=== PATIENT | female | born 1955 | race Caucasian/White ===

== ENCOUNTER 2019-10-05 05:42 | Outpatient (RCR) | payer BC ==
[~2019-10-05] VITALS: Ht 160 cm; Wt 60.2 kg
[2019-10-05 09:23] VITALS: BP 120/71
[2019-10-05 09:48] LABS: BASOPHILS % (AUTO) 0 % (0-10); EOSINOPHILS % (AUTO) 0 % (0-10); HEMATOCRIT 40 % (35-52); HEMOGLOBIN 13.7 G/DL (11.5-16.0); LYMPHOCYTES # (AUTO) 1.1 X 10^3 (1.0-4.0); LYMPHOCYTES % (AUTO) 21 % (12-44); MEAN CORPUSCULAR HEMOGLOBIN 29 PG (25-34); MEAN CORPUSCULAR HGB CONC 34 G/DL (32-36); MEAN CORPUSCULAR VOLUME 85 FL (80-99); MEAN PLATELET VOLUME 8.8 FL (7.4-10.4); MONOCYTES # (AUTO) 0.2 X 10^3 (0.0-1.0); MONOCYTES % (AUTO) 4 % (0-12); NEUTROPHILS # (AUTO) 3.7 X 10^3 (1.8-7.8); NEUTROPHILS % (AUTO) 74 % (42-75); PLATELET COUNT 395 10^3/uL (130-400); RED CELL DISTRIBUTION WIDTH 13.4 % (10.0-14.5); WHITE BLOOD COUNT 5.1 10^3/uL (4.3-11.0)
[2019-10-05 10:02] LABS: BUN/CREATININE RATIO 13; CALCIUM 9.1 MG/DL (8.5-10.1); CARBON DIOXIDE 25 MMOL/L (21-32); CHLORIDE 99 MMOL/L (98-107); CREATININE SERUM 0.93 MG/DL (0.60-1.30); GFR ESTIMATED > 60; GLUCOSE 185 MG/DL (70-105); POTASSIUM 2.6 MMOL/L (3.6-5.0); SODIUM 136 MMOL/L (135-145)
[2019-10-05] MEDS ORDERED: DULO60CA6 PO (10:57)
[2019-10-05] MEDS ORDERED: TOPI100T11 PO (10:57)
[2019-10-05] MEDS ORDERED: HYDR25TA4 PO (10:57)
[2019-10-05] MEDS ORDERED: PARO40TA PO (10:57)
[2019-10-05] MEDS ORDERED: GABA-486 PO (10:57)
[2019-10-05] MEDS ORDERED: MONT10TA21 PO (10:57)
[2019-10-05] MEDS ORDERED: PENT100C3 PO ×2 (10:57)
[2019-10-05] MEDS ORDERED: TRAM50TA3 PO (10:57)
[2019-10-05] MEDS ORDERED: ALPR0.5T PO (10:57)
== END 2019-10-05 11:10 | disposition home or self-care (01) ==
LOC: PREOP 05:42
PROVIDERS: ATTEND Otolaryngology Otolaryngology/Facial Plastic Surgery
DX: Z01.812 Encounter for preprocedural laboratory examination (principal); J32.9 Chronic sinusitis, unspecified; J34.2 Deviated nasal septum; J34.3 Hypertrophy of nasal turbinates; T70.1XXA Sinus barotrauma, initial encounter; Z20.828 Contact with and (suspected) exposure to other viral communicable diseases
CPT/HCPCS: 80048; 85025; 87081; 93005; U0002; 36415; 87635

== ENCOUNTER 2019-10-08 06:48 | Day surgery (SDC) | payer BC ==
[~2019-10-08] VITALS: Ht 160 cm; Wt 60.2 kg
[2019-10-08] VITALS (10 sets, daily range): BP systolic 110–154; BP diastolic 60–95
[~2019-10-08 06:48] MED LIST: ALPR0.5T PO; DULO60CA6 PO; GABA-486 PO; HYDR25TA4 PO; MONT10TA21 PO; PARO40TA PO; PENT100C3 PO; TOPI100T11 PO; TRAM50TA3 PO
[2019-10-08] MEDS ORDERED: HYDROCORTISONE 100 MG/2 ML (Solu-CORTEF) VIAL IV ONE (07:30)
[2019-10-08] MEDS ORDERED: LEVOFLOXACIN 500 MG/100 ML IV 100 ML IV ONE (07:30)
[2019-10-08] MEDS: LACTATED RINGERS 1,000 ML IV PRN ×2 (07:41→09:09)
--- NOTE | 2019-10-08 07:54 | Progress Note-Pre Operative ---
Pre-Operative Progress Note H&P Reviewed The H&P was reviewed, patient examined and no changes noted. Date Seen by Provider: Oct 08, 2019 Time Seen by Provider: 07:45 Date H&P Reviewed: Oct 08, 2019 Time H&P Reviewed: 07:45 Pre-Operative Diagnosis: Bilat Chronic Sinusitis, Bilat HYper of INf Turbs, Dev Septum NAHUM HARVEY MD Oct 08, 2019 07:54
--- OUTSIDE RECORDS SUMMARY | 2019-10-08 08:01 | XMS REPORT ---
Author Author [facility] Medic al Staff, NIKI Martinez Organization [facility] Address [address] [place], [place] [id number] Phone [phone] Summary purpose TRANSITION OF CARE AUTO GENERATION Chief Complaint and Reason for Visit No authorized Reason for Visit (Admitting Diagnosis) is available for this visit . Problem list No authorized problems tracked for continuity of care are available for this vis it. Encounters No authorized problems tracked for encounter diagnoses are available for this vi sit. Medications No medications recorded for this patient visit Allergies, adverse reactions, alerts Allergen Category Ingredient Status Reaction Severity Onset No Known Drug Allergy No known drug allergies No known drug irma rgies Confirmed or Verified No known food allergies No known food allergies No known food al lergies Confirmed or Verified Immunizations No immunizations recorded for this patient visit Relevant diagnostic tests and/or laboratory data No authorized results are available for this patient visit History of procedures No procedures recorded for this patient visit. Functional status No functional or cognitive status observations are available for this visit. Vital signs No authorized vital signs are available for this visit. Social history No Social History or smoking status observations were recorded for this visit. ( Unknown if ever smoked.) Treatment Plan No treatment plan text is available for this visit. Hospital discharge instructions No discharge instruction text is available for this visit.
--- OUTSIDE RECORDS SUMMARY | 2019-10-08 08:01 | XMS REPORT ---
Author Author [facility] Medic al Staff, NIKI Martinez Organization [facility] Address [address] [place], [place] [id number] Phone [phone] Summary purpose TRANSITION OF CARE AUTO GENERATION [...] for this patient visit History of procedures Procedure Code Code Type Description Date Performed Performing Physician [id number] CPT-4 CT MAXILLOFACIAL W/O DYE 10-13-2015 Lyndsay HARVEY Functional status No functional or cognitive status [...]
--- OUTSIDE RECORDS SUMMARY | 2019-10-08 08:02 | XMS REPORT | Clinical Summary ---
Author Author Caitlin, Juliana Martinez Organization [facility] Address Unknown Phone Unavailable Allergies, Adverse Reactions, Alerts Allergy Name Reaction Description Start Date Severity Status Pr ovider No Known Allergies ALFREDO Yanez Conditions or Problems Problem Name Problem Code Onset Date Status Entry Date Provider Comment Standard Description Annotate BRONCHITIS 490 Inactive Hugo Restrepo MD Bronchitis, not specified as acute or chronic FH COLON CANCER V16.0 Active Carlton Hu MD Family history of malignant neoplasm of gastrointestinal tract FH DIABETES V18.0 Active Carlton Hu MD Family history of diabetes mellitus MAXILLARY SINUSITIS 473.0 Resolved Marcy De La Rosa MD PhD Chronic maxillary sinusitis SEASONAL ALLERGIC RHINITIS 477.9 Active 1 Carlton Hu MD Allergic rhinitis, cause unspecified BRONCHITIS, ACUTE WITH MILD BRONCHOSPASM 466.0 Resolv ed Marcy De La Rosa MD PhD Acute bronchitis DYSPNEA 786.05 Resolved Marcy De La Rosa MD PhD Shortness of breath FIBROMYALGIA 729.1 Active Carlton Hu MD Myalgia and myositis, unspecified DIVERTICULOSIS, COLON 562.10 Active Carlton loera MD Diverticulosis of colon (without mention of hemorrhage) HYPERLIPIDEMIA 272.4 Active Carlton Hu MD Other and unspecified hyperlipidemia HEALTH SCREENING V70.0 Resolved Marcy De La Rosa MD PhD Routine general medical examination at a health care facility MAMMOGRAM, ABNORMAL 793.80 Active Carlton linda MD Abnormal mammogram, unspecified CHEST WALL PAIN, ACUTE 786.52 Resolved Liv De La Rosa MD PhD Painful respiration PNEUMONIA 486 Resolved Marcy De La Rosa MD PhD Pneumonia, organism unspecified SINUSITIS 473.9 Resolved Marcy De La Rosa MD PhD Unspecified sinusitis (chronic) CONTACT DERMATITIS 692.9 Resolved Marcy Means PhD Contact dermatitis and other eczema, unspecified cause SINUSITIS, ACUTE 461.9 Resolved Hugo Restrepo MD Acute sinusitis, unspecified CALF PAIN, LEFT 729.5 Active Hugo Restrepo MD Pain in limb SINUSITIS 473.9 Active Carlton Hu MD Unspecified sinusitis (chronic) HEALTH SCREENING V70.0 Active Carlton Hu MD Routine general medical examination at a health care facility HEADACHE 784.0 Active Carlton Hu MD Headache DEPRESSION 311 Refinement Carlton Hu MD Depressive disorder, not elsewhere classified Major depressive disorder, single episode, moderate 311 20 13/04/19 Active Carlton Hu MD Depressive disorder, not els ewhere classified Menopause 627.2 Active Carlton Hu MD Symptomatic menopausal or female climacteric states Headache, chronic 784.0 Active Carlton uH MD Headache Dermatitis, atopic 691.8 Active Carlton beltrán MD Other atopic dermatitis and related conditions Headache 784.0 Active Carlton Hu MD Headache Preventive health care V70.0 Active Carlton bustamante MD Routine general medical examination at a health care facility HEALTH EXAMINATION OF DEFINED SUBPOPULATION V70.5 Act nael Monika [facility] examination of defined subpopulat ions Hip pain, left 719.45 Active Ridge Bess DO Pain in joint involving pelvic region and thigh Pelvic pain, acute 789.09 Resolved Hugo gilmore MD Abdominal pain, other specified site; multiple sites Sinusitis 473.9 Resolved Hugo Restrepo MD Unspecified sinusitis (chronic) Bronchitis-Acute 466.0 Resolved Hugo Restrepo MD Acute bronchitis URI - acute 465.9 Resolved Hugo Restrepo MD Acute upper respiratory infections of unspecified site Pharyngitis acute 462 Resolved Hugo Restrepo MD Acute pharyngitis Rhinitis, acute 460 Resolved Hugo Means Acute nasopharyngitis [common cold] Sinusitis 473.9 Resolved Hugo Restrepo MD Unspecified sinusitis (chronic) Bronchitis 490 Resolved Hugo Restrepo MD Bronchitis, not specified as acute or chronic Upper respiratory infection 465.9 Active Hugo Restrepo MD Acute upper respiratory infections of un specified site Pharyngitis 462 Active Hugo Restrepo MD Acute pharyngitis Onychomycosis 112.3 Active Carlton Hu MD Candidiasis of skin and nails Sinusitis - acute 461.9 Active Elise Garcia APRN Acute sinusitis, unspecified Angina pectoris 413.9 Active Carlton Means Other and unspecified angina pectoris URI 465.9 Inactive Ridge Bess DO Ac duane upper respiratory infections of unspecified site Body Mass Index 35.0-35.9 Adult Refinement 2017 Ridge Bess DO Body Mass Index 35.0-35.9, adult BMI 34-34.9 Refinement Cherelle Torres RN Body Mass Index 35.0-35.9, adult BMI 35-35.9 Active David Lopes APRN Body Mass Index 35.0-35.9, adult Upper respiratory infection, viral 465.9 Active 2 Perez Mora MD Acute upper respiratory infections of un specified site Obesity Class I (BMI 30-34.9) Refinement Jose Torres RN Obesity, unspecified Morbid obesity due to excess calories Refinemen t David Lopes APRN Obesity, unspecified Obesity Class II (BMI 35-39.9) Active Cartlon Hu MD Obesity, unspecified Hypertension, systolic 401.9 Active Carlton bustamante MD Unspecified essential hypertension BRONCHITIS ICD-490 Inactive Hugo Restrepo MD 201 04/09/17 MAXILLARY SINUSITIS ICD-473.0 Inactive Marcy De La Rosa MD PhD BRONCHITIS, ACUTE WITH MILD BRONCHOSPASM ICD-466.0 Inactive Marcy De La Rosa MD PhD DYSPNEA ICD-786.05 Inactive Marcy De La Rosa MD P HEALTH SCREENING ICD-V70.0 Inactive Marcy ya MD PhD CHEST WALL PAIN, ACUTE ICD-786.52 Inactive Liv De La Rosa MD PhD PNEUMONIA ICD-486 Inactive Marcy De La Rosa MD PhD 201 06/01/09 SINUSITIS ICD-473.9 Inactive Marcy De La Rosa MD Ph D CONTACT DERMATITIS ICD-692.9 Inactive Marcy crisostomo MD PhD SINUSITIS, ACUTE ICD-461.9 Inactive Hugo dominguez MD Pelvic pain, acute ICD-789.09 Inactive Hugo Restrepo MD Sinusitis ICD-473.9 Inactive Hugo Restrepo MD Bronchitis-Acute ICD-466.0 Inactive Hugo dominguez MD URI - acute ICD-465.9 Inactive Hugo Restrepo MD Pharyngitis acute ICD-462 Inactive Hugo gore MD Rhinitis, acute ICD-460 Inactive Hugo Ochoa MD Sinusitis ICD-473.9 Inactive Hugo Restrepo MD Bronchitis ICD-490 Inactive Hugo Restrepo MD 201 10/02/29 URI ICD-465.9 Inactive Ridge Bess DO Medication List Medication Instructions Start Date Stop Date Generic Name NDC Status Provider Patient Instruction CYMBALTA 30 MG ORAL CAPSULE DELAYED RELEASE PARTICLES 1 cap by mouth daily for depression DULOXETINE HCL 71810826062 No Longer Active Carlton Hu MD Active CYMBALTA 60 MG ORAL CAPSULE DELAYED RELEASE PARTICLES 1 cap by mouth daily for mood and pain DULOXETINE HCL 32269651827 Active Carlton Hu MD Active TUSSIONEX PENNKINETIC ER 10-8 MG/5ML ORAL SUSPENSION E XTENDED RELEASE 5ml po q12hr PRN Cough HYDROCOD POLST-CHLORPHEN POLST 87566550648 Active 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 MARKET GARDENER Active PREDNISONE 20 MG ORAL TABLET Take 2 tabs day 1 and 2 and 1 t ab days 3 and 4 PREDNISONE 88417282371 No Longer Active 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 MARKET GARDENER Active DOXYCYCLINE HYCLATE 100 MG ORAL CAPSULE 1 cap by mouth twice latasha ly DOXYCYCLINE HYCLATE 67782528058 No Longer Active David Lopes APRN Active TOPAMAX 100 MG ORAL TABLET Take 1 tablet po bid TOPIRAMATE 58049915595 No Longer Active 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 MARKET GARDENER Active TUSSIONEX PENNKINETIC ER 10-8 MG/5ML ORAL SUSPENSION E XTENDED RELEASE 5ml po q12hr PRN Cough HYDROCOD POLST-CHLORPHEN POLST 5 2658857528 No Longer Active 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 MARKET GARDENER Active AUGMENTIN 875-125 MG ORAL TABLET 1 po BID x 10 days 20 18/04/16 AMOXICILLIN-POT CLAVULANATE 26961458876 No Longer Active David Lopes MARKET GARDENER Active PREDNISONE 50 MG ORAL TABLET Take 50 mg dialy for 6 day s 7 PREDNISONE 43032699935 No Longer Active 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 RICEN Active TUSSIONEX PENNKINETIC ER 10-8 MG/5ML ORAL SUSPENSION E XTENDED RELEASE 5ml po q12hr PRN Cough HYDROCOD POLST-CHLORPHEN POLST 5 7497615964 No Longer Active Cherelle Torres RN Active PREDNISONE 20 MG ORAL TABLET two tabs by mouth today, then one tab by mouth days two and three and four PREDNISONE 50396230572 No Lo nger Active Cherelle Torres RN Active AZITHROMYCIN 250 MG ORAL TABLET 2 po qd x 1 day, then 1 po q d x 4 days AZITHROMYCIN 59737970231 No Longer Active Ridge Bses DO Active PREDNISONE 20 MG ORAL TABLET 2 po qd x 5 days P REDNISONE 06008982954 No Longer Active Perez Mora MD Active PROAIR HFA 108 (90 BASE) MCG/ACT INHALATION AEROSOL SO LUTION 2 puffs four times a day as needed ALBUTEROL SULFATE 14814635670 No Long er Active Becky AGUILARA Active ASPIRIN 81 MG ORAL TABLET 1 po qd ASPIRIN 30093986983 Active Carlton Hu MD Active PREDNISONE 20 MG ORAL TABLET 1 tab twice daily for 3 d ay, then one daily for three days PREDNISONE 31511967937 No Longer Active Carlton Hu MD Active AUGMENTIN 875-125 MG ORAL TABLET 1 po BID x 10 days 16/03/22 AMOXICILLIN-POT CLAVULANATE 76668593089 No Longer Active Elise Garcia APRN Active TERBINAFINE HCL 250 MG ORAL TABLET 1 qDay for nail fungus 7 TERBINAFINE HCL 72062282542 No Longer Active Carlton Hu MD A ctive AMOXICILLIN 500 MG ORAL CAPSULE 1 cap by mouth three times a day AMOXICILLIN 66047836478 No Longer Active Carlton Hu MD Active ELMIRON 100 MG ORAL CAPSULE 2 tablets in the am and 1 tablet at hs PENTOSAN POLYSULFATE SODIUM 65617432053 No Longer Active Robert Hu MD Active MUCINEX D 60-600 MG ORAL TABLET EXTENDED RELEASE 12 HOUR 1 t ab po q am PSEUDOEPHEDRINE-GUAIFENESIN 10143742212 No Longer Act nael Carlton Hu MD Active MUCINEX DM MAXIMUM STRENGTH 60-1200 MG ORAL TABLET EXT ENDED RELEASE 12 HOUR 1 tab po q am DEXTROMETHORPHAN-GUAIFENESIN 99106248284 No Longer Active Carlton Hu MD Active TUSSIONEX PENNKINETIC ER 10-8 MG/5ML ORAL SUSPENSION E XTENDED RELEASE 5ml po q12hr PRN Cough HYDROCOD POLST-CHLORPHEN POLST 5 0088658700 No Longer Active Carlton Hu MD Active POTASSIUM CHLORIDE ER 20 MEQ ORAL TABLET EXTENDED RELE ASE Take 1 by mouth 4 times daily for 7 days POTASSIUM CHLORIDE 23387685254 No Longer Active Carlton Hu MD Active ZITHROMAX 250 MG ORAL TABLET 2 po today, then 1 po q days 2-5 20 14/09/04 AZITHROMYCIN 09541223890 No Longer Active Elise Garcia APRN Active TUSSIONEX PENNKINETIC ER 10-8 MG/5ML ORAL SUSPENSION E XTENDED RELEASE 5 ml twice a day as needed for cough HYDROCOD POLST-CHLORPH EN POLST 49822122376 No Longer Active Elise Garcia APRN Active MONTELUKAST SODIUM 10 MG ORAL TABLET 1 po daily for Allergy MONTELUKAST SODIUM 01989956723 Active Carlton Hu MD Ac tive TUSSIONEX PENNKINETIC ER 10-8 MG/5ML ORAL SUSPENSION E XTENDED RELEASE 5ml po q12hr PRN Cough HYDROCOD POLST-CHLORPHEN POLST 5 0412663571 No Longer Active Hugo Restrepo MD Active GABAPENTIN 100 MG ORAL CAPSULE 1 po BID for fibromyalgia GABAPENTIN 76142810328 Active Carlton Hu MD Active LYRICA 100 MG ORAL CAPSULE Take 1 tab po BID for fibromyalgia 20 11/08/21 PREGABALIN 39601187737 No Longer Active Elise Garcia APRN A ctive PREDNISONE 20 MG ORAL TABLET 2 tabs daily for 3 days, 1 tab daily for 3 days, 1/2 tab daily for 2 days PREDNISONE 17959000530 No Longer Active Venullina Cesarl MARKET GARDENER Active TUSSIONEX PENNKINETIC ER 10-8 MG/5ML ORAL SUSPENSION E XTENDED RELEASE 5 mL PO q 12 hrs PRN cough HYDROCOD POLST-CHLORPHEN POLST 860366 65709 No Longer Active Jillina Frazell MARKET GARDENER Active FLUTICASONE PROPIONATE 50 MCG/ACT NASAL SUSPENSION 2 s prays each nostril daily until bottle is empty FLUTICASONE PROPIONATE 587925607 99 No Longer Active Jillina Frazell MARKET GARDENER Active ASMANEX 60 METERED DOSES 220 MCG/INH INHALATION AEROSO L POWDER BREATH ACTIVATED 1 puff bid with rinse after MOMETASONE FUROATE 2759782 4102 No Longer Active Jillina Frazell MARKET GARDENER Active ZITHROMAX Z-REYNA 250 MG ORAL TABLET 2 today, then 1 daily for 4 d ays AZITHROMYCIN 39851068844 No Longer Active Elise Garcia APRN Active TUSSIONEX PENNKINETIC ER 10-8 MG/5ML ORAL SUSPENSION E XTENDED RELEASE 5ml po q12hr PRN Cough HYDROCOD POLST-CHLORPHEN POLST 5 6229600816 No Longer Active Elise Garcia APRN Active PREDNISONE 20 MG ORAL TABLET 2 tabs daily for 3 days, 1 tab daily for 3 days, 1/2 tab daily for 2 days PREDNISONE 33082740725 No Longer Active Diya De Guzman APRN Active AMOXICILLIN 500 MG ORAL CAPSULE 2 po BID x 10 days 201 09/29/08 AMOXICILLIN 76018034746 No Longer Active Diya De Guzman APRN Act nael SINGULAIR 10 MG ORAL TABLET 1 po qday for allergies 20 14/01/12 MONTELUKAST SODIUM 11137047515 No Longer Active Carlton Hu MD Active LEVAQUIN 500 MG ORAL TABLET 1 tablet by mouth daily 20 13/09/24 LEVOFLOXACIN 93034126221 No Longer Active Carlton Hu MD Acti ve FLUTICASONE PROPIONATE 50 MCG/ACT NASAL SUSPENSION 2 s prays each nostril daily for 2 weeks, then 1 spray each nostril daily. FLUTICASONE PROPIONATE 79263630510 Active Carlton Hu MD Active ZITHROMAX 250 MG ORAL TABLET 2 po today, then 1 po q days 2-5 20 13/08/10 AZITHROMYCIN 89963156657 No Longer Active Elise Garcia APRN Active XANAX 0.5 MG ORAL TABLET one tablet by mouth daily prn anxiety 2015 ALPRAZOLAM 07772029175 Active ALFREDO Holly Active CEFDINIR 300 MG ORAL CAPSULE 1 po BID x 10 days CEFDINIR 76248749883 No Longer Active Carlton Hu MD Active ZOCOR 40 MG ORAL TABLET 1 tab by mouth daily SI MVASTATIN 43107580578 No Longer Active Carlton Hu MD Active CYCLOBENZAPRINE HCL 10 MG ORAL TABLET 1 tablet by mouth BID prn had pain CYCLOBENZAPRINE HCL 40496043730 No Longer Active Jayden Hu MD Active LEVOFLOXACIN 500 MG ORAL TABLET 1 tab PO daily x 10 days LEVOFLOXACIN 30301304544 No Longer Active Carlton Hu MD Acti ve PREDNISONE 20 MG ORAL TABLET 3 tab PO qd x 2d, 2 tab P O qd x 2d, 1 tab PO qd x 2d, 1/2 tab PO qd x 2d PREDNISONE 81720147053 No Lo nger Active Carlton Hu MD Active FLUTICASONE PROPIONATE 50 MCG/ACT NASAL SUSPENSION 1 t o 2 sprays each nostril daily FLUTICASONE PROPIONATE 13412261983 No Longer Ac tive Blaine HERNANDEZ Active CHERATUSSIN AC 100-10 MG/5ML ORAL SYRUP 1 tsp by mouth every 4 hours as needed for cough GUAIFENESIN-CODEINE 53474629896 No Longe r Active Blaine HERNANDEZ Active PROMETHAZINE-CODEINE 6.25-10 MG/5ML ORAL SYRUP 1 tsp b y mouth every 6 hours if needed for cough PROMETHAZINE-CODEINE 42071043832 No Longer Active Blaine HERNANDEZ Active CHERATUSSIN AC 100-10 MG/5ML ORAL SYRUP 1 tsp by mouth every 4 hours as needed for cough GUAIFENESIN-CODEINE 66677368496 No Longe r Active Blaine HERNANDEZ Active ZITHROMAX Z-REYNA 250 MG ORAL TABLET 2 today, then 1 daily for 4 d ays AZITHROMYCIN 89346318240 No Longer Active Columba Raida Act nael ZITHROMAX 250 MG ORAL TABLET 2 po today, then 1 po q days 2-5 20 14/03/21 AZITHROMYCIN 96744793689 No Longer Active Carlton Hu MD Active ZITHROMAX Z-REYNA 250 MG ORAL TABLET 2 today, then 1 daily for 4 d ays AZITHROMYCIN 90661056912 No Longer Active Columba Raida Act nael AUGMENTIN 875-125 MG ORAL TABLET 1 po BID x 10 days 13/01/20 AMOXICILLIN-POT CLAVULANATE 33440331931 No Longer Active Diya Daphnebrayan KHAN Active ZITHROMAX 250 MG ORAL TABLET 2 po today, then 1 po q days 2-5 20 12/08/14 AZITHROMYCIN 06208347795 No Longer Active Carlton Hu MD Active TRAMADOL HCL 50 MG ORAL TABLET 1 po tid with ES Tylenol TRAMADOL HCL 29705244753 Active ALFREDO Holly Active PREMARIN 0.625 MG ORAL TABLET TAKE 1 TAB BY MOUTH DAILY ESTROGENS CONJUGATED 36023246207 No Longer Active Ridge Bess DO A ctive CYMBALTA 30 MG ORAL CAPSULE DELAYED RELEASE PARTICLES 1 cap by mouth daily DULOXETINE HCL 53711748085 No Longer Active Ridge tam DO Active AMOXICILLIN 500 MG ORAL CAPSULE 1 tab by mouth 3 times daily x 10 days AMOXICILLIN 02083972374 No Longer Active Carlton bustamante MD Active AMOXICILLIN 500 MG ORAL CAPSULE 1 tab by mouth 3 times daily x 10 days AMOXICILLIN 02328382678 No Longer Active Carlton bustamante MD Active PROMETHAZINE-CODEINE 6.25-10 MG/5ML ORAL SYRUP 1 tsp b y mouth every 8 hours prn cough PROMETHAZINE-CODEINE 21817970545 No Longer Acti ve Carlton Hu MD Active MEDROL 4 MG ORAL TABLET THERAPY PACK 6 pills x 1 day, then 5 pills x 1 day then 4 pills x 1 day, then 3 pills x 1 day, then 2 pills x 1 day, then 1 pill x 1 day, then stop METHYLPREDNISOLONE 84475347937 No Long er Active Perez Mora MD Active AZITHROMYCIN 250 MG ORAL TABLET 2 po qd x 1 day, then 1 po q d x 4 days AZITHROMYCIN 46780114963 No Longer Active Perez Ambriz MD Active SYMBICORT 160-4.5 MCG/ACT INHALATION AEROSOL 2 puffs bid wit h rinse after BUDESONIDE-FORMOTEROL FUMARATE 09793355503 N o Longer Active Perez Mora MD Active LYRICA 75 MG ORAL CAPSULE TAKE 1 CAPSULE BY MOUTH TWICE DAILY PREGABALIN 88242584657 No Longer Active Carlton Hu MD Acti ve TOPAMAX 25 MG ORAL TABLET 1 qHS x 1 week, then 1 BID x 1 week, then 1 qAM and 2 qHS x 1 week, then 2 BID (migraine prevention) T OPIRAMATE 37812363818 No Longer Active Jerica FUENTES Active TOPAMAX 50 MG ORAL TABLET take 1 tab po BID for migraines. 07/02 TOPIRAMATE 36558443304 No Longer Active Jerica FUENTES Active TRIAMCINOLONE ACETONIDE 0.1 % EXTERNAL CREAM apply three roger es daily prn rash TRIAMCINOLONE ACETONIDE 25238180398 No Longer Active Carlton Hu MD Active PAXIL 40 MG ORAL TABLET take 1 tab po qday for depression 0 PAROXETINE HCL 72511807824 Active Carlton Hu MD Active CHERATUSSIN AC 100-10 MG/5ML ORAL SYRUP 5ml po q6hr PRN Cough 20 13/04/14 GUAIFENESIN-CODEINE 84252691069 No Longer Active Carlton Hu MD Active MEDROL 4 MG ORAL TABLET THERAPY PACK 6 tabs on day 1, 5 tabs on day 2, 4 tabs on day 3, 3 tabs on day 4, 2 tabs on day 5, 1 tab on day 6 2013 METHYLPREDNISOLONE 09532696310 No Longer Active Perez Mora MD Active AZITHROMYCIN 250 MG ORAL TABLET 2 po qd x 1 day, then 1 po q d x 4 days AZITHROMYCIN 33668633449 No Longer Active Perez Ambriz MD Active PROPRANOLOL HCL 60 MG ORAL TABLET 1 PO Q D PROPRANOLOL HCL 65747786206 No Longer Active Perez Mora MD Activ e CHERATUSSIN AC 100-10 MG/5ML ORAL SYRUP take one tsp po Q 6h ours prn cough GUAIFENESIN-CODEINE 05294537011 No Longer Active Zia Mora MD Active AUGMENTIN 875-125 MG ORAL TABLET 1 tab by mouth twice daily with food AMOXICILLIN-POT CLAVULANATE 06030875210 No Longer Act nael Mora MD Active CHERATUSSIN AC 100-10 MG/5ML ORAL SYRUP 1 tsp by mouth every 4 hours as needed for cough GUAIFENESIN-CODEINE 39100994322 No Longe r Active Hugo Restrepo MD Active ACETAMINOPHEN-CODEINE #3 300-30 MG ORAL TABLET 1 PO Q 4-6 HRS CA N PAIN ACETAMINOPHEN-CODEINE 12100002658 No Longer Active Hugo Restrepo MD Active LEVAQUIN 500 MG ORAL TABLET take one po QD LEVO FLOXACIN 50437778634 No Longer Active Griffin HERNANDEZ Active PREDNISONE 20 MG ORAL TABLET Take 3 tabs daily for 3 d ays, 2 tabs daily for 3 days, 1 tab daily for 3 days, 1/2 tab daily for 3 days 11/07 PREDNISONE 20340527256 No Longer Active Carlton Hu MD Acti ve AVELOX 400 MG ORAL TABLET 1 tab by mouth daily MOXIFLOXACIN HCL 88089706932 No Longer Active Carlton Hu MD Active CHERATUSSIN AC 100-10 MG/5ML ORAL SYRUP 1 tsp by mouth every 4 hours as needed for cough GUAIFENESIN-CODEINE 11930144124 No Longe r Active Hugo Restrepo MD Active AVELOX 400 MG ORAL TABLET 1 tab by mouth daily MOXIFLOXACIN HCL 91186731628 No Longer Active Marcy De La Rosa MD PhD Active TERBINAFINE HCL 250 MG ORAL TABLET 1 qDay T ERBINAFINE HCL 79801004697 No Longer Active Marcy De La Rosa MD PhD Active CHERATUSSIN AC 100-10 MG/5ML ORAL SYRUP 1 tsp by mouth every 4 hours as needed for cough GUAIFENESIN-CODEINE 63088647956 No Longe r Active Marcy De La Rosa MD PhD Active AVELOX 400 MG ORAL TABLET 1 tab by mouth daily MOXIFLOXACIN HCL 18373992992 No Longer Active Marcy De La Rosa MD PhD Active HYDROCODONE-ACETAMINOPHEN 5-325 MG ORAL TABLET 1 po q 6hr PRN co ugh HYDROCODONE-ACETAMINOPHEN 39130760855 No Longer Active Marcy De La Rosa MD PhD Active PREDNISONE 20 MG ORAL TABLET 2 tabs daily for 3 days, 1 tab daily for 3 days, 1/2 tab daily for 2 days PREDNISONE 37879267219 No Longer Active Carlton Hu MD Active CEFDINIR 300 MG ORAL CAPSULE by mouth twice a day 2011 CEFDINIR 95690249373 No Longer Active Carlton Hu MD Acti ve HYDROCHLOROTHIAZIDE 25 MG ORAL TABLET 1 TAB PO DAILY HYDROCHLOROTHIAZIDE 12179712025 Active Carlton Hu MD A ctive ACETAMINOPHEN-CODEINE #3 300-30 MG ORAL TABLET 1 tablet po q 4-6 hrs prn pain ACETAMINOPHEN-CODEINE 33579610051 No Longer Active Ridge Bess DO Active ZITHROMAX 250 MG ORAL TABLET 2 po today, then 1 po q days 2-5 20 03/07/07 AZITHROMYCIN 94155977128 No Longer Active Carlton Hu MD Active CHERATUSSIN AC 100-10 MG/5ML ORAL SYRUP take 1 tsp po q4-6 h ours prn cough GUAIFENESIN-CODEINE 36110387519 No Longer Active Jayden Hu MD Active ACETAMINOPHEN-CODEINE #3 300-30 MG ORAL TABLET 1 PO Q 4-6 HR PRN PAIN ACETAMINOPHEN-CODEINE 56582621587 No Longer Active Arnol Hu MD Active LORTAB 7.5-500 MG/15ML ORAL ELIXIR 7.5 ml po q 4 hour prn cough HYDROCODONE-ACETAMINOPHEN 34311234468 No Longer Active Carlton Hu MD Active PREDNISONE 20 MG ORAL TABLET 1 po bid 3 days, then 1 po q day 3 days PREDNISONE 70569318344 No Longer Active Carlton Hu MD Active CEFDINIR 300 MG ORAL CAPSULE by mouth twice a day 2011 CEFDINIR 85816065531 No Longer Active Carlton Hu MD Acti ve CEFDINIR 300 MG ORAL CAPSULE by mouth twice a day 2010 CEFDINIR 58742711603 No Longer Active Carlton Hu MD Acti ve CEFDINIR 300 MG ORAL CAPSULE by mouth twice a day 2010 CEFDINIR 49326019215 No Longer Active Carlton Hu MD Acti ve TESSALON PERLES 100 MG ORAL CAPSULE 1 tablet by mouth 3 times daily as needed for cough BENZONATATE 99807487056 No Longer Active Carlton Hu MD Active CEFDINIR 300 MG ORAL CAPSULE by mouth twice a day 2010 CEFDINIR 14128575735 No Longer Active Carlton Hu MD Acti ve ZITHROMAX Z-REYNA 250 MG ORAL TABLET 2 today, then 1 daily for 4 d ays AZITHROMYCIN 37994795641 No Longer Active Hugo Restrepo MD Active TESSALON PERLES 100 MG ORAL CAPSULE 1 tablet by mouth 3 times daily as needed for cough TESSALON PERLES 100 MG ORAL CAPSULE 17775 7 BENZONATATE Inactive PREDNISONE 20 MG ORAL TABLET 1 po bid 3 days, then 1 po q day 3 days PREDNISONE 20 MG ORAL TABLET 172117 PREDNISONE [place] ctive LORTAB 7.5-500 MG/15ML ORAL ELIXIR 7.5 ml po q 4 hour prn cough LORTAB 7.5-500 MG/15ML ORAL ELIXIR HYDROCODONE-A CETAMINOPHEN Inactive ACETAMINOPHEN-CODEINE #3 300-30 MG ORAL TABLET 1 PO Q 4-6 HR PRN PAIN ACETAMINOPHEN-CODEINE #3 300-30 MG ORAL TABLET ACETAMINOPHEN-CODEINE Inactive CHERATUSSIN AC 100-10 MG/5ML ORAL SYRUP take 1 tsp po q4-6 h ours prn cough CHERATUSSIN AC 100-10 MG/5ML ORAL SYRUP 540753 GUAIFENESIN-CODEINE Inactive ACETAMINOPHEN-CODEINE #3 300-30 MG ORAL TABLET 1 tablet po q 4-6 hrs prn pain ACETAMINOPHEN-CODEINE #3 300-30 MG ORAL TABLET ACETAMINOPHEN-CODEINE Inactive HYDROCODONE-ACETAMINOPHEN 5-325 MG ORAL TABLET 1 po q 6hr PRN co ugh HYDROCODONE-ACETAMINOPHEN 5-325 MG ORAL TABLET 943384 HYDROCODONE-ACETAMINOPHEN Inactive AVELOX 400 MG ORAL TABLET 1 tab by mouth daily AVELOX 400 MG ORAL TABLET 488379 MOXIFLOXACIN HCL Inactive CHERATUSSIN AC 100-10 MG/5ML ORAL SYRUP 1 tsp by mouth every 4 hours as needed for cough CHERATUSSIN AC 100-10 MG/5ML ORAL SYRUP 9 63691 GUAIFENESIN-CODEINE Inactive TERBINAFINE HCL 250 MG ORAL TABLET 1 qDay 07/08 TERBINAFINE HCL 250 MG ORAL TABLET 676899 TERBINAFINE HCL Inactive CHERATUSSIN AC 100-10 MG/5ML ORAL SYRUP 1 tsp by mouth every 4 hours as needed for cough CHERATUSSIN AC 100-10 MG/5ML ORAL SYRUP 9 19884 GUAIFENESIN-CODEINE Inactive ACETAMINOPHEN-CODEINE #3 300-30 MG ORAL TABLET 1 PO Q 4-6 HRS CA N PAIN ACETAMINOPHEN-CODEINE #3 300-30 MG ORAL TABLET ACETAMINOPHEN-CODEINE Inactive CHERATUSSIN AC 100-10 MG/5ML ORAL SYRUP 1 tsp by mouth every 4 hours as needed for cough CHERATUSSIN AC 100-10 MG/5ML ORAL SYRUP 9 04454 GUAIFENESIN-CODEINE Inactive AUGMENTIN 875-125 MG ORAL TABLET 1 tab by mouth twice daily with food AUGMENTIN 875-125 MG ORAL TABLET 248308 AMOXICIL MADELINE-POT CLAVULANATE Inactive CHERATUSSIN AC 100-10 MG/5ML ORAL SYRUP take one tsp po Q 6h ours prn cough CHERATUSSIN AC 100-10 MG/5ML ORAL SYRUP 293625 GUAIFENESIN-CODEINE Inactive PROPRANOLOL HCL 60 MG ORAL TABLET 1 PO Q D PROPRANOLOL HCL 60 MG ORAL TABLET 668083 PROPRANOLOL HCL Inactive TOPAMAX 50 MG ORAL TABLET take 1 tab po BID for migraines. 07/02 TOPAMAX 50 MG ORAL TABLET 227606 TOPIRAMATE Inacti ve TOPAMAX 25 MG ORAL TABLET 1 qHS x 1 week, then 1 BID x 1 week, then 1 qAM and 2 qHS x 1 week, then 2 BID (migraine prevention) TOPAMAX 25 MG ORAL TABLET 751480 TOPIRAMATE Inactive LYRICA 75 MG ORAL CAPSULE TAKE 1 CAPSULE BY MOUTH TWICE DAILY LYRICA 75 MG ORAL CAPSULE PREGABALIN Inactive SYMBICORT 160-4.5 MCG/ACT INHALATION AEROSOL 2 puffs bid wit h rinse after SYMBICORT 160-4.5 MCG/ACT INHALATION AEROSOL BUDESONIDE- FORMOTEROL FUMARATE Inactive PROMETHAZINE-CODEINE 6.25-10 MG/5ML ORAL SYRUP 1 tsp b y mouth every 8 hours prn cough PROMETHAZINE-CODEINE 6.25-10 MG/ 5ML ORAL SYRUP [id number] PROMETHAZINE-CODEINE Inactive CYMBALTA 30 MG ORAL CAPSULE DELAYED RELEASE PARTICLES 1 cap by mouth daily CYMBALTA 30 MG ORAL CAPSULE DELAYED RELE ASE PARTICLES 319294 DULOXETINE HCL Inactive PREMARIN 0.625 MG ORAL TABLET TAKE 1 TAB BY MOUTH DAILY PREMARIN 0.625 MG ORAL TABLET ESTROGENS CONJUGATED Inactive CHERATUSSIN AC 100-10 MG/5ML ORAL SYRUP 1 tsp by mouth every 4 hours as needed for cough CHERATUSSIN AC 100-10 MG/5ML ORAL SYRUP 9 85907 GUAIFENESIN-CODEINE Inactive PROMETHAZINE-CODEINE 6.25-10 MG/5ML ORAL SYRUP 1 tsp b y mouth every 6 hours if needed for cough PROMETHAZINE-CODEINE 6.25-10 MG/5ML ORAL SYRUP 264772 PROMETHAZINE-CODEINE Inactive CHERATUSSIN AC 100-10 MG/5ML ORAL SYRUP 1 tsp by mouth every 4 hours as needed for cough CHERATUSSIN AC 100-10 MG/5ML ORAL SYRUP 9 25255 GUAIFENESIN-CODEINE Inactive FLUTICASONE PROPIONATE 50 MCG/ACT NASAL SUSPENSION 1 t o 2 sprays each nostril daily FLUTICASONE PROPIONATE 50 MCG/AC T NASAL SUSPENSION [id number] FLUTICASONE PROPIONATE Inactive PREDNISONE 20 MG ORAL TABLET 3 tab PO qd x 2d, 2 tab P O qd x 2d, 1 tab PO qd x 2d, 1/2 tab PO qd x 2d PREDNISONE 20 MG ORAL TAB LET 783432 PREDNISONE Inactive LEVOFLOXACIN 500 MG ORAL TABLET 1 tab PO daily x 10 days LEVOFLOXACIN 500 MG ORAL TABLET 332527 LEVOFLOXACIN Inactive CYCLOBENZAPRINE HCL 10 MG ORAL TABLET 1 tablet by mouth BID prn had pain CYCLOBENZAPRINE HCL 10 MG ORAL TABLET 601443 CYCLOBENZAPRINE HCL Inactive ZOCOR 40 MG ORAL TABLET 1 tab by mouth daily 4 ZOCOR 40 MG ORAL TABLET 793925 SIMVASTATIN Inactive TUSSIONEX PENNKINETIC ER 10-8 MG/5ML ORAL SUSPENSION E XTENDED RELEASE 5ml po q12hr PRN Cough TUSSIONEX PENNKINETI C ER 10-8 MG/5ML ORAL SUSPENSION EXTENDED RELEASE HYDROCOD POLST-CHLORPHEN POLST I nactive ASMANEX 60 METERED DOSES 220 MCG/INH INHALATION AEROSO L POWDER BREATH ACTIVATED 1 puff bid with rinse after ASMANEX 60 M ETERED DOSES 220 MCG/INH INHALATION AEROSOL POWDER BREATH ACTIVATED MOMETASON E FUROATE Inactive FLUTICASONE PROPIONATE 50 MCG/ACT NASAL SUSPENSION 2 s prays each nostril daily until bottle is empty FLUTICASONE PROPIO EFE 50 MCG/ACT NASAL SUSPENSION [id number] FLUTICASONE PROPIONATE Inactive TUSSIONEX PENNKINETIC ER 10-8 MG/5ML ORAL SUSPENSION E XTENDED RELEASE 5 mL PO q 12 hrs PRN cough TUSSIONEX PENNKINETI C ER 10-8 MG/5ML ORAL SUSPENSION EXTENDED RELEASE HYDROCOD POLST-CHLORPHEN POLST I nactive LYRICA 100 MG ORAL CAPSULE Take 1 tab po BID for fibromyalgia 20 11/08/21 LYRICA 100 MG ORAL CAPSULE PREGABALIN Inact nael TUSSIONEX PENNKINETIC ER 10-8 MG/5ML ORAL SUSPENSION E XTENDED RELEASE 5ml po q12hr PRN Cough TUSSIONEX PENNKINETI C ER 10-8 MG/5ML ORAL SUSPENSION EXTENDED RELEASE HYDROCOD POLST-CHLORPHEN POLST I nactive TUSSIONEX PENNKINETIC ER 10-8 MG/5ML ORAL SUSPENSION E XTENDED RELEASE 5 ml twice a day as needed for cough TUSSIONEX LISA KINETIC ER 10-8 MG/5ML ORAL SUSPENSION EXTENDED RELEASE HYDROCOD POLST-CHLOR PHEN POLST Inactive POTASSIUM CHLORIDE ER 20 MEQ ORAL TABLET EXTENDED RELE ASE Take 1 by mouth 4 times daily for 7 days POTASSIUM CHLORID E ER 20 MEQ ORAL TABLET EXTENDED RELEASE POTASSIUM CHLORIDE Inactive TUSSIONEX PENNKINETIC ER 10-8 MG/5ML ORAL SUSPENSION E XTENDED RELEASE 5ml po q12hr PRN Cough TUSSIONEX PENNKINETI C ER 10-8 MG/5ML ORAL SUSPENSION EXTENDED RELEASE HYDROCOD POLST-CHLORPHEN POLST I nactive MUCINEX DM MAXIMUM STRENGTH 60-1200 MG ORAL TABLET EXT ENDED RELEASE 12 HOUR 1 tab po q am MUCINEX DM MAXIMUM S TRENGTH 60-1200 MG ORAL TABLET EXTENDED RELEASE 12 HOUR DEXTROMETHORPHAN-GUAIFENESIN Inactive MUCINEX D 60-600 MG ORAL TABLET EXTENDED RELEASE 12 HOUR 1 t ab po q am MUCINEX D 60-600 MG ORAL TABLET EXTENDED RELEASE 12 HOUR PSEUDOEPHEDRINE-GUAIFENESIN Inactive ELMIRON 100 MG ORAL CAPSULE 2 tablets in the am and 1 tablet at hs ELMIRON 100 MG ORAL CAPSULE PENTOSAN POLYSULFATE SODIUM Inactive PREDNISONE 20 MG ORAL TABLET 1 tab twice daily for 3 d ay, then one daily for three days PREDNISONE 20 MG ORAL TABLET 616578 PREDNIS ONE Inactive PROAIR HFA 108 (90 BASE) MCG/ACT INHALATION AEROSOL SO LUTION 2 puffs four times a day as needed PROAIR HFA 108 (90 B ASE) MCG/ACT INHALATION AEROSOL SOLUTION ALBUTEROL SULFATE Inactive PREDNISONE 20 MG ORAL TABLET two tabs by mouth today, then one tab by mouth days two and three and four PREDNISONE 20 MG ORAL TAB LET 892362 PREDNISONE Inactive TUSSIONEX PENNKINETIC ER 10-8 MG/5ML ORAL SUSPENSION E XTENDED RELEASE 5ml po q12hr PRN Cough TUSSIONEX PENNKINETI C ER 10-8 MG/5ML ORAL SUSPENSION EXTENDED RELEASE HYDROCOD POLST-CHLORPHEN POLST I nactive TUSSIONEX PENNKINETIC ER 10-8 MG/5ML ORAL SUSPENSION E XTENDED RELEASE 5ml po q12hr PRN Cough TUSSIONEX PENNKINETI C ER 10-8 MG/5ML ORAL SUSPENSION EXTENDED RELEASE HYDROCOD POLST-CHLORPHEN POLST I nactive TOPAMAX 100 MG ORAL TABLET Take 1 tablet po bid 04/20 TOPAMAX 100 MG ORAL TABLET 586817 TOPIRAMATE Inactive CYMBALTA 30 MG ORAL CAPSULE DELAYED RELEASE PARTICLES 1 cap by mouth daily for depression CYMBALTA 30 MG ORAL CAPSULE DELAYED RELEASE PARTICLES 624203 DULOXETINE HCL Inactive ZITHROMAX Z-REYNA 250 MG ORAL TABLET 2 today, then 1 daily for 4 d ays ZITHROMAX Z-REYNA 250 MG ORAL TABLET 359467 AZITHROMYCIN Inactive CEFDINIR 300 MG ORAL CAPSULE by mouth twice a day 2010 CEFDINIR 300 MG ORAL CAPSULE 20020704 CEFDINIR Inactive CEFDINIR 300 MG ORAL CAPSULE by mouth twice a day 2010 CEFDINIR 300 MG ORAL CAPSULE 402815 CEFDINIR Inactive CEFDINIR 300 MG ORAL CAPSULE by mouth twice a day 2010 CEFDINIR 300 MG ORAL CAPSULE 245019 CEFDINIR Inactive CEFDINIR 300 MG ORAL CAPSULE by mouth twice a day 2011 CEFDINIR 300 MG ORAL CAPSULE 005443 CEFDINIR Inactive ZITHROMAX 250 MG ORAL TABLET 2 po today, then 1 po q days 2-5 20 03/07/07 ZITHROMAX 250 MG ORAL TABLET 831952 AZITHROMYCIN [facility] CEFDINIR 300 MG ORAL CAPSULE by mouth twice a day 2011 CEFDINIR 300 MG ORAL CAPSULE 292550 CEFDINIR Inactive PREDNISONE 20 MG ORAL TABLET 2 tabs daily for 3 days, 1 tab daily for 3 days, 1/2 tab daily for 2 days PREDNISONE 20 MG ORAL T ABLET 280981 PREDNISONE Inactive AVELOX 400 MG ORAL TABLET 1 tab by mouth daily AVELOX 400 MG ORAL TABLET 080996 MOXIFLOXACIN HCL Inactive AVELOX 400 MG ORAL TABLET 1 tab by mouth daily AVELOX 400 MG ORAL TABLET 522495 MOXIFLOXACIN HCL Inactive PREDNISONE 20 MG ORAL TABLET Take 3 tabs daily for 3 d ays, 2 tabs daily for 3 days, 1 tab daily for 3 days, 1/2 tab daily for 3 days 11/07 PREDNISONE 20 MG ORAL TABLET 665567 PREDNISONE Inactive LEVAQUIN 500 MG ORAL TABLET take one po QD LEVAQUIN 500 MG ORAL TABLET 954893 LEVOFLOXACIN Inactive AZITHROMYCIN 250 MG ORAL TABLET 2 po qd x 1 day, then 1 po q d x 4 days AZITHROMYCIN 250 MG ORAL TABLET 618730 AZITHROMY GIOVANNI Inactive MEDROL 4 MG ORAL TABLET THERAPY PACK 6 tabs on day 1, 5 tabs on day 2, 4 tabs on day 3, 3 tabs on day 4, 2 tabs on day 5, 1 tab on day 6 2013 MEDROL 4 MG ORAL TABLET THERAPY PACK 079926 METHYLPREDNISOLONE [place] [facility] CHERATUSSIN AC 100-10 MG/5ML ORAL SYRUP 5ml po q6hr PRN Cough 20 13/04/14 CHERATUSSIN AC 100-10 MG/5ML ORAL SYRUP 138668 GUAIFENE SIN-CODEINE Inactive TRIAMCINOLONE ACETONIDE 0.1 % EXTERNAL CREAM apply three roger es daily prn rash TRIAMCINOLONE ACETONIDE 0.1 % EXTERNAL CREAM 101 4314 TRIAMCINOLONE ACETONIDE Inactive AZITHROMYCIN 250 MG ORAL TABLET 2 po qd x 1 day, then 1 po q d x 4 days AZITHROMYCIN 250 MG ORAL TABLET 237500 AZITHROMY GIOVANNI Inactive MEDROL 4 MG ORAL TABLET THERAPY PACK 6 pills x 1 day, then 5 pills x 1 day then 4 pills x 1 day, then 3 pills x 1 day, then 2 pills x 1 day, then 1 pill x 1 day, then stop MEDROL 4 MG ORAL TABLET THERAPY PACK 247235 METHYLPREDNISOLONE Inactive AMOXICILLIN 500 MG ORAL CAPSULE 1 tab by mouth 3 times daily x 10 days AMOXICILLIN 500 MG ORAL CAPSULE 844495 AMOXICILL IN Inactive AMOXICILLIN 500 MG ORAL CAPSULE 1 tab by mouth 3 times daily x 10 days AMOXICILLIN 500 MG ORAL CAPSULE 703133 AMOXICILL IN Inactive ZITHROMAX 250 MG ORAL TABLET 2 po today, then 1 po q days 2-5 20 12/08/14 ZITHROMAX 250 MG ORAL TABLET 552599 AZITHROMYCIN [facility] AUGMENTIN 875-125 MG ORAL TABLET 1 po BID x 10 days 20 13/01/20 AUGMENTIN 875-125 MG ORAL TABLET 488091 AMOXICILLIN-POT CLAVULANATE Inactive ZITHROMAX Z-REYNA 250 MG ORAL TABLET 2 today, then 1 daily for 4 d ays ZITHROMAX Z-REYNA 250 MG ORAL TABLET 652115 AZITHROMYCIN Inactive ZITHROMAX 250 MG ORAL TABLET 2 po today, then 1 po q days 2-5 20 14/03/21 ZITHROMAX 250 MG ORAL TABLET 534830 AZITHROMYCIN [place] [facility] ZITHROMAX Z-REYNA 250 MG ORAL TABLET 2 today, then 1 daily for 4 d ays ZITHROMAX Z-REYNA 250 MG ORAL TABLET 516667 AZITHROMYCIN Inactive CEFDINIR 300 MG ORAL CAPSULE 1 po BID x 10 days 06/21 CEFDINIR 300 MG ORAL CAPSULE 272462 CEFDINIR Inactive ZITHROMAX 250 MG ORAL TABLET 2 po today, then 1 po q days 2-5 20 13/08/10 ZITHROMAX 250 MG ORAL TABLET 106851 AZITHROMYCIN [facility] LEVAQUIN 500 MG ORAL TABLET 1 tablet by mouth daily 13/09/24 LEVAQUIN 500 MG ORAL TABLET 166871 LEVOFLOXACIN Inactive SINGULAIR 10 MG ORAL TABLET 1 po qday for allergies 20 14/01/12 SINGULAIR 10 MG ORAL TABLET 142150 MONTELUKAST SODIUM Inactive AMOXICILLIN 500 MG ORAL CAPSULE 2 po BID x 10 days 201 09/29/08 AMOXICILLIN 500 MG ORAL CAPSULE 200240 AMOXICILLIN Inactive PREDNISONE 20 MG ORAL TABLET 2 tabs daily for 3 days, 1 tab daily for 3 days, 1/2 tab daily for 2 days PREDNISONE 20 MG ORAL T ABLET 290579 PREDNISONE Inactive ZITHROMAX Z-REYNA 250 MG ORAL TABLET 2 today, then 1 daily for 4 d ays ZITHROMAX Z-REYNA 250 MG ORAL TABLET 461687 AZITHROMYCIN Inactive PREDNISONE 20 MG ORAL TABLET 2 tabs daily for 3 days, 1 tab daily for 3 days, 1/2 tab daily for 2 days PREDNISONE 20 MG ORAL T ABLET 815087 PREDNISONE Inactive ZITHROMAX 250 MG ORAL TABLET 2 po today, then 1 po q days 2-5 20 14/09/04 ZITHROMAX 250 MG ORAL TABLET 674129 AZITHROMYCIN [place] [facility] AMOXICILLIN 500 MG ORAL CAPSULE 1 cap by mouth three times a day AMOXICILLIN 500 MG ORAL CAPSULE 890370 AMOXICILLIN Inactive TERBINAFINE HCL 250 MG ORAL TABLET 1 qDay for nail fungus 7 TERBINAFINE HCL 250 MG ORAL TABLET 781034 TERBINAFINE HCL Inact nael AUGMENTIN 875-125 MG ORAL TABLET 1 po BID x 10 days 16/03/22 AUGMENTIN 875-125 MG ORAL TABLET 899528 AMOXICILLIN-POT CLAVULANATE Inactive PREDNISONE 20 MG ORAL TABLET 2 po qd x 5 days PREDNISONE 20 MG ORAL TABLET 240680 PREDNISONE Inactive AZITHROMYCIN 250 MG ORAL TABLET 2 po qd x 1 day, then 1 po q d x 4 days AZITHROMYCIN 250 MG ORAL TABLET 539726 AZITHROMY GIOVANNI Inactive PREDNISONE 50 MG ORAL TABLET Take 50 mg dialy for 6 day s 7 PREDNISONE 50 MG ORAL TABLET 138521 PREDNISONE Inactive AUGMENTIN 875-125 MG ORAL TABLET 1 po BID x 10 days 18/04/16 AUGMENTIN 875-125 MG ORAL TABLET 336901 AMOXICILLIN-POT CLAVULANATE Inactive DOXYCYCLINE HYCLATE 100 MG ORAL CAPSULE 1 cap by mouth twice latasha ly DOXYCYCLINE HYCLATE 100 MG ORAL CAPSULE 6924598 DOXYCYCL INE HYCLATE Inactive PREDNISONE 20 MG ORAL TABLET Take 2 tabs day 1 and 2 and 1 t ab days 3 and 4 PREDNISONE 20 MG ORAL TABLET 989838 PREDNISONE Inactive Vital Signs Date Name Value Unit Range Description blood pressure, diastolic, supine 71 mm[Hg] BP srinivasan blood pressure, systolic, supine E&M 107 mm[Hg] BP sys pulse rate E&M 104 /min Heart rate temperature E&M 97.2 [degF] Body temp erature weight E&M 140 [lb_av] Weight Measure d blood pressure, diastolic, repeated by physician 80 BP srinivasan blood pressure, diastolic 80 mm[Hg] BP srinivasan blood pressure, systolic, repeated by physician 120 BP sys blood pressure, systolic 120 mm[Hg] BP sys height E&M 53 [in_us] Bdy height pulse rate E&M 104 /min Heart rate temperature E&M 98.4 [degF] Body temp erature weight E&M 142 [lb_av] Weight Measure d blood pressure, diastolic, repeated by physician 78 BP srinivasan blood pressure, diastolic 78 mm[Hg] BP srinivasan blood pressure, systolic, repeated by physician 128 BP sys blood pressure, systolic 128 mm[Hg] BP sys height E&M 53 [in_us] Bdy height pulse rate E&M 113 /min Heart rate temperature E&M 98.0 [degF] Body temp erature weight E&M 139.31 [lb_av] Weight Measure d blood pressure, diastolic 76 mm[Hg] BP srinivasan blood pressure, systolic 109 mm[Hg] BP sys height E&M 53 [in_us] Bdy height pulse rate E&M 104 /min Heart rate temperature E&M 96.9 [degF] Body temp erature weight E&M 138 [lb_av] Weight Measure d blood pressure, diastolic 75 mm[Hg] BP srinivasan blood pressure, systolic 110 mm[Hg] BP sys height E&M 53 [in_us] Bdy height pulse rate E&M 98 /min Heart rate temperature E&M 97.7 [degF] Body temp erature weight E&M 140.50 [lb_av] Weight Measure d Diagnostic Results Date Name Value Unit Range Description Lab Report: Basic Metabolic Panel - Chem istry calcium, serum 9.4 mg/dL 8.5-10.1 urea nitrogen, blood 10 mg/dL 7-18 creatinine, serum 0.96 mg/dL 0.60-1.30 sodium, serum 139 mmol/L 075-706 7448/10/12 potassium, serum 3.8 mmol/L 3.5-5.2 chloride, serum 102 mmol/L 98-107 carbon dioxide, venous blood 29.4 mmol/L 21.0-32 .0 blood glucose 103 mg/dL 65-95 calcium, serum 8.8 mg/dL 8.5-10.1 urea nitrogen, blood 10 mg/dL 7-18 creatinine, serum 0.97 mg/dL 0.60-1.30 Estimated Glomerular Filtration Rate (calc) 62 (?) mL/min/1.73m2 = OR > 60 mL/min blood glucose 101 mg/dL 65-110 carbon dioxide, venous blood 30.3 mmol/L 21.0-32 .0 chloride, serum 100 mmol/L 98-107 potassium, serum 3.6 mmol/L 3.5-5.2 sodium, serum 139 mmol/L 136-145 Encounters Code Encounter Date Provider Facility CPT-60483 [id number] Vst-Est Level IV 08:41:[address] Carlton Hu MD [facility] CPT-91651 Level 3 Est. Patient 09:46:49 GRANT OFFICER David lion APRN [facility] CPT-23374 [id number] Vst-Est Level III 11:12:16 CDT Yanet Bess DO [facility] CPT-69404 Level 3 Est. Patient 11:34:49 GRANT OFFICER Perez Mora MD [facility] CPT-83319 Level 4 Est. Patient 09:51:32 GRANT OFFICER Carlton rich MD [facility] CPT-43762 Level 3 Est. Patient 10:26:00 GRANT OFFICER Elise Are ll [facility] CPT-55141 Level 3 Est. Patient 13:35:41 GRANT OFFICER Carlton rich MD [facility] CPT-71570 Level 3 Est. Patient 10:03:52 GRANT OFFICER Carlton rich MD [facility] CPT-48955 Level 3 Est. Patient 12:17:50 CDT Hugo Restrepo MD [facility] CPT-40139 Level 3 Est. Patient 13:42:38 CDT Elise Are ll [facility] CPT-77766 Level 3 Est. Patient 13:23:51 CDT Diya cobian [facility] CPT-13028 Level 3 Est. Patient 14:22:19 GRANT OFFICER Diya cobian [facility] CPT-60175 Level 3 Est. Patient 10:11:46 CDT Carlton rich MD [facility] CPT-20898 Level 3 Est. Patient 17:29:43 CDT Elise Are ll [facility] CPT-53369 Level 3 Est. Patient 11:58:06 CDT Elise Are [facility] CPT-69518 Level 4 Est. Patient 14:36:51 CDT Carlton rich MD [facility] CPT-98493 Level 3 Est. Patient 18:16:00 GRANT OFFICER Blaine HERNANDEZ [facility] CPT-57576 Level 3 Est. Patient 09:45:49 GRANT OFFICER Carlton rich MD [facility] CPT-41731 Level 3 Est. Patient 13:19:20 CDT Carlton rich MD [facility] CPT-69765 Level 3 Est. Patient 13:06:43 CDT Ridge tam DO [facility] CPT-66079 Level 3 Est. Patient 10:03:07 CDT Perez Mora MD [facility] CPT-25380 Level 3 Est. Patient 19:50:35 GRANT OFFICER Carlton rich MD [facility]-53393 Level 4 Est. Patient 18:05:01 GRANT OFFICER Carlton rich MD [facility]-52223 Level 3 Est. Patient 10:45:55 GRANT OFFICER Hugo Restrepo MD [facility]-85672 Level 3 Est. Patient 14:12:49 CDT Griffin HERNANDEZ [facility]-75098 Level 3 Est. Patient 17:37:24 CDT Carlton rich MD [facility]-10925 Level 3 Est. Patient 16:51:54 CDT Carlton rich MD [facility]-91548 Level 3 Est. Patient 12:18:11 CDT Hugo Restrepo MD [facility] CPT-45586 Level 3 Est. Patient 11:30:25 CDT Marcy crisostomo MD PhD [facility]-71949 Level 3 Est. Patient 12:00:47 GRANT OFFICER Carltno rich MD [facility]-95588 Level 3 Est. Patient 16:31:06 GRANT OFFICER Carlton rich MD [facility] CPT-43194 Level 3 Est. Patient 16:23:24 GRANT OFFICER Ridge tam DO [facility] CPT-61298 Level 3 Est. Patient 12:34:12 CDT Carlton rich MD [facility]-48116 Level 2 Est. Patient 15:43:33 CDT Robi armstrong MD [facility]-85199 Level 4 Est. Patient 14:04:44 CDT Carlton rich MD [facility] CPT-14918 Level 3 Est. Patient 05:47:59 CDT Ridge tam DO [facility] CPT-60619 Level 3 Est. Patient 13:12:53 GRANT OFFICER Carlton rich MD [facility] CPT-85547 Level 3 Est. Patient 14:26:53 CDT Hugo Restrepo MD [facility] Procedures Code Procedure Name Date Entry Date Standard Desc ription CPT-000 Give Appropriate Flu Vaccine 14:14:31 CDT 2 CPT-J1040 Depo Medrol 80 mg (Methyl Prednisolone A cetate) 10:42:44 CDT CPT-J1100 Decadron 8mg (Dexamethasone) 10:42:44 CDT 2 CPT-J0696 Rocephin 1gm Inj Solr 14:32:13 CDT CPT-J1020 Depo Medrol 60 mg (Methyl Prednisolone A cetate) 14:32:13 CDT CPT-J1100 Decadron 6mg (Dexamethasone) 14:32:13 CDT 2 CPT-99500 Hip bilat min 2V w AP pelvis 13:16:20 CDT 2 CPT-80829 Pelvis only 13:07:33 CDT CPT-05860 Spec Collection and Handling Fee 11:25:12 C DT CPT-32753 Fluzone Quadrivalent Intramuscular Suspe nsion 0.5 ML 14:31:55 CDT CPT-40276 Abx/Therapy Injection 13:28:47 GRANT OFFICER CPT-J2930 Solu Medrol 125 mg (Methyl Prednisolone Sodium Succinate) 12:00:47 GRANT OFFICER CPT-35273 Venipuncture Draw Fee 11:33:31 CDT CPT-10026 EKG Trac and Interp 11:21:09 CDT CPT-92408 Chest 2V Frontal and Lat 11:21:09 CDT 12/15 CPT-41562 Venipuncture Draw Fee 08:02:34 CDT CPT-43867 Chest 2V Frontal and Lat 05:47:59 CDT 06/05
--- OUTSIDE RECORDS SUMMARY | 2019-10-08 08:02 | XMS REPORT | Clinical Summary ---
Author Author Caitlin, Juliana Martinez Organization [facility] Address Unknown Phone Unavailable Allergies, Adverse Reactions, [...] climacteric states Headache, chronic 784.0 Active Carlton Hu MD Headache Dermatitis, atopic 691.8 Active Carlton [...] unspecified Obesity Class II (BMI 35-39.9) Active Carlton Hu MD Obesity, unspecified Hypertension, systolic 401.9 Active Carlton bustamante MD Unspecified essential hypertension BRONCHITIS ICD-490 Inactive Hugo Restrepo MD 201 04/09/17 MAXILLARY SINUSITIS ICD-473.0 Inactive Marcy De La Rosa MD PhD BRONCHITIS, ACUTE WITH MILD BRONCHOSPASM ICD-466.0 Inactive Marcy De La Rosa MD PhD DYSPNEA ICD-786.05 Inactive Marcy De La Rosa MD P hD HEALTH SCREENING ICD-V70.0 Inactive Marcy ya MD [...] by mouth daily for depression DULOXETINE HCL 91881894852 No Longer Active Carlton Hu MD Active CYMBALTA 60 MG ORAL CAPSULE DELAYED RELEASE PARTICLES 1 cap by mouth daily for mood and pain DULOXETINE HCL 70756659181 Active Carlton Hu MD Active TUSSIONEX PENNKINETIC ER 10-8 MG/5ML ORAL SUSPENSION E XTENDED RELEASE 5ml po q12hr PRN Cough HYDROCOD POLST-CHLORPHEN POLST 69928316179 Active 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 [employer] Active PREDNISONE 20 MG ORAL TABLET Take 2 tabs day 1 and 2 and 1 t ab days 3 and 4 PREDNISONE 58600297544 No Longer Active 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 [employer]ENT Active DOXYCYCLINE HYCLATE 100 MG ORAL CAPSULE 1 cap by mouth twice latasha ly DOXYCYCLINE HYCLATE 25963364694 No Longer Active David Lopes [employer] SAL[employer] AGENT Active TOPAMAX 100 MG ORAL TABLET Take 1 tablet po bid TOPIRAMATE 77813532445 No Longer Active 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 [employer] SAL[employer] AGENT Active TUSSIONEX PENNKINETIC ER 10-8 MG/5ML ORAL SUSPENSION E XTENDED RELEASE 5ml po q12hr PRN Cough HYDROCOD POLST-CHLORPHEN POLST 5 2618792787 No Longer Active 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 [employer]ENT Active AUGMENTIN 875-125 MG ORAL TABLET 1 po BID x 10 days 18/04/16 AMOXICILLIN-POT CLAVULANATE 91312356567 No Longer Active David Lopes [employer] SAL[employer] AGENT Active PREDNISONE 50 MG ORAL TABLET Take 50 mg dialy for 6 day s 7 PREDNISONE 19347734074 No Longer Active 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 [employer]ENT Active TUSSIONEX PENNKINETIC ER 10-8 MG/5ML ORAL SUSPENSION E XTENDED RELEASE 5ml po q12hr PRN Cough HYDROCOD POLST-CHLORPHEN POLST 5 1812198104 No Longer Active Cherelle Torres RN Active PREDNISONE 20 MG ORAL TABLET two tabs by mouth today, then one tab by mouth days two and three and four PREDNISONE 22712205893 No Lo nger Active Cherelle Torres RN Active AZITHROMYCIN 250 MG ORAL TABLET 2 po qd x 1 day, then 1 po q d x 4 days AZITHROMYCIN 08011975353 No Longer Active Ridge Bess DO Active PREDNISONE 20 MG ORAL TABLET 2 po qd x 5 days P REDNISONE 90058179132 No Longer Active Perez Mora MD Active PROAIR HFA 108 (90 BASE) MCG/ACT INHALATION AEROSOL SO LUTION 2 puffs four times a day as needed ALBUTEROL SULFATE 20266341568 No Long er Active Becky AGUILARA Active ASPIRIN 81 MG ORAL TABLET 1 po qd ASPIRIN 70497759248 Active Carlton Hu MD Active PREDNISONE 20 MG ORAL TABLET 1 tab twice daily for 3 d ay, then one daily for three days PREDNISONE 80435974241 No Longer Active Carlton Hu MD Active AUGMENTIN 875-125 MG ORAL TABLET 1 po BID x 10 days 16/03/22 AMOXICILLIN-POT CLAVULANATE 49539608605 No Longer Active Elise Garcia APRN Active TERBINAFINE HCL 250 MG ORAL TABLET 1 qDay for nail fungus 7 TERBINAFINE HCL 92505534200 No Longer Active Carlton Hu MD A ctive AMOXICILLIN 500 MG ORAL CAPSULE 1 cap by mouth three times a day AMOXICILLIN 90739925469 No Longer Active Carlton Hu MD Active ELMIRON 100 MG ORAL CAPSULE 2 tablets in the am and 1 tablet at hs PENTOSAN POLYSULFATE SODIUM 75171366543 No Longer Active Robert jade Hu MD Active MUCINEX D 60-600 MG ORAL TABLET EXTENDED RELEASE 12 HOUR 1 t ab po q am PSEUDOEPHEDRINE-GUAIFENESIN 55462812798 No Longer Act nael Carlton Hu MD Active MUCINEX DM MAXIMUM STRENGTH 60-1200 MG ORAL TABLET EXT ENDED RELEASE 12 HOUR 1 tab po q am DEXTROMETHORPHAN-GUAIFENESIN 97240999958 No Longer Active Carlton Hu MD Active TUSSIONEX PENNKINETIC ER 10-8 MG/5ML ORAL SUSPENSION E XTENDED RELEASE 5ml po q12hr PRN Cough HYDROCOD POLST-CHLORPHEN POLST 5 7212529352 No Longer Active Carlton Hu MD Active POTASSIUM CHLORIDE ER 20 MEQ ORAL TABLET EXTENDED RELE ASE Take 1 by mouth 4 times daily for 7 days POTASSIUM CHLORIDE 69738377661 No Longer Active Carlton Hu MD Active ZITHROMAX 250 MG ORAL TABLET 2 po today, then 1 po q days 2-5 20 14/09/04 AZITHROMYCIN 20990645488 No Longer Active Elise Garcia APRN Active TUSSIONEX PENNKINETIC ER 10-8 MG/5ML ORAL SUSPENSION E XTENDED RELEASE 5 ml twice a day as needed for cough HYDROCOD POLST-CHLORPH EN POLST 24407173277 No Longer Active Elise Garcia APRN Active MONTELUKAST SODIUM 10 MG ORAL TABLET 1 po daily for Allergy MONTELUKAST SODIUM 71086211564 Active Carlton Hu MD Ac tive TUSSIONEX PENNKINETIC ER 10-8 MG/5ML ORAL SUSPENSION E XTENDED RELEASE 5ml po q12hr PRN Cough HYDROCOD POLST-CHLORPHEN POLST 5 7332054246 No Longer Active Hugo Restrepo MD Active GABAPENTIN 100 MG ORAL CAPSULE 1 po BID for fibromyalgia GABAPENTIN 10916491943 Active Carlton Hu MD Active LYRICA 100 MG ORAL CAPSULE Take 1 tab po BID for fibromyalgia 20 11/08/21 PREGABALIN 87631263346 No Longer Active Elise Garcia APRN A ctive PREDNISONE 20 MG ORAL TABLET 2 tabs daily for 3 days, 1 tab daily for 3 days, 1/2 tab daily for 2 days PREDNISONE 87378019046 No Longer Active Astridina Cesarl [employer]ENT Active TUSSIONEX PENNKINETIC ER 10-8 MG/5ML ORAL SUSPENSION E XTENDED RELEASE 5 mL PO q 12 hrs PRN cough HYDROCOD POLST-CHLORPHEN POLST 994539 81004 No Longer Active Jillina Frazell [employer]ENT Active FLUTICASONE PROPIONATE 50 MCG/ACT NASAL SUSPENSION 2 s prays each nostril daily until bottle is empty FLUTICASONE PROPIONATE 782574295 99 No Longer Active Jillina Frazell [employer] SAL[employer]ENT Active ASMANEX 60 METERED DOSES 220 MCG/INH INHALATION AEROSO L POWDER BREATH ACTIVATED 1 puff bid with rinse after MOMETASONE FUROATE 4054587 4102 No Longer Active Jillina Frazell [employer]ENT Active ZITHROMAX Z-REYNA 250 MG ORAL TABLET 2 today, then 1 daily for 4 d ays AZITHROMYCIN 82274392448 No Longer Active Elise Garcia APRN Active TUSSIONEX PENNKINETIC ER 10-8 MG/5ML ORAL SUSPENSION E XTENDED RELEASE 5ml po q12hr PRN Cough HYDROCOD POLST-CHLORPHEN POLST 5 6783426782 No Longer Active Elise Garcia APRN Active PREDNISONE 20 MG ORAL TABLET 2 tabs daily for 3 days, 1 tab daily for 3 days, 1/2 tab daily for 2 days PREDNISONE 54694615010 No Longer Active Diya De Guzman APRN Active AMOXICILLIN 500 MG ORAL CAPSULE 2 po BID x 10 days 201 09/29/08 AMOXICILLIN 85696517053 No Longer Active Jiriley De Guzman APRN Act nael SINGULAIR 10 MG ORAL TABLET 1 po qday for allergies 20 14/01/12 MONTELUKAST SODIUM 33107739076 No Longer Active Carlton Hu MD Active LEVAQUIN 500 MG ORAL TABLET 1 tablet by mouth daily 20 13/09/24 LEVOFLOXACIN 47408870100 No Longer Active Carlton Hu MD Acti ve FLUTICASONE PROPIONATE 50 MCG/ACT NASAL SUSPENSION 2 s prays each nostril daily for 2 weeks, then 1 spray each nostril daily. FLUTICASONE PROPIONATE 50943063026 Active Carlton Hu MD Active ZITHROMAX 250 MG ORAL TABLET 2 po today, then 1 po q days 2-5 20 13/08/10 AZITHROMYCIN 15360096083 No Longer Active Elise Garcia APRN Active XANAX 0.5 MG ORAL TABLET one tablet by mouth daily prn anxiety 2015 ALPRAZOLAM 71370832435 Active ALFREDO Holly Active CEFDINIR 300 MG ORAL CAPSULE 1 po BID x 10 days CEFDINIR 90688956730 No Longer Active Carlton Hu MD Active ZOCOR 40 MG ORAL TABLET 1 tab by mouth daily SI MVASTATIN 39941663706 No Longer Active Carlton Hu MD Active CYCLOBENZAPRINE HCL 10 MG ORAL TABLET 1 tablet by mouth BID prn had pain CYCLOBENZAPRINE HCL 97266997287 No Longer Active Jayden Hu MD Active LEVOFLOXACIN 500 MG ORAL TABLET 1 tab PO daily x 10 days LEVOFLOXACIN 20556515535 No Longer Active Carlton Hu MD Acti ve PREDNISONE 20 MG ORAL TABLET 3 tab PO qd x 2d, 2 tab P O qd x 2d, 1 tab PO qd x 2d, 1/2 tab PO qd x 2d PREDNISONE 79460715663 No Lo nger Active Carlton Hu MD Active FLUTICASONE PROPIONATE 50 MCG/ACT NASAL SUSPENSION 1 t o 2 sprays each nostril daily FLUTICASONE PROPIONATE 32597389031 No Longer Ac tive Blaine HERNANDEZ Active CHERATUSSIN AC 100-10 MG/5ML ORAL SYRUP 1 tsp by mouth every 4 hours as needed for cough GUAIFENESIN-CODEINE 14771266045 No Longe r Active Blaine HERNANDEZ Active PROMETHAZINE-CODEINE 6.25-10 MG/5ML ORAL SYRUP 1 tsp b y mouth every 6 hours if needed for cough PROMETHAZINE-CODEINE 42943269860 No Longer Active Blaine HERNANDEZ Active CHERATUSSIN AC 100-10 MG/5ML ORAL SYRUP 1 tsp by mouth every 4 hours as needed for cough GUAIFENESIN-CODEINE 14044725520 No Longe r Active Blaine HERNANDEZ Active ZITHROMAX Z-REYNA 250 MG ORAL TABLET 2 today, then 1 daily for 4 d ays AZITHROMYCIN 92972364648 No Longer Active Columba Raida Act nael ZITHROMAX 250 MG ORAL TABLET 2 po today, then 1 po q days 2-5 20 14/03/21 AZITHROMYCIN 60205198302 No Longer Active Carlton Hu MD Active ZITHROMAX Z-REYNA 250 MG ORAL TABLET 2 today, then 1 daily for 4 d ays AZITHROMYCIN 60856792824 No Longer Active Columba Raida Act nael AUGMENTIN 875-125 MG ORAL TABLET 1 po BID x 10 days 13/01/20 AMOXICILLIN-POT CLAVULANATE 81817875149 No Longer Active Diya De Guzman APRN Active ZITHROMAX 250 MG ORAL TABLET 2 po today, then 1 po q days 2-5 12/08/14 AZITHROMYCIN 21781749660 No Longer Active Carlton Hu MD Active TRAMADOL HCL 50 MG ORAL TABLET 1 po tid with ES Tylenol TRAMADOL HCL 52761983372 Active ALFREDO Holly Active PREMARIN 0.625 MG ORAL TABLET TAKE 1 TAB BY MOUTH DAILY ESTROGENS CONJUGATED 34276493340 No Longer Active Ridge Bess DO A ctive CYMBALTA 30 MG ORAL CAPSULE DELAYED RELEASE PARTICLES 1 cap by mouth daily DULOXETINE HCL 01866473236 No Longer Active Ridge tam DO Active AMOXICILLIN 500 MG ORAL CAPSULE 1 tab by mouth 3 times daily x 10 days AMOXICILLIN 37518499325 No Longer Active Carlton bustamante MD Active AMOXICILLIN 500 MG ORAL CAPSULE 1 tab by mouth 3 times daily x 10 days AMOXICILLIN 59264455353 No Longer Active Carlton bustamante MD Active PROMETHAZINE-CODEINE 6.25-10 MG/5ML ORAL SYRUP 1 tsp b y mouth every 8 hours prn cough PROMETHAZINE-CODEINE 26004968545 No Longer Acti ve Carlton Hu MD Active MEDROL 4 MG ORAL TABLET THERAPY PACK 6 pills x 1 day, then 5 pills x 1 day then 4 pills x 1 day, then 3 pills x 1 day, then 2 pills x 1 day, then 1 pill x 1 day, then stop METHYLPREDNISOLONE 26400663467 No Long er Active Perez Mora MD Active AZITHROMYCIN 250 MG ORAL TABLET 2 po qd x 1 day, then 1 po q d x 4 days AZITHROMYCIN 64633229265 No Longer Active Perez Ambriz MD Active SYMBICORT 160-4.5 MCG/ACT INHALATION AEROSOL 2 puffs bid wit h rinse after BUDESONIDE-FORMOTEROL FUMARATE 28666301992 N o Longer Active Perez Mora MD Active LYRICA 75 MG ORAL CAPSULE TAKE 1 CAPSULE BY MOUTH TWICE DAILY PREGABALIN 76285229634 No Longer Active Carlton Hu MD Acti ve TOPAMAX 25 MG ORAL TABLET 1 qHS x 1 week, then 1 BID x 1 week, then 1 qAM and 2 qHS x 1 week, then 2 BID (migraine prevention) T OPIRAMATE 18025354892 No Longer Active Jerica FUENTES Active TOPAMAX 50 MG ORAL TABLET take 1 tab po BID for migraines. 07/02 TOPIRAMATE 53257610683 No Longer Active Jerica FUENTES Active TRIAMCINOLONE ACETONIDE 0.1 % EXTERNAL CREAM apply three roegr es daily prn rash TRIAMCINOLONE ACETONIDE 95550897259 No Longer Active Carlton Hu MD Active PAXIL 40 MG ORAL TABLET take 1 tab po qday for depression 0 PAROXETINE HCL 38695532967 Active Carlton Hu MD Active CHERATUSSIN AC 100-10 MG/5ML ORAL SYRUP 5ml po q6hr PRN Cough 20 13/04/14 GUAIFENESIN-CODEINE 87024967678 No Longer Active Carlton Hu MD Active MEDROL 4 MG ORAL TABLET THERAPY PACK 6 tabs on day 1, 5 tabs on day 2, 4 tabs on day 3, 3 tabs on day 4, 2 tabs on day 5, 1 tab on day 6 2013 METHYLPREDNISOLONE 92279372821 No Longer Active Perez Mora MD Active AZITHROMYCIN 250 MG ORAL TABLET 2 po qd x 1 day, then 1 po q d x 4 days AZITHROMYCIN 48654104813 No Longer Active Perez Ambriz MD Active PROPRANOLOL HCL 60 MG ORAL TABLET 1 PO Q D PROPRANOLOL HCL 58921634754 No Longer Active Perez Mora MD Activ e CHERATUSSIN AC 100-10 MG/5ML ORAL SYRUP take one tsp po Q 6h ours prn cough GUAIFENESIN-CODEINE 93204178503 No Longer Active Zia Mora MD Active AUGMENTIN 875-125 MG ORAL TABLET 1 tab by mouth twice daily with food AMOXICILLIN-POT CLAVULANATE 25257507942 No Longer Act nael Mora MD Active CHERATUSSIN AC 100-10 MG/5ML ORAL SYRUP 1 tsp by mouth every 4 hours as needed for cough GUAIFENESIN-CODEINE 04099784297 No Longe r Active Hugo Restrepo MD Active ACETAMINOPHEN-CODEINE #3 300-30 MG ORAL TABLET 1 PO Q 4-6 HRS IA N PAIN ACETAMINOPHEN-CODEINE 28530526280 No Longer Active Hugo Restrepo MD Active LEVAQUIN 500 MG ORAL TABLET take one po QD LEVO FLOXACIN 51972368134 No Longer Active Griffin HERNANDEZ Active PREDNISONE 20 MG ORAL TABLET Take 3 tabs daily for 3 d ays, 2 tabs daily for 3 days, 1 tab daily for 3 days, 1/2 tab daily for 3 days 11/07 PREDNISONE 25162320675 No Longer Active Carlton Hu MD Acti ve AVELOX 400 MG ORAL TABLET 1 tab by mouth daily MOXIFLOXACIN HCL 50104033518 No Longer Active Carlton Hu MD Active CHERATUSSIN AC 100-10 MG/5ML ORAL SYRUP 1 tsp by mouth every 4 hours as needed for cough GUAIFENESIN-CODEINE 23625925145 No Longe r Active Hugo Restrepo MD Active AVELOX 400 MG ORAL TABLET 1 tab by mouth daily MOXIFLOXACIN HCL 32083613215 No Longer Active Marcy De La Rosa MD PhD Active TERBINAFINE HCL 250 MG ORAL TABLET 1 qDay T ERBINAFINE HCL 96836136843 No Longer Active Marcy De La Rosa MD PhD Active CHERATUSSIN AC 100-10 MG/5ML ORAL SYRUP 1 tsp by mouth every 4 hours as needed for cough GUAIFENESIN-CODEINE 87160668030 No Longe r Active Marcy De La Rosa MD PhD Active AVELOX 400 MG ORAL TABLET 1 tab by mouth daily MOXIFLOXACIN HCL 52239892897 No Longer Active Marcy De La Rosa MD PhD Active HYDROCODONE-ACETAMINOPHEN 5-325 MG ORAL TABLET 1 po q 6hr PRN co ugh HYDROCODONE-ACETAMINOPHEN 14062633305 No Longer Active Marcy De La Rosa MD PhD Active PREDNISONE 20 MG ORAL TABLET 2 tabs daily for 3 days, 1 tab daily for 3 days, 1/2 tab daily for 2 days PREDNISONE 21104244612 No Longer Active Carlton Hu MD Active CEFDINIR 300 MG ORAL CAPSULE by mouth twice a day 2011 CEFDINIR 83651887596 No Longer Active Carlton Hu MD Acti ve HYDROCHLOROTHIAZIDE 25 MG ORAL TABLET 1 TAB PO DAILY HYDROCHLOROTHIAZIDE 61913909199 Active Carlton Hu MD A ctive ACETAMINOPHEN-CODEINE #3 300-30 MG ORAL TABLET 1 tablet po q 4-6 hrs prn pain ACETAMINOPHEN-CODEINE 49874195342 No Longer Active Ridge Bess DO Active ZITHROMAX 250 MG ORAL TABLET 2 po today, then 1 po q days 2-5 20 03/07/07 AZITHROMYCIN 83005170365 No Longer Active Carlton Hu MD Active CHERATUSSIN AC 100-10 MG/5ML ORAL SYRUP take 1 tsp po q4-6 h ours prn cough GUAIFENESIN-CODEINE 83026913077 No Longer Active Jayden Hu MD Active ACETAMINOPHEN-CODEINE #3 300-30 MG ORAL TABLET 1 PO Q 4-6 HR PRN PAIN ACETAMINOPHEN-CODEINE 07149626727 No Longer Active Arnol Hu MD Active LORTAB 7.5-500 MG/15ML ORAL ELIXIR 7.5 ml po q 4 hour prn cough HYDROCODONE-ACETAMINOPHEN 78064597891 No Longer Active Carlton Hu MD Active PREDNISONE 20 MG ORAL TABLET 1 po bid 3 days, then 1 po q day 3 days PREDNISONE 28813416737 No Longer Active Carlton Hu MD Active CEFDINIR 300 MG ORAL CAPSULE by mouth twice a day 2011 CEFDINIR 20710430179 No Longer Active Carlton Hu MD Acti ve CEFDINIR 300 MG ORAL CAPSULE by mouth twice a day 2010 CEFDINIR 21682200352 No Longer Active Carlton Hu MD Acti ve CEFDINIR 300 MG ORAL CAPSULE by mouth twice a day 2010 CEFDINIR 85403572631 No Longer Active Carlton Hu MD Acti ve TESSALON PERLES 100 MG ORAL CAPSULE 1 tablet by mouth 3 times daily as needed for cough BENZONATATE 81851950619 No Longer Active Carlton Hu MD Active CEFDINIR 300 MG ORAL CAPSULE by mouth twice a day 2010 CEFDINIR 88511353403 No Longer Active Carlton Hu MD Acti ve ZITHROMAX Z-REYNA 250 MG ORAL TABLET 2 today, then 1 daily for 4 d ays AZITHROMYCIN 24478318414 No Longer Active Hugo Restrepo MD Active TESSALON PERLES 100 MG ORAL CAPSULE 1 tablet by mouth 3 times daily as needed for cough TESSALON PERLES 100 MG ORAL CAPSULE 88407 7 BENZONATATE Inactive PREDNISONE 20 MG ORAL TABLET 1 po bid 3 days, then 1 po q day 3 days PREDNISONE 20 MG ORAL TABLET 040403 PREDNISONE Treichlers ctive LORTAB 7.5-500 MG/15ML ORAL ELIXIR 7.5 [...] cough CHERATUSSIN AC 100-10 MG/5ML ORAL SYRUP 662728 GUAIFENESIN-CODEINE Inactive ACETAMINOPHEN-CODEINE #3 300-30 MG ORAL TABLET 1 tablet po q 4-6 hrs prn pain ACETAMINOPHEN-CODEINE #3 300-30 MG ORAL TABLET ACETAMINOPHEN-CODEINE Inactive HYDROCODONE-ACETAMINOPHEN 5-325 MG ORAL TABLET 1 po q 6hr PRN co ugh HYDROCODONE-ACETAMINOPHEN 5-325 MG ORAL TABLET 308400 HYDROCODONE-ACETAMINOPHEN Inactive AVELOX 400 MG ORAL TABLET 1 tab by mouth daily AVELOX 400 MG ORAL TABLET 836750 MOXIFLOXACIN HCL Inactive CHERATUSSIN AC 100-10 MG/5ML ORAL SYRUP 1 tsp by mouth every 4 hours as needed for cough CHERATUSSIN AC 100-10 MG/5ML ORAL SYRUP 9 43131 GUAIFENESIN-CODEINE Inactive TERBINAFINE HCL 250 MG ORAL TABLET 1 qDay 07/08 TERBINAFINE HCL 250 MG ORAL TABLET 207409 TERBINAFINE HCL Inactive CHERATUSSIN AC 100-10 MG/5ML ORAL SYRUP 1 tsp by mouth every 4 hours as needed for cough CHERATUSSIN AC 100-10 MG/5ML ORAL SYRUP 9 75152 GUAIFENESIN-CODEINE Inactive ACETAMINOPHEN-CODEINE #3 300-30 MG ORAL TABLET 1 PO Q 4-6 HRS IA N PAIN ACETAMINOPHEN-CODEINE #3 300-30 MG ORAL TABLET ACETAMINOPHEN-CODEINE Inactive CHERATUSSIN AC 100-10 MG/5ML ORAL SYRUP 1 tsp by mouth every 4 hours as needed for cough CHERATUSSIN AC 100-10 MG/5ML ORAL SYRUP 9 01524 GUAIFENESIN-CODEINE Inactive AUGMENTIN 875-125 MG ORAL TABLET 1 tab by mouth twice daily with food AUGMENTIN 875-125 MG ORAL TABLET 240279 AMOXICIL MADELINE-POT CLAVULANATE Inactive CHERATUSSIN AC 100-10 MG/5ML ORAL SYRUP take one tsp po Q 6h ours prn cough CHERATUSSIN AC 100-10 MG/5ML ORAL SYRUP 789112 GUAIFENESIN-CODEINE Inactive PROPRANOLOL HCL 60 MG ORAL TABLET 1 PO Q D PROPRANOLOL HCL 60 MG ORAL TABLET 886500 PROPRANOLOL HCL Inactive TOPAMAX 50 MG ORAL TABLET take 1 tab po BID for migraines. 07/02 TOPAMAX 50 MG ORAL TABLET 246483 TOPIRAMATE Inacti ve TOPAMAX 25 MG ORAL TABLET 1 qHS x 1 week, then 1 BID x 1 week, then 1 qAM and 2 qHS x 1 week, then 2 BID (migraine prevention) TOPAMAX 25 MG ORAL TABLET 429664 TOPIRAMATE Inactive LYRICA 75 MG ORAL CAPSULE TAKE 1 CAPSULE BY MOUTH TWICE DAILY LYRICA 75 MG ORAL CAPSULE PREGABALIN Inactive SYMBICORT 160-4.5 MCG/ACT INHALATION AEROSOL 2 puffs bid wit h rinse after SYMBICORT 160-4.5 MCG/ACT INHALATION AEROSOL BUDESONIDE- FORMOTEROL FUMARATE Inactive PROMETHAZINE-CODEINE 6.25-10 MG/5ML ORAL SYRUP 1 tsp b y mouth every 8 hours prn cough PROMETHAZINE-CODEINE 6.25-10 MG/ 5ML ORAL SYRUP 954719 PROMETHAZINE-CODEINE Inactive CYMBALTA 30 MG ORAL CAPSULE DELAYED RELEASE PARTICLES 1 cap by mouth daily CYMBALTA 30 MG ORAL CAPSULE DELAYED RELE ASE PARTICLES 448884 DULOXETINE HCL Inactive PREMARIN 0.625 MG ORAL TABLET TAKE 1 TAB BY MOUTH DAILY PREMARIN 0.625 MG ORAL TABLET ESTROGENS CONJUGATED Inactive CHERATUSSIN AC 100-10 MG/5ML ORAL SYRUP 1 tsp by mouth every 4 hours as needed for cough CHERATUSSIN AC 100-10 MG/5ML ORAL SYRUP 9 44747 GUAIFENESIN-CODEINE Inactive PROMETHAZINE-CODEINE 6.25-10 MG/5ML ORAL SYRUP 1 tsp b y mouth every 6 hours if needed for cough PROMETHAZINE-CODEINE 6.25-10 MG/5ML ORAL SYRUP 511129 PROMETHAZINE-CODEINE Inactive CHERATUSSIN AC 100-10 MG/5ML ORAL SYRUP 1 tsp by mouth every 4 hours as needed for cough CHERATUSSIN AC 100-10 MG/5ML ORAL SYRUP 9 47443 GUAIFENESIN-CODEINE Inactive FLUTICASONE PROPIONATE 50 MCG/ACT NASAL SUSPENSION 1 t o 2 sprays each nostril daily FLUTICASONE PROPIONATE 50 MCG/AC T NASAL SUSPENSION 4691599 FLUTICASONE PROPIONATE Inactive PREDNISONE 20 MG ORAL TABLET 3 tab PO qd x 2d, 2 tab P O qd x 2d, 1 tab PO qd x 2d, 1/2 tab PO qd x 2d PREDNISONE 20 MG ORAL TAB LET 075263 PREDNISONE Inactive LEVOFLOXACIN 500 MG ORAL TABLET 1 tab PO daily x 10 days LEVOFLOXACIN 500 MG ORAL TABLET 328592 LEVOFLOXACIN Inactive CYCLOBENZAPRINE HCL 10 MG ORAL TABLET 1 tablet by mouth BID prn had pain CYCLOBENZAPRINE HCL 10 MG ORAL TABLET 883564 CYCLOBENZAPRINE HCL Inactive ZOCOR 40 MG ORAL TABLET 1 tab by mouth daily 4 ZOCOR 40 MG ORAL TABLET 829083 SIMVASTATIN Inactive TUSSIONEX PENNKINETIC ER 10-8 MG/5ML [...] FLUTICASONE PROPIO EFE 50 MCG/ACT NASAL SUSPENSION 1254776 FLUTICASONE PROPIONATE Inactive TUSSIONEX PENNKINETIC ER 10-8 [...] three days PREDNISONE 20 MG ORAL TABLET 678913 PREDNIS ONE Inactive PROAIR HFA 108 (90 BASE) MCG/ACT INHALATION AEROSOL SO LUTION 2 puffs four times a day as needed PROAIR HFA 108 (90 B ASE) MCG/ACT INHALATION AEROSOL SOLUTION ALBUTEROL SULFATE Inactive PREDNISONE 20 MG ORAL TABLET two tabs by mouth today, then one tab by mouth days two and three and four PREDNISONE 20 MG ORAL TAB LET 155371 PREDNISONE Inactive TUSSIONEX PENNKINETIC ER 10-8 MG/5ML [...] bid 04/20 TOPAMAX 100 MG ORAL TABLET 283762 TOPIRAMATE Inactive CYMBALTA 30 MG ORAL CAPSULE DELAYED RELEASE PARTICLES 1 cap by mouth daily for depression CYMBALTA 30 MG ORAL CAPSULE DELAYED RELEASE PARTICLES 464199 DULOXETINE HCL Inactive ZITHROMAX Z-REYNA 250 MG ORAL TABLET 2 today, then 1 daily for 4 d ays ZITHROMAX Z-REYNA 250 MG ORAL TABLET 521464 AZITHROMYCIN Inactive CEFDINIR 300 MG ORAL CAPSULE by mouth twice a day 2010 CEFDINIR 300 MG ORAL CAPSULE 532511 CEFDINIR Inactive CEFDINIR 300 MG ORAL CAPSULE by mouth twice a day 2010 CEFDINIR 300 MG ORAL CAPSULE 152392 CEFDINIR Inactive CEFDINIR 300 MG ORAL CAPSULE by mouth twice a day 2010 CEFDINIR 300 MG ORAL CAPSULE 131696 CEFDINIR Inactive CEFDINIR 300 MG ORAL CAPSULE by mouth twice a day 2011 CEFDINIR 300 MG ORAL CAPSULE 835406 CEFDINIR Inactive ZITHROMAX 250 MG ORAL TABLET 2 po today, then 1 po q days 2-5 20 03/07/07 ZITHROMAX 250 MG ORAL TABLET 479999 AZITHROMYCIN Greer ctive CEFDINIR 300 MG ORAL CAPSULE by mouth twice a day 2011 CEFDINIR 300 MG ORAL CAPSULE 050510 CEFDINIR Inactive PREDNISONE 20 MG ORAL TABLET 2 tabs daily for 3 days, 1 tab daily for 3 days, 1/2 tab daily for 2 days PREDNISONE 20 MG ORAL T ABLET 822376 PREDNISONE Inactive AVELOX 400 MG ORAL TABLET 1 tab by mouth daily AVELOX 400 MG ORAL TABLET 486061 MOXIFLOXACIN HCL Inactive AVELOX 400 MG ORAL TABLET 1 tab by mouth daily AVELOX 400 MG ORAL TABLET 604122 MOXIFLOXACIN HCL Inactive PREDNISONE 20 MG ORAL TABLET Take 3 tabs daily for 3 d ays, 2 tabs daily for 3 days, 1 tab daily for 3 days, 1/2 tab daily for 3 days 11/07 PREDNISONE 20 MG ORAL TABLET 586381 PREDNISONE Inactive LEVAQUIN 500 MG ORAL TABLET take one po QD LEVAQUIN 500 MG ORAL TABLET 860272 LEVOFLOXACIN Inactive AZITHROMYCIN 250 MG ORAL TABLET 2 po qd x 1 day, then 1 po q d x 4 days AZITHROMYCIN 250 MG ORAL TABLET 143220 AZITHROMY GIOVANNI Inactive MEDROL 4 MG ORAL TABLET THERAPY PACK 6 tabs on day 1, 5 tabs on day 2, 4 tabs on day 3, 3 tabs on day 4, 2 tabs on day 5, 1 tab on day 6 2013 MEDROL 4 MG ORAL TABLET THERAPY PACK 150947 METHYLPREDNISOLONE Treichlers ctive CHERATUSSIN AC 100-10 MG/5ML ORAL SYRUP 5ml po q6hr PRN Cough 20 13/04/14 CHERATUSSIN AC 100-10 MG/5ML ORAL SYRUP 124869 GUAIFENE SIN-CODEINE Inactive TRIAMCINOLONE ACETONIDE 0.1 % EXTERNAL CREAM apply three roger es daily prn rash TRIAMCINOLONE ACETONIDE 0.1 % EXTERNAL CREAM 101 4314 TRIAMCINOLONE ACETONIDE Inactive AZITHROMYCIN 250 MG ORAL TABLET 2 po qd x 1 day, then 1 po q d x 4 days AZITHROMYCIN 250 MG ORAL TABLET 403349 AZITHROMY GIOVANNI Inactive MEDROL 4 MG ORAL TABLET THERAPY PACK 6 pills x 1 day, then 5 pills x 1 day then 4 pills x 1 day, then 3 pills x 1 day, then 2 pills x 1 day, then 1 pill x 1 day, then stop MEDROL 4 MG ORAL TABLET THERAPY PACK 178319 METHYLPREDNISOLONE Inactive AMOXICILLIN 500 MG ORAL CAPSULE 1 tab by mouth 3 times daily x 10 days AMOXICILLIN 500 MG ORAL CAPSULE 935020 AMOXICILL IN Inactive AMOXICILLIN 500 MG ORAL CAPSULE 1 tab by mouth 3 times daily x 10 days AMOXICILLIN 500 MG ORAL CAPSULE [id number] AMOXICILL IN Inactive ZITHROMAX 250 MG ORAL TABLET 2 po today, then 1 po q days 2-5 20 12/08/14 ZITHROMAX 250 MG ORAL TABLET 281430 AZITHROMYCIN Greer ctive AUGMENTIN 875-125 MG ORAL TABLET 1 po BID x 10 days 20 13/01/20 AUGMENTIN 875-125 MG ORAL TABLET 295036 AMOXICILLIN-POT CLAVULANATE Inactive ZITHROMAX Z-REYNA 250 MG ORAL TABLET 2 today, then 1 daily for 4 d ays ZITHROMAX Z-REYNA 250 MG ORAL TABLET 142460 AZITHROMYCIN Inactive ZITHROMAX 250 MG ORAL TABLET 2 po today, then 1 po q days 2-5 20 14/03/21 ZITHROMAX 250 MG ORAL TABLET 222300 AZITHROMYCIN Treichlers ctive ZITHROMAX Z-REYNA 250 MG ORAL TABLET 2 today, then 1 daily for 4 d ays ZITHROMAX Z-REYNA 250 MG ORAL TABLET 029896 AZITHROMYCIN Inactive CEFDINIR 300 MG ORAL CAPSULE 1 po BID x 10 days 06/21 CEFDINIR 300 MG ORAL CAPSULE 574398 CEFDINIR Inactive ZITHROMAX 250 MG ORAL TABLET 2 po today, then 1 po q days 2-5 20 13/08/10 ZITHROMAX 250 MG ORAL TABLET 418913 AZITHROMYCIN Greer ctive LEVAQUIN 500 MG ORAL TABLET 1 tablet by mouth daily 13/09/24 LEVAQUIN 500 MG ORAL TABLET 959377 LEVOFLOXACIN Inactive SINGULAIR 10 MG ORAL TABLET 1 po qday for allergies 20 14/01/12 SINGULAIR 10 MG ORAL TABLET 20010504 MONTELUKAST SODIUM Inactive AMOXICILLIN 500 MG ORAL CAPSULE 2 po BID x 10 days 201 09/29/08 AMOXICILLIN 500 MG ORAL CAPSULE 303498 AMOXICILLIN Inactive PREDNISONE 20 MG ORAL TABLET 2 tabs daily for 3 days, 1 tab daily for 3 days, 1/2 tab daily for 2 days PREDNISONE 20 MG ORAL T ABLET 429821 PREDNISONE Inactive ZITHROMAX Z-REYNA 250 MG ORAL TABLET 2 today, then 1 daily for 4 d ays ZITHROMAX Z-REYNA 250 MG ORAL TABLET 356722 AZITHROMYCIN Inactive PREDNISONE 20 MG ORAL TABLET 2 tabs daily for 3 days, 1 tab daily for 3 days, 1/2 tab daily for 2 days PREDNISONE 20 MG ORAL T ABLET 209133 PREDNISONE Inactive ZITHROMAX 250 MG ORAL TABLET 2 po today, then 1 po q days 2-5 20 14/09/04 ZITHROMAX 250 MG ORAL TABLET 001604 AZITHROMYCIN Treichlers ctive AMOXICILLIN 500 MG ORAL CAPSULE 1 cap by mouth three times a day AMOXICILLIN 500 MG ORAL CAPSULE 184839 AMOXICILLIN Inactive TERBINAFINE HCL 250 MG ORAL TABLET 1 qDay for nail fungus 7 TERBINAFINE HCL 250 MG ORAL TABLET 053812 TERBINAFINE HCL Inact nael AUGMENTIN 875-125 MG ORAL TABLET 1 po BID x 10 days 16/03/22 AUGMENTIN 875-125 MG ORAL TABLET 048372 AMOXICILLIN-POT CLAVULANATE Inactive PREDNISONE 20 MG ORAL TABLET 2 po qd x 5 days PREDNISONE 20 MG ORAL TABLET 011880 PREDNISONE Inactive AZITHROMYCIN 250 MG ORAL TABLET 2 po qd x 1 day, then 1 po q d x 4 days AZITHROMYCIN 250 MG ORAL TABLET 549918 AZITHROMY GIOVANNI Inactive PREDNISONE 50 MG ORAL TABLET Take 50 mg dialy for 6 day s 7 PREDNISONE 50 MG ORAL TABLET 106828 PREDNISONE Inactive AUGMENTIN 875-125 MG ORAL TABLET 1 po BID x 10 days 18/04/16 AUGMENTIN 875-125 MG ORAL TABLET 903284 AMOXICILLIN-POT CLAVULANATE Inactive DOXYCYCLINE HYCLATE 100 MG ORAL CAPSULE 1 cap by mouth twice latasha ly DOXYCYCLINE HYCLATE 100 MG ORAL CAPSULE 3753480 DOXYCYCL INE HYCLATE Inactive PREDNISONE 20 MG ORAL TABLET Take 2 tabs day 1 and 2 and 1 t ab days 3 and 4 PREDNISONE 20 MG ORAL TABLET 027055 PREDNISONE Inactive Vital Signs Date Name Value [...] Report: Basic Metabolic Panel - Chem istry sodium, serum 139 mmol/L 204-927 2568/03/19 potassium, serum 3.6 mmol/L 3.5-5.2 chloride, serum 100 mmol/L 98-107 carbon dioxide, venous blood 30.3 mmol/L 21.0-32 .0 blood glucose 101 mg/dL 65-110 calcium, serum 9.4 mg/dL 8.5-10.1 urea nitrogen, blood 10 mg/dL 7-18 creatinine, serum 0.96 mg/dL 0.60-1.30 sodium, serum 139 mmol/L 787-255 5768/10/12 potassium, serum 3.8 mmol/L 3.5-5.2 chloride, serum 102 mmol/L 98-107 carbon dioxide, venous blood 29.4 mmol/L 21.0-32 .0 blood glucose 103 mg/dL 65-95 calcium, serum 8.8 mg/dL 8.5-10.1 urea nitrogen, blood 10 mg/dL 7-18 creatinine, serum 0.97 mg/dL 0.60-1.30 Estimated Glomerular Filtration Rate (calc) 62 (?) mL/min/1.73m2 = OR > 60 mL/min Encounters Code Encounter Date Provider Facility CPT-04845 [id number] Vst-Est Level IV 08:41:[address] Carlton Hu MD [facility] [place] CPT-77095 Level 3 Est. Patient 09:46:49 FIREFIGHTER TYPE ONE David lion APRN [facility] CPT-07556 [id number] Vst-Est Level III 11:12:16 CDT Yanet Bess DO [facility] CPT-56496 Level 3 Est. Patient 11:34:49 FIREFIGHTER TYPE ONE Perez Mora MD [facility] CPT-79814 Level 4 Est. Patient 09:51:32 FIREFIGHTER TYPE ONE Carlton rich MD [facility] CPT-52151 Level 3 Est. Patient 10:26:00 FIREFIGHTER TYPE ONE Elise Are ll [facility] CPT-66758 Level 3 Est. Patient 13:35:41 FIREFIGHTER TYPE ONE Carlton rich MD [facility] [place] CPT-27640 Level 3 Est. Patient 10:03:52 FIREFIGHTER TYPE ONE Carlton rich MD [facility] CPT-34631 Level 3 Est. Patient 12:17:50 CDT Hugo Restrepo MD [facility] CPT-71691 Level 3 Est. Patient 13:42:38 CDT Elise Are ll [facility] CPT-92550 Level 3 Est. Patient 13:23:51 CDT Diya cobian [facility] CPT-48059 Level 3 Est. Patient 14:22:19 FIREFIGHTER TYPE ONE Diya cobian [facility] CPT-56582 Level 3 Est. Patient 10:11:46 CDT Carlton rich MD [facility] CPT-63714 Level 3 Est. Patient 17:29:43 CDT Elise Are [facility] CPT-33019 Level 3 Est. Patient 11:58:06 CDT Elise Are [facility] CPT-89444 Level 4 Est. Patient 14:36:51 CDT Carlton rich MD [facility] CPT-65318 Level 3 Est. Patient 18:16:00 FIREFIGHTER TYPE ONE Blaine HERNANDEZ [facility] CPT-81419 Level 3 Est. Patient 09:45:49 FIREFIGHTER TYPE ONE Carlton rich MD [facility] CPT-54304 Level 3 Est. Patient 13:19:20 CDT Carlton rich MD [facility] CPT-18561 Level 3 Est. Patient 13:06:43 CDT Ridge tam DO [facility] CPT-22287 Level 3 Est. Patient 10:03:07 CDT Perez Mora MD [facility] CPT-93156 Level 3 Est. Patient 19:50:35 FIREFIGHTER TYPE ONE Carlton rich MD [facility]-23011 Level 4 Est. Patient 18:05:01 FIREFIGHTER TYPE ONE Carlton rich MD [facility]-63696 Level 3 Est. Patient 10:45:55 FIREFIGHTER TYPE ONE Hugo Restrepo MD [facility]-83485 Level 3 Est. Patient 14:12:49 CDT Griffin HERNANDEZ [facility]-40890 Level 3 Est. Patient 17:37:24 CDT Carlton rich MD [facility]-49137 Level 3 Est. Patient 16:51:54 CDT Carlton rich MD [facility]-52664 Level 3 Est. Patient 12:18:11 CDT Hugo Restrepo MD [facility] CPT-19809 Level 3 Est. Patient 11:30:25 CDT Marcy crisostomo MD PhD [facility]-95691 Level 3 Est. Patient 12:00:47 FIREFIGHTER TYPE ONE Carlton rich MD [facility]-41504 Level 3 Est. Patient 16:31:06 FIREFIGHTER TYPE ONE Carlton rich MD [facility] CPT-56587 Level 3 Est. Patient 16:23:24 FIREFIGHTER TYPE ONE Ridge atm DO [facility] CPT-18093 Level 3 Est. Patient 12:34:12 CDT Carlton rich MD [facility]-26732 Level 2 Est. Patient 15:43:33 CDT Robi armstrong MD [facility]-93514 Level 4 Est. Patient 14:04:44 CDT Carlton rich MD [facility] CPT-05616 Level 3 Est. Patient 05:47:59 CDT Ridge tam DO [facility] CPT-07081 Level 3 Est. Patient 13:12:53 FIREFIGHTER TYPE ONE Carlton rich MD [facility] CPT-47436 Level 3 Est. Patient 14:26:53 CDT Hugo Restrepo MD [facility] Procedures Code Procedure Name Date Entry Date Standard Desc ription CPT-000 Give Appropriate Flu Vaccine 14:14:31 CDT 2 CPT-J1040 Depo Medrol 80 mg (Methyl Prednisolone A cetate) 10:42:44 CDT CPT-J1100 Decadron 8mg (Dexamethasone) 10:42:44 CDT 2 CPT-J0696 Rocephin 1gm Inj Solr 14:32:13 CDT CPT-J1020 Depo Medrol 60 mg (Methyl Prednisolone A cetate) 14:32:13 CDT CPT-J1100 Decadron 6mg (Dexamethasone) 14:32:13 CDT 2 CPT-00152 Hip bilat min 2V w AP pelvis 13:16:20 CDT 2 CPT-42476 Pelvis only 13:07:33 CDT CPT-39446 Spec Collection and Handling Fee 11:25:12 C DT CPT-23257 Fluzone Quadrivalent Intramuscular Suspe nsion 0.5 ML 14:31:55 CDT CPT-44386 Abx/Therapy Injection 13:28:47 FIREFIGHTER TYPE ONE CPT-J2930 Solu Medrol 125 mg (Methyl Prednisolone Sodium Succinate) 12:00:47 FIREFIGHTER TYPE ONE CPT-80527 Venipuncture Draw Fee 11:33:31 CDT CPT-16968 EKG Trac and Interp 11:21:09 CDT CPT-84315 Chest 2V Frontal and Lat 11:21:09 CDT 12/15 CPT-10461 Venipuncture Draw Fee 08:02:34 CDT CPT-56623 Chest 2V Frontal and Lat 05:47:59 CDT 06/05
--- OUTSIDE RECORDS SUMMARY | 2019-10-08 08:03 | XMS REPORT | Clinical Summary ---
Author Author Caitlin, Juliana Martinez Organization [facility] Address Unknown Phone Unavailable Allergies, Adverse Reactions, Alerts Allergy Name Reaction Description Start Date Severity Status Pr ovider No Known Allergies Madhuri Menchaca RN Conditions or Problems Problem Name Problem Code [...] Active Carlton Hu MD Headache DEPRESSION 311 Active Carlton Hu MD Depressive disorder, not elsewhere classified Menopause 627.2 Active Carlton Hu MD [...] URI 465.9 Inactive Ridge Bess DO Ac [place] upper respiratory infections of unspecified site Body [...] unspecified Morbid obesity due to excess calories Active David Lopes APRN Obesity, unspecified BRONCHITIS ICD-490 Inactive Hugo Restrepo MD 201 [...] Generic Name NDC Status Provider Patient Instruction TUSSIONEX PENNKINETIC ER 10-8 MG/5ML ORAL SUSPENSION E XTENDED RELEASE 5ml po q12hr PRN Cough HYDROCOD POLST-CHLORPHEN POLST 69689641718 Active 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 MANUAL EQUIPMENT MECHANIC Active PREDNISONE 20 MG ORAL TABLET Take 2 tabs day 1 and 2 and 1 t ab days 3 and 4 PREDNISONE 07914220214 No Longer Active 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 MANUAL EQUIPMENT MECHANIC Active DOXYCYCLINE HYCLATE 100 MG ORAL CAPSULE 1 cap by mouth twice latasha ly DOXYCYCLINE HYCLATE 20149188031 No Longer Active 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 MANUAL EQUIPMENT MECHANIC Active TOPAMAX 100 MG ORAL TABLET Take 1 tablet po bid TOPIRAMATE 68900969484 No Longer Active 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 MANUAL EQUIPMENT MECHANIC Active TUSSIONEX PENNKINETIC ER 10-8 MG/5ML ORAL SUSPENSION E XTENDED RELEASE 5ml po q12hr PRN Cough HYDROCOD POLST-CHLORPHEN POLST 5 9010680278 No Longer Active 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 MANUAL EQUIPMENT MECHANIC Active AUGMENTIN 875-125 MG ORAL TABLET 1 po BID x 10 days 20 18/04/16 AMOXICILLIN-POT CLAVULANATE 59819632591 No Longer Active 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 MANUAL EQUIPMENT MECHANIC Active PREDNISONE 50 MG ORAL TABLET Take 50 mg dialy for 6 day s 7 PREDNISONE 37667396008 No Longer Active David Lopes APRN Active TUSSIONEX PENNKINETIC ER 10-8 MG/5ML ORAL SUSPENSION E XTENDED RELEASE 5ml po q12hr PRN Cough HYDROCOD POLST-CHLORPHEN POLST 5 8260557812 No Longer Active Cherelle Torres RN Active PREDNISONE 20 MG ORAL TABLET two tabs by mouth today, then one tab by mouth days two and three and four PREDNISONE 53203290855 No Lo nger Active Cherelle Torres RN Active AZITHROMYCIN 250 MG ORAL TABLET 2 po qd x 1 day, then 1 po q d x 4 days AZITHROMYCIN 30498620380 No Longer Active Ridge Bess DO Active PREDNISONE 20 MG ORAL TABLET 2 po qd x 5 days P REDNISONE 78591006311 No Longer Active Perez Mora MD Active PROAIR HFA 108 (90 BASE) MCG/ACT INHALATION AEROSOL SO LUTION 2 puffs four times a day as needed ALBUTEROL SULFATE 55255535197 No Long er Active Becky AGUILARA Active ASPIRIN 81 MG ORAL TABLET 1 po qd ASPIRIN 44705962902 Active Carlton Hu MD Active PREDNISONE 20 MG ORAL TABLET 1 tab twice daily for 3 d ay, then one daily for three days PREDNISONE 36793117620 No Longer Active Carlton Hu MD Active AUGMENTIN 875-125 MG ORAL TABLET 1 po BID x 10 days 20 16/03/22 AMOXICILLIN-POT CLAVULANATE 21327143845 No Longer Active Elise Garcia APRN Active TERBINAFINE HCL 250 MG ORAL TABLET 1 qDay for nail fungus 7 TERBINAFINE HCL 30655735866 No Longer Active Carlton Hu MD A ctive AMOXICILLIN 500 MG ORAL CAPSULE 1 cap by mouth three times a day AMOXICILLIN 97757994048 No Longer Active Carlton Hu MD Active ELMIRON 100 MG ORAL CAPSULE 2 tablets in the am and 1 tablet at hs PENTOSAN POLYSULFATE SODIUM 44659091187 No Longer Active Robert Hu MD Active MUCINEX D 60-600 MG ORAL TABLET EXTENDED RELEASE 12 HOUR 1 t ab po q am PSEUDOEPHEDRINE-GUAIFENESIN 74531109965 No Longer Act nael Carlton Hu MD Active MUCINEX DM MAXIMUM STRENGTH 60-1200 MG ORAL TABLET EXT ENDED RELEASE 12 HOUR 1 tab po q am DEXTROMETHORPHAN-GUAIFENESIN 96068579963 No Longer Active Carlton Hu MD Active TUSSIONEX PENNKINETIC ER 10-8 MG/5ML ORAL SUSPENSION E XTENDED RELEASE 5ml po q12hr PRN Cough HYDROCOD POLST-CHLORPHEN POLST 5 0957140074 No Longer Active Carlton Hu MD Active POTASSIUM CHLORIDE ER 20 MEQ ORAL TABLET EXTENDED RELE ASE Take 1 by mouth 4 times daily for 7 days POTASSIUM CHLORIDE 81432332392 No Longer Active Carlton Hu MD Active ZITHROMAX 250 MG ORAL TABLET 2 po today, then 1 po q days 2-5 14/09/04 AZITHROMYCIN 24903991154 No Longer Active Elise Garcia APRN Active TUSSIONEX PENNKINETIC ER 10-8 MG/5ML ORAL SUSPENSION E XTENDED RELEASE 5 ml twice a day as needed for cough HYDROCOD POLST-CHLORPH EN POLST 16639690984 No Longer Active Elise Garcia APRN Active MONTELUKAST SODIUM 10 MG ORAL TABLET 1 po daily for Allergy MONTELUKAST SODIUM 74180734887 Active ALFREDO Holly Act nael TUSSIONEX PENNKINETIC ER 10-8 MG/5ML ORAL SUSPENSION E XTENDED RELEASE 5ml po q12hr PRN Cough HYDROCOD POLST-CHLORPHEN POLST 5 3236438437 No Longer Active Hugo Restrepo MD Active GABAPENTIN 100 MG ORAL CAPSULE 1 po BID for fibromyalgia GABAPENTIN 08934952704 Active Carlton Hu MD Active LYRICA 100 MG ORAL CAPSULE Take 1 tab po BID for fibromyalgia 20 11/08/21 PREGABALIN 58482909166 No Longer Active Elise Garcia APRN A ctive PREDNISONE 20 MG ORAL TABLET 2 tabs daily for 3 days, 1 tab daily for 3 days, 1/2 tab daily for 2 days PREDNISONE 78625063744 No Longer Active Venullina Cesarl MANUAL EQUIPMENT MECHANIC Active TUSSIONEX PENNKINETIC ER 10-8 MG/5ML ORAL SUSPENSION E XTENDED RELEASE 5 mL PO q 12 hrs PRN cough HYDROCOD POLST-CHLORPHEN POLST 179462 54584 No Longer Active Jillina Frakerriel MANUAL EQUIPMENT MECHANIC Active FLUTICASONE PROPIONATE 50 MCG/ACT NASAL SUSPENSION 2 s prays each nostril daily until bottle is empty FLUTICASONE PROPIONATE 073101425 99 No Longer Active Jillina Frazell MANUAL EQUIPMENT MECHANIC Active ASMANEX 60 METERED DOSES 220 MCG/INH INHALATION AEROSO L POWDER BREATH ACTIVATED 1 puff bid with rinse after MOMETASONE FUROATE 7570822 4102 No Longer Active Jillina Cesarl MANUAL EQUIPMENT MECHANIC Active ZITHROMAX Z-REYNA 250 MG ORAL TABLET 2 today, then 1 daily for 4 d ays AZITHROMYCIN 32327393522 No Longer Active Elise Garcia MANUAL EQUIPMENT MECHANIC Active TUSSIONEX PENNKINETIC ER 10-8 MG/5ML ORAL SUSPENSION E XTENDED RELEASE 5ml po q12hr PRN Cough HYDROCOD POLST-CHLORPHEN POLST 5 2221377582 No Longer Active Elise Garcia APRN Active PREDNISONE 20 MG ORAL TABLET 2 tabs daily for 3 days, 1 tab daily for 3 days, 1/2 tab daily for 2 days PREDNISONE 24576325521 No Longer Active Jillina Cesarl MANUAL EQUIPMENT MECHANIC Active AMOXICILLIN 500 MG ORAL CAPSULE 2 po BID x 10 days 201 09/29/08 AMOXICILLIN 31579640172 No Longer Active Jillina Cesarl MANUAL EQUIPMENT MECHANIC Act nael SINGULAIR 10 MG ORAL TABLET 1 po qday for allergies 20 14/01/12 MONTELUKAST SODIUM 18450341177 No Longer Active Carlton Hu MD Active LEVAQUIN 500 MG ORAL TABLET 1 tablet by mouth daily 13/09/24 LEVOFLOXACIN 74605012885 No Longer Active Carlton Hu MD Acti ve FLUTICASONE PROPIONATE 50 MCG/ACT NASAL SUSPENSION 2 s prays each nostril daily for 2 weeks, then 1 spray each nostril daily. FLUTICASONE PROPIONATE 03031113539 Active ALFREDO Holly Active ZITHROMAX 250 MG ORAL TABLET 2 po today, then 1 po q days 2-5 20 13/08/10 AZITHROMYCIN 56933566970 No Longer Active Elise Garcia APRN Active XANAX 0.5 MG ORAL TABLET one tablet by mouth daily prn anxiety 2015 ALPRAZOLAM 16528893339 Active ALFREDO Holly Active CYMBALTA 30 MG ORAL CAPSULE DELAYED RELEASE PARTICLES 1 cap by mouth daily for depression DULOXETINE HCL 04702960006 Active ALFREDO Holly Active CEFDINIR 300 MG ORAL CAPSULE 1 po BID x 10 days CEFDINIR 85062897884 No Longer Active Carlton Hu MD Active ZOCOR 40 MG ORAL TABLET 1 tab by mouth daily SI MVASTATIN 89985521192 No Longer Active Carlton Hu MD Active CYCLOBENZAPRINE HCL 10 MG ORAL TABLET 1 tablet by mouth BID prn had pain CYCLOBENZAPRINE HCL 45101403392 No Longer Active Jayden Hu MD Active LEVOFLOXACIN 500 MG ORAL TABLET 1 tab PO daily x 10 days LEVOFLOXACIN 18659731913 No Longer Active Carlton Hu MD Acti ve PREDNISONE 20 MG ORAL TABLET 3 tab PO qd x 2d, 2 tab P O qd x 2d, 1 tab PO qd x 2d, 1/2 tab PO qd x 2d PREDNISONE 36473244756 No Lo nger Active Carlton Hu MD Active FLUTICASONE PROPIONATE 50 MCG/ACT NASAL SUSPENSION 1 t o 2 sprays each nostril daily FLUTICASONE PROPIONATE 05782128859 No Longer Ac tive Blaine HERNANDEZ Active CHERATUSSIN AC 100-10 MG/5ML ORAL SYRUP 1 tsp by mouth every 4 hours as needed for cough GUAIFENESIN-CODEINE 25812731174 No Longe r Active Blaine HERNANDEZ Active PROMETHAZINE-CODEINE 6.25-10 MG/5ML ORAL SYRUP 1 tsp b y mouth every 6 hours if needed for cough PROMETHAZINE-CODEINE 19293208840 No Longer Active Blaine HERNANDEZ Active CHERATUSSIN AC 100-10 MG/5ML ORAL SYRUP 1 tsp by mouth every 4 hours as needed for cough GUAIFENESIN-CODEINE 35420804811 No Longe r Active Blaine HERNANDEZ Active ZITHROMAX Z-REYNA 250 MG ORAL TABLET 2 today, then 1 daily for 4 d ays AZITHROMYCIN 77174060919 No Longer Active Columba Raida Act nael ZITHROMAX 250 MG ORAL TABLET 2 po today, then 1 po q days 2-5 20 14/03/21 AZITHROMYCIN 54890271124 No Longer Active Carlton Hu MD Active ZITHROMAX Z-REYNA 250 MG ORAL TABLET 2 today, then 1 daily for 4 d ays AZITHROMYCIN 58625567273 No Longer Active Columba Raida Act nael AUGMENTIN 875-125 MG ORAL TABLET 1 po BID x 10 days 13/01/20 AMOXICILLIN-POT CLAVULANATE 51771046710 No Longer Active Diya De Guzman APRN Active ZITHROMAX 250 MG ORAL TABLET 2 po today, then 1 po q days 2-5 20 12/08/14 AZITHROMYCIN 32686848992 No Longer Active Carlton Hu MD Active TRAMADOL HCL 50 MG ORAL TABLET 1 po tid with ES Tylenol TRAMADOL HCL 64631502605 Active ALFREDO Holly Active PREMARIN 0.625 MG ORAL TABLET TAKE 1 TAB BY MOUTH DAILY ESTROGENS CONJUGATED 32831266823 No Longer Active Ridge Bess DO A ctive CYMBALTA 30 MG ORAL CAPSULE DELAYED RELEASE PARTICLES 1 cap by mouth daily DULOXETINE HCL 49508563817 No Longer Active Ridge Ya ee DO Active AMOXICILLIN 500 MG ORAL CAPSULE 1 tab by mouth 3 times daily x 10 days AMOXICILLIN 22963055296 No Longer Active Carlton bustamante MD Active AMOXICILLIN 500 MG ORAL CAPSULE 1 tab by mouth 3 times daily x 10 days AMOXICILLIN 20633283301 No Longer Active Carlton bustamante MD Active PROMETHAZINE-CODEINE 6.25-10 MG/5ML ORAL SYRUP 1 tsp b y mouth every 8 hours prn cough PROMETHAZINE-CODEINE 79090782981 No Longer Acti ve Carlton Hu MD Active MEDROL 4 MG ORAL TABLET THERAPY PACK 6 pills x 1 day, then 5 pills x 1 day then 4 pills x 1 day, then 3 pills x 1 day, then 2 pills x 1 day, then 1 pill x 1 day, then stop METHYLPREDNISOLONE 16064397256 No Long er Active Perez Mora MD Active AZITHROMYCIN 250 MG ORAL TABLET 2 po qd x 1 day, then 1 po q d x 4 days AZITHROMYCIN 85983377044 No Longer Active Perez Ambriz MD Active SYMBICORT 160-4.5 MCG/ACT INHALATION AEROSOL 2 puffs bid wit h rinse after BUDESONIDE-FORMOTEROL FUMARATE 42439798126 N o Longer Active Perez Mora MD Active LYRICA 75 MG ORAL CAPSULE TAKE 1 CAPSULE BY MOUTH TWICE DAILY PREGABALIN 57546614570 No Longer Active Carlton Hu MD Acti ve TOPAMAX 25 MG ORAL TABLET 1 qHS x 1 week, then 1 BID x 1 week, then 1 qAM and 2 qHS x 1 week, then 2 BID (migraine prevention) T OPIRAMATE 24672414657 No Longer Active Jerica FUENTES Active TOPAMAX 50 MG ORAL TABLET take 1 tab po BID for migraines. 07/02 TOPIRAMATE 01741002611 No Longer Active Jerica FUENTES Active TRIAMCINOLONE ACETONIDE 0.1 % EXTERNAL CREAM apply three roger es daily prn rash TRIAMCINOLONE ACETONIDE 67835968759 No Longer Active Carlton Hu MD Active PAXIL 40 MG ORAL TABLET take 1 tab po qday for depression 0 PAROXETINE HCL 13588663641 Active ALFREDO Holly Active CHERATUSSIN AC 100-10 MG/5ML ORAL SYRUP 5ml po q6hr PRN Cough 20 13/04/14 GUAIFENESIN-CODEINE 45065596290 No Longer Active Carlton Hu MD Active MEDROL 4 MG ORAL TABLET THERAPY PACK 6 tabs on day 1, 5 tabs on day 2, 4 tabs on day 3, 3 tabs on day 4, 2 tabs on day 5, 1 tab on day 6 2013 METHYLPREDNISOLONE 73647498373 No Longer Active Perez Mora MD Active AZITHROMYCIN 250 MG ORAL TABLET 2 po qd x 1 day, then 1 po q d x 4 days AZITHROMYCIN 41154691177 No Longer Active Perez Ambriz MD Active PROPRANOLOL HCL 60 MG ORAL TABLET 1 PO Q D PROPRANOLOL HCL 27155203422 No Longer Active Perez Mora MD Activ e CHERATUSSIN AC 100-10 MG/5ML ORAL SYRUP take one tsp po Q 6h ours prn cough GUAIFENESIN-CODEINE 95577818873 No Longer Active Zia Mora MD Active AUGMENTIN 875-125 MG ORAL TABLET 1 tab by mouth twice daily with food AMOXICILLIN-POT CLAVULANATE 50189427636 No Longer Act nael Perez Mora MD Active CHERATUSSIN AC 100-10 MG/5ML ORAL SYRUP 1 tsp by mouth every 4 hours as needed for cough GUAIFENESIN-CODEINE 51875222632 No Longe r Active Hugo Restrepo MD Active ACETAMINOPHEN-CODEINE #3 300-30 MG ORAL TABLET 1 PO Q 4-6 HRS [place] ACETAMINOPHEN-CODEINE 61242803337 No Longer Active Hugo Restrepo MD Active LEVAQUIN 500 MG ORAL TABLET take one po QD LEVO FLOXACIN 07641535939 No Longer Active Griffin HERNANDEZ Active PREDNISONE 20 MG ORAL TABLET Take 3 tabs daily for 3 d ays, 2 tabs daily for 3 days, 1 tab daily for 3 days, 1/2 tab daily for 3 days 11/07 PREDNISONE 60213367153 No Longer Active Carlton Hu MD Acti ve AVELOX 400 MG ORAL TABLET 1 tab by mouth daily MOXIFLOXACIN HCL 66707756416 No Longer Active Carlton Hu MD Active CHERATUSSIN AC 100-10 MG/5ML ORAL SYRUP 1 tsp by mouth every 4 hours as needed for cough GUAIFENESIN-CODEINE 13241349303 No Longe r Active Hugo Restrepo MD Active AVELOX 400 MG ORAL TABLET 1 tab by mouth daily MOXIFLOXACIN HCL 71890139094 No Longer Active Marcy De La Rosa MD PhD Active TERBINAFINE HCL 250 MG ORAL TABLET 1 qDay T ERBINAFINE HCL 06271951045 No Longer Active Marcy De La Rosa MD PhD Active CHERATUSSIN AC 100-10 MG/5ML ORAL SYRUP 1 tsp by mouth every 4 hours as needed for cough GUAIFENESIN-CODEINE 85310824021 No Longe r Active Marcy De La Rosa MD PhD Active AVELOX 400 MG ORAL TABLET 1 tab by mouth daily MOXIFLOXACIN HCL 92000343012 No Longer Active Marcy De La Rosa MD PhD Active HYDROCODONE-ACETAMINOPHEN 5-325 MG ORAL TABLET 1 po q 6hr PRN co ugh HYDROCODONE-ACETAMINOPHEN 81814642143 No Longer Active Marcy De La Rosa MD PhD Active PREDNISONE 20 MG ORAL TABLET 2 tabs daily for 3 days, 1 tab daily for 3 days, 1/2 tab daily for 2 days PREDNISONE 01904930529 No Longer Active Carlton Hu MD Active CEFDINIR 300 MG ORAL CAPSULE by mouth twice a day 2011 CEFDINIR 82578513325 No Longer Active Carlton Hu MD Acti ve HYDROCHLOROTHIAZIDE 25 MG ORAL TABLET 1 TAB PO DAILY HYDROCHLOROTHIAZIDE 67284998328 Active ALFREDO Holly Ac tive ACETAMINOPHEN-CODEINE #3 300-30 MG ORAL TABLET 1 tablet po q 4-6 hrs prn pain ACETAMINOPHEN-CODEINE 34931003800 No Longer Active Ridge Bess DO Active ZITHROMAX 250 MG ORAL TABLET 2 po today, then 1 po q days 2-5 20 03/07/07 AZITHROMYCIN 34453841039 No Longer Active Carlton Hu MD Active CHERATUSSIN AC 100-10 MG/5ML ORAL SYRUP take 1 tsp po q4-6 h ours prn cough GUAIFENESIN-CODEINE 33316238060 No Longer Active Jayden Hu MD Active ACETAMINOPHEN-CODEINE #3 300-30 MG ORAL TABLET 1 PO Q 4-6 HR PRN PAIN ACETAMINOPHEN-CODEINE 74091929916 No Longer Active Da raimundo Hu MD Active LORTAB 7.5-500 MG/15ML ORAL ELIXIR 7.5 ml po q 4 hour prn cough HYDROCODONE-ACETAMINOPHEN 42984631252 No Longer Active Carlton Hu MD Active PREDNISONE 20 MG ORAL TABLET 1 po bid 3 days, then 1 po q day 3 days PREDNISONE 70256398463 No Longer Active Carlton Hu MD Active CEFDINIR 300 MG ORAL CAPSULE by mouth twice a day 2011 CEFDINIR 33326544213 No Longer Active Carlton Hu MD Acti ve CEFDINIR 300 MG ORAL CAPSULE by mouth twice a day 2010 CEFDINIR 98175847938 No Longer Active Carlton Hu MD Acti ve CEFDINIR 300 MG ORAL CAPSULE by mouth twice a day 2010 CEFDINIR 98607631541 No Longer Active Carlton Hu MD Acti ve TESSALON PERLES 100 MG ORAL CAPSULE 1 tablet by mouth 3 times daily as needed for cough BENZONATATE 39891723333 No Longer Active Carlton Hu MD Active CEFDINIR 300 MG ORAL CAPSULE by mouth twice a day 2010 CEFDINIR 66568199983 No Longer Active Carlton Hu MD Acti ve ZITHROMAX Z-REYNA 250 MG ORAL TABLET 2 today, then 1 daily for 4 d ays AZITHROMYCIN 11116018670 No Longer Active Hugo Restrepo MD Active TESSALON PERLES 100 MG ORAL CAPSULE 1 tablet by mouth 3 times daily as needed for cough TESSALON PERLES 100 MG ORAL CAPSULE 84125 7 BENZONATATE Inactive PREDNISONE 20 MG ORAL TABLET 1 po bid 3 days, then 1 po q day 3 days PREDNISONE 20 MG ORAL TABLET 623770 PREDNISONE [place] ctive LORTAB 7.5-500 MG/15ML ORAL ELIXIR 7.5 [...] cough CHERATUSSIN AC 100-10 MG/5ML ORAL SYRUP 930731 GUAIFENESIN-CODEINE Inactive ACETAMINOPHEN-CODEINE #3 300-30 MG ORAL TABLET 1 tablet po q 4-6 hrs prn pain ACETAMINOPHEN-CODEINE #3 300-30 MG ORAL TABLET ACETAMINOPHEN-CODEINE Inactive HYDROCODONE-ACETAMINOPHEN 5-325 MG ORAL TABLET 1 po q 6hr PRN co ugh HYDROCODONE-ACETAMINOPHEN 5-325 MG ORAL TABLET 373314 HYDROCODONE-ACETAMINOPHEN Inactive AVELOX 400 MG ORAL TABLET 1 tab by mouth daily AVELOX 400 MG ORAL TABLET 539310 MOXIFLOXACIN HCL Inactive CHERATUSSIN AC 100-10 MG/5ML ORAL SYRUP 1 tsp by mouth every 4 hours as needed for cough CHERATUSSIN AC 100-10 MG/5ML ORAL SYRUP 9 03102 GUAIFENESIN-CODEINE Inactive TERBINAFINE HCL 250 MG ORAL TABLET 1 qDay 07/08 TERBINAFINE HCL 250 MG ORAL TABLET 353856 TERBINAFINE HCL Inactive CHERATUSSIN AC 100-10 MG/5ML ORAL SYRUP 1 tsp by mouth every 4 hours as needed for cough CHERATUSSIN AC 100-10 MG/5ML ORAL SYRUP 9 53380 GUAIFENESIN-CODEINE Inactive ACETAMINOPHEN-CODEINE #3 300-30 MG ORAL TABLET 1 PO Q 4-6 HRS [place] N PAIN ACETAMINOPHEN-CODEINE #3 300-30 MG ORAL TABLET ACETAMINOPHEN-CODEINE Inactive CHERATUSSIN AC 100-10 MG/5ML ORAL SYRUP 1 tsp by mouth every 4 hours as needed for cough CHERATUSSIN AC 100-10 MG/5ML ORAL SYRUP 9 49717 GUAIFENESIN-CODEINE Inactive AUGMENTIN 875-125 MG ORAL TABLET 1 tab by mouth twice daily with food AUGMENTIN 875-125 MG ORAL TABLET 806473 AMOXICIL MADELINE-POT CLAVULANATE Inactive CHERATUSSIN AC 100-10 MG/5ML ORAL SYRUP take one tsp po Q 6h ours prn cough CHERATUSSIN AC 100-10 MG/5ML ORAL SYRUP 218396 GUAIFENESIN-CODEINE Inactive PROPRANOLOL HCL 60 MG ORAL TABLET 1 PO Q D PROPRANOLOL HCL 60 MG ORAL TABLET 803847 PROPRANOLOL HCL Inactive TOPAMAX 50 MG ORAL TABLET take 1 tab po BID for migraines. 07/02 TOPAMAX 50 MG ORAL TABLET 151417 TOPIRAMATE Inacti ve TOPAMAX 25 MG ORAL TABLET 1 qHS x 1 week, then 1 BID x 1 week, then 1 qAM and 2 qHS x 1 week, then 2 BID (migraine prevention) TOPAMAX 25 MG ORAL TABLET 018019 TOPIRAMATE Inactive LYRICA 75 MG ORAL CAPSULE TAKE 1 CAPSULE BY MOUTH TWICE DAILY LYRICA 75 MG ORAL CAPSULE PREGABALIN Inactive SYMBICORT 160-4.5 MCG/ACT INHALATION AEROSOL 2 puffs bid wit h rinse after SYMBICORT 160-4.5 MCG/ACT INHALATION AEROSOL BUDESONIDE- FORMOTEROL FUMARATE Inactive PROMETHAZINE-CODEINE 6.25-10 MG/5ML ORAL SYRUP 1 tsp b y mouth every 8 hours prn cough PROMETHAZINE-CODEINE 6.25-10 MG/ 5ML ORAL SYRUP 933078 PROMETHAZINE-CODEINE Inactive CYMBALTA 30 MG ORAL CAPSULE DELAYED RELEASE PARTICLES 1 cap by mouth daily CYMBALTA 30 MG ORAL CAPSULE DELAYED RELE ASE PARTICLES 369575 DULOXETINE HCL Inactive PREMARIN 0.625 MG ORAL TABLET TAKE 1 TAB BY MOUTH DAILY PREMARIN 0.625 MG ORAL TABLET ESTROGENS CONJUGATED Inactive CHERATUSSIN AC 100-10 MG/5ML ORAL SYRUP 1 tsp by mouth every 4 hours as needed for cough CHERATUSSIN AC 100-10 MG/5ML ORAL SYRUP 9 99324 GUAIFENESIN-CODEINE Inactive PROMETHAZINE-CODEINE 6.25-10 MG/5ML ORAL SYRUP 1 tsp b y mouth every 6 hours if needed for cough PROMETHAZINE-CODEINE 6.25-10 MG/5ML ORAL SYRUP 506819 PROMETHAZINE-CODEINE Inactive CHERATUSSIN AC 100-10 MG/5ML ORAL SYRUP 1 tsp by mouth every 4 hours as needed for cough CHERATUSSIN AC 100-10 MG/5ML ORAL SYRUP 9 79693 GUAIFENESIN-CODEINE Inactive FLUTICASONE PROPIONATE 50 MCG/ACT NASAL SUSPENSION 1 t o 2 sprays each nostril daily FLUTICASONE PROPIONATE 50 MCG/AC T NASAL SUSPENSION 4556986 FLUTICASONE PROPIONATE Inactive PREDNISONE 20 MG ORAL TABLET 3 tab PO qd x 2d, 2 tab P O qd x 2d, 1 tab PO qd x 2d, 1/2 tab PO qd x 2d PREDNISONE 20 MG ORAL TAB LET 486681 PREDNISONE Inactive LEVOFLOXACIN 500 MG ORAL TABLET 1 tab PO daily x 10 days LEVOFLOXACIN 500 MG ORAL TABLET 103682 LEVOFLOXACIN Inactive CYCLOBENZAPRINE HCL 10 MG ORAL TABLET 1 tablet by mouth BID prn had pain CYCLOBENZAPRINE HCL 10 MG ORAL TABLET 037185 CYCLOBENZAPRINE HCL Inactive ZOCOR 40 MG ORAL TABLET 1 tab by mouth daily 4 ZOCOR 40 MG ORAL TABLET 119920 SIMVASTATIN Inactive TUSSIONEX PENNKINETIC ER 10-8 MG/5ML [...] FLUTICASONE PROPIO EFE 50 MCG/ACT NASAL SUSPENSION 9092660 FLUTICASONE PROPIONATE Inactive TUSSIONEX PENNKINETIC ER 10-8 [...] three days PREDNISONE 20 MG ORAL TABLET 184608 PREDNIS ONE Inactive PROAIR HFA 108 (90 BASE) MCG/ACT INHALATION AEROSOL SO LUTION 2 puffs four times a day as needed PROAIR HFA 108 (90 B ASE) MCG/ACT INHALATION AEROSOL SOLUTION ALBUTEROL SULFATE Inactive PREDNISONE 20 MG ORAL TABLET two tabs by mouth today, then one tab by mouth days two and three and four PREDNISONE 20 MG ORAL TAB LET 451473 PREDNISONE Inactive TUSSIONEX PENNKINETIC ER 10-8 MG/5ML [...] bid 04/20 TOPAMAX 100 MG ORAL TABLET 338267 TOPIRAMATE Inactive ZITHROMAX Z-REYNA 250 MG ORAL TABLET 2 today, then 1 daily for 4 d ays ZITHROMAX Z-REYNA 250 MG ORAL TABLET 075533 AZITHROMYCIN Inactive CEFDINIR 300 MG ORAL CAPSULE [...] day 2011 CEFDINIR 300 MG ORAL CAPSULE 20020704 CEFDINIR Inactive ZITHROMAX 250 MG ORAL TABLET 2 po today, then 1 po q days 2-5 20 03/07/07 ZITHROMAX 250 MG ORAL TABLET 795374 AZITHROMYCIN [place] ctive CEFDINIR 300 MG ORAL CAPSULE by mouth twice a day 2011 CEFDINIR 300 MG ORAL CAPSULE 431682 CEFDINIR Inactive PREDNISONE 20 MG ORAL TABLET 2 tabs daily for 3 days, 1 tab daily for 3 days, 1/2 tab daily for 2 days PREDNISONE 20 MG ORAL T ABLET 270534 PREDNISONE Inactive AVELOX 400 MG ORAL TABLET 1 tab by mouth daily AVELOX 400 MG ORAL TABLET 524329 MOXIFLOXACIN HCL Inactive AVELOX 400 MG ORAL TABLET 1 tab by mouth daily AVELOX 400 MG ORAL TABLET 661774 MOXIFLOXACIN HCL Inactive PREDNISONE 20 MG ORAL TABLET Take 3 tabs daily for 3 d ays, 2 tabs daily for 3 days, 1 tab daily for 3 days, 1/2 tab daily for 3 days 11/07 PREDNISONE 20 MG ORAL TABLET 234675 PREDNISONE Inactive LEVAQUIN 500 MG ORAL TABLET take one po QD LEVAQUIN 500 MG ORAL TABLET 151833 LEVOFLOXACIN Inactive AZITHROMYCIN 250 MG ORAL TABLET 2 po qd x 1 day, then 1 po q d x 4 days AZITHROMYCIN 250 MG ORAL TABLET 106043 AZITHROMY GIOVANNI Inactive MEDROL 4 MG ORAL TABLET THERAPY PACK 6 tabs on day 1, 5 tabs on day 2, 4 tabs on day 3, 3 tabs on day 4, 2 tabs on day 5, 1 tab on day 6 2013 MEDROL 4 MG ORAL TABLET THERAPY PACK 884365 METHYLPREDNISOLONE [place] ctive CHERATUSSIN AC 100-10 MG/5ML ORAL SYRUP 5ml po q6hr PRN Cough 20 13/04/14 CHERATUSSIN AC 100-10 MG/5ML ORAL SYRUP 444173 GUAIFENE SIN-CODEINE Inactive TRIAMCINOLONE ACETONIDE 0.1 % EXTERNAL CREAM apply three roger es daily prn rash TRIAMCINOLONE ACETONIDE 0.1 % EXTERNAL CREAM 101 4314 TRIAMCINOLONE ACETONIDE Inactive AZITHROMYCIN 250 MG ORAL TABLET 2 po qd x 1 day, then 1 po q d x 4 days AZITHROMYCIN 250 MG ORAL TABLET 391998 AZITHROMY GIOVANNI Inactive MEDROL 4 MG ORAL TABLET THERAPY PACK 6 pills x 1 day, then 5 pills x 1 day then 4 pills x 1 day, then 3 pills x 1 day, then 2 pills x 1 day, then 1 pill x 1 day, then stop MEDROL 4 MG ORAL TABLET THERAPY PACK 624128 METHYLPREDNISOLONE Inactive AMOXICILLIN 500 MG ORAL CAPSULE 1 tab by mouth 3 times daily x 10 days AMOXICILLIN 500 MG ORAL CAPSULE 455373 AMOXICILL IN Inactive AMOXICILLIN 500 MG ORAL CAPSULE 1 tab by mouth 3 times daily x 10 days AMOXICILLIN 500 MG ORAL CAPSULE 538025 AMOXICILL IN Inactive ZITHROMAX 250 MG ORAL TABLET 2 po today, then 1 po q days 2-5 20 12/08/14 ZITHROMAX 250 MG ORAL TABLET 795323 AZITHROMYCIN [place] [facility] AUGMENTIN 875-125 MG ORAL TABLET 1 po BID x 10 days 20 13/01/20 AUGMENTIN 875-125 MG ORAL TABLET 308415 AMOXICILLIN-POT CLAVULANATE Inactive ZITHROMAX Z-REYNA 250 MG ORAL TABLET 2 today, then 1 daily for 4 d ays ZITHROMAX Z-REYNA 250 MG ORAL TABLET 462550 AZITHROMYCIN Inactive ZITHROMAX 250 MG ORAL TABLET 2 po today, then 1 po q days 2-5 20 14/03/21 ZITHROMAX 250 MG ORAL TABLET 793362 AZITHROMYCIN [place] ctive ZITHROMAX Z-REYNA 250 MG ORAL TABLET 2 today, then 1 daily for 4 d ays ZITHROMAX Z-REYNA 250 MG ORAL TABLET 865525 AZITHROMYCIN Inactive CEFDINIR 300 MG ORAL CAPSULE 1 po BID x 10 days 06/21 CEFDINIR 300 MG ORAL CAPSULE 515691 CEFDINIR Inactive ZITHROMAX 250 MG ORAL TABLET 2 po today, then 1 po q days 2-5 20 13/08/10 ZITHROMAX 250 MG ORAL TABLET 646979 AZITHROMYCIN [place] [facility] LEVAQUIN 500 MG ORAL TABLET 1 tablet by mouth daily 13/09/24 LEVAQUIN 500 MG ORAL TABLET 750789 LEVOFLOXACIN Inactive SINGULAIR 10 MG ORAL TABLET 1 po qday for allergies 20 14/01/12 SINGULAIR 10 MG ORAL TABLET 454993 MONTELUKAST SODIUM Inactive AMOXICILLIN 500 MG ORAL CAPSULE 2 po BID x 10 days 201 09/29/08 AMOXICILLIN 500 MG ORAL CAPSULE 633851 AMOXICILLIN Inactive PREDNISONE 20 MG ORAL TABLET 2 tabs daily for 3 days, 1 tab daily for 3 days, 1/2 tab daily for 2 days PREDNISONE 20 MG ORAL T ABLET 588657 PREDNISONE Inactive ZITHROMAX Z-REYNA 250 MG ORAL TABLET 2 today, then 1 daily for 4 d ays ZITHROMAX Z-REYNA 250 MG ORAL TABLET 153355 AZITHROMYCIN Inactive PREDNISONE 20 MG ORAL TABLET 2 tabs daily for 3 days, 1 tab daily for 3 days, 1/2 tab daily for 2 days PREDNISONE 20 MG ORAL T ABLET 786561 PREDNISONE Inactive ZITHROMAX 250 MG ORAL TABLET 2 po today, then 1 po q days 2-5 20 14/09/04 ZITHROMAX 250 MG ORAL TABLET 780981 AZITHROMYCIN [place] [facility] AMOXICILLIN 500 MG ORAL CAPSULE 1 cap by mouth three times a day AMOXICILLIN 500 MG ORAL CAPSULE 849028 AMOXICILLIN Inactive TERBINAFINE HCL 250 MG ORAL TABLET 1 qDay for nail fungus 7 TERBINAFINE HCL 250 MG ORAL TABLET 216657 TERBINAFINE HCL Inact nael AUGMENTIN 875-125 MG ORAL TABLET 1 po BID x 10 days 16/03/22 AUGMENTIN 875-125 MG ORAL TABLET 090329 AMOXICILLIN-POT CLAVULANATE Inactive PREDNISONE 20 MG ORAL TABLET 2 po qd x 5 days PREDNISONE 20 MG ORAL TABLET 016458 PREDNISONE Inactive AZITHROMYCIN 250 MG ORAL TABLET 2 po qd x 1 day, then 1 po q d x 4 days AZITHROMYCIN 250 MG ORAL TABLET 664114 AZITHROMY GIOVANNI Inactive PREDNISONE 50 MG ORAL TABLET Take 50 mg dialy for 6 day s 7 PREDNISONE 50 MG ORAL TABLET 170585 PREDNISONE Inactive AUGMENTIN 875-125 MG ORAL TABLET 1 po BID x 10 days 20 18/04/16 AUGMENTIN 875-125 MG ORAL TABLET 592449 AMOXICILLIN-POT CLAVULANATE Inactive DOXYCYCLINE HYCLATE 100 MG ORAL CAPSULE 1 cap by mouth twice latasha ly DOXYCYCLINE HYCLATE 100 MG ORAL CAPSULE 3510553 DOXYCYCL INE HYCLATE Inactive PREDNISONE 20 MG ORAL TABLET Take 2 tabs day 1 and 2 and 1 t ab days 3 and 4 PREDNISONE 20 MG ORAL TABLET 992083 PREDNISONE Inactive Vital Signs Date Name Value Unit Range Description blood pressure, diastolic, repeated by physician 80 [...] - Chem istry sodium, serum 139 mmol/L 582-744 0599/03/19 potassium, serum 3.6 mmol/L 3.5-5.2 chloride, serum 100 mmol/L 98-107 carbon dioxide, venous blood 30.3 mmol/L 21.0-32 .0 blood glucose 101 mg/dL 65-110 calcium, serum 9.4 mg/dL 8.5-10.1 urea nitrogen, blood 10 mg/dL 7-18 creatinine, serum 0.96 mg/dL 0.60-1.30 sodium, serum 139 mmol/L 106-431 3272/10/12 potassium, serum 3.8 mmol/L 3.5-5.2 chloride, serum 102 mmol/L 98-107 carbon dioxide, venous blood 29.4 mmol/L 21.0-32 .0 blood glucose 103 mg/dL 65-95 calcium, serum 8.8 mg/dL 8.5-10.1 urea nitrogen, blood 10 mg/dL 7-18 creatinine, serum 0.97 mg/dL 0.60-1.30 Estimated Glomerular Filtration Rate (calc) 62 (?) mL/min/1.73m2 = OR > 60 mL/min Encounters Code Encounter Date Provider Facility CPT-77520 Level 3 Est. Patient 09:46:49 SLOPE HOIST OPERATOR David Muñiz amisha [facility]-55322 [id number] Vst-Est Level III 11:12:16 CDT Yanet Bess DO [facility] CPT-81042 Level 3 Est. Patient 11:34:49 SLOPE HOIST OPERATOR Perez Mora MD [facility] CPT-44139 Level 4 Est. Patient 09:51:32 SLOPE HOIST OPERATOR Carlton rich MD [facility] CPT-31838 Level 3 Est. Patient 10:26:00 SLOPE HOIST OPERATOR [facility] CPT-59619 Level 3 Est. Patient 13:35:41 SLOPE HOIST OPERATOR Carlton rich MD [facility] CPT-70485 Level 3 Est. Patient 10:03:52 SLOPE HOIST OPERATOR Carlton rich MD [facility] CPT-65494 Level 3 Est. Patient 12:17:50 CDT Hugo Restrepo MD [facility] CPT-49061 Level 3 Est. Patient 13:42:38 CDT [facility] CPT-61648 Level 3 Est. Patient 13:23:51 CDT Diya cobian [facility] CPT-17378 Level 3 Est. Patient 14:22:19 SLOPE HOIST OPERATOR Diya cobian [facility] CPT-57921 Level 3 Est. Patient 10:11:46 CDT Carlton rich MD [facility] CPT-88591 Level 3 Est. Patient 17:29:43 CDT [facility] CPT-83005 Level 3 Est. Patient 11:58:06 CDT [facility] CPT-24602 Level 4 Est. Patient 14:36:51 CDT Carlton rich MD [facility]-33298 Level 3 Est. Patient 18:16:00 SLOPE HOIST OPERATOR Blaine Freeman [facility]-49375 Level 3 Est. Patient 09:45:49 SLOPE HOIST OPERATOR Carlton rich MD [facility]-07343 Level 3 Est. Patient 13:19:20 CDT Carlton rich MD [facility]-37563 Level 3 Est. Patient 13:06:43 CDT Ridge tam DO [facility]-21131 Level 3 Est. Patient 10:03:07 CDT Perez Mora MD [facility]-06228 Level 3 Est. Patient 19:50:35 SLOPE HOIST OPERATOR Carlton rich MD [facility]-43518 Level 4 Est. Patient 18:05:01 SLOPE HOIST OPERATOR Carlton rich MD [facility] CPT-89191 Level 3 Est. Patient 10:45:55 SLOPE HOIST OPERATOR Hugo Restrepo MD [facility]-32053 Level 3 Est. Patient 14:12:49 CDT Griffin lincoln [facility] [place]-07579 Level 3 Est. Patient 17:37:24 CDT Carlton rich MD [facility]-24689 Level 3 Est. Patient 16:51:54 CDT Carlton rich MD [facility]-41352 Level 3 Est. Patient 12:18:11 CDT Hugo Restrepo MD [facility]-54618 Level 3 Est. Patient 11:30:25 CDT Marcy crisostomo MD PhD [facility]-81381 Level 3 Est. Patient 12:00:47 SLOPE HOIST OPERATOR Carlton rich MD [facility] CPT-32708 Level 3 Est. Patient 16:31:06 SLOPE HOIST OPERATOR Carlton rich MD [facility] CPT-52999 Level 3 Est. Patient 16:23:24 SLOPE HOIST OPERATOR Ridge tam [facility] CPT-44187 Level 3 Est. Patient 12:34:12 CDT Carlton rich MD [facility] CPT-23026 Level 2 Est. Patient 15:43:33 CDT Robi armstrong MD [facility] CPT-56362 Level 4 Est. Patient 14:04:44 CDT Carlton rich MD [facility] CPT-14276 Level 3 Est. Patient 05:47:59 CDT Ridge tam [facility] CPT-69397 Level 3 Est. Patient 13:12:53 SLOPE HOIST OPERATOR Carlton rich MD [facility] CPT-47902 Level 3 Est. Patient 14:26:53 CDT Hugo Restrepo MD [facility] Procedures Code Procedure Name Date Entry Date Standard Desc ription CPT-000 Give Appropriate Flu Vaccine 14:14:31 CDT CPT-J1040 Depo Medrol 80 mg (Methyl Prednisolone A cetate) 10:42:44 CDT CPT-J1100 Decadron 8mg (Dexamethasone) 10:42:44 CDT 2 CPT-J0696 Rocephin 1gm Inj Solr 14:32:13 CDT CPT-J1020 Depo Medrol 60 mg (Methyl Prednisolone A cetate) 14:32:13 CDT CPT-J1100 Decadron 6mg (Dexamethasone) 14:32:13 CDT 2 CPT-52342 Hip bilat min 2V w AP pelvis 13:16:20 CDT 2 CPT-09875 Pelvis only 13:07:33 CDT CPT-66294 Spec Collection and Handling Fee 11:25:12 C DT CPT-45658 Fluzone Quadrivalent Intramuscular Suspe nsion 0.5 ML 14:31:55 CDT CPT-05539 Abx/Therapy Injection 13:28:47 SLOPE HOIST OPERATOR CPT-J2930 Solu Medrol 125 mg (Methyl Prednisolone Sodium Succinate) 12:00:47 SLOPE HOIST OPERATOR CPT-19726 Venipuncture Draw Fee 11:33:31 CDT CPT-58626 EKG Trac and Interp 11:21:09 CDT CPT-32743 Chest 2V Frontal and Lat 11:21:09 CDT 12/15 CPT-32321 Venipuncture Draw Fee 08:02:34 CDT CPT-66528 Chest 2V Frontal and Lat 05:47:59 CDT 06/05
--- OUTSIDE RECORDS SUMMARY | 2019-10-08 08:03 | XMS REPORT | Clinical Summary ---
Author Author Caitlin, Juliana Martinez Organization [facility] Address Unknown Phone Unavailable Allergies, Adverse Reactions, [...] URI 465.9 Inactive Ridge Bess DO Ac nulato upper respiratory infections of unspecified site Body [...] ICD-490 Inactive Hugo Restrepo MD 201 04/09/17 BRONCHITIS, ACUTE WITH MILD BRONCHOSPASM ICD-466.0 Inactive [...] DERMATITIS ICD-692.9 Inactive Marcy crisostomo MD PhD MAXILLARY SINUSITIS ICD-473.0 Inactive Marcy De La Rosa MD PhD SINUSITIS, ACUTE ICD-461.9 Inactive Hugo dominguez MD Bronchitis-Acute ICD-466.0 Inactive Hugo dominguez MD URI - acute ICD-465.9 Inactive Hugo Restrepo MD Sinusitis ICD-473.9 Inactive Hugo Restrepo MD Pelvic pain, acute ICD-789.09 Inactive Hugo Restrepo MD Sinusitis ICD-473.9 Inactive Hugo Restrepo MD Bronchitis ICD-490 Inactive Hugo Restrepo MD 201 10/02/29 URI ICD-465.9 Inactive Ridge Bess DO Pharyngitis acute ICD-462 Inactive Hugo gore MD Rhinitis, acute ICD-460 Inactive Hugo Ochoa MD Medication List Medication Instructions Start Date Stop Date Generic Name NDC Status Provider Patient Instruction TUSSIONEX PENNKINETIC ER 10-8 MG/5ML ORAL SUSPENSION E XTENDED RELEASE 5ml po q12hr PRN Cough HYDROCOD POLST-CHLORPHEN POLST 58870345997 Active 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 PIPE CAULKER Active PREDNISONE 20 MG ORAL TABLET Take 2 tabs day 1 and 2 and 1 t ab days 3 and 4 PREDNISONE 05568807463 No Longer Active 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 PIPE CAULKER Active DOXYCYCLINE HYCLATE 100 MG ORAL CAPSULE 1 cap by mouth twice latasha ly DOXYCYCLINE HYCLATE 80882270735 No Longer Active 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 PIPE CAULKER Active TOPAMAX 100 MG ORAL TABLET Take 1 tablet po bid TOPIRAMATE 25168384237 No Longer Active 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 PIPE CAULKER Active TUSSIONEX PENNKINETIC ER 10-8 MG/5ML ORAL SUSPENSION E XTENDED RELEASE 5ml po q12hr PRN Cough HYDROCOD POLST-CHLORPHEN POLST 5 7137909289 No Longer Active 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 PIPE CAULKER Active AUGMENTIN 875-125 MG ORAL TABLET 1 po BID x 10 days 20 18/04/16 AMOXICILLIN-POT CLAVULANATE 92115575241 No Longer Active 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 PIPE CAULKER Active PREDNISONE 50 MG ORAL TABLET Take 50 mg dialy for 6 day s 7 PREDNISONE 96659282561 No Longer Active David Lopes APRN Active TUSSIONEX PENNKINETIC ER 10-8 MG/5ML ORAL SUSPENSION E XTENDED RELEASE 5ml po q12hr PRN Cough HYDROCOD POLST-CHLORPHEN POLST 5 7178372711 No Longer Active Cherelle Torres RN Active PREDNISONE 20 MG ORAL TABLET two tabs by mouth today, then one tab by mouth days two and three and four PREDNISONE 18936858078 No Lo nger Active Cherelle Torres RN Active AZITHROMYCIN 250 MG ORAL TABLET 2 po qd x 1 day, then 1 po q d x 4 days AZITHROMYCIN 17632991799 No Longer Active Ridge Bess DO Active PREDNISONE 20 MG ORAL TABLET 2 po qd x 5 days P REDNISONE 46239460240 No Longer Active Perez Mora MD Active PROAIR HFA 108 (90 BASE) MCG/ACT INHALATION AEROSOL SO LUTION 2 puffs four times a day as needed ALBUTEROL SULFATE 88702677117 No Long er Active Becky AGUILARA Active ASPIRIN 81 MG ORAL TABLET 1 po qd ASPIRIN 90272160156 Active Carlton Hu MD Active PREDNISONE 20 MG ORAL TABLET 1 tab twice daily for 3 d ay, then one daily for three days PREDNISONE 53930918658 No Longer Active Carlton Hu MD Active AUGMENTIN 875-125 MG ORAL TABLET 1 po BID x 10 days 20 16/03/22 AMOXICILLIN-POT CLAVULANATE 07391180859 No Longer Active Elise Garcia APRN Active TERBINAFINE HCL 250 MG ORAL TABLET 1 qDay for nail fungus 7 TERBINAFINE HCL 25595288683 No Longer Active Carlton Hu MD A ctive AMOXICILLIN 500 MG ORAL CAPSULE 1 cap by mouth three times a day AMOXICILLIN 24736626624 No Longer Active Carlton Hu MD Active ELMIRON 100 MG ORAL CAPSULE 2 tablets in the am and 1 tablet at hs PENTOSAN POLYSULFATE SODIUM 06279032753 No Longer Active Robert Hu MD Active MUCINEX D 60-600 MG ORAL TABLET EXTENDED RELEASE 12 HOUR 1 t ab po q am PSEUDOEPHEDRINE-GUAIFENESIN 84894886506 No Longer Act nael Carlton Hu MD Active MUCINEX DM MAXIMUM STRENGTH 60-1200 MG ORAL TABLET EXT ENDED RELEASE 12 HOUR 1 tab po q am DEXTROMETHORPHAN-GUAIFENESIN 97073399984 No Longer Active Carlton Hu MD Active TUSSIONEX PENNKINETIC ER 10-8 MG/5ML ORAL SUSPENSION E XTENDED RELEASE 5ml po q12hr PRN Cough HYDROCOD POLST-CHLORPHEN POLST 5 4050209330 No Longer Active Carlton Hu MD Active POTASSIUM CHLORIDE ER 20 MEQ ORAL TABLET EXTENDED RELE ASE Take 1 by mouth 4 times daily for 7 days POTASSIUM CHLORIDE 44089366336 No Longer Active Carlton Hu MD Active ZITHROMAX 250 MG ORAL TABLET 2 po today, then 1 po q days 2-5 14/09/04 AZITHROMYCIN 37879248287 No Longer Active Elise Garcia APRN Active TUSSIONEX PENNKINETIC ER 10-8 MG/5ML ORAL SUSPENSION E XTENDED RELEASE 5 ml twice a day as needed for cough HYDROCOD POLST-CHLORPH EN POLST 07787296658 No Longer Active Elise Garcia APRN Active MONTELUKAST SODIUM 10 MG ORAL TABLET 1 po daily for Allergy MONTELUKAST SODIUM 65998215667 Active ALFREDO Holly Act nael TUSSIONEX PENNKINETIC ER 10-8 MG/5ML ORAL SUSPENSION E XTENDED RELEASE 5ml po q12hr PRN Cough HYDROCOD POLST-CHLORPHEN POLST 5 2712942294 No Longer Active Hugo Restrepo MD Active GABAPENTIN 100 MG ORAL CAPSULE 1 po BID for fibromyalgia GABAPENTIN 23327667789 Active Carlton Hu MD Active LYRICA 100 MG ORAL CAPSULE Take 1 tab po BID for fibromyalgia 20 11/08/21 PREGABALIN 27418903812 No Longer Active Elise Garcia APRN A ctive PREDNISONE 20 MG ORAL TABLET 2 tabs daily for 3 days, 1 tab daily for 3 days, 1/2 tab daily for 2 days PREDNISONE 51035598145 No Longer Active Venullina Cesarl PIPE CAULKER Active TUSSIONEX PENNKINETIC ER 10-8 MG/5ML ORAL SUSPENSION E XTENDED RELEASE 5 mL PO q 12 hrs PRN cough HYDROCOD POLST-CHLORPHEN POLST 588700 29664 No Longer Active Jillina Frakerriel PIPE CAULKER Active FLUTICASONE PROPIONATE 50 MCG/ACT NASAL SUSPENSION 2 s prays each nostril daily until bottle is empty FLUTICASONE PROPIONATE 027506795 99 No Longer Active Jillina Frazell PIPE CAULKER Active ASMANEX 60 METERED DOSES 220 MCG/INH INHALATION AEROSO L POWDER BREATH ACTIVATED 1 puff bid with rinse after MOMETASONE FUROATE 5133507 4102 No Longer Active Jillina Cesarl PIPE CAULKER Active ZITHROMAX Z-REYNA 250 MG ORAL TABLET 2 today, then 1 daily for 4 d ays AZITHROMYCIN 86053221191 No Longer Active Elise Garcia PIPE CAULKER Active TUSSIONEX PENNKINETIC ER 10-8 MG/5ML ORAL SUSPENSION E XTENDED RELEASE 5ml po q12hr PRN Cough HYDROCOD POLST-CHLORPHEN POLST 5 0043922007 No Longer Active Elise Garcia APRN Active PREDNISONE 20 MG ORAL TABLET 2 tabs daily for 3 days, 1 tab daily for 3 days, 1/2 tab daily for 2 days PREDNISONE 52411928451 No Longer Active Jillina Cesarl PIPE CAULKER Active AMOXICILLIN 500 MG ORAL CAPSULE 2 po BID x 10 days 201 09/29/08 AMOXICILLIN 88966489986 No Longer Active Jillina Cesarl PIPE CAULKER Act nael SINGULAIR 10 MG ORAL TABLET 1 po qday for allergies 20 14/01/12 MONTELUKAST SODIUM 35284379741 No Longer Active Carlton Hu MD Active LEVAQUIN 500 MG ORAL TABLET 1 tablet by mouth daily 13/09/24 LEVOFLOXACIN 92374592389 No Longer Active Carlton Hu MD Acti ve FLUTICASONE PROPIONATE 50 MCG/ACT NASAL SUSPENSION 2 s prays each nostril daily for 2 weeks, then 1 spray each nostril daily. FLUTICASONE PROPIONATE 29112672035 Active ALFREDO Holly Active ZITHROMAX 250 MG ORAL TABLET 2 po today, then 1 po q days 2-5 20 13/08/10 AZITHROMYCIN 19742329575 No Longer Active Elise Garcia APRN Active XANAX 0.5 MG ORAL TABLET one tablet by mouth daily prn anxiety 2015 ALPRAZOLAM 32605480113 Active ALFREDO Holly Active CYMBALTA 30 MG ORAL CAPSULE DELAYED RELEASE PARTICLES 1 cap by mouth daily for depression DULOXETINE HCL 02476718677 Active ALFREDO Holly Active CEFDINIR 300 MG ORAL CAPSULE 1 po BID x 10 days CEFDINIR 12221147096 No Longer Active Carlton Hu MD Active ZOCOR 40 MG ORAL TABLET 1 tab by mouth daily SI MVASTATIN 10311511079 No Longer Active Carlton Hu MD Active CYCLOBENZAPRINE HCL 10 MG ORAL TABLET 1 tablet by mouth BID prn had pain CYCLOBENZAPRINE HCL 11416018661 No Longer Active Jayden Hu MD Active LEVOFLOXACIN 500 MG ORAL TABLET 1 tab PO daily x 10 days LEVOFLOXACIN 82688160864 No Longer Active Carlton Hu MD Acti ve PREDNISONE 20 MG ORAL TABLET 3 tab PO qd x 2d, 2 tab P O qd x 2d, 1 tab PO qd x 2d, 1/2 tab PO qd x 2d PREDNISONE 02202869830 No Lo nger Active Carlton Hu MD Active FLUTICASONE PROPIONATE 50 MCG/ACT NASAL SUSPENSION 1 t o 2 sprays each nostril daily FLUTICASONE PROPIONATE 30247398563 No Longer Ac tive Blaine HERNANDEZ Active CHERATUSSIN AC 100-10 MG/5ML ORAL SYRUP 1 tsp by mouth every 4 hours as needed for cough GUAIFENESIN-CODEINE 66611539426 No Longe r Active Blaine HERNANDEZ Active PROMETHAZINE-CODEINE 6.25-10 MG/5ML ORAL SYRUP 1 tsp b y mouth every 6 hours if needed for cough PROMETHAZINE-CODEINE 24304556539 No Longer Active Blaine HERNANDEZ Active CHERATUSSIN AC 100-10 MG/5ML ORAL SYRUP 1 tsp by mouth every 4 hours as needed for cough GUAIFENESIN-CODEINE 48976695872 No Longe r Active Blaine HERNANDEZ Active ZITHROMAX Z-REYNA 250 MG ORAL TABLET 2 today, then 1 daily for 4 d ays AZITHROMYCIN 80928312061 No Longer Active Columba Raida Act nael ZITHROMAX 250 MG ORAL TABLET 2 po today, then 1 po q days 2-5 20 14/03/21 AZITHROMYCIN 89537446032 No Longer Active Carlton Hu MD Active ZITHROMAX Z-REYNA 250 MG ORAL TABLET 2 today, then 1 daily for 4 d ays AZITHROMYCIN 43567491875 No Longer Active Columba Raida Act nael AUGMENTIN 875-125 MG ORAL TABLET 1 po BID x 10 days 13/01/20 AMOXICILLIN-POT CLAVULANATE 19270632387 No Longer Active Diya De Guzman APRN Active ZITHROMAX 250 MG ORAL TABLET 2 po today, then 1 po q days 2-5 20 12/08/14 AZITHROMYCIN 76693289854 No Longer Active Carlton Hu MD Active TRAMADOL HCL 50 MG ORAL TABLET 1 po tid with ES Tylenol TRAMADOL HCL 30419393395 Active ALFREDO Holly Active PREMARIN 0.625 MG ORAL TABLET TAKE 1 TAB BY MOUTH DAILY ESTROGENS CONJUGATED 04533850693 No Longer Active Ridge Bess DO A ctive CYMBALTA 30 MG ORAL CAPSULE DELAYED RELEASE PARTICLES 1 cap by mouth daily DULOXETINE HCL 58758045373 No Longer Active Ridge Ya ee DO Active AMOXICILLIN 500 MG ORAL CAPSULE 1 tab by mouth 3 times daily x 10 days AMOXICILLIN 64320194249 No Longer Active Carlton bustamante MD Active AMOXICILLIN 500 MG ORAL CAPSULE 1 tab by mouth 3 times daily x 10 days AMOXICILLIN 37428099715 No Longer Active Carlton bustamante MD Active PROMETHAZINE-CODEINE 6.25-10 MG/5ML ORAL SYRUP 1 tsp b y mouth every 8 hours prn cough PROMETHAZINE-CODEINE 77761092834 No Longer Acti ve Carlton Hu MD Active MEDROL 4 MG ORAL TABLET THERAPY PACK 6 pills x 1 day, then 5 pills x 1 day then 4 pills x 1 day, then 3 pills x 1 day, then 2 pills x 1 day, then 1 pill x 1 day, then stop METHYLPREDNISOLONE 12461509526 No Long er Active Perez Mora MD Active AZITHROMYCIN 250 MG ORAL TABLET 2 po qd x 1 day, then 1 po q d x 4 days AZITHROMYCIN 77281234133 No Longer Active Perez Ambriz MD Active SYMBICORT 160-4.5 MCG/ACT INHALATION AEROSOL 2 puffs bid wit h rinse after BUDESONIDE-FORMOTEROL FUMARATE 31346130993 N o Longer Active Perez Mora MD Active LYRICA 75 MG ORAL CAPSULE TAKE 1 CAPSULE BY MOUTH TWICE DAILY PREGABALIN 28989483416 No Longer Active Carlton Hu MD Acti ve TOPAMAX 25 MG ORAL TABLET 1 qHS x 1 week, then 1 BID x 1 week, then 1 qAM and 2 qHS x 1 week, then 2 BID (migraine prevention) T OPIRAMATE 29076717127 No Longer Active Jerica FUENTES Active TOPAMAX 50 MG ORAL TABLET take 1 tab po BID for migraines. 07/02 TOPIRAMATE 12347817578 No Longer Active Jerica FUENTES Active TRIAMCINOLONE ACETONIDE 0.1 % EXTERNAL CREAM apply three roger es daily prn rash TRIAMCINOLONE ACETONIDE 14550102778 No Longer Active Carlton Hu MD Active PAXIL 40 MG ORAL TABLET take 1 tab po qday for depression 0 PAROXETINE HCL 35420860110 Active ALFREDO Holly Active CHERATUSSIN AC 100-10 MG/5ML ORAL SYRUP 5ml po q6hr PRN Cough 20 13/04/14 GUAIFENESIN-CODEINE 40974500132 No Longer Active Carlton Hu MD Active MEDROL 4 MG ORAL TABLET THERAPY PACK 6 tabs on day 1, 5 tabs on day 2, 4 tabs on day 3, 3 tabs on day 4, 2 tabs on day 5, 1 tab on day 6 2013 METHYLPREDNISOLONE 75690764671 No Longer Active Perez Mora MD Active AZITHROMYCIN 250 MG ORAL TABLET 2 po qd x 1 day, then 1 po q d x 4 days AZITHROMYCIN 70947187509 No Longer Active Perez Ambriz MD Active PROPRANOLOL HCL 60 MG ORAL TABLET 1 PO Q D PROPRANOLOL HCL 47369628659 No Longer Active Perez Mora MD Activ e CHERATUSSIN AC 100-10 MG/5ML ORAL SYRUP take one tsp po Q 6h ours prn cough GUAIFENESIN-CODEINE 51031675399 No Longer Active Zia Mora MD Active AUGMENTIN 875-125 MG ORAL TABLET 1 tab by mouth twice daily with food AMOXICILLIN-POT CLAVULANATE 71174621098 No Longer Act nael Perez Mora MD Active CHERATUSSIN AC 100-10 MG/5ML ORAL SYRUP 1 tsp by mouth every 4 hours as needed for cough GUAIFENESIN-CODEINE 02266254917 No Longe r Active Hugo Restrepo MD Active ACETAMINOPHEN-CODEINE #3 300-30 MG ORAL TABLET 1 PO Q 4-6 HRS OK N PAIN ACETAMINOPHEN-CODEINE 74685986467 No Longer Active Hugo Restrepo MD Active LEVAQUIN 500 MG ORAL TABLET take one po QD LEVO FLOXACIN 08327281256 No Longer Active Griffin HERNANDEZ Active PREDNISONE 20 MG ORAL TABLET Take 3 tabs daily for 3 d ays, 2 tabs daily for 3 days, 1 tab daily for 3 days, 1/2 tab daily for 3 days 11/07 PREDNISONE 42844373122 No Longer Active Carlton Hu MD Acti ve AVELOX 400 MG ORAL TABLET 1 tab by mouth daily MOXIFLOXACIN HCL 45510634419 No Longer Active Carlton Hu MD Active CHERATUSSIN AC 100-10 MG/5ML ORAL SYRUP 1 tsp by mouth every 4 hours as needed for cough GUAIFENESIN-CODEINE 35069979592 No Longe r Active Hugo Restrepo MD Active AVELOX 400 MG ORAL TABLET 1 tab by mouth daily MOXIFLOXACIN HCL 82827401790 No Longer Active Marcy De La Rosa MD PhD Active TERBINAFINE HCL 250 MG ORAL TABLET 1 qDay T ERBINAFINE HCL 41332645150 No Longer Active Marcy De La Rosa MD PhD Active CHERATUSSIN AC 100-10 MG/5ML ORAL SYRUP 1 tsp by mouth every 4 hours as needed for cough GUAIFENESIN-CODEINE 79674742220 No Longe r Active Marcy De La Rosa MD PhD Active AVELOX 400 MG ORAL TABLET 1 tab by mouth daily MOXIFLOXACIN HCL 28999274305 No Longer Active Marcy De La Rosa MD PhD Active HYDROCODONE-ACETAMINOPHEN 5-325 MG ORAL TABLET 1 po q 6hr PRN co ugh HYDROCODONE-ACETAMINOPHEN 97128338143 No Longer Active Marcy De La Rosa MD PhD Active PREDNISONE 20 MG ORAL TABLET 2 tabs daily for 3 days, 1 tab daily for 3 days, 1/2 tab daily for 2 days PREDNISONE 03635877771 No Longer Active Carlton Hu MD Active CEFDINIR 300 MG ORAL CAPSULE by mouth twice a day 2011 CEFDINIR 93694375383 No Longer Active Carlton Hu MD Acti ve HYDROCHLOROTHIAZIDE 25 MG ORAL TABLET 1 TAB PO DAILY HYDROCHLOROTHIAZIDE 20241734909 Active ALFREDO Holly Ac tive ACETAMINOPHEN-CODEINE #3 300-30 MG ORAL TABLET 1 tablet po q 4-6 hrs prn pain ACETAMINOPHEN-CODEINE 25716219031 No Longer Active Ridge Bess DO Active ZITHROMAX 250 MG ORAL TABLET 2 po today, then 1 po q days 2-5 20 03/07/07 AZITHROMYCIN 81809039530 No Longer Active Carlton Hu MD Active CHERATUSSIN AC 100-10 MG/5ML ORAL SYRUP take 1 tsp po q4-6 h ours prn cough GUAIFENESIN-CODEINE 47379743150 No Longer Active Jayden Hu MD Active ACETAMINOPHEN-CODEINE #3 300-30 MG ORAL TABLET 1 PO Q 4-6 HR PRN PAIN ACETAMINOPHEN-CODEINE 74165591181 No Longer Active Da raimundo Hu MD Active LORTAB 7.5-500 MG/15ML ORAL ELIXIR 7.5 ml po q 4 hour prn cough HYDROCODONE-ACETAMINOPHEN 86187270143 No Longer Active Carlton Hu MD Active PREDNISONE 20 MG ORAL TABLET 1 po bid 3 days, then 1 po q day 3 days PREDNISONE 44429194044 No Longer Active Carlton Hu MD Active CEFDINIR 300 MG ORAL CAPSULE by mouth twice a day 2011 CEFDINIR 38635496969 No Longer Active Carlton Hu MD Acti ve CEFDINIR 300 MG ORAL CAPSULE by mouth twice a day 2010 CEFDINIR 48694527814 No Longer Active Carlton Hu MD Acti ve CEFDINIR 300 MG ORAL CAPSULE by mouth twice a day 2010 CEFDINIR 01186381029 No Longer Active Carlton Hu MD Acti ve TESSALON PERLES 100 MG ORAL CAPSULE 1 tablet by mouth 3 times daily as needed for cough BENZONATATE 25182398070 No Longer Active Carlton Hu MD Active CEFDINIR 300 MG ORAL CAPSULE by mouth twice a day 2010 CEFDINIR 54390825225 No Longer Active Carlton Hu MD Acti ve ZITHROMAX Z-REYNA 250 MG ORAL TABLET 2 today, then 1 daily for 4 d ays AZITHROMYCIN 19524581382 No Longer Active Hugo Restrepo MD Active TESSALON PERLES 100 MG ORAL CAPSULE 1 tablet by mouth 3 times daily as needed for cough TESSALON PERLES 100 MG ORAL CAPSULE 53766 7 BENZONATATE Inactive PREDNISONE 20 MG ORAL TABLET 1 po bid 3 days, then 1 po q day 3 days PREDNISONE 20 MG ORAL TABLET 467050 PREDNISONE Dunn ctive LORTAB 7.5-500 MG/15ML ORAL ELIXIR 7.5 [...] cough CHERATUSSIN AC 100-10 MG/5ML ORAL SYRUP 481879 GUAIFENESIN-CODEINE Inactive ACETAMINOPHEN-CODEINE #3 300-30 MG ORAL TABLET 1 tablet po q 4-6 hrs prn pain ACETAMINOPHEN-CODEINE #3 300-30 MG ORAL TABLET ACETAMINOPHEN-CODEINE Inactive HYDROCODONE-ACETAMINOPHEN 5-325 MG ORAL TABLET 1 po q 6hr PRN co ugh HYDROCODONE-ACETAMINOPHEN 5-325 MG ORAL TABLET 301423 HYDROCODONE-ACETAMINOPHEN Inactive AVELOX 400 MG ORAL TABLET 1 tab by mouth daily AVELOX 400 MG ORAL TABLET 960596 MOXIFLOXACIN HCL Inactive CHERATUSSIN AC 100-10 MG/5ML ORAL SYRUP 1 tsp by mouth every 4 hours as needed for cough CHERATUSSIN AC 100-10 MG/5ML ORAL SYRUP 9 66157 GUAIFENESIN-CODEINE Inactive TERBINAFINE HCL 250 MG ORAL TABLET 1 qDay 07/08 TERBINAFINE HCL 250 MG ORAL TABLET 186882 TERBINAFINE HCL Inactive CHERATUSSIN AC 100-10 MG/5ML ORAL SYRUP 1 tsp by mouth every 4 hours as needed for cough CHERATUSSIN AC 100-10 MG/5ML ORAL SYRUP 9 05306 GUAIFENESIN-CODEINE Inactive ACETAMINOPHEN-CODEINE #3 300-30 MG ORAL TABLET 1 PO Q 4-6 HRS OK N PAIN ACETAMINOPHEN-CODEINE #3 300-30 MG ORAL TABLET ACETAMINOPHEN-CODEINE Inactive CHERATUSSIN AC 100-10 MG/5ML ORAL SYRUP 1 tsp by mouth every 4 hours as needed for cough CHERATUSSIN AC 100-10 MG/5ML ORAL SYRUP 9 69629 GUAIFENESIN-CODEINE Inactive AUGMENTIN 875-125 MG ORAL TABLET 1 tab by mouth twice daily with food AUGMENTIN 875-125 MG ORAL TABLET 879536 AMOXICIL MADELINE-POT CLAVULANATE Inactive CHERATUSSIN AC 100-10 MG/5ML ORAL SYRUP take one tsp po Q 6h ours prn cough CHERATUSSIN AC 100-10 MG/5ML ORAL SYRUP 779303 GUAIFENESIN-CODEINE Inactive PROPRANOLOL HCL 60 MG ORAL TABLET 1 PO Q D PROPRANOLOL HCL 60 MG ORAL TABLET 335772 PROPRANOLOL HCL Inactive TOPAMAX 50 MG ORAL TABLET take 1 tab po BID for migraines. 07/02 TOPAMAX 50 MG ORAL TABLET 750839 TOPIRAMATE Inacti ve TOPAMAX 25 MG ORAL TABLET 1 qHS x 1 week, then 1 BID x 1 week, then 1 qAM and 2 qHS x 1 week, then 2 BID (migraine prevention) TOPAMAX 25 MG ORAL TABLET 250606 TOPIRAMATE Inactive LYRICA 75 MG ORAL CAPSULE TAKE 1 CAPSULE BY MOUTH TWICE DAILY LYRICA 75 MG ORAL CAPSULE PREGABALIN Inactive SYMBICORT 160-4.5 MCG/ACT INHALATION AEROSOL 2 puffs bid wit h rinse after SYMBICORT 160-4.5 MCG/ACT INHALATION AEROSOL BUDESONIDE- FORMOTEROL FUMARATE Inactive PROMETHAZINE-CODEINE 6.25-10 MG/5ML ORAL SYRUP 1 tsp b y mouth every 8 hours prn cough PROMETHAZINE-CODEINE 6.25-10 MG/ 5ML ORAL SYRUP 883992 PROMETHAZINE-CODEINE Inactive CYMBALTA 30 MG ORAL CAPSULE DELAYED RELEASE PARTICLES 1 cap by mouth daily CYMBALTA 30 MG ORAL CAPSULE DELAYED RELE ASE PARTICLES 691676 DULOXETINE HCL Inactive PREMARIN 0.625 MG ORAL TABLET TAKE 1 TAB BY MOUTH DAILY PREMARIN 0.625 MG ORAL TABLET ESTROGENS CONJUGATED Inactive CHERATUSSIN AC 100-10 MG/5ML ORAL SYRUP 1 tsp by mouth every 4 hours as needed for cough CHERATUSSIN AC 100-10 MG/5ML ORAL SYRUP 9 22269 GUAIFENESIN-CODEINE Inactive PROMETHAZINE-CODEINE 6.25-10 MG/5ML ORAL SYRUP 1 tsp b y mouth every 6 hours if needed for cough PROMETHAZINE-CODEINE 6.25-10 MG/5ML ORAL SYRUP 921769 PROMETHAZINE-CODEINE Inactive CHERATUSSIN AC 100-10 MG/5ML ORAL SYRUP 1 tsp by mouth every 4 hours as needed for cough CHERATUSSIN AC 100-10 MG/5ML ORAL SYRUP 9 80550 GUAIFENESIN-CODEINE Inactive FLUTICASONE PROPIONATE 50 MCG/ACT NASAL SUSPENSION 1 t o 2 sprays each nostril daily FLUTICASONE PROPIONATE 50 MCG/AC T NASAL SUSPENSION 6253890 FLUTICASONE PROPIONATE Inactive PREDNISONE 20 MG ORAL TABLET 3 tab PO qd x 2d, 2 tab P O qd x 2d, 1 tab PO qd x 2d, 1/2 tab PO qd x 2d PREDNISONE 20 MG ORAL TAB LET 093191 PREDNISONE Inactive LEVOFLOXACIN 500 MG ORAL TABLET 1 tab PO daily x 10 days LEVOFLOXACIN 500 MG ORAL TABLET 123435 LEVOFLOXACIN Inactive CYCLOBENZAPRINE HCL 10 MG ORAL TABLET 1 tablet by mouth BID prn had pain CYCLOBENZAPRINE HCL 10 MG ORAL TABLET 910763 CYCLOBENZAPRINE HCL Inactive ZOCOR 40 MG ORAL TABLET 1 tab by mouth daily 4 ZOCOR 40 MG ORAL TABLET 825737 SIMVASTATIN Inactive TUSSIONEX PENNKINETIC ER 10-8 MG/5ML [...] FLUTICASONE PROPIO EFE 50 MCG/ACT NASAL SUSPENSION 2838007 FLUTICASONE PROPIONATE Inactive TUSSIONEX PENNKINETIC ER 10-8 [...] three days PREDNISONE 20 MG ORAL TABLET 302253 PREDNIS ONE Inactive PROAIR HFA 108 (90 BASE) MCG/ACT INHALATION AEROSOL SO LUTION 2 puffs four times a day as needed PROAIR HFA 108 (90 B ASE) MCG/ACT INHALATION AEROSOL SOLUTION ALBUTEROL SULFATE Inactive PREDNISONE 20 MG ORAL TABLET two tabs by mouth today, then one tab by mouth days two and three and four PREDNISONE 20 MG ORAL TAB LET 536673 PREDNISONE Inactive TUSSIONEX PENNKINETIC ER 10-8 MG/5ML [...] bid 04/20 TOPAMAX 100 MG ORAL TABLET 935794 TOPIRAMATE Inactive ZITHROMAX Z-REYNA 250 MG ORAL TABLET 2 today, then 1 daily for 4 d ays ZITHROMAX Z-REYNA 250 MG ORAL TABLET 250859 AZITHROMYCIN Inactive CEFDINIR 300 MG ORAL CAPSULE [...] 20 03/07/07 ZITHROMAX 250 MG ORAL TABLET 017405 AZITHROMYCIN Dunn ctive CEFDINIR 300 MG ORAL CAPSULE by mouth twice a day 2011 CEFDINIR 300 MG ORAL CAPSULE 117476 CEFDINIR Inactive PREDNISONE 20 MG ORAL TABLET 2 tabs daily for 3 days, 1 tab daily for 3 days, 1/2 tab daily for 2 days PREDNISONE 20 MG ORAL T ABLET 926417 PREDNISONE Inactive AVELOX 400 MG ORAL TABLET 1 tab by mouth daily AVELOX 400 MG ORAL TABLET 550974 MOXIFLOXACIN HCL Inactive AVELOX 400 MG ORAL TABLET 1 tab by mouth daily AVELOX 400 MG ORAL TABLET 864713 MOXIFLOXACIN HCL Inactive PREDNISONE 20 MG ORAL TABLET Take 3 tabs daily for 3 d ays, 2 tabs daily for 3 days, 1 tab daily for 3 days, 1/2 tab daily for 3 days 11/07 PREDNISONE 20 MG ORAL TABLET 017665 PREDNISONE Inactive LEVAQUIN 500 MG ORAL TABLET take one po QD LEVAQUIN 500 MG ORAL TABLET 685341 LEVOFLOXACIN Inactive AZITHROMYCIN 250 MG ORAL TABLET 2 po qd x 1 day, then 1 po q d x 4 days AZITHROMYCIN 250 MG ORAL TABLET 190879 AZITHROMY GIOVANNI Inactive MEDROL 4 MG ORAL TABLET THERAPY PACK 6 tabs on day 1, 5 tabs on day 2, 4 tabs on day 3, 3 tabs on day 4, 2 tabs on day 5, 1 tab on day 6 2013 MEDROL 4 MG ORAL TABLET THERAPY PACK 526848 METHYLPREDNISOLONE Greer ctive CHERATUSSIN AC 100-10 MG/5ML ORAL SYRUP 5ml po q6hr PRN Cough 20 13/04/14 CHERATUSSIN AC 100-10 MG/5ML ORAL SYRUP 679986 GUAIFENE SIN-CODEINE Inactive TRIAMCINOLONE ACETONIDE 0.1 % EXTERNAL CREAM apply three roger es daily prn rash TRIAMCINOLONE ACETONIDE 0.1 % EXTERNAL CREAM 101 4314 TRIAMCINOLONE ACETONIDE Inactive AZITHROMYCIN 250 MG ORAL TABLET 2 po qd x 1 day, then 1 po q d x 4 days AZITHROMYCIN 250 MG ORAL TABLET 508949 AZITHROMY GIOVANNI Inactive MEDROL 4 MG ORAL TABLET THERAPY PACK 6 pills x 1 day, then 5 pills x 1 day then 4 pills x 1 day, then 3 pills x 1 day, then 2 pills x 1 day, then 1 pill x 1 day, then stop MEDROL 4 MG ORAL TABLET THERAPY PACK [id number] METHYLPREDNISOLONE Inactive AMOXICILLIN 500 MG ORAL CAPSULE 1 tab by mouth 3 times daily x 10 days AMOXICILLIN 500 MG ORAL CAPSULE 383941 AMOXICILL IN Inactive AMOXICILLIN 500 MG ORAL CAPSULE 1 tab by mouth 3 times daily x 10 days AMOXICILLIN 500 MG ORAL CAPSULE 311801 AMOXICILL IN Inactive ZITHROMAX 250 MG ORAL TABLET 2 po today, then 1 po q days 2-5 20 12/08/14 ZITHROMAX 250 MG ORAL TABLET 568813 AZITHROMYCIN Greer ctive AUGMENTIN 875-125 MG ORAL TABLET 1 po BID x 10 days 20 13/01/20 AUGMENTIN 875-125 MG ORAL TABLET 251944 AMOXICILLIN-POT CLAVULANATE Inactive ZITHROMAX Z-REYNA 250 MG ORAL TABLET 2 today, then 1 daily for 4 d ays ZITHROMAX Z-REYNA 250 MG ORAL TABLET 266623 AZITHROMYCIN Inactive ZITHROMAX 250 MG ORAL TABLET 2 po today, then 1 po q days 2-5 20 14/03/21 ZITHROMAX 250 MG ORAL TABLET 026802 AZITHROMYCIN [place] ctive ZITHROMAX Z-REYNA 250 MG ORAL TABLET 2 today, then 1 daily for 4 d ays ZITHROMAX Z-REYNA 250 MG ORAL TABLET 275150 AZITHROMYCIN Inactive CEFDINIR 300 MG ORAL CAPSULE 1 po BID x 10 days 06/21 CEFDINIR 300 MG ORAL CAPSULE 856409 CEFDINIR Inactive ZITHROMAX 250 MG ORAL TABLET 2 po today, then 1 po q days 2-5 20 13/08/10 ZITHROMAX 250 MG ORAL TABLET 026305 AZITHROMYCIN Greer ctive LEVAQUIN 500 MG ORAL TABLET 1 tablet by mouth daily 13/09/24 LEVAQUIN 500 MG ORAL TABLET 147892 LEVOFLOXACIN Inactive SINGULAIR 10 MG ORAL TABLET 1 po qday for allergies 20 14/01/12 SINGULAIR 10 MG ORAL TABLET 934861 MONTELUKAST SODIUM Inactive AMOXICILLIN 500 MG ORAL CAPSULE 2 po BID x 10 days 201 09/29/08 AMOXICILLIN 500 MG ORAL CAPSULE 635767 AMOXICILLIN Inactive PREDNISONE 20 MG ORAL TABLET 2 tabs daily for 3 days, 1 tab daily for 3 days, 1/2 tab daily for 2 days PREDNISONE 20 MG ORAL T ABLET 617604 PREDNISONE Inactive ZITHROMAX Z-REYNA 250 MG ORAL TABLET 2 today, then 1 daily for 4 d ays ZITHROMAX Z-REYNA 250 MG ORAL TABLET 004370 AZITHROMYCIN Inactive PREDNISONE 20 MG ORAL TABLET 2 tabs daily for 3 days, 1 tab daily for 3 days, 1/2 tab daily for 2 days PREDNISONE 20 MG ORAL T ABLET 478972 PREDNISONE Inactive ZITHROMAX 250 MG ORAL TABLET 2 po today, then 1 po q days 2-5 20 14/09/04 ZITHROMAX 250 MG ORAL TABLET 226935 AZITHROMYCIN Dunn ctive AMOXICILLIN 500 MG ORAL CAPSULE 1 cap by mouth three times a day AMOXICILLIN 500 MG ORAL CAPSULE 562165 AMOXICILLIN Inactive TERBINAFINE HCL 250 MG ORAL TABLET 1 qDay for nail fungus 7 TERBINAFINE HCL 250 MG ORAL TABLET 838642 TERBINAFINE HCL Inact nael AUGMENTIN 875-125 MG ORAL TABLET 1 po BID x 10 days 16/03/22 AUGMENTIN 875-125 MG ORAL TABLET 649955 AMOXICILLIN-POT CLAVULANATE Inactive PREDNISONE 20 MG ORAL TABLET 2 po qd x 5 days PREDNISONE 20 MG ORAL TABLET 392230 PREDNISONE Inactive AZITHROMYCIN 250 MG ORAL TABLET 2 po qd x 1 day, then 1 po q d x 4 days AZITHROMYCIN 250 MG ORAL TABLET 215181 AZITHROMY GIOVANNI Inactive PREDNISONE 50 MG ORAL TABLET Take 50 mg dialy for 6 day s 7 PREDNISONE 50 MG ORAL TABLET 710571 PREDNISONE Inactive AUGMENTIN 875-125 MG ORAL TABLET 1 po BID x 10 days 20 18/04/16 AUGMENTIN 875-125 MG ORAL TABLET 523177 AMOXICILLIN-POT CLAVULANATE Inactive DOXYCYCLINE HYCLATE 100 MG ORAL CAPSULE 1 cap by mouth twice latasha ly DOXYCYCLINE HYCLATE 100 MG ORAL CAPSULE 3017020 DOXYCYCL INE HYCLATE Inactive PREDNISONE 20 MG ORAL TABLET Take 2 tabs day 1 and 2 and 1 t ab days 3 and 4 PREDNISONE 20 MG ORAL TABLET 459230 PREDNISONE Inactive Vital Signs Date Name Value [...] mg/dL 7-18 creatinine, serum 0.96 mg/dL 0.60-1.30 blood glucose 101 mg/dL 65-110 carbon dioxide, venous blood 30.3 mmol/L 21.0-32 .0 chloride, serum 100 mmol/L 98-107 potassium, serum 3.6 mmol/L 3.5-5.2 sodium, serum 139 mmol/L 439-244 5957/10/12 sodium, serum 139 mmol/L 975-924 6688/10/12 urea nitrogen, blood 10 mg/dL 7-18 creatinine, serum 0.97 mg/dL 0.60-1.30 Estimated Glomerular Filtration Rate (calc) 62 (?) mL/min/1.73m2 = OR > 60 mL/min potassium, serum 3.8 mmol/L 3.5-5.2 chloride, serum 102 mmol/L 98-107 carbon dioxide, venous blood 29.4 mmol/L 21.0-32 .0 blood glucose 103 mg/dL 65-95 calcium, serum 8.8 mg/dL 8.5-10.1 Encounters Code Encounter Date Provider Facility CPT-59785 Level 3 Est. Patient 09:46:49 [employer] David lion [facility]-43304 14390-Kne Vst-Est Level III 11:12:16 CDT Yanet Bess DO [facility] CPT-82072 Level 3 Est. Patient 11:34:49 [employer] Perez Mora MD [facility] CPT-36324 Level 4 Est. Patient 09:51:32 [employer] Carlton rich MD [facility]-79311 Level 3 Est. Patient 10:26:00 [employer] Elise Are [facility] CPT-25377 Level 3 Est. Patient 13:35:41 [employer] Carlton rich MD [facility]-39872 Level 3 Est. Patient 10:03:52 [employer] Carlton rich MD [facility] CPT-18768 Level 3 Est. Patient 12:17:50 CDT Hugo Restrepo MD [facility]-51175 Level 3 Est. Patient 13:42:38 CDT Elise Are [facility] CPT-00077 Level 3 Est. Patient 13:23:51 CDT Diya cobian [facility]-91248 Level 3 Est. Patient 14:22:19 [employer] Diya cobian [facility] CPT-33350 Level 3 Est. Patient 10:11:46 CDT Carlton rich MD [facility]-44755 Level 3 Est. Patient 17:29:43 CDT Elise Are [facility] CPT-70621 Level 3 Est. Patient 11:58:06 CDT Elise Are [facility] CPT-72379 Level 4 Est. Patient 14:36:51 CDT Carlton rich MD [facility]-18589 Level 3 Est. Patient 18:16:00 [employer] Blaine Freeman [facility]-20772 Level 3 Est. Patient 09:45:49 [employer] Carlton rich MD [facility]-06154 Level 3 Est. Patient 13:19:20 CDT Carlton rich MD [facility]-63188 Level 3 Est. Patient 13:06:43 CDT Ridge tam DO [facility]-76807 Level 3 Est. Patient 10:03:07 CDT Perez Mora MD [facility]-76038 Level 3 Est. Patient 19:50:35 [employer] Carlton rich MD [facility]-13474 Level 4 Est. Patient 18:05:01 [employer] Carlton rich MD [facility] CPT-89398 Level 3 Est. Patient 10:45:55 [employer] Hugo Restrepo MD [facility]-98488 Level 3 Est. Patient 14:12:49 CDT Griffin lincoln [facility] [place]-46186 Level 3 Est. Patient 17:37:24 CDT Carlton rich MD [facility]-01986 Level 3 Est. Patient 16:51:54 CDT Carlton rich MD [facility]-96346 Level 3 Est. Patient 12:18:11 CDT Hugo Restrepo MD [facility]-89127 Level 3 Est. Patient 11:30:25 CDT Marcy crisostomo MD PhD [facility]-68601 Level 3 Est. Patient 12:00:47 [employer] Carlton rich MD [facility] CPT-06058 Level 3 Est. Patient 16:31:06 [employer] Carlton rich MD [facility] CPT-03314 Level 3 Est. Patient 16:23:24 [employer]IST[employer] Ridge tam [facility] CPT-41019 Level 3 Est. Patient 12:34:12 CDT Carlton rich MD [facility] CPT-65446 Level 2 Est. Patient 15:43:33 CDT Robi armstrong MD [facility] CPT-93837 Level 4 Est. Patient 14:04:44 CDT Carlton rich MD [facility] CPT-40053 Level 3 Est. Patient 05:47:59 CDT Ridge tam [facility] CPT-37517 Level 3 Est. Patient 13:12:53 [employer] Carlton rich MD [facility] CPT-56065 Level 3 Est. Patient 14:26:53 CDT Hugo Restrepo MD [facility] Procedures Code Procedure Name Date Entry Date Standard Desc ription CPT-000 Give Appropriate Flu Vaccine 14:14:31 CDT CPT-J1040 Depo Medrol 80 mg (Methyl Prednisolone A cetate) 10:42:44 CDT CPT-J1100 Decadron 8mg (Dexamethasone) 10:42:44 CDT 2 CPT-J0696 Rocephin 1gm Inj Solr 14:32:13 CDT CPT-J1020 Depo Medrol 60 mg (Methyl Prednisolone A cetate) 14:32:13 CDT CPT-J1100 Decadron 6mg (Dexamethasone) 14:32:13 CDT 2 CPT-60341 Hip bilat min 2V w AP pelvis 13:16:20 CDT 2 CPT-76363 Pelvis only 13:07:33 CDT CPT-36434 Spec Collection and Handling Fee 11:25:12 C DT CPT-11726 Fluzone Quadrivalent Intramuscular Suspe nsion 0.5 ML 14:31:55 CDT CPT-09505 Abx/Therapy Injection 13:28:47 [employer] CPT-J2930 Solu Medrol 125 mg (Methyl Prednisolone Sodium Succinate) 12:00:47 [employer] CPT-11134 Venipuncture Draw Fee 11:33:31 CDT CPT-12747 EKG Trac and Interp 11:21:09 CDT CPT-56408 Chest 2V Frontal and Lat 11:21:09 CDT 12/15 CPT-03072 Venipuncture Draw Fee 08:02:34 CDT CPT-21694 Chest 2V Frontal and Lat 05:47:59 CDT 06/05
--- OUTSIDE RECORDS SUMMARY | 2019-10-08 08:04 | XMS REPORT | Clinical Summary ---
Author Author Caitlin, Juliana Martinez Organization [employer] [facility] Address Unknown Phone Unavailable Allergies, Adverse Reactions, Alerts Allergy Name Reaction Description Start Date Severity Status Pr ovider No Known Allergies Becky AGUILARA Conditions or Problems Problem Name Problem Code [...] OF DEFINED SUBPOPULATION V70.5 Act nael Monika Brayden Health examination of defined subpopulat ions Hip [...] Carlton Means Other and unspecified angina pectoris BRONCHITIS ICD-490 Inactive Hugo Restrepo MD 201 [...] ICD-490 Inactive Hugo Restrepo MD 201 10/02/29 Medication List Medication Instructions Start Date Stop Date Generic Name NDC Status Provider Patient Instruction PREDNISONE 20 MG ORAL TABLET 2 po qd x 5 days P REDNISONE [id number] No Longer Active Perez Mora MD Active PROAIR HFA 108 (90 BASE) MCG/ACT INHALATION AEROSOL SO LUTION 2 puffs four times a day as needed ALBUTEROL SULFATE 80161017060 No Long er Active Becky FUENTES Active ASPIRIN 81 MG ORAL TABLET 1 po qd ASPIRIN 61686393465 Active Carlton Hu MD Active PREDNISONE 20 MG ORAL TABLET 1 tab twice daily for 3 d ay, then one daily for three days PREDNISONE 38489624263 No Longer Active Carlton Hu MD Active AUGMENTIN 875-125 MG ORAL TABLET 1 po BID x 10 days 16/03/22 AMOXICILLIN-POT CLAVULANATE 85382673117 No Longer Active Elise Garcia APRN Active TERBINAFINE HCL 250 MG ORAL TABLET 1 qDay for nail fungus 7 TERBINAFINE HCL 14531683253 No Longer Active Carlton Hu MD A ctive TUSSIONEX PENNKINETIC ER 10-8 MG/5ML ORAL SUSPENSION E XTENDED RELEASE 5ml po q12hr PRN Cough HYDROCOD POLST-CHLORPHEN POLST 80868957662 Active Carlton Hu MD Active AMOXICILLIN 500 MG ORAL CAPSULE 1 cap by mouth three times a day AMOXICILLIN 01611152735 No Longer Active Carlton Hu MD Active ELMIRON 100 MG ORAL CAPSULE 2 tablets in the am and 1 tablet at hs PENTOSAN POLYSULFATE SODIUM 05760435573 No Longer Active Robert Hu MD Active MUCINEX D 60-600 MG ORAL TABLET EXTENDED RELEASE 12 HOUR 1 t ab po q am PSEUDOEPHEDRINE-GUAIFENESIN 97049934175 No Longer Act nael Carlton Hu MD Active MUCINEX DM MAXIMUM STRENGTH 60-1200 MG ORAL TABLET EXT ENDED RELEASE 12 HOUR 1 tab po q am DEXTROMETHORPHAN-GUAIFENESIN 12129620892 No Longer Active Carlton Hu MD Active TUSSIONEX PENNKINETIC ER 10-8 MG/5ML ORAL SUSPENSION E XTENDED RELEASE 5ml po q12hr PRN Cough HYDROCOD POLST-CHLORPHEN POLST 5 7970878462 No Longer Active Carlton Hu MD Active POTASSIUM CHLORIDE ER 20 MEQ ORAL TABLET EXTENDED RELE ASE Take 1 by mouth 4 times daily for 7 days POTASSIUM CHLORIDE 46777301597 No Longer Active Carlton Hu MD Active ZITHROMAX 250 MG ORAL TABLET 2 po today, then 1 po q days 2-5 20 14/09/04 AZITHROMYCIN 84309626953 No Longer Active Elise Garcia APRN Active TUSSIONEX PENNKINETIC ER 10-8 MG/5ML ORAL SUSPENSION E XTENDED RELEASE 5 ml twice a day as needed for cough HYDROCOD POLST-CHLORPH EN POLST 17873710310 No Longer Active Elise Garcia APRN Active MONTELUKAST SODIUM 10 MG ORAL TABLET 1 po daily for Allergy MONTELUKAST SODIUM 77844651978 Active Carlton Hu MD Ac tive TUSSIONEX PENNKINETIC ER 10-8 MG/5ML ORAL SUSPENSION E XTENDED RELEASE 5ml po q12hr PRN Cough HYDROCOD POLST-CHLORPHEN POLST 5 3095567212 No Longer Active Hugo Restrepo MD Active GABAPENTIN 100 MG ORAL CAPSULE 1 po BID for fibromyalgia GABAPENTIN 04912085275 Active Carltno Hu MD Active LYRICA 100 MG ORAL CAPSULE Take 1 tab po BID for fibromyalgia 20 11/08/21 PREGABALIN 08108916471 No Longer Active Elise Garcia APRN A ctive PREDNISONE 20 MG ORAL TABLET 2 tabs daily for 3 days, 1 tab daily for 3 days, 1/2 tab daily for 2 days PREDNISONE 15088425690 No Longer Active Diya De Guzman APRN Active TUSSIONEX PENNKINETIC ER 10-8 MG/5ML ORAL SUSPENSION E XTENDED RELEASE 5 mL PO q 12 hrs PRN cough HYDROCOD POLST-CHLORPHEN POLST 661599 13874 No Longer Active Jillina Gege RICEN Active FLUTICASONE PROPIONATE 50 MCG/ACT NASAL SUSPENSION 2 s prays each nostril daily until bottle is empty FLUTICASONE PROPIONATE 108792093 99 No Longer Active Diya De Guzman APRN Active ASMANEX 60 METERED DOSES 220 MCG/INH INHALATION AEROSO L POWDER BREATH ACTIVATED 1 puff bid with rinse after MOMETASONE FUROATE 1180685 4102 No Longer Active Diya De Guzman APRN Active ZITHROMAX Z-REYNA 250 MG ORAL TABLET 2 today, then 1 daily for 4 d ays AZITHROMYCIN 69560159354 No Longer Active Elise Garcia APRN Active TUSSIONEX PENNKINETIC ER 10-8 MG/5ML ORAL SUSPENSION E XTENDED RELEASE 5ml po q12hr PRN Cough HYDROCOD POLST-CHLORPHEN POLST 5 5039094576 No Longer Active Elise Garcia APRN Active PREDNISONE 20 MG ORAL TABLET 2 tabs daily for 3 days, 1 tab daily for 3 days, 1/2 tab daily for 2 days PREDNISONE 10192328483 No Longer Active Diya De Guzman APRN Active AMOXICILLIN 500 MG ORAL CAPSULE 2 po BID x 10 days 201 09/29/08 AMOXICILLIN 36432161642 No Longer Active Diya De Guzman APRN Act nael SINGULAIR 10 MG ORAL TABLET 1 po qday for allergies 20 14/01/12 MONTELUKAST SODIUM 94993187055 No Longer Active Carlton Hu MD Active LEVAQUIN 500 MG ORAL TABLET 1 tablet by mouth daily 20 13/09/24 LEVOFLOXACIN 88808710477 No Longer Active Carlton Hu MD Acti ve FLUTICASONE PROPIONATE 50 MCG/ACT NASAL SUSPENSION 2 s prays each nostril daily for 2 weeks, then 1 spray each nostril daily. FLUTICASONE PROPIONATE 06153237693 Active Elise Garcia APRN Active ZITHROMAX 250 MG ORAL TABLET 2 po today, then 1 po q days 2-5 20 13/08/10 AZITHROMYCIN 65004106991 No Longer Active Elise Garcia APRN Active XANAX 0.5 MG ORAL TABLET one tablet by mouth daily prn anxiety 2015 ALPRAZOLAM 66640235650 Active Carlton Hu MD Active CYMBALTA 30 MG ORAL CAPSULE DELAYED RELEASE PARTICLES 1 cap by mouth daily for depression DULOXETINE HCL 24448543715 Active Carlotn beltrán MD Active CEFDINIR 300 MG ORAL CAPSULE 1 po BID x 10 days CEFDINIR 80666391738 No Longer Active Carlton Hu MD Active ZOCOR 40 MG ORAL TABLET 1 tab by mouth daily SI MVASTATIN 37868349492 No Longer Active Carlton Hu MD Active CYCLOBENZAPRINE HCL 10 MG ORAL TABLET 1 tablet by mouth BID prn had pain CYCLOBENZAPRINE HCL 91287580687 No Longer Active Jayden Hu MD Active LEVOFLOXACIN 500 MG ORAL TABLET 1 tab PO daily x 10 days LEVOFLOXACIN 84485799077 No Longer Active Carlton Hu MD Acti ve PREDNISONE 20 MG ORAL TABLET 3 tab PO qd x 2d, 2 tab P O qd x 2d, 1 tab PO qd x 2d, 1/2 tab PO qd x 2d PREDNISONE 71436592930 No Lo nger Active Carlton Hu MD Active FLUTICASONE PROPIONATE 50 MCG/ACT NASAL SUSPENSION 1 t o 2 sprays each nostril daily FLUTICASONE PROPIONATE 04502550727 No Longer Ac tive Blaine HERNANDEZ Active CHERATUSSIN AC 100-10 MG/5ML ORAL SYRUP 1 tsp by mouth every 4 hours as needed for cough GUAIFENESIN-CODEINE 96532983306 No Longe r Active Blaine HERNANDEZ Active PROMETHAZINE-CODEINE 6.25-10 MG/5ML ORAL SYRUP 1 tsp b y mouth every 6 hours if needed for cough PROMETHAZINE-CODEINE 09930071144 No Longer Active Blaine HERNANDEZ Active CHERATUSSIN AC 100-10 MG/5ML ORAL SYRUP 1 tsp by mouth every 4 hours as needed for cough GUAIFENESIN-CODEINE 68133236978 No Longe r Active Blaine HERNANDEZ Active ZITHROMAX Z-REYNA 250 MG ORAL TABLET 2 today, then 1 daily for 4 d ays AZITHROMYCIN 55081090358 No Longer Active Columba Raida Act nael ZITHROMAX 250 MG ORAL TABLET 2 po today, then 1 po q days 2-5 20 14/03/21 AZITHROMYCIN 72667277758 No Longer Active Carlton Hu MD Active ZITHROMAX Z-REYNA 250 MG ORAL TABLET 2 today, then 1 daily for 4 d ays AZITHROMYCIN 76641911060 No Longer Active Columba Raida Act nael AUGMENTIN 875-125 MG ORAL TABLET 1 po BID x 10 days 13/01/20 AMOXICILLIN-POT CLAVULANATE 55234891237 No Longer Active Diya De Guzman APRN Active ZITHROMAX 250 MG ORAL TABLET 2 po today, then 1 po q days 2-5 20 12/08/14 AZITHROMYCIN 84819603124 No Longer Active Carlton Hu MD Active TRAMADOL HCL 50 MG ORAL TABLET 1 po tid with ES Tylenol TRAMADOL HCL 80135960374 Active Carlton Hu MD Active PREMARIN 0.625 MG ORAL TABLET TAKE 1 TAB BY MOUTH DAILY ESTROGENS CONJUGATED 89048722440 No Longer Active Ridge Bess DO A ctive CYMBALTA 30 MG ORAL CAPSULE DELAYED RELEASE PARTICLES 1 cap by mouth daily DULOXETINE HCL 59174008391 No Longer Active Ridge tam DO Active AMOXICILLIN 500 MG ORAL CAPSULE 1 tab by mouth 3 times daily x 10 days AMOXICILLIN 69014628098 No Longer Active Carlton bustamante MD Active AMOXICILLIN 500 MG ORAL CAPSULE 1 tab by mouth 3 times daily x 10 days AMOXICILLIN 62598945620 No Longer Active Carlton bustamante MD Active PROMETHAZINE-CODEINE 6.25-10 MG/5ML ORAL SYRUP 1 tsp b y mouth every 8 hours prn cough PROMETHAZINE-CODEINE 46792873676 No Longer Acti ve Carlton Hu MD Active MEDROL 4 MG ORAL TABLET THERAPY PACK 6 pills x 1 day, then 5 pills x 1 day then 4 pills x 1 day, then 3 pills x 1 day, then 2 pills x 1 day, then 1 pill x 1 day, then stop METHYLPREDNISOLONE 26384553038 No Long er Active Perez Mora MD Active AZITHROMYCIN 250 MG ORAL TABLET 2 po qd x 1 day, then 1 po q d x 4 days AZITHROMYCIN 94963058674 No Longer Active Perez Ambriz MD Active SYMBICORT 160-4.5 MCG/ACT INHALATION AEROSOL 2 puffs bid wit h rinse after BUDESONIDE-FORMOTEROL FUMARATE 72496973800 N o Longer Active Perez Mora MD Active LYRICA 75 MG ORAL CAPSULE TAKE 1 CAPSULE BY MOUTH TWICE DAILY PREGABALIN 39778928714 No Longer Active Carlton Hu MD Acti ve TOPAMAX 25 MG ORAL TABLET 1 qHS x 1 week, then 1 BID x 1 week, then 1 qAM and 2 qHS x 1 week, then 2 BID (migraine prevention) T OPIRAMATE 63414986698 No Longer Active Jerica FUENTES Active TOPAMAX 50 MG ORAL TABLET take 1 tab po BID for migraines. 07/02 TOPIRAMATE 89726575699 No Longer Active Jerica FUENTES Active TOPAMAX 100 MG ORAL TABLET Take 1 tablet po bid TO PIRAMATE 02938887361 Active Carlton Hu MD Active TRIAMCINOLONE ACETONIDE 0.1 % EXTERNAL CREAM apply three roger es daily prn rash TRIAMCINOLONE ACETONIDE 64847216645 No Longer Active Carlton Hu MD Active PAXIL 40 MG ORAL TABLET take 1 tab po qday for depression 0 PAROXETINE HCL 42939139009 Active Perez Mora MD Active CHERATUSSIN AC 100-10 MG/5ML ORAL SYRUP 5ml po q6hr PRN Cough 20 13/04/14 GUAIFENESIN-CODEINE 31560843280 No Longer Active Carlton Hu MD Active MEDROL 4 MG ORAL TABLET THERAPY PACK 6 tabs on day 1, 5 tabs on day 2, 4 tabs on day 3, 3 tabs on day 4, 2 tabs on day 5, 1 tab on day 6 2013 METHYLPREDNISOLONE 50073964025 No Longer Active Perez Mora MD Active AZITHROMYCIN 250 MG ORAL TABLET 2 po qd x 1 day, then 1 po q d x 4 days AZITHROMYCIN 74704541969 No Longer Active Perez Ambriz MD Active PROPRANOLOL HCL 60 MG ORAL TABLET 1 PO Q D PROPRANOLOL HCL 86855780501 No Longer Active Perez Mora MD Activ e CHERATUSSIN AC 100-10 MG/5ML ORAL SYRUP take one tsp po Q 6h ours prn cough GUAIFENESIN-CODEINE 87596460226 No Longer Active Zia Mora MD Active AUGMENTIN 875-125 MG ORAL TABLET 1 tab by mouth twice daily with food AMOXICILLIN-POT CLAVULANATE 16575674074 No Longer Act nael Perez Mora MD Active CHERATUSSIN AC 100-10 MG/5ML ORAL SYRUP 1 tsp by mouth every 4 hours as needed for cough GUAIFENESIN-CODEINE 66253494692 No Longe r Active Hugo Restrepo MD Active ACETAMINOPHEN-CODEINE #3 300-30 MG ORAL TABLET 1 PO Q 4-6 HRS UT N PAIN ACETAMINOPHEN-CODEINE 90615736224 No Longer Active Hugo Restrepo MD Active LEVAQUIN 500 MG ORAL TABLET take one po QD LEVO FLOXACIN 41744268109 No Longer Active Griffin HERNANDEZ Active PREDNISONE 20 MG ORAL TABLET Take 3 tabs daily for 3 d ays, 2 tabs daily for 3 days, 1 tab daily for 3 days, 1/2 tab daily for 3 days 11/07 PREDNISONE 09142559157 No Longer Active Carlton Hu MD Acti ve AVELOX 400 MG ORAL TABLET 1 tab by mouth daily MOXIFLOXACIN HCL 15273604971 No Longer Active Carlton Hu MD Active CHERATUSSIN AC 100-10 MG/5ML ORAL SYRUP 1 tsp by mouth every 4 hours as needed for cough GUAIFENESIN-CODEINE 37410683288 No Longe r Active Hugo Restrepo MD Active AVELOX 400 MG ORAL TABLET 1 tab by mouth daily MOXIFLOXACIN HCL 85871029837 No Longer Active Marcy De La Rosa MD PhD Active TERBINAFINE HCL 250 MG ORAL TABLET 1 qDay T ERBINAFINE HCL 08433957460 No Longer Active Marcy De La Rosa MD PhD Active CHERATUSSIN AC 100-10 MG/5ML ORAL SYRUP 1 tsp by mouth every 4 hours as needed for cough GUAIFENESIN-CODEINE 57592472344 No Longe r Active Marcy De La Rosa MD PhD Active AVELOX 400 MG ORAL TABLET 1 tab by mouth daily MOXIFLOXACIN HCL 27501441554 No Longer Active Marcy De La Rosa MD PhD Active HYDROCODONE-ACETAMINOPHEN 5-325 MG ORAL TABLET 1 po q 6hr PRN co ugh HYDROCODONE-ACETAMINOPHEN 55813656260 No Longer Active Marcy De La Rosa MD PhD Active PREDNISONE 20 MG ORAL TABLET 2 tabs daily for 3 days, 1 tab daily for 3 days, 1/2 tab daily for 2 days PREDNISONE 12834252042 No Longer Active Carlton Hu MD Active CEFDINIR 300 MG ORAL CAPSULE by mouth twice a day 2011 CEFDINIR 51770574687 No Longer Active Carlton Hu MD Acti ve HYDROCHLOROTHIAZIDE 25 MG ORAL TABLET 1 TAB PO DAILY HYDROCHLOROTHIAZIDE 96629286905 Active Carlton Hu MD A ctive ACETAMINOPHEN-CODEINE #3 300-30 MG ORAL TABLET 1 tablet po q 4-6 hrs prn pain ACETAMINOPHEN-CODEINE 80550394294 No Longer Active Ridge Bess DO Active ZITHROMAX 250 MG ORAL TABLET 2 po today, then 1 po q days 2-5 20 03/07/07 AZITHROMYCIN 01115636042 No Longer Active Carlton Hu MD Active CHERATUSSIN AC 100-10 MG/5ML ORAL SYRUP take 1 tsp po q4-6 h ours prn cough GUAIFENESIN-CODEINE 55547775603 No Longer Active Jayden Hu MD Active ACETAMINOPHEN-CODEINE #3 300-30 MG ORAL TABLET 1 PO Q 4-6 HR PRN PAIN ACETAMINOPHEN-CODEINE 67773894808 No Longer Active Arnol Hu MD Active LORTAB 7.5-500 MG/15ML ORAL ELIXIR 7.5 ml po q 4 hour prn cough HYDROCODONE-ACETAMINOPHEN 10607593113 No Longer Active Carlton Hu MD Active PREDNISONE 20 MG ORAL TABLET 1 po bid 3 days, then 1 po q day 3 days PREDNISONE 93289592405 No Longer Active Carlton Hu MD Active CEFDINIR 300 MG ORAL CAPSULE by mouth twice a day 2011 CEFDINIR 44658880555 No Longer Active Carlton Hu MD Acti ve CEFDINIR 300 MG ORAL CAPSULE by mouth twice a day 2010 CEFDINIR 87540376398 No Longer Active Carlton Hu MD Acti ve CEFDINIR 300 MG ORAL CAPSULE by mouth twice a day 2010 CEFDINIR 04037321755 No Longer Active Carlton Hu MD Acti ve TESSALON PERLES 100 MG ORAL CAPSULE 1 tablet by mouth 3 times daily as needed for cough BENZONATATE 42527550807 No Longer Active Carlton Hu MD Active CEFDINIR 300 MG ORAL CAPSULE by mouth twice a day 2010 CEFDINIR 77120324487 No Longer Active Carlton Hu MD Acti ve ZITHROMAX Z-REYNA 250 MG ORAL TABLET 2 today, then 1 daily for 4 d ays AZITHROMYCIN 25698742564 No Longer Active Hugo Restrepo MD Active TESSALON PERLES 100 MG ORAL CAPSULE 1 tablet by mouth 3 times daily as needed for cough TESSALON PERLES 100 MG ORAL CAPSULE 46027 7 BENZONATATE Inactive PREDNISONE 20 MG ORAL TABLET 1 po bid 3 days, then 1 po q day 3 days PREDNISONE 20 MG ORAL TABLET 027808 PREDNISONE [place] ctive LORTAB 7.5-500 MG/15ML ORAL ELIXIR 7.5 [...] cough CHERATUSSIN AC 100-10 MG/5ML ORAL SYRUP 298230 GUAIFENESIN-CODEINE Inactive ACETAMINOPHEN-CODEINE #3 300-30 MG ORAL TABLET 1 tablet po q 4-6 hrs prn pain ACETAMINOPHEN-CODEINE #3 300-30 MG ORAL TABLET ACETAMINOPHEN-CODEINE Inactive HYDROCODONE-ACETAMINOPHEN 5-325 MG ORAL TABLET 1 po q 6hr PRN co ugh HYDROCODONE-ACETAMINOPHEN 5-325 MG ORAL TABLET 848303 HYDROCODONE-ACETAMINOPHEN Inactive AVELOX 400 MG ORAL TABLET 1 tab by mouth daily AVELOX 400 MG ORAL TABLET 150077 MOXIFLOXACIN HCL Inactive CHERATUSSIN AC 100-10 MG/5ML ORAL SYRUP 1 tsp by mouth every 4 hours as needed for cough CHERATUSSIN AC 100-10 MG/5ML ORAL SYRUP 9 19480 GUAIFENESIN-CODEINE Inactive TERBINAFINE HCL 250 MG ORAL TABLET 1 qDay 07/08 TERBINAFINE HCL 250 MG ORAL TABLET 689769 TERBINAFINE HCL Inactive CHERATUSSIN AC 100-10 MG/5ML ORAL SYRUP 1 tsp by mouth every 4 hours as needed for cough CHERATUSSIN AC 100-10 MG/5ML ORAL SYRUP 9 90072 GUAIFENESIN-CODEINE Inactive ACETAMINOPHEN-CODEINE #3 300-30 MG ORAL TABLET 1 PO Q 4-6 HRS UT N PAIN ACETAMINOPHEN-CODEINE #3 300-30 MG ORAL TABLET ACETAMINOPHEN-CODEINE Inactive CHERATUSSIN AC 100-10 MG/5ML ORAL SYRUP 1 tsp by mouth every 4 hours as needed for cough CHERATUSSIN AC 100-10 MG/5ML ORAL SYRUP 9 18331 GUAIFENESIN-CODEINE Inactive AUGMENTIN 875-125 MG ORAL TABLET 1 tab by mouth twice daily with food AUGMENTIN 875-125 MG ORAL TABLET 834088 AMOXICIL MADELINE-POT CLAVULANATE Inactive CHERATUSSIN AC 100-10 MG/5ML ORAL SYRUP take one tsp po Q 6h ours prn cough CHERATUSSIN AC 100-10 MG/5ML ORAL SYRUP 964607 GUAIFENESIN-CODEINE Inactive PROPRANOLOL HCL 60 MG ORAL TABLET 1 PO Q D PROPRANOLOL HCL 60 MG ORAL TABLET 875710 PROPRANOLOL HCL Inactive TOPAMAX 50 MG ORAL TABLET take 1 tab po BID for migraines. 07/02 TOPAMAX 50 MG ORAL TABLET 599987 TOPIRAMATE Inacti ve TOPAMAX 25 MG ORAL TABLET 1 qHS x 1 week, then 1 BID x 1 week, then 1 qAM and 2 qHS x 1 week, then 2 BID (migraine prevention) TOPAMAX 25 MG ORAL TABLET 660693 TOPIRAMATE Inactive LYRICA 75 MG ORAL CAPSULE TAKE 1 CAPSULE BY MOUTH TWICE DAILY LYRICA 75 MG ORAL CAPSULE PREGABALIN Inactive SYMBICORT 160-4.5 MCG/ACT INHALATION AEROSOL 2 puffs bid wit h rinse after SYMBICORT 160-4.5 MCG/ACT INHALATION AEROSOL BUDESONIDE- FORMOTEROL FUMARATE Inactive PROMETHAZINE-CODEINE 6.25-10 MG/5ML ORAL SYRUP 1 tsp b y mouth every 8 hours prn cough PROMETHAZINE-CODEINE 6.25-10 MG/ 5ML ORAL SYRUP 847013 PROMETHAZINE-CODEINE Inactive CYMBALTA 30 MG ORAL CAPSULE DELAYED RELEASE PARTICLES 1 cap by mouth daily CYMBALTA 30 MG ORAL CAPSULE DELAYED RELE ASE PARTICLES 358078 DULOXETINE HCL Inactive PREMARIN 0.625 MG ORAL TABLET TAKE 1 TAB BY MOUTH DAILY PREMARIN 0.625 MG ORAL TABLET ESTROGENS CONJUGATED Inactive CHERATUSSIN AC 100-10 MG/5ML ORAL SYRUP 1 tsp by mouth every 4 hours as needed for cough CHERATUSSIN AC 100-10 MG/5ML ORAL SYRUP 9 53831 GUAIFENESIN-CODEINE Inactive PROMETHAZINE-CODEINE 6.25-10 MG/5ML ORAL SYRUP 1 tsp b y mouth every 6 hours if needed for cough PROMETHAZINE-CODEINE 6.25-10 MG/5ML ORAL SYRUP 701493 PROMETHAZINE-CODEINE Inactive CHERATUSSIN AC 100-10 MG/5ML ORAL SYRUP 1 tsp by mouth every 4 hours as needed for cough CHERATUSSIN AC 100-10 MG/5ML ORAL SYRUP 9 03920 GUAIFENESIN-CODEINE Inactive FLUTICASONE PROPIONATE 50 MCG/ACT NASAL SUSPENSION 1 t o 2 sprays each nostril daily FLUTICASONE PROPIONATE 50 MCG/AC T NASAL SUSPENSION 7806242 FLUTICASONE PROPIONATE Inactive PREDNISONE 20 MG ORAL TABLET 3 tab PO qd x 2d, 2 tab P O qd x 2d, 1 tab PO qd x 2d, 1/2 tab PO qd x 2d PREDNISONE 20 MG ORAL TAB LET 862482 PREDNISONE Inactive LEVOFLOXACIN 500 MG ORAL TABLET 1 tab PO daily x 10 days LEVOFLOXACIN 500 MG ORAL TABLET 075713 LEVOFLOXACIN Inactive CYCLOBENZAPRINE HCL 10 MG ORAL TABLET 1 tablet by mouth BID prn had pain CYCLOBENZAPRINE HCL 10 MG ORAL TABLET 886883 CYCLOBENZAPRINE HCL Inactive ZOCOR 40 MG ORAL TABLET 1 tab by mouth daily 4 ZOCOR 40 MG ORAL TABLET 436758 SIMVASTATIN Inactive TUSSIONEX PENNKINETIC ER 10-8 MG/5ML [...] FLUTICASONE PROPIO EFE 50 MCG/ACT NASAL SUSPENSION 9253711 FLUTICASONE PROPIONATE Inactive TUSSIONEX PENNKINETIC ER 10-8 [...] three days PREDNISONE 20 MG ORAL TABLET 408466 PREDNIS ONE Inactive PROAIR HFA 108 (90 BASE) MCG/ACT INHALATION AEROSOL SO LUTION 2 puffs four times a day as needed PROAIR HFA 108 (90 B ASE) MCG/ACT INHALATION AEROSOL SOLUTION ALBUTEROL SULFATE Inactive ZITHROMAX Z-REYNA 250 MG ORAL TABLET 2 today, then 1 daily for 4 d ays ZITHROMAX Z-REYNA 250 MG ORAL TABLET 070874 AZITHROMYCIN Inactive CEFDINIR 300 MG ORAL CAPSULE by mouth twice a day 2010 CEFDINIR 300 MG ORAL CAPSULE 905464 CEFDINIR Inactive CEFDINIR 300 MG ORAL CAPSULE [...] today, then 1 po q days 2-5 03/07/07 ZITHROMAX 250 MG ORAL TABLET 848681 AZITHROMYCIN [place] ctive CEFDINIR 300 MG ORAL CAPSULE by mouth twice a day 2011 CEFDINIR 300 MG ORAL CAPSULE 20020704 CEFDINIR Inactive PREDNISONE 20 MG ORAL TABLET 2 tabs daily for 3 days, 1 tab daily for 3 days, 1/2 tab daily for 2 days PREDNISONE 20 MG ORAL T ABLET 195967 PREDNISONE Inactive AVELOX 400 MG ORAL TABLET 1 tab by mouth daily AVELOX 400 MG ORAL TABLET 606037 MOXIFLOXACIN HCL Inactive AVELOX 400 MG ORAL TABLET 1 tab by mouth daily AVELOX 400 MG ORAL TABLET 340634 MOXIFLOXACIN HCL Inactive PREDNISONE 20 MG ORAL TABLET Take 3 tabs daily for 3 d ays, 2 tabs daily for 3 days, 1 tab daily for 3 days, 1/2 tab daily for 3 days 11/07 PREDNISONE 20 MG ORAL TABLET 020902 PREDNISONE Inactive LEVAQUIN 500 MG ORAL TABLET take one po QD LEVAQUIN 500 MG ORAL TABLET 674233 LEVOFLOXACIN Inactive AZITHROMYCIN 250 MG ORAL TABLET 2 po qd x 1 day, then 1 po q d x 4 days AZITHROMYCIN 250 MG ORAL TABLET 007350 AZITHROMY GIOVANNI Inactive MEDROL 4 MG ORAL TABLET THERAPY PACK 6 tabs on day 1, 5 tabs on day 2, 4 tabs on day 3, 3 tabs on day 4, 2 tabs on day 5, 1 tab on day 6 2013 MEDROL 4 MG ORAL TABLET THERAPY PACK 223463 METHYLPREDNISOLONE [place] ctive CHERATUSSIN AC 100-10 MG/5ML ORAL SYRUP 5ml po q6hr PRN Cough 20 13/04/14 CHERATUSSIN AC 100-10 MG/5ML ORAL SYRUP 059049 GUAIFENE SIN-CODEINE Inactive TRIAMCINOLONE ACETONIDE 0.1 % EXTERNAL CREAM apply three roger es daily prn rash TRIAMCINOLONE ACETONIDE 0.1 % EXTERNAL CREAM 101 4314 TRIAMCINOLONE ACETONIDE Inactive AZITHROMYCIN 250 MG ORAL TABLET 2 po qd x 1 day, then 1 po q d x 4 days AZITHROMYCIN 250 MG ORAL TABLET 727507 AZITHROMY GIOVANNI Inactive MEDROL 4 MG ORAL TABLET THERAPY PACK 6 pills x 1 day, then 5 pills x 1 day then 4 pills x 1 day, then 3 pills x 1 day, then 2 pills x 1 day, then 1 pill x 1 day, then stop MEDROL 4 MG ORAL TABLET THERAPY PACK 056000 METHYLPREDNISOLONE Inactive AMOXICILLIN 500 MG ORAL CAPSULE 1 tab by mouth 3 times daily x 10 days AMOXICILLIN 500 MG ORAL CAPSULE 999281 AMOXICILL IN Inactive AMOXICILLIN 500 MG ORAL CAPSULE 1 tab by mouth 3 times daily x 10 days AMOXICILLIN 500 MG ORAL CAPSULE 591871 AMOXICILL IN Inactive ZITHROMAX 250 MG ORAL TABLET 2 po today, then 1 po q days 2-5 20 12/08/14 ZITHROMAX 250 MG ORAL TABLET 427005 AZITHROMYCIN [place] ctive AUGMENTIN 875-125 MG ORAL TABLET 1 po BID x 10 days 20 13/01/20 AUGMENTIN 875-125 MG ORAL TABLET 799583 AMOXICILLIN-POT CLAVULANATE Inactive ZITHROMAX Z-REYNA 250 MG ORAL TABLET 2 today, then 1 daily for 4 d ays ZITHROMAX Z-REYNA 250 MG ORAL TABLET 556004 AZITHROMYCIN Inactive ZITHROMAX 250 MG ORAL TABLET 2 po today, then 1 po q days 2-5 20 14/03/21 ZITHROMAX 250 MG ORAL TABLET 035688 AZITHROMYCIN [place] ctive ZITHROMAX Z-REYNA 250 MG ORAL TABLET 2 today, then 1 daily for 4 d ays ZITHROMAX Z-REYNA 250 MG ORAL TABLET 317148 AZITHROMYCIN Inactive CEFDINIR 300 MG ORAL CAPSULE 1 po BID x 10 days 06/21 CEFDINIR 300 MG ORAL CAPSULE 20020704 CEFDINIR Inactive ZITHROMAX 250 MG ORAL TABLET 2 po today, then 1 po q days 2-5 20 13/08/10 ZITHROMAX 250 MG ORAL TABLET 043317 AZITHROMYCIN [place] ctive LEVAQUIN 500 MG ORAL TABLET 1 tablet by mouth daily 13/09/24 LEVAQUIN 500 MG ORAL TABLET 19971102 LEVOFLOXACIN Inactive SINGULAIR 10 MG ORAL TABLET 1 po qday for allergies 20 14/01/12 SINGULAIR 10 MG ORAL TABLET 20010504 MONTELUKAST SODIUM Inactive AMOXICILLIN 500 MG ORAL CAPSULE 2 po BID x 10 days 201 09/29/08 AMOXICILLIN 500 MG ORAL CAPSULE 288803 AMOXICILLIN Inactive PREDNISONE 20 MG ORAL TABLET 2 tabs daily for 3 days, 1 tab daily for 3 days, 1/2 tab daily for 2 days PREDNISONE 20 MG ORAL T ABLET 200945 PREDNISONE Inactive ZITHROMAX Z-REYNA 250 MG ORAL TABLET 2 today, then 1 daily for 4 d ays ZITHROMAX Z-REYNA 250 MG ORAL TABLET 230443 AZITHROMYCIN Inactive PREDNISONE 20 MG ORAL TABLET 2 tabs daily for 3 days, 1 tab daily for 3 days, 1/2 tab daily for 2 days PREDNISONE 20 MG ORAL T ABLET 095429 PREDNISONE Inactive ZITHROMAX 250 MG ORAL TABLET 2 po today, then 1 po q days 2-5 20 14/09/04 ZITHROMAX 250 MG ORAL TABLET 949583 AZITHROMYCIN Greer ctive AMOXICILLIN 500 MG ORAL CAPSULE 1 cap by mouth three times a day AMOXICILLIN 500 MG ORAL CAPSULE 641038 AMOXICILLIN Inactive TERBINAFINE HCL 250 MG ORAL TABLET 1 qDay for nail fungus 7 TERBINAFINE HCL 250 MG ORAL TABLET 388238 TERBINAFINE HCL Inact nael AUGMENTIN 875-125 MG ORAL TABLET 1 po BID x 10 days 16/03/22 AUGMENTIN 875-125 MG ORAL TABLET 768964 AMOXICILLIN-POT CLAVULANATE Inactive PREDNISONE 20 MG ORAL TABLET 2 po qd x 5 days PREDNISONE 20 MG ORAL TABLET 066083 PREDNISONE Inactive Vital Signs Date Name Value Unit Range Description blood pressure, diastolic 53 mm[Hg] BP srinivasan blood pressure, systolic 65 mm[Hg] BP sys height E&M 53 [in_us] Bdy height pulse rate E&M 86 /min Heart rate temperature E&M 98.6 [degF] Body temp erature weight E&M 139.5 [lb_av] Weight Measure d blood pressure, diastolic 73 mm[Hg] BP srinivasan blood pressure, systolic 125 mm[Hg] BP sys height E&M 53 [in_us] Bdy height pulse rate E&M 82 /min Heart rate temperature E&M 97.3 [degF] Body temp erature weight E&M 141 [lb_av] Weight Measure d blood pressure, diastolic 69 mm[Hg] BP srinivasan blood pressure, systolic 101 mm[Hg] BP sys height E&M 53 [in_us] Bdy height pulse rate E&M 120 /min Heart rate temperature E&M 98.3 [degF] Body temp erature weight E&M 138.50 [lb_av] Weight Measure d blood pressure, diastolic 64 mm[Hg] BP srinivasan blood pressure, systolic 102 mm[Hg] BP sys pulse rate E&M 95 /min Heart rate temperature E&M 97.5 [degF] Body temp erature weight E&M 137 [lb_av] Weight Measure d Diagnostic Results Date Name Value Unit Range Description Lab Report: Basic Metabolic Panel - Chem istry sodium, serum 142 mmol/L 240-099 4823/07/17 potassium, serum 4.2 mmol/L 3.5-5.2 chloride, serum 106 mmol/L 98-107 carbon dioxide, venous blood 29.9 mmol/L 21.0-32 .0 blood glucose 108 mg/dL 65-110 calcium, serum 9.1 mg/dL 8.5-10.1 urea nitrogen, blood 11 mg/dL 7-18 creatinine, serum 0.81 mg/dL 0.60-1.30 sodium, serum 139 mmol/L 800-424 6000/03/19 potassium, serum 3.6 mmol/L 3.5-5.2 chloride, serum 100 mmol/L 98-107 carbon dioxide, venous blood 30.3 mmol/L 21.0-32 .0 blood glucose 101 mg/dL 65-110 calcium, serum 9.4 mg/dL 8.5-10.1 urea nitrogen, blood 10 mg/dL 7-18 creatinine, serum 0.96 mg/dL 0.60-1.30 Encounters Code Encounter Date Provider Facility CPT-57708 Level 3 Est. Patient 11:34:49 MATERIAL INSPECTOR Perez Mora MD [facility] CPT-57496 Level 4 Est. Patient 09:51:32 MATERIAL INSPECTOR Carlton rich MD [facility] CPT-37548 Level 3 Est. Patient 10:26:00 MATERIAL INSPECTOR Elise stephenson APRN [facility] CPT-00099 Level 3 Est. Patient 13:35:41 MATERIAL INSPECTOR Carlton rich MD [facility] CPT-38070 Level 3 Est. Patient 10:03:52 MATERIAL INSPECTOR Carlton rich MD [facility] CPT-07430 Level 3 Est. Patient 12:17:50 CDT Hugo Restrepo MD [facility] CPT-25131 Level 3 Est. Patient 13:42:38 CDT Elise Are [facility] CPT-79691 Level 3 Est. Patient 13:23:51 CDT Diya cobian [facility] CPT-86958 Level 3 Est. Patient 14:22:19 MATERIAL INSPECTOR Diya Mariana cobian [facility] CPT-11764 Level 3 Est. Patient 10:11:46 CDT Carlton rich MD [facility] CPT-03299 Level 3 Est. Patient 17:29:43 CDT Elise Are [facility] CPT-96930 Level 3 Est. Patient 11:58:06 CDT Elise Are [facility] CPT-78230 Level 4 Est. Patient 14:36:51 CDT Carlton rich MD [facility] CPT-25242 Level 3 Est. Patient 18:16:00 MATERIAL INSPECTOR Baline HERNANDEZ [facility] CPT-80750 Level 3 Est. Patient 09:45:49 MATERIAL INSPECTOR Carlton rich MD [facility] CPT-94188 Level 3 Est. Patient 13:19:20 CDT Carlton rich MD [facility] CPT-48895 Level 3 Est. Patient 13:06:43 CDT Ridge tam DO [facility] CPT-79754 Level 3 Est. Patient 10:03:07 CDT Perez Mora MD [facility] CPT-30321 Level 3 Est. Patient 19:50:35 MATERIAL INSPECTOR Carlton rich MD [facility] CPT-69614 Level 4 Est. Patient 18:05:01 MATERIAL INSPECTOR Carlton rich MD [facility] CPT-37458 Level 3 Est. Patient 10:45:55 MATERIAL INSPECTOR Hugo Restrepo MD [facility]-84027 Level 3 Est. Patient 14:12:49 CDT Griffin HERNANDEZ [facility]-41802 Level 3 Est. Patient 17:37:24 CDT Carlton rich MD [facility]-07693 Level 3 Est. Patient 16:51:54 CDT Carlton rich MD [facility]-84289 Level 3 Est. Patient 12:18:11 CDT Hugo Restrepo MD [facility]-60991 Level 3 Est. Patient 11:30:25 CDT Marcy crisostomo MD PhD [facility]-43895 Level 3 Est. Patient 12:00:47 MATERIAL INSPECTOR Carlton rich MD [facility]-58577 Level 3 Est. Patient 16:31:06 MATERIAL INSPECTOR Carlton rich MD [facility] CPT-22359 Level 3 Est. Patient 16:23:24 MATERIAL INSPECTOR Ridge tam [facility]-45454 Level 3 Est. Patient 12:34:12 CDT Carlton rich MD [facility]-32554 Level 2 Est. Patient 15:43:33 CDT Robi armstrong MD [facility]-68501 Level 4 Est. Patient 14:04:44 CDT Carlton rich MD [facility]-06570 Level 3 Est. Patient 05:47:59 CDT Ridge tam [facility]-69282 Level 3 Est. Patient 13:12:53 MATERIAL INSPECTOR Carlton rich MD [facility]-77708 Level 3 Est. Patient 14:26:53 CDT Hugo Restrepo MD [facility] Procedures Code Procedure Name Date Entry Date Standard Desc ription CPT-000 Give Appropriate Flu Vaccine 14:14:31 CDT 2 CPT-J1040 Depo Medrol 80 mg (Methyl Prednisolone A cetate) 10:42:44 CDT CPT-J1100 Decadron 8mg (Dexamethasone) 10:42:44 CDT 2 CPT-J0696 Rocephin 1gm Inj Solr 14:32:13 CDT CPT-J1020 Depo Medrol 60 mg (Methyl Prednisolone A cetate) 14:32:13 CDT CPT-J1100 Decadron 6mg (Dexamethasone) 14:32:13 CDT 2 CPT-00615 Hip bilat min 2V w AP pelvis 13:16:20 CDT 2 CPT-97953 Pelvis only 13:07:33 CDT CPT-30814 Spec Collection and Handling Fee 11:25:12 C DT CPT-80630 Fluzone Quadrivalent Intramuscular Suspe nsion 0.5 ML 14:31:55 CDT CPT-23475 Abx/Therapy Injection 13:28:47 MATERIAL INSPECTOR CPT-J2930 Solu Medrol 125 mg (Methyl Prednisolone Sodium Succinate) 12:00:47 MATERIAL INSPECTOR CPT-04456 Venipuncture Draw Fee 11:33:31 CDT CPT-12880 EKG Trac and Interp 11:21:09 CDT CPT-28137 Chest 2V Frontal and Lat 11:21:09 CDT 12/15 CPT-60585 Venipuncture Draw Fee 08:02:34 CDT CPT-13400 Chest 2V Frontal and Lat 05:47:59 CDT 06/05
--- OUTSIDE RECORDS SUMMARY | 2019-10-08 08:04 | XMS REPORT | Clinical Summary ---
Author Author Caitlin, Juliana Martinez Organization [facility] Address Unknown Phone Unavailable Allergies, Adverse Reactions, [...] po qd x 5 days P REDNISONE [id number] No Longer Active Perez Mora MD Active PROAIR HFA 108 (90 BASE) MCG/ACT INHALATION AEROSOL SO LUTION 2 puffs four times a day as needed ALBUTEROL SULFATE 07542292319 No Long er Active Becky FUENTES Active ASPIRIN 81 MG ORAL TABLET 1 po qd ASPIRIN 37088012474 Active Carlton Hu MD Active PREDNISONE 20 MG ORAL TABLET 1 tab twice daily for 3 d ay, then one daily for three days PREDNISONE 00319269721 No Longer Active Carlton Hu MD Active AUGMENTIN 875-125 MG ORAL TABLET 1 po BID x 10 days 16/03/22 AMOXICILLIN-POT CLAVULANATE 22449551886 No Longer Active Elise Garcia APRN Active TERBINAFINE HCL 250 MG ORAL TABLET 1 qDay for nail fungus 7 TERBINAFINE HCL 74159196398 No Longer Active Carlton Hu MD A ctive TUSSIONEX PENNKINETIC ER 10-8 MG/5ML ORAL SUSPENSION E XTENDED RELEASE 5ml po q12hr PRN Cough HYDROCOD POLST-CHLORPHEN POLST 05209272695 Active Carlton Hu MD Active AMOXICILLIN 500 MG ORAL CAPSULE 1 cap by mouth three times a day AMOXICILLIN 77718268627 No Longer Active Carlton Hu MD Active ELMIRON 100 MG ORAL CAPSULE 2 tablets in the am and 1 tablet at hs PENTOSAN POLYSULFATE SODIUM 76964420426 No Longer Active Robert Hu MD Active MUCINEX D 60-600 MG ORAL TABLET EXTENDED RELEASE 12 HOUR 1 t ab po q am PSEUDOEPHEDRINE-GUAIFENESIN 71368351327 No Longer Act nael Carlton Hu MD Active MUCINEX DM MAXIMUM STRENGTH 60-1200 MG ORAL TABLET EXT ENDED RELEASE 12 HOUR 1 tab po q am DEXTROMETHORPHAN-GUAIFENESIN 72602067516 No Longer Active Carlton Hu MD Active TUSSIONEX PENNKINETIC ER 10-8 MG/5ML ORAL SUSPENSION E XTENDED RELEASE 5ml po q12hr PRN Cough HYDROCOD POLST-CHLORPHEN POLST 5 7121041594 No Longer Active Carlton Hu MD Active POTASSIUM CHLORIDE ER 20 MEQ ORAL TABLET EXTENDED RELE ASE Take 1 by mouth 4 times daily for 7 days POTASSIUM CHLORIDE 05470108338 No Longer Active Carlton Hu MD Active ZITHROMAX 250 MG ORAL TABLET 2 po today, then 1 po q days 2-5 20 14/09/04 AZITHROMYCIN 92106211717 No Longer Active Elise Garcia APRN Active TUSSIONEX PENNKINETIC ER 10-8 MG/5ML ORAL SUSPENSION E XTENDED RELEASE 5 ml twice a day as needed for cough HYDROCOD POLST-CHLORPH EN POLST 70430281757 No Longer Active Elise Garcia APRN Active MONTELUKAST SODIUM 10 MG ORAL TABLET 1 po daily for Allergy MONTELUKAST SODIUM 15981719524 Active Carlton Hu MD Ac tive TUSSIONEX PENNKINETIC ER 10-8 MG/5ML ORAL SUSPENSION E XTENDED RELEASE 5ml po q12hr PRN Cough HYDROCOD POLST-CHLORPHEN POLST 5 3961312635 No Longer Active Hugo Restrepo MD Active GABAPENTIN 100 MG ORAL CAPSULE 1 po BID for fibromyalgia GABAPENTIN 79279388228 Active Carlton Hu MD Active LYRICA 100 MG ORAL CAPSULE Take 1 tab po BID for fibromyalgia 20 11/08/21 PREGABALIN 85980475686 No Longer Active Elise Garcia APRN A ctive PREDNISONE 20 MG ORAL TABLET 2 tabs daily for 3 days, 1 tab daily for 3 days, 1/2 tab daily for 2 days PREDNISONE 68895038630 No Longer Active Diya De Guzman APRN Active TUSSIONEX PENNKINETIC ER 10-8 MG/5ML ORAL SUSPENSION E XTENDED RELEASE 5 mL PO q 12 hrs PRN cough HYDROCOD POLST-CHLORPHEN POLST 023334 20564 No Longer Active Jillina Gege RICEN Active FLUTICASONE PROPIONATE 50 MCG/ACT NASAL SUSPENSION 2 s prays each nostril daily until bottle is empty FLUTICASONE PROPIONATE 593675187 99 No Longer Active Diya De Guzman APRN Active ASMANEX 60 METERED DOSES 220 MCG/INH INHALATION AEROSO L POWDER BREATH ACTIVATED 1 puff bid with rinse after MOMETASONE FUROATE 2687629 4102 No Longer Active Diya De Guzman APRN Active ZITHROMAX Z-REYNA 250 MG ORAL TABLET 2 today, then 1 daily for 4 d ays AZITHROMYCIN 48470955911 No Longer Active Elise Garcia APRN Active TUSSIONEX PENNKINETIC ER 10-8 MG/5ML ORAL SUSPENSION E XTENDED RELEASE 5ml po q12hr PRN Cough HYDROCOD POLST-CHLORPHEN POLST 5 9492749474 No Longer Active Elise Garcia APRN Active PREDNISONE 20 MG ORAL TABLET 2 tabs daily for 3 days, 1 tab daily for 3 days, 1/2 tab daily for 2 days PREDNISONE 52754858855 No Longer Active Diya De Guzman APRN Active AMOXICILLIN 500 MG ORAL CAPSULE 2 po BID x 10 days 201 09/29/08 AMOXICILLIN 39961734568 No Longer Active Diya De Guzman APRN Act nael SINGULAIR 10 MG ORAL TABLET 1 po qday for allergies 20 14/01/12 MONTELUKAST SODIUM 53263199163 No Longer Active Carlton Hu MD Active LEVAQUIN 500 MG ORAL TABLET 1 tablet by mouth daily 20 13/09/24 LEVOFLOXACIN 60702537204 No Longer Active Carlton Hu MD Acti ve FLUTICASONE PROPIONATE 50 MCG/ACT NASAL SUSPENSION 2 s prays each nostril daily for 2 weeks, then 1 spray each nostril daily. FLUTICASONE PROPIONATE 64295507092 Active Elise Garcia APRN Active ZITHROMAX 250 MG ORAL TABLET 2 po today, then 1 po q days 2-5 20 13/08/10 AZITHROMYCIN 82482861947 No Longer Active Elise Garcia APRN Active XANAX 0.5 MG ORAL TABLET one tablet by mouth daily prn anxiety 2015 ALPRAZOLAM 66843198769 Active Carlton Hu MD Active CYMBALTA 30 MG ORAL CAPSULE DELAYED RELEASE PARTICLES 1 cap by mouth daily for depression DULOXETINE HCL 45615933349 Active Carlton beltrán MD Active CEFDINIR 300 MG ORAL CAPSULE 1 po BID x 10 days CEFDINIR 19709180171 No Longer Active Carlton Hu MD Active ZOCOR 40 MG ORAL TABLET 1 tab by mouth daily SI MVASTATIN 17382799084 No Longer Active Carlton Hu MD Active CYCLOBENZAPRINE HCL 10 MG ORAL TABLET 1 tablet by mouth BID prn had pain CYCLOBENZAPRINE HCL 76481858872 No Longer Active Jayden Hu MD Active LEVOFLOXACIN 500 MG ORAL TABLET 1 tab PO daily x 10 days LEVOFLOXACIN 65654312341 No Longer Active Carlton Hu MD Acti ve PREDNISONE 20 MG ORAL TABLET 3 tab PO qd x 2d, 2 tab P O qd x 2d, 1 tab PO qd x 2d, 1/2 tab PO qd x 2d PREDNISONE 38733803899 No Lo nger Active Carlton Hu MD Active FLUTICASONE PROPIONATE 50 MCG/ACT NASAL SUSPENSION 1 t o 2 sprays each nostril daily FLUTICASONE PROPIONATE 79567047213 No Longer Ac tive Blaine HERNANDEZ Active CHERATUSSIN AC 100-10 MG/5ML ORAL SYRUP 1 tsp by mouth every 4 hours as needed for cough GUAIFENESIN-CODEINE 28340540795 No Longe r Active Blaine HERNANDEZ Active PROMETHAZINE-CODEINE 6.25-10 MG/5ML ORAL SYRUP 1 tsp b y mouth every 6 hours if needed for cough PROMETHAZINE-CODEINE 72847574028 No Longer Active Blaine HERNANDEZ Active CHERATUSSIN AC 100-10 MG/5ML ORAL SYRUP 1 tsp by mouth every 4 hours as needed for cough GUAIFENESIN-CODEINE 60945133872 No Longe r Active Blaine HERNANDEZ Active ZITHROMAX Z-REYNA 250 MG ORAL TABLET 2 today, then 1 daily for 4 d ays AZITHROMYCIN 59608093625 No Longer Active Columba Raida Act nael ZITHROMAX 250 MG ORAL TABLET 2 po today, then 1 po q days 2-5 20 14/03/21 AZITHROMYCIN 26895678631 No Longer Active Carlton Hu MD Active ZITHROMAX Z-REYNA 250 MG ORAL TABLET 2 today, then 1 daily for 4 d ays AZITHROMYCIN 11731998042 No Longer Active Columba Raida Act nael AUGMENTIN 875-125 MG ORAL TABLET 1 po BID x 10 days 13/01/20 AMOXICILLIN-POT CLAVULANATE 94567507917 No Longer Active Diya De Guzman APRN Active ZITHROMAX 250 MG ORAL TABLET 2 po today, then 1 po q days 2-5 20 12/08/14 AZITHROMYCIN 42970240693 No Longer Active Carlton Hu MD Active TRAMADOL HCL 50 MG ORAL TABLET 1 po tid with ES Tylenol TRAMADOL HCL 29034800121 Active Carlton Hu MD Active PREMARIN 0.625 MG ORAL TABLET TAKE 1 TAB BY MOUTH DAILY ESTROGENS CONJUGATED 58390097745 No Longer Active Ridge Bess DO A ctive CYMBALTA 30 MG ORAL CAPSULE DELAYED RELEASE PARTICLES 1 cap by mouth daily DULOXETINE HCL 63400759834 No Longer Active Ridge tam DO Active AMOXICILLIN 500 MG ORAL CAPSULE 1 tab by mouth 3 times daily x 10 days AMOXICILLIN 19023103144 No Longer Active Carlton bustamante MD Active AMOXICILLIN 500 MG ORAL CAPSULE 1 tab by mouth 3 times daily x 10 days AMOXICILLIN 08960845576 No Longer Active Carlton bustamante MD Active PROMETHAZINE-CODEINE 6.25-10 MG/5ML ORAL SYRUP 1 tsp b y mouth every 8 hours prn cough PROMETHAZINE-CODEINE 09529006672 No Longer Acti ve Carlton Hu MD Active MEDROL 4 MG ORAL TABLET THERAPY PACK 6 pills x 1 day, then 5 pills x 1 day then 4 pills x 1 day, then 3 pills x 1 day, then 2 pills x 1 day, then 1 pill x 1 day, then stop METHYLPREDNISOLONE 81747907529 No Long er Active Perez Mora MD Active AZITHROMYCIN 250 MG ORAL TABLET 2 po qd x 1 day, then 1 po q d x 4 days AZITHROMYCIN 68592055917 No Longer Active Perez Ambriz MD Active SYMBICORT 160-4.5 MCG/ACT INHALATION AEROSOL 2 puffs bid wit h rinse after BUDESONIDE-FORMOTEROL FUMARATE 15481184263 N o Longer Active Perez Mora MD Active LYRICA 75 MG ORAL CAPSULE TAKE 1 CAPSULE BY MOUTH TWICE DAILY PREGABALIN 93159236705 No Longer Active Carlton Hu MD Acti ve TOPAMAX 25 MG ORAL TABLET 1 qHS x 1 week, then 1 BID x 1 week, then 1 qAM and 2 qHS x 1 week, then 2 BID (migraine prevention) T OPIRAMATE 39304784873 No Longer Active Jerica FUENTES Active TOPAMAX 50 MG ORAL TABLET take 1 tab po BID for migraines. 07/02 TOPIRAMATE 74972065684 No Longer Active Jerica FUENTES Active TOPAMAX 100 MG ORAL TABLET Take 1 tablet po bid TO PIRAMATE 90284116111 Active Carlton Hu MD Active TRIAMCINOLONE ACETONIDE 0.1 % EXTERNAL CREAM apply three roger es daily prn rash TRIAMCINOLONE ACETONIDE 71593435173 No Longer Active Carlton Hu MD Active PAXIL 40 MG ORAL TABLET take 1 tab po qday for depression 0 PAROXETINE HCL 72873368328 Active Perez Mora MD Active CHERATUSSIN AC 100-10 MG/5ML ORAL SYRUP 5ml po q6hr PRN Cough 20 13/04/14 GUAIFENESIN-CODEINE 01590623604 No Longer Active Carlton Hu MD Active MEDROL 4 MG ORAL TABLET THERAPY PACK 6 tabs on day 1, 5 tabs on day 2, 4 tabs on day 3, 3 tabs on day 4, 2 tabs on day 5, 1 tab on day 6 2013 METHYLPREDNISOLONE 93345630871 No Longer Active Perez Mora MD Active AZITHROMYCIN 250 MG ORAL TABLET 2 po qd x 1 day, then 1 po q d x 4 days AZITHROMYCIN 04098112461 No Longer Active Perez Ambriz MD Active PROPRANOLOL HCL 60 MG ORAL TABLET 1 PO Q D PROPRANOLOL HCL 46624820316 No Longer Active Perez Mora MD Activ e CHERATUSSIN AC 100-10 MG/5ML ORAL SYRUP take one tsp po Q 6h ours prn cough GUAIFENESIN-CODEINE 97105416477 No Longer Active Zia Mora MD Active AUGMENTIN 875-125 MG ORAL TABLET 1 tab by mouth twice daily with food AMOXICILLIN-POT CLAVULANATE 58050480895 No Longer Act nael Perez Mora MD Active CHERATUSSIN AC 100-10 MG/5ML ORAL SYRUP 1 tsp by mouth every 4 hours as needed for cough GUAIFENESIN-CODEINE 50577413825 No Longe r Active Hugo eRstrepo MD Active ACETAMINOPHEN-CODEINE #3 300-30 MG ORAL TABLET 1 PO Q 4-6 HRS FL N PAIN ACETAMINOPHEN-CODEINE 92794121115 No Longer Active Hugo Restrepo MD Active LEVAQUIN 500 MG ORAL TABLET take one po QD LEVO FLOXACIN 16479983925 No Longer Active Griffin HERNANDEZ Active PREDNISONE 20 MG ORAL TABLET Take 3 tabs daily for 3 d ays, 2 tabs daily for 3 days, 1 tab daily for 3 days, 1/2 tab daily for 3 days 11/07 PREDNISONE 34509307036 No Longer Active Carlton Hu MD Acti ve AVELOX 400 MG ORAL TABLET 1 tab by mouth daily MOXIFLOXACIN HCL 31577406984 No Longer Active Carlton Hu MD Active CHERATUSSIN AC 100-10 MG/5ML ORAL SYRUP 1 tsp by mouth every 4 hours as needed for cough GUAIFENESIN-CODEINE 46953334852 No Longe r Active Hugo Restrepo MD Active AVELOX 400 MG ORAL TABLET 1 tab by mouth daily MOXIFLOXACIN HCL 35048863511 No Longer Active Marcy De La Rosa MD PhD Active TERBINAFINE HCL 250 MG ORAL TABLET 1 qDay T ERBINAFINE HCL 02244925179 No Longer Active Marcy De La Rosa MD PhD Active CHERATUSSIN AC 100-10 MG/5ML ORAL SYRUP 1 tsp by mouth every 4 hours as needed for cough GUAIFENESIN-CODEINE 12189247225 No Longe r Active Marcy De La Rosa MD PhD Active AVELOX 400 MG ORAL TABLET 1 tab by mouth daily MOXIFLOXACIN HCL 39298616328 No Longer Active Marcy De La Rsoa MD PhD Active HYDROCODONE-ACETAMINOPHEN 5-325 MG ORAL TABLET 1 po q 6hr PRN co ugh HYDROCODONE-ACETAMINOPHEN 16975798884 No Longer Active Marcy De La Rosa MD PhD Active PREDNISONE 20 MG ORAL TABLET 2 tabs daily for 3 days, 1 tab daily for 3 days, 1/2 tab daily for 2 days PREDNISONE 95193292547 No Longer Active Carlton Hu MD Active CEFDINIR 300 MG ORAL CAPSULE by mouth twice a day 2011 CEFDINIR 11823918883 No Longer Active Carlton Hu MD Acti ve HYDROCHLOROTHIAZIDE 25 MG ORAL TABLET 1 TAB PO DAILY HYDROCHLOROTHIAZIDE 03272958295 Active Carlton Hu MD A ctive ACETAMINOPHEN-CODEINE #3 300-30 MG ORAL TABLET 1 tablet po q 4-6 hrs prn pain ACETAMINOPHEN-CODEINE 73714025103 No Longer Active Ridge Bess DO Active ZITHROMAX 250 MG ORAL TABLET 2 po today, then 1 po q days 2-5 20 03/07/07 AZITHROMYCIN 47619710467 No Longer Active Carlton Hu MD Active CHERATUSSIN AC 100-10 MG/5ML ORAL SYRUP take 1 tsp po q4-6 h ours prn cough GUAIFENESIN-CODEINE 89922714765 No Longer Active Jayden Hu MD Active ACETAMINOPHEN-CODEINE #3 300-30 MG ORAL TABLET 1 PO Q 4-6 HR PRN PAIN ACETAMINOPHEN-CODEINE 60905877062 No Longer Active Arnol Hu MD Active LORTAB 7.5-500 MG/15ML ORAL ELIXIR 7.5 ml po q 4 hour prn cough HYDROCODONE-ACETAMINOPHEN 63231876902 No Longer Active Carlton Hu MD Active PREDNISONE 20 MG ORAL TABLET 1 po bid 3 days, then 1 po q day 3 days PREDNISONE 16661755332 No Longer Active Carlton Hu MD Active CEFDINIR 300 MG ORAL CAPSULE by mouth twice a day 2011 CEFDINIR 25876155178 No Longer Active Carlton Hu MD Acti ve CEFDINIR 300 MG ORAL CAPSULE by mouth twice a day 2010 CEFDINIR 85071179509 No Longer Active Carlton Hu MD Acti ve CEFDINIR 300 MG ORAL CAPSULE by mouth twice a day 2010 CEFDINIR 55887318774 No Longer Active Carlton Hu MD Acti ve TESSALON PERLES 100 MG ORAL CAPSULE 1 tablet by mouth 3 times daily as needed for cough BENZONATATE 67342433769 No Longer Active Carlton Hu MD Active CEFDINIR 300 MG ORAL CAPSULE by mouth twice a day 2010 CEFDINIR 46906730187 No Longer Active Carlton Hu MD Acti ve ZITHROMAX Z-REYNA 250 MG ORAL TABLET 2 today, then 1 daily for 4 d ays AZITHROMYCIN 91302894541 No Longer Active Hugo Restrepo MD Active TESSALON PERLES 100 MG ORAL CAPSULE 1 tablet by mouth 3 times daily as needed for cough TESSALON PERLES 100 MG ORAL CAPSULE 20704 7 BENZONATATE Inactive PREDNISONE 20 MG ORAL TABLET 1 po bid 3 days, then 1 po q day 3 days PREDNISONE 20 MG ORAL TABLET 521445 PREDNISONE [place] ctive LORTAB 7.5-500 MG/15ML ORAL ELIXIR 7.5 [...] cough CHERATUSSIN AC 100-10 MG/5ML ORAL SYRUP 287866 GUAIFENESIN-CODEINE Inactive ACETAMINOPHEN-CODEINE #3 300-30 MG ORAL TABLET 1 tablet po q 4-6 hrs prn pain ACETAMINOPHEN-CODEINE #3 300-30 MG ORAL TABLET ACETAMINOPHEN-CODEINE Inactive HYDROCODONE-ACETAMINOPHEN 5-325 MG ORAL TABLET 1 po q 6hr PRN co ugh HYDROCODONE-ACETAMINOPHEN 5-325 MG ORAL TABLET 600077 HYDROCODONE-ACETAMINOPHEN Inactive AVELOX 400 MG ORAL TABLET 1 tab by mouth daily AVELOX 400 MG ORAL TABLET 758854 MOXIFLOXACIN HCL Inactive CHERATUSSIN AC 100-10 MG/5ML ORAL SYRUP 1 tsp by mouth every 4 hours as needed for cough CHERATUSSIN AC 100-10 MG/5ML ORAL SYRUP 9 09205 GUAIFENESIN-CODEINE Inactive TERBINAFINE HCL 250 MG ORAL TABLET 1 qDay 07/08 TERBINAFINE HCL 250 MG ORAL TABLET 909647 TERBINAFINE HCL Inactive CHERATUSSIN AC 100-10 MG/5ML ORAL SYRUP 1 tsp by mouth every 4 hours as needed for cough CHERATUSSIN AC 100-10 MG/5ML ORAL SYRUP 9 43972 GUAIFENESIN-CODEINE Inactive ACETAMINOPHEN-CODEINE #3 300-30 MG ORAL TABLET 1 PO Q 4-6 HRS FL N PAIN ACETAMINOPHEN-CODEINE #3 300-30 MG ORAL TABLET ACETAMINOPHEN-CODEINE Inactive CHERATUSSIN AC 100-10 MG/5ML ORAL SYRUP 1 tsp by mouth every 4 hours as needed for cough CHERATUSSIN AC 100-10 MG/5ML ORAL SYRUP 9 06611 GUAIFENESIN-CODEINE Inactive AUGMENTIN 875-125 MG ORAL TABLET 1 tab by mouth twice daily with food AUGMENTIN 875-125 MG ORAL TABLET 203247 AMOXICIL MADELINE-POT CLAVULANATE Inactive CHERATUSSIN AC 100-10 MG/5ML ORAL SYRUP take one tsp po Q 6h ours prn cough CHERATUSSIN AC 100-10 MG/5ML ORAL SYRUP 934768 GUAIFENESIN-CODEINE Inactive PROPRANOLOL HCL 60 MG ORAL TABLET 1 PO Q D PROPRANOLOL HCL 60 MG ORAL TABLET 002861 PROPRANOLOL HCL Inactive TOPAMAX 50 MG ORAL TABLET take 1 tab po BID for migraines. 07/02 TOPAMAX 50 MG ORAL TABLET 792438 TOPIRAMATE Inacti ve TOPAMAX 25 MG ORAL TABLET 1 qHS x 1 week, then 1 BID x 1 week, then 1 qAM and 2 qHS x 1 week, then 2 BID (migraine prevention) TOPAMAX 25 MG ORAL TABLET 611918 TOPIRAMATE Inactive LYRICA 75 MG ORAL CAPSULE TAKE 1 CAPSULE BY MOUTH TWICE DAILY LYRICA 75 MG ORAL CAPSULE PREGABALIN Inactive SYMBICORT 160-4.5 MCG/ACT INHALATION AEROSOL 2 puffs bid wit h rinse after SYMBICORT 160-4.5 MCG/ACT INHALATION AEROSOL BUDESONIDE- FORMOTEROL FUMARATE Inactive PROMETHAZINE-CODEINE 6.25-10 MG/5ML ORAL SYRUP 1 tsp b y mouth every 8 hours prn cough PROMETHAZINE-CODEINE 6.25-10 MG/ 5ML ORAL SYRUP 986924 PROMETHAZINE-CODEINE Inactive CYMBALTA 30 MG ORAL CAPSULE DELAYED RELEASE PARTICLES 1 cap by mouth daily CYMBALTA 30 MG ORAL CAPSULE DELAYED RELE ASE PARTICLES 748215 DULOXETINE HCL Inactive PREMARIN 0.625 MG ORAL TABLET TAKE 1 TAB BY MOUTH DAILY PREMARIN 0.625 MG ORAL TABLET ESTROGENS CONJUGATED Inactive CHERATUSSIN AC 100-10 MG/5ML ORAL SYRUP 1 tsp by mouth every 4 hours as needed for cough CHERATUSSIN AC 100-10 MG/5ML ORAL SYRUP 9 06382 GUAIFENESIN-CODEINE Inactive PROMETHAZINE-CODEINE 6.25-10 MG/5ML ORAL SYRUP 1 tsp b y mouth every 6 hours if needed for cough PROMETHAZINE-CODEINE 6.25-10 MG/5ML ORAL SYRUP 561646 PROMETHAZINE-CODEINE Inactive CHERATUSSIN AC 100-10 MG/5ML ORAL SYRUP 1 tsp by mouth every 4 hours as needed for cough CHERATUSSIN AC 100-10 MG/5ML ORAL SYRUP 9 63619 GUAIFENESIN-CODEINE Inactive FLUTICASONE PROPIONATE 50 MCG/ACT NASAL SUSPENSION 1 t o 2 sprays each nostril daily FLUTICASONE PROPIONATE 50 MCG/AC T NASAL SUSPENSION 8657851 FLUTICASONE PROPIONATE Inactive PREDNISONE 20 MG ORAL TABLET 3 tab PO qd x 2d, 2 tab P O qd x 2d, 1 tab PO qd x 2d, 1/2 tab PO qd x 2d PREDNISONE 20 MG ORAL TAB LET 308793 PREDNISONE Inactive LEVOFLOXACIN 500 MG ORAL TABLET 1 tab PO daily x 10 days LEVOFLOXACIN 500 MG ORAL TABLET 618767 LEVOFLOXACIN Inactive CYCLOBENZAPRINE HCL 10 MG ORAL TABLET 1 tablet by mouth BID prn had pain CYCLOBENZAPRINE HCL 10 MG ORAL TABLET 198162 CYCLOBENZAPRINE HCL Inactive ZOCOR 40 MG ORAL TABLET 1 tab by mouth daily 4 ZOCOR 40 MG ORAL TABLET 494165 SIMVASTATIN Inactive TUSSIONEX PENNKINETIC ER 10-8 MG/5ML [...] FLUTICASONE PROPIO EFE 50 MCG/ACT NASAL SUSPENSION 4453864 FLUTICASONE PROPIONATE Inactive TUSSIONEX PENNKINETIC ER 10-8 [...] three days PREDNISONE 20 MG ORAL TABLET 452203 PREDNIS ONE Inactive PROAIR HFA 108 (90 BASE) MCG/ACT INHALATION AEROSOL SO LUTION 2 puffs four times a day as needed PROAIR HFA 108 (90 B ASE) MCG/ACT INHALATION AEROSOL SOLUTION ALBUTEROL SULFATE Inactive ZITHROMAX Z-REYNA 250 MG ORAL TABLET 2 today, then 1 daily for 4 d ays ZITHROMAX Z-REYNA 250 MG ORAL TABLET 102020 AZITHROMYCIN Inactive CEFDINIR 300 MG ORAL CAPSULE by mouth twice a day 2010 CEFDINIR 300 MG ORAL CAPSULE 783988 CEFDINIR Inactive CEFDINIR 300 MG ORAL CAPSULE [...] 2-5 03/07/07 ZITHROMAX 250 MG ORAL TABLET 329655 AZITHROMYCIN [place] ctive CEFDINIR 300 MG ORAL CAPSULE by mouth twice a day 2011 CEFDINIR 300 MG ORAL CAPSULE 20020704 CEFDINIR Inactive PREDNISONE 20 MG ORAL TABLET 2 tabs daily for 3 days, 1 tab daily for 3 days, 1/2 tab daily for 2 days PREDNISONE 20 MG ORAL T ABLET 949998 PREDNISONE Inactive AVELOX 400 MG ORAL TABLET 1 tab by mouth daily AVELOX 400 MG ORAL TABLET 538301 MOXIFLOXACIN HCL Inactive AVELOX 400 MG ORAL TABLET 1 tab by mouth daily AVELOX 400 MG ORAL TABLET 616424 MOXIFLOXACIN HCL Inactive PREDNISONE 20 MG ORAL TABLET Take 3 tabs daily for 3 d ays, 2 tabs daily for 3 days, 1 tab daily for 3 days, 1/2 tab daily for 3 days 11/07 PREDNISONE 20 MG ORAL TABLET 625650 PREDNISONE Inactive LEVAQUIN 500 MG ORAL TABLET take one po QD LEVAQUIN 500 MG ORAL TABLET 677553 LEVOFLOXACIN Inactive AZITHROMYCIN 250 MG ORAL TABLET 2 po qd x 1 day, then 1 po q d x 4 days AZITHROMYCIN 250 MG ORAL TABLET 712763 AZITHROMY GIOVANNI Inactive MEDROL 4 MG ORAL TABLET THERAPY PACK 6 tabs on day 1, 5 tabs on day 2, 4 tabs on day 3, 3 tabs on day 4, 2 tabs on day 5, 1 tab on day 6 2013 MEDROL 4 MG ORAL TABLET THERAPY PACK 468902 METHYLPREDNISOLONE [place] ctive CHERATUSSIN AC 100-10 MG/5ML ORAL SYRUP 5ml po q6hr PRN Cough 20 13/04/14 CHERATUSSIN AC 100-10 MG/5ML ORAL SYRUP 288191 GUAIFENE SIN-CODEINE Inactive TRIAMCINOLONE ACETONIDE 0.1 % EXTERNAL CREAM apply three roger es daily prn rash TRIAMCINOLONE ACETONIDE 0.1 % EXTERNAL CREAM 101 4314 TRIAMCINOLONE ACETONIDE Inactive AZITHROMYCIN 250 MG ORAL TABLET 2 po qd x 1 day, then 1 po q d x 4 days AZITHROMYCIN 250 MG ORAL TABLET 870214 AZITHROMY GIOVANNI Inactive MEDROL 4 MG ORAL TABLET THERAPY PACK 6 pills x 1 day, then 5 pills x 1 day then 4 pills x 1 day, then 3 pills x 1 day, then 2 pills x 1 day, then 1 pill x 1 day, then stop MEDROL 4 MG ORAL TABLET THERAPY PACK 062143 METHYLPREDNISOLONE Inactive AMOXICILLIN 500 MG ORAL CAPSULE 1 tab by mouth 3 times daily x 10 days AMOXICILLIN 500 MG ORAL CAPSULE 336950 AMOXICILL IN Inactive AMOXICILLIN 500 MG ORAL CAPSULE 1 tab by mouth 3 times daily x 10 days AMOXICILLIN 500 MG ORAL CAPSULE 923606 AMOXICILL IN Inactive ZITHROMAX 250 MG ORAL TABLET 2 po today, then 1 po q days 2-5 20 12/08/14 ZITHROMAX 250 MG ORAL TABLET 735168 AZITHROMYCIN [place] ctive AUGMENTIN 875-125 MG ORAL TABLET 1 po BID x 10 days 20 13/01/20 AUGMENTIN 875-125 MG ORAL TABLET 050604 AMOXICILLIN-POT CLAVULANATE Inactive ZITHROMAX Z-REYNA 250 MG ORAL TABLET 2 today, then 1 daily for 4 d ays ZITHROMAX Z-REYNA 250 MG ORAL TABLET 288652 AZITHROMYCIN Inactive ZITHROMAX 250 MG ORAL TABLET 2 po today, then 1 po q days 2-5 20 14/03/21 ZITHROMAX 250 MG ORAL TABLET 468660 AZITHROMYCIN [place] ctive ZITHROMAX Z-REYNA 250 MG ORAL TABLET 2 today, then 1 daily for 4 d ays ZITHROMAX Z-REYNA 250 MG ORAL TABLET 802369 AZITHROMYCIN Inactive CEFDINIR 300 MG ORAL CAPSULE 1 po BID x 10 days 06/21 CEFDINIR 300 MG ORAL CAPSULE 20020704 CEFDINIR Inactive ZITHROMAX 250 MG ORAL TABLET 2 po today, then 1 po q days 2-5 20 13/08/10 ZITHROMAX 250 MG ORAL TABLET 532046 AZITHROMYCIN [place] ctive LEVAQUIN 500 MG ORAL TABLET 1 tablet by mouth daily 13/09/24 LEVAQUIN 500 MG ORAL TABLET 19971102 LEVOFLOXACIN Inactive SINGULAIR 10 MG ORAL TABLET 1 po qday for allergies 20 14/01/12 SINGULAIR 10 MG ORAL TABLET 20010504 MONTELUKAST SODIUM Inactive AMOXICILLIN 500 MG ORAL CAPSULE 2 po BID x 10 days 201 09/29/08 AMOXICILLIN 500 MG ORAL CAPSULE 759496 AMOXICILLIN Inactive PREDNISONE 20 MG ORAL TABLET 2 tabs daily for 3 days, 1 tab daily for 3 days, 1/2 tab daily for 2 days PREDNISONE 20 MG ORAL T ABLET 608559 PREDNISONE Inactive ZITHROMAX Z-REYNA 250 MG ORAL TABLET 2 today, then 1 daily for 4 d ays ZITHROMAX Z-REYNA 250 MG ORAL TABLET 493869 AZITHROMYCIN Inactive PREDNISONE 20 MG ORAL TABLET 2 tabs daily for 3 days, 1 tab daily for 3 days, 1/2 tab daily for 2 days PREDNISONE 20 MG ORAL T ABLET 243592 PREDNISONE Inactive ZITHROMAX 250 MG ORAL TABLET 2 po today, then 1 po q days 2-5 20 14/09/04 ZITHROMAX 250 MG ORAL TABLET 884566 AZITHROMYCIN Greer ctive AMOXICILLIN 500 MG ORAL CAPSULE 1 cap by mouth three times a day AMOXICILLIN 500 MG ORAL CAPSULE 832129 AMOXICILLIN Inactive TERBINAFINE HCL 250 MG ORAL TABLET 1 qDay for nail fungus 7 TERBINAFINE HCL 250 MG ORAL TABLET 620393 TERBINAFINE HCL Inact nael AUGMENTIN 875-125 MG ORAL TABLET 1 po BID x 10 days 16/03/22 AUGMENTIN 875-125 MG ORAL TABLET 457226 AMOXICILLIN-POT CLAVULANATE Inactive PREDNISONE 20 MG ORAL TABLET 2 po qd x 5 days PREDNISONE 20 MG ORAL TABLET 026518 PREDNISONE Inactive Vital Signs Date Name Value [...] - Chem istry sodium, serum 142 mmol/L 222-123 9757/07/17 potassium, serum 4.2 mmol/L 3.5-5.2 chloride, serum 106 mmol/L 98-107 carbon dioxide, venous blood 29.9 mmol/L 21.0-32 .0 blood glucose 108 mg/dL 65-110 calcium, serum 9.1 mg/dL 8.5-10.1 urea nitrogen, blood 11 mg/dL 7-18 creatinine, serum 0.81 mg/dL 0.60-1.30 sodium, serum 139 mmol/L 211-012 4470/03/19 potassium, serum 3.6 mmol/L 3.5-5.2 chloride, serum 100 mmol/L 98-107 carbon dioxide, venous blood 30.3 mmol/L 21.0-32 .0 blood glucose 101 mg/dL 65-110 calcium, serum 9.4 mg/dL 8.5-10.1 urea nitrogen, blood 10 mg/dL 7-18 creatinine, serum 0.96 mg/dL 0.60-1.30 Encounters Code Encounter Date Provider Facility CPT-13330 Level 3 Est. Patient 11:34:49 NURSING HOME ASSISTANT ADMINISTRATOR Perez Mora MD [facility] CPT-00418 Level 4 Est. Patient 09:51:32 NURSING HOME ASSISTANT ADMINISTRATOR Carlton rich MD [facility] CPT-85938 Level 3 Est. Patient 10:26:00 NURSING HOME ASSISTANT ADMINISTRATOR Elise stephenson APRN [facility] CPT-13422 Level 3 Est. Patient 13:35:41 NURSING HOME ASSISTANT ADMINISTRATOR Carlton rich MD [facility] CPT-50733 Level 3 Est. Patient 10:03:52 NURSING HOME ASSISTANT ADMINISTRATOR Carlton rich MD [facility] CPT-66890 Level 3 Est. Patient 12:17:50 CDT Hugo Restrepo MD [facility] CPT-85050 Level 3 Est. Patient 13:42:38 CDT Elise Are [facility] CPT-11280 Level 3 Est. Patient 13:23:51 CDT Diya cobian [facility] CPT-27495 Level 3 Est. Patient 14:22:19 NURSING HOME ASSISTANT ADMINISTRATOR Diya Mariana cobian [facility] CPT-23614 Level 3 Est. Patient 10:11:46 CDT Carlton rich MD [facility] CPT-21505 Level 3 Est. Patient 17:29:43 CDT Elise Are [facility] CPT-62706 Level 3 Est. Patient 11:58:06 CDT Elise Are [facility] CPT-15440 Level 4 Est. Patient 14:36:51 CDT Carlton rich MD [facility] CPT-54390 Level 3 Est. Patient 18:16:00 NURSING HOME ASSISTANT ADMINISTRATOR Blaine HERNANDEZ [facility] CPT-77174 Level 3 Est. Patient 09:45:49 NURSING HOME ASSISTANT ADMINISTRATOR Carlton rich MD [facility] CPT-64573 Level 3 Est. Patient 13:19:20 CDT Carlton rich MD [facility] CPT-96909 Level 3 Est. Patient 13:06:43 CDT Ridge tam DO [facility] CPT-80906 Level 3 Est. Patient 10:03:07 CDT Perez Mora MD [facility] CPT-03937 Level 3 Est. Patient 19:50:35 NURSING HOME ASSISTANT ADMINISTRATOR Carlton rich MD [facility] CPT-31225 Level 4 Est. Patient 18:05:01 NURSING HOME ASSISTANT ADMINISTRATOR Carlton rich MD [facility] CPT-86139 Level 3 Est. Patient 10:45:55 NURSING HOME ASSISTANT ADMINISTRATOR Hugo Restrepo MD [facility]-65711 Level 3 Est. Patient 14:12:[address] [facility]-97877 Level 3 Est. Patient 17:37:24 CDT Carlton rich MD [facility]-19196 Level 3 Est. Patient 16:51:54 CDT Carlton rich MD [facility]-97234 Level 3 Est. Patient 12:18:11 CDT Hugo Restrepo MD [facility]-08246 Level 3 Est. Patient 11:30:25 CDT Marcy crisostomo MD PhD [facility]-39883 Level 3 Est. Patient 12:00:47 NURSING HOME ASSISTANT ADMINISTRATOR Carlton rich MD [facility]-94306 Level 3 Est. Patient 16:31:06 NURSING HOME ASSISTANT ADMINISTRATOR Carlton rich MD [facility] CPT-61039 Level 3 Est. Patient 16:23:24 NURSING HOME ASSISTANT ADMINISTRATOR Ridge tam [facility]-60068 Level 3 Est. Patient 12:34:12 CDT Carlton rich MD [facility]-05400 Level 2 Est. Patient 15:43:33 CDT Robi armstrong MD [facility]-22809 Level 4 Est. Patient 14:04:44 CDT Carlton rich MD [facility]-63226 Level 3 Est. Patient 05:47:59 CDT Ridge tam [facility]-32850 Level 3 Est. Patient 13:12:53 NURSING HOME ASSISTANT ADMINISTRATOR Carlton rich MD [facility]-43736 Level 3 Est. Patient 14:26:53 CDT Hugo Restrepo MD [facility] Procedures Code Procedure Name Date Entry Date Standard Desc ription CPT-000 Give Appropriate Flu Vaccine 14:14:31 CDT 2 CPT-J1040 Depo Medrol 80 mg (Methyl Prednisolone A cetate) 10:42:44 CDT CPT-J1100 Decadron 8mg (Dexamethasone) 10:42:44 CDT 2 CPT-J0696 Rocephin 1gm Inj Solr 14:32:13 CDT CPT-J1020 Depo Medrol 60 mg (Methyl Prednisolone A cetate) 14:32:13 CDT CPT-J1100 Decadron 6mg (Dexamethasone) 14:32:13 CDT 2 CPT-64678 Hip bilat min 2V w AP pelvis 13:16:20 CDT 2 CPT-64594 Pelvis only 13:07:33 CDT CPT-84140 Spec Collection and Handling Fee 11:25:12 C DT CPT-80132 Fluzone Quadrivalent Intramuscular Suspe nsion 0.5 ML 14:31:55 CDT CPT-24987 Abx/Therapy Injection 13:28:47 NURSING HOME ASSISTANT ADMINISTRATOR CPT-J2930 Solu Medrol 125 mg (Methyl Prednisolone Sodium Succinate) 12:00:47 NURSING HOME ASSISTANT ADMINISTRATOR CPT-16940 Venipuncture Draw Fee 11:33:31 CDT CPT-89917 EKG Trac and Interp 11:21:09 CDT CPT-20430 Chest 2V Frontal and Lat 11:21:09 CDT 12/15 CPT-33695 Venipuncture Draw Fee 08:02:34 CDT CPT-74375 Chest 2V Frontal and Lat 05:47:59 CDT 06/05
--- OUTSIDE RECORDS SUMMARY | 2019-10-08 08:05 | XMS REPORT | Clinical Summary ---
Author Author Caitlin, Juliana Martinez Organization [facility] Address Unknown Phone Unavailable Allergies, Adverse [...] po qd x 5 days P REDNISONE [id number] No Longer Active Perez Mora MD Active PROAIR HFA 108 (90 BASE) MCG/ACT INHALATION AEROSOL SO LUTION 2 puffs four times a day as needed ALBUTEROL SULFATE 21844155694 No Long er Active Becky FUENTES Active ASPIRIN 81 MG ORAL TABLET 1 po qd ASPIRIN 99620795144 Active Carlton Hu MD Active PREDNISONE 20 MG ORAL TABLET 1 tab twice daily for 3 d ay, then one daily for three days PREDNISONE 26475221855 No Longer Active Carlton Hu MD Active AUGMENTIN 875-125 MG ORAL TABLET 1 po BID x 10 days 20 16/03/22 AMOXICILLIN-POT CLAVULANATE 44961713595 No Longer Active Elise Garcia APRN Active TERBINAFINE HCL 250 MG ORAL TABLET 1 qDay for nail fungus 7 TERBINAFINE HCL 57467370821 No Longer Active Carlton Hu MD A ctive TUSSIONEX PENNKINETIC ER 10-8 MG/5ML ORAL SUSPENSION E XTENDED RELEASE 5ml po q12hr PRN Cough HYDROCOD POLST-CHLORPHEN POLST 27758843901 Active Carlton Hu MD Active AMOXICILLIN 500 MG ORAL CAPSULE 1 cap by mouth three times a day AMOXICILLIN 77093431518 No Longer Active Carlton Hu MD Active ELMIRON 100 MG ORAL CAPSULE 2 tablets in the am and 1 tablet at hs PENTOSAN POLYSULFATE SODIUM 07345990006 No Longer Active Robert jade Hu MD Active MUCINEX D 60-600 MG ORAL TABLET EXTENDED RELEASE 12 HOUR 1 t ab po q am PSEUDOEPHEDRINE-GUAIFENESIN 61492802959 No Longer Act nael Carlton Hu MD Active MUCINEX DM MAXIMUM STRENGTH 60-1200 MG ORAL TABLET EXT ENDED RELEASE 12 HOUR 1 tab po q am DEXTROMETHORPHAN-GUAIFENESIN 20735733146 No Longer Active Carlton Hu MD Active TUSSIONEX PENNKINETIC ER 10-8 MG/5ML ORAL SUSPENSION E XTENDED RELEASE 5ml po q12hr PRN Cough HYDROCOD POLST-CHLORPHEN POLST 5 7989899757 No Longer Active Carlton Hu MD Active POTASSIUM CHLORIDE ER 20 MEQ ORAL TABLET EXTENDED RELE ASE Take 1 by mouth 4 times daily for 7 days POTASSIUM CHLORIDE 87155963463 No Longer Active Carlton Hu MD Active ZITHROMAX 250 MG ORAL TABLET 2 po today, then 1 po q days 2-5 20 14/09/04 AZITHROMYCIN 24843011210 No Longer Active Elise Garcia APRN Active TUSSIONEX PENNKINETIC ER 10-8 MG/5ML ORAL SUSPENSION E XTENDED RELEASE 5 ml twice a day as needed for cough HYDROCOD POLST-CHLORPH EN POLST 88672205136 No Longer Active Elise Garcia APRN Active MONTELUKAST SODIUM 10 MG ORAL TABLET 1 po daily for Allergy MONTELUKAST SODIUM 86319349042 Active Carlton Hu MD Ac tive TUSSIONEX PENNKINETIC ER 10-8 MG/5ML ORAL SUSPENSION E XTENDED RELEASE 5ml po q12hr PRN Cough HYDROCOD POLST-CHLORPHEN POLST 5 9775190317 No Longer Active Hugo Restrepo MD Active GABAPENTIN 100 MG ORAL CAPSULE 1 po BID for fibromyalgia GABAPENTIN 81368357576 Active Carlton Hu MD Active LYRICA 100 MG ORAL CAPSULE Take 1 tab po BID for fibromyalgia 20 11/08/21 PREGABALIN 25676243665 No Longer Active Elise Garcia APRN A ctive PREDNISONE 20 MG ORAL TABLET 2 tabs daily for 3 days, 1 tab daily for 3 days, 1/2 tab daily for 2 days PREDNISONE 68945509998 No Longer Active Diya De Guzman APRN Active TUSSIONEX PENNKINETIC ER 10-8 MG/5ML ORAL SUSPENSION E XTENDED RELEASE 5 mL PO q 12 hrs PRN cough HYDROCOD POLST-CHLORPHEN POLST 418716 50190 No Longer Active Jillina Gege KHAN Active FLUTICASONE PROPIONATE 50 MCG/ACT NASAL SUSPENSION 2 s prays each nostril daily until bottle is empty FLUTICASONE PROPIONATE 446118970 99 No Longer Active Diya De Guzman APRN Active ASMANEX 60 METERED DOSES 220 MCG/INH INHALATION AEROSO L POWDER BREATH ACTIVATED 1 puff bid with rinse after MOMETASONE FUROATE 2368334 4102 No Longer Active Diya De Guzman APRN Active ZITHROMAX Z-REYNA 250 MG ORAL TABLET 2 today, then 1 daily for 4 d ays AZITHROMYCIN 75340784160 No Longer Active Elise Garcia APRN Active TUSSIONEX PENNKINETIC ER 10-8 MG/5ML ORAL SUSPENSION E XTENDED RELEASE 5ml po q12hr PRN Cough HYDROCOD POLST-CHLORPHEN POLST 5 1470692089 No Longer Active Elise Garcia APRN Active PREDNISONE 20 MG ORAL TABLET 2 tabs daily for 3 days, 1 tab daily for 3 days, 1/2 tab daily for 2 days PREDNISONE 21325103042 No Longer Active Diya De Guzman APRN Active AMOXICILLIN 500 MG ORAL CAPSULE 2 po BID x 10 days 201 09/29/08 AMOXICILLIN 14034125779 No Longer Active Diya De Guzman APRN Act nael SINGULAIR 10 MG ORAL TABLET 1 po qday for allergies 20 14/01/12 MONTELUKAST SODIUM 57157065876 No Longer Active Carlton Hu MD Active LEVAQUIN 500 MG ORAL TABLET 1 tablet by mouth daily 20 13/09/24 LEVOFLOXACIN 97599287030 No Longer Active Carlton Hu MD Acti ve FLUTICASONE PROPIONATE 50 MCG/ACT NASAL SUSPENSION 2 s prays each nostril daily for 2 weeks, then 1 spray each nostril daily. FLUTICASONE PROPIONATE 32122959196 Active Elise Garcia APRN Active ZITHROMAX 250 MG ORAL TABLET 2 po today, then 1 po q days 2-5 20 13/08/10 AZITHROMYCIN 84794889827 No Longer Active Elise Garcia APRN Active XANAX 0.5 MG ORAL TABLET one tablet by mouth daily prn anxiety 2015 ALPRAZOLAM 82025951403 Active Carlton Hu MD Active CYMBALTA 30 MG ORAL CAPSULE DELAYED RELEASE PARTICLES 1 cap by mouth daily for depression DULOXETINE HCL 09074088814 Active Carlton beltrán MD Active CEFDINIR 300 MG ORAL CAPSULE 1 po BID x 10 days CEFDINIR 74593985030 No Longer Active Carlton Hu MD Active ZOCOR 40 MG ORAL TABLET 1 tab by mouth daily SI MVASTATIN 18645249444 No Longer Active Carlton Hu MD Active CYCLOBENZAPRINE HCL 10 MG ORAL TABLET 1 tablet by mouth BID prn had pain CYCLOBENZAPRINE HCL 98296807423 No Longer Active Jayden Hu MD Active LEVOFLOXACIN 500 MG ORAL TABLET 1 tab PO daily x 10 days LEVOFLOXACIN 79766735653 No Longer Active Carlton Hu MD Acti ve PREDNISONE 20 MG ORAL TABLET 3 tab PO qd x 2d, 2 tab P O qd x 2d, 1 tab PO qd x 2d, 1/2 tab PO qd x 2d PREDNISONE 39458662220 No Lo nger Active Carlton Hu MD Active FLUTICASONE PROPIONATE 50 MCG/ACT NASAL SUSPENSION 1 t o 2 sprays each nostril daily FLUTICASONE PROPIONATE 66768026923 No Longer Ac tive Blaine HERNANDEZ Active CHERATUSSIN AC 100-10 MG/5ML ORAL SYRUP 1 tsp by mouth every 4 hours as needed for cough GUAIFENESIN-CODEINE 58437372826 No Longe r Active Blaine HERNANDEZ Active PROMETHAZINE-CODEINE 6.25-10 MG/5ML ORAL SYRUP 1 tsp b y mouth every 6 hours if needed for cough PROMETHAZINE-CODEINE 31620637190 No Longer Active Blaine HERNANDEZ Active CHERATUSSIN AC 100-10 MG/5ML ORAL SYRUP 1 tsp by mouth every 4 hours as needed for cough GUAIFENESIN-CODEINE 59976345089 No Longe r Active Blaine HERNANDEZ Active ZITHROMAX Z-REYNA 250 MG ORAL TABLET 2 today, then 1 daily for 4 d ays AZITHROMYCIN 43312968321 No Longer Active Columba Raida Act nael ZITHROMAX 250 MG ORAL TABLET 2 po today, then 1 po q days 2-5 20 14/03/21 AZITHROMYCIN 45893785532 No Longer Active Carlton Hu MD Active ZITHROMAX Z-REYNA 250 MG ORAL TABLET 2 today, then 1 daily for 4 d ays AZITHROMYCIN 35682114414 No Longer Active Columba Raida Act nael AUGMENTIN 875-125 MG ORAL TABLET 1 po BID x 10 days 13/01/20 AMOXICILLIN-POT CLAVULANATE 91412938291 No Longer Active Diya De Guzman APRN Active ZITHROMAX 250 MG ORAL TABLET 2 po today, then 1 po q days 2-5 20 12/08/14 AZITHROMYCIN 04868089296 No Longer Active Carlton Hu MD Active TRAMADOL HCL 50 MG ORAL TABLET 1 po tid with ES Tylenol TRAMADOL HCL 28528785128 Active Carlton Hu MD Active PREMARIN 0.625 MG ORAL TABLET TAKE 1 TAB BY MOUTH DAILY ESTROGENS CONJUGATED 22656825615 No Longer Active Ridge Bess DO A ctive CYMBALTA 30 MG ORAL CAPSULE DELAYED RELEASE PARTICLES 1 cap by mouth daily DULOXETINE HCL 86359850000 No Longer Active Ridge tam DO Active AMOXICILLIN 500 MG ORAL CAPSULE 1 tab by mouth 3 times daily x 10 days AMOXICILLIN 28072898945 No Longer Active Carlton bustamante MD Active AMOXICILLIN 500 MG ORAL CAPSULE 1 tab by mouth 3 times daily x 10 days AMOXICILLIN 91927329808 No Longer Active Carlton bustamante MD Active PROMETHAZINE-CODEINE 6.25-10 MG/5ML ORAL SYRUP 1 tsp b y mouth every 8 hours prn cough PROMETHAZINE-CODEINE 69455712250 No Longer Acti ve Carlton Hu MD Active MEDROL 4 MG ORAL TABLET THERAPY PACK 6 pills x 1 day, then 5 pills x 1 day then 4 pills x 1 day, then 3 pills x 1 day, then 2 pills x 1 day, then 1 pill x 1 day, then stop METHYLPREDNISOLONE 92422278672 No Long er Active Perez Mora MD Active AZITHROMYCIN 250 MG ORAL TABLET 2 po qd x 1 day, then 1 po q d x 4 days AZITHROMYCIN 71057941493 No Longer Active Perez Ambriz MD Active SYMBICORT 160-4.5 MCG/ACT INHALATION AEROSOL 2 puffs bid wit h rinse after BUDESONIDE-FORMOTEROL FUMARATE 86278073349 N o Longer Active Perez Mora MD Active LYRICA 75 MG ORAL CAPSULE TAKE 1 CAPSULE BY MOUTH TWICE DAILY PREGABALIN 19695555296 No Longer Active Carlton Hu MD Acti ve TOPAMAX 25 MG ORAL TABLET 1 qHS x 1 week, then 1 BID x 1 week, then 1 qAM and 2 qHS x 1 week, then 2 BID (migraine prevention) T OPIRAMATE 04006223585 No Longer Active Jerica FUENTES Active TOPAMAX 50 MG ORAL TABLET take 1 tab po BID for migraines. 07/02 TOPIRAMATE 05209250810 No Longer Active Jerica FUENTES Active TOPAMAX 100 MG ORAL TABLET Take 1 tablet po bid TO PIRAMATE 56771969526 Active Carlton Hu MD Active TRIAMCINOLONE ACETONIDE 0.1 % EXTERNAL CREAM apply three roger es daily prn rash TRIAMCINOLONE ACETONIDE 55779121239 No Longer Active Carlton Hu MD Active PAXIL 40 MG ORAL TABLET take 1 tab po qday for depression 0 PAROXETINE HCL 82197444055 Active Perez Mora MD Active CHERATUSSIN AC 100-10 MG/5ML ORAL SYRUP 5ml po q6hr PRN Cough 20 13/04/14 GUAIFENESIN-CODEINE 51380450795 No Longer Active Carlton Hu MD Active MEDROL 4 MG ORAL TABLET THERAPY PACK 6 tabs on day 1, 5 tabs on day 2, 4 tabs on day 3, 3 tabs on day 4, 2 tabs on day 5, 1 tab on day 6 2013 METHYLPREDNISOLONE 14522875532 No Longer Active Perez Mora MD Active AZITHROMYCIN 250 MG ORAL TABLET 2 po qd x 1 day, then 1 po q d x 4 days AZITHROMYCIN 41248411955 No Longer Active Perez Ambriz MD Active PROPRANOLOL HCL 60 MG ORAL TABLET 1 PO Q D PROPRANOLOL HCL 02330050931 No Longer Active Perez Mora MD Activ e CHERATUSSIN AC 100-10 MG/5ML ORAL SYRUP take one tsp po Q 6h ours prn cough GUAIFENESIN-CODEINE 31876446209 No Longer Active Zia Mora MD Active AUGMENTIN 875-125 MG ORAL TABLET 1 tab by mouth twice daily with food AMOXICILLIN-POT CLAVULANATE 89054645840 No Longer Act nael Perez Mora MD Active CHERATUSSIN AC 100-10 MG/5ML ORAL SYRUP 1 tsp by mouth every 4 hours as needed for cough GUAIFENESIN-CODEINE 37621771905 No Longe r Active Hugo Restrepo MD Active ACETAMINOPHEN-CODEINE #3 300-30 MG ORAL TABLET 1 PO Q 4-6 HRS OR N PAIN ACETAMINOPHEN-CODEINE 45562158459 No Longer Active Hugo Restrepo MD Active LEVAQUIN 500 MG ORAL TABLET take one po QD LEVO FLOXACIN 91582069218 No Longer Active Griffin HERNANDEZ Active PREDNISONE 20 MG ORAL TABLET Take 3 tabs daily for 3 d ays, 2 tabs daily for 3 days, 1 tab daily for 3 days, 1/2 tab daily for 3 days 11/07 PREDNISONE 34613530791 No Longer Active Carlton Hu MD Acti ve AVELOX 400 MG ORAL TABLET 1 tab by mouth daily MOXIFLOXACIN HCL 85924807888 No Longer Active Carlton Hu MD Active CHERATUSSIN AC 100-10 MG/5ML ORAL SYRUP 1 tsp by mouth every 4 hours as needed for cough GUAIFENESIN-CODEINE 22630350590 No Longe r Active Hugo Restrepo MD Active AVELOX 400 MG ORAL TABLET 1 tab by mouth daily MOXIFLOXACIN HCL 91181224742 No Longer Active Marcy De La Rosa MD PhD Active TERBINAFINE HCL 250 MG ORAL TABLET 1 qDay T ERBINAFINE HCL 37897390877 No Longer Active Marcy De La Rosa MD PhD Active CHERATUSSIN AC 100-10 MG/5ML ORAL SYRUP 1 tsp by mouth every 4 hours as needed for cough GUAIFENESIN-CODEINE 11205719714 No Longe r Active Marcy De La Rosa MD PhD Active AVELOX 400 MG ORAL TABLET 1 tab by mouth daily MOXIFLOXACIN HCL 62690177725 No Longer Active Marcy De La Rosa MD PhD Active HYDROCODONE-ACETAMINOPHEN 5-325 MG ORAL TABLET 1 po q 6hr PRN co ugh HYDROCODONE-ACETAMINOPHEN 45174641821 No Longer Active Marcy De La Rosa MD PhD Active PREDNISONE 20 MG ORAL TABLET 2 tabs daily for 3 days, 1 tab daily for 3 days, 1/2 tab daily for 2 days PREDNISONE 41864047905 No Longer Active Carlton Hu MD Active CEFDINIR 300 MG ORAL CAPSULE by mouth twice a day 2011 CEFDINIR 32417609800 No Longer Active Carlton Hu MD Acti ve HYDROCHLOROTHIAZIDE 25 MG ORAL TABLET 1 TAB PO DAILY HYDROCHLOROTHIAZIDE 30414437741 Active Carlton Hu MD A ctive ACETAMINOPHEN-CODEINE #3 300-30 MG ORAL TABLET 1 tablet po q 4-6 hrs prn pain ACETAMINOPHEN-CODEINE 32537826563 No Longer Active Ridge Bess DO Active ZITHROMAX 250 MG ORAL TABLET 2 po today, then 1 po q days 2-5 20 03/07/07 AZITHROMYCIN 85297787873 No Longer Active Carlton Hu MD Active CHERATUSSIN AC 100-10 MG/5ML ORAL SYRUP take 1 tsp po q4-6 h ours prn cough GUAIFENESIN-CODEINE 07509620268 No Longer Active Jayden Hu MD Active ACETAMINOPHEN-CODEINE #3 300-30 MG ORAL TABLET 1 PO Q 4-6 HR PRN PAIN ACETAMINOPHEN-CODEINE 20724829746 No Longer Active Arnol Hu MD Active LORTAB 7.5-500 MG/15ML ORAL ELIXIR 7.5 ml po q 4 hour prn cough HYDROCODONE-ACETAMINOPHEN 73592941370 No Longer Active Carlton Hu MD Active PREDNISONE 20 MG ORAL TABLET 1 po bid 3 days, then 1 po q day 3 days PREDNISONE 98725645025 No Longer Active Carlton Hu MD Active CEFDINIR 300 MG ORAL CAPSULE by mouth twice a day 2011 CEFDINIR 47227461044 No Longer Active Carlton Hu MD Acti ve CEFDINIR 300 MG ORAL CAPSULE by mouth twice a day 2010 CEFDINIR 22127984435 No Longer Active Carlton Hu MD Acti ve CEFDINIR 300 MG ORAL CAPSULE by mouth twice a day 2010 CEFDINIR 11672254981 No Longer Active Carlton Hu MD Acti ve TESSALON PERLES 100 MG ORAL CAPSULE 1 tablet by mouth 3 times daily as needed for cough BENZONATATE 80560815566 No Longer Active Carlton Hu MD Active CEFDINIR 300 MG ORAL CAPSULE by mouth twice a day 2010 CEFDINIR 38177223881 No Longer Active Carlton Hu MD Acti ve ZITHROMAX Z-REYNA 250 MG ORAL TABLET 2 today, then 1 daily for 4 d ays AZITHROMYCIN 64125158084 No Longer Active Hugo Restrepo MD Active TESSALON PERLES 100 MG ORAL CAPSULE 1 tablet by mouth 3 times daily as needed for cough TESSALON PERLES 100 MG ORAL CAPSULE 16231 7 BENZONATATE Inactive PREDNISONE 20 MG ORAL TABLET 1 po bid 3 days, then 1 po q day 3 days PREDNISONE 20 MG ORAL TABLET 851874 PREDNISONE Greer ctive LORTAB 7.5-500 MG/15ML ORAL ELIXIR 7.5 [...] cough CHERATUSSIN AC 100-10 MG/5ML ORAL SYRUP 441496 GUAIFENESIN-CODEINE Inactive ACETAMINOPHEN-CODEINE #3 300-30 MG ORAL TABLET 1 tablet po q 4-6 hrs prn pain ACETAMINOPHEN-CODEINE #3 300-30 MG ORAL TABLET ACETAMINOPHEN-CODEINE Inactive HYDROCODONE-ACETAMINOPHEN 5-325 MG ORAL TABLET 1 po q 6hr PRN co ugh HYDROCODONE-ACETAMINOPHEN 5-325 MG ORAL TABLET 255172 HYDROCODONE-ACETAMINOPHEN Inactive AVELOX 400 MG ORAL TABLET 1 tab by mouth daily AVELOX 400 MG ORAL TABLET 945860 MOXIFLOXACIN HCL Inactive CHERATUSSIN AC 100-10 MG/5ML ORAL SYRUP 1 tsp by mouth every 4 hours as needed for cough CHERATUSSIN AC 100-10 MG/5ML ORAL SYRUP 9 67922 GUAIFENESIN-CODEINE Inactive TERBINAFINE HCL 250 MG ORAL TABLET 1 qDay 07/08 TERBINAFINE HCL 250 MG ORAL TABLET 340528 TERBINAFINE HCL Inactive CHERATUSSIN AC 100-10 MG/5ML ORAL SYRUP 1 tsp by mouth every 4 hours as needed for cough CHERATUSSIN AC 100-10 MG/5ML ORAL SYRUP 9 89619 GUAIFENESIN-CODEINE Inactive ACETAMINOPHEN-CODEINE #3 300-30 MG ORAL TABLET 1 PO Q 4-6 HRS OR N PAIN ACETAMINOPHEN-CODEINE #3 300-30 MG ORAL TABLET ACETAMINOPHEN-CODEINE Inactive CHERATUSSIN AC 100-10 MG/5ML ORAL SYRUP 1 tsp by mouth every 4 hours as needed for cough CHERATUSSIN AC 100-10 MG/5ML ORAL SYRUP 9 31597 GUAIFENESIN-CODEINE Inactive AUGMENTIN 875-125 MG ORAL TABLET 1 tab by mouth twice daily with food AUGMENTIN 875-125 MG ORAL TABLET 562960 AMOXICIL MADELINE-POT CLAVULANATE Inactive CHERATUSSIN AC 100-10 MG/5ML ORAL SYRUP take one tsp po Q 6h ours prn cough CHERATUSSIN AC 100-10 MG/5ML ORAL SYRUP 812127 GUAIFENESIN-CODEINE Inactive PROPRANOLOL HCL 60 MG ORAL TABLET 1 PO Q D PROPRANOLOL HCL 60 MG ORAL TABLET 432762 PROPRANOLOL HCL Inactive TOPAMAX 50 MG ORAL TABLET take 1 tab po BID for migraines. 07/02 TOPAMAX 50 MG ORAL TABLET 461766 TOPIRAMATE Inacti ve TOPAMAX 25 MG ORAL TABLET 1 qHS x 1 week, then 1 BID x 1 week, then 1 qAM and 2 qHS x 1 week, then 2 BID (migraine prevention) TOPAMAX 25 MG ORAL TABLET 509258 TOPIRAMATE Inactive LYRICA 75 MG ORAL CAPSULE TAKE 1 CAPSULE BY MOUTH TWICE DAILY LYRICA 75 MG ORAL CAPSULE PREGABALIN Inactive SYMBICORT 160-4.5 MCG/ACT INHALATION AEROSOL 2 puffs bid wit h rinse after SYMBICORT 160-4.5 MCG/ACT INHALATION AEROSOL BUDESONIDE- FORMOTEROL FUMARATE Inactive PROMETHAZINE-CODEINE 6.25-10 MG/5ML ORAL SYRUP 1 tsp b y mouth every 8 hours prn cough PROMETHAZINE-CODEINE 6.25-10 MG/ 5ML ORAL SYRUP 600212 PROMETHAZINE-CODEINE Inactive CYMBALTA 30 MG ORAL CAPSULE DELAYED RELEASE PARTICLES 1 cap by mouth daily CYMBALTA 30 MG ORAL CAPSULE DELAYED RELE ASE PARTICLES 563608 DULOXETINE HCL Inactive PREMARIN 0.625 MG ORAL TABLET TAKE 1 TAB BY MOUTH DAILY PREMARIN 0.625 MG ORAL TABLET ESTROGENS CONJUGATED Inactive CHERATUSSIN AC 100-10 MG/5ML ORAL SYRUP 1 tsp by mouth every 4 hours as needed for cough CHERATUSSIN AC 100-10 MG/5ML ORAL SYRUP 9 88645 GUAIFENESIN-CODEINE Inactive PROMETHAZINE-CODEINE 6.25-10 MG/5ML ORAL SYRUP 1 tsp b y mouth every 6 hours if needed for cough PROMETHAZINE-CODEINE 6.25-10 MG/5ML ORAL SYRUP 212206 PROMETHAZINE-CODEINE Inactive CHERATUSSIN AC 100-10 MG/5ML ORAL SYRUP 1 tsp by mouth every 4 hours as needed for cough CHERATUSSIN AC 100-10 MG/5ML ORAL SYRUP 9 14350 GUAIFENESIN-CODEINE Inactive FLUTICASONE PROPIONATE 50 MCG/ACT NASAL SUSPENSION 1 t o 2 sprays each nostril daily FLUTICASONE PROPIONATE 50 MCG/AC T NASAL SUSPENSION 4183947 FLUTICASONE PROPIONATE Inactive PREDNISONE 20 MG ORAL TABLET 3 tab PO qd x 2d, 2 tab P O qd x 2d, 1 tab PO qd x 2d, 1/2 tab PO qd x 2d PREDNISONE 20 MG ORAL TAB LET 959138 PREDNISONE Inactive LEVOFLOXACIN 500 MG ORAL TABLET 1 tab PO daily x 10 days LEVOFLOXACIN 500 MG ORAL TABLET 566900 LEVOFLOXACIN Inactive CYCLOBENZAPRINE HCL 10 MG ORAL TABLET 1 tablet by mouth BID prn had pain CYCLOBENZAPRINE HCL 10 MG ORAL TABLET 519164 CYCLOBENZAPRINE HCL Inactive ZOCOR 40 MG ORAL TABLET 1 tab by mouth daily 4 ZOCOR 40 MG ORAL TABLET 430006 SIMVASTATIN Inactive TUSSIONEX PENNKINETIC ER 10-8 MG/5ML [...] FLUTICASONE PROPIO EFE 50 MCG/ACT NASAL SUSPENSION 7063435 FLUTICASONE PROPIONATE Inactive TUSSIONEX PENNKINETIC ER 10-8 [...] three days PREDNISONE 20 MG ORAL TABLET 442997 PREDNIS ONE Inactive PROAIR HFA 108 (90 BASE) MCG/ACT INHALATION AEROSOL SO LUTION 2 puffs four times a day as needed PROAIR HFA 108 (90 B ASE) MCG/ACT INHALATION AEROSOL SOLUTION ALBUTEROL SULFATE Inactive ZITHROMAX Z-REYNA 250 MG ORAL TABLET 2 today, then 1 daily for 4 d ays ZITHROMAX Z-REYNA 250 MG ORAL TABLET 593691 AZITHROMYCIN Inactive CEFDINIR 300 MG ORAL CAPSULE by mouth twice a day 2010 CEFDINIR 300 MG ORAL CAPSULE 139408 CEFDINIR Inactive CEFDINIR 300 MG ORAL CAPSULE [...] 2-5 03/07/07 ZITHROMAX 250 MG ORAL TABLET 703566 AZITHROMYCIN Greer ctive CEFDINIR 300 MG ORAL CAPSULE by mouth twice a day 2011 CEFDINIR 300 MG ORAL CAPSULE 20020704 CEFDINIR Inactive PREDNISONE 20 MG ORAL TABLET 2 tabs daily for 3 days, 1 tab daily for 3 days, 1/2 tab daily for 2 days PREDNISONE 20 MG ORAL T ABLET 141356 PREDNISONE Inactive AVELOX 400 MG ORAL TABLET 1 tab by mouth daily AVELOX 400 MG ORAL TABLET 718661 MOXIFLOXACIN HCL Inactive AVELOX 400 MG ORAL TABLET 1 tab by mouth daily AVELOX 400 MG ORAL TABLET 662223 MOXIFLOXACIN HCL Inactive PREDNISONE 20 MG ORAL TABLET Take 3 tabs daily for 3 d ays, 2 tabs daily for 3 days, 1 tab daily for 3 days, 1/2 tab daily for 3 days 11/07 PREDNISONE 20 MG ORAL TABLET 775506 PREDNISONE Inactive LEVAQUIN 500 MG ORAL TABLET take one po QD LEVAQUIN 500 MG ORAL TABLET 062491 LEVOFLOXACIN Inactive AZITHROMYCIN 250 MG ORAL TABLET 2 po qd x 1 day, then 1 po q d x 4 days AZITHROMYCIN 250 MG ORAL TABLET 460347 AZITHROMY GIOVANNI Inactive MEDROL 4 MG ORAL TABLET THERAPY PACK 6 tabs on day 1, 5 tabs on day 2, 4 tabs on day 3, 3 tabs on day 4, 2 tabs on day 5, 1 tab on day 6 2013 MEDROL 4 MG ORAL TABLET THERAPY PACK 361238 METHYLPREDNISOLONE Streator ctive CHERATUSSIN AC 100-10 MG/5ML ORAL SYRUP 5ml po q6hr PRN Cough 20 13/04/14 CHERATUSSIN AC 100-10 MG/5ML ORAL SYRUP 571608 GUAIFENE SIN-CODEINE Inactive TRIAMCINOLONE ACETONIDE 0.1 % EXTERNAL CREAM apply three roger es daily prn rash TRIAMCINOLONE ACETONIDE 0.1 % EXTERNAL CREAM 101 4314 TRIAMCINOLONE ACETONIDE Inactive AZITHROMYCIN 250 MG ORAL TABLET 2 po qd x 1 day, then 1 po q d x 4 days AZITHROMYCIN 250 MG ORAL TABLET 566714 AZITHROMY GIOVANNI Inactive MEDROL 4 MG ORAL TABLET THERAPY PACK 6 pills x 1 day, then 5 pills x 1 day then 4 pills x 1 day, then 3 pills x 1 day, then 2 pills x 1 day, then 1 pill x 1 day, then stop MEDROL 4 MG ORAL TABLET THERAPY PACK 363351 METHYLPREDNISOLONE Inactive AMOXICILLIN 500 MG ORAL CAPSULE 1 tab by mouth 3 times daily x 10 days AMOXICILLIN 500 MG ORAL CAPSULE 599804 AMOXICILL IN Inactive AMOXICILLIN 500 MG ORAL CAPSULE 1 tab by mouth 3 times daily x 10 days AMOXICILLIN 500 MG ORAL CAPSULE 441621 AMOXICILL IN Inactive ZITHROMAX 250 MG ORAL TABLET 2 po today, then 1 po q days 2-5 20 12/08/14 ZITHROMAX 250 MG ORAL TABLET 168367 AZITHROMYCIN Greer ctive AUGMENTIN 875-125 MG ORAL TABLET 1 po BID x 10 days 20 13/01/20 AUGMENTIN 875-125 MG ORAL TABLET 007745 AMOXICILLIN-POT CLAVULANATE Inactive ZITHROMAX Z-REYNA 250 MG ORAL TABLET 2 today, then 1 daily for 4 d ays ZITHROMAX Z-REYNA 250 MG ORAL TABLET 855782 AZITHROMYCIN Inactive ZITHROMAX 250 MG ORAL TABLET 2 po today, then 1 po q days 2-5 20 14/03/21 ZITHROMAX 250 MG ORAL TABLET 443511 AZITHROMYCIN Streator ctive ZITHROMAX Z-REYNA 250 MG ORAL TABLET 2 today, then 1 daily for 4 d ays ZITHROMAX Z-REYNA 250 MG ORAL TABLET 747206 AZITHROMYCIN Inactive CEFDINIR 300 MG ORAL CAPSULE 1 po BID x 10 days 06/21 CEFDINIR 300 MG ORAL CAPSULE 20020704 CEFDINIR Inactive ZITHROMAX 250 MG ORAL TABLET 2 po today, then 1 po q days 2-5 20 13/08/10 ZITHROMAX 250 MG ORAL TABLET 256045 AZITHROMYCIN Streator ctive LEVAQUIN 500 MG ORAL TABLET 1 tablet by mouth daily 13/09/24 LEVAQUIN 500 MG ORAL TABLET 19971102 LEVOFLOXACIN Inactive SINGULAIR 10 MG ORAL TABLET 1 po qday for allergies 20 14/01/12 SINGULAIR 10 MG ORAL TABLET 20010504 MONTELUKAST SODIUM Inactive AMOXICILLIN 500 MG ORAL CAPSULE 2 po BID x 10 days 201 09/29/08 AMOXICILLIN 500 MG ORAL CAPSULE 797482 AMOXICILLIN Inactive PREDNISONE 20 MG ORAL TABLET 2 tabs daily for 3 days, 1 tab daily for 3 days, 1/2 tab daily for 2 days PREDNISONE 20 MG ORAL T ABLET 793983 PREDNISONE Inactive ZITHROMAX Z-REYNA 250 MG ORAL TABLET 2 today, then 1 daily for 4 d ays ZITHROMAX Z-REYNA 250 MG ORAL TABLET 934368 AZITHROMYCIN Inactive PREDNISONE 20 MG ORAL TABLET 2 tabs daily for 3 days, 1 tab daily for 3 days, 1/2 tab daily for 2 days PREDNISONE 20 MG ORAL T ABLET 786695 PREDNISONE Inactive ZITHROMAX 250 MG ORAL TABLET 2 po today, then 1 po q days 2-5 20 14/09/04 ZITHROMAX 250 MG ORAL TABLET 784250 AZITHROMYCIN Greer ctive AMOXICILLIN 500 MG ORAL CAPSULE 1 cap by mouth three times a day AMOXICILLIN 500 MG ORAL CAPSULE 184639 AMOXICILLIN Inactive TERBINAFINE HCL 250 MG ORAL TABLET 1 qDay for nail fungus 7 TERBINAFINE HCL 250 MG ORAL TABLET 441473 TERBINAFINE HCL Inact nael AUGMENTIN 875-125 MG ORAL TABLET 1 po BID x 10 days 16/03/22 AUGMENTIN 875-125 MG ORAL TABLET 068178 AMOXICILLIN-POT CLAVULANATE Inactive PREDNISONE 20 MG ORAL TABLET 2 po qd x 5 days PREDNISONE 20 MG ORAL TABLET 672253 PREDNISONE Inactive Vital Signs Date Name Value [...] - Chem istry sodium, serum 142 mmol/L 344-923 3552/07/17 potassium, serum 4.2 mmol/L 3.5-5.2 chloride, serum 106 mmol/L 98-107 carbon dioxide, venous blood 29.9 mmol/L 21.0-32 .0 blood glucose 108 mg/dL 65-110 calcium, serum 9.1 mg/dL 8.5-10.1 urea nitrogen, blood 11 mg/dL 7-18 creatinine, serum 0.81 mg/dL 0.60-1.30 sodium, serum 139 mmol/L 621-003 6668/03/19 potassium, serum 3.6 mmol/L 3.5-5.2 chloride, serum 100 mmol/L 98-107 carbon dioxide, venous blood 30.3 mmol/L 21.0-32 .0 blood glucose 101 mg/dL 65-110 calcium, serum 9.4 mg/dL 8.5-10.1 urea nitrogen, blood 10 mg/dL 7-18 creatinine, serum 0.96 mg/dL 0.60-1.30 Encounters Code Encounter Date Provider Facility CPT-78816 Level 3 Est. Patient 11:34:49 BUSINESS INFORMATION MANAGER Perez Mora MD [facility] CPT-41366 Level 4 Est. Patient 09:51:32 BUSINESS INFORMATION MANAGER Carlton rich MD [facility] CPT-68400 Level 3 Est. Patient 10:26:00 BUSINESS INFORMATION MANAGER Elise stephenson APRN [facility] CPT-64668 Level 3 Est. Patient 13:35:41 BUSINESS INFORMATION MANAGER Carlton rich MD [facility] CPT-20949 Level 3 Est. Patient 10:03:52 BUSINESS INFORMATION MANAGER Carlton rich MD [facility] CPT-22381 Level 3 Est. Patient 12:17:50 CDT Hugo Restrepo MD [facility] CPT-17102 Level 3 Est. Patient 13:42:38 CDT Elise Are [facility] CPT-13391 Level 3 Est. Patient 13:23:51 CDT Diya cobian [facility] CPT-77824 Level 3 Est. Patient 14:22:19 BUSINESS INFORMATION MANAGER Diya Mariana cobian [facility] CPT-14646 Level 3 Est. Patient 10:11:46 CDT Carlton rich MD [facility] CPT-14785 Level 3 Est. Patient 17:29:43 CDT Elise Are [facility] CPT-05870 Level 3 Est. Patient 11:58:06 CDT Elise Are [facility] CPT-17801 Level 4 Est. Patient 14:36:51 CDT Carlton rich MD [facility] CPT-73392 Level 3 Est. Patient 18:16:00 BUSINESS INFORMATION MANAGER Blaine HERNANDEZ [facility] CPT-82701 Level 3 Est. Patient 09:45:49 BUSINESS INFORMATION MANAGER Carlton rich MD [facility] CPT-76311 Level 3 Est. Patient 13:19:20 CDT Carlton rich MD [facility] CPT-39484 Level 3 Est. Patient 13:06:43 CDT Ridge tam DO [facility] CPT-89838 Level 3 Est. Patient 10:03:07 CDT Perez Mora MD [facility] CPT-95839 Level 3 Est. Patient 19:50:35 BUSINESS INFORMATION MANAGER Carlton rich MD [facility] CPT-06320 Level 4 Est. Patient 18:05:01 BUSINESS INFORMATION MANAGER Carlton rich MD [facility] CPT-98968 Level 3 Est. Patient 10:45:55 BUSINESS INFORMATION MANAGER Hugo Restrepo MD [facility]-86863 Level 3 Est. Patient 14:12:49 CDT Griffin HERNANDEZ [facility]-47932 Level 3 Est. Patient 17:37:24 CDT Carlton rich MD [facility]-17264 Level 3 Est. Patient 16:51:54 CDT Carlton rich MD [facility]-28823 Level 3 Est. Patient 12:18:11 CDT Hugo Restrepo MD [facility]-06586 Level 3 Est. Patient 11:30:25 CDT Marcy crisostomo MD PhD [facility]-09832 Level 3 Est. Patient 12:00:47 BUSINESS INFORMATION MANAGER Carlton rich MD [facility]-12964 Level 3 Est. Patient 16:31:06 BUSINESS INFORMATION MANAGER Carlton rich MD [facility] CPT-33493 Level 3 Est. Patient 16:23:24 BUSINESS INFORMATION MANAGER Ridge tam [facility] CPT-44501 Level 3 Est. Patient 12:34:12 CDT Carlton rich MD [facility]-45064 Level 2 Est. Patient 15:43:33 CDT Robi armstrong MD [facility]-39540 Level 4 Est. Patient 14:04:44 CDT Carlton rich MD [facility]-33655 Level 3 Est. Patient 05:47:59 CDT Ridge tam [facility] [place] [facility] [place]45 Level 3 Est. Patient 13:12:53 BUSINESS INFORMATION MANAGER Carlton rich MD [facility]-99592 Level 3 Est. Patient 14:26:53 CDT Hugo Restrepo MD [facility] Procedures Code Procedure Name Date Entry Date Standard Desc ription CPT-000 Give Appropriate Flu Vaccine 14:14:31 CDT 2 CPT-J1040 Depo Medrol 80 mg (Methyl Prednisolone A cetate) 10:42:44 CDT CPT-J1100 Decadron 8mg (Dexamethasone) 10:42:44 CDT 2 CPT-J0696 Rocephin 1gm Inj Solr 14:32:13 CDT CPT-J1020 Depo Medrol 60 mg (Methyl Prednisolone A cetate) 14:32:13 CDT CPT-J1100 Decadron 6mg (Dexamethasone) 14:32:13 CDT 2 CPT-82141 Hip bilat min 2V w AP pelvis 13:16:20 CDT 2 CPT-13954 Pelvis only 13:07:33 CDT CPT-53961 Spec Collection and Handling Fee 11:25:12 C DT CPT-85558 Fluzone Quadrivalent Intramuscular Suspe nsion 0.5 ML 14:31:55 CDT CPT-09035 Abx/Therapy Injection 13:28:47 BUSINESS INFORMATION MANAGER CPT-J2930 Solu Medrol 125 mg (Methyl Prednisolone Sodium Succinate) 12:00:47 BUSINESS INFORMATION MANAGER CPT-09178 Venipuncture Draw Fee 11:33:31 CDT CPT-59182 EKG Trac and Interp 11:21:09 CDT CPT-16783 Chest 2V Frontal and Lat 11:21:09 CDT 12/15 CPT-89567 Venipuncture Draw Fee 08:02:34 CDT CPT-43229 Chest 2V Frontal and Lat 05:47:59 CDT 06/05
--- OUTSIDE RECORDS SUMMARY | 2019-10-08 08:05 | XMS REPORT | Clinical Summary ---
Author Author Caitlin, Juliana Martinez Organization [facility] Address Unknown Phone Unavailable Allergies, Adverse Reactions, [...] po qd x 5 days P REDNISONE [id number] No Longer Active Perez Mora MD Active PROAIR HFA 108 (90 BASE) MCG/ACT INHALATION AEROSOL SO LUTION 2 puffs four times a day as needed ALBUTEROL SULFATE 53708857158 No Long er Active Becky FUENTES Active ASPIRIN 81 MG ORAL TABLET 1 po qd ASPIRIN 88202542547 Active Carlton Hu MD Active PREDNISONE 20 MG ORAL TABLET 1 tab twice daily for 3 d ay, then one daily for three days PREDNISONE 36347370622 No Longer Active Carlton Hu MD Active AUGMENTIN 875-125 MG ORAL TABLET 1 po BID x 10 days 16/03/22 AMOXICILLIN-POT CLAVULANATE 85996378108 No Longer Active Elise Garcia APRN Active TERBINAFINE HCL 250 MG ORAL TABLET 1 qDay for nail fungus 7 TERBINAFINE HCL 03091554247 No Longer Active Carlton Hu MD A ctive TUSSIONEX PENNKINETIC ER 10-8 MG/5ML ORAL SUSPENSION E XTENDED RELEASE 5ml po q12hr PRN Cough HYDROCOD POLST-CHLORPHEN POLST 76684646823 Active Carlton Hu MD Active AMOXICILLIN 500 MG ORAL CAPSULE 1 cap by mouth three times a day AMOXICILLIN 28479015946 No Longer Active Carlton Hu MD Active ELMIRON 100 MG ORAL CAPSULE 2 tablets in the am and 1 tablet at hs PENTOSAN POLYSULFATE SODIUM 06589437401 No Longer Active Robert Hu MD Active MUCINEX D 60-600 MG ORAL TABLET EXTENDED RELEASE 12 HOUR 1 t ab po q am PSEUDOEPHEDRINE-GUAIFENESIN 22321918677 No Longer Act nael Carlton Hu MD Active MUCINEX DM MAXIMUM STRENGTH 60-1200 MG ORAL TABLET EXT ENDED RELEASE 12 HOUR 1 tab po q am DEXTROMETHORPHAN-GUAIFENESIN 95661719764 No Longer Active Carlton Hu MD Active TUSSIONEX PENNKINETIC ER 10-8 MG/5ML ORAL SUSPENSION E XTENDED RELEASE 5ml po q12hr PRN Cough HYDROCOD POLST-CHLORPHEN POLST 5 1581302220 No Longer Active Carlton Hu MD Active POTASSIUM CHLORIDE ER 20 MEQ ORAL TABLET EXTENDED RELE ASE Take 1 by mouth 4 times daily for 7 days POTASSIUM CHLORIDE 12001312548 No Longer Active Carlton Hu MD Active ZITHROMAX 250 MG ORAL TABLET 2 po today, then 1 po q days 2-5 20 14/09/04 AZITHROMYCIN 21168670140 No Longer Active Elise Garcia APRN Active TUSSIONEX PENNKINETIC ER 10-8 MG/5ML ORAL SUSPENSION E XTENDED RELEASE 5 ml twice a day as needed for cough HYDROCOD POLST-CHLORPH EN POLST 22509304763 No Longer Active Elise Garcia APRN Active MONTELUKAST SODIUM 10 MG ORAL TABLET 1 po daily for Allergy MONTELUKAST SODIUM 64200794002 Active Carlton Hu MD Ac tive TUSSIONEX PENNKINETIC ER 10-8 MG/5ML ORAL SUSPENSION E XTENDED RELEASE 5ml po q12hr PRN Cough HYDROCOD POLST-CHLORPHEN POLST 5 5439820162 No Longer Active Hugo Restrepo MD Active GABAPENTIN 100 MG ORAL CAPSULE 1 po BID for fibromyalgia GABAPENTIN 54572594548 Active Carlton Hu MD Active LYRICA 100 MG ORAL CAPSULE Take 1 tab po BID for fibromyalgia 20 11/08/21 PREGABALIN 92598344247 No Longer Active Elise Garcia APRN A ctive PREDNISONE 20 MG ORAL TABLET 2 tabs daily for 3 days, 1 tab daily for 3 days, 1/2 tab daily for 2 days PREDNISONE 93520683402 No Longer Active Diay De Guzman APRN Active TUSSIONEX PENNKINETIC ER 10-8 MG/5ML ORAL SUSPENSION E XTENDED RELEASE 5 mL PO q 12 hrs PRN cough HYDROCOD POLST-CHLORPHEN POLST 110112 41121 No Longer Active Jillina Gege RICEN Active FLUTICASONE PROPIONATE 50 MCG/ACT NASAL SUSPENSION 2 s prays each nostril daily until bottle is empty FLUTICASONE PROPIONATE 425600960 99 No Longer Active Diya De Guzman APRN Active ASMANEX 60 METERED DOSES 220 MCG/INH INHALATION AEROSO L POWDER BREATH ACTIVATED 1 puff bid with rinse after MOMETASONE FUROATE 2761860 4102 No Longer Active Diya De Guzman APRN Active ZITHROMAX Z-REYNA 250 MG ORAL TABLET 2 today, then 1 daily for 4 d ays AZITHROMYCIN 85536014801 No Longer Active Elise Garcia APRN Active TUSSIONEX PENNKINETIC ER 10-8 MG/5ML ORAL SUSPENSION E XTENDED RELEASE 5ml po q12hr PRN Cough HYDROCOD POLST-CHLORPHEN POLST 5 0039321848 No Longer Active Elise Garcia APRN Active PREDNISONE 20 MG ORAL TABLET 2 tabs daily for 3 days, 1 tab daily for 3 days, 1/2 tab daily for 2 days PREDNISONE 26778571120 No Longer Active Diya De Guzman APRN Active AMOXICILLIN 500 MG ORAL CAPSULE 2 po BID x 10 days 201 09/29/08 AMOXICILLIN 01533947510 No Longer Active Diya De Guzman APRN Act nael SINGULAIR 10 MG ORAL TABLET 1 po qday for allergies 20 14/01/12 MONTELUKAST SODIUM 39242176479 No Longer Active Carlton Hu MD Active LEVAQUIN 500 MG ORAL TABLET 1 tablet by mouth daily 20 13/09/24 LEVOFLOXACIN 09219239580 No Longer Active Carlton Hu MD Acti ve FLUTICASONE PROPIONATE 50 MCG/ACT NASAL SUSPENSION 2 s prays each nostril daily for 2 weeks, then 1 spray each nostril daily. FLUTICASONE PROPIONATE 05199360445 Active Elise Garcia APRN Active ZITHROMAX 250 MG ORAL TABLET 2 po today, then 1 po q days 2-5 20 13/08/10 AZITHROMYCIN 92317782400 No Longer Active Elise Garcia APRN Active XANAX 0.5 MG ORAL TABLET one tablet by mouth daily prn anxiety 2015 ALPRAZOLAM 13610199150 Active Carlton Hu MD Active CYMBALTA 30 MG ORAL CAPSULE DELAYED RELEASE PARTICLES 1 cap by mouth daily for depression DULOXETINE HCL 78579130277 Active Carlton beltrán MD Active CEFDINIR 300 MG ORAL CAPSULE 1 po BID x 10 days CEFDINIR 67975933753 No Longer Active Carlton Hu MD Active ZOCOR 40 MG ORAL TABLET 1 tab by mouth daily SI MVASTATIN 09363281976 No Longer Active Carlton Hu MD Active CYCLOBENZAPRINE HCL 10 MG ORAL TABLET 1 tablet by mouth BID prn had pain CYCLOBENZAPRINE HCL 14750358465 No Longer Active Jayden Hu MD Active LEVOFLOXACIN 500 MG ORAL TABLET 1 tab PO daily x 10 days LEVOFLOXACIN 12815682609 No Longer Active Carlton Hu MD Acti ve PREDNISONE 20 MG ORAL TABLET 3 tab PO qd x 2d, 2 tab P O qd x 2d, 1 tab PO qd x 2d, 1/2 tab PO qd x 2d PREDNISONE 14709460025 No Lo nger Active Carlton Hu MD Active FLUTICASONE PROPIONATE 50 MCG/ACT NASAL SUSPENSION 1 t o 2 sprays each nostril daily FLUTICASONE PROPIONATE 08686369832 No Longer Ac tive Blaine HERNANDEZ Active CHERATUSSIN AC 100-10 MG/5ML ORAL SYRUP 1 tsp by mouth every 4 hours as needed for cough GUAIFENESIN-CODEINE 61040758531 No Longe r Active Blaine HERNANDEZ Active PROMETHAZINE-CODEINE 6.25-10 MG/5ML ORAL SYRUP 1 tsp b y mouth every 6 hours if needed for cough PROMETHAZINE-CODEINE 67952605896 No Longer Active Blaine HERNANDEZ Active CHERATUSSIN AC 100-10 MG/5ML ORAL SYRUP 1 tsp by mouth every 4 hours as needed for cough GUAIFENESIN-CODEINE 23389965092 No Longe r Active Blaine HERNANDEZ Active ZITHROMAX Z-REYNA 250 MG ORAL TABLET 2 today, then 1 daily for 4 d ays AZITHROMYCIN 58676776887 No Longer Active Columba Raida Act nael ZITHROMAX 250 MG ORAL TABLET 2 po today, then 1 po q days 2-5 20 14/03/21 AZITHROMYCIN 72075050794 No Longer Active Carlton Hu MD Active ZITHROMAX Z-REYNA 250 MG ORAL TABLET 2 today, then 1 daily for 4 d ays AZITHROMYCIN 54748864794 No Longer Active Columba Raida Act nael AUGMENTIN 875-125 MG ORAL TABLET 1 po BID x 10 days 13/01/20 AMOXICILLIN-POT CLAVULANATE 64645456548 No Longer Active Diya De Guzman APRN Active ZITHROMAX 250 MG ORAL TABLET 2 po today, then 1 po q days 2-5 20 12/08/14 AZITHROMYCIN 47753468600 No Longer Active Carlton Hu MD Active TRAMADOL HCL 50 MG ORAL TABLET 1 po tid with ES Tylenol TRAMADOL HCL 99212146970 Active Carlton Hu MD Active PREMARIN 0.625 MG ORAL TABLET TAKE 1 TAB BY MOUTH DAILY ESTROGENS CONJUGATED 48119363141 No Longer Active Ridge Bess DO A ctive CYMBALTA 30 MG ORAL CAPSULE DELAYED RELEASE PARTICLES 1 cap by mouth daily DULOXETINE HCL 78696738748 No Longer Active Ridge tam DO Active AMOXICILLIN 500 MG ORAL CAPSULE 1 tab by mouth 3 times daily x 10 days AMOXICILLIN 88049612144 No Longer Active Carlton bustamante MD Active AMOXICILLIN 500 MG ORAL CAPSULE 1 tab by mouth 3 times daily x 10 days AMOXICILLIN 97772479325 No Longer Active Carlton bustamante MD Active PROMETHAZINE-CODEINE 6.25-10 MG/5ML ORAL SYRUP 1 tsp b y mouth every 8 hours prn cough PROMETHAZINE-CODEINE 98489483522 No Longer Acti ve Carlton Hu MD Active MEDROL 4 MG ORAL TABLET THERAPY PACK 6 pills x 1 day, then 5 pills x 1 day then 4 pills x 1 day, then 3 pills x 1 day, then 2 pills x 1 day, then 1 pill x 1 day, then stop METHYLPREDNISOLONE 87051487177 No Long er Active Perez Mora MD Active AZITHROMYCIN 250 MG ORAL TABLET 2 po qd x 1 day, then 1 po q d x 4 days AZITHROMYCIN 55309476238 No Longer Active Perez Ambriz MD Active SYMBICORT 160-4.5 MCG/ACT INHALATION AEROSOL 2 puffs bid wit h rinse after BUDESONIDE-FORMOTEROL FUMARATE 53773208140 N o Longer Active Perez Mora MD Active LYRICA 75 MG ORAL CAPSULE TAKE 1 CAPSULE BY MOUTH TWICE DAILY PREGABALIN 92211951345 No Longer Active Carlton Hu MD Acti ve TOPAMAX 25 MG ORAL TABLET 1 qHS x 1 week, then 1 BID x 1 week, then 1 qAM and 2 qHS x 1 week, then 2 BID (migraine prevention) T OPIRAMATE 29447887017 No Longer Active Jerica FUENTES Active TOPAMAX 50 MG ORAL TABLET take 1 tab po BID for migraines. 07/02 TOPIRAMATE 81851451254 No Longer Active Jerica FUENTES Active TOPAMAX 100 MG ORAL TABLET Take 1 tablet po bid TO PIRAMATE 47524384597 Active Carlton Hu MD Active TRIAMCINOLONE ACETONIDE 0.1 % EXTERNAL CREAM apply three roger es daily prn rash TRIAMCINOLONE ACETONIDE 22119784716 No Longer Active Carlton Hu MD Active PAXIL 40 MG ORAL TABLET take 1 tab po qday for depression 0 PAROXETINE HCL 61072755148 Active Perez Mora MD Active CHERATUSSIN AC 100-10 MG/5ML ORAL SYRUP 5ml po q6hr PRN Cough 20 13/04/14 GUAIFENESIN-CODEINE 35437275952 No Longer Active Carlton Hu MD Active MEDROL 4 MG ORAL TABLET THERAPY PACK 6 tabs on day 1, 5 tabs on day 2, 4 tabs on day 3, 3 tabs on day 4, 2 tabs on day 5, 1 tab on day 6 2013 METHYLPREDNISOLONE 71877717348 No Longer Active Perez Mora MD Active AZITHROMYCIN 250 MG ORAL TABLET 2 po qd x 1 day, then 1 po q d x 4 days AZITHROMYCIN 04015748170 No Longer Active Perez Ambriz MD Active PROPRANOLOL HCL 60 MG ORAL TABLET 1 PO Q D PROPRANOLOL HCL 13797086167 No Longer Active Perez Mora MD Activ e CHERATUSSIN AC 100-10 MG/5ML ORAL SYRUP take one tsp po Q 6h ours prn cough GUAIFENESIN-CODEINE 64071617090 No Longer Active Zia Mora MD Active AUGMENTIN 875-125 MG ORAL TABLET 1 tab by mouth twice daily with food AMOXICILLIN-POT CLAVULANATE 25273831878 No Longer Act nael Perez Mora MD Active CHERATUSSIN AC 100-10 MG/5ML ORAL SYRUP 1 tsp by mouth every 4 hours as needed for cough GUAIFENESIN-CODEINE 23302788907 No Longe r Active Hugo Restrepo MD Active ACETAMINOPHEN-CODEINE #3 300-30 MG ORAL TABLET 1 PO Q 4-6 HRS IN N PAIN ACETAMINOPHEN-CODEINE 89151141680 No Longer Active Hugo Restrepo MD Active LEVAQUIN 500 MG ORAL TABLET take one po QD LEVO FLOXACIN 37976177832 No Longer Active Griffin HERNANDEZ Active PREDNISONE 20 MG ORAL TABLET Take 3 tabs daily for 3 d ays, 2 tabs daily for 3 days, 1 tab daily for 3 days, 1/2 tab daily for 3 days 11/07 PREDNISONE 84116653654 No Longer Active Carlton Hu MD Acti ve AVELOX 400 MG ORAL TABLET 1 tab by mouth daily MOXIFLOXACIN HCL 96231798487 No Longer Active Carlton Hu MD Active CHERATUSSIN AC 100-10 MG/5ML ORAL SYRUP 1 tsp by mouth every 4 hours as needed for cough GUAIFENESIN-CODEINE 72552936789 No Longe r Active Hugo Restrepo MD Active AVELOX 400 MG ORAL TABLET 1 tab by mouth daily MOXIFLOXACIN HCL 84587918924 No Longer Active Marcy De La Rosa MD PhD Active TERBINAFINE HCL 250 MG ORAL TABLET 1 qDay T ERBINAFINE HCL 36657288596 No Longer Active Marcy De La Rosa MD PhD Active CHERATUSSIN AC 100-10 MG/5ML ORAL SYRUP 1 tsp by mouth every 4 hours as needed for cough GUAIFENESIN-CODEINE 26631614800 No Longe r Active Marcy De La Rosa MD PhD Active AVELOX 400 MG ORAL TABLET 1 tab by mouth daily MOXIFLOXACIN HCL 46060107836 No Longer Active Marcy De aL Rosa MD PhD Active HYDROCODONE-ACETAMINOPHEN 5-325 MG ORAL TABLET 1 po q 6hr PRN co ugh HYDROCODONE-ACETAMINOPHEN 47013011155 No Longer Active Marcy De La Rosa MD PhD Active PREDNISONE 20 MG ORAL TABLET 2 tabs daily for 3 days, 1 tab daily for 3 days, 1/2 tab daily for 2 days PREDNISONE 88534689813 No Longer Active Carlton Hu MD Active CEFDINIR 300 MG ORAL CAPSULE by mouth twice a day 2011 CEFDINIR 01476987845 No Longer Active Carlton Hu MD Acti ve HYDROCHLOROTHIAZIDE 25 MG ORAL TABLET 1 TAB PO DAILY HYDROCHLOROTHIAZIDE 50065563629 Active Carlton Hu MD A ctive ACETAMINOPHEN-CODEINE #3 300-30 MG ORAL TABLET 1 tablet po q 4-6 hrs prn pain ACETAMINOPHEN-CODEINE 65560780700 No Longer Active Ridge Bess DO Active ZITHROMAX 250 MG ORAL TABLET 2 po today, then 1 po q days 2-5 20 03/07/07 AZITHROMYCIN 17619805822 No Longer Active Carlton Hu MD Active CHERATUSSIN AC 100-10 MG/5ML ORAL SYRUP take 1 tsp po q4-6 h ours prn cough GUAIFENESIN-CODEINE 65611410099 No Longer Active Jayden Hu MD Active ACETAMINOPHEN-CODEINE #3 300-30 MG ORAL TABLET 1 PO Q 4-6 HR PRN PAIN ACETAMINOPHEN-CODEINE 45493387471 No Longer Active Arnol Hu MD Active LORTAB 7.5-500 MG/15ML ORAL ELIXIR 7.5 ml po q 4 hour prn cough HYDROCODONE-ACETAMINOPHEN 72673504464 No Longer Active Carlton Hu MD Active PREDNISONE 20 MG ORAL TABLET 1 po bid 3 days, then 1 po q day 3 days PREDNISONE 45864787116 No Longer Active Carlton Hu MD Active CEFDINIR 300 MG ORAL CAPSULE by mouth twice a day 2011 CEFDINIR 08211795887 No Longer Active Carlton Hu MD Acti ve CEFDINIR 300 MG ORAL CAPSULE by mouth twice a day 2010 CEFDINIR 18763760407 No Longer Active Carlton Hu MD Acti ve CEFDINIR 300 MG ORAL CAPSULE by mouth twice a day 2010 CEFDINIR 46865564288 No Longer Active Carlton Hu MD Acti ve TESSALON PERLES 100 MG ORAL CAPSULE 1 tablet by mouth 3 times daily as needed for cough BENZONATATE 74440689251 No Longer Active Carlton Hu MD Active CEFDINIR 300 MG ORAL CAPSULE by mouth twice a day 2010 CEFDINIR 72443716430 No Longer Active Carlton Hu MD Acti ve ZITHROMAX Z-REYNA 250 MG ORAL TABLET 2 today, then 1 daily for 4 d ays AZITHROMYCIN 87631579305 No Longer Active Hugo Restrepo MD Active TESSALON PERLES 100 MG ORAL CAPSULE 1 tablet by mouth 3 times daily as needed for cough TESSALON PERLES 100 MG ORAL CAPSULE 82363 7 BENZONATATE Inactive PREDNISONE 20 MG ORAL TABLET 1 po bid 3 days, then 1 po q day 3 days PREDNISONE 20 MG ORAL TABLET 749878 PREDNISONE [place] ctive LORTAB 7.5-500 MG/15ML ORAL ELIXIR 7.5 [...] cough CHERATUSSIN AC 100-10 MG/5ML ORAL SYRUP 767062 GUAIFENESIN-CODEINE Inactive ACETAMINOPHEN-CODEINE #3 300-30 MG ORAL TABLET 1 tablet po q 4-6 hrs prn pain ACETAMINOPHEN-CODEINE #3 300-30 MG ORAL TABLET ACETAMINOPHEN-CODEINE Inactive HYDROCODONE-ACETAMINOPHEN 5-325 MG ORAL TABLET 1 po q 6hr PRN co ugh HYDROCODONE-ACETAMINOPHEN 5-325 MG ORAL TABLET 681607 HYDROCODONE-ACETAMINOPHEN Inactive AVELOX 400 MG ORAL TABLET 1 tab by mouth daily AVELOX 400 MG ORAL TABLET 542660 MOXIFLOXACIN HCL Inactive CHERATUSSIN AC 100-10 MG/5ML ORAL SYRUP 1 tsp by mouth every 4 hours as needed for cough CHERATUSSIN AC 100-10 MG/5ML ORAL SYRUP 9 23330 GUAIFENESIN-CODEINE Inactive TERBINAFINE HCL 250 MG ORAL TABLET 1 qDay 07/08 TERBINAFINE HCL 250 MG ORAL TABLET 186005 TERBINAFINE HCL Inactive CHERATUSSIN AC 100-10 MG/5ML ORAL SYRUP 1 tsp by mouth every 4 hours as needed for cough CHERATUSSIN AC 100-10 MG/5ML ORAL SYRUP 9 71988 GUAIFENESIN-CODEINE Inactive ACETAMINOPHEN-CODEINE #3 300-30 MG ORAL TABLET 1 PO Q 4-6 HRS IN N PAIN ACETAMINOPHEN-CODEINE #3 300-30 MG ORAL TABLET ACETAMINOPHEN-CODEINE Inactive CHERATUSSIN AC 100-10 MG/5ML ORAL SYRUP 1 tsp by mouth every 4 hours as needed for cough CHERATUSSIN AC 100-10 MG/5ML ORAL SYRUP 9 40871 GUAIFENESIN-CODEINE Inactive AUGMENTIN 875-125 MG ORAL TABLET 1 tab by mouth twice daily with food AUGMENTIN 875-125 MG ORAL TABLET 481107 AMOXICIL MADELINE-POT CLAVULANATE Inactive CHERATUSSIN AC 100-10 MG/5ML ORAL SYRUP take one tsp po Q 6h ours prn cough CHERATUSSIN AC 100-10 MG/5ML ORAL SYRUP 125984 GUAIFENESIN-CODEINE Inactive PROPRANOLOL HCL 60 MG ORAL TABLET 1 PO Q D PROPRANOLOL HCL 60 MG ORAL TABLET 740760 PROPRANOLOL HCL Inactive TOPAMAX 50 MG ORAL TABLET take 1 tab po BID for migraines. 07/02 TOPAMAX 50 MG ORAL TABLET 138758 TOPIRAMATE Inacti ve TOPAMAX 25 MG ORAL TABLET 1 qHS x 1 week, then 1 BID x 1 week, then 1 qAM and 2 qHS x 1 week, then 2 BID (migraine prevention) TOPAMAX 25 MG ORAL TABLET 930850 TOPIRAMATE Inactive LYRICA 75 MG ORAL CAPSULE TAKE 1 CAPSULE BY MOUTH TWICE DAILY LYRICA 75 MG ORAL CAPSULE PREGABALIN Inactive SYMBICORT 160-4.5 MCG/ACT INHALATION AEROSOL 2 puffs bid wit h rinse after SYMBICORT 160-4.5 MCG/ACT INHALATION AEROSOL BUDESONIDE- FORMOTEROL FUMARATE Inactive PROMETHAZINE-CODEINE 6.25-10 MG/5ML ORAL SYRUP 1 tsp b y mouth every 8 hours prn cough PROMETHAZINE-CODEINE 6.25-10 MG/ 5ML ORAL SYRUP 576314 PROMETHAZINE-CODEINE Inactive CYMBALTA 30 MG ORAL CAPSULE DELAYED RELEASE PARTICLES 1 cap by mouth daily CYMBALTA 30 MG ORAL CAPSULE DELAYED RELE ASE PARTICLES 463849 DULOXETINE HCL Inactive PREMARIN 0.625 MG ORAL TABLET TAKE 1 TAB BY MOUTH DAILY PREMARIN 0.625 MG ORAL TABLET ESTROGENS CONJUGATED Inactive CHERATUSSIN AC 100-10 MG/5ML ORAL SYRUP 1 tsp by mouth every 4 hours as needed for cough CHERATUSSIN AC 100-10 MG/5ML ORAL SYRUP 9 74589 GUAIFENESIN-CODEINE Inactive PROMETHAZINE-CODEINE 6.25-10 MG/5ML ORAL SYRUP 1 tsp b y mouth every 6 hours if needed for cough PROMETHAZINE-CODEINE 6.25-10 MG/5ML ORAL SYRUP 650981 PROMETHAZINE-CODEINE Inactive CHERATUSSIN AC 100-10 MG/5ML ORAL SYRUP 1 tsp by mouth every 4 hours as needed for cough CHERATUSSIN AC 100-10 MG/5ML ORAL SYRUP 9 11830 GUAIFENESIN-CODEINE Inactive FLUTICASONE PROPIONATE 50 MCG/ACT NASAL SUSPENSION 1 t o 2 sprays each nostril daily FLUTICASONE PROPIONATE 50 MCG/AC T NASAL SUSPENSION 1806101 FLUTICASONE PROPIONATE Inactive PREDNISONE 20 MG ORAL TABLET 3 tab PO qd x 2d, 2 tab P O qd x 2d, 1 tab PO qd x 2d, 1/2 tab PO qd x 2d PREDNISONE 20 MG ORAL TAB LET 684584 PREDNISONE Inactive LEVOFLOXACIN 500 MG ORAL TABLET 1 tab PO daily x 10 days LEVOFLOXACIN 500 MG ORAL TABLET 211445 LEVOFLOXACIN Inactive CYCLOBENZAPRINE HCL 10 MG ORAL TABLET 1 tablet by mouth BID prn had pain CYCLOBENZAPRINE HCL 10 MG ORAL TABLET 694624 CYCLOBENZAPRINE HCL Inactive ZOCOR 40 MG ORAL TABLET 1 tab by mouth daily 4 ZOCOR 40 MG ORAL TABLET 452237 SIMVASTATIN Inactive TUSSIONEX PENNKINETIC ER 10-8 MG/5ML [...] FLUTICASONE PROPIO EFE 50 MCG/ACT NASAL SUSPENSION 9027338 FLUTICASONE PROPIONATE Inactive TUSSIONEX PENNKINETIC ER 10-8 [...] three days PREDNISONE 20 MG ORAL TABLET 702869 PREDNIS ONE Inactive PROAIR HFA 108 (90 BASE) MCG/ACT INHALATION AEROSOL SO LUTION 2 puffs four times a day as needed PROAIR HFA 108 (90 B ASE) MCG/ACT INHALATION AEROSOL SOLUTION ALBUTEROL SULFATE Inactive ZITHROMAX Z-REYNA 250 MG ORAL TABLET 2 today, then 1 daily for 4 d ays ZITHROMAX Z-REYNA 250 MG ORAL TABLET 466968 AZITHROMYCIN Inactive CEFDINIR 300 MG ORAL CAPSULE by mouth twice a day 2010 CEFDINIR 300 MG ORAL CAPSULE 982256 CEFDINIR Inactive CEFDINIR 300 MG ORAL CAPSULE [...] 2-5 03/07/07 ZITHROMAX 250 MG ORAL TABLET 660584 AZITHROMYCIN [place] ctive CEFDINIR 300 MG ORAL CAPSULE by mouth twice a day 2011 CEFDINIR 300 MG ORAL CAPSULE 20020704 CEFDINIR Inactive PREDNISONE 20 MG ORAL TABLET 2 tabs daily for 3 days, 1 tab daily for 3 days, 1/2 tab daily for 2 days PREDNISONE 20 MG ORAL T ABLET 787665 PREDNISONE Inactive AVELOX 400 MG ORAL TABLET 1 tab by mouth daily AVELOX 400 MG ORAL TABLET 518752 MOXIFLOXACIN HCL Inactive AVELOX 400 MG ORAL TABLET 1 tab by mouth daily AVELOX 400 MG ORAL TABLET 283701 MOXIFLOXACIN HCL Inactive PREDNISONE 20 MG ORAL TABLET Take 3 tabs daily for 3 d ays, 2 tabs daily for 3 days, 1 tab daily for 3 days, 1/2 tab daily for 3 days 11/07 PREDNISONE 20 MG ORAL TABLET 012914 PREDNISONE Inactive LEVAQUIN 500 MG ORAL TABLET take one po QD LEVAQUIN 500 MG ORAL TABLET 848855 LEVOFLOXACIN Inactive AZITHROMYCIN 250 MG ORAL TABLET 2 po qd x 1 day, then 1 po q d x 4 days AZITHROMYCIN 250 MG ORAL TABLET 332842 AZITHROMY GIOVANNI Inactive MEDROL 4 MG ORAL TABLET THERAPY PACK 6 tabs on day 1, 5 tabs on day 2, 4 tabs on day 3, 3 tabs on day 4, 2 tabs on day 5, 1 tab on day 6 2013 MEDROL 4 MG ORAL TABLET THERAPY PACK 013952 METHYLPREDNISOLONE [place] ctive CHERATUSSIN AC 100-10 MG/5ML ORAL SYRUP 5ml po q6hr PRN Cough 20 13/04/14 CHERATUSSIN AC 100-10 MG/5ML ORAL SYRUP 793678 GUAIFENE SIN-CODEINE Inactive TRIAMCINOLONE ACETONIDE 0.1 % EXTERNAL CREAM apply three roger es daily prn rash TRIAMCINOLONE ACETONIDE 0.1 % EXTERNAL CREAM 101 4314 TRIAMCINOLONE ACETONIDE Inactive AZITHROMYCIN 250 MG ORAL TABLET 2 po qd x 1 day, then 1 po q d x 4 days AZITHROMYCIN 250 MG ORAL TABLET 637775 AZITHROMY GIOVANNI Inactive MEDROL 4 MG ORAL TABLET THERAPY PACK 6 pills x 1 day, then 5 pills x 1 day then 4 pills x 1 day, then 3 pills x 1 day, then 2 pills x 1 day, then 1 pill x 1 day, then stop MEDROL 4 MG ORAL TABLET THERAPY PACK 423075 METHYLPREDNISOLONE Inactive AMOXICILLIN 500 MG ORAL CAPSULE 1 tab by mouth 3 times daily x 10 days AMOXICILLIN 500 MG ORAL CAPSULE 074398 AMOXICILL IN Inactive AMOXICILLIN 500 MG ORAL CAPSULE 1 tab by mouth 3 times daily x 10 days AMOXICILLIN 500 MG ORAL CAPSULE 584007 AMOXICILL IN Inactive ZITHROMAX 250 MG ORAL TABLET 2 po today, then 1 po q days 2-5 20 12/08/14 ZITHROMAX 250 MG ORAL TABLET 783820 AZITHROMYCIN [place] ctive AUGMENTIN 875-125 MG ORAL TABLET 1 po BID x 10 days 20 13/01/20 AUGMENTIN 875-125 MG ORAL TABLET 447774 AMOXICILLIN-POT CLAVULANATE Inactive ZITHROMAX Z-REYNA 250 MG ORAL TABLET 2 today, then 1 daily for 4 d ays ZITHROMAX Z-RYENA 250 MG ORAL TABLET 854016 AZITHROMYCIN Inactive ZITHROMAX 250 MG ORAL TABLET 2 po today, then 1 po q days 2-5 20 14/03/21 ZITHROMAX 250 MG ORAL TABLET 642306 AZITHROMYCIN [place] ctive ZITHROMAX Z-REYNA 250 MG ORAL TABLET 2 today, then 1 daily for 4 d ays ZITHROMAX Z-REYNA 250 MG ORAL TABLET 306016 AZITHROMYCIN Inactive CEFDINIR 300 MG ORAL CAPSULE 1 po BID x 10 days 06/21 CEFDINIR 300 MG ORAL CAPSULE 20020704 CEFDINIR Inactive ZITHROMAX 250 MG ORAL TABLET 2 po today, then 1 po q days 2-5 20 13/08/10 ZITHROMAX 250 MG ORAL TABLET 057721 AZITHROMYCIN [place] ctive LEVAQUIN 500 MG ORAL TABLET 1 tablet by mouth daily 13/09/24 LEVAQUIN 500 MG ORAL TABLET 19971102 LEVOFLOXACIN Inactive SINGULAIR 10 MG ORAL TABLET 1 po qday for allergies 20 14/01/12 SINGULAIR 10 MG ORAL TABLET 20010504 MONTELUKAST SODIUM Inactive AMOXICILLIN 500 MG ORAL CAPSULE 2 po BID x 10 days 201 09/29/08 AMOXICILLIN 500 MG ORAL CAPSULE 115764 AMOXICILLIN Inactive PREDNISONE 20 MG ORAL TABLET 2 tabs daily for 3 days, 1 tab daily for 3 days, 1/2 tab daily for 2 days PREDNISONE 20 MG ORAL T ABLET 064967 PREDNISONE Inactive ZITHROMAX Z-REYNA 250 MG ORAL TABLET 2 today, then 1 daily for 4 d ays ZITHROMAX Z-REYNA 250 MG ORAL TABLET 194987 AZITHROMYCIN Inactive PREDNISONE 20 MG ORAL TABLET 2 tabs daily for 3 days, 1 tab daily for 3 days, 1/2 tab daily for 2 days PREDNISONE 20 MG ORAL T ABLET 065546 PREDNISONE Inactive ZITHROMAX 250 MG ORAL TABLET 2 po today, then 1 po q days 2-5 20 14/09/04 ZITHROMAX 250 MG ORAL TABLET 943656 AZITHROMYCIN Greer ctive AMOXICILLIN 500 MG ORAL CAPSULE 1 cap by mouth three times a day AMOXICILLIN 500 MG ORAL CAPSULE 489696 AMOXICILLIN Inactive TERBINAFINE HCL 250 MG ORAL TABLET 1 qDay for nail fungus 7 TERBINAFINE HCL 250 MG ORAL TABLET 916044 TERBINAFINE HCL Inact nael AUGMENTIN 875-125 MG ORAL TABLET 1 po BID x 10 days 16/03/22 AUGMENTIN 875-125 MG ORAL TABLET 085178 AMOXICILLIN-POT CLAVULANATE Inactive PREDNISONE 20 MG ORAL TABLET 2 po qd x 5 days PREDNISONE 20 MG ORAL TABLET 153274 PREDNISONE Inactive Vital Signs Date Name Value [...] - Chem istry sodium, serum 142 mmol/L 601-052 7817/07/17 potassium, serum 4.2 mmol/L 3.5-5.2 chloride, serum 106 mmol/L 98-107 carbon dioxide, venous blood 29.9 mmol/L 21.0-32 .0 blood glucose 108 mg/dL 65-110 calcium, serum 9.1 mg/dL 8.5-10.1 urea nitrogen, blood 11 mg/dL 7-18 creatinine, serum 0.81 mg/dL 0.60-1.30 sodium, serum 139 mmol/L 714-715 5318/03/19 potassium, serum 3.6 mmol/L 3.5-5.2 chloride, serum 100 mmol/L 98-107 carbon dioxide, venous blood 30.3 mmol/L 21.0-32 .0 blood glucose 101 mg/dL 65-110 calcium, serum 9.4 mg/dL 8.5-10.1 urea nitrogen, blood 10 mg/dL 7-18 creatinine, serum 0.96 mg/dL 0.60-1.30 Encounters Code Encounter Date Provider Facility CPT-91205 Level 3 Est. Patient 11:34:49 MAINFRAME SYSTEMS PROGRAMMER Perez Mora MD [facility] CPT-44581 Level 4 Est. Patient 09:51:32 MAINFRAME SYSTEMS PROGRAMMER Carlton rich MD [facility] CPT-62467 Level 3 Est. Patient 10:26:00 MAINFRAME SYSTEMS PROGRAMMER Elise stephenson APRN [facility] CPT-59552 Level 3 Est. Patient 13:35:41 MAINFRAME SYSTEMS PROGRAMMER Carlton rich MD [facility] CPT-12235 Level 3 Est. Patient 10:03:52 MAINFRAME SYSTEMS PROGRAMMER Carlton rich MD [facility] CPT-33422 Level 3 Est. Patient 12:17:50 CDT Hugo Restrepo MD [facility] CPT-24463 Level 3 Est. Patient 13:42:38 CDT Elise Are [facility] CPT-14644 Level 3 Est. Patient 13:23:51 CDT Diya cobian [facility] CPT-78489 Level 3 Est. Patient 14:22:19 MAINFRAME SYSTEMS PROGRAMMER Diya Mariana cobian [facility] CPT-41897 Level 3 Est. Patient 10:11:46 CDT Carlton rich MD [facility] CPT-19915 Level 3 Est. Patient 17:29:43 CDT Elise Are [facility] CPT-11574 Level 3 Est. Patient 11:58:06 CDT Elise Are [facility] CPT-87578 Level 4 Est. Patient 14:36:51 CDT Carlton rich MD [facility] CPT-50146 Level 3 Est. Patient 18:16:00 MAINFRAME SYSTEMS PROGRAMMER Blaine HERNANDEZ [facility] CPT-81466 Level 3 Est. Patient 09:45:49 MAINFRAME SYSTEMS PROGRAMMER Carlton rich MD [facility] CPT-41845 Level 3 Est. Patient 13:19:20 CDT Carlton rich MD [facility] CPT-95823 Level 3 Est. Patient 13:06:43 CDT Ridge tam DO [facility] CPT-14675 Level 3 Est. Patient 10:03:07 CDT Perez Mora MD [facility] CPT-10860 Level 3 Est. Patient 19:50:35 MAINFRAME SYSTEMS PROGRAMMER Carlton rich MD [facility] CPT-18017 Level 4 Est. Patient 18:05:01 MAINFRAME SYSTEMS PROGRAMMER Carlton rich MD [facility] CPT-49911 Level 3 Est. Patient 10:45:55 MAINFRAME SYSTEMS PROGRAMMER Hugo Restrepo MD [facility]-61901 Level 3 Est. Patient 14:12:49 CDT Griffin HERNANDEZ [facility]-45141 Level 3 Est. Patient 17:37:24 CDT Carlton rich MD [facility]-55138 Level 3 Est. Patient 16:51:54 CDT Carlton rich MD [facility]-89524 Level 3 Est. Patient 12:18:11 CDT Hugo Restrepo MD [facility]-84903 Level 3 Est. Patient 11:30:25 CDT Marcy crisostomo MD PhD [facility]-46303 Level 3 Est. Patient 12:00:47 MAINFRAME SYSTEMS PROGRAMMER Carlton rich MD [facility]-08787 Level 3 Est. Patient 16:31:06 MAINFRAME SYSTEMS PROGRAMMER Carlton rich MD [facility] CPT-26064 Level 3 Est. Patient 16:23:24 MAINFRAME SYSTEMS PROGRAMMER Ridge tam [facility]-41488 Level 3 Est. Patient 12:34:12 CDT Carlton rich MD [facility]-92559 Level 2 Est. Patient 15:43:33 CDT Robi armstrong MD [facility]-20061 Level 4 Est. Patient 14:04:44 CDT Carlton rich MD [facility]-02236 Level 3 Est. Patient 05:47:59 CDT Ridge tam [facility]-47469 Level 3 Est. Patient 13:12:53 MAINFRAME SYSTEMS PROGRAMMER Carlton rich MD [facility]-61553 Level 3 Est. Patient 14:26:53 CDT Hugo Restrepo MD [facility] Procedures Code Procedure Name Date Entry Date Standard Desc ription CPT-000 Give Appropriate Flu Vaccine 14:14:31 CDT 2 CPT-J1040 Depo Medrol 80 mg (Methyl Prednisolone A cetate) 10:42:44 CDT CPT-J1100 Decadron 8mg (Dexamethasone) 10:42:44 CDT 2 CPT-J0696 Rocephin 1gm Inj Solr 14:32:13 CDT CPT-J1020 Depo Medrol 60 mg (Methyl Prednisolone A cetate) 14:32:13 CDT CPT-J1100 Decadron 6mg (Dexamethasone) 14:32:13 CDT 2 CPT-96958 Hip bilat min 2V w AP pelvis 13:16:20 CDT 2 CPT-90867 Pelvis only 13:07:33 CDT CPT-88634 Spec Collection and Handling Fee 11:25:12 C DT CPT-82431 Fluzone Quadrivalent Intramuscular Suspe nsion 0.5 ML 14:31:55 CDT CPT-00959 Abx/Therapy Injection 13:28:47 MAINFRAME SYSTEMS PROGRAMMER CPT-J2930 Solu Medrol 125 mg (Methyl Prednisolone Sodium Succinate) 12:00:47 MAINFRAME SYSTEMS PROGRAMMER CPT-72746 Venipuncture Draw Fee 11:33:31 CDT CPT-40188 EKG Trac and Interp 11:21:09 CDT CPT-45547 Chest 2V Frontal and Lat 11:21:09 CDT 12/15 CPT-20094 Venipuncture Draw Fee 08:02:34 CDT CPT-41780 Chest 2V Frontal and Lat 05:47:59 CDT 06/05
[2019-10-08] MEDS ORDERED: BSS 15 ML ONE (08:06)
[2019-10-08] MEDS ORDERED: COCAINE HCL 4% 2 ML SYR ONE (08:06)
[2019-10-08] MEDS ORDERED: PHENYLEPHRINE 0.5% NASAL SPR (NEO-SYNEPHRINE) REG ONE (08:06)
[2019-10-08] MEDS ORDERED: MUPIROCIN 2% OINT 22 GM (BACTROBAN) TUBE ONE (08:06)
--- OUTSIDE RECORDS SUMMARY | 2019-10-08 08:06 | XMS REPORT | Clinical Summary ---
Author Author Caitlin, Juliana Martinez Organization [facility] Address Unknown Phone Unavailable Allergies, Adverse Reactions, Alerts Allergy Name Reaction Description Start Date Severity Status Pr ovider No Known Allergies Shyann Bueno MA Conditions or Problems Problem Name Problem Code [...] region and thigh Pelvic pain, acute 789.09 Active Ridge Bess DO Abdominal pain, other specified site; multiple sites Sinusitis 473.9 Active Diya 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 Unspecified sinusitis (chronic) Bronchitis-Acute 466.0 Active Carlton Hu MD Acute bronchitis URI - acute 465.9 Active Elise Whitmore [employer] REPAIRER Acute upper respiratory infections of unspecified site Pharyngitis acute 462 Active Elise Whitmore A PRN Acute pharyngitis Rhinitis, acute 460 Active Elise Whitmore APR N Acute nasopharyngitis [common cold] Sinusitis 473.9 Active Diya 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 Unspecified sinusitis (chronic) Bronchitis 490 Active 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 Bronchitis, not specified as acute or chronic BRONCHITIS ICD-490 Inactive Hugo Restrepo MD 201 [...] SINUSITIS, ACUTE ICD-461.9 Inactive Hugo dominguez MD Medication List Medication Instructions Start Date Stop Date Generic Name NDC Status Provider Patient Instruction PROAIR HFA 108 (90 BASE) MCG/ACT AERS 2 puffs four times a d ay as needed ALBUTEROL SULFATE [id number] Active Jillina Frakerriel APR N Active MUCINEX DM MAXIMUM STRENGTH 60-1200 MG [id number] 1 tab po q am 2016 DEXTROMETHORPHAN-GUAIFENESIN 65052171867 Active Jillina Frazell [employer]ER REPAIRER Active TUSSIONEX PENNKINETIC ER 10-8 MG/5ML LQCR 5ml po q12hr PRN Cough 20 14/06/21 HYDROCOD POLST-CHLORPHEN POLST 54577270516 Active Jillina Frakerriel [employer] REPAIRER Active PREDNISONE 20 MG TAB 2 tabs daily for 3 days, 1 t ab daily for 3 days, 1/2 tab daily for 2 days PREDNISONE 32212024915 Active Jillina Cesarl [employer]ER REPAIRER Active TUSSIONEX PENNKINETIC ER 10-8 MG/5ML ORAL LQCR 5 mL PO q 12 hrs PRN cough HYDROCOD POLST-CHLORPHEN POLST 84198987816 No Longer Active Jillina Frazell [employer]ER REPAIRER Active FLUTICASONE PROPIONATE 50 MCG/ACT SUSP 2 sprays each n ostril daily until bottle is empty FLUTICASONE PROPIONATE 24029742811 No Longer Ac tive Jillina Daphnezell [employer]ER REPAIRER Active ASMANEX 60 METERED DOSES 220 MCG/INH AEPB 1 puff bid with ri nse after MOMETASONE FUROATE 93465859158 No Longer Active Venullina Darlin meneses [employer]ER REPAIRER Active ZITHROMAX Z-REYNA 250 MG TABS 2 today, then 1 daily for 4 days 201 09/29/14 AZITHROMYCIN 53670412748 No Longer Active Elise Whitmore APRN Active TUSSIONEX PENNKINETIC ER 10-8 MG/5ML LQCR 5ml po q12hr PRN Cough HYDROCOD POLST-CHLORPHEN POLST 74941931593 No Longer Active Elise Whitmore APRN Active MUCINEX D 60-600 MG [id number] 1 tab po q am PSEUDOEPHEDRINE-GUAIFENESIN 56148049742 Active Jillina Frazell [employer]ER REPAIRER Active PREDNISONE 20 MG TAB 2 tabs daily for 3 days, 1 t ab daily for 3 days, 1/2 tab daily for 2 days PREDNISONE 03467957683 No Longer Active Jillina Frazell [employer]ER REPAIRER Active AMOXICILLIN 500 MG CAPS 2 po BID x 10 days AMOX ICILLIN 72256311048 No Longer Active Jillina Frazell [employer]ER REPAIRER Active SINGULAIR 10 MG TABS 1 po qday for allergies 2 MONTELUKAST SODIUM 93389626105 No Longer Active Carlton Hu MD Acti ve LEVAQUIN 500 MG TAB 1 tablet by mouth daily LEV OFLOXACIN 96480325327 No Longer Active Carlton Hu MD Active FLUTICASONE PROPIONATE 50 MCG/ACT SUSP 2 sprays each n ostril daily for 2 weeks, then 1 spray each nostril daily. FLUTICASONE PRO PIONATE 17393046049 Active Elise Whitmore APRN Active ZITHROMAX 250 MG TAB 2 po today, then 1 po q days 2-5 AZITHROMYCIN 79641734032 No Longer Active Elise Whitmore APRN Acti ve XANAX 0.5 MG TABS one tablet by mouth daily prn anxiety ALPRAZOLAM 51764113473 Active Elise Whitmore APRN Active CYMBALTA 30 MG CPEP 1 cap by mouth daily for depression DULOXETINE HCL 00670964111 Active Carlton Hu MD Active CEFDINIR 300 MG CAPS 1 po BID x 10 days CEFDINI R 43149310076 No Longer Active Carlton Hu MD Active ZOCOR 40 MG TAB 1 tab by mouth daily SIMVASTATI N 23432428250 No Longer Active Carlton Hu MD Active CYCLOBENZAPRINE HCL 10 MG TABS 1 tablet by mouth BID prn had cherlele n CYCLOBENZAPRINE HCL 08986861664 No Longer Active Carlton Hu MD Active LEVOFLOXACIN 500 MG ORAL TABS 1 tab PO daily x 10 days LEVOFLOXACIN 00200186047 No Longer Active Carlton Hu MD Acti ve PREDNISONE 20 MG ORAL TABS 3 tab PO qd x 2d, 2 tab PO qd x 2d, 1 tab PO qd x 2d, 1/2 tab PO qd x 2d PREDNISONE 41783090742 No Longer Active Carlton Hu MD Active FLUTICASONE PROPIONATE 50 MCG/ACT SUSP 1 to 2 sprays each no stril daily FLUTICASONE PROPIONATE 65755638899 No Longer Active T jaz HERNANDEZ Active CHERATUSSIN AC 100-10 MG/5ML SYRP 1 tsp by mouth every 4 hours as needed for cough GUAIFENESIN-CODEINE 71788597548 No Longer Activ e Blaine HERNANDEZ Active PROMETHAZINE-CODEINE 6.25-10 MG/5ML SYRP 1 tsp by mout h every 6 hours if needed for cough PROMETHAZINE-CODEINE 86555486058 No Long er Active Blaine HERNANDEZ Active CHERATUSSIN AC 100-10 MG/5ML SYRP 1 tsp by mouth every 4 hours as needed for cough GUAIFENESIN-CODEINE 53418875671 No Longer Activ e Blaine HERNANDEZ Active ZITHROMAX Z-REYNA 250 MG TABS 2 today, then 1 daily for 4 days 201 08/30/03 AZITHROMYCIN 87968846731 No Longer Active Columba Parrish Act nael ZITHROMAX 250 MG TAB 2 po today, then 1 po q days 2-5 AZITHROMYCIN 87604917331 No Longer Active Carlton Hu MD Acti ve ZITHROMAX Z-REYNA 250 MG TABS 2 today, then 1 daily for 4 days 201 08/07/20 AZITHROMYCIN 90595661770 No Longer Active Columba Parrish Act nael AUGMENTIN 875-125 MG TAB 1 po BID x 10 days AMOXICILLIN- POT CLAVULANATE 63346073610 No Longer Active Diya De Guzman APRN Active ZITHROMAX 250 MG TAB 2 po today, then 1 po q days 2-5 AZITHROMYCIN 06255108150 No Longer Active Carlton Hu MD Acti ve TRAMADOL HCL 50 MG TABS 1 po tid with ES Tylenol TRAMADOL HCL 17374506682 Active Carlton Hu MD Active PREMARIN 0.625 MG TABS TAKE 1 TAB BY MOUTH DAILY 07/25 ESTROGENS CONJUGATED 86601670593 No Longer Active Ridge Bess DO Active CYMBALTA 30 MG CPEP 1 cap by mouth daily DULOXE SNEHA HCL 86305797908 No Longer Active Ridge Bess DO Active AMOXICILLIN 500 MG CAP 1 tab by mouth 3 times daily x 10 days 20 14/04/28 AMOXICILLIN 67262660275 No Longer Active Carlton Hu MD Active AMOXICILLIN 500 MG CAP 1 tab by mouth 3 times daily x 10 days 20 13/03/08 AMOXICILLIN 88159313476 No Longer Active Carlton Hu MD Active PROMETHAZINE-CODEINE 6.25-10 MG/5ML SYRP 1 tsp by mouth ever y 8 hours prn cough PROMETHAZINE-CODEINE 61719231756 No Longer Active Robert Hu MD Active MEDROL (REYNA) 4 MG TABS 6 pills x 1 day, then 5 pill s x 1 day then 4 pills x 1 day, then 3 pills x 1 day, then 2 pills x 1 day, then 1 pill x 1 day, then stop METHYLPREDNISOLONE 83502802397 No Longer Active Parris Mora MD Active AZITHROMYCIN 250 MG TABS 2 po qd x 1 day, then 1 po qd x 4 days AZITHROMYCIN 97278734471 No Longer Active Perez Mora MD Active SYMBICORT 160-4.5 MCG/ACT AERO 2 puffs bid with rinse after 2011 BUDESONIDE-FORMOTEROL FUMARATE 08677005511 No Longer Active Perez Mora MD Active LYRICA 75 MG CAPS TAKE 1 CAPSULE BY MOUTH TWICE DAILY 2013 PREGABALIN 81290726729 No Longer Active Carlton Hu MD Active LYRICA 100 MG CAPS Take 1 tab po BID for fibromyalgia PREGABALIN 50391254302 Active Carlton Hu MD Active TOPAMAX 25 MG TABS 1 qHS x 1 week, then 1 BID x 1 week, then 1 qAM and 2 qHS x 1 week, then 2 BID (migraine prevention) TOPIRAMAT E 83704042987 No Longer Active Jerica FUENTES Active TOPAMAX 50 MG TABS take 1 tab po BID for migraines. 12/07/10 TOPIRAMATE 39961450722 No Longer Active Jerica AGUILARA Ac tive TOPAMAX 100 MG TABS Take 1 tablet po bid TOPIRAMATE 4999 5296444 Active Elise Whitmore APRN Active TRIAMCINOLONE ACETONIDE 0.1 % CREA apply three times daily prn r beatrice TRIAMCINOLONE ACETONIDE 30840688597 No Longer Active Carlton Hu MD Active PAXIL 40 MG TAB take 1 tab po qday for depression PAROXETINE HCL 29453425225 Active Elise Whitmore APRN Active CHERATUSSIN AC 100-10 MG/5ML SYRP 5ml po q6hr PRN Cough GUAIFENESIN-CODEINE 18576574136 No Longer Active Carlton Hu MD Active MEDROL (REYNA) 4 MG TABS 6 tabs on day 1, 5 tabs on d ay 2, 4 tabs on day 3, 3 tabs on day 4, 2 tabs on day 5, 1 tab on day 6 METHYLPREDNISOLONE 63044076949 No Longer Active Perez Mora MD Active AZITHROMYCIN 250 MG TABS 2 po qd x 1 day, then 1 po qd x 4 days AZITHROMYCIN 97132458310 No Longer Active Perez Mora MD Active PROPRANOLOL HCL 60 MG TABS 1 PO Q D PROPRANOL OL HCL 42915872316 No Longer Active Perez Mora MD Active CHERATUSSIN AC 100-10 MG/5ML SYRP take one tsp po Q 6hours prn c ough GUAIFENESIN-CODEINE 19021386952 No Longer Active Perez Measn Active AUGMENTIN 875-125 MG TAB 1 tab by mouth twice daily with food 20 12/03/31 AMOXICILLIN-POT CLAVULANATE 40048085047 No Longer Active Chanel Mora MD Active CHERATUSSIN AC 100-10 MG/5ML SYRP 1 tsp by mouth every 4 hours as needed for cough GUAIFENESIN-CODEINE 93273540079 No Longer Activ e Hugo Restrepo MD Active ACETAMINOPHEN-CODEINE #3 300-30 MG TABS 1 PO Q 4-6 HRS PRN PAIN ACETAMINOPHEN-CODEINE 59004043887 No Longer Active Hugo Restrepo MD Active LEVAQUIN 500 MG TABS take one po QD LEVOFLOXACI N 66357367323 No Longer Active Griffin HERNANDEZ Active PREDNISONE 20 MG TAB Take 3 tabs daily for 3 days , 2 tabs daily for 3 days, 1 tab daily for 3 days, 1/2 tab daily for 3 days P REDNISONE 58814978122 No Longer Active Carlton Hu MD Active AVELOX 400 MG TABS 1 tab by mouth daily MOXIFLO XACIN HCL 27603690807 No Longer Active Carlton Hu MD Active CHERATUSSIN AC 100-10 MG/5ML SYRP 1 tsp by mouth every 4 hours as needed for cough GUAIFENESIN-CODEINE 35221960338 No Longer Activ e Hugo Restrepo MD Active AVELOX 400 MG TABS 1 tab by mouth daily MOXIFLO XACIN HCL 40277479825 No Longer Active Marcy De La Rosa MD PhD Active TERBINAFINE HCL 250 MG TABS 1 qDay TERBINAF INE HCL 52662687532 No Longer Active Marcy De La Rosa MD PhD Active CHERATUSSIN AC 100-10 MG/5ML SYRP 1 tsp by mouth every 4 hours as needed for cough GUAIFENESIN-CODEINE 66228408531 No Longer Activ e Marcy De La Rosa MD PhD Active AVELOX 400 MG TABS 1 tab by mouth daily MOXIFLO XACIN HCL 32026052811 No Longer Active Marcy De La Rosa MD PhD Active HYDROCODONE-ACETAMINOPHEN 5-325 MG TABS 1 po q 6hr PRN cough 201 05/09/16 HYDROCODONE-ACETAMINOPHEN 65876897617 No Longer Active Marcy De La Rosa MD PhD Active PREDNISONE 20 MG TAB 2 tabs daily for 3 days, 1 t ab daily for 3 days, 1/2 tab daily for 2 days PREDNISONE 44633563028 No Longer Active Carlton Hu MD Active CEFDINIR 300 MG CAPS by mouth twice a day CEFDI ODILIA 71923166965 No Longer Active Carlton Hu MD Active HYDROCHLOROTHIAZIDE 25 MG TABS 1 TAB PO DAILY H YDROCHLOROTHIAZIDE 22553845111 Active Carlton Hu MD Active ACETAMINOPHEN-CODEINE #3 300-30 MG TABS 1 tablet po q 4-6hrs prn pain ACETAMINOPHEN-CODEINE 72980625102 No Longer Active Ridge Bess DO Active ZITHROMAX 250 MG TAB 2 po today, then 1 po q days 2-5 AZITHROMYCIN 86565321163 No Longer Active Carlton Hu MD Acti ve CHERATUSSIN AC 100-10 MG/5ML SYRP take 1 tsp po q4-6 hours prn c ough GUAIFENESIN-CODEINE 75105418300 No Longer Active Carlton Hu MD Active ACETAMINOPHEN-CODEINE #3 300-30 MG TABS 1 PO Q 4-6 HR PRN PAIN 2 ACETAMINOPHEN-CODEINE 10933820486 No Longer Active Carlton rich MD Active LORTAB 7.5-500 MG/15ML ELIX 7.5 ml po q 4 hour prn cough HYDROCODONE-ACETAMINOPHEN 72063704116 No Longer Active Carlton Hu MD Active PREDNISONE 20 MG TAB 1 po bid 3 days, then 1 po q day 3 days 201 05/03/07 PREDNISONE 62855003002 No Longer Active Carlton Hu MD Active ELMIRON 100 MG CAPS 2 tablets in the am and 1 tablet at hs PENTOSAN POLYSULFATE SODIUM 22763865606 Active Carlton Hu MD Ac tive CEFDINIR 300 MG CAPS by mouth twice a day CEFDI ODILIA 82459996445 No Longer Active Carlton Hu MD Active CEFDINIR 300 MG CAPS by mouth twice a day CEFDI ODILIA 92872699666 No Longer Active Carlton Hu MD Active CEFDINIR 300 MG CAPS by mouth twice a day CEFDI ODILIA 13298406375 No Longer Active Carlton Hu MD Active TESSALON PERLES 100 MG CAP 1 tablet by mouth 3 times daily a s needed for cough BENZONATATE 75100090910 No Longer Active Carlton bustamante MD Active CEFDINIR 300 MG CAPS by mouth twice a day CEFDI ODILIA 12780385646 No Longer Active Carlton Hu MD Active ZITHROMAX Z-REYNA 250 MG TABS 2 today, then 1 daily for 4 days 201 04/09/17 AZITHROMYCIN 72286041749 No Longer Active Hugo Restrepo MD Active TESSALON PERLES 100 MG CAP 1 tablet by mouth 3 times daily a s needed for cough TESSALON PERLES 100 MG CAP 507096 BENZONATATE I nactive PREDNISONE 20 MG TAB 1 po bid 3 days, then 1 po q day 3 days 201 05/03/07 PREDNISONE 20 MG TAB 049792 PREDNISONE Inactive LORTAB 7.5-500 MG/15ML ELIX 7.5 ml po q 4 hour prn cough LORTAB 7.5-500 MG/15ML ELIX HYDROCODONE-ACETAMINOPHEN Inacti ve ACETAMINOPHEN-CODEINE #3 300-30 MG TABS 1 PO Q 4-6 HR PRN PAIN 2 ACETAMINOPHEN-CODEINE #3 300-30 MG TABS 019540 ACETAMIN OPHEN-CODEINE Inactive CHERATUSSIN AC 100-10 MG/5ML SYRP take 1 tsp po q4-6 hours prn c ough CHERATUSSIN AC 100-10 MG/5ML SYRP 234448 GUAIFENESIN-CO DEINE Inactive ACETAMINOPHEN-CODEINE #3 300-30 MG TABS 1 tablet po q 4-6hrs prn pain ACETAMINOPHEN-CODEINE #3 300-30 MG TABS 985895 ACETAMIN OPHEN-CODEINE Inactive HYDROCODONE-ACETAMINOPHEN 5-325 MG TABS 1 po q 6hr PRN cough 201 05/09/16 HYDROCODONE-ACETAMINOPHEN 5-325 MG TABS 797925 HYDROCODONE-ACETAMINOPHEN Inactive AVELOX 400 MG TABS 1 tab by mouth daily A VELOX 400 MG TABS 456757 MOXIFLOXACIN HCL Inactive CHERATUSSIN AC 100-10 MG/5ML SYRP 1 tsp by mouth every 4 hours as needed for cough CHERATUSSIN AC 100-10 MG/5ML SYRP 397829 GUAIFENESIN-CODEINE Inactive TERBINAFINE HCL 250 MG TABS 1 qDay TERBINAFINE HCL 250 MG TABS 905287 TERBINAFINE HCL Inactive CHERATUSSIN AC 100-10 MG/5ML SYRP 1 tsp by mouth every 4 hours as needed for cough CHERATUSSIN AC 100-10 MG/5ML SYRP 717934 GUAIFENESIN-CODEINE Inactive ACETAMINOPHEN-CODEINE #3 300-30 MG TABS 1 PO Q 4-6 HRS PRN PAIN ACETAMINOPHEN-CODEINE #3 300-30 MG TABS 987637 ACETAMINOPHEN-CODEIN E Inactive CHERATUSSIN AC 100-10 MG/5ML SYRP 1 tsp by mouth every 4 hours as needed for cough CHERATUSSIN AC 100-10 MG/5ML SYRP 112728 GUAIFENESIN-CODEINE Inactive AUGMENTIN 875-125 MG TAB 1 tab by mouth twice daily with food 20 12/03/31 AUGMENTIN 875-125 MG TAB 455158 AMOXICILLIN-POT CLAVULA EFE Inactive CHERATUSSIN AC 100-10 MG/5ML SYRP take one tsp po Q 6hours prn c ough CHERATUSSIN AC 100-10 MG/5ML SYRP 067690 GUAIFENESIN-CO DEINE Inactive PROPRANOLOL HCL 60 MG TABS 1 PO Q D P ROPRANOLOL HCL 60 MG TABS 138687 PROPRANOLOL HCL Inactive TOPAMAX 50 MG TABS take 1 tab po BID for migraines. 12/07/10 TOPAMAX 50 MG TABS 666651 TOPIRAMATE Inactive TOPAMAX 25 MG TABS 1 qHS x 1 week, then 1 BID x 1 week, then 1 qAM and 2 qHS x 1 week, then 2 BID (migraine prevention) TOPAMAX 2 5 MG TABS 492526 TOPIRAMATE Inactive LYRICA 75 MG CAPS TAKE 1 CAPSULE BY MOUTH TWICE DAILY LYRICA 75 MG CAPS PREGABALIN Inactive SYMBICORT 160-4.5 MCG/ACT AERO 2 puffs bid with rinse after 2011 SYMBICORT 160-4.5 MCG/ACT AERO BUDESONIDE-FORMOT SÁNCHEZ FUMARATE Inactive PROMETHAZINE-CODEINE 6.25-10 MG/5ML SYRP 1 tsp by mouth ever y 8 hours prn cough PROMETHAZINE-CODEINE 6.25-10 MG/5ML SYRP 993931 PROMETHAZINE-CODEINE Inactive CYMBALTA 30 MG CPEP 1 cap by mouth daily CYMBALTA 30 MG CPEP 206826 DULOXETINE HCL Inactive PREMARIN 0.625 MG TABS TAKE 1 TAB BY MOUTH DAILY 07/25 PREMARIN 0.625 MG TABS ESTROGENS CONJUGATED Inactive CHERATUSSIN AC 100-10 MG/5ML SYRP 1 tsp by mouth every 4 hours as needed for cough CHERATUSSIN AC 100-10 MG/5ML SYRP 367921 GUAIFENESIN-CODEINE Inactive PROMETHAZINE-CODEINE 6.25-10 MG/5ML SYRP 1 tsp by mout h every 6 hours if needed for cough PROMETHAZINE-CODEINE 6.25-10 MG/5ML SYRP 296260 PROMETHAZINE-CODEINE Inactive CHERATUSSIN AC 100-10 MG/5ML SYRP 1 tsp by mouth every 4 hours as needed for cough CHERATUSSIN AC 100-10 MG/5ML SYRP 056188 GUAIFENESIN-CODEINE Inactive FLUTICASONE PROPIONATE 50 MCG/ACT SUSP 1 to 2 sprays each no stril daily FLUTICASONE PROPIONATE 50 MCG/ACT SUSP 3293258 FLUTICASONE PROPIONATE Inactive PREDNISONE 20 MG ORAL TABS 3 tab PO qd x 2d, 2 tab PO qd x 2d, 1 tab PO qd x 2d, 1/2 tab PO qd x 2d PREDNISONE 20 MG ORAL TABS 626965 PREDNISONE Inactive LEVOFLOXACIN 500 MG ORAL TABS 1 tab PO daily x 10 days LEVOFLOXACIN 500 MG ORAL TABS 369710 LEVOFLOXACIN Inactive CYCLOBENZAPRINE HCL 10 MG TABS 1 tablet by mouth BID prn had cherelle n CYCLOBENZAPRINE HCL 10 MG TABS 367567 CYCLOBENZAPRINE H CL Inactive ZOCOR 40 MG TAB 1 tab by mouth daily ZOCOR 40 M G TAB 196039 SIMVASTATIN Inactive TUSSIONEX PENNKINETIC ER 10-8 MG/5ML LQCR 5ml po q12hr PRN Cough TUSSIONEX PENNKINETIC ER 10-8 MG/5ML LQCR HYDROCOD POLST-CHLORPHEN POLST Inactive ASMANEX 60 METERED DOSES 220 MCG/INH AEPB 1 puff bid with ri nse after ASMANEX 60 METERED DOSES 220 MCG/INH AEPB MOMETASONE FUROATE Inactive FLUTICASONE PROPIONATE 50 MCG/ACT SUSP 2 sprays each n ostril daily until bottle is empty FLUTICASONE PROPIONATE 50 MCG/ACT SUSP 17 68525 FLUTICASONE PROPIONATE Inactive TUSSIONEX PENNKINETIC ER 10-8 MG/5ML ORAL LQCR 5 mL PO q 12 hrs PRN cough TUSSIONEX PENNKINETIC ER 10-8 MG/5ML ORAL LQCR HYDROCOD POLST-CHLORPHEN POLST Inactive ZITHROMAX Z-REYNA 250 MG TABS 2 today, then 1 daily for 4 days 201 04/09/17 ZITHROMAX Z-REYNA 250 MG TABS 0484113 AZITHROMYCIN Inac tive CEFDINIR 300 MG CAPS by mouth twice a day CEFDINIR 300 MG CAPS 20020704 CEFDINIR Inactive CEFDINIR 300 MG CAPS by mouth twice a day CEFDINIR 300 MG CAPS 20020704 CEFDINIR Inactive CEFDINIR 300 MG CAPS by mouth twice a day CEFDINIR 300 MG CAPS 20020704 CEFDINIR Inactive CEFDINIR 300 MG CAPS by mouth twice a day CEFDINIR 300 MG CAPS 20020704 CEFDINIR Inactive ZITHROMAX 250 MG TAB 2 po today, then 1 po q days 2-5 ZITHROMAX 250 MG TAB 6525199 AZITHROMYCIN Inactive CEFDINIR 300 MG CAPS by mouth twice a day CEFDINIR 300 MG CAPS 20020704 CEFDINIR Inactive PREDNISONE 20 MG TAB 2 tabs daily for 3 days, 1 t ab daily for 3 days, 1/2 tab daily for 2 days PREDNISONE 20 MG TAB 420285 PREDNISON E Inactive AVELOX 400 MG TABS 1 tab by mouth daily A VELOX 400 MG TABS 761171 MOXIFLOXACIN HCL Inactive AVELOX 400 MG TABS 1 tab by mouth daily A VELOX 400 MG TABS 969151 MOXIFLOXACIN HCL Inactive PREDNISONE 20 MG TAB Take 3 tabs daily for 3 days , 2 tabs daily for 3 days, 1 tab daily for 3 days, 1/2 tab daily for 3 days PREDNISONE 20 MG TAB 650823 PREDNISONE Inactive LEVAQUIN 500 MG TABS take one po QD LEVAQUIN 50 0 MG TABS 558542 LEVOFLOXACIN Inactive AZITHROMYCIN 250 MG TABS 2 po qd x 1 day, then 1 po qd x 4 days AZITHROMYCIN 250 MG TABS 7458117 AZITHROMYCIN Inactiv e MEDROL (REYNA) 4 MG TABS 6 tabs on day 1, 5 tabs on d ay 2, 4 tabs on day 3, 3 tabs on day 4, 2 tabs on day 5, 1 tab on day 6 MEDROL (REYNA) 4 MG TABS 517781 METHYLPREDNISOLONE Inactive CHERATUSSIN AC 100-10 MG/5ML SYRP 5ml po q6hr PRN Cough CHERATUSSIN AC 100-10 MG/5ML SYRP 803249 GUAIFENESIN-CODEINE Inacti ve TRIAMCINOLONE ACETONIDE 0.1 % CREA apply three times daily prn r beatrice TRIAMCINOLONE ACETONIDE 0.1 % CREA 1190314 TRIAMCINOLONE ACETONIDE Inactive AZITHROMYCIN 250 MG TABS 2 po qd x 1 day, then 1 po qd x 4 days AZITHROMYCIN 250 MG TABS 5491203 AZITHROMYCIN Inactiv e MEDROL (REYNA) 4 MG TABS 6 pills x 1 day, then 5 pill s x 1 day then 4 pills x 1 day, then 3 pills x 1 day, then 2 pills x 1 day, then 1 pill x 1 day, then stop MEDROL (REYNA) 4 MG TABS 008598 METHYLPREDNISOLONE Inactive AMOXICILLIN 500 MG CAP 1 tab by mouth 3 times daily x 10 days 20 13/03/08 AMOXICILLIN 500 MG CAP 173341 AMOXICILLIN Inactive AMOXICILLIN 500 MG CAP 1 tab by mouth 3 times daily x 10 days 20 14/04/28 AMOXICILLIN 500 MG CAP 108921 AMOXICILLIN Inactive ZITHROMAX 250 MG TAB 2 po today, then 1 po q days 2-5 ZITHROMAX 250 MG TAB 1962155 AZITHROMYCIN Inactive AUGMENTIN 875-125 MG TAB 1 po BID x 10 days AUGMENTIN 875- 125 MG TAB 717965 AMOXICILLIN-POT CLAVULANATE Inactive ZITHROMAX Z-REYNA 250 MG TABS 2 today, then 1 daily for 4 days 201 08/07/20 ZITHROMAX Z-REYNA 250 MG TABS 3710403 AZITHROMYCIN Inac tive ZITHROMAX 250 MG TAB 2 po today, then 1 po q days 2-5 ZITHROMAX 250 MG TAB 1607187 AZITHROMYCIN Inactive ZITHROMAX Z-REYNA 250 MG TABS 2 today, then 1 daily for 4 days 201 08/30/03 ZITHROMAX Z-REYNA 250 MG TABS 7858431 AZITHROMYCIN Inac tive CEFDINIR 300 MG CAPS 1 po BID x 10 days C EFDINIR 300 MG CAPS 173234 CEFDINIR Inactive ZITHROMAX 250 MG TAB 2 po today, then 1 po q days 2-5 ZITHROMAX 250 MG TAB 3843774 AZITHROMYCIN Inactive LEVAQUIN 500 MG TAB 1 tablet by mouth daily LEVAQUIN 500 MG TAB 621827 LEVOFLOXACIN Inactive SINGULAIR 10 MG TABS 1 po qday for allergies 2 SINGULAIR 10 MG TABS 087160 MONTELUKAST SODIUM Inactive AMOXICILLIN 500 MG CAPS 2 po BID x 10 days AMOXICILLIN 500 MG CAPS 632763 AMOXICILLIN Inactive PREDNISONE 20 MG TAB 2 tabs daily for 3 days, 1 t ab daily for 3 days, 1/2 tab daily for 2 days PREDNISONE 20 MG TAB 939950 PREDNISON E Inactive ZITHROMAX Z-REYNA 250 MG TABS 2 today, then 1 daily for 4 days 201 09/29/14 ZITHROMAX Z-REYNA 250 MG TABS 6811493 AZITHROMYCIN Inac tive Vital Signs Date Name Value Unit Range Description blood pressure, diastolic - 8462-4 77 mm[Hg] BP srinivasan blood pressure, systolic - 8480-6 124 mm[Hg] BP sys height E&M - 8302-2 53 [in_us] Bdy h eight pulse rate E&M - 8867-4 97 /min H eart rate temperature E&M 98.7 [degF] Body temp erature weight E&M - 3141-9 152.5 [lb_av] Weigh t Measured blood pressure, diastolic - 8462-4 78 mm[Hg] BP srinivasan blood pressure, systolic - 8480-6 116 mm[Hg] BP sys pulse rate E&M - 8867-4 108 /min H eart rate temperature E&M 98.1 [degF] Body temp erature weight E&M - 3141-9 150 [lb_av] Weigh t Measured blood pressure, diastolic - 8462-4 69 mm[Hg] BP srinivasan blood pressure, systolic - 8480-6 108 mm[Hg] BP sys pulse rate E&M - 8867-4 103 /min H eart rate temperature E&M 97.9 [degF] Body temp erature weight E&M - 3141-9 148 [lb_av] Weigh t Measured blood pressure, diastolic - 8462-4 67 mm[Hg] BP srinivasan blood pressure, systolic - 8480-6 100 mm[Hg] BP sys pulse rate E&M - 8867-4 87 /min H eart rate temperature E&M 98.1 [degF] Body temp erature weight E&M - 3141-9 139 [lb_av] Weigh t Measured blood pressure, diastolic - 8462-4 67 mm[Hg] BP srinivasan blood pressure, systolic - 8480-6 114 mm[Hg] BP sys pulse rate E&M - 8867-4 83 /min H eart rate temperature E&M 98.4 [degF] Body temp erature weight E&M - 3141-9 143 [lb_av] Weigh t Measured blood pressure, diastolic - 8462-4 73 mm[Hg] BP srinivasan blood pressure, systolic - 8480-6 113 mm[Hg] BP sys pulse rate E&M - 8867-4 90 /min H eart rate temperature E&M 98 [degF] Body temp erature weight E&M - 3141-9 141 [lb_av] Weigh t Measured Encounters Code Encounter Date Provider Facility CPT-56854 Level 3 Est. Patient 13:42:38 CDT [facility] CPT-85983 Level 3 Est. Patient 13:23:51 CDT Diya cobian [facility] CPT-65134 Level 3 Est. 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 Patient 10:11:46 CDT Carlton rich MD [facility] CPT-83951 Level 3 Est. Patient 17:29:43 CDT [facility] CPT-76339 Level 3 Est. Patient 11:58:06 CDT Elise Cesar chelly BILL [facility] CPT-08204 Level 4 Est. Patient 14:36:51 CDT Carlton rich MD [facility]-11468 Level 3 Est. Patient 18:16:00 WHEEL TUNER Blaine Freeman -[id number] Level 3 Est. Patient 09:45:49 WHEEL TUNER Carlton rich MD [facility]-90547 Level 3 Est. Patient 13:19:20 CDT Carlton rich MD [facility]-57492 Level 3 Est. Patient 13:06:43 CDT Ridge tam DO [facility] CPT-22364 Level 3 Est. Patient 10:03:07 CDT Perez Mora MD [facility]-43692 Level 3 Est. Patient 19:50:35 WHEEL TUNER Carlton rich MD [facility] CPT-94540 Level 4 Est. Patient 18:05:01 WHEEL TUNER Carlton rich MD [facility]-41671 Level 3 Est. Patient 10:45:55 WHEEL TUNER Hugo Restrepo MD [facility]-65132 Level 3 Est. Patient 14:12:49 CDT Griffin lincoln [facility]-02601 Level 3 Est. Patient 17:37:24 CDT Carlton rich MD [facility]-62755 Level 3 Est. Patient 16:51:54 CDT Carlton rich MD [facility]-22052 Level 3 Est. Patient 12:18:11 CDT Hugo Restrepo MD [facility]-16737 Level 3 Est. Patient 11:30:25 CDT Marcy crisostomo MD PhD [facility] CPT-57295 Level 3 Est. Patient 12:00:47 WHEEL TUNER Carlton rich MD [facility] CPT-92963 Level 3 Est. Patient 16:31:06 WHEEL TUNER Carlton rich MD [facility] CPT-47438 Level 3 Est. Patient 16:23:24 WHEEL TUNER [place] [facility] CPT-14096 Level 3 Est. Patient 12:34:12 CDT Carlton rich MD [facility] CPT-43061 Level 2 Est. Patient 15:43:33 CDT Robi armstrong MD [facility] CPT-82861 Level 4 Est. Patient 14:04:44 CDT Carlton rich MD [facility] CPT-36741 Level 3 Est. Patient 05:47:[address] [facility] CPT-51668 Level 3 Est. Patient 13:12:53 WHEEL TUNER Carlton rich MD [facility] CPT-75346 Level 3 Est. Patient 14:26:53 CDT Hugo Restrepo MD [facility] Procedures Code Procedure Name Date Entry Date Standard Desc ription CPT-J0696 Rocephin 1gm Inj Solr 14:32:13 CDT CPT-J1020 Depo Medrol 60 mg (Methyl Prednisolone A cetate) 14:32:13 CDT CPT-J1100 Decadron 6mg (Dexamethasone) 14:32:13 CDT 2 CPT-04725 Hip bilat min 2V w AP pelvis 13:16:20 CDT 2 CPT-97692 Pelvis only 13:07:33 CDT CPT-47774 Spec Collection and Handling Fee 11:25:12 C DT CPT-75717 Fluzone Quadrivalent Intramuscular Suspe nsion 0.5 ML 14:31:55 CDT CPT-18205 Abx/Therapy Injection 13:28:47 WHEEL TUNER CPT-J2930 Solu Medrol 125 mg (Methyl Prednisolone Sodium Succinate) 12:00:47 WHEEL TUNER CPT-40634 Venipuncture Draw Fee 11:33:31 CDT CPT-30528 EKG Trac and Interp 11:21:09 CDT CPT-85124 Chest 2V Frontal and Lat 11:21:09 CDT 12/15 CPT-78689 Venipuncture Draw Fee 08:02:34 CDT CPT-73160 Chest 2V Frontal and Lat 05:47:59 CDT 06/05
--- OUTSIDE RECORDS SUMMARY | 2019-10-08 08:06 | XMS REPORT | Clinical Summary ---
Author Author Caitlin, Juliana Martinez Organization [facility] Address Unknown Phone Unavailable Allergies, Adverse Reactions, Alerts Allergy Name Reaction Description Start Date Severity Status Pr ovider No Known Allergies Zo meeks Conditions or Problems Problem Name Problem Code [...] myositis, unspecified DIVERTICULOSIS, COLON 562.10 Active Carlton lorea MD Diverticulosis of colon (without mention of [...] Hu MD Candidiasis of skin and nails BRONCHITIS ICD-490 Inactive Hugo Restrepo MD 201 [...] Generic Name NDC Status Provider Patient Instruction TERBINAFINE HCL 250 MG ORAL TABLET 1 qDay for nail fungus 7 TERBINAFINE HCL 38670700615 No Longer Active Carlton Hu MD A ctive TUSSIONEX PENNKINETIC ER 10-8 MG/5ML ORAL SUSPENSION E XTENDED RELEASE 5ml po q12hr PRN Cough HYDROCOD POLST-CHLORPHEN POLST 62356121538 Active Carlton Hu MD Active PREDNISONE 20 MG ORAL TABLET 1 tab twice daily for 3 d ay, then one daily for three days PREDNISONE 47571684879 Active Carlton Hu MD Active AMOXICILLIN 500 MG ORAL CAPSULE 1 cap by mouth three times a day AMOXICILLIN 15402576630 No Longer Active Carlton Hu MD Active ELMIRON 100 MG ORAL CAPSULE 2 tablets in the am and 1 tablet at hs PENTOSAN POLYSULFATE SODIUM 57057474006 No Longer Active Robert jade Hu MD Active MUCINEX D 60-600 MG ORAL TABLET EXTENDED RELEASE 12 HOUR 1 t ab po q am PSEUDOEPHEDRINE-GUAIFENESIN 87809229695 No Longer Act nael Carlton Hu MD Active MUCINEX DM MAXIMUM STRENGTH 60-1200 MG ORAL TABLET EXT ENDED RELEASE 12 HOUR 1 tab po q am DEXTROMETHORPHAN-GUAIFENESIN 71630389960 No Longer Active Carlton Hu MD Active TUSSIONEX PENNKINETIC ER 10-8 MG/5ML ORAL SUSPENSION E XTENDED RELEASE 5ml po q12hr PRN Cough HYDROCOD POLST-CHLORPHEN POLST 5 1220207289 No Longer Active Carlton Hu MD Active POTASSIUM CHLORIDE ER 20 MEQ ORAL TABLET EXTENDED RELE ASE Take 1 by mouth 4 times daily for 7 days POTASSIUM CHLORIDE 78724233829 No Longer Active Carlton Hu MD Active ZITHROMAX 250 MG ORAL TABLET 2 po today, then 1 po q days 2-5 20 14/09/04 AZITHROMYCIN 24877809420 No Longer Active Elise Whitmore APRN Active TUSSIONEX PENNKINETIC ER 10-8 MG/5ML ORAL SUSPENSION E XTENDED RELEASE 5 ml twice a day as needed for cough HYDROCOD POLST-CHLORPH EN POLST 36495320945 No Longer Active Elise Whitmore APRN Active MONTELUKAST SODIUM 10 MG ORAL TABLET 1 po daily for Allergy MONTELUKAST SODIUM 67059486211 Active Carlton Hu MD Ac tive TUSSIONEX PENNKINETIC ER 10-8 MG/5ML ORAL SUSPENSION E XTENDED RELEASE 5ml po q12hr PRN Cough HYDROCOD POLST-CHLORPHEN POLST 5 1599751490 No Longer Active Hugo Restrepo MD Active GABAPENTIN 100 MG ORAL CAPSULE 1 po BID for fibromyalgia GABAPENTIN 93920045289 Active Elise Whitmore APRN Active LYRICA 100 MG ORAL CAPSULE Take 1 tab po BID for fibromyalgia 20 11/08/21 PREGABALIN 10828817958 No Longer Active Elise Whitmore APRN Active PROAIR HFA 108 (90 Base) MCG/ACT INHALATION AEROSOL SO LUTION 2 puffs four times a day as needed ALBUTEROL SULFATE 26425839487 Active Lyndsay Whitmore APRN Active PREDNISONE 20 MG ORAL TABLET 2 tabs daily for 3 days, 1 tab daily for 3 days, 1/2 tab daily for 2 days PREDNISONE 43798177275 No Longer Active Jillina Frazelbhakti KHAN Active TUSSIONEX PENNKINETIC ER 10-8 MG/5ML ORAL SUSPENSION E XTENDED RELEASE 5 mL PO q 12 hrs PRN cough HYDROCOD POLST-CHLORPHEN POLST 297346 97737 No Longer Active Jillina Frazell BILL Active FLUTICASONE PROPIONATE 50 MCG/ACT NASAL SUSPENSION 2 s prays each nostril daily until bottle is empty FLUTICASONE PROPIONATE 928821602 99 No Longer Active Jillina Frazell COOK PIE Active ASMANEX 60 METERED DOSES 220 MCG/INH INHALATION AEROSO L POWDER BREATH ACTIVATED 1 puff bid with rinse after MOMETASONE FUROATE 1909818 4102 No Longer Active Jillina Frazell COOK PIE Active ZITHROMAX Z-REYNA 250 MG ORAL TABLET 2 today, then 1 daily for 4 d ays AZITHROMYCIN 32618063074 No Longer Active Elise Whitmore APRN Active TUSSIONEX PENNKINETIC ER 10-8 MG/5ML ORAL SUSPENSION E XTENDED RELEASE 5ml po q12hr PRN Cough HYDROCOD POLST-CHLORPHEN POLST 5 3960348180 No Longer Active Elise Haim COOK PIE Active PREDNISONE 20 MG ORAL TABLET 2 tabs daily for 3 days, 1 tab daily for 3 days, 1/2 tab daily for 2 days PREDNISONE 77796079462 No Longer Active Diya De Guzman APRN Active AMOXICILLIN 500 MG ORAL CAPSULE 2 po BID x 10 days 201 09/29/08 AMOXICILLIN 13630521902 No Longer Active Diya De Guzman APRN Act nael SINGULAIR 10 MG ORAL TABLET 1 po qday for allergies 20 14/01/12 MONTELUKAST SODIUM 38998320606 No Longer Active Carlton Hu MD Active LEVAQUIN 500 MG ORAL TABLET 1 tablet by mouth daily 13/09/24 LEVOFLOXACIN 29012526231 No Longer Active Carlton Hu MD Acti ve FLUTICASONE PROPIONATE 50 MCG/ACT NASAL SUSPENSION 2 s prays each nostril daily for 2 weeks, then 1 spray each nostril daily. FLUTICASONE PROPIONATE 29087310256 Active Elise Whitmore APRN Active ZITHROMAX 250 MG ORAL TABLET 2 po today, then 1 po q days 2-5 20 13/08/10 AZITHROMYCIN 84164449294 No Longer Active Elise Whitmore APRN Active XANAX 0.5 MG ORAL TABLET one tablet by mouth daily prn anxiety 2015 ALPRAZOLAM 58460902397 Active Carlton Hu MD Active CYMBALTA 30 MG ORAL CAPSULE DELAYED RELEASE PARTICLES 1 cap by mouth daily for depression DULOXETINE HCL 30922287604 Active Carlton beltrán MD Active CEFDINIR 300 MG ORAL CAPSULE 1 po BID x 10 days CEFDINIR 63185519279 No Longer Active Carlton Hu MD Active ZOCOR 40 MG ORAL TABLET 1 tab by mouth daily SI MVASTATIN 95715743079 No Longer Active Carlton Hu MD Active CYCLOBENZAPRINE HCL 10 MG ORAL TABLET 1 tablet by mouth BID prn had pain CYCLOBENZAPRINE HCL 72584339598 No Longer Active Jayden Hu MD Active LEVOFLOXACIN 500 MG ORAL TABLET 1 tab PO daily x 10 days LEVOFLOXACIN 98832301165 No Longer Active Carlton Hu MD Acti ve PREDNISONE 20 MG ORAL TABLET 3 tab PO qd x 2d, 2 tab P O qd x 2d, 1 tab PO qd x 2d, 1/2 tab PO qd x 2d PREDNISONE 42894774026 No Lo nger Active Carlton Hu MD Active FLUTICASONE PROPIONATE 50 MCG/ACT NASAL SUSPENSION 1 t o 2 sprays each nostril daily FLUTICASONE PROPIONATE 89411194259 No Longer Ac tive Blaine HERNANDEZ Active CHERATUSSIN AC 100-10 MG/5ML ORAL SYRUP 1 tsp by mouth every 4 hours as needed for cough GUAIFENESIN-CODEINE 41542130580 No Longe r Active Blaine HERNANDEZ Active PROMETHAZINE-CODEINE 6.25-10 MG/5ML ORAL SYRUP 1 tsp b y mouth every 6 hours if needed for cough PROMETHAZINE-CODEINE 38635260585 No Longer Active Blaine HERNANDEZ Active CHERATUSSIN AC 100-10 MG/5ML ORAL SYRUP 1 tsp by mouth every 4 hours as needed for cough GUAIFENESIN-CODEINE 32471258798 No Longe r Active Blaine HERNANDEZ Active ZITHROMAX Z-REYNA 250 MG ORAL TABLET 2 today, then 1 daily for 4 d ays AZITHROMYCIN 86982132192 No Longer Active Columba Raida Act nael ZITHROMAX 250 MG ORAL TABLET 2 po today, then 1 po q days 2-5 20 14/03/21 AZITHROMYCIN 04826076086 No Longer Active Carlton Hu MD Active ZITHROMAX Z-REYNA 250 MG ORAL TABLET 2 today, then 1 daily for 4 d ays AZITHROMYCIN 36363230125 No Longer Active Columba Raida Act nael AUGMENTIN 875-125 MG ORAL TABLET 1 po BID x 10 days 20 13/01/20 AMOXICILLIN-POT CLAVULANATE 53521875872 No Longer Active Diya Daphnebrayan KHAN Active ZITHROMAX 250 MG ORAL TABLET 2 po today, then 1 po q days 2-5 20 12/08/14 AZITHROMYCIN 93167613437 No Longer Active Carlton Hu MD Active TRAMADOL HCL 50 MG ORAL TABLET 1 po tid with ES Tylenol TRAMADOL HCL 18175416118 Active Carlton Hu MD Active PREMARIN 0.625 MG ORAL TABLET TAKE 1 TAB BY MOUTH DAILY ESTROGENS CONJUGATED 49655101397 No Longer Active Ridge Bess DO A ctive CYMBALTA 30 MG ORAL CAPSULE DELAYED RELEASE PARTICLES 1 cap by mouth daily DULOXETINE HCL 54508750244 No Longer Active Ridge tam DO Active AMOXICILLIN 500 MG ORAL CAPSULE 1 tab by mouth 3 times daily x 10 days AMOXICILLIN 81330996460 No Longer Active Carlton bustamante MD Active AMOXICILLIN 500 MG ORAL CAPSULE 1 tab by mouth 3 times daily x 10 days AMOXICILLIN 20948401401 No Longer Active Carlton bustamante MD Active PROMETHAZINE-CODEINE 6.25-10 MG/5ML ORAL SYRUP 1 tsp b y mouth every 8 hours prn cough PROMETHAZINE-CODEINE 05737889665 No Longer Acti ve Carlton Hu MD Active MEDROL 4 MG ORAL TABLET THERAPY PACK 6 pills x 1 day, then 5 pills x 1 day then 4 pills x 1 day, then 3 pills x 1 day, then 2 pills x 1 day, then 1 pill x 1 day, then stop METHYLPREDNISOLONE 91327727998 No Long er Active Perez Mora MD Active AZITHROMYCIN 250 MG ORAL TABLET 2 po qd x 1 day, then 1 po q d x 4 days AZITHROMYCIN 75806013024 No Longer Active Perez Ambriz MD Active SYMBICORT 160-4.5 MCG/ACT INHALATION AEROSOL 2 puffs bid wit h rinse after BUDESONIDE-FORMOTEROL FUMARATE 65956115866 N o Longer Active Perez Mora MD Active LYRICA 75 MG ORAL CAPSULE TAKE 1 CAPSULE BY MOUTH TWICE DAILY PREGABALIN 96069111679 No Longer Active Carlton Hu MD Acti ve TOPAMAX 25 MG ORAL TABLET 1 qHS x 1 week, then 1 BID x 1 week, then 1 qAM and 2 qHS x 1 week, then 2 BID (migraine prevention) T OPIRAMATE 14206715014 No Longer Active Jerica FUENTES Active TOPAMAX 50 MG ORAL TABLET take 1 tab po BID for migraines. 07/02 TOPIRAMATE 24618208461 No Longer Active Jerica FUENTES Active TOPAMAX 100 MG ORAL TABLET Take 1 tablet po bid TO PIRAMATE 84436309637 Active Carlton Hu MD Active TRIAMCINOLONE ACETONIDE 0.1 % EXTERNAL CREAM apply three roger es daily prn rash TRIAMCINOLONE ACETONIDE 57267421207 No Longer Active Carlton Hu MD Active PAXIL 40 MG ORAL TABLET take 1 tab po qday for depression 0 PAROXETINE HCL 55813732194 Active Carlton Hu MD Active CHERATUSSIN AC 100-10 MG/5ML ORAL SYRUP 5ml po q6hr PRN Cough 20 13/04/14 GUAIFENESIN-CODEINE 83323672903 No Longer Active Carlton Hu MD Active MEDROL 4 MG ORAL TABLET THERAPY PACK 6 tabs on day 1, 5 tabs on day 2, 4 tabs on day 3, 3 tabs on day 4, 2 tabs on day 5, 1 tab on day 6 2013 METHYLPREDNISOLONE 71860827479 No Longer Active Perez Mora MD Active AZITHROMYCIN 250 MG ORAL TABLET 2 po qd x 1 day, then 1 po q d x 4 days AZITHROMYCIN 53515853033 No Longer Active Perez Ambriz MD Active PROPRANOLOL HCL 60 MG ORAL TABLET 1 PO Q D PROPRANOLOL HCL 36123036452 No Longer Active Perez Mora MD Activ e CHERATUSSIN AC 100-10 MG/5ML ORAL SYRUP take one tsp po Q 6h ours prn cough GUAIFENESIN-CODEINE 08209828963 No Longer Active Zia Mora MD Active AUGMENTIN 875-125 MG ORAL TABLET 1 tab by mouth twice daily with food AMOXICILLIN-POT CLAVULANATE 06931859426 No Longer Act nael Mora MD Active CHERATUSSIN AC 100-10 MG/5ML ORAL SYRUP 1 tsp by mouth every 4 hours as needed for cough GUAIFENESIN-CODEINE 09393028294 No Longe r Active Hugo Restrepo MD Active ACETAMINOPHEN-CODEINE #3 300-30 MG ORAL TABLET 1 PO Q 4-6 HRS [facility] N PAIN ACETAMINOPHEN-CODEINE 19926876319 No Longer Active Hugo Restrepo MD Active LEVAQUIN 500 MG ORAL TABLET take one po QD LEVO FLOXACIN 44193460997 No Longer Active Griffin HERNANDEZ Active PREDNISONE 20 MG ORAL TABLET Take 3 tabs daily for 3 d ays, 2 tabs daily for 3 days, 1 tab daily for 3 days, 1/2 tab daily for 3 days 11/07 PREDNISONE 18918265526 No Longer Active Carlton Hu MD Acti ve AVELOX 400 MG ORAL TABLET 1 tab by mouth daily MOXIFLOXACIN HCL 56551820207 No Longer Active Carlton Hu MD Active CHERATUSSIN AC 100-10 MG/5ML ORAL SYRUP 1 tsp by mouth every 4 hours as needed for cough GUAIFENESIN-CODEINE 02488177970 No Longe r Active Hugo Restrepo MD Active AVELOX 400 MG ORAL TABLET 1 tab by mouth daily MOXIFLOXACIN HCL 90592678328 No Longer Active Marcy De La Rosa MD PhD Active TERBINAFINE HCL 250 MG ORAL TABLET 1 qDay T ERBINAFINE HCL 30475392841 No Longer Active Marcy De La Rosa MD PhD Active CHERATUSSIN AC 100-10 MG/5ML ORAL SYRUP 1 tsp by mouth every 4 hours as needed for cough GUAIFENESIN-CODEINE 00086100067 No Longe r Active Marcy De La Rosa MD PhD Active AVELOX 400 MG ORAL TABLET 1 tab by mouth daily MOXIFLOXACIN HCL 62544349915 No Longer Active Marcy De La Rosa MD PhD Active HYDROCODONE-ACETAMINOPHEN 5-325 MG ORAL TABLET 1 po q 6hr PRN co ugh HYDROCODONE-ACETAMINOPHEN 74443014158 No Longer Active Marcy De La Rosa MD PhD Active PREDNISONE 20 MG ORAL TABLET 2 tabs daily for 3 days, 1 tab daily for 3 days, 1/2 tab daily for 2 days PREDNISONE 79737798823 No Longer Active Carlton Hu MD Active CEFDINIR 300 MG ORAL CAPSULE by mouth twice a day 2011 CEFDINIR 57669835774 No Longer Active Carlton Hu MD Acti ve HYDROCHLOROTHIAZIDE 25 MG ORAL TABLET 1 TAB PO DAILY HYDROCHLOROTHIAZIDE 35065517131 Active Carlton Hu MD A ctive ACETAMINOPHEN-CODEINE #3 300-30 MG ORAL TABLET 1 tablet po q 4-6 hrs prn pain ACETAMINOPHEN-CODEINE 53605306436 No Longer Active Ridge Bess DO Active ZITHROMAX 250 MG ORAL TABLET 2 po today, then 1 po q days 2-5 20 03/07/07 AZITHROMYCIN 29465396091 No Longer Active Carlton Hu MD Active CHERATUSSIN AC 100-10 MG/5ML ORAL SYRUP take 1 tsp po q4-6 h ours prn cough GUAIFENESIN-CODEINE 90385877487 No Longer Active Jayden Hu MD Active ACETAMINOPHEN-CODEINE #3 300-30 MG ORAL TABLET 1 PO Q 4-6 HR PRN PAIN ACETAMINOPHEN-CODEINE 42241914115 No Longer Active Arnol Hu MD Active LORTAB 7.5-500 MG/15ML ORAL ELIXIR 7.5 ml po q 4 hour prn cough HYDROCODONE-ACETAMINOPHEN 53225458988 No Longer Active Carlton Hu MD Active PREDNISONE 20 MG ORAL TABLET 1 po bid 3 days, then 1 po q day 3 days PREDNISONE 57461451319 No Longer Active Carlton Hu MD Active CEFDINIR 300 MG ORAL CAPSULE by mouth twice a day 2011 CEFDINIR 48603419468 No Longer Active Carlton Hu MD Acti ve CEFDINIR 300 MG ORAL CAPSULE by mouth twice a day 2010 CEFDINIR 13990219813 No Longer Active Carlton Hu MD Acti ve CEFDINIR 300 MG ORAL CAPSULE by mouth twice a day 2010 CEFDINIR 73788697303 No Longer Active Carlton Hu MD Acti ve TESSALON PERLES 100 MG ORAL CAPSULE 1 tablet by mouth 3 times daily as needed for cough BENZONATATE 39062449775 No Longer Active Carlton Hu MD Active CEFDINIR 300 MG ORAL CAPSULE by mouth twice a day 2010 CEFDINIR 62701944629 No Longer Active Carlton Hu MD Acti ve ZITHROMAX Z-REYNA 250 MG ORAL TABLET 2 today, then 1 daily for 4 d ays AZITHROMYCIN 82702433904 No Longer Active Hugo Restrepo MD Active TESSALON PERLES 100 MG ORAL CAPSULE 1 tablet by mouth 3 times daily as needed for cough TESSALON PERLES 100 MG ORAL CAPSULE 09683 7 BENZONATATE Inactive PREDNISONE 20 MG ORAL TABLET 1 po bid 3 days, then 1 po q day 3 days PREDNISONE 20 MG ORAL TABLET 772374 PREDNISONE [place] ctive LORTAB 7.5-500 MG/15ML ORAL ELIXIR 7.5 ml po q 4 hour prn cough LORTAB 7.5-500 MG/15ML ORAL ELIXIR 0191828 HYDROCODONE-A CETAMINOPHEN Inactive ACETAMINOPHEN-CODEINE #3 300-30 MG ORAL TABLET 1 PO Q 4-6 HR PRN PAIN ACETAMINOPHEN-CODEINE #3 300-30 MG ORAL TABLET ACETAMINOPHEN-CODEINE Inactive CHERATUSSIN AC 100-10 MG/5ML ORAL SYRUP take 1 tsp po q4-6 h ours prn cough CHERATUSSIN AC 100-10 MG/5ML ORAL SYRUP 440083 GUAIFENESIN-CODEINE Inactive ACETAMINOPHEN-CODEINE #3 300-30 MG ORAL TABLET 1 tablet po q 4-6 hrs prn pain ACETAMINOPHEN-CODEINE #3 300-30 MG ORAL TABLET ACETAMINOPHEN-CODEINE Inactive HYDROCODONE-ACETAMINOPHEN 5-325 MG ORAL TABLET 1 po q 6hr PRN co ugh HYDROCODONE-ACETAMINOPHEN 5-325 MG ORAL TABLET 373025 HYDROCODONE-ACETAMINOPHEN Inactive AVELOX 400 MG ORAL TABLET 1 tab by mouth daily AVELOX 400 MG ORAL TABLET 847406 MOXIFLOXACIN HCL Inactive CHERATUSSIN AC 100-10 MG/5ML ORAL SYRUP 1 tsp by mouth every 4 hours as needed for cough CHERATUSSIN AC 100-10 MG/5ML ORAL SYRUP 9 23513 GUAIFENESIN-CODEINE Inactive TERBINAFINE HCL 250 MG ORAL TABLET 1 qDay 07/08 TERBINAFINE HCL 250 MG ORAL TABLET 501126 TERBINAFINE HCL Inactive CHERATUSSIN AC 100-10 MG/5ML ORAL SYRUP 1 tsp by mouth every 4 hours as needed for cough CHERATUSSIN AC 100-10 MG/5ML ORAL SYRUP 9 86678 GUAIFENESIN-CODEINE Inactive ACETAMINOPHEN-CODEINE #3 300-30 MG ORAL TABLET 1 PO Q 4-6 HRS [facility] N PAIN ACETAMINOPHEN-CODEINE #3 300-30 MG ORAL TABLET ACETAMINOPHEN-CODEINE Inactive CHERATUSSIN AC 100-10 MG/5ML ORAL SYRUP 1 tsp by mouth every 4 hours as needed for cough CHERATUSSIN AC 100-10 MG/5ML ORAL SYRUP 9 81139 GUAIFENESIN-CODEINE Inactive AUGMENTIN 875-125 MG ORAL TABLET 1 tab by mouth twice daily with food AUGMENTIN 875-125 MG ORAL TABLET 511961 AMOXICIL MADELINE-POT CLAVULANATE Inactive CHERATUSSIN AC 100-10 MG/5ML ORAL SYRUP take one tsp po Q 6h ours prn cough CHERATUSSIN AC 100-10 MG/5ML ORAL SYRUP 707021 GUAIFENESIN-CODEINE Inactive PROPRANOLOL HCL 60 MG ORAL TABLET 1 PO Q D PROPRANOLOL HCL 60 MG ORAL TABLET 471127 PROPRANOLOL HCL Inactive TOPAMAX 50 MG ORAL TABLET take 1 tab po BID for migraines. 07/02 TOPAMAX 50 MG ORAL TABLET 849618 TOPIRAMATE Inacti ve TOPAMAX 25 MG ORAL TABLET 1 qHS x 1 week, then 1 BID x 1 week, then 1 qAM and 2 qHS x 1 week, then 2 BID (migraine prevention) TOPAMAX 25 MG ORAL TABLET 148901 TOPIRAMATE Inactive LYRICA 75 MG ORAL CAPSULE TAKE 1 CAPSULE BY MOUTH TWICE DAILY LYRICA 75 MG ORAL CAPSULE PREGABALIN Inactive SYMBICORT 160-4.5 MCG/ACT INHALATION AEROSOL 2 puffs bid wit h rinse after SYMBICORT 160-4.5 MCG/ACT INHALATION AEROSOL BUDESONIDE- FORMOTEROL FUMARATE Inactive PROMETHAZINE-CODEINE 6.25-10 MG/5ML ORAL SYRUP 1 tsp b y mouth every 8 hours prn cough PROMETHAZINE-CODEINE 6.25-10 MG/ 5ML ORAL SYRUP 152037 PROMETHAZINE-CODEINE Inactive CYMBALTA 30 MG ORAL CAPSULE DELAYED RELEASE PARTICLES 1 cap by mouth daily CYMBALTA 30 MG ORAL CAPSULE DELAYED RELE ASE PARTICLES 734796 DULOXETINE HCL Inactive PREMARIN 0.625 MG ORAL TABLET TAKE 1 TAB BY MOUTH DAILY PREMARIN 0.625 MG ORAL TABLET ESTROGENS CONJUGATED Inactive CHERATUSSIN AC 100-10 MG/5ML ORAL SYRUP 1 tsp by mouth every 4 hours as needed for cough CHERATUSSIN AC 100-10 MG/5ML ORAL SYRUP 9 81926 GUAIFENESIN-CODEINE Inactive PROMETHAZINE-CODEINE 6.25-10 MG/5ML ORAL SYRUP 1 tsp b y mouth every 6 hours if needed for cough PROMETHAZINE-CODEINE 6.25-10 MG/5ML ORAL SYRUP 320057 PROMETHAZINE-CODEINE Inactive CHERATUSSIN AC 100-10 MG/5ML ORAL SYRUP 1 tsp by mouth every 4 hours as needed for cough CHERATUSSIN AC 100-10 MG/5ML ORAL SYRUP 9 82016 GUAIFENESIN-CODEINE Inactive FLUTICASONE PROPIONATE 50 MCG/ACT NASAL SUSPENSION 1 t o 2 sprays each nostril daily FLUTICASONE PROPIONATE 50 MCG/AC T NASAL SUSPENSION 6119380 FLUTICASONE PROPIONATE Inactive PREDNISONE 20 MG ORAL TABLET 3 tab PO qd x 2d, 2 tab P O qd x 2d, 1 tab PO qd x 2d, 1/2 tab PO qd x 2d PREDNISONE 20 MG ORAL TAB LET 450108 PREDNISONE Inactive LEVOFLOXACIN 500 MG ORAL TABLET 1 tab PO daily x 10 days LEVOFLOXACIN 500 MG ORAL TABLET 126369 LEVOFLOXACIN Inactive CYCLOBENZAPRINE HCL 10 MG ORAL TABLET 1 tablet by mouth BID prn had pain CYCLOBENZAPRINE HCL 10 MG ORAL TABLET 529032 CYCLOBENZAPRINE HCL Inactive ZOCOR 40 MG ORAL TABLET 1 tab by mouth daily 4 ZOCOR 40 MG ORAL TABLET 506606 SIMVASTATIN Inactive TUSSIONEX PENNKINETIC ER 10-8 MG/5ML [...] FLUTICASONE PROPIO EFE 50 MCG/ACT NASAL SUSPENSION 6516495 FLUTICASONE PROPIONATE Inactive TUSSIONEX PENNKINETIC ER 10-8 MG/5ML ORAL SUSPENSION E XTENDED RELEASE 5 mL PO q 12 hrs PRN cough TUSSIONEX PENNKINETI C ER 10-8 MG/5ML ORAL SUSPENSION EXTENDED RELEASE HYDROCOD POLST-CHLORPHEN POLST I nactive LYRICA 100 MG ORAL CAPSULE Take 1 tab po BID for fibromyalgia 11/08/21 LYRICA 100 MG ORAL CAPSULE PREGABALIN [...] MG ORAL CAPSULE PENTOSAN POLYSULFATE SODIUM Inactive ZITHROMAX Z-REYNA 250 MG ORAL TABLET 2 today, then 1 daily for 4 d ays ZITHROMAX Z-REYNA 250 MG ORAL TABLET 866336 AZITHROMYCIN Inactive CEFDINIR 300 MG ORAL CAPSULE by mouth twice a day 2010 CEFDINIR 300 MG ORAL CAPSULE 735852 CEFDINIR Inactive CEFDINIR 300 MG ORAL CAPSULE by mouth twice a day 2010 CEFDINIR 300 MG ORAL CAPSULE 403948 CEFDINIR Inactive CEFDINIR 300 MG ORAL CAPSULE by mouth twice a day 2010 CEFDINIR 300 MG ORAL CAPSULE 400857 CEFDINIR Inactive CEFDINIR 300 MG ORAL CAPSULE by mouth twice a day 2011 CEFDINIR 300 MG ORAL CAPSULE 922876 CEFDINIR Inactive ZITHROMAX 250 MG ORAL TABLET 2 po today, then 1 po q days 2-5 20 03/07/07 ZITHROMAX 250 MG ORAL TABLET 975938 AZITHROMYCIN [place] ctive CEFDINIR 300 MG ORAL CAPSULE by mouth twice a day 2011 CEFDINIR 300 MG ORAL CAPSULE 857023 CEFDINIR Inactive PREDNISONE 20 MG ORAL TABLET 2 tabs daily for 3 days, 1 tab daily for 3 days, 1/2 tab daily for 2 days PREDNISONE 20 MG ORAL T ABLET 753617 PREDNISONE Inactive AVELOX 400 MG ORAL TABLET 1 tab by mouth daily AVELOX 400 MG ORAL TABLET 925429 MOXIFLOXACIN HCL Inactive AVELOX 400 MG ORAL TABLET 1 tab by mouth daily AVELOX 400 MG ORAL TABLET 830467 MOXIFLOXACIN HCL Inactive PREDNISONE 20 MG ORAL TABLET Take 3 tabs daily for 3 d ays, 2 tabs daily for 3 days, 1 tab daily for 3 days, 1/2 tab daily for 3 days 11/07 PREDNISONE 20 MG ORAL TABLET 715109 PREDNISONE Inactive LEVAQUIN 500 MG ORAL TABLET take one po QD LEVAQUIN 500 MG ORAL TABLET 828569 LEVOFLOXACIN Inactive AZITHROMYCIN 250 MG ORAL TABLET 2 po qd x 1 day, then 1 po q d x 4 days AZITHROMYCIN 250 MG ORAL TABLET 607734 AZITHROMY GIOVANNI Inactive MEDROL 4 MG ORAL TABLET THERAPY PACK 6 tabs on day 1, 5 tabs on day 2, 4 tabs on day 3, 3 tabs on day 4, 2 tabs on day 5, 1 tab on day 6 2013 MEDROL 4 MG ORAL TABLET THERAPY PACK 665767 METHYLPREDNISOLONE [place] ctive CHERATUSSIN AC 100-10 MG/5ML ORAL SYRUP 5ml po q6hr PRN Cough 20 13/04/14 CHERATUSSIN AC 100-10 MG/5ML ORAL SYRUP 981544 GUAIFENE SIN-CODEINE Inactive TRIAMCINOLONE ACETONIDE 0.1 % EXTERNAL CREAM apply three roger es daily prn rash TRIAMCINOLONE ACETONIDE 0.1 % EXTERNAL CREAM 101 4314 TRIAMCINOLONE ACETONIDE Inactive AZITHROMYCIN 250 MG ORAL TABLET 2 po qd x 1 day, then 1 po q d x 4 days AZITHROMYCIN 250 MG ORAL TABLET 663993 AZITHROMY GIOVANNI Inactive MEDROL 4 MG ORAL TABLET THERAPY PACK 6 pills x 1 day, then 5 pills x 1 day then 4 pills x 1 day, then 3 pills x 1 day, then 2 pills x 1 day, then 1 pill x 1 day, then stop MEDROL 4 MG ORAL TABLET THERAPY PACK 240849 METHYLPREDNISOLONE Inactive AMOXICILLIN 500 MG ORAL CAPSULE 1 tab by mouth 3 times daily x 10 days AMOXICILLIN 500 MG ORAL CAPSULE 690537 AMOXICILL IN Inactive AMOXICILLIN 500 MG ORAL CAPSULE 1 tab by mouth 3 times daily x 10 days AMOXICILLIN 500 MG ORAL CAPSULE 321176 AMOXICILL IN Inactive ZITHROMAX 250 MG ORAL TABLET 2 po today, then 1 po q days 2-5 20 12/08/14 ZITHROMAX 250 MG ORAL TABLET 576907 AZITHROMYCIN [place] ctive AUGMENTIN 875-125 MG ORAL TABLET 1 po BID x 10 days 20 13/01/20 AUGMENTIN 875-125 MG ORAL TABLET 946793 AMOXICILLIN-POT CLAVULANATE Inactive ZITHROMAX Z-REYNA 250 MG ORAL TABLET 2 today, then 1 daily for 4 d ays ZITHROMAX Z-REYNA 250 MG ORAL TABLET 622088 AZITHROMYCIN Inactive ZITHROMAX 250 MG ORAL TABLET 2 po today, then 1 po q days 2-5 20 14/03/21 ZITHROMAX 250 MG ORAL TABLET 280565 AZITHROMYCIN [place] ctive ZITHROMAX Z-REYNA 250 MG ORAL TABLET 2 today, then 1 daily for 4 d ays ZITHROMAX Z-REYNA 250 MG ORAL TABLET 531287 AZITHROMYCIN Inactive CEFDINIR 300 MG ORAL CAPSULE 1 po BID x 10 days 06/21 CEFDINIR 300 MG ORAL CAPSULE 503622 CEFDINIR Inactive ZITHROMAX 250 MG ORAL TABLET 2 po today, then 1 po q days 2-5 20 13/08/10 ZITHROMAX 250 MG ORAL TABLET 577358 AZITHROMYCIN [place] ctive LEVAQUIN 500 MG ORAL TABLET 1 tablet by mouth daily 13/09/24 LEVAQUIN 500 MG ORAL TABLET [id number] LEVOFLOXACIN Inactive SINGULAIR 10 MG ORAL TABLET 1 po qday for allergies 20 14/01/12 SINGULAIR 10 MG ORAL TABLET [id number] MONTELUKAST SODIUM Inactive AMOXICILLIN 500 MG ORAL CAPSULE 2 po BID x 10 days 201 09/29/08 AMOXICILLIN 500 MG ORAL CAPSULE 769602 AMOXICILLIN Inactive PREDNISONE 20 MG ORAL TABLET 2 tabs daily for 3 days, 1 tab daily for 3 days, 1/2 tab daily for 2 days PREDNISONE 20 MG ORAL T ABLET [id number] PREDNISONE Inactive ZITHROMAX Z-REYNA 250 MG ORAL TABLET 2 today, then 1 daily for 4 d ays ZITHROMAX Z-REYNA 250 MG ORAL TABLET [id number] AZITHROMYCIN Inactive PREDNISONE 20 MG ORAL TABLET 2 tabs daily for 3 days, 1 tab daily for 3 days, 1/2 tab daily for 2 days PREDNISONE 20 MG ORAL T ABLET [id number] PREDNISONE Inactive ZITHROMAX 250 MG ORAL TABLET 2 po today, then 1 po q days 2-5 14/09/04 ZITHROMAX 250 MG ORAL TABLET 202829 AZITHROMYCIN [place] [facility] AMOXICILLIN 500 MG ORAL CAPSULE 1 cap by mouth three times a day AMOXICILLIN 500 MG ORAL CAPSULE 287666 AMOXICILLIN Inactive TERBINAFINE HCL 250 MG ORAL TABLET 1 qDay for nail fungus 7 TERBINAFINE HCL 250 MG ORAL TABLET 603209 TERBINAFINE HCL Inact nael Vital Signs Date Name Value Unit Range Description blood pressure, diastolic 64 mm[Hg] BP srinivasan blood pressure, systolic 102 mm[Hg] BP sys pulse rate E&M 95 /min Heart rate temperature E&M 97.5 [degF] Body temp erature weight E&M 137 [lb_av] Weight Measure d blood pressure, diastolic 82 mm[Hg] BP srinivasan blood pressure, systolic 131 mm[Hg] BP sys height E&M 53 [in_us] Bdy height pulse rate E&M 106 /min Heart rate temperature E&M 98.7 [degF] Body temp erature weight E&M 140.5 [lb_av] Weight Measure d blood pressure, diastolic 81 mm[Hg] BP srinivasan blood pressure, systolic 109 mm[Hg] BP sys pulse rate E&M 116 /min Heart rate temperature E&M 97.6 [degF] Body temp erature weight E&M 143.5 [lb_av] Weight Measure d blood pressure, diastolic 77 mm[Hg] BP srinivasan blood pressure, systolic 124 mm[Hg] BP sys height E&M 53 [in_us] Bdy height pulse rate E&M 97 /min Heart rate temperature E&M 98.7 [degF] Body temp erature weight E&M 152.5 [lb_av] Weight Measure d blood pressure, diastolic 78 mm[Hg] BP srinivasan blood pressure, systolic 116 mm[Hg] BP sys pulse rate E&M 108 /min Heart rate temperature E&M 98.1 [degF] Body temp erature weight E&M 150 [lb_av] Weight Measure d blood pressure, diastolic 69 mm[Hg] BP srinivasan blood pressure, systolic 108 mm[Hg] BP sys pulse rate E&M 103 /min Heart rate temperature E&M 97.9 [degF] Body temp erature weight E&M 148 [lb_av] Weight Measure d Diagnostic Results Date Name Value Unit Range Description Lab Report: Basic Metabolic Panel - Chem istry calcium, serum 9.3 mg/dL 8.5-10.1 urea nitrogen, blood 12 mg/dL 7-18 creatinine, serum 1.00 mg/dL 0.60-1.30 sodium, serum 142 mmol/L 375-850 9315/07/17 potassium, serum 4.2 mmol/L 3.5-5.2 chloride, serum 106 mmol/L 98-107 carbon dioxide, venous blood 29.9 mmol/L 21.0-32 .0 blood glucose 108 mg/dL 65-110 calcium, serum 9.1 mg/dL 8.5-10.1 urea nitrogen, blood 11 mg/dL 7-18 creatinine, serum 0.81 mg/dL 0.60-1.30 blood glucose 107 mg/dL 65-110 carbon dioxide, venous blood 30.8 mmol/L 21.0-32 .0 chloride, serum 93 mmol/L 98-107 potassium, serum 2.7 mmol/L 3.5-5.2 sodium, serum 132 mmol/L 136-145 Lab Report: Rapid Strep - Lab Microbial identification kit, rapid strep method Negative Negative Encounters Code Encounter Date Provider Facility CPT-60924 Level 3 Est. 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 Patient 10:03:52 HOBBING MACHINE OPERATOR Carlton rich MD [facility] CPT-49622 Level 3 Est. Patient 12:17:50 CDT Hugo Restrepo MD [facility] CPT-53726 Level 3 Est. Patient 13:42:38 CDT Italo [facility] CPT-94798 Level 3 Est. Patient 13:23:51 CDT Diya [facility]-47177 Level 3 Est. Patient 14:22:19 HOBBING MACHINE OPERATOR Diya cobian [facility] CPT-73503 Level 3 Est. Patient 10:11:46 CDT Carlton rich MD [facility] CPT-59756 Level 3 Est. Patient 17:29:43 CDT Italo COOK PIE [facility] CPT-82853 Level 3 Est. Patient 11:58:06 CDT Italo [facility] CPT-49831 Level 4 Est. Patient 14:36:51 CDT Carlton rich MD [facility] CPT-59437 Level 3 Est. Patient 18:16:00 HOBBING MACHINE OPERATOR Blaine HERNANDEZ [facility] CPT-26831 Level 3 Est. Patient 09:45:49 HOBBING MACHINE OPERATOR Carlton rich MD [facility] CPT-26158 Level 3 Est. Patient 13:19:20 CDT Carlton rich MD [facility]-29263 Level 3 Est. Patient 13:06:43 CDT Ridge tam DO [facility] CPT-31605 Level 3 Est. Patient 10:03:07 CDT Perez Mora MD [facility] CPT-14053 Level 3 Est. Patient 19:50:35 HOBBING MACHINE OPERATOR Carlton rich MD [facility]-18463 Level 4 Est. Patient 18:05:01 HOBBING MACHINE OPERATOR Carlton rich MD [facility]-99917 Level 3 Est. Patient 10:45:55 HOBBING MACHINE OPERATOR Hugo Restrepo MD [facility]-02867 Level 3 Est. Patient 14:12:49 CDT Griffin HERNANDEZ [facility] CPT-20193 Level 3 Est. Patient 17:37:24 CDT Carlton rich MD [facility]-90368 Level 3 Est. Patient 16:51:54 CDT Carlton rich MD [facility] CPT-52595 Level 3 Est. Patient 12:18:11 CDT Hugo Restrepo MD [facility] CPT-76691 Level 3 Est. Patient 11:30:25 CDT Marcy crisostomo MD PhD [facility]-58774 Level 3 Est. Patient 12:00:47 HOBBING MACHINE OPERATOR Carlton rich MD [facility]-83201 Level 3 Est. Patient 16:31:06 HOBBING MACHINE OPERATOR Carlton rich MD [facility]-55087 Level 3 Est. Patient 16:23:24 HOBBING MACHINE OPERATOR Ridge tam [facility] CPT-02800 Level 3 Est. Patient 12:34:12 CDT Carlton rich MD [facility] CPT-29326 Level 2 Est. Patient 15:43:33 CDT Robi armstrong MD [facility] CPT-76230 Level 4 Est. Patient 14:04:44 CDT Carlton rich MD [facility] CPT-96248 Level 3 Est. Patient 05:47:[address] [facility] CPT-62498 Level 3 Est. Patient 13:12:53 HOBBING MACHINE OPERATOR Carlton rich MD [facility] CPT-90678 Level 3 Est. Patient 14:26:53 CDT Hugo Restrepo MD [facility] Procedures Code Procedure Name Date Entry Date Standard Desc ription CPT-J1040 Depo Medrol 80 mg (Methyl Prednisolone A cetate) 10:42:44 CDT CPT-J1100 Decadron 8mg (Dexamethasone) 10:42:44 CDT 2 CPT-J0696 Rocephin 1gm Inj Solr 14:32:13 CDT CPT-J1020 Depo Medrol 60 mg (Methyl Prednisolone A cetate) 14:32:13 CDT CPT-J1100 Decadron 6mg (Dexamethasone) 14:32:13 CDT 2 CPT-53732 Hip bilat min 2V w AP pelvis 13:16:20 CDT 2 CPT-45733 Pelvis only 13:07:33 CDT CPT-50330 Spec Collection and Handling Fee 11:25:12 C DT CPT-42502 Fluzone Quadrivalent Intramuscular Suspe nsion 0.5 ML 14:31:55 CDT CPT-27218 Abx/Therapy Injection 13:28:47 HOBBING MACHINE OPERATOR CPT-J2930 Solu Medrol 125 mg (Methyl Prednisolone Sodium Succinate) 12:00:47 HOBBING MACHINE OPERATOR CPT-92886 Venipuncture Draw Fee 11:33:31 CDT CPT-37264 EKG Trac and Interp 11:21:09 CDT CPT-37559 Chest 2V Frontal and Lat 11:21:09 CDT 12/15 CPT-56989 Venipuncture Draw Fee 08:02:34 CDT CPT-23097 Chest 2V Frontal and Lat 05:47:59 CDT 06/05
--- OUTSIDE RECORDS SUMMARY | 2019-10-08 08:06 | XMS REPORT | Clinical Summary ---
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 Unspecified sinusitis (chronic) Bronchitis-Acute 466.0 Active Carlton Hu MD Acute bronchitis URI - acute 465.9 Active Elise Whitmore SHELL SIEVE OPERATOR Acute upper respiratory infections of unspecified site Pharyngitis acute 462 Active Elise Whitmore A PRN Acute pharyngitis Rhinitis, acute 460 Active Elise Whitmore APR N Acute nasopharyngitis [common cold] Sinusitis 473.9 Active 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 Unspecified sinusitis (chronic) BRONCHITIS ICD-490 Inactive Hugo Restrepo MD 201 [...] Instructions Start Date Stop Date Generic Name ND Status Provider Patient Instruction ASMANEX 60 METERED DOSES 220 MCG/INH AEPB 1 puff bid with ri nse after MOMETASONE FUROATE 58533071458 Active Elise Whitmore APRN Active FLUTICASONE PROPIONATE 50 MCG/ACT SUSP 2 sprays each n ostril daily until bottle is empty FLUTICASONE PROPIONATE 74238291823 Active Lyndsay Whitmore APRN Active ZITHROMAX Z-REYNA 250 MG TABS 2 today, then 1 daily for 4 days 201 09/29/14 AZITHROMYCIN 07216798543 No Longer Active Elise Whitmore APRN Active TUSSIONEX PENNKINETIC ER 10-8 MG/5ML LQCR 5ml po q12hr PRN Cough HYDROCOD POLST-CHLORPHEN POLST 20326976209 No Longer Active Elise Whitmore APRN Active MUCINEX D 60-600 MG [id number] 1 tab po q am PSEUDOEPHEDRINE-GUAIFENESIN 01895231679 Active Jillina Frazell SHELL SIEVE 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 PREDNISONE 20 MG TAB 2 tabs daily for 3 days, 1 t ab daily for 3 days, 1/2 tab daily for 2 days PREDNISONE 25760046728 No Longer Active Jillina Frazell SHELL SIEVE 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 AMOXICILLIN 500 MG CAPS 2 po BID x 10 days AMOX ICILLIN 80567197367 No Longer Active Jillina Frazell SHELL SIEVE 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 SINGULAIR 10 MG TABS 1 po qday for allergies 2 MONTELUKAST SODIUM 48192525195 No Longer Active Carlton Hu MD Acti ve LEVAQUIN 500 MG TAB 1 tablet by mouth daily LEV OFLOXACIN 28905214012 No Longer Active Carlton Hu MD Active FLUTICASONE PROPIONATE 50 MCG/ACT SUSP 2 sprays each n ostril daily for 2 weeks, then 1 spray each nostril daily. FLUTICASONE PRO PIONATE 47891718040 Active Elise Whitmore APRN Active ZITHROMAX 250 MG TAB 2 po today, then 1 po q days 2-5 AZITHROMYCIN 83836535270 No Longer Active Elise Whitmore APRN Acti ve XANAX 0.5 MG TABS one tablet by mouth daily prn anxiety ALPRAZOLAM 89477369765 Active Elise Whitmore APRN Active CYMBALTA 30 MG CPEP 1 cap by mouth daily for depression DULOXETINE HCL 66269835740 Active Carlton Hu MD Active CEFDINIR 300 MG CAPS 1 po BID x 10 days CEFDINI R 09452560958 No Longer Active Carlton Hu MD Active ZOCOR 40 MG TAB 1 tab by mouth daily SIMVASTATI N 45984912141 No Longer Active Carlton Hu MD Active CYCLOBENZAPRINE HCL 10 MG TABS 1 tablet by mouth BID prn had cherelle n CYCLOBENZAPRINE HCL 14698333518 No Longer Active Carlton Hu MD Active LEVOFLOXACIN 500 MG ORAL TABS 1 tab PO daily x 10 days LEVOFLOXACIN 23995405270 No Longer Active Carlton Hu MD Acti ve PREDNISONE 20 MG ORAL TABS 3 tab PO qd x 2d, 2 tab PO qd x 2d, 1 tab PO qd x 2d, 1/2 tab PO qd x 2d PREDNISONE 60879192454 No Longer Active Carlton Hu MD Active TUSSIONEX PENNKINETIC ER 10-8 MG/5ML ORAL LQCR 5 mL PO q 12 hrs PRN cough HYDROCOD POLST-CHLORPHEN POLST 40525142740 Active Elise Whitmore APRN Active FLUTICASONE PROPIONATE 50 MCG/ACT SUSP 1 to 2 sprays each no stril daily FLUTICASONE PROPIONATE 31653592416 No Longer Active T homas W Cloven PA Active CHERATUSSIN AC 100-10 MG/5ML SYRP 1 tsp by mouth every 4 hours as needed for cough GUAIFENESIN-CODEINE 88567831915 No Longer Activ e Blaine HERNANDEZ Active PROMETHAZINE-CODEINE 6.25-10 MG/5ML SYRP 1 tsp by mout h every 6 hours if needed for cough PROMETHAZINE-CODEINE 04554684932 No Long er Active Blaine HERNANDEZ Active CHERATUSSIN AC 100-10 MG/5ML SYRP 1 tsp by mouth every 4 hours as needed for cough GUAIFENESIN-CODEINE 72419419905 No Longer Activ e Blaine HERNANDEZ Active ZITHROMAX Z-REYNA 250 MG TABS 2 today, then 1 daily for 4 days 201 08/30/03 AZITHROMYCIN 58578615039 No Longer Active Columba Raida Act nael ZITHROMAX 250 MG TAB 2 po today, then 1 po q days 2-5 AZITHROMYCIN 13630597268 No Longer Active Carlton Hu MD Acti ve ZITHROMAX Z-REYNA 250 MG TABS 2 today, then 1 daily for 4 days 201 08/07/20 AZITHROMYCIN 24133849166 No Longer Active Columba Raida Act nael AUGMENTIN 875-125 MG TAB 1 po BID x 10 days AMOXICILLIN- POT CLAVULANATE 19736478326 No Longer Active Diya De Guzman APRN Active ZITHROMAX 250 MG TAB 2 po today, then 1 po q days 2-5 AZITHROMYCIN 10905745639 No Longer Active Carlton Hu MD Acti ve TRAMADOL HCL 50 MG TABS 1 po tid with ES Tylenol TRAMADOL HCL 27226873976 Active Carlton Hu MD Active PREMARIN 0.625 MG TABS TAKE 1 TAB BY MOUTH DAILY 07/25 ESTROGENS CONJUGATED 47399403804 No Longer Active Ridge Bess DO Active CYMBALTA 30 MG CPEP 1 cap by mouth daily DULOXE SNEHA HCL 37181047371 No Longer Active Ridge Bess DO Active AMOXICILLIN 500 MG CAP 1 tab by mouth 3 times daily x 10 days 20 14/04/28 AMOXICILLIN 80488631277 No Longer Active Carlton Hu MD Active AMOXICILLIN 500 MG CAP 1 tab by mouth 3 times daily x 10 days 20 13/03/08 AMOXICILLIN 02365029027 No Longer Active Carlton Hu MD Active PROMETHAZINE-CODEINE 6.25-10 MG/5ML SYRP 1 tsp by mouth ever y 8 hours prn cough PROMETHAZINE-CODEINE 15202328357 No Longer Active Robert Hu MD Active MEDROL (REYNA) 4 MG TABS 6 pills x 1 day, then 5 pill s x 1 day then 4 pills x 1 day, then 3 pills x 1 day, then 2 pills x 1 day, then 1 pill x 1 day, then stop METHYLPREDNISOLONE 76498938678 No Longer Active Parris Mora MD Active AZITHROMYCIN 250 MG TABS 2 po qd x 1 day, then 1 po qd x 4 days AZITHROMYCIN 98645882021 No Longer Active Perez Mora MD Active SYMBICORT 160-4.5 MCG/ACT AERO 2 puffs bid with rinse after 2011 BUDESONIDE-FORMOTEROL FUMARATE 22678567087 No Longer Active Perez Mora MD Active LYRICA 75 MG CAPS TAKE 1 CAPSULE BY MOUTH TWICE DAILY 2013 PREGABALIN 57323929175 No Longer Active Carlton Hu MD Active LYRICA 100 MG CAPS Take 1 tab po BID for fibromyalgia PREGABALIN 16350438403 Active Carlton Hu MD Active TOPAMAX 25 MG TABS 1 qHS x 1 week, then 1 BID x 1 week, then 1 qAM and 2 qHS x 1 week, then 2 BID (migraine prevention) TOPIRAMAT E 88394877640 No Longer Active Jerica FUENTES Active TOPAMAX 50 MG TABS take 1 tab po BID for migraines. 12/07/10 TOPIRAMATE 90682313391 No Longer Active Jerica Osei RMA Ac tive TOPAMAX 100 MG TABS Take 1 tablet po bid TOPIRAMATE 4999 6876317 Active Elise Whitmore SHELL SIEVE 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 TRIAMCINOLONE ACETONIDE 0.1 % CREA apply three times daily prn r beatrice TRIAMCINOLONE ACETONIDE 15496052365 No Longer Active Carlton Hu MD Active PAXIL 40 MG TAB take 1 tab po qday for depression PAROXETINE HCL 65923805636 Active Elise Whitmore APRN Active CHERATUSSIN AC 100-10 MG/5ML SYRP 5ml po q6hr PRN Cough GUAIFENESIN-CODEINE 10923368858 No Longer Active Carlton Hu MD Active MEDROL (REYNA) 4 MG TABS 6 tabs on day 1, 5 tabs on d ay 2, 4 tabs on day 3, 3 tabs on day 4, 2 tabs on day 5, 1 tab on day 6 METHYLPREDNISOLONE 94179863484 No Longer Active Perez Mora MD Active AZITHROMYCIN 250 MG TABS 2 po qd x 1 day, then 1 po qd x 4 days AZITHROMYCIN 35956157477 No Longer Active Perez Mora MD Active PROPRANOLOL HCL 60 MG TABS 1 PO Q D PROPRANOL OL HCL 45401294106 No Longer Active Perez Mora MD Active CHERATUSSIN AC 100-10 MG/5ML SYRP take one tsp po Q 6hours prn c ough GUAIFENESIN-CODEINE 44717132081 No Longer Active Perez Means Active AUGMENTIN 875-125 MG TAB 1 tab by mouth twice daily with food 20 12/03/31 AMOXICILLIN-POT CLAVULANATE 92509810396 No Longer Active Chanel Mora MD Active CHERATUSSIN AC 100-10 MG/5ML SYRP 1 tsp by mouth every 4 hours as needed for cough GUAIFENESIN-CODEINE 89256992472 No Longer Activ e Hugo Restrepo MD Active ACETAMINOPHEN-CODEINE #3 300-30 MG TABS 1 PO Q 4-6 HRS PRN PAIN ACETAMINOPHEN-CODEINE 10578344771 No Longer Active Hugo Restrepo MD Active LEVAQUIN 500 MG TABS take one po QD LEVOFLOXACI N 70116910351 No Longer Active Griffin HERNANDEZ Active PREDNISONE 20 MG TAB Take 3 tabs daily for 3 days , 2 tabs daily for 3 days, 1 tab daily for 3 days, 1/2 tab daily for 3 days P REDNISONE 63731423583 No Longer Active Carlton Hu MD Active AVELOX 400 MG TABS 1 tab by mouth daily MOXIFLO XACIN HCL 05452673923 No Longer Active Carlton Hu MD Active CHERATUSSIN AC 100-10 MG/5ML SYRP 1 tsp by mouth every 4 hours as needed for cough GUAIFENESIN-CODEINE 51606730961 No Longer Activ e Hugo Restrepo MD Active AVELOX 400 MG TABS 1 tab by mouth daily MOXIFLO XACIN HCL 84840014441 No Longer Active Marcy De La Rosa MD PhD Active TERBINAFINE HCL 250 MG TABS 1 qDay TERBINAF INE HCL 94275858006 No Longer Active Marcy De La Rosa MD PhD Active CHERATUSSIN AC 100-10 MG/5ML SYRP 1 tsp by mouth every 4 hours as needed for cough GUAIFENESIN-CODEINE 51167922237 No Longer Activ e Marcy De La Rosa MD PhD Active AVELOX 400 MG TABS 1 tab by mouth daily MOXIFLO XACIN HCL 97083094674 No Longer Active Marcy De La Rosa MD PhD Active HYDROCODONE-ACETAMINOPHEN 5-325 MG TABS 1 po q 6hr PRN cough 201 05/09/16 HYDROCODONE-ACETAMINOPHEN 25292134453 No Longer Active Marcy De La Rosa MD PhD Active PREDNISONE 20 MG TAB 2 tabs daily for 3 days, 1 t ab daily for 3 days, 1/2 tab daily for 2 days PREDNISONE 71998127483 No Longer Active Carlton Hu MD Active CEFDINIR 300 MG CAPS by mouth twice a day CEFDI ODILIA 73734619723 No Longer Active Carlton Hu MD Active HYDROCHLOROTHIAZIDE 25 MG TABS 1 TAB PO DAILY H YDROCHLOROTHIAZIDE 34518752012 Active Carlton Hu MD Active ACETAMINOPHEN-CODEINE #3 300-30 MG TABS 1 tablet po q 4-6hrs prn pain ACETAMINOPHEN-CODEINE 65180307576 No Longer Active Ridge Bess DO Active ZITHROMAX 250 MG TAB 2 po today, then 1 po q days 2-5 AZITHROMYCIN 61300517042 No Longer Active Carlton Hu MD Acti ve CHERATUSSIN AC 100-10 MG/5ML SYRP take 1 tsp po q4-6 hours prn c ough GUAIFENESIN-CODEINE 50708530004 No Longer Active Carlton Hu MD Active ACETAMINOPHEN-CODEINE #3 300-30 MG TABS 1 PO Q 4-6 HR PRN PAIN 2 ACETAMINOPHEN-CODEINE 51909706144 No Longer Active Carlton rich MD Active LORTAB 7.5-500 MG/15ML ELIX 7.5 ml po q 4 hour prn cough HYDROCODONE-ACETAMINOPHEN 37484999266 No Longer Active Carlton Hu MD Active PREDNISONE 20 MG TAB 1 po bid 3 days, then 1 po q day 3 days 201 05/03/07 PREDNISONE 43711487208 No Longer Active Carlton Hu MD Active ELMIRON 100 MG CAPS 2 tablets in the am and 1 tablet at hs PENTOSAN POLYSULFATE SODIUM 54086973881 Active Carlton Hu MD Ac tive CEFDINIR 300 MG CAPS by mouth twice a day CEFDI ODILIA 52739976565 No Longer Active Carlton Hu MD Active CEFDINIR 300 MG CAPS by mouth twice a day CEFDI ODILIA 23891280859 No Longer Active Carlton Hu MD Active CEFDINIR 300 MG CAPS by mouth twice a day CEFDI ODILIA 85080940895 No Longer Active Carlton Hu MD Active TESSALON PERLES 100 MG CAP 1 tablet by mouth 3 times daily a s needed for cough BENZONATATE 09930486072 No Longer Active Carlton bustamante MD Active CEFDINIR 300 MG CAPS by mouth twice a day CEFDI ODILIA 72376024632 No Longer Active Carlton Hu MD Active ZITHROMAX Z-REYNA 250 MG TABS 2 today, then 1 daily for 4 days 201 04/09/17 AZITHROMYCIN 34656295162 No Longer Active Hugo Restrepo MD Active TESSALON PERLES 100 MG CAP 1 tablet by mouth 3 times daily a s needed for cough TESSALON PERLES 100 MG CAP 395895 BENZONATATE I nactive PREDNISONE 20 MG TAB 1 po bid 3 days, then 1 po q day 3 days 201 05/03/07 PREDNISONE 20 MG TAB 092008 PREDNISONE Inactive LORTAB 7.5-500 MG/15ML ELIX 7.5 ml po q 4 hour prn cough LORTAB 7.5-500 MG/15ML ELIX HYDROCODONE-ACETAMINOPHEN Inacti ve ACETAMINOPHEN-CODEINE #3 300-30 MG TABS 1 PO Q 4-6 HR PRN PAIN 2 ACETAMINOPHEN-CODEINE #3 300-30 MG TABS 357072 ACETAMIN OPHEN-CODEINE Inactive CHERATUSSIN AC 100-10 MG/5ML SYRP take 1 tsp po q4-6 hours prn c ough CHERATUSSIN AC 100-10 MG/5ML SYRP 855735 GUAIFENESIN-CO DEINE Inactive ACETAMINOPHEN-CODEINE #3 300-30 MG TABS 1 tablet po q 4-6hrs prn pain ACETAMINOPHEN-CODEINE #3 300-30 MG TABS 070503 ACETAMIN OPHEN-CODEINE Inactive HYDROCODONE-ACETAMINOPHEN 5-325 MG TABS 1 po q 6hr PRN cough 201 05/09/16 HYDROCODONE-ACETAMINOPHEN 5-325 MG TABS 785645 HYDROCODONE-ACETAMINOPHEN Inactive AVELOX 400 MG TABS 1 tab by mouth daily A VELOX 400 MG TABS 102794 MOXIFLOXACIN HCL Inactive CHERATUSSIN AC 100-10 MG/5ML SYRP 1 tsp by mouth every 4 hours as needed for cough CHERATUSSIN AC 100-10 MG/5ML SYRP 689679 GUAIFENESIN-CODEINE Inactive TERBINAFINE HCL 250 MG TABS 1 qDay TERBINAFINE HCL 250 MG TABS 985003 TERBINAFINE HCL Inactive CHERATUSSIN AC 100-10 MG/5ML SYRP 1 tsp by mouth every 4 hours as needed for cough CHERATUSSIN AC 100-10 MG/5ML SYRP 407828 GUAIFENESIN-CODEINE Inactive ACETAMINOPHEN-CODEINE #3 300-30 MG TABS 1 PO Q 4-6 HRS PRN PAIN ACETAMINOPHEN-CODEINE #3 300-30 MG TABS 907187 ACETAMINOPHEN-CODEIN E Inactive CHERATUSSIN AC 100-10 MG/5ML SYRP 1 tsp by mouth every 4 hours as needed for cough CHERATUSSIN AC 100-10 MG/5ML SYRP 422877 GUAIFENESIN-CODEINE Inactive AUGMENTIN 875-125 MG TAB 1 tab by mouth twice daily with food 20 12/03/31 AUGMENTIN 875-125 MG TAB 509175 AMOXICILLIN-POT CLAVULA EFE Inactive CHERATUSSIN AC 100-10 MG/5ML SYRP take one tsp po Q 6hours prn c ough CHERATUSSIN AC 100-10 MG/5ML SYRP 413443 GUAIFENESIN-CO DEINE Inactive PROPRANOLOL HCL 60 MG TABS 1 PO Q D P ROPRANOLOL HCL 60 MG TABS 354590 PROPRANOLOL HCL Inactive TOPAMAX 50 MG TABS take 1 tab po BID for migraines. 12/07/10 TOPAMAX 50 MG TABS 993686 TOPIRAMATE Inactive TOPAMAX 25 MG TABS 1 qHS x 1 week, then 1 BID x 1 week, then 1 qAM and 2 qHS x 1 week, then 2 BID (migraine prevention) TOPAMAX 2 5 MG TABS 766290 TOPIRAMATE Inactive LYRICA 75 MG CAPS TAKE 1 CAPSULE BY MOUTH TWICE DAILY LYRICA 75 MG CAPS PREGABALIN Inactive SYMBICORT 160-4.5 MCG/ACT AERO 2 puffs bid with rinse after 2011 SYMBICORT 160-4.5 MCG/ACT AERO BUDESONIDE-FORMOT SÁNCHEZ FUMARATE Inactive PROMETHAZINE-CODEINE 6.25-10 MG/5ML SYRP 1 tsp by mouth ever y 8 hours prn cough PROMETHAZINE-CODEINE 6.25-10 MG/5ML SYRP 531454 PROMETHAZINE-CODEINE Inactive CYMBALTA 30 MG CPEP 1 cap by mouth daily CYMBALTA 30 MG CPEP 725029 DULOXETINE HCL Inactive PREMARIN 0.625 MG TABS TAKE 1 TAB BY MOUTH DAILY 07/25 PREMARIN 0.625 MG TABS ESTROGENS CONJUGATED Inactive CHERATUSSIN AC 100-10 MG/5ML SYRP 1 tsp by mouth every 4 hours as needed for cough CHERATUSSIN AC 100-10 MG/5ML SYRP 238602 GUAIFENESIN-CODEINE Inactive PROMETHAZINE-CODEINE 6.25-10 MG/5ML SYRP 1 tsp by mout h every 6 hours if needed for cough PROMETHAZINE-CODEINE 6.25-10 MG/5ML SYRP 744926 PROMETHAZINE-CODEINE Inactive CHERATUSSIN AC 100-10 MG/5ML SYRP 1 tsp by mouth every 4 hours as needed for cough CHERATUSSIN AC 100-10 MG/5ML SYRP 070146 GUAIFENESIN-CODEINE Inactive FLUTICASONE PROPIONATE 50 MCG/ACT SUSP 1 to 2 sprays each no stril daily FLUTICASONE PROPIONATE 50 MCG/ACT SUSP 0842167 FLUTICASONE PROPIONATE Inactive PREDNISONE 20 MG ORAL TABS 3 tab PO qd x 2d, 2 tab PO qd x 2d, 1 tab PO qd x 2d, 1/2 tab PO qd x 2d PREDNISONE 20 MG ORAL TABS 523078 PREDNISONE Inactive LEVOFLOXACIN 500 MG ORAL TABS 1 tab PO daily x 10 days LEVOFLOXACIN 500 MG ORAL TABS 669269 LEVOFLOXACIN Inactive CYCLOBENZAPRINE HCL 10 MG TABS 1 tablet by mouth BID prn had cherelle n CYCLOBENZAPRINE HCL 10 MG TABS 903621 CYCLOBENZAPRINE H CL Inactive ZOCOR 40 MG TAB 1 tab by mouth daily ZOCOR 40 M G TAB 400878 SIMVASTATIN Inactive TUSSIONEX PENNKINETIC ER 10-8 MG/5ML LQCR 5ml po q12hr PRN Cough TUSSIONEX PENNKINETIC ER 10-8 MG/5ML LQCR HYDROCOD POLST-CHLORPHEN POLST Inactive ZITHROMAX Z-REYNA 250 MG TABS 2 today, then 1 daily for 4 days 201 04/09/17 ZITHROMAX Z-REYNA 250 MG TABS 9944867 AZITHROMYCIN Inac tive CEFDINIR 300 MG CAPS [...] q days 2-5 ZITHROMAX 250 MG TAB 2300745 AZITHROMYCIN Inactive CEFDINIR 300 MG CAPS by mouth twice a day CEFDINIR 300 MG CAPS 20020704 CEFDINIR Inactive PREDNISONE 20 MG TAB 2 tabs daily for 3 days, 1 t ab daily for 3 days, 1/2 tab daily for 2 days PREDNISONE 20 MG TAB 177630 PREDNISON E Inactive AVELOX 400 MG TABS 1 tab by mouth daily A VELOX 400 MG TABS 289593 MOXIFLOXACIN HCL Inactive AVELOX 400 MG TABS 1 tab by mouth daily A VELOX 400 MG TABS 446283 MOXIFLOXACIN HCL Inactive PREDNISONE 20 MG TAB Take 3 tabs daily for 3 days , 2 tabs daily for 3 days, 1 tab daily for 3 days, 1/2 tab daily for 3 days PREDNISONE 20 MG TAB 822569 PREDNISONE Inactive LEVAQUIN 500 MG TABS take one po QD LEVAQUIN 50 0 MG TABS 050180 LEVOFLOXACIN Inactive AZITHROMYCIN 250 MG TABS 2 po qd x 1 day, then 1 po qd x 4 days AZITHROMYCIN 250 MG TABS 6808167 AZITHROMYCIN Inactiv e MEDROL (REYNA) 4 MG TABS 6 tabs on day 1, 5 tabs on d ay 2, 4 tabs on day 3, 3 tabs on day 4, 2 tabs on day 5, 1 tab on day 6 MEDROL (REYNA) 4 MG TABS 414706 METHYLPREDNISOLONE Inactive CHERATUSSIN AC 100-10 MG/5ML SYRP 5ml po q6hr PRN Cough CHERATUSSIN AC 100-10 MG/5ML SYRP 136431 GUAIFENESIN-CODEINE Inacti ve TRIAMCINOLONE ACETONIDE 0.1 % CREA apply three times daily prn r beatrice TRIAMCINOLONE ACETONIDE 0.1 % [facility] 8488058 TRIAMCINOLONE ACETONIDE Inactive AZITHROMYCIN 250 MG TABS 2 po qd x 1 day, then 1 po qd x 4 days AZITHROMYCIN 250 MG TABS 3775233 AZITHROMYCIN Inactiv e MEDROL (REYNA) 4 MG TABS 6 pills x 1 day, then 5 pill s x 1 day then 4 pills x 1 day, then 3 pills x 1 day, then 2 pills x 1 day, then 1 pill x 1 day, then stop MEDROL (REYNA) 4 MG TABS 327746 METHYLPREDNISOLONE Inactive AMOXICILLIN 500 MG CAP 1 tab by mouth 3 times daily x 10 days 20 13/03/08 AMOXICILLIN 500 MG CAP 424471 AMOXICILLIN Inactive AMOXICILLIN 500 MG CAP 1 tab by mouth 3 times daily x 10 days 20 14/04/28 AMOXICILLIN 500 MG CAP 262082 AMOXICILLIN Inactive ZITHROMAX 250 MG TAB 2 po today, then 1 po q days 2-5 ZITHROMAX 250 MG TAB 1602122 AZITHROMYCIN Inactive AUGMENTIN 875-125 MG TAB 1 po BID x 10 days AUGMENTIN 875- 125 MG TAB 020221 AMOXICILLIN-POT CLAVULANATE Inactive ZITHROMAX Z-REYNA 250 MG TABS 2 today, then 1 daily for 4 days 201 08/07/20 ZITHROMAX Z-REYNA 250 MG TABS 1940145 AZITHROMYCIN Inac tive ZITHROMAX 250 MG TAB 2 po today, then 1 po q days 2-5 ZITHROMAX 250 MG TAB 2584681 AZITHROMYCIN Inactive ZITHROMAX Z-REYNA 250 MG TABS 2 today, then 1 daily for 4 days 201 08/30/03 ZITHROMAX Z-REYNA 250 MG TABS 8447871 AZITHROMYCIN Inac tive CEFDINIR 300 MG CAPS 1 po BID x 10 days C EFDINIR 300 MG CAPS 932634 CEFDINIR Inactive ZITHROMAX 250 MG TAB 2 po today, then 1 po q days 2-5 ZITHROMAX 250 MG TAB 1015883 AZITHROMYCIN Inactive LEVAQUIN 500 MG TAB 1 tablet by mouth daily LEVAQUIN 500 MG TAB 647481 LEVOFLOXACIN Inactive SINGULAIR 10 MG TABS 1 po qday for allergies 2 SINGULAIR 10 MG TABS 20010504 MONTELUKAST SODIUM Inactive AMOXICILLIN 500 MG CAPS 2 po BID x 10 days AMOXICILLIN 500 MG CAPS 231896 AMOXICILLIN Inactive PREDNISONE 20 MG TAB 2 tabs daily for 3 days, 1 t ab daily for 3 days, 1/2 tab daily for 2 days PREDNISONE 20 MG TAB 121204 PREDNISON E Inactive ZITHROMAX Z-REYNA 250 MG TABS 2 today, then 1 daily for 4 days 201 09/29/14 ZITHROMAX Z-REYNA 250 MG TABS 4129161 AZITHROMYCIN Inac tive Vital Signs Date Name Value Unit Range Description blood pressure, diastolic - 8462-4 69 mm[Hg] [...] Measured Encounters Code Encounter Date Provider Facility CPT-19161 Level 3 Est. Patient 14:22:19 SURGERY CENTER ADMINISTRATOR Diya cobian Formerly named [facility] CPT-73671 Level 3 Est. Patient 10:11:46 CDT Carlton rich MD [facility] CPT-88716 Level 3 Est. Patient 17:29:43 CDT Italo Formerly named [facility] CPT-72621 Level 3 Est. [facility] 11:58[facility]06 [facility] Level 4 Est. Patient 14:36:51 CDT Carlton rich MD [facility] CPT-71466 Level 3 Est. Patient 18:16:00 SURGERY CENTER ADMINISTRATOR Blaine HERNANDEZ [facility] CPT-59275 Level 3 Est. Patient 09:45:49 SURGERY CENTER ADMINISTRATOR Carlton rich MD [facility] CPT-11301 Level 3 Est. Patient 13:19:20 CDT Carlton rich MD [facility] CPT-47516 Level 3 Est. Patient 13:06:43 CDT Ridge tam DO [facility] CPT-01280 Level 3 Est. Patient 10:03:07 CDT Perez Mora MD [facility] CPT-92291 Level 3 Est. Patient 19:50:35 SURGERY CENTER ADMINISTRATOR Carlton rich MD [facility] CPT-78716 Level 4 Est. Patient 18:05:01 SURGERY CENTER ADMINISTRATOR Carlton rich MD [facility]-05579 Level 3 Est. Patient 10:45:55 SURGERY CENTER ADMINISTRATOR Hugo Restrepo MD [facility]-85182 Level 3 Est. Patient 14:12:49 CDT Griffin HERNANDEZ [facility]-31606 Level 3 Est. Patient 17:37:24 CDT Carlton rich MD [facility]-27751 Level 3 Est. Patient 16:51:54 CDT Carlton rich MD [facility]-01820 Level 3 Est. Patient 12:18:11 CDT Hugo Restrepo MD [facility]-21774 Level 3 Est. Patient 11:30:25 CDT Marcy crisostomo MD PhD [facility]-88097 Level 3 Est. Patient 12:00:47 SURGERY CENTER ADMINISTRATOR Carlton rich MD [facility]-48951 Level 3 Est. Patient 16:31:06 SURGERY CENTER ADMINISTRATOR Carlton rich MD [facility] CPT-80138 Level 3 Est. Patient 16:23:24 SURGERY CENTER ADMINISTRATOR Ridge tam DO [facility] CPT-92556 Level 3 Est. Patient 12:34:12 CDT Carlton rich MD [facility]-62817 Level 2 Est. Patient 15:43:33 CDT Robi armstrong MD [facility]-73640 Level 4 Est. Patient 14:04:44 CDT Carlton rich MD [facility]-53970 Level 3 Est. Patient 05:47:59 CDT Ridge tam DO [facility] CPT-21368 Level 3 Est. Patient 13:12:53 SURGERY CENTER ADMINISTRATOR Carlton rich MD [facility] CPT-01438 Level 3 Est. Patient 14:26:53 CDT Hugo Restrepo MD [facility] Procedures Code Procedure Name Date Entry Date Standard Desc ription CPT-J0696 Rocephin 1gm Inj Solr 14:32:13 CDT CPT-J1020 Depo Medrol 60 mg (Methyl Prednisolone A cetate) 14:32:13 CDT CPT-J1100 Decadron 6mg (Dexamethasone) 14:32:13 CDT 2 CPT-86487 Hip bilat min 2V w AP pelvis 13:16:20 CDT 2 CPT-40163 Pelvis only 13:07:33 CDT CPT-28157 Spec Collection and Handling Fee 11:25:12 C DT CPT-24016 Fluzone Quadrivalent Intramuscular Suspe nsion 0.5 ML 14:31:55 CDT CPT-74379 Abx/Therapy Injection 13:28:47 SURGERY CENTER ADMINISTRATOR CPT-J2930 Solu Medrol 125 mg (Methyl Prednisolone Sodium Succinate) 12:00:47 SURGERY CENTER ADMINISTRATOR CPT-07079 Venipuncture Draw Fee 11:33:31 CDT CPT-18852 EKG Trac and Interp 11:21:09 CDT CPT-82356 Chest 2V Frontal and Lat 11:21:09 CDT 12/15 CPT-67364 Venipuncture Draw Fee 08:02:34 CDT CPT-92471 Chest 2V Frontal and Lat 05:47:59 CDT 06/05
[2019-10-08] MEDS ORDERED: LIDOCAINE/EPI 1%-1:100,000 (XYLOCAINE) 20ML ONE (08:07)
--- OUTSIDE RECORDS SUMMARY | 2019-10-08 08:07 | XMS REPORT | Clinical Summary ---
Author Author Caitlin, Juliana Martinez Organization [facility] Address Unknown Phone Unavailable Allergies, Adverse Reactions, [...] sites Sinusitis 473.9 Active Diya De Guzman GEAR LAPPER Unspecified sinusitis (chronic) Bronchitis-Acute 466.0 Active Carlton Hu MD Acute bronchitis URI - acute 465.9 Active Elise Whitmore GEAR LAPPER Acute upper respiratory infections of unspecified site Pharyngitis acute 462 Active Elise Whitmore A PRN Acute pharyngitis Rhinitis, acute 460 Active Elise Whitmore APR N Acute nasopharyngitis [common cold] Sinusitis 473.9 Active Diya De Guzman GEAR LAPPER Unspecified sinusitis (chronic) BRONCHITIS ICD-490 Inactive Hugo [...] bid with ri nse after MOMETASONE FUROATE 52496913398 Active Elise Whitmore APRN Active FLUTICASONE PROPIONATE 50 MCG/ACT SUSP 2 sprays each n ostril daily until bottle is empty FLUTICASONE PROPIONATE 80463547908 Active Lyndsay Whitmore APRN Active ZITHROMAX Z-REYNA 250 MG TABS 2 today, then 1 daily for 4 days 201 09/29/14 AZITHROMYCIN 17027688160 No Longer Active Elise Whitmore APRN Active TUSSIONEX PENNKINETIC ER 10-8 MG/5ML LQCR 5ml po q12hr PRN Cough HYDROCOD POLST-CHLORPHEN POLST 17612260872 No Longer Active Elise Whitmore APRN Active MUCINEX D 60-600 MG [id number] 1 tab po q am PSEUDOEPHEDRINE-GUAIFENESIN 10864321281 Active Jillina Frazell GEAR LAPPER Active PREDNISONE 20 MG TAB 2 tabs daily for 3 days, 1 t ab daily for 3 days, 1/2 tab daily for 2 days PREDNISONE 77952597873 No Longer Active Jillina Frazell GEAR LAPPER Active AMOXICILLIN 500 MG CAPS 2 po BID x 10 days AMOX ICILLIN 17622473836 No Longer Active Jillina Frazell GEAR LAPPER Active SINGULAIR 10 MG TABS 1 po qday for allergies 2 MONTELUKAST SODIUM 15857979652 No Longer Active Carlton Hu MD Acti ve LEVAQUIN 500 MG TAB 1 tablet by mouth daily LEV OFLOXACIN 15143294046 No Longer Active Carlton Hu MD Active FLUTICASONE PROPIONATE 50 MCG/ACT SUSP 2 sprays each n ostril daily for 2 weeks, then 1 spray each nostril daily. FLUTICASONE PRO PIONATE 92941123086 Active Elise Whitmore APRN Active ZITHROMAX 250 MG TAB 2 po today, then 1 po q days 2-5 AZITHROMYCIN 06246768589 No Longer Active Elise Whitmore APRN Acti ve XANAX 0.5 MG TABS one tablet by mouth daily prn anxiety ALPRAZOLAM 51723600051 Active Elise Whitmore APRN Active CYMBALTA 30 MG CPEP 1 cap by mouth daily for depression DULOXETINE HCL 91400332585 Active Carlton Hu MD Active CEFDINIR 300 MG CAPS 1 po BID x 10 days CEFDINI R 31100658053 No Longer Active Carlton Hu MD Active ZOCOR 40 MG TAB 1 tab by mouth daily SIMVASTATI N 86387687524 No Longer Active Carlton Hu MD Active CYCLOBENZAPRINE HCL 10 MG TABS 1 tablet by mouth BID prn had cherelle n CYCLOBENZAPRINE HCL 39610223571 No Longer Active Carlton Hu MD Active LEVOFLOXACIN 500 MG ORAL TABS 1 tab PO daily x 10 days LEVOFLOXACIN 43438342894 No Longer Active Carlton Hu MD Acti ve PREDNISONE 20 MG ORAL TABS 3 tab PO qd x 2d, 2 tab PO qd x 2d, 1 tab PO qd x 2d, 1/2 tab PO qd x 2d PREDNISONE 29654007599 No Longer Active Carlton Hu MD Active TUSSIONEX PENNKINETIC ER 10-8 MG/5ML ORAL LQCR 5 mL PO q 12 hrs PRN cough HYDROCOD POLST-CHLORPHEN POLST 36484641715 Active Elise Whitmore APRN Active FLUTICASONE PROPIONATE 50 MCG/ACT SUSP 1 to 2 sprays each no stril daily FLUTICASONE PROPIONATE 75780152514 No Longer Active T homas W Cloven PA Active CHERATUSSIN AC 100-10 MG/5ML SYRP 1 tsp by mouth every 4 hours as needed for cough GUAIFENESIN-CODEINE 05725477085 No Longer Activ e Blaine HERNANDEZ Active PROMETHAZINE-CODEINE 6.25-10 MG/5ML SYRP 1 tsp by mout h every 6 hours if needed for cough PROMETHAZINE-CODEINE 06556639036 No Long er Active Blaine HERNANDEZ Active CHERATUSSIN AC 100-10 MG/5ML SYRP 1 tsp by mouth every 4 hours as needed for cough GUAIFENESIN-CODEINE 57919956506 No Longer Activ e Blaine HERNANDEZ Active ZITHROMAX Z-REYNA 250 MG TABS 2 today, then 1 daily for 4 days 201 08/30/03 AZITHROMYCIN 84065604648 No Longer Active Columba Raida Act nael ZITHROMAX 250 MG TAB 2 po today, then 1 po q days 2-5 AZITHROMYCIN 51782039839 No Longer Active Carlton Hu MD Acti ve ZITHROMAX Z-REYNA 250 MG TABS 2 today, then 1 daily for 4 days 201 08/07/20 AZITHROMYCIN 03730632475 No Longer Active Columba Raida Act nael AUGMENTIN 875-125 MG TAB 1 po BID x 10 days AMOXICILLIN- POT CLAVULANATE 74923914703 No Longer Active Diya De Guzman APRN Active ZITHROMAX 250 MG TAB 2 po today, then 1 po q days 2-5 AZITHROMYCIN 07416413869 No Longer Active Carlton Hu MD Acti ve TRAMADOL HCL 50 MG TABS 1 po tid with ES Tylenol TRAMADOL HCL 94053449226 Active Carlton Hu MD Active PREMARIN 0.625 MG TABS TAKE 1 TAB BY MOUTH DAILY 07/25 ESTROGENS CONJUGATED 47368383400 No Longer Active Ridge Bess DO Active CYMBALTA 30 MG CPEP 1 cap by mouth daily DULOXE SNEHA HCL 74038904255 No Longer Active Ridge Bess DO Active AMOXICILLIN 500 MG CAP 1 tab by mouth 3 times daily x 10 days 20 14/04/28 AMOXICILLIN 38846360048 No Longer Active Carlton Hu MD Active AMOXICILLIN 500 MG CAP 1 tab by mouth 3 times daily x 10 days 20 13/03/08 AMOXICILLIN 29331160082 No Longer Active Carlton Hu MD Active PROMETHAZINE-CODEINE 6.25-10 MG/5ML SYRP 1 tsp by mouth ever y 8 hours prn cough PROMETHAZINE-CODEINE 55203861317 No Longer Active Robert Hu MD Active MEDROL (REYNA) 4 MG TABS 6 pills x 1 day, then 5 pill s x 1 day then 4 pills x 1 day, then 3 pills x 1 day, then 2 pills x 1 day, then 1 pill x 1 day, then stop METHYLPREDNISOLONE 40792372511 No Longer Active Parris Mora MD Active AZITHROMYCIN 250 MG TABS 2 po qd x 1 day, then 1 po qd x 4 days AZITHROMYCIN 91195215675 No Longer Active Perez Mora MD Active SYMBICORT 160-4.5 MCG/ACT AERO 2 puffs bid with rinse after 2011 BUDESONIDE-FORMOTEROL FUMARATE 84231546761 No Longer Active Perez Mora MD Active LYRICA 75 MG CAPS TAKE 1 CAPSULE BY MOUTH TWICE DAILY 2013 PREGABALIN 18104619947 No Longer Active Carlton Hu MD Active LYRICA 100 MG CAPS Take 1 tab po BID for fibromyalgia PREGABALIN 94328112354 Active Carlton Hu MD Active TOPAMAX 25 MG TABS 1 qHS x 1 week, then 1 BID x 1 week, then 1 qAM and 2 qHS x 1 week, then 2 BID (migraine prevention) TOPIRAMAT E 18946309571 No Longer Active Jerica FUENTES Active TOPAMAX 50 MG TABS take 1 tab po BID for migraines. 12/07/10 TOPIRAMATE 17844611186 No Longer Active Jerica Osei RMA Ac tive TOPAMAX 100 MG TABS Take 1 tablet po bid TOPIRAMATE 4999 7482618 Active Elise Whitmore GEAR LAPPER Active TRIAMCINOLONE ACETONIDE 0.1 % CREA apply three times daily prn r beatrice TRIAMCINOLONE ACETONIDE 19521903636 No Longer Active Carlton Hu MD Active PAXIL 40 MG TAB take 1 tab po qday for depression PAROXETINE HCL 57012234589 Active Elise Whitmore APRN Active CHERATUSSIN AC 100-10 MG/5ML SYRP 5ml po q6hr PRN Cough GUAIFENESIN-CODEINE 19103012192 No Longer Active Carlton Hu MD Active MEDROL (REYNA) 4 MG TABS 6 tabs on day 1, 5 tabs on d ay 2, 4 tabs on day 3, 3 tabs on day 4, 2 tabs on day 5, 1 tab on day 6 METHYLPREDNISOLONE 56950975210 No Longer Active Perez Mora MD Active AZITHROMYCIN 250 MG TABS 2 po qd x 1 day, then 1 po qd x 4 days AZITHROMYCIN 03645155218 No Longer Active Perez Mora MD Active PROPRANOLOL HCL 60 MG TABS 1 PO Q D PROPRANOL OL HCL 13281445928 No Longer Active Perez Mora MD Active CHERATUSSIN AC 100-10 MG/5ML SYRP take one tsp po Q 6hours prn c ough GUAIFENESIN-CODEINE 40210234971 No Longer Active Perez Means Active AUGMENTIN 875-125 MG TAB 1 tab by mouth twice daily with food 20 12/03/31 AMOXICILLIN-POT CLAVULANATE 49004077811 No Longer Active Chanel Mora MD Active CHERATUSSIN AC 100-10 MG/5ML SYRP 1 tsp by mouth every 4 hours as needed for cough GUAIFENESIN-CODEINE 51029597801 No Longer Activ e Hugo Restrepo MD Active ACETAMINOPHEN-CODEINE #3 300-30 MG TABS 1 PO Q 4-6 HRS PRN PAIN ACETAMINOPHEN-CODEINE 79521549586 No Longer Active uHgo Restrepo MD Active LEVAQUIN 500 MG TABS take one po QD LEVOFLOXACI N 26292068244 No Longer Active Griffin HERNANDEZ Active PREDNISONE 20 MG TAB Take 3 tabs daily for 3 days , 2 tabs daily for 3 days, 1 tab daily for 3 days, 1/2 tab daily for 3 days P REDNISONE 19389842176 No Longer Active Carlton Hu MD Active AVELOX 400 MG TABS 1 tab by mouth daily MOXIFLO XACIN HCL 64352003700 No Longer Active Carlton Hu MD Active CHERATUSSIN AC 100-10 MG/5ML SYRP 1 tsp by mouth every 4 hours as needed for cough GUAIFENESIN-CODEINE 61193903914 No Longer Activ e Hugo Restrepo MD Active AVELOX 400 MG TABS 1 tab by mouth daily MOXIFLO XACIN HCL 76897815191 No Longer Active Marcy De La Rosa MD PhD Active TERBINAFINE HCL 250 MG TABS 1 qDay TERBINAF INE HCL 01111495429 No Longer Active Marcy De La Rosa MD PhD Active CHERATUSSIN AC 100-10 MG/5ML SYRP 1 tsp by mouth every 4 hours as needed for cough GUAIFENESIN-CODEINE 39901926013 No Longer Activ e Marcy De La Rosa MD PhD Active AVELOX 400 MG TABS 1 tab by mouth daily MOXIFLO XACIN HCL 38873372344 No Longer Active Marcy De La Rosa MD PhD Active HYDROCODONE-ACETAMINOPHEN 5-325 MG TABS 1 po q 6hr PRN cough 201 05/09/16 HYDROCODONE-ACETAMINOPHEN 29531252377 No Longer Active Marcy De La Rosa MD PhD Active PREDNISONE 20 MG TAB 2 tabs daily for 3 days, 1 t ab daily for 3 days, 1/2 tab daily for 2 days PREDNISONE 43081663621 No Longer Active Carlton Hu MD Active CEFDINIR 300 MG CAPS by mouth twice a day CEFDI ODILIA 61743857506 No Longer Active Carlton Hu MD Active HYDROCHLOROTHIAZIDE 25 MG TABS 1 TAB PO DAILY H YDROCHLOROTHIAZIDE 73873382362 Active Carlton Hu MD Active ACETAMINOPHEN-CODEINE #3 300-30 MG TABS 1 tablet po q 4-6hrs prn pain ACETAMINOPHEN-CODEINE 86959147530 No Longer Active Ridge Bess DO Active ZITHROMAX 250 MG TAB 2 po today, then 1 po q days 2-5 AZITHROMYCIN 19990794499 No Longer Active Carlton Hu MD Acti ve CHERATUSSIN AC 100-10 MG/5ML SYRP take 1 tsp po q4-6 hours prn c ough GUAIFENESIN-CODEINE 07853664793 No Longer Active Carlton Hu MD Active ACETAMINOPHEN-CODEINE #3 300-30 MG TABS 1 PO Q 4-6 HR PRN PAIN 2 ACETAMINOPHEN-CODEINE 43601941509 No Longer Active Carlton rich MD Active LORTAB 7.5-500 MG/15ML ELIX 7.5 ml po q 4 hour prn cough HYDROCODONE-ACETAMINOPHEN 89566418369 No Longer Active Carlton Hu MD Active PREDNISONE 20 MG TAB 1 po bid 3 days, then 1 po q day 3 days 201 05/03/07 PREDNISONE 79385784258 No Longer Active Carlton Hu MD Active ELMIRON 100 MG CAPS 2 tablets in the am and 1 tablet at hs PENTOSAN POLYSULFATE SODIUM 29168401877 Active Carlton Hu MD Ac tive CEFDINIR 300 MG CAPS by mouth twice a day CEFDI ODILIA 74375255505 No Longer Active Carlton Hu MD Active CEFDINIR 300 MG CAPS by mouth twice a day CEFDI ODILIA 46153101574 No Longer Active Carlton Hu MD Active CEFDINIR 300 MG CAPS by mouth twice a day CEFDI ODILIA 23670730211 No Longer Active Carlton Hu MD Active TESSALON PERLES 100 MG CAP 1 tablet by mouth 3 times daily a s needed for cough BENZONATATE 64834444037 No Longer Active Carlton bustamante MD Active CEFDINIR 300 MG CAPS by mouth twice a day CEFDI ODILIA 46621161591 No Longer Active Carlton Hu MD Active ZITHROMAX Z-REYNA 250 MG TABS 2 today, then 1 daily for 4 days 201 04/09/17 AZITHROMYCIN 72205854828 No Longer Active Hugo Restrepo MD Active TESSALON PERLES 100 MG CAP 1 tablet by mouth 3 times daily a s needed for cough TESSALON PERLES 100 MG CAP 493309 BENZONATATE I nactive PREDNISONE 20 MG TAB 1 po bid 3 days, then 1 po q day 3 days 201 05/03/07 PREDNISONE 20 MG TAB 585541 PREDNISONE Inactive LORTAB 7.5-500 MG/15ML ELIX 7.5 ml po q 4 hour prn cough LORTAB 7.5-500 MG/15ML ELIX HYDROCODONE-ACETAMINOPHEN Inacti ve ACETAMINOPHEN-CODEINE #3 300-30 MG TABS 1 PO Q 4-6 HR PRN PAIN 2 ACETAMINOPHEN-CODEINE #3 300-30 MG TABS 587039 ACETAMIN OPHEN-CODEINE Inactive CHERATUSSIN AC 100-10 MG/5ML SYRP take 1 tsp po q4-6 hours prn c ough CHERATUSSIN AC 100-10 MG/5ML SYRP 337581 GUAIFENESIN-CO DEINE Inactive ACETAMINOPHEN-CODEINE #3 300-30 MG TABS 1 tablet po q 4-6hrs prn pain ACETAMINOPHEN-CODEINE #3 300-30 MG TABS 507629 ACETAMIN OPHEN-CODEINE Inactive HYDROCODONE-ACETAMINOPHEN 5-325 MG TABS 1 po q 6hr PRN cough 201 05/09/16 HYDROCODONE-ACETAMINOPHEN 5-325 MG TABS 148882 HYDROCODONE-ACETAMINOPHEN Inactive AVELOX 400 MG TABS 1 tab by mouth daily A VELOX 400 MG TABS 130748 MOXIFLOXACIN HCL Inactive CHERATUSSIN AC 100-10 MG/5ML SYRP 1 tsp by mouth every 4 hours as needed for cough CHERATUSSIN AC 100-10 MG/5ML SYRP 194928 GUAIFENESIN-CODEINE Inactive TERBINAFINE HCL 250 MG TABS 1 qDay TERBINAFINE HCL 250 MG TABS 574233 TERBINAFINE HCL Inactive CHERATUSSIN AC 100-10 MG/5ML SYRP 1 tsp by mouth every 4 hours as needed for cough CHERATUSSIN AC 100-10 MG/5ML SYRP 728065 GUAIFENESIN-CODEINE Inactive ACETAMINOPHEN-CODEINE #3 300-30 MG TABS 1 PO Q 4-6 HRS PRN PAIN ACETAMINOPHEN-CODEINE #3 300-30 MG TABS 755174 ACETAMINOPHEN-CODEIN E Inactive CHERATUSSIN AC 100-10 MG/5ML SYRP 1 tsp by mouth every 4 hours as needed for cough CHERATUSSIN AC 100-10 MG/5ML SYRP 881213 GUAIFENESIN-CODEINE Inactive AUGMENTIN 875-125 MG TAB 1 tab by mouth twice daily with food 20 12/03/31 AUGMENTIN 875-125 MG TAB 647119 AMOXICILLIN-POT CLAVULA EFE Inactive CHERATUSSIN AC 100-10 MG/5ML SYRP take one tsp po Q 6hours prn c ough CHERATUSSIN AC 100-10 MG/5ML SYRP 823432 GUAIFENESIN-CO DEINE Inactive PROPRANOLOL HCL 60 MG TABS 1 PO Q D P ROPRANOLOL HCL 60 MG TABS 478266 PROPRANOLOL HCL Inactive TOPAMAX 50 MG TABS take 1 tab po BID for migraines. 12/07/10 TOPAMAX 50 MG TABS 771513 TOPIRAMATE Inactive TOPAMAX 25 MG TABS 1 qHS x 1 week, then 1 BID x 1 week, then 1 qAM and 2 qHS x 1 week, then 2 BID (migraine prevention) TOPAMAX 2 5 MG TABS 979818 TOPIRAMATE Inactive LYRICA 75 MG CAPS TAKE 1 CAPSULE BY MOUTH TWICE DAILY LYRICA 75 MG CAPS PREGABALIN Inactive SYMBICORT 160-4.5 MCG/ACT AERO 2 puffs bid with rinse after 2011 SYMBICORT 160-4.5 MCG/ACT AERO BUDESONIDE-FORMOT SÁNCHEZ FUMARATE Inactive PROMETHAZINE-CODEINE 6.25-10 MG/5ML SYRP 1 tsp by mouth ever y 8 hours prn cough PROMETHAZINE-CODEINE 6.25-10 MG/5ML SYRP 884086 PROMETHAZINE-CODEINE Inactive CYMBALTA 30 MG CPEP 1 cap by mouth daily CYMBALTA 30 MG CPEP 500562 DULOXETINE HCL Inactive PREMARIN 0.625 MG TABS TAKE 1 TAB BY MOUTH DAILY 07/25 PREMARIN 0.625 MG TABS ESTROGENS CONJUGATED Inactive CHERATUSSIN AC 100-10 MG/5ML SYRP 1 tsp by mouth every 4 hours as needed for cough CHERATUSSIN AC 100-10 MG/5ML SYRP 973625 GUAIFENESIN-CODEINE Inactive PROMETHAZINE-CODEINE 6.25-10 MG/5ML SYRP 1 tsp by mout h every 6 hours if needed for cough PROMETHAZINE-CODEINE 6.25-10 MG/5ML SYRP 550414 PROMETHAZINE-CODEINE Inactive CHERATUSSIN AC 100-10 MG/5ML SYRP 1 tsp by mouth every 4 hours as needed for cough CHERATUSSIN AC 100-10 MG/5ML SYRP 353131 GUAIFENESIN-CODEINE Inactive FLUTICASONE PROPIONATE 50 MCG/ACT SUSP 1 to 2 sprays each no stril daily FLUTICASONE PROPIONATE 50 MCG/ACT SUSP 1465214 FLUTICASONE PROPIONATE Inactive PREDNISONE 20 MG ORAL TABS 3 tab PO qd x 2d, 2 tab PO qd x 2d, 1 tab PO qd x 2d, 1/2 tab PO qd x 2d PREDNISONE 20 MG ORAL TABS 645619 PREDNISONE Inactive LEVOFLOXACIN 500 MG ORAL TABS 1 tab PO daily x 10 days LEVOFLOXACIN 500 MG ORAL TABS 120982 LEVOFLOXACIN Inactive CYCLOBENZAPRINE HCL 10 MG TABS 1 tablet by mouth BID prn had cherelle n CYCLOBENZAPRINE HCL 10 MG TABS 691300 CYCLOBENZAPRINE H CL Inactive ZOCOR 40 MG TAB 1 tab by mouth daily ZOCOR 40 M G TAB 753744 SIMVASTATIN Inactive TUSSIONEX PENNKINETIC ER 10-8 MG/5ML LQCR 5ml po q12hr PRN Cough TUSSIONEX PENNKINETIC ER 10-8 MG/5ML LQCR HYDROCOD POLST-CHLORPHEN POLST Inactive ZITHROMAX Z-REYNA 250 MG TABS 2 today, then 1 daily for 4 days 201 04/09/17 ZITHROMAX Z-REYNA 250 MG TABS 8735291 AZITHROMYCIN Inac tive CEFDINIR 300 MG CAPS [...] q days 2-5 ZITHROMAX 250 MG TAB 7909086 AZITHROMYCIN Inactive CEFDINIR 300 MG CAPS by mouth twice a day CEFDINIR 300 MG CAPS 20020704 CEFDINIR Inactive PREDNISONE 20 MG TAB 2 tabs daily for 3 days, 1 t ab daily for 3 days, 1/2 tab daily for 2 days PREDNISONE 20 MG TAB 441123 PREDNISON E Inactive AVELOX 400 MG TABS 1 tab by mouth daily A VELOX 400 MG TABS 824186 MOXIFLOXACIN HCL Inactive AVELOX 400 MG TABS 1 tab by mouth daily A VELOX 400 MG TABS 852024 MOXIFLOXACIN HCL Inactive PREDNISONE 20 MG TAB Take 3 tabs daily for 3 days , 2 tabs daily for 3 days, 1 tab daily for 3 days, 1/2 tab daily for 3 days PREDNISONE 20 MG TAB 142684 PREDNISONE Inactive LEVAQUIN 500 MG TABS take one po QD LEVAQUIN 50 0 MG TABS 628995 LEVOFLOXACIN Inactive AZITHROMYCIN 250 MG TABS 2 po qd x 1 day, then 1 po qd x 4 days AZITHROMYCIN 250 MG TABS 0383558 AZITHROMYCIN Inactiv e MEDROL (REYNA) 4 MG TABS 6 tabs on day 1, 5 tabs on d ay 2, 4 tabs on day 3, 3 tabs on day 4, 2 tabs on day 5, 1 tab on day 6 MEDROL (REYNA) 4 MG TABS 218104 METHYLPREDNISOLONE Inactive CHERATUSSIN AC 100-10 MG/5ML SYRP 5ml po q6hr PRN Cough CHERATUSSIN AC 100-10 MG/5ML SYRP 242420 GUAIFENESIN-CODEINE Inacti ve TRIAMCINOLONE ACETONIDE 0.1 % CREA apply three times daily prn r beatrice TRIAMCINOLONE ACETONIDE 0.1 % [facility] 3189419 TRIAMCINOLONE ACETONIDE Inactive AZITHROMYCIN 250 MG TABS 2 po qd x 1 day, then 1 po qd x 4 days AZITHROMYCIN 250 MG TABS 7789931 AZITHROMYCIN Inactiv e MEDROL (REYNA) 4 MG TABS 6 pills x 1 day, then 5 pill s x 1 day then 4 pills x 1 day, then 3 pills x 1 day, then 2 pills x 1 day, then 1 pill x 1 day, then stop MEDROL (REYNA) 4 MG TABS 062717 METHYLPREDNISOLONE Inactive AMOXICILLIN 500 MG CAP 1 tab by mouth 3 times daily x 10 days 20 13/03/08 AMOXICILLIN 500 MG CAP 843365 AMOXICILLIN Inactive AMOXICILLIN 500 MG CAP 1 tab by mouth 3 times daily x 10 days 20 14/04/28 AMOXICILLIN 500 MG CAP 061103 AMOXICILLIN Inactive ZITHROMAX 250 MG TAB 2 po today, then 1 po q days 2-5 ZITHROMAX 250 MG TAB 1569936 AZITHROMYCIN Inactive AUGMENTIN 875-125 MG TAB 1 po BID x 10 days AUGMENTIN 875- 125 MG TAB 951166 AMOXICILLIN-POT CLAVULANATE Inactive ZITHROMAX Z-REYNA 250 MG TABS 2 today, then 1 daily for 4 days 201 08/07/20 ZITHROMAX Z-REYNA 250 MG TABS 8087199 AZITHROMYCIN Inac tive ZITHROMAX 250 MG TAB 2 po today, then 1 po q days 2-5 ZITHROMAX 250 MG TAB 1028811 AZITHROMYCIN Inactive ZITHROMAX Z-REYNA 250 MG TABS 2 today, then 1 daily for 4 days 201 08/30/03 ZITHROMAX Z-REYNA 250 MG TABS 0178855 AZITHROMYCIN Inac tive CEFDINIR 300 MG CAPS 1 po BID x 10 days C EFDINIR 300 MG CAPS 684307 CEFDINIR Inactive ZITHROMAX 250 MG TAB 2 po today, then 1 po q days 2-5 ZITHROMAX 250 MG TAB 8291461 AZITHROMYCIN Inactive LEVAQUIN 500 MG TAB 1 tablet by mouth daily LEVAQUIN 500 MG TAB 493202 LEVOFLOXACIN Inactive SINGULAIR 10 MG TABS 1 po qday for allergies 2 SINGULAIR 10 MG TABS 20010504 MONTELUKAST SODIUM Inactive AMOXICILLIN 500 MG CAPS 2 po BID x 10 days AMOXICILLIN 500 MG CAPS 811868 AMOXICILLIN Inactive PREDNISONE 20 MG TAB 2 tabs daily for 3 days, 1 t ab daily for 3 days, 1/2 tab daily for 2 days PREDNISONE 20 MG TAB 636499 PREDNISON E Inactive ZITHROMAX Z-REYNA 250 MG TABS 2 today, then 1 daily for 4 days 201 09/29/14 ZITHROMAX Z-REYNA 250 MG TABS 3227120 AZITHROMYCIN Inac tive Vital Signs Date Name [...] - 3141-9 141 [lb_av] Weigh t Measured blood pressure, diastolic - 8462-4 76 mm[Hg] BP srinivasan blood pressure, systolic - 8480-6 119 mm[Hg] BP sys pulse rate E&M - 8867-4 92 /min H eart rate temperature E&M 98.6 [degF] Body temp erature weight E&M - 3141-9 138.5 [lb_av] Weigh t Measured Encounters Code Encounter Date Provider Facility CPT-02863 Level 3 Est. Patient 14:22:19 PRESIDENT [employer]OUND[employer] Diya cobian GEAR LAPPER [facility] CPT-50982 Level 3 Est. Patient 10:11:46 CDT Carlton rich MD [facility] CPT-85209 Level 3 Est. Patient 17:29:43 CDT Italo GEAR [employer]PER [facility] CPT-90322 Level 3 Est. Patient 11:58:06 CDT Italo GEAR LAPPER [facility] CPT-35667 Level 4 Est. Patient 14:36:51 CDT Carlton rich MD [facility] CPT-94886 Level 3 Est. Patient 18:16:00 PRESIDENT CEO [employer] FOUNDER Blaine HERNANDEZ [facility] CPT-75123 Level 3 Est. Patient 09:45:49 PRESIDENT CEO [employer] FOUNDER Carlton rich MD [facility] CPT-19278 Level 3 Est. Patient 13:19:20 CDT Carlton rich MD [facility] CPT-04690 Level 3 Est. Patient 13:06:43 CDT Ridge tam DO [facility] CPT-96086 Level 3 Est. Patient 10:03:07 CDT Perez Mora MD [facility] CPT-98147 Level 3 Est. Patient 19:50:35 PRESIDENT CEO [employer] Carlton rich MD [facility] CPT-92543 Level 4 Est. Patient 18:05:01 PRESIDENT CEO [employer] FOUNDER Carlton rich MD [facility]-22158 Level 3 Est. Patient 10:45:55 PRESIDENT CEO [employer] FOUNDER Hugo Restrepo MD [facility]-46030 Level 3 Est. Patient 14:12:49 CDT Griffin HERNANDEZ [facility] CPT-28913 Level 3 Est. Patient 17:37:24 CDT Carlton rich MD [facility] CPT-85967 Level 3 Est. Patient 16:51:54 CDT Carlton rich MD [facility] CPT-61006 Level 3 Est. Patient 12:18:11 CDT Hugo Restrepo MD [facility] CPT-40687 Level 3 Est. Patient 11:30:25 CDT Marcy crisostomo MD PhD [facility] CPT-95433 Level 3 Est. Patient 12:00:47 PRESIDENT CEO [employer]ER Carlton rich MD [facility]-97889 Level 3 Est. Patient 16:31:06 PRESIDENT CEO [employer]OUNDER Carlton rich MD [facility] CPT-35632 Level 3 Est. Patient 16:23:24 PRESIDENT CEO [employer] FOUNDER Ridge tam DO [facility]-16937 Level 3 Est. Patient 12:34:12 CDT Carlton rich MD [facility] CPT-73766 Level 2 Est. Patient 15:43:33 CDT Robi armstrong MD [facility] CPT-93026 Level 4 Est. Patient 14:04:44 CDT Carlton rich MD [facility] CPT-11783 Level 3 Est. Patient 05:47:59 CDT Ridge Jaun Celeste tam DO [facility] CPT-98955 Level 3 Est. Patient 13:12:53 PRESIDENT CEO [employer]ER Carlton rich MD [facility] CPT-92694 Level 3 Est. Patient 14:26:53 CDT Hugo Restrepo MD [facility] Procedures Code Procedure Name Date Entry Date Standard Desc ription CPT-J0696 Rocephin 1gm Inj Solr 14:32:13 CDT CPT-J1020 Depo Medrol 60 mg (Methyl Prednisolone A cetate) 14:32:13 CDT CPT-J1100 Decadron 6mg (Dexamethasone) 14:32:13 CDT 2 CPT-81378 Hip bilat min 2V w AP pelvis 13:16:20 CDT 2 CPT-15052 Pelvis only 13:07:33 CDT CPT-39837 Spec Collection and Handling Fee 11:25:12 C DT CPT-38857 Fluzone Quadrivalent Intramuscular Suspe nsion 0.5 ML 14:31:55 CDT CPT-78558 Abx/Therapy Injection 13:28:47 [employer]IDENT [employer] CPT-J2930 Solu Medrol 125 mg (Methyl Prednisolone Sodium Succinate) 12:00:47 [employer]IDENT [employer] CPT-08674 Venipuncture Draw Fee 11:33:31 CDT CPT-32895 EKG Trac and Interp 11:21:09 CDT CPT-48903 Chest 2V Frontal and Lat 11:21:09 CDT 12/15 CPT-08042 Venipuncture Draw Fee 08:02:34 CDT CPT-44640 Chest 2V Frontal and Lat 05:47:59 CDT 06/05
--- OUTSIDE RECORDS SUMMARY | 2019-10-08 08:07 | XMS REPORT | Clinical Summary ---
Author Author Caitlin, Juliana Martinez Organization [employer] [facility] Address Unknown Phone Unavailable Allergies, Adverse Reactions, [...] Provider Patient Instruction TERBINAFINE HCL 250 MG TABS 1 qDay for nail fungus 201 10/08/16 TERBINAFINE HCL 30377934290 Active Carlton Hu MD Activ e TUSSIONEX PENNKINETIC ER 10-8 MG/5ML LQCR 5ml po q12hr PRN Cough 20 14/02/07 HYDROCOD POLST-CHLORPHEN POLST 21242612657 Active Carlton Hu MD Active PREDNISONE 20 MG TAB 1 tab twice daily for 3 day, then one d aily for three days PREDNISONE 56065579780 Active Carlton Hu MD Active AMOXICILLIN 500 MG CAPS 1 cap by mouth three times a day AMOXICILLIN 55059567978 Active Carlton Hu MD Active ELMIRON 100 MG CAPS 2 tablets in the am and 1 tablet at hs 04/24 PENTOSAN POLYSULFATE SODIUM 95926498518 No Longer Active Carlton loera MD Active MUCINEX D 60-600 MG [id number] 1 tab po q am PSEUDOEPHEDRINE-GUAIFENESIN 53769266661 No Longer Active Carlton Hu MD Active MUCINEX DM MAXIMUM STRENGTH 60-1200 MG [id number] 1 tab po q am DEXTROMETHORPHAN-GUAIFENESIN 55198432452 No Longer Active Da raimundo Hu MD Active TUSSIONEX PENNKINETIC ER 10-8 MG/5ML LQCR 5ml po q12hr PRN Cough HYDROCOD POLST-CHLORPHEN POLST 70081363029 No Longer Active Carlton Hu MD Active POTASSIUM CHLORIDE ER 20 MEQ ORAL CR-TABS Take 1 by mo uth 4 times daily for 7 days POTASSIUM CHLORIDE 39695015824 No Longer Active Carlton Hu MD Active ZITHROMAX 250 MG TAB 2 po today, then 1 po q days 2-5 AZITHROMYCIN 07801224641 No Longer Active Elise Whitmore APRN Acti ve TUSSIONEX PENNKINETIC ER 10-8 MG/5ML LQCR 5 ml twice a day a s needed for cough HYDROCOD POLST-CHLORPHEN POLST 08472676230 N o Longer Active Elise Whitmore APRN Active MONTELUKAST SODIUM 10 MG ORAL TABS 1 po daily for Allergy 6 MONTELUKAST SODIUM 79978408057 Active Carlton Hu MD Ac tive TUSSIONEX PENNKINETIC ER 10-8 MG/5ML LQCR 5ml po q12hr PRN Cough HYDROCOD POLST-CHLORPHEN POLST 31857660322 No Longer Active Hugo Restrepo MD Active GABAPENTIN 100 MG CAPS 1 po BID for fibromyalgia GABAPENTIN 53144936364 Active Elise Whitmore APRN Active LYRICA 100 MG CAPS Take 1 tab po BID for fibromyalgia PREGABALIN 86474580775 No Longer Active Elise Whitmore APRN Acti ve PROAIR HFA 108 (90 BASE) MCG/ACT AERS 2 puffs four times a d ay as needed ALBUTEROL SULFATE 05176842088 Active Elise Whitmore APRN Active PREDNISONE 20 MG TAB 2 tabs daily for 3 days, 1 t ab daily for 3 days, 1/2 tab daily for 2 days PREDNISONE 92421246112 No Longer Active Jillina Frakerriel FLEET DIRECTOR Active TUSSIONEX PENNKINETIC ER 10-8 MG/5ML ORAL LQCR 5 mL PO q 12 hrs PRN cough HYDROCOD POLST-CHLORPHEN POLST 20402348503 No Longer Active Jillina Frakerriel FLEET DIRECTOR Active FLUTICASONE PROPIONATE 50 MCG/ACT SUSP 2 sprays each n ostril daily until bottle is empty FLUTICASONE PROPIONATE 85995356347 No Longer Ac tive Jillina Frazell FLEET DIRECTOR Active ASMANEX 60 METERED DOSES 220 MCG/INH AEPB 1 puff bid with ri nse after MOMETASONE FUROATE 25778330173 No Longer Active eVnullina Darlin meneses FLEET DIRECTOR Active ZITHROMAX Z-REYNA 250 MG TABS 2 today, then 1 daily for 4 days 201 09/29/14 AZITHROMYCIN 34644877527 No Longer Active Elise Whitmore APRN Active TUSSIONEX PENNKINETIC ER 10-8 MG/5ML LQCR 5ml po q12hr PRN Cough HYDROCOD POLST-CHLORPHEN POLST 68872818226 No Longer Active Elise Whitmore APRN Active PREDNISONE 20 MG TAB 2 tabs daily for 3 days, 1 t ab daily for 3 days, 1/2 tab daily for 2 days PREDNISONE 98814761954 No Longer Active Jillina Cesarl FLEET DIRECTOR Active AMOXICILLIN 500 MG CAPS 2 po BID x 10 days AMOX ICILLIN 70678188865 No Longer Active Jillina Frazell FLEET DIRECTOR Active SINGULAIR 10 MG TABS 1 po qday for allergies 2 MONTELUKAST SODIUM 06006874446 No Longer Active Carlton Hu MD Acti ve LEVAQUIN 500 MG TAB 1 tablet by mouth daily LEV OFLOXACIN 63970496634 No Longer Active Carlton Hu MD Active FLUTICASONE PROPIONATE 50 MCG/ACT SUSP 2 sprays each n ostril daily for 2 weeks, then 1 spray each nostril daily. FLUTICASONE PRO PIONATE 46029212095 Active Elise Whitmore APRN Active ZITHROMAX 250 MG TAB 2 po today, then 1 po q days 2-5 AZITHROMYCIN 35734805202 No Longer Active Elise Whitmore APRN Acti ve XANAX 0.5 MG TABS one tablet by mouth daily prn anxiety ALPRAZOLAM 15478447607 Active Carlton Hu MD Active CYMBALTA 30 MG CPEP 1 cap by mouth daily for depression DULOXETINE HCL 61660571452 Active Carlton Hu MD Active CEFDINIR 300 MG CAPS 1 po BID x 10 days CEFDINI R 79286671790 No Longer Active Carlton Hu MD Active ZOCOR 40 MG TAB 1 tab by mouth daily SIMVASTATI N 42964761721 No Longer Active Carlton Hu MD Active CYCLOBENZAPRINE HCL 10 MG TABS 1 tablet by mouth BID prn had cherelle n CYCLOBENZAPRINE HCL 33110021788 No Longer Active Carlton Hu MD Active LEVOFLOXACIN 500 MG ORAL TABS 1 tab PO daily x 10 days LEVOFLOXACIN 46513200421 No Longer Active Carlton Hu MD Acti ve PREDNISONE 20 MG ORAL TABS 3 tab PO qd x 2d, 2 tab PO qd x 2d, 1 tab PO qd x 2d, 1/2 tab PO qd x 2d PREDNISONE 45858369189 No Longer Active Carlton Hu MD Active FLUTICASONE PROPIONATE 50 MCG/ACT SUSP 1 to 2 sprays each no stril daily FLUTICASONE PROPIONATE 38062776589 No Longer Active T jaz HERNANDEZ Active CHERATUSSIN AC 100-10 MG/5ML SYRP 1 tsp by mouth every 4 hours as needed for cough GUAIFENESIN-CODEINE 54910941657 No Longer Activ e Blaine HERNANDEZ Active PROMETHAZINE-CODEINE 6.25-10 MG/5ML SYRP 1 tsp by mout h every 6 hours if needed for cough PROMETHAZINE-CODEINE 16096486298 No Long er Active Blaine HERNANDEZ Active CHERATUSSIN AC 100-10 MG/5ML SYRP 1 tsp by mouth every 4 hours as needed for cough GUAIFENESIN-CODEINE 05189860451 No Longer Activ e Blaine HERNANDEZ Active ZITHROMAX Z-REYNA 250 MG TABS 2 today, then 1 daily for 4 days 201 08/30/03 AZITHROMYCIN 24872405324 No Longer Active Columba Raida Act nael ZITHROMAX 250 MG TAB 2 po today, then 1 po q days 2-5 AZITHROMYCIN 01054359856 No Longer Active Carlton Hu MD Acti ve ZITHROMAX Z-REYNA 250 MG TABS 2 today, then 1 daily for 4 days 201 08/07/20 AZITHROMYCIN 08884236255 No Longer Active Columba Raida Act nael AUGMENTIN 875-125 MG TAB 1 po BID x 10 days AMOXICILLIN- POT CLAVULANATE 21417740557 No Longer Active Diya De Guzman APRN Active ZITHROMAX 250 MG TAB 2 po today, then 1 po q days 2-5 AZITHROMYCIN 18595996662 No Longer Active Carlton Hu MD Acti ve TRAMADOL HCL 50 MG TABS 1 po tid with ES Tylenol TRAMADOL HCL 41560082834 Active Carlton Hu MD Active PREMARIN 0.625 MG TABS TAKE 1 TAB BY MOUTH DAILY 07/25 ESTROGENS CONJUGATED 99016077198 No Longer Active Ridge Bess DO Active CYMBALTA 30 MG CPEP 1 cap by mouth daily DULOXE SNEHA HCL 08192567437 No Longer Active Ridge Bess DO Active AMOXICILLIN 500 MG CAP 1 tab by mouth 3 times daily x 10 days 20 14/04/28 AMOXICILLIN 35163082916 No Longer Active Carlton Hu MD Active AMOXICILLIN 500 MG CAP 1 tab by mouth 3 times daily x 10 days 20 13/03/08 AMOXICILLIN 49970457212 No Longer Active Carlton Hu MD Active PROMETHAZINE-CODEINE 6.25-10 MG/5ML SYRP 1 tsp by mouth ever y 8 hours prn cough PROMETHAZINE-CODEINE 34841892745 No Longer Active Robert Hu MD Active MEDROL (REYNA) 4 MG TABS 6 pills x 1 day, then 5 pill s x 1 day then 4 pills x 1 day, then 3 pills x 1 day, then 2 pills x 1 day, then 1 pill x 1 day, then stop METHYLPREDNISOLONE 27520600785 No Longer Active Parris Mora MD Active AZITHROMYCIN 250 MG TABS 2 po qd x 1 day, then 1 po qd x 4 days AZITHROMYCIN 88381344837 No Longer Active Perez Mora MD Active SYMBICORT 160-4.5 MCG/ACT AERO 2 puffs bid with rinse after 2011 BUDESONIDE-FORMOTEROL FUMARATE 84594684577 No Longer Active Perez Mora MD Active LYRICA 75 MG CAPS TAKE 1 CAPSULE BY MOUTH TWICE DAILY 2013 PREGABALIN 50610521767 No Longer Active Carlton Hu MD Active TOPAMAX 25 MG TABS 1 qHS x 1 week, then 1 BID x 1 week, then 1 qAM and 2 qHS x 1 week, then 2 BID (migraine prevention) TOPIRAMAT E 23621021893 No Longer Active Jerica Osei ALFREDO Active TOPAMAX 50 MG TABS take 1 tab po BID for migraines. 12/07/10 TOPIRAMATE 00121437142 No Longer Active Jerica Osei RMA Ac tive TOPAMAX 100 MG TABS Take 1 tablet po bid TOPIRAMATE 4999 3317113 Active Carlton Hu MD Active TRIAMCINOLONE ACETONIDE 0.1 % CREA apply three times daily prn r beatrice TRIAMCINOLONE ACETONIDE 12517547381 No Longer Active Carlton Hu MD Active PAXIL 40 MG TAB take 1 tab po qday for depression PAROXETINE HCL 78734516018 Active Carlton Hu MD Active CHERATUSSIN AC 100-10 MG/5ML SYRP 5ml po q6hr PRN Cough GUAIFENESIN-CODEINE 04880328333 No Longer Active Carlton Hu MD Active MEDROL (REYNA) 4 MG TABS 6 tabs on day 1, 5 tabs on d ay 2, 4 tabs on day 3, 3 tabs on day 4, 2 tabs on day 5, 1 tab on day 6 METHYLPREDNISOLONE 67482933228 No Longer Active Perez Mora MD Active AZITHROMYCIN 250 MG TABS 2 po qd x 1 day, then 1 po qd x 4 days AZITHROMYCIN 53411123842 No Longer Active Perez Mora MD Active PROPRANOLOL HCL 60 MG TABS 1 PO Q D PROPRANOL OL HCL 29268938352 No Longer Active Perez Mora MD Active CHERATUSSIN AC 100-10 MG/5ML SYRP take one tsp po Q 6hours prn c ough GUAIFENESIN-CODEINE 68636245842 No Longer Active Perez Means Active AUGMENTIN 875-125 MG TAB 1 tab by mouth twice daily with food 20 12/03/31 AMOXICILLIN-POT CLAVULANATE 47301734904 No Longer Active Chanel Mora MD Active CHERATUSSIN AC 100-10 MG/5ML SYRP 1 tsp by mouth every 4 hours as needed for cough GUAIFENESIN-CODEINE 98207900217 No Longer Activ e Hugo Restrepo MD Active ACETAMINOPHEN-CODEINE #3 300-30 MG TABS 1 PO Q 4-6 HRS PRN PAIN ACETAMINOPHEN-CODEINE 41863649808 No Longer Active Hugo Restrepo MD Active LEVAQUIN 500 MG TABS take one po QD LEVOFLOXACI N 67310668166 No Longer Active Griffin HERNANDEZ Active PREDNISONE 20 MG TAB Take 3 tabs daily for 3 days , 2 tabs daily for 3 days, 1 tab daily for 3 days, 1/2 tab daily for 3 days P REDNISONE 67248484737 No Longer Active Carlton Hu MD Active AVELOX 400 MG TABS 1 tab by mouth daily MOXIFLO XACIN HCL 45656083776 No Longer Active Carlton Hu MD Active CHERATUSSIN AC 100-10 MG/5ML SYRP 1 tsp by mouth every 4 hours as needed for cough GUAIFENESIN-CODEINE 03609808805 No Longer Activ e Hugo Restrepo MD Active AVELOX 400 MG TABS 1 tab by mouth daily MOXIFLO XACIN HCL 62579343489 No Longer Active Marcy De La Rosa MD PhD Active TERBINAFINE HCL 250 MG TABS 1 qDay TERBINAF INE HCL 65751656427 No Longer Active Marcy De La Rosa MD PhD Active CHERATUSSIN AC 100-10 MG/5ML SYRP 1 tsp by mouth every 4 hours as needed for cough GUAIFENESIN-CODEINE 28613364042 No Longer Activ e Marcy De La Rosa MD PhD Active AVELOX 400 MG TABS 1 tab by mouth daily MOXIFLO XACIN HCL 49858641839 No Longer Active Marcy De La Rosa MD PhD Active HYDROCODONE-ACETAMINOPHEN 5-325 MG TABS 1 po q 6hr PRN cough 201 05/09/16 HYDROCODONE-ACETAMINOPHEN 99941522488 No Longer Active Marcy De La Rosa MD PhD Active PREDNISONE 20 MG TAB 2 tabs daily for 3 days, 1 t ab daily for 3 days, 1/2 tab daily for 2 days PREDNISONE 88512213042 No Longer Active Carlton Hu MD Active CEFDINIR 300 MG CAPS by mouth twice a day CEFDI ODILIA 79438347943 No Longer Active Carlton Hu MD Active HYDROCHLOROTHIAZIDE 25 MG TABS 1 TAB PO DAILY H YDROCHLOROTHIAZIDE 06679757036 Active Carlton Hu MD Active ACETAMINOPHEN-CODEINE #3 300-30 MG TABS 1 tablet po q 4-6hrs prn pain ACETAMINOPHEN-CODEINE 68473815355 No Longer Active Ridge Bess DO Active ZITHROMAX 250 MG TAB 2 po today, then 1 po q days 2-5 AZITHROMYCIN 70473491764 No Longer Active Carlton Hu MD Acti ve CHERATUSSIN AC 100-10 MG/5ML SYRP take 1 tsp po q4-6 hours prn c ough GUAIFENESIN-CODEINE 63629839240 No Longer Active Carlton Hu MD Active ACETAMINOPHEN-CODEINE #3 300-30 MG TABS 1 PO Q 4-6 HR PRN PAIN 2 ACETAMINOPHEN-CODEINE 53513552699 No Longer Active Carlton rich MD Active LORTAB 7.5-500 MG/15ML ELIX 7.5 ml po q 4 hour prn cough HYDROCODONE-ACETAMINOPHEN 11113102344 No Longer Active Carlton Hu MD Active PREDNISONE 20 MG TAB 1 po bid 3 days, then 1 po q day 3 days 201 05/03/07 PREDNISONE 74852613728 No Longer Active Carlton Hu MD Active CEFDINIR 300 MG CAPS by mouth twice a day CEFDI ODILIA 57706179268 No Longer Active Carlton Hu MD Active CEFDINIR 300 MG CAPS by mouth twice a day CEFDI ODILIA 60961148563 No Longer Active Carlton Hu MD Active CEFDINIR 300 MG CAPS by mouth twice a day CEFDI ODILIA 32161860295 No Longer Active Carlton Hu MD Active TESSALON PERLES 100 MG CAP 1 tablet by mouth 3 times daily a s needed for cough BENZONATATE 85550425035 No Longer Active Carlton bustamante MD Active CEFDINIR 300 MG CAPS by mouth twice a day CEFDI ODILIA 18478815869 No Longer Active Carlton Hu MD Active ZITHROMAX Z-REYNA 250 MG TABS 2 today, then 1 daily for 4 days 201 04/09/17 AZITHROMYCIN 57955068445 No Longer Active Hugo Restrepo MD Active AMOXICILLIN 500 MG CAP 1 tab by mouth 3 times daily x 10 days 20 13/03/08 AMOXICILLIN 500 MG CAP 015461 AMOXICILLIN Inactive AMOXICILLIN 500 MG CAP 1 tab by mouth 3 times daily x 10 days 20 14/04/28 AMOXICILLIN 500 MG CAP 016175 AMOXICILLIN Inactive AMOXICILLIN 500 MG CAPS 2 po BID x 10 days AMOXICILLIN 500 MG CAPS 717660 AMOXICILLIN Inactive CHERATUSSIN AC 100-10 MG/5ML SYRP 5ml po q6hr PRN Cough CHERATUSSIN AC 100-10 MG/5ML SYRP 168354 GUAIFENESIN-CODEINE Inacti ve CHERATUSSIN AC 100-10 MG/5ML SYRP take 1 tsp po q4-6 hours prn c ough CHERATUSSIN AC 100-10 MG/5ML SYRP 862899 GUAIFENESIN-CO DEINE Inactive CHERATUSSIN AC 100-10 MG/5ML SYRP 1 tsp by mouth every 4 hours as needed for cough CHERATUSSIN AC 100-10 MG/5ML SYRP 240141 GUAIFENESIN-CODEINE Inactive CHERATUSSIN AC 100-10 MG/5ML SYRP 1 tsp by mouth every 4 hours as needed for cough CHERATUSSIN AC 100-10 MG/5ML SYRP 611587 GUAIFENESIN-CODEINE Inactive CHERATUSSIN AC 100-10 MG/5ML SYRP 1 tsp by mouth every 4 hours as needed for cough CHERATUSSIN AC 100-10 MG/5ML SYRP 239708 GUAIFENESIN-CODEINE Inactive CHERATUSSIN AC 100-10 MG/5ML SYRP take one tsp po Q 6hours prn c ough CHERATUSSIN AC 100-10 MG/5ML SYRP 537557 GUAIFENESIN-CO DEINE Inactive CHERATUSSIN AC 100-10 MG/5ML SYRP 1 tsp by mouth every 4 hours as needed for cough CHERATUSSIN AC 100-10 MG/5ML SYRP 904086 GUAIFENESIN-CODEINE Inactive CHERATUSSIN AC 100-10 MG/5ML SYRP 1 tsp by mouth every 4 hours as needed for cough CHERATUSSIN AC 100-10 MG/5ML SYRP 073732 GUAIFENESIN-CODEINE Inactive CYCLOBENZAPRINE HCL 10 MG TABS 1 tablet by mouth BID prn had cherelle n CYCLOBENZAPRINE HCL 10 MG TABS 995857 CYCLOBENZAPRINE H CL Inactive PREDNISONE 20 MG ORAL TABS 3 tab PO qd x 2d, 2 tab PO qd x 2d, 1 tab PO qd x 2d, 1/2 tab PO qd x 2d PREDNISONE 20 MG ORAL TABS 911642 PREDNISONE Inactive PREDNISONE 20 MG TAB 1 po bid 3 days, then 1 po q day 3 days 201 05/03/07 PREDNISONE 20 MG TAB 909503 PREDNISONE Inactive PREDNISONE 20 MG TAB Take 3 tabs daily for 3 days , 2 tabs daily for 3 days, 1 tab daily for 3 days, 1/2 tab daily for 3 days PREDNISONE 20 MG TAB 014600 PREDNISONE Inactive PREDNISONE 20 MG TAB 2 tabs daily for 3 days, 1 t ab daily for 3 days, 1/2 tab daily for 2 days PREDNISONE 20 MG TAB 770084 PREDNISON E Inactive PREDNISONE 20 MG TAB 2 tabs daily for 3 days, 1 t ab daily for 3 days, 1/2 tab daily for 2 days PREDNISONE 20 MG TAB 318143 PREDNISON E Inactive PREDNISONE 20 MG TAB 2 tabs daily for 3 days, 1 t ab daily for 3 days, 1/2 tab daily for 2 days PREDNISONE 20 MG TAB 045169 PREDNISON E Inactive PREMARIN 0.625 MG TABS TAKE 1 TAB BY MOUTH DAILY 07/25 PREMARIN 0.625 MG TABS ESTROGENS CONJUGATED Inactive PROMETHAZINE-CODEINE 6.25-10 MG/5ML SYRP 1 tsp by mouth ever y 8 hours prn cough PROMETHAZINE-CODEINE 6.25-10 MG/5ML SYRP 173751 PROMETHAZINE-CODEINE Inactive PROMETHAZINE-CODEINE 6.25-10 MG/5ML SYRP 1 tsp by mout h every 6 hours if needed for cough PROMETHAZINE-CODEINE 6.25-10 MG/5ML SYRP 704014 PROMETHAZINE-CODEINE Inactive PROPRANOLOL HCL 60 MG TABS 1 PO Q D P ROPRANOLOL HCL 60 MG TABS 150045 PROPRANOLOL HCL Inactive TRIAMCINOLONE ACETONIDE 0.1 % CREA apply three times daily prn r beatrice TRIAMCINOLONE ACETONIDE 0.1 % CREA 1840278 TRIAMCINOLONE ACETONIDE Inactive ZOCOR 40 MG TAB 1 tab by mouth daily ZOCOR 40 M G TAB 666903 SIMVASTATIN Inactive TESSALON PERLES 100 MG CAP 1 tablet by mouth 3 times daily a s needed for cough TESSALON PERLES 100 MG CAP 443968 BENZONATATE I nactive TERBINAFINE HCL 250 MG TABS 1 qDay TERBINAFINE HCL 250 MG TABS 835854 TERBINAFINE HCL Inactive ACETAMINOPHEN-CODEINE #3 300-30 MG TABS 1 tablet po q 4-6hrs prn pain ACETAMINOPHEN-CODEINE #3 300-30 MG TABS ACETAMIN OPHEN-CODEINE Inactive ACETAMINOPHEN-CODEINE #3 300-30 MG TABS 1 PO Q 4-6 HR PRN PAIN 2 ACETAMINOPHEN-CODEINE #3 300-30 MG TABS ACETAMIN OPHEN-CODEINE Inactive ACETAMINOPHEN-CODEINE #3 300-30 MG TABS 1 PO Q 4-6 HRS PRN PAIN ACETAMINOPHEN-CODEINE #3 300-30 MG TABS ACETAMINOPHEN-CODEIN E Inactive AUGMENTIN 875-125 MG TAB 1 tab by mouth twice daily with food 20 12/03/31 AUGMENTIN 875-125 MG TAB 906193 AMOXICILLIN-POT CLAVULA EFE Inactive AUGMENTIN 875-125 MG TAB 1 po BID x 10 days AUGMENTIN 875- 125 MG TAB 800718 AMOXICILLIN-POT CLAVULANATE Inactive ELMIRON 100 MG CAPS 2 tablets in the am and 1 tablet at hs 04/24 ELMIRON 100 MG CAPS PENTOSAN POLYSULFATE SODIUM Inactive LEVAQUIN 500 MG TABS take one po QD LEVAQUIN 50 0 MG TABS 19971102 LEVOFLOXACIN Inactive LEVAQUIN 500 MG TAB 1 tablet by mouth daily LEVAQUIN 500 MG TAB 19971102 LEVOFLOXACIN Inactive TOPAMAX 25 MG TABS 1 qHS x 1 week, then 1 BID x 1 week, then 1 qAM and 2 qHS x 1 week, then 2 BID (migraine prevention) TOPAMAX 2 5 MG TABS 19971105 TOPIRAMATE Inactive LEVOFLOXACIN 500 MG ORAL TABS 1 tab PO daily x 10 days LEVOFLOXACIN 500 MG ORAL TABS 824152 LEVOFLOXACIN Inactive ZITHROMAX 250 MG TAB 2 po today, then 1 po q days 2-5 ZITHROMAX 250 MG TAB 690310 AZITHROMYCIN Inactive ZITHROMAX 250 MG TAB 2 po today, then 1 po q days 2-5 ZITHROMAX 250 MG TAB 992725 AZITHROMYCIN Inactive ZITHROMAX 250 MG TAB 2 po today, then 1 po q days 2-5 ZITHROMAX 250 MG TAB 398149 AZITHROMYCIN Inactive ZITHROMAX 250 MG TAB 2 po today, then 1 po q days 2-5 ZITHROMAX 250 MG TAB 029913 AZITHROMYCIN Inactive ZITHROMAX 250 MG TAB 2 po today, then 1 po q days 2-5 ZITHROMAX 250 MG TAB 274217 AZITHROMYCIN Inactive AZITHROMYCIN 250 MG TABS 2 po qd x 1 day, then 1 po qd x 4 days AZITHROMYCIN 250 MG TABS 708821 AZITHROMYCIN Inactiv e AZITHROMYCIN 250 MG TABS 2 po qd x 1 day, then 1 po qd x 4 days AZITHROMYCIN 250 MG TABS 699626 AZITHROMYCIN Inactiv e CEFDINIR 300 MG CAPS by mouth twice [...] 20020704 CEFDINIR Inactive CEFDINIR 300 MG CAPS 1 po BID x 10 days C EFDINIR 300 MG CAPS 20020704 CEFDINIR Inactive SINGULAIR 10 MG TABS 1 po qday for allergies 2 SINGULAIR 10 MG TABS 20010504 MONTELUKAST SODIUM Inactive AVELOX 400 MG TABS 1 tab by mouth daily A VELOX 400 MG TABS 929353 MOXIFLOXACIN HCL Inactive AVELOX 400 MG TABS 1 tab by mouth daily A VELOX 400 MG TABS 024231 MOXIFLOXACIN HCL Inactive AVELOX 400 MG TABS 1 tab by mouth daily A VELOX 400 MG TABS 717760 MOXIFLOXACIN HCL Inactive ZITHROMAX Z-REYNA 250 MG TABS 2 today, then 1 daily for 4 days 201 08/30/03 ZITHROMAX Z-REYNA 250 MG TABS 422166 AZITHROMYCIN Inac tive ZITHROMAX Z-REYNA 250 MG TABS 2 today, then 1 daily for 4 days 201 08/07/20 ZITHROMAX Z-REYNA 250 MG TABS 500379 AZITHROMYCIN Inac tive ZITHROMAX Z-REYNA 250 MG TABS 2 today, then 1 daily for 4 days 201 04/09/17 ZITHROMAX Z-REYNA 250 MG TABS 714434 AZITHROMYCIN Inac tive ZITHROMAX Z-REYNA 250 MG TABS 2 today, then 1 daily for 4 days 201 09/29/14 ZITHROMAX Z-REYNA 250 MG TABS 650126 AZITHROMYCIN Inac tive HYDROCODONE-ACETAMINOPHEN 5-325 MG TABS 1 po q 6hr PRN cough 201 05/09/16 HYDROCODONE-ACETAMINOPHEN 5-325 MG TABS 823472 HYDROCODONE-ACETAMINOPHEN Inactive TOPAMAX 50 MG TABS take 1 tab po BID for migraines. 20 12/07/10 TOPAMAX 50 MG TABS 484008 TOPIRAMATE Inactive LORTAB 7.5-500 MG/15ML ELIX 7.5 ml po q 4 hour prn cough LORTAB 7.5-500 MG/15ML ELIX 7709626 HYDROCODONE-ACETAMINOPHEN Inacti ve CYMBALTA 30 MG CPEP 1 cap by mouth daily CYMBALTA 30 MG CPEP 108443 DULOXETINE HCL Inactive ASMANEX 60 METERED DOSES 220 MCG/INH AEPB 1 puff bid with ri nse after ASMANEX 60 METERED DOSES 220 MCG/INH AEPB MOMETASONE FUROATE Inactive LYRICA 75 MG CAPS TAKE 1 CAPSULE BY MOUTH TWICE DAILY LYRICA 75 MG CAPS PREGABALIN Inactive LYRICA 100 MG CAPS Take 1 tab po BID for fibromyalgia LYRICA 100 MG CAPS PREGABALIN Inactive MUCINEX D 60-600 MG [id number] 1 tab po q am MUCINEX D 60- 600 MG [id number] PSEUDOEPHEDRINE-GUAIFENESIN Inactive FLUTICASONE PROPIONATE 50 MCG/ACT SUSP 2 sprays each n ostril daily until bottle is empty FLUTICASONE PROPIONATE 50 MCG/ACT SUSP 17 52261 FLUTICASONE PROPIONATE Inactive FLUTICASONE PROPIONATE 50 MCG/ACT SUSP 1 to 2 sprays each no stril daily FLUTICASONE PROPIONATE 50 MCG/ACT SUSP 1984097 FLUTICASONE PROPIONATE Inactive SYMBICORT 160-4.5 MCG/ACT AERO 2 puffs bid with rinse after 2011 SYMBICORT 160-4.5 MCG/ACT AERO BUDESONIDE-FORMOT SÁNCHEZ FUMARATE Inactive MUCINEX DM MAXIMUM STRENGTH 60-1200 MG [id number] 1 tab po q am MUCINEX DM MAXIMUM STRENGTH 60-1200 MG [id number] DEXTROMETHORPHAN-GUAIFENESIN Inactive POTASSIUM CHLORIDE ER 20 MEQ ORAL CR-TABS Take 1 by mo uth 4 times daily for 7 days POTASSIUM CHLORIDE ER 20 MEQ ORAL CR-TABS POTASSIUM CHLORIDE Inactive MEDROL (REYNA) 4 MG TABS 6 pills x 1 day, then 5 pill s x 1 day then 4 pills x 1 day, then 3 pills x 1 day, then 2 pills x 1 day, then 1 pill x 1 day, then stop MEDROL (REYNA) 4 MG TABS 482546 METHYLPREDNISOLONE Inactive MEDROL (REYNA) 4 MG TABS 6 tabs on day 1, 5 tabs on d ay 2, 4 tabs on day 3, 3 tabs on day 4, 2 tabs on day 5, 1 tab on day 6 MEDROL (REYNA) 4 MG TABS 251560 METHYLPREDNISOLONE Inactive TUSSIONEX PENNKINETIC ER 10-8 MG/5ML LQCR 5ml po q12hr PRN Cough TUSSIONEX PENNKINETIC ER 10-8 MG/5ML LQCR HYDROCOD POLST-CHLORPHEN POLST Inactive TUSSIONEX PENNKINETIC ER 10-8 MG/5ML ORAL LQCR 5 mL PO q 12 hrs PRN cough TUSSIONEX PENNKINETIC ER 10-8 MG/5ML ORAL LQCR HYDROCOD POLST-CHLORPHEN POLST Inactive TUSSIONEX PENNKINETIC ER 10-8 MG/5ML LQCR 5ml po q12hr PRN Cough TUSSIONEX PENNKINETIC ER 10-8 MG/5ML LQCR HYDROCOD POLST-CHLORPHEN POLST Inactive TUSSIONEX PENNKINETIC ER 10-8 MG/5ML LQCR 5 ml twice a day a s needed for cough TUSSIONEX PENNKINETIC ER 10-8 MG/5ML LQCR HYDROCOD POLST-CHLORPHEN POLST Inactive TUSSIONEX PENNKINETIC ER 10-8 MG/5ML LQCR 5ml po q12hr PRN Cough TUSSIONEX PENNKINETIC ER 10-8 MG/5ML LQCR HYDROCOD POLST-CHLORPHEN POLST Inactive Vital Signs Date Name Value Unit [...] Metabolic Panel - Chem istry sodium, serum 132 mmol/L 706-626 5209/07/12 potassium, serum 2.7 mmol/L 3.5-5.2 chloride, serum 93 mmol/L 98-107 carbon dioxide, venous blood 30.8 mmol/L 21.0-32 .0 blood glucose 107 mg/dL 65-110 calcium, serum 9.3 mg/dL 8.5-10.1 urea nitrogen, blood 12 mg/dL 7-18 creatinine, serum 1.00 mg/dL 0.60-1.30 sodium, serum 142 mmol/L 401-017 2416/07/17 potassium, serum 4.2 mmol/L 3.5-5.2 chloride, serum 106 mmol/L 98-107 carbon dioxide, venous blood 29.9 mmol/L 21.0-32 .0 blood glucose 108 mg/dL 65-110 calcium, serum 9.1 mg/dL 8.5-10.1 urea nitrogen, blood 11 mg/dL 7-18 creatinine, serum 0.81 mg/dL 0.60-1.30 Lab Report: Rapid Strep - Lab Microbial identification kit, rapid strep method Negative Negative Encounters Code Encounter Date Provider Facility [id number] Level 3 Est. Patient 13:35:41 MANAGER [employer] Carlton rich MD [facility] CPT-27950 Level 3 Est. Patient 10:03:52 MANAGER [employer] Carlton rich MD [facility] CPT-96338 Level 3 Est. Patient 12:17:50 CDT Hugo Restrepo MD [facility] CPT-31769 Level 3 Est. Patient 13:42:38 CDT Italo KHAN [facility] CPT-84829 Level 3 Est. Patient 13:23:51 CDT [facility] CPT-06123 Level 3 Est. Patient 14:22:19 MANAGER [employer] Diya [facility] CPT-87760 Level 3 Est. Patient 10:11:46 CDT Carlton rich MD [facility] CPT-43907 Level 3 Est. Patient 17:29:43 CDT [facility] CPT-61742 Level 3 Est. Patient 11:58:06 CDT [facility] CPT-07435 Level 4 Est. Patient 14:36:51 CDT Carlton rich MD [facility] [facility]-34586 Level 3 Est. Patient 18:16:00 MANAGER FEDERAL Blaine Freeman [facility] CPT-77502 Level 3 Est. Patient 09:45:49 MANAGER FEDERAL Carlton rich MD [facility] CPT-07328 Level 3 Est. Patient 13:19:20 CDT Carlton rihc MD [facility] CPT-90425 Level 3 Est. Patient 13:06:43 CDT Ridge tam DO [facility] CPT-39544 Level 3 Est. Patient 10:03:07 CDT Perez Mora MD [facility] CPT-69537 Level 3 Est. Patient 19:50:35 MANAGER FEDERAL Carlton rich MD [facility] CPT-19196 Level 4 Est. Patient 18:05:01 MANAGER FEDERAL Carlton rich MD [facility]-86603 Level 3 Est. Patient 10:45:55 MANAGER FEDERAL Hugo Restrepo MD [facility] CPT-76272 Level 3 Est. Patient 14:12:49 CDT Griffin lincoln PA [facility] CPT-80908 Level 3 Est. Patient 17:37:24 CDT Carlton rich MD [facility] CPT-72971 Level 3 Est. Patient 16:51:54 CDT Carlton rich MD [facility] CPT-83374 Level 3 Est. Patient 12:18:11 CDT Hugo Restrepo MD [facility] CPT-31917 Level 3 Est. Patient 11:30:25 CDT Marcy crisostomo MD PhD [facility] CPT-92560 Level 3 Est. Patient 12:00:47 MANAGER FEDERAL Carlton rich MD [facility] CPT-95999 Level 3 Est. Patient 16:31:06 MANAGER FEDERAL Carlton rich MD [facility] CPT-23978 Level 3 Est. Patient 16:23:24 MANAGER FEDERAL Ridge tam [facility] CPT-31473 Level 3 Est. Patient 12:34:12 CDT Carlton rich MD [facility] CPT-56934 Level 2 Est. Patient 15:43:33 CDT Robi armstrong MD [facility] CPT-84244 Level 4 Est. Patient 14:04:44 CDT Carlton rich MD [facility] CPT-88847 Level 3 Est. Patient 05:47:59 CDT Ridge tam [facility] CPT-55042 Level 3 Est. Patient 13:12:53 MANAGER FEDERAL Carlton rich MD [facility] CPT-48500 Level 3 Est. Patient 14:26:53 CDT Hugo Restrepo MD [facility] Procedures Code Procedure Name Date Entry Date Standard Desc ription CPT-J1040 Depo Medrol 80 mg (Methyl Prednisolone A cetate) 10:42:44 CDT CPT-J1100 Decadron 8mg (Dexamethasone) 10:42:44 CDT 2 CPT-J0696 Rocephin 1gm Inj Solr 14:32:13 CDT CPT-J1020 Depo Medrol 60 mg (Methyl Prednisolone A cetate) 14:32:13 CDT CPT-J1100 Decadron 6mg (Dexamethasone) 14:32:13 CDT 2 CPT-78362 Hip bilat min 2V w AP pelvis 13:16:20 CDT 2 CPT-64420 Pelvis only 13:07:33 CDT CPT-19753 Spec Collection and Handling Fee 11:25:12 C DT CPT-95654 Fluzone Quadrivalent Intramuscular Suspe nsion 0.5 ML 14:31:55 CDT CPT-14983 Abx/Therapy Injection 13:28:47 MANAGER FEDERAL CPT-J2930 Solu Medrol 125 mg (Methyl Prednisolone Sodium Succinate) 12:00:47 MANAGER FEDERAL CPT-19860 Venipuncture Draw Fee 11:33:31 CDT CPT-75066 EKG Trac and Interp 11:21:09 CDT CPT-58512 Chest 2V Frontal and Lat 11:21:09 CDT 12/15 CPT-04472 Venipuncture Draw Fee 08:02:34 CDT CPT-27033 Chest 2V Frontal and Lat 05:47:59 CDT 06/05
--- OUTSIDE RECORDS SUMMARY | 2019-10-08 08:07 | XMS REPORT | Clinical Summary ---
Author Author Caitlin, Juliana Martinez Organization [employer] [facility] Address Unknown Phone Unavailable Allergies, Adverse Reactions, [...] Unspecified sinusitis (chronic) CONTACT DERMATITIS 692.9 Resolved Mracy Means PhD Contact dermatitis and other eczema, [...] sites Sinusitis 473.9 Active Diya De Guzman GENERAL ACTIVITIES THERAPIST Unspecified sinusitis (chronic) Bronchitis-Acute 466.0 Active Carlton Hu MD Acute bronchitis URI - acute 465.9 Active Elise Whitmore GENERAL ACTIVITIES THERAPIST Acute upper respiratory infections of unspecified site Pharyngitis acute 462 Active Elise Whitmore A PRN Acute pharyngitis Rhinitis, acute 460 Active Elise Whitmore APR N Acute nasopharyngitis [common cold] Sinusitis 473.9 Active Diya De Guzman GENERAL ACTIVITIES THERAPIST Unspecified sinusitis (chronic) Bronchitis 490 Active Diya De Guzman GENERAL ACTIVITIES THERAPIST Bronchitis, not specified as acute or chronic [...] Generic Name NDC Status Provider Patient Instruction GABAPENTIN 100 MG CAPS 1 po BID for fibromyalgia GABAPENTIN 72140328321 Active Elise Whitmore GENERAL ACTIVITIES THERAPIST Active LYRICA 100 MG CAPS Take 1 tab po BID for fibromyalgia PREGABALIN 91403382901 No Longer Active Elise Whitmore APRN Acti ve PROAIR HFA 108 (90 BASE) MCG/ACT AERS 2 puffs four times a d ay as needed ALBUTEROL SULFATE 18234793255 Active Jillina Gege APR N Active MUCINEX DM MAXIMUM STRENGTH 60-1200 MG [id number] 1 tab po q am 2016 DEXTROMETHORPHAN-GUAIFENESIN 89498514495 Active Jillina Frakerriel GENERAL ACTIVITIES THERAPIST Active TUSSIONEX PENNKINETIC ER 10-8 MG/5ML LQCR 5ml po q12hr PRN Cough 20 14/06/21 HYDROCOD POLST-CHLORPHEN POLST 99272970097 Active Carlton Hu MD Active PREDNISONE 20 MG TAB 2 tabs daily for 3 days, 1 t ab daily for 3 days, 1/2 tab daily for 2 days PREDNISONE 03769474840 No Longer Active Venullina Cesarl GENERAL ACTIVITIES THERAPIST Active TUSSIONEX PENNKINETIC ER 10-8 MG/5ML ORAL LQCR 5 mL PO q 12 hrs PRN cough HYDROCOD POLST-CHLORPHEN POLST 02673627339 No Longer Active Jillina Frazell GENERAL ACTIVITIES THERAPIST Active FLUTICASONE PROPIONATE 50 MCG/ACT SUSP 2 sprays each n ostril daily until bottle is empty FLUTICASONE PROPIONATE 73442079737 No Longer Ac tive Jillina Frazell GENERAL ACTIVITIES THERAPIST Active ASMANEX 60 METERED DOSES 220 MCG/INH AEPB 1 puff bid with ri nse after MOMETASONE FUROATE 98704514870 No Longer Active Jillina Darlin ell GENERAL ACTIVITIES THERAPIST Active ZITHROMAX Z-REYNA 250 MG TABS 2 today, then 1 daily for 4 days 201 09/29/14 AZITHROMYCIN 61536972656 No Longer Active Elise Whitmore APRN Active TUSSIONEX PENNKINETIC ER 10-8 MG/5ML LQCR 5ml po q12hr PRN Cough HYDROCOD POLST-CHLORPHEN POLST 59986195103 No Longer Active Elise Whitmore APRN Active MUCINEX D 60-600 MG [id number] 1 tab po q am PSEUDOEPHEDRINE-GUAIFENESIN 55765817130 Active Jillina Frazell GENERAL ACTIVITIES THERAPIST Active PREDNISONE 20 MG TAB 2 tabs daily for 3 days, 1 t ab daily for 3 days, 1/2 tab daily for 2 days PREDNISONE 08400310669 No Longer Active Jillina Frazell GENERAL ACTIVITIES THERAPIST Active AMOXICILLIN 500 MG CAPS 2 po BID x 10 days AMOX ICILLIN 07817732411 No Longer Active Jillina Frazell GENERAL ACTIVITIES THERAPIST Active SINGULAIR 10 MG TABS 1 po qday for allergies 2 MONTELUKAST SODIUM 95089596544 No Longer Active Carlton Hu MD Acti ve LEVAQUIN 500 MG TAB 1 tablet by mouth daily LEV OFLOXACIN 79539268890 No Longer Active Carlton Hu MD Active FLUTICASONE PROPIONATE 50 MCG/ACT SUSP 2 sprays each n ostril daily for 2 weeks, then 1 spray each nostril daily. FLUTICASONE PRO PIONATE 13749888505 Active Elise Whitmore APRN Active ZITHROMAX 250 MG TAB 2 po today, then 1 po q days 2-5 AZITHROMYCIN 09241416438 No Longer Active Elise Whitmore APRN Acti ve XANAX 0.5 MG TABS one tablet by mouth daily prn anxiety ALPRAZOLAM 33388034807 Active Elise Whitmore APRN Active CYMBALTA 30 MG CPEP 1 cap by mouth daily for depression DULOXETINE HCL 86572163771 Active Carlton Hu MD Active CEFDINIR 300 MG CAPS 1 po BID x 10 days CEFDINI R 20495901950 No Longer Active Carlton Hu MD Active ZOCOR 40 MG TAB 1 tab by mouth daily SIMVASTATI N 73060046729 No Longer Active Carlton Hu MD Active CYCLOBENZAPRINE HCL 10 MG TABS 1 tablet by mouth BID prn had cherelle n CYCLOBENZAPRINE HCL 79954280762 No Longer Active Carlton Hu MD Active LEVOFLOXACIN 500 MG ORAL TABS 1 tab PO daily x 10 days LEVOFLOXACIN 63128131900 No Longer Active Carlton Hu MD Acti ve PREDNISONE 20 MG ORAL TABS 3 tab PO qd x 2d, 2 tab PO qd x 2d, 1 tab PO qd x 2d, 1/2 tab PO qd x 2d PREDNISONE 95525453595 No Longer Active Carlton Hu MD Active FLUTICASONE PROPIONATE 50 MCG/ACT SUSP 1 to 2 sprays each no stril daily FLUTICASONE PROPIONATE 59513620988 No Longer Active T jaz HERNANDEZ Active CHERATUSSIN AC 100-10 MG/5ML SYRP 1 tsp by mouth every 4 hours as needed for cough GUAIFENESIN-CODEINE 11349294655 No Longer Activ e Blaine HERNANDEZ Active PROMETHAZINE-CODEINE 6.25-10 MG/5ML SYRP 1 tsp by mout h every 6 hours if needed for cough PROMETHAZINE-CODEINE 01229865392 No Long er Active Blaine HERNANDEZ Active CHERATUSSIN AC 100-10 MG/5ML SYRP 1 tsp by mouth every 4 hours as needed for cough GUAIFENESIN-CODEINE 84470006185 No Longer Activ e Blaine HERNANDEZ Active ZITHROMAX Z-REYNA 250 MG TABS 2 today, then 1 daily for 4 days 201 08/30/03 AZITHROMYCIN 26314863945 No Longer Active Columba Raida Act nael ZITHROMAX 250 MG TAB 2 po today, then 1 po q days 2-5 AZITHROMYCIN 69138752551 No Longer Active Carlton Hu MD Acti ve ZITHROMAX Z-REYNA 250 MG TABS 2 today, then 1 daily for 4 days 201 08/07/20 AZITHROMYCIN 35062838101 No Longer Active Columba Raida Act nael AUGMENTIN 875-125 MG TAB 1 po BID x 10 days AMOXICILLIN- POT CLAVULANATE 80018833550 No Longer Active Diya De Guzman APRN Active ZITHROMAX 250 MG TAB 2 po today, then 1 po q days 2-5 AZITHROMYCIN 62881890644 No Longer Active Carlton Hu MD Acti ve TRAMADOL HCL 50 MG TABS 1 po tid with ES Tylenol TRAMADOL HCL 78565297373 Active Carlton Hu MD Active PREMARIN 0.625 MG TABS TAKE 1 TAB BY MOUTH DAILY 07/25 ESTROGENS CONJUGATED 49424567473 No Longer Active Ridge Bess DO Active CYMBALTA 30 MG CPEP 1 cap by mouth daily DULOXE SNEHA HCL 53847228952 No Longer Active Ridge Bess DO Active AMOXICILLIN 500 MG CAP 1 tab by mouth 3 times daily x 10 days 20 14/04/28 AMOXICILLIN 10358945928 No Longer Active Carlton Hu MD Active AMOXICILLIN 500 MG CAP 1 tab by mouth 3 times daily x 10 days 20 13/03/08 AMOXICILLIN 46283657008 No Longer Active Carlton Hu MD Active PROMETHAZINE-CODEINE 6.25-10 MG/5ML SYRP 1 tsp by mouth ever y 8 hours prn cough PROMETHAZINE-CODEINE 07262639375 No Longer Active Robert Hu MD Active MEDROL (REYNA) 4 MG TABS 6 pills x 1 day, then 5 pill s x 1 day then 4 pills x 1 day, then 3 pills x 1 day, then 2 pills x 1 day, then 1 pill x 1 day, then stop METHYLPREDNISOLONE 16288167429 No Longer Active Parris Mora MD Active AZITHROMYCIN 250 MG TABS 2 po qd x 1 day, then 1 po qd x 4 days AZITHROMYCIN 11522304879 No Longer Active Perez Mora MD Active SYMBICORT 160-4.5 MCG/ACT AERO 2 puffs bid with rinse after 2011 BUDESONIDE-FORMOTEROL FUMARATE 90966221275 No Longer Active Perez Mora MD Active LYRICA 75 MG CAPS TAKE 1 CAPSULE BY MOUTH TWICE DAILY 2013 PREGABALIN 75168460424 No Longer Active Carlton Hu MD Active TOPAMAX 25 MG TABS 1 qHS x 1 week, then 1 BID x 1 week, then 1 qAM and 2 qHS x 1 week, then 2 BID (migraine prevention) TOPIRAMAT E 49310825847 No Longer Active Jerica FUENTES Active TOPAMAX 50 MG TABS take 1 tab po BID for migraines. 12/07/10 TOPIRAMATE 86630518291 No Longer Active Jerica AGUILARA Ac tive TOPAMAX 100 MG TABS Take 1 tablet po bid TOPIRAMATE 4999 0456312 Active Elise Whitmore APRN Active TRIAMCINOLONE ACETONIDE 0.1 % CREA apply three times daily prn r beatrice TRIAMCINOLONE ACETONIDE 63267101664 No Longer Active Carlton Hu MD Active PAXIL 40 MG TAB take 1 tab po qday for depression PAROXETINE HCL 15187131686 Active Elise Whitmore APRN Active CHERATUSSIN AC 100-10 MG/5ML SYRP 5ml po q6hr PRN Cough GUAIFENESIN-CODEINE 10889005065 No Longer Active Carlton Hu MD Active MEDROL (REYNA) 4 MG TABS 6 tabs on day 1, 5 tabs on d ay 2, 4 tabs on day 3, 3 tabs on day 4, 2 tabs on day 5, 1 tab on day 6 METHYLPREDNISOLONE 55183016345 No Longer Active Perez Mora MD Active AZITHROMYCIN 250 MG TABS 2 po qd x 1 day, then 1 po qd x 4 days AZITHROMYCIN 08193829936 No Longer Active Perez Mora MD Active PROPRANOLOL HCL 60 MG TABS 1 PO Q D PROPRANOL OL HCL 92825701484 No Longer Active Perez Mora MD Active CHERATUSSIN AC 100-10 MG/5ML SYRP take one tsp po Q 6hours prn c ough GUAIFENESIN-CODEINE 38931827277 No Longer Active Perez Means Active AUGMENTIN 875-125 MG TAB 1 tab by mouth twice daily with food 12/03/31 AMOXICILLIN-POT CLAVULANATE 98040155914 No Longer Active Chanel Mora MD Active CHERATUSSIN AC 100-10 MG/5ML SYRP 1 tsp by mouth every 4 hours as needed for cough GUAIFENESIN-CODEINE 34139680249 No Longer Activ e Hugo Restrepo MD Active ACETAMINOPHEN-CODEINE #3 300-30 MG TABS 1 PO Q 4-6 HRS PRN PAIN ACETAMINOPHEN-CODEINE 79771066560 No Longer Active Hugo Restrepo MD Active LEVAQUIN 500 MG TABS take one po QD LEVOFLOXACI N 42247765510 No Longer Active Griffin HERNANDEZ Active PREDNISONE 20 MG TAB Take 3 tabs daily for 3 days , 2 tabs daily for 3 days, 1 tab daily for 3 days, 1/2 tab daily for 3 days P REDNISONE 27400675764 No Longer Active Carlton Hu MD Active AVELOX 400 MG TABS 1 tab by mouth daily MOXIFLO XACIN HCL 33142665448 No Longer Active Carlton Hu MD Active CHERATUSSIN AC 100-10 MG/5ML SYRP 1 tsp by mouth every 4 hours as needed for cough GUAIFENESIN-CODEINE 85936038481 No Longer Activ e Hugo Restrepo MD Active AVELOX 400 MG TABS 1 tab by mouth daily MOXIFLO XACIN HCL 03045670140 No Longer Active Marcy De La Rosa MD PhD Active TERBINAFINE HCL 250 MG TABS 1 qDay TERBINAF INE HCL 57625163545 No Longer Active Marcy De La Rosa MD PhD Active CHERATUSSIN AC 100-10 MG/5ML SYRP 1 tsp by mouth every 4 hours as needed for cough GUAIFENESIN-CODEINE 65203335987 No Longer Activ e Marcy De La Rosa MD PhD Active AVELOX 400 MG TABS 1 tab by mouth daily MOXIFLO XACIN HCL 60482227361 No Longer Active Marcy De La Rosa MD PhD Active HYDROCODONE-ACETAMINOPHEN 5-325 MG TABS 1 po q 6hr PRN cough 201 05/09/16 HYDROCODONE-ACETAMINOPHEN 37076385425 No Longer Active Marcy De La Rosa MD PhD Active PREDNISONE 20 MG TAB 2 tabs daily for 3 days, 1 t ab daily for 3 days, 1/2 tab daily for 2 days PREDNISONE 32798711819 No Longer Active Carlton Hu MD Active CEFDINIR 300 MG CAPS by mouth twice a day CEFDI ODILIA 67374590245 No Longer Active Carlton Hu MD Active HYDROCHLOROTHIAZIDE 25 MG TABS 1 TAB PO DAILY H YDROCHLOROTHIAZIDE 99062082200 Active Carlton Hu MD Active ACETAMINOPHEN-CODEINE #3 300-30 MG TABS 1 tablet po q 4-6hrs prn pain ACETAMINOPHEN-CODEINE 53912271706 No Longer Active Ridge Bess DO Active ZITHROMAX 250 MG TAB 2 po today, then 1 po q days 2-5 AZITHROMYCIN 35401941180 No Longer Active Carlton Hu MD Acti ve CHERATUSSIN AC 100-10 MG/5ML SYRP take 1 tsp po q4-6 hours prn c ough GUAIFENESIN-CODEINE 66220577252 No Longer Active Carlton Hu MD Active ACETAMINOPHEN-CODEINE #3 300-30 MG TABS 1 PO Q 4-6 HR PRN PAIN 2 ACETAMINOPHEN-CODEINE 68148400914 No Longer Active Carlton rich MD Active LORTAB 7.5-500 MG/15ML ELIX 7.5 ml po q 4 hour prn cough HYDROCODONE-ACETAMINOPHEN 20380831278 No Longer Active Carlton Hu MD Active PREDNISONE 20 MG TAB 1 po bid 3 days, then 1 po q day 3 days 201 05/03/07 PREDNISONE 94111757888 No Longer Active Carlton Hu MD Active ELMIRON 100 MG CAPS 2 tablets in the am and 1 tablet at hs PENTOSAN POLYSULFATE SODIUM 87882713826 Active Carlton Hu MD Ac tive CEFDINIR 300 MG CAPS by mouth twice a day CEFDI ODILIA 74166750007 No Longer Active Carlton Hu MD Active CEFDINIR 300 MG CAPS by mouth twice a day CEFDI ODILIA 27966223932 No Longer Active Carlton Hu MD Active CEFDINIR 300 MG CAPS by mouth twice a day CEFDI ODILIA 42315704705 No Longer Active Carlton Hu MD Active TESSALON PERLES 100 MG CAP 1 tablet by mouth 3 times daily a s needed for cough BENZONATATE 77286979057 No Longer Active Carlton bustamante MD Active CEFDINIR 300 MG CAPS by mouth twice a day CEFDI ODILIA 65165373395 No Longer Active Carlton Hu MD Active ZITHROMAX Z-REYNA 250 MG TABS 2 today, then 1 daily for 4 days 201 04/09/17 AZITHROMYCIN 38028772723 No Longer Active Hugo Restrepo MD Active TESSALON PERLES 100 MG CAP 1 tablet by mouth 3 times daily a s needed for cough TESSALON PERLES 100 MG CAP 651072 BENZONATATE I nactive PREDNISONE 20 MG TAB 1 po bid 3 days, then 1 po q day 3 days 201 05/03/07 PREDNISONE 20 MG TAB 072488 PREDNISONE Inactive LORTAB 7.5-500 MG/15ML ELIX 7.5 ml po q 4 hour prn cough LORTAB 7.5-500 MG/15ML ELIX HYDROCODONE-ACETAMINOPHEN Inacti ve ACETAMINOPHEN-CODEINE #3 300-30 MG TABS 1 PO Q 4-6 HR PRN PAIN 2 ACETAMINOPHEN-CODEINE #3 300-30 MG TABS ACETAMIN OPHEN-CODEINE Inactive CHERATUSSIN AC 100-10 MG/5ML SYRP take 1 tsp po q4-6 hours prn c ough CHERATUSSIN AC 100-10 MG/5ML SYRP 275481 GUAIFENESIN-CO DEINE Inactive ACETAMINOPHEN-CODEINE #3 300-30 MG TABS 1 tablet po q 4-6hrs prn pain ACETAMINOPHEN-CODEINE #3 300-30 MG TABS ACETAMIN OPHEN-CODEINE Inactive HYDROCODONE-ACETAMINOPHEN 5-325 MG TABS 1 po q 6hr PRN cough 201 05/09/16 HYDROCODONE-ACETAMINOPHEN 5-325 MG TABS 754784 HYDROCODONE-ACETAMINOPHEN Inactive AVELOX 400 MG TABS 1 tab by mouth daily A VELOX 400 MG TABS 172002 MOXIFLOXACIN HCL Inactive CHERATUSSIN AC 100-10 MG/5ML SYRP 1 tsp by mouth every 4 hours as needed for cough CHERATUSSIN AC 100-10 MG/5ML SYRP 912084 GUAIFENESIN-CODEINE Inactive TERBINAFINE HCL 250 MG TABS 1 qDay TERBINAFINE HCL 250 MG TABS 695904 TERBINAFINE HCL Inactive CHERATUSSIN AC 100-10 MG/5ML SYRP 1 tsp by mouth every 4 hours as needed for cough CHERATUSSIN AC 100-10 MG/5ML SYRP 730090 GUAIFENESIN-CODEINE Inactive ACETAMINOPHEN-CODEINE #3 300-30 MG TABS 1 PO Q 4-6 HRS PRN PAIN ACETAMINOPHEN-CODEINE #3 300-30 MG TABS ACETAMINOPHEN-CODEIN E Inactive CHERATUSSIN AC 100-10 MG/5ML SYRP 1 tsp by mouth every 4 hours as needed for cough CHERATUSSIN AC 100-10 MG/5ML SYRP 017237 GUAIFENESIN-CODEINE Inactive AUGMENTIN 875-125 MG TAB 1 tab by mouth twice daily with food 20 12/03/31 AUGMENTIN 875-125 MG TAB 695547 AMOXICILLIN-POT CLAVULA EFE Inactive CHERATUSSIN AC 100-10 MG/5ML SYRP take one tsp po Q 6hours prn c ough CHERATUSSIN AC 100-10 MG/5ML SYRP 771320 GUAIFENESIN-CO DEINE Inactive PROPRANOLOL HCL 60 MG TABS 1 PO Q D P ROPRANOLOL HCL 60 MG TABS 579273 PROPRANOLOL HCL Inactive TOPAMAX 50 MG TABS take 1 tab po BID for migraines. 12/07/10 TOPAMAX 50 MG TABS 133248 TOPIRAMATE Inactive TOPAMAX 25 MG TABS 1 qHS x 1 week, then 1 BID x 1 week, then 1 qAM and 2 qHS x 1 week, then 2 BID (migraine prevention) TOPAMAX 2 5 MG TABS 462799 TOPIRAMATE Inactive LYRICA 75 MG CAPS TAKE 1 CAPSULE BY MOUTH TWICE DAILY LYRICA 75 MG CAPS PREGABALIN Inactive SYMBICORT 160-4.5 MCG/ACT AERO 2 puffs bid with rinse after 2011 SYMBICORT 160-4.5 MCG/ACT AERO BUDESONIDE-FORMOT SÁNCHEZ FUMARATE Inactive PROMETHAZINE-CODEINE 6.25-10 MG/5ML SYRP 1 tsp by mouth ever y 8 hours prn cough PROMETHAZINE-CODEINE 6.25-10 MG/5ML SYRP 772298 PROMETHAZINE-CODEINE Inactive CYMBALTA 30 MG CPEP 1 cap by mouth daily CYMBALTA 30 MG CPEP 995688 DULOXETINE HCL Inactive PREMARIN 0.625 MG TABS TAKE 1 TAB BY MOUTH DAILY 07/25 PREMARIN 0.625 MG TABS ESTROGENS CONJUGATED Inactive CHERATUSSIN AC 100-10 MG/5ML SYRP 1 tsp by mouth every 4 hours as needed for cough CHERATUSSIN AC 100-10 MG/5ML SYRP 274594 GUAIFENESIN-CODEINE Inactive PROMETHAZINE-CODEINE 6.25-10 MG/5ML SYRP 1 tsp by mout h every 6 hours if needed for cough PROMETHAZINE-CODEINE 6.25-10 MG/5ML SYRP 330799 PROMETHAZINE-CODEINE Inactive CHERATUSSIN AC 100-10 MG/5ML SYRP 1 tsp by mouth every 4 hours as needed for cough CHERATUSSIN AC 100-10 MG/5ML SYRP 605982 GUAIFENESIN-CODEINE Inactive FLUTICASONE PROPIONATE 50 MCG/ACT SUSP 1 to 2 sprays each no stril daily FLUTICASONE PROPIONATE 50 MCG/ACT SUSP 6805683 FLUTICASONE PROPIONATE Inactive PREDNISONE 20 MG ORAL TABS 3 tab PO qd x 2d, 2 tab PO qd x 2d, 1 tab PO qd x 2d, 1/2 tab PO qd x 2d PREDNISONE 20 MG ORAL TABS 232593 PREDNISONE Inactive LEVOFLOXACIN 500 MG ORAL TABS 1 tab PO daily x 10 days LEVOFLOXACIN 500 MG ORAL TABS 300262 LEVOFLOXACIN Inactive CYCLOBENZAPRINE HCL 10 MG TABS 1 tablet by mouth BID prn had cherelle n CYCLOBENZAPRINE HCL 10 MG TABS 010560 CYCLOBENZAPRINE H CL Inactive ZOCOR 40 MG TAB 1 tab by mouth daily ZOCOR 40 M G TAB 943516 SIMVASTATIN Inactive TUSSIONEX PENNKINETIC ER 10-8 MG/5ML [...] empty FLUTICASONE PROPIONATE 50 MCG/ACT SUSP 17 02144 FLUTICASONE PROPIONATE Inactive TUSSIONEX PENNKINETIC ER 10-8 MG/5ML ORAL LQCR 5 mL PO q 12 hrs PRN cough TUSSIONEX PENNKINETIC ER 10-8 MG/5ML ORAL LQCR HYDROCOD POLST-CHLORPHEN POLST Inactive LYRICA 100 MG CAPS Take 1 tab po BID for fibromyalgia LYRICA 100 MG CAPS PREGABALIN Inactive ZITHROMAX Z-REYNA 250 MG TABS 2 today, then 1 daily for 4 days 201 04/09/17 ZITHROMAX Z-REYNA 250 MG TABS 3174755 AZITHROMYCIN Inac tive CEFDINIR 300 MG CAPS [...] q days 2-5 ZITHROMAX 250 MG TAB 7890312 AZITHROMYCIN Inactive CEFDINIR 300 MG CAPS by mouth twice a day CEFDINIR 300 MG CAPS 414392 CEFDINIR Inactive PREDNISONE 20 MG TAB 2 tabs daily for 3 days, 1 t ab daily for 3 days, 1/2 tab daily for 2 days PREDNISONE 20 MG TAB 979673 PREDNISON E Inactive AVELOX 400 MG TABS 1 tab by mouth daily A VELOX 400 MG TABS 363875 MOXIFLOXACIN HCL Inactive AVELOX 400 MG TABS 1 tab by mouth daily A VELOX 400 MG TABS 932478 MOXIFLOXACIN HCL Inactive PREDNISONE 20 MG TAB Take 3 tabs daily for 3 days , 2 tabs daily for 3 days, 1 tab daily for 3 days, 1/2 tab daily for 3 days PREDNISONE 20 MG TAB 897502 PREDNISONE Inactive LEVAQUIN 500 MG TABS take one po QD LEVAQUIN 50 0 MG TABS 786136 LEVOFLOXACIN Inactive AZITHROMYCIN 250 MG TABS 2 po qd x 1 day, then 1 po qd x 4 days AZITHROMYCIN 250 MG TABS 6434517 AZITHROMYCIN Inactiv e MEDROL (REYNA) 4 MG TABS 6 tabs on day 1, 5 tabs on d ay 2, 4 tabs on day 3, 3 tabs on day 4, 2 tabs on day 5, 1 tab on day 6 MEDROL (REYNA) 4 MG TABS 291767 METHYLPREDNISOLONE Inactive CHERATUSSIN AC 100-10 MG/5ML SYRP 5ml po q6hr PRN Cough CHERATUSSIN AC 100-10 MG/5ML SYRP 741786 GUAIFENESIN-CODEINE Inacti ve TRIAMCINOLONE ACETONIDE 0.1 % CREA apply three times daily prn r beatrice TRIAMCINOLONE ACETONIDE 0.1 % CREA 4006326 TRIAMCINOLONE ACETONIDE Inactive AZITHROMYCIN 250 MG TABS 2 po qd x 1 day, then 1 po qd x 4 days AZITHROMYCIN 250 MG TABS 2872570 AZITHROMYCIN Inactiv e MEDROL (REYNA) 4 MG TABS 6 pills x 1 day, then 5 pill s x 1 day then 4 pills x 1 day, then 3 pills x 1 day, then 2 pills x 1 day, then 1 pill x 1 day, then stop MEDROL (REYNA) 4 MG TABS 450666 METHYLPREDNISOLONE Inactive AMOXICILLIN 500 MG CAP 1 tab by mouth 3 times daily x 10 days 20 13/03/08 AMOXICILLIN 500 MG CAP 688997 AMOXICILLIN Inactive AMOXICILLIN 500 MG CAP 1 tab by mouth 3 times daily x 10 days 20 14/04/28 AMOXICILLIN 500 MG CAP 217357 AMOXICILLIN Inactive ZITHROMAX 250 MG TAB 2 po today, then 1 po q days 2-5 ZITHROMAX 250 MG TAB 5948447 AZITHROMYCIN Inactive AUGMENTIN 875-125 MG TAB 1 po BID x 10 days AUGMENTIN 875- 125 MG TAB 241798 AMOXICILLIN-POT CLAVULANATE Inactive ZITHROMAX Z-REYNA 250 MG TABS 2 today, then 1 daily for 4 days 201 08/07/20 ZITHROMAX Z-REYNA 250 MG TABS 2049028 AZITHROMYCIN Inac tive ZITHROMAX 250 MG TAB 2 po today, then 1 po q days 2-5 ZITHROMAX 250 MG TAB 4492325 AZITHROMYCIN Inactive ZITHROMAX Z-REYNA 250 MG TABS 2 today, then 1 daily for 4 days 201 08/30/03 ZITHROMAX Z-REYNA 250 MG TABS 8779470 AZITHROMYCIN Inac tive CEFDINIR 300 MG CAPS 1 po BID x 10 days C EFDINIR 300 MG CAPS 435244 CEFDINIR Inactive ZITHROMAX 250 MG TAB 2 po today, then 1 po q days 2-5 ZITHROMAX 250 MG TAB 8726925 AZITHROMYCIN Inactive LEVAQUIN 500 MG TAB 1 tablet by mouth daily LEVAQUIN 500 MG TAB 821189 LEVOFLOXACIN Inactive SINGULAIR 10 MG TABS 1 po qday for allergies 2 SINGULAIR 10 MG TABS 20010504 MONTELUKAST SODIUM Inactive AMOXICILLIN 500 MG CAPS 2 po BID x 10 days AMOXICILLIN 500 MG CAPS 359344 AMOXICILLIN Inactive PREDNISONE 20 MG TAB 2 tabs daily for 3 days, 1 t ab daily for 3 days, 1/2 tab daily for 2 days PREDNISONE 20 MG TAB 790563 PREDNISON E Inactive ZITHROMAX Z-REYNA 250 MG TABS 2 today, then 1 daily for 4 days 201 09/29/14 ZITHROMAX Z-REYAN 250 MG TABS 4242747 AZITHROMYCIN Inac tive PREDNISONE 20 MG TAB 2 tabs daily for 3 days, 1 t ab daily for 3 days, 1/2 tab daily for 2 days PREDNISONE 20 MG TAB 377913 PREDNISON E Inactive Vital Signs Date Name Value Unit [...] - [id number] [lb_av] Weigh t Measured Encounters Code Encounter Date Provider Facility CPT-98624 Level 3 Est. Patient 13:42:38 CDT Italo [facility] [place] CPT-85808 Level 3 Est. Patient 13:23:51 CDT Diya cobian [facility] [place] CPT-48336 Level 3 Est. Patient 14:22:19 SERVICE ADVOCATE CONTACT Diya cobian [facility] [place] CPT-81556 Level 3 Est. Patient 10:11:46 CDT Carlton rich MD [facility] CPT-89385 Level 3 Est. Patient 17:29:43 CDT Italo [facility] CPT-56920 Level 3 Est. Patient 11:58:06 CDT Elise Cesar chelly BILL [facility] CPT-01380 Level 4 Est. Patient 14:36:51 CDT Carlton rich MD [facility]-53146 Level 3 Est. Patient 18:16:00 SERVICE ADVOCATE CONTACT Blaine Freeman [facility]-68403 Level 3 Est. Patient 09:45:49 SERVICE ADVOCATE CONTACT Carlton rich MD [facility]-76364 Level 3 Est. Patient 13:19:20 CDT Carlton rich MD [facility]-21078 Level 3 Est. Patient 13:06:43 CDT Ridge tam DO [facility] CPT-36602 Level 3 Est. Patient 10:03:07 CDT Perez Mora MD [facility]-31830 Level 3 Est. Patient 19:50:35 SERVICE ADVOCATE CONTACT Carlton rich MD [facility] CPT-37155 Level 4 Est. Patient 18:05:01 SERVICE ADVOCATE CONTACT Carlton rich MD [facility]-82681 Level 3 Est. Patient 10:45:55 SERVICE ADVOCATE CONTACT Hugo Restrepo MD [facility]-80865 Level 3 Est. Patient 14:12:49 CDT Griffin [facility]-44838 Level 3 Est. Patient 17:37:24 CDT Carlton rich MD [facility]-73426 Level 3 Est. Patient 16:51:54 CDT Carlton rich MD [facility]-80563 Level 3 Est. Patient 12:18:11 CDT Hugo Restrepo MD [facility]-02065 Level 3 Est. Patient 11:30:25 CDT Marcy crisostomo MD PhD [facility] CPT-93511 Level 3 Est. Patient 12:00:47 SERVICE ADVOCATE CONTACT Carlton rich MD [facility] CPT-04767 Level 3 Est. Patient 16:31:06 SERVICE ADVOCATE CONTACT Carlton rich MD [facility] CPT-71680 Level 3 Est. Patient 16:23:24 SERVICE ADVOCATE CONTACT Ridge tam [facility] CPT-48024 Level 3 Est. Patient 12:34:12 CDT Carlton rich MD [facility] CPT-66113 Level 2 Est. Patient 15:43:33 CDT Robi armstrong MD [facility] CPT-15326 Level 4 Est. Patient 14:04:44 CDT Carlton rich MD [facility] CPT-01431 Level 3 Est. Patient 05:47:59 CDT Ridge tam [facility] CPT-96015 Level 3 Est. Patient 13:12:53 SERVICE ADVOCATE CONTACT Carlton rich MD [facility] CPT-50785 Level 3 Est. Patient 14:26:53 CDT Hugo Restrepo MD [facility] Procedures Code Procedure Name Date Entry Date Standard Desc ription CPT-J0696 Rocephin 1gm Inj Solr 14:32:13 CDT CPT-J1020 Depo Medrol 60 mg (Methyl Prednisolone A cetate) 14:32:13 CDT CPT-J1100 Decadron 6mg (Dexamethasone) 14:32:13 CDT 2 CPT-22135 Hip bilat min 2V w AP pelvis 13:16:20 CDT 2 CPT-79953 Pelvis only 13:07:33 CDT CPT-49901 Spec Collection and Handling Fee 11:25:12 C DT CPT-37077 Fluzone Quadrivalent Intramuscular Suspe nsion 0.5 ML 14:31:55 CDT CPT-41882 Abx/Therapy Injection 13:28:47 SERVICE ADVOCATE CONTACT CPT-J2930 Solu Medrol 125 mg (Methyl Prednisolone Sodium Succinate) 12:00:47 SERVICE ADVOCATE CONTACT CPT-09352 Venipuncture Draw Fee 11:33:31 CDT CPT-33007 EKG Trac and Interp 11:21:09 CDT CPT-90991 Chest 2V Frontal and Lat 11:21:09 CDT 12/15 CPT-13563 Venipuncture Draw Fee 08:02:34 CDT CPT-65074 Chest 2V Frontal and Lat 05:47:59 CDT 06/05
[2019-10-08] MEDS ORDERED: MIDAZOLAM 2 MG/2 ML (VERSED) VIAL ONE (08:08)
[2019-10-08] MEDS ORDERED: fentaNYL INJECTION 100 MCG/2 ML AMP ONE (08:08)
--- OUTSIDE RECORDS SUMMARY | 2019-10-08 08:08 | XMS REPORT | Clinical Summary ---
Author Author Caitlin, Juliana Martinez Organization [employer] [facility] Address Unknown Phone Unavailable Allergies, Adverse Reactions, Alerts Allergy Name Reaction Description Start Date Severity Status Pr ovider No Known Allergies Cloumbabrady Kendallida Conditions or Problems Problem Name Problem Code [...] subpopulat ions Hip pain, left 719.45 Active Rideg Bess DO Pain in joint involving pelvic region and thigh Pelvic pain, acute 789.09 Active Ridge Bess DO Abdominal pain, other specified site; multiple sites Sinusitis 473.9 Active Diya De Guzman INTAKE MAN Unspecified sinusitis (chronic) Bronchitis-Acute 466.0 Active Carlton Hu MD Acute bronchitis URI - acute 465.9 Active Elise Whitmore INTAKE MAN Acute upper respiratory infections of unspecified site Pharyngitis acute 462 Active Elise Whitmore A PRN Acute pharyngitis Rhinitis, acute 460 Active Elise Whitmore APR N Acute nasopharyngitis [common cold] BRONCHITIS ICD-490 Inactive Hugo Restrepo MD 201 04/09/17 MAXILLARY SINUSITIS ICD-473.0 Inactive Marcy De La Rosa MD PhD BRONCHITIS, ACUTE WITH MILD BRONCHOSPASM ICD-466.0 Inactive Marcy De La Rosa MD PhD DYSPNEA ICD-786.05 Inactive Marcy De La Rosa MD P hD HEALTH SCREENING ICD-V70.0 Inactive Marcy ya MD PhD CHEST WALL PAIN, ACUTE ICD-786.52 Inactive Lvi De La Rosa MD PhD PNEUMONIA ICD-486 Inactive Marcy De La Rosa MD PhD 201 06/01/09 SINUSITIS ICD-473.9 Inactive Marcy De La Rosa MD Ph D CONTACT DERMATITIS ICD-692.9 Inactive Marcy crisostomo MD PhD SINUSITIS, ACUTE ICD-461.9 Inactive Hugo dominguez MD Medication List Medication Instructions Start Date Stop Date Generic Name NDC Status Provider Patient Instruction LEVAQUIN 500 MG TAB 1 tablet by mouth daily LEV OFLOXACIN 93285005047 No Longer Active Carlton Hu MD Active FLUTICASONE PROPIONATE 50 MCG/ACT SUSP 2 sprays each n ostril daily for 2 weeks, then 1 spray each nostril daily. FLUTICASONE PRO PIONATE 46290846005 Active Elise Whitmore APRN Active ZITHROMAX 250 MG TAB 2 po today, then 1 po q days 2-5 AZITHROMYCIN 99219238504 No Longer Active Elise Whitmore APRN Acti ve XANAX 0.5 MG TABS one tablet by mouth daily prn anxiety ALPRAZOLAM 54735890025 Active Carlton Hu MD Active CYMBALTA 30 MG CPEP 1 cap by mouth daily for depression DULOXETINE HCL 42514227475 Active Carlton Hu MD Active CEFDINIR 300 MG CAPS 1 po BID x 10 days CEFDINI R 58957237836 No Longer Active Carlton Hu MD Active ZOCOR 40 MG TAB 1 tab by mouth daily SIMVASTATI N 34972717678 No Longer Active Carlton Hu MD Active CYCLOBENZAPRINE HCL 10 MG TABS 1 tablet by mouth BID prn had cherelle n CYCLOBENZAPRINE HCL 39525527048 No Longer Active Carlton Hu MD Active LEVOFLOXACIN 500 MG ORAL TABS 1 tab PO daily x 10 days LEVOFLOXACIN 55063665492 No Longer Active Carlton Hu MD Acti ve PREDNISONE 20 MG ORAL TABS 3 tab PO qd x 2d, 2 tab PO qd x 2d, 1 tab PO qd x 2d, 1/2 tab PO qd x 2d PREDNISONE 89781622502 No Longer Active Carlton Hu MD Active TUSSIONEX PENNKINETIC ER 10-8 MG/5ML ORAL LQCR 5 mL PO q 12 hrs PRN cough HYDROCOD POLST-CHLORPHEN POLST 43241027668 Active Zo meeks Active FLUTICASONE PROPIONATE 50 MCG/ACT SUSP 1 to 2 sprays each no stril daily FLUTICASONE PROPIONATE 03310691315 No Longer Active T jaz HERNANDEZ Active CHERATUSSIN AC 100-10 MG/5ML SYRP 1 tsp by mouth every 4 hours as needed for cough GUAIFENESIN-CODEINE 25660118439 No Longer Activ e Blaine HERNANDEZ Active PROMETHAZINE-CODEINE 6.25-10 MG/5ML SYRP 1 tsp by mout h every 6 hours if needed for cough PROMETHAZINE-CODEINE 38492312012 No Long er Active Blaine HERNANDEZ Active CHERATUSSIN AC 100-10 MG/5ML SYRP 1 tsp by mouth every 4 hours as needed for cough GUAIFENESIN-CODEINE 69998579442 No Longer Activ e Blaine HERNANDEZ Active ZITHROMAX Z-REYNA 250 MG TABS 2 today, then 1 daily for 4 days 201 08/30/03 AZITHROMYCIN 30090441485 No Longer Active Columba Raida Act nael ZITHROMAX 250 MG TAB 2 po today, then 1 po q days 2-5 AZITHROMYCIN 84359759264 No Longer Active Carlton Hu MD Acti ve ZITHROMAX Z-REYNA 250 MG TABS 2 today, then 1 daily for 4 days 201 08/07/20 AZITHROMYCIN 98795319252 No Longer Active Columba Raida Act nael AUGMENTIN 875-125 MG TAB 1 po BID x 10 days AMOXICILLIN- POT CLAVULANATE 27209080017 No Longer Active Diya De Guzman APRN Active ZITHROMAX 250 MG TAB 2 po today, then 1 po q days 2-5 AZITHROMYCIN 46618102583 No Longer Active Carlton Hu MD Acti ve TRAMADOL HCL 50 MG TABS 1 po tid with ES Tylenol TRAMADOL HCL 95525144566 Active Carlton Hu MD Active PREMARIN 0.625 MG TABS TAKE 1 TAB BY MOUTH DAILY 07/25 ESTROGENS CONJUGATED 76338308541 No Longer Active Ridge Bess DO Active CYMBALTA 30 MG CPEP 1 cap by mouth daily DULOXE SNEHA HCL 46327580653 No Longer Active Ridge Bess DO Active AMOXICILLIN 500 MG CAP 1 tab by mouth 3 times daily x 10 days 20 14/04/28 AMOXICILLIN 72245955092 No Longer Active Carlton Hu MD Active AMOXICILLIN 500 MG CAP 1 tab by mouth 3 times daily x 10 days 20 13/03/08 AMOXICILLIN 01057207309 No Longer Active Carlton Hu MD Active PROMETHAZINE-CODEINE 6.25-10 MG/5ML SYRP 1 tsp by mouth ever y 8 hours prn cough PROMETHAZINE-CODEINE 00312543035 No Longer Active Robert Hu MD Active MEDROL (REYNA) 4 MG TABS 6 pills x 1 day, then 5 pill s x 1 day then 4 pills x 1 day, then 3 pills x 1 day, then 2 pills x 1 day, then 1 pill x 1 day, then stop METHYLPREDNISOLONE 26998658819 No Longer Active Parris Mora MD Active AZITHROMYCIN 250 MG TABS 2 po qd x 1 day, then 1 po qd x 4 days AZITHROMYCIN 43206034236 No Longer Active Perez Mora MD Active SYMBICORT 160-4.5 MCG/ACT AERO 2 puffs bid with rinse after 2011 BUDESONIDE-FORMOTEROL FUMARATE 12014438377 No Longer Active Perez Mora MD Active LYRICA 75 MG CAPS TAKE 1 CAPSULE BY MOUTH TWICE DAILY 2013 PREGABALIN 18257711533 No Longer Active Carlton Hu MD Active LYRICA 100 MG CAPS Take 1 tab po BID for fibromyalgia PREGABALIN 62353662846 Active Elise Whitmore APRN Active TOPAMAX 25 MG TABS 1 qHS x 1 week, then 1 BID x 1 week, then 1 qAM and 2 qHS x 1 week, then 2 BID (migraine prevention) TOPIRAMAT E 46059575327 No Longer Active Jerica Farnaz FUENTES Active TOPAMAX 50 MG TABS take 1 tab po BID for migraines. 12/07/10 TOPIRAMATE 71765031711 No Longer Active Jerica Manzoerica AGUILRAA Ac tive TOPAMAX 100 MG TABS Take 1 tablet po bid TOPIRAMATE 4999 6761467 Active Carlton Hu MD Active TRIAMCINOLONE ACETONIDE 0.1 % CREA apply three times daily prn r beatrice TRIAMCINOLONE ACETONIDE 42850291190 No Longer Active Carlton Hu MD Active PAXIL 40 MG TAB take 1 tab po qday for depression PAROXETINE HCL 59673063519 Active Elise Whitmore INTAKE MAN Active CHERATUSSIN AC 100-10 MG/5ML SYRP 5ml po q6hr PRN Cough GUAIFENESIN-CODEINE 24943843026 No Longer Active Carlton Hu MD Active MEDROL (REYNA) 4 MG TABS 6 tabs on day 1, 5 tabs on d ay 2, 4 tabs on day 3, 3 tabs on day 4, 2 tabs on day 5, 1 tab on day 6 METHYLPREDNISOLONE 60209938014 No Longer Active Perez Mora MD Active AZITHROMYCIN 250 MG TABS 2 po qd x 1 day, then 1 po qd x 4 days AZITHROMYCIN 02803620887 No Longer Active Perez Mora MD Active PROPRANOLOL HCL 60 MG TABS 1 PO Q D PROPRANOL OL HCL 09764678451 No Longer Active Perez Mora MD Active CHERATUSSIN AC 100-10 MG/5ML SYRP take one tsp po Q 6hours prn c ough GUAIFENESIN-CODEINE 28047558267 No Longer Active Perez Means Active AUGMENTIN 875-125 MG TAB 1 tab by mouth twice daily with food 20 12/03/31 AMOXICILLIN-POT CLAVULANATE 85338099192 No Longer Active Chanel Mora MD Active CHERATUSSIN AC 100-10 MG/5ML SYRP 1 tsp by mouth every 4 hours as needed for cough GUAIFENESIN-CODEINE 81467542892 No Longer Activ e Hugo Restrepo MD Active ACETAMINOPHEN-CODEINE #3 300-30 MG TABS 1 PO Q 4-6 HRS PRN PAIN ACETAMINOPHEN-CODEINE 78897984533 No Longer Active Hugo Restrepo MD Active LEVAQUIN 500 MG TABS take one po QD LEVOFLOXACI N 40828080598 No Longer Active Griffin HERNANDEZ Active PREDNISONE 20 MG TAB Take 3 tabs daily for 3 days , 2 tabs daily for 3 days, 1 tab daily for 3 days, 1/2 tab daily for 3 days P REDNISONE 64584635647 No Longer Active Carlton Hu MD Active AVELOX 400 MG TABS 1 tab by mouth daily MOXIFLO XACIN HCL 43611802333 No Longer Active Carlton Hu MD Active CHERATUSSIN AC 100-10 MG/5ML SYRP 1 tsp by mouth every 4 hours as needed for cough GUAIFENESIN-CODEINE 25011065623 No Longer Activ e Hugo Restrepo MD Active AVELOX 400 MG TABS 1 tab by mouth daily MOXIFLO XACIN HCL 67328990605 No Longer Active Marcy De La Rosa MD PhD Active TERBINAFINE HCL 250 MG TABS 1 qDay TERBINAF INE HCL 32575637203 No Longer Active Marcy De La Rosa MD PhD Active CHERATUSSIN AC 100-10 MG/5ML SYRP 1 tsp by mouth every 4 hours as needed for cough GUAIFENESIN-CODEINE 89709374864 No Longer Activ e Marcy De La Rosa MD PhD Active AVELOX 400 MG TABS 1 tab by mouth daily MOXIFLO XACIN HCL 11681005876 No Longer Active Marcy De La Rosa MD PhD Active HYDROCODONE-ACETAMINOPHEN 5-325 MG TABS 1 po q 6hr PRN cough 201 05/09/16 HYDROCODONE-ACETAMINOPHEN 69588196994 No Longer Active Marcy De La Rosa MD PhD Active PREDNISONE 20 MG TAB 2 tabs daily for 3 days, 1 t ab daily for 3 days, 1/2 tab daily for 2 days PREDNISONE 16369843722 No Longer Active Carlton Hu MD Active CEFDINIR 300 MG CAPS by mouth twice a day CEFDI ODILIA 09238245207 No Longer Active Carlton Hu MD Active HYDROCHLOROTHIAZIDE 25 MG TABS 1 TAB PO DAILY H YDROCHLOROTHIAZIDE 54786537440 Active Carlton Hu MD Active ACETAMINOPHEN-CODEINE #3 300-30 MG TABS 1 tablet po q 4-6hrs prn pain ACETAMINOPHEN-CODEINE 61739499894 No Longer Active Ridge Bess DO Active ZITHROMAX 250 MG TAB 2 po today, then 1 po q days 2-5 AZITHROMYCIN 14489814453 No Longer Active Carlton Hu MD Acti ve CHERATUSSIN AC 100-10 MG/5ML SYRP take 1 tsp po q4-6 hours prn c ough GUAIFENESIN-CODEINE 51091327490 No Longer Active Carlton Hu MD Active ACETAMINOPHEN-CODEINE #3 300-30 MG TABS 1 PO Q 4-6 HR PRN PAIN 2 ACETAMINOPHEN-CODEINE 98843184074 No Longer Active Carlton rich MD Active LORTAB 7.5-500 MG/15ML ELIX 7.5 ml po q 4 hour prn cough HYDROCODONE-ACETAMINOPHEN 29485820607 No Longer Active Carlton Hu MD Active PREDNISONE 20 MG TAB 1 po bid 3 days, then 1 po q day 3 days 201 05/03/07 PREDNISONE 89842403469 No Longer Active Carlton Hu MD Active ELMIRON 100 MG CAPS 2 tablets in the am and 1 tablet at hs PENTOSAN POLYSULFATE SODIUM 97281298804 Active Carlton Hu MD Ac tive CEFDINIR 300 MG CAPS by mouth twice a day CEFDI ODILIA 20796045524 No Longer Active Carlton Hu MD Active CEFDINIR 300 MG CAPS by mouth twice a day CEFDI ODILIA 87229819033 No Longer Active Carlton Hu MD Active CEFDINIR 300 MG CAPS by mouth twice a day CEFDI ODILIA 74805938006 No Longer Active Carlton Hu MD Active TESSALON PERLES 100 MG CAP 1 tablet by mouth 3 times daily a s needed for cough BENZONATATE 03503244669 No Longer Active Carlton bustamante MD Active CEFDINIR 300 MG CAPS by mouth twice a day CEFDI ODILIA 56797593286 No Longer Active Carlton Hu MD Active ZITHROMAX Z-REYNA 250 MG TABS 2 today, then 1 daily for 4 days 201 04/09/17 AZITHROMYCIN 61028856012 No Longer Active Hugo Restrepo MD Active TESSALON PERLES 100 MG CAP 1 tablet by mouth 3 times daily a s needed for cough TESSALON PERLES 100 MG CAP 508526 BENZONATATE I nactive PREDNISONE 20 MG TAB 1 po bid 3 days, then 1 po q day 3 days 201 05/03/07 PREDNISONE 20 MG TAB 813429 PREDNISONE Inactive LORTAB 7.5-500 MG/15ML ELIX 7.5 ml po q 4 hour prn cough LORTAB 7.5-500 MG/15ML ELIX HYDROCODONE-ACETAMINOPHEN Inacti ve ACETAMINOPHEN-CODEINE #3 300-30 MG TABS 1 PO Q 4-6 HR PRN PAIN 2 ACETAMINOPHEN-CODEINE #3 300-30 MG TABS 832897 ACETAMIN OPHEN-CODEINE Inactive CHERATUSSIN AC 100-10 MG/5ML SYRP take 1 tsp po q4-6 hours prn c ough CHERATUSSIN AC 100-10 MG/5ML SYRP 735655 GUAIFENESIN-CO DEINE Inactive ACETAMINOPHEN-CODEINE #3 300-30 MG TABS 1 tablet po q 4-6hrs prn pain ACETAMINOPHEN-CODEINE #3 300-30 MG TABS 147207 ACETAMIN OPHEN-CODEINE Inactive HYDROCODONE-ACETAMINOPHEN 5-325 MG TABS 1 po q 6hr PRN cough 201 05/09/16 HYDROCODONE-ACETAMINOPHEN 5-325 MG TABS 900669 HYDROCODONE-ACETAMINOPHEN Inactive AVELOX 400 MG TABS 1 tab by mouth daily A VELOX 400 MG TABS 694751 MOXIFLOXACIN HCL Inactive CHERATUSSIN AC 100-10 MG/5ML SYRP 1 tsp by mouth every 4 hours as needed for cough CHERATUSSIN AC 100-10 MG/5ML SYRP 254937 GUAIFENESIN-CODEINE Inactive TERBINAFINE HCL 250 MG TABS 1 qDay TERBINAFINE HCL 250 MG TABS 944044 TERBINAFINE HCL Inactive CHERATUSSIN AC 100-10 MG/5ML SYRP 1 tsp by mouth every 4 hours as needed for cough CHERATUSSIN AC 100-10 MG/5ML SYRP 697903 GUAIFENESIN-CODEINE Inactive ACETAMINOPHEN-CODEINE #3 300-30 MG TABS 1 PO Q 4-6 HRS PRN PAIN ACETAMINOPHEN-CODEINE #3 300-30 MG TABS 646941 ACETAMINOPHEN-CODEIN E Inactive CHERATUSSIN AC 100-10 MG/5ML SYRP 1 tsp by mouth every 4 hours as needed for cough CHERATUSSIN AC 100-10 MG/5ML SYRP 799475 GUAIFENESIN-CODEINE Inactive AUGMENTIN 875-125 MG TAB 1 tab by mouth twice daily with food 20 12/03/31 AUGMENTIN 875-125 MG TAB 887730 AMOXICILLIN-POT CLAVULA EFE Inactive CHERATUSSIN AC 100-10 MG/5ML SYRP take one tsp po Q 6hours prn c ough CHERATUSSIN AC 100-10 MG/5ML SYRP 103346 GUAIFENESIN-CO DEINE Inactive PROPRANOLOL HCL 60 MG TABS 1 PO Q D P ROPRANOLOL HCL 60 MG TABS 786939 PROPRANOLOL HCL Inactive TOPAMAX 50 MG TABS take 1 tab po BID for migraines. 12/07/10 TOPAMAX 50 MG TABS 248173 TOPIRAMATE Inactive TOPAMAX 25 MG TABS 1 qHS x 1 week, then 1 BID x 1 week, then 1 qAM and 2 qHS x 1 week, then 2 BID (migraine prevention) TOPAMAX 2 5 MG TABS 039872 TOPIRAMATE Inactive LYRICA 75 MG CAPS TAKE 1 CAPSULE BY MOUTH TWICE DAILY LYRICA 75 MG CAPS PREGABALIN Inactive SYMBICORT 160-4.5 MCG/ACT AERO 2 puffs bid with rinse after 2011 SYMBICORT 160-4.5 MCG/ACT AERO BUDESONIDE-FORMOT SÁNCHEZ FUMARATE Inactive PROMETHAZINE-CODEINE 6.25-10 MG/5ML SYRP 1 tsp by mouth ever y 8 hours prn cough PROMETHAZINE-CODEINE 6.25-10 MG/5ML SYRP 559791 PROMETHAZINE-CODEINE Inactive CYMBALTA 30 MG CPEP 1 cap by mouth daily CYMBALTA 30 MG CPEP 773168 DULOXETINE HCL Inactive PREMARIN 0.625 MG TABS TAKE 1 TAB BY MOUTH DAILY 07/25 PREMARIN 0.625 MG TABS ESTROGENS CONJUGATED Inactive CHERATUSSIN AC 100-10 MG/5ML SYRP 1 tsp by mouth every 4 hours as needed for cough CHERATUSSIN AC 100-10 MG/5ML SYRP 751248 GUAIFENESIN-CODEINE Inactive PROMETHAZINE-CODEINE 6.25-10 MG/5ML SYRP 1 tsp by mout h every 6 hours if needed for cough PROMETHAZINE-CODEINE 6.25-10 MG/5ML SYRP 207334 PROMETHAZINE-CODEINE Inactive CHERATUSSIN AC 100-10 MG/5ML SYRP 1 tsp by mouth every 4 hours as needed for cough CHERATUSSIN AC 100-10 MG/5ML SYRP 126865 GUAIFENESIN-CODEINE Inactive FLUTICASONE PROPIONATE 50 MCG/ACT SUSP 1 to 2 sprays each no stril daily FLUTICASONE PROPIONATE 50 MCG/ACT SUSP 829510 FLUTICASONE PROPIONATE Inactive PREDNISONE 20 MG ORAL TABS 3 tab PO qd x 2d, 2 tab PO qd x 2d, 1 tab PO qd x 2d, 1/2 tab PO qd x 2d PREDNISONE 20 MG ORAL TABS 133358 PREDNISONE Inactive LEVOFLOXACIN 500 MG ORAL TABS 1 tab PO daily x 10 days LEVOFLOXACIN 500 MG ORAL TABS 817523 LEVOFLOXACIN Inactive CYCLOBENZAPRINE HCL 10 MG TABS 1 tablet by mouth BID prn had cherelle n CYCLOBENZAPRINE HCL 10 MG TABS 264203 CYCLOBENZAPRINE H CL Inactive ZOCOR 40 MG TAB 1 tab by mouth daily ZOCOR 40 M G TAB 690289 SIMVASTATIN Inactive ZITHROMAX Z-REYNA 250 MG TABS 2 today, then 1 daily for 4 days 201 04/09/17 ZITHROMAX Z-REYNA 250 MG TABS 6355456 AZITHROMYCIN Inac tive CEFDINIR 300 MG CAPS [...] q days 2-5 ZITHROMAX 250 MG TAB 3408886 AZITHROMYCIN Inactive CEFDINIR 300 MG CAPS by mouth twice a day CEFDINIR 300 MG CAPS 20020704 CEFDINIR Inactive PREDNISONE 20 MG TAB 2 tabs daily for 3 days, 1 t ab daily for 3 days, 1/2 tab daily for 2 days PREDNISONE 20 MG TAB 292900 PREDNISON E Inactive AVELOX 400 MG TABS 1 tab by mouth daily A VELOX 400 MG TABS 078356 MOXIFLOXACIN HCL Inactive AVELOX 400 MG TABS 1 tab by mouth daily A VELOX 400 MG TABS 625370 MOXIFLOXACIN HCL Inactive PREDNISONE 20 MG TAB Take 3 tabs daily for 3 days , 2 tabs daily for 3 days, 1 tab daily for 3 days, 1/2 tab daily for 3 days PREDNISONE 20 MG TAB 812309 PREDNISONE Inactive LEVAQUIN 500 MG TABS take one po QD LEVAQUIN 50 0 MG TABS 258282 LEVOFLOXACIN Inactive AZITHROMYCIN 250 MG TABS 2 po qd x 1 day, then 1 po qd x 4 days AZITHROMYCIN 250 MG TABS 1897713 AZITHROMYCIN Inactiv e MEDROL (REYNA) 4 MG TABS 6 tabs on day 1, 5 tabs on d ay 2, 4 tabs on day 3, 3 tabs on day 4, 2 tabs on day 5, 1 tab on day 6 MEDROL (REYNA) 4 MG TABS 485038 METHYLPREDNISOLONE Inactive CHERATUSSIN AC 100-10 MG/5ML SYRP 5ml po q6hr PRN Cough CHERATUSSIN AC 100-10 MG/5ML SYRP 544069 GUAIFENESIN-CODEINE Inacti ve TRIAMCINOLONE ACETONIDE 0.1 % CREA apply three times daily prn r beatrice TRIAMCINOLONE ACETONIDE 0.1 % CREA 1741127 TRIAMCINOLONE ACETONIDE Inactive AZITHROMYCIN 250 MG TABS 2 po qd x 1 day, then 1 po qd x 4 days AZITHROMYCIN 250 MG TABS 7975606 AZITHROMYCIN Inactiv e MEDROL (REYNA) 4 MG TABS 6 pills x 1 day, then 5 pill s x 1 day then 4 pills x 1 day, then 3 pills x 1 day, then 2 pills x 1 day, then 1 pill x 1 day, then stop MEDROL (REYNA) 4 MG TABS 327800 METHYLPREDNISOLONE Inactive AMOXICILLIN 500 MG CAP 1 tab by mouth 3 times daily x 10 days 20 13/03/08 AMOXICILLIN 500 MG CAP 069018 AMOXICILLIN Inactive AMOXICILLIN 500 MG CAP 1 tab by mouth 3 times daily x 10 days 20 14/04/28 AMOXICILLIN 500 MG CAP 163567 AMOXICILLIN Inactive ZITHROMAX 250 MG TAB 2 po today, then 1 po q days 2-5 ZITHROMAX 250 MG TAB 8486857 AZITHROMYCIN Inactive AUGMENTIN 875-125 MG TAB 1 po BID x 10 days AUGMENTIN 875- 125 MG TAB 405781 AMOXICILLIN-POT CLAVULANATE Inactive ZITHROMAX Z-REYNA 250 MG TABS 2 today, then 1 daily for 4 days 201 08/07/20 ZITHROMAX Z-REYNA 250 MG TABS 5410416 AZITHROMYCIN Inac tive ZITHROMAX 250 MG TAB 2 po today, then 1 po q days 2-5 ZITHROMAX 250 MG TAB 2430690 AZITHROMYCIN Inactive ZITHROMAX Z-REYNA 250 MG TABS 2 today, then 1 daily for 4 days 201 08/30/03 ZITHROMAX Z-REYNA 250 MG TABS 2751880 AZITHROMYCIN Inac tive CEFDINIR 300 MG CAPS 1 po BID x 10 days C EFDINIR 300 MG CAPS 880881 CEFDINIR Inactive ZITHROMAX 250 MG TAB 2 po today, then 1 po q days 2-5 ZITHROMAX 250 MG TAB 5570351 AZITHROMYCIN Inactive LEVAQUIN 500 MG TAB 1 tablet by mouth daily LEVAQUIN 500 MG TAB 446448 LEVOFLOXACIN Inactive Vital Signs Date Name Value Unit Range Description blood pressure, diastolic - 8462-4 67 mm[Hg] [...] - 3141-9 138.5 [lb_av] Weigh t Measured blood pressure, diastolic - 8462-4 74 mm[Hg] BP srinivasan blood pressure, systolic - 8480-6 104 mm[Hg] BP sys pulse rate E&M - 8867-4 78 /min H eart rate temperature E&M 97.1 [degF] Body temp erature weight E&M - 3141-9 139.5 [lb_av] Weigh t Measured blood pressure, diastolic - 8462-4 71 mm[Hg] BP srinivasan blood pressure, systolic - 8480-6 108 mm[Hg] BP sys pulse rate E&M - 8867-4 88 /min H eart rate temperature E&M 96.6 [degF] Body temp erature weight E&M - 3141-9 139 [lb_av] Weigh t Measured blood pressure, diastolic - 8462-4 80 mm[Hg] BP srinivasan blood pressure, systolic - 8480-6 128 mm[Hg] BP sys pulse rate E&M - 8867-4 80 /min H eart rate temperature E&M 96.4 [degF] Body temp erature weight E&M - 3141-9 132 [lb_av] Weigh t Measured Encounters Code Encounter Date Provider Facility CPT-43608 Level 3 Est. Patient 10:11:46 CDT Carlton rich MD [facility] CPT-52154 Level 3 Est. Patient 17:29:43 CDT Italo KHAN [facility] CPT-74527 Level 3 Est. Patient 11:58:06 CDT Italo INTAKE MAN [facility] CPT-12205 Level 4 Est. Patient 14:36:51 CDT Carlton rich MD [facility] CPT-57106 Level 3 Est. Patient 18:16:00 WEB KNITTER Blaine W Cloven [facility] CPT-20459 Level 3 Est. Patient 09:45:49 WEB KNITTER Carlton rich MD [facility] CPT-42577 Level 3 Est. Patient 13:19:20 CDT Carlton rich MD [facility] CPT-79590 Level 3 Est. Patient 13:06:43 CDT Ridge tam DO [facility] CPT-78860 Level 3 Est. Patient 10:03:07 CDT Perez Mora MD [facility] CPT-63116 Level 3 Est. Patient 19:50:35 WEB KNITTER Carlton rich MD [facility]-84686 Level 4 Est. Patient 18:05:01 WEB KNITTER Carlton rich MD [facility] CPT-42756 Level 3 Est. Patient 10:45:55 WEB KNITTER Hugo Restrepo MD [facility] CPT-23473 Level 3 Est. Patient 14:12:49 CDT Griffin lincoln [facility] CPT-43042 Level 3 Est. Patient 17:37:24 CDT Carlton rich MD [facility] CPT-62362 Level 3 Est. Patient 16:51:54 CDT Carlton rich MD [facility] CPT-76405 Level 3 Est. Patient 12:18:11 CDT Hugo Restrepo MD [facility] CPT-83386 Level 3 Est. Patient 11:30:25 CDT Marcy crisostomo MD PhD [facility]-35678 Level 3 Est. Patient 12:00:47 WEB KNITTER Carlton rich MD [facility]-05234 Level 3 Est. Patient 16:31:06 WEB KNITTER Carlton rich MD [facility]-23679 Level 3 Est. Patient 16:23:24 WEB KNITTER Ridge tam [facility] CPT-49830 Level 3 Est. Patient 12:34:12 CDT Carlton rich MD [facility] CPT-29623 Level 2 Est. Patient 15:43:33 CDT Robi armstrong MD [facility] CPT-21766 Level 4 Est. Patient 14:04:44 CDT Carlton rich MD [facility] CPT-13896 Level 3 Est. Patient 05:47:59 CDT Ridge tam [facility] CPT-03268 Level 3 Est. Patient 13:12:53 WEB KNITTER Carlton rich MD [facility] CPT-91191 Level 3 Est. Patient 14:26:53 CDT Hugo Restrepo MD [facility] Procedures Code Procedure Name Date Entry Date Standard Desc ription CPT-J0696 Rocephin 1gm Inj Solr 14:32:13 CDT CPT-J1020 Depo Medrol 60 mg (Methyl Prednisolone A cetate) 14:32:13 CDT CPT-J1100 Decadron 6mg (Dexamethasone) 14:32:13 CDT 2 CPT-61793 Hip bilat min 2V w AP pelvis 13:16:20 CDT 2 CPT-12327 Pelvis only 13:07:33 CDT CPT-42371 Spec Collection and Handling Fee 11:25:12 C DT CPT-83531 Fluzone Quadrivalent Intramuscular Suspe nsion 0.5 ML 14:31:55 CDT CPT-49731 Abx/Therapy Injection 13:28:47 WEB KNITTER CPT-J2930 Solu Medrol 125 mg (Methyl Prednisolone Sodium Succinate) 12:00:47 WEB KNITTER CPT-77505 Venipuncture Draw Fee 11:33:31 CDT CPT-49307 EKG Trac and Interp 11:21:09 CDT CPT-53060 Chest 2V Frontal and Lat 11:21:09 CDT 12/15 CPT-98129 Venipuncture Draw Fee 08:02:34 CDT CPT-93658 Chest 2V Frontal and Lat 05:47:59 CDT 06/05
--- OUTSIDE RECORDS SUMMARY | 2019-10-08 08:08 | XMS REPORT | Clinical Summary ---
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 PRESS OPERATOR Unspecified sinusitis (chronic) Bronchitis-Acute 466.0 Active Carlton Hu MD Acute bronchitis URI - acute 465.9 Active Elise Whitmore ENVELOPE PRESS OPERATOR Acute upper respiratory infections of unspecified site Pharyngitis acute 462 Active Elise Whitmore A PRN Acute pharyngitis Rhinitis, acute 460 Active Elise Whitmore APR N Acute nasopharyngitis [common cold] Sinusitis 473.9 Active Diya De Guzman ENVELOPE PRESS OPERATOR Unspecified sinusitis (chronic) Bronchitis 490 Active Diay De Guzman ENVELOPE PRESS OPERATOR Bronchitis, not specified as acute or chronic [...] a d ay as needed ALBUTEROL SULFATE 44076145289 Active Jillina Frakerriel APR N Active MUCINEX DM MAXIMUM STRENGTH 60-1200 MG [id number] 1 tab po q am 2016 DEXTROMETHORPHAN-GUAIFENESIN 25742084088 Active Jillina Frazell ENVELOPE PRESS 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 TUSSIONEX PENNKINETIC ER 10-8 MG/5ML LQCR 5ml po q12hr PRN Cough 20 14/06/21 HYDROCOD POLST-CHLORPHEN POLST 77819132878 Active Jillina Frakerriel ENVELOPE PRESS 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 PREDNISONE 20 MG TAB 2 tabs daily for 3 days, 1 t ab daily for 3 days, 1/2 tab daily for 2 days PREDNISONE 15418479353 Active Jillina Cesarl ENVELOPE PRESS 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 TUSSIONEX PENNKINETIC ER 10-8 MG/5ML ORAL LQCR 5 mL PO q 12 hrs PRN cough HYDROCOD POLST-CHLORPHEN POLST 97771987139 No Longer Active Jillina Frazell ENVELOPE PRESS 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 FLUTICASONE PROPIONATE 50 MCG/ACT SUSP 2 sprays each n ostril daily until bottle is empty FLUTICASONE PROPIONATE 51445398669 No Longer Ac tive Jillina Daphnezell ENVELOPE PRESS 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 ASMANEX 60 METERED DOSES 220 MCG/INH AEPB 1 puff bid with ri nse after MOMETASONE FUROATE 89956513972 No Longer Active Venullina Darlin meneses ENVELOPE PRESS 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 ZITHROMAX Z-REYNA 250 MG TABS 2 today, then 1 daily for 4 days 201 09/29/14 AZITHROMYCIN 24499496113 No Longer Active Elise Whitmore APRN Active TUSSIONEX PENNKINETIC ER 10-8 MG/5ML LQCR 5ml po q12hr PRN Cough HYDROCOD POLST-CHLORPHEN POLST 66701413651 No Longer Active Elise Whitmore APRN Active MUCINEX D 60-600 MG [id number] 1 tab po q am PSEUDOEPHEDRINE-GUAIFENESIN 99922978519 Active Jillina Frazell ENVELOPE PRESS 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 PREDNISONE 20 MG TAB 2 tabs daily for 3 days, 1 t ab daily for 3 days, 1/2 tab daily for 2 days PREDNISONE 65101112757 No Longer Active Jillina Frazell ENVELOPE PRESS 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 AMOXICILLIN 500 MG CAPS 2 po BID x 10 days AMOX ICILLIN 50570951535 No Longer Active Jillina Frazell ENVELOPE PRESS 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 SINGULAIR 10 MG TABS 1 po qday for allergies 2 MONTELUKAST SODIUM 71409176164 No Longer Active Carlton Hu MD Acti ve LEVAQUIN 500 MG TAB 1 tablet by mouth daily LEV OFLOXACIN 45819670566 No Longer Active Carlton Hu MD Active FLUTICASONE PROPIONATE 50 MCG/ACT SUSP 2 sprays each n ostril daily for 2 weeks, then 1 spray each nostril daily. FLUTICASONE PRO PIONATE 64801900549 Active Elise Whitmore APRN Active ZITHROMAX 250 MG TAB 2 po today, then 1 po q days 2-5 AZITHROMYCIN 72344339961 No Longer Active Elise Whitmore APRN Acti ve XANAX 0.5 MG TABS one tablet by mouth daily prn anxiety ALPRAZOLAM 75199434181 Active Elise Whitmore APRN Active CYMBALTA 30 MG CPEP 1 cap by mouth daily for depression DULOXETINE HCL 70517168476 Active Carlton Hu MD Active CEFDINIR 300 MG CAPS 1 po BID x 10 days CEFDINI R 70674296067 No Longer Active Carlton Hu MD Active ZOCOR 40 MG TAB 1 tab by mouth daily SIMVASTATI N 13958871319 No Longer Active Carlton Hu MD Active CYCLOBENZAPRINE HCL 10 MG TABS 1 tablet by mouth BID prn had cherelle n CYCLOBENZAPRINE HCL 40325981431 No Longer Active Carlton Hu MD Active LEVOFLOXACIN 500 MG ORAL TABS 1 tab PO daily x 10 days LEVOFLOXACIN 73646566546 No Longer Active Carlton Hu MD Acti ve PREDNISONE 20 MG ORAL TABS 3 tab PO qd x 2d, 2 tab PO qd x 2d, 1 tab PO qd x 2d, 1/2 tab PO qd x 2d PREDNISONE 41147338324 No Longer Active Carlton Hu MD Active FLUTICASONE PROPIONATE 50 MCG/ACT SUSP 1 to 2 sprays each no stril daily FLUTICASONE PROPIONATE 50652503282 No Longer Active T jaz HERNANDEZ Active CHERATUSSIN AC 100-10 MG/5ML SYRP 1 tsp by mouth every 4 hours as needed for cough GUAIFENESIN-CODEINE 27461486547 No Longer Activ e Blaine HERNANDEZ Active PROMETHAZINE-CODEINE 6.25-10 MG/5ML SYRP 1 tsp by mout h every 6 hours if needed for cough PROMETHAZINE-CODEINE 19160359875 No Long er Active Blaine HERNANDEZ Active CHERATUSSIN AC 100-10 MG/5ML SYRP 1 tsp by mouth every 4 hours as needed for cough GUAIFENESIN-CODEINE 85763576693 No Longer Activ e Blaine HERNANDEZ Active ZITHROMAX Z-REYNA 250 MG TABS 2 today, then 1 daily for 4 days 201 08/30/03 AZITHROMYCIN 51642161318 No Longer Active Columba Parrish Act nael ZITHROMAX 250 MG TAB 2 po today, then 1 po q days 2-5 AZITHROMYCIN 02994619804 No Longer Active Carlton Hu MD Acti ve ZITHROMAX Z-REYNA 250 MG TABS 2 today, then 1 daily for 4 days 201 08/07/20 AZITHROMYCIN 89999080486 No Longer Active Columba Parrish Act nael AUGMENTIN 875-125 MG TAB 1 po BID x 10 days AMOXICILLIN- POT CLAVULANATE 01412531836 No Longer Active Diya De Guzman APRN Active ZITHROMAX 250 MG TAB 2 po today, then 1 po q days 2-5 AZITHROMYCIN 25685224839 No Longer Active Carlton Hu MD Acti ve TRAMADOL HCL 50 MG TABS 1 po tid with ES Tylenol TRAMADOL HCL 40279941435 Active Carlton Hu MD Active PREMARIN 0.625 MG TABS TAKE 1 TAB BY MOUTH DAILY 07/25 ESTROGENS CONJUGATED 38580581782 No Longer Active Ridge Bess DO Active CYMBALTA 30 MG CPEP 1 cap by mouth daily DULOXE SNEHA HCL 95313883281 No Longer Active Ridge Bess DO Active AMOXICILLIN 500 MG CAP 1 tab by mouth 3 times daily x 10 days 20 14/04/28 AMOXICILLIN 32295910682 No Longer Active Carlton Hu MD Active AMOXICILLIN 500 MG CAP 1 tab by mouth 3 times daily x 10 days 20 13/03/08 AMOXICILLIN 19564458609 No Longer Active Carlton Hu MD Active PROMETHAZINE-CODEINE 6.25-10 MG/5ML SYRP 1 tsp by mouth ever y 8 hours prn cough PROMETHAZINE-CODEINE 02428066059 No Longer Active Robert Hu MD Active MEDROL (REYNA) 4 MG TABS 6 pills x 1 day, then 5 pill s x 1 day then 4 pills x 1 day, then 3 pills x 1 day, then 2 pills x 1 day, then 1 pill x 1 day, then stop METHYLPREDNISOLONE 75345696180 No Longer Active Parris Mora MD Active AZITHROMYCIN 250 MG TABS 2 po qd x 1 day, then 1 po qd x 4 days AZITHROMYCIN 96264979623 No Longer Active Perez Mora MD Active SYMBICORT 160-4.5 MCG/ACT AERO 2 puffs bid with rinse after 2011 BUDESONIDE-FORMOTEROL FUMARATE 83323938399 No Longer Active Perez Mora MD Active LYRICA 75 MG CAPS TAKE 1 CAPSULE BY MOUTH TWICE DAILY 2013 PREGABALIN 72915538721 No Longer Active Carlton Hu MD Active LYRICA 100 MG CAPS Take 1 tab po BID for fibromyalgia PREGABALIN 00870638196 Active Carlton Hu MD Active TOPAMAX 25 MG TABS 1 qHS x 1 week, then 1 BID x 1 week, then 1 qAM and 2 qHS x 1 week, then 2 BID (migraine prevention) TOPIRAMAT E 84728757332 No Longer Active Jerica FUENTES Active TOPAMAX 50 MG TABS take 1 tab po BID for migraines. 12/07/10 TOPIRAMATE 73608734813 No Longer Active Jerica AGUILARA Ac tive TOPAMAX 100 MG TABS Take 1 tablet po bid TOPIRAMATE 4999 5384189 Active Elise Whitmore APRN Active TRIAMCINOLONE ACETONIDE 0.1 % CREA apply three times daily prn r beatrice TRIAMCINOLONE ACETONIDE 96994807359 No Longer Active Carlton Hu MD Active PAXIL 40 MG TAB take 1 tab po qday for depression PAROXETINE HCL 00478410753 Active Elise Whitmore APRN Active CHERATUSSIN AC 100-10 MG/5ML SYRP 5ml po q6hr PRN Cough GUAIFENESIN-CODEINE 80230841087 No Longer Active Carlton Hu MD Active MEDROL (REYNA) 4 MG TABS 6 tabs on day 1, 5 tabs on d ay 2, 4 tabs on day 3, 3 tabs on day 4, 2 tabs on day 5, 1 tab on day 6 METHYLPREDNISOLONE 57529653677 No Longer Active Perez Mora MD Active AZITHROMYCIN 250 MG TABS 2 po qd x 1 day, then 1 po qd x 4 days AZITHROMYCIN 41164422472 No Longer Active Perez Mora MD Active PROPRANOLOL HCL 60 MG TABS 1 PO Q D PROPRANOL OL HCL 15992218149 No Longer Active Perez Mora MD Active CHERATUSSIN AC 100-10 MG/5ML SYRP take one tsp po Q 6hours prn c ough GUAIFENESIN-CODEINE 61526759164 No Longer Active Perez Means Active AUGMENTIN 875-125 MG TAB 1 tab by mouth twice daily with food 20 12/03/31 AMOXICILLIN-POT CLAVULANATE 30047695160 No Longer Active Chanel Mora MD Active CHERATUSSIN AC 100-10 MG/5ML SYRP 1 tsp by mouth every 4 hours as needed for cough GUAIFENESIN-CODEINE 75227113578 No Longer Activ e Hugo Restrepo MD Active ACETAMINOPHEN-CODEINE #3 300-30 MG TABS 1 PO Q 4-6 HRS PRN PAIN ACETAMINOPHEN-CODEINE 65813743690 No Longer Active Hugo Restrepo MD Active LEVAQUIN 500 MG TABS take one po QD LEVOFLOXACI N 02050434285 No Longer Active Griffin HERNANDEZ Active PREDNISONE 20 MG TAB Take 3 tabs daily for 3 days , 2 tabs daily for 3 days, 1 tab daily for 3 days, 1/2 tab daily for 3 days P REDNISONE 95356647998 No Longer Active Carlton Hu MD Active AVELOX 400 MG TABS 1 tab by mouth daily MOXIFLO XACIN HCL 59848216205 No Longer Active Carlton Hu MD Active CHERATUSSIN AC 100-10 MG/5ML SYRP 1 tsp by mouth every 4 hours as needed for cough GUAIFENESIN-CODEINE 87738905362 No Longer Activ e Hugo Restrepo MD Active AVELOX 400 MG TABS 1 tab by mouth daily MOXIFLO XACIN HCL 97228408832 No Longer Active Marcy De La Rosa MD PhD Active TERBINAFINE HCL 250 MG TABS 1 qDay TERBINAF INE HCL 37960588368 No Longer Active Marcy De La Rosa MD PhD Active CHERATUSSIN AC 100-10 MG/5ML SYRP 1 tsp by mouth every 4 hours as needed for cough GUAIFENESIN-CODEINE 76240687789 No Longer Activ e Marcy De La Rosa MD PhD Active AVELOX 400 MG TABS 1 tab by mouth daily MOXIFLO XACIN HCL 28414811602 No Longer Active Marcy De La Rosa MD PhD Active HYDROCODONE-ACETAMINOPHEN 5-325 MG TABS 1 po q 6hr PRN cough 201 05/09/16 HYDROCODONE-ACETAMINOPHEN 99939411903 No Longer Active Marcy De La Rosa MD PhD Active PREDNISONE 20 MG TAB 2 tabs daily for 3 days, 1 t ab daily for 3 days, 1/2 tab daily for 2 days PREDNISONE 00338460714 No Longer Active Carlton Hu MD Active CEFDINIR 300 MG CAPS by mouth twice a day CEFDI ODILIA 55742223767 No Longer Active Carlton Hu MD Active HYDROCHLOROTHIAZIDE 25 MG TABS 1 TAB PO DAILY H YDROCHLOROTHIAZIDE 98506551178 Active Carlton Hu MD Active ACETAMINOPHEN-CODEINE #3 300-30 MG TABS 1 tablet po q 4-6hrs prn pain ACETAMINOPHEN-CODEINE 60156596602 No Longer Active Ridge Bess DO Active ZITHROMAX 250 MG TAB 2 po today, then 1 po q days 2-5 AZITHROMYCIN 01075416279 No Longer Active Carlton Hu MD Acti ve CHERATUSSIN AC 100-10 MG/5ML SYRP take 1 tsp po q4-6 hours prn c ough GUAIFENESIN-CODEINE 38918123825 No Longer Active Carlton Hu MD Active ACETAMINOPHEN-CODEINE #3 300-30 MG TABS 1 PO Q 4-6 HR PRN PAIN 2 ACETAMINOPHEN-CODEINE 25681634774 No Longer Active Carlton rich MD Active LORTAB 7.5-500 MG/15ML ELIX 7.5 ml po q 4 hour prn cough HYDROCODONE-ACETAMINOPHEN 21578135208 No Longer Active Carlton Hu MD Active PREDNISONE 20 MG TAB 1 po bid 3 days, then 1 po q day 3 days 201 05/03/07 PREDNISONE 87712887230 No Longer Active Carlton Hu MD Active ELMIRON 100 MG CAPS 2 tablets in the am and 1 tablet at hs PENTOSAN POLYSULFATE SODIUM 11353027962 Active Carlton Hu MD Ac tive CEFDINIR 300 MG CAPS by mouth twice a day CEFDI ODILIA 01175187284 No Longer Active Carlton Hu MD Active CEFDINIR 300 MG CAPS by mouth twice a day CEFDI ODILIA 50136915161 No Longer Active Carlton Hu MD Active CEFDINIR 300 MG CAPS by mouth twice a day CEFDI ODILIA 55684925676 No Longer Active Carlton Hu MD Active TESSALON PERLES 100 MG CAP 1 tablet by mouth 3 times daily a s needed for cough BENZONATATE 65495681147 No Longer Active Carlton bustamante MD Active CEFDINIR 300 MG CAPS by mouth twice a day CEFDI ODILIA 33421040980 No Longer Active Carlton Hu MD Active ZITHROMAX Z-REYNA 250 MG TABS 2 today, then 1 daily for 4 days 201 04/09/17 AZITHROMYCIN 30440472695 No Longer Active Hugo Restrepo MD Active TESSALON PERLES 100 MG CAP 1 tablet by mouth 3 times daily a s needed for cough TESSALON PERLES 100 MG CAP 056104 BENZONATATE I nactive PREDNISONE 20 MG TAB 1 po bid 3 days, then 1 po q day 3 days 201 05/03/07 PREDNISONE 20 MG TAB 112766 PREDNISONE Inactive LORTAB 7.5-500 MG/15ML ELIX 7.5 ml po q 4 hour prn cough LORTAB 7.5-500 MG/15ML ELIX HYDROCODONE-ACETAMINOPHEN Inacti ve ACETAMINOPHEN-CODEINE #3 300-30 MG TABS 1 PO Q 4-6 HR PRN PAIN 2 ACETAMINOPHEN-CODEINE #3 300-30 MG TABS 001217 ACETAMIN OPHEN-CODEINE Inactive CHERATUSSIN AC 100-10 MG/5ML SYRP take 1 tsp po q4-6 hours prn c ough CHERATUSSIN AC 100-10 MG/5ML SYRP 525241 GUAIFENESIN-CO DEINE Inactive ACETAMINOPHEN-CODEINE #3 300-30 MG TABS 1 tablet po q 4-6hrs prn pain ACETAMINOPHEN-CODEINE #3 300-30 MG TABS 926626 ACETAMIN OPHEN-CODEINE Inactive HYDROCODONE-ACETAMINOPHEN 5-325 MG TABS 1 po q 6hr PRN cough 201 05/09/16 HYDROCODONE-ACETAMINOPHEN 5-325 MG TABS 090877 HYDROCODONE-ACETAMINOPHEN Inactive AVELOX 400 MG TABS 1 tab by mouth daily A VELOX 400 MG TABS 423313 MOXIFLOXACIN HCL Inactive CHERATUSSIN AC 100-10 MG/5ML SYRP 1 tsp by mouth every 4 hours as needed for cough CHERATUSSIN AC 100-10 MG/5ML SYRP 563432 GUAIFENESIN-CODEINE Inactive TERBINAFINE HCL 250 MG TABS 1 qDay TERBINAFINE HCL 250 MG TABS 508373 TERBINAFINE HCL Inactive CHERATUSSIN AC 100-10 MG/5ML SYRP 1 tsp by mouth every 4 hours as needed for cough CHERATUSSIN AC 100-10 MG/5ML SYRP 679830 GUAIFENESIN-CODEINE Inactive ACETAMINOPHEN-CODEINE #3 300-30 MG TABS 1 PO Q 4-6 HRS PRN PAIN ACETAMINOPHEN-CODEINE #3 300-30 MG TABS 604444 ACETAMINOPHEN-CODEIN E Inactive CHERATUSSIN AC 100-10 MG/5ML SYRP 1 tsp by mouth every 4 hours as needed for cough CHERATUSSIN AC 100-10 MG/5ML SYRP 125603 GUAIFENESIN-CODEINE Inactive AUGMENTIN 875-125 MG TAB 1 tab by mouth twice daily with food 20 12/03/31 AUGMENTIN 875-125 MG TAB 953848 AMOXICILLIN-POT CLAVULA EFE Inactive CHERATUSSIN AC 100-10 MG/5ML SYRP take one tsp po Q 6hours prn c ough CHERATUSSIN AC 100-10 MG/5ML SYRP 793940 GUAIFENESIN-CO DEINE Inactive PROPRANOLOL HCL 60 MG TABS 1 PO Q D P ROPRANOLOL HCL 60 MG TABS 436846 PROPRANOLOL HCL Inactive TOPAMAX 50 MG TABS take 1 tab po BID for migraines. 12/07/10 TOPAMAX 50 MG TABS 028566 TOPIRAMATE Inactive TOPAMAX 25 MG TABS 1 qHS x 1 week, then 1 BID x 1 week, then 1 qAM and 2 qHS x 1 week, then 2 BID (migraine prevention) TOPAMAX 2 5 MG TABS 566424 TOPIRAMATE Inactive LYRICA 75 MG CAPS TAKE 1 CAPSULE BY MOUTH TWICE DAILY LYRICA 75 MG CAPS PREGABALIN Inactive SYMBICORT 160-4.5 MCG/ACT AERO 2 puffs bid with rinse after 2011 SYMBICORT 160-4.5 MCG/ACT AERO BUDESONIDE-FORMOT SÁNCHEZ FUMARATE Inactive PROMETHAZINE-CODEINE 6.25-10 MG/5ML SYRP 1 tsp by mouth ever y 8 hours prn cough PROMETHAZINE-CODEINE 6.25-10 MG/5ML SYRP 888741 PROMETHAZINE-CODEINE Inactive CYMBALTA 30 MG CPEP 1 cap by mouth daily CYMBALTA 30 MG CPEP 466753 DULOXETINE HCL Inactive PREMARIN 0.625 MG TABS TAKE 1 TAB BY MOUTH DAILY 07/25 PREMARIN 0.625 MG TABS ESTROGENS CONJUGATED Inactive CHERATUSSIN AC 100-10 MG/5ML SYRP 1 tsp by mouth every 4 hours as needed for cough CHERATUSSIN AC 100-10 MG/5ML SYRP 427407 GUAIFENESIN-CODEINE Inactive PROMETHAZINE-CODEINE 6.25-10 MG/5ML SYRP 1 tsp by mout h every 6 hours if needed for cough PROMETHAZINE-CODEINE 6.25-10 MG/5ML SYRP 170251 PROMETHAZINE-CODEINE Inactive CHERATUSSIN AC 100-10 MG/5ML SYRP 1 tsp by mouth every 4 hours as needed for cough CHERATUSSIN AC 100-10 MG/5ML SYRP 793656 GUAIFENESIN-CODEINE Inactive FLUTICASONE PROPIONATE 50 MCG/ACT SUSP 1 to 2 sprays each no stril daily FLUTICASONE PROPIONATE 50 MCG/ACT SUSP 9378287 FLUTICASONE PROPIONATE Inactive PREDNISONE 20 MG ORAL TABS 3 tab PO qd x 2d, 2 tab PO qd x 2d, 1 tab PO qd x 2d, 1/2 tab PO qd x 2d PREDNISONE 20 MG ORAL TABS 610226 PREDNISONE Inactive LEVOFLOXACIN 500 MG ORAL TABS 1 tab PO daily x 10 days LEVOFLOXACIN 500 MG ORAL TABS 443534 LEVOFLOXACIN Inactive CYCLOBENZAPRINE HCL 10 MG TABS 1 tablet by mouth BID prn had cherelle n CYCLOBENZAPRINE HCL 10 MG TABS 539145 CYCLOBENZAPRINE H CL Inactive ZOCOR 40 MG TAB 1 tab by mouth daily ZOCOR 40 M G TAB 048622 SIMVASTATIN Inactive TUSSIONEX PENNKINETIC ER 10-8 MG/5ML [...] empty FLUTICASONE PROPIONATE 50 MCG/ACT SUSP 17 20474 FLUTICASONE PROPIONATE Inactive TUSSIONEX PENNKINETIC ER 10-8 MG/5ML ORAL LQCR 5 mL PO q 12 hrs PRN cough TUSSIONEX PENNKINETIC ER 10-8 MG/5ML ORAL LQCR HYDROCOD POLST-CHLORPHEN POLST Inactive ZITHROMAX Z-REYNA 250 MG TABS 2 today, then 1 daily for 4 days 201 04/09/17 ZITHROMAX Z-REYNA 250 MG TABS 4078932 AZITHROMYCIN Inac tive CEFDINIR 300 MG CAPS [...] q days 2-5 ZITHROMAX 250 MG TAB 7738256 AZITHROMYCIN Inactive CEFDINIR 300 MG CAPS by mouth twice a day CEFDINIR 300 MG CAPS 20020704 CEFDINIR Inactive PREDNISONE 20 MG TAB 2 tabs daily for 3 days, 1 t ab daily for 3 days, 1/2 tab daily for 2 days PREDNISONE 20 MG TAB 266343 PREDNISON E Inactive AVELOX 400 MG TABS 1 tab by mouth daily A VELOX 400 MG TABS 652854 MOXIFLOXACIN HCL Inactive AVELOX 400 MG TABS 1 tab by mouth daily A VELOX 400 MG TABS 330558 MOXIFLOXACIN HCL Inactive PREDNISONE 20 MG TAB Take 3 tabs daily for 3 days , 2 tabs daily for 3 days, 1 tab daily for 3 days, 1/2 tab daily for 3 days PREDNISONE 20 MG TAB 518652 PREDNISONE Inactive LEVAQUIN 500 MG TABS take one po QD LEVAQUIN 50 0 MG TABS 840489 LEVOFLOXACIN Inactive AZITHROMYCIN 250 MG TABS 2 po qd x 1 day, then 1 po qd x 4 days AZITHROMYCIN 250 MG TABS 5498419 AZITHROMYCIN Inactiv e MEDROL (REYNA) 4 MG TABS 6 tabs on day 1, 5 tabs on d ay 2, 4 tabs on day 3, 3 tabs on day 4, 2 tabs on day 5, 1 tab on day 6 MEDROL (REYNA) 4 MG TABS 768326 METHYLPREDNISOLONE Inactive CHERATUSSIN AC 100-10 MG/5ML SYRP 5ml po q6hr PRN Cough CHERATUSSIN AC 100-10 MG/5ML SYRP 891032 GUAIFENESIN-CODEINE Inacti ve TRIAMCINOLONE ACETONIDE 0.1 % CREA apply three times daily prn r beatrice TRIAMCINOLONE ACETONIDE 0.1 % CREA 1980329 TRIAMCINOLONE ACETONIDE Inactive AZITHROMYCIN 250 MG TABS 2 po qd x 1 day, then 1 po qd x 4 days AZITHROMYCIN 250 MG TABS 5452222 AZITHROMYCIN Inactiv e MEDROL (REYNA) 4 MG TABS 6 pills x 1 day, then 5 pill s x 1 day then 4 pills x 1 day, then 3 pills x 1 day, then 2 pills x 1 day, then 1 pill x 1 day, then stop MEDROL (REYNA) 4 MG TABS 503059 METHYLPREDNISOLONE Inactive AMOXICILLIN 500 MG CAP 1 tab by mouth 3 times daily x 10 days 20 13/03/08 AMOXICILLIN 500 MG CAP 052872 AMOXICILLIN Inactive AMOXICILLIN 500 MG CAP 1 tab by mouth 3 times daily x 10 days 20 14/04/28 AMOXICILLIN 500 MG CAP 281853 AMOXICILLIN Inactive ZITHROMAX 250 MG TAB 2 po today, then 1 po q days 2-5 ZITHROMAX 250 MG TAB 8100700 AZITHROMYCIN Inactive AUGMENTIN 875-125 MG TAB 1 po BID x 10 days AUGMENTIN 875- 125 MG TAB 784668 AMOXICILLIN-POT CLAVULANATE Inactive ZITHROMAX Z-REYNA 250 MG TABS 2 today, then 1 daily for 4 days 201 08/07/20 ZITHROMAX Z-REYNA 250 MG TABS 0103568 AZITHROMYCIN Inac tive ZITHROMAX 250 MG TAB 2 po today, then 1 po q days 2-5 ZITHROMAX 250 MG TAB 6590836 AZITHROMYCIN Inactive ZITHROMAX Z-REYNA 250 MG TABS 2 today, then 1 daily for 4 days 201 08/30/03 ZITHROMAX Z-REYNA 250 MG TABS 9505059 AZITHROMYCIN Inac tive CEFDINIR 300 MG CAPS 1 po BID x 10 days C EFDINIR 300 MG CAPS 896146 CEFDINIR Inactive ZITHROMAX 250 MG TAB 2 po today, then 1 po q days 2-5 ZITHROMAX 250 MG TAB 9280314 AZITHROMYCIN Inactive LEVAQUIN 500 MG TAB 1 tablet by mouth daily LEVAQUIN 500 MG TAB 902316 LEVOFLOXACIN Inactive SINGULAIR 10 MG TABS 1 po qday for allergies 2 SINGULAIR 10 MG TABS 435342 MONTELUKAST SODIUM Inactive AMOXICILLIN 500 MG CAPS 2 po BID x 10 days AMOXICILLIN 500 MG CAPS 426299 AMOXICILLIN Inactive PREDNISONE 20 MG TAB 2 tabs daily for 3 days, 1 t ab daily for 3 days, 1/2 tab daily for 2 days PREDNISONE 20 MG TAB 575867 PREDNISON E Inactive ZITHROMAX Z-REYNA 250 MG TABS 2 today, then 1 daily for 4 days 201 09/29/14 ZITHROMAX Z-REYNA 250 MG TABS 5197674 AZITHROMYCIN Inac tive Vital Signs Date Name [...] Measured Encounters Code Encounter Date Provider Facility CPT-81294 Level 3 Est. Patient 13:42:38 CDT Italo [facility] CPT-53739 Level 3 Est. Patient 13:23:51 CDT Diya cobian [facility] CPT-03633 Level 3 Est. Patient 14:22:19 [employer]PERVIS[employer]LOOR [employer] Diya cobian [facility] CPT-65678 Level 3 Est. Patient 10:11:46 CDT Carlton rich MD [facility] CPT-59790 Level 3 Est. Patient 17:29:43 CDT Italo [facility] CPT-57365 Level 3 Est. Patient 11:58:06 CDT Elise Cesar chelly BILL [facility] CPT-87074 Level 4 Est. Patient 14:36:51 CDT Carlton rich MD [facility]-47846 Level 3 Est. 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 Patient 09:45:49 SUPERVISOR FLOOR [employer]SEMBLY Carlton rich MD [facility] [place][note 2]-56800 Level 3 Est. Patient 13:19:20 CDT Carlton rich MD [facility] [place][note 2]-45638 Level 3 Est. Patient 13:06:43 CDT Ridge tam DO [facility] CPT-93188 Level 3 Est. Patient 10:03:07 CDT Perez Mora MD [facility] [place][note 2]-06316 Level 3 Est. Patient 19:50:35 SUPERVISOR [employer]LOOR [employer]SEMBLY Carlton rich MD [facility] CPT-07668 Level 4 Est. Patient 18:05:01 SUPERVISOR FLOOR [employer]SEMBLY Carlton rich MD [facility] [place][note 2]-45600 Level 3 Est. Patient 10:45:55 SUPERVISOR FLOOR ASSEMBLY Hguo Restrepo MD [facility] [place][note 2]-95312 Level 3 Est. Patient 14:12:49 CDT Griffin lincoln [facility] [place]-69887 Level 3 Est. Patient 17:37:24 CDT Carlton rich MD [facility] [place][note 2]-77752 Level 3 Est. Patient 16:51:54 CDT Carlton rich MD [facility] [place][note 2]-19830 Level 3 Est. Patient 12:18:11 CDT Hugo Restrepo MD [facility] [place][note 2]-89678 Level 3 Est. Patient 11:30:25 CDT Marcy crisostomo MD PhD [facility] CPT-43306 Level 3 Est. 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 Patient 16:31:06 SUPERVISOR FLOOR [employer]SEMBLY Carlton rich MD [facility] CPT-42469 Level 3 Est. Patient 16:23:24 SUPERVISOR FLOOR ASSEMBLY Ridge tam [facility] CPT-40618 Level 3 Est. Patient 12:34:12 CDT Carlton rich MD [facility] CPT-13139 Level 2 Est. Patient 15:43:33 CDT Robi armstrong MD [facility] CPT-46023 Level 4 Est. Patient 14:04:44 CDT Carlton rich MD [facility] CPT-53302 Level 3 Est. Patient 05:47:59 CDT Ridge tam [facility] CPT-66785 Level 3 Est. Patient 13:12:53 SUPERVISOR [employer]LOOR [employer]SEMBLY Carlton rich MD [facility] CPT-07192 Level 3 Est. Patient 14:26:53 CDT Hugo Restrepo MD [facility] Procedures Code Procedure Name Date Entry Date Standard Desc ription CPT-J0696 Rocephin 1gm Inj Solr 14:32:13 CDT CPT-J1020 Depo Medrol 60 mg (Methyl Prednisolone A cetate) 14:32:13 CDT CPT-J1100 Decadron 6mg (Dexamethasone) 14:32:13 CDT 2 CPT-19580 Hip bilat min 2V w AP pelvis 13:16:20 CDT 2 CPT-83115 Pelvis only 13:07:33 CDT CPT-63793 Spec Collection and Handling Fee 11:25:12 C DT CPT-71084 Fluzone Quadrivalent Intramuscular Suspe nsion 0.5 ML 14:31:55 CDT CPT-34685 Abx/Therapy Injection 13:28:47 [employer] CPT-J2930 Solu Medrol 125 mg (Methyl Prednisolone Sodium Succinate) 12:00:47 [employer] CPT-71959 Venipuncture Draw Fee 11:33:31 CDT CPT-98466 EKG Trac and Interp 11:21:09 CDT CPT-43501 Chest 2V Frontal and Lat 11:21:09 CDT 12/15 CPT-94740 Venipuncture Draw Fee 08:02:34 CDT CPT-92460 Chest 2V Frontal and Lat 05:47:59 CDT 06/05
--- OUTSIDE RECORDS SUMMARY | 2019-10-08 08:09 | XMS REPORT | Clinical Summary ---
Author Author Caitlin, Juliana Martinez Organization [facility] Address Unknown Phone Unavailable Allergies, Adverse [...] health care facility MAMMOGRAM, ABNORMAL 793.80 Active Cartlon linda MD Abnormal mammogram, unspecified CHEST WALL [...] sites Sinusitis 473.9 Active Diya De Guzman APRN Unspecified sinusitis (chronic) Bronchitis-Acute 466.0 Active Carlton Hu MD Acute bronchitis BRONCHITIS ICD-490 Inactive Hugo Restrepo MD 201 [...] Generic Name NDC Status Provider Patient Instruction CHERATUSSIN AC 100-10 MG/5ML SYRP 1 tsp by mouth every 4 hours as needed for cough GUAIFENESIN-CODEINE 14429306980 Active Elise gilmore APRN Active ZITHROMAX 250 MG TAB 2 po today, then 1 po q days 2-5 AZITHROMYCIN 40950057765 No Longer Active Carlton Hu MD Acti ve ZITHROMAX Z-REYNA 250 MG TABS 2 today, then 1 daily for 4 days 201 08/07/20 AZITHROMYCIN 80434602094 No Longer Active Columba Raida Act nael FLUTICASONE PROPIONATE 50 MCG/ACT SUSP 1 to 2 sprays each no stril daily FLUTICASONE PROPIONATE 56194132873 Active Jillina Daphnezel l [employer] E[employer] HELPER Active PROMETHAZINE-CODEINE 6.25-10 MG/5ML SYRP 1 tsp by mout h every 6 hours if needed for cough PROMETHAZINE-CODEINE 90571101938 Active Robert Hu MD Active AUGMENTIN 875-125 MG TAB 1 po BID x 10 days AMOXICILLIN- POT CLAVULANATE 41273998778 No Longer Active Diya Guerrerol [employer]OM[employer] E[employer]OR HELPER Active ZITHROMAX 250 MG TAB 2 po today, then 1 po q days 2-5 AZITHROMYCIN 12704075542 No Longer Active Carlton Hu MD Acti ve TRAMADOL HCL 50 MG TABS 1 po tid with ES Tylenol TRAMADOL HCL 45673166062 Active Carlton Hu MD Active PREMARIN 0.625 MG TABS TAKE 1 TAB BY MOUTH DAILY 07/25 ESTROGENS CONJUGATED 56510775972 No Longer Active Ridge Bess DO Active CYMBALTA 30 MG CPEP 1 cap by mouth daily DULOXE SNEHA HCL 87402551627 No Longer Active Ridge Bess DO Active AMOXICILLIN 500 MG CAP 1 tab by mouth 3 times daily x 10 days 20 14/04/28 AMOXICILLIN 30053725625 No Longer Active Carlton Hu MD Active AMOXICILLIN 500 MG CAP 1 tab by mouth 3 times daily x 10 days 20 13/03/08 AMOXICILLIN 67809531849 No Longer Active Carlton Hu MD Active CHERATUSSIN AC 100-10 MG/5ML SYRP 1 tsp by mouth every 4 hours as needed for cough GUAIFENESIN-CODEINE 78900182072 Active Carlton banks MD Active CYCLOBENZAPRINE HCL 10 MG TABS 1 tablet by mouth BID prn had pain 2 CYCLOBENZAPRINE HCL 95459928638 Active Carlton Hu MD A ctive PROMETHAZINE-CODEINE 6.25-10 MG/5ML SYRP 1 tsp by mouth ever y 8 hours prn cough PROMETHAZINE-CODEINE 85918883883 No Longer Active Robert Hu MD Active MEDROL (REYNA) 4 MG TABS 6 pills x 1 day, then 5 pill s x 1 day then 4 pills x 1 day, then 3 pills x 1 day, then 2 pills x 1 day, then 1 pill x 1 day, then stop METHYLPREDNISOLONE 42018352809 No Longer Active Parris Mora MD Active AZITHROMYCIN 250 MG TABS 2 po qd x 1 day, then 1 po qd x 4 days AZITHROMYCIN 47571300715 No Longer Active Perez Mora MD Active SYMBICORT 160-4.5 MCG/ACT AERO 2 puffs bid with rinse after 2011 BUDESONIDE-FORMOTEROL FUMARATE 36734397877 No Longer Active Perez Mora MD Active LYRICA 75 MG CAPS TAKE 1 CAPSULE BY MOUTH TWICE DAILY 2013 PREGABALIN 77505983024 No Longer Active Carlton Hu MD Active LYRICA 100 MG CAPS Take 1 tab po BID for fibromyalgia PREGABALIN 58788489973 Active Carlton Hu MD Active TOPAMAX 25 MG TABS 1 qHS x 1 week, then 1 BID x 1 week, then 1 qAM and 2 qHS x 1 week, then 2 BID (migraine prevention) TOPIRAMAT E 48259351099 No Longer Active Jerica FUENTES Active TOPAMAX 50 MG TABS take 1 tab po BID for migraines. 12/07/10 TOPIRAMATE 12283417907 No Longer Active Jerica FUENTES Ac tive TOPAMAX 100 MG TABS Take 1 tablet po bid TOPIRAMATE 4999 7095666 Active Carlton Hu MD Active TRIAMCINOLONE ACETONIDE 0.1 % CREA apply three times daily prn r beatrice TRIAMCINOLONE ACETONIDE 72026515687 No Longer Active Carlton Hu MD Active PAXIL 40 MG TAB take 1 tab po qday for depression PAROXETINE HCL 54133184625 Active Elise Whitmore [employer] HELPER Active CHERATUSSIN AC 100-10 MG/5ML SYRP 5ml po q6hr PRN Cough GUAIFENESIN-CODEINE 29193825268 No Longer Active Carlton Hu MD Active MEDROL (REYNA) 4 MG TABS 6 tabs on day 1, 5 tabs on d ay 2, 4 tabs on day 3, 3 tabs on day 4, 2 tabs on day 5, 1 tab on day 6 METHYLPREDNISOLONE 51173285907 No Longer Active Perez Mora MD Active AZITHROMYCIN 250 MG TABS 2 po qd x 1 day, then 1 po qd x 4 days AZITHROMYCIN 24321165088 No Longer Active Perez Mora MD Active PROPRANOLOL HCL 60 MG TABS 1 PO Q D PROPRANOL OL HCL 06807148471 No Longer Active Perez Mora MD Active CHERATUSSIN AC 100-10 MG/5ML SYRP take one tsp po Q 6hours prn c ough GUAIFENESIN-CODEINE 20527495596 No Longer Active Perez Means Active AUGMENTIN 875-125 MG TAB 1 tab by mouth twice daily with food 12/03/31 AMOXICILLIN-POT CLAVULANATE 79197673361 No Longer Active Chanel Mora MD Active CHERATUSSIN AC 100-10 MG/5ML SYRP 1 tsp by mouth every 4 hours as needed for cough GUAIFENESIN-CODEINE 63276156453 No Longer Activ e Hugo Restrepo MD Active ACETAMINOPHEN-CODEINE #3 300-30 MG TABS 1 PO Q 4-6 HRS PRN PAIN ACETAMINOPHEN-CODEINE 09672205944 No Longer Active Hugo Restrepo MD Active LEVAQUIN 500 MG TABS take one po QD LEVOFLOXACI N 24815910856 No Longer Active Griffin HERNANDEZ Active PREDNISONE 20 MG TAB Take 3 tabs daily for 3 days , 2 tabs daily for 3 days, 1 tab daily for 3 days, 1/2 tab daily for 3 days P REDNISONE 10323783522 No Longer Active Carlton Hu MD Active AVELOX 400 MG TABS 1 tab by mouth daily MOXIFLO XACIN HCL 20805431764 No Longer Active Carlton Hu MD Active CHERATUSSIN AC 100-10 MG/5ML SYRP 1 tsp by mouth every 4 hours as needed for cough GUAIFENESIN-CODEINE 27553630171 No Longer Activ e Hugo Restrepo MD Active AVELOX 400 MG TABS 1 tab by mouth daily MOXIFLO XACIN HCL 19971746410 No Longer Active Marcy De La Rosa MD PhD Active TERBINAFINE HCL 250 MG TABS 1 qDay TERBINAF INE HCL 79749675488 No Longer Active Marcy De La Rosa MD PhD Active CHERATUSSIN AC 100-10 MG/5ML SYRP 1 tsp by mouth every 4 hours as needed for cough GUAIFENESIN-CODEINE 04250783334 No Longer Activ e Marcy De La Rosa MD PhD Active AVELOX 400 MG TABS 1 tab by mouth daily MOXIFLO XACIN HCL 15690305615 No Longer Active Marcy De La Rosa MD PhD Active HYDROCODONE-ACETAMINOPHEN 5-325 MG TABS 1 po q 6hr PRN cough 201 05/09/16 HYDROCODONE-ACETAMINOPHEN 60704714444 No Longer Active Marcy De La Rosa MD PhD Active PREDNISONE 20 MG TAB 2 tabs daily for 3 days, 1 t ab daily for 3 days, 1/2 tab daily for 2 days PREDNISONE 89132018704 No Longer Active Carlton Hu MD Active CEFDINIR 300 MG CAPS by mouth twice a day CEFDI ODILIA 49127381506 No Longer Active Carlton Hu MD Active ZOCOR 40 MG TAB 1 tab by mouth daily SIMVASTATIN 04478227897 Active Carlton Hu MD Active HYDROCHLOROTHIAZIDE 25 MG TABS 1 TAB PO DAILY H YDROCHLOROTHIAZIDE 50759560473 Active Carlton Hu MD Active ACETAMINOPHEN-CODEINE #3 300-30 MG TABS 1 tablet po q 4-6hrs prn pain ACETAMINOPHEN-CODEINE 47433279297 No Longer Active Ridge Bess DO Active ZITHROMAX 250 MG TAB 2 po today, then 1 po q days 2-5 AZITHROMYCIN 16763189966 No Longer Active Carlton Hu MD Acti ve CHERATUSSIN AC 100-10 MG/5ML SYRP take 1 tsp po q4-6 hours prn c ough GUAIFENESIN-CODEINE 88417169720 No Longer Active Carlton Hu MD Active ACETAMINOPHEN-CODEINE #3 300-30 MG TABS 1 PO Q 4-6 HR PRN PAIN 2 ACETAMINOPHEN-CODEINE 60238502806 No Longer Active Carlton rich MD Active LORTAB 7.5-500 MG/15ML ELIX 7.5 ml po q 4 hour prn cough HYDROCODONE-ACETAMINOPHEN 47036254079 No Longer Active Carlton Hu MD Active PREDNISONE 20 MG TAB 1 po bid 3 days, then 1 po q day 3 days 201 05/03/07 PREDNISONE 70362839455 No Longer Active Carlton Hu MD Active ELMIRON 100 MG CAPS 2 tablets in the am and 1 tablet at hs PENTOSAN POLYSULFATE SODIUM 71411790034 Active Gracie [place] Active CEFDINIR 300 MG CAPS by mouth twice a day CEFDI ODILIA 46081370602 No Longer Active Carlton Hu MD Active CEFDINIR 300 MG CAPS by mouth twice a day CEFDI ODILIA 04258048990 No Longer Active Carlton Hu MD Active CEFDINIR 300 MG CAPS by mouth twice a day CEFDI ODILIA 97118692134 No Longer Active Carlton Hu MD Active TESSALON PERLES 100 MG CAP 1 tablet by mouth 3 times daily a s needed for cough BENZONATATE 45981563582 No Longer Active Carlton bustamante MD Active CEFDINIR 300 MG CAPS by mouth twice a day CEFDI ODILIA 80463192704 No Longer Active Carlton Hu MD Active ZITHROMAX Z-REYNA 250 MG TABS 2 today, then 1 daily for 4 days 201 04/09/17 AZITHROMYCIN 28480880144 No Longer Active Hugo Restrepo MD Active TESSALON PERLES 100 MG CAP 1 tablet by mouth 3 times daily a s needed for cough TESSALON PERLES 100 MG CAP 271055 BENZONATATE I nactive PREDNISONE 20 MG TAB 1 po bid 3 days, then 1 po q day 3 days 201 05/03/07 PREDNISONE 20 MG TAB 253258 PREDNISONE Inactive LORTAB 7.5-500 MG/15ML ELIX 7.5 ml po q 4 hour prn cough LORTAB 7.5-500 MG/15ML ELIX HYDROCODONE-ACETAMINOPHEN Inacti ve ACETAMINOPHEN-CODEINE #3 300-30 MG TABS 1 PO Q 4-6 HR PRN PAIN 2 ACETAMINOPHEN-CODEINE #3 300-30 MG TABS 254786 ACETAMIN OPHEN-CODEINE Inactive CHERATUSSIN AC 100-10 MG/5ML SYRP take 1 tsp po q4-6 hours prn c ough CHERATUSSIN AC 100-10 MG/5ML SYRP 997806 GUAIFENESIN-CO DEINE Inactive ACETAMINOPHEN-CODEINE #3 300-30 MG TABS 1 tablet po q 4-6hrs prn pain ACETAMINOPHEN-CODEINE #3 300-30 MG TABS 541187 ACETAMIN OPHEN-CODEINE Inactive HYDROCODONE-ACETAMINOPHEN 5-325 MG TABS 1 po q 6hr PRN cough 201 05/09/16 HYDROCODONE-ACETAMINOPHEN 5-325 MG TABS 861561 HYDROCODONE-ACETAMINOPHEN Inactive AVELOX 400 MG TABS 1 tab by mouth daily A VELOX 400 MG TABS 795335 MOXIFLOXACIN HCL Inactive CHERATUSSIN AC 100-10 MG/5ML SYRP 1 tsp by mouth every 4 hours as needed for cough CHERATUSSIN AC 100-10 MG/5ML SYRP 747887 GUAIFENESIN-CODEINE Inactive TERBINAFINE HCL 250 MG TABS 1 qDay TERBINAFINE HCL 250 MG TABS 786116 TERBINAFINE HCL Inactive CHERATUSSIN AC 100-10 MG/5ML SYRP 1 tsp by mouth every 4 hours as needed for cough CHERATUSSIN AC 100-10 MG/5ML SYRP 063454 GUAIFENESIN-CODEINE Inactive ACETAMINOPHEN-CODEINE #3 300-30 MG TABS 1 PO Q 4-6 HRS PRN PAIN ACETAMINOPHEN-CODEINE #3 300-30 MG TABS 618976 ACETAMINOPHEN-CODEIN E Inactive CHERATUSSIN AC 100-10 MG/5ML SYRP 1 tsp by mouth every 4 hours as needed for cough CHERATUSSIN AC 100-10 MG/5ML SYRP 756133 GUAIFENESIN-CODEINE Inactive AUGMENTIN 875-125 MG TAB 1 tab by mouth twice daily with food 20 12/03/31 AUGMENTIN 875-125 MG TAB 140950 AMOXICILLIN-POT CLAVULA EFE Inactive CHERATUSSIN AC 100-10 MG/5ML SYRP take one tsp po Q 6hours prn c ough CHERATUSSIN AC 100-10 MG/5ML SYRP 169250 GUAIFENESIN-CO DEINE Inactive PROPRANOLOL HCL 60 MG TABS 1 PO Q D P ROPRANOLOL HCL 60 MG TABS 074212 PROPRANOLOL HCL Inactive TOPAMAX 50 MG TABS take 1 tab po BID for migraines. 12/07/10 TOPAMAX 50 MG TABS 622967 TOPIRAMATE Inactive TOPAMAX 25 MG TABS 1 qHS x 1 week, then 1 BID x 1 week, then 1 qAM and 2 qHS x 1 week, then 2 BID (migraine prevention) TOPAMAX 2 5 MG TABS 155608 TOPIRAMATE Inactive LYRICA 75 MG CAPS TAKE 1 CAPSULE BY MOUTH TWICE DAILY LYRICA 75 MG CAPS PREGABALIN Inactive SYMBICORT 160-4.5 MCG/ACT AERO 2 puffs bid with rinse after 2011 SYMBICORT 160-4.5 MCG/ACT AERO BUDESONIDE-FORMOT SÁNCHEZ FUMARATE Inactive PROMETHAZINE-CODEINE 6.25-10 MG/5ML SYRP 1 tsp by mouth ever y 8 hours prn cough PROMETHAZINE-CODEINE 6.25-10 MG/5ML SYRP 055304 PROMETHAZINE-CODEINE Inactive CYMBALTA 30 MG CPEP 1 cap by mouth daily CYMBALTA 30 MG CPEP 647438 DULOXETINE HCL Inactive PREMARIN 0.625 MG TABS TAKE 1 TAB BY MOUTH DAILY 07/25 PREMARIN 0.625 MG TABS ESTROGENS CONJUGATED Inactive ZITHROMAX Z-REYNA 250 MG TABS 2 today, then 1 daily for 4 days 201 04/09/17 ZITHROMAX Z-REYNA 250 MG TABS 7767860 AZITHROMYCIN Inac tive CEFDINIR 300 MG CAPS [...] q days 2-5 ZITHROMAX 250 MG TAB 9498716 AZITHROMYCIN Inactive CEFDINIR 300 MG CAPS by mouth twice a day CEFDINIR 300 MG CAPS 20020704 CEFDINIR Inactive PREDNISONE 20 MG TAB 2 tabs daily for 3 days, 1 t ab daily for 3 days, 1/2 tab daily for 2 days PREDNISONE 20 MG TAB 197203 PREDNISON E Inactive AVELOX 400 MG TABS 1 tab by mouth daily A VELOX 400 MG TABS 915600 MOXIFLOXACIN HCL Inactive AVELOX 400 MG TABS 1 tab by mouth daily A VELOX 400 MG TABS 686312 MOXIFLOXACIN HCL Inactive PREDNISONE 20 MG TAB Take 3 tabs daily for 3 days , 2 tabs daily for 3 days, 1 tab daily for 3 days, 1/2 tab daily for 3 days PREDNISONE 20 MG TAB 380468 PREDNISONE Inactive LEVAQUIN 500 MG TABS take one po QD LEVAQUIN 50 0 MG TABS 446007 LEVOFLOXACIN Inactive AZITHROMYCIN 250 MG TABS 2 po qd x 1 day, then 1 po qd x 4 days AZITHROMYCIN 250 MG TABS 5412324 AZITHROMYCIN Inactiv e MEDROL (REYNA) 4 MG TABS 6 tabs on day 1, 5 tabs on d ay 2, 4 tabs on day 3, 3 tabs on day 4, 2 tabs on day 5, 1 tab on day 6 MEDROL (REYNA) 4 MG TABS METHYLPREDNISOLONE Inactive CHERATUSSIN AC 100-10 MG/5ML SYRP 5ml po q6hr PRN Cough CHERATUSSIN AC 100-10 MG/5ML SYRP 935986 GUAIFENESIN-CODEINE Inacti ve TRIAMCINOLONE ACETONIDE 0.1 % CREA apply three times daily prn r beatrice TRIAMCINOLONE ACETONIDE 0.1 % CREA 2135103 TRIAMCINOLONE ACETONIDE Inactive AZITHROMYCIN 250 MG TABS 2 po qd x 1 day, then 1 po qd x 4 days AZITHROMYCIN 250 MG TABS 5671607 AZITHROMYCIN Inactiv e MEDROL (REYNA) 4 MG TABS 6 pills x 1 day, then 5 pill s x 1 day then 4 pills x 1 day, then 3 pills x 1 day, then 2 pills x 1 day, then 1 pill x 1 day, then stop MEDROL (REYNA) 4 MG TABS METHYLPREDNISOLONE Inactive AMOXICILLIN 500 MG CAP 1 tab by mouth 3 times daily x 10 days 20 13/03/08 AMOXICILLIN 500 MG CAP 957958 AMOXICILLIN Inactive AMOXICILLIN 500 MG CAP 1 tab by mouth 3 times daily x 10 days 20 14/04/28 AMOXICILLIN 500 MG CAP 261678 AMOXICILLIN Inactive ZITHROMAX 250 MG TAB 2 po today, then 1 po q days 2-5 ZITHROMAX 250 MG TAB 1661143 AZITHROMYCIN Inactive AUGMENTIN 875-125 MG TAB 1 po BID x 10 days AUGMENTIN 875- 125 MG TAB 795624 AMOXICILLIN-POT CLAVULANATE Inactive ZITHROMAX Z-REYNA 250 MG TABS 2 today, then 1 daily for 4 days 201 08/07/20 ZITHROMAX Z-RYENA 250 MG TABS 8470844 AZITHROMYCIN Inac tive ZITHROMAX 250 MG TAB 2 po today, then 1 po q days 2-5 ZITHROMAX 250 MG TAB 0819886 AZITHROMYCIN Inactive Vital Signs Date Name Value Unit Range Description blood pressure, diastolic - 8462-4 71 mm[Hg] [...] - 3141-9 132 [lb_av] Weigh t Measured blood pressure, diastolic - 8462-4 64 mm[Hg] BP srinivasan blood pressure, systolic - 8480-6 86 mm[Hg] BP sys pulse rate E&M - 8867-4 116 /min H eart rate weight E&M - 3141-9 127 [lb_av] Weigh t Measured blood pressure, diastolic - 8462-4 72 mm[Hg] BP srinivasan blood pressure, systolic - 8480-6 108 mm[Hg] BP sys pulse rate E&M - 8867-4 79 /min H eart rate temperature E&M 98.6 [degF] Body temp erature weight E&M - 3141-9 133.6 [lb_av] Weigh t Measured Encounters Code Encounter Date Provider Facility CPT-60114 Level 3 Est. Patient 09:45:49 LAMINATION OPERATOR Carlton rich MD [facility] CPT-00952 Level 3 Est. Patient 13:19:20 CDT Carlton rich MD [facility] CPT-46338 Level 3 Est. Patient 13:06:43 CDT Ridge tam DO [facility] CPT-46334 Level 3 Est. Patient 10:03:07 CDT Perez Mora MD [facility] CPT-11850 Level 3 Est. Patient 19:50:35 LAMINATION OPERATOR Carlton rich MD [facility] CPT-15133 Level 4 Est. Patient 18:05:01 LAMINATION OPERATOR Carlton rich MD [facility]-80477 Level 3 Est. Patient 10:45:55 LAMINATION OPERATOR Hugo Restrepo MD [facility] CPT-79223 Level 3 Est. Patient 14:12:49 CDT Griffin HERNANDEZ [facility]-41091 Level 3 Est. Patient 17:37:24 CDT Carlton rich MD [facility] CPT-34687 Level 3 Est. Patient 16:51:54 CDT Carlton rich MD [facility]-86434 Level 3 Est. Patient 12:18:11 CDT Hugo Restrepo MD [facility]-52506 Level 3 Est. Patient 11:30:25 CDT Marcy crisostomo MD PhD [facility]-85425 Level 3 Est. Patient 12:00:47 LAMINATION OPERATOR Carlton rich MD [facility]-23013 Level 3 Est. Patient 16:31:06 LAMINATION OPERATOR Carlton rich MD [facility] CPT-93444 Level 3 Est. Patient 16:23:24 LAMINATION OPERATOR Ridge tam DO [facility] CPT-17793 Level 3 Est. Patient 12:34:12 CDT Carlton rich MD [facility] CPT-51170 Level 2 Est. Patient 15:43:33 CDT Robi armstrong MD [facility]-66584 Level 4 Est. Patient 14:04:44 CDT Carlton rich MD [facility] CPT-30085 Level 3 Est. Patient 05:47:59 CDT Ridge tam [facility]-35181 Level 3 Est. Patient 13:12:53 LAMINATION OPERATOR Carlton rich MD [facility] CPT-84958 Level 3 Est. Patient 14:26:53 CDT Hugo Restrepo MD [facility] Procedures Code Procedure Name Date Entry Date Standard Desc ription CPT-10491 Hip bilat min 2V w AP pelvis 13:16:20 CDT 2 CPT-64844 Pelvis only 13:07:33 CDT CPT-69699 Spec Collection and Handling Fee 11:25:12 C DT CPT-68131 Fluzone Quadrivalent Intramuscular Suspe nsion 0.5 ML 14:31:55 CDT CPT-29682 Abx/Therapy Injection 13:28:47 LAMINATION OPERATOR CPT-J2930 Solu Medrol 125 mg (Methyl Prednisolone Sodium Succinate) 12:00:47 LAMINATION OPERATOR CPT-58983 Venipuncture Draw Fee 11:33:31 CDT CPT-16722 EKG Trac and Interp 11:21:09 CDT CPT-85317 Chest 2V Frontal and Lat 11:21:09 CDT 12/15 CPT-95253 Venipuncture Draw Fee 08:02:34 CDT CPT-72485 Chest 2V Frontal and Lat 05:47:59 CDT 06/05
--- OUTSIDE RECORDS SUMMARY | 2019-10-08 08:09 | XMS REPORT | Clinical Summary ---
Author Author Caitlin, Juliana Martinez Organization [facility] Address Unknown Phone Unavailable Allergies, [...] nails Sinusitis - acute 461.9 Active Elise SERRANO Acute sinusitis, unspecified BRONCHITIS ICD-490 Inactive Hugo Restrepo MD [...] Generic Name NDC Status Provider Patient Instruction AUGMENTIN 875-125 MG ORAL TABLET 1 po BID x 10 days 20 16/03/22 AMOXICILLIN-POT CLAVULANATE [id number] Active Elise Whitmore APRN Active TERBINAFINE HCL 250 MG ORAL TABLET 1 qDay for nail fungus 7 TERBINAFINE HCL 32823099272 No Longer Active Carlton Harkins ctive TUSSIONEX PENNKINETIC ER 10-8 MG/5ML ORAL SUSPENSION E XTENDED RELEASE 5ml po q12hr PRN Cough HYDROCOD POLST-CHLORPHEN POLST 35764016451 Active Carlton Hu MD Active PREDNISONE 20 MG ORAL TABLET 1 tab twice daily for 3 d ay, then one daily for three days PREDNISONE 88882834125 Active Carlton Hu MD Active AMOXICILLIN 500 MG ORAL CAPSULE 1 cap by mouth three times a day AMOXICILLIN 13825623282 No Longer Active Carlton Hu MD Active ELMIRON 100 MG ORAL CAPSULE 2 tablets in the am and 1 tablet at hs PENTOSAN POLYSULFATE SODIUM 06849588727 No Longer Active Robert Hu MD Active MUCINEX D 60-600 MG ORAL TABLET EXTENDED RELEASE 12 HOUR 1 t ab po q am PSEUDOEPHEDRINE-GUAIFENESIN 23757023510 No Longer Act nael Carlton Hu MD Active MUCINEX DM MAXIMUM STRENGTH 60-1200 MG ORAL TABLET EXT ENDED RELEASE 12 HOUR 1 tab po q am DEXTROMETHORPHAN-GUAIFENESIN 37921910051 No Longer Active Carlton Hu MD Active TUSSIONEX PENNKINETIC ER 10-8 MG/5ML ORAL SUSPENSION E XTENDED RELEASE 5ml po q12hr PRN Cough HYDROCOD POLST-CHLORPHEN POLST 5 6710504464 No Longer Active Carlton Hu MD Active POTASSIUM CHLORIDE ER 20 MEQ ORAL TABLET EXTENDED RELE ASE Take 1 by mouth 4 times daily for 7 days POTASSIUM CHLORIDE 17593681728 No Longer Active Carlton Hu MD Active ZITHROMAX 250 MG ORAL TABLET 2 po today, then 1 po q days 2-5 20 14/09/04 AZITHROMYCIN 61939368286 No Longer Active Elise Whitmore APRN Active TUSSIONEX PENNKINETIC ER 10-8 MG/5ML ORAL SUSPENSION E XTENDED RELEASE 5 ml twice a day as needed for cough HYDROCOD POLST-CHLORPH EN POLST 77227955953 No Longer Active Elise Whitmore APRN Active MONTELUKAST SODIUM 10 MG ORAL TABLET 1 po daily for Allergy MONTELUKAST SODIUM 29364229577 Active Carlton Hu MD Ac tive TUSSIONEX PENNKINETIC ER 10-8 MG/5ML ORAL SUSPENSION E XTENDED RELEASE 5ml po q12hr PRN Cough HYDROCOD POLST-CHLORPHEN POLST 5 7445729365 No Longer Active Hugo Restrepo MD Active GABAPENTIN 100 MG ORAL CAPSULE 1 po BID for fibromyalgia GABAPENTIN 33159169410 Active Carlton Hu MD Active LYRICA 100 MG ORAL CAPSULE Take 1 tab po BID for fibromyalgia 20 11/08/21 PREGABALIN 82986638403 No Longer Active Elise Whitmore APRN Active PROAIR HFA 108 (90 Base) MCG/ACT INHALATION AEROSOL SO LUTION 2 puffs four times a day as needed ALBUTEROL SULFATE 91481564599 Active Lyndsay Whitmore APRN Active PREDNISONE 20 MG ORAL TABLET 2 tabs daily for 3 days, 1 tab daily for 3 days, 1/2 tab daily for 2 days PREDNISONE 44410120465 No Longer Active Jillina Gege KHAN Active TUSSIONEX PENNKINETIC ER 10-8 MG/5ML ORAL SUSPENSION E XTENDED RELEASE 5 mL PO q 12 hrs PRN cough HYDROCOD POLST-CHLORPHEN POLST 240160 61275 No Longer Active Jillina Frazell COMPTROLLER Active FLUTICASONE PROPIONATE 50 MCG/ACT NASAL SUSPENSION 2 s prays each nostril daily until bottle is empty FLUTICASONE PROPIONATE 396543221 99 No Longer Active Jillina Frazell COMPTROLLER Active ASMANEX 60 METERED DOSES 220 MCG/INH INHALATION AEROSO L POWDER BREATH ACTIVATED 1 puff bid with rinse after MOMETASONE FUROATE 6090112 4102 No Longer Active Jillina Frazell COMPTROLLER Active ZITHROMAX Z-REYNA 250 MG ORAL TABLET 2 today, then 1 daily for 4 d ays AZITHROMYCIN 15304441004 No Longer Active Elise Whitmore APRN Active TUSSIONEX PENNKINETIC ER 10-8 MG/5ML ORAL SUSPENSION E XTENDED RELEASE 5ml po q12hr PRN Cough HYDROCOD POLST-CHLORPHEN POLST 5 8551589119 No Longer Active Elise Whitmore APRN Active PREDNISONE 20 MG ORAL TABLET 2 tabs daily for 3 days, 1 tab daily for 3 days, 1/2 tab daily for 2 days PREDNISONE 39342841870 No Longer Active Diya De Guzman APRN Active AMOXICILLIN 500 MG ORAL CAPSULE 2 po BID x 10 days 201 09/29/08 AMOXICILLIN 01688316703 No Longer Active Jillina Gege RICEN Act nael SINGULAIR 10 MG ORAL TABLET 1 po qday for allergies 20 14/01/12 MONTELUKAST SODIUM 45663572588 No Longer Active Carlton Hu MD Active LEVAQUIN 500 MG ORAL TABLET 1 tablet by mouth daily 20 13/09/24 LEVOFLOXACIN 25447129628 No Longer Active Carlton Hu MD Acti ve FLUTICASONE PROPIONATE 50 MCG/ACT NASAL SUSPENSION 2 s prays each nostril daily for 2 weeks, then 1 spray each nostril daily. FLUTICASONE PROPIONATE 42396200411 Active Elise Whitmore APRN Active ZITHROMAX 250 MG ORAL TABLET 2 po today, then 1 po q days 2-5 20 13/08/10 AZITHROMYCIN 34502873471 No Longer Active Elise Whitmore APRN Active XANAX 0.5 MG ORAL TABLET one tablet by mouth daily prn anxiety 2015 ALPRAZOLAM 63909100702 Active Carlton Hu MD Active CYMBALTA 30 MG ORAL CAPSULE DELAYED RELEASE PARTICLES 1 cap by mouth daily for depression DULOXETINE HCL 95814336533 Active Carlton beltrán MD Active CEFDINIR 300 MG ORAL CAPSULE 1 po BID x 10 days CEFDINIR 43857792582 No Longer Active Carlton Hu MD Active ZOCOR 40 MG ORAL TABLET 1 tab by mouth daily SI MVASTATIN 46612188197 No Longer Active Carlton Hu MD Active CYCLOBENZAPRINE HCL 10 MG ORAL TABLET 1 tablet by mouth BID prn had pain CYCLOBENZAPRINE HCL 41258132908 No Longer Active Jayden Hu MD Active LEVOFLOXACIN 500 MG ORAL TABLET 1 tab PO daily x 10 days LEVOFLOXACIN 18768724635 No Longer Active Carlton Hu MD Acti ve PREDNISONE 20 MG ORAL TABLET 3 tab PO qd x 2d, 2 tab P O qd x 2d, 1 tab PO qd x 2d, 1/2 tab PO qd x 2d PREDNISONE 18945342799 No Lo nger Active Carlton Hu MD Active FLUTICASONE PROPIONATE 50 MCG/ACT NASAL SUSPENSION 1 t o 2 sprays each nostril daily FLUTICASONE PROPIONATE 24398159237 No Longer Ac tive Blaine HERNANDEZ Active CHERATUSSIN AC 100-10 MG/5ML ORAL SYRUP 1 tsp by mouth every 4 hours as needed for cough GUAIFENESIN-CODEINE 00131663232 No Longe r Active Blaine HERNANDEZ Active PROMETHAZINE-CODEINE 6.25-10 MG/5ML ORAL SYRUP 1 tsp b y mouth every 6 hours if needed for cough PROMETHAZINE-CODEINE 13296908256 No Longer Active Blaine HERNANDEZ Active CHERATUSSIN AC 100-10 MG/5ML ORAL SYRUP 1 tsp by mouth every 4 hours as needed for cough GUAIFENESIN-CODEINE 39823609019 No Longe r Active Blaine HERNANDEZ Active ZITHROMAX Z-REYNA 250 MG ORAL TABLET 2 today, then 1 daily for 4 d ays AZITHROMYCIN 28666912021 No Longer Active Columba Parrish Act nael ZITHROMAX 250 MG ORAL TABLET 2 po today, then 1 po q days 2-5 20 14/03/21 AZITHROMYCIN 77434345741 No Longer Active Carlton Hu MD Active ZITHROMAX Z-REYNA 250 MG ORAL TABLET 2 today, then 1 daily for 4 d ays AZITHROMYCIN 59992389612 No Longer Active Columba Parrish Act nael AUGMENTIN 875-125 MG ORAL TABLET 1 po BID x 10 days 13/01/20 AMOXICILLIN-POT CLAVULANATE 06720354038 No Longer Active Venuriley Daphnebrayan RICEN Active ZITHROMAX 250 MG ORAL TABLET 2 po today, then 1 po q days 2-5 12/08/14 AZITHROMYCIN 79978683339 No Longer Active Carlton Hu MD Active TRAMADOL HCL 50 MG ORAL TABLET 1 po tid with ES Tylenol TRAMADOL HCL 53082618581 Active Carlton Hu MD Active PREMARIN 0.625 MG ORAL TABLET TAKE 1 TAB BY MOUTH DAILY ESTROGENS CONJUGATED 01514014392 No Longer Active Ridge Bess DO A ctive CYMBALTA 30 MG ORAL CAPSULE DELAYED RELEASE PARTICLES 1 cap by mouth daily DULOXETINE HCL 26447292486 No Longer Active Ridge tam DO Active AMOXICILLIN 500 MG ORAL CAPSULE 1 tab by mouth 3 times daily x 10 days AMOXICILLIN 59839022840 No Longer Active Carlton bustamante MD Active AMOXICILLIN 500 MG ORAL CAPSULE 1 tab by mouth 3 times daily x 10 days AMOXICILLIN 81031618239 No Longer Active Carlton bustamante MD Active PROMETHAZINE-CODEINE 6.25-10 MG/5ML ORAL SYRUP 1 tsp b y mouth every 8 hours prn cough PROMETHAZINE-CODEINE 54124461273 No Longer Acti ve Carlton Hu MD Active MEDROL 4 MG ORAL TABLET THERAPY PACK 6 pills x 1 day, then 5 pills x 1 day then 4 pills x 1 day, then 3 pills x 1 day, then 2 pills x 1 day, then 1 pill x 1 day, then stop METHYLPREDNISOLONE 53293549887 No Long er Active Perez Mora MD Active AZITHROMYCIN 250 MG ORAL TABLET 2 po qd x 1 day, then 1 po q d x 4 days AZITHROMYCIN 13012042159 No Longer Active Perez Ambriz MD Active SYMBICORT 160-4.5 MCG/ACT INHALATION AEROSOL 2 puffs bid wit h rinse after BUDESONIDE-FORMOTEROL FUMARATE 88113334201 N o Longer Active Perez Mora MD Active LYRICA 75 MG ORAL CAPSULE TAKE 1 CAPSULE BY MOUTH TWICE DAILY PREGABALIN 37350751331 No Longer Active Carlton Hu MD Acti ve TOPAMAX 25 MG ORAL TABLET 1 qHS x 1 week, then 1 BID x 1 week, then 1 qAM and 2 qHS x 1 week, then 2 BID (migraine prevention) T OPIRAMATE 17912009163 No Longer Active Jerica FUENTES Active TOPAMAX 50 MG ORAL TABLET take 1 tab po BID for migraines. 07/02 TOPIRAMATE 39926374653 No Longer Active Jerica FUENTES Active TOPAMAX 100 MG ORAL TABLET Take 1 tablet po bid TO PIRAMATE 44306096916 Active Carlton Hu MD Active TRIAMCINOLONE ACETONIDE 0.1 % EXTERNAL CREAM apply three roger es daily prn rash TRIAMCINOLONE ACETONIDE 97919406770 No Longer Active Carlton Hu MD Active PAXIL 40 MG ORAL TABLET take 1 tab po qday for depression 0 PAROXETINE HCL 31147959025 Active Carlton Hu MD Active CHERATUSSIN AC 100-10 MG/5ML ORAL SYRUP 5ml po q6hr PRN Cough 20 13/04/14 GUAIFENESIN-CODEINE 83230616580 No Longer Active Carlton Hu MD Active MEDROL 4 MG ORAL TABLET THERAPY PACK 6 tabs on day 1, 5 tabs on day 2, 4 tabs on day 3, 3 tabs on day 4, 2 tabs on day 5, 1 tab on day 6 2013 METHYLPREDNISOLONE 53507852724 No Longer Active Perez Mora MD Active AZITHROMYCIN 250 MG ORAL TABLET 2 po qd x 1 day, then 1 po q d x 4 days AZITHROMYCIN 52021411686 No Longer Active Perez Ambriz MD Active PROPRANOLOL HCL 60 MG ORAL TABLET 1 PO Q D PROPRANOLOL HCL 60922462325 No Longer Active Perez Mora MD Activ e CHERATUSSIN AC 100-10 MG/5ML ORAL SYRUP take one tsp po Q 6h ours prn cough GUAIFENESIN-CODEINE 78708930875 No Longer Active Zia Mora MD Active AUGMENTIN 875-125 MG ORAL TABLET 1 tab by mouth twice daily with food AMOXICILLIN-POT CLAVULANATE 97078850818 No Longer Act nael Perez Mora MD Active CHERATUSSIN AC 100-10 MG/5ML ORAL SYRUP 1 tsp by mouth every 4 hours as needed for cough GUAIFENESIN-CODEINE 92439965762 No Longe r Active Hugo Restrepo MD Active ACETAMINOPHEN-CODEINE #3 300-30 MG ORAL TABLET 1 PO Q 4-6 HRS FL N PAIN ACETAMINOPHEN-CODEINE 79831493713 No Longer Active Hugo Restrepo MD Active LEVAQUIN 500 MG ORAL TABLET take one po QD LEVO FLOXACIN 22048797368 No Longer Active Griffin HERNANDEZ Active PREDNISONE 20 MG ORAL TABLET Take 3 tabs daily for 3 d ays, 2 tabs daily for 3 days, 1 tab daily for 3 days, 1/2 tab daily for 3 days 11/07 PREDNISONE 76688871437 No Longer Active Carlton Hu MD Acti ve AVELOX 400 MG ORAL TABLET 1 tab by mouth daily MOXIFLOXACIN HCL 71035055590 No Longer Active Carlton Hu MD Active CHERATUSSIN AC 100-10 MG/5ML ORAL SYRUP 1 tsp by mouth every 4 hours as needed for cough GUAIFENESIN-CODEINE 58623283900 No Longe r Active Hugo Restrepo MD Active AVELOX 400 MG ORAL TABLET 1 tab by mouth daily MOXIFLOXACIN HCL 15706555683 No Longer Active Marcy De La Rosa MD PhD Active TERBINAFINE HCL 250 MG ORAL TABLET 1 qDay T ERBINAFINE HCL 50089827335 No Longer Active Marcy De La Rosa MD PhD Active CHERATUSSIN AC 100-10 MG/5ML ORAL SYRUP 1 tsp by mouth every 4 hours as needed for cough GUAIFENESIN-CODEINE 53747953891 No Longe r Active Marcy De La Rosa MD PhD Active AVELOX 400 MG ORAL TABLET 1 tab by mouth daily MOXIFLOXACIN HCL 78962116941 No Longer Active Marcy De La Rosa MD PhD Active HYDROCODONE-ACETAMINOPHEN 5-325 MG ORAL TABLET 1 po q 6hr PRN co ugh HYDROCODONE-ACETAMINOPHEN 27600711255 No Longer Active Marcy De La Rosa MD PhD Active PREDNISONE 20 MG ORAL TABLET 2 tabs daily for 3 days, 1 tab daily for 3 days, 1/2 tab daily for 2 days PREDNISONE 81601005383 No Longer Active Carlton Hu MD Active CEFDINIR 300 MG ORAL CAPSULE by mouth twice a day 2011 CEFDINIR 93384503225 No Longer Active Carlton Hu MD Acti ve HYDROCHLOROTHIAZIDE 25 MG ORAL TABLET 1 TAB PO DAILY HYDROCHLOROTHIAZIDE 37101919160 Active Carlton Hu MD A ctive ACETAMINOPHEN-CODEINE #3 300-30 MG ORAL TABLET 1 tablet po q 4-6 hrs prn pain ACETAMINOPHEN-CODEINE 51487947809 No Longer Active Ridge Bess DO Active ZITHROMAX 250 MG ORAL TABLET 2 po today, then 1 po q days 2-5 20 03/07/07 AZITHROMYCIN 96677434592 No Longer Active Carlton Hu MD Active CHERATUSSIN AC 100-10 MG/5ML ORAL SYRUP take 1 tsp po q4-6 h ours prn cough GUAIFENESIN-CODEINE 59609655370 No Longer Active Jayden Hu MD Active ACETAMINOPHEN-CODEINE #3 300-30 MG ORAL TABLET 1 PO Q 4-6 HR PRN PAIN ACETAMINOPHEN-CODEINE 51897328954 No Longer Active Arnol Hu MD Active LORTAB 7.5-500 MG/15ML ORAL ELIXIR 7.5 ml po q 4 hour prn cough HYDROCODONE-ACETAMINOPHEN 00878079919 No Longer Active Carlton Hu MD Active PREDNISONE 20 MG ORAL TABLET 1 po bid 3 days, then 1 po q day 3 days PREDNISONE 02760781680 No Longer Active Carlton Hu MD Active CEFDINIR 300 MG ORAL CAPSULE by mouth twice a day 2011 CEFDINIR 03441926329 No Longer Active Carlton Hu MD Acti ve CEFDINIR 300 MG ORAL CAPSULE by mouth twice a day 2010 CEFDINIR 24718130625 No Longer Active Carlton Hu MD Acti ve CEFDINIR 300 MG ORAL CAPSULE by mouth twice a day 2010 CEFDINIR 22139831784 No Longer Active Carlton Hu MD Acti ve TESSALON PERLES 100 MG ORAL CAPSULE 1 tablet by mouth 3 times daily as needed for cough BENZONATATE 97341100470 No Longer Active Carlton Hu MD Active CEFDINIR 300 MG ORAL CAPSULE by mouth twice a day 2010 CEFDINIR 56742768435 No Longer Active Carlton Hu MD Acti ve ZITHROMAX Z-REYNA 250 MG ORAL TABLET 2 today, then 1 daily for 4 d ays AZITHROMYCIN 99286242981 No Longer Active Hugo Restrepo MD Active TESSALON PERLES 100 MG ORAL CAPSULE 1 tablet by mouth 3 times daily as needed for cough TESSALON PERLES 100 MG ORAL CAPSULE 20285 7 BENZONATATE Inactive PREDNISONE 20 MG ORAL TABLET 1 po bid 3 days, then 1 po q day 3 days PREDNISONE 20 MG ORAL TABLET 459109 PREDNISONE Greer ctive LORTAB 7.5-500 MG/15ML ORAL [...] cough CHERATUSSIN AC 100-10 MG/5ML ORAL SYRUP 229533 GUAIFENESIN-CODEINE Inactive ACETAMINOPHEN-CODEINE #3 300-30 MG ORAL TABLET 1 tablet po q 4-6 hrs prn pain ACETAMINOPHEN-CODEINE #3 300-30 MG ORAL TABLET ACETAMINOPHEN-CODEINE Inactive HYDROCODONE-ACETAMINOPHEN 5-325 MG ORAL TABLET 1 po q 6hr PRN co ugh HYDROCODONE-ACETAMINOPHEN 5-325 MG ORAL TABLET 461612 HYDROCODONE-ACETAMINOPHEN Inactive AVELOX 400 MG ORAL TABLET 1 tab by mouth daily AVELOX 400 MG ORAL TABLET 974700 MOXIFLOXACIN HCL Inactive CHERATUSSIN AC 100-10 MG/5ML ORAL SYRUP 1 tsp by mouth every 4 hours as needed for cough CHERATUSSIN AC 100-10 MG/5ML ORAL SYRUP 9 78155 GUAIFENESIN-CODEINE Inactive TERBINAFINE HCL 250 MG ORAL TABLET 1 qDay 07/08 TERBINAFINE HCL 250 MG ORAL TABLET 820465 TERBINAFINE HCL Inactive CHERATUSSIN AC 100-10 MG/5ML ORAL SYRUP 1 tsp by mouth every 4 hours as needed for cough CHERATUSSIN AC 100-10 MG/5ML ORAL SYRUP 9 21892 GUAIFENESIN-CODEINE Inactive ACETAMINOPHEN-CODEINE #3 300-30 MG ORAL TABLET 1 PO Q 4-6 HRS FL N PAIN ACETAMINOPHEN-CODEINE #3 300-30 MG ORAL TABLET ACETAMINOPHEN-CODEINE Inactive CHERATUSSIN AC 100-10 MG/5ML ORAL SYRUP 1 tsp by mouth every 4 hours as needed for cough CHERATUSSIN AC 100-10 MG/5ML ORAL SYRUP 9 74709 GUAIFENESIN-CODEINE Inactive AUGMENTIN 875-125 MG ORAL TABLET 1 tab by mouth twice daily with food AUGMENTIN 875-125 MG ORAL TABLET 587424 AMOXICIL MADELINE-POT CLAVULANATE Inactive CHERATUSSIN AC 100-10 MG/5ML ORAL SYRUP take one tsp po Q 6h ours prn cough CHERATUSSIN AC 100-10 MG/5ML ORAL SYRUP 093851 GUAIFENESIN-CODEINE Inactive PROPRANOLOL HCL 60 MG ORAL TABLET 1 PO Q D PROPRANOLOL HCL 60 MG ORAL TABLET 039420 PROPRANOLOL HCL Inactive TOPAMAX 50 MG ORAL TABLET take 1 tab po BID for migraines. 07/02 TOPAMAX 50 MG ORAL TABLET 207920 TOPIRAMATE Inacti ve TOPAMAX 25 MG ORAL TABLET 1 qHS x 1 week, then 1 BID x 1 week, then 1 qAM and 2 qHS x 1 week, then 2 BID (migraine prevention) TOPAMAX 25 MG ORAL TABLET 956158 TOPIRAMATE Inactive LYRICA 75 MG ORAL CAPSULE TAKE 1 CAPSULE BY MOUTH TWICE DAILY LYRICA 75 MG ORAL CAPSULE PREGABALIN Inactive SYMBICORT 160-4.5 MCG/ACT INHALATION AEROSOL 2 puffs bid wit h rinse after SYMBICORT 160-4.5 MCG/ACT INHALATION AEROSOL BUDESONIDE- FORMOTEROL FUMARATE Inactive PROMETHAZINE-CODEINE 6.25-10 MG/5ML ORAL SYRUP 1 tsp b y mouth every 8 hours prn cough PROMETHAZINE-CODEINE 6.25-10 MG/ 5ML ORAL SYRUP 455019 PROMETHAZINE-CODEINE Inactive CYMBALTA 30 MG ORAL CAPSULE DELAYED RELEASE PARTICLES 1 cap by mouth daily CYMBALTA 30 MG ORAL CAPSULE DELAYED RELE ASE PARTICLES 821275 DULOXETINE HCL Inactive PREMARIN 0.625 MG ORAL TABLET TAKE 1 TAB BY MOUTH DAILY PREMARIN 0.625 MG ORAL TABLET ESTROGENS CONJUGATED Inactive CHERATUSSIN AC 100-10 MG/5ML ORAL SYRUP 1 tsp by mouth every 4 hours as needed for cough CHERATUSSIN AC 100-10 MG/5ML ORAL SYRUP 9 15934 GUAIFENESIN-CODEINE Inactive PROMETHAZINE-CODEINE 6.25-10 MG/5ML ORAL SYRUP 1 tsp b y mouth every 6 hours if needed for cough PROMETHAZINE-CODEINE 6.25-10 MG/5ML ORAL SYRUP 982224 PROMETHAZINE-CODEINE Inactive CHERATUSSIN AC 100-10 MG/5ML ORAL SYRUP 1 tsp by mouth every 4 hours as needed for cough CHERATUSSIN AC 100-10 MG/5ML ORAL SYRUP 9 27409 GUAIFENESIN-CODEINE Inactive FLUTICASONE PROPIONATE 50 MCG/ACT NASAL SUSPENSION 1 t o 2 sprays each nostril daily FLUTICASONE PROPIONATE 50 MCG/AC T NASAL SUSPENSION 1845226 FLUTICASONE PROPIONATE Inactive PREDNISONE 20 MG ORAL TABLET 3 tab PO qd x 2d, 2 tab P O qd x 2d, 1 tab PO qd x 2d, 1/2 tab PO qd x 2d PREDNISONE 20 MG ORAL TAB LET 622452 PREDNISONE Inactive LEVOFLOXACIN 500 MG ORAL TABLET 1 tab PO daily x 10 days LEVOFLOXACIN 500 MG ORAL TABLET 498005 LEVOFLOXACIN Inactive CYCLOBENZAPRINE HCL 10 MG ORAL TABLET 1 tablet by mouth BID prn had pain CYCLOBENZAPRINE HCL 10 MG ORAL TABLET 344065 CYCLOBENZAPRINE HCL Inactive ZOCOR 40 MG ORAL TABLET 1 tab by mouth daily 4 ZOCOR 40 MG ORAL TABLET 986539 SIMVASTATIN Inactive TUSSIONEX PENNKINETIC ER 10-8 MG/5ML [...] FLUTICASONE PROPIO EFE 50 MCG/ACT NASAL SUSPENSION 5919832 FLUTICASONE PROPIONATE Inactive TUSSIONEX PENNKINETIC ER 10-8 [...] RELEASE 5ml po q12hr PRN Cough TUSSIONEX MARGETI C ER 10-8 MG/5ML ORAL SUSPENSION EXTENDED [...] ays ZITHROMAX Z-REYNA 250 MG ORAL TABLET 355384 AZITHROMYCIN Inactive CEFDINIR 300 MG ORAL CAPSULE by mouth twice a day 2010 CEFDINIR 300 MG ORAL CAPSULE 087379 CEFDINIR Inactive CEFDINIR 300 MG ORAL CAPSULE by mouth twice a day 2010 CEFDINIR 300 MG ORAL CAPSULE 001131 CEFDINIR Inactive CEFDINIR 300 MG ORAL CAPSULE by mouth twice a day 2010 CEFDINIR 300 MG ORAL CAPSULE 329517 CEFDINIR Inactive CEFDINIR 300 MG ORAL CAPSULE by mouth twice a day 2011 CEFDINIR 300 MG ORAL CAPSULE 430459 CEFDINIR Inactive ZITHROMAX 250 MG ORAL TABLET 2 po today, then 1 po q days 2-5 20 03/07/07 ZITHROMAX 250 MG ORAL TABLET 912152 AZITHROMYCIN [place] ctive CEFDINIR 300 MG ORAL CAPSULE by mouth twice a day 2011 CEFDINIR 300 MG ORAL CAPSULE 001104 CEFDINIR Inactive PREDNISONE 20 MG ORAL TABLET 2 tabs daily for 3 days, 1 tab daily for 3 days, 1/2 tab daily for 2 days PREDNISONE 20 MG ORAL T ABLET 335191 PREDNISONE Inactive AVELOX 400 MG ORAL TABLET 1 tab by mouth daily AVELOX 400 MG ORAL TABLET 254990 MOXIFLOXACIN HCL Inactive AVELOX 400 MG ORAL TABLET 1 tab by mouth daily AVELOX 400 MG ORAL TABLET 272919 MOXIFLOXACIN HCL Inactive PREDNISONE 20 MG ORAL TABLET Take 3 tabs daily for 3 d ays, 2 tabs daily for 3 days, 1 tab daily for 3 days, 1/2 tab daily for 3 days 11/07 PREDNISONE 20 MG ORAL TABLET 289578 PREDNISONE Inactive LEVAQUIN 500 MG ORAL TABLET take one po QD LEVAQUIN 500 MG ORAL TABLET 399860 LEVOFLOXACIN Inactive AZITHROMYCIN 250 MG ORAL TABLET 2 po qd x 1 day, then 1 po q d x 4 days AZITHROMYCIN 250 MG ORAL TABLET 045353 AZITHROMY GIOVANNI Inactive MEDROL 4 MG ORAL TABLET THERAPY PACK 6 tabs on day 1, 5 tabs on day 2, 4 tabs on day 3, 3 tabs on day 4, 2 tabs on day 5, 1 tab on day 6 2013 MEDROL 4 MG ORAL TABLET THERAPY PACK 117451 METHYLPREDNISOLONE [place] ctive CHERATUSSIN AC 100-10 MG/5ML ORAL SYRUP 5ml po q6hr PRN Cough 20 13/04/14 CHERATUSSIN AC 100-10 MG/5ML ORAL SYRUP 938144 GUAIFENE SIN-CODEINE Inactive TRIAMCINOLONE ACETONIDE 0.1 % EXTERNAL CREAM apply three roger es daily prn rash TRIAMCINOLONE ACETONIDE 0.1 % EXTERNAL CREAM 101 4314 TRIAMCINOLONE ACETONIDE Inactive AZITHROMYCIN 250 MG ORAL TABLET 2 po qd x 1 day, then 1 po q d x 4 days AZITHROMYCIN 250 MG ORAL TABLET 831093 AZITHROMY GIOVANNI Inactive MEDROL 4 MG ORAL TABLET THERAPY PACK 6 pills x 1 day, then 5 pills x 1 day then 4 pills x 1 day, then 3 pills x 1 day, then 2 pills x 1 day, then 1 pill x 1 day, then stop MEDROL 4 MG ORAL TABLET THERAPY PACK 467411 METHYLPREDNISOLONE Inactive AMOXICILLIN 500 MG ORAL CAPSULE 1 tab by mouth 3 times daily x 10 days AMOXICILLIN 500 MG ORAL CAPSULE 737237 AMOXICILL IN Inactive AMOXICILLIN 500 MG ORAL CAPSULE 1 tab by mouth 3 times daily x 10 days AMOXICILLIN 500 MG ORAL CAPSULE 236991 AMOXICILL IN Inactive ZITHROMAX 250 MG ORAL TABLET 2 po today, then 1 po q days 2-5 20 12/08/14 ZITHROMAX 250 MG ORAL TABLET 892353 AZITHROMYCIN [place] ctive AUGMENTIN 875-125 MG ORAL TABLET 1 po BID x 10 days 20 13/01/20 AUGMENTIN 875-125 MG ORAL TABLET 033738 AMOXICILLIN-POT CLAVULANATE Inactive ZITHROMAX Z-REYNA 250 MG ORAL TABLET 2 today, then 1 daily for 4 d ays ZITHROMAX Z-REYNA 250 MG ORAL TABLET 375955 AZITHROMYCIN Inactive ZITHROMAX 250 MG ORAL TABLET 2 po today, then 1 po q days 2-5 20 14/03/21 ZITHROMAX 250 MG ORAL TABLET 034148 AZITHROMYCIN [place] ctive ZITHROMAX Z-REYNA 250 MG ORAL TABLET 2 today, then 1 daily for 4 d ays ZITHROMAX Z-REYNA 250 MG ORAL TABLET 904032 AZITHROMYCIN Inactive CEFDINIR 300 MG ORAL CAPSULE 1 po BID x 10 days 06/21 CEFDINIR 300 MG ORAL CAPSULE 20020704 CEFDINIR Inactive ZITHROMAX 250 MG ORAL TABLET 2 po today, then 1 po q days 2-5 20 13/08/10 ZITHROMAX 250 MG ORAL TABLET 240565 AZITHROMYCIN [place] ctive LEVAQUIN 500 MG ORAL TABLET 1 tablet by mouth daily 20 13/09/24 LEVAQUIN 500 MG ORAL TABLET 19971102 LEVOFLOXACIN Inactive SINGULAIR 10 MG ORAL TABLET 1 po qday for allergies 20 14/01/12 SINGULAIR 10 MG ORAL TABLET 20010504 MONTELUKAST SODIUM Inactive AMOXICILLIN 500 MG ORAL CAPSULE 2 po BID x 10 days 201 09/29/08 AMOXICILLIN 500 MG ORAL CAPSULE 441067 AMOXICILLIN Inactive PREDNISONE 20 MG ORAL TABLET 2 tabs daily for 3 days, 1 tab daily for 3 days, 1/2 tab daily for 2 days PREDNISONE 20 MG ORAL T ABLET 377987 PREDNISONE Inactive ZITHROMAX Z-REYNA 250 MG ORAL TABLET 2 today, then 1 daily for 4 d ays ZITHROMAX Z-REYNA 250 MG ORAL TABLET 553425 AZITHROMYCIN Inactive PREDNISONE 20 MG ORAL TABLET 2 tabs daily for 3 days, 1 tab daily for 3 days, 1/2 tab daily for 2 days PREDNISONE 20 MG ORAL T ABLET 179957 PREDNISONE Inactive ZITHROMAX 250 MG ORAL TABLET 2 po today, then 1 po q days 2-5 20 14/09/04 ZITHROMAX 250 MG ORAL TABLET 173969 AZITHROMYCIN Greer ctive AMOXICILLIN 500 MG ORAL CAPSULE 1 cap by mouth three times a day AMOXICILLIN 500 MG ORAL CAPSULE 675714 AMOXICILLIN Inactive TERBINAFINE HCL 250 MG ORAL TABLET 1 qDay for nail fungus 7 TERBINAFINE HCL 250 MG ORAL TABLET 551523 TERBINAFINE HCL Inact nael Vital Signs Date Name Value Unit Range Description blood pressure, diastolic 69 mm[Hg] BP srinivasan [...] - Chem istry sodium, serum 132 mmol/L 102-564 1325/07/12 potassium, serum 2.7 mmol/L 3.5-5.2 chloride, serum 93 mmol/L 98-107 carbon dioxide, venous blood 30.8 mmol/L 21.0-32 .0 blood glucose 107 mg/dL 65-110 calcium, serum 9.3 mg/dL 8.5-10.1 urea nitrogen, blood 12 mg/dL 7-18 creatinine, serum 1.00 mg/dL 0.60-1.30 sodium, serum 142 mmol/L 367-392 9616/07/17 potassium, serum 4.2 mmol/L 3.5-5.2 chloride, serum 106 mmol/L 98-107 carbon dioxide, venous blood 29.9 mmol/L 21.0-32 .0 blood glucose 108 mg/dL 65-110 calcium, serum 9.1 mg/dL 8.5-10.1 urea nitrogen, blood 11 mg/dL 7-18 creatinine, serum 0.81 mg/dL 0.60-1.30 Lab Report: Rapid Strep - Lab Microbial identification kit, rapid strep method Negative Negative Encounters Code Encounter Date Provider Facility CPT-53604 Level 3 Est. Patient 10:26:00 LEAD BI DEVELOPER Italo COMPTROLLER [facility] CPT-10087 Level 3 Est. Patient 13:35:41 LEAD BI DEVELOPER Carlton rich MD [facility] CPT-20383 Level 3 Est. Patient 10:03:52 LEAD BI DEVELOPER Carlton rich MD [facility] CPT-06560 Level 3 Est. Patient 12:17:50 CDT Hugo Restrepo MD [facility] CPT-06990 Level 3 Est. Patient 13:42:[address] [facility] CPT-30121 Level 3 Est. Patient 13:23:51 CDT Diya Mariana mango [facility] CPT-70829 Level 3 Est. Patient 14:22:19 LEAD BI DEVELOPER Diya Mariana cobian [facility] CPT-36241 Level 3 Est. Patient 10:11:46 CDT Carl[address] rich MD [facility] CPT-93942 Level 3 Est. Patient 17:29:43 CDT Elise Cesar spaulding [facility] CPT-01599 Level 3 Est. Patient 11:58:06 CDT Elise And chelly [facility] CPT-68284 Level 4 Est. Patient 14:36:51 CDT Carlton rich MD -[id number] Level 3 Est. Patient 18:16:00 LEAD BI DEVELOPER Blaine Freeman [facility] CPT-92083 Level 3 Est. Patient 09:45:49 LEAD BI DEVELOPER Carlton rich MD [facility] CPT-95810 Level 3 Est. Patient 13:19:20 CDT [address] rich MD [facility] CPT-84801 Level 3 Est. Patient 13:06:43 CDT Ridge tam DO [facility] CPT-63783 Level 3 Est. Patient 10:03:07 CDT Perez Mora MD [facility] CPT-25193 Level 3 Est. Patient 19:50:35 LEAD BI DEVELOPER Carlton rich MD [facility] CPT-20319 Level 4 Est. Patient 18:05:01 LEAD BI DEVELOPER Carlton rich MD [facility] CPT-20584 Level 3 Est. Patient 10:45:55 LEAD BI DEVELOPER Hugo Restrepo MD [facility] CPT-92834 Level 3 Est. Patient 14:12:49 CDT Griffin lincoln [facility] CPT-21320 Level 3 Est. Patient 17:37:24 CDT Carl[address] rich MD [facility] CPT-32106 Level 3 Est. Patient 16:51:54 CDT Carlton rich MD [facility] CPT-60259 Level 3 Est. Patient 12:18:11 CDT Hugo Restrepo MD [facility] CPT-49927 Level 3 Est. Patient 11:30:25 CDT Marcy crisostomo MD PhD [facility] CPT-78947 Level 3 Est. Patient 12:00:47 LEAD BI DEVELOPER Carlton rich MD [facility] CPT-03957 Level 3 Est. Patient 16:31:06 LEAD BI DEVELOPER Carlton rihc MD [facility] CPT-30400 Level 3 Est. Patient 16:23:24 LEAD BI DEVELOPER Ridge tam [facility] CPT-90139 Level 3 Est. Patient 12:34:12 CDT Carlton rich MD [facility] CPT-72304 Level 2 Est. Patient 15:43:33 CDT Robi armstrong MD [facility] CPT-73091 Level 4 Est. Patient 14:04:44 CDT Carl[address] rich MD [facility] CPT-21311 Level 3 Est. Patient 05:47:59 CDT Ridge tam [facility] CPT-61913 Level 3 Est. Patient 13:12:53 LEAD BI DEVELOPER Carlton rich MD [facility] CPT-85620 Level 3 Est. Patient 14:26:53 CDT Hugo Restrepo MD [facility] Procedures Code Procedure Name Date Entry Date Standard Desc ription CPT-J1040 Depo Medrol 80 mg (Methyl Prednisolone A cetate) 10:42:44 CDT CPT-J1100 Decadron 8mg (Dexamethasone) 10:42:44 CDT 2 CPT-J0696 Rocephin 1gm Inj Solr 14:32:13 CDT CPT-J1020 Depo Medrol 60 mg (Methyl Prednisolone A cetate) 14:32:13 CDT CPT-J1100 Decadron 6mg (Dexamethasone) 14:32:13 CDT 2 CPT-60011 Hip bilat min 2V w AP pelvis 13:16:20 CDT 2 CPT-47742 Pelvis only 13:07:33 CDT CPT-03802 Spec Collection and Handling Fee 11:25:12 C DT CPT-13822 Fluzone Quadrivalent Intramuscular Suspe nsion 0.5 ML 14:31:55 CDT CPT-20824 Abx/Therapy Injection 13:28:47 LEAD BI DEVELOPER CPT-J2930 Solu Medrol 125 mg (Methyl Prednisolone Sodium Succinate) 12:00:47 LEAD BI DEVELOPER CPT-93958 Venipuncture Draw Fee 11:33:31 CDT CPT-45671 EKG Trac and Interp 11:21:09 CDT CPT-57935 Chest 2V Frontal and Lat 11:21:09 CDT 12/15 CPT-61692 Venipuncture Draw Fee 08:02:34 CDT CPT-00964 Chest 2V Frontal and Lat 05:47:59 CDT 06/05
--- OUTSIDE RECORDS SUMMARY | 2019-10-08 08:09 | XMS REPORT | Clinical Summary ---
Author Author Caitlin, Juliana Martinez Organization [employer] [facility] Address Unknown Phone Unavailable Allergies, Adverse [...] MD Headache Dermatitis, atopic 691.8 Active Carlton bletrán MD Other atopic dermatitis and related conditions [...] 462 Active Hugo Restrepo MD Acute pharyngitis BRONCHITIS ICD-490 Inactive Hugo Restrepo MD 201 [...] Generic Name NDC Status Provider Patient Instruction POTASSIUM CHLORIDE ER 20 MEQ ORAL CR-TABS Take 1 by mo uth 4 times daily for 7 days POTASSIUM CHLORIDE 92463067439 Active Columba Raida Active TUSSIONEX PENNKINETIC ER 10-8 MG/5ML LQCR 5ml po q12hr PRN Cough 20 14/09/04 HYDROCOD POLST-CHLORPHEN POLST 59394415498 Active Elise Whitmore APRN Active ZITHROMAX 250 MG TAB 2 po today, then 1 po q days 2-5 AZITHROMYCIN 35962718725 No Longer Active Elise Whitmore APRN Acti ve TUSSIONEX PENNKINETIC ER 10-8 MG/5ML LQCR 5 ml twice a day a s needed for cough HYDROCOD POLST-CHLORPHEN POLST 21773840128 N o Longer Active Elise Whitmore APRN Active MONTELUKAST SODIUM 10 MG ORAL TABS 1 po daily for Allergy 6 MONTELUKAST SODIUM 08462192496 Active Carlton Hu MD Ac tive TUSSIONEX PENNKINETIC ER 10-8 MG/5ML LQCR 5ml po q12hr PRN Cough HYDROCOD POLST-CHLORPHEN POLST 34474191692 No Longer Active Hugo Restrepo MD Active GABAPENTIN 100 MG CAPS 1 po BID for fibromyalgia GABAPENTIN 09642117465 Active Elise Whitmore APRN Active LYRICA 100 MG CAPS Take 1 tab po BID for fibromyalgia PREGABALIN 94689962351 No Longer Active Elise Whitmore APRN Acti ve PROAIR HFA 108 (90 BASE) MCG/ACT AERS 2 puffs four times a d ay as needed ALBUTEROL SULFATE 94677394033 Active Elise Whitmore APRN Active MUCINEX DM MAXIMUM STRENGTH 60-1200 MG [id number] 1 tab po q am 2016 DEXTROMETHORPHAN-GUAIFENESIN 61741240266 Active Jillina Frazell AGRICULTURAL ENGINEER Active PREDNISONE 20 MG TAB 2 tabs daily for 3 days, 1 t ab daily for 3 days, 1/2 tab daily for 2 days PREDNISONE 56817306578 No Longer Active Jillina Frazell AGRICULTURAL ENGINEER Active TUSSIONEX PENNKINETIC ER 10-8 MG/5ML ORAL LQCR 5 mL PO q 12 hrs PRN cough HYDROCOD POLST-CHLORPHEN POLST 16368105580 No Longer Active Jillina Frazell AGRICULTURAL ENGINEER Active FLUTICASONE PROPIONATE 50 MCG/ACT SUSP 2 sprays each n ostril daily until bottle is empty FLUTICASONE PROPIONATE 31690478824 No Longer Ac tive Jillina Frazell AGRICULTURAL ENGINEER Active ASMANEX 60 METERED DOSES 220 MCG/INH AEPB 1 puff bid with ri nse after MOMETASONE FUROATE 91884925406 No Longer Active Diya meneses AGRICULTURAL ENGINEER Active ZITHROMAX Z-REYNA 250 MG TABS 2 today, then 1 daily for 4 days 201 09/29/14 AZITHROMYCIN 41519153432 No Longer Active Elise Whitmore AGRICULTURAL ENGINEER Active TUSSIONEX PENNKINETIC ER 10-8 MG/5ML LQCR 5ml po q12hr PRN Cough HYDROCOD POLST-CHLORPHEN POLST 27373435108 No Longer Active Elise Whitmore AGRICULTURAL ENGINEER Active MUCINEX D 60-600 MG [id number] 1 tab po q am PSEUDOEPHEDRINE-GUAIFENESIN 13246654994 Active Diya De Guzman AGRICULTURAL ENGINEER Active PREDNISONE 20 MG TAB 2 tabs daily for 3 days, 1 t ab daily for 3 days, 1/2 tab daily for 2 days PREDNISONE 69572669501 No Longer Active Diya De Guzman AGRICULTURAL ENGINEER Active AMOXICILLIN 500 MG CAPS 2 po BID x 10 days AMOX ICILLIN 00759055700 No Longer Active Diya De Guzman AGRICULTURAL ENGINEER Active SINGULAIR 10 MG TABS 1 po qday for allergies 2 MONTELUKAST SODIUM 72740932039 No Longer Active Carlton Hu MD Acti ve LEVAQUIN 500 MG TAB 1 tablet by mouth daily LEV OFLOXACIN 36558574915 No Longer Active Carlton Hu MD Active FLUTICASONE PROPIONATE 50 MCG/ACT SUSP 2 sprays each n ostril daily for 2 weeks, then 1 spray each nostril daily. FLUTICASONE PRO PIONATE 28262907195 Active Elise Whitmore APRN Active ZITHROMAX 250 MG TAB 2 po today, then 1 po q days 2-5 AZITHROMYCIN 82675036660 No Longer Active Elise Whitmore APRN Acti ve XANAX 0.5 MG TABS one tablet by mouth daily prn anxiety ALPRAZOLAM 53379920560 Active Elise Whitmore APRN Active CYMBALTA 30 MG CPEP 1 cap by mouth daily for depression DULOXETINE HCL 70682787961 Active Carlton Hu MD Active CEFDINIR 300 MG CAPS 1 po BID x 10 days CEFDINI R 18683986480 No Longer Active Carlton Hu MD Active ZOCOR 40 MG TAB 1 tab by mouth daily SIMVASTATI N 32130904032 No Longer Active Carlton Hu MD Active CYCLOBENZAPRINE HCL 10 MG TABS 1 tablet by mouth BID prn had cherelle n CYCLOBENZAPRINE HCL 44779799329 No Longer Active Carlton Hu MD Active LEVOFLOXACIN 500 MG ORAL TABS 1 tab PO daily x 10 days LEVOFLOXACIN 90612227140 No Longer Active Carlton Hu MD Acti ve PREDNISONE 20 MG ORAL TABS 3 tab PO qd x 2d, 2 tab PO qd x 2d, 1 tab PO qd x 2d, 1/2 tab PO qd x 2d PREDNISONE 42509428635 No Longer Active Carlton Hu MD Active FLUTICASONE PROPIONATE 50 MCG/ACT SUSP 1 to 2 sprays each no stril daily FLUTICASONE PROPIONATE 66491202949 No Longer Active T jaz HERNANDEZ Active CHERATUSSIN AC 100-10 MG/5ML SYRP 1 tsp by mouth every 4 hours as needed for cough GUAIFENESIN-CODEINE 96485475926 No Longer Activ e Blaine HERNANDEZ Active PROMETHAZINE-CODEINE 6.25-10 MG/5ML SYRP 1 tsp by mout h every 6 hours if needed for cough PROMETHAZINE-CODEINE 38838340139 No Long er Active Blaine HERNANDEZ Active CHERATUSSIN AC 100-10 MG/5ML SYRP 1 tsp by mouth every 4 hours as needed for cough GUAIFENESIN-CODEINE 35510612319 No Longer Activ e Blaine HERNANDEZ Active ZITHROMAX Z-REYNA 250 MG TABS 2 today, then 1 daily for 4 days 201 08/30/03 AZITHROMYCIN 62709626443 No Longer Active Columba Raida Act nael ZITHROMAX 250 MG TAB 2 po today, then 1 po q days 2-5 AZITHROMYCIN 68539952935 No Longer Active Carlton Hu MD Acti ve ZITHROMAX Z-REYNA 250 MG TABS 2 today, then 1 daily for 4 days 201 08/07/20 AZITHROMYCIN 35520920726 No Longer Active Columba Raida Act nael AUGMENTIN 875-125 MG TAB 1 po BID x 10 days AMOXICILLIN- POT CLAVULANATE 72379667671 No Longer Active Jillshakira Sernazell AGRICULTURAL ENGINEER Active ZITHROMAX 250 MG TAB 2 po today, then 1 po q days 2-5 AZITHROMYCIN 06181764237 No Longer Active Carlton Hu MD Acti ve TRAMADOL HCL 50 MG TABS 1 po tid with ES Tylenol TRAMADOL HCL 41484715817 Active Carlton Hu MD Active PREMARIN 0.625 MG TABS TAKE 1 TAB BY MOUTH DAILY 07/25 ESTROGENS CONJUGATED 47692107237 No Longer Active Ridge Bess DO Active CYMBALTA 30 MG CPEP 1 cap by mouth daily DULOXE SNEHA HCL 69093256819 No Longer Active Ridge Bess DO Active AMOXICILLIN 500 MG CAP 1 tab by mouth 3 times daily x 10 days 20 14/04/28 AMOXICILLIN 69913790998 No Longer Active Carlton Hu MD Active AMOXICILLIN 500 MG CAP 1 tab by mouth 3 times daily x 10 days 20 13/03/08 AMOXICILLIN 86499322412 No Longer Active Carlton Hu MD Active PROMETHAZINE-CODEINE 6.25-10 MG/5ML SYRP 1 tsp by mouth ever y 8 hours prn cough PROMETHAZINE-CODEINE 03719364143 No Longer Active Robert Hu MD Active MEDROL (REYNA) 4 MG TABS 6 pills x 1 day, then 5 pill s x 1 day then 4 pills x 1 day, then 3 pills x 1 day, then 2 pills x 1 day, then 1 pill x 1 day, then stop METHYLPREDNISOLONE 60205219157 No Longer Active Parris Mora MD Active AZITHROMYCIN 250 MG TABS 2 po qd x 1 day, then 1 po qd x 4 days AZITHROMYCIN 29238171571 No Longer Active Perez Mora MD Active SYMBICORT 160-4.5 MCG/ACT AERO 2 puffs bid with rinse after 2011 BUDESONIDE-FORMOTEROL FUMARATE 15490727556 No Longer Active Perez Mora MD Active LYRICA 75 MG CAPS TAKE 1 CAPSULE BY MOUTH TWICE DAILY 2013 PREGABALIN 83688096821 No Longer Active Carlton Hu MD Active TOPAMAX 25 MG TABS 1 qHS x 1 week, then 1 BID x 1 week, then 1 qAM and 2 qHS x 1 week, then 2 BID (migraine prevention) TOPIRAMAT E 36754834099 No Longer Active Jerica FUENTES Active TOPAMAX 50 MG TABS take 1 tab po BID for migraines. 12/07/10 TOPIRAMATE 68614597457 No Longer Active Jerica FUENTES Ac tive TOPAMAX 100 MG TABS Take 1 tablet po bid TOPIRAMATE 4999 9496129 Active Elise Whitmore AGRICULTURAL ENGINEER Active TRIAMCINOLONE ACETONIDE 0.1 % CREA apply three times daily prn r beatrice TRIAMCINOLONE ACETONIDE 48117868635 No Longer Active Carlton Hu MD Active PAXIL 40 MG TAB take 1 tab po qday for depression PAROXETINE HCL 65402851898 Active Carlton Hu MD Active CHERATUSSIN AC 100-10 MG/5ML SYRP 5ml po q6hr PRN Cough GUAIFENESIN-CODEINE 43432659449 No Longer Active Carlton Hu MD Active MEDROL (REYNA) 4 MG TABS 6 tabs on day 1, 5 tabs on d ay 2, 4 tabs on day 3, 3 tabs on day 4, 2 tabs on day 5, 1 tab on day 6 METHYLPREDNISOLONE 69968592428 No Longer Active Perez Mora MD Active AZITHROMYCIN 250 MG TABS 2 po qd x 1 day, then 1 po qd x 4 days AZITHROMYCIN 31252618111 No Longer Active Perez Mora MD Active PROPRANOLOL HCL 60 MG TABS 1 PO Q D PROPRANOL OL HCL 84866400229 No Longer Active Perez Mora MD Active CHERATUSSIN AC 100-10 MG/5ML SYRP take one tsp po Q 6hours prn c ough GUAIFENESIN-CODEINE 42807956535 No Longer Active Perez Means Active AUGMENTIN 875-125 MG TAB 1 tab by mouth twice daily with food 20 12/03/31 AMOXICILLIN-POT CLAVULANATE 46016028312 No Longer Active Chanel Mora MD Active CHERATUSSIN AC 100-10 MG/5ML SYRP 1 tsp by mouth every 4 hours as needed for cough GUAIFENESIN-CODEINE 96834457298 No Longer Activ e Hugo Restrepo MD Active ACETAMINOPHEN-CODEINE #3 300-30 MG TABS 1 PO Q 4-6 HRS PRN PAIN ACETAMINOPHEN-CODEINE 29639739415 No Longer Active Hugo Restrepo MD Active LEVAQUIN 500 MG TABS take one po QD LEVOFLOXACI N 76505136261 No Longer Active Griffin HERNANDEZ Active PREDNISONE 20 MG TAB Take 3 tabs daily for 3 days , 2 tabs daily for 3 days, 1 tab daily for 3 days, 1/2 tab daily for 3 days P REDNISONE 89469691629 No Longer Active Carlton Hu MD Active AVELOX 400 MG TABS 1 tab by mouth daily MOXIFLO XACIN HCL 36813307205 No Longer Active Carlton Hu MD Active CHERATUSSIN AC 100-10 MG/5ML SYRP 1 tsp by mouth every 4 hours as needed for cough GUAIFENESIN-CODEINE 99134591232 No Longer Activ e Hugo Restrepo MD Active AVELOX 400 MG TABS 1 tab by mouth daily MOXIFLO XACIN HCL 75806995465 No Longer Active Marcy De La Rosa MD PhD Active TERBINAFINE HCL 250 MG TABS 1 qDay TERBINAF INE HCL 19171333193 No Longer Active Marcy De La Rosa MD PhD Active CHERATUSSIN AC 100-10 MG/5ML SYRP 1 tsp by mouth every 4 hours as needed for cough GUAIFENESIN-CODEINE 97939332878 No Longer Activ e Marcy De La Rosa MD PhD Active AVELOX 400 MG TABS 1 tab by mouth daily MOXIFLO XACIN HCL 86217652850 No Longer Active Marcy De La Rosa MD PhD Active HYDROCODONE-ACETAMINOPHEN 5-325 MG TABS 1 po q 6hr PRN cough 201 05/09/16 HYDROCODONE-ACETAMINOPHEN 45826390635 No Longer Active Marcy De La Rosa MD PhD Active PREDNISONE 20 MG TAB 2 tabs daily for 3 days, 1 t ab daily for 3 days, 1/2 tab daily for 2 days PREDNISONE 09256051930 No Longer Active Carlton Hu MD Active CEFDINIR 300 MG CAPS by mouth twice a day CEFDI ODILIA 15891573565 No Longer Active Carlton Hu MD Active HYDROCHLOROTHIAZIDE 25 MG TABS 1 TAB PO DAILY H YDROCHLOROTHIAZIDE 35643015056 Active Carlton Hu MD Active ACETAMINOPHEN-CODEINE #3 300-30 MG TABS 1 tablet po q 4-6hrs prn pain ACETAMINOPHEN-CODEINE 41061299468 No Longer Active Ridge Bess DO Active ZITHROMAX 250 MG TAB 2 po today, then 1 po q days 2-5 AZITHROMYCIN 87801316398 No Longer Active Carlton Hu MD Acti ve CHERATUSSIN AC 100-10 MG/5ML SYRP take 1 tsp po q4-6 hours prn c ough GUAIFENESIN-CODEINE 61460778123 No Longer Active Carlton Hu MD Active ACETAMINOPHEN-CODEINE #3 300-30 MG TABS 1 PO Q 4-6 HR PRN PAIN 2 ACETAMINOPHEN-CODEINE 99899215402 No Longer Active Carlton rich MD Active LORTAB 7.5-500 MG/15ML ELIX 7.5 ml po q 4 hour prn cough HYDROCODONE-ACETAMINOPHEN 37396059846 No Longer Active Carlton Hu MD Active PREDNISONE 20 MG TAB 1 po bid 3 days, then 1 po q day 3 days 201 05/03/07 PREDNISONE 09299212607 No Longer Active Carlton Hu MD Active ELMIRON 100 MG CAPS 2 tablets in the am and 1 tablet at hs PENTOSAN POLYSULFATE SODIUM 47407230171 Active Carlton Hu MD Ac tive CEFDINIR 300 MG CAPS by mouth twice a day CEFDI ODILIA 13921107740 No Longer Active Carlton Hu MD Active CEFDINIR 300 MG CAPS by mouth twice a day CEFDI ODILIA 13145281648 No Longer Active Carlton Hu MD Active CEFDINIR 300 MG CAPS by mouth twice a day CEFDI ODILIA 62078007083 No Longer Active Carlton Hu MD Active TESSALON PERLES 100 MG CAP 1 tablet by mouth 3 times daily a s needed for cough BENZONATATE 65977779722 No Longer Active Carlton bustamante MD Active CEFDINIR 300 MG CAPS by mouth twice a day CEFDI ODILIA 46922913780 No Longer Active Carlton Hu MD Active ZITHROMAX Z-REYNA 250 MG TABS 2 today, then 1 daily for 4 days 201 04/09/17 AZITHROMYCIN 49079437661 No Longer Active Hugo Restrepo MD Active TESSALON PERLES 100 MG CAP 1 tablet by mouth 3 times daily a s needed for cough TESSALON PERLES 100 MG CAP 291766 BENZONATATE I nactive PREDNISONE 20 MG TAB 1 po bid 3 days, then 1 po q day 3 days 201 05/03/07 PREDNISONE 20 MG TAB 700008 PREDNISONE Inactive LORTAB 7.5-500 MG/15ML ELIX 7.5 ml po q 4 hour prn cough LORTAB 7.5-500 MG/15ML ELIX HYDROCODONE-ACETAMINOPHEN Inacti ve ACETAMINOPHEN-CODEINE #3 300-30 MG TABS 1 PO Q 4-6 HR PRN PAIN 2 ACETAMINOPHEN-CODEINE #3 300-30 MG TABS ACETAMIN OPHEN-CODEINE Inactive CHERATUSSIN AC 100-10 MG/5ML SYRP take 1 tsp po q4-6 hours prn c ough CHERATUSSIN AC 100-10 MG/5ML SYRP 813449 GUAIFENESIN-CO DEINE Inactive ACETAMINOPHEN-CODEINE #3 300-30 MG TABS 1 tablet po q 4-6hrs prn pain ACETAMINOPHEN-CODEINE #3 300-30 MG TABS ACETAMIN OPHEN-CODEINE Inactive HYDROCODONE-ACETAMINOPHEN 5-325 MG TABS 1 po q 6hr PRN cough 201 05/09/16 HYDROCODONE-ACETAMINOPHEN 5-325 MG TABS 291880 HYDROCODONE-ACETAMINOPHEN Inactive AVELOX 400 MG TABS 1 tab by mouth daily A VELOX 400 MG TABS 566251 MOXIFLOXACIN HCL Inactive CHERATUSSIN AC 100-10 MG/5ML SYRP 1 tsp by mouth every 4 hours as needed for cough CHERATUSSIN AC 100-10 MG/5ML SYRP 207338 GUAIFENESIN-CODEINE Inactive TERBINAFINE HCL 250 MG TABS 1 qDay TERBINAFINE HCL 250 MG TABS 579276 TERBINAFINE HCL Inactive CHERATUSSIN AC 100-10 MG/5ML SYRP 1 tsp by mouth every 4 hours as needed for cough CHERATUSSIN AC 100-10 MG/5ML SYRP 301711 GUAIFENESIN-CODEINE Inactive ACETAMINOPHEN-CODEINE #3 300-30 MG TABS 1 PO Q 4-6 HRS PRN PAIN ACETAMINOPHEN-CODEINE #3 300-30 MG TABS ACETAMINOPHEN-CODEIN E Inactive CHERATUSSIN AC 100-10 MG/5ML SYRP 1 tsp by mouth every 4 hours as needed for cough CHERATUSSIN AC 100-10 MG/5ML SYRP 075369 GUAIFENESIN-CODEINE Inactive AUGMENTIN 875-125 MG TAB 1 tab by mouth twice daily with food 20 12/03/31 AUGMENTIN 875-125 MG TAB 673982 AMOXICILLIN-POT CLAVULA EEF Inactive CHERATUSSIN AC 100-10 MG/5ML SYRP take one tsp po Q 6hours prn c ough CHERATUSSIN AC 100-10 MG/5ML SYRP 012845 GUAIFENESIN-CO DEINE Inactive PROPRANOLOL HCL 60 MG TABS 1 PO Q D P ROPRANOLOL HCL 60 MG TABS 297254 PROPRANOLOL HCL Inactive TOPAMAX 50 MG TABS take 1 tab po BID for migraines. 12/07/10 TOPAMAX 50 MG TABS 577663 TOPIRAMATE Inactive TOPAMAX 25 MG TABS 1 qHS x 1 week, then 1 BID x 1 week, then 1 qAM and 2 qHS x 1 week, then 2 BID (migraine prevention) TOPAMAX 2 5 MG TABS 724728 TOPIRAMATE Inactive LYRICA 75 MG CAPS TAKE 1 CAPSULE BY MOUTH TWICE DAILY LYRICA 75 MG CAPS PREGABALIN Inactive SYMBICORT 160-4.5 MCG/ACT AERO 2 puffs bid with rinse after 2011 SYMBICORT 160-4.5 MCG/ACT AERO BUDESONIDE-FORMOT SÁNCHEZ FUMARATE Inactive PROMETHAZINE-CODEINE 6.25-10 MG/5ML SYRP 1 tsp by mouth ever y 8 hours prn cough PROMETHAZINE-CODEINE 6.25-10 MG/5ML SYRP 217577 PROMETHAZINE-CODEINE Inactive CYMBALTA 30 MG CPEP 1 cap by mouth daily CYMBALTA 30 MG CPEP 621902 DULOXETINE HCL Inactive PREMARIN 0.625 MG TABS TAKE 1 TAB BY MOUTH DAILY 07/25 PREMARIN 0.625 MG TABS ESTROGENS CONJUGATED Inactive CHERATUSSIN AC 100-10 MG/5ML SYRP 1 tsp by mouth every 4 hours as needed for cough CHERATUSSIN AC 100-10 MG/5ML SYRP 338706 GUAIFENESIN-CODEINE Inactive PROMETHAZINE-CODEINE 6.25-10 MG/5ML SYRP 1 tsp by mout h every 6 hours if needed for cough PROMETHAZINE-CODEINE 6.25-10 MG/5ML SYRP 884443 PROMETHAZINE-CODEINE Inactive CHERATUSSIN AC 100-10 MG/5ML SYRP 1 tsp by mouth every 4 hours as needed for cough CHERATUSSIN AC 100-10 MG/5ML SYRP 290326 GUAIFENESIN-CODEINE Inactive FLUTICASONE PROPIONATE 50 MCG/ACT SUSP 1 to 2 sprays each no stril daily FLUTICASONE PROPIONATE 50 MCG/ACT SUSP 3465535 FLUTICASONE PROPIONATE Inactive PREDNISONE 20 MG ORAL TABS 3 tab PO qd x 2d, 2 tab PO qd x 2d, 1 tab PO qd x 2d, 1/2 tab PO qd x 2d PREDNISONE 20 MG ORAL TABS 928447 PREDNISONE Inactive LEVOFLOXACIN 500 MG ORAL TABS 1 tab PO daily x 10 days LEVOFLOXACIN 500 MG ORAL TABS 500134 LEVOFLOXACIN Inactive CYCLOBENZAPRINE HCL 10 MG TABS 1 tablet by mouth BID prn had cherelle n CYCLOBENZAPRINE HCL 10 MG TABS 030348 CYCLOBENZAPRINE H CL Inactive ZOCOR 40 MG TAB 1 tab by mouth daily ZOCOR 40 M G TAB 437931 SIMVASTATIN Inactive TUSSIONEX PENNKINETIC ER 10-8 MG/5ML [...] empty FLUTICASONE PROPIONATE 50 MCG/ACT SUSP 17 32775 FLUTICASONE PROPIONATE Inactive TUSSIONEX PENNKINETIC ER 10-8 MG/5ML ORAL LQCR 5 mL PO q 12 hrs PRN cough TUSSIONEX PENNKINETIC ER 10-8 MG/5ML ORAL LQCR HYDROCOD POLST-CHLORPHEN POLST Inactive LYRICA 100 MG CAPS Take 1 tab po BID for fibromyalgia LYRICA 100 MG CAPS PREGABALIN Inactive TUSSIONEX PENNKINETIC ER 10-8 MG/5ML LQCR [...] 201 04/09/17 ZITHROMAX Z-REYNA 250 MG TABS 8150494 AZITHROMYCIN Inac tive CEFDINIR 300 MG CAPS [...] q days 2-5 ZITHROMAX 250 MG TAB 9524180 AZITHROMYCIN Inactive CEFDINIR 300 MG CAPS by mouth twice a day CEFDINIR 300 MG CAPS 20020704 CEFDINIR Inactive PREDNISONE 20 MG TAB 2 tabs daily for 3 days, 1 t ab daily for 3 days, 1/2 tab daily for 2 days PREDNISONE 20 MG TAB 335086 PREDNISON E Inactive AVELOX 400 MG TABS 1 tab by mouth daily A VELOX 400 MG TABS 732633 MOXIFLOXACIN HCL Inactive AVELOX 400 MG TABS 1 tab by mouth daily A VELOX 400 MG TABS 536090 MOXIFLOXACIN HCL Inactive PREDNISONE 20 MG TAB Take 3 tabs daily for 3 days , 2 tabs daily for 3 days, 1 tab daily for 3 days, 1/2 tab daily for 3 days PREDNISONE 20 MG TAB 805147 PREDNISONE Inactive LEVAQUIN 500 MG TABS take one po QD LEVAQUIN 50 0 MG TABS 704124 LEVOFLOXACIN Inactive AZITHROMYCIN 250 MG TABS 2 po qd x 1 day, then 1 po qd x 4 days AZITHROMYCIN 250 MG TABS 0111264 AZITHROMYCIN Inactiv e MEDROL (REYNA) 4 MG TABS 6 tabs on day 1, 5 tabs on d ay 2, 4 tabs on day 3, 3 tabs on day 4, 2 tabs on day 5, 1 tab on day 6 MEDROL (REYNA) 4 MG TABS 728384 METHYLPREDNISOLONE Inactive CHERATUSSIN AC 100-10 MG/5ML SYRP 5ml po q6hr PRN Cough CHERATUSSIN AC 100-10 MG/5ML SYRP 250961 GUAIFENESIN-CODEINE Inacti ve TRIAMCINOLONE ACETONIDE 0.1 % CREA apply three times daily prn r beatrice TRIAMCINOLONE ACETONIDE 0.1 % CREA 3485703 TRIAMCINOLONE ACETONIDE Inactive AZITHROMYCIN 250 MG TABS 2 po qd x 1 day, then 1 po qd x 4 days AZITHROMYCIN 250 MG TABS 3785643 AZITHROMYCIN Inactiv e MEDROL (REYNA) 4 MG TABS 6 pills x 1 day, then 5 pill s x 1 day then 4 pills x 1 day, then 3 pills x 1 day, then 2 pills x 1 day, then 1 pill x 1 day, then stop MEDROL (REYNA) 4 MG TABS 497568 METHYLPREDNISOLONE Inactive AMOXICILLIN 500 MG CAP 1 tab by mouth 3 times daily x 10 days 20 13/03/08 AMOXICILLIN 500 MG CAP 035409 AMOXICILLIN Inactive AMOXICILLIN 500 MG CAP 1 tab by mouth 3 times daily x 10 days 20 14/04/28 AMOXICILLIN 500 MG CAP 335196 AMOXICILLIN Inactive ZITHROMAX 250 MG TAB 2 po today, then 1 po q days 2-5 ZITHROMAX 250 MG TAB 1366345 AZITHROMYCIN Inactive AUGMENTIN 875-125 MG TAB 1 po BID x 10 days AUGMENTIN 875- 125 MG TAB 417029 AMOXICILLIN-POT CLAVULANATE Inactive ZITHROMAX Z-REYNA 250 MG TABS 2 today, then 1 daily for 4 days 201 08/07/20 ZITHROMAX Z-REYNA 250 MG TABS 4510408 AZITHROMYCIN Inac tive ZITHROMAX 250 MG TAB 2 po today, then 1 po q days 2-5 ZITHROMAX 250 MG TAB 0634693 AZITHROMYCIN Inactive ZITHROMAX Z-REYNA 250 MG TABS 2 today, then 1 daily for 4 days 201 08/30/03 ZITHROMAX Z-REYNA 250 MG TABS 4021544 AZITHROMYCIN Inac tive CEFDINIR 300 MG CAPS 1 po BID x 10 days C EFDINIR 300 MG CAPS 20020704 CEFDINIR Inactive ZITHROMAX 250 MG TAB 2 po today, then 1 po q days 2-5 ZITHROMAX 250 MG TAB 8095656 AZITHROMYCIN Inactive LEVAQUIN 500 MG TAB 1 tablet by mouth daily LEVAQUIN 500 MG TAB 832205 LEVOFLOXACIN Inactive SINGULAIR 10 MG TABS 1 po qday for allergies 2 SINGULAIR 10 MG TABS 634128 MONTELUKAST SODIUM Inactive AMOXICILLIN 500 MG CAPS 2 po BID x 10 days AMOXICILLIN 500 MG CAPS 159809 AMOXICILLIN Inactive PREDNISONE 20 MG TAB 2 tabs daily for 3 days, 1 t ab daily for 3 days, 1/2 tab daily for 2 days PREDNISONE 20 MG TAB 576759 PREDNISON E Inactive ZITHROMAX Z-REYNA 250 MG TABS 2 today, then 1 daily for 4 days 201 09/29/14 ZITHROMAX Z-REYNA 250 MG TABS 6658606 AZITHROMYCIN Inac tive PREDNISONE 20 MG TAB 2 tabs daily for 3 days, 1 t ab daily for 3 days, 1/2 tab daily for 2 days PREDNISONE 20 MG TAB 265596 PREDNISON E Inactive ZITHROMAX 250 MG TAB 2 po today, then 1 po q days 2-5 ZITHROMAX 250 MG TAB 5576276 AZITHROMYCIN Inactive Vital Signs Date Name Value Unit Range Description blood pressure, diastolic 82 mm[Hg] BP srinivasan [...] - Chem istry sodium, serum 132 mmol/L 808-944 5112/07/12 potassium, serum 2.7 mmol/L 3.5-5.2 chloride, serum 93 mmol/L 98-107 carbon dioxide, venous blood 30.8 mmol/L 21.0-32 .0 blood glucose 107 mg/dL 65-110 calcium, serum 9.3 mg/dL 8.5-10.1 urea nitrogen, blood 12 mg/dL 7-18 creatinine, serum 1.00 mg/dL 0.60-1.30 sodium, serum 142 mmol/L 363-750 6839/07/17 potassium, serum 4.2 mmol/L 3.5-5.2 chloride, serum 106 mmol/L 98-107 carbon dioxide, venous blood 29.9 mmol/L 21.0-32 .0 blood glucose 108 mg/dL 65-110 calcium, serum 9.1 mg/dL 8.5-10.1 urea nitrogen, blood 11 mg/dL 7-18 creatinine, serum 0.81 mg/dL 0.60-1.30 Lab Report: Rapid Strep - Lab Microbial identification kit, rapid strep method Negative Negative Encounters Code Encounter Date Provider Facility CPT-06768 Level 3 Est. Patient 12:17:50 CDT Hugo Restrepo MD [facility] CPT-56104 Level 3 Est. Patient 13:42:38 CDT Italo [facility] CPT-63137 Level 3 Est. Patient 13:23:51 CDT Diya cobian [facility] CPT-02836 Level 3 Est. Patient 14:22:19 COMPUTER APPLICATIONS INSTRUCTOR Diya cobian [facility] CPT-69611 Level 3 Est. Patient 10:11:46 CDT Carlton rich MD [facility] CPT-50709 Level 3 Est. Patient 17:29:43 CDT Italo [facility] CPT-26722 Level 3 Est. Patient 11:58:06 CDT Italo [facility] CPT-67654 Level 4 Est. Patient 14:36:51 CDT Carlton rich MD [facility]-24753 Level 3 Est. Patient 18:16:00 COMPUTER APPLICATIONS INSTRUCTOR Blaine [facility]-40190 Level 3 Est. Patient 09:45:49 COMPUTER APPLICATIONS INSTRUCTOR Carlton rich MD [facility] named [facility]-83992 Level 3 Est. Patient 13:19:20 CDT Carlton rich MD [facility] named [facility]-25630 Level 3 Est. Patient 13:06:43 CDT Ridge tam DO [facility] named [facility]-75084 Level 3 Est. Patient 10:03:07 CDT Perez Mora MD Formerly named [facility]-37423 Level 3 Est. Patient 19:50:35 COMPUTER APPLICATIONS INSTRUCTOR Carlton rich MD Formerly named [facility]-36745 Level 4 Est. Patient 18:05:01 COMPUTER APPLICATIONS INSTRUCTOR Carlton rich MD Formerly named [facility]-25048 Level 3 Est. Patient 10:45:55 COMPUTER APPLICATIONS INSTRUCTOR Hugo Restrepo MD Formerly named [facility]-23383 Level 3 Est. Patient 14:12:49 CDT [facility]-30547 Level 3 Est. Patient 17:37:24 CDT Carlton rich MD Formerly named [facility]-88215 Level 3 Est. Patient 16:51:54 CDT Carlton rich MD Formerly named [facility]-60639 Level 3 Est. Patient 12:18:11 CDT Hugo Restrepo MD Formerly named [facility]-78531 Level 3 Est. Patient 11:30:25 CDT Marcy crisostomo MD, PhD Formerly named [facility]-86198 Level 3 Est. Patient 12:00:47 COMPUTER APPLICATIONS INSTRUCTOR Carlton rich MD [facility] CPT-84024 Level 3 Est. Patient 16:31:06 COMPUTER APPLICATIONS INSTRUCTOR Carlton rich MD [facility] CPT-77616 Level 3 Est. Patient 16:23:24 COMPUTER APPLICATIONS INSTRUCTOR Ridge tam [facility] CPT-48100 Level 3 Est. Patient 12:34:12 CDT Carlton rich MD [facility] CPT-31586 Level 2 Est. Patient 15:43:33 CDT Robi armstrong MD [facility] CPT-75351 Level 4 Est. Patient 14:04:44 CDT Carlton rich MD [facility] CPT-20787 Level 3 Est. Patient 05:47:59 CDT Ridge tam [facility] CPT-78569 Level 3 Est. Patient 13:12:53 COMPUTER APPLICATIONS INSTRUCTOR Carlton rich MD [facility] CPT-18502 Level 3 Est. Patient 14:26:53 CDT Hugo Restrepo MD [facility] Procedures Code Procedure Name Date Entry Date Standard Desc ription CPT-J1040 Depo Medrol 80 mg (Methyl Prednisolone A cetate) 10:42:44 CDT CPT-J1100 Decadron 8mg (Dexamethasone) 10:42:44 CDT 2 CPT-J0696 Rocephin 1gm Inj Solr 14:32:13 CDT CPT-J1020 Depo Medrol 60 mg (Methyl Prednisolone A cetate) 14:32:13 CDT CPT-J1100 Decadron 6mg (Dexamethasone) 14:32:13 CDT 2 CPT-52383 Hip bilat min 2V w AP pelvis 13:16:20 CDT 2 CPT-69043 Pelvis only 13:07:33 CDT CPT-66341 Spec Collection and Handling Fee 11:25:12 C DT CPT-43297 Fluzone Quadrivalent Intramuscular Suspe nsion 0.5 ML 14:31:55 CDT CPT-97526 Abx/Therapy Injection 13:28:47 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
--- OUTSIDE RECORDS SUMMARY | 2019-10-08 08:10 | XMS REPORT | Clinical Summary ---
Author Author Caitlin, Juliana Martinez Organization [facility] Address Unknown Phone Unavailable Allergies, [...] po qd x 5 days P REDNISONE [id number] No Longer Active Perez Mora MD Active PROAIR HFA 108 (90 BASE) MCG/ACT INHALATION AEROSOL SO LUTION 2 puffs four times a day as needed ALBUTEROL SULFATE 19537636215 No Long er Active Becky FUENTES Active ASPIRIN 81 MG ORAL TABLET 1 po qd ASPIRIN 70383493899 Active Carlton Hu MD Active PREDNISONE 20 MG ORAL TABLET 1 tab twice daily for 3 d ay, then one daily for three days PREDNISONE 60884763891 No Longer Active Carlton Hu MD Active AUGMENTIN 875-125 MG ORAL TABLET 1 po BID x 10 days 16/03/22 AMOXICILLIN-POT CLAVULANATE 78442007746 No Longer Active Elise Garcia APRN Active TERBINAFINE HCL 250 MG ORAL TABLET 1 qDay for nail fungus 7 TERBINAFINE HCL 57561462021 No Longer Active Carlton Hu MD A ctive TUSSIONEX PENNKINETIC ER 10-8 MG/5ML ORAL SUSPENSION E XTENDED RELEASE 5ml po q12hr PRN Cough HYDROCOD POLST-CHLORPHEN POLST 11494075084 Active Perez Mora MD Active AMOXICILLIN 500 MG ORAL CAPSULE 1 cap by mouth three times a day AMOXICILLIN 45618726129 No Longer Active Carlton Hu MD Active ELMIRON 100 MG ORAL CAPSULE 2 tablets in the am and 1 tablet at hs PENTOSAN POLYSULFATE SODIUM 53674058720 No Longer Active Robert Hu MD Active MUCINEX D 60-600 MG ORAL TABLET EXTENDED RELEASE 12 HOUR 1 t ab po q am PSEUDOEPHEDRINE-GUAIFENESIN 44801404998 No Longer Act nael Carlton Hu MD Active MUCINEX DM MAXIMUM STRENGTH 60-1200 MG ORAL TABLET EXT ENDED RELEASE 12 HOUR 1 tab po q am DEXTROMETHORPHAN-GUAIFENESIN 92851111054 No Longer Active Carlton Hu MD Active TUSSIONEX PENNKINETIC ER 10-8 MG/5ML ORAL SUSPENSION E XTENDED RELEASE 5ml po q12hr PRN Cough HYDROCOD POLST-CHLORPHEN POLST 5 7784199651 No Longer Active Carlton Hu MD Active POTASSIUM CHLORIDE ER 20 MEQ ORAL TABLET EXTENDED RELE ASE Take 1 by mouth 4 times daily for 7 days POTASSIUM CHLORIDE 78108647456 No Longer Active Carlton Hu MD Active ZITHROMAX 250 MG ORAL TABLET 2 po today, then 1 po q days 2-5 20 14/09/04 AZITHROMYCIN 01549778189 No Longer Active Elise Garcia APRN Active TUSSIONEX PENNKINETIC ER 10-8 MG/5ML ORAL SUSPENSION E XTENDED RELEASE 5 ml twice a day as needed for cough HYDROCOD POLST-CHLORPH EN POLST 25874716396 No Longer Active Elise Garcia APRN Active MONTELUKAST SODIUM 10 MG ORAL TABLET 1 po daily for Allergy MONTELUKAST SODIUM 14110999788 Active Carlton Hu MD Ac tive TUSSIONEX PENNKINETIC ER 10-8 MG/5ML ORAL SUSPENSION E XTENDED RELEASE 5ml po q12hr PRN Cough HYDROCOD POLST-CHLORPHEN POLST 5 3153117612 No Longer Active Hugo Restrepo MD Active GABAPENTIN 100 MG ORAL CAPSULE 1 po BID for fibromyalgia GABAPENTIN 27609575996 Active Carlton Hu MD Active LYRICA 100 MG ORAL CAPSULE Take 1 tab po BID for fibromyalgia 20 11/08/21 PREGABALIN 66045406814 No Longer Active Elise Garcia APRN A ctive PREDNISONE 20 MG ORAL TABLET 2 tabs daily for 3 days, 1 tab daily for 3 days, 1/2 tab daily for 2 days PREDNISONE 65274390065 No Longer Active Diya De Guzman APRN Active TUSSIONEX PENNKINETIC ER 10-8 MG/5ML ORAL SUSPENSION E XTENDED RELEASE 5 mL PO q 12 hrs PRN cough HYDROCOD POLST-CHLORPHEN POLST 318535 70157 No Longer Active Jillina Gege RICEN Active FLUTICASONE PROPIONATE 50 MCG/ACT NASAL SUSPENSION 2 s prays each nostril daily until bottle is empty FLUTICASONE PROPIONATE 456565886 99 No Longer Active Diya De Guzman APRN Active ASMANEX 60 METERED DOSES 220 MCG/INH INHALATION AEROSO L POWDER BREATH ACTIVATED 1 puff bid with rinse after MOMETASONE FUROATE 7560939 4102 No Longer Active Diya De Guzman SOIL ENGINEER Active ZITHROMAX Z-REYNA 250 MG ORAL TABLET 2 today, then 1 daily for 4 d ays AZITHROMYCIN 41559709931 No Longer Active Elise Garcia APRN Active TUSSIONEX PENNKINETIC ER 10-8 MG/5ML ORAL SUSPENSION E XTENDED RELEASE 5ml po q12hr PRN Cough HYDROCOD POLST-CHLORPHEN POLST 5 5327201641 No Longer Active Elise Garcia APRN Active PREDNISONE 20 MG ORAL TABLET 2 tabs daily for 3 days, 1 tab daily for 3 days, 1/2 tab daily for 2 days PREDNISONE 21375137223 No Longer Active Diya De Guzman APRN Active AMOXICILLIN 500 MG ORAL CAPSULE 2 po BID x 10 days 201 09/29/08 AMOXICILLIN 23942831503 No Longer Active Diya De Guzman APRN Act nael SINGULAIR 10 MG ORAL TABLET 1 po qday for allergies 20 14/01/12 MONTELUKAST SODIUM 46704801834 No Longer Active Carlton Hu MD Active LEVAQUIN 500 MG ORAL TABLET 1 tablet by mouth daily 20 13/09/24 LEVOFLOXACIN 06817292736 No Longer Active Carlton Hu MD Acti ve FLUTICASONE PROPIONATE 50 MCG/ACT NASAL SUSPENSION 2 s prays each nostril daily for 2 weeks, then 1 spray each nostril daily. FLUTICASONE PROPIONATE 59966022562 Active Elise Garcia APRN Active ZITHROMAX 250 MG ORAL TABLET 2 po today, then 1 po q days 2-5 20 13/08/10 AZITHROMYCIN 11963443879 No Longer Active Elise Garcia APRN Active XANAX 0.5 MG ORAL TABLET one tablet by mouth daily prn anxiety 2015 ALPRAZOLAM 04872720479 Active Carlton Hu MD Active CYMBALTA 30 MG ORAL CAPSULE DELAYED RELEASE PARTICLES 1 cap by mouth daily for depression DULOXETINE HCL 48722511733 Active Carlton beltrán MD Active CEFDINIR 300 MG ORAL CAPSULE 1 po BID x 10 days CEFDINIR 75128938495 No Longer Active Carlton Hu MD Active ZOCOR 40 MG ORAL TABLET 1 tab by mouth daily SI MVASTATIN 08833591253 No Longer Active Carlton Hu MD Active CYCLOBENZAPRINE HCL 10 MG ORAL TABLET 1 tablet by mouth BID prn had pain CYCLOBENZAPRINE HCL 35058328563 No Longer Active Jayden Hu MD Active LEVOFLOXACIN 500 MG ORAL TABLET 1 tab PO daily x 10 days LEVOFLOXACIN 35584789858 No Longer Active Carlton Hu MD Acti ve PREDNISONE 20 MG ORAL TABLET 3 tab PO qd x 2d, 2 tab P O qd x 2d, 1 tab PO qd x 2d, 1/2 tab PO qd x 2d PREDNISONE 15467758593 No Lo nger Active Carlton Hu MD Active FLUTICASONE PROPIONATE 50 MCG/ACT NASAL SUSPENSION 1 t o 2 sprays each nostril daily FLUTICASONE PROPIONATE 92242399420 No Longer Ac tive Blaine HERNANDEZ Active CHERATUSSIN AC 100-10 MG/5ML ORAL SYRUP 1 tsp by mouth every 4 hours as needed for cough GUAIFENESIN-CODEINE 13242523634 No Longe r Active Blaine HERNANDEZ Active PROMETHAZINE-CODEINE 6.25-10 MG/5ML ORAL SYRUP 1 tsp b y mouth every 6 hours if needed for cough PROMETHAZINE-CODEINE 46364378718 No Longer Active Blaine HERNANDEZ Active CHERATUSSIN AC 100-10 MG/5ML ORAL SYRUP 1 tsp by mouth every 4 hours as needed for cough GUAIFENESIN-CODEINE 57512104676 No Longe r Active Blaine HERNANDEZ Active ZITHROMAX Z-REYNA 250 MG ORAL TABLET 2 today, then 1 daily for 4 d ays AZITHROMYCIN 14522029452 No Longer Active Columba Raida Act nael ZITHROMAX 250 MG ORAL TABLET 2 po today, then 1 po q days 2-5 20 14/03/21 AZITHROMYCIN 07297542916 No Longer Active Carlton Hu MD Active ZITHROMAX Z-REYNA 250 MG ORAL TABLET 2 today, then 1 daily for 4 d ays AZITHROMYCIN 26345431507 No Longer Active Columba Raida Act nael AUGMENTIN 875-125 MG ORAL TABLET 1 po BID x 10 days 13/01/20 AMOXICILLIN-POT CLAVULANATE 09200951880 No Longer Active Diya De Guzman APRN Active ZITHROMAX 250 MG ORAL TABLET 2 po today, then 1 po q days 2-5 20 12/08/14 AZITHROMYCIN 21378908194 No Longer Active Carlton Hu MD Active TRAMADOL HCL 50 MG ORAL TABLET 1 po tid with ES Tylenol TRAMADOL HCL 66680624812 Active Carlton Hu MD Active PREMARIN 0.625 MG ORAL TABLET TAKE 1 TAB BY MOUTH DAILY ESTROGENS CONJUGATED 85433281889 No Longer Active Ridge Bess DO A ctive CYMBALTA 30 MG ORAL CAPSULE DELAYED RELEASE PARTICLES 1 cap by mouth daily DULOXETINE HCL 49631111816 No Longer Active Ridge tam DO Active AMOXICILLIN 500 MG ORAL CAPSULE 1 tab by mouth 3 times daily x 10 days AMOXICILLIN 78921033971 No Longer Active Carlton bustamante MD Active AMOXICILLIN 500 MG ORAL CAPSULE 1 tab by mouth 3 times daily x 10 days AMOXICILLIN 65930658904 No Longer Active Carlton bustamante MD Active PROMETHAZINE-CODEINE 6.25-10 MG/5ML ORAL SYRUP 1 tsp b y mouth every 8 hours prn cough PROMETHAZINE-CODEINE 15551356569 No Longer Acti ve Carlton Hu MD Active MEDROL 4 MG ORAL TABLET THERAPY PACK 6 pills x 1 day, then 5 pills x 1 day then 4 pills x 1 day, then 3 pills x 1 day, then 2 pills x 1 day, then 1 pill x 1 day, then stop METHYLPREDNISOLONE 10909619902 No Long er Active Perez Mora MD Active AZITHROMYCIN 250 MG ORAL TABLET 2 po qd x 1 day, then 1 po q d x 4 days AZITHROMYCIN 94968715603 No Longer Active Perez Ambriz MD Active SYMBICORT 160-4.5 MCG/ACT INHALATION AEROSOL 2 puffs bid wit h rinse after BUDESONIDE-FORMOTEROL FUMARATE 51162069546 N o Longer Active Perez Mora MD Active LYRICA 75 MG ORAL CAPSULE TAKE 1 CAPSULE BY MOUTH TWICE DAILY PREGABALIN 68028071687 No Longer Active Carlton Hu MD Acti ve TOPAMAX 25 MG ORAL TABLET 1 qHS x 1 week, then 1 BID x 1 week, then 1 qAM and 2 qHS x 1 week, then 2 BID (migraine prevention) T OPIRAMATE 63162029734 No Longer Active Jerica FUENTES Active TOPAMAX 50 MG ORAL TABLET take 1 tab po BID for migraines. 07/02 TOPIRAMATE 45343317168 No Longer Active Jerica FUENTES Active TOPAMAX 100 MG ORAL TABLET Take 1 tablet po bid TO PIRAMATE 52034111662 Active Carlton Hu MD Active TRIAMCINOLONE ACETONIDE 0.1 % EXTERNAL CREAM apply three roger es daily prn rash TRIAMCINOLONE ACETONIDE 68485338898 No Longer Active Carlton Hu MD Active PAXIL 40 MG ORAL TABLET take 1 tab po qday for depression 0 PAROXETINE HCL 48745510684 Active Carlton Hu MD Active CHERATUSSIN AC 100-10 MG/5ML ORAL SYRUP 5ml po q6hr PRN Cough 20 13/04/14 GUAIFENESIN-CODEINE 64544698490 No Longer Active Carlton Hu MD Active MEDROL 4 MG ORAL TABLET THERAPY PACK 6 tabs on day 1, 5 tabs on day 2, 4 tabs on day 3, 3 tabs on day 4, 2 tabs on day 5, 1 tab on day 6 2013 METHYLPREDNISOLONE 77287240880 No Longer Active Perez Mora MD Active AZITHROMYCIN 250 MG ORAL TABLET 2 po qd x 1 day, then 1 po q d x 4 days AZITHROMYCIN 34240253880 No Longer Active Perez Ambriz MD Active PROPRANOLOL HCL 60 MG ORAL TABLET 1 PO Q D PROPRANOLOL HCL 63961764162 No Longer Active Perez Mora MD Activ e CHERATUSSIN AC 100-10 MG/5ML ORAL SYRUP take one tsp po Q 6h ours prn cough GUAIFENESIN-CODEINE 48747028780 No Longer Active Zia Mora MD Active AUGMENTIN 875-125 MG ORAL TABLET 1 tab by mouth twice daily with food AMOXICILLIN-POT CLAVULANATE 17736390809 No Longer Act nael Perez Mora MD Active CHERATUSSIN AC 100-10 MG/5ML ORAL SYRUP 1 tsp by mouth every 4 hours as needed for cough GUAIFENESIN-CODEINE 52050733868 No Longe r Active Hugo Restrepo MD Active ACETAMINOPHEN-CODEINE #3 300-30 MG ORAL TABLET 1 PO Q 4-6 HRS NE N PAIN ACETAMINOPHEN-CODEINE 61895385849 No Longer Active Hugo Restrepo MD Active LEVAQUIN 500 MG ORAL TABLET take one po QD LEVO FLOXACIN 68046169998 No Longer Active Griffin HERNANDEZ Active PREDNISONE 20 MG ORAL TABLET Take 3 tabs daily for 3 d ays, 2 tabs daily for 3 days, 1 tab daily for 3 days, 1/2 tab daily for 3 days 11/07 PREDNISONE 61746591430 No Longer Active Carlton Hu MD Acti ve AVELOX 400 MG ORAL TABLET 1 tab by mouth daily MOXIFLOXACIN HCL 03756193311 No Longer Active Carlton Hu MD Active CHERATUSSIN AC 100-10 MG/5ML ORAL SYRUP 1 tsp by mouth every 4 hours as needed for cough GUAIFENESIN-CODEINE 80308500268 No Longe r Active Hugo Restrepo MD Active AVELOX 400 MG ORAL TABLET 1 tab by mouth daily MOXIFLOXACIN HCL 63587908496 No Longer Active Marcy De La Rosa MD PhD Active TERBINAFINE HCL 250 MG ORAL TABLET 1 qDay T ERBINAFINE HCL 86459227276 No Longer Active Marcy De La Rosa MD PhD Active CHERATUSSIN AC 100-10 MG/5ML ORAL SYRUP 1 tsp by mouth every 4 hours as needed for cough GUAIFENESIN-CODEINE 36157955800 No Longe r Active Marcy De La Rosa MD PhD Active AVELOX 400 MG ORAL TABLET 1 tab by mouth daily MOXIFLOXACIN HCL 20043587072 No Longer Active Marcy De La Rosa MD PhD Active HYDROCODONE-ACETAMINOPHEN 5-325 MG ORAL TABLET 1 po q 6hr PRN co ugh HYDROCODONE-ACETAMINOPHEN 30474291564 No Longer Active Marcy De La Rosa MD PhD Active PREDNISONE 20 MG ORAL TABLET 2 tabs daily for 3 days, 1 tab daily for 3 days, 1/2 tab daily for 2 days PREDNISONE 31705466005 No Longer Active Carlton Hu MD Active CEFDINIR 300 MG ORAL CAPSULE by mouth twice a day 2011 CEFDINIR 12771976587 No Longer Active Carlton Hu MD Acti ve HYDROCHLOROTHIAZIDE 25 MG ORAL TABLET 1 TAB PO DAILY HYDROCHLOROTHIAZIDE 46993077845 Active Carlton Hu MD A ctive ACETAMINOPHEN-CODEINE #3 300-30 MG ORAL TABLET 1 tablet po q 4-6 hrs prn pain ACETAMINOPHEN-CODEINE 54397325897 No Longer Active Ridge Bess DO Active ZITHROMAX 250 MG ORAL TABLET 2 po today, then 1 po q days 2-5 20 03/07/07 AZITHROMYCIN 44758061554 No Longer Active Carlton Hu MD Active CHERATUSSIN AC 100-10 MG/5ML ORAL SYRUP take 1 tsp po q4-6 h ours prn cough GUAIFENESIN-CODEINE 05126527702 No Longer Active Jayden Hu MD Active ACETAMINOPHEN-CODEINE #3 300-30 MG ORAL TABLET 1 PO Q 4-6 HR PRN PAIN ACETAMINOPHEN-CODEINE 16523578249 No Longer Active Arnol Hu MD Active LORTAB 7.5-500 MG/15ML ORAL ELIXIR 7.5 ml po q 4 hour prn cough HYDROCODONE-ACETAMINOPHEN 51548675980 No Longer Active Carlton Hu MD Active PREDNISONE 20 MG ORAL TABLET 1 po bid 3 days, then 1 po q day 3 days PREDNISONE 81446966939 No Longer Active Carlton Hu MD Active CEFDINIR 300 MG ORAL CAPSULE by mouth twice a day 2011 CEFDINIR 77857776425 No Longer Active Carlton Hu MD Acti ve CEFDINIR 300 MG ORAL CAPSULE by mouth twice a day 2010 CEFDINIR 27708080053 No Longer Active Carlton Hu MD Acti ve CEFDINIR 300 MG ORAL CAPSULE by mouth twice a day 2010 CEFDINIR 03977829644 No Longer Active Carlton Hu MD Acti ve TESSALON PERLES 100 MG ORAL CAPSULE 1 tablet by mouth 3 times daily as needed for cough BENZONATATE 90828285519 No Longer Active Carlton Hu MD Active CEFDINIR 300 MG ORAL CAPSULE by mouth twice a day 2010 CEFDINIR 51256750225 No Longer Active Carlton Hu MD Acti ve ZITHROMAX Z-REYNA 250 MG ORAL TABLET 2 today, then 1 daily for 4 d ays AZITHROMYCIN 74253106861 No Longer Active Hugo Restrepo MD Active TESSALON PERLES 100 MG ORAL CAPSULE 1 tablet by mouth 3 times daily as needed for cough TESSALON PERLES 100 MG ORAL CAPSULE 42228 7 BENZONATATE Inactive PREDNISONE 20 MG ORAL TABLET 1 po bid 3 days, then 1 po q day 3 days PREDNISONE 20 MG ORAL TABLET 271404 PREDNISONE Douglas ctive LORTAB 7.5-500 MG/15ML ORAL ELIXIR 7.5 [...] cough CHERATUSSIN AC 100-10 MG/5ML ORAL SYRUP 568453 GUAIFENESIN-CODEINE Inactive ACETAMINOPHEN-CODEINE #3 300-30 MG ORAL TABLET 1 tablet po q 4-6 hrs prn pain ACETAMINOPHEN-CODEINE #3 300-30 MG ORAL TABLET ACETAMINOPHEN-CODEINE Inactive HYDROCODONE-ACETAMINOPHEN 5-325 MG ORAL TABLET 1 po q 6hr PRN co ugh HYDROCODONE-ACETAMINOPHEN 5-325 MG ORAL TABLET 113883 HYDROCODONE-ACETAMINOPHEN Inactive AVELOX 400 MG ORAL TABLET 1 tab by mouth daily AVELOX 400 MG ORAL TABLET 720781 MOXIFLOXACIN HCL Inactive CHERATUSSIN AC 100-10 MG/5ML ORAL SYRUP 1 tsp by mouth every 4 hours as needed for cough CHERATUSSIN AC 100-10 MG/5ML ORAL SYRUP 9 54972 GUAIFENESIN-CODEINE Inactive TERBINAFINE HCL 250 MG ORAL TABLET 1 qDay 07/08 TERBINAFINE HCL 250 MG ORAL TABLET 312270 TERBINAFINE HCL Inactive CHERATUSSIN AC 100-10 MG/5ML ORAL SYRUP 1 tsp by mouth every 4 hours as needed for cough CHERATUSSIN AC 100-10 MG/5ML ORAL SYRUP 9 80292 GUAIFENESIN-CODEINE Inactive ACETAMINOPHEN-CODEINE #3 300-30 MG ORAL TABLET 1 PO Q 4-6 HRS NE N PAIN ACETAMINOPHEN-CODEINE #3 300-30 MG ORAL TABLET ACETAMINOPHEN-CODEINE Inactive CHERATUSSIN AC 100-10 MG/5ML ORAL SYRUP 1 tsp by mouth every 4 hours as needed for cough CHERATUSSIN AC 100-10 MG/5ML ORAL SYRUP 9 47651 GUAIFENESIN-CODEINE Inactive AUGMENTIN 875-125 MG ORAL TABLET 1 tab by mouth twice daily with food AUGMENTIN 875-125 MG ORAL TABLET 249391 AMOXICIL MADELINE-POT CLAVULANATE Inactive CHERATUSSIN AC 100-10 MG/5ML ORAL SYRUP take one tsp po Q 6h ours prn cough CHERATUSSIN AC 100-10 MG/5ML ORAL SYRUP 818632 GUAIFENESIN-CODEINE Inactive PROPRANOLOL HCL 60 MG ORAL TABLET 1 PO Q D PROPRANOLOL HCL 60 MG ORAL TABLET 734969 PROPRANOLOL HCL Inactive TOPAMAX 50 MG ORAL TABLET take 1 tab po BID for migraines. 07/02 TOPAMAX 50 MG ORAL TABLET 390255 TOPIRAMATE Inacti ve TOPAMAX 25 MG ORAL TABLET 1 qHS x 1 week, then 1 BID x 1 week, then 1 qAM and 2 qHS x 1 week, then 2 BID (migraine prevention) TOPAMAX 25 MG ORAL TABLET 930353 TOPIRAMATE Inactive LYRICA 75 MG ORAL CAPSULE TAKE 1 CAPSULE BY MOUTH TWICE DAILY LYRICA 75 MG ORAL CAPSULE PREGABALIN Inactive SYMBICORT 160-4.5 MCG/ACT INHALATION AEROSOL 2 puffs bid wit h rinse after SYMBICORT 160-4.5 MCG/ACT INHALATION AEROSOL BUDESONIDE- FORMOTEROL FUMARATE Inactive PROMETHAZINE-CODEINE 6.25-10 MG/5ML ORAL SYRUP 1 tsp b y mouth every 8 hours prn cough PROMETHAZINE-CODEINE 6.25-10 MG/ 5ML ORAL SYRUP 357185 PROMETHAZINE-CODEINE Inactive CYMBALTA 30 MG ORAL CAPSULE DELAYED RELEASE PARTICLES 1 cap by mouth daily CYMBALTA 30 MG ORAL CAPSULE DELAYED RELE ASE PARTICLES 253666 DULOXETINE HCL Inactive PREMARIN 0.625 MG ORAL TABLET TAKE 1 TAB BY MOUTH DAILY PREMARIN 0.625 MG ORAL TABLET ESTROGENS CONJUGATED Inactive CHERATUSSIN AC 100-10 MG/5ML ORAL SYRUP 1 tsp by mouth every 4 hours as needed for cough CHERATUSSIN AC 100-10 MG/5ML ORAL SYRUP 9 93013 GUAIFENESIN-CODEINE Inactive PROMETHAZINE-CODEINE 6.25-10 MG/5ML ORAL SYRUP 1 tsp b y mouth every 6 hours if needed for cough PROMETHAZINE-CODEINE 6.25-10 MG/5ML ORAL SYRUP 159787 PROMETHAZINE-CODEINE Inactive CHERATUSSIN AC 100-10 MG/5ML ORAL SYRUP 1 tsp by mouth every 4 hours as needed for cough CHERATUSSIN AC 100-10 MG/5ML ORAL SYRUP 9 74254 GUAIFENESIN-CODEINE Inactive FLUTICASONE PROPIONATE 50 MCG/ACT NASAL SUSPENSION 1 t o 2 sprays each nostril daily FLUTICASONE PROPIONATE 50 MCG/AC T NASAL SUSPENSION 4722572 FLUTICASONE PROPIONATE Inactive PREDNISONE 20 MG ORAL TABLET 3 tab PO qd x 2d, 2 tab P O qd x 2d, 1 tab PO qd x 2d, 1/2 tab PO qd x 2d PREDNISONE 20 MG ORAL TAB LET 986016 PREDNISONE Inactive LEVOFLOXACIN 500 MG ORAL TABLET 1 tab PO daily x 10 days LEVOFLOXACIN 500 MG ORAL TABLET 500046 LEVOFLOXACIN Inactive CYCLOBENZAPRINE HCL 10 MG ORAL TABLET 1 tablet by mouth BID prn had pain CYCLOBENZAPRINE HCL 10 MG ORAL TABLET 205283 CYCLOBENZAPRINE HCL Inactive ZOCOR 40 MG ORAL TABLET 1 tab by mouth daily 4 ZOCOR 40 MG ORAL TABLET 490713 SIMVASTATIN Inactive TUSSIONEX PENNKINETIC ER 10-8 MG/5ML [...] FLUTICASONE PROPIO EFE 50 MCG/ACT NASAL SUSPENSION 0384754 FLUTICASONE PROPIONATE Inactive TUSSIONEX PENNKINETIC ER 10-8 [...] three days PREDNISONE 20 MG ORAL TABLET 118883 PREDNIS ONE Inactive PROAIR HFA 108 (90 BASE) MCG/ACT INHALATION AEROSOL SO LUTION 2 puffs four times a day as needed PROAIR HFA 108 (90 B ASE) MCG/ACT INHALATION AEROSOL SOLUTION ALBUTEROL SULFATE Inactive ZITHROMAX Z-REYNA 250 MG ORAL TABLET 2 today, then 1 daily for 4 d ays ZITHROMAX Z-REYNA 250 MG ORAL TABLET 384937 AZITHROMYCIN Inactive CEFDINIR 300 MG ORAL CAPSULE by mouth twice a day 2010 CEFDINIR 300 MG ORAL CAPSULE 230188 CEFDINIR Inactive CEFDINIR 300 MG ORAL CAPSULE [...] 2-5 03/07/07 ZITHROMAX 250 MG ORAL TABLET 036630 AZITHROMYCIN Greer ctive CEFDINIR 300 MG ORAL CAPSULE by mouth twice a day 2011 CEFDINIR 300 MG ORAL CAPSULE 20020704 CEFDINIR Inactive PREDNISONE 20 MG ORAL TABLET 2 tabs daily for 3 days, 1 tab daily for 3 days, 1/2 tab daily for 2 days PREDNISONE 20 MG ORAL T ABLET 526253 PREDNISONE Inactive AVELOX 400 MG ORAL TABLET 1 tab by mouth daily AVELOX 400 MG ORAL TABLET 513481 MOXIFLOXACIN HCL Inactive AVELOX 400 MG ORAL TABLET 1 tab by mouth daily AVELOX 400 MG ORAL TABLET 427555 MOXIFLOXACIN HCL Inactive PREDNISONE 20 MG ORAL TABLET Take 3 tabs daily for 3 d ays, 2 tabs daily for 3 days, 1 tab daily for 3 days, 1/2 tab daily for 3 days 11/07 PREDNISONE 20 MG ORAL TABLET 789314 PREDNISONE Inactive LEVAQUIN 500 MG ORAL TABLET take one po QD LEVAQUIN 500 MG ORAL TABLET 326601 LEVOFLOXACIN Inactive AZITHROMYCIN 250 MG ORAL TABLET 2 po qd x 1 day, then 1 po q d x 4 days AZITHROMYCIN 250 MG ORAL TABLET 909874 AZITHROMY GIOVANNI Inactive MEDROL 4 MG ORAL TABLET THERAPY PACK 6 tabs on day 1, 5 tabs on day 2, 4 tabs on day 3, 3 tabs on day 4, 2 tabs on day 5, 1 tab on day 6 2013 MEDROL 4 MG ORAL TABLET THERAPY PACK 283588 METHYLPREDNISOLONE Greer ctive CHERATUSSIN AC 100-10 MG/5ML ORAL SYRUP 5ml po q6hr PRN Cough 20 13/04/14 CHERATUSSIN AC 100-10 MG/5ML ORAL SYRUP 379688 GUAIFENE SIN-CODEINE Inactive TRIAMCINOLONE ACETONIDE 0.1 % EXTERNAL CREAM apply three roger es daily prn rash TRIAMCINOLONE ACETONIDE 0.1 % EXTERNAL CREAM 101 4314 TRIAMCINOLONE ACETONIDE Inactive AZITHROMYCIN 250 MG ORAL TABLET 2 po qd x 1 day, then 1 po q d x 4 days AZITHROMYCIN 250 MG ORAL TABLET 231300 AZITHROMY GIOVANNI Inactive MEDROL 4 MG ORAL TABLET THERAPY PACK 6 pills x 1 day, then 5 pills x 1 day then 4 pills x 1 day, then 3 pills x 1 day, then 2 pills x 1 day, then 1 pill x 1 day, then stop MEDROL 4 MG ORAL TABLET THERAPY PACK 280392 METHYLPREDNISOLONE Inactive AMOXICILLIN 500 MG ORAL CAPSULE 1 tab by mouth 3 times daily x 10 days AMOXICILLIN 500 MG ORAL CAPSULE 454746 AMOXICILL IN Inactive AMOXICILLIN 500 MG ORAL CAPSULE 1 tab by mouth 3 times daily x 10 days AMOXICILLIN 500 MG ORAL CAPSULE 288077 AMOXICILL IN Inactive ZITHROMAX 250 MG ORAL TABLET 2 po today, then 1 po q days 2-5 20 12/08/14 ZITHROMAX 250 MG ORAL TABLET 061934 AZITHROMYCIN Douglas ctive AUGMENTIN 875-125 MG ORAL TABLET 1 po BID x 10 days 20 13/01/20 AUGMENTIN 875-125 MG ORAL TABLET 485233 AMOXICILLIN-POT CLAVULANATE Inactive ZITHROMAX Z-REYNA 250 MG ORAL TABLET 2 today, then 1 daily for 4 d ays ZITHROMAX Z-REYNA 250 MG ORAL TABLET 575597 AZITHROMYCIN Inactive ZITHROMAX 250 MG ORAL TABLET 2 po today, then 1 po q days 2-5 20 14/03/21 ZITHROMAX 250 MG ORAL TABLET 448513 AZITHROMYCIN Douglas ctive ZITHROMAX Z-REYNA 250 MG ORAL TABLET 2 today, then 1 daily for 4 d ays ZITHROMAX Z-REYNA 250 MG ORAL TABLET 649102 AZITHROMYCIN Inactive CEFDINIR 300 MG ORAL CAPSULE 1 po BID x 10 days 06/21 CEFDINIR 300 MG ORAL CAPSULE 20020704 CEFDINIR Inactive ZITHROMAX 250 MG ORAL TABLET 2 po today, then 1 po q days 2-5 20 13/08/10 ZITHROMAX 250 MG ORAL TABLET 015944 AZITHROMYCIN Greer ctive LEVAQUIN 500 MG ORAL TABLET 1 tablet by mouth daily 13/09/24 LEVAQUIN 500 MG ORAL TABLET 19971102 LEVOFLOXACIN Inactive SINGULAIR 10 MG ORAL TABLET 1 po qday for allergies 20 14/01/12 SINGULAIR 10 MG ORAL TABLET 20010504 MONTELUKAST SODIUM Inactive AMOXICILLIN 500 MG ORAL CAPSULE 2 po BID x 10 days 201 09/29/08 AMOXICILLIN 500 MG ORAL CAPSULE 306167 AMOXICILLIN Inactive PREDNISONE 20 MG ORAL TABLET 2 tabs daily for 3 days, 1 tab daily for 3 days, 1/2 tab daily for 2 days PREDNISONE 20 MG ORAL T ABLET 143807 PREDNISONE Inactive ZITHROMAX Z-REYNA 250 MG ORAL TABLET 2 today, then 1 daily for 4 d ays ZITHROMAX Z-REYNA 250 MG ORAL TABLET 261943 AZITHROMYCIN Inactive PREDNISONE 20 MG ORAL TABLET 2 tabs daily for 3 days, 1 tab daily for 3 days, 1/2 tab daily for 2 days PREDNISONE 20 MG ORAL T ABLET 672392 PREDNISONE Inactive ZITHROMAX 250 MG ORAL TABLET 2 po today, then 1 po q days 2-5 20 14/09/04 ZITHROMAX 250 MG ORAL TABLET 123341 AZITHROMYCIN Greer ctive AMOXICILLIN 500 MG ORAL CAPSULE 1 cap by mouth three times a day AMOXICILLIN 500 MG ORAL CAPSULE 748299 AMOXICILLIN Inactive TERBINAFINE HCL 250 MG ORAL TABLET 1 qDay for nail fungus 7 TERBINAFINE HCL 250 MG ORAL TABLET 078126 TERBINAFINE HCL Inact nael AUGMENTIN 875-125 MG ORAL TABLET 1 po BID x 10 days 16/03/22 AUGMENTIN 875-125 MG ORAL TABLET 662535 AMOXICILLIN-POT CLAVULANATE Inactive PREDNISONE 20 MG ORAL TABLET 2 po qd x 5 days PREDNISONE 20 MG ORAL TABLET 059224 PREDNISONE Inactive Vital Signs Date Name Value [...] weight E&M 143.5 [lb_av] Weight Measure d Diagnostic Results Date Name Value Unit Range Description Lab Report: Basic Metabolic Panel - Chem istry sodium, serum 132 mmol/L 760-481 9760/07/12 potassium, serum 2.7 mmol/L 3.5-5.2 chloride, serum 93 mmol/L 98-107 carbon dioxide, venous blood 30.8 mmol/L 21.0-32 .0 blood glucose 107 mg/dL 65-110 calcium, serum 9.3 mg/dL 8.5-10.1 urea nitrogen, blood 12 mg/dL 7-18 creatinine, serum 1.00 mg/dL 0.60-1.30 sodium, serum 142 mmol/L 429-089 5009/07/17 potassium, serum 4.2 mmol/L 3.5-5.2 chloride, serum 106 mmol/L 98-107 carbon dioxide, venous blood 29.9 mmol/L 21.0-32 .0 blood glucose 108 mg/dL 65-110 calcium, serum 9.1 mg/dL 8.5-10.1 urea nitrogen, blood 11 mg/dL 7-18 creatinine, serum 0.81 mg/dL 0.60-1.30 sodium, serum 139 mmol/L 137-726 1955 potassium, serum 3.6 mmol/L 3.5-5.2 chloride, serum 100 mmol/L 98-107 carbon dioxide, venous blood 30.3 mmol/L 21.0-32 .0 blood glucose 101 mg/dL 65-110 calcium, serum 9.4 mg/dL 8.5-10.1 urea nitrogen, blood 10 mg/dL 7- creatinine, serum 0.96 mg/dL 0.60-1.30 Lab Report: Rapid Strep - Lab Microbial identification kit, rapid strep method Negative Negative Encounters Code Encounter Date Provider Facility CPT-16030 Level 3 Est. Patient 11:34:49 [employer] Perez Mora MD [facility] CPT-79208 Level 4 Est. Patient 09:51:32 [employer] Carlton rich MD [facility] CPT-72520 Level 3 Est. Patient 10:26:00 [employer] Elise stephenson [facility] CPT-07571 Level 3 Est. Patient 13:35:41 [employer] Carlton rich MD [facility] CPT-15209 Level 3 Est. Patient 10:03:52 [employer] Carlton rich MD [facility] CPT-28285 Level 3 Est. Patient 12:17:50 CDT Hugo Restrepo MD [facility] CPT-64430 Level 3 Est. Patient 13:42:38 CDT Elise stephenson [facility] CPT-22946 Level 3 Est. Patient 13:23:51 CDT Diya cobian [facility]-08401 Level 3 Est. Patient 14:22:19 [employer] Diya cobian [facility] CPT-08589 Level 3 Est. Patient 10:11:46 CDT Carlton rich MD [facility] CPT-84265 Level 3 Est. Patient 17:29:43 CDT Elise Are ll SOIL ENGINEER [facility] CPT-24815 Level 3 Est. Patient 11:58:06 CDT Elise Are ll SO[employer] ENGINE[employer] [facility] CPT-93220 Level 4 Est. Patient 14:36:51 CDT Carlton rich MD [facility] CPT-45327 Level 3 Est. Patient 18:16:00 [employer] Blaine Freeman [facility] CPT-09873 Level 3 Est. Patient 09:45:49 [employer] Carlton rich MD [facility] CPT-80277 Level 3 Est. Patient 13:19:20 CDT Carlton rich MD [facility] CPT-42707 Level 3 Est. Patient 13:06:43 CDT Ridge tam DO [facility] CPT-38352 Level 3 Est. Patient 10:03:07 CDT Perez Mora MD [facility] CPT-85107 Level 3 Est. Patient 19:50:35 [employer] Carlton rich MD [facility] CPT-69806 Level 4 Est. Patient 18:05:01 [employer] Carlton rich MD [facility] CPT-18195 Level 3 Est. Patient 10:45:55 [employer] Hugo Restrepo MD [facility] CPT-58408 Level 3 Est. Patient 14:12:49 CDT Griffin lincoln [facility] CPT-76248 Level 3 Est. Patient 17:37:24 CDT Carlton rich MD [facility] CPT-68770 Level 3 Est. Patient 16:51:54 CDT Carlton rich MD [facility] CPT-80613 Level 3 Est. Patient 12:18:11 CDT Hugo Restrepo MD [facility] CPT-17664 Level 3 Est. Patient 11:30:25 CDT Marcy crisostomo MD PhD [facility] CPT-16775 Level 3 Est. Patient 12:00:47 [employer] Carlton rich MD [facility] CPT-18355 Level 3 Est. Patient 16:31:06 [employer] Carlton rich MD [facility] CPT-03419 Level 3 Est. Patient 16:23:24 [employer]UFA[employer]OLLER Ridge tam [facility] CPT-22326 Level 3 Est. Patient 12:34:12 CDT Carlton rich MD [facility] CPT-21799 Level 2 Est. Patient 15:43:33 CDT Robi armstrong MD [facility] CPT-03357 Level 4 Est. Patient 14:04:44 CDT Carlton rich MD [facility] CPT-95462 Level 3 Est. Patient 05:47:[address] [facility] CPT-74655 Level 3 Est. Patient 13:12:53 [employer] Carlton rich MD [facility] CPT-71236 Level 3 Est. Patient 14:26:53 CDT Hugo Restrepo MD [facility] Procedures Code Procedure Name Date Entry Date Standard Desc ription CPT-J1040 Depo Medrol 80 mg (Methyl Prednisolone A cetate) 10:42:44 CDT CPT-J1100 Decadron 8mg (Dexamethasone) 10:42:44 CDT 2 CPT-J0696 Rocephin 1gm Inj Solr 14:32:13 CDT CPT-J1020 Depo Medrol 60 mg (Methyl Prednisolone A cetate) 14:32:13 CDT CPT-J1100 Decadron 6mg (Dexamethasone) 14:32:13 CDT 2 CPT-56659 Hip bilat min 2V w AP pelvis 13:16:20 CDT 2 CPT-14887 Pelvis only 13:07:33 CDT CPT-14694 Spec Collection and Handling Fee 11:25:12 C DT CPT-69790 Fluzone Quadrivalent Intramuscular Suspe nsion 0.5 ML 14:31:55 CDT CPT-28863 Abx/Therapy Injection 13:28:47 [employer] CPT-J2930 Solu Medrol 125 mg (Methyl Prednisolone Sodium Succinate) 12:00:47 [employer] CPT-65162 Venipuncture Draw Fee 11:33:31 CDT CPT-14626 EKG Trac and Interp 11:21:09 CDT CPT-61509 Chest 2V Frontal and Lat 11:21:09 CDT 12/15 CPT-91129 Venipuncture Draw Fee 08:02:34 CDT CPT-95045 Chest 2V Frontal and Lat 05:47:59 CDT 06/05
--- OUTSIDE RECORDS SUMMARY | 2019-10-08 08:10 | XMS REPORT | Clinical Summary ---
Author Author Admin, Juliana Martinez Organization [facility] Address Unknown Phone Unavailable Allergies, Adverse Reactions, [...] mellitus MAXILLARY SINUSITIS 473.0 Resolved Marcy De L aRosa MD PhD Chronic maxillary sinusitis SEASONAL ALLERGIC [...] PhD Routine general medical examination at a [facility] MAMMOGRAM, ABNORMAL 793.80 Active Carlton [...] ions Hip pain, left 719.45 Active Ridge W Shahriar DO Pain in joint involving pelvic region and thigh Pelvic pain, acute 789.09 Active Ridge Bess DO Abdominal pain, other specified site; multiple sites Sinusitis 473.9 Active Diya De Guzman [employer]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 Unspecified sinusitis (chronic) Bronchitis-Acute 466.0 Active Carlton Hu MD Acute bronchitis URI - acute 465.9 Active Elise Whitmore [employer]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 Acute upper respiratory infections of unspecified site [...] Generic Name NDC Status Provider Patient Instruction ZITHROMAX 250 MG TAB 2 po today, then 1 po q days 2-5 AZITHROMYCIN 14386331492 No Longer Active Elise Whitmore APRN Acti ve XANAX 0.5 MG TABS one tablet by mouth daily prn anxiety ALPRAZOLAM 83595994608 Active Carlton Hu MD Active CYMBALTA 30 MG CPEP 1 cap by mouth daily for depression DULOXETINE HCL 13375008921 Active Carlton Hu MD Active CEFDINIR 300 MG CAPS 1 po BID x 10 days CEFDINI R 27318518090 No Longer Active Carlton Hu MD Active ZOCOR 40 MG TAB 1 tab by mouth daily SIMVASTATI N 73399562343 No Longer Active Carlton Hu MD Active CYCLOBENZAPRINE HCL 10 MG TABS 1 tablet by mouth BID prn had cherelle n CYCLOBENZAPRINE HCL 77859857529 No Longer Active Carlton Hu MD Active LEVOFLOXACIN 500 MG ORAL TABS 1 tab PO daily x 10 days LEVOFLOXACIN 99839388048 No Longer Active Carlton Hu MD Acti ve PREDNISONE 20 MG ORAL TABS 3 tab PO qd x 2d, 2 tab PO qd x 2d, 1 tab PO qd x 2d, 1/2 tab PO qd x 2d PREDNISONE 05873045790 No Longer Active Carlton Hu MD Active TUSSIONEX PENNKINETIC ER 10-8 MG/5ML ORAL LQCR 5 mL PO q 12 hrs PRN cough HYDROCOD POLST-CHLORPHEN POLST 32511587850 Active Elise Whitmore APRN Active FLUTICASONE PROPIONATE 50 MCG/ACT SUSP 1 to 2 sprays each no stril daily FLUTICASONE PROPIONATE 28609967026 No Longer Active T homas W Cloven PA Active CHERATUSSIN AC 100-10 MG/5ML SYRP 1 tsp by mouth every 4 hours as needed for cough GUAIFENESIN-CODEINE 74098398064 No Longer Activ e Blaine HERNANDEZ Active PROMETHAZINE-CODEINE 6.25-10 MG/5ML SYRP 1 tsp by mout h every 6 hours if needed for cough PROMETHAZINE-CODEINE 92694707117 No Long er Active Blaine HERNANDEZ Active CHERATUSSIN AC 100-10 MG/5ML SYRP 1 tsp by mouth every 4 hours as needed for cough GUAIFENESIN-CODEINE 57164620303 No Longer Activ e Blaine HERNANDEZ Active ZITHROMAX Z-REYNA 250 MG TABS 2 today, then 1 daily for 4 days 201 08/30/03 AZITHROMYCIN 12238096911 No Longer Active Columba Raida Act nael ZITHROMAX 250 MG TAB 2 po today, then 1 po q days 2-5 AZITHROMYCIN 00772531788 No Longer Active Carlton Hu MD Acti ve ZITHROMAX Z-REYNA 250 MG TABS 2 today, then 1 daily for 4 days 201 08/07/20 AZITHROMYCIN 05027954581 No Longer Active Columba Raida Act nael AUGMENTIN 875-125 MG TAB 1 po BID x 10 days AMOXICILLIN- POT CLAVULANATE 81545242282 No Longer Active Diya De Guzman APRN Active ZITHROMAX 250 MG TAB 2 po today, then 1 po q days 2-5 AZITHROMYCIN 73939861539 No Longer Active Carlton Hu MD Acti ve TRAMADOL HCL 50 MG TABS 1 po tid with ES Tylenol TRAMADOL HCL 58349791552 Active Carlton Hu MD Active PREMARIN 0.625 MG TABS TAKE 1 TAB BY MOUTH DAILY 07/25 ESTROGENS CONJUGATED 67916120697 No Longer Active Ridge Bess DO Active CYMBALTA 30 MG CPEP 1 cap by mouth daily DULOXE SNEHA HCL 69447761998 No Longer Active Ridge Bess DO Active AMOXICILLIN 500 MG CAP 1 tab by mouth 3 times daily x 10 days 20 14/04/28 AMOXICILLIN 85597993295 No Longer Active Carlton Hu MD Active AMOXICILLIN 500 MG CAP 1 tab by mouth 3 times daily x 10 days 20 13/03/08 AMOXICILLIN 91387541742 No Longer Active Carlton Hu MD Active PROMETHAZINE-CODEINE 6.25-10 MG/5ML SYRP 1 tsp by mouth ever y 8 hours prn cough PROMETHAZINE-CODEINE 35537026937 No Longer Active Robert Hu MD Active MEDROL (REYNA) 4 MG TABS 6 pills x 1 day, then 5 pill s x 1 day then 4 pills x 1 day, then 3 pills x 1 day, then 2 pills x 1 day, then 1 pill x 1 day, then stop METHYLPREDNISOLONE 55695871081 No Longer Active Parris Mora MD Active AZITHROMYCIN 250 MG TABS 2 po qd x 1 day, then 1 po qd x 4 days AZITHROMYCIN 33277895283 No Longer Active Perez Mora MD Active SYMBICORT 160-4.5 MCG/ACT AERO 2 puffs bid with rinse after 2011 BUDESONIDE-FORMOTEROL FUMARATE 93211990543 No Longer Active Perez Mora MD Active LYRICA 75 MG CAPS TAKE 1 CAPSULE BY MOUTH TWICE DAILY 2013 PREGABALIN 11864451474 No Longer Active Carlton Hu MD Active LYRICA 100 MG CAPS Take 1 tab po BID for fibromyalgia PREGABALIN 02156179525 Active Elise Whitmore APRN Active TOPAMAX 25 MG TABS 1 qHS x 1 week, then 1 BID x 1 week, then 1 qAM and 2 qHS x 1 week, then 2 BID (migraine prevention) TOPIRAMAT E 91166751450 No Longer Active Jerica FUENTES Active TOPAMAX 50 MG TABS take 1 tab po BID for migraines. 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 Active CHERATUSSIN AC 100-10 MG/5ML SYRP 5ml po q6hr PRN Cough GUAIFENESIN-CODEINE 24233199655 No Longer Active Carlton Hu MD Active MEDROL (REYNA) 4 MG TABS 6 tabs on day 1, 5 tabs on d ay 2, 4 tabs on day 3, 3 tabs on day 4, 2 tabs on day 5, 1 tab on day 6 METHYLPREDNISOLONE 13847648959 No Longer Active Perez Mora MD Active AZITHROMYCIN 250 MG TABS 2 po qd x 1 day, then 1 po qd x 4 days AZITHROMYCIN 07259172406 No Longer Active Perez Mora MD Active PROPRANOLOL HCL 60 MG TABS 1 PO Q D PROPRANOL OL HCL 76828477008 No Longer Active Perez Mora MD Active CHERATUSSIN AC 100-10 MG/5ML SYRP take one tsp po Q 6hours prn c ough GUAIFENESIN-CODEINE 88616242387 No Longer Active Perez Means Active AUGMENTIN 875-125 MG TAB 1 tab by mouth twice daily with food 20 12/03/31 AMOXICILLIN-POT CLAVULANATE 56829991760 No Longer Active Chanel Mora MD Active CHERATUSSIN AC 100-10 MG/5ML SYRP 1 tsp by mouth every 4 hours as needed for cough GUAIFENESIN-CODEINE 35431940882 No Longer Activ lidia Restrepo MD Active ACETAMINOPHEN-CODEINE #3 300-30 MG TABS 1 PO Q 4-6 HRS PRN PAIN ACETAMINOPHEN-CODEINE 11436469133 No Longer Active Hugo Restrepo MD Active LEVAQUIN 500 MG TABS take one po QD LEVOFLOXACI N 11185979100 No Longer Active Griffin HERNANDEZ Active PREDNISONE 20 MG TAB Take 3 tabs daily for 3 days , 2 tabs daily for 3 days, 1 tab daily for 3 days, 1/2 tab daily for 3 days P REDNISONE 35704352856 No Longer Active Carlton Hu MD Active AVELOX 400 MG TABS 1 tab by mouth daily MOXIFLO XACIN HCL 68562017530 No Longer Active Carlton Hu MD Active CHERATUSSIN AC 100-10 MG/5ML SYRP 1 tsp by mouth every 4 hours as needed for cough GUAIFENESIN-CODEINE 30234516081 No Longer Activ e Hugo Restrepo MD Active AVELOX 400 MG TABS 1 tab by mouth daily MOXIFLO XACIN HCL 20988918616 No Longer Active Marcy De La Rosa MD PhD Active TERBINAFINE HCL 250 MG TABS 1 qDay TERBINAF INE HCL 43519811655 No Longer Active Marcy De La Rosa MD PhD Active CHERATUSSIN AC 100-10 MG/5ML SYRP 1 tsp by mouth every 4 hours as needed for cough GUAIFENESIN-CODEINE 92973992545 No Longer Activ e Marcy De La Rosa MD PhD Active AVELOX 400 MG TABS 1 tab by mouth daily MOXIFLO XACIN HCL 34201131302 No Longer Active Marcy De La Rosa MD PhD Active HYDROCODONE-ACETAMINOPHEN 5-325 MG TABS 1 po q 6hr PRN cough 201 05/09/16 HYDROCODONE-ACETAMINOPHEN 66020216230 No Longer Active Marcy De La Rosa MD PhD Active PREDNISONE 20 MG TAB 2 tabs daily for 3 days, 1 t ab daily for 3 days, 1/2 tab daily for 2 days PREDNISONE 92016712660 No Longer Active Carlton Hu MD Active CEFDINIR 300 MG CAPS by mouth twice a day CEFDI ODILIA 94170169022 No Longer Active Carlton Hu MD Active HYDROCHLOROTHIAZIDE 25 MG TABS 1 TAB PO DAILY H YDROCHLOROTHIAZIDE 26283810800 Active Carlton Hu MD Active ACETAMINOPHEN-CODEINE #3 300-30 MG TABS 1 tablet po q 4-6hrs prn pain ACETAMINOPHEN-CODEINE 83839239278 No Longer Active Ridge Bess DO Active ZITHROMAX 250 MG TAB 2 po today, then 1 po q days 2-5 AZITHROMYCIN 26422640620 No Longer Active Carlton Hu MD Acti ve CHERATUSSIN AC 100-10 MG/5ML SYRP take 1 tsp po q4-6 hours prn c ough GUAIFENESIN-CODEINE 62498664578 No Longer Active Carlton Hu MD Active ACETAMINOPHEN-CODEINE #3 300-30 MG TABS 1 PO Q 4-6 HR PRN PAIN 2 ACETAMINOPHEN-CODEINE 23091711660 No Longer Active Carlton rich MD Active LORTAB 7.5-500 MG/15ML ELIX 7.5 ml po q 4 hour prn cough HYDROCODONE-ACETAMINOPHEN 23114889611 No Longer Active Carlton Hu MD Active PREDNISONE 20 MG TAB 1 po bid 3 days, then 1 po q day 3 days 201 05/03/07 PREDNISONE 63784828251 No Longer Active Carlton Hu MD Active ELMIRON 100 MG CAPS 2 tablets in the am and 1 tablet at hs PENTOSAN POLYSULFATE SODIUM 69042711307 Active Carlton Hu MD Ac tive CEFDINIR 300 MG CAPS by mouth twice a day CEFDI ODILIA 12681799499 No Longer Active Carlton Hu MD Active CEFDINIR 300 MG CAPS by mouth twice a day CEFDI ODILIA 16927828858 No Longer Active Carlton Hu MD Active CEFDINIR 300 MG CAPS by mouth twice a day CEFDI ODILIA 70478969567 No Longer Active Carlton Hu MD Active TESSALON PERLES 100 MG CAP 1 tablet by mouth 3 times daily a s needed for cough BENZONATATE 98927332192 No Longer Active Carlton bustamante MD Active CEFDINIR 300 MG CAPS by mouth twice a day CEFDI ODILIA 66009528212 No Longer Active Carlton Hu MD Active ZITHROMAX Z-REYNA 250 MG TABS 2 today, then 1 daily for 4 days 201 04/09/17 AZITHROMYCIN 78848218590 No Longer Active Hugo Restrepo MD Active TESSALON PERLES 100 MG CAP 1 tablet by mouth 3 times daily a s needed for cough TESSALON PERLES 100 MG CAP 623051 BENZONATATE I nactive PREDNISONE 20 MG TAB 1 po bid 3 days, then 1 po q day 3 days 201 05/03/07 PREDNISONE 20 MG TAB 113157 PREDNISONE Inactive LORTAB 7.5-500 MG/15ML ELIX 7.5 ml po q 4 hour prn cough LORTAB 7.5-500 MG/15ML ELIX HYDROCODONE-ACETAMINOPHEN Inacti ve ACETAMINOPHEN-CODEINE #3 300-30 MG TABS 1 PO Q 4-6 HR PRN PAIN 2 ACETAMINOPHEN-CODEINE #3 300-30 MG TABS 067747 ACETAMIN OPHEN-CODEINE Inactive CHERATUSSIN AC 100-10 MG/5ML SYRP take 1 tsp po q4-6 hours prn c ough CHERATUSSIN AC 100-10 MG/5ML SYRP 134455 GUAIFENESIN-CO DEINE Inactive ACETAMINOPHEN-CODEINE #3 300-30 MG TABS 1 tablet po q 4-6hrs prn pain ACETAMINOPHEN-CODEINE #3 300-30 MG TABS 162968 ACETAMIN OPHEN-CODEINE Inactive HYDROCODONE-ACETAMINOPHEN 5-325 MG TABS 1 po q 6hr PRN cough 201 05/09/16 HYDROCODONE-ACETAMINOPHEN 5-325 MG TABS 727643 HYDROCODONE-ACETAMINOPHEN Inactive AVELOX 400 MG TABS 1 tab by mouth daily A VELOX 400 MG TABS 931280 MOXIFLOXACIN HCL Inactive CHERATUSSIN AC 100-10 MG/5ML SYRP 1 tsp by mouth every 4 hours as needed for cough CHERATUSSIN AC 100-10 MG/5ML SYRP 467725 GUAIFENESIN-CODEINE Inactive TERBINAFINE HCL 250 MG TABS 1 qDay TERBINAFINE HCL 250 MG TABS 508590 TERBINAFINE HCL Inactive CHERATUSSIN AC 100-10 MG/5ML SYRP 1 tsp by mouth every 4 hours as needed for cough CHERATUSSIN AC 100-10 MG/5ML SYRP 436872 GUAIFENESIN-CODEINE Inactive ACETAMINOPHEN-CODEINE #3 300-30 MG TABS 1 PO Q 4-6 HRS PRN PAIN ACETAMINOPHEN-CODEINE #3 300-30 MG TABS 232710 ACETAMINOPHEN-CODEIN E Inactive CHERATUSSIN AC 100-10 MG/5ML SYRP 1 tsp by mouth every 4 hours as needed for cough CHERATUSSIN AC 100-10 MG/5ML SYRP 568561 GUAIFENESIN-CODEINE Inactive AUGMENTIN 875-125 MG TAB 1 tab by mouth twice daily with food 20 12/03/31 AUGMENTIN 875-125 MG TAB 920527 AMOXICILLIN-POT CLAVULA EFE Inactive CHERATUSSIN AC 100-10 MG/5ML SYRP take one tsp po Q 6hours prn c ough CHERATUSSIN AC 100-10 MG/5ML SYRP 090794 GUAIFENESIN-CO DEINE Inactive PROPRANOLOL HCL 60 MG TABS 1 PO Q D P ROPRANOLOL HCL 60 MG TABS 442694 PROPRANOLOL HCL Inactive TOPAMAX 50 MG TABS take 1 tab po BID for migraines. 12/07/10 TOPAMAX 50 MG TABS 943363 TOPIRAMATE Inactive TOPAMAX 25 MG TABS 1 qHS x 1 week, then 1 BID x 1 week, then 1 qAM and 2 qHS x 1 week, then 2 BID (migraine prevention) TOPAMAX 2 5 MG TABS 972103 TOPIRAMATE Inactive LYRICA 75 MG CAPS TAKE 1 CAPSULE BY MOUTH TWICE DAILY LYRICA 75 MG CAPS PREGABALIN Inactive SYMBICORT 160-4.5 MCG/ACT AERO 2 puffs bid with rinse after 2011 SYMBICORT 160-4.5 MCG/ACT AERO BUDESONIDE-FORMOT SÁNCHEZ FUMARATE Inactive PROMETHAZINE-CODEINE 6.25-10 MG/5ML SYRP 1 tsp by mouth ever y 8 hours prn cough PROMETHAZINE-CODEINE 6.25-10 MG/5ML SYRP 078549 PROMETHAZINE-CODEINE Inactive CYMBALTA 30 MG CPEP 1 cap by mouth daily CYMBALTA 30 MG CPEP 394387 DULOXETINE HCL Inactive PREMARIN 0.625 MG TABS TAKE 1 TAB BY MOUTH DAILY 07/25 PREMARIN 0.625 MG TABS ESTROGENS CONJUGATED Inactive CHERATUSSIN AC 100-10 MG/5ML SYRP 1 tsp by mouth every 4 hours as needed for cough CHERATUSSIN AC 100-10 MG/5ML SYRP 098395 GUAIFENESIN-CODEINE Inactive PROMETHAZINE-CODEINE 6.25-10 MG/5ML SYRP 1 tsp by mout h every 6 hours if needed for cough PROMETHAZINE-CODEINE 6.25-10 MG/5ML SYRP 892017 PROMETHAZINE-CODEINE Inactive CHERATUSSIN AC 100-10 MG/5ML SYRP 1 tsp by mouth every 4 hours as needed for cough CHERATUSSIN AC 100-10 MG/5ML SYRP 922967 GUAIFENESIN-CODEINE Inactive FLUTICASONE PROPIONATE 50 MCG/ACT SUSP 1 to 2 sprays each no stril daily FLUTICASONE PROPIONATE 50 MCG/ACT SUSP 076875 FLUTICASONE PROPIONATE Inactive PREDNISONE 20 MG ORAL TABS 3 tab PO qd x 2d, 2 tab PO qd x 2d, 1 tab PO qd x 2d, 1/2 tab PO qd x 2d PREDNISONE 20 MG ORAL TABS 913827 PREDNISONE Inactive LEVOFLOXACIN 500 MG ORAL TABS 1 tab PO daily x 10 days LEVOFLOXACIN 500 MG ORAL TABS 252526 LEVOFLOXACIN Inactive CYCLOBENZAPRINE HCL 10 MG TABS 1 tablet by mouth BID prn had cherelle n CYCLOBENZAPRINE HCL 10 MG TABS 733042 CYCLOBENZAPRINE H CL Inactive ZOCOR 40 MG TAB 1 tab by mouth daily ZOCOR 40 M G TAB 155004 SIMVASTATIN Inactive ZITHROMAX Z-REYNA 250 MG TABS 2 today, then 1 daily for 4 days 201 04/09/17 ZITHROMAX Z-REYNA 250 MG TABS 3650954 AZITHROMYCIN Inac tive CEFDINIR 300 MG CAPS [...] q days 2-5 ZITHROMAX 250 MG TAB 9413921 AZITHROMYCIN Inactive CEFDINIR 300 MG CAPS by mouth twice a day CEFDINIR 300 MG CAPS 437594 CEFDINIR Inactive PREDNISONE 20 MG TAB 2 tabs daily for 3 days, 1 t ab daily for 3 days, 1/2 tab daily for 2 days PREDNISONE 20 MG TAB 714006 PREDNISON E Inactive AVELOX 400 MG TABS 1 tab by mouth daily A VELOX 400 MG TABS 254859 MOXIFLOXACIN HCL Inactive AVELOX 400 MG TABS 1 tab by mouth daily A VELOX 400 MG TABS 398971 MOXIFLOXACIN HCL Inactive PREDNISONE 20 MG TAB Take 3 tabs daily for 3 days , 2 tabs daily for 3 days, 1 tab daily for 3 days, 1/2 tab daily for 3 days PREDNISONE 20 MG TAB 707963 PREDNISONE Inactive LEVAQUIN 500 MG TABS take one po QD LEVAQUIN 50 0 MG TABS 682311 LEVOFLOXACIN Inactive AZITHROMYCIN 250 MG TABS 2 po qd x 1 day, then 1 po qd x 4 days AZITHROMYCIN 250 MG TABS 7017305 AZITHROMYCIN Inactiv e MEDROL (REYNA) 4 MG TABS 6 tabs on day 1, 5 tabs on d ay 2, 4 tabs on day 3, 3 tabs on day 4, 2 tabs on day 5, 1 tab on day 6 MEDROL (REYNA) 4 MG TABS 901257 METHYLPREDNISOLONE Inactive CHERATUSSIN AC 100-10 MG/5ML SYRP 5ml po q6hr PRN Cough CHERATUSSIN AC 100-10 MG/5ML SYRP 763973 GUAIFENESIN-CODEINE Inacti ve TRIAMCINOLONE ACETONIDE 0.1 % CREA apply three times daily prn r beatrice TRIAMCINOLONE ACETONIDE 0.1 % CREA 3968501 TRIAMCINOLONE ACETONIDE Inactive AZITHROMYCIN 250 MG TABS 2 po qd x 1 day, then 1 po qd x 4 days AZITHROMYCIN 250 MG TABS 7524985 AZITHROMYCIN Inactiv e MEDROL (REYNA) 4 MG TABS 6 pills x 1 day, then 5 pill s x 1 day then 4 pills x 1 day, then 3 pills x 1 day, then 2 pills x 1 day, then 1 pill x 1 day, then stop MEDROL (REYNA) 4 MG TABS 917350 METHYLPREDNISOLONE Inactive AMOXICILLIN 500 MG CAP 1 tab by mouth 3 times daily x 10 days 20 13/03/08 AMOXICILLIN 500 MG CAP 233136 AMOXICILLIN Inactive AMOXICILLIN 500 MG CAP 1 tab by mouth 3 times daily x 10 days 20 14/04/28 AMOXICILLIN 500 MG CAP 971518 AMOXICILLIN Inactive ZITHROMAX 250 MG TAB 2 po today, then 1 po q days 2-5 ZITHROMAX 250 MG TAB 4739419 AZITHROMYCIN Inactive AUGMENTIN 875-125 MG TAB 1 po BID x 10 days AUGMENTIN 875- 125 MG TAB 832489 AMOXICILLIN-POT CLAVULANATE Inactive ZITHROMAX Z-REYNA 250 MG TABS 2 today, then 1 daily for 4 days 201 08/07/20 ZITHROMAX Z-REYNA 250 MG TABS 1710443 AZITHROMYCIN Inac tive ZITHROMAX 250 MG TAB 2 po today, then 1 po q days 2-5 ZITHROMAX 250 MG TAB 1300646 AZITHROMYCIN Inactive ZITHROMAX Z-REYNA 250 MG TABS 2 today, then 1 daily for 4 days 201 08/30/03 ZITHROMAX Z-REYNA 250 MG TABS 1782407 AZITHROMYCIN Inac tive CEFDINIR 300 MG CAPS 1 po BID x 10 days C EFDINIR 300 MG CAPS 154625 CEFDINIR Inactive ZITHROMAX 250 MG TAB 2 po today, then 1 po q days 2-5 ZITHROMAX 250 MG TAB 2859130 AZITHROMYCIN Inactive Vital Signs Date Name Value Unit Range Description blood pressure, diastolic - 8462-4 76 mm[Hg] [...] Measured Encounters Code Encounter Date Provider Facility CPT-07062 Level 3 Est. Patient 11:58:06 CDT Italo KHAN [facility] CPT-63881 Level 4 Est. Patient 14:36:51 CDT Carlton rich MD [facility] CPT-51398 Level 3 Est. Patient 18:16:00 INTERNAL CORROSION SPECIALIST Blaine HERNANDEZ [facility] CPT-71407 Level 3 Est. Patient 09:45:49 INTERNAL CORROSION SPECIALIST Carlton rich MD [facility] CPT-99576 Level 3 Est. Patient 13:19:20 CDT Carlton rich MD [facility]-03627 Level 3 Est. Patient 13:06:43 CDT Ridge tam DO [facility] CPT-59067 Level 3 Est. Patient 10:03:07 CDT Perez Mora MD [facility]-88037 Level 3 Est. Patient 19:50:35 INTERNAL CORROSION SPECIALIST Carlton rich MD [facility]-76125 Level 4 Est. Patient 18:05:01 INTERNAL CORROSION SPECIALIST Carlton rich MD [facility] CPT-25860 Level 3 Est. Patient 10:45:55 INTERNAL CORROSION SPECIALIST Hugo Restrepo MD [facility]-09727 Level 3 Est. Patient 14:12:49 CDT Griffin HERNANDEZ [facility] CPT-80906 Level 3 Est. Patient 17:37:24 CDT Carlton rich MD [facility]-79592 Level 3 Est. Patient 16:51:54 CDT Carlton rich MD [facility]-01273 Level 3 Est. Patient 12:18:11 CDT Hugo Restrepo MD [facility] CPT-94827 Level 3 Est. Patient 11:30:25 CDT Marcy crisostomo MD, PhD [facility]-70169 Level 3 Est. Patient 12:00:47 INTERNAL CORROSION SPECIALIST Carlton rich MD [facility]-73179 Level 3 Est. Patient 16:31:06 INTERNAL CORROSION SPECIALIST Carlton rich MD [facility]-93832 Level 3 Est. Patient 16:23:24 INTERNAL CORROSION SPECIALIST Ridge tam [facility] CPT-05862 Level 3 Est. Patient 12:34:12 CDT Carlton rich MD [facility] CPT-24398 Level 2 Est. Patient 15:43:33 CDT Robi armstrong MD [facility] CPT-93734 Level 4 Est. Patient 14:04:44 CDT Carlton rich MD [facility] CPT-65233 Level 3 Est. Patient 05:47:59 CDT Ridge tam [facility] CPT-24605 Level 3 Est. Patient 13:12:53 INTERNAL CORROSION SPECIALIST Carlton rich MD [facility] CPT-69356 Level 3 Est. Patient 14:26:53 CDT Hugo Restrepo MD [facility] Procedures Code Procedure Name Date Entry Date Standard Desc ription CPT-79021 Hip bilat min 2V w AP pelvis 13:16:20 CDT 2 CPT-43964 Pelvis only 13:07:33 CDT CPT-05342 Spec Collection and Handling Fee 11:25:12 C DT CPT-03443 Fluzone Quadrivalent Intramuscular Suspe nsion 0.5 ML 14:31:55 CDT CPT-35451 Abx/Therapy Injection 13:28:47 INTERNAL CORROSION SPECIALIST CPT-J2930 Solu Medrol 125 mg (Methyl Prednisolone Sodium Succinate) 12:00:47 INTERNAL CORROSION SPECIALIST CPT-22076 Venipuncture Draw Fee 11:33:31 CDT CPT-20979 EKG Trac and Interp 11:21:09 CDT CPT-88121 Chest 2V Frontal and Lat 11:21:09 CDT 12/15 CPT-85491 Venipuncture Draw Fee 08:02:34 CDT CPT-21363 Chest 2V Frontal and Lat 05:47:59 CDT 06/05
--- OUTSIDE RECORDS SUMMARY | 2019-10-08 08:11 | XMS REPORT | Clinical Summary ---
Author Author Caitlin, Juliana Martinez Organization [facility] Address Unknown Phone Unavailable Allergies, Adverse Reactions, Alerts Allergy Name Reaction Description Start Date Severity Status Pr ovider No Known Allergies Columbabrady Kendallida Conditions or Problems Problem Name Problem [...] a health care facility HEADACHE 784.0 Active aCrlton Hu MD Headache DEPRESSION 311 Active Carlton [...] sites Sinusitis 473.9 Active Diya De Guzman [employer] Unspecified sinusitis (chronic) Bronchitis-Acute 466.0 Active Carlton Hu MD Acute bronchitis URI - acute 465.9 Active Elise Whitmore [employer] Acute upper respiratory infections of unspecified site [...] Generic Name NDC Status Provider Patient Instruction SINGULAIR 10 MG TABS 1 po qday for allergies 2 MONTELUKAST SODIUM 82660164502 Active Carlton Hu MD Active LEVAQUIN 500 MG TAB 1 tablet by mouth daily LEV OFLOXACIN 81453934491 No Longer Active Carlton Hu MD Active FLUTICASONE PROPIONATE 50 MCG/ACT SUSP 2 sprays each n ostril daily for 2 weeks, then 1 spray each nostril daily. FLUTICASONE PRO PIONATE 09734888645 Active Elise Whitmore APRN Active ZITHROMAX 250 MG TAB 2 po today, then 1 po q days 2-5 AZITHROMYCIN 66815541192 No Longer Active Elise Whitmore APRN Acti ve XANAX 0.5 MG TABS one tablet by mouth daily prn anxiety ALPRAZOLAM 90160504611 Active Elise Whitmore APRN Active CYMBALTA 30 MG CPEP 1 cap by mouth daily for depression DULOXETINE HCL 99795918278 Active Carlton Hu MD Active CEFDINIR 300 MG CAPS 1 po BID x 10 days CEFDINI R 43031825941 No Longer Active Carlton Hu MD Active ZOCOR 40 MG TAB 1 tab by mouth daily SIMVASTATI N 83380233229 No Longer Active Carlton Hu MD Active CYCLOBENZAPRINE HCL 10 MG TABS 1 tablet by mouth BID prn had cherelle n CYCLOBENZAPRINE HCL 01407509897 No Longer Active Carlton Hu MD Active LEVOFLOXACIN 500 MG ORAL TABS 1 tab PO daily x 10 days LEVOFLOXACIN 34347385868 No Longer Active Carlton Hu MD Acti ve PREDNISONE 20 MG ORAL TABS 3 tab PO qd x 2d, 2 tab PO qd x 2d, 1 tab PO qd x 2d, 1/2 tab PO qd x 2d PREDNISONE 71536373989 No Longer Active Carlton Hu MD Active TUSSIONEX PENNKINETIC ER 10-8 MG/5ML ORAL LQCR 5 mL PO q 12 hrs PRN cough HYDROCOD POLST-CHLORPHEN POLST 70302983450 Active Carlton Hu MD Active FLUTICASONE PROPIONATE 50 MCG/ACT SUSP 1 to 2 sprays each no stril daily FLUTICASONE PROPIONATE 10666337725 No Longer Active T jaz HERNANDEZ Active CHERATUSSIN AC 100-10 MG/5ML SYRP 1 tsp by mouth every 4 hours as needed for cough GUAIFENESIN-CODEINE 51302354335 No Longer Activ e Blaine HERNANDEZ Active PROMETHAZINE-CODEINE 6.25-10 MG/5ML SYRP 1 tsp by mout h every 6 hours if needed for cough PROMETHAZINE-CODEINE 05895177771 No Long er Active Blaine HERNANDEZ Active CHERATUSSIN AC 100-10 MG/5ML SYRP 1 tsp by mouth every 4 hours as needed for cough GUAIFENESIN-CODEINE 65958952549 No Longer Activ e Blaine HERNANDEZ Active ZITHROMAX Z-REYNA 250 MG TABS 2 today, then 1 daily for 4 days 201 08/30/03 AZITHROMYCIN 97854612566 No Longer Active Columba Raida Act nael ZITHROMAX 250 MG TAB 2 po today, then 1 po q days 2-5 AZITHROMYCIN 15289118015 No Longer Active Carlton Hu MD Acti ve ZITHROMAX Z-REYNA 250 MG TABS 2 today, then 1 daily for 4 days 201 08/07/20 AZITHROMYCIN 31100846987 No Longer Active Columba Raida Act nael AUGMENTIN 875-125 MG TAB 1 po BID x 10 days AMOXICILLIN- POT CLAVULANATE 80026814157 No Longer Active Diya De Guzman [employer] Active ZITHROMAX 250 MG TAB 2 po today, then 1 po q days 2-5 AZITHROMYCIN 10071861495 No Longer Active Carlton hall TRAMADOL HCL 50 MG TABS 1 po tid with ES Tylenol TRAMADOL HCL 70086542900 Active Carlton Hu MD Active PREMARIN 0.625 MG TABS TAKE 1 TAB BY MOUTH DAILY 07/25 ESTROGENS CONJUGATED 66741527059 No Longer Active Ridge Bess DO Active CYMBALTA 30 MG CPEP 1 cap by mouth daily DULOXE SNEHA HCL 03292768048 No Longer Active Ridge Bess DO Active AMOXICILLIN 500 MG CAP 1 tab by mouth 3 times daily x 10 days 20 14/04/28 AMOXICILLIN 96447022387 No Longer Active Carlton Hu MD Active AMOXICILLIN 500 MG CAP 1 tab by mouth 3 times daily x 10 days 20 13/03/08 AMOXICILLIN 57371270352 No Longer Active Carlton Hu MD Active PROMETHAZINE-CODEINE 6.25-10 MG/5ML SYRP 1 tsp by mouth ever y 8 hours prn cough PROMETHAZINE-CODEINE 44275778447 No Longer Active Robert Hu MD Active MEDROL (REYNA) 4 MG TABS 6 pills x 1 day, then 5 pill s x 1 day then 4 pills x 1 day, then 3 pills x 1 day, then 2 pills x 1 day, then 1 pill x 1 day, then stop METHYLPREDNISOLONE 33265039536 No Longer Active Parris Mora MD Active AZITHROMYCIN 250 MG TABS 2 po qd x 1 day, then 1 po qd x 4 days AZITHROMYCIN 20110869433 No Longer Active Perez Mora MD Active SYMBICORT 160-4.5 MCG/ACT AERO 2 puffs bid with rinse after 2011 BUDESONIDE-FORMOTEROL FUMARATE 94416318054 No Longer Active Perez Mora MD Active LYRICA 75 MG CAPS TAKE 1 CAPSULE BY MOUTH TWICE DAILY 2013 PREGABALIN 54519180261 No Longer Active Carlton Hu MD Active LYRICA 100 MG CAPS Take 1 tab po BID for fibromyalgia PREGABALIN 84719432407 Active Carlton Hu MD Active TOPAMAX 25 MG TABS 1 qHS x 1 week, then 1 BID x 1 week, then 1 qAM and 2 qHS x 1 week, then 2 BID (migraine prevention) TOPIRAMAT E 45230162465 No Longer Active Jerica Osei RMA Active TOPAMAX 50 MG TABS take 1 tab po BID for migraines. 12/07/10 TOPIRAMATE 67809721751 No Longer Active Jerica Gomerissaer RMA Ac tive TOPAMAX 100 MG TABS Take 1 tablet po bid TOPIRAMATE 4999 0106697 Active Carlton Hu MD Active TRIAMCINOLONE ACETONIDE 0.1 % CREA apply three times daily prn r beatrice TRIAMCINOLONE ACETONIDE 10103281535 No Longer Active Carlton Hu MD Active PAXIL 40 MG TAB take 1 tab po qday for depression PAROXETINE HCL 20912004730 Active Elise Whitmore [employer] Active CHERATUSSIN AC 100-10 MG/5ML SYRP 5ml po q6hr PRN Cough GUAIFENESIN-CODEINE 65662913308 No Longer Active Carlton Hu MD Active MEDROL (REYNA) 4 MG TABS 6 tabs on day 1, 5 tabs on d ay 2, 4 tabs on day 3, 3 tabs on day 4, 2 tabs on day 5, 1 tab on day 6 METHYLPREDNISOLONE 87102001483 No Longer Active Perez Mora MD Active AZITHROMYCIN 250 MG TABS 2 po qd x 1 day, then 1 po qd x 4 days AZITHROMYCIN 54005794874 No Longer Active Perez Mora MD Active PROPRANOLOL HCL 60 MG TABS 1 PO Q D PROPRANOL OL HCL 49553059409 No Longer Active Perez Mora MD Active CHERATUSSIN AC 100-10 MG/5ML SYRP take one tsp po Q 6hours prn c ough GUAIFENESIN-CODEINE 26184548283 No Longer Active Perez Means Active AUGMENTIN 875-125 MG TAB 1 tab by mouth twice daily with food 20 12/03/31 AMOXICILLIN-POT CLAVULANATE 11664131086 No Longer Active Chanel Mora MD Active CHERATUSSIN AC 100-10 MG/5ML SYRP 1 tsp by mouth every 4 hours as needed for cough GUAIFENESIN-CODEINE 37525525896 No Longer Activ e Hugo Restrepo MD Active ACETAMINOPHEN-CODEINE #3 300-30 MG TABS 1 PO Q 4-6 HRS PRN PAIN ACETAMINOPHEN-CODEINE 58130049255 No Longer Active Hugo Restrepo MD Active LEVAQUIN 500 MG TABS take one po QD LEVOFLOXACI N 44397099261 No Longer Active Griffin HERNANDEZ Active PREDNISONE 20 MG TAB Take 3 tabs daily for 3 days , 2 tabs daily for 3 days, 1 tab daily for 3 days, 1/2 tab daily for 3 days P REDNISONE 28368639945 No Longer Active Carlton Hu MD Active AVELOX 400 MG TABS 1 tab by mouth daily MOXIFLO XACIN HCL 05368992456 No Longer Active Carlton Hu MD Active CHERATUSSIN AC 100-10 MG/5ML SYRP 1 tsp by mouth every 4 hours as needed for cough GUAIFENESIN-CODEINE 82000142429 No Longer Activ e Hugo Restrepo MD Active AVELOX 400 MG TABS 1 tab by mouth daily MOXIFLO XACIN HCL 54026865080 No Longer Active Marcy De La Rosa MD PhD Active TERBINAFINE HCL 250 MG TABS 1 qDay TERBINAF INE HCL 33387063080 No Longer Active Marcy De La Rosa MD PhD Active CHERATUSSIN AC 100-10 MG/5ML SYRP 1 tsp by mouth every 4 hours as needed for cough GUAIFENESIN-CODEINE 48538888459 No Longer Activ e Marcy De La Rosa MD PhD Active AVELOX 400 MG TABS 1 tab by mouth daily MOXIFLO XACIN HCL 92806247356 No Longer Active Marcy De La Rosa MD PhD Active HYDROCODONE-ACETAMINOPHEN 5-325 MG TABS 1 po q 6hr PRN cough 201 05/09/16 HYDROCODONE-ACETAMINOPHEN 28520740708 No Longer Active Marcy De La Rosa MD PhD Active PREDNISONE 20 MG TAB 2 tabs daily for 3 days, 1 t ab daily for 3 days, 1/2 tab daily for 2 days PREDNISONE 03692437063 No Longer Active Carlton Hu MD Active CEFDINIR 300 MG CAPS by mouth twice a day CEFDI ODILIA 62598572099 No Longer Active Carlton Hu MD Active HYDROCHLOROTHIAZIDE 25 MG TABS 1 TAB PO DAILY H YDROCHLOROTHIAZIDE 94855953100 Active Carlton Hu MD Active ACETAMINOPHEN-CODEINE #3 300-30 MG TABS 1 tablet po q 4-6hrs prn pain ACETAMINOPHEN-CODEINE 16570793670 No Longer Active Ridge Bess DO Active ZITHROMAX 250 MG TAB 2 po today, then 1 po q days 2-5 AZITHROMYCIN 95527725058 No Longer Active Carlton Hu MD Acti ve CHERATUSSIN AC 100-10 MG/5ML SYRP take 1 tsp po q4-6 hours prn c ough GUAIFENESIN-CODEINE 78410950665 No Longer Active Carlton Hu MD Active ACETAMINOPHEN-CODEINE #3 300-30 MG TABS 1 PO Q 4-6 HR PRN PAIN 2 ACETAMINOPHEN-CODEINE 46321595226 No Longer Active Carlton rich MD Active LORTAB 7.5-500 MG/15ML ELIX 7.5 ml po q 4 hour prn cough HYDROCODONE-ACETAMINOPHEN 86522688474 No Longer Active Carlton Hu MD Active PREDNISONE 20 MG TAB 1 po bid 3 days, then 1 po q day 3 days 201 05/03/07 PREDNISONE 66850204357 No Longer Active Carlton Hu MD Active ELMIRON 100 MG CAPS 2 tablets in the am and 1 tablet at hs PENTOSAN POLYSULFATE SODIUM 25152315130 Active Carlton Hu MD Ac tive CEFDINIR 300 MG CAPS by mouth twice a day CEFDI ODILIA 26232263513 No Longer Active Carlton Hu MD Active CEFDINIR 300 MG CAPS by mouth twice a day CEFDI ODILIA 36115769942 No Longer Active Carlton Hu MD Active CEFDINIR 300 MG CAPS by mouth twice a day CEFDI ODILIA 19094711946 No Longer Active Carlton Hu MD Active TESSALON PERLES 100 MG CAP 1 tablet by mouth 3 times daily a s needed for cough BENZONATATE 88715957735 No Longer Active Carlton bustamante MD Active CEFDINIR 300 MG CAPS by mouth twice a day CEFDI ODILIA 29458329616 No Longer Active Carlton Hu MD Active ZITHROMAX Z-REYNA 250 MG TABS 2 today, then 1 daily for 4 days 201 04/09/17 AZITHROMYCIN 77555161900 No Longer Active Hugo Restrepo MD Active TESSALON PERLES 100 MG CAP 1 tablet by mouth 3 times daily a s needed for cough TESSALON PERLES 100 MG CAP 944895 BENZONATATE I nactive PREDNISONE 20 MG TAB 1 po bid 3 days, then 1 po q day 3 days 201 05/03/07 PREDNISONE 20 MG TAB 618426 PREDNISONE Inactive LORTAB 7.5-500 MG/15ML ELIX 7.5 ml po q 4 hour prn cough LORTAB 7.5-500 MG/15ML ELIX HYDROCODONE-ACETAMINOPHEN Inacti ve ACETAMINOPHEN-CODEINE #3 300-30 MG TABS 1 PO Q 4-6 HR PRN PAIN 2 ACETAMINOPHEN-CODEINE #3 300-30 MG TABS 323313 ACETAMIN OPHEN-CODEINE Inactive CHERATUSSIN AC 100-10 MG/5ML SYRP take 1 tsp po q4-6 hours prn c ough CHERATUSSIN AC 100-10 MG/5ML SYRP 106027 GUAIFENESIN-CO DEINE Inactive ACETAMINOPHEN-CODEINE #3 300-30 MG TABS 1 tablet po q 4-6hrs prn pain ACETAMINOPHEN-CODEINE #3 300-30 MG TABS 133736 ACETAMIN OPHEN-CODEINE Inactive HYDROCODONE-ACETAMINOPHEN 5-325 MG TABS 1 po q 6hr PRN cough 201 05/09/16 HYDROCODONE-ACETAMINOPHEN 5-325 MG TABS 089723 HYDROCODONE-ACETAMINOPHEN Inactive AVELOX 400 MG TABS 1 tab by mouth daily A VELOX 400 MG TABS 151655 MOXIFLOXACIN HCL Inactive CHERATUSSIN AC 100-10 MG/5ML SYRP 1 tsp by mouth every 4 hours as needed for cough CHERATUSSIN AC 100-10 MG/5ML SYRP 319042 GUAIFENESIN-CODEINE Inactive TERBINAFINE HCL 250 MG TABS 1 qDay TERBINAFINE HCL 250 MG TABS 278546 TERBINAFINE HCL Inactive CHERATUSSIN AC 100-10 MG/5ML SYRP 1 tsp by mouth every 4 hours as needed for cough CHERATUSSIN AC 100-10 MG/5ML SYRP 150308 GUAIFENESIN-CODEINE Inactive ACETAMINOPHEN-CODEINE #3 300-30 MG TABS 1 PO Q 4-6 HRS PRN PAIN ACETAMINOPHEN-CODEINE #3 300-30 MG TABS 550495 ACETAMINOPHEN-CODEIN E Inactive CHERATUSSIN AC 100-10 MG/5ML SYRP 1 tsp by mouth every 4 hours as needed for cough CHERATUSSIN AC 100-10 MG/5ML SYRP 156465 GUAIFENESIN-CODEINE Inactive AUGMENTIN 875-125 MG TAB 1 tab by mouth twice daily with food 20 12/03/31 AUGMENTIN 875-125 MG TAB 522737 AMOXICILLIN-POT CLAVULA EFE Inactive CHERATUSSIN AC 100-10 MG/5ML SYRP take one tsp po Q 6hours prn c ough CHERATUSSIN AC 100-10 MG/5ML SYRP 875290 GUAIFENESIN-CO DEINE Inactive PROPRANOLOL HCL 60 MG TABS 1 PO Q D P ROPRANOLOL HCL 60 MG TABS 783116 PROPRANOLOL HCL Inactive TOPAMAX 50 MG TABS take 1 tab po BID for migraines. 12/07/10 TOPAMAX 50 MG TABS 970895 TOPIRAMATE Inactive TOPAMAX 25 MG TABS 1 qHS x 1 week, then 1 BID x 1 week, then 1 qAM and 2 qHS x 1 week, then 2 BID (migraine prevention) TOPAMAX 2 5 MG TABS 881415 TOPIRAMATE Inactive LYRICA 75 MG CAPS TAKE 1 CAPSULE BY MOUTH TWICE DAILY LYRICA 75 MG CAPS PREGABALIN Inactive SYMBICORT 160-4.5 MCG/ACT AERO 2 puffs bid with rinse after 2011 SYMBICORT 160-4.5 MCG/ACT AERO BUDESONIDE-FORMOT SÁNCHEZ FUMARATE Inactive PROMETHAZINE-CODEINE 6.25-10 MG/5ML SYRP 1 tsp by mouth ever y 8 hours prn cough PROMETHAZINE-CODEINE 6.25-10 MG/5ML SYRP 017495 PROMETHAZINE-CODEINE Inactive CYMBALTA 30 MG CPEP 1 cap by mouth daily CYMBALTA 30 MG CPEP 900623 DULOXETINE HCL Inactive PREMARIN 0.625 MG TABS TAKE 1 TAB BY MOUTH DAILY 07/25 PREMARIN 0.625 MG TABS ESTROGENS CONJUGATED Inactive CHERATUSSIN AC 100-10 MG/5ML SYRP 1 tsp by mouth every 4 hours as needed for cough CHERATUSSIN AC 100-10 MG/5ML SYRP 893248 GUAIFENESIN-CODEINE Inactive PROMETHAZINE-CODEINE 6.25-10 MG/5ML SYRP 1 tsp by mout h every 6 hours if needed for cough PROMETHAZINE-CODEINE 6.25-10 MG/5ML SYRP 145132 PROMETHAZINE-CODEINE Inactive CHERATUSSIN AC 100-10 MG/5ML SYRP 1 tsp by mouth every 4 hours as needed for cough CHERATUSSIN AC 100-10 MG/5ML SYRP 088037 GUAIFENESIN-CODEINE Inactive FLUTICASONE PROPIONATE 50 MCG/ACT SUSP 1 to 2 sprays each no stril daily FLUTICASONE PROPIONATE 50 MCG/ACT SUSP 8163196 FLUTICASONE PROPIONATE Inactive PREDNISONE 20 MG ORAL TABS 3 tab PO qd x 2d, 2 tab PO qd x 2d, 1 tab PO qd x 2d, 1/2 tab PO qd x 2d PREDNISONE 20 MG ORAL TABS 449961 PREDNISONE Inactive LEVOFLOXACIN 500 MG ORAL TABS 1 tab PO daily x 10 days LEVOFLOXACIN 500 MG ORAL TABS 083208 LEVOFLOXACIN Inactive CYCLOBENZAPRINE HCL 10 MG TABS 1 tablet by mouth BID prn had cherelle n CYCLOBENZAPRINE HCL 10 MG TABS 541623 CYCLOBENZAPRINE H CL Inactive ZOCOR 40 MG TAB 1 tab by mouth daily ZOCOR 40 M G TAB 274714 SIMVASTATIN Inactive ZITHROMAX Z-REYNA 250 MG TABS 2 today, then 1 daily for 4 days 201 04/09/17 ZITHROMAX Z-REYNA 250 MG TABS 2393421 AZITHROMYCIN Inac tive CEFDINIR 300 MG CAPS [...] q days 2-5 ZITHROMAX 250 MG TAB 8307702 AZITHROMYCIN Inactive CEFDINIR 300 MG CAPS by mouth twice a day CEFDINIR 300 MG CAPS 20020704 CEFDINIR Inactive PREDNISONE 20 MG TAB 2 tabs daily for 3 days, 1 t ab daily for 3 days, 1/2 tab daily for 2 days PREDNISONE 20 MG TAB 989617 PREDNISON E Inactive AVELOX 400 MG TABS 1 tab by mouth daily A VELOX 400 MG TABS 842173 MOXIFLOXACIN HCL Inactive AVELOX 400 MG TABS 1 tab by mouth daily A VELOX 400 MG TABS 475391 MOXIFLOXACIN HCL Inactive PREDNISONE 20 MG TAB Take 3 tabs daily for 3 days , 2 tabs daily for 3 days, 1 tab daily for 3 days, 1/2 tab daily for 3 days PREDNISONE 20 MG TAB 279169 PREDNISONE Inactive LEVAQUIN 500 MG TABS take one po QD LEVAQUIN 50 0 MG TABS 013656 LEVOFLOXACIN Inactive AZITHROMYCIN 250 MG TABS 2 po qd x 1 day, then 1 po qd x 4 days AZITHROMYCIN 250 MG TABS 6913383 AZITHROMYCIN Inactiv e MEDROL (REYNA) 4 MG TABS 6 tabs on day 1, 5 tabs on d ay 2, 4 tabs on day 3, 3 tabs on day 4, 2 tabs on day 5, 1 tab on day 6 MEDROL (REYNA) 4 MG TABS 445861 METHYLPREDNISOLONE Inactive CHERATUSSIN AC 100-10 MG/5ML SYRP 5ml po q6hr PRN Cough CHERATUSSIN AC 100-10 MG/5ML SYRP 074960 GUAIFENESIN-CODEINE Inacti ve TRIAMCINOLONE ACETONIDE 0.1 % CREA apply three times daily prn r beatrice TRIAMCINOLONE ACETONIDE 0.1 % CREA 7416195 TRIAMCINOLONE ACETONIDE Inactive AZITHROMYCIN 250 MG TABS 2 po qd x 1 day, then 1 po qd x 4 days AZITHROMYCIN 250 MG TABS 2941669 AZITHROMYCIN Inactiv e MEDROL (REYNA) 4 MG TABS 6 pills x 1 day, then 5 pill s x 1 day then 4 pills x 1 day, then 3 pills x 1 day, then 2 pills x 1 day, then 1 pill x 1 day, then stop MEDROL (REYNA) 4 MG TABS 805345 METHYLPREDNISOLONE Inactive AMOXICILLIN 500 MG CAP 1 tab by mouth 3 times daily x 10 days 20 13/03/08 AMOXICILLIN 500 MG CAP 346097 AMOXICILLIN Inactive AMOXICILLIN 500 MG CAP 1 tab by mouth 3 times daily x 10 days 20 14/04/28 AMOXICILLIN 500 MG CAP 256942 AMOXICILLIN Inactive ZITHROMAX 250 MG TAB 2 po today, then 1 po q days 2-5 ZITHROMAX 250 MG TAB 8008945 AZITHROMYCIN Inactive AUGMENTIN 875-125 MG TAB 1 po BID x 10 days AUGMENTIN 875- 125 MG TAB 451654 AMOXICILLIN-POT CLAVULANATE Inactive ZITHROMAX Z-REYNA 250 MG TABS 2 today, then 1 daily for 4 days 201 08/07/20 ZITHROMAX Z-REYNA 250 MG TABS 1598289 AZITHROMYCIN Inac tive ZITHROMAX 250 MG TAB 2 po today, then 1 po q days 2-5 ZITHROMAX 250 MG TAB 0666898 AZITHROMYCIN Inactive ZITHROMAX Z-REYNA 250 MG TABS 2 today, then 1 daily for 4 days 201 08/30/03 ZITHROMAX Z-REYNA 250 MG TABS 0110440 AZITHROMYCIN Inac tive CEFDINIR 300 MG CAPS 1 po BID x 10 days C EFDINIR 300 MG CAPS 093384 CEFDINIR Inactive ZITHROMAX 250 MG TAB 2 po today, then 1 po q days 2-5 ZITHROMAX 250 MG TAB 4351031 AZITHROMYCIN Inactive LEVAQUIN 500 MG TAB 1 tablet by mouth daily LEVAQUIN 500 MG TAB 994914 LEVOFLOXACIN Inactive Vital Signs Date Name Value [...] Measured Encounters Code Encounter Date Provider Facility CPT-67593 Level 3 Est. Patient 10:11:46 CDT Carlton rich MD [facility] CPT-05650 Level 3 Est. Patient 17:29:43 CDT Italo [facility] CPT-17583 Level 3 Est. Patient 11:58:06 CDT Italo [facility] CPT-91999 Level 4 Est. Patient 14:36:51 CDT Carlton rich MD [facility] CPT-75144 Level 3 Est. Patient 18:16:00 RN RECRUITMENT Blaine Freeman [facility] CPT-00096 Level 3 Est. Patient 09:45:49 RN RECRUITMENT Carlton rich MD [facility] CPT-42133 Level 3 Est. Patient 13:19:20 CDT Carlton rich MD [facility] CPT-36911 Level 3 Est. Patient 13:06:43 CDT Ridge tam DO [facility] CPT-31690 Level 3 Est. Patient 10:03:07 CDT Perez Mora MD [facility]-44691 Level 3 Est. Patient 19:50:35 RN RECRUITMENT Carlton rich MD [facility] CPT-17689 Level 4 Est. Patient 18:05:01 RN RECRUITMENT Carlton rich MD [facility] CPT-09830 Level 3 Est. Patient 10:45:55 RN RECRUITMENT Hugo Restrepo MD [facility]-23073 Level 3 Est. Patient 14:12:49 CDT Griffin lincoln [facility] CPT-59525 Level 3 Est. Patient 17:37:24 CDT Carlton irch MD [facility]-20149 Level 3 Est. Patient 16:51:54 CDT Carlton rich MD [facility]-21039 Level 3 Est. Patient 12:18:11 CDT Hugo Restrepo MD [facility]-04843 Level 3 Est. Patient 11:30:25 CDT Marcy crisostomo MD PhD [facility]-14660 Level 3 Est. Patient 12:00:47 RN RECRUITMENT Carlton rich MD [facility] CPT-26277 Level 3 Est. Patient 16:31:06 RN RECRUITMENT Carlton rich MD [facility] CPT-96608 Level 3 Est. Patient 16:23:24 RN RECRUITMENT Ridge tam [facility] CPT-49814 Level 3 Est. Patient 12:34:12 CDT Carlton rich MD [facility] CPT-07853 Level 2 Est. Patient 15:43:33 CDT Robi armstrong MD [facility] CPT-68743 Level 4 Est. Patient 14:04:44 CDT Carlton rich MD [facility] CPT-48804 Level 3 Est. Patient 05:47:59 CDT Ridge tam [facility] CPT-90338 Level 3 Est. Patient 13:12:53 RN RECRUITMENT Carlton rich MD [facility] CPT-54359 Level 3 Est. Patient 14:26:53 CDT Hugo Restrepo MD [facility] Procedures Code Procedure Name Date Entry Date Standard Desc ription CPT-J0696 Rocephin 1gm Inj Solr 14:32:13 CDT CPT-J1020 Depo Medrol 60 mg (Methyl Prednisolone A cetate) 14:32:13 CDT CPT-J1100 Decadron 6mg (Dexamethasone) 14:32:13 CDT 2 CPT-22575 Hip bilat min 2V w AP pelvis 13:16:20 CDT 2 CPT-95303 Pelvis only 13:07:33 CDT CPT-34764 Spec Collection and Handling Fee 11:25:12 C DT CPT-88283 Fluzone Quadrivalent Intramuscular Suspe nsion 0.5 ML 14:31:55 CDT CPT-19413 Abx/Therapy Injection 13:28:47 RN RECRUITMENT CPT-J2930 Solu Medrol 125 mg (Methyl Prednisolone Sodium Succinate) 12:00:47 RN RECRUITMENT CPT-32949 Venipuncture Draw Fee 11:33:31 CDT CPT-42079 EKG Trac and Interp 11:21:09 CDT CPT-78709 Chest 2V Frontal and Lat 11:21:09 CDT 12/15 CPT-88210 Venipuncture Draw Fee 08:02:34 CDT CPT-16005 Chest 2V Frontal and Lat 05:47:59 CDT 06/05
--- OUTSIDE RECORDS SUMMARY | 2019-10-08 08:11 | XMS REPORT | Clinical Summary ---
Author Author Caitlin, Juliana Martinez Organization [facility] Address Unknown Phone Unavailable Allergies, Adverse [...] po qd x 5 days P REDNISONE [id number] No Longer Active Perez Mora MD Active PROAIR HFA 108 (90 BASE) MCG/ACT INHALATION AEROSOL SO LUTION 2 puffs four times a day as needed ALBUTEROL SULFATE 87928864280 No Long er Active Becky FUENTES Active ASPIRIN 81 MG ORAL TABLET 1 po qd ASPIRIN 71760798397 Active Carlton Hu MD Active PREDNISONE 20 MG ORAL TABLET 1 tab twice daily for 3 d ay, then one daily for three days PREDNISONE 76020220551 No Longer Active Carlton Hu MD Active AUGMENTIN 875-125 MG ORAL TABLET 1 po BID x 10 days 20 16/03/22 AMOXICILLIN-POT CLAVULANATE 39420597623 No Longer Active Elise Garcia APRN Active TERBINAFINE HCL 250 MG ORAL TABLET 1 qDay for nail fungus 7 TERBINAFINE HCL 53416373125 No Longer Active Carlton Hu MD A ctive TUSSIONEX PENNKINETIC ER 10-8 MG/5ML ORAL SUSPENSION E XTENDED RELEASE 5ml po q12hr PRN Cough HYDROCOD POLST-CHLORPHEN POLST 76821074587 Active Perez Mora MD Active AMOXICILLIN 500 MG ORAL CAPSULE 1 cap by mouth three times a day AMOXICILLIN 85208288006 No Longer Active Carlton Hu MD Active ELMIRON 100 MG ORAL CAPSULE 2 tablets in the am and 1 tablet at hs PENTOSAN POLYSULFATE SODIUM 88220015424 No Longer Active Robert Hu MD Active MUCINEX D 60-600 MG ORAL TABLET EXTENDED RELEASE 12 HOUR 1 t ab po q am PSEUDOEPHEDRINE-GUAIFENESIN 68719255994 No Longer Act nael Carlton Hu MD Active MUCINEX DM MAXIMUM STRENGTH 60-1200 MG ORAL TABLET EXT ENDED RELEASE 12 HOUR 1 tab po q am DEXTROMETHORPHAN-GUAIFENESIN 87175234895 No Longer Active Carlton Hu MD Active TUSSIONEX PENNKINETIC ER 10-8 MG/5ML ORAL SUSPENSION E XTENDED RELEASE 5ml po q12hr PRN Cough HYDROCOD POLST-CHLORPHEN POLST 5 4087114570 No Longer Active Carlton Hu MD Active POTASSIUM CHLORIDE ER 20 MEQ ORAL TABLET EXTENDED RELE ASE Take 1 by mouth 4 times daily for 7 days POTASSIUM CHLORIDE 89903268476 No Longer Active Carlton Hu MD Active ZITHROMAX 250 MG ORAL TABLET 2 po today, then 1 po q days 2-5 20 14/09/04 AZITHROMYCIN 51215778042 No Longer Active Elise Garcia APRN Active TUSSIONEX PENNKINETIC ER 10-8 MG/5ML ORAL SUSPENSION E XTENDED RELEASE 5 ml twice a day as needed for cough HYDROCOD POLST-CHLORPH EN POLST 60345890759 No Longer Active Elise Garcia APRN Active MONTELUKAST SODIUM 10 MG ORAL TABLET 1 po daily for Allergy MONTELUKAST SODIUM 21637722523 Active Carlton Hu MD Ac tive TUSSIONEX PENNKINETIC ER 10-8 MG/5ML ORAL SUSPENSION E XTENDED RELEASE 5ml po q12hr PRN Cough HYDROCOD POLST-CHLORPHEN POLST 5 5661363448 No Longer Active Hugo Restrepo MD Active GABAPENTIN 100 MG ORAL CAPSULE 1 po BID for fibromyalgia GABAPENTIN 72077367858 Active Carlton Hu MD Active LYRICA 100 MG ORAL CAPSULE Take 1 tab po BID for fibromyalgia 20 11/08/21 PREGABALIN 80429821500 No Longer Active Elise Garcia APRN A ctive PREDNISONE 20 MG ORAL TABLET 2 tabs daily for 3 days, 1 tab daily for 3 days, 1/2 tab daily for 2 days PREDNISONE 43668985516 No Longer Active Diya De Guzman APRN Active TUSSIONEX PENNKINETIC ER 10-8 MG/5ML ORAL SUSPENSION E XTENDED RELEASE 5 mL PO q 12 hrs PRN cough HYDROCOD POLST-CHLORPHEN POLST 834502 82875 No Longer Active Jillina Gege RICEN Active FLUTICASONE PROPIONATE 50 MCG/ACT NASAL SUSPENSION 2 s prays each nostril daily until bottle is empty FLUTICASONE PROPIONATE 607820121 99 No Longer Active Diya De Guzman APRN Active ASMANEX 60 METERED DOSES 220 MCG/INH INHALATION AEROSO L POWDER BREATH ACTIVATED 1 puff bid with rinse after MOMETASONE FUROATE 7043239 4102 No Longer Active Diya De Guzman APRN Active ZITHROMAX Z-REYNA 250 MG ORAL TABLET 2 today, then 1 daily for 4 d ays AZITHROMYCIN 29474648171 No Longer Active Elise Garcia APRN Active TUSSIONEX PENNKINETIC ER 10-8 MG/5ML ORAL SUSPENSION E XTENDED RELEASE 5ml po q12hr PRN Cough HYDROCOD POLST-CHLORPHEN POLST 5 3906447162 No Longer Active Elise Garcia APRN Active PREDNISONE 20 MG ORAL TABLET 2 tabs daily for 3 days, 1 tab daily for 3 days, 1/2 tab daily for 2 days PREDNISONE 72752176864 No Longer Active Diya De Guzman APRN Active AMOXICILLIN 500 MG ORAL CAPSULE 2 po BID x 10 days 201 09/29/08 AMOXICILLIN 85507400674 No Longer Active Diya De Guzman APRN Act nael SINGULAIR 10 MG ORAL TABLET 1 po qday for allergies 20 14/01/12 MONTELUKAST SODIUM 41280018423 No Longer Active Carlton Hu MD Active LEVAQUIN 500 MG ORAL TABLET 1 tablet by mouth daily 20 13/09/24 LEVOFLOXACIN 80250215337 No Longer Active Carlton Hu MD Acti ve FLUTICASONE PROPIONATE 50 MCG/ACT NASAL SUSPENSION 2 s prays each nostril daily for 2 weeks, then 1 spray each nostril daily. FLUTICASONE PROPIONATE 66270211387 Active Elise Garcia APRN Active ZITHROMAX 250 MG ORAL TABLET 2 po today, then 1 po q days 2-5 20 13/08/10 AZITHROMYCIN 26206617585 No Longer Active Elise Garcia APRN Active XANAX 0.5 MG ORAL TABLET one tablet by mouth daily prn anxiety 2015 ALPRAZOLAM 43388598626 Active Carlton Hu MD Active CYMBALTA 30 MG ORAL CAPSULE DELAYED RELEASE PARTICLES 1 cap by mouth daily for depression DULOXETINE HCL 79348327263 Active Carlton beltrán MD Active CEFDINIR 300 MG ORAL CAPSULE 1 po BID x 10 days CEFDINIR 59670299853 No Longer Active Carlton Hu MD Active ZOCOR 40 MG ORAL TABLET 1 tab by mouth daily SI MVASTATIN 33528201571 No Longer Active Carlton Hu MD Active CYCLOBENZAPRINE HCL 10 MG ORAL TABLET 1 tablet by mouth BID prn had pain CYCLOBENZAPRINE HCL 02809728469 No Longer Active Jayden Hu MD Active LEVOFLOXACIN 500 MG ORAL TABLET 1 tab PO daily x 10 days LEVOFLOXACIN 94402274220 No Longer Active Carlton Hu MD Acti ve PREDNISONE 20 MG ORAL TABLET 3 tab PO qd x 2d, 2 tab P O qd x 2d, 1 tab PO qd x 2d, 1/2 tab PO qd x 2d PREDNISONE 23039749706 No Lo nger Active Carlton Hu MD Active FLUTICASONE PROPIONATE 50 MCG/ACT NASAL SUSPENSION 1 t o 2 sprays each nostril daily FLUTICASONE PROPIONATE 91083203745 No Longer Ac tive Blaine HERNANDEZ Active CHERATUSSIN AC 100-10 MG/5ML ORAL SYRUP 1 tsp by mouth every 4 hours as needed for cough GUAIFENESIN-CODEINE 87695283864 No Longe r Active Blaine HERNANDEZ Active PROMETHAZINE-CODEINE 6.25-10 MG/5ML ORAL SYRUP 1 tsp b y mouth every 6 hours if needed for cough PROMETHAZINE-CODEINE 80429926035 No Longer Active Blaine HERNANDEZ Active CHERATUSSIN AC 100-10 MG/5ML ORAL SYRUP 1 tsp by mouth every 4 hours as needed for cough GUAIFENESIN-CODEINE 44954817935 No Longe r Active Blaine HERNANDEZ Active ZITHROMAX Z-REYNA 250 MG ORAL TABLET 2 today, then 1 daily for 4 d ays AZITHROMYCIN 05487689567 No Longer Active Columba Raida Act nael ZITHROMAX 250 MG ORAL TABLET 2 po today, then 1 po q days 2-5 20 14/03/21 AZITHROMYCIN 75998715948 No Longer Active Carlton Hu MD Active ZITHROMAX Z-REYNA 250 MG ORAL TABLET 2 today, then 1 daily for 4 d ays AZITHROMYCIN 89239718277 No Longer Active Columba Raida Act nael AUGMENTIN 875-125 MG ORAL TABLET 1 po BID x 10 days 13/01/20 AMOXICILLIN-POT CLAVULANATE 75644926041 No Longer Active Diya De Guzman APRN Active ZITHROMAX 250 MG ORAL TABLET 2 po today, then 1 po q days 2-5 20 12/08/14 AZITHROMYCIN 75342115620 No Longer Active Carlton Hu MD Active TRAMADOL HCL 50 MG ORAL TABLET 1 po tid with ES Tylenol TRAMADOL HCL 51652946419 Active Carlton Hu MD Active PREMARIN 0.625 MG ORAL TABLET TAKE 1 TAB BY MOUTH DAILY ESTROGENS CONJUGATED 12262292216 No Longer Active Ridge Bess DO A ctive CYMBALTA 30 MG ORAL CAPSULE DELAYED RELEASE PARTICLES 1 cap by mouth daily DULOXETINE HCL 54863767548 No Longer Active Ridge tam DO Active AMOXICILLIN 500 MG ORAL CAPSULE 1 tab by mouth 3 times daily x 10 days AMOXICILLIN 81595270135 No Longer Active Carlton bustamante MD Active AMOXICILLIN 500 MG ORAL CAPSULE 1 tab by mouth 3 times daily x 10 days AMOXICILLIN 73595112958 No Longer Active Carlton bustamante MD Active PROMETHAZINE-CODEINE 6.25-10 MG/5ML ORAL SYRUP 1 tsp b y mouth every 8 hours prn cough PROMETHAZINE-CODEINE 65074362019 No Longer Acti ve Carlton Hu MD Active MEDROL 4 MG ORAL TABLET THERAPY PACK 6 pills x 1 day, then 5 pills x 1 day then 4 pills x 1 day, then 3 pills x 1 day, then 2 pills x 1 day, then 1 pill x 1 day, then stop METHYLPREDNISOLONE 43795174049 No Long er Active Perez Mora MD Active AZITHROMYCIN 250 MG ORAL TABLET 2 po qd x 1 day, then 1 po q d x 4 days AZITHROMYCIN 31975577663 No Longer Active Perez Ambriz MD Active SYMBICORT 160-4.5 MCG/ACT INHALATION AEROSOL 2 puffs bid wit h rinse after BUDESONIDE-FORMOTEROL FUMARATE 93394682637 N o Longer Active Perez Mora MD Active LYRICA 75 MG ORAL CAPSULE TAKE 1 CAPSULE BY MOUTH TWICE DAILY PREGABALIN 47990601877 No Longer Active Carlton Hu MD Acti ve TOPAMAX 25 MG ORAL TABLET 1 qHS x 1 week, then 1 BID x 1 week, then 1 qAM and 2 qHS x 1 week, then 2 BID (migraine prevention) T OPIRAMATE 08315173712 No Longer Active Jerica FUENTES Active TOPAMAX 50 MG ORAL TABLET take 1 tab po BID for migraines. 07/02 TOPIRAMATE 79372607516 No Longer Active Jerica FUENTES Active TOPAMAX 100 MG ORAL TABLET Take 1 tablet po bid TO PIRAMATE 56550408915 Active Carlton Hu MD Active TRIAMCINOLONE ACETONIDE 0.1 % EXTERNAL CREAM apply three roger es daily prn rash TRIAMCINOLONE ACETONIDE 27518657679 No Longer Active Carlton Hu MD Active PAXIL 40 MG ORAL TABLET take 1 tab po qday for depression 0 PAROXETINE HCL 21448549751 Active Carlton Hu MD Active CHERATUSSIN AC 100-10 MG/5ML ORAL SYRUP 5ml po q6hr PRN Cough 20 13/04/14 GUAIFENESIN-CODEINE 36431269054 No Longer Active Carlton Hu MD Active MEDROL 4 MG ORAL TABLET THERAPY PACK 6 tabs on day 1, 5 tabs on day 2, 4 tabs on day 3, 3 tabs on day 4, 2 tabs on day 5, 1 tab on day 6 2013 METHYLPREDNISOLONE 79295501825 No Longer Active Perez Mora MD Active AZITHROMYCIN 250 MG ORAL TABLET 2 po qd x 1 day, then 1 po q d x 4 days AZITHROMYCIN 52843569442 No Longer Active Perez Ambriz MD Active PROPRANOLOL HCL 60 MG ORAL TABLET 1 PO Q D PROPRANOLOL HCL 04431117636 No Longer Active Perez Mora MD Activ e CHERATUSSIN AC 100-10 MG/5ML ORAL SYRUP take one tsp po Q 6h ours prn cough GUAIFENESIN-CODEINE 12325582803 No Longer Active Zia Mora MD Active AUGMENTIN 875-125 MG ORAL TABLET 1 tab by mouth twice daily with food AMOXICILLIN-POT CLAVULANATE 43627196117 No Longer Act nael Perez Mora MD Active CHERATUSSIN AC 100-10 MG/5ML ORAL SYRUP 1 tsp by mouth every 4 hours as needed for cough GUAIFENESIN-CODEINE 21395276741 No Longe r Active Hugo Restrepo MD Active ACETAMINOPHEN-CODEINE #3 300-30 MG ORAL TABLET 1 PO Q 4-6 HRS [place] N PAIN ACETAMINOPHEN-CODEINE 47493967421 No Longer Active Hugo Restrepo MD Active LEVAQUIN 500 MG ORAL TABLET take one po QD LEVO FLOXACIN 40967456862 No Longer Active Griffin HERNANDEZ Active PREDNISONE 20 MG ORAL TABLET Take 3 tabs daily for 3 d ays, 2 tabs daily for 3 days, 1 tab daily for 3 days, 1/2 tab daily for 3 days 11/07 PREDNISONE 01941416194 No Longer Active Carlton Hu MD Acti ve AVELOX 400 MG ORAL TABLET 1 tab by mouth daily MOXIFLOXACIN HCL 36602191769 No Longer Active Carlton Hu MD Active CHERATUSSIN AC 100-10 MG/5ML ORAL SYRUP 1 tsp by mouth every 4 hours as needed for cough GUAIFENESIN-CODEINE 18681269256 No Longe r Active Hugo Restrepo MD Active AVELOX 400 MG ORAL TABLET 1 tab by mouth daily MOXIFLOXACIN HCL 12876213308 No Longer Active Marcy De La Rosa MD PhD Active TERBINAFINE HCL 250 MG ORAL TABLET 1 qDay T ERBINAFINE HCL 43779026050 No Longer Active Marcy De La Rosa MD PhD Active CHERATUSSIN AC 100-10 MG/5ML ORAL SYRUP 1 tsp by mouth every 4 hours as needed for cough GUAIFENESIN-CODEINE 33880275143 No Longe r Active Marcy De La Rosa MD PhD Active AVELOX 400 MG ORAL TABLET 1 tab by mouth daily MOXIFLOXACIN HCL 27976909124 No Longer Active Marcy De La Rosa MD PhD Active HYDROCODONE-ACETAMINOPHEN 5-325 MG ORAL TABLET 1 po q 6hr PRN co ugh HYDROCODONE-ACETAMINOPHEN 15611928120 No Longer Active Marcy De La Rosa MD PhD Active PREDNISONE 20 MG ORAL TABLET 2 tabs daily for 3 days, 1 tab daily for 3 days, 1/2 tab daily for 2 days PREDNISONE 49479043123 No Longer Active Carlton Hu MD Active CEFDINIR 300 MG ORAL CAPSULE by mouth twice a day 2011 CEFDINIR 99511514705 No Longer Active Carlton Hu MD Acti ve HYDROCHLOROTHIAZIDE 25 MG ORAL TABLET 1 TAB PO DAILY HYDROCHLOROTHIAZIDE 44208200222 Active Carlton Hu MD A ctive ACETAMINOPHEN-CODEINE #3 300-30 MG ORAL TABLET 1 tablet po q 4-6 hrs prn pain ACETAMINOPHEN-CODEINE 50085422655 No Longer Active Ridge Bess DO Active ZITHROMAX 250 MG ORAL TABLET 2 po today, then 1 po q days 2-5 20 03/07/07 AZITHROMYCIN 44676713432 No Longer Active Carlton Hu MD Active CHERATUSSIN AC 100-10 MG/5ML ORAL SYRUP take 1 tsp po q4-6 h ours prn cough GUAIFENESIN-CODEINE 78515604013 No Longer Active Jayden Hu MD Active ACETAMINOPHEN-CODEINE #3 300-30 MG ORAL TABLET 1 PO Q 4-6 HR PRN PAIN ACETAMINOPHEN-CODEINE 02642742370 No Longer Active Arnol Hu MD Active LORTAB 7.5-500 MG/15ML ORAL ELIXIR 7.5 ml po q 4 hour prn cough HYDROCODONE-ACETAMINOPHEN 94258520553 No Longer Active Carlton Hu MD Active PREDNISONE 20 MG ORAL TABLET 1 po bid 3 days, then 1 po q day 3 days PREDNISONE 63241210531 No Longer Active Carlton Hu MD Active CEFDINIR 300 MG ORAL CAPSULE by mouth twice a day 2011 CEFDINIR 23268486941 No Longer Active Carlton Hu MD Acti ve CEFDINIR 300 MG ORAL CAPSULE by mouth twice a day 2010 CEFDINIR 85041588175 No Longer Active Carlton Hu MD Acti ve CEFDINIR 300 MG ORAL CAPSULE by mouth twice a day 2010 CEFDINIR 09511440191 No Longer Active Carlton Hu MD Acti ve TESSALON PERLES 100 MG ORAL CAPSULE 1 tablet by mouth 3 times daily as needed for cough BENZONATATE 04465213893 No Longer Active Carlton Hu MD Active CEFDINIR 300 MG ORAL CAPSULE by mouth twice a day 2010 CEFDINIR 45571820813 No Longer Active Carlton Hu MD Acti ve ZITHROMAX Z-REYNA 250 MG ORAL TABLET 2 today, then 1 daily for 4 d ays AZITHROMYCIN 67830588081 No Longer Active Hugo Restrepo MD Active TESSALON PERLES 100 MG ORAL CAPSULE 1 tablet by mouth 3 times daily as needed for cough TESSALON PERLES 100 MG ORAL CAPSULE 02576 7 BENZONATATE Inactive PREDNISONE 20 MG ORAL TABLET 1 po bid 3 days, then 1 po q day 3 days PREDNISONE 20 MG ORAL TABLET 374767 PREDNISONE Greer ctive LORTAB 7.5-500 MG/15ML ORAL [...] cough CHERATUSSIN AC 100-10 MG/5ML ORAL SYRUP 858289 GUAIFENESIN-CODEINE Inactive ACETAMINOPHEN-CODEINE #3 300-30 MG ORAL TABLET 1 tablet po q 4-6 hrs prn pain ACETAMINOPHEN-CODEINE #3 300-30 MG ORAL TABLET ACETAMINOPHEN-CODEINE Inactive HYDROCODONE-ACETAMINOPHEN 5-325 MG ORAL TABLET 1 po q 6hr PRN co ugh HYDROCODONE-ACETAMINOPHEN 5-325 MG ORAL TABLET 063505 HYDROCODONE-ACETAMINOPHEN Inactive AVELOX 400 MG ORAL TABLET 1 tab by mouth daily AVELOX 400 MG ORAL TABLET 207248 MOXIFLOXACIN HCL Inactive CHERATUSSIN AC 100-10 MG/5ML ORAL SYRUP 1 tsp by mouth every 4 hours as needed for cough CHERATUSSIN AC 100-10 MG/5ML ORAL SYRUP 9 51269 GUAIFENESIN-CODEINE Inactive TERBINAFINE HCL 250 MG ORAL TABLET 1 qDay 07/08 TERBINAFINE HCL 250 MG ORAL TABLET 586154 TERBINAFINE HCL Inactive CHERATUSSIN AC 100-10 MG/5ML ORAL SYRUP 1 tsp by mouth every 4 hours as needed for cough CHERATUSSIN AC 100-10 MG/5ML ORAL SYRUP 9 28371 GUAIFENESIN-CODEINE Inactive ACETAMINOPHEN-CODEINE #3 300-30 MG ORAL TABLET 1 PO Q 4-6 HRS [place] N PAIN ACETAMINOPHEN-CODEINE #3 300-30 MG ORAL TABLET ACETAMINOPHEN-CODEINE Inactive CHERATUSSIN AC 100-10 MG/5ML ORAL SYRUP 1 tsp by mouth every 4 hours as needed for cough CHERATUSSIN AC 100-10 MG/5ML ORAL SYRUP 9 71879 GUAIFENESIN-CODEINE Inactive AUGMENTIN 875-125 MG ORAL TABLET 1 tab by mouth twice daily with food AUGMENTIN 875-125 MG ORAL TABLET 444828 AMOXICIL MADELINE-POT CLAVULANATE Inactive CHERATUSSIN AC 100-10 MG/5ML ORAL SYRUP take one tsp po Q 6h ours prn cough CHERATUSSIN AC 100-10 MG/5ML ORAL SYRUP 325057 GUAIFENESIN-CODEINE Inactive PROPRANOLOL HCL 60 MG ORAL TABLET 1 PO Q D PROPRANOLOL HCL 60 MG ORAL TABLET 005894 PROPRANOLOL HCL Inactive TOPAMAX 50 MG ORAL TABLET take 1 tab po BID for migraines. 07/02 TOPAMAX 50 MG ORAL TABLET 728610 TOPIRAMATE Inacti ve TOPAMAX 25 MG ORAL TABLET 1 qHS x 1 week, then 1 BID x 1 week, then 1 qAM and 2 qHS x 1 week, then 2 BID (migraine prevention) TOPAMAX 25 MG ORAL TABLET 058199 TOPIRAMATE Inactive LYRICA 75 MG ORAL CAPSULE TAKE 1 CAPSULE BY MOUTH TWICE DAILY LYRICA 75 MG ORAL CAPSULE PREGABALIN Inactive SYMBICORT 160-4.5 MCG/ACT INHALATION AEROSOL 2 puffs bid wit h rinse after SYMBICORT 160-4.5 MCG/ACT INHALATION AEROSOL BUDESONIDE- FORMOTEROL FUMARATE Inactive PROMETHAZINE-CODEINE 6.25-10 MG/5ML ORAL SYRUP 1 tsp b y mouth every 8 hours prn cough PROMETHAZINE-CODEINE 6.25-10 MG/ 5ML ORAL SYRUP 979614 PROMETHAZINE-CODEINE Inactive CYMBALTA 30 MG ORAL CAPSULE DELAYED RELEASE PARTICLES 1 cap by mouth daily CYMBALTA 30 MG ORAL CAPSULE DELAYED RELE ASE PARTICLES 111745 DULOXETINE HCL Inactive PREMARIN 0.625 MG ORAL TABLET TAKE 1 TAB BY MOUTH DAILY PREMARIN 0.625 MG ORAL TABLET ESTROGENS CONJUGATED Inactive CHERATUSSIN AC 100-10 MG/5ML ORAL SYRUP 1 tsp by mouth every 4 hours as needed for cough CHERATUSSIN AC 100-10 MG/5ML ORAL SYRUP 9 91865 GUAIFENESIN-CODEINE Inactive PROMETHAZINE-CODEINE 6.25-10 MG/5ML ORAL SYRUP 1 tsp b y mouth every 6 hours if needed for cough PROMETHAZINE-CODEINE 6.25-10 MG/5ML ORAL SYRUP 224249 PROMETHAZINE-CODEINE Inactive CHERATUSSIN AC 100-10 MG/5ML ORAL SYRUP 1 tsp by mouth every 4 hours as needed for cough CHERATUSSIN AC 100-10 MG/5ML ORAL SYRUP 9 77303 GUAIFENESIN-CODEINE Inactive FLUTICASONE PROPIONATE 50 MCG/ACT NASAL SUSPENSION 1 t o 2 sprays each nostril daily FLUTICASONE PROPIONATE 50 MCG/AC T NASAL SUSPENSION 7887820 FLUTICASONE PROPIONATE Inactive PREDNISONE 20 MG ORAL TABLET 3 tab PO qd x 2d, 2 tab P O qd x 2d, 1 tab PO qd x 2d, 1/2 tab PO qd x 2d PREDNISONE 20 MG ORAL TAB LET 606699 PREDNISONE Inactive LEVOFLOXACIN 500 MG ORAL TABLET 1 tab PO daily x 10 days LEVOFLOXACIN 500 MG ORAL TABLET 189532 LEVOFLOXACIN Inactive CYCLOBENZAPRINE HCL 10 MG ORAL TABLET 1 tablet by mouth BID prn had pain CYCLOBENZAPRINE HCL 10 MG ORAL TABLET 470492 CYCLOBENZAPRINE HCL Inactive ZOCOR 40 MG ORAL TABLET 1 tab by mouth daily 4 ZOCOR 40 MG ORAL TABLET 480423 SIMVASTATIN Inactive TUSSIONEX PENNKINETIC ER 10-8 MG/5ML [...] FLUTICASONE PROPIO EFE 50 MCG/ACT NASAL SUSPENSION 8811116 FLUTICASONE PROPIONATE Inactive TUSSIONEX PENNKINETIC ER 10-8 [...] three days PREDNISONE 20 MG ORAL TABLET 254904 PREDNIS ONE Inactive PROAIR HFA 108 (90 BASE) MCG/ACT INHALATION AEROSOL SO LUTION 2 puffs four times a day as needed PROAIR HFA 108 (90 B ASE) MCG/ACT INHALATION AEROSOL SOLUTION ALBUTEROL SULFATE Inactive ZITHROMAX Z-REYNA 250 MG ORAL TABLET 2 today, then 1 daily for 4 d ays ZITHROMAX Z-REYNA 250 MG ORAL TABLET 115486 AZITHROMYCIN Inactive CEFDINIR 300 MG ORAL CAPSULE by mouth twice a day 2010 CEFDINIR 300 MG ORAL CAPSULE 658874 CEFDINIR Inactive CEFDINIR 300 MG ORAL CAPSULE [...] 2-5 03/07/07 ZITHROMAX 250 MG ORAL TABLET 396401 AZITHROMYCIN [place] ctive CEFDINIR 300 MG ORAL CAPSULE by mouth twice a day 2011 CEFDINIR 300 MG ORAL CAPSULE 20020704 CEFDINIR Inactive PREDNISONE 20 MG ORAL TABLET 2 tabs daily for 3 days, 1 tab daily for 3 days, 1/2 tab daily for 2 days PREDNISONE 20 MG ORAL T ABLET 597093 PREDNISONE Inactive AVELOX 400 MG ORAL TABLET 1 tab by mouth daily AVELOX 400 MG ORAL TABLET 803275 MOXIFLOXACIN HCL Inactive AVELOX 400 MG ORAL TABLET 1 tab by mouth daily AVELOX 400 MG ORAL TABLET 586610 MOXIFLOXACIN HCL Inactive PREDNISONE 20 MG ORAL TABLET Take 3 tabs daily for 3 d ays, 2 tabs daily for 3 days, 1 tab daily for 3 days, 1/2 tab daily for 3 days 11/07 PREDNISONE 20 MG ORAL TABLET 287931 PREDNISONE Inactive LEVAQUIN 500 MG ORAL TABLET take one po QD LEVAQUIN 500 MG ORAL TABLET 321415 LEVOFLOXACIN Inactive AZITHROMYCIN 250 MG ORAL TABLET 2 po qd x 1 day, then 1 po q d x 4 days AZITHROMYCIN 250 MG ORAL TABLET 623516 AZITHROMY GIOVANNI Inactive MEDROL 4 MG ORAL TABLET THERAPY PACK 6 tabs on day 1, 5 tabs on day 2, 4 tabs on day 3, 3 tabs on day 4, 2 tabs on day 5, 1 tab on day 6 2013 MEDROL 4 MG ORAL TABLET THERAPY PACK 265717 METHYLPREDNISOLONE [place] ctive CHERATUSSIN AC 100-10 MG/5ML ORAL SYRUP 5ml po q6hr PRN Cough 20 13/04/14 CHERATUSSIN AC 100-10 MG/5ML ORAL SYRUP 119122 GUAIFENE SIN-CODEINE Inactive TRIAMCINOLONE ACETONIDE 0.1 % EXTERNAL CREAM apply three roger es daily prn rash TRIAMCINOLONE ACETONIDE 0.1 % EXTERNAL CREAM 101 4314 TRIAMCINOLONE ACETONIDE Inactive AZITHROMYCIN 250 MG ORAL TABLET 2 po qd x 1 day, then 1 po q d x 4 days AZITHROMYCIN 250 MG ORAL TABLET 446174 AZITHROMY GIOVANNI Inactive MEDROL 4 MG ORAL TABLET THERAPY PACK 6 pills x 1 day, then 5 pills x 1 day then 4 pills x 1 day, then 3 pills x 1 day, then 2 pills x 1 day, then 1 pill x 1 day, then stop MEDROL 4 MG ORAL TABLET THERAPY PACK 028655 METHYLPREDNISOLONE Inactive AMOXICILLIN 500 MG ORAL CAPSULE 1 tab by mouth 3 times daily x 10 days AMOXICILLIN 500 MG ORAL CAPSULE 745320 AMOXICILL IN Inactive AMOXICILLIN 500 MG ORAL CAPSULE 1 tab by mouth 3 times daily x 10 days AMOXICILLIN 500 MG ORAL CAPSULE 441001 AMOXICILL IN Inactive ZITHROMAX 250 MG ORAL TABLET 2 po today, then 1 po q days 2-5 20 12/08/14 ZITHROMAX 250 MG ORAL TABLET 654789 AZITHROMYCIN [place] ctive AUGMENTIN 875-125 MG ORAL TABLET 1 po BID x 10 days 20 13/01/20 AUGMENTIN 875-125 MG ORAL TABLET 042139 AMOXICILLIN-POT CLAVULANATE Inactive ZITHROMAX Z-REYNA 250 MG ORAL TABLET 2 today, then 1 daily for 4 d ays ZITHROMAX Z-REYNA 250 MG ORAL TABLET 962099 AZITHROMYCIN Inactive ZITHROMAX 250 MG ORAL TABLET 2 po today, then 1 po q days 2-5 20 14/03/21 ZITHROMAX 250 MG ORAL TABLET 596654 AZITHROMYCIN [place] ctive ZITHROMAX Z-REYNA 250 MG ORAL TABLET 2 today, then 1 daily for 4 d ays ZITHROMAX Z-REYNA 250 MG ORAL TABLET 276303 AZITHROMYCIN Inactive CEFDINIR 300 MG ORAL CAPSULE 1 po BID x 10 days 06/21 CEFDINIR 300 MG ORAL CAPSULE 20020704 CEFDINIR Inactive ZITHROMAX 250 MG ORAL TABLET 2 po today, then 1 po q days 2-5 20 13/08/10 ZITHROMAX 250 MG ORAL TABLET 549033 AZITHROMYCIN [place] ctive LEVAQUIN 500 MG ORAL TABLET 1 tablet by mouth daily 13/09/24 LEVAQUIN 500 MG ORAL TABLET 19971102 LEVOFLOXACIN Inactive SINGULAIR 10 MG ORAL TABLET 1 po qday for allergies 20 14/01/12 SINGULAIR 10 MG ORAL TABLET 20010504 MONTELUKAST SODIUM Inactive AMOXICILLIN 500 MG ORAL CAPSULE 2 po BID x 10 days 201 09/29/08 AMOXICILLIN 500 MG ORAL CAPSULE 410746 AMOXICILLIN Inactive PREDNISONE 20 MG ORAL TABLET 2 tabs daily for 3 days, 1 tab daily for 3 days, 1/2 tab daily for 2 days PREDNISONE 20 MG ORAL T ABLET 244428 PREDNISONE Inactive ZITHROMAX Z-REYNA 250 MG ORAL TABLET 2 today, then 1 daily for 4 d ays ZITHROMAX Z-REYNA 250 MG ORAL TABLET 791112 AZITHROMYCIN Inactive PREDNISONE 20 MG ORAL TABLET 2 tabs daily for 3 days, 1 tab daily for 3 days, 1/2 tab daily for 2 days PREDNISONE 20 MG ORAL T ABLET 175666 PREDNISONE Inactive ZITHROMAX 250 MG ORAL TABLET 2 po today, then 1 po q days 2-5 20 14/09/04 ZITHROMAX 250 MG ORAL TABLET 063988 AZITHROMYCIN Greer ctive AMOXICILLIN 500 MG ORAL CAPSULE 1 cap by mouth three times a day AMOXICILLIN 500 MG ORAL CAPSULE 757027 AMOXICILLIN Inactive TERBINAFINE HCL 250 MG ORAL TABLET 1 qDay for nail fungus 7 TERBINAFINE HCL 250 MG ORAL TABLET 867798 TERBINAFINE HCL Inact nael AUGMENTIN 875-125 MG ORAL TABLET 1 po BID x 10 days 16/03/22 AUGMENTIN 875-125 MG ORAL TABLET 183589 AMOXICILLIN-POT CLAVULANATE Inactive PREDNISONE 20 MG ORAL TABLET 2 po qd x 5 days PREDNISONE 20 MG ORAL TABLET 698889 PREDNISONE Inactive Vital Signs Date Name Value [...] - Chem istry sodium, serum 132 mmol/L 159-183 0253/07/12 potassium, serum 2.7 mmol/L 3.5-5.2 chloride, serum 93 mmol/L 98-107 carbon dioxide, venous blood 30.8 mmol/L 21.0-32 .0 blood glucose 107 mg/dL 65-110 calcium, serum 9.3 mg/dL 8.5-10.1 urea nitrogen, blood 12 mg/dL 7-18 creatinine, serum 1.00 mg/dL 0.60-1.30 sodium, serum 142 mmol/L 134-942 2338/07/17 potassium, serum 4.2 mmol/L 3.5-5.2 chloride, serum 106 mmol/L 98-107 carbon dioxide, venous blood 29.9 mmol/L 21.0-32 .0 blood glucose 108 mg/dL 65-110 calcium, serum 9.1 mg/dL 8.5-10.1 urea nitrogen, blood 11 mg/dL 7-18 creatinine, serum 0.81 mg/dL 0.60-1.30 sodium, serum 139 mmol/L 698-627 3239/03/19 potassium, serum 3.6 mmol/L 3.5-5.2 chloride, serum 100 mmol/L 98-107 carbon dioxide, venous blood 30.3 mmol/L 21.0-32 .0 blood glucose 101 mg/dL 65-110 calcium, serum 9.4 mg/dL 8.5-10.1 urea nitrogen, blood 10 mg/dL 7- creatinine, serum 0.96 mg/dL 0.60-1.30 Lab Report: Rapid Strep - Lab Microbial identification kit, rapid strep method Negative Negative Encounters Code Encounter Date Provider Facility CPT-93769 Level 3 Est. Patient 11:34:49 TRANSFER DRIVER Perez Mora MD [facility] CPT-33883 Level 4 Est. Patient 09:51:32 TRANSFER DRIVER Carlton rich MD [facility] CPT-00022 Level 3 Est. Patient 10:26:00 TRANSFER DRIVER Elise stephenson [facility] CPT-71807 Level 3 Est. Patient 13:35:41 TRANSFER DRIVER Carlton rich MD [facility] CPT-57795 Level 3 Est. Patient 10:03:52 TRANSFER DRIVER Carlton rich MD [facility] CPT-62927 Level 3 Est. Patient 12:17:50 CDT Hugo Restrepo MD [facility] CPT-98865 Level 3 Est. Patient 13:42:38 CDT Elise stephenson [facility] CPT-42140 Level 3 Est. Patient 13:23:51 CDT Diya cobian [facility]-92429 Level 3 Est. Patient 14:22:19 TRANSFER DRIVER Diya cobian [facility] CPT-37092 Level 3 Est. Patient 10:11:46 CDT Carlton rich MD [facility] CPT-33415 Level 3 Est. Patient 17:29:43 CDT Elise Are ll [employer] [facility] CPT-33304 Level 3 Est. Patient 11:58:06 CDT Elise Are ll [employer] [facility] CPT-29524 Level 4 Est. Patient 14:36:51 CDT Carlton rich MD [facility] CPT-65200 Level 3 Est. Patient 18:16:00 TRANSFER DRIVER Blaine Freeman [facility] CPT-73966 Level 3 Est. Patient 09:45:49 TRANSFER DRIVER Carlton rich MD [facility] CPT-66037 Level 3 Est. Patient 13:19:20 CDT Carlton rich MD [facility] CPT-16701 Level 3 Est. Patient 13:06:43 CDT Ridge tam DO [facility] CPT-88188 Level 3 Est. Patient 10:03:07 CDT Perez Mora MD [facility] CPT-86341 Level 3 Est. Patient 19:50:35 TRANSFER DRIVER Carlton rich MD [facility] CPT-65629 Level 4 Est. Patient 18:05:01 TRANSFER DRIVER Carlton rich MD [facility] CPT-14835 Level 3 Est. Patient 10:45:55 TRANSFER DRIVER Hugo Restrepo MD [facility] CPT-43940 Level 3 Est. Patient 14:12:49 CDT Griffin lincoln [facility] CPT-36449 Level 3 Est. Patient 17:37:24 CDT Carlton rich MD [facility] CPT-96510 Level 3 Est. Patient 16:51:54 CDT Carlton rich MD [facility] CPT-75367 Level 3 Est. Patient 12:18:11 CDT Hugo Restrepo MD [facility] CPT-62225 Level 3 Est. Patient 11:30:25 CDT Marcy crisostomo MD PhD [facility] CPT-97149 Level 3 Est. Patient 12:00:47 TRANSFER DRIVER Carlton rich MD [facility] CPT-38461 Level 3 Est. Patient 16:31:06 TRANSFER DRIVER Carlton rich MD [facility] CPT-81465 Level 3 Est. Patient 16:23:24 TRANSFER DRIVER Ridge tam [facility] CPT-98141 Level 3 Est. Patient 12:34:12 CDT Carlton rich MD [facility] CPT-87434 Level 2 Est. Patient 15:43:33 CDT Robi armstrong MD [facility] CPT-32871 Level 4 Est. Patient 14:04:44 CDT Carlton rich MD [facility] CPT-23643 Level 3 Est. Patient 05:47:59 CDT Ridge tam [facility] CPT-99477 Level 3 Est. Patient 13:12:53 TRANSFER DRIVER Carlton rich MD [facility] CPT-81305 Level 3 Est. Patient 14:26:53 CDT Hugo Restrepo MD [facility] Procedures Code Procedure Name Date Entry Date Standard Desc ription CPT-J1040 Depo Medrol 80 mg (Methyl Prednisolone A cetate) 10:42:44 CDT CPT-J1100 Decadron 8mg (Dexamethasone) 10:42:44 CDT 2 CPT-J0696 Rocephin 1gm Inj Solr 14:32:13 CDT CPT-J1020 Depo Medrol 60 mg (Methyl Prednisolone A cetate) 14:32:13 CDT CPT-J1100 Decadron 6mg (Dexamethasone) 14:32:13 CDT 2 CPT-24310 Hip bilat min 2V w AP pelvis 13:16:20 CDT 2 CPT-76966 Pelvis only 13:07:33 CDT CPT-57504 Spec Collection and Handling Fee 11:25:12 C DT CPT-41854 Fluzone Quadrivalent Intramuscular Suspe nsion 0.5 ML 14:31:55 CDT CPT-73608 Abx/Therapy Injection 13:28:47 TRANSFER DRIVER CPT-J2930 Solu Medrol 125 mg (Methyl Prednisolone Sodium Succinate) 12:00:47 TRANSFER DRIVER CPT-12898 Venipuncture Draw Fee 11:33:31 CDT CPT-39955 EKG Trac and Interp 11:21:09 CDT CPT-45080 Chest 2V Frontal and Lat 11:21:09 CDT 12/15 CPT-66400 Venipuncture Draw Fee 08:02:34 CDT CPT-19071 Chest 2V Frontal and Lat 05:47:59 CDT 06/05
--- OUTSIDE RECORDS SUMMARY | 2019-10-08 08:11 | XMS REPORT | Clinical Summary ---
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 Unspecified sinusitis (chronic) Bronchitis-Acute 466.0 Active Carlton Hu MD Acute bronchitis URI - acute 465.9 Active Elise Whitmore COAL PULVERIZING OPERATOR Acute upper respiratory infections of unspecified site Pharyngitis acute 462 Active Elise Whitmore A PRN Acute pharyngitis Rhinitis, acute 460 Active Elise Whitmore APR N Acute nasopharyngitis [common cold] Sinusitis 473.9 Active 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 De Guzman 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 PULVERIZING OPERATOR Unspecified sinusitis (chronic) Bronchitis 490 Active Diya De Guzman COAL PULVERIZING OPERATOR Bronchitis, not specified as acute or [...] a d ay as needed ALBUTEROL SULFATE 04879434020 Active Jillina Frakerriel APR N Active MUCINEX DM MAXIMUM STRENGTH 60-1200 MG [id number] 1 tab po q am 2016 DEXTROMETHORPHAN-GUAIFENESIN 79010532957 Active Jillina Frazell COAL PULVERIZING 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 TUSSIONEX PENNKINETIC ER 10-8 MG/5ML LQCR 5ml po q12hr PRN Cough 20 14/06/21 HYDROCOD POLST-CHLORPHEN POLST 24389573022 Active Jillina Frazell COAL PULVERIZING 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 PREDNISONE 20 MG TAB 2 tabs daily for 3 days, 1 t ab daily for 3 days, 1/2 tab daily for 2 days PREDNISONE 32983526783 Active Jillina Cesarl COAL PULVERIZING 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 TUSSIONEX PENNKINETIC ER 10-8 MG/5ML ORAL LQCR 5 mL PO q 12 hrs PRN cough HYDROCOD POLST-CHLORPHEN POLST 10801274786 No Longer Active Jillina Frazell COAL PULVERIZING 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 FLUTICASONE PROPIONATE 50 MCG/ACT SUSP 2 sprays each n ostril daily until bottle is empty FLUTICASONE PROPIONATE 26129255448 No Longer Ac tive Jillina Frazell COAL PULVERIZING 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 ASMANEX 60 METERED DOSES 220 MCG/INH AEPB 1 puff bid with ri nse after MOMETASONE FUROATE 82227127948 No Longer Active Venullina Darlin ell COAL PULVERIZING 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 ZITHROMAX Z-REYNA 250 MG TABS 2 today, then 1 daily for 4 days 201 09/29/14 AZITHROMYCIN 90673201246 No Longer Active Elise Whitmore APRN Active TUSSIONEX PENNKINETIC ER 10-8 MG/5ML LQCR 5ml po q12hr PRN Cough HYDROCOD POLST-CHLORPHEN POLST 00360080434 No Longer Active Elise Whitmore APRN Active MUCINEX D 60-600 MG [id number] 1 tab po q am PSEUDOEPHEDRINE-GUAIFENESIN 08763820942 Active Jillina Frazell COAL PULVERIZING 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 PREDNISONE 20 MG TAB 2 tabs daily for 3 days, 1 t ab daily for 3 days, 1/2 tab daily for 2 days PREDNISONE 01043961361 No Longer Active Jillina Frazell COAL PULVERIZING 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 AMOXICILLIN 500 MG CAPS 2 po BID x 10 days AMOX ICILLIN 32866427668 No Longer Active Jillina Frazell COAL PULVERIZING 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 SINGULAIR 10 MG TABS 1 po qday for allergies 2 MONTELUKAST SODIUM 58282654077 No Longer Active Carlton Hu MD Acti ve LEVAQUIN 500 MG TAB 1 tablet by mouth daily LEV OFLOXACIN 83794368873 No Longer Active Carlton Hu MD Active FLUTICASONE PROPIONATE 50 MCG/ACT SUSP 2 sprays each n ostril daily for 2 weeks, then 1 spray each nostril daily. FLUTICASONE PRO PIONATE 81680708012 Active Elise Whitmore APRN Active ZITHROMAX 250 MG TAB 2 po today, then 1 po q days 2-5 AZITHROMYCIN 14438230385 No Longer Active Elise Whitmore APRN Acti ve XANAX 0.5 MG TABS one tablet by mouth daily prn anxiety ALPRAZOLAM 25304470173 Active Elise Whitmore APRN Active CYMBALTA 30 MG CPEP 1 cap by mouth daily for depression DULOXETINE HCL 01929755877 Active Carlton Hu MD Active CEFDINIR 300 MG CAPS 1 po BID x 10 days CEFDINI R 72426849383 No Longer Active Carlton Hu MD Active ZOCOR 40 MG TAB 1 tab by mouth daily SIMVASTATI N 70382859384 No Longer Active Carlton Hu MD Active CYCLOBENZAPRINE HCL 10 MG TABS 1 tablet by mouth BID prn had cherelle n CYCLOBENZAPRINE HCL 84150189105 No Longer Active Carlton Hu MD Active LEVOFLOXACIN 500 MG ORAL TABS 1 tab PO daily x 10 days LEVOFLOXACIN 46110678765 No Longer Active Carlton Hu MD Acti ve PREDNISONE 20 MG ORAL TABS 3 tab PO qd x 2d, 2 tab PO qd x 2d, 1 tab PO qd x 2d, 1/2 tab PO qd x 2d PREDNISONE 63705407826 No Longer Active Carlton Hu MD Active FLUTICASONE PROPIONATE 50 MCG/ACT SUSP 1 to 2 sprays each no stril daily FLUTICASONE PROPIONATE 53489026994 No Longer Active T jaz HERNANDEZ Active CHERATUSSIN AC 100-10 MG/5ML SYRP 1 tsp by mouth every 4 hours as needed for cough GUAIFENESIN-CODEINE 81177603418 No Longer Activ e Blaine HERNANDEZ Active PROMETHAZINE-CODEINE 6.25-10 MG/5ML SYRP 1 tsp by mout h every 6 hours if needed for cough PROMETHAZINE-CODEINE 59438288581 No Long er Active Blaine HERNANDEZ Active CHERATUSSIN AC 100-10 MG/5ML SYRP 1 tsp by mouth every 4 hours as needed for cough GUAIFENESIN-CODEINE 85968970218 No Longer Activ e Blaine HERNANDEZ Active ZITHROMAX Z-REYNA 250 MG TABS 2 today, then 1 daily for 4 days 201 08/30/03 AZITHROMYCIN 26517471372 No Longer Active Columbabrady Parrish Act nael ZITHROMAX 250 MG TAB 2 po today, then 1 po q days 2-5 AZITHROMYCIN 39408471398 No Longer Active Carlton Hu MD Acti ve ZITHROMAX Z-REYNA 250 MG TABS 2 today, then 1 daily for 4 days 201 08/07/20 AZITHROMYCIN 91347539954 No Longer Active Columba Parrish Act nael AUGMENTIN 875-125 MG TAB 1 po BID x 10 days AMOXICILLIN- POT CLAVULANATE 40267824349 No Longer Active Diya De Guzman APRN Active ZITHROMAX 250 MG TAB 2 po today, then 1 po q days 2-5 AZITHROMYCIN 52739228042 No Longer Active Carlton Hu MD Acti ve TRAMADOL HCL 50 MG TABS 1 po tid with ES Tylenol TRAMADOL HCL 02722697330 Active Carlton Hu MD Active PREMARIN 0.625 MG TABS TAKE 1 TAB BY MOUTH DAILY 07/25 ESTROGENS CONJUGATED 57510215674 No Longer Active Ridge Bess DO Active CYMBALTA 30 MG CPEP 1 cap by mouth daily DULOXE SNEHA HCL 55605730510 No Longer Active Ridge Bess DO Active AMOXICILLIN 500 MG CAP 1 tab by mouth 3 times daily x 10 days 20 14/04/28 AMOXICILLIN 59352372547 No Longer Active Carlton Hu MD Active AMOXICILLIN 500 MG CAP 1 tab by mouth 3 times daily x 10 days 20 13/03/08 AMOXICILLIN 20362553439 No Longer Active Carlton Hu MD Active PROMETHAZINE-CODEINE 6.25-10 MG/5ML SYRP 1 tsp by mouth ever y 8 hours prn cough PROMETHAZINE-CODEINE 69206400093 No Longer Active Robert Hu MD Active MEDROL (REYNA) 4 MG TABS 6 pills x 1 day, then 5 pill s x 1 day then 4 pills x 1 day, then 3 pills x 1 day, then 2 pills x 1 day, then 1 pill x 1 day, then stop METHYLPREDNISOLONE 01564176789 No Longer Active Parris Mora MD Active AZITHROMYCIN 250 MG TABS 2 po qd x 1 day, then 1 po qd x 4 days AZITHROMYCIN 02221403374 No Longer Active Perez Mora MD Active SYMBICORT 160-4.5 MCG/ACT AERO 2 puffs bid with rinse after 2011 BUDESONIDE-FORMOTEROL FUMARATE 85887303449 No Longer Active Perez Mora MD Active LYRICA 75 MG CAPS TAKE 1 CAPSULE BY MOUTH TWICE DAILY 2013 PREGABALIN 70804927558 No Longer Active Carlton Hu MD Active LYRICA 100 MG CAPS Take 1 tab po BID for fibromyalgia PREGABALIN 53545368378 Active Carlton Hu MD Active TOPAMAX 25 MG TABS 1 qHS x 1 week, then 1 BID x 1 week, then 1 qAM and 2 qHS x 1 week, then 2 BID (migraine prevention) TOPIRAMAT E 53556799798 No Longer Active Jerica FUENTES Active TOPAMAX 50 MG TABS take 1 tab po BID for migraines. 12/07/10 TOPIRAMATE 46636041892 No Longer Active Jerica FUENTES Ac tive TOPAMAX 100 MG TABS Take 1 tablet po bid TOPIRAMATE 4999 8059769 Active Elise Whitmore APRN Active TRIAMCINOLONE ACETONIDE 0.1 % CREA apply three times daily prn r beatrice TRIAMCINOLONE ACETONIDE 48673843425 No Longer Active Carlton Hu MD Active PAXIL 40 MG TAB take 1 tab po qday for depression PAROXETINE HCL 72811817552 Active Elise Whitmore APRN Active CHERATUSSIN AC 100-10 MG/5ML SYRP 5ml po q6hr PRN Cough GUAIFENESIN-CODEINE 00085803653 No Longer Active Carlton Hu MD Active MEDROL (REYNA) 4 MG TABS 6 tabs on day 1, 5 tabs on d ay 2, 4 tabs on day 3, 3 tabs on day 4, 2 tabs on day 5, 1 tab on day 6 METHYLPREDNISOLONE 73502503028 No Longer Active Perez Mora MD Active AZITHROMYCIN 250 MG TABS 2 po qd x 1 day, then 1 po qd x 4 days AZITHROMYCIN 79335617292 No Longer Active Perez Mora MD Active PROPRANOLOL HCL 60 MG TABS 1 PO Q D PROPRANOL OL HCL 31276137814 No Longer Active Perez Mora MD Active CHERATUSSIN AC 100-10 MG/5ML SYRP take one tsp po Q 6hours prn c ough GUAIFENESIN-CODEINE 85858451117 No Longer Active Perez Means Active AUGMENTIN 875-125 MG TAB 1 tab by mouth twice daily with food 20 12/03/31 AMOXICILLIN-POT CLAVULANATE 39085805961 No Longer Active Chanel Moar MD Active CHERATUSSIN AC 100-10 MG/5ML SYRP 1 tsp by mouth every 4 hours as needed for cough GUAIFENESIN-CODEINE 33118520568 No Longer Activ e Hugo Resrtepo MD Active ACETAMINOPHEN-CODEINE #3 300-30 MG TABS 1 PO Q 4-6 HRS PRN PAIN ACETAMINOPHEN-CODEINE 25425390749 No Longer Active Hugo Restrepo MD Active LEVAQUIN 500 MG TABS take one po QD LEVOFLOXACI N 73902340556 No Longer Active Griffin HERNANDEZ Active PREDNISONE 20 MG TAB Take 3 tabs daily for 3 days , 2 tabs daily for 3 days, 1 tab daily for 3 days, 1/2 tab daily for 3 days P REDNISONE 32631420268 No Longer Active Carlton Hu MD Active AVELOX 400 MG TABS 1 tab by mouth daily MOXIFLO XACIN HCL 43814186376 No Longer Active Carlton Hu MD Active CHERATUSSIN AC 100-10 MG/5ML SYRP 1 tsp by mouth every 4 hours as needed for cough GUAIFENESIN-CODEINE 70672593228 No Longer Activ e Hugo Restrepo MD Active AVELOX 400 MG TABS 1 tab by mouth daily MOXIFLO XACIN HCL 54204340515 No Longer Active Marcy De La Rosa MD PhD Active TERBINAFINE HCL 250 MG TABS 1 qDay TERBINAF INE HCL 53304967873 No Longer Active Marcy De La Rosa MD PhD Active CHERATUSSIN AC 100-10 MG/5ML SYRP 1 tsp by mouth every 4 hours as needed for cough GUAIFENESIN-CODEINE 34921441021 No Longer Activ e Marcy De La Rosa MD PhD Active AVELOX 400 MG TABS 1 tab by mouth daily MOXIFLO XACIN HCL 69754838795 No Longer Active Marcy De La Rosa MD PhD Active HYDROCODONE-ACETAMINOPHEN 5-325 MG TABS 1 po q 6hr PRN cough 201 05/09/16 HYDROCODONE-ACETAMINOPHEN 41765470468 No Longer Active Marcy De La Rosa MD PhD Active PREDNISONE 20 MG TAB 2 tabs daily for 3 days, 1 t ab daily for 3 days, 1/2 tab daily for 2 days PREDNISONE 27805105383 No Longer Active Carlton Hu MD Active CEFDINIR 300 MG CAPS by mouth twice a day CEFDI ODILIA 84954393372 No Longer Active Carlton Hu MD Active HYDROCHLOROTHIAZIDE 25 MG TABS 1 TAB PO DAILY H YDROCHLOROTHIAZIDE 97448712079 Active Carlton Hu MD Active ACETAMINOPHEN-CODEINE #3 300-30 MG TABS 1 tablet po q 4-6hrs prn pain ACETAMINOPHEN-CODEINE 66653385865 No Longer Active Ridge Bess DO Active ZITHROMAX 250 MG TAB 2 po today, then 1 po q days 2-5 AZITHROMYCIN 94042766326 No Longer Active Carlton Hu MD Acti ve CHERATUSSIN AC 100-10 MG/5ML SYRP take 1 tsp po q4-6 hours prn c ough GUAIFENESIN-CODEINE 38532346428 No Longer Active Carlton Hu MD Active ACETAMINOPHEN-CODEINE #3 300-30 MG TABS 1 PO Q 4-6 HR PRN PAIN 2 ACETAMINOPHEN-CODEINE 48371797575 No Longer Active Carlton rich MD Active LORTAB 7.5-500 MG/15ML ELIX 7.5 ml po q 4 hour prn cough HYDROCODONE-ACETAMINOPHEN 27082468973 No Longer Active Carlton Hu MD Active PREDNISONE 20 MG TAB 1 po bid 3 days, then 1 po q day 3 days 201 05/03/07 PREDNISONE 44914178484 No Longer Active Carlton Hu MD Active ELMIRON 100 MG CAPS 2 tablets in the am and 1 tablet at hs PENTOSAN POLYSULFATE SODIUM 66459770395 Active Carlton Hu MD Ac tive CEFDINIR 300 MG CAPS by mouth twice a day CEFDI ODILIA 96803677401 No Longer Active Carlton Hu MD Active CEFDINIR 300 MG CAPS by mouth twice a day CEFDI ODILIA 64926197389 No Longer Active Carlton Hu MD Active CEFDINIR 300 MG CAPS by mouth twice a day CEFDI ODILIA 73777231523 No Longer Active Carlton Hu MD Active TESSALON PERLES 100 MG CAP 1 tablet by mouth 3 times daily a s needed for cough BENZONATATE 62419364983 No Longer Active Carlton bustamante MD Active CEFDINIR 300 MG CAPS by mouth twice a day CEFDI ODILIA 20356628491 No Longer Active Carlton Hu MD Active ZITHROMAX Z-REYNA 250 MG TABS 2 today, then 1 daily for 4 days 201 04/09/17 AZITHROMYCIN 55382855568 No Longer Active Hugo Restrepo MD Active TESSALON PERLES 100 MG CAP 1 tablet by mouth 3 times daily a s needed for cough TESSALON PERLES 100 MG CAP 633462 BENZONATATE I nactive PREDNISONE 20 MG TAB 1 po bid 3 days, then 1 po q day 3 days 201 05/03/07 PREDNISONE 20 MG TAB 030249 PREDNISONE Inactive LORTAB 7.5-500 MG/15ML ELIX 7.5 ml po q 4 hour prn cough LORTAB 7.5-500 MG/15ML ELIX HYDROCODONE-ACETAMINOPHEN Inacti ve ACETAMINOPHEN-CODEINE #3 300-30 MG TABS 1 PO Q 4-6 HR PRN PAIN 2 ACETAMINOPHEN-CODEINE #3 300-30 MG TABS 725049 ACETAMIN OPHEN-CODEINE Inactive CHERATUSSIN AC 100-10 MG/5ML SYRP take 1 tsp po q4-6 hours prn c ough CHERATUSSIN AC 100-10 MG/5ML SYRP 941287 GUAIFENESIN-CO DEINE Inactive ACETAMINOPHEN-CODEINE #3 300-30 MG TABS 1 tablet po q 4-6hrs prn pain ACETAMINOPHEN-CODEINE #3 300-30 MG TABS 510425 ACETAMIN OPHEN-CODEINE Inactive HYDROCODONE-ACETAMINOPHEN 5-325 MG TABS 1 po q 6hr PRN cough 201 05/09/16 HYDROCODONE-ACETAMINOPHEN 5-325 MG TABS 558681 HYDROCODONE-ACETAMINOPHEN Inactive AVELOX 400 MG TABS 1 tab by mouth daily A VELOX 400 MG TABS 247364 MOXIFLOXACIN HCL Inactive CHERATUSSIN AC 100-10 MG/5ML SYRP 1 tsp by mouth every 4 hours as needed for cough CHERATUSSIN AC 100-10 MG/5ML SYRP 029503 GUAIFENESIN-CODEINE Inactive TERBINAFINE HCL 250 MG TABS 1 qDay TERBINAFINE HCL 250 MG TABS 239061 TERBINAFINE HCL Inactive CHERATUSSIN AC 100-10 MG/5ML SYRP 1 tsp by mouth every 4 hours as needed for cough CHERATUSSIN AC 100-10 MG/5ML SYRP 837925 GUAIFENESIN-CODEINE Inactive ACETAMINOPHEN-CODEINE #3 300-30 MG TABS 1 PO Q 4-6 HRS PRN PAIN ACETAMINOPHEN-CODEINE #3 300-30 MG TABS 498492 ACETAMINOPHEN-CODEIN E Inactive CHERATUSSIN AC 100-10 MG/5ML SYRP 1 tsp by mouth every 4 hours as needed for cough CHERATUSSIN AC 100-10 MG/5ML SYRP 440469 GUAIFENESIN-CODEINE Inactive AUGMENTIN 875-125 MG TAB 1 tab by mouth twice daily with food 20 12/03/31 AUGMENTIN 875-125 MG TAB 151900 AMOXICILLIN-POT CLAVULA EFE Inactive CHERATUSSIN AC 100-10 MG/5ML SYRP take one tsp po Q 6hours prn c ough CHERATUSSIN AC 100-10 MG/5ML SYRP 455065 GUAIFENESIN-CO DEINE Inactive PROPRANOLOL HCL 60 MG TABS 1 PO Q D P ROPRANOLOL HCL 60 MG TABS 981080 PROPRANOLOL HCL Inactive TOPAMAX 50 MG TABS take 1 tab po BID for migraines. 12/07/10 TOPAMAX 50 MG TABS 835317 TOPIRAMATE Inactive TOPAMAX 25 MG TABS 1 qHS x 1 week, then 1 BID x 1 week, then 1 qAM and 2 qHS x 1 week, then 2 BID (migraine prevention) TOPAMAX 2 5 MG TABS 039897 TOPIRAMATE Inactive LYRICA 75 MG CAPS TAKE 1 CAPSULE BY MOUTH TWICE DAILY LYRICA 75 MG CAPS PREGABALIN Inactive SYMBICORT 160-4.5 MCG/ACT AERO 2 puffs bid with rinse after 2011 SYMBICORT 160-4.5 MCG/ACT AERO BUDESONIDE-FORMOT SÁNCHEZ FUMARATE Inactive PROMETHAZINE-CODEINE 6.25-10 MG/5ML SYRP 1 tsp by mouth ever y 8 hours prn cough PROMETHAZINE-CODEINE 6.25-10 MG/5ML SYRP 481767 PROMETHAZINE-CODEINE Inactive CYMBALTA 30 MG CPEP 1 cap by mouth daily CYMBALTA 30 MG CPEP 642461 DULOXETINE HCL Inactive PREMARIN 0.625 MG TABS TAKE 1 TAB BY MOUTH DAILY 07/25 PREMARIN 0.625 MG TABS ESTROGENS CONJUGATED Inactive CHERATUSSIN AC 100-10 MG/5ML SYRP 1 tsp by mouth every 4 hours as needed for cough CHERATUSSIN AC 100-10 MG/5ML SYRP 123097 GUAIFENESIN-CODEINE Inactive PROMETHAZINE-CODEINE 6.25-10 MG/5ML SYRP 1 tsp by mout h every 6 hours if needed for cough PROMETHAZINE-CODEINE 6.25-10 MG/5ML SYRP 350708 PROMETHAZINE-CODEINE Inactive CHERATUSSIN AC 100-10 MG/5ML SYRP 1 tsp by mouth every 4 hours as needed for cough CHERATUSSIN AC 100-10 MG/5ML SYRP 880124 GUAIFENESIN-CODEINE Inactive FLUTICASONE PROPIONATE 50 MCG/ACT SUSP 1 to 2 sprays each no stril daily FLUTICASONE PROPIONATE 50 MCG/ACT SUSP 8475137 FLUTICASONE PROPIONATE Inactive PREDNISONE 20 MG ORAL TABS 3 tab PO qd x 2d, 2 tab PO qd x 2d, 1 tab PO qd x 2d, 1/2 tab PO qd x 2d PREDNISONE 20 MG ORAL TABS 943488 PREDNISONE Inactive LEVOFLOXACIN 500 MG ORAL TABS 1 tab PO daily x 10 days LEVOFLOXACIN 500 MG ORAL TABS 032591 LEVOFLOXACIN Inactive CYCLOBENZAPRINE HCL 10 MG TABS 1 tablet by mouth BID prn had cherelle n CYCLOBENZAPRINE HCL 10 MG TABS 523911 CYCLOBENZAPRINE H CL Inactive ZOCOR 40 MG TAB 1 tab by mouth daily ZOCOR 40 M G TAB 731699 SIMVASTATIN Inactive TUSSIONEX PENNKINETIC ER 10-8 MG/5ML [...] empty FLUTICASONE PROPIONATE 50 MCG/ACT SUSP 17 85994 FLUTICASONE PROPIONATE Inactive TUSSIONEX PENNKINETIC ER 10-8 MG/5ML ORAL LQCR 5 mL PO q 12 hrs PRN cough TUSSIONEX PENNKINETIC ER 10-8 MG/5ML ORAL LQCR HYDROCOD POLST-CHLORPHEN POLST Inactive ZITHROMAX Z-REYNA 250 MG TABS 2 today, then 1 daily for 4 days 201 04/09/17 ZITHROMAX Z-REYNA 250 MG TABS 2719465 AZITHROMYCIN Inac tive CEFDINIR 300 MG CAPS [...] q days 2-5 ZITHROMAX 250 MG TAB 5624738 AZITHROMYCIN Inactive CEFDINIR 300 MG CAPS by mouth twice a day CEFDINIR 300 MG CAPS 20020704 CEFDINIR Inactive PREDNISONE 20 MG TAB 2 tabs daily for 3 days, 1 t ab daily for 3 days, 1/2 tab daily for 2 days PREDNISONE 20 MG TAB 243586 PREDNISON E Inactive AVELOX 400 MG TABS 1 tab by mouth daily A VELOX 400 MG TABS 135864 MOXIFLOXACIN HCL Inactive AVELOX 400 MG TABS 1 tab by mouth daily A VELOX 400 MG TABS 688223 MOXIFLOXACIN HCL Inactive PREDNISONE 20 MG TAB Take 3 tabs daily for 3 days , 2 tabs daily for 3 days, 1 tab daily for 3 days, 1/2 tab daily for 3 days PREDNISONE 20 MG TAB 396088 PREDNISONE Inactive LEVAQUIN 500 MG TABS take one po QD LEVAQUIN 50 0 MG TABS 033325 LEVOFLOXACIN Inactive AZITHROMYCIN 250 MG TABS 2 po qd x 1 day, then 1 po qd x 4 days AZITHROMYCIN 250 MG TABS 4266594 AZITHROMYCIN Inactiv e MEDROL (REYNA) 4 MG TABS 6 tabs on day 1, 5 tabs on d ay 2, 4 tabs on day 3, 3 tabs on day 4, 2 tabs on day 5, 1 tab on day 6 MEDROL (REYNA) 4 MG TABS 563075 METHYLPREDNISOLONE Inactive CHERATUSSIN AC 100-10 MG/5ML SYRP 5ml po q6hr PRN Cough CHERATUSSIN AC 100-10 MG/5ML SYRP 825918 GUAIFENESIN-CODEINE Inacti ve TRIAMCINOLONE ACETONIDE 0.1 % CREA apply three times daily prn r beatrice TRIAMCINOLONE ACETONIDE 0.1 % CREA 9543863 TRIAMCINOLONE ACETONIDE Inactive AZITHROMYCIN 250 MG TABS 2 po qd x 1 day, then 1 po qd x 4 days AZITHROMYCIN 250 MG TABS 1974941 AZITHROMYCIN Inactiv e MEDROL (REYNA) 4 MG TABS 6 pills x 1 day, then 5 pill s x 1 day then 4 pills x 1 day, then 3 pills x 1 day, then 2 pills x 1 day, then 1 pill x 1 day, then stop MEDROL (REYNA) 4 MG TABS 698291 METHYLPREDNISOLONE Inactive AMOXICILLIN 500 MG CAP 1 tab by mouth 3 times daily x 10 days 20 13/03/08 AMOXICILLIN 500 MG CAP 565226 AMOXICILLIN Inactive AMOXICILLIN 500 MG CAP 1 tab by mouth 3 times daily x 10 days 20 14/04/28 AMOXICILLIN 500 MG CAP 976707 AMOXICILLIN Inactive ZITHROMAX 250 MG TAB 2 po today, then 1 po q days 2-5 ZITHROMAX 250 MG TAB 1182871 AZITHROMYCIN Inactive AUGMENTIN 875-125 MG TAB 1 po BID x 10 days AUGMENTIN 875- 125 MG TAB 883929 AMOXICILLIN-POT CLAVULANATE Inactive ZITHROMAX Z-REYNA 250 MG TABS 2 today, then 1 daily for 4 days 201 08/07/20 ZITHROMAX Z-REYNA 250 MG TABS 0946499 AZITHROMYCIN Inac tive ZITHROMAX 250 MG TAB 2 po today, then 1 po q days 2-5 ZITHROMAX 250 MG TAB 6187949 AZITHROMYCIN Inactive ZITHROMAX Z-REYNA 250 MG TABS 2 today, then 1 daily for 4 days 201 08/30/03 ZITHROMAX Z-REYNA 250 MG TABS 4843287 AZITHROMYCIN Inac tive CEFDINIR 300 MG CAPS 1 po BID x 10 days C EFDINIR 300 MG CAPS 538090 CEFDINIR Inactive ZITHROMAX 250 MG TAB 2 po today, then 1 po q days 2-5 ZITHROMAX 250 MG TAB 4943062 AZITHROMYCIN Inactive LEVAQUIN 500 MG TAB 1 tablet by mouth daily LEVAQUIN 500 MG TAB 635020 LEVOFLOXACIN Inactive SINGULAIR 10 MG TABS 1 po qday for allergies 2 SINGULAIR 10 MG TABS 20010504 MONTELUKAST SODIUM Inactive AMOXICILLIN 500 MG CAPS 2 po BID x 10 days AMOXICILLIN 500 MG CAPS 774603 AMOXICILLIN Inactive PREDNISONE 20 MG TAB 2 tabs daily for 3 days, 1 t ab daily for 3 days, 1/2 tab daily for 2 days PREDNISONE 20 MG TAB 020702 PREDNISON E Inactive ZITHROMAX Z-REYNA 250 MG TABS 2 today, then 1 daily for 4 days 201 09/29/14 ZITHROMAX Z-REYNA 250 MG TABS 6871667 AZITHROMYCIN Inac tive Vital Signs Date Name [...] Measured Encounters Code Encounter Date Provider Facility CPT-38694 Level 3 Est. Patient 13:42:38 CDT [facility] CPT-77251 Level 3 Est. Patient 13:23:51 CDT [facility] CPT-91102 Level 3 Est. Patient 14:22:19 ELECTRIFICATION ADVISER [facility] CPT-55450 Level 3 Est. Patient 10:11:46 CDT Carlton rich MD [facility] CPT-94489 Level 3 Est. Patient 17:29:43 CDT [facility] CPT-65600 Level 3 Est. Patient 11:58:06 CDT Elise Cesar chelly BILL [facility]-49889 Level 4 Est. Patient 14:36:51 CDT Carlton rich MD [facility]-30329 Level 3 Est. Patient 18:16:00 ELECTRIFICATION ADVISER Blaine Freeman [facility]-10961 Level 3 Est. Patient 09:45:49 ELECTRIFICATION ADVISER Carlton rich MD [facility]-71337 Level 3 Est. Patient 13:19:20 CDT Carlton rich MD [facility]-49230 Level 3 Est. Patient 13:06:43 CDT Ridge tam DO [facility] CPT-01272 Level 3 Est. Patient 10:03:07 CDT Perez Mora MD [facility]-21497 Level 3 Est. Patient 19:50:35 ELECTRIFICATION ADVISER Carlton rich MD [facility]-58789 Level 4 Est. Patient 18:05:01 ELECTRIFICATION ADVISER Carlton rich MD [facility]-78618 Level 3 Est. Patient 10:45:55 ELECTRIFICATION ADVISER Hugo Restrepo MD [facility]-71586 Level 3 Est. Patient 14:12:49 CDT Griffin lincoln [facility]-88676 Level 3 Est. Patient 17:37:24 CDT Carlton rich MD [facility]-74973 Level 3 Est. Patient 16:51:54 CDT Carlton rich MD [facility]-01990 Level 3 Est. Patient 12:18:11 CDT Hugo Restrepo MD [facility]-55394 Level 3 Est. Patient 11:30:25 CDT Marcy crisostomo MD PhD [facility] CPT-80906 Level 3 Est. Patient 12:00:47 ELECTRIFICATION ADVISER Carlton rich MD [facility] CPT-46973 Level 3 Est. Patient 16:31:06 ELECTRIFICATION ADVISER Carlton rich MD [facility] CPT-11946 Level 3 Est. Patient 16:23:24 ELECTRIFICATION ADVISER Ridge tam [facility] CPT-04635 Level 3 Est. Patient 12:34:12 CDT Carlton rich MD [facility] CPT-09812 Level 2 Est. Patient 15:43:33 CDT Robi armstrong MD [facility] CPT-32447 Level 4 Est. Patient 14:04:44 CDT Carlton rich MD [facility] CPT-56796 Level 3 Est. Patient 05:47:59 CDT Ridge tam [facility] CPT-78627 Level 3 Est. Patient 13:12:53 ELECTRIFICATION ADVISER Carlton rich MD [facility] CPT-62558 Level 3 Est. Patient 14:26:53 CDT Hugo Restrepo MD [facility] Procedures Code Procedure Name Date Entry Date Standard Desc ription CPT-J0696 Rocephin 1gm Inj Solr 14:32:13 CDT CPT-J1020 Depo Medrol 60 mg (Methyl Prednisolone A cetate) 14:32:13 CDT CPT-J1100 Decadron 6mg (Dexamethasone) 14:32:13 CDT 2 CPT-94848 Hip bilat min 2V w AP pelvis 13:16:20 CDT 2 CPT-15756 Pelvis only 13:07:33 CDT CPT-81371 Spec Collection and Handling Fee 11:25:12 C DT CPT-28553 Fluzone Quadrivalent Intramuscular Suspe nsion 0.5 ML 14:31:55 CDT CPT-50040 Abx/Therapy Injection 13:28:47 ELECTRIFICATION ADVISER CPT-J2930 Solu Medrol 125 mg (Methyl Prednisolone Sodium Succinate) 12:00:47 ELECTRIFICATION ADVISER CPT-46226 Venipuncture Draw Fee 11:33:31 CDT CPT-02592 EKG Trac and Interp 11:21:09 CDT CPT-28105 Chest 2V Frontal and Lat 11:21:09 CDT 12/15 CPT-66882 Venipuncture Draw Fee 08:02:34 CDT CPT-59792 Chest 2V Frontal and Lat 05:47:59 CDT 06/05
--- OUTSIDE RECORDS SUMMARY | 2019-10-08 08:12 | XMS REPORT | Clinical Summary ---
Author Author Caitlin, Juliana Martinez Organization [facility] Address Unknown Phone Unavailable Allergies, Adverse Reactions, Alerts Allergy Name Reaction Description Start Date Severity Status Pr ovider No Known Allergies Adelaida Amanda LPN Conditions or Problems Problem Name Problem Code [...] Generic Name NDC Status Provider Patient Instruction MONTELUKAST SODIUM 10 MG ORAL TABS 1 po daily for Allergy 6 MONTELUKAST SODIUM [id number] Active ALFREDO Holly Act nael TUSSIONEX PENNKINETIC ER 10-8 MG/5ML LQCR 5 ml twice a day a s needed for cough HYDROCOD POLST-CHLORPHEN POLST 18265007629 Active Hugo Restrepo MD Active TUSSIONEX PENNKINETIC ER 10-8 MG/5ML LQCR 5ml po q12hr PRN Cough HYDROCOD POLST-CHLORPHEN POLST 47688390778 No Longer Active Huog Restrepo MD Active GABAPENTIN 100 MG CAPS 1 po BID for fibromyalgia GABAPENTIN 68087213742 Active Elise Whitmore APRN Active LYRICA 100 MG CAPS Take 1 tab po BID for fibromyalgia PREGABALIN 36684552726 No Longer Active Elise Whitmore APRN Acti ve PROAIR HFA 108 (90 BASE) MCG/ACT AERS 2 puffs four times a d ay as needed ALBUTEROL SULFATE 41482806416 Active Diya De Guzman APR N Active MUCINEX DM MAXIMUM STRENGTH 60-1200 MG [id number] 1 tab po q am 2016 DEXTROMETHORPHAN-GUAIFENESIN 09651008218 Active Diya De Guzman CONTAINER PACKER 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 PREDNISONE 20 MG TAB 2 tabs daily for 3 days, 1 t ab daily for 3 days, 1/2 tab daily for 2 days PREDNISONE 63893719678 No Longer Active Diya De Guzman CONTAINER PACKER 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 TUSSIONEX PENNKINETIC ER 10-8 MG/5ML ORAL LQCR 5 mL PO q 12 hrs PRN cough HYDROCOD POLST-CHLORPHEN POLST 40918738686 No Longer Active Diya Guerrerol CONTAINER PACKER 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 FLUTICASONE PROPIONATE 50 MCG/ACT SUSP 2 sprays each n ostril daily until bottle is empty FLUTICASONE PROPIONATE 40875667585 No Longer Ac tive Venullshakira Guerrerol CONTAINER PACKER 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 ASMANEX 60 METERED DOSES 220 MCG/INH AEPB 1 puff bid with ri nse after MOMETASONE FUROATE 58515775337 No Longer Active Diya meneses CONTAINER PACKER 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 ZITHROMAX Z-REYNA 250 MG TABS 2 today, then 1 daily for 4 days 201 09/29/14 AZITHROMYCIN 44462279155 No Longer Active Elise Whitmore APRN Active TUSSIONEX PENNKINETIC ER 10-8 MG/5ML LQCR 5ml po q12hr PRN Cough HYDROCOD POLST-CHLORPHEN POLST 28005938014 No Longer Active Elise Whitmore APRN Active MUCINEX D 60-600 MG [id number] 1 tab po q am PSEUDOEPHEDRINE-GUAIFENESIN 21543154680 Active Jillina Frazell CONTAINER PACKER 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 PREDNISONE 20 MG TAB 2 tabs daily for 3 days, 1 t ab daily for 3 days, 1/2 tab daily for 2 days PREDNISONE 34816856721 No Longer Active Jillina Frazell CONTAINER PACKER 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 AMOXICILLIN 500 MG CAPS 2 po BID x 10 days AMOX ICILLIN 79674196006 No Longer Active Jillina Frazell CONTAINER PACKER 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 SINGULAIR 10 MG TABS 1 po qday for allergies 2 MONTELUKAST SODIUM 80294031796 No Longer Active Carlton Hu MD Acti ve LEVAQUIN 500 MG TAB 1 tablet by mouth daily LEV OFLOXACIN 75138748435 No Longer Active Carlton Hu MD Active FLUTICASONE PROPIONATE 50 MCG/ACT SUSP 2 sprays each n ostril daily for 2 weeks, then 1 spray each nostril daily. FLUTICASONE PRO PIONATE 95754193117 Active Elise Whitmore APRN Active ZITHROMAX 250 MG TAB 2 po today, then 1 po q days 2-5 AZITHROMYCIN 56502384429 No Longer Active Elise Whitmore APRN Acti ve XANAX 0.5 MG TABS one tablet by mouth daily prn anxiety ALPRAZOLAM 61382566857 Active Elise Whitmore APRN Active CYMBALTA 30 MG CPEP 1 cap by mouth daily for depression DULOXETINE HCL 76848319822 Active Carlton Hu MD Active CEFDINIR 300 MG CAPS 1 po BID x 10 days CEFDINI R 23406689185 No Longer Active Carlton Hu MD Active ZOCOR 40 MG TAB 1 tab by mouth daily SIMVASTATI N 36665412462 No Longer Active Carlton Hu MD Active CYCLOBENZAPRINE HCL 10 MG TABS 1 tablet by mouth BID prn had cherelle n CYCLOBENZAPRINE HCL 50710592315 No Longer Active Carlton Hu MD Active LEVOFLOXACIN 500 MG ORAL TABS 1 tab PO daily x 10 days LEVOFLOXACIN 73076316224 No Longer Active Carlton Hu MD Acti ve PREDNISONE 20 MG ORAL TABS 3 tab PO qd x 2d, 2 tab PO qd x 2d, 1 tab PO qd x 2d, 1/2 tab PO qd x 2d PREDNISONE 60081538311 No Longer Active Carlton Hu MD Active FLUTICASONE PROPIONATE 50 MCG/ACT SUSP 1 to 2 sprays each no stril daily FLUTICASONE PROPIONATE 24298470591 No Longer Active T jaz HERNANDEZ Active CHERATUSSIN AC 100-10 MG/5ML SYRP 1 tsp by mouth every 4 hours as needed for cough GUAIFENESIN-CODEINE 05068534462 No Longer Activ e Blaine HERNANDEZ Active PROMETHAZINE-CODEINE 6.25-10 MG/5ML SYRP 1 tsp by mout h every 6 hours if needed for cough PROMETHAZINE-CODEINE 45433547867 No Long er Active Blaine HERNANDEZ Active CHERATUSSIN AC 100-10 MG/5ML SYRP 1 tsp by mouth every 4 hours as needed for cough GUAIFENESIN-CODEINE 21386382754 No Longer Activ e Blaine HERNANDEZ Active ZITHROMAX Z-REYNA 250 MG TABS 2 today, then 1 daily for 4 days 201 08/30/03 AZITHROMYCIN 24889046564 No Longer Active Columba Raida Act nael ZITHROMAX 250 MG TAB 2 po today, then 1 po q days 2-5 AZITHROMYCIN 59835427092 No Longer Active Carlton Hu MD Acti ve ZITHROMAX Z-REYNA 250 MG TABS 2 today, then 1 daily for 4 days 201 08/07/20 AZITHROMYCIN 63943669259 No Longer Active Columba Raida Act nael AUGMENTIN 875-125 MG TAB 1 po BID x 10 days AMOXICILLIN- POT CLAVULANATE 57068372559 No Longer Active Diya Sernabrayan RICEN Active ZITHROMAX 250 MG TAB 2 po today, then 1 po q days 2-5 AZITHROMYCIN 79047384121 No Longer Active Carlton Hu MD Acti ve TRAMADOL HCL 50 MG TABS 1 po tid with ES Tylenol TRAMADOL HCL 30424982237 Active Carlton Hu MD Active PREMARIN 0.625 MG TABS TAKE 1 TAB BY MOUTH DAILY 07/25 ESTROGENS CONJUGATED 72465000228 No Longer Active Ridge Bess DO Active CYMBALTA 30 MG CPEP 1 cap by mouth daily DULOXE SNEHA HCL 64457815112 No Longer Active Ridge Bess DO Active AMOXICILLIN 500 MG CAP 1 tab by mouth 3 times daily x 10 days 20 14/04/28 AMOXICILLIN 53834151585 No Longer Active Carlton Hu MD Active AMOXICILLIN 500 MG CAP 1 tab by mouth 3 times daily x 10 days 20 13/03/08 AMOXICILLIN 65308820150 No Longer Active Carlton Hu MD Active PROMETHAZINE-CODEINE 6.25-10 MG/5ML SYRP 1 tsp by mouth ever y 8 hours prn cough PROMETHAZINE-CODEINE 57822495309 No Longer Active Robert Hu MD Active MEDROL (REYNA) 4 MG TABS 6 pills x 1 day, then 5 pill s x 1 day then 4 pills x 1 day, then 3 pills x 1 day, then 2 pills x 1 day, then 1 pill x 1 day, then stop METHYLPREDNISOLONE 24067160784 No Longer Active Parris Mora MD Active AZITHROMYCIN 250 MG TABS 2 po qd x 1 day, then 1 po qd x 4 days AZITHROMYCIN 16119851683 No Longer Active Perez Mora MD Active SYMBICORT 160-4.5 MCG/ACT AERO 2 puffs bid with rinse after 2011 BUDESONIDE-FORMOTEROL FUMARATE 31473675776 No Longer Active Perez Mora MD Active LYRICA 75 MG CAPS TAKE 1 CAPSULE BY MOUTH TWICE DAILY 2013 PREGABALIN 74010428837 No Longer Active Carlton Hu MD Active TOPAMAX 25 MG TABS 1 qHS x 1 week, then 1 BID x 1 week, then 1 qAM and 2 qHS x 1 week, then 2 BID (migraine prevention) TOPIRAMAT E 11297133143 No Longer Active Jerica AGUILARA Active TOPAMAX 50 MG TABS take 1 tab po BID for migraines. 12/07/10 TOPIRAMATE 59822056580 No Longer Active Jerica Osei RMA Ac tive TOPAMAX 100 MG TABS Take 1 tablet po bid TOPIRAMATE 4999 3759399 Active Elise Whitmore APRN Active TRIAMCINOLONE ACETONIDE 0.1 % CREA apply three times daily prn r beatrice TRIAMCINOLONE ACETONIDE 99368766639 No Longer Active Carlton Hu MD Active PAXIL 40 MG TAB take 1 tab po qday for depression PAROXETINE HCL 76306914691 Active Elise Whitmore APRN Active CHERATUSSIN AC 100-10 MG/5ML SYRP 5ml po q6hr PRN Cough GUAIFENESIN-CODEINE 02611901896 No Longer Active Carlton Hu MD Active MEDROL (REYNA) 4 MG TABS 6 tabs on day 1, 5 tabs on d ay 2, 4 tabs on day 3, 3 tabs on day 4, 2 tabs on day 5, 1 tab on day 6 METHYLPREDNISOLONE 61872406540 No Longer Active Perez Mora MD Active AZITHROMYCIN 250 MG TABS 2 po qd x 1 day, then 1 po qd x 4 days AZITHROMYCIN 50768836665 No Longer Active Perez Mora MD Active PROPRANOLOL HCL 60 MG TABS 1 PO Q D PROPRANOL OL HCL 12801675489 No Longer Active Perez Mora MD Active CHERATUSSIN AC 100-10 MG/5ML SYRP take one tsp po Q 6hours prn c ough GUAIFENESIN-CODEINE 91619018656 No Longer Active Perez Means Active AUGMENTIN 875-125 MG TAB 1 tab by mouth twice daily with food 20 12/03/31 AMOXICILLIN-POT CLAVULANATE 73625387193 No Longer Active Chanel Mora MD Active CHERATUSSIN AC 100-10 MG/5ML SYRP 1 tsp by mouth every 4 hours as needed for cough GUAIFENESIN-CODEINE 54169197949 No Longer Activ e Hugo Restrepo MD Active ACETAMINOPHEN-CODEINE #3 300-30 MG TABS 1 PO Q 4-6 HRS PRN PAIN ACETAMINOPHEN-CODEINE 37775090785 No Longer Active Hugo Restrepo MD Active LEVAQUIN 500 MG TABS take one po QD LEVOFLOXACI N 84369056727 No Longer Active Griffin HERNANDEZ Active PREDNISONE 20 MG TAB Take 3 tabs daily for 3 days , 2 tabs daily for 3 days, 1 tab daily for 3 days, 1/2 tab daily for 3 days P REDNISONE 50268452681 No Longer Active Carlton Hu MD Active AVELOX 400 MG TABS 1 tab by mouth daily MOXIFLO XACIN HCL 61657847505 No Longer Active Carlton Hu MD Active CHERATUSSIN AC 100-10 MG/5ML SYRP 1 tsp by mouth every 4 hours as needed for cough GUAIFENESIN-CODEINE 89616359964 No Longer Activ e Hugo Restrepo MD Active AVELOX 400 MG TABS 1 tab by mouth daily MOXIFLO XACIN HCL 06513603529 No Longer Active Marcy De La Rosa MD PhD Active TERBINAFINE HCL 250 MG TABS 1 qDay TERBINAF INE HCL 42690700638 No Longer Active Marcy De La Rosa MD PhD Active CHERATUSSIN AC 100-10 MG/5ML SYRP 1 tsp by mouth every 4 hours as needed for cough GUAIFENESIN-CODEINE 98008087341 No Longer Activ e Marcy De La Rosa MD PhD Active AVELOX 400 MG TABS 1 tab by mouth daily MOXIFLO XACIN HCL 73585279807 No Longer Active Marcy De La Rosa MD PhD Active HYDROCODONE-ACETAMINOPHEN 5-325 MG TABS 1 po q 6hr PRN cough 201 05/09/16 HYDROCODONE-ACETAMINOPHEN 08435952139 No Longer Active Marcy De La Rosa MD PhD Active PREDNISONE 20 MG TAB 2 tabs daily for 3 days, 1 t ab daily for 3 days, 1/2 tab daily for 2 days PREDNISONE 90127222104 No Longer Active Carlton Hu MD Active CEFDINIR 300 MG CAPS by mouth twice a day CEFDI ODILIA 02679347134 No Longer Active Carlton Hu MD Active HYDROCHLOROTHIAZIDE 25 MG TABS 1 TAB PO DAILY H YDROCHLOROTHIAZIDE 23432704724 Active Carlton Hu MD Active ACETAMINOPHEN-CODEINE #3 300-30 MG TABS 1 tablet po q 4-6hrs prn pain ACETAMINOPHEN-CODEINE 62794279423 No Longer Active Ridge Bess DO Active ZITHROMAX 250 MG TAB 2 po today, then 1 po q days 2-5 AZITHROMYCIN 47907411944 No Longer Active Carlton Hu MD Acti ve CHERATUSSIN AC 100-10 MG/5ML SYRP take 1 tsp po q4-6 hours prn c ough GUAIFENESIN-CODEINE 35634339396 No Longer Active Carlton Hu MD Active ACETAMINOPHEN-CODEINE #3 300-30 MG TABS 1 PO Q 4-6 HR PRN PAIN 2 ACETAMINOPHEN-CODEINE 59535820822 No Longer Active Carlton rich MD Active LORTAB 7.5-500 MG/15ML ELIX 7.5 ml po q 4 hour prn cough HYDROCODONE-ACETAMINOPHEN 88714480514 No Longer Active Carlton Hu MD Active PREDNISONE 20 MG TAB 1 po bid 3 days, then 1 po q day 3 days 201 05/03/07 PREDNISONE 06000564461 No Longer Active Carlton Hu MD Active ELMIRON 100 MG CAPS 2 tablets in the am and 1 tablet at hs PENTOSAN POLYSULFATE SODIUM 13567680190 Active Carlton Hu MD Ac tive CEFDINIR 300 MG CAPS by mouth twice a day CEFDI ODILIA 91549333739 No Longer Active Carlton Hu MD Active CEFDINIR 300 MG CAPS by mouth twice a day CEFDI ODILIA 06202763915 No Longer Active Carlton Hu MD Active CEFDINIR 300 MG CAPS by mouth twice a day CEFDI ODILIA 99891609784 No Longer Active Carlton Hu MD Active TESSALON PERLES 100 MG CAP 1 tablet by mouth 3 times daily a s needed for cough BENZONATATE 47553982830 No Longer Active Carlton bustamante MD Active CEFDINIR 300 MG CAPS by mouth twice a day CEFDI ODILIA 68912674752 No Longer Active Carlton Hu MD Active ZITHROMAX Z-REYNA 250 MG TABS 2 today, then 1 daily for 4 days 201 04/09/17 AZITHROMYCIN 30636050257 No Longer Active Hugo Restrepo MD Active AMOXICILLIN 500 MG CAP 1 tab by mouth 3 times daily x 10 days 20 13/03/08 AMOXICILLIN 500 MG CAP 518348 AMOXICILLIN Inactive AMOXICILLIN 500 MG CAP 1 tab by mouth 3 times daily x 10 days 20 14/04/28 AMOXICILLIN 500 MG CAP 548269 AMOXICILLIN Inactive AMOXICILLIN 500 MG CAPS 2 po BID x 10 days AMOXICILLIN 500 MG CAPS 209033 AMOXICILLIN Inactive CHERATUSSIN AC 100-10 MG/5ML SYRP 5ml po q6hr PRN Cough CHERATUSSIN AC 100-10 MG/5ML SYRP 749235 GUAIFENESIN-CODEINE Inacti ve CHERATUSSIN AC 100-10 MG/5ML SYRP take 1 tsp po q4-6 hours prn c ough CHERATUSSIN AC 100-10 MG/5ML SYRP 216202 GUAIFENESIN-CO DEINE Inactive CHERATUSSIN AC 100-10 MG/5ML SYRP 1 tsp by mouth every 4 hours as needed for cough CHERATUSSIN AC 100-10 MG/5ML SYRP 045140 GUAIFENESIN-CODEINE Inactive CHERATUSSIN AC 100-10 MG/5ML SYRP 1 tsp by mouth every 4 hours as needed for cough CHERATUSSIN AC 100-10 MG/5ML SYRP 767750 GUAIFENESIN-CODEINE Inactive CHERATUSSIN AC 100-10 MG/5ML SYRP 1 tsp by mouth every 4 hours as needed for cough CHERATUSSIN AC 100-10 MG/5ML SYRP 509870 GUAIFENESIN-CODEINE Inactive CHERATUSSIN AC 100-10 MG/5ML SYRP take one tsp po Q 6hours prn c ough CHERATUSSIN AC 100-10 MG/5ML SYRP 584036 GUAIFENESIN-CO DEINE Inactive CHERATUSSIN AC 100-10 MG/5ML SYRP 1 tsp by mouth every 4 hours as needed for cough CHERATUSSIN AC 100-10 MG/5ML SYRP 202576 GUAIFENESIN-CODEINE Inactive CHERATUSSIN AC 100-10 MG/5ML SYRP 1 tsp by mouth every 4 hours as needed for cough CHERATUSSIN AC 100-10 MG/5ML SYRP 184104 GUAIFENESIN-CODEINE Inactive CYCLOBENZAPRINE HCL 10 MG TABS 1 tablet by mouth BID prn had cherelle n CYCLOBENZAPRINE HCL 10 MG TABS 830176 CYCLOBENZAPRINE H CL Inactive PREDNISONE 20 MG ORAL TABS 3 tab PO qd x 2d, 2 tab PO qd x 2d, 1 tab PO qd x 2d, 1/2 tab PO qd x 2d PREDNISONE 20 MG ORAL TABS 977352 PREDNISONE Inactive PREDNISONE 20 MG TAB 1 po bid 3 days, then 1 po q day 3 days 201 05/03/07 PREDNISONE 20 MG TAB 853363 PREDNISONE Inactive PREDNISONE 20 MG TAB Take 3 tabs daily for 3 days , 2 tabs daily for 3 days, 1 tab daily for 3 days, 1/2 tab daily for 3 days PREDNISONE 20 MG TAB 696737 PREDNISONE Inactive PREDNISONE 20 MG TAB 2 tabs daily for 3 days, 1 t ab daily for 3 days, 1/2 tab daily for 2 days PREDNISONE 20 MG TAB 851493 PREDNISON E Inactive PREDNISONE 20 MG TAB 2 tabs daily for 3 days, 1 t ab daily for 3 days, 1/2 tab daily for 2 days PREDNISONE 20 MG TAB 926182 PREDNISON E Inactive PREDNISONE 20 MG TAB 2 tabs daily for 3 days, 1 t ab daily for 3 days, 1/2 tab daily for 2 days PREDNISONE 20 MG TAB 588697 PREDNISON E Inactive PREMARIN 0.625 MG TABS TAKE 1 TAB BY MOUTH DAILY 07/25 PREMARIN 0.625 MG TABS ESTROGENS CONJUGATED Inactive PROMETHAZINE-CODEINE 6.25-10 MG/5ML SYRP 1 tsp by mouth ever y 8 hours prn cough PROMETHAZINE-CODEINE 6.25-10 MG/5ML SYRP 225015 PROMETHAZINE-CODEINE Inactive PROMETHAZINE-CODEINE 6.25-10 MG/5ML SYRP 1 tsp by mout h every 6 hours if needed for cough PROMETHAZINE-CODEINE 6.25-10 MG/5ML SYRP 568177 PROMETHAZINE-CODEINE Inactive PROPRANOLOL HCL 60 MG TABS 1 PO Q D P ROPRANOLOL HCL 60 MG TABS 541597 PROPRANOLOL HCL Inactive TRIAMCINOLONE ACETONIDE 0.1 % CREA apply three times daily prn r beatrice TRIAMCINOLONE ACETONIDE 0.1 % CREA 2453402 TRIAMCINOLONE ACETONIDE Inactive ZOCOR 40 MG TAB 1 tab by mouth daily ZOCOR 40 M G TAB 066706 SIMVASTATIN Inactive TESSALON PERLES 100 MG CAP 1 tablet by mouth 3 times daily a s needed for cough TESSALON PERLES 100 MG CAP 786413 BENZONATATE I nactive TERBINAFINE HCL 250 MG TABS 1 qDay TERBINAFINE HCL 250 MG TABS 313879 TERBINAFINE HCL Inactive ACETAMINOPHEN-CODEINE #3 300-30 MG [...] food 20 12/03/31 AUGMENTIN 875-125 MG TAB 432481 AMOXICILLIN-POT CLAVULA EFE Inactive AUGMENTIN 875-125 MG TAB 1 po BID x 10 days AUGMENTIN 875- 125 MG TAB 861860 AMOXICILLIN-POT CLAVULANATE Inactive LEVAQUIN 500 MG TAB 1 tablet by mouth daily LEVAQUIN 500 MG TAB 181445 LEVOFLOXACIN Inactive LEVAQUIN 500 MG TABS take one po QD LEVAQUIN 50 0 MG TABS 650012 LEVOFLOXACIN Inactive TOPAMAX 25 MG TABS 1 qHS x 1 week, then 1 BID x 1 week, then 1 qAM and 2 qHS x 1 week, then 2 BID (migraine prevention) TOPAMAX 2 5 MG TABS 19971105 TOPIRAMATE Inactive LEVOFLOXACIN 500 MG ORAL TABS 1 tab PO daily x 10 days LEVOFLOXACIN 500 MG ORAL TABS 19971102 LEVOFLOXACIN Inactive ZITHROMAX 250 MG TAB 2 po today, then 1 po q days 2-5 ZITHROMAX 250 MG TAB 0046216 AZITHROMYCIN Inactive ZITHROMAX 250 MG TAB 2 po today, then 1 po q days 2-5 ZITHROMAX 250 MG TAB 0609236 AZITHROMYCIN Inactive ZITHROMAX 250 MG TAB 2 po today, then 1 po q days 2-5 ZITHROMAX 250 MG TAB 0053740 AZITHROMYCIN Inactive ZITHROMAX 250 MG TAB 2 po today, then 1 po q days 2-5 ZITHROMAX 250 MG TAB 1030893 AZITHROMYCIN Inactive AZITHROMYCIN 250 MG TABS 2 po qd x 1 day, then 1 po qd x 4 days AZITHROMYCIN 250 MG TABS 2018238 AZITHROMYCIN Inactiv e AZITHROMYCIN 250 MG TABS 2 po qd x 1 day, then 1 po qd x 4 days AZITHROMYCIN 250 MG TABS 0631595 AZITHROMYCIN Inactiv e CEFDINIR 300 MG CAPS [...] mouth daily A VELOX 400 MG TABS 079290 MOXIFLOXACIN HCL Inactive AVELOX 400 MG TABS 1 tab by mouth daily A VELOX 400 MG TABS 738895 MOXIFLOXACIN HCL Inactive AVELOX 400 MG TABS 1 tab by mouth daily A VELOX 400 MG TABS 107611 MOXIFLOXACIN HCL Inactive ZITHROMAX Z-REYNA 250 MG TABS 2 today, then 1 daily for 4 days 201 09/29/14 ZITHROMAX Z-REYNA 250 MG TABS 2721140 AZITHROMYCIN Inac tive ZITHROMAX Z-REYNA 250 MG TABS 2 today, then 1 daily for 4 days 201 04/09/17 ZITHROMAX Z-REYNA 250 MG TABS 5525108 AZITHROMYCIN Inac tive ZITHROMAX Z-REYNA 250 MG TABS 2 today, then 1 daily for 4 days 201 08/30/03 ZITHROMAX Z-REYNA 250 MG TABS 1273606 AZITHROMYCIN Inac tive ZITHROMAX Z-REYNA 250 MG TABS 2 today, then 1 daily for 4 days 201 08/07/20 ZITHROMAX Z-REYNA 250 MG TABS 3991998 AZITHROMYCIN Inac tive HYDROCODONE-ACETAMINOPHEN 5-325 MG TABS 1 po q 6hr PRN cough 201 05/09/16 HYDROCODONE-ACETAMINOPHEN 5-325 MG TABS 866384 HYDROCODONE-ACETAMINOPHEN Inactive TOPAMAX 50 MG TABS take 1 tab po BID for migraines. 20 12/07/10 TOPAMAX 50 MG TABS 684592 TOPIRAMATE Inactive LORTAB 7.5-500 MG/15ML ELIX 7.5 ml po q 4 hour prn cough LORTAB 7.5-500 MG/15ML ELIX HYDROCODONE-ACETAMINOPHEN Inacti ve CYMBALTA 30 MG CPEP 1 cap by mouth daily CYMBALTA 30 MG CPEP 395941 DULOXETINE HCL Inactive ASMANEX 60 METERED DOSES 220 MCG/INH AEPB 1 puff bid with ri nse after ASMANEX 60 METERED DOSES 220 MCG/INH AEPB MOMETASONE FUROATE Inactive LYRICA 75 MG CAPS TAKE 1 CAPSULE BY MOUTH TWICE DAILY LYRICA 75 MG CAPS PREGABALIN Inactive LYRICA 100 MG CAPS Take 1 tab po BID for fibromyalgia LYRICA 100 MG CAPS PREGABALIN Inactive FLUTICASONE PROPIONATE 50 MCG/ACT SUSP 2 sprays each n ostril daily until bottle is empty FLUTICASONE PROPIONATE 50 MCG/ACT SUSP 17 05750 FLUTICASONE PROPIONATE Inactive FLUTICASONE PROPIONATE 50 MCG/ACT SUSP 1 to 2 sprays each no stril daily FLUTICASONE PROPIONATE 50 MCG/ACT SUSP 6278091 FLUTICASONE PROPIONATE Inactive SYMBICORT 160-4.5 MCG/ACT AERO 2 puffs bid with rinse after 2011 SYMBICORT 160-4.5 MCG/ACT AERO BUDESONIDE-FORMOT SÁNCHEZ FUMARATE Inactive MEDROL (REYNA) 4 MG TABS 6 pills x 1 day, then 5 pill s x 1 day then 4 pills x 1 day, then 3 pills x 1 day, then 2 pills x 1 day, then 1 pill x 1 day, then stop MEDROL (REYNA) 4 MG TABS 039515 METHYLPREDNISOLONE Inactive MEDROL (REYNA) 4 MG TABS 6 tabs on day 1, 5 tabs on d ay 2, 4 tabs on day 3, 3 tabs on day 4, 2 tabs on day 5, 1 tab on day 6 MEDROL (REYNA) 4 MG TABS 070936 METHYLPREDNISOLONE Inactive TUSSIONEX PENNKINETIC ER 10-8 MG/5ML ORAL [...] Range Description blood pressure, diastolic - 8462-4 81 mm[Hg] BP srinivasan blood pressure, systolic - 8480-6 109 mm[Hg] BP sys pulse rate E&M - 8867-4 116 /min H eart rate temperature E&M 97.6 [degF] Body temp erature weight E&M - 3141-9 143.5 [lb_av] Weigh t Measured blood pressure, diastolic - 8462-4 77 mm[Hg] [...] - 3141-9 139 [lb_av] Weigh t Measured Diagnostic Results Date Name Value Unit Range Description Lab Report: Rapid Strep - Lab Microbial identification kit, rapid strep method Negative Negative Encounters Code Encounter Date Provider Facility CPT-92909 Level 3 Est. Patient 12:17:50 CDT Hugo Restrepo MD [facility] CPT-45424 Level 3 Est. Patient 13:42:38 CDT Italo [facility] CPT-73231 Level 3 Est. Patient 13:23:51 CDT Diya cobian [facility] CPT-10268 Level 3 Est. Patient 14:22:19 WOODWORKING MACHINE OFFBEARER Diya cobian [facility] CPT-11431 Level 3 Est. Patient 10:11:46 CDT Carlton rich MD [facility] CPT-38746 Level 3 Est. Patient 17:29:43 CDT Italo [facility] CPT-54522 Level 3 Est. Patient 11:58:06 CDT Italo RICEN [facility] CPT-94527 Level 4 Est. Patient 14:36:51 CDT Carlton rich MD -[id number] Level 3 Est. Patient 18:16:00 WOODWORKING MACHINE OFFBEARER Blaine Freeman [facility] CPT-56354 Level 3 Est. Patient 09:45:49 WOODWORKING MACHINE OFFBEARER Carlton rich MD [facility]-43795 Level 3 Est. Patient 13:19:20 CDT Carlton rich MD [facility]-51480 Level 3 Est. Patient 13:06:43 CDT Ridge tam DO [facility] CPT-15801 Level 3 Est. Patient 10:03:07 CDT Perez Mora MD [facility] CPT-70682 Level 3 Est. Patient 19:50:35 WOODWORKING MACHINE OFFBEARER Carlton rich MD [facility] CPT-68517 Level 4 Est. Patient 18:05:01 WOODWORKING MACHINE OFFBEARER Carlton rich MD [facility] CPT-60467 Level 3 Est. Patient 10:45:55 WOODWORKING MACHINE OFFBEARER Hugo Restrepo MD [facility] CPT-76881 Level 3 Est. Patient 14:12:49 CDT Griffin lincoln [facility]-47007 Level 3 Est. Patient 17:37:24 CDT Carlton rich MD [facility]-56458 Level 3 Est. Patient 16:51:54 CDT Carlton rich MD [facility]-25573 Level 3 Est. Patient 12:18:11 CDT Hugo Restrepo MD [facility]-22307 Level 3 Est. Patient 11:30:25 CDT Marcy crisostomo MD PhD [facility] CPT-16999 Level 3 Est. Patient 12:00:47 WOODWORKING MACHINE OFFBEARER Carlton rich MD [facility] CPT-01387 Level 3 Est. Patient 16:31:06 WOODWORKING MACHINE OFFBEARER Carlton rich MD [facility] CPT-72001 Level 3 Est. Patient 16:23:24 WOODWORKING MACHINE OFFBEARER Ridge tam [facility] CPT-17750 Level 3 Est. Patient 12:34:12 CDT Carlton rich MD [facility] CPT-16180 Level 2 Est. Patient 15:43:33 CDT Robi armstrong MD [facility] CPT-53008 Level 4 Est. Patient 14:04:44 CDT Carlton rich MD [facility] CPT-74977 Level 3 Est. Patient 05:47:59 CDT Ridge tam [facility] CPT-23380 Level 3 Est. Patient 13:12:53 WOODWORKING MACHINE OFFBEARER Carlton rich MD [facility] CPT-49324 Level 3 Est. Patient 14:26:53 CDT Hugo Restrepo MD [facility] Procedures Code Procedure Name Date Entry Date Standard Desc ription CPT-J0696 Rocephin 1gm Inj Solr 14:32:13 CDT CPT-J1020 Depo Medrol 60 mg (Methyl Prednisolone A cetate) 14:32:13 CDT CPT-J1100 Decadron 6mg (Dexamethasone) 14:32:13 CDT 2 CPT-89213 Hip bilat min 2V w AP pelvis 13:16:20 CDT 2 CPT-62545 Pelvis only 13:07:33 CDT CPT-08996 Spec Collection and Handling Fee 11:25:12 C DT CPT-77235 Fluzone Quadrivalent Intramuscular Suspe nsion 0.5 ML 14:31:55 CDT CPT-16156 Abx/Therapy Injection 13:28:47 [employer] CPT-J2930 Solu Medrol 125 mg (Methyl Prednisolone Sodium Succinate) 12:00:47 [employer] CPT-82992 Venipuncture Draw Fee 11:33:31 CDT CPT-20510 EKG Trac and Interp 11:21:09 CDT CPT-91956 Chest 2V Frontal and Lat 11:21:09 CDT 12/15 CPT-03229 Venipuncture Draw Fee 08:02:34 CDT CPT-03780 Chest 2V Frontal and Lat 05:47:59 CDT 06/05
--- OUTSIDE RECORDS SUMMARY | 2019-10-08 08:12 | XMS REPORT | Clinical Summary ---
Author Author Caitlin, Juliana Martinez Organization [facility] Address Unknown Phone Unavailable Allergies, Adverse Reactions, Alerts Allergy Name Reaction Description Start Date Severity Status Pr ovider No Known Allergies [facility] Conditions or Problems Problem Name Problem Code [...] MILD BRONCHOSPASM 466.0 Resolv ed Marcy De aL Rosa MD PhD Acute bronchitis DYSPNEA 786.05 [...] 4 hours as needed for cough GUAIFENESIN-CODEINE 36033979042 Active Elise gilmore APRN Active ZITHROMAX 250 MG TAB 2 po today, then 1 po q days 2-5 AZITHROMYCIN 40389491900 No Longer Active Carlton Hu MD Acti ve ZITHROMAX Z-REYNA 250 MG TABS 2 today, then 1 daily for 4 days 201 08/07/20 AZITHROMYCIN 20588314836 No Longer Active Columba Raida Act nael FLUTICASONE PROPIONATE 50 MCG/ACT SUSP 1 to 2 sprays each no stril daily FLUTICASONE PROPIONATE 74909850715 Active Jillina Frazel l AUDIT SENIOR ASSOCIATE Active PROMETHAZINE-CODEINE 6.25-10 MG/5ML SYRP 1 tsp by mout h every 6 hours if needed for cough PROMETHAZINE-CODEINE 37300035633 Active Robert Hu MD Active AUGMENTIN 875-125 MG TAB 1 po BID x 10 days AMOXICILLIN- POT CLAVULANATE 04766846039 No Longer Active Diya Guerrerol AUDIT SENIOR ASSOCIATE Active ZITHROMAX 250 MG TAB 2 po today, then 1 po q days 2-5 AZITHROMYCIN 38076988028 No Longer Active Carlton Hu MD Acti ve TRAMADOL HCL 50 MG TABS 1 po tid with ES Tylenol TRAMADOL HCL 83357599056 Active Carlton Hu MD Active PREMARIN 0.625 MG TABS TAKE 1 TAB BY MOUTH DAILY 07/25 ESTROGENS CONJUGATED 27466102188 No Longer Active Ridge Bess DO Active CYMBALTA 30 MG CPEP 1 cap by mouth daily DULOXE SNEHA HCL 99075053688 No Longer Active Ridge Bess DO Active AMOXICILLIN 500 MG CAP 1 tab by mouth 3 times daily x 10 days 20 14/04/28 AMOXICILLIN 00479619229 No Longer Active Carlton Hu MD Active AMOXICILLIN 500 MG CAP 1 tab by mouth 3 times daily x 10 days 20 13/03/08 AMOXICILLIN 13060913405 No Longer Active Carlton Hu MD Active CHERATUSSIN AC 100-10 MG/5ML SYRP 1 tsp by mouth every 4 hours as needed for cough GUAIFENESIN-CODEINE 24008092377 Active Carlton banks MD Active CYCLOBENZAPRINE HCL 10 MG TABS 1 tablet by mouth BID prn had pain 2 CYCLOBENZAPRINE HCL 55474398971 Active Carlton Hu MD A ctive PROMETHAZINE-CODEINE 6.25-10 MG/5ML SYRP 1 tsp by mouth ever y 8 hours prn cough PROMETHAZINE-CODEINE 78822458742 No Longer Active Robert Hu MD Active MEDROL (REYNA) 4 MG TABS 6 pills x 1 day, then 5 pill s x 1 day then 4 pills x 1 day, then 3 pills x 1 day, then 2 pills x 1 day, then 1 pill x 1 day, then stop METHYLPREDNISOLONE 68324908696 No Longer Active Parris Mora MD Active AZITHROMYCIN 250 MG TABS 2 po qd x 1 day, then 1 po qd x 4 days AZITHROMYCIN 81016524137 No Longer Active Perze Mora MD Active SYMBICORT 160-4.5 MCG/ACT AERO 2 puffs bid with rinse after 2011 BUDESONIDE-FORMOTEROL FUMARATE 70141735139 No Longer Active Perez Mora MD Active LYRICA 75 MG CAPS TAKE 1 CAPSULE BY MOUTH TWICE DAILY 2013 PREGABALIN 36306153545 No Longer Active Carlton Hu MD Active LYRICA 100 MG CAPS Take 1 tab po BID for fibromyalgia PREGABALIN 26226949513 Active Carlton Hu MD Active TOPAMAX 25 MG TABS 1 qHS x 1 week, then 1 BID x 1 week, then 1 qAM and 2 qHS x 1 week, then 2 BID (migraine prevention) TOPIRAMAT E 31147819990 No Longer Active Jerica FUENTES Active TOPAMAX 50 MG TABS take 1 tab po BID for migraines. 12/07/10 TOPIRAMATE 75837843568 No Longer Active Jerica FUENTES Ac tive TOPAMAX 100 MG TABS Take 1 tablet po bid TOPIRAMATE 4999 9815470 Active Carlton Hu MD Active TRIAMCINOLONE ACETONIDE 0.1 % CREA apply three times daily prn r beatrice TRIAMCINOLONE ACETONIDE 62110445454 No Longer Active Carlton Hu MD Active PAXIL 40 MG TAB take 1 tab po qday for depression PAROXETINE HCL 60006669202 Active Elise Whitmore AUDIT SENIOR ASSOCIATE Active CHERATUSSIN AC 100-10 MG/5ML SYRP 5ml po q6hr PRN Cough GUAIFENESIN-CODEINE 66348043696 No Longer Active Carlton Hu MD Active MEDROL (REYNA) 4 MG TABS 6 tabs on day 1, 5 tabs on d ay 2, 4 tabs on day 3, 3 tabs on day 4, 2 tabs on day 5, 1 tab on day 6 METHYLPREDNISOLONE 56813687231 No Longer Active Perez Mora MD Active AZITHROMYCIN 250 MG TABS 2 po qd x 1 day, then 1 po qd x 4 days AZITHROMYCIN 47855761762 No Longer Active Perez Mora MD Active PROPRANOLOL HCL 60 MG TABS 1 PO Q D PROPRANOL OL HCL 10739649957 No Longer Active Perez Mora MD Active CHERATUSSIN AC 100-10 MG/5ML SYRP take one tsp po Q 6hours prn c ough GUAIFENESIN-CODEINE 56157733382 No Longer Active Perez Means Active AUGMENTIN 875-125 MG TAB 1 tab by mouth twice daily with food 12/03/31 AMOXICILLIN-POT CLAVULANATE 34996112908 No Longer Active Chanel Mora MD Active CHERATUSSIN AC 100-10 MG/5ML SYRP 1 tsp by mouth every 4 hours as needed for cough GUAIFENESIN-CODEINE 16945768188 No Longer Activ e Hugo Restrepo MD Active ACETAMINOPHEN-CODEINE #3 300-30 MG TABS 1 PO Q 4-6 HRS PRN PAIN ACETAMINOPHEN-CODEINE 07112355549 No Longer Active Hugo Restrepo MD Active LEVAQUIN 500 MG TABS take one po QD LEVOFLOXACI N 60363361499 No Longer Active Griffin HERNANDEZ Active PREDNISONE 20 MG TAB Take 3 tabs daily for 3 days , 2 tabs daily for 3 days, 1 tab daily for 3 days, 1/2 tab daily for 3 days P REDNISONE 93758767191 No Longer Active Carlton Hu MD Active AVELOX 400 MG TABS 1 tab by mouth daily MOXIFLO XACIN HCL 33499959226 No Longer Active Carlton Hu MD Active CHERATUSSIN AC 100-10 MG/5ML SYRP 1 tsp by mouth every 4 hours as needed for cough GUAIFENESIN-CODEINE 08178649684 No Longer Activ e Hugo Restrepo MD Active AVELOX 400 MG TABS 1 tab by mouth daily MOXIFLO XACIN HCL 97682952603 No Longer Active Marcy De La Rosa MD PhD Active TERBINAFINE HCL 250 MG TABS 1 qDay TERBINAF INE HCL 46204075009 No Longer Active Marcy De La Rosa MD PhD Active CHERATUSSIN AC 100-10 MG/5ML SYRP 1 tsp by mouth every 4 hours as needed for cough GUAIFENESIN-CODEINE 07787714336 No Longer Activ e Marcy De La Rosa MD PhD Active AVELOX 400 MG TABS 1 tab by mouth daily MOXIFLO XACIN HCL 90433533101 No Longer Active Marcy De La Rosa MD PhD Active HYDROCODONE-ACETAMINOPHEN 5-325 MG TABS 1 po q 6hr PRN cough 201 05/09/16 HYDROCODONE-ACETAMINOPHEN 22838201723 No Longer Active Marcy De La Rosa MD PhD Active PREDNISONE 20 MG TAB 2 tabs daily for 3 days, 1 t ab daily for 3 days, 1/2 tab daily for 2 days PREDNISONE 19609630567 No Longer Active Carlton Hu MD Active CEFDINIR 300 MG CAPS by mouth twice a day CEFDI ODILIA 07331082421 No Longer Active Carlton Hu MD Active ZOCOR 40 MG TAB 1 tab by mouth daily SIMVASTATIN 60992385670 Active Carlton Hu MD Active HYDROCHLOROTHIAZIDE 25 MG TABS 1 TAB PO DAILY H YDROCHLOROTHIAZIDE 20526179127 Active Carlton Hu MD Active ACETAMINOPHEN-CODEINE #3 300-30 MG TABS 1 tablet po q 4-6hrs prn pain ACETAMINOPHEN-CODEINE 12255124141 No Longer Active Ridge Bess DO Active ZITHROMAX 250 MG TAB 2 po today, then 1 po q days 2-5 AZITHROMYCIN 11766616655 No Longer Active Carlton Hu MD Acti ve CHERATUSSIN AC 100-10 MG/5ML SYRP take 1 tsp po q4-6 hours prn c ough GUAIFENESIN-CODEINE 39251869942 No Longer Active Carlton Hu MD Active ACETAMINOPHEN-CODEINE #3 300-30 MG TABS 1 PO Q 4-6 HR PRN PAIN 2 ACETAMINOPHEN-CODEINE 17446336239 No Longer Active Carlton rich MD Active LORTAB 7.5-500 MG/15ML ELIX 7.5 ml po q 4 hour prn cough HYDROCODONE-ACETAMINOPHEN 80443612778 No Longer Active Carlton Hu MD Active PREDNISONE 20 MG TAB 1 po bid 3 days, then 1 po q day 3 days 201 05/03/07 PREDNISONE 10441061851 No Longer Active Carlton Hu MD Active ELMIRON 100 MG CAPS 2 tablets in the am and 1 tablet at hs PENTOSAN POLYSULFATE SODIUM 66098913132 Active Gracie [place] Active CEFDINIR 300 MG CAPS by mouth twice a day CEFDI ODILIA 70704217667 No Longer Active Carlton Hu MD Active CEFDINIR 300 MG CAPS by mouth twice a day CEFDI ODILIA 92892605428 No Longer Active Carlton Hu MD Active CEFDINIR 300 MG CAPS by mouth twice a day CEFDI ODILIA 25464461083 No Longer Active Carlton Hu MD Active TESSALON PERLES 100 MG CAP 1 tablet by mouth 3 times daily a s needed for cough BENZONATATE 85807208604 No Longer Active Carlton bustamante MD Active CEFDINIR 300 MG CAPS by mouth twice a day CEFDI ODILIA 96107225761 No Longer Active Carlton Hu MD Active ZITHROMAX Z-REYNA 250 MG TABS 2 today, then 1 daily for 4 days 201 04/09/17 AZITHROMYCIN 41458049223 No Longer Active Hugo Restrepo MD Active TESSALON PERLES 100 MG CAP 1 tablet by mouth 3 times daily a s needed for cough TESSALON PERLES 100 MG CAP 798169 BENZONATATE I nactive PREDNISONE 20 MG TAB 1 po bid 3 days, then 1 po q day 3 days 201 05/03/07 PREDNISONE 20 MG TAB 519387 PREDNISONE Inactive LORTAB 7.5-500 MG/15ML ELIX 7.5 ml po q 4 hour prn cough LORTAB 7.5-500 MG/15ML ELIX HYDROCODONE-ACETAMINOPHEN Inacti ve ACETAMINOPHEN-CODEINE #3 300-30 MG TABS 1 PO Q 4-6 HR PRN PAIN 2 ACETAMINOPHEN-CODEINE #3 300-30 MG TABS 732220 ACETAMIN OPHEN-CODEINE Inactive CHERATUSSIN AC 100-10 MG/5ML SYRP take 1 tsp po q4-6 hours prn c ough CHERATUSSIN AC 100-10 MG/5ML SYRP 066994 GUAIFENESIN-CO DEINE Inactive ACETAMINOPHEN-CODEINE #3 300-30 MG TABS 1 tablet po q 4-6hrs prn pain ACETAMINOPHEN-CODEINE #3 300-30 MG TABS 131504 ACETAMIN OPHEN-CODEINE Inactive HYDROCODONE-ACETAMINOPHEN 5-325 MG TABS 1 po q 6hr PRN cough 201 05/09/16 HYDROCODONE-ACETAMINOPHEN 5-325 MG TABS 374327 HYDROCODONE-ACETAMINOPHEN Inactive AVELOX 400 MG TABS 1 tab by mouth daily A VELOX 400 MG TABS 523180 MOXIFLOXACIN HCL Inactive CHERATUSSIN AC 100-10 MG/5ML SYRP 1 tsp by mouth every 4 hours as needed for cough CHERATUSSIN AC 100-10 MG/5ML SYRP 493408 GUAIFENESIN-CODEINE Inactive TERBINAFINE HCL 250 MG TABS 1 qDay TERBINAFINE HCL 250 MG TABS 693853 TERBINAFINE HCL Inactive CHERATUSSIN AC 100-10 MG/5ML SYRP 1 tsp by mouth every 4 hours as needed for cough CHERATUSSIN AC 100-10 MG/5ML SYRP 371871 GUAIFENESIN-CODEINE Inactive ACETAMINOPHEN-CODEINE #3 300-30 MG TABS 1 PO Q 4-6 HRS PRN PAIN ACETAMINOPHEN-CODEINE #3 300-30 MG TABS 501441 ACETAMINOPHEN-CODEIN E Inactive CHERATUSSIN AC 100-10 MG/5ML SYRP 1 tsp by mouth every 4 hours as needed for cough CHERATUSSIN AC 100-10 MG/5ML SYRP 020267 GUAIFENESIN-CODEINE Inactive AUGMENTIN 875-125 MG TAB 1 tab by mouth twice daily with food 20 12/03/31 AUGMENTIN 875-125 MG TAB 988747 AMOXICILLIN-POT CLAVULA EFE Inactive CHERATUSSIN AC 100-10 MG/5ML SYRP take one tsp po Q 6hours prn c ough CHERATUSSIN AC 100-10 MG/5ML SYRP 726794 GUAIFENESIN-CO DEINE Inactive PROPRANOLOL HCL 60 MG TABS 1 PO Q D P ROPRANOLOL HCL 60 MG TABS 570556 PROPRANOLOL HCL Inactive TOPAMAX 50 MG TABS take 1 tab po BID for migraines. 12/07/10 TOPAMAX 50 MG TABS 541926 TOPIRAMATE Inactive TOPAMAX 25 MG TABS 1 qHS x 1 week, then 1 BID x 1 week, then 1 qAM and 2 qHS x 1 week, then 2 BID (migraine prevention) TOPAMAX 2 5 MG TABS 374441 TOPIRAMATE Inactive LYRICA 75 MG CAPS TAKE 1 CAPSULE BY MOUTH TWICE DAILY LYRICA 75 MG CAPS PREGABALIN Inactive SYMBICORT 160-4.5 MCG/ACT AERO 2 puffs bid with rinse after 2011 SYMBICORT 160-4.5 MCG/ACT AERO BUDESONIDE-FORMOT SÁNCHEZ FUMARATE Inactive PROMETHAZINE-CODEINE 6.25-10 MG/5ML SYRP 1 tsp by mouth ever y 8 hours prn cough PROMETHAZINE-CODEINE 6.25-10 MG/5ML SYRP 163181 PROMETHAZINE-CODEINE Inactive CYMBALTA 30 MG CPEP 1 cap by mouth daily CYMBALTA 30 MG CPEP 288427 DULOXETINE HCL Inactive PREMARIN 0.625 MG TABS TAKE 1 TAB BY MOUTH DAILY 07/25 PREMARIN 0.625 MG TABS ESTROGENS CONJUGATED Inactive ZITHROMAX Z-REYNA 250 MG TABS 2 today, then 1 daily for 4 days 201 04/09/17 ZITHROMAX Z-REYNA 250 MG TABS 5669018 AZITHROMYCIN Inac tive CEFDINIR 300 MG CAPS [...] q days 2-5 ZITHROMAX 250 MG TAB 2412263 AZITHROMYCIN Inactive CEFDINIR 300 MG CAPS by mouth twice a day CEFDINIR 300 MG CAPS 20020704 CEFDINIR Inactive PREDNISONE 20 MG TAB 2 tabs daily for 3 days, 1 t ab daily for 3 days, 1/2 tab daily for 2 days PREDNISONE 20 MG TAB 906478 PREDNISON E Inactive AVELOX 400 MG TABS 1 tab by mouth daily A VELOX 400 MG TABS 477739 MOXIFLOXACIN HCL Inactive AVELOX 400 MG TABS 1 tab by mouth daily A VELOX 400 MG TABS 008175 MOXIFLOXACIN HCL Inactive PREDNISONE 20 MG TAB Take 3 tabs daily for 3 days , 2 tabs daily for 3 days, 1 tab daily for 3 days, 1/2 tab daily for 3 days PREDNISONE 20 MG TAB 823685 PREDNISONE Inactive LEVAQUIN 500 MG TABS take one po QD LEVAQUIN 50 0 MG TABS 650691 LEVOFLOXACIN Inactive AZITHROMYCIN 250 MG TABS 2 po qd x 1 day, then 1 po qd x 4 days AZITHROMYCIN 250 MG TABS 7689242 AZITHROMYCIN Inactiv e MEDROL (REYNA) 4 MG TABS 6 tabs on day 1, 5 tabs on d ay 2, 4 tabs on day 3, 3 tabs on day 4, 2 tabs on day 5, 1 tab on day 6 MEDROL (REYNA) 4 MG TABS METHYLPREDNISOLONE Inactive CHERATUSSIN AC 100-10 MG/5ML SYRP 5ml po q6hr PRN Cough CHERATUSSIN AC 100-10 MG/5ML SYRP 122937 GUAIFENESIN-CODEINE Inacti ve TRIAMCINOLONE ACETONIDE 0.1 % CREA apply three times daily prn r beatrice TRIAMCINOLONE ACETONIDE 0.1 % CREA 4178655 TRIAMCINOLONE ACETONIDE Inactive AZITHROMYCIN 250 MG TABS 2 po qd x 1 day, then 1 po qd x 4 days AZITHROMYCIN 250 MG TABS 7563804 AZITHROMYCIN Inactiv e MEDROL (REYNA) 4 MG [...] days 20 13/03/08 AMOXICILLIN 500 MG CAP 844053 AMOXICILLIN Inactive AMOXICILLIN 500 MG CAP 1 tab by mouth 3 times daily x 10 days 20 14/04/28 AMOXICILLIN 500 MG CAP 518126 AMOXICILLIN Inactive ZITHROMAX 250 MG TAB 2 po today, then 1 po q days 2-5 ZITHROMAX 250 MG TAB 5666153 AZITHROMYCIN Inactive AUGMENTIN 875-125 MG TAB 1 po BID x 10 days AUGMENTIN 875- 125 MG TAB 565532 AMOXICILLIN-POT CLAVULANATE Inactive ZITHROMAX Z-REYNA 250 MG TABS 2 today, then 1 daily for 4 days 201 08/07/20 ZITHROMAX Z-REYNA 250 MG TABS 9860022 AZITHROMYCIN Inac tive ZITHROMAX 250 MG TAB 2 po today, then 1 po q days 2-5 ZITHROMAX 250 MG TAB 8132422 AZITHROMYCIN Inactive Vital Signs Date Name Value Unit Range Description blood pressure, diastolic - 8462-4 80 mm[Hg] [...] Measured Encounters Code Encounter Date Provider Facility CPT-97022 Level 3 Est. Patient 09:45:49 DIRECTOR OF HOME CARE HOSPICE Carlton rich MD [facility] CPT-08557 Level 3 Est. Patient 13:19:20 CDT Carlton rich MD [facility] CPT-76662 Level 3 Est. Patient 13:06:43 CDT Ridge tam DO [facility] CPT-52415 Level 3 Est. Patient 10:03:07 CDT Perez Mora MD [facility] CPT-15770 Level 3 Est. Patient 19:50:35 DIRECT[facility] OF HOME CARE HOSPICE Carlton rich MD [facility] CPT-79819 Level 4 Est. Patient 18:05:01 DIRECTOR OF HOME CARE HOSPICE Carlton rich MD [facility] CPT-87190 Level 3 Est. Patient 10:45:55 DIRECTOR OF HOME CARE HOSPICE Hugo Restrepo MD [facility] CPT-92916 Level 3 Est. Patient 14:12:49 CDT Griffin HERNANDEZ [facility] CPT-04848 Level 3 Est. Patient 17:37:24 CDT Carlton rich MD [facility] CPT-02779 Level 3 Est. Patient 16:51:54 CDT Carlton rich MD [facility] CPT-28477 Level 3 Est. Patient 12:18:11 CDT Hugo Restrepo MD [facility] CPT-94526 Level 3 Est. Patient 11:30:25 CDT Marcy crisostomo MD PhD [facility] CPT-08786 Level 3 Est. Patient 12:00:47 DIRECT[facility] CARE HOSPICE Carlton rich MD [facility] CPT-64912 Level 3 Est. Patient 16:31:06 DIRECTOR OF HOME CARE HOSPICE Carlton rich MD [facility] CPT-09979 Level 3 Est. Patient 16:23:24 DIRECTOR OF HOME CARE HOSPICE Ridge tam DO [facility] CPT-26774 Level 3 Est. Patient 12:34:12 CDT Carlton rich MD [facility] CPT-13077 Level 2 Est. Patient 15:43:33 CDT Robi armstrong MD [facility] CPT-92175 Level 4 Est. Patient 14:04:44 CDT Carlton rich MD [facility] CPT-96789 Level 3 Est. Patient 05:47:59 CDT Ridge tam [facility] CPT-95975 Level 3 Est. Patient 13:12:53 DIRECTOR OF HOME CARE HOSPICE Carlton rich MD [facility] CPT-71259 Level 3 Est. Patient 14:26:53 CDT Hugo Restrepo MD [facility] Procedures Code Procedure Name Date Entry Date Standard Desc ription CPT-76387 Hip bilat min 2V w AP pelvis 13:16:20 CDT 2 CPT-92590 Pelvis only 13:07:33 CDT CPT-38752 Spec Collection and Handling Fee 11:25:12 C DT CPT-94740 Fluzone Quadrivalent Intramuscular Suspe nsion 0.5 ML 14:31:55 CDT CPT-77612 Abx/Therapy Injection 13:28:47 [facility]ARE [facility]PICE CPT-J2930 Solu Medrol 125 mg (Methyl Prednisolone Sodium Succinate) 12:00:47 [facility] HOME [facility]ARE [facility]OSPICE CPT-53218 Venipuncture Draw Fee 11:33:31 CDT CPT-78296 EKG Trac and Interp 11:21:09 CDT CPT-72306 Chest 2V Frontal and Lat 11:21:09 CDT 12/15 CPT-07111 Venipuncture Draw Fee 08:02:34 CDT CPT-89259 Chest 2V Frontal and Lat 05:47:59 CDT 06/05
--- OUTSIDE RECORDS SUMMARY | 2019-10-08 08:12 | XMS REPORT | Clinical Summary ---
Author Author Ciatlin, Juliana Martinez Organization [employer] 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 Inactive Marcy De La [...] ICD-490 Inactive Hugo Restrepo MD 201 10/02/29 BRONCHITIS ICD-490 Inactive Hugo Restrepo MD 201 04/09/17 Medication List Medication Instructions Start Date Stop Date Generic Name NDC Status Provider Patient Instruction TUSSIONEX PENNKINETIC ER 10-8 MG/5ML LQCR 5 ml twice a day a s needed for cough HYDROCOD POLST-CHLORPHEN POLST 54929594254 Active Hugo Restrepo MD Active TUSSIONEX PENNKINETIC ER 10-8 MG/5ML LQCR 5ml po q12hr PRN Cough HYDROCOD POLST-CHLORPHEN POLST 65485243657 No Longer Active Hugo Restrepo MD Active GABAPENTIN 100 MG CAPS 1 po BID for fibromyalgia GABAPENTIN 63231657297 Active Elise Whitmore APRN Active LYRICA 100 MG CAPS Take 1 tab po BID for fibromyalgia PREGABALIN 22408720776 No Longer Active Elise Whitmore APRN Acti ve PROAIR HFA 108 (90 BASE) MCG/ACT AERS 2 puffs four times a d ay as needed ALBUTEROL SULFATE 96304719078 Active Diya De Guzman APR N Active MUCINEX DM MAXIMUM STRENGTH 60-1200 MG [id number] 1 tab po q am 2016 DEXTROMETHORPHAN-GUAIFENESIN 98997276820 Active Diya De Guzman RECORDING ENGINEER Active PREDNISONE 20 MG TAB 2 tabs daily for 3 days, 1 t ab daily for 3 days, 1/2 tab daily for 2 days PREDNISONE 62033529156 No Longer Active Diya De Guzman RECORDING ENGINEER Active TUSSIONEX PENNKINETIC ER 10-8 MG/5ML ORAL LQCR 5 mL PO q 12 hrs PRN cough HYDROCOD POLST-CHLORPHEN POLST 41137175778 No Longer Active Diya De Guzman RECORDING ENGINEER Active FLUTICASONE PROPIONATE 50 MCG/ACT SUSP 2 sprays each n ostril daily until bottle is empty FLUTICASONE PROPIONATE 97970177735 No Longer Ac tive Diya De Guzman APRN Active ASMANEX 60 METERED DOSES 220 MCG/INH AEPB 1 puff bid with ri nse after MOMETASONE FUROATE 14412128505 No Longer Active Diya meneses RECORDING ENGINEER Active ZITHROMAX Z-REYNA 250 MG TABS 2 today, then 1 daily for 4 days 201 09/29/14 AZITHROMYCIN 14493002402 No Longer Active Elise Whitmore APRN Active TUSSIONEX PENNKINETIC ER 10-8 MG/5ML LQCR 5ml po q12hr PRN Cough HYDROCOD POLST-CHLORPHEN POLST 57669585442 No Longer Active Elise Whitmore APRN Active MUCINEX D 60-600 MG [id number] 1 tab po q am PSEUDOEPHEDRINE-GUAIFENESIN 78123875955 Active Diya De Guzman RECORDING ENGINEER Active PREDNISONE 20 MG TAB 2 tabs daily for 3 days, 1 t ab daily for 3 days, 1/2 tab daily for 2 days PREDNISONE 17728745505 No Longer Active Jiriley De Guzman APRN Active AMOXICILLIN 500 MG CAPS 2 po BID x 10 days AMOX ICILLIN 65213231380 No Longer Active Jillina Frazell RECORDING ENGINEER Active SINGULAIR 10 MG TABS 1 po qday for allergies 2 MONTELUKAST SODIUM 33975932419 No Longer Active Carlton Hu MD Acti ve LEVAQUIN 500 MG TAB 1 tablet by mouth daily LEV OFLOXACIN 75382949359 No Longer Active Carlton Hu MD Active FLUTICASONE PROPIONATE 50 MCG/ACT SUSP 2 sprays each n ostril daily for 2 weeks, then 1 spray each nostril daily. FLUTICASONE PRO PIONATE 91329081546 Active Elise Whitmore APRN Active ZITHROMAX 250 MG TAB 2 po today, then 1 po q days 2-5 AZITHROMYCIN 57253260450 No Longer Active Elise Whitmore APRN Acti ve XANAX 0.5 MG TABS one tablet by mouth daily prn anxiety ALPRAZOLAM 68693943620 Active Elise Whitmore APRN Active CYMBALTA 30 MG CPEP 1 cap by mouth daily for depression DULOXETINE HCL 36069102307 Active Carlton Hu MD Active CEFDINIR 300 MG CAPS 1 po BID x 10 days CEFDINI R 05569733288 No Longer Active Carlton Hu MD Active ZOCOR 40 MG TAB 1 tab by mouth daily SIMVASTATI N 50410521098 No Longer Active Carlton Hu MD Active CYCLOBENZAPRINE HCL 10 MG TABS 1 tablet by mouth BID prn had cherelle n CYCLOBENZAPRINE HCL 86520325266 No Longer Active Carlton Hu MD Active LEVOFLOXACIN 500 MG ORAL TABS 1 tab PO daily x 10 days LEVOFLOXACIN 36100115737 No Longer Active Carlton Hu MD Acti ve PREDNISONE 20 MG ORAL TABS 3 tab PO qd x 2d, 2 tab PO qd x 2d, 1 tab PO qd x 2d, 1/2 tab PO qd x 2d PREDNISONE 30571598735 No Longer Active Carlton Hu MD Active FLUTICASONE PROPIONATE 50 MCG/ACT SUSP 1 to 2 sprays each no stril daily FLUTICASONE PROPIONATE 68994185883 No Longer Active T jaz HERNANDEZ Active CHERATUSSIN AC 100-10 MG/5ML SYRP 1 tsp by mouth every 4 hours as needed for cough GUAIFENESIN-CODEINE 33050484568 No Longer Activ e Blaine HERNANDEZ Active PROMETHAZINE-CODEINE 6.25-10 MG/5ML SYRP 1 tsp by mout h every 6 hours if needed for cough PROMETHAZINE-CODEINE 35871058138 No Long er Active Blaine HERNANDEZ Active CHERATUSSIN AC 100-10 MG/5ML SYRP 1 tsp by mouth every 4 hours as needed for cough GUAIFENESIN-CODEINE 71457506067 No Longer Activ e Blaine HERNANDEZ Active ZITHROMAX Z-REYNA 250 MG TABS 2 today, then 1 daily for 4 days 201 08/30/03 AZITHROMYCIN 13595927499 No Longer Active Columba Raida Act nael ZITHROMAX 250 MG TAB 2 po today, then 1 po q days 2-5 AZITHROMYCIN 35279642285 No Longer Active Carlton Hu MD Acti ve ZITHROMAX Z-REYNA 250 MG TABS 2 today, then 1 daily for 4 days 201 08/07/20 AZITHROMYCIN 30933896848 No Longer Active Columba Raida Act nael AUGMENTIN 875-125 MG TAB 1 po BID x 10 days AMOXICILLIN- POT CLAVULANATE 32362939779 No Longer Active Diya De Guzman APRN Active ZITHROMAX 250 MG TAB 2 po today, then 1 po q days 2-5 AZITHROMYCIN 82928442783 No Longer Active Carlton hall TRAMADOL HCL 50 MG TABS 1 po tid with ES Tylenol TRAMADOL HCL 87367359767 Active Carlton Hu MD Active PREMARIN 0.625 MG TABS TAKE 1 TAB BY MOUTH DAILY 07/25 ESTROGENS CONJUGATED 94772752794 No Longer Active Ridge Bess DO Active CYMBALTA 30 MG CPEP 1 cap by mouth daily DULOXE SNEHA HCL 37804548569 No Longer Active Ridge Bess DO Active AMOXICILLIN 500 MG CAP 1 tab by mouth 3 times daily x 10 days 20 14/04/28 AMOXICILLIN 14762553413 No Longer Active Carlton Hu MD Active AMOXICILLIN 500 MG CAP 1 tab by mouth 3 times daily x 10 days 20 13/03/08 AMOXICILLIN 32352656277 No Longer Active Carlton Hu MD Active PROMETHAZINE-CODEINE 6.25-10 MG/5ML SYRP 1 tsp by mouth ever y 8 hours prn cough PROMETHAZINE-CODEINE 62473102368 No Longer Active Robert Hu MD Active MEDROL (REYNA) 4 MG TABS 6 pills x 1 day, then 5 pill s x 1 day then 4 pills x 1 day, then 3 pills x 1 day, then 2 pills x 1 day, then 1 pill x 1 day, then stop METHYLPREDNISOLONE 94550512125 No Longer Active Parris Mora MD Active AZITHROMYCIN 250 MG TABS 2 po qd x 1 day, then 1 po qd x 4 days AZITHROMYCIN 05142384230 No Longer Active Perez Mora MD Active SYMBICORT 160-4.5 MCG/ACT AERO 2 puffs bid with rinse after 2011 BUDESONIDE-FORMOTEROL FUMARATE 08240969752 No Longer Active Perez Mora MD Active LYRICA 75 MG CAPS TAKE 1 CAPSULE BY MOUTH TWICE DAILY 2013 PREGABALIN 33278043571 No Longer Active Carlton Hu MD Active TOPAMAX 25 MG TABS 1 qHS x 1 week, then 1 BID x 1 week, then 1 qAM and 2 qHS x 1 week, then 2 BID (migraine prevention) TOPIRAMAT E 75855856326 No Longer Active Jerica FUENTES Active TOPAMAX 50 MG TABS take 1 tab po BID for migraines. 12/07/10 TOPIRAMATE 99488597589 No Longer Active Jerica Osei RMA Ac tive TOPAMAX 100 MG TABS Take 1 tablet po bid TOPIRAMATE 4999 8419507 Active Elise Whitmore APRN Active TRIAMCINOLONE ACETONIDE 0.1 % CREA apply three times daily prn r beatrice TRIAMCINOLONE ACETONIDE 08114520468 No Longer Active Carlton Hu MD Active PAXIL 40 MG TAB take 1 tab po qday for depression PAROXETINE HCL 98240629769 Active Elise Whitmore APRN Active CHERATUSSIN AC 100-10 MG/5ML SYRP 5ml po q6hr PRN Cough GUAIFENESIN-CODEINE 71323009650 No Longer Active Carlton Hu MD Active MEDROL (REYNA) 4 MG TABS 6 tabs on day 1, 5 tabs on d ay 2, 4 tabs on day 3, 3 tabs on day 4, 2 tabs on day 5, 1 tab on day 6 METHYLPREDNISOLONE 97891920034 No Longer Active Perez Mora MD Active AZITHROMYCIN 250 MG TABS 2 po qd x 1 day, then 1 po qd x 4 days AZITHROMYCIN 28353335608 No Longer Active Perez Mora MD Active PROPRANOLOL HCL 60 MG TABS 1 PO Q D PROPRANOL OL HCL 11183461211 No Longer Active Perez Mora MD Active CHERATUSSIN AC 100-10 MG/5ML SYRP take one tsp po Q 6hours prn c ough GUAIFENESIN-CODEINE 26703512438 No Longer Active Perez Means Active AUGMENTIN 875-125 MG TAB 1 tab by mouth twice daily with food 20 12/03/31 AMOXICILLIN-POT CLAVULANATE 90456195668 No Longer Active Chanle Mora MD Active CHERATUSSIN AC 100-10 MG/5ML SYRP 1 tsp by mouth every 4 hours as needed for cough GUAIFENESIN-CODEINE 54929026902 No Longer Activ e Hugo Restrepo MD Active ACETAMINOPHEN-CODEINE #3 300-30 MG TABS 1 PO Q 4-6 HRS PRN PAIN ACETAMINOPHEN-CODEINE 92757966575 No Longer Active Hugo Restrepo MD Active LEVAQUIN 500 MG TABS take one po QD LEVOFLOXACI N 26400835470 No Longer Active Griffin HERNANDEZ Active PREDNISONE 20 MG TAB Take 3 tabs daily for 3 days , 2 tabs daily for 3 days, 1 tab daily for 3 days, 1/2 tab daily for 3 days P REDNISONE 97223574526 No Longer Active Carlton Hu MD Active AVELOX 400 MG TABS 1 tab by mouth daily MOXIFLO XACIN HCL 73616234362 No Longer Active Carlton Hu MD Active CHERATUSSIN AC 100-10 MG/5ML SYRP 1 tsp by mouth every 4 hours as needed for cough GUAIFENESIN-CODEINE 25044907995 No Longer Activ e Hugo Restrepo MD Active AVELOX 400 MG TABS 1 tab by mouth daily MOXIFLO XACIN HCL 49285776843 No Longer Active Marcy De La Rosa MD PhD Active TERBINAFINE HCL 250 MG TABS 1 qDay TERBINAF INE HCL 57007771841 No Longer Active Marcy De La Rosa MD PhD Active CHERATUSSIN AC 100-10 MG/5ML SYRP 1 tsp by mouth every 4 hours as needed for cough GUAIFENESIN-CODEINE 78351433446 No Longer Activ e Marcy De La Rosa MD PhD Active AVELOX 400 MG TABS 1 tab by mouth daily MOXIFLO XACIN HCL 48671334196 No Longer Active Marcy De La Rosa MD PhD Active HYDROCODONE-ACETAMINOPHEN 5-325 MG TABS 1 po q 6hr PRN cough 201 05/09/16 HYDROCODONE-ACETAMINOPHEN 31516851330 No Longer Active Marcy De La Rosa MD PhD Active PREDNISONE 20 MG TAB 2 tabs daily for 3 days, 1 t ab daily for 3 days, 1/2 tab daily for 2 days PREDNISONE 37854209188 No Longer Active Carlton Hu MD Active CEFDINIR 300 MG CAPS by mouth twice a day CEFDI ODILIA 70299114181 No Longer Active Carlton Hu MD Active HYDROCHLOROTHIAZIDE 25 MG TABS 1 TAB PO DAILY H YDROCHLOROTHIAZIDE 09620127917 Active Carlton Hu MD Active ACETAMINOPHEN-CODEINE #3 300-30 MG TABS 1 tablet po q 4-6hrs prn pain ACETAMINOPHEN-CODEINE 46257269623 No Longer Active Ridge Bess DO Active ZITHROMAX 250 MG TAB 2 po today, then 1 po q days 2-5 AZITHROMYCIN 45294941781 No Longer Active Carlton Hu MD Acti ve CHERATUSSIN AC 100-10 MG/5ML SYRP take 1 tsp po q4-6 hours prn c ough GUAIFENESIN-CODEINE 67098229436 No Longer Active Carlton Hu MD Active ACETAMINOPHEN-CODEINE #3 300-30 MG TABS 1 PO Q 4-6 HR PRN PAIN 2 ACETAMINOPHEN-CODEINE 18499241320 No Longer Active Carlton rich MD Active LORTAB 7.5-500 MG/15ML ELIX 7.5 ml po q 4 hour prn cough HYDROCODONE-ACETAMINOPHEN 22726565968 No Longer Active Carlton Hu MD Active PREDNISONE 20 MG TAB 1 po bid 3 days, then 1 po q day 3 days 201 05/03/07 PREDNISONE 90775956845 No Longer Active Carlton Hu MD Active ELMIRON 100 MG CAPS 2 tablets in the am and 1 tablet at hs PENTOSAN POLYSULFATE SODIUM 80212974897 Active Carlton Hu MD Ac tive CEFDINIR 300 MG CAPS by mouth twice a day CEFDI ODILIA 41757815953 No Longer Active Carlton Hu MD Active CEFDINIR 300 MG CAPS by mouth twice a day CEFDI ODILIA 80455935132 No Longer Active Carlton Hu MD Active CEFDINIR 300 MG CAPS by mouth twice a day CEFDI ODILIA 82113640098 No Longer Active Carlton Hu MD Active TESSALON PERLES 100 MG CAP 1 tablet by mouth 3 times daily a s needed for cough BENZONATATE 97235999007 No Longer Active Carlton bustamante MD Active CEFDINIR 300 MG CAPS by mouth twice a day CEFDI ODILIA 37347701497 No Longer Active Carlton Hu MD Active ZITHROMAX Z-REYNA 250 MG TABS 2 today, then 1 daily for 4 days 201 04/09/17 AZITHROMYCIN 65439152015 No Longer Active Hugo Restrepo MD Active TESSALON PERLES 100 MG CAP 1 tablet by mouth 3 times daily a s needed for cough TESSALON PERLES 100 MG CAP 801034 BENZONATATE I nactive PREDNISONE 20 MG TAB 1 po bid 3 days, then 1 po q day 3 days 201 05/03/07 PREDNISONE 20 MG TAB 519939 PREDNISONE Inactive LORTAB 7.5-500 MG/15ML ELIX 7.5 ml po q 4 hour prn cough LORTAB 7.5-500 MG/15ML ELIX HYDROCODONE-ACETAMINOPHEN Inacti ve ACETAMINOPHEN-CODEINE #3 300-30 MG TABS 1 PO Q 4-6 HR PRN PAIN 2 ACETAMINOPHEN-CODEINE #3 300-30 MG TABS ACETAMIN OPHEN-CODEINE Inactive CHERATUSSIN AC 100-10 MG/5ML SYRP take 1 tsp po q4-6 hours prn c ough CHERATUSSIN AC 100-10 MG/5ML SYRP 153882 GUAIFENESIN-CO DEINE Inactive ACETAMINOPHEN-CODEINE #3 300-30 MG TABS 1 tablet po q 4-6hrs prn pain ACETAMINOPHEN-CODEINE #3 300-30 MG TABS ACETAMIN OPHEN-CODEINE Inactive HYDROCODONE-ACETAMINOPHEN 5-325 MG TABS 1 po q 6hr PRN cough 201 05/09/16 HYDROCODONE-ACETAMINOPHEN 5-325 MG TABS 750657 HYDROCODONE-ACETAMINOPHEN Inactive AVELOX 400 MG TABS 1 tab by mouth daily A VELOX 400 MG TABS 257783 MOXIFLOXACIN HCL Inactive CHERATUSSIN AC 100-10 MG/5ML SYRP 1 tsp by mouth every 4 hours as needed for cough CHERATUSSIN AC 100-10 MG/5ML SYRP 874128 GUAIFENESIN-CODEINE Inactive TERBINAFINE HCL 250 MG TABS 1 qDay TERBINAFINE HCL 250 MG TABS 776343 TERBINAFINE HCL Inactive CHERATUSSIN AC 100-10 MG/5ML SYRP 1 tsp by mouth every 4 hours as needed for cough CHERATUSSIN AC 100-10 MG/5ML SYRP 169075 GUAIFENESIN-CODEINE Inactive ACETAMINOPHEN-CODEINE #3 300-30 MG TABS 1 PO Q 4-6 HRS PRN PAIN ACETAMINOPHEN-CODEINE #3 300-30 MG TABS ACETAMINOPHEN-CODEIN E Inactive CHERATUSSIN AC 100-10 MG/5ML SYRP 1 tsp by mouth every 4 hours as needed for cough CHERATUSSIN AC 100-10 MG/5ML SYRP 055157 GUAIFENESIN-CODEINE Inactive AUGMENTIN 875-125 MG TAB 1 tab by mouth twice daily with food 20 12/03/31 AUGMENTIN 875-125 MG TAB 969864 AMOXICILLIN-POT CLAVULA EFE Inactive CHERATUSSIN AC 100-10 MG/5ML SYRP take one tsp po Q 6hours prn c ough CHERATUSSIN AC 100-10 MG/5ML SYRP 259750 GUAIFENESIN-CO DEINE Inactive PROPRANOLOL HCL 60 MG TABS 1 PO Q D P ROPRANOLOL HCL 60 MG TABS 875730 PROPRANOLOL HCL Inactive TOPAMAX 50 MG TABS take 1 tab po BID for migraines. 12/07/10 TOPAMAX 50 MG TABS 876546 TOPIRAMATE Inactive TOPAMAX 25 MG TABS 1 qHS x 1 week, then 1 BID x 1 week, then 1 qAM and 2 qHS x 1 week, then 2 BID (migraine prevention) TOPAMAX 2 5 MG TABS 165297 TOPIRAMATE Inactive LYRICA 75 MG CAPS TAKE 1 CAPSULE BY MOUTH TWICE DAILY LYRICA 75 MG CAPS PREGABALIN Inactive SYMBICORT 160-4.5 MCG/ACT AERO 2 puffs bid with rinse after 2011 SYMBICORT 160-4.5 MCG/ACT AERO BUDESONIDE-FORMOT SÁNCHEZ FUMARATE Inactive PROMETHAZINE-CODEINE 6.25-10 MG/5ML SYRP 1 tsp by mouth ever y 8 hours prn cough PROMETHAZINE-CODEINE 6.25-10 MG/5ML SYRP 585585 PROMETHAZINE-CODEINE Inactive CYMBALTA 30 MG CPEP 1 cap by mouth daily CYMBALTA 30 MG CPEP 208153 DULOXETINE HCL Inactive PREMARIN 0.625 MG TABS TAKE 1 TAB BY MOUTH DAILY 07/25 PREMARIN 0.625 MG TABS ESTROGENS CONJUGATED Inactive CHERATUSSIN AC 100-10 MG/5ML SYRP 1 tsp by mouth every 4 hours as needed for cough CHERATUSSIN AC 100-10 MG/5ML SYRP 042391 GUAIFENESIN-CODEINE Inactive PROMETHAZINE-CODEINE 6.25-10 MG/5ML SYRP 1 tsp by mout h every 6 hours if needed for cough PROMETHAZINE-CODEINE 6.25-10 MG/5ML SYRP 802348 PROMETHAZINE-CODEINE Inactive CHERATUSSIN AC 100-10 MG/5ML SYRP 1 tsp by mouth every 4 hours as needed for cough CHERATUSSIN AC 100-10 MG/5ML SYRP 890168 GUAIFENESIN-CODEINE Inactive FLUTICASONE PROPIONATE 50 MCG/ACT SUSP 1 to 2 sprays each no stril daily FLUTICASONE PROPIONATE 50 MCG/ACT SUSP 8994277 FLUTICASONE PROPIONATE Inactive PREDNISONE 20 MG ORAL TABS 3 tab PO qd x 2d, 2 tab PO qd x 2d, 1 tab PO qd x 2d, 1/2 tab PO qd x 2d PREDNISONE 20 MG ORAL TABS 345277 PREDNISONE Inactive LEVOFLOXACIN 500 MG ORAL TABS 1 tab PO daily x 10 days LEVOFLOXACIN 500 MG ORAL TABS 856497 LEVOFLOXACIN Inactive CYCLOBENZAPRINE HCL 10 MG TABS 1 tablet by mouth BID prn had cherelle n CYCLOBENZAPRINE HCL 10 MG TABS 519226 CYCLOBENZAPRINE H CL Inactive ZOCOR 40 MG TAB 1 tab by mouth daily ZOCOR 40 M G TAB 271063 SIMVASTATIN Inactive TUSSIONEX PENNKINETIC ER 10-8 MG/5ML [...] empty FLUTICASONE PROPIONATE 50 MCG/ACT SUSP 17 34880 FLUTICASONE PROPIONATE Inactive TUSSIONEX PENNKINETIC ER 10-8 [...] 201 04/09/17 ZITHROMAX Z-REYNA 250 MG TABS 4095996 AZITHROMYCIN Inac tive CEFDINIR 300 MG CAPS [...] q days 2-5 ZITHROMAX 250 MG TAB 9837960 AZITHROMYCIN Inactive CEFDINIR 300 MG CAPS by mouth twice a day CEFDINIR 300 MG CAPS 20020704 CEFDINIR Inactive PREDNISONE 20 MG TAB 2 tabs daily for 3 days, 1 t ab daily for 3 days, 1/2 tab daily for 2 days PREDNISONE 20 MG TAB 924786 PREDNISON E Inactive AVELOX 400 MG TABS 1 tab by mouth daily A VELOX 400 MG TABS 930880 MOXIFLOXACIN HCL Inactive AVELOX 400 MG TABS 1 tab by mouth daily A VELOX 400 MG TABS 919655 MOXIFLOXACIN HCL Inactive PREDNISONE 20 MG TAB Take 3 tabs daily for 3 days , 2 tabs daily for 3 days, 1 tab daily for 3 days, 1/2 tab daily for 3 days PREDNISONE 20 MG TAB 037382 PREDNISONE Inactive LEVAQUIN 500 MG TABS take one po QD LEVAQUIN 50 0 MG TABS 987912 LEVOFLOXACIN Inactive AZITHROMYCIN 250 MG TABS 2 po qd x 1 day, then 1 po qd x 4 days AZITHROMYCIN 250 MG TABS 7174565 AZITHROMYCIN Inactiv e MEDROL (REYNA) 4 MG TABS 6 tabs on day 1, 5 tabs on d ay 2, 4 tabs on day 3, 3 tabs on day 4, 2 tabs on day 5, 1 tab on day 6 MEDROL (REYNA) 4 MG TABS 068537 METHYLPREDNISOLONE Inactive CHERATUSSIN AC 100-10 MG/5ML SYRP 5ml po q6hr PRN Cough CHERATUSSIN AC 100-10 MG/5ML SYRP 050278 GUAIFENESIN-CODEINE Inacti ve TRIAMCINOLONE ACETONIDE 0.1 % CREA apply three times daily prn r beatrice TRIAMCINOLONE ACETONIDE 0.1 % CREA 9487587 TRIAMCINOLONE ACETONIDE Inactive AZITHROMYCIN 250 MG TABS 2 po qd x 1 day, then 1 po qd x 4 days AZITHROMYCIN 250 MG TABS 5369897 AZITHROMYCIN Inactiv e MEDROL (REYNA) 4 MG TABS 6 pills x 1 day, then 5 pill s x 1 day then 4 pills x 1 day, then 3 pills x 1 day, then 2 pills x 1 day, then 1 pill x 1 day, then stop MEDROL (REYNA) 4 MG TABS 844468 METHYLPREDNISOLONE Inactive AMOXICILLIN 500 MG CAP 1 tab by mouth 3 times daily x 10 days 20 13/03/08 AMOXICILLIN 500 MG CAP 774195 AMOXICILLIN Inactive AMOXICILLIN 500 MG CAP 1 tab by mouth 3 times daily x 10 days 20 14/04/28 AMOXICILLIN 500 MG CAP 250508 AMOXICILLIN Inactive ZITHROMAX 250 MG TAB 2 po today, then 1 po q days 2-5 ZITHROMAX 250 MG TAB 5785333 AZITHROMYCIN Inactive AUGMENTIN 875-125 MG TAB 1 po BID x 10 days AUGMENTIN 875- 125 MG TAB 435211 AMOXICILLIN-POT CLAVULANATE Inactive ZITHROMAX Z-REYNA 250 MG TABS 2 today, then 1 daily for 4 days 201 08/07/20 ZITHROMAX Z-REYNA 250 MG TABS 5893303 AZITHROMYCIN Inac tive ZITHROMAX 250 MG TAB 2 po today, then 1 po q days 2-5 ZITHROMAX 250 MG TAB 7770554 AZITHROMYCIN Inactive ZITHROMAX Z-REYNA 250 MG TABS 2 today, then 1 daily for 4 days 201 08/30/03 ZITHROMAX Z-REYNA 250 MG TABS 0606751 AZITHROMYCIN Inac tive CEFDINIR 300 MG CAPS 1 po BID x 10 days C EFDINIR 300 MG CAPS 878329 CEFDINIR Inactive ZITHROMAX 250 MG TAB 2 po today, then 1 po q days 2-5 ZITHROMAX 250 MG TAB 3352675 AZITHROMYCIN Inactive LEVAQUIN 500 MG TAB 1 tablet by mouth daily LEVAQUIN 500 MG TAB 360418 LEVOFLOXACIN Inactive SINGULAIR 10 MG TABS 1 po qday for allergies 2 SINGULAIR 10 MG TABS 20010504 MONTELUKAST SODIUM Inactive AMOXICILLIN 500 MG CAPS 2 po BID x 10 days AMOXICILLIN 500 MG CAPS 766565 AMOXICILLIN Inactive PREDNISONE 20 MG TAB 2 tabs daily for 3 days, 1 t ab daily for 3 days, 1/2 tab daily for 2 days PREDNISONE 20 MG TAB 267698 PREDNISON E Inactive ZITHROMAX Z-REYNA 250 MG TABS 2 today, then 1 daily for 4 days 201 09/29/14 ZITHROMAX Z-REYNA 250 MG TABS 8464666 AZITHROMYCIN Inac tive PREDNISONE 20 MG TAB 2 tabs daily for 3 days, 1 t ab daily for 3 days, 1/2 tab daily for 2 days PREDNISONE 20 MG TAB 963551 PREDNISON E Inactive Vital Signs Date Name [...] - [id number] [lb_av] Weigh t Measured Encounters Code Encounter Date Provider Facility CPT-04263 Level 3 Est. Patient 12:17:50 CDT Hugo Restrepo MD [facility] CPT-28573 Level 3 Est. Patient 13:42:38 [facility] Level 3 Est. Patient 13:23:51 CDT Diya cobian [facility] CPT-99074 Level 3 Est. Patient 14:22:19 DOCTOR OF AUDIOLOGY Diya cobian [facility] CPT-39423 Level 3 Est. Patient 10:11:46 CDT Carlton rich MD [facility] CPT-62184 Level 3 Est. Patient 17:29:43 CDT Italo [facility] CPT-42880 Level 3 Est. Patient 11:58:06 CDT Italo [facility] CPT-28087 Level 4 Est. Patient 14:36:51 CDT Carlton rich MD [facility] CPT-39650 Level 3 Est. Patient 18:16:00 DOCTOR OF AUDIOLOGY Blaine Freeman [facility] CPT-87879 Level 3 Est. Patient 09:45:49 DOCTOR OF AUDIOLOGY Carlton rich MD [facility]-81287 Level 3 Est. Patient 13:19:20 CDT Carlton rich MD [facility]-12768 Level 3 Est. Patient 13:06:43 CDT Ridge tam DO [facility] CPT-25054 Level 3 Est. Patient 10:03:07 CDT Perez Mora MD [facility]-89934 Level 3 Est. Patient 19:50:35 DOCTOR OF AUDIOLOGY Carlton rich MD [facility] CPT-96987 Level 4 Est. Patient 18:05:01 DOCTOR OF AUDIOLOGY Carlton rich MD [facility] CPT-41759 Level 3 Est. Patient 10:45:55 DOCTOR OF AUDIOLOGY Hugo Restrepo MD [facility] CPT-30786 Level 3 Est. Patient 14:12:49 CDT Griffin lincoln [facility]-57642 Level 3 Est. Patient 17:37:24 CDT Carlton rich MD [facility]-73485 Level 3 Est. Patient 16:51:54 CDT Carlton rich MD [facility]-72833 Level 3 Est. Patient 12:18:11 CDT Hugo Restrepo MD [facility]-22874 Level 3 Est. Patient 11:30:25 CDT Marcy crisostomo MD PhD [facility]-79362 Level 3 Est. Patient 12:00:47 DOCTOR OF AUDIOLOGY Carlton rich MD [facility]-78574 Level 3 Est. Patient 16:31:06 DOCTOR OF AUDIOLOGY Carlton rich MD [facility] CPT-82880 Level 3 Est. Patient 16:23:24 DOCTOR OF AUDIOLOGY Ridge [facility] CPT-43681 Level 3 Est. Patient 12:34:12 CDT Carlton rich MD [facility] CPT-09627 Level 2 Est. Patient 15:43:33 CDT Robi armstrong MD [facility] CPT-97267 Level 4 Est. Patient 14:04:44 CDT Carlton rich MD [facility] CPT-49194 Level 3 Est. Patient 05:47:59 CDT Ridge [facility] CPT-17026 Level 3 Est. Patient 13:12:53 DOCTOR OF AUDIOLOGY Carlton rich MD [facility] CPT-92043 Level 3 Est. Patient 14:26:53 CDT Hugo Restrepo MD [facility] Procedures Code Procedure Name Date Entry Date Standard Desc ription CPT-J0696 Rocephin 1gm Inj Solr 14:32:13 CDT CPT-J1020 Depo Medrol 60 mg (Methyl Prednisolone A cetate) 14:32:13 CDT CPT-J1100 Decadron 6mg (Dexamethasone) 14:32:13 CDT 2 CPT-35914 Hip bilat min 2V w AP pelvis 13:16:20 CDT 2 CPT-70078 Pelvis only 13:07:33 CDT CPT-52798 Spec Collection and Handling Fee 11:25:12 C DT CPT-64446 Fluzone Quadrivalent Intramuscular Suspe nsion 0.5 ML 14:31:55 CDT CPT-96861 Abx/Therapy Injection 13:28:47 [employer] CPT-J2930 Solu Medrol 125 mg (Methyl Prednisolone Sodium Succinate) 12:00:47 [employer] CPT-13439 Venipuncture Draw Fee 11:33:31 CDT CPT-57883 EKG Trac and Interp 11:21:09 CDT CPT-84870 Chest 2V Frontal and Lat 11:21:09 CDT 12/15 CPT-53142 Venipuncture Draw Fee 08:02:34 CDT CPT-44527 Chest 2V Frontal and Lat 05:47:59 CDT 06/05
--- OUTSIDE RECORDS SUMMARY | 2019-10-08 08:13 | XMS REPORT | Clinical Summary ---
Author Author Caitlin, Juliana Martinez Organization [employer] [facility] Address Unknown Phone Unavailable [...] po daily for Allergy 6 MONTELUKAST SODIUM [id number] Active ALFREDO Holly Act nael TUSSIONEX PENNKINETIC ER 10-8 MG/5ML LQCR 5 ml twice a day a s needed for cough HYDROCOD POLST-CHLORPHEN POLST 48835922027 Active Hugo Restrepo MD Active TUSSIONEX PENNKINETIC ER 10-8 MG/5ML LQCR 5ml po q12hr PRN Cough HYDROCOD POLST-CHLORPHEN POLST 14833958164 No Longer Active Hugo Restrepo MD Active GABAPENTIN 100 MG CAPS 1 po BID for fibromyalgia GABAPENTIN 08773335719 Active Elise Whitmore APRN Active LYRICA 100 MG CAPS Take 1 tab po BID for fibromyalgia PREGABALIN 51290717751 No Longer Active Elise Whitmore APRN Acti ve PROAIR HFA 108 (90 BASE) MCG/ACT AERS 2 puffs four times a d ay as needed ALBUTEROL SULFATE 45556069152 Active Diya De Guzman APR N Active MUCINEX DM MAXIMUM STRENGTH 60-1200 MG [id number] 1 tab po q am 2016 DEXTROMETHORPHAN-GUAIFENESIN 45615082465 Active Diya De Guzman SPRINK[employer]TER APPRENTICE Active PREDNISONE 20 MG TAB 2 tabs daily for 3 days, 1 t ab daily for 3 days, 1/2 tab daily for 2 days PREDNISONE 60850441054 No Longer Active Diya De Guzman SPRINKL[employer]TER APPRENTICE Active TUSSIONEX PENNKINETIC ER 10-8 MG/5ML ORAL LQCR 5 mL PO q 12 hrs PRN cough HYDROCOD POLST-CHLORPHEN POLST 00204674166 No Longer Active Diya Guerrerol [employer]INKL[employer] APPRENTICE Active FLUTICASONE PROPIONATE 50 MCG/ACT SUSP 2 sprays each n ostril daily until bottle is empty FLUTICASONE PROPIONATE 38487214576 No Longer Ac tive Diya Guerrerol [employer]INKL[employer] APPRENTICE Active ASMANEX 60 METERED DOSES 220 MCG/INH AEPB 1 puff bid with ri nse after MOMETASONE FUROATE 43047648549 No Longer Active Diya Saeed ell [employer]INK[employer] APPRENTICE Active ZITHROMAX Z-REYNA 250 MG TABS 2 today, then 1 daily for 4 days 201 09/29/14 AZITHROMYCIN 53258336274 No Longer Active Elise Whitmore APRN Active TUSSIONEX PENNKINETIC ER 10-8 MG/5ML LQCR 5ml po q12hr PRN Cough HYDROCOD POLST-CHLORPHEN POLST 59792171970 No Longer Active Elise Whitmore APRN Active MUCINEX D 60-600 MG [id number] 1 tab po q am PSEUDOEPHEDRINE-GUAIFENESIN 14361820285 Active Jillina Frazell [employer]INKL[employer]TER APPRENTICE Active PREDNISONE 20 MG TAB 2 tabs daily for 3 days, 1 t ab daily for 3 days, 1/2 tab daily for 2 days PREDNISONE 27008045823 No Longer Active Jillina Frazell SPRINKLER [employer]TER APPRENTICE Active AMOXICILLIN 500 MG CAPS 2 po BID x 10 days AMOX ICILLIN 96300996735 No Longer Active Jillina Frazell SPRINKLER [employer]TER APPRENTICE Active SINGULAIR 10 MG TABS 1 po qday for allergies 2 MONTELUKAST SODIUM 31795482994 No Longer Active Carlton Hu MD Acti ve LEVAQUIN 500 MG TAB 1 tablet by mouth daily LEV OFLOXACIN 57621247289 No Longer Active Carlton Hu MD Active FLUTICASONE PROPIONATE 50 MCG/ACT SUSP 2 sprays each n ostril daily for 2 weeks, then 1 spray each nostril daily. FLUTICASONE PRO PIONATE 63074855089 Active Elise Whitmore APRN Active ZITHROMAX 250 MG TAB 2 po today, then 1 po q days 2-5 AZITHROMYCIN 65748157817 No Longer Active Elise Whitmore APRN Acti ve XANAX 0.5 MG TABS one tablet by mouth daily prn anxiety ALPRAZOLAM 57389970715 Active Elise Whitmore APRN Active CYMBALTA 30 MG CPEP 1 cap by mouth daily for depression DULOXETINE HCL 25823790380 Active Carlton Hu MD Active CEFDINIR 300 MG CAPS 1 po BID x 10 days CEFDINI R 23669463327 No Longer Active Carlton Hu MD Active ZOCOR 40 MG TAB 1 tab by mouth daily SIMVASTATI N 76725979581 No Longer Active Carlton Hu MD Active CYCLOBENZAPRINE HCL 10 MG TABS 1 tablet by mouth BID prn had cherelle n CYCLOBENZAPRINE HCL 52249671606 No Longer Active Carlton Hu MD Active LEVOFLOXACIN 500 MG ORAL TABS 1 tab PO daily x 10 days LEVOFLOXACIN 62397519310 No Longer Active Carlton Hu MD Acti ve PREDNISONE 20 MG ORAL TABS 3 tab PO qd x 2d, 2 tab PO qd x 2d, 1 tab PO qd x 2d, 1/2 tab PO qd x 2d PREDNISONE 85017489190 No Longer Active Carlton Hu MD Active FLUTICASONE PROPIONATE 50 MCG/ACT SUSP 1 to 2 sprays each no stril daily FLUTICASONE PROPIONATE 57285453520 No Longer Active T jaz HERNANDEZ Active CHERATUSSIN AC 100-10 MG/5ML SYRP 1 tsp by mouth every 4 hours as needed for cough GUAIFENESIN-CODEINE 30902191274 No Longer Activ e Blaine HERNANDEZ Active PROMETHAZINE-CODEINE 6.25-10 MG/5ML SYRP 1 tsp by mout h every 6 hours if needed for cough PROMETHAZINE-CODEINE 65163707172 No Long er Active Blaine HERNANDEZ Active CHERATUSSIN AC 100-10 MG/5ML SYRP 1 tsp by mouth every 4 hours as needed for cough GUAIFENESIN-CODEINE 91505450887 No Longer Activ e Blaine HERNANDEZ Active ZITHROMAX Z-REYNA 250 MG TABS 2 today, then 1 daily for 4 days 201 08/30/03 AZITHROMYCIN 62209400178 No Longer Active Columba Raida Act nael ZITHROMAX 250 MG TAB 2 po today, then 1 po q days 2-5 AZITHROMYCIN 89563730603 No Longer Active Carlton Hu MD Acti ve ZITHROMAX Z-REYNA 250 MG TABS 2 today, then 1 daily for 4 days 201 08/07/20 AZITHROMYCIN 37692298498 No Longer Active Columba Raida Act nael AUGMENTIN 875-125 MG TAB 1 po BID x 10 days AMOXICILLIN- POT CLAVULANATE 87891407727 No Longer Active Diya Sernabrayan RICEN Active ZITHROMAX 250 MG TAB 2 po today, then 1 po q days 2-5 AZITHROMYCIN 02071670467 No Longer Active Carlton Hu MD Acti ve TRAMADOL HCL 50 MG TABS 1 po tid with ES Tylenol TRAMADOL HCL 16674382343 Active Carlton Hu MD Active PREMARIN 0.625 MG TABS TAKE 1 TAB BY MOUTH DAILY 07/25 ESTROGENS CONJUGATED 79820791144 No Longer Active Ridge Bess DO Active CYMBALTA 30 MG CPEP 1 cap by mouth daily DULOXE SNEHA HCL 78212557859 No Longer Active Ridge Bess DO Active AMOXICILLIN 500 MG CAP 1 tab by mouth 3 times daily x 10 days 20 14/04/28 AMOXICILLIN 25719719444 No Longer Active Carlton Hu MD Active AMOXICILLIN 500 MG CAP 1 tab by mouth 3 times daily x 10 days 20 13/03/08 AMOXICILLIN 43331646610 No Longer Active Carlton Hu MD Active PROMETHAZINE-CODEINE 6.25-10 MG/5ML SYRP 1 tsp by mouth ever y 8 hours prn cough PROMETHAZINE-CODEINE 96199462241 No Longer Active Robert Hu MD Active MEDROL (REYNA) 4 MG TABS 6 pills x 1 day, then 5 pill s x 1 day then 4 pills x 1 day, then 3 pills x 1 day, then 2 pills x 1 day, then 1 pill x 1 day, then stop METHYLPREDNISOLONE 24947132005 No Longer Active Parris Mora MD Active AZITHROMYCIN 250 MG TABS 2 po qd x 1 day, then 1 po qd x 4 days AZITHROMYCIN 61872470504 No Longer Active Perez Mora MD Active SYMBICORT 160-4.5 MCG/ACT AERO 2 puffs bid with rinse after 2011 BUDESONIDE-FORMOTEROL FUMARATE 28096586470 No Longer Active Perez Mora MD Active LYRICA 75 MG CAPS TAKE 1 CAPSULE BY MOUTH TWICE DAILY 2013 PREGABALIN 83133864102 No Longer Active Carlton Hu MD Active TOPAMAX 25 MG TABS 1 qHS x 1 week, then 1 BID x 1 week, then 1 qAM and 2 qHS x 1 week, then 2 BID (migraine prevention) TOPIRAMAT E 62612898407 No Longer Active Jerica FUENTES Active TOPAMAX 50 MG TABS take 1 tab po BID for migraines. 12/07/10 TOPIRAMATE 57876453708 No Longer Active Jerica Osei RMA Ac tive TOPAMAX 100 MG TABS Take 1 tablet po bid TOPIRAMATE 4999 6532226 Active Elise Whitmore APRN Active TRIAMCINOLONE ACETONIDE 0.1 % CREA apply three times daily prn r beatrice TRIAMCINOLONE ACETONIDE 38308850561 No Longer Active Carlton Hu MD Active PAXIL 40 MG TAB take 1 tab po qday for depression PAROXETINE HCL 31373981990 Active Elise Whitmore APRN Active CHERATUSSIN AC 100-10 MG/5ML SYRP 5ml po q6hr PRN Cough GUAIFENESIN-CODEINE 99218722516 No Longer Active Carlton Hu MD Active MEDROL (REYNA) 4 MG TABS 6 tabs on day 1, 5 tabs on d ay 2, 4 tabs on day 3, 3 tabs on day 4, 2 tabs on day 5, 1 tab on day 6 METHYLPREDNISOLONE 25372937533 No Longer Active Perez Mora MD Active AZITHROMYCIN 250 MG TABS 2 po qd x 1 day, then 1 po qd x 4 days AZITHROMYCIN 78128159711 No Longer Active Perez Mora MD Active PROPRANOLOL HCL 60 MG TABS 1 PO Q D PROPRANOL OL HCL 78643247693 No Longer Active Perez Mora MD Active CHERATUSSIN AC 100-10 MG/5ML SYRP take one tsp po Q 6hours prn c ough GUAIFENESIN-CODEINE 84558906019 No Longer Active Perez Means Active AUGMENTIN 875-125 MG TAB 1 tab by mouth twice daily with food 20 12/03/31 AMOXICILLIN-POT CLAVULANATE 94152031527 No Longer Active Chanel Mora MD Active CHERATUSSIN AC 100-10 MG/5ML SYRP 1 tsp by mouth every 4 hours as needed for cough GUAIFENESIN-CODEINE 61486531833 No Longer Activ e Hugo Restrepo MD Active ACETAMINOPHEN-CODEINE #3 300-30 MG TABS 1 PO Q 4-6 HRS PRN PAIN ACETAMINOPHEN-CODEINE 30018615557 No Longer Active Hugo Restrepo MD Active LEVAQUIN 500 MG TABS take one po QD LEVOFLOXACI N 56050142550 No Longer Active Griffin HERNANDEZ Active PREDNISONE 20 MG TAB Take 3 tabs daily for 3 days , 2 tabs daily for 3 days, 1 tab daily for 3 days, 1/2 tab daily for 3 days P REDNISONE 13633469325 No Longer Active Carlton Hu MD Active AVELOX 400 MG TABS 1 tab by mouth daily MOXIFLO XACIN HCL 79425661516 No Longer Active Carlton Hu MD Active CHERATUSSIN AC 100-10 MG/5ML SYRP 1 tsp by mouth every 4 hours as needed for cough GUAIFENESIN-CODEINE 56950648582 No Longer Activ e Hugo Restrepo MD Active AVELOX 400 MG TABS 1 tab by mouth daily MOXIFLO XACIN HCL 87376950605 No Longer Active Marcy De La Rosa MD PhD Active TERBINAFINE HCL 250 MG TABS 1 qDay TERBINAF INE HCL 17193369993 No Longer Active Marcy De La Rosa MD PhD Active CHERATUSSIN AC 100-10 MG/5ML SYRP 1 tsp by mouth every 4 hours as needed for cough GUAIFENESIN-CODEINE 75216306966 No Longer Activ e Marcy De La Rosa MD PhD Active AVELOX 400 MG TABS 1 tab by mouth daily MOXIFLO XACIN HCL 97874800363 No Longer Active Marcy De La Rosa MD PhD Active HYDROCODONE-ACETAMINOPHEN 5-325 MG TABS 1 po q 6hr PRN cough 201 05/09/16 HYDROCODONE-ACETAMINOPHEN 58038615655 No Longer Active Marcy De La Rosa MD PhD Active PREDNISONE 20 MG TAB 2 tabs daily for 3 days, 1 t ab daily for 3 days, 1/2 tab daily for 2 days PREDNISONE 84589011607 No Longer Active Carlton Hu MD Active CEFDINIR 300 MG CAPS by mouth twice a day CEFDI ODILIA 93047309830 No Longer Active Carlton Hu MD Active HYDROCHLOROTHIAZIDE 25 MG TABS 1 TAB PO DAILY H YDROCHLOROTHIAZIDE 76628234029 Active Carlton Hu MD Active ACETAMINOPHEN-CODEINE #3 300-30 MG TABS 1 tablet po q 4-6hrs prn pain ACETAMINOPHEN-CODEINE 23082783703 No Longer Active Ridge Bess DO Active ZITHROMAX 250 MG TAB 2 po today, then 1 po q days 2-5 AZITHROMYCIN 21662716518 No Longer Active Carlton Hu MD Acti ve CHERATUSSIN AC 100-10 MG/5ML SYRP take 1 tsp po q4-6 hours prn c ough GUAIFENESIN-CODEINE 34177032866 No Longer Active Carlton Hu MD Active ACETAMINOPHEN-CODEINE #3 300-30 MG TABS 1 PO Q 4-6 HR PRN PAIN 2 ACETAMINOPHEN-CODEINE 23800484129 No Longer Active Cralton rich MD Active LORTAB 7.5-500 MG/15ML ELIX 7.5 ml po q 4 hour prn cough HYDROCODONE-ACETAMINOPHEN 25227443461 No Longer Active Carlton Hu MD Active PREDNISONE 20 MG TAB 1 po bid 3 days, then 1 po q day 3 days 201 05/03/07 PREDNISONE 61362407533 No Longer Active Carlton Hu MD Active ELMIRON 100 MG CAPS 2 tablets in the am and 1 tablet at hs PENTOSAN POLYSULFATE SODIUM 71785579683 Active Carlton Hu MD Ac tive CEFDINIR 300 MG CAPS by mouth twice a day CEFDI ODILIA 51141605193 No Longer Active Carlton Hu MD Active CEFDINIR 300 MG CAPS by mouth twice a day CEFDI ODILIA 11977174279 No Longer Active Carlton Hu MD Active CEFDINIR 300 MG CAPS by mouth twice a day CEFDI ODILIA 21621774630 No Longer Active Carlton Hu MD Active TESSALON PERLES 100 MG CAP 1 tablet by mouth 3 times daily a s needed for cough BENZONATATE 97640177357 No Longer Active Carlton bustamante MD Active CEFDINIR 300 MG CAPS by mouth twice a day CEFDI ODILIA 00353529633 No Longer Active Carlton Hu MD Active ZITHROMAX Z-REYNA 250 MG TABS 2 today, then 1 daily for 4 days 201 04/09/17 AZITHROMYCIN 63643254386 No Longer Active Hugo Restrepo MD Active TESSALON PERLES 100 MG CAP 1 tablet by mouth 3 times daily a s needed for cough TESSALON PERLES 100 MG CAP 593720 BENZONATATE I nactive PREDNISONE 20 MG TAB 1 po bid 3 days, then 1 po q day 3 days 201 05/03/07 PREDNISONE 20 MG TAB 033489 PREDNISONE Inactive LORTAB 7.5-500 MG/15ML ELIX 7.5 ml po q 4 hour prn cough LORTAB 7.5-500 MG/15ML ELIX HYDROCODONE-ACETAMINOPHEN Inacti ve ACETAMINOPHEN-CODEINE #3 300-30 MG TABS 1 PO Q 4-6 HR PRN PAIN 2 ACETAMINOPHEN-CODEINE #3 300-30 MG TABS ACETAMIN OPHEN-CODEINE Inactive CHERATUSSIN AC 100-10 MG/5ML SYRP take 1 tsp po q4-6 hours prn c ough CHERATUSSIN AC 100-10 MG/5ML SYRP 625566 GUAIFENESIN-CO DEINE Inactive ACETAMINOPHEN-CODEINE #3 300-30 MG TABS 1 tablet po q 4-6hrs prn pain ACETAMINOPHEN-CODEINE #3 300-30 MG TABS ACETAMIN OPHEN-CODEINE Inactive HYDROCODONE-ACETAMINOPHEN 5-325 MG TABS 1 po q 6hr PRN cough 201 05/09/16 HYDROCODONE-ACETAMINOPHEN 5-325 MG TABS 428785 HYDROCODONE-ACETAMINOPHEN Inactive AVELOX 400 MG TABS 1 tab by mouth daily A VELOX 400 MG TABS 317166 MOXIFLOXACIN HCL Inactive CHERATUSSIN AC 100-10 MG/5ML SYRP 1 tsp by mouth every 4 hours as needed for cough CHERATUSSIN AC 100-10 MG/5ML SYRP 842698 GUAIFENESIN-CODEINE Inactive TERBINAFINE HCL 250 MG TABS 1 qDay TERBINAFINE HCL 250 MG TABS 833700 TERBINAFINE HCL Inactive CHERATUSSIN AC 100-10 MG/5ML SYRP 1 tsp by mouth every 4 hours as needed for cough CHERATUSSIN AC 100-10 MG/5ML SYRP 511141 GUAIFENESIN-CODEINE Inactive ACETAMINOPHEN-CODEINE #3 300-30 MG TABS 1 PO Q 4-6 HRS PRN PAIN ACETAMINOPHEN-CODEINE #3 300-30 MG TABS ACETAMINOPHEN-CODEIN E Inactive CHERATUSSIN AC 100-10 MG/5ML SYRP 1 tsp by mouth every 4 hours as needed for cough CHERATUSSIN AC 100-10 MG/5ML SYRP 788236 GUAIFENESIN-CODEINE Inactive AUGMENTIN 875-125 MG TAB 1 tab by mouth twice daily with food 20 12/03/31 AUGMENTIN 875-125 MG TAB 216498 AMOXICILLIN-POT CLAVULA EFE Inactive CHERATUSSIN AC 100-10 MG/5ML SYRP take one tsp po Q 6hours prn c ough CHERATUSSIN AC 100-10 MG/5ML SYRP 081458 GUAIFENESIN-CO DEINE Inactive PROPRANOLOL HCL 60 MG TABS 1 PO Q D P ROPRANOLOL HCL 60 MG TABS 919112 PROPRANOLOL HCL Inactive TOPAMAX 50 MG TABS take 1 tab po BID for migraines. 12/07/10 TOPAMAX 50 MG TABS 695462 TOPIRAMATE Inactive TOPAMAX 25 MG TABS 1 qHS x 1 week, then 1 BID x 1 week, then 1 qAM and 2 qHS x 1 week, then 2 BID (migraine prevention) TOPAMAX 2 5 MG TABS 119776 TOPIRAMATE Inactive LYRICA 75 MG CAPS TAKE 1 CAPSULE BY MOUTH TWICE DAILY LYRICA 75 MG CAPS PREGABALIN Inactive SYMBICORT 160-4.5 MCG/ACT AERO 2 puffs bid with rinse after 2011 SYMBICORT 160-4.5 MCG/ACT AERO BUDESONIDE-FORMOT SÁNCHEZ FUMARATE Inactive PROMETHAZINE-CODEINE 6.25-10 MG/5ML SYRP 1 tsp by mouth ever y 8 hours prn cough PROMETHAZINE-CODEINE 6.25-10 MG/5ML SYRP 877511 PROMETHAZINE-CODEINE Inactive CYMBALTA 30 MG CPEP 1 cap by mouth daily CYMBALTA 30 MG CPEP 287519 DULOXETINE HCL Inactive PREMARIN 0.625 MG TABS TAKE 1 TAB BY MOUTH DAILY 07/25 PREMARIN 0.625 MG TABS ESTROGENS CONJUGATED Inactive CHERATUSSIN AC 100-10 MG/5ML SYRP 1 tsp by mouth every 4 hours as needed for cough CHERATUSSIN AC 100-10 MG/5ML SYRP 738246 GUAIFENESIN-CODEINE Inactive PROMETHAZINE-CODEINE 6.25-10 MG/5ML SYRP 1 tsp by mout h every 6 hours if needed for cough PROMETHAZINE-CODEINE 6.25-10 MG/5ML SYRP 070273 PROMETHAZINE-CODEINE Inactive CHERATUSSIN AC 100-10 MG/5ML SYRP 1 tsp by mouth every 4 hours as needed for cough CHERATUSSIN AC 100-10 MG/5ML SYRP 845894 GUAIFENESIN-CODEINE Inactive FLUTICASONE PROPIONATE 50 MCG/ACT SUSP 1 to 2 sprays each no stril daily FLUTICASONE PROPIONATE 50 MCG/ACT SUSP 8832394 FLUTICASONE PROPIONATE Inactive PREDNISONE 20 MG ORAL TABS 3 tab PO qd x 2d, 2 tab PO qd x 2d, 1 tab PO qd x 2d, 1/2 tab PO qd x 2d PREDNISONE 20 MG ORAL TABS 926811 PREDNISONE Inactive LEVOFLOXACIN 500 MG ORAL TABS 1 tab PO daily x 10 days LEVOFLOXACIN 500 MG ORAL TABS 386460 LEVOFLOXACIN Inactive CYCLOBENZAPRINE HCL 10 MG TABS 1 tablet by mouth BID prn had cherelle n CYCLOBENZAPRINE HCL 10 MG TABS 619212 CYCLOBENZAPRINE H CL Inactive ZOCOR 40 MG TAB 1 tab by mouth daily ZOCOR 40 M G TAB 294361 SIMVASTATIN Inactive TUSSIONEX PENNKINETIC ER 10-8 MG/5ML [...] empty FLUTICASONE PROPIONATE 50 MCG/ACT SUSP 17 08448 FLUTICASONE PROPIONATE Inactive TUSSIONEX PENNKINETIC ER 10-8 [...] 201 04/09/17 ZITHROMAX Z-REYNA 250 MG TABS 7453158 AZITHROMYCIN Inac tive CEFDINIR 300 MG CAPS by mouth twice a day CEFDINIR 300 MG CAPS 20020704 CEFDINIR Inactive CEFDINIR 300 MG CAPS by mouth twice a day CEFDINIR 300 MG CAPS 20020704 CEFDINIR Inactive CEFDINIR 300 MG CAPS by mouth twice a day CEFDINIR 300 MG CAPS 635173 CEFDINIR Inactive CEFDINIR 300 MG CAPS by mouth twice a day CEFDINIR 300 MG CAPS 20020704 CEFDINIR Inactive ZITHROMAX 250 MG TAB 2 po today, then 1 po q days 2-5 ZITHROMAX 250 MG TAB 0010582 AZITHROMYCIN Inactive CEFDINIR 300 MG CAPS by mouth twice a day CEFDINIR 300 MG CAPS 523670 CEFDINIR Inactive PREDNISONE 20 MG TAB 2 tabs daily for 3 days, 1 t ab daily for 3 days, 1/2 tab daily for 2 days PREDNISONE 20 MG TAB 173756 PREDNISON E Inactive AVELOX 400 MG TABS 1 tab by mouth daily A VELOX 400 MG TABS 324523 MOXIFLOXACIN HCL Inactive AVELOX 400 MG TABS 1 tab by mouth daily A VELOX 400 MG TABS 295502 MOXIFLOXACIN HCL Inactive PREDNISONE 20 MG TAB Take 3 tabs daily for 3 days , 2 tabs daily for 3 days, 1 tab daily for 3 days, 1/2 tab daily for 3 days PREDNISONE 20 MG TAB 184593 PREDNISONE Inactive LEVAQUIN 500 MG TABS take one po QD LEVAQUIN 50 0 MG TABS 278189 LEVOFLOXACIN Inactive AZITHROMYCIN 250 MG TABS 2 po qd x 1 day, then 1 po qd x 4 days AZITHROMYCIN 250 MG TABS 0830175 AZITHROMYCIN Inactiv e MEDROL (REYNA) 4 MG TABS 6 tabs on day 1, 5 tabs on d ay 2, 4 tabs on day 3, 3 tabs on day 4, 2 tabs on day 5, 1 tab on day 6 MEDROL (REYNA) 4 MG TABS 071551 METHYLPREDNISOLONE Inactive CHERATUSSIN AC 100-10 MG/5ML SYRP 5ml po q6hr PRN Cough CHERATUSSIN AC 100-10 MG/5ML SYRP 396833 GUAIFENESIN-CODEINE Inacti ve TRIAMCINOLONE ACETONIDE 0.1 % CREA apply three times daily prn r beatrice TRIAMCINOLONE ACETONIDE 0.1 % CREA 7959967 TRIAMCINOLONE ACETONIDE Inactive AZITHROMYCIN 250 MG TABS 2 po qd x 1 day, then 1 po qd x 4 days AZITHROMYCIN 250 MG TABS 5686249 AZITHROMYCIN Inactiv e MEDROL (REYNA) 4 MG TABS 6 pills x 1 day, then 5 pill s x 1 day then 4 pills x 1 day, then 3 pills x 1 day, then 2 pills x 1 day, then 1 pill x 1 day, then stop MEDROL (REYNA) 4 MG TABS 961805 METHYLPREDNISOLONE Inactive AMOXICILLIN 500 MG CAP 1 tab by mouth 3 times daily x 10 days 20 13/03/08 AMOXICILLIN 500 MG CAP 823224 AMOXICILLIN Inactive AMOXICILLIN 500 MG CAP 1 tab by mouth 3 times daily x 10 days 20 14/04/28 AMOXICILLIN 500 MG CAP 380188 AMOXICILLIN Inactive ZITHROMAX 250 MG TAB 2 po today, then 1 po q days 2-5 ZITHROMAX 250 MG TAB 2660050 AZITHROMYCIN Inactive AUGMENTIN 875-125 MG TAB 1 po BID x 10 days AUGMENTIN 875- 125 MG TAB 723967 AMOXICILLIN-POT CLAVULANATE Inactive ZITHROMAX Z-REYNA 250 MG TABS 2 today, then 1 daily for 4 days 201 08/07/20 ZITHROMAX Z-REYNA 250 MG TABS 8209705 AZITHROMYCIN Inac tive ZITHROMAX 250 MG TAB 2 po today, then 1 po q days 2-5 ZITHROMAX 250 MG TAB 4447428 AZITHROMYCIN Inactive ZITHROMAX Z-REYNA 250 MG TABS 2 today, then 1 daily for 4 days 201 08/30/03 ZITHROMAX Z-REYNA 250 MG TABS 8959666 AZITHROMYCIN Inac tive CEFDINIR 300 MG CAPS 1 po BID x 10 days C EFDINIR 300 MG CAPS 541382 CEFDINIR Inactive ZITHROMAX 250 MG TAB 2 po today, then 1 po q days 2-5 ZITHROMAX 250 MG TAB 6701932 AZITHROMYCIN Inactive LEVAQUIN 500 MG TAB 1 tablet by mouth daily LEVAQUIN 500 MG TAB 365609 LEVOFLOXACIN Inactive SINGULAIR 10 MG TABS 1 po qday for allergies 2 SINGULAIR 10 MG TABS 20010504 MONTELUKAST SODIUM Inactive AMOXICILLIN 500 MG CAPS 2 po BID x 10 days AMOXICILLIN 500 MG CAPS 797189 AMOXICILLIN Inactive PREDNISONE 20 MG TAB 2 tabs daily for 3 days, 1 t ab daily for 3 days, 1/2 tab daily for 2 days PREDNISONE 20 MG TAB 419265 PREDNISON E Inactive ZITHROMAX Z-REYNA 250 MG TABS 2 today, then 1 daily for 4 days 201 09/29/14 ZITHROMAX Z-REYNA 250 MG TABS 9746259 AZITHROMYCIN Inac tive PREDNISONE 20 MG TAB 2 tabs daily for 3 days, 1 t ab daily for 3 days, 1/2 tab daily for 2 days PREDNISONE 20 MG TAB 059734 PREDNISON E Inactive Vital Signs Date Name [...] Negative Encounters Code Encounter Date Provider Facility CPT-74127 Level 3 Est. Patient 12:17:50 CDT Hugo Restrepo MD [facility] CPT-62695 Level 3 Est. Patient 13:42:38 CDT Italo [facility] CPT-80115 Level 3 Est. Patient 13:23:51 CDT Diya cobian [facility] CPT-17766 Level 3 Est. Patient 14:22:19 RN HEMATOLOGY Diya cobian [facility] CPT-82178 Level 3 Est. Patient 10:11:46 CDT Carlton rich MD [facility] CPT-33708 Level 3 Est. Patient 17:29:43 CDT Italo [facility]-96503 Level 3 Est. Patient 11:58:06 CDT Italo [facility] CPT-11487 Level 4 Est. Patient 14:36:51 CDT Carlton rich MD [facility]-38730 Level 3 Est. Patient 18:16:00 RN HEMATOLOGY Blaine Freeman [facility] CPT-19770 Level 3 Est. Patient 09:45:49 RN HEMATOLOGY Carlton rich MD [facility]-34687 Level 3 Est. Patient 13:19:20 CDT Carlton rich MD [facility]-40997 Level 3 Est. Patient 13:06:43 CDT Ridge tam DO [facility] CPT-75783 Level 3 Est. Patient 10:03:07 CDT Perez Mora MD [facility]-53381 Level 3 Est. Patient 19:50:35 RN HEMATOLOGY Carlton rich MD [facility] CPT-76021 Level 4 Est. Patient 18:05:01 RN HEMATOLOGY Carlton rich MD [facility] CPT-79843 Level 3 Est. Patient 10:45:55 RN HEMATOLOGY Hugo Restrepo MD [facility] CPT-95063 Level 3 Est. Patient 14:12:49 CDT Griffin lincoln [facility]-39224 Level 3 Est. Patient 17:37:24 CDT Carlton rich MD [facility]-64120 Level 3 Est. Patient 16:51:54 CDT Carlton rich MD [facility]-68705 Level 3 Est. Patient 12:18:11 CDT Hugo Restrepo MD [facility]-13935 Level 3 Est. Patient 11:30:25 CDT Marcy crisostomo MD PhD [facility] CPT-02263 Level 3 Est. Patient 12:00:47 RN HEMATOLOGY Carlton rich MD [facility] CPT-51066 Level 3 Est. Patient 16:31:06 RN HEMATOLOGY Carlton rich MD [facility] CPT-48599 Level 3 Est. Patient 16:23:24 RN HEMATOLOGY Ridge tam [facility] CPT-85078 Level 3 Est. Patient 12:34:12 CDT Carlton rich MD [facility] CPT-59500 Level 2 Est. Patient 15:43:33 CDT Robi armstrong MD [facility] CPT-54692 Level 4 Est. Patient 14:04:44 CDT Carlton rich MD [facility] CPT-75337 Level 3 Est. Patient 05:47:59 CDT Ridge tam [facility] CPT-63772 Level 3 Est. Patient 13:12:53 RN HEMATOLOGY Carlton rich MD [facility] CPT-90037 Level 3 Est. Patient 14:26:53 CDT Hugo Restrepo MD [facility] Procedures Code Procedure Name Date Entry Date Standard Desc ription CPT-J0696 Rocephin 1gm Inj Solr 14:32:13 CDT CPT-J1020 Depo Medrol 60 mg (Methyl Prednisolone A cetate) 14:32:13 CDT CPT-J1100 Decadron 6mg (Dexamethasone) 14:32:13 CDT 2 CPT-00089 Hip bilat min 2V w AP pelvis 13:16:20 CDT 2 CPT-07922 Pelvis only 13:07:33 CDT CPT-49064 Spec Collection and Handling Fee 11:25:12 C DT CPT-59987 Fluzone Quadrivalent Intramuscular Suspe nsion 0.5 ML 14:31:55 CDT CPT-08920 Abx/Therapy Injection 13:28:47 RN HEMATOLOGY CPT-J2930 Solu Medrol 125 mg (Methyl Prednisolone Sodium Succinate) 12:00:47 RN HEMATOLOGY CPT-55832 Venipuncture Draw Fee 11:33:31 CDT CPT-61508 EKG Trac and Interp 11:21:09 CDT CPT-77812 Chest 2V Frontal and Lat 11:21:09 CDT 12/15 CPT-32771 Venipuncture Draw Fee 08:02:34 CDT CPT-43305 Chest 2V Frontal and Lat 05:47:59 CDT 06/05
--- OUTSIDE RECORDS SUMMARY | 2019-10-08 08:13 | XMS REPORT | Clinical Summary ---
Author Author Caitlin, Juliana Martinez Organization [facility] [facility] Address Unknown Phone Unavailable Allergies, Adverse [...] unspecified CHEST WALL PAIN, ACUTE 786.52 Resolved iLv De La Rosa MD PhD Painful respiration [...] Hugo Restrepo MD Bronchitis ICD-490 Inactive Hugo Retsrepo MD 201 10/02/29 Medication List Medication Instructions Start Date Stop Date Generic Name NDC Status Provider Patient Instruction MONTELUKAST SODIUM 10 MG ORAL TABS 1 po daily for Allergy 6 MONTELUKAST SODIUM [id number] Active ALFREDO Holly Act nael TUSSIONEX PENNKINETIC ER 10-8 MG/5ML LQCR 5 ml twice a day a s needed for cough HYDROCOD POLST-CHLORPHEN POLST 91276275108 Active Hugo Restrepo MD Active TUSSIONEX PENNKINETIC ER 10-8 MG/5ML LQCR 5ml po q12hr PRN Cough HYDROCOD POLST-CHLORPHEN POLST 83778714327 No Longer Active Hugo Restrepo MD Active GABAPENTIN 100 MG CAPS 1 po BID for fibromyalgia GABAPENTIN 81895718380 Active Elise Whitmore APRN Active LYRICA 100 MG CAPS Take 1 tab po BID for fibromyalgia PREGABALIN 00762297753 No Longer Active Elise Whitmore APRN Acti ve PROAIR HFA 108 (90 BASE) MCG/ACT AERS 2 puffs four times a d ay as needed ALBUTEROL SULFATE 11254230343 Active Diya De Guzman APR N Active MUCINEX DM MAXIMUM STRENGTH 60-1200 MG [id number] 1 tab po q am 2016 DEXTROMETHORPHAN-GUAIFENESIN 89933003512 Active Diya De Guzman GEAR REPAIRER Active PREDNISONE 20 MG TAB 2 tabs daily for 3 days, 1 t ab daily for 3 days, 1/2 tab daily for 2 days PREDNISONE 42587317101 No Longer Active Diya De Guzman GEAR REPAIRER Active TUSSIONEX PENNKINETIC ER 10-8 MG/5ML ORAL LQCR 5 mL PO q 12 hrs PRN cough HYDROCOD POLST-CHLORPHEN POLST 70407777381 No Longer Active Diya Guerrerol GEAR REPAIRER Active FLUTICASONE PROPIONATE 50 MCG/ACT SUSP 2 sprays each n ostril daily until bottle is empty FLUTICASONE PROPIONATE 02931407557 No Longer Ac tive Venullshakira Guerrerol GEAR REPAIRER Active ASMANEX 60 METERED DOSES 220 MCG/INH AEPB 1 puff bid with ri nse after MOMETASONE FUROATE 69720397808 No Longer Active Diya meneses GEAR REPAIRER Active ZITHROMAX Z-REYNA 250 MG TABS 2 today, then 1 daily for 4 days 201 09/29/14 AZITHROMYCIN 74362578998 No Longer Active Elise Whitmore APRN Active TUSSIONEX PENNKINETIC ER 10-8 MG/5ML LQCR 5ml po q12hr PRN Cough HYDROCOD POLST-CHLORPHEN POLST 86745269672 No Longer Active Elise Whitmore APRN Active MUCINEX D 60-600 MG [id number] 1 tab po q am PSEUDOEPHEDRINE-GUAIFENESIN 96777102497 Active Jillina Frazell GEAR REPAIRER Active PREDNISONE 20 MG TAB 2 tabs daily for 3 days, 1 t ab daily for 3 days, 1/2 tab daily for 2 days PREDNISONE 76259975085 No Longer Active Jillina Frazell GEAR REPAIRER Active AMOXICILLIN 500 MG CAPS 2 po BID x 10 days AMOX ICILLIN 87310237649 No Longer Active Jillina Frazell GEAR REPAIRER Active SINGULAIR 10 MG TABS 1 po qday for allergies 2 MONTELUKAST SODIUM 73675458417 No Longer Active Carlton Hu MD Acti ve LEVAQUIN 500 MG TAB 1 tablet by mouth daily LEV OFLOXACIN 48933514008 No Longer Active Carlton Hu MD Active FLUTICASONE PROPIONATE 50 MCG/ACT SUSP 2 sprays each n ostril daily for 2 weeks, then 1 spray each nostril daily. FLUTICASONE PRO PIONATE 40982288397 Active Elise Whitmore APRN Active ZITHROMAX 250 MG TAB 2 po today, then 1 po q days 2-5 AZITHROMYCIN 95343658719 No Longer Active Elise Whitmore APRN Acti ve XANAX 0.5 MG TABS one tablet by mouth daily prn anxiety ALPRAZOLAM 07506311966 Active Elise Whitmore APRN Active CYMBALTA 30 MG CPEP 1 cap by mouth daily for depression DULOXETINE HCL 67135944046 Active Carlton Hu MD Active CEFDINIR 300 MG CAPS 1 po BID x 10 days CEFDINI R 37103373643 No Longer Active Carlton Hu MD Active ZOCOR 40 MG TAB 1 tab by mouth daily SIMVASTATI N 26342526786 No Longer Active Carlton Hu MD Active CYCLOBENZAPRINE HCL 10 MG TABS 1 tablet by mouth BID prn had cherelle n CYCLOBENZAPRINE HCL 40495865773 No Longer Active Carlton Hu MD Active LEVOFLOXACIN 500 MG ORAL TABS 1 tab PO daily x 10 days LEVOFLOXACIN 92532915482 No Longer Active Carlton Hu MD Acti ve PREDNISONE 20 MG ORAL TABS 3 tab PO qd x 2d, 2 tab PO qd x 2d, 1 tab PO qd x 2d, 1/2 tab PO qd x 2d PREDNISONE 53473232502 No Longer Active Carlton Hu MD Active FLUTICASONE PROPIONATE 50 MCG/ACT SUSP 1 to 2 sprays each no stril daily FLUTICASONE PROPIONATE 12541933585 No Longer Active T jaz HERNANDEZ Active CHERATUSSIN AC 100-10 MG/5ML SYRP 1 tsp by mouth every 4 hours as needed for cough GUAIFENESIN-CODEINE 12528742182 No Longer Activ e Blaine HERNANDEZ Active PROMETHAZINE-CODEINE 6.25-10 MG/5ML SYRP 1 tsp by mout h every 6 hours if needed for cough PROMETHAZINE-CODEINE 36314289321 No Long er Active Blaine HERNANDEZ Active CHERATUSSIN AC 100-10 MG/5ML SYRP 1 tsp by mouth every 4 hours as needed for cough GUAIFENESIN-CODEINE 74144183973 No Longer Activ e Blaine HERNANDEZ Active ZITHROMAX Z-REYNA 250 MG TABS 2 today, then 1 daily for 4 days 201 08/30/03 AZITHROMYCIN 40060611018 No Longer Active Columba Raida Act nael ZITHROMAX 250 MG TAB 2 po today, then 1 po q days 2-5 AZITHROMYCIN 35942979522 No Longer Active Carlton Hu MD Acti ve ZITHROMAX Z-REYNA 250 MG TABS 2 today, then 1 daily for 4 days 201 08/07/20 AZITHROMYCIN 38067896267 No Longer Active Columba Raida Act nael AUGMENTIN 875-125 MG TAB 1 po BID x 10 days AMOXICILLIN- POT CLAVULANATE 02579167262 No Longer Active Diya Sernabrayan RICEN Active ZITHROMAX 250 MG TAB 2 po today, then 1 po q days 2-5 AZITHROMYCIN 55661225603 No Longer Active Carlton Hu MD Acti ve TRAMADOL HCL 50 MG TABS 1 po tid with ES Tylenol TRAMADOL HCL 55822197735 Active Carlton Hu MD Active PREMARIN 0.625 MG TABS TAKE 1 TAB BY MOUTH DAILY 07/25 ESTROGENS CONJUGATED 71960830697 No Longer Active Ridge Bess DO Active CYMBALTA 30 MG CPEP 1 cap by mouth daily DULOXE SNEHA HCL 38563138396 No Longer Active Ridge Bess DO Active AMOXICILLIN 500 MG CAP 1 tab by mouth 3 times daily x 10 days 20 14/04/28 AMOXICILLIN 12623642507 No Longer Active Carlton Hu MD Active AMOXICILLIN 500 MG CAP 1 tab by mouth 3 times daily x 10 days 20 13/03/08 AMOXICILLIN 32691772844 No Longer Active Carlton Hu MD Active PROMETHAZINE-CODEINE 6.25-10 MG/5ML SYRP 1 tsp by mouth ever y 8 hours prn cough PROMETHAZINE-CODEINE 55276305381 No Longer Active Robert Hu MD Active MEDROL (REYNA) 4 MG TABS 6 pills x 1 day, then 5 pill s x 1 day then 4 pills x 1 day, then 3 pills x 1 day, then 2 pills x 1 day, then 1 pill x 1 day, then stop METHYLPREDNISOLONE 76573071804 No Longer Active Parris Mora MD Active AZITHROMYCIN 250 MG TABS 2 po qd x 1 day, then 1 po qd x 4 days AZITHROMYCIN 10385230525 No Longer Active Perez Mora MD Active SYMBICORT 160-4.5 MCG/ACT AERO 2 puffs bid with rinse after 2011 BUDESONIDE-FORMOTEROL FUMARATE 21175141696 No Longer Active Perez Mora MD Active LYRICA 75 MG CAPS TAKE 1 CAPSULE BY MOUTH TWICE DAILY 2013 PREGABALIN 02404556796 No Longer Active Carlton Hu MD Active TOPAMAX 25 MG TABS 1 qHS x 1 week, then 1 BID x 1 week, then 1 qAM and 2 qHS x 1 week, then 2 BID (migraine prevention) TOPIRAMAT E 62031803112 No Longer Active Jerica AGUILARA Active TOPAMAX 50 MG TABS take 1 tab po BID for migraines. 12/07/10 TOPIRAMATE 14857584460 No Longer Active Jerica Osei RMA Ac tive TOPAMAX 100 MG TABS Take 1 tablet po bid TOPIRAMATE 4999 0280300 Active Elise Whitmore APRN Active TRIAMCINOLONE ACETONIDE 0.1 % CREA apply three times daily prn r beatrice TRIAMCINOLONE ACETONIDE 29895951431 No Longer Active Carlton Hu MD Active PAXIL 40 MG TAB take 1 tab po qday for depression PAROXETINE HCL 51979613641 Active Elise Whitmore APRN Active CHERATUSSIN AC 100-10 MG/5ML SYRP 5ml po q6hr PRN Cough GUAIFENESIN-CODEINE 50940050361 No Longer Active Carlton Hu MD Active MEDROL (REYNA) 4 MG TABS 6 tabs on day 1, 5 tabs on d ay 2, 4 tabs on day 3, 3 tabs on day 4, 2 tabs on day 5, 1 tab on day 6 METHYLPREDNISOLONE 53403172390 No Longer Active Perez Mora MD Active AZITHROMYCIN 250 MG TABS 2 po qd x 1 day, then 1 po qd x 4 days AZITHROMYCIN 40554898769 No Longer Active Perez Mora MD Active PROPRANOLOL HCL 60 MG TABS 1 PO Q D PROPRANOL OL HCL 13686374498 No Longer Active Perez Mora MD Active CHERATUSSIN AC 100-10 MG/5ML SYRP take one tsp po Q 6hours prn c ough GUAIFENESIN-CODEINE 04004165639 No Longer Active Perez Means Active AUGMENTIN 875-125 MG TAB 1 tab by mouth twice daily with food 20 12/03/31 AMOXICILLIN-POT CLAVULANATE 37388124794 No Longer Active Chanel Mora MD Active CHERATUSSIN AC 100-10 MG/5ML SYRP 1 tsp by mouth every 4 hours as needed for cough GUAIFENESIN-CODEINE 38658493784 No Longer Activ e Hugo Restrepo MD Active ACETAMINOPHEN-CODEINE #3 300-30 MG TABS 1 PO Q 4-6 HRS PRN PAIN ACETAMINOPHEN-CODEINE 89476541717 No Longer Active Hugo Restrepo MD Active LEVAQUIN 500 MG TABS take one po QD LEVOFLOXACI N 53274509122 No Longer Active Griffin HERNANDEZ Active PREDNISONE 20 MG TAB Take 3 tabs daily for 3 days , 2 tabs daily for 3 days, 1 tab daily for 3 days, 1/2 tab daily for 3 days P REDNISONE 21944453240 No Longer Active Carlton Hu MD Active AVELOX 400 MG TABS 1 tab by mouth daily MOXIFLO XACIN HCL 42205891126 No Longer Active Carlton Hu MD Active CHERATUSSIN AC 100-10 MG/5ML SYRP 1 tsp by mouth every 4 hours as needed for cough GUAIFENESIN-CODEINE 38454715952 No Longer Activ e Hugo Restrepo MD Active AVELOX 400 MG TABS 1 tab by mouth daily MOXIFLO XACIN HCL 21810777998 No Longer Active Marcy De La Rosa MD PhD Active TERBINAFINE HCL 250 MG TABS 1 qDay TERBINAF INE HCL 33686486301 No Longer Active Marcy De La Rosa MD PhD Active CHERATUSSIN AC 100-10 MG/5ML SYRP 1 tsp by mouth every 4 hours as needed for cough GUAIFENESIN-CODEINE 52054893666 No Longer Activ e Marcy De La Rosa MD PhD Active AVELOX 400 MG TABS 1 tab by mouth daily MOXIFLO XACIN HCL 50563739705 No Longer Active Marcy De La Rosa MD PhD Active HYDROCODONE-ACETAMINOPHEN 5-325 MG TABS 1 po q 6hr PRN cough 201 05/09/16 HYDROCODONE-ACETAMINOPHEN 02615489422 No Longer Active Marcy De La Rosa MD PhD Active PREDNISONE 20 MG TAB 2 tabs daily for 3 days, 1 t ab daily for 3 days, 1/2 tab daily for 2 days PREDNISONE 44338596793 No Longer Active Carlton Hu MD Active CEFDINIR 300 MG CAPS by mouth twice a day CEFDI ODILIA 75544427146 No Longer Active Carlton Hu MD Active HYDROCHLOROTHIAZIDE 25 MG TABS 1 TAB PO DAILY H YDROCHLOROTHIAZIDE 65584268484 Active Carlton Hu MD Active ACETAMINOPHEN-CODEINE #3 300-30 MG TABS 1 tablet po q 4-6hrs prn pain ACETAMINOPHEN-CODEINE 67962738881 No Longer Active Ridge Bess DO Active ZITHROMAX 250 MG TAB 2 po today, then 1 po q days 2-5 AZITHROMYCIN 52015002374 No Longer Active Carlton Hu MD Acti ve CHERATUSSIN AC 100-10 MG/5ML SYRP take 1 tsp po q4-6 hours prn c ough GUAIFENESIN-CODEINE 66937958407 No Longer Active Carlton Hu MD Active ACETAMINOPHEN-CODEINE #3 300-30 MG TABS 1 PO Q 4-6 HR PRN PAIN 2 ACETAMINOPHEN-CODEINE 86545922062 No Longer Active Carlton rich MD Active LORTAB 7.5-500 MG/15ML ELIX 7.5 ml po q 4 hour prn cough HYDROCODONE-ACETAMINOPHEN 84142498448 No Longer Active Carlton Hu MD Active PREDNISONE 20 MG TAB 1 po bid 3 days, then 1 po q day 3 days 201 05/03/07 PREDNISONE 88719165360 No Longer Active Carlton Hu MD Active ELMIRON 100 MG CAPS 2 tablets in the am and 1 tablet at hs PENTOSAN POLYSULFATE SODIUM 03386743083 Active Carlton Hu MD Ac tive CEFDINIR 300 MG CAPS by mouth twice a day CEFDI ODILIA 00045993869 No Longer Active Carlton Hu MD Active CEFDINIR 300 MG CAPS by mouth twice a day CEFDI ODILIA 02649288215 No Longer Active Carlton Hu MD Active CEFDINIR 300 MG CAPS by mouth twice a day CEFDI ODILIA 92432550617 No Longer Active Carlton Hu MD Active TESSALON PERLES 100 MG CAP 1 tablet by mouth 3 times daily a s needed for cough BENZONATATE 64249997542 No Longer Active Carlton bustamante MD Active CEFDINIR 300 MG CAPS by mouth twice a day CEFDI ODILIA 02932998013 No Longer Active Carlton Hu MD Active ZITHROMAX Z-REYNA 250 MG TABS 2 today, then 1 daily for 4 days 201 04/09/17 AZITHROMYCIN 66783155200 No Longer Active Hugo Restrepo MD Active AMOXICILLIN 500 MG CAP 1 tab by mouth 3 times daily x 10 days 20 13/03/08 AMOXICILLIN 500 MG CAP 579790 AMOXICILLIN Inactive AMOXICILLIN 500 MG CAP 1 tab by mouth 3 times daily x 10 days 20 14/04/28 AMOXICILLIN 500 MG CAP 704765 AMOXICILLIN Inactive AMOXICILLIN 500 MG CAPS 2 po BID x 10 days AMOXICILLIN 500 MG CAPS 607470 AMOXICILLIN Inactive CHERATUSSIN AC 100-10 MG/5ML SYRP 5ml po q6hr PRN Cough CHERATUSSIN AC 100-10 MG/5ML SYRP 709633 GUAIFENESIN-CODEINE Inacti ve CHERATUSSIN AC 100-10 MG/5ML SYRP take 1 tsp po q4-6 hours prn c ough CHERATUSSIN AC 100-10 MG/5ML SYRP 722648 GUAIFENESIN-CO DEINE Inactive CHERATUSSIN AC 100-10 MG/5ML SYRP 1 tsp by mouth every 4 hours as needed for cough CHERATUSSIN AC 100-10 MG/5ML SYRP 429552 GUAIFENESIN-CODEINE Inactive CHERATUSSIN AC 100-10 MG/5ML SYRP 1 tsp by mouth every 4 hours as needed for cough CHERATUSSIN AC 100-10 MG/5ML SYRP 530690 GUAIFENESIN-CODEINE Inactive CHERATUSSIN AC 100-10 MG/5ML SYRP 1 tsp by mouth every 4 hours as needed for cough CHERATUSSIN AC 100-10 MG/5ML SYRP 025422 GUAIFENESIN-CODEINE Inactive CHERATUSSIN AC 100-10 MG/5ML SYRP take one tsp po Q 6hours prn c ough CHERATUSSIN AC 100-10 MG/5ML SYRP 128852 GUAIFENESIN-CO DEINE Inactive CHERATUSSIN AC 100-10 MG/5ML SYRP 1 tsp by mouth every 4 hours as needed for cough CHERATUSSIN AC 100-10 MG/5ML SYRP 368737 GUAIFENESIN-CODEINE Inactive CHERATUSSIN AC 100-10 MG/5ML SYRP 1 tsp by mouth every 4 hours as needed for cough CHERATUSSIN AC 100-10 MG/5ML SYRP 105131 GUAIFENESIN-CODEINE Inactive CYCLOBENZAPRINE HCL 10 MG TABS 1 tablet by mouth BID prn had cherelle n CYCLOBENZAPRINE HCL 10 MG TABS 354408 CYCLOBENZAPRINE H CL Inactive PREDNISONE 20 MG ORAL TABS 3 tab PO qd x 2d, 2 tab PO qd x 2d, 1 tab PO qd x 2d, 1/2 tab PO qd x 2d PREDNISONE 20 MG ORAL TABS 558164 PREDNISONE Inactive PREDNISONE 20 MG TAB 1 po bid 3 days, then 1 po q day 3 days 201 05/03/07 PREDNISONE 20 MG TAB 958026 PREDNISONE Inactive PREDNISONE 20 MG TAB Take 3 tabs daily for 3 days , 2 tabs daily for 3 days, 1 tab daily for 3 days, 1/2 tab daily for 3 days PREDNISONE 20 MG TAB 144581 PREDNISONE Inactive PREDNISONE 20 MG TAB 2 tabs daily for 3 days, 1 t ab daily for 3 days, 1/2 tab daily for 2 days PREDNISONE 20 MG TAB 013486 PREDNISON E Inactive PREDNISONE 20 MG TAB 2 tabs daily for 3 days, 1 t ab daily for 3 days, 1/2 tab daily for 2 days PREDNISONE 20 MG TAB 762533 PREDNISON E Inactive PREDNISONE 20 MG TAB 2 tabs daily for 3 days, 1 t ab daily for 3 days, 1/2 tab daily for 2 days PREDNISONE 20 MG TAB 984650 PREDNISON E Inactive PREMARIN 0.625 MG TABS TAKE 1 TAB BY MOUTH DAILY 07/25 PREMARIN 0.625 MG TABS ESTROGENS CONJUGATED Inactive PROMETHAZINE-CODEINE 6.25-10 MG/5ML SYRP 1 tsp by mouth ever y 8 hours prn cough PROMETHAZINE-CODEINE 6.25-10 MG/5ML SYRP 698834 PROMETHAZINE-CODEINE Inactive PROMETHAZINE-CODEINE 6.25-10 MG/5ML SYRP 1 tsp by mout h every 6 hours if needed for cough PROMETHAZINE-CODEINE 6.25-10 MG/5ML SYRP 375220 PROMETHAZINE-CODEINE Inactive PROPRANOLOL HCL 60 MG TABS 1 PO Q D P ROPRANOLOL HCL 60 MG TABS 809230 PROPRANOLOL HCL Inactive TRIAMCINOLONE ACETONIDE 0.1 % CREA apply three times daily prn r beatrice TRIAMCINOLONE ACETONIDE 0.1 % CREA 5830225 TRIAMCINOLONE ACETONIDE Inactive ZOCOR 40 MG TAB 1 tab by mouth daily ZOCOR 40 M G TAB 459311 SIMVASTATIN Inactive TESSALON PERLES 100 MG CAP 1 tablet by mouth 3 times daily a s needed for cough TESSALON PERLES 100 MG CAP 229103 BENZONATATE I nactive TERBINAFINE HCL 250 MG TABS 1 qDay TERBINAFINE HCL 250 MG TABS 611772 TERBINAFINE HCL Inactive ACETAMINOPHEN-CODEINE #3 300-30 MG [...] food 20 12/03/31 AUGMENTIN 875-125 MG TAB 062805 AMOXICILLIN-POT CLAVULA EFE Inactive AUGMENTIN 875-125 MG TAB 1 po BID x 10 days AUGMENTIN 875- 125 MG TAB 644361 AMOXICILLIN-POT CLAVULANATE Inactive LEVAQUIN 500 MG TAB 1 tablet by mouth daily LEVAQUIN 500 MG TAB 382598 LEVOFLOXACIN Inactive LEVAQUIN 500 MG TABS take one po QD LEVAQUIN 50 0 MG TABS 917338 LEVOFLOXACIN Inactive TOPAMAX 25 MG TABS 1 [...] q days 2-5 ZITHROMAX 250 MG TAB 7549351 AZITHROMYCIN Inactive ZITHROMAX 250 MG TAB 2 po today, then 1 po q days 2-5 ZITHROMAX 250 MG TAB 0111139 AZITHROMYCIN Inactive ZITHROMAX 250 MG TAB 2 po today, then 1 po q days 2-5 ZITHROMAX 250 MG TAB 9351340 AZITHROMYCIN Inactive ZITHROMAX 250 MG TAB 2 po today, then 1 po q days 2-5 ZITHROMAX 250 MG TAB 0629390 AZITHROMYCIN Inactive AZITHROMYCIN 250 MG TABS 2 po qd x 1 day, then 1 po qd x 4 days AZITHROMYCIN 250 MG TABS 7294868 AZITHROMYCIN Inactiv e AZITHROMYCIN 250 MG TABS 2 po qd x 1 day, then 1 po qd x 4 days AZITHROMYCIN 250 MG TABS 1871456 AZITHROMYCIN Inactiv e CEFDINIR 300 MG CAPS [...] mouth daily A VELOX 400 MG TABS 427220 MOXIFLOXACIN HCL Inactive AVELOX 400 MG TABS 1 tab by mouth daily A VELOX 400 MG TABS 433509 MOXIFLOXACIN HCL Inactive AVELOX 400 MG TABS 1 tab by mouth daily A VELOX 400 MG TABS 909287 MOXIFLOXACIN HCL Inactive ZITHROMAX Z-REYNA 250 MG TABS 2 today, then 1 daily for 4 days 201 09/29/14 ZITHROMAX Z-REYNA 250 MG TABS 8128570 AZITHROMYCIN Inac tive ZITHROMAX Z-REYNA 250 MG TABS 2 today, then 1 daily for 4 days 201 04/09/17 ZITHROMAX Z-REYNA 250 MG TABS 7198538 AZITHROMYCIN Inac tive ZITHROMAX Z-REYNA 250 MG TABS 2 today, then 1 daily for 4 days 201 08/30/03 ZITHROMAX Z-REYNA 250 MG TABS 5472753 AZITHROMYCIN Inac tive ZITHROMAX Z-REYNA 250 MG TABS 2 today, then 1 daily for 4 days 201 08/07/20 ZITHROMAX Z-REYNA 250 MG TABS 3062411 AZITHROMYCIN Inac tive HYDROCODONE-ACETAMINOPHEN 5-325 MG TABS 1 po q 6hr PRN cough 201 05/09/16 HYDROCODONE-ACETAMINOPHEN 5-325 MG TABS 466218 HYDROCODONE-ACETAMINOPHEN Inactive TOPAMAX 50 MG TABS take 1 tab po BID for migraines. 20 12/07/10 TOPAMAX 50 MG TABS 399580 TOPIRAMATE Inactive LORTAB 7.5-500 MG/15ML ELIX 7.5 ml po q 4 hour prn cough LORTAB 7.5-500 MG/15ML ELIX HYDROCODONE-ACETAMINOPHEN Inacti ve CYMBALTA 30 MG CPEP 1 cap by mouth daily CYMBALTA 30 MG CPEP 630221 DULOXETINE HCL Inactive ASMANEX 60 METERED DOSES [...] empty FLUTICASONE PROPIONATE 50 MCG/ACT SUSP 17 20036 FLUTICASONE PROPIONATE Inactive FLUTICASONE PROPIONATE 50 MCG/ACT SUSP 1 to 2 sprays each no stril daily FLUTICASONE PROPIONATE 50 MCG/ACT SUSP 1952764 FLUTICASONE PROPIONATE Inactive SYMBICORT 160-4.5 MCG/ACT AERO [...] then stop MEDROL (REYNA) 4 MG TABS 287087 METHYLPREDNISOLONE Inactive MEDROL (REYNA) 4 MG TABS 6 tabs on day 1, 5 tabs on d ay 2, 4 tabs on day 3, 3 tabs on day 4, 2 tabs on day 5, 1 tab on day 6 MEDROL (REYNA) 4 MG TABS 181862 METHYLPREDNISOLONE Inactive TUSSIONEX PENNKINETIC ER 10-8 MG/5ML [...] Negative Encounters Code Encounter Date Provider Facility CPT-03458 Level 3 Est. Patient 12:17:50 CDT Hugo Restrepo MD [facility] CPT-03694 Level 3 Est. Patient 13:42:38 CDT Italo [facility] CPT-84321 Level 3 Est. Patient 13:23:51 CDT Diya cobian [facility] CPT-04757 Level 3 Est. Patient 14:22:19 DIRECTOR TRANSPORTATION Diya cobian [facility] CPT-06193 Level 3 Est. Patient 10:11:46 CDT Carlton rich MD [facility] CPT-52415 Level 3 Est. Patient 17:29:43 CDT Italo [facility] CPT-56002 Level 3 Est. Patient 11:58:06 CDT Italo RICEN [facility] CPT-92795 Level 4 Est. Patient 14:36:51 CDT Carlton rich MD [facility]-01145 Level 3 Est. Patient 18:16:00 DIRECTOR TRANSPORTATION Blaine Freeman [facility] CPT-57492 Level 3 Est. Patient 09:45:49 DIRECTOR TRANSPORTATION Carlton rich MD [facility]-30493 Level 3 Est. Patient 13:19:20 CDT Carlton rich MD [facility]-76805 Level 3 Est. Patient 13:06:43 CDT Ridge tam DO [facility] CPT-15307 Level 3 Est. Patient 10:03:07 CDT Perez Mora MD [facility] CPT-18412 Level 3 Est. Patient 19:50:35 DIRECTOR TRANSPORTATION Carlton rich MD [facility] CPT-83640 Level 4 Est. Patient 18:05:01 DIRECTOR TRANSPORTATION Carlton rich MD [facility] CPT-69522 Level 3 Est. Patient 10:45:55 DIRECTOR TRANSPORTATION Hugo Restrepo MD [facility] CPT-56481 Level 3 Est. Patient 14:12:49 CDT Griffin lincoln [facility]-53823 Level 3 Est. Patient 17:37:24 CDT Carlton rich MD [facility]-53392 Level 3 Est. Patient 16:51:54 CDT Carlton rich MD [facility]-60253 Level 3 Est. Patient 12:18:11 CDT Hugo Restrepo MD [facility]-87711 Level 3 Est. Patient 11:30:25 CDT Marcy crisostomo MD PhD [facility] CPT-55362 Level 3 Est. Patient 12:00:47 DIRECTOR TRANSPORTATION Carlton rich MD [facility] CPT-95776 Level 3 Est. Patient 16:31:06 DIRECTOR TRANSPORTATION Carlton rich MD [facility] CPT-54825 Level 3 Est. Patient 16:23:24 DIRECTOR TRANSPORTATION Ridge tam [facility] CPT-08490 Level 3 Est. Patient 12:34:12 CDT Carlton rich MD [facility] CPT-65046 Level 2 Est. Patient 15:43:33 CDT Robi armstrong MD [facility] CPT-60436 Level 4 Est. Patient 14:04:44 CDT Carlton rich MD [facility] CPT-81901 Level 3 Est. Patient 05:47:59 CDT Ridge tam [facility] CPT-31956 Level 3 Est. Patient 13:12:53 DIRECTOR TRANSPORTATION Carlton rich MD [facility] CPT-02175 Level 3 Est. Patient 14:26:53 CDT Hugo Restrepo MD [facility] Procedures Code Procedure Name Date Entry Date Standard Desc ription CPT-J0696 Rocephin 1gm Inj Solr 14:32:13 CDT CPT-J1020 Depo Medrol 60 mg (Methyl Prednisolone A cetate) 14:32:13 CDT CPT-J1100 Decadron 6mg (Dexamethasone) 14:32:13 CDT 2 CPT-81849 Hip bilat min 2V w AP pelvis 13:16:20 CDT 2 CPT-28285 Pelvis only 13:07:33 CDT CPT-16158 Spec Collection and Handling Fee 11:25:12 C DT CPT-20532 Fluzone Quadrivalent Intramuscular Suspe nsion 0.5 ML 14:31:55 CDT CPT-75336 Abx/Therapy Injection 13:28:47 DIRECTOR TRANSPORTATION CPT-J2930 Solu Medrol 125 mg (Methyl Prednisolone Sodium Succinate) 12:00:47 DIRECTOR TRANSPORTATION CPT-82975 Venipuncture Draw Fee 11:33:31 CDT CPT-73651 EKG Trac and Interp 11:21:09 CDT CPT-62208 Chest 2V Frontal and Lat 11:21:09 CDT 12/15 CPT-44586 Venipuncture Draw Fee 08:02:34 CDT CPT-43718 Chest 2V Frontal and Lat 05:47:59 CDT 06/05
--- OUTSIDE RECORDS SUMMARY | 2019-10-08 08:14 | XMS REPORT | Clinical Summary ---
Author Author Caitlin, Juliana Martinez Organization [facility] Address Unknown Phone Unavailable Allergies, Adverse [...] Instruction TUSSIONEX PENNKINETIC ER 10-8 MG/5ML LQCR 5ml po q12hr PRN Cough 20 14/09/04 HYDROCOD POLST-CHLORPHEN POLST 36202590268 Active Elise Whitmore APRN Active ZITHROMAX 250 MG TAB 2 po today, then 1 po q days 2-5 AZITHROMYCIN 25388354157 No Longer Active Elise Whitmore APRN Acti ve TUSSIONEX PENNKINETIC ER 10-8 MG/5ML LQCR 5 ml twice a day a s needed for cough HYDROCOD POLST-CHLORPHEN POLST 64279798332 N o Longer Active Elise Whitmore APRN Active MONTELUKAST SODIUM 10 MG ORAL TABS 1 po daily for Allergy 6 MONTELUKAST SODIUM 11256750799 Active ALFREDO Holly Act nael TUSSIONEX PENNKINETIC ER 10-8 MG/5ML LQCR 5ml po q12hr PRN Cough HYDROCOD POLST-CHLORPHEN POLST 17084615765 No Longer Active Hugo Restrepo MD Active GABAPENTIN 100 MG CAPS 1 po BID for fibromyalgia GABAPENTIN 19994620067 Active Elise Whitmore APRN Active LYRICA 100 MG CAPS Take 1 tab po BID for fibromyalgia PREGABALIN 51679969812 No Longer Active Elise Whitmore APRN Acti ve PROAIR HFA 108 (90 BASE) MCG/ACT AERS 2 puffs four times a d ay as needed ALBUTEROL SULFATE 52130555123 Active Elise Whitmore APRN Active MUCINEX DM MAXIMUM STRENGTH 60-1200 MG [id number] 1 tab po q am 2016 DEXTROMETHORPHAN-GUAIFENESIN 39788406241 Active Jillina Cesral [employer] MACHINE 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 PREDNISONE 20 MG TAB 2 tabs daily for 3 days, 1 t ab daily for 3 days, 1/2 tab daily for 2 days PREDNISONE 32426476277 No Longer Active Jillina Cesarl [employer]KING MACHINE 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 TUSSIONEX PENNKINETIC ER 10-8 MG/5ML ORAL LQCR 5 mL PO q 12 hrs PRN cough HYDROCOD POLST-CHLORPHEN POLST 52389823392 No Longer Active Jillina Frazell [employer] MACHINE 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 FLUTICASONE PROPIONATE 50 MCG/ACT SUSP 2 sprays each n ostril daily until bottle is empty FLUTICASONE PROPIONATE 14634519074 No Longer Ac tive Jillina Frazell [employer]KING MACHINE 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 ASMANEX 60 METERED DOSES 220 MCG/INH AEPB 1 puff bid with ri nse after MOMETASONE FUROATE 84882545540 No Longer Active Venullina Darlin ell [employer]KING MACHINE 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 ZITHROMAX Z-REYNA 250 MG TABS 2 today, then 1 daily for 4 days 201 09/29/14 AZITHROMYCIN 72380548438 No Longer Active Elise Whitmore APRN Active TUSSIONEX PENNKINETIC ER 10-8 MG/5ML LQCR 5ml po q12hr PRN Cough HYDROCOD POLST-CHLORPHEN POLST 71092373773 No Longer Active Elise Whitmore [employer]KING MACHINE 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 MUCINEX D 60-600 MG [id number] 1 tab po q am PSEUDOEPHEDRINE-GUAIFENESIN 72091593266 Active Jillina Frazell [employer] MACHINE 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 PREDNISONE 20 MG TAB 2 tabs daily for 3 days, 1 t ab daily for 3 days, 1/2 tab daily for 2 days PREDNISONE 13230110053 No Longer Active Jillina Frazell [employer]KING MACHINE 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 AMOXICILLIN 500 MG CAPS 2 po BID x 10 days AMOX ICILLIN 84940822383 No Longer Active Jillina Frazell [employer]KING MACHINE 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 SINGULAIR 10 MG TABS 1 po qday for allergies 2 MONTELUKAST SODIUM 32958069528 No Longer Active Carlton Hu MD Acti ve LEVAQUIN 500 MG TAB 1 tablet by mouth daily LEV OFLOXACIN 35913598941 No Longer Active Carlton Hu MD Active FLUTICASONE PROPIONATE 50 MCG/ACT SUSP 2 sprays each n ostril daily for 2 weeks, then 1 spray each nostril daily. FLUTICASONE PRO PIONATE 57160751007 Active Elise Whitmore APRN Active ZITHROMAX 250 MG TAB 2 po today, then 1 po q days 2-5 AZITHROMYCIN 65641647987 No Longer Active Elise Whitmore APRN Acti ve XANAX 0.5 MG TABS one tablet by mouth daily prn anxiety ALPRAZOLAM 13669380445 Active Elise Whitmore APRN Active CYMBALTA 30 MG CPEP 1 cap by mouth daily for depression DULOXETINE HCL 19815905649 Active Carlton Hu MD Active CEFDINIR 300 MG CAPS 1 po BID x 10 days CEFDINI R 87627125363 No Longer Active Carlton Hu MD Active ZOCOR 40 MG TAB 1 tab by mouth daily SIMVASTATI N 68629200658 No Longer Active Carlton Hu MD Active CYCLOBENZAPRINE HCL 10 MG TABS 1 tablet by mouth BID prn had cherelle n CYCLOBENZAPRINE HCL 18764668963 No Longer Active Carlton Hu MD Active LEVOFLOXACIN 500 MG ORAL TABS 1 tab PO daily x 10 days LEVOFLOXACIN 23908258204 No Longer Active Carlton Hu MD Acti ve PREDNISONE 20 MG ORAL TABS 3 tab PO qd x 2d, 2 tab PO qd x 2d, 1 tab PO qd x 2d, 1/2 tab PO qd x 2d PREDNISONE 91136474687 No Longer Active Carlton Hu MD Active FLUTICASONE PROPIONATE 50 MCG/ACT SUSP 1 to 2 sprays each no stril daily FLUTICASONE PROPIONATE 90001601750 No Longer Active T jaz HERNANDEZ Active CHERATUSSIN AC 100-10 MG/5ML SYRP 1 tsp by mouth every 4 hours as needed for cough GUAIFENESIN-CODEINE 80503083070 No Longer Activ e Blaine HERNANDEZ Active PROMETHAZINE-CODEINE 6.25-10 MG/5ML SYRP 1 tsp by mout h every 6 hours if needed for cough PROMETHAZINE-CODEINE 72913934284 No Long er Active Blaine HERNANDEZ Active CHERATUSSIN AC 100-10 MG/5ML SYRP 1 tsp by mouth every 4 hours as needed for cough GUAIFENESIN-CODEINE 98799857963 No Longer Activ e Blaine HERNANDEZ Active ZITHROMAX Z-REYNA 250 MG TABS 2 today, then 1 daily for 4 days 201 08/30/03 AZITHROMYCIN 47122293860 No Longer Active Columba Raida Act nael ZITHROMAX 250 MG TAB 2 po today, then 1 po q days 2-5 AZITHROMYCIN 11217551955 No Longer Active Carlton Hu MD Acti ve ZITHROMAX Z-REYNA 250 MG TABS 2 today, then 1 daily for 4 days 201 08/07/20 AZITHROMYCIN 09861764311 No Longer Active Columba Raida Act nael AUGMENTIN 875-125 MG TAB 1 po BID x 10 days AMOXICILLIN- POT CLAVULANATE 77749745265 No Longer Active Jillina Gege RICEN Active ZITHROMAX 250 MG TAB 2 po today, then 1 po q days 2-5 AZITHROMYCIN 26170544844 No Longer Active Carlton Hu MD Acti ve TRAMADOL HCL 50 MG TABS 1 po tid with ES Tylenol TRAMADOL HCL 93879409670 Active Carlton Hu MD Active PREMARIN 0.625 MG TABS TAKE 1 TAB BY MOUTH DAILY 07/25 ESTROGENS CONJUGATED 65517140071 No Longer Active Ridge Bess DO Active CYMBALTA 30 MG CPEP 1 cap by mouth daily DULOXE SNEHA HCL 14784915052 No Longer Active Ridge Bess DO Active AMOXICILLIN 500 MG CAP 1 tab by mouth 3 times daily x 10 days 20 14/04/28 AMOXICILLIN 79610932256 No Longer Active Carlton Hu MD Active AMOXICILLIN 500 MG CAP 1 tab by mouth 3 times daily x 10 days 20 13/03/08 AMOXICILLIN 18519249775 No Longer Active Carlton Hu MD Active PROMETHAZINE-CODEINE 6.25-10 MG/5ML SYRP 1 tsp by mouth ever y 8 hours prn cough PROMETHAZINE-CODEINE 06550343261 No Longer Active Robert Hu MD Active MEDROL (REYNA) 4 MG TABS 6 pills x 1 day, then 5 pill s x 1 day then 4 pills x 1 day, then 3 pills x 1 day, then 2 pills x 1 day, then 1 pill x 1 day, then stop METHYLPREDNISOLONE 56663097640 No Longer Active Parris Mora MD Active AZITHROMYCIN 250 MG TABS 2 po qd x 1 day, then 1 po qd x 4 days AZITHROMYCIN 87973820696 No Longer Active Perez Mora MD Active SYMBICORT 160-4.5 MCG/ACT AERO 2 puffs bid with rinse after 2011 BUDESONIDE-FORMOTEROL FUMARATE 71596484064 No Longer Active Perez Mora MD Active LYRICA 75 MG CAPS TAKE 1 CAPSULE BY MOUTH TWICE DAILY 2013 PREGABALIN 18905532315 No Longer Active Carlton Hu MD Active TOPAMAX 25 MG TABS 1 qHS x 1 week, then 1 BID x 1 week, then 1 qAM and 2 qHS x 1 week, then 2 BID (migraine prevention) TOPIRAMAT E 97565617709 No Longer Active Jerica FUENTES Active TOPAMAX 50 MG TABS take 1 tab po BID for migraines. 12/07/10 TOPIRAMATE 98420914125 No Longer Active Jerica FUENTES Ac tive TOPAMAX 100 MG TABS Take 1 tablet po bid TOPIRAMATE 4999 3575553 Active Elise Whitmore APRN Active TRIAMCINOLONE ACETONIDE 0.1 % CREA apply three times daily prn r beatrice TRIAMCINOLONE ACETONIDE 34241092523 No Longer Active Carlton Hu MD Active PAXIL 40 MG TAB take 1 tab po qday for depression PAROXETINE HCL 76200261782 Active Elise Whitmore APRN Active CHERATUSSIN AC 100-10 MG/5ML SYRP 5ml po q6hr PRN Cough GUAIFENESIN-CODEINE 54693653342 No Longer Active Carlton Hu MD Active MEDROL (REYNA) 4 MG TABS 6 tabs on day 1, 5 tabs on d ay 2, 4 tabs on day 3, 3 tabs on day 4, 2 tabs on day 5, 1 tab on day 6 METHYLPREDNISOLONE 69692285658 No Longer Active Perez Mora MD Active AZITHROMYCIN 250 MG TABS 2 po qd x 1 day, then 1 po qd x 4 days AZITHROMYCIN 51181051047 No Longer Active Perez Mora MD Active PROPRANOLOL HCL 60 MG TABS 1 PO Q D PROPRANOL OL HCL 57659664427 No Longer Active Perez Mora MD Active CHERATUSSIN AC 100-10 MG/5ML SYRP take one tsp po Q 6hours prn c ough GUAIFENESIN-CODEINE 60951452352 No Longer Active Perez Means Active AUGMENTIN 875-125 MG TAB 1 tab by mouth twice daily with food 12/03/31 AMOXICILLIN-POT CLAVULANATE 57828061210 No Longer Active Chanel Mora MD Active CHERATUSSIN AC 100-10 MG/5ML SYRP 1 tsp by mouth every 4 hours as needed for cough GUAIFENESIN-CODEINE 53033180714 No Longer Activ e Hugo Restrepo MD Active ACETAMINOPHEN-CODEINE #3 300-30 MG TABS 1 PO Q 4-6 HRS PRN PAIN ACETAMINOPHEN-CODEINE 73318804118 No Longer Active Hugo Restrepo MD Active LEVAQUIN 500 MG TABS take one po QD LEVOFLOXACI N 50646641768 No Longer Active Griffin HERNANDEZ Active PREDNISONE 20 MG TAB Take 3 tabs daily for 3 days , 2 tabs daily for 3 days, 1 tab daily for 3 days, 1/2 tab daily for 3 days P REDNISONE 46027574345 No Longer Active Carlton Hu MD Active AVELOX 400 MG TABS 1 tab by mouth daily MOXIFLO XACIN HCL 97797346919 No Longer Active Carlton Hu MD Active CHERATUSSIN AC 100-10 MG/5ML SYRP 1 tsp by mouth every 4 hours as needed for cough GUAIFENESIN-CODEINE 67120366661 No Longer Activ e Hugo Restrepo MD Active AVELOX 400 MG TABS 1 tab by mouth daily MOXIFLO XACIN HCL 62795981912 No Longer Active Marcy De La Rosa MD PhD Active TERBINAFINE HCL 250 MG TABS 1 qDay TERBINAF INE HCL 32559222911 No Longer Active Marcy De La Rosa MD PhD Active CHERATUSSIN AC 100-10 MG/5ML SYRP 1 tsp by mouth every 4 hours as needed for cough GUAIFENESIN-CODEINE 15097153149 No Longer Activ e Marcy De La Rosa MD PhD Active AVELOX 400 MG TABS 1 tab by mouth daily MOXIFLO XACIN HCL 75269201194 No Longer Active Marcy De La Rosa MD PhD Active HYDROCODONE-ACETAMINOPHEN 5-325 MG TABS 1 po q 6hr PRN cough 201 05/09/16 HYDROCODONE-ACETAMINOPHEN 94189414822 No Longer Active Marcy De La Rosa MD PhD Active PREDNISONE 20 MG TAB 2 tabs daily for 3 days, 1 t ab daily for 3 days, 1/2 tab daily for 2 days PREDNISONE 07011968342 No Longer Active Carlton Hu MD Active CEFDINIR 300 MG CAPS by mouth twice a day CEFDI ODILIA 89404775260 No Longer Active Carlton Hu MD Active HYDROCHLOROTHIAZIDE 25 MG TABS 1 TAB PO DAILY H YDROCHLOROTHIAZIDE 19313144633 Active Carlton Hu MD Active ACETAMINOPHEN-CODEINE #3 300-30 MG TABS 1 tablet po q 4-6hrs prn pain ACETAMINOPHEN-CODEINE 60576131962 No Longer Active Ridge Bess DO Active ZITHROMAX 250 MG TAB 2 po today, then 1 po q days 2-5 AZITHROMYCIN 92982177942 No Longer Active Carlton Hu MD Acti ve CHERATUSSIN AC 100-10 MG/5ML SYRP take 1 tsp po q4-6 hours prn c ough GUAIFENESIN-CODEINE 56535832191 No Longer Active Carlton Hu MD Active ACETAMINOPHEN-CODEINE #3 300-30 MG TABS 1 PO Q 4-6 HR PRN PAIN 2 ACETAMINOPHEN-CODEINE 91048226565 No Longer Active Carlton rich MD Active LORTAB 7.5-500 MG/15ML ELIX 7.5 ml po q 4 hour prn cough HYDROCODONE-ACETAMINOPHEN 49018982175 No Longer Active Carlton Hu MD Active PREDNISONE 20 MG TAB 1 po bid 3 days, then 1 po q day 3 days 201 05/03/07 PREDNISONE 77144122103 No Longer Active Carlton Hu MD Active ELMIRON 100 MG CAPS 2 tablets in the am and 1 tablet at hs PENTOSAN POLYSULFATE SODIUM 17905535486 Active Carlton Hu MD Ac tive CEFDINIR 300 MG CAPS by mouth twice a day CEFDI ODILIA 04318646807 No Longer Active Carlton Hu MD Active CEFDINIR 300 MG CAPS by mouth twice a day CEFDI ODILIA 67172212095 No Longer Active Carlton Hu MD Active CEFDINIR 300 MG CAPS by mouth twice a day CEFDI ODILIA 28859971991 No Longer Active Carlton Hu MD Active TESSALON PERLES 100 MG CAP 1 tablet by mouth 3 times daily a s needed for cough BENZONATATE 49828047199 No Longer Active Carlton bustamante MD Active CEFDINIR 300 MG CAPS by mouth twice a day CEFDI ODILIA 35958718254 No Longer Active Carlton Hu MD Active ZITHROMAX Z-REYNA 250 MG TABS 2 today, then 1 daily for 4 days 201 04/09/17 AZITHROMYCIN 81120594728 No Longer Active Hugo Restrepo MD Active TESSALON PERLES 100 MG CAP 1 tablet by mouth 3 times daily a s needed for cough TESSALON PERLES 100 MG CAP 388940 BENZONATATE I nactive PREDNISONE 20 MG TAB 1 po bid 3 days, then 1 po q day 3 days 201 05/03/07 PREDNISONE 20 MG TAB 595114 PREDNISONE Inactive LORTAB 7.5-500 MG/15ML ELIX 7.5 ml po q 4 hour prn cough LORTAB 7.5-500 MG/15ML ELIX HYDROCODONE-ACETAMINOPHEN Inacti ve ACETAMINOPHEN-CODEINE #3 300-30 MG TABS 1 PO Q 4-6 HR PRN PAIN 2 ACETAMINOPHEN-CODEINE #3 300-30 MG TABS ACETAMIN OPHEN-CODEINE Inactive CHERATUSSIN AC 100-10 MG/5ML SYRP take 1 tsp po q4-6 hours prn c ough CHERATUSSIN AC 100-10 MG/5ML SYRP 401394 GUAIFENESIN-CO DEINE Inactive ACETAMINOPHEN-CODEINE #3 300-30 MG TABS 1 tablet po q 4-6hrs prn pain ACETAMINOPHEN-CODEINE #3 300-30 MG TABS ACETAMIN OPHEN-CODEINE Inactive HYDROCODONE-ACETAMINOPHEN 5-325 MG TABS 1 po q 6hr PRN cough 201 05/09/16 HYDROCODONE-ACETAMINOPHEN 5-325 MG TABS 827804 HYDROCODONE-ACETAMINOPHEN Inactive AVELOX 400 MG TABS 1 tab by mouth daily A VELOX 400 MG TABS 856188 MOXIFLOXACIN HCL Inactive CHERATUSSIN AC 100-10 MG/5ML SYRP 1 tsp by mouth every 4 hours as needed for cough CHERATUSSIN AC 100-10 MG/5ML SYRP 553169 GUAIFENESIN-CODEINE Inactive TERBINAFINE HCL 250 MG TABS 1 qDay TERBINAFINE HCL 250 MG TABS 082915 TERBINAFINE HCL Inactive CHERATUSSIN AC 100-10 MG/5ML SYRP 1 tsp by mouth every 4 hours as needed for cough CHERATUSSIN AC 100-10 MG/5ML SYRP 732810 GUAIFENESIN-CODEINE Inactive ACETAMINOPHEN-CODEINE #3 300-30 MG TABS 1 PO Q 4-6 HRS PRN PAIN ACETAMINOPHEN-CODEINE #3 300-30 MG TABS ACETAMINOPHEN-CODEIN E Inactive CHERATUSSIN AC 100-10 MG/5ML SYRP 1 tsp by mouth every 4 hours as needed for cough CHERATUSSIN AC 100-10 MG/5ML SYRP 426877 GUAIFENESIN-CODEINE Inactive AUGMENTIN 875-125 MG TAB 1 tab by mouth twice daily with food 20 12/03/31 AUGMENTIN 875-125 MG TAB 272515 AMOXICILLIN-POT CLAVULA EFE Inactive CHERATUSSIN AC 100-10 MG/5ML SYRP take one tsp po Q 6hours prn c ough CHERATUSSIN AC 100-10 MG/5ML SYRP 965638 GUAIFENESIN-CO DEINE Inactive PROPRANOLOL HCL 60 MG TABS 1 PO Q D P ROPRANOLOL HCL 60 MG TABS 017351 PROPRANOLOL HCL Inactive TOPAMAX 50 MG TABS take 1 tab po BID for migraines. 12/07/10 TOPAMAX 50 MG TABS 485530 TOPIRAMATE Inactive TOPAMAX 25 MG TABS 1 qHS x 1 week, then 1 BID x 1 week, then 1 qAM and 2 qHS x 1 week, then 2 BID (migraine prevention) TOPAMAX 2 5 MG TABS 601225 TOPIRAMATE Inactive LYRICA 75 MG CAPS TAKE 1 CAPSULE BY MOUTH TWICE DAILY LYRICA 75 MG CAPS PREGABALIN Inactive SYMBICORT 160-4.5 MCG/ACT AERO 2 puffs bid with rinse after 2011 SYMBICORT 160-4.5 MCG/ACT AERO BUDESONIDE-FORMOT SÁNCHEZ FUMARATE Inactive PROMETHAZINE-CODEINE 6.25-10 MG/5ML SYRP 1 tsp by mouth ever y 8 hours prn cough PROMETHAZINE-CODEINE 6.25-10 MG/5ML SYRP 293117 PROMETHAZINE-CODEINE Inactive CYMBALTA 30 MG CPEP 1 cap by mouth daily CYMBALTA 30 MG CPEP 629509 DULOXETINE HCL Inactive PREMARIN 0.625 MG TABS TAKE 1 TAB BY MOUTH DAILY 07/25 PREMARIN 0.625 MG TABS ESTROGENS CONJUGATED Inactive CHERATUSSIN AC 100-10 MG/5ML SYRP 1 tsp by mouth every 4 hours as needed for cough CHERATUSSIN AC 100-10 MG/5ML SYRP 564427 GUAIFENESIN-CODEINE Inactive PROMETHAZINE-CODEINE 6.25-10 MG/5ML SYRP 1 tsp by mout h every 6 hours if needed for cough PROMETHAZINE-CODEINE 6.25-10 MG/5ML SYRP 993215 PROMETHAZINE-CODEINE Inactive CHERATUSSIN AC 100-10 MG/5ML SYRP 1 tsp by mouth every 4 hours as needed for cough CHERATUSSIN AC 100-10 MG/5ML SYRP 163899 GUAIFENESIN-CODEINE Inactive FLUTICASONE PROPIONATE 50 MCG/ACT SUSP 1 to 2 sprays each no stril daily FLUTICASONE PROPIONATE 50 MCG/ACT SUSP 9152616 FLUTICASONE PROPIONATE Inactive PREDNISONE 20 MG ORAL TABS 3 tab PO qd x 2d, 2 tab PO qd x 2d, 1 tab PO qd x 2d, 1/2 tab PO qd x 2d PREDNISONE 20 MG ORAL TABS 154172 PREDNISONE Inactive LEVOFLOXACIN 500 MG ORAL TABS 1 tab PO daily x 10 days LEVOFLOXACIN 500 MG ORAL TABS 349660 LEVOFLOXACIN Inactive CYCLOBENZAPRINE HCL 10 MG TABS 1 tablet by mouth BID prn had cherelle n CYCLOBENZAPRINE HCL 10 MG TABS 080573 CYCLOBENZAPRINE H CL Inactive ZOCOR 40 MG TAB 1 tab by mouth daily ZOCOR 40 M G TAB 594313 SIMVASTATIN Inactive TUSSIONEX PENNKINETIC ER 10-8 MG/5ML [...] empty FLUTICASONE PROPIONATE 50 MCG/ACT SUSP 17 29145 FLUTICASONE PROPIONATE Inactive TUSSIONEX PENNKINETIC ER 10-8 [...] 201 04/09/17 ZITHROMAX Z-REYNA 250 MG TABS 8764196 AZITHROMYCIN Inac tive CEFDINIR 300 MG CAPS [...] q days 2-5 ZITHROMAX 250 MG TAB 6276596 AZITHROMYCIN Inactive CEFDINIR 300 MG CAPS by mouth twice a day CEFDINIR 300 MG CAPS 20020704 CEFDINIR Inactive PREDNISONE 20 MG TAB 2 tabs daily for 3 days, 1 t ab daily for 3 days, 1/2 tab daily for 2 days PREDNISONE 20 MG TAB 504162 PREDNISON E Inactive AVELOX 400 MG TABS 1 tab by mouth daily A VELOX 400 MG TABS 024625 MOXIFLOXACIN HCL Inactive AVELOX 400 MG TABS 1 tab by mouth daily A VELOX 400 MG TABS 435181 MOXIFLOXACIN HCL Inactive PREDNISONE 20 MG TAB Take 3 tabs daily for 3 days , 2 tabs daily for 3 days, 1 tab daily for 3 days, 1/2 tab daily for 3 days PREDNISONE 20 MG TAB 349845 PREDNISONE Inactive LEVAQUIN 500 MG TABS take one po QD LEVAQUIN 50 0 MG TABS 098685 LEVOFLOXACIN Inactive AZITHROMYCIN 250 MG TABS 2 po qd x 1 day, then 1 po qd x 4 days AZITHROMYCIN 250 MG TABS 0753403 AZITHROMYCIN Inactiv e MEDROL (REYNA) 4 MG TABS 6 tabs on day 1, 5 tabs on d ay 2, 4 tabs on day 3, 3 tabs on day 4, 2 tabs on day 5, 1 tab on day 6 MEDROL (REYNA) 4 MG TABS 516604 METHYLPREDNISOLONE Inactive CHERATUSSIN AC 100-10 MG/5ML SYRP 5ml po q6hr PRN Cough CHERATUSSIN AC 100-10 MG/5ML SYRP 862085 GUAIFENESIN-CODEINE Inacti ve TRIAMCINOLONE ACETONIDE 0.1 % CREA apply three times daily prn r beatrice TRIAMCINOLONE ACETONIDE 0.1 % CREA 5422103 TRIAMCINOLONE ACETONIDE Inactive AZITHROMYCIN 250 MG TABS 2 po qd x 1 day, then 1 po qd x 4 days AZITHROMYCIN 250 MG TABS 8934246 AZITHROMYCIN Inactiv e MEDROL (REYNA) 4 MG TABS 6 pills x 1 day, then 5 pill s x 1 day then 4 pills x 1 day, then 3 pills x 1 day, then 2 pills x 1 day, then 1 pill x 1 day, then stop MEDROL (REYAN) 4 MG TABS 486187 METHYLPREDNISOLONE Inactive AMOXICILLIN 500 MG CAP 1 tab by mouth 3 times daily x 10 days 20 13/03/08 AMOXICILLIN 500 MG CAP 046985 AMOXICILLIN Inactive AMOXICILLIN 500 MG CAP 1 tab by mouth 3 times daily x 10 days 20 14/04/28 AMOXICILLIN 500 MG CAP 715561 AMOXICILLIN Inactive ZITHROMAX 250 MG TAB 2 po today, then 1 po q days 2-5 ZITHROMAX 250 MG TAB 4151815 AZITHROMYCIN Inactive AUGMENTIN 875-125 MG TAB 1 po BID x 10 days AUGMENTIN 875- 125 MG TAB 352131 AMOXICILLIN-POT CLAVULANATE Inactive ZITHROMAX Z-REYNA 250 MG TABS 2 today, then 1 daily for 4 days 201 08/07/20 ZITHROMAX Z-REYNA 250 MG TABS 3667911 AZITHROMYCIN Inac tive ZITHROMAX 250 MG TAB 2 po today, then 1 po q days 2-5 ZITHROMAX 250 MG TAB 1442042 AZITHROMYCIN Inactive ZITHROMAX Z-REYNA 250 MG TABS 2 today, then 1 daily for 4 days 201 08/30/03 ZITHROMAX Z-REYNA 250 MG TABS 2801395 AZITHROMYCIN Inac tive CEFDINIR 300 MG CAPS 1 po BID x 10 days C EFDINIR 300 MG CAPS 20020704 CEFDINIR Inactive ZITHROMAX 250 MG TAB 2 po today, then 1 po q days 2-5 ZITHROMAX 250 MG TAB 4652544 AZITHROMYCIN Inactive LEVAQUIN 500 MG TAB 1 tablet by mouth daily LEVAQUIN 500 MG TAB 924906 LEVOFLOXACIN Inactive SINGULAIR 10 MG TABS 1 po qday for allergies 2 SINGULAIR 10 MG TABS 20010504 MONTELUKAST SODIUM Inactive AMOXICILLIN 500 MG CAPS 2 po BID x 10 days AMOXICILLIN 500 MG CAPS 022954 AMOXICILLIN Inactive PREDNISONE 20 MG TAB 2 tabs daily for 3 days, 1 t ab daily for 3 days, 1/2 tab daily for 2 days PREDNISONE 20 MG TAB 666184 PREDNISON E Inactive ZITHROMAX Z-REYNA 250 MG TABS 2 today, then 1 daily for 4 days 201 09/29/14 ZITHROMAX Z-REYNA 250 MG TABS 5538370 AZITHROMYCIN Inac tive PREDNISONE 20 MG TAB 2 tabs daily for 3 days, 1 t ab daily for 3 days, 1/2 tab daily for 2 days PREDNISONE 20 MG TAB 216096 PREDNISON E Inactive ZITHROMAX 250 MG TAB 2 po today, then 1 po q days 2-5 ZITHROMAX 250 MG TAB 8183629 AZITHROMYCIN Inactive Vital Signs Date Name Value Unit Range Description blood pressure, diastolic - 8462-4 82 mm[Hg] BP srinivasan blood pressure, systolic - 8480-6 131 mm[Hg] BP sys height E&M - 8302-2 53 [in_us] Bdy h eight pulse rate E&M - 8867-4 106 /min H eart rate temperature E&M 98.7 [degF] Body temp erature weight E&M - 3141-9 140.5 [lb_av] Weigh t Measured blood pressure, diastolic - 8462-4 81 mm[Hg] [...] - 3141-9 148 [lb_av] Weigh t Measured Diagnostic Results Date Name Value Unit Range Description Lab Report: Rapid Strep - Lab Microbial identification kit, rapid strep method Negative Negative Encounters Code Encounter Date Provider Facility CPT-69143 Level 3 Est. Patient 12:17:50 CDT Hugo Restrepo MD [facility]-05508 Level 3 Est. Patient 13:42:38 CDT [facility] CPT-06182 Level 3 Est. Patient 13:23:51 CDT Diya cobian [facility]-75260 Level 3 Est. Patient 14:22:19 [facility] Diya cobian [facility]-82163 Level 3 Est. Patient 10:11:46 CDT Carlton rich MD [facility]-63040 Level 3 Est. Patient 17:29:43 CDT [facility] CPT-87926 Level 3 Est. Patient 11:58:06 CDT [facility] CPT-35627 Level 4 Est. Patient 14:36:51 CDT Carlton rich MD [facility]-84553 Level 3 Est. Patient 18:16:00 [facility] Blaine HERNANDEZ [facility]-03715 Level 3 Est. Patient 09:45:49 [facility] Carlton rich MD [facility] CPT-68543 Level 3 Est. Patient 13:19:20 CDT Carlton rich MD [facility] CPT-89793 Level 3 Est. Patient 13:06:43 CDT Ridge tam DO [facility] CPT-18325 Level 3 Est. Patient 10:03:07 CDT Perez Mora MD [facility] CPT-15030 Level 3 Est. Patient 19:50:35 [facility] Carlton rich MD [facility]-29342 Level 4 Est. Patient 18:05:01 [facility] Carlton rich MD [facility]-43332 Level 3 Est. Patient 10:45:55 [facility] Hugo Restrepo MD [facility]-38189 Level 3 Est. Patient 14:12:49 CDT Griffin HERNANDEZ [facility]-53927 Level 3 Est. Patient 17:37:24 CDT Carlton rich MD [facility]-63669 Level 3 Est. Patient 16:51:54 CDT Calrton rich MD [facility]-93585 Level 3 Est. Patient 12:18:11 CDT Hugo Restrepo MD [facility]-78367 Level 3 Est. Patient 11:30:25 CDT Marcy crisostomo MD PhD [facility]-57979 Level 3 Est. Patient 12:00:47 [facility] Carlton rich MD [facility]-15098 Level 3 Est. Patient 16:31:06 [facility] Carlton rich MD [facility]-06405 Level 3 Est. Patient 16:23:24 [facility] Ridge tam DO [facility]-04167 Level 3 Est. Patient 12:34:12 CDT Carlton rich MD [facility]-12983 Level 2 Est. Patient 15:43:33 CDT Robi armstrong MD [facility]-37335 Level 4 Est. Patient 14:04:44 CDT Carlton rich MD [facility]-24540 Level 3 Est. Patient 05:47:59 CDT Ridge tam DO [facility] CPT-20485 Level 3 Est. Patient 13:12:53 [facility] Carlton rich MD [facility] CPT-38784 Level 3 Est. Patient 14:26:53 CDT Hugo [...] CPT-J1100 Decadron 6mg (Dexamethasone) 14:32:13 CDT 2 CPT-43334 Hip bilat min 2V w AP pelvis 13:16:20 CDT 2 CPT-66605 Pelvis only 13:07:33 CDT CPT-39202 Spec Collection and Handling Fee 11:25:12 C DT CPT-24336 Fluzone Quadrivalent Intramuscular Suspe nsion 0.5 ML 14:31:55 CDT CPT-46292 Abx/Therapy Injection 13:28:47 [facility] CPT-J2930 Solu Medrol 125 mg (Methyl Prednisolone Sodium Succinate) 12:00:47 [facility] CPT-39473 Venipuncture Draw Fee 11:33:31 CDT CPT-74862 EKG Trac and Interp 11:21:09 CDT CPT-14755 Chest 2V Frontal and Lat 11:21:09 CDT 12/15 CPT-43737 Venipuncture Draw Fee 08:02:34 CDT CPT-29503 Chest 2V Frontal and Lat 05:47:59 CDT 06/05
--- OUTSIDE RECORDS SUMMARY | 2019-10-08 08:14 | XMS REPORT | Clinical Summary ---
Author Author Caitlin, Juliana Martinez Organization [facility] Address Unknown Phone Unavailable Allergies, Adverse [...] sites Sinusitis 473.9 Active Diya De Guzman WOODYARD OPERATOR Unspecified sinusitis (chronic) Bronchitis-Acute 466.0 Active Carlton Hu MD Acute bronchitis URI - acute 465.9 Active Elise Whitmore WOODYARD OPERATOR Acute upper respiratory infections of unspecified site Pharyngitis acute 462 Active Elise Whitmore A PRN Acute pharyngitis Rhinitis, acute 460 Active Elise Whitmore APR N Acute nasopharyngitis [common cold] Sinusitis 473.9 Active Diya De Guzman WOODYARD OPERATOR Unspecified sinusitis (chronic) BRONCHITIS ICD-490 Inactive Hugo Restrepo MD 201 04/09/17 MAXILLARY SINUSITIS ICD-473.0 Inactive Marcy De La Rosa MD PhD BRONCHITIS, ACUTE WITH MILD BRONCHOSPASM ICD-466.0 Inactive Marcy De La Rosa MD PhD DYSPNEA ICD-786.05 Inactive Maryc De La Rosa MD [facility] [...] Generic Name NDC Status Provider Patient Instruction ASMANEX 60 METERED DOSES 220 MCG/INH AEPB 1 puff bid with ri nse after MOMETASONE FUROATE [id number] Active Elise Whitmore APRN Active FLUTICASONE PROPIONATE 50 MCG/ACT SUSP 2 sprays each n ostril daily until bottle is empty FLUTICASONE PROPIONATE 51388313091 Active Lyndsay Whitmore APRN Active ZITHROMAX Z-REYNA 250 MG TABS 2 today, then 1 daily for 4 days 201 09/29/14 AZITHROMYCIN 63818542720 No Longer Active Elise Whitmore APRN Active TUSSIONEX PENNKINETIC ER 10-8 MG/5ML LQCR 5ml po q12hr PRN Cough HYDROCOD POLST-CHLORPHEN POLST 50945383822 No Longer Active Elise Whitmore APRN Active MUCINEX D 60-600 MG [id number] 1 tab po q am PSEUDOEPHEDRINE-GUAIFENESIN 21037735739 Active Jillina Frazell WOODYARD 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 PREDNISONE 20 MG TAB 2 tabs daily for 3 days, 1 t ab daily for 3 days, 1/2 tab daily for 2 days PREDNISONE 40255084255 No Longer Active Jillina Frazell WOODYARD 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 AMOXICILLIN 500 MG CAPS 2 po BID x 10 days AMOX ICILLIN 27507032410 No Longer Active Jillina Frazell WOODYARD 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 SINGULAIR 10 MG TABS 1 po qday for allergies 2 MONTELUKAST SODIUM 16812779228 No Longer Active Carlton Hu MD Acti ve LEVAQUIN 500 MG TAB 1 tablet by mouth daily LEV OFLOXACIN 66177556323 No Longer Active Carlton Hu MD Active FLUTICASONE PROPIONATE 50 MCG/ACT SUSP 2 sprays each n ostril daily for 2 weeks, then 1 spray each nostril daily. FLUTICASONE PRO PIONATE 60274666283 Active Elise Whitmore APRN Active ZITHROMAX 250 MG TAB 2 po today, then 1 po q days 2-5 AZITHROMYCIN 76379141909 No Longer Active Elise Whitmore APRN Acti ve XANAX 0.5 MG TABS one tablet by mouth daily prn anxiety ALPRAZOLAM 79309168106 Active Elise Whitmore APRN Active CYMBALTA 30 MG CPEP 1 cap by mouth daily for depression DULOXETINE HCL 50488135969 Active Carlton Hu MD Active CEFDINIR 300 MG CAPS 1 po BID x 10 days CEFDINI R 09951571776 No Longer Active Carlton Hu MD Active ZOCOR 40 MG TAB 1 tab by mouth daily SIMVASTATI N 94965251203 No Longer Active Carlton Hu MD Active CYCLOBENZAPRINE HCL 10 MG TABS 1 tablet by mouth BID prn had cherelle n CYCLOBENZAPRINE HCL 36827200826 No Longer Active Carlton Hu MD Active LEVOFLOXACIN 500 MG ORAL TABS 1 tab PO daily x 10 days LEVOFLOXACIN 79593233444 No Longer Active Carlton Hu MD Acti ve PREDNISONE 20 MG ORAL TABS 3 tab PO qd x 2d, 2 tab PO qd x 2d, 1 tab PO qd x 2d, 1/2 tab PO qd x 2d PREDNISONE 76107824972 No Longer Active Carlton Hu MD Active TUSSIONEX PENNKINETIC ER 10-8 MG/5ML ORAL LQCR 5 mL PO q 12 hrs PRN cough HYDROCOD POLST-CHLORPHEN POLST 91779633619 Active Elise Whitmore APRN Active FLUTICASONE PROPIONATE 50 MCG/ACT SUSP 1 to 2 sprays each no stril daily FLUTICASONE PROPIONATE 67190270163 No Longer Active T homas W Cloven PA Active CHERATUSSIN AC 100-10 MG/5ML SYRP 1 tsp by mouth every 4 hours as needed for cough GUAIFENESIN-CODEINE 41100730092 No Longer Activ e Blaine HERNANDEZ Active PROMETHAZINE-CODEINE 6.25-10 MG/5ML SYRP 1 tsp by mout h every 6 hours if needed for cough PROMETHAZINE-CODEINE 94794832414 No Long er Active Blaine HERNANDEZ Active CHERATUSSIN AC 100-10 MG/5ML SYRP 1 tsp by mouth every 4 hours as needed for cough GUAIFENESIN-CODEINE 88370986042 No Longer Activ e Blaine HERNANDEZ Active ZITHROMAX Z-REYNA 250 MG TABS 2 today, then 1 daily for 4 days 201 08/30/03 AZITHROMYCIN 06477813004 No Longer Active Columba Raida Act nael ZITHROMAX 250 MG TAB 2 po today, then 1 po q days 2-5 AZITHROMYCIN 62930671826 No Longer Active Carlton Hu MD Acti ve ZITHROMAX Z-REYNA 250 MG TABS 2 today, then 1 daily for 4 days 201 08/07/20 AZITHROMYCIN 57194573625 No Longer Active Columba Raida Act nael AUGMENTIN 875-125 MG TAB 1 po BID x 10 days AMOXICILLIN- POT CLAVULANATE 73981507704 No Longer Active Diya De Guzman APRN Active ZITHROMAX 250 MG TAB 2 po today, then 1 po q days 2-5 AZITHROMYCIN 05306255837 No Longer Active Carlton Hu MD Acti ve TRAMADOL HCL 50 MG TABS 1 po tid with ES Tylenol TRAMADOL HCL 42581169657 Active Carlton Hu MD Active PREMARIN 0.625 MG TABS TAKE 1 TAB BY MOUTH DAILY 07/25 ESTROGENS CONJUGATED 36314085136 No Longer Active Ridge Bess DO Active CYMBALTA 30 MG CPEP 1 cap by mouth daily DULOXE SNEHA HCL 82616176804 No Longer Active Ridge Bess DO Active AMOXICILLIN 500 MG CAP 1 tab by mouth 3 times daily x 10 days 20 14/04/28 AMOXICILLIN 24822325162 No Longer Active Carlton Hu MD Active AMOXICILLIN 500 MG CAP 1 tab by mouth 3 times daily x 10 days 20 13/03/08 AMOXICILLIN 65882521043 No Longer Active Carlton Hu MD Active PROMETHAZINE-CODEINE 6.25-10 MG/5ML SYRP 1 tsp by mouth ever y 8 hours prn cough PROMETHAZINE-CODEINE 71249549748 No Longer Active Robert Hu MD Active MEDROL (REYNA) 4 MG TABS 6 pills x 1 day, then 5 pill s x 1 day then 4 pills x 1 day, then 3 pills x 1 day, then 2 pills x 1 day, then 1 pill x 1 day, then stop METHYLPREDNISOLONE 97218529706 No Longer Active Parris Mora MD Active AZITHROMYCIN 250 MG TABS 2 po qd x 1 day, then 1 po qd x 4 days AZITHROMYCIN 35050173066 No Longer Active Perez Mora MD Active SYMBICORT 160-4.5 MCG/ACT AERO 2 puffs bid with rinse after 2011 BUDESONIDE-FORMOTEROL FUMARATE 16987243707 No Longer Active Perez Mora MD Active LYRICA 75 MG CAPS TAKE 1 CAPSULE BY MOUTH TWICE DAILY 2013 PREGABALIN 79518559789 No Longer Active Carlton Hu MD Active LYRICA 100 MG CAPS Take 1 tab po BID for fibromyalgia PREGABALIN 59211565752 Active Carlton Hu MD Active TOPAMAX 25 MG TABS 1 qHS x 1 week, then 1 BID x 1 week, then 1 qAM and 2 qHS x 1 week, then 2 BID (migraine prevention) TOPIRAMAT E 99600901217 No Longer Active Jerica FUENTES Active TOPAMAX 50 MG TABS take 1 tab po BID for migraines. 12/07/10 TOPIRAMATE 75024316664 No Longer Active Jerica Osei RMA Ac tive TOPAMAX 100 MG TABS Take 1 tablet po bid TOPIRAMATE 4999 3117839 Active Elise Whitmore WOODYARD 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 TRIAMCINOLONE ACETONIDE 0.1 % CREA apply three times daily prn r beatrice TRIAMCINOLONE ACETONIDE 19596574020 No Longer Active Carlton Hu MD Active PAXIL 40 MG TAB take 1 tab po qday for depression PAROXETINE HCL 16796475967 Active Elise Whitmore APRN Active CHERATUSSIN AC 100-10 MG/5ML SYRP 5ml po q6hr PRN Cough GUAIFENESIN-CODEINE 55730192535 No Longer Active Carlton Hu MD Active MEDROL (REYNA) 4 MG TABS 6 tabs on day 1, 5 tabs on d ay 2, 4 tabs on day 3, 3 tabs on day 4, 2 tabs on day 5, 1 tab on day 6 METHYLPREDNISOLONE 63637188730 No Longer Active Perez Mora MD Active AZITHROMYCIN 250 MG TABS 2 po qd x 1 day, then 1 po qd x 4 days AZITHROMYCIN 16906380668 No Longer Active Perez Mora MD Active PROPRANOLOL HCL 60 MG TABS 1 PO Q D PROPRANOL OL HCL 24856422912 No Longer Active Perez Mora MD Active CHERATUSSIN AC 100-10 MG/5ML SYRP take one tsp po Q 6hours prn c ough GUAIFENESIN-CODEINE 09070593639 No Longer Active Perez Means Active AUGMENTIN 875-125 MG TAB 1 tab by mouth twice daily with food 20 12/03/31 AMOXICILLIN-POT CLAVULANATE 47714011414 No Longer Active Chanel Mora MD Active CHERATUSSIN AC 100-10 MG/5ML SYRP 1 tsp by mouth every 4 hours as needed for cough GUAIFENESIN-CODEINE 04892740483 No Longer Activ e Hugo Restrepo MD Active ACETAMINOPHEN-CODEINE #3 300-30 MG TABS 1 PO Q 4-6 HRS PRN PAIN ACETAMINOPHEN-CODEINE 51844376918 No Longer Active Hugo Restrepo MD Active LEVAQUIN 500 MG TABS take one po QD LEVOFLOXACI N 26470352740 No Longer Active Griffin HERNANDEZ Active PREDNISONE 20 MG TAB Take 3 tabs daily for 3 days , 2 tabs daily for 3 days, 1 tab daily for 3 days, 1/2 tab daily for 3 days P REDNISONE 04220648690 No Longer Active Carlton Hu MD Active AVELOX 400 MG TABS 1 tab by mouth daily MOXIFLO XACIN HCL 66228123860 No Longer Active Carlton Hu MD Active CHERATUSSIN AC 100-10 MG/5ML SYRP 1 tsp by mouth every 4 hours as needed for cough GUAIFENESIN-CODEINE 29202552915 No Longer Activ e Hugo Restrepo MD Active AVELOX 400 MG TABS 1 tab by mouth daily MOXIFLO XACIN HCL 53979063766 No Longer Active Marcy De La Rosa MD PhD Active TERBINAFINE HCL 250 MG TABS 1 qDay TERBINAF INE HCL 97019248619 No Longer Active Marcy De La Rosa MD PhD Active CHERATUSSIN AC 100-10 MG/5ML SYRP 1 tsp by mouth every 4 hours as needed for cough GUAIFENESIN-CODEINE 20498410273 No Longer Activ e Marcy De La Rosa MD PhD Active AVELOX 400 MG TABS 1 tab by mouth daily MOXIFLO XACIN HCL 51823986854 No Longer Active Marcy De La Rosa MD PhD Active HYDROCODONE-ACETAMINOPHEN 5-325 MG TABS 1 po q 6hr PRN cough 201 05/09/16 HYDROCODONE-ACETAMINOPHEN 34830210614 No Longer Active Marcy De La Rosa MD PhD Active PREDNISONE 20 MG TAB 2 tabs daily for 3 days, 1 t ab daily for 3 days, 1/2 tab daily for 2 days PREDNISONE 74271638149 No Longer Active Carlton Hu MD Active CEFDINIR 300 MG CAPS by mouth twice a day CEFDI ODILIA 45457393519 No Longer Active Carlton Hu MD Active HYDROCHLOROTHIAZIDE 25 MG TABS 1 TAB PO DAILY H YDROCHLOROTHIAZIDE 32188214376 Active Carlton Hu MD Active ACETAMINOPHEN-CODEINE #3 300-30 MG TABS 1 tablet po q 4-6hrs prn pain ACETAMINOPHEN-CODEINE 75235681561 No Longer Active Ridge Bess DO Active ZITHROMAX 250 MG TAB 2 po today, then 1 po q days 2-5 AZITHROMYCIN 18406731457 No Longer Active Carlton Hu MD Acti ve CHERATUSSIN AC 100-10 MG/5ML SYRP take 1 tsp po q4-6 hours prn c ough GUAIFENESIN-CODEINE 41949653308 No Longer Active Carlton Hu MD Active ACETAMINOPHEN-CODEINE #3 300-30 MG TABS 1 PO Q 4-6 HR PRN PAIN 2 ACETAMINOPHEN-CODEINE 15486940840 No Longer Active Carlton rich MD Active LORTAB 7.5-500 MG/15ML ELIX 7.5 ml po q 4 hour prn cough HYDROCODONE-ACETAMINOPHEN 63683065715 No Longer Active Carlton Hu MD Active PREDNISONE 20 MG TAB 1 po bid 3 days, then 1 po q day 3 days 201 05/03/07 PREDNISONE 30177664339 No Longer Active Carlton Hu MD Active ELMIRON 100 MG CAPS 2 tablets in the am and 1 tablet at hs PENTOSAN POLYSULFATE SODIUM 47008764127 Active Carlton Hu MD Ac tive CEFDINIR 300 MG CAPS by mouth twice a day CEFDI ODILIA 08029317318 No Longer Active Carlton Hu MD Active CEFDINIR 300 MG CAPS by mouth twice a day CEFDI ODILIA 66849877488 No Longer Active Carlton Hu MD Active CEFDINIR 300 MG CAPS by mouth twice a day CEFDI ODILIA 66249056567 No Longer Active Carlton Hu MD Active TESSALON PERLES 100 MG CAP 1 tablet by mouth 3 times daily a s needed for cough BENZONATATE 90901857399 No Longer Active Carlton bustamante MD Active CEFDINIR 300 MG CAPS by mouth twice a day CEFDI ODILIA 04481958008 No Longer Active Carlton Hu MD Active ZITHROMAX Z-REYNA 250 MG TABS 2 today, then 1 daily for 4 days 201 04/09/17 AZITHROMYCIN 26730654537 No Longer Active Hugo Restrepo MD Active TESSALON PERLES 100 MG CAP 1 tablet by mouth 3 times daily a s needed for cough TESSALON PERLES 100 MG CAP 048314 BENZONATATE I nactive PREDNISONE 20 MG TAB 1 po bid 3 days, then 1 po q day 3 days 201 05/03/07 PREDNISONE 20 MG TAB 621731 PREDNISONE Inactive LORTAB 7.5-500 MG/15ML ELIX 7.5 ml po q 4 hour prn cough LORTAB 7.5-500 MG/15ML ELIX HYDROCODONE-ACETAMINOPHEN Inacti ve ACETAMINOPHEN-CODEINE #3 300-30 MG TABS 1 PO Q 4-6 HR PRN PAIN 2 ACETAMINOPHEN-CODEINE #3 300-30 MG TABS 208930 ACETAMIN OPHEN-CODEINE Inactive CHERATUSSIN AC 100-10 MG/5ML SYRP take 1 tsp po q4-6 hours prn c ough CHERATUSSIN AC 100-10 MG/5ML SYRP 969154 GUAIFENESIN-CO DEINE Inactive ACETAMINOPHEN-CODEINE #3 300-30 MG TABS 1 tablet po q 4-6hrs prn pain ACETAMINOPHEN-CODEINE #3 300-30 MG TABS 053197 ACETAMIN OPHEN-CODEINE Inactive HYDROCODONE-ACETAMINOPHEN 5-325 MG TABS 1 po q 6hr PRN cough 201 05/09/16 HYDROCODONE-ACETAMINOPHEN 5-325 MG TABS 826781 HYDROCODONE-ACETAMINOPHEN Inactive AVELOX 400 MG TABS 1 tab by mouth daily A VELOX 400 MG TABS 635893 MOXIFLOXACIN HCL Inactive CHERATUSSIN AC 100-10 MG/5ML SYRP 1 tsp by mouth every 4 hours as needed for cough CHERATUSSIN AC 100-10 MG/5ML SYRP 713697 GUAIFENESIN-CODEINE Inactive TERBINAFINE HCL 250 MG TABS 1 qDay TERBINAFINE HCL 250 MG TABS 715127 TERBINAFINE HCL Inactive CHERATUSSIN AC 100-10 MG/5ML SYRP 1 tsp by mouth every 4 hours as needed for cough CHERATUSSIN AC 100-10 MG/5ML SYRP 834523 GUAIFENESIN-CODEINE Inactive ACETAMINOPHEN-CODEINE #3 300-30 MG TABS 1 PO Q 4-6 HRS PRN PAIN ACETAMINOPHEN-CODEINE #3 300-30 MG TABS 568925 ACETAMINOPHEN-CODEIN E Inactive CHERATUSSIN AC 100-10 MG/5ML SYRP 1 tsp by mouth every 4 hours as needed for cough CHERATUSSIN AC 100-10 MG/5ML SYRP 353755 GUAIFENESIN-CODEINE Inactive AUGMENTIN 875-125 MG TAB 1 tab by mouth twice daily with food 20 12/03/31 AUGMENTIN 875-125 MG TAB 690803 AMOXICILLIN-POT CLAVULA EFE Inactive CHERATUSSIN AC 100-10 MG/5ML SYRP take one tsp po Q 6hours prn c ough CHERATUSSIN AC 100-10 MG/5ML SYRP 846533 GUAIFENESIN-CO DEINE Inactive PROPRANOLOL HCL 60 MG TABS 1 PO Q D P ROPRANOLOL HCL 60 MG TABS 547032 PROPRANOLOL HCL Inactive TOPAMAX 50 MG TABS take 1 tab po BID for migraines. 12/07/10 TOPAMAX 50 MG TABS 312698 TOPIRAMATE Inactive TOPAMAX 25 MG TABS 1 qHS x 1 week, then 1 BID x 1 week, then 1 qAM and 2 qHS x 1 week, then 2 BID (migraine prevention) TOPAMAX 2 5 MG TABS 090394 TOPIRAMATE Inactive LYRICA 75 MG CAPS TAKE 1 CAPSULE BY MOUTH TWICE DAILY LYRICA 75 MG CAPS PREGABALIN Inactive SYMBICORT 160-4.5 MCG/ACT AERO 2 puffs bid with rinse after 2011 SYMBICORT 160-4.5 MCG/ACT AERO BUDESONIDE-FORMOT SÁNCHEZ FUMARATE Inactive PROMETHAZINE-CODEINE 6.25-10 MG/5ML SYRP 1 tsp by mouth ever y 8 hours prn cough PROMETHAZINE-CODEINE 6.25-10 MG/5ML SYRP 037282 PROMETHAZINE-CODEINE Inactive CYMBALTA 30 MG CPEP 1 cap by mouth daily CYMBALTA 30 MG CPEP 285410 DULOXETINE HCL Inactive PREMARIN 0.625 MG TABS TAKE 1 TAB BY MOUTH DAILY 07/25 PREMARIN 0.625 MG TABS ESTROGENS CONJUGATED Inactive CHERATUSSIN AC 100-10 MG/5ML SYRP 1 tsp by mouth every 4 hours as needed for cough CHERATUSSIN AC 100-10 MG/5ML SYRP 108006 GUAIFENESIN-CODEINE Inactive PROMETHAZINE-CODEINE 6.25-10 MG/5ML SYRP 1 tsp by mout h every 6 hours if needed for cough PROMETHAZINE-CODEINE 6.25-10 MG/5ML SYRP 653793 PROMETHAZINE-CODEINE Inactive CHERATUSSIN AC 100-10 MG/5ML SYRP 1 tsp by mouth every 4 hours as needed for cough CHERATUSSIN AC 100-10 MG/5ML SYRP 466364 GUAIFENESIN-CODEINE Inactive FLUTICASONE PROPIONATE 50 MCG/ACT SUSP 1 to 2 sprays each no stril daily FLUTICASONE PROPIONATE 50 MCG/ACT SUSP 1608261 FLUTICASONE PROPIONATE Inactive PREDNISONE 20 MG ORAL TABS 3 tab PO qd x 2d, 2 tab PO qd x 2d, 1 tab PO qd x 2d, 1/2 tab PO qd x 2d PREDNISONE 20 MG ORAL TABS 461920 PREDNISONE Inactive LEVOFLOXACIN 500 MG ORAL TABS 1 tab PO daily x 10 days LEVOFLOXACIN 500 MG ORAL TABS 911373 LEVOFLOXACIN Inactive CYCLOBENZAPRINE HCL 10 MG TABS 1 tablet by mouth BID prn had cherelle n CYCLOBENZAPRINE HCL 10 MG TABS 673283 CYCLOBENZAPRINE H CL Inactive ZOCOR 40 MG TAB 1 tab by mouth daily ZOCOR 40 M G TAB 647891 SIMVASTATIN Inactive TUSSIONEX PENNKINETIC ER 10-8 MG/5ML LQCR 5ml po q12hr PRN Cough TUSSIONEX PENNKINETIC ER 10-8 MG/5ML LQCR HYDROCOD POLST-CHLORPHEN POLST Inactive ZITHROMAX Z-REYNA 250 MG TABS 2 today, then 1 daily for 4 days 201 04/09/17 ZITHROMAX Z-REYNA 250 MG TABS 1318931 AZITHROMYCIN Inac tive CEFDINIR 300 MG CAPS [...] q days 2-5 ZITHROMAX 250 MG TAB 1670632 AZITHROMYCIN Inactive CEFDINIR 300 MG CAPS by mouth twice a day CEFDINIR 300 MG CAPS 20020704 CEFDINIR Inactive PREDNISONE 20 MG TAB 2 tabs daily for 3 days, 1 t ab daily for 3 days, 1/2 tab daily for 2 days PREDNISONE 20 MG TAB 175549 PREDNISON E Inactive AVELOX 400 MG TABS 1 tab by mouth daily A VELOX 400 MG TABS 364281 MOXIFLOXACIN HCL Inactive AVELOX 400 MG TABS 1 tab by mouth daily A VELOX 400 MG TABS 112184 MOXIFLOXACIN HCL Inactive PREDNISONE 20 MG TAB Take 3 tabs daily for 3 days , 2 tabs daily for 3 days, 1 tab daily for 3 days, 1/2 tab daily for 3 days PREDNISONE 20 MG TAB 954964 PREDNISONE Inactive LEVAQUIN 500 MG TABS take one po QD LEVAQUIN 50 0 MG TABS 159268 LEVOFLOXACIN Inactive AZITHROMYCIN 250 MG TABS 2 po qd x 1 day, then 1 po qd x 4 days AZITHROMYCIN 250 MG TABS 5052846 AZITHROMYCIN Inactiv e MEDROL (REYNA) 4 MG TABS 6 tabs on day 1, 5 tabs on d ay 2, 4 tabs on day 3, 3 tabs on day 4, 2 tabs on day 5, 1 tab on day 6 MEDROL (REYNA) 4 MG TABS 402183 METHYLPREDNISOLONE Inactive CHERATUSSIN AC 100-10 MG/5ML SYRP 5ml po q6hr PRN Cough CHERATUSSIN AC 100-10 MG/5ML SYRP 648210 GUAIFENESIN-CODEINE Inacti ve TRIAMCINOLONE ACETONIDE 0.1 % CREA apply three times daily prn r beatrice TRIAMCINOLONE ACETONIDE 0.1 % [facility] 0785007 TRIAMCINOLONE ACETONIDE Inactive AZITHROMYCIN 250 MG TABS 2 po qd x 1 day, then 1 po qd x 4 days AZITHROMYCIN 250 MG TABS 2296010 AZITHROMYCIN Inactiv e MEDROL (REYNA) 4 MG TABS 6 pills x 1 day, then 5 pill s x 1 day then 4 pills x 1 day, then 3 pills x 1 day, then 2 pills x 1 day, then 1 pill x 1 day, then stop MEDROL (REYNA) 4 MG TABS 436031 METHYLPREDNISOLONE Inactive AMOXICILLIN 500 MG CAP 1 tab by mouth 3 times daily x 10 days 20 13/03/08 AMOXICILLIN 500 MG CAP 849997 AMOXICILLIN Inactive AMOXICILLIN 500 MG CAP 1 tab by mouth 3 times daily x 10 days 20 14/04/28 AMOXICILLIN 500 MG CAP 008330 AMOXICILLIN Inactive ZITHROMAX 250 MG TAB 2 po today, then 1 po q days 2-5 ZITHROMAX 250 MG TAB 4031526 AZITHROMYCIN Inactive AUGMENTIN 875-125 MG TAB 1 po BID x 10 days AUGMENTIN 875- 125 MG TAB 366946 AMOXICILLIN-POT CLAVULANATE Inactive ZITHROMAX Z-REYNA 250 MG TABS 2 today, then 1 daily for 4 days 201 08/07/20 ZITHROMAX Z-REYNA 250 MG TABS 6722300 AZITHROMYCIN Inac tive ZITHROMAX 250 MG TAB 2 po today, then 1 po q days 2-5 ZITHROMAX 250 MG TAB 2911812 AZITHROMYCIN Inactive ZITHROMAX Z-REYNA 250 MG TABS 2 today, then 1 daily for 4 days 201 08/30/03 ZITHROMAX Z-REYNA 250 MG TABS 4856813 AZITHROMYCIN Inac tive CEFDINIR 300 MG CAPS 1 po BID x 10 days C EFDINIR 300 MG CAPS 566772 CEFDINIR Inactive ZITHROMAX 250 MG TAB 2 po today, then 1 po q days 2-5 ZITHROMAX 250 MG TAB 8749093 AZITHROMYCIN Inactive LEVAQUIN 500 MG TAB 1 tablet by mouth daily LEVAQUIN 500 MG TAB 562660 LEVOFLOXACIN Inactive SINGULAIR 10 MG TABS 1 po qday for allergies 2 SINGULAIR 10 MG TABS 20010504 MONTELUKAST SODIUM Inactive AMOXICILLIN 500 MG CAPS 2 po BID x 10 days AMOXICILLIN 500 MG CAPS 898931 AMOXICILLIN Inactive PREDNISONE 20 MG TAB 2 tabs daily for 3 days, 1 t ab daily for 3 days, 1/2 tab daily for 2 days PREDNISONE 20 MG TAB 427452 PREDNISON E Inactive ZITHROMAX Z-REYNA 250 MG TABS 2 today, then 1 daily for 4 days 201 09/29/14 ZITHROMAX Z-REYNA 250 MG TABS 4346888 AZITHROMYCIN Inac tive Vital Signs Date Name [...] Measured Encounters Code Encounter Date Provider Facility CPT-77050 Level 3 Est. Patient 14:22:19 LOCOMOTIVE MECHANIC Diya cobian [facility] CPT-39655 Level 3 Est. Patient 10:11:46 CDT Carlton rich MD [facility] CPT-86571 Level 3 Est. Patient 17:29:43 CDT Italo WOODYARD OPERATOR [facility] CPT-60473 Level 3 Est. Patient 11:58:06 CDT Italo WOODYARD OPERATOR [facility] CPT-40781 Level 4 Est. Patient 14:36:51 CDT Carlton rich MD [facility] CPT-98315 Level 3 Est. Patient 18:16:00 LOCOMOTIVE MECHANIC Blaine HERNANDEZ [facility] CPT-44022 Level 3 Est. Patient 09:45:49 LOCOMOTIVE MECHANIC [facility] Level 3 Est. Patient 13:19:20 CDT Carlton rich MD [facility]-[id number] Level 3 Est. Patient 13:06:43 CDT Ridge tam DO [facility] CPT-69737 Level 3 Est. Patient 10:03:07 CDT Perez Mora MD [facility] CPT-50030 Level 3 Est. Patient 19:50:35 LOCOMOTIVE MECHANIC Carlton rich MD [facility] CPT-69213 Level 4 Est. Patient 18:05:01 LOCOMOTIVE MECHANIC Carlton rich MD [facility]-[id number] Level 3 Est. Patient 10:45:55 LOCOMOTIVE MECHANIC Hugo Restrepo MD [facility]-[id number] Level 3 Est. Patient 14:12:49 CDT Griffin HERNANDEZ [facility] CPT-51523 Level 3 Est. Patient 17:37:24 CDT Carlton rich MD [facility]-[id number] Level 3 Est. Patient 16:51:54 CDT Carlton rich MD [facility]-[id number] Level 3 Est. Patient 12:18:11 CDT Hugo Restrepo MD [facility] CPT-75107 Level 3 Est. Patient 11:30:25 CDT Marcy crisostomo MD PhD [facility] CPT-11339 Level 3 Est. Patient 12:00:47 LOCOMOTIVE MECHANIC Carlton rich MD [facility]-[id number] Level 3 Est. Patient 16:31:06 LOCOMOTIVE MECHANIC Carlton rich MD [facility]-[id number] Level 3 Est. Patient 16:23:24 LOCOMOTIVE MECHANIC Ridge tam DO [facility]-[id number] Level 3 Est. Patient 12:34:12 CDT Carlton irch MD [facility] CPT-62868 Level 2 Est. Patient 15:43:33 CDT Robi armstrong MD [facility] CPT-92698 Level 4 Est. Patient 14:04:44 CDT Carlton rich MD [facility] CPT-81272 Level 3 Est. Patient 05:47:59 CDT Ridge Jaun Celeste tam DO [facility] CPT-00643 Level 3 Est. Patient 13:12:53 LOCOMOTIVE MECHANIC Carlton rich MD [facility] CPT-81321 Level 3 Est. Patient 14:26:53 CDT Hugo Restrepo MD [facility] Procedures Code Procedure Name Date Entry Date Standard Desc ription CPT-J0696 Rocephin 1gm Inj Solr 14:32:13 CDT CPT-J1020 Depo Medrol 60 mg (Methyl Prednisolone A cetate) 14:32:13 CDT CPT-J1100 Decadron 6mg (Dexamethasone) 14:32:13 CDT 2 CPT-16910 Hip bilat min 2V w AP pelvis 13:16:20 CDT 2 CPT-62591 Pelvis only 13:07:33 CDT CPT-08897 Spec Collection and Handling Fee 11:25:12 C DT CPT-42046 Fluzone Quadrivalent Intramuscular Suspe nsion 0.5 ML 14:31:55 CDT CPT-77939 Abx/Therapy Injection 13:28:47 LOCOMOTIVE MECHANIC CPT-J2930 Solu Medrol 125 mg (Methyl Prednisolone Sodium Succinate) 12:00:47 LOCOMOTIVE MECHANIC CPT-39454 Venipuncture Draw Fee 11:33:31 CDT CPT-03829 EKG Trac and Interp 11:21:09 CDT CPT-33447 Chest 2V Frontal and Lat 11:21:09 CDT 12/15 CPT-04754 Venipuncture Draw Fee 08:02:34 CDT CPT-45988 Chest 2V Frontal and Lat 05:47:59 CDT 06/05
--- OUTSIDE RECORDS SUMMARY | 2019-10-08 08:14 | XMS REPORT | Clinical Summary ---
Author Author Caitlin, Juliana Martinez Organization [facility] Address Unknown Phone Unavailable Allergies, Adverse [...] Hugo Restrepo MD Bronchitis ICD-490 Inactive Hugo Resrtepo MD 201 10/02/29 Medication List Medication Instructions Start Date Stop Date Generic Name NDC Status Provider Patient Instruction TERBINAFINE HCL 250 MG ORAL TABLET 1 qDay for nail fungus 7 TERBINAFINE HCL [id number] No Longer Active Carlton Hu MD A ctive TUSSIONEX PENNKINETIC ER 10-8 MG/5ML ORAL SUSPENSION E XTENDED RELEASE 5ml po q12hr PRN Cough HYDROCOD POLST-CHLORPHEN POLST 07887414877 Active Carlton Hu MD Active PREDNISONE 20 MG ORAL TABLET 1 tab twice daily for 3 d ay, then one daily for three days PREDNISONE 54845902946 Active Carlton Hu MD Active AMOXICILLIN 500 MG ORAL CAPSULE 1 cap by mouth three times a day AMOXICILLIN 26531686127 No Longer Active Carlton Hu MD Active ELMIRON 100 MG ORAL CAPSULE 2 tablets in the am and 1 tablet at hs PENTOSAN POLYSULFATE SODIUM 22904481523 No Longer Active Robert jade Hu MD Active MUCINEX D 60-600 MG ORAL TABLET EXTENDED RELEASE 12 HOUR 1 t ab po q am PSEUDOEPHEDRINE-GUAIFENESIN 01324897616 No Longer Act nael Carlton Hu MD Active MUCINEX DM MAXIMUM STRENGTH 60-1200 MG ORAL TABLET EXT ENDED RELEASE 12 HOUR 1 tab po q am DEXTROMETHORPHAN-GUAIFENESIN 11080569026 No Longer Active Carlton Hu MD Active TUSSIONEX PENNKINETIC ER 10-8 MG/5ML ORAL SUSPENSION E XTENDED RELEASE 5ml po q12hr PRN Cough HYDROCOD POLST-CHLORPHEN POLST 5 1756152516 No Longer Active Carlton Hu MD Active POTASSIUM CHLORIDE ER 20 MEQ ORAL TABLET EXTENDED RELE ASE Take 1 by mouth 4 times daily for 7 days POTASSIUM CHLORIDE 78040444111 No Longer Active Carlton Hu MD Active ZITHROMAX 250 MG ORAL TABLET 2 po today, then 1 po q days 2-5 20 14/09/04 AZITHROMYCIN 74645180762 No Longer Active Elise Whitmore APRN Active TUSSIONEX PENNKINETIC ER 10-8 MG/5ML ORAL SUSPENSION E XTENDED RELEASE 5 ml twice a day as needed for cough HYDROCOD POLST-CHLORPH EN POLST 93780675705 No Longer Active Elise Whitmore APRN Active MONTELUKAST SODIUM 10 MG ORAL TABLET 1 po daily for Allergy MONTELUKAST SODIUM 00430686859 Active Carlton Hu MD Ac tive TUSSIONEX PENNKINETIC ER 10-8 MG/5ML ORAL SUSPENSION E XTENDED RELEASE 5ml po q12hr PRN Cough HYDROCOD POLST-CHLORPHEN POLST 5 7597488780 No Longer Active Hugo Restrepo MD Active GABAPENTIN 100 MG ORAL CAPSULE 1 po BID for fibromyalgia GABAPENTIN 87059086738 Active Carlton Hu MD Active LYRICA 100 MG ORAL CAPSULE Take 1 tab po BID for fibromyalgia 20 11/08/21 PREGABALIN 81306845822 No Longer Active Elise Whitmore APRN Active PROAIR HFA 108 (90 Base) MCG/ACT INHALATION AEROSOL SO LUTION 2 puffs four times a day as needed ALBUTEROL SULFATE 30909458073 Active Lyndsay Whitmore APRN Active PREDNISONE 20 MG ORAL TABLET 2 tabs daily for 3 days, 1 tab daily for 3 days, 1/2 tab daily for 2 days PREDNISONE 08329720051 No Longer Active Jillina Frazelbhakti KHAN Active TUSSIONEX PENNKINETIC ER 10-8 MG/5ML ORAL SUSPENSION E XTENDED RELEASE 5 mL PO q 12 hrs PRN cough HYDROCOD POLST-CHLORPHEN POLST 755497 41902 No Longer Active Jillina Frazell BILL Active FLUTICASONE PROPIONATE 50 MCG/ACT NASAL SUSPENSION 2 s prays each nostril daily until bottle is empty FLUTICASONE PROPIONATE 218193322 99 No Longer Active Jillina Frazell RETAIL [employer]PARTMENT RESET Active ASMANEX 60 METERED DOSES 220 MCG/INH INHALATION AEROSO L POWDER BREATH ACTIVATED 1 puff bid with rinse after MOMETASONE FUROATE 3713982 4102 No Longer Active Jillina Frazell RETAIL DEPARTMENT RESET Active ZITHROMAX Z-REYNA 250 MG ORAL TABLET 2 today, then 1 daily for 4 d ays AZITHROMYCIN 47830804853 No Longer Active Elise Whitmore APRN Active TUSSIONEX PENNKINETIC ER 10-8 MG/5ML ORAL SUSPENSION E XTENDED RELEASE 5ml po q12hr PRN Cough HYDROCOD POLST-CHLORPHEN POLST 5 1176623114 No Longer Active Elise Whitmore APRN Active PREDNISONE 20 MG ORAL TABLET 2 tabs daily for 3 days, 1 tab daily for 3 days, 1/2 tab daily for 2 days PREDNISONE 67858852018 No Longer Active Diya De Guzman APRN Active AMOXICILLIN 500 MG ORAL CAPSULE 2 po BID x 10 days 201 09/29/08 AMOXICILLIN 60032677175 No Longer Active Jillina Frazell RET[employer]PART[employer] RESET Act nael SINGULAIR 10 MG ORAL TABLET 1 po qday for allergies 20 14/01/12 MONTELUKAST SODIUM 87641648634 No Longer Active Carlton Hu MD Active LEVAQUIN 500 MG ORAL TABLET 1 tablet by mouth daily 13/09/24 LEVOFLOXACIN 11549982948 No Longer Active Carlton Hu MD Acti ve FLUTICASONE PROPIONATE 50 MCG/ACT NASAL SUSPENSION 2 s prays each nostril daily for 2 weeks, then 1 spray each nostril daily. FLUTICASONE PROPIONATE 06449029751 Active Elise Whitmore APRN Active ZITHROMAX 250 MG ORAL TABLET 2 po today, then 1 po q days 2-5 20 13/08/10 AZITHROMYCIN 05366565119 No Longer Active Elise Whitmore APRN Active XANAX 0.5 MG ORAL TABLET one tablet by mouth daily prn anxiety 2015 ALPRAZOLAM 40728827893 Active Carlton Hu MD Active CYMBALTA 30 MG ORAL CAPSULE DELAYED RELEASE PARTICLES 1 cap by mouth daily for depression DULOXETINE HCL 43038481722 Active Carlton beltrán MD Active CEFDINIR 300 MG ORAL CAPSULE 1 po BID x 10 days CEFDINIR 10178436693 No Longer Active Carlton Hu MD Active ZOCOR 40 MG ORAL TABLET 1 tab by mouth daily SI MVASTATIN 55981294303 No Longer Active Carlton Hu MD Active CYCLOBENZAPRINE HCL 10 MG ORAL TABLET 1 tablet by mouth BID prn had pain CYCLOBENZAPRINE HCL 04425408909 No Longer Active Jayden Hu MD Active LEVOFLOXACIN 500 MG ORAL TABLET 1 tab PO daily x 10 days LEVOFLOXACIN 06176982995 No Longer Active Carlton Hu MD Acti ve PREDNISONE 20 MG ORAL TABLET 3 tab PO qd x 2d, 2 tab P O qd x 2d, 1 tab PO qd x 2d, 1/2 tab PO qd x 2d PREDNISONE 56908162622 No Lo nger Active Carlton Hu MD Active FLUTICASONE PROPIONATE 50 MCG/ACT NASAL SUSPENSION 1 t o 2 sprays each nostril daily FLUTICASONE PROPIONATE 40495708816 No Longer Ac tive Blaine HERNANDEZ Active CHERATUSSIN AC 100-10 MG/5ML ORAL SYRUP 1 tsp by mouth every 4 hours as needed for cough GUAIFENESIN-CODEINE 10075523893 No Longe r Active Blaine HERNANDEZ Active PROMETHAZINE-CODEINE 6.25-10 MG/5ML ORAL SYRUP 1 tsp b y mouth every 6 hours if needed for cough PROMETHAZINE-CODEINE 09894694141 No Longer Active Blaine HERNANDEZ Active CHERATUSSIN AC 100-10 MG/5ML ORAL SYRUP 1 tsp by mouth every 4 hours as needed for cough GUAIFENESIN-CODEINE 81414752039 No Longe r Active Blaine HERNANDEZ Active ZITHROMAX Z-REYNA 250 MG ORAL TABLET 2 today, then 1 daily for 4 d ays AZITHROMYCIN 02229988738 No Longer Active Columba Raida Act nael ZITHROMAX 250 MG ORAL TABLET 2 po today, then 1 po q days 2-5 20 14/03/21 AZITHROMYCIN 81681499349 No Longer Active Carlton Hu MD Active ZITHROMAX Z-REYNA 250 MG ORAL TABLET 2 today, then 1 daily for 4 d ays AZITHROMYCIN 34066840732 No Longer Active Columba Raida Act nael AUGMENTIN 875-125 MG ORAL TABLET 1 po BID x 10 days 20 13/01/20 AMOXICILLIN-POT CLAVULANATE 04970742494 No Longer Active Astridgreer Daphnebrayan KHAN Active ZITHROMAX 250 MG ORAL TABLET 2 po today, then 1 po q days 2-5 12/08/14 AZITHROMYCIN 78213552254 No Longer Active Carlton Hu MD Active TRAMADOL HCL 50 MG ORAL TABLET 1 po tid with ES Tylenol TRAMADOL HCL 83452279948 Active Carlton Hu MD Active PREMARIN 0.625 MG ORAL TABLET TAKE 1 TAB BY MOUTH DAILY ESTROGENS CONJUGATED 63874064074 No Longer Active Ridge Bess DO A ctive CYMBALTA 30 MG ORAL CAPSULE DELAYED RELEASE PARTICLES 1 cap by mouth daily DULOXETINE HCL 22561608668 No Longer Active Ridge tam DO Active AMOXICILLIN 500 MG ORAL CAPSULE 1 tab by mouth 3 times daily x 10 days AMOXICILLIN 86852072436 No Longer Active Carlton bustamante MD Active AMOXICILLIN 500 MG ORAL CAPSULE 1 tab by mouth 3 times daily x 10 days AMOXICILLIN 94583394057 No Longer Active Carlton bustamante MD Active PROMETHAZINE-CODEINE 6.25-10 MG/5ML ORAL SYRUP 1 tsp b y mouth every 8 hours prn cough PROMETHAZINE-CODEINE 34019376415 No Longer Acti ve Carlton Hu MD Active MEDROL 4 MG ORAL TABLET THERAPY PACK 6 pills x 1 day, then 5 pills x 1 day then 4 pills x 1 day, then 3 pills x 1 day, then 2 pills x 1 day, then 1 pill x 1 day, then stop METHYLPREDNISOLONE 27112279162 No Long er Active Perez Mora MD Active AZITHROMYCIN 250 MG ORAL TABLET 2 po qd x 1 day, then 1 po q d x 4 days AZITHROMYCIN 49226081391 No Longer Active Perez Ambriz MD Active SYMBICORT 160-4.5 MCG/ACT INHALATION AEROSOL 2 puffs bid wit h rinse after BUDESONIDE-FORMOTEROL FUMARATE 79895277249 N o Longer Active Perez Mora MD Active LYRICA 75 MG ORAL CAPSULE TAKE 1 CAPSULE BY MOUTH TWICE DAILY PREGABALIN 24375769401 No Longer Active Carlton Hu MD Acti ve TOPAMAX 25 MG ORAL TABLET 1 qHS x 1 week, then 1 BID x 1 week, then 1 qAM and 2 qHS x 1 week, then 2 BID (migraine prevention) T OPIRAMATE 67939522064 No Longer Active Jerica FUENTES Active TOPAMAX 50 MG ORAL TABLET take 1 tab po BID for migraines. 07/02 TOPIRAMATE 36145280023 No Longer Active Jerica FUENTES Active TOPAMAX 100 MG ORAL TABLET Take 1 tablet po bid TO PIRAMATE 20076774654 Active Carlton Hu MD Active TRIAMCINOLONE ACETONIDE 0.1 % EXTERNAL CREAM apply three roger es daily prn rash TRIAMCINOLONE ACETONIDE 72039816397 No Longer Active Carlton Hu MD Active PAXIL 40 MG ORAL TABLET take 1 tab po qday for depression 0 PAROXETINE HCL 53795849474 Active Carlton Hu MD Active CHERATUSSIN AC 100-10 MG/5ML ORAL SYRUP 5ml po q6hr PRN Cough 20 13/04/14 GUAIFENESIN-CODEINE 44013363318 No Longer Active Carlton Hu MD Active MEDROL 4 MG ORAL TABLET THERAPY PACK 6 tabs on day 1, 5 tabs on day 2, 4 tabs on day 3, 3 tabs on day 4, 2 tabs on day 5, 1 tab on day 6 2013 METHYLPREDNISOLONE 21264106944 No Longer Active Perez Mora MD Active AZITHROMYCIN 250 MG ORAL TABLET 2 po qd x 1 day, then 1 po q d x 4 days AZITHROMYCIN 59606999673 No Longer Active Perez Ambriz MD Active PROPRANOLOL HCL 60 MG ORAL TABLET 1 PO Q D PROPRANOLOL HCL 94753667984 No Longer Active Perez Mora MD Activ e CHERATUSSIN AC 100-10 MG/5ML ORAL SYRUP take one tsp po Q 6h ours prn cough GUAIFENESIN-CODEINE 42764415258 No Longer Active Zia Mora MD Active AUGMENTIN 875-125 MG ORAL TABLET 1 tab by mouth twice daily with food AMOXICILLIN-POT CLAVULANATE 91720958107 No Longer Act nael Mora MD Active CHERATUSSIN AC 100-10 MG/5ML ORAL SYRUP 1 tsp by mouth every 4 hours as needed for cough GUAIFENESIN-CODEINE 95502260260 No Longe r Active Hugo Restrepo MD Active ACETAMINOPHEN-CODEINE #3 300-30 MG ORAL TABLET 1 PO Q 4-6 HRS IA N PAIN ACETAMINOPHEN-CODEINE 64575202752 No Longer Active Hugo Restrepo MD Active LEVAQUIN 500 MG ORAL TABLET take one po QD LEVO FLOXACIN 76267995356 No Longer Active Griffin HERNANDEZ Active PREDNISONE 20 MG ORAL TABLET Take 3 tabs daily for 3 d ays, 2 tabs daily for 3 days, 1 tab daily for 3 days, 1/2 tab daily for 3 days 11/07 PREDNISONE 95834439955 No Longer Active Carlton Hu MD Acti ve AVELOX 400 MG ORAL TABLET 1 tab by mouth daily MOXIFLOXACIN HCL 93435694499 No Longer Active Carlton Hu MD Active CHERATUSSIN AC 100-10 MG/5ML ORAL SYRUP 1 tsp by mouth every 4 hours as needed for cough GUAIFENESIN-CODEINE 39841157922 No Longe r Active Hugo Restrepo MD Active AVELOX 400 MG ORAL TABLET 1 tab by mouth daily MOXIFLOXACIN HCL 04802834196 No Longer Active Marcy De La Rosa MD PhD Active TERBINAFINE HCL 250 MG ORAL TABLET 1 qDay T ERBINAFINE HCL 65575950792 No Longer Active Marcy De La Rosa MD PhD Active CHERATUSSIN AC 100-10 MG/5ML ORAL SYRUP 1 tsp by mouth every 4 hours as needed for cough GUAIFENESIN-CODEINE 22339383596 No Longe r Active Marcy De La Rosa MD PhD Active AVELOX 400 MG ORAL TABLET 1 tab by mouth daily MOXIFLOXACIN HCL 93702119729 No Longer Active Marcy De La Rosa MD PhD Active HYDROCODONE-ACETAMINOPHEN 5-325 MG ORAL TABLET 1 po q 6hr PRN co ugh HYDROCODONE-ACETAMINOPHEN 36493706086 No Longer Active Marcy De La Rosa MD PhD Active PREDNISONE 20 MG ORAL TABLET 2 tabs daily for 3 days, 1 tab daily for 3 days, 1/2 tab daily for 2 days PREDNISONE 20208912569 No Longer Active Carlton Hu MD Active CEFDINIR 300 MG ORAL CAPSULE by mouth twice a day 2011 CEFDINIR 39382124202 No Longer Active Carlton Hu MD Acti ve HYDROCHLOROTHIAZIDE 25 MG ORAL TABLET 1 TAB PO DAILY HYDROCHLOROTHIAZIDE 89704856250 Active Carlton Hu MD A ctive ACETAMINOPHEN-CODEINE #3 300-30 MG ORAL TABLET 1 tablet po q 4-6 hrs prn pain ACETAMINOPHEN-CODEINE 77857547373 No Longer Active Ridge Bess DO Active ZITHROMAX 250 MG ORAL TABLET 2 po today, then 1 po q days 2-5 20 03/07/07 AZITHROMYCIN 45630367661 No Longer Active Carlton Hu MD Active CHERATUSSIN AC 100-10 MG/5ML ORAL SYRUP take 1 tsp po q4-6 h ours prn cough GUAIFENESIN-CODEINE 01059673216 No Longer Active Jayden Hu MD Active ACETAMINOPHEN-CODEINE #3 300-30 MG ORAL TABLET 1 PO Q 4-6 HR PRN PAIN ACETAMINOPHEN-CODEINE 36836974683 No Longer Active Arnol Hu MD Active LORTAB 7.5-500 MG/15ML ORAL ELIXIR 7.5 ml po q 4 hour prn cough HYDROCODONE-ACETAMINOPHEN 22264589433 No Longer Active Carlton Hu MD Active PREDNISONE 20 MG ORAL TABLET 1 po bid 3 days, then 1 po q day 3 days PREDNISONE 49052287002 No Longer Active Carlton Hu MD Active CEFDINIR 300 MG ORAL CAPSULE by mouth twice a day 2011 CEFDINIR 51557854974 No Longer Active Carlton Hu MD Acti ve CEFDINIR 300 MG ORAL CAPSULE by mouth twice a day 2010 CEFDINIR 98089593061 No Longer Active Carlton Hu MD Acti ve CEFDINIR 300 MG ORAL CAPSULE by mouth twice a day 2010 CEFDINIR 37119114941 No Longer Active Carlton Hu MD Acti ve TESSALON PERLES 100 MG ORAL CAPSULE 1 tablet by mouth 3 times daily as needed for cough BENZONATATE 79885498923 No Longer Active Carlton Hu MD Active CEFDINIR 300 MG ORAL CAPSULE by mouth twice a day 2010 CEFDINIR 79714569246 No Longer Active Carlton Hu MD Acti ve ZITHROMAX Z-REYNA 250 MG ORAL TABLET 2 today, then 1 daily for 4 d ays AZITHROMYCIN 02607434803 No Longer Active Hugo Restrepo MD Active TESSALON PERLES 100 MG ORAL CAPSULE 1 tablet by mouth 3 times daily as needed for cough TESSALON PERLES 100 MG ORAL CAPSULE 80140 7 BENZONATATE Inactive PREDNISONE 20 MG ORAL TABLET 1 po bid 3 days, then 1 po q day 3 days PREDNISONE 20 MG ORAL TABLET 346244 PREDNISONE [place] ctive LORTAB 7.5-500 MG/15ML ORAL ELIXIR 7.5 ml po q 4 hour prn cough LORTAB 7.5-500 MG/15ML ORAL ELIXIR 6610428 HYDROCODONE-A CETAMINOPHEN Inactive ACETAMINOPHEN-CODEINE #3 300-30 MG ORAL TABLET 1 PO Q 4-6 HR PRN PAIN ACETAMINOPHEN-CODEINE #3 300-30 MG ORAL TABLET ACETAMINOPHEN-CODEINE Inactive CHERATUSSIN AC 100-10 MG/5ML ORAL SYRUP take 1 tsp po q4-6 h ours prn cough CHERATUSSIN AC 100-10 MG/5ML ORAL SYRUP 461160 GUAIFENESIN-CODEINE Inactive ACETAMINOPHEN-CODEINE #3 300-30 MG ORAL TABLET 1 tablet po q 4-6 hrs prn pain ACETAMINOPHEN-CODEINE #3 300-30 MG ORAL TABLET ACETAMINOPHEN-CODEINE Inactive HYDROCODONE-ACETAMINOPHEN 5-325 MG ORAL TABLET 1 po q 6hr PRN co ugh HYDROCODONE-ACETAMINOPHEN 5-325 MG ORAL TABLET 334106 HYDROCODONE-ACETAMINOPHEN Inactive AVELOX 400 MG ORAL TABLET 1 tab by mouth daily AVELOX 400 MG ORAL TABLET 461619 MOXIFLOXACIN HCL Inactive CHERATUSSIN AC 100-10 MG/5ML ORAL SYRUP 1 tsp by mouth every 4 hours as needed for cough CHERATUSSIN AC 100-10 MG/5ML ORAL SYRUP 9 05152 GUAIFENESIN-CODEINE Inactive TERBINAFINE HCL 250 MG ORAL TABLET 1 qDay 07/08 TERBINAFINE HCL 250 MG ORAL TABLET 584866 TERBINAFINE HCL Inactive CHERATUSSIN AC 100-10 MG/5ML ORAL SYRUP 1 tsp by mouth every 4 hours as needed for cough CHERATUSSIN AC 100-10 MG/5ML ORAL SYRUP 9 47648 GUAIFENESIN-CODEINE Inactive ACETAMINOPHEN-CODEINE #3 300-30 MG ORAL TABLET 1 PO Q 4-6 HRS IA N PAIN ACETAMINOPHEN-CODEINE #3 300-30 MG ORAL TABLET ACETAMINOPHEN-CODEINE Inactive CHERATUSSIN AC 100-10 MG/5ML ORAL SYRUP 1 tsp by mouth every 4 hours as needed for cough CHERATUSSIN AC 100-10 MG/5ML ORAL SYRUP 9 12116 GUAIFENESIN-CODEINE Inactive AUGMENTIN 875-125 MG ORAL TABLET 1 tab by mouth twice daily with food AUGMENTIN 875-125 MG ORAL TABLET 802033 AMOXICIL MADELINE-POT CLAVULANATE Inactive CHERATUSSIN AC 100-10 MG/5ML ORAL SYRUP take one tsp po Q 6h ours prn cough CHERATUSSIN AC 100-10 MG/5ML ORAL SYRUP 013569 GUAIFENESIN-CODEINE Inactive PROPRANOLOL HCL 60 MG ORAL TABLET 1 PO Q D PROPRANOLOL HCL 60 MG ORAL TABLET 559551 PROPRANOLOL HCL Inactive TOPAMAX 50 MG ORAL TABLET take 1 tab po BID for migraines. 07/02 TOPAMAX 50 MG ORAL TABLET 636469 TOPIRAMATE Inacti ve TOPAMAX 25 MG ORAL TABLET 1 qHS x 1 week, then 1 BID x 1 week, then 1 qAM and 2 qHS x 1 week, then 2 BID (migraine prevention) TOPAMAX 25 MG ORAL TABLET 074041 TOPIRAMATE Inactive LYRICA 75 MG ORAL CAPSULE TAKE 1 CAPSULE BY MOUTH TWICE DAILY LYRICA 75 MG ORAL CAPSULE PREGABALIN Inactive SYMBICORT 160-4.5 MCG/ACT INHALATION AEROSOL 2 puffs bid wit h rinse after SYMBICORT 160-4.5 MCG/ACT INHALATION AEROSOL BUDESONIDE- FORMOTEROL FUMARATE Inactive PROMETHAZINE-CODEINE 6.25-10 MG/5ML ORAL SYRUP 1 tsp b y mouth every 8 hours prn cough PROMETHAZINE-CODEINE 6.25-10 MG/ 5ML ORAL SYRUP 668160 PROMETHAZINE-CODEINE Inactive CYMBALTA 30 MG ORAL CAPSULE DELAYED RELEASE PARTICLES 1 cap by mouth daily CYMBALTA 30 MG ORAL CAPSULE DELAYED RELE ASE PARTICLES 839393 DULOXETINE HCL Inactive PREMARIN 0.625 MG ORAL TABLET TAKE 1 TAB BY MOUTH DAILY PREMARIN 0.625 MG ORAL TABLET ESTROGENS CONJUGATED Inactive CHERATUSSIN AC 100-10 MG/5ML ORAL SYRUP 1 tsp by mouth every 4 hours as needed for cough CHERATUSSIN AC 100-10 MG/5ML ORAL SYRUP 9 83927 GUAIFENESIN-CODEINE Inactive PROMETHAZINE-CODEINE 6.25-10 MG/5ML ORAL SYRUP 1 tsp b y mouth every 6 hours if needed for cough PROMETHAZINE-CODEINE 6.25-10 MG/5ML ORAL SYRUP 358002 PROMETHAZINE-CODEINE Inactive CHERATUSSIN AC 100-10 MG/5ML ORAL SYRUP 1 tsp by mouth every 4 hours as needed for cough CHERATUSSIN AC 100-10 MG/5ML ORAL SYRUP 9 53721 GUAIFENESIN-CODEINE Inactive FLUTICASONE PROPIONATE 50 MCG/ACT NASAL SUSPENSION 1 t o 2 sprays each nostril daily FLUTICASONE PROPIONATE 50 MCG/AC T NASAL SUSPENSION 8445676 FLUTICASONE PROPIONATE Inactive PREDNISONE 20 MG ORAL TABLET 3 tab PO qd x 2d, 2 tab P O qd x 2d, 1 tab PO qd x 2d, 1/2 tab PO qd x 2d PREDNISONE 20 MG ORAL TAB LET 539786 PREDNISONE Inactive LEVOFLOXACIN 500 MG ORAL TABLET 1 tab PO daily x 10 days LEVOFLOXACIN 500 MG ORAL TABLET 822904 LEVOFLOXACIN Inactive CYCLOBENZAPRINE HCL 10 MG ORAL TABLET 1 tablet by mouth BID prn had pain CYCLOBENZAPRINE HCL 10 MG ORAL TABLET 178701 CYCLOBENZAPRINE HCL Inactive ZOCOR 40 MG ORAL TABLET 1 tab by mouth daily 4 ZOCOR 40 MG ORAL TABLET 088492 SIMVASTATIN Inactive TUSSIONEX PENNKINETIC ER 10-8 MG/5ML [...] FLUTICASONE PROPIO EFE 50 MCG/ACT NASAL SUSPENSION 7767631 FLUTICASONE PROPIONATE Inactive TUSSIONEX PENNKINETIC ER 10-8 [...] ays ZITHROMAX Z-REYNA 250 MG ORAL TABLET 548596 AZITHROMYCIN Inactive CEFDINIR 300 MG ORAL CAPSULE by mouth twice a day 2010 CEFDINIR 300 MG ORAL CAPSULE 144649 CEFDINIR Inactive CEFDINIR 300 MG ORAL CAPSULE by mouth twice a day 2010 CEFDINIR 300 MG ORAL CAPSULE 544938 CEFDINIR Inactive CEFDINIR 300 MG ORAL CAPSULE by mouth twice a day 2010 CEFDINIR 300 MG ORAL CAPSULE 105155 CEFDINIR Inactive CEFDINIR 300 MG ORAL CAPSULE by mouth twice a day 2011 CEFDINIR 300 MG ORAL CAPSULE 105006 CEFDINIR Inactive ZITHROMAX 250 MG ORAL TABLET 2 po today, then 1 po q days 2-5 20 03/07/07 ZITHROMAX 250 MG ORAL TABLET 678797 AZITHROMYCIN [place] ctive CEFDINIR 300 MG ORAL CAPSULE by mouth twice a day 2011 CEFDINIR 300 MG ORAL CAPSULE 838368 CEFDINIR Inactive PREDNISONE 20 MG ORAL TABLET 2 tabs daily for 3 days, 1 tab daily for 3 days, 1/2 tab daily for 2 days PREDNISONE 20 MG ORAL T ABLET 610949 PREDNISONE Inactive AVELOX 400 MG ORAL TABLET 1 tab by mouth daily AVELOX 400 MG ORAL TABLET 029851 MOXIFLOXACIN HCL Inactive AVELOX 400 MG ORAL TABLET 1 tab by mouth daily AVELOX 400 MG ORAL TABLET 602548 MOXIFLOXACIN HCL Inactive PREDNISONE 20 MG ORAL TABLET Take 3 tabs daily for 3 d ays, 2 tabs daily for 3 days, 1 tab daily for 3 days, 1/2 tab daily for 3 days 11/07 PREDNISONE 20 MG ORAL TABLET 943451 PREDNISONE Inactive LEVAQUIN 500 MG ORAL TABLET take one po QD LEVAQUIN 500 MG ORAL TABLET 549092 LEVOFLOXACIN Inactive AZITHROMYCIN 250 MG ORAL TABLET 2 po qd x 1 day, then 1 po q d x 4 days AZITHROMYCIN 250 MG ORAL TABLET 793156 AZITHROMY GIOVANNI Inactive MEDROL 4 MG ORAL TABLET THERAPY PACK 6 tabs on day 1, 5 tabs on day 2, 4 tabs on day 3, 3 tabs on day 4, 2 tabs on day 5, 1 tab on day 6 2013 MEDROL 4 MG ORAL TABLET THERAPY PACK 044159 METHYLPREDNISOLONE [place] ctive CHERATUSSIN AC 100-10 MG/5ML ORAL SYRUP 5ml po q6hr PRN Cough 20 13/04/14 CHERATUSSIN AC 100-10 MG/5ML ORAL SYRUP 138125 GUAIFENE SIN-CODEINE Inactive TRIAMCINOLONE ACETONIDE 0.1 % EXTERNAL CREAM apply three roger es daily prn rash TRIAMCINOLONE ACETONIDE 0.1 % EXTERNAL CREAM 101 4314 TRIAMCINOLONE ACETONIDE Inactive AZITHROMYCIN 250 MG ORAL TABLET 2 po qd x 1 day, then 1 po q d x 4 days AZITHROMYCIN 250 MG ORAL TABLET 694145 AZITHROMY GIOVANNI Inactive MEDROL 4 MG ORAL TABLET THERAPY PACK 6 pills x 1 day, then 5 pills x 1 day then 4 pills x 1 day, then 3 pills x 1 day, then 2 pills x 1 day, then 1 pill x 1 day, then stop MEDROL 4 MG ORAL TABLET THERAPY PACK 239645 METHYLPREDNISOLONE Inactive AMOXICILLIN 500 MG ORAL CAPSULE 1 tab by mouth 3 times daily x 10 days AMOXICILLIN 500 MG ORAL CAPSULE 800742 AMOXICILL IN Inactive AMOXICILLIN 500 MG ORAL CAPSULE 1 tab by mouth 3 times daily x 10 days AMOXICILLIN 500 MG ORAL CAPSULE 686126 AMOXICILL IN Inactive ZITHROMAX 250 MG ORAL TABLET 2 po today, then 1 po q days 2-5 20 12/08/14 ZITHROMAX 250 MG ORAL TABLET 766992 AZITHROMYCIN [place] ctive AUGMENTIN 875-125 MG ORAL TABLET 1 po BID x 10 days 20 13/01/20 AUGMENTIN 875-125 MG ORAL TABLET 920069 AMOXICILLIN-POT CLAVULANATE Inactive ZITHROMAX Z-REYNA 250 MG ORAL TABLET 2 today, then 1 daily for 4 d ays ZITHROMAX Z-REYNA 250 MG ORAL TABLET 786853 AZITHROMYCIN Inactive ZITHROMAX 250 MG ORAL TABLET 2 po today, then 1 po q days 2-5 20 14/03/21 ZITHROMAX 250 MG ORAL TABLET 177392 AZITHROMYCIN [place] ctive ZITHROMAX Z-REYNA 250 MG ORAL TABLET 2 today, then 1 daily for 4 d ays ZITHROMAX Z-REYNA 250 MG ORAL TABLET 139097 AZITHROMYCIN Inactive CEFDINIR 300 MG ORAL CAPSULE 1 po BID x 10 days 06/21 CEFDINIR 300 MG ORAL CAPSULE 555212 CEFDINIR Inactive ZITHROMAX 250 MG ORAL TABLET 2 po today, then 1 po q days 2-5 20 13/08/10 ZITHROMAX 250 MG ORAL TABLET 355272 AZITHROMYCIN [place] ctive LEVAQUIN 500 MG ORAL TABLET 1 tablet by mouth daily 13/09/24 LEVAQUIN 500 MG ORAL TABLET 19971102 LEVOFLOXACIN Inactive SINGULAIR 10 MG ORAL TABLET 1 po qday for allergies 20 14/01/12 SINGULAIR 10 MG ORAL TABLET 20010504 MONTELUKAST SODIUM Inactive AMOXICILLIN 500 MG ORAL CAPSULE 2 po BID x 10 days 201 09/29/08 AMOXICILLIN 500 MG ORAL CAPSULE 447417 AMOXICILLIN Inactive PREDNISONE 20 MG ORAL TABLET 2 tabs daily for 3 days, 1 tab daily for 3 days, 1/2 tab daily for 2 days PREDNISONE 20 MG ORAL T ABLET 168495 PREDNISONE Inactive ZITHROMAX Z-REYNA 250 MG ORAL TABLET 2 today, then 1 daily for 4 d ays ZITHROMAX Z-REYNA 250 MG ORAL TABLET 986538 AZITHROMYCIN Inactive PREDNISONE 20 MG ORAL TABLET 2 tabs daily for 3 days, 1 tab daily for 3 days, 1/2 tab daily for 2 days PREDNISONE 20 MG ORAL T ABLET 289213 PREDNISONE Inactive ZITHROMAX 250 MG ORAL TABLET 2 po today, then 1 po q days 2-5 14/09/04 ZITHROMAX 250 MG ORAL TABLET 526225 AZITHROMYCIN [place] ctive AMOXICILLIN 500 MG ORAL CAPSULE 1 cap by mouth three times a day AMOXICILLIN 500 MG ORAL CAPSULE 415224 AMOXICILLIN Inactive TERBINAFINE HCL 250 MG ORAL TABLET 1 qDay for nail fungus 7 TERBINAFINE HCL 250 MG ORAL TABLET 126766 TERBINAFINE HCL Inact nael Vital Signs Date [...] - Chem istry sodium, serum 132 mmol/L 504-219 3693/07/12 potassium, serum 2.7 mmol/L 3.5-5.2 chloride, serum 93 mmol/L 98-107 carbon dioxide, venous blood 30.8 mmol/L 21.0-32 .0 blood glucose 107 mg/dL 65-110 calcium, serum 9.3 mg/dL 8.5-10.1 urea nitrogen, blood 12 mg/dL 7-18 creatinine, serum 1.00 mg/dL 0.60-1.30 sodium, serum 142 mmol/L [phone]/07/17 potassium, serum 4.2 mmol/L 3.5-5.2 chloride, serum 106 mmol/L 98-107 carbon dioxide, venous blood 29.9 mmol/L 21.0-32 .0 blood glucose 108 mg/dL 65-110 calcium, serum 9.1 mg/dL 8.5-10.1 urea nitrogen, blood 11 mg/dL 7-18 creatinine, serum 0.81 mg/dL 0.60-1.30 Lab Report: Rapid Strep - Lab Microbial identification kit, rapid strep method Negative Negative Encounters Code Encounter Date Provider Facility CPT-07070 Level 3 Est. Patient 13:35:41 SALES PRODUCT MANAGER Carlton rich MD [facility] CPT-78105 Level 3 Est. Patient 10:03:52 SALES PRODUCT MANAGER Carlton rich MD [facility] CPT-08151 Level 3 Est. Patient 12:17:50 CDT Hugo Restrepo MD [facility] CPT-59856 Level 3 Est. Patient 13:42:38 CDT Italo [facility] CPT-77304 Level 3 Est. Patient 13:23:51 CDT Diya cobian [facility] CPT-22201 Level 3 Est. Patient 14:22:19 SALES PRODUCT MANAGER Diya cobian [facility] CPT-32056 Level 3 Est. Patient 10:11:46 CDT Carlton rich MD [facility] CPT-90659 Level 3 Est. Patient 17:29:43 CDT Italo RETAIL DEPARTMENT RESET [facility] CPT-12209 Level 3 Est. Patient 11:58:06 CDT Italo [facility] CPT-31570 Level 4 Est. Patient 14:36:51 CDT Carlton rich MD [facility] CPT-05493 Level 3 Est. Patient 18:16:00 SALES PRODUCT MANAGER Blaine W Cloven [facility] CPT-58982 Level 3 Est. Patient 09:45:49 SALES PRODUCT MANAGER Carlton rich MD [facility] CPT-84744 Level 3 Est. Patient 13:19:20 CDT Carlton rich MD [facility]-40198 Level 3 Est. Patient 13:06:43 CDT Ridge tam DO [facility] CPT-79100 Level 3 Est. Patient 10:03:07 CDT Perez Mora MD [facility] CPT-45161 Level 3 Est. Patient 19:50:35 SALES PRODUCT MANAGER Carlton rich MD [facility]-48040 Level 4 Est. Patient 18:05:01 SALES PRODUCT MANAGER Carlton rich MD [facility]-42272 Level 3 Est. Patient 10:45:55 SALES PRODUCT MANAGER Hugo Restrepo MD [facility] CPT-38249 Level 3 Est. Patient 14:12:49 CDT Griffin lincoln [facility] CPT-15315 Level 3 Est. Patient 17:37:24 CDT Carlton rich MD [facility]-67788 Level 3 Est. Patient 16:51:54 CDT Carlton rich MD [facility] CPT-04276 Level 3 Est. Patient 12:18:11 CDT Hugo Restrepo MD [facility] CPT-72056 Level 3 Est. Patient 11:30:25 CDT Marcy crisostomo MD PhD [facility]-49910 Level 3 Est. Patient 12:00:47 SALES PRODUCT MANAGER Carlton rich MD [facility]-96372 Level 3 Est. Patient 16:31:06 SALES PRODUCT MANAGER Carlton rich MD [facility]-08412 Level 3 Est. Patient 16:23:24 SALES PRODUCT MANAGER Ridge tam [facility] CPT-54349 Level 3 Est. Patient 12:34:12 CDT Carlton rich MD [facility] CPT-94361 Level 2 Est. Patient 15:43:33 CDT Robi armstrong MD [facility] CPT-84967 Level 4 Est. Patient 14:04:44 CDT Carlton rich MD [facility] CPT-27443 Level 3 Est. Patient 05:47:59 CDT Ridge tam [facility] CPT-30526 Level 3 Est. Patient 13:12:53 SALES PRODUCT MANAGER Carlton rich MD [facility] CPT-21611 Level 3 Est. Patient 14:26:53 CDT Hugo Restrepo MD [facility] Procedures Code Procedure Name Date Entry Date Standard Desc ription CPT-J1040 Depo Medrol 80 mg (Methyl Prednisolone A cetate) 10:42:44 CDT CPT-J1100 Decadron 8mg (Dexamethasone) 10:42:44 CDT 2 CPT-J0696 Rocephin 1gm Inj Solr 14:32:13 CDT CPT-J1020 Depo Medrol 60 mg (Methyl Prednisolone A cetate) 14:32:13 CDT CPT-J1100 Decadron 6mg (Dexamethasone) 14:32:13 CDT 2 CPT-01161 Hip bilat min 2V w AP pelvis 13:16:20 CDT 2 CPT-24360 Pelvis only 13:07:33 CDT CPT-39919 Spec Collection and Handling Fee 11:25:12 C DT CPT-50839 Fluzone Quadrivalent Intramuscular Suspe nsion 0.5 ML 14:31:55 CDT CPT-50959 Abx/Therapy Injection 13:28:47 SALES PRODUCT MANAGER CPT-J2930 Solu Medrol 125 mg (Methyl Prednisolone Sodium Succinate) 12:00:47 SALES PRODUCT MANAGER CPT-96451 Venipuncture Draw Fee 11:33:31 CDT CPT-89531 EKG Trac and Interp 11:21:09 CDT CPT-09369 Chest 2V Frontal and Lat 11:21:09 CDT 12/15 CPT-27126 Venipuncture Draw Fee 08:02:34 CDT CPT-59670 Chest 2V Frontal and Lat 05:47:59 CDT 06/05
--- OUTSIDE RECORDS SUMMARY | 2019-10-08 08:15 | XMS REPORT | Clinical Summary ---
Author Author Caitlin, Juliana Martinez Organization [employer] [facility] Address Unknown Phone Unavailable Allergies, Adverse [...] bronchitis URI - acute 465.9 Resolved Hugo Resrtepo MD Acute upper respiratory infections of unspecified [...] - acute ICD-465.9 Inactive Hugo Restrepo MD Rhinitis, acute ICD-460 Inactive Hugo Ochoa MD Sinusitis ICD-473.9 Inactive Hugo Restrepo MD Bronchitis ICD-490 Inactive Hugo Restrepo MD 201 10/02/29 Pharyngitis acute ICD-462 Inactive Hugo gore MD Medication List Medication Instructions Start Date Stop Date Generic Name NDC Status Provider Patient Instruction PREDNISONE 20 MG ORAL TABLET 2 po qd x 5 days P REDNISONE [id number] No Longer Active Perez Mora MD Active PROAIR HFA 108 (90 BASE) MCG/ACT INHALATION AEROSOL SO LUTION 2 puffs four times a day as needed ALBUTEROL SULFATE 58439975789 No Long er Active Becky FUENTES Active ASPIRIN 81 MG ORAL TABLET 1 po qd ASPIRIN 57005471909 Active Carlton Hu MD Active PREDNISONE 20 MG ORAL TABLET 1 tab twice daily for 3 d ay, then one daily for three days PREDNISONE 75896728370 No Longer Active Carlton Hu MD Active AUGMENTIN 875-125 MG ORAL TABLET 1 po BID x 10 days 16/03/22 AMOXICILLIN-POT CLAVULANATE 38419582836 No Longer Active Elise Garcia APRN Active TERBINAFINE HCL 250 MG ORAL TABLET 1 qDay for nail fungus 7 TERBINAFINE HCL 93531706665 No Longer Active Carlton Hu MD A ctive TUSSIONEX PENNKINETIC ER 10-8 MG/5ML ORAL SUSPENSION E XTENDED RELEASE 5ml po q12hr PRN Cough HYDROCOD POLST-CHLORPHEN POLST 25941941309 Active Perez Mora MD Active AMOXICILLIN 500 MG ORAL CAPSULE 1 cap by mouth three times a day AMOXICILLIN 92261109939 No Longer Active Carlton Hu MD Active ELMIRON 100 MG ORAL CAPSULE 2 tablets in the am and 1 tablet at hs PENTOSAN POLYSULFATE SODIUM 02453287482 No Longer Active Robert Hu MD Active MUCINEX D 60-600 MG ORAL TABLET EXTENDED RELEASE 12 HOUR 1 t ab po q am PSEUDOEPHEDRINE-GUAIFENESIN 43818298471 No Longer Act nael Carlton Hu MD Active MUCINEX DM MAXIMUM STRENGTH 60-1200 MG ORAL TABLET EXT ENDED RELEASE 12 HOUR 1 tab po q am DEXTROMETHORPHAN-GUAIFENESIN 28560405570 No Longer Active Carlton Hu MD Active TUSSIONEX PENNKINETIC ER 10-8 MG/5ML ORAL SUSPENSION E XTENDED RELEASE 5ml po q12hr PRN Cough HYDROCOD POLST-CHLORPHEN POLST 5 6788718478 No Longer Active Carlton Hu MD Active POTASSIUM CHLORIDE ER 20 MEQ ORAL TABLET EXTENDED RELE ASE Take 1 by mouth 4 times daily for 7 days POTASSIUM CHLORIDE 51680301761 No Longer Active Carlton Hu MD Active ZITHROMAX 250 MG ORAL TABLET 2 po today, then 1 po q days 2-5 20 14/09/04 AZITHROMYCIN 75058918872 No Longer Active Elise Garcia APRN Active TUSSIONEX PENNKINETIC ER 10-8 MG/5ML ORAL SUSPENSION E XTENDED RELEASE 5 ml twice a day as needed for cough HYDROCOD POLST-CHLORPH EN POLST 78372091767 No Longer Active Elise Garcia APRN Active MONTELUKAST SODIUM 10 MG ORAL TABLET 1 po daily for Allergy MONTELUKAST SODIUM 25304851788 Active Carlton Hu MD Ac tive TUSSIONEX PENNKINETIC ER 10-8 MG/5ML ORAL SUSPENSION E XTENDED RELEASE 5ml po q12hr PRN Cough HYDROCOD POLST-CHLORPHEN POLST 5 9599127388 No Longer Active Hugo Restrepo MD Active GABAPENTIN 100 MG ORAL CAPSULE 1 po BID for fibromyalgia GABAPENTIN 59421302546 Active Carlton Hu MD Active LYRICA 100 MG ORAL CAPSULE Take 1 tab po BID for fibromyalgia 20 11/08/21 PREGABALIN 81287139478 No Longer Active Elise Garcia APRN A ctive PREDNISONE 20 MG ORAL TABLET 2 tabs daily for 3 days, 1 tab daily for 3 days, 1/2 tab daily for 2 days PREDNISONE 69812590019 No Longer Active Diya De Guzman APRN Active TUSSIONEX PENNKINETIC ER 10-8 MG/5ML ORAL SUSPENSION E XTENDED RELEASE 5 mL PO q 12 hrs PRN cough HYDROCOD POLST-CHLORPHEN POLST 599600 50315 No Longer Active Jillina Gege RICEN Active FLUTICASONE PROPIONATE 50 MCG/ACT NASAL SUSPENSION 2 s prays each nostril daily until bottle is empty FLUTICASONE PROPIONATE 011152026 99 No Longer Active Diya De Guzman APRN Active ASMANEX 60 METERED DOSES 220 MCG/INH INHALATION AEROSO L POWDER BREATH ACTIVATED 1 puff bid with rinse after MOMETASONE FUROATE 7910592 4102 No Longer Active Diya De Guzman SPRAGGER Active ZITHROMAX Z-REYNA 250 MG ORAL TABLET 2 today, then 1 daily for 4 d ays AZITHROMYCIN 34152451318 No Longer Active Elise Garcia APRN Active TUSSIONEX PENNKINETIC ER 10-8 MG/5ML ORAL SUSPENSION E XTENDED RELEASE 5ml po q12hr PRN Cough HYDROCOD POLST-CHLORPHEN POLST 5 1842670194 No Longer Active Elise Garcia APRN Active PREDNISONE 20 MG ORAL TABLET 2 tabs daily for 3 days, 1 tab daily for 3 days, 1/2 tab daily for 2 days PREDNISONE 20477940990 No Longer Active Diya De Guzman APRN Active AMOXICILLIN 500 MG ORAL CAPSULE 2 po BID x 10 days 201 09/29/08 AMOXICILLIN 08348683596 No Longer Active Diya De Guzman APRN Act nael SINGULAIR 10 MG ORAL TABLET 1 po qday for allergies 20 14/01/12 MONTELUKAST SODIUM 91954207961 No Longer Active Carlton Hu MD Active LEVAQUIN 500 MG ORAL TABLET 1 tablet by mouth daily 20 13/09/24 LEVOFLOXACIN 01382529926 No Longer Active Carlton Hu MD Acti ve FLUTICASONE PROPIONATE 50 MCG/ACT NASAL SUSPENSION 2 s prays each nostril daily for 2 weeks, then 1 spray each nostril daily. FLUTICASONE PROPIONATE 78364917260 Active Elise Garcia APRN Active ZITHROMAX 250 MG ORAL TABLET 2 po today, then 1 po q days 2-5 20 13/08/10 AZITHROMYCIN 41977158902 No Longer Active Elise Garcia APRN Active XANAX 0.5 MG ORAL TABLET one tablet by mouth daily prn anxiety 2015 ALPRAZOLAM 51630741682 Active Carlton Hu MD Active CYMBALTA 30 MG ORAL CAPSULE DELAYED RELEASE PARTICLES 1 cap by mouth daily for depression DULOXETINE HCL 90661786563 Active Carlton beltrán MD Active CEFDINIR 300 MG ORAL CAPSULE 1 po BID x 10 days CEFDINIR 50888877117 No Longer Active Carlton Hu MD Active ZOCOR 40 MG ORAL TABLET 1 tab by mouth daily SI MVASTATIN 14128441218 No Longer Active Carlton Hu MD Active CYCLOBENZAPRINE HCL 10 MG ORAL TABLET 1 tablet by mouth BID prn had pain CYCLOBENZAPRINE HCL 89924392058 No Longer Active Jayden Hu MD Active LEVOFLOXACIN 500 MG ORAL TABLET 1 tab PO daily x 10 days LEVOFLOXACIN 65605136750 No Longer Active Carlton Hu MD Acti ve PREDNISONE 20 MG ORAL TABLET 3 tab PO qd x 2d, 2 tab P O qd x 2d, 1 tab PO qd x 2d, 1/2 tab PO qd x 2d PREDNISONE 46106529760 No Lo nger Active aCrlton Hu MD Active FLUTICASONE PROPIONATE 50 MCG/ACT NASAL SUSPENSION 1 t o 2 sprays each nostril daily FLUTICASONE PROPIONATE 43001891081 No Longer Ac tive Blaine HERNANDEZ Active CHERATUSSIN AC 100-10 MG/5ML ORAL SYRUP 1 tsp by mouth every 4 hours as needed for cough GUAIFENESIN-CODEINE 12652456111 No Longe r Active Blaine HERNANDEZ Active PROMETHAZINE-CODEINE 6.25-10 MG/5ML ORAL SYRUP 1 tsp b y mouth every 6 hours if needed for cough PROMETHAZINE-CODEINE 52859884154 No Longer Active Blaine HERNANDEZ Active CHERATUSSIN AC 100-10 MG/5ML ORAL SYRUP 1 tsp by mouth every 4 hours as needed for cough GUAIFENESIN-CODEINE 23162673055 No Longe r Active Blaine HERNANDEZ Active ZITHROMAX Z-REYNA 250 MG ORAL TABLET 2 today, then 1 daily for 4 d ays AZITHROMYCIN 99691282565 No Longer Active Columba Raida Act nael ZITHROMAX 250 MG ORAL TABLET 2 po today, then 1 po q days 2-5 20 14/03/21 AZITHROMYCIN 20347580365 No Longer Active Carlton Hu MD Active ZITHROMAX Z-REYNA 250 MG ORAL TABLET 2 today, then 1 daily for 4 d ays AZITHROMYCIN 00861039754 No Longer Active Columba Raida Act nael AUGMENTIN 875-125 MG ORAL TABLET 1 po BID x 10 days 13/01/20 AMOXICILLIN-POT CLAVULANATE 32341556734 No Longer Active Diya De Guzman APRN Active ZITHROMAX 250 MG ORAL TABLET 2 po today, then 1 po q days 2-5 20 12/08/14 AZITHROMYCIN 83876717578 No Longer Active Carlton Hu MD Active TRAMADOL HCL 50 MG ORAL TABLET 1 po tid with ES Tylenol TRAMADOL HCL 82214682868 Active Carlton Hu MD Active PREMARIN 0.625 MG ORAL TABLET TAKE 1 TAB BY MOUTH DAILY ESTROGENS CONJUGATED 72620708138 No Longer Active Ridge Bess DO A ctive CYMBALTA 30 MG ORAL CAPSULE DELAYED RELEASE PARTICLES 1 cap by mouth daily DULOXETINE HCL 35715427966 No Longer Active Ridge tam DO Active AMOXICILLIN 500 MG ORAL CAPSULE 1 tab by mouth 3 times daily x 10 days AMOXICILLIN 95923865823 No Longer Active Carlton bustamante MD Active AMOXICILLIN 500 MG ORAL CAPSULE 1 tab by mouth 3 times daily x 10 days AMOXICILLIN 97545851174 No Longer Active Carlton bustamante MD Active PROMETHAZINE-CODEINE 6.25-10 MG/5ML ORAL SYRUP 1 tsp b y mouth every 8 hours prn cough PROMETHAZINE-CODEINE 66389241121 No Longer Acti ve Carlton Hu MD Active MEDROL 4 MG ORAL TABLET THERAPY PACK 6 pills x 1 day, then 5 pills x 1 day then 4 pills x 1 day, then 3 pills x 1 day, then 2 pills x 1 day, then 1 pill x 1 day, then stop METHYLPREDNISOLONE 29685698633 No Long er Active Perez Mora MD Active AZITHROMYCIN 250 MG ORAL TABLET 2 po qd x 1 day, then 1 po q d x 4 days AZITHROMYCIN 62388741747 No Longer Active Perez Ambriz MD Active SYMBICORT 160-4.5 MCG/ACT INHALATION AEROSOL 2 puffs bid wit h rinse after BUDESONIDE-FORMOTEROL FUMARATE 05822926810 N o Longer Active Perez Mora MD Active LYRICA 75 MG ORAL CAPSULE TAKE 1 CAPSULE BY MOUTH TWICE DAILY PREGABALIN 65282183362 No Longer Active Carlton Hu MD Acti ve TOPAMAX 25 MG ORAL TABLET 1 qHS x 1 week, then 1 BID x 1 week, then 1 qAM and 2 qHS x 1 week, then 2 BID (migraine prevention) T OPIRAMATE 60439270734 No Longer Active Jerica FUENTES Active TOPAMAX 50 MG ORAL TABLET take 1 tab po BID for migraines. 07/02 TOPIRAMATE 93683374938 No Longer Active Jerica FUENTES Active TOPAMAX 100 MG ORAL TABLET Take 1 tablet po bid TO PIRAMATE 20649033543 Active Carlton Hu MD Active TRIAMCINOLONE ACETONIDE 0.1 % EXTERNAL CREAM apply three roger es daily prn rash TRIAMCINOLONE ACETONIDE 15482705766 No Longer Active Carlton Hu MD Active PAXIL 40 MG ORAL TABLET take 1 tab po qday for depression 0 PAROXETINE HCL 97290659862 Active Carlton Hu MD Active CHERATUSSIN AC 100-10 MG/5ML ORAL SYRUP 5ml po q6hr PRN Cough 20 13/04/14 GUAIFENESIN-CODEINE 06670242055 No Longer Active Carlton Hu MD Active MEDROL 4 MG ORAL TABLET THERAPY PACK 6 tabs on day 1, 5 tabs on day 2, 4 tabs on day 3, 3 tabs on day 4, 2 tabs on day 5, 1 tab on day 6 2013 METHYLPREDNISOLONE 58728404998 No Longer Active Perez Mora MD Active AZITHROMYCIN 250 MG ORAL TABLET 2 po qd x 1 day, then 1 po q d x 4 days AZITHROMYCIN 30455707265 No Longer Active Perez Ambriz MD Active PROPRANOLOL HCL 60 MG ORAL TABLET 1 PO Q D PROPRANOLOL HCL 04168502614 No Longer Active Perez Mora MD Activ e CHERATUSSIN AC 100-10 MG/5ML ORAL SYRUP take one tsp po Q 6h ours prn cough GUAIFENESIN-CODEINE 30553564947 No Longer Active Zia Mora MD Active AUGMENTIN 875-125 MG ORAL TABLET 1 tab by mouth twice daily with food AMOXICILLIN-POT CLAVULANATE 59242006491 No Longer Act nael Perez Mora MD Active CHERATUSSIN AC 100-10 MG/5ML ORAL SYRUP 1 tsp by mouth every 4 hours as needed for cough GUAIFENESIN-CODEINE 95976094166 No Longe r Active Hugo Restrepo MD Active ACETAMINOPHEN-CODEINE #3 300-30 MG ORAL TABLET 1 PO Q 4-6 HRS [facility] N PAIN ACETAMINOPHEN-CODEINE 21983635199 No Longer Active Hugo Restrepo MD Active LEVAQUIN 500 MG ORAL TABLET take one po QD LEVO FLOXACIN 76200927697 No Longer Active Griffin HERNANDEZ Active PREDNISONE 20 MG ORAL TABLET Take 3 tabs daily for 3 d ays, 2 tabs daily for 3 days, 1 tab daily for 3 days, 1/2 tab daily for 3 days 11/07 PREDNISONE 22237275131 No Longer Active Carlton Hu MD Acti ve AVELOX 400 MG ORAL TABLET 1 tab by mouth daily MOXIFLOXACIN HCL 28171350619 No Longer Active Carlton Hu MD Active CHERATUSSIN AC 100-10 MG/5ML ORAL SYRUP 1 tsp by mouth every 4 hours as needed for cough GUAIFENESIN-CODEINE 50995542801 No Longe r Active Hugo Restrepo MD Active AVELOX 400 MG ORAL TABLET 1 tab by mouth daily MOXIFLOXACIN HCL 25742842986 No Longer Active Marcy De La Rosa MD PhD Active TERBINAFINE HCL 250 MG ORAL TABLET 1 qDay T ERBINAFINE HCL 34443880534 No Longer Active Marcy De La Rosa MD PhD Active CHERATUSSIN AC 100-10 MG/5ML ORAL SYRUP 1 tsp by mouth every 4 hours as needed for cough GUAIFENESIN-CODEINE 32647667260 No Longe r Active Marcy De La Rosa MD PhD Active AVELOX 400 MG ORAL TABLET 1 tab by mouth daily MOXIFLOXACIN HCL 38389875288 No Longer Active Marcy De La Rosa MD PhD Active HYDROCODONE-ACETAMINOPHEN 5-325 MG ORAL TABLET 1 po q 6hr PRN co ugh HYDROCODONE-ACETAMINOPHEN 20491210732 No Longer Active Marcy De La Rosa MD PhD Active PREDNISONE 20 MG ORAL TABLET 2 tabs daily for 3 days, 1 tab daily for 3 days, 1/2 tab daily for 2 days PREDNISONE 59765255932 No Longer Active Carlton Hu MD Active CEFDINIR 300 MG ORAL CAPSULE by mouth twice a day 2011 CEFDINIR 31577303725 No Longer Active Carlton Hu MD Acti ve HYDROCHLOROTHIAZIDE 25 MG ORAL TABLET 1 TAB PO DAILY HYDROCHLOROTHIAZIDE 50787019041 Active Carlton Hu MD A ctive ACETAMINOPHEN-CODEINE #3 300-30 MG ORAL TABLET 1 tablet po q 4-6 hrs prn pain ACETAMINOPHEN-CODEINE 85605115681 No Longer Active Ridge Bess DO Active ZITHROMAX 250 MG ORAL TABLET 2 po today, then 1 po q days 2-5 20 03/07/07 AZITHROMYCIN 89166230437 No Longer Active Carlton Hu MD Active CHERATUSSIN AC 100-10 MG/5ML ORAL SYRUP take 1 tsp po q4-6 h ours prn cough GUAIFENESIN-CODEINE 85283606701 No Longer Active Jayden Hu MD Active ACETAMINOPHEN-CODEINE #3 300-30 MG ORAL TABLET 1 PO Q 4-6 HR PRN PAIN ACETAMINOPHEN-CODEINE 45369315252 No Longer Active Arnol Hu MD Active LORTAB 7.5-500 MG/15ML ORAL ELIXIR 7.5 ml po q 4 hour prn cough HYDROCODONE-ACETAMINOPHEN 16981598569 No Longer Active Carlton Hu MD Active PREDNISONE 20 MG ORAL TABLET 1 po bid 3 days, then 1 po q day 3 days PREDNISONE 20543701044 No Longer Active Carlton Hu MD Active CEFDINIR 300 MG ORAL CAPSULE by mouth twice a day 2011 CEFDINIR 38185518771 No Longer Active Carlton Hu MD Acti ve CEFDINIR 300 MG ORAL CAPSULE by mouth twice a day 2010 CEFDINIR 14363205729 No Longer Active Carlton Hu MD Acti ve CEFDINIR 300 MG ORAL CAPSULE by mouth twice a day 2010 CEFDINIR 56715362964 No Longer Active Carlton Hu MD Acti ve TESSALON PERLES 100 MG ORAL CAPSULE 1 tablet by mouth 3 times daily as needed for cough BENZONATATE 91150795627 No Longer Active Carlton Hu MD Active CEFDINIR 300 MG ORAL CAPSULE by mouth twice a day 2010 CEFDINIR 99300469065 No Longer Active Carlton Hu MD Acti ve ZITHROMAX Z-REYNA 250 MG ORAL TABLET 2 today, then 1 daily for 4 d ays AZITHROMYCIN 77952516545 No Longer Active Hugo Restrepo MD Active TESSALON PERLES 100 MG ORAL CAPSULE 1 tablet by mouth 3 times daily as needed for cough TESSALON PERLES 100 MG ORAL CAPSULE 92878 7 BENZONATATE Inactive PREDNISONE 20 MG ORAL TABLET 1 po bid 3 days, then 1 po q day 3 days PREDNISONE 20 MG ORAL TABLET 253261 PREDNISONE Anthony ctive LORTAB 7.5-500 MG/15ML ORAL ELIXIR 7.5 [...] cough CHERATUSSIN AC 100-10 MG/5ML ORAL SYRUP 107036 GUAIFENESIN-CODEINE Inactive ACETAMINOPHEN-CODEINE #3 300-30 MG ORAL TABLET 1 tablet po q 4-6 hrs prn pain ACETAMINOPHEN-CODEINE #3 300-30 MG ORAL TABLET ACETAMINOPHEN-CODEINE Inactive HYDROCODONE-ACETAMINOPHEN 5-325 MG ORAL TABLET 1 po q 6hr PRN co ugh HYDROCODONE-ACETAMINOPHEN 5-325 MG ORAL TABLET 404881 HYDROCODONE-ACETAMINOPHEN Inactive AVELOX 400 MG ORAL TABLET 1 tab by mouth daily AVELOX 400 MG ORAL TABLET 137919 MOXIFLOXACIN HCL Inactive CHERATUSSIN AC 100-10 MG/5ML ORAL SYRUP 1 tsp by mouth every 4 hours as needed for cough CHERATUSSIN AC 100-10 MG/5ML ORAL SYRUP 9 68994 GUAIFENESIN-CODEINE Inactive TERBINAFINE HCL 250 MG ORAL TABLET 1 qDay 07/08 TERBINAFINE HCL 250 MG ORAL TABLET 828588 TERBINAFINE HCL Inactive CHERATUSSIN AC 100-10 MG/5ML ORAL SYRUP 1 tsp by mouth every 4 hours as needed for cough CHERATUSSIN AC 100-10 MG/5ML ORAL SYRUP 9 54800 GUAIFENESIN-CODEINE Inactive ACETAMINOPHEN-CODEINE #3 300-30 MG ORAL TABLET 1 PO Q 4-6 HRS [facility] N PAIN ACETAMINOPHEN-CODEINE #3 300-30 MG ORAL TABLET ACETAMINOPHEN-CODEINE Inactive CHERATUSSIN AC 100-10 MG/5ML ORAL SYRUP 1 tsp by mouth every 4 hours as needed for cough CHERATUSSIN AC 100-10 MG/5ML ORAL SYRUP 9 91159 GUAIFENESIN-CODEINE Inactive AUGMENTIN 875-125 MG ORAL TABLET 1 tab by mouth twice daily with food AUGMENTIN 875-125 MG ORAL TABLET 215957 AMOXICIL MADELINE-POT CLAVULANATE Inactive CHERATUSSIN AC 100-10 MG/5ML ORAL SYRUP take one tsp po Q 6h ours prn cough CHERATUSSIN AC 100-10 MG/5ML ORAL SYRUP 444845 GUAIFENESIN-CODEINE Inactive PROPRANOLOL HCL 60 MG ORAL TABLET 1 PO Q D PROPRANOLOL HCL 60 MG ORAL TABLET 291859 PROPRANOLOL HCL Inactive TOPAMAX 50 MG ORAL TABLET take 1 tab po BID for migraines. 07/02 TOPAMAX 50 MG ORAL TABLET 768921 TOPIRAMATE Inacti ve TOPAMAX 25 MG ORAL TABLET 1 qHS x 1 week, then 1 BID x 1 week, then 1 qAM and 2 qHS x 1 week, then 2 BID (migraine prevention) TOPAMAX 25 MG ORAL TABLET 605437 TOPIRAMATE Inactive LYRICA 75 MG ORAL CAPSULE TAKE 1 CAPSULE BY MOUTH TWICE DAILY LYRICA 75 MG ORAL CAPSULE PREGABALIN Inactive SYMBICORT 160-4.5 MCG/ACT INHALATION AEROSOL 2 puffs bid wit h rinse after SYMBICORT 160-4.5 MCG/ACT INHALATION AEROSOL BUDESONIDE- FORMOTEROL FUMARATE Inactive PROMETHAZINE-CODEINE 6.25-10 MG/5ML ORAL SYRUP 1 tsp b y mouth every 8 hours prn cough PROMETHAZINE-CODEINE 6.25-10 MG/ 5ML ORAL SYRUP 833699 PROMETHAZINE-CODEINE Inactive CYMBALTA 30 MG ORAL CAPSULE DELAYED RELEASE PARTICLES 1 cap by mouth daily CYMBALTA 30 MG ORAL CAPSULE DELAYED RELE ASE PARTICLES 012560 DULOXETINE HCL Inactive PREMARIN 0.625 MG ORAL TABLET TAKE 1 TAB BY MOUTH DAILY PREMARIN 0.625 MG ORAL TABLET ESTROGENS CONJUGATED Inactive CHERATUSSIN AC 100-10 MG/5ML ORAL SYRUP 1 tsp by mouth every 4 hours as needed for cough CHERATUSSIN AC 100-10 MG/5ML ORAL SYRUP 9 84852 GUAIFENESIN-CODEINE Inactive PROMETHAZINE-CODEINE 6.25-10 MG/5ML ORAL SYRUP 1 tsp b y mouth every 6 hours if needed for cough PROMETHAZINE-CODEINE 6.25-10 MG/5ML ORAL SYRUP 908552 PROMETHAZINE-CODEINE Inactive CHERATUSSIN AC 100-10 MG/5ML ORAL SYRUP 1 tsp by mouth every 4 hours as needed for cough CHERATUSSIN AC 100-10 MG/5ML ORAL SYRUP 9 48972 GUAIFENESIN-CODEINE Inactive FLUTICASONE PROPIONATE 50 MCG/ACT NASAL SUSPENSION 1 t o 2 sprays each nostril daily FLUTICASONE PROPIONATE 50 MCG/AC T NASAL SUSPENSION 3406225 FLUTICASONE PROPIONATE Inactive PREDNISONE 20 MG ORAL TABLET 3 tab PO qd x 2d, 2 tab P O qd x 2d, 1 tab PO qd x 2d, 1/2 tab PO qd x 2d PREDNISONE 20 MG ORAL TAB LET 788976 PREDNISONE Inactive LEVOFLOXACIN 500 MG ORAL TABLET 1 tab PO daily x 10 days LEVOFLOXACIN 500 MG ORAL TABLET 814131 LEVOFLOXACIN Inactive CYCLOBENZAPRINE HCL 10 MG ORAL TABLET 1 tablet by mouth BID prn had pain CYCLOBENZAPRINE HCL 10 MG ORAL TABLET 054458 CYCLOBENZAPRINE HCL Inactive ZOCOR 40 MG ORAL TABLET 1 tab by mouth daily 4 ZOCOR 40 MG ORAL TABLET 822124 SIMVASTATIN Inactive TUSSIONEX PENNKINETIC ER 10-8 MG/5ML [...] FLUTICASONE PROPIO EFE 50 MCG/ACT NASAL SUSPENSION 3122379 FLUTICASONE PROPIONATE Inactive TUSSIONEX PENNKINETIC ER 10-8 [...] a day as needed for cough TUSSIONEX ILSA KINETIC ER 10-8 MG/5ML ORAL SUSPENSION EXTENDED [...] three days PREDNISONE 20 MG ORAL TABLET 024931 PREDNIS ONE Inactive PROAIR HFA 108 (90 BASE) MCG/ACT INHALATION AEROSOL SO LUTION 2 puffs four times a day as needed PROAIR HFA 108 (90 B ASE) MCG/ACT INHALATION AEROSOL SOLUTION ALBUTEROL SULFATE Inactive ZITHROMAX Z-REYNA 250 MG ORAL TABLET 2 today, then 1 daily for 4 d ays ZITHROMAX Z-REYNA 250 MG ORAL TABLET 001984 AZITHROMYCIN Inactive CEFDINIR 300 MG ORAL CAPSULE by mouth twice a day 2010 CEFDINIR 300 MG ORAL CAPSULE 154860 CEFDINIR Inactive CEFDINIR 300 MG ORAL CAPSULE [...] 2-5 03/07/07 ZITHROMAX 250 MG ORAL TABLET 544249 AZITHROMYCIN Greer ctive CEFDINIR 300 MG ORAL CAPSULE by mouth twice a day 2011 CEFDINIR 300 MG ORAL CAPSULE 20020704 CEFDINIR Inactive PREDNISONE 20 MG ORAL TABLET 2 tabs daily for 3 days, 1 tab daily for 3 days, 1/2 tab daily for 2 days PREDNISONE 20 MG ORAL T ABLET 725802 PREDNISONE Inactive AVELOX 400 MG ORAL TABLET 1 tab by mouth daily AVELOX 400 MG ORAL TABLET 977831 MOXIFLOXACIN HCL Inactive AVELOX 400 MG ORAL TABLET 1 tab by mouth daily AVELOX 400 MG ORAL TABLET 953782 MOXIFLOXACIN HCL Inactive PREDNISONE 20 MG ORAL TABLET Take 3 tabs daily for 3 d ays, 2 tabs daily for 3 days, 1 tab daily for 3 days, 1/2 tab daily for 3 days 11/07 PREDNISONE 20 MG ORAL TABLET 511572 PREDNISONE Inactive LEVAQUIN 500 MG ORAL TABLET take one po QD LEVAQUIN 500 MG ORAL TABLET 372833 LEVOFLOXACIN Inactive AZITHROMYCIN 250 MG ORAL TABLET 2 po qd x 1 day, then 1 po q d x 4 days AZITHROMYCIN 250 MG ORAL TABLET 611492 AZITHROMY GIOVANNI Inactive MEDROL 4 MG ORAL TABLET THERAPY PACK 6 tabs on day 1, 5 tabs on day 2, 4 tabs on day 3, 3 tabs on day 4, 2 tabs on day 5, 1 tab on day 6 2013 MEDROL 4 MG ORAL TABLET THERAPY PACK 305228 METHYLPREDNISOLONE Greer ctive CHERATUSSIN AC 100-10 MG/5ML ORAL SYRUP 5ml po q6hr PRN Cough 20 13/04/14 CHERATUSSIN AC 100-10 MG/5ML ORAL SYRUP 310449 GUAIFENE SIN-CODEINE Inactive TRIAMCINOLONE ACETONIDE 0.1 % EXTERNAL CREAM apply three roger es daily prn rash TRIAMCINOLONE ACETONIDE 0.1 % EXTERNAL CREAM 101 4314 TRIAMCINOLONE ACETONIDE Inactive AZITHROMYCIN 250 MG ORAL TABLET 2 po qd x 1 day, then 1 po q d x 4 days AZITHROMYCIN 250 MG ORAL TABLET 678836 AZITHROMY GIOVANNI Inactive MEDROL 4 MG ORAL TABLET THERAPY PACK 6 pills x 1 day, then 5 pills x 1 day then 4 pills x 1 day, then 3 pills x 1 day, then 2 pills x 1 day, then 1 pill x 1 day, then stop MEDROL 4 MG ORAL TABLET THERAPY PACK 161915 METHYLPREDNISOLONE Inactive AMOXICILLIN 500 MG ORAL CAPSULE 1 tab by mouth 3 times daily x 10 days AMOXICILLIN 500 MG ORAL CAPSULE 626746 AMOXICILL IN Inactive AMOXICILLIN 500 MG ORAL CAPSULE 1 tab by mouth 3 times daily x 10 days AMOXICILLIN 500 MG ORAL CAPSULE 457740 AMOXICILL IN Inactive ZITHROMAX 250 MG ORAL TABLET 2 po today, then 1 po q days 2-5 20 12/08/14 ZITHROMAX 250 MG ORAL TABLET 998850 AZITHROMYCIN Anthony ctive AUGMENTIN 875-125 MG ORAL TABLET 1 po BID x 10 days 20 13/01/20 AUGMENTIN 875-125 MG ORAL TABLET 201222 AMOXICILLIN-POT CLAVULANATE Inactive ZITHROMAX Z-REYNA 250 MG ORAL TABLET 2 today, then 1 daily for 4 d ays ZITHROMAX Z-REYNA 250 MG ORAL TABLET 688590 AZITHROMYCIN Inactive ZITHROMAX 250 MG ORAL TABLET 2 po today, then 1 po q days 2-5 20 14/03/21 ZITHROMAX 250 MG ORAL TABLET 715697 AZITHROMYCIN Anthony ctive ZITHROMAX Z-REYNA 250 MG ORAL TABLET 2 today, then 1 daily for 4 d ays ZITHROMAX Z-REYNA 250 MG ORAL TABLET 531172 AZITHROMYCIN Inactive CEFDINIR 300 MG ORAL CAPSULE 1 po BID x 10 days 06/21 CEFDINIR 300 MG ORAL CAPSULE 20020704 CEFDINIR Inactive ZITHROMAX 250 MG ORAL TABLET 2 po today, then 1 po q days 2-5 20 13/08/10 ZITHROMAX 250 MG ORAL TABLET 551483 AZITHROMYCIN Greer ctive LEVAQUIN 500 MG ORAL TABLET 1 tablet by mouth daily 13/09/24 LEVAQUIN 500 MG ORAL TABLET 19971102 LEVOFLOXACIN Inactive SINGULAIR 10 MG ORAL TABLET 1 po qday for allergies 20 14/01/12 SINGULAIR 10 MG ORAL TABLET 20010504 MONTELUKAST SODIUM Inactive AMOXICILLIN 500 MG ORAL CAPSULE 2 po BID x 10 days 201 09/29/08 AMOXICILLIN 500 MG ORAL CAPSULE 650335 AMOXICILLIN Inactive PREDNISONE 20 MG ORAL TABLET 2 tabs daily for 3 days, 1 tab daily for 3 days, 1/2 tab daily for 2 days PREDNISONE 20 MG ORAL T ABLET 291986 PREDNISONE Inactive ZITHROMAX Z-REYNA 250 MG ORAL TABLET 2 today, then 1 daily for 4 d ays ZITHROMAX Z-REYNA 250 MG ORAL TABLET 498534 AZITHROMYCIN Inactive PREDNISONE 20 MG ORAL TABLET 2 tabs daily for 3 days, 1 tab daily for 3 days, 1/2 tab daily for 2 days PREDNISONE 20 MG ORAL T ABLET 464089 PREDNISONE Inactive ZITHROMAX 250 MG ORAL TABLET 2 po today, then 1 po q days 2-5 20 14/09/04 ZITHROMAX 250 MG ORAL TABLET 317970 AZITHROMYCIN Greer ctive AMOXICILLIN 500 MG ORAL CAPSULE 1 cap by mouth three times a day AMOXICILLIN 500 MG ORAL CAPSULE 754878 AMOXICILLIN Inactive TERBINAFINE HCL 250 MG ORAL TABLET 1 qDay for nail fungus 7 TERBINAFINE HCL 250 MG ORAL TABLET 705948 TERBINAFINE HCL Inact nael AUGMENTIN 875-125 MG ORAL TABLET 1 po BID x 10 days 16/03/22 AUGMENTIN 875-125 MG ORAL TABLET 197017 AMOXICILLIN-POT CLAVULANATE Inactive PREDNISONE 20 MG ORAL TABLET 2 po qd x 5 days PREDNISONE 20 MG ORAL TABLET 119383 PREDNISONE Inactive Vital Signs Date Name Value [...] - Chem istry sodium, serum 132 mmol/L 703-160 6844/07/12 potassium, serum 2.7 mmol/L 3.5-5.2 chloride, serum 93 mmol/L 98-107 carbon dioxide, venous blood 30.8 mmol/L 21.0-32 .0 blood glucose 107 mg/dL 65-110 calcium, serum 9.3 mg/dL 8.5-10.1 urea nitrogen, blood 12 mg/dL 7-18 creatinine, serum 1.00 mg/dL 0.60-1.30 sodium, serum 142 mmol/L [phone]/07/17 potassium, serum 4.2 mmol/L 3.5-5.2 chloride, serum 106 mmol/L 98-107 carbon dioxide, venous blood 29.9 mmol/L 21.0-32 .0 blood glucose 108 mg/dL 65-110 calcium, serum 9.1 mg/dL 8.5-10.1 urea nitrogen, blood 11 mg/dL 7-18 creatinine, serum 0.81 mg/dL 0.60-1.30 sodium, serum 139 mmol/L [phone]/03/19 potassium, serum 3.6 mmol/L 3.5-5.2 chloride, serum 100 mmol/L 98-107 carbon dioxide, venous blood 30.3 mmol/L 21.0-32 .0 blood glucose 101 mg/dL 65-110 calcium, serum 9.4 mg/dL 8.5-10.1 urea nitrogen, blood 10 mg/dL 7- creatinine, serum 0.96 mg/dL 0.60-1.30 Lab Report: Rapid Strep - Lab Microbial identification kit, rapid strep method Negative Negative Encounters Code Encounter Date Provider Facility CPT-75621 Level 3 Est. Patient 11:34:49 TOOTH GRINDER Perez Mora MD [facility] CPT-96291 Level 4 Est. Patient 09:51:32 TOOTH GRINDER Carlton rich MD [facility] CPT-96294 Level 3 Est. Patient 10:26:00 TOOTH GRINDER Elise stephenson [facility] CPT-30065 Level 3 Est. Patient 13:35:41 TOOTH GRINDER Carlton rich MD [facility] CPT-47715 Level 3 Est. Patient 10:03:52 TOOTH GRINDER Carlton rich MD [facility] CPT-18483 Level 3 Est. Patient 12:17:50 CDT Hugo Restrepo MD [facility] CPT-02601 Level 3 Est. Patient 13:42:38 CDT Elise stephenson [facility] CPT-75132 Level 3 Est. Patient 13:23:51 CDT Diya cobian [facility]-09368 Level 3 Est. Patient 14:22:19 TOOTH GRINDER Diya cobian [facility] CPT-50651 Level 3 Est. Patient 10:11:46 CDT Carlton rich MD [facility] CPT-33735 Level 3 Est. Patient 17:29:43 CDT Elise Are ll SPRAGGER [facility] CPT-56325 Level 3 Est. Patient 11:58:06 CDT Elise Are ll SPRAGGER [facility] CPT-43856 Level 4 Est. Patient 14:36:51 CDT Carlton rich MD [facility] CPT-96063 Level 3 Est. Patient 18:16:00 TOOTH GRINDER Blaine Freeman [facility] CPT-38245 Level 3 Est. Patient 09:45:49 TOOTH GRINDER Carlton rich MD [facility] CPT-42774 Level 3 Est. Patient 13:19:20 CDT Carlton rich MD [facility] CPT-54165 Level 3 Est. Patient 13:06:43 CDT Ridge tam DO [facility] CPT-74047 Level 3 Est. Patient 10:03:07 CDT Perez Mora MD [facility] CPT-94938 Level 3 Est. Patient 19:50:35 TOOTH GRINDER Carlton rich MD [facility] CPT-52428 Level 4 Est. Patient 18:05:01 TOOTH GRINDER Carlton rcih MD [facility] CPT-46639 Level 3 Est. Patient 10:45:55 TOOTH GRINDER Hugo Restrepo MD [facility] CPT-46024 Level 3 Est. Patient 14:12:49 CDT Griffin lincoln [facility] CPT-37623 Level 3 Est. Patient 17:37:24 CDT Carlton rich MD [facility] CPT-21036 Level 3 Est. Patient 16:51:54 CDT Carlton rich MD [facility] CPT-33070 Level 3 Est. Patient 12:18:11 CDT Hugo Restrepo MD [facility] CPT-62771 Level 3 Est. Patient 11:30:25 CDT Marcy crisostomo MD PhD [facility] CPT-73595 Level 3 Est. Patient 12:00:47 TOOTH GRINDER Carlton rich MD [facility] CPT-79367 Level 3 Est. Patient 16:31:06 TOOTH GRINDER Carlton rich MD [facility] CPT-01724 Level 3 Est. Patient 16:23:24 TOOTH GRINDER Ridge tam [facility] CPT-81836 Level 3 Est. Patient 12:34:12 CDT Carlton rich MD [facility] CPT-73387 Level 2 Est. Patient 15:43:33 CDT Robi armstrong MD [facility] CPT-02381 Level 4 Est. Patient 14:04:44 CDT Carlton rich MD [facility] CPT-67207 Level 3 Est. Patient 05:47:59 CDT Ridge tam [facility] CPT-10483 Level 3 Est. Patient 13:12:53 TOOTH GRINDER Carlton rich MD [facility] CPT-14242 Level 3 Est. Patient 14:26:53 CDT Hugo Restrepo MD [facility] Procedures Code Procedure Name Date Entry Date Standard Desc ription CPT-J1040 Depo Medrol 80 mg (Methyl Prednisolone A cetate) 10:42:44 CDT CPT-J1100 Decadron 8mg (Dexamethasone) 10:42:44 CDT 2 CPT-J0696 Rocephin 1gm Inj Solr 14:32:13 CDT CPT-J1020 Depo Medrol 60 mg (Methyl Prednisolone A cetate) 14:32:13 CDT CPT-J1100 Decadron 6mg (Dexamethasone) 14:32:13 CDT 2 CPT-11417 Hip bilat min 2V w AP pelvis 13:16:20 CDT 2 CPT-85710 Pelvis only 13:07:33 CDT CPT-48834 Spec Collection and Handling Fee 11:25:12 C DT CPT-22482 Fluzone Quadrivalent Intramuscular Suspe nsion 0.5 ML 14:31:55 CDT CPT-43634 Abx/Therapy Injection 13:28:47 TOOTH GRINDER CPT-J2930 Solu Medrol 125 mg (Methyl Prednisolone Sodium Succinate) 12:00:47 TOOTH GRINDER CPT-19027 Venipuncture Draw Fee 11:33:31 CDT CPT-79177 EKG Trac and Interp 11:21:09 CDT CPT-61112 Chest 2V Frontal and Lat 11:21:09 CDT 12/15 CPT-32963 Venipuncture Draw Fee 08:02:34 CDT CPT-38706 Chest 2V Frontal and Lat 05:47:59 CDT 06/05
--- OUTSIDE RECORDS SUMMARY | 2019-10-08 08:15 | XMS REPORT | Clinical Summary ---
Author Author Caitlin, Juliana Martinez Organization [facility] Address Unknown Phone Unavailable Allergies, Adverse [...] dermatitis and related conditions Headache 784.0 Active Cartlon u[facility] MD Headache Preventive health care V70.0 Active [...] qDay for nail fungus 7 TERBINAFINE HCL 54906724967 No Longer Active Carlton Hu MD A ctive TUSSIONEX PENNKINETIC ER 10-8 MG/5ML ORAL SUSPENSION E XTENDED RELEASE 5ml po q12hr PRN Cough HYDROCOD POLST-CHLORPHEN POLST 50153087068 Active Carlton Hu MD Active PREDNISONE 20 MG ORAL TABLET 1 tab twice daily for 3 d ay, then one daily for three days PREDNISONE 67347704678 Active Carlton Hu MD Active AMOXICILLIN 500 MG ORAL CAPSULE 1 cap by mouth three times a day AMOXICILLIN 39374087393 No Longer Active Carlton Hu MD Active ELMIRON 100 MG ORAL CAPSULE 2 tablets in the am and 1 tablet at hs PENTOSAN POLYSULFATE SODIUM 75609617497 No Longer Active Robert jade Hu MD Active MUCINEX D 60-600 MG ORAL TABLET EXTENDED RELEASE 12 HOUR 1 t ab po q am PSEUDOEPHEDRINE-GUAIFENESIN 15806425938 No Longer Act nael Carlton Hu MD Active MUCINEX DM MAXIMUM STRENGTH 60-1200 MG ORAL TABLET EXT ENDED RELEASE 12 HOUR 1 tab po q am DEXTROMETHORPHAN-GUAIFENESIN 59511898433 No Longer Active Carlton Hu MD Active TUSSIONEX PENNKINETIC ER 10-8 MG/5ML ORAL SUSPENSION E XTENDED RELEASE 5ml po q12hr PRN Cough HYDROCOD POLST-CHLORPHEN POLST 5 9588709647 No Longer Active Carlton Hu MD Active POTASSIUM CHLORIDE ER 20 MEQ ORAL TABLET EXTENDED RELE ASE Take 1 by mouth 4 times daily for 7 days POTASSIUM CHLORIDE 64722924352 No Longer Active Carlton Hu MD Active ZITHROMAX 250 MG ORAL TABLET 2 po today, then 1 po q days 2-5 20 14/09/04 AZITHROMYCIN 48024454800 No Longer Active Elise Whitmore APRN Active TUSSIONEX PENNKINETIC ER 10-8 MG/5ML ORAL SUSPENSION E XTENDED RELEASE 5 ml twice a day as needed for cough HYDROCOD POLST-CHLORPH EN POLST 69620115310 No Longer Active Elise Whitmore APRN Active MONTELUKAST SODIUM 10 MG ORAL TABLET 1 po daily for Allergy MONTELUKAST SODIUM 25779691345 Active Carlton Hu MD Ac tive TUSSIONEX PENNKINETIC ER 10-8 MG/5ML ORAL SUSPENSION E XTENDED RELEASE 5ml po q12hr PRN Cough HYDROCOD POLST-CHLORPHEN POLST 5 5978069333 No Longer Active Hugo Restrepo MD Active GABAPENTIN 100 MG ORAL CAPSULE 1 po BID for fibromyalgia GABAPENTIN 96450221789 Active Elise Whitmore APRN Active LYRICA 100 MG ORAL CAPSULE Take 1 tab po BID for fibromyalgia 20 11/08/21 PREGABALIN 81427131264 No Longer Active Elise Whitmore APRN Active PROAIR HFA 108 (90 Base) MCG/ACT INHALATION AEROSOL SO LUTION 2 puffs four times a day as needed ALBUTEROL SULFATE 61349271705 Active Lyndsay Whitmore APRN Active PREDNISONE 20 MG ORAL TABLET 2 tabs daily for 3 days, 1 tab daily for 3 days, 1/2 tab daily for 2 days PREDNISONE 74064716381 No Longer Active Jillina Frazelbhakti KAHN Active TUSSIONEX PENNKINETIC ER 10-8 MG/5ML ORAL SUSPENSION E XTENDED RELEASE 5 mL PO q 12 hrs PRN cough HYDROCOD POLST-CHLORPHEN POLST 993430 65205 No Longer Active Jillina Frazell BILL Active FLUTICASONE PROPIONATE 50 MCG/ACT NASAL SUSPENSION 2 s prays each nostril daily until bottle is empty FLUTICASONE PROPIONATE 107491804 99 No Longer Active Jillina Frazell [employer]IVITIES CONCIERGE Active ASMANEX 60 METERED DOSES 220 MCG/INH INHALATION AEROSO L POWDER BREATH ACTIVATED 1 puff bid with rinse after MOMETASONE FUROATE 4579728 4102 No Longer Active Jillina Frazell [employer]IVIT[employer] Active ZITHROMAX Z-REYNA 250 MG ORAL TABLET 2 today, then 1 daily for 4 d ays AZITHROMYCIN 18483349099 No Longer Active Elise Whitmore APRN Active TUSSIONEX PENNKINETIC ER 10-8 MG/5ML ORAL SUSPENSION E XTENDED RELEASE 5ml po q12hr PRN Cough HYDROCOD POLST-CHLORPHEN POLST 5 3513675382 No Longer Active Elise Haim [employer]IVITIES [employer]CIERGE Active PREDNISONE 20 MG ORAL TABLET 2 tabs daily for 3 days, 1 tab daily for 3 days, 1/2 tab daily for 2 days PREDNISONE 23955077813 No Longer Active Diya De Guzman APRN Active AMOXICILLIN 500 MG ORAL CAPSULE 2 po BID x 10 days 201 09/29/08 AMOXICILLIN 52988396635 No Longer Active Diya De Guzman APRN Act nael SINGULAIR 10 MG ORAL TABLET 1 po qday for allergies 20 14/01/12 MONTELUKAST SODIUM 79858568265 No Longer Active Carlton Hu MD Active LEVAQUIN 500 MG ORAL TABLET 1 tablet by mouth daily 13/09/24 LEVOFLOXACIN 32622362559 No Longer Active Carlton Hu MD Acti ve FLUTICASONE PROPIONATE 50 MCG/ACT NASAL SUSPENSION 2 s prays each nostril daily for 2 weeks, then 1 spray each nostril daily. FLUTICASONE PROPIONATE 82258957276 Active Elise Whitmore APRN Active ZITHROMAX 250 MG ORAL TABLET 2 po today, then 1 po q days 2-5 20 13/08/10 AZITHROMYCIN 08178769946 No Longer Active Elise Whitmore APRN Active XANAX 0.5 MG ORAL TABLET one tablet by mouth daily prn anxiety 2015 ALPRAZOLAM 67934229206 Active Carlton Hu MD Active CYMBALTA 30 MG ORAL CAPSULE DELAYED RELEASE PARTICLES 1 cap by mouth daily for depression DULOXETINE HCL 63174591093 Active Carlton beltrán MD Active CEFDINIR 300 MG ORAL CAPSULE 1 po BID x 10 days CEFDINIR 58453166937 No Longer Active Carlton Hu MD Active ZOCOR 40 MG ORAL TABLET 1 tab by mouth daily SI MVASTATIN 77623567193 No Longer Active Carlton Hu MD Active CYCLOBENZAPRINE HCL 10 MG ORAL TABLET 1 tablet by mouth BID prn had pain CYCLOBENZAPRINE HCL 21605371846 No Longer Active Jayden Hu MD Active LEVOFLOXACIN 500 MG ORAL TABLET 1 tab PO daily x 10 days LEVOFLOXACIN 00343768756 No Longer Active Carlton Hu MD Acti ve PREDNISONE 20 MG ORAL TABLET 3 tab PO qd x 2d, 2 tab P O qd x 2d, 1 tab PO qd x 2d, 1/2 tab PO qd x 2d PREDNISONE 18075148594 No Lo nger Active Carlton Hu MD Active FLUTICASONE PROPIONATE 50 MCG/ACT NASAL SUSPENSION 1 t o 2 sprays each nostril daily FLUTICASONE PROPIONATE 64647035331 No Longer Ac tive Blaine HERNANDEZ Active CHERATUSSIN AC 100-10 MG/5ML ORAL SYRUP 1 tsp by mouth every 4 hours as needed for cough GUAIFENESIN-CODEINE 91946869462 No Longe r Active Blaine HERNANDEZ Active PROMETHAZINE-CODEINE 6.25-10 MG/5ML ORAL SYRUP 1 tsp b y mouth every 6 hours if needed for cough PROMETHAZINE-CODEINE 40809479501 No Longer Active Blaine HERNANDEZ Active CHERATUSSIN AC 100-10 MG/5ML ORAL SYRUP 1 tsp by mouth every 4 hours as needed for cough GUAIFENESIN-CODEINE 75935573364 No Longe r Active Blaine HERNANDEZ Active ZITHROMAX Z-REYNA 250 MG ORAL TABLET 2 today, then 1 daily for 4 d ays AZITHROMYCIN 15267213200 No Longer Active Columba Raida Act nael ZITHROMAX 250 MG ORAL TABLET 2 po today, then 1 po q days 2-5 20 14/03/21 AZITHROMYCIN 47498015137 No Longer Active Carlton Hu MD Active ZITHROMAX Z-REYNA 250 MG ORAL TABLET 2 today, then 1 daily for 4 d ays AZITHROMYCIN 99486870967 No Longer Active Columba Raida Act nael AUGMENTIN 875-125 MG ORAL TABLET 1 po BID x 10 days 20 13/01/20 AMOXICILLIN-POT CLAVULANATE 88779770103 No Longer Active Diya Daphnebrayan KHAN Active ZITHROMAX 250 MG ORAL TABLET 2 po today, then 1 po q days 2-5 20 12/08/14 AZITHROMYCIN 24824151630 No Longer Active Carlton Hu MD Active TRAMADOL HCL 50 MG ORAL TABLET 1 po tid with ES Tylenol TRAMADOL HCL 36570468249 Active Carlton Hu MD Active PREMARIN 0.625 MG ORAL TABLET TAKE 1 TAB BY MOUTH DAILY ESTROGENS CONJUGATED 40951637624 No Longer Active Ridge Bess DO A ctive CYMBALTA 30 MG ORAL CAPSULE DELAYED RELEASE PARTICLES 1 cap by mouth daily DULOXETINE HCL 84227001434 No Longer Active Ridge tam DO Active AMOXICILLIN 500 MG ORAL CAPSULE 1 tab by mouth 3 times daily x 10 days AMOXICILLIN 40795963965 No Longer Active Carlton bustamante MD Active AMOXICILLIN 500 MG ORAL CAPSULE 1 tab by mouth 3 times daily x 10 days AMOXICILLIN 48990896652 No Longer Active Carlton bustamante MD Active PROMETHAZINE-CODEINE 6.25-10 MG/5ML ORAL SYRUP 1 tsp b y mouth every 8 hours prn cough PROMETHAZINE-CODEINE 65195914351 No Longer Acti ve Carlton Hu MD Active MEDROL 4 MG ORAL TABLET THERAPY PACK 6 pills x 1 day, then 5 pills x 1 day then 4 pills x 1 day, then 3 pills x 1 day, then 2 pills x 1 day, then 1 pill x 1 day, then stop METHYLPREDNISOLONE 01283446796 No Long er Active Perez Mora MD Active AZITHROMYCIN 250 MG ORAL TABLET 2 po qd x 1 day, then 1 po q d x 4 days AZITHROMYCIN 08569888469 No Longer Active Perez Ambriz MD Active SYMBICORT 160-4.5 MCG/ACT INHALATION AEROSOL 2 puffs bid wit h rinse after BUDESONIDE-FORMOTEROL FUMARATE 07097491330 N o Longer Active Perez Mora MD Active LYRICA 75 MG ORAL CAPSULE TAKE 1 CAPSULE BY MOUTH TWICE DAILY PREGABALIN 08391361392 No Longer Active Carlton Hu MD Acti ve TOPAMAX 25 MG ORAL TABLET 1 qHS x 1 week, then 1 BID x 1 week, then 1 qAM and 2 qHS x 1 week, then 2 BID (migraine prevention) T OPIRAMATE 75601416330 No Longer Active Jerica FUENTES Active TOPAMAX 50 MG ORAL TABLET take 1 tab po BID for migraines. 07/02 TOPIRAMATE 18277392149 No Longer Active Jerica FUENTES Active TOPAMAX 100 MG ORAL TABLET Take 1 tablet po bid TO PIRAMATE 32770149301 Active Carlton Hu MD Active TRIAMCINOLONE ACETONIDE 0.1 % EXTERNAL CREAM apply three roger es daily prn rash TRIAMCINOLONE ACETONIDE 19697478829 No Longer Active Carlton Hu MD Active PAXIL 40 MG ORAL TABLET take 1 tab po qday for depression 0 PAROXETINE HCL 65870671144 Active aCrlton Hu MD Active CHERATUSSIN AC 100-10 MG/5ML ORAL SYRUP 5ml po q6hr PRN Cough 20 13/04/14 GUAIFENESIN-CODEINE 54721314913 No Longer Active Carlton Hu MD Active MEDROL 4 MG ORAL TABLET THERAPY PACK 6 tabs on day 1, 5 tabs on day 2, 4 tabs on day 3, 3 tabs on day 4, 2 tabs on day 5, 1 tab on day 6 2013 METHYLPREDNISOLONE 70589631428 No Longer Active Perez Mora MD Active AZITHROMYCIN 250 MG ORAL TABLET 2 po qd x 1 day, then 1 po q d x 4 days AZITHROMYCIN 19034643822 No Longer Active Perez Ambriz MD Active PROPRANOLOL HCL 60 MG ORAL TABLET 1 PO Q D PROPRANOLOL HCL 20943056793 No Longer Active Perez Mora MD Activ e CHERATUSSIN AC 100-10 MG/5ML ORAL SYRUP take one tsp po Q 6h ours prn cough GUAIFENESIN-CODEINE 23094195524 No Longer Active Zia Mora MD Active AUGMENTIN 875-125 MG ORAL TABLET 1 tab by mouth twice daily with food AMOXICILLIN-POT CLAVULANATE 79163901540 No Longer Act nael Mora MD Active CHERATUSSIN AC 100-10 MG/5ML ORAL SYRUP 1 tsp by mouth every 4 hours as needed for cough GUAIFENESIN-CODEINE 25945279864 No Longe r Active Hugo Restrepo MD Active ACETAMINOPHEN-CODEINE #3 300-30 MG ORAL TABLET 1 PO Q 4-[address] PAIN ACETAMINOPHEN-CODEINE 65381641756 No Longer Active Hugo Restrepo MD Active LEVAQUIN 500 MG ORAL TABLET take one po QD LEVO FLOXACIN 32617483950 No Longer Active Griffin HERNANDEZ Active PREDNISONE 20 MG ORAL TABLET Take 3 tabs daily for 3 d ays, 2 tabs daily for 3 days, 1 tab daily for 3 days, 1/2 tab daily for 3 days 11/07 PREDNISONE 22743935935 No Longer Active Carlton Hu MD Acti ve AVELOX 400 MG ORAL TABLET 1 tab by mouth daily MOXIFLOXACIN HCL 39220004084 No Longer Active Carlton Hu MD Active CHERATUSSIN AC 100-10 MG/5ML ORAL SYRUP 1 tsp by mouth every 4 hours as needed for cough GUAIFENESIN-CODEINE 09958127431 No Longe r Active Hugo Restrepo MD Active AVELOX 400 MG ORAL TABLET 1 tab by mouth daily MOXIFLOXACIN HCL 93220173635 No Longer Active Marcy De La Rosa MD PhD Active TERBINAFINE HCL 250 MG ORAL TABLET 1 qDay T ERBINAFINE HCL 68208995636 No Longer Active Marcy De La Rosa MD PhD Active CHERATUSSIN AC 100-10 MG/5ML ORAL SYRUP 1 tsp by mouth every 4 hours as needed for cough GUAIFENESIN-CODEINE 56276253830 No Longe r Active Marcy De La Rosa MD PhD Active AVELOX 400 MG ORAL TABLET 1 tab by mouth daily MOXIFLOXACIN HCL 71496240520 No Longer Active Marcy De La Rosa MD PhD Active HYDROCODONE-ACETAMINOPHEN 5-325 MG ORAL TABLET 1 po q 6hr PRN co ugh HYDROCODONE-ACETAMINOPHEN 90039523026 No Longer Active Marcy De La Rosa MD PhD Active PREDNISONE 20 MG ORAL TABLET 2 tabs daily for 3 days, 1 tab daily for 3 days, 1/2 tab daily for 2 days PREDNISONE 28395423926 No Longer Active Carlton Hu MD Active CEFDINIR 300 MG ORAL CAPSULE by mouth twice a day 2011 CEFDINIR 84338159554 No Longer Active Carlton Hu MD Acti ve HYDROCHLOROTHIAZIDE 25 MG ORAL TABLET 1 TAB PO DAILY HYDROCHLOROTHIAZIDE 71483083399 Active Carlton Hu MD A ctive ACETAMINOPHEN-CODEINE #3 300-30 MG ORAL TABLET 1 tablet po q 4-6 hrs prn pain ACETAMINOPHEN-CODEINE 45159946603 No Longer Active Ridge Bess DO Active ZITHROMAX 250 MG ORAL TABLET 2 po today, then 1 po q days 2-5 20 03/07/07 AZITHROMYCIN 08997319100 No Longer Active Carlton Hu MD Active CHERATUSSIN AC 100-10 MG/5ML ORAL SYRUP take 1 tsp po q4-6 h ours prn cough GUAIFENESIN-CODEINE 53142754968 No Longer Active Jayden Hu MD Active ACETAMINOPHEN-CODEINE #3 300-30 MG ORAL TABLET 1 PO Q 4-6 HR PRN PAIN ACETAMINOPHEN-CODEINE 05062701508 No Longer Active Arnol Hu MD Active LORTAB 7.5-500 MG/15ML ORAL ELIXIR 7.5 ml po q 4 hour prn cough HYDROCODONE-ACETAMINOPHEN 42073743913 No Longer Active Carlton Hu MD Active PREDNISONE 20 MG ORAL TABLET 1 po bid 3 days, then 1 po q day 3 days PREDNISONE 05556407787 No Longer Active Carlton Hu MD Active CEFDINIR 300 MG ORAL CAPSULE by mouth twice a day 2011 CEFDINIR 15997619710 No Longer Active Carlton Hu MD Acti ve CEFDINIR 300 MG ORAL CAPSULE by mouth twice a day 2010 CEFDINIR 00428885186 No Longer Active Carlton Hu MD Acti ve CEFDINIR 300 MG ORAL CAPSULE by mouth twice a day 2010 CEFDINIR 93268886999 No Longer Active Carlton Hu MD Acti ve TESSALON PERLES 100 MG ORAL CAPSULE 1 tablet by mouth 3 times daily as needed for cough BENZONATATE 59987146159 No Longer Active Carlton Hu MD Active CEFDINIR 300 MG ORAL CAPSULE by mouth twice a day 2010 CEFDINIR 69053044937 No Longer Active Carlton Hu MD Acti ve ZITHROMAX Z-REYNA 250 MG ORAL TABLET 2 today, then 1 daily for 4 d ays AZITHROMYCIN 44381113152 No Longer Active Hugo Restrepo MD Active TESSALON PERLES 100 MG ORAL CAPSULE 1 tablet by mouth 3 times daily as needed for cough TESSALON PERLES 100 MG ORAL CAPSULE 44630 7 BENZONATATE Inactive PREDNISONE 20 MG ORAL TABLET 1 po bid 3 days, then 1 po q day 3 days PREDNISONE 20 MG ORAL TABLET 710810 PREDNISONE [place] ctive LORTAB 7.5-500 MG/15ML ORAL ELIXIR 7.5 ml po q 4 hour prn cough LORTAB 7.5-500 MG/15ML ORAL ELIXIR 8471698 HYDROCODONE-A CETAMINOPHEN Inactive ACETAMINOPHEN-CODEINE #3 300-30 MG ORAL TABLET 1 PO Q 4-6 HR PRN PAIN ACETAMINOPHEN-CODEINE #3 300-30 MG ORAL TABLET ACETAMINOPHEN-CODEINE Inactive CHERATUSSIN AC 100-10 MG/5ML ORAL SYRUP take 1 tsp po q4-6 h ours prn cough CHERATUSSIN AC 100-10 MG/5ML ORAL SYRUP 539529 GUAIFENESIN-CODEINE Inactive ACETAMINOPHEN-CODEINE #3 300-30 MG ORAL TABLET 1 tablet po q 4-6 hrs prn pain ACETAMINOPHEN-CODEINE #3 300-30 MG ORAL TABLET ACETAMINOPHEN-CODEINE Inactive HYDROCODONE-ACETAMINOPHEN 5-325 MG ORAL TABLET 1 po q 6hr PRN co ugh HYDROCODONE-ACETAMINOPHEN 5-325 MG ORAL TABLET 986856 HYDROCODONE-ACETAMINOPHEN Inactive AVELOX 400 MG ORAL TABLET 1 tab by mouth daily AVELOX 400 MG ORAL TABLET 036205 MOXIFLOXACIN HCL Inactive CHERATUSSIN AC 100-10 MG/5ML ORAL SYRUP 1 tsp by mouth every 4 hours as needed for cough CHERATUSSIN AC 100-10 MG/5ML ORAL SYRUP 9 56072 GUAIFENESIN-CODEINE Inactive TERBINAFINE HCL 250 MG ORAL TABLET 1 qDay 07/08 TERBINAFINE HCL 250 MG ORAL TABLET 479719 TERBINAFINE HCL Inactive CHERATUSSIN AC 100-10 MG/5ML ORAL SYRUP 1 tsp by mouth every 4 hours as needed for cough CHERATUSSIN AC 100-10 MG/5ML ORAL SYRUP 9 10500 GUAIFENESIN-CODEINE Inactive ACETAMINOPHEN-CODEINE #3 300-30 MG ORAL TABLET 1 PO Q 4-[address] N PAIN ACETAMINOPHEN-CODEINE #3 300-30 MG ORAL TABLET ACETAMINOPHEN-CODEINE Inactive CHERATUSSIN AC 100-10 MG/5ML ORAL SYRUP 1 tsp by mouth every 4 hours as needed for cough CHERATUSSIN AC 100-10 MG/5ML ORAL SYRUP 9 04821 GUAIFENESIN-CODEINE Inactive AUGMENTIN 875-125 MG ORAL TABLET 1 tab by mouth twice daily with food AUGMENTIN 875-125 MG ORAL TABLET 666662 AMOXICIL MADELINE-POT CLAVULANATE Inactive CHERATUSSIN AC 100-10 MG/5ML ORAL SYRUP take one tsp po Q 6h ours prn cough CHERATUSSIN AC 100-10 MG/5ML ORAL SYRUP 889147 GUAIFENESIN-CODEINE Inactive PROPRANOLOL HCL 60 MG ORAL TABLET 1 PO Q D PROPRANOLOL HCL 60 MG ORAL TABLET 268583 PROPRANOLOL HCL Inactive TOPAMAX 50 MG ORAL TABLET take 1 tab po BID for migraines. 07/02 TOPAMAX 50 MG ORAL TABLET 551562 TOPIRAMATE Inacti ve TOPAMAX 25 MG ORAL TABLET 1 qHS x 1 week, then 1 BID x 1 week, then 1 qAM and 2 qHS x 1 week, then 2 BID (migraine prevention) TOPAMAX 25 MG ORAL TABLET 928376 TOPIRAMATE Inactive LYRICA 75 MG ORAL CAPSULE TAKE 1 CAPSULE BY MOUTH TWICE DAILY LYRICA 75 MG ORAL CAPSULE PREGABALIN Inactive SYMBICORT 160-4.5 MCG/ACT INHALATION AEROSOL 2 puffs bid wit h rinse after SYMBICORT 160-4.5 MCG/ACT INHALATION AEROSOL BUDESONIDE- FORMOTEROL FUMARATE Inactive PROMETHAZINE-CODEINE 6.25-10 MG/5ML ORAL SYRUP 1 tsp b y mouth every 8 hours prn cough PROMETHAZINE-CODEINE 6.25-10 MG/ 5ML ORAL SYRUP 688369 PROMETHAZINE-CODEINE Inactive CYMBALTA 30 MG ORAL CAPSULE DELAYED RELEASE PARTICLES 1 cap by mouth daily CYMBALTA 30 MG ORAL CAPSULE DELAYED RELE ASE PARTICLES 601866 DULOXETINE HCL Inactive PREMARIN 0.625 MG ORAL TABLET TAKE 1 TAB BY MOUTH DAILY PREMARIN 0.625 MG ORAL TABLET ESTROGENS CONJUGATED Inactive CHERATUSSIN AC 100-10 MG/5ML ORAL SYRUP 1 tsp by mouth every 4 hours as needed for cough CHERATUSSIN AC 100-10 MG/5ML ORAL SYRUP 9 33647 GUAIFENESIN-CODEINE Inactive PROMETHAZINE-CODEINE 6.25-10 MG/5ML ORAL SYRUP 1 tsp b y mouth every 6 hours if needed for cough PROMETHAZINE-CODEINE 6.25-10 MG/5ML ORAL SYRUP 345691 PROMETHAZINE-CODEINE Inactive CHERATUSSIN AC 100-10 MG/5ML ORAL SYRUP 1 tsp by mouth every 4 hours as needed for cough CHERATUSSIN AC 100-10 MG/5ML ORAL SYRUP 9 41420 GUAIFENESIN-CODEINE Inactive FLUTICASONE PROPIONATE 50 MCG/ACT NASAL SUSPENSION 1 t o 2 sprays each nostril daily FLUTICASONE PROPIONATE 50 MCG/AC T NASAL SUSPENSION 9404948 FLUTICASONE PROPIONATE Inactive PREDNISONE 20 MG ORAL TABLET 3 tab PO qd x 2d, 2 tab P O qd x 2d, 1 tab PO qd x 2d, 1/2 tab PO qd x 2d PREDNISONE 20 MG ORAL TAB LET 092752 PREDNISONE Inactive LEVOFLOXACIN 500 MG ORAL TABLET 1 tab PO daily x 10 days LEVOFLOXACIN 500 MG ORAL TABLET 665110 LEVOFLOXACIN Inactive CYCLOBENZAPRINE HCL 10 MG ORAL TABLET 1 tablet by mouth BID prn had pain CYCLOBENZAPRINE HCL 10 MG ORAL TABLET 854757 CYCLOBENZAPRINE HCL Inactive ZOCOR 40 MG ORAL TABLET 1 tab by mouth daily 4 ZOCOR 40 MG ORAL TABLET 388198 SIMVASTATIN Inactive TUSSIONEX PENNKINETIC ER 10-8 MG/5ML [...] FLUTICASONE PROPIO EFE 50 MCG/ACT NASAL SUSPENSION 8363760 FLUTICASONE PROPIONATE Inactive TUSSIONEX PENNKINETIC ER 10-8 [...] ays ZITHROMAX Z-REYNA 250 MG ORAL TABLET 926725 AZITHROMYCIN Inactive CEFDINIR 300 MG ORAL CAPSULE by mouth twice a day 2010 CEFDINIR 300 MG ORAL CAPSULE 253855 CEFDINIR Inactive CEFDINIR 300 MG ORAL CAPSULE by mouth twice a day 2010 CEFDINIR 300 MG ORAL CAPSULE 449343 CEFDINIR Inactive CEFDINIR 300 MG ORAL CAPSULE by mouth twice a day 2010 CEFDINIR 300 MG ORAL CAPSULE 591232 CEFDINIR Inactive CEFDINIR 300 MG ORAL CAPSULE by mouth twice a day 2011 CEFDINIR 300 MG ORAL CAPSULE 707827 CEFDINIR Inactive ZITHROMAX 250 MG ORAL TABLET 2 po today, then 1 po q days 2-5 20 03/07/07 ZITHROMAX 250 MG ORAL TABLET 702961 AZITHROMYCIN [place] ctive CEFDINIR 300 MG ORAL CAPSULE by mouth twice a day 2011 CEFDINIR 300 MG ORAL CAPSULE 994551 CEFDINIR Inactive PREDNISONE 20 MG ORAL TABLET 2 tabs daily for 3 days, 1 tab daily for 3 days, 1/2 tab daily for 2 days PREDNISONE 20 MG ORAL T ABLET 742674 PREDNISONE Inactive AVELOX 400 MG ORAL TABLET 1 tab by mouth daily AVELOX 400 MG ORAL TABLET 036853 MOXIFLOXACIN HCL Inactive AVELOX 400 MG ORAL TABLET 1 tab by mouth daily AVELOX 400 MG ORAL TABLET 876554 MOXIFLOXACIN HCL Inactive PREDNISONE 20 MG ORAL TABLET Take 3 tabs daily for 3 d ays, 2 tabs daily for 3 days, 1 tab daily for 3 days, 1/2 tab daily for 3 days 11/07 PREDNISONE 20 MG ORAL TABLET 174920 PREDNISONE Inactive LEVAQUIN 500 MG ORAL TABLET take one po QD LEVAQUIN 500 MG ORAL TABLET 426888 LEVOFLOXACIN Inactive AZITHROMYCIN 250 MG ORAL TABLET 2 po qd x 1 day, then 1 po q d x 4 days AZITHROMYCIN 250 MG ORAL TABLET 436695 AZITHROMY GIOVANNI Inactive MEDROL 4 MG ORAL TABLET THERAPY PACK 6 tabs on day 1, 5 tabs on day 2, 4 tabs on day 3, 3 tabs on day 4, 2 tabs on day 5, 1 tab on day 6 2013 MEDROL 4 MG ORAL TABLET THERAPY PACK 112115 METHYLPREDNISOLONE [place] ctive CHERATUSSIN AC 100-10 MG/5ML ORAL SYRUP 5ml po q6hr PRN Cough 20 13/04/14 CHERATUSSIN AC 100-10 MG/5ML ORAL SYRUP 991055 GUAIFENE SIN-CODEINE Inactive TRIAMCINOLONE ACETONIDE 0.1 % EXTERNAL CREAM apply three roger es daily prn rash TRIAMCINOLONE ACETONIDE 0.1 % EXTERNAL CREAM 101 4314 TRIAMCINOLONE ACETONIDE Inactive AZITHROMYCIN 250 MG ORAL TABLET 2 po qd x 1 day, then 1 po q d x 4 days AZITHROMYCIN 250 MG ORAL TABLET 543770 AZITHROMY GIOVANNI Inactive MEDROL 4 MG ORAL TABLET THERAPY PACK 6 pills x 1 day, then 5 pills x 1 day then 4 pills x 1 day, then 3 pills x 1 day, then 2 pills x 1 day, then 1 pill x 1 day, then stop MEDROL 4 MG ORAL TABLET THERAPY PACK 267777 METHYLPREDNISOLONE Inactive AMOXICILLIN 500 MG ORAL CAPSULE 1 tab by mouth 3 times daily x 10 days AMOXICILLIN 500 MG ORAL CAPSULE 244905 AMOXICILL IN Inactive AMOXICILLIN 500 MG ORAL CAPSULE 1 tab by mouth 3 times daily x 10 days AMOXICILLIN 500 MG ORAL CAPSULE 806130 AMOXICILL IN Inactive ZITHROMAX 250 MG ORAL TABLET 2 po today, then 1 po q days 2-5 20 12/08/14 ZITHROMAX 250 MG ORAL TABLET 406079 AZITHROMYCIN [place] ctive AUGMENTIN 875-125 MG ORAL TABLET 1 po BID x 10 days 20 13/01/20 AUGMENTIN 875-125 MG ORAL TABLET 003109 AMOXICILLIN-POT CLAVULANATE Inactive ZITHROMAX Z-REYNA 250 MG ORAL TABLET 2 today, then 1 daily for 4 d ays ZITHROMAX Z-REYNA 250 MG ORAL TABLET 514954 AZITHROMYCIN Inactive ZITHROMAX 250 MG ORAL TABLET 2 po today, then 1 po q days 2-5 20 14/03/21 ZITHROMAX 250 MG ORAL TABLET 553415 AZITHROMYCIN [place] ctive ZITHROMAX Z-REYNA 250 MG ORAL TABLET 2 today, then 1 daily for 4 d ays ZITHROMAX Z-REYNA 250 MG ORAL TABLET 607977 AZITHROMYCIN Inactive CEFDINIR 300 MG ORAL CAPSULE 1 po BID x 10 days 06/21 CEFDINIR 300 MG ORAL CAPSULE 140894 CEFDINIR Inactive ZITHROMAX 250 MG ORAL TABLET 2 po today, then 1 po q days 2-5 20 13/08/10 ZITHROMAX 250 MG ORAL TABLET 385841 AZITHROMYCIN [place] ctive LEVAQUIN 500 MG ORAL TABLET 1 tablet by mouth daily 13/09/24 LEVAQUIN 500 MG ORAL TABLET 19971102 LEVOFLOXACIN Inactive SINGULAIR 10 MG ORAL TABLET 1 po qday for allergies 20 14/01/12 SINGULAIR 10 MG ORAL TABLET 20010504 MONTELUKAST SODIUM Inactive AMOXICILLIN 500 MG ORAL CAPSULE 2 po BID x 10 days 201 09/29/08 AMOXICILLIN 500 MG ORAL CAPSULE 865541 AMOXICILLIN Inactive PREDNISONE 20 MG ORAL TABLET 2 tabs daily for 3 days, 1 tab daily for 3 days, 1/2 tab daily for 2 days PREDNISONE 20 MG ORAL T ABLET 989727 PREDNISONE Inactive ZITHROMAX Z-REYNA 250 MG ORAL TABLET 2 today, then 1 daily for 4 d ays ZITHROMAX Z-REYNA 250 MG ORAL TABLET 691998 AZITHROMYCIN Inactive PREDNISONE 20 MG ORAL TABLET 2 tabs daily for 3 days, 1 tab daily for 3 days, 1/2 tab daily for 2 days PREDNISONE 20 MG ORAL T ABLET 991638 PREDNISONE Inactive ZITHROMAX 250 MG ORAL TABLET 2 po today, then 1 po q days 2-5 14/09/04 ZITHROMAX 250 MG ORAL TABLET 622681 AZITHROMYCIN [place] [facility] AMOXICILLIN 500 MG ORAL CAPSULE 1 cap by mouth three times a day AMOXICILLIN 500 MG ORAL CAPSULE 117647 AMOXICILLIN Inactive TERBINAFINE HCL 250 MG ORAL TABLET 1 qDay for nail fungus 7 TERBINAFINE HCL 250 MG ORAL TABLET 200266 TERBINAFINE HCL Inact nael Vital Signs Date [...] - Chem istry sodium, serum 132 mmol/L [phone]/07/12 potassium, serum 2.7 mmol/L 3.5-5.2 chloride, serum 93 mmol/L 98-107 carbon dioxide, venous blood 30.8 mmol/L 21.0-32 .0 blood glucose 107 mg/dL 65-110 calcium, serum 9.3 mg/dL 8.5-10.1 urea nitrogen, blood 12 mg/dL 7-18 creatinine, serum 1.00 mg/dL 0.60-1.30 sodium, serum 142 mmol/L 208-302 1171/07/17 potassium, serum 4.2 mmol/L 3.5-5.2 chloride, serum 106 mmol/L 98-107 carbon dioxide, venous blood 29.9 mmol/L 21.0-32 .0 blood glucose 108 mg/dL 65-110 calcium, serum 9.1 mg/dL 8.5-10.1 urea nitrogen, blood 11 mg/dL 7-18 creatinine, serum 0.81 mg/dL 0.60-1.30 Lab Report: Rapid Strep - Lab Microbial identification kit, rapid strep method Negative Negative Encounters Code Encounter Date Provider Facility CPT-04646 Level 3 Est. Patient 13:35:41 [employer]ANG[employer] SPECIALIST Carlton rich MD [facility] CPT-34070 Level 3 Est. Patient 10:03:52 [employer] ARRANGEMENT SPECIALIST Carlton rich MD [facility] CPT-79109 Level 3 Est. Patient 12:17:50 CDT Hugo Restrepo MD [facility] CPT-54695 Level 3 Est. Patient 13:42:38 CDT Italo [facility] CPT-93419 Level 3 Est. Patient 13:23:51 CDT Diya cobian [facility] CPT-20033 Level 3 Est. Patient 14:22:19 [employer] ARRANGEMENT SPECIALIST Diya cobian [facility] CPT-78867 Level 3 Est. Patient 10:11:46 CDT Carlton rich MD [facility] CPT-37279 Level 3 Est. Patient 17:29:43 CDT Italo [employer] [facility] CPT-36477 Level 3 Est. Patient 11:58:06 CDT Italo [facility] CPT-72885 Level 4 Est. Patient 14:36:51 CDT Carlton rich MD [facility] CPT-95909 Level 3 Est. Patient 18:16:00 [employer] ARRANGEMENT SPECIALIST Blaine HERNANDEZ [facility] CPT-96108 Level 3 Est. Patient 09:45:49 FUNERAL PRE ARRANGEMENT SPECIALIST Carlton rich MD [facility] CPT-13424 Level 3 Est. Patient 13:19:20 CDT Carlton rich MD [facility]-31965 Level 3 Est. Patient 13:06:43 CDT Ridge tam DO [facility] CPT-15929 Level 3 Est. Patient 10:03:07 CDT Perez Mora MD [facility] CPT-43112 Level 3 Est. Patient 19:50:35 [employer] ARRANGEMENT SPECIALIST Carlton rich MD [facility]-91725 Level 4 Est. Patient 18:05:01 [employer] ARRANGEMENT SPECIALIST Carlton rich MD [facility]-80629 Level 3 Est. Patient 10:45:55 [employer]ER[employer] ARRANGEMENT SPECIALIST Hugo Restrepo MD [facility]-29220 Level 3 Est. Patient 14:12:49 CDT Griffin HERNANDEZ [facility] CPT-58437 Level 3 Est. Patient 17:37:24 CDT Carlton rich MD [facility]-08404 Level 3 Est. Patient 16:51:54 CDT Carlton rich MD [facility] CPT-12116 Level 3 Est. Patient 12:18:11 CDT Hugo Restrepo MD [facility] CPT-72484 Level 3 Est. Patient 11:30:25 CDT Marcy crisostomo MD PhD [facility]-12965 Level 3 Est. Patient 12:00:47 [employer] ARRANGEMENT SPECIALIST Carlton rich MD [facility]-82348 Level 3 Est. Patient 16:31:06 [employer] ARRANGEMENT SPECIALIST Carlton rich MD [facility]-14373 Level 3 Est. Patient 16:23:24 FUNERAL [employer] ARRANGEMENT SPECIALIST Ridge tam [facility] CPT-22916 Level 3 Est. Patient 12:34:12 CDT Carlton rich MD [facility] CPT-34834 Level 2 Est. Patient 15:43:33 CDT Robi armstrong MD [facility] CPT-90178 Level 4 Est. Patient 14:04:44 CDT Carlton rich MD [facility] CPT-03147 Level 3 Est. Patient 05:47:59 CDT Ridge tam [facility] CPT-13389 Level 3 Est. Patient 13:12:53 [employer] ARRANGEMENT SPECIALIST Carlton rich MD [facility] CPT-05775 Level 3 Est. Patient 14:26:53 CDT Hugo Restrepo MD [facility] Procedures Code Procedure Name Date Entry Date Standard Desc ription CPT-J1040 Depo Medrol 80 mg (Methyl Prednisolone A cetate) 10:42:44 CDT CPT-J1100 Decadron 8mg (Dexamethasone) 10:42:44 CDT 2 CPT-J0696 Rocephin 1gm Inj Solr 14:32:13 CDT CPT-J1020 Depo Medrol 60 mg (Methyl Prednisolone A cetate) 14:32:13 CDT CPT-J1100 Decadron 6mg (Dexamethasone) 14:32:13 CDT 2 CPT-40184 Hip bilat min 2V w AP pelvis 13:16:20 CDT 2 CPT-11735 Pelvis only 13:07:33 CDT CPT-30998 Spec Collection and Handling Fee 11:25:12 C DT CPT-69861 Fluzone Quadrivalent Intramuscular Suspe nsion 0.5 ML 14:31:55 CDT CPT-35445 Abx/Therapy Injection 13:28:47 [employer] ARRANGEMENT SPECIALIST CPT-J2930 Solu Medrol 125 mg (Methyl Prednisolone Sodium Succinate) 12:00:47 [employer] ARRANGEMENT SPECIALIST CPT-08484 Venipuncture Draw Fee 11:33:31 CDT CPT-97075 EKG Trac and Interp 11:21:09 CDT CPT-15821 Chest 2V Frontal and Lat 11:21:09 CDT 12/15 CPT-29456 Venipuncture Draw Fee 08:02:34 CDT CPT-18820 Chest 2V Frontal and Lat 05:47:59 CDT 06/05
--- OUTSIDE RECORDS SUMMARY | 2019-10-08 08:16 | XMS REPORT | Clinical Summary ---
Author Author Caitlin, Juliana Martinez Organization [facility] Address Unknown Phone Unavailable Allergies, Adverse [...] for nail fungus 201 10/08/16 TERBINAFINE HCL 87461073914 Active Carlton Hu MD Activ e TUSSIONEX PENNKINETIC ER 10-8 MG/5ML LQCR 5ml po q12hr PRN Cough 20 14/02/07 HYDROCOD POLST-CHLORPHEN POLST 93382431006 Active Carlton Hu MD Active PREDNISONE 20 MG TAB 1 tab twice daily for 3 day, then one d aily for three days PREDNISONE 15379053098 Active Carlton Hu MD Active AMOXICILLIN 500 MG CAPS 1 cap by mouth three times a day AMOXICILLIN 67116943309 Active Carlton Hu MD Active ELMIRON 100 MG CAPS 2 tablets in the am and 1 tablet at hs 04/24 PENTOSAN POLYSULFATE SODIUM 50950591039 No Longer Active Carlton loera MD Active MUCINEX D 60-600 MG [id number] 1 tab po q am PSEUDOEPHEDRINE-GUAIFENESIN 77691370855 No Longer Active Carlton Hu MD Active MUCINEX DM MAXIMUM STRENGTH 60-1200 MG [id number] 1 tab po q am DEXTROMETHORPHAN-GUAIFENESIN 30479795659 No Longer Active Da raimundo Hu MD Active TUSSIONEX PENNKINETIC ER 10-8 MG/5ML LQCR 5ml po q12hr PRN Cough HYDROCOD POLST-CHLORPHEN POLST 22204814289 No Longer Active Carlton Hu MD Active POTASSIUM CHLORIDE ER 20 MEQ ORAL CR-TABS Take 1 by mo uth 4 times daily for 7 days POTASSIUM CHLORIDE 57123511162 No Longer Active Carlton Hu MD Active ZITHROMAX 250 MG TAB 2 po today, then 1 po q days 2-5 AZITHROMYCIN 83136210838 No Longer Active Elise Whitmore APRN Acti ve TUSSIONEX PENNKINETIC ER 10-8 MG/5ML LQCR 5 ml twice a day a s needed for cough HYDROCOD POLST-CHLORPHEN POLST 18285715864 N o Longer Active Elise Whitmore APRN Active MONTELUKAST SODIUM 10 MG ORAL TABS 1 po daily for Allergy 6 MONTELUKAST SODIUM 30669968874 Active Carlton Hu MD Ac tive TUSSIONEX PENNKINETIC ER 10-8 MG/5ML LQCR 5ml po q12hr PRN Cough HYDROCOD POLST-CHLORPHEN POLST 48374140843 No Longer Active Hugo Restrepo MD Active GABAPENTIN 100 MG CAPS 1 po BID for fibromyalgia GABAPENTIN 64004513821 Active Elise Whitmore APRN Active LYRICA 100 MG CAPS Take 1 tab po BID for fibromyalgia PREGABALIN 00600287212 No Longer Active Elise Whitmore APRN Acti ve PROAIR HFA 108 (90 BASE) MCG/ACT AERS 2 puffs four times a d ay as needed ALBUTEROL SULFATE 66292865566 Active Elise Whitmore APRN Active PREDNISONE 20 MG TAB 2 tabs daily for 3 days, 1 t ab daily for 3 days, 1/2 tab daily for 2 days PREDNISONE 05530295671 No Longer Active Jillina Frakerriel RECYCLING MANAGER Active TUSSIONEX PENNKINETIC ER 10-8 MG/5ML ORAL LQCR 5 mL PO q 12 hrs PRN cough HYDROCOD POLST-CHLORPHEN POLST 66585913668 No Longer Active Jillina Frazell RECYCLING MANAGER Active FLUTICASONE PROPIONATE 50 MCG/ACT SUSP 2 sprays each n ostril daily until bottle is empty FLUTICASONE PROPIONATE 06501138711 No Longer Ac tive Jillina Frazell RECYCLING MANAGER Active ASMANEX 60 METERED DOSES 220 MCG/INH AEPB 1 puff bid with ri nse after MOMETASONE FUROATE 21732850488 No Longer Active Venullina Darlin meneses RECYCLING MANAGER Active ZITHROMAX Z-REYNA 250 MG TABS 2 today, then 1 daily for 4 days 201 09/29/14 AZITHROMYCIN 77909351952 No Longer Active Elise Whitmore APRN Active TUSSIONEX PENNKINETIC ER 10-8 MG/5ML LQCR 5ml po q12hr PRN Cough HYDROCOD POLST-CHLORPHEN POLST 97675234502 No Longer Active Elise Whitmore APRN Active PREDNISONE 20 MG TAB 2 tabs daily for 3 days, 1 t ab daily for 3 days, 1/2 tab daily for 2 days PREDNISONE 64094390761 No Longer Active Jiseemaina Cesarl RECYCLING MANAGER Active AMOXICILLIN 500 MG CAPS 2 po BID x 10 days AMOX ICILLIN 94195144284 No Longer Active Jillina Frazell RECYCLING MANAGER Active SINGULAIR 10 MG TABS 1 po qday for allergies 2 MONTELUKAST SODIUM 13611955650 No Longer Active Carlton Hu MD Acti ve LEVAQUIN 500 MG TAB 1 tablet by mouth daily LEV OFLOXACIN 55271806829 No Longer Active Carlton Hu MD Active FLUTICASONE PROPIONATE 50 MCG/ACT SUSP 2 sprays each n ostril daily for 2 weeks, then 1 spray each nostril daily. FLUTICASONE PRO PIONATE 08640050240 Active Elise Whitmore APRN Active ZITHROMAX 250 MG TAB 2 po today, then 1 po q days 2-5 AZITHROMYCIN 97136069785 No Longer Active Elise Whitmore APRN Acti ve XANAX 0.5 MG TABS one tablet by mouth daily prn anxiety ALPRAZOLAM 58756520277 Active Carlton Hu MD Active CYMBALTA 30 MG CPEP 1 cap by mouth daily for depression DULOXETINE HCL 79762309771 Active Carlton Hu MD Active CEFDINIR 300 MG CAPS 1 po BID x 10 days CEFDINI R 49659551015 No Longer Active Carlton Hu MD Active ZOCOR 40 MG TAB 1 tab by mouth daily SIMVASTATI N 46417393174 No Longer Active Carlton Hu MD Active CYCLOBENZAPRINE HCL 10 MG TABS 1 tablet by mouth BID prn had cherelle n CYCLOBENZAPRINE HCL 10572266369 No Longer Active Carlton Hu MD Active LEVOFLOXACIN 500 MG ORAL TABS 1 tab PO daily x 10 days LEVOFLOXACIN 24335570313 No Longer Active Carlton Hu MD Acti ve PREDNISONE 20 MG ORAL TABS 3 tab PO qd x 2d, 2 tab PO qd x 2d, 1 tab PO qd x 2d, 1/2 tab PO qd x 2d PREDNISONE 81747581505 No Longer Active Carlton Hu MD Active FLUTICASONE PROPIONATE 50 MCG/ACT SUSP 1 to 2 sprays each no stril daily FLUTICASONE PROPIONATE 44560286336 No Longer Active T jaz HERNANDEZ Active CHERATUSSIN AC 100-10 MG/5ML SYRP 1 tsp by mouth every 4 hours as needed for cough GUAIFENESIN-CODEINE 13995523432 No Longer Activ e Blaine HERNANDEZ Active PROMETHAZINE-CODEINE 6.25-10 MG/5ML SYRP 1 tsp by mout h every 6 hours if needed for cough PROMETHAZINE-CODEINE 16217832609 No Long er Active Blaine HERNANDEZ Active CHERATUSSIN AC 100-10 MG/5ML SYRP 1 tsp by mouth every 4 hours as needed for cough GUAIFENESIN-CODEINE 34436776189 No Longer Activ e Blaine HERNANDEZ Active ZITHROMAX Z-REYNA 250 MG TABS 2 today, then 1 daily for 4 days 201 08/30/03 AZITHROMYCIN 41028161161 No Longer Active Columba Raida Act nael ZITHROMAX 250 MG TAB 2 po today, then 1 po q days 2-5 AZITHROMYCIN 56420755195 No Longer Active Carlton Hu MD Acti ve ZITHROMAX Z-REYNA 250 MG TABS 2 today, then 1 daily for 4 days 201 08/07/20 AZITHROMYCIN 84801576497 No Longer Active Columba Raida Act nael AUGMENTIN 875-125 MG TAB 1 po BID x 10 days AMOXICILLIN- POT CLAVULANATE 35275109683 No Longer Active Diya De Guzman APRN Active ZITHROMAX 250 MG TAB 2 po today, then 1 po q days 2-5 AZITHROMYCIN 69641180742 No Longer Active Carlton Hu MD [facility] hall TRAMADOL HCL 50 MG TABS 1 po tid with ES Tylenol TRAMADOL HCL 34315324481 Active Carlton Hu MD Active PREMARIN 0.625 MG TABS TAKE 1 TAB BY MOUTH DAILY 07/25 ESTROGENS CONJUGATED 45852106814 No Longer Active Ridge Bess DO Active CYMBALTA 30 MG CPEP 1 cap by mouth daily DULOXE SNEHA HCL 13017828257 No Longer Active Ridge Bess DO Active AMOXICILLIN 500 MG CAP 1 tab by mouth 3 times daily x 10 days 20 14/04/28 AMOXICILLIN 93113125173 No Longer Active Carlton Hu MD Active AMOXICILLIN 500 MG CAP 1 tab by mouth 3 times daily x 10 days 20 13/03/08 AMOXICILLIN 63998826646 No Longer Active Carlton Hu MD Active PROMETHAZINE-CODEINE 6.25-10 MG/5ML SYRP 1 tsp by mouth ever y 8 hours prn cough PROMETHAZINE-CODEINE 28899329884 No Longer Active Robert Hu MD Active MEDROL (REYNA) 4 MG TABS 6 pills x 1 day, then 5 pill s x 1 day then 4 pills x 1 day, then 3 pills x 1 day, then 2 pills x 1 day, then 1 pill x 1 day, then stop METHYLPREDNISOLONE 95606849654 No Longer Active Parris Mora MD Active AZITHROMYCIN 250 MG TABS 2 po qd x 1 day, then 1 po qd x 4 days AZITHROMYCIN 03990715527 No Longer Active Perez Mora MD Active SYMBICORT 160-4.5 MCG/ACT AERO 2 puffs bid with rinse after 2011 BUDESONIDE-FORMOTEROL FUMARATE 04395745295 No Longer Active Perez Mora MD Active LYRICA 75 MG CAPS TAKE 1 CAPSULE BY MOUTH TWICE DAILY 2013 PREGABALIN 00880630738 No Longer Active Carlton Hu MD Active TOPAMAX 25 MG TABS 1 qHS x 1 week, then 1 BID x 1 week, then 1 qAM and 2 qHS x 1 week, then 2 BID (migraine prevention) TOPIRAMAT E 24183332529 No Longer Active Jerica Osei JEFFA Active TOPAMAX 50 MG TABS take 1 tab po BID for migraines. 12/07/10 TOPIRAMATE 31665754030 No Longer Active Jerica Osei RMA Ac tive TOPAMAX 100 MG TABS Take 1 tablet po bid TOPIRAMATE 4999 2493120 Active Carlton Hu MD Active TRIAMCINOLONE ACETONIDE 0.1 % CREA apply three times daily prn r beatrice TRIAMCINOLONE ACETONIDE 53481141860 No Longer Active Carlton Hu MD Active PAXIL 40 MG TAB take 1 tab po qday for depression PAROXETINE HCL 17241402900 Active Carlton Hu MD Active CHERATUSSIN AC 100-10 MG/5ML SYRP 5ml po q6hr PRN Cough GUAIFENESIN-CODEINE 28354459034 No Longer Active Carlton Hu MD Active MEDROL (REYNA) 4 MG TABS 6 tabs on day 1, 5 tabs on d ay 2, 4 tabs on day 3, 3 tabs on day 4, 2 tabs on day 5, 1 tab on day 6 METHYLPREDNISOLONE 41853981588 No Longer Active Perez Mora MD Active AZITHROMYCIN 250 MG TABS 2 po qd x 1 day, then 1 po qd x 4 days AZITHROMYCIN 03564595146 No Longer Active Perez Mora MD Active PROPRANOLOL HCL 60 MG TABS 1 PO Q D PROPRANOL OL HCL 47535489180 No Longer Active Perez Mora MD Active CHERATUSSIN AC 100-10 MG/5ML SYRP take one tsp po Q 6hours prn c ough GUAIFENESIN-CODEINE 58482190026 No Longer Active Perez Means Active AUGMENTIN 875-125 MG TAB 1 tab by mouth twice daily with food 20 12/03/31 AMOXICILLIN-POT CLAVULANATE 02716482560 No Longer Active Chanel Mora MD Active CHERATUSSIN AC 100-10 MG/5ML SYRP 1 tsp by mouth every 4 hours as needed for cough GUAIFENESIN-CODEINE 29963576120 No Longer Activ e Hugo Restrepo MD Active ACETAMINOPHEN-CODEINE #3 300-30 MG TABS 1 PO Q 4-6 HRS PRN PAIN ACETAMINOPHEN-CODEINE 71300644130 No Longer Active Hugo Restrepo MD Active LEVAQUIN 500 MG TABS take one po QD LEVOFLOXACI N 74546396262 No Longer Active Griffin HERNANDEZ Active PREDNISONE 20 MG TAB Take 3 tabs daily for 3 days , 2 tabs daily for 3 days, 1 tab daily for 3 days, 1/2 tab daily for 3 days P REDNISONE 82884536385 No Longer Active Carlton Hu MD Active AVELOX 400 MG TABS 1 tab by mouth daily MOXIFLO XACIN HCL 70685559216 No Longer Active Carlton Hu MD Active CHERATUSSIN AC 100-10 MG/5ML SYRP 1 tsp by mouth every 4 hours as needed for cough GUAIFENESIN-CODEINE 72124981743 No Longer Activ e Hugo Restrepo MD Active AVELOX 400 MG TABS 1 tab by mouth daily MOXIFLO XACIN HCL 19670061847 No Longer Active Marcy De La Rosa MD PhD Active TERBINAFINE HCL 250 MG TABS 1 qDay TERBINAF INE HCL 63079914975 No Longer Active Marcy De La Rosa MD PhD Active CHERATUSSIN AC 100-10 MG/5ML SYRP 1 tsp by mouth every 4 hours as needed for cough GUAIFENESIN-CODEINE 29888279965 No Longer Activ e Marcy De La Rosa MD PhD Active AVELOX 400 MG TABS 1 tab by mouth daily MOXIFLO XACIN HCL 40212106016 No Longer Active Marcy De La Rosa MD PhD Active HYDROCODONE-ACETAMINOPHEN 5-325 MG TABS 1 po q 6hr PRN cough 201 05/09/16 HYDROCODONE-ACETAMINOPHEN 09452555398 No Longer Active Marcy De La Rosa MD PhD Active PREDNISONE 20 MG TAB 2 tabs daily for 3 days, 1 t ab daily for 3 days, 1/2 tab daily for 2 days PREDNISONE 71718944881 No Longer Active Carlton Hu MD Active CEFDINIR 300 MG CAPS by mouth twice a day CEFDI ODILIA 42297448140 No Longer Active Carlton Hu MD Active HYDROCHLOROTHIAZIDE 25 MG TABS 1 TAB PO DAILY H YDROCHLOROTHIAZIDE 22561773871 Active Carlton Hu MD Active ACETAMINOPHEN-CODEINE #3 300-30 MG TABS 1 tablet po q 4-6hrs prn pain ACETAMINOPHEN-CODEINE 56325714739 No Longer Active Ridge Bess DO Active ZITHROMAX 250 MG TAB 2 po today, then 1 po q days 2-5 AZITHROMYCIN 52077675266 No Longer Active Carlton Hu MD Acti ve CHERATUSSIN AC 100-10 MG/5ML SYRP take 1 tsp po q4-6 hours prn c ough GUAIFENESIN-CODEINE 73202871728 No Longer Active Carlton Hu MD Active ACETAMINOPHEN-CODEINE #3 300-30 MG TABS 1 PO Q 4-6 HR PRN PAIN 2 ACETAMINOPHEN-CODEINE 04845567536 No Longer Active Carlton rich MD Active LORTAB 7.5-500 MG/15ML ELIX 7.5 ml po q 4 hour prn cough HYDROCODONE-ACETAMINOPHEN 58849445461 No Longer Active Carlton Hu MD Active PREDNISONE 20 MG TAB 1 po bid 3 days, then 1 po q day 3 days 201 05/03/07 PREDNISONE 59276229323 No Longer Active Carlton Hu MD Active CEFDINIR 300 MG CAPS by mouth twice a day CEFDI ODILIA 71731106403 No Longer Active Carlton Hu MD Active CEFDINIR 300 MG CAPS by mouth twice a day CEFDI ODILIA 70289703425 No Longer Active Carlton Hu MD Active CEFDINIR 300 MG CAPS by mouth twice a day CEFDI ODILIA 47410333749 No Longer Active Carlton Hu MD Active TESSALON PERLES 100 MG CAP 1 tablet by mouth 3 times daily a s needed for cough BENZONATATE 23012626421 No Longer Active Carlton bustamante MD Active CEFDINIR 300 MG CAPS by mouth twice a day CEFDI ODILIA 92593420535 No Longer Active Carlton Hu MD Active ZITHROMAX Z-REYNA 250 MG TABS 2 today, then 1 daily for 4 days 201 04/09/17 AZITHROMYCIN 67324763202 No Longer Active Hugo Restrepo MD Active AMOXICILLIN 500 MG CAP 1 tab by mouth 3 times daily x 10 days 20 13/03/08 AMOXICILLIN 500 MG CAP 372060 AMOXICILLIN Inactive AMOXICILLIN 500 MG CAP 1 tab by mouth 3 times daily x 10 days 20 14/04/28 AMOXICILLIN 500 MG CAP 735204 AMOXICILLIN Inactive AMOXICILLIN 500 MG CAPS 2 po BID x 10 days AMOXICILLIN 500 MG CAPS 527103 AMOXICILLIN Inactive CHERATUSSIN AC 100-10 MG/5ML SYRP 5ml po q6hr PRN Cough CHERATUSSIN AC 100-10 MG/5ML SYRP 834624 GUAIFENESIN-CODEINE Inacti ve CHERATUSSIN AC 100-10 MG/5ML SYRP take 1 tsp po q4-6 hours prn c ough CHERATUSSIN AC 100-10 MG/5ML SYRP 841115 GUAIFENESIN-CO DEINE Inactive CHERATUSSIN AC 100-10 MG/5ML SYRP 1 tsp by mouth every 4 hours as needed for cough CHERATUSSIN AC 100-10 MG/5ML SYRP 649873 GUAIFENESIN-CODEINE Inactive CHERATUSSIN AC 100-10 MG/5ML SYRP 1 tsp by mouth every 4 hours as needed for cough CHERATUSSIN AC 100-10 MG/5ML SYRP 551353 GUAIFENESIN-CODEINE Inactive CHERATUSSIN AC 100-10 MG/5ML SYRP 1 tsp by mouth every 4 hours as needed for cough CHERATUSSIN AC 100-10 MG/5ML SYRP 168709 GUAIFENESIN-CODEINE Inactive CHERATUSSIN AC 100-10 MG/5ML SYRP take one tsp po Q 6hours prn c ough CHERATUSSIN AC 100-10 MG/5ML SYRP 741518 GUAIFENESIN-CO DEINE Inactive CHERATUSSIN AC 100-10 MG/5ML SYRP 1 tsp by mouth every 4 hours as needed for cough CHERATUSSIN AC 100-10 MG/5ML SYRP 381453 GUAIFENESIN-CODEINE Inactive CHERATUSSIN AC 100-10 MG/5ML SYRP 1 tsp by mouth every 4 hours as needed for cough CHERATUSSIN AC 100-10 MG/5ML SYRP 752232 GUAIFENESIN-CODEINE Inactive CYCLOBENZAPRINE HCL 10 MG TABS 1 tablet by mouth BID prn had cherelle n CYCLOBENZAPRINE HCL 10 MG TABS 969901 CYCLOBENZAPRINE H CL Inactive PREDNISONE 20 MG ORAL TABS 3 tab PO qd x 2d, 2 tab PO qd x 2d, 1 tab PO qd x 2d, 1/2 tab PO qd x 2d PREDNISONE 20 MG ORAL TABS 804242 PREDNISONE Inactive PREDNISONE 20 MG TAB 1 po bid 3 days, then 1 po q day 3 days 201 05/03/07 PREDNISONE 20 MG TAB 225968 PREDNISONE Inactive PREDNISONE 20 MG TAB Take 3 tabs daily for 3 days , 2 tabs daily for 3 days, 1 tab daily for 3 days, 1/2 tab daily for 3 days PREDNISONE 20 MG TAB 026388 PREDNISONE Inactive PREDNISONE 20 MG TAB 2 tabs daily for 3 days, 1 t ab daily for 3 days, 1/2 tab daily for 2 days PREDNISONE 20 MG TAB 302365 PREDNISON E Inactive PREDNISONE 20 MG TAB 2 tabs daily for 3 days, 1 t ab daily for 3 days, 1/2 tab daily for 2 days PREDNISONE 20 MG TAB 999970 PREDNISON E Inactive PREDNISONE 20 MG TAB 2 tabs daily for 3 days, 1 t ab daily for 3 days, 1/2 tab daily for 2 days PREDNISONE 20 MG TAB 357670 PREDNISON E Inactive PREMARIN 0.625 MG TABS TAKE 1 TAB BY MOUTH DAILY 07/25 PREMARIN 0.625 MG TABS ESTROGENS CONJUGATED Inactive PROMETHAZINE-CODEINE 6.25-10 MG/5ML SYRP 1 tsp by mouth ever y 8 hours prn cough PROMETHAZINE-CODEINE 6.25-10 MG/5ML SYRP 130891 PROMETHAZINE-CODEINE Inactive PROMETHAZINE-CODEINE 6.25-10 MG/5ML SYRP 1 tsp by mout h every 6 hours if needed for cough PROMETHAZINE-CODEINE 6.25-10 MG/5ML SYRP 726523 PROMETHAZINE-CODEINE Inactive PROPRANOLOL HCL 60 MG TABS 1 PO Q D P ROPRANOLOL HCL 60 MG TABS 183439 PROPRANOLOL HCL Inactive TRIAMCINOLONE ACETONIDE 0.1 % CREA apply three times daily prn r beatrice TRIAMCINOLONE ACETONIDE 0.1 % CREA 5438957 TRIAMCINOLONE ACETONIDE Inactive ZOCOR 40 MG TAB 1 tab by mouth daily ZOCOR 40 M G TAB 712699 SIMVASTATIN Inactive TESSALON PERLES 100 MG CAP 1 tablet by mouth 3 times daily a s needed for cough TESSALON PERLES 100 MG CAP 832529 BENZONATATE I nactive TERBINAFINE HCL 250 MG TABS 1 qDay TERBINAFINE HCL 250 MG TABS 184730 TERBINAFINE HCL Inactive ACETAMINOPHEN-CODEINE #3 300-30 MG [...] food 20 12/03/31 AUGMENTIN 875-125 MG TAB 702832 AMOXICILLIN-POT CLAVULA EFE Inactive AUGMENTIN 875-125 MG TAB 1 po BID x 10 days AUGMENTIN 875- 125 MG TAB 909145 AMOXICILLIN-POT CLAVULANATE Inactive ELMIRON 100 MG CAPS [...] 10 days LEVOFLOXACIN 500 MG ORAL TABS 299638 LEVOFLOXACIN Inactive ZITHROMAX 250 MG TAB 2 po today, then 1 po q days 2-5 ZITHROMAX 250 MG TAB 210358 AZITHROMYCIN Inactive ZITHROMAX 250 MG TAB 2 po today, then 1 po q days 2-5 ZITHROMAX 250 MG TAB 922510 AZITHROMYCIN Inactive ZITHROMAX 250 MG TAB 2 po today, then 1 po q days 2-5 ZITHROMAX 250 MG TAB 729459 AZITHROMYCIN Inactive ZITHROMAX 250 MG TAB 2 po today, then 1 po q days 2-5 ZITHROMAX 250 MG TAB 303148 AZITHROMYCIN Inactive ZITHROMAX 250 MG TAB 2 po today, then 1 po q days 2-5 ZITHROMAX 250 MG TAB 647444 AZITHROMYCIN Inactive AZITHROMYCIN 250 MG TABS 2 po qd x 1 day, then 1 po qd x 4 days AZITHROMYCIN 250 MG TABS 156891 AZITHROMYCIN Inactiv e AZITHROMYCIN 250 MG TABS 2 po qd x 1 day, then 1 po qd x 4 days AZITHROMYCIN 250 MG TABS 866105 AZITHROMYCIN Inactiv e CEFDINIR 300 MG CAPS [...] mouth daily A VELOX 400 MG TABS 096083 MOXIFLOXACIN HCL Inactive AVELOX 400 MG TABS 1 tab by mouth daily A VELOX 400 MG TABS 003270 MOXIFLOXACIN HCL Inactive AVELOX 400 MG TABS 1 tab by mouth daily A VELOX 400 MG TABS 891667 MOXIFLOXACIN HCL Inactive ZITHROMAX Z-REYNA 250 MG TABS 2 today, then 1 daily for 4 days 201 08/30/03 ZITHROMAX Z-REYNA 250 MG TABS 837275 AZITHROMYCIN Inac tive ZITHROMAX Z-REYNA 250 MG TABS 2 today, then 1 daily for 4 days 201 08/07/20 ZITHROMAX Z-REYNA 250 MG TABS 474556 AZITHROMYCIN Inac tive ZITHROMAX Z-REYNA 250 MG TABS 2 today, then 1 daily for 4 days 201 04/09/17 ZITHROMAX Z-REYNA 250 MG TABS 546658 AZITHROMYCIN Inac tive ZITHROMAX Z-REYNA 250 MG TABS 2 today, then 1 daily for 4 days 201 09/29/14 ZITHROMAX Z-REYNA 250 MG TABS 958851 AZITHROMYCIN Inac tive HYDROCODONE-ACETAMINOPHEN 5-325 MG TABS 1 po q 6hr PRN cough 201 05/09/16 HYDROCODONE-ACETAMINOPHEN 5-325 MG TABS 992699 HYDROCODONE-ACETAMINOPHEN Inactive TOPAMAX 50 MG TABS take 1 tab po BID for migraines. 20 12/07/10 TOPAMAX 50 MG TABS 333379 TOPIRAMATE Inactive LORTAB 7.5-500 MG/15ML ELIX 7.5 ml po q 4 hour prn cough LORTAB 7.5-500 MG/15ML ELIX 2228990 HYDROCODONE-ACETAMINOPHEN Inacti ve CYMBALTA 30 MG CPEP 1 cap by mouth daily CYMBALTA 30 MG CPEP 438047 DULOXETINE HCL Inactive ASMANEX 60 METERED DOSES [...] CAPS PREGABALIN Inactive MUCINEX D 60-600 MG [id number] 1 tab po q am MUCINEX D 60- 600 MG [id number] PSEUDOEPHEDRINE-GUAIFENESIN Inactive FLUTICASONE PROPIONATE 50 MCG/ACT SUSP 2 sprays each n ostril daily until bottle is empty FLUTICASONE PROPIONATE 50 MCG/ACT SUSP 17 86622 FLUTICASONE PROPIONATE Inactive FLUTICASONE PROPIONATE 50 MCG/ACT SUSP 1 to 2 sprays each no stril daily FLUTICASONE PROPIONATE 50 MCG/ACT SUSP 2480937 FLUTICASONE PROPIONATE Inactive SYMBICORT 160-4.5 MCG/ACT AERO 2 puffs bid with rinse after 2011 SYMBICORT 160-4.5 MCG/ACT AERO BUDESONIDE-FORMOT SÁNCHEZ FUMARATE Inactive MUCINEX DM MAXIMUM STRENGTH 60-1200 MG [id number] 1 tab po q am MUCINEX DM MAXIMUM STRENGTH 60-1200 MG [id number] DEXTROMETHORPHAN-GUAIFENESIN Inactive POTASSIUM CHLORIDE ER 20 MEQ [...] then stop MEDROL (REYNA) 4 MG TABS 160745 METHYLPREDNISOLONE Inactive MEDROL (REYNA) 4 MG TABS 6 tabs on day 1, 5 tabs on d ay 2, 4 tabs on day 3, 3 tabs on day 4, 2 tabs on day 5, 1 tab on day 6 MEDROL (REYNA) 4 MG TABS 552461 METHYLPREDNISOLONE Inactive TUSSIONEX PENNKINETIC ER 10-8 MG/5ML [...] - Chem istry sodium, serum 132 mmol/L 564-234 5920/07/12 potassium, serum 2.7 mmol/L 3.5-5.2 chloride, serum 93 mmol/L 98-107 carbon dioxide, venous blood 30.8 mmol/L 21.0-32 .0 blood glucose 107 mg/dL 65-110 calcium, serum 9.3 mg/dL 8.5-10.1 urea nitrogen, blood 12 mg/dL 7-18 creatinine, serum 1.00 mg/dL 0.60-1.30 sodium, serum 142 mmol/L 755-843 6064/07/17 potassium, serum 4.2 mmol/L 3.5-5.2 chloride, serum 106 mmol/L 98-107 carbon dioxide, venous blood 29.9 mmol/L 21.0-32 .0 blood glucose 108 mg/dL 65-110 calcium, serum 9.1 mg/dL 8.5-10.1 urea nitrogen, blood 11 mg/dL 7-18 creatinine, serum 0.81 mg/dL 0.60-1.30 Lab Report: Rapid Strep - Lab Microbial identification kit, rapid strep method Negative Negative Encounters Code Encounter Date Provider Facility CPT-08610 Level 3 Est. Patient 13:35:41 SERVICE WRITER ADVISOR Carlton rich MD [facility] CPT-86362 Level 3 Est. Patient 10:03:52 SERVICE WRITER ADVISOR Carlton rich MD [facility] CPT-46504 Level 3 Est. Patient 12:17:50 CDT Hugo Restrepo MD [facility] CPT-03003 Level 3 Est. Patient 13:42:38 CDT Italo KHAN [facility] CPT-73878 Level 3 Est. Patient 13:23:51 CDT Diya Mariana cobian [facility] CPT-08000 Level 3 Est. Patient 14:22:19 SERVICE WRITER ADVISOR Diya Mariana cobian [facility] CPT-83579 Level 3 Est. Patient 10:11:46 CDT Carlton rich MD [facility] CPT-15997 Level 3 Est. Patient 17:29:43 CDT Elise Cesar vyason [facility] CPT-84015 Level 3 Est. Patient 11:58:06 CDT Elise And erson [facility] CPT-79798 Level 4 Est. Patient 14:36:51 CDT Carlton rich MD [facility] [place]-[id number] Level 3 Est. Patient 18:16:00 SERVICE WRITER ADVISOR Blaine Freeman [facility] CPT-27567 Level 3 Est. Patient 09:45:49 SERVICE WRITER ADVISOR Carlton rich MD [facility] CPT-83926 Level 3 Est. Patient 13:19:20 CDT Carlton rich MD [facility] CPT-44294 Level 3 Est. Patient 13:06:43 CDT Ridge tam DO [facility] CPT-84987 Level 3 Est. Patient 10:03:07 CDT Perez Mora MD [facility] CPT-32227 Level 3 Est. Patient 19:50:35 SERVICE WRITER ADVISOR Carlton rich MD [facility] CPT-20539 Level 4 Est. Patient 18:05:01 SERVICE WRITER ADVISOR Carlton rich MD [facility]-41766 Level 3 Est. Patient 10:45:55 SERVICE WRITER ADVISOR Hugo Restrepo MD [facility] CPT-39110 Level 3 Est. Patient 14:12:49 CDT Griffin lincoln [facility] CPT-45650 Level 3 Est. Patient 17:37:24 CDT Carlton rich MD [facility] CPT-65756 Level 3 Est. Patient 16:51:54 CDT Carlton rich MD [facility] CPT-39169 Level 3 Est. Patient 12:18:11 CDT Hugo Restrepo MD [facility] CPT-25015 Level 3 Est. Patient 11:30:25 CDT Marcy crisostomo MD PhD [facility] CPT-06347 Level 3 Est. Patient 12:00:47 SERVICE WRITER ADVISOR Carlton rich MD [facility] CPT-21095 Level 3 Est. Patient 16:31:06 SERVICE WRITER ADVISOR Carlton rich MD [facility] CPT-13879 Level 3 Est. Patient 16:23:24 SERVICE WRITER ADVISOR Ridge tam [facility] CPT-45364 Level 3 Est. Patient 12:34:12 CDT Carlton rich MD [facility] CPT-13971 Level 2 Est. Patient 15:43:33 CDT Robi armstrong MD [facility] CPT-99911 Level 4 Est. Patient 14:04:44 CDT Carlton rich MD [facility] CPT-19245 Level 3 Est. Patient 05:47:59 CDT [place] tam [facility] CPT-07542 Level 3 Est. 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 Patient 14:26:53 CDT Hugo [...] CPT-J1100 Decadron 6mg (Dexamethasone) 14:32:13 CDT 2 CPT-11755 Hip bilat min 2V w AP pelvis 13:16:20 CDT 2 CPT-64822 Pelvis only 13:07:33 CDT CPT-67009 Spec Collection and Handling Fee 11:25:12 C DT CPT-18187 Fluzone Quadrivalent Intramuscular Suspe nsion 0.5 ML 14:31:55 CDT CPT-51147 Abx/Therapy Injection 13:28:47 SERVICE WRITER ADVISOR CPT-J2930 Solu Medrol 125 mg (Methyl Prednisolone Sodium Succinate) 12:00:47 SERVICE WRITER ADVISOR CPT-37272 Venipuncture Draw Fee 11:33:31 CDT CPT-16760 EKG Trac and Interp 11:21:09 CDT CPT-61433 Chest 2V Frontal and Lat 11:21:09 CDT 12/15 CPT-29534 Venipuncture Draw Fee 08:02:34 CDT CPT-52348 Chest 2V Frontal and Lat 05:47:59 CDT 06/05
--- OUTSIDE RECORDS SUMMARY | 2019-10-08 08:16 | XMS REPORT | Clinical Summary ---
Author Author Caitlin, Juliana Martinez Organization [facility] Address Unknown Phone Unavailable Allergies, Adverse [...] subpopulat ions Hip pain, left [address] Bess DO Pain in joint involving pelvic [...] PRN Cough 20 14/09/04 HYDROCOD POLST-CHLORPHEN POLST 36698452361 Active Elise Whitmore APRN Active ZITHROMAX 250 MG TAB 2 po today, then 1 po q days 2-5 AZITHROMYCIN 45924481406 No Longer Active Elise Whitmore APRN Acti ve TUSSIONEX PENNKINETIC ER 10-8 MG/5ML LQCR 5 ml twice a day a s needed for cough HYDROCOD POLST-CHLORPHEN POLST 97641006952 N o Longer Active Elise Whitmore APRN Active MONTELUKAST SODIUM 10 MG ORAL TABS 1 po daily for Allergy 6 MONTELUKAST SODIUM 52795202699 Active ALFREDO Holly Act nael TUSSIONEX PENNKINETIC ER 10-8 MG/5ML LQCR 5ml po q12hr PRN Cough HYDROCOD POLST-CHLORPHEN POLST 16479876341 No Longer Active Hugo Restrepo MD Active GABAPENTIN 100 MG CAPS 1 po BID for fibromyalgia GABAPENTIN 90372522366 Active Elise Whitmore APRN Active LYRICA 100 MG CAPS Take 1 tab po BID for fibromyalgia PREGABALIN 11158344263 No Longer Active Elise Whitmore APRN Acti ve PROAIR HFA 108 (90 BASE) MCG/ACT AERS 2 puffs four times a d ay as needed ALBUTEROL SULFATE 65163061401 Active Elise Whitmore APRN Active MUCINEX DM MAXIMUM STRENGTH 60-1200 MG [id number] 1 tab po q am 2016 DEXTROMETHORPHAN-GUAIFENESIN 67926819979 Active Jillina Frakerriel MACHINIST APPRENTICE Active PREDNISONE 20 MG TAB 2 tabs daily for 3 days, 1 t ab daily for 3 days, 1/2 tab daily for 2 days PREDNISONE 91016389795 No Longer Active Jillina Frakerriel MACHINIST APPRENTICE Active TUSSIONEX PENNKINETIC ER 10-8 MG/5ML ORAL LQCR 5 mL PO q 12 hrs PRN cough HYDROCOD POLST-CHLORPHEN POLST 20241699261 No Longer Active Jillina Frazell MACHINIST APPRENTICE Active FLUTICASONE PROPIONATE 50 MCG/ACT SUSP 2 sprays each n ostril daily until bottle is empty FLUTICASONE PROPIONATE 57668140027 No Longer Ac tive Jillina Frazell MACHINIST APPRENTICE Active ASMANEX 60 METERED DOSES 220 MCG/INH AEPB 1 puff bid with ri nse after MOMETASONE FUROATE 30013472854 No Longer Active Jillina Darlin ell MACHINIST APPRENTICE Active ZITHROMAX Z-REYNA 250 MG TABS 2 today, then 1 daily for 4 days 201 7/02/15 AZITHROMYCIN 85009246712 No Longer Active Elise Whitmore APRN Active TUSSIONEX PENNKINETIC ER 10-8 MG/5ML LQCR 5ml po q12hr PRN Cough HYDROCOD POLST-CHLORPHEN POLST 07577891711 No Longer Active Elise Whitmore APRN Active MUCINEX D 60-600 MG [id number] 1 tab po q am PSEUDOEPHEDRINE-GUAIFENESIN 34280558353 Active Jillina Frazell MACHINIST APPRENTICE Active PREDNISONE 20 MG TAB 2 tabs daily for 3 days, 1 t ab daily for 3 days, 1/2 tab daily for 2 days PREDNISONE 36773299765 No Longer Active Jillina Frazell MACHINIST APPRENTICE Active AMOXICILLIN 500 MG CAPS 2 po BID x 10 days AMOX ICILLIN 52430812352 No Longer Active Jillina Frazell MACHINIST APPRENTICE Active SINGULAIR 10 MG TABS 1 po qday for allergies 2 MONTELUKAST SODIUM 39315726890 No Longer Active Carlton Hu MD Acti ve LEVAQUIN 500 MG TAB 1 tablet by mouth daily LEV OFLOXACIN 33797519164 No Longer Active Carlton Hu MD Active FLUTICASONE PROPIONATE 50 MCG/ACT SUSP 2 sprays each n ostril daily for 2 weeks, then 1 spray each nostril daily. FLUTICASONE PRO PIONATE 44777791274 Active Elise Whitmore APRN Active ZITHROMAX 250 MG TAB 2 po today, then 1 po q days 2-5 AZITHROMYCIN 15450062434 No Longer Active Elise Whitmore APRN Acti ve XANAX 0.5 MG TABS one tablet by mouth daily prn anxiety ALPRAZOLAM 77142572992 Active Elise Whitmore APRN Active CYMBALTA 30 MG CPEP 1 cap by mouth daily for depression DULOXETINE HCL 02004898188 Active Carlton Hu MD Active CEFDINIR 300 MG CAPS 1 po BID x 10 days CEFDINI R 12443160580 No Longer Active Carlton Hu MD Active ZOCOR 40 MG TAB 1 tab by mouth daily SIMVASTATI N 96609112842 No Longer Active Carlton Hu MD Active CYCLOBENZAPRINE HCL 10 MG TABS 1 tablet by mouth BID prn had cherelle n CYCLOBENZAPRINE HCL 18406504628 No Longer Active Carlton Hu MD Active LEVOFLOXACIN 500 MG ORAL TABS 1 tab PO daily x 10 days LEVOFLOXACIN 30648334171 No Longer Active Carlotn Hu MD Acti ve PREDNISONE 20 MG ORAL TABS 3 tab PO qd x 2d, 2 tab PO qd x 2d, 1 tab PO qd x 2d, 1/2 tab PO qd x 2d PREDNISONE 03978010522 No Longer Active Carlton Hu MD Active FLUTICASONE PROPIONATE 50 MCG/ACT SUSP 1 to 2 sprays each no stril daily FLUTICASONE PROPIONATE 48344038125 No Longer Active T jaz HERNANDEZ Active CHERATUSSIN AC 100-10 MG/5ML SYRP 1 tsp by mouth every 4 hours as needed for cough GUAIFENESIN-CODEINE 11710873906 No Longer Activ e Blaine HERNANDEZ Active PROMETHAZINE-CODEINE 6.25-10 MG/5ML SYRP 1 tsp by mout h every 6 hours if needed for cough PROMETHAZINE-CODEINE 19323024458 No Long er Active Blaine HERNANDEZ Active CHERATUSSIN AC 100-10 MG/5ML SYRP 1 tsp by mouth every 4 hours as needed for cough GUAIFENESIN-CODEINE 60568286970 No Longer Activ e Blaine HERNANDEZ Active ZITHROMAX Z-REYNA 250 MG TABS 2 today, then 1 daily for 4 days 201 08/30/03 AZITHROMYCIN 07714786074 No Longer Active Columba Raida Act nael ZITHROMAX 250 MG TAB 2 po today, then 1 po q days 2-5 AZITHROMYCIN 84015947534 No Longer Active Carlton Hu MD Acti ve ZITHROMAX Z-REYNA 250 MG TABS 2 today, then 1 daily for 4 days 201 08/07/20 AZITHROMYCIN 41585466388 No Longer Active Columba Raida Act nael AUGMENTIN 875-125 MG TAB 1 po BID x 10 days AMOXICILLIN- POT CLAVULANATE 34550784650 No Longer Active Jillina Frazell MACHINIST APPRENTICE Active ZITHROMAX 250 MG TAB 2 po today, then 1 po q days 2-5 AZITHROMYCIN 43529131338 No Longer Active Carlton Hu MD Acti ve TRAMADOL HCL 50 MG TABS 1 po tid with ES Tylenol TRAMADOL HCL 68500562142 Active Carlton Hu MD Active PREMARIN 0.625 MG TABS TAKE 1 TAB BY MOUTH DAILY 07/25 ESTROGENS CONJUGATED 29026956724 No Longer Active Ridge Bess DO Active CYMBALTA 30 MG CPEP 1 cap by mouth daily DULOXE SNEHA HCL 32341827273 No Longer Active Ridge Bess DO Active AMOXICILLIN 500 MG CAP 1 tab by mouth 3 times daily x 10 days 20 14/04/28 AMOXICILLIN 94975234149 No Longer Active Carlton Hu MD Active AMOXICILLIN 500 MG CAP 1 tab by mouth 3 times daily x 10 days 20 13/03/08 AMOXICILLIN 68994398074 No Longer Active Carlton Hu MD Active PROMETHAZINE-CODEINE 6.25-10 MG/5ML SYRP 1 tsp by mouth ever y 8 hours prn cough PROMETHAZINE-CODEINE 01290245904 No Longer Active Robert Hu MD Active MEDROL (REYNA) 4 MG TABS 6 pills x 1 day, then 5 pill s x 1 day then 4 pills x 1 day, then 3 pills x 1 day, then 2 pills x 1 day, then 1 pill x 1 day, then stop METHYLPREDNISOLONE 02719586122 No Longer Active Parris Mora MD Active AZITHROMYCIN 250 MG TABS 2 po qd x 1 day, then 1 po qd x 4 days AZITHROMYCIN 12380833508 No Longer Active Perez Mora MD Active SYMBICORT 160-4.5 MCG/ACT AERO 2 puffs bid with rinse after 2011 BUDESONIDE-FORMOTEROL FUMARATE 54146753946 No Longer Active Perez Mora MD Active LYRICA 75 MG CAPS TAKE 1 CAPSULE BY MOUTH TWICE DAILY 2013 PREGABALIN 05709182074 No Longer Active Carlton Hu MD Active TOPAMAX 25 MG TABS 1 qHS x 1 week, then 1 BID x 1 week, then 1 qAM and 2 qHS x 1 week, then 2 BID (migraine prevention) TOPIRAMAT E 42915683954 No Longer Active Jerica FUENTES Active TOPAMAX 50 MG TABS take 1 tab po BID for migraines. 12/07/10 TOPIRAMATE 41371632423 No Longer Active Jerica FUENTES Ac tive TOPAMAX 100 MG TABS Take 1 tablet po bid TOPIRAMATE 4999 7849219 Active Elise Whitmore APRN Active TRIAMCINOLONE ACETONIDE 0.1 % CREA apply three times daily prn r beatrice TRIAMCINOLONE ACETONIDE 16744947363 No Longer Active Carlton Hu MD Active PAXIL 40 MG TAB take 1 tab po qday for depression PAROXETINE HCL 78898963378 Active Elise Whitmore APRN Active CHERATUSSIN AC 100-10 MG/5ML SYRP 5ml po q6hr PRN Cough GUAIFENESIN-CODEINE 27483555085 No Longer Active Carlton Hu MD Active MEDROL (REYNA) 4 MG TABS 6 tabs on day 1, 5 tabs on d ay 2, 4 tabs on day 3, 3 tabs on day 4, 2 tabs on day 5, 1 tab on day 6 METHYLPREDNISOLONE 11769303986 No Longer Active Perez Mora MD Active AZITHROMYCIN 250 MG TABS 2 po qd x 1 day, then 1 po qd x 4 days AZITHROMYCIN 05788730552 No Longer Active Perez Mora MD Active PROPRANOLOL HCL 60 MG TABS 1 PO Q D PROPRANOL OL HCL 77288777494 No Longer Active Perez Mora MD Active CHERATUSSIN AC 100-10 MG/5ML SYRP take one tsp po Q 6hours prn c ough GUAIFENESIN-CODEINE 27372317617 No Longer Active Perez Means Active AUGMENTIN 875-125 MG TAB 1 tab by mouth twice daily with food 12/03/31 AMOXICILLIN-POT CLAVULANATE 91427635904 No Longer Active Chanel Mora MD Active CHERATUSSIN AC 100-10 MG/5ML SYRP 1 tsp by mouth every 4 hours as needed for cough GUAIFENESIN-CODEINE 21715470956 No Longer Activ e Hugo Restrepo MD Active ACETAMINOPHEN-CODEINE #3 300-30 MG TABS 1 PO Q 4-6 HRS PRN PAIN ACETAMINOPHEN-CODEINE 09459399335 No Longer Active Hugo Restrepo MD Active LEVAQUIN 500 MG TABS take one po QD LEVOFLOXACI N 53749274666 No Longer Active Griffin HERNANDEZ Active PREDNISONE 20 MG TAB Take 3 tabs daily for 3 days , 2 tabs daily for 3 days, 1 tab daily for 3 days, 1/2 tab daily for 3 days P REDNISONE 65063849356 No Longer Active Carlton Hu MD Active AVELOX 400 MG TABS 1 tab by mouth daily MOXIFLO XACIN HCL 34405978094 No Longer Active Carlton Hu MD Active CHERATUSSIN AC 100-10 MG/5ML SYRP 1 tsp by mouth every 4 hours as needed for cough GUAIFENESIN-CODEINE 46953539559 No Longer Activ e Hugo Restrepo MD Active AVELOX 400 MG TABS 1 tab by mouth daily MOXIFLO XACIN HCL 48115640954 No Longer Active Marcy De La Rosa MD PhD Active TERBINAFINE HCL 250 MG TABS 1 qDay TERBINAF INE HCL 15714077428 No Longer Active Marcy De La Rosa MD PhD Active CHERATUSSIN AC 100-10 MG/5ML SYRP 1 tsp by mouth every 4 hours as needed for cough GUAIFENESIN-CODEINE 06580941767 No Longer Activ e Marcy De La Rosa MD PhD Active AVELOX 400 MG TABS 1 tab by mouth daily MOXIFLO XACIN HCL 24744683697 No Longer Active Marcy De La Rosa MD PhD Active HYDROCODONE-ACETAMINOPHEN 5-325 MG TABS 1 po q 6hr PRN cough 201 05/09/16 HYDROCODONE-ACETAMINOPHEN 91116154916 No Longer Active Marcy De La Rosa MD PhD Active PREDNISONE 20 MG TAB 2 tabs daily for 3 days, 1 t ab daily for 3 days, 1/2 tab daily for 2 days PREDNISONE 80408171967 No Longer Active Carlton Hu MD Active CEFDINIR 300 MG CAPS by mouth twice a day CEFDI ODILIA 50573434748 No Longer Active Carlton Hu MD Active HYDROCHLOROTHIAZIDE 25 MG TABS 1 TAB PO DAILY H YDROCHLOROTHIAZIDE 29875953791 Active Carlton Hu MD Active ACETAMINOPHEN-CODEINE #3 300-30 MG TABS 1 tablet po q 4-6hrs prn pain ACETAMINOPHEN-CODEINE 25225942067 No Longer Active Ridge Bess DO Active ZITHROMAX 250 MG TAB 2 po today, then 1 po q days 2-5 AZITHROMYCIN 34118808720 No Longer Active Cralton Hu MD Acti ve CHERATUSSIN AC 100-10 MG/5ML SYRP take 1 tsp po q4-6 hours prn c ough GUAIFENESIN-CODEINE 70848215161 No Longer Active Carlton Hu MD Active ACETAMINOPHEN-CODEINE #3 300-30 MG TABS 1 PO Q 4-6 HR PRN PAIN 2 ACETAMINOPHEN-CODEINE 25333319616 No Longer Active Carlton rich MD Active LORTAB 7.5-500 MG/15ML ELIX 7.5 ml po q 4 hour prn cough HYDROCODONE-ACETAMINOPHEN 38216946181 No Longer Active Carlton Hu MD Active PREDNISONE 20 MG TAB 1 po bid 3 days, then 1 po q day 3 days 201 05/03/07 PREDNISONE 55979294079 No Longer Active Carlton Hu MD Active ELMIRON 100 MG CAPS 2 tablets in the am and 1 tablet at hs PENTOSAN POLYSULFATE SODIUM 56089301503 Active Carlton Hu MD Ac tive CEFDINIR 300 MG CAPS by mouth twice a day CEFDI ODILIA 03305508803 No Longer Active Carlton Hu MD Active CEFDINIR 300 MG CAPS by mouth twice a day CEFDI ODILIA 87978342495 No Longer Active Carlton Hu MD Active CEFDINIR 300 MG CAPS by mouth twice a day CEFDI ODILIA 48752666219 No Longer Active Carlton Hu MD Active TESSALON PERLES 100 MG CAP 1 tablet by mouth 3 times daily a s needed for cough BENZONATATE 48994397130 No Longer Active Carlton bustamante MD Active CEFDINIR 300 MG CAPS by mouth twice a day CEFDI ODILIA 07596351974 No Longer Active Carlton Hu MD Active ZITHROMAX Z-REYNA 250 MG TABS 2 today, then 1 daily for 4 days 201 04/09/17 AZITHROMYCIN 21409602365 No Longer Active Hugo Restrepo MD Active TESSALON PERLES 100 MG CAP 1 tablet by mouth 3 times daily a s needed for cough TESSALON PERLES 100 MG CAP 562520 BENZONATATE I nactive PREDNISONE 20 MG TAB 1 po bid 3 days, then 1 po q day 3 days 201 05/03/07 PREDNISONE 20 MG TAB 907737 PREDNISONE Inactive LORTAB 7.5-500 MG/15ML ELIX 7.5 ml po q 4 hour prn cough LORTAB 7.5-500 MG/15ML ELIX HYDROCODONE-ACETAMINOPHEN Inacti ve ACETAMINOPHEN-CODEINE #3 300-30 MG TABS 1 PO Q 4-6 HR PRN PAIN 2 ACETAMINOPHEN-CODEINE #3 300-30 MG TABS ACETAMIN OPHEN-CODEINE Inactive CHERATUSSIN AC 100-10 MG/5ML SYRP take 1 tsp po q4-6 hours prn c ough CHERATUSSIN AC 100-10 MG/5ML SYRP 449345 GUAIFENESIN-CO DEINE Inactive ACETAMINOPHEN-CODEINE #3 300-30 MG TABS 1 tablet po q 4-6hrs prn pain ACETAMINOPHEN-CODEINE #3 300-30 MG TABS ACETAMIN OPHEN-CODEINE Inactive HYDROCODONE-ACETAMINOPHEN 5-325 MG TABS 1 po q 6hr PRN cough 201 05/09/16 HYDROCODONE-ACETAMINOPHEN 5-325 MG TABS 942142 HYDROCODONE-ACETAMINOPHEN Inactive AVELOX 400 MG TABS 1 tab by mouth daily A VELOX 400 MG TABS 021034 MOXIFLOXACIN HCL Inactive CHERATUSSIN AC 100-10 MG/5ML SYRP 1 tsp by mouth every 4 hours as needed for cough CHERATUSSIN AC 100-10 MG/5ML SYRP 829411 GUAIFENESIN-CODEINE Inactive TERBINAFINE HCL 250 MG TABS 1 qDay TERBINAFINE HCL 250 MG TABS 758238 TERBINAFINE HCL Inactive CHERATUSSIN AC 100-10 MG/5ML SYRP 1 tsp by mouth every 4 hours as needed for cough CHERATUSSIN AC 100-10 MG/5ML SYRP 653443 GUAIFENESIN-CODEINE Inactive ACETAMINOPHEN-CODEINE #3 300-30 MG TABS 1 PO Q 4-6 HRS PRN PAIN ACETAMINOPHEN-CODEINE #3 300-30 MG TABS ACETAMINOPHEN-CODEIN E Inactive CHERATUSSIN AC 100-10 MG/5ML SYRP 1 tsp by mouth every 4 hours as needed for cough CHERATUSSIN AC 100-10 MG/5ML SYRP 614555 GUAIFENESIN-CODEINE Inactive AUGMENTIN 875-125 MG TAB 1 tab by mouth twice daily with food 20 12/03/31 AUGMENTIN 875-125 MG TAB 113762 AMOXICILLIN-POT CLAVULA EFE Inactive CHERATUSSIN AC 100-10 MG/5ML SYRP take one tsp po Q 6hours prn c ough CHERATUSSIN AC 100-10 MG/5ML SYRP 334517 GUAIFENESIN-CO DEINE Inactive PROPRANOLOL HCL 60 MG TABS 1 PO Q D P ROPRANOLOL HCL 60 MG TABS 086141 PROPRANOLOL HCL Inactive TOPAMAX 50 MG TABS take 1 tab po BID for migraines. 12/07/10 TOPAMAX 50 MG TABS 812035 TOPIRAMATE Inactive TOPAMAX 25 MG TABS 1 qHS x 1 week, then 1 BID x 1 week, then 1 qAM and 2 qHS x 1 week, then 2 BID (migraine prevention) TOPAMAX 2 5 MG TABS 116768 TOPIRAMATE Inactive LYRICA 75 MG CAPS TAKE 1 CAPSULE BY MOUTH TWICE DAILY LYRICA 75 MG CAPS PREGABALIN Inactive SYMBICORT 160-4.5 MCG/ACT AERO 2 puffs bid with rinse after 2011 SYMBICORT 160-4.5 MCG/ACT AERO BUDESONIDE-FORMOT SÁNCHEZ FUMARATE Inactive PROMETHAZINE-CODEINE 6.25-10 MG/5ML SYRP 1 tsp by mouth ever y 8 hours prn cough PROMETHAZINE-CODEINE 6.25-10 MG/5ML SYRP 680720 PROMETHAZINE-CODEINE Inactive CYMBALTA 30 MG CPEP 1 cap by mouth daily CYMBALTA 30 MG CPEP 222632 DULOXETINE HCL Inactive PREMARIN 0.625 MG TABS TAKE 1 TAB BY MOUTH DAILY 07/25 PREMARIN 0.625 MG TABS ESTROGENS CONJUGATED Inactive CHERATUSSIN AC 100-10 MG/5ML SYRP 1 tsp by mouth every 4 hours as needed for cough CHERATUSSIN AC 100-10 MG/5ML SYRP 956341 GUAIFENESIN-CODEINE Inactive PROMETHAZINE-CODEINE 6.25-10 MG/5ML SYRP 1 tsp by mout h every 6 hours if needed for cough PROMETHAZINE-CODEINE 6.25-10 MG/5ML SYRP 110253 PROMETHAZINE-CODEINE Inactive CHERATUSSIN AC 100-10 MG/5ML SYRP 1 tsp by mouth every 4 hours as needed for cough CHERATUSSIN AC 100-10 MG/5ML SYRP 729626 GUAIFENESIN-CODEINE Inactive FLUTICASONE PROPIONATE 50 MCG/ACT SUSP 1 to 2 sprays each no stril daily FLUTICASONE PROPIONATE 50 MCG/ACT SUSP 3061881 FLUTICASONE PROPIONATE Inactive PREDNISONE 20 MG ORAL TABS 3 tab PO qd x 2d, 2 tab PO qd x 2d, 1 tab PO qd x 2d, 1/2 tab PO qd x 2d PREDNISONE 20 MG ORAL TABS 165643 PREDNISONE Inactive LEVOFLOXACIN 500 MG ORAL TABS 1 tab PO daily x 10 days LEVOFLOXACIN 500 MG ORAL TABS 491481 LEVOFLOXACIN Inactive CYCLOBENZAPRINE HCL 10 MG TABS 1 tablet by mouth BID prn had cherelle n CYCLOBENZAPRINE HCL 10 MG TABS 131560 CYCLOBENZAPRINE H CL Inactive ZOCOR 40 MG TAB 1 tab by mouth daily ZOCOR 40 M G TAB 447931 SIMVASTATIN Inactive TUSSIONEX PENNKINETIC ER 10-8 MG/5ML [...] empty FLUTICASONE PROPIONATE 50 MCG/ACT SUSP 17 41269 FLUTICASONE PROPIONATE Inactive TUSSIONEX PENNKINETIC ER 10-8 [...] 201 04/09/17 ZITHROMAX Z-REYNA 250 MG TABS 3476712 AZITHROMYCIN Inac tive CEFDINIR 300 MG CAPS [...] q days 2-5 ZITHROMAX 250 MG TAB 6595044 AZITHROMYCIN Inactive CEFDINIR 300 MG CAPS by mouth twice a day CEFDINIR 300 MG CAPS 20020704 CEFDINIR Inactive PREDNISONE 20 MG TAB 2 tabs daily for 3 days, 1 t ab daily for 3 days, 1/2 tab daily for 2 days PREDNISONE 20 MG TAB 973112 PREDNISON E Inactive AVELOX 400 MG TABS 1 tab by mouth daily A VELOX 400 MG TABS 804826 MOXIFLOXACIN HCL Inactive AVELOX 400 MG TABS 1 tab by mouth daily A VELOX 400 MG TABS 055305 MOXIFLOXACIN HCL Inactive PREDNISONE 20 MG TAB Take 3 tabs daily for 3 days , 2 tabs daily for 3 days, 1 tab daily for 3 days, 1/2 tab daily for 3 days PREDNISONE 20 MG TAB 054903 PREDNISONE Inactive LEVAQUIN 500 MG TABS take one po QD LEVAQUIN 50 0 MG TABS 344952 LEVOFLOXACIN Inactive AZITHROMYCIN 250 MG TABS 2 po qd x 1 day, then 1 po qd x 4 days AZITHROMYCIN 250 MG TABS 1034508 AZITHROMYCIN Inactiv e MEDROL (REYNA) 4 MG TABS 6 tabs on day 1, 5 tabs on d ay 2, 4 tabs on day 3, 3 tabs on day 4, 2 tabs on day 5, 1 tab on day 6 MEDROL (REYNA) 4 MG TABS 242372 METHYLPREDNISOLONE Inactive CHERATUSSIN AC 100-10 MG/5ML SYRP 5ml po q6hr PRN Cough CHERATUSSIN AC 100-10 MG/5ML SYRP 356314 GUAIFENESIN-CODEINE Inacti ve TRIAMCINOLONE ACETONIDE 0.1 % CREA apply three times daily prn r beatrice TRIAMCINOLONE ACETONIDE 0.1 % CREA 6655611 TRIAMCINOLONE ACETONIDE Inactive AZITHROMYCIN 250 MG TABS 2 po qd x 1 day, then 1 po qd x 4 days AZITHROMYCIN 250 MG TABS 9320154 AZITHROMYCIN Inactiv e MEDROL (REYNA) 4 MG TABS 6 pills x 1 day, then 5 pill s x 1 day then 4 pills x 1 day, then 3 pills x 1 day, then 2 pills x 1 day, then 1 pill x 1 day, then stop MEDROL (REYNA) 4 MG TABS 725499 METHYLPREDNISOLONE Inactive AMOXICILLIN 500 MG CAP 1 tab by mouth 3 times daily x 10 days 20 13/03/08 AMOXICILLIN 500 MG CAP 462527 AMOXICILLIN Inactive AMOXICILLIN 500 MG CAP 1 tab by mouth 3 times daily x 10 days 20 14/04/28 AMOXICILLIN 500 MG CAP 715754 AMOXICILLIN Inactive ZITHROMAX 250 MG TAB 2 po today, then 1 po q days 2-5 ZITHROMAX 250 MG TAB 6227108 AZITHROMYCIN Inactive AUGMENTIN 875-125 MG TAB 1 po BID x 10 days AUGMENTIN 875- 125 MG TAB 246137 AMOXICILLIN-POT CLAVULANATE Inactive ZITHROMAX Z-REYNA 250 MG TABS 2 today, then 1 daily for 4 days 201 08/07/20 ZITHROMAX Z-REYNA 250 MG TABS 4274120 AZITHROMYCIN Inac tive ZITHROMAX 250 MG TAB 2 po today, then 1 po q days 2-5 ZITHROMAX 250 MG TAB 9930490 AZITHROMYCIN Inactive ZITHROMAX Z-REYNA 250 MG TABS 2 today, then 1 daily for 4 days 201 08/30/03 ZITHROMAX Z-REYNA 250 MG TABS 5760154 AZITHROMYCIN Inac tive CEFDINIR 300 MG CAPS 1 po BID x 10 days C EFDINIR 300 MG CAPS 20020704 CEFDINIR Inactive ZITHROMAX 250 MG TAB 2 po today, then 1 po q days 2-5 ZITHROMAX 250 MG TAB 8571190 AZITHROMYCIN Inactive LEVAQUIN 500 MG TAB 1 tablet by mouth daily LEVAQUIN 500 MG TAB 810815 LEVOFLOXACIN Inactive SINGULAIR 10 MG TABS 1 po qday for allergies 2 SINGULAIR 10 MG TABS 20010504 MONTELUKAST SODIUM Inactive AMOXICILLIN 500 MG CAPS 2 po BID x 10 days AMOXICILLIN 500 MG CAPS 470814 AMOXICILLIN Inactive PREDNISONE 20 MG TAB 2 tabs daily for 3 days, 1 t ab daily for 3 days, 1/2 tab daily for 2 days PREDNISONE 20 MG TAB 666900 PREDNISON E Inactive ZITHROMAX Z-REYNA 250 MG TABS 2 today, then 1 daily for 4 days 201 09/29/14 ZITHROMAX Z-REYNA 250 MG TABS 8358297 AZITHROMYCIN Inac tive PREDNISONE 20 MG TAB 2 tabs daily for 3 days, 1 t ab daily for 3 days, 1/2 tab daily for 2 days PREDNISONE 20 MG TAB 497257 PREDNISON E Inactive ZITHROMAX 250 MG TAB 2 po today, then 1 po q days 2-5 ZITHROMAX 250 MG TAB 5019354 AZITHROMYCIN Inactive Vital Signs Date Name Value [...] Negative Encounters Code Encounter Date Provider Facility CPT-13388 Level 3 Est. Patient 12:17:50 CDT Hugo Restrepo MD [facility] CPT-76964 Level 3 Est. Patient 13:42:38 CDT Italo [facility] CPT-60751 Level 3 Est. Patient 13:23:51 CDT Diya cobian [facility]-62243 Level 3 Est. Patient 14:22:19 FUND DEVELOPMENT MANAGER Diya holtgideon [facility] CPT-18062 Level 3 Est. Patient 10:11:46 CDT Carlton rich MD [facility]-04412 Level 3 Est. Patient 17:29:43 CDT Elise Cesar spaulding [facility] CPT-96518 Level 3 Est. Patient 11:58:06 CDT Elise Guerrero asaelgiselle [facility] CPT-29222 Level 4 Est. Patient 14:36:51 CDT Carlton rich MD [facility]-96648 Level 3 Est. Patient 18:16:00 FUND DEVELOPMENT MANAGER Blaine Freeman [facility] CPT-65751 Level 3 Est. Patient 09:45:49 FUND DEVELOPMENT MANAGER Carlton rich MD [facility]-49784 Level 3 Est. Patient 13:19:20 CDT Carlton rich MD [facility] CPT-45761 Level 3 Est. Patient 13:06:43 CDT Rdige atm DO [facility] CPT-40717 Level 3 Est. Patient 10:03:07 CDT Perez Mora MD [facility] CPT-85869 Level 3 Est. Patient 19:50:35 FUND DEVELOPMENT MANAGER Carlton rich MD [facility] CPT-99291 Level 4 Est. Patient 18:05:01 FUND DEVELOPMENT MANAGER Carlton rich MD [facility]-81060 Level 3 Est. Patient 10:45:55 FUND DEVELOPMENT MANAGER Hugo Restrepo MD [facility]-15186 Level 3 Est. Patient 14:12:49 CDT Griffin lincoln [facility] CPT-16460 Level 3 Est. Patient 17:37:24 CDT Carlton rich MD [facility] CPT-75633 Level 3 Est. Patient 16:51:54 CDT Carlton rich MD [facility]-70616 Level 3 Est. Patient 12:18:11 CDT Hugo Restrepo MD [facility]-72357 Level 3 Est. Patient 11:30:25 CDT Marcy crisostomo MD PhD [facility]-71888 Level 3 Est. Patient 12:00:47 FUND DEVELOPMENT MANAGER Carlton rich MD [facility]-00599 Level 3 Est. Patient 16:31:06 FUND DEVELOPMENT MANAGER Carlton rich MD [facility]-84167 Level 3 Est. Patient 16:23:24 FUND DEVELOPMENT MANAGER Ridge tam [facility] CPT-16479 Level 3 Est. Patient 12:34:12 CDT Carlton rich MD [facility] CPT-63729 Level 2 Est. Patient 15:43:33 CDT Robi armstrong MD [facility]-26783 Level 4 Est. Patient 14:04:44 CDT Carlton rich MD [facility]-82279 Level 3 Est. Patient 05:47:[address] [facility] CPT-76746 Level 3 Est. Patient 13:12:53 FUND DEVELOPMENT MANAGER Carlton rich MD [facility]-18535 Level 3 Est. Patient 14:26:53 CDT Hugo Restrepo MD [facility] Procedures Code Procedure Name Date Entry Date Standard Desc ription CPT-J1040 Depo Medrol 80 mg (Methyl Prednisolone A cetate) 10:42:44 CDT CPT-J1100 Decadron 8mg (Dexamethasone) 10:42:44 CDT 2 CPT-J0696 Rocephin 1gm Inj Solr 14:32:13 CDT CPT-J1020 Depo Medrol 60 mg (Methyl Prednisolone A cetate) 14:32:13 CDT CPT-J1100 Decadron 6mg (Dexamethasone) 14:32:13 CDT 2 CPT-66211 Hip bilat min 2V w AP pelvis 13:16:20 CDT 2 CPT-73861 Pelvis only 13:07:33 CDT CPT-82722 Spec Collection and Handling Fee 11:25:12 C DT CPT-53437 Fluzone Quadrivalent Intramuscular Suspe nsion 0.5 ML 14:31:55 CDT CPT-15552 Abx/Therapy Injection 13:28:47 FUND 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
--- OUTSIDE RECORDS SUMMARY | 2019-10-08 08:17 | XMS REPORT | Clinical Summary ---
Author Author Caitlin, Juliana Martinez Organization [facility] Address Unknown Phone Unavailable Allergies, [...] sites Sinusitis 473.9 Active Diya De Guzman CONTINUOUS DRYOUT OPERATOR Unspecified sinusitis (chronic) Bronchitis-Acute 466.0 Active Carlton Hu MD Acute bronchitis URI - acute 465.9 Active Elise Whitmore CONTINUOUS DRYOUT OPERATOR Acute upper respiratory infections of unspecified site Pharyngitis acute 462 Active Elise Whitmore A PRN Acute pharyngitis Rhinitis, acute 460 Active Elise Whitmore APR N Acute nasopharyngitis [common cold] Sinusitis 473.9 Active Diya De Guzman CONTINUOUS DRYOUT OPERATOR Unspecified sinusitis (chronic) Bronchitis 490 Active Diya De Guzman CONTINUOUS DRYOUT OPERATOR Bronchitis, not specified as acute or [...] a d ay as needed ALBUTEROL SULFATE 63928705183 Active Jillina Frakerriel APR N Active MUCINEX DM MAXIMUM STRENGTH 60-1200 MG [id number] 1 tab po q am 2016 DEXTROMETHORPHAN-GUAIFENESIN 20102285280 Active Jillina Frazell CONTINUOUS DRYOUT 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 TUSSIONEX PENNKINETIC ER 10-8 MG/5ML LQCR 5ml po q12hr PRN Cough 20 14/06/21 HYDROCOD POLST-CHLORPHEN POLST 83289828862 Active Jillina Frazell CONTINUOUS DRYOUT 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 PREDNISONE 20 MG TAB 2 tabs daily for 3 days, 1 t ab daily for 3 days, 1/2 tab daily for 2 days PREDNISONE 43288624383 Active Jillina Cesarl CONTINUOUS DRYOUT 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 TUSSIONEX PENNKINETIC ER 10-8 MG/5ML ORAL LQCR 5 mL PO q 12 hrs PRN cough HYDROCOD POLST-CHLORPHEN POLST 25048775703 No Longer Active Jillina Frazell CONTINUOUS DRYOUT 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 FLUTICASONE PROPIONATE 50 MCG/ACT SUSP 2 sprays each n ostril daily until bottle is empty FLUTICASONE PROPIONATE 01911662347 No Longer Ac tive Jillina Frazell CONTINUOUS DRYOUT 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 ASMANEX 60 METERED DOSES 220 MCG/INH AEPB 1 puff bid with ri nse after MOMETASONE FUROATE 90589528584 No Longer Active Venullina Darlin ell CONTINUOUS DRYOUT 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 ZITHROMAX Z-REYNA 250 MG TABS 2 today, then 1 daily for 4 days 201 09/29/14 AZITHROMYCIN 62990886739 No Longer Active Elise Whitmore APRN Active TUSSIONEX PENNKINETIC ER 10-8 MG/5ML LQCR 5ml po q12hr PRN Cough HYDROCOD POLST-CHLORPHEN POLST 29031903339 No Longer Active Elise Whitmore APRN Active MUCINEX D 60-600 MG [id number] 1 tab po q am PSEUDOEPHEDRINE-GUAIFENESIN 41577103950 Active Jillina Frazell CONTINUOUS DRYOUT 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 PREDNISONE 20 MG TAB 2 tabs daily for 3 days, 1 t ab daily for 3 days, 1/2 tab daily for 2 days PREDNISONE 55820199484 No Longer Active Jillina Frazell CONTINUOUS DRYOUT 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 AMOXICILLIN 500 MG CAPS 2 po BID x 10 days AMOX ICILLIN 55589621234 No Longer Active Jillina Frazell CONTINUOUS DRYOUT 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 SINGULAIR 10 MG TABS 1 po qday for allergies 2 MONTELUKAST SODIUM 54650906381 No Longer Active Carlton Hu MD Acti ve LEVAQUIN 500 MG TAB 1 tablet by mouth daily LEV OFLOXACIN 01233486097 No Longer Active Carlton Hu MD Active FLUTICASONE PROPIONATE 50 MCG/ACT SUSP 2 sprays each n ostril daily for 2 weeks, then 1 spray each nostril daily. FLUTICASONE PRO PIONATE 63267309355 Active Elise Whitmore APRN Active ZITHROMAX 250 MG TAB 2 po today, then 1 po q days 2-5 AZITHROMYCIN 50651478347 No Longer Active Elise Whitmore APRN Acti ve XANAX 0.5 MG TABS one tablet by mouth daily prn anxiety ALPRAZOLAM 57189132494 Active Elise Whitmore APRN Active CYMBALTA 30 MG CPEP 1 cap by mouth daily for depression DULOXETINE HCL 69653617886 Active Carlton Hu MD Active CEFDINIR 300 MG CAPS 1 po BID x 10 days CEFDINI R 90577643819 No Longer Active Carlton Hu MD Active ZOCOR 40 MG TAB 1 tab by mouth daily SIMVASTATI N 03961719472 No Longer Active Carlton Hu MD Active CYCLOBENZAPRINE HCL 10 MG TABS 1 tablet by mouth BID prn had cherelle n CYCLOBENZAPRINE HCL 25849422641 No Longer Active Carlton Hu MD Active LEVOFLOXACIN 500 MG ORAL TABS 1 tab PO daily x 10 days LEVOFLOXACIN 83727353209 No Longer Active Carlton Hu MD Acti ve PREDNISONE 20 MG ORAL TABS 3 tab PO qd x 2d, 2 tab PO qd x 2d, 1 tab PO qd x 2d, 1/2 tab PO qd x 2d PREDNISONE 51736289370 No Longer Active Carlton Hu MD Active FLUTICASONE PROPIONATE 50 MCG/ACT SUSP 1 to 2 sprays each no stril daily FLUTICASONE PROPIONATE 66934082142 No Longer Active T jaz HERNANDEZ Active CHERATUSSIN AC 100-10 MG/5ML SYRP 1 tsp by mouth every 4 hours as needed for cough GUAIFENESIN-CODEINE 89035560637 No Longer Activ e Blaine HERNANDEZ Active PROMETHAZINE-CODEINE 6.25-10 MG/5ML SYRP 1 tsp by mout h every 6 hours if needed for cough PROMETHAZINE-CODEINE 26683276427 No Long er Active Blaine HERNANDEZ Active CHERATUSSIN AC 100-10 MG/5ML SYRP 1 tsp by mouth every 4 hours as needed for cough GUAIFENESIN-CODEINE 90846916375 No Longer Activ e Blaine HERNANDEZ Active ZITHROMAX Z-REYNA 250 MG TABS 2 today, then 1 daily for 4 days 201 08/30/03 AZITHROMYCIN 01921375844 No Longer Active Columbabrady Parrish Act nael ZITHROMAX 250 MG TAB 2 po today, then 1 po q days 2-5 AZITHROMYCIN 69790174939 No Longer Active Carlton Hu MD Acti ve ZITHROMAX Z-REYNA 250 MG TABS 2 today, then 1 daily for 4 days 201 08/07/20 AZITHROMYCIN 09124438507 No Longer Active Columba Parrish Act nael AUGMENTIN 875-125 MG TAB 1 po BID x 10 days AMOXICILLIN- POT CLAVULANATE 48922001420 No Longer Active Diya De Guzman APRN Active ZITHROMAX 250 MG TAB 2 po today, then 1 po q days 2-5 AZITHROMYCIN 24825840833 No Longer Active Carlton Hu MD Acti ve TRAMADOL HCL 50 MG TABS 1 po tid with ES Tylenol TRAMADOL HCL 87270263618 Active Carlton Hu MD Active PREMARIN 0.625 MG TABS TAKE 1 TAB BY MOUTH DAILY 07/25 ESTROGENS CONJUGATED 48527916628 No Longer Active Ridge Bess DO Active CYMBALTA 30 MG CPEP 1 cap by mouth daily DULOXE SNEHA HCL 87422229979 No Longer Active Ridge Bess DO Active AMOXICILLIN 500 MG CAP 1 tab by mouth 3 times daily x 10 days 20 14/04/28 AMOXICILLIN 10570241811 No Longer Active Carlton Hu MD Active AMOXICILLIN 500 MG CAP 1 tab by mouth 3 times daily x 10 days 20 13/03/08 AMOXICILLIN 06539869069 No Longer Active Carlton Hu MD Active PROMETHAZINE-CODEINE 6.25-10 MG/5ML SYRP 1 tsp by mouth ever y 8 hours prn cough PROMETHAZINE-CODEINE 27110252927 No Longer Active Robert Hu MD Active MEDROL (REYNA) 4 MG TABS 6 pills x 1 day, then 5 pill s x 1 day then 4 pills x 1 day, then 3 pills x 1 day, then 2 pills x 1 day, then 1 pill x 1 day, then stop METHYLPREDNISOLONE 46769924476 No Longer Active Parris Mora MD Active AZITHROMYCIN 250 MG TABS 2 po qd x 1 day, then 1 po qd x 4 days AZITHROMYCIN 19090891145 No Longer Active Perez Mora MD Active SYMBICORT 160-4.5 MCG/ACT AERO 2 puffs bid with rinse after 2011 BUDESONIDE-FORMOTEROL FUMARATE 03974873828 No Longer Active Perez Mora MD Active LYRICA 75 MG CAPS TAKE 1 CAPSULE BY MOUTH TWICE DAILY 2013 PREGABALIN 72666533089 No Longer Active Carlton Hu MD Active LYRICA 100 MG CAPS Take 1 tab po BID for fibromyalgia PREGABALIN 46554273473 Active Carlton Hu MD Active TOPAMAX 25 MG TABS 1 qHS x 1 week, then 1 BID x 1 week, then 1 qAM and 2 qHS x 1 week, then 2 BID (migraine prevention) TOPIRAMAT E 37403838163 No Longer Active Jerica FUENTES Active TOPAMAX 50 MG TABS take 1 tab po BID for migraines. 12/07/10 TOPIRAMATE 59837704049 No Longer Active Jerica FUENTES Ac tive TOPAMAX 100 MG TABS Take 1 tablet po bid TOPIRAMATE 4999 8643990 Active Elise Whitmore APRN Active TRIAMCINOLONE ACETONIDE 0.1 % CREA apply three times daily prn r beatrice TRIAMCINOLONE ACETONIDE 82537780483 No Longer Active Carlton Hu MD Active PAXIL 40 MG TAB take 1 tab po qday for depression PAROXETINE HCL 88604860718 Active Elise Whitmore APRN Active CHERATUSSIN AC 100-10 MG/5ML SYRP 5ml po q6hr PRN Cough GUAIFENESIN-CODEINE 88710435323 No Longer Active Carlton Hu MD Active MEDROL (REYNA) 4 MG TABS 6 tabs on day 1, 5 tabs on d ay 2, 4 tabs on day 3, 3 tabs on day 4, 2 tabs on day 5, 1 tab on day 6 METHYLPREDNISOLONE 13229478853 No Longer Active Perez Mora MD Active AZITHROMYCIN 250 MG TABS 2 po qd x 1 day, then 1 po qd x 4 days AZITHROMYCIN 22252408660 No Longer Active Perez Mora MD Active PROPRANOLOL HCL 60 MG TABS 1 PO Q D PROPRANOL OL HCL 62955873179 No Longer Active Perez Mora MD Active CHERATUSSIN AC 100-10 MG/5ML SYRP take one tsp po Q 6hours prn c ough GUAIFENESIN-CODEINE 84235630899 No Longer Active Perez Means Active AUGMENTIN 875-125 MG TAB 1 tab by mouth twice daily with food 20 12/03/31 AMOXICILLIN-POT CLAVULANATE 03830939438 No Longer Active Chanel Mora MD Active CHERATUSSIN AC 100-10 MG/5ML SYRP 1 tsp by mouth every 4 hours as needed for cough GUAIFENESIN-CODEINE 88700512537 No Longer Activ e Hugo Restrepo MD Active ACETAMINOPHEN-CODEINE #3 300-30 MG TABS 1 PO Q 4-6 HRS PRN PAIN ACETAMINOPHEN-CODEINE 41655554756 No Longer Active Hugo Restrepo MD Active LEVAQUIN 500 MG TABS take one po QD LEVOFLOXACI N 26511314386 No Longer Active Griffin HERNANDEZ Active PREDNISONE 20 MG TAB Take 3 tabs daily for 3 days , 2 tabs daily for 3 days, 1 tab daily for 3 days, 1/2 tab daily for 3 days P REDNISONE 91369068100 No Longer Active Carlton Hu MD Active AVELOX 400 MG TABS 1 tab by mouth daily MOXIFLO XACIN HCL 49334047280 No Longer Active Carlton Hu MD Active CHERATUSSIN AC 100-10 MG/5ML SYRP 1 tsp by mouth every 4 hours as needed for cough GUAIFENESIN-CODEINE 70415185428 No Longer Activ e Hugo Restrepo MD Active AVELOX 400 MG TABS 1 tab by mouth daily MOXIFLO XACIN HCL 45883620153 No Longer Active Marcy De La Rosa MD PhD Active TERBINAFINE HCL 250 MG TABS 1 qDay TERBINAF INE HCL 70557282952 No Longer Active Marcy De La Rosa MD PhD Active CHERATUSSIN AC 100-10 MG/5ML SYRP 1 tsp by mouth every 4 hours as needed for cough GUAIFENESIN-CODEINE 98642415378 No Longer Activ e Marcy De La Rosa MD PhD Active AVELOX 400 MG TABS 1 tab by mouth daily MOXIFLO XACIN HCL 01005806663 No Longer Active Marcy De La Rosa MD PhD Active HYDROCODONE-ACETAMINOPHEN 5-325 MG TABS 1 po q 6hr PRN cough 201 05/09/16 HYDROCODONE-ACETAMINOPHEN 45918414103 No Longer Active Marcy De La Rosa MD PhD Active PREDNISONE 20 MG TAB 2 tabs daily for 3 days, 1 t ab daily for 3 days, 1/2 tab daily for 2 days PREDNISONE 57675889389 No Longer Active Carlton Hu MD Active CEFDINIR 300 MG CAPS by mouth twice a day CEFDI ODILIA 62183715989 No Longer Active Carlton Hu MD Active HYDROCHLOROTHIAZIDE 25 MG TABS 1 TAB PO DAILY H YDROCHLOROTHIAZIDE 21076761041 Active Carlton Hu MD Active ACETAMINOPHEN-CODEINE #3 300-30 MG TABS 1 tablet po q 4-6hrs prn pain ACETAMINOPHEN-CODEINE 67979972550 No Longer Active Ridge Bess DO Active ZITHROMAX 250 MG TAB 2 po today, then 1 po q days 2-5 AZITHROMYCIN 06445439630 No Longer Active Carlton Hu MD Acti ve CHERATUSSIN AC 100-10 MG/5ML SYRP take 1 tsp po q4-6 hours prn c ough GUAIFENESIN-CODEINE 02585358620 No Longer Active Carlton Hu MD Active ACETAMINOPHEN-CODEINE #3 300-30 MG TABS 1 PO Q 4-6 HR PRN PAIN 2 ACETAMINOPHEN-CODEINE 41657399671 No Longer Active Carlton rich MD Active LORTAB 7.5-500 MG/15ML ELIX 7.5 ml po q 4 hour prn cough HYDROCODONE-ACETAMINOPHEN 20905055472 No Longer Active Carlton Hu MD Active PREDNISONE 20 MG TAB 1 po bid 3 days, then 1 po q day 3 days 201 05/03/07 PREDNISONE 68875851166 No Longer Active Carlton Hu MD Active ELMIRON 100 MG CAPS 2 tablets in the am and 1 tablet at hs PENTOSAN POLYSULFATE SODIUM 83034998517 Active Carlton Hu MD Ac tive CEFDINIR 300 MG CAPS by mouth twice a day CEFDI ODILIA 98516353426 No Longer Active Carlton Hu MD Active CEFDINIR 300 MG CAPS by mouth twice a day CEFDI ODILIA 55962760909 No Longer Active Carlton Hu MD Active CEFDINIR 300 MG CAPS by mouth twice a day CEFDI ODILIA 06423804743 No Longer Active Carlton Hu MD Active TESSALON PERLES 100 MG CAP 1 tablet by mouth 3 times daily a s needed for cough BENZONATATE 11595436858 No Longer Active Carlton bustamante MD Active CEFDINIR 300 MG CAPS by mouth twice a day CEFDI ODILIA 46521870509 No Longer Active Carlton Hu MD Active ZITHROMAX Z-REYNA 250 MG TABS 2 today, then 1 daily for 4 days 201 04/09/17 AZITHROMYCIN 41914252667 No Longer Active Hugo Restrepo MD Active TESSALON PERLES 100 MG CAP 1 tablet by mouth 3 times daily a s needed for cough TESSALON PERLES 100 MG CAP 917115 BENZONATATE I nactive PREDNISONE 20 MG TAB 1 po bid 3 days, then 1 po q day 3 days 201 05/03/07 PREDNISONE 20 MG TAB 063891 PREDNISONE Inactive LORTAB 7.5-500 MG/15ML ELIX 7.5 ml po q 4 hour prn cough LORTAB 7.5-500 MG/15ML ELIX HYDROCODONE-ACETAMINOPHEN Inacti ve ACETAMINOPHEN-CODEINE #3 300-30 MG TABS 1 PO Q 4-6 HR PRN PAIN 2 ACETAMINOPHEN-CODEINE #3 300-30 MG TABS 999130 ACETAMIN OPHEN-CODEINE Inactive CHERATUSSIN AC 100-10 MG/5ML SYRP take 1 tsp po q4-6 hours prn c ough CHERATUSSIN AC 100-10 MG/5ML SYRP 171327 GUAIFENESIN-CO DEINE Inactive ACETAMINOPHEN-CODEINE #3 300-30 MG TABS 1 tablet po q 4-6hrs prn pain ACETAMINOPHEN-CODEINE #3 300-30 MG TABS 303321 ACETAMIN OPHEN-CODEINE Inactive HYDROCODONE-ACETAMINOPHEN 5-325 MG TABS 1 po q 6hr PRN cough 201 05/09/16 HYDROCODONE-ACETAMINOPHEN 5-325 MG TABS 082275 HYDROCODONE-ACETAMINOPHEN Inactive AVELOX 400 MG TABS 1 tab by mouth daily A VELOX 400 MG TABS 521364 MOXIFLOXACIN HCL Inactive CHERATUSSIN AC 100-10 MG/5ML SYRP 1 tsp by mouth every 4 hours as needed for cough CHERATUSSIN AC 100-10 MG/5ML SYRP 115482 GUAIFENESIN-CODEINE Inactive TERBINAFINE HCL 250 MG TABS 1 qDay TERBINAFINE HCL 250 MG TABS 095349 TERBINAFINE HCL Inactive CHERATUSSIN AC 100-10 MG/5ML SYRP 1 tsp by mouth every 4 hours as needed for cough CHERATUSSIN AC 100-10 MG/5ML SYRP 820641 GUAIFENESIN-CODEINE Inactive ACETAMINOPHEN-CODEINE #3 300-30 MG TABS 1 PO Q 4-6 HRS PRN PAIN ACETAMINOPHEN-CODEINE #3 300-30 MG TABS 622142 ACETAMINOPHEN-CODEIN E Inactive CHERATUSSIN AC 100-10 MG/5ML SYRP 1 tsp by mouth every 4 hours as needed for cough CHERATUSSIN AC 100-10 MG/5ML SYRP 233417 GUAIFENESIN-CODEINE Inactive AUGMENTIN 875-125 MG TAB 1 tab by mouth twice daily with food 20 12/03/31 AUGMENTIN 875-125 MG TAB 738219 AMOXICILLIN-POT CLAVULA EFE Inactive CHERATUSSIN AC 100-10 MG/5ML SYRP take one tsp po Q 6hours prn c ough CHERATUSSIN AC 100-10 MG/5ML SYRP 434778 GUAIFENESIN-CO DEINE Inactive PROPRANOLOL HCL 60 MG TABS 1 PO Q D P ROPRANOLOL HCL 60 MG TABS 214528 PROPRANOLOL HCL Inactive TOPAMAX 50 MG TABS take 1 tab po BID for migraines. 12/07/10 TOPAMAX 50 MG TABS 244807 TOPIRAMATE Inactive TOPAMAX 25 MG TABS 1 qHS x 1 week, then 1 BID x 1 week, then 1 qAM and 2 qHS x 1 week, then 2 BID (migraine prevention) TOPAMAX 2 5 MG TABS 389581 TOPIRAMATE Inactive LYRICA 75 MG CAPS TAKE 1 CAPSULE BY MOUTH TWICE DAILY LYRICA 75 MG CAPS PREGABALIN Inactive SYMBICORT 160-4.5 MCG/ACT AERO 2 puffs bid with rinse after 2011 SYMBICORT 160-4.5 MCG/ACT AERO BUDESONIDE-FORMOT SÁNCHEZ FUMARATE Inactive PROMETHAZINE-CODEINE 6.25-10 MG/5ML SYRP 1 tsp by mouth ever y 8 hours prn cough PROMETHAZINE-CODEINE 6.25-10 MG/5ML SYRP 139207 PROMETHAZINE-CODEINE Inactive CYMBALTA 30 MG CPEP 1 cap by mouth daily CYMBALTA 30 MG CPEP 958255 DULOXETINE HCL Inactive PREMARIN 0.625 MG TABS TAKE 1 TAB BY MOUTH DAILY 07/25 PREMARIN 0.625 MG TABS ESTROGENS CONJUGATED Inactive CHERATUSSIN AC 100-10 MG/5ML SYRP 1 tsp by mouth every 4 hours as needed for cough CHERATUSSIN AC 100-10 MG/5ML SYRP 685907 GUAIFENESIN-CODEINE Inactive PROMETHAZINE-CODEINE 6.25-10 MG/5ML SYRP 1 tsp by mout h every 6 hours if needed for cough PROMETHAZINE-CODEINE 6.25-10 MG/5ML SYRP 338365 PROMETHAZINE-CODEINE Inactive CHERATUSSIN AC 100-10 MG/5ML SYRP 1 tsp by mouth every 4 hours as needed for cough CHERATUSSIN AC 100-10 MG/5ML SYRP 903865 GUAIFENESIN-CODEINE Inactive FLUTICASONE PROPIONATE 50 MCG/ACT SUSP 1 to 2 sprays each no stril daily FLUTICASONE PROPIONATE 50 MCG/ACT SUSP 1286381 FLUTICASONE PROPIONATE Inactive PREDNISONE 20 MG ORAL TABS 3 tab PO qd x 2d, 2 tab PO qd x 2d, 1 tab PO qd x 2d, 1/2 tab PO qd x 2d PREDNISONE 20 MG ORAL TABS 246192 PREDNISONE Inactive LEVOFLOXACIN 500 MG ORAL TABS 1 tab PO daily x 10 days LEVOFLOXACIN 500 MG ORAL TABS 024874 LEVOFLOXACIN Inactive CYCLOBENZAPRINE HCL 10 MG TABS 1 tablet by mouth BID prn had cherelle n CYCLOBENZAPRINE HCL 10 MG TABS 371408 CYCLOBENZAPRINE H CL Inactive ZOCOR 40 MG TAB 1 tab by mouth daily ZOCOR 40 M G TAB 882549 SIMVASTATIN Inactive TUSSIONEX PENNKINETIC ER 10-8 MG/5ML [...] empty FLUTICASONE PROPIONATE 50 MCG/ACT SUSP 17 18593 FLUTICASONE PROPIONATE Inactive TUSSIONEX PENNKINETIC ER 10-8 MG/5ML ORAL LQCR 5 mL PO q 12 hrs PRN cough TUSSIONEX PENNKINETIC ER 10-8 MG/5ML ORAL LQCR HYDROCOD POLST-CHLORPHEN POLST Inactive ZITHROMAX Z-REYNA 250 MG TABS 2 today, then 1 daily for 4 days 201 04/09/17 ZITHROMAX Z-REYNA 250 MG TABS 0069236 AZITHROMYCIN Inac tive CEFDINIR 300 MG CAPS [...] q days 2-5 ZITHROMAX 250 MG TAB 5442297 AZITHROMYCIN Inactive CEFDINIR 300 MG CAPS by mouth twice a day CEFDINIR 300 MG CAPS 20020704 CEFDINIR Inactive PREDNISONE 20 MG TAB 2 tabs daily for 3 days, 1 t ab daily for 3 days, 1/2 tab daily for 2 days PREDNISONE 20 MG TAB 579741 PREDNISON E Inactive AVELOX 400 MG TABS 1 tab by mouth daily A VELOX 400 MG TABS 285420 MOXIFLOXACIN HCL Inactive AVELOX 400 MG TABS 1 tab by mouth daily A VELOX 400 MG TABS 037770 MOXIFLOXACIN HCL Inactive PREDNISONE 20 MG TAB Take 3 tabs daily for 3 days , 2 tabs daily for 3 days, 1 tab daily for 3 days, 1/2 tab daily for 3 days PREDNISONE 20 MG TAB 178166 PREDNISONE Inactive LEVAQUIN 500 MG TABS take one po QD LEVAQUIN 50 0 MG TABS 717044 LEVOFLOXACIN Inactive AZITHROMYCIN 250 MG TABS 2 po qd x 1 day, then 1 po qd x 4 days AZITHROMYCIN 250 MG TABS 5626974 AZITHROMYCIN Inactiv e MEDROL (REYNA) 4 MG TABS 6 tabs on day 1, 5 tabs on d ay 2, 4 tabs on day 3, 3 tabs on day 4, 2 tabs on day 5, 1 tab on day 6 MEDROL (REYNA) 4 MG TABS 698449 METHYLPREDNISOLONE Inactive CHERATUSSIN AC 100-10 MG/5ML SYRP 5ml po q6hr PRN Cough CHERATUSSIN AC 100-10 MG/5ML SYRP 745926 GUAIFENESIN-CODEINE Inacti ve TRIAMCINOLONE ACETONIDE 0.1 % CREA apply three times daily prn r beatrice TRIAMCINOLONE ACETONIDE 0.1 % CREA 1824721 TRIAMCINOLONE ACETONIDE Inactive AZITHROMYCIN 250 MG TABS 2 po qd x 1 day, then 1 po qd x 4 days AZITHROMYCIN 250 MG TABS 5039145 AZITHROMYCIN Inactiv e MEDROL (REYNA) 4 MG TABS 6 pills x 1 day, then 5 pill s x 1 day then 4 pills x 1 day, then 3 pills x 1 day, then 2 pills x 1 day, then 1 pill x 1 day, then stop MEDROL (REYNA) 4 MG TABS 802465 METHYLPREDNISOLONE Inactive AMOXICILLIN 500 MG CAP 1 tab by mouth 3 times daily x 10 days 20 13/03/08 AMOXICILLIN 500 MG CAP 518622 AMOXICILLIN Inactive AMOXICILLIN 500 MG CAP 1 tab by mouth 3 times daily x 10 days 20 14/04/28 AMOXICILLIN 500 MG CAP 929105 AMOXICILLIN Inactive ZITHROMAX 250 MG TAB 2 po today, then 1 po q days 2-5 ZITHROMAX 250 MG TAB 8316582 AZITHROMYCIN Inactive AUGMENTIN 875-125 MG TAB 1 po BID x 10 days AUGMENTIN 875- 125 MG TAB 779066 AMOXICILLIN-POT CLAVULANATE Inactive ZITHROMAX Z-REYNA 250 MG TABS 2 today, then 1 daily for 4 days 201 08/07/20 ZITHROMAX Z-REYNA 250 MG TABS 9606224 AZITHROMYCIN Inac tive ZITHROMAX 250 MG TAB 2 po today, then 1 po q days 2-5 ZITHROMAX 250 MG TAB 1125841 AZITHROMYCIN Inactive ZITHROMAX Z-REYNA 250 MG TABS 2 today, then 1 daily for 4 days 201 08/30/03 ZITHROMAX Z-REYNA 250 MG TABS 4871192 AZITHROMYCIN Inac tive CEFDINIR 300 MG CAPS 1 po BID x 10 days C EFDINIR 300 MG CAPS 303827 CEFDINIR Inactive ZITHROMAX 250 MG TAB 2 po today, then 1 po q days 2-5 ZITHROMAX 250 MG TAB 6017291 AZITHROMYCIN Inactive LEVAQUIN 500 MG TAB 1 tablet by mouth daily LEVAQUIN 500 MG TAB 675591 LEVOFLOXACIN Inactive SINGULAIR 10 MG TABS 1 po qday for allergies 2 SINGULAIR 10 MG TABS 20010504 MONTELUKAST SODIUM Inactive AMOXICILLIN 500 MG CAPS 2 po BID x 10 days AMOXICILLIN 500 MG CAPS 763183 AMOXICILLIN Inactive PREDNISONE 20 MG TAB 2 tabs daily for 3 days, 1 t ab daily for 3 days, 1/2 tab daily for 2 days PREDNISONE 20 MG TAB 545420 PREDNISON E Inactive ZITHROMAX Z-REYNA 250 MG TABS 2 today, then 1 daily for 4 days 201 09/29/14 ZITHROMAX Z-REYNA 250 MG TABS 1165887 AZITHROMYCIN Inac tive Vital Signs Date Name [...] Measured Encounters Code Encounter Date Provider Facility CPT-94683 Level 3 Est. Patient 13:42:38 CDT Italo [facility] CPT-16325 Level 3 Est. Patient 13:23:51 CDT Diya cobian [facility] CPT-56302 Level 3 Est. Patient 14:22:19 EMISSIONS TESTING AND REPAIR TECHNICIAN Diya cobian [facility] CPT-11310 Level 3 Est. Patient 10:11:46 CDT Carlton rich MD [facility] CPT-62939 Level 3 Est. Patient 17:29:43 CDT Italo [facility] CPT-50093 Level 3 Est. Patient 11:58:06 CDT Elise Cesar chelly BILL [facility]-48011 Level 4 Est. Patient 14:36:51 CDT Carlton rich MD [facility]-87646 Level 3 Est. Patient 18:16:00 EMISSIONS TESTING AND REPAIR TECHNICIAN Blaine [facility]-83066 Level 3 Est. Patient 09:45:49 EMISSIONS TESTING AND REPAIR TECHNICIAN Carlton rich MD [facility]-83872 Level 3 Est. Patient 13:19:20 CDT Carlton rich MD [facility]-27198 Level 3 Est. Patient 13:06:43 CDT Ridge tam DO [facility] CPT-19699 Level 3 Est. Patient 10:03:07 CDT Perez Mora MD [facility]-67977 Level 3 Est. Patient 19:50:35 EMISSIONS TESTING AND REPAIR TECHNICIAN Carlton rich MD [facility]-03431 Level 4 Est. Patient 18:05:01 EMISSIONS TESTING AND REPAIR TECHNICIAN Carlton rich MD [facility]-27518 Level 3 Est. Patient 10:45:55 EMISSIONS TESTING AND REPAIR TECHNICIAN Hugo Restrepo MD [facility]-27177 Level 3 Est. Patient 14:12:49 CDT Griffin lincoln [facility]-53638 Level 3 Est. Patient 17:37:24 CDT Carlton rich MD [facility]-90483 Level 3 Est. Patient 16:51:54 CDT Carlton rich MD [facility]-77380 Level 3 Est. Patient 12:18:11 CDT Hugo Restrepo MD [facility]-38828 Level 3 Est. Patient 11:30:25 CDT Marcy crisostomo MD PhD [facility] CPT-00366 Level 3 Est. Patient 12:00:47 EMISSIONS TESTING AND REPAIR TECHNICIAN Carlton rich MD [facility] CPT-90947 Level 3 Est. Patient 16:31:06 EMISSIONS TESTING AND REPAIR TECHNICIAN Carlton rich MD [facility] CPT-14300 Level 3 Est. Patient 16:23:24 EMISSIONS TESTING AND REPAIR TECHNICIAN Ridge tam [facility] CPT-34490 Level 3 Est. Patient 12:34:12 CDT Carlton rich MD [facility] CPT-41385 Level 2 Est. Patient 15:43:33 CDT Robi armstrong MD [facility] CPT-38745 Level 4 Est. Patient 14:04:44 CDT Carlton rich MD [facility] CPT-50968 Level 3 Est. Patient 05:47:59 CDT Ridge tam [facility] CPT-14820 Level 3 Est. Patient 13:12:53 EMISSIONS TESTING AND REPAIR TECHNICIAN Carlton rich MD [facility] CPT-81594 Level 3 Est. Patient 14:26:53 CDT Hugo Restrepo MD [facility] Procedures Code Procedure Name Date Entry Date Standard Desc ription CPT-J0696 Rocephin 1gm Inj Solr 14:32:13 CDT CPT-J1020 Depo Medrol 60 mg (Methyl Prednisolone A cetate) 14:32:13 CDT CPT-J1100 Decadron 6mg (Dexamethasone) 14:32:13 CDT 2 CPT-84698 Hip bilat min 2V w AP pelvis 13:16:20 CDT 2 CPT-27034 Pelvis only 13:07:33 CDT CPT-62726 Spec Collection and Handling Fee 11:25:12 C DT CPT-66554 Fluzone Quadrivalent Intramuscular Suspe nsion 0.5 ML 14:31:55 CDT CPT-90436 Abx/Therapy Injection 13:28:47 EMISSIONS TESTING AND REPAIR TECHNICIAN CPT-J2930 Solu Medrol 125 mg (Methyl Prednisolone Sodium Succinate) 12:00:47 EMISSIONS TESTING AND REPAIR TECHNICIAN CPT-48832 Venipuncture Draw Fee 11:33:31 CDT CPT-99828 EKG Trac and Interp 11:21:09 CDT CPT-91286 Chest 2V Frontal and Lat 11:21:09 CDT 12/15 CPT-82672 Venipuncture Draw Fee 08:02:34 CDT CPT-92025 Chest 2V Frontal and Lat 05:47:59 CDT 06/05
--- OUTSIDE RECORDS SUMMARY | 2019-10-08 08:17 | XMS REPORT | Clinical Summary ---
Author Author Caitlin, Juliana Martinez Organization [facility] Address Unknown Phone Unavailable Allergies, Adverse Reactions, Alerts Allergy Name Reaction Description Start Date Severity Status Pr ovider No Known Allergies Mercy Santos LPN Conditions or Problems Problem Name Problem [...] sites Sinusitis 473.9 Active Diya De Guzman ONLINE PUBLISHER Unspecified sinusitis (chronic) Bronchitis-Acute 466.0 Active Carlton Hu MD Acute bronchitis URI - acute 465.9 Active Elise Whitmore ONLINE PUBLISHER Acute upper respiratory infections of unspecified site [...] 1 tablet by mouth daily LEV OFLOXACIN 54563334887 No Longer Active Carlton Hu MD Active FLUTICASONE PROPIONATE 50 MCG/ACT SUSP 2 sprays each n ostril daily for 2 weeks, then 1 spray each nostril daily. FLUTICASONE PRO PIONATE 74877615174 Active Elise Whitmore APRN Active ZITHROMAX 250 MG TAB 2 po today, then 1 po q days 2-5 AZITHROMYCIN 25101674655 No Longer Active Elise Whitmore APRN Acti ve XANAX 0.5 MG TABS one tablet by mouth daily prn anxiety ALPRAZOLAM 76193843154 Active Carlton Hu MD Active CYMBALTA 30 MG CPEP 1 cap by mouth daily for depression DULOXETINE HCL 92176149282 Active Carlton Hu MD Active CEFDINIR 300 MG CAPS 1 po BID x 10 days CEFDINI R 15945031002 No Longer Active Carlton Hu MD Active ZOCOR 40 MG TAB 1 tab by mouth daily SIMVASTATI N 37587249660 No Longer Active Carlton Hu MD Active CYCLOBENZAPRINE HCL 10 MG TABS 1 tablet by mouth BID prn had cherelle n CYCLOBENZAPRINE HCL 49545703346 No Longer Active Carlton uH MD Active LEVOFLOXACIN 500 MG ORAL TABS 1 tab PO daily x 10 days LEVOFLOXACIN 30646408908 No Longer Active Carlton Hu MD Acti ve PREDNISONE 20 MG ORAL TABS 3 tab PO qd x 2d, 2 tab PO qd x 2d, 1 tab PO qd x 2d, 1/2 tab PO qd x 2d PREDNISONE 07592070994 No Longer Active Carlton Hu MD Active TUSSIONEX PENNKINETIC ER 10-8 MG/5ML ORAL LQCR 5 mL PO q 12 hrs PRN cough HYDROCOD POLST-CHLORPHEN POLST 38000969888 Active Zo meeks Active FLUTICASONE PROPIONATE 50 MCG/ACT SUSP 1 to 2 sprays each no stril daily FLUTICASONE PROPIONATE 99169084371 No Longer Active T jaz HENRANDEZ Active CHERATUSSIN AC 100-10 MG/5ML SYRP 1 tsp by mouth every 4 hours as needed for cough GUAIFENESIN-CODEINE 98154287794 No Longer Activ e Blaine HERNANDEZ Active PROMETHAZINE-CODEINE 6.25-10 MG/5ML SYRP 1 tsp by mout h every 6 hours if needed for cough PROMETHAZINE-CODEINE 33493445960 No Long er Active Blaine HERNANDEZ Active CHERATUSSIN AC 100-10 MG/5ML SYRP 1 tsp by mouth every 4 hours as needed for cough GUAIFENESIN-CODEINE 67584022159 No Longer Activ e Blaine HERNANDEZ Active ZITHROMAX Z-REYNA 250 MG TABS 2 today, then 1 daily for 4 days 201 08/30/03 AZITHROMYCIN 61646190147 No Longer Active Columba Raida Act nael ZITHROMAX 250 MG TAB 2 po today, then 1 po q days 2-5 AZITHROMYCIN 99210878523 No Longer Active Carlton Hu MD Acti ve ZITHROMAX Z-REYNA 250 MG TABS 2 today, then 1 daily for 4 days 201 08/07/20 AZITHROMYCIN 61111388013 No Longer Active Columba Raida Act nael AUGMENTIN 875-125 MG TAB 1 po BID x 10 days AMOXICILLIN- POT CLAVULANATE 60177097688 No Longer Active Diya De Guzman APRN Active ZITHROMAX 250 MG TAB 2 po today, then 1 po q days 2-5 AZITHROMYCIN 41422629899 No Longer Active Carlton Hu MD Acti ve TRAMADOL HCL 50 MG TABS 1 po tid with ES Tylenol TRAMADOL HCL 09434858710 Active Carlton Hu MD Active PREMARIN 0.625 MG TABS TAKE 1 TAB BY MOUTH DAILY 07/25 ESTROGENS CONJUGATED 53188397489 No Longer Active Ridge Bess DO Active CYMBALTA 30 MG CPEP 1 cap by mouth daily DULOXE SNEHA HCL 07612049297 No Longer Active Ridge Bess DO Active AMOXICILLIN 500 MG CAP 1 tab by mouth 3 times daily x 10 days 20 14/04/28 AMOXICILLIN 35793800769 No Longer Active Carlton Hu MD Active AMOXICILLIN 500 MG CAP 1 tab by mouth 3 times daily x 10 days 20 13/03/08 AMOXICILLIN 38204556673 No Longer Active Carlton Hu MD Active PROMETHAZINE-CODEINE 6.25-10 MG/5ML SYRP 1 tsp by mouth ever y 8 hours prn cough PROMETHAZINE-CODEINE 21281421323 No Longer Active Robert Hu MD Active MEDROL (REYNA) 4 MG TABS 6 pills x 1 day, then 5 pill s x 1 day then 4 pills x 1 day, then 3 pills x 1 day, then 2 pills x 1 day, then 1 pill x 1 day, then stop METHYLPREDNISOLONE 47536193820 No Longer Active Parris Mora MD Active AZITHROMYCIN 250 MG TABS 2 po qd x 1 day, then 1 po qd x 4 days AZITHROMYCIN 66168960089 No Longer Active Perez Mora MD Active SYMBICORT 160-4.5 MCG/ACT AERO 2 puffs bid with rinse after 2011 BUDESONIDE-FORMOTEROL FUMARATE 51359138495 No Longer Active Perez Mora MD Active LYRICA 75 MG CAPS TAKE 1 CAPSULE BY MOUTH TWICE DAILY 2013 PREGABALIN 48943483459 No Longer Active Carlton Hu MD Active LYRICA 100 MG CAPS Take 1 tab po BID for fibromyalgia PREGABALIN 45010635922 Active Elise Whitmore APRN Active TOPAMAX 25 MG TABS 1 qHS x 1 week, then 1 BID x 1 week, then 1 qAM and 2 qHS x 1 week, then 2 BID (migraine prevention) TOPIRAMAT E 27744466321 No Longer Active Jericacatrachita FUENTES Active TOPAMAX 50 MG TABS take 1 tab po BID for migraines. 12/07/10 TOPIRAMATE 47540933942 No Longer Active Jerica FUENTES Ac tive TOPAMAX 100 MG TABS Take 1 tablet po bid TOPIRAMATE 4999 0357540 Active Carlton Hu MD Active TRIAMCINOLONE ACETONIDE 0.1 % CREA apply three times daily prn r beatrice TRIAMCINOLONE ACETONIDE 67825822724 No Longer Active Carlton Hu MD Active PAXIL 40 MG TAB take 1 tab po qday for depression PAROXETINE HCL 64475678956 Active Elise Whitmore ONLINE PUBLISHER Active CHERATUSSIN AC 100-10 MG/5ML SYRP 5ml po q6hr PRN Cough GUAIFENESIN-CODEINE 11026078939 No Longer Active Carlton Hu MD Active MEDROL (REYNA) 4 MG TABS 6 tabs on day 1, 5 tabs on d ay 2, 4 tabs on day 3, 3 tabs on day 4, 2 tabs on day 5, 1 tab on day 6 METHYLPREDNISOLONE 72361581695 No Longer Active Perez Mora MD Active AZITHROMYCIN 250 MG TABS 2 po qd x 1 day, then 1 po qd x 4 days AZITHROMYCIN 31566676596 No Longer Active Perez Mora MD Active PROPRANOLOL HCL 60 MG TABS 1 PO Q D PROPRANOL OL HCL 54369862745 No Longer Active Perez Mora MD Active CHERATUSSIN AC 100-10 MG/5ML SYRP take one tsp po Q 6hours prn c ough GUAIFENESIN-CODEINE 63812216256 No Longer Active Perez Means Active AUGMENTIN 875-125 MG TAB 1 tab by mouth twice daily with food 20 12/03/31 AMOXICILLIN-POT CLAVULANATE 60861272069 No Longer Active Chanel Mora MD Active CHERATUSSIN AC 100-10 MG/5ML SYRP 1 tsp by mouth every 4 hours as needed for cough GUAIFENESIN-CODEINE 02889225742 No Longer Activ e Hugo Restrepo MD Active ACETAMINOPHEN-CODEINE #3 300-30 MG TABS 1 PO Q 4-6 HRS PRN PAIN ACETAMINOPHEN-CODEINE 17415220507 No Longer Active Hugo Restrepo MD Active LEVAQUIN 500 MG TABS take one po QD LEVOFLOXACI N 27845434987 No Longer Active Griffin HERNANDEZ Active PREDNISONE 20 MG TAB Take 3 tabs daily for 3 days , 2 tabs daily for 3 days, 1 tab daily for 3 days, 1/2 tab daily for 3 days P REDNISONE 05876195061 No Longer Active Carlton Hu MD Active AVELOX 400 MG TABS 1 tab by mouth daily MOXIFLO XACIN HCL 26537345184 No Longer Active Carlton Hu MD Active CHERATUSSIN AC 100-10 MG/5ML SYRP 1 tsp by mouth every 4 hours as needed for cough GUAIFENESIN-CODEINE 94033813057 No Longer Activ e Hugo Restrepo MD Active AVELOX 400 MG TABS 1 tab by mouth daily MOXIFLO XACIN HCL 54290825492 No Longer Active Marcy De La Rosa MD PhD Active TERBINAFINE HCL 250 MG TABS 1 qDay TERBINAF INE HCL 61726324209 No Longer Active Marcy De La Rosa MD PhD Active CHERATUSSIN AC 100-10 MG/5ML SYRP 1 tsp by mouth every 4 hours as needed for cough GUAIFENESIN-CODEINE 71852628236 No Longer Activ e Marcy De La Rosa MD PhD Active AVELOX 400 MG TABS 1 tab by mouth daily MOXIFLO XACIN HCL 08456192011 No Longer Active Marcy De La Rosa MD PhD Active HYDROCODONE-ACETAMINOPHEN 5-325 MG TABS 1 po q 6hr PRN cough 201 05/09/16 HYDROCODONE-ACETAMINOPHEN 65009310924 No Longer Active Marcy De La Rosa MD PhD Active PREDNISONE 20 MG TAB 2 tabs daily for 3 days, 1 t ab daily for 3 days, 1/2 tab daily for 2 days PREDNISONE 76613061908 No Longer Active Carlton Hu MD Active CEFDINIR 300 MG CAPS by mouth twice a day CEFDI ODILIA 61964599793 No Longer Active Carlton Hu MD Active HYDROCHLOROTHIAZIDE 25 MG TABS 1 TAB PO DAILY H YDROCHLOROTHIAZIDE 40943955279 Active Carlton Hu MD Active ACETAMINOPHEN-CODEINE #3 300-30 MG TABS 1 tablet po q 4-6hrs prn pain ACETAMINOPHEN-CODEINE 93140330921 No Longer Active Ridge Bess DO Active ZITHROMAX 250 MG TAB 2 po today, then 1 po q days 2-5 AZITHROMYCIN 84177996251 No Longer Active Carlton Hu MD Acti ve CHERATUSSIN AC 100-10 MG/5ML SYRP take 1 tsp po q4-6 hours prn c ough GUAIFENESIN-CODEINE 74349836244 No Longer Active Carlton Hu MD Active ACETAMINOPHEN-CODEINE #3 300-30 MG TABS 1 PO Q 4-6 HR PRN PAIN 2 ACETAMINOPHEN-CODEINE 24388769776 No Longer Active Carlton rich MD Active LORTAB 7.5-500 MG/15ML ELIX 7.5 ml po q 4 hour prn cough HYDROCODONE-ACETAMINOPHEN 83127979827 No Longer Active Carlton Hu MD Active PREDNISONE 20 MG TAB 1 po bid 3 days, then 1 po q day 3 days 201 05/03/07 PREDNISONE 03356819369 No Longer Active Carlton Hu MD Active ELMIRON 100 MG CAPS 2 tablets in the am and 1 tablet at hs PENTOSAN POLYSULFATE SODIUM 83968514682 Active Carlton Hu MD Ac tive CEFDINIR 300 MG CAPS by mouth twice a day CEFDI ODILIA 38937550733 No Longer Active Carlton Hu MD Active CEFDINIR 300 MG CAPS by mouth twice a day CEFDI ODILIA 97208708690 No Longer Active Carlton Hu MD Active CEFDINIR 300 MG CAPS by mouth twice a day CEFDI ODILIA 82964276538 No Longer Active Carlton Hu MD Active TESSALON PERLES 100 MG CAP 1 tablet by mouth 3 times daily a s needed for cough BENZONATATE 37733646234 No Longer Active Carlton bustamante MD Active CEFDINIR 300 MG CAPS by mouth twice a day CEFDI ODILIA 28155127506 No Longer Active Carlton Hu MD Active ZITHROMAX Z-REYNA 250 MG TABS 2 today, then 1 daily for 4 days 201 04/09/17 AZITHROMYCIN 70352825021 No Longer Active Hugo Restrepo MD Active TESSALON PERLES 100 MG CAP 1 tablet by mouth 3 times daily a s needed for cough TESSALON PERLES 100 MG CAP 964026 BENZONATATE I nactive PREDNISONE 20 MG TAB 1 po bid 3 days, then 1 po q day 3 days 201 05/03/07 PREDNISONE 20 MG TAB 269482 PREDNISONE Inactive LORTAB 7.5-500 MG/15ML ELIX 7.5 ml po q 4 hour prn cough LORTAB 7.5-500 MG/15ML ELIX HYDROCODONE-ACETAMINOPHEN Inacti ve ACETAMINOPHEN-CODEINE #3 300-30 MG TABS 1 PO Q 4-6 HR PRN PAIN 2 ACETAMINOPHEN-CODEINE #3 300-30 MG TABS 194168 ACETAMIN OPHEN-CODEINE Inactive CHERATUSSIN AC 100-10 MG/5ML SYRP take 1 tsp po q4-6 hours prn c ough CHERATUSSIN AC 100-10 MG/5ML SYRP 400357 GUAIFENESIN-CO DEINE Inactive ACETAMINOPHEN-CODEINE #3 300-30 MG TABS 1 tablet po q 4-6hrs prn pain ACETAMINOPHEN-CODEINE #3 300-30 MG TABS 753240 ACETAMIN OPHEN-CODEINE Inactive HYDROCODONE-ACETAMINOPHEN 5-325 MG TABS 1 po q 6hr PRN cough 201 05/09/16 HYDROCODONE-ACETAMINOPHEN 5-325 MG TABS 485309 HYDROCODONE-ACETAMINOPHEN Inactive AVELOX 400 MG TABS 1 tab by mouth daily A VELOX 400 MG TABS 587542 MOXIFLOXACIN HCL Inactive CHERATUSSIN AC 100-10 MG/5ML SYRP 1 tsp by mouth every 4 hours as needed for cough CHERATUSSIN AC 100-10 MG/5ML SYRP 837596 GUAIFENESIN-CODEINE Inactive TERBINAFINE HCL 250 MG TABS 1 qDay TERBINAFINE HCL 250 MG TABS 229182 TERBINAFINE HCL Inactive CHERATUSSIN AC 100-10 MG/5ML SYRP 1 tsp by mouth every 4 hours as needed for cough CHERATUSSIN AC 100-10 MG/5ML SYRP 364670 GUAIFENESIN-CODEINE Inactive ACETAMINOPHEN-CODEINE #3 300-30 MG TABS 1 PO Q 4-6 HRS PRN PAIN ACETAMINOPHEN-CODEINE #3 300-30 MG TABS 401406 ACETAMINOPHEN-CODEIN E Inactive CHERATUSSIN AC 100-10 MG/5ML SYRP 1 tsp by mouth every 4 hours as needed for cough CHERATUSSIN AC 100-10 MG/5ML SYRP 169631 GUAIFENESIN-CODEINE Inactive AUGMENTIN 875-125 MG TAB 1 tab by mouth twice daily with food 20 12/03/31 AUGMENTIN 875-125 MG TAB 492076 AMOXICILLIN-POT CLAVULA EFE Inactive CHERATUSSIN AC 100-10 MG/5ML SYRP take one tsp po Q 6hours prn c ough CHERATUSSIN AC 100-10 MG/5ML SYRP 870637 GUAIFENESIN-CO DEINE Inactive PROPRANOLOL HCL 60 MG TABS 1 PO Q D P ROPRANOLOL HCL 60 MG TABS 262129 PROPRANOLOL HCL Inactive TOPAMAX 50 MG TABS take 1 tab po BID for migraines. 12/07/10 TOPAMAX 50 MG TABS 821428 TOPIRAMATE Inactive TOPAMAX 25 MG TABS 1 qHS x 1 week, then 1 BID x 1 week, then 1 qAM and 2 qHS x 1 week, then 2 BID (migraine prevention) TOPAMAX 2 5 MG TABS 661258 TOPIRAMATE Inactive LYRICA 75 MG CAPS TAKE 1 CAPSULE BY MOUTH TWICE DAILY LYRICA 75 MG CAPS PREGABALIN Inactive SYMBICORT 160-4.5 MCG/ACT AERO 2 puffs bid with rinse after 2011 SYMBICORT 160-4.5 MCG/ACT AERO BUDESONIDE-FORMOT SÁNCHEZ FUMARATE Inactive PROMETHAZINE-CODEINE 6.25-10 MG/5ML SYRP 1 tsp by mouth ever y 8 hours prn cough PROMETHAZINE-CODEINE 6.25-10 MG/5ML SYRP 488830 PROMETHAZINE-CODEINE Inactive CYMBALTA 30 MG CPEP 1 cap by mouth daily CYMBALTA 30 MG CPEP 682598 DULOXETINE HCL Inactive PREMARIN 0.625 MG TABS TAKE 1 TAB BY MOUTH DAILY 07/25 PREMARIN 0.625 MG TABS ESTROGENS CONJUGATED Inactive CHERATUSSIN AC 100-10 MG/5ML SYRP 1 tsp by mouth every 4 hours as needed for cough CHERATUSSIN AC 100-10 MG/5ML SYRP 110047 GUAIFENESIN-CODEINE Inactive PROMETHAZINE-CODEINE 6.25-10 MG/5ML SYRP 1 tsp by mout h every 6 hours if needed for cough PROMETHAZINE-CODEINE 6.25-10 MG/5ML SYRP 906777 PROMETHAZINE-CODEINE Inactive CHERATUSSIN AC 100-10 MG/5ML SYRP 1 tsp by mouth every 4 hours as needed for cough CHERATUSSIN AC 100-10 MG/5ML SYRP 876685 GUAIFENESIN-CODEINE Inactive FLUTICASONE PROPIONATE 50 MCG/ACT SUSP 1 to 2 sprays each no stril daily FLUTICASONE PROPIONATE 50 MCG/ACT SUSP 203273 FLUTICASONE PROPIONATE Inactive PREDNISONE 20 MG ORAL TABS 3 tab PO qd x 2d, 2 tab PO qd x 2d, 1 tab PO qd x 2d, 1/2 tab PO qd x 2d PREDNISONE 20 MG ORAL TABS 478094 PREDNISONE Inactive LEVOFLOXACIN 500 MG ORAL TABS 1 tab PO daily x 10 days LEVOFLOXACIN 500 MG ORAL TABS 810416 LEVOFLOXACIN Inactive CYCLOBENZAPRINE HCL 10 MG TABS 1 tablet by mouth BID prn had cherelle n CYCLOBENZAPRINE HCL 10 MG TABS 149544 CYCLOBENZAPRINE H CL Inactive ZOCOR 40 MG TAB 1 tab by mouth daily ZOCOR 40 M G TAB 410689 SIMVASTATIN Inactive ZITHROMAX Z-REYNA 250 MG TABS 2 today, then 1 daily for 4 days 201 04/09/17 ZITHROMAX Z-REYNA 250 MG TABS 0026233 AZITHROMYCIN Inac tive CEFDINIR 300 MG CAPS [...] q days 2-5 ZITHROMAX 250 MG TAB 4416440 AZITHROMYCIN Inactive CEFDINIR 300 MG CAPS by mouth twice a day CEFDINIR 300 MG CAPS 20020704 CEFDINIR Inactive PREDNISONE 20 MG TAB 2 tabs daily for 3 days, 1 t ab daily for 3 days, 1/2 tab daily for 2 days PREDNISONE 20 MG TAB 471044 PREDNISON E Inactive AVELOX 400 MG TABS 1 tab by mouth daily A VELOX 400 MG TABS 582275 MOXIFLOXACIN HCL Inactive AVELOX 400 MG TABS 1 tab by mouth daily A VELOX 400 MG TABS 505950 MOXIFLOXACIN HCL Inactive PREDNISONE 20 MG TAB Take 3 tabs daily for 3 days , 2 tabs daily for 3 days, 1 tab daily for 3 days, 1/2 tab daily for 3 days PREDNISONE 20 MG TAB 159510 PREDNISONE Inactive LEVAQUIN 500 MG TABS take one po QD LEVAQUIN 50 0 MG TABS 559203 LEVOFLOXACIN Inactive AZITHROMYCIN 250 MG TABS 2 po qd x 1 day, then 1 po qd x 4 days AZITHROMYCIN 250 MG TABS 7152254 AZITHROMYCIN Inactiv e MEDROL (REYNA) 4 MG TABS 6 tabs on day 1, 5 tabs on d ay 2, 4 tabs on day 3, 3 tabs on day 4, 2 tabs on day 5, 1 tab on day 6 MEDROL (REYNA) 4 MG TABS 890668 METHYLPREDNISOLONE Inactive CHERATUSSIN AC 100-10 MG/5ML SYRP 5ml po q6hr PRN Cough CHERATUSSIN AC 100-10 MG/5ML SYRP 251600 GUAIFENESIN-CODEINE Inacti ve TRIAMCINOLONE ACETONIDE 0.1 % CREA apply three times daily prn r beatrice TRIAMCINOLONE ACETONIDE 0.1 % CREA 5720002 TRIAMCINOLONE ACETONIDE Inactive AZITHROMYCIN 250 MG TABS 2 po qd x 1 day, then 1 po qd x 4 days AZITHROMYCIN 250 MG TABS 6944906 AZITHROMYCIN Inactiv e MEDROL (REYNA) 4 MG TABS 6 pills x 1 day, then 5 pill s x 1 day then 4 pills x 1 day, then 3 pills x 1 day, then 2 pills x 1 day, then 1 pill x 1 day, then stop MEDROL (REYNA) 4 MG TABS 599762 METHYLPREDNISOLONE Inactive AMOXICILLIN 500 MG CAP 1 tab by mouth 3 times daily x 10 days 20 13/03/08 AMOXICILLIN 500 MG CAP 042342 AMOXICILLIN Inactive AMOXICILLIN 500 MG CAP 1 tab by mouth 3 times daily x 10 days 20 14/04/28 AMOXICILLIN 500 MG CAP 921906 AMOXICILLIN Inactive ZITHROMAX 250 MG TAB 2 po today, then 1 po q days 2-5 ZITHROMAX 250 MG TAB 9888788 AZITHROMYCIN Inactive AUGMENTIN 875-125 MG TAB 1 po BID x 10 days AUGMENTIN 875- 125 MG TAB 163095 AMOXICILLIN-POT CLAVULANATE Inactive ZITHROMAX Z-REYNA 250 MG TABS 2 today, then 1 daily for 4 days 201 08/07/20 ZITHROMAX Z-REYNA 250 MG TABS 9182343 AZITHROMYCIN Inac tive ZITHROMAX 250 MG TAB 2 po today, then 1 po q days 2-5 ZITHROMAX 250 MG TAB 8073448 AZITHROMYCIN Inactive ZITHROMAX Z-REYNA 250 MG TABS 2 today, then 1 daily for 4 days 201 08/30/03 ZITHROMAX Z-REYNA 250 MG TABS 5915465 AZITHROMYCIN Inac tive CEFDINIR 300 MG CAPS 1 po BID x 10 days C EFDINIR 300 MG CAPS 976692 CEFDINIR Inactive ZITHROMAX 250 MG TAB 2 po today, then 1 po q days 2-5 ZITHROMAX 250 MG TAB 7401816 AZITHROMYCIN Inactive LEVAQUIN 500 MG TAB 1 tablet by mouth daily LEVAQUIN 500 MG TAB 164194 LEVOFLOXACIN Inactive Vital Signs Date Name Value [...] Measured Encounters Code Encounter Date Provider Facility CPT-01103 Level 3 Est. Patient 10:11:46 CDT Carlton rich MD [facility] CPT-00639 Level 3 Est. Patient 17:29:43 CDT EliseJavier [facility] CPT-77844 Level 3 Est. Patient 11:58:06 CDT Italo [facility] CPT-67110 Level 4 Est. Patient 14:36:51 CDT Carlton rich MD [facility] CPT-69382 Level 3 Est. Patient 18:16:00 ANCHOR OPERATOR Blaine HERNANDEZ [facility] CPT-70994 Level 3 Est. Patient 09:45:49 ANCHOR OPERATOR Carlton rich MD [facility] CPT-38952 Level 3 Est. Patient 13:19:20 CDT Carlton rich MD [facility] CPT-28231 Level 3 Est. Patient 13:06:43 CDT Ridge tam DO [facility]-02722 Level 3 Est. Patient 10:03:07 CDT Perez Mora MD [facility]-28729 Level 3 Est. Patient 19:50:35 ANCHOR OPERATOR Carlton rich MD [facility]-85911 Level 4 Est. Patient 18:05:01 ANCHOR OPERATOR Carlton rich MD [facility]-60406 Level 3 Est. Patient 10:45:55 ANCHOR OPERATOR Hugo Restrepo MD [facility]-86466 Level 3 Est. Patient 14:12:49 CDT Griffin HERNANDEZ [facility]-53145 Level 3 Est. Patient 17:37:24 CDT Carlton rich MD [facility]-59699 Level 3 Est. Patient 16:51:54 CDT Carlton rich MD [facility]-58568 Level 3 Est. Patient 12:18:11 CDT Hugo Restrepo MD [facility]-95594 Level 3 Est. Patient 11:30:25 CDT Marcy crisostomo MD PhD [facility]-93651 Level 3 Est. Patient 12:00:47 ANCHOR OPERATOR Carlton rich MD [facility]-22732 Level 3 Est. Patient 16:31:06 ANCHOR OPERATOR Carlton rich MD [facility] CPT-66016 Level 3 Est. Patient 16:23:24 ANCHOR OPERATOR Ridge tam DO [facility]-83625 Level 3 Est. Patient 12:34:12 CDT Carlton rich MD [facility]-37732 Level 2 Est. Patient 15:43:33 CDT Robi armstrong MD [facility]-50711 Level 4 Est. Patient 14:04:44 CDT Carlton rich MD [facility] CPT-15146 Level 3 Est. Patient 05:47:59 CDT Ridge Jaun Celeste anel DO [facility] CPT-10234 Level 3 Est. Patient 13:12:53 ANCHOR OPERATOR Carlton rich MD [facility] CPT-93437 Level 3 Est. Patient 14:26:53 CDT Hugo Restrepo MD [facility] Procedures Code Procedure Name Date Entry Date Standard Desc ription CPT-J0696 Rocephin 1gm Inj Solr 14:32:13 CDT CPT-J1020 Depo Medrol 60 mg (Methyl Prednisolone A cetate) 14:32:13 CDT CPT-J1100 Decadron 6mg (Dexamethasone) 14:32:13 CDT 2 CPT-03227 Hip bilat min 2V w AP pelvis 13:16:20 CDT 2 CPT-88981 Pelvis only 13:07:33 CDT CPT-35378 Spec Collection and Handling Fee 11:25:12 C DT CPT-88198 Fluzone Quadrivalent Intramuscular Suspe nsion 0.5 ML 14:31:55 CDT CPT-61822 Abx/Therapy Injection 13:28:47 ANCHOR OPERATOR CPT-J2930 Solu Medrol 125 mg (Methyl Prednisolone Sodium Succinate) 12:00:47 ANCHOR OPERATOR CPT-55103 Venipuncture Draw Fee 11:33:31 CDT CPT-60681 EKG Trac and Interp 11:21:09 CDT CPT-18831 Chest 2V Frontal and Lat 11:21:09 CDT 12/15 CPT-12885 Venipuncture Draw Fee 08:02:34 CDT CPT-68381 Chest 2V Frontal and Lat 05:47:59 CDT 06/05
--- OUTSIDE RECORDS SUMMARY | 2019-10-08 08:17 | XMS REPORT | Clinical Summary ---
Author Author Caitlin, Juliana Martinez Organization [facility] Address Unknown Phone Unavailable Allergies, [...] sinusitis, unspecified CALF PAIN, LEFT 729.5 Active Huog Restrepo MD Pain in limb SINUSITIS 473.9 [...] La Rosa MD PhD PNEUMONIA ICD-486 Inactive Mracy De La Rosa MD PhD 201 06/01/09 [...] po qd x 5 days P REDNISONE 30809217791 No Longer Active Perez Mora MD Active PROAIR HFA 108 (90 BASE) MCG/ACT INHALATION AEROSOL SO LUTION 2 puffs four times a day as needed ALBUTEROL SULFATE 08348595752 No Long er Active Becky FUENTES Active ASPIRIN 81 MG ORAL TABLET 1 po qd ASPIRIN 67843397719 Active Carlton Hu MD Active PREDNISONE 20 MG ORAL TABLET 1 tab twice daily for 3 d ay, then one daily for three days PREDNISONE 61696887841 No Longer Active Carlton Hu MD Active AUGMENTIN 875-125 MG ORAL TABLET 1 po BID x 10 days 20 16/03/22 AMOXICILLIN-POT CLAVULANATE 97168792146 No Longer Active Elise Garcia APRN Active TERBINAFINE HCL 250 MG ORAL TABLET 1 qDay for nail fungus 7 TERBINAFINE HCL 61534708728 No Longer Active Carlton Hu MD A ctive TUSSIONEX PENNKINETIC ER 10-8 MG/5ML ORAL SUSPENSION E XTENDED RELEASE 5ml po q12hr PRN Cough HYDROCOD POLST-CHLORPHEN POLST 41384403709 Active Carlton Hu MD Active AMOXICILLIN 500 MG ORAL CAPSULE 1 cap by mouth three times a day AMOXICILLIN 29765388630 No Longer Active Carlton Hu MD Active ELMIRON 100 MG ORAL CAPSULE 2 tablets in the am and 1 tablet at hs PENTOSAN POLYSULFATE SODIUM 77549471898 No Longer Active Robert jade Hu MD Active MUCINEX D 60-600 MG ORAL TABLET EXTENDED RELEASE 12 HOUR 1 t ab po q am PSEUDOEPHEDRINE-GUAIFENESIN 30925678799 No Longer Act nael Carlton Hu MD Active MUCINEX DM MAXIMUM STRENGTH 60-1200 MG ORAL TABLET EXT ENDED RELEASE 12 HOUR 1 tab po q am DEXTROMETHORPHAN-GUAIFENESIN 52987636879 No Longer Active Carlton Hu MD Active TUSSIONEX PENNKINETIC ER 10-8 MG/5ML ORAL SUSPENSION E XTENDED RELEASE 5ml po q12hr PRN Cough HYDROCOD POLST-CHLORPHEN POLST 5 4077103450 No Longer Active Carlton Hu MD Active POTASSIUM CHLORIDE ER 20 MEQ ORAL TABLET EXTENDED RELE ASE Take 1 by mouth 4 times daily for 7 days POTASSIUM CHLORIDE 89258538481 No Longer Active Carlton Hu MD Active ZITHROMAX 250 MG ORAL TABLET 2 po today, then 1 po q days 2-5 20 14/09/04 AZITHROMYCIN 08353407009 No Longer Active Elise Garcia APRN Active TUSSIONEX PENNKINETIC ER 10-8 MG/5ML ORAL SUSPENSION E XTENDED RELEASE 5 ml twice a day as needed for cough HYDROCOD POLST-CHLORPH EN POLST 87964680649 No Longer Active Elise Garcia APRN Active MONTELUKAST SODIUM 10 MG ORAL TABLET 1 po daily for Allergy MONTELUKAST SODIUM 26107741629 Active Carlton Hu MD Ac tive TUSSIONEX PENNKINETIC ER 10-8 MG/5ML ORAL SUSPENSION E XTENDED RELEASE 5ml po q12hr PRN Cough HYDROCOD POLST-CHLORPHEN POLST 5 7397150703 No Longer Active Hugo Restrepo MD Active GABAPENTIN 100 MG ORAL CAPSULE 1 po BID for fibromyalgia GABAPENTIN 98531538895 Active Carlton Hu MD Active LYRICA 100 MG ORAL CAPSULE Take 1 tab po BID for fibromyalgia 20 11/08/21 PREGABALIN 56157568622 No Longer Active Elise Garcia APRN A ctive PREDNISONE 20 MG ORAL TABLET 2 tabs daily for 3 days, 1 tab daily for 3 days, 1/2 tab daily for 2 days PREDNISONE 15803871858 No Longer Active Diya De Guzman APRN Active TUSSIONEX PENNKINETIC ER 10-8 MG/5ML ORAL SUSPENSION E XTENDED RELEASE 5 mL PO q 12 hrs PRN cough HYDROCOD POLST-CHLORPHEN POLST 275535 05455 No Longer Active Jillina Gege KHAN Active FLUTICASONE PROPIONATE 50 MCG/ACT NASAL SUSPENSION 2 s prays each nostril daily until bottle is empty FLUTICASONE PROPIONATE 201628623 99 No Longer Active Diya De Guzman APRN Active ASMANEX 60 METERED DOSES 220 MCG/INH INHALATION AEROSO L POWDER BREATH ACTIVATED 1 puff bid with rinse after MOMETASONE FUROATE 3834197 4102 No Longer Active Diya De Guzman APRN Active ZITHROMAX Z-REYNA 250 MG ORAL TABLET 2 today, then 1 daily for 4 d ays AZITHROMYCIN 15497037333 No Longer Active Elise Garcia APRN Active TUSSIONEX PENNKINETIC ER 10-8 MG/5ML ORAL SUSPENSION E XTENDED RELEASE 5ml po q12hr PRN Cough HYDROCOD POLST-CHLORPHEN POLST 5 4312497375 No Longer Active Elise Garcia APRN Active PREDNISONE 20 MG ORAL TABLET 2 tabs daily for 3 days, 1 tab daily for 3 days, 1/2 tab daily for 2 days PREDNISONE 21648071371 No Longer Active Diya De Guzman APRN Active AMOXICILLIN 500 MG ORAL CAPSULE 2 po BID x 10 days 201 09/29/08 AMOXICILLIN 70633421432 No Longer Active Diya De Guzman APRN Act nael SINGULAIR 10 MG ORAL TABLET 1 po qday for allergies 20 14/01/12 MONTELUKAST SODIUM 86146469527 No Longer Active Carlton Hu MD Active LEVAQUIN 500 MG ORAL TABLET 1 tablet by mouth daily 20 13/09/24 LEVOFLOXACIN 14160950019 No Longer Active Carlton Hu MD Acti ve FLUTICASONE PROPIONATE 50 MCG/ACT NASAL SUSPENSION 2 s prays each nostril daily for 2 weeks, then 1 spray each nostril daily. FLUTICASONE PROPIONATE 01651182879 Active Elise Garcia APRN Active ZITHROMAX 250 MG ORAL TABLET 2 po today, then 1 po q days 2-5 20 13/08/10 AZITHROMYCIN 91307699649 No Longer Active Elise Garcia APRN Active XANAX 0.5 MG ORAL TABLET one tablet by mouth daily prn anxiety 2015 ALPRAZOLAM 32857029591 Active Carlton Hu MD Active CYMBALTA 30 MG ORAL CAPSULE DELAYED RELEASE PARTICLES 1 cap by mouth daily for depression DULOXETINE HCL 49914940060 Active Carlton beltrán MD Active CEFDINIR 300 MG ORAL CAPSULE 1 po BID x 10 days CEFDINIR 19617087512 No Longer Active Carlton Hu MD Active ZOCOR 40 MG ORAL TABLET 1 tab by mouth daily SI MVASTATIN 34483556537 No Longer Active Carlton Hu MD Active CYCLOBENZAPRINE HCL 10 MG ORAL TABLET 1 tablet by mouth BID prn had pain CYCLOBENZAPRINE HCL 37329456407 No Longer Active Jayden Hu MD Active LEVOFLOXACIN 500 MG ORAL TABLET 1 tab PO daily x 10 days LEVOFLOXACIN 44358113729 No Longer Active Carlton Hu MD Acti ve PREDNISONE 20 MG ORAL TABLET 3 tab PO qd x 2d, 2 tab P O qd x 2d, 1 tab PO qd x 2d, 1/2 tab PO qd x 2d PREDNISONE 09618320326 No Lo nger Active Carlton Hu MD Active FLUTICASONE PROPIONATE 50 MCG/ACT NASAL SUSPENSION 1 t o 2 sprays each nostril daily FLUTICASONE PROPIONATE 41041637520 No Longer Ac tive Blaine HERNANDEZ Active CHERATUSSIN AC 100-10 MG/5ML ORAL SYRUP 1 tsp by mouth every 4 hours as needed for cough GUAIFENESIN-CODEINE 24957140763 No Longe r Active Blaine HERNANDEZ Active PROMETHAZINE-CODEINE 6.25-10 MG/5ML ORAL SYRUP 1 tsp b y mouth every 6 hours if needed for cough PROMETHAZINE-CODEINE 39225790084 No Longer Active Blaine HERNANDEZ Active CHERATUSSIN AC 100-10 MG/5ML ORAL SYRUP 1 tsp by mouth every 4 hours as needed for cough GUAIFENESIN-CODEINE 47619718321 No Longe r Active Blaine HERNANDEZ Active ZITHROMAX Z-REYNA 250 MG ORAL TABLET 2 today, then 1 daily for 4 d ays AZITHROMYCIN 82631511178 No Longer Active Columba Raida Act nael ZITHROMAX 250 MG ORAL TABLET 2 po today, then 1 po q days 2-5 20 14/03/21 AZITHROMYCIN 58155436473 No Longer Active Carlton Hu MD Active ZITHROMAX Z-REYNA 250 MG ORAL TABLET 2 today, then 1 daily for 4 d ays AZITHROMYCIN 82457131509 No Longer Active Columba Raida Act nael AUGMENTIN 875-125 MG ORAL TABLET 1 po BID x 10 days 13/01/20 AMOXICILLIN-POT CLAVULANATE 33854932649 No Longer Active Diya De Guzman APRN Active ZITHROMAX 250 MG ORAL TABLET 2 po today, then 1 po q days 2-5 20 12/08/14 AZITHROMYCIN 60621779840 No Longer Active Carlton Hu MD Active TRAMADOL HCL 50 MG ORAL TABLET 1 po tid with ES Tylenol TRAMADOL HCL 77521975459 Active Carlton Hu MD Active PREMARIN 0.625 MG ORAL TABLET TAKE 1 TAB BY MOUTH DAILY ESTROGENS CONJUGATED 56842464570 No Longer Active Ridge Bess DO A ctive CYMBALTA 30 MG ORAL CAPSULE DELAYED RELEASE PARTICLES 1 cap by mouth daily DULOXETINE HCL 20236052405 No Longer Active Ridge tam DO Active AMOXICILLIN 500 MG ORAL CAPSULE 1 tab by mouth 3 times daily x 10 days AMOXICILLIN 98505865743 No Longer Active Carlton bustamante MD Active AMOXICILLIN 500 MG ORAL CAPSULE 1 tab by mouth 3 times daily x 10 days AMOXICILLIN 25385619688 No Longer Active Carlton bustamante MD Active PROMETHAZINE-CODEINE 6.25-10 MG/5ML ORAL SYRUP 1 tsp b y mouth every 8 hours prn cough PROMETHAZINE-CODEINE 49094404516 No Longer Acti ve Carlton Hu MD Active MEDROL 4 MG ORAL TABLET THERAPY PACK 6 pills x 1 day, then 5 pills x 1 day then 4 pills x 1 day, then 3 pills x 1 day, then 2 pills x 1 day, then 1 pill x 1 day, then stop METHYLPREDNISOLONE 44806018116 No Long er Active Perez Mora MD Active AZITHROMYCIN 250 MG ORAL TABLET 2 po qd x 1 day, then 1 po q d x 4 days AZITHROMYCIN 84463299670 No Longer Active Perez Ambriz MD Active SYMBICORT 160-4.5 MCG/ACT INHALATION AEROSOL 2 puffs bid wit h rinse after BUDESONIDE-FORMOTEROL FUMARATE 90296509182 N o Longer Active Perez Mora MD Active LYRICA 75 MG ORAL CAPSULE TAKE 1 CAPSULE BY MOUTH TWICE DAILY PREGABALIN 16785053250 No Longer Active Carlton Hu MD Acti ve TOPAMAX 25 MG ORAL TABLET 1 qHS x 1 week, then 1 BID x 1 week, then 1 qAM and 2 qHS x 1 week, then 2 BID (migraine prevention) T OPIRAMATE 54779875128 No Longer Active Jerica FUENTES Active TOPAMAX 50 MG ORAL TABLET take 1 tab po BID for migraines. 07/02 TOPIRAMATE 05817797003 No Longer Active Jerica FUENTES Active TOPAMAX 100 MG ORAL TABLET Take 1 tablet po bid TO PIRAMATE 97401139376 Active Carlton Hu MD Active TRIAMCINOLONE ACETONIDE 0.1 % EXTERNAL CREAM apply three roger es daily prn rash TRIAMCINOLONE ACETONIDE 16340411729 No Longer Active Carlton Hu MD Active PAXIL 40 MG ORAL TABLET take 1 tab po qday for depression 0 PAROXETINE HCL 03507613120 Active Perez Mora MD Active CHERATUSSIN AC 100-10 MG/5ML ORAL SYRUP 5ml po q6hr PRN Cough 20 13/04/14 GUAIFENESIN-CODEINE 59761807907 No Longer Active Carlton Hu MD Active MEDROL 4 MG ORAL TABLET THERAPY PACK 6 tabs on day 1, 5 tabs on day 2, 4 tabs on day 3, 3 tabs on day 4, 2 tabs on day 5, 1 tab on day 6 2013 METHYLPREDNISOLONE 92752574221 No Longer Active Perez Mora MD Active AZITHROMYCIN 250 MG ORAL TABLET 2 po qd x 1 day, then 1 po q d x 4 days AZITHROMYCIN 19162452283 No Longer Active Perez Ambriz MD Active PROPRANOLOL HCL 60 MG ORAL TABLET 1 PO Q D PROPRANOLOL HCL 42543620541 No Longer Active Perez Mora MD Activ e CHERATUSSIN AC 100-10 MG/5ML ORAL SYRUP take one tsp po Q 6h ours prn cough GUAIFENESIN-CODEINE 67747273998 No Longer Active Zia Mora MD Active AUGMENTIN 875-125 MG ORAL TABLET 1 tab by mouth twice daily with food AMOXICILLIN-POT CLAVULANATE 11055322164 No Longer Act nael Perez Mora MD Active CHERATUSSIN AC 100-10 MG/5ML ORAL SYRUP 1 tsp by mouth every 4 hours as needed for cough GUAIFENESIN-CODEINE 90802127123 No Longe r Active Hugo Restrepo MD Active ACETAMINOPHEN-CODEINE #3 300-30 MG ORAL TABLET 1 PO Q 4-6 HRS MT N PAIN ACETAMINOPHEN-CODEINE 46740697781 No Longer Active Hugo Restrepo MD Active LEVAQUIN 500 MG ORAL TABLET take one po QD LEVO FLOXACIN 83794683250 No Longer Active Griffin HERNANDEZ Active PREDNISONE 20 MG ORAL TABLET Take 3 tabs daily for 3 d ays, 2 tabs daily for 3 days, 1 tab daily for 3 days, 1/2 tab daily for 3 days 11/07 PREDNISONE 23079626436 No Longer Active Carlton Hu MD Acti ve AVELOX 400 MG ORAL TABLET 1 tab by mouth daily MOXIFLOXACIN HCL 87478140418 No Longer Active Carlton Hu MD Active CHERATUSSIN AC 100-10 MG/5ML ORAL SYRUP 1 tsp by mouth every 4 hours as needed for cough GUAIFENESIN-CODEINE 04850928534 No Longe r Active Hugo Restrepo MD Active AVELOX 400 MG ORAL TABLET 1 tab by mouth daily MOXIFLOXACIN HCL 36152909192 No Longer Active Marcy De La Rosa MD PhD Active TERBINAFINE HCL 250 MG ORAL TABLET 1 qDay T ERBINAFINE HCL 27331679517 No Longer Active Marcy De La Rosa MD PhD Active CHERATUSSIN AC 100-10 MG/5ML ORAL SYRUP 1 tsp by mouth every 4 hours as needed for cough GUAIFENESIN-CODEINE 56026702922 No Longe r Active Marcy De La Rosa MD PhD Active AVELOX 400 MG ORAL TABLET 1 tab by mouth daily MOXIFLOXACIN HCL 51894925955 No Longer Active Marcy De La Rosa MD PhD Active HYDROCODONE-ACETAMINOPHEN 5-325 MG ORAL TABLET 1 po q 6hr PRN co ugh HYDROCODONE-ACETAMINOPHEN 32147232475 No Longer Active Marcy De La Rosa MD PhD Active PREDNISONE 20 MG ORAL TABLET 2 tabs daily for 3 days, 1 tab daily for 3 days, 1/2 tab daily for 2 days PREDNISONE 27152320593 No Longer Active Carlton Hu MD Active CEFDINIR 300 MG ORAL CAPSULE by mouth twice a day 2011 CEFDINIR 93688285555 No Longer Active Carlton Hu MD Acti ve HYDROCHLOROTHIAZIDE 25 MG ORAL TABLET 1 TAB PO DAILY HYDROCHLOROTHIAZIDE 86597984145 Active Carlton Hu MD A ctive ACETAMINOPHEN-CODEINE #3 300-30 MG ORAL TABLET 1 tablet po q 4-6 hrs prn pain ACETAMINOPHEN-CODEINE 30515872380 No Longer Active Ridge Bess DO Active ZITHROMAX 250 MG ORAL TABLET 2 po today, then 1 po q days 2-5 20 03/07/07 AZITHROMYCIN 73112077928 No Longer Active Carlton Hu MD Active CHERATUSSIN AC 100-10 MG/5ML ORAL SYRUP take 1 tsp po q4-6 h ours prn cough GUAIFENESIN-CODEINE 22866004994 No Longer Active Jayden Hu MD Active ACETAMINOPHEN-CODEINE #3 300-30 MG ORAL TABLET 1 PO Q 4-6 HR PRN PAIN ACETAMINOPHEN-CODEINE 65082851961 No Longer Active Arnol Hu MD Active LORTAB 7.5-500 MG/15ML ORAL ELIXIR 7.5 ml po q 4 hour prn cough HYDROCODONE-ACETAMINOPHEN 08834020884 No Longer Active Carlton Hu MD Active PREDNISONE 20 MG ORAL TABLET 1 po bid 3 days, then 1 po q day 3 days PREDNISONE 62134798726 No Longer Active Carlton Hu MD Active CEFDINIR 300 MG ORAL CAPSULE by mouth twice a day 2011 CEFDINIR 99170952833 No Longer Active Carlton Hu MD Acti ve CEFDINIR 300 MG ORAL CAPSULE by mouth twice a day 2010 CEFDINIR 19761946065 No Longer Active Carlton Hu MD Acti ve CEFDINIR 300 MG ORAL CAPSULE by mouth twice a day 2010 CEFDINIR 94357333910 No Longer Active Carlton Hu MD Acti ve TESSALON PERLES 100 MG ORAL CAPSULE 1 tablet by mouth 3 times daily as needed for cough BENZONATATE 91748429228 No Longer Active Carlton Hu MD Active CEFDINIR 300 MG ORAL CAPSULE by mouth twice a day 2010 CEFDINIR 72097077352 No Longer Active Carlton Hu MD Acti ve ZITHROMAX Z-REYNA 250 MG ORAL TABLET 2 today, then 1 daily for 4 d ays AZITHROMYCIN 54433709234 No Longer Active Hugo Restrepo MD Active TESSALON PERLES 100 MG ORAL CAPSULE 1 tablet by mouth 3 times daily as needed for cough TESSALON PERLES 100 MG ORAL CAPSULE 29848 7 BENZONATATE Inactive PREDNISONE 20 MG ORAL TABLET 1 po bid 3 days, then 1 po q day 3 days PREDNISONE 20 MG ORAL TABLET 515789 PREDNISONE Sinclair ctive LORTAB 7.5-500 MG/15ML ORAL ELIXIR 7.5 [...] cough CHERATUSSIN AC 100-10 MG/5ML ORAL SYRUP 651034 GUAIFENESIN-CODEINE Inactive ACETAMINOPHEN-CODEINE #3 300-30 MG ORAL TABLET 1 tablet po q 4-6 hrs prn pain ACETAMINOPHEN-CODEINE #3 300-30 MG ORAL TABLET ACETAMINOPHEN-CODEINE Inactive HYDROCODONE-ACETAMINOPHEN 5-325 MG ORAL TABLET 1 po q 6hr PRN co ugh HYDROCODONE-ACETAMINOPHEN 5-325 MG ORAL TABLET 963239 HYDROCODONE-ACETAMINOPHEN Inactive AVELOX 400 MG ORAL TABLET 1 tab by mouth daily AVELOX 400 MG ORAL TABLET 739524 MOXIFLOXACIN HCL Inactive CHERATUSSIN AC 100-10 MG/5ML ORAL SYRUP 1 tsp by mouth every 4 hours as needed for cough CHERATUSSIN AC 100-10 MG/5ML ORAL SYRUP 9 57259 GUAIFENESIN-CODEINE Inactive TERBINAFINE HCL 250 MG ORAL TABLET 1 qDay 07/08 TERBINAFINE HCL 250 MG ORAL TABLET 244031 TERBINAFINE HCL Inactive CHERATUSSIN AC 100-10 MG/5ML ORAL SYRUP 1 tsp by mouth every 4 hours as needed for cough CHERATUSSIN AC 100-10 MG/5ML ORAL SYRUP 9 44484 GUAIFENESIN-CODEINE Inactive ACETAMINOPHEN-CODEINE #3 300-30 MG ORAL TABLET 1 PO Q 4-6 HRS MT N PAIN ACETAMINOPHEN-CODEINE #3 300-30 MG ORAL TABLET ACETAMINOPHEN-CODEINE Inactive CHERATUSSIN AC 100-10 MG/5ML ORAL SYRUP 1 tsp by mouth every 4 hours as needed for cough CHERATUSSIN AC 100-10 MG/5ML ORAL SYRUP 9 77586 GUAIFENESIN-CODEINE Inactive AUGMENTIN 875-125 MG ORAL TABLET 1 tab by mouth twice daily with food AUGMENTIN 875-125 MG ORAL TABLET 700181 AMOXICIL MADELINE-POT CLAVULANATE Inactive CHERATUSSIN AC 100-10 MG/5ML ORAL SYRUP take one tsp po Q 6h ours prn cough CHERATUSSIN AC 100-10 MG/5ML ORAL SYRUP 405083 GUAIFENESIN-CODEINE Inactive PROPRANOLOL HCL 60 MG ORAL TABLET 1 PO Q D PROPRANOLOL HCL 60 MG ORAL TABLET 542011 PROPRANOLOL HCL Inactive TOPAMAX 50 MG ORAL TABLET take 1 tab po BID for migraines. 07/02 TOPAMAX 50 MG ORAL TABLET 906725 TOPIRAMATE Inacti ve TOPAMAX 25 MG ORAL TABLET 1 qHS x 1 week, then 1 BID x 1 week, then 1 qAM and 2 qHS x 1 week, then 2 BID (migraine prevention) TOPAMAX 25 MG ORAL TABLET 825568 TOPIRAMATE Inactive LYRICA 75 MG ORAL CAPSULE TAKE 1 CAPSULE BY MOUTH TWICE DAILY LYRICA 75 MG ORAL CAPSULE PREGABALIN Inactive SYMBICORT 160-4.5 MCG/ACT INHALATION AEROSOL 2 puffs bid wit h rinse after SYMBICORT 160-4.5 MCG/ACT INHALATION AEROSOL BUDESONIDE- FORMOTEROL FUMARATE Inactive PROMETHAZINE-CODEINE 6.25-10 MG/5ML ORAL SYRUP 1 tsp b y mouth every 8 hours prn cough PROMETHAZINE-CODEINE 6.25-10 MG/ 5ML ORAL SYRUP 207103 PROMETHAZINE-CODEINE Inactive CYMBALTA 30 MG ORAL CAPSULE DELAYED RELEASE PARTICLES 1 cap by mouth daily CYMBALTA 30 MG ORAL CAPSULE DELAYED RELE ASE PARTICLES 821116 DULOXETINE HCL Inactive PREMARIN 0.625 MG ORAL TABLET TAKE 1 TAB BY MOUTH DAILY PREMARIN 0.625 MG ORAL TABLET ESTROGENS CONJUGATED Inactive CHERATUSSIN AC 100-10 MG/5ML ORAL SYRUP 1 tsp by mouth every 4 hours as needed for cough CHERATUSSIN AC 100-10 MG/5ML ORAL SYRUP 9 10883 GUAIFENESIN-CODEINE Inactive PROMETHAZINE-CODEINE 6.25-10 MG/5ML ORAL SYRUP 1 tsp b y mouth every 6 hours if needed for cough PROMETHAZINE-CODEINE 6.25-10 MG/5ML ORAL SYRUP 851431 PROMETHAZINE-CODEINE Inactive CHERATUSSIN AC 100-10 MG/5ML ORAL SYRUP 1 tsp by mouth every 4 hours as needed for cough CHERATUSSIN AC 100-10 MG/5ML ORAL SYRUP 9 99054 GUAIFENESIN-CODEINE Inactive FLUTICASONE PROPIONATE 50 MCG/ACT NASAL SUSPENSION 1 t o 2 sprays each nostril daily FLUTICASONE PROPIONATE 50 MCG/AC T NASAL SUSPENSION 9766599 FLUTICASONE PROPIONATE Inactive PREDNISONE 20 MG ORAL TABLET 3 tab PO qd x 2d, 2 tab P O qd x 2d, 1 tab PO qd x 2d, 1/2 tab PO qd x 2d PREDNISONE 20 MG ORAL TAB LET 105140 PREDNISONE Inactive LEVOFLOXACIN 500 MG ORAL TABLET 1 tab PO daily x 10 days LEVOFLOXACIN 500 MG ORAL TABLET 720933 LEVOFLOXACIN Inactive CYCLOBENZAPRINE HCL 10 MG ORAL TABLET 1 tablet by mouth BID prn had pain CYCLOBENZAPRINE HCL 10 MG ORAL TABLET 527717 CYCLOBENZAPRINE HCL Inactive ZOCOR 40 MG ORAL TABLET 1 tab by mouth daily 4 ZOCOR 40 MG ORAL TABLET 828080 SIMVASTATIN Inactive TUSSIONEX PENNKINETIC ER 10-8 MG/5ML [...] FLUTICASONE PROPIO EFE 50 MCG/ACT NASAL SUSPENSION 3319126 FLUTICASONE PROPIONATE Inactive TUSSIONEX PENNKINETIC ER 10-8 [...] three days PREDNISONE 20 MG ORAL TABLET 918834 PREDNIS ONE Inactive PROAIR HFA 108 (90 BASE) MCG/ACT INHALATION AEROSOL SO LUTION 2 puffs four times a day as needed PROAIR HFA 108 (90 B ASE) MCG/ACT INHALATION AEROSOL SOLUTION ALBUTEROL SULFATE Inactive ZITHROMAX Z-REYNA 250 MG ORAL TABLET 2 today, then 1 daily for 4 d ays ZITHROMAX Z-REYNA 250 MG ORAL TABLET 875153 AZITHROMYCIN Inactive CEFDINIR 300 MG ORAL CAPSULE by mouth twice a day 2010 CEFDINIR 300 MG ORAL CAPSULE 692624 CEFDINIR Inactive CEFDINIR 300 MG ORAL CAPSULE [...] 2-5 03/07/07 ZITHROMAX 250 MG ORAL TABLET 735355 AZITHROMYCIN Greer ctive CEFDINIR 300 MG ORAL CAPSULE by mouth twice a day 2011 CEFDINIR 300 MG ORAL CAPSULE 20020704 CEFDINIR Inactive PREDNISONE 20 MG ORAL TABLET 2 tabs daily for 3 days, 1 tab daily for 3 days, 1/2 tab daily for 2 days PREDNISONE 20 MG ORAL T ABLET 738474 PREDNISONE Inactive AVELOX 400 MG ORAL TABLET 1 tab by mouth daily AVELOX 400 MG ORAL TABLET 563833 MOXIFLOXACIN HCL Inactive AVELOX 400 MG ORAL TABLET 1 tab by mouth daily AVELOX 400 MG ORAL TABLET 016030 MOXIFLOXACIN HCL Inactive PREDNISONE 20 MG ORAL TABLET Take 3 tabs daily for 3 d ays, 2 tabs daily for 3 days, 1 tab daily for 3 days, 1/2 tab daily for 3 days 11/07 PREDNISONE 20 MG ORAL TABLET 606882 PREDNISONE Inactive LEVAQUIN 500 MG ORAL TABLET take one po QD LEVAQUIN 500 MG ORAL TABLET 445139 LEVOFLOXACIN Inactive AZITHROMYCIN 250 MG ORAL TABLET 2 po qd x 1 day, then 1 po q d x 4 days AZITHROMYCIN 250 MG ORAL TABLET 967653 AZITHROMY GIOVANNI Inactive MEDROL 4 MG ORAL TABLET THERAPY PACK 6 tabs on day 1, 5 tabs on day 2, 4 tabs on day 3, 3 tabs on day 4, 2 tabs on day 5, 1 tab on day 6 2013 MEDROL 4 MG ORAL TABLET THERAPY PACK 774250 METHYLPREDNISOLONE Greer ctive CHERATUSSIN AC 100-10 MG/5ML ORAL SYRUP 5ml po q6hr PRN Cough 20 13/04/14 CHERATUSSIN AC 100-10 MG/5ML ORAL SYRUP 649171 GUAIFENE SIN-CODEINE Inactive TRIAMCINOLONE ACETONIDE 0.1 % EXTERNAL CREAM apply three roger es daily prn rash TRIAMCINOLONE ACETONIDE 0.1 % EXTERNAL CREAM 101 4314 TRIAMCINOLONE ACETONIDE Inactive AZITHROMYCIN 250 MG ORAL TABLET 2 po qd x 1 day, then 1 po q d x 4 days AZITHROMYCIN 250 MG ORAL TABLET 826147 AZITHROMY GIOVANNI Inactive MEDROL 4 MG ORAL TABLET THERAPY PACK 6 pills x 1 day, then 5 pills x 1 day then 4 pills x 1 day, then 3 pills x 1 day, then 2 pills x 1 day, then 1 pill x 1 day, then stop MEDROL 4 MG ORAL TABLET THERAPY PACK 938453 METHYLPREDNISOLONE Inactive AMOXICILLIN 500 MG ORAL CAPSULE 1 tab by mouth 3 times daily x 10 days AMOXICILLIN 500 MG ORAL CAPSULE 211904 AMOXICILL IN Inactive AMOXICILLIN 500 MG ORAL CAPSULE 1 tab by mouth 3 times daily x 10 days AMOXICILLIN 500 MG ORAL CAPSULE 501248 AMOXICILL IN Inactive ZITHROMAX 250 MG ORAL TABLET 2 po today, then 1 po q days 2-5 20 12/08/14 ZITHROMAX 250 MG ORAL TABLET 596971 AZITHROMYCIN Sinclair ctive AUGMENTIN 875-125 MG ORAL TABLET 1 po BID x 10 days 20 13/01/20 AUGMENTIN 875-125 MG ORAL TABLET 010592 AMOXICILLIN-POT CLAVULANATE Inactive ZITHROMAX Z-REYNA 250 MG ORAL TABLET 2 today, then 1 daily for 4 d ays ZITHROMAX Z-REYNA 250 MG ORAL TABLET 001621 AZITHROMYCIN Inactive ZITHROMAX 250 MG ORAL TABLET 2 po today, then 1 po q days 2-5 20 14/03/21 ZITHROMAX 250 MG ORAL TABLET 507200 AZITHROMYCIN Sinclair ctive ZITHROMAX Z-REYNA 250 MG ORAL TABLET 2 today, then 1 daily for 4 d ays ZITHROMAX Z-REYNA 250 MG ORAL TABLET 700954 AZITHROMYCIN Inactive CEFDINIR 300 MG ORAL CAPSULE 1 po BID x 10 days 06/21 CEFDINIR 300 MG ORAL CAPSULE 20020704 CEFDINIR Inactive ZITHROMAX 250 MG ORAL TABLET 2 po today, then 1 po q days 2-5 20 13/08/10 ZITHROMAX 250 MG ORAL TABLET 167236 AZITHROMYCIN Greer ctive LEVAQUIN 500 MG ORAL TABLET 1 tablet by mouth daily 13/09/24 LEVAQUIN 500 MG ORAL TABLET 19971102 LEVOFLOXACIN Inactive SINGULAIR 10 MG ORAL TABLET 1 po qday for allergies 20 14/01/12 SINGULAIR 10 MG ORAL TABLET 20010504 MONTELUKAST SODIUM Inactive AMOXICILLIN 500 MG ORAL CAPSULE 2 po BID x 10 days 201 09/29/08 AMOXICILLIN 500 MG ORAL CAPSULE 316776 AMOXICILLIN Inactive PREDNISONE 20 MG ORAL TABLET 2 tabs daily for 3 days, 1 tab daily for 3 days, 1/2 tab daily for 2 days PREDNISONE 20 MG ORAL T ABLET 654346 PREDNISONE Inactive ZITHROMAX Z-REYNA 250 MG ORAL TABLET 2 today, then 1 daily for 4 d ays ZITHROMAX Z-REYNA 250 MG ORAL TABLET 053013 AZITHROMYCIN Inactive PREDNISONE 20 MG ORAL TABLET 2 tabs daily for 3 days, 1 tab daily for 3 days, 1/2 tab daily for 2 days PREDNISONE 20 MG ORAL T ABLET 658264 PREDNISONE Inactive ZITHROMAX 250 MG ORAL TABLET 2 po today, then 1 po q days 2-5 20 14/09/04 ZITHROMAX 250 MG ORAL TABLET 406813 AZITHROMYCIN Greer ctive AMOXICILLIN 500 MG ORAL CAPSULE 1 cap by mouth three times a day AMOXICILLIN 500 MG ORAL CAPSULE 011112 AMOXICILLIN Inactive TERBINAFINE HCL 250 MG ORAL TABLET 1 qDay for nail fungus 7 TERBINAFINE HCL 250 MG ORAL TABLET 666079 TERBINAFINE HCL Inact nael AUGMENTIN 875-125 MG ORAL TABLET 1 po BID x 10 days 16/03/22 AUGMENTIN 875-125 MG ORAL TABLET 371204 AMOXICILLIN-POT CLAVULANATE Inactive PREDNISONE 20 MG ORAL TABLET 2 po qd x 5 days PREDNISONE 20 MG ORAL TABLET 674147 PREDNISONE Inactive Vital Signs Date Name Value [...] - Chem istry sodium, serum 132 mmol/L 258-057 5629/07/12 potassium, serum 2.7 mmol/L 3.5-5.2 chloride, serum 93 mmol/L 98-107 carbon dioxide, venous blood 30.8 mmol/L 21.0-32 .0 blood glucose 107 mg/dL 65-110 calcium, serum 9.3 mg/dL 8.5-10.1 urea nitrogen, blood 12 mg/dL 7-18 creatinine, serum 1.00 mg/dL 0.60-1.30 sodium, serum 142 mmol/L 942-844 4981/07/17 potassium, serum 4.2 mmol/L 3.5-5.2 chloride, serum 106 mmol/L 98-107 carbon dioxide, venous blood 29.9 mmol/L 21.0-32 .0 blood glucose 108 mg/dL 65-110 calcium, serum 9.1 mg/dL 8.5-10.1 urea nitrogen, blood 11 mg/dL 7-18 creatinine, serum 0.81 mg/dL 0.60-1.30 sodium, serum 139 mmol/L 224-145 6486/03/19 potassium, serum 3.6 mmol/L 3.5-5.2 chloride, serum 100 mmol/L 98-107 carbon dioxide, venous blood 30.3 mmol/L 21.0-32 .0 blood glucose 101 mg/dL 65-110 calcium, serum 9.4 mg/dL 8.5-10.1 urea nitrogen, blood 10 mg/dL 7-18 creatinine, serum 0.96 mg/dL 0.60-1.30 Encounters Code Encounter Date Provider Facility CPT-98432 Level 3 Est. Patient 11:34:49 STEAM TABLE ASSOCIATE Perez Mora MD [facility] CPT-48125 Level 4 Est. Patient 09:51:32 STEAM TABLE ASSOCIATE Carlton rich MD [facility] CPT-23315 Level 3 Est. Patient 10:26:00 STEAM TABLE ASSOCIATE Elise Are ll [facility] CPT-43155 Level 3 Est. Patient 13:35:41 STEAM TABLE ASSOCIATE Carlton rich MD [facility] CPT-46539 Level 3 Est. Patient 10:03:52 STEAM TABLE ASSOCIATE Carlton rich MD [facility] CPT-50326 Level 3 Est. Patient 12:17:50 CDT Hugo Restrepo MD [facility]-94435 Level 3 Est. Patient 13:42:38 CDT Elise Are [facility] CPT-77963 Level 3 Est. Patient 13:23:51 CDT Diya cobian [facility] CPT-88147 Level 3 Est. Patient 14:22:19 STEAM TABLE ASSOCIATE Diya cobian [facility] CPT-53511 Level 3 Est. Patient 10:11:46 CDT Carlton rich MD [facility] CPT-95352 Level 3 Est. Patient 17:29:43 CDT Elise Are [facility] CPT-58466 Level 3 Est. Patient 11:58:06 CDT Elise Are [facility] CPT-61528 Level 4 Est. Patient 14:36:51 CDT Carlton rich MD [facility] CPT-14174 Level 3 Est. Patient 18:16:00 STEAM TABLE ASSOCIATE Blaine HERNANDEZ [facility] CPT-74124 Level 3 Est. Patient 09:45:49 STEAM TABLE ASSOCIATE Carlton rich MD [facility] CPT-70297 Level 3 Est. Patient 13:19:20 CDT Carlton rich MD [facility] CPT-71479 Level 3 Est. Patient 13:06:43 CDT Ridge tam DO [facility] CPT-20484 Level 3 Est. Patient 10:03:07 CDT Perez Mora MD [facility]-91482 Level 3 Est. Patient 19:50:35 STEAM TABLE ASSOCIATE Carlton rich MD [facility]-39668 Level 4 Est. Patient 18:05:01 STEAM TABLE ASSOCIATE Carlton rich MD [facility]-68136 Level 3 Est. Patient 10:45:55 STEAM TABLE ASSOCIATE Hugo Restrepo MD [facility]-12214 Level 3 Est. Patient 14:12:49 CDT Griffin HERNANDEZ [facility]-89706 Level 3 Est. Patient 17:37:24 CDT Carlton rich MD [facility]-73885 Level 3 Est. Patient 16:51:54 CDT Carlton rich MD [facility]-27688 Level 3 Est. Patient 12:18:11 CDT Hugo Restrepo MD [facility]-07828 Level 3 Est. Patient 11:30:25 CDT Marcy crisostomo MD PhD [facility]-15592 Level 3 Est. Patient 12:00:47 STEAM TABLE ASSOCIATE Carlton rich MD [facility]-57055 Level 3 Est. Patient 16:31:06 STEAM TABLE ASSOCIATE Carlton rich MD [facility]-32778 Level 3 Est. Patient 16:23:24 STEAM TABLE ASSOCIATE Ridge tam [facility]-29820 Level 3 Est. Patient 12:34:12 CDT Carlton rich MD [facility]-02471 Level 2 Est. Patient 15:43:33 CDT Rboi armstrong MD [facility] CPT-85089 Level 4 Est. Patient 14:04:44 CDT Carlton rich MD [facility] CPT-90654 Level 3 Est. Patient 05:47:59 CDT Ridge Jaun Celeste tam DO [facility] CPT-54549 Level 3 Est. Patient 13:12:53 STEAM TABLE ASSOCIATE Carlton rich MD [facility] CPT-70221 Level 3 Est. Patient 14:26:53 CDT Hugo Restrepo MD [facility] Procedures Code Procedure Name Date Entry Date Standard Desc ription CPT-000 Give Appropriate Flu Vaccine 14:14:31 CDT 2 CPT-J1040 Depo Medrol 80 mg (Methyl Prednisolone A cetate) 10:42:44 CDT CPT-J1100 Decadron 8mg (Dexamethasone) 10:42:44 CDT 2 CPT-J0696 Rocephin 1gm Inj Solr 14:32:13 CDT CPT-J1020 Depo Medrol 60 mg (Methyl Prednisolone A cetate) 14:32:13 CDT CPT-J1100 Decadron 6mg (Dexamethasone) 14:32:13 CDT 2 CPT-64862 Hip bilat min 2V w AP pelvis 13:16:20 CDT 2 CPT-74061 Pelvis only 13:07:33 CDT CPT-42511 Spec Collection and Handling Fee 11:25:12 C DT CPT-61966 Fluzone Quadrivalent Intramuscular Suspe nsion 0.5 ML 14:31:55 CDT CPT-38895 Abx/Therapy Injection 13:28:47 STEAM TABLE ASSOCIATE CPT-J2930 Solu Medrol 125 mg (Methyl Prednisolone Sodium Succinate) 12:00:47 STEAM TABLE ASSOCIATE CPT-90728 Venipuncture Draw Fee 11:33:31 CDT CPT-78504 EKG Trac and Interp 11:21:09 CDT CPT-90504 Chest 2V Frontal and Lat 11:21:09 CDT 12/15 CPT-69629 Venipuncture Draw Fee 08:02:34 CDT CPT-17155 Chest 2V Frontal and Lat 05:47:59 CDT 06/05
--- OUTSIDE RECORDS SUMMARY | 2019-10-08 08:18 | XMS REPORT | Clinical Summary ---
Author Author Caitlin, Juliana [facility] Address Unknown Phone Unavailable Allergies, [...] then 1 po q days 2-5 AZITHROMYCIN [id number] Active Elise Whitmore APRN Active XANAX 0.5 MG TABS one tablet by mouth daily prn anxiety ALPRAZOLAM 23283375461 Active Carlton Hu MD Active CYMBALTA 30 MG CPEP 1 cap by mouth daily for depression DULOXETINE HCL 27567136263 Active Carlton Hu MD Active CEFDINIR 300 MG CAPS 1 po BID x 10 days CEFDINI R 68190303460 No Longer Active Carlton Hu MD Active ZOCOR 40 MG TAB 1 tab by mouth daily SIMVASTATI N 11641620064 No Longer Active Carlton Hu MD Active CYCLOBENZAPRINE HCL 10 MG TABS 1 tablet by mouth BID prn had cherelle n CYCLOBENZAPRINE HCL 12216120858 No Longer Active Carlton Hu MD Active LEVOFLOXACIN 500 MG ORAL TABS 1 tab PO daily x 10 days LEVOFLOXACIN 73987478719 No Longer Active Carlton Hu MD Acti ve PREDNISONE 20 MG ORAL TABS 3 tab PO qd x 2d, 2 tab PO qd x 2d, 1 tab PO qd x 2d, 1/2 tab PO qd x 2d PREDNISONE 39208618741 No Longer Active Carlton Hu MD Active TUSSIONEX PENNKINETIC ER 10-8 MG/5ML ORAL LQCR 5 mL PO q 12 hrs PRN cough HYDROCOD POLST-CHLORPHEN POLST 41451600712 Active Elise Whitmore SHOE POLISHER Active FLUTICASONE PROPIONATE 50 MCG/ACT SUSP 1 to 2 sprays each no stril daily FLUTICASONE PROPIONATE 20746116218 No Longer Active T jaz HERANNDEZ Active CHERATUSSIN AC 100-10 MG/5ML SYRP 1 tsp by mouth every 4 hours as needed for cough GUAIFENESIN-CODEINE 14974391271 No Longer Activ e Blaine HERNANDEZ Active PROMETHAZINE-CODEINE 6.25-10 MG/5ML SYRP 1 tsp by mout h every 6 hours if needed for cough PROMETHAZINE-CODEINE 99430557396 No Long er Active Blaine HERNANDEZ Active CHERATUSSIN AC 100-10 MG/5ML SYRP 1 tsp by mouth every 4 hours as needed for cough GUAIFENESIN-CODEINE 15382851528 No Longer Activ Jorge Luis HERNANDEZ Active ZITHROMAX Z-REYNA 250 MG TABS 2 today, then 1 daily for 4 days 201 08/30/03 AZITHROMYCIN 32860043117 No Longer Active Columba Raida Act nael ZITHROMAX 250 MG TAB 2 po today, then 1 po q days 2-5 AZITHROMYCIN 12583725134 No Longer Active Carlton Hu MD Acti ve ZITHROMAX Z-REYNA 250 MG TABS 2 today, then 1 daily for 4 days 201 08/07/20 AZITHROMYCIN 43809149951 No Longer Active Columba Raida Act nael AUGMENTIN 875-125 MG TAB 1 po BID x 10 days AMOXICILLIN- POT CLAVULANATE 52207966133 No Longer Active Diya De Guzman APRN Active ZITHROMAX 250 MG TAB 2 po today, then 1 po q days 2-5 AZITHROMYCIN 19183976366 No Longer Active Carlton Hu MD Acti ve TRAMADOL HCL 50 MG TABS 1 po tid with ES Tylenol TRAMADOL HCL 16586928446 Active Carlton Hu MD Active PREMARIN 0.625 MG TABS TAKE 1 TAB BY MOUTH DAILY 07/25 ESTROGENS CONJUGATED 88803291773 No Longer Active Ridge Bess DO Active CYMBALTA 30 MG CPEP 1 cap by mouth daily DULOXE SNEHA HCL 29488460067 No Longer Active Ridge Bess DO Active AMOXICILLIN 500 MG CAP 1 tab by mouth 3 times daily x 10 days 20 14/04/28 AMOXICILLIN 38389468441 No Longer Active Carlton Hu MD Active AMOXICILLIN 500 MG CAP 1 tab by mouth 3 times daily x 10 days 20 13/03/08 AMOXICILLIN 28321879226 No Longer Active Carlton Hu MD Active PROMETHAZINE-CODEINE 6.25-10 MG/5ML SYRP 1 tsp by mouth ever y 8 hours prn cough PROMETHAZINE-CODEINE 12625906279 No Longer Active Robert Hu MD Active MEDROL (REYNA) 4 MG TABS 6 pills x 1 day, then 5 pill s x 1 day then 4 pills x 1 day, then 3 pills x 1 day, then 2 pills x 1 day, then 1 pill x 1 day, then stop METHYLPREDNISOLONE 38647732747 No Longer Active Parris Mora MD Active AZITHROMYCIN 250 MG TABS 2 po qd x 1 day, then 1 po qd x 4 days AZITHROMYCIN 35455264419 No Longer Active Perez Mora MD Active SYMBICORT 160-4.5 MCG/ACT AERO 2 puffs bid with rinse after 2011 BUDESONIDE-FORMOTEROL FUMARATE 89588476228 No Longer Active Perez Mora MD Active LYRICA 75 MG CAPS TAKE 1 CAPSULE BY MOUTH TWICE DAILY 2013 PREGABALIN 47516288560 No Longer Active Carlton Hu MD Active LYRICA 100 MG CAPS Take 1 tab po BID for fibromyalgia PREGABALIN 30887238344 Active Elise Whitmore SHOE POLISHER Active TOPAMAX 25 MG TABS 1 qHS x 1 week, then 1 BID x 1 week, then 1 qAM and 2 qHS x 1 week, then 2 BID (migraine prevention) TOPIRAMAT E 08630338672 No Longer Active Jerica FUENTES Active TOPAMAX 50 MG TABS take 1 tab po BID for migraines. 12/07/10 TOPIRAMATE 66550671189 No Longer Active Jericacatrachita AGUILARA Ac tive TOPAMAX 100 MG TABS Take 1 tablet po bid TOPIRAMATE 4999 3789324 Active Carlton Hu MD Active TRIAMCINOLONE ACETONIDE 0.1 % CREA apply three times daily prn r beatrice TRIAMCINOLONE ACETONIDE 68615361786 No Longer Active Carlton Hu MD Active PAXIL 40 MG TAB take 1 tab po qday for depression PAROXETINE HCL 59406522779 Active Elise Whitmore APRN Active CHERATUSSIN AC 100-10 MG/5ML SYRP 5ml po q6hr PRN Cough GUAIFENESIN-CODEINE 97996738400 No Longer Active Carlton Hu MD Active MEDROL (REYNA) 4 MG TABS 6 tabs on day 1, 5 tabs on d ay 2, 4 tabs on day 3, 3 tabs on day 4, 2 tabs on day 5, 1 tab on day 6 METHYLPREDNISOLONE 18328440271 No Longer Active Perez Mora MD Active AZITHROMYCIN 250 MG TABS 2 po qd x 1 day, then 1 po qd x 4 days AZITHROMYCIN 18731411292 No Longer Active Perez Mora MD Active PROPRANOLOL HCL 60 MG TABS 1 PO Q D PROPRANOL OL HCL 37769425256 No Longer Active Perez Mora MD Active CHERATUSSIN AC 100-10 MG/5ML SYRP take one tsp po Q 6hours prn c ough GUAIFENESIN-CODEINE 94049218348 No Longer Active Perez Means Active AUGMENTIN 875-125 MG TAB 1 tab by mouth twice daily with food 20 12/03/31 AMOXICILLIN-POT CLAVULANATE 59518056997 No Longer Active Chanel Mora MD Active CHERATUSSIN AC 100-10 MG/5ML SYRP 1 tsp by mouth every 4 hours as needed for cough GUAIFENESIN-CODEINE 67149818731 No Longer Activ e Hugo Restrepo MD Active ACETAMINOPHEN-CODEINE #3 300-30 MG TABS 1 PO Q 4-6 HRS PRN PAIN ACETAMINOPHEN-CODEINE 97234119694 No Longer Active Hugo Restrepo MD Active LEVAQUIN 500 MG TABS take one po QD LEVOFLOXACI N 15970650315 No Longer Active Griffin HERNANDEZ Active PREDNISONE 20 MG TAB Take 3 tabs daily for 3 days , 2 tabs daily for 3 days, 1 tab daily for 3 days, 1/2 tab daily for 3 days P REDNISONE 61657754296 No Longer Active Carlton Hu MD Active AVELOX 400 MG TABS 1 tab by mouth daily MOXIFLO XACIN HCL 88402113630 No Longer Active Carlton Hu MD Active CHERATUSSIN AC 100-10 MG/5ML SYRP 1 tsp by mouth every 4 hours as needed for cough GUAIFENESIN-CODEINE 41027346949 No Longer Activ e Hugo Restrepo MD Active AVELOX 400 MG TABS 1 tab by mouth daily MOXIFLO XACIN HCL 57572350537 No Longer Active Marcy De La Rosa MD PhD Active TERBINAFINE HCL 250 MG TABS 1 qDay TERBINAF INE HCL 87588691640 No Longer Active Marcy De La Rosa MD PhD Active CHERATUSSIN AC 100-10 MG/5ML SYRP 1 tsp by mouth every 4 hours as needed for cough GUAIFENESIN-CODEINE 50776740281 No Longer Activ e Marcy De La Rosa MD PhD Active AVELOX 400 MG TABS 1 tab by mouth daily MOXIFLO XACIN HCL 96942928093 No Longer Active Marcy De La Rosa MD PhD Active HYDROCODONE-ACETAMINOPHEN 5-325 MG TABS 1 po q 6hr PRN cough 201 05/09/16 HYDROCODONE-ACETAMINOPHEN 80575099509 No Longer Active Marcy De La Rosa MD PhD Active PREDNISONE 20 MG TAB 2 tabs daily for 3 days, 1 t ab daily for 3 days, 1/2 tab daily for 2 days PREDNISONE 86337638106 No Longer Active Carlton Hu MD Active CEFDINIR 300 MG CAPS by mouth twice a day CEFDI ODILIA 26118246573 No Longer Active Carlton Hu MD Active HYDROCHLOROTHIAZIDE 25 MG TABS 1 TAB PO DAILY H YDROCHLOROTHIAZIDE 25760782625 Active Carlton Hu MD Active ACETAMINOPHEN-CODEINE #3 300-30 MG TABS 1 tablet po q 4-6hrs prn pain ACETAMINOPHEN-CODEINE 60081512512 No Longer Active Ridge Bess DO Active ZITHROMAX 250 MG TAB 2 po today, then 1 po q days 2-5 AZITHROMYCIN 73502885571 No Longer Active Carlton Hu MD Acti ve CHERATUSSIN AC 100-10 MG/5ML SYRP take 1 tsp po q4-6 hours prn c ough GUAIFENESIN-CODEINE 06730729020 No Longer Active Carlton Hu MD Active ACETAMINOPHEN-CODEINE #3 300-30 MG TABS 1 PO Q 4-6 HR PRN PAIN 2 ACETAMINOPHEN-CODEINE 97196564536 No Longer Active Carlton rich MD Active LORTAB 7.5-500 MG/15ML ELIX 7.5 ml po q 4 hour prn cough HYDROCODONE-ACETAMINOPHEN 24200553698 No Longer Active Carlton Hu MD Active PREDNISONE 20 MG TAB 1 po bid 3 days, then 1 po q day 3 days 201 05/03/07 PREDNISONE 49921660221 No Longer Active Carlton Hu MD Active ELMIRON 100 MG CAPS 2 tablets in the am and 1 tablet at hs PENTOSAN POLYSULFATE SODIUM 44053111439 Active Carlton Hu MD Ac tive CEFDINIR 300 MG CAPS by mouth twice a day CEFDI ODILIA 80632527636 No Longer Active Carlton Hu MD Active CEFDINIR 300 MG CAPS by mouth twice a day CEFDI ODILIA 27826905802 No Longer Active Carlton Hu MD Active CEFDINIR 300 MG CAPS by mouth twice a day CEFDI ODILIA 32936081420 No Longer Active Carlton Hu MD Active TESSALON PERLES 100 MG CAP 1 tablet by mouth 3 times daily a s needed for cough BENZONATATE 83848443311 No Longer Active Carlton bustamante MD Active CEFDINIR 300 MG CAPS by mouth twice a day CEFDI ODILIA 30120344968 No Longer Active Carlton Hu MD Active ZITHROMAX Z-REYNA 250 MG TABS 2 today, then 1 daily for 4 days 201 04/09/17 AZITHROMYCIN 80762496900 No Longer Active Hugo Restrepo MD Active TESSALON PERLES 100 MG CAP 1 tablet by mouth 3 times daily a s needed for cough TESSALON PERLES 100 MG CAP 598571 BENZONATATE I nactive PREDNISONE 20 MG TAB 1 po bid 3 days, then 1 po q day 3 days 201 05/03/07 PREDNISONE 20 MG TAB 695070 PREDNISONE Inactive LORTAB 7.5-500 MG/15ML ELIX 7.5 ml po q 4 hour prn cough LORTAB 7.5-500 MG/15ML ELIX HYDROCODONE-ACETAMINOPHEN Inacti ve ACETAMINOPHEN-CODEINE #3 300-30 MG TABS 1 PO Q 4-6 HR PRN PAIN 2 ACETAMINOPHEN-CODEINE #3 300-30 MG TABS 463877 ACETAMIN OPHEN-CODEINE Inactive CHERATUSSIN AC 100-10 MG/5ML SYRP take 1 tsp po q4-6 hours prn c ough CHERATUSSIN AC 100-10 MG/5ML SYRP 569515 GUAIFENESIN-CO DEINE Inactive ACETAMINOPHEN-CODEINE #3 300-30 MG TABS 1 tablet po q 4-6hrs prn pain ACETAMINOPHEN-CODEINE #3 300-30 MG TABS 600721 ACETAMIN OPHEN-CODEINE Inactive HYDROCODONE-ACETAMINOPHEN 5-325 MG TABS 1 po q 6hr PRN cough 201 05/09/16 HYDROCODONE-ACETAMINOPHEN 5-325 MG TABS 464040 HYDROCODONE-ACETAMINOPHEN Inactive AVELOX 400 MG TABS 1 tab by mouth daily A VELOX 400 MG TABS 922395 MOXIFLOXACIN HCL Inactive CHERATUSSIN AC 100-10 MG/5ML SYRP 1 tsp by mouth every 4 hours as needed for cough CHERATUSSIN AC 100-10 MG/5ML SYRP 343604 GUAIFENESIN-CODEINE Inactive TERBINAFINE HCL 250 MG TABS 1 qDay TERBINAFINE HCL 250 MG TABS 990741 TERBINAFINE HCL Inactive CHERATUSSIN AC 100-10 MG/5ML SYRP 1 tsp by mouth every 4 hours as needed for cough CHERATUSSIN AC 100-10 MG/5ML SYRP 643771 GUAIFENESIN-CODEINE Inactive ACETAMINOPHEN-CODEINE #3 300-30 MG TABS 1 PO Q 4-6 HRS PRN PAIN ACETAMINOPHEN-CODEINE #3 300-30 MG TABS 146699 ACETAMINOPHEN-CODEIN E Inactive CHERATUSSIN AC 100-10 MG/5ML SYRP 1 tsp by mouth every 4 hours as needed for cough CHERATUSSIN AC 100-10 MG/5ML SYRP 311641 GUAIFENESIN-CODEINE Inactive AUGMENTIN 875-125 MG TAB 1 tab by mouth twice daily with food 20 12/03/31 AUGMENTIN 875-125 MG TAB 463639 AMOXICILLIN-POT CLAVULA EFE Inactive CHERATUSSIN AC 100-10 MG/5ML SYRP take one tsp po Q 6hours prn c ough CHERATUSSIN AC 100-10 MG/5ML SYRP 219292 GUAIFENESIN-CO DEINE Inactive PROPRANOLOL HCL 60 MG TABS 1 PO Q D P ROPRANOLOL HCL 60 MG TABS 715322 PROPRANOLOL HCL Inactive TOPAMAX 50 MG TABS take 1 tab po BID for migraines. 20 12/07/10 TOPAMAX 50 MG TABS 290867 TOPIRAMATE Inactive TOPAMAX 25 MG TABS 1 qHS x 1 week, then 1 BID x 1 week, then 1 qAM and 2 qHS x 1 week, then 2 BID (migraine prevention) TOPAMAX 2 5 MG TABS 971715 TOPIRAMATE Inactive LYRICA 75 MG CAPS TAKE 1 CAPSULE BY MOUTH TWICE DAILY LYRICA 75 MG CAPS PREGABALIN Inactive SYMBICORT 160-4.5 MCG/ACT AERO 2 puffs bid with rinse after 2011 SYMBICORT 160-4.5 MCG/ACT AERO BUDESONIDE-FORMOT SÁNCHEZ FUMARATE Inactive PROMETHAZINE-CODEINE 6.25-10 MG/5ML SYRP 1 tsp by mouth ever y 8 hours prn cough PROMETHAZINE-CODEINE 6.25-10 MG/5ML SYRP 688352 PROMETHAZINE-CODEINE Inactive CYMBALTA 30 MG CPEP 1 cap by mouth daily CYMBALTA 30 MG CPEP 486254 DULOXETINE HCL Inactive PREMARIN 0.625 MG TABS TAKE 1 TAB BY MOUTH DAILY 07/25 PREMARIN 0.625 MG TABS ESTROGENS CONJUGATED Inactive CHERATUSSIN AC 100-10 MG/5ML SYRP 1 tsp by mouth every 4 hours as needed for cough CHERATUSSIN AC 100-10 MG/5ML SYRP 105671 GUAIFENESIN-CODEINE Inactive PROMETHAZINE-CODEINE 6.25-10 MG/5ML SYRP 1 tsp by mout h every 6 hours if needed for cough PROMETHAZINE-CODEINE 6.25-10 MG/5ML SYRP 558784 PROMETHAZINE-CODEINE Inactive CHERATUSSIN AC 100-10 MG/5ML SYRP 1 tsp by mouth every 4 hours as needed for cough CHERATUSSIN AC 100-10 MG/5ML SYRP 724928 GUAIFENESIN-CODEINE Inactive FLUTICASONE PROPIONATE 50 MCG/ACT SUSP 1 to 2 sprays each no stril daily FLUTICASONE PROPIONATE 50 MCG/ACT SUSP 089820 FLUTICASONE PROPIONATE Inactive PREDNISONE 20 MG ORAL TABS 3 tab PO qd x 2d, 2 tab PO qd x 2d, 1 tab PO qd x 2d, 1/2 tab PO qd x 2d PREDNISONE 20 MG ORAL TABS 692358 PREDNISONE Inactive LEVOFLOXACIN 500 MG ORAL TABS 1 tab PO daily x 10 days LEVOFLOXACIN 500 MG ORAL TABS 993839 LEVOFLOXACIN Inactive CYCLOBENZAPRINE HCL 10 MG TABS 1 tablet by mouth BID prn had cherelle n CYCLOBENZAPRINE HCL 10 MG TABS 926699 CYCLOBENZAPRINE H CL Inactive ZOCOR 40 MG TAB 1 tab by mouth daily ZOCOR 40 M G TAB 983891 SIMVASTATIN Inactive ZITHROMAX Z-REYNA 250 MG TABS 2 today, then 1 daily for 4 days 201 04/09/17 ZITHROMAX Z-REYNA 250 MG TABS 2640777 AZITHROMYCIN Inac tive CEFDINIR 300 MG CAPS by mouth twice a day CEFDINIR 300 MG CAPS 20020704 CEFDINIR Inactive CEFDINIR 300 MG CAPS by mouth twice a day CEFDINIR 300 MG CAPS 189486 CEFDINIR Inactive CEFDINIR 300 MG CAPS by mouth twice a day CEFDINIR 300 MG CAPS 20020704 CEFDINIR Inactive CEFDINIR 300 MG CAPS by mouth twice a day CEFDINIR 300 MG CAPS 20020704 CEFDINIR Inactive ZITHROMAX 250 MG TAB 2 po today, then 1 po q days 2-5 ZITHROMAX 250 MG TAB 8368006 AZITHROMYCIN Inactive CEFDINIR 300 MG CAPS by mouth twice a day CEFDINIR 300 MG CAPS 20020704 CEFDINIR Inactive PREDNISONE 20 MG TAB 2 tabs daily for 3 days, 1 t ab daily for 3 days, 1/2 tab daily for 2 days PREDNISONE 20 MG TAB 395862 PREDNISON E Inactive AVELOX 400 MG TABS 1 tab by mouth daily A VELOX 400 MG TABS 680064 MOXIFLOXACIN HCL Inactive AVELOX 400 MG TABS 1 tab by mouth daily A VELOX 400 MG TABS 714716 MOXIFLOXACIN HCL Inactive PREDNISONE 20 MG TAB Take 3 tabs daily for 3 days , 2 tabs daily for 3 days, 1 tab daily for 3 days, 1/2 tab daily for 3 days PREDNISONE 20 MG TAB 758641 PREDNISONE Inactive LEVAQUIN 500 MG TABS take one po QD LEVAQUIN 50 0 MG TABS 535949 LEVOFLOXACIN Inactive AZITHROMYCIN 250 MG TABS 2 po qd x 1 day, then 1 po qd x 4 days AZITHROMYCIN 250 MG TABS 6858893 AZITHROMYCIN Inactiv e MEDROL (REYNA) 4 MG TABS 6 tabs on day 1, 5 tabs on d ay 2, 4 tabs on day 3, 3 tabs on day 4, 2 tabs on day 5, 1 tab on day 6 MEDROL (REYNA) 4 MG TABS 451211 METHYLPREDNISOLONE Inactive CHERATUSSIN AC 100-10 MG/5ML SYRP 5ml po q6hr PRN Cough CHERATUSSIN AC 100-10 MG/5ML SYRP 055374 GUAIFENESIN-CODEINE Inacti ve TRIAMCINOLONE ACETONIDE 0.1 % CREA apply three times daily prn r beatrice TRIAMCINOLONE ACETONIDE 0.1 % CREA 6609370 TRIAMCINOLONE ACETONIDE Inactive AZITHROMYCIN 250 MG TABS 2 po qd x 1 day, then 1 po qd x 4 days AZITHROMYCIN 250 MG TABS 7302898 AZITHROMYCIN Inactiv e MEDROL (REYNA) 4 MG TABS 6 pills x 1 day, then 5 pill s x 1 day then 4 pills x 1 day, then 3 pills x 1 day, then 2 pills x 1 day, then 1 pill x 1 day, then stop MEDROL (REYNA) 4 MG TABS 389134 METHYLPREDNISOLONE Inactive AMOXICILLIN 500 MG CAP 1 tab by mouth 3 times daily x 10 days 20 13/03/08 AMOXICILLIN 500 MG CAP 898238 AMOXICILLIN Inactive AMOXICILLIN 500 MG CAP 1 tab by mouth 3 times daily x 10 days 20 14/04/28 AMOXICILLIN 500 MG CAP 599210 AMOXICILLIN Inactive ZITHROMAX 250 MG TAB 2 po today, then 1 po q days 2-5 ZITHROMAX 250 MG TAB 9369302 AZITHROMYCIN Inactive AUGMENTIN 875-125 MG TAB 1 po BID x 10 days AUGMENTIN 875- 125 MG TAB 139326 AMOXICILLIN-POT CLAVULANATE Inactive ZITHROMAX Z-REYNA 250 MG TABS 2 today, then 1 daily for 4 days 201 08/07/20 ZITHROMAX Z-REYNA 250 MG TABS 1138695 AZITHROMYCIN Inac tive ZITHROMAX 250 MG TAB 2 po today, then 1 po q days 2-5 ZITHROMAX 250 MG TAB 9360995 AZITHROMYCIN Inactive ZITHROMAX Z-REYNA 250 MG TABS 2 today, then 1 daily for 4 days 201 08/30/03 ZITHROMAX Z-REYNA 250 MG TABS 3422385 AZITHROMYCIN Inac tive CEFDINIR 300 MG CAPS 1 po BID x 10 days C EFDINIR 300 MG CAPS 240875 CEFDINIR Inactive Vital Signs Date Name Value Unit [...] - [id number] [lb_av] Weigh t Measured Encounters Code Encounter Date Provider Facility CPT-43016 Level 4 Est. Patient 14:36:51 CDT Carlton rich MD [facility] CPT-14566 Level 3 Est. Patient 18:16:00 TOWEL FOLDER Blaine HERNANDEZ [facility] CPT-96477 Level 3 Est. Patient 09:45:49 TOWEL FOLDER [facility] CPT-36094 Level 3 Est. Patient 13:19:20 CDT Carlton rich MD [facility] CPT-10650 Level 3 Est. Patient 13:06:43 CDT Ridge tam DO [facility] CPT-92609 Level 3 Est. Patient 10:03:07 CDT Perez Mora MD [facility]-97657 Level 3 Est. Patient 19:50:35 TOWEL FOLDER Carlton rich MD [facility] CPT-59722 Level 4 Est. Patient 18:05:01 TOWEL FOLDER Carlton rich MD [facility]-84808 Level 3 Est. Patient 10:45:55 TOWEL FOLDER Hugo Restrepo MD [facility]-73217 Level 3 Est. Patient 14:12:49 CDT Griffin HERNANDEZ [facility]-93309 Level 3 Est. Patient 17:37:24 CDT Carlton rich MD [facility]-93721 Level 3 Est. Patient 16:51:54 CDT Carlton rich MD [facility]-59859 Level 3 Est. Patient 12:18:11 CDT Hugo Restrepo MD [facility]-13628 Level 3 Est. Patient 11:30:25 CDT Marcy crisostomo MD, PhD [facility]-14007 Level 3 Est. Patient 12:00:47 TOWEL FOLDER Carlton rich MD [facility]-65648 Level 3 Est. Patient 16:31:06 TOWEL FOLDER Carlton rich MD [facility]-82898 Level 3 Est. Patient 16:23:24 TOWEL FOLDER Ridge tam [facility] CPT-88732 Level 3 Est. Patient 12:34:12 CDT Carlton rich MD [facility]-38502 Level 2 Est. Patient 15:43:33 CDT Robi armstrong MD [facility] CPT-45682 Level 4 Est. Patient 14:04:44 CDT Carlton rich MD [facility] CPT-53170 Level 3 Est. Patient 05:47:59 CDT Ridge Jaun tam DO [facility] CPT-35875 Level 3 Est. Patient 13:12:53 TOWEL FOLDER Carlton rich MD [facility] CPT-32903 Level 3 Est. Patient 14:26:53 CDT Hugo Restrepo MD [facility] Procedures Code Procedure Name Date Entry Date Standard Desc ription CPT-29916 Hip bilat min 2V w AP pelvis 13:16:20 CDT 2 CPT-65645 Pelvis only 13:07:33 CDT CPT-65854 Spec Collection and Handling Fee 11:25:12 C DT CPT-56239 Fluzone Quadrivalent Intramuscular Suspe nsion 0.5 ML 14:31:55 CDT CPT-81800 Abx/Therapy Injection 13:28:47 TOWEL FOLDER CPT-J2930 Solu Medrol 125 mg (Methyl Prednisolone Sodium Succinate) 12:00:47 TOWEL FOLDER CPT-79933 Venipuncture Draw Fee 11:33:31 CDT CPT-31414 EKG Trac and Interp 11:21:09 CDT CPT-47388 Chest 2V Frontal and Lat 11:21:09 CDT 12/15 CPT-99187 Venipuncture Draw Fee 08:02:34 CDT CPT-55020 Chest 2V Frontal and Lat 05:47:59 CDT 06/05
--- OUTSIDE RECORDS SUMMARY | 2019-10-08 08:18 | XMS REPORT | Clinical Summary ---
Author Author Caitlin, Juliana Martinez Organization [facility] Address Unknown Phone Unavailable Allergies, Adverse Reactions, Alerts Allergy Name Reaction Description Start Date Severity Status Pr ovider No Known Allergies Columba Raida Conditions or Problems Problem Name Problem Code [...] Abdominal pain, other specified site; multiple sites BRONCHITIS ICD-490 Inactive Hugo Restrepo MD 201 [...] then 1 po q days 2-5 AZITHROMYCIN 85703830808 No Longer Active Carlton Hu MD Acti ve TRAMADOL HCL 50 MG TABS 1 po tid with ES Tylenol TRAMADOL HCL 43497646974 Active Carlton Hu MD Active PREMARIN 0.625 MG TABS TAKE 1 TAB BY MOUTH DAILY 07/25 ESTROGENS CONJUGATED 57012752050 No Longer Active Ridge Bess DO Active CYMBALTA 30 MG CPEP 1 cap by mouth daily DULOXE SNEHA HCL 29303832109 No Longer Active Ridge Bess DO Active AMOXICILLIN 500 MG CAP 1 tab by mouth 3 times daily x 10 days 20 14/04/28 AMOXICILLIN 06816483219 No Longer Active Carlton Hu MD Active AMOXICILLIN 500 MG CAP 1 tab by mouth 3 times daily x 10 days 20 13/03/08 AMOXICILLIN 40203526558 No Longer Active Carlton Hu MD Active CHERATUSSIN AC 100-10 MG/5ML SYRP 1 tsp by mouth every 4 hours as needed for cough GUAIFENESIN-CODEINE 12279996979 Active Carlton banks MD Active CYCLOBENZAPRINE HCL 10 MG TABS 1 tablet by mouth BID prn had pain 2 CYCLOBENZAPRINE HCL 14604025504 Active Carlton Hu MD A ctive PROMETHAZINE-CODEINE 6.25-10 MG/5ML SYRP 1 tsp by mouth ever y 8 hours prn cough PROMETHAZINE-CODEINE 68944407401 No Longer Active Robert jade Hu MD Active MEDROL (REYNA) 4 MG TABS 6 pills x 1 day, then 5 pill s x 1 day then 4 pills x 1 day, then 3 pills x 1 day, then 2 pills x 1 day, then 1 pill x 1 day, then stop METHYLPREDNISOLONE 49414106614 No Longer Active Parris Mora MD Active AZITHROMYCIN 250 MG TABS 2 po qd x 1 day, then 1 po qd x 4 days AZITHROMYCIN 95019316046 No Longer Active Perez Mora MD Active SYMBICORT 160-4.5 MCG/ACT AERO 2 puffs bid with rinse after 2011 BUDESONIDE-FORMOTEROL FUMARATE 03597515185 No Longer Active Perez Mora MD Active LYRICA 75 MG CAPS TAKE 1 CAPSULE BY MOUTH TWICE DAILY 2013 PREGABALIN 75112988929 No Longer Active Carlton Hu MD Active LYRICA 100 MG CAPS Take 1 tab po BID for fibromyalgia PREGABALIN 99336509333 Active Kavya Arambula MA Active TOPAMAX 25 MG TABS 1 qHS x 1 week, then 1 BID x 1 week, then 1 qAM and 2 qHS x 1 week, then 2 BID (migraine prevention) TOPIRAMAT E 37739409482 No Longer Active Jericacatrachita FUENTES Active TOPAMAX 50 MG TABS take 1 tab po BID for migraines. 12/07/10 TOPIRAMATE 33961221161 No Longer Active Jerica Osei RMA Ac tive TOPAMAX 100 MG TABS Take 1 tablet po bid TOPIRAMATE 4999 9229940 Active Carlton Hu MD Active TRIAMCINOLONE ACETONIDE 0.1 % CREA apply three times daily prn r beatrice TRIAMCINOLONE ACETONIDE 47142393198 No Longer Active Carlton Hu MD Active PAXIL 40 MG TAB take 1 tab po qday for depression PAROXETINE HCL 46678723865 Active Carlton Hu MD Active CHERATUSSIN AC 100-10 MG/5ML SYRP 5ml po q6hr PRN Cough GUAIFENESIN-CODEINE 89711497801 No Longer Active Carlton Hu MD Active MEDROL (REYNA) 4 MG TABS 6 tabs on day 1, 5 tabs on d ay 2, 4 tabs on day 3, 3 tabs on day 4, 2 tabs on day 5, 1 tab on day 6 METHYLPREDNISOLONE 64092244888 No Longer Active Perez Mora MD Active AZITHROMYCIN 250 MG TABS 2 po qd x 1 day, then 1 po qd x 4 days AZITHROMYCIN 48621901473 No Longer Active Perez Mora MD Active PROPRANOLOL HCL 60 MG TABS 1 PO Q D PROPRANOL OL HCL 95681297231 No Longer Active Perez Mora MD Active CHERATUSSIN AC 100-10 MG/5ML SYRP take one tsp po Q 6hours prn c ough GUAIFENESIN-CODEINE 63122893301 No Longer Active Perez Means Active AUGMENTIN 875-125 MG TAB 1 tab by mouth twice daily with food 20 12/03/31 AMOXICILLIN-POT CLAVULANATE 56779122204 No Longer Active Chanel Mora MD Active CHERATUSSIN AC 100-10 MG/5ML SYRP 1 tsp by mouth every 4 hours as needed for cough GUAIFENESIN-CODEINE 54272592550 No Longer Activ e Hugo Restrepo MD Active ACETAMINOPHEN-CODEINE #3 300-30 MG TABS 1 PO Q 4-6 HRS PRN PAIN ACETAMINOPHEN-CODEINE 56420679618 No Longer Active Hugo Restrepo MD Active LEVAQUIN 500 MG TABS take one po QD LEVOFLOXACI N 92058052537 No Longer Active Griffin HERNANDEZ Active PREDNISONE 20 MG TAB Take 3 tabs daily for 3 days , 2 tabs daily for 3 days, 1 tab daily for 3 days, 1/2 tab daily for 3 days P REDNISONE 33053850053 No Longer Active Carlton Hu MD Active AVELOX 400 MG TABS 1 tab by mouth daily MOXIFLO XACIN HCL 80322149188 No Longer Active Carlton Hu MD Active CHERATUSSIN AC 100-10 MG/5ML SYRP 1 tsp by mouth every 4 hours as needed for cough GUAIFENESIN-CODEINE 89327041614 No Longer Activ e Hugo Restrepo MD Active AVELOX 400 MG TABS 1 tab by mouth daily MOXIFLO XACIN HCL 31869116884 No Longer Active Marcy De La Rosa MD PhD Active TERBINAFINE HCL 250 MG TABS 1 qDay TERBINAF INE HCL 04391220277 No Longer Active Marcy De La Rosa MD PhD Active CHERATUSSIN AC 100-10 MG/5ML SYRP 1 tsp by mouth every 4 hours as needed for cough GUAIFENESIN-CODEINE 14004145805 No Longer Activ e Marcy De La Rosa MD PhD Active AVELOX 400 MG TABS 1 tab by mouth daily MOXIFLO XACIN HCL 39755834593 No Longer Active Marcy De La Rosa MD PhD Active HYDROCODONE-ACETAMINOPHEN 5-325 MG TABS 1 po q 6hr PRN cough 201 05/09/16 HYDROCODONE-ACETAMINOPHEN 73204129900 No Longer Active Marcy De La Rosa MD PhD Active PREDNISONE 20 MG TAB 2 tabs daily for 3 days, 1 t ab daily for 3 days, 1/2 tab daily for 2 days PREDNISONE 48369646670 No Longer Active Carlton Hu MD Active CEFDINIR 300 MG CAPS by mouth twice a day CEFDI ODILIA 60188208574 No Longer Active Carlton Hu MD Active ZOCOR 40 MG TAB 1 tab by mouth daily SIMVASTATIN 65827564307 Active Carlton Hu MD Active HYDROCHLOROTHIAZIDE 25 MG TABS 1 TAB PO DAILY H YDROCHLOROTHIAZIDE 97532936981 Active Carlton Hu MD Active ACETAMINOPHEN-CODEINE #3 300-30 MG TABS 1 tablet po q 4-6hrs prn pain ACETAMINOPHEN-CODEINE 35362522622 No Longer Active Ridge Bess DO Active ZITHROMAX 250 MG TAB 2 po today, then 1 po q days 2-5 AZITHROMYCIN 22937350114 No Longer Active Carlton Hu MD Acti ve CHERATUSSIN AC 100-10 MG/5ML SYRP take 1 tsp po q4-6 hours prn c ough GUAIFENESIN-CODEINE 61360578895 No Longer Active Carlton Hu MD Active ACETAMINOPHEN-CODEINE #3 300-30 MG TABS 1 PO Q 4-6 HR PRN PAIN 2 ACETAMINOPHEN-CODEINE 65357700399 No Longer Active Carlton rich MD Active LORTAB 7.5-500 MG/15ML ELIX 7.5 ml po q 4 hour prn cough HYDROCODONE-ACETAMINOPHEN 31792092967 No Longer Active Carlton Hu MD Active PREDNISONE 20 MG TAB 1 po bid 3 days, then 1 po q day 3 days 201 05/03/07 PREDNISONE 17151514874 No Longer Active Carlton Hu MD Active ELMIRON 100 MG CAPS 2 tablets in the am and 1 tablet at hs PENTOSAN POLYSULFATE SODIUM 59512600266 Active Graciemaximiliano Hernandezr Active CEFDINIR 300 MG CAPS by mouth twice a day CEFDI ODILIA 88773206521 No Longer Active Carlton Hu MD Active CEFDINIR 300 MG CAPS by mouth twice a day CEFDI ODILIA 41321661199 No Longer Active Carlton Hu MD Active CEFDINIR 300 MG CAPS by mouth twice a day CEFDI ODILIA 11416285555 No Longer Active Carlton Hu MD Active TESSALON PERLES 100 MG CAP 1 tablet by mouth 3 times daily a s needed for cough BENZONATATE 89847187176 No Longer Active Carlton bustamante MD Active CEFDINIR 300 MG CAPS by mouth twice a day CEFDI ODILIA 74566370914 No Longer Active Carlton Hu MD Active ZITHROMAX Z-REYNA 250 MG TABS 2 today, then 1 daily for 4 days 201 04/09/17 AZITHROMYCIN 15952219464 No Longer Active Hugo Restrepo MD Active TESSALON PERLES 100 MG CAP 1 tablet by mouth 3 times daily a s needed for cough TESSALON PERLES 100 MG CAP 044539 BENZONATATE I nactive PREDNISONE 20 MG TAB 1 po bid 3 days, then 1 po q day 3 days 201 05/03/07 PREDNISONE 20 MG TAB 518677 PREDNISONE Inactive LORTAB 7.5-500 MG/15ML ELIX 7.5 ml po q 4 hour prn cough LORTAB 7.5-500 MG/15ML ELIX HYDROCODONE-ACETAMINOPHEN Inacti ve ACETAMINOPHEN-CODEINE #3 300-30 MG TABS 1 PO Q 4-6 HR PRN PAIN 2 ACETAMINOPHEN-CODEINE #3 300-30 MG TABS 256525 ACETAMIN OPHEN-CODEINE Inactive CHERATUSSIN AC 100-10 MG/5ML SYRP take 1 tsp po q4-6 hours prn c ough CHERATUSSIN AC 100-10 MG/5ML SYRP 350061 GUAIFENESIN-CO DEINE Inactive ACETAMINOPHEN-CODEINE #3 300-30 MG TABS 1 tablet po q 4-6hrs prn pain ACETAMINOPHEN-CODEINE #3 300-30 MG TABS 762041 ACETAMIN OPHEN-CODEINE Inactive HYDROCODONE-ACETAMINOPHEN 5-325 MG TABS 1 po q 6hr PRN cough 201 05/09/16 HYDROCODONE-ACETAMINOPHEN 5-325 MG TABS 392671 HYDROCODONE-ACETAMINOPHEN Inactive AVELOX 400 MG TABS 1 tab by mouth daily A VELOX 400 MG TABS 766164 MOXIFLOXACIN HCL Inactive CHERATUSSIN AC 100-10 MG/5ML SYRP 1 tsp by mouth every 4 hours as needed for cough CHERATUSSIN AC 100-10 MG/5ML SYRP 213711 GUAIFENESIN-CODEINE Inactive TERBINAFINE HCL 250 MG TABS 1 qDay TERBINAFINE HCL 250 MG TABS 058695 TERBINAFINE HCL Inactive CHERATUSSIN AC 100-10 MG/5ML SYRP 1 tsp by mouth every 4 hours as needed for cough CHERATUSSIN AC 100-10 MG/5ML SYRP 669600 GUAIFENESIN-CODEINE Inactive ACETAMINOPHEN-CODEINE #3 300-30 MG TABS 1 PO Q 4-6 HRS PRN PAIN ACETAMINOPHEN-CODEINE #3 300-30 MG TABS 391959 ACETAMINOPHEN-CODEIN E Inactive CHERATUSSIN AC 100-10 MG/5ML SYRP 1 tsp by mouth every 4 hours as needed for cough CHERATUSSIN AC 100-10 MG/5ML SYRP 366740 GUAIFENESIN-CODEINE Inactive AUGMENTIN 875-125 MG TAB 1 tab by mouth twice daily with food 20 12/03/31 AUGMENTIN 875-125 MG TAB 660379 AMOXICILLIN-POT CLAVULA EFE Inactive CHERATUSSIN AC 100-10 MG/5ML SYRP take one tsp po Q 6hours prn c ough CHERATUSSIN AC 100-10 MG/5ML SYRP 773313 GUAIFENESIN-CO DEINE Inactive PROPRANOLOL HCL 60 MG TABS 1 PO Q D P ROPRANOLOL HCL 60 MG TABS 185360 PROPRANOLOL HCL Inactive TOPAMAX 50 MG TABS take 1 tab po BID for migraines. 12/07/10 TOPAMAX 50 MG TABS 913283 TOPIRAMATE Inactive TOPAMAX 25 MG TABS 1 qHS x 1 week, then 1 BID x 1 week, then 1 qAM and 2 qHS x 1 week, then 2 BID (migraine prevention) TOPAMAX 2 5 MG TABS 195047 TOPIRAMATE Inactive LYRICA 75 MG CAPS TAKE 1 CAPSULE BY MOUTH TWICE DAILY LYRICA 75 MG CAPS PREGABALIN Inactive SYMBICORT 160-4.5 MCG/ACT AERO 2 puffs bid with rinse after 2011 SYMBICORT 160-4.5 MCG/ACT AERO BUDESONIDE-FORMOT SÁNCHEZ FUMARATE Inactive PROMETHAZINE-CODEINE 6.25-10 MG/5ML SYRP 1 tsp by mouth ever y 8 hours prn cough PROMETHAZINE-CODEINE 6.25-10 MG/5ML SYRP 481344 PROMETHAZINE-CODEINE Inactive CYMBALTA 30 MG CPEP 1 cap by mouth daily CYMBALTA 30 MG CPEP 441252 DULOXETINE HCL Inactive PREMARIN 0.625 MG TABS TAKE 1 TAB BY MOUTH DAILY 07/25 PREMARIN 0.625 MG TABS ESTROGENS CONJUGATED Inactive ZITHROMAX Z-REYNA 250 MG TABS 2 today, then 1 daily for 4 days 201 04/09/17 ZITHROMAX Z-REYNA 250 MG TABS 8504449 AZITHROMYCIN Inac tive CEFDINIR 300 MG CAPS [...] q days 2-5 ZITHROMAX 250 MG TAB 1621566 AZITHROMYCIN Inactive CEFDINIR 300 MG CAPS by mouth twice a day CEFDINIR 300 MG CAPS 20020704 CEFDINIR Inactive PREDNISONE 20 MG TAB 2 tabs daily for 3 days, 1 t ab daily for 3 days, 1/2 tab daily for 2 days PREDNISONE 20 MG TAB 584590 PREDNISON E Inactive AVELOX 400 MG TABS 1 tab by mouth daily A VELOX 400 MG TABS 551121 MOXIFLOXACIN HCL Inactive AVELOX 400 MG TABS 1 tab by mouth daily A VELOX 400 MG TABS 472290 MOXIFLOXACIN HCL Inactive PREDNISONE 20 MG TAB Take 3 tabs daily for 3 days , 2 tabs daily for 3 days, 1 tab daily for 3 days, 1/2 tab daily for 3 days PREDNISONE 20 MG TAB 991752 PREDNISONE Inactive LEVAQUIN 500 MG TABS take one po QD LEVAQUIN 50 0 MG TABS 972333 LEVOFLOXACIN Inactive AZITHROMYCIN 250 MG TABS 2 po qd x 1 day, then 1 po qd x 4 days AZITHROMYCIN 250 MG TABS 9751446 AZITHROMYCIN Inactiv e MEDROL (REYNA) 4 MG TABS 6 tabs on day 1, 5 tabs on d ay 2, 4 tabs on day 3, 3 tabs on day 4, 2 tabs on day 5, 1 tab on day 6 MEDROL (REYNA) 4 MG TABS METHYLPREDNISOLONE Inactive CHERATUSSIN AC 100-10 MG/5ML SYRP 5ml po q6hr PRN Cough CHERATUSSIN AC 100-10 MG/5ML SYRP 782034 GUAIFENESIN-CODEINE Inacti ve TRIAMCINOLONE ACETONIDE 0.1 % CREA apply three times daily prn r beatrice TRIAMCINOLONE ACETONIDE 0.1 % CREA 3403223 TRIAMCINOLONE ACETONIDE Inactive AZITHROMYCIN 250 MG TABS 2 po qd x 1 day, then 1 po qd x 4 days AZITHROMYCIN 250 MG TABS 3723891 AZITHROMYCIN Inactiv e MEDROL (REYNA) 4 MG [...] days 20 13/03/08 AMOXICILLIN 500 MG CAP 082064 AMOXICILLIN Inactive AMOXICILLIN 500 MG CAP 1 tab by mouth 3 times daily x 10 days 20 14/04/28 AMOXICILLIN 500 MG CAP 076217 AMOXICILLIN Inactive ZITHROMAX 250 MG TAB 2 po today, then 1 po q days 2-5 ZITHROMAX 250 MG TAB 8277435 AZITHROMYCIN Inactive Vital Signs Date Name Value Unit Range Description blood pressure, diastolic - 8462-4 64 mm[Hg] [...] - 3141-9 133.6 [lb_av] Weigh t Measured blood pressure, diastolic - 8462-4 78 mm[Hg] BP srinivasan blood pressure, systolic - 8480-6 113 mm[Hg] BP sys pulse rate E&M - 8867-4 78 /min H eart rate temperature E&M 97.9 [degF] Body temp erature weight E&M - 3141-9 128 [lb_av] Weigh t Measured blood pressure, diastolic - 8462-4 80 mm[Hg] BP srinivasan blood pressure, systolic - 8480-6 121 mm[Hg] BP sys pulse rate E&M - 8867-4 87 /min H eart rate temperature E&M 97.1 [degF] Body temp erature weight E&M - 3141-9 128.44 [lb_av] Weigh t Measured Diagnostic Results Date Name Value Unit Range Description Lab Report: Erythrocyte Sed Rate, CBC - Hematology mean corpuscular hemoglobin, RBC 30.6 pg 27. 0-31.2 mean corpuscular hemoglobin concentration, RBC 34.1 G/DL % 31.8-35.4 red blood cell distribution width 12.8 % 11 .6-14.8 platelet count 371 10^3/MM^3 10*3/mm3 244-064 0910/10/23 mean corpuscular volume, RBC 90 fL 80-97 hematocrit, blood 43.9 % 36.0-46.0 hemoglobin, blood 15.0 g/dL 12.0-16.0 erythrocyte (RBC) count 4.89 10^6/MM^3 10*6/mm3 4.04-5.4 8 leukocyte count, blood 4.1 10^3/MM^3 10*3/mm3 4.6-10.2 Encounters Code Encounter Date Provider Facility CPT-13904 Level 3 Est. Patient 13:19:20 CDT Carlotn rich MD [facility] CPT-96433 Level 3 Est. Patient 13:06:43 CDT Ridge tam DO [facility] CPT-22237 Level 3 Est. Patient 10:03:07 CDT Perez Mora MD Formerly named [facility]-11534 Level 3 Est. Patient 19:50:35 PRODUCT BUILDER Carlton rich MD [facility] CPT-49258 Level 4 Est. Patient 18:05:01 PRODUCT BUILDER Carlton rich MD [facility] CPT-50384 Level 3 Est. Patient 10:45:55 PRODUCT BUILDER Hugo Restrepo MD Formerly named [facility]-53493 Level 3 Est. Patient 14:12:49 CDT Griffin HERNANDEZ [facility] CPT-35450 Level 3 Est. Patient 17:37:24 CDT Carlton rich MD Former[facility] named [facility]-49107 Level 3 Est. Patient 16:51:54 CDT Carlton rich MD [facility] CPT-19591 Level 3 Est. Patient 12:18:11 CDT Hugo Restrepo MD Formerly named [facility]-59289 Level 3 Est. Patient 11:30:25 CDT Marcy crisostomo MD PhD Formerly named [facility]-07352 Level 3 Est. Patient 12:00:47 PRODUCT BUILDER Carlton rich MD [facility] CPT-33384 Level 3 Est. Patient 16:31:06 PRODUCT BUILDER Carlton rich MD [facility] CPT-63418 Level 3 Est. Patient 16:23:24 PRODUCT BUILDER Ridge tam [facility] CPT-25275 Level 3 Est. Patient 12:34:12 CDT Carlton rich MD [facility] CPT-31347 Level 2 Est. Patient 15:43:33 CDT Robi armstrong MD [facility] CPT-70459 Level 4 Est. Patient 14:04:44 CDT Carlton rich MD [facility] CPT-50180 Level 3 Est. Patient 05:47:59 CDT Ridge tam [facility] CPT-90221 Level 3 Est. Patient 13:12:53 PRODUCT BUILDER Carlton rich MD [facility] CPT-41639 Level 3 Est. Patient 14:26:53 CDT Hugo Restrepo MD [facility] Procedures Code Procedure Name Date Entry Date Standard Desc ription CPT-32476 Hip bilat min 2V w AP pelvis 13:16:20 CDT 2 CPT-32968 Pelvis only 13:07:33 CDT CPT-43108 Spec Collection and Handling Fee 11:25:12 C DT CPT-34938 Fluzone Quadrivalent Intramuscular Suspe nsion 0.5 ML 14:31:55 CDT CPT-94157 Abx/Therapy Injection 13:28:47 PRODUCT BUILDER CPT-J2930 Solu Medrol 125 mg (Methyl Prednisolone Sodium Succinate) 12:00:47 PRODUCT BUILDER CPT-80383 Venipuncture Draw Fee 11:33:31 CDT CPT-63772 EKG Trac and Interp 11:21:09 CDT CPT-38202 Chest 2V Frontal and Lat 11:21:09 CDT 12/15 CPT-68994 Venipuncture Draw Fee 08:02:34 CDT CPT-10352 Chest 2V Frontal and Lat 05:47:59 CDT 06/05
--- OUTSIDE RECORDS SUMMARY | 2019-10-08 08:18 | XMS REPORT | Clinical Summary ---
Author Author Caitlin, Juliana Martinez Organization [facility] Address Unknown Phone Unavailable Allergies, Adverse Reactions, [...] gastrointestinal tract FH DIABETES V18.0 Active Carlton uH MD Family history of diabetes mellitus MAXILLARY [...] subpopulat ions Hip pain, left 719.45 Active iRdge Bess DO Pain in joint involving pelvic [...] MD Acute pharyngitis Rhinitis, acute 460 Resolved uHgo Measn Acute nasopharyngitis [common cold] Sinusitis 473.9 Resolved [...] PRN Cough 20 14/09/04 HYDROCOD POLST-CHLORPHEN POLST 79526373319 Active Elise Whitmore APRN Active ZITHROMAX 250 MG TAB 2 po today, then 1 po q days 2-5 AZITHROMYCIN 80315531899 No Longer Active Elise Whitmore APRN Acti ve TUSSIONEX PENNKINETIC ER 10-8 MG/5ML LQCR 5 ml twice a day a s needed for cough HYDROCOD POLST-CHLORPHEN POLST 31976681480 N o Longer Active Elise Whitmore APRN Active MONTELUKAST SODIUM 10 MG ORAL TABS 1 po daily for Allergy 6 MONTELUKAST SODIUM 36917145028 Active ALFREDO Holly Act nael TUSSIONEX PENNKINETIC ER 10-8 MG/5ML LQCR 5ml po q12hr PRN Cough HYDROCOD POLST-CHLORPHEN POLST 68822599877 No Longer Active Hugo Restrepo MD Active GABAPENTIN 100 MG CAPS 1 po BID for fibromyalgia GABAPENTIN 38081788883 Active Elise Whitmore APRN Active LYRICA 100 MG CAPS Take 1 tab po BID for fibromyalgia PREGABALIN 03151101709 No Longer Active Elise Whitmore APRN Acti ve PROAIR HFA 108 (90 BASE) MCG/ACT AERS 2 puffs four times a d ay as needed ALBUTEROL SULFATE 48289384167 Active Elise Whitmore APRN Active MUCINEX DM MAXIMUM STRENGTH 60-1200 MG [id number] 1 tab po q am 2016 DEXTROMETHORPHAN-GUAIFENESIN 80329425985 Active Jillina Cesarl OFFICE COPY SELECTOR Active PREDNISONE 20 MG TAB 2 tabs daily for 3 days, 1 t ab daily for 3 days, 1/2 tab daily for 2 days PREDNISONE 69455376172 No Longer Active Jillina Frakerriel OFFICE COPY SELECTOR Active TUSSIONEX PENNKINETIC ER 10-8 MG/5ML ORAL LQCR 5 mL PO q 12 hrs PRN cough HYDROCOD POLST-CHLORPHEN POLST 28058448565 No Longer Active Jillina Frazell OFFICE COPY SELECTOR Active FLUTICASONE PROPIONATE 50 MCG/ACT SUSP 2 sprays each n ostril daily until bottle is empty FLUTICASONE PROPIONATE 49853419391 No Longer Ac tive Jillina Frazell OFFICE COPY SELECTOR Active ASMANEX 60 METERED DOSES 220 MCG/INH AEPB 1 puff bid with ri nse after MOMETASONE FUROATE 72779215343 No Longer Active Jillina Darlin ell OFFICE COPY SELECTOR Active ZITHROMAX Z-REYNA 250 MG TABS 2 today, then 1 daily for 4 days 201 09/29/14 AZITHROMYCIN 86290420549 No Longer Active Elise Whitmore APRN Active TUSSIONEX PENNKINETIC ER 10-8 MG/5ML LQCR 5ml po q12hr PRN Cough HYDROCOD POLST-CHLORPHEN POLST 73590422727 No Longer Active Elise Whitmore OFFICE COPY SELECTOR Active MUCINEX D 60-600 MG [id number] 1 tab po q am PSEUDOEPHEDRINE-GUAIFENESIN 91516027141 Active Jillina Frazell OFFICE COPY SELECTOR Active PREDNISONE 20 MG TAB 2 tabs daily for 3 days, 1 t ab daily for 3 days, 1/2 tab daily for 2 days PREDNISONE 36844030432 No Longer Active Jillina Frazell OFFICE COPY SELECTOR Active AMOXICILLIN 500 MG CAPS 2 po BID x 10 days AMOX ICILLIN 00445881429 No Longer Active Jillina Frazell OFFICE COPY SELECTOR Active SINGULAIR 10 MG TABS 1 po qday for allergies 2 MONTELUKAST SODIUM 94171059560 No Longer Active Carlton Hu MD Acti ve LEVAQUIN 500 MG TAB 1 tablet by mouth daily LEV OFLOXACIN 69243188389 No Longer Active Carlton Hu MD Active FLUTICASONE PROPIONATE 50 MCG/ACT SUSP 2 sprays each n ostril daily for 2 weeks, then 1 spray each nostril daily. FLUTICASONE PRO PIONATE 60042833359 Active Elise Whitmore APRN Active ZITHROMAX 250 MG TAB 2 po today, then 1 po q days 2-5 AZITHROMYCIN 97420278024 No Longer Active Elise Whitmore APRN Acti ve XANAX 0.5 MG TABS one tablet by mouth daily prn anxiety ALPRAZOLAM 96779393904 Active Elise Whitmore APRN Active CYMBALTA 30 MG CPEP 1 cap by mouth daily for depression DULOXETINE HCL 44959793781 Active Carlton Hu MD Active CEFDINIR 300 MG CAPS 1 po BID x 10 days CEFDINI R 85595223722 No Longer Active Carlton Hu MD Active ZOCOR 40 MG TAB 1 tab by mouth daily SIMVASTATI N 95884304727 No Longer Active Carlton Hu MD Active CYCLOBENZAPRINE HCL 10 MG TABS 1 tablet by mouth BID prn had cherelle n CYCLOBENZAPRINE HCL 24255502021 No Longer Active Carlton Hu MD Active LEVOFLOXACIN 500 MG ORAL TABS 1 tab PO daily x 10 days LEVOFLOXACIN 16052032186 No Longer Active Carlton Hu MD Acti ve PREDNISONE 20 MG ORAL TABS 3 tab PO qd x 2d, 2 tab PO qd x 2d, 1 tab PO qd x 2d, 1/2 tab PO qd x 2d PREDNISONE 86112662013 No Longer Active Carlton Hu MD Active FLUTICASONE PROPIONATE 50 MCG/ACT SUSP 1 to 2 sprays each no stril daily FLUTICASONE PROPIONATE 69551541397 No Longer Active T jaz HERNANDEZ Active CHERATUSSIN AC 100-10 MG/5ML SYRP 1 tsp by mouth every 4 hours as needed for cough GUAIFENESIN-CODEINE 81332230886 No Longer Activ e Blaine HERNANDEZ Active PROMETHAZINE-CODEINE 6.25-10 MG/5ML SYRP 1 tsp by mout h every 6 hours if needed for cough PROMETHAZINE-CODEINE 27052896410 No Long er Active Blaine HERNANDEZ Active CHERATUSSIN AC 100-10 MG/5ML SYRP 1 tsp by mouth every 4 hours as needed for cough GUAIFENESIN-CODEINE 57271376914 No Longer Activ e Blaine HERNANDEZ Active ZITHROMAX Z-REYNA 250 MG TABS 2 today, then 1 daily for 4 days 201 08/30/03 AZITHROMYCIN 05539785397 No Longer Active Columba Raida Act nael ZITHROMAX 250 MG TAB 2 po today, then 1 po q days 2-5 AZITHROMYCIN 77131722980 No Longer Active Carlton Hu MD Acti ve ZITHROMAX Z-REYNA 250 MG TABS 2 today, then 1 daily for 4 days 201 08/07/20 AZITHROMYCIN 61901444100 No Longer Active Columba Raida Act nael AUGMENTIN 875-125 MG TAB 1 po BID x 10 days AMOXICILLIN- POT CLAVULANATE 80043053439 No Longer Active Jillina Frazell OFFICE COPY SELECTOR Active ZITHROMAX 250 MG TAB 2 po today, then 1 po q days 2-5 AZITHROMYCIN 57893033643 No Longer Active Carlton Hu MD Acti ve TRAMADOL HCL 50 MG TABS 1 po tid with ES Tylenol TRAMADOL HCL 84194271378 Active Carlton Hu MD Active PREMARIN 0.625 MG TABS TAKE 1 TAB BY MOUTH DAILY 07/25 ESTROGENS CONJUGATED 71990949311 No Longer Active Ridge Bess DO Active CYMBALTA 30 MG CPEP 1 cap by mouth daily DULOXE SNEHA HCL 85410392372 No Longer Active Ridge Bess DO Active AMOXICILLIN 500 MG CAP 1 tab by mouth 3 times daily x 10 days 20 14/04/28 AMOXICILLIN 48407629230 No Longer Active Carlton Hu MD Active AMOXICILLIN 500 MG CAP 1 tab by mouth 3 times daily x 10 days 20 13/03/08 AMOXICILLIN 65205207456 No Longer Active Carlton Hu MD Active PROMETHAZINE-CODEINE 6.25-10 MG/5ML SYRP 1 tsp by mouth ever y 8 hours prn cough PROMETHAZINE-CODEINE 50665832652 No Longer Active Robert Hu MD Active MEDROL (REYNA) 4 MG TABS 6 pills x 1 day, then 5 pill s x 1 day then 4 pills x 1 day, then 3 pills x 1 day, then 2 pills x 1 day, then 1 pill x 1 day, then stop METHYLPREDNISOLONE 59011623763 No Longer Active Parris Mora MD Active AZITHROMYCIN 250 MG TABS 2 po qd x 1 day, then 1 po qd x 4 days AZITHROMYCIN 25860793991 No Longer Active Perez Mora MD Active SYMBICORT 160-4.5 MCG/ACT AERO 2 puffs bid with rinse after 2011 BUDESONIDE-FORMOTEROL FUMARATE 68393712963 No Longer Active Perez Mora MD Active LYRICA 75 MG CAPS TAKE 1 CAPSULE BY MOUTH TWICE DAILY 2013 PREGABALIN 35872732570 No Longer Active Carlton Hu MD Active TOPAMAX 25 MG TABS 1 qHS x 1 week, then 1 BID x 1 week, then 1 qAM and 2 qHS x 1 week, then 2 BID (migraine prevention) TOPIRAMAT E 51920375351 No Longer Active Jerica FUENTES Active TOPAMAX 50 MG TABS take 1 tab po BID for migraines. 12/07/10 TOPIRAMATE 06852522786 No Longer Active Jerica FUENTES Ac tive TOPAMAX 100 MG TABS Take 1 tablet po bid TOPIRAMATE 4999 0237369 Active Elise Whitmore APRN Active TRIAMCINOLONE ACETONIDE 0.1 % CREA apply three times daily prn r beatrice TRIAMCINOLONE ACETONIDE 77715166605 No Longer Active Carlton Hu MD Active PAXIL 40 MG TAB take 1 tab po qday for depression PAROXETINE HCL 82521645610 Active Elise Whitmore APRN Active CHERATUSSIN AC 100-10 MG/5ML SYRP 5ml po q6hr PRN Cough GUAIFENESIN-CODEINE 98117318407 No Longer Active Carlton Hu MD Active MEDROL (REYNA) 4 MG TABS 6 tabs on day 1, 5 tabs on d ay 2, 4 tabs on day 3, 3 tabs on day 4, 2 tabs on day 5, 1 tab on day 6 METHYLPREDNISOLONE 01877466523 No Longer Active Perez Mora MD Active AZITHROMYCIN 250 MG TABS 2 po qd x 1 day, then 1 po qd x 4 days AZITHROMYCIN 73117152193 No Longer Active Perez Mora MD Active PROPRANOLOL HCL 60 MG TABS 1 PO Q D PROPRANOL OL HCL 82785025538 No Longer Active Perez Mora MD Active CHERATUSSIN AC 100-10 MG/5ML SYRP take one tsp po Q 6hours prn c ough GUAIFENESIN-CODEINE 44078368284 No Longer Active Perez Means Active AUGMENTIN 875-125 MG TAB 1 tab by mouth twice daily with food 12/03/31 AMOXICILLIN-POT CLAVULANATE 91792721335 No Longer Active Chanel Mora MD Active CHERATUSSIN AC 100-10 MG/5ML SYRP 1 tsp by mouth every 4 hours as needed for cough GUAIFENESIN-CODEINE 34743074308 No Longer Activ e Hugo Restrepo MD Active ACETAMINOPHEN-CODEINE #3 300-30 MG TABS 1 PO Q 4-6 HRS PRN PAIN ACETAMINOPHEN-CODEINE 55819275877 No Longer Active Hugo Restrepo MD Active LEVAQUIN 500 MG TABS take one po QD LEVOFLOXACI N 33186391168 No Longer Active Griffin HERNANDEZ Active PREDNISONE 20 MG TAB Take 3 tabs daily for 3 days , 2 tabs daily for 3 days, 1 tab daily for 3 days, 1/2 tab daily for 3 days P REDNISONE 85337638565 No Longer Active Carlton Hu MD Active AVELOX 400 MG TABS 1 tab by mouth daily MOXIFLO XACIN HCL 37733831463 No Longer Active Carlton Hu MD Active CHERATUSSIN AC 100-10 MG/5ML SYRP 1 tsp by mouth every 4 hours as needed for cough GUAIFENESIN-CODEINE 39026070332 No Longer Activ e Hugo Restrepo MD Active AVELOX 400 MG TABS 1 tab by mouth daily MOXIFLO XACIN HCL 93690716720 No Longer Active Marcy De La Rosa MD PhD Active TERBINAFINE HCL 250 MG TABS 1 qDay TERBINAF INE HCL 47779671429 No Longer Active Marcy De La Rosa MD PhD Active CHERATUSSIN AC 100-10 MG/5ML SYRP 1 tsp by mouth every 4 hours as needed for cough GUAIFENESIN-CODEINE 72620056673 No Longer Activ e Marcy De La Rosa MD PhD Active AVELOX 400 MG TABS 1 tab by mouth daily MOXIFLO XACIN HCL 33472552066 No Longer Active Marcy De La Rosa MD PhD Active HYDROCODONE-ACETAMINOPHEN 5-325 MG TABS 1 po q 6hr PRN cough 201 05/09/16 HYDROCODONE-ACETAMINOPHEN 07166234923 No Longer Active Marcy De La Rosa MD PhD Active PREDNISONE 20 MG TAB 2 tabs daily for 3 days, 1 t ab daily for 3 days, 1/2 tab daily for 2 days PREDNISONE 25983451937 No Longer Active Carlton Hu MD Active CEFDINIR 300 MG CAPS by mouth twice a day CEFDI ODILIA 08656197668 No Longer Active Carlton Hu MD Active HYDROCHLOROTHIAZIDE 25 MG TABS 1 TAB PO DAILY H YDROCHLOROTHIAZIDE 99338121192 Active Carlton Hu MD Active ACETAMINOPHEN-CODEINE #3 300-30 MG TABS 1 tablet po q 4-6hrs prn pain ACETAMINOPHEN-CODEINE 18420097312 No Longer Active Ridge Bess DO Active ZITHROMAX 250 MG TAB 2 po today, then 1 po q days 2-5 AZITHROMYCIN 06272989422 No Longer Active Carlton Hu MD Acti ve CHERATUSSIN AC 100-10 MG/5ML SYRP take 1 tsp po q4-6 hours prn c ough GUAIFENESIN-CODEINE 47933300334 No Longer Active Carlton Hu MD Active ACETAMINOPHEN-CODEINE #3 300-30 MG TABS 1 PO Q 4-6 HR PRN PAIN 2 ACETAMINOPHEN-CODEINE 98710978209 No Longer Active Carlton rich MD Active LORTAB 7.5-500 MG/15ML ELIX 7.5 ml po q 4 hour prn cough HYDROCODONE-ACETAMINOPHEN 83211708008 No Longer Active Carlton Hu MD Active PREDNISONE 20 MG TAB 1 po bid 3 days, then 1 po q day 3 days 201 05/03/07 PREDNISONE 47900000403 No Longer Active Carlton Hu MD Active ELMIRON 100 MG CAPS 2 tablets in the am and 1 tablet at hs PENTOSAN POLYSULFATE SODIUM 08653305411 Active Carlton Hu MD Ac tive CEFDINIR 300 MG CAPS by mouth twice a day CEFDI ODILIA 04556152235 No Longer Active Carlton Hu MD Active CEFDINIR 300 MG CAPS by mouth twice a day CEFDI ODILIA 10640594658 No Longer Active Carlton Hu MD Active CEFDINIR 300 MG CAPS by mouth twice a day CEFDI ODILIA 50641802691 No Longer Active Carlton Hu MD Active TESSALON PERLES 100 MG CAP 1 tablet by mouth 3 times daily a s needed for cough BENZONATATE 59812959179 No Longer Active Carlton bustamante MD Active CEFDINIR 300 MG CAPS by mouth twice a day CEFDI ODILIA 35973200894 No Longer Active Carlton Hu MD Active ZITHROMAX Z-REYNA 250 MG TABS 2 today, then 1 daily for 4 days 201 04/09/17 AZITHROMYCIN 57328507119 No Longer Active Hugo Restrepo MD Active TESSALON PERLES 100 MG CAP 1 tablet by mouth 3 times daily a s needed for cough TESSALON PERLES 100 MG CAP 433106 BENZONATATE I nactive PREDNISONE 20 MG TAB 1 po bid 3 days, then 1 po q day 3 days 201 05/03/07 PREDNISONE 20 MG TAB 331152 PREDNISONE Inactive LORTAB 7.5-500 MG/15ML ELIX 7.5 ml po q 4 hour prn cough LORTAB 7.5-500 MG/15ML ELIX HYDROCODONE-ACETAMINOPHEN Inacti ve ACETAMINOPHEN-CODEINE #3 300-30 MG TABS 1 PO Q 4-6 HR PRN PAIN 2 ACETAMINOPHEN-CODEINE #3 300-30 MG TABS ACETAMIN OPHEN-CODEINE Inactive CHERATUSSIN AC 100-10 MG/5ML SYRP take 1 tsp po q4-6 hours prn c ough CHERATUSSIN AC 100-10 MG/5ML SYRP 833373 GUAIFENESIN-CO DEINE Inactive ACETAMINOPHEN-CODEINE #3 300-30 MG TABS 1 tablet po q 4-6hrs prn pain ACETAMINOPHEN-CODEINE #3 300-30 MG TABS ACETAMIN OPHEN-CODEINE Inactive HYDROCODONE-ACETAMINOPHEN 5-325 MG TABS 1 po q 6hr PRN cough 201 05/09/16 HYDROCODONE-ACETAMINOPHEN 5-325 MG TABS 088494 HYDROCODONE-ACETAMINOPHEN Inactive AVELOX 400 MG TABS 1 tab by mouth daily A VELOX 400 MG TABS 924309 MOXIFLOXACIN HCL Inactive CHERATUSSIN AC 100-10 MG/5ML SYRP 1 tsp by mouth every 4 hours as needed for cough CHERATUSSIN AC 100-10 MG/5ML SYRP 597609 GUAIFENESIN-CODEINE Inactive TERBINAFINE HCL 250 MG TABS 1 qDay TERBINAFINE HCL 250 MG TABS 012794 TERBINAFINE HCL Inactive CHERATUSSIN AC 100-10 MG/5ML SYRP 1 tsp by mouth every 4 hours as needed for cough CHERATUSSIN AC 100-10 MG/5ML SYRP 001780 GUAIFENESIN-CODEINE Inactive ACETAMINOPHEN-CODEINE #3 300-30 MG TABS 1 PO Q 4-6 HRS PRN PAIN ACETAMINOPHEN-CODEINE #3 300-30 MG TABS ACETAMINOPHEN-CODEIN E Inactive CHERATUSSIN AC 100-10 MG/5ML SYRP 1 tsp by mouth every 4 hours as needed for cough CHERATUSSIN AC 100-10 MG/5ML SYRP 951219 GUAIFENESIN-CODEINE Inactive AUGMENTIN 875-125 MG TAB 1 tab by mouth twice daily with food 20 12/03/31 AUGMENTIN 875-125 MG TAB 719927 AMOXICILLIN-POT CLAVULA EFE Inactive CHERATUSSIN AC 100-10 MG/5ML SYRP take one tsp po Q 6hours prn c ough CHERATUSSIN AC 100-10 MG/5ML SYRP 187166 GUAIFENESIN-CO DEINE Inactive PROPRANOLOL HCL 60 MG TABS 1 PO Q D P ROPRANOLOL HCL 60 MG TABS 364647 PROPRANOLOL HCL Inactive TOPAMAX 50 MG TABS take 1 tab po BID for migraines. 12/07/10 TOPAMAX 50 MG TABS 688179 TOPIRAMATE Inactive TOPAMAX 25 MG TABS 1 qHS x 1 week, then 1 BID x 1 week, then 1 qAM and 2 qHS x 1 week, then 2 BID (migraine prevention) TOPAMAX 2 5 MG TABS 102523 TOPIRAMATE Inactive LYRICA 75 MG CAPS TAKE 1 CAPSULE BY MOUTH TWICE DAILY LYRICA 75 MG CAPS PREGABALIN Inactive SYMBICORT 160-4.5 MCG/ACT AERO 2 puffs bid with rinse after 2011 SYMBICORT 160-4.5 MCG/ACT AERO BUDESONIDE-FORMOT SÁNCHEZ FUMARATE Inactive PROMETHAZINE-CODEINE 6.25-10 MG/5ML SYRP 1 tsp by mouth ever y 8 hours prn cough PROMETHAZINE-CODEINE 6.25-10 MG/5ML SYRP 040270 PROMETHAZINE-CODEINE Inactive CYMBALTA 30 MG CPEP 1 cap by mouth daily CYMBALTA 30 MG CPEP 689095 DULOXETINE HCL Inactive PREMARIN 0.625 MG TABS TAKE 1 TAB BY MOUTH DAILY 07/25 PREMARIN 0.625 MG TABS ESTROGENS CONJUGATED Inactive CHERATUSSIN AC 100-10 MG/5ML SYRP 1 tsp by mouth every 4 hours as needed for cough CHERATUSSIN AC 100-10 MG/5ML SYRP 949668 GUAIFENESIN-CODEINE Inactive PROMETHAZINE-CODEINE 6.25-10 MG/5ML SYRP 1 tsp by mout h every 6 hours if needed for cough PROMETHAZINE-CODEINE 6.25-10 MG/5ML SYRP 986468 PROMETHAZINE-CODEINE Inactive CHERATUSSIN AC 100-10 MG/5ML SYRP 1 tsp by mouth every 4 hours as needed for cough CHERATUSSIN AC 100-10 MG/5ML SYRP 938676 GUAIFENESIN-CODEINE Inactive FLUTICASONE PROPIONATE 50 MCG/ACT SUSP 1 to 2 sprays each no stril daily FLUTICASONE PROPIONATE 50 MCG/ACT SUSP 5838051 FLUTICASONE PROPIONATE Inactive PREDNISONE 20 MG ORAL TABS 3 tab PO qd x 2d, 2 tab PO qd x 2d, 1 tab PO qd x 2d, 1/2 tab PO qd x 2d PREDNISONE 20 MG ORAL TABS 583245 PREDNISONE Inactive LEVOFLOXACIN 500 MG ORAL TABS 1 tab PO daily x 10 days LEVOFLOXACIN 500 MG ORAL TABS 753038 LEVOFLOXACIN Inactive CYCLOBENZAPRINE HCL 10 MG TABS 1 tablet by mouth BID prn had cherelle n CYCLOBENZAPRINE HCL 10 MG TABS 700987 CYCLOBENZAPRINE H CL Inactive ZOCOR 40 MG TAB 1 tab by mouth daily ZOCOR 40 M G TAB 041549 SIMVASTATIN Inactive TUSSIONEX PENNKINETIC ER 10-8 MG/5ML [...] empty FLUTICASONE PROPIONATE 50 MCG/ACT SUSP 17 53885 FLUTICASONE PROPIONATE Inactive TUSSIONEX PENNKINETIC ER 10-8 [...] 201 04/09/17 ZITHROMAX Z-REYNA 250 MG TABS 2501115 AZITHROMYCIN Inac tive CEFDINIR 300 MG CAPS [...] q days 2-5 ZITHROMAX 250 MG TAB 9589748 AZITHROMYCIN Inactive CEFDINIR 300 MG CAPS by mouth twice a day CEFDINIR 300 MG CAPS 20020704 CEFDINIR Inactive PREDNISONE 20 MG TAB 2 tabs daily for 3 days, 1 t ab daily for 3 days, 1/2 tab daily for 2 days PREDNISONE 20 MG TAB 731536 PREDNISON E Inactive AVELOX 400 MG TABS 1 tab by mouth daily A VELOX 400 MG TABS 941729 MOXIFLOXACIN HCL Inactive AVELOX 400 MG TABS 1 tab by mouth daily A VELOX 400 MG TABS 973443 MOXIFLOXACIN HCL Inactive PREDNISONE 20 MG TAB Take 3 tabs daily for 3 days , 2 tabs daily for 3 days, 1 tab daily for 3 days, 1/2 tab daily for 3 days PREDNISONE 20 MG TAB 969795 PREDNISONE Inactive LEVAQUIN 500 MG TABS take one po QD LEVAQUIN 50 0 MG TABS 471633 LEVOFLOXACIN Inactive AZITHROMYCIN 250 MG TABS 2 po qd x 1 day, then 1 po qd x 4 days AZITHROMYCIN 250 MG TABS 2035937 AZITHROMYCIN Inactiv e MEDROL (REYNA) 4 MG TABS 6 tabs on day 1, 5 tabs on d ay 2, 4 tabs on day 3, 3 tabs on day 4, 2 tabs on day 5, 1 tab on day 6 MEDROL (REYNA) 4 MG TABS 886621 METHYLPREDNISOLONE Inactive CHERATUSSIN AC 100-10 MG/5ML SYRP 5ml po q6hr PRN Cough CHERATUSSIN AC 100-10 MG/5ML SYRP 743742 GUAIFENESIN-CODEINE Inacti ve TRIAMCINOLONE ACETONIDE 0.1 % CREA apply three times daily prn r beatrice TRIAMCINOLONE ACETONIDE 0.1 % CREA 4819756 TRIAMCINOLONE ACETONIDE Inactive AZITHROMYCIN 250 MG TABS 2 po qd x 1 day, then 1 po qd x 4 days AZITHROMYCIN 250 MG TABS 9899020 AZITHROMYCIN Inactiv e MEDROL (REYNA) 4 MG TABS 6 pills x 1 day, then 5 pill s x 1 day then 4 pills x 1 day, then 3 pills x 1 day, then 2 pills x 1 day, then 1 pill x 1 day, then stop MEDROL (REYNA) 4 MG TABS 035294 METHYLPREDNISOLONE Inactive AMOXICILLIN 500 MG CAP 1 tab by mouth 3 times daily x 10 days 20 13/03/08 AMOXICILLIN 500 MG CAP 172492 AMOXICILLIN Inactive AMOXICILLIN 500 MG CAP 1 tab by mouth 3 times daily x 10 days 20 14/04/28 AMOXICILLIN 500 MG CAP 194948 AMOXICILLIN Inactive ZITHROMAX 250 MG TAB 2 po today, then 1 po q days 2-5 ZITHROMAX 250 MG TAB 4293486 AZITHROMYCIN Inactive AUGMENTIN 875-125 MG TAB 1 po BID x 10 days AUGMENTIN 875- 125 MG TAB 794533 AMOXICILLIN-POT CLAVULANATE Inactive ZITHROMAX Z-REYNA 250 MG TABS 2 today, then 1 daily for 4 days 201 08/07/20 ZITHROMAX Z-REYNA 250 MG TABS 8598046 AZITHROMYCIN Inac tive ZITHROMAX 250 MG TAB 2 po today, then 1 po q days 2-5 ZITHROMAX 250 MG TAB 2451942 AZITHROMYCIN Inactive ZITHROMAX Z-REYNA 250 MG TABS 2 today, then 1 daily for 4 days 201 08/30/03 ZITHROMAX Z-REYNA 250 MG TABS 3295452 AZITHROMYCIN Inac tive CEFDINIR 300 MG CAPS 1 po BID x 10 days C EFDINIR 300 MG CAPS 20020704 CEFDINIR Inactive ZITHROMAX 250 MG TAB 2 po today, then 1 po q days 2-5 ZITHROMAX 250 MG TAB 2692833 AZITHROMYCIN Inactive LEVAQUIN 500 MG TAB 1 tablet by mouth daily LEVAQUIN 500 MG TAB 041498 LEVOFLOXACIN Inactive SINGULAIR 10 MG TABS 1 po qday for allergies 2 SINGULAIR 10 MG TABS 20010504 MONTELUKAST SODIUM Inactive AMOXICILLIN 500 MG CAPS 2 po BID x 10 days AMOXICILLIN 500 MG CAPS 683704 AMOXICILLIN Inactive PREDNISONE 20 MG TAB 2 tabs daily for 3 days, 1 t ab daily for 3 days, 1/2 tab daily for 2 days PREDNISONE 20 MG TAB 089812 PREDNISON E Inactive ZITHROMAX Z-REYNA 250 MG TABS 2 today, then 1 daily for 4 days 201 09/29/14 ZITHROMAX Z-REYNA 250 MG TABS 9792586 AZITHROMYCIN Inac tive PREDNISONE 20 MG TAB 2 tabs daily for 3 days, 1 t ab daily for 3 days, 1/2 tab daily for 2 days PREDNISONE 20 MG TAB 351332 PREDNISON E Inactive ZITHROMAX 250 MG TAB 2 po today, then 1 po q days 2-5 ZITHROMAX 250 MG TAB 8317115 AZITHROMYCIN Inactive Vital Signs Date Name Value [...] Negative Encounters Code Encounter Date Provider Facility CPT-82158 Level 3 Est. Patient 12:17:50 CDT Hugo Restrepo MD [facility] CPT-36710 Level 3 Est. Patient 13:42:38 CDT Italo [facility] CPT-44670 Level 3 Est. Patient 13:23:51 CDT Diya cobian Formerly named [facility]-47118 Level 3 Est. 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 Patient 10:11:46 CDT Carlton rich MD [facility]-87159 Level 3 Est. Patient 17:29:43 CDT Elise And chelly [facility] CPT-53646 Level 3 Est. Patient 11:58:06 CDT Elise Guerrero asaelgiselle [facility] CPT-71100 Level 4 Est. Patient 14:36:51 CDT Carlton rich MD [facility]-04454 Level 3 Est. 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 Patient 09:45:49 MANAGER FAST FOOD Carlton rich MD [facility] CPT-43325 Level 3 Est. Patient 13:19:20 CDT Carlton rich MD [facility] CPT-45814 Level 3 Est. Patient 13:06:43 CDT Ridge tam DO [facility] CPT-72959 Level 3 Est. Patient 10:03:07 CDT Perez Mora MD [facility] CPT-23311 Level 3 Est. Patient 19:50:35 MANAGER FAST FOOD Carlton rich MD [facility] CPT-12781 Level 4 Est. Patient 18:05:01 MANAGER FAST FOOD Carlton rich MD [facility] CPT-42342 Level 3 Est. Patient 10:45:55 MANAGER FAST FOOD Hugo Restrepo MD [facility] [place]-85189 Level 3 Est. Patient 14:12:49 CDT Griffin lincoln [facility] CPT-26381 Level 3 Est. Patient 17:37:24 CDT Carlton rich MD [facility] CPT-33041 Level 3 Est. Patient 16:51:54 CDT Carlton rich MD [facility] [place]-33359 Level 3 Est. Patient 12:18:11 CDT Hugo Restrepo MD [facility] [place]-51969 Level 3 Est. Patient 11:30:25 CDT Marcy crisostomo MD PhD [facility] CPT-04813 Level 3 Est. Patient 12:00:47 MANAGER FAST FOOD Carlton rich MD [facility] [place]-52029 Level 3 Est. Patient 16:31:06 MANAGER FAST FOOD Carlton rich MD [facility] [place]-31443 Level 3 Est. Patient 16:23:24 MANAGER FAST FOOD Ridge tam [facility] CPT-91082 Level 3 Est. Patient 12:34:12 CDT Carlton rich MD [facility] CPT-12306 Level 2 Est. Patient 15:43:33 CDT Robi armstrong MD [facility] CPT-98624 Level 4 Est. Patient 14:04:44 CDT Carlton rich MD [facility] [place]-07385 Level 3 Est. Patient 05:47:59 CDT Ridge tam [facility] CPT-92712 Level 3 Est. Patient 13:12:53 MANAGER FAST FOOD Carlton rich MD [facility] [place]-45928 Level 3 Est. Patient 14:26:53 CDT Hugo Restrepo MD [facility] Procedures Code Procedure Name Date Entry Date Standard Desc ription CPT-J1040 Depo Medrol 80 mg (Methyl Prednisolone A cetate) 10:42:44 CDT CPT-J1100 Decadron 8mg (Dexamethasone) 10:42:44 CDT 2 CPT-J0696 Rocephin 1gm Inj Solr 14:32:13 CDT CPT-J1020 Depo Medrol 60 mg (Methyl Prednisolone A cetate) 14:32:13 CDT CPT-J1100 Decadron 6mg (Dexamethasone) 14:32:13 CDT 2 CPT-19963 Hip bilat min 2V w AP pelvis 13:16:20 CDT 2 CPT-75920 Pelvis only 13:07:33 CDT CPT-71571 Spec Collection and Handling Fee 11:25:12 C DT CPT-71959 Fluzone Quadrivalent Intramuscular Suspe nsion 0.5 ML 14:31:55 CDT CPT-33320 Abx/Therapy Injection 13:28:47 MANAGER FAST FOOD CPT-J2930 Solu Medrol 125 mg (Methyl Prednisolone Sodium Succinate) 12:00:47 MANAGER FAST FOOD CPT-[id number] Venipuncture Draw Fee 11:33:31 CDT CPT-71442 EKG Trac and Interp 11:21:09 CDT CPT-36071 Chest 2V Frontal and Lat 11:21:09 CDT 12/15 CPT-41686 Venipuncture Draw Fee 08:02:34 CDT CPT-10562 Chest 2V Frontal and Lat 05:47:59 CDT 06/05
--- OUTSIDE RECORDS SUMMARY | 2019-10-08 08:19 | XMS REPORT | Clinical Summary ---
Author Author Caitlin, Juliana Maritnez Organization [facility] Address Unknown Phone Unavailable Allergies, Adverse [...] (without mention of hemorrhage) HYPERLIPIDEMIA 272.4 Active Carltno Hu MD Other and unspecified hyperlipidemia HEALTH [...] times daily for 7 days POTASSIUM CHLORIDE 13144402057 Active Columba Raida Active TUSSIONEX PENNKINETIC ER 10-8 MG/5ML LQCR 5ml po q12hr PRN Cough 20 14/09/04 HYDROCOD POLST-CHLORPHEN POLST 89878111470 Active Elise Whitmore APRN Active ZITHROMAX 250 MG TAB 2 po today, then 1 po q days 2-5 AZITHROMYCIN 40770161539 No Longer Active Elise Whitmore APRN Acti ve TUSSIONEX PENNKINETIC ER 10-8 MG/5ML LQCR 5 ml twice a day a s needed for cough HYDROCOD POLST-CHLORPHEN POLST 46702682575 N o Longer Active Elise Whitmore APRN Active MONTELUKAST SODIUM 10 MG ORAL TABS 1 po daily for Allergy 6 MONTELUKAST SODIUM 67724379415 Active Maria Luisa Sanabria, RMA Act nael TUSSIONEX PENNKINETIC ER 10-8 MG/5ML LQCR 5ml po q12hr PRN Cough HYDROCOD POLST-CHLORPHEN POLST 18217225030 No Longer Active Hugo Restrepo MD Active GABAPENTIN 100 MG CAPS 1 po BID for fibromyalgia GABAPENTIN 30311194832 Active Elise Whitmore APRN Active LYRICA 100 MG CAPS Take 1 tab po BID for fibromyalgia PREGABALIN 00318166418 No Longer Active Elise Whitmore APRN Acti ve PROAIR HFA 108 (90 BASE) MCG/ACT AERS 2 puffs four times a d ay as needed ALBUTEROL SULFATE 98917659192 Active Elise Whitmore APRN Active MUCINEX DM MAXIMUM STRENGTH 60-1200 MG [id number] 1 tab po q am 2016 DEXTROMETHORPHAN-GUAIFENESIN 15168353225 Active Jillina Frabrayan RICEN Active PREDNISONE 20 MG TAB 2 tabs daily for 3 days, 1 t ab daily for 3 days, 1/2 tab daily for 2 days PREDNISONE 37080425384 No Longer Active Jillina Frakerriel ADMISSIONS COUNSELOR Active TUSSIONEX PENNKINETIC ER 10-8 MG/5ML ORAL LQCR 5 mL PO q 12 hrs PRN cough HYDROCOD POLST-CHLORPHEN POLST 42506882002 No Longer Active Jillina Frazell ADMISSIONS COUNSELOR Active FLUTICASONE PROPIONATE 50 MCG/ACT SUSP 2 sprays each n ostril daily until bottle is empty FLUTICASONE PROPIONATE 24246373694 No Longer Ac tive Jillina Frazell ADMISSIONS COUNSELOR Active ASMANEX 60 METERED DOSES 220 MCG/INH AEPB 1 puff bid with ri nse after MOMETASONE FUROATE 01967480458 No Longer Active Diya meneses ADMISSIONS COUNSELOR Active ZITHROMAX Z-REYNA 250 MG TABS 2 today, then 1 daily for 4 days 201 09/29/14 AZITHROMYCIN 62154541739 No Longer Active Elise Whitmore ADMISSIONS COUNSELOR Active TUSSIONEX PENNKINETIC ER 10-8 MG/5ML LQCR 5ml po q12hr PRN Cough HYDROCOD POLST-CHLORPHEN POLST 14127005546 No Longer Active Elise Whitmore ADMISSIONS COUNSELOR Active MUCINEX D 60-600 MG [id number] 1 tab po q am PSEUDOEPHEDRINE-GUAIFENESIN 72598389300 Active Diya De Guzman ADMISSIONS COUNSELOR Active PREDNISONE 20 MG TAB 2 tabs daily for 3 days, 1 t ab daily for 3 days, 1/2 tab daily for 2 days PREDNISONE 32418922656 No Longer Active Diya De Guzman ADMISSIONS COUNSELOR Active AMOXICILLIN 500 MG CAPS 2 po BID x 10 days AMOX ICILLIN 62704538423 No Longer Active Diya De Guzman ADMISSIONS COUNSELOR Active SINGULAIR 10 MG TABS 1 po qday for allergies 2 MONTELUKAST SODIUM 49860592906 No Longer Active Carlton Hu MD Acti ve LEVAQUIN 500 MG TAB 1 tablet by mouth daily LEV OFLOXACIN 52466988199 No Longer Active Carlton Hu MD Active FLUTICASONE PROPIONATE 50 MCG/ACT SUSP 2 sprays each n ostril daily for 2 weeks, then 1 spray each nostril daily. FLUTICASONE PRO PIONATE 59416191038 Active Elise Whitmore APRN Active ZITHROMAX 250 MG TAB 2 po today, then 1 po q days 2-5 AZITHROMYCIN 30699366589 No Longer Active Elise Whitmore APRN Acti ve XANAX 0.5 MG TABS one tablet by mouth daily prn anxiety ALPRAZOLAM 26984938871 Active Elise Whitmore APRN Active CYMBALTA 30 MG CPEP 1 cap by mouth daily for depression DULOXETINE HCL 07306913962 Active Carlton Hu MD Active CEFDINIR 300 MG CAPS 1 po BID x 10 days CEFDINI R 25338603759 No Longer Active Carlton Hu MD Active ZOCOR 40 MG TAB 1 tab by mouth daily SIMVASTATI N 94520028310 No Longer Active Carlton Hu MD Active CYCLOBENZAPRINE HCL 10 MG TABS 1 tablet by mouth BID prn had cherelle n CYCLOBENZAPRINE HCL 07545712446 No Longer Active Carlton Hu MD Active LEVOFLOXACIN 500 MG ORAL TABS 1 tab PO daily x 10 days LEVOFLOXACIN 83041628364 No Longer Active Carlton Hu MD Acti ve PREDNISONE 20 MG ORAL TABS 3 tab PO qd x 2d, 2 tab PO qd x 2d, 1 tab PO qd x 2d, 1/2 tab PO qd x 2d PREDNISONE 85012870128 No Longer Active Carlton Hu MD Active FLUTICASONE PROPIONATE 50 MCG/ACT SUSP 1 to 2 sprays each no stril daily FLUTICASONE PROPIONATE 58409934828 No Longer Active T jaz HERNANDEZ Active CHERATUSSIN AC 100-10 MG/5ML SYRP 1 tsp by mouth every 4 hours as needed for cough GUAIFENESIN-CODEINE 96425303918 No Longer Activ e Blaine HERNANDEZ Active PROMETHAZINE-CODEINE 6.25-10 MG/5ML SYRP 1 tsp by mout h every 6 hours if needed for cough PROMETHAZINE-CODEINE 54664885870 No Long er Active Blaine HERNANDEZ Active CHERATUSSIN AC 100-10 MG/5ML SYRP 1 tsp by mouth every 4 hours as needed for cough GUAIFENESIN-CODEINE 18031367396 No Longer Activ Jorge Luis HERNANDEZ Active ZITHROMAX Z-REYNA 250 MG TABS 2 today, then 1 daily for 4 days 201 08/30/03 AZITHROMYCIN 74413556940 No Longer Active Columba Raida Act nael ZITHROMAX 250 MG TAB 2 po today, then 1 po q days 2-5 AZITHROMYCIN 30578129093 No Longer Active Carlton Hu MD Acti ve ZITHROMAX Z-REYNA 250 MG TABS 2 today, then 1 daily for 4 days 201 08/07/20 AZITHROMYCIN 06704006143 No Longer Active Columba Raida Act nael AUGMENTIN 875-125 MG TAB 1 po BID x 10 days AMOXICILLIN- POT CLAVULANATE 90782669897 No Longer Active Diya De Guzman APRN Active ZITHROMAX 250 MG TAB 2 po today, then 1 po q days 2-5 AZITHROMYCIN 89226705707 No Longer Active Carlton Hu MD Acti ve TRAMADOL HCL 50 MG TABS 1 po tid with ES Tylenol TRAMADOL HCL 05992408313 Active Carlton Hu MD Active PREMARIN 0.625 MG TABS TAKE 1 TAB BY MOUTH DAILY 07/25 ESTROGENS CONJUGATED 93198126363 No Longer Active Ridge Bess DO Active CYMBALTA 30 MG CPEP 1 cap by mouth daily DULOXE SNEHA HCL 55027678849 No Longer Active Ridge Bess DO Active AMOXICILLIN 500 MG CAP 1 tab by mouth 3 times daily x 10 days 20 14/04/28 AMOXICILLIN 52650820529 No Longer Active Carlton Hu MD Active AMOXICILLIN 500 MG CAP 1 tab by mouth 3 times daily x 10 days 20 13/03/08 AMOXICILLIN 64579552900 No Longer Active Carlton Hu MD Active PROMETHAZINE-CODEINE 6.25-10 MG/5ML SYRP 1 tsp by mouth ever y 8 hours prn cough PROMETHAZINE-CODEINE 00540040248 No Longer Active Robert Hu MD Active MEDROL (REYNA) 4 MG TABS 6 pills x 1 day, then 5 pill s x 1 day then 4 pills x 1 day, then 3 pills x 1 day, then 2 pills x 1 day, then 1 pill x 1 day, then stop METHYLPREDNISOLONE 07608802921 No Longer Active Parris Mora MD Active AZITHROMYCIN 250 MG TABS 2 po qd x 1 day, then 1 po qd x 4 days AZITHROMYCIN 36819311054 No Longer Active Perez Mora MD Active SYMBICORT 160-4.5 MCG/ACT AERO 2 puffs bid with rinse after 2011 BUDESONIDE-FORMOTEROL FUMARATE 33590925242 No Longer Active Perez Mora MD Active LYRICA 75 MG CAPS TAKE 1 CAPSULE BY MOUTH TWICE DAILY 2013 PREGABALIN 46391198518 No Longer Active Carlton Hu MD Active TOPAMAX 25 MG TABS 1 qHS x 1 week, then 1 BID x 1 week, then 1 qAM and 2 qHS x 1 week, then 2 BID (migraine prevention) TOPIRAMAT E 66142948949 No Longer Active Jerica FUENTES Active TOPAMAX 50 MG TABS take 1 tab po BID for migraines. 12/07/10 TOPIRAMATE 77840915520 No Longer Active Jerica FUENTES Ac tive TOPAMAX 100 MG TABS Take 1 tablet po bid TOPIRAMATE 4999 0818987 Active Elise Whitmore APRN Active TRIAMCINOLONE ACETONIDE 0.1 % CREA apply three times daily prn r beatrice TRIAMCINOLONE ACETONIDE 06869490570 No Longer Active Carlton Hu MD Active PAXIL 40 MG TAB take 1 tab po qday for depression PAROXETINE HCL 63616848025 Active Elise Whitmore APRN Active CHERATUSSIN AC 100-10 MG/5ML SYRP 5ml po q6hr PRN Cough GUAIFENESIN-CODEINE 30512263875 No Longer Active Carlton Hu MD Active MEDROL (REYNA) 4 MG TABS 6 tabs on day 1, 5 tabs on d ay 2, 4 tabs on day 3, 3 tabs on day 4, 2 tabs on day 5, 1 tab on day 6 METHYLPREDNISOLONE 44512262768 No Longer Active Perez Mora MD Active AZITHROMYCIN 250 MG TABS 2 po qd x 1 day, then 1 po qd x 4 days AZITHROMYCIN 26690767168 No Longer Active Perez Mora MD Active PROPRANOLOL HCL 60 MG TABS 1 PO Q D PROPRANOL OL HCL 07084084803 No Longer Active Perez Mora MD Active CHERATUSSIN AC 100-10 MG/5ML SYRP take one tsp po Q 6hours prn c ough GUAIFENESIN-CODEINE 45672632710 No Longer Active Perez Means Active AUGMENTIN 875-125 MG TAB 1 tab by mouth twice daily with food 20 12/03/31 AMOXICILLIN-POT CLAVULANATE 92838429423 No Longer Active Chanel Mora MD Active CHERATUSSIN AC 100-10 MG/5ML SYRP 1 tsp by mouth every 4 hours as needed for cough GUAIFENESIN-CODEINE 04498623036 No Longer Activ e Hugo Restrepo MD Active ACETAMINOPHEN-CODEINE #3 300-30 MG TABS 1 PO Q 4-6 HRS PRN PAIN ACETAMINOPHEN-CODEINE 35357337924 No Longer Active Hugo Restrepo MD Active LEVAQUIN 500 MG TABS take one po QD LEVOFLOXACI N 77005883347 No Longer Active Griffin HERNANDEZ Active PREDNISONE 20 MG TAB Take 3 tabs daily for 3 days , 2 tabs daily for 3 days, 1 tab daily for 3 days, 1/2 tab daily for 3 days P REDNISONE 98048681286 No Longer Active Carlton Hu MD Active AVELOX 400 MG TABS 1 tab by mouth daily MOXIFLO XACIN HCL 84624075855 No Longer Active Carlton Hu MD Active CHERATUSSIN AC 100-10 MG/5ML SYRP 1 tsp by mouth every 4 hours as needed for cough GUAIFENESIN-CODEINE 42755012537 No Longer Activ e Hugo Restrepo MD Active AVELOX 400 MG TABS 1 tab by mouth daily MOXIFLO XACIN HCL 64377469590 No Longer Active Marcy De La Rosa MD PhD Active TERBINAFINE HCL 250 MG TABS 1 qDay TERBINAF INE HCL 67667630839 No Longer Active Marcy De La Rosa MD PhD Active CHERATUSSIN AC 100-10 MG/5ML SYRP 1 tsp by mouth every 4 hours as needed for cough GUAIFENESIN-CODEINE 20571813422 No Longer Activ e Marcy De La Rosa MD PhD Active AVELOX 400 MG TABS 1 tab by mouth daily MOXIFLO XACIN HCL 18447511813 No Longer Active Marcy De La Rosa MD PhD Active HYDROCODONE-ACETAMINOPHEN 5-325 MG TABS 1 po q 6hr PRN cough 201 05/09/16 HYDROCODONE-ACETAMINOPHEN 93120987832 No Longer Active Marcy De La Rosa MD PhD Active PREDNISONE 20 MG TAB 2 tabs daily for 3 days, 1 t ab daily for 3 days, 1/2 tab daily for 2 days PREDNISONE 91619233789 No Longer Active Carlton Hu MD Active CEFDINIR 300 MG CAPS by mouth twice a day CEFDI ODILIA 78205655255 No Longer Active Carlton Hu MD Active HYDROCHLOROTHIAZIDE 25 MG TABS 1 TAB PO DAILY H YDROCHLOROTHIAZIDE 19667046424 Active Carlton Hu MD Active ACETAMINOPHEN-CODEINE #3 300-30 MG TABS 1 tablet po q 4-6hrs prn pain ACETAMINOPHEN-CODEINE 00834893001 No Longer Active Ridge Bess DO Active ZITHROMAX 250 MG TAB 2 po today, then 1 po q days 2-5 AZITHROMYCIN 90232382388 No Longer Active Carlton Hu MD Acti ve CHERATUSSIN AC 100-10 MG/5ML SYRP take 1 tsp po q4-6 hours prn c ough GUAIFENESIN-CODEINE 22231221920 No Longer Active Carlton Hu MD Active ACETAMINOPHEN-CODEINE #3 300-30 MG TABS 1 PO Q 4-6 HR PRN PAIN 2 ACETAMINOPHEN-CODEINE 78486142046 No Longer Active Carlton rich MD Active LORTAB 7.5-500 MG/15ML ELIX 7.5 ml po q 4 hour prn cough HYDROCODONE-ACETAMINOPHEN 64771988980 No Longer Active Carlton Hu MD Active PREDNISONE 20 MG TAB 1 po bid 3 days, then 1 po q day 3 days 201 05/03/07 PREDNISONE 18164914645 No Longer Active Carlton Hu MD Active ELMIRON 100 MG CAPS 2 tablets in the am and 1 tablet at hs PENTOSAN POLYSULFATE SODIUM 52328069146 Active Carlton Hu MD Ac tive CEFDINIR 300 MG CAPS by mouth twice a day CEFDI ODILIA 57232104523 No Longer Active Carlton Hu MD Active CEFDINIR 300 MG CAPS by mouth twice a day CEFDI ODILIA 18263893373 No Longer Active Carlton Hu MD Active CEFDINIR 300 MG CAPS by mouth twice a day CEFDI ODILIA 07859718935 No Longer Active Carlton Hu MD Active TESSALON PERLES 100 MG CAP 1 tablet by mouth 3 times daily a s needed for cough BENZONATATE 18179934529 No Longer Active Carlton bustamante MD Active CEFDINIR 300 MG CAPS by mouth twice a day CEFDI ODILIA 95321984500 No Longer Active Carlton Hu MD Active ZITHROMAX Z-REYNA 250 MG TABS 2 today, then 1 daily for 4 days 201 04/09/17 AZITHROMYCIN 74374344798 No Longer Active Hugo Restrepo MD Active TESSALON PERLES 100 MG CAP 1 tablet by mouth 3 times daily a s needed for cough TESSALON PERLES 100 MG CAP 301395 BENZONATATE I nactive PREDNISONE 20 MG TAB 1 po bid 3 days, then 1 po q day 3 days 201 05/03/07 PREDNISONE 20 MG TAB 656592 PREDNISONE Inactive LORTAB 7.5-500 MG/15ML ELIX 7.5 ml po q 4 hour prn cough LORTAB 7.5-500 MG/15ML ELIX HYDROCODONE-ACETAMINOPHEN Inacti ve ACETAMINOPHEN-CODEINE #3 300-30 MG TABS 1 PO Q 4-6 HR PRN PAIN 2 ACETAMINOPHEN-CODEINE #3 300-30 MG TABS ACETAMIN OPHEN-CODEINE Inactive CHERATUSSIN AC 100-10 MG/5ML SYRP take 1 tsp po q4-6 hours prn c ough CHERATUSSIN AC 100-10 MG/5ML SYRP 911414 GUAIFENESIN-CO DEINE Inactive ACETAMINOPHEN-CODEINE #3 300-30 MG TABS 1 tablet po q 4-6hrs prn pain ACETAMINOPHEN-CODEINE #3 300-30 MG TABS ACETAMIN OPHEN-CODEINE Inactive HYDROCODONE-ACETAMINOPHEN 5-325 MG TABS 1 po q 6hr PRN cough 201 05/09/16 HYDROCODONE-ACETAMINOPHEN 5-325 MG TABS 758192 HYDROCODONE-ACETAMINOPHEN Inactive AVELOX 400 MG TABS 1 tab by mouth daily A VELOX 400 MG TABS 500729 MOXIFLOXACIN HCL Inactive CHERATUSSIN AC 100-10 MG/5ML SYRP 1 tsp by mouth every 4 hours as needed for cough CHERATUSSIN AC 100-10 MG/5ML SYRP 408532 GUAIFENESIN-CODEINE Inactive TERBINAFINE HCL 250 MG TABS 1 qDay TERBINAFINE HCL 250 MG TABS 518978 TERBINAFINE HCL Inactive CHERATUSSIN AC 100-10 MG/5ML SYRP 1 tsp by mouth every 4 hours as needed for cough CHERATUSSIN AC 100-10 MG/5ML SYRP 322237 GUAIFENESIN-CODEINE Inactive ACETAMINOPHEN-CODEINE #3 300-30 MG TABS 1 PO Q 4-6 HRS PRN PAIN ACETAMINOPHEN-CODEINE #3 300-30 MG TABS ACETAMINOPHEN-CODEIN E Inactive CHERATUSSIN AC 100-10 MG/5ML SYRP 1 tsp by mouth every 4 hours as needed for cough CHERATUSSIN AC 100-10 MG/5ML SYRP 533899 GUAIFENESIN-CODEINE Inactive AUGMENTIN 875-125 MG TAB 1 tab by mouth twice daily with food 20 12/03/31 AUGMENTIN 875-125 MG TAB 648077 AMOXICILLIN-POT CLAVULA EFE Inactive CHERATUSSIN AC 100-10 MG/5ML SYRP take one tsp po Q 6hours prn c ough CHERATUSSIN AC 100-10 MG/5ML SYRP 367716 GUAIFENESIN-CO DEINE Inactive PROPRANOLOL HCL 60 MG TABS 1 PO Q D P ROPRANOLOL HCL 60 MG TABS 681911 PROPRANOLOL HCL Inactive TOPAMAX 50 MG TABS take 1 tab po BID for migraines. 12/07/10 TOPAMAX 50 MG TABS 804440 TOPIRAMATE Inactive TOPAMAX 25 MG TABS 1 qHS x 1 week, then 1 BID x 1 week, then 1 qAM and 2 qHS x 1 week, then 2 BID (migraine prevention) TOPAMAX 2 5 MG TABS 678205 TOPIRAMATE Inactive LYRICA 75 MG CAPS TAKE 1 CAPSULE BY MOUTH TWICE DAILY LYRICA 75 MG CAPS PREGABALIN Inactive SYMBICORT 160-4.5 MCG/ACT AERO 2 puffs bid with rinse after 2011 SYMBICORT 160-4.5 MCG/ACT AERO BUDESONIDE-FORMOT SÁNCHEZ FUMARATE Inactive PROMETHAZINE-CODEINE 6.25-10 MG/5ML SYRP 1 tsp by mouth ever y 8 hours prn cough PROMETHAZINE-CODEINE 6.25-10 MG/5ML SYRP 659430 PROMETHAZINE-CODEINE Inactive CYMBALTA 30 MG CPEP 1 cap by mouth daily CYMBALTA 30 MG CPEP 956008 DULOXETINE HCL Inactive PREMARIN 0.625 MG TABS TAKE 1 TAB BY MOUTH DAILY 07/25 PREMARIN 0.625 MG TABS ESTROGENS CONJUGATED Inactive CHERATUSSIN AC 100-10 MG/5ML SYRP 1 tsp by mouth every 4 hours as needed for cough CHERATUSSIN AC 100-10 MG/5ML SYRP 708458 GUAIFENESIN-CODEINE Inactive PROMETHAZINE-CODEINE 6.25-10 MG/5ML SYRP 1 tsp by mout h every 6 hours if needed for cough PROMETHAZINE-CODEINE 6.25-10 MG/5ML SYRP 177287 PROMETHAZINE-CODEINE Inactive CHERATUSSIN AC 100-10 MG/5ML SYRP 1 tsp by mouth every 4 hours as needed for cough CHERATUSSIN AC 100-10 MG/5ML SYRP 718847 GUAIFENESIN-CODEINE Inactive FLUTICASONE PROPIONATE 50 MCG/ACT SUSP 1 to 2 sprays each no stril daily FLUTICASONE PROPIONATE 50 MCG/ACT SUSP 3499291 FLUTICASONE PROPIONATE Inactive PREDNISONE 20 MG ORAL TABS 3 tab PO qd x 2d, 2 tab PO qd x 2d, 1 tab PO qd x 2d, 1/2 tab PO qd x 2d PREDNISONE 20 MG ORAL TABS 637930 PREDNISONE Inactive LEVOFLOXACIN 500 MG ORAL TABS 1 tab PO daily x 10 days LEVOFLOXACIN 500 MG ORAL TABS 998890 LEVOFLOXACIN Inactive CYCLOBENZAPRINE HCL 10 MG TABS 1 tablet by mouth BID prn had cherelle n CYCLOBENZAPRINE HCL 10 MG TABS 437575 CYCLOBENZAPRINE H CL Inactive ZOCOR 40 MG TAB 1 tab by mouth daily ZOCOR 40 M G TAB 065666 SIMVASTATIN Inactive TUSSIONEX PENNKINETIC ER 10-8 MG/5ML [...] empty FLUTICASONE PROPIONATE 50 MCG/ACT SUSP 17 64733 FLUTICASONE PROPIONATE Inactive TUSSIONEX PENNKINETIC ER 10-8 [...] 201 04/09/17 ZITHROMAX Z-REYNA 250 MG TABS 6036136 AZITHROMYCIN Inac tive CEFDINIR 300 MG CAPS [...] q days 2-5 ZITHROMAX 250 MG TAB 9014031 AZITHROMYCIN Inactive CEFDINIR 300 MG CAPS by mouth twice a day CEFDINIR 300 MG CAPS 20020704 CEFDINIR Inactive PREDNISONE 20 MG TAB 2 tabs daily for 3 days, 1 t ab daily for 3 days, 1/2 tab daily for 2 days PREDNISONE 20 MG TAB 383360 PREDNISON E Inactive AVELOX 400 MG TABS 1 tab by mouth daily A VELOX 400 MG TABS 245596 MOXIFLOXACIN HCL Inactive AVELOX 400 MG TABS 1 tab by mouth daily A VELOX 400 MG TABS 151353 MOXIFLOXACIN HCL Inactive PREDNISONE 20 MG TAB Take 3 tabs daily for 3 days , 2 tabs daily for 3 days, 1 tab daily for 3 days, 1/2 tab daily for 3 days PREDNISONE 20 MG TAB 209029 PREDNISONE Inactive LEVAQUIN 500 MG TABS take one po QD LEVAQUIN 50 0 MG TABS 753818 LEVOFLOXACIN Inactive AZITHROMYCIN 250 MG TABS 2 po qd x 1 day, then 1 po qd x 4 days AZITHROMYCIN 250 MG TABS 9440109 AZITHROMYCIN Inactiv e MEDROL (REYNA) 4 MG TABS 6 tabs on day 1, 5 tabs on d ay 2, 4 tabs on day 3, 3 tabs on day 4, 2 tabs on day 5, 1 tab on day 6 MEDROL (REYNA) 4 MG TABS 353381 METHYLPREDNISOLONE Inactive CHERATUSSIN AC 100-10 MG/5ML SYRP 5ml po q6hr PRN Cough CHERATUSSIN AC 100-10 MG/5ML SYRP 970118 GUAIFENESIN-CODEINE Inacti ve TRIAMCINOLONE ACETONIDE 0.1 % CREA apply three times daily prn r beatrice TRIAMCINOLONE ACETONIDE 0.1 % CREA 0447369 TRIAMCINOLONE ACETONIDE Inactive AZITHROMYCIN 250 MG TABS 2 po qd x 1 day, then 1 po qd x 4 days AZITHROMYCIN 250 MG TABS 2517771 AZITHROMYCIN Inactiv e MEDROL (REYNA) 4 MG TABS 6 pills x 1 day, then 5 pill s x 1 day then 4 pills x 1 day, then 3 pills x 1 day, then 2 pills x 1 day, then 1 pill x 1 day, then stop MEDROL (REYNA) 4 MG TABS 082436 METHYLPREDNISOLONE Inactive AMOXICILLIN 500 MG CAP 1 tab by mouth 3 times daily x 10 days 20 13/03/08 AMOXICILLIN 500 MG CAP 617697 AMOXICILLIN Inactive AMOXICILLIN 500 MG CAP 1 tab by mouth 3 times daily x 10 days 20 14/04/28 AMOXICILLIN 500 MG CAP 842987 AMOXICILLIN Inactive ZITHROMAX 250 MG TAB 2 po today, then 1 po q days 2-5 ZITHROMAX 250 MG TAB 1045201 AZITHROMYCIN Inactive AUGMENTIN 875-125 MG TAB 1 po BID x 10 days AUGMENTIN 875- 125 MG TAB 794111 AMOXICILLIN-POT CLAVULANATE Inactive ZITHROMAX Z-REYNA 250 MG TABS 2 today, then 1 daily for 4 days 201 08/07/20 ZITHROMAX Z-REYAN 250 MG TABS 2053990 AZITHROMYCIN Inac tive ZITHROMAX 250 MG TAB 2 po today, then 1 po q days 2-5 ZITHROMAX 250 MG TAB 9337522 AZITHROMYCIN Inactive ZITHROMAX Z-REYNA 250 MG TABS 2 today, then 1 daily for 4 days 201 08/30/03 ZITHROMAX Z-REYNA 250 MG TABS 2427481 AZITHROMYCIN Inac tive CEFDINIR 300 MG CAPS 1 po BID x 10 days C EFDINIR 300 MG CAPS 20020704 CEFDINIR Inactive ZITHROMAX 250 MG TAB 2 po today, then 1 po q days 2-5 ZITHROMAX 250 MG TAB 2980551 AZITHROMYCIN Inactive LEVAQUIN 500 MG TAB 1 tablet by mouth daily LEVAQUIN 500 MG TAB 783176 LEVOFLOXACIN Inactive SINGULAIR 10 MG TABS 1 po qday for allergies 2 SINGULAIR 10 MG TABS 906358 MONTELUKAST SODIUM Inactive AMOXICILLIN 500 MG CAPS 2 po BID x 10 days AMOXICILLIN 500 MG CAPS 379710 AMOXICILLIN Inactive PREDNISONE 20 MG TAB 2 tabs daily for 3 days, 1 t ab daily for 3 days, 1/2 tab daily for 2 days PREDNISONE 20 MG TAB 237150 PREDNISON E Inactive ZITHROMAX Z-REYNA 250 MG TABS 2 today, then 1 daily for 4 days 201 09/29/14 ZITHROMAX Z-REYNA 250 MG TABS 2541177 AZITHROMYCIN Inac tive PREDNISONE 20 MG TAB 2 tabs daily for 3 days, 1 t ab daily for 3 days, 1/2 tab daily for 2 days PREDNISONE 20 MG TAB 121635 PREDNISON E Inactive ZITHROMAX 250 MG TAB 2 po today, then 1 po q days 2-5 ZITHROMAX 250 MG TAB 5566495 AZITHROMYCIN Inactive Vital Signs Date Name Value [...] - Chem istry sodium, serum 132 mmol/L 148-790 7983/07/12 potassium, serum 2.7 mmol/L 3.5-5.2 chloride, serum 93 mmol/L 98-107 carbon dioxide, venous blood 30.8 mmol/L 21.0-32 .0 blood glucose 107 mg/dL 65-110 calcium, serum 9.3 mg/dL 8.5-10.1 urea nitrogen, blood 12 mg/dL 7-18 creatinine, serum 1.00 mg/dL 0.60-1.30 Lab Report: Rapid Strep - Lab Microbial identification kit, rapid strep method Negative Negative Encounters Code Encounter Date Provider Facility CPT-35626 Level 3 Est. Patient 12:17:50 CDT Hugo Restrepo MD [facility] CPT-04460 Level 3 Est. Patient 13:42:38 CDT Elise Guerrero [facility] CPT-62457 Level 3 Est. Patient 13:23:51 CDT Diya cobian [facility] CPT-05565 Level 3 Est. Patient 14:22:19 PAPER ROLLER Diya cobian [facility] CPT-58200 Level 3 Est. Patient 10:11:46 CDT Carlton rich MD [facility] CPT-71694 Level 3 Est. Patient 17:29:43 CDT Italo [facility] CPT-69403 Level 3 Est. Patient 11:58:06 CDT Italo [facility] CPT-14720 Level 4 Est. Patient 14:36:51 CDT Carlton rich MD [facility]-11036 Level 3 Est. Patient 18:16:00 PAPER ROLLER Blaine Freeman [facility] CPT-29423 Level 3 Est. Patient 09:45:49 PAPER ROLLER Carlton rich MD [facility]-41376 Level 3 Est. Patient 13:19:20 CDT Carlton rich MD [facility]-04902 Level 3 Est. Patient 13:06:43 CDT Ridge tam DO [facility] CPT-08692 Level 3 Est. Patient 10:03:07 CDT Perez Mora MD [facility]-26607 Level 3 Est. Patient 19:50:35 PAPER ROLLER Carlton rich MD [facility]-16315 Level 4 Est. Patient 18:05:01 PAPER ROLLER Carlton rich MD [facility] CPT-98910 Level 3 Est. Patient 10:45:55 PAPER ROLLER Hugo Restrepo MD [facility] CPT-93298 Level 3 Est. Patient 14:12:49 CDT Griffin lincoln [facility] CPT-52702 Level 3 Est. Patient 17:37:24 CDT Carlton rich MD [facility] CPT-73789 Level 3 Est. Patient 16:51:54 CDT Carlton rich MD [facility] CPT-23740 Level 3 Est. Patient 12:18:11 CDT Hugo Restrepo MD [facility]-04634 Level 3 Est. Patient 11:30:25 CDT Marcy crisostomo MD PhD [facility]-43583 Level 3 Est. Patient 12:00:47 PAPER ROLLER Carlton rich MD [facility]-39558 Level 3 Est. Patient 16:31:06 PAPER ROLLER Carlton rich MD [facility] CPT-13863 Level 3 Est. Patient 16:23:24 PAPER ROLLER Ridge tam [facility] CPT-10329 Level 3 Est. Patient 12:34:12 CDT Carlton rich MD [facility] CPT-50386 Level 2 Est. Patient 15:43:33 CDT Robi armstrong MD [facility] CPT-39282 Level 4 Est. Patient 14:04:44 CDT Carlton rich MD [facility] CPT-60891 Level 3 Est. Patient 05:47:59 CDT Ridge tam [facility] CPT-05351 Level 3 Est. Patient 13:12:53 PAPER ROLLER Carlton rich MD [facility] CPT-48503 Level 3 Est. Patient 14:26:53 CDT Hugo Restrepo MD [facility] Procedures Code Procedure Name Date Entry Date Standard Desc ription CPT-J1040 Depo Medrol 80 mg (Methyl Prednisolone A cetate) 10:42:44 CDT CPT-J1100 Decadron 8mg (Dexamethasone) 10:42:44 CDT 2 CPT-J0696 Rocephin 1gm Inj Solr 14:32:13 CDT CPT-J1020 Depo Medrol 60 mg (Methyl Prednisolone A cetate) 14:32:13 CDT CPT-J1100 Decadron 6mg (Dexamethasone) 14:32:13 CDT 2 CPT-76552 Hip bilat min 2V w AP pelvis 13:16:20 CDT 2 CPT-78061 Pelvis only 13:07:33 CDT CPT-14950 Spec Collection and Handling Fee 11:25:12 C DT CPT-10500 Fluzone Quadrivalent Intramuscular Suspe nsion 0.5 ML 14:31:55 CDT CPT-87196 Abx/Therapy Injection 13:28:47 PAPER ROLLER CPT-J2930 Solu Medrol 125 mg (Methyl Prednisolone Sodium Succinate) 12:00:47 PAPER ROLLER CPT-81781 Venipuncture Draw Fee 11:33:31 CDT CPT-16691 EKG Trac and Interp 11:21:09 CDT CPT-14687 Chest 2V Frontal and Lat 11:21:09 CDT 12/15 CPT-37977 Venipuncture Draw Fee 08:02:34 CDT CPT-44229 Chest 2V Frontal and Lat 05:47:59 CDT 06/05
--- OUTSIDE RECORDS SUMMARY | 2019-10-08 08:19 | XMS REPORT | Clinical Summary ---
Author Author Caitlin, Juliana Martinez Organization [facility] Address Unknown Phone Unavailable Allergies, Adverse Reactions, Alerts Allergy Name Reaction Description Start Date Severity Status Pr ovider No Known Allergies Ilya Vaughan MA Conditions or Problems Problem Name Problem [...] Unspecified sinusitis (chronic) HEALTH SCREENING V70.0 Active Calrton Hu MD Routine general medical examination at [...] Generic Name ND Status Provider Patient Instruction TRAMADOL HCL 50 MG TABS 1 po tid with ES Tylenol TRAMADOL HCL 14706605243 Active Ridge Bess DO Active PREMARIN 0.625 MG TABS TAKE 1 TAB BY MOUTH DAILY 07/25 ESTROGENS CONJUGATED 98846198441 No Longer Active Ridge Bess DO Active CYMBALTA 30 MG CPEP 1 cap by mouth daily DULOXE SNEHA HCL 12362076656 No Longer Active Ridge Bess DO Active AMOXICILLIN 500 MG CAP 1 tab by mouth 3 times daily x 10 days 20 14/04/28 AMOXICILLIN 59908921603 No Longer Active Carlton Hu MD Active AMOXICILLIN 500 MG CAP 1 tab by mouth 3 times daily x 10 days 20 13/03/08 AMOXICILLIN 07277918491 No Longer Active Carlton Hu MD Active CHERATUSSIN AC 100-10 MG/5ML SYRP 1 tsp by mouth every 4 hours as needed for cough GUAIFENESIN-CODEINE 93147283968 Active Carlton banks MD Active CYCLOBENZAPRINE HCL 10 MG TABS 1 tablet by mouth BID prn had pain 2 CYCLOBENZAPRINE HCL 95333053627 Active Carlton Hu MD A ctive PROMETHAZINE-CODEINE 6.25-10 MG/5ML SYRP 1 tsp by mouth ever y 8 hours prn cough PROMETHAZINE-CODEINE 31211747729 No Longer Active Robert jade Hu MD Active MEDROL (REYNA) 4 MG TABS 6 pills x 1 day, then 5 pill s x 1 day then 4 pills x 1 day, then 3 pills x 1 day, then 2 pills x 1 day, then 1 pill x 1 day, then stop METHYLPREDNISOLONE 95942962637 No Longer Active Parris Mora MD Active AZITHROMYCIN 250 MG TABS 2 po qd x 1 day, then 1 po qd x 4 days AZITHROMYCIN 15538193599 No Longer Active Perez Mora MD Active SYMBICORT 160-4.5 MCG/ACT AERO 2 puffs bid with rinse after 2011 BUDESONIDE-FORMOTEROL FUMARATE 08679092700 No Longer Active Perez Mora MD Active LYRICA 75 MG CAPS TAKE 1 CAPSULE BY MOUTH TWICE DAILY 2013 PREGABALIN 52915136883 No Longer Active Carlton Hu MD Active LYRICA 100 MG CAPS Take 1 tab po BID for fibromyalgia PREGABALIN 85042084609 Active Carlton Hu MD Active TOPAMAX 25 MG TABS 1 qHS x 1 week, then 1 BID x 1 week, then 1 qAM and 2 qHS x 1 week, then 2 BID (migraine prevention) TOPIRAMAT E 50372566243 No Longer Active Jerica FUENTES Active TOPAMAX 50 MG TABS take 1 tab po BID for migraines. 12/07/10 TOPIRAMATE 80904189264 No Longer Active Jerica AGUILARA Ac tive TOPAMAX 100 MG TABS Take 1 tablet po bid TOPIRAMATE 4999 5290564 Active Carlton Hu MD Active TRIAMCINOLONE ACETONIDE 0.1 % CREA apply three times daily prn r beatrice TRIAMCINOLONE ACETONIDE 00627486954 No Longer Active Carlton Hu MD Active PAXIL 40 MG TAB take 1 tab po qday for depression PAROXETINE HCL 40261796142 Active Carlton Hu MD Active CHERATUSSIN AC 100-10 MG/5ML SYRP 5ml po q6hr PRN Cough GUAIFENESIN-CODEINE 29270741835 No Longer Active Carlton uH MD Active MEDROL (REYNA) 4 MG TABS 6 tabs on day 1, 5 tabs on d ay 2, 4 tabs on day 3, 3 tabs on day 4, 2 tabs on day 5, 1 tab on day 6 METHYLPREDNISOLONE 93589578346 No Longer Active Perez Mora MD Active AZITHROMYCIN 250 MG TABS 2 po qd x 1 day, then 1 po qd x 4 days AZITHROMYCIN 10916419687 No Longer Active Perez Mora MD Active PROPRANOLOL HCL 60 MG TABS 1 PO Q D PROPRANOL OL HCL 66761490768 No Longer Active Perez Mora MD Active CHERATUSSIN AC 100-10 MG/5ML SYRP take one tsp po Q 6hours prn c ough GUAIFENESIN-CODEINE 78461492531 No Longer Active Perez Means Active AUGMENTIN 875-125 MG TAB 1 tab by mouth twice daily with food 20 12/03/31 AMOXICILLIN-POT CLAVULANATE 10184926545 No Longer Active Chanel Mora MD Active CHERATUSSIN AC 100-10 MG/5ML SYRP 1 tsp by mouth every 4 hours as needed for cough GUAIFENESIN-CODEINE 79312500377 No Longer Activ e Hugo Restrepo MD Active ACETAMINOPHEN-CODEINE #3 300-30 MG TABS 1 PO Q 4-6 HRS PRN PAIN ACETAMINOPHEN-CODEINE 01479496932 No Longer Active Hugo Restrepo MD Active LEVAQUIN 500 MG TABS take one po QD LEVOFLOXACI N 44422291544 No Longer Active Griffin HERNANDEZ Active PREDNISONE 20 MG TAB Take 3 tabs daily for 3 days , 2 tabs daily for 3 days, 1 tab daily for 3 days, 1/2 tab daily for 3 days P REDNISONE 84886740441 No Longer Active Carlton Hu MD Active AVELOX 400 MG TABS 1 tab by mouth daily MOXIFLO XACIN HCL 96745375865 No Longer Active Carlton Hu MD Active CHERATUSSIN AC 100-10 MG/5ML SYRP 1 tsp by mouth every 4 hours as needed for cough GUAIFENESIN-CODEINE 81858329213 No Longer Activ e Hugo Restrepo MD Active AVELOX 400 MG TABS 1 tab by mouth daily MOXIFLO XACIN HCL 58259946374 No Longer Active Marcy De La Rosa MD PhD Active TERBINAFINE HCL 250 MG TABS 1 qDay TERBINAF INE HCL 56838970019 No Longer Active Marcy De La Rosa MD PhD Active CHERATUSSIN AC 100-10 MG/5ML SYRP 1 tsp by mouth every 4 hours as needed for cough GUAIFENESIN-CODEINE 26465773430 No Longer Activ e Marcy De La Rosa MD PhD Active AVELOX 400 MG TABS 1 tab by mouth daily MOXIFLO XACIN HCL 06609361345 No Longer Active Marcy De La Rosa MD PhD Active HYDROCODONE-ACETAMINOPHEN 5-325 MG TABS 1 po q 6hr PRN cough 201 05/09/16 HYDROCODONE-ACETAMINOPHEN 63449697613 No Longer Active Marcy De La Rosa MD PhD Active PREDNISONE 20 MG TAB 2 tabs daily for 3 days, 1 t ab daily for 3 days, 1/2 tab daily for 2 days PREDNISONE 74161954937 No Longer Active Carlton Hu MD Active CEFDINIR 300 MG CAPS by mouth twice a day CEFDI ODILIA 92821923968 No Longer Active Carlton Hu MD Active ZOCOR 40 MG TAB 1 tab by mouth daily SIMVASTATIN 90061175049 Active Carlton Hu MD Active HYDROCHLOROTHIAZIDE 25 MG TABS 1 TAB PO DAILY H YDROCHLOROTHIAZIDE 42130235741 Active Carlton Hu MD Active ACETAMINOPHEN-CODEINE #3 300-30 MG TABS 1 tablet po q 4-6hrs prn pain ACETAMINOPHEN-CODEINE 41407045759 No Longer Active Ridge Bess DO Active ZITHROMAX 250 MG TAB 2 po today, then 1 po q days 2-5 AZITHROMYCIN 83461957751 No Longer Active Carlton Hu MD Acti ve CHERATUSSIN AC 100-10 MG/5ML SYRP take 1 tsp po q4-6 hours prn c ough GUAIFENESIN-CODEINE 92784238393 No Longer Active Carlton Hu MD Active ACETAMINOPHEN-CODEINE #3 300-30 MG TABS 1 PO Q 4-6 HR PRN PAIN 2 ACETAMINOPHEN-CODEINE 01598386277 No Longer Active Carlton rich MD Active LORTAB 7.5-500 MG/15ML ELIX 7.5 ml po q 4 hour prn cough HYDROCODONE-ACETAMINOPHEN 49197087993 No Longer Active Carlton Hu MD Active PREDNISONE 20 MG TAB 1 po bid 3 days, then 1 po q day 3 days 201 05/03/07 PREDNISONE 82449827725 No Longer Active Carlton Hu MD Active ELMIRON 100 MG CAPS 2 tablets in the am and 1 tablet at hs PENTOSAN POLYSULFATE SODIUM 18667145879 Active Gracie Moreno Active CEFDINIR 300 MG CAPS by mouth twice a day CEFDI ODILIA 65903324329 No Longer Active Carlton Hu MD Active CEFDINIR 300 MG CAPS by mouth twice a day CEFDI ODILIA 80176060953 No Longer Active Carlton Hu MD Active CEFDINIR 300 MG CAPS by mouth twice a day CEFDI ODILIA 25708523278 No Longer Active Carlton Hu MD Active TESSALON PERLES 100 MG CAP 1 tablet by mouth 3 times daily a s needed for cough BENZONATATE 10748091359 No Longer Active Carlton bustamante MD Active CEFDINIR 300 MG CAPS by mouth twice a day CEFDI ODILIA 49790178519 No Longer Active Carlton Hu MD Active ZITHROMAX Z-REYNA 250 MG TABS 2 today, then 1 daily for 4 days 201 04/09/17 AZITHROMYCIN 69719513796 No Longer Active Hugo Restrepo MD Active TESSALON PERLES 100 MG CAP 1 tablet by mouth 3 times daily a s needed for cough TESSALON PERLES 100 MG CAP 243229 BENZONATATE I nactive PREDNISONE 20 MG TAB 1 po bid 3 days, then 1 po q day 3 days 201 05/03/07 PREDNISONE 20 MG TAB 480058 PREDNISONE Inactive LORTAB 7.5-500 MG/15ML ELIX 7.5 ml po q 4 hour prn cough LORTAB 7.5-500 MG/15ML ELIX HYDROCODONE-ACETAMINOPHEN Inacti ve ACETAMINOPHEN-CODEINE #3 300-30 MG TABS 1 PO Q 4-6 HR PRN PAIN 2 ACETAMINOPHEN-CODEINE #3 300-30 MG TABS 380362 ACETAMIN OPHEN-CODEINE Inactive CHERATUSSIN AC 100-10 MG/5ML SYRP take 1 tsp po q4-6 hours prn c ough CHERATUSSIN AC 100-10 MG/5ML SYRP 233619 GUAIFENESIN-CO DEINE Inactive ACETAMINOPHEN-CODEINE #3 300-30 MG TABS 1 tablet po q 4-6hrs prn pain ACETAMINOPHEN-CODEINE #3 300-30 MG TABS 359589 ACETAMIN OPHEN-CODEINE Inactive HYDROCODONE-ACETAMINOPHEN 5-325 MG TABS 1 po q 6hr PRN cough 201 05/09/16 HYDROCODONE-ACETAMINOPHEN 5-325 MG TABS 914581 HYDROCODONE-ACETAMINOPHEN Inactive AVELOX 400 MG TABS 1 tab by mouth daily A VELOX 400 MG TABS 157234 MOXIFLOXACIN HCL Inactive CHERATUSSIN AC 100-10 MG/5ML SYRP 1 tsp by mouth every 4 hours as needed for cough CHERATUSSIN AC 100-10 MG/5ML SYRP 132852 GUAIFENESIN-CODEINE Inactive TERBINAFINE HCL 250 MG TABS 1 qDay TERBINAFINE HCL 250 MG TABS 994140 TERBINAFINE HCL Inactive CHERATUSSIN AC 100-10 MG/5ML SYRP 1 tsp by mouth every 4 hours as needed for cough CHERATUSSIN AC 100-10 MG/5ML SYRP 857954 GUAIFENESIN-CODEINE Inactive ACETAMINOPHEN-CODEINE #3 300-30 MG TABS 1 PO Q 4-6 HRS PRN PAIN ACETAMINOPHEN-CODEINE #3 300-30 MG TABS 656470 ACETAMINOPHEN-CODEIN E Inactive CHERATUSSIN AC 100-10 MG/5ML SYRP 1 tsp by mouth every 4 hours as needed for cough CHERATUSSIN AC 100-10 MG/5ML SYRP 537355 GUAIFENESIN-CODEINE Inactive AUGMENTIN 875-125 MG TAB 1 tab by mouth twice daily with food 20 12/03/31 AUGMENTIN 875-125 MG TAB 853280 AMOXICILLIN-POT CLAVULA EFE Inactive CHERATUSSIN AC 100-10 MG/5ML SYRP take one tsp po Q 6hours prn c ough CHERATUSSIN AC 100-10 MG/5ML SYRP 467421 GUAIFENESIN-CO DEINE Inactive PROPRANOLOL HCL 60 MG TABS 1 PO Q D P ROPRANOLOL HCL 60 MG TABS 208253 PROPRANOLOL HCL Inactive TOPAMAX 50 MG TABS take 1 tab po BID for migraines. 12/07/10 TOPAMAX 50 MG TABS 235369 TOPIRAMATE Inactive TOPAMAX 25 MG TABS 1 qHS x 1 week, then 1 BID x 1 week, then 1 qAM and 2 qHS x 1 week, then 2 BID (migraine prevention) TOPAMAX 2 5 MG TABS 895071 TOPIRAMATE Inactive LYRICA 75 MG CAPS TAKE 1 CAPSULE BY MOUTH TWICE DAILY LYRICA 75 MG CAPS PREGABALIN Inactive SYMBICORT 160-4.5 MCG/ACT AERO 2 puffs bid with rinse after 2011 SYMBICORT 160-4.5 MCG/ACT AERO BUDESONIDE-FORMOT SÁNCHEZ FUMARATE Inactive PROMETHAZINE-CODEINE 6.25-10 MG/5ML SYRP 1 tsp by mouth ever y 8 hours prn cough PROMETHAZINE-CODEINE 6.25-10 MG/5ML SYRP 620296 PROMETHAZINE-CODEINE Inactive CYMBALTA 30 MG CPEP 1 cap by mouth daily CYMBALTA 30 MG CPEP 074887 DULOXETINE HCL Inactive PREMARIN 0.625 MG TABS TAKE 1 TAB BY MOUTH DAILY 07/25 PREMARIN 0.625 MG TABS ESTROGENS CONJUGATED Inactive ZITHROMAX Z-REYNA 250 MG TABS 2 today, then 1 daily for 4 days 201 04/09/17 ZITHROMAX Z-REYNA 250 MG TABS 7519802 AZITHROMYCIN Inac tive CEFDINIR 300 MG CAPS [...] q days 2-5 ZITHROMAX 250 MG TAB 8355498 AZITHROMYCIN Inactive CEFDINIR 300 MG CAPS by mouth twice a day CEFDINIR 300 MG CAPS 20020704 CEFDINIR Inactive PREDNISONE 20 MG TAB 2 tabs daily for 3 days, 1 t ab daily for 3 days, 1/2 tab daily for 2 days PREDNISONE 20 MG TAB 748334 PREDNISON E Inactive AVELOX 400 MG TABS 1 tab by mouth daily A VELOX 400 MG TABS 644567 MOXIFLOXACIN HCL Inactive AVELOX 400 MG TABS 1 tab by mouth daily A VELOX 400 MG TABS 493505 MOXIFLOXACIN HCL Inactive PREDNISONE 20 MG TAB Take 3 tabs daily for 3 days , 2 tabs daily for 3 days, 1 tab daily for 3 days, 1/2 tab daily for 3 days PREDNISONE 20 MG TAB 555549 PREDNISONE Inactive LEVAQUIN 500 MG TABS take one po QD LEVAQUIN 50 0 MG TABS 648505 LEVOFLOXACIN Inactive AZITHROMYCIN 250 MG TABS 2 po qd x 1 day, then 1 po qd x 4 days AZITHROMYCIN 250 MG TABS 6072045 AZITHROMYCIN Inactiv e MEDROL (REYNA) 4 MG TABS 6 tabs on day 1, 5 tabs on d ay 2, 4 tabs on day 3, 3 tabs on day 4, 2 tabs on day 5, 1 tab on day 6 MEDROL (REYNA) 4 MG TABS METHYLPREDNISOLONE Inactive CHERATUSSIN AC 100-10 MG/5ML SYRP 5ml po q6hr PRN Cough CHERATUSSIN AC 100-10 MG/5ML SYRP 024876 GUAIFENESIN-CODEINE Inacti ve TRIAMCINOLONE ACETONIDE 0.1 % CREA apply three times daily prn r beatrice TRIAMCINOLONE ACETONIDE 0.1 % CREA 7269884 TRIAMCINOLONE ACETONIDE Inactive AZITHROMYCIN 250 MG TABS 2 po qd x 1 day, then 1 po qd x 4 days AZITHROMYCIN 250 MG TABS 3571832 AZITHROMYCIN Inactiv e MEDROL (REYNA) 4 MG [...] days 20 13/03/08 AMOXICILLIN 500 MG CAP 033251 AMOXICILLIN Inactive AMOXICILLIN 500 MG CAP 1 tab by mouth 3 times daily x 10 days 20 14/04/28 AMOXICILLIN 500 MG CAP 587852 AMOXICILLIN Inactive Vital Signs Date Name Value Unit Range Description blood pressure, diastolic - 8462-4 72 mm[Hg] [...] Report: Erythrocyte Sed Rate, CBC - Hematology leukocyte count, blood 4.1 10^3/MM^3 10*3/mm3 4.6-10.2 erythrocyte (RBC) count 4.89 10^6/MM^3 10*6/mm3 4.04-5.4 8 hemoglobin, blood 15.0 g/dL 12.0-16.0 hematocrit, blood 43.9 % 36.0-46.0 mean corpuscular volume, RBC 90 fL 80-97 mean corpuscular hemoglobin, RBC 30.6 pg 27. 0-31.2 mean corpuscular hemoglobin concentration, RBC 34.1 G/DL % 31.8-35.4 red blood cell distribution width 12.8 % 11 .6-14.8 platelet count 371 10^3/MM^3 10*3/mm3 142-424 Encounters Code Encounter Date Provider Facility CPT-96361 Level 3 Est. Patient 13:06:43 CDT Ridge tam DO [facility] CPT-03773 Level 3 Est. Patient 10:03:07 CDT Perez Mora MD [facility] CPT-44671 Level 3 Est. Patient 19:50:35 [employer] Carlton rich MD [facility]-92303 Level 4 Est. Patient 18:05:01 [employer]URN[employer]URE [employer]SEM[employer] SUPERVISOR Carlton rich MD [facility]-93362 Level 3 Est. Patient 10:45:55 [employer] Hugo Restrepo MD [facility]-52291 Level 3 Est. Patient 14:12:49 CDT Griffin HERNANDEZ [facility]-19963 Level 3 Est. Patient 17:37:24 CDT Carlton rich MD [facility]-09813 Level 3 Est. Patient 16:51:54 CDT Carlton rich MD [facility]-86804 Level 3 Est. Patient 12:18:11 CDT Hugo Restrepo MD [facility]-10102 Level 3 Est. Patient 11:30:25 CDT Marcy crisostomo MD PhD [facility]-05137 Level 3 Est. Patient 12:00:47 [employer] SUPERVISOR Carlton rich MD [facility]-78953 Level 3 Est. Patient 16:31:06 [employer]URN[employer]BL[employer] SUPERVISOR Carlton rich MD [facility]-43404 Level 3 Est. Patient 16:23:24 [employer] SUPERVISOR Ridge tam DO [facility]-71082 Level 3 Est. Patient 12:34:12 CDT Carlton rich MD [facility] CPT-80470 Level 2 Est. Patient 15:43:33 CDT Robi armstrong MD [facility]-18532 Level 4 Est. Patient 14:04:44 CDT Carlton rich MD [facility]-27657 Level 3 Est. Patient 05:47:59 CDT Ridge tam [facility]-15007 Level 3 Est. Patient 13:12:53 [employer] SUPERVISOR Carlton rich MD [facility] CPT-15276 Level 3 Est. Patient 14:26:53 CDT Hugo Restrepo MD [facility] Procedures Code Procedure Name Date Entry Date Standard Desc ription CPT-03952 Hip bilat min 2V w AP pelvis 13:16:20 CDT 2 CPT-14369 Pelvis only 13:07:33 CDT CPT-50131 Spec Collection and Handling Fee 11:25:12 C DT CPT-21641 Fluzone Quadrivalent Intramuscular Suspe nsion 0.5 ML 14:31:55 CDT CPT-98551 Abx/Therapy Injection 13:28:47 [employer] CPT-J2930 Solu Medrol 125 mg (Methyl Prednisolone Sodium Succinate) 12:00:47 [employer] CPT-72774 Venipuncture Draw Fee 11:33:31 CDT CPT-96850 EKG Trac and Interp 11:21:09 CDT CPT-96476 Chest 2V Frontal and Lat 11:21:09 CDT 12/15 CPT-51296 Venipuncture Draw Fee 08:02:34 CDT CPT-11127 Chest 2V Frontal and Lat 05:47:59 CDT 06/05
--- OUTSIDE RECORDS SUMMARY | 2019-10-08 08:20 | XMS REPORT | Clinical Summary ---
Author Author Caitlin, Juliana Martinez Organization [employer] [facility] Address Unknown Phone Unavailable [...] Headache Preventive health care V70.0 Active Carlton bustamatne MD Routine general medical examination at a [...] po qd x 5 days P REDNISONE [id number] No Longer Active Perez Mora MD Active PROAIR HFA 108 (90 BASE) MCG/ACT INHALATION AEROSOL SO LUTION 2 puffs four times a day as needed ALBUTEROL SULFATE 75850123021 No Long er Active Becky FUENTES Active ASPIRIN 81 MG ORAL TABLET 1 po qd ASPIRIN 68917247767 Active Carlton Hu MD Active PREDNISONE 20 MG ORAL TABLET 1 tab twice daily for 3 d ay, then one daily for three days PREDNISONE 37637199111 No Longer Active Carlton Hu MD Active AUGMENTIN 875-125 MG ORAL TABLET 1 po BID x 10 days 20 16/03/22 AMOXICILLIN-POT CLAVULANATE 60141972589 No Longer Active Elise Garcia APRN Active TERBINAFINE HCL 250 MG ORAL TABLET 1 qDay for nail fungus 7 TERBINAFINE HCL 35101734026 No Longer Active Carlton Hu MD A ctive TUSSIONEX PENNKINETIC ER 10-8 MG/5ML ORAL SUSPENSION E XTENDED RELEASE 5ml po q12hr PRN Cough HYDROCOD POLST-CHLORPHEN POLST 31803025283 Active Perez Mora MD Active AMOXICILLIN 500 MG ORAL CAPSULE 1 cap by mouth three times a day AMOXICILLIN 58747464237 No Longer Active Carlton Hu MD Active ELMIRON 100 MG ORAL CAPSULE 2 tablets in the am and 1 tablet at hs PENTOSAN POLYSULFATE SODIUM 05502371712 No Longer Active Robert Hu MD Active MUCINEX D 60-600 MG ORAL TABLET EXTENDED RELEASE 12 HOUR 1 t ab po q am PSEUDOEPHEDRINE-GUAIFENESIN 13648422498 No Longer Act nael Carlton Hu MD Active MUCINEX DM MAXIMUM STRENGTH 60-1200 MG ORAL TABLET EXT ENDED RELEASE 12 HOUR 1 tab po q am DEXTROMETHORPHAN-GUAIFENESIN 07459371614 No Longer Active Carlton Hu MD Active TUSSIONEX PENNKINETIC ER 10-8 MG/5ML ORAL SUSPENSION E XTENDED RELEASE 5ml po q12hr PRN Cough HYDROCOD POLST-CHLORPHEN POLST 5 7599906442 No Longer Active Carlton Hu MD Active POTASSIUM CHLORIDE ER 20 MEQ ORAL TABLET EXTENDED RELE ASE Take 1 by mouth 4 times daily for 7 days POTASSIUM CHLORIDE 04184142742 No Longer Active Carlton Hu MD Active ZITHROMAX 250 MG ORAL TABLET 2 po today, then 1 po q days 2-5 20 14/09/04 AZITHROMYCIN 70350059434 No Longer Active Elise Garcia APRN Active TUSSIONEX PENNKINETIC ER 10-8 MG/5ML ORAL SUSPENSION E XTENDED RELEASE 5 ml twice a day as needed for cough HYDROCOD POLST-CHLORPH EN POLST 06260198441 No Longer Active Elise Garcia APRN Active MONTELUKAST SODIUM 10 MG ORAL TABLET 1 po daily for Allergy MONTELUKAST SODIUM 71220846521 Active Carlton Hu MD Ac tive TUSSIONEX PENNKINETIC ER 10-8 MG/5ML ORAL SUSPENSION E XTENDED RELEASE 5ml po q12hr PRN Cough HYDROCOD POLST-CHLORPHEN POLST 5 7243881717 No Longer Active Hugo Restrepo MD Active GABAPENTIN 100 MG ORAL CAPSULE 1 po BID for fibromyalgia GABAPENTIN 13427757445 Active Carlton Hu MD Active LYRICA 100 MG ORAL CAPSULE Take 1 tab po BID for fibromyalgia 20 11/08/21 PREGABALIN 34118361072 No Longer Active Elise Garcia APRN A ctive PREDNISONE 20 MG ORAL TABLET 2 tabs daily for 3 days, 1 tab daily for 3 days, 1/2 tab daily for 2 days PREDNISONE 93289880597 No Longer Active Diya De Guzman APRN Active TUSSIONEX PENNKINETIC ER 10-8 MG/5ML ORAL SUSPENSION E XTENDED RELEASE 5 mL PO q 12 hrs PRN cough HYDROCOD POLST-CHLORPHEN POLST 122802 87566 No Longer Active Jillina Gege RICEN Active FLUTICASONE PROPIONATE 50 MCG/ACT NASAL SUSPENSION 2 s prays each nostril daily until bottle is empty FLUTICASONE PROPIONATE 031523762 99 No Longer Active Diya De Guzman APRN Active ASMANEX 60 METERED DOSES 220 MCG/INH INHALATION AEROSO L POWDER BREATH ACTIVATED 1 puff bid with rinse after MOMETASONE FUROATE 7335185 4102 No Longer Active Diya De Guzman APRN Active ZITHROMAX Z-REYNA 250 MG ORAL TABLET 2 today, then 1 daily for 4 d ays AZITHROMYCIN 02659570670 No Longer Active Elise Garcia APRN Active TUSSIONEX PENNKINETIC ER 10-8 MG/5ML ORAL SUSPENSION E XTENDED RELEASE 5ml po q12hr PRN Cough HYDROCOD POLST-CHLORPHEN POLST 5 7625787160 No Longer Active Elise Garcia APRN Active PREDNISONE 20 MG ORAL TABLET 2 tabs daily for 3 days, 1 tab daily for 3 days, 1/2 tab daily for 2 days PREDNISONE 58800979872 No Longer Active Diya De Guzman APRN Active AMOXICILLIN 500 MG ORAL CAPSULE 2 po BID x 10 days 201 09/29/08 AMOXICILLIN 49714089298 No Longer Active Diya De Guzman APRN Act nael SINGULAIR 10 MG ORAL TABLET 1 po qday for allergies 20 14/01/12 MONTELUKAST SODIUM 29387899939 No Longer Active Carlton Hu MD Active LEVAQUIN 500 MG ORAL TABLET 1 tablet by mouth daily 20 13/09/24 LEVOFLOXACIN 50709840338 No Longer Active Carlton Hu MD Acti ve FLUTICASONE PROPIONATE 50 MCG/ACT NASAL SUSPENSION 2 s prays each nostril daily for 2 weeks, then 1 spray each nostril daily. FLUTICASONE PROPIONATE 06819509839 Active Elise Garcia APRN Active ZITHROMAX 250 MG ORAL TABLET 2 po today, then 1 po q days 2-5 20 13/08/10 AZITHROMYCIN 78889717169 No Longer Active Elise Garcia APRN Active XANAX 0.5 MG ORAL TABLET one tablet by mouth daily prn anxiety 2015 ALPRAZOLAM 99814570451 Active Carlton uH MD Active CYMBALTA 30 MG ORAL CAPSULE DELAYED RELEASE PARTICLES 1 cap by mouth daily for depression DULOXETINE HCL 76177920057 Active Carlton beltrán MD Active CEFDINIR 300 MG ORAL CAPSULE 1 po BID x 10 days CEFDINIR 94398225951 No Longer Active Carlton Hu MD Active ZOCOR 40 MG ORAL TABLET 1 tab by mouth daily SI MVASTATIN 42244524795 No Longer Active Carlton Hu MD Active CYCLOBENZAPRINE HCL 10 MG ORAL TABLET 1 tablet by mouth BID prn had pain CYCLOBENZAPRINE HCL 51470508169 No Longer Active Jayden Hu MD Active LEVOFLOXACIN 500 MG ORAL TABLET 1 tab PO daily x 10 days LEVOFLOXACIN 61776537958 No Longer Active Carlton Hu MD Acti ve PREDNISONE 20 MG ORAL TABLET 3 tab PO qd x 2d, 2 tab P O qd x 2d, 1 tab PO qd x 2d, 1/2 tab PO qd x 2d PREDNISONE 36742442079 No Lo nger Active Carlton Hu MD Active FLUTICASONE PROPIONATE 50 MCG/ACT NASAL SUSPENSION 1 t o 2 sprays each nostril daily FLUTICASONE PROPIONATE 82522424046 No Longer Ac tive Blaine HERNANDEZ Active CHERATUSSIN AC 100-10 MG/5ML ORAL SYRUP 1 tsp by mouth every 4 hours as needed for cough GUAIFENESIN-CODEINE 51615010644 No Longe r Active Blaine HERNANDEZ Active PROMETHAZINE-CODEINE 6.25-10 MG/5ML ORAL SYRUP 1 tsp b y mouth every 6 hours if needed for cough PROMETHAZINE-CODEINE 38595712295 No Longer Active Blaine HERNANDEZ Active CHERATUSSIN AC 100-10 MG/5ML ORAL SYRUP 1 tsp by mouth every 4 hours as needed for cough GUAIFENESIN-CODEINE 48637387308 No Longe r Active Blaine HERNANDEZ Active ZITHROMAX Z-REYNA 250 MG ORAL TABLET 2 today, then 1 daily for 4 d ays AZITHROMYCIN 52154582950 No Longer Active Columba Raida Act nael ZITHROMAX 250 MG ORAL TABLET 2 po today, then 1 po q days 2-5 20 14/03/21 AZITHROMYCIN 91982082768 No Longer Active Carlton Hu MD Active ZITHROMAX Z-REYNA 250 MG ORAL TABLET 2 today, then 1 daily for 4 d ays AZITHROMYCIN 89917392157 No Longer Active Columba Raida Act nael AUGMENTIN 875-125 MG ORAL TABLET 1 po BID x 10 days 13/01/20 AMOXICILLIN-POT CLAVULANATE 58895891987 No Longer Active Diya De Guzman APRN Active ZITHROMAX 250 MG ORAL TABLET 2 po today, then 1 po q days 2-5 20 12/08/14 AZITHROMYCIN 74966063006 No Longer Active Carlton Hu MD Active TRAMADOL HCL 50 MG ORAL TABLET 1 po tid with ES Tylenol TRAMADOL HCL 15661318299 Active Carlton Hu MD Active PREMARIN 0.625 MG ORAL TABLET TAKE 1 TAB BY MOUTH DAILY ESTROGENS CONJUGATED 88532883602 No Longer Active Ridge Bess DO A ctive CYMBALTA 30 MG ORAL CAPSULE DELAYED RELEASE PARTICLES 1 cap by mouth daily DULOXETINE HCL 03171690934 No Longer Active Ridge tam DO Active AMOXICILLIN 500 MG ORAL CAPSULE 1 tab by mouth 3 times daily x 10 days AMOXICILLIN 60798607161 No Longer Active Carlton bustamante MD Active AMOXICILLIN 500 MG ORAL CAPSULE 1 tab by mouth 3 times daily x 10 days AMOXICILLIN 76209538390 No Longer Active Carlton bustamante MD Active PROMETHAZINE-CODEINE 6.25-10 MG/5ML ORAL SYRUP 1 tsp b y mouth every 8 hours prn cough PROMETHAZINE-CODEINE 89867364660 No Longer Acti ve Carlton Hu MD Active MEDROL 4 MG ORAL TABLET THERAPY PACK 6 pills x 1 day, then 5 pills x 1 day then 4 pills x 1 day, then 3 pills x 1 day, then 2 pills x 1 day, then 1 pill x 1 day, then stop METHYLPREDNISOLONE 05739171448 No Long er Active Perez Mora MD Active AZITHROMYCIN 250 MG ORAL TABLET 2 po qd x 1 day, then 1 po q d x 4 days AZITHROMYCIN 65261541106 No Longer Active Perez Ambriz MD Active SYMBICORT 160-4.5 MCG/ACT INHALATION AEROSOL 2 puffs bid wit h rinse after BUDESONIDE-FORMOTEROL FUMARATE 88673030249 N o Longer Active Perez Mora MD Active LYRICA 75 MG ORAL CAPSULE TAKE 1 CAPSULE BY MOUTH TWICE DAILY PREGABALIN 43525675085 No Longer Active Carlton Hu MD Acti ve TOPAMAX 25 MG ORAL TABLET 1 qHS x 1 week, then 1 BID x 1 week, then 1 qAM and 2 qHS x 1 week, then 2 BID (migraine prevention) T OPIRAMATE 29906703824 No Longer Active Jerica FUENTES Active TOPAMAX 50 MG ORAL TABLET take 1 tab po BID for migraines. 07/02 TOPIRAMATE 22993190149 No Longer Active Jerica FUENTES Active TOPAMAX 100 MG ORAL TABLET Take 1 tablet po bid TO PIRAMATE 48588173924 Active Carlton Hu MD Active TRIAMCINOLONE ACETONIDE 0.1 % EXTERNAL CREAM apply three roger es daily prn rash TRIAMCINOLONE ACETONIDE 23699001060 No Longer Active Carlton Hu MD Active PAXIL 40 MG ORAL TABLET take 1 tab po qday for depression 0 PAROXETINE HCL 57470184988 Active Carlton Hu MD Active CHERATUSSIN AC 100-10 MG/5ML ORAL SYRUP 5ml po q6hr PRN Cough 20 13/04/14 GUAIFENESIN-CODEINE 90737669861 No Longer Active Carlton Hu MD Active MEDROL 4 MG ORAL TABLET THERAPY PACK 6 tabs on day 1, 5 tabs on day 2, 4 tabs on day 3, 3 tabs on day 4, 2 tabs on day 5, 1 tab on day 6 2013 METHYLPREDNISOLONE 73464969816 No Longer Active Perez Mora MD Active AZITHROMYCIN 250 MG ORAL TABLET 2 po qd x 1 day, then 1 po q d x 4 days AZITHROMYCIN 31041025770 No Longer Active Perez Ambriz MD Active PROPRANOLOL HCL 60 MG ORAL TABLET 1 PO Q D PROPRANOLOL HCL 31486578954 No Longer Active Perez Mora MD Activ e CHERATUSSIN AC 100-10 MG/5ML ORAL SYRUP take one tsp po Q 6h ours prn cough GUAIFENESIN-CODEINE 19792659647 No Longer Active Zia Mora MD Active AUGMENTIN 875-125 MG ORAL TABLET 1 tab by mouth twice daily with food AMOXICILLIN-POT CLAVULANATE 16668526446 No Longer Act nael Perez Mora MD Active CHERATUSSIN AC 100-10 MG/5ML ORAL SYRUP 1 tsp by mouth every 4 hours as needed for cough GUAIFENESIN-CODEINE 45881363182 No Longe r Active Hugo Restrepo MD Active ACETAMINOPHEN-CODEINE #3 300-30 MG ORAL TABLET 1 PO Q 4-6 HRS AL N PAIN ACETAMINOPHEN-CODEINE 37827012596 No Longer Active Hugo Restrepo MD Active LEVAQUIN 500 MG ORAL TABLET take one po QD LEVO FLOXACIN 22922033781 No Longer Active Griffin HERNANDEZ Active PREDNISONE 20 MG ORAL TABLET Take 3 tabs daily for 3 d ays, 2 tabs daily for 3 days, 1 tab daily for 3 days, 1/2 tab daily for 3 days 11/07 PREDNISONE 91426664932 No Longer Active Carlton Hu MD Acti ve AVELOX 400 MG ORAL TABLET 1 tab by mouth daily MOXIFLOXACIN HCL 19705104605 No Longer Active Carlton Hu MD Active CHERATUSSIN AC 100-10 MG/5ML ORAL SYRUP 1 tsp by mouth every 4 hours as needed for cough GUAIFENESIN-CODEINE 22461426073 No Longe r Active Hugo Restrepo MD Active AVELOX 400 MG ORAL TABLET 1 tab by mouth daily MOXIFLOXACIN HCL 11776246088 No Longer Active Marcy De La Rosa MD PhD Active TERBINAFINE HCL 250 MG ORAL TABLET 1 qDay T ERBINAFINE HCL 18993264062 No Longer Active Marcy De La Rosa MD PhD Active CHERATUSSIN AC 100-10 MG/5ML ORAL SYRUP 1 tsp by mouth every 4 hours as needed for cough GUAIFENESIN-CODEINE 27370685029 No Longe r Active Marcy De La Rosa MD PhD Active AVELOX 400 MG ORAL TABLET 1 tab by mouth daily MOXIFLOXACIN HCL 65128171910 No Longer Active Marcy De La Rosa MD PhD Active HYDROCODONE-ACETAMINOPHEN 5-325 MG ORAL TABLET 1 po q 6hr PRN co ugh HYDROCODONE-ACETAMINOPHEN 32382950293 No Longer Active Marcy De La Rosa MD PhD Active PREDNISONE 20 MG ORAL TABLET 2 tabs daily for 3 days, 1 tab daily for 3 days, 1/2 tab daily for 2 days PREDNISONE 37773689355 No Longer Active Carlton Hu MD Active CEFDINIR 300 MG ORAL CAPSULE by mouth twice a day 2011 CEFDINIR 00781206649 No Longer Active Carlton Hu MD Acti ve HYDROCHLOROTHIAZIDE 25 MG ORAL TABLET 1 TAB PO DAILY HYDROCHLOROTHIAZIDE 63475209892 Active ALFREDO Holly Ac tive ACETAMINOPHEN-CODEINE #3 300-30 MG ORAL TABLET 1 tablet po q 4-6 hrs prn pain ACETAMINOPHEN-CODEINE 17829249907 No Longer Active Ridge Bess DO Active ZITHROMAX 250 MG ORAL TABLET 2 po today, then 1 po q days 2-5 20 03/07/07 AZITHROMYCIN 91680037394 No Longer Active Carlton Hu MD Active CHERATUSSIN AC 100-10 MG/5ML ORAL SYRUP take 1 tsp po q4-6 h ours prn cough GUAIFENESIN-CODEINE 15923450663 No Longer Active Jayden Hu MD Active ACETAMINOPHEN-CODEINE #3 300-30 MG ORAL TABLET 1 PO Q 4-6 HR PRN PAIN ACETAMINOPHEN-CODEINE 67565637740 No Longer Active Arnol Hu MD Active LORTAB 7.5-500 MG/15ML ORAL ELIXIR 7.5 ml po q 4 hour prn cough HYDROCODONE-ACETAMINOPHEN 77998013966 No Longer Active Carlton Hu MD Active PREDNISONE 20 MG ORAL TABLET 1 po bid 3 days, then 1 po q day 3 days PREDNISONE 41577343600 No Longer Active Carlton Hu MD Active CEFDINIR 300 MG ORAL CAPSULE by mouth twice a day 2011 CEFDINIR 83814504244 No Longer Active Carlton Hu MD Acti ve CEFDINIR 300 MG ORAL CAPSULE by mouth twice a day 2010 CEFDINIR 44753082732 No Longer Active Carlton Hu MD Acti ve CEFDINIR 300 MG ORAL CAPSULE by mouth twice a day 2010 CEFDINIR 25617508464 No Longer Active Carlton Hu MD Acti ve TESSALON PERLES 100 MG ORAL CAPSULE 1 tablet by mouth 3 times daily as needed for cough BENZONATATE 86595053105 No Longer Active Carlton Hu MD Active CEFDINIR 300 MG ORAL CAPSULE by mouth twice a day 2010 CEFDINIR 80409665246 No Longer Active Carlton Hu MD Acti ve ZITHROMAX Z-REYNA 250 MG ORAL TABLET 2 today, then 1 daily for 4 d ays AZITHROMYCIN 15218393116 No Longer Active Hugo Restrepo MD Active TESSALON PERLES 100 MG ORAL CAPSULE 1 tablet by mouth 3 times daily as needed for cough TESSALON PERLES 100 MG ORAL CAPSULE 80952 7 BENZONATATE Inactive PREDNISONE 20 MG ORAL TABLET 1 po bid 3 days, then 1 po q day 3 days PREDNISONE 20 MG ORAL TABLET 370028 PREDNISONE Greer ctive LORTAB 7.5-500 MG/15ML ORAL [...] cough CHERATUSSIN AC 100-10 MG/5ML ORAL SYRUP 010274 GUAIFENESIN-CODEINE Inactive ACETAMINOPHEN-CODEINE #3 300-30 MG ORAL TABLET 1 tablet po q 4-6 hrs prn pain ACETAMINOPHEN-CODEINE #3 300-30 MG ORAL TABLET ACETAMINOPHEN-CODEINE Inactive HYDROCODONE-ACETAMINOPHEN 5-325 MG ORAL TABLET 1 po q 6hr PRN co ugh HYDROCODONE-ACETAMINOPHEN 5-325 MG ORAL TABLET 569919 HYDROCODONE-ACETAMINOPHEN Inactive AVELOX 400 MG ORAL TABLET 1 tab by mouth daily AVELOX 400 MG ORAL TABLET 732568 MOXIFLOXACIN HCL Inactive CHERATUSSIN AC 100-10 MG/5ML ORAL SYRUP 1 tsp by mouth every 4 hours as needed for cough CHERATUSSIN AC 100-10 MG/5ML ORAL SYRUP 9 30347 GUAIFENESIN-CODEINE Inactive TERBINAFINE HCL 250 MG ORAL TABLET 1 qDay 07/08 TERBINAFINE HCL 250 MG ORAL TABLET 199998 TERBINAFINE HCL Inactive CHERATUSSIN AC 100-10 MG/5ML ORAL SYRUP 1 tsp by mouth every 4 hours as needed for cough CHERATUSSIN AC 100-10 MG/5ML ORAL SYRUP 9 20371 GUAIFENESIN-CODEINE Inactive ACETAMINOPHEN-CODEINE #3 300-30 MG ORAL TABLET 1 PO Q 4-6 HRS AL N PAIN ACETAMINOPHEN-CODEINE #3 300-30 MG ORAL TABLET ACETAMINOPHEN-CODEINE Inactive CHERATUSSIN AC 100-10 MG/5ML ORAL SYRUP 1 tsp by mouth every 4 hours as needed for cough CHERATUSSIN AC 100-10 MG/5ML ORAL SYRUP 9 12214 GUAIFENESIN-CODEINE Inactive AUGMENTIN 875-125 MG ORAL TABLET 1 tab by mouth twice daily with food AUGMENTIN 875-125 MG ORAL TABLET 136312 AMOXICIL MADELINE-POT CLAVULANATE Inactive CHERATUSSIN AC 100-10 MG/5ML ORAL SYRUP take one tsp po Q 6h ours prn cough CHERATUSSIN AC 100-10 MG/5ML ORAL SYRUP 923432 GUAIFENESIN-CODEINE Inactive PROPRANOLOL HCL 60 MG ORAL TABLET 1 PO Q D PROPRANOLOL HCL 60 MG ORAL TABLET 899686 PROPRANOLOL HCL Inactive TOPAMAX 50 MG ORAL TABLET take 1 tab po BID for migraines. 07/02 TOPAMAX 50 MG ORAL TABLET 072973 TOPIRAMATE Inacti ve TOPAMAX 25 MG ORAL TABLET 1 qHS x 1 week, then 1 BID x 1 week, then 1 qAM and 2 qHS x 1 week, then 2 BID (migraine prevention) TOPAMAX 25 MG ORAL TABLET 322507 TOPIRAMATE Inactive LYRICA 75 MG ORAL CAPSULE TAKE 1 CAPSULE BY MOUTH TWICE DAILY LYRICA 75 MG ORAL CAPSULE PREGABALIN Inactive SYMBICORT 160-4.5 MCG/ACT INHALATION AEROSOL 2 puffs bid wit h rinse after SYMBICORT 160-4.5 MCG/ACT INHALATION AEROSOL BUDESONIDE- FORMOTEROL FUMARATE Inactive PROMETHAZINE-CODEINE 6.25-10 MG/5ML ORAL SYRUP 1 tsp b y mouth every 8 hours prn cough PROMETHAZINE-CODEINE 6.25-10 MG/ 5ML ORAL SYRUP 305693 PROMETHAZINE-CODEINE Inactive CYMBALTA 30 MG ORAL CAPSULE DELAYED RELEASE PARTICLES 1 cap by mouth daily CYMBALTA 30 MG ORAL CAPSULE DELAYED RELE ASE PARTICLES 935585 DULOXETINE HCL Inactive PREMARIN 0.625 MG ORAL TABLET TAKE 1 TAB BY MOUTH DAILY PREMARIN 0.625 MG ORAL TABLET ESTROGENS CONJUGATED Inactive CHERATUSSIN AC 100-10 MG/5ML ORAL SYRUP 1 tsp by mouth every 4 hours as needed for cough CHERATUSSIN AC 100-10 MG/5ML ORAL SYRUP 9 19376 GUAIFENESIN-CODEINE Inactive PROMETHAZINE-CODEINE 6.25-10 MG/5ML ORAL SYRUP 1 tsp b y mouth every 6 hours if needed for cough PROMETHAZINE-CODEINE 6.25-10 MG/5ML ORAL SYRUP 872549 PROMETHAZINE-CODEINE Inactive CHERATUSSIN AC 100-10 MG/5ML ORAL SYRUP 1 tsp by mouth every 4 hours as needed for cough CHERATUSSIN AC 100-10 MG/5ML ORAL SYRUP 9 21525 GUAIFENESIN-CODEINE Inactive FLUTICASONE PROPIONATE 50 MCG/ACT NASAL SUSPENSION 1 t o 2 sprays each nostril daily FLUTICASONE PROPIONATE 50 MCG/AC T NASAL SUSPENSION 5210315 FLUTICASONE PROPIONATE Inactive PREDNISONE 20 MG ORAL TABLET 3 tab PO qd x 2d, 2 tab P O qd x 2d, 1 tab PO qd x 2d, 1/2 tab PO qd x 2d PREDNISONE 20 MG ORAL TAB LET 513890 PREDNISONE Inactive LEVOFLOXACIN 500 MG ORAL TABLET 1 tab PO daily x 10 days LEVOFLOXACIN 500 MG ORAL TABLET 301661 LEVOFLOXACIN Inactive CYCLOBENZAPRINE HCL 10 MG ORAL TABLET 1 tablet by mouth BID prn had pain CYCLOBENZAPRINE HCL 10 MG ORAL TABLET 557189 CYCLOBENZAPRINE HCL Inactive ZOCOR 40 MG ORAL TABLET 1 tab by mouth daily 4 ZOCOR 40 MG ORAL TABLET 751131 SIMVASTATIN Inactive TUSSIONEX PENNKINETIC ER 10-8 MG/5ML [...] FLUTICASONE PROPIO EFE 50 MCG/ACT NASAL SUSPENSION 2075005 FLUTICASONE PROPIONATE Inactive TUSSIONEX PENNKINETIC ER 10-8 [...] three days PREDNISONE 20 MG ORAL TABLET 908359 PREDNIS ONE Inactive PROAIR HFA 108 (90 BASE) MCG/ACT INHALATION AEROSOL SO LUTION 2 puffs four times a day as needed PROAIR HFA 108 (90 B ASE) MCG/ACT INHALATION AEROSOL SOLUTION ALBUTEROL SULFATE Inactive ZITHROMAX Z-REYNA 250 MG ORAL TABLET 2 today, then 1 daily for 4 d ays ZITHROMAX Z-REYNA 250 MG ORAL TABLET 024074 AZITHROMYCIN Inactive CEFDINIR 300 MG ORAL CAPSULE by mouth twice a day 2010 CEFDINIR 300 MG ORAL CAPSULE 886911 CEFDINIR Inactive CEFDINIR 300 MG ORAL CAPSULE [...] 2-5 03/07/07 ZITHROMAX 250 MG ORAL TABLET 220686 AZITHROMYCIN Greer ctive CEFDINIR 300 MG ORAL CAPSULE by mouth twice a day 2011 CEFDINIR 300 MG ORAL CAPSULE 20020704 CEFDINIR Inactive PREDNISONE 20 MG ORAL TABLET 2 tabs daily for 3 days, 1 tab daily for 3 days, 1/2 tab daily for 2 days PREDNISONE 20 MG ORAL T ABLET 259347 PREDNISONE Inactive AVELOX 400 MG ORAL TABLET 1 tab by mouth daily AVELOX 400 MG ORAL TABLET 090696 MOXIFLOXACIN HCL Inactive AVELOX 400 MG ORAL TABLET 1 tab by mouth daily AVELOX 400 MG ORAL TABLET 184585 MOXIFLOXACIN HCL Inactive PREDNISONE 20 MG ORAL TABLET Take 3 tabs daily for 3 d ays, 2 tabs daily for 3 days, 1 tab daily for 3 days, 1/2 tab daily for 3 days 11/07 PREDNISONE 20 MG ORAL TABLET 548066 PREDNISONE Inactive LEVAQUIN 500 MG ORAL TABLET take one po QD LEVAQUIN 500 MG ORAL TABLET 753411 LEVOFLOXACIN Inactive AZITHROMYCIN 250 MG ORAL TABLET 2 po qd x 1 day, then 1 po q d x 4 days AZITHROMYCIN 250 MG ORAL TABLET 418649 AZITHROMY GIOVANNI Inactive MEDROL 4 MG ORAL TABLET THERAPY PACK 6 tabs on day 1, 5 tabs on day 2, 4 tabs on day 3, 3 tabs on day 4, 2 tabs on day 5, 1 tab on day 6 2013 MEDROL 4 MG ORAL TABLET THERAPY PACK 109179 METHYLPREDNISOLONE Greer ctive CHERATUSSIN AC 100-10 MG/5ML ORAL SYRUP 5ml po q6hr PRN Cough 20 13/04/14 CHERATUSSIN AC 100-10 MG/5ML ORAL SYRUP 087449 GUAIFENE SIN-CODEINE Inactive TRIAMCINOLONE ACETONIDE 0.1 % EXTERNAL CREAM apply three roger es daily prn rash TRIAMCINOLONE ACETONIDE 0.1 % EXTERNAL CREAM 101 4314 TRIAMCINOLONE ACETONIDE Inactive AZITHROMYCIN 250 MG ORAL TABLET 2 po qd x 1 day, then 1 po q d x 4 days AZITHROMYCIN 250 MG ORAL TABLET 216519 AZITHROMY GIOVANNI Inactive MEDROL 4 MG ORAL TABLET THERAPY PACK 6 pills x 1 day, then 5 pills x 1 day then 4 pills x 1 day, then 3 pills x 1 day, then 2 pills x 1 day, then 1 pill x 1 day, then stop MEDROL 4 MG ORAL TABLET THERAPY PACK 669638 METHYLPREDNISOLONE Inactive AMOXICILLIN 500 MG ORAL CAPSULE 1 tab by mouth 3 times daily x 10 days AMOXICILLIN 500 MG ORAL CAPSULE 575140 AMOXICILL IN Inactive AMOXICILLIN 500 MG ORAL CAPSULE 1 tab by mouth 3 times daily x 10 days AMOXICILLIN 500 MG ORAL CAPSULE 468044 AMOXICILL IN Inactive ZITHROMAX 250 MG ORAL TABLET 2 po today, then 1 po q days 2-5 20 12/08/14 ZITHROMAX 250 MG ORAL TABLET 792142 AZITHROMYCIN Greer ctive AUGMENTIN 875-125 MG ORAL TABLET 1 po BID x 10 days 20 13/01/20 AUGMENTIN 875-125 MG ORAL TABLET 929095 AMOXICILLIN-POT CLAVULANATE Inactive ZITHROMAX Z-REYNA 250 MG ORAL TABLET 2 today, then 1 daily for 4 d ays ZITHROMAX Z-REYNA 250 MG ORAL TABLET 275042 AZITHROMYCIN Inactive ZITHROMAX 250 MG ORAL TABLET 2 po today, then 1 po q days 2-5 20 14/03/21 ZITHROMAX 250 MG ORAL TABLET 513823 AZITHROMYCIN Teague ctive ZITHROMAX Z-REYNA 250 MG ORAL TABLET 2 today, then 1 daily for 4 d ays ZITHROMAX Z-REYNA 250 MG ORAL TABLET 903734 AZITHROMYCIN Inactive CEFDINIR 300 MG ORAL CAPSULE 1 po BID x 10 days 06/21 CEFDINIR 300 MG ORAL CAPSULE 20020704 CEFDINIR Inactive ZITHROMAX 250 MG ORAL TABLET 2 po today, then 1 po q days 2-5 20 13/08/10 ZITHROMAX 250 MG ORAL TABLET 780783 AZITHROMYCIN Teague ctive LEVAQUIN 500 MG ORAL TABLET 1 tablet by mouth daily 13/09/24 LEVAQUIN 500 MG ORAL TABLET 19971102 LEVOFLOXACIN Inactive SINGULAIR 10 MG ORAL TABLET 1 po qday for allergies 20 14/01/12 SINGULAIR 10 MG ORAL TABLET 20010504 MONTELUKAST SODIUM Inactive AMOXICILLIN 500 MG ORAL CAPSULE 2 po BID x 10 days 201 09/29/08 AMOXICILLIN 500 MG ORAL CAPSULE 105242 AMOXICILLIN Inactive PREDNISONE 20 MG ORAL TABLET 2 tabs daily for 3 days, 1 tab daily for 3 days, 1/2 tab daily for 2 days PREDNISONE 20 MG ORAL T ABLET 071612 PREDNISONE Inactive ZITHROMAX Z-REYNA 250 MG ORAL TABLET 2 today, then 1 daily for 4 d ays ZITHROMAX Z-REYNA 250 MG ORAL TABLET 188130 AZITHROMYCIN Inactive PREDNISONE 20 MG ORAL TABLET 2 tabs daily for 3 days, 1 tab daily for 3 days, 1/2 tab daily for 2 days PREDNISONE 20 MG ORAL T ABLET 889395 PREDNISONE Inactive ZITHROMAX 250 MG ORAL TABLET 2 po today, then 1 po q days 2-5 20 14/09/04 ZITHROMAX 250 MG ORAL TABLET 120394 AZITHROMYCIN Greer ctive AMOXICILLIN 500 MG ORAL CAPSULE 1 cap by mouth three times a day AMOXICILLIN 500 MG ORAL CAPSULE 917544 AMOXICILLIN Inactive TERBINAFINE HCL 250 MG ORAL TABLET 1 qDay for nail fungus 7 TERBINAFINE HCL 250 MG ORAL TABLET 556128 TERBINAFINE HCL Inact nael AUGMENTIN 875-125 MG ORAL TABLET 1 po BID x 10 days 16/03/22 AUGMENTIN 875-125 MG ORAL TABLET 948774 AMOXICILLIN-POT CLAVULANATE Inactive PREDNISONE 20 MG ORAL TABLET 2 po qd x 5 days PREDNISONE 20 MG ORAL TABLET 298070 PREDNISONE Inactive Vital Signs Date Name Value [...] weight E&M 152.5 [lb_av] Weight Measure d Diagnostic Results Date Name Value Unit Range Description Lab Report: Basic Metabolic Panel - Chem istry sodium, serum 132 mmol/L 745-170 3482/07/12 potassium, serum 2.7 mmol/L 3.5-5.2 chloride, serum 93 mmol/L 98-107 carbon dioxide, venous blood 30.8 mmol/L 21.0-32 .0 blood glucose 107 mg/dL 65-110 calcium, serum 9.3 mg/dL 8.5-10.1 urea nitrogen, blood 12 mg/dL 7-18 creatinine, serum 1.00 mg/dL 0.60-1.30 sodium, serum 142 mmol/L 842-673 7773/07/17 potassium, serum 4.2 mmol/L 3.5-5.2 chloride, serum 106 mmol/L 98-107 carbon dioxide, venous blood 29.9 mmol/L 21.0-32 .0 blood glucose 108 mg/dL 65-110 calcium, serum 9.1 mg/dL 8.5-10.1 urea nitrogen, blood 11 mg/dL 7-18 creatinine, serum 0.81 mg/dL 0.60-1.30 Lab Report: Rapid Strep - Lab Microbial identification kit, rapid strep method Negative Negative Encounters Code Encounter Date Provider Facility CPT-72317 Level 3 Est. Patient 11:34:49 SHIFT SUPERVISOR RN Perez Mora MD [facility] CPT-01126 Level 4 Est. Patient 09:51:32 SHIFT SUPERVISOR RN Carlton rich MD [facility] CPT-77405 Level 3 Est. Patient 10:26:00 SHIFT SUPERVISOR RN Elise stephenson [facility]-63261 Level 3 Est. Patient 13:35:41 SHIFT SUPERVISOR RN Carlton rich MD [facility] CPT-73242 Level 3 Est. Patient 10:03:52 SHIFT SUPERVISOR RN Carlton rich MD [facility] CPT-78743 Level 3 Est. Patient 12:17:50 CDT Hugo Restrepo MD [facility] CPT-19173 Level 3 Est. Patient 13:42:38 CDT Elise stephenson [facility] CPT-60047 Level 3 Est. Patient 13:23:51 CDT Diya cobian [facility] CPT-54021 Level 3 Est. Patient 14:22:19 SHIFT SUPERVISOR RN Diya cobian [facility]-20831 Level 3 Est. Patient 10:11:46 CDT Carlton rich MD [facility] CPT-70175 Level 3 Est. Patient 17:29:43 CDT Elise Are ll CIRCUIT BOARD REPAIR TECHNICIAN [facility] CPT-92469 Level 3 Est. Patient 11:58:06 CDT Elise Are ll [facility] CPT-13435 Level 4 Est. Patient 14:36:51 CDT Carlton rich MD [facility] CPT-20565 Level 3 Est. Patient 18:16:00 SHIFT SUPERVISOR RN Blaine Freeman [facility] CPT-11539 Level 3 Est. Patient 09:45:49 SHIFT SUPERVISOR RN Carlton rich MD [facility] CPT-62711 Level 3 Est. Patient 13:19:20 CDT Carlton rich MD [facility] CPT-21941 Level 3 Est. Patient 13:06:43 CDT Ridge tam DO [facility] CPT-60621 Level 3 Est. Patient 10:03:07 CDT Perez Mora MD [facility] CPT-29600 Level 3 Est. Patient 19:50:35 SHIFT SUPERVISOR RN Carlton rich MD [facility] CPT-17988 Level 4 Est. Patient 18:05:01 SHIFT SUPERVISOR RN Carlton rich MD [facility] CPT-95822 Level 3 Est. Patient 10:45:55 SHIFT SUPERVISOR RN Hugo Restrepo MD [facility] CPT-11839 Level 3 Est. Patient 14:12:49 CDT Griffin lincoln [facility] CPT-37740 Level 3 Est. Patient 17:37:24 CDT Carlton rich MD [facility] CPT-62833 Level 3 Est. Patient 16:51:54 CDT Carlton rich MD [facility] CPT-67602 Level 3 Est. Patient 12:18:11 CDT Hugo Restrepo MD [facility] CPT-53259 Level 3 Est. Patient 11:30:25 CDT Marcy crisostomo MD PhD [facility] CPT-91265 Level 3 Est. Patient 12:00:47 SHIFT SUPERVISOR RN Carlton rich MD [facility] CPT-74880 Level 3 Est. Patient 16:31:06 SHIFT SUPERVISOR RN Carlton rich MD [facility] CPT-23567 Level 3 Est. Patient 16:23:24 SHIFT SUPERVISOR RN Ridge tam [facility] CPT-23703 Level 3 Est. Patient 12:34:12 CDT Carlton rich MD [facility] CPT-77692 Level 2 Est. Patient 15:43:33 CDT Robi armstrong MD [facility] CPT-87484 Level 4 Est. Patient 14:04:44 CDT Carlton rich MD [facility] CPT-14087 Level 3 Est. Patient 05:47:59 CDT Ridge tam [facility] CPT-62689 Level 3 Est. Patient 13:12:53 SHIFT SUPERVISOR RN Carlton rich MD [facility] CPT-81140 Level 3 Est. Patient 14:26:53 CDT Hugo Restrepo MD [facility] Procedures Code Procedure Name Date Entry Date Standard Desc ription CPT-J1040 Depo Medrol 80 mg (Methyl Prednisolone A cetate) 10:42:44 CDT CPT-J1100 Decadron 8mg (Dexamethasone) 10:42:44 CDT 2 CPT-J0696 Rocephin 1gm Inj Solr 14:32:13 CDT CPT-J1020 Depo Medrol 60 mg (Methyl Prednisolone A cetate) 14:32:13 CDT CPT-J1100 Decadron 6mg (Dexamethasone) 14:32:13 CDT 2 CPT-56224 Hip bilat min 2V w AP pelvis 13:16:20 CDT 2 CPT-39615 Pelvis only 13:07:33 CDT CPT-19025 Spec Collection and Handling Fee 11:25:12 C DT CPT-79405 Fluzone Quadrivalent Intramuscular Suspe nsion 0.5 ML 14:31:55 CDT CPT-08803 Abx/Therapy Injection 13:28:47 SHIFT SUPERVISOR RN CPT-J2930 Solu Medrol 125 mg (Methyl Prednisolone Sodium Succinate) 12:00:47 SHIFT SUPERVISOR RN CPT-80727 Venipuncture Draw Fee 11:33:31 CDT CPT-33217 EKG Trac and Interp 11:21:09 CDT CPT-87127 Chest 2V Frontal and Lat 11:21:09 CDT 12/15 CPT-62288 Venipuncture Draw Fee 08:02:34 CDT CPT-12470 Chest 2V Frontal and Lat 05:47:59 CDT 06/05
--- OUTSIDE RECORDS SUMMARY | 2019-10-08 08:20 | XMS REPORT | Clinical Summary ---
Author Author Caitlin, Juliana Martinez Organization [facility] Address Unknown Phone Unavailable [...] times daily for 7 days POTASSIUM CHLORIDE [id number] Active Columba Raida Active TUSSIONEX PENNKINETIC ER 10-8 MG/5ML LQCR 5ml po q12hr PRN Cough 20 14/09/04 HYDROCOD POLST-CHLORPHEN POLST 35714455753 Active Elise Whitmore APRN Active ZITHROMAX 250 MG TAB 2 po today, then 1 po q days 2-5 AZITHROMYCIN 24660600652 No Longer Active Elise Whitmore APRN Acti ve TUSSIONEX PENNKINETIC ER 10-8 MG/5ML LQCR 5 ml twice a day a s needed for cough HYDROCOD POLST-CHLORPHEN POLST 09140604139 N o Longer Active Elise Whitmore APRN Active MONTELUKAST SODIUM 10 MG ORAL TABS 1 po daily for Allergy 6 MONTELUKAST SODIUM 84109980772 Active Carlton Hu MD Ac tive TUSSIONEX PENNKINETIC ER 10-8 MG/5ML LQCR 5ml po q12hr PRN Cough HYDROCOD POLST-CHLORPHEN POLST 88016692136 No Longer Active Hugo Restrepo MD Active GABAPENTIN 100 MG CAPS 1 po BID for fibromyalgia GABAPENTIN 83687438720 Active Elise Whitmore APRN Active LYRICA 100 MG CAPS Take 1 tab po BID for fibromyalgia PREGABALIN 40734136567 No Longer Active Elise Whitmore APRN Acti ve PROAIR HFA 108 (90 BASE) MCG/ACT AERS 2 puffs four times a d ay as needed ALBUTEROL SULFATE 08343505284 Active Elise Whitmore APRN Active MUCINEX DM MAXIMUM STRENGTH 60-1200 MG [id number] 1 tab po q am 2016 DEXTROMETHORPHAN-GUAIFENESIN 68387358733 Active Jillina Frazell SALES REPRESENTATIVE ADVERTISING Active PREDNISONE 20 MG TAB 2 tabs daily for 3 days, 1 t ab daily for 3 days, 1/2 tab daily for 2 days PREDNISONE 24200795881 No Longer Active Jillina Frazell SALES REPRESENTATIVE ADVERTISING Active TUSSIONEX PENNKINETIC ER 10-8 MG/5ML ORAL LQCR 5 mL PO q 12 hrs PRN cough HYDROCOD POLST-CHLORPHEN POLST 67600365447 No Longer Active Jillina Frazell SALES REPRESENTATIVE ADVERTISING Active FLUTICASONE PROPIONATE 50 MCG/ACT SUSP 2 sprays each n ostril daily until bottle is empty FLUTICASONE PROPIONATE 52914279616 No Longer Ac tive Jillina Frazell SALES REPRESENTATIVE ADVERTISING Active ASMANEX 60 METERED DOSES 220 MCG/INH AEPB 1 puff bid with ri nse after MOMETASONE FUROATE 42306795989 No Longer Active Diya meneses SALES REPRESENTATIVE ADVERTISING Active ZITHROMAX Z-REYNA 250 MG TABS 2 today, then 1 daily for 4 days 201 09/29/14 AZITHROMYCIN 94680925164 No Longer Active Elise Whitmore SALES REPRESENTATIVE ADVERTISING Active TUSSIONEX PENNKINETIC ER 10-8 MG/5ML LQCR 5ml po q12hr PRN Cough HYDROCOD POLST-CHLORPHEN POLST 36695535419 No Longer Active Elise Whitmore SALES REPRESENTATIVE ADVERTISING Active MUCINEX D 60-600 MG [id number] 1 tab po q am PSEUDOEPHEDRINE-GUAIFENESIN 30623801206 Active Diya De Guzman SALES REPRESENTATIVE ADVERTISING Active PREDNISONE 20 MG TAB 2 tabs daily for 3 days, 1 t ab daily for 3 days, 1/2 tab daily for 2 days PREDNISONE 64345311979 No Longer Active Diya De Guzman SALES REPRESENTATIVE ADVERTISING Active AMOXICILLIN 500 MG CAPS 2 po BID x 10 days AMOX ICILLIN 38356567436 No Longer Active Diya De Guzman SALES REPRESENTATIVE ADVERTISING Active SINGULAIR 10 MG TABS 1 po qday for allergies 2 MONTELUKAST SODIUM 55043123396 No Longer Active Carlton Hu MD Acti ve LEVAQUIN 500 MG TAB 1 tablet by mouth daily LEV OFLOXACIN 01168801160 No Longer Active Carlton Hu MD Active FLUTICASONE PROPIONATE 50 MCG/ACT SUSP 2 sprays each n ostril daily for 2 weeks, then 1 spray each nostril daily. FLUTICASONE PRO PIONATE 65981048644 Active Elise Whitmore APRN Active ZITHROMAX 250 MG TAB 2 po today, then 1 po q days 2-5 AZITHROMYCIN 64662391732 No Longer Active Elise Whitmore APRN Acti ve XANAX 0.5 MG TABS one tablet by mouth daily prn anxiety ALPRAZOLAM 56992600401 Active Carlton Hu MD Active CYMBALTA 30 MG CPEP 1 cap by mouth daily for depression DULOXETINE HCL 39656728309 Active Carlton Hu MD Active CEFDINIR 300 MG CAPS 1 po BID x 10 days CEFDINI R 27186355856 No Longer Active Carlton Hu MD Active ZOCOR 40 MG TAB 1 tab by mouth daily SIMVASTATI N 88098229863 No Longer Active Carlton Hu MD Active CYCLOBENZAPRINE HCL 10 MG TABS 1 tablet by mouth BID prn had cherelle n CYCLOBENZAPRINE HCL 62099849617 No Longer Active Carlton Hu MD Active LEVOFLOXACIN 500 MG ORAL TABS 1 tab PO daily x 10 days LEVOFLOXACIN 13016026545 No Longer Active Carlton Hu MD Acti ve PREDNISONE 20 MG ORAL TABS 3 tab PO qd x 2d, 2 tab PO qd x 2d, 1 tab PO qd x 2d, 1/2 tab PO qd x 2d PREDNISONE 32423189471 No Longer Active Carlton Hu MD Active FLUTICASONE PROPIONATE 50 MCG/ACT SUSP 1 to 2 sprays each no stril daily FLUTICASONE PROPIONATE 40534978797 No Longer Active T jaz HERNANDEZ Active CHERATUSSIN AC 100-10 MG/5ML SYRP 1 tsp by mouth every 4 hours as needed for cough GUAIFENESIN-CODEINE 47598355537 No Longer Activ e Blaine HERNANDEZ Active PROMETHAZINE-CODEINE 6.25-10 MG/5ML SYRP 1 tsp by mout h every 6 hours if needed for cough PROMETHAZINE-CODEINE 81881315923 No Long er Active Blaine HERNANDEZ Active CHERATUSSIN AC 100-10 MG/5ML SYRP 1 tsp by mouth every 4 hours as needed for cough GUAIFENESIN-CODEINE 08099964373 No Longer Activ Jorge Luis HERNANDEZ Active ZITHROMAX Z-REYNA 250 MG TABS 2 today, then 1 daily for 4 days 201 08/30/03 AZITHROMYCIN 40491787084 No Longer Active Columba Raida Act nael ZITHROMAX 250 MG TAB 2 po today, then 1 po q days 2-5 AZITHROMYCIN 22758174420 No Longer Active Carlton Hu MD Acti ve ZITHROMAX Z-REYNA 250 MG TABS 2 today, then 1 daily for 4 days 201 08/07/20 AZITHROMYCIN 67125389470 No Longer Active Columba Raida Act nael AUGMENTIN 875-125 MG TAB 1 po BID x 10 days AMOXICILLIN- POT CLAVULANATE 79597782424 No Longer Active Jillshakira Guerrerol SALES REPRESENTATIVE ADVERTISING Active ZITHROMAX 250 MG TAB 2 po today, then 1 po q days 2-5 AZITHROMYCIN 38722358480 No Longer Active Carlton Hu MD Acti ve TRAMADOL HCL 50 MG TABS 1 po tid with ES Tylenol TRAMADOL HCL 73919026663 Active Carlton Hu MD Active PREMARIN 0.625 MG TABS TAKE 1 TAB BY MOUTH DAILY 07/25 ESTROGENS CONJUGATED 57445335514 No Longer Active Ridge Bess DO Active CYMBALTA 30 MG CPEP 1 cap by mouth daily DULOXE SNEHA HCL 58602617433 No Longer Active Ridge Bess DO Active AMOXICILLIN 500 MG CAP 1 tab by mouth 3 times daily x 10 days 20 14/04/28 AMOXICILLIN 61303553271 No Longer Active Carlton Hu MD Active AMOXICILLIN 500 MG CAP 1 tab by mouth 3 times daily x 10 days 20 13/03/08 AMOXICILLIN 00847782674 No Longer Active Carlton Hu MD Active PROMETHAZINE-CODEINE 6.25-10 MG/5ML SYRP 1 tsp by mouth ever y 8 hours prn cough PROMETHAZINE-CODEINE 43818465042 No Longer Active Robert Hu MD Active MEDROL (REYNA) 4 MG TABS 6 pills x 1 day, then 5 pill s x 1 day then 4 pills x 1 day, then 3 pills x 1 day, then 2 pills x 1 day, then 1 pill x 1 day, then stop METHYLPREDNISOLONE 63064119963 No Longer Active Parris Mora MD Active AZITHROMYCIN 250 MG TABS 2 po qd x 1 day, then 1 po qd x 4 days AZITHROMYCIN 45867592729 No Longer Active Perez Mora MD Active SYMBICORT 160-4.5 MCG/ACT AERO 2 puffs bid with rinse after 2011 BUDESONIDE-FORMOTEROL FUMARATE 48191108666 No Longer Active Perez Mora MD Active LYRICA 75 MG CAPS TAKE 1 CAPSULE BY MOUTH TWICE DAILY 2013 PREGABALIN 49232850654 No Longer Active Carlton Hu MD Active TOPAMAX 25 MG TABS 1 qHS x 1 week, then 1 BID x 1 week, then 1 qAM and 2 qHS x 1 week, then 2 BID (migraine prevention) TOPIRAMAT E 35330141488 No Longer Active Jerica FUENTES Active TOPAMAX 50 MG TABS take 1 tab po BID for migraines. 12/07/10 TOPIRAMATE 99628789247 No Longer Active Jerica FUENTES Ac tive TOPAMAX 100 MG TABS Take 1 tablet po bid TOPIRAMATE 4999 3678008 Active Carlton Hu MD Active TRIAMCINOLONE ACETONIDE 0.1 % CREA apply three times daily prn r beatrice TRIAMCINOLONE ACETONIDE 16516425701 No Longer Active Carlton Hu MD Active PAXIL 40 MG TAB take 1 tab po qday for depression PAROXETINE HCL 51965396837 Active Carlton Hu MD Active CHERATUSSIN AC 100-10 MG/5ML SYRP 5ml po q6hr PRN Cough GUAIFENESIN-CODEINE 69528373325 No Longer Active Carlton Hu MD Active MEDROL (REYNA) 4 MG TABS 6 tabs on day 1, 5 tabs on d ay 2, 4 tabs on day 3, 3 tabs on day 4, 2 tabs on day 5, 1 tab on day 6 METHYLPREDNISOLONE 44261660045 No Longer Active Perez Mora MD Active AZITHROMYCIN 250 MG TABS 2 po qd x 1 day, then 1 po qd x 4 days AZITHROMYCIN 39598652474 No Longer Active Perez Mora MD Active PROPRANOLOL HCL 60 MG TABS 1 PO Q D PROPRANOL OL HCL 21755287917 No Longer Active Perez Mora MD Active CHERATUSSIN AC 100-10 MG/5ML SYRP take one tsp po Q 6hours prn c ough GUAIFENESIN-CODEINE 46729472709 No Longer Active Perez Means Active AUGMENTIN 875-125 MG TAB 1 tab by mouth twice daily with food 20 12/03/31 AMOXICILLIN-POT CLAVULANATE 90386150574 No Longer Active Chanel Mora MD Active CHERATUSSIN AC 100-10 MG/5ML SYRP 1 tsp by mouth every 4 hours as needed for cough GUAIFENESIN-CODEINE 28282958706 No Longer Activ e Hugo Restrepo MD Active ACETAMINOPHEN-CODEINE #3 300-30 MG TABS 1 PO Q 4-6 HRS PRN PAIN ACETAMINOPHEN-CODEINE 21004326449 No Longer Active Hugo Restrepo MD Active LEVAQUIN 500 MG TABS take one po QD LEVOFLOXACI N 39542249893 No Longer Active Griffin HERNANDEZ Active PREDNISONE 20 MG TAB Take 3 tabs daily for 3 days , 2 tabs daily for 3 days, 1 tab daily for 3 days, 1/2 tab daily for 3 days P REDNISONE 13063174789 No Longer Active Carlton Hu MD Active AVELOX 400 MG TABS 1 tab by mouth daily MOXIFLO XACIN HCL 18694210547 No Longer Active Carlton Hu MD Active CHERATUSSIN AC 100-10 MG/5ML SYRP 1 tsp by mouth every 4 hours as needed for cough GUAIFENESIN-CODEINE 68763377026 No Longer Activ e Hugo Restrepo MD Active AVELOX 400 MG TABS 1 tab by mouth daily MOXIFLO XACIN HCL 44088428313 No Longer Active Marcy De La Rosa MD PhD Active TERBINAFINE HCL 250 MG TABS 1 qDay TERBINAF INE HCL 79205316114 No Longer Active Marcy De La Rosa MD PhD Active CHERATUSSIN AC 100-10 MG/5ML SYRP 1 tsp by mouth every 4 hours as needed for cough GUAIFENESIN-CODEINE 21910831186 No Longer Activ e Marcy De La Rosa MD PhD Active AVELOX 400 MG TABS 1 tab by mouth daily MOXIFLO XACIN HCL 34902456683 No Longer Active Marcy De La Rosa MD PhD Active HYDROCODONE-ACETAMINOPHEN 5-325 MG TABS 1 po q 6hr PRN cough 201 05/09/16 HYDROCODONE-ACETAMINOPHEN 08873789786 No Longer Active Marcy De La Rosa MD PhD Active PREDNISONE 20 MG TAB 2 tabs daily for 3 days, 1 t ab daily for 3 days, 1/2 tab daily for 2 days PREDNISONE 20299541089 No Longer Active Carlton Hu MD Active CEFDINIR 300 MG CAPS by mouth twice a day CEFDI ODILIA 38749934138 No Longer Active Carlton Hu MD Active HYDROCHLOROTHIAZIDE 25 MG TABS 1 TAB PO DAILY H YDROCHLOROTHIAZIDE 32926780017 Active Carlton Hu MD Active ACETAMINOPHEN-CODEINE #3 300-30 MG TABS 1 tablet po q 4-6hrs prn pain ACETAMINOPHEN-CODEINE 21089073469 No Longer Active Ridge W Shahriar DO Active ZITHROMAX 250 MG TAB 2 po today, then 1 po q days 2-5 AZITHROMYCIN 37683277548 No Longer Active Carlton Hu MD Acti ve CHERATUSSIN AC 100-10 MG/5ML SYRP take 1 tsp po q4-6 hours prn c ough GUAIFENESIN-CODEINE 26445192290 No Longer Active Carlton Hu MD Active ACETAMINOPHEN-CODEINE #3 300-30 MG TABS 1 PO Q 4-6 HR PRN PAIN 2 ACETAMINOPHEN-CODEINE 42983577780 No Longer Active Carlton rich MD Active LORTAB 7.5-500 MG/15ML ELIX 7.5 ml po q 4 hour prn cough HYDROCODONE-ACETAMINOPHEN 43107243574 No Longer Active Carlton Hu MD Active PREDNISONE 20 MG TAB 1 po bid 3 days, then 1 po q day 3 days 201 05/03/07 PREDNISONE 59658790049 No Longer Active Carlton Hu MD Active ELMIRON 100 MG CAPS 2 tablets in the am and 1 tablet at hs PENTOSAN POLYSULFATE SODIUM 63173542922 Active Carlton Hu MD Ac tive CEFDINIR 300 MG CAPS by mouth twice a day CEFDI ODILIA 20198887939 No Longer Active Carlton Hu MD Active CEFDINIR 300 MG CAPS by mouth twice a day CEFDI ODILIA 72000057846 No Longer Active Carlton Hu MD Active CEFDINIR 300 MG CAPS by mouth twice a day CEFDI ODILIA 94873411441 No Longer Active Carlton Hu MD Active TESSALON PERLES 100 MG CAP 1 tablet by mouth 3 times daily a s needed for cough BENZONATATE 60693774915 No Longer Active Carlton bustamante MD Active CEFDINIR 300 MG CAPS by mouth twice a day CEFDI ODILIA 84808826339 No Longer Active Carlton Hu MD Active ZITHROMAX Z-REYNA 250 MG TABS 2 today, then 1 daily for 4 days 201 04/09/17 AZITHROMYCIN 98326516409 No Longer Active Hugo Restrepo MD Active TESSALON PERLES 100 MG CAP 1 tablet by mouth 3 times daily a s needed for cough TESSALON PERLES 100 MG CAP 109094 BENZONATATE I nactive PREDNISONE 20 MG TAB 1 po bid 3 days, then 1 po q day 3 days 201 05/03/07 PREDNISONE 20 MG TAB 068445 PREDNISONE Inactive LORTAB 7.5-500 MG/15ML ELIX 7.5 ml po q 4 hour prn cough LORTAB 7.5-500 MG/15ML ELIX 5292446 HYDROCODONE-ACETAMINOPHEN Inacti ve ACETAMINOPHEN-CODEINE #3 300-30 MG TABS 1 PO Q 4-6 HR PRN PAIN 2 ACETAMINOPHEN-CODEINE #3 300-30 MG TABS ACETAMIN OPHEN-CODEINE Inactive CHERATUSSIN AC 100-10 MG/5ML SYRP take 1 tsp po q4-6 hours prn c ough CHERATUSSIN AC 100-10 MG/5ML SYRP 781181 GUAIFENESIN-CO DEINE Inactive ACETAMINOPHEN-CODEINE #3 300-30 MG TABS 1 tablet po q 4-6hrs prn pain ACETAMINOPHEN-CODEINE #3 300-30 MG TABS ACETAMIN OPHEN-CODEINE Inactive HYDROCODONE-ACETAMINOPHEN 5-325 MG TABS 1 po q 6hr PRN cough 201 05/09/16 HYDROCODONE-ACETAMINOPHEN 5-325 MG TABS 696524 HYDROCODONE-ACETAMINOPHEN Inactive AVELOX 400 MG TABS 1 tab by mouth daily A VELOX 400 MG TABS 450839 MOXIFLOXACIN HCL Inactive CHERATUSSIN AC 100-10 MG/5ML SYRP 1 tsp by mouth every 4 hours as needed for cough CHERATUSSIN AC 100-10 MG/5ML SYRP 832180 GUAIFENESIN-CODEINE Inactive TERBINAFINE HCL 250 MG TABS 1 qDay TERBINAFINE HCL 250 MG TABS 465186 TERBINAFINE HCL Inactive CHERATUSSIN AC 100-10 MG/5ML SYRP 1 tsp by mouth every 4 hours as needed for cough CHERATUSSIN AC 100-10 MG/5ML SYRP 692953 GUAIFENESIN-CODEINE Inactive ACETAMINOPHEN-CODEINE #3 300-30 MG TABS 1 PO Q 4-6 HRS PRN PAIN ACETAMINOPHEN-CODEINE #3 300-30 MG TABS ACETAMINOPHEN-CODEIN E Inactive CHERATUSSIN AC 100-10 MG/5ML SYRP 1 tsp by mouth every 4 hours as needed for cough CHERATUSSIN AC 100-10 MG/5ML SYRP 786703 GUAIFENESIN-CODEINE Inactive AUGMENTIN 875-125 MG TAB 1 tab by mouth twice daily with food 20 12/03/31 AUGMENTIN 875-125 MG TAB 189269 AMOXICILLIN-POT CLAVULA EFE Inactive CHERATUSSIN AC 100-10 MG/5ML SYRP take one tsp po Q 6hours prn c ough CHERATUSSIN AC 100-10 MG/5ML SYRP 677350 GUAIFENESIN-CO DEINE Inactive PROPRANOLOL HCL 60 MG TABS 1 PO Q D P ROPRANOLOL HCL 60 MG TABS 205021 PROPRANOLOL HCL Inactive TOPAMAX 50 MG TABS take 1 tab po BID for migraines. 12/07/10 TOPAMAX 50 MG TABS 440094 TOPIRAMATE Inactive TOPAMAX 25 MG TABS 1 qHS x 1 week, then 1 BID x 1 week, then 1 qAM and 2 qHS x 1 week, then 2 BID (migraine prevention) TOPAMAX 2 5 MG TABS 943389 TOPIRAMATE Inactive LYRICA 75 MG CAPS TAKE 1 CAPSULE BY MOUTH TWICE DAILY LYRICA 75 MG CAPS PREGABALIN Inactive SYMBICORT 160-4.5 MCG/ACT AERO 2 puffs bid with rinse after 2011 SYMBICORT 160-4.5 MCG/ACT AERO BUDESONIDE-FORMOT SÁNCHEZ FUMARATE Inactive PROMETHAZINE-CODEINE 6.25-10 MG/5ML SYRP 1 tsp by mouth ever y 8 hours prn cough PROMETHAZINE-CODEINE 6.25-10 MG/5ML SYRP 289851 PROMETHAZINE-CODEINE Inactive CYMBALTA 30 MG CPEP 1 cap by mouth daily CYMBALTA 30 MG CPEP 018529 DULOXETINE HCL Inactive PREMARIN 0.625 MG TABS TAKE 1 TAB BY MOUTH DAILY 07/25 PREMARIN 0.625 MG TABS ESTROGENS CONJUGATED Inactive CHERATUSSIN AC 100-10 MG/5ML SYRP 1 tsp by mouth every 4 hours as needed for cough CHERATUSSIN AC 100-10 MG/5ML SYRP 730038 GUAIFENESIN-CODEINE Inactive PROMETHAZINE-CODEINE 6.25-10 MG/5ML SYRP 1 tsp by mout h every 6 hours if needed for cough PROMETHAZINE-CODEINE 6.25-10 MG/5ML SYRP 629254 PROMETHAZINE-CODEINE Inactive CHERATUSSIN AC 100-10 MG/5ML SYRP 1 tsp by mouth every 4 hours as needed for cough CHERATUSSIN AC 100-10 MG/5ML SYRP 143984 GUAIFENESIN-CODEINE Inactive FLUTICASONE PROPIONATE 50 MCG/ACT SUSP 1 to 2 sprays each no stril daily FLUTICASONE PROPIONATE 50 MCG/ACT SUSP 7998803 FLUTICASONE PROPIONATE Inactive PREDNISONE 20 MG ORAL TABS 3 tab PO qd x 2d, 2 tab PO qd x 2d, 1 tab PO qd x 2d, 1/2 tab PO qd x 2d PREDNISONE 20 MG ORAL TABS 781137 PREDNISONE Inactive LEVOFLOXACIN 500 MG ORAL TABS 1 tab PO daily x 10 days LEVOFLOXACIN 500 MG ORAL TABS 853563 LEVOFLOXACIN Inactive CYCLOBENZAPRINE HCL 10 MG TABS 1 tablet by mouth BID prn had cherelle n CYCLOBENZAPRINE HCL 10 MG TABS 102563 CYCLOBENZAPRINE H CL Inactive ZOCOR 40 MG TAB 1 tab by mouth daily ZOCOR 40 M G TAB 693451 SIMVASTATIN Inactive TUSSIONEX PENNKINETIC ER 10-8 MG/5ML [...] empty FLUTICASONE PROPIONATE 50 MCG/ACT SUSP 17 62525 FLUTICASONE PROPIONATE Inactive TUSSIONEX PENNKINETIC ER 10-8 [...] 201 04/09/17 ZITHROMAX Z-REYNA 250 MG TABS 362970 AZITHROMYCIN Inac tive CEFDINIR 300 MG CAPS [...] q days 2-5 ZITHROMAX 250 MG TAB 388373 AZITHROMYCIN Inactive CEFDINIR 300 MG CAPS by mouth twice a day CEFDINIR 300 MG CAPS 20020704 CEFDINIR Inactive PREDNISONE 20 MG TAB 2 tabs daily for 3 days, 1 t ab daily for 3 days, 1/2 tab daily for 2 days PREDNISONE 20 MG TAB 418793 PREDNISON E Inactive AVELOX 400 MG TABS 1 tab by mouth daily A VELOX 400 MG TABS 057987 MOXIFLOXACIN HCL Inactive AVELOX 400 MG TABS 1 tab by mouth daily A VELOX 400 MG TABS 897791 MOXIFLOXACIN HCL Inactive PREDNISONE 20 MG TAB Take 3 tabs daily for 3 days , 2 tabs daily for 3 days, 1 tab daily for 3 days, 1/2 tab daily for 3 days PREDNISONE 20 MG TAB 756180 PREDNISONE Inactive LEVAQUIN 500 MG TABS take one po QD LEVAQUIN 50 0 MG TABS 855948 LEVOFLOXACIN Inactive AZITHROMYCIN 250 MG TABS 2 po qd x 1 day, then 1 po qd x 4 days AZITHROMYCIN 250 MG TABS 874587 AZITHROMYCIN Inactiv e MEDROL (REYNA) 4 MG TABS 6 tabs on day 1, 5 tabs on d ay 2, 4 tabs on day 3, 3 tabs on day 4, 2 tabs on day 5, 1 tab on day 6 MEDROL (REYNA) 4 MG TABS 483841 METHYLPREDNISOLONE Inactive CHERATUSSIN AC 100-10 MG/5ML SYRP 5ml po q6hr PRN Cough CHERATUSSIN AC 100-10 MG/5ML SYRP 523359 GUAIFENESIN-CODEINE Inacti ve TRIAMCINOLONE ACETONIDE 0.1 % CREA apply three times daily prn r beatrice TRIAMCINOLONE ACETONIDE 0.1 % CREA 0592568 TRIAMCINOLONE ACETONIDE Inactive AZITHROMYCIN 250 MG TABS 2 po qd x 1 day, then 1 po qd x 4 days AZITHROMYCIN 250 MG TABS 087879 AZITHROMYCIN Inactiv e MEDROL (REYNA) 4 MG TABS 6 pills x 1 day, then 5 pill s x 1 day then 4 pills x 1 day, then 3 pills x 1 day, then 2 pills x 1 day, then 1 pill x 1 day, then stop MEDROL (REYNA) 4 MG TABS 357687 METHYLPREDNISOLONE Inactive AMOXICILLIN 500 MG CAP 1 tab by mouth 3 times daily x 10 days 20 13/03/08 AMOXICILLIN 500 MG CAP 615963 AMOXICILLIN Inactive AMOXICILLIN 500 MG CAP 1 tab by mouth 3 times daily x 10 days 20 14/04/28 AMOXICILLIN 500 MG CAP 567546 AMOXICILLIN Inactive ZITHROMAX 250 MG TAB 2 po today, then 1 po q days 2-5 ZITHROMAX 250 MG TAB 788114 AZITHROMYCIN Inactive AUGMENTIN 875-125 MG TAB 1 po BID x 10 days AUGMENTIN 875- 125 MG TAB 383994 AMOXICILLIN-POT CLAVULANATE Inactive ZITHROMAX Z-REYNA 250 MG TABS 2 today, then 1 daily for 4 days 201 08/07/20 ZITHROMAX Z-REYNA 250 MG TABS 781555 AZITHROMYCIN Inac tive ZITHROMAX 250 MG TAB 2 po today, then 1 po q days 2-5 ZITHROMAX 250 MG TAB 981607 AZITHROMYCIN Inactive ZITHROMAX Z-REYNA 250 MG TABS 2 today, then 1 daily for 4 days 201 08/30/03 ZITHROMAX Z-REYNA 250 MG TABS 880450 AZITHROMYCIN Inac tive CEFDINIR 300 MG CAPS 1 po BID x 10 days C EFDINIR 300 MG CAPS 558495 CEFDINIR Inactive ZITHROMAX 250 MG TAB 2 po today, then 1 po q days 2-5 ZITHROMAX 250 MG TAB 538494 AZITHROMYCIN Inactive LEVAQUIN 500 MG TAB 1 tablet by mouth daily LEVAQUIN 500 MG TAB 049901 LEVOFLOXACIN Inactive SINGULAIR 10 MG TABS 1 po qday for allergies 2 SINGULAIR 10 MG TABS 20010504 MONTELUKAST SODIUM Inactive AMOXICILLIN 500 MG CAPS 2 po BID x 10 days AMOXICILLIN 500 MG CAPS 808953 AMOXICILLIN Inactive PREDNISONE 20 MG TAB 2 tabs daily for 3 days, 1 t ab daily for 3 days, 1/2 tab daily for 2 days PREDNISONE 20 MG TAB 894013 PREDNISON E Inactive ZITHROMAX Z-REYNA 250 MG TABS 2 today, then 1 daily for 4 days 201 09/29/14 ZITHROMAX Z-RENYA 250 MG TABS 389453 AZITHROMYCIN Inac tive PREDNISONE 20 MG TAB 2 tabs daily for 3 days, 1 t ab daily for 3 days, 1/2 tab daily for 2 days PREDNISONE 20 MG TAB 253273 PREDNISON E Inactive ZITHROMAX 250 MG TAB 2 po today, then 1 po q days 2-5 ZITHROMAX 250 MG TAB 216819 AZITHROMYCIN Inactive Vital Signs Date Name Value [...] - Chem istry sodium, serum 132 mmol/L 654-003 0565/07/12 potassium, serum 2.7 mmol/L 3.5-5.2 chloride, serum 93 mmol/L 98-107 carbon dioxide, venous blood 30.8 mmol/L 21.0-32 .0 blood glucose 107 mg/dL 65-110 calcium, serum 9.3 mg/dL 8.5-10.1 urea nitrogen, blood 12 mg/dL 7-18 creatinine, serum 1.00 mg/dL 0.60-1.30 sodium, serum 142 mmol/L 762-883 7767/07/17 potassium, serum 4.2 mmol/L 3.5-5.2 chloride, serum 106 mmol/L 98-107 carbon dioxide, venous blood 29.9 mmol/L 21.0-32 .0 blood glucose 108 mg/dL 65-110 calcium, serum 9.1 mg/dL 8.5-10.1 urea nitrogen, blood 11 mg/dL 7-18 creatinine, serum 0.81 mg/dL 0.60-1.30 Lab Report: Rapid Strep - Lab Microbial identification kit, rapid strep method Negative Negative Encounters Code Encounter Date Provider Facility CPT-63871 Level 3 Est. Patient 12:17:50 CDT Hugo Restrepo MD [facility] CPT-21727 Level 3 Est. Patient 13:42:38 CDT Italo [facility] CPT-29909 Level 3 Est. Patient 13:23:51 CDT Diya cobian [facility] CPT-79686 Level 3 Est. Patient 14:22:19 [employer] AND FIRE DISPATCHER Diya cobian [facility] CPT-02146 Level 3 Est. Patient 10:11:46 CDT Carlton rich MD [facility] CPT-42433 Level 3 Est. Patient 17:29:43 CDT Italo [facility] CPT-07309 Level 3 Est. Patient 11:58:06 CDT Italo [facility] CPT-53826 Level 4 Est. Patient 14:36:51 CDT Carlton rich MD [facility] CPT-18534 Level 3 Est. Patient 18:16:00 [employer] AND FIRE DISPATCHER Blaine Freeman [facility] CPT-94505 Level 3 Est. 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 CPT-33957 Level 3 Est. Patient 13:19:20 CDT Carlton rich MD [facility] CPT-21188 Level 3 Est. Patient 13:06:43 CDT Ridge tam DO [facility] CPT-51494 Level 3 Est. Patient 10:03:07 CDT Perez Mora MD [facility]-18812 Level 3 Est. Patient 19:50:35 [employer] AND FIRE DISPATCHER Carlton rich MD [facility] CPT-69544 Level 4 Est. Patient 18:05:01 [employer]ICE AND FIRE DISPATCHER Carlton rich MD [facility] CPT-08233 Level 3 Est. Patient 10:45:55 [employer] AND FIRE DISPATCHER Hugo Restrepo MD [facility]-99266 Level 3 Est. Patient 14:12:49 CDT Griffin lincoln [facility]-56514 Level 3 Est. Patient 17:37:24 CDT Carlton rich MD [facility]-51050 Level 3 Est. Patient 16:51:54 CDT Carlton rich MD [facility]-25510 Level 3 Est. Patient 12:18:11 CDT Hugo Restrepo MD [facility]-15598 Level 3 Est. Patient 11:30:25 CDT Marcy crisostomo MD PhD [facility]-50436 Level 3 Est. Patient 12:00:47 [employer]RE [employer]PATCH[employer] Carlton rich MD [facility] CPT-09997 Level 3 Est. 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 CPT-81662 Level 3 Est. Patient 16:23:24 [employer] AND FIRE DISPATCHER [facility] CPT-78758 Level 3 Est. Patient 12:34:12 CDT Carlton rich MD [facility] CPT-31211 Level 2 Est. Patient 15:43:33 CDT Robi armstrong MD [facility] CPT-19033 Level 4 Est. Patient 14:04:44 CDT Carlton rich MD [facility] CPT-94831 Level 3 Est. Patient 05:47:59 CDT [facility] CPT-54077 Level 3 Est. Patient 13:12:53 [employer] AND [employer]RE DISPATCH[employer] Carlton rich MD [facility] CPT-37875 Level 3 Est. Patient 14:26:53 CDT Hugo Restrepo MD [facility] Procedures Code Procedure Name Date Entry Date Standard Desc ription CPT-J1040 Depo Medrol 80 mg (Methyl Prednisolone A cetate) 10:42:44 CDT CPT-J1100 Decadron 8mg (Dexamethasone) 10:42:44 CDT 2 CPT-J0696 Rocephin 1gm Inj Solr 14:32:13 CDT CPT-J1020 Depo Medrol 60 mg (Methyl Prednisolone A cetate) 14:32:13 CDT CPT-J1100 Decadron 6mg (Dexamethasone) 14:32:13 CDT 2 CPT-93097 Hip bilat min 2V w AP pelvis 13:16:20 CDT 2 CPT-80228 Pelvis only 13:07:33 CDT CPT-90488 Spec Collection and Handling Fee 11:25:12 C DT CPT-00593 Fluzone Quadrivalent Intramuscular Suspe nsion 0.5 ML 14:31:55 CDT CPT-89690 Abx/Therapy Injection 13:28:47 [employer]ICE AND FIRE DISPATCHER CPT-J2930 Solu Medrol 125 mg (Methyl Prednisolone Sodium Succinate) 12:00:47 [employer] AND [employer] 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
--- OUTSIDE RECORDS SUMMARY | 2019-10-08 08:20 | XMS REPORT | Clinical Summary ---
Author Author Caitlin, Juliana Martinez Organization [facility] Address Unknown Phone Unavailable Allergies, Adverse Reactions, Alerts Allergy Name Reaction Description Start Date Severity Status Pr ovider No Known Allergies [facility] Conditions or Problems Problem Name Problem Code [...] Instruction TUSSIONEX PENNKINETIC ER 10-8 MG/5ML ORAL LQCR 5 mL PO q 12 hrs PRN cough HYDROCOD POLST-CHLORPHEN POLST 31709836005 Active Blaine HERNANDEZ Active PREDNISONE 20 MG ORAL TABS 3 tab PO qd x 2d, 2 tab PO qd x 2d, 1 tab PO qd x 2d, 1/2 tab PO qd x 2d PREDNISONE 93641840562 Active Khanh HERNANDEZ Active LEVOFLOXACIN 500 MG ORAL TABS 1 tab PO daily x 10 days LEVOFLOXACIN 41468605354 Active Blaine HERNANDEZ Active FLUTICASONE PROPIONATE 50 MCG/ACT SUSP 1 to 2 sprays each no stril daily FLUTICASONE PROPIONATE 56266417264 No Longer Active T jaz HERNANDEZ Active CHERATUSSIN AC 100-10 MG/5ML SYRP 1 tsp by mouth every 4 hours as needed for cough GUAIFENESIN-CODEINE 96892476765 No Longer Activ e Blaine HERNANDEZ Active PROMETHAZINE-CODEINE 6.25-10 MG/5ML SYRP 1 tsp by mout h every 6 hours if needed for cough PROMETHAZINE-CODEINE 04877183481 No Long er Active Blaine HERNANDEZ Active CHERATUSSIN AC 100-10 MG/5ML SYRP 1 tsp by mouth every 4 hours as needed for cough GUAIFENESIN-CODEINE 46601664376 No Longer Activ e Blaine HERNANDEZ Active ZITHROMAX Z-REYNA 250 MG TABS 2 today, then 1 daily for 4 days 201 08/30/03 AZITHROMYCIN 70927039923 No Longer Active Columba Raida Act nael ZITHROMAX 250 MG TAB 2 po today, then 1 po q days 2-5 AZITHROMYCIN 97954614218 No Longer Active Carlton Hu MD Acti ve ZITHROMAX Z-REYNA 250 MG TABS 2 today, then 1 daily for 4 days 201 08/07/20 AZITHROMYCIN 32148782534 No Longer Active Columba Raida Act nael AUGMENTIN 875-125 MG TAB 1 po BID x 10 days AMOXICILLIN- POT CLAVULANATE 12311347070 No Longer Active Diya De Guzman APRN Active ZITHROMAX 250 MG TAB 2 po today, then 1 po q days 2-5 AZITHROMYCIN 30925495135 No Longer Active Carlton Hu MD Acti ve TRAMADOL HCL 50 MG TABS 1 po tid with ES Tylenol TRAMADOL HCL 52082379701 Active Carlton Hu MD Active PREMARIN 0.625 MG TABS TAKE 1 TAB BY MOUTH DAILY 07/25 ESTROGENS CONJUGATED 58454471256 No Longer Active Ridge Bess DO Active CYMBALTA 30 MG CPEP 1 cap by mouth daily DULOXE SNEHA HCL 70811673039 No Longer Active Ridge Bess DO Active AMOXICILLIN 500 MG CAP 1 tab by mouth 3 times daily x 10 days 20 14/04/28 AMOXICILLIN 43902959968 No Longer Active Carlton Hu MD Active AMOXICILLIN 500 MG CAP 1 tab by mouth 3 times daily x 10 days 20 13/03/08 AMOXICILLIN 04133237768 No Longer Active Carlton Hu MD Active CYCLOBENZAPRINE HCL 10 MG TABS 1 tablet by mouth BID prn had pain 2 CYCLOBENZAPRINE HCL 61567554922 Active Carlton Hu MD A ctive PROMETHAZINE-CODEINE 6.25-10 MG/5ML SYRP 1 tsp by mouth ever y 8 hours prn cough PROMETHAZINE-CODEINE 46004110505 No Longer Active Robert Hu MD Active MEDROL (REYNA) 4 MG TABS 6 pills x 1 day, then 5 pill s x 1 day then 4 pills x 1 day, then 3 pills x 1 day, then 2 pills x 1 day, then 1 pill x 1 day, then stop METHYLPREDNISOLONE 61899417596 No Longer Active Parris Mora MD Active AZITHROMYCIN 250 MG TABS 2 po qd x 1 day, then 1 po qd x 4 days AZITHROMYCIN 21885361966 No Longer Active Perez Mora MD Active SYMBICORT 160-4.5 MCG/ACT AERO 2 puffs bid with rinse after 2011 BUDESONIDE-FORMOTEROL FUMARATE 90229393049 No Longer Active Perez Mora MD Active LYRICA 75 MG CAPS TAKE 1 CAPSULE BY MOUTH TWICE DAILY 2013 PREGABALIN 45523410254 No Longer Active Carlton Hu MD Active LYRICA 100 MG CAPS Take 1 tab po BID for fibromyalgia PREGABALIN 17014593468 Active Carlton Hu MD Active TOPAMAX 25 MG TABS 1 qHS x 1 week, then 1 BID x 1 week, then 1 qAM and 2 qHS x 1 week, then 2 BID (migraine prevention) TOPIRAMAT E 43452991438 No Longer Active Jerica Farnaz RMA Active TOPAMAX 50 MG TABS take 1 tab po BID for migraines. 12/07/10 TOPIRAMATE 01069281124 No Longer Active Jerica AGUILARA Ac tive TOPAMAX 100 MG TABS Take 1 tablet po bid TOPIRAMATE 4999 5591685 Active Carlton Hu MD Active TRIAMCINOLONE ACETONIDE 0.1 % CREA apply three times daily prn r beatrice TRIAMCINOLONE ACETONIDE 46653388461 No Longer Active Carlton Hu MD Active PAXIL 40 MG TAB take 1 tab po qday for depression PAROXETINE HCL 03532310959 Active Elise Whitmore [employer] ENGINE OPTIMIZER Active CHERATUSSIN AC 100-10 MG/5ML SYRP 5ml po q6hr PRN Cough GUAIFENESIN-CODEINE 08389128657 No Longer Active Carlton Hu MD Active MEDROL (REYNA) 4 MG TABS 6 tabs on day 1, 5 tabs on d ay 2, 4 tabs on day 3, 3 tabs on day 4, 2 tabs on day 5, 1 tab on day 6 METHYLPREDNISOLONE 84532197282 No Longer Active Perez Mora MD Active AZITHROMYCIN 250 MG TABS 2 po qd x 1 day, then 1 po qd x 4 days AZITHROMYCIN 35194765026 No Longer Active Perez Mora MD Active PROPRANOLOL HCL 60 MG TABS 1 PO Q D PROPRANOL OL HCL 83960755844 No Longer Active Perez Mora MD Active CHERATUSSIN AC 100-10 MG/5ML SYRP take one tsp po Q 6hours prn c ough GUAIFENESIN-CODEINE 19248123317 No Longer Active Perez Means Active AUGMENTIN 875-125 MG TAB 1 tab by mouth twice daily with food 20 12/03/31 AMOXICILLIN-POT CLAVULANATE 84347768505 No Longer Active Chanel Mora MD Active CHERATUSSIN AC 100-10 MG/5ML SYRP 1 tsp by mouth every 4 hours as needed for cough GUAIFENESIN-CODEINE 35604012927 No Longer Activ e Hugo Restrepo MD Active ACETAMINOPHEN-CODEINE #3 300-30 MG TABS 1 PO Q 4-6 HRS PRN PAIN ACETAMINOPHEN-CODEINE 74779145885 No Longer Active Hugo Restrepo MD Active LEVAQUIN 500 MG TABS take one po QD LEVOFLOXACI N 85484573836 No Longer Active Griffin HERNANDEZ Active PREDNISONE 20 MG TAB Take 3 tabs daily for 3 days , 2 tabs daily for 3 days, 1 tab daily for 3 days, 1/2 tab daily for 3 days P REDNISONE 30467550974 No Longer Active Carlton Hu MD Active AVELOX 400 MG TABS 1 tab by mouth daily MOXIFLO XACIN HCL 04745160605 No Longer Active Carlton Hu MD Active CHERATUSSIN AC 100-10 MG/5ML SYRP 1 tsp by mouth every 4 hours as needed for cough GUAIFENESIN-CODEINE 60683237003 No Longer Activ e Hugo Restrepo MD Active AVELOX 400 MG TABS 1 tab by mouth daily MOXIFLO XACIN HCL 56422540069 No Longer Active Marcy De La Rosa MD PhD Active TERBINAFINE HCL 250 MG TABS 1 qDay TERBINAF INE HCL 65946395992 No Longer Active Marcy De La Rosa MD PhD Active CHERATUSSIN AC 100-10 MG/5ML SYRP 1 tsp by mouth every 4 hours as needed for cough GUAIFENESIN-CODEINE 79598820319 No Longer Activ e Marcy De La Rosa MD PhD Active AVELOX 400 MG TABS 1 tab by mouth daily MOXIFLO XACIN HCL 69544801914 No Longer Active Marcy De La Rosa MD PhD Active HYDROCODONE-ACETAMINOPHEN 5-325 MG TABS 1 po q 6hr PRN cough 201 05/09/16 HYDROCODONE-ACETAMINOPHEN 11923276159 No Longer Active Marcy De La Rosa MD PhD Active PREDNISONE 20 MG TAB 2 tabs daily for 3 days, 1 t ab daily for 3 days, 1/2 tab daily for 2 days PREDNISONE 94809212255 No Longer Active Carlton Hu MD Active CEFDINIR 300 MG CAPS by mouth twice a day CEFDI ODILIA 37691949271 No Longer Active Carlton Hu MD Active ZOCOR 40 MG TAB 1 tab by mouth daily SIMVASTATIN 18488624810 Active Carlton Hu MD Active HYDROCHLOROTHIAZIDE 25 MG TABS 1 TAB PO DAILY H YDROCHLOROTHIAZIDE 85123275007 Active Carlton Hu MD Active ACETAMINOPHEN-CODEINE #3 300-30 MG TABS 1 tablet po q 4-6hrs prn pain ACETAMINOPHEN-CODEINE 26728479520 No Longer Active Ridge Bess DO Active ZITHROMAX 250 MG TAB 2 po today, then 1 po q days 2-5 AZITHROMYCIN 62740991807 No Longer Active Carlton Hu MD Acti ve CHERATUSSIN AC 100-10 MG/5ML SYRP take 1 tsp po q4-6 hours prn c ough GUAIFENESIN-CODEINE 78574515336 No Longer Active Carlton Hu MD Active ACETAMINOPHEN-CODEINE #3 300-30 MG TABS 1 PO Q 4-6 HR PRN PAIN 2 ACETAMINOPHEN-CODEINE 37118828561 No Longer Active Carlton rich MD Active LORTAB 7.5-500 MG/15ML ELIX 7.5 ml po q 4 hour prn cough HYDROCODONE-ACETAMINOPHEN 82731611498 No Longer Active Carlton Hu MD Active PREDNISONE 20 MG TAB 1 po bid 3 days, then 1 po q day 3 days 201 05/03/07 PREDNISONE 34191958963 No Longer Active Carlton Hu MD Active ELMIRON 100 MG CAPS 2 tablets in the am and 1 tablet at hs PENTOSAN POLYSULFATE SODIUM 80798143184 Active Gracie Ossineke Active CEFDINIR 300 MG CAPS by mouth twice a day CEFDI ODILIA 77691149496 No Longer Active Carlton Hu MD Active CEFDINIR 300 MG CAPS by mouth twice a day CEFDI ODILIA 25297317233 No Longer Active Carlton Hu MD Active CEFDINIR 300 MG CAPS by mouth twice a day CEFDI ODILIA 23764756786 No Longer Active Carlton Hu MD Active TESSALON PERLES 100 MG CAP 1 tablet by mouth 3 times daily a s needed for cough BENZONATATE 25417336524 No Longer Active Carlton bustamante MD Active CEFDINIR 300 MG CAPS by mouth twice a day CEFDI ODILIA 70994133657 No Longer Active Carlton Hu MD Active ZITHROMAX Z-REYNA 250 MG TABS 2 today, then 1 daily for 4 days 201 04/09/17 AZITHROMYCIN 78363548082 No Longer Active Hugo Restrepo MD Active TESSALON PERLES 100 MG CAP 1 tablet by mouth 3 times daily a s needed for cough TESSALON PERLES 100 MG CAP 663250 BENZONATATE I nactive PREDNISONE 20 MG TAB 1 po bid 3 days, then 1 po q day 3 days 201 05/03/07 PREDNISONE 20 MG TAB 476157 PREDNISONE Inactive LORTAB 7.5-500 MG/15ML ELIX 7.5 ml po q 4 hour prn cough LORTAB 7.5-500 MG/15ML ELIX HYDROCODONE-ACETAMINOPHEN Inacti ve ACETAMINOPHEN-CODEINE #3 300-30 MG TABS 1 PO Q 4-6 HR PRN PAIN 2 ACETAMINOPHEN-CODEINE #3 300-30 MG TABS 830154 ACETAMIN OPHEN-CODEINE Inactive CHERATUSSIN AC 100-10 MG/5ML SYRP take 1 tsp po q4-6 hours prn c ough CHERATUSSIN AC 100-10 MG/5ML SYRP 722397 GUAIFENESIN-CO DEINE Inactive ACETAMINOPHEN-CODEINE #3 300-30 MG TABS 1 tablet po q 4-6hrs prn pain ACETAMINOPHEN-CODEINE #3 300-30 MG TABS 244241 ACETAMIN OPHEN-CODEINE Inactive HYDROCODONE-ACETAMINOPHEN 5-325 MG TABS 1 po q 6hr PRN cough 201 05/09/16 HYDROCODONE-ACETAMINOPHEN 5-325 MG TABS 468073 HYDROCODONE-ACETAMINOPHEN Inactive AVELOX 400 MG TABS 1 tab by mouth daily A VELOX 400 MG TABS 973873 MOXIFLOXACIN HCL Inactive CHERATUSSIN AC 100-10 MG/5ML SYRP 1 tsp by mouth every 4 hours as needed for cough CHERATUSSIN AC 100-10 MG/5ML SYRP 213446 GUAIFENESIN-CODEINE Inactive TERBINAFINE HCL 250 MG TABS 1 qDay TERBINAFINE HCL 250 MG TABS 028281 TERBINAFINE HCL Inactive CHERATUSSIN AC 100-10 MG/5ML SYRP 1 tsp by mouth every 4 hours as needed for cough CHERATUSSIN AC 100-10 MG/5ML SYRP 382366 GUAIFENESIN-CODEINE Inactive ACETAMINOPHEN-CODEINE #3 300-30 MG TABS 1 PO Q 4-6 HRS PRN PAIN ACETAMINOPHEN-CODEINE #3 300-30 MG TABS 110130 ACETAMINOPHEN-CODEIN E Inactive CHERATUSSIN AC 100-10 MG/5ML SYRP 1 tsp by mouth every 4 hours as needed for cough CHERATUSSIN AC 100-10 MG/5ML SYRP 660899 GUAIFENESIN-CODEINE Inactive AUGMENTIN 875-125 MG TAB 1 tab by mouth twice daily with food 20 12/03/31 AUGMENTIN 875-125 MG TAB 471078 AMOXICILLIN-POT CLAVULA EFE Inactive CHERATUSSIN AC 100-10 MG/5ML SYRP take one tsp po Q 6hours prn c ough CHERATUSSIN AC 100-10 MG/5ML SYRP 920832 GUAIFENESIN-CO DEINE Inactive PROPRANOLOL HCL 60 MG TABS 1 PO Q D P ROPRANOLOL HCL 60 MG TABS 084245 PROPRANOLOL HCL Inactive TOPAMAX 50 MG TABS take 1 tab po BID for migraines. 12/07/10 TOPAMAX 50 MG TABS 737731 TOPIRAMATE Inactive TOPAMAX 25 MG TABS 1 qHS x 1 week, then 1 BID x 1 week, then 1 qAM and 2 qHS x 1 week, then 2 BID (migraine prevention) TOPAMAX 2 5 MG TABS 522040 TOPIRAMATE Inactive LYRICA 75 MG CAPS TAKE 1 CAPSULE BY MOUTH TWICE DAILY LYRICA 75 MG CAPS PREGABALIN Inactive SYMBICORT 160-4.5 MCG/ACT AERO 2 puffs bid with rinse after 2011 SYMBICORT 160-4.5 MCG/ACT AERO BUDESONIDE-FORMOT SÁNCHEZ FUMARATE Inactive PROMETHAZINE-CODEINE 6.25-10 MG/5ML SYRP 1 tsp by mouth ever y 8 hours prn cough PROMETHAZINE-CODEINE 6.25-10 MG/5ML SYRP 182165 PROMETHAZINE-CODEINE Inactive CYMBALTA 30 MG CPEP 1 cap by mouth daily CYMBALTA 30 MG CPEP 519659 DULOXETINE HCL Inactive PREMARIN 0.625 MG TABS TAKE 1 TAB BY MOUTH DAILY 07/25 PREMARIN 0.625 MG TABS ESTROGENS CONJUGATED Inactive CHERATUSSIN AC 100-10 MG/5ML SYRP 1 tsp by mouth every 4 hours as needed for cough CHERATUSSIN AC 100-10 MG/5ML SYRP 837899 GUAIFENESIN-CODEINE Inactive PROMETHAZINE-CODEINE 6.25-10 MG/5ML SYRP 1 tsp by mout h every 6 hours if needed for cough PROMETHAZINE-CODEINE 6.25-10 MG/5ML SYRP 088024 PROMETHAZINE-CODEINE Inactive CHERATUSSIN AC 100-10 MG/5ML SYRP 1 tsp by mouth every 4 hours as needed for cough CHERATUSSIN AC 100-10 MG/5ML SYRP 422357 GUAIFENESIN-CODEINE Inactive FLUTICASONE PROPIONATE 50 MCG/ACT SUSP 1 to 2 sprays each no stril daily FLUTICASONE PROPIONATE 50 MCG/ACT SUSP 465858 FLUTICASONE PROPIONATE Inactive ZITHROMAX Z-REYNA 250 MG TABS 2 today, then 1 daily for 4 days 201 04/09/17 ZITHROMAX Z-REYNA 250 MG TABS 0377415 AZITHROMYCIN Inac tive CEFDINIR 300 MG CAPS [...] q days 2-5 ZITHROMAX 250 MG TAB 8497151 AZITHROMYCIN Inactive CEFDINIR 300 MG CAPS by mouth twice a day CEFDINIR 300 MG CAPS 973232 CEFDINIR Inactive PREDNISONE 20 MG TAB 2 tabs daily for 3 days, 1 t ab daily for 3 days, 1/2 tab daily for 2 days PREDNISONE 20 MG TAB 048640 PREDNISON E Inactive AVELOX 400 MG TABS 1 tab by mouth daily A VELOX 400 MG TABS 203260 MOXIFLOXACIN HCL Inactive AVELOX 400 MG TABS 1 tab by mouth daily A VELOX 400 MG TABS 631206 MOXIFLOXACIN HCL Inactive PREDNISONE 20 MG TAB Take 3 tabs daily for 3 days , 2 tabs daily for 3 days, 1 tab daily for 3 days, 1/2 tab daily for 3 days PREDNISONE 20 MG TAB 659505 PREDNISONE Inactive LEVAQUIN 500 MG TABS take one po QD LEVAQUIN 50 0 MG TABS 824595 LEVOFLOXACIN Inactive AZITHROMYCIN 250 MG TABS 2 po qd x 1 day, then 1 po qd x 4 days AZITHROMYCIN 250 MG TABS 1203298 AZITHROMYCIN Inactiv e MEDROL (REYNA) 4 MG TABS 6 tabs on day 1, 5 tabs on d ay 2, 4 tabs on day 3, 3 tabs on day 4, 2 tabs on day 5, 1 tab on day 6 MEDROL (REYNA) 4 MG TABS METHYLPREDNISOLONE Inactive CHERATUSSIN AC 100-10 MG/5ML SYRP 5ml po q6hr PRN Cough CHERATUSSIN AC 100-10 MG/5ML SYRP 574979 GUAIFENESIN-CODEINE Inacti ve TRIAMCINOLONE ACETONIDE 0.1 % CREA apply three times daily prn r beatrice TRIAMCINOLONE ACETONIDE 0.1 % CREA 7722087 TRIAMCINOLONE ACETONIDE Inactive AZITHROMYCIN 250 MG TABS 2 po qd x 1 day, then 1 po qd x 4 days AZITHROMYCIN 250 MG TABS 0597134 AZITHROMYCIN Inactiv e MEDROL (REYNA) 4 MG [...] days 20 13/03/08 AMOXICILLIN 500 MG CAP 497051 AMOXICILLIN Inactive AMOXICILLIN 500 MG CAP 1 tab by mouth 3 times daily x 10 days 20 14/04/28 AMOXICILLIN 500 MG CAP 615105 AMOXICILLIN Inactive ZITHROMAX 250 MG TAB 2 po today, then 1 po q days 2-5 ZITHROMAX 250 MG TAB 4804440 AZITHROMYCIN Inactive AUGMENTIN 875-125 MG TAB 1 po BID x 10 days AUGMENTIN 875- 125 MG TAB 476636 AMOXICILLIN-POT CLAVULANATE Inactive ZITHROMAX Z-REYNA 250 MG TABS 2 today, then 1 daily for 4 days 201 08/07/20 ZITHROMAX Z-REYNA 250 MG TABS 2725062 AZITHROMYCIN Inac tive ZITHROMAX 250 MG TAB 2 po today, then 1 po q days 2-5 ZITHROMAX 250 MG TAB 2736492 AZITHROMYCIN Inactive ZITHROMAX Z-REYNA 250 MG TABS 2 today, then 1 daily for 4 days 201 08/30/03 ZITHROMAX Z-REYNA 250 MG TABS 2561076 AZITHROMYCIN Inac tive Vital Signs Date Name Value Unit Range Description blood pressure, diastolic - 8462-4 74 mm[Hg] [...] Measured Encounters Code Encounter Date Provider Facility CPT-12130 Level 3 Est. Patient 18:16:00 [employer] VEH[employer] SUPERVISOR Blaine HERNANDEZ [facility] CPT-25793 Level 3 Est. Patient 09:45:49 [employer]SEMBL[employer] SUPERVISOR Carlton rich MD [facility] CPT-27060 Level 3 Est. Patient 13:19:20 CDT Carlton rich MD [facility] CPT-79821 Level 3 Est. Patient 13:06:43 CDT Ridge tam DO [facility] CPT-81949 Level 3 Est. Patient 10:03:07 CDT Perez Mora MD [facility] [place]-[facility]851 Level 3 Est. Patient 19:50:35 [employer]SEMBLY SUPERVISOR Carlton rich MD [facility] CPT-61316 Level 4 Est. 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 Patient 10:45:55 MOT[employer] VEHICLE ASSEMBLY SUPERVISOR Hugo Restrepo MD [facility] CPT-20621 Level 3 Est. Patient 14:12:49 CDT Griffin HERNANDEZ [facility] CPT-41732 Level 3 Est. Patient 17:37:24 CDT Carlton rich MD [facility] CPT-37250 Level 3 Est. Patient 16:51:54 CDT Carlton rich MD [facility] CPT-56098 Level 3 Est. Patient 12:18:11 CDT Hugo Restrepo MD [facility] CPT-75310 Level 3 Est. Patient 11:30:25 CDT Marcy crisostomo MD PhD [facility] CPT-32593 Level 3 Est. Patient 12:00:47 MOT[employer]SEMBLY SUPERVISOR Carlton rich MD [facility] CPT-78449 Level 3 Est. Patient 16:31:06 MOT[employer] VEH[employer]LE ASSEMBLY SUPERVISOR Carlton rich MD [facility] CPT-45656 Level 3 Est. 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 Patient 12:34:12 CDT Carlton rich MD [facility] CPT-63417 Level 2 Est. Patient 15:43:33 CDT Robi armstrong MD [facility] CPT-45722 Level 4 Est. Patient 14:04:44 CDT Carlton rich MD [facility] CPT-73066 Level 3 Est. Patient 05:47:59 CDT Ridge tam DO [facility] CPT-82236 Level 3 Est. Patient 13:12:53 MOT[employer]SEMBL[employer] SUPERVISOR Carlton rich MD [facility] CPT-93287 Level 3 Est. Patient 14:26:53 CDT Hugo Restrepo MD [facility] Procedures Code Procedure Name Date Entry Date Standard Desc ription CPT-39559 Hip bilat min 2V w AP pelvis 13:16:20 CDT 2 CPT-49709 Pelvis only 13:07:33 CDT CPT-60205 Spec Collection and Handling Fee 11:25:12 C DT CPT-69306 Fluzone Quadrivalent Intramuscular Suspe nsion 0.5 ML 14:31:55 CDT CPT-42713 Abx/Therapy Injection 13:28:47 [employer] SUPERVISOR CPT-J2930 Solu Medrol 125 mg (Methyl Prednisolone Sodium Succinate) 12:00:47 [employer] VEH[employer]SEMBLY SUPERVISOR CPT-88396 Venipuncture Draw Fee 11:33:31 CDT CPT-61871 EKG Trac and Interp 11:21:09 CDT CPT-92168 Chest 2V Frontal and Lat 11:21:09 CDT 12/15 CPT-75113 Venipuncture Draw Fee 08:02:34 CDT CPT-90683 Chest 2V Frontal and Lat 05:47:59 CDT 06/05
--- OUTSIDE RECORDS SUMMARY | 2019-10-08 08:21 | XMS REPORT | Clinical Summary ---
Author Author Caitlin, Juliana Martinez Organization [facility] Address Unknown Phone Unavailable Allergies, Adverse Reactions, [...] 461.9 Active Elise SERRANO Acute sinusitis, unspecified Angina pectoris 413.9 Active [...] Generic Name ND Status Provider Patient Instruction ASPIRIN 81 MG ORAL TABLET 1 po qd ASPIRIN [id number] Active Carlton Hu MD Active PREDNISONE 20 MG ORAL TABLET 1 tab twice daily for 3 d ay, then one daily for three days PREDNISONE 77066824417 No Longer Active Carlton Hu MD Active AUGMENTIN 875-125 MG ORAL TABLET 1 po BID x 10 days 20 16/03/22 AMOXICILLIN-POT CLAVULANATE 49019271839 No Longer Active Elise Whitmore APRN Active TERBINAFINE HCL 250 MG ORAL TABLET 1 qDay for nail fungus 7 TERBINAFINE HCL 75430274731 No Longer Active Carlton Hu MD A ctive TUSSIONEX PENNKINETIC ER 10-8 MG/5ML ORAL SUSPENSION E XTENDED RELEASE 5ml po q12hr PRN Cough HYDROCOD POLST-CHLORPHEN POLST 48461904900 Active Carlton Hu MD Active AMOXICILLIN 500 MG ORAL CAPSULE 1 cap by mouth three times a day AMOXICILLIN 48291033496 No Longer Active Carlton Hu MD Active ELMIRON 100 MG ORAL CAPSULE 2 tablets in the am and 1 tablet at hs PENTOSAN POLYSULFATE SODIUM 25686856203 No Longer Active Robert Hu MD Active MUCINEX D 60-600 MG ORAL TABLET EXTENDED RELEASE 12 HOUR 1 t ab po q am PSEUDOEPHEDRINE-GUAIFENESIN 06934228559 No Longer Act nael Carlton Hu MD Active MUCINEX DM MAXIMUM STRENGTH 60-1200 MG ORAL TABLET EXT ENDED RELEASE 12 HOUR 1 tab po q am DEXTROMETHORPHAN-GUAIFENESIN 89580209839 No Longer Active Carlton Hu MD Active TUSSIONEX PENNKINETIC ER 10-8 MG/5ML ORAL SUSPENSION E XTENDED RELEASE 5ml po q12hr PRN Cough HYDROCOD POLST-CHLORPHEN POLST 5 2132173918 No Longer Active Carlton Hu MD Active POTASSIUM CHLORIDE ER 20 MEQ ORAL TABLET EXTENDED RELE ASE Take 1 by mouth 4 times daily for 7 days POTASSIUM CHLORIDE 60066651507 No Longer Active Carlton Hu MD Active ZITHROMAX 250 MG ORAL TABLET 2 po today, then 1 po q days 2-5 20 14/09/04 AZITHROMYCIN 67377555059 No Longer Active Elise Whitmore APRN Active TUSSIONEX PENNKINETIC ER 10-8 MG/5ML ORAL SUSPENSION E XTENDED RELEASE 5 ml twice a day as needed for cough HYDROCOD POLST-CHLORPH EN POLST 81507962202 No Longer Active Elise Whitmore APRN Active MONTELUKAST SODIUM 10 MG ORAL TABLET 1 po daily for Allergy MONTELUKAST SODIUM 32083448243 Active Carlton Hu MD Ac tive TUSSIONEX PENNKINETIC ER 10-8 MG/5ML ORAL SUSPENSION E XTENDED RELEASE 5ml po q12hr PRN Cough HYDROCOD POLST-CHLORPHEN POLST 5 1602553343 No Longer Active Hugo Restrepo MD Active GABAPENTIN 100 MG ORAL CAPSULE 1 po BID for fibromyalgia GABAPENTIN 66129738857 Active Carlton Hu MD Active LYRICA 100 MG ORAL CAPSULE Take 1 tab po BID for fibromyalgia 20 11/08/21 PREGABALIN 83957581222 No Longer Active Elise Whitmore APRN Active PROAIR HFA 108 (90 Base) MCG/ACT INHALATION AEROSOL SO LUTION 2 puffs four times a day as needed ALBUTEROL SULFATE 65214102802 Active Lyndsay Whitmore APRN Active PREDNISONE 20 MG ORAL TABLET 2 tabs daily for 3 days, 1 tab daily for 3 days, 1/2 tab daily for 2 days PREDNISONE 03309293542 No Longer Active Jillina Ggee KHAN Active TUSSIONEX PENNKINETIC ER 10-8 MG/5ML ORAL SUSPENSION E XTENDED RELEASE 5 mL PO q 12 hrs PRN cough HYDROCOD POLST-CHLORPHEN POLST 653341 88292 No Longer Active Jillina Frazell UPHOLSTERY TECH Active FLUTICASONE PROPIONATE 50 MCG/ACT NASAL SUSPENSION 2 s prays each nostril daily until bottle is empty FLUTICASONE PROPIONATE 442058960 99 No Longer Active Jillina Frazell UPHOLSTERY TECH Active ASMANEX 60 METERED DOSES 220 MCG/INH INHALATION AEROSO L POWDER BREATH ACTIVATED 1 puff bid with rinse after MOMETASONE FUROATE 9851175 4102 No Longer Active Astridina Gege UPHOLSTERY TECH Active ZITHROMAX Z-REYNA 250 MG ORAL TABLET 2 today, then 1 daily for 4 d ays AZITHROMYCIN 85097030244 No Longer Active Elise Whitmore APRN Active TUSSIONEX PENNKINETIC ER 10-8 MG/5ML ORAL SUSPENSION E XTENDED RELEASE 5ml po q12hr PRN Cough HYDROCOD POLST-CHLORPHEN POLST 5 6436836379 No Longer Active Elise Whitmore APRN Active PREDNISONE 20 MG ORAL TABLET 2 tabs daily for 3 days, 1 tab daily for 3 days, 1/2 tab daily for 2 days PREDNISONE 12327160467 No Longer Active Diya Guerrerol UPHOLSTERY TECH Active AMOXICILLIN 500 MG ORAL CAPSULE 2 po BID x 10 days 201 09/29/08 AMOXICILLIN 91319605006 No Longer Active Diya De Guzman APRN Act nael SINGULAIR 10 MG ORAL TABLET 1 po qday for allergies 20 14/01/12 MONTELUKAST SODIUM 13711417462 No Longer Active Carlton Hu MD Active LEVAQUIN 500 MG ORAL TABLET 1 tablet by mouth daily 20 13/09/24 LEVOFLOXACIN 10608683221 No Longer Active Carlton Hu MD Acti ve FLUTICASONE PROPIONATE 50 MCG/ACT NASAL SUSPENSION 2 s prays each nostril daily for 2 weeks, then 1 spray each nostril daily. FLUTICASONE PROPIONATE 31837801340 Active Elise Whitmore APRN Active ZITHROMAX 250 MG ORAL TABLET 2 po today, then 1 po q days 2-5 20 13/08/10 AZITHROMYCIN 06148253844 No Longer Active Elise Whitmore APRN Active XANAX 0.5 MG ORAL TABLET one tablet by mouth daily prn anxiety 2015 ALPRAZOLAM 97329925170 Active Carlton Hu MD Active CYMBALTA 30 MG ORAL CAPSULE DELAYED RELEASE PARTICLES 1 cap by mouth daily for depression DULOXETINE HCL 08931762780 Active Carlton beltrán MD Active CEFDINIR 300 MG ORAL CAPSULE 1 po BID x 10 days CEFDINIR 89125354298 No Longer Active Carlton Hu MD Active ZOCOR 40 MG ORAL TABLET 1 tab by mouth daily SI MVASTATIN 43935986982 No Longer Active Carlton Hu MD Active CYCLOBENZAPRINE HCL 10 MG ORAL TABLET 1 tablet by mouth BID prn had pain CYCLOBENZAPRINE HCL 68343175411 No Longer Active Jayden Hu MD Active LEVOFLOXACIN 500 MG ORAL TABLET 1 tab PO daily x 10 days LEVOFLOXACIN 38249474624 No Longer Active Carlton Hu MD Acti ve PREDNISONE 20 MG ORAL TABLET 3 tab PO qd x 2d, 2 tab P O qd x 2d, 1 tab PO qd x 2d, 1/2 tab PO qd x 2d PREDNISONE 71763247391 No Lo nger Active Carlton Hu MD Active FLUTICASONE PROPIONATE 50 MCG/ACT NASAL SUSPENSION 1 t o 2 sprays each nostril daily FLUTICASONE PROPIONATE 52266865191 No Longer Ac tive Blaine HERNANDEZ Active CHERATUSSIN AC 100-10 MG/5ML ORAL SYRUP 1 tsp by mouth every 4 hours as needed for cough GUAIFENESIN-CODEINE 33436560316 No Longe r Active Blaine HERNANDEZ Active PROMETHAZINE-CODEINE 6.25-10 MG/5ML ORAL SYRUP 1 tsp b y mouth every 6 hours if needed for cough PROMETHAZINE-CODEINE 22040250416 No Longer Active Blaine HERNANDEZ Active CHERATUSSIN AC 100-10 MG/5ML ORAL SYRUP 1 tsp by mouth every 4 hours as needed for cough GUAIFENESIN-CODEINE 40147172123 No Longe r Active Blaine HERNANDEZ Active ZITHROMAX Z-REYNA 250 MG ORAL TABLET 2 today, then 1 daily for 4 d ays AZITHROMYCIN 43677696119 No Longer Active Columba Raida Act nael ZITHROMAX 250 MG ORAL TABLET 2 po today, then 1 po q days 2-5 20 14/03/21 AZITHROMYCIN 48611050876 No Longer Active Carlton Hu MD Active ZITHROMAX Z-REYNA 250 MG ORAL TABLET 2 today, then 1 daily for 4 d ays AZITHROMYCIN 17839309455 No Longer Active Columba Raida Act nael AUGMENTIN 875-125 MG ORAL TABLET 1 po BID x 10 days 13/01/20 AMOXICILLIN-POT CLAVULANATE 14016122070 No Longer Active Diya De Guzman APRN Active ZITHROMAX 250 MG ORAL TABLET 2 po today, then 1 po q days 2-5 20 12/08/14 AZITHROMYCIN 85667147824 No Longer Active Carlton Hu MD Active TRAMADOL HCL 50 MG ORAL TABLET 1 po tid with ES Tylenol TRAMADOL HCL 19897570792 Active Carlton Hu MD Active PREMARIN 0.625 MG ORAL TABLET TAKE 1 TAB BY MOUTH DAILY ESTROGENS CONJUGATED 43621288443 No Longer Active Ridge Bess DO A ctive CYMBALTA 30 MG ORAL CAPSULE DELAYED RELEASE PARTICLES 1 cap by mouth daily DULOXETINE HCL 87242621861 No Longer Active Ridge tam DO Active AMOXICILLIN 500 MG ORAL CAPSULE 1 tab by mouth 3 times daily x 10 days AMOXICILLIN 56475457918 No Longer Active Carlton bustamante MD Active AMOXICILLIN 500 MG ORAL CAPSULE 1 tab by mouth 3 times daily x 10 days AMOXICILLIN 84079358281 No Longer Active Carlton bustamante MD Active PROMETHAZINE-CODEINE 6.25-10 MG/5ML ORAL SYRUP 1 tsp b y mouth every 8 hours prn cough PROMETHAZINE-CODEINE 41147573233 No Longer Acti ve Carlton Hu MD Active MEDROL 4 MG ORAL TABLET THERAPY PACK 6 pills x 1 day, then 5 pills x 1 day then 4 pills x 1 day, then 3 pills x 1 day, then 2 pills x 1 day, then 1 pill x 1 day, then stop METHYLPREDNISOLONE 60991955340 No Long er Active Perez Mora MD Active AZITHROMYCIN 250 MG ORAL TABLET 2 po qd x 1 day, then 1 po q d x 4 days AZITHROMYCIN 14563430874 No Longer Active Perez Ambriz MD Active SYMBICORT 160-4.5 MCG/ACT INHALATION AEROSOL 2 puffs bid wit h rinse after BUDESONIDE-FORMOTEROL FUMARATE 45209381527 N o Longer Active Perez Mora MD Active LYRICA 75 MG ORAL CAPSULE TAKE 1 CAPSULE BY MOUTH TWICE DAILY PREGABALIN 36672499441 No Longer Active Carlton Hu MD Acti ve TOPAMAX 25 MG ORAL TABLET 1 qHS x 1 week, then 1 BID x 1 week, then 1 qAM and 2 qHS x 1 week, then 2 BID (migraine prevention) T OPIRAMATE 19962644469 No Longer Active Jerica FUENTES Active TOPAMAX 50 MG ORAL TABLET take 1 tab po BID for migraines. 07/02 TOPIRAMATE 49820273292 No Longer Active Jericacatrachita FUENTES Active TOPAMAX 100 MG ORAL TABLET Take 1 tablet po bid TO PIRAMATE 94264617743 Active Carlton Hu MD Active TRIAMCINOLONE ACETONIDE 0.1 % EXTERNAL CREAM apply three roger es daily prn rash TRIAMCINOLONE ACETONIDE 71216567040 No Longer Active Carlton Hu MD Active PAXIL 40 MG ORAL TABLET take 1 tab po qday for depression 0 PAROXETINE HCL 28643214694 Active Carlton Hu MD Active CHERATUSSIN AC 100-10 MG/5ML ORAL SYRUP 5ml po q6hr PRN Cough 20 13/04/14 GUAIFENESIN-CODEINE 63416632877 No Longer Active Carlton Hu MD Active MEDROL 4 MG ORAL TABLET THERAPY PACK 6 tabs on day 1, 5 tabs on day 2, 4 tabs on day 3, 3 tabs on day 4, 2 tabs on day 5, 1 tab on day 6 2013 METHYLPREDNISOLONE 49161261608 No Longer Active Perez Mora MD Active AZITHROMYCIN 250 MG ORAL TABLET 2 po qd x 1 day, then 1 po q d x 4 days AZITHROMYCIN 81895793766 No Longer Active Perez Ambriz MD Active PROPRANOLOL HCL 60 MG ORAL TABLET 1 PO Q D PROPRANOLOL HCL 60803654833 No Longer Active Perez Mora MD Activ e CHERATUSSIN AC 100-10 MG/5ML ORAL SYRUP take one tsp po Q 6h ours prn cough GUAIFENESIN-CODEINE 70609312749 No Longer Active Zia Mora MD Active AUGMENTIN 875-125 MG ORAL TABLET 1 tab by mouth twice daily with food AMOXICILLIN-POT CLAVULANATE 83866639741 No Longer Act nael Perez Mora MD Active CHERATUSSIN AC 100-10 MG/5ML ORAL SYRUP 1 tsp by mouth every 4 hours as needed for cough GUAIFENESIN-CODEINE 41686978720 No Longe r Active Hugo Restrepo MD Active ACETAMINOPHEN-CODEINE #3 300-30 MG ORAL TABLET 1 PO Q 4-6 HRS PA N PAIN ACETAMINOPHEN-CODEINE 41404179214 No Longer Active Hugo Restrepo MD Active LEVAQUIN 500 MG ORAL TABLET take one po QD LEVO FLOXACIN 31394903662 No Longer Active Griffin HERNANDEZ Active PREDNISONE 20 MG ORAL TABLET Take 3 tabs daily for 3 d ays, 2 tabs daily for 3 days, 1 tab daily for 3 days, 1/2 tab daily for 3 days 11/07 PREDNISONE 09471786868 No Longer Active Carlton Hu MD Acti ve AVELOX 400 MG ORAL TABLET 1 tab by mouth daily MOXIFLOXACIN HCL 23793868675 No Longer Active Carlton Hu MD Active CHERATUSSIN AC 100-10 MG/5ML ORAL SYRUP 1 tsp by mouth every 4 hours as needed for cough GUAIFENESIN-CODEINE 21700460893 No Longe r Active Hugo Restrepo MD Active AVELOX 400 MG ORAL TABLET 1 tab by mouth daily MOXIFLOXACIN HCL 44471254314 No Longer Active Marcy De La Rosa MD PhD Active TERBINAFINE HCL 250 MG ORAL TABLET 1 qDay T ERBINAFINE HCL 36376167890 No Longer Active Marcy De La Rosa MD PhD Active CHERATUSSIN AC 100-10 MG/5ML ORAL SYRUP 1 tsp by mouth every 4 hours as needed for cough GUAIFENESIN-CODEINE 47277702623 No Longe r Active Marcy De La Rosa MD PhD Active AVELOX 400 MG ORAL TABLET 1 tab by mouth daily MOXIFLOXACIN HCL 42118794213 No Longer Active Marcy De La Rosa MD PhD Active HYDROCODONE-ACETAMINOPHEN 5-325 MG ORAL TABLET 1 po q 6hr PRN co ugh HYDROCODONE-ACETAMINOPHEN 92236984057 No Longer Active Marcy De La Rosa MD PhD Active PREDNISONE 20 MG ORAL TABLET 2 tabs daily for 3 days, 1 tab daily for 3 days, 1/2 tab daily for 2 days PREDNISONE 11968489275 No Longer Active Carlton Hu MD Active CEFDINIR 300 MG ORAL CAPSULE by mouth twice a day 2011 CEFDINIR 36716190403 No Longer Active Carlton Hu MD Acti ve HYDROCHLOROTHIAZIDE 25 MG ORAL TABLET 1 TAB PO DAILY HYDROCHLOROTHIAZIDE 76794672707 Active Carlton Hu MD A ctive ACETAMINOPHEN-CODEINE #3 300-30 MG ORAL TABLET 1 tablet po q 4-6 hrs prn pain ACETAMINOPHEN-CODEINE 99374785608 No Longer Active Ridge Bess DO Active ZITHROMAX 250 MG ORAL TABLET 2 po today, then 1 po q days 2-5 20 03/07/07 AZITHROMYCIN 80889238317 No Longer Active Carlton Hu MD Active CHERATUSSIN AC 100-10 MG/5ML ORAL SYRUP take 1 tsp po q4-6 h ours prn cough GUAIFENESIN-CODEINE 55808659312 No Longer Active Jayden Hu MD Active ACETAMINOPHEN-CODEINE #3 300-30 MG ORAL TABLET 1 PO Q 4-6 HR PRN PAIN ACETAMINOPHEN-CODEINE 93718279825 No Longer Active Da raimundo Hu MD Active LORTAB 7.5-500 MG/15ML ORAL ELIXIR 7.5 ml po q 4 hour prn cough HYDROCODONE-ACETAMINOPHEN 86541319992 No Longer Active Carlton Hu MD Active PREDNISONE 20 MG ORAL TABLET 1 po bid 3 days, then 1 po q day 3 days PREDNISONE 22660454732 No Longer Active Carlton Hu MD Active CEFDINIR 300 MG ORAL CAPSULE by mouth twice a day 2011 CEFDINIR 35123022715 No Longer Active Carlton Hu MD Acti ve CEFDINIR 300 MG ORAL CAPSULE by mouth twice a day 2010 CEFDINIR 53316764092 No Longer Active Carlton Hu MD Acti ve CEFDINIR 300 MG ORAL CAPSULE by mouth twice a day 2010 CEFDINIR 76711729407 No Longer Active Carlton Hu MD Acti ve TESSALON PERLES 100 MG ORAL CAPSULE 1 tablet by mouth 3 times daily as needed for cough BENZONATATE 90637007918 No Longer Active Carlton Hu MD Active CEFDINIR 300 MG ORAL CAPSULE by mouth twice a day 2010 CEFDINIR 82058685155 No Longer Active Carlton Hu MD Acti ve ZITHROMAX Z-REYNA 250 MG ORAL TABLET 2 today, then 1 daily for 4 d ays AZITHROMYCIN 53154444936 No Longer Active Hugo Restrepo MD Active TESSALON PERLES 100 MG ORAL CAPSULE 1 tablet by mouth 3 times daily as needed for cough TESSALON PERLES 100 MG ORAL CAPSULE 17437 7 BENZONATATE Inactive PREDNISONE 20 MG ORAL TABLET 1 po bid 3 days, then 1 po q day 3 days PREDNISONE 20 MG ORAL TABLET 716700 PREDNISONE Greer ctive LORTAB 7.5-500 MG/15ML ORAL [...] cough CHERATUSSIN AC 100-10 MG/5ML ORAL SYRUP 590472 GUAIFENESIN-CODEINE Inactive ACETAMINOPHEN-CODEINE #3 300-30 MG ORAL TABLET 1 tablet po q 4-6 hrs prn pain ACETAMINOPHEN-CODEINE #3 300-30 MG ORAL TABLET ACETAMINOPHEN-CODEINE Inactive HYDROCODONE-ACETAMINOPHEN 5-325 MG ORAL TABLET 1 po q 6hr PRN co ugh HYDROCODONE-ACETAMINOPHEN 5-325 MG ORAL TABLET 243898 HYDROCODONE-ACETAMINOPHEN Inactive AVELOX 400 MG ORAL TABLET 1 tab by mouth daily AVELOX 400 MG ORAL TABLET 798747 MOXIFLOXACIN HCL Inactive CHERATUSSIN AC 100-10 MG/5ML ORAL SYRUP 1 tsp by mouth every 4 hours as needed for cough CHERATUSSIN AC 100-10 MG/5ML ORAL SYRUP 9 37331 GUAIFENESIN-CODEINE Inactive TERBINAFINE HCL 250 MG ORAL TABLET 1 qDay 07/08 TERBINAFINE HCL 250 MG ORAL TABLET 880145 TERBINAFINE HCL Inactive CHERATUSSIN AC 100-10 MG/5ML ORAL SYRUP 1 tsp by mouth every 4 hours as needed for cough CHERATUSSIN AC 100-10 MG/5ML ORAL SYRUP 9 10621 GUAIFENESIN-CODEINE Inactive ACETAMINOPHEN-CODEINE #3 300-30 MG ORAL TABLET 1 PO Q 4-6 HRS PA N PAIN ACETAMINOPHEN-CODEINE #3 300-30 MG ORAL TABLET ACETAMINOPHEN-CODEINE Inactive CHERATUSSIN AC 100-10 MG/5ML ORAL SYRUP 1 tsp by mouth every 4 hours as needed for cough CHERATUSSIN AC 100-10 MG/5ML ORAL SYRUP 9 32655 GUAIFENESIN-CODEINE Inactive AUGMENTIN 875-125 MG ORAL TABLET 1 tab by mouth twice daily with food AUGMENTIN 875-125 MG ORAL TABLET 686494 AMOXICIL MADELINE-POT CLAVULANATE Inactive CHERATUSSIN AC 100-10 MG/5ML ORAL SYRUP take one tsp po Q 6h ours prn cough CHERATUSSIN AC 100-10 MG/5ML ORAL SYRUP 323962 GUAIFENESIN-CODEINE Inactive PROPRANOLOL HCL 60 MG ORAL TABLET 1 PO Q D PROPRANOLOL HCL 60 MG ORAL TABLET 530220 PROPRANOLOL HCL Inactive TOPAMAX 50 MG ORAL TABLET take 1 tab po BID for migraines. 07/02 TOPAMAX 50 MG ORAL TABLET 253701 TOPIRAMATE Inacti ve TOPAMAX 25 MG ORAL TABLET 1 qHS x 1 week, then 1 BID x 1 week, then 1 qAM and 2 qHS x 1 week, then 2 BID (migraine prevention) TOPAMAX 25 MG ORAL TABLET 391062 TOPIRAMATE Inactive LYRICA 75 MG ORAL CAPSULE TAKE 1 CAPSULE BY MOUTH TWICE DAILY LYRICA 75 MG ORAL CAPSULE PREGABALIN Inactive SYMBICORT 160-4.5 MCG/ACT INHALATION AEROSOL 2 puffs bid wit h rinse after SYMBICORT 160-4.5 MCG/ACT INHALATION AEROSOL BUDESONIDE- FORMOTEROL FUMARATE Inactive PROMETHAZINE-CODEINE 6.25-10 MG/5ML ORAL SYRUP 1 tsp b y mouth every 8 hours prn cough PROMETHAZINE-CODEINE 6.25-10 MG/ 5ML ORAL SYRUP 946783 PROMETHAZINE-CODEINE Inactive CYMBALTA 30 MG ORAL CAPSULE DELAYED RELEASE PARTICLES 1 cap by mouth daily CYMBALTA 30 MG ORAL CAPSULE DELAYED RELE ASE PARTICLES 630957 DULOXETINE HCL Inactive PREMARIN 0.625 MG ORAL TABLET TAKE 1 TAB BY MOUTH DAILY PREMARIN 0.625 MG ORAL TABLET ESTROGENS CONJUGATED Inactive CHERATUSSIN AC 100-10 MG/5ML ORAL SYRUP 1 tsp by mouth every 4 hours as needed for cough CHERATUSSIN AC 100-10 MG/5ML ORAL SYRUP 9 35172 GUAIFENESIN-CODEINE Inactive PROMETHAZINE-CODEINE 6.25-10 MG/5ML ORAL SYRUP 1 tsp b y mouth every 6 hours if needed for cough PROMETHAZINE-CODEINE 6.25-10 MG/5ML ORAL SYRUP 220128 PROMETHAZINE-CODEINE Inactive CHERATUSSIN AC 100-10 MG/5ML ORAL SYRUP 1 tsp by mouth every 4 hours as needed for cough CHERATUSSIN AC 100-10 MG/5ML ORAL SYRUP 9 05009 GUAIFENESIN-CODEINE Inactive FLUTICASONE PROPIONATE 50 MCG/ACT NASAL SUSPENSION 1 t o 2 sprays each nostril daily FLUTICASONE PROPIONATE 50 MCG/AC T NASAL SUSPENSION 8677446 FLUTICASONE PROPIONATE Inactive PREDNISONE 20 MG ORAL TABLET 3 tab PO qd x 2d, 2 tab P O qd x 2d, 1 tab PO qd x 2d, 1/2 tab PO qd x 2d PREDNISONE 20 MG ORAL TAB LET 009080 PREDNISONE Inactive LEVOFLOXACIN 500 MG ORAL TABLET 1 tab PO daily x 10 days LEVOFLOXACIN 500 MG ORAL TABLET 494170 LEVOFLOXACIN Inactive CYCLOBENZAPRINE HCL 10 MG ORAL TABLET 1 tablet by mouth BID prn had pain CYCLOBENZAPRINE HCL 10 MG ORAL TABLET 684507 CYCLOBENZAPRINE HCL Inactive ZOCOR 40 MG ORAL TABLET 1 tab by mouth daily 4 ZOCOR 40 MG ORAL TABLET 781101 SIMVASTATIN Inactive TUSSIONEX PENNKINETIC ER 10-8 MG/5ML [...] FLUTICASONE PROPIO EFE 50 MCG/ACT NASAL SUSPENSION 1499615 FLUTICASONE PROPIONATE Inactive TUSSIONEX PENNKINETIC ER 10-8 [...] three days PREDNISONE 20 MG ORAL TABLET 375757 PREDNIS ONE Inactive ZITHROMAX Z-REYNA 250 MG ORAL TABLET 2 today, then 1 daily for 4 d ays ZITHROMAX Z-REYNA 250 MG ORAL TABLET 587015 AZITHROMYCIN Inactive CEFDINIR 300 MG ORAL CAPSULE [...] 20 03/07/07 ZITHROMAX 250 MG ORAL TABLET 342358 AZITHROMYCIN Greer ctive CEFDINIR 300 MG ORAL CAPSULE by mouth twice a day 2011 CEFDINIR 300 MG ORAL CAPSULE 662226 CEFDINIR Inactive PREDNISONE 20 MG ORAL TABLET 2 tabs daily for 3 days, 1 tab daily for 3 days, 1/2 tab daily for 2 days PREDNISONE 20 MG ORAL T ABLET 066301 PREDNISONE Inactive AVELOX 400 MG ORAL TABLET 1 tab by mouth daily AVELOX 400 MG ORAL TABLET 312847 MOXIFLOXACIN HCL Inactive AVELOX 400 MG ORAL TABLET 1 tab by mouth daily AVELOX 400 MG ORAL TABLET 166396 MOXIFLOXACIN HCL Inactive PREDNISONE 20 MG ORAL TABLET Take 3 tabs daily for 3 d ays, 2 tabs daily for 3 days, 1 tab daily for 3 days, 1/2 tab daily for 3 days 11/07 PREDNISONE 20 MG ORAL TABLET 166887 PREDNISONE Inactive LEVAQUIN 500 MG ORAL TABLET take one po QD LEVAQUIN 500 MG ORAL TABLET 382796 LEVOFLOXACIN Inactive AZITHROMYCIN 250 MG ORAL TABLET 2 po qd x 1 day, then 1 po q d x 4 days AZITHROMYCIN 250 MG ORAL TABLET 532173 AZITHROMY GIOVANNI Inactive MEDROL 4 MG ORAL TABLET THERAPY PACK 6 tabs on day 1, 5 tabs on day 2, 4 tabs on day 3, 3 tabs on day 4, 2 tabs on day 5, 1 tab on day 6 2013 MEDROL 4 MG ORAL TABLET THERAPY PACK 037291 METHYLPREDNISOLONE Greer ctive CHERATUSSIN AC 100-10 MG/5ML ORAL SYRUP 5ml po q6hr PRN Cough 20 13/04/14 CHERATUSSIN AC 100-10 MG/5ML ORAL SYRUP 627208 GUAIFENE SIN-CODEINE Inactive TRIAMCINOLONE ACETONIDE 0.1 % EXTERNAL CREAM apply three roger es daily prn rash TRIAMCINOLONE ACETONIDE 0.1 % EXTERNAL CREAM 101 4314 TRIAMCINOLONE ACETONIDE Inactive AZITHROMYCIN 250 MG ORAL TABLET 2 po qd x 1 day, then 1 po q d x 4 days AZITHROMYCIN 250 MG ORAL TABLET 065974 AZITHROMY GIOVANNI Inactive MEDROL 4 MG ORAL TABLET THERAPY PACK 6 pills x 1 day, then 5 pills x 1 day then 4 pills x 1 day, then 3 pills x 1 day, then 2 pills x 1 day, then 1 pill x 1 day, then stop MEDROL 4 MG ORAL TABLET THERAPY PACK 149232 METHYLPREDNISOLONE Inactive AMOXICILLIN 500 MG ORAL CAPSULE 1 tab by mouth 3 times daily x 10 days AMOXICILLIN 500 MG ORAL CAPSULE 556814 AMOXICILL IN Inactive AMOXICILLIN 500 MG ORAL CAPSULE 1 tab by mouth 3 times daily x 10 days AMOXICILLIN 500 MG ORAL CAPSULE 910742 AMOXICILL IN Inactive ZITHROMAX 250 MG ORAL TABLET 2 po today, then 1 po q days 2-5 20 12/08/14 ZITHROMAX 250 MG ORAL TABLET 665073 AZITHROMYCIN Greer ctive AUGMENTIN 875-125 MG ORAL TABLET 1 po BID x 10 days 20 13/01/20 AUGMENTIN 875-125 MG ORAL TABLET 167142 AMOXICILLIN-POT CLAVULANATE Inactive ZITHROMAX Z-REYNA 250 MG ORAL TABLET 2 today, then 1 daily for 4 d ays ZITHROMAX Z-REYNA 250 MG ORAL TABLET 655791 AZITHROMYCIN Inactive ZITHROMAX 250 MG ORAL TABLET 2 po today, then 1 po q days 2-5 20 14/03/21 ZITHROMAX 250 MG ORAL TABLET 793745 AZITHROMYCIN [place] ctive ZITHROMAX Z-REYNA 250 MG ORAL TABLET 2 today, then 1 daily for 4 d ays ZITHROMAX Z-REYNA 250 MG ORAL TABLET 020226 AZITHROMYCIN Inactive CEFDINIR 300 MG ORAL CAPSULE 1 po BID x 10 days 06/21 CEFDINIR 300 MG ORAL CAPSULE 717324 CEFDINIR Inactive ZITHROMAX 250 MG ORAL TABLET 2 po today, then 1 po q days 2-5 20 13/08/10 ZITHROMAX 250 MG ORAL TABLET 141823 AZITHROMYCIN [place] ctive LEVAQUIN 500 MG ORAL TABLET 1 tablet by mouth daily 13/09/24 LEVAQUIN 500 MG ORAL TABLET 116265 LEVOFLOXACIN Inactive SINGULAIR 10 MG ORAL TABLET 1 po qday for allergies 20 14/01/12 SINGULAIR 10 MG ORAL TABLET 371941 MONTELUKAST SODIUM Inactive AMOXICILLIN 500 MG ORAL CAPSULE 2 po BID x 10 days 201 09/29/08 AMOXICILLIN 500 MG ORAL CAPSULE 873808 AMOXICILLIN Inactive PREDNISONE 20 MG ORAL TABLET 2 tabs daily for 3 days, 1 tab daily for 3 days, 1/2 tab daily for 2 days PREDNISONE 20 MG ORAL T ABLET 390850 PREDNISONE Inactive ZITHROMAX Z-REYNA 250 MG ORAL TABLET 2 today, then 1 daily for 4 d ays ZITHROMAX Z-REYNA 250 MG ORAL TABLET 648914 AZITHROMYCIN Inactive PREDNISONE 20 MG ORAL TABLET 2 tabs daily for 3 days, 1 tab daily for 3 days, 1/2 tab daily for 2 days PREDNISONE 20 MG ORAL T ABLET 190952 PREDNISONE Inactive ZITHROMAX 250 MG ORAL TABLET 2 po today, then 1 po q days 2-5 20 14/09/04 ZITHROMAX 250 MG ORAL TABLET 966394 AZITHROMYCIN [place] ctive AMOXICILLIN 500 MG ORAL CAPSULE 1 cap by mouth three times a day AMOXICILLIN 500 MG ORAL CAPSULE 354835 AMOXICILLIN Inactive TERBINAFINE HCL 250 MG ORAL TABLET 1 qDay for nail fungus 7 TERBINAFINE HCL 250 MG ORAL TABLET 520267 TERBINAFINE HCL Inact nael AUGMENTIN 875-125 MG ORAL TABLET 1 po BID x 10 days 16/03/22 AUGMENTIN 875-125 MG ORAL TABLET 656453 AMOXICILLIN-POT CLAVULANATE Inactive Vital Signs Date Name Value Unit Range Description blood pressure, diastolic 73 mm[Hg] BP srinivasan [...] - Chem istry sodium, serum 132 mmol/L 829-871 8739/07/12 potassium, serum 2.7 mmol/L 3.5-5.2 chloride, serum 93 mmol/L 98-107 carbon dioxide, venous blood 30.8 mmol/L 21.0-32 .0 blood glucose 107 mg/dL 65-110 calcium, serum 9.3 mg/dL 8.5-10.1 urea nitrogen, blood 12 mg/dL 7-18 creatinine, serum 1.00 mg/dL 0.60-1.30 sodium, serum 142 mmol/L 765-512 3113/07/17 potassium, serum 4.2 mmol/L 3.5-5.2 chloride, serum 106 mmol/L 98-107 carbon dioxide, venous blood 29.9 mmol/L 21.0-32 .0 blood glucose 108 mg/dL 65-110 calcium, serum 9.1 mg/dL 8.5-10.1 urea nitrogen, blood 11 mg/dL 7-18 creatinine, serum 0.81 mg/dL 0.60-1.30 Lab Report: Rapid Strep - Lab Microbial identification kit, rapid strep method Negative Negative Encounters Code Encounter Date Provider Facility [id number] Level 4 Est. 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 [facility]-13423 Level 3 Est. Patient 10:26:00 PRINCIPAL SOFTWARE ARCHITECT Italo [facility] [place]-32142 Level 3 Est. Patient 13:35:41 PRINCIPAL SOFTWARE ARCHITECT Carlton rich MD [facility]-55772 Level 3 Est. Patient 10:03:52 PRINCIPAL SOFTWARE ARCHITECT Carlton rich MD [facility]-81705 Level 3 Est. Patient 12:17:50 CDT Hugo Restrepo MD [facility]-95071 Level 3 Est. Patient 13:42:[address] [facility] [place]-40260 Level 3 Est. Patient 13:23:51 CDT Diya cobian [facility] [place]-41765 Level 3 Est. Patient 14:22:19 PRINCIPAL SOFTWARE ARCHITECT Diya cobian [facility] [place]-26012 Level 3 Est. Patient 10:11:46 CDT Carlton rich MD [facility]-23500 Level 3 Est. Patient 17:29:[address] [facility] [place]-46015 Level 3 Est. Patient 11:58:[address] [facility] [place]-68302 Level 4 Est. Patient 14:36:51 CDT Carlton rich MD [facility]-82359 Level 3 Est. Patient 18:16:00 PRINCIPAL SOFTWARE ARCHITECT Blaine Freeman [facility] [[email or web address] CPT-15855 Level 3 Est. Patient 09:45:49 PRINCIPAL SOFTWARE ARCHITECT Carlton rich MD [facility] CPT-53029 Level 3 Est. Patient 13:19:20 CDT Carlton rich MD [facility] CPT-81163 Level 3 Est. Patient 13:06:43 CDT Ridge tam DO [facility] CPT-81044 Level 3 Est. Patient 10:03:07 CDT Perez Mora MD [facility] CPT-72539 Level 3 Est. Patient 19:50:35 PRINCIPAL SOFTWARE ARCHITECT Carlton rich MD [facility]-96853 Level 4 Est. Patient 18:05:01 PRINCIPAL SOFTWARE ARCHITECT Carlton rich MD [facility] CPT-68979 Level 3 Est. Patient 10:45:55 PRINCIPAL SOFTWARE ARCHITECT Hugo Restrepo MD [facility] CPT-48142 Level 3 Est. Patient 14:12:49 CDT Griffin lincoln [facility] CPT-82683 Level 3 Est. Patient 17:37:24 CDT Carlton rich MD [facility] CPT-79130 Level 3 Est. Patient 16:51:54 CDT Carlton rich MD [facility] CPT-50562 Level 3 Est. Patient 12:18:11 CDT Hugo Restrepo MD [facility] CPT-77197 Level 3 Est. Patient 11:30:25 CDT Marcy crisostomo MD PhD [facility]-56616 Level 3 Est. Patient 12:00:47 PRINCIPAL SOFTWARE ARCHITECT Carlton rich MD [facility] CPT-71505 Level 3 Est. Patient 16:31:06 PRINCIPAL SOFTWARE ARCHITECT Carlton rich MD [facility] CPT-54968 Level 3 Est. Patient 16:23:24 PRINCIPAL SOFTWARE ARCHITECT Ridge tam [facility] CPT-08714 Level 3 Est. Patient 12:34:12 CDT Carlton rich MD [facility] CPT-47430 Level 2 Est. Patient 15:43:33 CDT Robi armstrong MD [facility] CPT-39427 Level 4 Est. Patient 14:04:44 CDT Carlton rich MD [facility] CPT-57626 Level 3 Est. Patient 05:47:59 CDT Ridge tam [facility] CPT-47039 Level 3 Est. Patient 13:12:53 PRINCIPAL SOFTWARE ARCHITECT Carlton rich MD [facility] CPT-22613 Level 3 Est. Patient 14:26:53 CDT Hugo Restrepo MD [facility] Procedures Code Procedure Name Date Entry Date Standard Desc ription CPT-J1040 Depo Medrol 80 mg (Methyl Prednisolone A cetate) 10:42:44 CDT CPT-J1100 Decadron 8mg (Dexamethasone) 10:42:44 CDT 2 CPT-J0696 Rocephin 1gm Inj Solr 14:32:13 CDT CPT-J1020 Depo Medrol 60 mg (Methyl Prednisolone A cetate) 14:32:13 CDT CPT-J1100 Decadron 6mg (Dexamethasone) 14:32:13 CDT 2 CPT-84906 Hip bilat min 2V w AP pelvis 13:16:20 CDT 2 CPT-10755 Pelvis only 13:07:33 CDT CPT-27465 Spec Collection and Handling Fee 11:25:12 C DT CPT-26736 Fluzone Quadrivalent Intramuscular Suspe nsion 0.5 ML 14:31:55 CDT CPT-04077 Abx/Therapy Injection 13:28:47 PRINCIPAL SOFTWARE ARCHITECT CPT-J2930 Solu Medrol 125 mg (Methyl Prednisolone Sodium Succinate) 12:00:47 PRINCIPAL SOFTWARE ARCHITECT CPT-02689 Venipuncture Draw Fee 11:33:31 CDT CPT-81540 EKG Trac and Interp 11:21:09 CDT CPT-25218 Chest 2V Frontal and Lat 11:21:09 CDT 12/15 CPT-18567 Venipuncture Draw Fee 08:02:34 CDT CPT-10627 Chest 2V Frontal and Lat 05:47:59 CDT 06/05
--- OUTSIDE RECORDS SUMMARY | 2019-10-08 08:21 | XMS REPORT | Clinical Summary ---
Author Author Caitlin, Juliana Martinez Organization [employer] [facility] Address Unknown Phone Unavailable Allergies, Adverse [...] sites Sinusitis 473.9 Active Diya De Guzman [employer] SALESPERSON Unspecified sinusitis (chronic) Bronchitis-Acute 466.0 Active Carlton Hu MD Acute bronchitis URI - acute 465.9 Active Elise Whitmore [employer] SALESPERSON Acute upper respiratory infections of unspecified site Pharyngitis acute 462 Active Elise Whitmore A PRN Acute pharyngitis Rhinitis, acute 460 Active Elise Whitmore APR N Acute nasopharyngitis [common cold] Sinusitis 473.9 Active Diya De Guzman [employer] SALESPERSON Unspecified sinusitis (chronic) Bronchitis 490 Active Diya De Guzman [employer] SALESPERSON Bronchitis, not specified as acute or chronic MAXILLARY SINUSITIS ICD-473.0 Inactive Marcy De La Rosa MD PhD BRONCHITIS, ACUTE WITH MILD BRONCHOSPASM ICD-466.0 Inactive Marcy De La Rosa MD PhD DYSPNEA ICD-786.05 Inactive Marcy De La Rosa MD P hD HEALTH SCREENING ICD-V70.0 Inactive Marcy ya MD PhD CHEST WALL PAIN, ACUTE ICD-786.52 Inactive Liv De La Roas MD PhD PNEUMONIA ICD-486 Inactive Marcy De La Rosa MD PhD 201 06/01/09 SINUSITIS ICD-473.9 Inactive Marcy De La Rosa MD Ph D CONTACT DERMATITIS ICD-692.9 Inactive Marcy crisostomo MD PhD SINUSITIS, ACUTE ICD-461.9 Inactive Hugo dominguez MD BRONCHITIS ICD-490 Inactive Hugo Restrepo MD 201 04/09/17 Medication List Medication Instructions Start Date Stop Date Generic Name NDC Status Provider Patient Instruction GABAPENTIN 100 MG CAPS 1 po BID for fibromyalgia GABAPENTIN [id number] Active Elise Whitmore [employer] SALESPERSON Active LYRICA 100 MG CAPS Take 1 tab po BID for fibromyalgia PREGABALIN 45468284981 No Longer Active Elise Whitmore [employer] SALESPERSON Acti ve PROAIR HFA 108 (90 BASE) MCG/ACT AERS 2 puffs four times a d ay as needed ALBUTEROL SULFATE 63837727926 Active Jillina Gege APR N Active MUCINEX DM MAXIMUM STRENGTH 60-1200 MG [id number] 1 tab po q am 2016 DEXTROMETHORPHAN-GUAIFENESIN 40944831431 Active Venullina Frakerriel [employer] SALESPERSON Active TUSSIONEX PENNKINETIC ER 10-8 MG/5ML LQCR 5ml po q12hr PRN Cough 20 14/06/21 HYDROCOD POLST-CHLORPHEN POLST 91033790571 Active Carlton Hu MD Active PREDNISONE 20 MG TAB 2 tabs daily for 3 days, 1 t ab daily for 3 days, 1/2 tab daily for 2 days PREDNISONE 84754868286 No Longer Active Jillina Cesarl [employer] SALESPERSON Active TUSSIONEX PENNKINETIC ER 10-8 MG/5ML ORAL LQCR 5 mL PO q 12 hrs PRN cough HYDROCOD POLST-CHLORPHEN POLST 15823468088 No Longer Active Jillina Frazell [employer] SALESPERSON Active FLUTICASONE PROPIONATE 50 MCG/ACT SUSP 2 sprays each n ostril daily until bottle is empty FLUTICASONE PROPIONATE 54388853867 No Longer Ac tive Jillina Frazell [employer] SALESPERSON Active ASMANEX 60 METERED DOSES 220 MCG/INH AEPB 1 puff bid with ri nse after MOMETASONE FUROATE 10744266978 No Longer Active Venullina Darlin meneses [employer] SALESPERSON Active ZITHROMAX Z-REYNA 250 MG TABS 2 today, then 1 daily for 4 days 201 09/29/14 AZITHROMYCIN 52175424040 No Longer Active Elisedeirdre Whitmore APRN Active TUSSIONEX PENNKINETIC ER 10-8 MG/5ML LQCR 5ml po q12hr PRN Cough HYDROCOD POLST-CHLORPHEN POLST 07220613664 No Longer Active Elisedeirdre Whitmore APRN Active MUCINEX D 60-600 MG [id number] 1 tab po q am PSEUDOEPHEDRINE-GUAIFENESIN 41279188123 Active Jillina Frazell [employer] SALESPERSON Active PREDNISONE 20 MG TAB 2 tabs daily for 3 days, 1 t ab daily for 3 days, 1/2 tab daily for 2 days PREDNISONE 88513601326 No Longer Active Jillina Frazell [employer] SALESPERSON Active AMOXICILLIN 500 MG CAPS 2 po BID x 10 days AMOX ICILLIN 69879643607 No Longer Active Jillina Frazell [employer] SALESPERSON Active SINGULAIR 10 MG TABS 1 po qday for allergies 2 MONTELUKAST SODIUM 06528868628 No Longer Active Carlton Hu MD Acti ve LEVAQUIN 500 MG TAB 1 tablet by mouth daily LEV OFLOXACIN 33694292535 No Longer Active Carlton Hu MD Active FLUTICASONE PROPIONATE 50 MCG/ACT SUSP 2 sprays each n ostril daily for 2 weeks, then 1 spray each nostril daily. FLUTICASONE PRO PIONATE 16698550587 Active Elise Whitmore APRN Active ZITHROMAX 250 MG TAB 2 po today, then 1 po q days 2-5 AZITHROMYCIN 19338501593 No Longer Active Elise Whitmore APRN Acti ve XANAX 0.5 MG TABS one tablet by mouth daily prn anxiety ALPRAZOLAM 46735193833 Active Elise Whitmore APRN Active CYMBALTA 30 MG CPEP 1 cap by mouth daily for depression DULOXETINE HCL 73954902658 Active Carlton Hu MD Active CEFDINIR 300 MG CAPS 1 po BID x 10 days CEFDINI R 60884058332 No Longer Active Carlton Hu MD Active ZOCOR 40 MG TAB 1 tab by mouth daily SIMVASTATI N 38354452956 No Longer Active Carlton Hu MD Active CYCLOBENZAPRINE HCL 10 MG TABS 1 tablet by mouth BID prn had cherelle n CYCLOBENZAPRINE HCL 52636153196 No Longer Active Carlton Hu MD Active LEVOFLOXACIN 500 MG ORAL TABS 1 tab PO daily x 10 days LEVOFLOXACIN 65206212888 No Longer Active Carlton Hu MD Acti ve PREDNISONE 20 MG ORAL TABS 3 tab PO qd x 2d, 2 tab PO qd x 2d, 1 tab PO qd x 2d, 1/2 tab PO qd x 2d PREDNISONE 97117689667 No Longer Active Carlton Hu MD Active FLUTICASONE PROPIONATE 50 MCG/ACT SUSP 1 to 2 sprays each no stril daily FLUTICASONE PROPIONATE 67496395038 No Longer Active T jaz HERNANDEZ Active CHERATUSSIN AC 100-10 MG/5ML SYRP 1 tsp by mouth every 4 hours as needed for cough GUAIFENESIN-CODEINE 42808798883 No Longer Activ e Blaine HERNANDEZ Active PROMETHAZINE-CODEINE 6.25-10 MG/5ML SYRP 1 tsp by mout h every 6 hours if needed for cough PROMETHAZINE-CODEINE 67402433786 No Long er Active Blaine HERNANDEZ Active CHERATUSSIN AC 100-10 MG/5ML SYRP 1 tsp by mouth every 4 hours as needed for cough GUAIFENESIN-CODEINE 38443073962 No Longer Activ e Blaine HERNANDEZ Active ZITHROMAX Z-REYNA 250 MG TABS 2 today, then 1 daily for 4 days 201 08/30/03 AZITHROMYCIN 09432402261 No Longer Active Columba Raida Act nael ZITHROMAX 250 MG TAB 2 po today, then 1 po q days 2-5 AZITHROMYCIN 75978376782 No Longer Active Carlton Hu MD Acti ve ZITHROMAX Z-REYNA 250 MG TABS 2 today, then 1 daily for 4 days 201 08/07/20 AZITHROMYCIN 55469818115 No Longer Active Columba Raida Act nael AUGMENTIN 875-125 MG TAB 1 po BID x 10 days AMOXICILLIN- POT CLAVULANATE 77472592835 No Longer Active Diya De Guzman APRN Active ZITHROMAX 250 MG TAB 2 po today, then 1 po q days 2-5 AZITHROMYCIN 58643224405 No Longer Active Carlton Hu MD Acti ve TRAMADOL HCL 50 MG TABS 1 po tid with ES Tylenol TRAMADOL HCL 41069539449 Active Carlton Hu MD Active PREMARIN 0.625 MG TABS TAKE 1 TAB BY MOUTH DAILY 07/25 ESTROGENS CONJUGATED 49934277890 No Longer Active Ridge Bess DO Active CYMBALTA 30 MG CPEP 1 cap by mouth daily DULOXE SNEHA HCL 78835063427 No Longer Active Ridge Bess DO Active AMOXICILLIN 500 MG CAP 1 tab by mouth 3 times daily x 10 days 20 14/04/28 AMOXICILLIN 99118904785 No Longer Active Carlton Hu MD Active AMOXICILLIN 500 MG CAP 1 tab by mouth 3 times daily x 10 days 20 13/03/08 AMOXICILLIN 15388414418 No Longer Active Carlton Hu MD Active PROMETHAZINE-CODEINE 6.25-10 MG/5ML SYRP 1 tsp by mouth ever y 8 hours prn cough PROMETHAZINE-CODEINE 29660429728 No Longer Active Robert Hu MD Active MEDROL (REYNA) 4 MG TABS 6 pills x 1 day, then 5 pill s x 1 day then 4 pills x 1 day, then 3 pills x 1 day, then 2 pills x 1 day, then 1 pill x 1 day, then stop METHYLPREDNISOLONE 56790838328 No Longer Active Parris Mora MD Active AZITHROMYCIN 250 MG TABS 2 po qd x 1 day, then 1 po qd x 4 days AZITHROMYCIN 94318539678 No Longer Active Perez Mora MD Active SYMBICORT 160-4.5 MCG/ACT AERO 2 puffs bid with rinse after 2011 BUDESONIDE-FORMOTEROL FUMARATE 10967633680 No Longer Active Perez Mora MD Active LYRICA 75 MG CAPS TAKE 1 CAPSULE BY MOUTH TWICE DAILY 2013 PREGABALIN 86817756309 No Longer Active Carlton Hu MD Active TOPAMAX 25 MG TABS 1 qHS x 1 week, then 1 BID x 1 week, then 1 qAM and 2 qHS x 1 week, then 2 BID (migraine prevention) TOPIRAMAT E 65569952941 No Longer Active Jerica FUENTES Active TOPAMAX 50 MG TABS take 1 tab po BID for migraines. 12/07/10 TOPIRAMATE 69712816502 No Longer Active Jerica AGUILARA Ac tive TOPAMAX 100 MG TABS Take 1 tablet po bid TOPIRAMATE 4999 1462557 Active Elise Whitmore APRN Active TRIAMCINOLONE ACETONIDE 0.1 % CREA apply three times daily prn r beatrice TRIAMCINOLONE ACETONIDE 36745426314 No Longer Active Carlton Hu MD Active PAXIL 40 MG TAB take 1 tab po qday for depression PAROXETINE HCL 85880962374 Active Elise Whitmore APRN Active CHERATUSSIN AC 100-10 MG/5ML SYRP 5ml po q6hr PRN Cough GUAIFENESIN-CODEINE 95618186384 No Longer Active Carlton Hu MD Active MEDROL (REYNA) 4 MG TABS 6 tabs on day 1, 5 tabs on d ay 2, 4 tabs on day 3, 3 tabs on day 4, 2 tabs on day 5, 1 tab on day 6 METHYLPREDNISOLONE 24118384929 No Longer Active Perez Mora MD Active AZITHROMYCIN 250 MG TABS 2 po qd x 1 day, then 1 po qd x 4 days AZITHROMYCIN 46028845413 No Longer Active Perez Mora MD Active PROPRANOLOL HCL 60 MG TABS 1 PO Q D PROPRANOL OL HCL 06991156784 No Longer Active Perez Mora MD Active CHERATUSSIN AC 100-10 MG/5ML SYRP take one tsp po Q 6hours prn c ough GUAIFENESIN-CODEINE 96212296737 No Longer Active Perez Means Active AUGMENTIN 875-125 MG TAB 1 tab by mouth twice daily with food 20 12/03/31 AMOXICILLIN-POT CLAVULANATE 97118492264 No Longer Active Chanel Mora MD Active CHERATUSSIN AC 100-10 MG/5ML SYRP 1 tsp by mouth every 4 hours as needed for cough GUAIFENESIN-CODEINE 76261040137 No Longer Activ e Hugo Restrepo MD Active ACETAMINOPHEN-CODEINE #3 300-30 MG TABS 1 PO Q 4-6 HRS PRN PAIN ACETAMINOPHEN-CODEINE 71327828265 No Longer Active Hugo Restrepo MD Active LEVAQUIN 500 MG TABS take one po QD LEVOFLOXACI N 11092476383 No Longer Active Griffin HERNANDEZ Active PREDNISONE 20 MG TAB Take 3 tabs daily for 3 days , 2 tabs daily for 3 days, 1 tab daily for 3 days, 1/2 tab daily for 3 days P REDNISONE 76313170354 No Longer Active Carlton Hu MD Active AVELOX 400 MG TABS 1 tab by mouth daily MOXIFLO XACIN HCL 50145834792 No Longer Active Carlton Hu MD Active CHERATUSSIN AC 100-10 MG/5ML SYRP 1 tsp by mouth every 4 hours as needed for cough GUAIFENESIN-CODEINE 49029014026 No Longer Activ e Hugo Restrepo MD Active AVELOX 400 MG TABS 1 tab by mouth daily MOXIFLO XACIN HCL 10951491671 No Longer Active Marcy De La Rsoa MD PhD Active TERBINAFINE HCL 250 MG TABS 1 qDay TERBINAF INE HCL 03081082728 No Longer Active Marcy De La Rosa MD PhD Active CHERATUSSIN AC 100-10 MG/5ML SYRP 1 tsp by mouth every 4 hours as needed for cough GUAIFENESIN-CODEINE 68527814100 No Longer Activ e Marcy De La Rosa MD PhD Active AVELOX 400 MG TABS 1 tab by mouth daily MOXIFLO XACIN HCL 64346729595 No Longer Active Marcy De La Rosa MD PhD Active HYDROCODONE-ACETAMINOPHEN 5-325 MG TABS 1 po q 6hr PRN cough 201 05/09/16 HYDROCODONE-ACETAMINOPHEN 90651960559 No Longer Active Marcy De La Rosa MD PhD Active PREDNISONE 20 MG TAB 2 tabs daily for 3 days, 1 t ab daily for 3 days, 1/2 tab daily for 2 days PREDNISONE 83062528610 No Longer Active Carlton Hu MD Active CEFDINIR 300 MG CAPS by mouth twice a day CEFDI ODILIA 86996738127 No Longer Active Carlton Hu MD Active HYDROCHLOROTHIAZIDE 25 MG TABS 1 TAB PO DAILY H YDROCHLOROTHIAZIDE 11253285322 Active Carlton Hu MD Active ACETAMINOPHEN-CODEINE #3 300-30 MG TABS 1 tablet po q 4-6hrs prn pain ACETAMINOPHEN-CODEINE 41801036040 No Longer Active Ridge Bess DO Active ZITHROMAX 250 MG TAB 2 po today, then 1 po q days 2-5 AZITHROMYCIN 38546560768 No Longer Active Carlton Hu MD Acti ve CHERATUSSIN AC 100-10 MG/5ML SYRP take 1 tsp po q4-6 hours prn c ough GUAIFENESIN-CODEINE 51845864124 No Longer Active Carlton Hu MD Active ACETAMINOPHEN-CODEINE #3 300-30 MG TABS 1 PO Q 4-6 HR PRN PAIN 2 ACETAMINOPHEN-CODEINE 45284721043 No Longer Active Carlton rich MD Active LORTAB 7.5-500 MG/15ML ELIX 7.5 ml po q 4 hour prn cough HYDROCODONE-ACETAMINOPHEN 59810953168 No Longer Active Carlton Hu MD Active PREDNISONE 20 MG TAB 1 po bid 3 days, then 1 po q day 3 days 201 05/03/07 PREDNISONE 35597416068 No Longer Active Carlton Hu MD Active ELMIRON 100 MG CAPS 2 tablets in the am and 1 tablet at hs PENTOSAN POLYSULFATE SODIUM 60267912061 Active Carlton Hu MD Ac tive CEFDINIR 300 MG CAPS by mouth twice a day CEFDI ODILIA 96771995486 No Longer Active Carlton Hu MD Active CEFDINIR 300 MG CAPS by mouth twice a day CEFDI ODILIA 01180065524 No Longer Active Carlton Hu MD Active CEFDINIR 300 MG CAPS by mouth twice a day CEFDI ODILIA 92215288534 No Longer Active Carlton Hu MD Active TESSALON PERLES 100 MG CAP 1 tablet by mouth 3 times daily a s needed for cough BENZONATATE 92968525977 No Longer Active Carlton bustamante MD Active CEFDINIR 300 MG CAPS by mouth twice a day CEFDI ODILIA 87225992372 No Longer Active Carlton Hu MD Active ZITHROMAX Z-REYNA 250 MG TABS 2 today, then 1 daily for 4 days 201 04/09/17 AZITHROMYCIN 85354521616 No Longer Active Hugo Restrepo MD Active TESSALON PERLES 100 MG CAP 1 tablet by mouth 3 times daily a s needed for cough TESSALON PERLES 100 MG CAP 730728 BENZONATATE I nactive PREDNISONE 20 MG TAB 1 po bid 3 days, then 1 po q day 3 days 201 05/03/07 PREDNISONE 20 MG TAB 914007 PREDNISONE Inactive LORTAB 7.5-500 MG/15ML ELIX 7.5 ml po q 4 hour prn cough LORTAB 7.5-500 MG/15ML ELIX HYDROCODONE-ACETAMINOPHEN Inacti ve ACETAMINOPHEN-CODEINE #3 300-30 MG TABS 1 PO Q 4-6 HR PRN PAIN 2 ACETAMINOPHEN-CODEINE #3 300-30 MG TABS ACETAMIN OPHEN-CODEINE Inactive CHERATUSSIN AC 100-10 MG/5ML SYRP take 1 tsp po q4-6 hours prn c ough CHERATUSSIN AC 100-10 MG/5ML SYRP 537992 GUAIFENESIN-CO DEINE Inactive ACETAMINOPHEN-CODEINE #3 300-30 MG TABS 1 tablet po q 4-6hrs prn pain ACETAMINOPHEN-CODEINE #3 300-30 MG TABS ACETAMIN OPHEN-CODEINE Inactive HYDROCODONE-ACETAMINOPHEN 5-325 MG TABS 1 po q 6hr PRN cough 201 05/09/16 HYDROCODONE-ACETAMINOPHEN 5-325 MG TABS 731512 HYDROCODONE-ACETAMINOPHEN Inactive AVELOX 400 MG TABS 1 tab by mouth daily A VELOX 400 MG TABS 899869 MOXIFLOXACIN HCL Inactive CHERATUSSIN AC 100-10 MG/5ML SYRP 1 tsp by mouth every 4 hours as needed for cough CHERATUSSIN AC 100-10 MG/5ML SYRP 963845 GUAIFENESIN-CODEINE Inactive TERBINAFINE HCL 250 MG TABS 1 qDay TERBINAFINE HCL 250 MG TABS 716369 TERBINAFINE HCL Inactive CHERATUSSIN AC 100-10 MG/5ML SYRP 1 tsp by mouth every 4 hours as needed for cough CHERATUSSIN AC 100-10 MG/5ML SYRP 987190 GUAIFENESIN-CODEINE Inactive ACETAMINOPHEN-CODEINE #3 300-30 MG TABS 1 PO Q 4-6 HRS PRN PAIN ACETAMINOPHEN-CODEINE #3 300-30 MG TABS ACETAMINOPHEN-CODEIN E Inactive CHERATUSSIN AC 100-10 MG/5ML SYRP 1 tsp by mouth every 4 hours as needed for cough CHERATUSSIN AC 100-10 MG/5ML SYRP 184440 GUAIFENESIN-CODEINE Inactive AUGMENTIN 875-125 MG TAB 1 tab by mouth twice daily with food 20 12/03/31 AUGMENTIN 875-125 MG TAB 690141 AMOXICILLIN-POT CLAVULA EFE Inactive CHERATUSSIN AC 100-10 MG/5ML SYRP take one tsp po Q 6hours prn c ough CHERATUSSIN AC 100-10 MG/5ML SYRP 714422 GUAIFENESIN-CO DEINE Inactive PROPRANOLOL HCL 60 MG TABS 1 PO Q D P ROPRANOLOL HCL 60 MG TABS 255296 PROPRANOLOL HCL Inactive TOPAMAX 50 MG TABS take 1 tab po BID for migraines. 12/07/10 TOPAMAX 50 MG TABS 766551 TOPIRAMATE Inactive TOPAMAX 25 MG TABS 1 qHS x 1 week, then 1 BID x 1 week, then 1 qAM and 2 qHS x 1 week, then 2 BID (migraine prevention) TOPAMAX 2 5 MG TABS 209900 TOPIRAMATE Inactive LYRICA 75 MG CAPS TAKE 1 CAPSULE BY MOUTH TWICE DAILY LYRICA 75 MG CAPS PREGABALIN Inactive SYMBICORT 160-4.5 MCG/ACT AERO 2 puffs bid with rinse after 2011 SYMBICORT 160-4.5 MCG/ACT AERO BUDESONIDE-FORMOT SÁNCHEZ FUMARATE Inactive PROMETHAZINE-CODEINE 6.25-10 MG/5ML SYRP 1 tsp by mouth ever y 8 hours prn cough PROMETHAZINE-CODEINE 6.25-10 MG/5ML SYRP 440595 PROMETHAZINE-CODEINE Inactive CYMBALTA 30 MG CPEP 1 cap by mouth daily CYMBALTA 30 MG CPEP 010620 DULOXETINE HCL Inactive PREMARIN 0.625 MG TABS TAKE 1 TAB BY MOUTH DAILY 07/25 PREMARIN 0.625 MG TABS ESTROGENS CONJUGATED Inactive CHERATUSSIN AC 100-10 MG/5ML SYRP 1 tsp by mouth every 4 hours as needed for cough CHERATUSSIN AC 100-10 MG/5ML SYRP 993238 GUAIFENESIN-CODEINE Inactive PROMETHAZINE-CODEINE 6.25-10 MG/5ML SYRP 1 tsp by mout h every 6 hours if needed for cough PROMETHAZINE-CODEINE 6.25-10 MG/5ML SYRP 779448 PROMETHAZINE-CODEINE Inactive CHERATUSSIN AC 100-10 MG/5ML SYRP 1 tsp by mouth every 4 hours as needed for cough CHERATUSSIN AC 100-10 MG/5ML SYRP 049283 GUAIFENESIN-CODEINE Inactive FLUTICASONE PROPIONATE 50 MCG/ACT SUSP 1 to 2 sprays each no stril daily FLUTICASONE PROPIONATE 50 MCG/ACT SUSP 0284895 FLUTICASONE PROPIONATE Inactive PREDNISONE 20 MG ORAL TABS 3 tab PO qd x 2d, 2 tab PO qd x 2d, 1 tab PO qd x 2d, 1/2 tab PO qd x 2d PREDNISONE 20 MG ORAL TABS 057492 PREDNISONE Inactive LEVOFLOXACIN 500 MG ORAL TABS 1 tab PO daily x 10 days LEVOFLOXACIN 500 MG ORAL TABS 017061 LEVOFLOXACIN Inactive CYCLOBENZAPRINE HCL 10 MG TABS 1 tablet by mouth BID prn had cherelle n CYCLOBENZAPRINE HCL 10 MG TABS 902730 CYCLOBENZAPRINE H CL Inactive ZOCOR 40 MG TAB 1 tab by mouth daily ZOCOR 40 M G TAB 512378 SIMVASTATIN Inactive TUSSIONEX PENNKINETIC ER 10-8 MG/5ML [...] empty FLUTICASONE PROPIONATE 50 MCG/ACT SUSP 17 78017 FLUTICASONE PROPIONATE Inactive TUSSIONEX PENNKINETIC ER 10-8 [...] 201 04/09/17 ZITHROMAX Z-REYNA 250 MG TABS 7698533 AZITHROMYCIN Inac tive CEFDINIR 300 MG CAPS [...] q days 2-5 ZITHROMAX 250 MG TAB 2604591 AZITHROMYCIN Inactive CEFDINIR 300 MG CAPS by mouth twice a day CEFDINIR 300 MG CAPS 844771 CEFDINIR Inactive PREDNISONE 20 MG TAB 2 tabs daily for 3 days, 1 t ab daily for 3 days, 1/2 tab daily for 2 days PREDNISONE 20 MG TAB 104012 PREDNISON E Inactive AVELOX 400 MG TABS 1 tab by mouth daily A VELOX 400 MG TABS 201097 MOXIFLOXACIN HCL Inactive AVELOX 400 MG TABS 1 tab by mouth daily A VELOX 400 MG TABS 648535 MOXIFLOXACIN HCL Inactive PREDNISONE 20 MG TAB Take 3 tabs daily for 3 days , 2 tabs daily for 3 days, 1 tab daily for 3 days, 1/2 tab daily for 3 days PREDNISONE 20 MG TAB 817976 PREDNISONE Inactive LEVAQUIN 500 MG TABS take one po QD LEVAQUIN 50 0 MG TABS 987197 LEVOFLOXACIN Inactive AZITHROMYCIN 250 MG TABS 2 po qd x 1 day, then 1 po qd x 4 days AZITHROMYCIN 250 MG TABS 0472210 AZITHROMYCIN Inactiv e MEDROL (REYNA) 4 MG TABS 6 tabs on day 1, 5 tabs on d ay 2, 4 tabs on day 3, 3 tabs on day 4, 2 tabs on day 5, 1 tab on day 6 MEDROL (REYNA) 4 MG TABS 272420 METHYLPREDNISOLONE Inactive CHERATUSSIN AC 100-10 MG/5ML SYRP 5ml po q6hr PRN Cough CHERATUSSIN AC 100-10 MG/5ML SYRP 676596 GUAIFENESIN-CODEINE Inacti ve TRIAMCINOLONE ACETONIDE 0.1 % CREA apply three times daily prn r beatrice TRIAMCINOLONE ACETONIDE 0.1 % CREA 6103886 TRIAMCINOLONE ACETONIDE Inactive AZITHROMYCIN 250 MG TABS 2 po qd x 1 day, then 1 po qd x 4 days AZITHROMYCIN 250 MG TABS 4242237 AZITHROMYCIN Inactiv e MEDROL (REYNA) 4 MG TABS 6 pills x 1 day, then 5 pill s x 1 day then 4 pills x 1 day, then 3 pills x 1 day, then 2 pills x 1 day, then 1 pill x 1 day, then stop MEDROL (REYNA) 4 MG TABS 488783 METHYLPREDNISOLONE Inactive AMOXICILLIN 500 MG CAP 1 tab by mouth 3 times daily x 10 days 20 13/03/08 AMOXICILLIN 500 MG CAP 649038 AMOXICILLIN Inactive AMOXICILLIN 500 MG CAP 1 tab by mouth 3 times daily x 10 days 20 14/04/28 AMOXICILLIN 500 MG CAP 459599 AMOXICILLIN Inactive ZITHROMAX 250 MG TAB 2 po today, then 1 po q days 2-5 ZITHROMAX 250 MG TAB 3154605 AZITHROMYCIN Inactive AUGMENTIN 875-125 MG TAB 1 po BID x 10 days AUGMENTIN 875- 125 MG TAB 926653 AMOXICILLIN-POT CLAVULANATE Inactive ZITHROMAX Z-REYNA 250 MG TABS 2 today, then 1 daily for 4 days 201 08/07/20 ZITHROMAX Z-REYNA 250 MG TABS 4705680 AZITHROMYCIN Inac tive ZITHROMAX 250 MG TAB 2 po today, then 1 po q days 2-5 ZITHROMAX 250 MG TAB 7152145 AZITHROMYCIN Inactive ZITHROMAX Z-REYNA 250 MG TABS 2 today, then 1 daily for 4 days 201 08/30/03 ZITHROMAX Z-REYNA 250 MG TABS 4602270 AZITHROMYCIN Inac tive CEFDINIR 300 MG CAPS 1 po BID x 10 days C EFDINIR 300 MG CAPS 121970 CEFDINIR Inactive ZITHROMAX 250 MG TAB 2 po today, then 1 po q days 2-5 ZITHROMAX 250 MG TAB 7135545 AZITHROMYCIN Inactive LEVAQUIN 500 MG TAB 1 tablet by mouth daily LEVAQUIN 500 MG TAB 716225 LEVOFLOXACIN Inactive SINGULAIR 10 MG TABS 1 po qday for allergies 2 SINGULAIR 10 MG TABS 20010504 MONTELUKAST SODIUM Inactive AMOXICILLIN 500 MG CAPS 2 po BID x 10 days AMOXICILLIN 500 MG CAPS 441997 AMOXICILLIN Inactive PREDNISONE 20 MG TAB 2 tabs daily for 3 days, 1 t ab daily for 3 days, 1/2 tab daily for 2 days PREDNISONE 20 MG TAB 697880 PREDNISON E Inactive ZITHROMAX Z-REYNA 250 MG TABS 2 today, then 1 daily for 4 days 201 09/29/14 ZITHROMAX Z-REYNA 250 MG TABS 7962699 AZITHROMYCIN Inac tive PREDNISONE 20 MG TAB 2 tabs daily for 3 days, 1 t ab daily for 3 days, 1/2 tab daily for 2 days PREDNISONE 20 MG TAB 718308 PREDNISON E Inactive Vital Signs Date Name [...] Measured Encounters Code Encounter Date Provider Facility CPT-77182 Level 3 Est. Patient 13:42:38 CDT Elise And chelly [facility] CPT-37885 Level 3 Est. Patient 13:23:51 CDT Diya cobian [facility] CPT-75440 Level 3 Est. Patient 14:22:19 SOCIAL WELFARE ADMINISTRATOR Diya cobian [facility] CPT-00543 Level 3 Est. Patient 10:11:46 CDT Carlton rich MD [facility] CPT-29576 Level 3 Est. Patient 17:29:43 CDT Italo [facility] CPT-53941 Level 3 Est. Patient 11:58:06 CDT Elise And [facility] CPT-62987 Level 4 Est. Patient 14:36:51 CDT Carlton rich MD [facility] CPT-61298 Level 3 Est. Patient 18:16:00 SOCIAL WELFARE ADMINISTRATOR Blaine HERNANDEZ [facility] CPT-84926 Level 3 Est. Patient 09:45:49 SOCIAL WELFARE ADMINISTRATOR Carlton rich MD [facility] CPT-91321 Level 3 Est. Patient 13:19:20 CDT Carlton rich MD [facility] [place]005 Level 3 Est. Patient 13:06:43 CDT Ridge tam DO [facility] CPT-45057 Level 3 Est. Patient 10:03:07 CDT Perez Mora MD [facility] [place]-37466 Level 3 Est. Patient 19:50:35 SOCIAL WELFARE ADMINISTRATOR Carlton rich MD [facility] [place]-13016 Level 4 Est. Patient 18:05:01 SOCIAL WELFARE ADMINISTRATOR Carlton rich MD [facility] [place]-75500 Level 3 Est. Patient 10:45:55 SOCIAL WELFARE ADMINISTRATOR Hugo Restrepo MD [facility] [place]-62334 Level 3 Est. Patient 14:12:49 CDT Griffin HERNANDEZ [facility] CPT-41277 Level 3 Est. Patient 17:37:24 CDT Carlton rich MD [facility] [place]-02215 Level 3 Est. Patient 16:51:54 CDT Carlton rich MD [facility] [place]-11176 Level 3 Est. Patient 12:18:11 CDT Hugo Restrepo MD [facility] [place]-22943 Level 3 Est. Patient 11:30:25 CDT Marcy crisostomo MD PhD [facility] [place]-81094 Level 3 Est. Patient 12:00:47 SOCIAL WELFARE ADMINISTRATOR Carlton rich MD [facility] [place]-26136 Level 3 Est. Patient 16:31:06 SOCIAL WELFARE ADMINISTRATOR Carlton rich MD [facility] [place]-[id number] Level 3 Est. Patient 16:23:24 SOCIAL WELFARE ADMINISTRATOR [facility] CPT-[id number] Level 3 Est. Patient 12:34:12 CDT Carlton rich MD [facility] CPT-49207 Level 2 Est. Patient 15:43:33 CDT Robi armstrong MD [facility] CPT-02862 Level 4 Est. Patient 14:04:44 CDT Carlton rich MD [facility] CPT-42055 Level 3 Est. Patient 05:47:59 CDT Ridge tam [facility] CPT-63846 Level 3 Est. Patient 13:12:53 SOCIAL WELFARE ADMINISTRATOR Carlton rich MD [facility] CPT-89565 Level 3 Est. Patient 14:26:53 CDT Hugo Restrepo MD [facility] Procedures Code Procedure Name Date Entry Date Standard Desc ription CPT-J0696 Rocephin 1gm Inj Solr 14:32:13 CDT CPT-J1020 Depo Medrol 60 mg (Methyl Prednisolone A cetate) 14:32:13 CDT CPT-J1100 Decadron 6mg (Dexamethasone) 14:32:13 CDT 2 CPT-05373 Hip bilat min 2V w AP pelvis 13:16:20 CDT 2 CPT-69365 Pelvis only 13:07:33 CDT CPT-86259 Spec Collection and Handling Fee 11:25:12 C DT CPT-01352 Fluzone Quadrivalent Intramuscular Suspe nsion 0.5 ML 14:31:55 CDT CPT-75147 Abx/Therapy Injection 13:28:47 SOCIAL WELFARE ADMINISTRATOR CPT-J2930 Solu Medrol 125 mg (Methyl Prednisolone Sodium Succinate) 12:00:47 SOCIAL WELFARE ADMINISTRATOR CPT-93820 Venipuncture Draw Fee 11:33:31 CDT CPT-93468 EKG Trac and Interp 11:21:09 CDT CPT-36741 Chest 2V Frontal and Lat 11:21:09 CDT 12/15 CPT-30043 Venipuncture Draw Fee 08:02:34 CDT CPT-69024 Chest 2V Frontal and Lat 05:47:59 CDT 06/05
--- OUTSIDE RECORDS SUMMARY | 2019-10-08 08:21 | XMS REPORT | Clinical Summary ---
Author Author Caitlin, Juliana Martinez Organization [facility] Address Unknown Phone Unavailable Allergies, [...] po tid with ES Tylenol TRAMADOL HCL [id number] Active Ridge Bess DO Active PREMARIN 0.625 MG TABS TAKE 1 TAB BY MOUTH DAILY 07/25 ESTROGENS CONJUGATED [id number] No Longer Active Ridge Bess DO Active CYMBALTA 30 MG CPEP 1 cap by mouth daily DULOXE SNEHA HCL 69148173441 No Longer Active Ridge Bess DO Active AMOXICILLIN 500 MG CAP 1 tab by mouth 3 times daily x 10 days 20 14/04/28 AMOXICILLIN 42211642590 No Longer Active Carlton Hu MD Active AMOXICILLIN 500 MG CAP 1 tab by mouth 3 times daily x 10 days 20 13/03/08 AMOXICILLIN 94192115061 No Longer Active Carlton Hu MD Active CHERATUSSIN AC 100-10 MG/5ML SYRP 1 tsp by mouth every 4 hours as needed for cough GUAIFENESIN-CODEINE 26006314058 Active Carlton banks MD Active CYCLOBENZAPRINE HCL 10 MG TABS 1 tablet by mouth BID prn had pain 2 CYCLOBENZAPRINE HCL 80043283985 Active Carlton Hu MD A ctive PROMETHAZINE-CODEINE 6.25-10 MG/5ML SYRP 1 tsp by mouth ever y 8 hours prn cough PROMETHAZINE-CODEINE 04905099654 No Longer Active Robert jade Hu MD Active MEDROL (REYNA) 4 MG TABS 6 pills x 1 day, then 5 pill s x 1 day then 4 pills x 1 day, then 3 pills x 1 day, then 2 pills x 1 day, then 1 pill x 1 day, then stop METHYLPREDNISOLONE 25220253468 No Longer Active Parris Mora MD Active AZITHROMYCIN 250 MG TABS 2 po qd x 1 day, then 1 po qd x 4 days AZITHROMYCIN 28004068663 No Longer Active Perez Mora MD Active SYMBICORT 160-4.5 MCG/ACT AERO 2 puffs bid with rinse after 2011 BUDESONIDE-FORMOTEROL FUMARATE 48621434178 No Longer Active Perez Mora MD Active LYRICA 75 MG CAPS TAKE 1 CAPSULE BY MOUTH TWICE DAILY 2013 PREGABALIN 01775404695 No Longer Active Carlton Hu MD Active LYRICA 100 MG CAPS Take 1 tab po BID for fibromyalgia PREGABALIN 23771037737 Active Carlton Hu MD Active TOPAMAX 25 MG TABS 1 qHS x 1 week, then 1 BID x 1 week, then 1 qAM and 2 qHS x 1 week, then 2 BID (migraine prevention) TOPIRAMAT E 86292980360 No Longer Active Jerica FUENTES Active TOPAMAX 50 MG TABS take 1 tab po BID for migraines. 12/07/10 TOPIRAMATE 31299506430 No Longer Active Jerica AGUILARA Ac tive TOPAMAX 100 MG TABS Take 1 tablet po bid TOPIRAMATE 4999 4686146 Active Carlton uH MD Active TRIAMCINOLONE ACETONIDE 0.1 % CREA apply three times daily prn r beatrice TRIAMCINOLONE ACETONIDE 32446431427 No Longer Active Carlton Hu MD Active PAXIL 40 MG TAB take 1 tab po qday for depression PAROXETINE HCL 47383818045 Active Carlton Hu MD Active CHERATUSSIN AC 100-10 MG/5ML SYRP 5ml po q6hr PRN Cough GUAIFENESIN-CODEINE 43075183923 No Longer Active Carlton Hu MD Active MEDROL (REYNA) 4 MG TABS 6 tabs on day 1, 5 tabs on d ay 2, 4 tabs on day 3, 3 tabs on day 4, 2 tabs on day 5, 1 tab on day 6 METHYLPREDNISOLONE 45132792874 No Longer Active Perez Mora MD Active AZITHROMYCIN 250 MG TABS 2 po qd x 1 day, then 1 po qd x 4 days AZITHROMYCIN 40876418023 No Longer Active Perez Mora MD Active PROPRANOLOL HCL 60 MG TABS 1 PO Q D PROPRANOL OL HCL 72844991825 No Longer Active Perez Mora MD Active CHERATUSSIN AC 100-10 MG/5ML SYRP take one tsp po Q 6hours prn c ough GUAIFENESIN-CODEINE 90491628205 No Longer Active Perez Means Active AUGMENTIN 875-125 MG TAB 1 tab by mouth twice daily with food 20 12/03/31 AMOXICILLIN-POT CLAVULANATE 04937159183 No Longer Active Chanel Mora MD Active CHERATUSSIN AC 100-10 MG/5ML SYRP 1 tsp by mouth every 4 hours as needed for cough GUAIFENESIN-CODEINE 41414804616 No Longer Activ e Hugo Restrepo MD Active ACETAMINOPHEN-CODEINE #3 300-30 MG TABS 1 PO Q 4-6 HRS PRN PAIN ACETAMINOPHEN-CODEINE 33014462106 No Longer Active Hugo Restrepo MD Active LEVAQUIN 500 MG TABS take one po QD LEVOFLOXACI N 87470338434 No Longer Active Griffin HERNANDEZ Active PREDNISONE 20 MG TAB Take 3 tabs daily for 3 days , 2 tabs daily for 3 days, 1 tab daily for 3 days, 1/2 tab daily for 3 days P REDNISONE 40552451198 No Longer Active Carlton Hu MD Active AVELOX 400 MG TABS 1 tab by mouth daily MOXIFLO XACIN HCL 64457864045 No Longer Active Carlton Hu MD Active CHERATUSSIN AC 100-10 MG/5ML SYRP 1 tsp by mouth every 4 hours as needed for cough GUAIFENESIN-CODEINE 89766077977 No Longer Activ e Hugo Restrepo MD Active AVELOX 400 MG TABS 1 tab by mouth daily MOXIFLO XACIN HCL 12466547411 No Longer Active Marcy De La Rosa MD PhD Active TERBINAFINE HCL 250 MG TABS 1 qDay TERBINAF INE HCL 98558276925 No Longer Active Marcy De La Rosa MD PhD Active CHERATUSSIN AC 100-10 MG/5ML SYRP 1 tsp by mouth every 4 hours as needed for cough GUAIFENESIN-CODEINE 83860486379 No Longer Activ e Marcy De La Rosa MD PhD Active AVELOX 400 MG TABS 1 tab by mouth daily MOXIFLO XACIN HCL 99540046249 No Longer Active Marcy De La Rosa MD PhD Active HYDROCODONE-ACETAMINOPHEN 5-325 MG TABS 1 po q 6hr PRN cough 201 05/09/16 HYDROCODONE-ACETAMINOPHEN 98162419470 No Longer Active Marcy De La Rosa MD PhD Active PREDNISONE 20 MG TAB 2 tabs daily for 3 days, 1 t ab daily for 3 days, 1/2 tab daily for 2 days PREDNISONE 37646547527 No Longer Active Carlton Hu MD Active CEFDINIR 300 MG CAPS by mouth twice a day CEFDI ODILIA 49841932337 No Longer Active Carlton Hu MD Active ZOCOR 40 MG TAB 1 tab by mouth daily SIMVASTATIN 48287968120 Active Carlton Hu MD Active HYDROCHLOROTHIAZIDE 25 MG TABS 1 TAB PO DAILY H YDROCHLOROTHIAZIDE 04913384196 Active Carlton Hu MD Active ACETAMINOPHEN-CODEINE #3 300-30 MG TABS 1 tablet po q 4-6hrs prn pain ACETAMINOPHEN-CODEINE 00771192016 No Longer Active Ridge Bess DO Active ZITHROMAX 250 MG TAB 2 po today, then 1 po q days 2-5 AZITHROMYCIN 27332892356 No Longer Active Carlton Hu MD Acti ve CHERATUSSIN AC 100-10 MG/5ML SYRP take 1 tsp po q4-6 hours prn c ough GUAIFENESIN-CODEINE 28538252777 No Longer Active Carlton Hu MD Active ACETAMINOPHEN-CODEINE #3 300-30 MG TABS 1 PO Q 4-6 HR PRN PAIN 2 ACETAMINOPHEN-CODEINE 37231170925 No Longer Active Carlton rich MD Active LORTAB 7.5-500 MG/15ML ELIX 7.5 ml po q 4 hour prn cough HYDROCODONE-ACETAMINOPHEN 39975295384 No Longer Active Carlton Hu MD Active PREDNISONE 20 MG TAB 1 po bid 3 days, then 1 po q day 3 days 201 05/03/07 PREDNISONE 15280893169 No Longer Active Carlton Hu MD Active ELMIRON 100 MG CAPS 2 tablets in the am and 1 tablet at hs PENTOSAN POLYSULFATE SODIUM 88987874343 Active Gracie Moreno Active CEFDINIR 300 MG CAPS by mouth twice a day CEFDI ODILIA 25648305437 No Longer Active Carlton Hu MD Active CEFDINIR 300 MG CAPS by mouth twice a day CEFDI ODILIA 28051837325 No Longer Active Carlton Hu MD Active CEFDINIR 300 MG CAPS by mouth twice a day CEFDI ODILIA 45949277550 No Longer Active Carlton Hu MD Active TESSALON PERLES 100 MG CAP 1 tablet by mouth 3 times daily a s needed for cough BENZONATATE 52368643277 No Longer Active Carlton bustamante MD Active CEFDINIR 300 MG CAPS by mouth twice a day CEFDI ODILIA 73228436384 No Longer Active Carlton Hu MD Active ZITHROMAX Z-REYNA 250 MG TABS 2 today, then 1 daily for 4 days 201 04/09/17 AZITHROMYCIN 76706954454 No Longer Active Hugo Restrepo MD Active TESSALON PERLES 100 MG CAP 1 tablet by mouth 3 times daily a s needed for cough TESSALON PERLES 100 MG CAP 530004 BENZONATATE I nactive PREDNISONE 20 MG TAB 1 po bid 3 days, then 1 po q day 3 days 201 05/03/07 PREDNISONE 20 MG TAB 743468 PREDNISONE Inactive LORTAB 7.5-500 MG/15ML ELIX 7.5 ml po q 4 hour prn cough LORTAB 7.5-500 MG/15ML ELIX HYDROCODONE-ACETAMINOPHEN Inacti ve ACETAMINOPHEN-CODEINE #3 300-30 MG TABS 1 PO Q 4-6 HR PRN PAIN 2 ACETAMINOPHEN-CODEINE #3 300-30 MG TABS 266625 ACETAMIN OPHEN-CODEINE Inactive CHERATUSSIN AC 100-10 MG/5ML SYRP take 1 tsp po q4-6 hours prn c ough CHERATUSSIN AC 100-10 MG/5ML SYRP 850455 GUAIFENESIN-CO DEINE Inactive ACETAMINOPHEN-CODEINE #3 300-30 MG TABS 1 tablet po q 4-6hrs prn pain ACETAMINOPHEN-CODEINE #3 300-30 MG TABS 801431 ACETAMIN OPHEN-CODEINE Inactive HYDROCODONE-ACETAMINOPHEN 5-325 MG TABS 1 po q 6hr PRN cough 201 05/09/16 HYDROCODONE-ACETAMINOPHEN 5-325 MG TABS 447967 HYDROCODONE-ACETAMINOPHEN Inactive AVELOX 400 MG TABS 1 tab by mouth daily A VELOX 400 MG TABS 929197 MOXIFLOXACIN HCL Inactive CHERATUSSIN AC 100-10 MG/5ML SYRP 1 tsp by mouth every 4 hours as needed for cough CHERATUSSIN AC 100-10 MG/5ML SYRP 276506 GUAIFENESIN-CODEINE Inactive TERBINAFINE HCL 250 MG TABS 1 qDay TERBINAFINE HCL 250 MG TABS 967529 TERBINAFINE HCL Inactive CHERATUSSIN AC 100-10 MG/5ML SYRP 1 tsp by mouth every 4 hours as needed for cough CHERATUSSIN AC 100-10 MG/5ML SYRP 985403 GUAIFENESIN-CODEINE Inactive ACETAMINOPHEN-CODEINE #3 300-30 MG TABS 1 PO Q 4-6 HRS PRN PAIN ACETAMINOPHEN-CODEINE #3 300-30 MG TABS 640830 ACETAMINOPHEN-CODEIN E Inactive CHERATUSSIN AC 100-10 MG/5ML SYRP 1 tsp by mouth every 4 hours as needed for cough CHERATUSSIN AC 100-10 MG/5ML SYRP 708580 GUAIFENESIN-CODEINE Inactive AUGMENTIN 875-125 MG TAB 1 tab by mouth twice daily with food 20 12/03/31 AUGMENTIN 875-125 MG TAB 884171 AMOXICILLIN-POT CLAVULA EFE Inactive CHERATUSSIN AC 100-10 MG/5ML SYRP take one tsp po Q 6hours prn c ough CHERATUSSIN AC 100-10 MG/5ML SYRP 072262 GUAIFENESIN-CO DEINE Inactive PROPRANOLOL HCL 60 MG TABS 1 PO Q D P ROPRANOLOL HCL 60 MG TABS 441614 PROPRANOLOL HCL Inactive TOPAMAX 50 MG TABS take 1 tab po BID for migraines. 12/07/10 TOPAMAX 50 MG TABS 450365 TOPIRAMATE Inactive TOPAMAX 25 MG TABS 1 qHS x 1 week, then 1 BID x 1 week, then 1 qAM and 2 qHS x 1 week, then 2 BID (migraine prevention) TOPAMAX 2 5 MG TABS 639349 TOPIRAMATE Inactive LYRICA 75 MG CAPS TAKE 1 CAPSULE BY MOUTH TWICE DAILY LYRICA 75 MG CAPS PREGABALIN Inactive SYMBICORT 160-4.5 MCG/ACT AERO 2 puffs bid with rinse after 2011 SYMBICORT 160-4.5 MCG/ACT AERO BUDESONIDE-FORMOT SÁNCHEZ FUMARATE Inactive PROMETHAZINE-CODEINE 6.25-10 MG/5ML SYRP 1 tsp by mouth ever y 8 hours prn cough PROMETHAZINE-CODEINE 6.25-10 MG/5ML SYRP 139616 PROMETHAZINE-CODEINE Inactive CYMBALTA 30 MG CPEP 1 cap by mouth daily CYMBALTA 30 MG CPEP 052406 DULOXETINE HCL Inactive PREMARIN 0.625 MG TABS TAKE 1 TAB BY MOUTH DAILY 07/25 PREMARIN 0.625 MG TABS ESTROGENS CONJUGATED Inactive ZITHROMAX Z-REYNA 250 MG TABS 2 today, then 1 daily for 4 days 201 04/09/17 ZITHROMAX Z-REYNA 250 MG TABS 3418710 AZITHROMYCIN Inac tive CEFDINIR 300 MG CAPS [...] q days 2-5 ZITHROMAX 250 MG TAB 9761312 AZITHROMYCIN Inactive CEFDINIR 300 MG CAPS by mouth twice a day CEFDINIR 300 MG CAPS 20020704 CEFDINIR Inactive PREDNISONE 20 MG TAB 2 tabs daily for 3 days, 1 t ab daily for 3 days, 1/2 tab daily for 2 days PREDNISONE 20 MG TAB 190851 PREDNISON E Inactive AVELOX 400 MG TABS 1 tab by mouth daily A VELOX 400 MG TABS 530656 MOXIFLOXACIN HCL Inactive AVELOX 400 MG TABS 1 tab by mouth daily A VELOX 400 MG TABS 267220 MOXIFLOXACIN HCL Inactive PREDNISONE 20 MG TAB Take 3 tabs daily for 3 days , 2 tabs daily for 3 days, 1 tab daily for 3 days, 1/2 tab daily for 3 days PREDNISONE 20 MG TAB 197729 PREDNISONE Inactive LEVAQUIN 500 MG TABS take one po QD LEVAQUIN 50 0 MG TABS 300562 LEVOFLOXACIN Inactive AZITHROMYCIN 250 MG TABS 2 po qd x 1 day, then 1 po qd x 4 days AZITHROMYCIN 250 MG TABS 4761856 AZITHROMYCIN Inactiv e MEDROL (REYNA) 4 MG TABS 6 tabs on day 1, 5 tabs on d ay 2, 4 tabs on day 3, 3 tabs on day 4, 2 tabs on day 5, 1 tab on day 6 MEDROL (REYNA) 4 MG TABS METHYLPREDNISOLONE Inactive CHERATUSSIN AC 100-10 MG/5ML SYRP 5ml po q6hr PRN Cough CHERATUSSIN AC 100-10 MG/5ML SYRP 178115 GUAIFENESIN-CODEINE Inacti ve TRIAMCINOLONE ACETONIDE 0.1 % CREA apply three times daily prn r beatrice TRIAMCINOLONE ACETONIDE 0.1 % CREA 0764498 TRIAMCINOLONE ACETONIDE Inactive AZITHROMYCIN 250 MG TABS 2 po qd x 1 day, then 1 po qd x 4 days AZITHROMYCIN 250 MG TABS 3766512 AZITHROMYCIN Inactiv e MEDROL (REYNA) 4 MG [...] days 20 13/03/08 AMOXICILLIN 500 MG CAP 298887 AMOXICILLIN Inactive AMOXICILLIN 500 MG CAP 1 tab by mouth 3 times daily x 10 days 20 14/04/28 AMOXICILLIN 500 MG CAP 831997 AMOXICILLIN Inactive Vital Signs Date Name Value [...] [phone] Encounters Code Encounter Date Provider Facility CPT-83438 Level 3 Est. Patient 13:06:43 CDT Ridge tam DO [facility] CPT-06574 Level 3 Est. Patient 10:03:07 CDT Perez Mora MD [facility] CPT-10102 Level 3 Est. Patient 19:50:35 BATH MIXER Carlton rich MD [facility] [place]-04551 Level 4 Est. Patient 18:05:01 BATH MIXER Carlton rich MD [facility] [place]-71945 Level 3 Est. Patient 10:45:55 BATH MIXER Hugo Restrepo MD [facility] [place]-80421 Level 3 Est. Patient 14:12:49 CDT Griffin HERNANDEZ [facility] [place]-16738 Level 3 Est. Patient 17:37:24 CDT Carlton rich MD [facility] [place]-92618 Level 3 Est. Patient 16:51:54 CDT Carlton rich MD [facility] [place]-68025 Level 3 Est. Patient 12:18:11 CDT Hugo Restrepo MD [facility] [place]-09823 Level 3 Est. Patient 11:30:25 CDT Marcy crisostomo MD PhD [facility] [place]-26939 Level 3 Est. Patient 12:00:47 BATH MIXER Carlton rich MD [facility] [place]-09055 Level 3 Est. Patient 16:31:06 BATH MIXER Carlton rich MD [facility] [place]-34779 Level 3 Est. Patient 16:23:24 BATH MIXER Ridge tam DO [facility] [place]-74427 Level 3 Est. Patient 12:34:12 CDT Carlton rich MD [facility] CPT-25680 Level 2 Est. Patient 15:43:33 CDT Robi armstrong MD [facility]-68156 Level 4 Est. Patient 14:04:44 CDT Carlton rich MD [facility] [place]-53622 Level 3 Est. Patient 05:47:59 CDT Ridge tam [facility]-[address]144 Level 3 Est. Patient 13:12:53 BATH MIXER Carlton rich MD [facility] CPT-49883 Level 3 Est. Patient 14:26:53 CDT Hugo Restrepo MD [facility] Procedures Code Procedure Name Date Entry Date Standard Desc ription CPT-51727 Hip bilat min 2V w AP pelvis 13:16:20 CDT 2 CPT-72871 Pelvis only 13:07:33 CDT CPT-79365 Spec Collection and Handling Fee 11:25:12 C DT CPT-49172 Fluzone Quadrivalent Intramuscular Suspe nsion 0.5 ML 14:31:55 CDT CPT-84843 Abx/Therapy Injection 13:28:47 BATH MIXER CPT-J2930 Solu Medrol 125 mg (Methyl Prednisolone Sodium Succinate) 12:00:47 BATH MIXER CPT-57947 Venipuncture Draw Fee 11:33:31 CDT CPT-99114 EKG Trac and Interp 11:21:09 CDT CPT-83877 Chest 2V Frontal and Lat 11:21:09 CDT 12/15 CPT-47842 Venipuncture Draw Fee 08:02:34 CDT CPT-70303 Chest 2V Frontal and Lat 05:47:59 CDT 06/05
--- OUTSIDE RECORDS SUMMARY | 2019-10-08 08:22 | XMS REPORT | Clinical Summary ---
Author Author Caitlin, Juliana Martinez Organization [facility] Address Unknown Phone Unavailable [...] Inactive Hugo Restrepo MD Bronchitis ICD-490 Inactive uHgo Restrepo MD 201 10/02/29 Medication List Medication Instructions Start Date Stop Date Generic Name NDC Status Provider Patient Instruction TUSSIONEX PENNKINETIC ER 10-8 MG/5ML LQCR 5ml po q12hr PRN Cough 20 14/09/04 HYDROCOD POLST-CHLORPHEN POLST 25469197703 Active Elise Whitmore APRN Active ZITHROMAX 250 MG TAB 2 po today, then 1 po q days 2-5 AZITHROMYCIN 11928822271 No Longer Active Elise Whitmore APRN Acti ve TUSSIONEX PENNKINETIC ER 10-8 MG/5ML LQCR 5 ml twice a day a s needed for cough HYDROCOD POLST-CHLORPHEN POLST 98856638529 N o Longer Active Elise Whitmore APRN Active MONTELUKAST SODIUM 10 MG ORAL TABS 1 po daily for Allergy 6 MONTELUKAST SODIUM 78487071874 Active ALFREDO Holly Act nael TUSSIONEX PENNKINETIC ER 10-8 MG/5ML LQCR 5ml po q12hr PRN Cough HYDROCOD POLST-CHLORPHEN POLST 20077726992 No Longer Active Hugo Restrepo MD Active GABAPENTIN 100 MG CAPS 1 po BID for fibromyalgia GABAPENTIN 81062384570 Active Elise Whitmore APRN Active LYRICA 100 MG CAPS Take 1 tab po BID for fibromyalgia PREGABALIN 53003326274 No Longer Active Elise Whitmore APRN Acti ve PROAIR HFA 108 (90 BASE) MCG/ACT AERS 2 puffs four times a d ay as needed ALBUTEROL SULFATE 81057561640 Active Elise Whitmore APRN Active MUCINEX DM MAXIMUM STRENGTH 60-1200 MG [id number] 1 tab po q am 2016 DEXTROMETHORPHAN-GUAIFENESIN 06876132179 Active Jillina Cesarl [employer] ENRICHMENT DIRECTOR Active PREDNISONE 20 MG TAB 2 tabs daily for 3 days, 1 t ab daily for 3 days, 1/2 tab daily for 2 days PREDNISONE 72122802453 No Longer Active Jillina Frakerriel LIFE ENRICHMENT DIRECTOR Active TUSSIONEX PENNKINETIC ER 10-8 MG/5ML ORAL LQCR 5 mL PO q 12 hrs PRN cough HYDROCOD POLST-CHLORPHEN POLST 18665183926 No Longer Active Jillina Frazell LIFE ENRICHMENT DIRECTOR Active FLUTICASONE PROPIONATE 50 MCG/ACT SUSP 2 sprays each n ostril daily until bottle is empty FLUTICASONE PROPIONATE 70881863414 No Longer Ac tive Jillina Frazell LIFE ENRICHMENT DIRECTOR Active ASMANEX 60 METERED DOSES 220 MCG/INH AEPB 1 puff bid with ri nse after MOMETASONE FUROATE 36460239068 No Longer Active Jillina Darlin ell LIFE ENRICHMENT DIRECTOR Active ZITHROMAX Z-REYNA 250 MG TABS 2 today, then 1 daily for 4 days 201 09/29/14 AZITHROMYCIN 97691446140 No Longer Active Elise Whitmore APRN Active TUSSIONEX PENNKINETIC ER 10-8 MG/5ML LQCR 5ml po q12hr PRN Cough HYDROCOD POLST-CHLORPHEN POLST 45501585717 No Longer Active Elise Whitmore LIFE ENRICHMENT DIRECTOR Active MUCINEX D 60-600 MG [id number] 1 tab po q am PSEUDOEPHEDRINE-GUAIFENESIN 92140516730 Active Jillina Frazell LIFE ENRICHMENT DIRECTOR Active PREDNISONE 20 MG TAB 2 tabs daily for 3 days, 1 t ab daily for 3 days, 1/2 tab daily for 2 days PREDNISONE 77593419114 No Longer Active Jillina Frazell LIFE ENRICHMENT DIRECTOR Active AMOXICILLIN 500 MG CAPS 2 po BID x 10 days AMOX ICILLIN 59471603492 No Longer Active Jillina Frazell LIFE ENRICHMENT DIRECTOR Active SINGULAIR 10 MG TABS 1 po qday for allergies 2 MONTELUKAST SODIUM 10638621496 No Longer Active Carlton Hu MD Acti ve LEVAQUIN 500 MG TAB 1 tablet by mouth daily LEV OFLOXACIN 39716452086 No Longer Active Carlton Hu MD Active FLUTICASONE PROPIONATE 50 MCG/ACT SUSP 2 sprays each n ostril daily for 2 weeks, then 1 spray each nostril daily. FLUTICASONE PRO PIONATE 09018965237 Active Elise Whitmore APRN Active ZITHROMAX 250 MG TAB 2 po today, then 1 po q days 2-5 AZITHROMYCIN 24035575432 No Longer Active Elise Whitmore APRN Acti ve XANAX 0.5 MG TABS one tablet by mouth daily prn anxiety ALPRAZOLAM 69678817752 Active Elise Whitmore APRN Active CYMBALTA 30 MG CPEP 1 cap by mouth daily for depression DULOXETINE HCL 80842167089 Active Carlton Hu MD Active CEFDINIR 300 MG CAPS 1 po BID x 10 days CEFDINI R 90249163692 No Longer Active Carlton Hu MD Active ZOCOR 40 MG TAB 1 tab by mouth daily SIMVASTATI N 16107153338 No Longer Active Carlton Hu MD Active CYCLOBENZAPRINE HCL 10 MG TABS 1 tablet by mouth BID prn had cherelle n CYCLOBENZAPRINE HCL 90774596210 No Longer Active Carlton Hu MD Active LEVOFLOXACIN 500 MG ORAL TABS 1 tab PO daily x 10 days LEVOFLOXACIN 15959471799 No Longer Active Carlton Hu MD Acti ve PREDNISONE 20 MG ORAL TABS 3 tab PO qd x 2d, 2 tab PO qd x 2d, 1 tab PO qd x 2d, 1/2 tab PO qd x 2d PREDNISONE 05888427414 No Longer Active Carlton Hu MD Active FLUTICASONE PROPIONATE 50 MCG/ACT SUSP 1 to 2 sprays each no stril daily FLUTICASONE PROPIONATE 44005703023 No Longer Active T jaz HERNANDEZ Active CHERATUSSIN AC 100-10 MG/5ML SYRP 1 tsp by mouth every 4 hours as needed for cough GUAIFENESIN-CODEINE 44433396162 No Longer Activ e Blaine HERNANDEZ Active PROMETHAZINE-CODEINE 6.25-10 MG/5ML SYRP 1 tsp by mout h every 6 hours if needed for cough PROMETHAZINE-CODEINE 90490522400 No Long er Active Blaine HERNANDEZ Active CHERATUSSIN AC 100-10 MG/5ML SYRP 1 tsp by mouth every 4 hours as needed for cough GUAIFENESIN-CODEINE 68060176660 No Longer Activ e Blaine HERNANDEZ Active ZITHROMAX Z-REYNA 250 MG TABS 2 today, then 1 daily for 4 days 201 08/30/03 AZITHROMYCIN 06475551669 No Longer Active Columba Raida Act nael ZITHROMAX 250 MG TAB 2 po today, then 1 po q days 2-5 AZITHROMYCIN 82502283874 No Longer Active Carlton Hu MD Acti ve ZITHROMAX Z-REYNA 250 MG TABS 2 today, then 1 daily for 4 days 201 08/07/20 AZITHROMYCIN 24207975828 No Longer Active Columba Raida Act nael AUGMENTIN 875-125 MG TAB 1 po BID x 10 days AMOXICILLIN- POT CLAVULANATE 35257895531 No Longer Active Jillina Frazell LIFE ENRICHMENT DIRECTOR Active ZITHROMAX 250 MG TAB 2 po today, then 1 po q days 2-5 AZITHROMYCIN 73340255176 No Longer Active Carlton Hu MD Acti ve TRAMADOL HCL 50 MG TABS 1 po tid with ES Tylenol TRAMADOL HCL 34072489502 Active Carlton Hu MD Active PREMARIN 0.625 MG TABS TAKE 1 TAB BY MOUTH DAILY 07/25 ESTROGENS CONJUGATED 58164444190 No Longer Active Ridge Bess DO Active CYMBALTA 30 MG CPEP 1 cap by mouth daily DULOXE SNEHA HCL 29120018131 No Longer Active Ridge Bess DO Active AMOXICILLIN 500 MG CAP 1 tab by mouth 3 times daily x 10 days 20 14/04/28 AMOXICILLIN 73544337535 No Longer Active Carlton Hu MD Active AMOXICILLIN 500 MG CAP 1 tab by mouth 3 times daily x 10 days 20 13/03/08 AMOXICILLIN 40966753880 No Longer Active Carlton Hu MD Active PROMETHAZINE-CODEINE 6.25-10 MG/5ML SYRP 1 tsp by mouth ever y 8 hours prn cough PROMETHAZINE-CODEINE 37968490174 No Longer Active Robert Hu MD Active MEDROL (REYNA) 4 MG TABS 6 pills x 1 day, then 5 pill s x 1 day then 4 pills x 1 day, then 3 pills x 1 day, then 2 pills x 1 day, then 1 pill x 1 day, then stop METHYLPREDNISOLONE 27913161146 No Longer Active Parris Mora MD Active AZITHROMYCIN 250 MG TABS 2 po qd x 1 day, then 1 po qd x 4 days AZITHROMYCIN 57990450449 No Longer Active Perez Mora MD Active SYMBICORT 160-4.5 MCG/ACT AERO 2 puffs bid with rinse after 2011 BUDESONIDE-FORMOTEROL FUMARATE 87644468213 No Longer Active Perez Mora MD Active LYRICA 75 MG CAPS TAKE 1 CAPSULE BY MOUTH TWICE DAILY 2013 PREGABALIN 44535736577 No Longer Active Carlton Hu MD Active TOPAMAX 25 MG TABS 1 qHS x 1 week, then 1 BID x 1 week, then 1 qAM and 2 qHS x 1 week, then 2 BID (migraine prevention) TOPIRAMAT E 06922938136 No Longer Active Jerica FUENTES Active TOPAMAX 50 MG TABS take 1 tab po BID for migraines. 12/07/10 TOPIRAMATE 55574070433 No Longer Active Jerica FUENTES Ac tive TOPAMAX 100 MG TABS Take 1 tablet po bid TOPIRAMATE 4999 7435647 Active Elise Whitmore APRN Active TRIAMCINOLONE ACETONIDE 0.1 % CREA apply three times daily prn r beatrice TRIAMCINOLONE ACETONIDE 10926410573 No Longer Active Carlton Hu MD Active PAXIL 40 MG TAB take 1 tab po qday for depression PAROXETINE HCL 18366514371 Active Elise Whitmore APRN Active CHERATUSSIN AC 100-10 MG/5ML SYRP 5ml po q6hr PRN Cough GUAIFENESIN-CODEINE 19445086861 No Longer Active Carlton Hu MD Active MEDROL (REYNA) 4 MG TABS 6 tabs on day 1, 5 tabs on d ay 2, 4 tabs on day 3, 3 tabs on day 4, 2 tabs on day 5, 1 tab on day 6 METHYLPREDNISOLONE 26797383206 No Longer Active Perez Mora MD Active AZITHROMYCIN 250 MG TABS 2 po qd x 1 day, then 1 po qd x 4 days AZITHROMYCIN 72378900306 No Longer Active Perez Mora MD Active PROPRANOLOL HCL 60 MG TABS 1 PO Q D PROPRANOL OL HCL 38097385109 No Longer Active Perez Mora MD Active CHERATUSSIN AC 100-10 MG/5ML SYRP take one tsp po Q 6hours prn c ough GUAIFENESIN-CODEINE 66590038363 No Longer Active Perez Means Active AUGMENTIN 875-125 MG TAB 1 tab by mouth twice daily with food 12/03/31 AMOXICILLIN-POT CLAVULANATE 03629826541 No Longer Active Chanel Mora MD Active CHERATUSSIN AC 100-10 MG/5ML SYRP 1 tsp by mouth every 4 hours as needed for cough GUAIFENESIN-CODEINE 07365207119 No Longer Activ e Hugo Restrepo MD Active ACETAMINOPHEN-CODEINE #3 300-30 MG TABS 1 PO Q 4-6 HRS PRN PAIN ACETAMINOPHEN-CODEINE 29655485336 No Longer Active Hugo Restrepo MD Active LEVAQUIN 500 MG TABS take one po QD LEVOFLOXACI N 11203932485 No Longer Active Griffin HERNANDEZ Active PREDNISONE 20 MG TAB Take 3 tabs daily for 3 days , 2 tabs daily for 3 days, 1 tab daily for 3 days, 1/2 tab daily for 3 days P REDNISONE 63598568865 No Longer Active Carlton Hu MD Active AVELOX 400 MG TABS 1 tab by mouth daily MOXIFLO XACIN HCL 41503495470 No Longer Active Carlton Hu MD Active CHERATUSSIN AC 100-10 MG/5ML SYRP 1 tsp by mouth every 4 hours as needed for cough GUAIFENESIN-CODEINE 31977288549 No Longer Activ e Hugo Restrepo MD Active AVELOX 400 MG TABS 1 tab by mouth daily MOXIFLO XACIN HCL 05897783605 No Longer Active Marcy De La Rosa MD PhD Active TERBINAFINE HCL 250 MG TABS 1 qDay TERBINAF INE HCL 44304151727 No Longer Active Marcy De La Rosa MD PhD Active CHERATUSSIN AC 100-10 MG/5ML SYRP 1 tsp by mouth every 4 hours as needed for cough GUAIFENESIN-CODEINE 16109027148 No Longer Activ e Marcy De La Rosa MD PhD Active AVELOX 400 MG TABS 1 tab by mouth daily MOXIFLO XACIN HCL 67402812243 No Longer Active Marcy De La Rosa MD PhD Active HYDROCODONE-ACETAMINOPHEN 5-325 MG TABS 1 po q 6hr PRN cough 201 05/09/16 HYDROCODONE-ACETAMINOPHEN 08734789047 No Longer Active Marcy De La Rosa MD PhD Active PREDNISONE 20 MG TAB 2 tabs daily for 3 days, 1 t ab daily for 3 days, 1/2 tab daily for 2 days PREDNISONE 06019865036 No Longer Active Carlton Hu MD Active CEFDINIR 300 MG CAPS by mouth twice a day CEFDI ODILIA 31980622901 No Longer Active Carlton Hu MD Active HYDROCHLOROTHIAZIDE 25 MG TABS 1 TAB PO DAILY H YDROCHLOROTHIAZIDE 17688504177 Active Carlton Hu MD Active ACETAMINOPHEN-CODEINE #3 300-30 MG TABS 1 tablet po q 4-6hrs prn pain ACETAMINOPHEN-CODEINE 55617789050 No Longer Active Ridge Bess DO Active ZITHROMAX 250 MG TAB 2 po today, then 1 po q days 2-5 AZITHROMYCIN 77542965873 No Longer Active Carlton Hu MD Acti ve CHERATUSSIN AC 100-10 MG/5ML SYRP take 1 tsp po q4-6 hours prn c ough GUAIFENESIN-CODEINE 47439915726 No Longer Active Carlton Hu MD Active ACETAMINOPHEN-CODEINE #3 300-30 MG TABS 1 PO Q 4-6 HR PRN PAIN 2 ACETAMINOPHEN-CODEINE 61112148507 No Longer Active Carlton rich MD Active LORTAB 7.5-500 MG/15ML ELIX 7.5 ml po q 4 hour prn cough HYDROCODONE-ACETAMINOPHEN 40187787186 No Longer Active Carlton Hu MD Active PREDNISONE 20 MG TAB 1 po bid 3 days, then 1 po q day 3 days 201 05/03/07 PREDNISONE 94288051483 No Longer Active Carlton Hu MD Active ELMIRON 100 MG CAPS 2 tablets in the am and 1 tablet at hs PENTOSAN POLYSULFATE SODIUM 71953355779 Active Carlton Hu MD Ac tive CEFDINIR 300 MG CAPS by mouth twice a day CEFDI ODILIA 23053567699 No Longer Active Carlton Hu MD Active CEFDINIR 300 MG CAPS by mouth twice a day CEFDI ODILIA 67722772035 No Longer Active Carlton Hu MD Active CEFDINIR 300 MG CAPS by mouth twice a day CEFDI ODILIA 16532154352 No Longer Active Carlton Hu MD Active TESSALON PERLES 100 MG CAP 1 tablet by mouth 3 times daily a s needed for cough BENZONATATE 88019387648 No Longer Active Carlton bustamante MD Active CEFDINIR 300 MG CAPS by mouth twice a day CEFDI ODILIA 30368808317 No Longer Active Carlton Hu MD Active ZITHROMAX Z-REYNA 250 MG TABS 2 today, then 1 daily for 4 days 201 04/09/17 AZITHROMYCIN 54483527401 No Longer Active Hugo Retsrepo MD Active TESSALON PERLES 100 MG CAP 1 tablet by mouth 3 times daily a s needed for cough TESSALON PERLES 100 MG CAP 025294 BENZONATATE I nactive PREDNISONE 20 MG TAB 1 po bid 3 days, then 1 po q day 3 days 201 05/03/07 PREDNISONE 20 MG TAB 436746 PREDNISONE Inactive LORTAB 7.5-500 MG/15ML ELIX 7.5 ml po q 4 hour prn cough LORTAB 7.5-500 MG/15ML ELIX HYDROCODONE-ACETAMINOPHEN Inacti ve ACETAMINOPHEN-CODEINE #3 300-30 MG TABS 1 PO Q 4-6 HR PRN PAIN 2 ACETAMINOPHEN-CODEINE #3 300-30 MG TABS ACETAMIN OPHEN-CODEINE Inactive CHERATUSSIN AC 100-10 MG/5ML SYRP take 1 tsp po q4-6 hours prn c ough CHERATUSSIN AC 100-10 MG/5ML SYRP 726726 GUAIFENESIN-CO DEINE Inactive ACETAMINOPHEN-CODEINE #3 300-30 MG TABS 1 tablet po q 4-6hrs prn pain ACETAMINOPHEN-CODEINE #3 300-30 MG TABS ACETAMIN OPHEN-CODEINE Inactive HYDROCODONE-ACETAMINOPHEN 5-325 MG TABS 1 po q 6hr PRN cough 201 05/09/16 HYDROCODONE-ACETAMINOPHEN 5-325 MG TABS 778924 HYDROCODONE-ACETAMINOPHEN Inactive AVELOX 400 MG TABS 1 tab by mouth daily A VELOX 400 MG TABS 644988 MOXIFLOXACIN HCL Inactive CHERATUSSIN AC 100-10 MG/5ML SYRP 1 tsp by mouth every 4 hours as needed for cough CHERATUSSIN AC 100-10 MG/5ML SYRP 000110 GUAIFENESIN-CODEINE Inactive TERBINAFINE HCL 250 MG TABS 1 qDay TERBINAFINE HCL 250 MG TABS 946234 TERBINAFINE HCL Inactive CHERATUSSIN AC 100-10 MG/5ML SYRP 1 tsp by mouth every 4 hours as needed for cough CHERATUSSIN AC 100-10 MG/5ML SYRP 713455 GUAIFENESIN-CODEINE Inactive ACETAMINOPHEN-CODEINE #3 300-30 MG TABS 1 PO Q 4-6 HRS PRN PAIN ACETAMINOPHEN-CODEINE #3 300-30 MG TABS ACETAMINOPHEN-CODEIN E Inactive CHERATUSSIN AC 100-10 MG/5ML SYRP 1 tsp by mouth every 4 hours as needed for cough CHERATUSSIN AC 100-10 MG/5ML SYRP 004253 GUAIFENESIN-CODEINE Inactive AUGMENTIN 875-125 MG TAB 1 tab by mouth twice daily with food 20 12/03/31 AUGMENTIN 875-125 MG TAB 002685 AMOXICILLIN-POT CLAVULA EFE Inactive CHERATUSSIN AC 100-10 MG/5ML SYRP take one tsp po Q 6hours prn c ough CHERATUSSIN AC 100-10 MG/5ML SYRP 325071 GUAIFENESIN-CO DEINE Inactive PROPRANOLOL HCL 60 MG TABS 1 PO Q D P ROPRANOLOL HCL 60 MG TABS 004328 PROPRANOLOL HCL Inactive TOPAMAX 50 MG TABS take 1 tab po BID for migraines. 12/07/10 TOPAMAX 50 MG TABS 745683 TOPIRAMATE Inactive TOPAMAX 25 MG TABS 1 qHS x 1 week, then 1 BID x 1 week, then 1 qAM and 2 qHS x 1 week, then 2 BID (migraine prevention) TOPAMAX 2 5 MG TABS 624653 TOPIRAMATE Inactive LYRICA 75 MG CAPS TAKE 1 CAPSULE BY MOUTH TWICE DAILY LYRICA 75 MG CAPS PREGABALIN Inactive SYMBICORT 160-4.5 MCG/ACT AERO 2 puffs bid with rinse after 2011 SYMBICORT 160-4.5 MCG/ACT AERO BUDESONIDE-FORMOT SÁNCHEZ FUMARATE Inactive PROMETHAZINE-CODEINE 6.25-10 MG/5ML SYRP 1 tsp by mouth ever y 8 hours prn cough PROMETHAZINE-CODEINE 6.25-10 MG/5ML SYRP 018266 PROMETHAZINE-CODEINE Inactive CYMBALTA 30 MG CPEP 1 cap by mouth daily CYMBALTA 30 MG CPEP 409336 DULOXETINE HCL Inactive PREMARIN 0.625 MG TABS TAKE 1 TAB BY MOUTH DAILY 07/25 PREMARIN 0.625 MG TABS ESTROGENS CONJUGATED Inactive CHERATUSSIN AC 100-10 MG/5ML SYRP 1 tsp by mouth every 4 hours as needed for cough CHERATUSSIN AC 100-10 MG/5ML SYRP 825511 GUAIFENESIN-CODEINE Inactive PROMETHAZINE-CODEINE 6.25-10 MG/5ML SYRP 1 tsp by mout h every 6 hours if needed for cough PROMETHAZINE-CODEINE 6.25-10 MG/5ML SYRP 388992 PROMETHAZINE-CODEINE Inactive CHERATUSSIN AC 100-10 MG/5ML SYRP 1 tsp by mouth every 4 hours as needed for cough CHERATUSSIN AC 100-10 MG/5ML SYRP 413377 GUAIFENESIN-CODEINE Inactive FLUTICASONE PROPIONATE 50 MCG/ACT SUSP 1 to 2 sprays each no stril daily FLUTICASONE PROPIONATE 50 MCG/ACT SUSP 7857902 FLUTICASONE PROPIONATE Inactive PREDNISONE 20 MG ORAL TABS 3 tab PO qd x 2d, 2 tab PO qd x 2d, 1 tab PO qd x 2d, 1/2 tab PO qd x 2d PREDNISONE 20 MG ORAL TABS 749829 PREDNISONE Inactive LEVOFLOXACIN 500 MG ORAL TABS 1 tab PO daily x 10 days LEVOFLOXACIN 500 MG ORAL TABS 741424 LEVOFLOXACIN Inactive CYCLOBENZAPRINE HCL 10 MG TABS 1 tablet by mouth BID prn had cherelle n CYCLOBENZAPRINE HCL 10 MG TABS 772529 CYCLOBENZAPRINE H CL Inactive ZOCOR 40 MG TAB 1 tab by mouth daily ZOCOR 40 M G TAB 888674 SIMVASTATIN Inactive TUSSIONEX PENNKINETIC ER 10-8 MG/5ML [...] empty FLUTICASONE PROPIONATE 50 MCG/ACT SUSP 17 90127 FLUTICASONE PROPIONATE Inactive TUSSIONEX PENNKINETIC ER 10-8 [...] 201 04/09/17 ZITHROMAX Z-REYNA 250 MG TABS 3732205 AZITHROMYCIN Inac tive CEFDINIR 300 MG CAPS [...] q days 2-5 ZITHROMAX 250 MG TAB 9202322 AZITHROMYCIN Inactive CEFDINIR 300 MG CAPS by mouth twice a day CEFDINIR 300 MG CAPS 20020704 CEFDINIR Inactive PREDNISONE 20 MG TAB 2 tabs daily for 3 days, 1 t ab daily for 3 days, 1/2 tab daily for 2 days PREDNISONE 20 MG TAB 791143 PREDNISON E Inactive AVELOX 400 MG TABS 1 tab by mouth daily A VELOX 400 MG TABS 539859 MOXIFLOXACIN HCL Inactive AVELOX 400 MG TABS 1 tab by mouth daily A VELOX 400 MG TABS 188249 MOXIFLOXACIN HCL Inactive PREDNISONE 20 MG TAB Take 3 tabs daily for 3 days , 2 tabs daily for 3 days, 1 tab daily for 3 days, 1/2 tab daily for 3 days PREDNISONE 20 MG TAB 851124 PREDNISONE Inactive LEVAQUIN 500 MG TABS take one po QD LEVAQUIN 50 0 MG TABS 660662 LEVOFLOXACIN Inactive AZITHROMYCIN 250 MG TABS 2 po qd x 1 day, then 1 po qd x 4 days AZITHROMYCIN 250 MG TABS 2994590 AZITHROMYCIN Inactiv e MEDROL (REYNA) 4 MG TABS 6 tabs on day 1, 5 tabs on d ay 2, 4 tabs on day 3, 3 tabs on day 4, 2 tabs on day 5, 1 tab on day 6 MEDROL (REYNA) 4 MG TABS 913063 METHYLPREDNISOLONE Inactive CHERATUSSIN AC 100-10 MG/5ML SYRP 5ml po q6hr PRN Cough CHERATUSSIN AC 100-10 MG/5ML SYRP 728550 GUAIFENESIN-CODEINE Inacti ve TRIAMCINOLONE ACETONIDE 0.1 % CREA apply three times daily prn r beatrice TRIAMCINOLONE ACETONIDE 0.1 % CREA 2323409 TRIAMCINOLONE ACETONIDE Inactive AZITHROMYCIN 250 MG TABS 2 po qd x 1 day, then 1 po qd x 4 days AZITHROMYCIN 250 MG TABS 9541736 AZITHROMYCIN Inactiv e MEDROL (REYNA) 4 MG TABS 6 pills x 1 day, then 5 pill s x 1 day then 4 pills x 1 day, then 3 pills x 1 day, then 2 pills x 1 day, then 1 pill x 1 day, then stop MEDROL (REYNA) 4 MG TABS 809212 METHYLPREDNISOLONE Inactive AMOXICILLIN 500 MG CAP 1 tab by mouth 3 times daily x 10 days 20 13/03/08 AMOXICILLIN 500 MG CAP 559389 AMOXICILLIN Inactive AMOXICILLIN 500 MG CAP 1 tab by mouth 3 times daily x 10 days 20 14/04/28 AMOXICILLIN 500 MG CAP 697828 AMOXICILLIN Inactive ZITHROMAX 250 MG TAB 2 po today, then 1 po q days 2-5 ZITHROMAX 250 MG TAB 1752397 AZITHROMYCIN Inactive AUGMENTIN 875-125 MG TAB 1 po BID x 10 days AUGMENTIN 875- 125 MG TAB 306117 AMOXICILLIN-POT CLAVULANATE Inactive ZITHROMAX Z-REYNA 250 MG TABS 2 today, then 1 daily for 4 days 201 08/07/20 ZITHROMAX Z-REYNA 250 MG TABS 5374330 AZITHROMYCIN Inac tive ZITHROMAX 250 MG TAB 2 po today, then 1 po q days 2-5 ZITHROMAX 250 MG TAB 9389866 AZITHROMYCIN Inactive ZITHROMAX Z-REYNA 250 MG TABS 2 today, then 1 daily for 4 days 201 08/30/03 ZITHROMAX Z-REYNA 250 MG TABS 5539848 AZITHROMYCIN Inac tive CEFDINIR 300 MG CAPS 1 po BID x 10 days C EFDINIR 300 MG CAPS 20020704 CEFDINIR Inactive ZITHROMAX 250 MG TAB 2 po today, then 1 po q days 2-5 ZITHROMAX 250 MG TAB 4734040 AZITHROMYCIN Inactive LEVAQUIN 500 MG TAB 1 tablet by mouth daily LEVAQUIN 500 MG TAB 084673 LEVOFLOXACIN Inactive SINGULAIR 10 MG TABS 1 po qday for allergies 2 SINGULAIR 10 MG TABS 20010504 MONTELUKAST SODIUM Inactive AMOXICILLIN 500 MG CAPS 2 po BID x 10 days AMOXICILLIN 500 MG CAPS 364583 AMOXICILLIN Inactive PREDNISONE 20 MG TAB 2 tabs daily for 3 days, 1 t ab daily for 3 days, 1/2 tab daily for 2 days PREDNISONE 20 MG TAB 849347 PREDNISON E Inactive ZITHROMAX Z-REYNA 250 MG TABS 2 today, then 1 daily for 4 days 201 09/29/14 ZITHROMAX Z-REYNA 250 MG TABS 7410915 AZITHROMYCIN Inac tive PREDNISONE 20 MG TAB 2 tabs daily for 3 days, 1 t ab daily for 3 days, 1/2 tab daily for 2 days PREDNISONE 20 MG TAB 543262 PREDNISON E Inactive ZITHROMAX 250 MG TAB 2 po today, then 1 po q days 2-5 ZITHROMAX 250 MG TAB 0587190 AZITHROMYCIN Inactive Vital Signs Date Name Value [...] Negative Encounters Code Encounter Date Provider Facility CPT-36082 Level 3 Est. Patient 12:17:50 CDT Hugo Restrepo MD [facility] CPT-09018 Level 3 Est. Patient 13:42:38 CDT Italo [facility] [place] CPT-99673 Level 3 Est. Patient 13:23:51 CDT Diya cobian [facility] [place] CPT-73493 Level 3 Est. Patient 14:22:19 GLOBAL PRESIDENT Diya cobian [facility] [place] CPT-56555 Level 3 Est. Patient 10:11:46 CDT Carlton rich MD [facility] CPT-77887 Level 3 Est. Patient 17:29:43 CDT Italo [facility] [place] CPT-62760 Level 3 Est. [facility] Est[facility] Patient 14:36:51 CDT Carlton rich MD [facility] [place]-95893 Level 3 Est. Patient 18:16:00 GLOBAL PRESIDENT Blaine HERNANDEZ [facility] CPT-84551 Level 3 Est. Patient 09:45:49 GLOBAL PRESIDENT Carlton rich MD [facility] CPT-05963 Level 3 Est. Patient 13:19:20 CDT Carlton rich MD [facility] CPT-05058 Level 3 Est. Patient 13:06:43 CDT Ridge tam DO [facility] CPT-45710 Level 3 Est. Patient 10:03:07 CDT Perez Mora MD [facility] CPT-31627 Level 3 Est. Patient 19:50:35 GLOBAL PRESIDENT Carlton rich MD [facility]-02014 Level 4 Est. Patient 18:05:01 GLOBAL PRESIDENT Carlton rich MD [facility]-84597 Level 3 Est. Patient 10:45:55 GLOBAL PRESIDENT Hugo Restrepo MD [facility]-81018 Level 3 Est. Patient 14:12:49 CDT Griffin HERNANDEZ [facility]-60280 Level 3 Est. Patient 17:37:24 CDT Carlton rich MD [facility]-89737 Level 3 Est. Patient 16:51:54 CDT Carlton rich MD [facility]-72678 Level 3 Est. Patient 12:18:11 CDT Hugo Restrepo MD [facility]-03794 Level 3 Est. Patient 11:30:25 CDT Marcy crisostomo MD PhD [facility]-52659 Level 3 Est. Patient 12:00:47 GLOBAL PRESIDENT Carlton rich MD [facility]-10573 Level 3 Est. Patient 16:31:06 GLOBAL PRESIDENT Carlton rich MD [facility]-15214 Level 3 Est. Patient 16:23:24 GLOBAL PRESIDENT Ridge tam DO [facility]-91941 Level 3 Est. Patient 12:34:12 CDT Carlton rich MD [facility]-31537 Level 2 Est. Patient 15:43:33 CDT Robi armstrong MD [facility]-72364 Level 4 Est. Patient 14:04:44 CDT Carlton rich MD [facility]-38971 Level 3 Est. Patient 05:47:59 CDT Ridge W L ee DO [facility] CPT-61284 Level 3 Est. Patient 13:12:53 GLOBAL PRESIDENT Carlton rich MD [facility] CPT-35761 Level 3 Est. Patient 14:26:53 CDT Hugo Restrepo MD [facility] Procedures Code Procedure Name Date Entry Date Standard Desc ription CPT-J1040 Depo Medrol 80 mg (Methyl Prednisolone A cetate) 10:42:44 CDT CPT-J1100 Decadron 8mg (Dexamethasone) 10:42:44 CDT 2 CPT-J0696 Rocephin 1gm Inj Solr 14:32:13 CDT CPT-J1020 Depo Medrol 60 mg (Methyl Prednisolone A cetate) 14:32:13 CDT CPT-J1100 Decadron 6mg (Dexamethasone) 14:32:13 CDT 2 CPT-68843 Hip bilat min 2V w AP pelvis 13:16:20 CDT 2 CPT-05894 Pelvis only 13:07:33 CDT CPT-38980 Spec Collection and Handling Fee 11:25:12 C DT CPT-02115 Fluzone Quadrivalent Intramuscular Suspe nsion 0.5 ML 14:31:55 CDT CPT-69584 Abx/Therapy Injection 13:28:47 GLOBAL PRESIDENT CPT-J2930 Solu Medrol 125 mg (Methyl Prednisolone Sodium Succinate) 12:00:47 GLOBAL PRESIDENT CPT-06879 Venipuncture Draw Fee 11:33:31 CDT CPT-77923 EKG Trac and Interp 11:21:09 CDT CPT-50129 Chest 2V Frontal and Lat 11:21:09 CDT 12/15 CPT-05468 Venipuncture Draw Fee 08:02:34 CDT CPT-32124 Chest 2V Frontal and Lat 05:47:59 CDT 06/05
--- OUTSIDE RECORDS SUMMARY | 2019-10-08 08:22 | XMS REPORT | Clinical Summary ---
Author Author Caitlin, Juliana Martinez Organization [email or web address] [facility] Address Unknown Phone Unavailable Allergies, [...] po qd x 5 days P REDNISONE [id number] No Longer Active Perez Mora MD Active PROAIR HFA 108 (90 BASE) MCG/ACT INHALATION AEROSOL SO LUTION 2 puffs four times a day as needed ALBUTEROL SULFATE 56990468773 No Long er Active Becky FUENTES Active ASPIRIN 81 MG ORAL TABLET 1 po qd ASPIRIN 27899405017 Active Carlton Hu MD Active PREDNISONE 20 MG ORAL TABLET 1 tab twice daily for 3 d ay, then one daily for three days PREDNISONE 31564027511 No Longer Active Carlton Hu MD Active AUGMENTIN 875-125 MG ORAL TABLET 1 po BID x 10 days 16/03/22 AMOXICILLIN-POT CLAVULANATE 25200180949 No Longer Active Elise Garcia APRN Active TERBINAFINE HCL 250 MG ORAL TABLET 1 qDay for nail fungus 7 TERBINAFINE HCL 98792675082 No Longer Active Carlton Hu MD A ctive TUSSIONEX PENNKINETIC ER 10-8 MG/5ML ORAL SUSPENSION E XTENDED RELEASE 5ml po q12hr PRN Cough HYDROCOD POLST-CHLORPHEN POLST 67402793376 Active Carlton Hu MD Active AMOXICILLIN 500 MG ORAL CAPSULE 1 cap by mouth three times a day AMOXICILLIN 11174134056 No Longer Active Carlton Hu MD Active ELMIRON 100 MG ORAL CAPSULE 2 tablets in the am and 1 tablet at hs PENTOSAN POLYSULFATE SODIUM 06601681976 No Longer Active Robert Hu MD Active MUCINEX D 60-600 MG ORAL TABLET EXTENDED RELEASE 12 HOUR 1 t ab po q am PSEUDOEPHEDRINE-GUAIFENESIN 93299666217 No Longer Act nael Carlton Hu MD Active MUCINEX DM MAXIMUM STRENGTH 60-1200 MG ORAL TABLET EXT ENDED RELEASE 12 HOUR 1 tab po q am DEXTROMETHORPHAN-GUAIFENESIN 08947591154 No Longer Active Carlton Hu MD Active TUSSIONEX PENNKINETIC ER 10-8 MG/5ML ORAL SUSPENSION E XTENDED RELEASE 5ml po q12hr PRN Cough HYDROCOD POLST-CHLORPHEN POLST 5 8476103596 No Longer Active Carlton Hu MD Active POTASSIUM CHLORIDE ER 20 MEQ ORAL TABLET EXTENDED RELE ASE Take 1 by mouth 4 times daily for 7 days POTASSIUM CHLORIDE 66487309471 No Longer Active Carlton Hu MD Active ZITHROMAX 250 MG ORAL TABLET 2 po today, then 1 po q days 2-5 20 14/09/04 AZITHROMYCIN 99286548970 No Longer Active Elise Garcia APRN Active TUSSIONEX PENNKINETIC ER 10-8 MG/5ML ORAL SUSPENSION E XTENDED RELEASE 5 ml twice a day as needed for cough HYDROCOD POLST-CHLORPH EN POLST 46852170103 No Longer Active Elise Garcia APRN Active MONTELUKAST SODIUM 10 MG ORAL TABLET 1 po daily for Allergy MONTELUKAST SODIUM 20413612441 Active Carlton Hu MD Ac tive TUSSIONEX PENNKINETIC ER 10-8 MG/5ML ORAL SUSPENSION E XTENDED RELEASE 5ml po q12hr PRN Cough HYDROCOD POLST-CHLORPHEN POLST 5 8912296988 No Longer Active Hugo Restrepo MD Active GABAPENTIN 100 MG ORAL CAPSULE 1 po BID for fibromyalgia GABAPENTIN 11922004828 Active Carlton Hu MD Active LYRICA 100 MG ORAL CAPSULE Take 1 tab po BID for fibromyalgia 20 11/08/21 PREGABALIN 69210356984 No Longer Active Elise Garcia APRN A ctive PREDNISONE 20 MG ORAL TABLET 2 tabs daily for 3 days, 1 tab daily for 3 days, 1/2 tab daily for 2 days PREDNISONE 20090215990 No Longer Active Diya De Guzman APRN Active TUSSIONEX PENNKINETIC ER 10-8 MG/5ML ORAL SUSPENSION E XTENDED RELEASE 5 mL PO q 12 hrs PRN cough HYDROCOD POLST-CHLORPHEN POLST 070875 85470 No Longer Active Jillina Gege RICEN Active FLUTICASONE PROPIONATE 50 MCG/ACT NASAL SUSPENSION 2 s prays each nostril daily until bottle is empty FLUTICASONE PROPIONATE 867473414 99 No Longer Active Diya De Guzman APRN Active ASMANEX 60 METERED DOSES 220 MCG/INH INHALATION AEROSO L POWDER BREATH ACTIVATED 1 puff bid with rinse after MOMETASONE FUROATE 4472302 4102 No Longer Active Diya De Guzman APRN Active ZITHROMAX Z-REYNA 250 MG ORAL TABLET 2 today, then 1 daily for 4 d ays AZITHROMYCIN 70163810589 No Longer Active Elise Garcia APRN Active TUSSIONEX PENNKINETIC ER 10-8 MG/5ML ORAL SUSPENSION E XTENDED RELEASE 5ml po q12hr PRN Cough HYDROCOD POLST-CHLORPHEN POLST 5 5119348503 No Longer Active Elise Garcia APRN Active PREDNISONE 20 MG ORAL TABLET 2 tabs daily for 3 days, 1 tab daily for 3 days, 1/2 tab daily for 2 days PREDNISONE 07917028131 No Longer Active Diya De Guzman APRN Active AMOXICILLIN 500 MG ORAL CAPSULE 2 po BID x 10 days 201 09/29/08 AMOXICILLIN 85375507134 No Longer Active Diya De Guzman APRN Act nael SINGULAIR 10 MG ORAL TABLET 1 po qday for allergies 20 14/01/12 MONTELUKAST SODIUM 80286703294 No Longer Active Carlton Hu MD Active LEVAQUIN 500 MG ORAL TABLET 1 tablet by mouth daily 20 13/09/24 LEVOFLOXACIN 88419262212 No Longer Active Carlton Hu MD Acti ve FLUTICASONE PROPIONATE 50 MCG/ACT NASAL SUSPENSION 2 s prays each nostril daily for 2 weeks, then 1 spray each nostril daily. FLUTICASONE PROPIONATE 26554152557 Active Elise Garcia APRN Active ZITHROMAX 250 MG ORAL TABLET 2 po today, then 1 po q days 2-5 20 13/08/10 AZITHROMYCIN 71708399030 No Longer Active Elise Garcia APRN Active XANAX 0.5 MG ORAL TABLET one tablet by mouth daily prn anxiety 2015 ALPRAZOLAM 07282796551 Active Carlton Hu MD Active CYMBALTA 30 MG ORAL CAPSULE DELAYED RELEASE PARTICLES 1 cap by mouth daily for depression DULOXETINE HCL 97226213623 Active Carlton beltrán MD Active CEFDINIR 300 MG ORAL CAPSULE 1 po BID x 10 days CEFDINIR 40786310936 No Longer Active Carlton Hu MD Active ZOCOR 40 MG ORAL TABLET 1 tab by mouth daily SI MVASTATIN 36219414320 No Longer Active Carlton Hu MD Active CYCLOBENZAPRINE HCL 10 MG ORAL TABLET 1 tablet by mouth BID prn had pain CYCLOBENZAPRINE HCL 41417551258 No Longer Active Jayden Hu MD Active LEVOFLOXACIN 500 MG ORAL TABLET 1 tab PO daily x 10 days LEVOFLOXACIN 18792652457 No Longer Active Carlton Hu MD Acti ve PREDNISONE 20 MG ORAL TABLET 3 tab PO qd x 2d, 2 tab P O qd x 2d, 1 tab PO qd x 2d, 1/2 tab PO qd x 2d PREDNISONE 01579024832 No Lo nger Active Carlton Hu MD Active FLUTICASONE PROPIONATE 50 MCG/ACT NASAL SUSPENSION 1 t o 2 sprays each nostril daily FLUTICASONE PROPIONATE 89029226097 No Longer Ac tive Blaine HERNANDEZ Active CHERATUSSIN AC 100-10 MG/5ML ORAL SYRUP 1 tsp by mouth every 4 hours as needed for cough GUAIFENESIN-CODEINE 50333865133 No Longe r Active Blaine HERNANDEZ Active PROMETHAZINE-CODEINE 6.25-10 MG/5ML ORAL SYRUP 1 tsp b y mouth every 6 hours if needed for cough PROMETHAZINE-CODEINE 83467696600 No Longer Active Blaine HERNANDEZ Active CHERATUSSIN AC 100-10 MG/5ML ORAL SYRUP 1 tsp by mouth every 4 hours as needed for cough GUAIFENESIN-CODEINE 26519157036 No Longe r Active Blaine HERNANDEZ Active ZITHROMAX Z-REYNA 250 MG ORAL TABLET 2 today, then 1 daily for 4 d ays AZITHROMYCIN 16079902957 No Longer Active Columba Raida Act nael ZITHROMAX 250 MG ORAL TABLET 2 po today, then 1 po q days 2-5 20 14/03/21 AZITHROMYCIN 26640129668 No Longer Active Carlton Hu MD Active ZITHROMAX Z-REYNA 250 MG ORAL TABLET 2 today, then 1 daily for 4 d ays AZITHROMYCIN 28741314576 No Longer Active Columba Raida Act nael AUGMENTIN 875-125 MG ORAL TABLET 1 po BID x 10 days 13/01/20 AMOXICILLIN-POT CLAVULANATE 52177355322 No Longer Active Diya De Guzman APRN Active ZITHROMAX 250 MG ORAL TABLET 2 po today, then 1 po q days 2-5 20 12/08/14 AZITHROMYCIN 40064391484 No Longer Active Carlton Hu MD Active TRAMADOL HCL 50 MG ORAL TABLET 1 po tid with ES Tylenol TRAMADOL HCL 74518364341 Active Carlton Hu MD Active PREMARIN 0.625 MG ORAL TABLET TAKE 1 TAB BY MOUTH DAILY ESTROGENS CONJUGATED 12036511760 No Longer Active Ridge Bess DO A ctive CYMBALTA 30 MG ORAL CAPSULE DELAYED RELEASE PARTICLES 1 cap by mouth daily DULOXETINE HCL 72466261779 No Longer Active Ridge tam DO Active AMOXICILLIN 500 MG ORAL CAPSULE 1 tab by mouth 3 times daily x 10 days AMOXICILLIN 39979808253 No Longer Active Carlton bustamante MD Active AMOXICILLIN 500 MG ORAL CAPSULE 1 tab by mouth 3 times daily x 10 days AMOXICILLIN 90172799075 No Longer Active Carlton bustamante MD Active PROMETHAZINE-CODEINE 6.25-10 MG/5ML ORAL SYRUP 1 tsp b y mouth every 8 hours prn cough PROMETHAZINE-CODEINE 43750055131 No Longer Acti ve Carlton Hu MD Active MEDROL 4 MG ORAL TABLET THERAPY PACK 6 pills x 1 day, then 5 pills x 1 day then 4 pills x 1 day, then 3 pills x 1 day, then 2 pills x 1 day, then 1 pill x 1 day, then stop METHYLPREDNISOLONE 56122027318 No Long er Active Perez Mora MD Active AZITHROMYCIN 250 MG ORAL TABLET 2 po qd x 1 day, then 1 po q d x 4 days AZITHROMYCIN 93729110697 No Longer Active Perez Ambriz MD Active SYMBICORT 160-4.5 MCG/ACT INHALATION AEROSOL 2 puffs bid wit h rinse after BUDESONIDE-FORMOTEROL FUMARATE 54605031816 N o Longer Active Perez Mora MD Active LYRICA 75 MG ORAL CAPSULE TAKE 1 CAPSULE BY MOUTH TWICE DAILY PREGABALIN 40836741267 No Longer Active Carlton Hu MD Acti ve TOPAMAX 25 MG ORAL TABLET 1 qHS x 1 week, then 1 BID x 1 week, then 1 qAM and 2 qHS x 1 week, then 2 BID (migraine prevention) T OPIRAMATE 95659564316 No Longer Active Jerica FUENTES Active TOPAMAX 50 MG ORAL TABLET take 1 tab po BID for migraines. 07/02 TOPIRAMATE 30395782249 No Longer Active Jerica FUENTES Active TOPAMAX 100 MG ORAL TABLET Take 1 tablet po bid TO PIRAMATE 43320158963 Active Carlton Hu MD Active TRIAMCINOLONE ACETONIDE 0.1 % EXTERNAL CREAM apply three roger es daily prn rash TRIAMCINOLONE ACETONIDE 16874255377 No Longer Active Carlton Hu MD Active PAXIL 40 MG ORAL TABLET take 1 tab po qday for depression 0 PAROXETINE HCL 86329097293 Active Carlton Hu MD Active CHERATUSSIN AC 100-10 MG/5ML ORAL SYRUP 5ml po q6hr PRN Cough 20 13/04/14 GUAIFENESIN-CODEINE 80275378685 No Longer Active Carlton Hu MD Active MEDROL 4 MG ORAL TABLET THERAPY PACK 6 tabs on day 1, 5 tabs on day 2, 4 tabs on day 3, 3 tabs on day 4, 2 tabs on day 5, 1 tab on day 6 2013 METHYLPREDNISOLONE 12383093166 No Longer Active Perez Mora MD Active AZITHROMYCIN 250 MG ORAL TABLET 2 po qd x 1 day, then 1 po q d x 4 days AZITHROMYCIN 78453165502 No Longer Active Perez Ambriz MD Active PROPRANOLOL HCL 60 MG ORAL TABLET 1 PO Q D PROPRANOLOL HCL 68946652300 No Longer Active Perez Mora MD Activ e CHERATUSSIN AC 100-10 MG/5ML ORAL SYRUP take one tsp po Q 6h ours prn cough GUAIFENESIN-CODEINE 06110139235 No Longer Active Zia Mora MD Active AUGMENTIN 875-125 MG ORAL TABLET 1 tab by mouth twice daily with food AMOXICILLIN-POT CLAVULANATE 85510801638 No Longer Act nael Perez Mora MD Active CHERATUSSIN AC 100-10 MG/5ML ORAL SYRUP 1 tsp by mouth every 4 hours as needed for cough GUAIFENESIN-CODEINE 39152843214 No Longe r Active Hugo Restrepo MD Active ACETAMINOPHEN-CODEINE #3 300-30 MG ORAL TABLET 1 PO Q 4-[address] PAIN ACETAMINOPHEN-CODEINE 87888457717 No Longer Active Hugo Restrepo MD Active LEVAQUIN 500 MG ORAL TABLET take one po QD LEVO FLOXACIN 95228240719 No Longer Active Griffin HERNANDEZ Active PREDNISONE 20 MG ORAL TABLET Take 3 tabs daily for 3 d ays, 2 tabs daily for 3 days, 1 tab daily for 3 days, 1/2 tab daily for 3 days 11/07 PREDNISONE 57097531319 No Longer Active Carlton Hu MD Acti ve AVELOX 400 MG ORAL TABLET 1 tab by mouth daily MOXIFLOXACIN HCL 81325757292 No Longer Active Carlton Hu MD Active CHERATUSSIN AC 100-10 MG/5ML ORAL SYRUP 1 tsp by mouth every 4 hours as needed for cough GUAIFENESIN-CODEINE 16953844721 No Longe r Active Hugo Restrepo MD Active AVELOX 400 MG ORAL TABLET 1 tab by mouth daily MOXIFLOXACIN HCL 10657218059 No Longer Active Marcy De La Rosa MD PhD Active TERBINAFINE HCL 250 MG ORAL TABLET 1 qDay T ERBINAFINE HCL 35146504860 No Longer Active Marcy De La Rosa MD PhD Active CHERATUSSIN AC 100-10 MG/5ML ORAL SYRUP 1 tsp by mouth every 4 hours as needed for cough GUAIFENESIN-CODEINE 50179657193 No Longe r Active Marcy De La Rosa MD PhD Active AVELOX 400 MG ORAL TABLET 1 tab by mouth daily MOXIFLOXACIN HCL 39551058106 No Longer Active Marcy De La Rosa MD PhD Active HYDROCODONE-ACETAMINOPHEN 5-325 MG ORAL TABLET 1 po q 6hr PRN co ugh HYDROCODONE-ACETAMINOPHEN 30697776815 No Longer Active Marcy De La Rosa MD PhD Active PREDNISONE 20 MG ORAL TABLET 2 tabs daily for 3 days, 1 tab daily for 3 days, 1/2 tab daily for 2 days PREDNISONE 07023214144 No Longer Active Carlton Hu MD Active CEFDINIR 300 MG ORAL CAPSULE by mouth twice a day 2011 CEFDINIR 15980423562 No Longer Active Carlton Hu MD Acti ve HYDROCHLOROTHIAZIDE 25 MG ORAL TABLET 1 TAB PO DAILY HYDROCHLOROTHIAZIDE 35324268043 Active Carlton Hu MD A ctive ACETAMINOPHEN-CODEINE #3 300-30 MG ORAL TABLET 1 tablet po q 4-6 hrs prn pain ACETAMINOPHEN-CODEINE 93021450225 No Longer Active Ridge Bess DO Active ZITHROMAX 250 MG ORAL TABLET 2 po today, then 1 po q days 2-5 20 03/07/07 AZITHROMYCIN 11457284615 No Longer Active Carlton Hu MD Active CHERATUSSIN AC 100-10 MG/5ML ORAL SYRUP take 1 tsp po q4-6 h ours prn cough GUAIFENESIN-CODEINE 12753937034 No Longer Active Jayden Hu MD Active ACETAMINOPHEN-CODEINE #3 300-30 MG ORAL TABLET 1 PO Q 4-6 HR PRN PAIN ACETAMINOPHEN-CODEINE 08947616556 No Longer Active Arnol Hu MD Active LORTAB 7.5-500 MG/15ML ORAL ELIXIR 7.5 ml po q 4 hour prn cough HYDROCODONE-ACETAMINOPHEN 41990808113 No Longer Active Carlton Hu MD Active PREDNISONE 20 MG ORAL TABLET 1 po bid 3 days, then 1 po q day 3 days PREDNISONE 66465147391 No Longer Active Carlton Hu MD Active CEFDINIR 300 MG ORAL CAPSULE by mouth twice a day 2011 CEFDINIR 99139798319 No Longer Active Carlton Hu MD Acti ve CEFDINIR 300 MG ORAL CAPSULE by mouth twice a day 2010 CEFDINIR 28734792629 No Longer Active Carlton Hu MD Acti ve CEFDINIR 300 MG ORAL CAPSULE by mouth twice a day 2010 CEFDINIR 81253862824 No Longer Active Carlton Hu MD Acti ve TESSALON PERLES 100 MG ORAL CAPSULE 1 tablet by mouth 3 times daily as needed for cough BENZONATATE 41451590154 No Longer Active Carlton Hu MD Active CEFDINIR 300 MG ORAL CAPSULE by mouth twice a day 2010 CEFDINIR 49666999841 No Longer Active Carlton Hu MD Acti ve ZITHROMAX Z-REYNA 250 MG ORAL TABLET 2 today, then 1 daily for 4 d ays AZITHROMYCIN 37955260726 No Longer Active Hugo Restrepo MD Active TESSALON PERLES 100 MG ORAL CAPSULE 1 tablet by mouth 3 times daily as needed for cough TESSALON PERLES 100 MG ORAL CAPSULE 39019 7 BENZONATATE Inactive PREDNISONE 20 MG ORAL TABLET 1 po bid 3 days, then 1 po q day 3 days PREDNISONE 20 MG ORAL TABLET 040181 PREDNISONE Greer ctive LORTAB 7.5-500 MG/15ML ORAL [...] cough CHERATUSSIN AC 100-10 MG/5ML ORAL SYRUP 382967 GUAIFENESIN-CODEINE Inactive ACETAMINOPHEN-CODEINE #3 300-30 MG ORAL TABLET 1 tablet po q 4-6 hrs prn pain ACETAMINOPHEN-CODEINE #3 300-30 MG ORAL TABLET ACETAMINOPHEN-CODEINE Inactive HYDROCODONE-ACETAMINOPHEN 5-325 MG ORAL TABLET 1 po q 6hr PRN co ugh HYDROCODONE-ACETAMINOPHEN 5-325 MG ORAL TABLET 079830 HYDROCODONE-ACETAMINOPHEN Inactive AVELOX 400 MG ORAL TABLET 1 tab by mouth daily AVELOX 400 MG ORAL TABLET 855529 MOXIFLOXACIN HCL Inactive CHERATUSSIN AC 100-10 MG/5ML ORAL SYRUP 1 tsp by mouth every 4 hours as needed for cough CHERATUSSIN AC 100-10 MG/5ML ORAL SYRUP 9 17779 GUAIFENESIN-CODEINE Inactive TERBINAFINE HCL 250 MG ORAL TABLET 1 qDay 07/08 TERBINAFINE HCL 250 MG ORAL TABLET 656519 TERBINAFINE HCL Inactive CHERATUSSIN AC 100-10 MG/5ML ORAL SYRUP 1 tsp by mouth every 4 hours as needed for cough CHERATUSSIN AC 100-10 MG/5ML ORAL SYRUP 9 38254 GUAIFENESIN-CODEINE Inactive ACETAMINOPHEN-CODEINE #3 300-30 MG ORAL TABLET 1 PO Q 4-[address] N PAIN ACETAMINOPHEN-CODEINE #3 300-30 MG ORAL TABLET ACETAMINOPHEN-CODEINE Inactive CHERATUSSIN AC 100-10 MG/5ML ORAL SYRUP 1 tsp by mouth every 4 hours as needed for cough CHERATUSSIN AC 100-10 MG/5ML ORAL SYRUP 9 91053 GUAIFENESIN-CODEINE Inactive AUGMENTIN 875-125 MG ORAL TABLET 1 tab by mouth twice daily with food AUGMENTIN 875-125 MG ORAL TABLET 169376 AMOXICIL MADELINE-POT CLAVULANATE Inactive CHERATUSSIN AC 100-10 MG/5ML ORAL SYRUP take one tsp po Q 6h ours prn cough CHERATUSSIN AC 100-10 MG/5ML ORAL SYRUP 429172 GUAIFENESIN-CODEINE Inactive PROPRANOLOL HCL 60 MG ORAL TABLET 1 PO Q D PROPRANOLOL HCL 60 MG ORAL TABLET 537858 PROPRANOLOL HCL Inactive TOPAMAX 50 MG ORAL TABLET take 1 tab po BID for migraines. 07/02 TOPAMAX 50 MG ORAL TABLET 690415 TOPIRAMATE Inacti ve TOPAMAX 25 MG ORAL TABLET 1 qHS x 1 week, then 1 BID x 1 week, then 1 qAM and 2 qHS x 1 week, then 2 BID (migraine prevention) TOPAMAX 25 MG ORAL TABLET 810604 TOPIRAMATE Inactive LYRICA 75 MG ORAL CAPSULE TAKE 1 CAPSULE BY MOUTH TWICE DAILY LYRICA 75 MG ORAL CAPSULE PREGABALIN Inactive SYMBICORT 160-4.5 MCG/ACT INHALATION AEROSOL 2 puffs bid wit h rinse after SYMBICORT 160-4.5 MCG/ACT INHALATION AEROSOL BUDESONIDE- FORMOTEROL FUMARATE Inactive PROMETHAZINE-CODEINE 6.25-10 MG/5ML ORAL SYRUP 1 tsp b y mouth every 8 hours prn cough PROMETHAZINE-CODEINE 6.25-10 MG/ 5ML ORAL SYRUP 130799 PROMETHAZINE-CODEINE Inactive CYMBALTA 30 MG ORAL CAPSULE DELAYED RELEASE PARTICLES 1 cap by mouth daily CYMBALTA 30 MG ORAL CAPSULE DELAYED RELE ASE PARTICLES 203130 DULOXETINE HCL Inactive PREMARIN 0.625 MG ORAL TABLET TAKE 1 TAB BY MOUTH DAILY PREMARIN 0.625 MG ORAL TABLET ESTROGENS CONJUGATED Inactive CHERATUSSIN AC 100-10 MG/5ML ORAL SYRUP 1 tsp by mouth every 4 hours as needed for cough CHERATUSSIN AC 100-10 MG/5ML ORAL SYRUP 9 95122 GUAIFENESIN-CODEINE Inactive PROMETHAZINE-CODEINE 6.25-10 MG/5ML ORAL SYRUP 1 tsp b y mouth every 6 hours if needed for cough PROMETHAZINE-CODEINE 6.25-10 MG/5ML ORAL SYRUP 873210 PROMETHAZINE-CODEINE Inactive CHERATUSSIN AC 100-10 MG/5ML ORAL SYRUP 1 tsp by mouth every 4 hours as needed for cough CHERATUSSIN AC 100-10 MG/5ML ORAL SYRUP 9 60436 GUAIFENESIN-CODEINE Inactive FLUTICASONE PROPIONATE 50 MCG/ACT NASAL SUSPENSION 1 t o 2 sprays each nostril daily FLUTICASONE PROPIONATE 50 MCG/AC T NASAL SUSPENSION 5585200 FLUTICASONE PROPIONATE Inactive PREDNISONE 20 MG ORAL TABLET 3 tab PO qd x 2d, 2 tab P O qd x 2d, 1 tab PO qd x 2d, 1/2 tab PO qd x 2d PREDNISONE 20 MG ORAL TAB LET 628827 PREDNISONE Inactive LEVOFLOXACIN 500 MG ORAL TABLET 1 tab PO daily x 10 days LEVOFLOXACIN 500 MG ORAL TABLET 464323 LEVOFLOXACIN Inactive CYCLOBENZAPRINE HCL 10 MG ORAL TABLET 1 tablet by mouth BID prn had pain CYCLOBENZAPRINE HCL 10 MG ORAL TABLET 582043 CYCLOBENZAPRINE HCL Inactive ZOCOR 40 MG ORAL TABLET 1 tab by mouth daily 4 ZOCOR 40 MG ORAL TABLET 775690 SIMVASTATIN Inactive TUSSIONEX PENNKINETIC ER 10-8 MG/5ML [...] FLUTICASONE PROPIO EFE 50 MCG/ACT NASAL SUSPENSION 5749339 FLUTICASONE PROPIONATE Inactive TUSSIONEX PENNKINETIC ER 10-8 [...] three days PREDNISONE 20 MG ORAL TABLET 241122 PREDNIS ONE Inactive PROAIR HFA 108 (90 BASE) MCG/ACT INHALATION AEROSOL SO LUTION 2 puffs four times a day as needed PROAIR HFA 108 (90 B ASE) MCG/ACT INHALATION AEROSOL SOLUTION ALBUTEROL SULFATE Inactive ZITHROMAX Z-REYNA 250 MG ORAL TABLET 2 today, then 1 daily for 4 d ays ZITHROMAX Z-REYNA 250 MG ORAL TABLET 800458 AZITHROMYCIN Inactive CEFDINIR 300 MG ORAL CAPSULE by mouth twice a day 2010 CEFDINIR 300 MG ORAL CAPSULE 829195 CEFDINIR Inactive CEFDINIR 300 MG ORAL CAPSULE [...] 2-5 03/07/07 ZITHROMAX 250 MG ORAL TABLET 930180 AZITHROMYCIN [place] ctive CEFDINIR 300 MG ORAL CAPSULE by mouth twice a day 2011 CEFDINIR 300 MG ORAL CAPSULE 20020704 CEFDINIR Inactive PREDNISONE 20 MG ORAL TABLET 2 tabs daily for 3 days, 1 tab daily for 3 days, 1/2 tab daily for 2 days PREDNISONE 20 MG ORAL T ABLET 842713 PREDNISONE Inactive AVELOX 400 MG ORAL TABLET 1 tab by mouth daily AVELOX 400 MG ORAL TABLET 721385 MOXIFLOXACIN HCL Inactive AVELOX 400 MG ORAL TABLET 1 tab by mouth daily AVELOX 400 MG ORAL TABLET 859704 MOXIFLOXACIN HCL Inactive PREDNISONE 20 MG ORAL TABLET Take 3 tabs daily for 3 d ays, 2 tabs daily for 3 days, 1 tab daily for 3 days, 1/2 tab daily for 3 days 11/07 PREDNISONE 20 MG ORAL TABLET 096965 PREDNISONE Inactive LEVAQUIN 500 MG ORAL TABLET take one po QD LEVAQUIN 500 MG ORAL TABLET 140824 LEVOFLOXACIN Inactive AZITHROMYCIN 250 MG ORAL TABLET 2 po qd x 1 day, then 1 po q d x 4 days AZITHROMYCIN 250 MG ORAL TABLET 466821 AZITHROMY GIOVANNI Inactive MEDROL 4 MG ORAL TABLET THERAPY PACK 6 tabs on day 1, 5 tabs on day 2, 4 tabs on day 3, 3 tabs on day 4, 2 tabs on day 5, 1 tab on day 6 2013 MEDROL 4 MG ORAL TABLET THERAPY PACK 503424 METHYLPREDNISOLONE Greer ctive CHERATUSSIN AC 100-10 MG/5ML ORAL SYRUP 5ml po q6hr PRN Cough 20 13/04/14 CHERATUSSIN AC 100-10 MG/5ML ORAL SYRUP 153690 GUAIFENE SIN-CODEINE Inactive TRIAMCINOLONE ACETONIDE 0.1 % EXTERNAL CREAM apply three roger es daily prn rash TRIAMCINOLONE ACETONIDE 0.1 % EXTERNAL CREAM 101 4314 TRIAMCINOLONE ACETONIDE Inactive AZITHROMYCIN 250 MG ORAL TABLET 2 po qd x 1 day, then 1 po q d x 4 days AZITHROMYCIN 250 MG ORAL TABLET 709846 AZITHROMY GIOVANNI Inactive MEDROL 4 MG ORAL TABLET THERAPY PACK 6 pills x 1 day, then 5 pills x 1 day then 4 pills x 1 day, then 3 pills x 1 day, then 2 pills x 1 day, then 1 pill x 1 day, then stop MEDROL 4 MG ORAL TABLET THERAPY PACK 583717 METHYLPREDNISOLONE Inactive AMOXICILLIN 500 MG ORAL CAPSULE 1 tab by mouth 3 times daily x 10 days AMOXICILLIN 500 MG ORAL CAPSULE 564254 AMOXICILL IN Inactive AMOXICILLIN 500 MG ORAL CAPSULE 1 tab by mouth 3 times daily x 10 days AMOXICILLIN 500 MG ORAL CAPSULE 052408 AMOXICILL IN Inactive ZITHROMAX 250 MG ORAL TABLET 2 po today, then 1 po q days 2-5 20 12/08/14 ZITHROMAX 250 MG ORAL TABLET 835315 AZITHROMYCIN Greer ctive AUGMENTIN 875-125 MG ORAL TABLET 1 po BID x 10 days 20 13/01/20 AUGMENTIN 875-125 MG ORAL TABLET 230848 AMOXICILLIN-POT CLAVULANATE Inactive ZITHROMAX Z-REYNA 250 MG ORAL TABLET 2 today, then 1 daily for 4 d ays ZITHROMAX Z-REYNA 250 MG ORAL TABLET 883562 AZITHROMYCIN Inactive ZITHROMAX 250 MG ORAL TABLET 2 po today, then 1 po q days 2-5 20 14/03/21 ZITHROMAX 250 MG ORAL TABLET 899597 AZITHROMYCIN Greer ctive ZITHROMAX Z-REYNA 250 MG ORAL TABLET 2 today, then 1 daily for 4 d ays ZITHROMAX Z-REYNA 250 MG ORAL TABLET 440255 AZITHROMYCIN Inactive CEFDINIR 300 MG ORAL CAPSULE 1 po BID x 10 days 06/21 CEFDINIR 300 MG ORAL CAPSULE 20020704 CEFDINIR Inactive ZITHROMAX 250 MG ORAL TABLET 2 po today, then 1 po q days 2-5 20 13/08/10 ZITHROMAX 250 MG ORAL TABLET 443862 AZITHROMYCIN Greer ctive LEVAQUIN 500 MG ORAL TABLET 1 tablet by mouth daily 13/09/24 LEVAQUIN 500 MG ORAL TABLET 19971102 LEVOFLOXACIN Inactive SINGULAIR 10 MG ORAL TABLET 1 po qday for allergies 20 14/01/12 SINGULAIR 10 MG ORAL TABLET 20010504 MONTELUKAST SODIUM Inactive AMOXICILLIN 500 MG ORAL CAPSULE 2 po BID x 10 days 201 09/29/08 AMOXICILLIN 500 MG ORAL CAPSULE 788834 AMOXICILLIN Inactive PREDNISONE 20 MG ORAL TABLET 2 tabs daily for 3 days, 1 tab daily for 3 days, 1/2 tab daily for 2 days PREDNISONE 20 MG ORAL T ABLET 181589 PREDNISONE Inactive ZITHROMAX Z-REYNA 250 MG ORAL TABLET 2 today, then 1 daily for 4 d ays ZITHROMAX Z-REYNA 250 MG ORAL TABLET 566128 AZITHROMYCIN Inactive PREDNISONE 20 MG ORAL TABLET 2 tabs daily for 3 days, 1 tab daily for 3 days, 1/2 tab daily for 2 days PREDNISONE 20 MG ORAL T ABLET 971120 PREDNISONE Inactive ZITHROMAX 250 MG ORAL TABLET 2 po today, then 1 po q days 2-5 20 14/09/04 ZITHROMAX 250 MG ORAL TABLET 332424 AZITHROMYCIN Greer ctive AMOXICILLIN 500 MG ORAL CAPSULE 1 cap by mouth three times a day AMOXICILLIN 500 MG ORAL CAPSULE 266849 AMOXICILLIN Inactive TERBINAFINE HCL 250 MG ORAL TABLET 1 qDay for nail fungus 7 TERBINAFINE HCL 250 MG ORAL TABLET 798809 TERBINAFINE HCL Inact nael AUGMENTIN 875-125 MG ORAL TABLET 1 po BID x 10 days 16/03/22 AUGMENTIN 875-125 MG ORAL TABLET 143773 AMOXICILLIN-POT CLAVULANATE Inactive PREDNISONE 20 MG ORAL TABLET 2 po qd x 5 days PREDNISONE 20 MG ORAL TABLET 512275 PREDNISONE Inactive Vital Signs Date Name Value [...] 1.00 mg/dL 0.60-1.30 sodium, serum 142 mmol/L 497-622 5920/07/17 potassium, serum 4.2 mmol/L 3.5-5.2 chloride, serum 106 mmol/L 98-107 carbon dioxide, venous blood 29.9 mmol/L 21.0-32 .0 blood glucose 108 mg/dL 65-110 calcium, serum 9.1 mg/dL 8.5-10.1 urea nitrogen, blood 11 mg/dL 7-18 creatinine, serum 0.81 mg/dL 0.60-1.30 sodium, serum 139 mmol/L 865-264 6046/03/19 potassium, serum 3.6 mmol/L 3.5-5.2 chloride, serum 100 mmol/L 98-107 carbon dioxide, venous blood 30.3 mmol/L 21.0-32 .0 blood glucose 101 mg/dL 65-110 calcium, serum 9.4 mg/dL 8.5-10.1 urea nitrogen, blood 10 mg/dL 7-18 creatinine, serum 0.96 mg/dL 0.60-1.30 blood glucose 107 mg/dL 65-110 carbon dioxide, venous blood 30.8 mmol/L 21.0-32 .0 chloride, serum 93 mmol/L 98-107 potassium, serum 2.7 mmol/L 3.5-5.2 sodium, serum 132 mmol/L 136-145 Encounters Code Encounter Date Provider Facility [id number] Level 3 Est. Patient 11:34:49 MANAGER SPA Perez Mora MD [facility] CPT-76597 Level 4 Est. Patient 09:51:32 MANAGER SPA Carlton rich MD [facility] CPT-95222 Level 3 Est. Patient 10:26:00 MANAGER SPA Elise Are ll [facility] CPT-47774 Level 3 Est. Patient 13:35:41 MANAGER SPA Carlton rich MD [facility] CPT-34898 Level 3 Est. Patient 10:03:52 MANAGER SPA Carlton rich MD [facility] CPT-04994 Level 3 Est. Patient 12:17:50 CDT Hugo Restrepo MD -[id number] Level 3 Est. Patient 13:42:38 CDT Elise Are [facility] CPT-55206 Level 3 Est. Patient 13:23:51 CDT Diya cobian [facility] CPT-25344 Level 3 Est. Patient 14:22:19 MANAGER SPA Diya cobian [facility] CPT-17193 Level 3 Est. Patient 10:11:46 CDT Carlton rich MD [facility] CPT-11439 Level 3 Est. Patient 17:29:43 CDT Elise Are [facility] CPT-32960 Level 3 Est. Patient 11:58:06 CDT Elise Are [facility] CPT-20803 Level 4 Est. Patient 14:36:51 CDT Carlton rich MD [facility] CPT-43323 Level 3 Est. Patient 18:16:00 MANAGER SPA Blaine HERNANDEZ [facility] CPT-29582 Level 3 Est. Patient 09:45:49 MANAGER SPA Carlton rich MD [facility] CPT-55338 Level 3 Est. Patient 13:19:20 CDT Carlton rich MD [facility] CPT-69065 Level 3 Est. Patient 13:06:43 CDT Ridge tam DO [facility] CPT-17016 Level 3 Est. Patient 10:03:07 CDT Perez Mora MD [facility]-45832 Level 3 Est. Patient 19:50:35 MANAGER SPA Carlton rich MD [facility]-12869 Level 4 Est. Patient 18:05:01 MANAGER SPA Carlton rich MD [facility]-95941 Level 3 Est. Patient 10:45:55 MANAGER SPA Hugo Restrepo MD [facility]-75599 Level 3 Est. Patient 14:12:49 CDT Griffin HERNANDEZ [facility]-88345 Level 3 Est. Patient 17:37:24 CDT Carlton rich MD [facility]-77632 Level 3 Est. Patient 16:51:54 CDT Carlton rich MD [facility]-50936 Level 3 Est. Patient 12:18:11 CDT Hugo Restrepo MD [facility]-77834 Level 3 Est. Patient 11:30:25 CDT Marcy crisostomo MD PhD [facility]-34658 Level 3 Est. Patient 12:00:47 MANAGER SPA Carlton rich MD [facility]-26289 Level 3 Est. Patient 16:31:06 MANAGER SPA Carlton rich MD [facility]-58513 Level 3 Est. Patient 16:23:24 MANAGER SPA Ridge tam DO [facility] CPT-12444 Level 3 Est. Patient 12:34:12 CDT Carlton rich MD [facility]-26678 Level 2 Est. Patient 15:43:33 CDT Robi armstrong MD [facility] CPT-06595 Level 4 Est. Patient 14:04:44 CDT Carlton rich MD [facility] CPT-53948 Level 3 Est. Patient 05:47:59 CDT Ridge Jaun Celeste tam DO [facility] CPT-69456 Level 3 Est. Patient 13:12:53 MANAGER SPA Carlton rich MD [facility] CPT-86108 Level 3 Est. Patient 14:26:53 CDT Hugo [...] CPT-J1100 Decadron 6mg (Dexamethasone) 14:32:13 CDT 2 CPT-91310 Hip bilat min 2V w AP pelvis 13:16:20 CDT 2 CPT-21450 Pelvis only 13:07:33 CDT CPT-24181 Spec Collection and Handling Fee 11:25:12 C DT CPT-52365 Fluzone Quadrivalent Intramuscular Suspe nsion 0.5 ML 14:31:55 CDT CPT-66212 Abx/Therapy Injection 13:28:47 MANAGER SPA CPT-J2930 Solu Medrol 125 mg (Methyl Prednisolone Sodium Succinate) 12:00:47 MANAGER SPA CPT-99427 Venipuncture Draw Fee 11:33:31 CDT CPT-18037 EKG Trac and Interp 11:21:09 CDT CPT-79977 Chest 2V Frontal and Lat 11:21:09 CDT 12/15 CPT-09513 Venipuncture Draw Fee 08:02:34 CDT CPT-06175 Chest 2V Frontal and Lat 05:47:59 CDT 06/05
--- OUTSIDE RECORDS SUMMARY | 2019-10-08 08:23 | XMS REPORT | Clinical Summary ---
Author Author Caitlin, Julinaa Martinez Organization [facility] Address Unknown Phone Unavailable Allergies, Adverse Reactions, Alerts Allergy Name Reaction Description Start Date Severity Status Pr ovider No Known Allergies Mercy Santos LPN Conditions or Problems Problem Name Problem Code Onset Date Status Entry Date Provider Comment Standard Description Annotate BRONCHITIS 490 Inactive Hguo Restrepo MD Bronchitis, not specified as acute [...] sites Sinusitis 473.9 Active Diya De Guzman [employer] Unspecified sinusitis (chronic) Bronchitis-Acute 466.0 Active Carlton Hu MD Acute bronchitis URI - acute 465.9 Active Elise Whitmore [employer]UCER Acute upper respiratory infections of unspecified site [...] 1 tablet by mouth daily LEV OFLOXACIN [id number] No Longer Active Carlton Hu MD Active FLUTICASONE PROPIONATE 50 MCG/ACT SUSP 2 sprays each n ostril daily for 2 weeks, then 1 spray each nostril daily. FLUTICASONE PRO PIONATE 41962561847 Active Elise Whitmore APRN Active ZITHROMAX 250 MG TAB 2 po today, then 1 po q days 2-5 AZITHROMYCIN 29949187541 No Longer Active Elise Whitmore APRN Acti ve XANAX 0.5 MG TABS one tablet by mouth daily prn anxiety ALPRAZOLAM 68051422258 Active Carlton Hu MD Active CYMBALTA 30 MG CPEP 1 cap by mouth daily for depression DULOXETINE HCL 74125033566 Active Carlton Hu MD Active CEFDINIR 300 MG CAPS 1 po BID x 10 days CEFDINI R 84473757274 No Longer Active Carlton Hu MD Active ZOCOR 40 MG TAB 1 tab by mouth daily SIMVASTATI N 07504268976 No Longer Active Carlton Hu MD Active CYCLOBENZAPRINE HCL 10 MG TABS 1 tablet by mouth BID prn had cherelle n CYCLOBENZAPRINE HCL 20708690358 No Longer Active Carlton Hu MD Active LEVOFLOXACIN 500 MG ORAL TABS 1 tab PO daily x 10 days LEVOFLOXACIN 26367340656 No Longer Active Carlton Hu MD Acti ve PREDNISONE 20 MG ORAL TABS 3 tab PO qd x 2d, 2 tab PO qd x 2d, 1 tab PO qd x 2d, 1/2 tab PO qd x 2d PREDNISONE 48270844880 No Longer Active Carlton Hu MD Active TUSSIONEX PENNKINETIC ER 10-8 MG/5ML ORAL LQCR 5 mL PO q 12 hrs PRN cough HYDROCOD POLST-CHLORPHEN POLST 41547025263 Active Zo meeks Active FLUTICASONE PROPIONATE 50 MCG/ACT SUSP 1 to 2 sprays each no stril daily FLUTICASONE PROPIONATE 28227117734 No Longer Active T jaz HERNANDEZ Active CHERATUSSIN AC 100-10 MG/5ML SYRP 1 tsp by mouth every 4 hours as needed for cough GUAIFENESIN-CODEINE 72220113554 No Longer Activ e Blaine HERNANDEZ Active PROMETHAZINE-CODEINE 6.25-10 MG/5ML SYRP 1 tsp by mout h every 6 hours if needed for cough PROMETHAZINE-CODEINE 40874710787 No Long er Active Blaine HERNANDEZ Active CHERATUSSIN AC 100-10 MG/5ML SYRP 1 tsp by mouth every 4 hours as needed for cough GUAIFENESIN-CODEINE 97287677956 No Longer Activ e Blaine HERNANDEZ Active ZITHROMAX Z-REYNA 250 MG TABS 2 today, then 1 daily for 4 days 201 08/30/03 AZITHROMYCIN 26935807928 No Longer Active Columba Raida Act nael ZITHROMAX 250 MG TAB 2 po today, then 1 po q days 2-5 AZITHROMYCIN 03104741846 No Longer Active Carlton Hu MD Acti ve ZITHROMAX Z-REYNA 250 MG TABS 2 today, then 1 daily for 4 days 201 08/07/20 AZITHROMYCIN 39331750171 No Longer Active Columba Raida Act nael AUGMENTIN 875-125 MG TAB 1 po BID x 10 days AMOXICILLIN- POT CLAVULANATE 72563588674 No Longer Active Diya De Guzman APRN Active ZITHROMAX 250 MG TAB 2 po today, then 1 po q days 2-5 AZITHROMYCIN 50349817714 No Longer Active Carlton Hu MD Acti ve TRAMADOL HCL 50 MG TABS 1 po tid with ES Tylenol TRAMADOL HCL 65704994006 Active Carlton Hu MD Active PREMARIN 0.625 MG TABS TAKE 1 TAB BY MOUTH DAILY 07/25 ESTROGENS CONJUGATED 11214242107 No Longer Active Ridge Bess DO Active CYMBALTA 30 MG CPEP 1 cap by mouth daily DULOXE SNEHA HCL 69365792380 No Longer Active Ridge Bess DO Active AMOXICILLIN 500 MG CAP 1 tab by mouth 3 times daily x 10 days 20 14/04/28 AMOXICILLIN 97612924829 No Longer Active Carlton Hu MD Active AMOXICILLIN 500 MG CAP 1 tab by mouth 3 times daily x 10 days 20 13/03/08 AMOXICILLIN 11706270658 No Longer Active Carlton Hu MD Active PROMETHAZINE-CODEINE 6.25-10 MG/5ML SYRP 1 tsp by mouth ever y 8 hours prn cough PROMETHAZINE-CODEINE 89115393976 No Longer Active Robert Hu MD Active MEDROL (REYNA) 4 MG TABS 6 pills x 1 day, then 5 pill s x 1 day then 4 pills x 1 day, then 3 pills x 1 day, then 2 pills x 1 day, then 1 pill x 1 day, then stop METHYLPREDNISOLONE 35910490836 No Longer Active Parris Mora MD Active AZITHROMYCIN 250 MG TABS 2 po qd x 1 day, then 1 po qd x 4 days AZITHROMYCIN 57895935207 No Longer Active Perez Mora MD Active SYMBICORT 160-4.5 MCG/ACT AERO 2 puffs bid with rinse after 2011 BUDESONIDE-FORMOTEROL FUMARATE 63455313275 No Longer Active Perez Mora MD Active LYRICA 75 MG CAPS TAKE 1 CAPSULE BY MOUTH TWICE DAILY 2013 PREGABALIN 28268636726 No Longer Active Carlton Hu MD Active LYRICA 100 MG CAPS Take 1 tab po BID for fibromyalgia PREGABALIN 02442810508 Active Elise Whitmore APRN Active TOPAMAX 25 MG TABS 1 qHS x 1 week, then 1 BID x 1 week, then 1 qAM and 2 qHS x 1 week, then 2 BID (migraine prevention) TOPIRAMAT E 03819470918 No Longer Active Jerica Farnaz FUENTES Active TOPAMAX 50 MG TABS take 1 tab po BID for migraines. 12/07/10 TOPIRAMATE 96125826582 No Longer Active Jerica Jonesema AGUILARA Ac tive TOPAMAX 100 MG TABS Take 1 tablet po bid TOPIRAMATE 4999 3831341 Active Carlton Hu MD Active TRIAMCINOLONE ACETONIDE 0.1 % CREA apply three times daily prn r beatrice TRIAMCINOLONE ACETONIDE 62630630779 No Longer Active Carlton Hu MD Active PAXIL 40 MG TAB take 1 tab po qday for depression PAROXETINE HCL 42465312568 Active Elise Whitmore [employer]ER Active CHERATUSSIN AC 100-10 MG/5ML SYRP 5ml po q6hr PRN Cough GUAIFENESIN-CODEINE 21680437358 No Longer Active Carlton Hu MD Active MEDROL (REYNA) 4 MG TABS 6 tabs on day 1, 5 tabs on d ay 2, 4 tabs on day 3, 3 tabs on day 4, 2 tabs on day 5, 1 tab on day 6 METHYLPREDNISOLONE 44947481413 No Longer Active Perez Mora MD Active AZITHROMYCIN 250 MG TABS 2 po qd x 1 day, then 1 po qd x 4 days AZITHROMYCIN 33921248312 No Longer Active Perez Mora MD Active PROPRANOLOL HCL 60 MG TABS 1 PO Q D PROPRANOL OL HCL 68126583302 No Longer Active Perez Mora MD Active CHERATUSSIN AC 100-10 MG/5ML SYRP take one tsp po Q 6hours prn c ough GUAIFENESIN-CODEINE 09835501613 No Longer Active Perez Means Active AUGMENTIN 875-125 MG TAB 1 tab by mouth twice daily with food 20 12/03/31 AMOXICILLIN-POT CLAVULANATE 10895681350 No Longer Active Chanel Mora MD Active CHERATUSSIN AC 100-10 MG/5ML SYRP 1 tsp by mouth every 4 hours as needed for cough GUAIFENESIN-CODEINE 13727661780 No Longer Activ e Hugo Restrepo MD Active ACETAMINOPHEN-CODEINE #3 300-30 MG TABS 1 PO Q 4-6 HRS PRN PAIN ACETAMINOPHEN-CODEINE 69872440868 No Longer Active Hugo Restrepo MD Active LEVAQUIN 500 MG TABS take one po QD LEVOFLOXACI N 46873540059 No Longer Active Griffin HERNANDEZ Active PREDNISONE 20 MG TAB Take 3 tabs daily for 3 days , 2 tabs daily for 3 days, 1 tab daily for 3 days, 1/2 tab daily for 3 days P REDNISONE 76211127582 No Longer Active Carlton Hu MD Active AVELOX 400 MG TABS 1 tab by mouth daily MOXIFLO XACIN HCL 12854137291 No Longer Active Carlton Hu MD Active CHERATUSSIN AC 100-10 MG/5ML SYRP 1 tsp by mouth every 4 hours as needed for cough GUAIFENESIN-CODEINE 95040474997 No Longer Activ e Hugo Restrepo MD Active AVELOX 400 MG TABS 1 tab by mouth daily MOXIFLO XACIN HCL 19083715166 No Longer Active Marcy De La Rosa MD PhD Active TERBINAFINE HCL 250 MG TABS 1 qDay TERBINAF INE HCL 51328521905 No Longer Active Marcy De La Rosa MD PhD Active CHERATUSSIN AC 100-10 MG/5ML SYRP 1 tsp by mouth every 4 hours as needed for cough GUAIFENESIN-CODEINE 00094300135 No Longer Activ e Marcy De La Rosa MD PhD Active AVELOX 400 MG TABS 1 tab by mouth daily MOXIFLO XACIN HCL 84432725599 No Longer Active Marcy De La Rosa MD PhD Active HYDROCODONE-ACETAMINOPHEN 5-325 MG TABS 1 po q 6hr PRN cough 201 05/09/16 HYDROCODONE-ACETAMINOPHEN 93679009553 No Longer Active Marcy De La Rosa MD PhD Active PREDNISONE 20 MG TAB 2 tabs daily for 3 days, 1 t ab daily for 3 days, 1/2 tab daily for 2 days PREDNISONE 47051831215 No Longer Active Carlton Hu MD Active CEFDINIR 300 MG CAPS by mouth twice a day CEFDI ODILIA 19686600999 No Longer Active Carlton Hu MD Active HYDROCHLOROTHIAZIDE 25 MG TABS 1 TAB PO DAILY H YDROCHLOROTHIAZIDE 96771165283 Active Carlton Hu MD Active ACETAMINOPHEN-CODEINE #3 300-30 MG TABS 1 tablet po q 4-6hrs prn pain ACETAMINOPHEN-CODEINE 99422842607 No Longer Active Ridge Bess DO Active ZITHROMAX 250 MG TAB 2 po today, then 1 po q days 2-5 AZITHROMYCIN 04904029309 No Longer Active Carlton Hu MD Acti ve CHERATUSSIN AC 100-10 MG/5ML SYRP take 1 tsp po q4-6 hours prn c ough GUAIFENESIN-CODEINE 40417382715 No Longer Active Carlton Hu MD Active ACETAMINOPHEN-CODEINE #3 300-30 MG TABS 1 PO Q 4-6 HR PRN PAIN 2 ACETAMINOPHEN-CODEINE 46560760379 No Longer Active Carlton rich MD Active LORTAB 7.5-500 MG/15ML ELIX 7.5 ml po q 4 hour prn cough HYDROCODONE-ACETAMINOPHEN 29420485671 No Longer Active Carlton Hu MD Active PREDNISONE 20 MG TAB 1 po bid 3 days, then 1 po q day 3 days 201 05/03/07 PREDNISONE 44633455130 No Longer Active Carlton Hu MD Active ELMIRON 100 MG CAPS 2 tablets in the am and 1 tablet at hs PENTOSAN POLYSULFATE SODIUM 83644536775 Active Carlton Hu MD Ac tive CEFDINIR 300 MG CAPS by mouth twice a day CEFDI ODILIA 28146592530 No Longer Active Carlton Hu MD Active CEFDINIR 300 MG CAPS by mouth twice a day CEFDI ODILIA 12669585603 No Longer Active Carlton Hu MD Active CEFDINIR 300 MG CAPS by mouth twice a day CEFDI ODILIA 65939498465 No Longer Active Carlton Hu MD Active TESSALON PERLES 100 MG CAP 1 tablet by mouth 3 times daily a s needed for cough BENZONATATE 09704209162 No Longer Active Carlton bustamante MD Active CEFDINIR 300 MG CAPS by mouth twice a day CEFDI ODILIA 46289072539 No Longer Active Carlton Hu MD Active ZITHROMAX Z-REYNA 250 MG TABS 2 today, then 1 daily for 4 days 201 04/09/17 AZITHROMYCIN 31173115123 No Longer Active Hugo Restrepo MD Active TESSALON PERLES 100 MG CAP 1 tablet by mouth 3 times daily a s needed for cough TESSALON PERLES 100 MG CAP 122206 BENZONATATE I nactive PREDNISONE 20 MG TAB 1 po bid 3 days, then 1 po q day 3 days 201 05/03/07 PREDNISONE 20 MG TAB 164364 PREDNISONE Inactive LORTAB 7.5-500 MG/15ML ELIX 7.5 ml po q 4 hour prn cough LORTAB 7.5-500 MG/15ML ELIX HYDROCODONE-ACETAMINOPHEN Inacti ve ACETAMINOPHEN-CODEINE #3 300-30 MG TABS 1 PO Q 4-6 HR PRN PAIN 2 ACETAMINOPHEN-CODEINE #3 300-30 MG TABS 691829 ACETAMIN OPHEN-CODEINE Inactive CHERATUSSIN AC 100-10 MG/5ML SYRP take 1 tsp po q4-6 hours prn c ough CHERATUSSIN AC 100-10 MG/5ML SYRP 872028 GUAIFENESIN-CO DEINE Inactive ACETAMINOPHEN-CODEINE #3 300-30 MG TABS 1 tablet po q 4-6hrs prn pain ACETAMINOPHEN-CODEINE #3 300-30 MG TABS 946021 ACETAMIN OPHEN-CODEINE Inactive HYDROCODONE-ACETAMINOPHEN 5-325 MG TABS 1 po q 6hr PRN cough 201 05/09/16 HYDROCODONE-ACETAMINOPHEN 5-325 MG TABS 285443 HYDROCODONE-ACETAMINOPHEN Inactive AVELOX 400 MG TABS 1 tab by mouth daily A VELOX 400 MG TABS 567327 MOXIFLOXACIN HCL Inactive CHERATUSSIN AC 100-10 MG/5ML SYRP 1 tsp by mouth every 4 hours as needed for cough CHERATUSSIN AC 100-10 MG/5ML SYRP 706332 GUAIFENESIN-CODEINE Inactive TERBINAFINE HCL 250 MG TABS 1 qDay TERBINAFINE HCL 250 MG TABS 591924 TERBINAFINE HCL Inactive CHERATUSSIN AC 100-10 MG/5ML SYRP 1 tsp by mouth every 4 hours as needed for cough CHERATUSSIN AC 100-10 MG/5ML SYRP 200715 GUAIFENESIN-CODEINE Inactive ACETAMINOPHEN-CODEINE #3 300-30 MG TABS 1 PO Q 4-6 HRS PRN PAIN ACETAMINOPHEN-CODEINE #3 300-30 MG TABS 556753 ACETAMINOPHEN-CODEIN E Inactive CHERATUSSIN AC 100-10 MG/5ML SYRP 1 tsp by mouth every 4 hours as needed for cough CHERATUSSIN AC 100-10 MG/5ML SYRP 637818 GUAIFENESIN-CODEINE Inactive AUGMENTIN 875-125 MG TAB 1 tab by mouth twice daily with food 20 12/03/31 AUGMENTIN 875-125 MG TAB 313507 AMOXICILLIN-POT CLAVULA EFE Inactive CHERATUSSIN AC 100-10 MG/5ML SYRP take one tsp po Q 6hours prn c ough CHERATUSSIN AC 100-10 MG/5ML SYRP 047332 GUAIFENESIN-CO DEINE Inactive PROPRANOLOL HCL 60 MG TABS 1 PO Q D P ROPRANOLOL HCL 60 MG TABS 407966 PROPRANOLOL HCL Inactive TOPAMAX 50 MG TABS take 1 tab po BID for migraines. 12/07/10 TOPAMAX 50 MG TABS 535301 TOPIRAMATE Inactive TOPAMAX 25 MG TABS 1 qHS x 1 week, then 1 BID x 1 week, then 1 qAM and 2 qHS x 1 week, then 2 BID (migraine prevention) TOPAMAX 2 5 MG TABS 220971 TOPIRAMATE Inactive LYRICA 75 MG CAPS TAKE 1 CAPSULE BY MOUTH TWICE DAILY LYRICA 75 MG CAPS PREGABALIN Inactive SYMBICORT 160-4.5 MCG/ACT AERO 2 puffs bid with rinse after 2011 SYMBICORT 160-4.5 MCG/ACT AERO BUDESONIDE-FORMOT SÁNCHEZ FUMARATE Inactive PROMETHAZINE-CODEINE 6.25-10 MG/5ML SYRP 1 tsp by mouth ever y 8 hours prn cough PROMETHAZINE-CODEINE 6.25-10 MG/5ML SYRP 325244 PROMETHAZINE-CODEINE Inactive CYMBALTA 30 MG CPEP 1 cap by mouth daily CYMBALTA 30 MG CPEP 063942 DULOXETINE HCL Inactive PREMARIN 0.625 MG TABS TAKE 1 TAB BY MOUTH DAILY 07/25 PREMARIN 0.625 MG TABS ESTROGENS CONJUGATED Inactive CHERATUSSIN AC 100-10 MG/5ML SYRP 1 tsp by mouth every 4 hours as needed for cough CHERATUSSIN AC 100-10 MG/5ML SYRP 094527 GUAIFENESIN-CODEINE Inactive PROMETHAZINE-CODEINE 6.25-10 MG/5ML SYRP 1 tsp by mout h every 6 hours if needed for cough PROMETHAZINE-CODEINE 6.25-10 MG/5ML SYRP 069910 PROMETHAZINE-CODEINE Inactive CHERATUSSIN AC 100-10 MG/5ML SYRP 1 tsp by mouth every 4 hours as needed for cough CHERATUSSIN AC 100-10 MG/5ML SYRP 023779 GUAIFENESIN-CODEINE Inactive FLUTICASONE PROPIONATE 50 MCG/ACT SUSP 1 to 2 sprays each no stril daily FLUTICASONE PROPIONATE 50 MCG/ACT SUSP 715539 FLUTICASONE PROPIONATE Inactive PREDNISONE 20 MG ORAL TABS 3 tab PO qd x 2d, 2 tab PO qd x 2d, 1 tab PO qd x 2d, 1/2 tab PO qd x 2d PREDNISONE 20 MG ORAL TABS 633250 PREDNISONE Inactive LEVOFLOXACIN 500 MG ORAL TABS 1 tab PO daily x 10 days LEVOFLOXACIN 500 MG ORAL TABS 728675 LEVOFLOXACIN Inactive CYCLOBENZAPRINE HCL 10 MG TABS 1 tablet by mouth BID prn had cherelle n CYCLOBENZAPRINE HCL 10 MG TABS 674415 CYCLOBENZAPRINE H CL Inactive ZOCOR 40 MG TAB 1 tab by mouth daily ZOCOR 40 M G TAB 113843 SIMVASTATIN Inactive ZITHROMAX Z-REYNA 250 MG TABS 2 today, then 1 daily for 4 days 201 04/09/17 ZITHROMAX Z-REYNA 250 MG TABS 6483814 AZITHROMYCIN Inac tive CEFDINIR 300 MG CAPS [...] q days 2-5 ZITHROMAX 250 MG TAB 0901133 AZITHROMYCIN Inactive CEFDINIR 300 MG CAPS by mouth twice a day CEFDINIR 300 MG CAPS 20020704 CEFDINIR Inactive PREDNISONE 20 MG TAB 2 tabs daily for 3 days, 1 t ab daily for 3 days, 1/2 tab daily for 2 days PREDNISONE 20 MG TAB 484658 PREDNISON E Inactive AVELOX 400 MG TABS 1 tab by mouth daily A VELOX 400 MG TABS 108471 MOXIFLOXACIN HCL Inactive AVELOX 400 MG TABS 1 tab by mouth daily A VELOX 400 MG TABS 055614 MOXIFLOXACIN HCL Inactive PREDNISONE 20 MG TAB Take 3 tabs daily for 3 days , 2 tabs daily for 3 days, 1 tab daily for 3 days, 1/2 tab daily for 3 days PREDNISONE 20 MG TAB 995794 PREDNISONE Inactive LEVAQUIN 500 MG TABS take one po QD LEVAQUIN 50 0 MG TABS 640382 LEVOFLOXACIN Inactive AZITHROMYCIN 250 MG TABS 2 po qd x 1 day, then 1 po qd x 4 days AZITHROMYCIN 250 MG TABS 1773520 AZITHROMYCIN Inactiv e MEDROL (REYNA) 4 MG TABS 6 tabs on day 1, 5 tabs on d ay 2, 4 tabs on day 3, 3 tabs on day 4, 2 tabs on day 5, 1 tab on day 6 MEDROL (REYNA) 4 MG TABS 298221 METHYLPREDNISOLONE Inactive CHERATUSSIN AC 100-10 MG/5ML SYRP 5ml po q6hr PRN Cough CHERATUSSIN AC 100-10 MG/5ML SYRP 574863 GUAIFENESIN-CODEINE Inacti ve TRIAMCINOLONE ACETONIDE 0.1 % CREA apply three times daily prn r beatrice TRIAMCINOLONE ACETONIDE 0.1 % CREA 5528418 TRIAMCINOLONE ACETONIDE Inactive AZITHROMYCIN 250 MG TABS 2 po qd x 1 day, then 1 po qd x 4 days AZITHROMYCIN 250 MG TABS 1733600 AZITHROMYCIN Inactiv e MEDROL (REYNA) 4 MG TABS 6 pills x 1 day, then 5 pill s x 1 day then 4 pills x 1 day, then 3 pills x 1 day, then 2 pills x 1 day, then 1 pill x 1 day, then stop MEDROL (REYNA) 4 MG TABS 337583 METHYLPREDNISOLONE Inactive AMOXICILLIN 500 MG CAP 1 tab by mouth 3 times daily x 10 days 20 13/03/08 AMOXICILLIN 500 MG CAP 169758 AMOXICILLIN Inactive AMOXICILLIN 500 MG CAP 1 tab by mouth 3 times daily x 10 days 20 14/04/28 AMOXICILLIN 500 MG CAP 187312 AMOXICILLIN Inactive ZITHROMAX 250 MG TAB 2 po today, then 1 po q days 2-5 ZITHROMAX 250 MG TAB 0133485 AZITHROMYCIN Inactive AUGMENTIN 875-125 MG TAB 1 po BID x 10 days AUGMENTIN 875- 125 MG TAB 696440 AMOXICILLIN-POT CLAVULANATE Inactive ZITHROMAX Z-REYNA 250 MG TABS 2 today, then 1 daily for 4 days 201 08/07/20 ZITHROMAX Z-REYNA 250 MG TABS 9682569 AZITHROMYCIN Inac tive ZITHROMAX 250 MG TAB 2 po today, then 1 po q days 2-5 ZITHROMAX 250 MG TAB 5734465 AZITHROMYCIN Inactive ZITHROMAX Z-REYNA 250 MG TABS 2 today, then 1 daily for 4 days 201 08/30/03 ZITHROMAX Z-REYNA 250 MG TABS 7356374 AZITHROMYCIN Inac tive CEFDINIR 300 MG CAPS 1 po BID x 10 days C EFDINIR 300 MG CAPS 515771 CEFDINIR Inactive ZITHROMAX 250 MG TAB 2 po today, then 1 po q days 2-5 ZITHROMAX 250 MG TAB 1678429 AZITHROMYCIN Inactive LEVAQUIN 500 MG TAB 1 tablet by mouth daily LEVAQUIN 500 MG TAB 640991 LEVOFLOXACIN Inactive Vital Signs Date Name Value [...] Measured Encounters Code Encounter Date Provider Facility CPT-02135 Level 3 Est. Patient 10:11:46 CDT Carlton rich MD [facility] CPT-81151 Level 3 Est. Patient 17:29:43 CDT EliseJavier [employer] [facility] CPT-67625 Level 3 Est. Patient 11:58:06 CDT Italo [facility] CPT-03014 Level 4 Est. Patient 14:36:51 CDT Carlton rich MD [facility] CPT-68134 Level 3 Est. Patient 18:16:00 MEDICAL DIRECTOR OF HOSPICE Blaine HERNANDEZ [facility] CPT-95624 Level 3 Est. Patient 09:45:49 MEDICAL DIRECTOR OF HOSPICE Carlton rich MD [facility] CPT-93276 Level 3 Est. Patient 13:19:20 CDT Carlton rich MD [facility] CPT-96295 Level 3 Est. Patient 13:06:43 CDT Ridge tam DO [facility]-63469 Level 3 Est. Patient 10:03:07 CDT Perez Mora MD [facility]-64956 Level 3 Est. Patient 19:50:35 MEDICAL DIRECTOR OF HOSPICE Carlton rich MD [facility]-22731 Level 4 Est. Patient 18:05:01 MEDICAL DIRECTOR OF HOSPICE Carlton rich MD [facility]-69566 Level 3 Est. Patient 10:45:55 MEDICAL DIRECTOR OF HOSPICE Hugo Restrepo MD [facility]-28986 Level 3 Est. Patient 14:12:49 CDT Griffin HERNANDEZ [facility]-47438 Level 3 Est. Patient 17:37:24 CDT Carlton rich MD [facility]-72721 Level 3 Est. Patient 16:51:54 CDT Carlton rich MD [facility]-77118 Level 3 Est. Patient 12:18:11 CDT Hugo Restrepo MD [facility]-10901 Level 3 Est. Patient 11:30:25 CDT Marcy crisostomo MD PhD [facility]-08346 Level 3 Est. Patient 12:00:47 MEDICAL DIRECTOR OF HOSPICE Carlton rich MD [facility]-76735 Level 3 Est. Patient 16:31:06 MEDICAL DIRECTOR OF HOSPICE Carlton rich MD [facility] CPT-11149 Level 3 Est. Patient 16:23:24 MEDICAL DIRECTOR OF HOSPICE Ridge tam DO [facility]-93953 Level 3 Est. Patient 12:34:12 CDT Carlton rich MD [facility]-60904 Level 2 Est. Patient 15:43:33 CDT Robi armstrong MD [facility]-15709 Level 4 Est. Patient 14:04:44 CDT Carlton rich MD [facility] CPT-07158 Level 3 Est. Patient 05:47:59 CDT Ridge Jaun Celeste anel DO [facility] CPT-99677 Level 3 Est. Patient 13:12:53 MEDICAL DIRECTOR OF HOSPICE Carlton rich MD [facility] CPT-08468 Level 3 Est. 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
--- OUTSIDE RECORDS SUMMARY | 2019-10-08 08:23 | XMS REPORT | Clinical Summary ---
Author Author Caitlin, Juliana Martinez Organization [facility] Address Unknown Phone Unavailable Allergies, Adverse [...] mention of hemorrhage) HYPERLIPIDEMIA 272.4 Active Carlton uH MD Other and unspecified hyperlipidemia HEALTH SCREENING [...] po qd x 5 days P REDNISONE [id number] No Longer Active Perez Mora MD Active PROAIR HFA 108 (90 BASE) MCG/ACT INHALATION AEROSOL SO LUTION 2 puffs four times a day as needed ALBUTEROL SULFATE 31721872812 No Long er Active Becky FUENTES Active ASPIRIN 81 MG ORAL TABLET 1 po qd ASPIRIN 11039519994 Active Carlton Hu MD Active PREDNISONE 20 MG ORAL TABLET 1 tab twice daily for 3 d ay, then one daily for three days PREDNISONE 41929786372 No Longer Active Carlton Hu MD Active AUGMENTIN 875-125 MG ORAL TABLET 1 po BID x 10 days 20 16/03/22 AMOXICILLIN-POT CLAVULANATE 78625299411 No Longer Active Elise Garcia APRN Active TERBINAFINE HCL 250 MG ORAL TABLET 1 qDay for nail fungus 7 TERBINAFINE HCL 86737938926 No Longer Active Carlton Hu MD A ctive TUSSIONEX PENNKINETIC ER 10-8 MG/5ML ORAL SUSPENSION E XTENDED RELEASE 5ml po q12hr PRN Cough HYDROCOD POLST-CHLORPHEN POLST 49642507370 Active Perez Mora MD Active AMOXICILLIN 500 MG ORAL CAPSULE 1 cap by mouth three times a day AMOXICILLIN 88480262294 No Longer Active Carlton Hu MD Active ELMIRON 100 MG ORAL CAPSULE 2 tablets in the am and 1 tablet at hs PENTOSAN POLYSULFATE SODIUM 17351335668 No Longer Active Robert Hu MD Active MUCINEX D 60-600 MG ORAL TABLET EXTENDED RELEASE 12 HOUR 1 t ab po q am PSEUDOEPHEDRINE-GUAIFENESIN 11039458749 No Longer Act nael Carlton uH MD Active MUCINEX DM MAXIMUM STRENGTH 60-1200 MG ORAL TABLET EXT ENDED RELEASE 12 HOUR 1 tab po q am DEXTROMETHORPHAN-GUAIFENESIN 19227098223 No Longer Active Carlton Hu MD Active TUSSIONEX PENNKINETIC ER 10-8 MG/5ML ORAL SUSPENSION E XTENDED RELEASE 5ml po q12hr PRN Cough HYDROCOD POLST-CHLORPHEN POLST 5 6048190136 No Longer Active Carlton Hu MD Active POTASSIUM CHLORIDE ER 20 MEQ ORAL TABLET EXTENDED RELE ASE Take 1 by mouth 4 times daily for 7 days POTASSIUM CHLORIDE 29123942665 No Longer Active Carlton Hu MD Active ZITHROMAX 250 MG ORAL TABLET 2 po today, then 1 po q days 2-5 20 14/09/04 AZITHROMYCIN 89048860397 No Longer Active Elise Garcia APRN Active TUSSIONEX PENNKINETIC ER 10-8 MG/5ML ORAL SUSPENSION E XTENDED RELEASE 5 ml twice a day as needed for cough HYDROCOD POLST-CHLORPH EN POLST 16499457737 No Longer Active Elise Garcia APRN Active MONTELUKAST SODIUM 10 MG ORAL TABLET 1 po daily for Allergy MONTELUKAST SODIUM 75108841287 Active Carlton Hu MD Ac tive TUSSIONEX PENNKINETIC ER 10-8 MG/5ML ORAL SUSPENSION E XTENDED RELEASE 5ml po q12hr PRN Cough HYDROCOD POLST-CHLORPHEN POLST 5 3759111677 No Longer Active Hugo Restrepo MD Active GABAPENTIN 100 MG ORAL CAPSULE 1 po BID for fibromyalgia GABAPENTIN 31178867454 Active Carlton Hu MD Active LYRICA 100 MG ORAL CAPSULE Take 1 tab po BID for fibromyalgia 20 11/08/21 PREGABALIN 57231143184 No Longer Active Elise Garcia APRN A ctive PREDNISONE 20 MG ORAL TABLET 2 tabs daily for 3 days, 1 tab daily for 3 days, 1/2 tab daily for 2 days PREDNISONE 07534255862 No Longer Active Diya De Guzman APRN Active TUSSIONEX PENNKINETIC ER 10-8 MG/5ML ORAL SUSPENSION E XTENDED RELEASE 5 mL PO q 12 hrs PRN cough HYDROCOD POLST-CHLORPHEN POLST 785694 54088 No Longer Active Jillina Gege RICEN Active FLUTICASONE PROPIONATE 50 MCG/ACT NASAL SUSPENSION 2 s prays each nostril daily until bottle is empty FLUTICASONE PROPIONATE 867593404 99 No Longer Active Diya De Guzman APRN Active ASMANEX 60 METERED DOSES 220 MCG/INH INHALATION AEROSO L POWDER BREATH ACTIVATED 1 puff bid with rinse after MOMETASONE FUROATE 5145740 4102 No Longer Active Diya De Guzman APRN Active ZITHROMAX Z-REYNA 250 MG ORAL TABLET 2 today, then 1 daily for 4 d ays AZITHROMYCIN 19819873749 No Longer Active Elise Garcia APRN Active TUSSIONEX PENNKINETIC ER 10-8 MG/5ML ORAL SUSPENSION E XTENDED RELEASE 5ml po q12hr PRN Cough HYDROCOD POLST-CHLORPHEN POLST 5 3865600263 No Longer Active Elise Garcia APRN Active PREDNISONE 20 MG ORAL TABLET 2 tabs daily for 3 days, 1 tab daily for 3 days, 1/2 tab daily for 2 days PREDNISONE 15530536291 No Longer Active Diya De Guzman APRN Active AMOXICILLIN 500 MG ORAL CAPSULE 2 po BID x 10 days 201 09/29/08 AMOXICILLIN 28916993981 No Longer Active Diya De Guzman APRN Act nael SINGULAIR 10 MG ORAL TABLET 1 po qday for allergies 20 14/01/12 MONTELUKAST SODIUM 24702672048 No Longer Active Carlton Hu MD Active LEVAQUIN 500 MG ORAL TABLET 1 tablet by mouth daily 20 13/09/24 LEVOFLOXACIN 60155217581 No Longer Active Carlton Hu MD Acti ve FLUTICASONE PROPIONATE 50 MCG/ACT NASAL SUSPENSION 2 s prays each nostril daily for 2 weeks, then 1 spray each nostril daily. FLUTICASONE PROPIONATE 54872602150 Active Elise Garcia APRN Active ZITHROMAX 250 MG ORAL TABLET 2 po today, then 1 po q days 2-5 20 13/08/10 AZITHROMYCIN 86375991934 No Longer Active Elise Garcia APRN Active XANAX 0.5 MG ORAL TABLET one tablet by mouth daily prn anxiety 2015 ALPRAZOLAM 18335378683 Active Carlton uH MD Active CYMBALTA 30 MG ORAL CAPSULE DELAYED RELEASE PARTICLES 1 cap by mouth daily for depression DULOXETINE HCL 53602552729 Active Carlton beltrán MD Active CEFDINIR 300 MG ORAL CAPSULE 1 po BID x 10 days CEFDINIR 45579860052 No Longer Active Carlton Hu MD Active ZOCOR 40 MG ORAL TABLET 1 tab by mouth daily SI MVASTATIN 53801673662 No Longer Active Carlton Hu MD Active CYCLOBENZAPRINE HCL 10 MG ORAL TABLET 1 tablet by mouth BID prn had pain CYCLOBENZAPRINE HCL 77007262297 No Longer Active Jayden Hu MD Active LEVOFLOXACIN 500 MG ORAL TABLET 1 tab PO daily x 10 days LEVOFLOXACIN 12925996138 No Longer Active Carlton Hu MD Acti ve PREDNISONE 20 MG ORAL TABLET 3 tab PO qd x 2d, 2 tab P O qd x 2d, 1 tab PO qd x 2d, 1/2 tab PO qd x 2d PREDNISONE 17593183852 No Lo nger Active Carlton Hu MD Active FLUTICASONE PROPIONATE 50 MCG/ACT NASAL SUSPENSION 1 t o 2 sprays each nostril daily FLUTICASONE PROPIONATE 79688701690 No Longer Ac tive Blaine HERNANDEZ Active CHERATUSSIN AC 100-10 MG/5ML ORAL SYRUP 1 tsp by mouth every 4 hours as needed for cough GUAIFENESIN-CODEINE 16811379601 No Longe r Active Blaine HERNANDEZ Active PROMETHAZINE-CODEINE 6.25-10 MG/5ML ORAL SYRUP 1 tsp b y mouth every 6 hours if needed for cough PROMETHAZINE-CODEINE 21678355496 No Longer Active Blaine HERNANDEZ Active CHERATUSSIN AC 100-10 MG/5ML ORAL SYRUP 1 tsp by mouth every 4 hours as needed for cough GUAIFENESIN-CODEINE 14054626695 No Longe r Active Blaine HERNANDEZ Active ZITHROMAX Z-REYNA 250 MG ORAL TABLET 2 today, then 1 daily for 4 d ays AZITHROMYCIN 02894464487 No Longer Active Columba Raida Act nael ZITHROMAX 250 MG ORAL TABLET 2 po today, then 1 po q days 2-5 20 14/03/21 AZITHROMYCIN 90781291942 No Longer Active Carlton Hu MD Active ZITHROMAX Z-REYNA 250 MG ORAL TABLET 2 today, then 1 daily for 4 d ays AZITHROMYCIN 94282407377 No Longer Active Columba Raida Act nael AUGMENTIN 875-125 MG ORAL TABLET 1 po BID x 10 days 13/01/20 AMOXICILLIN-POT CLAVULANATE 46226140613 No Longer Active Diya De Guzman APRN Active ZITHROMAX 250 MG ORAL TABLET 2 po today, then 1 po q days 2-5 20 12/08/14 AZITHROMYCIN 14818253382 No Longer Active Carlton Hu MD Active TRAMADOL HCL 50 MG ORAL TABLET 1 po tid with ES Tylenol TRAMADOL HCL 22729177176 Active Carlton Hu MD Active PREMARIN 0.625 MG ORAL TABLET TAKE 1 TAB BY MOUTH DAILY ESTROGENS CONJUGATED 09836353196 No Longer Active Ridge Bess DO A ctive CYMBALTA 30 MG ORAL CAPSULE DELAYED RELEASE PARTICLES 1 cap by mouth daily DULOXETINE HCL 29972563344 No Longer Active Ridge tam DO Active AMOXICILLIN 500 MG ORAL CAPSULE 1 tab by mouth 3 times daily x 10 days AMOXICILLIN 47545503760 No Longer Active Carlton bustamante MD Active AMOXICILLIN 500 MG ORAL CAPSULE 1 tab by mouth 3 times daily x 10 days AMOXICILLIN 00522990060 No Longer Active Carlton bustamante MD Active PROMETHAZINE-CODEINE 6.25-10 MG/5ML ORAL SYRUP 1 tsp b y mouth every 8 hours prn cough PROMETHAZINE-CODEINE 77328243920 No Longer Acti ve Carlton Hu MD Active MEDROL 4 MG ORAL TABLET THERAPY PACK 6 pills x 1 day, then 5 pills x 1 day then 4 pills x 1 day, then 3 pills x 1 day, then 2 pills x 1 day, then 1 pill x 1 day, then stop METHYLPREDNISOLONE 05984975243 No Long er Active Perez Mora MD Active AZITHROMYCIN 250 MG ORAL TABLET 2 po qd x 1 day, then 1 po q d x 4 days AZITHROMYCIN 67109653516 No Longer Active Perez Ambriz MD Active SYMBICORT 160-4.5 MCG/ACT INHALATION AEROSOL 2 puffs bid wit h rinse after BUDESONIDE-FORMOTEROL FUMARATE 15721048640 N o Longer Active Perez Mora MD Active LYRICA 75 MG ORAL CAPSULE TAKE 1 CAPSULE BY MOUTH TWICE DAILY PREGABALIN 19963292840 No Longer Active Carlton Hu MD Acti ve TOPAMAX 25 MG ORAL TABLET 1 qHS x 1 week, then 1 BID x 1 week, then 1 qAM and 2 qHS x 1 week, then 2 BID (migraine prevention) T OPIRAMATE 76520290029 No Longer Active Jerica FUENTES Active TOPAMAX 50 MG ORAL TABLET take 1 tab po BID for migraines. 07/02 TOPIRAMATE 41097086220 No Longer Active Jerica FUENTES Active TOPAMAX 100 MG ORAL TABLET Take 1 tablet po bid TO PIRAMATE 44830105907 Active Carlton Hu MD Active TRIAMCINOLONE ACETONIDE 0.1 % EXTERNAL CREAM apply three roger es daily prn rash TRIAMCINOLONE ACETONIDE 42542519713 No Longer Active Carlton Hu MD Active PAXIL 40 MG ORAL TABLET take 1 tab po qday for depression 0 PAROXETINE HCL 43419046794 Active Carlton Hu MD Active CHERATUSSIN AC 100-10 MG/5ML ORAL SYRUP 5ml po q6hr PRN Cough 20 13/04/14 GUAIFENESIN-CODEINE 73419647428 No Longer Active Carlton Hu MD Active MEDROL 4 MG ORAL TABLET THERAPY PACK 6 tabs on day 1, 5 tabs on day 2, 4 tabs on day 3, 3 tabs on day 4, 2 tabs on day 5, 1 tab on day 6 2013 METHYLPREDNISOLONE 45895893350 No Longer Active Perez Mora MD Active AZITHROMYCIN 250 MG ORAL TABLET 2 po qd x 1 day, then 1 po q d x 4 days AZITHROMYCIN 87859293833 No Longer Active Perez Ambriz MD Active PROPRANOLOL HCL 60 MG ORAL TABLET 1 PO Q D PROPRANOLOL HCL 96989995522 No Longer Active Perez Mora MD Activ e CHERATUSSIN AC 100-10 MG/5ML ORAL SYRUP take one tsp po Q 6h ours prn cough GUAIFENESIN-CODEINE 77005792337 No Longer Active Zia oMra MD Active AUGMENTIN 875-125 MG ORAL TABLET 1 tab by mouth twice daily with food AMOXICILLIN-POT CLAVULANATE 01155307304 No Longer Act nael Perez Mora MD Active CHERATUSSIN AC 100-10 MG/5ML ORAL SYRUP 1 tsp by mouth every 4 hours as needed for cough GUAIFENESIN-CODEINE 29200435808 No Longe r Active Hugo Restrepo MD Active ACETAMINOPHEN-CODEINE #3 300-30 MG ORAL TABLET 1 PO Q 4-6 HRS TX N PAIN ACETAMINOPHEN-CODEINE 36851558447 No Longer Active Hugo Restrepo MD Active LEVAQUIN 500 MG ORAL TABLET take one po QD LEVO FLOXACIN 16840948197 No Longer Active Griffin HERNANDEZ Active PREDNISONE 20 MG ORAL TABLET Take 3 tabs daily for 3 d ays, 2 tabs daily for 3 days, 1 tab daily for 3 days, 1/2 tab daily for 3 days 11/07 PREDNISONE 99012166419 No Longer Active Carlton Hu MD Acti ve AVELOX 400 MG ORAL TABLET 1 tab by mouth daily MOXIFLOXACIN HCL 68477041925 No Longer Active Carlton uH MD Active CHERATUSSIN AC 100-10 MG/5ML ORAL SYRUP 1 tsp by mouth every 4 hours as needed for cough GUAIFENESIN-CODEINE 97765031818 No Longe r Active Hugo Restrepo MD Active AVELOX 400 MG ORAL TABLET 1 tab by mouth daily MOXIFLOXACIN HCL 89143988890 No Longer Active Marcy De La Rosa MD PhD Active TERBINAFINE HCL 250 MG ORAL TABLET 1 qDay T ERBINAFINE HCL 58109230855 No Longer Active Marcy De La Rosa MD PhD Active CHERATUSSIN AC 100-10 MG/5ML ORAL SYRUP 1 tsp by mouth every 4 hours as needed for cough GUAIFENESIN-CODEINE 32285323876 No Longe r Active Marcy De La Rosa MD PhD Active AVELOX 400 MG ORAL TABLET 1 tab by mouth daily MOXIFLOXACIN HCL 75444709228 No Longer Active Marcy De La Rosa MD PhD Active HYDROCODONE-ACETAMINOPHEN 5-325 MG ORAL TABLET 1 po q 6hr PRN co ugh HYDROCODONE-ACETAMINOPHEN 96162482242 No Longer Active Marcy De La Rosa MD PhD Active PREDNISONE 20 MG ORAL TABLET 2 tabs daily for 3 days, 1 tab daily for 3 days, 1/2 tab daily for 2 days PREDNISONE 30896627879 No Longer Active Carlton Hu MD Active CEFDINIR 300 MG ORAL CAPSULE by mouth twice a day 2011 CEFDINIR 26504577699 No Longer Active Carlton Hu MD Acti ve HYDROCHLOROTHIAZIDE 25 MG ORAL TABLET 1 TAB PO DAILY HYDROCHLOROTHIAZIDE 84583275119 Active ALFREDO Holly Ac tive ACETAMINOPHEN-CODEINE #3 300-30 MG ORAL TABLET 1 tablet po q 4-6 hrs prn pain ACETAMINOPHEN-CODEINE 96579419753 No Longer Active Ridge Bess DO Active ZITHROMAX 250 MG ORAL TABLET 2 po today, then 1 po q days 2-5 20 03/07/07 AZITHROMYCIN 43070732269 No Longer Active Carlton Hu MD Active CHERATUSSIN AC 100-10 MG/5ML ORAL SYRUP take 1 tsp po q4-6 h ours prn cough GUAIFENESIN-CODEINE 71663949805 No Longer Active Jayden Hu MD Active ACETAMINOPHEN-CODEINE #3 300-30 MG ORAL TABLET 1 PO Q 4-6 HR PRN PAIN ACETAMINOPHEN-CODEINE 68849773591 No Longer Active Arnol Hu MD Active LORTAB 7.5-500 MG/15ML ORAL ELIXIR 7.5 ml po q 4 hour prn cough HYDROCODONE-ACETAMINOPHEN 55545572579 No Longer Active Carlton Hu MD Active PREDNISONE 20 MG ORAL TABLET 1 po bid 3 days, then 1 po q day 3 days PREDNISONE 57632130201 No Longer Active Carlton Hu MD Active CEFDINIR 300 MG ORAL CAPSULE by mouth twice a day 2011 CEFDINIR 30876756126 No Longer Active Carlton Hu MD Acti ve CEFDINIR 300 MG ORAL CAPSULE by mouth twice a day 2010 CEFDINIR 22468313870 No Longer Active Carlton Hu MD Acti ve CEFDINIR 300 MG ORAL CAPSULE by mouth twice a day 2010 CEFDINIR 58589467024 No Longer Active Carlton Hu MD Acti ve TESSALON PERLES 100 MG ORAL CAPSULE 1 tablet by mouth 3 times daily as needed for cough BENZONATATE 72392438849 No Longer Active Carlton Hu MD Active CEFDINIR 300 MG ORAL CAPSULE by mouth twice a day 2010 CEFDINIR 65926944536 No Longer Active Carlton Hu MD Acti ve ZITHROMAX Z-REYNA 250 MG ORAL TABLET 2 today, then 1 daily for 4 d ays AZITHROMYCIN 58497979908 No Longer Active Hugo Restrepo MD Active TESSALON PERLES 100 MG ORAL CAPSULE 1 tablet by mouth 3 times daily as needed for cough TESSALON PERLES 100 MG ORAL CAPSULE 79099 7 BENZONATATE Inactive PREDNISONE 20 MG ORAL TABLET 1 po bid 3 days, then 1 po q day 3 days PREDNISONE 20 MG ORAL TABLET 704056 PREDNISONE Greer ctive LORTAB 7.5-500 MG/15ML ORAL [...] cough CHERATUSSIN AC 100-10 MG/5ML ORAL SYRUP 149116 GUAIFENESIN-CODEINE Inactive ACETAMINOPHEN-CODEINE #3 300-30 MG ORAL TABLET 1 tablet po q 4-6 hrs prn pain ACETAMINOPHEN-CODEINE #3 300-30 MG ORAL TABLET ACETAMINOPHEN-CODEINE Inactive HYDROCODONE-ACETAMINOPHEN 5-325 MG ORAL TABLET 1 po q 6hr PRN co ugh HYDROCODONE-ACETAMINOPHEN 5-325 MG ORAL TABLET 123225 HYDROCODONE-ACETAMINOPHEN Inactive AVELOX 400 MG ORAL TABLET 1 tab by mouth daily AVELOX 400 MG ORAL TABLET 223621 MOXIFLOXACIN HCL Inactive CHERATUSSIN AC 100-10 MG/5ML ORAL SYRUP 1 tsp by mouth every 4 hours as needed for cough CHERATUSSIN AC 100-10 MG/5ML ORAL SYRUP 9 88436 GUAIFENESIN-CODEINE Inactive TERBINAFINE HCL 250 MG ORAL TABLET 1 qDay 07/08 TERBINAFINE HCL 250 MG ORAL TABLET 427583 TERBINAFINE HCL Inactive CHERATUSSIN AC 100-10 MG/5ML ORAL SYRUP 1 tsp by mouth every 4 hours as needed for cough CHERATUSSIN AC 100-10 MG/5ML ORAL SYRUP 9 10892 GUAIFENESIN-CODEINE Inactive ACETAMINOPHEN-CODEINE #3 300-30 MG ORAL TABLET 1 PO Q 4-6 HRS TX N PAIN ACETAMINOPHEN-CODEINE #3 300-30 MG ORAL TABLET ACETAMINOPHEN-CODEINE Inactive CHERATUSSIN AC 100-10 MG/5ML ORAL SYRUP 1 tsp by mouth every 4 hours as needed for cough CHERATUSSIN AC 100-10 MG/5ML ORAL SYRUP 9 95495 GUAIFENESIN-CODEINE Inactive AUGMENTIN 875-125 MG ORAL TABLET 1 tab by mouth twice daily with food AUGMENTIN 875-125 MG ORAL TABLET 279233 AMOXICIL MADELINE-POT CLAVULANATE Inactive CHERATUSSIN AC 100-10 MG/5ML ORAL SYRUP take one tsp po Q 6h ours prn cough CHERATUSSIN AC 100-10 MG/5ML ORAL SYRUP 509665 GUAIFENESIN-CODEINE Inactive PROPRANOLOL HCL 60 MG ORAL TABLET 1 PO Q D PROPRANOLOL HCL 60 MG ORAL TABLET 308650 PROPRANOLOL HCL Inactive TOPAMAX 50 MG ORAL TABLET take 1 tab po BID for migraines. 07/02 TOPAMAX 50 MG ORAL TABLET 476250 TOPIRAMATE Inacti ve TOPAMAX 25 MG ORAL TABLET 1 qHS x 1 week, then 1 BID x 1 week, then 1 qAM and 2 qHS x 1 week, then 2 BID (migraine prevention) TOPAMAX 25 MG ORAL TABLET 300466 TOPIRAMATE Inactive LYRICA 75 MG ORAL CAPSULE TAKE 1 CAPSULE BY MOUTH TWICE DAILY LYRICA 75 MG ORAL CAPSULE PREGABALIN Inactive SYMBICORT 160-4.5 MCG/ACT INHALATION AEROSOL 2 puffs bid wit h rinse after SYMBICORT 160-4.5 MCG/ACT INHALATION AEROSOL BUDESONIDE- FORMOTEROL FUMARATE Inactive PROMETHAZINE-CODEINE 6.25-10 MG/5ML ORAL SYRUP 1 tsp b y mouth every 8 hours prn cough PROMETHAZINE-CODEINE 6.25-10 MG/ 5ML ORAL SYRUP 989356 PROMETHAZINE-CODEINE Inactive CYMBALTA 30 MG ORAL CAPSULE DELAYED RELEASE PARTICLES 1 cap by mouth daily CYMBALTA 30 MG ORAL CAPSULE DELAYED RELE ASE PARTICLES 446698 DULOXETINE HCL Inactive PREMARIN 0.625 MG ORAL TABLET TAKE 1 TAB BY MOUTH DAILY PREMARIN 0.625 MG ORAL TABLET ESTROGENS CONJUGATED Inactive CHERATUSSIN AC 100-10 MG/5ML ORAL SYRUP 1 tsp by mouth every 4 hours as needed for cough CHERATUSSIN AC 100-10 MG/5ML ORAL SYRUP 9 04424 GUAIFENESIN-CODEINE Inactive PROMETHAZINE-CODEINE 6.25-10 MG/5ML ORAL SYRUP 1 tsp b y mouth every 6 hours if needed for cough PROMETHAZINE-CODEINE 6.25-10 MG/5ML ORAL SYRUP 492366 PROMETHAZINE-CODEINE Inactive CHERATUSSIN AC 100-10 MG/5ML ORAL SYRUP 1 tsp by mouth every 4 hours as needed for cough CHERATUSSIN AC 100-10 MG/5ML ORAL SYRUP 9 19893 GUAIFENESIN-CODEINE Inactive FLUTICASONE PROPIONATE 50 MCG/ACT NASAL SUSPENSION 1 t o 2 sprays each nostril daily FLUTICASONE PROPIONATE 50 MCG/AC T NASAL SUSPENSION 4517706 FLUTICASONE PROPIONATE Inactive PREDNISONE 20 MG ORAL TABLET 3 tab PO qd x 2d, 2 tab P O qd x 2d, 1 tab PO qd x 2d, 1/2 tab PO qd x 2d PREDNISONE 20 MG ORAL TAB LET 468867 PREDNISONE Inactive LEVOFLOXACIN 500 MG ORAL TABLET 1 tab PO daily x 10 days LEVOFLOXACIN 500 MG ORAL TABLET 907853 LEVOFLOXACIN Inactive CYCLOBENZAPRINE HCL 10 MG ORAL TABLET 1 tablet by mouth BID prn had pain CYCLOBENZAPRINE HCL 10 MG ORAL TABLET 468949 CYCLOBENZAPRINE HCL Inactive ZOCOR 40 MG ORAL TABLET 1 tab by mouth daily 4 ZOCOR 40 MG ORAL TABLET 023203 SIMVASTATIN Inactive TUSSIONEX PENNKINETIC ER 10-8 MG/5ML [...] FLUTICASONE PROPIO EFE 50 MCG/ACT NASAL SUSPENSION 0322620 FLUTICASONE PROPIONATE Inactive TUSSIONEX PENNKINETIC ER 10-8 [...] three days PREDNISONE 20 MG ORAL TABLET 446625 PREDNIS ONE Inactive PROAIR HFA 108 (90 BASE) MCG/ACT INHALATION AEROSOL SO LUTION 2 puffs four times a day as needed PROAIR HFA 108 (90 B ASE) MCG/ACT INHALATION AEROSOL SOLUTION ALBUTEROL SULFATE Inactive ZITHROMAX Z-REYNA 250 MG ORAL TABLET 2 today, then 1 daily for 4 d ays ZITHROMAX Z-REYNA 250 MG ORAL TABLET 384869 AZITHROMYCIN Inactive CEFDINIR 300 MG ORAL CAPSULE by mouth twice a day 2010 CEFDINIR 300 MG ORAL CAPSULE 981713 CEFDINIR Inactive CEFDINIR 300 MG ORAL CAPSULE [...] 2-5 03/07/07 ZITHROMAX 250 MG ORAL TABLET 803712 AZITHROMYCIN Greer ctive CEFDINIR 300 MG ORAL CAPSULE by mouth twice a day 2011 CEFDINIR 300 MG ORAL CAPSULE 20020704 CEFDINIR Inactive PREDNISONE 20 MG ORAL TABLET 2 tabs daily for 3 days, 1 tab daily for 3 days, 1/2 tab daily for 2 days PREDNISONE 20 MG ORAL T ABLET 166467 PREDNISONE Inactive AVELOX 400 MG ORAL TABLET 1 tab by mouth daily AVELOX 400 MG ORAL TABLET 124323 MOXIFLOXACIN HCL Inactive AVELOX 400 MG ORAL TABLET 1 tab by mouth daily AVELOX 400 MG ORAL TABLET 425501 MOXIFLOXACIN HCL Inactive PREDNISONE 20 MG ORAL TABLET Take 3 tabs daily for 3 d ays, 2 tabs daily for 3 days, 1 tab daily for 3 days, 1/2 tab daily for 3 days 11/07 PREDNISONE 20 MG ORAL TABLET 520278 PREDNISONE Inactive LEVAQUIN 500 MG ORAL TABLET take one po QD LEVAQUIN 500 MG ORAL TABLET 290426 LEVOFLOXACIN Inactive AZITHROMYCIN 250 MG ORAL TABLET 2 po qd x 1 day, then 1 po q d x 4 days AZITHROMYCIN 250 MG ORAL TABLET 596020 AZITHROMY GIOVANNI Inactive MEDROL 4 MG ORAL TABLET THERAPY PACK 6 tabs on day 1, 5 tabs on day 2, 4 tabs on day 3, 3 tabs on day 4, 2 tabs on day 5, 1 tab on day 6 2013 MEDROL 4 MG ORAL TABLET THERAPY PACK 385716 METHYLPREDNISOLONE Greer ctive CHERATUSSIN AC 100-10 MG/5ML ORAL SYRUP 5ml po q6hr PRN Cough 20 13/04/14 CHERATUSSIN AC 100-10 MG/5ML ORAL SYRUP 176328 GUAIFENE SIN-CODEINE Inactive TRIAMCINOLONE ACETONIDE 0.1 % EXTERNAL CREAM apply three roger es daily prn rash TRIAMCINOLONE ACETONIDE 0.1 % EXTERNAL CREAM 101 4314 TRIAMCINOLONE ACETONIDE Inactive AZITHROMYCIN 250 MG ORAL TABLET 2 po qd x 1 day, then 1 po q d x 4 days AZITHROMYCIN 250 MG ORAL TABLET 817590 AZITHROMY GIOVANNI Inactive MEDROL 4 MG ORAL TABLET THERAPY PACK 6 pills x 1 day, then 5 pills x 1 day then 4 pills x 1 day, then 3 pills x 1 day, then 2 pills x 1 day, then 1 pill x 1 day, then stop MEDROL 4 MG ORAL TABLET THERAPY PACK 454179 METHYLPREDNISOLONE Inactive AMOXICILLIN 500 MG ORAL CAPSULE 1 tab by mouth 3 times daily x 10 days AMOXICILLIN 500 MG ORAL CAPSULE 153610 AMOXICILL IN Inactive AMOXICILLIN 500 MG ORAL CAPSULE 1 tab by mouth 3 times daily x 10 days AMOXICILLIN 500 MG ORAL CAPSULE 397801 AMOXICILL IN Inactive ZITHROMAX 250 MG ORAL TABLET 2 po today, then 1 po q days 2-5 20 12/08/14 ZITHROMAX 250 MG ORAL TABLET 701842 AZITHROMYCIN Greer ctive AUGMENTIN 875-125 MG ORAL TABLET 1 po BID x 10 days 20 13/01/20 AUGMENTIN 875-125 MG ORAL TABLET 278234 AMOXICILLIN-POT CLAVULANATE Inactive ZITHROMAX Z-REYNA 250 MG ORAL TABLET 2 today, then 1 daily for 4 d ays ZITHROMAX Z-REYNA 250 MG ORAL TABLET 226913 AZITHROMYCIN Inactive ZITHROMAX 250 MG ORAL TABLET 2 po today, then 1 po q days 2-5 20 14/03/21 ZITHROMAX 250 MG ORAL TABLET 715171 AZITHROMYCIN [place] ctive ZITHROMAX Z-REYNA 250 MG ORAL TABLET 2 today, then 1 daily for 4 d ays ZITHROMAX Z-REYNA 250 MG ORAL TABLET 787944 AZITHROMYCIN Inactive CEFDINIR 300 MG ORAL CAPSULE 1 po BID x 10 days 06/21 CEFDINIR 300 MG ORAL CAPSULE 20020704 CEFDINIR Inactive ZITHROMAX 250 MG ORAL TABLET 2 po today, then 1 po q days 2-5 20 13/08/10 ZITHROMAX 250 MG ORAL TABLET 322350 AZITHROMYCIN [place] ctive LEVAQUIN 500 MG ORAL TABLET 1 tablet by mouth daily 13/09/24 LEVAQUIN 500 MG ORAL TABLET 19971102 LEVOFLOXACIN Inactive SINGULAIR 10 MG ORAL TABLET 1 po qday for allergies 20 14/01/12 SINGULAIR 10 MG ORAL TABLET 20010504 MONTELUKAST SODIUM Inactive AMOXICILLIN 500 MG ORAL CAPSULE 2 po BID x 10 days 201 09/29/08 AMOXICILLIN 500 MG ORAL CAPSULE 680967 AMOXICILLIN Inactive PREDNISONE 20 MG ORAL TABLET 2 tabs daily for 3 days, 1 tab daily for 3 days, 1/2 tab daily for 2 days PREDNISONE 20 MG ORAL T ABLET 600186 PREDNISONE Inactive ZITHROMAX Z-REYNA 250 MG ORAL TABLET 2 today, then 1 daily for 4 d ays ZITHROMAX Z-REYNA 250 MG ORAL TABLET 719882 AZITHROMYCIN Inactive PREDNISONE 20 MG ORAL TABLET 2 tabs daily for 3 days, 1 tab daily for 3 days, 1/2 tab daily for 2 days PREDNISONE 20 MG ORAL T ABLET 573154 PREDNISONE Inactive ZITHROMAX 250 MG ORAL TABLET 2 po today, then 1 po q days 2-5 20 14/09/04 ZITHROMAX 250 MG ORAL TABLET 439709 AZITHROMYCIN Greer ctive AMOXICILLIN 500 MG ORAL CAPSULE 1 cap by mouth three times a day AMOXICILLIN 500 MG ORAL CAPSULE 636956 AMOXICILLIN Inactive TERBINAFINE HCL 250 MG ORAL TABLET 1 qDay for nail fungus 7 TERBINAFINE HCL 250 MG ORAL TABLET 482923 TERBINAFINE HCL Inact nael AUGMENTIN 875-125 MG ORAL TABLET 1 po BID x 10 days 16/03/22 AUGMENTIN 875-125 MG ORAL TABLET 913317 AMOXICILLIN-POT CLAVULANATE Inactive PREDNISONE 20 MG ORAL TABLET 2 po qd x 5 days PREDNISONE 20 MG ORAL TABLET 738618 PREDNISONE Inactive Vital Signs Date Name Value [...] - Chem istry sodium, serum 132 mmol/L 186-146 7907/07/12 potassium, serum 2.7 mmol/L 3.5-5.2 chloride, serum 93 mmol/L 98-107 carbon dioxide, venous blood 30.8 mmol/L 21.0-32 .0 blood glucose 107 mg/dL 65-110 calcium, serum 9.3 mg/dL 8.5-10.1 urea nitrogen, blood 12 mg/dL 7-18 creatinine, serum 1.00 mg/dL 0.60-1.30 sodium, serum 142 mmol/L 924-507 5145/07/17 potassium, serum 4.2 mmol/L 3.5-5.2 chloride, serum 106 mmol/L 98-107 carbon dioxide, venous blood 29.9 mmol/L 21.0-32 .0 blood glucose 108 mg/dL 65-110 calcium, serum 9.1 mg/dL 8.5-10.1 urea nitrogen, blood 11 mg/dL 7-18 creatinine, serum 0.81 mg/dL 0.60-1.30 Lab Report: Rapid Strep - Lab Microbial identification kit, rapid strep method Negative Negative Encounters Code Encounter Date Provider Facility CPT-98275 Level 3 Est. Patient 11:34:49 BENCH MOLDER Perez Mora MD [facility] CPT-80427 Level 4 Est. Patient 09:51:32 BENCH MOLDER Carlton rich MD [facility] CPT-92326 Level 3 Est. Patient 10:26:00 BENCH MOLDER Elise stephenson [facility]-33123 Level 3 Est. Patient 13:35:41 BENCH MOLDER Carlton rich MD [facility] CPT-11069 Level 3 Est. Patient 10:03:52 BENCH MOLDER Carlton rich MD [facility] CPT-80423 Level 3 Est. Patient 12:17:50 CDT Hugo Restrepo MD [facility] CPT-23701 Level 3 Est. Patient 13:42:38 CDT Elise stephenson [facility] CPT-75741 Level 3 Est. Patient 13:23:51 CDT Diya cobian [facility] CPT-20269 Level 3 Est. Patient 14:22:19 BENCH MOLDER Diya cobian [facility]-40057 Level 3 Est. Patient 10:11:46 CDT Carlton rich MD [facility] CPT-49911 Level 3 Est. Patient 17:29:43 CDT Elise Are ll [employer] [facility] CPT-10860 Level 3 Est. Patient 11:58:06 CDT Elise Are ll [facility] CPT-00840 Level 4 Est. Patient 14:36:51 CDT Carlton rich MD [facility] CPT-23045 Level 3 Est. Patient 18:16:00 BENCH MOLDER Blaine Freeman [facility] CPT-99607 Level 3 Est. Patient 09:45:49 BENCH MOLDER Carlton rich MD [facility] CPT-59433 Level 3 Est. Patient 13:19:20 CDT Carlton rich MD [facility] CPT-73624 Level 3 Est. Patient 13:06:43 CDT Ridge tam DO [facility] CPT-27552 Level 3 Est. Patient 10:03:07 CDT Perez Mora MD [facility] CPT-56029 Level 3 Est. Patient 19:50:35 BENCH MOLDER Carlton rich MD [facility] CPT-36484 Level 4 Est. Patient 18:05:01 BENCH MOLDER Carlton rich MD [facility] CPT-72124 Level 3 Est. Patient 10:45:55 BENCH MOLDER Hugo Restrepo MD [facility] CPT-36869 Level 3 Est. Patient 14:12:49 CDT Griffin lincoln [facility] CPT-61285 Level 3 Est. Patient 17:37:24 CDT Carlton rich MD [facility] CPT-67934 Level 3 Est. Patient 16:51:54 CDT Carlton rich MD [facility] CPT-18185 Level 3 Est. Patient 12:18:11 CDT Hugo Restrepo MD [facility] CPT-73791 Level 3 Est. Patient 11:30:25 CDT Marcy crisostomo MD PhD [facility] CPT-41525 Level 3 Est. Patient 12:00:47 BENCH MOLDER Carlton rich MD [facility] CPT-99229 Level 3 Est. Patient 16:31:06 BENCH MOLDER Carlton rich MD [facility] CPT-78131 Level 3 Est. Patient 16:23:24 BENCH MOLDER Ridge tam [facility] CPT-28460 Level 3 Est. Patient 12:34:12 CDT Carlton rich MD [facility] CPT-21589 Level 2 Est. Patient 15:43:33 CDT Robi armstrong MD [facility] CPT-50622 Level 4 Est. Patient 14:04:44 CDT Carlton rich MD [facility] CPT-91268 Level 3 Est. Patient 05:47:59 CDT Ridge tam [facility] CPT-89581 Level 3 Est. Patient 13:12:53 BENCH MOLDER Carlton rich MD [facility] CPT-96324 Level 3 Est. Patient 14:26:53 CDT Hugo Restrepo MD [facility] Procedures Code Procedure Name Date Entry Date Standard Desc ription CPT-J1040 Depo Medrol 80 mg (Methyl Prednisolone A cetate) 10:42:44 CDT CPT-J1100 Decadron 8mg (Dexamethasone) 10:42:44 CDT 2 CPT-J0696 Rocephin 1gm Inj Solr 14:32:13 CDT CPT-J1020 Depo Medrol 60 mg (Methyl Prednisolone A cetate) 14:32:13 CDT CPT-J1100 Decadron 6mg (Dexamethasone) 14:32:13 CDT 2 CPT-89836 Hip bilat min 2V w AP pelvis 13:16:20 CDT 2 CPT-42284 Pelvis only 13:07:33 CDT CPT-79117 Spec Collection and Handling Fee 11:25:12 C DT CPT-18874 Fluzone Quadrivalent Intramuscular Suspe nsion 0.5 ML 14:31:55 CDT CPT-19090 Abx/Therapy Injection 13:28:47 BENCH MOLDER CPT-J2930 Solu Medrol 125 mg (Methyl Prednisolone Sodium Succinate) 12:00:47 BENCH MOLDER CPT-76321 Venipuncture Draw Fee 11:33:31 CDT CPT-34375 EKG Trac and Interp 11:21:09 CDT CPT-56636 Chest 2V Frontal and Lat 11:21:09 CDT 12/15 CPT-88238 Venipuncture Draw Fee 08:02:34 CDT CPT-74157 Chest 2V Frontal and Lat 05:47:59 CDT 06/05
--- OUTSIDE RECORDS SUMMARY | 2019-10-08 08:23 | XMS REPORT | Clinical Summary ---
Author Author Caitlin, Juliana Martinez Organization [facility] Address Unknown Phone Unavailable Allergies, Adverse [...] po qd x 5 days P REDNISONE [id number] No Longer Active Perez Mora MD Active PROAIR HFA 108 (90 BASE) MCG/ACT INHALATION AEROSOL SO LUTION 2 puffs four times a day as needed ALBUTEROL SULFATE 04874820051 No Long er Active Becky FUENTES Active ASPIRIN 81 MG ORAL TABLET 1 po qd ASPIRIN 19621286684 Active Carlton Hu MD Active PREDNISONE 20 MG ORAL TABLET 1 tab twice daily for 3 d ay, then one daily for three days PREDNISONE 95946844377 No Longer Active Carlton Hu MD Active AUGMENTIN 875-125 MG ORAL TABLET 1 po BID x 10 days 16/03/22 AMOXICILLIN-POT CLAVULANATE 90666808495 No Longer Active Elise Garcia APRN Active TERBINAFINE HCL 250 MG ORAL TABLET 1 qDay for nail fungus 7 TERBINAFINE HCL 96494099639 No Longer Active Carlton Hu MD A ctive TUSSIONEX PENNKINETIC ER 10-8 MG/5ML ORAL SUSPENSION E XTENDED RELEASE 5ml po q12hr PRN Cough HYDROCOD POLST-CHLORPHEN POLST 56977820427 Active Perez Mora MD Active AMOXICILLIN 500 MG ORAL CAPSULE 1 cap by mouth three times a day AMOXICILLIN 03793970740 No Longer Active Carlton Hu MD Active ELMIRON 100 MG ORAL CAPSULE 2 tablets in the am and 1 tablet at hs PENTOSAN POLYSULFATE SODIUM 54294153497 No Longer Active Robert Hu MD Active MUCINEX D 60-600 MG ORAL TABLET EXTENDED RELEASE 12 HOUR 1 t ab po q am PSEUDOEPHEDRINE-GUAIFENESIN 29109267324 No Longer Act nael Carlton Hu MD Active MUCINEX DM MAXIMUM STRENGTH 60-1200 MG ORAL TABLET EXT ENDED RELEASE 12 HOUR 1 tab po q am DEXTROMETHORPHAN-GUAIFENESIN 33870585413 No Longer Active Carlton Hu MD Active TUSSIONEX PENNKINETIC ER 10-8 MG/5ML ORAL SUSPENSION E XTENDED RELEASE 5ml po q12hr PRN Cough HYDROCOD POLST-CHLORPHEN POLST 5 0206252615 No Longer Active Carlton Hu MD Active POTASSIUM CHLORIDE ER 20 MEQ ORAL TABLET EXTENDED RELE ASE Take 1 by mouth 4 times daily for 7 days POTASSIUM CHLORIDE 95385612234 No Longer Active Carlton Hu MD Active ZITHROMAX 250 MG ORAL TABLET 2 po today, then 1 po q days 2-5 20 14/09/04 AZITHROMYCIN 73056238526 No Longer Active Elise Garcia APRN Active TUSSIONEX PENNKINETIC ER 10-8 MG/5ML ORAL SUSPENSION E XTENDED RELEASE 5 ml twice a day as needed for cough HYDROCOD POLST-CHLORPH EN POLST 91227609869 No Longer Active Elise Garcia APRN Active MONTELUKAST SODIUM 10 MG ORAL TABLET 1 po daily for Allergy MONTELUKAST SODIUM 85050965968 Active Carlton Hu MD Ac tive TUSSIONEX PENNKINETIC ER 10-8 MG/5ML ORAL SUSPENSION E XTENDED RELEASE 5ml po q12hr PRN Cough HYDROCOD POLST-CHLORPHEN POLST 5 5623246748 No Longer Active Hugo Restrepo MD Active GABAPENTIN 100 MG ORAL CAPSULE 1 po BID for fibromyalgia GABAPENTIN 56825073104 Active Carlton Hu MD Active LYRICA 100 MG ORAL CAPSULE Take 1 tab po BID for fibromyalgia 20 11/08/21 PREGABALIN 67593652582 No Longer Active Elise Garcia APRN A ctive PREDNISONE 20 MG ORAL TABLET 2 tabs daily for 3 days, 1 tab daily for 3 days, 1/2 tab daily for 2 days PREDNISONE 84684641137 No Longer Active Diya De Guzman APRN Active TUSSIONEX PENNKINETIC ER 10-8 MG/5ML ORAL SUSPENSION E XTENDED RELEASE 5 mL PO q 12 hrs PRN cough HYDROCOD POLST-CHLORPHEN POLST 841786 96032 No Longer Active Jillina Gege RICEN Active FLUTICASONE PROPIONATE 50 MCG/ACT NASAL SUSPENSION 2 s prays each nostril daily until bottle is empty FLUTICASONE PROPIONATE 682754716 99 No Longer Active Diya De Guzman APRN Active ASMANEX 60 METERED DOSES 220 MCG/INH INHALATION AEROSO L POWDER BREATH ACTIVATED 1 puff bid with rinse after MOMETASONE FUROATE 7769516 4102 No Longer Active Diya De Guzmna [employer] Active ZITHROMAX Z-REYNA 250 MG ORAL TABLET 2 today, then 1 daily for 4 d ays AZITHROMYCIN 67113650275 No Longer Active Elise Garcia APRN Active TUSSIONEX PENNKINETIC ER 10-8 MG/5ML ORAL SUSPENSION E XTENDED RELEASE 5ml po q12hr PRN Cough HYDROCOD POLST-CHLORPHEN POLST 5 6105644695 No Longer Active Elise Garcia APRN Active PREDNISONE 20 MG ORAL TABLET 2 tabs daily for 3 days, 1 tab daily for 3 days, 1/2 tab daily for 2 days PREDNISONE 01481575963 No Longer Active Diya De Guzman APRN Active AMOXICILLIN 500 MG ORAL CAPSULE 2 po BID x 10 days 201 09/29/08 AMOXICILLIN 62769313367 No Longer Active Diya De Guzman APRN Act nael SINGULAIR 10 MG ORAL TABLET 1 po qday for allergies 20 14/01/12 MONTELUKAST SODIUM 65399054808 No Longer Active Carlton Hu MD Active LEVAQUIN 500 MG ORAL TABLET 1 tablet by mouth daily 20 13/09/24 LEVOFLOXACIN 11501408599 No Longer Active Carlton Hu MD Acti ve FLUTICASONE PROPIONATE 50 MCG/ACT NASAL SUSPENSION 2 s prays each nostril daily for 2 weeks, then 1 spray each nostril daily. FLUTICASONE PROPIONATE 35707109693 Active Elise Garcia APRN Active ZITHROMAX 250 MG ORAL TABLET 2 po today, then 1 po q days 2-5 20 13/08/10 AZITHROMYCIN 22603359674 No Longer Active Elise Garcia APRN Active XANAX 0.5 MG ORAL TABLET one tablet by mouth daily prn anxiety 2015 ALPRAZOLAM 77850467271 Active Carlton Hu MD Active CYMBALTA 30 MG ORAL CAPSULE DELAYED RELEASE PARTICLES 1 cap by mouth daily for depression DULOXETINE HCL 75693534909 Active Carlton beltrán MD Active CEFDINIR 300 MG ORAL CAPSULE 1 po BID x 10 days CEFDINIR 03848381154 No Longer Active Carlton Hu MD Active ZOCOR 40 MG ORAL TABLET 1 tab by mouth daily SI MVASTATIN 26992090963 No Longer Active Carlton Hu MD Active CYCLOBENZAPRINE HCL 10 MG ORAL TABLET 1 tablet by mouth BID prn had pain CYCLOBENZAPRINE HCL 29909771278 No Longer Active Jayden Hu MD Active LEVOFLOXACIN 500 MG ORAL TABLET 1 tab PO daily x 10 days LEVOFLOXACIN 54810217576 No Longer Active Carlton Hu MD Acti ve PREDNISONE 20 MG ORAL TABLET 3 tab PO qd x 2d, 2 tab P O qd x 2d, 1 tab PO qd x 2d, 1/2 tab PO qd x 2d PREDNISONE 82197206534 No Lo nger Active Carlton Hu MD Active FLUTICASONE PROPIONATE 50 MCG/ACT NASAL SUSPENSION 1 t o 2 sprays each nostril daily FLUTICASONE PROPIONATE 28394338018 No Longer Ac tive Blaine HERNANDEZ Active CHERATUSSIN AC 100-10 MG/5ML ORAL SYRUP 1 tsp by mouth every 4 hours as needed for cough GUAIFENESIN-CODEINE 60896417268 No Longe r Active Blaine HERNANDEZ Active PROMETHAZINE-CODEINE 6.25-10 MG/5ML ORAL SYRUP 1 tsp b y mouth every 6 hours if needed for cough PROMETHAZINE-CODEINE 46483675943 No Longer Active Blaine HERNANDEZ Active CHERATUSSIN AC 100-10 MG/5ML ORAL SYRUP 1 tsp by mouth every 4 hours as needed for cough GUAIFENESIN-CODEINE 11024637633 No Longe r Active Blaine HERNANDEZ Active ZITHROMAX Z-REYNA 250 MG ORAL TABLET 2 today, then 1 daily for 4 d ays AZITHROMYCIN 73087238961 No Longer Active Columba Raida Act nael ZITHROMAX 250 MG ORAL TABLET 2 po today, then 1 po q days 2-5 20 14/03/21 AZITHROMYCIN 82316966914 No Longer Active Carlton Hu MD Active ZITHROMAX Z-REYNA 250 MG ORAL TABLET 2 today, then 1 daily for 4 d ays AZITHROMYCIN 07158845120 No Longer Active Columba Raida Act nael AUGMENTIN 875-125 MG ORAL TABLET 1 po BID x 10 days 13/01/20 AMOXICILLIN-POT CLAVULANATE 46433074375 No Longer Active Diya De Guzman APRN Active ZITHROMAX 250 MG ORAL TABLET 2 po today, then 1 po q days 2-5 20 12/08/14 AZITHROMYCIN 33620327470 No Longer Active Carlton Hu MD Active TRAMADOL HCL 50 MG ORAL TABLET 1 po tid with ES Tylenol TRAMADOL HCL 76863708223 Active Carlton Hu MD Active PREMARIN 0.625 MG ORAL TABLET TAKE 1 TAB BY MOUTH DAILY ESTROGENS CONJUGATED 15216186105 No Longer Active Ridge Bess DO A ctive CYMBALTA 30 MG ORAL CAPSULE DELAYED RELEASE PARTICLES 1 cap by mouth daily DULOXETINE HCL 42141301590 No Longer Active Ridge tam DO Active AMOXICILLIN 500 MG ORAL CAPSULE 1 tab by mouth 3 times daily x 10 days AMOXICILLIN 05954025001 No Longer Active Carlton bustamante MD Active AMOXICILLIN 500 MG ORAL CAPSULE 1 tab by mouth 3 times daily x 10 days AMOXICILLIN 76119723425 No Longer Active Carlton bustamante MD Active PROMETHAZINE-CODEINE 6.25-10 MG/5ML ORAL SYRUP 1 tsp b y mouth every 8 hours prn cough PROMETHAZINE-CODEINE 94548550203 No Longer Acti ve Carlton Hu MD Active MEDROL 4 MG ORAL TABLET THERAPY PACK 6 pills x 1 day, then 5 pills x 1 day then 4 pills x 1 day, then 3 pills x 1 day, then 2 pills x 1 day, then 1 pill x 1 day, then stop METHYLPREDNISOLONE 82867123430 No Long er Active Perez Mora MD Active AZITHROMYCIN 250 MG ORAL TABLET 2 po qd x 1 day, then 1 po q d x 4 days AZITHROMYCIN 14909400950 No Longer Active Perez Ambriz MD Active SYMBICORT 160-4.5 MCG/ACT INHALATION AEROSOL 2 puffs bid wit h rinse after BUDESONIDE-FORMOTEROL FUMARATE 92659720876 N o Longer Active Perez Mora MD Active LYRICA 75 MG ORAL CAPSULE TAKE 1 CAPSULE BY MOUTH TWICE DAILY PREGABALIN 21036794385 No Longer Active Carlton Hu MD Acti ve TOPAMAX 25 MG ORAL TABLET 1 qHS x 1 week, then 1 BID x 1 week, then 1 qAM and 2 qHS x 1 week, then 2 BID (migraine prevention) T OPIRAMATE 44500060930 No Longer Active Jerica FUENTES Active TOPAMAX 50 MG ORAL TABLET take 1 tab po BID for migraines. 07/02 TOPIRAMATE 14412209010 No Longer Active Jerica FUENTES Active TOPAMAX 100 MG ORAL TABLET Take 1 tablet po bid TO PIRAMATE 86269444844 Active Carlton Hu MD Active TRIAMCINOLONE ACETONIDE 0.1 % EXTERNAL CREAM apply three roger es daily prn rash TRIAMCINOLONE ACETONIDE 12830731375 No Longer Active Carlton Hu MD Active PAXIL 40 MG ORAL TABLET take 1 tab po qday for depression 0 PAROXETINE HCL 17557570023 Active Carlton Hu MD Active CHERATUSSIN AC 100-10 MG/5ML ORAL SYRUP 5ml po q6hr PRN Cough 20 13/04/14 GUAIFENESIN-CODEINE 13166354233 No Longer Active Carlton Hu MD Active MEDROL 4 MG ORAL TABLET THERAPY PACK 6 tabs on day 1, 5 tabs on day 2, 4 tabs on day 3, 3 tabs on day 4, 2 tabs on day 5, 1 tab on day 6 2013 METHYLPREDNISOLONE 33595771922 No Longer Active Perez Mora MD Active AZITHROMYCIN 250 MG ORAL TABLET 2 po qd x 1 day, then 1 po q d x 4 days AZITHROMYCIN 58435554985 No Longer Active Perez Ambriz MD Active PROPRANOLOL HCL 60 MG ORAL TABLET 1 PO Q D PROPRANOLOL HCL 86320663099 No Longer Active Perez Mora MD Activ e CHERATUSSIN AC 100-10 MG/5ML ORAL SYRUP take one tsp po Q 6h ours prn cough GUAIFENESIN-CODEINE 10004841691 No Longer Active Zia Mora MD Active AUGMENTIN 875-125 MG ORAL TABLET 1 tab by mouth twice daily with food AMOXICILLIN-POT CLAVULANATE 04641891189 No Longer Act nael Perez Mora MD Active CHERATUSSIN AC 100-10 MG/5ML ORAL SYRUP 1 tsp by mouth every 4 hours as needed for cough GUAIFENESIN-CODEINE 33864630687 No Longe r Active Hugo Restrepo MD Active ACETAMINOPHEN-CODEINE #3 300-30 MG ORAL TABLET 1 PO Q 4-6 HRS MA N PAIN ACETAMINOPHEN-CODEINE 71216191563 No Longer Active Hugo Restrepo MD Active LEVAQUIN 500 MG ORAL TABLET take one po QD LEVO FLOXACIN 36815704202 No Longer Active Griffin HERNANDEZ Active PREDNISONE 20 MG ORAL TABLET Take 3 tabs daily for 3 d ays, 2 tabs daily for 3 days, 1 tab daily for 3 days, 1/2 tab daily for 3 days 11/07 PREDNISONE 23629260512 No Longer Active Carlton Hu MD Acti ve AVELOX 400 MG ORAL TABLET 1 tab by mouth daily MOXIFLOXACIN HCL 09573799070 No Longer Active Carlton Hu MD Active CHERATUSSIN AC 100-10 MG/5ML ORAL SYRUP 1 tsp by mouth every 4 hours as needed for cough GUAIFENESIN-CODEINE 92935582698 No Longe r Active Hugo Restrepo MD Active AVELOX 400 MG ORAL TABLET 1 tab by mouth daily MOXIFLOXACIN HCL 09881972389 No Longer Active Marcy De La Rosa MD PhD Active TERBINAFINE HCL 250 MG ORAL TABLET 1 qDay T ERBINAFINE HCL 32239216496 No Longer Active Marcy De La Rosa MD PhD Active CHERATUSSIN AC 100-10 MG/5ML ORAL SYRUP 1 tsp by mouth every 4 hours as needed for cough GUAIFENESIN-CODEINE 08450990958 No Longe r Active Marcy De La Rosa MD PhD Active AVELOX 400 MG ORAL TABLET 1 tab by mouth daily MOXIFLOXACIN HCL 69881351148 No Longer Active Marcy De La Rosa MD PhD Active HYDROCODONE-ACETAMINOPHEN 5-325 MG ORAL TABLET 1 po q 6hr PRN co ugh HYDROCODONE-ACETAMINOPHEN 87697717129 No Longer Active Marcy De La Rosa MD PhD Active PREDNISONE 20 MG ORAL TABLET 2 tabs daily for 3 days, 1 tab daily for 3 days, 1/2 tab daily for 2 days PREDNISONE 63508572131 No Longer Active Carlton Hu MD Active CEFDINIR 300 MG ORAL CAPSULE by mouth twice a day 2011 CEFDINIR 05450588043 No Longer Active Carlton Hu MD Acti ve HYDROCHLOROTHIAZIDE 25 MG ORAL TABLET 1 TAB PO DAILY HYDROCHLOROTHIAZIDE 89553727815 Active Carlton Hu MD A ctive ACETAMINOPHEN-CODEINE #3 300-30 MG ORAL TABLET 1 tablet po q 4-6 hrs prn pain ACETAMINOPHEN-CODEINE 17866452632 No Longer Active Ridge Bess DO Active ZITHROMAX 250 MG ORAL TABLET 2 po today, then 1 po q days 2-5 20 03/07/07 AZITHROMYCIN 67045460900 No Longer Active Carlton Hu MD Active CHERATUSSIN AC 100-10 MG/5ML ORAL SYRUP take 1 tsp po q4-6 h ours prn cough GUAIFENESIN-CODEINE 49386207975 No Longer Active Jayden Hu MD Active ACETAMINOPHEN-CODEINE #3 300-30 MG ORAL TABLET 1 PO Q 4-6 HR PRN PAIN ACETAMINOPHEN-CODEINE 60971443674 No Longer Active Arnol Hu MD Active LORTAB 7.5-500 MG/15ML ORAL ELIXIR 7.5 ml po q 4 hour prn cough HYDROCODONE-ACETAMINOPHEN 97744636002 No Longer Active Carlton Hu MD Active PREDNISONE 20 MG ORAL TABLET 1 po bid 3 days, then 1 po q day 3 days PREDNISONE 79722076885 No Longer Active Carlton Hu MD Active CEFDINIR 300 MG ORAL CAPSULE by mouth twice a day 2011 CEFDINIR 33166433152 No Longer Active Carlton Hu MD Acti ve CEFDINIR 300 MG ORAL CAPSULE by mouth twice a day 2010 CEFDINIR 05539243907 No Longer Active Carlton Hu MD Acti ve CEFDINIR 300 MG ORAL CAPSULE by mouth twice a day 2010 CEFDINIR 56240591759 No Longer Active Carlton Hu MD Acti ve TESSALON PERLES 100 MG ORAL CAPSULE 1 tablet by mouth 3 times daily as needed for cough BENZONATATE 20396595716 No Longer Active Carlton Hu MD Active CEFDINIR 300 MG ORAL CAPSULE by mouth twice a day 2010 CEFDINIR 80980526624 No Longer Active Carlton Hu MD Acti ve ZITHROMAX Z-REYNA 250 MG ORAL TABLET 2 today, then 1 daily for 4 d ays AZITHROMYCIN 94405497842 No Longer Active Hugo Restrepo MD Active TESSALON PERLES 100 MG ORAL CAPSULE 1 tablet by mouth 3 times daily as needed for cough TESSALON PERLES 100 MG ORAL CAPSULE 16431 7 BENZONATATE Inactive PREDNISONE 20 MG ORAL TABLET 1 po bid 3 days, then 1 po q day 3 days PREDNISONE 20 MG ORAL TABLET 661509 PREDNISONE [place] ctive LORTAB 7.5-500 MG/15ML ORAL ELIXIR 7.5 [...] cough CHERATUSSIN AC 100-10 MG/5ML ORAL SYRUP 795794 GUAIFENESIN-CODEINE Inactive ACETAMINOPHEN-CODEINE #3 300-30 MG ORAL TABLET 1 tablet po q 4-6 hrs prn pain ACETAMINOPHEN-CODEINE #3 300-30 MG ORAL TABLET ACETAMINOPHEN-CODEINE Inactive HYDROCODONE-ACETAMINOPHEN 5-325 MG ORAL TABLET 1 po q 6hr PRN co ugh HYDROCODONE-ACETAMINOPHEN 5-325 MG ORAL TABLET 050600 HYDROCODONE-ACETAMINOPHEN Inactive AVELOX 400 MG ORAL TABLET 1 tab by mouth daily AVELOX 400 MG ORAL TABLET 374091 MOXIFLOXACIN HCL Inactive CHERATUSSIN AC 100-10 MG/5ML ORAL SYRUP 1 tsp by mouth every 4 hours as needed for cough CHERATUSSIN AC 100-10 MG/5ML ORAL SYRUP 9 19059 GUAIFENESIN-CODEINE Inactive TERBINAFINE HCL 250 MG ORAL TABLET 1 qDay 07/08 TERBINAFINE HCL 250 MG ORAL TABLET 552259 TERBINAFINE HCL Inactive CHERATUSSIN AC 100-10 MG/5ML ORAL SYRUP 1 tsp by mouth every 4 hours as needed for cough CHERATUSSIN AC 100-10 MG/5ML ORAL SYRUP 9 95978 GUAIFENESIN-CODEINE Inactive ACETAMINOPHEN-CODEINE #3 300-30 MG ORAL TABLET 1 PO Q 4-6 HRS MA N PAIN ACETAMINOPHEN-CODEINE #3 300-30 MG ORAL TABLET ACETAMINOPHEN-CODEINE Inactive CHERATUSSIN AC 100-10 MG/5ML ORAL SYRUP 1 tsp by mouth every 4 hours as needed for cough CHERATUSSIN AC 100-10 MG/5ML ORAL SYRUP 9 02717 GUAIFENESIN-CODEINE Inactive AUGMENTIN 875-125 MG ORAL TABLET 1 tab by mouth twice daily with food AUGMENTIN 875-125 MG ORAL TABLET 472208 AMOXICIL MADELINE-POT CLAVULANATE Inactive CHERATUSSIN AC 100-10 MG/5ML ORAL SYRUP take one tsp po Q 6h ours prn cough CHERATUSSIN AC 100-10 MG/5ML ORAL SYRUP 725364 GUAIFENESIN-CODEINE Inactive PROPRANOLOL HCL 60 MG ORAL TABLET 1 PO Q D PROPRANOLOL HCL 60 MG ORAL TABLET 071985 PROPRANOLOL HCL Inactive TOPAMAX 50 MG ORAL TABLET take 1 tab po BID for migraines. 07/02 TOPAMAX 50 MG ORAL TABLET 756280 TOPIRAMATE Inacti ve TOPAMAX 25 MG ORAL TABLET 1 qHS x 1 week, then 1 BID x 1 week, then 1 qAM and 2 qHS x 1 week, then 2 BID (migraine prevention) TOPAMAX 25 MG ORAL TABLET 253103 TOPIRAMATE Inactive LYRICA 75 MG ORAL CAPSULE TAKE 1 CAPSULE BY MOUTH TWICE DAILY LYRICA 75 MG ORAL CAPSULE PREGABALIN Inactive SYMBICORT 160-4.5 MCG/ACT INHALATION AEROSOL 2 puffs bid wit h rinse after SYMBICORT 160-4.5 MCG/ACT INHALATION AEROSOL BUDESONIDE- FORMOTEROL FUMARATE Inactive PROMETHAZINE-CODEINE 6.25-10 MG/5ML ORAL SYRUP 1 tsp b y mouth every 8 hours prn cough PROMETHAZINE-CODEINE 6.25-10 MG/ 5ML ORAL SYRUP 256381 PROMETHAZINE-CODEINE Inactive CYMBALTA 30 MG ORAL CAPSULE DELAYED RELEASE PARTICLES 1 cap by mouth daily CYMBALTA 30 MG ORAL CAPSULE DELAYED RELE ASE PARTICLES 517406 DULOXETINE HCL Inactive PREMARIN 0.625 MG ORAL TABLET TAKE 1 TAB BY MOUTH DAILY PREMARIN 0.625 MG ORAL TABLET ESTROGENS CONJUGATED Inactive CHERATUSSIN AC 100-10 MG/5ML ORAL SYRUP 1 tsp by mouth every 4 hours as needed for cough CHERATUSSIN AC 100-10 MG/5ML ORAL SYRUP 9 68062 GUAIFENESIN-CODEINE Inactive PROMETHAZINE-CODEINE 6.25-10 MG/5ML ORAL SYRUP 1 tsp b y mouth every 6 hours if needed for cough PROMETHAZINE-CODEINE 6.25-10 MG/5ML ORAL SYRUP 029822 PROMETHAZINE-CODEINE Inactive CHERATUSSIN AC 100-10 MG/5ML ORAL SYRUP 1 tsp by mouth every 4 hours as needed for cough CHERATUSSIN AC 100-10 MG/5ML ORAL SYRUP 9 28518 GUAIFENESIN-CODEINE Inactive FLUTICASONE PROPIONATE 50 MCG/ACT NASAL SUSPENSION 1 t o 2 sprays each nostril daily FLUTICASONE PROPIONATE 50 MCG/AC T NASAL SUSPENSION 5559884 FLUTICASONE PROPIONATE Inactive PREDNISONE 20 MG ORAL TABLET 3 tab PO qd x 2d, 2 tab P O qd x 2d, 1 tab PO qd x 2d, 1/2 tab PO qd x 2d PREDNISONE 20 MG ORAL TAB LET 771420 PREDNISONE Inactive LEVOFLOXACIN 500 MG ORAL TABLET 1 tab PO daily x 10 days LEVOFLOXACIN 500 MG ORAL TABLET 443952 LEVOFLOXACIN Inactive CYCLOBENZAPRINE HCL 10 MG ORAL TABLET 1 tablet by mouth BID prn had pain CYCLOBENZAPRINE HCL 10 MG ORAL TABLET 701574 CYCLOBENZAPRINE HCL Inactive ZOCOR 40 MG ORAL TABLET 1 tab by mouth daily 4 ZOCOR 40 MG ORAL TABLET 835617 SIMVASTATIN Inactive TUSSIONEX PENNKINETIC ER 10-8 MG/5ML [...] FLUTICASONE PROPIO EFE 50 MCG/ACT NASAL SUSPENSION 2212313 FLUTICASONE PROPIONATE Inactive TUSSIONEX PENNKINETIC ER 10-8 [...] three days PREDNISONE 20 MG ORAL TABLET 761478 PREDNIS ONE Inactive PROAIR HFA 108 (90 BASE) MCG/ACT INHALATION AEROSOL SO LUTION 2 puffs four times a day as needed PROAIR HFA 108 (90 B ASE) MCG/ACT INHALATION AEROSOL SOLUTION ALBUTEROL SULFATE Inactive ZITHROMAX Z-REYNA 250 MG ORAL TABLET 2 today, then 1 daily for 4 d ays ZITHROMAX Z-REYNA 250 MG ORAL TABLET 975878 AZITHROMYCIN Inactive CEFDINIR 300 MG ORAL CAPSULE by mouth twice a day 2010 CEFDINIR 300 MG ORAL CAPSULE 756480 CEFDINIR Inactive CEFDINIR 300 MG ORAL CAPSULE [...] 2-5 03/07/07 ZITHROMAX 250 MG ORAL TABLET 012926 AZITHROMYCIN [place] ctive CEFDINIR 300 MG ORAL CAPSULE by mouth twice a day 2011 CEFDINIR 300 MG ORAL CAPSULE 20020704 CEFDINIR Inactive PREDNISONE 20 MG ORAL TABLET 2 tabs daily for 3 days, 1 tab daily for 3 days, 1/2 tab daily for 2 days PREDNISONE 20 MG ORAL T ABLET 988795 PREDNISONE Inactive AVELOX 400 MG ORAL TABLET 1 tab by mouth daily AVELOX 400 MG ORAL TABLET 103865 MOXIFLOXACIN HCL Inactive AVELOX 400 MG ORAL TABLET 1 tab by mouth daily AVELOX 400 MG ORAL TABLET 545445 MOXIFLOXACIN HCL Inactive PREDNISONE 20 MG ORAL TABLET Take 3 tabs daily for 3 d ays, 2 tabs daily for 3 days, 1 tab daily for 3 days, 1/2 tab daily for 3 days 11/07 PREDNISONE 20 MG ORAL TABLET 194757 PREDNISONE Inactive LEVAQUIN 500 MG ORAL TABLET take one po QD LEVAQUIN 500 MG ORAL TABLET 402224 LEVOFLOXACIN Inactive AZITHROMYCIN 250 MG ORAL TABLET 2 po qd x 1 day, then 1 po q d x 4 days AZITHROMYCIN 250 MG ORAL TABLET 709937 AZITHROMY GIOVANNI Inactive MEDROL 4 MG ORAL TABLET THERAPY PACK 6 tabs on day 1, 5 tabs on day 2, 4 tabs on day 3, 3 tabs on day 4, 2 tabs on day 5, 1 tab on day 6 2013 MEDROL 4 MG ORAL TABLET THERAPY PACK 358212 METHYLPREDNISOLONE [place] ctive CHERATUSSIN AC 100-10 MG/5ML ORAL SYRUP 5ml po q6hr PRN Cough 20 13/04/14 CHERATUSSIN AC 100-10 MG/5ML ORAL SYRUP 005895 GUAIFENE SIN-CODEINE Inactive TRIAMCINOLONE ACETONIDE 0.1 % EXTERNAL CREAM apply three roger es daily prn rash TRIAMCINOLONE ACETONIDE 0.1 % EXTERNAL CREAM 101 4314 TRIAMCINOLONE ACETONIDE Inactive AZITHROMYCIN 250 MG ORAL TABLET 2 po qd x 1 day, then 1 po q d x 4 days AZITHROMYCIN 250 MG ORAL TABLET 019894 AZITHROMY GIOVANNI Inactive MEDROL 4 MG ORAL TABLET THERAPY PACK 6 pills x 1 day, then 5 pills x 1 day then 4 pills x 1 day, then 3 pills x 1 day, then 2 pills x 1 day, then 1 pill x 1 day, then stop MEDROL 4 MG ORAL TABLET THERAPY PACK 337241 METHYLPREDNISOLONE Inactive AMOXICILLIN 500 MG ORAL CAPSULE 1 tab by mouth 3 times daily x 10 days AMOXICILLIN 500 MG ORAL CAPSULE 381692 AMOXICILL IN Inactive AMOXICILLIN 500 MG ORAL CAPSULE 1 tab by mouth 3 times daily x 10 days AMOXICILLIN 500 MG ORAL CAPSULE 698545 AMOXICILL IN Inactive ZITHROMAX 250 MG ORAL TABLET 2 po today, then 1 po q days 2-5 20 12/08/14 ZITHROMAX 250 MG ORAL TABLET 974470 AZITHROMYCIN [place] ctive AUGMENTIN 875-125 MG ORAL TABLET 1 po BID x 10 days 20 13/01/20 AUGMENTIN 875-125 MG ORAL TABLET 179006 AMOXICILLIN-POT CLAVULANATE Inactive ZITHROMAX Z-REYNA 250 MG ORAL TABLET 2 today, then 1 daily for 4 d ays ZITHROMAX Z-REYNA 250 MG ORAL TABLET 499243 AZITHROMYCIN Inactive ZITHROMAX 250 MG ORAL TABLET 2 po today, then 1 po q days 2-5 20 14/03/21 ZITHROMAX 250 MG ORAL TABLET 088740 AZITHROMYCIN [place] ctive ZITHROMAX Z-REYNA 250 MG ORAL TABLET 2 today, then 1 daily for 4 d ays ZITHROMAX Z-REYNA 250 MG ORAL TABLET 345939 AZITHROMYCIN Inactive CEFDINIR 300 MG ORAL CAPSULE 1 po BID x 10 days 06/21 CEFDINIR 300 MG ORAL CAPSULE 20020704 CEFDINIR Inactive ZITHROMAX 250 MG ORAL TABLET 2 po today, then 1 po q days 2-5 20 13/08/10 ZITHROMAX 250 MG ORAL TABLET 152866 AZITHROMYCIN [place] ctive LEVAQUIN 500 MG ORAL TABLET 1 tablet by mouth daily 13/09/24 LEVAQUIN 500 MG ORAL TABLET 19971102 LEVOFLOXACIN Inactive SINGULAIR 10 MG ORAL TABLET 1 po qday for allergies 20 14/01/12 SINGULAIR 10 MG ORAL TABLET 20010504 MONTELUKAST SODIUM Inactive AMOXICILLIN 500 MG ORAL CAPSULE 2 po BID x 10 days 201 09/29/08 AMOXICILLIN 500 MG ORAL CAPSULE 257936 AMOXICILLIN Inactive PREDNISONE 20 MG ORAL TABLET 2 tabs daily for 3 days, 1 tab daily for 3 days, 1/2 tab daily for 2 days PREDNISONE 20 MG ORAL T ABLET 866312 PREDNISONE Inactive ZITHROMAX Z-REYNA 250 MG ORAL TABLET 2 today, then 1 daily for 4 d ays ZITHROMAX Z-REYNA 250 MG ORAL TABLET 251887 AZITHROMYCIN Inactive PREDNISONE 20 MG ORAL TABLET 2 tabs daily for 3 days, 1 tab daily for 3 days, 1/2 tab daily for 2 days PREDNISONE 20 MG ORAL T ABLET 580649 PREDNISONE Inactive ZITHROMAX 250 MG ORAL TABLET 2 po today, then 1 po q days 2-5 20 14/09/04 ZITHROMAX 250 MG ORAL TABLET 910169 AZITHROMYCIN Greer ctive AMOXICILLIN 500 MG ORAL CAPSULE 1 cap by mouth three times a day AMOXICILLIN 500 MG ORAL CAPSULE 082745 AMOXICILLIN Inactive TERBINAFINE HCL 250 MG ORAL TABLET 1 qDay for nail fungus 7 TERBINAFINE HCL 250 MG ORAL TABLET 571634 TERBINAFINE HCL Inact nael AUGMENTIN 875-125 MG ORAL TABLET 1 po BID x 10 days 16/03/22 AUGMENTIN 875-125 MG ORAL TABLET 119853 AMOXICILLIN-POT CLAVULANATE Inactive PREDNISONE 20 MG ORAL TABLET 2 po qd x 5 days PREDNISONE 20 MG ORAL TABLET 237036 PREDNISONE Inactive Vital Signs Date Name Value [...] - Chem istry sodium, serum 132 mmol/L 833-153 1705/07/12 potassium, serum 2.7 mmol/L 3.5-5.2 chloride, serum 93 mmol/L 98-107 carbon dioxide, venous blood 30.8 mmol/L 21.0-32 .0 blood glucose 107 mg/dL 65-110 calcium, serum 9.3 mg/dL 8.5-10.1 urea nitrogen, blood 12 mg/dL 7-18 creatinine, serum 1.00 mg/dL 0.60-1.30 sodium, serum 142 mmol/L 749-932 4338/07/17 potassium, serum 4.2 mmol/L 3.5-5.2 chloride, serum 106 mmol/L 98-107 carbon dioxide, venous blood 29.9 mmol/L 21.0-32 .0 blood glucose 108 mg/dL 65-110 calcium, serum 9.1 mg/dL 8.5-10.1 urea nitrogen, blood 11 mg/dL 7-18 creatinine, serum 0.81 mg/dL 0.60-1.30 sodium, serum 139 mmol/L 621-946 1637/03/19 potassium, serum 3.6 mmol/L 3.5-5.2 chloride, serum 100 mmol/L 98-107 carbon dioxide, venous blood 30.3 mmol/L 21.0-32 .0 blood glucose 101 mg/dL 65-110 calcium, serum 9.4 mg/dL 8.5-10.1 urea nitrogen, blood 10 mg/dL 7-18 creatinine, serum 0.96 mg/dL 0.60-1.30 Lab Report: Rapid Strep - Lab Microbial identification kit, rapid strep method Negative Negative Encounters Code Encounter Date Provider Facility CPT-08999 Level 3 Est. Patient 11:34:49 MEAT SUPERVISOR Perez Mora MD [facility] CPT-42878 Level 4 Est. Patient 09:51:32 MEAT SUPERVISOR Carlton rich MD [facility] CPT-10086 Level 3 Est. Patient 10:26:00 MEAT SUPERVISOR Elise stephenson APRN [facility] CPT-47258 Level 3 Est. Patient 13:35:41 MEAT SUPERVISOR Carlton rich MD [facility] CPT-82508 Level 3 Est. Patient 10:03:52 MEAT SUPERVISOR Carlton rich MD [facility] CPT-94203 Level 3 Est. Patient 12:17:50 CDT Hugo Restrepo MD [facility] CPT-77788 Level 3 Est. Patient 13:42:38 CDT Elise Are ll [facility] CPT-26436 Level 3 Est. Patient 13:23:51 CDT Diya cobian [facility] CPT-19080 Level 3 Est. Patient 14:22:19 MEAT SUPERVISOR Diya cobian [facility] CPT-96931 Level 3 Est. Patient 10:11:46 CDT Carlton rich MD [facility] CPT-76606 Level 3 Est. Patient 17:29:43 CDT Elise Are [facility] CPT-44015 Level 3 Est. Patient 11:58:06 CDT Elise Are [facility] CPT-29488 Level 4 Est. Patient 14:36:51 CDT Carlton rich MD [facility] CPT-00630 Level 3 Est. Patient 18:16:00 MEAT SUPERVISOR Blaine HERNANDEZ [facility] CPT-38649 Level 3 Est. Patient 09:45:49 MEAT SUPERVISOR Carlton rich MD [facility] CPT-01901 Level 3 Est. Patient 13:19:20 CDT Carlton rich MD [facility] CPT-44183 Level 3 Est. Patient 13:06:43 CDT Ridge tam DO [facility] CPT-50739 Level 3 Est. Patient 10:03:07 CDT Perez Mora MD [facility] CPT-12651 Level 3 Est. Patient 19:50:35 MEAT SUPERVISOR Carlton rich MD [facility] CPT-94237 Level 4 Est. Patient 18:05:01 MEAT SUPERVISOR Carlton rich MD [facility] CPT-86080 Level 3 Est. Patient 10:45:55 MEAT SUPERVISOR Hugo Restrepo MD [facility] CPT-00694 Level 3 Est. Patient 14:12:49 CDT Griffin HERNANDEZ [facility] CPT-68962 Level 3 Est. Patient 17:37:24 CDT Carlton rich MD [facility] CPT-29833 Level 3 Est. Patient 16:51:54 CDT Carlton rich MD [facility] CPT-51882 Level 3 Est. Patient 12:18:11 CDT Hugo Restrepo MD [facility] CPT-70625 Level 3 Est. Patient 11:30:25 CDT Marcy crisostomo MD PhD [facility] CPT-16802 Level 3 Est. Patient 12:00:47 MEAT SUPERVISOR Carlton rich MD [facility] CPT-37929 Level 3 Est. Patient 16:31:06 MEAT SUPERVISOR Carlton rich MD [facility] CPT-99326 Level 3 Est. Patient 16:23:24 MEAT SUPERVISOR Ridge tam DO [facility] CPT-67983 Level 3 Est. Patient 12:34:12 CDT Carlton rich MD [facility] CPT-79396 Level 2 Est. Patient 15:43:33 CDT Robi armstrong MD [facility] CPT-06155 Level 4 Est. Patient 14:04:44 CDT Carlton rich MD [facility] CPT-63011 Level 3 Est. Patient 05:47:59 CDT Ridge tam [facility] CPT-90146 Level 3 Est. Patient 13:12:53 MEAT SUPERVISOR Carlton rich MD [facility] CPT-07140 Level 3 Est. Patient 14:26:53 CDT Hugo Restrepo MD [facility] Procedures Code Procedure Name Date Entry Date Standard Desc ription CPT-J1040 Depo Medrol 80 mg (Methyl Prednisolone A cetate) 10:42:44 CDT CPT-J1100 Decadron 8mg (Dexamethasone) 10:42:44 CDT 2 CPT-J0696 Rocephin 1gm Inj Solr 14:32:13 CDT CPT-J1020 Depo Medrol 60 mg (Methyl Prednisolone A cetate) 14:32:13 CDT CPT-J1100 Decadron 6mg (Dexamethasone) 14:32:13 CDT 2 CPT-28582 Hip bilat min 2V w AP pelvis 13:16:20 CDT 2 CPT-93598 Pelvis only 13:07:33 CDT CPT-82159 Spec Collection and Handling Fee 11:25:12 C DT CPT-91434 Fluzone Quadrivalent Intramuscular Suspe nsion 0.5 ML 14:31:55 CDT CPT-03500 Abx/Therapy Injection 13:28:47 MEAT SUPERVISOR CPT-J2930 Solu Medrol 125 mg (Methyl Prednisolone Sodium Succinate) 12:00:47 MEAT SUPERVISOR CPT-21193 Venipuncture Draw Fee 11:33:31 CDT CPT-80898 EKG Trac and Interp 11:21:09 CDT CPT-25930 Chest 2V Frontal and Lat 11:21:09 CDT 12/15 CPT-60035 Venipuncture Draw Fee 08:02:34 CDT CPT-56178 Chest 2V Frontal and Lat 05:47:59 CDT 06/05
--- OUTSIDE RECORDS SUMMARY | 2019-10-08 08:24 | XMS REPORT | Clinical Summary ---
Author Author Caitlin, Juliana Martinez Organization [facility] Address Unknown Phone Unavailable Allergies, Adverse [...] and thigh Pelvic pain, acute 789.09 Active iRdge Bess DO Abdominal pain, other specified site; [...] Generic Name ND Status Provider Patient Instruction ZITHROMAX 250 MG TAB 2 po today, then 1 po q days 2-5 AZITHROMYCIN 86579418878 No Longer Active Carlton Hu MD Acti ve TRAMADOL HCL 50 MG TABS 1 po tid with ES Tylenol TRAMADOL HCL 32864132590 Active Ridge Bess DO Active PREMARIN 0.625 MG TABS TAKE 1 TAB BY MOUTH DAILY 07/25 ESTROGENS CONJUGATED 49081606600 No Longer Active Ridge Bess DO Active CYMBALTA 30 MG CPEP 1 cap by mouth daily DULOXE SNEHA HCL 35936111153 No Longer Active Ridge Bess DO Active AMOXICILLIN 500 MG CAP 1 tab by mouth 3 times daily x 10 days 20 14/04/28 AMOXICILLIN 14545603579 No Longer Active Carlton Hu MD Active AMOXICILLIN 500 MG CAP 1 tab by mouth 3 times daily x 10 days 20 13/03/08 AMOXICILLIN 03144219218 No Longer Active Carlton Hu MD Active CHERATUSSIN AC 100-10 MG/5ML SYRP 1 tsp by mouth every 4 hours as needed for cough GUAIFENESIN-CODEINE 27676456194 Active Carlton banks MD Active CYCLOBENZAPRINE HCL 10 MG TABS 1 tablet by mouth BID prn had pain 2 CYCLOBENZAPRINE HCL 10913189133 Active Carlton Hu MD A ctive PROMETHAZINE-CODEINE 6.25-10 MG/5ML SYRP 1 tsp by mouth ever y 8 hours prn cough PROMETHAZINE-CODEINE 10202804893 No Longer Active Robert Hu MD Active MEDROL (REYNA) 4 MG TABS 6 pills x 1 day, then 5 pill s x 1 day then 4 pills x 1 day, then 3 pills x 1 day, then 2 pills x 1 day, then 1 pill x 1 day, then stop METHYLPREDNISOLONE 94200115260 No Longer Active Parris Mora MD Active AZITHROMYCIN 250 MG TABS 2 po qd x 1 day, then 1 po qd x 4 days AZITHROMYCIN 31298197478 No Longer Active Perez Mora MD Active SYMBICORT 160-4.5 MCG/ACT AERO 2 puffs bid with rinse after 2011 BUDESONIDE-FORMOTEROL FUMARATE 62956332879 No Longer Active Perez Mora MD Active LYRICA 75 MG CAPS TAKE 1 CAPSULE BY MOUTH TWICE DAILY 2013 PREGABALIN 41339601854 No Longer Active Carlton Hu MD Active LYRICA 100 MG CAPS Take 1 tab po BID for fibromyalgia PREGABALIN 47662348942 Active Carlton Hu MD Active TOPAMAX 25 MG TABS 1 qHS x 1 week, then 1 BID x 1 week, then 1 qAM and 2 qHS x 1 week, then 2 BID (migraine prevention) TOPIRAMAT E 87320071005 No Longer Active Jerica Jonesema RMA Active TOPAMAX 50 MG TABS take 1 tab po BID for migraines. 12/07/10 TOPIRAMATE 61063267869 No Longer Active Jerica Osei RMA Ac tive TOPAMAX 100 MG TABS Take 1 tablet po bid TOPIRAMATE 4999 8279373 Active Carlton Hu MD Active TRIAMCINOLONE ACETONIDE 0.1 % CREA apply three times daily prn r beatrice TRIAMCINOLONE ACETONIDE 03431429690 No Longer Active Carlton Hu MD Active PAXIL 40 MG TAB take 1 tab po qday for depression PAROXETINE HCL 40697058015 Active Carlton Hu MD Active CHERATUSSIN AC 100-10 MG/5ML SYRP 5ml po q6hr PRN Cough GUAIFENESIN-CODEINE 94906236059 No Longer Active Carlton Hu MD Active MEDROL (REYNA) 4 MG TABS 6 tabs on day 1, 5 tabs on d ay 2, 4 tabs on day 3, 3 tabs on day 4, 2 tabs on day 5, 1 tab on day 6 METHYLPREDNISOLONE 15143369301 No Longer Active Perez Mora MD Active AZITHROMYCIN 250 MG TABS 2 po qd x 1 day, then 1 po qd x 4 days AZITHROMYCIN 17732628759 No Longer Active Perez Mora MD Active PROPRANOLOL HCL 60 MG TABS 1 PO Q D PROPRANOL OL HCL 57236277660 No Longer Active Perez Mora MD Active CHERATUSSIN AC 100-10 MG/5ML SYRP take one tsp po Q 6hours prn c ough GUAIFENESIN-CODEINE 95211266775 No Longer Active Perez Means Active AUGMENTIN 875-125 MG TAB 1 tab by mouth twice daily with food 20 12/03/31 AMOXICILLIN-POT CLAVULANATE 53240651224 No Longer Active Chanel Mora MD Active CHERATUSSIN AC 100-10 MG/5ML SYRP 1 tsp by mouth every 4 hours as needed for cough GUAIFENESIN-CODEINE 74288527477 No Longer Activ e Hugo Restrepo MD Active ACETAMINOPHEN-CODEINE #3 300-30 MG TABS 1 PO Q 4-6 HRS PRN PAIN ACETAMINOPHEN-CODEINE 73991418852 No Longer Active Hugo Restrepo MD Active LEVAQUIN 500 MG TABS take one po QD LEVOFLOXACI N 92236708688 No Longer Active Griffin HERNANDEZ Active PREDNISONE 20 MG TAB Take 3 tabs daily for 3 days , 2 tabs daily for 3 days, 1 tab daily for 3 days, 1/2 tab daily for 3 days P REDNISONE 90709612057 No Longer Active Carlton Hu MD Active AVELOX 400 MG TABS 1 tab by mouth daily MOXIFLO XACIN HCL 67208885824 No Longer Active Carlton Hu MD Active CHERATUSSIN AC 100-10 MG/5ML SYRP 1 tsp by mouth every 4 hours as needed for cough GUAIFENESIN-CODEINE 96220241916 No Longer Activ e Hugo Restrepo MD Active AVELOX 400 MG TABS 1 tab by mouth daily MOXIFLO XACIN HCL 00156589475 No Longer Active Marcy De La Rosa MD PhD Active TERBINAFINE HCL 250 MG TABS 1 qDay TERBINAF INE HCL 50832568254 No Longer Active Marcy De La Rosa MD PhD Active CHERATUSSIN AC 100-10 MG/5ML SYRP 1 tsp by mouth every 4 hours as needed for cough GUAIFENESIN-CODEINE 26808036300 No Longer Activ e Marcy De La Rosa MD PhD Active AVELOX 400 MG TABS 1 tab by mouth daily MOXIFLO XACIN HCL 98444787516 No Longer Active Marcy De La Rosa MD PhD Active HYDROCODONE-ACETAMINOPHEN 5-325 MG TABS 1 po q 6hr PRN cough 201 05/09/16 HYDROCODONE-ACETAMINOPHEN 19839427603 No Longer Active Marcy De La Rosa MD PhD Active PREDNISONE 20 MG TAB 2 tabs daily for 3 days, 1 t ab daily for 3 days, 1/2 tab daily for 2 days PREDNISONE 53807689672 No Longer Active Carlton Hu MD Active CEFDINIR 300 MG CAPS by mouth twice a day CEFDI ODILIA 08816132978 No Longer Active Carlton Hu MD Active ZOCOR 40 MG TAB 1 tab by mouth daily SIMVASTATIN 77693285574 Active Carlton Hu MD Active HYDROCHLOROTHIAZIDE 25 MG TABS 1 TAB PO DAILY H YDROCHLOROTHIAZIDE 20055012405 Active Carlton Hu MD Active ACETAMINOPHEN-CODEINE #3 300-30 MG TABS 1 tablet po q 4-6hrs prn pain ACETAMINOPHEN-CODEINE 81285782945 No Longer Active Ridge Bess DO Active ZITHROMAX 250 MG TAB 2 po today, then 1 po q days 2-5 AZITHROMYCIN 69034743116 No Longer Active Carlton Hu MD Acti ve CHERATUSSIN AC 100-10 MG/5ML SYRP take 1 tsp po q4-6 hours prn c ough GUAIFENESIN-CODEINE 46322503472 No Longer Active Carlton Hu MD Active ACETAMINOPHEN-CODEINE #3 300-30 MG TABS 1 PO Q 4-6 HR PRN PAIN 2 ACETAMINOPHEN-CODEINE 46665149187 No Longer Active Carlton rich MD Active LORTAB 7.5-500 MG/15ML ELIX 7.5 ml po q 4 hour prn cough HYDROCODONE-ACETAMINOPHEN 00229432052 No Longer Active Carlton Hu MD Active PREDNISONE 20 MG TAB 1 po bid 3 days, then 1 po q day 3 days 201 05/03/07 PREDNISONE 73869783784 No Longer Active Carlton Hu MD Active ELMIRON 100 MG CAPS 2 tablets in the am and 1 tablet at hs PENTOSAN POLYSULFATE SODIUM 63021322402 Active Graciemaximiliano Hernandezr Active CEFDINIR 300 MG CAPS by mouth twice a day CEFDI ODILIA 81364676077 No Longer Active Carlton Hu MD Active CEFDINIR 300 MG CAPS by mouth twice a day CEFDI ODILIA 61806049608 No Longer Active Carlton Hu MD Active CEFDINIR 300 MG CAPS by mouth twice a day CEFDI ODILIA 81452517922 No Longer Active Carlton Hu MD Active TESSALON PERLES 100 MG CAP 1 tablet by mouth 3 times daily a s needed for cough BENZONATATE 88888140414 No Longer Active Carlton bustamante MD Active CEFDINIR 300 MG CAPS by mouth twice a day CEFDI ODILIA 89908571568 No Longer Active Carlton Hu MD Active ZITHROMAX Z-REYNA 250 MG TABS 2 today, then 1 daily for 4 days 201 04/09/17 AZITHROMYCIN 58853478899 No Longer Active Hugo Restrepo MD Active TESSALON PERLES 100 MG CAP 1 tablet by mouth 3 times daily a s needed for cough TESSALON PERLES 100 MG CAP 260752 BENZONATATE I nactive PREDNISONE 20 MG TAB 1 po bid 3 days, then 1 po q day 3 days 201 05/03/07 PREDNISONE 20 MG TAB 322393 PREDNISONE Inactive LORTAB 7.5-500 MG/15ML ELIX 7.5 ml po q 4 hour prn cough LORTAB 7.5-500 MG/15ML ELIX HYDROCODONE-ACETAMINOPHEN Inacti ve ACETAMINOPHEN-CODEINE #3 300-30 MG TABS 1 PO Q 4-6 HR PRN PAIN 2 ACETAMINOPHEN-CODEINE #3 300-30 MG TABS 506235 ACETAMIN OPHEN-CODEINE Inactive CHERATUSSIN AC 100-10 MG/5ML SYRP take 1 tsp po q4-6 hours prn c ough CHERATUSSIN AC 100-10 MG/5ML SYRP 632255 GUAIFENESIN-CO DEINE Inactive ACETAMINOPHEN-CODEINE #3 300-30 MG TABS 1 tablet po q 4-6hrs prn pain ACETAMINOPHEN-CODEINE #3 300-30 MG TABS 365839 ACETAMIN OPHEN-CODEINE Inactive HYDROCODONE-ACETAMINOPHEN 5-325 MG TABS 1 po q 6hr PRN cough 201 05/09/16 HYDROCODONE-ACETAMINOPHEN 5-325 MG TABS 476023 HYDROCODONE-ACETAMINOPHEN Inactive AVELOX 400 MG TABS 1 tab by mouth daily A VELOX 400 MG TABS 826457 MOXIFLOXACIN HCL Inactive CHERATUSSIN AC 100-10 MG/5ML SYRP 1 tsp by mouth every 4 hours as needed for cough CHERATUSSIN AC 100-10 MG/5ML SYRP 338595 GUAIFENESIN-CODEINE Inactive TERBINAFINE HCL 250 MG TABS 1 qDay TERBINAFINE HCL 250 MG TABS 030724 TERBINAFINE HCL Inactive CHERATUSSIN AC 100-10 MG/5ML SYRP 1 tsp by mouth every 4 hours as needed for cough CHERATUSSIN AC 100-10 MG/5ML SYRP 635424 GUAIFENESIN-CODEINE Inactive ACETAMINOPHEN-CODEINE #3 300-30 MG TABS 1 PO Q 4-6 HRS PRN PAIN ACETAMINOPHEN-CODEINE #3 300-30 MG TABS 639472 ACETAMINOPHEN-CODEIN E Inactive CHERATUSSIN AC 100-10 MG/5ML SYRP 1 tsp by mouth every 4 hours as needed for cough CHERATUSSIN AC 100-10 MG/5ML SYRP 800009 GUAIFENESIN-CODEINE Inactive AUGMENTIN 875-125 MG TAB 1 tab by mouth twice daily with food 20 12/03/31 AUGMENTIN 875-125 MG TAB 980183 AMOXICILLIN-POT CLAVULA EFE Inactive CHERATUSSIN AC 100-10 MG/5ML SYRP take one tsp po Q 6hours prn c ough CHERATUSSIN AC 100-10 MG/5ML SYRP 851916 GUAIFENESIN-CO DEINE Inactive PROPRANOLOL HCL 60 MG TABS 1 PO Q D P ROPRANOLOL HCL 60 MG TABS 953549 PROPRANOLOL HCL Inactive TOPAMAX 50 MG TABS take 1 tab po BID for migraines. 12/07/10 TOPAMAX 50 MG TABS 181352 TOPIRAMATE Inactive TOPAMAX 25 MG TABS 1 qHS x 1 week, then 1 BID x 1 week, then 1 qAM and 2 qHS x 1 week, then 2 BID (migraine prevention) TOPAMAX 2 5 MG TABS 681722 TOPIRAMATE Inactive LYRICA 75 MG CAPS TAKE 1 CAPSULE BY MOUTH TWICE DAILY LYRICA 75 MG CAPS PREGABALIN Inactive SYMBICORT 160-4.5 MCG/ACT AERO 2 puffs bid with rinse after 2011 SYMBICORT 160-4.5 MCG/ACT AERO BUDESONIDE-FORMOT SÁNCHEZ FUMARATE Inactive PROMETHAZINE-CODEINE 6.25-10 MG/5ML SYRP 1 tsp by mouth ever y 8 hours prn cough PROMETHAZINE-CODEINE 6.25-10 MG/5ML SYRP 203562 PROMETHAZINE-CODEINE Inactive CYMBALTA 30 MG CPEP 1 cap by mouth daily CYMBALTA 30 MG CPEP 079104 DULOXETINE HCL Inactive PREMARIN 0.625 MG TABS TAKE 1 TAB BY MOUTH DAILY 07/25 PREMARIN 0.625 MG TABS ESTROGENS CONJUGATED Inactive ZITHROMAX Z-REYNA 250 MG TABS 2 today, then 1 daily for 4 days 201 04/09/17 ZITHROMAX Z-REYNA 250 MG TABS 4881389 AZITHROMYCIN Inac tive CEFDINIR 300 MG CAPS [...] q days 2-5 ZITHROMAX 250 MG TAB 8855046 AZITHROMYCIN Inactive CEFDINIR 300 MG CAPS by mouth twice a day CEFDINIR 300 MG CAPS 20020704 CEFDINIR Inactive PREDNISONE 20 MG TAB 2 tabs daily for 3 days, 1 t ab daily for 3 days, 1/2 tab daily for 2 days PREDNISONE 20 MG TAB 291703 PREDNISON E Inactive AVELOX 400 MG TABS 1 tab by mouth daily A VELOX 400 MG TABS 831491 MOXIFLOXACIN HCL Inactive AVELOX 400 MG TABS 1 tab by mouth daily A VELOX 400 MG TABS 997061 MOXIFLOXACIN HCL Inactive PREDNISONE 20 MG TAB Take 3 tabs daily for 3 days , 2 tabs daily for 3 days, 1 tab daily for 3 days, 1/2 tab daily for 3 days PREDNISONE 20 MG TAB 964124 PREDNISONE Inactive LEVAQUIN 500 MG TABS take one po QD LEVAQUIN 50 0 MG TABS 478666 LEVOFLOXACIN Inactive AZITHROMYCIN 250 MG TABS 2 po qd x 1 day, then 1 po qd x 4 days AZITHROMYCIN 250 MG TABS 7191603 AZITHROMYCIN Inactiv e MEDROL (REYNA) 4 MG TABS 6 tabs on day 1, 5 tabs on d ay 2, 4 tabs on day 3, 3 tabs on day 4, 2 tabs on day 5, 1 tab on day 6 MEDROL (REYNA) 4 MG TABS METHYLPREDNISOLONE Inactive CHERATUSSIN AC 100-10 MG/5ML SYRP 5ml po q6hr PRN Cough CHERATUSSIN AC 100-10 MG/5ML SYRP 626264 GUAIFENESIN-CODEINE Inacti ve TRIAMCINOLONE ACETONIDE 0.1 % CREA apply three times daily prn r beatrice TRIAMCINOLONE ACETONIDE 0.1 % CREA 9827826 TRIAMCINOLONE ACETONIDE Inactive AZITHROMYCIN 250 MG TABS 2 po qd x 1 day, then 1 po qd x 4 days AZITHROMYCIN 250 MG TABS 0793678 AZITHROMYCIN Inactiv e MEDROL (REYNA) 4 MG [...] days 20 13/03/08 AMOXICILLIN 500 MG CAP 523736 AMOXICILLIN Inactive AMOXICILLIN 500 MG CAP 1 tab by mouth 3 times daily x 10 days 20 14/04/28 AMOXICILLIN 500 MG CAP 329902 AMOXICILLIN Inactive ZITHROMAX 250 MG TAB 2 po today, then 1 po q days 2-5 ZITHROMAX 250 MG TAB 5687020 AZITHROMYCIN Inactive Vital Signs Date Name Value [...] 11 .6-14.8 platelet count 371 10^3/MM^3 10*3/mm3 417-021 1355/10/23 mean corpuscular volume, RBC 90 fL 80-97 hematocrit, blood 43.9 % 36.0-46.0 hemoglobin, blood 15.0 g/dL 12.0-16.0 erythrocyte (RBC) count 4.89 10^6/MM^3 10*6/mm3 4.04-5.4 8 leukocyte count, blood 4.1 10^3/MM^3 10*3/mm3 4.6-10.2 Encounters Code Encounter Date Provider Facility CPT-40022 Level 3 Est. Patient 13:19:20 CDT Carlton rich MD [facility] CPT-65695 Level 3 Est. Patient 13:06:43 CDT Ridge tam DO [facility] CPT-10897 Level 3 Est. Patient 10:03:07 CDT Perez Mora MD [facility]-22095 Level 3 Est. Patient 19:50:35 POLYMER CHEMIST Carlton rich MD [facility]-15716 Level 4 Est. Patient 18:05:01 POLYMER CHEMIST Carlton rich MD [facility]-44163 Level 3 Est. Patient 10:45:55 POLYMER CHEMIST Hugo Restrepo MD [facility]-54906 Level 3 Est. Patient 14:12:49 CDT Griffin HERNANDEZ [facility] CPT-95517 Level 3 Est. Patient 17:37:24 CDT Carlton rich MD [facility]-57346 Level 3 Est. Patient 16:51:54 CDT Carlton rich MD [facility]-80474 Level 3 Est. Patient 12:18:11 CDT Hugo Restrepo MD [facility]-00121 Level 3 Est. Patient 11:30:25 CDT Marcy crisostomo MD PhD [facility]-42101 Level 3 Est. Patient 12:00:47 POLYMER CHEMIST Carlton rich MD [facility]-53599 Level 3 Est. Patient 16:31:06 POLYMER CHEMIST Carlton rich MD [facility]-62451 Level 3 Est. Patient 16:23:24 POLYMER CHEMIST Ridge tam DO [facility]-08967 Level 3 Est. Patient 12:34:12 CDT Carlton rihc MD [facility] CPT-17760 Level 2 Est. Patient 15:43:33 CDT Robi armstrong MD [facility] CPT-52141 Level 4 Est. Patient 14:04:44 CDT Carlton rich MD [facility] CPT-45312 Level 3 Est. Patient 05:47:59 CDT Ridge tam DO [facility] CPT-81717 Level 3 Est. Patient 13:12:53 POLYMER CHEMIST Carlton rich MD [facility] CPT-82650 Level 3 Est. Patient 14:26:53 CDT Hugo Restrepo MD [facility] Procedures Code Procedure Name Date Entry Date Standard Desc ription CPT-66680 Hip bilat min 2V w AP pelvis 13:16:20 CDT 2 CPT-40913 Pelvis only 13:07:33 CDT CPT-35209 Spec Collection and Handling Fee 11:25:12 C DT CPT-80844 Fluzone Quadrivalent Intramuscular Suspe nsion 0.5 ML 14:31:55 CDT CPT-74977 Abx/Therapy Injection 13:28:47 POLYMER CHEMIST CPT-J2930 Solu Medrol 125 mg (Methyl Prednisolone Sodium Succinate) 12:00:47 POLYMER CHEMIST CPT-52352 Venipuncture Draw Fee 11:33:31 CDT CPT-93175 EKG Trac and Interp 11:21:09 CDT CPT-19947 Chest 2V Frontal and Lat 11:21:09 CDT 12/15 CPT-23948 Venipuncture Draw Fee 08:02:34 CDT CPT-21517 Chest 2V Frontal and Lat 05:47:59 CDT 06/05
--- OUTSIDE RECORDS SUMMARY | 2019-10-08 08:24 | XMS REPORT | Clinical Summary ---
Author Author Caitlin, Juliana Martinez Organization [employer] [facility] Address Unknown Phone Unavailable Allergies, Adverse [...] Ph D CONTACT DERMATITIS ICD-692.9 Inactive Marcy rcisostomo MD PhD SINUSITIS, ACUTE ICD-461.9 Inactive Hugo [...] Generic Name NDC Status Provider Patient Instruction ASPIRIN 81 MG ORAL TABLET 1 po qd ASPIRIN [id number] Active Carlton Hu MD Active PREDNISONE 20 MG ORAL TABLET 1 tab twice daily for 3 d ay, then one daily for three days PREDNISONE 70124333549 No Longer Active Carlton Hu MD Active AUGMENTIN 875-125 MG ORAL TABLET 1 po BID x 10 days 20 16/03/22 AMOXICILLIN-POT CLAVULANATE 70700140586 No Longer Active Elise Whitmore APRN Active TERBINAFINE HCL 250 MG ORAL TABLET 1 qDay for nail fungus 7 TERBINAFINE HCL 11272266469 No Longer Active Carlton Hu MD A ctive TUSSIONEX PENNKINETIC ER 10-8 MG/5ML ORAL SUSPENSION E XTENDED RELEASE 5ml po q12hr PRN Cough HYDROCOD POLST-CHLORPHEN POLST 20341917931 Active Carlton Hu MD Active AMOXICILLIN 500 MG ORAL CAPSULE 1 cap by mouth three times a day AMOXICILLIN 54805061444 No Longer Active Carlton Hu MD Active ELMIRON 100 MG ORAL CAPSULE 2 tablets in the am and 1 tablet at hs PENTOSAN POLYSULFATE SODIUM 35324554688 No Longer Active Robert Hu MD Active MUCINEX D 60-600 MG ORAL TABLET EXTENDED RELEASE 12 HOUR 1 t ab po q am PSEUDOEPHEDRINE-GUAIFENESIN 67016633984 No Longer Act nael Carlton Hu MD Active MUCINEX DM MAXIMUM STRENGTH 60-1200 MG ORAL TABLET EXT ENDED RELEASE 12 HOUR 1 tab po q am DEXTROMETHORPHAN-GUAIFENESIN 48652627825 No Longer Active Carlton Hu MD Active TUSSIONEX PENNKINETIC ER 10-8 MG/5ML ORAL SUSPENSION E XTENDED RELEASE 5ml po q12hr PRN Cough HYDROCOD POLST-CHLORPHEN POLST 5 9832236050 No Longer Active Carlton Hu MD Active POTASSIUM CHLORIDE ER 20 MEQ ORAL TABLET EXTENDED RELE ASE Take 1 by mouth 4 times daily for 7 days POTASSIUM CHLORIDE 90294502660 No Longer Active Carlton Hu MD Active ZITHROMAX 250 MG ORAL TABLET 2 po today, then 1 po q days 2-5 20 14/09/04 AZITHROMYCIN 61909358661 No Longer Active Elise Whitmore APRN Active TUSSIONEX PENNKINETIC ER 10-8 MG/5ML ORAL SUSPENSION E XTENDED RELEASE 5 ml twice a day as needed for cough HYDROCOD POLST-CHLORPH EN POLST 07839249703 No Longer Active Elise Whitmore APRN Active MONTELUKAST SODIUM 10 MG ORAL TABLET 1 po daily for Allergy MONTELUKAST SODIUM 92283481645 Active Carlton Hu MD Ac tive TUSSIONEX PENNKINETIC ER 10-8 MG/5ML ORAL SUSPENSION E XTENDED RELEASE 5ml po q12hr PRN Cough HYDROCOD POLST-CHLORPHEN POLST 5 1107433586 No Longer Active Hugo Restrepo MD Active GABAPENTIN 100 MG ORAL CAPSULE 1 po BID for fibromyalgia GABAPENTIN 38397730851 Active Carlton Hu MD Active LYRICA 100 MG ORAL CAPSULE Take 1 tab po BID for fibromyalgia 20 11/08/21 PREGABALIN 78543810914 No Longer Active Elise Whitmore APRN Active PROAIR HFA 108 (90 Base) MCG/ACT INHALATION AEROSOL SO LUTION 2 puffs four times a day as needed ALBUTEROL SULFATE 11447030991 Active Lyndsay Whitmore APRN Active PREDNISONE 20 MG ORAL TABLET 2 tabs daily for 3 days, 1 tab daily for 3 days, 1/2 tab daily for 2 days PREDNISONE 38523473444 No Longer Active Jillina Frakerriel BILL Active TUSSIONEX PENNKINETIC ER 10-8 MG/5ML ORAL SUSPENSION E XTENDED RELEASE 5 mL PO q 12 hrs PRN cough HYDROCOD POLST-CHLORPHEN POLST 858316 66088 No Longer Active Jillina Frazell PATIENT COORDINATOR Active FLUTICASONE PROPIONATE 50 MCG/ACT NASAL SUSPENSION 2 s prays each nostril daily until bottle is empty FLUTICASONE PROPIONATE 721733578 99 No Longer Active Jillina Frazell PATIENT COORDINATOR Active ASMANEX 60 METERED DOSES 220 MCG/INH INHALATION AEROSO L POWDER BREATH ACTIVATED 1 puff bid with rinse after MOMETASONE FUROATE 9826443 4102 No Longer Active Diya De Guzman APRN Active ZITHROMAX Z-REYNA 250 MG ORAL TABLET 2 today, then 1 daily for 4 d ays AZITHROMYCIN 38329878304 No Longer Active Elise Whitmore APRN Active TUSSIONEX PENNKINETIC ER 10-8 MG/5ML ORAL SUSPENSION E XTENDED RELEASE 5ml po q12hr PRN Cough HYDROCOD POLST-CHLORPHEN POLST 5 5240659989 No Longer Active Elise Whitmore APRN Active PREDNISONE 20 MG ORAL TABLET 2 tabs daily for 3 days, 1 tab daily for 3 days, 1/2 tab daily for 2 days PREDNISONE 32066668723 No Longer Active Diya De Guzmna APRN Active AMOXICILLIN 500 MG ORAL CAPSULE 2 po BID x 10 days 201 09/29/08 AMOXICILLIN 81868198391 No Longer Active Diya De Guzman APRN Act nael SINGULAIR 10 MG ORAL TABLET 1 po qday for allergies 20 14/01/12 MONTELUKAST SODIUM 59227427138 No Longer Active Carlton Hu MD Active LEVAQUIN 500 MG ORAL TABLET 1 tablet by mouth daily 20 13/09/24 LEVOFLOXACIN 35464112489 No Longer Active Carlton Hu MD Acti ve FLUTICASONE PROPIONATE 50 MCG/ACT NASAL SUSPENSION 2 s prays each nostril daily for 2 weeks, then 1 spray each nostril daily. FLUTICASONE PROPIONATE 42209727491 Active Elise Whitmore APRN Active ZITHROMAX 250 MG ORAL TABLET 2 po today, then 1 po q days 2-5 20 13/08/10 AZITHROMYCIN 25007659225 No Longer Active Elise Whitmore APRN Active XANAX 0.5 MG ORAL TABLET one tablet by mouth daily prn anxiety 2015 ALPRAZOLAM 06994550559 Active Carlton Hu MD Active CYMBALTA 30 MG ORAL CAPSULE DELAYED RELEASE PARTICLES 1 cap by mouth daily for depression DULOXETINE HCL 47069300665 Active Carlton beltrán MD Active CEFDINIR 300 MG ORAL CAPSULE 1 po BID x 10 days CEFDINIR 19116588378 No Longer Active Carlton Hu MD Active ZOCOR 40 MG ORAL TABLET 1 tab by mouth daily SI MVASTATIN 95219704999 No Longer Active Carlton Hu MD Active CYCLOBENZAPRINE HCL 10 MG ORAL TABLET 1 tablet by mouth BID prn had pain CYCLOBENZAPRINE HCL 58475883871 No Longer Active Jayden Hu MD Active LEVOFLOXACIN 500 MG ORAL TABLET 1 tab PO daily x 10 days LEVOFLOXACIN 87294441285 No Longer Active Carlton uH MD Acti ve PREDNISONE 20 MG ORAL TABLET 3 tab PO qd x 2d, 2 tab P O qd x 2d, 1 tab PO qd x 2d, 1/2 tab PO qd x 2d PREDNISONE 21333413443 No Lo nger Active Carlton Hu MD Active FLUTICASONE PROPIONATE 50 MCG/ACT NASAL SUSPENSION 1 t o 2 sprays each nostril daily FLUTICASONE PROPIONATE 12982111907 No Longer Ac tive Blaine HERNANDEZ Active CHERATUSSIN AC 100-10 MG/5ML ORAL SYRUP 1 tsp by mouth every 4 hours as needed for cough GUAIFENESIN-CODEINE 06334163489 No Longe r Active Blaine HERNANDEZ Active PROMETHAZINE-CODEINE 6.25-10 MG/5ML ORAL SYRUP 1 tsp b y mouth every 6 hours if needed for cough PROMETHAZINE-CODEINE 95491320538 No Longer Active Blaine HERNANDEZ Active CHERATUSSIN AC 100-10 MG/5ML ORAL SYRUP 1 tsp by mouth every 4 hours as needed for cough GUAIFENESIN-CODEINE 04271232249 No Longe r Active Blaine HERNANDEZ Active ZITHROMAX Z-REYNA 250 MG ORAL TABLET 2 today, then 1 daily for 4 d ays AZITHROMYCIN 81072931584 No Longer Active Columba Raida Act nael ZITHROMAX 250 MG ORAL TABLET 2 po today, then 1 po q days 2-5 20 14/03/21 AZITHROMYCIN 02378021496 No Longer Active Carlton Hu MD Active ZITHROMAX Z-REYNA 250 MG ORAL TABLET 2 today, then 1 daily for 4 d ays AZITHROMYCIN 03401114713 No Longer Active Columba Raida Act nael AUGMENTIN 875-125 MG ORAL TABLET 1 po BID x 10 days 13/01/20 AMOXICILLIN-POT CLAVULANATE 45467696876 No Longer Active Diay De Guzman APRN Active ZITHROMAX 250 MG ORAL TABLET 2 po today, then 1 po q days 2-5 12/08/14 AZITHROMYCIN 69226136969 No Longer Active Carlton Hu MD Active TRAMADOL HCL 50 MG ORAL TABLET 1 po tid with ES Tylenol TRAMADOL HCL 20035148767 Active Carlton Hu MD Active PREMARIN 0.625 MG ORAL TABLET TAKE 1 TAB BY MOUTH DAILY ESTROGENS CONJUGATED 53140890899 No Longer Active Ridge Bess DO A ctive CYMBALTA 30 MG ORAL CAPSULE DELAYED RELEASE PARTICLES 1 cap by mouth daily DULOXETINE HCL 64271219319 No Longer Active Ridge tam DO Active AMOXICILLIN 500 MG ORAL CAPSULE 1 tab by mouth 3 times daily x 10 days AMOXICILLIN 27598079718 No Longer Active Carlton bustamante MD Active AMOXICILLIN 500 MG ORAL CAPSULE 1 tab by mouth 3 times daily x 10 days AMOXICILLIN 66341610613 No Longer Active Carlton bustamante MD Active PROMETHAZINE-CODEINE 6.25-10 MG/5ML ORAL SYRUP 1 tsp b y mouth every 8 hours prn cough PROMETHAZINE-CODEINE 04918542071 No Longer Acti ve Carlton Hu MD Active MEDROL 4 MG ORAL TABLET THERAPY PACK 6 pills x 1 day, then 5 pills x 1 day then 4 pills x 1 day, then 3 pills x 1 day, then 2 pills x 1 day, then 1 pill x 1 day, then stop METHYLPREDNISOLONE 12694506888 No Long er Active Perez Mora MD Active AZITHROMYCIN 250 MG ORAL TABLET 2 po qd x 1 day, then 1 po q d x 4 days AZITHROMYCIN 79037964797 No Longer Active Perez Ambriz MD Active SYMBICORT 160-4.5 MCG/ACT INHALATION AEROSOL 2 puffs bid wit h rinse after BUDESONIDE-FORMOTEROL FUMARATE 22529933948 N o Longer Active Perez Mora MD Active LYRICA 75 MG ORAL CAPSULE TAKE 1 CAPSULE BY MOUTH TWICE DAILY PREGABALIN 41237800114 No Longer Active Carlton Hu MD Acti ve TOPAMAX 25 MG ORAL TABLET 1 qHS x 1 week, then 1 BID x 1 week, then 1 qAM and 2 qHS x 1 week, then 2 BID (migraine prevention) T OPIRAMATE 83774960293 No Longer Active Jerica FUENTES Active TOPAMAX 50 MG ORAL TABLET take 1 tab po BID for migraines. 07/02 TOPIRAMATE 81865339653 No Longer Active Jerica FUENTES Active TOPAMAX 100 MG ORAL TABLET Take 1 tablet po bid TO PIRAMATE 64321272174 Active Carlton Hu MD Active TRIAMCINOLONE ACETONIDE 0.1 % EXTERNAL CREAM apply three roger es daily prn rash TRIAMCINOLONE ACETONIDE 91989508790 No Longer Active Carlton Hu MD Active PAXIL 40 MG ORAL TABLET take 1 tab po qday for depression 0 PAROXETINE HCL 08374211274 Active Carlton Hu MD Active CHERATUSSIN AC 100-10 MG/5ML ORAL SYRUP 5ml po q6hr PRN Cough 20 13/04/14 GUAIFENESIN-CODEINE 41453237145 No Longer Active Carlton Hu MD Active MEDROL 4 MG ORAL TABLET THERAPY PACK 6 tabs on day 1, 5 tabs on day 2, 4 tabs on day 3, 3 tabs on day 4, 2 tabs on day 5, 1 tab on day 6 2013 METHYLPREDNISOLONE 75385528742 No Longer Active Perez Mora MD Active AZITHROMYCIN 250 MG ORAL TABLET 2 po qd x 1 day, then 1 po q d x 4 days AZITHROMYCIN 36210544801 No Longer Active Perez Ambriz MD Active PROPRANOLOL HCL 60 MG ORAL TABLET 1 PO Q D PROPRANOLOL HCL 77271120449 No Longer Active Perez Mora MD Activ e CHERATUSSIN AC 100-10 MG/5ML ORAL SYRUP take one tsp po Q 6h ours prn cough GUAIFENESIN-CODEINE 69149909233 No Longer Active Zia Mora MD Active AUGMENTIN 875-125 MG ORAL TABLET 1 tab by mouth twice daily with food AMOXICILLIN-POT CLAVULANATE 89542780647 No Longer Act nael Perez Mora MD Active CHERATUSSIN AC 100-10 MG/5ML ORAL SYRUP 1 tsp by mouth every 4 hours as needed for cough GUAIFENESIN-CODEINE 81754495961 No Longe r Active Hugo Restrepo MD Active ACETAMINOPHEN-CODEINE #3 300-30 MG ORAL TABLET 1 PO Q 4-6 HRS AR N PAIN ACETAMINOPHEN-CODEINE 89051352777 No Longer Active Hugo Restrepo MD Active LEVAQUIN 500 MG ORAL TABLET take one po QD LEVO FLOXACIN 96848906954 No Longer Active Griffin HERNANDEZ Active PREDNISONE 20 MG ORAL TABLET Take 3 tabs daily for 3 d ays, 2 tabs daily for 3 days, 1 tab daily for 3 days, 1/2 tab daily for 3 days 11/07 PREDNISONE 16719355912 No Longer Active Carlton Hu MD Acti ve AVELOX 400 MG ORAL TABLET 1 tab by mouth daily MOXIFLOXACIN HCL 10079842244 No Longer Active Carlton Hu MD Active CHERATUSSIN AC 100-10 MG/5ML ORAL SYRUP 1 tsp by mouth every 4 hours as needed for cough GUAIFENESIN-CODEINE 13709422589 No Longe r Active Hugo Restrepo MD Active AVELOX 400 MG ORAL TABLET 1 tab by mouth daily MOXIFLOXACIN HCL 65499810107 No Longer Active Marcy De La Rosa MD PhD Active TERBINAFINE HCL 250 MG ORAL TABLET 1 qDay T ERBINAFINE HCL 19352271398 No Longer Active Marcy De La Rosa MD PhD Active CHERATUSSIN AC 100-10 MG/5ML ORAL SYRUP 1 tsp by mouth every 4 hours as needed for cough GUAIFENESIN-CODEINE 44279199109 No Longe r Active Marcy De La Rosa MD PhD Active AVELOX 400 MG ORAL TABLET 1 tab by mouth daily MOXIFLOXACIN HCL 31176856145 No Longer Active Marcy De La Rosa MD PhD Active HYDROCODONE-ACETAMINOPHEN 5-325 MG ORAL TABLET 1 po q 6hr PRN co ugh HYDROCODONE-ACETAMINOPHEN 91842950797 No Longer Active Marcy De La Rosa MD PhD Active PREDNISONE 20 MG ORAL TABLET 2 tabs daily for 3 days, 1 tab daily for 3 days, 1/2 tab daily for 2 days PREDNISONE 56394446567 No Longer Active Carlton Hu MD Active CEFDINIR 300 MG ORAL CAPSULE by mouth twice a day 2011 CEFDINIR 81638488502 No Longer Active Carlton Hu MD Acti ve HYDROCHLOROTHIAZIDE 25 MG ORAL TABLET 1 TAB PO DAILY HYDROCHLOROTHIAZIDE 68977538870 Active Carlton Hu MD A ctive ACETAMINOPHEN-CODEINE #3 300-30 MG ORAL TABLET 1 tablet po q 4-6 hrs prn pain ACETAMINOPHEN-CODEINE 18284250430 No Longer Active Ridge Bess DO Active ZITHROMAX 250 MG ORAL TABLET 2 po today, then 1 po q days 2-5 20 03/07/07 AZITHROMYCIN 52778272210 No Longer Active Carlton Hu MD Active CHERATUSSIN AC 100-10 MG/5ML ORAL SYRUP take 1 tsp po q4-6 h ours prn cough GUAIFENESIN-CODEINE 19225405026 No Longer Active Jayden Hu MD Active ACETAMINOPHEN-CODEINE #3 300-30 MG ORAL TABLET 1 PO Q 4-6 HR PRN PAIN ACETAMINOPHEN-CODEINE 22428685270 No Longer Active Arnol Hu MD Active LORTAB 7.5-500 MG/15ML ORAL ELIXIR 7.5 ml po q 4 hour prn cough HYDROCODONE-ACETAMINOPHEN 37689319899 No Longer Active Carlton Hu MD Active PREDNISONE 20 MG ORAL TABLET 1 po bid 3 days, then 1 po q day 3 days PREDNISONE 59710869193 No Longer Active Carlton Hu MD Active CEFDINIR 300 MG ORAL CAPSULE by mouth twice a day 2011 CEFDINIR 24017537329 No Longer Active Carlton Hu MD Acti ve CEFDINIR 300 MG ORAL CAPSULE by mouth twice a day 2010 CEFDINIR 98465935299 No Longer Active Carlton Hu MD Acti ve CEFDINIR 300 MG ORAL CAPSULE by mouth twice a day 2010 CEFDINIR 50545485619 No Longer Active Carlton Hu MD Acti ve TESSALON PERLES 100 MG ORAL CAPSULE 1 tablet by mouth 3 times daily as needed for cough BENZONATATE 02066159639 No Longer Active Carlton Hu MD Active CEFDINIR 300 MG ORAL CAPSULE by mouth twice a day 2010 CEFDINIR 94926875772 No Longer Active Carlton Hu MD Acti ve ZITHROMAX Z-REYNA 250 MG ORAL TABLET 2 today, then 1 daily for 4 d ays AZITHROMYCIN 23848653971 No Longer Active Hugo Restrepo MD Active TESSALON PERLES 100 MG ORAL CAPSULE 1 tablet by mouth 3 times daily as needed for cough TESSALON PERLES 100 MG ORAL CAPSULE 83814 7 BENZONATATE Inactive PREDNISONE 20 MG ORAL TABLET 1 po bid 3 days, then 1 po q day 3 days PREDNISONE 20 MG ORAL TABLET 154787 PREDNISONE [place] ctive LORTAB 7.5-500 MG/15ML ORAL ELIXIR 7.5 [...] cough CHERATUSSIN AC 100-10 MG/5ML ORAL SYRUP 969796 GUAIFENESIN-CODEINE Inactive ACETAMINOPHEN-CODEINE #3 300-30 MG ORAL TABLET 1 tablet po q 4-6 hrs prn pain ACETAMINOPHEN-CODEINE #3 300-30 MG ORAL TABLET ACETAMINOPHEN-CODEINE Inactive HYDROCODONE-ACETAMINOPHEN 5-325 MG ORAL TABLET 1 po q 6hr PRN co ugh HYDROCODONE-ACETAMINOPHEN 5-325 MG ORAL TABLET 207947 HYDROCODONE-ACETAMINOPHEN Inactive AVELOX 400 MG ORAL TABLET 1 tab by mouth daily AVELOX 400 MG ORAL TABLET 412809 MOXIFLOXACIN HCL Inactive CHERATUSSIN AC 100-10 MG/5ML ORAL SYRUP 1 tsp by mouth every 4 hours as needed for cough CHERATUSSIN AC 100-10 MG/5ML ORAL SYRUP 9 21682 GUAIFENESIN-CODEINE Inactive TERBINAFINE HCL 250 MG ORAL TABLET 1 qDay 07/08 TERBINAFINE HCL 250 MG ORAL TABLET 003172 TERBINAFINE HCL Inactive CHERATUSSIN AC 100-10 MG/5ML ORAL SYRUP 1 tsp by mouth every 4 hours as needed for cough CHERATUSSIN AC 100-10 MG/5ML ORAL SYRUP 9 95542 GUAIFENESIN-CODEINE Inactive ACETAMINOPHEN-CODEINE #3 300-30 MG ORAL TABLET 1 PO Q 4-6 HRS AR N PAIN ACETAMINOPHEN-CODEINE #3 300-30 MG ORAL TABLET ACETAMINOPHEN-CODEINE Inactive CHERATUSSIN AC 100-10 MG/5ML ORAL SYRUP 1 tsp by mouth every 4 hours as needed for cough CHERATUSSIN AC 100-10 MG/5ML ORAL SYRUP 9 99416 GUAIFENESIN-CODEINE Inactive AUGMENTIN 875-125 MG ORAL TABLET 1 tab by mouth twice daily with food AUGMENTIN 875-125 MG ORAL TABLET 808082 AMOXICIL MADELINE-POT CLAVULANATE Inactive CHERATUSSIN AC 100-10 MG/5ML ORAL SYRUP take one tsp po Q 6h ours prn cough CHERATUSSIN AC 100-10 MG/5ML ORAL SYRUP 512334 GUAIFENESIN-CODEINE Inactive PROPRANOLOL HCL 60 MG ORAL TABLET 1 PO Q D PROPRANOLOL HCL 60 MG ORAL TABLET 404136 PROPRANOLOL HCL Inactive TOPAMAX 50 MG ORAL TABLET take 1 tab po BID for migraines. 07/02 TOPAMAX 50 MG ORAL TABLET 902155 TOPIRAMATE Inacti ve TOPAMAX 25 MG ORAL TABLET 1 qHS x 1 week, then 1 BID x 1 week, then 1 qAM and 2 qHS x 1 week, then 2 BID (migraine prevention) TOPAMAX 25 MG ORAL TABLET 540192 TOPIRAMATE Inactive LYRICA 75 MG ORAL CAPSULE TAKE 1 CAPSULE BY MOUTH TWICE DAILY LYRICA 75 MG ORAL CAPSULE PREGABALIN Inactive SYMBICORT 160-4.5 MCG/ACT INHALATION AEROSOL 2 puffs bid wit h rinse after SYMBICORT 160-4.5 MCG/ACT INHALATION AEROSOL BUDESONIDE- FORMOTEROL FUMARATE Inactive PROMETHAZINE-CODEINE 6.25-10 MG/5ML ORAL SYRUP 1 tsp b y mouth every 8 hours prn cough PROMETHAZINE-CODEINE 6.25-10 MG/ 5ML ORAL SYRUP 599692 PROMETHAZINE-CODEINE Inactive CYMBALTA 30 MG ORAL CAPSULE DELAYED RELEASE PARTICLES 1 cap by mouth daily CYMBALTA 30 MG ORAL CAPSULE DELAYED RELE ASE PARTICLES 643099 DULOXETINE HCL Inactive PREMARIN 0.625 MG ORAL TABLET TAKE 1 TAB BY MOUTH DAILY PREMARIN 0.625 MG ORAL TABLET ESTROGENS CONJUGATED Inactive CHERATUSSIN AC 100-10 MG/5ML ORAL SYRUP 1 tsp by mouth every 4 hours as needed for cough CHERATUSSIN AC 100-10 MG/5ML ORAL SYRUP 9 46919 GUAIFENESIN-CODEINE Inactive PROMETHAZINE-CODEINE 6.25-10 MG/5ML ORAL SYRUP 1 tsp b y mouth every 6 hours if needed for cough PROMETHAZINE-CODEINE 6.25-10 MG/5ML ORAL SYRUP 058464 PROMETHAZINE-CODEINE Inactive CHERATUSSIN AC 100-10 MG/5ML ORAL SYRUP 1 tsp by mouth every 4 hours as needed for cough CHERATUSSIN AC 100-10 MG/5ML ORAL SYRUP 9 07742 GUAIFENESIN-CODEINE Inactive FLUTICASONE PROPIONATE 50 MCG/ACT NASAL SUSPENSION 1 t o 2 sprays each nostril daily FLUTICASONE PROPIONATE 50 MCG/AC T NASAL SUSPENSION 6349981 FLUTICASONE PROPIONATE Inactive PREDNISONE 20 MG ORAL TABLET 3 tab PO qd x 2d, 2 tab P O qd x 2d, 1 tab PO qd x 2d, 1/2 tab PO qd x 2d PREDNISONE 20 MG ORAL TAB LET 928033 PREDNISONE Inactive LEVOFLOXACIN 500 MG ORAL TABLET 1 tab PO daily x 10 days LEVOFLOXACIN 500 MG ORAL TABLET 620848 LEVOFLOXACIN Inactive CYCLOBENZAPRINE HCL 10 MG ORAL TABLET 1 tablet by mouth BID prn had pain CYCLOBENZAPRINE HCL 10 MG ORAL TABLET 760489 CYCLOBENZAPRINE HCL Inactive ZOCOR 40 MG ORAL TABLET 1 tab by mouth daily 4 ZOCOR 40 MG ORAL TABLET 872727 SIMVASTATIN Inactive TUSSIONEX PENNKINETIC ER 10-8 MG/5ML [...] FLUTICASONE PROPIO EFE 50 MCG/ACT NASAL SUSPENSION 7557601 FLUTICASONE PROPIONATE Inactive TUSSIONEX PENNKINETIC ER 10-8 [...] three days PREDNISONE 20 MG ORAL TABLET 915148 PREDNIS ONE Inactive ZITHROMAX Z-REYNA 250 MG ORAL TABLET 2 today, then 1 daily for 4 d ays ZITHROMAX Z-REYNA 250 MG ORAL TABLET 018632 AZITHROMYCIN Inactive CEFDINIR 300 MG ORAL CAPSULE [...] 20 03/07/07 ZITHROMAX 250 MG ORAL TABLET 429373 AZITHROMYCIN [place] ctive CEFDINIR 300 MG ORAL CAPSULE by mouth twice a day 2011 CEFDINIR 300 MG ORAL CAPSULE 870548 CEFDINIR Inactive PREDNISONE 20 MG ORAL TABLET 2 tabs daily for 3 days, 1 tab daily for 3 days, 1/2 tab daily for 2 days PREDNISONE 20 MG ORAL T ABLET 349412 PREDNISONE Inactive AVELOX 400 MG ORAL TABLET 1 tab by mouth daily AVELOX 400 MG ORAL TABLET 475643 MOXIFLOXACIN HCL Inactive AVELOX 400 MG ORAL TABLET 1 tab by mouth daily AVELOX 400 MG ORAL TABLET 602041 MOXIFLOXACIN HCL Inactive PREDNISONE 20 MG ORAL TABLET Take 3 tabs daily for 3 d ays, 2 tabs daily for 3 days, 1 tab daily for 3 days, 1/2 tab daily for 3 days 11/07 PREDNISONE 20 MG ORAL TABLET 237486 PREDNISONE Inactive LEVAQUIN 500 MG ORAL TABLET take one po QD LEVAQUIN 500 MG ORAL TABLET 343337 LEVOFLOXACIN Inactive AZITHROMYCIN 250 MG ORAL TABLET 2 po qd x 1 day, then 1 po q d x 4 days AZITHROMYCIN 250 MG ORAL TABLET 883260 AZITHROMY GIOVANNI Inactive MEDROL 4 MG ORAL TABLET THERAPY PACK 6 tabs on day 1, 5 tabs on day 2, 4 tabs on day 3, 3 tabs on day 4, 2 tabs on day 5, 1 tab on day 6 2013 MEDROL 4 MG ORAL TABLET THERAPY PACK 601677 METHYLPREDNISOLONE [place] ctive CHERATUSSIN AC 100-10 MG/5ML ORAL SYRUP 5ml po q6hr PRN Cough 20 13/04/14 CHERATUSSIN AC 100-10 MG/5ML ORAL SYRUP 024041 GUAIFENE SIN-CODEINE Inactive TRIAMCINOLONE ACETONIDE 0.1 % EXTERNAL CREAM apply three roger es daily prn rash TRIAMCINOLONE ACETONIDE 0.1 % EXTERNAL CREAM 101 4314 TRIAMCINOLONE ACETONIDE Inactive AZITHROMYCIN 250 MG ORAL TABLET 2 po qd x 1 day, then 1 po q d x 4 days AZITHROMYCIN 250 MG ORAL TABLET 985422 AZITHROMY GIOVANNI Inactive MEDROL 4 MG ORAL TABLET THERAPY PACK 6 pills x 1 day, then 5 pills x 1 day then 4 pills x 1 day, then 3 pills x 1 day, then 2 pills x 1 day, then 1 pill x 1 day, then stop MEDROL 4 MG ORAL TABLET THERAPY PACK 946284 METHYLPREDNISOLONE Inactive AMOXICILLIN 500 MG ORAL CAPSULE 1 tab by mouth 3 times daily x 10 days AMOXICILLIN 500 MG ORAL CAPSULE 578889 AMOXICILL IN Inactive AMOXICILLIN 500 MG ORAL CAPSULE 1 tab by mouth 3 times daily x 10 days AMOXICILLIN 500 MG ORAL CAPSULE 366041 AMOXICILL IN Inactive ZITHROMAX 250 MG ORAL TABLET 2 po today, then 1 po q days 2-5 20 12/08/14 ZITHROMAX 250 MG ORAL TABLET 264614 AZITHROMYCIN [place] ctive AUGMENTIN 875-125 MG ORAL TABLET 1 po BID x 10 days 20 13/01/20 AUGMENTIN 875-125 MG ORAL TABLET 873796 AMOXICILLIN-POT CLAVULANATE Inactive ZITHROMAX Z-REYNA 250 MG ORAL TABLET 2 today, then 1 daily for 4 d ays ZITHROMAX Z-REYNA 250 MG ORAL TABLET 449862 AZITHROMYCIN Inactive ZITHROMAX 250 MG ORAL TABLET 2 po today, then 1 po q days 2-5 20 14/03/21 ZITHROMAX 250 MG ORAL TABLET 128367 AZITHROMYCIN [place] ctive ZITHROMAX Z-REYNA 250 MG ORAL TABLET 2 today, then 1 daily for 4 d ays ZITHROMAX Z-REYNA 250 MG ORAL TABLET 845211 AZITHROMYCIN Inactive CEFDINIR 300 MG ORAL CAPSULE 1 po BID x 10 days 06/21 CEFDINIR 300 MG ORAL CAPSULE 742456 CEFDINIR Inactive ZITHROMAX 250 MG ORAL TABLET 2 po today, then 1 po q days 2-5 20 13/08/10 ZITHROMAX 250 MG ORAL TABLET 412542 AZITHROMYCIN [place] ctive LEVAQUIN 500 MG ORAL TABLET 1 tablet by mouth daily 13/09/24 LEVAQUIN 500 MG ORAL TABLET 500574 LEVOFLOXACIN Inactive SINGULAIR 10 MG ORAL TABLET 1 po qday for allergies 20 14/01/12 SINGULAIR 10 MG ORAL TABLET 814645 MONTELUKAST SODIUM Inactive AMOXICILLIN 500 MG ORAL CAPSULE 2 po BID x 10 days 201 09/29/08 AMOXICILLIN 500 MG ORAL CAPSULE 392201 AMOXICILLIN Inactive PREDNISONE 20 MG ORAL TABLET 2 tabs daily for 3 days, 1 tab daily for 3 days, 1/2 tab daily for 2 days PREDNISONE 20 MG ORAL T ABLET 345010 PREDNISONE Inactive ZITHROMAX Z-REYNA 250 MG ORAL TABLET 2 today, then 1 daily for 4 d ays ZITHROMAX Z-REYNA 250 MG ORAL TABLET 363278 AZITHROMYCIN Inactive PREDNISONE 20 MG ORAL TABLET 2 tabs daily for 3 days, 1 tab daily for 3 days, 1/2 tab daily for 2 days PREDNISONE 20 MG ORAL T ABLET 959838 PREDNISONE Inactive ZITHROMAX 250 MG ORAL TABLET 2 po today, then 1 po q days 2-5 20 14/09/04 ZITHROMAX 250 MG ORAL TABLET 190354 AZITHROMYCIN [place] ctive AMOXICILLIN 500 MG ORAL CAPSULE 1 cap by mouth three times a day AMOXICILLIN 500 MG ORAL CAPSULE 714608 AMOXICILLIN Inactive TERBINAFINE HCL 250 MG ORAL TABLET 1 qDay for nail fungus 7 TERBINAFINE HCL 250 MG ORAL TABLET 494943 TERBINAFINE HCL Inact nael AUGMENTIN 875-125 MG ORAL TABLET 1 po BID x 10 days 16/03/22 AUGMENTIN 875-125 MG ORAL TABLET 982026 AMOXICILLIN-POT CLAVULANATE Inactive Vital Signs Date Name [...] - Chem istry sodium, serum 132 mmol/L 454-440 5574/07/12 potassium, serum 2.7 mmol/L 3.5-5.2 chloride, serum 93 mmol/L 98-107 carbon dioxide, venous blood 30.8 mmol/L 21.0-32 .0 blood glucose 107 mg/dL 65-110 calcium, serum 9.3 mg/dL 8.5-10.1 urea nitrogen, blood 12 mg/dL 7-18 creatinine, serum 1.00 mg/dL 0.60-1.30 sodium, serum 142 mmol/L 532-605 6197/07/17 potassium, serum 4.2 mmol/L 3.5-5.2 chloride, serum 106 mmol/L 98-107 carbon dioxide, venous blood 29.9 mmol/L 21.0-32 .0 blood glucose 108 mg/dL 65-110 calcium, serum 9.1 mg/dL 8.5-10.1 urea nitrogen, blood 11 mg/dL 7-18 creatinine, serum 0.81 mg/dL 0.60-1.30 Lab Report: Rapid Strep - Lab Microbial identification kit, rapid strep method Negative Negative Encounters Code Encounter Date Provider Facility [id number] Level 4 Est. Patient 09:51:32 [employer] Carlton rich MD [facility]-[id number] Level 3 Est. 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 Patient 13:35:41 [employer] Carlton rich MD [facility]-90175 Level 3 Est. Patient 10:03:52 [employer] Carlton rich MD [facility]-76412 Level 3 Est. Patient 12:17:50 CDT Hugo Restrepo MD [facility]-91006 Level 3 Est. Patient 13:42:38 CDT Italo [facility]-93579 Level 3 Est. Patient 13:23:51 CDT Diya cobian [facility]-52919 Level 3 Est. Patient 14:22:19 [employer] Diya cobian [facility]-53861 Level 3 Est. Patient 10:11:46 CDT Carlton rich MD [facility]-31571 Level 3 Est. Patient 17:29:43 CDT Italo [facility]-18635 Level 3 Est. Patient 11:58:06 CDT Italo [facility]-57084 Level 4 Est. Patient 14:36:51 CDT Carlton rich MD [facility]-67903 Level 3 Est. Patient 18:16:00 [employer] Blaine Freeman [facility] CPT-06370 Level 3 Est. Patient 09:45:49 [employer] Carlton rich MD [facility]-98310 Level 3 Est. Patient 13:19:20 CDT Carlton rich MD [facility]-35710 Level 3 Est. Patient 13:06:43 CDT Ridge tam DO [facility]-57436 Level 3 Est. Patient 10:03:07 CDT Perez Mora MD [facility]-41650 Level 3 Est. Patient 19:50:35 [employer] Carlton rich MD [facility]-73773 Level 4 Est. Patient 18:05:01 [employer] Carlton rich MD [facility]-10896 Level 3 Est. Patient 10:45:55 [employer] Hugo Restrepo MD [facility]-98101 Level 3 Est. Patient 14:12:49 CDT Griffin [facility]-28215 Level 3 Est. Patient 17:37:24 CDT Carlton rich MD [facility]-44131 Level 3 Est. Patient 16:51:54 CDT Carlton rich MD [facility]-93430 Level 3 Est. Patient 12:18:11 CDT Hugo Restrepo MD [facility]-90921 Level 3 Est. Patient 11:30:25 CDT Marcy crisostomo MD PhD [facility]-29450 Level 3 Est. Patient 12:00:47 [employer] Carlton rich MD [facility]-41348 Level 3 Est. Patient 16:31:06 [employer] Carlton rich MD [facility]-04171 Level 3 Est. Patient 16:23:24 [employer] Ridge tam [facility] CPT-49755 Level 3 Est. Patient 12:34:12 CDT Carlton rich MD [facility] CPT-79729 Level 2 Est. Patient 15:43:33 CDT Robi armstrong MD [facility] CPT-49329 Level 4 Est. Patient 14:04:44 CDT Carlton rich MD [facility] CPT-66486 Level 3 Est. Patient 05:47:59 CDT Ridge tam [facility] CPT-62123 Level 3 Est. Patient 13:12:53 [employer] Carlton rich MD [facility] CPT-78725 Level 3 Est. Patient 14:26:53 CDT Hugo Restrepo MD [facility] Procedures Code Procedure Name Date Entry Date Standard Desc ription CPT-J1040 Depo Medrol 80 mg (Methyl Prednisolone A cetate) 10:42:44 CDT CPT-J1100 Decadron 8mg (Dexamethasone) 10:42:44 CDT 2 CPT-J0696 Rocephin 1gm Inj Solr 14:32:13 CDT CPT-J1020 Depo Medrol 60 mg (Methyl Prednisolone A cetate) 14:32:13 CDT CPT-J1100 Decadron 6mg (Dexamethasone) 14:32:13 CDT 2 CPT-58511 Hip bilat min 2V w AP pelvis 13:16:20 CDT 2 CPT-28701 Pelvis only 13:07:33 CDT CPT-07774 Spec Collection and Handling Fee 11:25:12 C DT CPT-86598 Fluzone Quadrivalent Intramuscular Suspe nsion 0.5 ML 14:31:55 CDT CPT-21505 Abx/Therapy Injection 13:28:47 [employer] CPT-J2930 Solu Medrol 125 mg (Methyl Prednisolone Sodium Succinate) 12:00:47 [employer] CPT-02670 Venipuncture Draw Fee 11:33:31 CDT CPT-49455 EKG Trac and Interp 11:21:09 CDT CPT-31599 Chest 2V Frontal and Lat 11:21:09 CDT 12/15 CPT-91004 Venipuncture Draw Fee 08:02:34 CDT CPT-66708 Chest 2V Frontal and Lat 05:47:59 CDT 06/05
--- OUTSIDE RECORDS SUMMARY | 2019-10-08 08:24 | XMS REPORT | Clinical Summary ---
Author Author Caitlin, Juliana Martinez Organization [facility] Address Unknown Phone Unavailable Allergies, Adverse [...] qDay for nail fungus 7 TERBINAFINE HCL [id number] No Longer Active Carlton Hu MD A ctive TUSSIONEX PENNKINETIC ER 10-8 MG/5ML ORAL SUSPENSION E XTENDED RELEASE 5ml po q12hr PRN Cough HYDROCOD POLST-CHLORPHEN POLST 12891218964 Active Carlton Hu MD Active PREDNISONE 20 MG ORAL TABLET 1 tab twice daily for 3 d ay, then one daily for three days PREDNISONE 88770731768 Active Carlton Hu MD Active AMOXICILLIN 500 MG ORAL CAPSULE 1 cap by mouth three times a day AMOXICILLIN 98246396640 No Longer Active Carlton Hu MD Active ELMIRON 100 MG ORAL CAPSULE 2 tablets in the am and 1 tablet at hs PENTOSAN POLYSULFATE SODIUM 60577221896 No Longer Active Robert jade Hu MD Active MUCINEX D 60-600 MG ORAL TABLET EXTENDED RELEASE 12 HOUR 1 t ab po q am PSEUDOEPHEDRINE-GUAIFENESIN 50032352794 No Longer Act nael Carlton Hu MD Active MUCINEX DM MAXIMUM STRENGTH 60-1200 MG ORAL TABLET EXT ENDED RELEASE 12 HOUR 1 tab po q am DEXTROMETHORPHAN-GUAIFENESIN 41132629010 No Longer Active Carlton Hu MD Active TUSSIONEX PENNKINETIC ER 10-8 MG/5ML ORAL SUSPENSION E XTENDED RELEASE 5ml po q12hr PRN Cough HYDROCOD POLST-CHLORPHEN POLST 5 0291312419 No Longer Active Carlton Hu MD Active POTASSIUM CHLORIDE ER 20 MEQ ORAL TABLET EXTENDED RELE ASE Take 1 by mouth 4 times daily for 7 days POTASSIUM CHLORIDE 37769938071 No Longer Active Carlton Hu MD Active ZITHROMAX 250 MG ORAL TABLET 2 po today, then 1 po q days 2-5 20 14/09/04 AZITHROMYCIN 40345457989 No Longer Active Elise Whitmore APRN Active TUSSIONEX PENNKINETIC ER 10-8 MG/5ML ORAL SUSPENSION E XTENDED RELEASE 5 ml twice a day as needed for cough HYDROCOD POLST-CHLORPH EN POLST 56741278815 No Longer Active Elise Whitmore APRN Active MONTELUKAST SODIUM 10 MG ORAL TABLET 1 po daily for Allergy MONTELUKAST SODIUM 59425960868 Active Carlton Hu MD Ac tive TUSSIONEX PENNKINETIC ER 10-8 MG/5ML ORAL SUSPENSION E XTENDED RELEASE 5ml po q12hr PRN Cough HYDROCOD POLST-CHLORPHEN POLST 5 1358090995 No Longer Active Hugo Restrepo MD Active GABAPENTIN 100 MG ORAL CAPSULE 1 po BID for fibromyalgia GABAPENTIN 72449657508 Active Elise Whitmore APRN Active LYRICA 100 MG ORAL CAPSULE Take 1 tab po BID for fibromyalgia 20 11/08/21 PREGABALIN 54510807735 No Longer Active Elise Whitmore APRN Active PROAIR HFA 108 (90 Base) MCG/ACT INHALATION AEROSOL SO LUTION 2 puffs four times a day as needed ALBUTEROL SULFATE 35581453194 Active Lyndsay Whitmore APRN Active PREDNISONE 20 MG ORAL TABLET 2 tabs daily for 3 days, 1 tab daily for 3 days, 1/2 tab daily for 2 days PREDNISONE 91279683954 No Longer Active Jillina Frazelbhakti KHAN Active TUSSIONEX PENNKINETIC ER 10-8 MG/5ML ORAL SUSPENSION E XTENDED RELEASE 5 mL PO q 12 hrs PRN cough HYDROCOD POLST-CHLORPHEN POLST 363599 04970 No Longer Active Jillina Frazell BILL Active FLUTICASONE PROPIONATE 50 MCG/ACT NASAL SUSPENSION 2 s prays each nostril daily until bottle is empty FLUTICASONE PROPIONATE 006429364 99 No Longer Active Jillina Frazell CLINICAL LABORATORY TECHNICIAN Active ASMANEX 60 METERED DOSES 220 MCG/INH INHALATION AEROSO L POWDER BREATH ACTIVATED 1 puff bid with rinse after MOMETASONE FUROATE 0589908 4102 No Longer Active Jillina Frazell CLINICAL LABORATORY TECHNICIAN Active ZITHROMAX Z-REYNA 250 MG ORAL TABLET 2 today, then 1 daily for 4 d ays AZITHROMYCIN 93735617971 No Longer Active Elise Whitmore APRN Active TUSSIONEX PENNKINETIC ER 10-8 MG/5ML ORAL SUSPENSION E XTENDED RELEASE 5ml po q12hr PRN Cough HYDROCOD POLST-CHLORPHEN POLST 5 1594386704 No Longer Active Elise Whitmore APRN Active PREDNISONE 20 MG ORAL TABLET 2 tabs daily for 3 days, 1 tab daily for 3 days, 1/2 tab daily for 2 days PREDNISONE 66409380268 No Longer Active Diya De Guzman APRN Active AMOXICILLIN 500 MG ORAL CAPSULE 2 po BID x 10 days 201 09/29/08 AMOXICILLIN 12437257826 No Longer Active Diya De Guzman APRN Act nael SINGULAIR 10 MG ORAL TABLET 1 po qday for allergies 20 14/01/12 MONTELUKAST SODIUM 72837650565 No Longer Active Carlton Hu MD Active LEVAQUIN 500 MG ORAL TABLET 1 tablet by mouth daily 13/09/24 LEVOFLOXACIN 78772427231 No Longer Active Carlton Hu MD Acti ve FLUTICASONE PROPIONATE 50 MCG/ACT NASAL SUSPENSION 2 s prays each nostril daily for 2 weeks, then 1 spray each nostril daily. FLUTICASONE PROPIONATE 13505978635 Active Elise Whitmore APRN Active ZITHROMAX 250 MG ORAL TABLET 2 po today, then 1 po q days 2-5 20 13/08/10 AZITHROMYCIN 95244897968 No Longer Active Elise Whitmore APRN Active XANAX 0.5 MG ORAL TABLET one tablet by mouth daily prn anxiety 2015 ALPRAZOLAM 45352913433 Active Carlton Hu MD Active CYMBALTA 30 MG ORAL CAPSULE DELAYED RELEASE PARTICLES 1 cap by mouth daily for depression DULOXETINE HCL 19959722835 Active Carlton beltrán MD Active CEFDINIR 300 MG ORAL CAPSULE 1 po BID x 10 days CEFDINIR 69765542050 No Longer Active Carlton Hu MD Active ZOCOR 40 MG ORAL TABLET 1 tab by mouth daily SI MVASTATIN 35860275367 No Longer Active Carlton Hu MD Active CYCLOBENZAPRINE HCL 10 MG ORAL TABLET 1 tablet by mouth BID prn had pain CYCLOBENZAPRINE HCL 79586689256 No Longer Active Jayden Hu MD Active LEVOFLOXACIN 500 MG ORAL TABLET 1 tab PO daily x 10 days LEVOFLOXACIN 13162867181 No Longer Active Carlton Hu MD Acti ve PREDNISONE 20 MG ORAL TABLET 3 tab PO qd x 2d, 2 tab P O qd x 2d, 1 tab PO qd x 2d, 1/2 tab PO qd x 2d PREDNISONE 21401162353 No Lo nger Active Carlton Hu MD Active FLUTICASONE PROPIONATE 50 MCG/ACT NASAL SUSPENSION 1 t o 2 sprays each nostril daily FLUTICASONE PROPIONATE 87010198426 No Longer Ac tive Blaine HERNANDEZ Active CHERATUSSIN AC 100-10 MG/5ML ORAL SYRUP 1 tsp by mouth every 4 hours as needed for cough GUAIFENESIN-CODEINE 30295956634 No Longe r Active Blaine HERNANDEZ Active PROMETHAZINE-CODEINE 6.25-10 MG/5ML ORAL SYRUP 1 tsp b y mouth every 6 hours if needed for cough PROMETHAZINE-CODEINE 65532853415 No Longer Active Blaine HERNANDEZ Active CHERATUSSIN AC 100-10 MG/5ML ORAL SYRUP 1 tsp by mouth every 4 hours as needed for cough GUAIFENESIN-CODEINE 76081259498 No Longe r Active Blaine HERNANDEZ Active ZITHROMAX Z-ERYNA 250 MG ORAL TABLET 2 today, then 1 daily for 4 d ays AZITHROMYCIN 00204091824 No Longer Active Cloumba Raida Act nael ZITHROMAX 250 MG ORAL TABLET 2 po today, then 1 po q days 2-5 20 14/03/21 AZITHROMYCIN 46883738442 No Longer Active Carlton Hu MD Active ZITHROMAX Z-REYNA 250 MG ORAL TABLET 2 today, then 1 daily for 4 d ays AZITHROMYCIN 85665077044 No Longer Active Columba Raida Act nael AUGMENTIN 875-125 MG ORAL TABLET 1 po BID x 10 days 13/01/20 AMOXICILLIN-POT CLAVULANATE 08182026696 No Longer Active Diya Daphnebrayan KHAN Active ZITHROMAX 250 MG ORAL TABLET 2 po today, then 1 po q days 2-5 20 12/08/14 AZITHROMYCIN 44752365015 No Longer Active Carlton Hu MD Active TRAMADOL HCL 50 MG ORAL TABLET 1 po tid with ES Tylenol TRAMADOL HCL 25104027096 Active Carlton Hu MD Active PREMARIN 0.625 MG ORAL TABLET TAKE 1 TAB BY MOUTH DAILY ESTROGENS CONJUGATED 35993940072 No Longer Active Ridge Bess DO A ctive CYMBALTA 30 MG ORAL CAPSULE DELAYED RELEASE PARTICLES 1 cap by mouth daily DULOXETINE HCL 67266315202 No Longer Active Ridge tam DO Active AMOXICILLIN 500 MG ORAL CAPSULE 1 tab by mouth 3 times daily x 10 days AMOXICILLIN 73679790043 No Longer Active Carlton bustamante MD Active AMOXICILLIN 500 MG ORAL CAPSULE 1 tab by mouth 3 times daily x 10 days AMOXICILLIN 00895259599 No Longer Active Carlton bustamante MD Active PROMETHAZINE-CODEINE 6.25-10 MG/5ML ORAL SYRUP 1 tsp b y mouth every 8 hours prn cough PROMETHAZINE-CODEINE 36730877158 No Longer Acti ve Carlton Hu MD Active MEDROL 4 MG ORAL TABLET THERAPY PACK 6 pills x 1 day, then 5 pills x 1 day then 4 pills x 1 day, then 3 pills x 1 day, then 2 pills x 1 day, then 1 pill x 1 day, then stop METHYLPREDNISOLONE 74851339179 No Long er Active Perez Mora MD Active AZITHROMYCIN 250 MG ORAL TABLET 2 po qd x 1 day, then 1 po q d x 4 days AZITHROMYCIN 46920473016 No Longer Active Perez Ambriz MD Active SYMBICORT 160-4.5 MCG/ACT INHALATION AEROSOL 2 puffs bid wit h rinse after BUDESONIDE-FORMOTEROL FUMARATE 40713583552 N o Longer Active Perez Mora MD Active LYRICA 75 MG ORAL CAPSULE TAKE 1 CAPSULE BY MOUTH TWICE DAILY PREGABALIN 11407852575 No Longer Active Carlton Hu MD Acti ve TOPAMAX 25 MG ORAL TABLET 1 qHS x 1 week, then 1 BID x 1 week, then 1 qAM and 2 qHS x 1 week, then 2 BID (migraine prevention) T OPIRAMATE 02502197424 No Longer Active Jerica FUENTES Active TOPAMAX 50 MG ORAL TABLET take 1 tab po BID for migraines. 07/02 TOPIRAMATE 71383333970 No Longer Active Jerica FUENTES Active TOPAMAX 100 MG ORAL TABLET Take 1 tablet po bid TO PIRAMATE 92530026093 Active Carlton Hu MD Active TRIAMCINOLONE ACETONIDE 0.1 % EXTERNAL CREAM apply three roger es daily prn rash TRIAMCINOLONE ACETONIDE 45893393348 No Longer Active Carlton Hu MD Active PAXIL 40 MG ORAL TABLET take 1 tab po qday for depression 0 PAROXETINE HCL 38678780025 Active Carlton Hu MD Active CHERATUSSIN AC 100-10 MG/5ML ORAL SYRUP 5ml po q6hr PRN Cough 20 13/04/14 GUAIFENESIN-CODEINE 86706011423 No Longer Active Carlton Hu MD Active MEDROL 4 MG ORAL TABLET THERAPY PACK 6 tabs on day 1, 5 tabs on day 2, 4 tabs on day 3, 3 tabs on day 4, 2 tabs on day 5, 1 tab on day 6 2013 METHYLPREDNISOLONE 63995660465 No Longer Active Perez Mora MD Active AZITHROMYCIN 250 MG ORAL TABLET 2 po qd x 1 day, then 1 po q d x 4 days AZITHROMYCIN 88208199232 No Longer Active Perez Ambriz MD Active PROPRANOLOL HCL 60 MG ORAL TABLET 1 PO Q D PROPRANOLOL HCL 64165084922 No Longer Active Perez Mora MD Activ e CHERATUSSIN AC 100-10 MG/5ML ORAL SYRUP take one tsp po Q 6h ours prn cough GUAIFENESIN-CODEINE 22839732052 No Longer Active Zia Mora MD Active AUGMENTIN 875-125 MG ORAL TABLET 1 tab by mouth twice daily with food AMOXICILLIN-POT CLAVULANATE 76940354835 No Longer Act nael Mora MD Active CHERATUSSIN AC 100-10 MG/5ML ORAL SYRUP 1 tsp by mouth every 4 hours as needed for cough GUAIFENESIN-CODEINE 86727765383 No Longe r Active Hugo Restrepo MD Active ACETAMINOPHEN-CODEINE #3 300-30 MG ORAL TABLET 1 PO Q 4-6 HRS RI N PAIN ACETAMINOPHEN-CODEINE 33299530839 No Longer Active Hugo Restrepo MD Active LEVAQUIN 500 MG ORAL TABLET take one po QD LEVO FLOXACIN 45176323785 No Longer Active Griffin HERNANDEZ Active PREDNISONE 20 MG ORAL TABLET Take 3 tabs daily for 3 d ays, 2 tabs daily for 3 days, 1 tab daily for 3 days, 1/2 tab daily for 3 days 11/07 PREDNISONE 38185062560 No Longer Active Carlton Hu MD Acti ve AVELOX 400 MG ORAL TABLET 1 tab by mouth daily MOXIFLOXACIN HCL 89524767694 No Longer Active Carlton Hu MD Active CHERATUSSIN AC 100-10 MG/5ML ORAL SYRUP 1 tsp by mouth every 4 hours as needed for cough GUAIFENESIN-CODEINE 01630585703 No Longe r Active Hugo Restrepo MD Active AVELOX 400 MG ORAL TABLET 1 tab by mouth daily MOXIFLOXACIN HCL 41360203853 No Longer Active Marcy De La Rosa MD PhD Active TERBINAFINE HCL 250 MG ORAL TABLET 1 qDay T ERBINAFINE HCL 87511810755 No Longer Active Marcy De La Rosa MD PhD Active CHERATUSSIN AC 100-10 MG/5ML ORAL SYRUP 1 tsp by mouth every 4 hours as needed for cough GUAIFENESIN-CODEINE 43009586154 No Longe r Active Marcy De La Rosa MD PhD Active AVELOX 400 MG ORAL TABLET 1 tab by mouth daily MOXIFLOXACIN HCL 00571933460 No Longer Active Marcy De La Rosa MD PhD Active HYDROCODONE-ACETAMINOPHEN 5-325 MG ORAL TABLET 1 po q 6hr PRN co ugh HYDROCODONE-ACETAMINOPHEN 66755471715 No Longer Active Marcy De La Rosa MD PhD Active PREDNISONE 20 MG ORAL TABLET 2 tabs daily for 3 days, 1 tab daily for 3 days, 1/2 tab daily for 2 days PREDNISONE 18732472634 No Longer Active Carlton Hu MD Active CEFDINIR 300 MG ORAL CAPSULE by mouth twice a day 2011 CEFDINIR 18169690202 No Longer Active Carlton Hu MD Acti ve HYDROCHLOROTHIAZIDE 25 MG ORAL TABLET 1 TAB PO DAILY HYDROCHLOROTHIAZIDE 17222840509 Active Carlton Hu MD A ctive ACETAMINOPHEN-CODEINE #3 300-30 MG ORAL TABLET 1 tablet po q 4-6 hrs prn pain ACETAMINOPHEN-CODEINE 28614320531 No Longer Active Ridge Bess DO Active ZITHROMAX 250 MG ORAL TABLET 2 po today, then 1 po q days 2-5 20 03/07/07 AZITHROMYCIN 30262260535 No Longer Active Carlton Hu MD Active CHERATUSSIN AC 100-10 MG/5ML ORAL SYRUP take 1 tsp po q4-6 h ours prn cough GUAIFENESIN-CODEINE 54556753737 No Longer Active Jayden Hu MD Active ACETAMINOPHEN-CODEINE #3 300-30 MG ORAL TABLET 1 PO Q 4-6 HR PRN PAIN ACETAMINOPHEN-CODEINE 11566867108 No Longer Active Arnol Hu MD Active LORTAB 7.5-500 MG/15ML ORAL ELIXIR 7.5 ml po q 4 hour prn cough HYDROCODONE-ACETAMINOPHEN 42776666369 No Longer Active Carlton Hu MD Active PREDNISONE 20 MG ORAL TABLET 1 po bid 3 days, then 1 po q day 3 days PREDNISONE 88799661072 No Longer Active Carlton Hu MD Active CEFDINIR 300 MG ORAL CAPSULE by mouth twice a day 2011 CEFDINIR 33816852291 No Longer Active Carlton Hu MD Acti ve CEFDINIR 300 MG ORAL CAPSULE by mouth twice a day 2010 CEFDINIR 72630565395 No Longer Active Carlton Hu MD Acti ve CEFDINIR 300 MG ORAL CAPSULE by mouth twice a day 2010 CEFDINIR 81836024289 No Longer Active Carlton Hu MD Acti ve TESSALON PERLES 100 MG ORAL CAPSULE 1 tablet by mouth 3 times daily as needed for cough BENZONATATE 27011299010 No Longer Active Carlton Hu MD Active CEFDINIR 300 MG ORAL CAPSULE by mouth twice a day 2010 CEFDINIR 99975148044 No Longer Active Carlton Hu MD Acti ve ZITHROMAX Z-REYNA 250 MG ORAL TABLET 2 today, then 1 daily for 4 d ays AZITHROMYCIN 29488297346 No Longer Active Hugo Restrepo MD Active TESSALON PERLES 100 MG ORAL CAPSULE 1 tablet by mouth 3 times daily as needed for cough TESSALON PERLES 100 MG ORAL CAPSULE 93131 7 BENZONATATE Inactive PREDNISONE 20 MG ORAL TABLET 1 po bid 3 days, then 1 po q day 3 days PREDNISONE 20 MG ORAL TABLET 350701 PREDNISONE [place] ctive LORTAB 7.5-500 MG/15ML ORAL ELIXIR 7.5 ml po q 4 hour prn cough LORTAB 7.5-500 MG/15ML ORAL ELIXIR 6782400 HYDROCODONE-A CETAMINOPHEN Inactive ACETAMINOPHEN-CODEINE #3 300-30 MG ORAL TABLET 1 PO Q 4-6 HR PRN PAIN ACETAMINOPHEN-CODEINE #3 300-30 MG ORAL TABLET ACETAMINOPHEN-CODEINE Inactive CHERATUSSIN AC 100-10 MG/5ML ORAL SYRUP take 1 tsp po q4-6 h ours prn cough CHERATUSSIN AC 100-10 MG/5ML ORAL SYRUP 600195 GUAIFENESIN-CODEINE Inactive ACETAMINOPHEN-CODEINE #3 300-30 MG ORAL TABLET 1 tablet po q 4-6 hrs prn pain ACETAMINOPHEN-CODEINE #3 300-30 MG ORAL TABLET ACETAMINOPHEN-CODEINE Inactive HYDROCODONE-ACETAMINOPHEN 5-325 MG ORAL TABLET 1 po q 6hr PRN co ugh HYDROCODONE-ACETAMINOPHEN 5-325 MG ORAL TABLET 234457 HYDROCODONE-ACETAMINOPHEN Inactive AVELOX 400 MG ORAL TABLET 1 tab by mouth daily AVELOX 400 MG ORAL TABLET 203732 MOXIFLOXACIN HCL Inactive CHERATUSSIN AC 100-10 MG/5ML ORAL SYRUP 1 tsp by mouth every 4 hours as needed for cough CHERATUSSIN AC 100-10 MG/5ML ORAL SYRUP 9 45692 GUAIFENESIN-CODEINE Inactive TERBINAFINE HCL 250 MG ORAL TABLET 1 qDay 07/08 TERBINAFINE HCL 250 MG ORAL TABLET 930667 TERBINAFINE HCL Inactive CHERATUSSIN AC 100-10 MG/5ML ORAL SYRUP 1 tsp by mouth every 4 hours as needed for cough CHERATUSSIN AC 100-10 MG/5ML ORAL SYRUP 9 89931 GUAIFENESIN-CODEINE Inactive ACETAMINOPHEN-CODEINE #3 300-30 MG ORAL TABLET 1 PO Q 4-6 HRS RI N PAIN ACETAMINOPHEN-CODEINE #3 300-30 MG ORAL TABLET ACETAMINOPHEN-CODEINE Inactive CHERATUSSIN AC 100-10 MG/5ML ORAL SYRUP 1 tsp by mouth every 4 hours as needed for cough CHERATUSSIN AC 100-10 MG/5ML ORAL SYRUP 9 69317 GUAIFENESIN-CODEINE Inactive AUGMENTIN 875-125 MG ORAL TABLET 1 tab by mouth twice daily with food AUGMENTIN 875-125 MG ORAL TABLET 228118 AMOXICIL MADELINE-POT CLAVULANATE Inactive CHERATUSSIN AC 100-10 MG/5ML ORAL SYRUP take one tsp po Q 6h ours prn cough CHERATUSSIN AC 100-10 MG/5ML ORAL SYRUP 184893 GUAIFENESIN-CODEINE Inactive PROPRANOLOL HCL 60 MG ORAL TABLET 1 PO Q D PROPRANOLOL HCL 60 MG ORAL TABLET 808773 PROPRANOLOL HCL Inactive TOPAMAX 50 MG ORAL TABLET take 1 tab po BID for migraines. 07/02 TOPAMAX 50 MG ORAL TABLET 173274 TOPIRAMATE Inacti ve TOPAMAX 25 MG ORAL TABLET 1 qHS x 1 week, then 1 BID x 1 week, then 1 qAM and 2 qHS x 1 week, then 2 BID (migraine prevention) TOPAMAX 25 MG ORAL TABLET 375880 TOPIRAMATE Inactive LYRICA 75 MG ORAL CAPSULE TAKE 1 CAPSULE BY MOUTH TWICE DAILY LYRICA 75 MG ORAL CAPSULE PREGABALIN Inactive SYMBICORT 160-4.5 MCG/ACT INHALATION AEROSOL 2 puffs bid wit h rinse after SYMBICORT 160-4.5 MCG/ACT INHALATION AEROSOL BUDESONIDE- FORMOTEROL FUMARATE Inactive PROMETHAZINE-CODEINE 6.25-10 MG/5ML ORAL SYRUP 1 tsp b y mouth every 8 hours prn cough PROMETHAZINE-CODEINE 6.25-10 MG/ 5ML ORAL SYRUP 569957 PROMETHAZINE-CODEINE Inactive CYMBALTA 30 MG ORAL CAPSULE DELAYED RELEASE PARTICLES 1 cap by mouth daily CYMBALTA 30 MG ORAL CAPSULE DELAYED RELE ASE PARTICLES 617778 DULOXETINE HCL Inactive PREMARIN 0.625 MG ORAL TABLET TAKE 1 TAB BY MOUTH DAILY PREMARIN 0.625 MG ORAL TABLET ESTROGENS CONJUGATED Inactive CHERATUSSIN AC 100-10 MG/5ML ORAL SYRUP 1 tsp by mouth every 4 hours as needed for cough CHERATUSSIN AC 100-10 MG/5ML ORAL SYRUP 9 05223 GUAIFENESIN-CODEINE Inactive PROMETHAZINE-CODEINE 6.25-10 MG/5ML ORAL SYRUP 1 tsp b y mouth every 6 hours if needed for cough PROMETHAZINE-CODEINE 6.25-10 MG/5ML ORAL SYRUP 899065 PROMETHAZINE-CODEINE Inactive CHERATUSSIN AC 100-10 MG/5ML ORAL SYRUP 1 tsp by mouth every 4 hours as needed for cough CHERATUSSIN AC 100-10 MG/5ML ORAL SYRUP 9 38418 GUAIFENESIN-CODEINE Inactive FLUTICASONE PROPIONATE 50 MCG/ACT NASAL SUSPENSION 1 t o 2 sprays each nostril daily FLUTICASONE PROPIONATE 50 MCG/AC T NASAL SUSPENSION 7342034 FLUTICASONE PROPIONATE Inactive PREDNISONE 20 MG ORAL TABLET 3 tab PO qd x 2d, 2 tab P O qd x 2d, 1 tab PO qd x 2d, 1/2 tab PO qd x 2d PREDNISONE 20 MG ORAL TAB LET 815612 PREDNISONE Inactive LEVOFLOXACIN 500 MG ORAL TABLET 1 tab PO daily x 10 days LEVOFLOXACIN 500 MG ORAL TABLET 377995 LEVOFLOXACIN Inactive CYCLOBENZAPRINE HCL 10 MG ORAL TABLET 1 tablet by mouth BID prn had pain CYCLOBENZAPRINE HCL 10 MG ORAL TABLET 484498 CYCLOBENZAPRINE HCL Inactive ZOCOR 40 MG ORAL TABLET 1 tab by mouth daily 4 ZOCOR 40 MG ORAL TABLET 864377 SIMVASTATIN Inactive TUSSIONEX PENNKINETIC ER 10-8 MG/5ML [...] FLUTICASONE PROPIO EFE 50 MCG/ACT NASAL SUSPENSION 7421439 FLUTICASONE PROPIONATE Inactive TUSSIONEX PENNKINETIC ER 10-8 [...] ays ZITHROMAX Z-REYNA 250 MG ORAL TABLET 153895 AZITHROMYCIN Inactive CEFDINIR 300 MG ORAL CAPSULE by mouth twice a day 2010 CEFDINIR 300 MG ORAL CAPSULE 039753 CEFDINIR Inactive CEFDINIR 300 MG ORAL CAPSULE by mouth twice a day 2010 CEFDINIR 300 MG ORAL CAPSULE 053852 CEFDINIR Inactive CEFDINIR 300 MG ORAL CAPSULE by mouth twice a day 2010 CEFDINIR 300 MG ORAL CAPSULE 436915 CEFDINIR Inactive CEFDINIR 300 MG ORAL CAPSULE by mouth twice a day 2011 CEFDINIR 300 MG ORAL CAPSULE 336059 CEFDINIR Inactive ZITHROMAX 250 MG ORAL TABLET 2 po today, then 1 po q days 2-5 20 03/07/07 ZITHROMAX 250 MG ORAL TABLET 917884 AZITHROMYCIN [place] ctive CEFDINIR 300 MG ORAL CAPSULE by mouth twice a day 2011 CEFDINIR 300 MG ORAL CAPSULE 050310 CEFDINIR Inactive PREDNISONE 20 MG ORAL TABLET 2 tabs daily for 3 days, 1 tab daily for 3 days, 1/2 tab daily for 2 days PREDNISONE 20 MG ORAL T ABLET 740548 PREDNISONE Inactive AVELOX 400 MG ORAL TABLET 1 tab by mouth daily AVELOX 400 MG ORAL TABLET 442517 MOXIFLOXACIN HCL Inactive AVELOX 400 MG ORAL TABLET 1 tab by mouth daily AVELOX 400 MG ORAL TABLET 564598 MOXIFLOXACIN HCL Inactive PREDNISONE 20 MG ORAL TABLET Take 3 tabs daily for 3 d ays, 2 tabs daily for 3 days, 1 tab daily for 3 days, 1/2 tab daily for 3 days 11/07 PREDNISONE 20 MG ORAL TABLET 125759 PREDNISONE Inactive LEVAQUIN 500 MG ORAL TABLET take one po QD LEVAQUIN 500 MG ORAL TABLET 397034 LEVOFLOXACIN Inactive AZITHROMYCIN 250 MG ORAL TABLET 2 po qd x 1 day, then 1 po q d x 4 days AZITHROMYCIN 250 MG ORAL TABLET 995612 AZITHROMY GIOVANNI Inactive MEDROL 4 MG ORAL TABLET THERAPY PACK 6 tabs on day 1, 5 tabs on day 2, 4 tabs on day 3, 3 tabs on day 4, 2 tabs on day 5, 1 tab on day 6 2013 MEDROL 4 MG ORAL TABLET THERAPY PACK 009931 METHYLPREDNISOLONE [place] ctive CHERATUSSIN AC 100-10 MG/5ML ORAL SYRUP 5ml po q6hr PRN Cough 20 13/04/14 CHERATUSSIN AC 100-10 MG/5ML ORAL SYRUP 006307 GUAIFENE SIN-CODEINE Inactive TRIAMCINOLONE ACETONIDE 0.1 % EXTERNAL CREAM apply three roger es daily prn rash TRIAMCINOLONE ACETONIDE 0.1 % EXTERNAL CREAM 101 4314 TRIAMCINOLONE ACETONIDE Inactive AZITHROMYCIN 250 MG ORAL TABLET 2 po qd x 1 day, then 1 po q d x 4 days AZITHROMYCIN 250 MG ORAL TABLET 542222 AZITHROMY GIOVANNI Inactive MEDROL 4 MG ORAL TABLET THERAPY PACK 6 pills x 1 day, then 5 pills x 1 day then 4 pills x 1 day, then 3 pills x 1 day, then 2 pills x 1 day, then 1 pill x 1 day, then stop MEDROL 4 MG ORAL TABLET THERAPY PACK 983712 METHYLPREDNISOLONE Inactive AMOXICILLIN 500 MG ORAL CAPSULE 1 tab by mouth 3 times daily x 10 days AMOXICILLIN 500 MG ORAL CAPSULE 250797 AMOXICILL IN Inactive AMOXICILLIN 500 MG ORAL CAPSULE 1 tab by mouth 3 times daily x 10 days AMOXICILLIN 500 MG ORAL CAPSULE 743725 AMOXICILL IN Inactive ZITHROMAX 250 MG ORAL TABLET 2 po today, then 1 po q days 2-5 20 12/08/14 ZITHROMAX 250 MG ORAL TABLET 687901 AZITHROMYCIN [place] ctive AUGMENTIN 875-125 MG ORAL TABLET 1 po BID x 10 days 20 13/01/20 AUGMENTIN 875-125 MG ORAL TABLET 252817 AMOXICILLIN-POT CLAVULANATE Inactive ZITHROMAX Z-REYNA 250 MG ORAL TABLET 2 today, then 1 daily for 4 d ays ZITHROMAX Z-REYNA 250 MG ORAL TABLET 438032 AZITHROMYCIN Inactive ZITHROMAX 250 MG ORAL TABLET 2 po today, then 1 po q days 2-5 20 14/03/21 ZITHROMAX 250 MG ORAL TABLET 743743 AZITHROMYCIN [place] ctive ZITHROMAX Z-REYNA 250 MG ORAL TABLET 2 today, then 1 daily for 4 d ays ZITHROMAX Z-REYNA 250 MG ORAL TABLET 097336 AZITHROMYCIN Inactive CEFDINIR 300 MG ORAL CAPSULE 1 po BID x 10 days 06/21 CEFDINIR 300 MG ORAL CAPSULE 657492 CEFDINIR Inactive ZITHROMAX 250 MG ORAL TABLET 2 po today, then 1 po q days 2-5 20 13/08/10 ZITHROMAX 250 MG ORAL TABLET 598119 AZITHROMYCIN [place] ctive LEVAQUIN 500 MG ORAL TABLET 1 tablet by mouth daily 20 13/09/24 LEVAQUIN 500 MG ORAL TABLET 19971102 LEVOFLOXACIN Inactive SINGULAIR 10 MG ORAL TABLET 1 po qday for allergies 20 14/01/12 SINGULAIR 10 MG ORAL TABLET 20010504 MONTELUKAST SODIUM Inactive AMOXICILLIN 500 MG ORAL CAPSULE 2 po BID x 10 days 201 09/29/08 AMOXICILLIN 500 MG ORAL CAPSULE 438389 AMOXICILLIN Inactive PREDNISONE 20 MG ORAL TABLET 2 tabs daily for 3 days, 1 tab daily for 3 days, 1/2 tab daily for 2 days PREDNISONE 20 MG ORAL T ABLET 994567 PREDNISONE Inactive ZITHROMAX Z-REYNA 250 MG ORAL TABLET 2 today, then 1 daily for 4 d ays ZITHROMAX Z-REYNA 250 MG ORAL TABLET 329552 AZITHROMYCIN Inactive PREDNISONE 20 MG ORAL TABLET 2 tabs daily for 3 days, 1 tab daily for 3 days, 1/2 tab daily for 2 days PREDNISONE 20 MG ORAL T ABLET 814978 PREDNISONE Inactive ZITHROMAX 250 MG ORAL TABLET 2 po today, then 1 po q days 2-5 14/09/04 ZITHROMAX 250 MG ORAL TABLET 519218 AZITHROMYCIN [place] [facility] AMOXICILLIN 500 MG ORAL CAPSULE 1 cap by mouth three times a day AMOXICILLIN 500 MG ORAL CAPSULE 066531 AMOXICILLIN Inactive TERBINAFINE HCL 250 MG ORAL TABLET 1 qDay for nail fungus 7 TERBINAFINE HCL 250 MG ORAL TABLET 780035 TERBINAFINE HCL Inact nael Vital Signs Date [...] - Chem istry sodium, serum 132 mmol/L [phone]/07/12 potassium, serum 2.7 mmol/L 3.5-5.2 chloride, serum 93 mmol/L 98-107 carbon dioxide, venous blood 30.8 mmol/L 21.0-32 .0 blood glucose 107 mg/dL 65-110 calcium, serum 9.3 mg/dL 8.5-10.1 urea nitrogen, blood 12 mg/dL 7-18 creatinine, serum 1.00 mg/dL 0.60-1.30 sodium, serum 142 mmol/L 555-902 2985/07/17 potassium, serum 4.2 mmol/L 3.5-5.2 chloride, serum 106 mmol/L 98-107 carbon dioxide, venous blood 29.9 mmol/L 21.0-32 .0 blood glucose 108 mg/dL 65-110 calcium, serum 9.1 mg/dL 8.5-10.1 urea nitrogen, blood 11 mg/dL 7-18 creatinine, serum 0.81 mg/dL 0.60-1.30 Lab Report: Rapid Strep - Lab Microbial identification kit, rapid strep method Negative Negative Encounters Code Encounter Date Provider Facility [id number] Level 3 Est. Patient 13:35:41 [employer] Carlton rich MD [facility] CPT-63865 Level 3 Est. Patient 10:03:52 [employer]ICAL WAREHOUSEMAN Carlton rich MD [facility] CPT-21640 Level 3 Est. Patient 12:17:50 CDT Hugo Restrepo MD [facility] CPT-88831 Level 3 Est. Patient 13:42:38 CDT Italo [facility] CPT-40820 Level 3 Est. Patient 13:23:51 CDT Diya cobian [facility]-88805 Level 3 Est. Patient 14:22:19 CLERICAL WAREHOUSEMAN Diya cobian [facility] CPT-01454 Level 3 Est. Patient 10:11:46 CDT Carlton rich MD [facility] CPT-26084 Level 3 Est. Patient 17:29:43 CDT Italo [facility] CPT-20966 Level 3 Est. Patient 11:58:06 CDT Italo [facility] CPT-54512 Level 4 Est. Patient 14:36:51 CDT Carlton rich MD [facility] CPT-20114 Level 3 Est. Patient 18:16:00 [employer]ICAL WAREHOUSEMAN Blaine HERNANDEZ [facility] CPT-51123 Level 3 Est. Patient 09:45:49 CLERICAL WAREHOUSEMAN Carlton rich MD [facility] CPT-07641 Level 3 Est. Patient 13:19:20 CDT Carlton rich MD [facility]-70962 Level 3 Est. Patient 13:06:43 CDT Ridge tam DO [facility] CPT-54812 Level 3 Est. Patient 10:03:07 CDT Perez Mora MD [facility] CPT-74281 Level 3 Est. Patient 19:50:35 [employer]ICAL WAREHOUSEMAN Carlton rich MD [facility]-67918 Level 4 Est. Patient 18:05:01 CLERICAL WAREHOUSEMAN Carlton rich MD [facility]-46854 Level 3 Est. Patient 10:45:55 CLERICAL WAREHOUSEMAN Hugo Restrepo MD [facility]-93978 Level 3 Est. Patient 14:12:49 CDT Griffin HERNANDEZ [facility] CPT-59872 Level 3 Est. Patient 17:37:24 CDT Carlton rich MD [facility]-32650 Level 3 Est. Patient 16:51:54 CDT Carlton rich MD [facility] CPT-54776 Level 3 Est. Patient 12:18:11 CDT Hugo Restrepo MD [facility] CPT-29155 Level 3 Est. Patient 11:30:25 CDT Marcy crisostomo MD PhD [facility]-37456 Level 3 Est. Patient 12:00:47 CLERICAL WAREHOUSEMAN Carlton rich MD [facility]-82922 Level 3 Est. Patient 16:31:06 CLERICAL WAREHOUSEMAN Carlton rich MD [facility]-98300 Level 3 Est. Patient 16:23:24 CLERICAL WAREHOUSEMAN Ridge tam [facility] CPT-34000 Level 3 Est. Patient 12:34:12 CDT Carlton rich MD [facility] CPT-16926 Level 2 Est. Patient 15:43:33 CDT Robi armstrong MD [facility] CPT-91734 Level 4 Est. Patient 14:04:44 CDT Carlton rich MD [facility] CPT-50011 Level 3 Est. Patient 05:47:59 CDT Ridge tam [facility] CPT-39417 Level 3 Est. Patient 13:12:53 [employer]ICAL WAREHOUSEMAN Carlton rich MD [facility] CPT-62539 Level 3 Est. Patient 14:26:53 CDT Hugo Restrepo MD [facility] Procedures Code Procedure Name Date Entry Date Standard Desc ription CPT-J1040 Depo Medrol 80 mg (Methyl Prednisolone A cetate) 10:42:44 CDT CPT-J1100 Decadron 8mg (Dexamethasone) 10:42:44 CDT 2 CPT-J0696 Rocephin 1gm Inj Solr 14:32:13 CDT CPT-J1020 Depo Medrol 60 mg (Methyl Prednisolone A cetate) 14:32:13 CDT CPT-J1100 Decadron 6mg (Dexamethasone) 14:32:13 CDT 2 CPT-93361 Hip bilat min 2V w AP pelvis 13:16:20 CDT 2 CPT-20686 Pelvis only 13:07:33 CDT CPT-19175 Spec Collection and Handling Fee 11:25:12 C DT CPT-28081 Fluzone Quadrivalent Intramuscular Suspe nsion 0.5 ML 14:31:55 CDT CPT-86597 Abx/Therapy Injection 13:28:47 [employer]ICAL WAREHOUSEMAN CPT-J2930 Solu Medrol 125 mg (Methyl Prednisolone Sodium Succinate) 12:00:47 [employer]ICAL WAREHOUSEMAN CPT-49822 Venipuncture Draw Fee 11:33:31 CDT CPT-03115 EKG Trac and Interp 11:21:09 CDT CPT-72827 Chest 2V Frontal and Lat 11:21:09 CDT 12/15 CPT-42022 Venipuncture Draw Fee 08:02:34 CDT CPT-48502 Chest 2V Frontal and Lat 05:47:59 CDT 06/05
--- OUTSIDE RECORDS SUMMARY | 2019-10-08 08:25 | XMS REPORT | Clinical Summary ---
Author Author Caitlin, Juliana Martinez Organization [facility] Address Unknown Phone Unavailable Allergies, Adverse [...] PRN Cough 20 14/09/04 HYDROCOD POLST-CHLORPHEN POLST 13042069562 Active Elise Whitmore APRN Active ZITHROMAX 250 MG TAB 2 po today, then 1 po q days 2-5 AZITHROMYCIN 92458377984 No Longer Active Elise Whitmore APRN Acti ve TUSSIONEX PENNKINETIC ER 10-8 MG/5ML LQCR 5 ml twice a day a s needed for cough HYDROCOD POLST-CHLORPHEN POLST 84336105826 N o Longer Active Elise Whitmore APRN Active MONTELUKAST SODIUM 10 MG ORAL TABS 1 po daily for Allergy 6 MONTELUKAST SODIUM 03323913971 Active ALFREDO Holly Act nael TUSSIONEX PENNKINETIC ER 10-8 MG/5ML LQCR 5ml po q12hr PRN Cough HYDROCOD POLST-CHLORPHEN POLST 99534598972 No Longer Active Hugo Restrepo MD Active GABAPENTIN 100 MG CAPS 1 po BID for fibromyalgia GABAPENTIN 02498508027 Active Elise Whitmore APRN Active LYRICA 100 MG CAPS Take 1 tab po BID for fibromyalgia PREGABALIN 06741293506 No Longer Active Elise Whitmore APRN Acti ve PROAIR HFA 108 (90 BASE) MCG/ACT AERS 2 puffs four times a d ay as needed ALBUTEROL SULFATE 87077070258 Active Elise Whitmore APRN Active MUCINEX DM MAXIMUM STRENGTH 60-1200 MG [id number] 1 tab po q am 2016 DEXTROMETHORPHAN-GUAIFENESIN 78843521175 Active Jillina Cesarl FUNCTIONAL SUPPORT ANALYST Active PREDNISONE 20 MG TAB 2 tabs daily for 3 days, 1 t ab daily for 3 days, 1/2 tab daily for 2 days PREDNISONE 47054104908 No Longer Active Jillina Cesarl FUNCTIONAL SUPPORT ANALYST Active TUSSIONEX PENNKINETIC ER 10-8 MG/5ML ORAL LQCR 5 mL PO q 12 hrs PRN cough HYDROCOD POLST-CHLORPHEN POLST 25628360813 No Longer Active Jillina Frazell FUNCTIONAL SUPPORT ANALYST Active FLUTICASONE PROPIONATE 50 MCG/ACT SUSP 2 sprays each n ostril daily until bottle is empty FLUTICASONE PROPIONATE 22724003411 No Longer Ac tive Jillina Frazell FUNCTIONAL SUPPORT ANALYST Active ASMANEX 60 METERED DOSES 220 MCG/INH AEPB 1 puff bid with ri nse after MOMETASONE FUROATE 15922477604 No Longer Active Venullina Darlin ell FUNCTIONAL SUPPORT ANALYST Active ZITHROMAX Z-REYNA 250 MG TABS 2 today, then 1 daily for 4 days 201 09/29/14 AZITHROMYCIN 65072269205 No Longer Active Elise Whitmore APRN Active TUSSIONEX PENNKINETIC ER 10-8 MG/5ML LQCR 5ml po q12hr PRN Cough HYDROCOD POLST-CHLORPHEN POLST 87722113287 No Longer Active Elise Whitmore FUNCTIONAL SUPPORT ANALYST Active MUCINEX D 60-600 MG [id number] 1 tab po q am PSEUDOEPHEDRINE-GUAIFENESIN 90819010836 Active Jillina Frazell FUNCTIONAL SUPPORT ANALYST Active PREDNISONE 20 MG TAB 2 tabs daily for 3 days, 1 t ab daily for 3 days, 1/2 tab daily for 2 days PREDNISONE 58526464030 No Longer Active Jillina Frazell FUNCTIONAL SUPPORT ANALYST Active AMOXICILLIN 500 MG CAPS 2 po BID x 10 days AMOX ICILLIN 67399307658 No Longer Active Jillina Frazell FUNCTIONAL SUPPORT ANALYST Active SINGULAIR 10 MG TABS 1 po qday for allergies 2 MONTELUKAST SODIUM 02880971375 No Longer Active Carlton Hu MD Acti ve LEVAQUIN 500 MG TAB 1 tablet by mouth daily LEV OFLOXACIN 86160894730 No Longer Active Carlton Hu MD Active FLUTICASONE PROPIONATE 50 MCG/ACT SUSP 2 sprays each n ostril daily for 2 weeks, then 1 spray each nostril daily. FLUTICASONE PRO PIONATE 35832830339 Active Elise Whitmore APRN Active ZITHROMAX 250 MG TAB 2 po today, then 1 po q days 2-5 AZITHROMYCIN 78853160379 No Longer Active Elise Whitmore APRN Acti ve XANAX 0.5 MG TABS one tablet by mouth daily prn anxiety ALPRAZOLAM 51118257546 Active Elise Whitmore APRN Active CYMBALTA 30 MG CPEP 1 cap by mouth daily for depression DULOXETINE HCL 77391867559 Active Carlton uH MD Active CEFDINIR 300 MG CAPS 1 po BID x 10 days CEFDINI R 83960194488 No Longer Active Carlton Hu MD Active ZOCOR 40 MG TAB 1 tab by mouth daily SIMVASTATI N 61885989574 No Longer Active Carlton Hu MD Active CYCLOBENZAPRINE HCL 10 MG TABS 1 tablet by mouth BID prn had cherelle n CYCLOBENZAPRINE HCL 20185664658 No Longer Active Carlton Hu MD Active LEVOFLOXACIN 500 MG ORAL TABS 1 tab PO daily x 10 days LEVOFLOXACIN 57040884989 No Longer Active Carlton Hu MD Acti ve PREDNISONE 20 MG ORAL TABS 3 tab PO qd x 2d, 2 tab PO qd x 2d, 1 tab PO qd x 2d, 1/2 tab PO qd x 2d PREDNISONE 88336129326 No Longer Active Carlton Hu MD Active FLUTICASONE PROPIONATE 50 MCG/ACT SUSP 1 to 2 sprays each no stril daily FLUTICASONE PROPIONATE 00009222741 No Longer Active T jaz HERNANDEZ Active CHERATUSSIN AC 100-10 MG/5ML SYRP 1 tsp by mouth every 4 hours as needed for cough GUAIFENESIN-CODEINE 09340461485 No Longer Activ e Blaine HERNANDEZ Active PROMETHAZINE-CODEINE 6.25-10 MG/5ML SYRP 1 tsp by mout h every 6 hours if needed for cough PROMETHAZINE-CODEINE 64558518179 No Long er Active Blaine HERNANDEZ Active CHERATUSSIN AC 100-10 MG/5ML SYRP 1 tsp by mouth every 4 hours as needed for cough GUAIFENESIN-CODEINE 82215541392 No Longer Activ e Blaine HERNANDEZ Active ZITHROMAX Z-REYNA 250 MG TABS 2 today, then 1 daily for 4 days 201 08/30/03 AZITHROMYCIN 44059154360 No Longer Active Columba Raida Act nael ZITHROMAX 250 MG TAB 2 po today, then 1 po q days 2-5 AZITHROMYCIN 35181265741 No Longer Active Carlton Hu MD Acti ve ZITHROMAX Z-REYNA 250 MG TABS 2 today, then 1 daily for 4 days 201 08/07/20 AZITHROMYCIN 62985765468 No Longer Active Columba Raida Act nael AUGMENTIN 875-125 MG TAB 1 po BID x 10 days AMOXICILLIN- POT CLAVULANATE 69494999574 No Longer Active Jillina Gege RICEN Active ZITHROMAX 250 MG TAB 2 po today, then 1 po q days 2-5 AZITHROMYCIN 31256145426 No Longer Active Carlton Hu MD Acti ve TRAMADOL HCL 50 MG TABS 1 po tid with ES Tylenol TRAMADOL HCL 26499686715 Active Carlton Hu MD Active PREMARIN 0.625 MG TABS TAKE 1 TAB BY MOUTH DAILY 07/25 ESTROGENS CONJUGATED 74802435542 No Longer Active Ridge Bess DO Active CYMBALTA 30 MG CPEP 1 cap by mouth daily DULOXE SNEHA HCL 55401146495 No Longer Active Ridge Bess DO Active AMOXICILLIN 500 MG CAP 1 tab by mouth 3 times daily x 10 days 20 14/04/28 AMOXICILLIN 67176493535 No Longer Active Carlton Hu MD Active AMOXICILLIN 500 MG CAP 1 tab by mouth 3 times daily x 10 days 20 13/03/08 AMOXICILLIN 67474595302 No Longer Active Carlton Hu MD Active PROMETHAZINE-CODEINE 6.25-10 MG/5ML SYRP 1 tsp by mouth ever y 8 hours prn cough PROMETHAZINE-CODEINE 05717854483 No Longer Active Robert Hu MD Active MEDROL (REYNA) 4 MG TABS 6 pills x 1 day, then 5 pill s x 1 day then 4 pills x 1 day, then 3 pills x 1 day, then 2 pills x 1 day, then 1 pill x 1 day, then stop METHYLPREDNISOLONE 09542391809 No Longer Active Parris Mora MD Active AZITHROMYCIN 250 MG TABS 2 po qd x 1 day, then 1 po qd x 4 days AZITHROMYCIN 74627240109 No Longer Active Perez Mora MD Active SYMBICORT 160-4.5 MCG/ACT AERO 2 puffs bid with rinse after 2011 BUDESONIDE-FORMOTEROL FUMARATE 74926330009 No Longer Active Perez Mora MD Active LYRICA 75 MG CAPS TAKE 1 CAPSULE BY MOUTH TWICE DAILY 2013 PREGABALIN 01402585527 No Longer Active Carlton Hu MD Active TOPAMAX 25 MG TABS 1 qHS x 1 week, then 1 BID x 1 week, then 1 qAM and 2 qHS x 1 week, then 2 BID (migraine prevention) TOPIRAMAT E 02118790006 No Longer Active Jerica FUENTES Active TOPAMAX 50 MG TABS take 1 tab po BID for migraines. 12/07/10 TOPIRAMATE 36278903559 No Longer Active Jerica FUENTES Ac tive TOPAMAX 100 MG TABS Take 1 tablet po bid TOPIRAMATE 4999 3860993 Active Elise Whitmore APRN Active TRIAMCINOLONE ACETONIDE 0.1 % CREA apply three times daily prn r beatrice TRIAMCINOLONE ACETONIDE 54866242220 No Longer Active Carlton Hu MD Active PAXIL 40 MG TAB take 1 tab po qday for depression PAROXETINE HCL 28569792431 Active Elise Whitmore APRN Active CHERATUSSIN AC 100-10 MG/5ML SYRP 5ml po q6hr PRN Cough GUAIFENESIN-CODEINE 96162678561 No Longer Active Carlton Hu MD Active MEDROL (REYNA) 4 MG TABS 6 tabs on day 1, 5 tabs on d ay 2, 4 tabs on day 3, 3 tabs on day 4, 2 tabs on day 5, 1 tab on day 6 METHYLPREDNISOLONE 32448048039 No Longer Active Perez Mora MD Active AZITHROMYCIN 250 MG TABS 2 po qd x 1 day, then 1 po qd x 4 days AZITHROMYCIN 76884285198 No Longer Active Perez Mora MD Active PROPRANOLOL HCL 60 MG TABS 1 PO Q D PROPRANOL OL HCL 09067628892 No Longer Active Perez Mora MD Active CHERATUSSIN AC 100-10 MG/5ML SYRP take one tsp po Q 6hours prn c ough GUAIFENESIN-CODEINE 99735998831 No Longer Active Perez Means Active AUGMENTIN 875-125 MG TAB 1 tab by mouth twice daily with food 12/03/31 AMOXICILLIN-POT CLAVULANATE 18960019412 No Longer Active Chanel Mora MD Active CHERATUSSIN AC 100-10 MG/5ML SYRP 1 tsp by mouth every 4 hours as needed for cough GUAIFENESIN-CODEINE 25159175556 No Longer Activ e Hugo Restrepo MD Active ACETAMINOPHEN-CODEINE #3 300-30 MG TABS 1 PO Q 4-6 HRS PRN PAIN ACETAMINOPHEN-CODEINE 31126410609 No Longer Active Hugo Restrepo MD Active LEVAQUIN 500 MG TABS take one po QD LEVOFLOXACI N 49462722756 No Longer Active Griffin HERNANDEZ Active PREDNISONE 20 MG TAB Take 3 tabs daily for 3 days , 2 tabs daily for 3 days, 1 tab daily for 3 days, 1/2 tab daily for 3 days P REDNISONE 51183643167 No Longer Active Carlton Hu MD Active AVELOX 400 MG TABS 1 tab by mouth daily MOXIFLO XACIN HCL 62736451127 No Longer Active Carlton Hu MD Active CHERATUSSIN AC 100-10 MG/5ML SYRP 1 tsp by mouth every 4 hours as needed for cough GUAIFENESIN-CODEINE 64351885990 No Longer Activ e Hugo Restrepo MD Active AVELOX 400 MG TABS 1 tab by mouth daily MOXIFLO XACIN HCL 15860785009 No Longer Active Marcy De La Rosa MD PhD Active TERBINAFINE HCL 250 MG TABS 1 qDay TERBINAF INE HCL 73866433975 No Longer Active Marcy De La Rosa MD PhD Active CHERATUSSIN AC 100-10 MG/5ML SYRP 1 tsp by mouth every 4 hours as needed for cough GUAIFENESIN-CODEINE 87998285977 No Longer Activ e Marcy De La Rosa MD PhD Active AVELOX 400 MG TABS 1 tab by mouth daily MOXIFLO XACIN HCL 72024464092 No Longer Active Marcy De La Rosa MD PhD Active HYDROCODONE-ACETAMINOPHEN 5-325 MG TABS 1 po q 6hr PRN cough 201 05/09/16 HYDROCODONE-ACETAMINOPHEN 57331317217 No Longer Active Marcy De La Rosa MD PhD Active PREDNISONE 20 MG TAB 2 tabs daily for 3 days, 1 t ab daily for 3 days, 1/2 tab daily for 2 days PREDNISONE 56766022151 No Longer Active Carlton Hu MD Active CEFDINIR 300 MG CAPS by mouth twice a day CEFDI ODILIA 29548837194 No Longer Active Carlton Hu MD Active HYDROCHLOROTHIAZIDE 25 MG TABS 1 TAB PO DAILY H YDROCHLOROTHIAZIDE 18159925488 Active Carlton Hu MD Active ACETAMINOPHEN-CODEINE #3 300-30 MG TABS 1 tablet po q 4-6hrs prn pain ACETAMINOPHEN-CODEINE 77998167404 No Longer Active Ridge Bess DO Active ZITHROMAX 250 MG TAB 2 po today, then 1 po q days 2-5 AZITHROMYCIN 25049745991 No Longer Active Carlton Hu MD Acti ve CHERATUSSIN AC 100-10 MG/5ML SYRP take 1 tsp po q4-6 hours prn c ough GUAIFENESIN-CODEINE 54946526651 No Longer Active Carlton Hu MD Active ACETAMINOPHEN-CODEINE #3 300-30 MG TABS 1 PO Q 4-6 HR PRN PAIN 2 ACETAMINOPHEN-CODEINE 41664690568 No Longer Active Carlton rich MD Active LORTAB 7.5-500 MG/15ML ELIX 7.5 ml po q 4 hour prn cough HYDROCODONE-ACETAMINOPHEN 75408115843 No Longer Active Carlton Hu MD Active PREDNISONE 20 MG TAB 1 po bid 3 days, then 1 po q day 3 days 201 05/03/07 PREDNISONE 96811729642 No Longer Active Carlton Hu MD Active ELMIRON 100 MG CAPS 2 tablets in the am and 1 tablet at hs PENTOSAN POLYSULFATE SODIUM 59149064408 Active Carlton Hu MD Ac tive CEFDINIR 300 MG CAPS by mouth twice a day CEFDI ODILIA 10177027652 No Longer Active Carlton Hu MD Active CEFDINIR 300 MG CAPS by mouth twice a day CEFDI ODILIA 18900351061 No Longer Active Carlton Hu MD Active CEFDINIR 300 MG CAPS by mouth twice a day CEFDI ODILIA 86589961747 No Longer Active Carlton Hu MD Active TESSALON PERLES 100 MG CAP 1 tablet by mouth 3 times daily a s needed for cough BENZONATATE 33303404841 No Longer Active Carlton bustamante MD Active CEFDINIR 300 MG CAPS by mouth twice a day CEFDI ODILIA 93835814244 No Longer Active Carlton Hu MD Active ZITHROMAX Z-REYNA 250 MG TABS 2 today, then 1 daily for 4 days 201 04/09/17 AZITHROMYCIN 39728931558 No Longer Active Hugo Restrepo MD Active TESSALON PERLES 100 MG CAP 1 tablet by mouth 3 times daily a s needed for cough TESSALON PERLES 100 MG CAP 753087 BENZONATATE I nactive PREDNISONE 20 MG TAB 1 po bid 3 days, then 1 po q day 3 days 201 05/03/07 PREDNISONE 20 MG TAB 081609 PREDNISONE Inactive LORTAB 7.5-500 MG/15ML ELIX 7.5 ml po q 4 hour prn cough LORTAB 7.5-500 MG/15ML ELIX HYDROCODONE-ACETAMINOPHEN Inacti ve ACETAMINOPHEN-CODEINE #3 300-30 MG TABS 1 PO Q 4-6 HR PRN PAIN 2 ACETAMINOPHEN-CODEINE #3 300-30 MG TABS ACETAMIN OPHEN-CODEINE Inactive CHERATUSSIN AC 100-10 MG/5ML SYRP take 1 tsp po q4-6 hours prn c ough CHERATUSSIN AC 100-10 MG/5ML SYRP 636035 GUAIFENESIN-CO DEINE Inactive ACETAMINOPHEN-CODEINE #3 300-30 MG TABS 1 tablet po q 4-6hrs prn pain ACETAMINOPHEN-CODEINE #3 300-30 MG TABS ACETAMIN OPHEN-CODEINE Inactive HYDROCODONE-ACETAMINOPHEN 5-325 MG TABS 1 po q 6hr PRN cough 201 05/09/16 HYDROCODONE-ACETAMINOPHEN 5-325 MG TABS 746800 HYDROCODONE-ACETAMINOPHEN Inactive AVELOX 400 MG TABS 1 tab by mouth daily A VELOX 400 MG TABS 323964 MOXIFLOXACIN HCL Inactive CHERATUSSIN AC 100-10 MG/5ML SYRP 1 tsp by mouth every 4 hours as needed for cough CHERATUSSIN AC 100-10 MG/5ML SYRP 636899 GUAIFENESIN-CODEINE Inactive TERBINAFINE HCL 250 MG TABS 1 qDay TERBINAFINE HCL 250 MG TABS 569917 TERBINAFINE HCL Inactive CHERATUSSIN AC 100-10 MG/5ML SYRP 1 tsp by mouth every 4 hours as needed for cough CHERATUSSIN AC 100-10 MG/5ML SYRP 818429 GUAIFENESIN-CODEINE Inactive ACETAMINOPHEN-CODEINE #3 300-30 MG TABS 1 PO Q 4-6 HRS PRN PAIN ACETAMINOPHEN-CODEINE #3 300-30 MG TABS ACETAMINOPHEN-CODEIN E Inactive CHERATUSSIN AC 100-10 MG/5ML SYRP 1 tsp by mouth every 4 hours as needed for cough CHERATUSSIN AC 100-10 MG/5ML SYRP 713311 GUAIFENESIN-CODEINE Inactive AUGMENTIN 875-125 MG TAB 1 tab by mouth twice daily with food 20 12/03/31 AUGMENTIN 875-125 MG TAB 398846 AMOXICILLIN-POT CLAVULA EFE Inactive CHERATUSSIN AC 100-10 MG/5ML SYRP take one tsp po Q 6hours prn c ough CHERATUSSIN AC 100-10 MG/5ML SYRP 513680 GUAIFENESIN-CO DEINE Inactive PROPRANOLOL HCL 60 MG TABS 1 PO Q D P ROPRANOLOL HCL 60 MG TABS 368216 PROPRANOLOL HCL Inactive TOPAMAX 50 MG TABS take 1 tab po BID for migraines. 12/07/10 TOPAMAX 50 MG TABS 043213 TOPIRAMATE Inactive TOPAMAX 25 MG TABS 1 qHS x 1 week, then 1 BID x 1 week, then 1 qAM and 2 qHS x 1 week, then 2 BID (migraine prevention) TOPAMAX 2 5 MG TABS 534517 TOPIRAMATE Inactive LYRICA 75 MG CAPS TAKE 1 CAPSULE BY MOUTH TWICE DAILY LYRICA 75 MG CAPS PREGABALIN Inactive SYMBICORT 160-4.5 MCG/ACT AERO 2 puffs bid with rinse after 2011 SYMBICORT 160-4.5 MCG/ACT AERO BUDESONIDE-FORMOT SÁNCHEZ FUMARATE Inactive PROMETHAZINE-CODEINE 6.25-10 MG/5ML SYRP 1 tsp by mouth ever y 8 hours prn cough PROMETHAZINE-CODEINE 6.25-10 MG/5ML SYRP 982589 PROMETHAZINE-CODEINE Inactive CYMBALTA 30 MG CPEP 1 cap by mouth daily CYMBALTA 30 MG CPEP 060316 DULOXETINE HCL Inactive PREMARIN 0.625 MG TABS TAKE 1 TAB BY MOUTH DAILY 07/25 PREMARIN 0.625 MG TABS ESTROGENS CONJUGATED Inactive CHERATUSSIN AC 100-10 MG/5ML SYRP 1 tsp by mouth every 4 hours as needed for cough CHERATUSSIN AC 100-10 MG/5ML SYRP 957215 GUAIFENESIN-CODEINE Inactive PROMETHAZINE-CODEINE 6.25-10 MG/5ML SYRP 1 tsp by mout h every 6 hours if needed for cough PROMETHAZINE-CODEINE 6.25-10 MG/5ML SYRP 915447 PROMETHAZINE-CODEINE Inactive CHERATUSSIN AC 100-10 MG/5ML SYRP 1 tsp by mouth every 4 hours as needed for cough CHERATUSSIN AC 100-10 MG/5ML SYRP 267201 GUAIFENESIN-CODEINE Inactive FLUTICASONE PROPIONATE 50 MCG/ACT SUSP 1 to 2 sprays each no stril daily FLUTICASONE PROPIONATE 50 MCG/ACT SUSP 5346224 FLUTICASONE PROPIONATE Inactive PREDNISONE 20 MG ORAL TABS 3 tab PO qd x 2d, 2 tab PO qd x 2d, 1 tab PO qd x 2d, 1/2 tab PO qd x 2d PREDNISONE 20 MG ORAL TABS 147562 PREDNISONE Inactive LEVOFLOXACIN 500 MG ORAL TABS 1 tab PO daily x 10 days LEVOFLOXACIN 500 MG ORAL TABS 366446 LEVOFLOXACIN Inactive CYCLOBENZAPRINE HCL 10 MG TABS 1 tablet by mouth BID prn had cherelle n CYCLOBENZAPRINE HCL 10 MG TABS 475528 CYCLOBENZAPRINE H CL Inactive ZOCOR 40 MG TAB 1 tab by mouth daily ZOCOR 40 M G TAB 966924 SIMVASTATIN Inactive TUSSIONEX PENNKINETIC ER 10-8 MG/5ML [...] empty FLUTICASONE PROPIONATE 50 MCG/ACT SUSP 17 53397 FLUTICASONE PROPIONATE Inactive TUSSIONEX PENNKINETIC ER 10-8 [...] 201 04/09/17 ZITHROMAX Z-REYNA 250 MG TABS 7914424 AZITHROMYCIN Inac tive CEFDINIR 300 MG CAPS [...] q days 2-5 ZITHROMAX 250 MG TAB 0166371 AZITHROMYCIN Inactive CEFDINIR 300 MG CAPS by mouth twice a day CEFDINIR 300 MG CAPS 20020704 CEFDINIR Inactive PREDNISONE 20 MG TAB 2 tabs daily for 3 days, 1 t ab daily for 3 days, 1/2 tab daily for 2 days PREDNISONE 20 MG TAB 002257 PREDNISON E Inactive AVELOX 400 MG TABS 1 tab by mouth daily A VELOX 400 MG TABS 819272 MOXIFLOXACIN HCL Inactive AVELOX 400 MG TABS 1 tab by mouth daily A VELOX 400 MG TABS 420611 MOXIFLOXACIN HCL Inactive PREDNISONE 20 MG TAB Take 3 tabs daily for 3 days , 2 tabs daily for 3 days, 1 tab daily for 3 days, 1/2 tab daily for 3 days PREDNISONE 20 MG TAB 207225 PREDNISONE Inactive LEVAQUIN 500 MG TABS take one po QD LEVAQUIN 50 0 MG TABS 183526 LEVOFLOXACIN Inactive AZITHROMYCIN 250 MG TABS 2 po qd x 1 day, then 1 po qd x 4 days AZITHROMYCIN 250 MG TABS 0032785 AZITHROMYCIN Inactiv e MEDROL (REYNA) 4 MG TABS 6 tabs on day 1, 5 tabs on d ay 2, 4 tabs on day 3, 3 tabs on day 4, 2 tabs on day 5, 1 tab on day 6 MEDROL (REYNA) 4 MG TABS 785360 METHYLPREDNISOLONE Inactive CHERATUSSIN AC 100-10 MG/5ML SYRP 5ml po q6hr PRN Cough CHERATUSSIN AC 100-10 MG/5ML SYRP 063830 GUAIFENESIN-CODEINE Inacti ve TRIAMCINOLONE ACETONIDE 0.1 % CREA apply three times daily prn r beatrice TRIAMCINOLONE ACETONIDE 0.1 % CREA 3619050 TRIAMCINOLONE ACETONIDE Inactive AZITHROMYCIN 250 MG TABS 2 po qd x 1 day, then 1 po qd x 4 days AZITHROMYCIN 250 MG TABS 5369729 AZITHROMYCIN Inactiv e MEDROL (REYNA) 4 MG TABS 6 pills x 1 day, then 5 pill s x 1 day then 4 pills x 1 day, then 3 pills x 1 day, then 2 pills x 1 day, then 1 pill x 1 day, then stop MEDROL (REYNA) 4 MG TABS 192266 METHYLPREDNISOLONE Inactive AMOXICILLIN 500 MG CAP 1 tab by mouth 3 times daily x 10 days 20 13/03/08 AMOXICILLIN 500 MG CAP 366914 AMOXICILLIN Inactive AMOXICILLIN 500 MG CAP 1 tab by mouth 3 times daily x 10 days 20 14/04/28 AMOXICILLIN 500 MG CAP 363811 AMOXICILLIN Inactive ZITHROMAX 250 MG TAB 2 po today, then 1 po q days 2-5 ZITHROMAX 250 MG TAB 8973654 AZITHROMYCIN Inactive AUGMENTIN 875-125 MG TAB 1 po BID x 10 days AUGMENTIN 875- 125 MG TAB 677354 AMOXICILLIN-POT CLAVULANATE Inactive ZITHROMAX Z-REYNA 250 MG TABS 2 today, then 1 daily for 4 days 201 08/07/20 ZITHROMAX Z-REYNA 250 MG TABS 6166967 AZITHROMYCIN Inac tive ZITHROMAX 250 MG TAB 2 po today, then 1 po q days 2-5 ZITHROMAX 250 MG TAB 7733167 AZITHROMYCIN Inactive ZITHROMAX Z-REYNA 250 MG TABS 2 today, then 1 daily for 4 days 201 08/30/03 ZITHROMAX Z-REYNA 250 MG TABS 5679612 AZITHROMYCIN Inac tive CEFDINIR 300 MG CAPS 1 po BID x 10 days C EFDINIR 300 MG CAPS 20020704 CEFDINIR Inactive ZITHROMAX 250 MG TAB 2 po today, then 1 po q days 2-5 ZITHROMAX 250 MG TAB 3765512 AZITHROMYCIN Inactive LEVAQUIN 500 MG TAB 1 tablet by mouth daily LEVAQUIN 500 MG TAB 991098 LEVOFLOXACIN Inactive SINGULAIR 10 MG TABS 1 po qday for allergies 2 SINGULAIR 10 MG TABS 20010504 MONTELUKAST SODIUM Inactive AMOXICILLIN 500 MG CAPS 2 po BID x 10 days AMOXICILLIN 500 MG CAPS 086997 AMOXICILLIN Inactive PREDNISONE 20 MG TAB 2 tabs daily for 3 days, 1 t ab daily for 3 days, 1/2 tab daily for 2 days PREDNISONE 20 MG TAB 949553 PREDNISON E Inactive ZITHROMAX Z-REYNA 250 MG TABS 2 today, then 1 daily for 4 days 201 09/29/14 ZITHROMAX Z-REYNA 250 MG TABS 5224076 AZITHROMYCIN Inac tive PREDNISONE 20 MG TAB 2 tabs daily for 3 days, 1 t ab daily for 3 days, 1/2 tab daily for 2 days PREDNISONE 20 MG TAB 832083 PREDNISON E Inactive ZITHROMAX 250 MG TAB 2 po today, then 1 po q days 2-5 ZITHROMAX 250 MG TAB 0593141 AZITHROMYCIN Inactive Vital Signs Date Name Value [...] - Chem istry sodium, serum 132 mmol/L 405-708 5519/07/12 potassium, serum 2.7 mmol/L 3.5-5.2 chloride, serum 93 mmol/L 98-107 carbon dioxide, venous blood 30.8 mmol/L 21.0-32 .0 blood glucose 107 mg/dL 65-110 calcium, serum 9.3 mg/dL 8.5-10.1 urea nitrogen, blood 12 mg/dL 7-18 creatinine, serum 1.00 mg/dL 0.60-1.30 Lab Report: Rapid Strep - Lab Microbial identification kit, rapid strep method Negative Negative Encounters Code Encounter Date Provider Facility CPT-59366 Level 3 Est. Patient 12:17:50 CDT Hugo Restrepo MD [facility] CPT-98495 Level 3 Est. Patient 13:42:38 CDT Italo [facility] CPT-29425 Level 3 Est. Patient 13:23:51 CDT Diya cobian [facility] CPT-43770 Level 3 Est. Patient 14:22:19 [employer] Diya cobian [facility] CPT-89058 Level 3 Est. Patient 10:11:46 CDT Carlton rich MD [facility] CPT-61543 Level 3 Est. Patient 17:29:43 CDT Italo [facility] CPT-54856 Level 3 Est. Patient 11:58:06 CDT Italo [facility] CPT-82198 Level 4 Est. Patient 14:36:51 CDT Carlton rich MD [facility] CPT-32196 Level 3 Est. Patient 18:16:00 [employer] Blaine HERNANDEZ [facility] CPT-02239 Level 3 Est. Patient 09:45:49 [employer] Carlton rich MD [facility]-56489 Level 3 Est. Patient 13:19:20 CDT Carlton rich MD [facility]-80905 Level 3 Est. Patient 13:06:43 CDT Ridge tam DO [facility] CPT-64863 Level 3 Est. Patient 10:03:07 CDT Perez Mora MD [facility]-44520 Level 3 Est. Patient 19:50:35 [employer] Carlton rich MD [facility]-02201 Level 4 Est. Patient 18:05:01 [employer] Carlton rich MD [facility] CPT-33243 Level 3 Est. Patient 10:45:55 [employer] Hugo Restrepo MD [facility] CPT-41705 Level 3 Est. Patient 14:12:49 CDT Griffin HERNANDEZ [facility] CPT-45261 Level 3 Est. Patient 17:37:24 CDT Carlton rich MD [facility]-23221 Level 3 Est. Patient 16:51:54 CDT Carlton rich MD [facility]-77919 Level 3 Est. Patient 12:18:11 CDT Hugo Restrepo MD [facility]-93190 Level 3 Est. Patient 11:30:25 CDT Marcy crisostomo MD PhD [facility]-94363 Level 3 Est. Patient 12:00:47 [employer] Carlton rich MD [facility]-78403 Level 3 Est. Patient 16:31:06 [employer] Carlton rich MD [facility]-25763 Level 3 Est. Patient 16:23:24 [employer] Ridge tam [facility] CPT-58172 Level 3 Est. Patient 12:34:12 CDT Carlton rich MD [facility] CPT-52358 Level 2 Est. Patient 15:43:33 CDT Robi armstrong MD [facility] CPT-54497 Level 4 Est. Patient 14:04:44 CDT Carlton rich MD [facility] CPT-45880 Level 3 Est. Patient 05:47:59 CDT [place] tam [facility] CPT-93465 Level 3 Est. Patient 13:12:53 [employer]MENT Carlton rich MD [facility] CPT-97657 Level 3 Est. Patient 14:26:53 CDT Hugo Restrepo MD [facility] Procedures Code Procedure Name Date Entry Date Standard Desc ription CPT-J1040 Depo Medrol 80 mg (Methyl Prednisolone A cetate) 10:42:44 CDT CPT-J1100 Decadron 8mg (Dexamethasone) 10:42:44 CDT 2 CPT-J0696 Rocephin 1gm Inj Solr 14:32:13 CDT CPT-J1020 Depo Medrol 60 mg (Methyl Prednisolone A cetate) 14:32:13 CDT CPT-J1100 Decadron 6mg (Dexamethasone) 14:32:13 CDT 2 CPT-13064 Hip bilat min 2V w AP pelvis 13:16:20 CDT 2 CPT-96173 Pelvis only 13:07:33 CDT CPT-61489 Spec Collection and Handling Fee 11:25:12 C DT CPT-77549 Fluzone Quadrivalent Intramuscular Suspe nsion 0.5 ML 14:31:55 CDT CPT-21558 Abx/Therapy Injection 13:28:47 [employer] CPT-J2930 Solu Medrol 125 mg (Methyl Prednisolone Sodium Succinate) 12:00:47 [employer] CPT-45136 Venipuncture Draw Fee 11:33:31 CDT CPT-49639 EKG Trac and Interp 11:21:09 CDT CPT-92620 Chest 2V Frontal and Lat 11:21:09 CDT 12/15 CPT-83850 Venipuncture Draw Fee 08:02:34 CDT CPT-99684 Chest 2V Frontal and Lat 05:47:59 CDT 06/05
--- OUTSIDE RECORDS SUMMARY | 2019-10-08 08:25 | XMS REPORT | Clinical Summary ---
Author Author Caitlin, Juliana Martinez Organization [facility] Address Unknown Phone Unavailable Allergies, Adverse [...] MD Pelvic pain, acute ICD-789.09 Inactive Hugo Rsetrepo MD Sinusitis ICD-473.9 Inactive Hugo Restrepo MD [...] po qd x 5 days P REDNISONE [id number] No Longer Active Perez Mora MD Active PROAIR HFA 108 (90 BASE) MCG/ACT INHALATION AEROSOL SO LUTION 2 puffs four times a day as needed ALBUTEROL SULFATE 78549012441 No Long er Active Becky FUENTES Active ASPIRIN 81 MG ORAL TABLET 1 po qd ASPIRIN 11142439820 Active Carlton Hu MD Active PREDNISONE 20 MG ORAL TABLET 1 tab twice daily for 3 d ay, then one daily for three days PREDNISONE 49097925261 No Longer Active Carlton Hu MD Active AUGMENTIN 875-125 MG ORAL TABLET 1 po BID x 10 days 20 16/03/22 AMOXICILLIN-POT CLAVULANATE 13379784164 No Longer Active Elise Garcia APRN Active TERBINAFINE HCL 250 MG ORAL TABLET 1 qDay for nail fungus 7 TERBINAFINE HCL 95137420380 No Longer Active Carlton Hu MD A ctive TUSSIONEX PENNKINETIC ER 10-8 MG/5ML ORAL SUSPENSION E XTENDED RELEASE 5ml po q12hr PRN Cough HYDROCOD POLST-CHLORPHEN POLST 86373019928 Active Perez Mora MD Active AMOXICILLIN 500 MG ORAL CAPSULE 1 cap by mouth three times a day AMOXICILLIN 97119767269 No Longer Active Carlton Hu MD Active ELMIRON 100 MG ORAL CAPSULE 2 tablets in the am and 1 tablet at hs PENTOSAN POLYSULFATE SODIUM 45521953173 No Longer Active Robert Hu MD Active MUCINEX D 60-600 MG ORAL TABLET EXTENDED RELEASE 12 HOUR 1 t ab po q am PSEUDOEPHEDRINE-GUAIFENESIN 05481508776 No Longer Act nael Carlton Hu MD Active MUCINEX DM MAXIMUM STRENGTH 60-1200 MG ORAL TABLET EXT ENDED RELEASE 12 HOUR 1 tab po q am DEXTROMETHORPHAN-GUAIFENESIN 67404761544 No Longer Active Carlton Hu MD Active TUSSIONEX PENNKINETIC ER 10-8 MG/5ML ORAL SUSPENSION E XTENDED RELEASE 5ml po q12hr PRN Cough HYDROCOD POLST-CHLORPHEN POLST 5 2065203694 No Longer Active Carlton Hu MD Active POTASSIUM CHLORIDE ER 20 MEQ ORAL TABLET EXTENDED RELE ASE Take 1 by mouth 4 times daily for 7 days POTASSIUM CHLORIDE 49717898213 No Longer Active Carlton Hu MD Active ZITHROMAX 250 MG ORAL TABLET 2 po today, then 1 po q days 2-5 20 14/09/04 AZITHROMYCIN 40148179951 No Longer Active Elise Garcia APRN Active TUSSIONEX PENNKINETIC ER 10-8 MG/5ML ORAL SUSPENSION E XTENDED RELEASE 5 ml twice a day as needed for cough HYDROCOD POLST-CHLORPH EN POLST 30289058795 No Longer Active Elise Garcia APRN Active MONTELUKAST SODIUM 10 MG ORAL TABLET 1 po daily for Allergy MONTELUKAST SODIUM 20912103432 Active Carlton Hu MD Ac tive TUSSIONEX PENNKINETIC ER 10-8 MG/5ML ORAL SUSPENSION E XTENDED RELEASE 5ml po q12hr PRN Cough HYDROCOD POLST-CHLORPHEN POLST 5 0293491032 No Longer Active Hugo Restrepo MD Active GABAPENTIN 100 MG ORAL CAPSULE 1 po BID for fibromyalgia GABAPENTIN 45515662497 Active Carlton Hu MD Active LYRICA 100 MG ORAL CAPSULE Take 1 tab po BID for fibromyalgia 20 11/08/21 PREGABALIN 93447066890 No Longer Active Elise Garcia APRN A ctive PREDNISONE 20 MG ORAL TABLET 2 tabs daily for 3 days, 1 tab daily for 3 days, 1/2 tab daily for 2 days PREDNISONE 32116389585 No Longer Active Diya De Guzman APRN Active TUSSIONEX PENNKINETIC ER 10-8 MG/5ML ORAL SUSPENSION E XTENDED RELEASE 5 mL PO q 12 hrs PRN cough HYDROCOD POLST-CHLORPHEN POLST 652544 10042 No Longer Active Jillina Gege RICEN Active FLUTICASONE PROPIONATE 50 MCG/ACT NASAL SUSPENSION 2 s prays each nostril daily until bottle is empty FLUTICASONE PROPIONATE 970554781 99 No Longer Active Diya De Guzman APRN Active ASMANEX 60 METERED DOSES 220 MCG/INH INHALATION AEROSO L POWDER BREATH ACTIVATED 1 puff bid with rinse after MOMETASONE FUROATE 0157182 4102 No Longer Active Diya De Guzman APRN Active ZITHROMAX Z-REYNA 250 MG ORAL TABLET 2 today, then 1 daily for 4 d ays AZITHROMYCIN 49010381034 No Longer Active Elise Garcia APRN Active TUSSIONEX PENNKINETIC ER 10-8 MG/5ML ORAL SUSPENSION E XTENDED RELEASE 5ml po q12hr PRN Cough HYDROCOD POLST-CHLORPHEN POLST 5 2993105067 No Longer Active Elise Garcia APRN Active PREDNISONE 20 MG ORAL TABLET 2 tabs daily for 3 days, 1 tab daily for 3 days, 1/2 tab daily for 2 days PREDNISONE 34743040686 No Longer Active Diya De Guzman APRN Active AMOXICILLIN 500 MG ORAL CAPSULE 2 po BID x 10 days 201 09/29/08 AMOXICILLIN 39197277441 No Longer Active Diya De Guzman APRN Act nael SINGULAIR 10 MG ORAL TABLET 1 po qday for allergies 20 14/01/12 MONTELUKAST SODIUM 90226010871 No Longer Active Carlton Hu MD Active LEVAQUIN 500 MG ORAL TABLET 1 tablet by mouth daily 20 13/09/24 LEVOFLOXACIN 82840065645 No Longer Active Carlton Hu MD Acti ve FLUTICASONE PROPIONATE 50 MCG/ACT NASAL SUSPENSION 2 s prays each nostril daily for 2 weeks, then 1 spray each nostril daily. FLUTICASONE PROPIONATE 51229187876 Active Elise Garcia APRN Active ZITHROMAX 250 MG ORAL TABLET 2 po today, then 1 po q days 2-5 20 13/08/10 AZITHROMYCIN 89227970493 No Longer Active Elise Garcia APRN Active XANAX 0.5 MG ORAL TABLET one tablet by mouth daily prn anxiety 2015 ALPRAZOLAM 57424947936 Active Carlton Hu MD Active CYMBALTA 30 MG ORAL CAPSULE DELAYED RELEASE PARTICLES 1 cap by mouth daily for depression DULOXETINE HCL 05540038478 Active Carlton beltrán MD Active CEFDINIR 300 MG ORAL CAPSULE 1 po BID x 10 days CEFDINIR 08020958324 No Longer Active Carlton Hu MD Active ZOCOR 40 MG ORAL TABLET 1 tab by mouth daily SI MVASTATIN 01675798946 No Longer Active Carlton Hu MD Active CYCLOBENZAPRINE HCL 10 MG ORAL TABLET 1 tablet by mouth BID prn had pain CYCLOBENZAPRINE HCL 37824680280 No Longer Active Jayden Hu MD Active LEVOFLOXACIN 500 MG ORAL TABLET 1 tab PO daily x 10 days LEVOFLOXACIN 27375318945 No Longer Active Carlton Hu MD Acti ve PREDNISONE 20 MG ORAL TABLET 3 tab PO qd x 2d, 2 tab P O qd x 2d, 1 tab PO qd x 2d, 1/2 tab PO qd x 2d PREDNISONE 13395714008 No Lo nger Active Carlton Hu MD Active FLUTICASONE PROPIONATE 50 MCG/ACT NASAL SUSPENSION 1 t o 2 sprays each nostril daily FLUTICASONE PROPIONATE 96258336251 No Longer Ac tive Blaine HERNANDEZ Active CHERATUSSIN AC 100-10 MG/5ML ORAL SYRUP 1 tsp by mouth every 4 hours as needed for cough GUAIFENESIN-CODEINE 44338218196 No Longe r Active Blaine HERNANDEZ Active PROMETHAZINE-CODEINE 6.25-10 MG/5ML ORAL SYRUP 1 tsp b y mouth every 6 hours if needed for cough PROMETHAZINE-CODEINE 88777475569 No Longer Active Blaine HERNANDEZ Active CHERATUSSIN AC 100-10 MG/5ML ORAL SYRUP 1 tsp by mouth every 4 hours as needed for cough GUAIFENESIN-CODEINE 13610255109 No Longe r Active Blaine HERNANDEZ Active ZITHROMAX Z-REYNA 250 MG ORAL TABLET 2 today, then 1 daily for 4 d ays AZITHROMYCIN 26932566723 No Longer Active Columba Raida Act nael ZITHROMAX 250 MG ORAL TABLET 2 po today, then 1 po q days 2-5 20 14/03/21 AZITHROMYCIN 54562526689 No Longer Active Carlton Hu MD Active ZITHROMAX Z-REYNA 250 MG ORAL TABLET 2 today, then 1 daily for 4 d ays AZITHROMYCIN 19468201821 No Longer Active Columba Raida Act nael AUGMENTIN 875-125 MG ORAL TABLET 1 po BID x 10 days 13/01/20 AMOXICILLIN-POT CLAVULANATE 94583384097 No Longer Active Diya De Guzman APRN Active ZITHROMAX 250 MG ORAL TABLET 2 po today, then 1 po q days 2-5 20 12/08/14 AZITHROMYCIN 72966001599 No Longer Active Carlton Hu MD Active TRAMADOL HCL 50 MG ORAL TABLET 1 po tid with ES Tylenol TRAMADOL HCL 78668362876 Active Carlton Hu MD Active PREMARIN 0.625 MG ORAL TABLET TAKE 1 TAB BY MOUTH DAILY ESTROGENS CONJUGATED 78757154407 No Longer Active Ridge Bess DO A ctive CYMBALTA 30 MG ORAL CAPSULE DELAYED RELEASE PARTICLES 1 cap by mouth daily DULOXETINE HCL 43073995005 No Longer Active Ridge tam DO Active AMOXICILLIN 500 MG ORAL CAPSULE 1 tab by mouth 3 times daily x 10 days AMOXICILLIN 53562350109 No Longer Active Carlton bustamante MD Active AMOXICILLIN 500 MG ORAL CAPSULE 1 tab by mouth 3 times daily x 10 days AMOXICILLIN 11329133652 No Longer Active Carlton bustamante MD Active PROMETHAZINE-CODEINE 6.25-10 MG/5ML ORAL SYRUP 1 tsp b y mouth every 8 hours prn cough PROMETHAZINE-CODEINE 22536033325 No Longer Acti ve Carlton Hu MD Active MEDROL 4 MG ORAL TABLET THERAPY PACK 6 pills x 1 day, then 5 pills x 1 day then 4 pills x 1 day, then 3 pills x 1 day, then 2 pills x 1 day, then 1 pill x 1 day, then stop METHYLPREDNISOLONE 96200313012 No Long er Active Perez Mora MD Active AZITHROMYCIN 250 MG ORAL TABLET 2 po qd x 1 day, then 1 po q d x 4 days AZITHROMYCIN 68195895732 No Longer Active Perez Ambriz MD Active SYMBICORT 160-4.5 MCG/ACT INHALATION AEROSOL 2 puffs bid wit h rinse after BUDESONIDE-FORMOTEROL FUMARATE 72354099077 N o Longer Active Perez Mora MD Active LYRICA 75 MG ORAL CAPSULE TAKE 1 CAPSULE BY MOUTH TWICE DAILY PREGABALIN 73298165345 No Longer Active Carlton Hu MD Acti ve TOPAMAX 25 MG ORAL TABLET 1 qHS x 1 week, then 1 BID x 1 week, then 1 qAM and 2 qHS x 1 week, then 2 BID (migraine prevention) T OPIRAMATE 19278487511 No Longer Active Jerica FUENTES Active TOPAMAX 50 MG ORAL TABLET take 1 tab po BID for migraines. 07/02 TOPIRAMATE 72261521649 No Longer Active Jerica FUENTES Active TOPAMAX 100 MG ORAL TABLET Take 1 tablet po bid TO PIRAMATE 66399159631 Active Carlton Hu MD Active TRIAMCINOLONE ACETONIDE 0.1 % EXTERNAL CREAM apply three roger es daily prn rash TRIAMCINOLONE ACETONIDE 70788824908 No Longer Active Carlton Hu MD Active PAXIL 40 MG ORAL TABLET take 1 tab po qday for depression 0 PAROXETINE HCL 40647377490 Active Carlton Hu MD Active CHERATUSSIN AC 100-10 MG/5ML ORAL SYRUP 5ml po q6hr PRN Cough 20 13/04/14 GUAIFENESIN-CODEINE 25720751714 No Longer Active Carlton Hu MD Active MEDROL 4 MG ORAL TABLET THERAPY PACK 6 tabs on day 1, 5 tabs on day 2, 4 tabs on day 3, 3 tabs on day 4, 2 tabs on day 5, 1 tab on day 6 2013 METHYLPREDNISOLONE 44511042419 No Longer Active Perez Mora MD Active AZITHROMYCIN 250 MG ORAL TABLET 2 po qd x 1 day, then 1 po q d x 4 days AZITHROMYCIN 87836807619 No Longer Active Perez Ambriz MD Active PROPRANOLOL HCL 60 MG ORAL TABLET 1 PO Q D PROPRANOLOL HCL 81582073198 No Longer Active Perez Mora MD Activ e CHERATUSSIN AC 100-10 MG/5ML ORAL SYRUP take one tsp po Q 6h ours prn cough GUAIFENESIN-CODEINE 79641047534 No Longer Active Zia Mora MD Active AUGMENTIN 875-125 MG ORAL TABLET 1 tab by mouth twice daily with food AMOXICILLIN-POT CLAVULANATE 47519788485 No Longer Act nael Perez Mora MD Active CHERATUSSIN AC 100-10 MG/5ML ORAL SYRUP 1 tsp by mouth every 4 hours as needed for cough GUAIFENESIN-CODEINE 74235913703 No Longe r Active Hugo Restrepo MD Active ACETAMINOPHEN-CODEINE #3 300-30 MG ORAL TABLET 1 PO Q 4-6 HRS GA N PAIN ACETAMINOPHEN-CODEINE 32769377566 No Longer Active Hugo Restrepo MD Active LEVAQUIN 500 MG ORAL TABLET take one po QD LEVO FLOXACIN 43799270696 No Longer Active Griffin HERNANDEZ Active PREDNISONE 20 MG ORAL TABLET Take 3 tabs daily for 3 d ays, 2 tabs daily for 3 days, 1 tab daily for 3 days, 1/2 tab daily for 3 days 11/07 PREDNISONE 44528769165 No Longer Active Carlton Hu MD Acti ve AVELOX 400 MG ORAL TABLET 1 tab by mouth daily MOXIFLOXACIN HCL 79275069339 No Longer Active Carlton Hu MD Active CHERATUSSIN AC 100-10 MG/5ML ORAL SYRUP 1 tsp by mouth every 4 hours as needed for cough GUAIFENESIN-CODEINE 33691831141 No Longe r Active Hugo Restrepo MD Active AVELOX 400 MG ORAL TABLET 1 tab by mouth daily MOXIFLOXACIN HCL 99596354236 No Longer Active Marcy De La Rosa MD PhD Active TERBINAFINE HCL 250 MG ORAL TABLET 1 qDay T ERBINAFINE HCL 80514461125 No Longer Active Marcy De La Rosa MD PhD Active CHERATUSSIN AC 100-10 MG/5ML ORAL SYRUP 1 tsp by mouth every 4 hours as needed for cough GUAIFENESIN-CODEINE 02426682117 No Longe r Active Marcy De La Rosa MD PhD Active AVELOX 400 MG ORAL TABLET 1 tab by mouth daily MOXIFLOXACIN HCL 82158798203 No Longer Active Marcy De La Rosa MD PhD Active HYDROCODONE-ACETAMINOPHEN 5-325 MG ORAL TABLET 1 po q 6hr PRN co ugh HYDROCODONE-ACETAMINOPHEN 98848990623 No Longer Active Marcy De La Rosa MD PhD Active PREDNISONE 20 MG ORAL TABLET 2 tabs daily for 3 days, 1 tab daily for 3 days, 1/2 tab daily for 2 days PREDNISONE 66779062177 No Longer Active Carlton Hu MD Active CEFDINIR 300 MG ORAL CAPSULE by mouth twice a day 2011 CEFDINIR 36697361588 No Longer Active Carlton Hu MD Acti ve HYDROCHLOROTHIAZIDE 25 MG ORAL TABLET 1 TAB PO DAILY HYDROCHLOROTHIAZIDE 45280521594 Active Carlton Hu MD A ctive ACETAMINOPHEN-CODEINE #3 300-30 MG ORAL TABLET 1 tablet po q 4-6 hrs prn pain ACETAMINOPHEN-CODEINE 52558514714 No Longer Active Ridge Bess DO Active ZITHROMAX 250 MG ORAL TABLET 2 po today, then 1 po q days 2-5 20 03/07/07 AZITHROMYCIN 42297929177 No Longer Active Carlton Hu MD Active CHERATUSSIN AC 100-10 MG/5ML ORAL SYRUP take 1 tsp po q4-6 h ours prn cough GUAIFENESIN-CODEINE 45449601849 No Longer Active Jayden Hu MD Active ACETAMINOPHEN-CODEINE #3 300-30 MG ORAL TABLET 1 PO Q 4-6 HR PRN PAIN ACETAMINOPHEN-CODEINE 67711320889 No Longer Active Arnol Hu MD Active LORTAB 7.5-500 MG/15ML ORAL ELIXIR 7.5 ml po q 4 hour prn cough HYDROCODONE-ACETAMINOPHEN 70956827488 No Longer Active Carlton Hu MD Active PREDNISONE 20 MG ORAL TABLET 1 po bid 3 days, then 1 po q day 3 days PREDNISONE 44579326042 No Longer Active Carlton Hu MD Active CEFDINIR 300 MG ORAL CAPSULE by mouth twice a day 2011 CEFDINIR 56228373667 No Longer Active Carlton Hu MD Acti ve CEFDINIR 300 MG ORAL CAPSULE by mouth twice a day 2010 CEFDINIR 24625227124 No Longer Active Carlton Hu MD Acti ve CEFDINIR 300 MG ORAL CAPSULE by mouth twice a day 2010 CEFDINIR 11605771833 No Longer Active Carlton Hu MD Acti ve TESSALON PERLES 100 MG ORAL CAPSULE 1 tablet by mouth 3 times daily as needed for cough BENZONATATE 62624397067 No Longer Active Carlton Hu MD Active CEFDINIR 300 MG ORAL CAPSULE by mouth twice a day 2010 CEFDINIR 33166510375 No Longer Active Carlton Hu MD Acti ve ZITHROMAX Z-REYNA 250 MG ORAL TABLET 2 today, then 1 daily for 4 d ays AZITHROMYCIN 13868576869 No Longer Active Hugo Restrepo MD Active TESSALON PERLES 100 MG ORAL CAPSULE 1 tablet by mouth 3 times daily as needed for cough TESSALON PERLES 100 MG ORAL CAPSULE 05033 7 BENZONATATE Inactive PREDNISONE 20 MG ORAL TABLET 1 po bid 3 days, then 1 po q day 3 days PREDNISONE 20 MG ORAL TABLET 024123 PREDNISONE [place] ctive LORTAB 7.5-500 MG/15ML ORAL ELIXIR 7.5 [...] cough CHERATUSSIN AC 100-10 MG/5ML ORAL SYRUP 343749 GUAIFENESIN-CODEINE Inactive ACETAMINOPHEN-CODEINE #3 300-30 MG ORAL TABLET 1 tablet po q 4-6 hrs prn pain ACETAMINOPHEN-CODEINE #3 300-30 MG ORAL TABLET ACETAMINOPHEN-CODEINE Inactive HYDROCODONE-ACETAMINOPHEN 5-325 MG ORAL TABLET 1 po q 6hr PRN co ugh HYDROCODONE-ACETAMINOPHEN 5-325 MG ORAL TABLET 535807 HYDROCODONE-ACETAMINOPHEN Inactive AVELOX 400 MG ORAL TABLET 1 tab by mouth daily AVELOX 400 MG ORAL TABLET 272149 MOXIFLOXACIN HCL Inactive CHERATUSSIN AC 100-10 MG/5ML ORAL SYRUP 1 tsp by mouth every 4 hours as needed for cough CHERATUSSIN AC 100-10 MG/5ML ORAL SYRUP 9 10697 GUAIFENESIN-CODEINE Inactive TERBINAFINE HCL 250 MG ORAL TABLET 1 qDay 07/08 TERBINAFINE HCL 250 MG ORAL TABLET 371081 TERBINAFINE HCL Inactive CHERATUSSIN AC 100-10 MG/5ML ORAL SYRUP 1 tsp by mouth every 4 hours as needed for cough CHERATUSSIN AC 100-10 MG/5ML ORAL SYRUP 9 59715 GUAIFENESIN-CODEINE Inactive ACETAMINOPHEN-CODEINE #3 300-30 MG ORAL TABLET 1 PO Q 4-6 HRS GA N PAIN ACETAMINOPHEN-CODEINE #3 300-30 MG ORAL TABLET ACETAMINOPHEN-CODEINE Inactive CHERATUSSIN AC 100-10 MG/5ML ORAL SYRUP 1 tsp by mouth every 4 hours as needed for cough CHERATUSSIN AC 100-10 MG/5ML ORAL SYRUP 9 15453 GUAIFENESIN-CODEINE Inactive AUGMENTIN 875-125 MG ORAL TABLET 1 tab by mouth twice daily with food AUGMENTIN 875-125 MG ORAL TABLET 150557 AMOXICIL MADELINE-POT CLAVULANATE Inactive CHERATUSSIN AC 100-10 MG/5ML ORAL SYRUP take one tsp po Q 6h ours prn cough CHERATUSSIN AC 100-10 MG/5ML ORAL SYRUP 313241 GUAIFENESIN-CODEINE Inactive PROPRANOLOL HCL 60 MG ORAL TABLET 1 PO Q D PROPRANOLOL HCL 60 MG ORAL TABLET 403374 PROPRANOLOL HCL Inactive TOPAMAX 50 MG ORAL TABLET take 1 tab po BID for migraines. 07/02 TOPAMAX 50 MG ORAL TABLET 133389 TOPIRAMATE Inacti ve TOPAMAX 25 MG ORAL TABLET 1 qHS x 1 week, then 1 BID x 1 week, then 1 qAM and 2 qHS x 1 week, then 2 BID (migraine prevention) TOPAMAX 25 MG ORAL TABLET 794146 TOPIRAMATE Inactive LYRICA 75 MG ORAL CAPSULE TAKE 1 CAPSULE BY MOUTH TWICE DAILY LYRICA 75 MG ORAL CAPSULE PREGABALIN Inactive SYMBICORT 160-4.5 MCG/ACT INHALATION AEROSOL 2 puffs bid wit h rinse after SYMBICORT 160-4.5 MCG/ACT INHALATION AEROSOL BUDESONIDE- FORMOTEROL FUMARATE Inactive PROMETHAZINE-CODEINE 6.25-10 MG/5ML ORAL SYRUP 1 tsp b y mouth every 8 hours prn cough PROMETHAZINE-CODEINE 6.25-10 MG/ 5ML ORAL SYRUP 238949 PROMETHAZINE-CODEINE Inactive CYMBALTA 30 MG ORAL CAPSULE DELAYED RELEASE PARTICLES 1 cap by mouth daily CYMBALTA 30 MG ORAL CAPSULE DELAYED RELE ASE PARTICLES 025853 DULOXETINE HCL Inactive PREMARIN 0.625 MG ORAL TABLET TAKE 1 TAB BY MOUTH DAILY PREMARIN 0.625 MG ORAL TABLET ESTROGENS CONJUGATED Inactive CHERATUSSIN AC 100-10 MG/5ML ORAL SYRUP 1 tsp by mouth every 4 hours as needed for cough CHERATUSSIN AC 100-10 MG/5ML ORAL SYRUP 9 01372 GUAIFENESIN-CODEINE Inactive PROMETHAZINE-CODEINE 6.25-10 MG/5ML ORAL SYRUP 1 tsp b y mouth every 6 hours if needed for cough PROMETHAZINE-CODEINE 6.25-10 MG/5ML ORAL SYRUP 610109 PROMETHAZINE-CODEINE Inactive CHERATUSSIN AC 100-10 MG/5ML ORAL SYRUP 1 tsp by mouth every 4 hours as needed for cough CHERATUSSIN AC 100-10 MG/5ML ORAL SYRUP 9 14474 GUAIFENESIN-CODEINE Inactive FLUTICASONE PROPIONATE 50 MCG/ACT NASAL SUSPENSION 1 t o 2 sprays each nostril daily FLUTICASONE PROPIONATE 50 MCG/AC T NASAL SUSPENSION 9928050 FLUTICASONE PROPIONATE Inactive PREDNISONE 20 MG ORAL TABLET 3 tab PO qd x 2d, 2 tab P O qd x 2d, 1 tab PO qd x 2d, 1/2 tab PO qd x 2d PREDNISONE 20 MG ORAL TAB LET 168945 PREDNISONE Inactive LEVOFLOXACIN 500 MG ORAL TABLET 1 tab PO daily x 10 days LEVOFLOXACIN 500 MG ORAL TABLET 122701 LEVOFLOXACIN Inactive CYCLOBENZAPRINE HCL 10 MG ORAL TABLET 1 tablet by mouth BID prn had pain CYCLOBENZAPRINE HCL 10 MG ORAL TABLET 111793 CYCLOBENZAPRINE HCL Inactive ZOCOR 40 MG ORAL TABLET 1 tab by mouth daily 4 ZOCOR 40 MG ORAL TABLET 370943 SIMVASTATIN Inactive TUSSIONEX PENNKINETIC ER 10-8 MG/5ML [...] FLUTICASONE PROPIO EFE 50 MCG/ACT NASAL SUSPENSION 5163470 FLUTICASONE PROPIONATE Inactive TUSSIONEX PENNKINETIC ER 10-8 [...] three days PREDNISONE 20 MG ORAL TABLET 815625 PREDNIS ONE Inactive PROAIR HFA 108 (90 BASE) MCG/ACT INHALATION AEROSOL SO LUTION 2 puffs four times a day as needed PROAIR HFA 108 (90 B ASE) MCG/ACT INHALATION AEROSOL SOLUTION ALBUTEROL SULFATE Inactive ZITHROMAX Z-REYNA 250 MG ORAL TABLET 2 today, then 1 daily for 4 d ays ZITHROMAX Z-REYNA 250 MG ORAL TABLET 896711 AZITHROMYCIN Inactive CEFDINIR 300 MG ORAL CAPSULE by mouth twice a day 2010 CEFDINIR 300 MG ORAL CAPSULE 471002 CEFDINIR Inactive CEFDINIR 300 MG ORAL CAPSULE [...] 2-5 03/07/07 ZITHROMAX 250 MG ORAL TABLET 824495 AZITHROMYCIN [place] ctive CEFDINIR 300 MG ORAL CAPSULE by mouth twice a day 2011 CEFDINIR 300 MG ORAL CAPSULE 20020704 CEFDINIR Inactive PREDNISONE 20 MG ORAL TABLET 2 tabs daily for 3 days, 1 tab daily for 3 days, 1/2 tab daily for 2 days PREDNISONE 20 MG ORAL T ABLET 788793 PREDNISONE Inactive AVELOX 400 MG ORAL TABLET 1 tab by mouth daily AVELOX 400 MG ORAL TABLET 800603 MOXIFLOXACIN HCL Inactive AVELOX 400 MG ORAL TABLET 1 tab by mouth daily AVELOX 400 MG ORAL TABLET 804500 MOXIFLOXACIN HCL Inactive PREDNISONE 20 MG ORAL TABLET Take 3 tabs daily for 3 d ays, 2 tabs daily for 3 days, 1 tab daily for 3 days, 1/2 tab daily for 3 days 11/07 PREDNISONE 20 MG ORAL TABLET 936333 PREDNISONE Inactive LEVAQUIN 500 MG ORAL TABLET take one po QD LEVAQUIN 500 MG ORAL TABLET 931684 LEVOFLOXACIN Inactive AZITHROMYCIN 250 MG ORAL TABLET 2 po qd x 1 day, then 1 po q d x 4 days AZITHROMYCIN 250 MG ORAL TABLET 874709 AZITHROMY GIOVANNI Inactive MEDROL 4 MG ORAL TABLET THERAPY PACK 6 tabs on day 1, 5 tabs on day 2, 4 tabs on day 3, 3 tabs on day 4, 2 tabs on day 5, 1 tab on day 6 2013 MEDROL 4 MG ORAL TABLET THERAPY PACK 741823 METHYLPREDNISOLONE [place] ctive CHERATUSSIN AC 100-10 MG/5ML ORAL SYRUP 5ml po q6hr PRN Cough 20 13/04/14 CHERATUSSIN AC 100-10 MG/5ML ORAL SYRUP 059244 GUAIFENE SIN-CODEINE Inactive TRIAMCINOLONE ACETONIDE 0.1 % EXTERNAL CREAM apply three roger es daily prn rash TRIAMCINOLONE ACETONIDE 0.1 % EXTERNAL CREAM 101 4314 TRIAMCINOLONE ACETONIDE Inactive AZITHROMYCIN 250 MG ORAL TABLET 2 po qd x 1 day, then 1 po q d x 4 days AZITHROMYCIN 250 MG ORAL TABLET 400884 AZITHROMY GIOVANNI Inactive MEDROL 4 MG ORAL TABLET THERAPY PACK 6 pills x 1 day, then 5 pills x 1 day then 4 pills x 1 day, then 3 pills x 1 day, then 2 pills x 1 day, then 1 pill x 1 day, then stop MEDROL 4 MG ORAL TABLET THERAPY PACK 195519 METHYLPREDNISOLONE Inactive AMOXICILLIN 500 MG ORAL CAPSULE 1 tab by mouth 3 times daily x 10 days AMOXICILLIN 500 MG ORAL CAPSULE 113285 AMOXICILL IN Inactive AMOXICILLIN 500 MG ORAL CAPSULE 1 tab by mouth 3 times daily x 10 days AMOXICILLIN 500 MG ORAL CAPSULE 514761 AMOXICILL IN Inactive ZITHROMAX 250 MG ORAL TABLET 2 po today, then 1 po q days 2-5 20 12/08/14 ZITHROMAX 250 MG ORAL TABLET 023340 AZITHROMYCIN [place] ctive AUGMENTIN 875-125 MG ORAL TABLET 1 po BID x 10 days 20 13/01/20 AUGMENTIN 875-125 MG ORAL TABLET 563961 AMOXICILLIN-POT CLAVULANATE Inactive ZITHROMAX Z-REYNA 250 MG ORAL TABLET 2 today, then 1 daily for 4 d ays ZITHROMAX Z-REYNA 250 MG ORAL TABLET 957138 AZITHROMYCIN Inactive ZITHROMAX 250 MG ORAL TABLET 2 po today, then 1 po q days 2-5 20 14/03/21 ZITHROMAX 250 MG ORAL TABLET 643907 AZITHROMYCIN [place] ctive ZITHROMAX Z-REYNA 250 MG ORAL TABLET 2 today, then 1 daily for 4 d ays ZITHROMAX Z-REYNA 250 MG ORAL TABLET 742839 AZITHROMYCIN Inactive CEFDINIR 300 MG ORAL CAPSULE 1 po BID x 10 days 06/21 CEFDINIR 300 MG ORAL CAPSULE 20020704 CEFDINIR Inactive ZITHROMAX 250 MG ORAL TABLET 2 po today, then 1 po q days 2-5 20 13/08/10 ZITHROMAX 250 MG ORAL TABLET 792732 AZITHROMYCIN [place] ctive LEVAQUIN 500 MG ORAL TABLET 1 tablet by mouth daily 13/09/24 LEVAQUIN 500 MG ORAL TABLET 19971102 LEVOFLOXACIN Inactive SINGULAIR 10 MG ORAL TABLET 1 po qday for allergies 20 14/01/12 SINGULAIR 10 MG ORAL TABLET 20010504 MONTELUKAST SODIUM Inactive AMOXICILLIN 500 MG ORAL CAPSULE 2 po BID x 10 days 201 09/29/08 AMOXICILLIN 500 MG ORAL CAPSULE 664011 AMOXICILLIN Inactive PREDNISONE 20 MG ORAL TABLET 2 tabs daily for 3 days, 1 tab daily for 3 days, 1/2 tab daily for 2 days PREDNISONE 20 MG ORAL T ABLET 993260 PREDNISONE Inactive ZITHROMAX Z-REYNA 250 MG ORAL TABLET 2 today, then 1 daily for 4 d ays ZITHROMAX Z-REYNA 250 MG ORAL TABLET 155817 AZITHROMYCIN Inactive PREDNISONE 20 MG ORAL TABLET 2 tabs daily for 3 days, 1 tab daily for 3 days, 1/2 tab daily for 2 days PREDNISONE 20 MG ORAL T ABLET 758717 PREDNISONE Inactive ZITHROMAX 250 MG ORAL TABLET 2 po today, then 1 po q days 2-5 20 14/09/04 ZITHROMAX 250 MG ORAL TABLET 277947 AZITHROMYCIN Greer ctive AMOXICILLIN 500 MG ORAL CAPSULE 1 cap by mouth three times a day AMOXICILLIN 500 MG ORAL CAPSULE 274544 AMOXICILLIN Inactive TERBINAFINE HCL 250 MG ORAL TABLET 1 qDay for nail fungus 7 TERBINAFINE HCL 250 MG ORAL TABLET 960227 TERBINAFINE HCL Inact nael AUGMENTIN 875-125 MG ORAL TABLET 1 po BID x 10 days 16/03/22 AUGMENTIN 875-125 MG ORAL TABLET 317120 AMOXICILLIN-POT CLAVULANATE Inactive PREDNISONE 20 MG ORAL TABLET 2 po qd x 5 days PREDNISONE 20 MG ORAL TABLET 612441 PREDNISONE Inactive Vital Signs Date Name Value [...] - Chem istry sodium, serum 132 mmol/L 794-155 4761/07/12 potassium, serum 2.7 mmol/L 3.5-5.2 chloride, serum 93 mmol/L 98-107 carbon dioxide, venous blood 30.8 mmol/L 21.0-32 .0 blood glucose 107 mg/dL 65-110 calcium, serum 9.3 mg/dL 8.5-10.1 urea nitrogen, blood 12 mg/dL 7-18 creatinine, serum 1.00 mg/dL 0.60-1.30 blood glucose 108 mg/dL 65-110 calcium, serum 9.1 mg/dL 8.5-10.1 urea nitrogen, blood 11 mg/dL 7-18 creatinine, serum 0.81 mg/dL 0.60-1.30 sodium, serum 139 mmol/L 418-205 2187/03/19 potassium, serum 3.6 mmol/L 3.5-5.2 chloride, serum 100 mmol/L 98-107 carbon dioxide, venous blood 30.3 mmol/L 21.0-32 .0 blood glucose 101 mg/dL 65-110 calcium, serum 9.4 mg/dL 8.5-10.1 urea nitrogen, blood 10 mg/dL 7-18 creatinine, serum 0.96 mg/dL 0.60-1.30 carbon dioxide, venous blood 29.9 mmol/L 21.0-32 .0 chloride, serum 106 mmol/L 98-107 potassium, serum 4.2 mmol/L 3.5-5.2 sodium, serum 142 mmol/L 136-145 Lab Report: Rapid Strep - Lab Microbial identification kit, rapid strep method Negative Negative Encounters Code Encounter Date Provider Facility CPT-16797 Level 3 Est. Patient 11:34:49 PROOF TESTER Perez Mora MD [facility] CPT-13655 Level 4 Est. Patient 09:51:32 PROOF TESTER Carlton rich MD [facility] CPT-55778 Level 3 Est. Patient 10:26:00 PROOF TESTER Elise stephenson [facility] CPT-43102 Level 3 Est. Patient 13:35:41 PROOF TESTER Carlton rich MD [facility] CPT-27209 Level 3 Est. Patient 10:03:52 PROOF TESTER Carlton rich MD [facility] CPT-99520 Level 3 Est. Patient 12:17:50 CDT Hugo Restrepo MD [facility] CPT-11847 Level 3 Est. Patient 13:42:38 CDT Elise stephenson [facility] CPT-19502 Level 3 Est. Patient 13:23:51 CDT Diya cobian [facility]-28068 Level 3 Est. Patient 14:22:19 PROOF TESTER Diya cobian [facility] CPT-94777 Level 3 Est. Patient 10:11:46 CDT Carlton rich MD [facility] CPT-62221 Level 3 Est. Patient 17:29:43 CDT Elise Are ll ASSISTANT PROGRAM MANAGER [facility] CPT-82013 Level 3 Est. Patient 11:58:06 CDT Elise Are ll ASSISTANT PROGRAM MANAGER [facility] CPT-49983 Level 4 Est. Patient 14:36:51 CDT Carlton rich MD [facility] CPT-64003 Level 3 Est. Patient 18:16:00 PROOF TESTER Blaine Freeman [facility] CPT-94110 Level 3 Est. Patient 09:45:49 PROOF TESTER Carlton rich MD [facility] CPT-92482 Level 3 Est. Patient 13:19:20 CDT Carlton rich MD [facility] CPT-56180 Level 3 Est. Patient 13:06:43 CDT Ridge tam DO [facility] CPT-30148 Level 3 Est. Patient 10:03:07 CDT Perez Mora MD [facility] CPT-56879 Level 3 Est. Patient 19:50:35 PROOF TESTER Carlton rich MD [facility] CPT-20553 Level 4 Est. Patient 18:05:01 PROOF TESTER Carlton rich MD [facility] CPT-25694 Level 3 Est. Patient 10:45:55 PROOF TESTER Hugo Restrepo MD [facility] CPT-06494 Level 3 Est. Patient 14:12:49 CDT Griffin lincoln [facility] CPT-41053 Level 3 Est. Patient 17:37:24 CDT Carlton rich MD [facility] CPT-29439 Level 3 Est. Patient 16:51:54 CDT Carlton rich MD [facility] CPT-76665 Level 3 Est. Patient 12:18:11 CDT Hugo Restrepo MD [facility] CPT-57154 Level 3 Est. Patient 11:30:25 CDT Marcy crisostomo MD PhD [facility] CPT-51477 Level 3 Est. Patient 12:00:47 PROOF TESTER Carlton rich MD [facility] CPT-22290 Level 3 Est. Patient 16:31:06 PROOF TESTER Carlton rich MD [facility] CPT-11009 Level 3 Est. Patient 16:23:24 PROOF TESTER Ridge tam [facility] CPT-85257 Level 3 Est. Patient 12:34:12 CDT Carlton rich MD [facility] CPT-67003 Level 2 Est. Patient 15:43:33 CDT Robi armstrong MD [facility] CPT-58286 Level 4 Est. Patient 14:04:44 CDT Carlton rich MD [facility] CPT-16850 Level 3 Est. Patient 05:47:59 CDT Ridge tam [facility] CPT-47090 Level 3 Est. Patient 13:12:53 PROOF TESTER Carlton rich MD [facility] CPT-89830 Level 3 Est. Patient 14:26:53 CDT Hugo Restrepo MD [facility] Procedures Code Procedure Name Date Entry Date Standard Desc ription CPT-J1040 Depo Medrol 80 mg (Methyl Prednisolone A cetate) 10:42:44 CDT CPT-J1100 Decadron 8mg (Dexamethasone) 10:42:44 CDT 2 CPT-J0696 Rocephin 1gm Inj Solr 14:32:13 CDT CPT-J1020 Depo Medrol 60 mg (Methyl Prednisolone A cetate) 14:32:13 CDT CPT-J1100 Decadron 6mg (Dexamethasone) 14:32:13 CDT 2 CPT-00079 Hip bilat min 2V w AP pelvis 13:16:20 CDT 2 CPT-98295 Pelvis only 13:07:33 CDT CPT-56905 Spec Collection and Handling Fee 11:25:12 C DT CPT-37765 Fluzone Quadrivalent Intramuscular Suspe nsion 0.5 ML 14:31:55 CDT CPT-24653 Abx/Therapy Injection 13:28:47 PROOF TESTER CPT-J2930 Solu Medrol 125 mg (Methyl Prednisolone Sodium Succinate) 12:00:47 PROOF TESTER CPT-66059 Venipuncture Draw Fee 11:33:31 CDT CPT-75062 EKG Trac and Interp 11:21:09 CDT CPT-40209 Chest 2V Frontal and Lat 11:21:09 CDT 12/15 CPT-02348 Venipuncture Draw Fee 08:02:34 CDT CPT-95895 Chest 2V Frontal and Lat 05:47:59 CDT 06/05
--- OUTSIDE RECORDS SUMMARY | 2019-10-08 08:26 | XMS REPORT | Clinical Summary ---
Author Author Caitlin, Juliana Martinez Organization [facility] Address Unknown Phone Unavailable Allergies, Adverse [...] times daily for 7 days POTASSIUM CHLORIDE 11062132051 Active Columba Raida Active TUSSIONEX PENNKINETIC ER 10-8 MG/5ML LQCR 5ml po q12hr PRN Cough 20 14/09/04 HYDROCOD POLST-CHLORPHEN POLST 15835471488 Active Elise Whitmore APRN Active ZITHROMAX 250 MG TAB 2 po today, then 1 po q days 2-5 AZITHROMYCIN 21413428405 No Longer Active Elise Whitmore APRN Acti ve TUSSIONEX PENNKINETIC ER 10-8 MG/5ML LQCR 5 ml twice a day a s needed for cough HYDROCOD POLST-CHLORPHEN POLST 94341550115 N o Longer Active Elise Whitmore APRN Active MONTELUKAST SODIUM 10 MG ORAL TABS 1 po daily for Allergy 6 MONTELUKAST SODIUM 30315956796 Active Carlton Hu MD Ac tive TUSSIONEX PENNKINETIC ER 10-8 MG/5ML LQCR 5ml po q12hr PRN Cough HYDROCOD POLST-CHLORPHEN POLST 10713531664 No Longer Active Hugo Restrepo MD Active GABAPENTIN 100 MG CAPS 1 po BID for fibromyalgia GABAPENTIN 81874066643 Active Elise Whitmore APRN Active LYRICA 100 MG CAPS Take 1 tab po BID for fibromyalgia PREGABALIN 79367823450 No Longer Active Elise Whitmore APRN Acti ve PROAIR HFA 108 (90 BASE) MCG/ACT AERS 2 puffs four times a d ay as needed ALBUTEROL SULFATE 42844184697 Active Elise Whitmore APRN Active MUCINEX DM MAXIMUM STRENGTH 60-1200 MG [id number] 1 tab po q am 2016 DEXTROMETHORPHAN-GUAIFENESIN 73277501492 Active Jillina Frazell BUSINESS SERVICES COORDINATOR Active PREDNISONE 20 MG TAB 2 tabs daily for 3 days, 1 t ab daily for 3 days, 1/2 tab daily for 2 days PREDNISONE 20792441923 No Longer Active Jillina Frazell BUSINESS SERVICES COORDINATOR Active TUSSIONEX PENNKINETIC ER 10-8 MG/5ML ORAL LQCR 5 mL PO q 12 hrs PRN cough HYDROCOD POLST-CHLORPHEN POLST 82705496187 No Longer Active Jillina Frazell BUSINESS SERVICES COORDINATOR Active FLUTICASONE PROPIONATE 50 MCG/ACT SUSP 2 sprays each n ostril daily until bottle is empty FLUTICASONE PROPIONATE 64248317761 No Longer Ac tive Jillina Frazell BUSINESS SERVICES COORDINATOR Active ASMANEX 60 METERED DOSES 220 MCG/INH AEPB 1 puff bid with ri nse after MOMETASONE FUROATE 98670082056 No Longer Active Diya meneses BUSINESS SERVICES COORDINATOR Active ZITHROMAX Z-REYNA 250 MG TABS 2 today, then 1 daily for 4 days 201 09/29/14 AZITHROMYCIN 32834113550 No Longer Active Elise Whitmore BUSINESS SERVICES COORDINATOR Active TUSSIONEX PENNKINETIC ER 10-8 MG/5ML LQCR 5ml po q12hr PRN Cough HYDROCOD POLST-CHLORPHEN POLST 83398440411 No Longer Active Elise Whitmore BUSINESS SERVICES COORDINATOR Active MUCINEX D 60-600 MG [id number] 1 tab po q am PSEUDOEPHEDRINE-GUAIFENESIN 53803816460 Active Diya De Guzman BUSINESS SERVICES COORDINATOR Active PREDNISONE 20 MG TAB 2 tabs daily for 3 days, 1 t ab daily for 3 days, 1/2 tab daily for 2 days PREDNISONE 44960257907 No Longer Active Diya De Guzman BUSINESS SERVICES COORDINATOR Active AMOXICILLIN 500 MG CAPS 2 po BID x 10 days AMOX ICILLIN 99071569793 No Longer Active Diya De Guzman BUSINESS SERVICES COORDINATOR Active SINGULAIR 10 MG TABS 1 po qday for allergies 2 MONTELUKAST SODIUM 46041507867 No Longer Active Carlton Hu MD Acti ve LEVAQUIN 500 MG TAB 1 tablet by mouth daily LEV OFLOXACIN 43620748363 No Longer Active Carlton Hu MD Active FLUTICASONE PROPIONATE 50 MCG/ACT SUSP 2 sprays each n ostril daily for 2 weeks, then 1 spray each nostril daily. FLUTICASONE PRO PIONATE 99185701626 Active Elise Whitmore APRN Active ZITHROMAX 250 MG TAB 2 po today, then 1 po q days 2-5 AZITHROMYCIN 86928534461 No Longer Active Elise Whitmore APRN Acti ve XANAX 0.5 MG TABS one tablet by mouth daily prn anxiety ALPRAZOLAM 82638060756 Active Elise Whitmore APRN Active CYMBALTA 30 MG CPEP 1 cap by mouth daily for depression DULOXETINE HCL 89577836751 Active Carlton Hu MD Active CEFDINIR 300 MG CAPS 1 po BID x 10 days CEFDINI R 69407262963 No Longer Active Carlton Hu MD Active ZOCOR 40 MG TAB 1 tab by mouth daily SIMVASTATI N 51920611919 No Longer Active Carlton Hu MD Active CYCLOBENZAPRINE HCL 10 MG TABS 1 tablet by mouth BID prn had cherelle n CYCLOBENZAPRINE HCL 07282473761 No Longer Active Carlton Hu MD Active LEVOFLOXACIN 500 MG ORAL TABS 1 tab PO daily x 10 days LEVOFLOXACIN 12856457824 No Longer Active Carlton Hu MD Acti ve PREDNISONE 20 MG ORAL TABS 3 tab PO qd x 2d, 2 tab PO qd x 2d, 1 tab PO qd x 2d, 1/2 tab PO qd x 2d PREDNISONE 38704142933 No Longer Active Carlton Hu MD Active FLUTICASONE PROPIONATE 50 MCG/ACT SUSP 1 to 2 sprays each no stril daily FLUTICASONE PROPIONATE 73089140620 No Longer Active T jaz HERNANDEZ Active CHERATUSSIN AC 100-10 MG/5ML SYRP 1 tsp by mouth every 4 hours as needed for cough GUAIFENESIN-CODEINE 50967507855 No Longer Activ e Blaine HERNANDEZ Active PROMETHAZINE-CODEINE 6.25-10 MG/5ML SYRP 1 tsp by mout h every 6 hours if needed for cough PROMETHAZINE-CODEINE 85267116192 No Long er Active Blaine HERNANDEZ Active CHERATUSSIN AC 100-10 MG/5ML SYRP 1 tsp by mouth every 4 hours as needed for cough GUAIFENESIN-CODEINE 05593050576 No Longer Activ e Blaine HERNANDEZ Active ZITHROMAX Z-REYNA 250 MG TABS 2 today, then 1 daily for 4 days 201 08/30/03 AZITHROMYCIN 02108289100 No Longer Active Columba Raida Act nael ZITHROMAX 250 MG TAB 2 po today, then 1 po q days 2-5 AZITHROMYCIN 19414943172 No Longer Active Carlton Hu MD Acti ve ZITHROMAX Z-REYNA 250 MG TABS 2 today, then 1 daily for 4 days 201 08/07/20 AZITHROMYCIN 50344521077 No Longer Active Columba Raida Act nael AUGMENTIN 875-125 MG TAB 1 po BID x 10 days AMOXICILLIN- POT CLAVULANATE 95076890492 No Longer Active Jillshakira Sernazell BUSINESS SERVICES COORDINATOR Active ZITHROMAX 250 MG TAB 2 po today, then 1 po q days 2-5 AZITHROMYCIN 81925637555 No Longer Active Carlton Hu MD Acti ve TRAMADOL HCL 50 MG TABS 1 po tid with ES Tylenol TRAMADOL HCL 21865224812 Active Carlton Hu MD Active PREMARIN 0.625 MG TABS TAKE 1 TAB BY MOUTH DAILY 07/25 ESTROGENS CONJUGATED 74109836447 No Longer Active Ridge Bess DO Active CYMBALTA 30 MG CPEP 1 cap by mouth daily DULOXE SNEHA HCL 63993641846 No Longer Active Ridge Bess DO Active AMOXICILLIN 500 MG CAP 1 tab by mouth 3 times daily x 10 days 20 14/04/28 AMOXICILLIN 90640942273 No Longer Active Carlton Hu MD Active AMOXICILLIN 500 MG CAP 1 tab by mouth 3 times daily x 10 days 20 13/03/08 AMOXICILLIN 59337314286 No Longer Active Carlton Hu MD Active PROMETHAZINE-CODEINE 6.25-10 MG/5ML SYRP 1 tsp by mouth ever y 8 hours prn cough PROMETHAZINE-CODEINE 33824284327 No Longer Active Robert Hu MD Active MEDROL (REYNA) 4 MG TABS 6 pills x 1 day, then 5 pill s x 1 day then 4 pills x 1 day, then 3 pills x 1 day, then 2 pills x 1 day, then 1 pill x 1 day, then stop METHYLPREDNISOLONE 64084594482 No Longer Active Parris Mora MD Active AZITHROMYCIN 250 MG TABS 2 po qd x 1 day, then 1 po qd x 4 days AZITHROMYCIN 90509823164 No Longer Active Perez Mora MD Active SYMBICORT 160-4.5 MCG/ACT AERO 2 puffs bid with rinse after 2011 BUDESONIDE-FORMOTEROL FUMARATE 73032952012 No Longer Active Perez Mora MD Active LYRICA 75 MG CAPS TAKE 1 CAPSULE BY MOUTH TWICE DAILY 2013 PREGABALIN 96712579119 No Longer Active Carlton Hu MD Active TOPAMAX 25 MG TABS 1 qHS x 1 week, then 1 BID x 1 week, then 1 qAM and 2 qHS x 1 week, then 2 BID (migraine prevention) TOPIRAMAT E 05100526388 No Longer Active Jerica FUENTES Active TOPAMAX 50 MG TABS take 1 tab po BID for migraines. 12/07/10 TOPIRAMATE 81418187623 No Longer Active Jerica FUENTES Ac tive TOPAMAX 100 MG TABS Take 1 tablet po bid TOPIRAMATE 4999 0876400 Active Elise Whitmore BUSINESS SERVICES COORDINATOR Active TRIAMCINOLONE ACETONIDE 0.1 % CREA apply three times daily prn r beatrice TRIAMCINOLONE ACETONIDE 59453973112 No Longer Active Carlton Hu MD Active PAXIL 40 MG TAB take 1 tab po qday for depression PAROXETINE HCL 73915450784 Active Carlton Hu MD Active CHERATUSSIN AC 100-10 MG/5ML SYRP 5ml po q6hr PRN Cough GUAIFENESIN-CODEINE 65705463057 No Longer Active Carlton Hu MD Active MEDROL (REYNA) 4 MG TABS 6 tabs on day 1, 5 tabs on d ay 2, 4 tabs on day 3, 3 tabs on day 4, 2 tabs on day 5, 1 tab on day 6 METHYLPREDNISOLONE 39265151010 No Longer Active Perez Mora MD Active AZITHROMYCIN 250 MG TABS 2 po qd x 1 day, then 1 po qd x 4 days AZITHROMYCIN 31838367512 No Longer Active Perez Mora MD Active PROPRANOLOL HCL 60 MG TABS 1 PO Q D PROPRANOL OL HCL 74988589547 No Longer Active Perez Mora MD Active CHERATUSSIN AC 100-10 MG/5ML SYRP take one tsp po Q 6hours prn c ough GUAIFENESIN-CODEINE 86143636468 No Longer Active Perez Means Active AUGMENTIN 875-125 MG TAB 1 tab by mouth twice daily with food 20 12/03/31 AMOXICILLIN-POT CLAVULANATE 82426504867 No Longer Active Chanel Mora MD Active CHERATUSSIN AC 100-10 MG/5ML SYRP 1 tsp by mouth every 4 hours as needed for cough GUAIFENESIN-CODEINE 48188135662 No Longer Activ e Hugo Restrepo MD Active ACETAMINOPHEN-CODEINE #3 300-30 MG TABS 1 PO Q 4-6 HRS PRN PAIN ACETAMINOPHEN-CODEINE 65891454400 No Longer Active Hugo Restrepo MD Active LEVAQUIN 500 MG TABS take one po QD LEVOFLOXACI N 90381417964 No Longer Active Griffin HERNANDEZ Active PREDNISONE 20 MG TAB Take 3 tabs daily for 3 days , 2 tabs daily for 3 days, 1 tab daily for 3 days, 1/2 tab daily for 3 days P REDNISONE 59437843091 No Longer Active Carlton Hu MD Active AVELOX 400 MG TABS 1 tab by mouth daily MOXIFLO XACIN HCL 05832125526 No Longer Active Carlton Hu MD Active CHERATUSSIN AC 100-10 MG/5ML SYRP 1 tsp by mouth every 4 hours as needed for cough GUAIFENESIN-CODEINE 65734022659 No Longer Activ e Hugo Restrepo MD Active AVELOX 400 MG TABS 1 tab by mouth daily MOXIFLO XACIN HCL 68433327790 No Longer Active Marcy De La Rosa MD PhD Active TERBINAFINE HCL 250 MG TABS 1 qDay TERBINAF INE HCL 34287010542 No Longer Active Marcy De La Rosa MD PhD Active CHERATUSSIN AC 100-10 MG/5ML SYRP 1 tsp by mouth every 4 hours as needed for cough GUAIFENESIN-CODEINE 52779787272 No Longer Activ e Marcy De La Rosa MD PhD Active AVELOX 400 MG TABS 1 tab by mouth daily MOXIFLO XACIN HCL 90087293111 No Longer Active Marcy De La Rosa MD PhD Active HYDROCODONE-ACETAMINOPHEN 5-325 MG TABS 1 po q 6hr PRN cough 201 05/09/16 HYDROCODONE-ACETAMINOPHEN 63479661658 No Longer Active Marcy De La Rosa MD PhD Active PREDNISONE 20 MG TAB 2 tabs daily for 3 days, 1 t ab daily for 3 days, 1/2 tab daily for 2 days PREDNISONE 31485903682 No Longer Active Carlton Hu MD Active CEFDINIR 300 MG CAPS by mouth twice a day CEFDI ODILIA 37761146950 No Longer Active Carlton Hu MD Active HYDROCHLOROTHIAZIDE 25 MG TABS 1 TAB PO DAILY H YDROCHLOROTHIAZIDE 39864329805 Active Carlton Hu MD Active ACETAMINOPHEN-CODEINE #3 300-30 MG TABS 1 tablet po q 4-6hrs prn pain ACETAMINOPHEN-CODEINE 25645168047 No Longer Active Ridge Bess DO Active ZITHROMAX 250 MG TAB 2 po today, then 1 po q days 2-5 AZITHROMYCIN 84340786652 No Longer Active Carlton Hu MD Acti ve CHERATUSSIN AC 100-10 MG/5ML SYRP take 1 tsp po q4-6 hours prn c ough GUAIFENESIN-CODEINE 52850958810 No Longer Active Carlton Hu MD Active ACETAMINOPHEN-CODEINE #3 300-30 MG TABS 1 PO Q 4-6 HR PRN PAIN 2 ACETAMINOPHEN-CODEINE 33236752521 No Longer Active Carlton rich MD Active LORTAB 7.5-500 MG/15ML ELIX 7.5 ml po q 4 hour prn cough HYDROCODONE-ACETAMINOPHEN 81313203973 No Longer Active Carlton Hu MD Active PREDNISONE 20 MG TAB 1 po bid 3 days, then 1 po q day 3 days 201 05/03/07 PREDNISONE 96662584768 No Longer Active Carlton Hu MD Active ELMIRON 100 MG CAPS 2 tablets in the am and 1 tablet at hs PENTOSAN POLYSULFATE SODIUM 23636319107 Active Carlton Hu MD Ac tive CEFDINIR 300 MG CAPS by mouth twice a day CEFDI ODILIA 23567598355 No Longer Active Carlton Hu MD Active CEFDINIR 300 MG CAPS by mouth twice a day CEFDI ODILIA 93029399428 No Longer Active Carlton Hu MD Active CEFDINIR 300 MG CAPS by mouth twice a day CEFDI ODILIA 79792836115 No Longer Active Carlton Hu MD Active TESSALON PERLES 100 MG CAP 1 tablet by mouth 3 times daily a s needed for cough BENZONATATE 49522067433 No Longer Active Carlton bustamante MD Active CEFDINIR 300 MG CAPS by mouth twice a day CEFDI ODILIA 96415047743 No Longer Active Carlton Hu MD Active ZITHROMAX Z-REYNA 250 MG TABS 2 today, then 1 daily for 4 days 201 04/09/17 AZITHROMYCIN 58959198238 No Longer Active Hugo Restrepo MD Active TESSALON PERLES 100 MG CAP 1 tablet by mouth 3 times daily a s needed for cough TESSALON PERLES 100 MG CAP 608589 BENZONATATE I nactive PREDNISONE 20 MG TAB 1 po bid 3 days, then 1 po q day 3 days 201 05/03/07 PREDNISONE 20 MG TAB 421255 PREDNISONE Inactive LORTAB 7.5-500 MG/15ML ELIX 7.5 ml po q 4 hour prn cough LORTAB 7.5-500 MG/15ML ELIX HYDROCODONE-ACETAMINOPHEN Inacti ve ACETAMINOPHEN-CODEINE #3 300-30 MG TABS 1 PO Q 4-6 HR PRN PAIN 2 ACETAMINOPHEN-CODEINE #3 300-30 MG TABS ACETAMIN OPHEN-CODEINE Inactive CHERATUSSIN AC 100-10 MG/5ML SYRP take 1 tsp po q4-6 hours prn c ough CHERATUSSIN AC 100-10 MG/5ML SYRP 399697 GUAIFENESIN-CO DEINE Inactive ACETAMINOPHEN-CODEINE #3 300-30 MG TABS 1 tablet po q 4-6hrs prn pain ACETAMINOPHEN-CODEINE #3 300-30 MG TABS ACETAMIN OPHEN-CODEINE Inactive HYDROCODONE-ACETAMINOPHEN 5-325 MG TABS 1 po q 6hr PRN cough 201 05/09/16 HYDROCODONE-ACETAMINOPHEN 5-325 MG TABS 099437 HYDROCODONE-ACETAMINOPHEN Inactive AVELOX 400 MG TABS 1 tab by mouth daily A VELOX 400 MG TABS 834442 MOXIFLOXACIN HCL Inactive CHERATUSSIN AC 100-10 MG/5ML SYRP 1 tsp by mouth every 4 hours as needed for cough CHERATUSSIN AC 100-10 MG/5ML SYRP 140081 GUAIFENESIN-CODEINE Inactive TERBINAFINE HCL 250 MG TABS 1 qDay TERBINAFINE HCL 250 MG TABS 054352 TERBINAFINE HCL Inactive CHERATUSSIN AC 100-10 MG/5ML SYRP 1 tsp by mouth every 4 hours as needed for cough CHERATUSSIN AC 100-10 MG/5ML SYRP 020470 GUAIFENESIN-CODEINE Inactive ACETAMINOPHEN-CODEINE #3 300-30 MG TABS 1 PO Q 4-6 HRS PRN PAIN ACETAMINOPHEN-CODEINE #3 300-30 MG TABS ACETAMINOPHEN-CODEIN E Inactive CHERATUSSIN AC 100-10 MG/5ML SYRP 1 tsp by mouth every 4 hours as needed for cough CHERATUSSIN AC 100-10 MG/5ML SYRP 201148 GUAIFENESIN-CODEINE Inactive AUGMENTIN 875-125 MG TAB 1 tab by mouth twice daily with food 20 12/03/31 AUGMENTIN 875-125 MG TAB 792114 AMOXICILLIN-POT CLAVULA EFE Inactive CHERATUSSIN AC 100-10 MG/5ML SYRP take one tsp po Q 6hours prn c ough CHERATUSSIN AC 100-10 MG/5ML SYRP 313297 GUAIFENESIN-CO DEINE Inactive PROPRANOLOL HCL 60 MG TABS 1 PO Q D P ROPRANOLOL HCL 60 MG TABS 746673 PROPRANOLOL HCL Inactive TOPAMAX 50 MG TABS take 1 tab po BID for migraines. 12/07/10 TOPAMAX 50 MG TABS 536851 TOPIRAMATE Inactive TOPAMAX 25 MG TABS 1 qHS x 1 week, then 1 BID x 1 week, then 1 qAM and 2 qHS x 1 week, then 2 BID (migraine prevention) TOPAMAX 2 5 MG TABS 137846 TOPIRAMATE Inactive LYRICA 75 MG CAPS TAKE 1 CAPSULE BY MOUTH TWICE DAILY LYRICA 75 MG CAPS PREGABALIN Inactive SYMBICORT 160-4.5 MCG/ACT AERO 2 puffs bid with rinse after 2011 SYMBICORT 160-4.5 MCG/ACT AERO BUDESONIDE-FORMOT SÁNCHEZ FUMARATE Inactive PROMETHAZINE-CODEINE 6.25-10 MG/5ML SYRP 1 tsp by mouth ever y 8 hours prn cough PROMETHAZINE-CODEINE 6.25-10 MG/5ML SYRP 258265 PROMETHAZINE-CODEINE Inactive CYMBALTA 30 MG CPEP 1 cap by mouth daily CYMBALTA 30 MG CPEP 385935 DULOXETINE HCL Inactive PREMARIN 0.625 MG TABS TAKE 1 TAB BY MOUTH DAILY 07/25 PREMARIN 0.625 MG TABS ESTROGENS CONJUGATED Inactive CHERATUSSIN AC 100-10 MG/5ML SYRP 1 tsp by mouth every 4 hours as needed for cough CHERATUSSIN AC 100-10 MG/5ML SYRP 079341 GUAIFENESIN-CODEINE Inactive PROMETHAZINE-CODEINE 6.25-10 MG/5ML SYRP 1 tsp by mout h every 6 hours if needed for cough PROMETHAZINE-CODEINE 6.25-10 MG/5ML SYRP 339958 PROMETHAZINE-CODEINE Inactive CHERATUSSIN AC 100-10 MG/5ML SYRP 1 tsp by mouth every 4 hours as needed for cough CHERATUSSIN AC 100-10 MG/5ML SYRP 513939 GUAIFENESIN-CODEINE Inactive FLUTICASONE PROPIONATE 50 MCG/ACT SUSP 1 to 2 sprays each no stril daily FLUTICASONE PROPIONATE 50 MCG/ACT SUSP 9580388 FLUTICASONE PROPIONATE Inactive PREDNISONE 20 MG ORAL TABS 3 tab PO qd x 2d, 2 tab PO qd x 2d, 1 tab PO qd x 2d, 1/2 tab PO qd x 2d PREDNISONE 20 MG ORAL TABS 408209 PREDNISONE Inactive LEVOFLOXACIN 500 MG ORAL TABS 1 tab PO daily x 10 days LEVOFLOXACIN 500 MG ORAL TABS 408839 LEVOFLOXACIN Inactive CYCLOBENZAPRINE HCL 10 MG TABS 1 tablet by mouth BID prn had cherelle n CYCLOBENZAPRINE HCL 10 MG TABS 153733 CYCLOBENZAPRINE H CL Inactive ZOCOR 40 MG TAB 1 tab by mouth daily ZOCOR 40 M G TAB 023084 SIMVASTATIN Inactive TUSSIONEX PENNKINETIC ER 10-8 MG/5ML [...] empty FLUTICASONE PROPIONATE 50 MCG/ACT SUSP 17 72134 FLUTICASONE PROPIONATE Inactive TUSSIONEX PENNKINETIC ER 10-8 [...] 201 04/09/17 ZITHROMAX Z-REYNA 250 MG TABS 3257284 AZITHROMYCIN Inac tive CEFDINIR 300 MG CAPS [...] q days 2-5 ZITHROMAX 250 MG TAB 1335426 AZITHROMYCIN Inactive CEFDINIR 300 MG CAPS by mouth twice a day CEFDINIR 300 MG CAPS 20020704 CEFDINIR Inactive PREDNISONE 20 MG TAB 2 tabs daily for 3 days, 1 t ab daily for 3 days, 1/2 tab daily for 2 days PREDNISONE 20 MG TAB 069144 PREDNISON E Inactive AVELOX 400 MG TABS 1 tab by mouth daily A VELOX 400 MG TABS 139339 MOXIFLOXACIN HCL Inactive AVELOX 400 MG TABS 1 tab by mouth daily A VELOX 400 MG TABS 760151 MOXIFLOXACIN HCL Inactive PREDNISONE 20 MG TAB Take 3 tabs daily for 3 days , 2 tabs daily for 3 days, 1 tab daily for 3 days, 1/2 tab daily for 3 days PREDNISONE 20 MG TAB 564428 PREDNISONE Inactive LEVAQUIN 500 MG TABS take one po QD LEVAQUIN 50 0 MG TABS 979352 LEVOFLOXACIN Inactive AZITHROMYCIN 250 MG TABS 2 po qd x 1 day, then 1 po qd x 4 days AZITHROMYCIN 250 MG TABS 6879747 AZITHROMYCIN Inactiv e MEDROL (REYNA) 4 MG TABS 6 tabs on day 1, 5 tabs on d ay 2, 4 tabs on day 3, 3 tabs on day 4, 2 tabs on day 5, 1 tab on day 6 MEDROL (REYNA) 4 MG TABS 459505 METHYLPREDNISOLONE Inactive CHERATUSSIN AC 100-10 MG/5ML SYRP 5ml po q6hr PRN Cough CHERATUSSIN AC 100-10 MG/5ML SYRP 772234 GUAIFENESIN-CODEINE Inacti ve TRIAMCINOLONE ACETONIDE 0.1 % CREA apply three times daily prn r beatrice TRIAMCINOLONE ACETONIDE 0.1 % CREA 3861711 TRIAMCINOLONE ACETONIDE Inactive AZITHROMYCIN 250 MG TABS 2 po qd x 1 day, then 1 po qd x 4 days AZITHROMYCIN 250 MG TABS 7908285 AZITHROMYCIN Inactiv e MEDROL (REYNA) 4 MG TABS 6 pills x 1 day, then 5 pill s x 1 day then 4 pills x 1 day, then 3 pills x 1 day, then 2 pills x 1 day, then 1 pill x 1 day, then stop MEDROL (REYNA) 4 MG TABS 705141 METHYLPREDNISOLONE Inactive AMOXICILLIN 500 MG CAP 1 tab by mouth 3 times daily x 10 days 20 13/03/08 AMOXICILLIN 500 MG CAP 528576 AMOXICILLIN Inactive AMOXICILLIN 500 MG CAP 1 tab by mouth 3 times daily x 10 days 20 14/04/28 AMOXICILLIN 500 MG CAP 258492 AMOXICILLIN Inactive ZITHROMAX 250 MG TAB 2 po today, then 1 po q days 2-5 ZITHROMAX 250 MG TAB 3015976 AZITHROMYCIN Inactive AUGMENTIN 875-125 MG TAB 1 po BID x 10 days AUGMENTIN 875- 125 MG TAB 253496 AMOXICILLIN-POT CLAVULANATE Inactive ZITHROMAX Z-REYNA 250 MG TABS 2 today, then 1 daily for 4 days 201 08/07/20 ZITHROMAX Z-REYNA 250 MG TABS 1882382 AZITHROMYCIN Inac tive ZITHROMAX 250 MG TAB 2 po today, then 1 po q days 2-5 ZITHROMAX 250 MG TAB 4203695 AZITHROMYCIN Inactive ZITHROMAX Z-REYNA 250 MG TABS 2 today, then 1 daily for 4 days 201 08/30/03 ZITHROMAX Z-REYNA 250 MG TABS 4298892 AZITHROMYCIN Inac tive CEFDINIR 300 MG CAPS 1 po BID x 10 days C EFDINIR 300 MG CAPS 20020704 CEFDINIR Inactive ZITHROMAX 250 MG TAB 2 po today, then 1 po q days 2-5 ZITHROMAX 250 MG TAB 9517896 AZITHROMYCIN Inactive LEVAQUIN 500 MG TAB 1 tablet by mouth daily LEVAQUIN 500 MG TAB 899165 LEVOFLOXACIN Inactive SINGULAIR 10 MG TABS 1 po qday for allergies 2 SINGULAIR 10 MG TABS 135556 MONTELUKAST SODIUM Inactive AMOXICILLIN 500 MG CAPS 2 po BID x 10 days AMOXICILLIN 500 MG CAPS 643886 AMOXICILLIN Inactive PREDNISONE 20 MG TAB 2 tabs daily for 3 days, 1 t ab daily for 3 days, 1/2 tab daily for 2 days PREDNISONE 20 MG TAB 047583 PREDNISON E Inactive ZITHROMAX Z-REYNA 250 MG TABS 2 today, then 1 daily for 4 days 201 09/29/14 ZITHROMAX Z-REYNA 250 MG TABS 2512383 AZITHROMYCIN Inac tive PREDNISONE 20 MG TAB 2 tabs daily for 3 days, 1 t ab daily for 3 days, 1/2 tab daily for 2 days PREDNISONE 20 MG TAB 480480 PREDNISON E Inactive ZITHROMAX 250 MG TAB 2 po today, then 1 po q days 2-5 ZITHROMAX 250 MG TAB 4465522 AZITHROMYCIN Inactive Vital Signs Date Name Value [...] - Chem istry sodium, serum 132 mmol/L 331-483 6818/07/12 potassium, serum 2.7 mmol/L 3.5-5.2 chloride, serum 93 mmol/L 98-107 carbon dioxide, venous blood 30.8 mmol/L 21.0-32 .0 blood glucose 107 mg/dL 65-110 calcium, serum 9.3 mg/dL 8.5-10.1 urea nitrogen, blood 12 mg/dL 7-18 creatinine, serum 1.00 mg/dL 0.60-1.30 Lab Report: Rapid Strep - Lab Microbial identification kit, rapid strep method Negative Negative Encounters Code Encounter Date Provider Facility CPT-78465 Level 3 Est. Patient 12:17:50 CDT Hugo Restrepo MD [facility] CPT-48980 Level 3 Est. Patient 13:42:38 CDT Elise Guerrero [facility] CPT-73067 Level 3 Est. Patient 13:23:51 CDT Diya cobian [facility][note 3] CPT-85594 Level 3 Est. Patient 14:22:19 GAME DEVELOPER Diya cobian [facility][note 3] CPT-45596 Level 3 Est. Patient 10:11:46 CDT Carlton rich MD [facility] CPT-39076 Level 3 Est. Patient 17:29:43 CDT Italo [facility][note 3] CPT-37909 Level 3 Est. Patient 11:58:06 CDT Italo [facility][note 3] CPT-90406 Level 4 Est. Patient 14:36:51 CDT Carlton rich MD [facility]-44416 Level 3 Est. Patient 18:16:00 GAME DEVELOPER Blaine Freeman [facility] CPT-27997 Level 3 Est. Patient 09:45:49 GAME DEVELOPER Carlton rich MD [facility]-48675 Level 3 Est. Patient 13:19:20 CDT Carlton rich MD [facility] CPT-07324 Level 3 Est. Patient 13:06:43 CDT Ridge tam DO [facility] CPT-93000 Level 3 Est. Patient 10:03:07 CDT Perez Mora MD [facility]-17269 Level 3 Est. Patient 19:50:35 GAME DEVELOPER Carlton rich MD [facility]-41379 Level 4 Est. Patient 18:05:01 GAME DEVELOPER Carlton rich MD [facility] CPT-57219 Level 3 Est. Patient 10:45:55 GAME DEVELOPER Hugo Restrepo MD [facility] CPT-12681 Level 3 Est. Patient 14:12:49 CDT Griffin lincoln [facility] CPT-36665 Level 3 Est. Patient 17:37:24 CDT Carlton rich MD [facility] CPT-04812 Level 3 Est. Patient 16:51:54 CDT Carlton rich MD [facility] CPT-63795 Level 3 Est. Patient 12:18:11 CDT Hugo Restrepo MD [facility]-76364 Level 3 Est. Patient 11:30:25 CDT Marcy crisostomo MD PhD [facility]-84762 Level 3 Est. Patient 12:00:47 GAME DEVELOPER Carlton rich MD [facility]-97633 Level 3 Est. Patient 16:31:06 GAME DEVELOPER Carlton rich MD [facility] CPT-72128 Level 3 Est. Patient 16:23:24 GAME DEVELOPER Ridge tam [facility] CPT-44660 Level 3 Est. Patient 12:34:12 CDT Carlton rich MD [facility] CPT-04114 Level 2 Est. Patient 15:43:33 CDT Robi armstrong MD [facility] CPT-00863 Level 4 Est. Patient 14:04:44 CDT Carlton rich MD [facility] CPT-75066 Level 3 Est. Patient 05:47:59 CDT [place] [facility] CPT-52871 Level 3 Est. 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 Patient 14:26:53 CDT Hugo Restrepo MD [facility] Procedures Code Procedure Name Date Entry Date Standard Desc ription CPT-J1040 Depo Medrol 80 mg (Methyl Prednisolone A cetate) 10:42:44 CDT CPT-J1100 Decadron 8mg (Dexamethasone) 10:42:44 CDT 2 CPT-J0696 Rocephin 1gm Inj Solr 14:32:13 CDT CPT-J1020 Depo Medrol 60 mg (Methyl Prednisolone A cetate) 14:32:13 CDT CPT-J1100 Decadron 6mg (Dexamethasone) 14:32:13 CDT 2 CPT-60047 Hip bilat min 2V w AP pelvis 13:16:20 CDT 2 CPT-26007 Pelvis only 13:07:33 CDT CPT-55177 Spec Collection and Handling Fee 11:25:12 C DT CPT-56983 Fluzone Quadrivalent Intramuscular Suspe nsion 0.5 ML 14:31:55 CDT CPT-71847 Abx/Therapy Injection 13:28:47 [employer] CPT-J2930 Solu Medrol 125 mg (Methyl Prednisolone Sodium Succinate) 12:00:47 [employer]AME DEVEL[employer] CPT-48104 Venipuncture Draw Fee 11:33:31 CDT CPT-65526 EKG Trac and Interp 11:21:09 CDT CPT-56357 Chest 2V Frontal and Lat 11:21:09 CDT 12/15 CPT-80527 Venipuncture Draw Fee 08:02:34 CDT CPT-93032 Chest 2V Frontal and Lat 05:47:59 CDT 06/05
--- OUTSIDE RECORDS SUMMARY | 2019-10-08 08:26 | XMS REPORT | Clinical Summary ---
Author Author Caitlin, Juliana Martinez Organization [facility] Address Unknown Phone Unavailable Allergies, Adverse [...] of unspecified site Pharyngitis acute 462 Resolved uHgo Restrepo MD Acute pharyngitis Rhinitis, acute 460 [...] times daily for 7 days POTASSIUM CHLORIDE [id number] Active Columba Raida Active TUSSIONEX PENNKINETIC ER 10-8 MG/5ML LQCR 5ml po q12hr PRN Cough 20 14/09/04 HYDROCOD POLST-CHLORPHEN POLST 54897686822 Active Elise Whitmore APRN Active ZITHROMAX 250 MG TAB 2 po today, then 1 po q days 2-5 AZITHROMYCIN 63987420681 No Longer Active Elise Whitmore APRN Acti ve TUSSIONEX PENNKINETIC ER 10-8 MG/5ML LQCR 5 ml twice a day a s needed for cough HYDROCOD POLST-CHLORPHEN POLST 69066575963 N o Longer Active Elise Whitmore APRN Active MONTELUKAST SODIUM 10 MG ORAL TABS 1 po daily for Allergy 6 MONTELUKAST SODIUM 63872089401 Active Carlton Hu MD Ac tive TUSSIONEX PENNKINETIC ER 10-8 MG/5ML LQCR 5ml po q12hr PRN Cough HYDROCOD POLST-CHLORPHEN POLST 78586172232 No Longer Active Hugo Restrepo MD Active GABAPENTIN 100 MG CAPS 1 po BID for fibromyalgia GABAPENTIN 71017021501 Active Elise Whitmore APRN Active LYRICA 100 MG CAPS Take 1 tab po BID for fibromyalgia PREGABALIN 29468328546 No Longer Active Elise Whitmore APRN Acti ve PROAIR HFA 108 (90 BASE) MCG/ACT AERS 2 puffs four times a d ay as needed ALBUTEROL SULFATE 94030419878 Active Elise Whitmore APRN Active MUCINEX DM MAXIMUM STRENGTH 60-1200 MG [id number] 1 tab po q am 2016 DEXTROMETHORPHAN-GUAIFENESIN 83674833011 Active Jillina Frazell FURNACE PUNCHER Active PREDNISONE 20 MG TAB 2 tabs daily for 3 days, 1 t ab daily for 3 days, 1/2 tab daily for 2 days PREDNISONE 37553697342 No Longer Active Jillina Frazell FURNACE PUNCHER Active TUSSIONEX PENNKINETIC ER 10-8 MG/5ML ORAL LQCR 5 mL PO q 12 hrs PRN cough HYDROCOD POLST-CHLORPHEN POLST 23616818230 No Longer Active Jillina Frazell FURNACE PUNCHER Active FLUTICASONE PROPIONATE 50 MCG/ACT SUSP 2 sprays each n ostril daily until bottle is empty FLUTICASONE PROPIONATE 56224478712 No Longer Ac tive Jillina Frazell FURNACE PUNCHER Active ASMANEX 60 METERED DOSES 220 MCG/INH AEPB 1 puff bid with ri nse after MOMETASONE FUROATE 57046410992 No Longer Active Diya meneses FURNACE PUNCHER Active ZITHROMAX Z-REYNA 250 MG TABS 2 today, then 1 daily for 4 days 201 09/29/14 AZITHROMYCIN 08452872090 No Longer Active Elise Whitmore FURNACE PUNCHER Active TUSSIONEX PENNKINETIC ER 10-8 MG/5ML LQCR 5ml po q12hr PRN Cough HYDROCOD POLST-CHLORPHEN POLST 41578813702 No Longer Active Elise Whitmore FURNACE PUNCHER Active MUCINEX D 60-600 MG [id number] 1 tab po q am PSEUDOEPHEDRINE-GUAIFENESIN 87454699657 Active Diya De Guzman F[employer]NACE P[employer]CHER Active PREDNISONE 20 MG TAB 2 tabs daily for 3 days, 1 t ab daily for 3 days, 1/2 tab daily for 2 days PREDNISONE 21069431142 No Longer Active Diya De Guzman F[employer]NACE PUNCHER Active AMOXICILLIN 500 MG CAPS 2 po BID x 10 days AMOX ICILLIN 71731997328 No Longer Active Diya De Guzman F[employer]NACE PUNCHER Active SINGULAIR 10 MG TABS 1 po qday for allergies 2 MONTELUKAST SODIUM 04832348819 No Longer Active Carlton Hu MD Acti ve LEVAQUIN 500 MG TAB 1 tablet by mouth daily LEV OFLOXACIN 03440594912 No Longer Active Carlton Hu MD Active FLUTICASONE PROPIONATE 50 MCG/ACT SUSP 2 sprays each n ostril daily for 2 weeks, then 1 spray each nostril daily. FLUTICASONE PRO PIONATE 46375476887 Active Elise Whitmore APRN Active ZITHROMAX 250 MG TAB 2 po today, then 1 po q days 2-5 AZITHROMYCIN 16865473853 No Longer Active Elise Whitmore APRN Acti ve XANAX 0.5 MG TABS one tablet by mouth daily prn anxiety ALPRAZOLAM 72492959707 Active Elise Whitmore APRN Active CYMBALTA 30 MG CPEP 1 cap by mouth daily for depression DULOXETINE HCL 10034354453 Active Carlton Hu MD Active CEFDINIR 300 MG CAPS 1 po BID x 10 days CEFDINI R 37008423926 No Longer Active Carlton Hu MD Active ZOCOR 40 MG TAB 1 tab by mouth daily SIMVASTATI N 89048515679 No Longer Active Carlton Hu MD Active CYCLOBENZAPRINE HCL 10 MG TABS 1 tablet by mouth BID prn had cherelle n CYCLOBENZAPRINE HCL 53786930677 No Longer Active Carlton Hu MD Active LEVOFLOXACIN 500 MG ORAL TABS 1 tab PO daily x 10 days LEVOFLOXACIN 37957585483 No Longer Active Carlton Hu MD Acti ve PREDNISONE 20 MG ORAL TABS 3 tab PO qd x 2d, 2 tab PO qd x 2d, 1 tab PO qd x 2d, 1/2 tab PO qd x 2d PREDNISONE 40966198806 No Longer Active Carlton Hu MD Active FLUTICASONE PROPIONATE 50 MCG/ACT SUSP 1 to 2 sprays each no stril daily FLUTICASONE PROPIONATE 22888698890 No Longer Active T jaz HERNANDEZ Active CHERATUSSIN AC 100-10 MG/5ML SYRP 1 tsp by mouth every 4 hours as needed for cough GUAIFENESIN-CODEINE 21649180942 No Longer Activ e Blaine HERNANDEZ Active PROMETHAZINE-CODEINE 6.25-10 MG/5ML SYRP 1 tsp by mout h every 6 hours if needed for cough PROMETHAZINE-CODEINE 97916029998 No Long er Active Blaine HERNANDEZ Active CHERATUSSIN AC 100-10 MG/5ML SYRP 1 tsp by mouth every 4 hours as needed for cough GUAIFENESIN-CODEINE 44411445091 No Longer Activ e Blaine HERNANDEZ Active ZITHROMAX Z-REYNA 250 MG TABS 2 today, then 1 daily for 4 days 201 08/30/03 AZITHROMYCIN 40160703309 No Longer Active Columba Raida Act nael ZITHROMAX 250 MG TAB 2 po today, then 1 po q days 2-5 AZITHROMYCIN 06741996789 No Longer Active Carlton Hu MD Acti ve ZITHROMAX Z-REYNA 250 MG TABS 2 today, then 1 daily for 4 days 201 08/07/20 AZITHROMYCIN 98417225902 No Longer Active Columba Raida Act nael AUGMENTIN 875-125 MG TAB 1 po BID x 10 days AMOXICILLIN- POT CLAVULANATE 61960404365 No Longer Active Jillshakira Sernazell F[employer]NACE P[employer]CHER Active ZITHROMAX 250 MG TAB 2 po today, then 1 po q days 2-5 AZITHROMYCIN 58358609301 No Longer Active Carlton Hu MD Acti ve TRAMADOL HCL 50 MG TABS 1 po tid with ES Tylenol TRAMADOL HCL 98594239662 Active Carlton Hu MD Active PREMARIN 0.625 MG TABS TAKE 1 TAB BY MOUTH DAILY 07/25 ESTROGENS CONJUGATED 56581993737 No Longer Active Ridge Bess DO Active CYMBALTA 30 MG CPEP 1 cap by mouth daily DULOXE SNEHA HCL 57289270297 No Longer Active Ridge Bess DO Active AMOXICILLIN 500 MG CAP 1 tab by mouth 3 times daily x 10 days 20 14/04/28 AMOXICILLIN 55283441065 No Longer Active Carlton Hu MD Active AMOXICILLIN 500 MG CAP 1 tab by mouth 3 times daily x 10 days 20 13/03/08 AMOXICILLIN 67311848191 No Longer Active Carlton Hu MD Active PROMETHAZINE-CODEINE 6.25-10 MG/5ML SYRP 1 tsp by mouth ever y 8 hours prn cough PROMETHAZINE-CODEINE 72106470213 No Longer Active Robert Hu MD Active MEDROL (REYNA) 4 MG TABS 6 pills x 1 day, then 5 pill s x 1 day then 4 pills x 1 day, then 3 pills x 1 day, then 2 pills x 1 day, then 1 pill x 1 day, then stop METHYLPREDNISOLONE 91268492922 No Longer Active Parris Mora MD Active AZITHROMYCIN 250 MG TABS 2 po qd x 1 day, then 1 po qd x 4 days AZITHROMYCIN 77439379136 No Longer Active Perez Mora MD Active SYMBICORT 160-4.5 MCG/ACT AERO 2 puffs bid with rinse after 2011 BUDESONIDE-FORMOTEROL FUMARATE 05177080324 No Longer Active Perez Mora MD Active LYRICA 75 MG CAPS TAKE 1 CAPSULE BY MOUTH TWICE DAILY 2013 PREGABALIN 90672501175 No Longer Active Carlton Hu MD Active TOPAMAX 25 MG TABS 1 qHS x 1 week, then 1 BID x 1 week, then 1 qAM and 2 qHS x 1 week, then 2 BID (migraine prevention) TOPIRAMAT E 27873088569 No Longer Active Jerica FUENTES Active TOPAMAX 50 MG TABS take 1 tab po BID for migraines. 12/07/10 TOPIRAMATE 54642021767 No Longer Active Jerica FUENTES Ac tive TOPAMAX 100 MG TABS Take 1 tablet po bid TOPIRAMATE 4999 9602970 Active Elise Whitmore [employer] P[employer]CHER Active TRIAMCINOLONE ACETONIDE 0.1 % CREA apply three times daily prn r beatrice TRIAMCINOLONE ACETONIDE 78062297801 No Longer Active Carlton Hu MD Active PAXIL 40 MG TAB take 1 tab po qday for depression PAROXETINE HCL 42105654956 Active Carlton Hu MD Active CHERATUSSIN AC 100-10 MG/5ML SYRP 5ml po q6hr PRN Cough GUAIFENESIN-CODEINE 84115362510 No Longer Active Carlton Hu MD Active MEDROL (REYNA) 4 MG TABS 6 tabs on day 1, 5 tabs on d ay 2, 4 tabs on day 3, 3 tabs on day 4, 2 tabs on day 5, 1 tab on day 6 METHYLPREDNISOLONE 77322320723 No Longer Active Perez Mora MD Active AZITHROMYCIN 250 MG TABS 2 po qd x 1 day, then 1 po qd x 4 days AZITHROMYCIN 17949958548 No Longer Active Perez Mora MD Active PROPRANOLOL HCL 60 MG TABS 1 PO Q D PROPRANOL OL HCL 06671138689 No Longer Active Perez Mora MD Active CHERATUSSIN AC 100-10 MG/5ML SYRP take one tsp po Q 6hours prn c ough GUAIFENESIN-CODEINE 49423161400 No Longer Active Perez Means Active AUGMENTIN 875-125 MG TAB 1 tab by mouth twice daily with food 20 12/03/31 AMOXICILLIN-POT CLAVULANATE 04605378002 No Longer Active Chanel Mora MD Active CHERATUSSIN AC 100-10 MG/5ML SYRP 1 tsp by mouth every 4 hours as needed for cough GUAIFENESIN-CODEINE 84149416231 No Longer Activ e Hugo Restrepo MD Active ACETAMINOPHEN-CODEINE #3 300-30 MG TABS 1 PO Q 4-6 HRS PRN PAIN ACETAMINOPHEN-CODEINE 93680893594 No Longer Active Hugo Restrepo MD Active LEVAQUIN 500 MG TABS take one po QD LEVOFLOXACI N 36060836072 No Longer Active Griffin HERNANDEZ Active PREDNISONE 20 MG TAB Take 3 tabs daily for 3 days , 2 tabs daily for 3 days, 1 tab daily for 3 days, 1/2 tab daily for 3 days P REDNISONE 93951246858 No Longer Active Carlton Hu MD Active AVELOX 400 MG TABS 1 tab by mouth daily MOXIFLO XACIN HCL 46181124162 No Longer Active Carlton Hu MD Active CHERATUSSIN AC 100-10 MG/5ML SYRP 1 tsp by mouth every 4 hours as needed for cough GUAIFENESIN-CODEINE 40582872031 No Longer Activ e Hugo Restrepo MD Active AVELOX 400 MG TABS 1 tab by mouth daily MOXIFLO XACIN HCL 85294000006 No Longer Active Marcy De La Rosa MD PhD Active TERBINAFINE HCL 250 MG TABS 1 qDay TERBINAF INE HCL 70479579739 No Longer Active aMrcy De La Rosa MD PhD Active CHERATUSSIN AC 100-10 MG/5ML SYRP 1 tsp by mouth every 4 hours as needed for cough GUAIFENESIN-CODEINE 97478778518 No Longer Activ e Marcy De La Rosa MD PhD Active AVELOX 400 MG TABS 1 tab by mouth daily MOXIFLO XACIN HCL 91491316529 No Longer Active Marcy De La Rosa MD PhD Active HYDROCODONE-ACETAMINOPHEN 5-325 MG TABS 1 po q 6hr PRN cough 201 05/09/16 HYDROCODONE-ACETAMINOPHEN 06552253566 No Longer Active Marcy De La Rosa MD PhD Active PREDNISONE 20 MG TAB 2 tabs daily for 3 days, 1 t ab daily for 3 days, 1/2 tab daily for 2 days PREDNISONE 36859075698 No Longer Active Carlton Hu MD Active CEFDINIR 300 MG CAPS by mouth twice a day CEFDI ODILIA 37625985540 No Longer Active Carlton Hu MD Active HYDROCHLOROTHIAZIDE 25 MG TABS 1 TAB PO DAILY H YDROCHLOROTHIAZIDE 07598212732 Active Carlton Hu MD Active ACETAMINOPHEN-CODEINE #3 300-30 MG TABS 1 tablet po q 4-6hrs prn pain ACETAMINOPHEN-CODEINE 69621572703 No Longer Active Ridge Bess DO Active ZITHROMAX 250 MG TAB 2 po today, then 1 po q days 2-5 AZITHROMYCIN 90359552592 No Longer Active Carlton Hu MD Acti ve CHERATUSSIN AC 100-10 MG/5ML SYRP take 1 tsp po q4-6 hours prn c ough GUAIFENESIN-CODEINE 22936528064 No Longer Active Carlton Hu MD Active ACETAMINOPHEN-CODEINE #3 300-30 MG TABS 1 PO Q 4-6 HR PRN PAIN 2 ACETAMINOPHEN-CODEINE 48008058833 No Longer Active Carlton rich MD Active LORTAB 7.5-500 MG/15ML ELIX 7.5 ml po q 4 hour prn cough HYDROCODONE-ACETAMINOPHEN 75618223846 No Longer Active Carlton Hu MD Active PREDNISONE 20 MG TAB 1 po bid 3 days, then 1 po q day 3 days 201 05/03/07 PREDNISONE 47960770810 No Longer Active Carlton Hu MD Active ELMIRON 100 MG CAPS 2 tablets in the am and 1 tablet at hs PENTOSAN POLYSULFATE SODIUM 21231158871 Active Carlton Hu MD Ac tive CEFDINIR 300 MG CAPS by mouth twice a day CEFDI ODILIA 53089664326 No Longer Active Carlton Hu MD Active CEFDINIR 300 MG CAPS by mouth twice a day CEFDI ODILIA 65926255425 No Longer Active Carlton Hu MD Active CEFDINIR 300 MG CAPS by mouth twice a day CEFDI ODILIA 17029316041 No Longer Active Carlton Hu MD Active TESSALON PERLES 100 MG CAP 1 tablet by mouth 3 times daily a s needed for cough BENZONATATE 42804416078 No Longer Active Carlton bustamante MD Active CEFDINIR 300 MG CAPS by mouth twice a day CEFDI ODILIA 77095718866 No Longer Active Carlton Hu MD Active ZITHROMAX Z-REYNA 250 MG TABS 2 today, then 1 daily for 4 days 201 04/09/17 AZITHROMYCIN 25753131597 No Longer Active Hugo Restrepo MD Active TESSALON PERLES 100 MG CAP 1 tablet by mouth 3 times daily a s needed for cough TESSALON PERLES 100 MG CAP 313762 BENZONATATE I nactive PREDNISONE 20 MG TAB 1 po bid 3 days, then 1 po q day 3 days 201 05/03/07 PREDNISONE 20 MG TAB 637739 PREDNISONE Inactive LORTAB 7.5-500 MG/15ML ELIX 7.5 ml po q 4 hour prn cough LORTAB 7.5-500 MG/15ML ELIX HYDROCODONE-ACETAMINOPHEN Inacti ve ACETAMINOPHEN-CODEINE #3 300-30 MG TABS 1 PO Q 4-6 HR PRN PAIN 2 ACETAMINOPHEN-CODEINE #3 300-30 MG TABS ACETAMIN OPHEN-CODEINE Inactive CHERATUSSIN AC 100-10 MG/5ML SYRP take 1 tsp po q4-6 hours prn c ough CHERATUSSIN AC 100-10 MG/5ML SYRP 505061 GUAIFENESIN-CO DEINE Inactive ACETAMINOPHEN-CODEINE #3 300-30 MG TABS 1 tablet po q 4-6hrs prn pain ACETAMINOPHEN-CODEINE #3 300-30 MG TABS ACETAMIN OPHEN-CODEINE Inactive HYDROCODONE-ACETAMINOPHEN 5-325 MG TABS 1 po q 6hr PRN cough 201 05/09/16 HYDROCODONE-ACETAMINOPHEN 5-325 MG TABS 627131 HYDROCODONE-ACETAMINOPHEN Inactive AVELOX 400 MG TABS 1 tab by mouth daily A VELOX 400 MG TABS 352454 MOXIFLOXACIN HCL Inactive CHERATUSSIN AC 100-10 MG/5ML SYRP 1 tsp by mouth every 4 hours as needed for cough CHERATUSSIN AC 100-10 MG/5ML SYRP 706254 GUAIFENESIN-CODEINE Inactive TERBINAFINE HCL 250 MG TABS 1 qDay TERBINAFINE HCL 250 MG TABS 670175 TERBINAFINE HCL Inactive CHERATUSSIN AC 100-10 MG/5ML SYRP 1 tsp by mouth every 4 hours as needed for cough CHERATUSSIN AC 100-10 MG/5ML SYRP 622726 GUAIFENESIN-CODEINE Inactive ACETAMINOPHEN-CODEINE #3 300-30 MG TABS 1 PO Q 4-6 HRS PRN PAIN ACETAMINOPHEN-CODEINE #3 300-30 MG TABS ACETAMINOPHEN-CODEIN E Inactive CHERATUSSIN AC 100-10 MG/5ML SYRP 1 tsp by mouth every 4 hours as needed for cough CHERATUSSIN AC 100-10 MG/5ML SYRP 301977 GUAIFENESIN-CODEINE Inactive AUGMENTIN 875-125 MG TAB 1 tab by mouth twice daily with food 20 12/03/31 AUGMENTIN 875-125 MG TAB 578398 AMOXICILLIN-POT CLAVULA EFE Inactive CHERATUSSIN AC 100-10 MG/5ML SYRP take one tsp po Q 6hours prn c ough CHERATUSSIN AC 100-10 MG/5ML SYRP 307351 GUAIFENESIN-CO DEINE Inactive PROPRANOLOL HCL 60 MG TABS 1 PO Q D P ROPRANOLOL HCL 60 MG TABS 494649 PROPRANOLOL HCL Inactive TOPAMAX 50 MG TABS take 1 tab po BID for migraines. 12/07/10 TOPAMAX 50 MG TABS 390433 TOPIRAMATE Inactive TOPAMAX 25 MG TABS 1 qHS x 1 week, then 1 BID x 1 week, then 1 qAM and 2 qHS x 1 week, then 2 BID (migraine prevention) TOPAMAX 2 5 MG TABS 487945 TOPIRAMATE Inactive LYRICA 75 MG CAPS TAKE 1 CAPSULE BY MOUTH TWICE DAILY LYRICA 75 MG CAPS PREGABALIN Inactive SYMBICORT 160-4.5 MCG/ACT AERO 2 puffs bid with rinse after 2011 SYMBICORT 160-4.5 MCG/ACT AERO BUDESONIDE-FORMOT SÁNCHEZ FUMARATE Inactive PROMETHAZINE-CODEINE 6.25-10 MG/5ML SYRP 1 tsp by mouth ever y 8 hours prn cough PROMETHAZINE-CODEINE 6.25-10 MG/5ML SYRP 455967 PROMETHAZINE-CODEINE Inactive CYMBALTA 30 MG CPEP 1 cap by mouth daily CYMBALTA 30 MG CPEP 683983 DULOXETINE HCL Inactive PREMARIN 0.625 MG TABS TAKE 1 TAB BY MOUTH DAILY 07/25 PREMARIN 0.625 MG TABS ESTROGENS CONJUGATED Inactive CHERATUSSIN AC 100-10 MG/5ML SYRP 1 tsp by mouth every 4 hours as needed for cough CHERATUSSIN AC 100-10 MG/5ML SYRP 448348 GUAIFENESIN-CODEINE Inactive PROMETHAZINE-CODEINE 6.25-10 MG/5ML SYRP 1 tsp by mout h every 6 hours if needed for cough PROMETHAZINE-CODEINE 6.25-10 MG/5ML SYRP 492887 PROMETHAZINE-CODEINE Inactive CHERATUSSIN AC 100-10 MG/5ML SYRP 1 tsp by mouth every 4 hours as needed for cough CHERATUSSIN AC 100-10 MG/5ML SYRP 062618 GUAIFENESIN-CODEINE Inactive FLUTICASONE PROPIONATE 50 MCG/ACT SUSP 1 to 2 sprays each no stril daily FLUTICASONE PROPIONATE 50 MCG/ACT SUSP 2038659 FLUTICASONE PROPIONATE Inactive PREDNISONE 20 MG ORAL TABS 3 tab PO qd x 2d, 2 tab PO qd x 2d, 1 tab PO qd x 2d, 1/2 tab PO qd x 2d PREDNISONE 20 MG ORAL TABS 806569 PREDNISONE Inactive LEVOFLOXACIN 500 MG ORAL TABS 1 tab PO daily x 10 days LEVOFLOXACIN 500 MG ORAL TABS 800987 LEVOFLOXACIN Inactive CYCLOBENZAPRINE HCL 10 MG TABS 1 tablet by mouth BID prn had cherelle n CYCLOBENZAPRINE HCL 10 MG TABS 438471 CYCLOBENZAPRINE H CL Inactive ZOCOR 40 MG TAB 1 tab by mouth daily ZOCOR 40 M G TAB 032684 SIMVASTATIN Inactive TUSSIONEX PENNKINETIC ER 10-8 MG/5ML [...] empty FLUTICASONE PROPIONATE 50 MCG/ACT SUSP 17 45722 FLUTICASONE PROPIONATE Inactive TUSSIONEX PENNKINETIC ER 10-8 [...] 201 04/09/17 ZITHROMAX Z-REYNA 250 MG TABS 3676572 AZITHROMYCIN Inac tive CEFDINIR 300 MG CAPS [...] q days 2-5 ZITHROMAX 250 MG TAB 5273253 AZITHROMYCIN Inactive CEFDINIR 300 MG CAPS by mouth twice a day CEFDINIR 300 MG CAPS 20020704 CEFDINIR Inactive PREDNISONE 20 MG TAB 2 tabs daily for 3 days, 1 t ab daily for 3 days, 1/2 tab daily for 2 days PREDNISONE 20 MG TAB 872965 PREDNISON E Inactive AVELOX 400 MG TABS 1 tab by mouth daily A VELOX 400 MG TABS 216868 MOXIFLOXACIN HCL Inactive AVELOX 400 MG TABS 1 tab by mouth daily A VELOX 400 MG TABS 685464 MOXIFLOXACIN HCL Inactive PREDNISONE 20 MG TAB Take 3 tabs daily for 3 days , 2 tabs daily for 3 days, 1 tab daily for 3 days, 1/2 tab daily for 3 days PREDNISONE 20 MG TAB 228212 PREDNISONE Inactive LEVAQUIN 500 MG TABS take one po QD LEVAQUIN 50 0 MG TABS 185548 LEVOFLOXACIN Inactive AZITHROMYCIN 250 MG TABS 2 po qd x 1 day, then 1 po qd x 4 days AZITHROMYCIN 250 MG TABS 2120433 AZITHROMYCIN Inactiv e MEDROL (REYNA) 4 MG TABS 6 tabs on day 1, 5 tabs on d ay 2, 4 tabs on day 3, 3 tabs on day 4, 2 tabs on day 5, 1 tab on day 6 MEDROL (REYNA) 4 MG TABS 376475 METHYLPREDNISOLONE Inactive CHERATUSSIN AC 100-10 MG/5ML SYRP 5ml po q6hr PRN Cough CHERATUSSIN AC 100-10 MG/5ML SYRP 549817 GUAIFENESIN-CODEINE Inacti ve TRIAMCINOLONE ACETONIDE 0.1 % CREA apply three times daily prn r beatrice TRIAMCINOLONE ACETONIDE 0.1 % CREA 2532874 TRIAMCINOLONE ACETONIDE Inactive AZITHROMYCIN 250 MG TABS 2 po qd x 1 day, then 1 po qd x 4 days AZITHROMYCIN 250 MG TABS 2756296 AZITHROMYCIN Inactiv e MEDROL (REYNA) 4 MG TABS 6 pills x 1 day, then 5 pill s x 1 day then 4 pills x 1 day, then 3 pills x 1 day, then 2 pills x 1 day, then 1 pill x 1 day, then stop MEDROL (REYNA) 4 MG TABS 750042 METHYLPREDNISOLONE Inactive AMOXICILLIN 500 MG CAP 1 tab by mouth 3 times daily x 10 days 20 13/03/08 AMOXICILLIN 500 MG CAP 560283 AMOXICILLIN Inactive AMOXICILLIN 500 MG CAP 1 tab by mouth 3 times daily x 10 days 20 14/04/28 AMOXICILLIN 500 MG CAP 778780 AMOXICILLIN Inactive ZITHROMAX 250 MG TAB 2 po today, then 1 po q days 2-5 ZITHROMAX 250 MG TAB 3987776 AZITHROMYCIN Inactive AUGMENTIN 875-125 MG TAB 1 po BID x 10 days AUGMENTIN 875- 125 MG TAB 436252 AMOXICILLIN-POT CLAVULANATE Inactive ZITHROMAX Z-REYNA 250 MG TABS 2 today, then 1 daily for 4 days 201 08/07/20 ZITHROMAX Z-REYNA 250 MG TABS 7565399 AZITHROMYCIN Inac tive ZITHROMAX 250 MG TAB 2 po today, then 1 po q days 2-5 ZITHROMAX 250 MG TAB 0389755 AZITHROMYCIN Inactive ZITHROMAX Z-REYNA 250 MG TABS 2 today, then 1 daily for 4 days 201 08/30/03 ZITHROMAX Z-REYNA 250 MG TABS 4723687 AZITHROMYCIN Inac tive CEFDINIR 300 MG CAPS 1 po BID x 10 days C EFDINIR 300 MG CAPS 20020704 CEFDINIR Inactive ZITHROMAX 250 MG TAB 2 po today, then 1 po q days 2-5 ZITHROMAX 250 MG TAB 1227383 AZITHROMYCIN Inactive LEVAQUIN 500 MG TAB 1 tablet by mouth daily LEVAQUIN 500 MG TAB 496984 LEVOFLOXACIN Inactive SINGULAIR 10 MG TABS 1 po qday for allergies 2 SINGULAIR 10 MG TABS 196679 MONTELUKAST SODIUM Inactive AMOXICILLIN 500 MG CAPS 2 po BID x 10 days AMOXICILLIN 500 MG CAPS 934993 AMOXICILLIN Inactive PREDNISONE 20 MG TAB 2 tabs daily for 3 days, 1 t ab daily for 3 days, 1/2 tab daily for 2 days PREDNISONE 20 MG TAB 861497 PREDNISON E Inactive ZITHROMAX Z-REYNA 250 MG TABS 2 today, then 1 daily for 4 days 201 09/29/14 ZITHROMAX Z-REYNA 250 MG TABS 5279119 AZITHROMYCIN Inac tive PREDNISONE 20 MG TAB 2 tabs daily for 3 days, 1 t ab daily for 3 days, 1/2 tab daily for 2 days PREDNISONE 20 MG TAB 836234 PREDNISON E Inactive ZITHROMAX 250 MG TAB 2 po today, then 1 po q days 2-5 ZITHROMAX 250 MG TAB 9781923 AZITHROMYCIN Inactive Vital Signs Date Name Value [...] - Chem istry sodium, serum 132 mmol/L 294-613 5409/07/12 potassium, serum 2.7 mmol/L 3.5-5.2 chloride, serum 93 mmol/L 98-107 carbon dioxide, venous blood 30.8 mmol/L 21.0-32 .0 blood glucose 107 mg/dL 65-110 calcium, serum 9.3 mg/dL 8.5-10.1 urea nitrogen, blood 12 mg/dL 7-18 creatinine, serum 1.00 mg/dL 0.60-1.30 sodium, serum 142 mmol/L 219-629 1286/07/17 potassium, serum 4.2 mmol/L 3.5-5.2 chloride, serum 106 mmol/L 98-107 carbon dioxide, venous blood 29.9 mmol/L 21.0-32 .0 blood glucose 108 mg/dL 65-110 calcium, serum 9.1 mg/dL 8.5-10.1 urea nitrogen, blood 11 mg/dL 7-18 creatinine, serum 0.81 mg/dL 0.60-1.30 Lab Report: Rapid Strep - Lab Microbial identification kit, rapid strep method Negative Negative Encounters Code Encounter Date Provider Facility CPT-33050 Level 3 Est. Patient 12:17:50 CDT Hugo Restrepo MD [facility] CPT-88505 Level 3 Est. Patient 13:42:38 CDT [facility] CPT-73391 Level 3 Est. Patient 13:23:51 CDT Diya cobian [facility] CPT-32372 Level 3 Est. Patient 14:22:19 DIRECTOR MBA Diya cobian [facility] CPT-53273 Level 3 Est. Patient 10:11:46 CDT Carlton rich MD [facility] CPT-98609 Level 3 Est. Patient 17:29:43 CDT [facility] CPT-48989 Level 3 Est. Patient 11:58:06 CDT [facility] CPT-81038 Level 4 Est. Patient 14:36:51 CDT Carlton rich MD [facility]-01381 Level 3 Est. Patient 18:16:00 DIRECTOR MBA Blaine Freeman [facility]-24366 Level 3 Est. Patient 09:45:49 DIRECTOR MBA Carlton rich MD [facility]-15684 Level 3 Est. Patient 13:19:20 CDT Carlton rihc MD [facility]-31594 Level 3 Est. Patient 13:06:43 CDT Ridge tam DO [facility]-49660 Level 3 Est. Patient 10:03:07 CDT Perez Mora MD [facility]-51772 Level 3 Est. Patient 19:50:35 DIRECTOR MBA Carlton rich MD [facility]-50475 Level 4 Est. Patient 18:05:01 DIRECTOR MBA Carlton rich MD [facility]-20535 Level 3 Est. Patient 10:45:55 DIRECTOR MBA Hugo Restrepo MD [facility]-62315 Level 3 Est. Patient 14:12:49 CDT Griffin lincoln [facility]-85742 Level 3 Est. Patient 17:37:24 CDT Carlton rich MD [facility]-28426 Level 3 Est. Patient 16:51:54 CDT Carlton rich MD [facility]-09946 Level 3 Est. Patient 12:18:11 CDT Hugo Restrepo MD [facility]-08173 Level 3 Est. Patient 11:30:25 CDT Marcy crisostomo MD, PhD [facility]-07899 Level 3 Est. Patient 12:00:47 DIRECTOR MBA Carlton rich MD [facility] CPT-03282 Level 3 Est. Patient 16:31:06 DIRECTOR MBA Carlton rich MD [facility] CPT-28225 Level 3 Est. Patient 16:23:24 DIRECTOR MBA [place] [facility] CPT-03392 Level 3 Est. Patient 12:34:12 CDT Carlton rich MD [facility] CPT-25027 Level 2 Est. Patient 15:43:33 CDT Robi armstrong MD [facility] CPT-01720 Level 4 Est. Patient 14:04:44 CDT Carlton rich MD [facility] CPT-27509 Level 3 Est. Patient 05:47:59 CDT [place] [facility] CPT-19829 Level 3 Est. Patient 13:12:53 DIRECTOR MBA Carlton rich MD [facility] CPT-04818 Level 3 Est. Patient 14:26:53 CDT Hugo Restrepo MD [facility] Procedures Code Procedure Name Date Entry Date Standard Desc ription CPT-J1040 Depo Medrol 80 mg (Methyl Prednisolone A cetate) 10:42:44 CDT CPT-J1100 Decadron 8mg (Dexamethasone) 10:42:44 CDT 2 CPT-J0696 Rocephin 1gm Inj Solr 14:32:13 CDT CPT-J1020 Depo Medrol 60 mg (Methyl Prednisolone A cetate) 14:32:13 CDT CPT-J1100 Decadron 6mg (Dexamethasone) 14:32:13 CDT 2 CPT-66618 Hip bilat min 2V w AP pelvis 13:16:20 CDT 2 CPT-15697 Pelvis only 13:07:33 CDT CPT-71676 Spec Collection and Handling Fee 11:25:12 C DT CPT-03095 Fluzone Quadrivalent Intramuscular Suspe nsion 0.5 ML 14:31:55 CDT CPT-27427 Abx/Therapy Injection 13:28:47 DIRECTOR MBA CPT-J2930 Solu Medrol 125 mg (Methyl Prednisolone Sodium Succinate) 12:00:47 DIRECTOR MBA CPT-40669 Venipuncture Draw Fee 11:33:31 CDT CPT-79108 EKG Trac and Interp 11:21:09 CDT CPT-18920 Chest 2V Frontal and Lat 11:21:09 CDT 12/15 CPT-75252 Venipuncture Draw Fee 08:02:34 CDT CPT-19584 Chest 2V Frontal and Lat 05:47:59 CDT 06/05
--- OUTSIDE RECORDS SUMMARY | 2019-10-08 08:26 | XMS REPORT | Clinical Summary ---
Author Author Caitlin, Juliana Martinez Organization [facility] Address Unknown Phone Unavailable Allergies, [...] of un specified site Pharyngitis 462 Active Hguo Restrepo MD Acute pharyngitis BRONCHITIS ICD-490 Inactive [...] MD Ph D CONTACT DERMATITIS ICD-692.9 Inactive Maryc crisostomo MD PhD SINUSITIS, ACUTE ICD-461.9 Inactive [...] times daily for 7 days POTASSIUM CHLORIDE [id number] Active Columba Raida Active TUSSIONEX PENNKINETIC ER 10-8 MG/5ML LQCR 5ml po q12hr PRN Cough 20 14/09/04 HYDROCOD POLST-CHLORPHEN POLST 31405929838 Active Elise Whitmore APRN Active ZITHROMAX 250 MG TAB 2 po today, then 1 po q days 2-5 AZITHROMYCIN 25335406461 No Longer Active Elise Whitmore APRN Acti ve TUSSIONEX PENNKINETIC ER 10-8 MG/5ML LQCR 5 ml twice a day a s needed for cough HYDROCOD POLST-CHLORPHEN POLST 26136088229 N o Longer Active Elise Whitmore APRN Active MONTELUKAST SODIUM 10 MG ORAL TABS 1 po daily for Allergy 6 MONTELUKAST SODIUM 96618272679 Active Carlton Hu MD Ac tive TUSSIONEX PENNKINETIC ER 10-8 MG/5ML LQCR 5ml po q12hr PRN Cough HYDROCOD POLST-CHLORPHEN POLST 34646394571 No Longer Active Hugo Restrepo MD Active GABAPENTIN 100 MG CAPS 1 po BID for fibromyalgia GABAPENTIN 15688885458 Active Elise Whitmore APRN Active LYRICA 100 MG CAPS Take 1 tab po BID for fibromyalgia PREGABALIN 94548495669 No Longer Active Elise Whitmore APRN Acti ve PROAIR HFA 108 (90 BASE) MCG/ACT AERS 2 puffs four times a d ay as needed ALBUTEROL SULFATE 54758151126 Active Elise Whitmore APRN Active MUCINEX DM MAXIMUM STRENGTH 60-1200 MG [id number] 1 tab po q am 2016 DEXTROMETHORPHAN-GUAIFENESIN 73961940956 Active Jillina Frazell ATTENDANCE SECRETARY Active PREDNISONE 20 MG TAB 2 tabs daily for 3 days, 1 t ab daily for 3 days, 1/2 tab daily for 2 days PREDNISONE 18068310445 No Longer Active Jillina Frazell ATTENDANCE SECRETARY Active TUSSIONEX PENNKINETIC ER 10-8 MG/5ML ORAL LQCR 5 mL PO q 12 hrs PRN cough HYDROCOD POLST-CHLORPHEN POLST 55598284780 No Longer Active Jillina Frazell ATTENDANCE SECRETARY Active FLUTICASONE PROPIONATE 50 MCG/ACT SUSP 2 sprays each n ostril daily until bottle is empty FLUTICASONE PROPIONATE 39866593703 No Longer Ac tive Jillina Frazell ATTENDANCE SECRETARY Active ASMANEX 60 METERED DOSES 220 MCG/INH AEPB 1 puff bid with ri nse after MOMETASONE FUROATE 41819485616 No Longer Active Diya meneses ATTENDANCE SECRETARY Active ZITHROMAX Z-REYNA 250 MG TABS 2 today, then 1 daily for 4 days 201 09/29/14 AZITHROMYCIN 99189139935 No Longer Active Elise Whitmore ATTENDANCE SECRETARY Active TUSSIONEX PENNKINETIC ER 10-8 MG/5ML LQCR 5ml po q12hr PRN Cough HYDROCOD POLST-CHLORPHEN POLST 67680192107 No Longer Active Elise Whitmore ATTENDANCE SECRETARY Active MUCINEX D 60-600 MG [id number] 1 tab po q am PSEUDOEPHEDRINE-GUAIFENESIN 24349243181 Active Diya De Guzman ATTENDANCE SECRETARY Active PREDNISONE 20 MG TAB 2 tabs daily for 3 days, 1 t ab daily for 3 days, 1/2 tab daily for 2 days PREDNISONE 82750388823 No Longer Active Diya De Guzman ATTENDANCE SECRETARY Active AMOXICILLIN 500 MG CAPS 2 po BID x 10 days AMOX ICILLIN 23008271691 No Longer Active Diya De Guzman ATTENDANCE SECRETARY Active SINGULAIR 10 MG TABS 1 po qday for allergies 2 MONTELUKAST SODIUM 27235682682 No Longer Active Carlton Hu MD Acti ve LEVAQUIN 500 MG TAB 1 tablet by mouth daily LEV OFLOXACIN 18328979373 No Longer Active Carlton Hu MD Active FLUTICASONE PROPIONATE 50 MCG/ACT SUSP 2 sprays each n ostril daily for 2 weeks, then 1 spray each nostril daily. FLUTICASONE PRO PIONATE 33717566295 Active Elise Whitmore APRN Active ZITHROMAX 250 MG TAB 2 po today, then 1 po q days 2-5 AZITHROMYCIN 72517724518 No Longer Active Elise Whitmore APRN Acti ve XANAX 0.5 MG TABS one tablet by mouth daily prn anxiety ALPRAZOLAM 35953658755 Active Elise Whitmore APRN Active CYMBALTA 30 MG CPEP 1 cap by mouth daily for depression DULOXETINE HCL 64454107177 Active Carlton Hu MD Active CEFDINIR 300 MG CAPS 1 po BID x 10 days CEFDINI R 41088235870 No Longer Active Carlton Hu MD Active ZOCOR 40 MG TAB 1 tab by mouth daily SIMVASTATI N 41187241993 No Longer Active Carlton Hu MD Active CYCLOBENZAPRINE HCL 10 MG TABS 1 tablet by mouth BID prn had cherelle n CYCLOBENZAPRINE HCL 97558579975 No Longer Active Carlton Hu MD Active LEVOFLOXACIN 500 MG ORAL TABS 1 tab PO daily x 10 days LEVOFLOXACIN 89936000303 No Longer Active Carlton Hu MD Acti ve PREDNISONE 20 MG ORAL TABS 3 tab PO qd x 2d, 2 tab PO qd x 2d, 1 tab PO qd x 2d, 1/2 tab PO qd x 2d PREDNISONE 16771719168 No Longer Active Carlton Hu MD Active FLUTICASONE PROPIONATE 50 MCG/ACT SUSP 1 to 2 sprays each no stril daily FLUTICASONE PROPIONATE 08092129553 No Longer Active T jaz HERNANDEZ Active CHERATUSSIN AC 100-10 MG/5ML SYRP 1 tsp by mouth every 4 hours as needed for cough GUAIFENESIN-CODEINE 42728384967 No Longer Activ e Blaine HERNANDEZ Active PROMETHAZINE-CODEINE 6.25-10 MG/5ML SYRP 1 tsp by mout h every 6 hours if needed for cough PROMETHAZINE-CODEINE 11202850498 No Long er Active Blaine HERNANDEZ Active CHERATUSSIN AC 100-10 MG/5ML SYRP 1 tsp by mouth every 4 hours as needed for cough GUAIFENESIN-CODEINE 13306595395 No Longer Activ e Blaine HERNANDEZ Active ZITHROMAX Z-REYNA 250 MG TABS 2 today, then 1 daily for 4 days 201 08/30/03 AZITHROMYCIN 78818588669 No Longer Active Columba Raida Act nael ZITHROMAX 250 MG TAB 2 po today, then 1 po q days 2-5 AZITHROMYCIN 58687922470 No Longer Active Carlton Hu MD Acti ve ZITHROMAX Z-REYNA 250 MG TABS 2 today, then 1 daily for 4 days 201 08/07/20 AZITHROMYCIN 24890391391 No Longer Active Columba Raida Act nael AUGMENTIN 875-125 MG TAB 1 po BID x 10 days AMOXICILLIN- POT CLAVULANATE 93850965010 No Longer Active Jillshakira Sernazell ATTENDANCE SECRETARY Active ZITHROMAX 250 MG TAB 2 po today, then 1 po q days 2-5 AZITHROMYCIN 52969286469 No Longer Active Carlton Hu MD Acti ve TRAMADOL HCL 50 MG TABS 1 po tid with ES Tylenol TRAMADOL HCL 84971221435 Active Carlton Hu MD Active PREMARIN 0.625 MG TABS TAKE 1 TAB BY MOUTH DAILY 07/25 ESTROGENS CONJUGATED 93479258229 No Longer Active Ridge Bess DO Active CYMBALTA 30 MG CPEP 1 cap by mouth daily DULOXE SNEHA HCL 40825602521 No Longer Active Ridge Bess DO Active AMOXICILLIN 500 MG CAP 1 tab by mouth 3 times daily x 10 days 20 14/04/28 AMOXICILLIN 37426907876 No Longer Active Carlton Hu MD Active AMOXICILLIN 500 MG CAP 1 tab by mouth 3 times daily x 10 days 20 13/03/08 AMOXICILLIN 10903708357 No Longer Active Carlton Hu MD Active PROMETHAZINE-CODEINE 6.25-10 MG/5ML SYRP 1 tsp by mouth ever y 8 hours prn cough PROMETHAZINE-CODEINE 04711011097 No Longer Active Robert Hu MD Active MEDROL (REYNA) 4 MG TABS 6 pills x 1 day, then 5 pill s x 1 day then 4 pills x 1 day, then 3 pills x 1 day, then 2 pills x 1 day, then 1 pill x 1 day, then stop METHYLPREDNISOLONE 64416229361 No Longer Active Parris Mora MD Active AZITHROMYCIN 250 MG TABS 2 po qd x 1 day, then 1 po qd x 4 days AZITHROMYCIN 10564596973 No Longer Active Perez Mora MD Active SYMBICORT 160-4.5 MCG/ACT AERO 2 puffs bid with rinse after 2011 BUDESONIDE-FORMOTEROL FUMARATE 20512970062 No Longer Active Perez Mora MD Active LYRICA 75 MG CAPS TAKE 1 CAPSULE BY MOUTH TWICE DAILY 2013 PREGABALIN 68615752861 No Longer Active Carlton Hu MD Active TOPAMAX 25 MG TABS 1 qHS x 1 week, then 1 BID x 1 week, then 1 qAM and 2 qHS x 1 week, then 2 BID (migraine prevention) TOPIRAMAT E 42420701622 No Longer Active Jerica FUENTES Active TOPAMAX 50 MG TABS take 1 tab po BID for migraines. 12/07/10 TOPIRAMATE 94439833691 No Longer Active Jerica FUENTES Ac tive TOPAMAX 100 MG TABS Take 1 tablet po bid TOPIRAMATE 4999 8712125 Active Elise Whitmore ATTENDANCE SECRETARY Active TRIAMCINOLONE ACETONIDE 0.1 % CREA apply three times daily prn r beatrice TRIAMCINOLONE ACETONIDE 28274956445 No Longer Active Carlton Hu MD Active PAXIL 40 MG TAB take 1 tab po qday for depression PAROXETINE HCL 51142433512 Active Carlton Hu MD Active CHERATUSSIN AC 100-10 MG/5ML SYRP 5ml po q6hr PRN Cough GUAIFENESIN-CODEINE 86333944679 No Longer Active Carlton Hu MD Active MEDROL (REYNA) 4 MG TABS 6 tabs on day 1, 5 tabs on d ay 2, 4 tabs on day 3, 3 tabs on day 4, 2 tabs on day 5, 1 tab on day 6 METHYLPREDNISOLONE 13479568995 No Longer Active Perez Mora MD Active AZITHROMYCIN 250 MG TABS 2 po qd x 1 day, then 1 po qd x 4 days AZITHROMYCIN 60820570988 No Longer Active Perez Mora MD Active PROPRANOLOL HCL 60 MG TABS 1 PO Q D PROPRANOL OL HCL 70137365315 No Longer Active Perez Mora MD Active CHERATUSSIN AC 100-10 MG/5ML SYRP take one tsp po Q 6hours prn c ough GUAIFENESIN-CODEINE 18433648248 No Longer Active Perez Means Active AUGMENTIN 875-125 MG TAB 1 tab by mouth twice daily with food 20 12/03/31 AMOXICILLIN-POT CLAVULANATE 01151893028 No Longer Active Chanel Mora MD Active CHERATUSSIN AC 100-10 MG/5ML SYRP 1 tsp by mouth every 4 hours as needed for cough GUAIFENESIN-CODEINE 66003996369 No Longer Activ e Hugo Restrepo MD Active ACETAMINOPHEN-CODEINE #3 300-30 MG TABS 1 PO Q 4-6 HRS PRN PAIN ACETAMINOPHEN-CODEINE 13053239617 No Longer Active Hugo Restrepo MD Active LEVAQUIN 500 MG TABS take one po QD LEVOFLOXACI N 85905768324 No Longer Active Griffin HERNANDEZ Active PREDNISONE 20 MG TAB Take 3 tabs daily for 3 days , 2 tabs daily for 3 days, 1 tab daily for 3 days, 1/2 tab daily for 3 days P REDNISONE 92203030527 No Longer Active Carlton Hu MD Active AVELOX 400 MG TABS 1 tab by mouth daily MOXIFLO XACIN HCL 87923898764 No Longer Active Carlton Hu MD Active CHERATUSSIN AC 100-10 MG/5ML SYRP 1 tsp by mouth every 4 hours as needed for cough GUAIFENESIN-CODEINE 79144442847 No Longer Activ e Hugo Restrepo MD Active AVELOX 400 MG TABS 1 tab by mouth daily MOXIFLO XACIN HCL 55634170134 No Longer Active Marcy De La Rosa MD PhD Active TERBINAFINE HCL 250 MG TABS 1 qDay TERBINAF INE HCL 62807015531 No Longer Active Marcy De La Rosa MD PhD Active CHERATUSSIN AC 100-10 MG/5ML SYRP 1 tsp by mouth every 4 hours as needed for cough GUAIFENESIN-CODEINE 13639091926 No Longer Activ e Marcy De La Rosa MD PhD Active AVELOX 400 MG TABS 1 tab by mouth daily MOXIFLO XACIN HCL 39494163119 No Longer Active Marcy De La Rosa MD PhD Active HYDROCODONE-ACETAMINOPHEN 5-325 MG TABS 1 po q 6hr PRN cough 201 05/09/16 HYDROCODONE-ACETAMINOPHEN 19098573932 No Longer Active Marcy De La Rosa MD PhD Active PREDNISONE 20 MG TAB 2 tabs daily for 3 days, 1 t ab daily for 3 days, 1/2 tab daily for 2 days PREDNISONE 67374570186 No Longer Active Carlton Hu MD Active CEFDINIR 300 MG CAPS by mouth twice a day CEFDI ODILIA 28151808022 No Longer Active Carlton Hu MD Active HYDROCHLOROTHIAZIDE 25 MG TABS 1 TAB PO DAILY H YDROCHLOROTHIAZIDE 84546559671 Active Carlton Hu MD Active ACETAMINOPHEN-CODEINE #3 300-30 MG TABS 1 tablet po q 4-6hrs prn pain ACETAMINOPHEN-CODEINE 00512171705 No Longer Active Ridge Bess DO Active ZITHROMAX 250 MG TAB 2 po today, then 1 po q days 2-5 AZITHROMYCIN 24706940999 No Longer Active Carlton Hu MD Acti ve CHERATUSSIN AC 100-10 MG/5ML SYRP take 1 tsp po q4-6 hours prn c ough GUAIFENESIN-CODEINE 64826725292 No Longer Active Carlton Hu MD Active ACETAMINOPHEN-CODEINE #3 300-30 MG TABS 1 PO Q 4-6 HR PRN PAIN 2 ACETAMINOPHEN-CODEINE 96437743163 No Longer Active Carlton rich MD Active LORTAB 7.5-500 MG/15ML ELIX 7.5 ml po q 4 hour prn cough HYDROCODONE-ACETAMINOPHEN 82658510485 No Longer Active Carlton Hu MD Active PREDNISONE 20 MG TAB 1 po bid 3 days, then 1 po q day 3 days 201 05/03/07 PREDNISONE 09986330362 No Longer Active Carlton Hu MD Active ELMIRON 100 MG CAPS 2 tablets in the am and 1 tablet at hs PENTOSAN POLYSULFATE SODIUM 77594966260 Active Carlton Hu MD Ac tive CEFDINIR 300 MG CAPS by mouth twice a day CEFDI ODILIA 75670577557 No Longer Active Carlton Hu MD Active CEFDINIR 300 MG CAPS by mouth twice a day CEFDI ODILIA 10158082251 No Longer Active Carlton Hu MD Active CEFDINIR 300 MG CAPS by mouth twice a day CEFDI ODILIA 29211567350 No Longer Active Carlton Hu MD Active TESSALON PERLES 100 MG CAP 1 tablet by mouth 3 times daily a s needed for cough BENZONATATE 99879414770 No Longer Active Carlton bustamante MD Active CEFDINIR 300 MG CAPS by mouth twice a day CEFDI ODILIA 52966283792 No Longer Active Carlton Hu MD Active ZITHROMAX Z-REYNA 250 MG TABS 2 today, then 1 daily for 4 days 201 04/09/17 AZITHROMYCIN 89656166769 No Longer Active Hugo Restrepo MD Active TESSALON PERLES 100 MG CAP 1 tablet by mouth 3 times daily a s needed for cough TESSALON PERLES 100 MG CAP 637493 BENZONATATE I nactive PREDNISONE 20 MG TAB 1 po bid 3 days, then 1 po q day 3 days 201 05/03/07 PREDNISONE 20 MG TAB 028633 PREDNISONE Inactive LORTAB 7.5-500 MG/15ML ELIX 7.5 ml po q 4 hour prn cough LORTAB 7.5-500 MG/15ML ELIX HYDROCODONE-ACETAMINOPHEN Inacti ve ACETAMINOPHEN-CODEINE #3 300-30 MG TABS 1 PO Q 4-6 HR PRN PAIN 2 ACETAMINOPHEN-CODEINE #3 300-30 MG TABS ACETAMIN OPHEN-CODEINE Inactive CHERATUSSIN AC 100-10 MG/5ML SYRP take 1 tsp po q4-6 hours prn c ough CHERATUSSIN AC 100-10 MG/5ML SYRP 384852 GUAIFENESIN-CO DEINE Inactive ACETAMINOPHEN-CODEINE #3 300-30 MG TABS 1 tablet po q 4-6hrs prn pain ACETAMINOPHEN-CODEINE #3 300-30 MG TABS ACETAMIN OPHEN-CODEINE Inactive HYDROCODONE-ACETAMINOPHEN 5-325 MG TABS 1 po q 6hr PRN cough 201 05/09/16 HYDROCODONE-ACETAMINOPHEN 5-325 MG TABS 058591 HYDROCODONE-ACETAMINOPHEN Inactive AVELOX 400 MG TABS 1 tab by mouth daily A VELOX 400 MG TABS 674379 MOXIFLOXACIN HCL Inactive CHERATUSSIN AC 100-10 MG/5ML SYRP 1 tsp by mouth every 4 hours as needed for cough CHERATUSSIN AC 100-10 MG/5ML SYRP 470262 GUAIFENESIN-CODEINE Inactive TERBINAFINE HCL 250 MG TABS 1 qDay TERBINAFINE HCL 250 MG TABS 190010 TERBINAFINE HCL Inactive CHERATUSSIN AC 100-10 MG/5ML SYRP 1 tsp by mouth every 4 hours as needed for cough CHERATUSSIN AC 100-10 MG/5ML SYRP 241688 GUAIFENESIN-CODEINE Inactive ACETAMINOPHEN-CODEINE #3 300-30 MG TABS 1 PO Q 4-6 HRS PRN PAIN ACETAMINOPHEN-CODEINE #3 300-30 MG TABS ACETAMINOPHEN-CODEIN E Inactive CHERATUSSIN AC 100-10 MG/5ML SYRP 1 tsp by mouth every 4 hours as needed for cough CHERATUSSIN AC 100-10 MG/5ML SYRP 928381 GUAIFENESIN-CODEINE Inactive AUGMENTIN 875-125 MG TAB 1 tab by mouth twice daily with food 20 12/03/31 AUGMENTIN 875-125 MG TAB 422462 AMOXICILLIN-POT CLAVULA EFE Inactive CHERATUSSIN AC 100-10 MG/5ML SYRP take one tsp po Q 6hours prn c ough CHERATUSSIN AC 100-10 MG/5ML SYRP 505214 GUAIFENESIN-CO DEINE Inactive PROPRANOLOL HCL 60 MG TABS 1 PO Q D P ROPRANOLOL HCL 60 MG TABS 575240 PROPRANOLOL HCL Inactive TOPAMAX 50 MG TABS take 1 tab po BID for migraines. 12/07/10 TOPAMAX 50 MG TABS 679902 TOPIRAMATE Inactive TOPAMAX 25 MG TABS 1 qHS x 1 week, then 1 BID x 1 week, then 1 qAM and 2 qHS x 1 week, then 2 BID (migraine prevention) TOPAMAX 2 5 MG TABS 070843 TOPIRAMATE Inactive LYRICA 75 MG CAPS TAKE 1 CAPSULE BY MOUTH TWICE DAILY LYRICA 75 MG CAPS PREGABALIN Inactive SYMBICORT 160-4.5 MCG/ACT AERO 2 puffs bid with rinse after 2011 SYMBICORT 160-4.5 MCG/ACT AERO BUDESONIDE-FORMOT SÁNCHEZ FUMARATE Inactive PROMETHAZINE-CODEINE 6.25-10 MG/5ML SYRP 1 tsp by mouth ever y 8 hours prn cough PROMETHAZINE-CODEINE 6.25-10 MG/5ML SYRP 640596 PROMETHAZINE-CODEINE Inactive CYMBALTA 30 MG CPEP 1 cap by mouth daily CYMBALTA 30 MG CPEP 690471 DULOXETINE HCL Inactive PREMARIN 0.625 MG TABS TAKE 1 TAB BY MOUTH DAILY 07/25 PREMARIN 0.625 MG TABS ESTROGENS CONJUGATED Inactive CHERATUSSIN AC 100-10 MG/5ML SYRP 1 tsp by mouth every 4 hours as needed for cough CHERATUSSIN AC 100-10 MG/5ML SYRP 329351 GUAIFENESIN-CODEINE Inactive PROMETHAZINE-CODEINE 6.25-10 MG/5ML SYRP 1 tsp by mout h every 6 hours if needed for cough PROMETHAZINE-CODEINE 6.25-10 MG/5ML SYRP 424360 PROMETHAZINE-CODEINE Inactive CHERATUSSIN AC 100-10 MG/5ML SYRP 1 tsp by mouth every 4 hours as needed for cough CHERATUSSIN AC 100-10 MG/5ML SYRP 143140 GUAIFENESIN-CODEINE Inactive FLUTICASONE PROPIONATE 50 MCG/ACT SUSP 1 to 2 sprays each no stril daily FLUTICASONE PROPIONATE 50 MCG/ACT SUSP 7254693 FLUTICASONE PROPIONATE Inactive PREDNISONE 20 MG ORAL TABS 3 tab PO qd x 2d, 2 tab PO qd x 2d, 1 tab PO qd x 2d, 1/2 tab PO qd x 2d PREDNISONE 20 MG ORAL TABS 584753 PREDNISONE Inactive LEVOFLOXACIN 500 MG ORAL TABS 1 tab PO daily x 10 days LEVOFLOXACIN 500 MG ORAL TABS 781912 LEVOFLOXACIN Inactive CYCLOBENZAPRINE HCL 10 MG TABS 1 tablet by mouth BID prn had cherelle n CYCLOBENZAPRINE HCL 10 MG TABS 197814 CYCLOBENZAPRINE H CL Inactive ZOCOR 40 MG TAB 1 tab by mouth daily ZOCOR 40 M G TAB 669837 SIMVASTATIN Inactive TUSSIONEX PENNKINETIC ER 10-8 MG/5ML [...] empty FLUTICASONE PROPIONATE 50 MCG/ACT SUSP 17 99856 FLUTICASONE PROPIONATE Inactive TUSSIONEX PENNKINETIC ER 10-8 [...] 201 04/09/17 ZITHROMAX Z-REYNA 250 MG TABS 4927455 AZITHROMYCIN Inac tive CEFDINIR 300 MG CAPS [...] q days 2-5 ZITHROMAX 250 MG TAB 7654950 AZITHROMYCIN Inactive CEFDINIR 300 MG CAPS by mouth twice a day CEFDINIR 300 MG CAPS 20020704 CEFDINIR Inactive PREDNISONE 20 MG TAB 2 tabs daily for 3 days, 1 t ab daily for 3 days, 1/2 tab daily for 2 days PREDNISONE 20 MG TAB 022581 PREDNISON E Inactive AVELOX 400 MG TABS 1 tab by mouth daily A VELOX 400 MG TABS 867206 MOXIFLOXACIN HCL Inactive AVELOX 400 MG TABS 1 tab by mouth daily A VELOX 400 MG TABS 103408 MOXIFLOXACIN HCL Inactive PREDNISONE 20 MG TAB Take 3 tabs daily for 3 days , 2 tabs daily for 3 days, 1 tab daily for 3 days, 1/2 tab daily for 3 days PREDNISONE 20 MG TAB 200835 PREDNISONE Inactive LEVAQUIN 500 MG TABS take one po QD LEVAQUIN 50 0 MG TABS 040263 LEVOFLOXACIN Inactive AZITHROMYCIN 250 MG TABS 2 po qd x 1 day, then 1 po qd x 4 days AZITHROMYCIN 250 MG TABS 0835085 AZITHROMYCIN Inactiv e MEDROL (REYNA) 4 MG TABS 6 tabs on day 1, 5 tabs on d ay 2, 4 tabs on day 3, 3 tabs on day 4, 2 tabs on day 5, 1 tab on day 6 MEDROL (REYNA) 4 MG TABS 557838 METHYLPREDNISOLONE Inactive CHERATUSSIN AC 100-10 MG/5ML SYRP 5ml po q6hr PRN Cough CHERATUSSIN AC 100-10 MG/5ML SYRP 839854 GUAIFENESIN-CODEINE Inacti ve TRIAMCINOLONE ACETONIDE 0.1 % CREA apply three times daily prn r beatrice TRIAMCINOLONE ACETONIDE 0.1 % CREA 7249962 TRIAMCINOLONE ACETONIDE Inactive AZITHROMYCIN 250 MG TABS 2 po qd x 1 day, then 1 po qd x 4 days AZITHROMYCIN 250 MG TABS 7922923 AZITHROMYCIN Inactiv e MEDROL (REYNA) 4 MG TABS 6 pills x 1 day, then 5 pill s x 1 day then 4 pills x 1 day, then 3 pills x 1 day, then 2 pills x 1 day, then 1 pill x 1 day, then stop MEDROL (REYNA) 4 MG TABS 555130 METHYLPREDNISOLONE Inactive AMOXICILLIN 500 MG CAP 1 tab by mouth 3 times daily x 10 days 20 13/03/08 AMOXICILLIN 500 MG CAP 368540 AMOXICILLIN Inactive AMOXICILLIN 500 MG CAP 1 tab by mouth 3 times daily x 10 days 20 14/04/28 AMOXICILLIN 500 MG CAP 265465 AMOXICILLIN Inactive ZITHROMAX 250 MG TAB 2 po today, then 1 po q days 2-5 ZITHROMAX 250 MG TAB 7244811 AZITHROMYCIN Inactive AUGMENTIN 875-125 MG TAB 1 po BID x 10 days AUGMENTIN 875- 125 MG TAB 609602 AMOXICILLIN-POT CLAVULANATE Inactive ZITHROMAX Z-REYNA 250 MG TABS 2 today, then 1 daily for 4 days 201 08/07/20 ZITHROMAX Z-REYNA 250 MG TABS 1127318 AZITHROMYCIN Inac tive ZITHROMAX 250 MG TAB 2 po today, then 1 po q days 2-5 ZITHROMAX 250 MG TAB 6695122 AZITHROMYCIN Inactive ZITHROMAX Z-REYNA 250 MG TABS 2 today, then 1 daily for 4 days 201 08/30/03 ZITHROMAX Z-REYNA 250 MG TABS 7251502 AZITHROMYCIN Inac tive CEFDINIR 300 MG CAPS 1 po BID x 10 days C EFDINIR 300 MG CAPS 20020704 CEFDINIR Inactive ZITHROMAX 250 MG TAB 2 po today, then 1 po q days 2-5 ZITHROMAX 250 MG TAB 6248032 AZITHROMYCIN Inactive LEVAQUIN 500 MG TAB 1 tablet by mouth daily LEVAQUIN 500 MG TAB 032868 LEVOFLOXACIN Inactive SINGULAIR 10 MG TABS 1 po qday for allergies 2 SINGULAIR 10 MG TABS 256523 MONTELUKAST SODIUM Inactive AMOXICILLIN 500 MG CAPS 2 po BID x 10 days AMOXICILLIN 500 MG CAPS 129614 AMOXICILLIN Inactive PREDNISONE 20 MG TAB 2 tabs daily for 3 days, 1 t ab daily for 3 days, 1/2 tab daily for 2 days PREDNISONE 20 MG TAB 223702 PREDNISON E Inactive ZITHROMAX Z-REYNA 250 MG TABS 2 today, then 1 daily for 4 days 201 09/29/14 ZITHROMAX Z-REYNA 250 MG TABS 5679600 AZITHROMYCIN Inac tive PREDNISONE 20 MG TAB 2 tabs daily for 3 days, 1 t ab daily for 3 days, 1/2 tab daily for 2 days PREDNISONE 20 MG TAB 984772 PREDNISON E Inactive ZITHROMAX 250 MG TAB 2 po today, then 1 po q days 2-5 ZITHROMAX 250 MG TAB 7366147 AZITHROMYCIN Inactive Vital Signs Date Name Value [...] - Chem istry sodium, serum 132 mmol/L 614-511 8095/07/12 potassium, serum 2.7 mmol/L 3.5-5.2 chloride, serum 93 mmol/L 98-107 carbon dioxide, venous blood 30.8 mmol/L 21.0-32 .0 blood glucose 107 mg/dL 65-110 calcium, serum 9.3 mg/dL 8.5-10.1 urea nitrogen, blood 12 mg/dL 7-18 creatinine, serum 1.00 mg/dL 0.60-1.30 sodium, serum 142 mmol/L 949-936 0809/07/17 potassium, serum 4.2 mmol/L 3.5-5.2 chloride, serum 106 mmol/L 98-107 carbon dioxide, venous blood 29.9 mmol/L 21.0-32 .0 blood glucose 108 mg/dL 65-110 calcium, serum 9.1 mg/dL 8.5-10.1 urea nitrogen, blood 11 mg/dL 7-18 creatinine, serum 0.81 mg/dL 0.60-1.30 Lab Report: Rapid Strep - Lab Microbial identification kit, rapid strep method Negative Negative Encounters Code Encounter Date Provider Facility CPT-80151 Level 3 Est. Patient 12:17:50 CDT Hugo Restrepo MD [facility] CPT-62752 Level 3 Est. Patient 13:42:38 CDT [facility] CPT-54713 Level 3 Est. Patient 13:23:51 CDT Diya cobian [facility] CPT-66911 Level 3 Est. Patient 14:22:19 SECURITY THREAT ANALYST Diya cobian [facility] CPT-35322 Level 3 Est. Patient 10:11:46 CDT Carlton rich MD [facility] CPT-06974 Level 3 Est. Patient 17:29:43 CDT [facility] CPT-88694 Level 3 Est. Patient 11:58:06 CDT [facility] CPT-70035 Level 4 Est. Patient 14:36:51 CDT Carlton rich MD [facility]-62454 Level 3 Est. Patient 18:16:00 SECURITY THREAT ANALYST Blaine Freeman [facility]-08413 Level 3 Est. Patient 09:45:49 SECURITY THREAT ANALYST Carlton rich MD [facility]-11821 Level 3 Est. Patient 13:19:20 CDT Carlton rich MD [facility]-05621 Level 3 Est. Patient 13:06:43 CDT Ridge tam DO [facility]-44292 Level 3 Est. Patient 10:03:07 CDT Perez Mora MD [facility]-63155 Level 3 Est. Patient 19:50:35 SECURITY THREAT ANALYST Carlton rich MD [facility]-65825 Level 4 Est. Patient 18:05:01 SECURITY THREAT ANALYST Carlton rich MD [facility]-90069 Level 3 Est. Patient 10:45:55 SECURITY THREAT ANALYST Hugo Restrepo MD [facility]-53351 Level 3 Est. Patient 14:12:49 CDT Griffin lincoln [facility] [place]-[address]52 Level 3 Est. Patient 17:37:24 CDT Carlton rich MD [facility]-62413 Level 3 Est. Patient 16:51:54 CDT Carlton rich MD [facility]-99541 Level 3 Est. Patient 12:18:11 CDT Hugo Restrepo MD [facility]-52782 Level 3 Est. Patient 11:30:25 CDT Marcy crisostomo MD, PhD [facility]-67226 Level 3 Est. Patient 12:00:47 SECURITY THREAT ANALYST Carlton rich MD [facility] CPT-26298 Level 3 Est. Patient 16:31:06 SECURITY THREAT ANALYST Carlton rich MD [facility] CPT-97823 Level 3 Est. Patient 16:23:24 SECURITY THREAT ANALYST Ridge tam [facility] CPT-79015 Level 3 Est. Patient 12:34:12 CDT Carlton rich MD [facility] CPT-06010 Level 2 Est. Patient 15:43:33 CDT Robi armstrong MD [facility] CPT-11923 Level 4 Est. Patient 14:04:44 CDT Carlton rich MD [facility] CPT-47327 Level 3 Est. Patient 05:47:59 CDT Ridge tam [facility] CPT-50872 Level 3 Est. Patient 13:12:53 SECURITY THREAT ANALYST Carlton rich MD [facility] CPT-62621 Level 3 Est. Patient 14:26:53 CDT Hugo Restrepo MD [facility] Procedures Code Procedure Name Date Entry Date Standard Desc ription CPT-J1040 Depo Medrol 80 mg (Methyl Prednisolone A cetate) 10:42:44 CDT CPT-J1100 Decadron 8mg (Dexamethasone) 10:42:44 CDT 2 CPT-J0696 Rocephin 1gm Inj Solr 14:32:13 CDT CPT-J1020 Depo Medrol 60 mg (Methyl Prednisolone A cetate) 14:32:13 CDT CPT-J1100 Decadron 6mg (Dexamethasone) 14:32:13 CDT 2 CPT-66775 Hip bilat min 2V w AP pelvis 13:16:20 CDT 2 CPT-83200 Pelvis only 13:07:33 CDT CPT-33524 Spec Collection and Handling Fee 11:25:12 C DT CPT-33159 Fluzone Quadrivalent Intramuscular Suspe nsion 0.5 ML 14:31:55 CDT CPT-75006 Abx/Therapy Injection 13:28:47 SECURITY THREAT ANALYST CPT-J2930 Solu Medrol 125 mg (Methyl Prednisolone Sodium Succinate) 12:00:47 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
--- OUTSIDE RECORDS SUMMARY | 2019-10-08 08:27 | XMS REPORT | Clinical Summary ---
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 Unspecified sinusitis (chronic) Bronchitis-Acute 466.0 Active Carlton [...] Generic Name NDC Status Provider Patient Instruction XANAX 0.5 MG TABS one tablet by mouth daily prn anxiety ALPRAZOLAM [id number] Active Carlton Hu MD Active CYMBALTA 30 MG CPEP 1 cap by mouth daily for depression DULOXETINE HCL 26048859709 Active Carlton Hu MD Active CEFDINIR 300 MG CAPS 1 po BID x 10 days CEFDINI R 77746040854 No Longer Active Carlton Hu MD Active ZOCOR 40 MG TAB 1 tab by mouth daily SIMVASTATI N 69367409936 No Longer Active Carlton Hu MD Active CYCLOBENZAPRINE HCL 10 MG TABS 1 tablet by mouth BID prn had cherelle n CYCLOBENZAPRINE HCL 97464811971 No Longer Active Carlton Hu MD Active LEVOFLOXACIN 500 MG ORAL TABS 1 tab PO daily x 10 days LEVOFLOXACIN 94556686284 No Longer Active Carlton Hu MD Acti ve PREDNISONE 20 MG ORAL TABS 3 tab PO qd x 2d, 2 tab PO qd x 2d, 1 tab PO qd x 2d, 1/2 tab PO qd x 2d PREDNISONE 02026648287 No Longer Active Carlton Hu MD Active TUSSIONEX PENNKINETIC ER 10-8 MG/5ML ORAL LQCR 5 mL PO q 12 hrs PRN cough HYDROCOD POLST-CHLORPHEN POLST 88409030108 Active Carlton Hu MD Active FLUTICASONE PROPIONATE 50 MCG/ACT SUSP 1 to 2 sprays each no stril daily FLUTICASONE PROPIONATE 18061861234 No Longer Active T jaz HERNANDEZ Active CHERATUSSIN AC 100-10 MG/5ML SYRP 1 tsp by mouth every 4 hours as needed for cough GUAIFENESIN-CODEINE 13490719523 No Longer Activ e Blaine HERNANDEZ Active PROMETHAZINE-CODEINE 6.25-10 MG/5ML SYRP 1 tsp by mout h every 6 hours if needed for cough PROMETHAZINE-CODEINE 75941350097 No Long er Active Blaine HERNANDEZ Active CHERATUSSIN AC 100-10 MG/5ML SYRP 1 tsp by mouth every 4 hours as needed for cough GUAIFENESIN-CODEINE 84785049478 No Longer Activ Jorge Luis HERNANDEZ Active ZITHROMAX Z-REYNA 250 MG TABS 2 today, then 1 daily for 4 days 201 08/30/03 AZITHROMYCIN 67988996771 No Longer Active Columba Raida Act nael ZITHROMAX 250 MG TAB 2 po today, then 1 po q days 2-5 AZITHROMYCIN 17221089011 No Longer Active Carlton Hu MD Acti ve ZITHROMAX Z-REYNA 250 MG TABS 2 today, then 1 daily for 4 days 201 08/07/20 AZITHROMYCIN 43212638363 No Longer Active Columba Raida Act nael AUGMENTIN 875-125 MG TAB 1 po BID x 10 days AMOXICILLIN- POT CLAVULANATE 58856457344 No Longer Active Diya De Guzman APRN Active ZITHROMAX 250 MG TAB 2 po today, then 1 po q days 2-5 AZITHROMYCIN 20255872684 No Longer Active Carlton Hu MD Acti ve TRAMADOL HCL 50 MG TABS 1 po tid with ES Tylenol TRAMADOL HCL 52841142734 Active Carlton Hu MD Active PREMARIN 0.625 MG TABS TAKE 1 TAB BY MOUTH DAILY 07/25 ESTROGENS CONJUGATED 42250479813 No Longer Active Ridge Bess DO Active CYMBALTA 30 MG CPEP 1 cap by mouth daily DULOXE SNEHA HCL 20972973789 No Longer Active Ridge Bess DO Active AMOXICILLIN 500 MG CAP 1 tab by mouth 3 times daily x 10 days 20 14/04/28 AMOXICILLIN 26753276296 No Longer Active Carlton Hu MD Active AMOXICILLIN 500 MG CAP 1 tab by mouth 3 times daily x 10 days 20 13/03/08 AMOXICILLIN 52852579712 No Longer Active Carlton Hu MD Active PROMETHAZINE-CODEINE 6.25-10 MG/5ML SYRP 1 tsp by mouth ever y 8 hours prn cough PROMETHAZINE-CODEINE 30640438991 No Longer Active Robert Hu MD Active MEDROL (REYNA) 4 MG TABS 6 pills x 1 day, then 5 pill s x 1 day then 4 pills x 1 day, then 3 pills x 1 day, then 2 pills x 1 day, then 1 pill x 1 day, then stop METHYLPREDNISOLONE 42493235175 No Longer Active Parris Mora MD Active AZITHROMYCIN 250 MG TABS 2 po qd x 1 day, then 1 po qd x 4 days AZITHROMYCIN 40031161649 No Longer Active Perez Mora MD Active SYMBICORT 160-4.5 MCG/ACT AERO 2 puffs bid with rinse after 2011 BUDESONIDE-FORMOTEROL FUMARATE 91002183436 No Longer Active Perez Mora MD Active LYRICA 75 MG CAPS TAKE 1 CAPSULE BY MOUTH TWICE DAILY 2013 PREGABALIN 87377951382 No Longer Active Carlton Hu MD Active LYRICA 100 MG CAPS Take 1 tab po BID for fibromyalgia PREGABALIN 88220314390 Active Carlton Hu MD Active TOPAMAX 25 MG TABS 1 qHS x 1 week, then 1 BID x 1 week, then 1 qAM and 2 qHS x 1 week, then 2 BID (migraine prevention) TOPIRAMAT E 12631382614 No Longer Active Jerica FUENTES Active TOPAMAX 50 MG TABS take 1 tab po BID for migraines. 12/07/10 TOPIRAMATE 16433230261 No Longer Active Jerica Osei RMA Ac tive TOPAMAX 100 MG TABS Take 1 tablet po bid TOPIRAMATE 4999 6752570 Active Carlton Hu MD Active TRIAMCINOLONE ACETONIDE 0.1 % CREA apply three times daily prn r beatrice TRIAMCINOLONE ACETONIDE 73632074388 No Longer Active Carlton Hu MD Active PAXIL 40 MG TAB take 1 tab po qday for depression PAROXETINE HCL 77242723779 Active Elise Whitmore APRN Active CHERATUSSIN AC 100-10 MG/5ML SYRP 5ml po q6hr PRN Cough GUAIFENESIN-CODEINE 67603824890 No Longer Active Carlton Hu MD Active MEDROL (REYNA) 4 MG TABS 6 tabs on day 1, 5 tabs on d ay 2, 4 tabs on day 3, 3 tabs on day 4, 2 tabs on day 5, 1 tab on day 6 METHYLPREDNISOLONE 69040792461 No Longer Active Perez Mora MD Active AZITHROMYCIN 250 MG TABS 2 po qd x 1 day, then 1 po qd x 4 days AZITHROMYCIN 84310376639 No Longer Active Perez Mora MD Active PROPRANOLOL HCL 60 MG TABS 1 PO Q D PROPRANOL OL HCL 77818696008 No Longer Active Perez Mora MD Active CHERATUSSIN AC 100-10 MG/5ML SYRP take one tsp po Q 6hours prn c ough GUAIFENESIN-CODEINE 47618348434 No Longer Active Perez Means Active AUGMENTIN 875-125 MG TAB 1 tab by mouth twice daily with food 20 12/03/31 AMOXICILLIN-POT CLAVULANATE 64145112855 No Longer Active Chanel Mora MD Active CHERATUSSIN AC 100-10 MG/5ML SYRP 1 tsp by mouth every 4 hours as needed for cough GUAIFENESIN-CODEINE 09094840153 No Longer Activ e Hugo Restrepo MD Active ACETAMINOPHEN-CODEINE #3 300-30 MG TABS 1 PO Q 4-6 HRS PRN PAIN ACETAMINOPHEN-CODEINE 87364047717 No Longer Active Hugo Restrepo MD Active LEVAQUIN 500 MG TABS take one po QD LEVOFLOXACI N 82359254915 No Longer Active Griffin HERNANDEZ Active PREDNISONE 20 MG TAB Take 3 tabs daily for 3 days , 2 tabs daily for 3 days, 1 tab daily for 3 days, 1/2 tab daily for 3 days P REDNISONE 19945482299 No Longer Active Carlton Hu MD Active AVELOX 400 MG TABS 1 tab by mouth daily MOXIFLO XACIN HCL 52422189303 No Longer Active Carlton Hu MD Active CHERATUSSIN AC 100-10 MG/5ML SYRP 1 tsp by mouth every 4 hours as needed for cough GUAIFENESIN-CODEINE 54428332419 No Longer Activ e Hugo Restrepo MD Active AVELOX 400 MG TABS 1 tab by mouth daily MOXIFLO XACIN HCL 50500259816 No Longer Active Marcy De La Rosa MD PhD Active TERBINAFINE HCL 250 MG TABS 1 qDay TERBINAF INE HCL 45397542936 No Longer Active Marcy De La Rosa MD PhD Active CHERATUSSIN AC 100-10 MG/5ML SYRP 1 tsp by mouth every 4 hours as needed for cough GUAIFENESIN-CODEINE 35296152162 No Longer Activ e Marcy De La Rosa MD PhD Active AVELOX 400 MG TABS 1 tab by mouth daily MOXIFLO XACIN HCL 46801410290 No Longer Active Marcy De La Rosa MD PhD Active HYDROCODONE-ACETAMINOPHEN 5-325 MG TABS 1 po q 6hr PRN cough 201 05/09/16 HYDROCODONE-ACETAMINOPHEN 58795240600 No Longer Active Marcy De La Rosa MD PhD Active PREDNISONE 20 MG TAB 2 tabs daily for 3 days, 1 t ab daily for 3 days, 1/2 tab daily for 2 days PREDNISONE 54759328742 No Longer Active Carlton Hu MD Active CEFDINIR 300 MG CAPS by mouth twice a day CEFDI ODILIA 51856592955 No Longer Active Carlton Hu MD Active HYDROCHLOROTHIAZIDE 25 MG TABS 1 TAB PO DAILY H YDROCHLOROTHIAZIDE 06808469691 Active Carlton Hu MD Active ACETAMINOPHEN-CODEINE #3 300-30 MG TABS 1 tablet po q 4-6hrs prn pain ACETAMINOPHEN-CODEINE 99551626881 No Longer Active Ridge Bess DO Active ZITHROMAX 250 MG TAB 2 po today, then 1 po q days 2-5 AZITHROMYCIN 13317856675 No Longer Active Carlton Hu MD Acti ve CHERATUSSIN AC 100-10 MG/5ML SYRP take 1 tsp po q4-6 hours prn c ough GUAIFENESIN-CODEINE 10208574213 No Longer Active Carlton Hu MD Active ACETAMINOPHEN-CODEINE #3 300-30 MG TABS 1 PO Q 4-6 HR PRN PAIN 2 ACETAMINOPHEN-CODEINE 40238712176 No Longer Active Carlton rich MD Active LORTAB 7.5-500 MG/15ML ELIX 7.5 ml po q 4 hour prn cough HYDROCODONE-ACETAMINOPHEN 83838739338 No Longer Active Carlton Hu MD Active PREDNISONE 20 MG TAB 1 po bid 3 days, then 1 po q day 3 days 201 05/03/07 PREDNISONE 36060354907 No Longer Active Carlton Hu MD Active ELMIRON 100 MG CAPS 2 tablets in the am and 1 tablet at hs PENTOSAN POLYSULFATE SODIUM 18712435033 Active Carlton Hu MD Ac tive CEFDINIR 300 MG CAPS by mouth twice a day CEFDI ODILIA 82812513648 No Longer Active Carlton Hu MD Active CEFDINIR 300 MG CAPS by mouth twice a day CEFDI ODILIA 48454216369 No Longer Active Carlton Hu MD Active CEFDINIR 300 MG CAPS by mouth twice a day CEFDI ODILIA 13030443478 No Longer Active Carlton Hu MD Active TESSALON PERLES 100 MG CAP 1 tablet by mouth 3 times daily a s needed for cough BENZONATATE 44194248722 No Longer Active Carlton bustamante MD Active CEFDINIR 300 MG CAPS by mouth twice a day CEFDI ODILIA 40274740267 No Longer Active Carlton Hu MD Active ZITHROMAX Z-REYNA 250 MG TABS 2 today, then 1 daily for 4 days 201 04/09/17 AZITHROMYCIN 81435777949 No Longer Active Hugo Restrepo MD Active TESSALON PERLES 100 MG CAP 1 tablet by mouth 3 times daily a s needed for cough TESSALON PERLES 100 MG CAP 020741 BENZONATATE I nactive PREDNISONE 20 MG TAB 1 po bid 3 days, then 1 po q day 3 days 201 05/03/07 PREDNISONE 20 MG TAB 124763 PREDNISONE Inactive LORTAB 7.5-500 MG/15ML ELIX 7.5 ml po q 4 hour prn cough LORTAB 7.5-500 MG/15ML ELIX HYDROCODONE-ACETAMINOPHEN Inacti ve ACETAMINOPHEN-CODEINE #3 300-30 MG TABS 1 PO Q 4-6 HR PRN PAIN 2 ACETAMINOPHEN-CODEINE #3 300-30 MG TABS 804168 ACETAMIN OPHEN-CODEINE Inactive CHERATUSSIN AC 100-10 MG/5ML SYRP take 1 tsp po q4-6 hours prn c ough CHERATUSSIN AC 100-10 MG/5ML SYRP 089995 GUAIFENESIN-CO DEINE Inactive ACETAMINOPHEN-CODEINE #3 300-30 MG TABS 1 tablet po q 4-6hrs prn pain ACETAMINOPHEN-CODEINE #3 300-30 MG TABS 577262 ACETAMIN OPHEN-CODEINE Inactive HYDROCODONE-ACETAMINOPHEN 5-325 MG TABS 1 po q 6hr PRN cough 201 05/09/16 HYDROCODONE-ACETAMINOPHEN 5-325 MG TABS 091287 HYDROCODONE-ACETAMINOPHEN Inactive AVELOX 400 MG TABS 1 tab by mouth daily A VELOX 400 MG TABS 115105 MOXIFLOXACIN HCL Inactive CHERATUSSIN AC 100-10 MG/5ML SYRP 1 tsp by mouth every 4 hours as needed for cough CHERATUSSIN AC 100-10 MG/5ML SYRP 064426 GUAIFENESIN-CODEINE Inactive TERBINAFINE HCL 250 MG TABS 1 qDay TERBINAFINE HCL 250 MG TABS 664832 TERBINAFINE HCL Inactive CHERATUSSIN AC 100-10 MG/5ML SYRP 1 tsp by mouth every 4 hours as needed for cough CHERATUSSIN AC 100-10 MG/5ML SYRP 333447 GUAIFENESIN-CODEINE Inactive ACETAMINOPHEN-CODEINE #3 300-30 MG TABS 1 PO Q 4-6 HRS PRN PAIN ACETAMINOPHEN-CODEINE #3 300-30 MG TABS 708438 ACETAMINOPHEN-CODEIN E Inactive CHERATUSSIN AC 100-10 MG/5ML SYRP 1 tsp by mouth every 4 hours as needed for cough CHERATUSSIN AC 100-10 MG/5ML SYRP 127217 GUAIFENESIN-CODEINE Inactive AUGMENTIN 875-125 MG TAB 1 tab by mouth twice daily with food 20 12/03/31 AUGMENTIN 875-125 MG TAB 556983 AMOXICILLIN-POT CLAVULA EFE Inactive CHERATUSSIN AC 100-10 MG/5ML SYRP take one tsp po Q 6hours prn c ough CHERATUSSIN AC 100-10 MG/5ML SYRP 208773 GUAIFENESIN-CO DEINE Inactive PROPRANOLOL HCL 60 MG TABS 1 PO Q D P ROPRANOLOL HCL 60 MG TABS 791178 PROPRANOLOL HCL Inactive TOPAMAX 50 MG TABS take 1 tab po BID for migraines. 12/07/10 TOPAMAX 50 MG TABS 268448 TOPIRAMATE Inactive TOPAMAX 25 MG TABS 1 qHS x 1 week, then 1 BID x 1 week, then 1 qAM and 2 qHS x 1 week, then 2 BID (migraine prevention) TOPAMAX 2 5 MG TABS 744619 TOPIRAMATE Inactive LYRICA 75 MG CAPS TAKE 1 CAPSULE BY MOUTH TWICE DAILY LYRICA 75 MG CAPS PREGABALIN Inactive SYMBICORT 160-4.5 MCG/ACT AERO 2 puffs bid with rinse after 2011 SYMBICORT 160-4.5 MCG/ACT AERO BUDESONIDE-FORMOT SÁNCHEZ FUMARATE Inactive PROMETHAZINE-CODEINE 6.25-10 MG/5ML SYRP 1 tsp by mouth ever y 8 hours prn cough PROMETHAZINE-CODEINE 6.25-10 MG/5ML SYRP 216092 PROMETHAZINE-CODEINE Inactive CYMBALTA 30 MG CPEP 1 cap by mouth daily CYMBALTA 30 MG CPEP 407485 DULOXETINE HCL Inactive PREMARIN 0.625 MG TABS TAKE 1 TAB BY MOUTH DAILY 07/25 PREMARIN 0.625 MG TABS ESTROGENS CONJUGATED Inactive CHERATUSSIN AC 100-10 MG/5ML SYRP 1 tsp by mouth every 4 hours as needed for cough CHERATUSSIN AC 100-10 MG/5ML SYRP 229277 GUAIFENESIN-CODEINE Inactive PROMETHAZINE-CODEINE 6.25-10 MG/5ML SYRP 1 tsp by mout h every 6 hours if needed for cough PROMETHAZINE-CODEINE 6.25-10 MG/5ML SYRP 227380 PROMETHAZINE-CODEINE Inactive CHERATUSSIN AC 100-10 MG/5ML SYRP 1 tsp by mouth every 4 hours as needed for cough CHERATUSSIN AC 100-10 MG/5ML SYRP 699771 GUAIFENESIN-CODEINE Inactive FLUTICASONE PROPIONATE 50 MCG/ACT SUSP 1 to 2 sprays each no stril daily FLUTICASONE PROPIONATE 50 MCG/ACT SUSP 510725 FLUTICASONE PROPIONATE Inactive PREDNISONE 20 MG ORAL TABS 3 tab PO qd x 2d, 2 tab PO qd x 2d, 1 tab PO qd x 2d, 1/2 tab PO qd x 2d PREDNISONE 20 MG ORAL TABS 536282 PREDNISONE Inactive LEVOFLOXACIN 500 MG ORAL TABS 1 tab PO daily x 10 days LEVOFLOXACIN 500 MG ORAL TABS 445411 LEVOFLOXACIN Inactive CYCLOBENZAPRINE HCL 10 MG TABS 1 tablet by mouth BID prn had cherelle n CYCLOBENZAPRINE HCL 10 MG TABS 049287 CYCLOBENZAPRINE H CL Inactive ZOCOR 40 MG TAB 1 tab by mouth daily ZOCOR 40 M G TAB 361011 SIMVASTATIN Inactive ZITHROMAX Z-REYNA 250 MG TABS 2 today, then 1 daily for 4 days 201 04/09/17 ZITHROMAX Z-REYNA 250 MG TABS 7971593 AZITHROMYCIN Inac tive CEFDINIR 300 MG CAPS by mouth twice a day CEFDINIR 300 MG CAPS 20020704 CEFDINIR Inactive CEFDINIR 300 MG CAPS by mouth twice a day CEFDINIR 300 MG CAPS 20020704 CEFDINIR Inactive CEFDINIR 300 MG CAPS by mouth twice a day CEFDINIR 300 MG CAPS 183288 CEFDINIR Inactive CEFDINIR 300 MG CAPS by mouth twice a day CEFDINIR 300 MG CAPS 20020704 CEFDINIR Inactive ZITHROMAX 250 MG TAB 2 po today, then 1 po q days 2-5 ZITHROMAX 250 MG TAB 3720825 AZITHROMYCIN Inactive CEFDINIR 300 MG CAPS by mouth twice a day CEFDINIR 300 MG CAPS 20020704 CEFDINIR Inactive PREDNISONE 20 MG TAB 2 tabs daily for 3 days, 1 t ab daily for 3 days, 1/2 tab daily for 2 days PREDNISONE 20 MG TAB 042549 PREDNISON E Inactive AVELOX 400 MG TABS 1 tab by mouth daily A VELOX 400 MG TABS 777688 MOXIFLOXACIN HCL Inactive AVELOX 400 MG TABS 1 tab by mouth daily A VELOX 400 MG TABS 118576 MOXIFLOXACIN HCL Inactive PREDNISONE 20 MG TAB Take 3 tabs daily for 3 days , 2 tabs daily for 3 days, 1 tab daily for 3 days, 1/2 tab daily for 3 days PREDNISONE 20 MG TAB 287238 PREDNISONE Inactive LEVAQUIN 500 MG TABS take one po QD LEVAQUIN 50 0 MG TABS 115591 LEVOFLOXACIN Inactive AZITHROMYCIN 250 MG TABS 2 po qd x 1 day, then 1 po qd x 4 days AZITHROMYCIN 250 MG TABS 4336628 AZITHROMYCIN Inactiv e MEDROL (REYNA) 4 MG TABS 6 tabs on day 1, 5 tabs on d ay 2, 4 tabs on day 3, 3 tabs on day 4, 2 tabs on day 5, 1 tab on day 6 MEDROL (REYNA) 4 MG TABS METHYLPREDNISOLONE Inactive CHERATUSSIN AC 100-10 MG/5ML SYRP 5ml po q6hr PRN Cough CHERATUSSIN AC 100-10 MG/5ML SYRP 644213 GUAIFENESIN-CODEINE Inacti ve TRIAMCINOLONE ACETONIDE 0.1 % CREA apply three times daily prn r beatrice TRIAMCINOLONE ACETONIDE 0.1 % CREA 7920129 TRIAMCINOLONE ACETONIDE Inactive AZITHROMYCIN 250 MG TABS 2 po qd x 1 day, then 1 po qd x 4 days AZITHROMYCIN 250 MG TABS 9681014 AZITHROMYCIN Inactiv e MEDROL (REYNA) 4 MG [...] days 20 13/03/08 AMOXICILLIN 500 MG CAP 969992 AMOXICILLIN Inactive AMOXICILLIN 500 MG CAP 1 tab by mouth 3 times daily x 10 days 20 14/04/28 AMOXICILLIN 500 MG CAP 686454 AMOXICILLIN Inactive ZITHROMAX 250 MG TAB 2 po today, then 1 po q days 2-5 ZITHROMAX 250 MG TAB 6211460 AZITHROMYCIN Inactive AUGMENTIN 875-125 MG TAB 1 po BID x 10 days AUGMENTIN 875- 125 MG TAB 728651 AMOXICILLIN-POT CLAVULANATE Inactive ZITHROMAX Z-REYNA 250 MG TABS 2 today, then 1 daily for 4 days 201 08/07/20 ZITHROMAX Z-REYNA 250 MG TABS 2537610 AZITHROMYCIN Inac tive ZITHROMAX 250 MG TAB 2 po today, then 1 po q days 2-5 ZITHROMAX 250 MG TAB 5181306 AZITHROMYCIN Inactive ZITHROMAX Z-REYNA 250 MG TABS 2 today, then 1 daily for 4 days 201 08/30/03 ZITHROMAX Z-REYNA 250 MG TABS 7762072 AZITHROMYCIN Inac tive CEFDINIR 300 MG CAPS 1 po BID x 10 days C EFDINIR 300 MG CAPS 642562 CEFDINIR Inactive Vital Signs Date Name Value [...] Measured Encounters Code Encounter Date Provider Facility CPT-49659 Level 4 Est. Patient 14:36:51 CDT Calrton rich MD [facility] CPT-93911 Level 3 Est. Patient 18:16:00 IMMIGRATION ASSOCIATE Blaine HERNANDEZ [facility] CPT-16640 Level 3 Est. Patient 09:45:49 IMMIGRATION ASSOCIATE Carlton rich MD [facility] CPT-73049 Level 3 Est. Patient 13:19:20 CDT Carlton rich MD [facility] CPT-50527 Level 3 Est. Patient 13:06:43 CDT Ridge tam DO [facility] CPT-65476 Level 3 Est. Patient 10:03:07 CDT Perez Mora MD [facility] CPT-04797 Level 3 Est. Patient 19:50:35 IMMIGRATION ASSOCIATE Carlton rich MD [facility] CPT-46787 Level 4 Est. Patient 18:05:01 IMMIGRATION ASSOCIATE Carlton rich MD [facility] CPT-23131 Level 3 Est. Patient 10:45:55 IMMIGRATION ASSOCIATE Hugo Restrepo MD [facility] CPT-26803 Level 3 Est. Patient 14:12:49 CDT Griffin HERNANDEZ [facility] CPT-26116 Level 3 Est. Patient 17:37:24 CDT Carlton rich MD [facility] CPT-26215 Level 3 Est. Patient 16:51:54 CDT Carlton rich MD [facility] CPT-40201 Level 3 Est. Patient 12:18:11 CDT Hugo Restrepo MD [facility] CPT-74679 Level 3 Est. Patient 11:30:25 CDT Marcy crisostomo MD PhD [facility] CPT-16035 Level 3 Est. Patient 12:00:47 IMMIGRATION ASSOCIATE Carlton rich MD [facility] CPT-00286 Level 3 Est. Patient 16:31:06 IMMIGRATION ASSOCIATE Carlton rich MD [facility] CPT-38797 Level 3 Est. Patient 16:23:24 IMMIGRATION ASSOCIATE Ridge tam DO [facility] CPT-11509 Level 3 Est. Patient 12:34:12 CDT Carlton rich MD [facility] CPT-15185 Level 2 Est. Patient 15:43:33 CDT Robi armstrong MD [facility] CPT-50400 Level 4 Est. Patient 14:04:44 CDT Carlton rich MD [facility] CPT-25853 Level 3 Est. Patient 05:47:59 CDT Ridge Zamorano Celeste tam [facility] CPT-57458 Level 3 Est. Patient 13:12:53 IMMIGRATION ASSOCIATE Carlton rich MD [facility] CPT-80165 Level 3 Est. Patient 14:26:53 CDT Hugo Restrepo MD [facility] Procedures Code Procedure Name Date Entry Date Standard Desc ription CPT-35536 Hip bilat min 2V w AP pelvis 13:16:20 CDT 2 CPT-01644 Pelvis only 13:07:33 CDT CPT-37884 Spec Collection and Handling Fee 11:25:12 C DT CPT-00248 Fluzone Quadrivalent Intramuscular Suspe nsion 0.5 ML 14:31:55 CDT CPT-01610 Abx/Therapy Injection 13:28:47 IMMIGRATION ASSOCIATE CPT-J2930 Solu Medrol 125 mg (Methyl Prednisolone Sodium Succinate) 12:00:47 IMMIGRATION ASSOCIATE CPT-24677 Venipuncture Draw Fee 11:33:31 CDT CPT-91444 EKG Trac and Interp 11:21:09 CDT CPT-87706 Chest 2V Frontal and Lat 11:21:09 CDT 12/15 CPT-82930 Venipuncture Draw Fee 08:02:34 CDT CPT-33316 Chest 2V Frontal and Lat 05:47:59 CDT 06/05
--- OUTSIDE RECORDS SUMMARY | 2019-10-08 08:27 | XMS REPORT | Clinical Summary ---
Author Author Caitlin, Juliana Martinez Organization [facility] Address Unknown Phone Unavailable Allergies, [...] Inactive Marcy De La Rosa MD PhD Pelvic pain, acute ICD-789.09 Inactive Hugo Restrepo MD Sinusitis ICD-473.9 Inactive Hugo Restrepo MD Bronchitis-Acute ICD-466.0 Inactive Hugo dominguez MD URI - acute ICD-465.9 Inactive Hugo Restrepo MD Rhinitis, acute ICD-460 Inactive Hugo Ochoa MD Sinusitis ICD-473.9 Inactive Hugo Restrepo MD Bronchitis ICD-490 Inactive Hugo Restrepo MD 201 10/02/29 SINUSITIS, ACUTE ICD-461.9 Inactive Hugo dominguez MD Pharyngitis acute ICD-462 Inactive Hugo gore MD Medication List Medication Instructions Start Date Stop Date Generic Name NDC Status Provider Patient Instruction TUSSIONEX PENNKINETIC ER 10-8 MG/5ML LQCR 5ml po q12hr PRN Cough 20 14/09/04 HYDROCOD POLST-CHLORPHEN POLST 30157683805 Active Elise Whitmore APRN Active ZITHROMAX 250 MG TAB 2 po today, then 1 po q days 2-5 AZITHROMYCIN 12175026887 No Longer Active Elise Whitmore APRN Acti ve TUSSIONEX PENNKINETIC ER 10-8 MG/5ML LQCR 5 ml twice a day a s needed for cough HYDROCOD POLST-CHLORPHEN POLST 47996908209 N o Longer Active Elise Whitmore APRN Active MONTELUKAST SODIUM 10 MG ORAL TABS 1 po daily for Allergy 6 MONTELUKAST SODIUM 02788800597 Active ALFREDO Holly Act nael TUSSIONEX PENNKINETIC ER 10-8 MG/5ML LQCR 5ml po q12hr PRN Cough HYDROCOD POLST-CHLORPHEN POLST 76698305129 No Longer Active Hugo Restrepo MD Active GABAPENTIN 100 MG CAPS 1 po BID for fibromyalgia GABAPENTIN 87860063813 Active Elise Whitmore APRN Active LYRICA 100 MG CAPS Take 1 tab po BID for fibromyalgia PREGABALIN 24066740150 No Longer Active Elise Whitmore APRN Acti ve PROAIR HFA 108 (90 BASE) MCG/ACT AERS 2 puffs four times a d ay as needed ALBUTEROL SULFATE 26347991380 Active Elise Whitmore APRN Active MUCINEX DM MAXIMUM STRENGTH 60-1200 MG [id number] 1 tab po q am 2016 DEXTROMETHORPHAN-GUAIFENESIN 33295076580 Active Jillina Cesarl [employer] WORKER Active PREDNISONE 20 MG TAB 2 tabs daily for 3 days, 1 t ab daily for 3 days, 1/2 tab daily for 2 days PREDNISONE 75815387830 No Longer Active Jillina Frakerriel [employer] WORK[employer] Active TUSSIONEX PENNKINETIC ER 10-8 MG/5ML ORAL LQCR 5 mL PO q 12 hrs PRN cough HYDROCOD POLST-CHLORPHEN POLST 79408763235 No Longer Active Jillina Frazell [employer] WORK[employer] Active FLUTICASONE PROPIONATE 50 MCG/ACT SUSP 2 sprays each n ostril daily until bottle is empty FLUTICASONE PROPIONATE 16041179807 No Longer Ac tive Jillina Frazell PA[employer] WORKER Active ASMANEX 60 METERED DOSES 220 MCG/INH AEPB 1 puff bid with ri nse after MOMETASONE FUROATE 81582085819 No Longer Active Jillina Darlin ell [employer] WORKER Active ZITHROMAX Z-REYNA 250 MG TABS 2 today, then 1 daily for 4 days 201 09/29/14 AZITHROMYCIN 32481640970 No Longer Active Elise Whitmore APRN Active TUSSIONEX PENNKINETIC ER 10-8 MG/5ML LQCR 5ml po q12hr PRN Cough HYDROCOD POLST-CHLORPHEN POLST 29199104487 No Longer Active Elise Whitmore [employer] WORKER Active MUCINEX D 60-600 MG [id number] 1 tab po q am PSEUDOEPHEDRINE-GUAIFENESIN 39857493561 Active Jillina Frazell PA[employer] WORKER Active PREDNISONE 20 MG TAB 2 tabs daily for 3 days, 1 t ab daily for 3 days, 1/2 tab daily for 2 days PREDNISONE 93396197210 No Longer Active Jillina Frazell [employer] WORK[employer] Active AMOXICILLIN 500 MG CAPS 2 po BID x 10 days AMOX ICILLIN 90972406955 No Longer Active Jillina Frazell PA[employer] UP WORKER Active SINGULAIR 10 MG TABS 1 po qday for allergies 2 MONTELUKAST SODIUM 10373002739 No Longer Active Carlton Hu MD Acti ve LEVAQUIN 500 MG TAB 1 tablet by mouth daily LEV OFLOXACIN 76303443255 No Longer Active Carlton Hu MD Active FLUTICASONE PROPIONATE 50 MCG/ACT SUSP 2 sprays each n ostril daily for 2 weeks, then 1 spray each nostril daily. FLUTICASONE PRO PIONATE 64190505466 Active Elise Whitmore APRN Active ZITHROMAX 250 MG TAB 2 po today, then 1 po q days 2-5 AZITHROMYCIN 54880613674 No Longer Active Elise Whitmore APRN Acti ve XANAX 0.5 MG TABS one tablet by mouth daily prn anxiety ALPRAZOLAM 26775706048 Active Elise Whitmore APRN Active CYMBALTA 30 MG CPEP 1 cap by mouth daily for depression DULOXETINE HCL 54832063444 Active Carlton Hu MD Active CEFDINIR 300 MG CAPS 1 po BID x 10 days CEFDINI R 67802061308 No Longer Active Carlton Hu MD Active ZOCOR 40 MG TAB 1 tab by mouth daily SIMVASTATI N 99661066024 No Longer Active Carlton Hu MD Active CYCLOBENZAPRINE HCL 10 MG TABS 1 tablet by mouth BID prn had cherelle n CYCLOBENZAPRINE HCL 14554895695 No Longer Active Carlton Hu MD Active LEVOFLOXACIN 500 MG ORAL TABS 1 tab PO daily x 10 days LEVOFLOXACIN 24370838895 No Longer Active Carlton Hu MD Acti ve PREDNISONE 20 MG ORAL TABS 3 tab PO qd x 2d, 2 tab PO qd x 2d, 1 tab PO qd x 2d, 1/2 tab PO qd x 2d PREDNISONE 24652325228 No Longer Active Carlton Hu MD Active FLUTICASONE PROPIONATE 50 MCG/ACT SUSP 1 to 2 sprays each no stril daily FLUTICASONE PROPIONATE 74933256869 No Longer Active T jaz HERNANDEZ Active CHERATUSSIN AC 100-10 MG/5ML SYRP 1 tsp by mouth every 4 hours as needed for cough GUAIFENESIN-CODEINE 00398458747 No Longer Activ e Blaine HERNANDEZ Active PROMETHAZINE-CODEINE 6.25-10 MG/5ML SYRP 1 tsp by mout h every 6 hours if needed for cough PROMETHAZINE-CODEINE 25029476377 No Long er Active Blaine HERNANDEZ Active CHERATUSSIN AC 100-10 MG/5ML SYRP 1 tsp by mouth every 4 hours as needed for cough GUAIFENESIN-CODEINE 06425068563 No Longer Activ e Blaine HERNANDEZ Active ZITHROMAX Z-REYNA 250 MG TABS 2 today, then 1 daily for 4 days 201 08/30/03 AZITHROMYCIN 57557394259 No Longer Active Columba Raida Act nael ZITHROMAX 250 MG TAB 2 po today, then 1 po q days 2-5 AZITHROMYCIN 39369719763 No Longer Active Carlton Hu MD Acti ve ZITHROMAX Z-REYNA 250 MG TABS 2 today, then 1 daily for 4 days 201 08/07/20 AZITHROMYCIN 44613975781 No Longer Active Columba Raida Act nael AUGMENTIN 875-125 MG TAB 1 po BID x 10 days AMOXICILLIN- POT CLAVULANATE 76214271533 No Longer Active Jillina Frazell PA[employer] WORKER Active ZITHROMAX 250 MG TAB 2 po today, then 1 po q days 2-5 AZITHROMYCIN 39169210421 No Longer Active Carlton Hu MD Acti ve TRAMADOL HCL 50 MG TABS 1 po tid with ES Tylenol TRAMADOL HCL 14535364448 Active Carlton Hu MD Active PREMARIN 0.625 MG TABS TAKE 1 TAB BY MOUTH DAILY 07/25 ESTROGENS CONJUGATED 79925014490 No Longer Active Ridge Bess DO Active CYMBALTA 30 MG CPEP 1 cap by mouth daily DULOXE SNEHA HCL 97668008994 No Longer Active Ridge Bess DO Active AMOXICILLIN 500 MG CAP 1 tab by mouth 3 times daily x 10 days 20 14/04/28 AMOXICILLIN 24272553579 No Longer Active Carlton Hu MD Active AMOXICILLIN 500 MG CAP 1 tab by mouth 3 times daily x 10 days 20 13/03/08 AMOXICILLIN 40687851714 No Longer Active Carlton Hu MD Active PROMETHAZINE-CODEINE 6.25-10 MG/5ML SYRP 1 tsp by mouth ever y 8 hours prn cough PROMETHAZINE-CODEINE 46221476368 No Longer Active Robert Hu MD Active MEDROL (REYNA) 4 MG TABS 6 pills x 1 day, then 5 pill s x 1 day then 4 pills x 1 day, then 3 pills x 1 day, then 2 pills x 1 day, then 1 pill x 1 day, then stop METHYLPREDNISOLONE 51870472721 No Longer Active Parris Mora MD Active AZITHROMYCIN 250 MG TABS 2 po qd x 1 day, then 1 po qd x 4 days AZITHROMYCIN 61617642409 No Longer Active Perez Mora MD Active SYMBICORT 160-4.5 MCG/ACT AERO 2 puffs bid with rinse after 2011 BUDESONIDE-FORMOTEROL FUMARATE 17141497121 No Longer Active Perez Mora MD Active LYRICA 75 MG CAPS TAKE 1 CAPSULE BY MOUTH TWICE DAILY 2013 PREGABALIN 65711055725 No Longer Active Carlton Hu MD Active TOPAMAX 25 MG TABS 1 qHS x 1 week, then 1 BID x 1 week, then 1 qAM and 2 qHS x 1 week, then 2 BID (migraine prevention) TOPIRAMAT E 45260948070 No Longer Active Jerica FUENTES Active TOPAMAX 50 MG TABS take 1 tab po BID for migraines. 12/07/10 TOPIRAMATE 73613642145 No Longer Active Jerica FUENTES Ac tive TOPAMAX 100 MG TABS Take 1 tablet po bid TOPIRAMATE 4999 6938447 Active Elise Whitmore APRN Active TRIAMCINOLONE ACETONIDE 0.1 % CREA apply three times daily prn r beatrice TRIAMCINOLONE ACETONIDE 33895098626 No Longer Active Carlton Hu MD Active PAXIL 40 MG TAB take 1 tab po qday for depression PAROXETINE HCL 50709257954 Active Elise Whitmore APRN Active CHERATUSSIN AC 100-10 MG/5ML SYRP 5ml po q6hr PRN Cough GUAIFENESIN-CODEINE 81208289926 No Longer Active Carlton Hu MD Active MEDROL (REYNA) 4 MG TABS 6 tabs on day 1, 5 tabs on d ay 2, 4 tabs on day 3, 3 tabs on day 4, 2 tabs on day 5, 1 tab on day 6 METHYLPREDNISOLONE 48953439702 No Longer Active Perez Mora MD Active AZITHROMYCIN 250 MG TABS 2 po qd x 1 day, then 1 po qd x 4 days AZITHROMYCIN 75892861149 No Longer Active Perez Mora MD Active PROPRANOLOL HCL 60 MG TABS 1 PO Q D PROPRANOL OL HCL 02662858190 No Longer Active Perez Mora MD Active CHERATUSSIN AC 100-10 MG/5ML SYRP take one tsp po Q 6hours prn c ough GUAIFENESIN-CODEINE 49942032926 No Longer Active Perez Means Active AUGMENTIN 875-125 MG TAB 1 tab by mouth twice daily with food 12/03/31 AMOXICILLIN-POT CLAVULANATE 62765996231 No Longer Active Chanel Mora MD Active CHERATUSSIN AC 100-10 MG/5ML SYRP 1 tsp by mouth every 4 hours as needed for cough GUAIFENESIN-CODEINE 89369153022 No Longer Activ e Hugo Restrepo MD Active ACETAMINOPHEN-CODEINE #3 300-30 MG TABS 1 PO Q 4-6 HRS PRN PAIN ACETAMINOPHEN-CODEINE 66948606130 No Longer Active Hugo Restrepo MD Active LEVAQUIN 500 MG TABS take one po QD LEVOFLOXACI N 78982330814 No Longer Active Griffin HERNANDEZ Active PREDNISONE 20 MG TAB Take 3 tabs daily for 3 days , 2 tabs daily for 3 days, 1 tab daily for 3 days, 1/2 tab daily for 3 days P REDNISONE 58929482556 No Longer Active Carlton Hu MD Active AVELOX 400 MG TABS 1 tab by mouth daily MOXIFLO XACIN HCL 67172855582 No Longer Active Carlton Hu MD Active CHERATUSSIN AC 100-10 MG/5ML SYRP 1 tsp by mouth every 4 hours as needed for cough GUAIFENESIN-CODEINE 00217722059 No Longer Activ e Hugo Restrepo MD Active AVELOX 400 MG TABS 1 tab by mouth daily MOXIFLO XACIN HCL 11901154313 No Longer Active Marcy De La Rosa MD PhD Active TERBINAFINE HCL 250 MG TABS 1 qDay TERBINAF INE HCL 61379048841 No Longer Active Marcy De La Rosa MD PhD Active CHERATUSSIN AC 100-10 MG/5ML SYRP 1 tsp by mouth every 4 hours as needed for cough GUAIFENESIN-CODEINE 62019560653 No Longer Activ e Marcy De La Rosa MD PhD Active AVELOX 400 MG TABS 1 tab by mouth daily MOXIFLO XACIN HCL 00103101840 No Longer Active Marcy De La Rosa MD PhD Active HYDROCODONE-ACETAMINOPHEN 5-325 MG TABS 1 po q 6hr PRN cough 201 05/09/16 HYDROCODONE-ACETAMINOPHEN 31971193590 No Longer Active Marcy De La Rosa MD PhD Active PREDNISONE 20 MG TAB 2 tabs daily for 3 days, 1 t ab daily for 3 days, 1/2 tab daily for 2 days PREDNISONE 50057187503 No Longer Active Carlton Hu MD Active CEFDINIR 300 MG CAPS by mouth twice a day CEFDI ODILIA 98469763907 No Longer Active Carlton Hu MD Active HYDROCHLOROTHIAZIDE 25 MG TABS 1 TAB PO DAILY H YDROCHLOROTHIAZIDE 28013480062 Active Carlton Hu MD Active ACETAMINOPHEN-CODEINE #3 300-30 MG TABS 1 tablet po q 4-6hrs prn pain ACETAMINOPHEN-CODEINE 22578078628 No Longer Active Ridge Bess DO Active ZITHROMAX 250 MG TAB 2 po today, then 1 po q days 2-5 AZITHROMYCIN 85016519624 No Longer Active Carlton Hu MD Acti ve CHERATUSSIN AC 100-10 MG/5ML SYRP take 1 tsp po q4-6 hours prn c ough GUAIFENESIN-CODEINE 73688628911 No Longer Active Carlton Hu MD Active ACETAMINOPHEN-CODEINE #3 300-30 MG TABS 1 PO Q 4-6 HR PRN PAIN 2 ACETAMINOPHEN-CODEINE 88748499356 No Longer Active Carlton rich MD Active LORTAB 7.5-500 MG/15ML ELIX 7.5 ml po q 4 hour prn cough HYDROCODONE-ACETAMINOPHEN 01244848177 No Longer Active Carlton Hu MD Active PREDNISONE 20 MG TAB 1 po bid 3 days, then 1 po q day 3 days 201 05/03/07 PREDNISONE 61119368340 No Longer Active Carlton Hu MD Active ELMIRON 100 MG CAPS 2 tablets in the am and 1 tablet at hs PENTOSAN POLYSULFATE SODIUM 99556911715 Active Carlton Hu MD Ac tive CEFDINIR 300 MG CAPS by mouth twice a day CEFDI ODILIA 68902320277 No Longer Active Carlton Hu MD Active CEFDINIR 300 MG CAPS by mouth twice a day CEFDI ODILIA 26938020410 No Longer Active Carlton Hu MD Active CEFDINIR 300 MG CAPS by mouth twice a day CEFDI ODILIA 91395081533 No Longer Active Carlton Hu MD Active TESSALON PERLES 100 MG CAP 1 tablet by mouth 3 times daily a s needed for cough BENZONATATE 04381155190 No Longer Active Carlton bustamante MD Active CEFDINIR 300 MG CAPS by mouth twice a day CEFDI ODILIA 83154019675 No Longer Active Carlton Hu MD Active ZITHROMAX Z-REYNA 250 MG TABS 2 today, then 1 daily for 4 days 201 04/09/17 AZITHROMYCIN 88699892825 No Longer Active Hugo Restrepo MD Active TESSALON PERLES 100 MG CAP 1 tablet by mouth 3 times daily a s needed for cough TESSALON PERLES 100 MG CAP 092090 BENZONATATE I nactive PREDNISONE 20 MG TAB 1 po bid 3 days, then 1 po q day 3 days 201 05/03/07 PREDNISONE 20 MG TAB 073375 PREDNISONE Inactive LORTAB 7.5-500 MG/15ML ELIX 7.5 ml po q 4 hour prn cough LORTAB 7.5-500 MG/15ML ELIX HYDROCODONE-ACETAMINOPHEN Inacti ve ACETAMINOPHEN-CODEINE #3 300-30 MG TABS 1 PO Q 4-6 HR PRN PAIN 2 ACETAMINOPHEN-CODEINE #3 300-30 MG TABS ACETAMIN OPHEN-CODEINE Inactive CHERATUSSIN AC 100-10 MG/5ML SYRP take 1 tsp po q4-6 hours prn c ough CHERATUSSIN AC 100-10 MG/5ML SYRP 863409 GUAIFENESIN-CO DEINE Inactive ACETAMINOPHEN-CODEINE #3 300-30 MG TABS 1 tablet po q 4-6hrs prn pain ACETAMINOPHEN-CODEINE #3 300-30 MG TABS ACETAMIN OPHEN-CODEINE Inactive HYDROCODONE-ACETAMINOPHEN 5-325 MG TABS 1 po q 6hr PRN cough 201 05/09/16 HYDROCODONE-ACETAMINOPHEN 5-325 MG TABS 486228 HYDROCODONE-ACETAMINOPHEN Inactive AVELOX 400 MG TABS 1 tab by mouth daily A VELOX 400 MG TABS 912314 MOXIFLOXACIN HCL Inactive CHERATUSSIN AC 100-10 MG/5ML SYRP 1 tsp by mouth every 4 hours as needed for cough CHERATUSSIN AC 100-10 MG/5ML SYRP 987004 GUAIFENESIN-CODEINE Inactive TERBINAFINE HCL 250 MG TABS 1 qDay TERBINAFINE HCL 250 MG TABS 258779 TERBINAFINE HCL Inactive CHERATUSSIN AC 100-10 MG/5ML SYRP 1 tsp by mouth every 4 hours as needed for cough CHERATUSSIN AC 100-10 MG/5ML SYRP 353040 GUAIFENESIN-CODEINE Inactive ACETAMINOPHEN-CODEINE #3 300-30 MG TABS 1 PO Q 4-6 HRS PRN PAIN ACETAMINOPHEN-CODEINE #3 300-30 MG TABS ACETAMINOPHEN-CODEIN E Inactive CHERATUSSIN AC 100-10 MG/5ML SYRP 1 tsp by mouth every 4 hours as needed for cough CHERATUSSIN AC 100-10 MG/5ML SYRP 237347 GUAIFENESIN-CODEINE Inactive AUGMENTIN 875-125 MG TAB 1 tab by mouth twice daily with food 20 12/03/31 AUGMENTIN 875-125 MG TAB 924682 AMOXICILLIN-POT CLAVULA EFE Inactive CHERATUSSIN AC 100-10 MG/5ML SYRP take one tsp po Q 6hours prn c ough CHERATUSSIN AC 100-10 MG/5ML SYRP 940892 GUAIFENESIN-CO DEINE Inactive PROPRANOLOL HCL 60 MG TABS 1 PO Q D P ROPRANOLOL HCL 60 MG TABS 071385 PROPRANOLOL HCL Inactive TOPAMAX 50 MG TABS take 1 tab po BID for migraines. 12/07/10 TOPAMAX 50 MG TABS 129963 TOPIRAMATE Inactive TOPAMAX 25 MG TABS 1 qHS x 1 week, then 1 BID x 1 week, then 1 qAM and 2 qHS x 1 week, then 2 BID (migraine prevention) TOPAMAX 2 5 MG TABS 666216 TOPIRAMATE Inactive LYRICA 75 MG CAPS TAKE 1 CAPSULE BY MOUTH TWICE DAILY LYRICA 75 MG CAPS PREGABALIN Inactive SYMBICORT 160-4.5 MCG/ACT AERO 2 puffs bid with rinse after 2011 SYMBICORT 160-4.5 MCG/ACT AERO BUDESONIDE-FORMOT SÁNCHEZ FUMARATE Inactive PROMETHAZINE-CODEINE 6.25-10 MG/5ML SYRP 1 tsp by mouth ever y 8 hours prn cough PROMETHAZINE-CODEINE 6.25-10 MG/5ML SYRP 820015 PROMETHAZINE-CODEINE Inactive CYMBALTA 30 MG CPEP 1 cap by mouth daily CYMBALTA 30 MG CPEP 218987 DULOXETINE HCL Inactive PREMARIN 0.625 MG TABS TAKE 1 TAB BY MOUTH DAILY 07/25 PREMARIN 0.625 MG TABS ESTROGENS CONJUGATED Inactive CHERATUSSIN AC 100-10 MG/5ML SYRP 1 tsp by mouth every 4 hours as needed for cough CHERATUSSIN AC 100-10 MG/5ML SYRP 146393 GUAIFENESIN-CODEINE Inactive PROMETHAZINE-CODEINE 6.25-10 MG/5ML SYRP 1 tsp by mout h every 6 hours if needed for cough PROMETHAZINE-CODEINE 6.25-10 MG/5ML SYRP 339314 PROMETHAZINE-CODEINE Inactive CHERATUSSIN AC 100-10 MG/5ML SYRP 1 tsp by mouth every 4 hours as needed for cough CHERATUSSIN AC 100-10 MG/5ML SYRP 012258 GUAIFENESIN-CODEINE Inactive FLUTICASONE PROPIONATE 50 MCG/ACT SUSP 1 to 2 sprays each no stril daily FLUTICASONE PROPIONATE 50 MCG/ACT SUSP 4097818 FLUTICASONE PROPIONATE Inactive PREDNISONE 20 MG ORAL TABS 3 tab PO qd x 2d, 2 tab PO qd x 2d, 1 tab PO qd x 2d, 1/2 tab PO qd x 2d PREDNISONE 20 MG ORAL TABS 004561 PREDNISONE Inactive LEVOFLOXACIN 500 MG ORAL TABS 1 tab PO daily x 10 days LEVOFLOXACIN 500 MG ORAL TABS 365367 LEVOFLOXACIN Inactive CYCLOBENZAPRINE HCL 10 MG TABS 1 tablet by mouth BID prn had cherelle n CYCLOBENZAPRINE HCL 10 MG TABS 151534 CYCLOBENZAPRINE H CL Inactive ZOCOR 40 MG TAB 1 tab by mouth daily ZOCOR 40 M G TAB 639538 SIMVASTATIN Inactive TUSSIONEX PENNKINETIC ER 10-8 MG/5ML [...] empty FLUTICASONE PROPIONATE 50 MCG/ACT SUSP 17 56075 FLUTICASONE PROPIONATE Inactive TUSSIONEX PENNKINETIC ER 10-8 [...] 201 04/09/17 ZITHROMAX Z-REYNA 250 MG TABS 9762955 AZITHROMYCIN Inac tive CEFDINIR 300 MG CAPS [...] q days 2-5 ZITHROMAX 250 MG TAB 1319172 AZITHROMYCIN Inactive CEFDINIR 300 MG CAPS by mouth twice a day CEFDINIR 300 MG CAPS 20020704 CEFDINIR Inactive PREDNISONE 20 MG TAB 2 tabs daily for 3 days, 1 t ab daily for 3 days, 1/2 tab daily for 2 days PREDNISONE 20 MG TAB 053749 PREDNISON E Inactive AVELOX 400 MG TABS 1 tab by mouth daily A VELOX 400 MG TABS 014537 MOXIFLOXACIN HCL Inactive AVELOX 400 MG TABS 1 tab by mouth daily A VELOX 400 MG TABS 321937 MOXIFLOXACIN HCL Inactive PREDNISONE 20 MG TAB Take 3 tabs daily for 3 days , 2 tabs daily for 3 days, 1 tab daily for 3 days, 1/2 tab daily for 3 days PREDNISONE 20 MG TAB 370897 PREDNISONE Inactive LEVAQUIN 500 MG TABS take one po QD LEVAQUIN 50 0 MG TABS 692563 LEVOFLOXACIN Inactive AZITHROMYCIN 250 MG TABS 2 po qd x 1 day, then 1 po qd x 4 days AZITHROMYCIN 250 MG TABS 6773019 AZITHROMYCIN Inactiv e MEDROL (REYNA) 4 MG TABS 6 tabs on day 1, 5 tabs on d ay 2, 4 tabs on day 3, 3 tabs on day 4, 2 tabs on day 5, 1 tab on day 6 MEDROL (REYNA) 4 MG TABS 920296 METHYLPREDNISOLONE Inactive CHERATUSSIN AC 100-10 MG/5ML SYRP 5ml po q6hr PRN Cough CHERATUSSIN AC 100-10 MG/5ML SYRP 606540 GUAIFENESIN-CODEINE Inacti ve TRIAMCINOLONE ACETONIDE 0.1 % CREA apply three times daily prn r beatrice TRIAMCINOLONE ACETONIDE 0.1 % CREA 7984082 TRIAMCINOLONE ACETONIDE Inactive AZITHROMYCIN 250 MG TABS 2 po qd x 1 day, then 1 po qd x 4 days AZITHROMYCIN 250 MG TABS 3619502 AZITHROMYCIN Inactiv e MEDROL (REYNA) 4 MG TABS 6 pills x 1 day, then 5 pill s x 1 day then 4 pills x 1 day, then 3 pills x 1 day, then 2 pills x 1 day, then 1 pill x 1 day, then stop MEDROL (REYNA) 4 MG TABS 493771 METHYLPREDNISOLONE Inactive AMOXICILLIN 500 MG CAP 1 tab by mouth 3 times daily x 10 days 20 13/03/08 AMOXICILLIN 500 MG CAP 865610 AMOXICILLIN Inactive AMOXICILLIN 500 MG CAP 1 tab by mouth 3 times daily x 10 days 20 14/04/28 AMOXICILLIN 500 MG CAP 891186 AMOXICILLIN Inactive ZITHROMAX 250 MG TAB 2 po today, then 1 po q days 2-5 ZITHROMAX 250 MG TAB 3885568 AZITHROMYCIN Inactive AUGMENTIN 875-125 MG TAB 1 po BID x 10 days AUGMENTIN 875- 125 MG TAB 537950 AMOXICILLIN-POT CLAVULANATE Inactive ZITHROMAX Z-REYNA 250 MG TABS 2 today, then 1 daily for 4 days 201 08/07/20 ZITHROMAX Z-REYNA 250 MG TABS 4365124 AZITHROMYCIN Inac tive ZITHROMAX 250 MG TAB 2 po today, then 1 po q days 2-5 ZITHROMAX 250 MG TAB 0820898 AZITHROMYCIN Inactive ZITHROMAX Z-REYNA 250 MG TABS 2 today, then 1 daily for 4 days 201 08/30/03 ZITHROMAX Z-REYNA 250 MG TABS 6949230 AZITHROMYCIN Inac tive CEFDINIR 300 MG CAPS 1 po BID x 10 days C EFDINIR 300 MG CAPS 20020704 CEFDINIR Inactive ZITHROMAX 250 MG TAB 2 po today, then 1 po q days 2-5 ZITHROMAX 250 MG TAB 4093112 AZITHROMYCIN Inactive LEVAQUIN 500 MG TAB 1 tablet by mouth daily LEVAQUIN 500 MG TAB 379186 LEVOFLOXACIN Inactive SINGULAIR 10 MG TABS 1 po qday for allergies 2 SINGULAIR 10 MG TABS 20010504 MONTELUKAST SODIUM Inactive AMOXICILLIN 500 MG CAPS 2 po BID x 10 days AMOXICILLIN 500 MG CAPS 595671 AMOXICILLIN Inactive PREDNISONE 20 MG TAB 2 tabs daily for 3 days, 1 t ab daily for 3 days, 1/2 tab daily for 2 days PREDNISONE 20 MG TAB 483408 PREDNISON E Inactive ZITHROMAX Z-REYNA 250 MG TABS 2 today, then 1 daily for 4 days 201 09/29/14 ZITHROMAX Z-REYNA 250 MG TABS 9502959 AZITHROMYCIN Inac tive PREDNISONE 20 MG TAB 2 tabs daily for 3 days, 1 t ab daily for 3 days, 1/2 tab daily for 2 days PREDNISONE 20 MG TAB 915547 PREDNISON E Inactive ZITHROMAX 250 MG TAB 2 po today, then 1 po q days 2-5 ZITHROMAX 250 MG TAB 8473818 AZITHROMYCIN Inactive Vital Signs Date Name Value [...] Negative Encounters Code Encounter Date Provider Facility CPT-09523 Level 3 Est. Patient 12:17:50 CDT Hugo Restrepo MD [facility] CPT-87147 Level 3 Est. Patient 13:42:38 CDT Iatlo [facility] CPT-69206 Level 3 Est. Patient 13:23:51 CDT Diya cobian [facility] CPT-05620 Level 3 Est. 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 Patient 10:11:46 CDT Carlton rich MD [facility] CPT-19239 Level 3 Est. Patient 17:29:43 CDT Italo [facility] CPT-50943 Level 3 Est. Patient 11:58:06 CDT [facility] CPT-88934 Level 4 Est. Patient 14:36:51 CDT Carlton rich MD [facility]-23932 Level 3 Est. 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 Patient 13:19:20 CDT Carlton rich MD [facility] CPT-00026 Level 3 Est. Patient 13:06:43 CDT Ridge tam DO [facility] CPT-04003 Level 3 Est. Patient 10:03:07 CDT Perez Mora MD [facility] CPT-71350 Level 3 Est. 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-86866 Level 4 Est. 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-71998 Level 3 Est. 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-36401 Level 3 Est. Patient 14:12:49 CDT Griffin HERNANDEZ [facility]-46781 Level 3 Est. Patient 17:37:24 CDT Carlton rich MD [facility]-82012 Level 3 Est. Patient 16:51:54 CDT Carlton rich MD [facility]-40689 Level 3 Est. Patient 12:18:11 CDT Hugo Restrepo MD [facility]-65455 Level 3 Est. Patient 11:30:25 CDT Marcy crisostomo MD PhD [facility]-77056 Level 3 Est. 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-40871 Level 3 Est. 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-05063 Level 3 Est. 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-40492 Level 3 Est. Patient 12:34:12 CDT Carlton rich MD [facility]-17702 Level 2 Est. Patient 15:43:33 CDT Robi armstrong MD [facility]-76472 Level 4 Est. Patient 14:04:44 CDT Carlton rich MD [facility]-93423 Level 3 Est. Patient 05:47:59 CDT Ridge W L ee DO [facility] CPT-84570 Level 3 Est. 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 Patient 14:26:53 CDT Hugo Restrepo MD [facility] Procedures Code Procedure Name Date Entry Date Standard Desc ription CPT-J1040 Depo Medrol 80 mg (Methyl Prednisolone A cetate) 10:42:44 CDT CPT-J1100 Decadron 8mg (Dexamethasone) 10:42:44 CDT 2 CPT-J0696 Rocephin 1gm Inj Solr 14:32:13 CDT CPT-J1020 Depo Medrol 60 mg (Methyl Prednisolone A cetate) 14:32:13 CDT CPT-J1100 Decadron 6mg (Dexamethasone) 14:32:13 CDT 2 CPT-44568 Hip bilat min 2V w AP pelvis 13:16:20 CDT 2 CPT-28883 Pelvis only 13:07:33 CDT CPT-23714 Spec Collection and Handling Fee 11:25:12 C DT CPT-90887 Fluzone Quadrivalent Intramuscular Suspe nsion 0.5 ML 14:31:55 CDT CPT-71799 Abx/Therapy Injection 13:28:47 [employer]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
--- OUTSIDE RECORDS SUMMARY | 2019-10-08 08:27 | XMS REPORT | Clinical Summary ---
Author Author Caitlin, Juliana Martinez Organization [facility] Address Unknown Phone Unavailable Allergies, [...] of diabetes mellitus MAXILLARY SINUSITIS 473.0 Resolved Mracy De La Rosa MD PhD Chronic maxillary [...] Unspecified sinusitis (chronic) Bronchitis-Acute 466.0 Resolved Hugo Resterpo MD Acute bronchitis URI - acute 465.9 [...] po qd x 5 days P REDNISONE 44462558776 No Longer Active Perez Mora MD Active PROAIR HFA 108 (90 BASE) MCG/ACT INHALATION AEROSOL SO LUTION 2 puffs four times a day as needed ALBUTEROL SULFATE 49987455856 No Long er Active Becky FUENTES Active ASPIRIN 81 MG ORAL TABLET 1 po qd ASPIRIN 40091257004 Active Carlton Hu MD Active PREDNISONE 20 MG ORAL TABLET 1 tab twice daily for 3 d ay, then one daily for three days PREDNISONE 92950557313 No Longer Active Carlton Hu MD Active AUGMENTIN 875-125 MG ORAL TABLET 1 po BID x 10 days 16/03/22 AMOXICILLIN-POT CLAVULANATE 16233449598 No Longer Active Elise Garcia APRN Active TERBINAFINE HCL 250 MG ORAL TABLET 1 qDay for nail fungus 7 TERBINAFINE HCL 62626582807 No Longer Active Carlton Hu MD A ctive TUSSIONEX PENNKINETIC ER 10-8 MG/5ML ORAL SUSPENSION E XTENDED RELEASE 5ml po q12hr PRN Cough HYDROCOD POLST-CHLORPHEN POLST 90193129506 Active Carlton Hu MD Active AMOXICILLIN 500 MG ORAL CAPSULE 1 cap by mouth three times a day AMOXICILLIN 75251604037 No Longer Active Carlton Hu MD Active ELMIRON 100 MG ORAL CAPSULE 2 tablets in the am and 1 tablet at hs PENTOSAN POLYSULFATE SODIUM 81256067647 No Longer Active Robert Hu MD Active MUCINEX D 60-600 MG ORAL TABLET EXTENDED RELEASE 12 HOUR 1 t ab po q am PSEUDOEPHEDRINE-GUAIFENESIN 14407827211 No Longer Act nael Carlton Hu MD Active MUCINEX DM MAXIMUM STRENGTH 60-1200 MG ORAL TABLET EXT ENDED RELEASE 12 HOUR 1 tab po q am DEXTROMETHORPHAN-GUAIFENESIN 68363286780 No Longer Active Carlton Hu MD Active TUSSIONEX PENNKINETIC ER 10-8 MG/5ML ORAL SUSPENSION E XTENDED RELEASE 5ml po q12hr PRN Cough HYDROCOD POLST-CHLORPHEN POLST 5 6822063191 No Longer Active Carlton Hu MD Active POTASSIUM CHLORIDE ER 20 MEQ ORAL TABLET EXTENDED RELE ASE Take 1 by mouth 4 times daily for 7 days POTASSIUM CHLORIDE 71425370632 No Longer Active Carlton Hu MD Active ZITHROMAX 250 MG ORAL TABLET 2 po today, then 1 po q days 2-5 20 14/09/04 AZITHROMYCIN 61966650907 No Longer Active Elise Garcia APRN Active TUSSIONEX PENNKINETIC ER 10-8 MG/5ML ORAL SUSPENSION E XTENDED RELEASE 5 ml twice a day as needed for cough HYDROCOD POLST-CHLORPH EN POLST 37553449296 No Longer Active Elise Garcia APRN Active MONTELUKAST SODIUM 10 MG ORAL TABLET 1 po daily for Allergy MONTELUKAST SODIUM 84033605373 Active Carlton Hu MD Ac tive TUSSIONEX PENNKINETIC ER 10-8 MG/5ML ORAL SUSPENSION E XTENDED RELEASE 5ml po q12hr PRN Cough HYDROCOD POLST-CHLORPHEN POLST 5 6579176290 No Longer Active Hugo Restrepo MD Active GABAPENTIN 100 MG ORAL CAPSULE 1 po BID for fibromyalgia GABAPENTIN 73039492044 Active Carlton Hu MD Active LYRICA 100 MG ORAL CAPSULE Take 1 tab po BID for fibromyalgia 20 11/08/21 PREGABALIN 37862849081 No Longer Active Elise Garcia APRN A ctive PREDNISONE 20 MG ORAL TABLET 2 tabs daily for 3 days, 1 tab daily for 3 days, 1/2 tab daily for 2 days PREDNISONE 07261828030 No Longer Active Diya De Guzman APRN Active TUSSIONEX PENNKINETIC ER 10-8 MG/5ML ORAL SUSPENSION E XTENDED RELEASE 5 mL PO q 12 hrs PRN cough HYDROCOD POLST-CHLORPHEN POLST 075053 22228 No Longer Active Jillina Gege RICEN Active FLUTICASONE PROPIONATE 50 MCG/ACT NASAL SUSPENSION 2 s prays each nostril daily until bottle is empty FLUTICASONE PROPIONATE 707948162 99 No Longer Active Diya De Guzman APRN Active ASMANEX 60 METERED DOSES 220 MCG/INH INHALATION AEROSO L POWDER BREATH ACTIVATED 1 puff bid with rinse after MOMETASONE FUROATE 6735155 4102 No Longer Active Diya De Guzman APRN Active ZITHROMAX Z-REYNA 250 MG ORAL TABLET 2 today, then 1 daily for 4 d ays AZITHROMYCIN 91870405726 No Longer Active Elise Garcia APRN Active TUSSIONEX PENNKINETIC ER 10-8 MG/5ML ORAL SUSPENSION E XTENDED RELEASE 5ml po q12hr PRN Cough HYDROCOD POLST-CHLORPHEN POLST 5 9545506340 No Longer Active Elise Garcia APRN Active PREDNISONE 20 MG ORAL TABLET 2 tabs daily for 3 days, 1 tab daily for 3 days, 1/2 tab daily for 2 days PREDNISONE 45600224685 No Longer Active Diya De Guzman APRN Active AMOXICILLIN 500 MG ORAL CAPSULE 2 po BID x 10 days 201 09/29/08 AMOXICILLIN 01199303266 No Longer Active Diya De Guzman APRN Act nael SINGULAIR 10 MG ORAL TABLET 1 po qday for allergies 20 14/01/12 MONTELUKAST SODIUM 72053136656 No Longer Active Carlton Hu MD Active LEVAQUIN 500 MG ORAL TABLET 1 tablet by mouth daily 20 13/09/24 LEVOFLOXACIN 79938338904 No Longer Active Carlton Hu MD Acti ve FLUTICASONE PROPIONATE 50 MCG/ACT NASAL SUSPENSION 2 s prays each nostril daily for 2 weeks, then 1 spray each nostril daily. FLUTICASONE PROPIONATE 25102811541 Active Elise Garcia APRN Active ZITHROMAX 250 MG ORAL TABLET 2 po today, then 1 po q days 2-5 20 13/08/10 AZITHROMYCIN 32986824948 No Longer Active Elise Garcia APRN Active XANAX 0.5 MG ORAL TABLET one tablet by mouth daily prn anxiety 2015 ALPRAZOLAM 30849372128 Active Carlton Hu MD Active CYMBALTA 30 MG ORAL CAPSULE DELAYED RELEASE PARTICLES 1 cap by mouth daily for depression DULOXETINE HCL 89108140759 Active Carlton beltrán MD Active CEFDINIR 300 MG ORAL CAPSULE 1 po BID x 10 days CEFDINIR 09464567491 No Longer Active Carlton Hu MD Active ZOCOR 40 MG ORAL TABLET 1 tab by mouth daily SI MVASTATIN 06725129015 No Longer Active Carlton Hu MD Active CYCLOBENZAPRINE HCL 10 MG ORAL TABLET 1 tablet by mouth BID prn had pain CYCLOBENZAPRINE HCL 01821493255 No Longer Active Jayden Hu MD Active LEVOFLOXACIN 500 MG ORAL TABLET 1 tab PO daily x 10 days LEVOFLOXACIN 08071244786 No Longer Active Carlton Hu MD Acti ve PREDNISONE 20 MG ORAL TABLET 3 tab PO qd x 2d, 2 tab P O qd x 2d, 1 tab PO qd x 2d, 1/2 tab PO qd x 2d PREDNISONE 06183618593 No Lo nger Active Carlton Hu MD Active FLUTICASONE PROPIONATE 50 MCG/ACT NASAL SUSPENSION 1 t o 2 sprays each nostril daily FLUTICASONE PROPIONATE 68790551624 No Longer Ac tive Blaine HERNANDEZ Active CHERATUSSIN AC 100-10 MG/5ML ORAL SYRUP 1 tsp by mouth every 4 hours as needed for cough GUAIFENESIN-CODEINE 09753968740 No Longe r Active Blaine HERNANDEZ Active PROMETHAZINE-CODEINE 6.25-10 MG/5ML ORAL SYRUP 1 tsp b y mouth every 6 hours if needed for cough PROMETHAZINE-CODEINE 21756983771 No Longer Active Blaine HERNANDEZ Active CHERATUSSIN AC 100-10 MG/5ML ORAL SYRUP 1 tsp by mouth every 4 hours as needed for cough GUAIFENESIN-CODEINE 59390512508 No Longe r Active Blaine HERNANDEZ Active ZITHROMAX Z-REYNA 250 MG ORAL TABLET 2 today, then 1 daily for 4 d ays AZITHROMYCIN 18966867628 No Longer Active Columba Raida Act nael ZITHROMAX 250 MG ORAL TABLET 2 po today, then 1 po q days 2-5 20 14/03/21 AZITHROMYCIN 03732649399 No Longer Active Carlton Hu MD Active ZITHROMAX Z-REYNA 250 MG ORAL TABLET 2 today, then 1 daily for 4 d ays AZITHROMYCIN 71459718333 No Longer Active Columba Raida Act nael AUGMENTIN 875-125 MG ORAL TABLET 1 po BID x 10 days 13/01/20 AMOXICILLIN-POT CLAVULANATE 17779108196 No Longer Active Diya De Guzman APRN Active ZITHROMAX 250 MG ORAL TABLET 2 po today, then 1 po q days 2-5 20 12/08/14 AZITHROMYCIN 97911064608 No Longer Active Carlton Hu MD Active TRAMADOL HCL 50 MG ORAL TABLET 1 po tid with ES Tylenol TRAMADOL HCL 65088861524 Active Carlton Hu MD Active PREMARIN 0.625 MG ORAL TABLET TAKE 1 TAB BY MOUTH DAILY ESTROGENS CONJUGATED 82702187039 No Longer Active Ridge Bess DO A ctive CYMBALTA 30 MG ORAL CAPSULE DELAYED RELEASE PARTICLES 1 cap by mouth daily DULOXETINE HCL 29888111431 No Longer Active Ridge tam DO Active AMOXICILLIN 500 MG ORAL CAPSULE 1 tab by mouth 3 times daily x 10 days AMOXICILLIN 94362965637 No Longer Active Carlton bustamante MD Active AMOXICILLIN 500 MG ORAL CAPSULE 1 tab by mouth 3 times daily x 10 days AMOXICILLIN 94278603016 No Longer Active Carlton bustamante MD Active PROMETHAZINE-CODEINE 6.25-10 MG/5ML ORAL SYRUP 1 tsp b y mouth every 8 hours prn cough PROMETHAZINE-CODEINE 44506384134 No Longer Acti ve Carlton Hu MD Active MEDROL 4 MG ORAL TABLET THERAPY PACK 6 pills x 1 day, then 5 pills x 1 day then 4 pills x 1 day, then 3 pills x 1 day, then 2 pills x 1 day, then 1 pill x 1 day, then stop METHYLPREDNISOLONE 92080575858 No Long er Active Perez Mora MD Active AZITHROMYCIN 250 MG ORAL TABLET 2 po qd x 1 day, then 1 po q d x 4 days AZITHROMYCIN 41442728058 No Longer Active Perez Ambriz MD Active SYMBICORT 160-4.5 MCG/ACT INHALATION AEROSOL 2 puffs bid wit h rinse after BUDESONIDE-FORMOTEROL FUMARATE 11487283528 N o Longer Active Perez Mora MD Active LYRICA 75 MG ORAL CAPSULE TAKE 1 CAPSULE BY MOUTH TWICE DAILY PREGABALIN 08484338843 No Longer Active Carlton Hu MD Acti ve TOPAMAX 25 MG ORAL TABLET 1 qHS x 1 week, then 1 BID x 1 week, then 1 qAM and 2 qHS x 1 week, then 2 BID (migraine prevention) T OPIRAMATE 69297794629 No Longer Active Jerica FUENTES Active TOPAMAX 50 MG ORAL TABLET take 1 tab po BID for migraines. 07/02 TOPIRAMATE 08556181118 No Longer Active Jerica FUENTES Active TOPAMAX 100 MG ORAL TABLET Take 1 tablet po bid TO PIRAMATE 77081502555 Active Carlton Hu MD Active TRIAMCINOLONE ACETONIDE 0.1 % EXTERNAL CREAM apply three roger es daily prn rash TRIAMCINOLONE ACETONIDE 62007509318 No Longer Active Carlton Hu MD Active PAXIL 40 MG ORAL TABLET take 1 tab po qday for depression 0 PAROXETINE HCL 42778071256 Active Carlton Hu MD Active CHERATUSSIN AC 100-10 MG/5ML ORAL SYRUP 5ml po q6hr PRN Cough 20 13/04/14 GUAIFENESIN-CODEINE 25777442679 No Longer Active Carlton Hu MD Active MEDROL 4 MG ORAL TABLET THERAPY PACK 6 tabs on day 1, 5 tabs on day 2, 4 tabs on day 3, 3 tabs on day 4, 2 tabs on day 5, 1 tab on day 6 2013 METHYLPREDNISOLONE 97407537424 No Longer Active Perez Mora MD Active AZITHROMYCIN 250 MG ORAL TABLET 2 po qd x 1 day, then 1 po q d x 4 days AZITHROMYCIN 05331407543 No Longer Active Perez Ambriz MD Active PROPRANOLOL HCL 60 MG ORAL TABLET 1 PO Q D PROPRANOLOL HCL 01440470764 No Longer Active Perez Mora MD Activ e CHERATUSSIN AC 100-10 MG/5ML ORAL SYRUP take one tsp po Q 6h ours prn cough GUAIFENESIN-CODEINE 49662259326 No Longer Active Zia Mora MD Active AUGMENTIN 875-125 MG ORAL TABLET 1 tab by mouth twice daily with food AMOXICILLIN-POT CLAVULANATE 38136244148 No Longer Act nael Perez Mora MD Active CHERATUSSIN AC 100-10 MG/5ML ORAL SYRUP 1 tsp by mouth every 4 hours as needed for cough GUAIFENESIN-CODEINE 17698235702 No Longe r Active Hugo Restrepo MD Active ACETAMINOPHEN-CODEINE #3 300-30 MG ORAL TABLET 1 PO Q 4-6 HRS HI N PAIN ACETAMINOPHEN-CODEINE 54736605923 No Longer Active Hugo Restrepo MD Active LEVAQUIN 500 MG ORAL TABLET take one po QD LEVO FLOXACIN 36494705780 No Longer Active Griffin HERNANDEZ Active PREDNISONE 20 MG ORAL TABLET Take 3 tabs daily for 3 d ays, 2 tabs daily for 3 days, 1 tab daily for 3 days, 1/2 tab daily for 3 days 11/07 PREDNISONE 98933238341 No Longer Active Carlton Hu MD Acti ve AVELOX 400 MG ORAL TABLET 1 tab by mouth daily MOXIFLOXACIN HCL 65214749002 No Longer Active Carlton Hu MD Active CHERATUSSIN AC 100-10 MG/5ML ORAL SYRUP 1 tsp by mouth every 4 hours as needed for cough GUAIFENESIN-CODEINE 10798999356 No Longe r Active Hugo Restrepo MD Active AVELOX 400 MG ORAL TABLET 1 tab by mouth daily MOXIFLOXACIN HCL 36055894008 No Longer Active Marcy De La Rosa MD PhD Active TERBINAFINE HCL 250 MG ORAL TABLET 1 qDay T ERBINAFINE HCL 56698395794 No Longer Active Marcy De La Rosa MD PhD Active CHERATUSSIN AC 100-10 MG/5ML ORAL SYRUP 1 tsp by mouth every 4 hours as needed for cough GUAIFENESIN-CODEINE 81205651492 No Longe r Active Marcy De La Rosa MD PhD Active AVELOX 400 MG ORAL TABLET 1 tab by mouth daily MOXIFLOXACIN HCL 97685595387 No Longer Active Marcy De La Rosa MD PhD Active HYDROCODONE-ACETAMINOPHEN 5-325 MG ORAL TABLET 1 po q 6hr PRN co ugh HYDROCODONE-ACETAMINOPHEN 61342047201 No Longer Active Marcy De La Rosa MD PhD Active PREDNISONE 20 MG ORAL TABLET 2 tabs daily for 3 days, 1 tab daily for 3 days, 1/2 tab daily for 2 days PREDNISONE 94525231940 No Longer Active Carlton Hu MD Active CEFDINIR 300 MG ORAL CAPSULE by mouth twice a day 2011 CEFDINIR 99832077641 No Longer Active Carlton Hu MD Acti ve HYDROCHLOROTHIAZIDE 25 MG ORAL TABLET 1 TAB PO DAILY HYDROCHLOROTHIAZIDE 67600769885 Active Carlton Hu MD A ctive ACETAMINOPHEN-CODEINE #3 300-30 MG ORAL TABLET 1 tablet po q 4-6 hrs prn pain ACETAMINOPHEN-CODEINE 32807572550 No Longer Active Ridge Bess DO Active ZITHROMAX 250 MG ORAL TABLET 2 po today, then 1 po q days 2-5 20 03/07/07 AZITHROMYCIN 31578887958 No Longer Active Carlton Hu MD Active CHERATUSSIN AC 100-10 MG/5ML ORAL SYRUP take 1 tsp po q4-6 h ours prn cough GUAIFENESIN-CODEINE 81179965213 No Longer Active Jayden Hu MD Active ACETAMINOPHEN-CODEINE #3 300-30 MG ORAL TABLET 1 PO Q 4-6 HR PRN PAIN ACETAMINOPHEN-CODEINE 35114260286 No Longer Active Arnol Hu MD Active LORTAB 7.5-500 MG/15ML ORAL ELIXIR 7.5 ml po q 4 hour prn cough HYDROCODONE-ACETAMINOPHEN 10420170334 No Longer Active Carlton Hu MD Active PREDNISONE 20 MG ORAL TABLET 1 po bid 3 days, then 1 po q day 3 days PREDNISONE 28649066703 No Longer Active Carlton Hu MD Active CEFDINIR 300 MG ORAL CAPSULE by mouth twice a day 2011 CEFDINIR 48514342523 No Longer Active Carlton Hu MD Acti ve CEFDINIR 300 MG ORAL CAPSULE by mouth twice a day 2010 CEFDINIR 26641287141 No Longer Active Carlton Hu MD Acti ve CEFDINIR 300 MG ORAL CAPSULE by mouth twice a day 2010 CEFDINIR 94860133919 No Longer Active Carlton Hu MD Acti ve TESSALON PERLES 100 MG ORAL CAPSULE 1 tablet by mouth 3 times daily as needed for cough BENZONATATE 96295201894 No Longer Active Carlton Hu MD Active CEFDINIR 300 MG ORAL CAPSULE by mouth twice a day 2010 CEFDINIR 71557788629 No Longer Active Carlton Hu MD Acti ve ZITHROMAX Z-REYNA 250 MG ORAL TABLET 2 today, then 1 daily for 4 d ays AZITHROMYCIN 90285432754 No Longer Active Hugo Restrepo MD Active TESSALON PERLES 100 MG ORAL CAPSULE 1 tablet by mouth 3 times daily as needed for cough TESSALON PERLES 100 MG ORAL CAPSULE 09182 7 BENZONATATE Inactive PREDNISONE 20 MG ORAL TABLET 1 po bid 3 days, then 1 po q day 3 days PREDNISONE 20 MG ORAL TABLET 250152 PREDNISONE Greer ctive LORTAB 7.5-500 MG/15ML ORAL [...] cough CHERATUSSIN AC 100-10 MG/5ML ORAL SYRUP 423238 GUAIFENESIN-CODEINE Inactive ACETAMINOPHEN-CODEINE #3 300-30 MG ORAL TABLET 1 tablet po q 4-6 hrs prn pain ACETAMINOPHEN-CODEINE #3 300-30 MG ORAL TABLET ACETAMINOPHEN-CODEINE Inactive HYDROCODONE-ACETAMINOPHEN 5-325 MG ORAL TABLET 1 po q 6hr PRN co ugh HYDROCODONE-ACETAMINOPHEN 5-325 MG ORAL TABLET 762158 HYDROCODONE-ACETAMINOPHEN Inactive AVELOX 400 MG ORAL TABLET 1 tab by mouth daily AVELOX 400 MG ORAL TABLET 045064 MOXIFLOXACIN HCL Inactive CHERATUSSIN AC 100-10 MG/5ML ORAL SYRUP 1 tsp by mouth every 4 hours as needed for cough CHERATUSSIN AC 100-10 MG/5ML ORAL SYRUP 9 69895 GUAIFENESIN-CODEINE Inactive TERBINAFINE HCL 250 MG ORAL TABLET 1 qDay 07/08 TERBINAFINE HCL 250 MG ORAL TABLET 030942 TERBINAFINE HCL Inactive CHERATUSSIN AC 100-10 MG/5ML ORAL SYRUP 1 tsp by mouth every 4 hours as needed for cough CHERATUSSIN AC 100-10 MG/5ML ORAL SYRUP 9 94900 GUAIFENESIN-CODEINE Inactive ACETAMINOPHEN-CODEINE #3 300-30 MG ORAL TABLET 1 PO Q 4-6 HRS HI N PAIN ACETAMINOPHEN-CODEINE #3 300-30 MG ORAL TABLET ACETAMINOPHEN-CODEINE Inactive CHERATUSSIN AC 100-10 MG/5ML ORAL SYRUP 1 tsp by mouth every 4 hours as needed for cough CHERATUSSIN AC 100-10 MG/5ML ORAL SYRUP 9 53822 GUAIFENESIN-CODEINE Inactive AUGMENTIN 875-125 MG ORAL TABLET 1 tab by mouth twice daily with food AUGMENTIN 875-125 MG ORAL TABLET 512904 AMOXICIL MADELINE-POT CLAVULANATE Inactive CHERATUSSIN AC 100-10 MG/5ML ORAL SYRUP take one tsp po Q 6h ours prn cough CHERATUSSIN AC 100-10 MG/5ML ORAL SYRUP 938003 GUAIFENESIN-CODEINE Inactive PROPRANOLOL HCL 60 MG ORAL TABLET 1 PO Q D PROPRANOLOL HCL 60 MG ORAL TABLET 777676 PROPRANOLOL HCL Inactive TOPAMAX 50 MG ORAL TABLET take 1 tab po BID for migraines. 07/02 TOPAMAX 50 MG ORAL TABLET 680651 TOPIRAMATE Inacti ve TOPAMAX 25 MG ORAL TABLET 1 qHS x 1 week, then 1 BID x 1 week, then 1 qAM and 2 qHS x 1 week, then 2 BID (migraine prevention) TOPAMAX 25 MG ORAL TABLET 999718 TOPIRAMATE Inactive LYRICA 75 MG ORAL CAPSULE TAKE 1 CAPSULE BY MOUTH TWICE DAILY LYRICA 75 MG ORAL CAPSULE PREGABALIN Inactive SYMBICORT 160-4.5 MCG/ACT INHALATION AEROSOL 2 puffs bid wit h rinse after SYMBICORT 160-4.5 MCG/ACT INHALATION AEROSOL BUDESONIDE- FORMOTEROL FUMARATE Inactive PROMETHAZINE-CODEINE 6.25-10 MG/5ML ORAL SYRUP 1 tsp b y mouth every 8 hours prn cough PROMETHAZINE-CODEINE 6.25-10 MG/ 5ML ORAL SYRUP 700445 PROMETHAZINE-CODEINE Inactive CYMBALTA 30 MG ORAL CAPSULE DELAYED RELEASE PARTICLES 1 cap by mouth daily CYMBALTA 30 MG ORAL CAPSULE DELAYED RELE ASE PARTICLES 952991 DULOXETINE HCL Inactive PREMARIN 0.625 MG ORAL TABLET TAKE 1 TAB BY MOUTH DAILY PREMARIN 0.625 MG ORAL TABLET ESTROGENS CONJUGATED Inactive CHERATUSSIN AC 100-10 MG/5ML ORAL SYRUP 1 tsp by mouth every 4 hours as needed for cough CHERATUSSIN AC 100-10 MG/5ML ORAL SYRUP 9 50233 GUAIFENESIN-CODEINE Inactive PROMETHAZINE-CODEINE 6.25-10 MG/5ML ORAL SYRUP 1 tsp b y mouth every 6 hours if needed for cough PROMETHAZINE-CODEINE 6.25-10 MG/5ML ORAL SYRUP 670064 PROMETHAZINE-CODEINE Inactive CHERATUSSIN AC 100-10 MG/5ML ORAL SYRUP 1 tsp by mouth every 4 hours as needed for cough CHERATUSSIN AC 100-10 MG/5ML ORAL SYRUP 9 72652 GUAIFENESIN-CODEINE Inactive FLUTICASONE PROPIONATE 50 MCG/ACT NASAL SUSPENSION 1 t o 2 sprays each nostril daily FLUTICASONE PROPIONATE 50 MCG/AC T NASAL SUSPENSION 9457471 FLUTICASONE PROPIONATE Inactive PREDNISONE 20 MG ORAL TABLET 3 tab PO qd x 2d, 2 tab P O qd x 2d, 1 tab PO qd x 2d, 1/2 tab PO qd x 2d PREDNISONE 20 MG ORAL TAB LET 146621 PREDNISONE Inactive LEVOFLOXACIN 500 MG ORAL TABLET 1 tab PO daily x 10 days LEVOFLOXACIN 500 MG ORAL TABLET 311220 LEVOFLOXACIN Inactive CYCLOBENZAPRINE HCL 10 MG ORAL TABLET 1 tablet by mouth BID prn had pain CYCLOBENZAPRINE HCL 10 MG ORAL TABLET 075731 CYCLOBENZAPRINE HCL Inactive ZOCOR 40 MG ORAL TABLET 1 tab by mouth daily 4 ZOCOR 40 MG ORAL TABLET 397627 SIMVASTATIN Inactive TUSSIONEX PENNKINETIC ER 10-8 MG/5ML [...] FLUTICASONE PROPIO EFE 50 MCG/ACT NASAL SUSPENSION 1661040 FLUTICASONE PROPIONATE Inactive TUSSIONEX PENNKINETIC ER 10-8 [...] three days PREDNISONE 20 MG ORAL TABLET 948457 PREDNIS ONE Inactive PROAIR HFA 108 (90 BASE) MCG/ACT INHALATION AEROSOL SO LUTION 2 puffs four times a day as needed PROAIR HFA 108 (90 B ASE) MCG/ACT INHALATION AEROSOL SOLUTION ALBUTEROL SULFATE Inactive ZITHROMAX Z-REYNA 250 MG ORAL TABLET 2 today, then 1 daily for 4 d ays ZITHROMAX Z-REYNA 250 MG ORAL TABLET 597548 AZITHROMYCIN Inactive CEFDINIR 300 MG ORAL CAPSULE by mouth twice a day 2010 CEFDINIR 300 MG ORAL CAPSULE 517103 CEFDINIR Inactive CEFDINIR 300 MG ORAL CAPSULE [...] 2-5 03/07/07 ZITHROMAX 250 MG ORAL TABLET 086244 AZITHROMYCIN [place] ctive CEFDINIR 300 MG ORAL CAPSULE by mouth twice a day 2011 CEFDINIR 300 MG ORAL CAPSULE 20020704 CEFDINIR Inactive PREDNISONE 20 MG ORAL TABLET 2 tabs daily for 3 days, 1 tab daily for 3 days, 1/2 tab daily for 2 days PREDNISONE 20 MG ORAL T ABLET 298897 PREDNISONE Inactive AVELOX 400 MG ORAL TABLET 1 tab by mouth daily AVELOX 400 MG ORAL TABLET 675786 MOXIFLOXACIN HCL Inactive AVELOX 400 MG ORAL TABLET 1 tab by mouth daily AVELOX 400 MG ORAL TABLET 689922 MOXIFLOXACIN HCL Inactive PREDNISONE 20 MG ORAL TABLET Take 3 tabs daily for 3 d ays, 2 tabs daily for 3 days, 1 tab daily for 3 days, 1/2 tab daily for 3 days 11/07 PREDNISONE 20 MG ORAL TABLET 021338 PREDNISONE Inactive LEVAQUIN 500 MG ORAL TABLET take one po QD LEVAQUIN 500 MG ORAL TABLET 597122 LEVOFLOXACIN Inactive AZITHROMYCIN 250 MG ORAL TABLET 2 po qd x 1 day, then 1 po q d x 4 days AZITHROMYCIN 250 MG ORAL TABLET 104710 AZITHROMY GIOVANNI Inactive MEDROL 4 MG ORAL TABLET THERAPY PACK 6 tabs on day 1, 5 tabs on day 2, 4 tabs on day 3, 3 tabs on day 4, 2 tabs on day 5, 1 tab on day 6 2013 MEDROL 4 MG ORAL TABLET THERAPY PACK 786901 METHYLPREDNISOLONE Greer ctive CHERATUSSIN AC 100-10 MG/5ML ORAL SYRUP 5ml po q6hr PRN Cough 20 13/04/14 CHERATUSSIN AC 100-10 MG/5ML ORAL SYRUP 005298 GUAIFENE SIN-CODEINE Inactive TRIAMCINOLONE ACETONIDE 0.1 % EXTERNAL CREAM apply three roger es daily prn rash TRIAMCINOLONE ACETONIDE 0.1 % EXTERNAL CREAM 101 4314 TRIAMCINOLONE ACETONIDE Inactive AZITHROMYCIN 250 MG ORAL TABLET 2 po qd x 1 day, then 1 po q d x 4 days AZITHROMYCIN 250 MG ORAL TABLET 067042 AZITHROMY GIOVANNI Inactive MEDROL 4 MG ORAL TABLET THERAPY PACK 6 pills x 1 day, then 5 pills x 1 day then 4 pills x 1 day, then 3 pills x 1 day, then 2 pills x 1 day, then 1 pill x 1 day, then stop MEDROL 4 MG ORAL TABLET THERAPY PACK 406020 METHYLPREDNISOLONE Inactive AMOXICILLIN 500 MG ORAL CAPSULE 1 tab by mouth 3 times daily x 10 days AMOXICILLIN 500 MG ORAL CAPSULE 910387 AMOXICILL IN Inactive AMOXICILLIN 500 MG ORAL CAPSULE 1 tab by mouth 3 times daily x 10 days AMOXICILLIN 500 MG ORAL CAPSULE 349545 AMOXICILL IN Inactive ZITHROMAX 250 MG ORAL TABLET 2 po today, then 1 po q days 2-5 20 12/08/14 ZITHROMAX 250 MG ORAL TABLET 088571 AZITHROMYCIN Greer ctive AUGMENTIN 875-125 MG ORAL TABLET 1 po BID x 10 days 20 13/01/20 AUGMENTIN 875-125 MG ORAL TABLET 528333 AMOXICILLIN-POT CLAVULANATE Inactive ZITHROMAX Z-REYNA 250 MG ORAL TABLET 2 today, then 1 daily for 4 d ays ZITHROMAX Z-REYNA 250 MG ORAL TABLET 992703 AZITHROMYCIN Inactive ZITHROMAX 250 MG ORAL TABLET 2 po today, then 1 po q days 2-5 20 14/03/21 ZITHROMAX 250 MG ORAL TABLET 967209 AZITHROMYCIN Greer ctive ZITHROMAX Z-REYNA 250 MG ORAL TABLET 2 today, then 1 daily for 4 d ays ZITHROMAX Z-REYNA 250 MG ORAL TABLET 528697 AZITHROMYCIN Inactive CEFDINIR 300 MG ORAL CAPSULE 1 po BID x 10 days 06/21 CEFDINIR 300 MG ORAL CAPSULE 20020704 CEFDINIR Inactive ZITHROMAX 250 MG ORAL TABLET 2 po today, then 1 po q days 2-5 20 13/08/10 ZITHROMAX 250 MG ORAL TABLET 716841 AZITHROMYCIN Greer ctive LEVAQUIN 500 MG ORAL TABLET 1 tablet by mouth daily 13/09/24 LEVAQUIN 500 MG ORAL TABLET 19971102 LEVOFLOXACIN Inactive SINGULAIR 10 MG ORAL TABLET 1 po qday for allergies 20 14/01/12 SINGULAIR 10 MG ORAL TABLET 20010504 MONTELUKAST SODIUM Inactive AMOXICILLIN 500 MG ORAL CAPSULE 2 po BID x 10 days 201 09/29/08 AMOXICILLIN 500 MG ORAL CAPSULE 155737 AMOXICILLIN Inactive PREDNISONE 20 MG ORAL TABLET 2 tabs daily for 3 days, 1 tab daily for 3 days, 1/2 tab daily for 2 days PREDNISONE 20 MG ORAL T ABLET 346474 PREDNISONE Inactive ZITHROMAX Z-REYNA 250 MG ORAL TABLET 2 today, then 1 daily for 4 d ays ZITHROMAX Z-REYNA 250 MG ORAL TABLET 333131 AZITHROMYCIN Inactive PREDNISONE 20 MG ORAL TABLET 2 tabs daily for 3 days, 1 tab daily for 3 days, 1/2 tab daily for 2 days PREDNISONE 20 MG ORAL T ABLET 795157 PREDNISONE Inactive ZITHROMAX 250 MG ORAL TABLET 2 po today, then 1 po q days 2-5 20 14/09/04 ZITHROMAX 250 MG ORAL TABLET 379405 AZITHROMYCIN Greer ctive AMOXICILLIN 500 MG ORAL CAPSULE 1 cap by mouth three times a day AMOXICILLIN 500 MG ORAL CAPSULE 299071 AMOXICILLIN Inactive TERBINAFINE HCL 250 MG ORAL TABLET 1 qDay for nail fungus 7 TERBINAFINE HCL 250 MG ORAL TABLET 212182 TERBINAFINE HCL Inact nael AUGMENTIN 875-125 MG ORAL TABLET 1 po BID x 10 days 16/03/22 AUGMENTIN 875-125 MG ORAL TABLET 247792 AMOXICILLIN-POT CLAVULANATE Inactive PREDNISONE 20 MG ORAL TABLET 2 po qd x 5 days PREDNISONE 20 MG ORAL TABLET 406175 PREDNISONE Inactive Vital Signs Date Name Value [...] - Chem istry sodium, serum 132 mmol/L 241-275 4783/07/12 potassium, serum 2.7 mmol/L 3.5-5.2 chloride, serum 93 mmol/L 98-107 carbon dioxide, venous blood 30.8 mmol/L 21.0-32 .0 blood glucose 107 mg/dL 65-110 calcium, serum 9.3 mg/dL 8.5-10.1 urea nitrogen, blood 12 mg/dL 7-18 creatinine, serum 1.00 mg/dL 0.60-1.30 sodium, serum 142 mmol/L 482-549 6464/07/17 potassium, serum 4.2 mmol/L 3.5-5.2 chloride, serum 106 mmol/L 98-107 carbon dioxide, venous blood 29.9 mmol/L 21.0-32 .0 blood glucose 108 mg/dL 65-110 calcium, serum 9.1 mg/dL 8.5-10.1 urea nitrogen, blood 11 mg/dL 7-18 creatinine, serum 0.81 mg/dL 0.60-1.30 sodium, serum 139 mmol/L 225-197 1044/03/19 potassium, serum 3.6 mmol/L 3.5-5.2 chloride, serum 100 mmol/L 98-107 carbon dioxide, venous blood 30.3 mmol/L 21.0-32 .0 blood glucose 101 mg/dL 65-110 calcium, serum 9.4 mg/dL 8.5-10.1 urea nitrogen, blood 10 mg/dL 7- creatinine, serum 0.96 mg/dL 0.60-1.30 Lab Report: Rapid Strep - Lab Microbial identification kit, rapid strep method Negative Negative Encounters Code Encounter Date Provider Facility CPT-37553 Level 3 Est. Patient 11:34:49 ENGINEERING PATTERNMAKER Perez Mora MD [facility] CPT-16184 Level 4 Est. Patient 09:51:32 ENGINEERING PATTERNMAKER Carlton rich MD [facility] CPT-32102 Level 3 Est. Patient 10:26:00 ENGINEERING PATTERNMAKER Elise stephenson [facility] CPT-46115 Level 3 Est. Patient 13:35:41 ENGINEERING PATTERNMAKER Carlton rich MD [facility] CPT-67240 Level 3 Est. Patient 10:03:52 ENGINEERING PATTERNMAKER Carlton rich MD [facility] CPT-17255 Level 3 Est. Patient 12:17:50 CDT Hugo Restrepo MD [facility] CPT-97649 Level 3 Est. Patient 13:42:38 CDT Elise stephenson [facility] CPT-69623 Level 3 Est. Patient 13:23:51 CDT Diya cobian [facility] CPT-86825 Level 3 Est. Patient 14:22:19 ENGINEERING PATTERNMAKER Diya cobian [facility] CPT-90437 Level 3 Est. Patient 10:11:46 CDT Carlton rich MD [facility] CPT-03256 Level 3 Est. Patient 17:29:43 CDT Elise Are ll DIRECTOR OF SECURITY [facility] CPT-91358 Level 3 Est. Patient 11:58:06 CDT Elise Are ll DIRECTOR OF SECURITY [facility] CPT-83705 Level 4 Est. Patient 14:36:51 CDT Carlton rich MD [facility] CPT-47029 Level 3 Est. Patient 18:16:00 ENGINEERING PATTERNMAKER Blaine Freeman [facility] CPT-99748 Level 3 Est. Patient 09:45:49 ENGINEERING PATTERNMAKER Carlton rich MD [facility] CPT-96683 Level 3 Est. Patient 13:19:20 CDT Carlton rich MD [facility] CPT-52324 Level 3 Est. Patient 13:06:43 CDT Ridge tam DO [facility] CPT-12290 Level 3 Est. Patient 10:03:07 CDT Perez Mora MD [facility] CPT-76061 Level 3 Est. Patient 19:50:35 ENGINEERING PATTERNMAKER Carlton rich MD [facility] CPT-87444 Level 4 Est. Patient 18:05:01 ENGINEERING PATTERNMAKER Carlton rich MD [facility] CPT-11488 Level 3 Est. Patient 10:45:55 ENGINEERING PATTERNMAKER Hugo Restrepo MD [facility] CPT-31851 Level 3 Est. Patient 14:12:49 CDT Griffin lincoln [facility] CPT-52890 Level 3 Est. Patient 17:37:24 CDT Carlton rich MD [facility] CPT-62607 Level 3 Est. Patient 16:51:54 CDT Carlton rich MD [facility] CPT-69909 Level 3 Est. Patient 12:18:11 CDT Hugo Restrepo MD [facility] CPT-67600 Level 3 Est. Patient 11:30:25 CDT Marcy crisostomo MD PhD [facility] CPT-93776 Level 3 Est. Patient 12:00:47 ENGINEERING PATTERNMAKER Carlton rich MD [facility] CPT-98449 Level 3 Est. Patient 16:31:06 ENGINEERING PATTERNMAKER Carlton rich MD [facility] CPT-13732 Level 3 Est. Patient 16:23:24 ENGINEERING PATTERNMAKER Ridge tam [facility] CPT-14471 Level 3 Est. Patient 12:34:12 CDT Carlton rich MD [facility] CPT-07162 Level 2 Est. Patient 15:43:33 CDT Robi armstrong MD [facility] CPT-02227 Level 4 Est. Patient 14:04:44 CDT Carlton rich MD [facility] CPT-66816 Level 3 Est. Patient 05:47:59 CDT Ridge tam [facility] CPT-38816 Level 3 Est. Patient 13:12:53 ENGINEERING PATTERNMAKER Carlton rich MD [facility] CPT-13892 Level 3 Est. Patient 14:26:53 CDT Hugo Restrepo MD [facility] Procedures Code Procedure Name Date Entry Date Standard Desc ription CPT-J1040 Depo Medrol 80 mg (Methyl Prednisolone A cetate) 10:42:44 CDT CPT-J1100 Decadron 8mg (Dexamethasone) 10:42:44 CDT 2 CPT-J0696 Rocephin 1gm Inj Solr 14:32:13 CDT CPT-J1020 Depo Medrol 60 mg (Methyl Prednisolone A cetate) 14:32:13 CDT CPT-J1100 Decadron 6mg (Dexamethasone) 14:32:13 CDT 2 CPT-61809 Hip bilat min 2V w AP pelvis 13:16:20 CDT 2 CPT-51317 Pelvis only 13:07:33 CDT CPT-60229 Spec Collection and Handling Fee 11:25:12 C DT CPT-50319 Fluzone Quadrivalent Intramuscular Suspe nsion 0.5 ML 14:31:55 CDT CPT-25800 Abx/Therapy Injection 13:28:47 ENGINEERING PATTERNMAKER CPT-J2930 Solu Medrol 125 mg (Methyl Prednisolone Sodium Succinate) 12:00:47 ENGINEERING PATTERNMAKER CPT-01784 Venipuncture Draw Fee 11:33:31 CDT CPT-30819 EKG Trac and Interp 11:21:09 CDT CPT-06852 Chest 2V Frontal and Lat 11:21:09 CDT 12/15 CPT-20801 Venipuncture Draw Fee 08:02:34 CDT CPT-13041 Chest 2V Frontal and Lat 05:47:59 CDT 06/05
--- OUTSIDE RECORDS SUMMARY | 2019-10-08 08:28 | XMS REPORT | Clinical Summary ---
[...] sites Sinusitis 473.9 Active Diya De Guzman OUTER DIAMETER GRINDER Unspecified sinusitis (chronic) Bronchitis-Acute 466.0 Active Carlton Hu MD Acute bronchitis URI - acute 465.9 Active Elise Whitmore OUTER DIAMETER GRINDER Acute upper respiratory infections of unspecified site Pharyngitis acute 462 Active Elise Whitmore A PRN Acute pharyngitis Rhinitis, acute 460 Active Elise Whitmore APR N Acute nasopharyngitis [common cold] Sinusitis 473.9 Active Diya De Guzman OUTER DIAMETER GRINDER Unspecified sinusitis (chronic) Bronchitis 490 Active Diya De Guzman OUTER DIAMETER GRINDER Bronchitis, not specified as acute or chronic [...] Rosa MD PhD SINUSITIS, ACUTE ICD-461.9 Inactive Hguo dominguez MD Medication List Medication Instructions Start Date Stop Date Generic Name NDC Status Provider Patient Instruction GABAPENTIN 100 MG CAPS 1 po BID for fibromyalgia GABAPENTIN [id number] Active Elise Whitmore OUTER DIAMETER GRINDER Active LYRICA 100 MG CAPS Take 1 tab po BID for fibromyalgia PREGABALIN 95531240486 No Longer Active Elise Whitmore OUTER DIAMETER GRINDER Acti ve PROAIR HFA 108 (90 BASE) MCG/ACT AERS 2 puffs four times a d ay as needed ALBUTEROL SULFATE 17132317557 Active Venullina Gege APR N Active MUCINEX DM MAXIMUM STRENGTH 60-1200 MG [id number] 1 tab po q am 2016 DEXTROMETHORPHAN-GUAIFENESIN [id number] Active Venullina Frakerriel OUTER DIAMETER GRINDER Active TUSSIONEX PENNKINETIC ER 10-8 MG/5ML LQCR 5ml po q12hr PRN Cough 20 14/06/21 HYDROCOD POLST-CHLORPHEN POLST 90913817332 Active Carlton Hu MD Active PREDNISONE 20 MG TAB 2 tabs daily for 3 days, 1 t ab daily for 3 days, 1/2 tab daily for 2 days PREDNISONE 62966383233 No Longer Active Venullina Cesarl OUTER DIAMETER GRINDER Active TUSSIONEX PENNKINETIC ER 10-8 MG/5ML ORAL LQCR 5 mL PO q 12 hrs PRN cough HYDROCOD POLST-CHLORPHEN POLST 56558092229 No Longer Active Jillina Frazell OUTER DIAMETER GRINDER Active FLUTICASONE PROPIONATE 50 MCG/ACT SUSP 2 sprays each n ostril daily until bottle is empty FLUTICASONE PROPIONATE 33678604929 No Longer Ac tive Jillina Frakerriel OUTER DIAMETER GRINDER Active ASMANEX 60 METERED DOSES 220 MCG/INH AEPB 1 puff bid with ri nse after MOMETASONE FUROATE 40089109699 No Longer Active Jillina Fraz ell OUTER DIAMETER GRINDER Active ZITHROMAX Z-REYNA 250 MG TABS 2 today, then 1 daily for 4 days 201 09/29/14 AZITHROMYCIN 08914016701 No Longer Active Elise Whitmore APRN Active TUSSIONEX PENNKINETIC ER 10-8 MG/5ML LQCR 5ml po q12hr PRN Cough HYDROCOD POLST-CHLORPHEN POLST 49289842427 No Longer Active Elise Whitmore APRN Active MUCINEX D 60-600 MG [id number] 1 tab po q am PSEUDOEPHEDRINE-GUAIFENESIN 31215321651 Active Jillina Frazell OUTER DIAMETER GRINDER Active PREDNISONE 20 MG TAB 2 tabs daily for 3 days, 1 t ab daily for 3 days, 1/2 tab daily for 2 days PREDNISONE 71514891815 No Longer Active Jillina Frazell OUTER DIAMETER GRINDER Active AMOXICILLIN 500 MG CAPS 2 po BID x 10 days AMOX ICILLIN 17858136599 No Longer Active Jillina Frazell OUTER DIAMETER GRINDER Active SINGULAIR 10 MG TABS 1 po qday for allergies 2 MONTELUKAST SODIUM 60047503149 No Longer Active Carlton Hu MD Acti ve LEVAQUIN 500 MG TAB 1 tablet by mouth daily LEV OFLOXACIN 32615631222 No Longer Active Carlton Hu MD Active FLUTICASONE PROPIONATE 50 MCG/ACT SUSP 2 sprays each n ostril daily for 2 weeks, then 1 spray each nostril daily. FLUTICASONE PRO PIONATE 96050687622 Active Elise Whitmore APRN Active ZITHROMAX 250 MG TAB 2 po today, then 1 po q days 2-5 AZITHROMYCIN 06716055544 No Longer Active Elise Whitmore APRN Acti ve XANAX 0.5 MG TABS one tablet by mouth daily prn anxiety ALPRAZOLAM 22834823643 Active Elise Whitmore APRN Active CYMBALTA 30 MG CPEP 1 cap by mouth daily for depression DULOXETINE HCL 99276647542 Active Carlton Hu MD Active CEFDINIR 300 MG CAPS 1 po BID x 10 days CEFDINI R 42340549024 No Longer Active Carlton Hu MD Active ZOCOR 40 MG TAB 1 tab by mouth daily SIMVASTATI N 29292102131 No Longer Active Carlton Hu MD Active CYCLOBENZAPRINE HCL 10 MG TABS 1 tablet by mouth BID prn had cherelle n CYCLOBENZAPRINE HCL 65264118196 No Longer Active Carlton Hu MD Active LEVOFLOXACIN 500 MG ORAL TABS 1 tab PO daily x 10 days LEVOFLOXACIN 45811981202 No Longer Active Carlton Hu MD Acti ve PREDNISONE 20 MG ORAL TABS 3 tab PO qd x 2d, 2 tab PO qd x 2d, 1 tab PO qd x 2d, 1/2 tab PO qd x 2d PREDNISONE 09441361695 No Longer Active Carlton Hu MD Active FLUTICASONE PROPIONATE 50 MCG/ACT SUSP 1 to 2 sprays each no stril daily FLUTICASONE PROPIONATE 10417984110 No Longer Active T jaz HERNANDEZ Active CHERATUSSIN AC 100-10 MG/5ML SYRP 1 tsp by mouth every 4 hours as needed for cough GUAIFENESIN-CODEINE 84214333739 No Longer Activ e Blaine HERNANDEZ Active PROMETHAZINE-CODEINE 6.25-10 MG/5ML SYRP 1 tsp by mout h every 6 hours if needed for cough PROMETHAZINE-CODEINE 29568268932 No Long er Active Blaine HERNANDEZ Active CHERATUSSIN AC 100-10 MG/5ML SYRP 1 tsp by mouth every 4 hours as needed for cough GUAIFENESIN-CODEINE 36591066990 No Longer Activ e Blaine HERNANDEZ Active ZITHROMAX Z-REYNA 250 MG TABS 2 today, then 1 daily for 4 days 201 08/30/03 AZITHROMYCIN 64495737173 No Longer Active Columba Raida Act nael ZITHROMAX 250 MG TAB 2 po today, then 1 po q days 2-5 AZITHROMYCIN 32733131029 No Longer Active Carlton Hu MD Acti ve ZITHROMAX Z-REYNA 250 MG TABS 2 today, then 1 daily for 4 days 201 08/07/20 AZITHROMYCIN 21650209752 No Longer Active Columba Raida Act nael AUGMENTIN 875-125 MG TAB 1 po BID x 10 days AMOXICILLIN- POT CLAVULANATE 87347635779 No Longer Active Diya De Guzman APRN Active ZITHROMAX 250 MG TAB 2 po today, then 1 po q days 2-5 AZITHROMYCIN 21673136854 No Longer Active Carlton Hu MD Acti ve TRAMADOL HCL 50 MG TABS 1 po tid with ES Tylenol TRAMADOL HCL 96235380054 Active Carlton Hu MD Active PREMARIN 0.625 MG TABS TAKE 1 TAB BY MOUTH DAILY 07/25 ESTROGENS CONJUGATED 88817421625 No Longer Active Ridge Bess DO Active CYMBALTA 30 MG CPEP 1 cap by mouth daily DULOXE SNEHA HCL 09490538507 No Longer Active Ridge Bess DO Active AMOXICILLIN 500 MG CAP 1 tab by mouth 3 times daily x 10 days 20 14/04/28 AMOXICILLIN 06820041446 No Longer Active Carlton Hu MD Active AMOXICILLIN 500 MG CAP 1 tab by mouth 3 times daily x 10 days 20 13/03/08 AMOXICILLIN 56838075370 No Longer Active Carlton Hu MD Active PROMETHAZINE-CODEINE 6.25-10 MG/5ML SYRP 1 tsp by mouth ever y 8 hours prn cough PROMETHAZINE-CODEINE 00801103049 No Longer Active Robert Hu MD Active MEDROL (REYNA) 4 MG TABS 6 pills x 1 day, then 5 pill s x 1 day then 4 pills x 1 day, then 3 pills x 1 day, then 2 pills x 1 day, then 1 pill x 1 day, then stop METHYLPREDNISOLONE 75460416196 No Longer Active Parris Mora MD Active AZITHROMYCIN 250 MG TABS 2 po qd x 1 day, then 1 po qd x 4 days AZITHROMYCIN 04042748236 No Longer Active Perez Mora MD Active SYMBICORT 160-4.5 MCG/ACT AERO 2 puffs bid with rinse after 2011 BUDESONIDE-FORMOTEROL FUMARATE 21736536223 No Longer Active Perez Mora MD Active LYRICA 75 MG CAPS TAKE 1 CAPSULE BY MOUTH TWICE DAILY 2013 PREGABALIN 54938538712 No Longer Active Carlton Hu MD Active TOPAMAX 25 MG TABS 1 qHS x 1 week, then 1 BID x 1 week, then 1 qAM and 2 qHS x 1 week, then 2 BID (migraine prevention) TOPIRAMAT E 22017741262 No Longer Active Jerica FUENTES Active TOPAMAX 50 MG TABS take 1 tab po BID for migraines. 12/07/10 TOPIRAMATE 49974179462 No Longer Active Jerica AGUILARA Ac tive TOPAMAX 100 MG TABS Take 1 tablet po bid TOPIRAMATE 4999 3279818 Active Elise Whitmore APRN Active TRIAMCINOLONE ACETONIDE 0.1 % CREA apply three times daily prn r beatrice TRIAMCINOLONE ACETONIDE 46073270651 No Longer Active Carlton Hu MD Active PAXIL 40 MG TAB take 1 tab po qday for depression PAROXETINE HCL 70530873419 Active Elise Whitmore APRN Active CHERATUSSIN AC 100-10 MG/5ML SYRP 5ml po q6hr PRN Cough GUAIFENESIN-CODEINE 22618723962 No Longer Active Carlton Hu MD Active MEDROL (REYNA) 4 MG TABS 6 tabs on day 1, 5 tabs on d ay 2, 4 tabs on day 3, 3 tabs on day 4, 2 tabs on day 5, 1 tab on day 6 METHYLPREDNISOLONE 00776768815 No Longer Active Perez Mora MD Active AZITHROMYCIN 250 MG TABS 2 po qd x 1 day, then 1 po qd x 4 days AZITHROMYCIN 64878073315 No Longer Active Perez Mora MD Active PROPRANOLOL HCL 60 MG TABS 1 PO Q D PROPRANOL OL HCL 74751852245 No Longer Active Perez Mora MD Active CHERATUSSIN AC 100-10 MG/5ML SYRP take one tsp po Q 6hours prn c ough GUAIFENESIN-CODEINE 90793877192 No Longer Active Perez Means Active AUGMENTIN 875-125 MG TAB 1 tab by mouth twice daily with food 12/03/31 AMOXICILLIN-POT CLAVULANATE 15499349878 No Longer Active Chanel Mora MD Active CHERATUSSIN AC 100-10 MG/5ML SYRP 1 tsp by mouth every 4 hours as needed for cough GUAIFENESIN-CODEINE 29238425855 No Longer Activ e Hugo Restrepo MD Active ACETAMINOPHEN-CODEINE #3 300-30 MG TABS 1 PO Q 4-6 HRS PRN PAIN ACETAMINOPHEN-CODEINE 07820600835 No Longer Active Hugo Restrepo MD Active LEVAQUIN 500 MG TABS take one po QD LEVOFLOXACI N 06122018476 No Longer Active Griffin HERNANDEZ Active PREDNISONE 20 MG TAB Take 3 tabs daily for 3 days , 2 tabs daily for 3 days, 1 tab daily for 3 days, 1/2 tab daily for 3 days P REDNISONE 21503426458 No Longer Active Carlton Hu MD Active AVELOX 400 MG TABS 1 tab by mouth daily MOXIFLO XACIN HCL 97647765290 No Longer Active Carlton Hu MD Active CHERATUSSIN AC 100-10 MG/5ML SYRP 1 tsp by mouth every 4 hours as needed for cough GUAIFENESIN-CODEINE 19002500326 No Longer Activ e Hugo Restrepo MD Active AVELOX 400 MG TABS 1 tab by mouth daily MOXIFLO XACIN HCL 38812366663 No Longer Active Marcy De La Rosa MD PhD Active TERBINAFINE HCL 250 MG TABS 1 qDay TERBINAF INE HCL 27929961051 No Longer Active Marcy De La Rosa MD PhD Active CHERATUSSIN AC 100-10 MG/5ML SYRP 1 tsp by mouth every 4 hours as needed for cough GUAIFENESIN-CODEINE 37321611778 No Longer Activ e Marcy De La Rosa MD PhD Active AVELOX 400 MG TABS 1 tab by mouth daily MOXIFLO XACIN HCL 39511013196 No Longer Active Marcy De La Rosa MD PhD Active HYDROCODONE-ACETAMINOPHEN 5-325 MG TABS 1 po q 6hr PRN cough 201 05/09/16 HYDROCODONE-ACETAMINOPHEN 36324014139 No Longer Active Marcy De La Rosa MD PhD Active PREDNISONE 20 MG TAB 2 tabs daily for 3 days, 1 t ab daily for 3 days, 1/2 tab daily for 2 days PREDNISONE 46277818562 No Longer Active Carlton Hu MD Active CEFDINIR 300 MG CAPS by mouth twice a day CEFDI ODILIA 61960039430 No Longer Active Carlton Hu MD Active HYDROCHLOROTHIAZIDE 25 MG TABS 1 TAB PO DAILY H YDROCHLOROTHIAZIDE 72967843230 Active Carlton Hu MD Active ACETAMINOPHEN-CODEINE #3 300-30 MG TABS 1 tablet po q 4-6hrs prn pain ACETAMINOPHEN-CODEINE 68248754362 No Longer Active Ridge Bess DO Active ZITHROMAX 250 MG TAB 2 po today, then 1 po q days 2-5 AZITHROMYCIN 84622672224 No Longer Active Carlton Hu MD Acti ve CHERATUSSIN AC 100-10 MG/5ML SYRP take 1 tsp po q4-6 hours prn c ough GUAIFENESIN-CODEINE 93529987837 No Longer Active Carlton Hu MD Active ACETAMINOPHEN-CODEINE #3 300-30 MG TABS 1 PO Q 4-6 HR PRN PAIN 2 ACETAMINOPHEN-CODEINE 42008104976 No Longer Active Carlton rich MD Active LORTAB 7.5-500 MG/15ML ELIX 7.5 ml po q 4 hour prn cough HYDROCODONE-ACETAMINOPHEN 93436223692 No Longer Active Carlton Hu MD Active PREDNISONE 20 MG TAB 1 po bid 3 days, then 1 po q day 3 days 201 05/03/07 PREDNISONE 05931867019 No Longer Active Cartlon Hu MD Active ELMIRON 100 MG CAPS 2 tablets in the am and 1 tablet at hs PENTOSAN POLYSULFATE SODIUM 24320312326 Active Carlton Hu MD Ac tive CEFDINIR 300 MG CAPS by mouth twice a day CEFDI ODILIA 10988815225 No Longer Active Carlton Hu MD Active CEFDINIR 300 MG CAPS by mouth twice a day CEFDI ODILIA 59872654371 No Longer Active Carlton Hu MD Active CEFDINIR 300 MG CAPS by mouth twice a day CEFDI ODILIA 31169375837 No Longer Active Carlton Hu MD Active TESSALON PERLES 100 MG CAP 1 tablet by mouth 3 times daily a s needed for cough BENZONATATE 66413367989 No Longer Active Carlton bustamante MD Active CEFDINIR 300 MG CAPS by mouth twice a day CEFDI ODILIA 16178591544 No Longer Active Carlton Hu MD Active ZITHROMAX Z-REYNA 250 MG TABS 2 today, then 1 daily for 4 days 201 04/09/17 AZITHROMYCIN 43306363272 No Longer Active Hugo Restrepo MD Active TESSALON PERLES 100 MG CAP 1 tablet by mouth 3 times daily a s needed for cough TESSALON PERLES 100 MG CAP 512273 BENZONATATE I nactive PREDNISONE 20 MG TAB 1 po bid 3 days, then 1 po q day 3 days 201 05/03/07 PREDNISONE 20 MG TAB 392203 PREDNISONE Inactive LORTAB 7.5-500 MG/15ML ELIX 7.5 ml po q 4 hour prn cough LORTAB 7.5-500 MG/15ML ELIX HYDROCODONE-ACETAMINOPHEN Inacti ve ACETAMINOPHEN-CODEINE #3 300-30 MG TABS 1 PO Q 4-6 HR PRN PAIN 2 ACETAMINOPHEN-CODEINE #3 300-30 MG TABS 287755 ACETAMIN OPHEN-CODEINE Inactive CHERATUSSIN AC 100-10 MG/5ML SYRP take 1 tsp po q4-6 hours prn c ough CHERATUSSIN AC 100-10 MG/5ML SYRP 252345 GUAIFENESIN-CO DEINE Inactive ACETAMINOPHEN-CODEINE #3 300-30 MG TABS 1 tablet po q 4-6hrs prn pain ACETAMINOPHEN-CODEINE #3 300-30 MG TABS 615763 ACETAMIN OPHEN-CODEINE Inactive HYDROCODONE-ACETAMINOPHEN 5-325 MG TABS 1 po q 6hr PRN cough 201 05/09/16 HYDROCODONE-ACETAMINOPHEN 5-325 MG TABS 661450 HYDROCODONE-ACETAMINOPHEN Inactive AVELOX 400 MG TABS 1 tab by mouth daily A VELOX 400 MG TABS 685709 MOXIFLOXACIN HCL Inactive CHERATUSSIN AC 100-10 MG/5ML SYRP 1 tsp by mouth every 4 hours as needed for cough CHERATUSSIN AC 100-10 MG/5ML SYRP 193900 GUAIFENESIN-CODEINE Inactive TERBINAFINE HCL 250 MG TABS 1 qDay TERBINAFINE HCL 250 MG TABS 216099 TERBINAFINE HCL Inactive CHERATUSSIN AC 100-10 MG/5ML SYRP 1 tsp by mouth every 4 hours as needed for cough CHERATUSSIN AC 100-10 MG/5ML SYRP 314208 GUAIFENESIN-CODEINE Inactive ACETAMINOPHEN-CODEINE #3 300-30 MG TABS 1 PO Q 4-6 HRS PRN PAIN ACETAMINOPHEN-CODEINE #3 300-30 MG TABS 626448 ACETAMINOPHEN-CODEIN E Inactive CHERATUSSIN AC 100-10 MG/5ML SYRP 1 tsp by mouth every 4 hours as needed for cough CHERATUSSIN AC 100-10 MG/5ML SYRP 440784 GUAIFENESIN-CODEINE Inactive AUGMENTIN 875-125 MG TAB 1 tab by mouth twice daily with food 20 12/03/31 AUGMENTIN 875-125 MG TAB 502151 AMOXICILLIN-POT CLAVULA EFE Inactive CHERATUSSIN AC 100-10 MG/5ML SYRP take one tsp po Q 6hours prn c ough CHERATUSSIN AC 100-10 MG/5ML SYRP 639380 GUAIFENESIN-CO DEINE Inactive PROPRANOLOL HCL 60 MG TABS 1 PO Q D P ROPRANOLOL HCL 60 MG TABS 799591 PROPRANOLOL HCL Inactive TOPAMAX 50 MG TABS take 1 tab po BID for migraines. 12/07/10 TOPAMAX 50 MG TABS 859990 TOPIRAMATE Inactive TOPAMAX 25 MG TABS 1 qHS x 1 week, then 1 BID x 1 week, then 1 qAM and 2 qHS x 1 week, then 2 BID (migraine prevention) TOPAMAX 2 5 MG TABS 975903 TOPIRAMATE Inactive LYRICA 75 MG CAPS TAKE 1 CAPSULE BY MOUTH TWICE DAILY LYRICA 75 MG CAPS PREGABALIN Inactive SYMBICORT 160-4.5 MCG/ACT AERO 2 puffs bid with rinse after 2011 SYMBICORT 160-4.5 MCG/ACT AERO BUDESONIDE-FORMOT SÁNCHEZ FUMARATE Inactive PROMETHAZINE-CODEINE 6.25-10 MG/5ML SYRP 1 tsp by mouth ever y 8 hours prn cough PROMETHAZINE-CODEINE 6.25-10 MG/5ML SYRP 817875 PROMETHAZINE-CODEINE Inactive CYMBALTA 30 MG CPEP 1 cap by mouth daily CYMBALTA 30 MG CPEP 737024 DULOXETINE HCL Inactive PREMARIN 0.625 MG TABS TAKE 1 TAB BY MOUTH DAILY 07/25 PREMARIN 0.625 MG TABS ESTROGENS CONJUGATED Inactive CHERATUSSIN AC 100-10 MG/5ML SYRP 1 tsp by mouth every 4 hours as needed for cough CHERATUSSIN AC 100-10 MG/5ML SYRP 666246 GUAIFENESIN-CODEINE Inactive PROMETHAZINE-CODEINE 6.25-10 MG/5ML SYRP 1 tsp by mout h every 6 hours if needed for cough PROMETHAZINE-CODEINE 6.25-10 MG/5ML SYRP 327115 PROMETHAZINE-CODEINE Inactive CHERATUSSIN AC 100-10 MG/5ML SYRP 1 tsp by mouth every 4 hours as needed for cough CHERATUSSIN AC 100-10 MG/5ML SYRP 223864 GUAIFENESIN-CODEINE Inactive FLUTICASONE PROPIONATE 50 MCG/ACT SUSP 1 to 2 sprays each no stril daily FLUTICASONE PROPIONATE 50 MCG/ACT SUSP 7560740 FLUTICASONE PROPIONATE Inactive PREDNISONE 20 MG ORAL TABS 3 tab PO qd x 2d, 2 tab PO qd x 2d, 1 tab PO qd x 2d, 1/2 tab PO qd x 2d PREDNISONE 20 MG ORAL TABS 661735 PREDNISONE Inactive LEVOFLOXACIN 500 MG ORAL TABS 1 tab PO daily x 10 days LEVOFLOXACIN 500 MG ORAL TABS 760164 LEVOFLOXACIN Inactive CYCLOBENZAPRINE HCL 10 MG TABS 1 tablet by mouth BID prn had cherelle n CYCLOBENZAPRINE HCL 10 MG TABS 833535 CYCLOBENZAPRINE H CL Inactive ZOCOR 40 MG TAB 1 tab by mouth daily ZOCOR 40 M G TAB 471524 SIMVASTATIN Inactive TUSSIONEX PENNKINETIC ER 10-8 MG/5ML [...] empty FLUTICASONE PROPIONATE 50 MCG/ACT SUSP 17 14400 FLUTICASONE PROPIONATE Inactive TUSSIONEX PENNKINETIC ER 10-8 [...] 201 04/09/17 ZITHROMAX Z-REYNA 250 MG TABS 4157409 AZITHROMYCIN Inac tive CEFDINIR 300 MG CAPS [...] q days 2-5 ZITHROMAX 250 MG TAB 4756382 AZITHROMYCIN Inactive CEFDINIR 300 MG CAPS by mouth twice a day CEFDINIR 300 MG CAPS 20020704 CEFDINIR Inactive PREDNISONE 20 MG TAB 2 tabs daily for 3 days, 1 t ab daily for 3 days, 1/2 tab daily for 2 days PREDNISONE 20 MG TAB 038258 PREDNISON E Inactive AVELOX 400 MG TABS 1 tab by mouth daily A VELOX 400 MG TABS 098170 MOXIFLOXACIN HCL Inactive AVELOX 400 MG TABS 1 tab by mouth daily A VELOX 400 MG TABS 931248 MOXIFLOXACIN HCL Inactive PREDNISONE 20 MG TAB Take 3 tabs daily for 3 days , 2 tabs daily for 3 days, 1 tab daily for 3 days, 1/2 tab daily for 3 days PREDNISONE 20 MG TAB 428081 PREDNISONE Inactive LEVAQUIN 500 MG TABS take one po QD LEVAQUIN 50 0 MG TABS 913087 LEVOFLOXACIN Inactive AZITHROMYCIN 250 MG TABS 2 po qd x 1 day, then 1 po qd x 4 days AZITHROMYCIN 250 MG TABS 6325320 AZITHROMYCIN Inactiv e MEDROL (REYNA) 4 MG TABS 6 tabs on day 1, 5 tabs on d ay 2, 4 tabs on day 3, 3 tabs on day 4, 2 tabs on day 5, 1 tab on day 6 MEDROL (REYNA) 4 MG TABS 563659 METHYLPREDNISOLONE Inactive CHERATUSSIN AC 100-10 MG/5ML SYRP 5ml po q6hr PRN Cough CHERATUSSIN AC 100-10 MG/5ML SYRP 733329 GUAIFENESIN-CODEINE Inacti ve TRIAMCINOLONE ACETONIDE 0.1 % CREA apply three times daily prn r beatrice TRIAMCINOLONE ACETONIDE 0.1 % CREA 9423085 TRIAMCINOLONE ACETONIDE Inactive AZITHROMYCIN 250 MG TABS 2 po qd x 1 day, then 1 po qd x 4 days AZITHROMYCIN 250 MG TABS 9494565 AZITHROMYCIN Inactiv e MEDROL (REYNA) 4 MG TABS 6 pills x 1 day, then 5 pill s x 1 day then 4 pills x 1 day, then 3 pills x 1 day, then 2 pills x 1 day, then 1 pill x 1 day, then stop MEDROL (REYNA) 4 MG TABS 339232 METHYLPREDNISOLONE Inactive AMOXICILLIN 500 MG CAP 1 tab by mouth 3 times daily x 10 days 20 13/03/08 AMOXICILLIN 500 MG CAP 137827 AMOXICILLIN Inactive AMOXICILLIN 500 MG CAP 1 tab by mouth 3 times daily x 10 days 20 14/04/28 AMOXICILLIN 500 MG CAP 973738 AMOXICILLIN Inactive ZITHROMAX 250 MG TAB 2 po today, then 1 po q days 2-5 ZITHROMAX 250 MG TAB 8856085 AZITHROMYCIN Inactive AUGMENTIN 875-125 MG TAB 1 po BID x 10 days AUGMENTIN 875- 125 MG TAB 662881 AMOXICILLIN-POT CLAVULANATE Inactive ZITHROMAX Z-REYNA 250 MG TABS 2 today, then 1 daily for 4 days 201 08/07/20 ZITHROMAX Z-REYNA 250 MG TABS 3456325 AZITHROMYCIN Inac tive ZITHROMAX 250 MG TAB 2 po today, then 1 po q days 2-5 ZITHROMAX 250 MG TAB 6722592 AZITHROMYCIN Inactive ZITHROMAX Z-REYNA 250 MG TABS 2 today, then 1 daily for 4 days 201 08/30/03 ZITHROMAX Z-REYNA 250 MG TABS 0938496 AZITHROMYCIN Inac tive CEFDINIR 300 MG CAPS 1 po BID x 10 days C EFDINIR 300 MG CAPS 548359 CEFDINIR Inactive ZITHROMAX 250 MG TAB 2 po today, then 1 po q days 2-5 ZITHROMAX 250 MG TAB 1031981 AZITHROMYCIN Inactive LEVAQUIN 500 MG TAB 1 tablet by mouth daily LEVAQUIN 500 MG TAB 689277 LEVOFLOXACIN Inactive SINGULAIR 10 MG TABS 1 po qday for allergies 2 SINGULAIR 10 MG TABS 20010504 MONTELUKAST SODIUM Inactive AMOXICILLIN 500 MG CAPS 2 po BID x 10 days AMOXICILLIN 500 MG CAPS 624105 AMOXICILLIN Inactive PREDNISONE 20 MG TAB 2 tabs daily for 3 days, 1 t ab daily for 3 days, 1/2 tab daily for 2 days PREDNISONE 20 MG TAB 995331 PREDNISON E Inactive ZITHROMAX Z-REYNA 250 MG TABS 2 today, then 1 daily for 4 days 201 09/29/14 ZITHROMAX Z-REYNA 250 MG TABS 5808094 AZITHROMYCIN Inac tive PREDNISONE 20 MG TAB 2 tabs daily for 3 days, 1 t ab daily for 3 days, 1/2 tab daily for 2 days PREDNISONE 20 MG TAB 082174 PREDNISON E Inactive Vital Signs Date Name [...] Measured Encounters Code Encounter Date Provider Facility CPT-68594 Level 3 Est. Patient 13:42:38 CDT Italo KHAN [facility] CPT-10123 Level 3 Est. Patient 13:23:51 CDT Diya holtell [facility] CPT-43193 Level 3 Est. Patient 14:22:19 RESEARCH ANIMAL FACILITY SUPERVISOR Diya Mariana holtgideon [facility] CPT-95782 Level 3 Est. Patient 10:11:46 CDT Carlton rich MD [facility] CPT-12604 Level 3 Est. Patient 17:29:43 CDT Elise Cesar spaulding [facility] CPT-44306 Level 3 Est. Patient 11:58:06 CDT Elise And chelly [facility] CPT-28796 Level 4 Est. Patient 14:36:51 CDT Carlton rich MD [facility]-55391 Level 3 Est. Patient 18:16:00 RESEARCH ANIMAL FACILITY SUPERVISOR Blaine Freeman [facility] CPT-62605 Level 3 Est. Patient 09:45:49 RESEARCH ANIMAL FACILITY SUPERVISOR Carlton rich MD [facility] CPT-13210 Level 3 Est. Patient 13:19:20 CDT Carlton rich MD [facility] CPT-44228 Level 3 Est. Patient 13:06:43 CDT Ridge tam DO [facility] CPT-87775 Level 3 Est. Patient 10:03:07 CDT Perez Mora MD [facility] CPT-97368 Level 3 Est. Patient 19:50:35 RESEARCH ANIMAL FACILITY SUPERVISOR Carlton rich MD [facility] CPT-89324 Level 4 Est. Patient 18:05:01 RESEARCH ANIMAL FACILITY SUPERVISOR Carlton rich MD [facility] CPT-91527 Level 3 Est. Patient 10:45:55 RESEARCH ANIMAL FACILITY SUPERVISOR Hugo Restrepo MD [facility] CPT-85610 Level 3 Est. Patient 14:12:49 CDT Griffin lincoln [facility] CPT-93907 Level 3 Est. Patient 17:37:24 CDT Carlton rich MD [facility] CPT-14209 Level 3 Est. Patient 16:51:54 CDT Carlton rich MD [facility] CPT-21797 Level 3 Est. Patient 12:18:11 CDT Hugo Restrepo MD [facility] CPT-45915 Level 3 Est. Patient 11:30:25 CDT Marcy crisostomo MD PhD [facility] CPT-36629 Level 3 Est. Patient 12:00:47 RESEARCH ANIMAL FACILITY SUPERVISOR Carlton rich MD [facility] CPT-71481 Level 3 Est. Patient 16:31:06 RESEARCH ANIMAL FACILITY SUPERVISOR Carlton rich MD [facility] CPT-31781 Level 3 Est. Patient 16:23:24 RESEARCH ANIMAL FACILITY SUPERVISOR Ridge tam [facility] CPT-60758 Level 3 Est. Patient 12:34:12 CDT Carlton rich MD [facility] CPT-77156 Level 2 Est. Patient 15:43:33 CDT Robi armstrong MD [facility] CPT-60868 Level 4 Est. Patient 14:04:44 CDT Carlton rich MD [facility] CPT-78744 Level 3 Est. Patient 05:47:[address] [facility] CPT-97579 Level 3 Est. Patient 13:12:53 RESEARCH ANIMAL FACILITY SUPERVISOR Carlton rich MD [facility] CPT-11699 Level 3 Est. Patient 14:26:53 CDT Hugo Restrepo MD [facility] Procedures Code Procedure Name Date Entry Date Standard Desc ription CPT-J0696 Rocephin 1gm Inj Solr 14:32:13 CDT CPT-J1020 Depo Medrol 60 mg (Methyl Prednisolone A cetate) 14:32:13 CDT CPT-J1100 Decadron 6mg (Dexamethasone) 14:32:13 CDT 2 CPT-21347 Hip bilat min 2V w AP pelvis 13:16:20 CDT 2 CPT-73883 Pelvis only 13:07:33 CDT CPT-56609 Spec Collection and Handling Fee 11:25:12 C DT CPT-37878 Fluzone Quadrivalent Intramuscular Suspe nsion 0.5 ML 14:31:55 CDT CPT-94635 Abx/Therapy Injection 13:28:47 [employer] CPT-J2930 Solu Medrol 125 mg (Methyl Prednisolone Sodium Succinate) 12:00:47 [employer] CPT-66230 Venipuncture Draw Fee 11:33:31 CDT CPT-80706 EKG Trac and Interp 11:21:09 CDT CPT-92370 Chest 2V Frontal and Lat 11:21:09 CDT 12/15 CPT-36837 Venipuncture Draw Fee 08:02:34 CDT CPT-28828 Chest 2V Frontal and Lat 05:47:59 CDT 06/05
--- OUTSIDE RECORDS SUMMARY | 2019-10-08 08:28 | XMS REPORT | Clinical Summary ---
Author Author Caitlin, Juliana Martinez Organization [facility] Address Unknown Phone Unavailable Allergies, [...] sites Sinusitis 473.9 Active Diya De Guzman SURGICAL ONCOLOGIST Unspecified sinusitis (chronic) Bronchitis-Acute 466.0 Active Carlton Hu MD Acute bronchitis URI - acute 465.9 Active Elise Whitmore SURGICAL ONCOLOGIST Acute upper respiratory infections of unspecified site Pharyngitis acute 462 Active Elise Whitmore A PRN Acute pharyngitis Rhinitis, acute 460 Active Elise Whitmore APR N Acute nasopharyngitis [common cold] Sinusitis 473.9 Active Diya De Guzman SURGICAL ONCOLOGIST Unspecified sinusitis (chronic) BRONCHITIS ICD-490 Inactive Hugo [...] Generic Name NDC Status Provider Patient Instruction MUCINEX D 60-600 MG [id number] 1 tab po q am PSEUDOEPHEDRINE-GUAIFENESIN [id number] Active Jillina Frazell SURGICAL ONCOLOGIST Active PREDNISONE 20 MG TAB 2 tabs daily for 3 days, 1 t ab daily for 3 days, 1/2 tab daily for 2 days PREDNISONE 33892636631 Active Jillina Frazell SURGICAL ONCOLOGIST Active TUSSIONEX PENNKINETIC ER 10-8 MG/5ML LQCR 5ml po q12hr PRN Cough 20 16/04/29 HYDROCOD POLST-CHLORPHEN POLST 05251272048 Active Jillina Frazell SURGICAL ONCOLOGIST Active AMOXICILLIN 500 MG CAPS 2 po BID x 10 days AMOX ICILLIN 88157719942 Active Venullina Cesarl SURGICAL ONCOLOGIST Active SINGULAIR 10 MG TABS 1 po qday for allergies 2 MONTELUKAST SODIUM 49764812774 No Longer Active Carlton Hu MD Acti ve LEVAQUIN 500 MG TAB 1 tablet by mouth daily LEV OFLOXACIN 48126043471 No Longer Active Carlton Hu MD Active FLUTICASONE PROPIONATE 50 MCG/ACT SUSP 2 sprays each n ostril daily for 2 weeks, then 1 spray each nostril daily. FLUTICASONE PRO PIONATE 37120664681 Active Elise Whitmore APRN Active ZITHROMAX 250 MG TAB 2 po today, then 1 po q days 2-5 AZITHROMYCIN 47008015101 No Longer Active Elise Whitmore APRN Acti ve XANAX 0.5 MG TABS one tablet by mouth daily prn anxiety ALPRAZOLAM 90642521460 Active Elise Whitmore APRN Active CYMBALTA 30 MG CPEP 1 cap by mouth daily for depression DULOXETINE HCL 20242974475 Active Carlton Hu MD Active CEFDINIR 300 MG CAPS 1 po BID x 10 days CEFDINI R 72520948515 No Longer Active Carlton Hu MD Active ZOCOR 40 MG TAB 1 tab by mouth daily SIMVASTATI N 42393354020 No Longer Active Carlton Hu MD Active CYCLOBENZAPRINE HCL 10 MG TABS 1 tablet by mouth BID prn had cherelle n CYCLOBENZAPRINE HCL 93686091568 No Longer Active Carlton Hu MD Active LEVOFLOXACIN 500 MG ORAL TABS 1 tab PO daily x 10 days LEVOFLOXACIN 10425581607 No Longer Active Carlton Hu MD Acti ve PREDNISONE 20 MG ORAL TABS 3 tab PO qd x 2d, 2 tab PO qd x 2d, 1 tab PO qd x 2d, 1/2 tab PO qd x 2d PREDNISONE 60035041752 No Longer Active Carlton Hu MD Active TUSSIONEX PENNKINETIC ER 10-8 MG/5ML ORAL LQCR 5 mL PO q 12 hrs PRN cough HYDROCOD POLST-CHLORPHEN POLST 67090535285 Active Carlton Hu MD Active FLUTICASONE PROPIONATE 50 MCG/ACT SUSP 1 to 2 sprays each no stril daily FLUTICASONE PROPIONATE 50353266393 No Longer Active T jaz HERNANDEZ Active CHERATUSSIN AC 100-10 MG/5ML SYRP 1 tsp by mouth every 4 hours as needed for cough GUAIFENESIN-CODEINE 50359349374 No Longer Activ e Blaine HERNANDEZ Active PROMETHAZINE-CODEINE 6.25-10 MG/5ML SYRP 1 tsp by mout h every 6 hours if needed for cough PROMETHAZINE-CODEINE 01409906757 No Long er Active Blaine HERNANDEZ Active CHERATUSSIN AC 100-10 MG/5ML SYRP 1 tsp by mouth every 4 hours as needed for cough GUAIFENESIN-CODEINE 91911126192 No Longer Activ Jorge Luis HERNANDEZ Active ZITHROMAX Z-REYNA 250 MG TABS 2 today, then 1 daily for 4 days 201 08/30/03 AZITHROMYCIN 69803024772 No Longer Active Columba Raida Act nael ZITHROMAX 250 MG TAB 2 po today, then 1 po q days 2-5 AZITHROMYCIN 00305758575 No Longer Active Carlton Hu MD Acti ve ZITHROMAX Z-REYNA 250 MG TABS 2 today, then 1 daily for 4 days 201 08/07/20 AZITHROMYCIN 29972511580 No Longer Active Columba Raida Act nael AUGMENTIN 875-125 MG TAB 1 po BID x 10 days AMOXICILLIN- POT CLAVULANATE 29134343350 No Longer Active Diya De Guzman APRN Active ZITHROMAX 250 MG TAB 2 po today, then 1 po q days 2-5 AZITHROMYCIN 33128895414 No Longer Active Carlton Hu MD Acti ve TRAMADOL HCL 50 MG TABS 1 po tid with ES Tylenol TRAMADOL HCL 14436362024 Active Carlton Hu MD Active PREMARIN 0.625 MG TABS TAKE 1 TAB BY MOUTH DAILY 07/25 ESTROGENS CONJUGATED 95087238154 No Longer Active Ridge Bess DO Active CYMBALTA 30 MG CPEP 1 cap by mouth daily DULOXE SNEHA HCL 97086514521 No Longer Active Ridge Bess DO Active AMOXICILLIN 500 MG CAP 1 tab by mouth 3 times daily x 10 days 20 14/04/28 AMOXICILLIN 13044153468 No Longer Active Carlton Hu MD Active AMOXICILLIN 500 MG CAP 1 tab by mouth 3 times daily x 10 days 20 13/03/08 AMOXICILLIN 31845585845 No Longer Active Carlton Hu MD Active PROMETHAZINE-CODEINE 6.25-10 MG/5ML SYRP 1 tsp by mouth ever y 8 hours prn cough PROMETHAZINE-CODEINE 70963821921 No Longer Active Robert Hu MD Active MEDROL (REYNA) 4 MG TABS 6 pills x 1 day, then 5 pill s x 1 day then 4 pills x 1 day, then 3 pills x 1 day, then 2 pills x 1 day, then 1 pill x 1 day, then stop METHYLPREDNISOLONE 23368715800 No Longer Active Parris Mora MD Active AZITHROMYCIN 250 MG TABS 2 po qd x 1 day, then 1 po qd x 4 days AZITHROMYCIN 18605212584 No Longer Active Perez Mora MD Active SYMBICORT 160-4.5 MCG/ACT AERO 2 puffs bid with rinse after 2011 BUDESONIDE-FORMOTEROL FUMARATE 77667842060 No Longer Active Perez Mora MD Active LYRICA 75 MG CAPS TAKE 1 CAPSULE BY MOUTH TWICE DAILY 2013 PREGABALIN 67167187800 No Longer Active Carlton Hu MD Active LYRICA 100 MG CAPS Take 1 tab po BID for fibromyalgia PREGABALIN 23882307535 Active Elise Whitmore APRN Active TOPAMAX 25 MG TABS 1 qHS x 1 week, then 1 BID x 1 week, then 1 qAM and 2 qHS x 1 week, then 2 BID (migraine prevention) TOPIRAMAT E 89028441938 No Longer Active Jerica Goeringer RMA Active TOPAMAX 50 MG TABS take 1 tab po BID for migraines. 12/07/10 TOPIRAMATE 29509683253 No Longer Active Jerica Goeringer RMA Ac tive TOPAMAX 100 MG TABS Take 1 tablet po bid TOPIRAMATE 4999 1507369 Active Elise Whitmore APRN Active TRIAMCINOLONE ACETONIDE 0.1 % CREA apply three times daily prn r beatrice TRIAMCINOLONE ACETONIDE 53756368271 No Longer Active Carlton Hu MD Active PAXIL 40 MG TAB take 1 tab po qday for depression PAROXETINE HCL 54009555307 Active Elise Whitmore APRN Active CHERATUSSIN AC 100-10 MG/5ML SYRP 5ml po q6hr PRN Cough GUAIFENESIN-CODEINE 93303647677 No Longer Active Carlton Hu MD Active MEDROL (REYNA) 4 MG TABS 6 tabs on day 1, 5 tabs on d ay 2, 4 tabs on day 3, 3 tabs on day 4, 2 tabs on day 5, 1 tab on day 6 METHYLPREDNISOLONE 54655327775 No Longer Active Perez Mora MD Active AZITHROMYCIN 250 MG TABS 2 po qd x 1 day, then 1 po qd x 4 days AZITHROMYCIN 27970968301 No Longer Active Perez Mora MD Active PROPRANOLOL HCL 60 MG TABS 1 PO Q D PROPRANOL OL HCL 59882132192 No Longer Active Perez Mora MD Active CHERATUSSIN AC 100-10 MG/5ML SYRP take one tsp po Q 6hours prn c ough GUAIFENESIN-CODEINE 95347566307 No Longer Active Perez Means Active AUGMENTIN 875-125 MG TAB 1 tab by mouth twice daily with food 20 12/03/31 AMOXICILLIN-POT CLAVULANATE 72222377056 No Longer Active Chanel Mora MD Active CHERATUSSIN AC 100-10 MG/5ML SYRP 1 tsp by mouth every 4 hours as needed for cough GUAIFENESIN-CODEINE 82640824456 No Longer Activ e Hugo Restrepo MD Active ACETAMINOPHEN-CODEINE #3 300-30 MG TABS 1 PO Q 4-6 HRS PRN PAIN ACETAMINOPHEN-CODEINE 06548783959 No Longer Active Hugo Restrepo MD Active LEVAQUIN 500 MG TABS take one po QD LEVOFLOXACI N 71723902230 No Longer Active Griffin HERNANDEZ Active PREDNISONE 20 MG TAB Take 3 tabs daily for 3 days , 2 tabs daily for 3 days, 1 tab daily for 3 days, 1/2 tab daily for 3 days P REDNISONE 44322951141 No Longer Active Carlton Hu MD Active AVELOX 400 MG TABS 1 tab by mouth daily MOXIFLO XACIN HCL 12036349630 No Longer Active Carlton Hu MD Active CHERATUSSIN AC 100-10 MG/5ML SYRP 1 tsp by mouth every 4 hours as needed for cough GUAIFENESIN-CODEINE 37650349607 No Longer Activ e Hugo Restrepo MD Active AVELOX 400 MG TABS 1 tab by mouth daily MOXIFLO XACIN HCL 88788390993 No Longer Active Marcy De La Rosa MD PhD Active TERBINAFINE HCL 250 MG TABS 1 qDay TERBINAF INE HCL 43427187826 No Longer Active Marcy De La Rosa MD PhD Active CHERATUSSIN AC 100-10 MG/5ML SYRP 1 tsp by mouth every 4 hours as needed for cough GUAIFENESIN-CODEINE 10937670349 No Longer Activ e Marcy De La Rosa MD PhD Active AVELOX 400 MG TABS 1 tab by mouth daily MOXIFLO XACIN HCL 56218280413 No Longer Active Marcy De La Rosa MD PhD Active HYDROCODONE-ACETAMINOPHEN 5-325 MG TABS 1 po q 6hr PRN cough 201 05/09/16 HYDROCODONE-ACETAMINOPHEN 34297243762 No Longer Active Marcy De La Rosa MD PhD Active PREDNISONE 20 MG TAB 2 tabs daily for 3 days, 1 t ab daily for 3 days, 1/2 tab daily for 2 days PREDNISONE 91856360766 No Longer Active Carlton Hu MD Active CEFDINIR 300 MG CAPS by mouth twice a day CEFDI ODILIA 21345632129 No Longer Active Carlton Hu MD Active HYDROCHLOROTHIAZIDE 25 MG TABS 1 TAB PO DAILY H YDROCHLOROTHIAZIDE 83086044120 Active Carlton Hu MD Active ACETAMINOPHEN-CODEINE #3 300-30 MG TABS 1 tablet po q 4-6hrs prn pain ACETAMINOPHEN-CODEINE 19571092465 No Longer Active Ridge Bess DO Active ZITHROMAX 250 MG TAB 2 po today, then 1 po q days 2-5 AZITHROMYCIN 76385088442 No Longer Active Carlton Hu MD Acti ve CHERATUSSIN AC 100-10 MG/5ML SYRP take 1 tsp po q4-6 hours prn c ough GUAIFENESIN-CODEINE 58592437759 No Longer Active Carlton Hu MD Active ACETAMINOPHEN-CODEINE #3 300-30 MG TABS 1 PO Q 4-6 HR PRN PAIN 2 ACETAMINOPHEN-CODEINE 70422599813 No Longer Active Carlton rich MD Active LORTAB 7.5-500 MG/15ML ELIX 7.5 ml po q 4 hour prn cough HYDROCODONE-ACETAMINOPHEN 55420097283 No Longer Active Carlton Hu MD Active PREDNISONE 20 MG TAB 1 po bid 3 days, then 1 po q day 3 days 201 05/03/07 PREDNISONE 08524345831 No Longer Active Carlton Hu MD Active ELMIRON 100 MG CAPS 2 tablets in the am and 1 tablet at hs PENTOSAN POLYSULFATE SODIUM 92983717195 Active Carlton Hu MD Ac tive CEFDINIR 300 MG CAPS by mouth twice a day CEFDI ODILIA 23256834933 No Longer Active Carlton Hu MD Active CEFDINIR 300 MG CAPS by mouth twice a day CEFDI ODILIA 86957077257 No Longer Active Carlton Hu MD Active CEFDINIR 300 MG CAPS by mouth twice a day CEFDI ODILIA 53584812010 No Longer Active Carlton Hu MD Active TESSALON PERLES 100 MG CAP 1 tablet by mouth 3 times daily a s needed for cough BENZONATATE 48323848440 No Longer Active Carlton bustamante MD Active CEFDINIR 300 MG CAPS by mouth twice a day CEFDI ODILIA 35832074386 No Longer Active Carlton Hu MD Active ZITHROMAX Z-REYNA 250 MG TABS 2 today, then 1 daily for 4 days 201 04/09/17 AZITHROMYCIN 23329901147 No Longer Active Hugo Restrepo MD Active TESSALON PERLES 100 MG CAP 1 tablet by mouth 3 times daily a s needed for cough TESSALON PERLES 100 MG CAP 486091 BENZONATATE I nactive PREDNISONE 20 MG TAB 1 po bid 3 days, then 1 po q day 3 days 201 05/03/07 PREDNISONE 20 MG TAB 339561 PREDNISONE Inactive LORTAB 7.5-500 MG/15ML ELIX 7.5 ml po q 4 hour prn cough LORTAB 7.5-500 MG/15ML ELIX HYDROCODONE-ACETAMINOPHEN Inacti ve ACETAMINOPHEN-CODEINE #3 300-30 MG TABS 1 PO Q 4-6 HR PRN PAIN 2 ACETAMINOPHEN-CODEINE #3 300-30 MG TABS 397094 ACETAMIN OPHEN-CODEINE Inactive CHERATUSSIN AC 100-10 MG/5ML SYRP take 1 tsp po q4-6 hours prn c ough CHERATUSSIN AC 100-10 MG/5ML SYRP 879281 GUAIFENESIN-CO DEINE Inactive ACETAMINOPHEN-CODEINE #3 300-30 MG TABS 1 tablet po q 4-6hrs prn pain ACETAMINOPHEN-CODEINE #3 300-30 MG TABS 776489 ACETAMIN OPHEN-CODEINE Inactive HYDROCODONE-ACETAMINOPHEN 5-325 MG TABS 1 po q 6hr PRN cough 201 05/09/16 HYDROCODONE-ACETAMINOPHEN 5-325 MG TABS 779951 HYDROCODONE-ACETAMINOPHEN Inactive AVELOX 400 MG TABS 1 tab by mouth daily A VELOX 400 MG TABS 897770 MOXIFLOXACIN HCL Inactive CHERATUSSIN AC 100-10 MG/5ML SYRP 1 tsp by mouth every 4 hours as needed for cough CHERATUSSIN AC 100-10 MG/5ML SYRP 763272 GUAIFENESIN-CODEINE Inactive TERBINAFINE HCL 250 MG TABS 1 qDay TERBINAFINE HCL 250 MG TABS 080631 TERBINAFINE HCL Inactive CHERATUSSIN AC 100-10 MG/5ML SYRP 1 tsp by mouth every 4 hours as needed for cough CHERATUSSIN AC 100-10 MG/5ML SYRP 740828 GUAIFENESIN-CODEINE Inactive ACETAMINOPHEN-CODEINE #3 300-30 MG TABS 1 PO Q 4-6 HRS PRN PAIN ACETAMINOPHEN-CODEINE #3 300-30 MG TABS 180895 ACETAMINOPHEN-CODEIN E Inactive CHERATUSSIN AC 100-10 MG/5ML SYRP 1 tsp by mouth every 4 hours as needed for cough CHERATUSSIN AC 100-10 MG/5ML SYRP 141524 GUAIFENESIN-CODEINE Inactive AUGMENTIN 875-125 MG TAB 1 tab by mouth twice daily with food 20 12/03/31 AUGMENTIN 875-125 MG TAB 344379 AMOXICILLIN-POT CLAVULA EFE Inactive CHERATUSSIN AC 100-10 MG/5ML SYRP take one tsp po Q 6hours prn c ough CHERATUSSIN AC 100-10 MG/5ML SYRP 023054 GUAIFENESIN-CO DEINE Inactive PROPRANOLOL HCL 60 MG TABS 1 PO Q D P ROPRANOLOL HCL 60 MG TABS 295323 PROPRANOLOL HCL Inactive TOPAMAX 50 MG TABS take 1 tab po BID for migraines. 12/07/10 TOPAMAX 50 MG TABS 632261 TOPIRAMATE Inactive TOPAMAX 25 MG TABS 1 qHS x 1 week, then 1 BID x 1 week, then 1 qAM and 2 qHS x 1 week, then 2 BID (migraine prevention) TOPAMAX 2 5 MG TABS 229708 TOPIRAMATE Inactive LYRICA 75 MG CAPS TAKE 1 CAPSULE BY MOUTH TWICE DAILY LYRICA 75 MG CAPS PREGABALIN Inactive SYMBICORT 160-4.5 MCG/ACT AERO 2 puffs bid with rinse after 2011 SYMBICORT 160-4.5 MCG/ACT AERO BUDESONIDE-FORMOT SÁNCHEZ FUMARATE Inactive PROMETHAZINE-CODEINE 6.25-10 MG/5ML SYRP 1 tsp by mouth ever y 8 hours prn cough PROMETHAZINE-CODEINE 6.25-10 MG/5ML SYRP 061964 PROMETHAZINE-CODEINE Inactive CYMBALTA 30 MG CPEP 1 cap by mouth daily CYMBALTA 30 MG CPEP 516965 DULOXETINE HCL Inactive PREMARIN 0.625 MG TABS TAKE 1 TAB BY MOUTH DAILY 07/25 PREMARIN 0.625 MG TABS ESTROGENS CONJUGATED Inactive CHERATUSSIN AC 100-10 MG/5ML SYRP 1 tsp by mouth every 4 hours as needed for cough CHERATUSSIN AC 100-10 MG/5ML SYRP 209689 GUAIFENESIN-CODEINE Inactive PROMETHAZINE-CODEINE 6.25-10 MG/5ML SYRP 1 tsp by mout h every 6 hours if needed for cough PROMETHAZINE-CODEINE 6.25-10 MG/5ML SYRP 655467 PROMETHAZINE-CODEINE Inactive CHERATUSSIN AC 100-10 MG/5ML SYRP 1 tsp by mouth every 4 hours as needed for cough CHERATUSSIN AC 100-10 MG/5ML SYRP 306629 GUAIFENESIN-CODEINE Inactive FLUTICASONE PROPIONATE 50 MCG/ACT SUSP 1 to 2 sprays each no stril daily FLUTICASONE PROPIONATE 50 MCG/ACT SUSP 8680543 FLUTICASONE PROPIONATE Inactive PREDNISONE 20 MG ORAL TABS 3 tab PO qd x 2d, 2 tab PO qd x 2d, 1 tab PO qd x 2d, 1/2 tab PO qd x 2d PREDNISONE 20 MG ORAL TABS 758599 PREDNISONE Inactive LEVOFLOXACIN 500 MG ORAL TABS 1 tab PO daily x 10 days LEVOFLOXACIN 500 MG ORAL TABS 985566 LEVOFLOXACIN Inactive CYCLOBENZAPRINE HCL 10 MG TABS 1 tablet by mouth BID prn had cherelle n CYCLOBENZAPRINE HCL 10 MG TABS 627988 CYCLOBENZAPRINE H CL Inactive ZOCOR 40 MG TAB 1 tab by mouth daily ZOCOR 40 M G TAB 708492 SIMVASTATIN Inactive ZITHROMAX Z-REYNA 250 MG TABS 2 today, then 1 daily for 4 days 201 04/09/17 ZITHROMAX Z-REYNA 250 MG TABS 3473590 AZITHROMYCIN Inac tive CEFDINIR 300 MG CAPS by mouth twice a day CEFDINIR 300 MG CAPS 20020704 CEFDINIR Inactive CEFDINIR 300 MG CAPS by mouth twice a day CEFDINIR 300 MG CAPS 20020704 CEFDINIR Inactive CEFDINIR 300 MG CAPS by mouth twice a day CEFDINIR 300 MG CAPS 565521 CEFDINIR Inactive CEFDINIR 300 MG CAPS by mouth twice a day CEFDINIR 300 MG CAPS 296436 CEFDINIR Inactive ZITHROMAX 250 MG TAB 2 po today, then 1 po q days 2-5 ZITHROMAX 250 MG TAB 5627258 AZITHROMYCIN Inactive CEFDINIR 300 MG CAPS by mouth twice a day CEFDINIR 300 MG CAPS 20020704 CEFDINIR Inactive PREDNISONE 20 MG TAB 2 tabs daily for 3 days, 1 t ab daily for 3 days, 1/2 tab daily for 2 days PREDNISONE 20 MG TAB 765542 PREDNISON E Inactive AVELOX 400 MG TABS 1 tab by mouth daily A VELOX 400 MG TABS 220576 MOXIFLOXACIN HCL Inactive AVELOX 400 MG TABS 1 tab by mouth daily A VELOX 400 MG TABS 220569 MOXIFLOXACIN HCL Inactive PREDNISONE 20 MG TAB Take 3 tabs daily for 3 days , 2 tabs daily for 3 days, 1 tab daily for 3 days, 1/2 tab daily for 3 days PREDNISONE 20 MG TAB 540041 PREDNISONE Inactive LEVAQUIN 500 MG TABS take one po QD LEVAQUIN 50 0 MG TABS 270682 LEVOFLOXACIN Inactive AZITHROMYCIN 250 MG TABS 2 po qd x 1 day, then 1 po qd x 4 days AZITHROMYCIN 250 MG TABS 9992988 AZITHROMYCIN Inactiv e MEDROL (REYNA) 4 MG TABS 6 tabs on day 1, 5 tabs on d ay 2, 4 tabs on day 3, 3 tabs on day 4, 2 tabs on day 5, 1 tab on day 6 MEDROL (REYNA) 4 MG TABS 126448 METHYLPREDNISOLONE Inactive CHERATUSSIN AC 100-10 MG/5ML SYRP 5ml po q6hr PRN Cough CHERATUSSIN AC 100-10 MG/5ML SYRP 809384 GUAIFENESIN-CODEINE Inacti ve TRIAMCINOLONE ACETONIDE 0.1 % CREA apply three times daily prn r beatrice TRIAMCINOLONE ACETONIDE 0.1 % CREA 0109435 TRIAMCINOLONE ACETONIDE Inactive AZITHROMYCIN 250 MG TABS 2 po qd x 1 day, then 1 po qd x 4 days AZITHROMYCIN 250 MG TABS 9365214 AZITHROMYCIN Inactiv e MEDROL (REYNA) 4 MG TABS 6 pills x 1 day, then 5 pill s x 1 day then 4 pills x 1 day, then 3 pills x 1 day, then 2 pills x 1 day, then 1 pill x 1 day, then stop MEDROL (REYNA) 4 MG TABS 899264 METHYLPREDNISOLONE Inactive AMOXICILLIN 500 MG CAP 1 tab by mouth 3 times daily x 10 days 20 13/03/08 AMOXICILLIN 500 MG CAP 585329 AMOXICILLIN Inactive AMOXICILLIN 500 MG CAP 1 tab by mouth 3 times daily x 10 days 20 14/04/28 AMOXICILLIN 500 MG CAP 863150 AMOXICILLIN Inactive ZITHROMAX 250 MG TAB 2 po today, then 1 po q days 2-5 ZITHROMAX 250 MG TAB 4508453 AZITHROMYCIN Inactive AUGMENTIN 875-125 MG TAB 1 po BID x 10 days AUGMENTIN 875- 125 MG TAB 750192 AMOXICILLIN-POT CLAVULANATE Inactive ZITHROMAX Z-REYNA 250 MG TABS 2 today, then 1 daily for 4 days 201 08/07/20 ZITHROMAX Z-REYNA 250 MG TABS 5654669 AZITHROMYCIN Inac tive ZITHROMAX 250 MG TAB 2 po today, then 1 po q days 2-5 ZITHROMAX 250 MG TAB 2608790 AZITHROMYCIN Inactive ZITHROMAX Z-REYNA 250 MG TABS 2 today, then 1 daily for 4 days 201 08/30/03 ZITHROMAX Z-REYNA 250 MG TABS 8959886 AZITHROMYCIN Inac tive CEFDINIR 300 MG CAPS 1 po BID x 10 days C EFDINIR 300 MG CAPS 182862 CEFDINIR Inactive ZITHROMAX 250 MG TAB 2 po today, then 1 po q days 2-5 ZITHROMAX 250 MG TAB 0747214 AZITHROMYCIN Inactive LEVAQUIN 500 MG TAB 1 tablet by mouth daily LEVAQUIN 500 MG TAB 722856 LEVOFLOXACIN Inactive SINGULAIR 10 MG TABS 1 po qday for allergies 2 SINGULAIR 10 MG TABS 209110 MONTELUKAST SODIUM Inactive Vital Signs Date Name Value Unit [...] Measured Encounters Code Encounter Date Provider Facility CPT-57558 Level 3 Est. Patient 14:22:19 GUN STOCK MAKER Diya cobian APRN [facility] CPT-11964 Level 3 Est. Patient 10:11:46 CDT Carlton rich MD [facility] CPT-70424 Level 3 Est. Patient 17:29:43 CDT Elise Cesar spaulding SURGICAL ONCOLOGIST [facility] CPT-29011 Level 3 Est. Patient 11:58:06 CDT Elise And chelly SURGICAL ONCOLOGIST [facility] CPT-87446 Level 4 Est. Patient 14:36:51 CDT Carlton rich MD [facility]-45391 Level 3 Est. Patient 18:16:00 GUN STOCK MAKER Blaine Freeman [facility]-40477 Level 3 Est. Patient 09:45:49 GUN STOCK MAKER Carlton rich MD [facility]-37185 Level 3 Est. Patient 13:19:20 CDT Carlton rich MD [facility]-35099 Level 3 Est. Patient 13:06:43 CDT Ridge tam DO [facility] CPT-77367 Level 3 Est. Patient 10:03:07 CDT Perez Mora MD [facility] CPT-12454 Level 3 Est. Patient 19:50:35 GUN STOCK MAKER Carlton rich MD [facility]-62265 Level 4 Est. Patient 18:05:01 GUN STOCK MAKER Carlton rich MD [facility] CPT-60435 Level 3 Est. Patient 10:45:55 GUN STOCK MAKER Hugo Restrepo MD [facility] CPT-23724 Level 3 Est. Patient 14:12:49 CDT Griffin lincoln [facility]-62896 Level 3 Est. Patient 17:37:24 CDT Carlton rich MD [facility]-69705 Level 3 Est. Patient 16:51:54 CDT Carlton rich MD [facility]-90965 Level 3 Est. Patient 12:18:11 CDT Hugo Restrepo MD [facility] CPT-54595 Level 3 Est. Patient 11:30:25 CDT Marcy crisostomo MD PhD [facility] CPT-87007 Level 3 Est. Patient 12:00:47 GUN STOCK MAKER Carlton rich MD [facility] CPT-16729 Level 3 Est. Patient 16:31:06 GUN STOCK MAKER Carlton rich MD [facility] CPT-57254 Level 3 Est. Patient 16:23:24 GUN STOCK MAKER Ridge tam [facility] CPT-64535 Level 3 Est. Patient 12:34:12 CDT Carlton rich MD [facility] CPT-54921 Level 2 Est. Patient 15:43:33 CDT Robi armstrong MD [facility] CPT-21700 Level 4 Est. Patient 14:04:44 CDT Carlton rich MD [facility] CPT-83644 Level 3 Est. Patient 05:47:59 CDT Ridge tam [facility] CPT-34927 Level 3 Est. Patient 13:12:53 GUN STOCK MAKER Carlton rich MD [facility] CPT-93929 Level 3 Est. Patient 14:26:53 CDT Hugo Restrepo MD [facility] Procedures Code Procedure Name Date Entry Date Standard Desc ription CPT-J0696 Rocephin 1gm Inj Solr 14:32:13 CDT CPT-J1020 Depo Medrol 60 mg (Methyl Prednisolone A cetate) 14:32:13 CDT CPT-J1100 Decadron 6mg (Dexamethasone) 14:32:13 CDT 2 CPT-32245 Hip bilat min 2V w AP pelvis 13:16:20 CDT 2 015/04/27 CPT-28821 Pelvis only 13:07:33 CDT CPT-02199 Spec Collection and Handling Fee 11:25:12 C DT CPT-54494 Fluzone Quadrivalent Intramuscular Suspe nsion 0.5 ML 14:31:55 CDT CPT-78927 Abx/Therapy Injection 13:28:47 GUN STOCK MAKER CPT-J2930 Solu Medrol 125 mg (Methyl Prednisolone Sodium Succinate) 12:00:47 GUN STOCK MAKER CPT-86061 Venipuncture Draw Fee 11:33:31 CDT CPT-60552 EKG Trac and Interp 11:21:09 CDT CPT-61707 Chest 2V Frontal and Lat 11:21:09 CDT 12/15 CPT-92300 Venipuncture Draw Fee 08:02:34 CDT CPT-70230 Chest 2V Frontal and Lat 05:47:59 CDT 06/05
--- OUTSIDE RECORDS SUMMARY | 2019-10-08 08:28 | XMS REPORT | Clinical Summary ---
Author Author Caitlin, Juliana Martinez Organization [employer] [facility] Address Unknown Phone Unavailable Allergies, [...] sites Sinusitis 473.9 Active Diya De Guzman PROTEIN CHEMIST Unspecified sinusitis (chronic) Bronchitis-Acute 466.0 Active Carlton Hu MD Acute bronchitis URI - acute 465.9 Active Elise Whitmore PROTEIN CHEMIST Acute upper respiratory infections of unspecified site Pharyngitis acute 462 Active Elise Whitmore A PRN Acute pharyngitis Rhinitis, acute 460 Active Elise Whitmore APR N Acute nasopharyngitis [common cold] Sinusitis 473.9 Active Diya De Guzman PROTEIN CHEMIST Unspecified sinusitis (chronic) Bronchitis 490 Active Diya De Guzman PROTEIN CHEMIST Bronchitis, not specified as acute or chronic [...] a d ay as needed ALBUTEROL SULFATE 86883935438 Active Jillina Frakerriel APR N Active MUCINEX DM MAXIMUM STRENGTH 60-1200 MG [id number] 1 tab po q am 2016 DEXTROMETHORPHAN-GUAIFENESIN 49569251479 Active Jillina Frazell PROTEIN CHEMIST Active TUSSIONEX PENNKINETIC ER 10-8 MG/5ML LQCR 5ml po q12hr PRN Cough 20 14/06/21 HYDROCOD POLST-CHLORPHEN POLST 01860439035 Active Jillina Frazell PROTEIN CHEMIST Active PREDNISONE 20 MG TAB 2 tabs daily for 3 days, 1 t ab daily for 3 days, 1/2 tab daily for 2 days PREDNISONE 29706679401 Active Jillina Cesarl PROTEIN CHEMIST Active TUSSIONEX PENNKINETIC ER 10-8 MG/5ML ORAL LQCR 5 mL PO q 12 hrs PRN cough HYDROCOD POLST-CHLORPHEN POLST 92196004518 No Longer Active Jillina Frazell PROTEIN CHEMIST Active FLUTICASONE PROPIONATE 50 MCG/ACT SUSP 2 sprays each n ostril daily until bottle is empty FLUTICASONE PROPIONATE 72983333670 No Longer Ac tive Jillina Frazell PROTEIN CHEMIST Active ASMANEX 60 METERED DOSES 220 MCG/INH AEPB 1 puff bid with ri nse after MOMETASONE FUROATE 05836043842 No Longer Active Venullina Darlin ell PROTEIN CHEMIST Active ZITHROMAX Z-REYNA 250 MG TABS 2 today, then 1 daily for 4 days 201 09/29/14 AZITHROMYCIN 06393226855 No Longer Active Elise Whitmore APRN Active TUSSIONEX PENNKINETIC ER 10-8 MG/5ML LQCR 5ml po q12hr PRN Cough HYDROCOD POLST-CHLORPHEN POLST 65333154069 No Longer Active Elise Whitmore APRN Active MUCINEX D 60-600 MG [id number] 1 tab po q am PSEUDOEPHEDRINE-GUAIFENESIN 80039317248 Active Jillina Frazell PROTEIN CHEMIST Active PREDNISONE 20 MG TAB 2 tabs daily for 3 days, 1 t ab daily for 3 days, 1/2 tab daily for 2 days PREDNISONE 86324378720 No Longer Active Jillina Frazell PROTEIN CHEMIST Active AMOXICILLIN 500 MG CAPS 2 po BID x 10 days AMOX ICILLIN 80148354058 No Longer Active Jillina Frazell PROTEIN CHEMIST Active SINGULAIR 10 MG TABS 1 po qday for allergies 2 MONTELUKAST SODIUM 49945966449 No Longer Active Carlton Hu MD Acti ve LEVAQUIN 500 MG TAB 1 tablet by mouth daily LEV OFLOXACIN 26629484134 No Longer Active Carlton Hu MD Active FLUTICASONE PROPIONATE 50 MCG/ACT SUSP 2 sprays each n ostril daily for 2 weeks, then 1 spray each nostril daily. FLUTICASONE PRO PIONATE 56743856202 Active Elise Whitmore APRN Active ZITHROMAX 250 MG TAB 2 po today, then 1 po q days 2-5 AZITHROMYCIN 33501973594 No Longer Active Elise Whitmore APRN Acti ve XANAX 0.5 MG TABS one tablet by mouth daily prn anxiety ALPRAZOLAM 59976632750 Active Elise Whitmore APRN Active CYMBALTA 30 MG CPEP 1 cap by mouth daily for depression DULOXETINE HCL 77663505598 Active Carlton Hu MD Active CEFDINIR 300 MG CAPS 1 po BID x 10 days CEFDINI R 73879751068 No Longer Active Carlton Hu MD Active ZOCOR 40 MG TAB 1 tab by mouth daily SIMVASTATI N 24016796273 No Longer Active Carlton Hu MD Active CYCLOBENZAPRINE HCL 10 MG TABS 1 tablet by mouth BID prn had cheerlle n CYCLOBENZAPRINE HCL 03783402197 No Longer Active Carlton Hu MD Active LEVOFLOXACIN 500 MG ORAL TABS 1 tab PO daily x 10 days LEVOFLOXACIN 36717366948 No Longer Active Carlton Hu MD Acti ve PREDNISONE 20 MG ORAL TABS 3 tab PO qd x 2d, 2 tab PO qd x 2d, 1 tab PO qd x 2d, 1/2 tab PO qd x 2d PREDNISONE 22846463085 No Longer Active Carlton Hu MD Active FLUTICASONE PROPIONATE 50 MCG/ACT SUSP 1 to 2 sprays each no stril daily FLUTICASONE PROPIONATE 47975987215 No Longer Active T jaz HERNANDEZ Active CHERATUSSIN AC 100-10 MG/5ML SYRP 1 tsp by mouth every 4 hours as needed for cough GUAIFENESIN-CODEINE 12081210196 No Longer Activ e Blaine HERNANDEZ Active PROMETHAZINE-CODEINE 6.25-10 MG/5ML SYRP 1 tsp by mout h every 6 hours if needed for cough PROMETHAZINE-CODEINE 93155153586 No Long er Active Blaine HERNANDEZ Active CHERATUSSIN AC 100-10 MG/5ML SYRP 1 tsp by mouth every 4 hours as needed for cough GUAIFENESIN-CODEINE 67564844144 No Longer Activ e Blaine HERNANDEZ Active ZITHROMAX Z-REYNA 250 MG TABS 2 today, then 1 daily for 4 days 201 08/30/03 AZITHROMYCIN 19365252108 No Longer Active Columbabrady Parrish Act nael ZITHROMAX 250 MG TAB 2 po today, then 1 po q days 2-5 AZITHROMYCIN 31748453856 No Longer Active Carlton Hu MD Acti ve ZITHROMAX Z-REYNA 250 MG TABS 2 today, then 1 daily for 4 days 201 08/07/20 AZITHROMYCIN 31856390900 No Longer Active Columba Parrish Act nael AUGMENTIN 875-125 MG TAB 1 po BID x 10 days AMOXICILLIN- POT CLAVULANATE 53115187743 No Longer Active Diya De Guzman APRN Active ZITHROMAX 250 MG TAB 2 po today, then 1 po q days 2-5 AZITHROMYCIN 24136186974 No Longer Active Carlton Hu MD Acti ve TRAMADOL HCL 50 MG TABS 1 po tid with ES Tylenol TRAMADOL HCL 31216189798 Active Carlton Hu MD Active PREMARIN 0.625 MG TABS TAKE 1 TAB BY MOUTH DAILY 07/25 ESTROGENS CONJUGATED 90323801833 No Longer Active Ridge Bess DO Active CYMBALTA 30 MG CPEP 1 cap by mouth daily DULOXE SNEHA HCL 70101702141 No Longer Active Ridge Bess DO Active AMOXICILLIN 500 MG CAP 1 tab by mouth 3 times daily x 10 days 20 14/04/28 AMOXICILLIN 41933894964 No Longer Active Carlton Hu MD Active AMOXICILLIN 500 MG CAP 1 tab by mouth 3 times daily x 10 days 20 13/03/08 AMOXICILLIN 75361520395 No Longer Active Carlton Hu MD Active PROMETHAZINE-CODEINE 6.25-10 MG/5ML SYRP 1 tsp by mouth ever y 8 hours prn cough PROMETHAZINE-CODEINE 20573980856 No Longer Active Robert Hu MD Active MEDROL (REYNA) 4 MG TABS 6 pills x 1 day, then 5 pill s x 1 day then 4 pills x 1 day, then 3 pills x 1 day, then 2 pills x 1 day, then 1 pill x 1 day, then stop METHYLPREDNISOLONE 21629212977 No Longer Active Parris Mora MD Active AZITHROMYCIN 250 MG TABS 2 po qd x 1 day, then 1 po qd x 4 days AZITHROMYCIN 42348602127 No Longer Active Perez Mora MD Active SYMBICORT 160-4.5 MCG/ACT AERO 2 puffs bid with rinse after 2011 BUDESONIDE-FORMOTEROL FUMARATE 93727591472 No Longer Active Perez Mora MD Active LYRICA 75 MG CAPS TAKE 1 CAPSULE BY MOUTH TWICE DAILY 2013 PREGABALIN 94901506853 No Longer Active Carlton Hu MD Active LYRICA 100 MG CAPS Take 1 tab po BID for fibromyalgia PREGABALIN 74079639089 Active Carlton Hu MD Active TOPAMAX 25 MG TABS 1 qHS x 1 week, then 1 BID x 1 week, then 1 qAM and 2 qHS x 1 week, then 2 BID (migraine prevention) TOPIRAMAT E 94250312040 No Longer Active Jerica FUENTES Active TOPAMAX 50 MG TABS take 1 tab po BID for migraines. 12/07/10 TOPIRAMATE 24942322943 No Longer Active Jerica FUENTES Ac tive TOPAMAX 100 MG TABS Take 1 tablet po bid TOPIRAMATE 4999 6330664 Active Elise Whitmore APRN Active TRIAMCINOLONE ACETONIDE 0.1 % CREA apply three times daily prn r beatrice TRIAMCINOLONE ACETONIDE 51386985832 No Longer Active Carlton Hu MD Active PAXIL 40 MG TAB take 1 tab po qday for depression PAROXETINE HCL 72372902637 Active Elise Whitmore APRN Active CHERATUSSIN AC 100-10 MG/5ML SYRP 5ml po q6hr PRN Cough GUAIFENESIN-CODEINE 14390261898 No Longer Active Carlton Hu MD Active MEDROL (REYNA) 4 MG TABS 6 tabs on day 1, 5 tabs on d ay 2, 4 tabs on day 3, 3 tabs on day 4, 2 tabs on day 5, 1 tab on day 6 METHYLPREDNISOLONE 32890549891 No Longer Active Perez Mora MD Active AZITHROMYCIN 250 MG TABS 2 po qd x 1 day, then 1 po qd x 4 days AZITHROMYCIN 84750651231 No Longer Active Perez Moar MD Active PROPRANOLOL HCL 60 MG TABS 1 PO Q D PROPRANOL OL HCL 35460609717 No Longer Active Perez Mora MD Active CHERATUSSIN AC 100-10 MG/5ML SYRP take one tsp po Q 6hours prn c ough GUAIFENESIN-CODEINE 66808017033 No Longer Active Perez Means Active AUGMENTIN 875-125 MG TAB 1 tab by mouth twice daily with food 20 12/03/31 AMOXICILLIN-POT CLAVULANATE 05385373341 No Longer Active Chanel Mora MD Active CHERATUSSIN AC 100-10 MG/5ML SYRP 1 tsp by mouth every 4 hours as needed for cough GUAIFENESIN-CODEINE 41797891545 No Longer Activ e Hugo Restrepo MD Active ACETAMINOPHEN-CODEINE #3 300-30 MG TABS 1 PO Q 4-6 HRS PRN PAIN ACETAMINOPHEN-CODEINE 63835204142 No Longer Active Hugo Restrepo MD Active LEVAQUIN 500 MG TABS take one po QD LEVOFLOXACI N 75806947915 No Longer Active Griffin HERNANDEZ Active PREDNISONE 20 MG TAB Take 3 tabs daily for 3 days , 2 tabs daily for 3 days, 1 tab daily for 3 days, 1/2 tab daily for 3 days P REDNISONE 71489477328 No Longer Active Carlton Hu MD Active AVELOX 400 MG TABS 1 tab by mouth daily MOXIFLO XACIN HCL 95014855088 No Longer Active Carlton Hu MD Active CHERATUSSIN AC 100-10 MG/5ML SYRP 1 tsp by mouth every 4 hours as needed for cough GUAIFENESIN-CODEINE 66219081218 No Longer Activ e Hugo Restrepo MD Active AVELOX 400 MG TABS 1 tab by mouth daily MOXIFLO XACIN HCL 05768831152 No Longer Active Marcy De La Rosa MD PhD Active TERBINAFINE HCL 250 MG TABS 1 qDay TERBINAF INE HCL 35949666092 No Longer Active Marcy De La Rosa MD PhD Active CHERATUSSIN AC 100-10 MG/5ML SYRP 1 tsp by mouth every 4 hours as needed for cough GUAIFENESIN-CODEINE 03494298974 No Longer Activ e Marcy De La Rosa MD PhD Active AVELOX 400 MG TABS 1 tab by mouth daily MOXIFLO XACIN HCL 86306686134 No Longer Active Marcy De La Rosa MD PhD Active HYDROCODONE-ACETAMINOPHEN 5-325 MG TABS 1 po q 6hr PRN cough 201 05/09/16 HYDROCODONE-ACETAMINOPHEN 86688843437 No Longer Active Marcy De La Rosa MD PhD Active PREDNISONE 20 MG TAB 2 tabs daily for 3 days, 1 t ab daily for 3 days, 1/2 tab daily for 2 days PREDNISONE 64930293781 No Longer Active Carlton Hu MD Active CEFDINIR 300 MG CAPS by mouth twice a day CEFDI ODILIA 73279299626 No Longer Active Carlton Hu MD Active HYDROCHLOROTHIAZIDE 25 MG TABS 1 TAB PO DAILY H YDROCHLOROTHIAZIDE 21628539448 Active Carlton Hu MD Active ACETAMINOPHEN-CODEINE #3 300-30 MG TABS 1 tablet po q 4-6hrs prn pain ACETAMINOPHEN-CODEINE 32478147098 No Longer Active Ridge Bess DO Active ZITHROMAX 250 MG TAB 2 po today, then 1 po q days 2-5 AZITHROMYCIN 76157523127 No Longer Active Carlton Hu MD Acti ve CHERATUSSIN AC 100-10 MG/5ML SYRP take 1 tsp po q4-6 hours prn c ough GUAIFENESIN-CODEINE 27633560809 No Longer Active Carlton Hu MD Active ACETAMINOPHEN-CODEINE #3 300-30 MG TABS 1 PO Q 4-6 HR PRN PAIN 2 ACETAMINOPHEN-CODEINE 04090734514 No Longer Active Carlton rich MD Active LORTAB 7.5-500 MG/15ML ELIX 7.5 ml po q 4 hour prn cough HYDROCODONE-ACETAMINOPHEN 30722420195 No Longer Active Carlton Hu MD Active PREDNISONE 20 MG TAB 1 po bid 3 days, then 1 po q day 3 days 201 05/03/07 PREDNISONE 34972404384 No Longer Active Carlton Hu MD Active ELMIRON 100 MG CAPS 2 tablets in the am and 1 tablet at hs PENTOSAN POLYSULFATE SODIUM 42482181705 Active Carlton Hu MD Ac tive CEFDINIR 300 MG CAPS by mouth twice a day CEFDI ODILIA 70277931230 No Longer Active Carlton Hu MD Active CEFDINIR 300 MG CAPS by mouth twice a day CEFDI ODILIA 52359065952 No Longer Active Carlton Hu MD Active CEFDINIR 300 MG CAPS by mouth twice a day CEFDI ODILIA 90237362903 No Longer Active Carlton Hu MD Active TESSALON PERLES 100 MG CAP 1 tablet by mouth 3 times daily a s needed for cough BENZONATATE 70401115827 No Longer Active Carlton bustamante MD Active CEFDINIR 300 MG CAPS by mouth twice a day CEFDI ODILIA 51892312995 No Longer Active Carlton Hu MD Active ZITHROMAX Z-REYNA 250 MG TABS 2 today, then 1 daily for 4 days 201 04/09/17 AZITHROMYCIN 13780794796 No Longer Active Hugo Restrepo MD Active TESSALON PERLES 100 MG CAP 1 tablet by mouth 3 times daily a s needed for cough TESSALON PERLES 100 MG CAP 485013 BENZONATATE I nactive PREDNISONE 20 MG TAB 1 po bid 3 days, then 1 po q day 3 days 201 05/03/07 PREDNISONE 20 MG TAB 179573 PREDNISONE Inactive LORTAB 7.5-500 MG/15ML ELIX 7.5 ml po q 4 hour prn cough LORTAB 7.5-500 MG/15ML ELIX HYDROCODONE-ACETAMINOPHEN Inacti ve ACETAMINOPHEN-CODEINE #3 300-30 MG TABS 1 PO Q 4-6 HR PRN PAIN 2 ACETAMINOPHEN-CODEINE #3 300-30 MG TABS 910690 ACETAMIN OPHEN-CODEINE Inactive CHERATUSSIN AC 100-10 MG/5ML SYRP take 1 tsp po q4-6 hours prn c ough CHERATUSSIN AC 100-10 MG/5ML SYRP 337713 GUAIFENESIN-CO DEINE Inactive ACETAMINOPHEN-CODEINE #3 300-30 MG TABS 1 tablet po q 4-6hrs prn pain ACETAMINOPHEN-CODEINE #3 300-30 MG TABS 880631 ACETAMIN OPHEN-CODEINE Inactive HYDROCODONE-ACETAMINOPHEN 5-325 MG TABS 1 po q 6hr PRN cough 201 05/09/16 HYDROCODONE-ACETAMINOPHEN 5-325 MG TABS 628601 HYDROCODONE-ACETAMINOPHEN Inactive AVELOX 400 MG TABS 1 tab by mouth daily A VELOX 400 MG TABS 876079 MOXIFLOXACIN HCL Inactive CHERATUSSIN AC 100-10 MG/5ML SYRP 1 tsp by mouth every 4 hours as needed for cough CHERATUSSIN AC 100-10 MG/5ML SYRP 215934 GUAIFENESIN-CODEINE Inactive TERBINAFINE HCL 250 MG TABS 1 qDay TERBINAFINE HCL 250 MG TABS 976111 TERBINAFINE HCL Inactive CHERATUSSIN AC 100-10 MG/5ML SYRP 1 tsp by mouth every 4 hours as needed for cough CHERATUSSIN AC 100-10 MG/5ML SYRP 785647 GUAIFENESIN-CODEINE Inactive ACETAMINOPHEN-CODEINE #3 300-30 MG TABS 1 PO Q 4-6 HRS PRN PAIN ACETAMINOPHEN-CODEINE #3 300-30 MG TABS 573411 ACETAMINOPHEN-CODEIN E Inactive CHERATUSSIN AC 100-10 MG/5ML SYRP 1 tsp by mouth every 4 hours as needed for cough CHERATUSSIN AC 100-10 MG/5ML SYRP 228703 GUAIFENESIN-CODEINE Inactive AUGMENTIN 875-125 MG TAB 1 tab by mouth twice daily with food 20 12/03/31 AUGMENTIN 875-125 MG TAB 794886 AMOXICILLIN-POT CLAVULA EFE Inactive CHERATUSSIN AC 100-10 MG/5ML SYRP take one tsp po Q 6hours prn c ough CHERATUSSIN AC 100-10 MG/5ML SYRP 843835 GUAIFENESIN-CO DEINE Inactive PROPRANOLOL HCL 60 MG TABS 1 PO Q D P ROPRANOLOL HCL 60 MG TABS 232097 PROPRANOLOL HCL Inactive TOPAMAX 50 MG TABS take 1 tab po BID for migraines. 12/07/10 TOPAMAX 50 MG TABS 353458 TOPIRAMATE Inactive TOPAMAX 25 MG TABS 1 qHS x 1 week, then 1 BID x 1 week, then 1 qAM and 2 qHS x 1 week, then 2 BID (migraine prevention) TOPAMAX 2 5 MG TABS 200336 TOPIRAMATE Inactive LYRICA 75 MG CAPS TAKE 1 CAPSULE BY MOUTH TWICE DAILY LYRICA 75 MG CAPS PREGABALIN Inactive SYMBICORT 160-4.5 MCG/ACT AERO 2 puffs bid with rinse after 2011 SYMBICORT 160-4.5 MCG/ACT AERO BUDESONIDE-FORMOT SÁNCHEZ FUMARATE Inactive PROMETHAZINE-CODEINE 6.25-10 MG/5ML SYRP 1 tsp by mouth ever y 8 hours prn cough PROMETHAZINE-CODEINE 6.25-10 MG/5ML SYRP 806823 PROMETHAZINE-CODEINE Inactive CYMBALTA 30 MG CPEP 1 cap by mouth daily CYMBALTA 30 MG CPEP 586003 DULOXETINE HCL Inactive PREMARIN 0.625 MG TABS TAKE 1 TAB BY MOUTH DAILY 07/25 PREMARIN 0.625 MG TABS ESTROGENS CONJUGATED Inactive CHERATUSSIN AC 100-10 MG/5ML SYRP 1 tsp by mouth every 4 hours as needed for cough CHERATUSSIN AC 100-10 MG/5ML SYRP 161795 GUAIFENESIN-CODEINE Inactive PROMETHAZINE-CODEINE 6.25-10 MG/5ML SYRP 1 tsp by mout h every 6 hours if needed for cough PROMETHAZINE-CODEINE 6.25-10 MG/5ML SYRP 985224 PROMETHAZINE-CODEINE Inactive CHERATUSSIN AC 100-10 MG/5ML SYRP 1 tsp by mouth every 4 hours as needed for cough CHERATUSSIN AC 100-10 MG/5ML SYRP 296978 GUAIFENESIN-CODEINE Inactive FLUTICASONE PROPIONATE 50 MCG/ACT SUSP 1 to 2 sprays each no stril daily FLUTICASONE PROPIONATE 50 MCG/ACT SUSP 0172516 FLUTICASONE PROPIONATE Inactive PREDNISONE 20 MG ORAL TABS 3 tab PO qd x 2d, 2 tab PO qd x 2d, 1 tab PO qd x 2d, 1/2 tab PO qd x 2d PREDNISONE 20 MG ORAL TABS 030406 PREDNISONE Inactive LEVOFLOXACIN 500 MG ORAL TABS 1 tab PO daily x 10 days LEVOFLOXACIN 500 MG ORAL TABS 465896 LEVOFLOXACIN Inactive CYCLOBENZAPRINE HCL 10 MG TABS 1 tablet by mouth BID prn had cherelle n CYCLOBENZAPRINE HCL 10 MG TABS 268319 CYCLOBENZAPRINE H CL Inactive ZOCOR 40 MG TAB 1 tab by mouth daily ZOCOR 40 M G TAB 544357 SIMVASTATIN Inactive TUSSIONEX PENNKINETIC ER 10-8 MG/5ML [...] empty FLUTICASONE PROPIONATE 50 MCG/ACT SUSP 17 43805 FLUTICASONE PROPIONATE Inactive TUSSIONEX PENNKINETIC ER 10-8 MG/5ML ORAL LQCR 5 mL PO q 12 hrs PRN cough TUSSIONEX PENNKINETIC ER 10-8 MG/5ML ORAL LQCR HYDROCOD POLST-CHLORPHEN POLST Inactive ZITHROMAX Z-REYNA 250 MG TABS 2 today, then 1 daily for 4 days 201 04/09/17 ZITHROMAX Z-REYNA 250 MG TABS 3060708 AZITHROMYCIN Inac tive CEFDINIR 300 MG CAPS [...] q days 2-5 ZITHROMAX 250 MG TAB 3378713 AZITHROMYCIN Inactive CEFDINIR 300 MG CAPS by mouth twice a day CEFDINIR 300 MG CAPS 20020704 CEFDINIR Inactive PREDNISONE 20 MG TAB 2 tabs daily for 3 days, 1 t ab daily for 3 days, 1/2 tab daily for 2 days PREDNISONE 20 MG TAB 771541 PREDNISON E Inactive AVELOX 400 MG TABS 1 tab by mouth daily A VELOX 400 MG TABS 478575 MOXIFLOXACIN HCL Inactive AVELOX 400 MG TABS 1 tab by mouth daily A VELOX 400 MG TABS 076527 MOXIFLOXACIN HCL Inactive PREDNISONE 20 MG TAB Take 3 tabs daily for 3 days , 2 tabs daily for 3 days, 1 tab daily for 3 days, 1/2 tab daily for 3 days PREDNISONE 20 MG TAB 508615 PREDNISONE Inactive LEVAQUIN 500 MG TABS take one po QD LEVAQUIN 50 0 MG TABS 566151 LEVOFLOXACIN Inactive AZITHROMYCIN 250 MG TABS 2 po qd x 1 day, then 1 po qd x 4 days AZITHROMYCIN 250 MG TABS 1689713 AZITHROMYCIN Inactiv e MEDROL (REYNA) 4 MG TABS 6 tabs on day 1, 5 tabs on d ay 2, 4 tabs on day 3, 3 tabs on day 4, 2 tabs on day 5, 1 tab on day 6 MEDROL (REYNA) 4 MG TABS 786385 METHYLPREDNISOLONE Inactive CHERATUSSIN AC 100-10 MG/5ML SYRP 5ml po q6hr PRN Cough CHERATUSSIN AC 100-10 MG/5ML SYRP 749871 GUAIFENESIN-CODEINE Inacti ve TRIAMCINOLONE ACETONIDE 0.1 % CREA apply three times daily prn r beatrice TRIAMCINOLONE ACETONIDE 0.1 % CREA 3338793 TRIAMCINOLONE ACETONIDE Inactive AZITHROMYCIN 250 MG TABS 2 po qd x 1 day, then 1 po qd x 4 days AZITHROMYCIN 250 MG TABS 4511738 AZITHROMYCIN Inactiv e MEDROL (REYNA) 4 MG TABS 6 pills x 1 day, then 5 pill s x 1 day then 4 pills x 1 day, then 3 pills x 1 day, then 2 pills x 1 day, then 1 pill x 1 day, then stop MEDROL (REYNA) 4 MG TABS 666620 METHYLPREDNISOLONE Inactive AMOXICILLIN 500 MG CAP 1 tab by mouth 3 times daily x 10 days 20 13/03/08 AMOXICILLIN 500 MG CAP 859326 AMOXICILLIN Inactive AMOXICILLIN 500 MG CAP 1 tab by mouth 3 times daily x 10 days 20 14/04/28 AMOXICILLIN 500 MG CAP 778038 AMOXICILLIN Inactive ZITHROMAX 250 MG TAB 2 po today, then 1 po q days 2-5 ZITHROMAX 250 MG TAB 9551335 AZITHROMYCIN Inactive AUGMENTIN 875-125 MG TAB 1 po BID x 10 days AUGMENTIN 875- 125 MG TAB 016917 AMOXICILLIN-POT CLAVULANATE Inactive ZITHROMAX Z-REYNA 250 MG TABS 2 today, then 1 daily for 4 days 201 08/07/20 ZITHROMAX Z-REYNA 250 MG TABS 6413807 AZITHROMYCIN Inac tive ZITHROMAX 250 MG TAB 2 po today, then 1 po q days 2-5 ZITHROMAX 250 MG TAB 0207313 AZITHROMYCIN Inactive ZITHROMAX Z-REYNA 250 MG TABS 2 today, then 1 daily for 4 days 201 08/30/03 ZITHROMAX Z-REYNA 250 MG TABS 1706568 AZITHROMYCIN Inac tive CEFDINIR 300 MG CAPS 1 po BID x 10 days C EFDINIR 300 MG CAPS 724434 CEFDINIR Inactive ZITHROMAX 250 MG TAB 2 po today, then 1 po q days 2-5 ZITHROMAX 250 MG TAB 7886906 AZITHROMYCIN Inactive LEVAQUIN 500 MG TAB 1 tablet by mouth daily LEVAQUIN 500 MG TAB 700180 LEVOFLOXACIN Inactive SINGULAIR 10 MG TABS 1 po qday for allergies 2 SINGULAIR 10 MG TABS 20010504 MONTELUKAST SODIUM Inactive AMOXICILLIN 500 MG CAPS 2 po BID x 10 days AMOXICILLIN 500 MG CAPS 048210 AMOXICILLIN Inactive PREDNISONE 20 MG TAB 2 tabs daily for 3 days, 1 t ab daily for 3 days, 1/2 tab daily for 2 days PREDNISONE 20 MG TAB 556144 PREDNISON E Inactive ZITHROMAX Z-REYNA 250 MG TABS 2 today, then 1 daily for 4 days 201 09/29/14 ZITHROMAX Z-REYNA 250 MG TABS 9220799 AZITHROMYCIN Inac tive Vital Signs Date Name [...] Measured Encounters Code Encounter Date Provider Facility CPT-09356 Level 3 Est. Patient 13:23:51 CDT Diya cobian [facility] CPT-21478 Level 3 Est. Patient 14:22:19 UNLOAD ASSOCIATE Diya cobian [facility] CPT-24220 Level 3 Est. Patient 10:11:46 CDT Carlton rich MD [facility] CPT-72879 Level 3 Est. Patient 17:29:43 CDT Italo [facility] CPT-98957 Level 3 Est. Patient 11:58:06 CDT Italo [facility] CPT-20552 Level 4 Est. Patient 14:36:51 CDT Carlton rich MD [facility] CPT-98871 Level 3 Est. Patient 18:16:00 UNLOAD ASSOCIATE Blaine HERNANDEZ [facility] CPT-13046 Level 3 Est. Patient 09:45:49 UNLOAD ASSOCIATE Carlton rich MD [facility] CPT-87360 Level 3 Est. Patient 13:19:20 CDT Carlton rich [facility] CPT-12926 Level 3 Est. Patient 13:06:43 CDT Ridge tam DO [facility] CPT-05514 Level 3 Est. Patient 10:03:07 CDT Perez Mora MD [facility]-10339 Level 3 Est. Patient 19:50:35 UNLOAD ASSOCIATE Carlton rich MD [facility]-79570 Level 4 Est. Patient 18:05:01 UNLOAD ASSOCIATE Carlton rich MD [facility]-97433 Level 3 Est. Patient 10:45:55 UNLOAD ASSOCIATE Hugo Restrepo MD [facility]-02713 Level 3 Est. Patient 14:12:49 CDT Griffin HERNANDEZ [facility]-97272 Level 3 Est. Patient 17:37:24 CDT Carlton rich MD [facility]-24643 Level 3 Est. Patient 16:51:54 CDT Carlton rich MD [facility]-64609 Level 3 Est. Patient 12:18:11 CDT Hugo Restrepo MD [facility]-36276 Level 3 Est. Patient 11:30:25 CDT Marcy crisostomo MD PhD [facility]-12978 Level 3 Est. Patient 12:00:47 UNLOAD ASSOCIATE Carlton rich MD [facility]-41723 Level 3 Est. Patient 16:31:06 UNLOAD ASSOCIATE Carlton rich MD [facility]-14688 Level 3 Est. Patient 16:23:24 UNLOAD ASSOCIATE Ridge tam DO [facility]-95777 Level 3 Est. Patient 12:34:12 CDT Carlton rich MD [facility] CPT-63897 Level 2 Est. Patient 15:43:33 CDT Robi armstrong MD [facility] CPT-54972 Level 4 Est. Patient 14:04:44 CDT Carlton rich MD [facility] CPT-72340 Level 3 Est. Patient 05:47:59 CDT Ridge tam DO [facility] CPT-89921 Level 3 Est. Patient 13:12:53 UNLOAD ASSOCIATE Carlton rich MD [facility] CPT-61611 Level 3 Est. Patient 14:26:53 CDT Hugo Restrepo MD [facility] Procedures Code Procedure Name Date Entry Date Standard Desc ription CPT-J0696 Rocephin 1gm Inj Solr 14:32:13 CDT CPT-J1020 Depo Medrol 60 mg (Methyl Prednisolone A cetate) 14:32:13 CDT CPT-J1100 Decadron 6mg (Dexamethasone) 14:32:13 CDT 2 CPT-02805 Hip bilat min 2V w AP pelvis 13:16:20 CDT 2 CPT-38538 Pelvis only 13:07:33 CDT CPT-98356 Spec Collection and Handling Fee 11:25:12 C DT CPT-15200 Fluzone Quadrivalent Intramuscular Suspe nsion 0.5 ML 14:31:55 CDT CPT-63017 Abx/Therapy Injection 13:28:47 UNLOAD ASSOCIATE CPT-J2930 Solu Medrol 125 mg (Methyl Prednisolone Sodium Succinate) 12:00:47 UNLOAD ASSOCIATE CPT-68263 Venipuncture Draw Fee 11:33:31 CDT CPT-09648 EKG Trac and Interp 11:21:09 CDT CPT-94548 Chest 2V Frontal and Lat 11:21:09 CDT 12/15 CPT-40868 Venipuncture Draw Fee 08:02:34 CDT CPT-75851 Chest 2V Frontal and Lat 05:47:59 CDT 06/05
--- OUTSIDE RECORDS SUMMARY | 2019-10-08 08:29 | XMS REPORT | Clinical Summary ---
Author Author Caitlin, Juliana Martinez Organization [facility] Address Unknown Phone Unavailable Allergies, Adverse Reactions, Alerts Allergy Name Reaction Description Start Date Severity Status Pr ovider No Known Allergies [facility] Conditions or Problems Problem Name [...] MD PhD Painful respiration PNEUMONIA 486 Resolved Mracy De La Rosa MD PhD Pneumonia, organism [...] MD PhD SINUSITIS, ACUTE ICD-461.9 Inactive Hugo domingeuz MD Medication List Medication Instructions Start Date Stop Date Generic Name NDC Status Provider Patient Instruction XANAX 0.5 MG TABS one tablet by mouth daily prn anxiety ALPRAZOLAM [id number] Active Carlton Hu MD Active CYMBALTA 30 MG CPEP 1 cap by mouth daily for depression DULOXETINE HCL 27041182505 Active Carlton Hu MD Active CEFDINIR 300 MG CAPS 1 po BID x 10 days CEFDINI R 34359635919 Active Carlton Hu MD Active ZOCOR 40 MG TAB 1 tab by mouth daily SIMVASTATI N 84135679428 No Longer Active Carlton Hu MD Active CYCLOBENZAPRINE HCL 10 MG TABS 1 tablet by mouth BID prn had cherelle n CYCLOBENZAPRINE HCL 24755928714 No Longer Active Carlton Hu MD Active LEVOFLOXACIN 500 MG ORAL TABS 1 tab PO daily x 10 days LEVOFLOXACIN 20169825879 No Longer Active Carlton Hu MD Acti ve PREDNISONE 20 MG ORAL TABS 3 tab PO qd x 2d, 2 tab PO qd x 2d, 1 tab PO qd x 2d, 1/2 tab PO qd x 2d PREDNISONE 80417279092 No Longer Active Carlton Hu MD Active TUSSIONEX PENNKINETIC ER 10-8 MG/5ML ORAL LQCR 5 mL PO q 12 hrs PRN cough HYDROCOD POLST-CHLORPHEN POLST 09131285632 Active Carlton Hu MD Active FLUTICASONE PROPIONATE 50 MCG/ACT SUSP 1 to 2 sprays each no stril daily FLUTICASONE PROPIONATE 43796706226 No Longer Active T jaz HERNANDEZ Active CHERATUSSIN AC 100-10 MG/5ML SYRP 1 tsp by mouth every 4 hours as needed for cough GUAIFENESIN-CODEINE 74543813869 No Longer Activ e Blaine HERNANDEZ Active PROMETHAZINE-CODEINE 6.25-10 MG/5ML SYRP 1 tsp by mout h every 6 hours if needed for cough PROMETHAZINE-CODEINE 08340909116 No Long er Active Blaine HERNANDEZ Active CHERATUSSIN AC 100-10 MG/5ML SYRP 1 tsp by mouth every 4 hours as needed for cough GUAIFENESIN-CODEINE 93410476256 No Longer Activ Jorge Luis HERNANDEZ Active ZITHROMAX Z-REYNA 250 MG TABS 2 today, then 1 daily for 4 days 201 08/30/03 AZITHROMYCIN 52847536389 No Longer Active Columba Raida Act nael ZITHROMAX 250 MG TAB 2 po today, then 1 po q days 2-5 AZITHROMYCIN 67930913247 No Longer Active Carlton Hu MD Acti ve ZITHROMAX Z-REYNA 250 MG TABS 2 today, then 1 daily for 4 days 201 08/07/20 AZITHROMYCIN 17607675548 No Longer Active Columba Raida Act nael AUGMENTIN 875-125 MG TAB 1 po BID x 10 days AMOXICILLIN- POT CLAVULANATE 00031452735 No Longer Active Diya De Guzman APRN Active ZITHROMAX 250 MG TAB 2 po today, then 1 po q days 2-5 AZITHROMYCIN 25354746751 No Longer Active Carlton Hu MD Acti ve TRAMADOL HCL 50 MG TABS 1 po tid with ES Tylenol TRAMADOL HCL 76619566104 Active Carlton uH MD Active PREMARIN 0.625 MG TABS TAKE 1 TAB BY MOUTH DAILY 07/25 ESTROGENS CONJUGATED 41209577457 No Longer Active Ridge Bess DO Active CYMBALTA 30 MG CPEP 1 cap by mouth daily DULOXE SNEHA HCL 26320936439 No Longer Active Ridge Bess DO Active AMOXICILLIN 500 MG CAP 1 tab by mouth 3 times daily x 10 days 20 14/04/28 AMOXICILLIN 05716628004 No Longer Active Carlton Hu MD Active AMOXICILLIN 500 MG CAP 1 tab by mouth 3 times daily x 10 days 20 13/03/08 AMOXICILLIN 62572577438 No Longer Active Carlton Hu MD Active PROMETHAZINE-CODEINE 6.25-10 MG/5ML SYRP 1 tsp by mouth ever y 8 hours prn cough PROMETHAZINE-CODEINE 57956435158 No Longer Active Robert id M Puryear MD Active MEDROL (REYNA) 4 MG TABS 6 pills x 1 day, then 5 pill s x 1 day then 4 pills x 1 day, then 3 pills x 1 day, then 2 pills x 1 day, then 1 pill x 1 day, then stop METHYLPREDNISOLONE 32124295633 No Longer Active Parris Mora MD Active AZITHROMYCIN 250 MG TABS 2 po qd x 1 day, then 1 po qd x 4 days AZITHROMYCIN 13522946902 No Longer Active Perez Mora MD Active SYMBICORT 160-4.5 MCG/ACT AERO 2 puffs bid with rinse after 2011 BUDESONIDE-FORMOTEROL FUMARATE 71962441508 No Longer Active Perez Mora MD Active LYRICA 75 MG CAPS TAKE 1 CAPSULE BY MOUTH TWICE DAILY 2013 PREGABALIN 64597896746 No Longer Active Carlton Hu MD Active LYRICA 100 MG CAPS Take 1 tab po BID for fibromyalgia PREGABALIN 31801104186 Active Carlton Hu MD Active TOPAMAX 25 MG TABS 1 qHS x 1 week, then 1 BID x 1 week, then 1 qAM and 2 qHS x 1 week, then 2 BID (migraine prevention) TOPIRAMAT E 29870865334 No Longer Active Jerica FUENTES Active TOPAMAX 50 MG TABS take 1 tab po BID for migraines. 12/07/10 TOPIRAMATE 60311826113 No Longer Active Jerica Osei RMA Ac tive TOPAMAX 100 MG TABS Take 1 tablet po bid TOPIRAMATE 4999 3455574 Active Carlton Hu MD Active TRIAMCINOLONE ACETONIDE 0.1 % CREA apply three times daily prn r beatrice TRIAMCINOLONE ACETONIDE 62020729424 No Longer Active Carlton Hu MD Active PAXIL 40 MG TAB take 1 tab po qday for depression PAROXETINE HCL 33643977238 Active Elise Whitmore HOTEL YARDPERSON Active CHERATUSSIN AC 100-10 MG/5ML SYRP 5ml po q6hr PRN Cough GUAIFENESIN-CODEINE 05532941719 No Longer Active Carlton Hu MD Active MEDROL (REYNA) 4 MG TABS 6 tabs on day 1, 5 tabs on d ay 2, 4 tabs on day 3, 3 tabs on day 4, 2 tabs on day 5, 1 tab on day 6 METHYLPREDNISOLONE 70592169098 No Longer Active Perez Mora MD Active AZITHROMYCIN 250 MG TABS 2 po qd x 1 day, then 1 po qd x 4 days AZITHROMYCIN 76507851287 No Longer Active Perez Mora MD Active PROPRANOLOL HCL 60 MG TABS 1 PO Q D PROPRANOL OL HCL 96538312818 No Longer Active Perez Mora MD Active CHERATUSSIN AC 100-10 MG/5ML SYRP take one tsp po Q 6hours prn c ough GUAIFENESIN-CODEINE 37776894495 No Longer Active Perez Means Active AUGMENTIN 875-125 MG TAB 1 tab by mouth twice daily with food 20 12/03/31 AMOXICILLIN-POT CLAVULANATE 21564573011 No Longer Active Chanel Mora MD Active CHERATUSSIN AC 100-10 MG/5ML SYRP 1 tsp by mouth every 4 hours as needed for cough GUAIFENESIN-CODEINE 90867110632 No Longer Activ e Hugo Restrepo MD Active ACETAMINOPHEN-CODEINE #3 300-30 MG TABS 1 PO Q 4-6 HRS PRN PAIN ACETAMINOPHEN-CODEINE 82110375199 No Longer Active Hugo Restrepo MD Active LEVAQUIN 500 MG TABS take one po QD LEVOFLOXACI N 18571645862 No Longer Active Griffin HERNANDEZ Active PREDNISONE 20 MG TAB Take 3 tabs daily for 3 days , 2 tabs daily for 3 days, 1 tab daily for 3 days, 1/2 tab daily for 3 days P REDNISONE 69894287495 No Longer Active Carlton Hu MD Active AVELOX 400 MG TABS 1 tab by mouth daily MOXIFLO XACIN HCL 71841846749 No Longer Active Carlton Hu MD Active CHERATUSSIN AC 100-10 MG/5ML SYRP 1 tsp by mouth every 4 hours as needed for cough GUAIFENESIN-CODEINE 45231992345 No Longer Activ e Hugo Restrepo MD Active AVELOX 400 MG TABS 1 tab by mouth daily MOXIFLO XACIN HCL 74342605160 No Longer Active Marcy De La Rosa MD PhD Active TERBINAFINE HCL 250 MG TABS 1 qDay TERBINAF INE HCL 59436328680 No Longer Active Marcy De La Rosa MD PhD Active CHERATUSSIN AC 100-10 MG/5ML SYRP 1 tsp by mouth every 4 hours as needed for cough GUAIFENESIN-CODEINE 02077067118 No Longer Activ e Marcy De La Rosa MD PhD Active AVELOX 400 MG TABS 1 tab by mouth daily MOXIFLO XACIN HCL 33408590163 No Longer Active Marcy De La Rosa MD PhD Active HYDROCODONE-ACETAMINOPHEN 5-325 MG TABS 1 po q 6hr PRN cough 201 05/09/16 HYDROCODONE-ACETAMINOPHEN 08020563743 No Longer Active Marcy De La Rosa MD PhD Active PREDNISONE 20 MG TAB 2 tabs daily for 3 days, 1 t ab daily for 3 days, 1/2 tab daily for 2 days PREDNISONE 86202811946 No Longer Active Carlton Hu MD Active CEFDINIR 300 MG CAPS by mouth twice a day CEFDI ODILIA 59611498945 No Longer Active Carlton Hu MD Active HYDROCHLOROTHIAZIDE 25 MG TABS 1 TAB PO DAILY H YDROCHLOROTHIAZIDE 32570866518 Active Carlton Hu MD Active ACETAMINOPHEN-CODEINE #3 300-30 MG TABS 1 tablet po q 4-6hrs prn pain ACETAMINOPHEN-CODEINE 08503079143 No Longer Active Ridge Bess DO Active ZITHROMAX 250 MG TAB 2 po today, then 1 po q days 2-5 AZITHROMYCIN 76880897242 No Longer Active Carlton Hu MD Acti ve CHERATUSSIN AC 100-10 MG/5ML SYRP take 1 tsp po q4-6 hours prn c ough GUAIFENESIN-CODEINE 55697948324 No Longer Active Carlton Hu MD Active ACETAMINOPHEN-CODEINE #3 300-30 MG TABS 1 PO Q 4-6 HR PRN PAIN 2 ACETAMINOPHEN-CODEINE 22251610644 No Longer Active Carlton rich MD Active LORTAB 7.5-500 MG/15ML ELIX 7.5 ml po q 4 hour prn cough HYDROCODONE-ACETAMINOPHEN 75430462619 No Longer Active Carlton Hu MD Active PREDNISONE 20 MG TAB 1 po bid 3 days, then 1 po q day 3 days 201 05/03/07 PREDNISONE 66802758493 No Longer Active Carlton Hu MD Active ELMIRON 100 MG CAPS 2 tablets in the am and 1 tablet at hs PENTOSAN POLYSULFATE SODIUM 29109952012 Active Carlton Hu MD Ac tive CEFDINIR 300 MG CAPS by mouth twice a day CEFDI ODILIA 85518603844 No Longer Active Carlton Hu MD Active CEFDINIR 300 MG CAPS by mouth twice a day CEFDI ODILIA 56402455123 No Longer Active Carlton Hu MD Active CEFDINIR 300 MG CAPS by mouth twice a day CEFDI ODILIA 00553268874 No Longer Active Carlton Hu MD Active TESSALON PERLES 100 MG CAP 1 tablet by mouth 3 times daily a s needed for cough BENZONATATE 71555914540 No Longer Active Carlton bustamante MD Active CEFDINIR 300 MG CAPS by mouth twice a day CEFDI ODILIA 73092631380 No Longer Active Carlton Hu MD Active ZITHROMAX Z-REYNA 250 MG TABS 2 today, then 1 daily for 4 days 201 04/09/17 AZITHROMYCIN 77928640360 No Longer Active Hugo Restrepo MD Active TESSALON PERLES 100 MG CAP 1 tablet by mouth 3 times daily a s needed for cough TESSALON PERLES 100 MG CAP 346225 BENZONATATE I nactive PREDNISONE 20 MG TAB 1 po bid 3 days, then 1 po q day 3 days 201 05/03/07 PREDNISONE 20 MG TAB 994721 PREDNISONE Inactive LORTAB 7.5-500 MG/15ML ELIX 7.5 ml po q 4 hour prn cough LORTAB 7.5-500 MG/15ML ELIX HYDROCODONE-ACETAMINOPHEN Inacti ve ACETAMINOPHEN-CODEINE #3 300-30 MG TABS 1 PO Q 4-6 HR PRN PAIN 2 ACETAMINOPHEN-CODEINE #3 300-30 MG TABS 818428 ACETAMIN OPHEN-CODEINE Inactive CHERATUSSIN AC 100-10 MG/5ML SYRP take 1 tsp po q4-6 hours prn c ough CHERATUSSIN AC 100-10 MG/5ML SYRP 684877 GUAIFENESIN-CO DEINE Inactive ACETAMINOPHEN-CODEINE #3 300-30 MG TABS 1 tablet po q 4-6hrs prn pain ACETAMINOPHEN-CODEINE #3 300-30 MG TABS 321210 ACETAMIN OPHEN-CODEINE Inactive HYDROCODONE-ACETAMINOPHEN 5-325 MG TABS 1 po q 6hr PRN cough 201 05/09/16 HYDROCODONE-ACETAMINOPHEN 5-325 MG TABS 303736 HYDROCODONE-ACETAMINOPHEN Inactive AVELOX 400 MG TABS 1 tab by mouth daily A VELOX 400 MG TABS 245328 MOXIFLOXACIN HCL Inactive CHERATUSSIN AC 100-10 MG/5ML SYRP 1 tsp by mouth every 4 hours as needed for cough CHERATUSSIN AC 100-10 MG/5ML SYRP 278089 GUAIFENESIN-CODEINE Inactive TERBINAFINE HCL 250 MG TABS 1 qDay TERBINAFINE HCL 250 MG TABS 275561 TERBINAFINE HCL Inactive CHERATUSSIN AC 100-10 MG/5ML SYRP 1 tsp by mouth every 4 hours as needed for cough CHERATUSSIN AC 100-10 MG/5ML SYRP 518304 GUAIFENESIN-CODEINE Inactive ACETAMINOPHEN-CODEINE #3 300-30 MG TABS 1 PO Q 4-6 HRS PRN PAIN ACETAMINOPHEN-CODEINE #3 300-30 MG TABS 055061 ACETAMINOPHEN-CODEIN E Inactive CHERATUSSIN AC 100-10 MG/5ML SYRP 1 tsp by mouth every 4 hours as needed for cough CHERATUSSIN AC 100-10 MG/5ML SYRP 191651 GUAIFENESIN-CODEINE Inactive AUGMENTIN 875-125 MG TAB 1 tab by mouth twice daily with food 20 12/03/31 AUGMENTIN 875-125 MG TAB 013651 AMOXICILLIN-POT CLAVULA EFE Inactive CHERATUSSIN AC 100-10 MG/5ML SYRP take one tsp po Q 6hours prn c ough CHERATUSSIN AC 100-10 MG/5ML SYRP 381441 GUAIFENESIN-CO DEINE Inactive PROPRANOLOL HCL 60 MG TABS 1 PO Q D P ROPRANOLOL HCL 60 MG TABS 354521 PROPRANOLOL HCL Inactive TOPAMAX 50 MG TABS take 1 tab po BID for migraines. 12/07/10 TOPAMAX 50 MG TABS 301141 TOPIRAMATE Inactive TOPAMAX 25 MG TABS 1 qHS x 1 week, then 1 BID x 1 week, then 1 qAM and 2 qHS x 1 week, then 2 BID (migraine prevention) TOPAMAX 2 5 MG TABS 480225 TOPIRAMATE Inactive LYRICA 75 MG CAPS TAKE 1 CAPSULE BY MOUTH TWICE DAILY LYRICA 75 MG CAPS PREGABALIN Inactive SYMBICORT 160-4.5 MCG/ACT AERO 2 puffs bid with rinse after 2011 SYMBICORT 160-4.5 MCG/ACT AERO BUDESONIDE-FORMOT SÁNCHEZ FUMARATE Inactive PROMETHAZINE-CODEINE 6.25-10 MG/5ML SYRP 1 tsp by mouth ever y 8 hours prn cough PROMETHAZINE-CODEINE 6.25-10 MG/5ML SYRP 978190 PROMETHAZINE-CODEINE Inactive CYMBALTA 30 MG CPEP 1 cap by mouth daily CYMBALTA 30 MG CPEP 364389 DULOXETINE HCL Inactive PREMARIN 0.625 MG TABS TAKE 1 TAB BY MOUTH DAILY 07/25 PREMARIN 0.625 MG TABS ESTROGENS CONJUGATED Inactive CHERATUSSIN AC 100-10 MG/5ML SYRP 1 tsp by mouth every 4 hours as needed for cough CHERATUSSIN AC 100-10 MG/5ML SYRP 651655 GUAIFENESIN-CODEINE Inactive PROMETHAZINE-CODEINE 6.25-10 MG/5ML SYRP 1 tsp by mout h every 6 hours if needed for cough PROMETHAZINE-CODEINE 6.25-10 MG/5ML SYRP 344979 PROMETHAZINE-CODEINE Inactive CHERATUSSIN AC 100-10 MG/5ML SYRP 1 tsp by mouth every 4 hours as needed for cough CHERATUSSIN AC 100-10 MG/5ML SYRP 741153 GUAIFENESIN-CODEINE Inactive FLUTICASONE PROPIONATE 50 MCG/ACT SUSP 1 to 2 sprays each no stril daily FLUTICASONE PROPIONATE 50 MCG/ACT SUSP 017963 FLUTICASONE PROPIONATE Inactive PREDNISONE 20 MG ORAL TABS 3 tab PO qd x 2d, 2 tab PO qd x 2d, 1 tab PO qd x 2d, 1/2 tab PO qd x 2d PREDNISONE 20 MG ORAL TABS 015853 PREDNISONE Inactive LEVOFLOXACIN 500 MG ORAL TABS 1 tab PO daily x 10 days LEVOFLOXACIN 500 MG ORAL TABS 691834 LEVOFLOXACIN Inactive CYCLOBENZAPRINE HCL 10 MG TABS 1 tablet by mouth BID prn had cherelle n CYCLOBENZAPRINE HCL 10 MG TABS 192418 CYCLOBENZAPRINE H CL Inactive ZOCOR 40 MG TAB 1 tab by mouth daily ZOCOR 40 M G TAB 780687 SIMVASTATIN Inactive ZITHROMAX Z-REYNA 250 MG TABS 2 today, then 1 daily for 4 days 201 04/09/17 ZITHROMAX Z-REYNA 250 MG TABS 7685632 AZITHROMYCIN Inac tive CEFDINIR 300 MG CAPS by mouth twice a day CEFDINIR 300 MG CAPS 20020704 CEFDINIR Inactive CEFDINIR 300 MG CAPS by mouth twice a day CEFDINIR 300 MG CAPS 20020704 CEFDINIR Inactive CEFDINIR 300 MG CAPS by mouth twice a day CEFDINIR 300 MG CAPS 212346 CEFDINIR Inactive CEFDINIR 300 MG CAPS by mouth twice a day CEFDINIR 300 MG CAPS 159975 CEFDINIR Inactive ZITHROMAX 250 MG TAB 2 po today, then 1 po q days 2-5 ZITHROMAX 250 MG TAB 6593184 AZITHROMYCIN Inactive CEFDINIR 300 MG CAPS by mouth twice a day CEFDINIR 300 MG CAPS 20020704 CEFDINIR Inactive PREDNISONE 20 MG TAB 2 tabs daily for 3 days, 1 t ab daily for 3 days, 1/2 tab daily for 2 days PREDNISONE 20 MG TAB 701750 PREDNISON E Inactive AVELOX 400 MG TABS 1 tab by mouth daily A VELOX 400 MG TABS 778483 MOXIFLOXACIN HCL Inactive AVELOX 400 MG TABS 1 tab by mouth daily A VELOX 400 MG TABS 739718 MOXIFLOXACIN HCL Inactive PREDNISONE 20 MG TAB Take 3 tabs daily for 3 days , 2 tabs daily for 3 days, 1 tab daily for 3 days, 1/2 tab daily for 3 days PREDNISONE 20 MG TAB 988548 PREDNISONE Inactive LEVAQUIN 500 MG TABS take one po QD LEVAQUIN 50 0 MG TABS 361408 LEVOFLOXACIN Inactive AZITHROMYCIN 250 MG TABS 2 po qd x 1 day, then 1 po qd x 4 days AZITHROMYCIN 250 MG TABS 1097855 AZITHROMYCIN Inactiv e MEDROL (REYNA) 4 MG TABS 6 tabs on day 1, 5 tabs on d ay 2, 4 tabs on day 3, 3 tabs on day 4, 2 tabs on day 5, 1 tab on day 6 MEDROL (REYNA) 4 MG TABS METHYLPREDNISOLONE Inactive CHERATUSSIN AC 100-10 MG/5ML SYRP 5ml po q6hr PRN Cough CHERATUSSIN AC 100-10 MG/5ML SYRP 233482 GUAIFENESIN-CODEINE Inacti ve TRIAMCINOLONE ACETONIDE 0.1 % CREA apply three times daily prn r beatrice TRIAMCINOLONE ACETONIDE 0.1 % CREA 4339095 TRIAMCINOLONE ACETONIDE Inactive AZITHROMYCIN 250 MG TABS 2 po qd x 1 day, then 1 po qd x 4 days AZITHROMYCIN 250 MG TABS 2133321 AZITHROMYCIN Inactiv e MEDROL (REYNA) 4 MG [...] days 20 13/03/08 AMOXICILLIN 500 MG CAP 514990 AMOXICILLIN Inactive AMOXICILLIN 500 MG CAP 1 tab by mouth 3 times daily x 10 days 20 14/04/28 AMOXICILLIN 500 MG CAP 728785 AMOXICILLIN Inactive ZITHROMAX 250 MG TAB 2 po today, then 1 po q days 2-5 ZITHROMAX 250 MG TAB 7572591 AZITHROMYCIN Inactive AUGMENTIN 875-125 MG TAB 1 po BID x 10 days AUGMENTIN 875- 125 MG TAB 469800 AMOXICILLIN-POT CLAVULANATE Inactive ZITHROMAX Z-REYNA 250 MG TABS 2 today, then 1 daily for 4 days 201 08/07/20 ZITHROMAX Z-REYNA 250 MG TABS 9484009 AZITHROMYCIN Inac tive ZITHROMAX 250 MG TAB 2 po today, then 1 po q days 2-5 ZITHROMAX 250 MG TAB 8243842 AZITHROMYCIN Inactive ZITHROMAX Z-REYNA 250 MG TABS 2 today, then 1 daily for 4 days 201 08/30/03 ZITHROMAX Z-REYNA 250 MG TABS 9408198 AZITHROMYCIN Inac tive Vital Signs Date Name [...] Measured Encounters Code Encounter Date Provider Facility CPT-12710 Level 4 Est. Patient 14:36:51 CDT Carlton rich MD [facility] CPT-11998 Level 3 Est. Patient 18:16:[address] [employer]INE[employer] Blaine HERNANDEZ [facility] CPT-61127 Level 3 Est. Patient 09:45:[address] [employer]INE[employer] Carlton rich MD [facility] CPT-00100 Level 3 Est. Patient 13:19:20 CDT Carlton rich MD [facility] CPT-70022 Level 3 Est. Patient 13:06:43 CDT Ridge tam DO [facility] CPT-46828 Level 3 Est. Patient 10:03:07 CDT Perez Mora MD [facility] CPT-48448 Level 3 Est. Patient 19:50:[address] [employer]INE[employer] Carlton rich MD [facility] CPT-66750 Level 4 Est. Patient 18:05:[address] [employer]AFET[employer] ENGINEER Carlton rich MD [facility]-08189 Level 3 Est. Patient 10:45:[address] SAFETY ENGINEER Hugo Restrepo MD [facility]-73418 Level 3 Est. Patient 14:12:49 CDT Griffin HERNANDEZ [facility]-72115 Level 3 Est. Patient 17:37:24 CDT Carlton rich MD [facility]-05008 Level 3 Est. Patient 16:51:54 CDT Carlton rich MD [facility]-37180 Level 3 Est. Patient 12:18:11 CDT Hugo Restrepo MD [facility]-33028 Level 3 Est. Patient 11:30:25 CDT Marcy crisostomo MD PhD [facility]-77922 Level 3 Est. Patient 12:00:[address] [employer]AFET[employer] ENGINEER Carlton rich MD [facility]-87001 Level 3 Est. Patient 16:31:[address] SAFETY ENGINEER Carlton rich MD [facility]-81407 Level 3 Est. Patient 16:23:[address] SAFET[employer] ENGINEER Ridge tam DO [facility]-48446 Level 3 Est. Patient 12:34:12 CDT Carlton rich MD [facility] CPT-95466 Level 2 Est. Patient 15:43:33 CDT Robi armstrong MD [facility]-19744 Level 4 Est. Patient 14:04:44 CDT Carlton rich MD [facility]-06119 Level 3 Est. Patient 05:47:59 CDT Ridge tam [facility]-19028 Level 3 Est. Patient 13:12:[address] SAFET[employer] ENGINEER Carlton rich MD [facility] CPT-98631 Level 3 Est. Patient 14:26:53 CDT Hugo Restrepo MD [facility] Procedures Code Procedure Name Date Entry Date Standard Desc ription CPT-47604 Hip bilat min 2V w AP pelvis 13:16:20 CDT 2 CPT-92502 Pelvis only 13:07:33 CDT CPT-03333 Spec Collection and Handling Fee 11:25:12 C DT CPT-00248 Fluzone Quadrivalent Intramuscular Suspe nsion 0.5 ML 14:31:55 CDT CPT-70311 Abx/Therapy Injection 13:28:[address] [employer] ENGINE[employer] CPT-J2930 Solu Medrol 125 mg (Methyl Prednisolone Sodium Succinate) 12:00:[address] SAF[employer] ENGINEER CPT-77009 Venipuncture Draw Fee 11:33:31 CDT CPT-02562 EKG Trac and Interp 11:21:09 CDT CPT-97015 Chest 2V Frontal and Lat 11:21:09 CDT 12/15 CPT-81140 Venipuncture Draw Fee 08:02:34 CDT CPT-47560 Chest 2V Frontal and Lat 05:47:59 CDT 06/05
--- OUTSIDE RECORDS SUMMARY | 2019-10-08 08:29 | XMS REPORT | Clinical Summary ---
Author Author Caitlin, Juliana Martinez Organization [facility] Address Unknown Phone Unavailable Allergies, Adverse Reactions, [...] sites Sinusitis 473.9 Active Diya De Guzman BILLET SHEARER Unspecified sinusitis (chronic) Bronchitis-Acute 466.0 Active Carlton Hu MD Acute bronchitis URI - acute 465.9 Active Elise Whitmore BILLET SHEARER Acute upper respiratory infections of unspecified site [...] 1 tablet by mouth daily LEV OFLOXACIN [id number] No Longer Active Carlton Hu MD Active FLUTICASONE PROPIONATE 50 MCG/ACT SUSP 2 sprays each n ostril daily for 2 weeks, then 1 spray each nostril daily. FLUTICASONE PRO PIONATE 94411257162 Active Elise Whitmore APRN Active ZITHROMAX 250 MG TAB 2 po today, then 1 po q days 2-5 AZITHROMYCIN 18235565375 No Longer Active Elise Whitmore APRN Acti ve XANAX 0.5 MG TABS one tablet by mouth daily prn anxiety ALPRAZOLAM 31884979275 Active Carlton Hu MD Active CYMBALTA 30 MG CPEP 1 cap by mouth daily for depression DULOXETINE HCL 24309385059 Active Carlton Hu MD Active CEFDINIR 300 MG CAPS 1 po BID x 10 days CEFDINI R 59384823854 No Longer Active Carlton Hu MD Active ZOCOR 40 MG TAB 1 tab by mouth daily SIMVASTATI N 98088939561 No Longer Active Carlton Hu MD Active CYCLOBENZAPRINE HCL 10 MG TABS 1 tablet by mouth BID prn had cherelle n CYCLOBENZAPRINE HCL 10361361193 No Longer Active Carlton Hu MD Active LEVOFLOXACIN 500 MG ORAL TABS 1 tab PO daily x 10 days LEVOFLOXACIN 25295929037 No Longer Active Carlton Hu MD Acti ve PREDNISONE 20 MG ORAL TABS 3 tab PO qd x 2d, 2 tab PO qd x 2d, 1 tab PO qd x 2d, 1/2 tab PO qd x 2d PREDNISONE 38614646599 No Longer Active Carlton Hu MD Active TUSSIONEX PENNKINETIC ER 10-8 MG/5ML ORAL LQCR 5 mL PO q 12 hrs PRN cough HYDROCOD POLST-CHLORPHEN POLST 18194855217 Active Zo meeks Active FLUTICASONE PROPIONATE 50 MCG/ACT SUSP 1 to 2 sprays each no stril daily FLUTICASONE PROPIONATE 22541744642 No Longer Active T jaz HERNANDEZ Active CHERATUSSIN AC 100-10 MG/5ML SYRP 1 tsp by mouth every 4 hours as needed for cough GUAIFENESIN-CODEINE 64042074612 No Longer Activ e Blaine HERNANDEZ Active PROMETHAZINE-CODEINE 6.25-10 MG/5ML SYRP 1 tsp by mout h every 6 hours if needed for cough PROMETHAZINE-CODEINE 77026419120 No Long er Active Blaine HERNANDEZ Active CHERATUSSIN AC 100-10 MG/5ML SYRP 1 tsp by mouth every 4 hours as needed for cough GUAIFENESIN-CODEINE 46873348637 No Longer Activ e Blaine HERNANDEZ Active ZITHROMAX Z-REYNA 250 MG TABS 2 today, then 1 daily for 4 days 201 08/30/03 AZITHROMYCIN 51318116372 No Longer Active Columba Raida Act nael ZITHROMAX 250 MG TAB 2 po today, then 1 po q days 2-5 AZITHROMYCIN 90802220658 No Longer Active Carlton Hu MD Acti ve ZITHROMAX Z-REYNA 250 MG TABS 2 today, then 1 daily for 4 days 201 08/07/20 AZITHROMYCIN 52096283790 No Longer Active Columba Raida Act nael AUGMENTIN 875-125 MG TAB 1 po BID x 10 days AMOXICILLIN- POT CLAVULANATE 04512196918 No Longer Active Diya De Guzman APRN Active ZITHROMAX 250 MG TAB 2 po today, then 1 po q days 2-5 AZITHROMYCIN 38155928934 No Longer Active Carlton Hu MD Acti ve TRAMADOL HCL 50 MG TABS 1 po tid with ES Tylenol TRAMADOL HCL 99564881303 Active Carlton Hu MD Active PREMARIN 0.625 MG TABS TAKE 1 TAB BY MOUTH DAILY 07/25 ESTROGENS CONJUGATED 76404046125 No Longer Active Ridge Bess DO Active CYMBALTA 30 MG CPEP 1 cap by mouth daily DULOXE SNEHA HCL 87148994870 No Longer Active Ridge Bess DO Active AMOXICILLIN 500 MG CAP 1 tab by mouth 3 times daily x 10 days 20 14/04/28 AMOXICILLIN 89144848061 No Longer Active Carlton Hu MD Active AMOXICILLIN 500 MG CAP 1 tab by mouth 3 times daily x 10 days 20 13/03/08 AMOXICILLIN 74657323200 No Longer Active Carlton Hu MD Active PROMETHAZINE-CODEINE 6.25-10 MG/5ML SYRP 1 tsp by mouth ever y 8 hours prn cough PROMETHAZINE-CODEINE 27801832066 No Longer Active Robert Hu MD Active MEDROL (REYNA) 4 MG TABS 6 pills x 1 day, then 5 pill s x 1 day then 4 pills x 1 day, then 3 pills x 1 day, then 2 pills x 1 day, then 1 pill x 1 day, then stop METHYLPREDNISOLONE 99393087398 No Longer Active Parris Mora MD Active AZITHROMYCIN 250 MG TABS 2 po qd x 1 day, then 1 po qd x 4 days AZITHROMYCIN 64011929173 No Longer Active Perez Mora MD Active SYMBICORT 160-4.5 MCG/ACT AERO 2 puffs bid with rinse after 2011 BUDESONIDE-FORMOTEROL FUMARATE 44307155278 No Longer Active Perez Mora MD Active LYRICA 75 MG CAPS TAKE 1 CAPSULE BY MOUTH TWICE DAILY 2013 PREGABALIN 25803233817 No Longer Active Carlton Hu MD Active LYRICA 100 MG CAPS Take 1 tab po BID for fibromyalgia PREGABALIN 06210275381 Active Elise Whitmore APRN Active TOPAMAX 25 MG TABS 1 qHS x 1 week, then 1 BID x 1 week, then 1 qAM and 2 qHS x 1 week, then 2 BID (migraine prevention) TOPIRAMAT E 14525913197 No Longer Active Jerica Farnaz FUENTES Active TOPAMAX 50 MG TABS take 1 tab po BID for migraines. 12/07/10 TOPIRAMATE 44332575411 No Longer Active Jerica Jonesema AGUILARA Ac tive TOPAMAX 100 MG TABS Take 1 tablet po bid TOPIRAMATE 4999 1261196 Active Carlton Hu MD Active TRIAMCINOLONE ACETONIDE 0.1 % CREA apply three times daily prn r beatrice TRIAMCINOLONE ACETONIDE 40933459086 No Longer Active Carlton Hu MD Active PAXIL 40 MG TAB take 1 tab po qday for depression PAROXETINE HCL 35534929861 Active Elise Whitmore BILLET SHEARER Active CHERATUSSIN AC 100-10 MG/5ML SYRP 5ml po q6hr PRN Cough GUAIFENESIN-CODEINE 20502792965 No Longer Active Carlton Hu MD Active MEDROL (REYNA) 4 MG TABS 6 tabs on day 1, 5 tabs on d ay 2, 4 tabs on day 3, 3 tabs on day 4, 2 tabs on day 5, 1 tab on day 6 METHYLPREDNISOLONE 01019519278 No Longer Active Perez Mora MD Active AZITHROMYCIN 250 MG TABS 2 po qd x 1 day, then 1 po qd x 4 days AZITHROMYCIN 06159799995 No Longer Active Perez Mora MD Active PROPRANOLOL HCL 60 MG TABS 1 PO Q D PROPRANOL OL HCL 96904036492 No Longer Active Perez Mora MD Active CHERATUSSIN AC 100-10 MG/5ML SYRP take one tsp po Q 6hours prn c ough GUAIFENESIN-CODEINE 85996325447 No Longer Active Perez Means Active AUGMENTIN 875-125 MG TAB 1 tab by mouth twice daily with food 20 12/03/31 AMOXICILLIN-POT CLAVULANATE 93619566125 No Longer Active Chanel Mora MD Active CHERATUSSIN AC 100-10 MG/5ML SYRP 1 tsp by mouth every 4 hours as needed for cough GUAIFENESIN-CODEINE 80303984138 No Longer Activ e Hugo Restrepo MD Active ACETAMINOPHEN-CODEINE #3 300-30 MG TABS 1 PO Q 4-6 HRS PRN PAIN ACETAMINOPHEN-CODEINE 68588017009 No Longer Active Hugo Restrepo MD Active LEVAQUIN 500 MG TABS take one po QD LEVOFLOXACI N 37612457726 No Longer Active Griffin HERNANDEZ Active PREDNISONE 20 MG TAB Take 3 tabs daily for 3 days , 2 tabs daily for 3 days, 1 tab daily for 3 days, 1/2 tab daily for 3 days P REDNISONE 90656664256 No Longer Active Carlton Hu MD Active AVELOX 400 MG TABS 1 tab by mouth daily MOXIFLO XACIN HCL 28136070836 No Longer Active Carlton Hu MD Active CHERATUSSIN AC 100-10 MG/5ML SYRP 1 tsp by mouth every 4 hours as needed for cough GUAIFENESIN-CODEINE 02671137323 No Longer Activ e Hugo Restrepo MD Active AVELOX 400 MG TABS 1 tab by mouth daily MOXIFLO XACIN HCL 94179875791 No Longer Active Marcy De La Rosa MD PhD Active TERBINAFINE HCL 250 MG TABS 1 qDay TERBINAF INE HCL 21089885515 No Longer Active Marcy De La Rosa MD PhD Active CHERATUSSIN AC 100-10 MG/5ML SYRP 1 tsp by mouth every 4 hours as needed for cough GUAIFENESIN-CODEINE 41263950073 No Longer Activ e Marcy De La Rosa MD PhD Active AVELOX 400 MG TABS 1 tab by mouth daily MOXIFLO XACIN HCL 20341272923 No Longer Active Marcy De La Rosa MD PhD Active HYDROCODONE-ACETAMINOPHEN 5-325 MG TABS 1 po q 6hr PRN cough 201 05/09/16 HYDROCODONE-ACETAMINOPHEN 98500229583 No Longer Active Marcy De La Rosa MD PhD Active PREDNISONE 20 MG TAB 2 tabs daily for 3 days, 1 t ab daily for 3 days, 1/2 tab daily for 2 days PREDNISONE 34266647269 No Longer Active Carlton Hu MD Active CEFDINIR 300 MG CAPS by mouth twice a day CEFDI ODILIA 39073959830 No Longer Active Carlton Hu MD Active HYDROCHLOROTHIAZIDE 25 MG TABS 1 TAB PO DAILY H YDROCHLOROTHIAZIDE 02280742266 Active Carlton Hu MD Active ACETAMINOPHEN-CODEINE #3 300-30 MG TABS 1 tablet po q 4-6hrs prn pain ACETAMINOPHEN-CODEINE 90692168745 No Longer Active Ridge Bess DO Active ZITHROMAX 250 MG TAB 2 po today, then 1 po q days 2-5 AZITHROMYCIN 14429527922 No Longer Active Carlton Hu MD Acti ve CHERATUSSIN AC 100-10 MG/5ML SYRP take 1 tsp po q4-6 hours prn c ough GUAIFENESIN-CODEINE 59947462694 No Longer Active Carlton Hu MD Active ACETAMINOPHEN-CODEINE #3 300-30 MG TABS 1 PO Q 4-6 HR PRN PAIN 2 ACETAMINOPHEN-CODEINE 98267027945 No Longer Active Carlton rich MD Active LORTAB 7.5-500 MG/15ML ELIX 7.5 ml po q 4 hour prn cough HYDROCODONE-ACETAMINOPHEN 71019422449 No Longer Active Carlton Hu MD Active PREDNISONE 20 MG TAB 1 po bid 3 days, then 1 po q day 3 days 201 05/03/07 PREDNISONE 41022329639 No Longer Active Carlton Hu MD Active ELMIRON 100 MG CAPS 2 tablets in the am and 1 tablet at hs PENTOSAN POLYSULFATE SODIUM 56861624979 Active Carlton Hu MD Ac tive CEFDINIR 300 MG CAPS by mouth twice a day CEFDI ODILIA 49450832000 No Longer Active Carlton Hu MD Active CEFDINIR 300 MG CAPS by mouth twice a day CEFDI ODILIA 30434728239 No Longer Active Carlton Hu MD Active CEFDINIR 300 MG CAPS by mouth twice a day CEFDI ODILIA 41813946441 No Longer Active Carlton Hu MD Active TESSALON PERLES 100 MG CAP 1 tablet by mouth 3 times daily a s needed for cough BENZONATATE 85632902907 No Longer Active Carlton bustamante MD Active CEFDINIR 300 MG CAPS by mouth twice a day CEFDI ODILIA 70829818065 No Longer Active Carlton Hu MD Active ZITHROMAX Z-REYNA 250 MG TABS 2 today, then 1 daily for 4 days 201 04/09/17 AZITHROMYCIN 74619773309 No Longer Active Hugo Restrepo MD Active TESSALON PERLES 100 MG CAP 1 tablet by mouth 3 times daily a s needed for cough TESSALON PERLES 100 MG CAP 092804 BENZONATATE I nactive PREDNISONE 20 MG TAB 1 po bid 3 days, then 1 po q day 3 days 201 05/03/07 PREDNISONE 20 MG TAB 433279 PREDNISONE Inactive LORTAB 7.5-500 MG/15ML ELIX 7.5 ml po q 4 hour prn cough LORTAB 7.5-500 MG/15ML ELIX HYDROCODONE-ACETAMINOPHEN Inacti ve ACETAMINOPHEN-CODEINE #3 300-30 MG TABS 1 PO Q 4-6 HR PRN PAIN 2 ACETAMINOPHEN-CODEINE #3 300-30 MG TABS 610427 ACETAMIN OPHEN-CODEINE Inactive CHERATUSSIN AC 100-10 MG/5ML SYRP take 1 tsp po q4-6 hours prn c ough CHERATUSSIN AC 100-10 MG/5ML SYRP 679645 GUAIFENESIN-CO DEINE Inactive ACETAMINOPHEN-CODEINE #3 300-30 MG TABS 1 tablet po q 4-6hrs prn pain ACETAMINOPHEN-CODEINE #3 300-30 MG TABS 583678 ACETAMIN OPHEN-CODEINE Inactive HYDROCODONE-ACETAMINOPHEN 5-325 MG TABS 1 po q 6hr PRN cough 201 05/09/16 HYDROCODONE-ACETAMINOPHEN 5-325 MG TABS 381993 HYDROCODONE-ACETAMINOPHEN Inactive AVELOX 400 MG TABS 1 tab by mouth daily A VELOX 400 MG TABS 250630 MOXIFLOXACIN HCL Inactive CHERATUSSIN AC 100-10 MG/5ML SYRP 1 tsp by mouth every 4 hours as needed for cough CHERATUSSIN AC 100-10 MG/5ML SYRP 689920 GUAIFENESIN-CODEINE Inactive TERBINAFINE HCL 250 MG TABS 1 qDay TERBINAFINE HCL 250 MG TABS 329945 TERBINAFINE HCL Inactive CHERATUSSIN AC 100-10 MG/5ML SYRP 1 tsp by mouth every 4 hours as needed for cough CHERATUSSIN AC 100-10 MG/5ML SYRP 914918 GUAIFENESIN-CODEINE Inactive ACETAMINOPHEN-CODEINE #3 300-30 MG TABS 1 PO Q 4-6 HRS PRN PAIN ACETAMINOPHEN-CODEINE #3 300-30 MG TABS 417285 ACETAMINOPHEN-CODEIN E Inactive CHERATUSSIN AC 100-10 MG/5ML SYRP 1 tsp by mouth every 4 hours as needed for cough CHERATUSSIN AC 100-10 MG/5ML SYRP 497663 GUAIFENESIN-CODEINE Inactive AUGMENTIN 875-125 MG TAB 1 tab by mouth twice daily with food 20 12/03/31 AUGMENTIN 875-125 MG TAB 445013 AMOXICILLIN-POT CLAVULA EFE Inactive CHERATUSSIN AC 100-10 MG/5ML SYRP take one tsp po Q 6hours prn c ough CHERATUSSIN AC 100-10 MG/5ML SYRP 880894 GUAIFENESIN-CO DEINE Inactive PROPRANOLOL HCL 60 MG TABS 1 PO Q D P ROPRANOLOL HCL 60 MG TABS 866353 PROPRANOLOL HCL Inactive TOPAMAX 50 MG TABS take 1 tab po BID for migraines. 12/07/10 TOPAMAX 50 MG TABS 395880 TOPIRAMATE Inactive TOPAMAX 25 MG TABS 1 qHS x 1 week, then 1 BID x 1 week, then 1 qAM and 2 qHS x 1 week, then 2 BID (migraine prevention) TOPAMAX 2 5 MG TABS 227956 TOPIRAMATE Inactive LYRICA 75 MG CAPS TAKE 1 CAPSULE BY MOUTH TWICE DAILY LYRICA 75 MG CAPS PREGABALIN Inactive SYMBICORT 160-4.5 MCG/ACT AERO 2 puffs bid with rinse after 2011 SYMBICORT 160-4.5 MCG/ACT AERO BUDESONIDE-FORMOT SÁNCHEZ FUMARATE Inactive PROMETHAZINE-CODEINE 6.25-10 MG/5ML SYRP 1 tsp by mouth ever y 8 hours prn cough PROMETHAZINE-CODEINE 6.25-10 MG/5ML SYRP 964628 PROMETHAZINE-CODEINE Inactive CYMBALTA 30 MG CPEP 1 cap by mouth daily CYMBALTA 30 MG CPEP 346622 DULOXETINE HCL Inactive PREMARIN 0.625 MG TABS TAKE 1 TAB BY MOUTH DAILY 07/25 PREMARIN 0.625 MG TABS ESTROGENS CONJUGATED Inactive CHERATUSSIN AC 100-10 MG/5ML SYRP 1 tsp by mouth every 4 hours as needed for cough CHERATUSSIN AC 100-10 MG/5ML SYRP 518790 GUAIFENESIN-CODEINE Inactive PROMETHAZINE-CODEINE 6.25-10 MG/5ML SYRP 1 tsp by mout h every 6 hours if needed for cough PROMETHAZINE-CODEINE 6.25-10 MG/5ML SYRP 719216 PROMETHAZINE-CODEINE Inactive CHERATUSSIN AC 100-10 MG/5ML SYRP 1 tsp by mouth every 4 hours as needed for cough CHERATUSSIN AC 100-10 MG/5ML SYRP 817452 GUAIFENESIN-CODEINE Inactive FLUTICASONE PROPIONATE 50 MCG/ACT SUSP 1 to 2 sprays each no stril daily FLUTICASONE PROPIONATE 50 MCG/ACT SUSP 803639 FLUTICASONE PROPIONATE Inactive PREDNISONE 20 MG ORAL TABS 3 tab PO qd x 2d, 2 tab PO qd x 2d, 1 tab PO qd x 2d, 1/2 tab PO qd x 2d PREDNISONE 20 MG ORAL TABS 755544 PREDNISONE Inactive LEVOFLOXACIN 500 MG ORAL TABS 1 tab PO daily x 10 days LEVOFLOXACIN 500 MG ORAL TABS 212493 LEVOFLOXACIN Inactive CYCLOBENZAPRINE HCL 10 MG TABS 1 tablet by mouth BID prn had cherelle n CYCLOBENZAPRINE HCL 10 MG TABS 099937 CYCLOBENZAPRINE H CL Inactive ZOCOR 40 MG TAB 1 tab by mouth daily ZOCOR 40 M G TAB 412984 SIMVASTATIN Inactive ZITHROMAX Z-REYNA 250 MG TABS 2 today, then 1 daily for 4 days 201 04/09/17 ZITHROMAX Z-REYNA 250 MG TABS 0786134 AZITHROMYCIN Inac tive CEFDINIR 300 MG CAPS [...] q days 2-5 ZITHROMAX 250 MG TAB 1377854 AZITHROMYCIN Inactive CEFDINIR 300 MG CAPS by mouth twice a day CEFDINIR 300 MG CAPS 20020704 CEFDINIR Inactive PREDNISONE 20 MG TAB 2 tabs daily for 3 days, 1 t ab daily for 3 days, 1/2 tab daily for 2 days PREDNISONE 20 MG TAB 938816 PREDNISON E Inactive AVELOX 400 MG TABS 1 tab by mouth daily A VELOX 400 MG TABS 789423 MOXIFLOXACIN HCL Inactive AVELOX 400 MG TABS 1 tab by mouth daily A VELOX 400 MG TABS 233366 MOXIFLOXACIN HCL Inactive PREDNISONE 20 MG TAB Take 3 tabs daily for 3 days , 2 tabs daily for 3 days, 1 tab daily for 3 days, 1/2 tab daily for 3 days PREDNISONE 20 MG TAB 540630 PREDNISONE Inactive LEVAQUIN 500 MG TABS take one po QD LEVAQUIN 50 0 MG TABS 109468 LEVOFLOXACIN Inactive AZITHROMYCIN 250 MG TABS 2 po qd x 1 day, then 1 po qd x 4 days AZITHROMYCIN 250 MG TABS 5284211 AZITHROMYCIN Inactiv e MEDROL (REYNA) 4 MG TABS 6 tabs on day 1, 5 tabs on d ay 2, 4 tabs on day 3, 3 tabs on day 4, 2 tabs on day 5, 1 tab on day 6 MEDROL (REYNA) 4 MG TABS 061974 METHYLPREDNISOLONE Inactive CHERATUSSIN AC 100-10 MG/5ML SYRP 5ml po q6hr PRN Cough CHERATUSSIN AC 100-10 MG/5ML SYRP 072306 GUAIFENESIN-CODEINE Inacti ve TRIAMCINOLONE ACETONIDE 0.1 % CREA apply three times daily prn r beatrice TRIAMCINOLONE ACETONIDE 0.1 % CREA 0839982 TRIAMCINOLONE ACETONIDE Inactive AZITHROMYCIN 250 MG TABS 2 po qd x 1 day, then 1 po qd x 4 days AZITHROMYCIN 250 MG TABS 6587211 AZITHROMYCIN Inactiv e MEDROL (REYNA) 4 MG TABS 6 pills x 1 day, then 5 pill s x 1 day then 4 pills x 1 day, then 3 pills x 1 day, then 2 pills x 1 day, then 1 pill x 1 day, then stop MEDROL (REYNA) 4 MG TABS 845095 METHYLPREDNISOLONE Inactive AMOXICILLIN 500 MG CAP 1 tab by mouth 3 times daily x 10 days 20 13/03/08 AMOXICILLIN 500 MG CAP 284150 AMOXICILLIN Inactive AMOXICILLIN 500 MG CAP 1 tab by mouth 3 times daily x 10 days 20 14/04/28 AMOXICILLIN 500 MG CAP 286948 AMOXICILLIN Inactive ZITHROMAX 250 MG TAB 2 po today, then 1 po q days 2-5 ZITHROMAX 250 MG TAB 1974012 AZITHROMYCIN Inactive AUGMENTIN 875-125 MG TAB 1 po BID x 10 days AUGMENTIN 875- 125 MG TAB 538010 AMOXICILLIN-POT CLAVULANATE Inactive ZITHROMAX Z-REYNA 250 MG TABS 2 today, then 1 daily for 4 days 201 08/07/20 ZITHROMAX Z-REYNA 250 MG TABS 6004319 AZITHROMYCIN Inac tive ZITHROMAX 250 MG TAB 2 po today, then 1 po q days 2-5 ZITHROMAX 250 MG TAB 1571834 AZITHROMYCIN Inactive ZITHROMAX Z-REYNA 250 MG TABS 2 today, then 1 daily for 4 days 201 08/30/03 ZITHROMAX Z-REYNA 250 MG TABS 6322199 AZITHROMYCIN Inac tive CEFDINIR 300 MG CAPS 1 po BID x 10 days C EFDINIR 300 MG CAPS 497156 CEFDINIR Inactive ZITHROMAX 250 MG TAB 2 po today, then 1 po q days 2-5 ZITHROMAX 250 MG TAB 8591998 AZITHROMYCIN Inactive LEVAQUIN 500 MG TAB 1 tablet by mouth daily LEVAQUIN 500 MG TAB 640400 LEVOFLOXACIN Inactive Vital Signs Date Name Value [...] Measured Encounters Code Encounter Date Provider Facility CPT-56547 Level 3 Est. Patient 10:11:46 CDT Carlton rich MD [facility] CPT-25645 Level 3 Est. Patient 17:29:43 CDT EliseJavier BILLET SHEARER [facility] CPT-27025 Level 3 Est. Patient 11:58:06 CDT Italo [facility] CPT-31238 Level 4 Est. Patient 14:36:51 CDT Carlton rich MD [facility] CPT-52298 Level 3 Est. Patient 18:16:00 DRAFTER REFRIGERATION Blaine HERNANDEZ [facility] CPT-16700 Level 3 Est. Patient 09:45:49 DRAFTER REFRIGERATION Carlton rich MD [facility] CPT-71747 Level 3 Est. Patient 13:19:20 CDT Carlton rich MD [facility] CPT-83521 Level 3 Est. Patient 13:06:43 CDT Ridge tam DO [facility]-92849 Level 3 Est. Patient 10:03:07 CDT Perez Mora MD [facility]-40790 Level 3 Est. Patient 19:50:35 DRAFTER REFRIGERATION Carlton rich MD [facility]-00169 Level 4 Est. Patient 18:05:01 DRAFTER REFRIGERATION Carlton rich MD [facility]-90646 Level 3 Est. Patient 10:45:55 DRAFTER REFRIGERATION Hugo Restrepo MD [facility]-18428 Level 3 Est. Patient 14:12:49 CDT Griffin HERNANDEZ [facility]-05636 Level 3 Est. Patient 17:37:24 CDT Carlton rich MD [facility]-22999 Level 3 Est. Patient 16:51:54 CDT Carlton rich MD [facility]-33438 Level 3 Est. Patient 12:18:11 CDT Hugo Restrepo MD [facility]-57061 Level 3 Est. Patient 11:30:25 CDT Marcy crisostomo MD PhD [facility]-94293 Level 3 Est. Patient 12:00:47 DRAFTER REFRIGERATION Carlton rich MD [facility]-36837 Level 3 Est. Patient 16:31:06 DRAFTER REFRIGERATION Carlton rich MD [facility] CPT-72919 Level 3 Est. Patient 16:23:24 DRAFTER REFRIGERATION Ridge tam DO [facility]-10652 Level 3 Est. Patient 12:34:12 CDT Carlton rich MD [facility]-75228 Level 2 Est. Patient 15:43:33 CDT Robi armstrong MD [facility]-78071 Level 4 Est. Patient 14:04:44 CDT Carlton rich MD [facility] CPT-24972 Level 3 Est. Patient 05:47:59 CDT Ridge Jaun Celeste anel DO [facility] CPT-72899 Level 3 Est. Patient 13:12:53 DRAFTER REFRIGERATION Carlton rich MD [facility] CPT-90551 Level 3 Est. Patient 14:26:53 CDT Hugo Restrepo MD [facility] Procedures Code Procedure Name Date Entry Date Standard Desc ription CPT-J0696 Rocephin 1gm Inj Solr 14:32:13 CDT CPT-J1020 Depo Medrol 60 mg (Methyl Prednisolone A cetate) 14:32:13 CDT CPT-J1100 Decadron 6mg (Dexamethasone) 14:32:13 CDT 2 CPT-85623 Hip bilat min 2V w AP pelvis 13:16:20 CDT 2 CPT-36609 Pelvis only 13:07:33 CDT CPT-98695 Spec Collection and Handling Fee 11:25:12 C DT CPT-37136 Fluzone Quadrivalent Intramuscular Suspe nsion 0.5 ML 14:31:55 CDT CPT-20953 Abx/Therapy Injection 13:28:47 DRAFTER REFRIGERATION CPT-J2930 Solu Medrol 125 mg (Methyl Prednisolone Sodium Succinate) 12:00:47 DRAFTER REFRIGERATION CPT-91160 Venipuncture Draw Fee 11:33:31 CDT CPT-25848 EKG Trac and Interp 11:21:09 CDT CPT-76629 Chest 2V Frontal and Lat 11:21:09 CDT 12/15 CPT-23161 Venipuncture Draw Fee 08:02:34 CDT CPT-73050 Chest 2V Frontal and Lat 05:47:59 CDT 06/05
--- OUTSIDE RECORDS SUMMARY | 2019-10-08 08:29 | XMS REPORT | Clinical Summary ---
Author Author Caitlin, Juliana Martinez Organization [facility] Address Unknown Phone Unavailable Allergies, Adverse Reactions, Alerts Allergy Name Reaction Description Start Date Severity Status Pr ovider No Known Allergies Maryjonif erica Schulz Conditions or Problems Problem Name Problem Code [...] [facility] examination of defined subpopulat ions BRONCHITIS ICD-490 Inactive Hugo Restrepo MD 201 [...] Generic Name NDC Status Provider Patient Instruction AMOXICILLIN 500 MG CAP 1 tab by mouth 3 times daily x 10 days 20 14/04/28 AMOXICILLIN [id number] No Longer Active Carlton Hu MD Active AMOXICILLIN 500 MG CAP 1 tab by mouth 3 times daily x 10 days 20 13/03/08 AMOXICILLIN 03389540896 No Longer Active Carlton Hu MD Active CHERATUSSIN AC 100-10 MG/5ML SYRP 1 tsp by mouth every 4 hours as needed for cough GUAIFENESIN-CODEINE 72193661293 Active Carlton banks MD Active CYCLOBENZAPRINE HCL 10 MG TABS 1 tablet by mouth BID prn had pain 2 CYCLOBENZAPRINE HCL 08147112838 Active Carlton Hu MD A ctive PROMETHAZINE-CODEINE 6.25-10 MG/5ML SYRP 1 tsp by mouth ever y 8 hours prn cough PROMETHAZINE-CODEINE 90195434756 No Longer Active Robert Hu MD Active MEDROL (REYNA) 4 MG TABS 6 pills x 1 day, then 5 pill s x 1 day then 4 pills x 1 day, then 3 pills x 1 day, then 2 pills x 1 day, then 1 pill x 1 day, then stop METHYLPREDNISOLONE 03647266677 No Longer Active Parris Mora MD Active AZITHROMYCIN 250 MG TABS 2 po qd x 1 day, then 1 po qd x 4 days AZITHROMYCIN 06494570948 No Longer Active Perez Mora MD Active SYMBICORT 160-4.5 MCG/ACT AERO 2 puffs bid with rinse after 2011 BUDESONIDE-FORMOTEROL FUMARATE 97905098804 No Longer Active Perez Mora MD Active LYRICA 75 MG CAPS TAKE 1 CAPSULE BY MOUTH TWICE DAILY 2013 PREGABALIN 05927769816 No Longer Active Carlton Hu MD Active LYRICA 100 MG CAPS Take 1 tab po BID for fibromyalgia PREGABALIN 11668847075 Active Carlton Hu MD Active TOPAMAX 25 MG TABS 1 qHS x 1 week, then 1 BID x 1 week, then 1 qAM and 2 qHS x 1 week, then 2 BID (migraine prevention) TOPIRAMAT E 47008937930 No Longer Active Jerica FUENTES Active TOPAMAX 50 MG TABS take 1 tab po BID for migraines. 12/07/10 TOPIRAMATE 83913570051 No Longer Active Jerica AGUILARA Ac tive TOPAMAX 100 MG TABS Take 1 tablet po bid TOPIRAMATE 4999 6322264 Active Carlton Hu MD Active TRIAMCINOLONE ACETONIDE 0.1 % CREA apply three times daily prn r beatrice TRIAMCINOLONE ACETONIDE 66259728689 No Longer Active Carlton Hu MD Active PAXIL 40 MG TAB take 1 tab po qday for depression PAROXETINE HCL 54917216527 Active Carlton Hu MD Active CYMBALTA 30 MG CPEP 1 cap by mouth daily DULOXE SNEHA HCL 54802648177 Active Carlton Hu MD Active CHERATUSSIN AC 100-10 MG/5ML SYRP 5ml po q6hr PRN Cough GUAIFENESIN-CODEINE 25456635735 No Longer Active Carlton Hu MD Active MEDROL (REYNA) 4 MG TABS 6 tabs on day 1, 5 tabs on d ay 2, 4 tabs on day 3, 3 tabs on day 4, 2 tabs on day 5, 1 tab on day 6 METHYLPREDNISOLONE 65217379440 No Longer Active Perez Mora MD Active AZITHROMYCIN 250 MG TABS 2 po qd x 1 day, then 1 po qd x 4 days AZITHROMYCIN 74294928163 No Longer Active Perez Mora MD Active PROPRANOLOL HCL 60 MG TABS 1 PO Q D PROPRANOL OL HCL 74214053223 No Longer Active Perez Mora MD Active CHERATUSSIN AC 100-10 MG/5ML SYRP take one tsp po Q 6hours prn c ough GUAIFENESIN-CODEINE 51237107782 No Longer Active Perez Means Active AUGMENTIN 875-125 MG TAB 1 tab by mouth twice daily with food 20 12/03/31 AMOXICILLIN-POT CLAVULANATE 39262068574 No Longer Active Chanel Mora MD Active CHERATUSSIN AC 100-10 MG/5ML SYRP 1 tsp by mouth every 4 hours as needed for cough GUAIFENESIN-CODEINE 64836544084 No Longer Activ e Hugo Restrepo MD Active ACETAMINOPHEN-CODEINE #3 300-30 MG TABS 1 PO Q 4-6 HRS PRN PAIN ACETAMINOPHEN-CODEINE 32013307784 No Longer Active Hugo Restrepo MD Active LEVAQUIN 500 MG TABS take one po QD LEVOFLOXACI N 58074893079 No Longer Active Griffin HERNANDEZ Active PREDNISONE 20 MG TAB Take 3 tabs daily for 3 days , 2 tabs daily for 3 days, 1 tab daily for 3 days, 1/2 tab daily for 3 days P REDNISONE 36727293074 No Longer Active Carlton Hu MD Active AVELOX 400 MG TABS 1 tab by mouth daily MOXIFLO XACIN HCL 52191068119 No Longer Active Carlton Hu MD Active CHERATUSSIN AC 100-10 MG/5ML SYRP 1 tsp by mouth every 4 hours as needed for cough GUAIFENESIN-CODEINE 46337767880 No Longer Activ e Hugo Restrepo MD Active AVELOX 400 MG TABS 1 tab by mouth daily MOXIFLO XACIN HCL 01885542983 No Longer Active Marcy De La Rosa MD PhD Active TERBINAFINE HCL 250 MG TABS 1 qDay TERBINAF INE HCL 02016403420 No Longer Active Marcy De La Rosa MD PhD Active CHERATUSSIN AC 100-10 MG/5ML SYRP 1 tsp by mouth every 4 hours as needed for cough GUAIFENESIN-CODEINE 65720925819 No Longer Activ e Marcy De La Rosa MD PhD Active AVELOX 400 MG TABS 1 tab by mouth daily MOXIFLO XACIN HCL 12133544660 No Longer Active Marcy De La Rosa MD PhD Active HYDROCODONE-ACETAMINOPHEN 5-325 MG TABS 1 po q 6hr PRN cough 201 05/09/16 HYDROCODONE-ACETAMINOPHEN 14273029010 No Longer Active Marcy De La Rosa MD PhD Active PREDNISONE 20 MG TAB 2 tabs daily for 3 days, 1 t ab daily for 3 days, 1/2 tab daily for 2 days PREDNISONE 75257686207 No Longer Active Carlton Hu MD Active CEFDINIR 300 MG CAPS by mouth twice a day CEFDI ODILIA 47225053018 No Longer Active Carlton Hu MD Active ZOCOR 40 MG TAB 1 tab by mouth daily SIMVASTATIN 69583545595 Active Carlton Hu MD Active HYDROCHLOROTHIAZIDE 25 MG TABS 1 TAB PO DAILY H YDROCHLOROTHIAZIDE 95226099346 Active Carlton Hu MD Active ACETAMINOPHEN-CODEINE #3 300-30 MG TABS 1 tablet po q 4-6hrs prn pain ACETAMINOPHEN-CODEINE 74739485175 No Longer Active Ridge Bess DO Active ZITHROMAX 250 MG TAB 2 po today, then 1 po q days 2-5 AZITHROMYCIN 98500752241 No Longer Active Carlton Hu MD Acti ve CHERATUSSIN AC 100-10 MG/5ML SYRP take 1 tsp po q4-6 hours prn c ough GUAIFENESIN-CODEINE 98089836967 No Longer Active Carlton Hu MD Active ACETAMINOPHEN-CODEINE #3 300-30 MG TABS 1 PO Q 4-6 HR PRN PAIN 2 ACETAMINOPHEN-CODEINE 14334487406 No Longer Active Carlton rich MD Active LORTAB 7.5-500 MG/15ML ELIX 7.5 ml po q 4 hour prn cough HYDROCODONE-ACETAMINOPHEN 13705355538 No Longer Active Carlton Hu MD Active PREDNISONE 20 MG TAB 1 po bid 3 days, then 1 po q day 3 days 201 05/03/07 PREDNISONE 07207164697 No Longer Active Carlton Hu MD Active ELMIRON 100 MG CAPS 2 tablets in the am and 1 tablet at hs PENTOSAN POLYSULFATE SODIUM 15751728641 Active Gracie Feura Bush Active CEFDINIR 300 MG CAPS by mouth twice a day CEFDI ODILIA 69587534690 No Longer Active Carlton Hu MD Active CEFDINIR 300 MG CAPS by mouth twice a day CEFDI ODILIA 13722158439 No Longer Active Carlton Hu MD Active CEFDINIR 300 MG CAPS by mouth twice a day CEFDI ODILIA 63732705131 No Longer Active Carlton Hu MD Active TESSALON PERLES 100 MG CAP 1 tablet by mouth 3 times daily a s needed for cough BENZONATATE 63024651086 No Longer Active Carlton bustamante MD Active CEFDINIR 300 MG CAPS by mouth twice a day CEFDI ODILIA 90645522052 No Longer Active Carlton Hu MD Active ZITHROMAX Z-REYNA 250 MG TABS 2 today, then 1 daily for 4 days 201 04/09/17 AZITHROMYCIN 43350081114 No Longer Active Hugo Restrepo MD Active PREMARIN 0.625 MG TABS TAKE 1 TAB BY MOUTH DAILY ESTROGENS CONJUGATED 90693675628 Active Carlton Hu MD Active TESSALON PERLES 100 MG CAP 1 tablet by mouth 3 times daily a s needed for cough TESSALON PERLES 100 MG CAP 596833 BENZONATATE I nactive PREDNISONE 20 MG TAB 1 po bid 3 days, then 1 po q day 3 days 201 05/03/07 PREDNISONE 20 MG TAB 532098 PREDNISONE Inactive LORTAB 7.5-500 MG/15ML ELIX 7.5 ml po q 4 hour prn cough LORTAB 7.5-500 MG/15ML ELIX HYDROCODONE-ACETAMINOPHEN Inacti ve ACETAMINOPHEN-CODEINE #3 300-30 MG TABS 1 PO Q 4-6 HR PRN PAIN 2 ACETAMINOPHEN-CODEINE #3 300-30 MG TABS 860212 ACETAMIN OPHEN-CODEINE Inactive CHERATUSSIN AC 100-10 MG/5ML SYRP take 1 tsp po q4-6 hours prn c ough CHERATUSSIN AC 100-10 MG/5ML SYRP 894277 GUAIFENESIN-CO DEINE Inactive ACETAMINOPHEN-CODEINE #3 300-30 MG TABS 1 tablet po q 4-6hrs prn pain ACETAMINOPHEN-CODEINE #3 300-30 MG TABS 941399 ACETAMIN OPHEN-CODEINE Inactive HYDROCODONE-ACETAMINOPHEN 5-325 MG TABS 1 po q 6hr PRN cough 201 05/09/16 HYDROCODONE-ACETAMINOPHEN 5-325 MG TABS 927627 HYDROCODONE-ACETAMINOPHEN Inactive AVELOX 400 MG TABS 1 tab by mouth daily A VELOX 400 MG TABS 618539 MOXIFLOXACIN HCL Inactive CHERATUSSIN AC 100-10 MG/5ML SYRP 1 tsp by mouth every 4 hours as needed for cough CHERATUSSIN AC 100-10 MG/5ML SYRP 150299 GUAIFENESIN-CODEINE Inactive TERBINAFINE HCL 250 MG TABS 1 qDay TERBINAFINE HCL 250 MG TABS 490483 TERBINAFINE HCL Inactive CHERATUSSIN AC 100-10 MG/5ML SYRP 1 tsp by mouth every 4 hours as needed for cough CHERATUSSIN AC 100-10 MG/5ML SYRP 124610 GUAIFENESIN-CODEINE Inactive ACETAMINOPHEN-CODEINE #3 300-30 MG TABS 1 PO Q 4-6 HRS PRN PAIN ACETAMINOPHEN-CODEINE #3 300-30 MG TABS 135131 ACETAMINOPHEN-CODEIN E Inactive CHERATUSSIN AC 100-10 MG/5ML SYRP 1 tsp by mouth every 4 hours as needed for cough CHERATUSSIN AC 100-10 MG/5ML SYRP 115541 GUAIFENESIN-CODEINE Inactive AUGMENTIN 875-125 MG TAB 1 tab by mouth twice daily with food 20 12/03/31 AUGMENTIN 875-125 MG TAB 237838 AMOXICILLIN-POT CLAVULA EFE Inactive CHERATUSSIN AC 100-10 MG/5ML SYRP take one tsp po Q 6hours prn c ough CHERATUSSIN AC 100-10 MG/5ML SYRP 922835 GUAIFENESIN-CO DEINE Inactive PROPRANOLOL HCL 60 MG TABS 1 PO Q D P ROPRANOLOL HCL 60 MG TABS 288905 PROPRANOLOL HCL Inactive TOPAMAX 50 MG TABS take 1 tab po BID for migraines. 12/07/10 TOPAMAX 50 MG TABS 650498 TOPIRAMATE Inactive TOPAMAX 25 MG TABS 1 qHS x 1 week, then 1 BID x 1 week, then 1 qAM and 2 qHS x 1 week, then 2 BID (migraine prevention) TOPAMAX 2 5 MG TABS 653425 TOPIRAMATE Inactive LYRICA 75 MG CAPS TAKE 1 CAPSULE BY MOUTH TWICE DAILY LYRICA 75 MG CAPS PREGABALIN Inactive SYMBICORT 160-4.5 MCG/ACT AERO 2 puffs bid with rinse after 2011 SYMBICORT 160-4.5 MCG/ACT AERO BUDESONIDE-FORMOT SÁNCHEZ FUMARATE Inactive PROMETHAZINE-CODEINE 6.25-10 MG/5ML SYRP 1 tsp by mouth ever y 8 hours prn cough PROMETHAZINE-CODEINE 6.25-10 MG/5ML SYRP 330231 PROMETHAZINE-CODEINE Inactive ZITHROMAX Z-REYNA 250 MG TABS 2 today, then 1 daily for 4 days 201 04/09/17 ZITHROMAX Z-REYNA 250 MG TABS 6426166 AZITHROMYCIN Inac tive CEFDINIR 300 MG CAPS [...] q days 2-5 ZITHROMAX 250 MG TAB 1600783 AZITHROMYCIN Inactive CEFDINIR 300 MG CAPS by mouth twice a day CEFDINIR 300 MG CAPS 060155 CEFDINIR Inactive PREDNISONE 20 MG TAB 2 tabs daily for 3 days, 1 t ab daily for 3 days, 1/2 tab daily for 2 days PREDNISONE 20 MG TAB 058097 PREDNISON E Inactive AVELOX 400 MG TABS 1 tab by mouth daily A VELOX 400 MG TABS 513014 MOXIFLOXACIN HCL Inactive AVELOX 400 MG TABS 1 tab by mouth daily A VELOX 400 MG TABS 896514 MOXIFLOXACIN HCL Inactive PREDNISONE 20 MG TAB Take 3 tabs daily for 3 days , 2 tabs daily for 3 days, 1 tab daily for 3 days, 1/2 tab daily for 3 days PREDNISONE 20 MG TAB 973460 PREDNISONE Inactive LEVAQUIN 500 MG TABS take one po QD LEVAQUIN 50 0 MG TABS 664470 LEVOFLOXACIN Inactive AZITHROMYCIN 250 MG TABS 2 po qd x 1 day, then 1 po qd x 4 days AZITHROMYCIN 250 MG TABS 1806835 AZITHROMYCIN Inactiv e MEDROL (REYNA) 4 MG TABS 6 tabs on day 1, 5 tabs on d ay 2, 4 tabs on day 3, 3 tabs on day 4, 2 tabs on day 5, 1 tab on day 6 MEDROL (REYNA) 4 MG TABS METHYLPREDNISOLONE Inactive CHERATUSSIN AC 100-10 MG/5ML SYRP 5ml po q6hr PRN Cough CHERATUSSIN AC 100-10 MG/5ML SYRP 995502 GUAIFENESIN-CODEINE Inacti ve TRIAMCINOLONE ACETONIDE 0.1 % CREA apply three times daily prn r beatrice TRIAMCINOLONE ACETONIDE 0.1 % CREA 3948183 TRIAMCINOLONE ACETONIDE Inactive AZITHROMYCIN 250 MG TABS 2 po qd x 1 day, then 1 po qd x 4 days AZITHROMYCIN 250 MG TABS 9352701 AZITHROMYCIN Inactiv e MEDROL (REYNA) 4 MG [...] days 20 13/03/08 AMOXICILLIN 500 MG CAP 293713 AMOXICILLIN Inactive AMOXICILLIN 500 MG CAP 1 tab by mouth 3 times daily x 10 days 20 14/04/28 AMOXICILLIN 500 MG CAP 915201 AMOXICILLIN Inactive Vital Signs Date Name Value Unit Range Description blood pressure, diastolic - 8462-4 78 mm[Hg] [...] 142-424 Encounters Code Encounter Date Provider Facility CPT-20673 Level 3 Est. Patient 10:03:07 CDT Perez Mora MD [facility] CPT-32101 Level 3 Est. Patient 19:50:35 [employer] Carlton rich MD [facility] CPT-09938 Level 4 Est. Patient 18:05:01 W[employer] INSTALLER Carlton rich MD [facility] CPT-93737 Level 3 Est. Patient 10:45:55 W[employer] INSTALLER Hugo Restrepo MD [facility] CPT-48281 Level 3 Est. Patient 14:12:49 CDT Griffin HERNANDEZ [facility] CPT-75809 Level 3 Est. Patient 17:37:24 CDT Carlton rich MD [facility] CPT-20574 Level 3 Est. Patient 16:51:54 CDT Carlton rich MD [facility] CPT-34044 Level 3 Est. Patient 12:18:11 CDT Hugo Restrepo MD [facility] CPT-07227 Level 3 Est. Patient 11:30:25 CDT Marcy crisostomo MD PhD [facility] CPT-05292 Level 3 Est. Patient 12:00:47 WATER PU[employer] INSTALLER Carlton rich MD [facility] CPT-25809 Level 3 Est. Patient 16:31:06 WATER PUMP INSTALLER Carlton rich MD [facility] CPT-72751 Level 3 Est. Patient 16:23:24 WATER PUMP INSTALLER Ridge tam [facility] CPT-16416 Level 3 Est. Patient 12:34:12 CDT Carlton rich MD [facility] CPT-25422 Level 2 Est. Patient 15:43:33 CDT Robi armstrong MD [facility] CPT-79949 Level 4 Est. Patient 14:04:44 CDT Carlton rich MD [facility] CPT-11675 Level 3 Est. Patient 05:47:59 CDT Ridge tam [facility] CPT-23860 Level 3 Est. Patient 13:12:53 WATER PU[employer] INSTALLER Carlton rich MD [facility] CPT-93999 Level 3 Est. Patient 14:26:53 CDT Hugo Restrepo MD [facility] Procedures Code Procedure Name Date Entry Date Standard Desc ription CPT-56490 Spec Collection and Handling Fee 11:25:12 C DT CPT-04916 Fluzone Quadrivalent Intramuscular Suspe nsion 0.5 ML 14:31:55 CDT CPT-76055 Abx/Therapy Injection 13:28:47 WATER [employer] INSTALLER CPT-J2930 Solu Medrol 125 mg (Methyl Prednisolone Sodium Succinate) 12:00:47 W[employer] IN[employer] CPT-11875 Venipuncture Draw Fee 11:33:31 CDT CPT-26810 EKG Trac and Interp 11:21:09 CDT CPT-56791 Chest 2V Frontal and Lat 11:21:09 CDT 12/15 CPT-50731 Venipuncture Draw Fee 08:02:34 CDT CPT-29568 Chest 2V Frontal and Lat 05:47:59 CDT 06/05
--- OUTSIDE RECORDS SUMMARY | 2019-10-08 08:30 | XMS REPORT | Clinical Summary ---
Author Author Caitlin, Juliana Martinez Organization [facility] Address Unknown Phone Unavailable Allergies, [...] s needed for cough HYDROCOD POLST-CHLORPHEN POLST [id number] Active Hugo Restrepo MD Active TUSSIONEX PENNKINETIC ER 10-8 MG/5ML LQCR 5ml po q12hr PRN Cough HYDROCOD POLST-CHLORPHEN POLST 42738182771 No Longer Active Hugo Restrepo MD Active GABAPENTIN 100 MG CAPS 1 po BID for fibromyalgia GABAPENTIN 97217174896 Active Elise Whitmore APRN Active LYRICA 100 MG CAPS Take 1 tab po BID for fibromyalgia PREGABALIN 82977363416 No Longer Active Elise Whitmore APRN Acti ve PROAIR HFA 108 (90 BASE) MCG/ACT AERS 2 puffs four times a d ay as needed ALBUTEROL SULFATE 96235019549 Active Diya D eGuzman APR N Active MUCINEX DM MAXIMUM STRENGTH 60-1200 MG MI68U-AUL 1 tab po q am 2016 DEXTROMETHORPHAN-GUAIFENESIN 96790530739 Active Diya De Guzman [employer]ICENSED HOME INSPECTOR Active PREDNISONE 20 MG TAB 2 tabs daily for 3 days, 1 t ab daily for 3 days, 1/2 tab daily for 2 days PREDNISONE 43711300932 No Longer Active Diya De Guzman APRN Active TUSSIONEX PENNKINETIC ER 10-8 MG/5ML ORAL LQCR 5 mL PO q 12 hrs PRN cough HYDROCOD POLST-CHLORPHEN POLST 45588097417 No Longer Active Diya De Guzman LICENSED HOME INSPECTOR Active FLUTICASONE PROPIONATE 50 MCG/ACT SUSP 2 sprays each n ostril daily until bottle is empty FLUTICASONE PROPIONATE 65024236993 No Longer Ac tive Diya De Guzman APRN Active ASMANEX 60 METERED DOSES 220 MCG/INH AEPB 1 puff bid with ri nse after MOMETASONE FUROATE 62891009489 No Longer Active Diya meneses [employer]ICENSED HOME INSPECTOR Active ZITHROMAX Z-REYNA 250 MG TABS 2 today, then 1 daily for 4 days 201 09/29/14 AZITHROMYCIN 51141876210 No Longer Active Elise Whitmore APRN Active TUSSIONEX PENNKINETIC ER 10-8 MG/5ML LQCR 5ml po q12hr PRN Cough HYDROCOD POLST-CHLORPHEN POLST 20015250757 No Longer Active Elise Whitmore APRN Active MUCINEX D 60-600 MG [id number] 1 tab po q am PSEUDOEPHEDRINE-GUAIFENESIN 78209366921 Active Diya De Guzman LIC[employer]ED HOME INSPECTOR Active PREDNISONE 20 MG TAB 2 tabs daily for 3 days, 1 t ab daily for 3 days, 1/2 tab daily for 2 days PREDNISONE 16046228926 No Longer Active Jiriley De Guzman APRN Active AMOXICILLIN 500 MG CAPS 2 po BID x 10 days AMOX ICILLIN 85436128633 No Longer Active Jillina Frazelbhakti [employer]ICENSED HOME INSPECTOR Active SINGULAIR 10 MG TABS 1 po qday for allergies 2 MONTELUKAST SODIUM 29226302880 No Longer Active Carlton Hu MD Acti ve LEVAQUIN 500 MG TAB 1 tablet by mouth daily LEV OFLOXACIN 50556234035 No Longer Active Carlton Hu MD Active FLUTICASONE PROPIONATE 50 MCG/ACT SUSP 2 sprays each n ostril daily for 2 weeks, then 1 spray each nostril daily. FLUTICASONE PRO PIONATE 32380046575 Active Elise Whitmore APRN Active ZITHROMAX 250 MG TAB 2 po today, then 1 po q days 2-5 AZITHROMYCIN 43683684558 No Longer Active Elise Whitmore APRN Acti ve XANAX 0.5 MG TABS one tablet by mouth daily prn anxiety ALPRAZOLAM 77166299012 Active Elise Whitmore APRN Active CYMBALTA 30 MG CPEP 1 cap by mouth daily for depression DULOXETINE HCL 95290337435 Active Carlton Hu MD Active CEFDINIR 300 MG CAPS 1 po BID x 10 days CEFDINI R 03780403342 No Longer Active Carlton Hu MD Active ZOCOR 40 MG TAB 1 tab by mouth daily SIMVASTATI N 02485980824 No Longer Active Carlton Hu MD Active CYCLOBENZAPRINE HCL 10 MG TABS 1 tablet by mouth BID prn had cherelle n CYCLOBENZAPRINE HCL 03675945519 No Longer Active Carlton Hu MD Active LEVOFLOXACIN 500 MG ORAL TABS 1 tab PO daily x 10 days LEVOFLOXACIN 35514276977 No Longer Active Carlton Hu MD Acti ve PREDNISONE 20 MG ORAL TABS 3 tab PO qd x 2d, 2 tab PO qd x 2d, 1 tab PO qd x 2d, 1/2 tab PO qd x 2d PREDNISONE 50001463002 No Longer Active Carlton Hu MD Active FLUTICASONE PROPIONATE 50 MCG/ACT SUSP 1 to 2 sprays each no stril daily FLUTICASONE PROPIONATE 42518125826 No Longer Active T jaz HERNANDEZ Active CHERATUSSIN AC 100-10 MG/5ML SYRP 1 tsp by mouth every 4 hours as needed for cough GUAIFENESIN-CODEINE 13806302462 No Longer Activ e Blaine HERNANDEZ Active PROMETHAZINE-CODEINE 6.25-10 MG/5ML SYRP 1 tsp by mout h every 6 hours if needed for cough PROMETHAZINE-CODEINE 68476973665 No Long er Active Blaine HERNANDEZ Active CHERATUSSIN AC 100-10 MG/5ML SYRP 1 tsp by mouth every 4 hours as needed for cough GUAIFENESIN-CODEINE 59257090175 No Longer Activ e Blaine HERNANDEZ Active ZITHROMAX Z-REYNA 250 MG TABS 2 today, then 1 daily for 4 days 201 08/30/03 AZITHROMYCIN 13546599890 No Longer Active Columba Raida Act nael ZITHROMAX 250 MG TAB 2 po today, then 1 po q days 2-5 AZITHROMYCIN 97763052419 No Longer Active Carlton Hu MD Acti ve ZITHROMAX Z-REYNA 250 MG TABS 2 today, then 1 daily for 4 days 201 08/07/20 AZITHROMYCIN 03588978145 No Longer Active Columba Raida Act nael AUGMENTIN 875-125 MG TAB 1 po BID x 10 days AMOXICILLIN- POT CLAVULANATE 95759025111 No Longer Active Diya De Guzman APRN Active ZITHROMAX 250 MG TAB 2 po today, then 1 po q days 2-5 AZITHROMYCIN 94745812213 No Longer Active Carlton hall TRAMADOL HCL 50 MG TABS 1 po tid with ES Tylenol TRAMADOL HCL 02520500366 Active Carlton Hu MD Active PREMARIN 0.625 MG TABS TAKE 1 TAB BY MOUTH DAILY 07/25 ESTROGENS CONJUGATED 93612299485 No Longer Active Ridge Bess DO Active CYMBALTA 30 MG CPEP 1 cap by mouth daily DULOXE SNEHA HCL 42751562809 No Longer Active Ridge Bess DO Active AMOXICILLIN 500 MG CAP 1 tab by mouth 3 times daily x 10 days 20 14/04/28 AMOXICILLIN 03072581070 No Longer Active Carlton Hu MD Active AMOXICILLIN 500 MG CAP 1 tab by mouth 3 times daily x 10 days 20 13/03/08 AMOXICILLIN 61412022593 No Longer Active Carlton Hu MD Active PROMETHAZINE-CODEINE 6.25-10 MG/5ML SYRP 1 tsp by mouth ever y 8 hours prn cough PROMETHAZINE-CODEINE 79990960027 No Longer Active Robert Hu MD Active MEDROL (REYNA) 4 MG TABS 6 pills x 1 day, then 5 pill s x 1 day then 4 pills x 1 day, then 3 pills x 1 day, then 2 pills x 1 day, then 1 pill x 1 day, then stop METHYLPREDNISOLONE 25417482841 No Longer Active Parris Mora MD Active AZITHROMYCIN 250 MG TABS 2 po qd x 1 day, then 1 po qd x 4 days AZITHROMYCIN 08039190147 No Longer Active Perez Mora MD Active SYMBICORT 160-4.5 MCG/ACT AERO 2 puffs bid with rinse after 2011 BUDESONIDE-FORMOTEROL FUMARATE 31010065179 No Longer Active Perez Mora MD Active LYRICA 75 MG CAPS TAKE 1 CAPSULE BY MOUTH TWICE DAILY 2013 PREGABALIN 76743956365 No Longer Active Carlton Hu MD Active TOPAMAX 25 MG TABS 1 qHS x 1 week, then 1 BID x 1 week, then 1 qAM and 2 qHS x 1 week, then 2 BID (migraine prevention) TOPIRAMAT E 39633239028 No Longer Active Jerica Goema RMA Active TOPAMAX 50 MG TABS take 1 tab po BID for migraines. 12/07/10 TOPIRAMATE 83760747297 No Longer Active Jerica Gomerissaer RMA Ac tive TOPAMAX 100 MG TABS Take 1 tablet po bid TOPIRAMATE 4999 0207034 Active Elise Whitmore APRN Active TRIAMCINOLONE ACETONIDE 0.1 % CREA apply three times daily prn r beatrice TRIAMCINOLONE ACETONIDE 16990622978 No Longer Active Carlton Hu MD Active PAXIL 40 MG TAB take 1 tab po qday for depression PAROXETINE HCL 06294392634 Active Elise Whitmore APRN Active CHERATUSSIN AC 100-10 MG/5ML SYRP 5ml po q6hr PRN Cough GUAIFENESIN-CODEINE 12407147880 No Longer Active Carlton Hu MD Active MEDROL (REYNA) 4 MG TABS 6 tabs on day 1, 5 tabs on d ay 2, 4 tabs on day 3, 3 tabs on day 4, 2 tabs on day 5, 1 tab on day 6 METHYLPREDNISOLONE 76115694409 No Longer Active Perez Mora MD Active AZITHROMYCIN 250 MG TABS 2 po qd x 1 day, then 1 po qd x 4 days AZITHROMYCIN 32359195245 No Longer Active Perez Mora MD Active PROPRANOLOL HCL 60 MG TABS 1 PO Q D PROPRANOL OL HCL 88874116540 No Longer Active Perez Mora MD Active CHERATUSSIN AC 100-10 MG/5ML SYRP take one tsp po Q 6hours prn c ough GUAIFENESIN-CODEINE 62127311334 No Longer Active Perez Means Active AUGMENTIN 875-125 MG TAB 1 tab by mouth twice daily with food 20 12/03/31 AMOXICILLIN-POT CLAVULANATE 35317193053 No Longer Active Chanel Mora MD Active CHERATUSSIN AC 100-10 MG/5ML SYRP 1 tsp by mouth every 4 hours as needed for cough GUAIFENESIN-CODEINE 03134110238 No Longer Activ e Hugo Restrepo MD Active ACETAMINOPHEN-CODEINE #3 300-30 MG TABS 1 PO Q 4-6 HRS PRN PAIN ACETAMINOPHEN-CODEINE 07102619951 No Longer Active Hugo Restrepo MD Active LEVAQUIN 500 MG TABS take one po QD LEVOFLOXACI N 53493312007 No Longer Active Griffin HERNANDEZ Active PREDNISONE 20 MG TAB Take 3 tabs daily for 3 days , 2 tabs daily for 3 days, 1 tab daily for 3 days, 1/2 tab daily for 3 days P REDNISONE 93378312147 No Longer Active Carlton Hu MD Active AVELOX 400 MG TABS 1 tab by mouth daily MOXIFLO XACIN HCL 19236602237 No Longer Active Carlton Hu MD Active CHERATUSSIN AC 100-10 MG/5ML SYRP 1 tsp by mouth every 4 hours as needed for cough GUAIFENESIN-CODEINE 14582495168 No Longer Activ e Hugo Restrepo MD Active AVELOX 400 MG TABS 1 tab by mouth daily MOXIFLO XACIN HCL 41233237085 No Longer Active Marcy De La Rosa MD PhD Active TERBINAFINE HCL 250 MG TABS 1 qDay TERBINAF INE HCL 16594948453 No Longer Active Marcy De La Rosa MD PhD Active CHERATUSSIN AC 100-10 MG/5ML SYRP 1 tsp by mouth every 4 hours as needed for cough GUAIFENESIN-CODEINE 93147340313 No Longer Activ e Marcy De La Rosa MD PhD Active AVELOX 400 MG TABS 1 tab by mouth daily MOXIFLO XACIN HCL 31603768392 No Longer Active Marcy De La Rosa MD PhD Active HYDROCODONE-ACETAMINOPHEN 5-325 MG TABS 1 po q 6hr PRN cough 201 05/09/16 HYDROCODONE-ACETAMINOPHEN 09982731635 No Longer Active Marcy De La Rosa MD PhD Active PREDNISONE 20 MG TAB 2 tabs daily for 3 days, 1 t ab daily for 3 days, 1/2 tab daily for 2 days PREDNISONE 37460174858 No Longer Active Carlton Hu MD Active CEFDINIR 300 MG CAPS by mouth twice a day CEFDI ODILIA 76510928619 No Longer Active Carlton Hu MD Active HYDROCHLOROTHIAZIDE 25 MG TABS 1 TAB PO DAILY H YDROCHLOROTHIAZIDE 36814305469 Active Carlton Hu MD Active ACETAMINOPHEN-CODEINE #3 300-30 MG TABS 1 tablet po q 4-6hrs prn pain ACETAMINOPHEN-CODEINE 06215375696 No Longer Active Ridge Bess DO Active ZITHROMAX 250 MG TAB 2 po today, then 1 po q days 2-5 AZITHROMYCIN 89452596956 No Longer Active Carlton Hu MD Acti ve CHERATUSSIN AC 100-10 MG/5ML SYRP take 1 tsp po q4-6 hours prn c ough GUAIFENESIN-CODEINE 75414993444 No Longer Active Carlton Hu MD Active ACETAMINOPHEN-CODEINE #3 300-30 MG TABS 1 PO Q 4-6 HR PRN PAIN 2 ACETAMINOPHEN-CODEINE 33195028399 No Longer Active Carlton rich MD Active LORTAB 7.5-500 MG/15ML ELIX 7.5 ml po q 4 hour prn cough HYDROCODONE-ACETAMINOPHEN 95064416598 No Longer Active Carlton Hu MD Active PREDNISONE 20 MG TAB 1 po bid 3 days, then 1 po q day 3 days 201 05/03/07 PREDNISONE 31151936219 No Longer Active Carlton Hu MD Active ELMIRON 100 MG CAPS 2 tablets in the am and 1 tablet at hs PENTOSAN POLYSULFATE SODIUM 62950346125 Active Carlton Hu MD Ac tive CEFDINIR 300 MG CAPS by mouth twice a day CEFDI ODILIA 34001423372 No Longer Active Carlton Hu MD Active CEFDINIR 300 MG CAPS by mouth twice a day CEFDI ODILIA 84195604833 No Longer Active Carlton Hu MD Active CEFDINIR 300 MG CAPS by mouth twice a day CEFDI ODILIA 89393855248 No Longer Active Carlton Hu MD Active TESSALON PERLES 100 MG CAP 1 tablet by mouth 3 times daily a s needed for cough BENZONATATE 97947577739 No Longer Active Carlton bustamante MD Active CEFDINIR 300 MG CAPS by mouth twice a day CEFDI ODILIA 78415145481 No Longer Active Carlton Hu MD Active ZITHROMAX Z-REYNA 250 MG TABS 2 today, then 1 daily for 4 days 201 04/09/17 AZITHROMYCIN 40411658381 No Longer Active Hugo Restrepo MD Active TESSALON PERLES 100 MG CAP 1 tablet by mouth 3 times daily a s needed for cough TESSALON PERLES 100 MG CAP 383342 BENZONATATE I nactive PREDNISONE 20 MG TAB 1 po bid 3 days, then 1 po q day 3 days 201 05/03/07 PREDNISONE 20 MG TAB 700991 PREDNISONE Inactive LORTAB 7.5-500 MG/15ML ELIX 7.5 ml po q 4 hour prn cough LORTAB 7.5-500 MG/15ML ELIX HYDROCODONE-ACETAMINOPHEN Inacti ve ACETAMINOPHEN-CODEINE #3 300-30 MG TABS 1 PO Q 4-6 HR PRN PAIN 2 ACETAMINOPHEN-CODEINE #3 300-30 MG TABS ACETAMIN OPHEN-CODEINE Inactive CHERATUSSIN AC 100-10 MG/5ML SYRP take 1 tsp po q4-6 hours prn c ough CHERATUSSIN AC 100-10 MG/5ML SYRP 824398 GUAIFENESIN-CO DEINE Inactive ACETAMINOPHEN-CODEINE #3 300-30 MG TABS 1 tablet po q 4-6hrs prn pain ACETAMINOPHEN-CODEINE #3 300-30 MG TABS ACETAMIN OPHEN-CODEINE Inactive HYDROCODONE-ACETAMINOPHEN 5-325 MG TABS 1 po q 6hr PRN cough 201 05/09/16 HYDROCODONE-ACETAMINOPHEN 5-325 MG TABS 636810 HYDROCODONE-ACETAMINOPHEN Inactive AVELOX 400 MG TABS 1 tab by mouth daily A VELOX 400 MG TABS 182493 MOXIFLOXACIN HCL Inactive CHERATUSSIN AC 100-10 MG/5ML SYRP 1 tsp by mouth every 4 hours as needed for cough CHERATUSSIN AC 100-10 MG/5ML SYRP 254655 GUAIFENESIN-CODEINE Inactive TERBINAFINE HCL 250 MG TABS 1 qDay TERBINAFINE HCL 250 MG TABS 686088 TERBINAFINE HCL Inactive CHERATUSSIN AC 100-10 MG/5ML SYRP 1 tsp by mouth every 4 hours as needed for cough CHERATUSSIN AC 100-10 MG/5ML SYRP 190487 GUAIFENESIN-CODEINE Inactive ACETAMINOPHEN-CODEINE #3 300-30 MG TABS 1 PO Q 4-6 HRS PRN PAIN ACETAMINOPHEN-CODEINE #3 300-30 MG TABS ACETAMINOPHEN-CODEIN E Inactive CHERATUSSIN AC 100-10 MG/5ML SYRP 1 tsp by mouth every 4 hours as needed for cough CHERATUSSIN AC 100-10 MG/5ML SYRP 746877 GUAIFENESIN-CODEINE Inactive AUGMENTIN 875-125 MG TAB 1 tab by mouth twice daily with food 20 12/03/31 AUGMENTIN 875-125 MG TAB 706584 AMOXICILLIN-POT CLAVULA EFE Inactive CHERATUSSIN AC 100-10 MG/5ML SYRP take one tsp po Q 6hours prn c ough CHERATUSSIN AC 100-10 MG/5ML SYRP 230290 GUAIFENESIN-CO DEINE Inactive PROPRANOLOL HCL 60 MG TABS 1 PO Q D P ROPRANOLOL HCL 60 MG TABS 355833 PROPRANOLOL HCL Inactive TOPAMAX 50 MG TABS take 1 tab po BID for migraines. 12/07/10 TOPAMAX 50 MG TABS 464570 TOPIRAMATE Inactive TOPAMAX 25 MG TABS 1 qHS x 1 week, then 1 BID x 1 week, then 1 qAM and 2 qHS x 1 week, then 2 BID (migraine prevention) TOPAMAX 2 5 MG TABS 112007 TOPIRAMATE Inactive LYRICA 75 MG CAPS TAKE 1 CAPSULE BY MOUTH TWICE DAILY LYRICA 75 MG CAPS PREGABALIN Inactive SYMBICORT 160-4.5 MCG/ACT AERO 2 puffs bid with rinse after 2011 SYMBICORT 160-4.5 MCG/ACT AERO BUDESONIDE-FORMOT SÁNCHEZ FUMARATE Inactive PROMETHAZINE-CODEINE 6.25-10 MG/5ML SYRP 1 tsp by mouth ever y 8 hours prn cough PROMETHAZINE-CODEINE 6.25-10 MG/5ML SYRP 507453 PROMETHAZINE-CODEINE Inactive CYMBALTA 30 MG CPEP 1 cap by mouth daily CYMBALTA 30 MG CPEP 129153 DULOXETINE HCL Inactive PREMARIN 0.625 MG TABS TAKE 1 TAB BY MOUTH DAILY 07/25 PREMARIN 0.625 MG TABS ESTROGENS CONJUGATED Inactive CHERATUSSIN AC 100-10 MG/5ML SYRP 1 tsp by mouth every 4 hours as needed for cough CHERATUSSIN AC 100-10 MG/5ML SYRP 096735 GUAIFENESIN-CODEINE Inactive PROMETHAZINE-CODEINE 6.25-10 MG/5ML SYRP 1 tsp by mout h every 6 hours if needed for cough PROMETHAZINE-CODEINE 6.25-10 MG/5ML SYRP 510446 PROMETHAZINE-CODEINE Inactive CHERATUSSIN AC 100-10 MG/5ML SYRP 1 tsp by mouth every 4 hours as needed for cough CHERATUSSIN AC 100-10 MG/5ML SYRP 377233 GUAIFENESIN-CODEINE Inactive FLUTICASONE PROPIONATE 50 MCG/ACT SUSP 1 to 2 sprays each no stril daily FLUTICASONE PROPIONATE 50 MCG/ACT SUSP 2387758 FLUTICASONE PROPIONATE Inactive PREDNISONE 20 MG ORAL TABS 3 tab PO qd x 2d, 2 tab PO qd x 2d, 1 tab PO qd x 2d, 1/2 tab PO qd x 2d PREDNISONE 20 MG ORAL TABS 486273 PREDNISONE Inactive LEVOFLOXACIN 500 MG ORAL TABS 1 tab PO daily x 10 days LEVOFLOXACIN 500 MG ORAL TABS 357363 LEVOFLOXACIN Inactive CYCLOBENZAPRINE HCL 10 MG TABS 1 tablet by mouth BID prn had cherelle n CYCLOBENZAPRINE HCL 10 MG TABS 594848 CYCLOBENZAPRINE H CL Inactive ZOCOR 40 MG TAB 1 tab by mouth daily ZOCOR 40 M G TAB 064978 SIMVASTATIN Inactive TUSSIONEX PENNKINETIC ER 10-8 MG/5ML [...] empty FLUTICASONE PROPIONATE 50 MCG/ACT SUSP 17 10051 FLUTICASONE PROPIONATE Inactive TUSSIONEX PENNKINETIC ER 10-8 [...] 201 04/09/17 ZITHROMAX Z-REYNA 250 MG TABS 7409799 AZITHROMYCIN Inac tive CEFDINIR 300 MG CAPS [...] q days 2-5 ZITHROMAX 250 MG TAB 1229837 AZITHROMYCIN Inactive CEFDINIR 300 MG CAPS by mouth twice a day CEFDINIR 300 MG CAPS 20020704 CEFDINIR Inactive PREDNISONE 20 MG TAB 2 tabs daily for 3 days, 1 t ab daily for 3 days, 1/2 tab daily for 2 days PREDNISONE 20 MG TAB 285145 PREDNISON E Inactive AVELOX 400 MG TABS 1 tab by mouth daily A VELOX 400 MG TABS 853242 MOXIFLOXACIN HCL Inactive AVELOX 400 MG TABS 1 tab by mouth daily A VELOX 400 MG TABS 073912 MOXIFLOXACIN HCL Inactive PREDNISONE 20 MG TAB Take 3 tabs daily for 3 days , 2 tabs daily for 3 days, 1 tab daily for 3 days, 1/2 tab daily for 3 days PREDNISONE 20 MG TAB 547247 PREDNISONE Inactive LEVAQUIN 500 MG TABS take one po QD LEVAQUIN 50 0 MG TABS 014753 LEVOFLOXACIN Inactive AZITHROMYCIN 250 MG TABS 2 po qd x 1 day, then 1 po qd x 4 days AZITHROMYCIN 250 MG TABS 0737511 AZITHROMYCIN Inactiv e MEDROL (REYNA) 4 MG TABS 6 tabs on day 1, 5 tabs on d ay 2, 4 tabs on day 3, 3 tabs on day 4, 2 tabs on day 5, 1 tab on day 6 MEDROL (REYNA) 4 MG TABS 945565 METHYLPREDNISOLONE Inactive CHERATUSSIN AC 100-10 MG/5ML SYRP 5ml po q6hr PRN Cough CHERATUSSIN AC 100-10 MG/5ML SYRP 841579 GUAIFENESIN-CODEINE Inacti ve TRIAMCINOLONE ACETONIDE 0.1 % CREA apply three times daily prn r beatrice TRIAMCINOLONE ACETONIDE 0.1 % CREA 4151087 TRIAMCINOLONE ACETONIDE Inactive AZITHROMYCIN 250 MG TABS 2 po qd x 1 day, then 1 po qd x 4 days AZITHROMYCIN 250 MG TABS 8069663 AZITHROMYCIN Inactiv e MEDROL (REYNA) 4 MG TABS 6 pills x 1 day, then 5 pill s x 1 day then 4 pills x 1 day, then 3 pills x 1 day, then 2 pills x 1 day, then 1 pill x 1 day, then stop MEDROL (REYNA) 4 MG TABS 732563 METHYLPREDNISOLONE Inactive AMOXICILLIN 500 MG CAP 1 tab by mouth 3 times daily x 10 days 20 13/03/08 AMOXICILLIN 500 MG CAP 715305 AMOXICILLIN Inactive AMOXICILLIN 500 MG CAP 1 tab by mouth 3 times daily x 10 days 20 14/04/28 AMOXICILLIN 500 MG CAP 849248 AMOXICILLIN Inactive ZITHROMAX 250 MG TAB 2 po today, then 1 po q days 2-5 ZITHROMAX 250 MG TAB 4821133 AZITHROMYCIN Inactive AUGMENTIN 875-125 MG TAB 1 po BID x 10 days AUGMENTIN 875- 125 MG TAB 528223 AMOXICILLIN-POT CLAVULANATE Inactive ZITHROMAX Z-REYNA 250 MG TABS 2 today, then 1 daily for 4 days 201 08/07/20 ZITHROMAX Z-REYNA 250 MG TABS 0128749 AZITHROMYCIN Inac tive ZITHROMAX 250 MG TAB 2 po today, then 1 po q days 2-5 ZITHROMAX 250 MG TAB 7446967 AZITHROMYCIN Inactive ZITHROMAX Z-REYNA 250 MG TABS 2 today, then 1 daily for 4 days 201 08/30/03 ZITHROMAX Z-REYNA 250 MG TABS 2576230 AZITHROMYCIN Inac tive CEFDINIR 300 MG CAPS 1 po BID x 10 days C EFDINIR 300 MG CAPS 477059 CEFDINIR Inactive ZITHROMAX 250 MG TAB 2 po today, then 1 po q days 2-5 ZITHROMAX 250 MG TAB 7796668 AZITHROMYCIN Inactive LEVAQUIN 500 MG TAB 1 tablet by mouth daily LEVAQUIN 500 MG TAB 609529 LEVOFLOXACIN Inactive SINGULAIR 10 MG TABS 1 po qday for allergies 2 SINGULAIR 10 MG TABS 20010504 MONTELUKAST SODIUM Inactive AMOXICILLIN 500 MG CAPS 2 po BID x 10 days AMOXICILLIN 500 MG CAPS 935251 AMOXICILLIN Inactive PREDNISONE 20 MG TAB 2 tabs daily for 3 days, 1 t ab daily for 3 days, 1/2 tab daily for 2 days PREDNISONE 20 MG TAB 229116 PREDNISON E Inactive ZITHROMAX Z-REYNA 250 MG TABS 2 today, then 1 daily for 4 days 201 09/29/14 ZITHROMAX Z-REYNA 250 MG TABS 2458595 AZITHROMYCIN Inac tive PREDNISONE 20 MG TAB 2 tabs daily for 3 days, 1 t ab daily for 3 days, 1/2 tab daily for 2 days PREDNISONE 20 MG TAB 101407 PREDNISON E Inactive Vital Signs Date Name [...] Negative Encounters Code Encounter Date Provider Facility CPT-95927 Level 3 Est. Patient 12:17:50 CDT Hugo Restrepo MD [facility] CPT-76184 Level 3 Est. Patient 13:42:38 CDT Elise Guerrero [facility] CPT-11816 Level 3 Est. Patient 13:23:51 CDT Diya cobina [facility] CPT-73536 Level 3 Est. Patient 14:22:19 WEBMETHODS CONSULTANT Diya cobian [facility] CPT-42739 Level 3 Est. Patient 10:11:46 CDT Carlton rich MD [facility] CPT-05800 Level 3 Est. Patient 17:29:43 CDT Italo [facility] CPT-11614 Level 3 Est. Patient 11:58:06 CDT Italo [facility] CPT-90507 Level 4 Est. Patient 14:36:51 CDT Carlton rich MD [facility]-27420 Level 3 Est. Patient 18:16:00 WEBMETHODS CONSULTANT Blaine Freeman [facility]-55207 Level 3 Est. Patient 09:45:49 WEBMETHODS CONSULTANT Carlton rich MD [facility]-66947 Level 3 Est. Patient 13:19:20 CDT Carlton rich MD [facility]-00192 Level 3 Est. Patient 13:06:43 CDT Ridge tam DO [facility]-96098 Level 3 Est. Patient 10:03:07 CDT Perez Mora MD [facility]-25000 Level 3 Est. Patient 19:50:35 WEBMETHODS CONSULTANT Carlton rich MD [facility]-64962 Level 4 Est. Patient 18:05:01 WEBMETHODS CONSULTANT Carlton rich MD [facility] CPT-49718 Level 3 Est. Patient 10:45:55 WEBMETHODS CONSULTANT Hugo Restrepo MD [facility]-17254 Level 3 Est. Patient 14:12:49 CDT Griffin lincoln [facility]-19767 Level 3 Est. Patient 17:37:24 CDT Carlton rich MD [facility]-08882 Level 3 Est. Patient 16:51:54 CDT Carlton rich MD [facility]-05956 Level 3 Est. Patient 12:18:11 CDT Hugo Restrepo MD [facility]-90668 Level 3 Est. Patient 11:30:25 CDT Marcy crisostomo MD, PhD [facility]-42699 Level 3 Est. Patient 12:00:47 WEBMETHODS CONSULTANT Carlton rich MD [facility] CPT-95146 Level 3 Est. Patient 16:31:06 WEBMETHODS CONSULTANT Carlton rich MD [facility] CPT-24086 Level 3 Est. Patient 16:23:24 WEBMETHODS CONSULTANT Ridge tam [facility] CPT-40559 Level 3 Est. Patient 12:34:12 CDT Carlton rich MD [facility] CPT-23119 Level 2 Est. Patient 15:43:33 CDT Robi armstrong MD [facility] CPT-50096 Level 4 Est. Patient 14:04:44 CDT Carlton rich MD [facility] CPT-07246 Level 3 Est. Patient 05:47:59 CDT Ridge tam [facility] CPT-32647 Level 3 Est. Patient 13:12:53 WEBMETHODS CONSULTANT Carlton rich MD [facility] CPT-37804 Level 3 Est. Patient 14:26:53 CDT Hugo Restrepo MD [facility] Procedures Code Procedure Name Date Entry Date Standard Desc ription CPT-J0696 Rocephin 1gm Inj Solr 14:32:13 CDT CPT-J1020 Depo Medrol 60 mg (Methyl Prednisolone A cetate) 14:32:13 CDT CPT-J1100 Decadron 6mg (Dexamethasone) 14:32:13 CDT 2 CPT-92474 Hip bilat min 2V w AP pelvis 13:16:20 CDT 2 CPT-20702 Pelvis only 13:07:33 CDT CPT-11601 Spec Collection and Handling Fee 11:25:12 C DT CPT-02870 Fluzone Quadrivalent Intramuscular Suspe nsion 0.5 ML 14:31:55 CDT CPT-13180 Abx/Therapy Injection 13:28:47 WEBMETHODS CONSULTANT CPT-J2930 Solu Medrol 125 mg (Methyl Prednisolone Sodium Succinate) 12:00:47 WEBMETHODS CONSULTANT CPT-06790 Venipuncture Draw Fee 11:33:31 CDT CPT-81250 EKG Trac and Interp 11:21:09 CDT CPT-58495 Chest 2V Frontal and Lat 11:21:09 CDT 12/15 CPT-06066 Venipuncture Draw Fee 08:02:34 CDT CPT-52449 Chest 2V Frontal and Lat 05:47:59 CDT 06/05
--- OUTSIDE RECORDS SUMMARY | 2019-10-08 08:30 | XMS REPORT | Clinical Summary ---
Author Author Caitlin, Juliana Martinez Organization [facility] Address Unknown Phone Unavailable Allergies, [...] not elsewhere classified Menopause 627.2 Active Carlton uH MD Symptomatic menopausal or female climacteric states [...] sites Sinusitis 473.9 Active Diya De Guzman [employer] Unspecified sinusitis (chronic) Bronchitis-Acute 466.0 Active Carlton Hu MD Acute bronchitis URI - acute 465.9 Active Elise Whitmore [employer] Acute upper respiratory infections of unspecified site [...] po qday for allergies 2 MONTELUKAST SODIUM 12463328940 No Longer Active Carlton Hu MD Acti ve LEVAQUIN 500 MG TAB 1 tablet by mouth daily LEV OFLOXACIN 18746608912 No Longer Active Carlton Hu MD Active FLUTICASONE PROPIONATE 50 MCG/ACT SUSP 2 sprays each n ostril daily for 2 weeks, then 1 spray each nostril daily. FLUTICASONE PRO PIONATE 96534817178 Active Elise Whitmore APRN Active ZITHROMAX 250 MG TAB 2 po today, then 1 po q days 2-5 AZITHROMYCIN 69512323092 No Longer Active Elise Whitmore APRN Acti ve XANAX 0.5 MG TABS one tablet by mouth daily prn anxiety ALPRAZOLAM 42980886043 Active Elise Whitmore APRN Active CYMBALTA 30 MG CPEP 1 cap by mouth daily for depression DULOXETINE HCL 68386704360 Active Carlton Hu MD Active CEFDINIR 300 MG CAPS 1 po BID x 10 days CEFDINI R 52747739470 No Longer Active Carlton Hu MD Active ZOCOR 40 MG TAB 1 tab by mouth daily SIMVASTATI N 06004756449 No Longer Active Carlton Hu MD Active CYCLOBENZAPRINE HCL 10 MG TABS 1 tablet by mouth BID prn had cherelle n CYCLOBENZAPRINE HCL 41769073094 No Longer Active Carlton Hu MD Active LEVOFLOXACIN 500 MG ORAL TABS 1 tab PO daily x 10 days LEVOFLOXACIN 17525631064 No Longer Active Carlton Hu MD Acti ve PREDNISONE 20 MG ORAL TABS 3 tab PO qd x 2d, 2 tab PO qd x 2d, 1 tab PO qd x 2d, 1/2 tab PO qd x 2d PREDNISONE 40078307505 No Longer Active Carlton Hu MD Active TUSSIONEX PENNKINETIC ER 10-8 MG/5ML ORAL LQCR 5 mL PO q 12 hrs PRN cough HYDROCOD POLST-CHLORPHEN POLST 53169768450 Active Carlton Hu MD Active FLUTICASONE PROPIONATE 50 MCG/ACT SUSP 1 to 2 sprays each no stril daily FLUTICASONE PROPIONATE 34247915744 No Longer Active T jaz HERNANDEZ Active CHERATUSSIN AC 100-10 MG/5ML SYRP 1 tsp by mouth every 4 hours as needed for cough GUAIFENESIN-CODEINE 08137696362 No Longer Activ e Blaine HERNANDEZ Active PROMETHAZINE-CODEINE 6.25-10 MG/5ML SYRP 1 tsp by mout h every 6 hours if needed for cough PROMETHAZINE-CODEINE 95585048629 No Long er Active Blaine HERNANDEZ Active CHERATUSSIN AC 100-10 MG/5ML SYRP 1 tsp by mouth every 4 hours as needed for cough GUAIFENESIN-CODEINE 23182898878 No Longer Activ e Blaine HERNANDEZ Active ZITHROMAX Z-REYNA 250 MG TABS 2 today, then 1 daily for 4 days 201 08/30/03 AZITHROMYCIN 22762370892 No Longer Active Columba Raida Act nael ZITHROMAX 250 MG TAB 2 po today, then 1 po q days 2-5 AZITHROMYCIN 36291916925 No Longer Active Carlton Hu MD Acti ve ZITHROMAX Z-REYNA 250 MG TABS 2 today, then 1 daily for 4 days 201 08/07/20 AZITHROMYCIN 14028670959 No Longer Active Columba Raida Act nale AUGMENTIN 875-125 MG TAB 1 po BID x 10 days AMOXICILLIN- POT CLAVULANATE 14836442424 No Longer Active Diya De Guzman APRN Active ZITHROMAX 250 MG TAB 2 po today, then 1 po q days 2-5 AZITHROMYCIN 60881582434 No Longer Active Carlton Hu MD Acti ve TRAMADOL HCL 50 MG TABS 1 po tid with ES Tylenol TRAMADOL HCL 48241779578 Active Carlton Hu MD Active PREMARIN 0.625 MG TABS TAKE 1 TAB BY MOUTH DAILY 07/25 ESTROGENS CONJUGATED 07790977251 No Longer Active Ridge Bess DO Active CYMBALTA 30 MG CPEP 1 cap by mouth daily DULOXE SNEHA HCL 05652337168 No Longer Active Ridge Bess DO Active AMOXICILLIN 500 MG CAP 1 tab by mouth 3 times daily x 10 days 14/04/28 AMOXICILLIN 98282603645 No Longer Active Carlton Hu MD Active AMOXICILLIN 500 MG CAP 1 tab by mouth 3 times daily x 10 days 20 13/03/08 AMOXICILLIN 60728450518 No Longer Active Carlton Hu MD Active PROMETHAZINE-CODEINE 6.25-10 MG/5ML SYRP 1 tsp by mouth ever y 8 hours prn cough PROMETHAZINE-CODEINE 11162664595 No Longer Active Robert Hu MD Active MEDROL (REYNA) 4 MG TABS 6 pills x 1 day, then 5 pill s x 1 day then 4 pills x 1 day, then 3 pills x 1 day, then 2 pills x 1 day, then 1 pill x 1 day, then stop METHYLPREDNISOLONE 27368919474 No Longer Active Parris Mora MD Active AZITHROMYCIN 250 MG TABS 2 po qd x 1 day, then 1 po qd x 4 days AZITHROMYCIN 23667303432 No Longer Active Perez Mora MD Active SYMBICORT 160-4.5 MCG/ACT AERO 2 puffs bid with rinse after 2011 BUDESONIDE-FORMOTEROL FUMARATE 09850109264 No Longer Active Perez Mora MD Active LYRICA 75 MG CAPS TAKE 1 CAPSULE BY MOUTH TWICE DAILY 2013 PREGABALIN 61691828678 No Longer Active Carlton Hu MD Active LYRICA 100 MG CAPS Take 1 tab po BID for fibromyalgia PREGABALIN 81453360928 Active Elise Whitmore APRN Active TOPAMAX 25 MG TABS 1 qHS x 1 week, then 1 BID x 1 week, then 1 qAM and 2 qHS x 1 week, then 2 BID (migraine prevention) TOPIRAMAT E 80744514295 No Longer Active Jerica AGUILARA Active TOPAMAX 50 MG TABS take 1 tab po BID for migraines. 12/07/10 TOPIRAMATE 23141616417 No Longer Active Jerica Gomerissaer RMA Ac tive TOPAMAX 100 MG TABS Take 1 tablet po bid TOPIRAMATE 4999 6813713 Active Carlton Hu MD Active TRIAMCINOLONE ACETONIDE 0.1 % CREA apply three times daily prn r beatrice TRIAMCINOLONE ACETONIDE 43887912580 No Longer Active Carlton Hu MD Active PAXIL 40 MG TAB take 1 tab po qday for depression PAROXETINE HCL 25746154838 Active Elise Whitmore APRN Active CHERATUSSIN AC 100-10 MG/5ML SYRP 5ml po q6hr PRN Cough GUAIFENESIN-CODEINE 82079740299 No Longer Active Carlton Hu MD Active MEDROL (REYNA) 4 MG TABS 6 tabs on day 1, 5 tabs on d ay 2, 4 tabs on day 3, 3 tabs on day 4, 2 tabs on day 5, 1 tab on day 6 METHYLPREDNISOLONE 08239696471 No Longer Active Perez Mora MD Active AZITHROMYCIN 250 MG TABS 2 po qd x 1 day, then 1 po qd x 4 days AZITHROMYCIN 28354666841 No Longer Active Perez Mora MD Active PROPRANOLOL HCL 60 MG TABS 1 PO Q D PROPRANOL OL HCL 30373753283 No Longer Active Perez Mora MD Active CHERATUSSIN AC 100-10 MG/5ML SYRP take one tsp po Q 6hours prn c ough GUAIFENESIN-CODEINE 26449178454 No Longer Active Perez Means Active AUGMENTIN 875-125 MG TAB 1 tab by mouth twice daily with food 20 12/03/31 AMOXICILLIN-POT CLAVULANATE 44783777393 No Longer Active Chanel Mora MD Active CHERATUSSIN AC 100-10 MG/5ML SYRP 1 tsp by mouth every 4 hours as needed for cough GUAIFENESIN-CODEINE 22706486074 No Longer Activ e Hugo Restrepo MD Active ACETAMINOPHEN-CODEINE #3 300-30 MG TABS 1 PO Q 4-6 HRS PRN PAIN ACETAMINOPHEN-CODEINE 65896134858 No Longer Active Hugo Restrepo MD Active LEVAQUIN 500 MG TABS take one po QD LEVOFLOXACI N 14590010104 No Longer Active Griffin HERNANDEZ Active PREDNISONE 20 MG TAB Take 3 tabs daily for 3 days , 2 tabs daily for 3 days, 1 tab daily for 3 days, 1/2 tab daily for 3 days P REDNISONE 88418188296 No Longer Active Carlton Hu MD Active AVELOX 400 MG TABS 1 tab by mouth daily MOXIFLO XACIN HCL 09533477627 No Longer Active Carlton Hu MD Active CHERATUSSIN AC 100-10 MG/5ML SYRP 1 tsp by mouth every 4 hours as needed for cough GUAIFENESIN-CODEINE 98654019368 No Longer Activ e Hugo Restrepo MD Active AVELOX 400 MG TABS 1 tab by mouth daily MOXIFLO XACIN HCL 41430846020 No Longer Active Marcy De La Rosa MD PhD Active TERBINAFINE HCL 250 MG TABS 1 qDay TERBINAF INE HCL 18456613869 No Longer Active Marcy De La Rosa MD PhD Active CHERATUSSIN AC 100-10 MG/5ML SYRP 1 tsp by mouth every 4 hours as needed for cough GUAIFENESIN-CODEINE 37142602054 No Longer Activ e Marcy De La Rosa MD PhD Active AVELOX 400 MG TABS 1 tab by mouth daily MOXIFLO XACIN HCL 12818978526 No Longer Active Marcy De La Rosa MD PhD Active HYDROCODONE-ACETAMINOPHEN 5-325 MG TABS 1 po q 6hr PRN cough 201 05/09/16 HYDROCODONE-ACETAMINOPHEN 60469347910 No Longer Active Marcy De La Rosa MD PhD Active PREDNISONE 20 MG TAB 2 tabs daily for 3 days, 1 t ab daily for 3 days, 1/2 tab daily for 2 days PREDNISONE 62459793898 No Longer Active Carlton Hu MD Active CEFDINIR 300 MG CAPS by mouth twice a day CEFDI ODILIA 95239561680 No Longer Active Carlton Hu MD Active HYDROCHLOROTHIAZIDE 25 MG TABS 1 TAB PO DAILY H YDROCHLOROTHIAZIDE 08399694659 Active Carlton Hu MD Active ACETAMINOPHEN-CODEINE #3 300-30 MG TABS 1 tablet po q 4-6hrs prn pain ACETAMINOPHEN-CODEINE 44582484324 No Longer Active Ridge Bess DO Active ZITHROMAX 250 MG TAB 2 po today, then 1 po q days 2-5 AZITHROMYCIN 87617229102 No Longer Active Carlton Hu MD Acti ve CHERATUSSIN AC 100-10 MG/5ML SYRP take 1 tsp po q4-6 hours prn c ough GUAIFENESIN-CODEINE 49246524196 No Longer Active Carlton Hu MD Active ACETAMINOPHEN-CODEINE #3 300-30 MG TABS 1 PO Q 4-6 HR PRN PAIN 2 ACETAMINOPHEN-CODEINE 71044741603 No Longer Active Carlton rich MD Active LORTAB 7.5-500 MG/15ML ELIX 7.5 ml po q 4 hour prn cough HYDROCODONE-ACETAMINOPHEN 93679995927 No Longer Active Carlton Hu MD Active PREDNISONE 20 MG TAB 1 po bid 3 days, then 1 po q day 3 days 201 05/03/07 PREDNISONE 70770288781 No Longer Active Carlton Hu MD Active ELMIRON 100 MG CAPS 2 tablets in the am and 1 tablet at hs PENTOSAN POLYSULFATE SODIUM 70848004433 Active Carlton Hu MD Ac tive CEFDINIR 300 MG CAPS by mouth twice a day CEFDI ODILIA 13618320221 No Longer Active Carlton Hu MD Active CEFDINIR 300 MG CAPS by mouth twice a day CEFDI ODILIA 85787841268 No Longer Active Carlton Hu MD Active CEFDINIR 300 MG CAPS by mouth twice a day CEFDI ODILIA 37228178052 No Longer Active Carlton Hu MD Active TESSALON PERLES 100 MG CAP 1 tablet by mouth 3 times daily a s needed for cough BENZONATATE 23349642552 No Longer Active Carlton bustamante MD Active CEFDINIR 300 MG CAPS by mouth twice a day CEFDI ODILIA 53111350158 No Longer Active Carlton Hu MD Active ZITHROMAX Z-REYNA 250 MG TABS 2 today, then 1 daily for 4 days 201 04/09/17 AZITHROMYCIN 33169356122 No Longer Active Hugo Restrepo MD Active TESSALON PERLES 100 MG CAP 1 tablet by mouth 3 times daily a s needed for cough TESSALON PERLES 100 MG CAP 523014 BENZONATATE I nactive PREDNISONE 20 MG TAB 1 po bid 3 days, then 1 po q day 3 days 201 05/03/07 PREDNISONE 20 MG TAB 376866 PREDNISONE Inactive LORTAB 7.5-500 MG/15ML ELIX 7.5 ml po q 4 hour prn cough LORTAB 7.5-500 MG/15ML ELIX HYDROCODONE-ACETAMINOPHEN Inacti ve ACETAMINOPHEN-CODEINE #3 300-30 MG TABS 1 PO Q 4-6 HR PRN PAIN 2 ACETAMINOPHEN-CODEINE #3 300-30 MG TABS 399547 ACETAMIN OPHEN-CODEINE Inactive CHERATUSSIN AC 100-10 MG/5ML SYRP take 1 tsp po q4-6 hours prn c ough CHERATUSSIN AC 100-10 MG/5ML SYRP 655318 GUAIFENESIN-CO DEINE Inactive ACETAMINOPHEN-CODEINE #3 300-30 MG TABS 1 tablet po q 4-6hrs prn pain ACETAMINOPHEN-CODEINE #3 300-30 MG TABS 556388 ACETAMIN OPHEN-CODEINE Inactive HYDROCODONE-ACETAMINOPHEN 5-325 MG TABS 1 po q 6hr PRN cough 201 05/09/16 HYDROCODONE-ACETAMINOPHEN 5-325 MG TABS 564826 HYDROCODONE-ACETAMINOPHEN Inactive AVELOX 400 MG TABS 1 tab by mouth daily A VELOX 400 MG TABS 628177 MOXIFLOXACIN HCL Inactive CHERATUSSIN AC 100-10 MG/5ML SYRP 1 tsp by mouth every 4 hours as needed for cough CHERATUSSIN AC 100-10 MG/5ML SYRP 894314 GUAIFENESIN-CODEINE Inactive TERBINAFINE HCL 250 MG TABS 1 qDay TERBINAFINE HCL 250 MG TABS 347052 TERBINAFINE HCL Inactive CHERATUSSIN AC 100-10 MG/5ML SYRP 1 tsp by mouth every 4 hours as needed for cough CHERATUSSIN AC 100-10 MG/5ML SYRP 359798 GUAIFENESIN-CODEINE Inactive ACETAMINOPHEN-CODEINE #3 300-30 MG TABS 1 PO Q 4-6 HRS PRN PAIN ACETAMINOPHEN-CODEINE #3 300-30 MG TABS 139277 ACETAMINOPHEN-CODEIN E Inactive CHERATUSSIN AC 100-10 MG/5ML SYRP 1 tsp by mouth every 4 hours as needed for cough CHERATUSSIN AC 100-10 MG/5ML SYRP 688549 GUAIFENESIN-CODEINE Inactive AUGMENTIN 875-125 MG TAB 1 tab by mouth twice daily with food 20 12/03/31 AUGMENTIN 875-125 MG TAB 195384 AMOXICILLIN-POT CLAVULA EFE Inactive CHERATUSSIN AC 100-10 MG/5ML SYRP take one tsp po Q 6hours prn c ough CHERATUSSIN AC 100-10 MG/5ML SYRP 994381 GUAIFENESIN-CO DEINE Inactive PROPRANOLOL HCL 60 MG TABS 1 PO Q D P ROPRANOLOL HCL 60 MG TABS 173821 PROPRANOLOL HCL Inactive TOPAMAX 50 MG TABS take 1 tab po BID for migraines. 12/07/10 TOPAMAX 50 MG TABS 950074 TOPIRAMATE Inactive TOPAMAX 25 MG TABS 1 qHS x 1 week, then 1 BID x 1 week, then 1 qAM and 2 qHS x 1 week, then 2 BID (migraine prevention) TOPAMAX 2 5 MG TABS 328480 TOPIRAMATE Inactive LYRICA 75 MG CAPS TAKE 1 CAPSULE BY MOUTH TWICE DAILY LYRICA 75 MG CAPS PREGABALIN Inactive SYMBICORT 160-4.5 MCG/ACT AERO 2 puffs bid with rinse after 2011 SYMBICORT 160-4.5 MCG/ACT AERO BUDESONIDE-FORMOT SÁNCHEZ FUMARATE Inactive PROMETHAZINE-CODEINE 6.25-10 MG/5ML SYRP 1 tsp by mouth ever y 8 hours prn cough PROMETHAZINE-CODEINE 6.25-10 MG/5ML SYRP 708173 PROMETHAZINE-CODEINE Inactive CYMBALTA 30 MG CPEP 1 cap by mouth daily CYMBALTA 30 MG CPEP 189268 DULOXETINE HCL Inactive PREMARIN 0.625 MG TABS TAKE 1 TAB BY MOUTH DAILY 07/25 PREMARIN 0.625 MG TABS ESTROGENS CONJUGATED Inactive CHERATUSSIN AC 100-10 MG/5ML SYRP 1 tsp by mouth every 4 hours as needed for cough CHERATUSSIN AC 100-10 MG/5ML SYRP 185733 GUAIFENESIN-CODEINE Inactive PROMETHAZINE-CODEINE 6.25-10 MG/5ML SYRP 1 tsp by mout h every 6 hours if needed for cough PROMETHAZINE-CODEINE 6.25-10 MG/5ML SYRP 460387 PROMETHAZINE-CODEINE Inactive CHERATUSSIN AC 100-10 MG/5ML SYRP 1 tsp by mouth every 4 hours as needed for cough CHERATUSSIN AC 100-10 MG/5ML SYRP 195656 GUAIFENESIN-CODEINE Inactive FLUTICASONE PROPIONATE 50 MCG/ACT SUSP 1 to 2 sprays each no stril daily FLUTICASONE PROPIONATE 50 MCG/ACT SUSP 9654553 FLUTICASONE PROPIONATE Inactive PREDNISONE 20 MG ORAL TABS 3 tab PO qd x 2d, 2 tab PO qd x 2d, 1 tab PO qd x 2d, 1/2 tab PO qd x 2d PREDNISONE 20 MG ORAL TABS 628275 PREDNISONE Inactive LEVOFLOXACIN 500 MG ORAL TABS 1 tab PO daily x 10 days LEVOFLOXACIN 500 MG ORAL TABS 874351 LEVOFLOXACIN Inactive CYCLOBENZAPRINE HCL 10 MG TABS 1 tablet by mouth BID prn had cherelle n CYCLOBENZAPRINE HCL 10 MG TABS 795549 CYCLOBENZAPRINE H CL Inactive ZOCOR 40 MG TAB 1 tab by mouth daily ZOCOR 40 M G TAB 435659 SIMVASTATIN Inactive ZITHROMAX Z-REYNA 250 MG TABS 2 today, then 1 daily for 4 days 201 04/09/17 ZITHROMAX Z-REYNA 250 MG TABS 9510436 AZITHROMYCIN Inac tive CEFDINIR 300 MG CAPS [...] q days 2-5 ZITHROMAX 250 MG TAB 7530028 AZITHROMYCIN Inactive CEFDINIR 300 MG CAPS by mouth twice a day CEFDINIR 300 MG CAPS 20020704 CEFDINIR Inactive PREDNISONE 20 MG TAB 2 tabs daily for 3 days, 1 t ab daily for 3 days, 1/2 tab daily for 2 days PREDNISONE 20 MG TAB 677011 PREDNISON E Inactive AVELOX 400 MG TABS 1 tab by mouth daily A VELOX 400 MG TABS 725984 MOXIFLOXACIN HCL Inactive AVELOX 400 MG TABS 1 tab by mouth daily A VELOX 400 MG TABS 348362 MOXIFLOXACIN HCL Inactive PREDNISONE 20 MG TAB Take 3 tabs daily for 3 days , 2 tabs daily for 3 days, 1 tab daily for 3 days, 1/2 tab daily for 3 days PREDNISONE 20 MG TAB 166971 PREDNISONE Inactive LEVAQUIN 500 MG TABS take one po QD LEVAQUIN 50 0 MG TABS 815579 LEVOFLOXACIN Inactive AZITHROMYCIN 250 MG TABS 2 po qd x 1 day, then 1 po qd x 4 days AZITHROMYCIN 250 MG TABS 3641514 AZITHROMYCIN Inactiv e MEDROL (REYNA) 4 MG TABS 6 tabs on day 1, 5 tabs on d ay 2, 4 tabs on day 3, 3 tabs on day 4, 2 tabs on day 5, 1 tab on day 6 MEDROL (REYNA) 4 MG TABS 331386 METHYLPREDNISOLONE Inactive CHERATUSSIN AC 100-10 MG/5ML SYRP 5ml po q6hr PRN Cough CHERATUSSIN AC 100-10 MG/5ML SYRP 278785 GUAIFENESIN-CODEINE Inacti ve TRIAMCINOLONE ACETONIDE 0.1 % CREA apply three times daily prn r beatrice TRIAMCINOLONE ACETONIDE 0.1 % CREA 6837574 TRIAMCINOLONE ACETONIDE Inactive AZITHROMYCIN 250 MG TABS 2 po qd x 1 day, then 1 po qd x 4 days AZITHROMYCIN 250 MG TABS 9083589 AZITHROMYCIN Inactiv e MEDROL (REYNA) 4 MG TABS 6 pills x 1 day, then 5 pill s x 1 day then 4 pills x 1 day, then 3 pills x 1 day, then 2 pills x 1 day, then 1 pill x 1 day, then stop MEDROL (REYNA) 4 MG TABS 059295 METHYLPREDNISOLONE Inactive AMOXICILLIN 500 MG CAP 1 tab by mouth 3 times daily x 10 days 20 13/03/08 AMOXICILLIN 500 MG CAP 683699 AMOXICILLIN Inactive AMOXICILLIN 500 MG CAP 1 tab by mouth 3 times daily x 10 days 20 14/04/28 AMOXICILLIN 500 MG CAP 079122 AMOXICILLIN Inactive ZITHROMAX 250 MG TAB 2 po today, then 1 po q days 2-5 ZITHROMAX 250 MG TAB 2291061 AZITHROMYCIN Inactive AUGMENTIN 875-125 MG TAB 1 po BID x 10 days AUGMENTIN 875- 125 MG TAB 550968 AMOXICILLIN-POT CLAVULANATE Inactive ZITHROMAX Z-REYNA 250 MG TABS 2 today, then 1 daily for 4 days 201 08/07/20 ZITHROMAX Z-REYNA 250 MG TABS 0439798 AZITHROMYCIN Inac tive ZITHROMAX 250 MG TAB 2 po today, then 1 po q days 2-5 ZITHROMAX 250 MG TAB 4289050 AZITHROMYCIN Inactive ZITHROMAX Z-REYNA 250 MG TABS 2 today, then 1 daily for 4 days 201 08/30/03 ZITHROMAX Z-REYNA 250 MG TABS 1669268 AZITHROMYCIN Inac tive CEFDINIR 300 MG CAPS 1 po BID x 10 days C EFDINIR 300 MG CAPS 920969 CEFDINIR Inactive ZITHROMAX 250 MG TAB 2 po today, then 1 po q days 2-5 ZITHROMAX 250 MG TAB 0836297 AZITHROMYCIN Inactive LEVAQUIN 500 MG TAB 1 tablet by mouth daily LEVAQUIN 500 MG TAB 945781 LEVOFLOXACIN Inactive SINGULAIR 10 MG TABS 1 po qday for allergies 2 SINGULAIR 10 MG TABS 831274 MONTELUKAST SODIUM Inactive Vital Signs Date Name [...] - 3141-9 139.5 [lb_av] Weigh t Measured Encounters Code Encounter Date Provider Facility CPT-96520 Level 3 Est. Patient 10:11:46 CDT Carlton rich MD [facility] CPT-63488 Level 3 Est. Patient 17:29:43 CDT EliseJavier [employer] [facility] CPT-47998 Level 3 Est. Patient 11:58:[address] [facility] [place] CPT-57276 Level 4 Est. Patient 14:36:51 CDT Carlton rich MD [facility] CPT-33656 Level 3 Est. Patient 18:16:00 FIRE OFFICER Blaine HERNANDEZ [facility] CPT-37896 Level 3 Est. Patient 09:45:49 FIRE OFFICER Carlton rich MD [facility] CPT-29938 Level 3 Est. Patient 13:19:20 CDT Carlton rich MD [facility] CPT-10578 Level 3 Est. Patient 13:06:43 CDT Ridge tam DO [facility] CPT-06534 Level 3 Est. Patient 10:03:07 CDT Perez Mora MD [facility] CPT-52463 Level 3 Est. Patient 19:50:35 FIRE OFFICER Carlton rich MD [facility] CPT-57419 Level 4 Est. Patient 18:05:01 FIRE OFFICER Carlton rich MD [facility] CPT-03091 Level 3 Est. Patient 10:45:55 FIRE OFFICER Hugo Restrepo MD [facility] CPT-22767 Level 3 Est. Patient 14:12:49 CDT Griffin HERNANDEZ [facility] CPT-34048 Level 3 Est. Patient 17:37:24 CDT Carlton rich MD [facility]-83634 Level 3 Est. Patient 16:51:54 CDT Carlton rich MD [facility] CPT-92389 Level 3 Est. Patient 12:18:11 CDT Hugo Restrepo MD [facility] CPT-69130 Level 3 Est. Patient 11:30:25 CDT Marcy crisostomo MD PhD [facility]-54455 Level 3 Est. Patient 12:00:47 FIRE OFFICER Carlton rich MD [facility] CPT-29215 Level 3 Est. Patient 16:31:06 FIRE OFFICER Carlton rich MD [facility] CPT-21759 Level 3 Est. Patient 16:23:24 FIRE OFFICER Ridge tam DO [facility] CPT-22286 Level 3 Est. Patient 12:34:12 CDT Carlton rich MD [facility] CPT-18439 Level 2 Est. Patient 15:43:33 CDT Robi armstrong MD [facility] CPT-49746 Level 4 Est. Patient 14:04:44 CDT Carlton rich MD [facility] CPT-23264 Level 3 Est. Patient 05:47:59 CDT Ridge tam DO [facility] CPT-66777 Level 3 Est. Patient 13:12:53 FIRE OFFICER Carlton rich MD [facility] CPT-92881 Level 3 Est. Patient 14:26:53 CDT Hugo Restrepo MD [facility] Procedures Code Procedure Name Date Entry Date Standard Desc ription CPT-J0696 Rocephin 1gm Inj Solr 14:32:13 CDT CPT-J1020 Depo Medrol 60 mg (Methyl Prednisolone A cetate) 14:32:13 CDT CPT-J1100 Decadron 6mg (Dexamethasone) 14:32:13 CDT 2 CPT-14442 Hip bilat min 2V w AP pelvis 13:16:20 CDT 2 CPT-55079 Pelvis only 13:07:33 CDT CPT-57358 Spec Collection and Handling Fee 11:25:12 C DT CPT-17970 Fluzone Quadrivalent Intramuscular Suspe nsion 0.5 ML 14:31:55 CDT CPT-50349 Abx/Therapy Injection 13:28:47 FIRE OFFICER CPT-J2930 Solu Medrol 125 mg (Methyl Prednisolone Sodium Succinate) 12:00:47 FIRE OFFICER CPT-23964 Venipuncture Draw Fee 11:33:31 CDT CPT-57303 EKG Trac and Interp 11:21:09 CDT CPT-50968 Chest 2V Frontal and Lat 11:21:09 CDT 12/15 CPT-56797 Venipuncture Draw Fee 08:02:34 CDT CPT-23561 Chest 2V Frontal and Lat 05:47:59 CDT 06/05
--- OUTSIDE RECORDS SUMMARY | 2019-10-08 08:30 | XMS REPORT | Clinical Summary ---
Author Author Caitlin, Juliana Martinez Organization [employer] [facility] Address Unknown Phone Unavailable Allergies, [...] sites Sinusitis 473.9 Active Diya De Guzman MAINTENANCE PLANNER Unspecified sinusitis (chronic) Bronchitis-Acute 466.0 Active Carlton Hu MD Acute bronchitis URI - acute 465.9 Active Elise Whitmore MAINTENANCE PLANNER Acute upper respiratory infections of unspecified site [...] 1 tablet by mouth daily LEV OFLOXACIN [id number] No Longer Active Carlton Hu MD Active FLUTICASONE PROPIONATE 50 MCG/ACT SUSP 2 sprays each n ostril daily for 2 weeks, then 1 spray each nostril daily. FLUTICASONE PRO PIONATE 81289994487 Active Elise Whitmore APRN Active ZITHROMAX 250 MG TAB 2 po today, then 1 po q days 2-5 AZITHROMYCIN 06076925959 No Longer Active Elise Whitmore APRN Acti ve XANAX 0.5 MG TABS one tablet by mouth daily prn anxiety ALPRAZOLAM 70130813571 Active Elise Whitmore APRN Active CYMBALTA 30 MG CPEP 1 cap by mouth daily for depression DULOXETINE HCL 02327346616 Active Carlton Hu MD Active CEFDINIR 300 MG CAPS 1 po BID x 10 days CEFDINI R 02225175932 No Longer Active Carlton Hu MD Active ZOCOR 40 MG TAB 1 tab by mouth daily SIMVASTATI N 17832051166 No Longer Active Carlton Hu MD Active CYCLOBENZAPRINE HCL 10 MG TABS 1 tablet by mouth BID prn had cherelle n CYCLOBENZAPRINE HCL 24030995331 No Longer Active Carlton Hu MD Active LEVOFLOXACIN 500 MG ORAL TABS 1 tab PO daily x 10 days LEVOFLOXACIN 04694538180 No Longer Active Carlton Hu MD Acti ve PREDNISONE 20 MG ORAL TABS 3 tab PO qd x 2d, 2 tab PO qd x 2d, 1 tab PO qd x 2d, 1/2 tab PO qd x 2d PREDNISONE 74947291794 No Longer Active Carlton Hu MD Active TUSSIONEX PENNKINETIC ER 10-8 MG/5ML ORAL LQCR 5 mL PO q 12 hrs PRN cough HYDROCOD POLST-CHLORPHEN POLST 07401900205 Active Zo meeks Active FLUTICASONE PROPIONATE 50 MCG/ACT SUSP 1 to 2 sprays each no stril daily FLUTICASONE PROPIONATE 83144670235 No Longer Active T jaz HERNANDEZ Active CHERATUSSIN AC 100-10 MG/5ML SYRP 1 tsp by mouth every 4 hours as needed for cough GUAIFENESIN-CODEINE 79222566955 No Longer Activ e Blaine HERNANDEZ Active PROMETHAZINE-CODEINE 6.25-10 MG/5ML SYRP 1 tsp by mout h every 6 hours if needed for cough PROMETHAZINE-CODEINE 30501452486 No Long er Active Blaine HERNANDEZ Active CHERATUSSIN AC 100-10 MG/5ML SYRP 1 tsp by mouth every 4 hours as needed for cough GUAIFENESIN-CODEINE 07288919530 No Longer Activ e Blaine HERNANDEZ Active ZITHROMAX Z-REYNA 250 MG TABS 2 today, then 1 daily for 4 days 201 08/30/03 AZITHROMYCIN 03902962267 No Longer Active Columba Raida Act nael ZITHROMAX 250 MG TAB 2 po today, then 1 po q days 2-5 AZITHROMYCIN 28177532109 No Longer Active Carlton Hu MD Acti ve ZITHROMAX Z-REYNA 250 MG TABS 2 today, then 1 daily for 4 days 201 08/07/20 AZITHROMYCIN 53291475387 No Longer Active Columba Raida Act nael AUGMENTIN 875-125 MG TAB 1 po BID x 10 days AMOXICILLIN- POT CLAVULANATE 51406969030 No Longer Active Diya De Guzman APRN Active ZITHROMAX 250 MG TAB 2 po today, then 1 po q days 2-5 AZITHROMYCIN 46198797026 No Longer Active Carlton Hu MD Acti ve TRAMADOL HCL 50 MG TABS 1 po tid with ES Tylenol TRAMADOL HCL 84646651138 Active Carlton Hu MD Active PREMARIN 0.625 MG TABS TAKE 1 TAB BY MOUTH DAILY 07/25 ESTROGENS CONJUGATED 90040336219 No Longer Active Ridge Bess DO Active CYMBALTA 30 MG CPEP 1 cap by mouth daily DULOXE SNEHA HCL 82361982985 No Longer Active Ridge Bess DO Active AMOXICILLIN 500 MG CAP 1 tab by mouth 3 times daily x 10 days 20 14/04/28 AMOXICILLIN 22437952183 No Longer Active Carlton Hu MD Active AMOXICILLIN 500 MG CAP 1 tab by mouth 3 times daily x 10 days 20 13/03/08 AMOXICILLIN 81837223428 No Longer Active Carlton Hu MD Active PROMETHAZINE-CODEINE 6.25-10 MG/5ML SYRP 1 tsp by mouth ever y 8 hours prn cough PROMETHAZINE-CODEINE 50848082733 No Longer Active Robert Hu MD Active MEDROL (REYNA) 4 MG TABS 6 pills x 1 day, then 5 pill s x 1 day then 4 pills x 1 day, then 3 pills x 1 day, then 2 pills x 1 day, then 1 pill x 1 day, then stop METHYLPREDNISOLONE 54146081855 No Longer Active Parris Mora MD Active AZITHROMYCIN 250 MG TABS 2 po qd x 1 day, then 1 po qd x 4 days AZITHROMYCIN 28472022893 No Longer Active Perez Mora MD Active SYMBICORT 160-4.5 MCG/ACT AERO 2 puffs bid with rinse after 2011 BUDESONIDE-FORMOTEROL FUMARATE 34617195856 No Longer Active Perez Mora MD Active LYRICA 75 MG CAPS TAKE 1 CAPSULE BY MOUTH TWICE DAILY 2013 PREGABALIN 62791261488 No Longer Active Carlton Hu MD Active LYRICA 100 MG CAPS Take 1 tab po BID for fibromyalgia PREGABALIN 96551124769 Active Carlton Hu MD Active TOPAMAX 25 MG TABS 1 qHS x 1 week, then 1 BID x 1 week, then 1 qAM and 2 qHS x 1 week, then 2 BID (migraine prevention) TOPIRAMAT E 08095722018 No Longer Active Jerica Farnaz FUENTES Active TOPAMAX 50 MG TABS take 1 tab po BID for migraines. 12/07/10 TOPIRAMATE 17941458110 No Longer Active Jerica Manzoerica AGUILARA Ac tive TOPAMAX 100 MG TABS Take 1 tablet po bid TOPIRAMATE 4999 0823577 Active Carlton Hu MD Active TRIAMCINOLONE ACETONIDE 0.1 % CREA apply three times daily prn r beatrice TRIAMCINOLONE ACETONIDE 30565353589 No Longer Active Carlton Hu MD Active PAXIL 40 MG TAB take 1 tab po qday for depression PAROXETINE HCL 24717173154 Active Elise Whitmore MAINTENANCE PLANNER Active CHERATUSSIN AC 100-10 MG/5ML SYRP 5ml po q6hr PRN Cough GUAIFENESIN-CODEINE 11906259254 No Longer Active Carlton Hu MD Active MEDROL (REYNA) 4 MG TABS 6 tabs on day 1, 5 tabs on d ay 2, 4 tabs on day 3, 3 tabs on day 4, 2 tabs on day 5, 1 tab on day 6 METHYLPREDNISOLONE 26673830758 No Longer Active Perez Mora MD Active AZITHROMYCIN 250 MG TABS 2 po qd x 1 day, then 1 po qd x 4 days AZITHROMYCIN 67593778010 No Longer Active Perez Mora MD Active PROPRANOLOL HCL 60 MG TABS 1 PO Q D PROPRANOL OL HCL 78929767505 No Longer Active Perez Mora MD Active CHERATUSSIN AC 100-10 MG/5ML SYRP take one tsp po Q 6hours prn c ough GUAIFENESIN-CODEINE 04375304095 No Longer Active Perez Means Active AUGMENTIN 875-125 MG TAB 1 tab by mouth twice daily with food 20 12/03/31 AMOXICILLIN-POT CLAVULANATE 58389662347 No Longer Active Chanel Mora MD Active CHERATUSSIN AC 100-10 MG/5ML SYRP 1 tsp by mouth every 4 hours as needed for cough GUAIFENESIN-CODEINE 13890750320 No Longer Activ e Hugo Restrepo MD Active ACETAMINOPHEN-CODEINE #3 300-30 MG TABS 1 PO Q 4-6 HRS PRN PAIN ACETAMINOPHEN-CODEINE 09529125004 No Longer Active Hugo Restrepo MD Active LEVAQUIN 500 MG TABS take one po QD LEVOFLOXACI N 83832987493 No Longer Active Griffin HERNANDEZ Active PREDNISONE 20 MG TAB Take 3 tabs daily for 3 days , 2 tabs daily for 3 days, 1 tab daily for 3 days, 1/2 tab daily for 3 days P REDNISONE 96590591365 No Longer Active Carlton Hu MD Active AVELOX 400 MG TABS 1 tab by mouth daily MOXIFLO XACIN HCL 61747406042 No Longer Active Carlton Hu MD Active CHERATUSSIN AC 100-10 MG/5ML SYRP 1 tsp by mouth every 4 hours as needed for cough GUAIFENESIN-CODEINE 42615105302 No Longer Activ e Hugo Restrepo MD Active AVELOX 400 MG TABS 1 tab by mouth daily MOXIFLO XACIN HCL 09550446083 No Longer Active Marcy De L aRosa MD PhD Active TERBINAFINE HCL 250 MG TABS 1 qDay TERBINAF INE HCL 40083059431 No Longer Active Marcy De La Rosa MD PhD Active CHERATUSSIN AC 100-10 MG/5ML SYRP 1 tsp by mouth every 4 hours as needed for cough GUAIFENESIN-CODEINE 82678862240 No Longer Activ e Marcy De La Rosa MD PhD Active AVELOX 400 MG TABS 1 tab by mouth daily MOXIFLO XACIN HCL 56899247881 No Longer Active Marcy De La Rosa MD PhD Active HYDROCODONE-ACETAMINOPHEN 5-325 MG TABS 1 po q 6hr PRN cough 201 05/09/16 HYDROCODONE-ACETAMINOPHEN 99239775622 No Longer Active Marcy De La Rosa MD PhD Active PREDNISONE 20 MG TAB 2 tabs daily for 3 days, 1 t ab daily for 3 days, 1/2 tab daily for 2 days PREDNISONE 89230345927 No Longer Active Carlton Hu MD Active CEFDINIR 300 MG CAPS by mouth twice a day CEFDI ODILIA 32051157202 No Longer Active Carlton Hu MD Active HYDROCHLOROTHIAZIDE 25 MG TABS 1 TAB PO DAILY H YDROCHLOROTHIAZIDE 11851544914 Active Carlton Hu MD Active ACETAMINOPHEN-CODEINE #3 300-30 MG TABS 1 tablet po q 4-6hrs prn pain ACETAMINOPHEN-CODEINE 85840362155 No Longer Active Ridge Bess DO Active ZITHROMAX 250 MG TAB 2 po today, then 1 po q days 2-5 AZITHROMYCIN 88147695166 No Longer Active Carlton Hu MD Acti ve CHERATUSSIN AC 100-10 MG/5ML SYRP take 1 tsp po q4-6 hours prn c ough GUAIFENESIN-CODEINE 43486745902 No Longer Active Carlton Hu MD Active ACETAMINOPHEN-CODEINE #3 300-30 MG TABS 1 PO Q 4-6 HR PRN PAIN 2 ACETAMINOPHEN-CODEINE 89241505813 No Longer Active Carlton rich MD Active LORTAB 7.5-500 MG/15ML ELIX 7.5 ml po q 4 hour prn cough HYDROCODONE-ACETAMINOPHEN 37551438275 No Longer Active Carlton Hu MD Active PREDNISONE 20 MG TAB 1 po bid 3 days, then 1 po q day 3 days 201 05/03/07 PREDNISONE 87757070769 No Longer Active Carlton Hu MD Active ELMIRON 100 MG CAPS 2 tablets in the am and 1 tablet at hs PENTOSAN POLYSULFATE SODIUM 63461277837 Active Carlton Hu MD Ac tive CEFDINIR 300 MG CAPS by mouth twice a day CEFDI ODILIA 54489828308 No Longer Active Carlton Hu MD Active CEFDINIR 300 MG CAPS by mouth twice a day CEFDI ODILIA 50080322731 No Longer Active Carlton Hu MD Active CEFDINIR 300 MG CAPS by mouth twice a day CEFDI ODILIA 92923772399 No Longer Active Carlton Hu MD Active TESSALON PERLES 100 MG CAP 1 tablet by mouth 3 times daily a s needed for cough BENZONATATE 63443469254 No Longer Active Carlton bustamante MD Active CEFDINIR 300 MG CAPS by mouth twice a day CEFDI ODILIA 06345863030 No Longer Active Carlton Hu MD Active ZITHROMAX Z-REYNA 250 MG TABS 2 today, then 1 daily for 4 days 201 04/09/17 AZITHROMYCIN 20816843998 No Longer Active Hugo Restrepo MD Active TESSALON PERLES 100 MG CAP 1 tablet by mouth 3 times daily a s needed for cough TESSALON PERLES 100 MG CAP 481024 BENZONATATE I nactive PREDNISONE 20 MG TAB 1 po bid 3 days, then 1 po q day 3 days 201 05/03/07 PREDNISONE 20 MG TAB 863540 PREDNISONE Inactive LORTAB 7.5-500 MG/15ML ELIX 7.5 ml po q 4 hour prn cough LORTAB 7.5-500 MG/15ML ELIX HYDROCODONE-ACETAMINOPHEN Inacti ve ACETAMINOPHEN-CODEINE #3 300-30 MG TABS 1 PO Q 4-6 HR PRN PAIN 2 ACETAMINOPHEN-CODEINE #3 300-30 MG TABS 809503 ACETAMIN OPHEN-CODEINE Inactive CHERATUSSIN AC 100-10 MG/5ML SYRP take 1 tsp po q4-6 hours prn c ough CHERATUSSIN AC 100-10 MG/5ML SYRP 150303 GUAIFENESIN-CO DEINE Inactive ACETAMINOPHEN-CODEINE #3 300-30 MG TABS 1 tablet po q 4-6hrs prn pain ACETAMINOPHEN-CODEINE #3 300-30 MG TABS 610152 ACETAMIN OPHEN-CODEINE Inactive HYDROCODONE-ACETAMINOPHEN 5-325 MG TABS 1 po q 6hr PRN cough 201 05/09/16 HYDROCODONE-ACETAMINOPHEN 5-325 MG TABS 995640 HYDROCODONE-ACETAMINOPHEN Inactive AVELOX 400 MG TABS 1 tab by mouth daily A VELOX 400 MG TABS 728034 MOXIFLOXACIN HCL Inactive CHERATUSSIN AC 100-10 MG/5ML SYRP 1 tsp by mouth every 4 hours as needed for cough CHERATUSSIN AC 100-10 MG/5ML SYRP 955130 GUAIFENESIN-CODEINE Inactive TERBINAFINE HCL 250 MG TABS 1 qDay TERBINAFINE HCL 250 MG TABS 109842 TERBINAFINE HCL Inactive CHERATUSSIN AC 100-10 MG/5ML SYRP 1 tsp by mouth every 4 hours as needed for cough CHERATUSSIN AC 100-10 MG/5ML SYRP 921018 GUAIFENESIN-CODEINE Inactive ACETAMINOPHEN-CODEINE #3 300-30 MG TABS 1 PO Q 4-6 HRS PRN PAIN ACETAMINOPHEN-CODEINE #3 300-30 MG TABS 782463 ACETAMINOPHEN-CODEIN E Inactive CHERATUSSIN AC 100-10 MG/5ML SYRP 1 tsp by mouth every 4 hours as needed for cough CHERATUSSIN AC 100-10 MG/5ML SYRP 137369 GUAIFENESIN-CODEINE Inactive AUGMENTIN 875-125 MG TAB 1 tab by mouth twice daily with food 20 12/03/31 AUGMENTIN 875-125 MG TAB 801081 AMOXICILLIN-POT CLAVULA EFE Inactive CHERATUSSIN AC 100-10 MG/5ML SYRP take one tsp po Q 6hours prn c ough CHERATUSSIN AC 100-10 MG/5ML SYRP 101747 GUAIFENESIN-CO DEINE Inactive PROPRANOLOL HCL 60 MG TABS 1 PO Q D P ROPRANOLOL HCL 60 MG TABS 961038 PROPRANOLOL HCL Inactive TOPAMAX 50 MG TABS take 1 tab po BID for migraines. 12/07/10 TOPAMAX 50 MG TABS 096533 TOPIRAMATE Inactive TOPAMAX 25 MG TABS 1 qHS x 1 week, then 1 BID x 1 week, then 1 qAM and 2 qHS x 1 week, then 2 BID (migraine prevention) TOPAMAX 2 5 MG TABS 210110 TOPIRAMATE Inactive LYRICA 75 MG CAPS TAKE 1 CAPSULE BY MOUTH TWICE DAILY LYRICA 75 MG CAPS PREGABALIN Inactive SYMBICORT 160-4.5 MCG/ACT AERO 2 puffs bid with rinse after 2011 SYMBICORT 160-4.5 MCG/ACT AERO BUDESONIDE-FORMOT SÁNCHEZ FUMARATE Inactive PROMETHAZINE-CODEINE 6.25-10 MG/5ML SYRP 1 tsp by mouth ever y 8 hours prn cough PROMETHAZINE-CODEINE 6.25-10 MG/5ML SYRP 164239 PROMETHAZINE-CODEINE Inactive CYMBALTA 30 MG CPEP 1 cap by mouth daily CYMBALTA 30 MG CPEP 383152 DULOXETINE HCL Inactive PREMARIN 0.625 MG TABS TAKE 1 TAB BY MOUTH DAILY 07/25 PREMARIN 0.625 MG TABS ESTROGENS CONJUGATED Inactive CHERATUSSIN AC 100-10 MG/5ML SYRP 1 tsp by mouth every 4 hours as needed for cough CHERATUSSIN AC 100-10 MG/5ML SYRP 107366 GUAIFENESIN-CODEINE Inactive PROMETHAZINE-CODEINE 6.25-10 MG/5ML SYRP 1 tsp by mout h every 6 hours if needed for cough PROMETHAZINE-CODEINE 6.25-10 MG/5ML SYRP 012989 PROMETHAZINE-CODEINE Inactive CHERATUSSIN AC 100-10 MG/5ML SYRP 1 tsp by mouth every 4 hours as needed for cough CHERATUSSIN AC 100-10 MG/5ML SYRP 750393 GUAIFENESIN-CODEINE Inactive FLUTICASONE PROPIONATE 50 MCG/ACT SUSP 1 to 2 sprays each no stril daily FLUTICASONE PROPIONATE 50 MCG/ACT SUSP 574577 FLUTICASONE PROPIONATE Inactive PREDNISONE 20 MG ORAL TABS 3 tab PO qd x 2d, 2 tab PO qd x 2d, 1 tab PO qd x 2d, 1/2 tab PO qd x 2d PREDNISONE 20 MG ORAL TABS 642450 PREDNISONE Inactive LEVOFLOXACIN 500 MG ORAL TABS 1 tab PO daily x 10 days LEVOFLOXACIN 500 MG ORAL TABS 538059 LEVOFLOXACIN Inactive CYCLOBENZAPRINE HCL 10 MG TABS 1 tablet by mouth BID prn had cherelle n CYCLOBENZAPRINE HCL 10 MG TABS 419770 CYCLOBENZAPRINE H CL Inactive ZOCOR 40 MG TAB 1 tab by mouth daily ZOCOR 40 M G TAB 678068 SIMVASTATIN Inactive ZITHROMAX Z-REYNA 250 MG TABS 2 today, then 1 daily for 4 days 201 04/09/17 ZITHROMAX Z-REYNA 250 MG TABS 0445355 AZITHROMYCIN Inac tive CEFDINIR 300 MG CAPS [...] q days 2-5 ZITHROMAX 250 MG TAB 7631299 AZITHROMYCIN Inactive CEFDINIR 300 MG CAPS by mouth twice a day CEFDINIR 300 MG CAPS 20020704 CEFDINIR Inactive PREDNISONE 20 MG TAB 2 tabs daily for 3 days, 1 t ab daily for 3 days, 1/2 tab daily for 2 days PREDNISONE 20 MG TAB 438976 PREDNISON E Inactive AVELOX 400 MG TABS 1 tab by mouth daily A VELOX 400 MG TABS 551069 MOXIFLOXACIN HCL Inactive AVELOX 400 MG TABS 1 tab by mouth daily A VELOX 400 MG TABS 479843 MOXIFLOXACIN HCL Inactive PREDNISONE 20 MG TAB Take 3 tabs daily for 3 days , 2 tabs daily for 3 days, 1 tab daily for 3 days, 1/2 tab daily for 3 days PREDNISONE 20 MG TAB 514415 PREDNISONE Inactive LEVAQUIN 500 MG TABS take one po QD LEVAQUIN 50 0 MG TABS 311623 LEVOFLOXACIN Inactive AZITHROMYCIN 250 MG TABS 2 po qd x 1 day, then 1 po qd x 4 days AZITHROMYCIN 250 MG TABS 2160621 AZITHROMYCIN Inactiv e MEDROL (REYNA) 4 MG TABS 6 tabs on day 1, 5 tabs on d ay 2, 4 tabs on day 3, 3 tabs on day 4, 2 tabs on day 5, 1 tab on day 6 MEDROL (REYNA) 4 MG TABS 787111 METHYLPREDNISOLONE Inactive CHERATUSSIN AC 100-10 MG/5ML SYRP 5ml po q6hr PRN Cough CHERATUSSIN AC 100-10 MG/5ML SYRP 014318 GUAIFENESIN-CODEINE Inacti ve TRIAMCINOLONE ACETONIDE 0.1 % CREA apply three times daily prn r beatrice TRIAMCINOLONE ACETONIDE 0.1 % CREA 0332492 TRIAMCINOLONE ACETONIDE Inactive AZITHROMYCIN 250 MG TABS 2 po qd x 1 day, then 1 po qd x 4 days AZITHROMYCIN 250 MG TABS 5957685 AZITHROMYCIN Inactiv e MEDROL (REYNA) 4 MG TABS 6 pills x 1 day, then 5 pill s x 1 day then 4 pills x 1 day, then 3 pills x 1 day, then 2 pills x 1 day, then 1 pill x 1 day, then stop MEDROL (REYNA) 4 MG TABS 200757 METHYLPREDNISOLONE Inactive AMOXICILLIN 500 MG CAP 1 tab by mouth 3 times daily x 10 days 20 13/03/08 AMOXICILLIN 500 MG CAP 196070 AMOXICILLIN Inactive AMOXICILLIN 500 MG CAP 1 tab by mouth 3 times daily x 10 days 20 14/04/28 AMOXICILLIN 500 MG CAP 416315 AMOXICILLIN Inactive ZITHROMAX 250 MG TAB 2 po today, then 1 po q days 2-5 ZITHROMAX 250 MG TAB 5936690 AZITHROMYCIN Inactive AUGMENTIN 875-125 MG TAB 1 po BID x 10 days AUGMENTIN 875- 125 MG TAB 393251 AMOXICILLIN-POT CLAVULANATE Inactive ZITHROMAX Z-REYNA 250 MG TABS 2 today, then 1 daily for 4 days 201 08/07/20 ZITHROMAX Z-REYNA 250 MG TABS 0422833 AZITHROMYCIN Inac tive ZITHROMAX 250 MG TAB 2 po today, then 1 po q days 2-5 ZITHROMAX 250 MG TAB 5975860 AZITHROMYCIN Inactive ZITHROMAX Z-REYNA 250 MG TABS 2 today, then 1 daily for 4 days 201 08/30/03 ZITHROMAX Z-REYNA 250 MG TABS 2475741 AZITHROMYCIN Inac tive CEFDINIR 300 MG CAPS 1 po BID x 10 days C EFDINIR 300 MG CAPS 223332 CEFDINIR Inactive ZITHROMAX 250 MG TAB 2 po today, then 1 po q days 2-5 ZITHROMAX 250 MG TAB 7425210 AZITHROMYCIN Inactive LEVAQUIN 500 MG TAB 1 tablet by mouth daily LEVAQUIN 500 MG TAB 764311 LEVOFLOXACIN Inactive Vital Signs Date Name Value [...] Measured Encounters Code Encounter Date Provider Facility CPT-35952 Level 3 Est. Patient 10:11:46 CDT Carlton rich MD [facility] CPT-54685 Level 3 Est. Patient 17:29:43 CDT Italo KHAN [facility] CPT-31877 Level 3 Est. Patient 11:58:06 CDT Italo MAINTENANCE PLANNER [facility] CPT-31549 Level 4 Est. Patient 14:36:51 CDT Carlton rich MD [facility] CPT-72442 Level 3 Est. Patient 18:16:00 TELEVISION DIRECTOR Blaine W Cloven [facility] CPT-71887 Level 3 Est. Patient 09:45:49 TELEVISION DIRECTOR Carlton rich MD [facility] CPT-18692 Level 3 Est. Patient 13:19:20 CDT Carlton rich MD [facility] CPT-68874 Level 3 Est. Patient 13:06:43 CDT Ridge tam DO [facility] CPT-36193 Level 3 Est. Patient 10:03:07 CDT Perez Mora MD [facility] CPT-56185 Level 3 Est. Patient 19:50:35 TELEVISION DIRECTOR Carlton rich MD [facility]-43581 Level 4 Est. Patient 18:05:01 TELEVISION DIRECTOR Carlton rich MD [facility] CPT-02912 Level 3 Est. Patient 10:45:55 TELEVISION DIRECTOR Hugo Restrepo MD [facility] CPT-95933 Level 3 Est. Patient 14:12:49 CDT Griffin lincoln [facility] CPT-85043 Level 3 Est. Patient 17:37:24 CDT Carlton rich MD [facility] CPT-51756 Level 3 Est. Patient 16:51:54 CDT Carlton rich MD [facility] CPT-07503 Level 3 Est. Patient 12:18:11 CDT Hugo Restrepo MD [facility] CPT-19378 Level 3 Est. Patient 11:30:25 CDT Marcy crisostomo MD PhD [facility]-51589 Level 3 Est. Patient 12:00:47 TELEVISION DIRECTOR Carlton rich MD [facility]-29984 Level 3 Est. Patient 16:31:06 TELEVISION DIRECTOR Carlton rich MD [facility]-87221 Level 3 Est. Patient 16:23:24 TELEVISION DIRECTOR Ridge atm [facility] CPT-01663 Level 3 Est. Patient 12:34:12 CDT Carlton rich MD [facility] CPT-86332 Level 2 Est. Patient 15:43:33 CDT Robi armstrong MD [facility] CPT-79133 Level 4 Est. Patient 14:04:44 CDT Carlton rich MD [facility] CPT-23154 Level 3 Est. Patient 05:47:59 CDT Ridge tam [facility] CPT-01620 Level 3 Est. Patient 13:12:53 TELEVISION DIRECTOR Carlton rich MD [facility] CPT-00740 Level 3 Est. Patient 14:26:53 CDT Hugo Restrepo MD [facility] Procedures Code Procedure Name Date Entry Date Standard Desc ription CPT-J0696 Rocephin 1gm Inj Solr 14:32:13 CDT CPT-J1020 Depo Medrol 60 mg (Methyl Prednisolone A cetate) 14:32:13 CDT CPT-J1100 Decadron 6mg (Dexamethasone) 14:32:13 CDT 2 CPT-54234 Hip bilat min 2V w AP pelvis 13:16:20 CDT 2 CPT-06067 Pelvis only 13:07:33 CDT CPT-64648 Spec Collection and Handling Fee 11:25:12 C DT CPT-47293 Fluzone Quadrivalent Intramuscular Suspe nsion 0.5 ML 14:31:55 CDT CPT-14958 Abx/Therapy Injection 13:28:47 TELEVISION DIRECTOR CPT-J2930 Solu Medrol 125 mg (Methyl Prednisolone Sodium Succinate) 12:00:47 TELEVISION DIRECTOR CPT-13058 Venipuncture Draw Fee 11:33:31 CDT CPT-91438 EKG Trac and Interp 11:21:09 CDT CPT-03832 Chest 2V Frontal and Lat 11:21:09 CDT 12/15 CPT-82787 Venipuncture Draw Fee 08:02:34 CDT CPT-42233 Chest 2V Frontal and Lat 05:47:59 CDT 06/05
--- OUTSIDE RECORDS SUMMARY | 2019-10-08 08:31 | XMS REPORT | Clinical Summary ---
Author Author Caitlin, Juliana Martinez Organization [facility] Address Unknown [...] and nails Sinusitis - acute 461.9 Active lEise Garcia APRN Acute sinusitis, unspecified Angina pectoris [...] po qd x 5 days P REDNISONE 18428920307 No Longer Active Perez Mora MD Active PROAIR HFA 108 (90 BASE) MCG/ACT INHALATION AEROSOL SO LUTION 2 puffs four times a day as needed ALBUTEROL SULFATE 58696008239 No Long er Active Becky FUENTES Active ASPIRIN 81 MG ORAL TABLET 1 po qd ASPIRIN 65590951620 Active Carlton Hu MD Active PREDNISONE 20 MG ORAL TABLET 1 tab twice daily for 3 d ay, then one daily for three days PREDNISONE 92501044750 No Longer Active Carlton Hu MD Active AUGMENTIN 875-125 MG ORAL TABLET 1 po BID x 10 days 16/03/22 AMOXICILLIN-POT CLAVULANATE 84963403888 No Longer Active Elise Garcia APRN Active TERBINAFINE HCL 250 MG ORAL TABLET 1 qDay for nail fungus 7 TERBINAFINE HCL 26611536466 No Longer Active Carlton Hu MD A ctive TUSSIONEX PENNKINETIC ER 10-8 MG/5ML ORAL SUSPENSION E XTENDED RELEASE 5ml po q12hr PRN Cough HYDROCOD POLST-CHLORPHEN POLST 71510734255 Active Perez Mora MD Active AMOXICILLIN 500 MG ORAL CAPSULE 1 cap by mouth three times a day AMOXICILLIN 08184047501 No Longer Active Carlton Hu MD Active ELMIRON 100 MG ORAL CAPSULE 2 tablets in the am and 1 tablet at hs PENTOSAN POLYSULFATE SODIUM 61386538376 No Longer Active Robert Hu MD Active MUCINEX D 60-600 MG ORAL TABLET EXTENDED RELEASE 12 HOUR 1 t ab po q am PSEUDOEPHEDRINE-GUAIFENESIN 45146846507 No Longer Act nael Carlton Hu MD Active MUCINEX DM MAXIMUM STRENGTH 60-1200 MG ORAL TABLET EXT ENDED RELEASE 12 HOUR 1 tab po q am DEXTROMETHORPHAN-GUAIFENESIN 56102687860 No Longer Active Carlton Hu MD Active TUSSIONEX PENNKINETIC ER 10-8 MG/5ML ORAL SUSPENSION E XTENDED RELEASE 5ml po q12hr PRN Cough HYDROCOD POLST-CHLORPHEN POLST 5 1944497421 No Longer Active Carlton Hu MD Active POTASSIUM CHLORIDE ER 20 MEQ ORAL TABLET EXTENDED RELE ASE Take 1 by mouth 4 times daily for 7 days POTASSIUM CHLORIDE 85214488428 No Longer Active Carlton Hu MD Active ZITHROMAX 250 MG ORAL TABLET 2 po today, then 1 po q days 2-5 20 14/09/04 AZITHROMYCIN 95470283958 No Longer Active Elise Garcia APRN Active TUSSIONEX PENNKINETIC ER 10-8 MG/5ML ORAL SUSPENSION E XTENDED RELEASE 5 ml twice a day as needed for cough HYDROCOD POLST-CHLORPH EN POLST 59742159531 No Longer Active Elise Garcia APRN Active MONTELUKAST SODIUM 10 MG ORAL TABLET 1 po daily for Allergy MONTELUKAST SODIUM 57722495532 Active Carlton Hu MD Ac tive TUSSIONEX PENNKINETIC ER 10-8 MG/5ML ORAL SUSPENSION E XTENDED RELEASE 5ml po q12hr PRN Cough HYDROCOD POLST-CHLORPHEN POLST 5 1627283802 No Longer Active Hugo Restrepo MD Active GABAPENTIN 100 MG ORAL CAPSULE 1 po BID for fibromyalgia GABAPENTIN 93723289310 Active Carlton Hu MD Active LYRICA 100 MG ORAL CAPSULE Take 1 tab po BID for fibromyalgia 20 11/08/21 PREGABALIN 47745589645 No Longer Active Elise Garcia APRN A ctive PREDNISONE 20 MG ORAL TABLET 2 tabs daily for 3 days, 1 tab daily for 3 days, 1/2 tab daily for 2 days PREDNISONE 28302165015 No Longer Active Diya De Guzman APRN Active TUSSIONEX PENNKINETIC ER 10-8 MG/5ML ORAL SUSPENSION E XTENDED RELEASE 5 mL PO q 12 hrs PRN cough HYDROCOD POLST-CHLORPHEN POLST 248873 02534 No Longer Active Jillina Gege RICEN Active FLUTICASONE PROPIONATE 50 MCG/ACT NASAL SUSPENSION 2 s prays each nostril daily until bottle is empty FLUTICASONE PROPIONATE 365409462 99 No Longer Active Diya De Guzmna APRN Active ASMANEX 60 METERED DOSES 220 MCG/INH INHALATION AEROSO L POWDER BREATH ACTIVATED 1 puff bid with rinse after MOMETASONE FUROATE 7723293 4102 No Longer Active 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 ZITHROMAX Z-REYNA 250 MG ORAL TABLET 2 today, then 1 daily for 4 d ays AZITHROMYCIN 03462742687 No Longer Active Elise Garcia APRN Active TUSSIONEX PENNKINETIC ER 10-8 MG/5ML ORAL SUSPENSION E XTENDED RELEASE 5ml po q12hr PRN Cough HYDROCOD POLST-CHLORPHEN POLST 5 1587250852 No Longer Active Elise Garcia APRN Active PREDNISONE 20 MG ORAL TABLET 2 tabs daily for 3 days, 1 tab daily for 3 days, 1/2 tab daily for 2 days PREDNISONE 50231101517 No Longer Active Diya De Guzman APRN Active AMOXICILLIN 500 MG ORAL CAPSULE 2 po BID x 10 days 201 09/29/08 AMOXICILLIN 26174570631 No Longer Active Diya De Guzman APRN Act nael SINGULAIR 10 MG ORAL TABLET 1 po qday for allergies 20 14/01/12 MONTELUKAST SODIUM 98225149041 No Longer Active Carlton Hu MD Active LEVAQUIN 500 MG ORAL TABLET 1 tablet by mouth daily 20 13/09/24 LEVOFLOXACIN 96798189645 No Longer Active Carlton Hu MD Acti ve FLUTICASONE PROPIONATE 50 MCG/ACT NASAL SUSPENSION 2 s prays each nostril daily for 2 weeks, then 1 spray each nostril daily. FLUTICASONE PROPIONATE 55025723547 Active Elise Garcia APRN Active ZITHROMAX 250 MG ORAL TABLET 2 po today, then 1 po q days 2-5 20 13/08/10 AZITHROMYCIN 06289138856 No Longer Active Elise Garcia APRN Active XANAX 0.5 MG ORAL TABLET one tablet by mouth daily prn anxiety 2015 ALPRAZOLAM 40539121603 Active Carlton Hu MD Active CYMBALTA 30 MG ORAL CAPSULE DELAYED RELEASE PARTICLES 1 cap by mouth daily for depression DULOXETINE HCL 77969731706 Active Carlton beltrán MD Active CEFDINIR 300 MG ORAL CAPSULE 1 po BID x 10 days CEFDINIR 24427926025 No Longer Active Carlton Hu MD Active ZOCOR 40 MG ORAL TABLET 1 tab by mouth daily SI MVASTATIN 96458147741 No Longer Active Carlton Hu MD Active CYCLOBENZAPRINE HCL 10 MG ORAL TABLET 1 tablet by mouth BID prn had pain CYCLOBENZAPRINE HCL 07760087748 No Longer Active Jayden Hu MD Active LEVOFLOXACIN 500 MG ORAL TABLET 1 tab PO daily x 10 days LEVOFLOXACIN 22201091444 No Longer Active Carlton Hu MD Acti ve PREDNISONE 20 MG ORAL TABLET 3 tab PO qd x 2d, 2 tab P O qd x 2d, 1 tab PO qd x 2d, 1/2 tab PO qd x 2d PREDNISONE 61851276609 No Lo nger Active Carlton Hu MD Active FLUTICASONE PROPIONATE 50 MCG/ACT NASAL SUSPENSION 1 t o 2 sprays each nostril daily FLUTICASONE PROPIONATE 36525213455 No Longer Ac tive Blaine HERNANDEZ Active CHERATUSSIN AC 100-10 MG/5ML ORAL SYRUP 1 tsp by mouth every 4 hours as needed for cough GUAIFENESIN-CODEINE 64367752158 No Longe r Active Blaine HERNANDEZ Active PROMETHAZINE-CODEINE 6.25-10 MG/5ML ORAL SYRUP 1 tsp b y mouth every 6 hours if needed for cough PROMETHAZINE-CODEINE 28330576689 No Longer Active Blaine HERNANDEZ Active CHERATUSSIN AC 100-10 MG/5ML ORAL SYRUP 1 tsp by mouth every 4 hours as needed for cough GUAIFENESIN-CODEINE 85472671865 No Longe r Active Blaine HERNANDEZ Active ZITHROMAX Z-REYNA 250 MG ORAL TABLET 2 today, then 1 daily for 4 d ays AZITHROMYCIN 60647692760 No Longer Active Columba Raida Act nael ZITHROMAX 250 MG ORAL TABLET 2 po today, then 1 po q days 2-5 20 14/03/21 AZITHROMYCIN 00391895648 No Longer Active Carlton Hu MD Active ZITHROMAX Z-REYNA 250 MG ORAL TABLET 2 today, then 1 daily for 4 d ays AZITHROMYCIN 96469266129 No Longer Active Columba Raida Act nael AUGMENTIN 875-125 MG ORAL TABLET 1 po BID x 10 days 13/01/20 AMOXICILLIN-POT CLAVULANATE 44375007103 No Longer Active Diya De Guzman APRN Active ZITHROMAX 250 MG ORAL TABLET 2 po today, then 1 po q days 2-5 20 12/08/14 AZITHROMYCIN 83078760670 No Longer Active Carlton Hu MD Active TRAMADOL HCL 50 MG ORAL TABLET 1 po tid with ES Tylenol TRAMADOL HCL 24792994986 Active Carlton Hu MD Active PREMARIN 0.625 MG ORAL TABLET TAKE 1 TAB BY MOUTH DAILY ESTROGENS CONJUGATED 92938822383 No Longer Active Ridge Bess DO A ctive CYMBALTA 30 MG ORAL CAPSULE DELAYED RELEASE PARTICLES 1 cap by mouth daily DULOXETINE HCL 51450777498 No Longer Active Ridge tam DO Active AMOXICILLIN 500 MG ORAL CAPSULE 1 tab by mouth 3 times daily x 10 days AMOXICILLIN 83123828926 No Longer Active Carlton bustamante MD Active AMOXICILLIN 500 MG ORAL CAPSULE 1 tab by mouth 3 times daily x 10 days AMOXICILLIN 97499102278 No Longer Active Carlton bustamante MD Active PROMETHAZINE-CODEINE 6.25-10 MG/5ML ORAL SYRUP 1 tsp b y mouth every 8 hours prn cough PROMETHAZINE-CODEINE 04339662392 No Longer Acti ve Carlton Hu MD Active MEDROL 4 MG ORAL TABLET THERAPY PACK 6 pills x 1 day, then 5 pills x 1 day then 4 pills x 1 day, then 3 pills x 1 day, then 2 pills x 1 day, then 1 pill x 1 day, then stop METHYLPREDNISOLONE 74487013542 No Long er Active Perez Mora MD Active AZITHROMYCIN 250 MG ORAL TABLET 2 po qd x 1 day, then 1 po q d x 4 days AZITHROMYCIN 84057521515 No Longer Active Perez Ambriz MD Active SYMBICORT 160-4.5 MCG/ACT INHALATION AEROSOL 2 puffs bid wit h rinse after BUDESONIDE-FORMOTEROL FUMARATE 27236413178 N o Longer Active Perez Mora MD Active LYRICA 75 MG ORAL CAPSULE TAKE 1 CAPSULE BY MOUTH TWICE DAILY PREGABALIN 89944700291 No Longer Active Carlton Hu MD Acti ve TOPAMAX 25 MG ORAL TABLET 1 qHS x 1 week, then 1 BID x 1 week, then 1 qAM and 2 qHS x 1 week, then 2 BID (migraine prevention) T OPIRAMATE 45896058337 No Longer Active Jerica FUENTES Active TOPAMAX 50 MG ORAL TABLET take 1 tab po BID for migraines. 07/02 TOPIRAMATE 24851893927 No Longer Active Jerica FUENTES Active TOPAMAX 100 MG ORAL TABLET Take 1 tablet po bid TO PIRAMATE 61960410332 Active Carlton Hu MD Active TRIAMCINOLONE ACETONIDE 0.1 % EXTERNAL CREAM apply three roger es daily prn rash TRIAMCINOLONE ACETONIDE 16585514180 No Longer Active Carlton Hu MD Active PAXIL 40 MG ORAL TABLET take 1 tab po qday for depression 0 PAROXETINE HCL 90079219278 Active Carlton Hu MD Active CHERATUSSIN AC 100-10 MG/5ML ORAL SYRUP 5ml po q6hr PRN Cough 20 13/04/14 GUAIFENESIN-CODEINE 16402568352 No Longer Active Carlton Hu MD Active MEDROL 4 MG ORAL TABLET THERAPY PACK 6 tabs on day 1, 5 tabs on day 2, 4 tabs on day 3, 3 tabs on day 4, 2 tabs on day 5, 1 tab on day 6 2013 METHYLPREDNISOLONE 94251660175 No Longer Active Perez Mora MD Active AZITHROMYCIN 250 MG ORAL TABLET 2 po qd x 1 day, then 1 po q d x 4 days AZITHROMYCIN 08465548531 No Longer Active Perez Ambriz MD Active PROPRANOLOL HCL 60 MG ORAL TABLET 1 PO Q D PROPRANOLOL HCL 55272829183 No Longer Active Perez Mora MD Activ e CHERATUSSIN AC 100-10 MG/5ML ORAL SYRUP take one tsp po Q 6h ours prn cough GUAIFENESIN-CODEINE 54281317959 No Longer Active Zia Mora MD Active AUGMENTIN 875-125 MG ORAL TABLET 1 tab by mouth twice daily with food AMOXICILLIN-POT CLAVULANATE 02707394360 No Longer Act nael Perez Mora MD Active CHERATUSSIN AC 100-10 MG/5ML ORAL SYRUP 1 tsp by mouth every 4 hours as needed for cough GUAIFENESIN-CODEINE 05478823231 No Longe r Active Hugo Restrepo MD Active ACETAMINOPHEN-CODEINE #3 300-30 MG ORAL TABLET 1 PO Q 4-6 HRS MI N PAIN ACETAMINOPHEN-CODEINE 36621618655 No Longer Active Hugo Restrepo MD Active LEVAQUIN 500 MG ORAL TABLET take one po QD LEVO FLOXACIN 76725398263 No Longer Active Griffin HERNANDEZ Active PREDNISONE 20 MG ORAL TABLET Take 3 tabs daily for 3 d ays, 2 tabs daily for 3 days, 1 tab daily for 3 days, 1/2 tab daily for 3 days 11/07 PREDNISONE 44796807621 No Longer Active Carlton Hu MD Acti ve AVELOX 400 MG ORAL TABLET 1 tab by mouth daily MOXIFLOXACIN HCL 82063282677 No Longer Active Carlton Hu MD Active CHERATUSSIN AC 100-10 MG/5ML ORAL SYRUP 1 tsp by mouth every 4 hours as needed for cough GUAIFENESIN-CODEINE 10371235878 No Longe r Active Hugo Restrepo MD Active AVELOX 400 MG ORAL TABLET 1 tab by mouth daily MOXIFLOXACIN HCL 71847725298 No Longer Active Marcy De La Rosa MD PhD Active TERBINAFINE HCL 250 MG ORAL TABLET 1 qDay T ERBINAFINE HCL 79168647776 No Longer Active Marcy De La Rosa MD PhD Active CHERATUSSIN AC 100-10 MG/5ML ORAL SYRUP 1 tsp by mouth every 4 hours as needed for cough GUAIFENESIN-CODEINE 45354624801 No Longe r Active Marcy De La Rosa MD PhD Active AVELOX 400 MG ORAL TABLET 1 tab by mouth daily MOXIFLOXACIN HCL 34981802196 No Longer Active Marcy De La Rosa MD PhD Active HYDROCODONE-ACETAMINOPHEN 5-325 MG ORAL TABLET 1 po q 6hr PRN co ugh HYDROCODONE-ACETAMINOPHEN 07408356080 No Longer Active aMrcy De La Rosa MD PhD Active PREDNISONE 20 MG ORAL TABLET 2 tabs daily for 3 days, 1 tab daily for 3 days, 1/2 tab daily for 2 days PREDNISONE 18106197111 No Longer Active Carlton Hu MD Active CEFDINIR 300 MG ORAL CAPSULE by mouth twice a day 2011 CEFDINIR 82953927843 No Longer Active Carlton Hu MD Acti ve HYDROCHLOROTHIAZIDE 25 MG ORAL TABLET 1 TAB PO DAILY HYDROCHLOROTHIAZIDE 96592127459 Active Carlton Hu MD A ctive ACETAMINOPHEN-CODEINE #3 300-30 MG ORAL TABLET 1 tablet po q 4-6 hrs prn pain ACETAMINOPHEN-CODEINE 73289327918 No Longer Active Ridge Bess DO Active ZITHROMAX 250 MG ORAL TABLET 2 po today, then 1 po q days 2-5 20 03/07/07 AZITHROMYCIN 40270851946 No Longer Active Carlton Hu MD Active CHERATUSSIN AC 100-10 MG/5ML ORAL SYRUP take 1 tsp po q4-6 h ours prn cough GUAIFENESIN-CODEINE 80355271488 No Longer Active Jayden Hu MD Active ACETAMINOPHEN-CODEINE #3 300-30 MG ORAL TABLET 1 PO Q 4-6 HR PRN PAIN ACETAMINOPHEN-CODEINE 11867274968 No Longer Active Arnol Hu MD Active LORTAB 7.5-500 MG/15ML ORAL ELIXIR 7.5 ml po q 4 hour prn cough HYDROCODONE-ACETAMINOPHEN 06249269714 No Longer Active Carlton Hu MD Active PREDNISONE 20 MG ORAL TABLET 1 po bid 3 days, then 1 po q day 3 days PREDNISONE 74051036943 No Longer Active Carlton Hu MD Active CEFDINIR 300 MG ORAL CAPSULE by mouth twice a day 2011 CEFDINIR 79497797903 No Longer Active Carlton Hu MD Acti ve CEFDINIR 300 MG ORAL CAPSULE by mouth twice a day 2010 CEFDINIR 09480987511 No Longer Active Carlton Hu MD Acti ve CEFDINIR 300 MG ORAL CAPSULE by mouth twice a day 2010 CEFDINIR 15834113078 No Longer Active Carlton Hu MD Acti ve TESSALON PERLES 100 MG ORAL CAPSULE 1 tablet by mouth 3 times daily as needed for cough BENZONATATE 14575278537 No Longer Active Carlton Hu MD Active CEFDINIR 300 MG ORAL CAPSULE by mouth twice a day 2010 CEFDINIR 43827678290 No Longer Active Carlton Hu MD Acti ve ZITHROMAX Z-REYNA 250 MG ORAL TABLET 2 today, then 1 daily for 4 d ays AZITHROMYCIN 31812947265 No Longer Active Hugo Restrepo MD Active TESSALON PERLES 100 MG ORAL CAPSULE 1 tablet by mouth 3 times daily as needed for cough TESSALON PERLES 100 MG ORAL CAPSULE 93622 7 BENZONATATE Inactive PREDNISONE 20 MG ORAL TABLET 1 po bid 3 days, then 1 po q day 3 days PREDNISONE 20 MG ORAL TABLET 408491 PREDNISONE Alvin ctive LORTAB 7.5-500 MG/15ML ORAL ELIXIR 7.5 [...] cough CHERATUSSIN AC 100-10 MG/5ML ORAL SYRUP 645479 GUAIFENESIN-CODEINE Inactive ACETAMINOPHEN-CODEINE #3 300-30 MG ORAL TABLET 1 tablet po q 4-6 hrs prn pain ACETAMINOPHEN-CODEINE #3 300-30 MG ORAL TABLET ACETAMINOPHEN-CODEINE Inactive HYDROCODONE-ACETAMINOPHEN 5-325 MG ORAL TABLET 1 po q 6hr PRN co ugh HYDROCODONE-ACETAMINOPHEN 5-325 MG ORAL TABLET 004545 HYDROCODONE-ACETAMINOPHEN Inactive AVELOX 400 MG ORAL TABLET 1 tab by mouth daily AVELOX 400 MG ORAL TABLET 783033 MOXIFLOXACIN HCL Inactive CHERATUSSIN AC 100-10 MG/5ML ORAL SYRUP 1 tsp by mouth every 4 hours as needed for cough CHERATUSSIN AC 100-10 MG/5ML ORAL SYRUP 9 82441 GUAIFENESIN-CODEINE Inactive TERBINAFINE HCL 250 MG ORAL TABLET 1 qDay 07/08 TERBINAFINE HCL 250 MG ORAL TABLET 491935 TERBINAFINE HCL Inactive CHERATUSSIN AC 100-10 MG/5ML ORAL SYRUP 1 tsp by mouth every 4 hours as needed for cough CHERATUSSIN AC 100-10 MG/5ML ORAL SYRUP 9 49713 GUAIFENESIN-CODEINE Inactive ACETAMINOPHEN-CODEINE #3 300-30 MG ORAL TABLET 1 PO Q 4-6 HRS MI N PAIN ACETAMINOPHEN-CODEINE #3 300-30 MG ORAL TABLET ACETAMINOPHEN-CODEINE Inactive CHERATUSSIN AC 100-10 MG/5ML ORAL SYRUP 1 tsp by mouth every 4 hours as needed for cough CHERATUSSIN AC 100-10 MG/5ML ORAL SYRUP 9 64474 GUAIFENESIN-CODEINE Inactive AUGMENTIN 875-125 MG ORAL TABLET 1 tab by mouth twice daily with food AUGMENTIN 875-125 MG ORAL TABLET 631018 AMOXICIL MADELINE-POT CLAVULANATE Inactive CHERATUSSIN AC 100-10 MG/5ML ORAL SYRUP take one tsp po Q 6h ours prn cough CHERATUSSIN AC 100-10 MG/5ML ORAL SYRUP 521159 GUAIFENESIN-CODEINE Inactive PROPRANOLOL HCL 60 MG ORAL TABLET 1 PO Q D PROPRANOLOL HCL 60 MG ORAL TABLET 648295 PROPRANOLOL HCL Inactive TOPAMAX 50 MG ORAL TABLET take 1 tab po BID for migraines. 07/02 TOPAMAX 50 MG ORAL TABLET 093488 TOPIRAMATE Inacti ve TOPAMAX 25 MG ORAL TABLET 1 qHS x 1 week, then 1 BID x 1 week, then 1 qAM and 2 qHS x 1 week, then 2 BID (migraine prevention) TOPAMAX 25 MG ORAL TABLET 034117 TOPIRAMATE Inactive LYRICA 75 MG ORAL CAPSULE TAKE 1 CAPSULE BY MOUTH TWICE DAILY LYRICA 75 MG ORAL CAPSULE PREGABALIN Inactive SYMBICORT 160-4.5 MCG/ACT INHALATION AEROSOL 2 puffs bid wit h rinse after SYMBICORT 160-4.5 MCG/ACT INHALATION AEROSOL BUDESONIDE- FORMOTEROL FUMARATE Inactive PROMETHAZINE-CODEINE 6.25-10 MG/5ML ORAL SYRUP 1 tsp b y mouth every 8 hours prn cough PROMETHAZINE-CODEINE 6.25-10 MG/ 5ML ORAL SYRUP 253318 PROMETHAZINE-CODEINE Inactive CYMBALTA 30 MG ORAL CAPSULE DELAYED RELEASE PARTICLES 1 cap by mouth daily CYMBALTA 30 MG ORAL CAPSULE DELAYED RELE ASE PARTICLES 254999 DULOXETINE HCL Inactive PREMARIN 0.625 MG ORAL TABLET TAKE 1 TAB BY MOUTH DAILY PREMARIN 0.625 MG ORAL TABLET ESTROGENS CONJUGATED Inactive CHERATUSSIN AC 100-10 MG/5ML ORAL SYRUP 1 tsp by mouth every 4 hours as needed for cough CHERATUSSIN AC 100-10 MG/5ML ORAL SYRUP 9 60499 GUAIFENESIN-CODEINE Inactive PROMETHAZINE-CODEINE 6.25-10 MG/5ML ORAL SYRUP 1 tsp b y mouth every 6 hours if needed for cough PROMETHAZINE-CODEINE 6.25-10 MG/5ML ORAL SYRUP 000451 PROMETHAZINE-CODEINE Inactive CHERATUSSIN AC 100-10 MG/5ML ORAL SYRUP 1 tsp by mouth every 4 hours as needed for cough CHERATUSSIN AC 100-10 MG/5ML ORAL SYRUP 9 03961 GUAIFENESIN-CODEINE Inactive FLUTICASONE PROPIONATE 50 MCG/ACT NASAL SUSPENSION 1 t o 2 sprays each nostril daily FLUTICASONE PROPIONATE 50 MCG/AC T NASAL SUSPENSION 7850802 FLUTICASONE PROPIONATE Inactive PREDNISONE 20 MG ORAL TABLET 3 tab PO qd x 2d, 2 tab P O qd x 2d, 1 tab PO qd x 2d, 1/2 tab PO qd x 2d PREDNISONE 20 MG ORAL TAB LET 983800 PREDNISONE Inactive LEVOFLOXACIN 500 MG ORAL TABLET 1 tab PO daily x 10 days LEVOFLOXACIN 500 MG ORAL TABLET 842823 LEVOFLOXACIN Inactive CYCLOBENZAPRINE HCL 10 MG ORAL TABLET 1 tablet by mouth BID prn had pain CYCLOBENZAPRINE HCL 10 MG ORAL TABLET 163088 CYCLOBENZAPRINE HCL Inactive ZOCOR 40 MG ORAL TABLET 1 tab by mouth daily 4 ZOCOR 40 MG ORAL TABLET 820459 SIMVASTATIN Inactive TUSSIONEX PENNKINETIC ER 10-8 MG/5ML [...] FLUTICASONE PROPIO EFE 50 MCG/ACT NASAL SUSPENSION 3264250 FLUTICASONE PROPIONATE Inactive TUSSIONEX PENNKINETIC ER 10-8 [...] three days PREDNISONE 20 MG ORAL TABLET 590673 PREDNIS ONE Inactive PROAIR HFA 108 (90 BASE) MCG/ACT INHALATION AEROSOL SO LUTION 2 puffs four times a day as needed PROAIR HFA 108 (90 B ASE) MCG/ACT INHALATION AEROSOL SOLUTION ALBUTEROL SULFATE Inactive ZITHROMAX Z-REYNA 250 MG ORAL TABLET 2 today, then 1 daily for 4 d ays ZITHROMAX Z-REYNA 250 MG ORAL TABLET 902228 AZITHROMYCIN Inactive CEFDINIR 300 MG ORAL CAPSULE by mouth twice a day 2010 CEFDINIR 300 MG ORAL CAPSULE 939642 CEFDINIR Inactive CEFDINIR 300 MG ORAL CAPSULE [...] 2-5 03/07/07 ZITHROMAX 250 MG ORAL TABLET 219974 AZITHROMYCIN Greer ctive CEFDINIR 300 MG ORAL CAPSULE by mouth twice a day 2011 CEFDINIR 300 MG ORAL CAPSULE 20020704 CEFDINIR Inactive PREDNISONE 20 MG ORAL TABLET 2 tabs daily for 3 days, 1 tab daily for 3 days, 1/2 tab daily for 2 days PREDNISONE 20 MG ORAL T ABLET 160154 PREDNISONE Inactive AVELOX 400 MG ORAL TABLET 1 tab by mouth daily AVELOX 400 MG ORAL TABLET 151263 MOXIFLOXACIN HCL Inactive AVELOX 400 MG ORAL TABLET 1 tab by mouth daily AVELOX 400 MG ORAL TABLET 288111 MOXIFLOXACIN HCL Inactive PREDNISONE 20 MG ORAL TABLET Take 3 tabs daily for 3 d ays, 2 tabs daily for 3 days, 1 tab daily for 3 days, 1/2 tab daily for 3 days 11/07 PREDNISONE 20 MG ORAL TABLET 384502 PREDNISONE Inactive LEVAQUIN 500 MG ORAL TABLET take one po QD LEVAQUIN 500 MG ORAL TABLET 860348 LEVOFLOXACIN Inactive AZITHROMYCIN 250 MG ORAL TABLET 2 po qd x 1 day, then 1 po q d x 4 days AZITHROMYCIN 250 MG ORAL TABLET 333495 AZITHROMY GIOVANNI Inactive MEDROL 4 MG ORAL TABLET THERAPY PACK 6 tabs on day 1, 5 tabs on day 2, 4 tabs on day 3, 3 tabs on day 4, 2 tabs on day 5, 1 tab on day 6 2013 MEDROL 4 MG ORAL TABLET THERAPY PACK 268633 METHYLPREDNISOLONE Greer ctive CHERATUSSIN AC 100-10 MG/5ML ORAL SYRUP 5ml po q6hr PRN Cough 20 13/04/14 CHERATUSSIN AC 100-10 MG/5ML ORAL SYRUP 249430 GUAIFENE SIN-CODEINE Inactive TRIAMCINOLONE ACETONIDE 0.1 % EXTERNAL CREAM apply three roger es daily prn rash TRIAMCINOLONE ACETONIDE 0.1 % EXTERNAL CREAM 101 4314 TRIAMCINOLONE ACETONIDE Inactive AZITHROMYCIN 250 MG ORAL TABLET 2 po qd x 1 day, then 1 po q d x 4 days AZITHROMYCIN 250 MG ORAL TABLET 940494 AZITHROMY GIOVANNI Inactive MEDROL 4 MG ORAL TABLET THERAPY PACK 6 pills x 1 day, then 5 pills x 1 day then 4 pills x 1 day, then 3 pills x 1 day, then 2 pills x 1 day, then 1 pill x 1 day, then stop MEDROL 4 MG ORAL TABLET THERAPY PACK 599954 METHYLPREDNISOLONE Inactive AMOXICILLIN 500 MG ORAL CAPSULE 1 tab by mouth 3 times daily x 10 days AMOXICILLIN 500 MG ORAL CAPSULE 549469 AMOXICILL IN Inactive AMOXICILLIN 500 MG ORAL CAPSULE 1 tab by mouth 3 times daily x 10 days AMOXICILLIN 500 MG ORAL CAPSULE 034286 AMOXICILL IN Inactive ZITHROMAX 250 MG ORAL TABLET 2 po today, then 1 po q days 2-5 20 12/08/14 ZITHROMAX 250 MG ORAL TABLET 601817 AZITHROMYCIN Alvin ctive AUGMENTIN 875-125 MG ORAL TABLET 1 po BID x 10 days 20 13/01/20 AUGMENTIN 875-125 MG ORAL TABLET 923824 AMOXICILLIN-POT CLAVULANATE Inactive ZITHROMAX Z-REYNA 250 MG ORAL TABLET 2 today, then 1 daily for 4 d ays ZITHROMAX Z-REYNA 250 MG ORAL TABLET 210388 AZITHROMYCIN Inactive ZITHROMAX 250 MG ORAL TABLET 2 po today, then 1 po q days 2-5 20 14/03/21 ZITHROMAX 250 MG ORAL TABLET 550284 AZITHROMYCIN Alvin ctive ZITHROMAX Z-REYNA 250 MG ORAL TABLET 2 today, then 1 daily for 4 d ays ZITHROMAX Z-REYNA 250 MG ORAL TABLET 687022 AZITHROMYCIN Inactive CEFDINIR 300 MG ORAL CAPSULE 1 po BID x 10 days 06/21 CEFDINIR 300 MG ORAL CAPSULE 20020704 CEFDINIR Inactive ZITHROMAX 250 MG ORAL TABLET 2 po today, then 1 po q days 2-5 20 13/08/10 ZITHROMAX 250 MG ORAL TABLET 567605 AZITHROMYCIN Greer ctive LEVAQUIN 500 MG ORAL TABLET 1 tablet by mouth daily 13/09/24 LEVAQUIN 500 MG ORAL TABLET 19971102 LEVOFLOXACIN Inactive SINGULAIR 10 MG ORAL TABLET 1 po qday for allergies 20 14/01/12 SINGULAIR 10 MG ORAL TABLET 20010504 MONTELUKAST SODIUM Inactive AMOXICILLIN 500 MG ORAL CAPSULE 2 po BID x 10 days 201 09/29/08 AMOXICILLIN 500 MG ORAL CAPSULE 345342 AMOXICILLIN Inactive PREDNISONE 20 MG ORAL TABLET 2 tabs daily for 3 days, 1 tab daily for 3 days, 1/2 tab daily for 2 days PREDNISONE 20 MG ORAL T ABLET 270043 PREDNISONE Inactive ZITHROMAX Z-REYNA 250 MG ORAL TABLET 2 today, then 1 daily for 4 d ays ZITHROMAX Z-REYNA 250 MG ORAL TABLET 558759 AZITHROMYCIN Inactive PREDNISONE 20 MG ORAL TABLET 2 tabs daily for 3 days, 1 tab daily for 3 days, 1/2 tab daily for 2 days PREDNISONE 20 MG ORAL T ABLET 693881 PREDNISONE Inactive ZITHROMAX 250 MG ORAL TABLET 2 po today, then 1 po q days 2-5 20 14/09/04 ZITHROMAX 250 MG ORAL TABLET 350488 AZITHROMYCIN Greer ctive AMOXICILLIN 500 MG ORAL CAPSULE 1 cap by mouth three times a day AMOXICILLIN 500 MG ORAL CAPSULE 805424 AMOXICILLIN Inactive TERBINAFINE HCL 250 MG ORAL TABLET 1 qDay for nail fungus 7 TERBINAFINE HCL 250 MG ORAL TABLET 973279 TERBINAFINE HCL Inact nael AUGMENTIN 875-125 MG ORAL TABLET 1 po BID x 10 days 16/03/22 AUGMENTIN 875-125 MG ORAL TABLET 540479 AMOXICILLIN-POT CLAVULANATE Inactive PREDNISONE 20 MG ORAL TABLET 2 po qd x 5 days PREDNISONE 20 MG ORAL TABLET 503254 PREDNISONE Inactive Vital Signs Date Name Value [...] - Chem istry sodium, serum 132 mmol/L 952-982 2613/07/12 potassium, serum 2.7 mmol/L 3.5-5.2 chloride, serum 93 mmol/L 98-107 carbon dioxide, venous blood 30.8 mmol/L 21.0-32 .0 blood glucose 107 mg/dL 65-110 calcium, serum 9.3 mg/dL 8.5-10.1 urea nitrogen, blood 12 mg/dL 7-18 creatinine, serum 1.00 mg/dL 0.60-1.30 sodium, serum 142 mmol/L 850-422 9381/07/17 potassium, serum 4.2 mmol/L 3.5-5.2 chloride, serum 106 mmol/L 98-107 carbon dioxide, venous blood 29.9 mmol/L 21.0-32 .0 blood glucose 108 mg/dL 65-110 calcium, serum 9.1 mg/dL 8.5-10.1 urea nitrogen, blood 11 mg/dL 7-18 creatinine, serum 0.81 mg/dL 0.60-1.30 sodium, serum 139 mmol/L [id number] 7700/03/19 potassium, serum 3.6 mmol/L 3.5-5.2 chloride, serum 100 mmol/L 98-107 carbon dioxide, venous blood 30.3 mmol/L 21.0-32 .0 blood glucose 101 mg/dL 65-110 calcium, serum 9.4 mg/dL 8.5-10.1 urea nitrogen, blood 10 mg/dL 7- creatinine, serum 0.96 mg/dL 0.60-1.30 Lab Report: Rapid Strep - Lab Microbial identification kit, rapid strep method Negative Negative Encounters Code Encounter Date Provider Facility CPT-42463 Level 3 Est. Patient 11:34:49 DIGITAL ACCOUNT MANAGER Perez Mora MD [facility] CPT-73171 Level 4 Est. Patient 09:51:32 DIGITAL ACCOUNT MANAGER Carlton rich MD [facility] CPT-09637 Level 3 Est. Patient 10:26:00 DIGITAL ACCOUNT MANAGER Elise stephenson [facility] CPT-21083 Level 3 Est. Patient 13:35:41 DIGITAL ACCOUNT MANAGER Carlton rich MD [facility] CPT-58687 Level 3 Est. Patient 10:03:52 DIGITAL ACCOUNT MANAGER Carlton rich MD [facility] CPT-41406 Level 3 Est. Patient 12:17:50 CDT Hugo Restrepo MD [facility] CPT-06167 Level 3 Est. Patient 13:42:38 CDT Elise stephenson [facility] CPT-75601 Level 3 Est. Patient 13:23:51 CDT Diya cobian [facility]-05221 Level 3 Est. Patient 14:22:19 DIGITAL ACCOUNT MANAGER Diya cobian [facility] CPT-88680 Level 3 Est. Patient 10:11:46 CDT Carlton rich MD [facility] CPT-12506 Level 3 Est. Patient 17:29:43 CDT Elise Are ll BROADCAST MAINTENANCE TECHNICIAN [facility] CPT-80682 Level 3 Est. Patient 11:58:06 CDT Elise Are ll BROADCAST MAINTENANCE TECHNICIAN [facility] CPT-40945 Level 4 Est. Patient 14:36:51 CDT Carlotn rich MD [facility] CPT-67130 Level 3 Est. Patient 18:16:00 DIGITAL ACCOUNT MANAGER Blaine Freeman [facility] CPT-53612 Level 3 Est. Patient 09:45:49 DIGITAL ACCOUNT MANAGER Carlton rich MD [facility] CPT-36520 Level 3 Est. Patient 13:19:20 CDT Carlton rich MD [facility] CPT-17264 Level 3 Est. Patient 13:06:43 CDT Ridge tam DO [facility] CPT-56481 Level 3 Est. Patient 10:03:07 CDT Perez Mora MD [facility] CPT-98220 Level 3 Est. Patient 19:50:35 DIGITAL ACCOUNT MANAGER Carlton rich MD [facility] CPT-81818 Level 4 Est. Patient 18:05:01 DIGITAL ACCOUNT MANAGER Carlton rich MD [facility] CPT-43389 Level 3 Est. Patient 10:45:55 DIGITAL ACCOUNT MANAGER Hugo Restrepo MD [facility] CPT-43718 Level 3 Est. Patient 14:12:49 CDT Griffin lincoln [facility] CPT-69356 Level 3 Est. Patient 17:37:24 CDT Carlton rich MD [facility] CPT-94758 Level 3 Est. Patient 16:51:54 CDT Carlton rich MD [facility] CPT-78655 Level 3 Est. Patient 12:18:11 CDT Hugo Restrepo MD [facility] CPT-53593 Level 3 Est. Patient 11:30:25 CDT Marcy crisostomo MD PhD [facility] CPT-37026 Level 3 Est. Patient 12:00:47 DIGITAL ACCOUNT MANAGER Carlton rich MD [facility] CPT-78858 Level 3 Est. Patient 16:31:06 DIGITAL ACCOUNT MANAGER Carlton rich MD [facility] CPT-18546 Level 3 Est. Patient 16:23:24 DIGITAL ACCOUNT MANAGER Ridge tam [facility] CPT-04908 Level 3 Est. Patient 12:34:12 CDT Carlton rich MD [facility] CPT-44691 Level 2 Est. Patient 15:43:33 CDT Robi armstrong MD [facility] CPT-31317 Level 4 Est. Patient 14:04:44 CDT Carlton rich MD [facility] CPT-33163 Level 3 Est. Patient 05:47:59 CDT Ridge tam [facility] CPT-37329 Level 3 Est. Patient 13:12:53 DIGITAL ACCOUNT MANAGER Carlton rich MD [facility] CPT-87573 Level 3 Est. Patient 14:26:53 CDT Hugo Restrepo MD [facility] Procedures Code Procedure Name Date Entry Date Standard Desc ription CPT-J1040 Depo Medrol 80 mg (Methyl Prednisolone A cetate) 10:42:44 CDT CPT-J1100 Decadron 8mg (Dexamethasone) 10:42:44 CDT 2 CPT-J0696 Rocephin 1gm Inj Solr 14:32:13 CDT CPT-J1020 Depo Medrol 60 mg (Methyl Prednisolone A cetate) 14:32:13 CDT CPT-J1100 Decadron 6mg (Dexamethasone) 14:32:13 CDT 2 CPT-02883 Hip bilat min 2V w AP pelvis 13:16:20 CDT 2 CPT-45454 Pelvis only 13:07:33 CDT CPT-75498 Spec Collection and Handling Fee 11:25:12 C DT CPT-92563 Fluzone Quadrivalent Intramuscular Suspe nsion 0.5 ML 14:31:55 CDT CPT-85755 Abx/Therapy Injection 13:28:47 DIGITAL ACCOUNT MANAGER CPT-J2930 Solu Medrol 125 mg (Methyl Prednisolone Sodium Succinate) 12:00:47 DIGITAL ACCOUNT MANAGER CPT-89114 Venipuncture Draw Fee 11:33:31 CDT CPT-16659 EKG Trac and Interp 11:21:09 CDT CPT-61920 Chest 2V Frontal and Lat 11:21:09 CDT 12/15 CPT-46933 Venipuncture Draw Fee 08:02:34 CDT CPT-65865 Chest 2V Frontal and Lat 05:47:59 CDT 06/05
--- OUTSIDE RECORDS SUMMARY | 2019-10-08 08:31 | XMS REPORT | Clinical Summary ---
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 FLUTICASONE PRO PIONATE [id number] Active Elise Whitmore APRN Active ZITHROMAX 250 MG TAB 2 po today, then 1 po q days 2-5 AZITHROMYCIN [id number] No Longer Active Elise Whitmore APRN Acti ve XANAX 0.5 MG TABS one tablet by mouth daily prn anxiety ALPRAZOLAM 01505379084 Active Carlton Hu MD Active CYMBALTA 30 MG CPEP 1 cap by mouth daily for depression DULOXETINE HCL 70923373027 Active Carlton Hu MD Active CEFDINIR 300 MG CAPS 1 po BID x 10 days CEFDINI R 40829221667 No Longer Active Carlton Hu MD Active ZOCOR 40 MG TAB 1 tab by mouth daily SIMVASTATI N 57256292374 No Longer Active Carlton Hu MD Active CYCLOBENZAPRINE HCL 10 MG TABS 1 tablet by mouth BID prn had cherelle n CYCLOBENZAPRINE HCL 27917178995 No Longer Active Carlton Hu MD Active LEVOFLOXACIN 500 MG ORAL TABS 1 tab PO daily x 10 days LEVOFLOXACIN 80687953759 No Longer Active Carlton Hu MD Acti ve PREDNISONE 20 MG ORAL TABS 3 tab PO qd x 2d, 2 tab PO qd x 2d, 1 tab PO qd x 2d, 1/2 tab PO qd x 2d PREDNISONE 21599097692 No Longer Active Carlton Hu MD Active TUSSIONEX PENNKINETIC ER 10-8 MG/5ML ORAL LQCR 5 mL PO q 12 hrs PRN cough HYDROCOD POLST-CHLORPHEN POLST 08858473294 Active Elise Whitmore APRN Active FLUTICASONE PROPIONATE 50 MCG/ACT SUSP 1 to 2 sprays each no stril daily FLUTICASONE PROPIONATE 50893756029 No Longer Active T jaz HERNANDEZ Active CHERATUSSIN AC 100-10 MG/5ML SYRP 1 tsp by mouth every 4 hours as needed for cough GUAIFENESIN-CODEINE 73819894193 No Longer Activ e Blaine Freeman PA Active PROMETHAZINE-CODEINE 6.25-10 MG/5ML SYRP 1 tsp by mout h every 6 hours if needed for cough PROMETHAZINE-CODEINE 70968472519 No Long er Active Blaine HERNANDEZ Active CHERATUSSIN AC 100-10 MG/5ML SYRP 1 tsp by mouth every 4 hours as needed for cough GUAIFENESIN-CODEINE 98458561459 No Longer Activ e Blaine HERNANDEZ Active ZITHROMAX Z-REYNA 250 MG TABS 2 today, then 1 daily for 4 days 201 08/30/03 AZITHROMYCIN 48141340333 No Longer Active Columba Raida Act nael ZITHROMAX 250 MG TAB 2 po today, then 1 po q days 2-5 AZITHROMYCIN 12586097872 No Longer Active Carlton Hu MD Acti ve ZITHROMAX Z-REYNA 250 MG TABS 2 today, then 1 daily for 4 days 201 08/07/20 AZITHROMYCIN 60538434322 No Longer Active Columba Raida Act nael AUGMENTIN 875-125 MG TAB 1 po BID x 10 days AMOXICILLIN- POT CLAVULANATE 85526889037 No Longer Active Diya De Guzman APRN Active ZITHROMAX 250 MG TAB 2 po today, then 1 po q days 2-5 AZITHROMYCIN 27496535891 No Longer Active Carlton Hu MD Acti ve TRAMADOL HCL 50 MG TABS 1 po tid with ES Tylenol TRAMADOL HCL 35308603628 Active Carlton Hu MD Active PREMARIN 0.625 MG TABS TAKE 1 TAB BY MOUTH DAILY 07/25 ESTROGENS CONJUGATED 34983693214 No Longer Active Ridge Bess DO Active CYMBALTA 30 MG CPEP 1 cap by mouth daily DULOXE SNEHA HCL 37323168792 No Longer Active Ridge Bess DO Active AMOXICILLIN 500 MG CAP 1 tab by mouth 3 times daily x 10 days 20 14/04/28 AMOXICILLIN 05901476597 No Longer Active Carlton Hu MD Active AMOXICILLIN 500 MG CAP 1 tab by mouth 3 times daily x 10 days 20 13/03/08 AMOXICILLIN 37804821728 No Longer Active Carlton Hu MD Active PROMETHAZINE-CODEINE 6.25-10 MG/5ML SYRP 1 tsp by mouth ever y 8 hours prn cough PROMETHAZINE-CODEINE 37877468137 No Longer Active Robert Hu MD Active MEDROL (REYNA) 4 MG TABS 6 pills x 1 day, then 5 pill s x 1 day then 4 pills x 1 day, then 3 pills x 1 day, then 2 pills x 1 day, then 1 pill x 1 day, then stop METHYLPREDNISOLONE 81548571962 No Longer Active Parris Mora MD Active AZITHROMYCIN 250 MG TABS 2 po qd x 1 day, then 1 po qd x 4 days AZITHROMYCIN 10952740524 No Longer Active Perez Mora MD Active SYMBICORT 160-4.5 MCG/ACT AERO 2 puffs bid with rinse after 2011 BUDESONIDE-FORMOTEROL FUMARATE 49671579362 No Longer Active Perez Mora MD Active LYRICA 75 MG CAPS TAKE 1 CAPSULE BY MOUTH TWICE DAILY 2013 PREGABALIN 89458186172 No Longer Active Carlton Hu MD Active LYRICA 100 MG CAPS Take 1 tab po BID for fibromyalgia PREGABALIN 88182431555 Active Elise Whitmore APRN Active TOPAMAX 25 MG TABS 1 qHS x 1 week, then 1 BID x 1 week, then 1 qAM and 2 qHS x 1 week, then 2 BID (migraine prevention) TOPIRAMAT E 75542851592 No Longer Active Jerica Osei RMA Active TOPAMAX 50 MG TABS take 1 tab po BID for migraines. 12/07/10 TOPIRAMATE 86977590072 No Longer Active Jerica Osei RMA Ac tive TOPAMAX 100 MG TABS Take 1 tablet po bid TOPIRAMATE 4999 4017800 Active Carlton Hu MD Active TRIAMCINOLONE ACETONIDE 0.1 % CREA apply three times daily prn r beatrice TRIAMCINOLONE ACETONIDE 75043165830 No Longer Active Carlton Hu MD Active PAXIL 40 MG TAB take 1 tab po qday for depression PAROXETINE HCL 09339804281 Active Elise Whitmore CAR DUMPER 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 CHERATUSSIN AC 100-10 MG/5ML SYRP 5ml po q6hr PRN Cough GUAIFENESIN-CODEINE 96302386693 No Longer Active Carlton Hu MD Active MEDROL (REYNA) 4 MG TABS 6 tabs on day 1, 5 tabs on d ay 2, 4 tabs on day 3, 3 tabs on day 4, 2 tabs on day 5, 1 tab on day 6 METHYLPREDNISOLONE 93212848536 No Longer Active Perez Mora MD Active AZITHROMYCIN 250 MG TABS 2 po qd x 1 day, then 1 po qd x 4 days AZITHROMYCIN 97817204545 No Longer Active Perez Mora MD Active PROPRANOLOL HCL 60 MG TABS 1 PO Q D PROPRANOL OL HCL 85972458541 No Longer Active Perez Mora MD Active CHERATUSSIN AC 100-10 MG/5ML SYRP take one tsp po Q 6hours prn c ough GUAIFENESIN-CODEINE 53982915866 No Longer Active Perez Means Active AUGMENTIN 875-125 MG TAB 1 tab by mouth twice daily with food 20 12/03/31 AMOXICILLIN-POT CLAVULANATE 93154092366 No Longer Active Chanel Mora MD Active CHERATUSSIN AC 100-10 MG/5ML SYRP 1 tsp by mouth every 4 hours as needed for cough GUAIFENESIN-CODEINE 11765735591 No Longer Activ e Hugo Restrepo MD Active ACETAMINOPHEN-CODEINE #3 300-30 MG TABS 1 PO Q 4-6 HRS PRN PAIN ACETAMINOPHEN-CODEINE 22001548318 No Longer Active Hugo Restrepo MD Active LEVAQUIN 500 MG TABS take one po QD LEVOFLOXACI N 89024337989 No Longer Active Griffin HERNANDEZ Active PREDNISONE 20 MG TAB Take 3 tabs daily for 3 days , 2 tabs daily for 3 days, 1 tab daily for 3 days, 1/2 tab daily for 3 days P REDNISONE 51305218164 No Longer Active Carlton Hu MD Active AVELOX 400 MG TABS 1 tab by mouth daily MOXIFLO XACIN HCL 82029039532 No Longer Active Carlton Hu MD Active CHERATUSSIN AC 100-10 MG/5ML SYRP 1 tsp by mouth every 4 hours as needed for cough GUAIFENESIN-CODEINE 92612388990 No Longer Activ e Hugo Restrepo MD Active AVELOX 400 MG TABS 1 tab by mouth daily MOXIFLO XACIN HCL 61895368155 No Longer Active Marcy De La Rosa MD PhD Active TERBINAFINE HCL 250 MG TABS 1 qDay TERBINAF INE HCL 46550259524 No Longer Active Marcy De La Rosa MD PhD Active CHERATUSSIN AC 100-10 MG/5ML SYRP 1 tsp by mouth every 4 hours as needed for cough GUAIFENESIN-CODEINE 03813494812 No Longer Activ e Marcy De La Rosa MD PhD Active AVELOX 400 MG TABS 1 tab by mouth daily MOXIFLO XACIN HCL 99601537020 No Longer Active Marcy De La Rosa MD PhD Active HYDROCODONE-ACETAMINOPHEN 5-325 MG TABS 1 po q 6hr PRN cough 201 05/09/16 HYDROCODONE-ACETAMINOPHEN 31570120326 No Longer Active Marcy De La Rosa MD PhD Active PREDNISONE 20 MG TAB 2 tabs daily for 3 days, 1 t ab daily for 3 days, 1/2 tab daily for 2 days PREDNISONE 77059407685 No Longer Active Carlton Hu MD Active CEFDINIR 300 MG CAPS by mouth twice a day CEFDI ODILIA 52694600916 No Longer Active Carlton Hu MD Active HYDROCHLOROTHIAZIDE 25 MG TABS 1 TAB PO DAILY H YDROCHLOROTHIAZIDE 26032917936 Active Carlton Hu MD Active ACETAMINOPHEN-CODEINE #3 300-30 MG TABS 1 tablet po q 4-6hrs prn pain ACETAMINOPHEN-CODEINE 69951059480 No Longer Active Ridge Bess DO Active ZITHROMAX 250 MG TAB 2 po today, then 1 po q days 2-5 AZITHROMYCIN 72577202719 No Longer Active Carlton Hu MD Acti ve CHERATUSSIN AC 100-10 MG/5ML SYRP take 1 tsp po q4-6 hours prn c ough GUAIFENESIN-CODEINE 26104374390 No Longer Active Carlton Hu MD Active ACETAMINOPHEN-CODEINE #3 300-30 MG TABS 1 PO Q 4-6 HR PRN PAIN 2 ACETAMINOPHEN-CODEINE 90453719746 No Longer Active Carlton rich MD Active LORTAB 7.5-500 MG/15ML ELIX 7.5 ml po q 4 hour prn cough HYDROCODONE-ACETAMINOPHEN 48585762466 No Longer Active Carlton Hu MD Active PREDNISONE 20 MG TAB 1 po bid 3 days, then 1 po q day 3 days 201 05/03/07 PREDNISONE 67608236359 No Longer Active Carlton Hu MD Active ELMIRON 100 MG CAPS 2 tablets in the am and 1 tablet at hs PENTOSAN POLYSULFATE SODIUM 63698129398 Active Carlton Hu MD Ac tive CEFDINIR 300 MG CAPS by mouth twice a day CEFDI ODILIA 30060534447 No Longer Active Carlton Hu MD Active CEFDINIR 300 MG CAPS by mouth twice a day CEFDI ODILIA 78877134960 No Longer Active Carlton Hu MD Active CEFDINIR 300 MG CAPS by mouth twice a day CEFDI ODILIA 67342140583 No Longer Active Carlton Hu MD Active TESSALON PERLES 100 MG CAP 1 tablet by mouth 3 times daily a s needed for cough BENZONATATE 95962026685 No Longer Active Carlton bustamante MD Active CEFDINIR 300 MG CAPS by mouth twice a day CEFDI ODILIA 46673363858 No Longer Active Carlton Hu MD Active ZITHROMAX Z-REYNA 250 MG TABS 2 today, then 1 daily for 4 days 201 04/09/17 AZITHROMYCIN 20486974081 No Longer Active Hugo Restrepo MD Active TESSALON PERLES 100 MG CAP 1 tablet by mouth 3 times daily a s needed for cough TESSALON PERLES 100 MG CAP 872619 BENZONATATE I nactive PREDNISONE 20 MG TAB 1 po bid 3 days, then 1 po q day 3 days 201 05/03/07 PREDNISONE 20 MG TAB 126051 PREDNISONE Inactive LORTAB 7.5-500 MG/15ML ELIX 7.5 ml po q 4 hour prn cough LORTAB 7.5-500 MG/15ML ELIX HYDROCODONE-ACETAMINOPHEN Inacti ve ACETAMINOPHEN-CODEINE #3 300-30 MG TABS 1 PO Q 4-6 HR PRN PAIN 2 ACETAMINOPHEN-CODEINE #3 300-30 MG TABS 197466 ACETAMIN OPHEN-CODEINE Inactive CHERATUSSIN AC 100-10 MG/5ML SYRP take 1 tsp po q4-6 hours prn c ough CHERATUSSIN AC 100-10 MG/5ML SYRP 857243 GUAIFENESIN-CO DEINE Inactive ACETAMINOPHEN-CODEINE #3 300-30 MG TABS 1 tablet po q 4-6hrs prn pain ACETAMINOPHEN-CODEINE #3 300-30 MG TABS 286027 ACETAMIN OPHEN-CODEINE Inactive HYDROCODONE-ACETAMINOPHEN 5-325 MG TABS 1 po q 6hr PRN cough 201 05/09/16 HYDROCODONE-ACETAMINOPHEN 5-325 MG TABS 274630 HYDROCODONE-ACETAMINOPHEN Inactive AVELOX 400 MG TABS 1 tab by mouth daily A VELOX 400 MG TABS 297428 MOXIFLOXACIN HCL Inactive CHERATUSSIN AC 100-10 MG/5ML SYRP 1 tsp by mouth every 4 hours as needed for cough CHERATUSSIN AC 100-10 MG/5ML SYRP 927314 GUAIFENESIN-CODEINE Inactive TERBINAFINE HCL 250 MG TABS 1 qDay TERBINAFINE HCL 250 MG TABS 986937 TERBINAFINE HCL Inactive CHERATUSSIN AC 100-10 MG/5ML SYRP 1 tsp by mouth every 4 hours as needed for cough CHERATUSSIN AC 100-10 MG/5ML SYRP 587237 GUAIFENESIN-CODEINE Inactive ACETAMINOPHEN-CODEINE #3 300-30 MG TABS 1 PO Q 4-6 HRS PRN PAIN ACETAMINOPHEN-CODEINE #3 300-30 MG TABS 434316 ACETAMINOPHEN-CODEIN E Inactive CHERATUSSIN AC 100-10 MG/5ML SYRP 1 tsp by mouth every 4 hours as needed for cough CHERATUSSIN AC 100-10 MG/5ML SYRP 945795 GUAIFENESIN-CODEINE Inactive AUGMENTIN 875-125 MG TAB 1 tab by mouth twice daily with food 20 12/03/31 AUGMENTIN 875-125 MG TAB 106682 AMOXICILLIN-POT CLAVULA EFE Inactive CHERATUSSIN AC 100-10 MG/5ML SYRP take one tsp po Q 6hours prn c ough CHERATUSSIN AC 100-10 MG/5ML SYRP 557394 GUAIFENESIN-CO DEINE Inactive PROPRANOLOL HCL 60 MG TABS 1 PO Q D P ROPRANOLOL HCL 60 MG TABS 599283 PROPRANOLOL HCL Inactive TOPAMAX 50 MG TABS take 1 tab po BID for migraines. 12/07/10 TOPAMAX 50 MG TABS 085733 TOPIRAMATE Inactive TOPAMAX 25 MG TABS 1 qHS x 1 week, then 1 BID x 1 week, then 1 qAM and 2 qHS x 1 week, then 2 BID (migraine prevention) TOPAMAX 2 5 MG TABS 110654 TOPIRAMATE Inactive LYRICA 75 MG CAPS TAKE 1 CAPSULE BY MOUTH TWICE DAILY LYRICA 75 MG CAPS PREGABALIN Inactive SYMBICORT 160-4.5 MCG/ACT AERO 2 puffs bid with rinse after 2011 SYMBICORT 160-4.5 MCG/ACT AERO BUDESONIDE-FORMOT SÁNCHEZ FUMARATE Inactive PROMETHAZINE-CODEINE 6.25-10 MG/5ML SYRP 1 tsp by mouth ever y 8 hours prn cough PROMETHAZINE-CODEINE 6.25-10 MG/5ML SYRP 501711 PROMETHAZINE-CODEINE Inactive CYMBALTA 30 MG CPEP 1 cap by mouth daily CYMBALTA 30 MG CPEP 166404 DULOXETINE HCL Inactive PREMARIN 0.625 MG TABS TAKE 1 TAB BY MOUTH DAILY 07/25 PREMARIN 0.625 MG TABS ESTROGENS CONJUGATED Inactive CHERATUSSIN AC 100-10 MG/5ML SYRP 1 tsp by mouth every 4 hours as needed for cough CHERATUSSIN AC 100-10 MG/5ML SYRP 058523 GUAIFENESIN-CODEINE Inactive PROMETHAZINE-CODEINE 6.25-10 MG/5ML SYRP 1 tsp by mout h every 6 hours if needed for cough PROMETHAZINE-CODEINE 6.25-10 MG/5ML SYRP 093473 PROMETHAZINE-CODEINE Inactive CHERATUSSIN AC 100-10 MG/5ML SYRP 1 tsp by mouth every 4 hours as needed for cough CHERATUSSIN AC 100-10 MG/5ML SYRP 714523 GUAIFENESIN-CODEINE Inactive FLUTICASONE PROPIONATE 50 MCG/ACT SUSP 1 to 2 sprays each no stril daily FLUTICASONE PROPIONATE 50 MCG/ACT SUSP 295193 FLUTICASONE PROPIONATE Inactive PREDNISONE 20 MG ORAL TABS 3 tab PO qd x 2d, 2 tab PO qd x 2d, 1 tab PO qd x 2d, 1/2 tab PO qd x 2d PREDNISONE 20 MG ORAL TABS 326351 PREDNISONE Inactive LEVOFLOXACIN 500 MG ORAL TABS 1 tab PO daily x 10 days LEVOFLOXACIN 500 MG ORAL TABS 331890 LEVOFLOXACIN Inactive CYCLOBENZAPRINE HCL 10 MG TABS 1 tablet by mouth BID prn had cherelle n CYCLOBENZAPRINE HCL 10 MG TABS 619235 CYCLOBENZAPRINE H CL Inactive ZOCOR 40 MG TAB 1 tab by mouth daily ZOCOR 40 M G TAB 399491 SIMVASTATIN Inactive ZITHROMAX Z-REYNA 250 MG TABS 2 today, then 1 daily for 4 days 201 04/09/17 ZITHROMAX Z-REYNA 250 MG TABS 6807547 AZITHROMYCIN Inac tive CEFDINIR 300 MG CAPS [...] q days 2-5 ZITHROMAX 250 MG TAB 9014915 AZITHROMYCIN Inactive CEFDINIR 300 MG CAPS by mouth twice a day CEFDINIR 300 MG CAPS 089005 CEFDINIR Inactive PREDNISONE 20 MG TAB 2 tabs daily for 3 days, 1 t ab daily for 3 days, 1/2 tab daily for 2 days PREDNISONE 20 MG TAB 158395 PREDNISON E Inactive AVELOX 400 MG TABS 1 tab by mouth daily A VELOX 400 MG TABS 433952 MOXIFLOXACIN HCL Inactive AVELOX 400 MG TABS 1 tab by mouth daily A VELOX 400 MG TABS 993334 MOXIFLOXACIN HCL Inactive PREDNISONE 20 MG TAB Take 3 tabs daily for 3 days , 2 tabs daily for 3 days, 1 tab daily for 3 days, 1/2 tab daily for 3 days PREDNISONE 20 MG TAB 903019 PREDNISONE Inactive LEVAQUIN 500 MG TABS take one po QD LEVAQUIN 50 0 MG TABS 053142 LEVOFLOXACIN Inactive AZITHROMYCIN 250 MG TABS 2 po qd x 1 day, then 1 po qd x 4 days AZITHROMYCIN 250 MG TABS 3442973 AZITHROMYCIN Inactiv e MEDROL (REYNA) 4 MG TABS 6 tabs on day 1, 5 tabs on d ay 2, 4 tabs on day 3, 3 tabs on day 4, 2 tabs on day 5, 1 tab on day 6 MEDROL (REYNA) 4 MG TABS 570509 METHYLPREDNISOLONE Inactive CHERATUSSIN AC 100-10 MG/5ML SYRP 5ml po q6hr PRN Cough CHERATUSSIN AC 100-10 MG/5ML SYRP 049104 GUAIFENESIN-CODEINE Inacti ve TRIAMCINOLONE ACETONIDE 0.1 % CREA apply three times daily prn r beatrice TRIAMCINOLONE ACETONIDE 0.1 % CREA 0950002 TRIAMCINOLONE ACETONIDE Inactive AZITHROMYCIN 250 MG TABS 2 po qd x 1 day, then 1 po qd x 4 days AZITHROMYCIN 250 MG TABS 1492224 AZITHROMYCIN Inactiv e MEDROL (REYNA) 4 MG TABS 6 pills x 1 day, then 5 pill s x 1 day then 4 pills x 1 day, then 3 pills x 1 day, then 2 pills x 1 day, then 1 pill x 1 day, then stop MEDROL (REYNA) 4 MG TABS 713418 METHYLPREDNISOLONE Inactive AMOXICILLIN 500 MG CAP 1 tab by mouth 3 times daily x 10 days 20 13/03/08 AMOXICILLIN 500 MG CAP 446261 AMOXICILLIN Inactive AMOXICILLIN 500 MG CAP 1 tab by mouth 3 times daily x 10 days 20 14/04/28 AMOXICILLIN 500 MG CAP 258464 AMOXICILLIN Inactive ZITHROMAX 250 MG TAB 2 po today, then 1 po q days 2-5 ZITHROMAX 250 MG TAB 7444063 AZITHROMYCIN Inactive AUGMENTIN 875-125 MG TAB 1 po BID x 10 days AUGMENTIN 875- 125 MG TAB 640438 AMOXICILLIN-POT CLAVULANATE Inactive ZITHROMAX Z-REYNA 250 MG TABS 2 today, then 1 daily for 4 days 201 08/07/20 ZITHROMAX Z-REYNA 250 MG TABS 0215190 AZITHROMYCIN Inac tive ZITHROMAX 250 MG TAB 2 po today, then 1 po q days 2-5 ZITHROMAX 250 MG TAB 2233269 AZITHROMYCIN Inactive ZITHROMAX Z-REYNA 250 MG TABS 2 today, then 1 daily for 4 days 201 08/30/03 ZITHROMAX Z-REYNA 250 MG TABS 8072008 AZITHROMYCIN Inac tive CEFDINIR 300 MG CAPS 1 po BID x 10 days C EFDINIR 300 MG CAPS 677342 CEFDINIR Inactive ZITHROMAX 250 MG TAB 2 po today, then 1 po q days 2-5 ZITHROMAX 250 MG TAB 8264947 AZITHROMYCIN Inactive Vital Signs Date Name Value Unit Range Description blood pressure, diastolic - 8462-4 73 mm[Hg] [...] Measured Encounters Code Encounter Date Provider Facility CPT-92806 Level 3 Est. Patient 11:58:06 CDT Elise Cesar chelly RICEN [facility] CPT-71805 Level 4 Est. Patient 14:36:51 CDT Carlton rich MD [facility]-28089 Level 3 Est. Patient 18:16:00 BULK SUGAR HANDLER Blaine Freeman [facility] CPT-57180 Level 3 Est. Patient 09:45:49 BULK SUGAR HANDLER Carlton rich MD [facility]-77021 Level 3 Est. Patient 13:19:20 CDT Carlton rich MD [facility] CPT-73221 Level 3 Est. Patient 13:06:43 CDT Ridge tam DO [facility] CPT-09687 Level 3 Est. Patient 10:03:07 CDT Perez Mora MD [facility] CPT-41257 Level 3 Est. Patient 19:50:35 BULK SUGAR HANDLER Carlton rich MD [facility] CPT-12043 Level 4 Est. Patient 18:05:01 BULK SUGAR HANDLER Carlton rich MD [facility] CPT-36932 Level 3 Est. Patient 10:45:55 BULK SUGAR HANDLER Hugo Restrepo MD [facility] CPT-70958 Level 3 Est. Patient 14:12:49 CDT Griffin lincoln [facility]-92987 Level 3 Est. Patient 17:37:24 CDT Carlton rich MD [facility] CPT-99705 Level 3 Est. Patient 16:51:54 CDT Carlton rich MD [facility] CPT-10035 Level 3 Est. Patient 12:18:11 CDT Hugo Restrepo MD [facility] CPT-11971 Level 3 Est. Patient 11:30:25 CDT Marcy crisostomo MD PhD [facility] CPT-81359 Level 3 Est. Patient 12:00:47 BULK SUGAR HANDLER Carlton rich MD [facility] CPT-25541 Level 3 Est. Patient 16:31:06 BULK SUGAR HANDLER Carlton rich MD [facility] CPT-77845 Level 3 Est. Patient 16:23:24 BULK SUGAR HANDLER Ridge tam [facility] CPT-93237 Level 3 Est. Patient 12:34:12 CDT Carlton rich MD [facility] CPT-16439 Level 2 Est. Patient 15:43:33 CDT Robi armstrong MD [facility] CPT-77456 Level 4 Est. Patient 14:04:44 CDT Carlton rich MD [facility] CPT-15006 Level 3 Est. Patient 05:47:59 CDT Ridge tam [facility] CPT-12932 Level 3 Est. 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 Patient 14:26:53 CDT Hugo Restrepo MD [facility] Procedures Code Procedure Name Date Entry Date Standard Desc ription CPT-J0696 Rocephin 1gm Inj Solr 14:32:13 CDT CPT-J1020 Depo Medrol 60 mg (Methyl Prednisolone A cetate) 14:32:13 CDT CPT-J1100 Decadron 6mg (Dexamethasone) 14:32:13 CDT 2 CPT-18945 Hip bilat min 2V w AP pelvis 13:16:20 CDT 2 CPT-22195 Pelvis only 13:07:33 CDT CPT-37372 Spec Collection and Handling Fee 11:25:12 C DT CPT-39491 Fluzone Quadrivalent Intramuscular Suspe nsion 0.5 ML 14:31:55 CDT CPT-02469 Abx/Therapy Injection 13:28:47 BULK SUGAR HANDLER CPT-J2930 Solu Medrol 125 mg (Methyl Prednisolone Sodium Succinate) 12:00:47 BULK SUGAR HANDLER CPT-60697 Venipuncture Draw Fee 11:33:31 CDT CPT-68520 EKG Trac and Interp 11:21:09 CDT CPT-48810 Chest 2V Frontal and Lat 11:21:09 CDT 12/15 CPT-25713 Venipuncture Draw Fee 08:02:34 CDT CPT-11439 Chest 2V Frontal and Lat 05:47:59 CDT 06/05
--- OUTSIDE RECORDS SUMMARY | 2019-10-08 08:32 | XMS REPORT | Clinical Summary ---
Author Author Caitlin, Juliana Martinez Organization [facility] Address Unknown Phone Unavailable Allergies, Adverse Reactions, [...] unspecified CHEST WALL PAIN, ACUTE 786.52 Resolved Lvi De La Rosa MD PhD Painful respiration [...] then 1 po q days 2-5 AZITHROMYCIN [id number] No Longer Active Carlton Hu MD Acti ve TRAMADOL HCL 50 MG TABS 1 po tid with ES Tylenol TRAMADOL HCL 42375011979 Active Ridge Bess DO Active PREMARIN 0.625 MG TABS TAKE 1 TAB BY MOUTH DAILY 07/25 ESTROGENS CONJUGATED 05135709785 No Longer Active Ridge Bess DO Active CYMBALTA 30 MG CPEP 1 cap by mouth daily DULOXE SNEHA HCL 79789696605 No Longer Active Ridge Bess DO Active AMOXICILLIN 500 MG CAP 1 tab by mouth 3 times daily x 10 days 20 14/04/28 AMOXICILLIN 77265863264 No Longer Active Carlton Hu MD Active AMOXICILLIN 500 MG CAP 1 tab by mouth 3 times daily x 10 days 20 13/03/08 AMOXICILLIN 96385840766 No Longer Active Carlton Hu MD Active CHERATUSSIN AC 100-10 MG/5ML SYRP 1 tsp by mouth every 4 hours as needed for cough GUAIFENESIN-CODEINE 75190789911 Active Carlton banks MD Active CYCLOBENZAPRINE HCL 10 MG TABS 1 tablet by mouth BID prn had pain 2 CYCLOBENZAPRINE HCL 66477239149 Active Carlton Hu MD A ctive PROMETHAZINE-CODEINE 6.25-10 MG/5ML SYRP 1 tsp by mouth ever y 8 hours prn cough PROMETHAZINE-CODEINE 33536628520 No Longer Active Robert Hu MD Active MEDROL (REYNA) 4 MG TABS 6 pills x 1 day, then 5 pill s x 1 day then 4 pills x 1 day, then 3 pills x 1 day, then 2 pills x 1 day, then 1 pill x 1 day, then stop METHYLPREDNISOLONE 24832712415 No Longer Active Parrsi Mroa MD Active AZITHROMYCIN 250 MG TABS 2 po qd x 1 day, then 1 po qd x 4 days AZITHROMYCIN 45555679546 No Longer Active Perez Mora MD Active SYMBICORT 160-4.5 MCG/ACT AERO 2 puffs bid with rinse after 2011 BUDESONIDE-FORMOTEROL FUMARATE 35992609386 No Longer Active Perez Mora MD Active LYRICA 75 MG CAPS TAKE 1 CAPSULE BY MOUTH TWICE DAILY 2013 PREGABALIN 83415460610 No Longer Active Carlton Hu MD Active LYRICA 100 MG CAPS Take 1 tab po BID for fibromyalgia PREGABALIN 36076671090 Active Carlton Hu MD Active TOPAMAX 25 MG TABS 1 qHS x 1 week, then 1 BID x 1 week, then 1 qAM and 2 qHS x 1 week, then 2 BID (migraine prevention) TOPIRAMAT E 24319959185 No Longer Active Jerica AGUILARA Active TOPAMAX 50 MG TABS take 1 tab po BID for migraines. 12/07/10 TOPIRAMATE 12622470411 No Longer Active Jerica Osei RMA Ac tive TOPAMAX 100 MG TABS Take 1 tablet po bid TOPIRAMATE 4999 5110487 Active Carlton Hu MD Active TRIAMCINOLONE ACETONIDE 0.1 % CREA apply three times daily prn r beatrice TRIAMCINOLONE ACETONIDE 82918445436 No Longer Active Carlton Hu MD Active PAXIL 40 MG TAB take 1 tab po qday for depression PAROXETINE HCL 32949133681 Active Carlton Hu MD Active CHERATUSSIN AC 100-10 MG/5ML SYRP 5ml po q6hr PRN Cough GUAIFENESIN-CODEINE 18281826496 No Longer Active Carlton Hu MD Active MEDROL (REYNA) 4 MG TABS 6 tabs on day 1, 5 tabs on d ay 2, 4 tabs on day 3, 3 tabs on day 4, 2 tabs on day 5, 1 tab on day 6 METHYLPREDNISOLONE 30404636329 No Longer Active Perez Mora MD Active AZITHROMYCIN 250 MG TABS 2 po qd x 1 day, then 1 po qd x 4 days AZITHROMYCIN 31755751769 No Longer Active Perez Mora MD Active PROPRANOLOL HCL 60 MG TABS 1 PO Q D PROPRANOL OL HCL 63747522333 No Longer Active Perez Mora MD Active CHERATUSSIN AC 100-10 MG/5ML SYRP take one tsp po Q 6hours prn c ough GUAIFENESIN-CODEINE 57832666142 No Longer Active Perez Means Active AUGMENTIN 875-125 MG TAB 1 tab by mouth twice daily with food 20 12/03/31 AMOXICILLIN-POT CLAVULANATE 20856523204 No Longer Active Chanel Mora MD Active CHERATUSSIN AC 100-10 MG/5ML SYRP 1 tsp by mouth every 4 hours as needed for cough GUAIFENESIN-CODEINE 31166830296 No Longer Activ e Hugo Restrepo MD Active ACETAMINOPHEN-CODEINE #3 300-30 MG TABS 1 PO Q 4-6 HRS PRN PAIN ACETAMINOPHEN-CODEINE 34774779829 No Longer Active Hugo Restrepo MD Active LEVAQUIN 500 MG TABS take one po QD LEVOFLOXACI N 29592143749 No Longer Active Griffin HERNANDEZ Active PREDNISONE 20 MG TAB Take 3 tabs daily for 3 days , 2 tabs daily for 3 days, 1 tab daily for 3 days, 1/2 tab daily for 3 days P REDNISONE 89491327123 No Longer Active Carlton Hu MD Active AVELOX 400 MG TABS 1 tab by mouth daily MOXIFLO XACIN HCL 66308975936 No Longer Active Carlton Hu MD Active CHERATUSSIN AC 100-10 MG/5ML SYRP 1 tsp by mouth every 4 hours as needed for cough GUAIFENESIN-CODEINE 40334617323 No Longer Activ e Hugo Restrepo MD Active AVELOX 400 MG TABS 1 tab by mouth daily MOXIFLO XACIN HCL 38778465543 No Longer Active Marcy De La Rosa MD PhD Active TERBINAFINE HCL 250 MG TABS 1 qDay TERBINAF INE HCL 95091759359 No Longer Active Marcy De La Rosa MD PhD Active CHERATUSSIN AC 100-10 MG/5ML SYRP 1 tsp by mouth every 4 hours as needed for cough GUAIFENESIN-CODEINE 28068324232 No Longer Activ e Marcy De La Rosa MD PhD Active AVELOX 400 MG TABS 1 tab by mouth daily MOXIFLO XACIN HCL 80703273994 No Longer Active Marcy De La Rosa MD PhD Active HYDROCODONE-ACETAMINOPHEN 5-325 MG TABS 1 po q 6hr PRN cough 201 05/09/16 HYDROCODONE-ACETAMINOPHEN 09523838772 No Longer Active Marcy De La Rosa MD PhD Active PREDNISONE 20 MG TAB 2 tabs daily for 3 days, 1 t ab daily for 3 days, 1/2 tab daily for 2 days PREDNISONE 36707950119 No Longer Active Carlton Hu MD Active CEFDINIR 300 MG CAPS by mouth twice a day CEFDI ODILIA 13316331064 No Longer Active Carlton Hu MD Active ZOCOR 40 MG TAB 1 tab by mouth daily SIMVASTATIN 42878314147 Active Carlton Hu MD Active HYDROCHLOROTHIAZIDE 25 MG TABS 1 TAB PO DAILY H YDROCHLOROTHIAZIDE 68744449603 Active Carlton Hu MD Active ACETAMINOPHEN-CODEINE #3 300-30 MG TABS 1 tablet po q 4-6hrs prn pain ACETAMINOPHEN-CODEINE 68131629139 No Longer Active Ridge Bess DO Active ZITHROMAX 250 MG TAB 2 po today, then 1 po q days 2-5 AZITHROMYCIN 17036419437 No Longer Active Carlton Hu MD Acti ve CHERATUSSIN AC 100-10 MG/5ML SYRP take 1 tsp po q4-6 hours prn c ough GUAIFENESIN-CODEINE 82177629763 No Longer Active Carlton Hu MD Active ACETAMINOPHEN-CODEINE #3 300-30 MG TABS 1 PO Q 4-6 HR PRN PAIN 2 ACETAMINOPHEN-CODEINE 47577320518 No Longer Active Carlton rich MD Active LORTAB 7.5-500 MG/15ML ELIX 7.5 ml po q 4 hour prn cough HYDROCODONE-ACETAMINOPHEN 32871970727 No Longer Active Carlton Hu MD Active PREDNISONE 20 MG TAB 1 po bid 3 days, then 1 po q day 3 days 201 05/03/07 PREDNISONE 72819943401 No Longer Active Carlton Hu MD Active ELMIRON 100 MG CAPS 2 tablets in the am and 1 tablet at hs PENTOSAN POLYSULFATE SODIUM 86970424266 Active Gracie Peacearger Active CEFDINIR 300 MG CAPS by mouth twice a day CEFDI ODILIA 10773340807 No Longer Active Carlton Hu MD Active CEFDINIR 300 MG CAPS by mouth twice a day CEFDI ODILIA 85047531071 No Longer Active Carlton Hu MD Active CEFDINIR 300 MG CAPS by mouth twice a day CEFDI ODILIA 63919792449 No Longer Active Carlton Hu MD Active TESSALON PERLES 100 MG CAP 1 tablet by mouth 3 times daily a s needed for cough BENZONATATE 62112830729 No Longer Active Carlton bustamante MD Active CEFDINIR 300 MG CAPS by mouth twice a day CEFDI ODILIA 71479508727 No Longer Active Carlton Hu MD Active ZITHROMAX Z-REYNA 250 MG TABS 2 today, then 1 daily for 4 days 201 04/09/17 AZITHROMYCIN 14329877843 No Longer Active Hugo Restrepo MD Active TESSALON PERLES 100 MG CAP 1 tablet by mouth 3 times daily a s needed for cough TESSALON PERLES 100 MG CAP 245161 BENZONATATE I nactive PREDNISONE 20 MG TAB 1 po bid 3 days, then 1 po q day 3 days 201 05/03/07 PREDNISONE 20 MG TAB 224215 PREDNISONE Inactive LORTAB 7.5-500 MG/15ML ELIX 7.5 ml po q 4 hour prn cough LORTAB 7.5-500 MG/15ML ELIX HYDROCODONE-ACETAMINOPHEN Inacti ve ACETAMINOPHEN-CODEINE #3 300-30 MG TABS 1 PO Q 4-6 HR PRN PAIN 2 ACETAMINOPHEN-CODEINE #3 300-30 MG TABS 697740 ACETAMIN OPHEN-CODEINE Inactive CHERATUSSIN AC 100-10 MG/5ML SYRP take 1 tsp po q4-6 hours prn c ough CHERATUSSIN AC 100-10 MG/5ML SYRP 801055 GUAIFENESIN-CO DEINE Inactive ACETAMINOPHEN-CODEINE #3 300-30 MG TABS 1 tablet po q 4-6hrs prn pain ACETAMINOPHEN-CODEINE #3 300-30 MG TABS 239916 ACETAMIN OPHEN-CODEINE Inactive HYDROCODONE-ACETAMINOPHEN 5-325 MG TABS 1 po q 6hr PRN cough 201 05/09/16 HYDROCODONE-ACETAMINOPHEN 5-325 MG TABS 310610 HYDROCODONE-ACETAMINOPHEN Inactive AVELOX 400 MG TABS 1 tab by mouth daily A VELOX 400 MG TABS 265173 MOXIFLOXACIN HCL Inactive CHERATUSSIN AC 100-10 MG/5ML SYRP 1 tsp by mouth every 4 hours as needed for cough CHERATUSSIN AC 100-10 MG/5ML SYRP 671741 GUAIFENESIN-CODEINE Inactive TERBINAFINE HCL 250 MG TABS 1 qDay TERBINAFINE HCL 250 MG TABS 314672 TERBINAFINE HCL Inactive CHERATUSSIN AC 100-10 MG/5ML SYRP 1 tsp by mouth every 4 hours as needed for cough CHERATUSSIN AC 100-10 MG/5ML SYRP 036801 GUAIFENESIN-CODEINE Inactive ACETAMINOPHEN-CODEINE #3 300-30 MG TABS 1 PO Q 4-6 HRS PRN PAIN ACETAMINOPHEN-CODEINE #3 300-30 MG TABS 548005 ACETAMINOPHEN-CODEIN E Inactive CHERATUSSIN AC 100-10 MG/5ML SYRP 1 tsp by mouth every 4 hours as needed for cough CHERATUSSIN AC 100-10 MG/5ML SYRP 566221 GUAIFENESIN-CODEINE Inactive AUGMENTIN 875-125 MG TAB 1 tab by mouth twice daily with food 20 12/03/31 AUGMENTIN 875-125 MG TAB 468668 AMOXICILLIN-POT CLAVULA EFE Inactive CHERATUSSIN AC 100-10 MG/5ML SYRP take one tsp po Q 6hours prn c ough CHERATUSSIN AC 100-10 MG/5ML SYRP 018438 GUAIFENESIN-CO DEINE Inactive PROPRANOLOL HCL 60 MG TABS 1 PO Q D P ROPRANOLOL HCL 60 MG TABS 923944 PROPRANOLOL HCL Inactive TOPAMAX 50 MG TABS take 1 tab po BID for migraines. 12/07/10 TOPAMAX 50 MG TABS 959658 TOPIRAMATE Inactive TOPAMAX 25 MG TABS 1 qHS x 1 week, then 1 BID x 1 week, then 1 qAM and 2 qHS x 1 week, then 2 BID (migraine prevention) TOPAMAX 2 5 MG TABS 717223 TOPIRAMATE Inactive LYRICA 75 MG CAPS TAKE 1 CAPSULE BY MOUTH TWICE DAILY LYRICA 75 MG CAPS PREGABALIN Inactive SYMBICORT 160-4.5 MCG/ACT AERO 2 puffs bid with rinse after 2011 SYMBICORT 160-4.5 MCG/ACT AERO BUDESONIDE-FORMOT SÁNCHEZ FUMARATE Inactive PROMETHAZINE-CODEINE 6.25-10 MG/5ML SYRP 1 tsp by mouth ever y 8 hours prn cough PROMETHAZINE-CODEINE 6.25-10 MG/5ML SYRP 447171 PROMETHAZINE-CODEINE Inactive CYMBALTA 30 MG CPEP 1 cap by mouth daily CYMBALTA 30 MG CPEP 397089 DULOXETINE HCL Inactive PREMARIN 0.625 MG TABS TAKE 1 TAB BY MOUTH DAILY 07/25 PREMARIN 0.625 MG TABS ESTROGENS CONJUGATED Inactive ZITHROMAX Z-REYNA 250 MG TABS 2 today, then 1 daily for 4 days 201 04/09/17 ZITHROMAX Z-REYNA 250 MG TABS 4692656 AZITHROMYCIN Inac tive CEFDINIR 300 MG CAPS [...] q days 2-5 ZITHROMAX 250 MG TAB 5664950 AZITHROMYCIN Inactive CEFDINIR 300 MG CAPS by mouth twice a day CEFDINIR 300 MG CAPS 20020704 CEFDINIR Inactive PREDNISONE 20 MG TAB 2 tabs daily for 3 days, 1 t ab daily for 3 days, 1/2 tab daily for 2 days PREDNISONE 20 MG TAB 975150 PREDNISON E Inactive AVELOX 400 MG TABS 1 tab by mouth daily A VELOX 400 MG TABS 820129 MOXIFLOXACIN HCL Inactive AVELOX 400 MG TABS 1 tab by mouth daily A VELOX 400 MG TABS 496200 MOXIFLOXACIN HCL Inactive PREDNISONE 20 MG TAB Take 3 tabs daily for 3 days , 2 tabs daily for 3 days, 1 tab daily for 3 days, 1/2 tab daily for 3 days PREDNISONE 20 MG TAB 018829 PREDNISONE Inactive LEVAQUIN 500 MG TABS take one po QD LEVAQUIN 50 0 MG TABS 389981 LEVOFLOXACIN Inactive AZITHROMYCIN 250 MG TABS 2 po qd x 1 day, then 1 po qd x 4 days AZITHROMYCIN 250 MG TABS 6913787 AZITHROMYCIN Inactiv e MEDROL (REYNA) 4 MG TABS 6 tabs on day 1, 5 tabs on d ay 2, 4 tabs on day 3, 3 tabs on day 4, 2 tabs on day 5, 1 tab on day 6 MEDROL (REYNA) 4 MG TABS METHYLPREDNISOLONE Inactive CHERATUSSIN AC 100-10 MG/5ML SYRP 5ml po q6hr PRN Cough CHERATUSSIN AC 100-10 MG/5ML SYRP 385006 GUAIFENESIN-CODEINE Inacti ve TRIAMCINOLONE ACETONIDE 0.1 % CREA apply three times daily prn r beatrice TRIAMCINOLONE ACETONIDE 0.1 % CREA 1136768 TRIAMCINOLONE ACETONIDE Inactive AZITHROMYCIN 250 MG TABS 2 po qd x 1 day, then 1 po qd x 4 days AZITHROMYCIN 250 MG TABS 5628505 AZITHROMYCIN Inactiv e MEDROL (REYNA) 4 MG [...] days 20 13/03/08 AMOXICILLIN 500 MG CAP 326528 AMOXICILLIN Inactive AMOXICILLIN 500 MG CAP 1 tab by mouth 3 times daily x 10 days 20 14/04/28 AMOXICILLIN 500 MG CAP 394310 AMOXICILLIN Inactive ZITHROMAX 250 MG TAB 2 po today, then 1 po q days 2-5 ZITHROMAX 250 MG TAB 5463425 AZITHROMYCIN Inactive Vital Signs Date Name Value [...] [phone] Encounters Code Encounter Date Provider Facility CPT-99738 Level 3 Est. Patient 13:19:20 CDT Carlton rich MD [facility]-01077 Level 3 Est. Patient 13:06:43 CDT Ridge tam DO [facility] CPT-33544 Level 3 Est. Patient 10:03:07 CDT Perez Mora MD [facility]-55495 Level 3 Est. Patient 19:50:35 TECH ED/[employer] Carlton rich MD [facility]-33638 Level 4 Est. Patient 18:05:01 TECH ED/[employer] Carlton rich MD [facility]-24005 Level 3 Est. Patient 10:45:55 TECH ED/[employer] Hugo Restrepo MD [facility]-91972 Level 3 Est. Patient 14:12:49 CDT Griffin HERNANDEZ [facility]-75674 Level 3 Est. Patient 17:37:24 CDT Carlton rich MD [facility]-44503 Level 3 Est. Patient 16:51:54 CDT Carlton rich MD [facility]-72896 Level 3 Est. Patient 12:18:11 CDT Hugo Restrepo MD [facility]-58217 Level 3 Est. Patient 11:30:25 CDT Marcy crisostomo MD PhD [facility]-05494 Level 3 Est. Patient 12:00:47 TECH ED/[employer] Carlton rich MD [facility]-60267 Level 3 Est. Patient 16:31:06 TECH ED/[employer] Carlton rich MD [facility] CPT-52035 Level 3 Est. Patient 16:23:24 TECH ED/[employer] TE[employer]ER Ridge tam [facility] CPT-69980 Level 3 Est. Patient 12:34:12 CDT Carlton rich MD [facility] CPT-51963 Level 2 Est. Patient 15:43:33 CDT Robi armstrong MD [facility] CPT-88406 Level 4 Est. Patient 14:04:44 CDT Carlton rich MD [facility] CPT-81799 Level 3 Est. Patient 05:47:59 CDT Ridge tam [facility] CPT-50014 Level 3 Est. Patient 13:12:53 TECH ED/[employer] Carlton rich MD [facility] CPT-14470 Level 3 Est. Patient 14:26:53 CDT Hugo Restrepo MD [facility] Procedures Code Procedure Name Date Entry Date Standard Desc ription CPT-42766 Hip bilat min 2V w AP pelvis 13:16:20 CDT 2 CPT-77154 Pelvis only 13:07:33 CDT CPT-67595 Spec Collection and Handling Fee 11:25:12 C DT CPT-11347 Fluzone Quadrivalent Intramuscular Suspe nsion 0.5 ML 14:31:55 CDT CPT-50159 Abx/Therapy Injection 13:28:47 TECH ED/[employer] CPT-J2930 Solu Medrol 125 mg (Methyl Prednisolone Sodium Succinate) 12:00:47 TECH ED/[employer] TE[employer] CPT-31754 Venipuncture Draw Fee 11:33:31 CDT CPT-02681 EKG Trac and Interp 11:21:09 CDT CPT-81734 Chest 2V Frontal and Lat 11:21:09 CDT 12/15 CPT-24730 Venipuncture Draw Fee 08:02:34 CDT CPT-23319 Chest 2V Frontal and Lat 05:47:59 CDT 06/05
--- OUTSIDE RECORDS SUMMARY | 2019-10-08 08:32 | XMS REPORT | Clinical Summary ---
Author Author Caitlin, Juliana Martinez Organization [facility] Address Unknown Phone Unavailable Allergies, Adverse [...] respiration PNEUMONIA 486 Resolved Marcy De La oRsa MD PhD Pneumonia, organism unspecified SINUSITIS 473.9 [...] then 1 po q days 2-5 AZITHROMYCIN 01532647234 No Longer Active Carlton Hu MD Acti ve TRAMADOL HCL 50 MG TABS 1 po tid with ES Tylenol TRAMADOL HCL 87467464625 Active Ridge Bess DO Active PREMARIN 0.625 MG TABS TAKE 1 TAB BY MOUTH DAILY 07/25 ESTROGENS CONJUGATED 48326531977 No Longer Active Ridge Bess DO Active CYMBALTA 30 MG CPEP 1 cap by mouth daily DULOXE SNEHA HCL 89682836767 No Longer Active Ridge Bess DO Active AMOXICILLIN 500 MG CAP 1 tab by mouth 3 times daily x 10 days 20 14/04/28 AMOXICILLIN 80461013426 No Longer Active Carlton Hu MD Active AMOXICILLIN 500 MG CAP 1 tab by mouth 3 times daily x 10 days 20 13/03/08 AMOXICILLIN 30147656105 No Longer Active Carlton Hu MD Active CHERATUSSIN AC 100-10 MG/5ML SYRP 1 tsp by mouth every 4 hours as needed for cough GUAIFENESIN-CODEINE 16707235949 Active Carlton banks MD Active CYCLOBENZAPRINE HCL 10 MG TABS 1 tablet by mouth BID prn had pain 2 CYCLOBENZAPRINE HCL 98962364093 Active Carlton Hu MD A ctive PROMETHAZINE-CODEINE 6.25-10 MG/5ML SYRP 1 tsp by mouth ever y 8 hours prn cough PROMETHAZINE-CODEINE 85318963850 No Longer Active Robert Hu MD Active MEDROL (REYNA) 4 MG TABS 6 pills x 1 day, then 5 pill s x 1 day then 4 pills x 1 day, then 3 pills x 1 day, then 2 pills x 1 day, then 1 pill x 1 day, then stop METHYLPREDNISOLONE 82147649045 No Longer Active Parris Mora MD Active AZITHROMYCIN 250 MG TABS 2 po qd x 1 day, then 1 po qd x 4 days AZITHROMYCIN 59906864271 No Longer Active Perez Mora MD Active SYMBICORT 160-4.5 MCG/ACT AERO 2 puffs bid with rinse after 2011 BUDESONIDE-FORMOTEROL FUMARATE 51889033154 No Longer Active Perez Mora MD Active LYRICA 75 MG CAPS TAKE 1 CAPSULE BY MOUTH TWICE DAILY 2013 PREGABALIN 63508924650 No Longer Active Carlton Hu MD Active LYRICA 100 MG CAPS Take 1 tab po BID for fibromyalgia PREGABALIN 84932531814 Active Carlton Hu MD Active TOPAMAX 25 MG TABS 1 qHS x 1 week, then 1 BID x 1 week, then 1 qAM and 2 qHS x 1 week, then 2 BID (migraine prevention) TOPIRAMAT E 67956709525 No Longer Active Jerica AGUILARA Active TOPAMAX 50 MG TABS take 1 tab po BID for migraines. 12/07/10 TOPIRAMATE 30514259087 No Longer Active Jerica Osei RMA Ac tive TOPAMAX 100 MG TABS Take 1 tablet po bid TOPIRAMATE 4999 2580450 Active Carlton Hu MD Active TRIAMCINOLONE ACETONIDE 0.1 % CREA apply three times daily prn r beatrice TRIAMCINOLONE ACETONIDE 71089715258 No Longer Active Carlton Hu MD Active PAXIL 40 MG TAB take 1 tab po qday for depression PAROXETINE HCL 62490417461 Active Carlton Hu MD Active CHERATUSSIN AC 100-10 MG/5ML SYRP 5ml po q6hr PRN Cough GUAIFENESIN-CODEINE 67724879959 No Longer Active Carlton Hu MD Active MEDROL (REYNA) 4 MG TABS 6 tabs on day 1, 5 tabs on d ay 2, 4 tabs on day 3, 3 tabs on day 4, 2 tabs on day 5, 1 tab on day 6 METHYLPREDNISOLONE 73589198785 No Longer Active Perez Mora MD Active AZITHROMYCIN 250 MG TABS 2 po qd x 1 day, then 1 po qd x 4 days AZITHROMYCIN 05589101249 No Longer Active Perez Mora MD Active PROPRANOLOL HCL 60 MG TABS 1 PO Q D PROPRANOL OL HCL 42833636118 No Longer Active Perez Mora MD Active CHERATUSSIN AC 100-10 MG/5ML SYRP take one tsp po Q 6hours prn c ough GUAIFENESIN-CODEINE 90287706232 No Longer Active Perez Means Active AUGMENTIN 875-125 MG TAB 1 tab by mouth twice daily with food 20 12/03/31 AMOXICILLIN-POT CLAVULANATE 85914847882 No Longer Active Chanel Mora MD Active CHERATUSSIN AC 100-10 MG/5ML SYRP 1 tsp by mouth every 4 hours as needed for cough GUAIFENESIN-CODEINE 45298128145 No Longer Activ e Hugo Restrepo MD Active ACETAMINOPHEN-CODEINE #3 300-30 MG TABS 1 PO Q 4-6 HRS PRN PAIN ACETAMINOPHEN-CODEINE 83456057164 No Longer Active Hugo Restrepo MD Active LEVAQUIN 500 MG TABS take one po QD LEVOFLOXACI N 18827239617 No Longer Active Griffin HERNANDEZ Active PREDNISONE 20 MG TAB Take 3 tabs daily for 3 days , 2 tabs daily for 3 days, 1 tab daily for 3 days, 1/2 tab daily for 3 days P REDNISONE 58511395534 No Longer Active Carlton Hu MD Active AVELOX 400 MG TABS 1 tab by mouth daily MOXIFLO XACIN HCL 86498686596 No Longer Active Carlton Hu MD Active CHERATUSSIN AC 100-10 MG/5ML SYRP 1 tsp by mouth every 4 hours as needed for cough GUAIFENESIN-CODEINE 31540973331 No Longer Activ e Hugo Restrepo MD Active AVELOX 400 MG TABS 1 tab by mouth daily MOXIFLO XACIN HCL 44350172366 No Longer Active Marcy De La Rosa MD PhD Active TERBINAFINE HCL 250 MG TABS 1 qDay TERBINAF INE HCL 95430996052 No Longer Active Marcy De La Rosa MD PhD Active CHERATUSSIN AC 100-10 MG/5ML SYRP 1 tsp by mouth every 4 hours as needed for cough GUAIFENESIN-CODEINE 33173349631 No Longer Activ e Marcy De La Rosa MD PhD Active AVELOX 400 MG TABS 1 tab by mouth daily MOXIFLO XACIN HCL 79064757895 No Longer Active Mracy De La Rosa MD PhD Active HYDROCODONE-ACETAMINOPHEN 5-325 MG TABS 1 po q 6hr PRN cough 201 05/09/16 HYDROCODONE-ACETAMINOPHEN 56053075245 No Longer Active Marcy De La Rosa MD PhD Active PREDNISONE 20 MG TAB 2 tabs daily for 3 days, 1 t ab daily for 3 days, 1/2 tab daily for 2 days PREDNISONE 56696844882 No Longer Active Carlton Hu MD Active CEFDINIR 300 MG CAPS by mouth twice a day CEFDI ODILIA 33538473709 No Longer Active Carlton Hu MD Active ZOCOR 40 MG TAB 1 tab by mouth daily SIMVASTATIN 93998576000 Active Carlton Hu MD Active HYDROCHLOROTHIAZIDE 25 MG TABS 1 TAB PO DAILY H YDROCHLOROTHIAZIDE 61287959139 Active Carlton Hu MD Active ACETAMINOPHEN-CODEINE #3 300-30 MG TABS 1 tablet po q 4-6hrs prn pain ACETAMINOPHEN-CODEINE 70902393077 No Longer Active Ridge Bess DO Active ZITHROMAX 250 MG TAB 2 po today, then 1 po q days 2-5 AZITHROMYCIN 06586703351 No Longer Active Carlton Hu MD Acti ve CHERATUSSIN AC 100-10 MG/5ML SYRP take 1 tsp po q4-6 hours prn c ough GUAIFENESIN-CODEINE 67573165900 No Longer Active Carlton Hu MD Active ACETAMINOPHEN-CODEINE #3 300-30 MG TABS 1 PO Q 4-6 HR PRN PAIN 2 ACETAMINOPHEN-CODEINE 18478909085 No Longer Active Carlton rich MD Active LORTAB 7.5-500 MG/15ML ELIX 7.5 ml po q 4 hour prn cough HYDROCODONE-ACETAMINOPHEN 70513625252 No Longer Active Carlton Hu MD Active PREDNISONE 20 MG TAB 1 po bid 3 days, then 1 po q day 3 days 201 05/03/07 PREDNISONE 64372181002 No Longer Active Carlton Hu MD Active ELMIRON 100 MG CAPS 2 tablets in the am and 1 tablet at hs PENTOSAN POLYSULFATE SODIUM 87738011615 Active Gracie Peacearger Active CEFDINIR 300 MG CAPS by mouth twice a day CEFDI ODILIA 89435047033 No Longer Active Carlton Hu MD Active CEFDINIR 300 MG CAPS by mouth twice a day CEFDI ODILIA 97471436844 No Longer Active Carlton Hu MD Active CEFDINIR 300 MG CAPS by mouth twice a day CEFDI ODILIA 10889607680 No Longer Active Carlton Hu MD Active TESSALON PERLES 100 MG CAP 1 tablet by mouth 3 times daily a s needed for cough BENZONATATE 90185889746 No Longer Active Carlton bustamante MD Active CEFDINIR 300 MG CAPS by mouth twice a day CEFDI ODILIA 92725076636 No Longer Active Carlton Hu MD Active ZITHROMAX Z-REYNA 250 MG TABS 2 today, then 1 daily for 4 days 201 04/09/17 AZITHROMYCIN 67718493923 No Longer Active Huog Restrepo MD Active TESSALON PERLES 100 MG CAP 1 tablet by mouth 3 times daily a s needed for cough TESSALON PERLES 100 MG CAP 013267 BENZONATATE I nactive PREDNISONE 20 MG TAB 1 po bid 3 days, then 1 po q day 3 days 201 05/03/07 PREDNISONE 20 MG TAB 235601 PREDNISONE Inactive LORTAB 7.5-500 MG/15ML ELIX 7.5 ml po q 4 hour prn cough LORTAB 7.5-500 MG/15ML ELIX HYDROCODONE-ACETAMINOPHEN Inacti ve ACETAMINOPHEN-CODEINE #3 300-30 MG TABS 1 PO Q 4-6 HR PRN PAIN 2 ACETAMINOPHEN-CODEINE #3 300-30 MG TABS 990687 ACETAMIN OPHEN-CODEINE Inactive CHERATUSSIN AC 100-10 MG/5ML SYRP take 1 tsp po q4-6 hours prn c ough CHERATUSSIN AC 100-10 MG/5ML SYRP 123853 GUAIFENESIN-CO DEINE Inactive ACETAMINOPHEN-CODEINE #3 300-30 MG TABS 1 tablet po q 4-6hrs prn pain ACETAMINOPHEN-CODEINE #3 300-30 MG TABS 829489 ACETAMIN OPHEN-CODEINE Inactive HYDROCODONE-ACETAMINOPHEN 5-325 MG TABS 1 po q 6hr PRN cough 201 05/09/16 HYDROCODONE-ACETAMINOPHEN 5-325 MG TABS 263171 HYDROCODONE-ACETAMINOPHEN Inactive AVELOX 400 MG TABS 1 tab by mouth daily A VELOX 400 MG TABS 046766 MOXIFLOXACIN HCL Inactive CHERATUSSIN AC 100-10 MG/5ML SYRP 1 tsp by mouth every 4 hours as needed for cough CHERATUSSIN AC 100-10 MG/5ML SYRP 728053 GUAIFENESIN-CODEINE Inactive TERBINAFINE HCL 250 MG TABS 1 qDay TERBINAFINE HCL 250 MG TABS 936066 TERBINAFINE HCL Inactive CHERATUSSIN AC 100-10 MG/5ML SYRP 1 tsp by mouth every 4 hours as needed for cough CHERATUSSIN AC 100-10 MG/5ML SYRP 054032 GUAIFENESIN-CODEINE Inactive ACETAMINOPHEN-CODEINE #3 300-30 MG TABS 1 PO Q 4-6 HRS PRN PAIN ACETAMINOPHEN-CODEINE #3 300-30 MG TABS 580889 ACETAMINOPHEN-CODEIN E Inactive CHERATUSSIN AC 100-10 MG/5ML SYRP 1 tsp by mouth every 4 hours as needed for cough CHERATUSSIN AC 100-10 MG/5ML SYRP 641652 GUAIFENESIN-CODEINE Inactive AUGMENTIN 875-125 MG TAB 1 tab by mouth twice daily with food 20 12/03/31 AUGMENTIN 875-125 MG TAB 819850 AMOXICILLIN-POT CLAVULA EFE Inactive CHERATUSSIN AC 100-10 MG/5ML SYRP take one tsp po Q 6hours prn c ough CHERATUSSIN AC 100-10 MG/5ML SYRP 100558 GUAIFENESIN-CO DEINE Inactive PROPRANOLOL HCL 60 MG TABS 1 PO Q D P ROPRANOLOL HCL 60 MG TABS 668452 PROPRANOLOL HCL Inactive TOPAMAX 50 MG TABS take 1 tab po BID for migraines. 12/07/10 TOPAMAX 50 MG TABS 388508 TOPIRAMATE Inactive TOPAMAX 25 MG TABS 1 qHS x 1 week, then 1 BID x 1 week, then 1 qAM and 2 qHS x 1 week, then 2 BID (migraine prevention) TOPAMAX 2 5 MG TABS 304413 TOPIRAMATE Inactive LYRICA 75 MG CAPS TAKE 1 CAPSULE BY MOUTH TWICE DAILY LYRICA 75 MG CAPS PREGABALIN Inactive SYMBICORT 160-4.5 MCG/ACT AERO 2 puffs bid with rinse after 2011 SYMBICORT 160-4.5 MCG/ACT AERO BUDESONIDE-FORMOT SÁNCHEZ FUMARATE Inactive PROMETHAZINE-CODEINE 6.25-10 MG/5ML SYRP 1 tsp by mouth ever y 8 hours prn cough PROMETHAZINE-CODEINE 6.25-10 MG/5ML SYRP 571701 PROMETHAZINE-CODEINE Inactive CYMBALTA 30 MG CPEP 1 cap by mouth daily CYMBALTA 30 MG CPEP 418735 DULOXETINE HCL Inactive PREMARIN 0.625 MG TABS TAKE 1 TAB BY MOUTH DAILY 07/25 PREMARIN 0.625 MG TABS ESTROGENS CONJUGATED Inactive ZITHROMAX Z-REYNA 250 MG TABS 2 today, then 1 daily for 4 days 201 04/09/17 ZITHROMAX Z-REYNA 250 MG TABS 3612787 AZITHROMYCIN Inac tive CEFDINIR 300 MG CAPS [...] q days 2-5 ZITHROMAX 250 MG TAB 1755455 AZITHROMYCIN Inactive CEFDINIR 300 MG CAPS by mouth twice a day CEFDINIR 300 MG CAPS 20020704 CEFDINIR Inactive PREDNISONE 20 MG TAB 2 tabs daily for 3 days, 1 t ab daily for 3 days, 1/2 tab daily for 2 days PREDNISONE 20 MG TAB 619603 PREDNISON E Inactive AVELOX 400 MG TABS 1 tab by mouth daily A VELOX 400 MG TABS 231496 MOXIFLOXACIN HCL Inactive AVELOX 400 MG TABS 1 tab by mouth daily A VELOX 400 MG TABS 105064 MOXIFLOXACIN HCL Inactive PREDNISONE 20 MG TAB Take 3 tabs daily for 3 days , 2 tabs daily for 3 days, 1 tab daily for 3 days, 1/2 tab daily for 3 days PREDNISONE 20 MG TAB 270015 PREDNISONE Inactive LEVAQUIN 500 MG TABS take one po QD LEVAQUIN 50 0 MG TABS 877088 LEVOFLOXACIN Inactive AZITHROMYCIN 250 MG TABS 2 po qd x 1 day, then 1 po qd x 4 days AZITHROMYCIN 250 MG TABS 2739396 AZITHROMYCIN Inactiv e MEDROL (REYNA) 4 MG TABS 6 tabs on day 1, 5 tabs on d ay 2, 4 tabs on day 3, 3 tabs on day 4, 2 tabs on day 5, 1 tab on day 6 MEDROL (REYNA) 4 MG TABS METHYLPREDNISOLONE Inactive CHERATUSSIN AC 100-10 MG/5ML SYRP 5ml po q6hr PRN Cough CHERATUSSIN AC 100-10 MG/5ML SYRP 906036 GUAIFENESIN-CODEINE Inacti ve TRIAMCINOLONE ACETONIDE 0.1 % CREA apply three times daily prn r beatrice TRIAMCINOLONE ACETONIDE 0.1 % CREA 7832062 TRIAMCINOLONE ACETONIDE Inactive AZITHROMYCIN 250 MG TABS 2 po qd x 1 day, then 1 po qd x 4 days AZITHROMYCIN 250 MG TABS 1801636 AZITHROMYCIN Inactiv e MEDROL (REYNA) 4 MG [...] days 20 13/03/08 AMOXICILLIN 500 MG CAP 748741 AMOXICILLIN Inactive AMOXICILLIN 500 MG CAP 1 tab by mouth 3 times daily x 10 days 20 14/04/28 AMOXICILLIN 500 MG CAP 851214 AMOXICILLIN Inactive ZITHROMAX 250 MG TAB 2 po today, then 1 po q days 2-5 ZITHROMAX 250 MG TAB 0463545 AZITHROMYCIN Inactive Vital Signs Date Name Value [...] [phone] Encounters Code Encounter Date Provider Facility CPT-52928 Level 3 Est. Patient 13:19:20 CDT Cralton rich MD [facility]-69536 Level 3 Est. Patient 13:06:43 CDT Ridge tam DO [facility] CPT-27991 Level 3 Est. Patient 10:03:07 CDT Perez Mora MD [facility]-49629 Level 3 Est. Patient 19:50:35 MOGUL OPERATOR Carlton rich MD [facility]-50634 Level 4 Est. Patient 18:05:01 MOGUL OPERATOR Carlton rich MD [facility]-06053 Level 3 Est. Patient 10:45:55 MOGUL OPERATOR Hugo Restrepo MD [facility]-42446 Level 3 Est. Patient 14:12:49 CDT Griffin HERNANDEZ [facility]-39292 Level 3 Est. Patient 17:37:24 CDT Carlton rich MD [facility]-04430 Level 3 Est. Patient 16:51:54 CDT Carlton rich MD [facility]-95951 Level 3 Est. Patient 12:18:11 CDT Hugo Restrepo MD [facility]-47954 Level 3 Est. Patient 11:30:25 CDT Marcy crisostomo MD PhD [facility]-15040 Level 3 Est. Patient 12:00:47 MOGUL OPERATOR Carlton rich MD [facility]-63305 Level 3 Est. Patient 16:31:06 MOGUL OPERATOR Carlton rich MD [facility] CPT-08120 Level 3 Est. Patient 16:23:24 MOGUL OPERATOR Ridge tam [facility] CPT-14473 Level 3 Est. Patient 12:34:12 CDT Carlton rich MD [facility] CPT-35099 Level 2 Est. Patient 15:43:33 CDT Robi armstrong MD [facility] CPT-41389 Level 4 Est. Patient 14:04:44 CDT Carlton rich MD [facility] CPT-34273 Level 3 Est. Patient 05:47:59 CDT Ridge tam [facility] CPT-32976 Level 3 Est. Patient 13:12:53 MOGUL OPERATOR Carlton rich MD [facility] CPT-27156 Level 3 Est. Patient 14:26:53 CDT Hugo Restrepo MD [facility] Procedures Code Procedure Name Date Entry Date Standard Desc ription CPT-68006 Hip bilat min 2V w AP pelvis 13:16:20 CDT 2 CPT-18961 Pelvis only 13:07:33 CDT CPT-28945 Spec Collection and Handling Fee 11:25:12 C DT CPT-33886 Fluzone Quadrivalent Intramuscular Suspe nsion 0.5 ML 14:31:55 CDT CPT-45266 Abx/Therapy Injection 13:28:47 MOGUL OPERATOR CPT-J2930 Solu Medrol 125 mg (Methyl Prednisolone Sodium Succinate) 12:00:47 MOGUL OPERATOR CPT-17912 Venipuncture Draw Fee 11:33:31 CDT CPT-75624 EKG Trac and Interp 11:21:09 CDT CPT-78139 Chest 2V Frontal and Lat 11:21:09 CDT 12/15 CPT-00202 Venipuncture Draw Fee 08:02:34 CDT CPT-23152 Chest 2V Frontal and Lat 05:47:59 CDT 06/05
--- OUTSIDE RECORDS SUMMARY | 2019-10-08 08:32 | XMS REPORT | Clinical Summary ---
Author Author Caitlin, Juliana Martinez Organization [facility] Address Unknown Phone Unavailable Allergies, [...] sites Sinusitis 473.9 Active Diya De Guzman DIRECTOR OF OUTREACH Unspecified sinusitis (chronic) Bronchitis-Acute 466.0 Active Carlton Hu MD Acute bronchitis URI - acute 465.9 Active Elise Whitmore DIRECTOR OF OUTREACH Acute upper respiratory infections of unspecified site Pharyngitis acute 462 Active Elise Whitmore A PRN Acute pharyngitis Rhinitis, acute 460 Active Elise Whitmore APR N Acute nasopharyngitis [common cold] Sinusitis 473.9 Active Diya De Guzman DIRECTOR OF OUTREACH Unspecified sinusitis (chronic) BRONCHITIS ICD-490 Inactive Hugo [...] Provider Patient Instruction MUCINEX D 60-600 MG [id number] 1 tab po q am PSEUDOEPHEDRINE-GUAIFENESIN [id number] Active Jillina Frazell DIRECTOR OF OUTREACH Active PREDNISONE 20 MG TAB 2 tabs daily for 3 days, 1 t ab daily for 3 days, 1/2 tab daily for 2 days PREDNISONE 27344821382 Active Jillina Frazell DIRECTOR OF OUTREACH Active TUSSIONEX PENNKINETIC ER 10-8 MG/5ML LQCR 5ml po q12hr PRN Cough 20 16/04/29 HYDROCOD POLST-CHLORPHEN POLST 80909394127 Active Jillina Frazell DIRECTOR OF OUTREACH Active AMOXICILLIN 500 MG CAPS 2 po BID x 10 days AMOX ICILLIN 92875209985 Active Venullina Cesarl DIRECTOR OF OUTREACH Active SINGULAIR 10 MG TABS 1 po qday for allergies 2 MONTELUKAST SODIUM 41569394071 No Longer Active Carlton Hu MD Acti ve LEVAQUIN 500 MG TAB 1 tablet by mouth daily LEV OFLOXACIN 44651880814 No Longer Active Carlton Hu MD Active FLUTICASONE PROPIONATE 50 MCG/ACT SUSP 2 sprays each n ostril daily for 2 weeks, then 1 spray each nostril daily. FLUTICASONE PRO PIONATE 76031624842 Active Elise Whitmore APRN Active ZITHROMAX 250 MG TAB 2 po today, then 1 po q days 2-5 AZITHROMYCIN 01086674809 No Longer Active Elise Whitmore APRN Acti ve XANAX 0.5 MG TABS one tablet by mouth daily prn anxiety ALPRAZOLAM 53511315196 Active Elise Whitmore APRN Active CYMBALTA 30 MG CPEP 1 cap by mouth daily for depression DULOXETINE HCL 87399027614 Active Carlton Hu MD Active CEFDINIR 300 MG CAPS 1 po BID x 10 days CEFDINI R 07296870384 No Longer Active Carlton Hu MD Active ZOCOR 40 MG TAB 1 tab by mouth daily SIMVASTATI N 24989267923 No Longer Active Carlton Hu MD Active CYCLOBENZAPRINE HCL 10 MG TABS 1 tablet by mouth BID prn had cherelle n CYCLOBENZAPRINE HCL 56775150745 No Longer Active Carlton Hu MD Active LEVOFLOXACIN 500 MG ORAL TABS 1 tab PO daily x 10 days LEVOFLOXACIN 16516852870 No Longer Active Carlton Hu MD Acti ve PREDNISONE 20 MG ORAL TABS 3 tab PO qd x 2d, 2 tab PO qd x 2d, 1 tab PO qd x 2d, 1/2 tab PO qd x 2d PREDNISONE 02313215747 No Longer Active Carlton Hu MD Active TUSSIONEX PENNKINETIC ER 10-8 MG/5ML ORAL LQCR 5 mL PO q 12 hrs PRN cough HYDROCOD POLST-CHLORPHEN POLST 05345867934 Active Carlton Hu MD Active FLUTICASONE PROPIONATE 50 MCG/ACT SUSP 1 to 2 sprays each no stril daily FLUTICASONE PROPIONATE 93867016280 No Longer Active T jaz HERNANDEZ Active CHERATUSSIN AC 100-10 MG/5ML SYRP 1 tsp by mouth every 4 hours as needed for cough GUAIFENESIN-CODEINE 77897846719 No Longer Activ e Blaine HERNANDEZ Active PROMETHAZINE-CODEINE 6.25-10 MG/5ML SYRP 1 tsp by mout h every 6 hours if needed for cough PROMETHAZINE-CODEINE 00781768525 No Long er Active Blaine HERNANDEZ Active CHERATUSSIN AC 100-10 MG/5ML SYRP 1 tsp by mouth every 4 hours as needed for cough GUAIFENESIN-CODEINE 60531788559 No Longer Activ Jorge Luis HERNANDEZ Active ZITHROMAX Z-REYNA 250 MG TABS 2 today, then 1 daily for 4 days 201 08/30/03 AZITHROMYCIN 96368368834 No Longer Active Columba Raida Act nael ZITHROMAX 250 MG TAB 2 po today, then 1 po q days 2-5 AZITHROMYCIN 25794574142 No Longer Active Carlton Hu MD Acti ve ZITHROMAX Z-REYNA 250 MG TABS 2 today, then 1 daily for 4 days 201 08/07/20 AZITHROMYCIN 02138677356 No Longer Active Columba Raida Act nael AUGMENTIN 875-125 MG TAB 1 po BID x 10 days AMOXICILLIN- POT CLAVULANATE 29690267422 No Longer Active Diya De Guzman APRN Active ZITHROMAX 250 MG TAB 2 po today, then 1 po q days 2-5 AZITHROMYCIN 06355856608 No Longer Active Carlton Hu MD Acti ve TRAMADOL HCL 50 MG TABS 1 po tid with ES Tylenol TRAMADOL HCL 40431034714 Active Carlton Hu MD Active PREMARIN 0.625 MG TABS TAKE 1 TAB BY MOUTH DAILY 07/25 ESTROGENS CONJUGATED 61741187778 No Longer Active Ridge Bess DO Active CYMBALTA 30 MG CPEP 1 cap by mouth daily DULOXE SNEHA HCL 90091267702 No Longer Active Ridge Bess DO Active AMOXICILLIN 500 MG CAP 1 tab by mouth 3 times daily x 10 days 20 14/04/28 AMOXICILLIN 60140502746 No Longer Active Carlton Hu MD Active AMOXICILLIN 500 MG CAP 1 tab by mouth 3 times daily x 10 days 20 13/03/08 AMOXICILLIN 95952147317 No Longer Active Carlton Hu MD Active PROMETHAZINE-CODEINE 6.25-10 MG/5ML SYRP 1 tsp by mouth ever y 8 hours prn cough PROMETHAZINE-CODEINE 90906664802 No Longer Active Robert Hu MD Active MEDROL (REYNA) 4 MG TABS 6 pills x 1 day, then 5 pill s x 1 day then 4 pills x 1 day, then 3 pills x 1 day, then 2 pills x 1 day, then 1 pill x 1 day, then stop METHYLPREDNISOLONE 25910328796 No Longer Active Parris Mora MD Active AZITHROMYCIN 250 MG TABS 2 po qd x 1 day, then 1 po qd x 4 days AZITHROMYCIN 03644873245 No Longer Active Perez Mora MD Active SYMBICORT 160-4.5 MCG/ACT AERO 2 puffs bid with rinse after 2011 BUDESONIDE-FORMOTEROL FUMARATE 35763146185 No Longer Active Perez Mora MD Active LYRICA 75 MG CAPS TAKE 1 CAPSULE BY MOUTH TWICE DAILY 2013 PREGABALIN 58824910117 No Longer Active Carlton Hu MD Active LYRICA 100 MG CAPS Take 1 tab po BID for fibromyalgia PREGABALIN 83838398639 Active Elise Whitmore APRN Active TOPAMAX 25 MG TABS 1 qHS x 1 week, then 1 BID x 1 week, then 1 qAM and 2 qHS x 1 week, then 2 BID (migraine prevention) TOPIRAMAT E 67775509586 No Longer Active Jerica Goeringer RMA Active TOPAMAX 50 MG TABS take 1 tab po BID for migraines. 12/07/10 TOPIRAMATE 95424969471 No Longer Active Jerica Goeringer RMA Ac tive TOPAMAX 100 MG TABS Take 1 tablet po bid TOPIRAMATE 4999 0621928 Active Elise Whitmore APRN Active TRIAMCINOLONE ACETONIDE 0.1 % CREA apply three times daily prn r beatrice TRIAMCINOLONE ACETONIDE 18800964599 No Longer Active Carlton Hu MD Active PAXIL 40 MG TAB take 1 tab po qday for depression PAROXETINE HCL 68585516673 Active Elise Whitmore APRN Active CHERATUSSIN AC 100-10 MG/5ML SYRP 5ml po q6hr PRN Cough GUAIFENESIN-CODEINE 13241197305 No Longer Active Carlton Hu MD Active MEDROL (REYNA) 4 MG TABS 6 tabs on day 1, 5 tabs on d ay 2, 4 tabs on day 3, 3 tabs on day 4, 2 tabs on day 5, 1 tab on day 6 METHYLPREDNISOLONE 55353114492 No Longer Active Perez Mora MD Active AZITHROMYCIN 250 MG TABS 2 po qd x 1 day, then 1 po qd x 4 days AZITHROMYCIN 62011623987 No Longer Active Perez Mora MD Active PROPRANOLOL HCL 60 MG TABS 1 PO Q D PROPRANOL OL HCL 79294435182 No Longer Active Perez Mora MD Active CHERATUSSIN AC 100-10 MG/5ML SYRP take one tsp po Q 6hours prn c ough GUAIFENESIN-CODEINE 19214236042 No Longer Active Perez Means Active AUGMENTIN 875-125 MG TAB 1 tab by mouth twice daily with food 20 12/03/31 AMOXICILLIN-POT CLAVULANATE 45432739456 No Longer Active Chanel Mora MD Active CHERATUSSIN AC 100-10 MG/5ML SYRP 1 tsp by mouth every 4 hours as needed for cough GUAIFENESIN-CODEINE 72615547407 No Longer Activ e Hugo Restrepo MD Active ACETAMINOPHEN-CODEINE #3 300-30 MG TABS 1 PO Q 4-6 HRS PRN PAIN ACETAMINOPHEN-CODEINE 29694552622 No Longer Active Hugo Restrepo MD Active LEVAQUIN 500 MG TABS take one po QD LEVOFLOXACI N 05741684491 No Longer Active Griffin HERNANDEZ Active PREDNISONE 20 MG TAB Take 3 tabs daily for 3 days , 2 tabs daily for 3 days, 1 tab daily for 3 days, 1/2 tab daily for 3 days P REDNISONE 31088983052 No Longer Active Carlton Hu MD Active AVELOX 400 MG TABS 1 tab by mouth daily MOXIFLO XACIN HCL 97780651796 No Longer Active Carlton Hu MD Active CHERATUSSIN AC 100-10 MG/5ML SYRP 1 tsp by mouth every 4 hours as needed for cough GUAIFENESIN-CODEINE 53508649821 No Longer Activ e Hugo Restrepo MD Active AVELOX 400 MG TABS 1 tab by mouth daily MOXIFLO XACIN HCL 43622209754 No Longer Active Marcy De La Rosa MD PhD Active TERBINAFINE HCL 250 MG TABS 1 qDay TERBINAF INE HCL 38344854525 No Longer Active Marcy De La Rosa MD PhD Active CHERATUSSIN AC 100-10 MG/5ML SYRP 1 tsp by mouth every 4 hours as needed for cough GUAIFENESIN-CODEINE 18296236666 No Longer Activ e Marcy De La Rosa MD PhD Active AVELOX 400 MG TABS 1 tab by mouth daily MOXIFLO XACIN HCL 39632952433 No Longer Active Marcy De La Rosa MD PhD Active HYDROCODONE-ACETAMINOPHEN 5-325 MG TABS 1 po q 6hr PRN cough 201 05/09/16 HYDROCODONE-ACETAMINOPHEN 92066012011 No Longer Active Marcy De La Rosa MD PhD Active PREDNISONE 20 MG TAB 2 tabs daily for 3 days, 1 t ab daily for 3 days, 1/2 tab daily for 2 days PREDNISONE 83104559829 No Longer Active Carlton Hu MD Active CEFDINIR 300 MG CAPS by mouth twice a day CEFDI ODILIA 07938245573 No Longer Active Carlton Hu MD Active HYDROCHLOROTHIAZIDE 25 MG TABS 1 TAB PO DAILY H YDROCHLOROTHIAZIDE 76278046307 Active Carlton Hu MD Active ACETAMINOPHEN-CODEINE #3 300-30 MG TABS 1 tablet po q 4-6hrs prn pain ACETAMINOPHEN-CODEINE 17312369141 No Longer Active Ridge Bess DO Active ZITHROMAX 250 MG TAB 2 po today, then 1 po q days 2-5 AZITHROMYCIN 52408716243 No Longer Active Carlton Hu MD Acti ve CHERATUSSIN AC 100-10 MG/5ML SYRP take 1 tsp po q4-6 hours prn c ough GUAIFENESIN-CODEINE 38269994036 No Longer Active Carlton Hu MD Active ACETAMINOPHEN-CODEINE #3 300-30 MG TABS 1 PO Q 4-6 HR PRN PAIN 2 ACETAMINOPHEN-CODEINE 24644383209 No Longer Active Carlton rich MD Active LORTAB 7.5-500 MG/15ML ELIX 7.5 ml po q 4 hour prn cough HYDROCODONE-ACETAMINOPHEN 47140927041 No Longer Active Carlton Hu MD Active PREDNISONE 20 MG TAB 1 po bid 3 days, then 1 po q day 3 days 201 05/03/07 PREDNISONE 24478744331 No Longer Active Carlton Hu MD Active ELMIRON 100 MG CAPS 2 tablets in the am and 1 tablet at hs PENTOSAN POLYSULFATE SODIUM 36095675557 Active Carlton Hu MD Ac tive CEFDINIR 300 MG CAPS by mouth twice a day CEFDI ODILIA 93363137234 No Longer Active Carlton Hu MD Active CEFDINIR 300 MG CAPS by mouth twice a day CEFDI ODILIA 00749274240 No Longer Active Carlton Hu MD Active CEFDINIR 300 MG CAPS by mouth twice a day CEFDI ODILIA 68397732628 No Longer Active Carlton Hu MD Active TESSALON PERLES 100 MG CAP 1 tablet by mouth 3 times daily a s needed for cough BENZONATATE 99629932104 No Longer Active Carlton bustamante MD Active CEFDINIR 300 MG CAPS by mouth twice a day CEFDI ODILIA 51987906735 No Longer Active Carlton Hu MD Active ZITHROMAX Z-REYNA 250 MG TABS 2 today, then 1 daily for 4 days 201 04/09/17 AZITHROMYCIN 16761785433 No Longer Active Hugo Restrepo MD Active TESSALON PERLES 100 MG CAP 1 tablet by mouth 3 times daily a s needed for cough TESSALON PERLES 100 MG CAP 511684 BENZONATATE I nactive PREDNISONE 20 MG TAB 1 po bid 3 days, then 1 po q day 3 days 201 05/03/07 PREDNISONE 20 MG TAB 706039 PREDNISONE Inactive LORTAB 7.5-500 MG/15ML ELIX 7.5 ml po q 4 hour prn cough LORTAB 7.5-500 MG/15ML ELIX HYDROCODONE-ACETAMINOPHEN Inacti ve ACETAMINOPHEN-CODEINE #3 300-30 MG TABS 1 PO Q 4-6 HR PRN PAIN 2 ACETAMINOPHEN-CODEINE #3 300-30 MG TABS 843785 ACETAMIN OPHEN-CODEINE Inactive CHERATUSSIN AC 100-10 MG/5ML SYRP take 1 tsp po q4-6 hours prn c ough CHERATUSSIN AC 100-10 MG/5ML SYRP 693442 GUAIFENESIN-CO DEINE Inactive ACETAMINOPHEN-CODEINE #3 300-30 MG TABS 1 tablet po q 4-6hrs prn pain ACETAMINOPHEN-CODEINE #3 300-30 MG TABS 229807 ACETAMIN OPHEN-CODEINE Inactive HYDROCODONE-ACETAMINOPHEN 5-325 MG TABS 1 po q 6hr PRN cough 201 05/09/16 HYDROCODONE-ACETAMINOPHEN 5-325 MG TABS 704377 HYDROCODONE-ACETAMINOPHEN Inactive AVELOX 400 MG TABS 1 tab by mouth daily A VELOX 400 MG TABS 634617 MOXIFLOXACIN HCL Inactive CHERATUSSIN AC 100-10 MG/5ML SYRP 1 tsp by mouth every 4 hours as needed for cough CHERATUSSIN AC 100-10 MG/5ML SYRP 922940 GUAIFENESIN-CODEINE Inactive TERBINAFINE HCL 250 MG TABS 1 qDay TERBINAFINE HCL 250 MG TABS 594338 TERBINAFINE HCL Inactive CHERATUSSIN AC 100-10 MG/5ML SYRP 1 tsp by mouth every 4 hours as needed for cough CHERATUSSIN AC 100-10 MG/5ML SYRP 263374 GUAIFENESIN-CODEINE Inactive ACETAMINOPHEN-CODEINE #3 300-30 MG TABS 1 PO Q 4-6 HRS PRN PAIN ACETAMINOPHEN-CODEINE #3 300-30 MG TABS 651889 ACETAMINOPHEN-CODEIN E Inactive CHERATUSSIN AC 100-10 MG/5ML SYRP 1 tsp by mouth every 4 hours as needed for cough CHERATUSSIN AC 100-10 MG/5ML SYRP 576137 GUAIFENESIN-CODEINE Inactive AUGMENTIN 875-125 MG TAB 1 tab by mouth twice daily with food 20 12/03/31 AUGMENTIN 875-125 MG TAB 813677 AMOXICILLIN-POT CLAVULA EFE Inactive CHERATUSSIN AC 100-10 MG/5ML SYRP take one tsp po Q 6hours prn c ough CHERATUSSIN AC 100-10 MG/5ML SYRP 321573 GUAIFENESIN-CO DEINE Inactive PROPRANOLOL HCL 60 MG TABS 1 PO Q D P ROPRANOLOL HCL 60 MG TABS 194809 PROPRANOLOL HCL Inactive TOPAMAX 50 MG TABS take 1 tab po BID for migraines. 12/07/10 TOPAMAX 50 MG TABS 674052 TOPIRAMATE Inactive TOPAMAX 25 MG TABS 1 qHS x 1 week, then 1 BID x 1 week, then 1 qAM and 2 qHS x 1 week, then 2 BID (migraine prevention) TOPAMAX 2 5 MG TABS 470322 TOPIRAMATE Inactive LYRICA 75 MG CAPS TAKE 1 CAPSULE BY MOUTH TWICE DAILY LYRICA 75 MG CAPS PREGABALIN Inactive SYMBICORT 160-4.5 MCG/ACT AERO 2 puffs bid with rinse after 2011 SYMBICORT 160-4.5 MCG/ACT AERO BUDESONIDE-FORMOT SÁNCHEZ FUMARATE Inactive PROMETHAZINE-CODEINE 6.25-10 MG/5ML SYRP 1 tsp by mouth ever y 8 hours prn cough PROMETHAZINE-CODEINE 6.25-10 MG/5ML SYRP 037397 PROMETHAZINE-CODEINE Inactive CYMBALTA 30 MG CPEP 1 cap by mouth daily CYMBALTA 30 MG CPEP 333192 DULOXETINE HCL Inactive PREMARIN 0.625 MG TABS TAKE 1 TAB BY MOUTH DAILY 07/25 PREMARIN 0.625 MG TABS ESTROGENS CONJUGATED Inactive CHERATUSSIN AC 100-10 MG/5ML SYRP 1 tsp by mouth every 4 hours as needed for cough CHERATUSSIN AC 100-10 MG/5ML SYRP 653311 GUAIFENESIN-CODEINE Inactive PROMETHAZINE-CODEINE 6.25-10 MG/5ML SYRP 1 tsp by mout h every 6 hours if needed for cough PROMETHAZINE-CODEINE 6.25-10 MG/5ML SYRP 938404 PROMETHAZINE-CODEINE Inactive CHERATUSSIN AC 100-10 MG/5ML SYRP 1 tsp by mouth every 4 hours as needed for cough CHERATUSSIN AC 100-10 MG/5ML SYRP 616659 GUAIFENESIN-CODEINE Inactive FLUTICASONE PROPIONATE 50 MCG/ACT SUSP 1 to 2 sprays each no stril daily FLUTICASONE PROPIONATE 50 MCG/ACT SUSP 6588842 FLUTICASONE PROPIONATE Inactive PREDNISONE 20 MG ORAL TABS 3 tab PO qd x 2d, 2 tab PO qd x 2d, 1 tab PO qd x 2d, 1/2 tab PO qd x 2d PREDNISONE 20 MG ORAL TABS 120495 PREDNISONE Inactive LEVOFLOXACIN 500 MG ORAL TABS 1 tab PO daily x 10 days LEVOFLOXACIN 500 MG ORAL TABS 627479 LEVOFLOXACIN Inactive CYCLOBENZAPRINE HCL 10 MG TABS 1 tablet by mouth BID prn had cherelle n CYCLOBENZAPRINE HCL 10 MG TABS 572899 CYCLOBENZAPRINE H CL Inactive ZOCOR 40 MG TAB 1 tab by mouth daily ZOCOR 40 M G TAB 616051 SIMVASTATIN Inactive ZITHROMAX Z-REYNA 250 MG TABS 2 today, then 1 daily for 4 days 201 04/09/17 ZITHROMAX Z-REYNA 250 MG TABS 8342848 AZITHROMYCIN Inac tive CEFDINIR 300 MG CAPS by mouth twice a day CEFDINIR 300 MG CAPS 20020704 CEFDINIR Inactive CEFDINIR 300 MG CAPS by mouth twice a day CEFDINIR 300 MG CAPS 473809 CEFDINIR Inactive CEFDINIR 300 MG CAPS by mouth twice a day CEFDINIR 300 MG CAPS 572941 CEFDINIR Inactive CEFDINIR 300 MG CAPS by mouth twice a day CEFDINIR 300 MG CAPS 616330 CEFDINIR Inactive ZITHROMAX 250 MG TAB 2 po today, then 1 po q days 2-5 ZITHROMAX 250 MG TAB 5243946 AZITHROMYCIN Inactive CEFDINIR 300 MG CAPS by mouth twice a day CEFDINIR 300 MG CAPS 20020704 CEFDINIR Inactive PREDNISONE 20 MG TAB 2 tabs daily for 3 days, 1 t ab daily for 3 days, 1/2 tab daily for 2 days PREDNISONE 20 MG TAB 910834 PREDNISON E Inactive AVELOX 400 MG TABS 1 tab by mouth daily A VELOX 400 MG TABS 342892 MOXIFLOXACIN HCL Inactive AVELOX 400 MG TABS 1 tab by mouth daily A VELOX 400 MG TABS 375793 MOXIFLOXACIN HCL Inactive PREDNISONE 20 MG TAB Take 3 tabs daily for 3 days , 2 tabs daily for 3 days, 1 tab daily for 3 days, 1/2 tab daily for 3 days PREDNISONE 20 MG TAB 919401 PREDNISONE Inactive LEVAQUIN 500 MG TABS take one po QD LEVAQUIN 50 0 MG TABS 397592 LEVOFLOXACIN Inactive AZITHROMYCIN 250 MG TABS 2 po qd x 1 day, then 1 po qd x 4 days AZITHROMYCIN 250 MG TABS 4963898 AZITHROMYCIN Inactiv e MEDROL (REYNA) 4 MG TABS 6 tabs on day 1, 5 tabs on d ay 2, 4 tabs on day 3, 3 tabs on day 4, 2 tabs on day 5, 1 tab on day 6 MEDROL (REYNA) 4 MG TABS 476761 METHYLPREDNISOLONE Inactive CHERATUSSIN AC 100-10 MG/5ML SYRP 5ml po q6hr PRN Cough CHERATUSSIN AC 100-10 MG/5ML SYRP 270730 GUAIFENESIN-CODEINE Inacti ve TRIAMCINOLONE ACETONIDE 0.1 % CREA apply three times daily prn r beatrice TRIAMCINOLONE ACETONIDE 0.1 % CREA 2018178 TRIAMCINOLONE ACETONIDE Inactive AZITHROMYCIN 250 MG TABS 2 po qd x 1 day, then 1 po qd x 4 days AZITHROMYCIN 250 MG TABS 0480755 AZITHROMYCIN Inactiv e MEDROL (REYNA) 4 MG TABS 6 pills x 1 day, then 5 pill s x 1 day then 4 pills x 1 day, then 3 pills x 1 day, then 2 pills x 1 day, then 1 pill x 1 day, then stop MEDROL (REYNA) 4 MG TABS 533698 METHYLPREDNISOLONE Inactive AMOXICILLIN 500 MG CAP 1 tab by mouth 3 times daily x 10 days 20 13/03/08 AMOXICILLIN 500 MG CAP 224353 AMOXICILLIN Inactive AMOXICILLIN 500 MG CAP 1 tab by mouth 3 times daily x 10 days 20 14/04/28 AMOXICILLIN 500 MG CAP 915199 AMOXICILLIN Inactive ZITHROMAX 250 MG TAB 2 po today, then 1 po q days 2-5 ZITHROMAX 250 MG TAB 1383693 AZITHROMYCIN Inactive AUGMENTIN 875-125 MG TAB 1 po BID x 10 days AUGMENTIN 875- 125 MG TAB 417971 AMOXICILLIN-POT CLAVULANATE Inactive ZITHROMAX Z-REYNA 250 MG TABS 2 today, then 1 daily for 4 days 201 08/07/20 ZITHROMAX Z-REYNA 250 MG TABS 1669851 AZITHROMYCIN Inac tive ZITHROMAX 250 MG TAB 2 po today, then 1 po q days 2-5 ZITHROMAX 250 MG TAB 8646157 AZITHROMYCIN Inactive ZITHROMAX Z-REYNA 250 MG TABS 2 today, then 1 daily for 4 days 201 08/30/03 ZITHROMAX Z-REYNA 250 MG TABS 3855826 AZITHROMYCIN Inac tive CEFDINIR 300 MG CAPS 1 po BID x 10 days C EFDINIR 300 MG CAPS 587021 CEFDINIR Inactive ZITHROMAX 250 MG TAB 2 po today, then 1 po q days 2-5 ZITHROMAX 250 MG TAB 7202171 AZITHROMYCIN Inactive LEVAQUIN 500 MG TAB 1 tablet by mouth daily LEVAQUIN 500 MG TAB 836931 LEVOFLOXACIN Inactive SINGULAIR 10 MG TABS 1 po qday for allergies 2 SINGULAIR 10 MG TABS 535161 MONTELUKAST SODIUM Inactive Vital Signs Date Name [...] Measured Encounters Code Encounter Date Provider Facility CPT-04364 Level 3 Est. Patient 14:22:19 INSTALLER TECHNICIAN Diya cobian APRN [facility] CPT-95882 Level 3 Est. Patient 10:11:46 CDT Cartlon rich MD [facility] CPT-11756 Level 3 Est. Patient 17:29:43 CDT Elise Cesar spaulding DIRECTOR OF OUTREACH [facility] CPT-08736 Level 3 Est. Patient 11:58:06 CDT Elise Cesar spaulding DIRECTOR OF OUTREACH [facility] CPT-66105 Level 4 Est. Patient 14:36:51 CDT Carlton rich MD [facility]-46662 Level 3 Est. Patient 18:16:00 INSTALLER TECHNICIAN Blaine Freeman [facility]-48120 Level 3 Est. Patient 09:45:49 INSTALLER TECHNICIAN Carlton rich MD [facility]-29242 Level 3 Est. Patient 13:19:20 CDT Carlton rich MD [facility]-63880 Level 3 Est. Patient 13:06:43 CDT Ridge tam DO [facility] CPT-27243 Level 3 Est. Patient 10:03:07 CDT Perez Mora MD [facility] CPT-63964 Level 3 Est. Patient 19:50:35 INSTALLER TECHNICIAN Carlton rich MD [facility]-49008 Level 4 Est. Patient 18:05:01 INSTALLER TECHNICIAN Carlton rich MD [facility] CPT-83489 Level 3 Est. Patient 10:45:55 INSTALLER TECHNICIAN Hugo Restrepo MD [facility] CPT-69703 Level 3 Est. Patient 14:12:49 CDT Griffin lincoln [facility] CPT-68438 Level 3 Est. Patient 17:37:24 CDT Carlton rich MD [facility] [place]-56753 Level 3 Est. Patient 16:51:54 CDT Carlton rich MD [facility]-33739 Level 3 Est. Patient 12:18:11 CDT Hugo Restrepo MD [facility] CPT-07068 Level 3 Est. Patient 11:30:25 CDT Marcy crisostomo MD PhD [facility] CPT-29854 Level 3 Est. Patient 12:00:47 INSTALLER TECHNICIAN Carlton rich MD [facility] CPT-79106 Level 3 Est. Patient 16:31:06 INSTALLER TECHNICIAN Carlton rich MD [facility] CPT-84809 Level 3 Est. Patient 16:23:24 INSTALLER TECHNICIAN Ridge tam [facility] CPT-69485 Level 3 Est. Patient 12:34:12 CDT Carlton rich MD [facility] CPT-66423 Level 2 Est. Patient 15:43:33 CDT Robi armstrong MD [facility] CPT-64564 Level 4 Est. Patient 14:04:44 CDT Carlton rich MD [facility] CPT-27320 Level 3 Est. Patient 05:47:59 CDT Ridge tam [facility] CPT-50918 Level 3 Est. Patient 13:12:53 INSTALLER TECHNICIAN Carlton rich MD [facility] CPT-96047 Level 3 Est. Patient 14:26:53 CDT Hugo Restrepo MD [facility] Procedures Code Procedure Name Date Entry Date Standard Desc ription CPT-J0696 Rocephin 1gm Inj Solr 14:32:13 CDT CPT-J1020 Depo Medrol 60 mg (Methyl Prednisolone A cetate) 14:32:13 CDT CPT-J1100 Decadron 6mg (Dexamethasone) 14:32:13 CDT CPT-41506 Hip bilat min 2V w AP pelvis 13:16:20 CDT 2 CPT-96863 Pelvis only 13:07:33 CDT CPT-99397 Spec Collection and Handling Fee 11:25:12 C DT CPT-85032 Fluzone Quadrivalent Intramuscular Suspe nsion 0.5 ML 14:31:55 CDT CPT-34381 Abx/Therapy Injection 13:28:47 INSTALLER TECHNICIAN CPT-J2930 Solu Medrol 125 mg (Methyl Prednisolone Sodium Succinate) 12:00:47 INSTALLER TECHNICIAN CPT-25751 Venipuncture Draw Fee 11:33:31 CDT CPT-55003 EKG Trac and Interp 11:21:09 CDT CPT-11375 Chest 2V Frontal and Lat 11:21:09 CDT 12/15 CPT-16588 Venipuncture Draw Fee 08:02:34 CDT CPT-21462 Chest 2V Frontal and Lat 05:47:59 CDT 06/05
--- OUTSIDE RECORDS SUMMARY | 2019-10-08 08:33 | XMS REPORT | Clinical Summary ---
Author Author Caitlin, Juliana Martinez Organization [facility] Address Unknown Phone Unavailable Allergies, Adverse [...] sites Sinusitis 473.9 Active Diya De Guzman PLANT AND MAINTENANCE TECHNICIAN Unspecified sinusitis (chronic) Bronchitis-Acute 466.0 Active Cartlon Hu MD Acute bronchitis URI - acute 465.9 Active Elise Whitmore PLANT AND MAINTENANCE TECHNICIAN Acute upper respiratory infections of unspecified site Pharyngitis acute 462 Active Elise Whitmore A PRN Acute pharyngitis Rhinitis, acute 460 Active Elise Whitmore APR N Acute nasopharyngitis [common cold] Sinusitis 473.9 Active Diya De Guzman PLANT AND MAINTENANCE TECHNICIAN Unspecified sinusitis (chronic) Bronchitis 490 Active Diya De Guzman PLANT AND MAINTENANCE TECHNICIAN Bronchitis, not specified as acute or chronic [...] CAPS 1 po BID for fibromyalgia GABAPENTIN 37663797881 Active Elise Whitmore PLANT AND MAINTENANCE TECHNICIAN Active LYRICA 100 MG CAPS Take 1 tab po BID for fibromyalgia PREGABALIN 37579517730 No Longer Active Elise Whitmore APRN Acti ve PROAIR HFA 108 (90 BASE) MCG/ACT AERS 2 puffs four times a d ay as needed ALBUTEROL SULFATE 75564959024 Active Jillina Gege APR N Active MUCINEX DM MAXIMUM STRENGTH 60-1200 MG [id number] 1 tab po q am 2016 DEXTROMETHORPHAN-GUAIFENESIN 37395230742 Active Jillina Frakerriel PLANT AND MAINTENANCE TECHNICIAN Active TUSSIONEX PENNKINETIC ER 10-8 MG/5ML LQCR 5ml po q12hr PRN Cough 20 14/06/21 HYDROCOD POLST-CHLORPHEN POLST 77655578782 Active Carlton Hu MD Active PREDNISONE 20 MG TAB 2 tabs daily for 3 days, 1 t ab daily for 3 days, 1/2 tab daily for 2 days PREDNISONE 85866569529 No Longer Active Venullina Cesarl PLANT AND MAINTENANCE TECHNICIAN Active TUSSIONEX PENNKINETIC ER 10-8 MG/5ML ORAL LQCR 5 mL PO q 12 hrs PRN cough HYDROCOD POLST-CHLORPHEN POLST 22970573239 No Longer Active Jillina Frazell PLANT AND MAINTENANCE TECHNICIAN Active FLUTICASONE PROPIONATE 50 MCG/ACT SUSP 2 sprays each n ostril daily until bottle is empty FLUTICASONE PROPIONATE 82845691043 No Longer Ac tive Jillina Frazell PLANT AND MAINTENANCE TECHNICIAN Active ASMANEX 60 METERED DOSES 220 MCG/INH AEPB 1 puff bid with ri nse after MOMETASONE FUROATE 84109182589 No Longer Active Jillina Darlin ell PLANT AND MAINTENANCE TECHNICIAN Active ZITHROMAX Z-REYNA 250 MG TABS 2 today, then 1 daily for 4 days 201 09/29/14 AZITHROMYCIN 73950340126 No Longer Active Elise Whitmore APRN Active TUSSIONEX PENNKINETIC ER 10-8 MG/5ML LQCR 5ml po q12hr PRN Cough HYDROCOD POLST-CHLORPHEN POLST 85906695452 No Longer Active Elise Whitmore APRN Active MUCINEX D 60-600 MG [id number] 1 tab po q am PSEUDOEPHEDRINE-GUAIFENESIN 01231440794 Active Jillina Frazell PLANT AND MAINTENANCE TECHNICIAN Active PREDNISONE 20 MG TAB 2 tabs daily for 3 days, 1 t ab daily for 3 days, 1/2 tab daily for 2 days PREDNISONE 71408430082 No Longer Active Jillina Frazell PLANT AND MAINTENANCE TECHNICIAN Active AMOXICILLIN 500 MG CAPS 2 po BID x 10 days AMOX ICILLIN 70457385406 No Longer Active Jillina Frazell PLANT AND MAINTENANCE TECHNICIAN Active SINGULAIR 10 MG TABS 1 po qday for allergies 2 MONTELUKAST SODIUM 94327068074 No Longer Active Carlton Hu MD Acti ve LEVAQUIN 500 MG TAB 1 tablet by mouth daily LEV OFLOXACIN 43350572062 No Longer Active Carlton Hu MD Active FLUTICASONE PROPIONATE 50 MCG/ACT SUSP 2 sprays each n ostril daily for 2 weeks, then 1 spray each nostril daily. FLUTICASONE PRO PIONATE 18411850635 Active Elise Whitmore APRN Active ZITHROMAX 250 MG TAB 2 po today, then 1 po q days 2-5 AZITHROMYCIN 84517119364 No Longer Active Elise Whitmore APRN Acti ve XANAX 0.5 MG TABS one tablet by mouth daily prn anxiety ALPRAZOLAM 47351001156 Active Elise Whitmore APRN Active CYMBALTA 30 MG CPEP 1 cap by mouth daily for depression DULOXETINE HCL 05559728135 Active Carlton Hu MD Active CEFDINIR 300 MG CAPS 1 po BID x 10 days CEFDINI R 89214699823 No Longer Active Carlton Hu MD Active ZOCOR 40 MG TAB 1 tab by mouth daily SIMVASTATI N 17723602362 No Longer Active Carlton Hu MD Active CYCLOBENZAPRINE HCL 10 MG TABS 1 tablet by mouth BID prn had cherelle n CYCLOBENZAPRINE HCL 05138871839 No Longer Active Carlton Hu MD Active LEVOFLOXACIN 500 MG ORAL TABS 1 tab PO daily x 10 days LEVOFLOXACIN 83878128496 No Longer Active Carlton Hu MD Acti ve PREDNISONE 20 MG ORAL TABS 3 tab PO qd x 2d, 2 tab PO qd x 2d, 1 tab PO qd x 2d, 1/2 tab PO qd x 2d PREDNISONE 81626634704 No Longer Active Carlton Hu MD Active FLUTICASONE PROPIONATE 50 MCG/ACT SUSP 1 to 2 sprays each no stril daily FLUTICASONE PROPIONATE 67875928180 No Longer Active T jaz HERNANDEZ Active CHERATUSSIN AC 100-10 MG/5ML SYRP 1 tsp by mouth every 4 hours as needed for cough GUAIFENESIN-CODEINE 83814019043 No Longer Activ e Blaine HERNANDEZ Active PROMETHAZINE-CODEINE 6.25-10 MG/5ML SYRP 1 tsp by mout h every 6 hours if needed for cough PROMETHAZINE-CODEINE 72572207269 No Long er Active Blaine HERNANDEZ Active CHERATUSSIN AC 100-10 MG/5ML SYRP 1 tsp by mouth every 4 hours as needed for cough GUAIFENESIN-CODEINE 07556986609 No Longer Activ e Blaine HERNANDEZ Active ZITHROMAX Z-REYNA 250 MG TABS 2 today, then 1 daily for 4 days 201 08/30/03 AZITHROMYCIN 64679618629 No Longer Active Columba Raida Act nael ZITHROMAX 250 MG TAB 2 po today, then 1 po q days 2-5 AZITHROMYCIN 34766064452 No Longer Active Carlton Hu MD Acti ve ZITHROMAX Z-REYNA 250 MG TABS 2 today, then 1 daily for 4 days 201 08/07/20 AZITHROMYCIN 22038611994 No Longer Active Columba Raida Act nael AUGMENTIN 875-125 MG TAB 1 po BID x 10 days AMOXICILLIN- POT CLAVULANATE 88895291443 No Longer Active Diya De Guzman APRN Active ZITHROMAX 250 MG TAB 2 po today, then 1 po q days 2-5 AZITHROMYCIN 62655633064 No Longer Active Carlton Hu MD Acti ve TRAMADOL HCL 50 MG TABS 1 po tid with ES Tylenol TRAMADOL HCL 58361913849 Active Carlton Hu MD Active PREMARIN 0.625 MG TABS TAKE 1 TAB BY MOUTH DAILY 07/25 ESTROGENS CONJUGATED 25036451350 No Longer Active Ridge Bess DO Active CYMBALTA 30 MG CPEP 1 cap by mouth daily DULOXE SNEHA HCL 31273315053 No Longer Active Ridge Bess DO Active AMOXICILLIN 500 MG CAP 1 tab by mouth 3 times daily x 10 days 20 14/04/28 AMOXICILLIN 64190878345 No Longer Active Carlton Hu MD Active AMOXICILLIN 500 MG CAP 1 tab by mouth 3 times daily x 10 days 20 13/03/08 AMOXICILLIN 71832466316 No Longer Active Carlton Hu MD Active PROMETHAZINE-CODEINE 6.25-10 MG/5ML SYRP 1 tsp by mouth ever y 8 hours prn cough PROMETHAZINE-CODEINE 78778585350 No Longer Active Robert Hu MD Active MEDROL (REYNA) 4 MG TABS 6 pills x 1 day, then 5 pill s x 1 day then 4 pills x 1 day, then 3 pills x 1 day, then 2 pills x 1 day, then 1 pill x 1 day, then stop METHYLPREDNISOLONE 87684601495 No Longer Active Parris Mora MD Active AZITHROMYCIN 250 MG TABS 2 po qd x 1 day, then 1 po qd x 4 days AZITHROMYCIN 73498386413 No Longer Active Perez Mora MD Active SYMBICORT 160-4.5 MCG/ACT AERO 2 puffs bid with rinse after 2011 BUDESONIDE-FORMOTEROL FUMARATE 69387567931 No Longer Active Perez Mora MD Active LYRICA 75 MG CAPS TAKE 1 CAPSULE BY MOUTH TWICE DAILY 2013 PREGABALIN 03141757798 No Longer Active Carlton Hu MD Active TOPAMAX 25 MG TABS 1 qHS x 1 week, then 1 BID x 1 week, then 1 qAM and 2 qHS x 1 week, then 2 BID (migraine prevention) TOPIRAMAT E 24158143742 No Longer Active Jerica FUENTES Active TOPAMAX 50 MG TABS take 1 tab po BID for migraines. 12/07/10 TOPIRAMATE 05111275770 No Longer Active Jerica AGUILARA Ac tive TOPAMAX 100 MG TABS Take 1 tablet po bid TOPIRAMATE 4999 2076329 Active Elise Whitmore APRN Active TRIAMCINOLONE ACETONIDE 0.1 % CREA apply three times daily prn r beatrice TRIAMCINOLONE ACETONIDE 44417951095 No Longer Active Carlton Hu MD Active PAXIL 40 MG TAB take 1 tab po qday for depression PAROXETINE HCL 12121275292 Active Elise Whitmore APRN Active CHERATUSSIN AC 100-10 MG/5ML SYRP 5ml po q6hr PRN Cough GUAIFENESIN-CODEINE 72451021325 No Longer Active Carlton Hu MD Active MEDROL (REYNA) 4 MG TABS 6 tabs on day 1, 5 tabs on d ay 2, 4 tabs on day 3, 3 tabs on day 4, 2 tabs on day 5, 1 tab on day 6 METHYLPREDNISOLONE 68354194073 No Longer Active Perez Mora MD Active AZITHROMYCIN 250 MG TABS 2 po qd x 1 day, then 1 po qd x 4 days AZITHROMYCIN 01961256425 No Longer Active Perez Mora MD Active PROPRANOLOL HCL 60 MG TABS 1 PO Q D PROPRANOL OL HCL 03899020919 No Longer Active Perez Mora MD Active CHERATUSSIN AC 100-10 MG/5ML SYRP take one tsp po Q 6hours prn c ough GUAIFENESIN-CODEINE 88672482745 No Longer Active Perez Means Active AUGMENTIN 875-125 MG TAB 1 tab by mouth twice daily with food 12/03/31 AMOXICILLIN-POT CLAVULANATE 37682004494 No Longer Active Chanel Mora MD Active CHERATUSSIN AC 100-10 MG/5ML SYRP 1 tsp by mouth every 4 hours as needed for cough GUAIFENESIN-CODEINE 30617426137 No Longer Activ e Hugo Restrepo MD Active ACETAMINOPHEN-CODEINE #3 300-30 MG TABS 1 PO Q 4-6 HRS PRN PAIN ACETAMINOPHEN-CODEINE 31221465199 No Longer Active Hugo Restrepo MD Active LEVAQUIN 500 MG TABS take one po QD LEVOFLOXACI N 35532038354 No Longer Active Griffin HERNANDEZ Active PREDNISONE 20 MG TAB Take 3 tabs daily for 3 days , 2 tabs daily for 3 days, 1 tab daily for 3 days, 1/2 tab daily for 3 days P REDNISONE 50876418040 No Longer Active Carlton Hu MD Active AVELOX 400 MG TABS 1 tab by mouth daily MOXIFLO XACIN HCL 30054614208 No Longer Active Carlton Hu MD Active CHERATUSSIN AC 100-10 MG/5ML SYRP 1 tsp by mouth every 4 hours as needed for cough GUAIFENESIN-CODEINE 92972635556 No Longer Activ e Hugo Restrepo MD Active AVELOX 400 MG TABS 1 tab by mouth daily MOXIFLO XACIN HCL 76158878000 No Longer Active Marcy De La Rosa MD PhD Active TERBINAFINE HCL 250 MG TABS 1 qDay TERBINAF INE HCL 27049707349 No Longer Active Marcy De La Rosa MD PhD Active CHERATUSSIN AC 100-10 MG/5ML SYRP 1 tsp by mouth every 4 hours as needed for cough GUAIFENESIN-CODEINE 17413358468 No Longer Activ e Marcy De La Rosa MD PhD Active AVELOX 400 MG TABS 1 tab by mouth daily MOXIFLO XACIN HCL 38863337549 No Longer Active Marcy De La Rosa MD PhD Active HYDROCODONE-ACETAMINOPHEN 5-325 MG TABS 1 po q 6hr PRN cough 201 05/09/16 HYDROCODONE-ACETAMINOPHEN 22669148579 No Longer Active Marcy De La Rosa MD PhD Active PREDNISONE 20 MG TAB 2 tabs daily for 3 days, 1 t ab daily for 3 days, 1/2 tab daily for 2 days PREDNISONE 25522797246 No Longer Active Carlton Hu MD Active CEFDINIR 300 MG CAPS by mouth twice a day CEFDI ODILIA 73992532831 No Longer Active Carlton Hu MD Active HYDROCHLOROTHIAZIDE 25 MG TABS 1 TAB PO DAILY H YDROCHLOROTHIAZIDE 94727811329 Active Carlton Hu MD Active ACETAMINOPHEN-CODEINE #3 300-30 MG TABS 1 tablet po q 4-6hrs prn pain ACETAMINOPHEN-CODEINE 18423733610 No Longer Active Ridge Bess DO Active ZITHROMAX 250 MG TAB 2 po today, then 1 po q days 2-5 AZITHROMYCIN 69147339919 No Longer Active Carlton Hu MD Acti ve CHERATUSSIN AC 100-10 MG/5ML SYRP take 1 tsp po q4-6 hours prn c ough GUAIFENESIN-CODEINE 08651899477 No Longer Active Carlton Hu MD Active ACETAMINOPHEN-CODEINE #3 300-30 MG TABS 1 PO Q 4-6 HR PRN PAIN 2 ACETAMINOPHEN-CODEINE 54845283348 No Longer Active Carlton rich MD Active LORTAB 7.5-500 MG/15ML ELIX 7.5 ml po q 4 hour prn cough HYDROCODONE-ACETAMINOPHEN 47361305070 No Longer Active Carlton Hu MD Active PREDNISONE 20 MG TAB 1 po bid 3 days, then 1 po q day 3 days 201 05/03/07 PREDNISONE 94289098658 No Longer Active Carlton Hu MD Active ELMIRON 100 MG CAPS 2 tablets in the am and 1 tablet at hs PENTOSAN POLYSULFATE SODIUM 17625819537 Active Carlton Hu MD Ac tive CEFDINIR 300 MG CAPS by mouth twice a day CEFDI ODILIA 38073810833 No Longer Active Carlton Hu MD Active CEFDINIR 300 MG CAPS by mouth twice a day CEFDI ODILIA 42221025715 No Longer Active Carlton Hu MD Active CEFDINIR 300 MG CAPS by mouth twice a day CEFDI ODILIA 36043470479 No Longer Active Carlton Hu MD Active TESSALON PERLES 100 MG CAP 1 tablet by mouth 3 times daily a s needed for cough BENZONATATE 40486169598 No Longer Active Carlton bustamante MD Active CEFDINIR 300 MG CAPS by mouth twice a day CEFDI ODILIA 74335418761 No Longer Active Carlton Hu MD Active ZITHROMAX Z-REYNA 250 MG TABS 2 today, then 1 daily for 4 days 201 04/09/17 AZITHROMYCIN 66988816593 No Longer Active Hugo Restrepo MD Active TESSALON PERLES 100 MG CAP 1 tablet by mouth 3 times daily a s needed for cough TESSALON PERLES 100 MG CAP 432659 BENZONATATE I nactive PREDNISONE 20 MG TAB 1 po bid 3 days, then 1 po q day 3 days 201 05/03/07 PREDNISONE 20 MG TAB 148365 PREDNISONE Inactive LORTAB 7.5-500 MG/15ML ELIX 7.5 ml po q 4 hour prn cough LORTAB 7.5-500 MG/15ML ELIX HYDROCODONE-ACETAMINOPHEN Inacti ve ACETAMINOPHEN-CODEINE #3 300-30 MG TABS 1 PO Q 4-6 HR PRN PAIN 2 ACETAMINOPHEN-CODEINE #3 300-30 MG TABS ACETAMIN OPHEN-CODEINE Inactive CHERATUSSIN AC 100-10 MG/5ML SYRP take 1 tsp po q4-6 hours prn c ough CHERATUSSIN AC 100-10 MG/5ML SYRP 228571 GUAIFENESIN-CO DEINE Inactive ACETAMINOPHEN-CODEINE #3 300-30 MG TABS 1 tablet po q 4-6hrs prn pain ACETAMINOPHEN-CODEINE #3 300-30 MG TABS ACETAMIN OPHEN-CODEINE Inactive HYDROCODONE-ACETAMINOPHEN 5-325 MG TABS 1 po q 6hr PRN cough 201 05/09/16 HYDROCODONE-ACETAMINOPHEN 5-325 MG TABS 207310 HYDROCODONE-ACETAMINOPHEN Inactive AVELOX 400 MG TABS 1 tab by mouth daily A VELOX 400 MG TABS 644004 MOXIFLOXACIN HCL Inactive CHERATUSSIN AC 100-10 MG/5ML SYRP 1 tsp by mouth every 4 hours as needed for cough CHERATUSSIN AC 100-10 MG/5ML SYRP 039315 GUAIFENESIN-CODEINE Inactive TERBINAFINE HCL 250 MG TABS 1 qDay TERBINAFINE HCL 250 MG TABS 194570 TERBINAFINE HCL Inactive CHERATUSSIN AC 100-10 MG/5ML SYRP 1 tsp by mouth every 4 hours as needed for cough CHERATUSSIN AC 100-10 MG/5ML SYRP 564037 GUAIFENESIN-CODEINE Inactive ACETAMINOPHEN-CODEINE #3 300-30 MG TABS 1 PO Q 4-6 HRS PRN PAIN ACETAMINOPHEN-CODEINE #3 300-30 MG TABS ACETAMINOPHEN-CODEIN E Inactive CHERATUSSIN AC 100-10 MG/5ML SYRP 1 tsp by mouth every 4 hours as needed for cough CHERATUSSIN AC 100-10 MG/5ML SYRP 101014 GUAIFENESIN-CODEINE Inactive AUGMENTIN 875-125 MG TAB 1 tab by mouth twice daily with food 20 12/03/31 AUGMENTIN 875-125 MG TAB 748975 AMOXICILLIN-POT CLAVULA EFE Inactive CHERATUSSIN AC 100-10 MG/5ML SYRP take one tsp po Q 6hours prn c ough CHERATUSSIN AC 100-10 MG/5ML SYRP 045778 GUAIFENESIN-CO DEINE Inactive PROPRANOLOL HCL 60 MG TABS 1 PO Q D P ROPRANOLOL HCL 60 MG TABS 730253 PROPRANOLOL HCL Inactive TOPAMAX 50 MG TABS take 1 tab po BID for migraines. 12/07/10 TOPAMAX 50 MG TABS 888919 TOPIRAMATE Inactive TOPAMAX 25 MG TABS 1 qHS x 1 week, then 1 BID x 1 week, then 1 qAM and 2 qHS x 1 week, then 2 BID (migraine prevention) TOPAMAX 2 5 MG TABS 207254 TOPIRAMATE Inactive LYRICA 75 MG CAPS TAKE 1 CAPSULE BY MOUTH TWICE DAILY LYRICA 75 MG CAPS PREGABALIN Inactive SYMBICORT 160-4.5 MCG/ACT AERO 2 puffs bid with rinse after 2011 SYMBICORT 160-4.5 MCG/ACT AERO BUDESONIDE-FORMOT SÁNCHEZ FUMARATE Inactive PROMETHAZINE-CODEINE 6.25-10 MG/5ML SYRP 1 tsp by mouth ever y 8 hours prn cough PROMETHAZINE-CODEINE 6.25-10 MG/5ML SYRP 782804 PROMETHAZINE-CODEINE Inactive CYMBALTA 30 MG CPEP 1 cap by mouth daily CYMBALTA 30 MG CPEP 442256 DULOXETINE HCL Inactive PREMARIN 0.625 MG TABS TAKE 1 TAB BY MOUTH DAILY 07/25 PREMARIN 0.625 MG TABS ESTROGENS CONJUGATED Inactive CHERATUSSIN AC 100-10 MG/5ML SYRP 1 tsp by mouth every 4 hours as needed for cough CHERATUSSIN AC 100-10 MG/5ML SYRP 045555 GUAIFENESIN-CODEINE Inactive PROMETHAZINE-CODEINE 6.25-10 MG/5ML SYRP 1 tsp by mout h every 6 hours if needed for cough PROMETHAZINE-CODEINE 6.25-10 MG/5ML SYRP 065108 PROMETHAZINE-CODEINE Inactive CHERATUSSIN AC 100-10 MG/5ML SYRP 1 tsp by mouth every 4 hours as needed for cough CHERATUSSIN AC 100-10 MG/5ML SYRP 324108 GUAIFENESIN-CODEINE Inactive FLUTICASONE PROPIONATE 50 MCG/ACT SUSP 1 to 2 sprays each no stril daily FLUTICASONE PROPIONATE 50 MCG/ACT SUSP 1371498 FLUTICASONE PROPIONATE Inactive PREDNISONE 20 MG ORAL TABS 3 tab PO qd x 2d, 2 tab PO qd x 2d, 1 tab PO qd x 2d, 1/2 tab PO qd x 2d PREDNISONE 20 MG ORAL TABS 913387 PREDNISONE Inactive LEVOFLOXACIN 500 MG ORAL TABS 1 tab PO daily x 10 days LEVOFLOXACIN 500 MG ORAL TABS 773871 LEVOFLOXACIN Inactive CYCLOBENZAPRINE HCL 10 MG TABS 1 tablet by mouth BID prn had cherelle n CYCLOBENZAPRINE HCL 10 MG TABS 492385 CYCLOBENZAPRINE H CL Inactive ZOCOR 40 MG TAB 1 tab by mouth daily ZOCOR 40 M G TAB 152486 SIMVASTATIN Inactive TUSSIONEX PENNKINETIC ER 10-8 MG/5ML [...] empty FLUTICASONE PROPIONATE 50 MCG/ACT SUSP 17 07974 FLUTICASONE PROPIONATE Inactive TUSSIONEX PENNKINETIC ER 10-8 [...] 201 04/09/17 ZITHROMAX Z-REYNA 250 MG TABS 7244692 AZITHROMYCIN Inac tive CEFDINIR 300 MG CAPS [...] q days 2-5 ZITHROMAX 250 MG TAB 9235237 AZITHROMYCIN Inactive CEFDINIR 300 MG CAPS by mouth twice a day CEFDINIR 300 MG CAPS 020703 CEFDINIR Inactive PREDNISONE 20 MG TAB 2 tabs daily for 3 days, 1 t ab daily for 3 days, 1/2 tab daily for 2 days PREDNISONE 20 MG TAB 016504 PREDNISON E Inactive AVELOX 400 MG TABS 1 tab by mouth daily A VELOX 400 MG TABS 183229 MOXIFLOXACIN HCL Inactive AVELOX 400 MG TABS 1 tab by mouth daily A VELOX 400 MG TABS 331412 MOXIFLOXACIN HCL Inactive PREDNISONE 20 MG TAB Take 3 tabs daily for 3 days , 2 tabs daily for 3 days, 1 tab daily for 3 days, 1/2 tab daily for 3 days PREDNISONE 20 MG TAB 725581 PREDNISONE Inactive LEVAQUIN 500 MG TABS take one po QD LEVAQUIN 50 0 MG TABS 373691 LEVOFLOXACIN Inactive AZITHROMYCIN 250 MG TABS 2 po qd x 1 day, then 1 po qd x 4 days AZITHROMYCIN 250 MG TABS 0822749 AZITHROMYCIN Inactiv e MEDROL (REYNA) 4 MG TABS 6 tabs on day 1, 5 tabs on d ay 2, 4 tabs on day 3, 3 tabs on day 4, 2 tabs on day 5, 1 tab on day 6 MEDROL (REYNA) 4 MG TABS 053246 METHYLPREDNISOLONE Inactive CHERATUSSIN AC 100-10 MG/5ML SYRP 5ml po q6hr PRN Cough CHERATUSSIN AC 100-10 MG/5ML SYRP 688288 GUAIFENESIN-CODEINE Inacti ve TRIAMCINOLONE ACETONIDE 0.1 % CREA apply three times daily prn r beatrice TRIAMCINOLONE ACETONIDE 0.1 % CREA 3406942 TRIAMCINOLONE ACETONIDE Inactive AZITHROMYCIN 250 MG TABS 2 po qd x 1 day, then 1 po qd x 4 days AZITHROMYCIN 250 MG TABS 9383345 AZITHROMYCIN Inactiv e MEDROL (REYNA) 4 MG TABS 6 pills x 1 day, then 5 pill s x 1 day then 4 pills x 1 day, then 3 pills x 1 day, then 2 pills x 1 day, then 1 pill x 1 day, then stop MEDROL (REYNA) 4 MG TABS 477483 METHYLPREDNISOLONE Inactive AMOXICILLIN 500 MG CAP 1 tab by mouth 3 times daily x 10 days 20 13/03/08 AMOXICILLIN 500 MG CAP 850189 AMOXICILLIN Inactive AMOXICILLIN 500 MG CAP 1 tab by mouth 3 times daily x 10 days 20 14/04/28 AMOXICILLIN 500 MG CAP 330134 AMOXICILLIN Inactive ZITHROMAX 250 MG TAB 2 po today, then 1 po q days 2-5 ZITHROMAX 250 MG TAB 1957024 AZITHROMYCIN Inactive AUGMENTIN 875-125 MG TAB 1 po BID x 10 days AUGMENTIN 875- 125 MG TAB 410934 AMOXICILLIN-POT CLAVULANATE Inactive ZITHROMAX Z-REYNA 250 MG TABS 2 today, then 1 daily for 4 days 201 08/07/20 ZITHROMAX Z-REYNA 250 MG TABS 9046281 AZITHROMYCIN Inac tive ZITHROMAX 250 MG TAB 2 po today, then 1 po q days 2-5 ZITHROMAX 250 MG TAB 1469324 AZITHROMYCIN Inactive ZITHROMAX Z-REYNA 250 MG TABS 2 today, then 1 daily for 4 days 201 08/30/03 ZITHROMAX Z-REYNA 250 MG TABS 9616924 AZITHROMYCIN Inac tive CEFDINIR 300 MG CAPS 1 po BID x 10 days C EFDINIR 300 MG CAPS 953639 CEFDINIR Inactive ZITHROMAX 250 MG TAB 2 po today, then 1 po q days 2-5 ZITHROMAX 250 MG TAB 0758421 AZITHROMYCIN Inactive LEVAQUIN 500 MG TAB 1 tablet by mouth daily LEVAQUIN 500 MG TAB 598550 LEVOFLOXACIN Inactive SINGULAIR 10 MG TABS 1 po qday for allergies 2 SINGULAIR 10 MG TABS 20010504 MONTELUKAST SODIUM Inactive AMOXICILLIN 500 MG CAPS 2 po BID x 10 days AMOXICILLIN 500 MG CAPS 198445 AMOXICILLIN Inactive PREDNISONE 20 MG TAB 2 tabs daily for 3 days, 1 t ab daily for 3 days, 1/2 tab daily for 2 days PREDNISONE 20 MG TAB 464683 PREDNISON E Inactive ZITHROMAX Z-REYNA 250 MG TABS 2 today, then 1 daily for 4 days 201 09/29/14 ZITHROMAX Z-REYNA 250 MG TABS 9264096 AZITHROMYCIN Inac tive PREDNISONE 20 MG TAB 2 tabs daily for 3 days, 1 t ab daily for 3 days, 1/2 tab daily for 2 days PREDNISONE 20 MG TAB 514594 PREDNISON E Inactive Vital Signs Date Name [...] Measured Encounters Code Encounter Date Provider Facility CPT-42041 Level 3 Est. Patient 13:42:38 CDT Elise And chelly [facility] CPT-46636 Level 3 Est. Patient 13:23:51 CDT Diya cobian [facility] CPT-36219 Level 3 Est. Patient 14:22:19 CENTRIFUGAL CHILLER TECHNICIAN Diya cobian [facility] CPT-23224 Level 3 Est. Patient 10:11:46 CDT Carlton rich MD [facility] CPT-94996 Level 3 Est. Patient 17:29:43 CDT Italo [employer]ANT AND MAINTENANCE TECHNICIAN [facility] CPT-80967 Level 3 Est. [facility] 11:58:[facility] Patient 14:36:51 CDT Carlton rich MD [facility] CPT-19721 Level 3 Est. Patient 18:16:00 CENTRIFUGAL CHILLER TECHNICIAN Blaine HERNANDEZ [facility] CPT-72132 Level 3 Est. Patient 09:45:49 CENTRIFUGAL CHILLER TECHNICIAN Carlton rich MD [facility] CPT-73204 Level 3 Est. Patient 13:19:20 CDT Carlton rich MD [facility]-[address] Level 3 Est. Patient 13:06:43 CDT Ridge tam DO [facility] CPT-52349 Level 3 Est. Patient 10:03:07 CDT Perez Mora MD [facility]-[address]75 Level 3 Est. Patient 19:50:35 CENTRIFUGAL CHILLER TECHNICIAN Carlton rich MD [facility]-53035 Level 4 Est. Patient 18:05:01 CENTRIFUGAL CHILLER TECHNICIAN Carlton rich MD [facility]-[address]125 Level 3 Est. Patient 10:45:55 CENTRIFUGAL CHILLER TECHNICIAN Hugo Restrepo MD [facility]-[address]655 Level 3 Est. Patient 14:12:49 CDT Griffin HERNANDEZ [facility] CPT-84776 Level 3 Est. Patient 17:37:24 CDT Carlton rich MD [facility]-30293 Level 3 Est. Patient 16:51:54 CDT Carlton rich MD [facility]-[address]124 Level 3 Est. Patient 12:18:11 CDT Hugo Restrepo MD [facility]-37758 Level 3 Est. Patient 11:30:25 CDT Maryc crisostomo MD PhD [facility]-75830 Level 3 Est. Patient 12:00:47 CENTRIFUGAL CHILLER TECHNICIAN Carlton rich MD [facility]-98050 Level 3 Est. Patient 16:31:06 CENTRIFUGAL CHILLER TECHNICIAN Carlton rich MD [facility]-[address]18 Level 3 Est. Patient 16:23:24 CENTRIFUGAL CHILLER TECHNICIAN Ridge W L ee [facility] CPT-12760 Level 3 Est. Patient 12:34:12 CDT Carlton rich MD [facility] CPT-00002 Level 2 Est. Patient 15:43:33 CDT Robi armstrong MD [facility] CPT-84663 Level 4 Est. Patient 14:04:44 CDT Carlton rich MD [facility] CPT-28694 Level 3 Est. Patient 05:47:59 CDT Ridge tam [facility] CPT-89571 Level 3 Est. Patient 13:12:53 CENTRIFUGAL CHILLER TECHNICIAN Carlton rich MD [facility] CPT-94158 Level 3 Est. Patient 14:26:53 CDT Hugo Restrepo MD [facility] Procedures Code Procedure Name Date Entry Date Standard Desc ription CPT-J0696 Rocephin 1gm Inj Solr 14:32:13 CDT CPT-J1020 Depo Medrol 60 mg (Methyl Prednisolone A cetate) 14:32:13 CDT CPT-J1100 Decadron 6mg (Dexamethasone) 14:32:13 CDT 2 CPT-88805 Hip bilat min 2V w AP pelvis 13:16:20 CDT 2 CPT-32040 Pelvis only 13:07:33 CDT CPT-31878 Spec Collection and Handling Fee 11:25:12 C DT CPT-61307 Fluzone Quadrivalent Intramuscular Suspe nsion 0.5 ML 14:31:55 CDT CPT-84761 Abx/Therapy Injection 13:28:47 [employer] TECHNICIAN CPT-J2930 Solu Medrol 125 mg (Methyl Prednisolone Sodium Succinate) 12:00:47 [employer] TECHNICIAN CPT-34910 Venipuncture Draw Fee 11:33:31 CDT CPT-15991 EKG Trac and Interp 11:21:09 CDT CPT-38808 Chest 2V Frontal and Lat 11:21:09 CDT 12/15 CPT-90590 Venipuncture Draw Fee 08:02:34 CDT CPT-85660 Chest 2V Frontal and Lat 05:47:59 CDT 06/05
--- OUTSIDE RECORDS SUMMARY | 2019-10-08 08:33 | XMS REPORT | Clinical Summary ---
Author Author Caitlin, Juliana Martinez Organization [facility] Address Unknown Phone Unavailable Allergies, Adverse Reactions, Alerts Allergy Name Reaction Description Start Date Severity Status Pr ovider No Known Allergies [facility] Conditions or Problems Problem Name Problem [...] 12 hrs PRN cough HYDROCOD POLST-CHLORPHEN POLST [id number] Active Blaine HERNANDEZ Active PREDNISONE 20 MG ORAL TABS 3 tab PO qd x 2d, 2 tab PO qd x 2d, 1 tab PO qd x 2d, 1/2 tab PO qd x 2d PREDNISONE 62989287751 Active Khanh HERNANDEZ Active LEVOFLOXACIN 500 MG ORAL TABS 1 tab PO daily x 10 days LEVOFLOXACIN 24433622951 Active Blaine HERNANDEZ Active FLUTICASONE PROPIONATE 50 MCG/ACT SUSP 1 to 2 sprays each no stril daily FLUTICASONE PROPIONATE 86632629657 No Longer Active T jaz HERNANDEZ Active CHERATUSSIN AC 100-10 MG/5ML SYRP 1 tsp by mouth every 4 hours as needed for cough GUAIFENESIN-CODEINE 23980148318 No Longer Activ e Blaine HERNANDEZ Active PROMETHAZINE-CODEINE 6.25-10 MG/5ML SYRP 1 tsp by mout h every 6 hours if needed for cough PROMETHAZINE-CODEINE 76064771625 No Long er Active Blaine HERNANDEZ Active CHERATUSSIN AC 100-10 MG/5ML SYRP 1 tsp by mouth every 4 hours as needed for cough GUAIFENESIN-CODEINE 47665786227 No Longer Activ e Blaine HERNANDEZ Active ZITHROMAX Z-REYNA 250 MG TABS 2 today, then 1 daily for 4 days 201 08/30/03 AZITHROMYCIN 66743748762 No Longer Active Columba Raida Act nael ZITHROMAX 250 MG TAB 2 po today, then 1 po q days 2-5 AZITHROMYCIN 00502684375 No Longer Active Carlton Hu MD Acti ve ZITHROMAX Z-REYNA 250 MG TABS 2 today, then 1 daily for 4 days 201 08/07/20 AZITHROMYCIN 64571123460 No Longer Active Columba Raida Act nael AUGMENTIN 875-125 MG TAB 1 po BID x 10 days AMOXICILLIN- POT CLAVULANATE 45740213636 No Longer Active Diya De Guzman APRN Active ZITHROMAX 250 MG TAB 2 po today, then 1 po q days 2-5 AZITHROMYCIN 01441673782 No Longer Active Carlton Hu MD Acti ve TRAMADOL HCL 50 MG TABS 1 po tid with ES Tylenol TRAMADOL HCL 36754846103 Active Carlton Hu MD Active PREMARIN 0.625 MG TABS TAKE 1 TAB BY MOUTH DAILY 07/25 ESTROGENS CONJUGATED 77364870125 No Longer Active Ridge Bess DO Active CYMBALTA 30 MG CPEP 1 cap by mouth daily DULOXE SNEHA HCL 58305560320 No Longer Active Ridge Bess DO Active AMOXICILLIN 500 MG CAP 1 tab by mouth 3 times daily x 10 days 20 14/04/28 AMOXICILLIN 83339140765 No Longer Active Carlton Hu MD Active AMOXICILLIN 500 MG CAP 1 tab by mouth 3 times daily x 10 days 20 13/03/08 AMOXICILLIN 13901413559 No Longer Active Carlton Hu MD Active CYCLOBENZAPRINE HCL 10 MG TABS 1 tablet by mouth BID prn had pain 2 CYCLOBENZAPRINE HCL 04644386557 Active Carlton Hu MD A ctive PROMETHAZINE-CODEINE 6.25-10 MG/5ML SYRP 1 tsp by mouth ever y 8 hours prn cough PROMETHAZINE-CODEINE 98623548925 No Longer Active Robetr Hu MD Active MEDROL (REYNA) 4 MG TABS 6 pills x 1 day, then 5 pill s x 1 day then 4 pills x 1 day, then 3 pills x 1 day, then 2 pills x 1 day, then 1 pill x 1 day, then stop METHYLPREDNISOLONE 44799775778 No Longer Active Parris Mora MD Active AZITHROMYCIN 250 MG TABS 2 po qd x 1 day, then 1 po qd x 4 days AZITHROMYCIN 80097898412 No Longer Active Perez Mora MD Active SYMBICORT 160-4.5 MCG/ACT AERO 2 puffs bid with rinse after 2011 BUDESONIDE-FORMOTEROL FUMARATE 16431797559 No Longer Active Perez Mora MD Active LYRICA 75 MG CAPS TAKE 1 CAPSULE BY MOUTH TWICE DAILY 2013 PREGABALIN 75404853582 No Longer Active Carlton Hu MD Active LYRICA 100 MG CAPS Take 1 tab po BID for fibromyalgia PREGABALIN 56030435718 Active Carlton Hu MD Active TOPAMAX 25 MG TABS 1 qHS x 1 week, then 1 BID x 1 week, then 1 qAM and 2 qHS x 1 week, then 2 BID (migraine prevention) TOPIRAMAT E 11068946540 No Longer Active Jerica Farnaz RMA Active TOPAMAX 50 MG TABS take 1 tab po BID for migraines. 12/07/10 TOPIRAMATE 61470910728 No Longer Active eJrica AGUILARA Ac tive TOPAMAX 100 MG TABS Take 1 tablet po bid TOPIRAMATE 4999 0723195 Active Carlton Hu MD Active TRIAMCINOLONE ACETONIDE 0.1 % CREA apply three times daily prn r beatrice TRIAMCINOLONE ACETONIDE 87785852382 No Longer Active Carlton Hu MD Active PAXIL 40 MG TAB take 1 tab po qday for depression PAROXETINE HCL 30812355201 Active Elise Whitmore MAKE UP EDITOR Active CHERATUSSIN AC 100-10 MG/5ML SYRP 5ml po q6hr PRN Cough GUAIFENESIN-CODEINE 45481084282 No Longer Active Carlton Hu MD Active MEDROL (REYNA) 4 MG TABS 6 tabs on day 1, 5 tabs on d ay 2, 4 tabs on day 3, 3 tabs on day 4, 2 tabs on day 5, 1 tab on day 6 METHYLPREDNISOLONE 81510636456 No Longer Active Perez Mora MD Active AZITHROMYCIN 250 MG TABS 2 po qd x 1 day, then 1 po qd x 4 days AZITHROMYCIN 28958234908 No Longer Active Perez Mora MD Active PROPRANOLOL HCL 60 MG TABS 1 PO Q D PROPRANOL OL HCL 27613336826 No Longer Active Perez Mora MD Active CHERATUSSIN AC 100-10 MG/5ML SYRP take one tsp po Q 6hours prn c ough GUAIFENESIN-CODEINE 27878940456 No Longer Active Perez Means Active AUGMENTIN 875-125 MG TAB 1 tab by mouth twice daily with food 20 12/03/31 AMOXICILLIN-POT CLAVULANATE 50925523591 No Longer Active Chanel Mora MD Active CHERATUSSIN AC 100-10 MG/5ML SYRP 1 tsp by mouth every 4 hours as needed for cough GUAIFENESIN-CODEINE 01301296996 No Longer Activ e Hugo Restrepo MD Active ACETAMINOPHEN-CODEINE #3 300-30 MG TABS 1 PO Q 4-6 HRS PRN PAIN ACETAMINOPHEN-CODEINE 22602542062 No Longer Active Hugo Restrepo MD Active LEVAQUIN 500 MG TABS take one po QD LEVOFLOXACI N 39344812752 No Longer Active Griffin HERNANDEZ Active PREDNISONE 20 MG TAB Take 3 tabs daily for 3 days , 2 tabs daily for 3 days, 1 tab daily for 3 days, 1/2 tab daily for 3 days P REDNISONE 24737291942 No Longer Active Carlton Hu MD Active AVELOX 400 MG TABS 1 tab by mouth daily MOXIFLO XACIN HCL 15224085739 No Longer Active Carlton Hu MD Active CHERATUSSIN AC 100-10 MG/5ML SYRP 1 tsp by mouth every 4 hours as needed for cough GUAIFENESIN-CODEINE 55134953321 No Longer Activ e Hugo Restrepo MD Active AVELOX 400 MG TABS 1 tab by mouth daily MOXIFLO XACIN HCL 01209855483 No Longer Active Marcy De La Rosa MD PhD Active TERBINAFINE HCL 250 MG TABS 1 qDay TERBINAF INE HCL 34170240460 No Longer Active Marcy De La Rosa MD PhD Active CHERATUSSIN AC 100-10 MG/5ML SYRP 1 tsp by mouth every 4 hours as needed for cough GUAIFENESIN-CODEINE 99203872385 No Longer Activ e Marcy De La Rosa MD PhD Active AVELOX 400 MG TABS 1 tab by mouth daily MOXIFLO XACIN HCL 58432696395 No Longer Active Marcy De La Rosa MD PhD Active HYDROCODONE-ACETAMINOPHEN 5-325 MG TABS 1 po q 6hr PRN cough 201 05/09/16 HYDROCODONE-ACETAMINOPHEN 42575887044 No Longer Active Marcy De La Rosa MD PhD Active PREDNISONE 20 MG TAB 2 tabs daily for 3 days, 1 t ab daily for 3 days, 1/2 tab daily for 2 days PREDNISONE 07519042083 No Longer Active Carlton Hu MD Active CEFDINIR 300 MG CAPS by mouth twice a day CEFDI ODILIA 53841094628 No Longer Active Carlton Hu MD Active ZOCOR 40 MG TAB 1 tab by mouth daily SIMVASTATIN 34113103902 Active Carlton Hu MD Active HYDROCHLOROTHIAZIDE 25 MG TABS 1 TAB PO DAILY H YDROCHLOROTHIAZIDE 32036142232 Active Carlton Hu MD Active ACETAMINOPHEN-CODEINE #3 300-30 MG TABS 1 tablet po q 4-6hrs prn pain ACETAMINOPHEN-CODEINE 99234854413 No Longer Active Ridge Bess DO Active ZITHROMAX 250 MG TAB 2 po today, then 1 po q days 2-5 AZITHROMYCIN 30468783411 No Longer Active Carlton Hu MD Acti ve CHERATUSSIN AC 100-10 MG/5ML SYRP take 1 tsp po q4-6 hours prn c ough GUAIFENESIN-CODEINE 07392094516 No Longer Active Carlton Hu MD Active ACETAMINOPHEN-CODEINE #3 300-30 MG TABS 1 PO Q 4-6 HR PRN PAIN 2 ACETAMINOPHEN-CODEINE 20924800128 No Longer Active Carlton rich MD Active LORTAB 7.5-500 MG/15ML ELIX 7.5 ml po q 4 hour prn cough HYDROCODONE-ACETAMINOPHEN 38655288497 No Longer Active Carlton Hu MD Active PREDNISONE 20 MG TAB 1 po bid 3 days, then 1 po q day 3 days 201 05/03/07 PREDNISONE 54457961772 No Longer Active Carlton Hu MD Active ELMIRON 100 MG CAPS 2 tablets in the am and 1 tablet at hs PENTOSAN POLYSULFATE SODIUM 81016368999 Active Gracie Cameron Active CEFDINIR 300 MG CAPS by mouth twice a day CEFDI ODILIA 98600349147 No Longer Active Carlton Hu MD Active CEFDINIR 300 MG CAPS by mouth twice a day CEFDI ODILIA 14220233526 No Longer Active Carlton Hu MD Active CEFDINIR 300 MG CAPS by mouth twice a day CEFDI ODILIA 78762536612 No Longer Active Carlton Hu MD Active TESSALON PERLES 100 MG CAP 1 tablet by mouth 3 times daily a s needed for cough BENZONATATE 34614340327 No Longer Active Carlton bustamante MD Active CEFDINIR 300 MG CAPS by mouth twice a day CEFDI ODILIA 71444533077 No Longer Active Carlton Hu MD Active ZITHROMAX Z-REYNA 250 MG TABS 2 today, then 1 daily for 4 days 201 04/09/17 AZITHROMYCIN 50236332162 No Longer Active Hugo Restrepo MD Active TESSALON PERLES 100 MG CAP 1 tablet by mouth 3 times daily a s needed for cough TESSALON PERLES 100 MG CAP 994055 BENZONATATE I nactive PREDNISONE 20 MG TAB 1 po bid 3 days, then 1 po q day 3 days 201 05/03/07 PREDNISONE 20 MG TAB 575928 PREDNISONE Inactive LORTAB 7.5-500 MG/15ML ELIX 7.5 ml po q 4 hour prn cough LORTAB 7.5-500 MG/15ML ELIX HYDROCODONE-ACETAMINOPHEN Inacti ve ACETAMINOPHEN-CODEINE #3 300-30 MG TABS 1 PO Q 4-6 HR PRN PAIN 2 ACETAMINOPHEN-CODEINE #3 300-30 MG TABS 565941 ACETAMIN OPHEN-CODEINE Inactive CHERATUSSIN AC 100-10 MG/5ML SYRP take 1 tsp po q4-6 hours prn c ough CHERATUSSIN AC 100-10 MG/5ML SYRP 444395 GUAIFENESIN-CO DEINE Inactive ACETAMINOPHEN-CODEINE #3 300-30 MG TABS 1 tablet po q 4-6hrs prn pain ACETAMINOPHEN-CODEINE #3 300-30 MG TABS 109089 ACETAMIN OPHEN-CODEINE Inactive HYDROCODONE-ACETAMINOPHEN 5-325 MG TABS 1 po q 6hr PRN cough 201 05/09/16 HYDROCODONE-ACETAMINOPHEN 5-325 MG TABS 134190 HYDROCODONE-ACETAMINOPHEN Inactive AVELOX 400 MG TABS 1 tab by mouth daily A VELOX 400 MG TABS 569644 MOXIFLOXACIN HCL Inactive CHERATUSSIN AC 100-10 MG/5ML SYRP 1 tsp by mouth every 4 hours as needed for cough CHERATUSSIN AC 100-10 MG/5ML SYRP 508138 GUAIFENESIN-CODEINE Inactive TERBINAFINE HCL 250 MG TABS 1 qDay TERBINAFINE HCL 250 MG TABS 328212 TERBINAFINE HCL Inactive CHERATUSSIN AC 100-10 MG/5ML SYRP 1 tsp by mouth every 4 hours as needed for cough CHERATUSSIN AC 100-10 MG/5ML SYRP 173149 GUAIFENESIN-CODEINE Inactive ACETAMINOPHEN-CODEINE #3 300-30 MG TABS 1 PO Q 4-6 HRS PRN PAIN ACETAMINOPHEN-CODEINE #3 300-30 MG TABS 060804 ACETAMINOPHEN-CODEIN E Inactive CHERATUSSIN AC 100-10 MG/5ML SYRP 1 tsp by mouth every 4 hours as needed for cough CHERATUSSIN AC 100-10 MG/5ML SYRP 033143 GUAIFENESIN-CODEINE Inactive AUGMENTIN 875-125 MG TAB 1 tab by mouth twice daily with food 20 12/03/31 AUGMENTIN 875-125 MG TAB 448387 AMOXICILLIN-POT CLAVULA EFE Inactive CHERATUSSIN AC 100-10 MG/5ML SYRP take one tsp po Q 6hours prn c ough CHERATUSSIN AC 100-10 MG/5ML SYRP 788442 GUAIFENESIN-CO DEINE Inactive PROPRANOLOL HCL 60 MG TABS 1 PO Q D P ROPRANOLOL HCL 60 MG TABS 194624 PROPRANOLOL HCL Inactive TOPAMAX 50 MG TABS take 1 tab po BID for migraines. 12/07/10 TOPAMAX 50 MG TABS 491817 TOPIRAMATE Inactive TOPAMAX 25 MG TABS 1 qHS x 1 week, then 1 BID x 1 week, then 1 qAM and 2 qHS x 1 week, then 2 BID (migraine prevention) TOPAMAX 2 5 MG TABS 833333 TOPIRAMATE Inactive LYRICA 75 MG CAPS TAKE 1 CAPSULE BY MOUTH TWICE DAILY LYRICA 75 MG CAPS PREGABALIN Inactive SYMBICORT 160-4.5 MCG/ACT AERO 2 puffs bid with rinse after 2011 SYMBICORT 160-4.5 MCG/ACT AERO BUDESONIDE-FORMOT SÁNCHEZ FUMARATE Inactive PROMETHAZINE-CODEINE 6.25-10 MG/5ML SYRP 1 tsp by mouth ever y 8 hours prn cough PROMETHAZINE-CODEINE 6.25-10 MG/5ML SYRP 011491 PROMETHAZINE-CODEINE Inactive CYMBALTA 30 MG CPEP 1 cap by mouth daily CYMBALTA 30 MG CPEP 355576 DULOXETINE HCL Inactive PREMARIN 0.625 MG TABS TAKE 1 TAB BY MOUTH DAILY 07/25 PREMARIN 0.625 MG TABS ESTROGENS CONJUGATED Inactive CHERATUSSIN AC 100-10 MG/5ML SYRP 1 tsp by mouth every 4 hours as needed for cough CHERATUSSIN AC 100-10 MG/5ML SYRP 328667 GUAIFENESIN-CODEINE Inactive PROMETHAZINE-CODEINE 6.25-10 MG/5ML SYRP 1 tsp by mout h every 6 hours if needed for cough PROMETHAZINE-CODEINE 6.25-10 MG/5ML SYRP 912241 PROMETHAZINE-CODEINE Inactive CHERATUSSIN AC 100-10 MG/5ML SYRP 1 tsp by mouth every 4 hours as needed for cough CHERATUSSIN AC 100-10 MG/5ML SYRP 084411 GUAIFENESIN-CODEINE Inactive FLUTICASONE PROPIONATE 50 MCG/ACT SUSP 1 to 2 sprays each no stril daily FLUTICASONE PROPIONATE 50 MCG/ACT SUSP 162995 FLUTICASONE PROPIONATE Inactive ZITHROMAX Z-REYNA 250 MG TABS 2 today, then 1 daily for 4 days 201 04/09/17 ZITHROMAX Z-REYNA 250 MG TABS 8815298 AZITHROMYCIN Inac tive CEFDINIR 300 MG CAPS [...] q days 2-5 ZITHROMAX 250 MG TAB 9682565 AZITHROMYCIN Inactive CEFDINIR 300 MG CAPS by mouth twice a day CEFDINIR 300 MG CAPS 245124 CEFDINIR Inactive PREDNISONE 20 MG TAB 2 tabs daily for 3 days, 1 t ab daily for 3 days, 1/2 tab daily for 2 days PREDNISONE 20 MG TAB 365289 PREDNISON E Inactive AVELOX 400 MG TABS 1 tab by mouth daily A VELOX 400 MG TABS 129540 MOXIFLOXACIN HCL Inactive AVELOX 400 MG TABS 1 tab by mouth daily A VELOX 400 MG TABS 872460 MOXIFLOXACIN HCL Inactive PREDNISONE 20 MG TAB Take 3 tabs daily for 3 days , 2 tabs daily for 3 days, 1 tab daily for 3 days, 1/2 tab daily for 3 days PREDNISONE 20 MG TAB 514986 PREDNISONE Inactive LEVAQUIN 500 MG TABS take one po QD LEVAQUIN 50 0 MG TABS 154921 LEVOFLOXACIN Inactive AZITHROMYCIN 250 MG TABS 2 po qd x 1 day, then 1 po qd x 4 days AZITHROMYCIN 250 MG TABS 3994988 AZITHROMYCIN Inactiv e MEDROL (REYNA) 4 MG TABS 6 tabs on day 1, 5 tabs on d ay 2, 4 tabs on day 3, 3 tabs on day 4, 2 tabs on day 5, 1 tab on day 6 MEDROL (REYNA) 4 MG TABS METHYLPREDNISOLONE Inactive CHERATUSSIN AC 100-10 MG/5ML SYRP 5ml po q6hr PRN Cough CHERATUSSIN AC 100-10 MG/5ML SYRP 177038 GUAIFENESIN-CODEINE Inacti ve TRIAMCINOLONE ACETONIDE 0.1 % CREA apply three times daily prn r beatrice TRIAMCINOLONE ACETONIDE 0.1 % CREA 0812352 TRIAMCINOLONE ACETONIDE Inactive AZITHROMYCIN 250 MG TABS 2 po qd x 1 day, then 1 po qd x 4 days AZITHROMYCIN 250 MG TABS 0733573 AZITHROMYCIN Inactiv e MEDROL (REYNA) 4 MG [...] days 20 13/03/08 AMOXICILLIN 500 MG CAP 336420 AMOXICILLIN Inactive AMOXICILLIN 500 MG CAP 1 tab by mouth 3 times daily x 10 days 20 14/04/28 AMOXICILLIN 500 MG CAP 221342 AMOXICILLIN Inactive ZITHROMAX 250 MG TAB 2 po today, then 1 po q days 2-5 ZITHROMAX 250 MG TAB 1267943 AZITHROMYCIN Inactive AUGMENTIN 875-125 MG TAB 1 po BID x 10 days AUGMENTIN 875- 125 MG TAB 111337 AMOXICILLIN-POT CLAVULANATE Inactive ZITHROMAX Z-REYNA 250 MG TABS 2 today, then 1 daily for 4 days 201 08/07/20 ZITHROMAX Z-REYNA 250 MG TABS 7654966 AZITHROMYCIN Inac tive ZITHROMAX 250 MG TAB 2 po today, then 1 po q days 2-5 ZITHROMAX 250 MG TAB 0092136 AZITHROMYCIN Inactive ZITHROMAX Z-REYNA 250 MG TABS 2 today, then 1 daily for 4 days 201 08/30/03 ZITHROMAX Z-REYNA 250 MG TABS 9271954 AZITHROMYCIN Inac tive Vital Signs Date Name [...] Measured Encounters Code Encounter Date Provider Facility CPT-97225 Level 3 Est. Patient 18:16:00 ARTILLERY SPECIALIST Blaine HERNANDEZ [facility] CPT-06950 Level 3 Est. Patient 09:45:49 ARTILLERY SPECIALIST Carlton rich MD [facility] CPT-28720 Level 3 Est. Patient 13:19:20 CDT Carlton rich MD [facility] CPT-23378 Level 3 Est. Patient 13:06:43 CDT Ridge tam DO [facility] CPT-12815 Level 3 Est. Patient 10:03:07 CDT Perez Mora MD [facility]-58433 Level 3 Est. Patient 19:50:35 ARTILLERY SPECIALIST Carlton rich MD [facility] CPT-04354 Level 4 Est. Patient 18:05:01 ARTILLERY SPECIALIST Carlton rich MD [facility]-37657 Level 3 Est. Patient 10:45:55 ARTILLERY SPECIALIST Hugo Restrepo MD [facility] CPT-61736 Level 3 Est. Patient 14:12:49 CDT Griffin HERNANDEZ [facility] CPT-08048 Level 3 Est. Patient 17:37:24 CDT Carlton rich MD [facility] CPT-81081 Level 3 Est. Patient 16:51:54 CDT Carlton rich MD [facility] CPT-85982 Level 3 Est. Patient 12:18:11 CDT Hugo Restrepo MD [facility] CPT-10153 Level 3 Est. Patient 11:30:25 CDT Marcy crisostomo MD PhD [facility] CPT-36242 Level 3 Est. Patient 12:00:47 ARTILLERY SPECIALIST Carlton rich MD [facility] CPT-08156 Level 3 Est. Patient 16:31:06 ARTILLERY SPECIALIST Carlton rich MD [facility] CPT-76776 Level 3 Est. Patient 16:23:24 ARTILLERY SPECIALIST Ridge tam DO [facility] CPT-98067 Level 3 Est. Patient 12:34:12 CDT Carlton rich MD [facility] CPT-93870 Level 2 Est. Patient 15:43:33 CDT Robi armstrong MD [facility] CPT-73290 Level 4 Est. Patient 14:04:44 CDT Carlton rich MD [facility] CPT-03415 Level 3 Est. Patient 05:47:59 CDT Ridge tam DO [facility] CPT-20470 Level 3 Est. Patient 13:12:53 ARTILLERY SPECIALIST Carlton rich MD [facility] CPT-98697 Level 3 Est. Patient 14:26:53 CDT Hugo Restrepo MD [facility] Procedures Code Procedure Name Date Entry Date Standard Desc ription CPT-60620 Hip bilat min 2V w AP pelvis 13:16:20 CDT 2 CPT-34535 Pelvis only 13:07:33 CDT CPT-63667 Spec Collection and Handling Fee 11:25:12 C DT CPT-91612 Fluzone Quadrivalent Intramuscular Suspe nsion 0.5 ML 14:31:55 CDT CPT-64958 Abx/Therapy Injection 13:28:47 ARTILLERY SPECIALIST CPT-J2930 Solu Medrol 125 mg (Methyl Prednisolone Sodium Succinate) 12:00:47 ARTILLERY SPECIALIST CPT-02040 Venipuncture Draw Fee 11:33:31 CDT CPT-12510 EKG Trac and Interp 11:21:09 CDT CPT-22091 Chest 2V Frontal and Lat 11:21:09 CDT 12/15 CPT-72386 Venipuncture Draw Fee 08:02:34 CDT CPT-36642 Chest 2V Frontal and Lat 05:47:59 CDT 06/05
--- OUTSIDE RECORDS SUMMARY | 2019-10-08 08:33 | XMS REPORT | Clinical Summary ---
Author Author Caitlin, Juliana Martinez Organization [facility] Address Unknown Phone Unavailable Allergies, Adverse [...] po qd x 5 days P REDNISONE [id number] No Longer Active Perez Mora MD Active PROAIR HFA 108 (90 BASE) MCG/ACT INHALATION AEROSOL SO LUTION 2 puffs four times a day as needed ALBUTEROL SULFATE 38615493173 No Long er Active Becky FUENTES Active ASPIRIN 81 MG ORAL TABLET 1 po qd ASPIRIN 27071837927 Active Carlton Hu MD Active PREDNISONE 20 MG ORAL TABLET 1 tab twice daily for 3 d ay, then one daily for three days PREDNISONE 07970230615 No Longer Active Carlton Hu MD Active AUGMENTIN 875-125 MG ORAL TABLET 1 po BID x 10 days 16/03/22 AMOXICILLIN-POT CLAVULANATE 26972697279 No Longer Active Elise Garcia APRN Active TERBINAFINE HCL 250 MG ORAL TABLET 1 qDay for nail fungus 7 TERBINAFINE HCL 15453615387 No Longer Active Carlton Hu MD A ctive TUSSIONEX PENNKINETIC ER 10-8 MG/5ML ORAL SUSPENSION E XTENDED RELEASE 5ml po q12hr PRN Cough HYDROCOD POLST-CHLORPHEN POLST 13370492408 Active Perez Mora MD Active AMOXICILLIN 500 MG ORAL CAPSULE 1 cap by mouth three times a day AMOXICILLIN 04169461965 No Longer Active Carlton Hu MD Active ELMIRON 100 MG ORAL CAPSULE 2 tablets in the am and 1 tablet at hs PENTOSAN POLYSULFATE SODIUM 18928731927 No Longer Active Robert Hu MD Active MUCINEX D 60-600 MG ORAL TABLET EXTENDED RELEASE 12 HOUR 1 t ab po q am PSEUDOEPHEDRINE-GUAIFENESIN 75932402856 No Longer Act nael Carlton Hu MD Active MUCINEX DM MAXIMUM STRENGTH 60-1200 MG ORAL TABLET EXT ENDED RELEASE 12 HOUR 1 tab po q am DEXTROMETHORPHAN-GUAIFENESIN 30350151287 No Longer Active Carlton Hu MD Active TUSSIONEX PENNKINETIC ER 10-8 MG/5ML ORAL SUSPENSION E XTENDED RELEASE 5ml po q12hr PRN Cough HYDROCOD POLST-CHLORPHEN POLST 5 4601553456 No Longer Active Carlton Hu MD Active POTASSIUM CHLORIDE ER 20 MEQ ORAL TABLET EXTENDED RELE ASE Take 1 by mouth 4 times daily for 7 days POTASSIUM CHLORIDE 98472036956 No Longer Active Carlton Hu MD Active ZITHROMAX 250 MG ORAL TABLET 2 po today, then 1 po q days 2-5 20 14/09/04 AZITHROMYCIN 32976733312 No Longer Active Elise Garcia APRN Active TUSSIONEX PENNKINETIC ER 10-8 MG/5ML ORAL SUSPENSION E XTENDED RELEASE 5 ml twice a day as needed for cough HYDROCOD POLST-CHLORPH EN POLST 20650656739 No Longer Active Elise Garcia APRN Active MONTELUKAST SODIUM 10 MG ORAL TABLET 1 po daily for Allergy MONTELUKAST SODIUM 17683836087 Active Carlton Hu MD Ac tive TUSSIONEX PENNKINETIC ER 10-8 MG/5ML ORAL SUSPENSION E XTENDED RELEASE 5ml po q12hr PRN Cough HYDROCOD POLST-CHLORPHEN POLST 5 9247602115 No Longer Active Hugo Restrepo MD Active GABAPENTIN 100 MG ORAL CAPSULE 1 po BID for fibromyalgia GABAPENTIN 12582599827 Active Carlton Hu MD Active LYRICA 100 MG ORAL CAPSULE Take 1 tab po BID for fibromyalgia 20 11/08/21 PREGABALIN 42844169726 No Longer Active Elise Garcia APRN A ctive PREDNISONE 20 MG ORAL TABLET 2 tabs daily for 3 days, 1 tab daily for 3 days, 1/2 tab daily for 2 days PREDNISONE 03004560104 No Longer Active Diya De Guzman APRN Active TUSSIONEX PENNKINETIC ER 10-8 MG/5ML ORAL SUSPENSION E XTENDED RELEASE 5 mL PO q 12 hrs PRN cough HYDROCOD POLST-CHLORPHEN POLST 058006 01263 No Longer Active Jillina Gege RICEN Active FLUTICASONE PROPIONATE 50 MCG/ACT NASAL SUSPENSION 2 s prays each nostril daily until bottle is empty FLUTICASONE PROPIONATE 929867824 99 No Longer Active Diya De Guzman APRN Active ASMANEX 60 METERED DOSES 220 MCG/INH INHALATION AEROSO L POWDER BREATH ACTIVATED 1 puff bid with rinse after MOMETASONE FUROATE 7090071 4102 No Longer Active Diya De Guzman 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 ZITHROMAX Z-REYNA 250 MG ORAL TABLET 2 today, then 1 daily for 4 d ays AZITHROMYCIN 01210365084 No Longer Active Elise Garcia APRN Active TUSSIONEX PENNKINETIC ER 10-8 MG/5ML ORAL SUSPENSION E XTENDED RELEASE 5ml po q12hr PRN Cough HYDROCOD POLST-CHLORPHEN POLST 5 5795261187 No Longer Active Elise Garcia APRN Active PREDNISONE 20 MG ORAL TABLET 2 tabs daily for 3 days, 1 tab daily for 3 days, 1/2 tab daily for 2 days PREDNISONE 21431293912 No Longer Active Diya De Guzman APRN Active AMOXICILLIN 500 MG ORAL CAPSULE 2 po BID x 10 days 201 09/29/08 AMOXICILLIN 03057168756 No Longer Active Diya De Guzman APRN Act nael SINGULAIR 10 MG ORAL TABLET 1 po qday for allergies 20 14/01/12 MONTELUKAST SODIUM 12418243384 No Longer Active Carlton Hu MD Active LEVAQUIN 500 MG ORAL TABLET 1 tablet by mouth daily 20 13/09/24 LEVOFLOXACIN 48827082269 No Longer Active Carlton Hu MD Acti ve FLUTICASONE PROPIONATE 50 MCG/ACT NASAL SUSPENSION 2 s prays each nostril daily for 2 weeks, then 1 spray each nostril daily. FLUTICASONE PROPIONATE 55873193892 Active Elise Garcia APRN Active ZITHROMAX 250 MG ORAL TABLET 2 po today, then 1 po q days 2-5 20 13/08/10 AZITHROMYCIN 89934870739 No Longer Active Elise Garcia APRN Active XANAX 0.5 MG ORAL TABLET one tablet by mouth daily prn anxiety 2015 ALPRAZOLAM 87982730922 Active Carlton Hu MD Active CYMBALTA 30 MG ORAL CAPSULE DELAYED RELEASE PARTICLES 1 cap by mouth daily for depression DULOXETINE HCL 52925678965 Active Carlton beltrán MD Active CEFDINIR 300 MG ORAL CAPSULE 1 po BID x 10 days CEFDINIR 05934697008 No Longer Active Carlton Hu MD Active ZOCOR 40 MG ORAL TABLET 1 tab by mouth daily SI MVASTATIN 57957919633 No Longer Active Carlton Hu MD Active CYCLOBENZAPRINE HCL 10 MG ORAL TABLET 1 tablet by mouth BID prn had pain CYCLOBENZAPRINE HCL 39443134379 No Longer Active Jayden Hu MD Active LEVOFLOXACIN 500 MG ORAL TABLET 1 tab PO daily x 10 days LEVOFLOXACIN 78933531452 No Longer Active Carlton Hu MD Acti ve PREDNISONE 20 MG ORAL TABLET 3 tab PO qd x 2d, 2 tab P O qd x 2d, 1 tab PO qd x 2d, 1/2 tab PO qd x 2d PREDNISONE 25489897486 No Lo nger Active Carlton Hu MD Active FLUTICASONE PROPIONATE 50 MCG/ACT NASAL SUSPENSION 1 t o 2 sprays each nostril daily FLUTICASONE PROPIONATE 57275547248 No Longer Ac tive Blaine HERNANDEZ Active CHERATUSSIN AC 100-10 MG/5ML ORAL SYRUP 1 tsp by mouth every 4 hours as needed for cough GUAIFENESIN-CODEINE 45898383029 No Longe r Active Blaine HERNANDEZ Active PROMETHAZINE-CODEINE 6.25-10 MG/5ML ORAL SYRUP 1 tsp b y mouth every 6 hours if needed for cough PROMETHAZINE-CODEINE 17283643398 No Longer Active Blaine HERNANDEZ Active CHERATUSSIN AC 100-10 MG/5ML ORAL SYRUP 1 tsp by mouth every 4 hours as needed for cough GUAIFENESIN-CODEINE 36086957798 No Longe r Active Blaine HERNANDEZ Active ZITHROMAX Z-REYNA 250 MG ORAL TABLET 2 today, then 1 daily for 4 d ays AZITHROMYCIN 44366150308 No Longer Active Columba Raida Act nael ZITHROMAX 250 MG ORAL TABLET 2 po today, then 1 po q days 2-5 20 14/03/21 AZITHROMYCIN 65136626944 No Longer Active Carlton Hu MD Active ZITHROMAX Z-REYNA 250 MG ORAL TABLET 2 today, then 1 daily for 4 d ays AZITHROMYCIN 20997564362 No Longer Active Columba Raida Act nael AUGMENTIN 875-125 MG ORAL TABLET 1 po BID x 10 days 13/01/20 AMOXICILLIN-POT CLAVULANATE 74918994449 No Longer Active Diya De Guzman APRN Active ZITHROMAX 250 MG ORAL TABLET 2 po today, then 1 po q days 2-5 20 12/08/14 AZITHROMYCIN 35762835110 No Longer Active Carlton Hu MD Active TRAMADOL HCL 50 MG ORAL TABLET 1 po tid with ES Tylenol TRAMADOL HCL 53350795286 Active Carlton Hu MD Active PREMARIN 0.625 MG ORAL TABLET TAKE 1 TAB BY MOUTH DAILY ESTROGENS CONJUGATED 26838678607 No Longer Active Ridge Bess DO A ctive CYMBALTA 30 MG ORAL CAPSULE DELAYED RELEASE PARTICLES 1 cap by mouth daily DULOXETINE HCL 87935348332 No Longer Active Ridge tam DO Active AMOXICILLIN 500 MG ORAL CAPSULE 1 tab by mouth 3 times daily x 10 days AMOXICILLIN 26904028654 No Longer Active Carlton bustamante MD Active AMOXICILLIN 500 MG ORAL CAPSULE 1 tab by mouth 3 times daily x 10 days AMOXICILLIN 61983950577 No Longer Active Carlton bustamante MD Active PROMETHAZINE-CODEINE 6.25-10 MG/5ML ORAL SYRUP 1 tsp b y mouth every 8 hours prn cough PROMETHAZINE-CODEINE 14616901105 No Longer Acti ve Carlton Hu MD Active MEDROL 4 MG ORAL TABLET THERAPY PACK 6 pills x 1 day, then 5 pills x 1 day then 4 pills x 1 day, then 3 pills x 1 day, then 2 pills x 1 day, then 1 pill x 1 day, then stop METHYLPREDNISOLONE 95298689872 No Long er Active Perez Mora MD Active AZITHROMYCIN 250 MG ORAL TABLET 2 po qd x 1 day, then 1 po q d x 4 days AZITHROMYCIN 44913160375 No Longer Active Perez Ambriz MD Active SYMBICORT 160-4.5 MCG/ACT INHALATION AEROSOL 2 puffs bid wit h rinse after BUDESONIDE-FORMOTEROL FUMARATE 67567284457 N o Longer Active Perez Mora MD Active LYRICA 75 MG ORAL CAPSULE TAKE 1 CAPSULE BY MOUTH TWICE DAILY PREGABALIN 80197858427 No Longer Active Carlton Hu MD Acti ve TOPAMAX 25 MG ORAL TABLET 1 qHS x 1 week, then 1 BID x 1 week, then 1 qAM and 2 qHS x 1 week, then 2 BID (migraine prevention) T OPIRAMATE 59637477662 No Longer Active Jerica FUENTES Active TOPAMAX 50 MG ORAL TABLET take 1 tab po BID for migraines. 07/02 TOPIRAMATE 93334592529 No Longer Active Jerica FUENTES Active TOPAMAX 100 MG ORAL TABLET Take 1 tablet po bid TO PIRAMATE 97841849325 Active Carlton Hu MD Active TRIAMCINOLONE ACETONIDE 0.1 % EXTERNAL CREAM apply three roger es daily prn rash TRIAMCINOLONE ACETONIDE 55387179449 No Longer Active Carlton Hu MD Active PAXIL 40 MG ORAL TABLET take 1 tab po qday for depression 0 PAROXETINE HCL 92084532124 Active Carlton Hu MD Active CHERATUSSIN AC 100-10 MG/5ML ORAL SYRUP 5ml po q6hr PRN Cough 20 13/04/14 GUAIFENESIN-CODEINE 24187346187 No Longer Active Carlton Hu MD Active MEDROL 4 MG ORAL TABLET THERAPY PACK 6 tabs on day 1, 5 tabs on day 2, 4 tabs on day 3, 3 tabs on day 4, 2 tabs on day 5, 1 tab on day 6 2013 METHYLPREDNISOLONE 88044765408 No Longer Active Perez Mora MD Active AZITHROMYCIN 250 MG ORAL TABLET 2 po qd x 1 day, then 1 po q d x 4 days AZITHROMYCIN 61230337864 No Longer Active Perez Ambriz MD Active PROPRANOLOL HCL 60 MG ORAL TABLET 1 PO Q D PROPRANOLOL HCL 38928234562 No Longer Active Perez Mora MD Activ e CHERATUSSIN AC 100-10 MG/5ML ORAL SYRUP take one tsp po Q 6h ours prn cough GUAIFENESIN-CODEINE 78681082884 No Longer Active Zia Mora MD Active AUGMENTIN 875-125 MG ORAL TABLET 1 tab by mouth twice daily with food AMOXICILLIN-POT CLAVULANATE 20091465537 No Longer Act nael Perez Mora MD Active CHERATUSSIN AC 100-10 MG/5ML ORAL SYRUP 1 tsp by mouth every 4 hours as needed for cough GUAIFENESIN-CODEINE 30077383358 No Longe r Active Hugo Restrepo MD Active ACETAMINOPHEN-CODEINE #3 300-30 MG ORAL TABLET 1 PO Q 4-6 HRS PA N PAIN ACETAMINOPHEN-CODEINE 46330726411 No Longer Active Hugo Restrepo MD Active LEVAQUIN 500 MG ORAL TABLET take one po QD LEVO FLOXACIN 63777326277 No Longer Active Griffin HERNANDEZ Active PREDNISONE 20 MG ORAL TABLET Take 3 tabs daily for 3 d ays, 2 tabs daily for 3 days, 1 tab daily for 3 days, 1/2 tab daily for 3 days 11/07 PREDNISONE 18198630234 No Longer Active Carlton Hu MD Acti ve AVELOX 400 MG ORAL TABLET 1 tab by mouth daily MOXIFLOXACIN HCL 90719076436 No Longer Active Carlton Hu MD Active CHERATUSSIN AC 100-10 MG/5ML ORAL SYRUP 1 tsp by mouth every 4 hours as needed for cough GUAIFENESIN-CODEINE 62129849667 No Longe r Active Hugo Restrepo MD Active AVELOX 400 MG ORAL TABLET 1 tab by mouth daily MOXIFLOXACIN HCL 85003124943 No Longer Active Marcy De La Rosa MD PhD Active TERBINAFINE HCL 250 MG ORAL TABLET 1 qDay T ERBINAFINE HCL 00434715006 No Longer Active Marcy De La Rosa MD PhD Active CHERATUSSIN AC 100-10 MG/5ML ORAL SYRUP 1 tsp by mouth every 4 hours as needed for cough GUAIFENESIN-CODEINE 98834134764 No Longe r Active Marcy De La Rosa MD PhD Active AVELOX 400 MG ORAL TABLET 1 tab by mouth daily MOXIFLOXACIN HCL 85528297891 No Longer Active Marcy De La Rosa MD PhD Active HYDROCODONE-ACETAMINOPHEN 5-325 MG ORAL TABLET 1 po q 6hr PRN co ugh HYDROCODONE-ACETAMINOPHEN 48854958619 No Longer Active Marcy De La Rosa MD PhD Active PREDNISONE 20 MG ORAL TABLET 2 tabs daily for 3 days, 1 tab daily for 3 days, 1/2 tab daily for 2 days PREDNISONE 92991956507 No Longer Active Carlton Hu MD Active CEFDINIR 300 MG ORAL CAPSULE by mouth twice a day 2011 CEFDINIR 71975431726 No Longer Active Carlton Hu MD Acti ve HYDROCHLOROTHIAZIDE 25 MG ORAL TABLET 1 TAB PO DAILY HYDROCHLOROTHIAZIDE 09226457650 Active ALFREDO Holly Ac tive ACETAMINOPHEN-CODEINE #3 300-30 MG ORAL TABLET 1 tablet po q 4-6 hrs prn pain ACETAMINOPHEN-CODEINE 74354962482 No Longer Active Ridge Bess DO Active ZITHROMAX 250 MG ORAL TABLET 2 po today, then 1 po q days 2-5 20 03/07/07 AZITHROMYCIN 47293918703 No Longer Active Carlton Hu MD Active CHERATUSSIN AC 100-10 MG/5ML ORAL SYRUP take 1 tsp po q4-6 h ours prn cough GUAIFENESIN-CODEINE 99076290988 No Longer Active Jayden Hu MD Active ACETAMINOPHEN-CODEINE #3 300-30 MG ORAL TABLET 1 PO Q 4-6 HR PRN PAIN ACETAMINOPHEN-CODEINE 47302286103 No Longer Active Arnol Hu MD Active LORTAB 7.5-500 MG/15ML ORAL ELIXIR 7.5 ml po q 4 hour prn cough HYDROCODONE-ACETAMINOPHEN 23404096757 No Longer Active Carlton Hu MD Active PREDNISONE 20 MG ORAL TABLET 1 po bid 3 days, then 1 po q day 3 days PREDNISONE 42407606751 No Longer Active Carlton Hu MD Active CEFDINIR 300 MG ORAL CAPSULE by mouth twice a day 2011 CEFDINIR 06172797141 No Longer Active Carlton Hu MD Acti ve CEFDINIR 300 MG ORAL CAPSULE by mouth twice a day 2010 CEFDINIR 18770794857 No Longer Active Carlton Hu MD Acti ve CEFDINIR 300 MG ORAL CAPSULE by mouth twice a day 2010 CEFDINIR 82413817816 No Longer Active Carlton Hu MD Acti ve TESSALON PERLES 100 MG ORAL CAPSULE 1 tablet by mouth 3 times daily as needed for cough BENZONATATE 97215815112 No Longer Active Carlton Hu MD Active CEFDINIR 300 MG ORAL CAPSULE by mouth twice a day 2010 CEFDINIR 64400326701 No Longer Active Carlton Hu MD Acti ve ZITHROMAX Z-REYNA 250 MG ORAL TABLET 2 today, then 1 daily for 4 d ays AZITHROMYCIN 64848093379 No Longer Active Hugo Restrepo MD Active TESSALON PERLES 100 MG ORAL CAPSULE 1 tablet by mouth 3 times daily as needed for cough TESSALON PERLES 100 MG ORAL CAPSULE 90586 7 BENZONATATE Inactive PREDNISONE 20 MG ORAL TABLET 1 po bid 3 days, then 1 po q day 3 days PREDNISONE 20 MG ORAL TABLET 766887 PREDNISONE Greer ctive LORTAB 7.5-500 MG/15ML ORAL [...] cough CHERATUSSIN AC 100-10 MG/5ML ORAL SYRUP 102864 GUAIFENESIN-CODEINE Inactive ACETAMINOPHEN-CODEINE #3 300-30 MG ORAL TABLET 1 tablet po q 4-6 hrs prn pain ACETAMINOPHEN-CODEINE #3 300-30 MG ORAL TABLET ACETAMINOPHEN-CODEINE Inactive HYDROCODONE-ACETAMINOPHEN 5-325 MG ORAL TABLET 1 po q 6hr PRN co ugh HYDROCODONE-ACETAMINOPHEN 5-325 MG ORAL TABLET 093477 HYDROCODONE-ACETAMINOPHEN Inactive AVELOX 400 MG ORAL TABLET 1 tab by mouth daily AVELOX 400 MG ORAL TABLET 126282 MOXIFLOXACIN HCL Inactive CHERATUSSIN AC 100-10 MG/5ML ORAL SYRUP 1 tsp by mouth every 4 hours as needed for cough CHERATUSSIN AC 100-10 MG/5ML ORAL SYRUP 9 72791 GUAIFENESIN-CODEINE Inactive TERBINAFINE HCL 250 MG ORAL TABLET 1 qDay 07/08 TERBINAFINE HCL 250 MG ORAL TABLET 020982 TERBINAFINE HCL Inactive CHERATUSSIN AC 100-10 MG/5ML ORAL SYRUP 1 tsp by mouth every 4 hours as needed for cough CHERATUSSIN AC 100-10 MG/5ML ORAL SYRUP 9 99142 GUAIFENESIN-CODEINE Inactive ACETAMINOPHEN-CODEINE #3 300-30 MG ORAL TABLET 1 PO Q 4-6 HRS PA N PAIN ACETAMINOPHEN-CODEINE #3 300-30 MG ORAL TABLET ACETAMINOPHEN-CODEINE Inactive CHERATUSSIN AC 100-10 MG/5ML ORAL SYRUP 1 tsp by mouth every 4 hours as needed for cough CHERATUSSIN AC 100-10 MG/5ML ORAL SYRUP 9 16588 GUAIFENESIN-CODEINE Inactive AUGMENTIN 875-125 MG ORAL TABLET 1 tab by mouth twice daily with food AUGMENTIN 875-125 MG ORAL TABLET 674682 AMOXICIL MADELINE-POT CLAVULANATE Inactive CHERATUSSIN AC 100-10 MG/5ML ORAL SYRUP take one tsp po Q 6h ours prn cough CHERATUSSIN AC 100-10 MG/5ML ORAL SYRUP 938337 GUAIFENESIN-CODEINE Inactive PROPRANOLOL HCL 60 MG ORAL TABLET 1 PO Q D PROPRANOLOL HCL 60 MG ORAL TABLET 635154 PROPRANOLOL HCL Inactive TOPAMAX 50 MG ORAL TABLET take 1 tab po BID for migraines. 07/02 TOPAMAX 50 MG ORAL TABLET 664703 TOPIRAMATE Inacti ve TOPAMAX 25 MG ORAL TABLET 1 qHS x 1 week, then 1 BID x 1 week, then 1 qAM and 2 qHS x 1 week, then 2 BID (migraine prevention) TOPAMAX 25 MG ORAL TABLET 021464 TOPIRAMATE Inactive LYRICA 75 MG ORAL CAPSULE TAKE 1 CAPSULE BY MOUTH TWICE DAILY LYRICA 75 MG ORAL CAPSULE PREGABALIN Inactive SYMBICORT 160-4.5 MCG/ACT INHALATION AEROSOL 2 puffs bid wit h rinse after SYMBICORT 160-4.5 MCG/ACT INHALATION AEROSOL BUDESONIDE- FORMOTEROL FUMARATE Inactive PROMETHAZINE-CODEINE 6.25-10 MG/5ML ORAL SYRUP 1 tsp b y mouth every 8 hours prn cough PROMETHAZINE-CODEINE 6.25-10 MG/ 5ML ORAL SYRUP 171943 PROMETHAZINE-CODEINE Inactive CYMBALTA 30 MG ORAL CAPSULE DELAYED RELEASE PARTICLES 1 cap by mouth daily CYMBALTA 30 MG ORAL CAPSULE DELAYED RELE ASE PARTICLES 166899 DULOXETINE HCL Inactive PREMARIN 0.625 MG ORAL TABLET TAKE 1 TAB BY MOUTH DAILY PREMARIN 0.625 MG ORAL TABLET ESTROGENS CONJUGATED Inactive CHERATUSSIN AC 100-10 MG/5ML ORAL SYRUP 1 tsp by mouth every 4 hours as needed for cough CHERATUSSIN AC 100-10 MG/5ML ORAL SYRUP 9 10530 GUAIFENESIN-CODEINE Inactive PROMETHAZINE-CODEINE 6.25-10 MG/5ML ORAL SYRUP 1 tsp b y mouth every 6 hours if needed for cough PROMETHAZINE-CODEINE 6.25-10 MG/5ML ORAL SYRUP 236811 PROMETHAZINE-CODEINE Inactive CHERATUSSIN AC 100-10 MG/5ML ORAL SYRUP 1 tsp by mouth every 4 hours as needed for cough CHERATUSSIN AC 100-10 MG/5ML ORAL SYRUP 9 77319 GUAIFENESIN-CODEINE Inactive FLUTICASONE PROPIONATE 50 MCG/ACT NASAL SUSPENSION 1 t o 2 sprays each nostril daily FLUTICASONE PROPIONATE 50 MCG/AC T NASAL SUSPENSION 1612545 FLUTICASONE PROPIONATE Inactive PREDNISONE 20 MG ORAL TABLET 3 tab PO qd x 2d, 2 tab P O qd x 2d, 1 tab PO qd x 2d, 1/2 tab PO qd x 2d PREDNISONE 20 MG ORAL TAB LET 321904 PREDNISONE Inactive LEVOFLOXACIN 500 MG ORAL TABLET 1 tab PO daily x 10 days LEVOFLOXACIN 500 MG ORAL TABLET 570358 LEVOFLOXACIN Inactive CYCLOBENZAPRINE HCL 10 MG ORAL TABLET 1 tablet by mouth BID prn had pain CYCLOBENZAPRINE HCL 10 MG ORAL TABLET 368089 CYCLOBENZAPRINE HCL Inactive ZOCOR 40 MG ORAL TABLET 1 tab by mouth daily 4 ZOCOR 40 MG ORAL TABLET 413686 SIMVASTATIN Inactive TUSSIONEX PENNKINETIC ER 10-8 MG/5ML [...] FLUTICASONE PROPIO EFE 50 MCG/ACT NASAL SUSPENSION 8072953 FLUTICASONE PROPIONATE Inactive TUSSIONEX PENNKINETIC ER 10-8 [...] three days PREDNISONE 20 MG ORAL TABLET 214059 PREDNIS ONE Inactive PROAIR HFA 108 (90 BASE) MCG/ACT INHALATION AEROSOL SO LUTION 2 puffs four times a day as needed PROAIR HFA 108 (90 B ASE) MCG/ACT INHALATION AEROSOL SOLUTION ALBUTEROL SULFATE Inactive ZITHROMAX Z-REYNA 250 MG ORAL TABLET 2 today, then 1 daily for 4 d ays ZITHROMAX Z-REYNA 250 MG ORAL TABLET 757505 AZITHROMYCIN Inactive CEFDINIR 300 MG ORAL CAPSULE by mouth twice a day 2010 CEFDINIR 300 MG ORAL CAPSULE 634750 CEFDINIR Inactive CEFDINIR 300 MG ORAL CAPSULE [...] 2-5 03/07/07 ZITHROMAX 250 MG ORAL TABLET 533246 AZITHROMYCIN Greer ctive CEFDINIR 300 MG ORAL CAPSULE by mouth twice a day 2011 CEFDINIR 300 MG ORAL CAPSULE 20020704 CEFDINIR Inactive PREDNISONE 20 MG ORAL TABLET 2 tabs daily for 3 days, 1 tab daily for 3 days, 1/2 tab daily for 2 days PREDNISONE 20 MG ORAL T ABLET 052280 PREDNISONE Inactive AVELOX 400 MG ORAL TABLET 1 tab by mouth daily AVELOX 400 MG ORAL TABLET 762030 MOXIFLOXACIN HCL Inactive AVELOX 400 MG ORAL TABLET 1 tab by mouth daily AVELOX 400 MG ORAL TABLET 939856 MOXIFLOXACIN HCL Inactive PREDNISONE 20 MG ORAL TABLET Take 3 tabs daily for 3 d ays, 2 tabs daily for 3 days, 1 tab daily for 3 days, 1/2 tab daily for 3 days 11/07 PREDNISONE 20 MG ORAL TABLET 472415 PREDNISONE Inactive LEVAQUIN 500 MG ORAL TABLET take one po QD LEVAQUIN 500 MG ORAL TABLET 865393 LEVOFLOXACIN Inactive AZITHROMYCIN 250 MG ORAL TABLET 2 po qd x 1 day, then 1 po q d x 4 days AZITHROMYCIN 250 MG ORAL TABLET 737520 AZITHROMY GIOVANNI Inactive MEDROL 4 MG ORAL TABLET THERAPY PACK 6 tabs on day 1, 5 tabs on day 2, 4 tabs on day 3, 3 tabs on day 4, 2 tabs on day 5, 1 tab on day 6 2013 MEDROL 4 MG ORAL TABLET THERAPY PACK 387716 METHYLPREDNISOLONE Greer ctive CHERATUSSIN AC 100-10 MG/5ML ORAL SYRUP 5ml po q6hr PRN Cough 20 13/04/14 CHERATUSSIN AC 100-10 MG/5ML ORAL SYRUP 608326 GUAIFENE SIN-CODEINE Inactive TRIAMCINOLONE ACETONIDE 0.1 % EXTERNAL CREAM apply three roger es daily prn rash TRIAMCINOLONE ACETONIDE 0.1 % EXTERNAL CREAM 101 4314 TRIAMCINOLONE ACETONIDE Inactive AZITHROMYCIN 250 MG ORAL TABLET 2 po qd x 1 day, then 1 po q d x 4 days AZITHROMYCIN 250 MG ORAL TABLET 793622 AZITHROMY GIOVANNI Inactive MEDROL 4 MG ORAL TABLET THERAPY PACK 6 pills x 1 day, then 5 pills x 1 day then 4 pills x 1 day, then 3 pills x 1 day, then 2 pills x 1 day, then 1 pill x 1 day, then stop MEDROL 4 MG ORAL TABLET THERAPY PACK 838358 METHYLPREDNISOLONE Inactive AMOXICILLIN 500 MG ORAL CAPSULE 1 tab by mouth 3 times daily x 10 days AMOXICILLIN 500 MG ORAL CAPSULE 363073 AMOXICILL IN Inactive AMOXICILLIN 500 MG ORAL CAPSULE 1 tab by mouth 3 times daily x 10 days AMOXICILLIN 500 MG ORAL CAPSULE 171927 AMOXICILL IN Inactive ZITHROMAX 250 MG ORAL TABLET 2 po today, then 1 po q days 2-5 20 12/08/14 ZITHROMAX 250 MG ORAL TABLET 867994 AZITHROMYCIN Greer ctive AUGMENTIN 875-125 MG ORAL TABLET 1 po BID x 10 days 20 13/01/20 AUGMENTIN 875-125 MG ORAL TABLET 502575 AMOXICILLIN-POT CLAVULANATE Inactive ZITHROMAX Z-REYNA 250 MG ORAL TABLET 2 today, then 1 daily for 4 d ays ZITHROMAX Z-REYNA 250 MG ORAL TABLET 903805 AZITHROMYCIN Inactive ZITHROMAX 250 MG ORAL TABLET 2 po today, then 1 po q days 2-5 20 14/03/21 ZITHROMAX 250 MG ORAL TABLET 840933 AZITHROMYCIN [place] ctive ZITHROMAX Z-REYNA 250 MG ORAL TABLET 2 today, then 1 daily for 4 d ays ZITHROMAX Z-REYNA 250 MG ORAL TABLET 346840 AZITHROMYCIN Inactive CEFDINIR 300 MG ORAL CAPSULE 1 po BID x 10 days 06/21 CEFDINIR 300 MG ORAL CAPSULE 20020704 CEFDINIR Inactive ZITHROMAX 250 MG ORAL TABLET 2 po today, then 1 po q days 2-5 20 13/08/10 ZITHROMAX 250 MG ORAL TABLET 707008 AZITHROMYCIN [place] ctive LEVAQUIN 500 MG ORAL TABLET 1 tablet by mouth daily 13/09/24 LEVAQUIN 500 MG ORAL TABLET 19971102 LEVOFLOXACIN Inactive SINGULAIR 10 MG ORAL TABLET 1 po qday for allergies 20 14/01/12 SINGULAIR 10 MG ORAL TABLET 20010504 MONTELUKAST SODIUM Inactive AMOXICILLIN 500 MG ORAL CAPSULE 2 po BID x 10 days 201 09/29/08 AMOXICILLIN 500 MG ORAL CAPSULE 676731 AMOXICILLIN Inactive PREDNISONE 20 MG ORAL TABLET 2 tabs daily for 3 days, 1 tab daily for 3 days, 1/2 tab daily for 2 days PREDNISONE 20 MG ORAL T ABLET 826328 PREDNISONE Inactive ZITHROMAX Z-REYNA 250 MG ORAL TABLET 2 today, then 1 daily for 4 d ays ZITHROMAX Z-REYNA 250 MG ORAL TABLET 284037 AZITHROMYCIN Inactive PREDNISONE 20 MG ORAL TABLET 2 tabs daily for 3 days, 1 tab daily for 3 days, 1/2 tab daily for 2 days PREDNISONE 20 MG ORAL T ABLET 530363 PREDNISONE Inactive ZITHROMAX 250 MG ORAL TABLET 2 po today, then 1 po q days 2-5 20 14/09/04 ZITHROMAX 250 MG ORAL TABLET 632856 AZITHROMYCIN Greer ctive AMOXICILLIN 500 MG ORAL CAPSULE 1 cap by mouth three times a day AMOXICILLIN 500 MG ORAL CAPSULE 542488 AMOXICILLIN Inactive TERBINAFINE HCL 250 MG ORAL TABLET 1 qDay for nail fungus 7 TERBINAFINE HCL 250 MG ORAL TABLET 480635 TERBINAFINE HCL Inact nael AUGMENTIN 875-125 MG ORAL TABLET 1 po BID x 10 days 16/03/22 AUGMENTIN 875-125 MG ORAL TABLET 617139 AMOXICILLIN-POT CLAVULANATE Inactive PREDNISONE 20 MG ORAL TABLET 2 po qd x 5 days PREDNISONE 20 MG ORAL TABLET 184715 PREDNISONE Inactive Vital Signs Date Name Value [...] - Chem istry sodium, serum 132 mmol/L 593-332 3095/07/12 potassium, serum 2.7 mmol/L 3.5-5.2 chloride, serum 93 mmol/L 98-107 carbon dioxide, venous blood 30.8 mmol/L 21.0-32 .0 blood glucose 107 mg/dL 65-110 calcium, serum 9.3 mg/dL 8.5-10.1 urea nitrogen, blood 12 mg/dL 7-18 creatinine, serum 1.00 mg/dL 0.60-1.30 sodium, serum 142 mmol/L 217-993 1755/07/17 potassium, serum 4.2 mmol/L 3.5-5.2 chloride, serum 106 mmol/L 98-107 carbon dioxide, venous blood 29.9 mmol/L 21.0-32 .0 blood glucose 108 mg/dL 65-110 calcium, serum 9.1 mg/dL 8.5-10.1 urea nitrogen, blood 11 mg/dL 7-18 creatinine, serum 0.81 mg/dL 0.60-1.30 Lab Report: Rapid Strep - Lab Microbial identification kit, rapid strep method Negative Negative Encounters Code Encounter Date Provider Facility CPT-87416 Level 3 Est. Patient 11:34:49 PHOTONICS ENGINEER Perez Mora MD [facility] CPT-70468 Level 4 Est. Patient 09:51:32 PHOTONICS ENGINEER Carlton rich MD [facility] CPT-56955 Level 3 Est. Patient 10:26:00 PHOTONICS ENGINEER Elise stephenson [facility]-75513 Level 3 Est. Patient 13:35:41 PHOTONICS ENGINEER Carlton rich MD [facility] CPT-06099 Level 3 Est. Patient 10:03:52 PHOTONICS ENGINEER Carlton rich MD [facility]-57138 Level 3 Est. Patient 12:17:50 CDT Hugo Restrepo MD [facility] CPT-63441 Level 3 Est. Patient 13:42:38 CDT Elise stephenson [facility] CPT-03901 Level 3 Est. Patient 13:23:51 CDT Diya cobian [facility] CPT-14356 Level 3 Est. Patient 14:22:19 PHOTONICS ENGINEER Diya cobian [facility]-88893 Level 3 Est. Patient 10:11:46 CDT Carlton rich MD [facility] CPT-86249 Level 3 Est. Patient 17:29:43 CDT Elise Are ll CERTIFIED WELLNESS PROGRAM MANAGER [facility] CPT-13441 Level 3 Est. Patient 11:58:06 CDT Elise Are ll CERTIFIED WELLNESS PROGRAM MANAGER [facility] CPT-24670 Level 4 Est. Patient 14:36:51 CDT Carlton rich MD [facility] CPT-44541 Level 3 Est. Patient 18:16:00 PHOTONICS ENGINEER Blaine Freeman [facility] CPT-12095 Level 3 Est. Patient 09:45:49 PHOTONICS ENGINEER Carlton rich MD [facility] CPT-89973 Level 3 Est. Patient 13:19:20 CDT Carlton rich MD [facility]-74674 Level 3 Est. Patient 13:06:43 CDT Ridge tam DO [facility] CPT-35457 Level 3 Est. Patient 10:03:07 CDT Perez Mora MD [facility] CPT-91854 Level 3 Est. Patient 19:50:35 PHOTONICS ENGINEER Carlton rich MD [facility] CPT-07958 Level 4 Est. Patient 18:05:01 PHOTONICS ENGINEER Carlton rich MD [facility] CPT-29137 Level 3 Est. Patient 10:45:55 PHOTONICS ENGINEER Hugo Restrepo MD [facility] CPT-39341 Level 3 Est. Patient 14:12:49 CDT Griffin lincoln [facility] CPT-64865 Level 3 Est. Patient 17:37:24 CDT Carlton rich MD [facility] CPT-43035 Level 3 Est. Patient 16:51:54 CDT Carlton rich MD [facility] CPT-75158 Level 3 Est. Patient 12:18:11 CDT Hugo Restrepo MD [facility] CPT-92340 Level 3 Est. Patient 11:30:25 CDT Marcy crisostomo MD PhD [facility] CPT-49613 Level 3 Est. Patient 12:00:47 PHOTONICS ENGINEER Carlton rich MD [facility] CPT-79933 Level 3 Est. Patient 16:31:06 PHOTONICS ENGINEER Carlton rich MD [facility] CPT-73982 Level 3 Est. Patient 16:23:24 PHOTONICS ENGINEER Ridge tam [facility] CPT-26526 Level 3 Est. Patient 12:34:12 CDT Carlton rich MD [facility] CPT-69662 Level 2 Est. Patient 15:43:33 CDT Robi armstrong MD [facility] CPT-89810 Level 4 Est. Patient 14:04:44 CDT Carlton rich MD [facility] CPT-95442 Level 3 Est. Patient 05:47:59 CDT Ridge tam [facility] CPT-43607 Level 3 Est. Patient 13:12:53 PHOTONICS ENGINEER Carlton rich MD [facility] CPT-14022 Level 3 Est. Patient 14:26:53 CDT Hugo Restrepo MD [facility] Procedures Code Procedure Name Date Entry Date Standard Desc ription CPT-J1040 Depo Medrol 80 mg (Methyl Prednisolone A cetate) 10:42:44 CDT CPT-J1100 Decadron 8mg (Dexamethasone) 10:42:44 CDT 2 CPT-J0696 Rocephin 1gm Inj Solr 14:32:13 CDT CPT-J1020 Depo Medrol 60 mg (Methyl Prednisolone A cetate) 14:32:13 CDT CPT-J1100 Decadron 6mg (Dexamethasone) 14:32:13 CDT 2 CPT-40346 Hip bilat min 2V w AP pelvis 13:16:20 CDT 2 CPT-40040 Pelvis only 13:07:33 CDT CPT-90811 Spec Collection and Handling Fee 11:25:12 C DT CPT-35841 Fluzone Quadrivalent Intramuscular Suspe nsion 0.5 ML 14:31:55 CDT CPT-30270 Abx/Therapy Injection 13:28:47 PHOTONICS ENGINEER CPT-J2930 Solu Medrol 125 mg (Methyl Prednisolone Sodium Succinate) 12:00:47 PHOTONICS ENGINEER CPT-63551 Venipuncture Draw Fee 11:33:31 CDT CPT-77410 EKG Trac and Interp 11:21:09 CDT CPT-18868 Chest 2V Frontal and Lat 11:21:09 CDT 12/15 CPT-70327 Venipuncture Draw Fee 08:02:34 CDT CPT-70530 Chest 2V Frontal and Lat 05:47:59 CDT 06/05
--- OUTSIDE RECORDS SUMMARY | 2019-10-08 08:34 | XMS REPORT | Clinical Summary ---
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 Unspecified sinusitis (chronic) Bronchitis-Acute 466.0 Active Carlton Hu MD Acute bronchitis URI - acute 465.9 Active Elise Whitmore STEAM ROOM ATTENDANT Acute upper respiratory infections of unspecified site Pharyngitis acute 462 Active Eilse Whitmore A PRN Acute pharyngitis Rhinitis, acute 460 Active Elise Whitmore APR N Acute nasopharyngitis [common cold] Sinusitis 473.9 Active Diya De Guzman STEAM ROOM ATTENDANT Unspecified sinusitis (chronic) Bronchitis 490 Active Diya De Guzman STEAM ROOM ATTENDANT Bronchitis, not specified as acute or chronic [...] CAPS 1 po BID for fibromyalgia GABAPENTIN 24426774900 Active Elise Whitmore STEAM ROOM ATTENDANT Active LYRICA 100 MG CAPS Take 1 tab po BID for fibromyalgia PREGABALIN 73914869873 No Longer Active Elise Whitmore STEAM ROOM ATTENDANT Acti ve PROAIR HFA 108 (90 BASE) MCG/ACT AERS 2 puffs four times a d ay as needed ALBUTEROL SULFATE 36122601077 Active Jillina Gege APR N Active MUCINEX DM MAXIMUM STRENGTH 60-1200 MG [id number] 1 tab po q am 2016 DEXTROMETHORPHAN-GUAIFENESIN 46960112288 Active Jillina Frabrayan STEAM ROOM ATTENDANT Active TUSSIONEX PENNKINETIC ER 10-8 MG/5ML LQCR 5ml po q12hr PRN Cough 20 14/06/21 HYDROCOD POLST-CHLORPHEN POLST 40994279620 Active Carlton Hu MD Active PREDNISONE 20 MG TAB 2 tabs daily for 3 days, 1 t ab daily for 3 days, 1/2 tab daily for 2 days PREDNISONE 20843031278 No Longer Active Jillina Cesarl STEAM ROOM ATTENDANT Active TUSSIONEX PENNKINETIC ER 10-8 MG/5ML ORAL LQCR 5 mL PO q 12 hrs PRN cough HYDROCOD POLST-CHLORPHEN POLST 21223333217 No Longer Active Jillina Frazell STEAM ROOM ATTENDANT Active FLUTICASONE PROPIONATE 50 MCG/ACT SUSP 2 sprays each n ostril daily until bottle is empty FLUTICASONE PROPIONATE 38375266318 No Longer Ac tive Jillina Frakerriel STEAM ROOM ATTENDANT Active ASMANEX 60 METERED DOSES 220 MCG/INH AEPB 1 puff bid with ri nse after MOMETASONE FUROATE 98864983129 No Longer Active Venullina Darlin meneses STEAM ROOM ATTENDANT Active ZITHROMAX Z-REYNA 250 MG TABS 2 today, then 1 daily for 4 days 201 09/29/14 AZITHROMYCIN 97530728002 No Longer Active Elisedeirdre Whitmore APRN Active TUSSIONEX PENNKINETIC ER 10-8 MG/5ML LQCR 5ml po q12hr PRN Cough HYDROCOD POLST-CHLORPHEN POLST 22352117515 No Longer Active Elisedeirdre Whitmore APRN Active MUCINEX D 60-600 MG [id number] 1 tab po q am PSEUDOEPHEDRINE-GUAIFENESIN 46621587509 Active Jillina Frazell STEAM ROOM ATTENDANT Active PREDNISONE 20 MG TAB 2 tabs daily for 3 days, 1 t ab daily for 3 days, 1/2 tab daily for 2 days PREDNISONE 79780807166 No Longer Active Jillina Frazell STEAM ROOM ATTENDANT Active AMOXICILLIN 500 MG CAPS 2 po BID x 10 days AMOX ICILLIN 09391054727 No Longer Active Jillina Frazell STEAM ROOM ATTENDANT Active SINGULAIR 10 MG TABS 1 po qday for allergies 2 MONTELUKAST SODIUM 97368382411 No Longer Active Carlton Hu MD Acti ve LEVAQUIN 500 MG TAB 1 tablet by mouth daily LEV OFLOXACIN 15614010048 No Longer Active Carlton Hu MD Active FLUTICASONE PROPIONATE 50 MCG/ACT SUSP 2 sprays each n ostril daily for 2 weeks, then 1 spray each nostril daily. FLUTICASONE PRO PIONATE 52442520120 Active Elise Whitmore APRN Active ZITHROMAX 250 MG TAB 2 po today, then 1 po q days 2-5 AZITHROMYCIN 05223136648 No Longer Active Elise Whitmore APRN Acti ve XANAX 0.5 MG TABS one tablet by mouth daily prn anxiety ALPRAZOLAM 06213196967 Active Elise Whitmore APRN Active CYMBALTA 30 MG CPEP 1 cap by mouth daily for depression DULOXETINE HCL 82980810220 Active Carlton Hu MD Active CEFDINIR 300 MG CAPS 1 po BID x 10 days CEFDINI R 28849285507 No Longer Active Carlton Hu MD Active ZOCOR 40 MG TAB 1 tab by mouth daily SIMVASTATI N 52227846420 No Longer Active Carlton Hu MD Active CYCLOBENZAPRINE HCL 10 MG TABS 1 tablet by mouth BID prn had cherelle n CYCLOBENZAPRINE HCL 27880907234 No Longer Active Carlton Hu MD Active LEVOFLOXACIN 500 MG ORAL TABS 1 tab PO daily x 10 days LEVOFLOXACIN 81501226287 No Longer Active Carlton uH MD Acti ve PREDNISONE 20 MG ORAL TABS 3 tab PO qd x 2d, 2 tab PO qd x 2d, 1 tab PO qd x 2d, 1/2 tab PO qd x 2d PREDNISONE 68621014868 No Longer Active Carlton Hu MD Active FLUTICASONE PROPIONATE 50 MCG/ACT SUSP 1 to 2 sprays each no stril daily FLUTICASONE PROPIONATE 50303828174 No Longer Active T jaz HERNANDEZ Active CHERATUSSIN AC 100-10 MG/5ML SYRP 1 tsp by mouth every 4 hours as needed for cough GUAIFENESIN-CODEINE 86493701240 No Longer Activ e Blaine HERNANDEZ Active PROMETHAZINE-CODEINE 6.25-10 MG/5ML SYRP 1 tsp by mout h every 6 hours if needed for cough PROMETHAZINE-CODEINE 34862188421 No Long er Active Blaine HERNANDEZ Active CHERATUSSIN AC 100-10 MG/5ML SYRP 1 tsp by mouth every 4 hours as needed for cough GUAIFENESIN-CODEINE 58313098949 No Longer Activ e Blaine HERNANDEZ Active ZITHROMAX Z-REYNA 250 MG TABS 2 today, then 1 daily for 4 days 201 08/30/03 AZITHROMYCIN 96036017655 No Longer Active Columba Raida Act nael ZITHROMAX 250 MG TAB 2 po today, then 1 po q days 2-5 AZITHROMYCIN 95035038898 No Longer Active Carlton Hu MD Acti ve ZITHROMAX Z-REYNA 250 MG TABS 2 today, then 1 daily for 4 days 201 08/07/20 AZITHROMYCIN 25898190155 No Longer Active Columba Raida Act nael AUGMENTIN 875-125 MG TAB 1 po BID x 10 days AMOXICILLIN- POT CLAVULANATE 91187390328 No Longer Active Diya De Guzman APRN Active ZITHROMAX 250 MG TAB 2 po today, then 1 po q days 2-5 AZITHROMYCIN 99950305646 No Longer Active Carlton Hu MD Acti ve TRAMADOL HCL 50 MG TABS 1 po tid with ES Tylenol TRAMADOL HCL 91644825544 Active Carlton Hu MD Active PREMARIN 0.625 MG TABS TAKE 1 TAB BY MOUTH DAILY 07/25 ESTROGENS CONJUGATED 92694540206 No Longer Active Ridge Bess DO Active CYMBALTA 30 MG CPEP 1 cap by mouth daily DULOXE SNEHA HCL 60128759487 No Longer Active Ridge Bess DO Active AMOXICILLIN 500 MG CAP 1 tab by mouth 3 times daily x 10 days 20 14/04/28 AMOXICILLIN 60022014111 No Longer Active Carlton Hu MD Active AMOXICILLIN 500 MG CAP 1 tab by mouth 3 times daily x 10 days 20 13/03/08 AMOXICILLIN 49248595790 No Longer Active Carlton Hu MD Active PROMETHAZINE-CODEINE 6.25-10 MG/5ML SYRP 1 tsp by mouth ever y 8 hours prn cough PROMETHAZINE-CODEINE 52395454495 No Longer Active Robert Hu MD Active MEDROL (REYNA) 4 MG TABS 6 pills x 1 day, then 5 pill s x 1 day then 4 pills x 1 day, then 3 pills x 1 day, then 2 pills x 1 day, then 1 pill x 1 day, then stop METHYLPREDNISOLONE 66956291805 No Longer Active Parris Mora MD Active AZITHROMYCIN 250 MG TABS 2 po qd x 1 day, then 1 po qd x 4 days AZITHROMYCIN 20985308248 No Longer Active Perez Mora MD Active SYMBICORT 160-4.5 MCG/ACT AERO 2 puffs bid with rinse after 2011 BUDESONIDE-FORMOTEROL FUMARATE 40740168295 No Longer Active Perez Mora MD Active LYRICA 75 MG CAPS TAKE 1 CAPSULE BY MOUTH TWICE DAILY 2013 PREGABALIN 01601022146 No Longer Active Carlton Hu MD Active TOPAMAX 25 MG TABS 1 qHS x 1 week, then 1 BID x 1 week, then 1 qAM and 2 qHS x 1 week, then 2 BID (migraine prevention) TOPIRAMAT E 34008290929 No Longer Active Jerica FUENTES Active TOPAMAX 50 MG TABS take 1 tab po BID for migraines. 12/07/10 TOPIRAMATE 89519086764 No Longer Active Jerica AGUILARA Ac tive TOPAMAX 100 MG TABS Take 1 tablet po bid TOPIRAMATE 4999 9799547 Active Elise Whitmore APRN Active TRIAMCINOLONE ACETONIDE 0.1 % CREA apply three times daily prn r beatrice TRIAMCINOLONE ACETONIDE 17193058811 No Longer Active Carlton Hu MD Active PAXIL 40 MG TAB take 1 tab po qday for depression PAROXETINE HCL 88694844224 Active Elise Whitmore APRN Active CHERATUSSIN AC 100-10 MG/5ML SYRP 5ml po q6hr PRN Cough GUAIFENESIN-CODEINE 17801712754 No Longer Active Carlton Hu MD Active MEDROL (REYNA) 4 MG TABS 6 tabs on day 1, 5 tabs on d ay 2, 4 tabs on day 3, 3 tabs on day 4, 2 tabs on day 5, 1 tab on day 6 METHYLPREDNISOLONE 99245083316 No Longer Active Perez Mora MD Active AZITHROMYCIN 250 MG TABS 2 po qd x 1 day, then 1 po qd x 4 days AZITHROMYCIN 80566690979 No Longer Active Perez Mora MD Active PROPRANOLOL HCL 60 MG TABS 1 PO Q D PROPRANOL OL HCL 70585068689 No Longer Active Perez Mora MD Active CHERATUSSIN AC 100-10 MG/5ML SYRP take one tsp po Q 6hours prn c ough GUAIFENESIN-CODEINE 90037757386 No Longer Active Perez Means Active AUGMENTIN 875-125 MG TAB 1 tab by mouth twice daily with food 20 12/03/31 AMOXICILLIN-POT CLAVULANATE 23883983470 No Longer Active Chanel Mora MD Active CHERATUSSIN AC 100-10 MG/5ML SYRP 1 tsp by mouth every 4 hours as needed for cough GUAIFENESIN-CODEINE 27598178457 No Longer Activ e Hugo Restrepo MD Active ACETAMINOPHEN-CODEINE #3 300-30 MG TABS 1 PO Q 4-6 HRS PRN PAIN ACETAMINOPHEN-CODEINE 95177197542 No Longer Active Hugo Restrepo MD Active LEVAQUIN 500 MG TABS take one po QD LEVOFLOXACI N 12599200240 No Longer Active Griffin HERNANDEZ Active PREDNISONE 20 MG TAB Take 3 tabs daily for 3 days , 2 tabs daily for 3 days, 1 tab daily for 3 days, 1/2 tab daily for 3 days P REDNISONE 04417127091 No Longer Active Carlton Hu MD Active AVELOX 400 MG TABS 1 tab by mouth daily MOXIFLO XACIN HCL 57556845746 No Longer Active Carlton Hu MD Active CHERATUSSIN AC 100-10 MG/5ML SYRP 1 tsp by mouth every 4 hours as needed for cough GUAIFENESIN-CODEINE 96974987956 No Longer Activ e Hugo Restrepo MD Active AVELOX 400 MG TABS 1 tab by mouth daily MOXIFLO XACIN HCL 01065481618 No Longer Active Marcy De La Rosa MD PhD Active TERBINAFINE HCL 250 MG TABS 1 qDay TERBINAF INE HCL 16716855102 No Longer Active Marcy De La Rosa MD PhD Active CHERATUSSIN AC 100-10 MG/5ML SYRP 1 tsp by mouth every 4 hours as needed for cough GUAIFENESIN-CODEINE 08339104538 No Longer Activ e Marcy De La Rosa MD PhD Active AVELOX 400 MG TABS 1 tab by mouth daily MOXIFLO XACIN HCL 16552437656 No Longer Active Marcy De La Rosa MD PhD Active HYDROCODONE-ACETAMINOPHEN 5-325 MG TABS 1 po q 6hr PRN cough 201 05/09/16 HYDROCODONE-ACETAMINOPHEN 75447435056 No Longer Active Marcy De La Rosa MD PhD Active PREDNISONE 20 MG TAB 2 tabs daily for 3 days, 1 t ab daily for 3 days, 1/2 tab daily for 2 days PREDNISONE 17955952818 No Longer Active Carlton Hu MD Active CEFDINIR 300 MG CAPS by mouth twice a day CEFDI ODILIA 96380076028 No Longer Active Carlton Hu MD Active HYDROCHLOROTHIAZIDE 25 MG TABS 1 TAB PO DAILY H YDROCHLOROTHIAZIDE 78918410482 Active Carlton Hu MD Active ACETAMINOPHEN-CODEINE #3 300-30 MG TABS 1 tablet po q 4-6hrs prn pain ACETAMINOPHEN-CODEINE 58531045651 No Longer Active Ridge Bess DO Active ZITHROMAX 250 MG TAB 2 po today, then 1 po q days 2-5 AZITHROMYCIN 16874965235 No Longer Active Carlton Hu MD Acti ve CHERATUSSIN AC 100-10 MG/5ML SYRP take 1 tsp po q4-6 hours prn c ough GUAIFENESIN-CODEINE 92161435801 No Longer Active Carlton Hu MD Active ACETAMINOPHEN-CODEINE #3 300-30 MG TABS 1 PO Q 4-6 HR PRN PAIN 2 ACETAMINOPHEN-CODEINE 65949706579 No Longer Active Carlton rich MD Active LORTAB 7.5-500 MG/15ML ELIX 7.5 ml po q 4 hour prn cough HYDROCODONE-ACETAMINOPHEN 81865880651 No Longer Active Carlton Hu MD Active PREDNISONE 20 MG TAB 1 po bid 3 days, then 1 po q day 3 days 201 05/03/07 PREDNISONE 37854463791 No Longer Active Carlton Hu MD Active ELMIRON 100 MG CAPS 2 tablets in the am and 1 tablet at hs PENTOSAN POLYSULFATE SODIUM 02642676922 Active Carlton Hu MD Ac tive CEFDINIR 300 MG CAPS by mouth twice a day CEFDI ODILIA 34753670192 No Longer Active Carlton Hu MD Active CEFDINIR 300 MG CAPS by mouth twice a day CEFDI ODILIA 93728929108 No Longer Active Carlton Hu MD Active CEFDINIR 300 MG CAPS by mouth twice a day CEFDI ODILIA 22405000187 No Longer Active Carlton Hu MD Active TESSALON PERLES 100 MG CAP 1 tablet by mouth 3 times daily a s needed for cough BENZONATATE 25742310485 No Longer Active Carlton bustamante MD Active CEFDINIR 300 MG CAPS by mouth twice a day CEFDI ODILIA 03808674382 No Longer Active Carlton Hu MD Active ZITHROMAX Z-REYNA 250 MG TABS 2 today, then 1 daily for 4 days 201 04/09/17 AZITHROMYCIN 61995710415 No Longer Active Hugo Restrepo MD Active TESSALON PERLES 100 MG CAP 1 tablet by mouth 3 times daily a s needed for cough TESSALON PERLES 100 MG CAP 593196 BENZONATATE I nactive PREDNISONE 20 MG TAB 1 po bid 3 days, then 1 po q day 3 days 201 05/03/07 PREDNISONE 20 MG TAB 444060 PREDNISONE Inactive LORTAB 7.5-500 MG/15ML ELIX 7.5 ml po q 4 hour prn cough LORTAB 7.5-500 MG/15ML ELIX HYDROCODONE-ACETAMINOPHEN Inacti ve ACETAMINOPHEN-CODEINE #3 300-30 MG TABS 1 PO Q 4-6 HR PRN PAIN 2 ACETAMINOPHEN-CODEINE #3 300-30 MG TABS ACETAMIN OPHEN-CODEINE Inactive CHERATUSSIN AC 100-10 MG/5ML SYRP take 1 tsp po q4-6 hours prn c ough CHERATUSSIN AC 100-10 MG/5ML SYRP 600625 GUAIFENESIN-CO DEINE Inactive ACETAMINOPHEN-CODEINE #3 300-30 MG TABS 1 tablet po q 4-6hrs prn pain ACETAMINOPHEN-CODEINE #3 300-30 MG TABS ACETAMIN OPHEN-CODEINE Inactive HYDROCODONE-ACETAMINOPHEN 5-325 MG TABS 1 po q 6hr PRN cough 201 05/09/16 HYDROCODONE-ACETAMINOPHEN 5-325 MG TABS 110071 HYDROCODONE-ACETAMINOPHEN Inactive AVELOX 400 MG TABS 1 tab by mouth daily A VELOX 400 MG TABS 538607 MOXIFLOXACIN HCL Inactive CHERATUSSIN AC 100-10 MG/5ML SYRP 1 tsp by mouth every 4 hours as needed for cough CHERATUSSIN AC 100-10 MG/5ML SYRP 334578 GUAIFENESIN-CODEINE Inactive TERBINAFINE HCL 250 MG TABS 1 qDay TERBINAFINE HCL 250 MG TABS 074139 TERBINAFINE HCL Inactive CHERATUSSIN AC 100-10 MG/5ML SYRP 1 tsp by mouth every 4 hours as needed for cough CHERATUSSIN AC 100-10 MG/5ML SYRP 047479 GUAIFENESIN-CODEINE Inactive ACETAMINOPHEN-CODEINE #3 300-30 MG TABS 1 PO Q 4-6 HRS PRN PAIN ACETAMINOPHEN-CODEINE #3 300-30 MG TABS ACETAMINOPHEN-CODEIN E Inactive CHERATUSSIN AC 100-10 MG/5ML SYRP 1 tsp by mouth every 4 hours as needed for cough CHERATUSSIN AC 100-10 MG/5ML SYRP 667438 GUAIFENESIN-CODEINE Inactive AUGMENTIN 875-125 MG TAB 1 tab by mouth twice daily with food 20 12/03/31 AUGMENTIN 875-125 MG TAB 339828 AMOXICILLIN-POT CLAVULA EFE Inactive CHERATUSSIN AC 100-10 MG/5ML SYRP take one tsp po Q 6hours prn c ough CHERATUSSIN AC 100-10 MG/5ML SYRP 079937 GUAIFENESIN-CO DEINE Inactive PROPRANOLOL HCL 60 MG TABS 1 PO Q D P ROPRANOLOL HCL 60 MG TABS 161303 PROPRANOLOL HCL Inactive TOPAMAX 50 MG TABS take 1 tab po BID for migraines. 12/07/10 TOPAMAX 50 MG TABS 493289 TOPIRAMATE Inactive TOPAMAX 25 MG TABS 1 qHS x 1 week, then 1 BID x 1 week, then 1 qAM and 2 qHS x 1 week, then 2 BID (migraine prevention) TOPAMAX 2 5 MG TABS 874022 TOPIRAMATE Inactive LYRICA 75 MG CAPS TAKE 1 CAPSULE BY MOUTH TWICE DAILY LYRICA 75 MG CAPS PREGABALIN Inactive SYMBICORT 160-4.5 MCG/ACT AERO 2 puffs bid with rinse after 2011 SYMBICORT 160-4.5 MCG/ACT AERO BUDESONIDE-FORMOT SÁNCHEZ FUMARATE Inactive PROMETHAZINE-CODEINE 6.25-10 MG/5ML SYRP 1 tsp by mouth ever y 8 hours prn cough PROMETHAZINE-CODEINE 6.25-10 MG/5ML SYRP 321632 PROMETHAZINE-CODEINE Inactive CYMBALTA 30 MG CPEP 1 cap by mouth daily CYMBALTA 30 MG CPEP 437184 DULOXETINE HCL Inactive PREMARIN 0.625 MG TABS TAKE 1 TAB BY MOUTH DAILY 07/25 PREMARIN 0.625 MG TABS ESTROGENS CONJUGATED Inactive CHERATUSSIN AC 100-10 MG/5ML SYRP 1 tsp by mouth every 4 hours as needed for cough CHERATUSSIN AC 100-10 MG/5ML SYRP 361330 GUAIFENESIN-CODEINE Inactive PROMETHAZINE-CODEINE 6.25-10 MG/5ML SYRP 1 tsp by mout h every 6 hours if needed for cough PROMETHAZINE-CODEINE 6.25-10 MG/5ML SYRP 372790 PROMETHAZINE-CODEINE Inactive CHERATUSSIN AC 100-10 MG/5ML SYRP 1 tsp by mouth every 4 hours as needed for cough CHERATUSSIN AC 100-10 MG/5ML SYRP 281065 GUAIFENESIN-CODEINE Inactive FLUTICASONE PROPIONATE 50 MCG/ACT SUSP 1 to 2 sprays each no stril daily FLUTICASONE PROPIONATE 50 MCG/ACT SUSP 1849697 FLUTICASONE PROPIONATE Inactive PREDNISONE 20 MG ORAL TABS 3 tab PO qd x 2d, 2 tab PO qd x 2d, 1 tab PO qd x 2d, 1/2 tab PO qd x 2d PREDNISONE 20 MG ORAL TABS 627552 PREDNISONE Inactive LEVOFLOXACIN 500 MG ORAL TABS 1 tab PO daily x 10 days LEVOFLOXACIN 500 MG ORAL TABS 444762 LEVOFLOXACIN Inactive CYCLOBENZAPRINE HCL 10 MG TABS 1 tablet by mouth BID prn had cehrelle n CYCLOBENZAPRINE HCL 10 MG TABS 208942 CYCLOBENZAPRINE H CL Inactive ZOCOR 40 MG TAB 1 tab by mouth daily ZOCOR 40 M G TAB 395375 SIMVASTATIN Inactive TUSSIONEX PENNKINETIC ER 10-8 MG/5ML [...] empty FLUTICASONE PROPIONATE 50 MCG/ACT SUSP 17 80586 FLUTICASONE PROPIONATE Inactive TUSSIONEX PENNKINETIC ER 10-8 [...] 201 04/09/17 ZITHROMAX Z-REYNA 250 MG TABS 8424736 AZITHROMYCIN Inac tive CEFDINIR 300 MG CAPS [...] q days 2-5 ZITHROMAX 250 MG TAB 4846407 AZITHROMYCIN Inactive CEFDINIR 300 MG CAPS by mouth twice a day CEFDINIR 300 MG CAPS 578856 CEFDINIR Inactive PREDNISONE 20 MG TAB 2 tabs daily for 3 days, 1 t ab daily for 3 days, 1/2 tab daily for 2 days PREDNISONE 20 MG TAB 360932 PREDNISON E Inactive AVELOX 400 MG TABS 1 tab by mouth daily A VELOX 400 MG TABS 857363 MOXIFLOXACIN HCL Inactive AVELOX 400 MG TABS 1 tab by mouth daily A VELOX 400 MG TABS 515987 MOXIFLOXACIN HCL Inactive PREDNISONE 20 MG TAB Take 3 tabs daily for 3 days , 2 tabs daily for 3 days, 1 tab daily for 3 days, 1/2 tab daily for 3 days PREDNISONE 20 MG TAB 586864 PREDNISONE Inactive LEVAQUIN 500 MG TABS take one po QD LEVAQUIN 50 0 MG TABS 467840 LEVOFLOXACIN Inactive AZITHROMYCIN 250 MG TABS 2 po qd x 1 day, then 1 po qd x 4 days AZITHROMYCIN 250 MG TABS 7327456 AZITHROMYCIN Inactiv e MEDROL (REYNA) 4 MG TABS 6 tabs on day 1, 5 tabs on d ay 2, 4 tabs on day 3, 3 tabs on day 4, 2 tabs on day 5, 1 tab on day 6 MEDROL (REYNA) 4 MG TABS 394655 METHYLPREDNISOLONE Inactive CHERATUSSIN AC 100-10 MG/5ML SYRP 5ml po q6hr PRN Cough CHERATUSSIN AC 100-10 MG/5ML SYRP 651250 GUAIFENESIN-CODEINE Inacti ve TRIAMCINOLONE ACETONIDE 0.1 % CREA apply three times daily prn r beatrice TRIAMCINOLONE ACETONIDE 0.1 % CREA 1036117 TRIAMCINOLONE ACETONIDE Inactive AZITHROMYCIN 250 MG TABS 2 po qd x 1 day, then 1 po qd x 4 days AZITHROMYCIN 250 MG TABS 0988156 AZITHROMYCIN Inactiv e MEDROL (REYNA) 4 MG TABS 6 pills x 1 day, then 5 pill s x 1 day then 4 pills x 1 day, then 3 pills x 1 day, then 2 pills x 1 day, then 1 pill x 1 day, then stop MEDROL (REYNA) 4 MG TABS 474397 METHYLPREDNISOLONE Inactive AMOXICILLIN 500 MG CAP 1 tab by mouth 3 times daily x 10 days 20 13/03/08 AMOXICILLIN 500 MG CAP 318612 AMOXICILLIN Inactive AMOXICILLIN 500 MG CAP 1 tab by mouth 3 times daily x 10 days 20 14/04/28 AMOXICILLIN 500 MG CAP 693163 AMOXICILLIN Inactive ZITHROMAX 250 MG TAB 2 po today, then 1 po q days 2-5 ZITHROMAX 250 MG TAB 9434883 AZITHROMYCIN Inactive AUGMENTIN 875-125 MG TAB 1 po BID x 10 days AUGMENTIN 875- 125 MG TAB 288562 AMOXICILLIN-POT CLAVULANATE Inactive ZITHROMAX Z-REYNA 250 MG TABS 2 today, then 1 daily for 4 days 201 08/07/20 ZITHROMAX Z-REYNA 250 MG TABS 0073708 AZITHROMYCIN Inac tive ZITHROMAX 250 MG TAB 2 po today, then 1 po q days 2-5 ZITHROMAX 250 MG TAB 5086842 AZITHROMYCIN Inactive ZITHROMAX Z-REYNA 250 MG TABS 2 today, then 1 daily for 4 days 201 08/30/03 ZITHROMAX Z-REYNA 250 MG TABS 1301519 AZITHROMYCIN Inac tive CEFDINIR 300 MG CAPS 1 po BID x 10 days C EFDINIR 300 MG CAPS 057714 CEFDINIR Inactive ZITHROMAX 250 MG TAB 2 po today, then 1 po q days 2-5 ZITHROMAX 250 MG TAB 1437403 AZITHROMYCIN Inactive LEVAQUIN 500 MG TAB 1 tablet by mouth daily LEVAQUIN 500 MG TAB 681064 LEVOFLOXACIN Inactive SINGULAIR 10 MG TABS 1 po qday for allergies 2 SINGULAIR 10 MG TABS 20010504 MONTELUKAST SODIUM Inactive AMOXICILLIN 500 MG CAPS 2 po BID x 10 days AMOXICILLIN 500 MG CAPS 902101 AMOXICILLIN Inactive PREDNISONE 20 MG TAB 2 tabs daily for 3 days, 1 t ab daily for 3 days, 1/2 tab daily for 2 days PREDNISONE 20 MG TAB 548825 PREDNISON E Inactive ZITHROMAX Z-REYNA 250 MG TABS 2 today, then 1 daily for 4 days 201 09/29/14 ZITHROMAX Z-REYNA 250 MG TABS 6766629 AZITHROMYCIN Inac tive PREDNISONE 20 MG TAB 2 tabs daily for 3 days, 1 t ab daily for 3 days, 1/2 tab daily for 2 days PREDNISONE 20 MG TAB 125761 PREDNISON E Inactive Vital Signs Date Name [...] Measured Encounters Code Encounter Date Provider Facility CPT-96913 Level 3 Est. Patient 13:42:38 CDT Italo [facility] CPT-98859 Level 3 Est. Patient 13:23:51 CDT Diya cobian [facility] CPT-61154 Level 3 Est. Patient 14:22:19 SILVICULTURIST Diya cobian [facility] CPT-75207 Level 3 Est. Patient 10:11:46 CDT Carlton rich MD [facility] CPT-45883 Level 3 Est. Patient 17:29:43 CDT Italo [facility] CPT-91094 Level 3 Est. Patient 11:58:06 CDT Elise Cesar chelly BILL [facility]-31229 Level 4 Est. Patient 14:36:51 CDT Carlton rich MD [facility]-38390 Level 3 Est. Patient 18:16:00 SILVICULTURIST Blaine Freeman [facility]-49200 Level 3 Est. Patient 09:45:49 SILVICULTURIST Carlton rich MD [facility]-48722 Level 3 Est. Patient 13:19:20 CDT Carlton rich MD [facility]-93974 Level 3 Est. Patient 13:06:43 CDT Ridge tam DO [facility] CPT-30932 Level 3 Est. Patient 10:03:07 CDT Perez Mora MD [facility]-08448 Level 3 Est. Patient 19:50:35 SILVICULTURIST Carlton rich MD [facility]-27496 Level 4 Est. Patient 18:05:01 SILVICULTURIST Carlton rich MD [facility]-36400 Level 3 Est. Patient 10:45:55 SILVICULTURIST Hugo Restrepo MD [facility]-34366 Level 3 Est. Patient 14:12:49 CDT Griffin [facility]-69061 Level 3 Est. Patient 17:37:24 CDT Carlton rich MD [facility]-62967 Level 3 Est. Patient 16:51:54 CDT Carlton rich MD [facility]-94506 Level 3 Est. Patient 12:18:11 CDT Hugo Restrepo MD [facility]-51228 Level 3 Est. Patient 11:30:25 CDT Marcy crisostomo MD PhD [facility] CPT-18277 Level 3 Est. Patient 12:00:47 SILVICULTURIST Carlton rich MD [facility] CPT-65203 Level 3 Est. Patient 16:31:06 SILVICULTURIST Carlton rich MD [facility] CPT-08853 Level 3 Est. Patient 16:23:24 SILVICULTURIST Ridge tam [facility] CPT-16116 Level 3 Est. Patient 12:34:12 CDT Carlton rich MD [facility] CPT-49339 Level 2 Est. Patient 15:43:33 CDT Robi armstrong MD [facility] CPT-19207 Level 4 Est. Patient 14:04:44 CDT Carlton rich MD [facility] CPT-94800 Level 3 Est. Patient 05:47:59 CDT Ridge tam [facility] CPT-73097 Level 3 Est. Patient 13:12:53 SILVICULTURIST Carlton rich MD [facility] CPT-58228 Level 3 Est. Patient 14:26:53 CDT Hugo Restrepo MD [facility] Procedures Code Procedure Name Date Entry Date Standard Desc ription CPT-J0696 Rocephin 1gm Inj Solr 14:32:13 CDT CPT-J1020 Depo Medrol 60 mg (Methyl Prednisolone A cetate) 14:32:13 CDT CPT-J1100 Decadron 6mg (Dexamethasone) 14:32:13 CDT 2 CPT-32211 Hip bilat min 2V w AP pelvis 13:16:20 CDT 2 CPT-54910 Pelvis only 13:07:33 CDT CPT-23504 Spec Collection and Handling Fee 11:25:12 C DT CPT-11074 Fluzone Quadrivalent Intramuscular Suspe nsion 0.5 ML 14:31:55 CDT CPT-81373 Abx/Therapy Injection 13:28:47 SILVICULTURIST CPT-J2930 Solu Medrol 125 mg (Methyl Prednisolone Sodium Succinate) 12:00:47 SILVICULTURIST CPT-10858 Venipuncture Draw Fee 11:33:31 CDT CPT-33562 EKG Trac and Interp 11:21:09 CDT CPT-01075 Chest 2V Frontal and Lat 11:21:09 CDT 12/15 CPT-09128 Venipuncture Draw Fee 08:02:34 CDT CPT-88841 Chest 2V Frontal and Lat 05:47:59 CDT 06/05
--- OUTSIDE RECORDS SUMMARY | 2019-10-08 08:34 | XMS REPORT | Clinical Summary ---
Author Author Caitlin, Juliana Martinez Organization [facility] Address Unknown Phone Unavailable Allergies, Adverse Reactions, [...] Hu MD Headache Dermatitis, atopic 691.8 Active Cartlon beltrán MD Other atopic dermatitis and related [...] po tid with ES Tylenol TRAMADOL HCL [id number] Active Ridge Bess DO Active PREMARIN 0.625 MG TABS TAKE 1 TAB BY MOUTH DAILY 07/25 ESTROGENS CONJUGATED 98461157145 No Longer Active Ridge Bess DO Active CYMBALTA 30 MG CPEP 1 cap by mouth daily DULOXE SNEHA HCL 51555623670 No Longer Active Ridge Bess DO Active AMOXICILLIN 500 MG CAP 1 tab by mouth 3 times daily x 10 days 20 14/04/28 AMOXICILLIN 16249340063 No Longer Active Carlton Hu MD Active AMOXICILLIN 500 MG CAP 1 tab by mouth 3 times daily x 10 days 20 13/03/08 AMOXICILLIN 73282589023 No Longer Active Carlton Hu MD Active CHERATUSSIN AC 100-10 MG/5ML SYRP 1 tsp by mouth every 4 hours as needed for cough GUAIFENESIN-CODEINE 63127782863 Active Carlton banks MD Active CYCLOBENZAPRINE HCL 10 MG TABS 1 tablet by mouth BID prn had pain 2 CYCLOBENZAPRINE HCL 35340742453 Active Carlton Hu MD A ctive PROMETHAZINE-CODEINE 6.25-10 MG/5ML SYRP 1 tsp by mouth ever y 8 hours prn cough PROMETHAZINE-CODEINE 09317717706 No Longer Active Robert jade Hu MD Active MEDROL (REYNA) 4 MG TABS 6 pills x 1 day, then 5 pill s x 1 day then 4 pills x 1 day, then 3 pills x 1 day, then 2 pills x 1 day, then 1 pill x 1 day, then stop METHYLPREDNISOLONE 90123709518 No Longer Active Parris Mora MD Active AZITHROMYCIN 250 MG TABS 2 po qd x 1 day, then 1 po qd x 4 days AZITHROMYCIN 79802711732 No Longer Active Perez Mora MD Active SYMBICORT 160-4.5 MCG/ACT AERO 2 puffs bid with rinse after 2011 BUDESONIDE-FORMOTEROL FUMARATE 01814801940 No Longer Active Perez Mora MD Active LYRICA 75 MG CAPS TAKE 1 CAPSULE BY MOUTH TWICE DAILY 2013 PREGABALIN 67524694902 No Longer Active Carlton Hu MD Active LYRICA 100 MG CAPS Take 1 tab po BID for fibromyalgia PREGABALIN 88525572645 Active Carlton Hu MD Active TOPAMAX 25 MG TABS 1 qHS x 1 week, then 1 BID x 1 week, then 1 qAM and 2 qHS x 1 week, then 2 BID (migraine prevention) TOPIRAMAT E 94386264366 No Longer Active Jerica FUENTES Active TOPAMAX 50 MG TABS take 1 tab po BID for migraines. 12/07/10 TOPIRAMATE 99956038661 No Longer Active Jerica AGUILARA Ac tive TOPAMAX 100 MG TABS Take 1 tablet po bid TOPIRAMATE 4999 0913985 Active Carlton Hu MD Active TRIAMCINOLONE ACETONIDE 0.1 % CREA apply three times daily prn r beatrice TRIAMCINOLONE ACETONIDE 72073337543 No Longer Active Carlton Hu MD Active PAXIL 40 MG TAB take 1 tab po qday for depression PAROXETINE HCL 71372992369 Active Carlton Hu MD Active CHERATUSSIN AC 100-10 MG/5ML SYRP 5ml po q6hr PRN Cough GUAIFENESIN-CODEINE 53755685009 No Longer Active Carlton Hu MD Active MEDROL (REYNA) 4 MG TABS 6 tabs on day 1, 5 tabs on d ay 2, 4 tabs on day 3, 3 tabs on day 4, 2 tabs on day 5, 1 tab on day 6 METHYLPREDNISOLONE 90533012182 No Longer Active Perez Mora MD Active AZITHROMYCIN 250 MG TABS 2 po qd x 1 day, then 1 po qd x 4 days AZITHROMYCIN 16943550709 No Longer Active Perez Mora MD Active PROPRANOLOL HCL 60 MG TABS 1 PO Q D PROPRANOL OL HCL 20066385206 No Longer Active Perez Mora MD Active CHERATUSSIN AC 100-10 MG/5ML SYRP take one tsp po Q 6hours prn c ough GUAIFENESIN-CODEINE 51086272518 No Longer Active Perze Means Active AUGMENTIN 875-125 MG TAB 1 tab by mouth twice daily with food 20 12/03/31 AMOXICILLIN-POT CLAVULANATE 96275903111 No Longer Active Chanel Mora MD Active CHERATUSSIN AC 100-10 MG/5ML SYRP 1 tsp by mouth every 4 hours as needed for cough GUAIFENESIN-CODEINE 31832364710 No Longer Activ e Hugo Restrepo MD Active ACETAMINOPHEN-CODEINE #3 300-30 MG TABS 1 PO Q 4-6 HRS PRN PAIN ACETAMINOPHEN-CODEINE 58626452377 No Longer Active Hugo Restrepo MD Active LEVAQUIN 500 MG TABS take one po QD LEVOFLOXACI N 65772701902 No Longer Active Griffin HERNANDEZ Active PREDNISONE 20 MG TAB Take 3 tabs daily for 3 days , 2 tabs daily for 3 days, 1 tab daily for 3 days, 1/2 tab daily for 3 days P REDNISONE 41061624651 No Longer Active Carlton Hu MD Active AVELOX 400 MG TABS 1 tab by mouth daily MOXIFLO XACIN HCL 52563867053 No Longer Active Carlton Hu MD Active CHERATUSSIN AC 100-10 MG/5ML SYRP 1 tsp by mouth every 4 hours as needed for cough GUAIFENESIN-CODEINE 12949951518 No Longer Activ e Hugo Restrepo MD Active AVELOX 400 MG TABS 1 tab by mouth daily MOXIFLO XACIN HCL 43529643360 No Longer Active Marcy De La Rosa MD PhD Active TERBINAFINE HCL 250 MG TABS 1 qDay TERBINAF INE HCL 81842422487 No Longer Active Marcy De La Rosa MD PhD Active CHERATUSSIN AC 100-10 MG/5ML SYRP 1 tsp by mouth every 4 hours as needed for cough GUAIFENESIN-CODEINE 26450125144 No Longer Activ e Mracy De La Rosa MD PhD Active AVELOX 400 MG TABS 1 tab by mouth daily MOXIFLO XACIN HCL 54393098299 No Longer Active Marcy De La Rosa MD PhD Active HYDROCODONE-ACETAMINOPHEN 5-325 MG TABS 1 po q 6hr PRN cough 201 05/09/16 HYDROCODONE-ACETAMINOPHEN 27781155937 No Longer Active Marcy De La Rosa MD PhD Active PREDNISONE 20 MG TAB 2 tabs daily for 3 days, 1 t ab daily for 3 days, 1/2 tab daily for 2 days PREDNISONE 38656852008 No Longer Active Carlton Hu MD Active CEFDINIR 300 MG CAPS by mouth twice a day CEFDI ODILIA 01760005584 No Longer Active Carlton Hu MD Active ZOCOR 40 MG TAB 1 tab by mouth daily SIMVASTATIN 53558375604 Active Carlton Hu MD Active HYDROCHLOROTHIAZIDE 25 MG TABS 1 TAB PO DAILY H YDROCHLOROTHIAZIDE 69512916615 Active Carlton Hu MD Active ACETAMINOPHEN-CODEINE #3 300-30 MG TABS 1 tablet po q 4-6hrs prn pain ACETAMINOPHEN-CODEINE 69304809400 No Longer Active Ridge Bess DO Active ZITHROMAX 250 MG TAB 2 po today, then 1 po q days 2-5 AZITHROMYCIN 31942102577 No Longer Active Carlton Hu MD Acti ve CHERATUSSIN AC 100-10 MG/5ML SYRP take 1 tsp po q4-6 hours prn c ough GUAIFENESIN-CODEINE 17303453063 No Longer Active Carlton Hu MD Active ACETAMINOPHEN-CODEINE #3 300-30 MG TABS 1 PO Q 4-6 HR PRN PAIN 2 ACETAMINOPHEN-CODEINE 25021162595 No Longer Active Carlton rich MD Active LORTAB 7.5-500 MG/15ML ELIX 7.5 ml po q 4 hour prn cough HYDROCODONE-ACETAMINOPHEN 78174036547 No Longer Active Carlton Hu MD Active PREDNISONE 20 MG TAB 1 po bid 3 days, then 1 po q day 3 days 201 05/03/07 PREDNISONE 09661184773 No Longer Active Carlton Hu MD Active ELMIRON 100 MG CAPS 2 tablets in the am and 1 tablet at hs PENTOSAN POLYSULFATE SODIUM 46703161390 Active Gracie Moreno Active CEFDINIR 300 MG CAPS by mouth twice a day CEFDI ODILIA 60685873609 No Longer Active Carlton Hu MD Active CEFDINIR 300 MG CAPS by mouth twice a day CEFDI ODILIA 55869394301 No Longer Active Carlton Hu MD Active CEFDINIR 300 MG CAPS by mouth twice a day CEFDI ODILIA 51135478388 No Longer Active Carlton Hu MD Active TESSALON PERLES 100 MG CAP 1 tablet by mouth 3 times daily a s needed for cough BENZONATATE 57820401559 No Longer Active Carlton bustamante MD Active CEFDINIR 300 MG CAPS by mouth twice a day CEFDI ODILIA 66539401191 No Longer Active Carlton Hu MD Active ZITHROMAX Z-REYNA 250 MG TABS 2 today, then 1 daily for 4 days 201 04/09/17 AZITHROMYCIN 44920057143 No Longer Active Hugo Restrepo MD Active TESSALON PERLES 100 MG CAP 1 tablet by mouth 3 times daily a s needed for cough TESSALON PERLES 100 MG CAP 103174 BENZONATATE I nactive PREDNISONE 20 MG TAB 1 po bid 3 days, then 1 po q day 3 days 201 05/03/07 PREDNISONE 20 MG TAB 281714 PREDNISONE Inactive LORTAB 7.5-500 MG/15ML ELIX 7.5 ml po q 4 hour prn cough LORTAB 7.5-500 MG/15ML ELIX HYDROCODONE-ACETAMINOPHEN Inacti ve ACETAMINOPHEN-CODEINE #3 300-30 MG TABS 1 PO Q 4-6 HR PRN PAIN 2 ACETAMINOPHEN-CODEINE #3 300-30 MG TABS 676600 ACETAMIN OPHEN-CODEINE Inactive CHERATUSSIN AC 100-10 MG/5ML SYRP take 1 tsp po q4-6 hours prn c ough CHERATUSSIN AC 100-10 MG/5ML SYRP 938854 GUAIFENESIN-CO DEINE Inactive ACETAMINOPHEN-CODEINE #3 300-30 MG TABS 1 tablet po q 4-6hrs prn pain ACETAMINOPHEN-CODEINE #3 300-30 MG TABS 689622 ACETAMIN OPHEN-CODEINE Inactive HYDROCODONE-ACETAMINOPHEN 5-325 MG TABS 1 po q 6hr PRN cough 201 05/09/16 HYDROCODONE-ACETAMINOPHEN 5-325 MG TABS 211699 HYDROCODONE-ACETAMINOPHEN Inactive AVELOX 400 MG TABS 1 tab by mouth daily A VELOX 400 MG TABS 286809 MOXIFLOXACIN HCL Inactive CHERATUSSIN AC 100-10 MG/5ML SYRP 1 tsp by mouth every 4 hours as needed for cough CHERATUSSIN AC 100-10 MG/5ML SYRP 418903 GUAIFENESIN-CODEINE Inactive TERBINAFINE HCL 250 MG TABS 1 qDay TERBINAFINE HCL 250 MG TABS 383244 TERBINAFINE HCL Inactive CHERATUSSIN AC 100-10 MG/5ML SYRP 1 tsp by mouth every 4 hours as needed for cough CHERATUSSIN AC 100-10 MG/5ML SYRP 920052 GUAIFENESIN-CODEINE Inactive ACETAMINOPHEN-CODEINE #3 300-30 MG TABS 1 PO Q 4-6 HRS PRN PAIN ACETAMINOPHEN-CODEINE #3 300-30 MG TABS 908338 ACETAMINOPHEN-CODEIN E Inactive CHERATUSSIN AC 100-10 MG/5ML SYRP 1 tsp by mouth every 4 hours as needed for cough CHERATUSSIN AC 100-10 MG/5ML SYRP 335023 GUAIFENESIN-CODEINE Inactive AUGMENTIN 875-125 MG TAB 1 tab by mouth twice daily with food 20 12/03/31 AUGMENTIN 875-125 MG TAB 498068 AMOXICILLIN-POT CLAVULA EFE Inactive CHERATUSSIN AC 100-10 MG/5ML SYRP take one tsp po Q 6hours prn c ough CHERATUSSIN AC 100-10 MG/5ML SYRP 442975 GUAIFENESIN-CO DEINE Inactive PROPRANOLOL HCL 60 MG TABS 1 PO Q D P ROPRANOLOL HCL 60 MG TABS 011456 PROPRANOLOL HCL Inactive TOPAMAX 50 MG TABS take 1 tab po BID for migraines. 12/07/10 TOPAMAX 50 MG TABS 507688 TOPIRAMATE Inactive TOPAMAX 25 MG TABS 1 qHS x 1 week, then 1 BID x 1 week, then 1 qAM and 2 qHS x 1 week, then 2 BID (migraine prevention) TOPAMAX 2 5 MG TABS 557117 TOPIRAMATE Inactive LYRICA 75 MG CAPS TAKE 1 CAPSULE BY MOUTH TWICE DAILY LYRICA 75 MG CAPS PREGABALIN Inactive SYMBICORT 160-4.5 MCG/ACT AERO 2 puffs bid with rinse after 2011 SYMBICORT 160-4.5 MCG/ACT AERO BUDESONIDE-FORMOT SÁNCHEZ FUMARATE Inactive PROMETHAZINE-CODEINE 6.25-10 MG/5ML SYRP 1 tsp by mouth ever y 8 hours prn cough PROMETHAZINE-CODEINE 6.25-10 MG/5ML SYRP 916892 PROMETHAZINE-CODEINE Inactive CYMBALTA 30 MG CPEP 1 cap by mouth daily CYMBALTA 30 MG CPEP 039471 DULOXETINE HCL Inactive PREMARIN 0.625 MG TABS TAKE 1 TAB BY MOUTH DAILY 07/25 PREMARIN 0.625 MG TABS ESTROGENS CONJUGATED Inactive ZITHROMAX Z-REYNA 250 MG TABS 2 today, then 1 daily for 4 days 201 04/09/17 ZITHROMAX Z-REYNA 250 MG TABS 9053501 AZITHROMYCIN Inac tive CEFDINIR 300 MG CAPS [...] q days 2-5 ZITHROMAX 250 MG TAB 0475895 AZITHROMYCIN Inactive CEFDINIR 300 MG CAPS by mouth twice a day CEFDINIR 300 MG CAPS 20020704 CEFDINIR Inactive PREDNISONE 20 MG TAB 2 tabs daily for 3 days, 1 t ab daily for 3 days, 1/2 tab daily for 2 days PREDNISONE 20 MG TAB 026537 PREDNISON E Inactive AVELOX 400 MG TABS 1 tab by mouth daily A VELOX 400 MG TABS 396853 MOXIFLOXACIN HCL Inactive AVELOX 400 MG TABS 1 tab by mouth daily A VELOX 400 MG TABS 229224 MOXIFLOXACIN HCL Inactive PREDNISONE 20 MG TAB Take 3 tabs daily for 3 days , 2 tabs daily for 3 days, 1 tab daily for 3 days, 1/2 tab daily for 3 days PREDNISONE 20 MG TAB 621520 PREDNISONE Inactive LEVAQUIN 500 MG TABS take one po QD LEVAQUIN 50 0 MG TABS 524919 LEVOFLOXACIN Inactive AZITHROMYCIN 250 MG TABS 2 po qd x 1 day, then 1 po qd x 4 days AZITHROMYCIN 250 MG TABS 5522545 AZITHROMYCIN Inactiv e MEDROL (REYNA) 4 MG TABS 6 tabs on day 1, 5 tabs on d ay 2, 4 tabs on day 3, 3 tabs on day 4, 2 tabs on day 5, 1 tab on day 6 MEDROL (REYNA) 4 MG TABS METHYLPREDNISOLONE Inactive CHERATUSSIN AC 100-10 MG/5ML SYRP 5ml po q6hr PRN Cough CHERATUSSIN AC 100-10 MG/5ML SYRP 324828 GUAIFENESIN-CODEINE Inacti ve TRIAMCINOLONE ACETONIDE 0.1 % CREA apply three times daily prn r beatrice TRIAMCINOLONE ACETONIDE 0.1 % CREA 4535646 TRIAMCINOLONE ACETONIDE Inactive AZITHROMYCIN 250 MG TABS 2 po qd x 1 day, then 1 po qd x 4 days AZITHROMYCIN 250 MG TABS 6487971 AZITHROMYCIN Inactiv e MEDROL (REYNA) 4 MG [...] days 20 13/03/08 AMOXICILLIN 500 MG CAP 955021 AMOXICILLIN Inactive AMOXICILLIN 500 MG CAP 1 tab by mouth 3 times daily x 10 days 20 14/04/28 AMOXICILLIN 500 MG CAP 859089 AMOXICILLIN Inactive Vital Signs Date Name Value [...] [phone] Encounters Code Encounter Date Provider Facility CPT-96891 Level 3 Est. Patient 13:06:43 CDT Ridge tam DO [facility] CPT-80209 Level 3 Est. Patient 10:03:07 CDT Perez Mora MD [facility] CPT-93476 Level 3 Est. Patient 19:50:35 RELIABILITY TECHNICIAN Carlton rich MD [facility]-42793 Level 4 Est. Patient 18:05:01 RELIABILITY TECHNICIAN Carlton rich MD [facility]-36915 Level 3 Est. Patient 10:45:55 RELIABILITY TECHNICIAN Hugo Restrepo MD [facility]-33708 Level 3 Est. Patient 14:12:49 CDT Griffin [address]NANDEZ [facility]-21626 Level 3 Est. Patient 17:37:24 CDT Carlton rich MD [facility]-43419 Level 3 Est. Patient 16:51:54 CDT Carlton rich MD [facility]-76359 Level 3 Est. Patient 12:18:11 CDT Hugo Restrepo MD [facility]-60911 Level 3 Est. Patient 11:30:25 CDT Marcy crisostomo MD PhD [facility]-47098 Level 3 Est. Patient 12:00:47 RELIABILITY TECHNICIAN Carlton rich MD [facility]-63038 Level 3 Est. Patient 16:31:06 RELIABILITY TECHNICIAN Carlton rich MD [facility]-12518 Level 3 Est. Patient 16:23:24 RELIABILITY TECHNICIAN Ridge tam DO [facility]-51962 Level 3 Est. Patient 12:34:12 CDT Carlton rich MD [facility] CPT-50463 Level 2 Est. Patient 15:43:33 CDT Robi armstrong MD [facility]-80228 Level 4 Est. Patient 14:04:44 CDT Carlton rich MD [facility]-63811 Level 3 Est. Patient 05:47:59 CDT Ridge tam [facility] [place]-87198 Level 3 Est. Patient 13:12:53 RELIABILITY TECHNICIAN Carlton rich MD [facility] CPT-99342 Level 3 Est. Patient 14:26:53 CDT Hugo Restrepo MD [facility] Procedures Code Procedure Name Date Entry Date Standard Desc ription CPT-72183 Hip bilat min 2V w AP pelvis 13:16:20 CDT 2 CPT-56779 Pelvis only 13:07:33 CDT CPT-76779 Spec Collection and Handling Fee 11:25:12 C DT CPT-60276 Fluzone Quadrivalent Intramuscular Suspe nsion 0.5 ML 14:31:55 CDT CPT-53883 Abx/Therapy Injection 13:28:47 RELIABILITY TECHNICIAN CPT-J2930 Solu Medrol 125 mg (Methyl Prednisolone Sodium Succinate) 12:00:47 RELIABILITY TECHNICIAN CPT-61929 Venipuncture Draw Fee 11:33:31 CDT CPT-76427 EKG Trac and Interp 11:21:09 CDT CPT-53318 Chest 2V Frontal and Lat 11:21:09 CDT 12/15 CPT-66091 Venipuncture Draw Fee 08:02:34 CDT CPT-09644 Chest 2V Frontal and Lat 05:47:59 CDT 06/05
--- OUTSIDE RECORDS SUMMARY | 2019-10-08 08:34 | XMS REPORT | Clinical Summary ---
Author Author Caitlin, Juliana Martinez Organization [facility] Address Unknown Phone Unavailable Allergies, Adverse Reactions, [...] Pneumonia, organism unspecified SINUSITIS 473.9 Resolved Marcy D eLa Rosa MD PhD Unspecified sinusitis (chronic) CONTACT [...] Name NDC Status Provider Patient Instruction ZITHROMAX Z-REYNA 250 MG TABS 2 today, then 1 daily for 4 days 201 08/30/03 AZITHROMYCIN [id number] Active Columbabrady Kendallida Active CHERATUSSIN AC 100-10 MG/5ML SYRP 1 tsp by mouth every 4 hours as needed for cough GUAIFENESIN-CODEINE 84557595175 Active Elise gilmore WELDING MANAGER Active ZITHROMAX 250 MG TAB 2 po today, then 1 po q days 2-5 AZITHROMYCIN 02791209508 No Longer Active Carlton Hu MD Acti ve ZITHROMAX Z-REYNA 250 MG TABS 2 today, then 1 daily for 4 days 201 08/07/20 AZITHROMYCIN 89992620047 No Longer Active Columba Raida Act nael FLUTICASONE PROPIONATE 50 MCG/ACT SUSP 1 to 2 sprays each no stril daily FLUTICASONE PROPIONATE 55283350349 Active Jillina Frazel l WELDING MANAGER Active PROMETHAZINE-CODEINE 6.25-10 MG/5ML SYRP 1 tsp by mout h every 6 hours if needed for cough PROMETHAZINE-CODEINE 60966856777 Active Robert Hu MD Active AUGMENTIN 875-125 MG TAB 1 po BID x 10 days AMOXICILLIN- POT CLAVULANATE 40819138081 No Longer Active Diya Guerrerol WELDING MANAGER Active ZITHROMAX 250 MG TAB 2 po today, then 1 po q days 2-5 AZITHROMYCIN 15275975360 No Longer Active Carlton Hu MD Acti ve TRAMADOL HCL 50 MG TABS 1 po tid with ES Tylenol TRAMADOL HCL 70772559091 Active Carlton Hu MD Active PREMARIN 0.625 MG TABS TAKE 1 TAB BY MOUTH DAILY 07/25 ESTROGENS CONJUGATED 61059190065 No Longer Active Ridge Bess DO Active CYMBALTA 30 MG CPEP 1 cap by mouth daily DULOXE SNEHA HCL 32004298920 No Longer Active Ridge Bess DO Active AMOXICILLIN 500 MG CAP 1 tab by mouth 3 times daily x 10 days 20 14/04/28 AMOXICILLIN 19190777215 No Longer Active Carlton Hu MD Active AMOXICILLIN 500 MG CAP 1 tab by mouth 3 times daily x 10 days 20 13/03/08 AMOXICILLIN 69479888185 No Longer Active Carlton Hu MD Active CHERATUSSIN AC 100-10 MG/5ML SYRP 1 tsp by mouth every 4 hours as needed for cough GUAIFENESIN-CODEINE 33463585789 Active Carlton banks MD Active CYCLOBENZAPRINE HCL 10 MG TABS 1 tablet by mouth BID prn had pain 2 CYCLOBENZAPRINE HCL 64543843628 Active Carlton Hu MD A ctive PROMETHAZINE-CODEINE 6.25-10 MG/5ML SYRP 1 tsp by mouth ever y 8 hours prn cough PROMETHAZINE-CODEINE 74543035218 No Longer Active Robert jade Hu MD Active MEDROL (REYNA) 4 MG TABS 6 pills x 1 day, then 5 pill s x 1 day then 4 pills x 1 day, then 3 pills x 1 day, then 2 pills x 1 day, then 1 pill x 1 day, then stop METHYLPREDNISOLONE 89933410542 No Longer Active Parris Mora MD Active AZITHROMYCIN 250 MG TABS 2 po qd x 1 day, then 1 po qd x 4 days AZITHROMYCIN 28671233473 No Longer Active Perez Mora MD Active SYMBICORT 160-4.5 MCG/ACT AERO 2 puffs bid with rinse after 2011 BUDESONIDE-FORMOTEROL FUMARATE 90652775868 No Longer Active Perez Mora MD Active LYRICA 75 MG CAPS TAKE 1 CAPSULE BY MOUTH TWICE DAILY 2013 PREGABALIN 06153966145 No Longer Active Carlton Hu MD Active LYRICA 100 MG CAPS Take 1 tab po BID for fibromyalgia PREGABALIN 97372438913 Active Carlton Hu MD Active TOPAMAX 25 MG TABS 1 qHS x 1 week, then 1 BID x 1 week, then 1 qAM and 2 qHS x 1 week, then 2 BID (migraine prevention) TOPIRAMAT E 12527065071 No Longer Active Jerica FUENTES Active TOPAMAX 50 MG TABS take 1 tab po BID for migraines. 12/07/10 TOPIRAMATE 98970256284 No Longer Active Jerica Osei RMA Ac tive TOPAMAX 100 MG TABS Take 1 tablet po bid TOPIRAMATE 4999 9349280 Active Carlton Hu MD Active TRIAMCINOLONE ACETONIDE 0.1 % CREA apply three times daily prn r beatrice TRIAMCINOLONE ACETONIDE 33008331447 No Longer Active Carlton Hu MD Active PAXIL 40 MG TAB take 1 tab po qday for depression PAROXETINE HCL 12554054533 Active Elise Whitmore WELDING MANAGER Active CHERATUSSIN AC 100-10 MG/5ML SYRP 5ml po q6hr PRN Cough GUAIFENESIN-CODEINE 87972944915 No Longer Active Carlton Hu MD Active MEDROL (REYNA) 4 MG TABS 6 tabs on day 1, 5 tabs on d ay 2, 4 tabs on day 3, 3 tabs on day 4, 2 tabs on day 5, 1 tab on day 6 METHYLPREDNISOLONE 43662088736 No Longer Active Perez Mora MD Active AZITHROMYCIN 250 MG TABS 2 po qd x 1 day, then 1 po qd x 4 days AZITHROMYCIN 47116247809 No Longer Active Perez Mora MD Active PROPRANOLOL HCL 60 MG TABS 1 PO Q D PROPRANOL OL HCL 57107838950 No Longer Active Perez Mora MD Active CHERATUSSIN AC 100-10 MG/5ML SYRP take one tsp po Q 6hours prn c ough GUAIFENESIN-CODEINE 15512885625 No Longer Active Perez Means Active AUGMENTIN 875-125 MG TAB 1 tab by mouth twice daily with food 20 12/03/31 AMOXICILLIN-POT CLAVULANATE 56703066621 No Longer Active Chanel Mora MD Active CHERATUSSIN AC 100-10 MG/5ML SYRP 1 tsp by mouth every 4 hours as needed for cough GUAIFENESIN-CODEINE 50547538527 No Longer Activ e Hugo Restrepo MD Active ACETAMINOPHEN-CODEINE #3 300-30 MG TABS 1 PO Q 4-6 HRS PRN PAIN ACETAMINOPHEN-CODEINE 95192143963 No Longer Active Hugo Restrepo MD Active LEVAQUIN 500 MG TABS take one po QD LEVOFLOXACI N 52276509999 No Longer Active Griffin HERNANDEZ Active PREDNISONE 20 MG TAB Take 3 tabs daily for 3 days , 2 tabs daily for 3 days, 1 tab daily for 3 days, 1/2 tab daily for 3 days P REDNISONE 03040045332 No Longer Active Carlton Hu MD Active AVELOX 400 MG TABS 1 tab by mouth daily MOXIFLO XACIN HCL 19574487368 No Longer Active Carlton Hu MD Active CHERATUSSIN AC 100-10 MG/5ML SYRP 1 tsp by mouth every 4 hours as needed for cough GUAIFENESIN-CODEINE 23066989537 No Longer Activ e Hugo Restrepo MD Active AVELOX 400 MG TABS 1 tab by mouth daily MOXIFLO XACIN HCL 41669848129 No Longer Active Marcy De La Rosa MD PhD Active TERBINAFINE HCL 250 MG TABS 1 qDay TERBINAF INE HCL 83472798091 No Longer Active Maryc De La Rosa MD PhD Active CHERATUSSIN AC 100-10 MG/5ML SYRP 1 tsp by mouth every 4 hours as needed for cough GUAIFENESIN-CODEINE 39741868851 No Longer Activ e Marcy De La Rosa MD PhD Active AVELOX 400 MG TABS 1 tab by mouth daily MOXIFLO XACIN HCL 87707342656 No Longer Active Marcy De La Rosa MD PhD Active HYDROCODONE-ACETAMINOPHEN 5-325 MG TABS 1 po q 6hr PRN cough 201 05/09/16 HYDROCODONE-ACETAMINOPHEN 35411717220 No Longer Active Marcy De La Rosa MD PhD Active PREDNISONE 20 MG TAB 2 tabs daily for 3 days, 1 t ab daily for 3 days, 1/2 tab daily for 2 days PREDNISONE 56892218602 No Longer Active Carlton Hu MD Active CEFDINIR 300 MG CAPS by mouth twice a day CEFDI ODILIA 65260373242 No Longer Active Carlton Hu MD Active ZOCOR 40 MG TAB 1 tab by mouth daily SIMVASTATIN 12059737920 Active Carlton Hu MD Active HYDROCHLOROTHIAZIDE 25 MG TABS 1 TAB PO DAILY H YDROCHLOROTHIAZIDE 85865327455 Active Carlton Hu MD Active ACETAMINOPHEN-CODEINE #3 300-30 MG TABS 1 tablet po q 4-6hrs prn pain ACETAMINOPHEN-CODEINE 67737680559 No Longer Active Ridge Bess DO Active ZITHROMAX 250 MG TAB 2 po today, then 1 po q days 2-5 AZITHROMYCIN 43264488361 No Longer Active Carlton Hu MD Acti ve CHERATUSSIN AC 100-10 MG/5ML SYRP take 1 tsp po q4-6 hours prn c ough GUAIFENESIN-CODEINE 20650021795 No Longer Active Carlton Hu MD Active ACETAMINOPHEN-CODEINE #3 300-30 MG TABS 1 PO Q 4-6 HR PRN PAIN 2 ACETAMINOPHEN-CODEINE 04463055311 No Longer Active Carlton rich MD Active LORTAB 7.5-500 MG/15ML ELIX 7.5 ml po q 4 hour prn cough HYDROCODONE-ACETAMINOPHEN 62954132781 No Longer Active Carlton Hu MD Active PREDNISONE 20 MG TAB 1 po bid 3 days, then 1 po q day 3 days 201 05/03/07 PREDNISONE 86719036185 No Longer Active Carlton Hu MD Active ELMIRON 100 MG CAPS 2 tablets in the am and 1 tablet at hs PENTOSAN POLYSULFATE SODIUM 31700890287 Active Gracie Moreno Active CEFDINIR 300 MG CAPS by mouth twice a day CEFDI ODILIA 25394584520 No Longer Active Carlton Hu MD Active CEFDINIR 300 MG CAPS by mouth twice a day CEFDI ODILIA 90544908118 No Longer Active Carlton Hu MD Active CEFDINIR 300 MG CAPS by mouth twice a day CEFDI ODILIA 12528399276 No Longer Active Carlton Hu MD Active TESSALON PERLES 100 MG CAP 1 tablet by mouth 3 times daily a s needed for cough BENZONATATE 47347725610 No Longer Active Carlton bustamante MD Active CEFDINIR 300 MG CAPS by mouth twice a day CEFDI ODILIA 56073135424 No Longer Active Carlton Hu MD Active ZITHROMAX Z-REYNA 250 MG TABS 2 today, then 1 daily for 4 days 201 04/09/17 AZITHROMYCIN 25973104270 No Longer Active Hugo Restrepo MD Active TESSALON PERLES 100 MG CAP 1 tablet by mouth 3 times daily a s needed for cough TESSALON PERLES 100 MG CAP 496716 BENZONATATE I nactive PREDNISONE 20 MG TAB 1 po bid 3 days, then 1 po q day 3 days 201 05/03/07 PREDNISONE 20 MG TAB 592552 PREDNISONE Inactive LORTAB 7.5-500 MG/15ML ELIX 7.5 ml po q 4 hour prn cough LORTAB 7.5-500 MG/15ML ELIX HYDROCODONE-ACETAMINOPHEN Inacti ve ACETAMINOPHEN-CODEINE #3 300-30 MG TABS 1 PO Q 4-6 HR PRN PAIN 2 ACETAMINOPHEN-CODEINE #3 300-30 MG TABS 345578 ACETAMIN OPHEN-CODEINE Inactive CHERATUSSIN AC 100-10 MG/5ML SYRP take 1 tsp po q4-6 hours prn c ough CHERATUSSIN AC 100-10 MG/5ML SYRP 544199 GUAIFENESIN-CO DEINE Inactive ACETAMINOPHEN-CODEINE #3 300-30 MG TABS 1 tablet po q 4-6hrs prn pain ACETAMINOPHEN-CODEINE #3 300-30 MG TABS 987414 ACETAMIN OPHEN-CODEINE Inactive HYDROCODONE-ACETAMINOPHEN 5-325 MG TABS 1 po q 6hr PRN cough 201 05/09/16 HYDROCODONE-ACETAMINOPHEN 5-325 MG TABS 255323 HYDROCODONE-ACETAMINOPHEN Inactive AVELOX 400 MG TABS 1 tab by mouth daily A VELOX 400 MG TABS 588323 MOXIFLOXACIN HCL Inactive CHERATUSSIN AC 100-10 MG/5ML SYRP 1 tsp by mouth every 4 hours as needed for cough CHERATUSSIN AC 100-10 MG/5ML SYRP 088224 GUAIFENESIN-CODEINE Inactive TERBINAFINE HCL 250 MG TABS 1 qDay TERBINAFINE HCL 250 MG TABS 000138 TERBINAFINE HCL Inactive CHERATUSSIN AC 100-10 MG/5ML SYRP 1 tsp by mouth every 4 hours as needed for cough CHERATUSSIN AC 100-10 MG/5ML SYRP 865622 GUAIFENESIN-CODEINE Inactive ACETAMINOPHEN-CODEINE #3 300-30 MG TABS 1 PO Q 4-6 HRS PRN PAIN ACETAMINOPHEN-CODEINE #3 300-30 MG TABS 144603 ACETAMINOPHEN-CODEIN E Inactive CHERATUSSIN AC 100-10 MG/5ML SYRP 1 tsp by mouth every 4 hours as needed for cough CHERATUSSIN AC 100-10 MG/5ML SYRP 763847 GUAIFENESIN-CODEINE Inactive AUGMENTIN 875-125 MG TAB 1 tab by mouth twice daily with food 20 12/03/31 AUGMENTIN 875-125 MG TAB 821100 AMOXICILLIN-POT CLAVULA EFE Inactive CHERATUSSIN AC 100-10 MG/5ML SYRP take one tsp po Q 6hours prn c ough CHERATUSSIN AC 100-10 MG/5ML SYRP 402352 GUAIFENESIN-CO DEINE Inactive PROPRANOLOL HCL 60 MG TABS 1 PO Q D P ROPRANOLOL HCL 60 MG TABS 331172 PROPRANOLOL HCL Inactive TOPAMAX 50 MG TABS take 1 tab po BID for migraines. 12/07/10 TOPAMAX 50 MG TABS 781951 TOPIRAMATE Inactive TOPAMAX 25 MG TABS 1 qHS x 1 week, then 1 BID x 1 week, then 1 qAM and 2 qHS x 1 week, then 2 BID (migraine prevention) TOPAMAX 2 5 MG TABS 164921 TOPIRAMATE Inactive LYRICA 75 MG CAPS TAKE 1 CAPSULE BY MOUTH TWICE DAILY LYRICA 75 MG CAPS PREGABALIN Inactive SYMBICORT 160-4.5 MCG/ACT AERO 2 puffs bid with rinse after 2011 SYMBICORT 160-4.5 MCG/ACT AERO BUDESONIDE-FORMOT SÁNCHEZ FUMARATE Inactive PROMETHAZINE-CODEINE 6.25-10 MG/5ML SYRP 1 tsp by mouth ever y 8 hours prn cough PROMETHAZINE-CODEINE 6.25-10 MG/5ML SYRP 462934 PROMETHAZINE-CODEINE Inactive CYMBALTA 30 MG CPEP 1 cap by mouth daily CYMBALTA 30 MG CPEP 907644 DULOXETINE HCL Inactive PREMARIN 0.625 MG TABS TAKE 1 TAB BY MOUTH DAILY 07/25 PREMARIN 0.625 MG TABS ESTROGENS CONJUGATED Inactive ZITHROMAX Z-REYNA 250 MG TABS 2 today, then 1 daily for 4 days 201 04/09/17 ZITHROMAX Z-REYNA 250 MG TABS 6413347 AZITHROMYCIN Inac tive CEFDINIR 300 MG CAPS [...] q days 2-5 ZITHROMAX 250 MG TAB 5996808 AZITHROMYCIN Inactive CEFDINIR 300 MG CAPS by mouth twice a day CEFDINIR 300 MG CAPS 20020704 CEFDINIR Inactive PREDNISONE 20 MG TAB 2 tabs daily for 3 days, 1 t ab daily for 3 days, 1/2 tab daily for 2 days PREDNISONE 20 MG TAB 360426 PREDNISON E Inactive AVELOX 400 MG TABS 1 tab by mouth daily A VELOX 400 MG TABS 544887 MOXIFLOXACIN HCL Inactive AVELOX 400 MG TABS 1 tab by mouth daily A VELOX 400 MG TABS 219353 MOXIFLOXACIN HCL Inactive PREDNISONE 20 MG TAB Take 3 tabs daily for 3 days , 2 tabs daily for 3 days, 1 tab daily for 3 days, 1/2 tab daily for 3 days PREDNISONE 20 MG TAB 168993 PREDNISONE Inactive LEVAQUIN 500 MG TABS take one po QD LEVAQUIN 50 0 MG TABS 960256 LEVOFLOXACIN Inactive AZITHROMYCIN 250 MG TABS 2 po qd x 1 day, then 1 po qd x 4 days AZITHROMYCIN 250 MG TABS 6018600 AZITHROMYCIN Inactiv e MEDROL (REYNA) 4 MG TABS 6 tabs on day 1, 5 tabs on d ay 2, 4 tabs on day 3, 3 tabs on day 4, 2 tabs on day 5, 1 tab on day 6 MEDROL (REYNA) 4 MG TABS METHYLPREDNISOLONE Inactive CHERATUSSIN AC 100-10 MG/5ML SYRP 5ml po q6hr PRN Cough CHERATUSSIN AC 100-10 MG/5ML SYRP 720527 GUAIFENESIN-CODEINE Inacti ve TRIAMCINOLONE ACETONIDE 0.1 % CREA apply three times daily prn r beatrice TRIAMCINOLONE ACETONIDE 0.1 % CREA 9738538 TRIAMCINOLONE ACETONIDE Inactive AZITHROMYCIN 250 MG TABS 2 po qd x 1 day, then 1 po qd x 4 days AZITHROMYCIN 250 MG TABS 4857375 AZITHROMYCIN Inactiv e MEDROL (REYNA) 4 MG [...] days 20 13/03/08 AMOXICILLIN 500 MG CAP 142792 AMOXICILLIN Inactive AMOXICILLIN 500 MG CAP 1 tab by mouth 3 times daily x 10 days 20 14/04/28 AMOXICILLIN 500 MG CAP 256508 AMOXICILLIN Inactive ZITHROMAX 250 MG TAB 2 po today, then 1 po q days 2-5 ZITHROMAX 250 MG TAB 7330131 AZITHROMYCIN Inactive AUGMENTIN 875-125 MG TAB 1 po BID x 10 days AUGMENTIN 875- 125 MG TAB 904592 AMOXICILLIN-POT CLAVULANATE Inactive ZITHROMAX Z-REYNA 250 MG TABS 2 today, then 1 daily for 4 days 201 08/07/20 ZITHROMAX Z-REYNA 250 MG TABS 8450569 AZITHROMYCIN Inac tive ZITHROMAX 250 MG TAB 2 po today, then 1 po q days 2-5 ZITHROMAX 250 MG TAB 5681060 AZITHROMYCIN Inactive Vital Signs Date Name Value [...] Measured Encounters Code Encounter Date Provider Facility CPT-59275 Level 3 Est. Patient 09:45:49 [employer] CLERK Carlton rich MD [facility] CPT-60109 Level 3 Est. Patient 13:19:20 CDT Carlton rich MD [facility] CPT-31995 Level 3 Est. Patient 13:06:43 CDT Ridge tam DO [facility] CPT-47141 Level 3 Est. Patient 10:03:07 CDT Perez Mora MD [facility]-94412 Level 3 Est. Patient 19:50:35 [employer]ENTAL CLERK Carlton rich MD [facility]-97534 Level 4 Est. Patient 18:05:01 [employer] RENTAL CLERK Carlton rich MD [facility]-84372 Level 3 Est. Patient 10:45:55 [employer] RENTAL CLERK Hugo Restrepo MD [facility]-94469 Level 3 Est. Patient 14:12:49 CDT Griffin HERNANDEZ [facility]-31160 Level 3 Est. Patient 17:37:24 CDT Carlton rich MD [facility]-01624 Level 3 Est. Patient 16:51:54 CDT Carlton rich MD [facility]-31367 Level 3 Est. Patient 12:18:11 CDT Hugo Restrepo MD [facility]-89911 Level 3 Est. Patient 11:30:25 CDT Marcy crisostomo MD PhD [facility]-06502 Level 3 Est. Patient 12:00:47 [employer]ENT[employer] CLERK Carlton rich MD [facility]-68392 Level 3 Est. Patient 16:31:06 [employer] RENT[employer] CLERK Carlton rich MD [facility]-47227 Level 3 Est. Patient 16:23:24 [employer] RENTAL CLERK Ridge tam DO [facility] CPT-71697 Level 3 Est. Patient 12:34:12 CDT Carlton rich MD [facility]-63300 Level 2 Est. Patient 15:43:33 CDT Robi armstrong MD [facility]-27103 Level 4 Est. Patient 14:04:44 CDT Carlton rich MD [facility] CPT-67049 Level 3 Est. Patient 05:47:59 CDT Ridge tam DO [facility] CPT-40718 Level 3 Est. Patient 13:12:53 [employer] RENT[employer] CLERK Carlton rich MD [facility] CPT-53186 Level 3 Est. Patient 14:26:53 CDT Hugo Restrepo MD [facility] Procedures Code Procedure Name Date Entry Date Standard Desc ription CPT-83799 Hip bilat min 2V w AP pelvis 13:16:20 CDT 2 CPT-73959 Pelvis only 13:07:33 CDT CPT-49329 Spec Collection and Handling Fee 11:25:12 C DT CPT-51322 Fluzone Quadrivalent Intramuscular Suspe nsion 0.5 ML 14:31:55 CDT CPT-44300 Abx/Therapy Injection 13:28:47 [employer]ENTAL CLERK CPT-J2930 Solu Medrol 125 mg (Methyl Prednisolone Sodium Succinate) 12:00:47 [employer]ENTAL CLERK CPT-28605 Venipuncture Draw Fee 11:33:31 CDT CPT-85802 EKG Trac and Interp 11:21:09 CDT CPT-97668 Chest 2V Frontal and Lat 11:21:09 CDT 12/15 CPT-82468 Venipuncture Draw Fee 08:02:34 CDT CPT-57325 Chest 2V Frontal and Lat 05:47:59 CDT 06/05
--- OUTSIDE RECORDS SUMMARY | 2019-10-08 08:35 | XMS REPORT | Clinical Summary ---
Author Author Caitlin, Juliana Martinez Organization [employer] [facility] Address Unknown [...] po qd x 5 days P REDNISONE [id number] Active Perez Mora MD Active PROAIR HFA 108 (90 BASE) MCG/ACT INHALATION AEROSOL SO LUTION 2 puffs four times a day as needed ALBUTEROL SULFATE 40179692063 No Long er Active Becky FUENTES Active ASPIRIN 81 MG ORAL TABLET 1 po qd ASPIRIN 88309628214 Active Carlton Hu MD Active PREDNISONE 20 MG ORAL TABLET 1 tab twice daily for 3 d ay, then one daily for three days PREDNISONE 97255670881 No Longer Active Carlton Hu MD Active AUGMENTIN 875-125 MG ORAL TABLET 1 po BID x 10 days 16/03/22 AMOXICILLIN-POT CLAVULANATE 85866711294 No Longer Active Elise Garcia APRN Active TERBINAFINE HCL 250 MG ORAL TABLET 1 qDay for nail fungus 7 TERBINAFINE HCL 01196379026 No Longer Active Carlton Hu MD A ctive TUSSIONEX PENNKINETIC ER 10-8 MG/5ML ORAL SUSPENSION E XTENDED RELEASE 5ml po q12hr PRN Cough HYDROCOD POLST-CHLORPHEN POLST 72774365201 Active Perez Mora MD Active AMOXICILLIN 500 MG ORAL CAPSULE 1 cap by mouth three times a day AMOXICILLIN 25722959620 No Longer Active Carlton Hu MD Active ELMIRON 100 MG ORAL CAPSULE 2 tablets in the am and 1 tablet at hs PENTOSAN POLYSULFATE SODIUM 27029771133 No Longer Active Robert Hu MD Active MUCINEX D 60-600 MG ORAL TABLET EXTENDED RELEASE 12 HOUR 1 t ab po q am PSEUDOEPHEDRINE-GUAIFENESIN 84169584045 No Longer Act nael Carlton Hu MD Active MUCINEX DM MAXIMUM STRENGTH 60-1200 MG ORAL TABLET EXT ENDED RELEASE 12 HOUR 1 tab po q am DEXTROMETHORPHAN-GUAIFENESIN 22370145031 No Longer Active Carlton Hu MD Active TUSSIONEX PENNKINETIC ER 10-8 MG/5ML ORAL SUSPENSION E XTENDED RELEASE 5ml po q12hr PRN Cough HYDROCOD POLST-CHLORPHEN POLST 5 7317940738 No Longer Active Carlton Hu MD Active POTASSIUM CHLORIDE ER 20 MEQ ORAL TABLET EXTENDED RELE ASE Take 1 by mouth 4 times daily for 7 days POTASSIUM CHLORIDE 14707541989 No Longer Active Carlton Hu MD Active ZITHROMAX 250 MG ORAL TABLET 2 po today, then 1 po q days 2-5 20 14/09/04 AZITHROMYCIN 09455017065 No Longer Active Elise Garcia APRN Active TUSSIONEX PENNKINETIC ER 10-8 MG/5ML ORAL SUSPENSION E XTENDED RELEASE 5 ml twice a day as needed for cough HYDROCOD POLST-CHLORPH EN POLST 15988483387 No Longer Active Elise Garcia APRN Active MONTELUKAST SODIUM 10 MG ORAL TABLET 1 po daily for Allergy MONTELUKAST SODIUM 97916903124 Active Carlton Hu MD Ac tive TUSSIONEX PENNKINETIC ER 10-8 MG/5ML ORAL SUSPENSION E XTENDED RELEASE 5ml po q12hr PRN Cough HYDROCOD POLST-CHLORPHEN POLST 5 9984666729 No Longer Active Hugo Restrepo MD Active GABAPENTIN 100 MG ORAL CAPSULE 1 po BID for fibromyalgia GABAPENTIN 88846893980 Active Carlton Hu MD Active LYRICA 100 MG ORAL CAPSULE Take 1 tab po BID for fibromyalgia 20 11/08/21 PREGABALIN 90290892213 No Longer Active Elise Garcia APRN A ctive PREDNISONE 20 MG ORAL TABLET 2 tabs daily for 3 days, 1 tab daily for 3 days, 1/2 tab daily for 2 days PREDNISONE 63784146214 No Longer Active Jillina Gege KHAN Active TUSSIONEX PENNKINETIC ER 10-8 MG/5ML ORAL SUSPENSION E XTENDED RELEASE 5 mL PO q 12 hrs PRN cough HYDROCOD POLST-CHLORPHEN POLST 038907 85911 No Longer Active Jillina Frakerriel BILL Active FLUTICASONE PROPIONATE 50 MCG/ACT NASAL SUSPENSION 2 s prays each nostril daily until bottle is empty FLUTICASONE PROPIONATE 758039294 99 No Longer Active Diya De Guzman APRN Active ASMANEX 60 METERED DOSES 220 MCG/INH INHALATION AEROSO L POWDER BREATH ACTIVATED 1 puff bid with rinse after MOMETASONE FUROATE 2313309 4102 No Longer Active Diya De Guzman APRN Active ZITHROMAX Z-REYNA 250 MG ORAL TABLET 2 today, then 1 daily for 4 d ays AZITHROMYCIN 42688910863 No Longer Active Elise Garcia APRN Active TUSSIONEX PENNKINETIC ER 10-8 MG/5ML ORAL SUSPENSION E XTENDED RELEASE 5ml po q12hr PRN Cough HYDROCOD POLST-CHLORPHEN POLST 5 6768079537 No Longer Active Elise Garcia APRN Active PREDNISONE 20 MG ORAL TABLET 2 tabs daily for 3 days, 1 tab daily for 3 days, 1/2 tab daily for 2 days PREDNISONE 75770255729 No Longer Active Diya De Guzman APRN Active AMOXICILLIN 500 MG ORAL CAPSULE 2 po BID x 10 days 201 09/29/08 AMOXICILLIN 98272647835 No Longer Active Diya De Guzman APRN Act nael SINGULAIR 10 MG ORAL TABLET 1 po qday for allergies 20 14/01/12 MONTELUKAST SODIUM 00990147688 No Longer Active Carlton Hu MD Active LEVAQUIN 500 MG ORAL TABLET 1 tablet by mouth daily 20 13/09/24 LEVOFLOXACIN 20270440263 No Longer Active Carlton Hu MD Acti ve FLUTICASONE PROPIONATE 50 MCG/ACT NASAL SUSPENSION 2 s prays each nostril daily for 2 weeks, then 1 spray each nostril daily. FLUTICASONE PROPIONATE 70098879426 Active Elise Garcia APRN Active ZITHROMAX 250 MG ORAL TABLET 2 po today, then 1 po q days 2-5 20 13/08/10 AZITHROMYCIN 86280266508 No Longer Active Elise Garcia APRN Active XANAX 0.5 MG ORAL TABLET one tablet by mouth daily prn anxiety 2015 ALPRAZOLAM 34774966271 Active Carlton Hu MD Active CYMBALTA 30 MG ORAL CAPSULE DELAYED RELEASE PARTICLES 1 cap by mouth daily for depression DULOXETINE HCL 80625837394 Active Carlton belrtán MD Active CEFDINIR 300 MG ORAL CAPSULE 1 po BID x 10 days CEFDINIR 71738025041 No Longer Active Carlton Hu MD Active ZOCOR 40 MG ORAL TABLET 1 tab by mouth daily SI MVASTATIN 24659566819 No Longer Active Carlton Hu MD Active CYCLOBENZAPRINE HCL 10 MG ORAL TABLET 1 tablet by mouth BID prn had pain CYCLOBENZAPRINE HCL 99593358446 No Longer Active Jayden Hu MD Active LEVOFLOXACIN 500 MG ORAL TABLET 1 tab PO daily x 10 days LEVOFLOXACIN 84569494144 No Longer Active Carlton Hu MD Acti ve PREDNISONE 20 MG ORAL TABLET 3 tab PO qd x 2d, 2 tab P O qd x 2d, 1 tab PO qd x 2d, 1/2 tab PO qd x 2d PREDNISONE 22567542558 No Lo nger Active Carlton Hu MD Active FLUTICASONE PROPIONATE 50 MCG/ACT NASAL SUSPENSION 1 t o 2 sprays each nostril daily FLUTICASONE PROPIONATE 15066322281 No Longer Ac tive Blaine HERNANDEZ Active CHERATUSSIN AC 100-10 MG/5ML ORAL SYRUP 1 tsp by mouth every 4 hours as needed for cough GUAIFENESIN-CODEINE 14821240778 No Longe r Active Blaine HERNANDEZ Active PROMETHAZINE-CODEINE 6.25-10 MG/5ML ORAL SYRUP 1 tsp b y mouth every 6 hours if needed for cough PROMETHAZINE-CODEINE 38764529205 No Longer Active Blaine HERNANDEZ Active CHERATUSSIN AC 100-10 MG/5ML ORAL SYRUP 1 tsp by mouth every 4 hours as needed for cough GUAIFENESIN-CODEINE 20661408651 No Longe r Active Blaine HERNANDEZ Active ZITHROMAX Z-REYNA 250 MG ORAL TABLET 2 today, then 1 daily for 4 d ays AZITHROMYCIN 35924782132 No Longer Active Columba Raida Act nael ZITHROMAX 250 MG ORAL TABLET 2 po today, then 1 po q days 2-5 20 14/03/21 AZITHROMYCIN 96994642527 No Longer Active Carlton Hu MD Active ZITHROMAX Z-REYNA 250 MG ORAL TABLET 2 today, then 1 daily for 4 d ays AZITHROMYCIN 46488179899 No Longer Active Columba Raida Act nael AUGMENTIN 875-125 MG ORAL TABLET 1 po BID x 10 days 13/01/20 AMOXICILLIN-POT CLAVULANATE 81287900562 No Longer Active Diya De Guzman APRN Active ZITHROMAX 250 MG ORAL TABLET 2 po today, then 1 po q days 2-5 20 12/08/14 AZITHROMYCIN 40260602790 No Longer Active Carlton Hu MD Active TRAMADOL HCL 50 MG ORAL TABLET 1 po tid with ES Tylenol TRAMADOL HCL 42773493643 Active Carlton Hu MD Active PREMARIN 0.625 MG ORAL TABLET TAKE 1 TAB BY MOUTH DAILY ESTROGENS CONJUGATED 25892927823 No Longer Active Ridge Bess DO A ctive CYMBALTA 30 MG ORAL CAPSULE DELAYED RELEASE PARTICLES 1 cap by mouth daily DULOXETINE HCL 47255222506 No Longer Active Ridge tam DO Active AMOXICILLIN 500 MG ORAL CAPSULE 1 tab by mouth 3 times daily x 10 days AMOXICILLIN 79831387538 No Longer Active Carlton bustamante MD Active AMOXICILLIN 500 MG ORAL CAPSULE 1 tab by mouth 3 times daily x 10 days AMOXICILLIN 70650048982 No Longer Active Carlton bustamante MD Active PROMETHAZINE-CODEINE 6.25-10 MG/5ML ORAL SYRUP 1 tsp b y mouth every 8 hours prn cough PROMETHAZINE-CODEINE 55915768375 No Longer Acti ve Carlton Hu MD Active MEDROL 4 MG ORAL TABLET THERAPY PACK 6 pills x 1 day, then 5 pills x 1 day then 4 pills x 1 day, then 3 pills x 1 day, then 2 pills x 1 day, then 1 pill x 1 day, then stop METHYLPREDNISOLONE 81856790532 No Long er Active Perez Mora MD Active AZITHROMYCIN 250 MG ORAL TABLET 2 po qd x 1 day, then 1 po q d x 4 days AZITHROMYCIN 12013229303 No Longer Active Perez Ambriz MD Active SYMBICORT 160-4.5 MCG/ACT INHALATION AEROSOL 2 puffs bid wit h rinse after BUDESONIDE-FORMOTEROL FUMARATE 08016467466 N o Longer Active Perez Mora MD Active LYRICA 75 MG ORAL CAPSULE TAKE 1 CAPSULE BY MOUTH TWICE DAILY PREGABALIN 01394084062 No Longer Active Carlton Hu MD Acti ve TOPAMAX 25 MG ORAL TABLET 1 qHS x 1 week, then 1 BID x 1 week, then 1 qAM and 2 qHS x 1 week, then 2 BID (migraine prevention) T OPIRAMATE 74868317310 No Longer Active Jerica FUENTES Active TOPAMAX 50 MG ORAL TABLET take 1 tab po BID for migraines. 07/02 TOPIRAMATE 25632411380 No Longer Active Jerica FUENTES Active TOPAMAX 100 MG ORAL TABLET Take 1 tablet po bid TO PIRAMATE 42850549529 Active Carlton Hu MD Active TRIAMCINOLONE ACETONIDE 0.1 % EXTERNAL CREAM apply three roger es daily prn rash TRIAMCINOLONE ACETONIDE 81290177530 No Longer Active Carlton Hu MD Active PAXIL 40 MG ORAL TABLET take 1 tab po qday for depression 0 PAROXETINE HCL 94452933253 Active Carlton Hu MD Active CHERATUSSIN AC 100-10 MG/5ML ORAL SYRUP 5ml po q6hr PRN Cough 20 13/04/14 GUAIFENESIN-CODEINE 59862455386 No Longer Active Carlton Hu MD Active MEDROL 4 MG ORAL TABLET THERAPY PACK 6 tabs on day 1, 5 tabs on day 2, 4 tabs on day 3, 3 tabs on day 4, 2 tabs on day 5, 1 tab on day 6 2013 METHYLPREDNISOLONE 16419955281 No Longer Active Perez Mora MD Active AZITHROMYCIN 250 MG ORAL TABLET 2 po qd x 1 day, then 1 po q d x 4 days AZITHROMYCIN 04109860347 No Longer Active Perez Ambriz MD Active PROPRANOLOL HCL 60 MG ORAL TABLET 1 PO Q D PROPRANOLOL HCL 27619424160 No Longer Active Perez Mora MD Activ e CHERATUSSIN AC 100-10 MG/5ML ORAL SYRUP take one tsp po Q 6h ours prn cough GUAIFENESIN-CODEINE 21787469449 No Longer Active Zia Mora MD Active AUGMENTIN 875-125 MG ORAL TABLET 1 tab by mouth twice daily with food AMOXICILLIN-POT CLAVULANATE 98725019767 No Longer Act nael Perez Mora MD Active CHERATUSSIN AC 100-10 MG/5ML ORAL SYRUP 1 tsp by mouth every 4 hours as needed for cough GUAIFENESIN-CODEINE 54174545178 No Longe r Active Hugo Restrepo MD Active ACETAMINOPHEN-CODEINE #3 300-30 MG ORAL TABLET 1 PO Q 4-6 HRS ND N PAIN ACETAMINOPHEN-CODEINE 40766202659 No Longer Active Hugo Restrepo MD Active LEVAQUIN 500 MG ORAL TABLET take one po QD LEVO FLOXACIN 20631952443 No Longer Active Griffin HERNANDEZ Active PREDNISONE 20 MG ORAL TABLET Take 3 tabs daily for 3 d ays, 2 tabs daily for 3 days, 1 tab daily for 3 days, 1/2 tab daily for 3 days 11/07 PREDNISONE 75251123634 No Longer Active Carlton Hu MD Acti ve AVELOX 400 MG ORAL TABLET 1 tab by mouth daily MOXIFLOXACIN HCL 18216943200 No Longer Active Carlton Hu MD Active CHERATUSSIN AC 100-10 MG/5ML ORAL SYRUP 1 tsp by mouth every 4 hours as needed for cough GUAIFENESIN-CODEINE 15123582443 No Longe r Active Hugo Restrepo MD Active AVELOX 400 MG ORAL TABLET 1 tab by mouth daily MOXIFLOXACIN HCL 17557030424 No Longer Active Marcy De La Rosa MD PhD Active TERBINAFINE HCL 250 MG ORAL TABLET 1 qDay T ERBINAFINE HCL 28029591515 No Longer Active Marcy De La Rosa MD PhD Active CHERATUSSIN AC 100-10 MG/5ML ORAL SYRUP 1 tsp by mouth every 4 hours as needed for cough GUAIFENESIN-CODEINE 53465439695 No Longe r Active Marcy De La Rosa MD PhD Active AVELOX 400 MG ORAL TABLET 1 tab by mouth daily MOXIFLOXACIN HCL 52248053916 No Longer Active Marcy De La Rosa MD PhD Active HYDROCODONE-ACETAMINOPHEN 5-325 MG ORAL TABLET 1 po q 6hr PRN co ugh HYDROCODONE-ACETAMINOPHEN 62434171206 No Longer Active Marcy De La Rosa MD PhD Active PREDNISONE 20 MG ORAL TABLET 2 tabs daily for 3 days, 1 tab daily for 3 days, 1/2 tab daily for 2 days PREDNISONE 96967361451 No Longer Active Carltno Hu MD Active CEFDINIR 300 MG ORAL CAPSULE by mouth twice a day 2011 CEFDINIR 42242970980 No Longer Active Carlton Hu MD Acti ve HYDROCHLOROTHIAZIDE 25 MG ORAL TABLET 1 TAB PO DAILY HYDROCHLOROTHIAZIDE 02976104973 Active ALFREDO Holly Ac tive ACETAMINOPHEN-CODEINE #3 300-30 MG ORAL TABLET 1 tablet po q 4-6 hrs prn pain ACETAMINOPHEN-CODEINE 84703917255 No Longer Active Ridge Bess DO Active ZITHROMAX 250 MG ORAL TABLET 2 po today, then 1 po q days 2-5 20 03/07/07 AZITHROMYCIN 48898035398 No Longer Active Carlton Hu MD Active CHERATUSSIN AC 100-10 MG/5ML ORAL SYRUP take 1 tsp po q4-6 h ours prn cough GUAIFENESIN-CODEINE 37082559459 No Longer Active Jayden Hu MD Active ACETAMINOPHEN-CODEINE #3 300-30 MG ORAL TABLET 1 PO Q 4-6 HR PRN PAIN ACETAMINOPHEN-CODEINE 55316335229 No Longer Active Arnol Hu MD Active LORTAB 7.5-500 MG/15ML ORAL ELIXIR 7.5 ml po q 4 hour prn cough HYDROCODONE-ACETAMINOPHEN 12232550650 No Longer Active Carlton Hu MD Active PREDNISONE 20 MG ORAL TABLET 1 po bid 3 days, then 1 po q day 3 days PREDNISONE 86398460891 No Longer Active Carlton Hu MD Active CEFDINIR 300 MG ORAL CAPSULE by mouth twice a day 2011 CEFDINIR 98485257688 No Longer Active Carlton Hu MD Acti ve CEFDINIR 300 MG ORAL CAPSULE by mouth twice a day 2010 CEFDINIR 82009962041 No Longer Active Carlton Hu MD Acti ve CEFDINIR 300 MG ORAL CAPSULE by mouth twice a day 2010 CEFDINIR 96430020272 No Longer Active Carlton Hu MD Acti ve TESSALON PERLES 100 MG ORAL CAPSULE 1 tablet by mouth 3 times daily as needed for cough BENZONATATE 71497172276 No Longer Active Carlton Hu MD Active CEFDINIR 300 MG ORAL CAPSULE by mouth twice a day 2010 CEFDINIR 18471968610 No Longer Active Carlton Hu MD Acti ve ZITHROMAX Z-REYNA 250 MG ORAL TABLET 2 today, then 1 daily for 4 d ays AZITHROMYCIN 63640801258 No Longer Active Hugo Restrepo MD Active TESSALON PERLES 100 MG ORAL CAPSULE 1 tablet by mouth 3 times daily as needed for cough TESSALON PERLES 100 MG ORAL CAPSULE 51677 7 BENZONATATE Inactive PREDNISONE 20 MG ORAL TABLET 1 po bid 3 days, then 1 po q day 3 days PREDNISONE 20 MG ORAL TABLET 370965 PREDNISONE Greer ctive LORTAB 7.5-500 MG/15ML ORAL [...] cough CHERATUSSIN AC 100-10 MG/5ML ORAL SYRUP 760060 GUAIFENESIN-CODEINE Inactive ACETAMINOPHEN-CODEINE #3 300-30 MG ORAL TABLET 1 tablet po q 4-6 hrs prn pain ACETAMINOPHEN-CODEINE #3 300-30 MG ORAL TABLET ACETAMINOPHEN-CODEINE Inactive HYDROCODONE-ACETAMINOPHEN 5-325 MG ORAL TABLET 1 po q 6hr PRN co ugh HYDROCODONE-ACETAMINOPHEN 5-325 MG ORAL TABLET 765709 HYDROCODONE-ACETAMINOPHEN Inactive AVELOX 400 MG ORAL TABLET 1 tab by mouth daily AVELOX 400 MG ORAL TABLET 707107 MOXIFLOXACIN HCL Inactive CHERATUSSIN AC 100-10 MG/5ML ORAL SYRUP 1 tsp by mouth every 4 hours as needed for cough CHERATUSSIN AC 100-10 MG/5ML ORAL SYRUP 9 44241 GUAIFENESIN-CODEINE Inactive TERBINAFINE HCL 250 MG ORAL TABLET 1 qDay 07/08 TERBINAFINE HCL 250 MG ORAL TABLET 023686 TERBINAFINE HCL Inactive CHERATUSSIN AC 100-10 MG/5ML ORAL SYRUP 1 tsp by mouth every 4 hours as needed for cough CHERATUSSIN AC 100-10 MG/5ML ORAL SYRUP 9 48195 GUAIFENESIN-CODEINE Inactive ACETAMINOPHEN-CODEINE #3 300-30 MG ORAL TABLET 1 PO Q 4-6 HRS ND N PAIN ACETAMINOPHEN-CODEINE #3 300-30 MG ORAL TABLET ACETAMINOPHEN-CODEINE Inactive CHERATUSSIN AC 100-10 MG/5ML ORAL SYRUP 1 tsp by mouth every 4 hours as needed for cough CHERATUSSIN AC 100-10 MG/5ML ORAL SYRUP 9 43302 GUAIFENESIN-CODEINE Inactive AUGMENTIN 875-125 MG ORAL TABLET 1 tab by mouth twice daily with food AUGMENTIN 875-125 MG ORAL TABLET 867809 AMOXICIL MADELINE-POT CLAVULANATE Inactive CHERATUSSIN AC 100-10 MG/5ML ORAL SYRUP take one tsp po Q 6h ours prn cough CHERATUSSIN AC 100-10 MG/5ML ORAL SYRUP 375315 GUAIFENESIN-CODEINE Inactive PROPRANOLOL HCL 60 MG ORAL TABLET 1 PO Q D PROPRANOLOL HCL 60 MG ORAL TABLET 586776 PROPRANOLOL HCL Inactive TOPAMAX 50 MG ORAL TABLET take 1 tab po BID for migraines. 07/02 TOPAMAX 50 MG ORAL TABLET 843516 TOPIRAMATE Inacti ve TOPAMAX 25 MG ORAL TABLET 1 qHS x 1 week, then 1 BID x 1 week, then 1 qAM and 2 qHS x 1 week, then 2 BID (migraine prevention) TOPAMAX 25 MG ORAL TABLET 202901 TOPIRAMATE Inactive LYRICA 75 MG ORAL CAPSULE TAKE 1 CAPSULE BY MOUTH TWICE DAILY LYRICA 75 MG ORAL CAPSULE PREGABALIN Inactive SYMBICORT 160-4.5 MCG/ACT INHALATION AEROSOL 2 puffs bid wit h rinse after SYMBICORT 160-4.5 MCG/ACT INHALATION AEROSOL BUDESONIDE- FORMOTEROL FUMARATE Inactive PROMETHAZINE-CODEINE 6.25-10 MG/5ML ORAL SYRUP 1 tsp b y mouth every 8 hours prn cough PROMETHAZINE-CODEINE 6.25-10 MG/ 5ML ORAL SYRUP 553577 PROMETHAZINE-CODEINE Inactive CYMBALTA 30 MG ORAL CAPSULE DELAYED RELEASE PARTICLES 1 cap by mouth daily CYMBALTA 30 MG ORAL CAPSULE DELAYED RELE ASE PARTICLES 430502 DULOXETINE HCL Inactive PREMARIN 0.625 MG ORAL TABLET TAKE 1 TAB BY MOUTH DAILY PREMARIN 0.625 MG ORAL TABLET ESTROGENS CONJUGATED Inactive CHERATUSSIN AC 100-10 MG/5ML ORAL SYRUP 1 tsp by mouth every 4 hours as needed for cough CHERATUSSIN AC 100-10 MG/5ML ORAL SYRUP 9 95814 GUAIFENESIN-CODEINE Inactive PROMETHAZINE-CODEINE 6.25-10 MG/5ML ORAL SYRUP 1 tsp b y mouth every 6 hours if needed for cough PROMETHAZINE-CODEINE 6.25-10 MG/5ML ORAL SYRUP 197018 PROMETHAZINE-CODEINE Inactive CHERATUSSIN AC 100-10 MG/5ML ORAL SYRUP 1 tsp by mouth every 4 hours as needed for cough CHERATUSSIN AC 100-10 MG/5ML ORAL SYRUP 9 29457 GUAIFENESIN-CODEINE Inactive FLUTICASONE PROPIONATE 50 MCG/ACT NASAL SUSPENSION 1 t o 2 sprays each nostril daily FLUTICASONE PROPIONATE 50 MCG/AC T NASAL SUSPENSION 6801912 FLUTICASONE PROPIONATE Inactive PREDNISONE 20 MG ORAL TABLET 3 tab PO qd x 2d, 2 tab P O qd x 2d, 1 tab PO qd x 2d, 1/2 tab PO qd x 2d PREDNISONE 20 MG ORAL TAB LET 971376 PREDNISONE Inactive LEVOFLOXACIN 500 MG ORAL TABLET 1 tab PO daily x 10 days LEVOFLOXACIN 500 MG ORAL TABLET 355780 LEVOFLOXACIN Inactive CYCLOBENZAPRINE HCL 10 MG ORAL TABLET 1 tablet by mouth BID prn had pain CYCLOBENZAPRINE HCL 10 MG ORAL TABLET 359615 CYCLOBENZAPRINE HCL Inactive ZOCOR 40 MG ORAL TABLET 1 tab by mouth daily 4 ZOCOR 40 MG ORAL TABLET 313286 SIMVASTATIN Inactive TUSSIONEX PENNKINETIC ER 10-8 MG/5ML [...] FLUTICASONE PROPIO EFE 50 MCG/ACT NASAL SUSPENSION 8082515 FLUTICASONE PROPIONATE Inactive TUSSIONEX PENNKINETIC ER 10-8 [...] three days PREDNISONE 20 MG ORAL TABLET 571019 PREDNIS ONE Inactive PROAIR HFA 108 (90 BASE) MCG/ACT INHALATION AEROSOL SO LUTION 2 puffs four times a day as needed PROAIR HFA 108 (90 B ASE) MCG/ACT INHALATION AEROSOL SOLUTION ALBUTEROL SULFATE Inactive ZITHROMAX Z-REYNA 250 MG ORAL TABLET 2 today, then 1 daily for 4 d ays ZITHROMAX Z-REYNA 250 MG ORAL TABLET 819976 AZITHROMYCIN Inactive CEFDINIR 300 MG ORAL CAPSULE by mouth twice a day 2010 CEFDINIR 300 MG ORAL CAPSULE 894341 CEFDINIR Inactive CEFDINIR 300 MG ORAL CAPSULE [...] 2-5 03/07/07 ZITHROMAX 250 MG ORAL TABLET 618152 AZITHROMYCIN [place] ctive CEFDINIR 300 MG ORAL CAPSULE by mouth twice a day 2011 CEFDINIR 300 MG ORAL CAPSULE 20020704 CEFDINIR Inactive PREDNISONE 20 MG ORAL TABLET 2 tabs daily for 3 days, 1 tab daily for 3 days, 1/2 tab daily for 2 days PREDNISONE 20 MG ORAL T ABLET 216645 PREDNISONE Inactive AVELOX 400 MG ORAL TABLET 1 tab by mouth daily AVELOX 400 MG ORAL TABLET 399327 MOXIFLOXACIN HCL Inactive AVELOX 400 MG ORAL TABLET 1 tab by mouth daily AVELOX 400 MG ORAL TABLET 632640 MOXIFLOXACIN HCL Inactive PREDNISONE 20 MG ORAL TABLET Take 3 tabs daily for 3 d ays, 2 tabs daily for 3 days, 1 tab daily for 3 days, 1/2 tab daily for 3 days 11/07 PREDNISONE 20 MG ORAL TABLET 727910 PREDNISONE Inactive LEVAQUIN 500 MG ORAL TABLET take one po QD LEVAQUIN 500 MG ORAL TABLET 702758 LEVOFLOXACIN Inactive AZITHROMYCIN 250 MG ORAL TABLET 2 po qd x 1 day, then 1 po q d x 4 days AZITHROMYCIN 250 MG ORAL TABLET 005604 AZITHROMY GIOVANNI Inactive MEDROL 4 MG ORAL TABLET THERAPY PACK 6 tabs on day 1, 5 tabs on day 2, 4 tabs on day 3, 3 tabs on day 4, 2 tabs on day 5, 1 tab on day 6 2013 MEDROL 4 MG ORAL TABLET THERAPY PACK 033331 METHYLPREDNISOLONE Greer ctive CHERATUSSIN AC 100-10 MG/5ML ORAL SYRUP 5ml po q6hr PRN Cough 20 13/04/14 CHERATUSSIN AC 100-10 MG/5ML ORAL SYRUP 766645 GUAIFENE SIN-CODEINE Inactive TRIAMCINOLONE ACETONIDE 0.1 % EXTERNAL CREAM apply three roger es daily prn rash TRIAMCINOLONE ACETONIDE 0.1 % EXTERNAL CREAM 101 4314 TRIAMCINOLONE ACETONIDE Inactive AZITHROMYCIN 250 MG ORAL TABLET 2 po qd x 1 day, then 1 po q d x 4 days AZITHROMYCIN 250 MG ORAL TABLET 132072 AZITHROMY GIOVANNI Inactive MEDROL 4 MG ORAL TABLET THERAPY PACK 6 pills x 1 day, then 5 pills x 1 day then 4 pills x 1 day, then 3 pills x 1 day, then 2 pills x 1 day, then 1 pill x 1 day, then stop MEDROL 4 MG ORAL TABLET THERAPY PACK 514204 METHYLPREDNISOLONE Inactive AMOXICILLIN 500 MG ORAL CAPSULE 1 tab by mouth 3 times daily x 10 days AMOXICILLIN 500 MG ORAL CAPSULE 965443 AMOXICILL IN Inactive AMOXICILLIN 500 MG ORAL CAPSULE 1 tab by mouth 3 times daily x 10 days AMOXICILLIN 500 MG ORAL CAPSULE 899986 AMOXICILL IN Inactive ZITHROMAX 250 MG ORAL TABLET 2 po today, then 1 po q days 2-5 20 12/08/14 ZITHROMAX 250 MG ORAL TABLET 837213 AZITHROMYCIN Greer ctive AUGMENTIN 875-125 MG ORAL TABLET 1 po BID x 10 days 20 13/01/20 AUGMENTIN 875-125 MG ORAL TABLET 172312 AMOXICILLIN-POT CLAVULANATE Inactive ZITHROMAX Z-REYNA 250 MG ORAL TABLET 2 today, then 1 daily for 4 d ays ZITHROMAX Z-REYNA 250 MG ORAL TABLET 479824 AZITHROMYCIN Inactive ZITHROMAX 250 MG ORAL TABLET 2 po today, then 1 po q days 2-5 20 14/03/21 ZITHROMAX 250 MG ORAL TABLET 364454 AZITHROMYCIN Greer ctive ZITHROMAX Z-REYNA 250 MG ORAL TABLET 2 today, then 1 daily for 4 d ays ZITHROMAX Z-REYNA 250 MG ORAL TABLET 639106 AZITHROMYCIN Inactive CEFDINIR 300 MG ORAL CAPSULE 1 po BID x 10 days 06/21 CEFDINIR 300 MG ORAL CAPSULE 20020704 CEFDINIR Inactive ZITHROMAX 250 MG ORAL TABLET 2 po today, then 1 po q days 2-5 20 13/08/10 ZITHROMAX 250 MG ORAL TABLET 839245 AZITHROMYCIN Greer ctive LEVAQUIN 500 MG ORAL TABLET 1 tablet by mouth daily 13/09/24 LEVAQUIN 500 MG ORAL TABLET 19971102 LEVOFLOXACIN Inactive SINGULAIR 10 MG ORAL TABLET 1 po qday for allergies 20 14/01/12 SINGULAIR 10 MG ORAL TABLET 20010504 MONTELUKAST SODIUM Inactive AMOXICILLIN 500 MG ORAL CAPSULE 2 po BID x 10 days 201 09/29/08 AMOXICILLIN 500 MG ORAL CAPSULE 183075 AMOXICILLIN Inactive PREDNISONE 20 MG ORAL TABLET 2 tabs daily for 3 days, 1 tab daily for 3 days, 1/2 tab daily for 2 days PREDNISONE 20 MG ORAL T ABLET 890920 PREDNISONE Inactive ZITHROMAX Z-REYNA 250 MG ORAL TABLET 2 today, then 1 daily for 4 d ays ZITHROMAX Z-REYNA 250 MG ORAL TABLET 838474 AZITHROMYCIN Inactive PREDNISONE 20 MG ORAL TABLET 2 tabs daily for 3 days, 1 tab daily for 3 days, 1/2 tab daily for 2 days PREDNISONE 20 MG ORAL T ABLET 674063 PREDNISONE Inactive ZITHROMAX 250 MG ORAL TABLET 2 po today, then 1 po q days 2-5 20 14/09/04 ZITHROMAX 250 MG ORAL TABLET 017917 AZITHROMYCIN Greer ctive AMOXICILLIN 500 MG ORAL CAPSULE 1 cap by mouth three times a day AMOXICILLIN 500 MG ORAL CAPSULE 763004 AMOXICILLIN Inactive TERBINAFINE HCL 250 MG ORAL TABLET 1 qDay for nail fungus 7 TERBINAFINE HCL 250 MG ORAL TABLET 138587 TERBINAFINE HCL Inact nael AUGMENTIN 875-125 MG ORAL TABLET 1 po BID x 10 days 16/03/22 AUGMENTIN 875-125 MG ORAL TABLET 304108 AMOXICILLIN-POT CLAVULANATE Inactive Vital Signs Date Name [...] weight E&M 150 [lb_av] Weight Measure d Diagnostic Results Date Name Value Unit Range Description Lab Report: Basic Metabolic Panel - Chem istry sodium, serum 132 mmol/L 963-393 9040/07/12 potassium, serum 2.7 mmol/L 3.5-5.2 chloride, serum 93 mmol/L 98-107 carbon dioxide, venous blood 30.8 mmol/L 21.0-32 .0 blood glucose 107 mg/dL 65-110 calcium, serum 9.3 mg/dL 8.5-10.1 urea nitrogen, blood 12 mg/dL 7-18 creatinine, serum 1.00 mg/dL 0.60-1.30 sodium, serum 142 mmol/L 940-424 8622/07/17 potassium, serum 4.2 mmol/L 3.5-5.2 chloride, serum 106 mmol/L 98-107 carbon dioxide, venous blood 29.9 mmol/L 21.0-32 .0 blood glucose 108 mg/dL 65-110 calcium, serum 9.1 mg/dL 8.5-10.1 urea nitrogen, blood 11 mg/dL 7-18 creatinine, serum 0.81 mg/dL 0.60-1.30 Lab Report: Rapid Strep - Lab Microbial identification kit, rapid strep method Negative Negative Encounters Code Encounter Date Provider Facility CPT-96711 Level 3 Est. 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 Patient 09:51:32 STRAW HAT BRIM RAISER OPERATOR Carlton rich MD [facility] CPT-82407 Level 3 Est. Patient 10:26:00 STRAW HAT BRIM RAISER OPERATOR Elise stephenson [facility] CPT-04794 Level 3 Est. Patient 13:35:41 STRAW HAT BRIM RAISER OPERATOR Carlton rich MD [facility] CPT-22296 Level 3 Est. Patient 10:03:52 STRAW HAT BRIM RAISER OPERATOR Carlton rich MD [facility] CPT-46928 Level 3 Est. Patient 12:17:50 CDT Hugo Restrepo MD [facility] CPT-36005 Level 3 Est. Patient 13:42:38 CDT Elise stephenson [facility]-75428 Level 3 Est. Patient 13:23:51 CDT Diya cobian [facility] CPT-71528 Level 3 Est. Patient 14:22:19 STRAW HAT BRIM RAISER OPERATOR Diya cobian [facility] CPT-12946 Level 3 Est. Patient 10:11:46 CDT Carlton rich MD [facility] CPT-25134 Level 3 Est. Patient 17:29:43 CDT Elise Are [facility] CPT-85541 Level 3 Est. Patient 11:58:06 CDT Elise Are ll [facility] CPT-29951 Level 4 Est. Patient 14:36:51 CDT Carlton rich MD [facility] CPT-40076 Level 3 Est. Patient 18:16:00 STRAW HAT BRIM RAISER OPERATOR Blaine Freeman [facility] CPT-31198 Level 3 Est. Patient 09:45:49 STRAW HAT BRIM RAISER OPERATOR Carlton rich MD [facility] CPT-58438 Level 3 Est. Patient 13:19:20 CDT Carlton rich MD [facility] CPT-11456 Level 3 Est. Patient 13:06:43 CDT Ridge tam DO [facility] CPT-84176 Level 3 Est. Patient 10:03:07 CDT Perez Mora MD [facility] CPT-09363 Level 3 Est. Patient 19:50:35 STRAW HAT BRIM RAISER OPERATOR Carlton rich MD [facility] CPT-93430 Level 4 Est. Patient 18:05:01 STRAW HAT BRIM RAISER OPERATOR Carlton rich MD [facility] CPT-16655 Level 3 Est. Patient 10:45:55 STRAW HAT BRIM RAISER OPERATOR Hugo Restrepo MD [facility] CPT-15480 Level 3 Est. Patient 14:12:49 CDT Griffin lincoln [facility] CPT-94963 Level 3 Est. Patient 17:37:24 CDT Carlton rich MD [facility] CPT-38202 Level 3 Est. Patient 16:51:54 CDT Carlton rich MD [facility]-67839 Level 3 Est. Patient 12:18:11 CDT Hugo Restrepo MD [facility]-24113 Level 3 Est. Patient 11:30:25 CDT Marcy crisostomo MD PhD [facility] CPT-65124 Level 3 Est. Patient 12:00:47 STRAW HAT BRIM RAISER OPERATOR Carlton rich MD [facility] CPT-89688 Level 3 Est. Patient 16:31:06 STRAW HAT BRIM RAISER OPERATOR Carlton rich MD [facility]-79482 Level 3 Est. Patient 16:23:24 STRAW HAT BRIM RAISER OPERATOR Ridge tam [facility]-57214 Level 3 Est. Patient 12:34:12 CDT Carlton rich MD [facility] CPT-03521 Level 2 Est. Patient 15:43:33 CDT Robi armstrong MD [facility] CPT-86180 Level 4 Est. Patient 14:04:44 CDT Carlton rich MD [facility]-51815 Level 3 Est. Patient 05:47:59 CDT Ridge tam [facility] CPT-94621 Level 3 Est. Patient 13:12:53 STR[employer] HAT BRIM RAISER OPERATOR Carlton rich MD [facility]-56656 Level 3 Est. Patient 14:26:53 CDT Hugo Restrepo MD [facility] Procedures Code Procedure Name Date Entry Date Standard Desc ription CPT-J1040 Depo Medrol 80 mg (Methyl Prednisolone A cetate) 10:42:44 CDT CPT-J1100 Decadron 8mg (Dexamethasone) 10:42:44 CDT 2 CPT-J0696 Rocephin 1gm Inj Solr 14:32:13 CDT CPT-J1020 Depo Medrol 60 mg (Methyl Prednisolone A cetate) 14:32:13 CDT CPT-J1100 Decadron 6mg (Dexamethasone) 14:32:13 CDT 2 CPT-82301 Hip bilat min 2V w AP pelvis 13:16:20 CDT 2 CPT-82830 Pelvis only 13:07:33 CDT CPT-96785 Spec Collection and Handling Fee 11:25:12 C DT CPT-11064 Fluzone Quadrivalent Intramuscular Suspe nsion 0.5 ML 14:31:55 CDT CPT-86668 Abx/Therapy Injection 13:28:47 STRAW HAT BRIM RAISER OPERATOR CPT-J2930 Solu Medrol 125 mg (Methyl Prednisolone Sodium Succinate) 12:00:47 STRAW HAT BRIM RAISER OPERATOR CPT-70733 Venipuncture Draw Fee 11:33:31 CDT CPT-96990 EKG Trac and Interp 11:21:09 CDT CPT-34886 Chest 2V Frontal and Lat 11:21:09 CDT 12/15 CPT-25954 Venipuncture Draw Fee 08:02:34 CDT CPT-74215 Chest 2V Frontal and Lat 05:47:59 CDT 06/05
--- OUTSIDE RECORDS SUMMARY | 2019-10-08 08:35 | XMS REPORT | Clinical Summary ---
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 FLUTICASONE PRO PIONATE [id number] Active Elise Whitmore APRN Active ZITHROMAX 250 MG TAB 2 po today, then 1 po q days 2-5 AZITHROMYCIN 91708082261 No Longer Active Elise Whitmore APRN Acti ve XANAX 0.5 MG TABS one tablet by mouth daily prn anxiety ALPRAZOLAM 85566392158 Active Carlton Hu MD Active CYMBALTA 30 MG CPEP 1 cap by mouth daily for depression DULOXETINE HCL 05594347291 Active Carlton Hu MD Active CEFDINIR 300 MG CAPS 1 po BID x 10 days CEFDINI R 27979187630 No Longer Active Carlton Hu MD Active ZOCOR 40 MG TAB 1 tab by mouth daily SIMVASTATI N 22919574286 No Longer Active Carlton Hu MD Active CYCLOBENZAPRINE HCL 10 MG TABS 1 tablet by mouth BID prn had cherelle n CYCLOBENZAPRINE HCL 79830358078 No Longer Active Carlton Hu MD Active LEVOFLOXACIN 500 MG ORAL TABS 1 tab PO daily x 10 days LEVOFLOXACIN 57712123318 No Longer Active Carlton Hu MD Acti ve PREDNISONE 20 MG ORAL TABS 3 tab PO qd x 2d, 2 tab PO qd x 2d, 1 tab PO qd x 2d, 1/2 tab PO qd x 2d PREDNISONE 10277330798 No Longer Active Carlton Hu MD Active TUSSIONEX PENNKINETIC ER 10-8 MG/5ML ORAL LQCR 5 mL PO q 12 hrs PRN cough HYDROCOD POLST-CHLORPHEN POLST 55131111240 Active Elise Whitmore APRN Active FLUTICASONE PROPIONATE 50 MCG/ACT SUSP 1 to 2 sprays each no stril daily FLUTICASONE PROPIONATE 32857060015 No Longer Active T jaz HERNANDEZ Active CHERATUSSIN AC 100-10 MG/5ML SYRP 1 tsp by mouth every 4 hours as needed for cough GUAIFENESIN-CODEINE 19689138278 No Longer Activ e Blaine HERNANDEZ Active PROMETHAZINE-CODEINE 6.25-10 MG/5ML SYRP 1 tsp by mout h every 6 hours if needed for cough PROMETHAZINE-CODEINE 70523542893 No Long er Active Blaine HERNANDEZ Active CHERATUSSIN AC 100-10 MG/5ML SYRP 1 tsp by mouth every 4 hours as needed for cough GUAIFENESIN-CODEINE 75974686796 No Longer Activ e Blaine HERNANDEZ Active ZITHROMAX Z-REYNA 250 MG TABS 2 today, then 1 daily for 4 days 201 08/30/03 AZITHROMYCIN 83105497889 No Longer Active Columba Raida Act nael ZITHROMAX 250 MG TAB 2 po today, then 1 po q days 2-5 AZITHROMYCIN 69284867891 No Longer Active Carlton Hu MD Acti ve ZITHROMAX Z-REYNA 250 MG TABS 2 today, then 1 daily for 4 days 201 08/07/20 AZITHROMYCIN 80413281977 No Longer Active Columba Raida Act nael AUGMENTIN 875-125 MG TAB 1 po BID x 10 days AMOXICILLIN- POT CLAVULANATE 52817489301 No Longer Active Diya De Guzman APRN Active ZITHROMAX 250 MG TAB 2 po today, then 1 po q days 2-5 AZITHROMYCIN 68100327598 No Longer Active Carlton Hu MD Acti ve TRAMADOL HCL 50 MG TABS 1 po tid with ES Tylenol TRAMADOL HCL 16617865619 Active Carlton Hu MD Active PREMARIN 0.625 MG TABS TAKE 1 TAB BY MOUTH DAILY 07/25 ESTROGENS CONJUGATED 02268509487 No Longer Active Ridge Bess DO Active CYMBALTA 30 MG CPEP 1 cap by mouth daily DULOXE SNEHA HCL 97594296571 No Longer Active Ridge Bess DO Active AMOXICILLIN 500 MG CAP 1 tab by mouth 3 times daily x 10 days 20 14/04/28 AMOXICILLIN 42512861029 No Longer Active Carlton Hu MD Active AMOXICILLIN 500 MG CAP 1 tab by mouth 3 times daily x 10 days 20 13/03/08 AMOXICILLIN 78381516021 No Longer Active Carlton Hu MD Active PROMETHAZINE-CODEINE 6.25-10 MG/5ML SYRP 1 tsp by mouth ever y 8 hours prn cough PROMETHAZINE-CODEINE 27945108092 No Longer Active Robert Hu MD Active MEDROL (REYNA) 4 MG TABS 6 pills x 1 day, then 5 pill s x 1 day then 4 pills x 1 day, then 3 pills x 1 day, then 2 pills x 1 day, then 1 pill x 1 day, then stop METHYLPREDNISOLONE 60058294444 No Longer Active Parris Mora MD Active AZITHROMYCIN 250 MG TABS 2 po qd x 1 day, then 1 po qd x 4 days AZITHROMYCIN 22257875709 No Longer Active Perez Mora MD Active SYMBICORT 160-4.5 MCG/ACT AERO 2 puffs bid with rinse after 2011 BUDESONIDE-FORMOTEROL FUMARATE 20398861257 No Longer Active Perez Mora MD Active LYRICA 75 MG CAPS TAKE 1 CAPSULE BY MOUTH TWICE DAILY 2013 PREGABALIN 41173790444 No Longer Active Carlton Hu MD Active LYRICA 100 MG CAPS Take 1 tab po BID for fibromyalgia PREGABALIN 00266330278 Active Elise Whitmore APRN Active TOPAMAX 25 MG TABS 1 qHS x 1 week, then 1 BID x 1 week, then 1 qAM and 2 qHS x 1 week, then 2 BID (migraine prevention) TOPIRAMAT E 29924797951 No Longer Active Jerica Osei RMA Active TOPAMAX 50 MG TABS take 1 tab po BID for migraines. 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 CHERATUSSIN AC 100-10 MG/5ML SYRP 5ml po q6hr PRN Cough GUAIFENESIN-CODEINE 85262824627 No Longer Active Carlton Hu MD Active MEDROL (REYNA) 4 MG TABS 6 tabs on day 1, 5 tabs on d ay 2, 4 tabs on day 3, 3 tabs on day 4, 2 tabs on day 5, 1 tab on day 6 METHYLPREDNISOLONE 77537345714 No Longer Active Perez Mora MD Active AZITHROMYCIN 250 MG TABS 2 po qd x 1 day, then 1 po qd x 4 days AZITHROMYCIN 36282097730 No Longer Active Perez Mora MD Active PROPRANOLOL HCL 60 MG TABS 1 PO Q D PROPRANOL OL HCL 45002599061 No Longer Active Perez Mora MD Active CHERATUSSIN AC 100-10 MG/5ML SYRP take one tsp po Q 6hours prn c ough GUAIFENESIN-CODEINE 13738157828 No Longer Active Perez Means Active AUGMENTIN 875-125 MG TAB 1 tab by mouth twice daily with food 20 12/03/31 AMOXICILLIN-POT CLAVULANATE 52204206160 No Longer Active Chanel Mora MD Active CHERATUSSIN AC 100-10 MG/5ML SYRP 1 tsp by mouth every 4 hours as needed for cough GUAIFENESIN-CODEINE 12732109470 No Longer Activ e Hugo Restrepo MD Active ACETAMINOPHEN-CODEINE #3 300-30 MG TABS 1 PO Q 4-6 HRS PRN PAIN ACETAMINOPHEN-CODEINE 99586167502 No Longer Active Hugo Restrepo MD Active LEVAQUIN 500 MG TABS take one po QD LEVOFLOXACI N 35684785733 No Longer Active Griffin HERNANDEZ Active PREDNISONE 20 MG TAB Take 3 tabs daily for 3 days , 2 tabs daily for 3 days, 1 tab daily for 3 days, 1/2 tab daily for 3 days P REDNISONE 79042962162 No Longer Active Carlton Hu MD Active AVELOX 400 MG TABS 1 tab by mouth daily MOXIFLO XACIN HCL 61767873641 No Longer Active Carlton Hu MD Active CHERATUSSIN AC 100-10 MG/5ML SYRP 1 tsp by mouth every 4 hours as needed for cough GUAIFENESIN-CODEINE 27102631256 No Longer Activ e Hugo Restrepo MD Active AVELOX 400 MG TABS 1 tab by mouth daily MOXIFLO XACIN HCL 44292108951 No Longer Active Marcy De La Rosa MD PhD Active TERBINAFINE HCL 250 MG TABS 1 qDay TERBINAF INE HCL 89111515721 No Longer Active Marcy De La Rosa MD PhD Active CHERATUSSIN AC 100-10 MG/5ML SYRP 1 tsp by mouth every 4 hours as needed for cough GUAIFENESIN-CODEINE 95100232910 No Longer Activ e Marcy De La Rosa MD PhD Active AVELOX 400 MG TABS 1 tab by mouth daily MOXIFLO XACIN HCL 81895686606 No Longer Active Marcy De La Rosa MD PhD Active HYDROCODONE-ACETAMINOPHEN 5-325 MG TABS 1 po q 6hr PRN cough 201 05/09/16 HYDROCODONE-ACETAMINOPHEN 61640857758 No Longer Active Marcy De La Rosa MD PhD Active PREDNISONE 20 MG TAB 2 tabs daily for 3 days, 1 t ab daily for 3 days, 1/2 tab daily for 2 days PREDNISONE 87312065345 No Longer Active Carlton Hu MD Active CEFDINIR 300 MG CAPS by mouth twice a day CEFDI ODILIA 59424599674 No Longer Active Carlton Hu MD Active HYDROCHLOROTHIAZIDE 25 MG TABS 1 TAB PO DAILY H YDROCHLOROTHIAZIDE 41821573031 Active Carlton Hu MD Active ACETAMINOPHEN-CODEINE #3 300-30 MG TABS 1 tablet po q 4-6hrs prn pain ACETAMINOPHEN-CODEINE 91855710156 No Longer Active Ridge Bess DO Active ZITHROMAX 250 MG TAB 2 po today, then 1 po q days 2-5 AZITHROMYCIN 17366701295 No Longer Active Carlton Hu MD Acti ve CHERATUSSIN AC 100-10 MG/5ML SYRP take 1 tsp po q4-6 hours prn c ough GUAIFENESIN-CODEINE 72861858539 No Longer Active Carlton Hu MD Active ACETAMINOPHEN-CODEINE #3 300-30 MG TABS 1 PO Q 4-6 HR PRN PAIN 2 ACETAMINOPHEN-CODEINE 48555936633 No Longer Active Carlton rich MD Active LORTAB 7.5-500 MG/15ML ELIX 7.5 ml po q 4 hour prn cough HYDROCODONE-ACETAMINOPHEN 48017081278 No Longer Active Carlton Hu MD Active PREDNISONE 20 MG TAB 1 po bid 3 days, then 1 po q day 3 days 201 05/03/07 PREDNISONE 46882019146 No Longer Active Carlton Hu MD Active ELMIRON 100 MG CAPS 2 tablets in the am and 1 tablet at hs PENTOSAN POLYSULFATE SODIUM 53064313347 Active Carlton Hu MD Ac tive CEFDINIR 300 MG CAPS by mouth twice a day CEFDI ODILIA 33842597722 No Longer Active Carlton Hu MD Active CEFDINIR 300 MG CAPS by mouth twice a day CEFDI ODILIA 90160079329 No Longer Active Carlton Hu MD Active CEFDINIR 300 MG CAPS by mouth twice a day CEFDI ODILIA 74659989388 No Longer Active Carlton Hu MD Active TESSALON PERLES 100 MG CAP 1 tablet by mouth 3 times daily a s needed for cough BENZONATATE 70793246463 No Longer Active Carlton bustamante MD Active CEFDINIR 300 MG CAPS by mouth twice a day CEFDI ODILIA 35678532293 No Longer Active Carlton Hu MD Active ZITHROMAX Z-REYNA 250 MG TABS 2 today, then 1 daily for 4 days 201 04/09/17 AZITHROMYCIN 40660783351 No Longer Active Hugo Restrepo MD Active TESSALON PERLES 100 MG CAP 1 tablet by mouth 3 times daily a s needed for cough TESSALON PERLES 100 MG CAP 624225 BENZONATATE I nactive PREDNISONE 20 MG TAB 1 po bid 3 days, then 1 po q day 3 days 201 05/03/07 PREDNISONE 20 MG TAB 971360 PREDNISONE Inactive LORTAB 7.5-500 MG/15ML ELIX 7.5 ml po q 4 hour prn cough LORTAB 7.5-500 MG/15ML ELIX HYDROCODONE-ACETAMINOPHEN Inacti ve ACETAMINOPHEN-CODEINE #3 300-30 MG TABS 1 PO Q 4-6 HR PRN PAIN 2 ACETAMINOPHEN-CODEINE #3 300-30 MG TABS 149974 ACETAMIN OPHEN-CODEINE Inactive CHERATUSSIN AC 100-10 MG/5ML SYRP take 1 tsp po q4-6 hours prn c ough CHERATUSSIN AC 100-10 MG/5ML SYRP 211713 GUAIFENESIN-CO DEINE Inactive ACETAMINOPHEN-CODEINE #3 300-30 MG TABS 1 tablet po q 4-6hrs prn pain ACETAMINOPHEN-CODEINE #3 300-30 MG TABS 485736 ACETAMIN OPHEN-CODEINE Inactive HYDROCODONE-ACETAMINOPHEN 5-325 MG TABS 1 po q 6hr PRN cough 201 05/09/16 HYDROCODONE-ACETAMINOPHEN 5-325 MG TABS 534347 HYDROCODONE-ACETAMINOPHEN Inactive AVELOX 400 MG TABS 1 tab by mouth daily A VELOX 400 MG TABS 106707 MOXIFLOXACIN HCL Inactive CHERATUSSIN AC 100-10 MG/5ML SYRP 1 tsp by mouth every 4 hours as needed for cough CHERATUSSIN AC 100-10 MG/5ML SYRP 692141 GUAIFENESIN-CODEINE Inactive TERBINAFINE HCL 250 MG TABS 1 qDay TERBINAFINE HCL 250 MG TABS 386857 TERBINAFINE HCL Inactive CHERATUSSIN AC 100-10 MG/5ML SYRP 1 tsp by mouth every 4 hours as needed for cough CHERATUSSIN AC 100-10 MG/5ML SYRP 303633 GUAIFENESIN-CODEINE Inactive ACETAMINOPHEN-CODEINE #3 300-30 MG TABS 1 PO Q 4-6 HRS PRN PAIN ACETAMINOPHEN-CODEINE #3 300-30 MG TABS 127415 ACETAMINOPHEN-CODEIN E Inactive CHERATUSSIN AC 100-10 MG/5ML SYRP 1 tsp by mouth every 4 hours as needed for cough CHERATUSSIN AC 100-10 MG/5ML SYRP 704012 GUAIFENESIN-CODEINE Inactive AUGMENTIN 875-125 MG TAB 1 tab by mouth twice daily with food 20 12/03/31 AUGMENTIN 875-125 MG TAB 942406 AMOXICILLIN-POT CLAVULA EFE Inactive CHERATUSSIN AC 100-10 MG/5ML SYRP take one tsp po Q 6hours prn c ough CHERATUSSIN AC 100-10 MG/5ML SYRP 883629 GUAIFENESIN-CO DEINE Inactive PROPRANOLOL HCL 60 MG TABS 1 PO Q D P ROPRANOLOL HCL 60 MG TABS 832489 PROPRANOLOL HCL Inactive TOPAMAX 50 MG TABS take 1 tab po BID for migraines. 12/07/10 TOPAMAX 50 MG TABS 866421 TOPIRAMATE Inactive TOPAMAX 25 MG TABS 1 qHS x 1 week, then 1 BID x 1 week, then 1 qAM and 2 qHS x 1 week, then 2 BID (migraine prevention) TOPAMAX 2 5 MG TABS 504812 TOPIRAMATE Inactive LYRICA 75 MG CAPS TAKE 1 CAPSULE BY MOUTH TWICE DAILY LYRICA 75 MG CAPS PREGABALIN Inactive SYMBICORT 160-4.5 MCG/ACT AERO 2 puffs bid with rinse after 2011 SYMBICORT 160-4.5 MCG/ACT AERO BUDESONIDE-FORMOT SÁNCHEZ FUMARATE Inactive PROMETHAZINE-CODEINE 6.25-10 MG/5ML SYRP 1 tsp by mouth ever y 8 hours prn cough PROMETHAZINE-CODEINE 6.25-10 MG/5ML SYRP 457423 PROMETHAZINE-CODEINE Inactive CYMBALTA 30 MG CPEP 1 cap by mouth daily CYMBALTA 30 MG CPEP 854598 DULOXETINE HCL Inactive PREMARIN 0.625 MG TABS TAKE 1 TAB BY MOUTH DAILY 07/25 PREMARIN 0.625 MG TABS ESTROGENS CONJUGATED Inactive CHERATUSSIN AC 100-10 MG/5ML SYRP 1 tsp by mouth every 4 hours as needed for cough CHERATUSSIN AC 100-10 MG/5ML SYRP 187373 GUAIFENESIN-CODEINE Inactive PROMETHAZINE-CODEINE 6.25-10 MG/5ML SYRP 1 tsp by mout h every 6 hours if needed for cough PROMETHAZINE-CODEINE 6.25-10 MG/5ML SYRP 013459 PROMETHAZINE-CODEINE Inactive CHERATUSSIN AC 100-10 MG/5ML SYRP 1 tsp by mouth every 4 hours as needed for cough CHERATUSSIN AC 100-10 MG/5ML SYRP 597416 GUAIFENESIN-CODEINE Inactive FLUTICASONE PROPIONATE 50 MCG/ACT SUSP 1 to 2 sprays each no stril daily FLUTICASONE PROPIONATE 50 MCG/ACT SUSP 747097 FLUTICASONE PROPIONATE Inactive PREDNISONE 20 MG ORAL TABS 3 tab PO qd x 2d, 2 tab PO qd x 2d, 1 tab PO qd x 2d, 1/2 tab PO qd x 2d PREDNISONE 20 MG ORAL TABS 063791 PREDNISONE Inactive LEVOFLOXACIN 500 MG ORAL TABS 1 tab PO daily x 10 days LEVOFLOXACIN 500 MG ORAL TABS 478531 LEVOFLOXACIN Inactive CYCLOBENZAPRINE HCL 10 MG TABS 1 tablet by mouth BID prn had cherelle n CYCLOBENZAPRINE HCL 10 MG TABS 024835 CYCLOBENZAPRINE H CL Inactive ZOCOR 40 MG TAB 1 tab by mouth daily ZOCOR 40 M G TAB 177636 SIMVASTATIN Inactive ZITHROMAX Z-REYNA 250 MG TABS 2 today, then 1 daily for 4 days 201 04/09/17 ZITHROMAX Z-REYNA 250 MG TABS 1712407 AZITHROMYCIN Inac tive CEFDINIR 300 MG CAPS [...] q days 2-5 ZITHROMAX 250 MG TAB 2516527 AZITHROMYCIN Inactive CEFDINIR 300 MG CAPS by mouth twice a day CEFDINIR 300 MG CAPS 801609 CEFDINIR Inactive PREDNISONE 20 MG TAB 2 tabs daily for 3 days, 1 t ab daily for 3 days, 1/2 tab daily for 2 days PREDNISONE 20 MG TAB 833599 PREDNISON E Inactive AVELOX 400 MG TABS 1 tab by mouth daily A VELOX 400 MG TABS 614459 MOXIFLOXACIN HCL Inactive AVELOX 400 MG TABS 1 tab by mouth daily A VELOX 400 MG TABS 119610 MOXIFLOXACIN HCL Inactive PREDNISONE 20 MG TAB Take 3 tabs daily for 3 days , 2 tabs daily for 3 days, 1 tab daily for 3 days, 1/2 tab daily for 3 days PREDNISONE 20 MG TAB 436985 PREDNISONE Inactive LEVAQUIN 500 MG TABS take one po QD LEVAQUIN 50 0 MG TABS 534208 LEVOFLOXACIN Inactive AZITHROMYCIN 250 MG TABS 2 po qd x 1 day, then 1 po qd x 4 days AZITHROMYCIN 250 MG TABS 4768921 AZITHROMYCIN Inactiv e MEDROL (REYNA) 4 MG TABS 6 tabs on day 1, 5 tabs on d ay 2, 4 tabs on day 3, 3 tabs on day 4, 2 tabs on day 5, 1 tab on day 6 MEDROL (REYNA) 4 MG TABS 345205 METHYLPREDNISOLONE Inactive CHERATUSSIN AC 100-10 MG/5ML SYRP 5ml po q6hr PRN Cough CHERATUSSIN AC 100-10 MG/5ML SYRP 301876 GUAIFENESIN-CODEINE Inacti ve TRIAMCINOLONE ACETONIDE 0.1 % CREA apply three times daily prn r beatrice TRIAMCINOLONE ACETONIDE 0.1 % CREA 0221473 TRIAMCINOLONE ACETONIDE Inactive AZITHROMYCIN 250 MG TABS 2 po qd x 1 day, then 1 po qd x 4 days AZITHROMYCIN 250 MG TABS 3891731 AZITHROMYCIN Inactiv e MEDROL (REYNA) 4 MG TABS 6 pills x 1 day, then 5 pill s x 1 day then 4 pills x 1 day, then 3 pills x 1 day, then 2 pills x 1 day, then 1 pill x 1 day, then stop MEDROL (REYNA) 4 MG TABS 743840 METHYLPREDNISOLONE Inactive AMOXICILLIN 500 MG CAP 1 tab by mouth 3 times daily x 10 days 20 13/03/08 AMOXICILLIN 500 MG CAP 387916 AMOXICILLIN Inactive AMOXICILLIN 500 MG CAP 1 tab by mouth 3 times daily x 10 days 20 14/04/28 AMOXICILLIN 500 MG CAP 704903 AMOXICILLIN Inactive ZITHROMAX 250 MG TAB 2 po today, then 1 po q days 2-5 ZITHROMAX 250 MG TAB 7672432 AZITHROMYCIN Inactive AUGMENTIN 875-125 MG TAB 1 po BID x 10 days AUGMENTIN 875- 125 MG TAB 028625 AMOXICILLIN-POT CLAVULANATE Inactive ZITHROMAX Z-REYNA 250 MG TABS 2 today, then 1 daily for 4 days 201 08/07/20 ZITHROMAX Z-REYNA 250 MG TABS 1911266 AZITHROMYCIN Inac tive ZITHROMAX 250 MG TAB 2 po today, then 1 po q days 2-5 ZITHROMAX 250 MG TAB 1344637 AZITHROMYCIN Inactive ZITHROMAX Z-REYNA 250 MG TABS 2 today, then 1 daily for 4 days 201 08/30/03 ZITHROMAX Z-REYNA 250 MG TABS 7234692 AZITHROMYCIN Inac tive CEFDINIR 300 MG CAPS 1 po BID x 10 days C EFDINIR 300 MG CAPS 197087 CEFDINIR Inactive ZITHROMAX 250 MG TAB 2 po today, then 1 po q days 2-5 ZITHROMAX 250 MG TAB 8544952 AZITHROMYCIN Inactive Vital Signs Date Name Value [...] Measured Encounters Code Encounter Date Provider Facility CPT-03362 Level 3 Est. Patient 11:58:06 CDT Elise Cesar chelly RICEN [facility] CPT-76247 Level 4 Est. Patient 14:36:51 CDT Carlton rich MD [facility] CPT-30637 Level 3 Est. Patient 18:16:00 KNOT TIER [facility] CPT-78214 Level 3 Est. Patient 09:45:49 KNOT TIER Carlton rich MD [facility] CPT-54980 Level 3 Est. Patient 13:19:20 CDT Carlton rich MD [facility] CPT-59357 Level 3 Est. Patient 13:06:43 CDT Ridge tam DO [facility] CPT-59432 Level 3 Est. Patient 10:03:07 CDT Perez Mora MD [facility] CPT-62326 Level 3 Est. Patient 19:50:35 KNOT TIER Carlton rich MD [facility] CPT-46680 Level 4 Est. Patient 18:05:01 KNOT TIER Carlton rich MD [facility] CPT-62061 Level 3 Est. Patient 10:45:55 KNOT TIER Hugo Restrepo MD [facility] CPT-63507 Level 3 Est. Patient 14:12:49 CDT Griffin lincoln [facility] CPT-49995 Level 3 Est. Patient 17:37:24 CDT Carlton rich MD [facility] CPT-14145 Level 3 Est. Patient 16:51:54 CDT Carlton rich MD [facility] CPT-57283 Level 3 Est. Patient 12:18:11 CDT Hugo Restrepo MD [facility] CPT-29707 Level 3 Est. Patient 11:30:25 CDT Marcy crisostomo MD PhD [facility] CPT-37255 Level 3 Est. Patient 12:00:47 KNOT TIER Carlton rich MD [facility] CPT-00244 Level 3 Est. Patient 16:31:06 KNOT TIER Carlton rich MD [facility] CPT-55167 Level 3 Est. Patient 16:23:24 KNOT TIER Ridge tam [facility] CPT-81598 Level 3 Est. Patient 12:34:12 CDT Carlton rich MD [facility] CPT-47014 Level 2 Est. Patient 15:43:33 CDT Robi armstrong MD [facility] CPT-55610 Level 4 Est. Patient 14:04:44 CDT Carlton rich MD [facility] CPT-62334 Level 3 Est. Patient 05:47:59 CDT Ridge tam [facility] CPT-71049 Level 3 Est. Patient 13:12:53 KNOT TIER Carlton rich MD [facility] CPT-56329 Level 3 Est. Patient 14:26:53 CDT Hugo Restrepo MD [facility] Procedures Code Procedure Name Date Entry Date Standard Desc ription CPT-J0696 Rocephin 1gm Inj Solr 14:32:13 CDT CPT-J1020 Depo Medrol 60 mg (Methyl Prednisolone A cetate) 14:32:13 CDT CPT-J1100 Decadron 6mg (Dexamethasone) 14:32:13 CDT 2 CPT-03630 Hip bilat min 2V w AP pelvis 13:16:20 CDT 2 CPT-83586 Pelvis only 13:07:33 CDT CPT-02328 Spec Collection and Handling Fee 11:25:12 C DT CPT-10588 Fluzone Quadrivalent Intramuscular Suspe nsion 0.5 ML 14:31:55 CDT CPT-61148 Abx/Therapy Injection 13:28:47 KNOT TIER CPT-J2930 Solu Medrol 125 mg (Methyl Prednisolone Sodium Succinate) 12:00:47 KNOT TIER CPT-06480 Venipuncture Draw Fee 11:33:31 CDT CPT-99955 EKG Trac and Interp 11:21:09 CDT CPT-26640 Chest 2V Frontal and Lat 11:21:09 CDT 12/15 CPT-77167 Venipuncture Draw Fee 08:02:34 CDT CPT-84708 Chest 2V Frontal and Lat 05:47:59 CDT 06/05
--- OUTSIDE RECORDS SUMMARY | 2019-10-08 08:36 | XMS REPORT | Clinical Summary ---
Author Author Caitlin, Juliana Martinez Organization [facility] Address Unknown Phone Unavailable Allergies, Adverse [...] - acute ICD-465.9 Inactive Hugo Restrepo MD MAXILLARY SINUSITIS ICD-473.0 Inactive Marcy De La Rosa MD PhD Sinusitis ICD-473.9 Inactive Hugo Restrepo MD Bronchitis ICD-490 Inactive Hugo Restrepo MD 201 10/02/29 Pharyngitis acute ICD-462 Inactive Hugo gore MD Rhinitis, acute ICD-460 Inactive Hugo Ochoa MD Medication List Medication Instructions Start Date Stop Date Generic Name NDC Status Provider Patient Instruction POTASSIUM CHLORIDE ER 20 MEQ ORAL CR-TABS Take 1 by mo uth 4 times daily for 7 days POTASSIUM CHLORIDE [id number] Active Columba Raida Active TUSSIONEX PENNKINETIC ER 10-8 MG/5ML LQCR 5ml po q12hr PRN Cough 20 14/09/04 HYDROCOD POLST-CHLORPHEN POLST 94921939896 Active Elise Whitmore APRN Active ZITHROMAX 250 MG TAB 2 po today, then 1 po q days 2-5 AZITHROMYCIN 34799680094 No Longer Active Elise Whitmore APRN Acti ve TUSSIONEX PENNKINETIC ER 10-8 MG/5ML LQCR 5 ml twice a day a s needed for cough HYDROCOD POLST-CHLORPHEN POLST 38154735587 N o Longer Active Elise Whitmore APRN Active MONTELUKAST SODIUM 10 MG ORAL TABS 1 po daily for Allergy 6 MONTELUKAST SODIUM 33902816287 Active Carlton Hu MD Ac tive TUSSIONEX PENNKINETIC ER 10-8 MG/5ML LQCR 5ml po q12hr PRN Cough HYDROCOD POLST-CHLORPHEN POLST 46842305583 No Longer Active Hugo Restrepo MD Active GABAPENTIN 100 MG CAPS 1 po BID for fibromyalgia GABAPENTIN 24828643655 Active Elise Whitmore APRN Active LYRICA 100 MG CAPS Take 1 tab po BID for fibromyalgia PREGABALIN 92119019714 No Longer Active Elise Whitmore APRN Acti ve PROAIR HFA 108 (90 BASE) MCG/ACT AERS 2 puffs four times a d ay as needed ALBUTEROL SULFATE 36176390413 Active Elise Whitmore APRN Active MUCINEX DM MAXIMUM STRENGTH 60-1200 MG [id number] 1 tab po q am 2016 DEXTROMETHORPHAN-GUAIFENESIN 59843971184 Active Jillina Frazell PRESCHOOL ASSISTANT Active PREDNISONE 20 MG TAB 2 tabs daily for 3 days, 1 t ab daily for 3 days, 1/2 tab daily for 2 days PREDNISONE 03663580147 No Longer Active Jillina Frazell PRESCHOOL ASSISTANT Active TUSSIONEX PENNKINETIC ER 10-8 MG/5ML ORAL LQCR 5 mL PO q 12 hrs PRN cough HYDROCOD POLST-CHLORPHEN POLST 80016133055 No Longer Active Jillina Frazell PRESCHOOL ASSISTANT Active FLUTICASONE PROPIONATE 50 MCG/ACT SUSP 2 sprays each n ostril daily until bottle is empty FLUTICASONE PROPIONATE 79228929271 No Longer Ac tive Jillina Frazell PRESCHOOL ASSISTANT Active ASMANEX 60 METERED DOSES 220 MCG/INH AEPB 1 puff bid with ri nse after MOMETASONE FUROATE 98938580961 No Longer Active Diya meneses PRESCHOOL ASSISTANT Active ZITHROMAX Z-REYNA 250 MG TABS 2 today, then 1 daily for 4 days 201 09/29/14 AZITHROMYCIN 58170992643 No Longer Active Elise Whitmore PRESCHOOL ASSISTANT Active TUSSIONEX PENNKINETIC ER 10-8 MG/5ML LQCR 5ml po q12hr PRN Cough HYDROCOD POLST-CHLORPHEN POLST 47753751118 No Longer Active Elise Whitmore PRESCHOOL ASSISTANT Active MUCINEX D 60-600 MG [id number] 1 tab po q am PSEUDOEPHEDRINE-GUAIFENESIN 58369368788 Active Diya De Guzman PRESCHOOL ASSISTANT Active PREDNISONE 20 MG TAB 2 tabs daily for 3 days, 1 t ab daily for 3 days, 1/2 tab daily for 2 days PREDNISONE 23075068370 No Longer Active Diya De Guzman PRESCHOOL ASSISTANT Active AMOXICILLIN 500 MG CAPS 2 po BID x 10 days AMOX ICILLIN 63864625485 No Longer Active Diya De Guzman PRESCHOOL ASSISTANT Active SINGULAIR 10 MG TABS 1 po qday for allergies 2 MONTELUKAST SODIUM 88135797522 No Longer Active Carlton Hu MD Acti ve LEVAQUIN 500 MG TAB 1 tablet by mouth daily LEV OFLOXACIN 64329831426 No Longer Active Carlton Hu MD Active FLUTICASONE PROPIONATE 50 MCG/ACT SUSP 2 sprays each n ostril daily for 2 weeks, then 1 spray each nostril daily. FLUTICASONE PRO PIONATE 14964530416 Active Elise Whitmore APRN Active ZITHROMAX 250 MG TAB 2 po today, then 1 po q days 2-5 AZITHROMYCIN 18117353023 No Longer Active Elise Whitmore APRN Acti ve XANAX 0.5 MG TABS one tablet by mouth daily prn anxiety ALPRAZOLAM 43533547246 Active Carlton Hu MD Active CYMBALTA 30 MG CPEP 1 cap by mouth daily for depression DULOXETINE HCL 41612104872 Active Carlton Hu MD Active CEFDINIR 300 MG CAPS 1 po BID x 10 days CEFDINI R 81216587471 No Longer Active Carlton Hu MD Active ZOCOR 40 MG TAB 1 tab by mouth daily SIMVASTATI N 32995766154 No Longer Active Carlton Hu MD Active CYCLOBENZAPRINE HCL 10 MG TABS 1 tablet by mouth BID prn had cherelle n CYCLOBENZAPRINE HCL 64758597778 No Longer Active Carlton Hu MD Active LEVOFLOXACIN 500 MG ORAL TABS 1 tab PO daily x 10 days LEVOFLOXACIN 40644426502 No Longer Active Carlton Hu MD Acti ve PREDNISONE 20 MG ORAL TABS 3 tab PO qd x 2d, 2 tab PO qd x 2d, 1 tab PO qd x 2d, 1/2 tab PO qd x 2d PREDNISONE 99791542789 No Longer Active Carlton Hu MD Active FLUTICASONE PROPIONATE 50 MCG/ACT SUSP 1 to 2 sprays each no stril daily FLUTICASONE PROPIONATE 69094478469 No Longer Active T jaz HERNANDEZ Active CHERATUSSIN AC 100-10 MG/5ML SYRP 1 tsp by mouth every 4 hours as needed for cough GUAIFENESIN-CODEINE 91836591563 No Longer Activ e Blaine HERNANDEZ Active PROMETHAZINE-CODEINE 6.25-10 MG/5ML SYRP 1 tsp by mout h every 6 hours if needed for cough PROMETHAZINE-CODEINE 28193062494 No Long er Active Blaine HERNANDEZ Active CHERATUSSIN AC 100-10 MG/5ML SYRP 1 tsp by mouth every 4 hours as needed for cough GUAIFENESIN-CODEINE 79981661695 No Longer Activ Jorge Luis HERNANDEZ Active ZITHROMAX Z-REYNA 250 MG TABS 2 today, then 1 daily for 4 days 201 08/30/03 AZITHROMYCIN 23610114970 No Longer Active Columba Raida Act nael ZITHROMAX 250 MG TAB 2 po today, then 1 po q days 2-5 AZITHROMYCIN 55571640072 No Longer Active Carlton Hu MD Acti ve ZITHROMAX Z-REYNA 250 MG TABS 2 today, then 1 daily for 4 days 201 08/07/20 AZITHROMYCIN 82185689314 No Longer Active Columba Raida Act nael AUGMENTIN 875-125 MG TAB 1 po BID x 10 days AMOXICILLIN- POT CLAVULANATE 51098785867 No Longer Active Jillshakira Guerrerol PRESCHOOL ASSISTANT Active ZITHROMAX 250 MG TAB 2 po today, then 1 po q days 2-5 AZITHROMYCIN 59533016552 No Longer Active Carlton Hu MD Acti ve TRAMADOL HCL 50 MG TABS 1 po tid with ES Tylenol TRAMADOL HCL 74522407150 Active Carlton Hu MD Active PREMARIN 0.625 MG TABS TAKE 1 TAB BY MOUTH DAILY 07/25 ESTROGENS CONJUGATED 21705042689 No Longer Active Ridge Bess DO Active CYMBALTA 30 MG CPEP 1 cap by mouth daily DULOXE SNEHA HCL 85746795954 No Longer Active Ridge Bess DO Active AMOXICILLIN 500 MG CAP 1 tab by mouth 3 times daily x 10 days 20 14/04/28 AMOXICILLIN 30149714605 No Longer Active Carlton Hu MD Active AMOXICILLIN 500 MG CAP 1 tab by mouth 3 times daily x 10 days 20 13/03/08 AMOXICILLIN 67841260186 No Longer Active Carlton Hu MD Active PROMETHAZINE-CODEINE 6.25-10 MG/5ML SYRP 1 tsp by mouth ever y 8 hours prn cough PROMETHAZINE-CODEINE 08679383219 No Longer Active Robert Hu MD Active MEDROL (REYNA) 4 MG TABS 6 pills x 1 day, then 5 pill s x 1 day then 4 pills x 1 day, then 3 pills x 1 day, then 2 pills x 1 day, then 1 pill x 1 day, then stop METHYLPREDNISOLONE 84067154097 No Longer Active Parris Mora MD Active AZITHROMYCIN 250 MG TABS 2 po qd x 1 day, then 1 po qd x 4 days AZITHROMYCIN 70296152451 No Longer Active Perez Mora MD Active SYMBICORT 160-4.5 MCG/ACT AERO 2 puffs bid with rinse after 2011 BUDESONIDE-FORMOTEROL FUMARATE 15232548989 No Longer Active Perez Mora MD Active LYRICA 75 MG CAPS TAKE 1 CAPSULE BY MOUTH TWICE DAILY 2013 PREGABALIN 89911604331 No Longer Active Carlton Hu MD Active TOPAMAX 25 MG TABS 1 qHS x 1 week, then 1 BID x 1 week, then 1 qAM and 2 qHS x 1 week, then 2 BID (migraine prevention) TOPIRAMAT E 96829410508 No Longer Active Jerica FUENTES Active TOPAMAX 50 MG TABS take 1 tab po BID for migraines. 12/07/10 TOPIRAMATE 63659323407 No Longer Active Jerica FUENTES Ac tive TOPAMAX 100 MG TABS Take 1 tablet po bid TOPIRAMATE 4999 1889889 Active Carlton Hu MD Active TRIAMCINOLONE ACETONIDE 0.1 % CREA apply three times daily prn r beatrice TRIAMCINOLONE ACETONIDE 20119516627 No Longer Active Carlton Hu MD Active PAXIL 40 MG TAB take 1 tab po qday for depression PAROXETINE HCL 40004367833 Active Carlton Hu MD Active CHERATUSSIN AC 100-10 MG/5ML SYRP 5ml po q6hr PRN Cough GUAIFENESIN-CODEINE 46241138645 No Longer Active Carltno Hu MD Active MEDROL (REYNA) 4 MG TABS 6 tabs on day 1, 5 tabs on d ay 2, 4 tabs on day 3, 3 tabs on day 4, 2 tabs on day 5, 1 tab on day 6 METHYLPREDNISOLONE 89561364274 No Longer Active Perez Mora MD Active AZITHROMYCIN 250 MG TABS 2 po qd x 1 day, then 1 po qd x 4 days AZITHROMYCIN 33037433116 No Longer Active Perez Mora MD Active PROPRANOLOL HCL 60 MG TABS 1 PO Q D PROPRANOL OL HCL 58225263471 No Longer Active Perez Mora MD Active CHERATUSSIN AC 100-10 MG/5ML SYRP take one tsp po Q 6hours prn c ough GUAIFENESIN-CODEINE 68125065200 No Longer Active Perez Means Active AUGMENTIN 875-125 MG TAB 1 tab by mouth twice daily with food 12/03/31 AMOXICILLIN-POT CLAVULANATE 31317300331 No Longer Active Chanel Mora MD Active CHERATUSSIN AC 100-10 MG/5ML SYRP 1 tsp by mouth every 4 hours as needed for cough GUAIFENESIN-CODEINE 29735796256 No Longer Activ e Hugo Restrepo MD Active ACETAMINOPHEN-CODEINE #3 300-30 MG TABS 1 PO Q 4-6 HRS PRN PAIN ACETAMINOPHEN-CODEINE 98789658490 No Longer Active Hugo Restrepo MD Active LEVAQUIN 500 MG TABS take one po QD LEVOFLOXACI N 38049253489 No Longer Active Griffin HERNANDEZ Active PREDNISONE 20 MG TAB Take 3 tabs daily for 3 days , 2 tabs daily for 3 days, 1 tab daily for 3 days, 1/2 tab daily for 3 days P REDNISONE 60322442183 No Longer Active Carlton Hu MD Active AVELOX 400 MG TABS 1 tab by mouth daily MOXIFLO XACIN HCL 48015992333 No Longer Active Carlton Hu MD Active CHERATUSSIN AC 100-10 MG/5ML SYRP 1 tsp by mouth every 4 hours as needed for cough GUAIFENESIN-CODEINE 55861172814 No Longer Activ e Hugo Restrepo MD Active AVELOX 400 MG TABS 1 tab by mouth daily MOXIFLO XACIN HCL 53272591865 No Longer Active Marcy De La Rosa MD PhD Active TERBINAFINE HCL 250 MG TABS 1 qDay TERBINAF INE HCL 22106762255 No Longer Active Marcy De La Rosa MD PhD Active CHERATUSSIN AC 100-10 MG/5ML SYRP 1 tsp by mouth every 4 hours as needed for cough GUAIFENESIN-CODEINE 13059505656 No Longer Activ e Marcy De La Rosa MD PhD Active AVELOX 400 MG TABS 1 tab by mouth daily MOXIFLO XACIN HCL 61695687836 No Longer Active Marcy De La Rosa MD PhD Active HYDROCODONE-ACETAMINOPHEN 5-325 MG TABS 1 po q 6hr PRN cough 201 05/09/16 HYDROCODONE-ACETAMINOPHEN 24998211033 No Longer Active Marcy De La Rosa MD PhD Active PREDNISONE 20 MG TAB 2 tabs daily for 3 days, 1 t ab daily for 3 days, 1/2 tab daily for 2 days PREDNISONE 75560261368 No Longer Active Carlton Hu MD Active CEFDINIR 300 MG CAPS by mouth twice a day CEFDI ODILIA 37191989607 No Longer Active Carlton Hu MD Active HYDROCHLOROTHIAZIDE 25 MG TABS 1 TAB PO DAILY H YDROCHLOROTHIAZIDE 85284506251 Active Carlton Hu MD Active ACETAMINOPHEN-CODEINE #3 300-30 MG TABS 1 tablet po q 4-6hrs prn pain ACETAMINOPHEN-CODEINE 71334283594 No Longer Active Ridge Bess DO Active ZITHROMAX 250 MG TAB 2 po today, then 1 po q days 2-5 AZITHROMYCIN 90356952099 No Longer Active Carlton Hu MD Acti ve CHERATUSSIN AC 100-10 MG/5ML SYRP take 1 tsp po q4-6 hours prn c ough GUAIFENESIN-CODEINE 51497195141 No Longer Active Carlton Hu MD Active ACETAMINOPHEN-CODEINE #3 300-30 MG TABS 1 PO Q 4-6 HR PRN PAIN 2 ACETAMINOPHEN-CODEINE 77154237857 No Longer Active Carlton rich MD Active LORTAB 7.5-500 MG/15ML ELIX 7.5 ml po q 4 hour prn cough HYDROCODONE-ACETAMINOPHEN 56699545101 No Longer Active Carlton Hu MD Active PREDNISONE 20 MG TAB 1 po bid 3 days, then 1 po q day 3 days 201 05/03/07 PREDNISONE 26022363500 No Longer Active Carlton Hu MD Active ELMIRON 100 MG CAPS 2 tablets in the am and 1 tablet at hs PENTOSAN POLYSULFATE SODIUM 09649613344 Active Carlton Hu MD Ac tive CEFDINIR 300 MG CAPS by mouth twice a day CEFDI ODILIA 63543032308 No Longer Active Carlton Hu MD Active CEFDINIR 300 MG CAPS by mouth twice a day CEFDI ODILIA 47010893341 No Longer Active Carlton Hu MD Active CEFDINIR 300 MG CAPS by mouth twice a day CEFDI ODILIA 14420075002 No Longer Active Carlton Hu MD Active TESSALON PERLES 100 MG CAP 1 tablet by mouth 3 times daily a s needed for cough BENZONATATE 65553391921 No Longer Active Carlton bustamante MD Active CEFDINIR 300 MG CAPS by mouth twice a day CEFDI ODILIA 32795031032 No Longer Active Carlton Hu MD Active ZITHROMAX Z-REYNA 250 MG TABS 2 today, then 1 daily for 4 days 201 04/09/17 AZITHROMYCIN 59165500694 No Longer Active Hugo Restrepo MD Active TESSALON PERLES 100 MG CAP 1 tablet by mouth 3 times daily a s needed for cough TESSALON PERLES 100 MG CAP 977022 BENZONATATE I nactive PREDNISONE 20 MG TAB 1 po bid 3 days, then 1 po q day 3 days 201 05/03/07 PREDNISONE 20 MG TAB 874815 PREDNISONE Inactive LORTAB 7.5-500 MG/15ML ELIX 7.5 ml po q 4 hour prn cough LORTAB 7.5-500 MG/15ML ELIX 0205043 HYDROCODONE-ACETAMINOPHEN Inacti ve ACETAMINOPHEN-CODEINE #3 300-30 MG TABS 1 PO Q 4-6 HR PRN PAIN 2 ACETAMINOPHEN-CODEINE #3 300-30 MG TABS ACETAMIN OPHEN-CODEINE Inactive CHERATUSSIN AC 100-10 MG/5ML SYRP take 1 tsp po q4-6 hours prn c ough CHERATUSSIN AC 100-10 MG/5ML SYRP 985842 GUAIFENESIN-CO DEINE Inactive ACETAMINOPHEN-CODEINE #3 300-30 MG TABS 1 tablet po q 4-6hrs prn pain ACETAMINOPHEN-CODEINE #3 300-30 MG TABS ACETAMIN OPHEN-CODEINE Inactive HYDROCODONE-ACETAMINOPHEN 5-325 MG TABS 1 po q 6hr PRN cough 201 05/09/16 HYDROCODONE-ACETAMINOPHEN 5-325 MG TABS 857304 HYDROCODONE-ACETAMINOPHEN Inactive AVELOX 400 MG TABS 1 tab by mouth daily A VELOX 400 MG TABS 975920 MOXIFLOXACIN HCL Inactive CHERATUSSIN AC 100-10 MG/5ML SYRP 1 tsp by mouth every 4 hours as needed for cough CHERATUSSIN AC 100-10 MG/5ML SYRP 674700 GUAIFENESIN-CODEINE Inactive TERBINAFINE HCL 250 MG TABS 1 qDay TERBINAFINE HCL 250 MG TABS 711833 TERBINAFINE HCL Inactive CHERATUSSIN AC 100-10 MG/5ML SYRP 1 tsp by mouth every 4 hours as needed for cough CHERATUSSIN AC 100-10 MG/5ML SYRP 412090 GUAIFENESIN-CODEINE Inactive ACETAMINOPHEN-CODEINE #3 300-30 MG TABS 1 PO Q 4-6 HRS PRN PAIN ACETAMINOPHEN-CODEINE #3 300-30 MG TABS ACETAMINOPHEN-CODEIN E Inactive CHERATUSSIN AC 100-10 MG/5ML SYRP 1 tsp by mouth every 4 hours as needed for cough CHERATUSSIN AC 100-10 MG/5ML SYRP 116832 GUAIFENESIN-CODEINE Inactive AUGMENTIN 875-125 MG TAB 1 tab by mouth twice daily with food 20 12/03/31 AUGMENTIN 875-125 MG TAB 496713 AMOXICILLIN-POT CLAVULA EFE Inactive CHERATUSSIN AC 100-10 MG/5ML SYRP take one tsp po Q 6hours prn c ough CHERATUSSIN AC 100-10 MG/5ML SYRP 013673 GUAIFENESIN-CO DEINE Inactive PROPRANOLOL HCL 60 MG TABS 1 PO Q D P ROPRANOLOL HCL 60 MG TABS 668989 PROPRANOLOL HCL Inactive TOPAMAX 50 MG TABS take 1 tab po BID for migraines. 12/07/10 TOPAMAX 50 MG TABS 280271 TOPIRAMATE Inactive TOPAMAX 25 MG TABS 1 qHS x 1 week, then 1 BID x 1 week, then 1 qAM and 2 qHS x 1 week, then 2 BID (migraine prevention) TOPAMAX 2 5 MG TABS 359906 TOPIRAMATE Inactive LYRICA 75 MG CAPS TAKE 1 CAPSULE BY MOUTH TWICE DAILY LYRICA 75 MG CAPS PREGABALIN Inactive SYMBICORT 160-4.5 MCG/ACT AERO 2 puffs bid with rinse after 2011 SYMBICORT 160-4.5 MCG/ACT AERO BUDESONIDE-FORMOT SÁNCHEZ FUMARATE Inactive PROMETHAZINE-CODEINE 6.25-10 MG/5ML SYRP 1 tsp by mouth ever y 8 hours prn cough PROMETHAZINE-CODEINE 6.25-10 MG/5ML SYRP 341727 PROMETHAZINE-CODEINE Inactive CYMBALTA 30 MG CPEP 1 cap by mouth daily CYMBALTA 30 MG CPEP 650405 DULOXETINE HCL Inactive PREMARIN 0.625 MG TABS TAKE 1 TAB BY MOUTH DAILY 07/25 PREMARIN 0.625 MG TABS ESTROGENS CONJUGATED Inactive CHERATUSSIN AC 100-10 MG/5ML SYRP 1 tsp by mouth every 4 hours as needed for cough CHERATUSSIN AC 100-10 MG/5ML SYRP 911727 GUAIFENESIN-CODEINE Inactive PROMETHAZINE-CODEINE 6.25-10 MG/5ML SYRP 1 tsp by mout h every 6 hours if needed for cough PROMETHAZINE-CODEINE 6.25-10 MG/5ML SYRP 707091 PROMETHAZINE-CODEINE Inactive CHERATUSSIN AC 100-10 MG/5ML SYRP 1 tsp by mouth every 4 hours as needed for cough CHERATUSSIN AC 100-10 MG/5ML SYRP 074346 GUAIFENESIN-CODEINE Inactive FLUTICASONE PROPIONATE 50 MCG/ACT SUSP 1 to 2 sprays each no stril daily FLUTICASONE PROPIONATE 50 MCG/ACT SUSP 0784522 FLUTICASONE PROPIONATE Inactive PREDNISONE 20 MG ORAL TABS 3 tab PO qd x 2d, 2 tab PO qd x 2d, 1 tab PO qd x 2d, 1/2 tab PO qd x 2d PREDNISONE 20 MG ORAL TABS 608382 PREDNISONE Inactive LEVOFLOXACIN 500 MG ORAL TABS 1 tab PO daily x 10 days LEVOFLOXACIN 500 MG ORAL TABS 207095 LEVOFLOXACIN Inactive CYCLOBENZAPRINE HCL 10 MG TABS 1 tablet by mouth BID prn had cherelle n CYCLOBENZAPRINE HCL 10 MG TABS 145027 CYCLOBENZAPRINE H CL Inactive ZOCOR 40 MG TAB 1 tab by mouth daily ZOCOR 40 M G TAB 044395 SIMVASTATIN Inactive TUSSIONEX PENNKINETIC ER 10-8 MG/5ML [...] empty FLUTICASONE PROPIONATE 50 MCG/ACT SUSP 17 48892 FLUTICASONE PROPIONATE Inactive TUSSIONEX PENNKINETIC ER 10-8 [...] 201 04/09/17 ZITHROMAX Z-REYNA 250 MG TABS 818761 AZITHROMYCIN Inac tive CEFDINIR 300 MG CAPS [...] q days 2-5 ZITHROMAX 250 MG TAB 606418 AZITHROMYCIN Inactive CEFDINIR 300 MG CAPS by mouth twice a day CEFDINIR 300 MG CAPS 20020704 CEFDINIR Inactive PREDNISONE 20 MG TAB 2 tabs daily for 3 days, 1 t ab daily for 3 days, 1/2 tab daily for 2 days PREDNISONE 20 MG TAB 750898 PREDNISON E Inactive AVELOX 400 MG TABS 1 tab by mouth daily A VELOX 400 MG TABS 863680 MOXIFLOXACIN HCL Inactive AVELOX 400 MG TABS 1 tab by mouth daily A VELOX 400 MG TABS 769200 MOXIFLOXACIN HCL Inactive PREDNISONE 20 MG TAB Take 3 tabs daily for 3 days , 2 tabs daily for 3 days, 1 tab daily for 3 days, 1/2 tab daily for 3 days PREDNISONE 20 MG TAB 327603 PREDNISONE Inactive LEVAQUIN 500 MG TABS take one po QD LEVAQUIN 50 0 MG TABS 856163 LEVOFLOXACIN Inactive AZITHROMYCIN 250 MG TABS 2 po qd x 1 day, then 1 po qd x 4 days AZITHROMYCIN 250 MG TABS 992260 AZITHROMYCIN Inactiv e MEDROL (REYNA) 4 MG TABS 6 tabs on day 1, 5 tabs on d ay 2, 4 tabs on day 3, 3 tabs on day 4, 2 tabs on day 5, 1 tab on day 6 MEDROL (REYNA) 4 MG TABS 093742 METHYLPREDNISOLONE Inactive CHERATUSSIN AC 100-10 MG/5ML SYRP 5ml po q6hr PRN Cough CHERATUSSIN AC 100-10 MG/5ML SYRP 226097 GUAIFENESIN-CODEINE Inacti ve TRIAMCINOLONE ACETONIDE 0.1 % CREA apply three times daily prn r beatrice TRIAMCINOLONE ACETONIDE 0.1 % CREA 9396533 TRIAMCINOLONE ACETONIDE Inactive AZITHROMYCIN 250 MG TABS 2 po qd x 1 day, then 1 po qd x 4 days AZITHROMYCIN 250 MG TABS 586672 AZITHROMYCIN Inactiv e MEDROL (REYNA) 4 MG TABS 6 pills x 1 day, then 5 pill s x 1 day then 4 pills x 1 day, then 3 pills x 1 day, then 2 pills x 1 day, then 1 pill x 1 day, then stop MEDROL (REYNA) 4 MG TABS 880226 METHYLPREDNISOLONE Inactive AMOXICILLIN 500 MG CAP 1 tab by mouth 3 times daily x 10 days 20 13/03/08 AMOXICILLIN 500 MG CAP 059869 AMOXICILLIN Inactive AMOXICILLIN 500 MG CAP 1 tab by mouth 3 times daily x 10 days 20 14/04/28 AMOXICILLIN 500 MG CAP 406993 AMOXICILLIN Inactive ZITHROMAX 250 MG TAB 2 po today, then 1 po q days 2-5 ZITHROMAX 250 MG TAB 976712 AZITHROMYCIN Inactive AUGMENTIN 875-125 MG TAB 1 po BID x 10 days AUGMENTIN 875- 125 MG TAB 465269 AMOXICILLIN-POT CLAVULANATE Inactive ZITHROMAX Z-REYNA 250 MG TABS 2 today, then 1 daily for 4 days 201 08/07/20 ZITHROMAX Z-REYNA 250 MG TABS 974534 AZITHROMYCIN Inac tive ZITHROMAX 250 MG TAB 2 po today, then 1 po q days 2-5 ZITHROMAX 250 MG TAB 677290 AZITHROMYCIN Inactive ZITHROMAX Z-REYNA 250 MG TABS 2 today, then 1 daily for 4 days 201 08/30/03 ZITHROMAX Z-REYNA 250 MG TABS 100029 AZITHROMYCIN Inac tive CEFDINIR 300 MG CAPS 1 po BID x 10 days C EFDINIR 300 MG CAPS 807905 CEFDINIR Inactive ZITHROMAX 250 MG TAB 2 po today, then 1 po q days 2-5 ZITHROMAX 250 MG TAB 242105 AZITHROMYCIN Inactive LEVAQUIN 500 MG TAB 1 tablet by mouth daily LEVAQUIN 500 MG TAB 894770 LEVOFLOXACIN Inactive SINGULAIR 10 MG TABS 1 po qday for allergies 2 SINGULAIR 10 MG TABS 20010504 MONTELUKAST SODIUM Inactive AMOXICILLIN 500 MG CAPS 2 po BID x 10 days AMOXICILLIN 500 MG CAPS 210233 AMOXICILLIN Inactive PREDNISONE 20 MG TAB 2 tabs daily for 3 days, 1 t ab daily for 3 days, 1/2 tab daily for 2 days PREDNISONE 20 MG TAB 602707 PREDNISON E Inactive ZITHROMAX Z-REYNA 250 MG TABS 2 today, then 1 daily for 4 days 201 09/29/14 ZITHROMAX Z-REYNA 250 MG TABS 303763 AZITHROMYCIN Inac tive PREDNISONE 20 MG TAB 2 tabs daily for 3 days, 1 t ab daily for 3 days, 1/2 tab daily for 2 days PREDNISONE 20 MG TAB 139616 PREDNISON E Inactive ZITHROMAX 250 MG TAB 2 po today, then 1 po q days 2-5 ZITHROMAX 250 MG TAB 313125 AZITHROMYCIN Inactive Vital Signs Date Name Value [...] - Chem istry sodium, serum 132 mmol/L 403-128 6946/07/12 potassium, serum 2.7 mmol/L 3.5-5.2 chloride, serum 93 mmol/L 98-107 carbon dioxide, venous blood 30.8 mmol/L 21.0-32 .0 blood glucose 107 mg/dL 65-110 calcium, serum 9.3 mg/dL 8.5-10.1 urea nitrogen, blood 12 mg/dL 7-18 creatinine, serum 1.00 mg/dL 0.60-1.30 sodium, serum 142 mmol/L 501-641 8520/07/17 potassium, serum 4.2 mmol/L 3.5-5.2 chloride, serum 106 mmol/L 98-107 carbon dioxide, venous blood 29.9 mmol/L 21.0-32 .0 blood glucose 108 mg/dL 65-110 calcium, serum 9.1 mg/dL 8.5-10.1 urea nitrogen, blood 11 mg/dL 7-18 creatinine, serum 0.81 mg/dL 0.60-1.30 Lab Report: Rapid Strep - Lab Microbial identification kit, rapid strep method Negative Negative Encounters Code Encounter Date Provider Facility CPT-61859 Level 3 Est. Patient 12:17:50 CDT Hugo Restrepo MD [facility] CPT-12652 Level 3 Est. Patient 13:42:38 CDT Italo [facility] CPT-15827 Level 3 Est. Patient 13:23:51 CDT Diya cobian [facility] CPT-86202 Level 3 Est. Patient 14:22:19 TITLE CAMERA OPERATOR Diya cobian [facility] CPT-22513 Level 3 Est. Patient 10:11:46 CDT Carlton rich MD [facility] CPT-20755 Level 3 Est. Patient 17:29:43 CDT [facility] CPT-19156 Level 3 Est. Patient 11:58:06 CDT [facility] CPT-96321 Level 4 Est. Patient 14:36:51 CDT Carlton rich MD [facility] CPT-12389 Level 3 Est. Patient 18:16:00 TITLE CAMERA OPERATOR Blaine Freeman [facility]-94001 Level 3 Est. Patient 09:45:49 TITLE CAMERA OPERATOR Carlton rich MD [facility]-00495 Level 3 Est. Patient 13:19:20 CDT Carlton rich MD [facility]-83165 Level 3 Est. Patient 13:06:43 CDT Ridge tam DO [facility]-36341 Level 3 Est. Patient 10:03:07 CDT Perez Mora MD [facility]-35876 Level 3 Est. Patient 19:50:35 TITLE CAMERA OPERATOR Carlton rich MD [facility]-89217 Level 4 Est. Patient 18:05:01 TITLE CAMERA OPERATOR Carlton rich MD [facility] CPT-59497 Level 3 Est. Patient 10:45:55 TITLE CAMERA OPERATOR Hugo Restrepo MD [facility]-50296 Level 3 Est. Patient 14:12:49 CDT Griffin lincoln [facility]-12257 Level 3 Est. Patient 17:37:24 CDT Carlton rich MD [facility]-88700 Level 3 Est. Patient 16:51:54 CDT Carlton rich MD [facility]-22306 Level 3 Est. Patient 12:18:11 CDT Hugo Restrepo MD [facility]-15121 Level 3 Est. Patient 11:30:25 CDT Marcy crisostomo MD PhD [facility]-71810 Level 3 Est. Patient 12:00:47 TITLE CAMERA OPERATOR Carlton rich MD [facility] CPT-11667 Level 3 Est. Patient 16:31:06 TITLE CAMERA OPERATOR Carlton irch MD [facility] CPT-70556 Level 3 Est. Patient 16:23:24 TITLE CAMERA OPERATOR [place] [facility] CPT-13348 Level 3 Est. Patient 12:34:12 CDT Carlton rich MD [facility] CPT-60284 Level 2 Est. Patient 15:43:33 CDT Robi armstrong MD [facility] CPT-64536 Level 4 Est. Patient 14:04:44 CDT Carlton rich MD [facility] CPT-29034 Level 3 Est. Patient 05:47:59 CDT [place] [facility] CPT-33218 Level 3 Est. Patient 13:12:53 TITLE CAMERA OPERATOR Carlton rich MD [facility] CPT-16125 Level 3 Est. Patient 14:26:53 CDT Hugo [...] CPT-J1100 Decadron 6mg (Dexamethasone) 14:32:13 CDT 2 CPT-70808 Hip bilat min 2V w AP pelvis 13:16:20 CDT 2 CPT-66896 Pelvis only 13:07:33 CDT CPT-24849 Spec Collection and Handling Fee 11:25:12 C DT CPT-61756 Fluzone Quadrivalent Intramuscular Suspe nsion 0.5 ML 14:31:55 CDT CPT-29151 Abx/Therapy Injection 13:28:47 TITLE CAMERA OPERATOR CPT-J2930 Solu Medrol 125 mg (Methyl Prednisolone Sodium Succinate) 12:00:47 TITLE CAMERA OPERATOR CPT-74480 Venipuncture Draw Fee 11:33:31 CDT CPT-04426 EKG Trac and Interp 11:21:09 CDT CPT-22613 Chest 2V Frontal and Lat 11:21:09 CDT 12/15 CPT-39462 Venipuncture Draw Fee 08:02:34 CDT CPT-08122 Chest 2V Frontal and Lat 05:47:59 CDT 06/05
--- OUTSIDE RECORDS SUMMARY | 2019-10-08 08:36 | XMS REPORT | Clinical Summary ---
[...] SINUSITIS, ACUTE ICD-461.9 Inactive Hugo dominguez MD MAXILLARY SINUSITIS ICD-473.0 Inactive Marcy De La Rosa MD PhD Medication List Medication Instructions Start Date Stop Date Generic Name NDC Status Provider Patient Instruction XANAX 0.5 MG TABS one tablet by mouth daily prn anxiety ALPRAZOLAM [id number] Active Carlton Hu MD Active CYMBALTA 30 MG CPEP 1 cap by mouth daily for depression DULOXETINE HCL 59374200613 Active Carlton Hu MD Active CEFDINIR 300 MG CAPS 1 po BID x 10 days CEFDINI R 18104696961 No Longer Active Carlton Hu MD Active ZOCOR 40 MG TAB 1 tab by mouth daily SIMVASTATI N 46691171881 No Longer Active Carlton Hu MD Active CYCLOBENZAPRINE HCL 10 MG TABS 1 tablet by mouth BID prn had cherelle n CYCLOBENZAPRINE HCL 03971504280 No Longer Active Carlton Hu MD Active LEVOFLOXACIN 500 MG ORAL TABS 1 tab PO daily x 10 days LEVOFLOXACIN 86755392988 No Longer Active Carlton Hu MD Acti ve PREDNISONE 20 MG ORAL TABS 3 tab PO qd x 2d, 2 tab PO qd x 2d, 1 tab PO qd x 2d, 1/2 tab PO qd x 2d PREDNISONE 50281772680 No Longer Active Carlton Hu MD Active TUSSIONEX PENNKINETIC ER 10-8 MG/5ML ORAL LQCR 5 mL PO q 12 hrs PRN cough HYDROCOD POLST-CHLORPHEN POLST 64726639336 Active Carlton Hu MD Active FLUTICASONE PROPIONATE 50 MCG/ACT SUSP 1 to 2 sprays each no stril daily FLUTICASONE PROPIONATE 99164533375 No Longer Active T jaz HERNANDEZ Active CHERATUSSIN AC 100-10 MG/5ML SYRP 1 tsp by mouth every 4 hours as needed for cough GUAIFENESIN-CODEINE 11419594490 No Longer Activ e Blaine HERNANDEZ Active PROMETHAZINE-CODEINE 6.25-10 MG/5ML SYRP 1 tsp by mout h every 6 hours if needed for cough PROMETHAZINE-CODEINE 20665821372 No Long er Active Blaine HERNANDEZ Active CHERATUSSIN AC 100-10 MG/5ML SYRP 1 tsp by mouth every 4 hours as needed for cough GUAIFENESIN-CODEINE 23569864001 No Longer Activ Jorge Luis HERNANDEZ Active ZITHROMAX Z-REYNA 250 MG TABS 2 today, then 1 daily for 4 days 201 08/30/03 AZITHROMYCIN 66245454700 No Longer Active Columba Raida Act nael ZITHROMAX 250 MG TAB 2 po today, then 1 po q days 2-5 AZITHROMYCIN 83712604913 No Longer Active Carlton Hu MD Acti ve ZITHROMAX Z-REYNA 250 MG TABS 2 today, then 1 daily for 4 days 201 08/07/20 AZITHROMYCIN 76117910552 No Longer Active Columba Raida Act nael AUGMENTIN 875-125 MG TAB 1 po BID x 10 days AMOXICILLIN- POT CLAVULANATE 96235948525 No Longer Active Diya De Guzman APRN Active ZITHROMAX 250 MG TAB 2 po today, then 1 po q days 2-5 AZITHROMYCIN 87720839638 No Longer Active Carlton Hu MD Acti ve TRAMADOL HCL 50 MG TABS 1 po tid with ES Tylenol TRAMADOL HCL 23049097414 Active Carlton Hu MD Active PREMARIN 0.625 MG TABS TAKE 1 TAB BY MOUTH DAILY 07/25 ESTROGENS CONJUGATED 41928628852 No Longer Active Ridge Bess DO Active CYMBALTA 30 MG CPEP 1 cap by mouth daily DULOXE SNEHA HCL 86237247493 No Longer Active Ridge Bess DO Active AMOXICILLIN 500 MG CAP 1 tab by mouth 3 times daily x 10 days 20 14/04/28 AMOXICILLIN 34908364276 No Longer Active Carlton Hu MD Active AMOXICILLIN 500 MG CAP 1 tab by mouth 3 times daily x 10 days 20 13/03/08 AMOXICILLIN 93412026292 No Longer Active Carlton Hu MD Active PROMETHAZINE-CODEINE 6.25-10 MG/5ML SYRP 1 tsp by mouth ever y 8 hours prn cough PROMETHAZINE-CODEINE 71980768061 No Longer Active Robert Hu MD Active MEDROL (REYNA) 4 MG TABS 6 pills x 1 day, then 5 pill s x 1 day then 4 pills x 1 day, then 3 pills x 1 day, then 2 pills x 1 day, then 1 pill x 1 day, then stop METHYLPREDNISOLONE 04549437634 No Longer Active Parris Mora MD Active AZITHROMYCIN 250 MG TABS 2 po qd x 1 day, then 1 po qd x 4 days AZITHROMYCIN 93926438101 No Longer Active Perez Mora MD Active SYMBICORT 160-4.5 MCG/ACT AERO 2 puffs bid with rinse after 2011 BUDESONIDE-FORMOTEROL FUMARATE 43515914074 No Longer Active Perez Mora MD Active LYRICA 75 MG CAPS TAKE 1 CAPSULE BY MOUTH TWICE DAILY 2013 PREGABALIN 32679937897 No Longer Active Carlton Hu MD Active LYRICA 100 MG CAPS Take 1 tab po BID for fibromyalgia PREGABALIN 97269036391 Active Elise Whitmore APRN Active TOPAMAX 25 MG TABS 1 qHS x 1 week, then 1 BID x 1 week, then 1 qAM and 2 qHS x 1 week, then 2 BID (migraine prevention) TOPIRAMAT E 12180094031 No Longer Active Jerica Farnaz RMA Active TOPAMAX 50 MG TABS take 1 tab po BID for migraines. 12/07/10 TOPIRAMATE 46940000478 No Longer Active Jerica Gomerissaer RMA Ac tive TOPAMAX 100 MG TABS Take 1 tablet po bid TOPIRAMATE 4999 4065078 Active Carlton Hu MD Active TRIAMCINOLONE ACETONIDE 0.1 % CREA apply three times daily prn r beatrice TRIAMCINOLONE ACETONIDE 65794693080 No Longer Active Carlton Hu MD Active PAXIL 40 MG TAB take 1 tab po qday for depression PAROXETINE HCL 05268601919 Active Elise Haim JUICE TESTER Active CHERATUSSIN AC 100-10 MG/5ML SYRP 5ml po q6hr PRN Cough GUAIFENESIN-CODEINE 08623101392 No Longer Active Carlton Hu MD Active MEDROL (REYNA) 4 MG TABS 6 tabs on day 1, 5 tabs on d ay 2, 4 tabs on day 3, 3 tabs on day 4, 2 tabs on day 5, 1 tab on day 6 METHYLPREDNISOLONE 89845436351 No Longer Active Perez Mora MD Active AZITHROMYCIN 250 MG TABS 2 po qd x 1 day, then 1 po qd x 4 days AZITHROMYCIN 22915910108 No Longer Active Perez Mora MD Active PROPRANOLOL HCL 60 MG TABS 1 PO Q D PROPRANOL OL HCL 57240897869 No Longer Active Perez Mora MD Active CHERATUSSIN AC 100-10 MG/5ML SYRP take one tsp po Q 6hours prn c ough GUAIFENESIN-CODEINE 05156540147 No Longer Active Perez Means Active AUGMENTIN 875-125 MG TAB 1 tab by mouth twice daily with food 20 12/03/31 AMOXICILLIN-POT CLAVULANATE 61230204523 No Longer Active Chanel Mora MD Active CHERATUSSIN AC 100-10 MG/5ML SYRP 1 tsp by mouth every 4 hours as needed for cough GUAIFENESIN-CODEINE 03847670695 No Longer Activ e Hugo Restrepo MD Active ACETAMINOPHEN-CODEINE #3 300-30 MG TABS 1 PO Q 4-6 HRS PRN PAIN ACETAMINOPHEN-CODEINE 07543392274 No Longer Active Hugo Restrepo MD Active LEVAQUIN 500 MG TABS take one po QD LEVOFLOXACI N 07362269432 No Longer Active Griffin HERNANDEZ Active PREDNISONE 20 MG TAB Take 3 tabs daily for 3 days , 2 tabs daily for 3 days, 1 tab daily for 3 days, 1/2 tab daily for 3 days P REDNISONE 61098871241 No Longer Active Carlton Hu MD Active AVELOX 400 MG TABS 1 tab by mouth daily MOXIFLO XACIN HCL 93783782847 No Longer Active Carlton Hu MD Active CHERATUSSIN AC 100-10 MG/5ML SYRP 1 tsp by mouth every 4 hours as needed for cough GUAIFENESIN-CODEINE 31516554530 No Longer Activ e Hugo Restrepo MD Active AVELOX 400 MG TABS 1 tab by mouth daily MOXIFLO XACIN HCL 63894994531 No Longer Active Marcy De La Rosa MD PhD Active TERBINAFINE HCL 250 MG TABS 1 qDay TERBINAF INE HCL 36331852050 No Longer Active Marcy De La Rosa MD PhD Active CHERATUSSIN AC 100-10 MG/5ML SYRP 1 tsp by mouth every 4 hours as needed for cough GUAIFENESIN-CODEINE 54324852474 No Longer Activ e Maryc De La Rosa MD PhD Active AVELOX 400 MG TABS 1 tab by mouth daily MOXIFLO XACIN HCL 82925723582 No Longer Active Marcy De La Rosa MD PhD Active HYDROCODONE-ACETAMINOPHEN 5-325 MG TABS 1 po q 6hr PRN cough 201 05/09/16 HYDROCODONE-ACETAMINOPHEN 36039423530 No Longer Active Marcy De La Rosa MD PhD Active PREDNISONE 20 MG TAB 2 tabs daily for 3 days, 1 t ab daily for 3 days, 1/2 tab daily for 2 days PREDNISONE 40580512215 No Longer Active Carlton Hu MD Active CEFDINIR 300 MG CAPS by mouth twice a day CEFDI ODILIA 76002631573 No Longer Active Carlton Hu MD Active HYDROCHLOROTHIAZIDE 25 MG TABS 1 TAB PO DAILY H YDROCHLOROTHIAZIDE 98623306889 Active Carlton Hu MD Active ACETAMINOPHEN-CODEINE #3 300-30 MG TABS 1 tablet po q 4-6hrs prn pain ACETAMINOPHEN-CODEINE 13478968024 No Longer Active Ridge Bess DO Active ZITHROMAX 250 MG TAB 2 po today, then 1 po q days 2-5 AZITHROMYCIN 00600710055 No Longer Active Carlton Hu MD Acti ve CHERATUSSIN AC 100-10 MG/5ML SYRP take 1 tsp po q4-6 hours prn c ough GUAIFENESIN-CODEINE 13432266851 No Longer Active Carlton Hu MD Active ACETAMINOPHEN-CODEINE #3 300-30 MG TABS 1 PO Q 4-6 HR PRN PAIN 2 ACETAMINOPHEN-CODEINE 93780821934 No Longer Active Carlton rich MD Active LORTAB 7.5-500 MG/15ML ELIX 7.5 ml po q 4 hour prn cough HYDROCODONE-ACETAMINOPHEN 26320107354 No Longer Active Carlton Hu MD Active PREDNISONE 20 MG TAB 1 po bid 3 days, then 1 po q day 3 days 201 05/03/07 PREDNISONE 73205199583 No Longer Active Carlton Hu MD Active ELMIRON 100 MG CAPS 2 tablets in the am and 1 tablet at hs PENTOSAN POLYSULFATE SODIUM 27318989421 Active Carlton Hu MD Ac tive CEFDINIR 300 MG CAPS by mouth twice a day CEFDI ODILIA 20803270553 No Longer Active Carlton Hu MD Active CEFDINIR 300 MG CAPS by mouth twice a day CEFDI ODILIA 21221408950 No Longer Active Carlton Hu MD Active CEFDINIR 300 MG CAPS by mouth twice a day CEFDI ODILIA 14177848566 No Longer Active Carlton Hu MD Active TESSALON PERLES 100 MG CAP 1 tablet by mouth 3 times daily a s needed for cough BENZONATATE 13284390665 No Longer Active Carlton bustamante MD Active CEFDINIR 300 MG CAPS by mouth twice a day CEFDI ODILIA 60602985337 No Longer Active Carlton Hu MD Active ZITHROMAX Z-REYNA 250 MG TABS 2 today, then 1 daily for 4 days 201 04/09/17 AZITHROMYCIN 28766785849 No Longer Active Hugo Restrepo MD Active TESSALON PERLES 100 MG CAP 1 tablet by mouth 3 times daily a s needed for cough TESSALON PERLES 100 MG CAP 400003 BENZONATATE I nactive PREDNISONE 20 MG TAB 1 po bid 3 days, then 1 po q day 3 days 201 05/03/07 PREDNISONE 20 MG TAB 884614 PREDNISONE Inactive LORTAB 7.5-500 MG/15ML ELIX 7.5 ml po q 4 hour prn cough LORTAB 7.5-500 MG/15ML ELIX HYDROCODONE-ACETAMINOPHEN Inacti ve ACETAMINOPHEN-CODEINE #3 300-30 MG TABS 1 PO Q 4-6 HR PRN PAIN 2 ACETAMINOPHEN-CODEINE #3 300-30 MG TABS 358512 ACETAMIN OPHEN-CODEINE Inactive CHERATUSSIN AC 100-10 MG/5ML SYRP take 1 tsp po q4-6 hours prn c ough CHERATUSSIN AC 100-10 MG/5ML SYRP 278638 GUAIFENESIN-CO DEINE Inactive ACETAMINOPHEN-CODEINE #3 300-30 MG TABS 1 tablet po q 4-6hrs prn pain ACETAMINOPHEN-CODEINE #3 300-30 MG TABS 237182 ACETAMIN OPHEN-CODEINE Inactive HYDROCODONE-ACETAMINOPHEN 5-325 MG TABS 1 po q 6hr PRN cough 201 05/09/16 HYDROCODONE-ACETAMINOPHEN 5-325 MG TABS 218229 HYDROCODONE-ACETAMINOPHEN Inactive AVELOX 400 MG TABS 1 tab by mouth daily A VELOX 400 MG TABS 859056 MOXIFLOXACIN HCL Inactive CHERATUSSIN AC 100-10 MG/5ML SYRP 1 tsp by mouth every 4 hours as needed for cough CHERATUSSIN AC 100-10 MG/5ML SYRP 880786 GUAIFENESIN-CODEINE Inactive TERBINAFINE HCL 250 MG TABS 1 qDay TERBINAFINE HCL 250 MG TABS 972523 TERBINAFINE HCL Inactive CHERATUSSIN AC 100-10 MG/5ML SYRP 1 tsp by mouth every 4 hours as needed for cough CHERATUSSIN AC 100-10 MG/5ML SYRP 047523 GUAIFENESIN-CODEINE Inactive ACETAMINOPHEN-CODEINE #3 300-30 MG TABS 1 PO Q 4-6 HRS PRN PAIN ACETAMINOPHEN-CODEINE #3 300-30 MG TABS 698145 ACETAMINOPHEN-CODEIN E Inactive CHERATUSSIN AC 100-10 MG/5ML SYRP 1 tsp by mouth every 4 hours as needed for cough CHERATUSSIN AC 100-10 MG/5ML SYRP 524230 GUAIFENESIN-CODEINE Inactive AUGMENTIN 875-125 MG TAB 1 tab by mouth twice daily with food 20 12/03/31 AUGMENTIN 875-125 MG TAB 826563 AMOXICILLIN-POT CLAVULA EFE Inactive CHERATUSSIN AC 100-10 MG/5ML SYRP take one tsp po Q 6hours prn c ough CHERATUSSIN AC 100-10 MG/5ML SYRP 682280 GUAIFENESIN-CO DEINE Inactive PROPRANOLOL HCL 60 MG TABS 1 PO Q D P ROPRANOLOL HCL 60 MG TABS 115280 PROPRANOLOL HCL Inactive TOPAMAX 50 MG TABS take 1 tab po BID for migraines. 12/07/10 TOPAMAX 50 MG TABS 605555 TOPIRAMATE Inactive TOPAMAX 25 MG TABS 1 qHS x 1 week, then 1 BID x 1 week, then 1 qAM and 2 qHS x 1 week, then 2 BID (migraine prevention) TOPAMAX 2 5 MG TABS 966343 TOPIRAMATE Inactive LYRICA 75 MG CAPS TAKE 1 CAPSULE BY MOUTH TWICE DAILY LYRICA 75 MG CAPS PREGABALIN Inactive SYMBICORT 160-4.5 MCG/ACT AERO 2 puffs bid with rinse after 2011 SYMBICORT 160-4.5 MCG/ACT AERO BUDESONIDE-FORMOT SÁNCHEZ FUMARATE Inactive PROMETHAZINE-CODEINE 6.25-10 MG/5ML SYRP 1 tsp by mouth ever y 8 hours prn cough PROMETHAZINE-CODEINE 6.25-10 MG/5ML SYRP 985136 PROMETHAZINE-CODEINE Inactive CYMBALTA 30 MG CPEP 1 cap by mouth daily CYMBALTA 30 MG CPEP 471832 DULOXETINE HCL Inactive PREMARIN 0.625 MG TABS TAKE 1 TAB BY MOUTH DAILY 07/25 PREMARIN 0.625 MG TABS ESTROGENS CONJUGATED Inactive CHERATUSSIN AC 100-10 MG/5ML SYRP 1 tsp by mouth every 4 hours as needed for cough CHERATUSSIN AC 100-10 MG/5ML SYRP 924279 GUAIFENESIN-CODEINE Inactive PROMETHAZINE-CODEINE 6.25-10 MG/5ML SYRP 1 tsp by mout h every 6 hours if needed for cough PROMETHAZINE-CODEINE 6.25-10 MG/5ML SYRP 862635 PROMETHAZINE-CODEINE Inactive CHERATUSSIN AC 100-10 MG/5ML SYRP 1 tsp by mouth every 4 hours as needed for cough CHERATUSSIN AC 100-10 MG/5ML SYRP 052857 GUAIFENESIN-CODEINE Inactive FLUTICASONE PROPIONATE 50 MCG/ACT SUSP 1 to 2 sprays each no stril daily FLUTICASONE PROPIONATE 50 MCG/ACT SUSP 347863 FLUTICASONE PROPIONATE Inactive PREDNISONE 20 MG ORAL TABS 3 tab PO qd x 2d, 2 tab PO qd x 2d, 1 tab PO qd x 2d, 1/2 tab PO qd x 2d PREDNISONE 20 MG ORAL TABS 469775 PREDNISONE Inactive LEVOFLOXACIN 500 MG ORAL TABS 1 tab PO daily x 10 days LEVOFLOXACIN 500 MG ORAL TABS 694102 LEVOFLOXACIN Inactive CYCLOBENZAPRINE HCL 10 MG TABS 1 tablet by mouth BID prn had cherelle n CYCLOBENZAPRINE HCL 10 MG TABS 663795 CYCLOBENZAPRINE H CL Inactive ZOCOR 40 MG TAB 1 tab by mouth daily ZOCOR 40 M G TAB 891377 SIMVASTATIN Inactive ZITHROMAX Z-REYNA 250 MG TABS 2 today, then 1 daily for 4 days 201 04/09/17 ZITHROMAX Z-REYNA 250 MG TABS 4276509 AZITHROMYCIN Inac tive CEFDINIR 300 MG CAPS by mouth twice a day CEFDINIR 300 MG CAPS 20020704 CEFDINIR Inactive CEFDINIR 300 MG CAPS by mouth twice a day CEFDINIR 300 MG CAPS 037022 CEFDINIR Inactive CEFDINIR 300 MG CAPS by mouth twice a day CEFDINIR 300 MG CAPS 081185 CEFDINIR Inactive CEFDINIR 300 MG CAPS by mouth twice a day CEFDINIR 300 MG CAPS 20020704 CEFDINIR Inactive ZITHROMAX 250 MG TAB 2 po today, then 1 po q days 2-5 ZITHROMAX 250 MG TAB 0030701 AZITHROMYCIN Inactive CEFDINIR 300 MG CAPS by mouth twice a day CEFDINIR 300 MG CAPS 20020704 CEFDINIR Inactive PREDNISONE 20 MG TAB 2 tabs daily for 3 days, 1 t ab daily for 3 days, 1/2 tab daily for 2 days PREDNISONE 20 MG TAB 252122 PREDNISON E Inactive AVELOX 400 MG TABS 1 tab by mouth daily A VELOX 400 MG TABS 759191 MOXIFLOXACIN HCL Inactive AVELOX 400 MG TABS 1 tab by mouth daily A VELOX 400 MG TABS 864846 MOXIFLOXACIN HCL Inactive PREDNISONE 20 MG TAB Take 3 tabs daily for 3 days , 2 tabs daily for 3 days, 1 tab daily for 3 days, 1/2 tab daily for 3 days PREDNISONE 20 MG TAB 601853 PREDNISONE Inactive LEVAQUIN 500 MG TABS take one po QD LEVAQUIN 50 0 MG TABS 557243 LEVOFLOXACIN Inactive AZITHROMYCIN 250 MG TABS 2 po qd x 1 day, then 1 po qd x 4 days AZITHROMYCIN 250 MG TABS 9636519 AZITHROMYCIN Inactiv e MEDROL (REYNA) 4 MG TABS 6 tabs on day 1, 5 tabs on d ay 2, 4 tabs on day 3, 3 tabs on day 4, 2 tabs on day 5, 1 tab on day 6 MEDROL (REYNA) 4 MG TABS 845709 METHYLPREDNISOLONE Inactive CHERATUSSIN AC 100-10 MG/5ML SYRP 5ml po q6hr PRN Cough CHERATUSSIN AC 100-10 MG/5ML SYRP 857085 GUAIFENESIN-CODEINE Inacti ve TRIAMCINOLONE ACETONIDE 0.1 % CREA apply three times daily prn r beatrice TRIAMCINOLONE ACETONIDE 0.1 % CREA 6448584 TRIAMCINOLONE ACETONIDE Inactive AZITHROMYCIN 250 MG TABS 2 po qd x 1 day, then 1 po qd x 4 days AZITHROMYCIN 250 MG TABS 1656967 AZITHROMYCIN Inactiv e MEDROL (REYNA) 4 MG TABS 6 pills x 1 day, then 5 pill s x 1 day then 4 pills x 1 day, then 3 pills x 1 day, then 2 pills x 1 day, then 1 pill x 1 day, then stop MEDROL (REYNA) 4 MG TABS 218285 METHYLPREDNISOLONE Inactive AMOXICILLIN 500 MG CAP 1 tab by mouth 3 times daily x 10 days 20 13/03/08 AMOXICILLIN 500 MG CAP 474832 AMOXICILLIN Inactive AMOXICILLIN 500 MG CAP 1 tab by mouth 3 times daily x 10 days 20 14/04/28 AMOXICILLIN 500 MG CAP 437346 AMOXICILLIN Inactive ZITHROMAX 250 MG TAB 2 po today, then 1 po q days 2-5 ZITHROMAX 250 MG TAB 0009946 AZITHROMYCIN Inactive AUGMENTIN 875-125 MG TAB 1 po BID x 10 days AUGMENTIN 875- 125 MG TAB 668476 AMOXICILLIN-POT CLAVULANATE Inactive ZITHROMAX Z-REYNA 250 MG TABS 2 today, then 1 daily for 4 days 201 08/07/20 ZITHROMAX Z-REYNA 250 MG TABS 4926979 AZITHROMYCIN Inac tive ZITHROMAX 250 MG TAB 2 po today, then 1 po q days 2-5 ZITHROMAX 250 MG TAB 7150750 AZITHROMYCIN Inactive ZITHROMAX Z-REYNA 250 MG TABS 2 today, then 1 daily for 4 days 201 08/30/03 ZITHROMAX Z-REYNA 250 MG TABS 4753348 AZITHROMYCIN Inac tive CEFDINIR 300 MG CAPS 1 po BID x 10 days C EFDINIR 300 MG CAPS 772606 CEFDINIR Inactive Vital Signs Date Name Value [...] Measured Encounters Code Encounter Date Provider Facility CPT-71132 Level 4 Est. Patient 14:36:51 CDT Carlton rich MD [facility] CPT-57476 Level 3 Est. Patient 18:16:00 DATA PROCESSING SYSTEMS CONSULTANT Blaine HERNANDEZ [facility] CPT-83302 Level 3 Est. Patient 09:45:49 DATA PROCESSING SYSTEMS CONSULTANT Carlton rich MD [facility]-79114 Level 3 Est. Patient 13:19:20 CDT Carlton rich MD [facility]-52394 Level 3 Est. Patient 13:06:43 CDT Ridge tam [facility] CPT-35127 Level 3 Est. Patient 10:03:07 CDT Perez Mora MD [facility]-74125 Level 3 Est. Patient 19:50:35 DATA PROCESSING SYSTEMS CONSULTANT Carlton rich MD [facility]-56075 Level 4 Est. Patient 18:05:01 DATA PROCESSING SYSTEMS CONSULTANT Carlton rich MD [facility]-47296 Level 3 Est. Patient 10:45:55 DATA PROCESSING SYSTEMS CONSULTANT Hugo Restrepo MD [facility]-25199 Level 3 Est. Patient 14:12:49 CDT Griffin HERNANDEZ [facility] CPT-78249 Level 3 Est. Patient 17:37:24 CDT Carlton rich MD [facility]-14710 Level 3 Est. Patient 16:51:54 CDT Carlton rich MD [facility]-37416 Level 3 Est. Patient 12:18:11 CDT Hugo Restrepo MD [facility]-18912 Level 3 Est. Patient 11:30:25 CDT Marcy crisostomo MD PhD [facility]-71910 Level 3 Est. Patient 12:00:47 DATA PROCESSING SYSTEMS CONSULTANT Carlton rich MD [facility]-32350 Level 3 Est. Patient 16:31:06 DATA PROCESSING SYSTEMS CONSULTANT Carlton rich MD [facility]-91189 Level 3 Est. Patient 16:23:24 DATA PROCESSING SYSTEMS CONSULTANT Ridge tam [facility] CPT-01097 Level 3 Est. Patient 12:34:12 CDT Carlton rich MD [facility] CPT-09350 Level 2 Est. Patient 15:43:33 CDT Robi armstrong MD [facility] CPT-57589 Level 4 Est. Patient 14:04:44 CDT Carlton rich MD [facility] CPT-97035 Level 3 Est. Patient 05:47:59 CDT Ridge tam [facility] CPT-71054 Level 3 Est. Patient 13:12:53 DATA PROCESSING SYSTEMS CONSULTANT Carlton rich MD [facility] CPT-67870 Level 3 Est. Patient 14:26:53 CDT Hugo Restrepo MD [facility] Procedures Code Procedure Name Date Entry Date Standard Desc ription CPT-15100 Hip bilat min 2V w AP pelvis 13:16:20 CDT 2 CPT-10669 Pelvis only 13:07:33 CDT CPT-85560 Spec Collection and Handling Fee 11:25:12 C DT CPT-16856 Fluzone Quadrivalent Intramuscular Suspe nsion 0.5 ML 14:31:55 CDT CPT-91300 Abx/Therapy Injection 13:28:47 DATA PROCESSING SYSTEMS CONSULTANT CPT-J2930 Solu Medrol 125 mg (Methyl Prednisolone Sodium Succinate) 12:00:47 DATA PROCESSING SYSTEMS CONSULTANT CPT-40310 Venipuncture Draw Fee 11:33:31 CDT CPT-30697 EKG Trac and Interp 11:21:09 CDT CPT-68703 Chest 2V Frontal and Lat 11:21:09 CDT 12/15 CPT-59351 Venipuncture Draw Fee 08:02:34 CDT CPT-01986 Chest 2V Frontal and Lat 05:47:59 CDT 06/05
--- OUTSIDE RECORDS SUMMARY | 2019-10-08 08:36 | XMS REPORT | Clinical Summary ---
Author Author Caitlin, Juliana Martinez Organization [facility] Address Unknown Phone Unavailable Allergies, Adverse [...] sites Sinusitis 473.9 Active Diya De Guzman POULTRY HUSBANDMAN Unspecified sinusitis (chronic) Bronchitis-Acute 466.0 Active Carlton Hu MD Acute bronchitis URI - acute 465.9 Active Elise Whitmore POULTRY HUSBANDMAN Acute upper respiratory infections of unspecified site [...] 1 tablet by mouth daily LEV OFLOXACIN 56157651895 No Longer Active Carlton Hu MD Active FLUTICASONE PROPIONATE 50 MCG/ACT SUSP 2 sprays each n ostril daily for 2 weeks, then 1 spray each nostril daily. FLUTICASONE PRO PIONATE 65373496734 Active Elise Whitmore APRN Active ZITHROMAX 250 MG TAB 2 po today, then 1 po q days 2-5 AZITHROMYCIN 71086202059 No Longer Active Elise Whitmore APRN Acti ve XANAX 0.5 MG TABS one tablet by mouth daily prn anxiety ALPRAZOLAM 79372175725 Active Carlton Hu MD Active CYMBALTA 30 MG CPEP 1 cap by mouth daily for depression DULOXETINE HCL 84268270039 Active Carlton Hu MD Active CEFDINIR 300 MG CAPS 1 po BID x 10 days CEFDINI R 42806378847 No Longer Active Carlton Hu MD Active ZOCOR 40 MG TAB 1 tab by mouth daily SIMVASTATI N 94032385214 No Longer Active Carlton Hu MD Active CYCLOBENZAPRINE HCL 10 MG TABS 1 tablet by mouth BID prn had cherelle n CYCLOBENZAPRINE HCL 21827496354 No Longer Active Carlton Hu MD Active LEVOFLOXACIN 500 MG ORAL TABS 1 tab PO daily x 10 days LEVOFLOXACIN 69826977423 No Longer Active Cralton Hu MD Acti ve PREDNISONE 20 MG ORAL TABS 3 tab PO qd x 2d, 2 tab PO qd x 2d, 1 tab PO qd x 2d, 1/2 tab PO qd x 2d PREDNISONE 28821290721 No Longer Active Carlton Hu MD Active TUSSIONEX PENNKINETIC ER 10-8 MG/5ML ORAL LQCR 5 mL PO q 12 hrs PRN cough HYDROCOD POLST-CHLORPHEN POLST 45965289151 Active Zo meeks Active FLUTICASONE PROPIONATE 50 MCG/ACT SUSP 1 to 2 sprays each no stril daily FLUTICASONE PROPIONATE 63848667231 No Longer Active T jaz HERNANDEZ Active CHERATUSSIN AC 100-10 MG/5ML SYRP 1 tsp by mouth every 4 hours as needed for cough GUAIFENESIN-CODEINE 58057145592 No Longer Activ e Blaine HERNANDEZ Active PROMETHAZINE-CODEINE 6.25-10 MG/5ML SYRP 1 tsp by mout h every 6 hours if needed for cough PROMETHAZINE-CODEINE 44262733715 No Long er Active Blaine HERNANDEZ Active CHERATUSSIN AC 100-10 MG/5ML SYRP 1 tsp by mouth every 4 hours as needed for cough GUAIFENESIN-CODEINE 77382369780 No Longer Activ e Blaine HERNANDEZ Active ZITHROMAX Z-REYNA 250 MG TABS 2 today, then 1 daily for 4 days 201 08/30/03 AZITHROMYCIN 13878524086 No Longer Active Columba Raida Act nael ZITHROMAX 250 MG TAB 2 po today, then 1 po q days 2-5 AZITHROMYCIN 94612791372 No Longer Active Carlton Hu MD Acti ve ZITHROMAX Z-REYNA 250 MG TABS 2 today, then 1 daily for 4 days 201 08/07/20 AZITHROMYCIN 90239864307 No Longer Active Columba Raida Act nael AUGMENTIN 875-125 MG TAB 1 po BID x 10 days AMOXICILLIN- POT CLAVULANATE 88282532736 No Longer Active Diya De Guzman APRN Active ZITHROMAX 250 MG TAB 2 po today, then 1 po q days 2-5 AZITHROMYCIN 19575810835 No Longer Active Carlton Hu MD Acti ve TRAMADOL HCL 50 MG TABS 1 po tid with ES Tylenol TRAMADOL HCL 74739965708 Active Carlton Hu MD Active PREMARIN 0.625 MG TABS TAKE 1 TAB BY MOUTH DAILY 07/25 ESTROGENS CONJUGATED 90942641977 No Longer Active Ridge Bess DO Active CYMBALTA 30 MG CPEP 1 cap by mouth daily DULOXE SNEHA HCL 19685898605 No Longer Active Ridge Bess DO Active AMOXICILLIN 500 MG CAP 1 tab by mouth 3 times daily x 10 days 20 14/04/28 AMOXICILLIN 29776021602 No Longer Active Carlton Hu MD Active AMOXICILLIN 500 MG CAP 1 tab by mouth 3 times daily x 10 days 20 13/03/08 AMOXICILLIN 59624458762 No Longer Active Carlton Hu MD Active PROMETHAZINE-CODEINE 6.25-10 MG/5ML SYRP 1 tsp by mouth ever y 8 hours prn cough PROMETHAZINE-CODEINE 89999873751 No Longer Active Robert Hu MD Active MEDROL (REYNA) 4 MG TABS 6 pills x 1 day, then 5 pill s x 1 day then 4 pills x 1 day, then 3 pills x 1 day, then 2 pills x 1 day, then 1 pill x 1 day, then stop METHYLPREDNISOLONE 49490027962 No Longer Active Parris Mora MD Active AZITHROMYCIN 250 MG TABS 2 po qd x 1 day, then 1 po qd x 4 days AZITHROMYCIN 14198426828 No Longer Active Perez Mora MD Active SYMBICORT 160-4.5 MCG/ACT AERO 2 puffs bid with rinse after 2011 BUDESONIDE-FORMOTEROL FUMARATE 99751828566 No Longer Active Perez Mora MD Active LYRICA 75 MG CAPS TAKE 1 CAPSULE BY MOUTH TWICE DAILY 2013 PREGABALIN 91092819587 No Longer Active Carlton Hu MD Active LYRICA 100 MG CAPS Take 1 tab po BID for fibromyalgia PREGABALIN 10414960375 Active Elise Whitmore APRN Active TOPAMAX 25 MG TABS 1 qHS x 1 week, then 1 BID x 1 week, then 1 qAM and 2 qHS x 1 week, then 2 BID (migraine prevention) TOPIRAMAT E 91956132603 No Longer Active Jericacatrachita FUENTES Active TOPAMAX 50 MG TABS take 1 tab po BID for migraines. 12/07/10 TOPIRAMATE 70321469582 No Longer Active Jerica FUENTES Ac tive TOPAMAX 100 MG TABS Take 1 tablet po bid TOPIRAMATE 4999 5270301 Active Carlton Hu MD Active TRIAMCINOLONE ACETONIDE 0.1 % CREA apply three times daily prn r beatrice TRIAMCINOLONE ACETONIDE 59025633529 No Longer Active Carlton Hu MD Active PAXIL 40 MG TAB take 1 tab po qday for depression PAROXETINE HCL 63661664760 Active Elise Whitmore POULTRY HUSBANDMAN Active CHERATUSSIN AC 100-10 MG/5ML SYRP 5ml po q6hr PRN Cough GUAIFENESIN-CODEINE 67792850145 No Longer Active Carlton Hu MD Active MEDROL (REYNA) 4 MG TABS 6 tabs on day 1, 5 tabs on d ay 2, 4 tabs on day 3, 3 tabs on day 4, 2 tabs on day 5, 1 tab on day 6 METHYLPREDNISOLONE 22853868042 No Longer Active Perez Mora MD Active AZITHROMYCIN 250 MG TABS 2 po qd x 1 day, then 1 po qd x 4 days AZITHROMYCIN 13828268198 No Longer Active Perez Mora MD Active PROPRANOLOL HCL 60 MG TABS 1 PO Q D PROPRANOL OL HCL 67528369476 No Longer Active Perez Mora MD Active CHERATUSSIN AC 100-10 MG/5ML SYRP take one tsp po Q 6hours prn c ough GUAIFENESIN-CODEINE 14388635570 No Longer Active Perez Means Active AUGMENTIN 875-125 MG TAB 1 tab by mouth twice daily with food 20 12/03/31 AMOXICILLIN-POT CLAVULANATE 76303444161 No Longer Active Chanel Mora MD Active CHERATUSSIN AC 100-10 MG/5ML SYRP 1 tsp by mouth every 4 hours as needed for cough GUAIFENESIN-CODEINE 83227043522 No Longer Activ e Hugo Restrepo MD Active ACETAMINOPHEN-CODEINE #3 300-30 MG TABS 1 PO Q 4-6 HRS PRN PAIN ACETAMINOPHEN-CODEINE 75891960429 No Longer Active Hugo Restrepo MD Active LEVAQUIN 500 MG TABS take one po QD LEVOFLOXACI N 38781821373 No Longer Active Griffin HERNANDEZ Active PREDNISONE 20 MG TAB Take 3 tabs daily for 3 days , 2 tabs daily for 3 days, 1 tab daily for 3 days, 1/2 tab daily for 3 days P REDNISONE 34685600379 No Longer Active Carlton Hu MD Active AVELOX 400 MG TABS 1 tab by mouth daily MOXIFLO XACIN HCL 71776130570 No Longer Active Carlton Hu MD Active CHERATUSSIN AC 100-10 MG/5ML SYRP 1 tsp by mouth every 4 hours as needed for cough GUAIFENESIN-CODEINE 38103685396 No Longer Activ e Hugo Restrepo MD Active AVELOX 400 MG TABS 1 tab by mouth daily MOXIFLO XACIN HCL 52252022195 No Longer Active Marcy De La Rosa MD PhD Active TERBINAFINE HCL 250 MG TABS 1 qDay TERBINAF INE HCL 49967050203 No Longer Active Marcy De La Rosa MD PhD Active CHERATUSSIN AC 100-10 MG/5ML SYRP 1 tsp by mouth every 4 hours as needed for cough GUAIFENESIN-CODEINE 22212771346 No Longer Activ e Marcy De La Rosa MD PhD Active AVELOX 400 MG TABS 1 tab by mouth daily MOXIFLO XACIN HCL 17212892801 No Longer Active Marcy De La Rosa MD PhD Active HYDROCODONE-ACETAMINOPHEN 5-325 MG TABS 1 po q 6hr PRN cough 201 05/09/16 HYDROCODONE-ACETAMINOPHEN 54621082508 No Longer Active Marcy De La Rosa MD PhD Active PREDNISONE 20 MG TAB 2 tabs daily for 3 days, 1 t ab daily for 3 days, 1/2 tab daily for 2 days PREDNISONE 42159562299 No Longer Active Carlton Hu MD Active CEFDINIR 300 MG CAPS by mouth twice a day CEFDI ODILIA 87172406731 No Longer Active Carlton Hu MD Active HYDROCHLOROTHIAZIDE 25 MG TABS 1 TAB PO DAILY H YDROCHLOROTHIAZIDE 23248727148 Active Carlton Hu MD Active ACETAMINOPHEN-CODEINE #3 300-30 MG TABS 1 tablet po q 4-6hrs prn pain ACETAMINOPHEN-CODEINE 59105450719 No Longer Active Ridge Bess DO Active ZITHROMAX 250 MG TAB 2 po today, then 1 po q days 2-5 AZITHROMYCIN 61964936448 No Longer Active Carlton Hu MD Acti ve CHERATUSSIN AC 100-10 MG/5ML SYRP take 1 tsp po q4-6 hours prn c ough GUAIFENESIN-CODEINE 61294846727 No Longer Active Carlton Hu MD Active ACETAMINOPHEN-CODEINE #3 300-30 MG TABS 1 PO Q 4-6 HR PRN PAIN 2 ACETAMINOPHEN-CODEINE 50012928056 No Longer Active Carlton rich MD Active LORTAB 7.5-500 MG/15ML ELIX 7.5 ml po q 4 hour prn cough HYDROCODONE-ACETAMINOPHEN 89768465392 No Longer Active Carlton Hu MD Active PREDNISONE 20 MG TAB 1 po bid 3 days, then 1 po q day 3 days 201 05/03/07 PREDNISONE 56023800332 No Longer Active Carlton Hu MD Active ELMIRON 100 MG CAPS 2 tablets in the am and 1 tablet at hs PENTOSAN POLYSULFATE SODIUM 65089146055 Active Carlton Hu MD Ac tive CEFDINIR 300 MG CAPS by mouth twice a day CEFDI ODILIA 40633468138 No Longer Active Carlton Hu MD Active CEFDINIR 300 MG CAPS by mouth twice a day CEFDI ODILIA 19102475215 No Longer Active Carlton Hu MD Active CEFDINIR 300 MG CAPS by mouth twice a day CEFDI ODILIA 65214005324 No Longer Active Carlton Hu MD Active TESSALON PERLES 100 MG CAP 1 tablet by mouth 3 times daily a s needed for cough BENZONATATE 70023039663 No Longer Active Carlton bustamante MD Active CEFDINIR 300 MG CAPS by mouth twice a day CEFDI ODILIA 16780902657 No Longer Active Carlton Hu MD Active ZITHROMAX Z-REYNA 250 MG TABS 2 today, then 1 daily for 4 days 201 04/09/17 AZITHROMYCIN 24088013149 No Longer Active Hugo Restrepo MD Active TESSALON PERLES 100 MG CAP 1 tablet by mouth 3 times daily a s needed for cough TESSALON PERLES 100 MG CAP 862832 BENZONATATE I nactive PREDNISONE 20 MG TAB 1 po bid 3 days, then 1 po q day 3 days 201 05/03/07 PREDNISONE 20 MG TAB 719078 PREDNISONE Inactive LORTAB 7.5-500 MG/15ML ELIX 7.5 ml po q 4 hour prn cough LORTAB 7.5-500 MG/15ML ELIX HYDROCODONE-ACETAMINOPHEN Inacti ve ACETAMINOPHEN-CODEINE #3 300-30 MG TABS 1 PO Q 4-6 HR PRN PAIN 2 ACETAMINOPHEN-CODEINE #3 300-30 MG TABS 158348 ACETAMIN OPHEN-CODEINE Inactive CHERATUSSIN AC 100-10 MG/5ML SYRP take 1 tsp po q4-6 hours prn c ough CHERATUSSIN AC 100-10 MG/5ML SYRP 040553 GUAIFENESIN-CO DEINE Inactive ACETAMINOPHEN-CODEINE #3 300-30 MG TABS 1 tablet po q 4-6hrs prn pain ACETAMINOPHEN-CODEINE #3 300-30 MG TABS 877801 ACETAMIN OPHEN-CODEINE Inactive HYDROCODONE-ACETAMINOPHEN 5-325 MG TABS 1 po q 6hr PRN cough 201 05/09/16 HYDROCODONE-ACETAMINOPHEN 5-325 MG TABS 561021 HYDROCODONE-ACETAMINOPHEN Inactive AVELOX 400 MG TABS 1 tab by mouth daily A VELOX 400 MG TABS 213218 MOXIFLOXACIN HCL Inactive CHERATUSSIN AC 100-10 MG/5ML SYRP 1 tsp by mouth every 4 hours as needed for cough CHERATUSSIN AC 100-10 MG/5ML SYRP 998095 GUAIFENESIN-CODEINE Inactive TERBINAFINE HCL 250 MG TABS 1 qDay TERBINAFINE HCL 250 MG TABS 619051 TERBINAFINE HCL Inactive CHERATUSSIN AC 100-10 MG/5ML SYRP 1 tsp by mouth every 4 hours as needed for cough CHERATUSSIN AC 100-10 MG/5ML SYRP 566950 GUAIFENESIN-CODEINE Inactive ACETAMINOPHEN-CODEINE #3 300-30 MG TABS 1 PO Q 4-6 HRS PRN PAIN ACETAMINOPHEN-CODEINE #3 300-30 MG TABS 462537 ACETAMINOPHEN-CODEIN E Inactive CHERATUSSIN AC 100-10 MG/5ML SYRP 1 tsp by mouth every 4 hours as needed for cough CHERATUSSIN AC 100-10 MG/5ML SYRP 726118 GUAIFENESIN-CODEINE Inactive AUGMENTIN 875-125 MG TAB 1 tab by mouth twice daily with food 20 12/03/31 AUGMENTIN 875-125 MG TAB 118262 AMOXICILLIN-POT CLAVULA EFE Inactive CHERATUSSIN AC 100-10 MG/5ML SYRP take one tsp po Q 6hours prn c ough CHERATUSSIN AC 100-10 MG/5ML SYRP 068062 GUAIFENESIN-CO DEINE Inactive PROPRANOLOL HCL 60 MG TABS 1 PO Q D P ROPRANOLOL HCL 60 MG TABS 827440 PROPRANOLOL HCL Inactive TOPAMAX 50 MG TABS take 1 tab po BID for migraines. 12/07/10 TOPAMAX 50 MG TABS 893422 TOPIRAMATE Inactive TOPAMAX 25 MG TABS 1 qHS x 1 week, then 1 BID x 1 week, then 1 qAM and 2 qHS x 1 week, then 2 BID (migraine prevention) TOPAMAX 2 5 MG TABS 789997 TOPIRAMATE Inactive LYRICA 75 MG CAPS TAKE 1 CAPSULE BY MOUTH TWICE DAILY LYRICA 75 MG CAPS PREGABALIN Inactive SYMBICORT 160-4.5 MCG/ACT AERO 2 puffs bid with rinse after 2011 SYMBICORT 160-4.5 MCG/ACT AERO BUDESONIDE-FORMOT SÁNCHEZ FUMARATE Inactive PROMETHAZINE-CODEINE 6.25-10 MG/5ML SYRP 1 tsp by mouth ever y 8 hours prn cough PROMETHAZINE-CODEINE 6.25-10 MG/5ML SYRP 492343 PROMETHAZINE-CODEINE Inactive CYMBALTA 30 MG CPEP 1 cap by mouth daily CYMBALTA 30 MG CPEP 551997 DULOXETINE HCL Inactive PREMARIN 0.625 MG TABS TAKE 1 TAB BY MOUTH DAILY 07/25 PREMARIN 0.625 MG TABS ESTROGENS CONJUGATED Inactive CHERATUSSIN AC 100-10 MG/5ML SYRP 1 tsp by mouth every 4 hours as needed for cough CHERATUSSIN AC 100-10 MG/5ML SYRP 415157 GUAIFENESIN-CODEINE Inactive PROMETHAZINE-CODEINE 6.25-10 MG/5ML SYRP 1 tsp by mout h every 6 hours if needed for cough PROMETHAZINE-CODEINE 6.25-10 MG/5ML SYRP 466535 PROMETHAZINE-CODEINE Inactive CHERATUSSIN AC 100-10 MG/5ML SYRP 1 tsp by mouth every 4 hours as needed for cough CHERATUSSIN AC 100-10 MG/5ML SYRP 119116 GUAIFENESIN-CODEINE Inactive FLUTICASONE PROPIONATE 50 MCG/ACT SUSP 1 to 2 sprays each no stril daily FLUTICASONE PROPIONATE 50 MCG/ACT SUSP 134315 FLUTICASONE PROPIONATE Inactive PREDNISONE 20 MG ORAL TABS 3 tab PO qd x 2d, 2 tab PO qd x 2d, 1 tab PO qd x 2d, 1/2 tab PO qd x 2d PREDNISONE 20 MG ORAL TABS 722457 PREDNISONE Inactive LEVOFLOXACIN 500 MG ORAL TABS 1 tab PO daily x 10 days LEVOFLOXACIN 500 MG ORAL TABS 385657 LEVOFLOXACIN Inactive CYCLOBENZAPRINE HCL 10 MG TABS 1 tablet by mouth BID prn had cherelle n CYCLOBENZAPRINE HCL 10 MG TABS 018271 CYCLOBENZAPRINE H CL Inactive ZOCOR 40 MG TAB 1 tab by mouth daily ZOCOR 40 M G TAB 680958 SIMVASTATIN Inactive ZITHROMAX Z-REYNA 250 MG TABS 2 today, then 1 daily for 4 days 201 04/09/17 ZITHROMAX Z-REYNA 250 MG TABS 1212486 AZITHROMYCIN Inac tive CEFDINIR 300 MG CAPS [...] q days 2-5 ZITHROMAX 250 MG TAB 1308245 AZITHROMYCIN Inactive CEFDINIR 300 MG CAPS by mouth twice a day CEFDINIR 300 MG CAPS 20020704 CEFDINIR Inactive PREDNISONE 20 MG TAB 2 tabs daily for 3 days, 1 t ab daily for 3 days, 1/2 tab daily for 2 days PREDNISONE 20 MG TAB 339201 PREDNISON E Inactive AVELOX 400 MG TABS 1 tab by mouth daily A VELOX 400 MG TABS 641978 MOXIFLOXACIN HCL Inactive AVELOX 400 MG TABS 1 tab by mouth daily A VELOX 400 MG TABS 371061 MOXIFLOXACIN HCL Inactive PREDNISONE 20 MG TAB Take 3 tabs daily for 3 days , 2 tabs daily for 3 days, 1 tab daily for 3 days, 1/2 tab daily for 3 days PREDNISONE 20 MG TAB 681208 PREDNISONE Inactive LEVAQUIN 500 MG TABS take one po QD LEVAQUIN 50 0 MG TABS 352168 LEVOFLOXACIN Inactive AZITHROMYCIN 250 MG TABS 2 po qd x 1 day, then 1 po qd x 4 days AZITHROMYCIN 250 MG TABS 0590362 AZITHROMYCIN Inactiv e MEDROL (REYNA) 4 MG TABS 6 tabs on day 1, 5 tabs on d ay 2, 4 tabs on day 3, 3 tabs on day 4, 2 tabs on day 5, 1 tab on day 6 MEDROL (REYNA) 4 MG TABS 339733 METHYLPREDNISOLONE Inactive CHERATUSSIN AC 100-10 MG/5ML SYRP 5ml po q6hr PRN Cough CHERATUSSIN AC 100-10 MG/5ML SYRP 785406 GUAIFENESIN-CODEINE Inacti ve TRIAMCINOLONE ACETONIDE 0.1 % CREA apply three times daily prn r beatrice TRIAMCINOLONE ACETONIDE 0.1 % CREA 2421783 TRIAMCINOLONE ACETONIDE Inactive AZITHROMYCIN 250 MG TABS 2 po qd x 1 day, then 1 po qd x 4 days AZITHROMYCIN 250 MG TABS 9246322 AZITHROMYCIN Inactiv e MEDROL (REYNA) 4 MG TABS 6 pills x 1 day, then 5 pill s x 1 day then 4 pills x 1 day, then 3 pills x 1 day, then 2 pills x 1 day, then 1 pill x 1 day, then stop MEDROL (REYNA) 4 MG TABS 184568 METHYLPREDNISOLONE Inactive AMOXICILLIN 500 MG CAP 1 tab by mouth 3 times daily x 10 days 20 13/03/08 AMOXICILLIN 500 MG CAP 480130 AMOXICILLIN Inactive AMOXICILLIN 500 MG CAP 1 tab by mouth 3 times daily x 10 days 20 14/04/28 AMOXICILLIN 500 MG CAP 274329 AMOXICILLIN Inactive ZITHROMAX 250 MG TAB 2 po today, then 1 po q days 2-5 ZITHROMAX 250 MG TAB 8081179 AZITHROMYCIN Inactive AUGMENTIN 875-125 MG TAB 1 po BID x 10 days AUGMENTIN 875- 125 MG TAB 258376 AMOXICILLIN-POT CLAVULANATE Inactive ZITHROMAX Z-REYNA 250 MG TABS 2 today, then 1 daily for 4 days 201 08/07/20 ZITHROMAX Z-REYNA 250 MG TABS 4179547 AZITHROMYCIN Inac tive ZITHROMAX 250 MG TAB 2 po today, then 1 po q days 2-5 ZITHROMAX 250 MG TAB 0561375 AZITHROMYCIN Inactive ZITHROMAX Z-REYNA 250 MG TABS 2 today, then 1 daily for 4 days 201 08/30/03 ZITHROMAX Z-REYNA 250 MG TABS 7353019 AZITHROMYCIN Inac tive CEFDINIR 300 MG CAPS 1 po BID x 10 days C EFDINIR 300 MG CAPS 398698 CEFDINIR Inactive ZITHROMAX 250 MG TAB 2 po today, then 1 po q days 2-5 ZITHROMAX 250 MG TAB 9641864 AZITHROMYCIN Inactive LEVAQUIN 500 MG TAB 1 tablet by mouth daily LEVAQUIN 500 MG TAB 398896 LEVOFLOXACIN Inactive Vital Signs Date Name Value [...] Measured Encounters Code Encounter Date Provider Facility CPT-18171 Level 3 Est. Patient 10:11:46 CDT Carlton rich MD [facility] CPT-44291 Level 3 Est. Patient 17:29:43 CDT EliseJavier [facility] CPT-01677 Level 3 Est. Patient 11:58:06 CDT Italo [facility] CPT-74464 Level 4 Est. Patient 14:36:51 CDT Carlton rich MD [facility] CPT-03725 Level 3 Est. Patient 18:16:00 SUPERINTENDENT PRODUCTION Blaine HERNANDEZ [facility] CPT-12142 Level 3 Est. Patient 09:45:49 SUPERINTENDENT PRODUCTION Carlton rich MD [facility] CPT-63074 Level 3 Est. Patient 13:19:20 CDT Carlton rich MD [facility] CPT-82370 Level 3 Est. Patient 13:06:43 CDT Ridge tam DO [facility]-30158 Level 3 Est. Patient 10:03:07 CDT Perez Mora MD [facility]-57920 Level 3 Est. Patient 19:50:35 SUPERINTENDENT PRODUCTION Carlton rich MD [facility]-94525 Level 4 Est. Patient 18:05:01 SUPERINTENDENT PRODUCTION Carlton rich MD [facility]-88472 Level 3 Est. Patient 10:45:55 SUPERINTENDENT PRODUCTION Hugo Restrepo MD [facility]-99126 Level 3 Est. Patient 14:12:49 CDT Griffin HERNANDEZ [facility]-07562 Level 3 Est. Patient 17:37:24 CDT Carlton rich MD [facility]-71718 Level 3 Est. Patient 16:51:54 CDT Carlton rich MD [facility]-86065 Level 3 Est. Patient 12:18:11 CDT Hugo Restrepo MD [facility]-33596 Level 3 Est. Patient 11:30:25 CDT Marcy crisostomo MD PhD [facility]-12381 Level 3 Est. Patient 12:00:47 SUPERINTENDENT PRODUCTION Carlton rich MD [facility]-14528 Level 3 Est. Patient 16:31:06 SUPERINTENDENT PRODUCTION Carlton rich MD [facility] CPT-37340 Level 3 Est. Patient 16:23:24 SUPERINTENDENT PRODUCTION Ridge tam DO [facility]-01237 Level 3 Est. Patient 12:34:12 CDT Carlton rich MD [facility]-95728 Level 2 Est. Patient 15:43:33 CDT Robi armstrong MD [facility]-84837 Level 4 Est. Patient 14:04:44 CDT Carlton rich MD [facility] CPT-12242 Level 3 Est. Patient 05:47:59 CDT Ridge Jaun Celeste anel DO [facility] CPT-81541 Level 3 Est. Patient 13:12:53 SUPERINTENDENT PRODUCTION Carlton rich MD [facility] CPT-59517 Level 3 Est. Patient 14:26:53 CDT Hugo Restrepo MD [facility] Procedures Code Procedure Name Date Entry Date Standard Desc ription CPT-J0696 Rocephin 1gm Inj Solr 14:32:13 CDT CPT-J1020 Depo Medrol 60 mg (Methyl Prednisolone A cetate) 14:32:13 CDT CPT-J1100 Decadron 6mg (Dexamethasone) 14:32:13 CDT 2 CPT-06986 Hip bilat min 2V w AP pelvis 13:16:20 CDT 2 CPT-51042 Pelvis only 13:07:33 CDT CPT-88381 Spec Collection and Handling Fee 11:25:12 C DT CPT-95703 Fluzone Quadrivalent Intramuscular Suspe nsion 0.5 ML 14:31:55 CDT CPT-18351 Abx/Therapy Injection 13:28:47 SUPERINTENDENT PRODUCTION CPT-J2930 Solu Medrol 125 mg (Methyl Prednisolone Sodium Succinate) 12:00:47 SUPERINTENDENT PRODUCTION CPT-16770 Venipuncture Draw Fee 11:33:31 CDT CPT-76191 EKG Trac and Interp 11:21:09 CDT CPT-66846 Chest 2V Frontal and Lat 11:21:09 CDT 12/15 CPT-99643 Venipuncture Draw Fee 08:02:34 CDT CPT-02215 Chest 2V Frontal and Lat 05:47:59 CDT 06/05
--- OUTSIDE RECORDS SUMMARY | 2019-10-08 08:37 | XMS REPORT | Clinical Summary ---
Author Author Caitlin, Juliana Martinez Organization [facility] Address Unknown Phone Unavailable Allergies, Adverse Reactions, Alerts Allergy Name Reaction Description Start Date Severity Status Pr ovider No Known Allergies [facility] Conditions or Problems Problem Name [...] 12 hrs PRN cough HYDROCOD POLST-CHLORPHEN POLST [id number] Active Blaine HERNANDEZ Active PREDNISONE 20 MG ORAL TABS 3 tab PO qd x 2d, 2 tab PO qd x 2d, 1 tab PO qd x 2d, 1/2 tab PO qd x 2d PREDNISONE 10690760361 Active Khanh HERNANDEZ Active LEVOFLOXACIN 500 MG ORAL TABS 1 tab PO daily x 10 days LEVOFLOXACIN 39078876805 Active Blaine HERNANDEZ Active FLUTICASONE PROPIONATE 50 MCG/ACT SUSP 1 to 2 sprays each no stril daily FLUTICASONE PROPIONATE 25150757327 No Longer Active T jaz HERNANDEZ Active CHERATUSSIN AC 100-10 MG/5ML SYRP 1 tsp by mouth every 4 hours as needed for cough GUAIFENESIN-CODEINE 33005998227 No Longer Activ e Blaine HERNANDEZ Active PROMETHAZINE-CODEINE 6.25-10 MG/5ML SYRP 1 tsp by mout h every 6 hours if needed for cough PROMETHAZINE-CODEINE 20824584499 No Long er Active Blaine HERNANDEZ Active CHERATUSSIN AC 100-10 MG/5ML SYRP 1 tsp by mouth every 4 hours as needed for cough GUAIFENESIN-CODEINE 50922013029 No Longer Activ e Blaine HERNANDEZ Active ZITHROMAX Z-REYNA 250 MG TABS 2 today, then 1 daily for 4 days 201 08/30/03 AZITHROMYCIN 37652036037 No Longer Active Columba Raida Act nael ZITHROMAX 250 MG TAB 2 po today, then 1 po q days 2-5 AZITHROMYCIN 56390795169 No Longer Active Carlton Hu MD Acti ve ZITHROMAX Z-REYNA 250 MG TABS 2 today, then 1 daily for 4 days 201 08/07/20 AZITHROMYCIN 19457850564 No Longer Active Columba Raida Act nael AUGMENTIN 875-125 MG TAB 1 po BID x 10 days AMOXICILLIN- POT CLAVULANATE 71468490037 No Longer Active Diya De Guzman APRN Active ZITHROMAX 250 MG TAB 2 po today, then 1 po q days 2-5 AZITHROMYCIN 44352604233 No Longer Active Carlton Hu MD Acti ve TRAMADOL HCL 50 MG TABS 1 po tid with ES Tylenol TRAMADOL HCL 39293197563 Active Carlton Hu MD Active PREMARIN 0.625 MG TABS TAKE 1 TAB BY MOUTH DAILY 07/25 ESTROGENS CONJUGATED 15535080250 No Longer Active Ridge Bess DO Active CYMBALTA 30 MG CPEP 1 cap by mouth daily DULOXE SNEHA HCL 52084659438 No Longer Active Ridge Bess DO Active AMOXICILLIN 500 MG CAP 1 tab by mouth 3 times daily x 10 days 20 14/04/28 AMOXICILLIN 21604535387 No Longer Active Carlton Hu MD Active AMOXICILLIN 500 MG CAP 1 tab by mouth 3 times daily x 10 days 20 13/03/08 AMOXICILLIN 52298557929 No Longer Active Carlton Hu MD Active CYCLOBENZAPRINE HCL 10 MG TABS 1 tablet by mouth BID prn had pain 2 CYCLOBENZAPRINE HCL 61349167967 Active Carlton Hu MD A ctive PROMETHAZINE-CODEINE 6.25-10 MG/5ML SYRP 1 tsp by mouth ever y 8 hours prn cough PROMETHAZINE-CODEINE 66086130786 No Longer Active Robert Hu MD Active MEDROL (REYNA) 4 MG TABS 6 pills x 1 day, then 5 pill s x 1 day then 4 pills x 1 day, then 3 pills x 1 day, then 2 pills x 1 day, then 1 pill x 1 day, then stop METHYLPREDNISOLONE 50653200384 No Longer Active Parris Mora MD Active AZITHROMYCIN 250 MG TABS 2 po qd x 1 day, then 1 po qd x 4 days AZITHROMYCIN 29323082710 No Longer Active Perez Mora MD Active SYMBICORT 160-4.5 MCG/ACT AERO 2 puffs bid with rinse after 2011 BUDESONIDE-FORMOTEROL FUMARATE 12531858113 No Longer Active Perez Mora MD Active LYRICA 75 MG CAPS TAKE 1 CAPSULE BY MOUTH TWICE DAILY 2013 PREGABALIN 44094809569 No Longer Active Carlton Hu MD Active LYRICA 100 MG CAPS Take 1 tab po BID for fibromyalgia PREGABALIN 16246633031 Active Carlton Hu MD Active TOPAMAX 25 MG TABS 1 qHS x 1 week, then 1 BID x 1 week, then 1 qAM and 2 qHS x 1 week, then 2 BID (migraine prevention) TOPIRAMAT E 91912036876 No Longer Active Jerica Farnaz RMA Active TOPAMAX 50 MG TABS take 1 tab po BID for migraines. 12/07/10 TOPIRAMATE 60051888041 No Longer Active Jerica AGUILARA Ac tive TOPAMAX 100 MG TABS Take 1 tablet po bid TOPIRAMATE 4999 4818881 Active Carlton Hu MD Active TRIAMCINOLONE ACETONIDE 0.1 % CREA apply three times daily prn r beatrice TRIAMCINOLONE ACETONIDE 03479516632 No Longer Active Carlton Hu MD Active PAXIL 40 MG TAB take 1 tab po qday for depression PAROXETINE HCL 71135417160 Active Elise Whitmore THERAPY SITE COORDINATOR Active CHERATUSSIN AC 100-10 MG/5ML SYRP 5ml po q6hr PRN Cough GUAIFENESIN-CODEINE 32135053350 No Longer Active Carlton Hu MD Active MEDROL (REYNA) 4 MG TABS 6 tabs on day 1, 5 tabs on d ay 2, 4 tabs on day 3, 3 tabs on day 4, 2 tabs on day 5, 1 tab on day 6 METHYLPREDNISOLONE 57790188309 No Longer Active Perez Mora MD Active AZITHROMYCIN 250 MG TABS 2 po qd x 1 day, then 1 po qd x 4 days AZITHROMYCIN 29035204641 No Longer Active Perez Mora MD Active PROPRANOLOL HCL 60 MG TABS 1 PO Q D PROPRANOL OL HCL 81850311289 No Longer Active Perez Mora MD Active CHERATUSSIN AC 100-10 MG/5ML SYRP take one tsp po Q 6hours prn c ough GUAIFENESIN-CODEINE 30679925657 No Longer Active Perez Means Active AUGMENTIN 875-125 MG TAB 1 tab by mouth twice daily with food 20 12/03/31 AMOXICILLIN-POT CLAVULANATE 79753500023 No Longer Active Chanel Mora MD Active CHERATUSSIN AC 100-10 MG/5ML SYRP 1 tsp by mouth every 4 hours as needed for cough GUAIFENESIN-CODEINE 59617892991 No Longer Activ e Hugo Restrepo MD Active ACETAMINOPHEN-CODEINE #3 300-30 MG TABS 1 PO Q 4-6 HRS PRN PAIN ACETAMINOPHEN-CODEINE 32018893621 No Longer Active Hugo Restrepo MD Active LEVAQUIN 500 MG TABS take one po QD LEVOFLOXACI N 86813542404 No Longer Active Griffin HERNANDEZ Active PREDNISONE 20 MG TAB Take 3 tabs daily for 3 days , 2 tabs daily for 3 days, 1 tab daily for 3 days, 1/2 tab daily for 3 days P REDNISONE 36273278936 No Longer Active Carlton Hu MD Active AVELOX 400 MG TABS 1 tab by mouth daily MOXIFLO XACIN HCL 01354690721 No Longer Active Carlton Hu MD Active CHERATUSSIN AC 100-10 MG/5ML SYRP 1 tsp by mouth every 4 hours as needed for cough GUAIFENESIN-CODEINE 33997404929 No Longer Activ e Hugo Restrepo MD Active AVELOX 400 MG TABS 1 tab by mouth daily MOXIFLO XACIN HCL 05578120617 No Longer Active Marcy De La Rosa MD PhD Active TERBINAFINE HCL 250 MG TABS 1 qDay TERBINAF INE HCL 82333942409 No Longer Active Marcy De La Rosa MD PhD Active CHERATUSSIN AC 100-10 MG/5ML SYRP 1 tsp by mouth every 4 hours as needed for cough GUAIFENESIN-CODEINE 78604056892 No Longer Activ e Marcy De La Rosa MD PhD Active AVELOX 400 MG TABS 1 tab by mouth daily MOXIFLO XACIN HCL 56540539127 No Longer Active Marcy De La Rosa MD PhD Active HYDROCODONE-ACETAMINOPHEN 5-325 MG TABS 1 po q 6hr PRN cough 201 05/09/16 HYDROCODONE-ACETAMINOPHEN 77225893563 No Longer Active Marcy De La Rosa MD PhD Active PREDNISONE 20 MG TAB 2 tabs daily for 3 days, 1 t ab daily for 3 days, 1/2 tab daily for 2 days PREDNISONE 41382192159 No Longer Active Carlton Hu MD Active CEFDINIR 300 MG CAPS by mouth twice a day CEFDI ODILIA 04246939956 No Longer Active Carlton Hu MD Active ZOCOR 40 MG TAB 1 tab by mouth daily SIMVASTATIN 08653835693 Active Carlton Hu MD Active HYDROCHLOROTHIAZIDE 25 MG TABS 1 TAB PO DAILY H YDROCHLOROTHIAZIDE 97827428878 Active Carlton Hu MD Active ACETAMINOPHEN-CODEINE #3 300-30 MG TABS 1 tablet po q 4-6hrs prn pain ACETAMINOPHEN-CODEINE 35437638884 No Longer Active Ridge Bess DO Active ZITHROMAX 250 MG TAB 2 po today, then 1 po q days 2-5 AZITHROMYCIN 30873638325 No Longer Active Carlton Hu MD Acti ve CHERATUSSIN AC 100-10 MG/5ML SYRP take 1 tsp po q4-6 hours prn c ough GUAIFENESIN-CODEINE 52422300566 No Longer Active Carlton Hu MD Active ACETAMINOPHEN-CODEINE #3 300-30 MG TABS 1 PO Q 4-6 HR PRN PAIN 2 ACETAMINOPHEN-CODEINE 35984304099 No Longer Active Carlton rich MD Active LORTAB 7.5-500 MG/15ML ELIX 7.5 ml po q 4 hour prn cough HYDROCODONE-ACETAMINOPHEN 52339731606 No Longer Active Carlton Hu MD Active PREDNISONE 20 MG TAB 1 po bid 3 days, then 1 po q day 3 days 201 05/03/07 PREDNISONE 10499261742 No Longer Active Carlton Hu MD Active ELMIRON 100 MG CAPS 2 tablets in the am and 1 tablet at hs PENTOSAN POLYSULFATE SODIUM 15660114180 Active Gracie [place] Active CEFDINIR 300 MG CAPS by mouth twice a day CEFDI ODILIA 30875335657 No Longer Active Carlton Hu MD Active CEFDINIR 300 MG CAPS by mouth twice a day CEFDI ODILIA 86928750728 No Longer Active Carlton Hu MD Active CEFDINIR 300 MG CAPS by mouth twice a day CEFDI ODILIA 32135188058 No Longer Active Carlton Hu MD Active TESSALON PERLES 100 MG CAP 1 tablet by mouth 3 times daily a s needed for cough BENZONATATE 59717103900 No Longer Active Carlton bustamante MD Active CEFDINIR 300 MG CAPS by mouth twice a day CEFDI ODILIA 88311352881 No Longer Active Carlton Hu MD Active ZITHROMAX Z-REYNA 250 MG TABS 2 today, then 1 daily for 4 days 201 04/09/17 AZITHROMYCIN 53865260361 No Longer Active Hugo Restrepo MD Active TESSALON PERLES 100 MG CAP 1 tablet by mouth 3 times daily a s needed for cough TESSALON PERLES 100 MG CAP 336382 BENZONATATE I nactive PREDNISONE 20 MG TAB 1 po bid 3 days, then 1 po q day 3 days 201 05/03/07 PREDNISONE 20 MG TAB 074136 PREDNISONE Inactive LORTAB 7.5-500 MG/15ML ELIX 7.5 ml po q 4 hour prn cough LORTAB 7.5-500 MG/15ML ELIX HYDROCODONE-ACETAMINOPHEN Inacti ve ACETAMINOPHEN-CODEINE #3 300-30 MG TABS 1 PO Q 4-6 HR PRN PAIN 2 ACETAMINOPHEN-CODEINE #3 300-30 MG TABS 676550 ACETAMIN OPHEN-CODEINE Inactive CHERATUSSIN AC 100-10 MG/5ML SYRP take 1 tsp po q4-6 hours prn c ough CHERATUSSIN AC 100-10 MG/5ML SYRP 716006 GUAIFENESIN-CO DEINE Inactive ACETAMINOPHEN-CODEINE #3 300-30 MG TABS 1 tablet po q 4-6hrs prn pain ACETAMINOPHEN-CODEINE #3 300-30 MG TABS 036750 ACETAMIN OPHEN-CODEINE Inactive HYDROCODONE-ACETAMINOPHEN 5-325 MG TABS 1 po q 6hr PRN cough 201 05/09/16 HYDROCODONE-ACETAMINOPHEN 5-325 MG TABS 305303 HYDROCODONE-ACETAMINOPHEN Inactive AVELOX 400 MG TABS 1 tab by mouth daily A VELOX 400 MG TABS 560732 MOXIFLOXACIN HCL Inactive CHERATUSSIN AC 100-10 MG/5ML SYRP 1 tsp by mouth every 4 hours as needed for cough CHERATUSSIN AC 100-10 MG/5ML SYRP 825607 GUAIFENESIN-CODEINE Inactive TERBINAFINE HCL 250 MG TABS 1 qDay TERBINAFINE HCL 250 MG TABS 694449 TERBINAFINE HCL Inactive CHERATUSSIN AC 100-10 MG/5ML SYRP 1 tsp by mouth every 4 hours as needed for cough CHERATUSSIN AC 100-10 MG/5ML SYRP 674373 GUAIFENESIN-CODEINE Inactive ACETAMINOPHEN-CODEINE #3 300-30 MG TABS 1 PO Q 4-6 HRS PRN PAIN ACETAMINOPHEN-CODEINE #3 300-30 MG TABS 941170 ACETAMINOPHEN-CODEIN E Inactive CHERATUSSIN AC 100-10 MG/5ML SYRP 1 tsp by mouth every 4 hours as needed for cough CHERATUSSIN AC 100-10 MG/5ML SYRP 225612 GUAIFENESIN-CODEINE Inactive AUGMENTIN 875-125 MG TAB 1 tab by mouth twice daily with food 20 12/03/31 AUGMENTIN 875-125 MG TAB 220428 AMOXICILLIN-POT CLAVULA EFE Inactive CHERATUSSIN AC 100-10 MG/5ML SYRP take one tsp po Q 6hours prn c ough CHERATUSSIN AC 100-10 MG/5ML SYRP 006522 GUAIFENESIN-CO DEINE Inactive PROPRANOLOL HCL 60 MG TABS 1 PO Q D P ROPRANOLOL HCL 60 MG TABS 008010 PROPRANOLOL HCL Inactive TOPAMAX 50 MG TABS take 1 tab po BID for migraines. 12/07/10 TOPAMAX 50 MG TABS 415949 TOPIRAMATE Inactive TOPAMAX 25 MG TABS 1 qHS x 1 week, then 1 BID x 1 week, then 1 qAM and 2 qHS x 1 week, then 2 BID (migraine prevention) TOPAMAX 2 5 MG TABS 198431 TOPIRAMATE Inactive LYRICA 75 MG CAPS TAKE 1 CAPSULE BY MOUTH TWICE DAILY LYRICA 75 MG CAPS PREGABALIN Inactive SYMBICORT 160-4.5 MCG/ACT AERO 2 puffs bid with rinse after 2011 SYMBICORT 160-4.5 MCG/ACT AERO BUDESONIDE-FORMOT SÁNCHEZ FUMARATE Inactive PROMETHAZINE-CODEINE 6.25-10 MG/5ML SYRP 1 tsp by mouth ever y 8 hours prn cough PROMETHAZINE-CODEINE 6.25-10 MG/5ML SYRP 129560 PROMETHAZINE-CODEINE Inactive CYMBALTA 30 MG CPEP 1 cap by mouth daily CYMBALTA 30 MG CPEP 197461 DULOXETINE HCL Inactive PREMARIN 0.625 MG TABS TAKE 1 TAB BY MOUTH DAILY 07/25 PREMARIN 0.625 MG TABS ESTROGENS CONJUGATED Inactive CHERATUSSIN AC 100-10 MG/5ML SYRP 1 tsp by mouth every 4 hours as needed for cough CHERATUSSIN AC 100-10 MG/5ML SYRP 273716 GUAIFENESIN-CODEINE Inactive PROMETHAZINE-CODEINE 6.25-10 MG/5ML SYRP 1 tsp by mout h every 6 hours if needed for cough PROMETHAZINE-CODEINE 6.25-10 MG/5ML SYRP 885892 PROMETHAZINE-CODEINE Inactive CHERATUSSIN AC 100-10 MG/5ML SYRP 1 tsp by mouth every 4 hours as needed for cough CHERATUSSIN AC 100-10 MG/5ML SYRP 588586 GUAIFENESIN-CODEINE Inactive FLUTICASONE PROPIONATE 50 MCG/ACT SUSP 1 to 2 sprays each no stril daily FLUTICASONE PROPIONATE 50 MCG/ACT SUSP 324313 FLUTICASONE PROPIONATE Inactive ZITHROMAX Z-REYNA 250 MG TABS 2 today, then 1 daily for 4 days 201 04/09/17 ZITHROMAX Z-REYNA 250 MG TABS 9560986 AZITHROMYCIN Inac tive CEFDINIR 300 MG CAPS [...] q days 2-5 ZITHROMAX 250 MG TAB 3088171 AZITHROMYCIN Inactive CEFDINIR 300 MG CAPS by mouth twice a day CEFDINIR 300 MG CAPS 309680 CEFDINIR Inactive PREDNISONE 20 MG TAB 2 tabs daily for 3 days, 1 t ab daily for 3 days, 1/2 tab daily for 2 days PREDNISONE 20 MG TAB 406154 PREDNISON E Inactive AVELOX 400 MG TABS 1 tab by mouth daily A VELOX 400 MG TABS 163887 MOXIFLOXACIN HCL Inactive AVELOX 400 MG TABS 1 tab by mouth daily A VELOX 400 MG TABS 829451 MOXIFLOXACIN HCL Inactive PREDNISONE 20 MG TAB Take 3 tabs daily for 3 days , 2 tabs daily for 3 days, 1 tab daily for 3 days, 1/2 tab daily for 3 days PREDNISONE 20 MG TAB 027280 PREDNISONE Inactive LEVAQUIN 500 MG TABS take one po QD LEVAQUIN 50 0 MG TABS 334275 LEVOFLOXACIN Inactive AZITHROMYCIN 250 MG TABS 2 po qd x 1 day, then 1 po qd x 4 days AZITHROMYCIN 250 MG TABS 8626012 AZITHROMYCIN Inactiv e MEDROL (REYNA) 4 MG TABS 6 tabs on day 1, 5 tabs on d ay 2, 4 tabs on day 3, 3 tabs on day 4, 2 tabs on day 5, 1 tab on day 6 MEDROL (REYNA) 4 MG TABS METHYLPREDNISOLONE Inactive CHERATUSSIN AC 100-10 MG/5ML SYRP 5ml po q6hr PRN Cough CHERATUSSIN AC 100-10 MG/5ML SYRP 482366 GUAIFENESIN-CODEINE Inacti ve TRIAMCINOLONE ACETONIDE 0.1 % CREA apply three times daily prn r beatrice TRIAMCINOLONE ACETONIDE 0.1 % CREA 8628999 TRIAMCINOLONE ACETONIDE Inactive AZITHROMYCIN 250 MG TABS 2 po qd x 1 day, then 1 po qd x 4 days AZITHROMYCIN 250 MG TABS 2257017 AZITHROMYCIN Inactiv e MEDROL (REYNA) 4 MG [...] days 20 13/03/08 AMOXICILLIN 500 MG CAP 735353 AMOXICILLIN Inactive AMOXICILLIN 500 MG CAP 1 tab by mouth 3 times daily x 10 days 20 14/04/28 AMOXICILLIN 500 MG CAP 762305 AMOXICILLIN Inactive ZITHROMAX 250 MG TAB 2 po today, then 1 po q days 2-5 ZITHROMAX 250 MG TAB 4350723 AZITHROMYCIN Inactive AUGMENTIN 875-125 MG TAB 1 po BID x 10 days AUGMENTIN 875- 125 MG TAB 631916 AMOXICILLIN-POT CLAVULANATE Inactive ZITHROMAX Z-REYNA 250 MG TABS 2 today, then 1 daily for 4 days 201 08/07/20 ZITHROMAX Z-REYNA 250 MG TABS 4164661 AZITHROMYCIN Inac tive ZITHROMAX 250 MG TAB 2 po today, then 1 po q days 2-5 ZITHROMAX 250 MG TAB 9281925 AZITHROMYCIN Inactive ZITHROMAX Z-REYNA 250 MG TABS 2 today, then 1 daily for 4 days 201 08/30/03 ZITHROMAX Z-REYNA 250 MG TABS 7295889 AZITHROMYCIN Inac tive Vital Signs Date Name [...] Measured Encounters Code Encounter Date Provider Facility CPT-34701 Level 3 Est. Patient 18:16:00 MOVIE OPERATOR Blaine HERNANDEZ [facility] CPT-85439 Level 3 Est. Patient 09:45:49 MOVIE OPERATOR Carlton rich MD [facility] CPT-48831 Level 3 Est. Patient 13:19:20 CDT Carlton rich MD [facility] CPT-32824 Level 3 Est. Patient 13:06:43 CDT Ridge tam DO [facility] CPT-08586 Level 3 Est. Patient 10:03:07 CDT Perez Mora MD [facility]-90197 Level 3 Est. Patient 19:50:35 MOVIE OPERATOR Carlton rich MD [facility] CPT-04630 Level 4 Est. Patient 18:05:01 MOVIE OPERATOR Carlton rich MD [facility]-63626 Level 3 Est. Patient 10:45:55 MOVIE OPERATOR Hugo Restrepo MD [facility] CPT-08046 Level 3 Est. Patient 14:12:49 CDT Griffin HERNANDEZ [facility] CPT-71474 Level 3 Est. Patient 17:37:24 CDT Carlton rich MD [facility] CPT-19587 Level 3 Est. Patient 16:51:54 CDT Carlton rich MD [facility] CPT-91315 Level 3 Est. Patient 12:18:11 CDT Hugo Restrepo MD [facility] CPT-24241 Level 3 Est. Patient 11:30:25 CDT Marcy crisostomo MD PhD [facility] CPT-02705 Level 3 Est. Patient 12:00:47 MOVIE OPERATOR Carlton rich MD [facility] CPT-87881 Level 3 Est. Patient 16:31:06 MOVIE OPERATOR Carlton rich MD [facility] CPT-82956 Level 3 Est. Patient 16:23:24 MOVIE OPERATOR Ridge tam DO [facility] CPT-17251 Level 3 Est. Patient 12:34:12 CDT Carlton rich MD [facility] CPT-29174 Level 2 Est. Patient 15:43:33 CDT Robi armstrong MD [facility] CPT-05133 Level 4 Est. Patient 14:04:44 CDT Carlton rich MD [facility] CPT-82818 Level 3 Est. Patient 05:47:59 CDT Ridge tam DO [facility] CPT-94974 Level 3 Est. Patient 13:12:53 MOVIE OPERATOR Carlton rich MD [facility] CPT-44200 Level 3 Est. Patient 14:26:53 CDT Hugo Restrepo MD [facility] Procedures Code Procedure Name Date Entry Date Standard Desc ription CPT-45739 Hip bilat min 2V w AP pelvis 13:16:20 CDT 2 CPT-86134 Pelvis only 13:07:33 CDT CPT-20557 Spec Collection and Handling Fee 11:25:12 C DT CPT-08078 Fluzone Quadrivalent Intramuscular Suspe nsion 0.5 ML 14:31:55 CDT CPT-56226 Abx/Therapy Injection 13:28:47 MOVIE OPERATOR CPT-J2930 Solu Medrol 125 mg (Methyl Prednisolone Sodium Succinate) 12:00:47 MOVIE OPERATOR CPT-93583 Venipuncture Draw Fee 11:33:31 CDT CPT-03956 EKG Trac and Interp 11:21:09 CDT CPT-82905 Chest 2V Frontal and Lat 11:21:09 CDT 12/15 CPT-17654 Venipuncture Draw Fee 08:02:34 CDT CPT-11038 Chest 2V Frontal and Lat 05:47:59 CDT 06/05
--- OUTSIDE RECORDS SUMMARY | 2019-10-08 08:37 | XMS REPORT | Clinical Summary ---
[...] PhD CHEST WALL PAIN, ACUTE ICD-786.52 Inactive iLv De La Rosa MD PhD PNEUMONIA ICD-486 [...] MG ORAL TABLET 1 po qd ASPIRIN [id number] Active Carlton Hu MD Active PREDNISONE 20 MG ORAL TABLET 1 tab twice daily for 3 d ay, then one daily for three days PREDNISONE 62979941071 No Longer Active Carlton Hu MD Active AUGMENTIN 875-125 MG ORAL TABLET 1 po BID x 10 days 20 16/03/22 AMOXICILLIN-POT CLAVULANATE 33877973563 No Longer Active Elise Whitmore APRN Active TERBINAFINE HCL 250 MG ORAL TABLET 1 qDay for nail fungus 7 TERBINAFINE HCL 63894730644 No Longer Active Carlton Hu MD A ctive TUSSIONEX PENNKINETIC ER 10-8 MG/5ML ORAL SUSPENSION E XTENDED RELEASE 5ml po q12hr PRN Cough HYDROCOD POLST-CHLORPHEN POLST 85597978644 Active Carlton Hu MD Active AMOXICILLIN 500 MG ORAL CAPSULE 1 cap by mouth three times a day AMOXICILLIN 18951985835 No Longer Active Carlton Hu MD Active ELMIRON 100 MG ORAL CAPSULE 2 tablets in the am and 1 tablet at hs PENTOSAN POLYSULFATE SODIUM 15919139368 No Longer Active Robert Hu MD Active MUCINEX D 60-600 MG ORAL TABLET EXTENDED RELEASE 12 HOUR 1 t ab po q am PSEUDOEPHEDRINE-GUAIFENESIN 66438684345 No Longer Act nael Carlton Hu MD Active MUCINEX DM MAXIMUM STRENGTH 60-1200 MG ORAL TABLET EXT ENDED RELEASE 12 HOUR 1 tab po q am DEXTROMETHORPHAN-GUAIFENESIN 13025111496 No Longer Active Carlton Hu MD Active TUSSIONEX PENNKINETIC ER 10-8 MG/5ML ORAL SUSPENSION E XTENDED RELEASE 5ml po q12hr PRN Cough HYDROCOD POLST-CHLORPHEN POLST 5 8110283399 No Longer Active Carlton Hu MD Active POTASSIUM CHLORIDE ER 20 MEQ ORAL TABLET EXTENDED RELE ASE Take 1 by mouth 4 times daily for 7 days POTASSIUM CHLORIDE 73766455764 No Longer Active Carlton Hu MD Active ZITHROMAX 250 MG ORAL TABLET 2 po today, then 1 po q days 2-5 20 14/09/04 AZITHROMYCIN 10252772634 No Longer Active Elise Whitmore APRN Active TUSSIONEX PENNKINETIC ER 10-8 MG/5ML ORAL SUSPENSION E XTENDED RELEASE 5 ml twice a day as needed for cough HYDROCOD POLST-CHLORPH EN POLST 50921474167 No Longer Active Elise Whitmore APRN Active MONTELUKAST SODIUM 10 MG ORAL TABLET 1 po daily for Allergy MONTELUKAST SODIUM 82440547022 Active Carlton Hu MD Ac tive TUSSIONEX PENNKINETIC ER 10-8 MG/5ML ORAL SUSPENSION E XTENDED RELEASE 5ml po q12hr PRN Cough HYDROCOD POLST-CHLORPHEN POLST 5 4380493728 No Longer Active Hugo Restrepo MD Active GABAPENTIN 100 MG ORAL CAPSULE 1 po BID for fibromyalgia GABAPENTIN 96425341747 Active Carlton Hu MD Active LYRICA 100 MG ORAL CAPSULE Take 1 tab po BID for fibromyalgia 20 11/08/21 PREGABALIN 75886394017 No Longer Active Elise Whitmore APRN Active PROAIR HFA 108 (90 Base) MCG/ACT INHALATION AEROSOL SO LUTION 2 puffs four times a day as needed ALBUTEROL SULFATE 19013184274 Active Lyndsay Whitmore APRN Active PREDNISONE 20 MG ORAL TABLET 2 tabs daily for 3 days, 1 tab daily for 3 days, 1/2 tab daily for 2 days PREDNISONE 56853219469 No Longer Active Jillina Gege KHAN Active TUSSIONEX PENNKINETIC ER 10-8 MG/5ML ORAL SUSPENSION E XTENDED RELEASE 5 mL PO q 12 hrs PRN cough HYDROCOD POLST-CHLORPHEN POLST 957073 36216 No Longer Active Jillina Frazell MONOLOGIST Active FLUTICASONE PROPIONATE 50 MCG/ACT NASAL SUSPENSION 2 s prays each nostril daily until bottle is empty FLUTICASONE PROPIONATE 157986103 99 No Longer Active Jillina Frazell MONOLOGIST Active ASMANEX 60 METERED DOSES 220 MCG/INH INHALATION AEROSO L POWDER BREATH ACTIVATED 1 puff bid with rinse after MOMETASONE FUROATE 3975003 4102 No Longer Active Astridina Gege MONOLOGIST Active ZITHROMAX Z-REYNA 250 MG ORAL TABLET 2 today, then 1 daily for 4 d ays AZITHROMYCIN 43513159998 No Longer Active Elise Whitmore APRN Active TUSSIONEX PENNKINETIC ER 10-8 MG/5ML ORAL SUSPENSION E XTENDED RELEASE 5ml po q12hr PRN Cough HYDROCOD POLST-CHLORPHEN POLST 5 7854104942 No Longer Active Elise Whitmore APRN Active PREDNISONE 20 MG ORAL TABLET 2 tabs daily for 3 days, 1 tab daily for 3 days, 1/2 tab daily for 2 days PREDNISONE 76305147820 No Longer Active Diya Guerrerol MONOLOGIST Active AMOXICILLIN 500 MG ORAL CAPSULE 2 po BID x 10 days 201 09/29/08 AMOXICILLIN 57273445513 No Longer Active Diya De Guzman APRN Act nael SINGULAIR 10 MG ORAL TABLET 1 po qday for allergies 20 14/01/12 MONTELUKAST SODIUM 36446437745 No Longer Active Carlton Hu MD Active LEVAQUIN 500 MG ORAL TABLET 1 tablet by mouth daily 20 13/09/24 LEVOFLOXACIN 70952846227 No Longer Active Carlton Hu MD Acti ve FLUTICASONE PROPIONATE 50 MCG/ACT NASAL SUSPENSION 2 s prays each nostril daily for 2 weeks, then 1 spray each nostril daily. FLUTICASONE PROPIONATE 76430147718 Active Elise Whitmore APRN Active ZITHROMAX 250 MG ORAL TABLET 2 po today, then 1 po q days 2-5 20 13/08/10 AZITHROMYCIN 17467771835 No Longer Active Elise Whitmore APRN Active XANAX 0.5 MG ORAL TABLET one tablet by mouth daily prn anxiety 2015 ALPRAZOLAM 35394837459 Active Carlton Hu MD Active CYMBALTA 30 MG ORAL CAPSULE DELAYED RELEASE PARTICLES 1 cap by mouth daily for depression DULOXETINE HCL 56402068958 Active Carlton beltrán MD Active CEFDINIR 300 MG ORAL CAPSULE 1 po BID x 10 days CEFDINIR 79199439503 No Longer Active Carlton Hu MD Active ZOCOR 40 MG ORAL TABLET 1 tab by mouth daily SI MVASTATIN 55166840791 No Longer Active Carlton Hu MD Active CYCLOBENZAPRINE HCL 10 MG ORAL TABLET 1 tablet by mouth BID prn had pain CYCLOBENZAPRINE HCL 56164073272 No Longer Active Jayden Hu MD Active LEVOFLOXACIN 500 MG ORAL TABLET 1 tab PO daily x 10 days LEVOFLOXACIN 41345415094 No Longer Active Carlton Hu MD Acti ve PREDNISONE 20 MG ORAL TABLET 3 tab PO qd x 2d, 2 tab P O qd x 2d, 1 tab PO qd x 2d, 1/2 tab PO qd x 2d PREDNISONE 68906235408 No Lo nger Active Carlton Hu MD Active FLUTICASONE PROPIONATE 50 MCG/ACT NASAL SUSPENSION 1 t o 2 sprays each nostril daily FLUTICASONE PROPIONATE 52080934347 No Longer Ac tive Blaine HERNANDEZ Active CHERATUSSIN AC 100-10 MG/5ML ORAL SYRUP 1 tsp by mouth every 4 hours as needed for cough GUAIFENESIN-CODEINE 78315321483 No Longe r Active Blaine HERNANDEZ Active PROMETHAZINE-CODEINE 6.25-10 MG/5ML ORAL SYRUP 1 tsp b y mouth every 6 hours if needed for cough PROMETHAZINE-CODEINE 57996418294 No Longer Active Blaine HERNANDEZ Active CHERATUSSIN AC 100-10 MG/5ML ORAL SYRUP 1 tsp by mouth every 4 hours as needed for cough GUAIFENESIN-CODEINE 14980563589 No Longe r Active Blaine HERNANDEZ Active ZITHROMAX Z-REYNA 250 MG ORAL TABLET 2 today, then 1 daily for 4 d ays AZITHROMYCIN 93287751498 No Longer Active Columba Raida Act nael ZITHROMAX 250 MG ORAL TABLET 2 po today, then 1 po q days 2-5 20 14/03/21 AZITHROMYCIN 92001319357 No Longer Active Carlton Hu MD Active ZITHROMAX Z-REYNA 250 MG ORAL TABLET 2 today, then 1 daily for 4 d ays AZITHROMYCIN 37156209050 No Longer Active Columba Raida Act nael AUGMENTIN 875-125 MG ORAL TABLET 1 po BID x 10 days 13/01/20 AMOXICILLIN-POT CLAVULANATE 01417307489 No Longer Active Diya De Guzman APRN Active ZITHROMAX 250 MG ORAL TABLET 2 po today, then 1 po q days 2-5 20 12/08/14 AZITHROMYCIN 48007395276 No Longer Active Carlton Hu MD Active TRAMADOL HCL 50 MG ORAL TABLET 1 po tid with ES Tylenol TRAMADOL HCL 11682504688 Active Carlton Hu MD Active PREMARIN 0.625 MG ORAL TABLET TAKE 1 TAB BY MOUTH DAILY ESTROGENS CONJUGATED 63112070573 No Longer Active Ridge Bess DO A ctive CYMBALTA 30 MG ORAL CAPSULE DELAYED RELEASE PARTICLES 1 cap by mouth daily DULOXETINE HCL 25785775860 No Longer Active Ridge tam DO Active AMOXICILLIN 500 MG ORAL CAPSULE 1 tab by mouth 3 times daily x 10 days AMOXICILLIN 82680722409 No Longer Active Carlton bustamante MD Active AMOXICILLIN 500 MG ORAL CAPSULE 1 tab by mouth 3 times daily x 10 days AMOXICILLIN 95788696022 No Longer Active Carlton bustamante MD Active PROMETHAZINE-CODEINE 6.25-10 MG/5ML ORAL SYRUP 1 tsp b y mouth every 8 hours prn cough PROMETHAZINE-CODEINE 46409250943 No Longer Acti ve Carlton Hu MD Active MEDROL 4 MG ORAL TABLET THERAPY PACK 6 pills x 1 day, then 5 pills x 1 day then 4 pills x 1 day, then 3 pills x 1 day, then 2 pills x 1 day, then 1 pill x 1 day, then stop METHYLPREDNISOLONE 85696635830 No Long er Active Perez Mora MD Active AZITHROMYCIN 250 MG ORAL TABLET 2 po qd x 1 day, then 1 po q d x 4 days AZITHROMYCIN 41485611627 No Longer Active Perez Ambriz MD Active SYMBICORT 160-4.5 MCG/ACT INHALATION AEROSOL 2 puffs bid wit h rinse after BUDESONIDE-FORMOTEROL FUMARATE 09812720950 N o Longer Active Perez Mora MD Active LYRICA 75 MG ORAL CAPSULE TAKE 1 CAPSULE BY MOUTH TWICE DAILY PREGABALIN 87156335878 No Longer Active Carlton Hu MD Acti ve TOPAMAX 25 MG ORAL TABLET 1 qHS x 1 week, then 1 BID x 1 week, then 1 qAM and 2 qHS x 1 week, then 2 BID (migraine prevention) T OPIRAMATE 70690032295 No Longer Active Jerica FUENTES Active TOPAMAX 50 MG ORAL TABLET take 1 tab po BID for migraines. 07/02 TOPIRAMATE 77578105725 No Longer Active Jericacatrachita FUENTES Active TOPAMAX 100 MG ORAL TABLET Take 1 tablet po bid TO PIRAMATE 44425583121 Active Carlton Hu MD Active TRIAMCINOLONE ACETONIDE 0.1 % EXTERNAL CREAM apply three roger es daily prn rash TRIAMCINOLONE ACETONIDE 70275826688 No Longer Active Carlton Hu MD Active PAXIL 40 MG ORAL TABLET take 1 tab po qday for depression 0 PAROXETINE HCL 87415274666 Active Carlton Hu MD Active CHERATUSSIN AC 100-10 MG/5ML ORAL SYRUP 5ml po q6hr PRN Cough 20 13/04/14 GUAIFENESIN-CODEINE 14964768566 No Longer Active Carlton Hu MD Active MEDROL 4 MG ORAL TABLET THERAPY PACK 6 tabs on day 1, 5 tabs on day 2, 4 tabs on day 3, 3 tabs on day 4, 2 tabs on day 5, 1 tab on day 6 2013 METHYLPREDNISOLONE 88461421620 No Longer Active Perez Mora MD Active AZITHROMYCIN 250 MG ORAL TABLET 2 po qd x 1 day, then 1 po q d x 4 days AZITHROMYCIN 23300380374 No Longer Active Perez Ambriz MD Active PROPRANOLOL HCL 60 MG ORAL TABLET 1 PO Q D PROPRANOLOL HCL 74750907491 No Longer Active Perez Mora MD Activ e CHERATUSSIN AC 100-10 MG/5ML ORAL SYRUP take one tsp po Q 6h ours prn cough GUAIFENESIN-CODEINE 86788381027 No Longer Active Zia Mora MD Active AUGMENTIN 875-125 MG ORAL TABLET 1 tab by mouth twice daily with food AMOXICILLIN-POT CLAVULANATE 14074760352 No Longer Act nael Perez Mora MD Active CHERATUSSIN AC 100-10 MG/5ML ORAL SYRUP 1 tsp by mouth every 4 hours as needed for cough GUAIFENESIN-CODEINE 22512766949 No Longe r Active Hugo Restrepo MD Active ACETAMINOPHEN-CODEINE #3 300-30 MG ORAL TABLET 1 PO Q 4-6 HRS CO N PAIN ACETAMINOPHEN-CODEINE 57723409191 No Longer Active Hugo Restrepo MD Active LEVAQUIN 500 MG ORAL TABLET take one po QD LEVO FLOXACIN 14904563782 No Longer Active Griffin HERNANDEZ Active PREDNISONE 20 MG ORAL TABLET Take 3 tabs daily for 3 d ays, 2 tabs daily for 3 days, 1 tab daily for 3 days, 1/2 tab daily for 3 days 11/07 PREDNISONE 98339323853 No Longer Active Carlton Hu MD Acti ve AVELOX 400 MG ORAL TABLET 1 tab by mouth daily MOXIFLOXACIN HCL 06521989333 No Longer Active Carlton Hu MD Active CHERATUSSIN AC 100-10 MG/5ML ORAL SYRUP 1 tsp by mouth every 4 hours as needed for cough GUAIFENESIN-CODEINE 10900808704 No Longe r Active Hugo Restrepo MD Active AVELOX 400 MG ORAL TABLET 1 tab by mouth daily MOXIFLOXACIN HCL 50106553849 No Longer Active Marcy De La Rosa MD PhD Active TERBINAFINE HCL 250 MG ORAL TABLET 1 qDay T ERBINAFINE HCL 29457048108 No Longer Active Marcy De La Rosa MD PhD Active CHERATUSSIN AC 100-10 MG/5ML ORAL SYRUP 1 tsp by mouth every 4 hours as needed for cough GUAIFENESIN-CODEINE 71069194578 No Longe r Active Marcy De La Rosa MD PhD Active AVELOX 400 MG ORAL TABLET 1 tab by mouth daily MOXIFLOXACIN HCL 17652998611 No Longer Active Marcy De La Rosa MD PhD Active HYDROCODONE-ACETAMINOPHEN 5-325 MG ORAL TABLET 1 po q 6hr PRN co ugh HYDROCODONE-ACETAMINOPHEN 20928556945 No Longer Active Marcy De La Rosa MD PhD Active PREDNISONE 20 MG ORAL TABLET 2 tabs daily for 3 days, 1 tab daily for 3 days, 1/2 tab daily for 2 days PREDNISONE 57279578251 No Longer Active Carlton Hu MD Active CEFDINIR 300 MG ORAL CAPSULE by mouth twice a day 2011 CEFDINIR 17840247742 No Longer Active Carlton Hu MD Acti ve HYDROCHLOROTHIAZIDE 25 MG ORAL TABLET 1 TAB PO DAILY HYDROCHLOROTHIAZIDE 68560521692 Active ALFREDO Holly tive ACETAMINOPHEN-CODEINE #3 300-30 MG ORAL TABLET 1 tablet po q 4-6 hrs prn pain ACETAMINOPHEN-CODEINE 45788418514 No Longer Active Ridge Bess DO Active ZITHROMAX 250 MG ORAL TABLET 2 po today, then 1 po q days 2-5 20 03/07/07 AZITHROMYCIN 04446101819 No Longer Active Carlton Hu MD Active CHERATUSSIN AC 100-10 MG/5ML ORAL SYRUP take 1 tsp po q4-6 h ours prn cough GUAIFENESIN-CODEINE 20620849301 No Longer Active Jayden Hu MD Active ACETAMINOPHEN-CODEINE #3 300-30 MG ORAL TABLET 1 PO Q 4-6 HR PRN PAIN ACETAMINOPHEN-CODEINE 96241460104 No Longer Active Da raimundo Hu MD Active LORTAB 7.5-500 MG/15ML ORAL ELIXIR 7.5 ml po q 4 hour prn cough HYDROCODONE-ACETAMINOPHEN 33516376974 No Longer Active Carlton Hu MD Active PREDNISONE 20 MG ORAL TABLET 1 po bid 3 days, then 1 po q day 3 days PREDNISONE 76404022775 No Longer Active Carlton Hu MD Active CEFDINIR 300 MG ORAL CAPSULE by mouth twice a day 2011 CEFDINIR 57201772534 No Longer Active Carlton Hu MD Acti ve CEFDINIR 300 MG ORAL CAPSULE by mouth twice a day 2010 CEFDINIR 10965215036 No Longer Active Carlton Hu MD Acti ve CEFDINIR 300 MG ORAL CAPSULE by mouth twice a day 2010 CEFDINIR 63848921658 No Longer Active Carlton Hu MD Acti ve TESSALON PERLES 100 MG ORAL CAPSULE 1 tablet by mouth 3 times daily as needed for cough BENZONATATE 57860884783 No Longer Active Carlton Hu MD Active CEFDINIR 300 MG ORAL CAPSULE by mouth twice a day 2010 CEFDINIR 94158148710 No Longer Active Carlton Hu MD Acti ve ZITHROMAX Z-REYNA 250 MG ORAL TABLET 2 today, then 1 daily for 4 d ays AZITHROMYCIN 41653692142 No Longer Active Hugo Restrepo MD Active TESSALON PERLES 100 MG ORAL CAPSULE 1 tablet by mouth 3 times daily as needed for cough TESSALON PERLES 100 MG ORAL CAPSULE 27747 7 BENZONATATE Inactive PREDNISONE 20 MG ORAL TABLET 1 po bid 3 days, then 1 po q day 3 days PREDNISONE 20 MG ORAL TABLET 750458 PREDNISONE Greer ctive LORTAB 7.5-500 MG/15ML ORAL [...] cough CHERATUSSIN AC 100-10 MG/5ML ORAL SYRUP 399584 GUAIFENESIN-CODEINE Inactive ACETAMINOPHEN-CODEINE #3 300-30 MG ORAL TABLET 1 tablet po q 4-6 hrs prn pain ACETAMINOPHEN-CODEINE #3 300-30 MG ORAL TABLET ACETAMINOPHEN-CODEINE Inactive HYDROCODONE-ACETAMINOPHEN 5-325 MG ORAL TABLET 1 po q 6hr PRN co ugh HYDROCODONE-ACETAMINOPHEN 5-325 MG ORAL TABLET 931503 HYDROCODONE-ACETAMINOPHEN Inactive AVELOX 400 MG ORAL TABLET 1 tab by mouth daily AVELOX 400 MG ORAL TABLET 783675 MOXIFLOXACIN HCL Inactive CHERATUSSIN AC 100-10 MG/5ML ORAL SYRUP 1 tsp by mouth every 4 hours as needed for cough CHERATUSSIN AC 100-10 MG/5ML ORAL SYRUP 9 02961 GUAIFENESIN-CODEINE Inactive TERBINAFINE HCL 250 MG ORAL TABLET 1 qDay 07/08 TERBINAFINE HCL 250 MG ORAL TABLET 595233 TERBINAFINE HCL Inactive CHERATUSSIN AC 100-10 MG/5ML ORAL SYRUP 1 tsp by mouth every 4 hours as needed for cough CHERATUSSIN AC 100-10 MG/5ML ORAL SYRUP 9 92664 GUAIFENESIN-CODEINE Inactive ACETAMINOPHEN-CODEINE #3 300-30 MG ORAL TABLET 1 PO Q 4-6 HRS CO N PAIN ACETAMINOPHEN-CODEINE #3 300-30 MG ORAL TABLET ACETAMINOPHEN-CODEINE Inactive CHERATUSSIN AC 100-10 MG/5ML ORAL SYRUP 1 tsp by mouth every 4 hours as needed for cough CHERATUSSIN AC 100-10 MG/5ML ORAL SYRUP 9 47575 GUAIFENESIN-CODEINE Inactive AUGMENTIN 875-125 MG ORAL TABLET 1 tab by mouth twice daily with food AUGMENTIN 875-125 MG ORAL TABLET 047592 AMOXICIL MADELINE-POT CLAVULANATE Inactive CHERATUSSIN AC 100-10 MG/5ML ORAL SYRUP take one tsp po Q 6h ours prn cough CHERATUSSIN AC 100-10 MG/5ML ORAL SYRUP 572546 GUAIFENESIN-CODEINE Inactive PROPRANOLOL HCL 60 MG ORAL TABLET 1 PO Q D PROPRANOLOL HCL 60 MG ORAL TABLET 372143 PROPRANOLOL HCL Inactive TOPAMAX 50 MG ORAL TABLET take 1 tab po BID for migraines. 07/02 TOPAMAX 50 MG ORAL TABLET 789111 TOPIRAMATE Inacti ve TOPAMAX 25 MG ORAL TABLET 1 qHS x 1 week, then 1 BID x 1 week, then 1 qAM and 2 qHS x 1 week, then 2 BID (migraine prevention) TOPAMAX 25 MG ORAL TABLET 375425 TOPIRAMATE Inactive LYRICA 75 MG ORAL CAPSULE TAKE 1 CAPSULE BY MOUTH TWICE DAILY LYRICA 75 MG ORAL CAPSULE PREGABALIN Inactive SYMBICORT 160-4.5 MCG/ACT INHALATION AEROSOL 2 puffs bid wit h rinse after SYMBICORT 160-4.5 MCG/ACT INHALATION AEROSOL BUDESONIDE- FORMOTEROL FUMARATE Inactive PROMETHAZINE-CODEINE 6.25-10 MG/5ML ORAL SYRUP 1 tsp b y mouth every 8 hours prn cough PROMETHAZINE-CODEINE 6.25-10 MG/ 5ML ORAL SYRUP 345711 PROMETHAZINE-CODEINE Inactive CYMBALTA 30 MG ORAL CAPSULE DELAYED RELEASE PARTICLES 1 cap by mouth daily CYMBALTA 30 MG ORAL CAPSULE DELAYED RELE ASE PARTICLES 664227 DULOXETINE HCL Inactive PREMARIN 0.625 MG ORAL TABLET TAKE 1 TAB BY MOUTH DAILY PREMARIN 0.625 MG ORAL TABLET ESTROGENS CONJUGATED Inactive CHERATUSSIN AC 100-10 MG/5ML ORAL SYRUP 1 tsp by mouth every 4 hours as needed for cough CHERATUSSIN AC 100-10 MG/5ML ORAL SYRUP 9 01996 GUAIFENESIN-CODEINE Inactive PROMETHAZINE-CODEINE 6.25-10 MG/5ML ORAL SYRUP 1 tsp b y mouth every 6 hours if needed for cough PROMETHAZINE-CODEINE 6.25-10 MG/5ML ORAL SYRUP 590438 PROMETHAZINE-CODEINE Inactive CHERATUSSIN AC 100-10 MG/5ML ORAL SYRUP 1 tsp by mouth every 4 hours as needed for cough CHERATUSSIN AC 100-10 MG/5ML ORAL SYRUP 9 81497 GUAIFENESIN-CODEINE Inactive FLUTICASONE PROPIONATE 50 MCG/ACT NASAL SUSPENSION 1 t o 2 sprays each nostril daily FLUTICASONE PROPIONATE 50 MCG/AC T NASAL SUSPENSION 3574604 FLUTICASONE PROPIONATE Inactive PREDNISONE 20 MG ORAL TABLET 3 tab PO qd x 2d, 2 tab P O qd x 2d, 1 tab PO qd x 2d, 1/2 tab PO qd x 2d PREDNISONE 20 MG ORAL TAB LET 065630 PREDNISONE Inactive LEVOFLOXACIN 500 MG ORAL TABLET 1 tab PO daily x 10 days LEVOFLOXACIN 500 MG ORAL TABLET 770511 LEVOFLOXACIN Inactive CYCLOBENZAPRINE HCL 10 MG ORAL TABLET 1 tablet by mouth BID prn had pain CYCLOBENZAPRINE HCL 10 MG ORAL TABLET 089827 CYCLOBENZAPRINE HCL Inactive ZOCOR 40 MG ORAL TABLET 1 tab by mouth daily 4 ZOCOR 40 MG ORAL TABLET 462600 SIMVASTATIN Inactive TUSSIONEX PENNKINETIC ER 10-8 MG/5ML [...] FLUTICASONE PROPIO EFE 50 MCG/ACT NASAL SUSPENSION 0652934 FLUTICASONE PROPIONATE Inactive TUSSIONEX PENNKINETIC ER 10-8 [...] three days PREDNISONE 20 MG ORAL TABLET 761369 PREDNIS ONE Inactive ZITHROMAX Z-REYNA 250 MG ORAL TABLET 2 today, then 1 daily for 4 d ays ZITHROMAX Z-REYNA 250 MG ORAL TABLET 823925 AZITHROMYCIN Inactive CEFDINIR 300 MG ORAL CAPSULE [...] 20 03/07/07 ZITHROMAX 250 MG ORAL TABLET 494373 AZITHROMYCIN Greer ctive CEFDINIR 300 MG ORAL CAPSULE by mouth twice a day 2011 CEFDINIR 300 MG ORAL CAPSULE 136575 CEFDINIR Inactive PREDNISONE 20 MG ORAL TABLET 2 tabs daily for 3 days, 1 tab daily for 3 days, 1/2 tab daily for 2 days PREDNISONE 20 MG ORAL T ABLET 729072 PREDNISONE Inactive AVELOX 400 MG ORAL TABLET 1 tab by mouth daily AVELOX 400 MG ORAL TABLET 323400 MOXIFLOXACIN HCL Inactive AVELOX 400 MG ORAL TABLET 1 tab by mouth daily AVELOX 400 MG ORAL TABLET 823057 MOXIFLOXACIN HCL Inactive PREDNISONE 20 MG ORAL TABLET Take 3 tabs daily for 3 d ays, 2 tabs daily for 3 days, 1 tab daily for 3 days, 1/2 tab daily for 3 days 11/07 PREDNISONE 20 MG ORAL TABLET 898774 PREDNISONE Inactive LEVAQUIN 500 MG ORAL TABLET take one po QD LEVAQUIN 500 MG ORAL TABLET 203669 LEVOFLOXACIN Inactive AZITHROMYCIN 250 MG ORAL TABLET 2 po qd x 1 day, then 1 po q d x 4 days AZITHROMYCIN 250 MG ORAL TABLET 967676 AZITHROMY GIOVANNI Inactive MEDROL 4 MG ORAL TABLET THERAPY PACK 6 tabs on day 1, 5 tabs on day 2, 4 tabs on day 3, 3 tabs on day 4, 2 tabs on day 5, 1 tab on day 6 2013 MEDROL 4 MG ORAL TABLET THERAPY PACK 552225 METHYLPREDNISOLONE Greer ctive CHERATUSSIN AC 100-10 MG/5ML ORAL SYRUP 5ml po q6hr PRN Cough 20 13/04/14 CHERATUSSIN AC 100-10 MG/5ML ORAL SYRUP 262888 GUAIFENE SIN-CODEINE Inactive TRIAMCINOLONE ACETONIDE 0.1 % EXTERNAL CREAM apply three roger es daily prn rash TRIAMCINOLONE ACETONIDE 0.1 % EXTERNAL CREAM 101 4314 TRIAMCINOLONE ACETONIDE Inactive AZITHROMYCIN 250 MG ORAL TABLET 2 po qd x 1 day, then 1 po q d x 4 days AZITHROMYCIN 250 MG ORAL TABLET 146280 AZITHROMY GIOVANNI Inactive MEDROL 4 MG ORAL TABLET THERAPY PACK 6 pills x 1 day, then 5 pills x 1 day then 4 pills x 1 day, then 3 pills x 1 day, then 2 pills x 1 day, then 1 pill x 1 day, then stop MEDROL 4 MG ORAL TABLET THERAPY PACK 230892 METHYLPREDNISOLONE Inactive AMOXICILLIN 500 MG ORAL CAPSULE 1 tab by mouth 3 times daily x 10 days AMOXICILLIN 500 MG ORAL CAPSULE 390364 AMOXICILL IN Inactive AMOXICILLIN 500 MG ORAL CAPSULE 1 tab by mouth 3 times daily x 10 days AMOXICILLIN 500 MG ORAL CAPSULE 343978 AMOXICILL IN Inactive ZITHROMAX 250 MG ORAL TABLET 2 po today, then 1 po q days 2-5 20 12/08/14 ZITHROMAX 250 MG ORAL TABLET 482566 AZITHROMYCIN [place] ctive AUGMENTIN 875-125 MG ORAL TABLET 1 po BID x 10 days 20 13/01/20 AUGMENTIN 875-125 MG ORAL TABLET 370816 AMOXICILLIN-POT CLAVULANATE Inactive ZITHROMAX Z-REYNA 250 MG ORAL TABLET 2 today, then 1 daily for 4 d ays ZITHROMAX Z-REYNA 250 MG ORAL TABLET 578535 AZITHROMYCIN Inactive ZITHROMAX 250 MG ORAL TABLET 2 po today, then 1 po q days 2-5 20 14/03/21 ZITHROMAX 250 MG ORAL TABLET 246625 AZITHROMYCIN Greer ctive ZITHROMAX Z-REYNA 250 MG ORAL TABLET 2 today, then 1 daily for 4 d ays ZITHROMAX Z-REYNA 250 MG ORAL TABLET 561508 AZITHROMYCIN Inactive CEFDINIR 300 MG ORAL CAPSULE 1 po BID x 10 days 06/21 CEFDINIR 300 MG ORAL CAPSULE 397670 CEFDINIR Inactive ZITHROMAX 250 MG ORAL TABLET 2 po today, then 1 po q days 2-5 20 13/08/10 ZITHROMAX 250 MG ORAL TABLET 427942 AZITHROMYCIN Greer ctive LEVAQUIN 500 MG ORAL TABLET 1 tablet by mouth daily 13/09/24 LEVAQUIN 500 MG ORAL TABLET 754939 LEVOFLOXACIN Inactive SINGULAIR 10 MG ORAL TABLET 1 po qday for allergies 20 14/01/12 SINGULAIR 10 MG ORAL TABLET 890118 MONTELUKAST SODIUM Inactive AMOXICILLIN 500 MG ORAL CAPSULE 2 po BID x 10 days 201 09/29/08 AMOXICILLIN 500 MG ORAL CAPSULE 672766 AMOXICILLIN Inactive PREDNISONE 20 MG ORAL TABLET 2 tabs daily for 3 days, 1 tab daily for 3 days, 1/2 tab daily for 2 days PREDNISONE 20 MG ORAL T ABLET 333785 PREDNISONE Inactive ZITHROMAX Z-REYNA 250 MG ORAL TABLET 2 today, then 1 daily for 4 d ays ZITHROMAX Z-REYNA 250 MG ORAL TABLET 931515 AZITHROMYCIN Inactive PREDNISONE 20 MG ORAL TABLET 2 tabs daily for 3 days, 1 tab daily for 3 days, 1/2 tab daily for 2 days PREDNISONE 20 MG ORAL T ABLET 815563 PREDNISONE Inactive ZITHROMAX 250 MG ORAL TABLET 2 po today, then 1 po q days 2-5 20 14/09/04 ZITHROMAX 250 MG ORAL TABLET 125179 AZITHROMYCIN Greer ctive AMOXICILLIN 500 MG ORAL CAPSULE 1 cap by mouth three times a day AMOXICILLIN 500 MG ORAL CAPSULE 071530 AMOXICILLIN Inactive TERBINAFINE HCL 250 MG ORAL TABLET 1 qDay for nail fungus 7 TERBINAFINE HCL 250 MG ORAL TABLET 205387 TERBINAFINE HCL Inact nael AUGMENTIN 875-125 MG ORAL TABLET 1 po BID x 10 days 16/03/22 AUGMENTIN 875-125 MG ORAL TABLET 538142 AMOXICILLIN-POT CLAVULANATE Inactive Vital Signs Date Name [...] - Chem istry sodium, serum 132 mmol/L 656-201 3734/07/12 potassium, serum 2.7 mmol/L 3.5-5.2 chloride, serum 93 mmol/L 98-107 carbon dioxide, venous blood 30.8 mmol/L 21.0-32 .0 blood glucose 107 mg/dL 65-110 calcium, serum 9.3 mg/dL 8.5-10.1 urea nitrogen, blood 12 mg/dL 7-18 creatinine, serum 1.00 mg/dL 0.60-1.30 sodium, serum 142 mmol/L 673-158 0242/07/17 potassium, serum 4.2 mmol/L 3.5-5.2 chloride, serum 106 mmol/L 98-107 carbon dioxide, venous blood 29.9 mmol/L 21.0-32 .0 blood glucose 108 mg/dL 65-110 calcium, serum 9.1 mg/dL 8.5-10.1 urea nitrogen, blood 11 mg/dL 7-18 creatinine, serum 0.81 mg/dL 0.60-1.30 Lab Report: Rapid Strep - Lab Microbial identification kit, rapid strep method Negative Negative Encounters Code Encounter Date Provider Facility [id number] Level 4 Est. Patient 09:51:32 STATEMENT PROCESSOR Carlton rich MD [facility] CPT-93217 Level 3 Est. Patient 10:26:00 STATEMENT PROCESSOR Italo MONOLOGIST [facility] CPT-31569 Level 3 Est. Patient 13:35:41 STATEMENT PROCESSOR Carlton rich MD [facility] CPT-55572 Level 3 Est. Patient 10:03:52 STATEMENT PROCESSOR Carlton rich MD [facility] CPT-70415 Level 3 Est. Patient 12:17:50 CDT Hugo Restrepo MD [facility] CPT-16622 Level 3 Est. Patient 13:42:38 CDT Italo [facility] CPT-65522 Level 3 Est. Patient 13:23:51 CDT [facility]-78099 Level 3 Est. Patient 14:22:19 STATEMENT PROCESSOR Diya cobian [facility] CPT-72080 Level 3 Est. Patient 10:11:46 CDT Carlton rich MD [facility] CPT-73204 Level 3 Est. Patient 17:29:43 CDT Italo [facility] CPT-24549 Level 3 Est. Patient 11:58:06 CDT Italo [facility] CPT-83219 Level 4 Est. Patient 14:36:51 CDT Carlton rich MD [facility] CPT-79728 Level 3 Est. Patient 18:16:00 STATEMENT PROCESSOR Blaine HERNANDEZ [facility] CPT-35925 Level 3 Est. Patient 09:45:49 STATEMENT PROCESSOR Carlton rich MD [facility] CPT-73376 Level 3 Est. Patient 13:19:20 CDT Carlton rich MD [facility] CPT-25939 Level 3 Est. Patient 13:06:43 CDT Ridge tam DO [facility] CPT-62307 Level 3 Est. Patient 10:03:07 CDT Perez Mora MD [facility]-39382 Level 3 Est. Patient 19:50:35 STATEMENT PROCESSOR Carlton rich MD [facility]-83073 Level 4 Est. Patient 18:05:01 STATEMENT PROCESSOR Carlton rich MD [facility]-33894 Level 3 Est. Patient 10:45:55 STATEMENT PROCESSOR Hugo Restrepo MD [facility]-57131 Level 3 Est. Patient 14:12:49 CDT Griffin HERNANDEZ [facility] CPT-57204 Level 3 Est. Patient 17:37:24 CDT Carlton rich MD [facility]-46149 Level 3 Est. Patient 16:51:54 CDT Carlton rich MD [facility]-11539 Level 3 Est. Patient 12:18:11 CDT Hugo Restrepo MD [facility]-27586 Level 3 Est. Patient 11:30:25 CDT Marcy crisostomo MD, PhD [facility]-57658 Level 3 Est. Patient 12:00:47 STATEMENT PROCESSOR Carlton rich MD [facility]-99649 Level 3 Est. Patient 16:31:06 STATEMENT PROCESSOR Carlton rich MD [facility]-71481 Level 3 Est. Patient 16:23:24 STATEMENT PROCESSOR Ridge tam [facility]-34450 Level 3 Est. Patient 12:34:12 CDT Carlton rich MD [facility]-22632 Level 2 Est. Patient 15:43:33 CDT Robi armstrong MD [facility] CPT-21592 Level 4 Est. Patient 14:04:44 CDT Carlton rich MD [facility] CPT-84041 Level 3 Est. Patient 05:47:59 CDT Ridge tam DO [facility] CPT-63069 Level 3 Est. Patient 13:12:53 STATEMENT PROCESSOR Carlton rich MD [facility] CPT-04413 Level 3 Est. Patient 14:26:53 CDT Hugo [...] CPT-J1100 Decadron 6mg (Dexamethasone) 14:32:13 CDT 2 CPT-53872 Hip bilat min 2V w AP pelvis 13:16:20 CDT 2 CPT-72242 Pelvis only 13:07:33 CDT CPT-68170 Spec Collection and Handling Fee 11:25:12 C DT CPT-41703 Fluzone Quadrivalent Intramuscular Suspe nsion 0.5 ML 14:31:55 CDT CPT-26851 Abx/Therapy Injection 13:28:47 STATEMENT PROCESSOR CPT-J2930 Solu Medrol 125 mg (Methyl Prednisolone Sodium Succinate) 12:00:47 STATEMENT PROCESSOR CPT-54119 Venipuncture Draw Fee 11:33:31 CDT CPT-74175 EKG Trac and Interp 11:21:09 CDT CPT-65609 Chest 2V Frontal and Lat 11:21:09 CDT 12/15 CPT-55540 Venipuncture Draw Fee 08:02:34 CDT CPT-46626 Chest 2V Frontal and Lat 05:47:59 CDT 06/05
--- OUTSIDE RECORDS SUMMARY | 2019-10-08 08:37 | XMS REPORT | Clinical Summary ---
Author Author Caitlin, Juliana Martinez Organization [facility] Address Unknown Phone Unavailable Allergies, Adverse [...] sites Sinusitis 473.9 Active Diya De Guzman [employer] Unspecified sinusitis (chronic) Bronchitis-Acute 466.0 Active Carlton [...] tablet by mouth daily prn anxiety ALPRAZOLAM 47653452021 Active Carlton Hu MD Active CYMBALTA 30 MG CPEP 1 cap by mouth daily for depression DULOXETINE HCL 43582079529 Active Carlton Hu MD Active CEFDINIR 300 MG CAPS 1 po BID x 10 days CEFDINI R 89833422781 No Longer Active Carlton Hu MD Active ZOCOR 40 MG TAB 1 tab by mouth daily SIMVASTATI N 43482871726 No Longer Active Carlton uH MD Active CYCLOBENZAPRINE HCL 10 MG TABS 1 tablet by mouth BID prn had cherelle n CYCLOBENZAPRINE HCL 87729895366 No Longer Active Carlton Hu MD Active LEVOFLOXACIN 500 MG ORAL TABS 1 tab PO daily x 10 days LEVOFLOXACIN 59122632927 No Longer Active Carlton Hu MD Acti ve PREDNISONE 20 MG ORAL TABS 3 tab PO qd x 2d, 2 tab PO qd x 2d, 1 tab PO qd x 2d, 1/2 tab PO qd x 2d PREDNISONE 06296317747 No Longer Active Carlton Hu MD Active TUSSIONEX PENNKINETIC ER 10-8 MG/5ML ORAL LQCR 5 mL PO q 12 hrs PRN cough HYDROCOD POLST-CHLORPHEN POLST 10091993167 Active Carlton Hu MD Active FLUTICASONE PROPIONATE 50 MCG/ACT SUSP 1 to 2 sprays each no stril daily FLUTICASONE PROPIONATE 07875646747 No Longer Active T jaz HERNANDEZ Active CHERATUSSIN AC 100-10 MG/5ML SYRP 1 tsp by mouth every 4 hours as needed for cough GUAIFENESIN-CODEINE 90865028196 No Longer Activ e Blaine HERNANDEZ Active PROMETHAZINE-CODEINE 6.25-10 MG/5ML SYRP 1 tsp by mout h every 6 hours if needed for cough PROMETHAZINE-CODEINE 17865997330 No Long er Active Blaine HERNANDEZ Active CHERATUSSIN AC 100-10 MG/5ML SYRP 1 tsp by mouth every 4 hours as needed for cough GUAIFENESIN-CODEINE 58854253930 No Longer Activ Jorge Luis HERNANDEZ Active ZITHROMAX Z-REYNA 250 MG TABS 2 today, then 1 daily for 4 days 201 08/30/03 AZITHROMYCIN 42488944542 No Longer Active Columba Raida Act nael ZITHROMAX 250 MG TAB 2 po today, then 1 po q days 2-5 AZITHROMYCIN 90433367346 No Longer Active Carlton Hu MD Acti ve ZITHROMAX Z-REYNA 250 MG TABS 2 today, then 1 daily for 4 days 201 08/07/20 AZITHROMYCIN 36187831392 No Longer Active Columba Raida Act nael AUGMENTIN 875-125 MG TAB 1 po BID x 10 days AMOXICILLIN- POT CLAVULANATE 75291788373 No Longer Active Diya De Guzman APRN Active ZITHROMAX 250 MG TAB 2 po today, then 1 po q days 2-5 AZITHROMYCIN 61672891695 No Longer Active Carlton Hu MD Acti ve TRAMADOL HCL 50 MG TABS 1 po tid with ES Tylenol TRAMADOL HCL 89657936190 Active Carlton Hu MD Active PREMARIN 0.625 MG TABS TAKE 1 TAB BY MOUTH DAILY 07/25 ESTROGENS CONJUGATED 71243047408 No Longer Active Ridge Bess DO Active CYMBALTA 30 MG CPEP 1 cap by mouth daily DULOXE SNEHA HCL 46532871304 No Longer Active Ridge Bess DO Active AMOXICILLIN 500 MG CAP 1 tab by mouth 3 times daily x 10 days 20 14/04/28 AMOXICILLIN 81825227291 No Longer Active Carlton Hu MD Active AMOXICILLIN 500 MG CAP 1 tab by mouth 3 times daily x 10 days 20 13/03/08 AMOXICILLIN 72787235639 No Longer Active Carlton Hu MD Active PROMETHAZINE-CODEINE 6.25-10 MG/5ML SYRP 1 tsp by mouth ever y 8 hours prn cough PROMETHAZINE-CODEINE 01497982593 No Longer Active Robert Hu MD Active MEDROL (REYNA) 4 MG TABS 6 pills x 1 day, then 5 pill s x 1 day then 4 pills x 1 day, then 3 pills x 1 day, then 2 pills x 1 day, then 1 pill x 1 day, then stop METHYLPREDNISOLONE 81434249020 No Longer Active Parris Mora MD Active AZITHROMYCIN 250 MG TABS 2 po qd x 1 day, then 1 po qd x 4 days AZITHROMYCIN 50274700959 No Longer Active Perez Mora MD Active SYMBICORT 160-4.5 MCG/ACT AERO 2 puffs bid with rinse after 2011 BUDESONIDE-FORMOTEROL FUMARATE 30753821392 No Longer Active Perez Mora MD Active LYRICA 75 MG CAPS TAKE 1 CAPSULE BY MOUTH TWICE DAILY 2013 PREGABALIN 36856260116 No Longer Active Carlton Hu MD Active LYRICA 100 MG CAPS Take 1 tab po BID for fibromyalgia PREGABALIN 98351059786 Active Elise Whitmore APRN Active TOPAMAX 25 MG TABS 1 qHS x 1 week, then 1 BID x 1 week, then 1 qAM and 2 qHS x 1 week, then 2 BID (migraine prevention) TOPIRAMAT E 25618327232 No Longer Active Jerica Goeam RMA Active TOPAMAX 50 MG TABS take 1 tab po BID for migraines. 12/07/10 TOPIRAMATE 27847212185 No Longer Active Jerica Goeringer RMA Ac tive TOPAMAX 100 MG TABS Take 1 tablet po bid TOPIRAMATE 4999 8545529 Active Carlton Hu MD Active TRIAMCINOLONE ACETONIDE 0.1 % CREA apply three times daily prn r beatrice TRIAMCINOLONE ACETONIDE 60914856683 No Longer Active Carlton Hu MD Active PAXIL 40 MG TAB take 1 tab po qday for depression PAROXETINE HCL 94307723836 Active Elise Whitmore APRN Active CHERATUSSIN AC 100-10 MG/5ML SYRP 5ml po q6hr PRN Cough GUAIFENESIN-CODEINE 99850805621 No Longer Active Carlton Hu MD Active MEDROL (REYNA) 4 MG TABS 6 tabs on day 1, 5 tabs on d ay 2, 4 tabs on day 3, 3 tabs on day 4, 2 tabs on day 5, 1 tab on day 6 METHYLPREDNISOLONE 00404498734 No Longer Active Perez Mora MD Active AZITHROMYCIN 250 MG TABS 2 po qd x 1 day, then 1 po qd x 4 days AZITHROMYCIN 32894025542 No Longer Active Perez Mora MD Active PROPRANOLOL HCL 60 MG TABS 1 PO Q D PROPRANOL OL HCL 19860512132 No Longer Active Perez Mora MD Active CHERATUSSIN AC 100-10 MG/5ML SYRP take one tsp po Q 6hours prn c ough GUAIFENESIN-CODEINE 26563120630 No Longer Active Perez Means Active AUGMENTIN 875-125 MG TAB 1 tab by mouth twice daily with food 20 12/03/31 AMOXICILLIN-POT CLAVULANATE 13941071476 No Longer Active Chanel Mora MD Active CHERATUSSIN AC 100-10 MG/5ML SYRP 1 tsp by mouth every 4 hours as needed for cough GUAIFENESIN-CODEINE 48282783290 No Longer Activ e Hugo Restrepo MD Active ACETAMINOPHEN-CODEINE #3 300-30 MG TABS 1 PO Q 4-6 HRS PRN PAIN ACETAMINOPHEN-CODEINE 13663467547 No Longer Active Hugo Restrepo MD Active LEVAQUIN 500 MG TABS take one po QD LEVOFLOXACI N 32732988790 No Longer Active Griffin HERNANDEZ Active PREDNISONE 20 MG TAB Take 3 tabs daily for 3 days , 2 tabs daily for 3 days, 1 tab daily for 3 days, 1/2 tab daily for 3 days P REDNISONE 64860076587 No Longer Active Carlton Hu MD Active AVELOX 400 MG TABS 1 tab by mouth daily MOXIFLO XACIN HCL 57242750761 No Longer Active Carlton Hu MD Active CHERATUSSIN AC 100-10 MG/5ML SYRP 1 tsp by mouth every 4 hours as needed for cough GUAIFENESIN-CODEINE 76404814483 No Longer Activ e Hugo Restrepo MD Active AVELOX 400 MG TABS 1 tab by mouth daily MOXIFLO XACIN HCL 42605347316 No Longer Active Marcy De La Rosa MD PhD Active TERBINAFINE HCL 250 MG TABS 1 qDay TERBINAF INE HCL 47867483052 No Longer Active Marcy De La Rosa MD PhD Active CHERATUSSIN AC 100-10 MG/5ML SYRP 1 tsp by mouth every 4 hours as needed for cough GUAIFENESIN-CODEINE 96237280646 No Longer Activ e Marcy De La Rosa MD PhD Active AVELOX 400 MG TABS 1 tab by mouth daily MOXIFLO XACIN HCL 60452964194 No Longer Active Marcy De La Rosa MD PhD Active HYDROCODONE-ACETAMINOPHEN 5-325 MG TABS 1 po q 6hr PRN cough 201 05/09/16 HYDROCODONE-ACETAMINOPHEN 81097411689 No Longer Active Marcy De La Rosa MD PhD Active PREDNISONE 20 MG TAB 2 tabs daily for 3 days, 1 t ab daily for 3 days, 1/2 tab daily for 2 days PREDNISONE 54873472733 No Longer Active Carlton Hu MD Active CEFDINIR 300 MG CAPS by mouth twice a day CEFDI ODILIA 69544476299 No Longer Active Cartlon Hu MD Active HYDROCHLOROTHIAZIDE 25 MG TABS 1 TAB PO DAILY H YDROCHLOROTHIAZIDE 39014781124 Active Carlton Hu MD Active ACETAMINOPHEN-CODEINE #3 300-30 MG TABS 1 tablet po q 4-6hrs prn pain ACETAMINOPHEN-CODEINE 72091697966 No Longer Active Ridge Bess DO Active ZITHROMAX 250 MG TAB 2 po today, then 1 po q days 2-5 AZITHROMYCIN 81014473133 No Longer Active Carlton Hu MD Acti ve CHERATUSSIN AC 100-10 MG/5ML SYRP take 1 tsp po q4-6 hours prn c ough GUAIFENESIN-CODEINE 69943137187 No Longer Active Carlton Hu MD Active ACETAMINOPHEN-CODEINE #3 300-30 MG TABS 1 PO Q 4-6 HR PRN PAIN 2 ACETAMINOPHEN-CODEINE 54353078994 No Longer Active Carlton rich MD Active LORTAB 7.5-500 MG/15ML ELIX 7.5 ml po q 4 hour prn cough HYDROCODONE-ACETAMINOPHEN 43557225862 No Longer Active Carlton Hu MD Active PREDNISONE 20 MG TAB 1 po bid 3 days, then 1 po q day 3 days 201 05/03/07 PREDNISONE 51117260362 No Longer Active Carlton Hu MD Active ELMIRON 100 MG CAPS 2 tablets in the am and 1 tablet at hs PENTOSAN POLYSULFATE SODIUM 72684272410 Active Carlton Hu MD Ac tive CEFDINIR 300 MG CAPS by mouth twice a day CEFDI ODILIA 41391406806 No Longer Active Carlton Hu MD Active CEFDINIR 300 MG CAPS by mouth twice a day CEFDI ODILIA 19051201165 No Longer Active Carlton Hu MD Active CEFDINIR 300 MG CAPS by mouth twice a day CEFDI ODILIA 84495490991 No Longer Active Carlton Hu MD Active TESSALON PERLES 100 MG CAP 1 tablet by mouth 3 times daily a s needed for cough BENZONATATE 90440144864 No Longer Active Carlton bustamante MD Active CEFDINIR 300 MG CAPS by mouth twice a day CEFDI ODILIA 48677095460 No Longer Active Carlton Hu MD Active ZITHROMAX Z-REYNA 250 MG TABS 2 today, then 1 daily for 4 days 201 04/09/17 AZITHROMYCIN 16342069441 No Longer Active Hugo Restrepo MD Active TESSALON PERLES 100 MG CAP 1 tablet by mouth 3 times daily a s needed for cough TESSALON PERLES 100 MG CAP 374218 BENZONATATE I nactive PREDNISONE 20 MG TAB 1 po bid 3 days, then 1 po q day 3 days 201 05/03/07 PREDNISONE 20 MG TAB 316902 PREDNISONE Inactive LORTAB 7.5-500 MG/15ML ELIX 7.5 ml po q 4 hour prn cough LORTAB 7.5-500 MG/15ML ELIX HYDROCODONE-ACETAMINOPHEN Inacti ve ACETAMINOPHEN-CODEINE #3 300-30 MG TABS 1 PO Q 4-6 HR PRN PAIN 2 ACETAMINOPHEN-CODEINE #3 300-30 MG TABS 838126 ACETAMIN OPHEN-CODEINE Inactive CHERATUSSIN AC 100-10 MG/5ML SYRP take 1 tsp po q4-6 hours prn c ough CHERATUSSIN AC 100-10 MG/5ML SYRP 738847 GUAIFENESIN-CO DEINE Inactive ACETAMINOPHEN-CODEINE #3 300-30 MG TABS 1 tablet po q 4-6hrs prn pain ACETAMINOPHEN-CODEINE #3 300-30 MG TABS 267919 ACETAMIN OPHEN-CODEINE Inactive HYDROCODONE-ACETAMINOPHEN 5-325 MG TABS 1 po q 6hr PRN cough 201 05/09/16 HYDROCODONE-ACETAMINOPHEN 5-325 MG TABS 115193 HYDROCODONE-ACETAMINOPHEN Inactive AVELOX 400 MG TABS 1 tab by mouth daily A VELOX 400 MG TABS 700318 MOXIFLOXACIN HCL Inactive CHERATUSSIN AC 100-10 MG/5ML SYRP 1 tsp by mouth every 4 hours as needed for cough CHERATUSSIN AC 100-10 MG/5ML SYRP 593011 GUAIFENESIN-CODEINE Inactive TERBINAFINE HCL 250 MG TABS 1 qDay TERBINAFINE HCL 250 MG TABS 679963 TERBINAFINE HCL Inactive CHERATUSSIN AC 100-10 MG/5ML SYRP 1 tsp by mouth every 4 hours as needed for cough CHERATUSSIN AC 100-10 MG/5ML SYRP 397606 GUAIFENESIN-CODEINE Inactive ACETAMINOPHEN-CODEINE #3 300-30 MG TABS 1 PO Q 4-6 HRS PRN PAIN ACETAMINOPHEN-CODEINE #3 300-30 MG TABS 857224 ACETAMINOPHEN-CODEIN E Inactive CHERATUSSIN AC 100-10 MG/5ML SYRP 1 tsp by mouth every 4 hours as needed for cough CHERATUSSIN AC 100-10 MG/5ML SYRP 285953 GUAIFENESIN-CODEINE Inactive AUGMENTIN 875-125 MG TAB 1 tab by mouth twice daily with food 20 12/03/31 AUGMENTIN 875-125 MG TAB 918422 AMOXICILLIN-POT CLAVULA EFE Inactive CHERATUSSIN AC 100-10 MG/5ML SYRP take one tsp po Q 6hours prn c ough CHERATUSSIN AC 100-10 MG/5ML SYRP 216109 GUAIFENESIN-CO DEINE Inactive PROPRANOLOL HCL 60 MG TABS 1 PO Q D P ROPRANOLOL HCL 60 MG TABS 185451 PROPRANOLOL HCL Inactive TOPAMAX 50 MG TABS take 1 tab po BID for migraines. 12/07/10 TOPAMAX 50 MG TABS 064131 TOPIRAMATE Inactive TOPAMAX 25 MG TABS 1 qHS x 1 week, then 1 BID x 1 week, then 1 qAM and 2 qHS x 1 week, then 2 BID (migraine prevention) TOPAMAX 2 5 MG TABS 751081 TOPIRAMATE Inactive LYRICA 75 MG CAPS TAKE 1 CAPSULE BY MOUTH TWICE DAILY LYRICA 75 MG CAPS PREGABALIN Inactive SYMBICORT 160-4.5 MCG/ACT AERO 2 puffs bid with rinse after 2011 SYMBICORT 160-4.5 MCG/ACT AERO BUDESONIDE-FORMOT SÁNCHEZ FUMARATE Inactive PROMETHAZINE-CODEINE 6.25-10 MG/5ML SYRP 1 tsp by mouth ever y 8 hours prn cough PROMETHAZINE-CODEINE 6.25-10 MG/5ML SYRP 867134 PROMETHAZINE-CODEINE Inactive CYMBALTA 30 MG CPEP 1 cap by mouth daily CYMBALTA 30 MG CPEP 553420 DULOXETINE HCL Inactive PREMARIN 0.625 MG TABS TAKE 1 TAB BY MOUTH DAILY 07/25 PREMARIN 0.625 MG TABS ESTROGENS CONJUGATED Inactive CHERATUSSIN AC 100-10 MG/5ML SYRP 1 tsp by mouth every 4 hours as needed for cough CHERATUSSIN AC 100-10 MG/5ML SYRP 420293 GUAIFENESIN-CODEINE Inactive PROMETHAZINE-CODEINE 6.25-10 MG/5ML SYRP 1 tsp by mout h every 6 hours if needed for cough PROMETHAZINE-CODEINE 6.25-10 MG/5ML SYRP 044512 PROMETHAZINE-CODEINE Inactive CHERATUSSIN AC 100-10 MG/5ML SYRP 1 tsp by mouth every 4 hours as needed for cough CHERATUSSIN AC 100-10 MG/5ML SYRP 882814 GUAIFENESIN-CODEINE Inactive FLUTICASONE PROPIONATE 50 MCG/ACT SUSP 1 to 2 sprays each no stril daily FLUTICASONE PROPIONATE 50 MCG/ACT SUSP 799413 FLUTICASONE PROPIONATE Inactive PREDNISONE 20 MG ORAL TABS 3 tab PO qd x 2d, 2 tab PO qd x 2d, 1 tab PO qd x 2d, 1/2 tab PO qd x 2d PREDNISONE 20 MG ORAL TABS 902306 PREDNISONE Inactive LEVOFLOXACIN 500 MG ORAL TABS 1 tab PO daily x 10 days LEVOFLOXACIN 500 MG ORAL TABS 356721 LEVOFLOXACIN Inactive CYCLOBENZAPRINE HCL 10 MG TABS 1 tablet by mouth BID prn had cherelle n CYCLOBENZAPRINE HCL 10 MG TABS 270582 CYCLOBENZAPRINE H CL Inactive ZOCOR 40 MG TAB 1 tab by mouth daily ZOCOR 40 M G TAB 655257 SIMVASTATIN Inactive ZITHROMAX Z-REYNA 250 MG TABS 2 today, then 1 daily for 4 days 201 04/09/17 ZITHROMAX Z-REYNA 250 MG TABS 3803888 AZITHROMYCIN Inac tive CEFDINIR 300 MG CAPS by mouth twice a day CEFDINIR 300 MG CAPS 20020704 CEFDINIR Inactive CEFDINIR 300 MG CAPS by mouth twice a day CEFDINIR 300 MG CAPS 20020704 CEFDINIR Inactive CEFDINIR 300 MG CAPS by mouth twice a day CEFDINIR 300 MG CAPS 800878 CEFDINIR Inactive CEFDINIR 300 MG CAPS by mouth twice a day CEFDINIR 300 MG CAPS 419003 CEFDINIR Inactive ZITHROMAX 250 MG TAB 2 po today, then 1 po q days 2-5 ZITHROMAX 250 MG TAB 4540986 AZITHROMYCIN Inactive CEFDINIR 300 MG CAPS by mouth twice a day CEFDINIR 300 MG CAPS 20020704 CEFDINIR Inactive PREDNISONE 20 MG TAB 2 tabs daily for 3 days, 1 t ab daily for 3 days, 1/2 tab daily for 2 days PREDNISONE 20 MG TAB 499923 PREDNISON E Inactive AVELOX 400 MG TABS 1 tab by mouth daily A VELOX 400 MG TABS 536317 MOXIFLOXACIN HCL Inactive AVELOX 400 MG TABS 1 tab by mouth daily A VELOX 400 MG TABS 341357 MOXIFLOXACIN HCL Inactive PREDNISONE 20 MG TAB Take 3 tabs daily for 3 days , 2 tabs daily for 3 days, 1 tab daily for 3 days, 1/2 tab daily for 3 days PREDNISONE 20 MG TAB 617091 PREDNISONE Inactive LEVAQUIN 500 MG TABS take one po QD LEVAQUIN 50 0 MG TABS 349887 LEVOFLOXACIN Inactive AZITHROMYCIN 250 MG TABS 2 po qd x 1 day, then 1 po qd x 4 days AZITHROMYCIN 250 MG TABS 2598497 AZITHROMYCIN Inactiv e MEDROL (REYNA) 4 MG TABS 6 tabs on day 1, 5 tabs on d ay 2, 4 tabs on day 3, 3 tabs on day 4, 2 tabs on day 5, 1 tab on day 6 MEDROL (REYNA) 4 MG TABS METHYLPREDNISOLONE Inactive CHERATUSSIN AC 100-10 MG/5ML SYRP 5ml po q6hr PRN Cough CHERATUSSIN AC 100-10 MG/5ML SYRP 602890 GUAIFENESIN-CODEINE Inacti ve TRIAMCINOLONE ACETONIDE 0.1 % CREA apply three times daily prn r beatrice TRIAMCINOLONE ACETONIDE 0.1 % CREA 5682955 TRIAMCINOLONE ACETONIDE Inactive AZITHROMYCIN 250 MG TABS 2 po qd x 1 day, then 1 po qd x 4 days AZITHROMYCIN 250 MG TABS 1699073 AZITHROMYCIN Inactiv e MEDROL (REYNA) 4 MG [...] days 20 13/03/08 AMOXICILLIN 500 MG CAP 614516 AMOXICILLIN Inactive AMOXICILLIN 500 MG CAP 1 tab by mouth 3 times daily x 10 days 20 14/04/28 AMOXICILLIN 500 MG CAP 789975 AMOXICILLIN Inactive ZITHROMAX 250 MG TAB 2 po today, then 1 po q days 2-5 ZITHROMAX 250 MG TAB 5421068 AZITHROMYCIN Inactive AUGMENTIN 875-125 MG TAB 1 po BID x 10 days AUGMENTIN 875- 125 MG TAB 778772 AMOXICILLIN-POT CLAVULANATE Inactive ZITHROMAX Z-REYNA 250 MG TABS 2 today, then 1 daily for 4 days 201 08/07/20 ZITHROMAX Z-REYNA 250 MG TABS 2338473 AZITHROMYCIN Inac tive ZITHROMAX 250 MG TAB 2 po today, then 1 po q days 2-5 ZITHROMAX 250 MG TAB 0496071 AZITHROMYCIN Inactive ZITHROMAX Z-REYNA 250 MG TABS 2 today, then 1 daily for 4 days 201 08/30/03 ZITHROMAX Z-REYNA 250 MG TABS 7695113 AZITHROMYCIN Inac tive CEFDINIR 300 MG CAPS 1 po BID x 10 days C EFDINIR 300 MG CAPS 560084 CEFDINIR Inactive Vital Signs Date Name Value Unit Range Description blood pressure, diastolic - 8462-4 76 mm[Hg] BP srinivasan blood pressure, systolic - 8480-6 119 mm[Hg] BP sys pulse rate E&M - 8867-4 92 /min H eart rate temperature E&M 98.6 [degF] Body temp erature weight E&M - 3141-9 138.5 [lb_av] Weigh t Measured blood pressure, diastolic - 8462-4 74 mm[Hg] BP srinivasna blood pressure, systolic - 8480-6 104 mm[Hg] [...] Measured Encounters Code Encounter Date Provider Facility CPT-40980 Level 4 Est. Patient 14:36:51 CDT Carlton rich MD [facility] CPT-35149 Level 3 Est. Patient 18:16:00 PARQUETRY LAYER Blaine HERNANDEZ [facility] CPT-08053 Level 3 Est. Patient 09:45:49 PARQUETRY LAYER Carlton rich MD [facility] CPT-01578 Level 3 Est. Patient 13:19:20 CDT Carlton rich MD [facility] CPT-50414 Level 3 Est. Patient 13:06:43 CDT Ridge tam DO [facility] CPT-15564 Level 3 Est. Patient 10:03:07 CDT Perez Mora MD [facility] CPT-68980 Level 3 Est. Patient 19:50:35 PARQUETRY LAYER Carlton rich MD [facility] CPT-74802 Level 4 Est. Patient 18:05:01 PARQUETRY LAYER Carlton rich MD [facility] CPT-77430 Level 3 Est. Patient 10:45:55 PARQUETRY LAYER Hugo Restrepo MD [facility] CPT-73466 Level 3 Est. Patient 14:12:49 CDT Griffin HERNANDEZ [facility] CPT-60523 Level 3 Est. Patient 17:37:24 CDT Carlton rich MD [facility] CPT-30648 Level 3 Est. Patient 16:51:54 CDT Carlton rich MD [facility] CPT-79282 Level 3 Est. Patient 12:18:11 CDT Hugo Restrepo MD [facility] CPT-67442 Level 3 Est. Patient 11:30:25 CDT Marcy crisostomo MD PhD [facility] CPT-62038 Level 3 Est. Patient 12:00:47 PARQUETRY LAYER Carlton rich MD [facility] CPT-00002 Level 3 Est. Patient 16:31:06 PARQUETRY LAYER Carlton rich MD [facility] CPT-46675 Level 3 Est. Patient 16:23:24 PARQUETRY LAYER Ridge tam DO [facility] CPT-45463 Level 3 Est. Patient 12:34:12 CDT Carlton rich MD [facility] CPT-56900 Level 2 Est. Patient 15:43:33 CDT Robi armstrong MD [facility] CPT-59572 Level 4 Est. Patient 14:04:44 CDT Carlton rich MD [facility] CPT-10080 Level 3 Est. Patient 05:47:59 CDT Ridge tam DO [facility] CPT-98861 Level 3 Est. Patient 13:12:53 PARQUETRY LAYER Carlton rich MD [facility] CPT-02977 Level 3 Est. Patient 14:26:53 CDT Hugo Restrepo MD [facility] Procedures Code Procedure Name Date Entry Date Standard Desc ription CPT-20159 Hip bilat min 2V w AP pelvis 13:16:20 CDT 2 CPT-11579 Pelvis only 13:07:33 CDT CPT-34159 Spec Collection and Handling Fee 11:25:12 C DT CPT-22287 Fluzone Quadrivalent Intramuscular Suspe nsion 0.5 ML 14:31:55 CDT CPT-20830 Abx/Therapy Injection 13:28:47 PARQUETRY LAYER CPT-J2930 Solu Medrol 125 mg (Methyl Prednisolone Sodium Succinate) 12:00:47 PARQUETRY LAYER CPT-82683 Venipuncture Draw Fee 11:33:31 CDT CPT-76437 EKG Trac and Interp 11:21:09 CDT CPT-05998 Chest 2V Frontal and Lat 11:21:09 CDT 12/15 CPT-56089 Venipuncture Draw Fee 08:02:34 CDT CPT-63924 Chest 2V Frontal and Lat 05:47:59 CDT 06/05
--- OUTSIDE RECORDS SUMMARY | 2019-10-08 08:38 | XMS REPORT | Clinical Summary ---
Author Author Caitlin, Juliana Martinez Organization [employer] [facility] Address Unknown Phone Unavailable Allergies, Adverse [...] po daily for Allergy 6 MONTELUKAST SODIUM [id number] Active ALFREDO Holly Act nael TUSSIONEX PENNKINETIC ER 10-8 MG/5ML LQCR 5 ml twice a day a s needed for cough HYDROCOD POLST-CHLORPHEN POLST 77287161230 Active Hugo Restrepo MD Active TUSSIONEX PENNKINETIC ER 10-8 MG/5ML LQCR 5ml po q12hr PRN Cough HYDROCOD POLST-CHLORPHEN POLST 02245611383 No Longer Active Hugo Restrepo MD Active GABAPENTIN 100 MG CAPS 1 po BID for fibromyalgia GABAPENTIN 28454665051 Active Elise Whitmore APRN Active LYRICA 100 MG CAPS Take 1 tab po BID for fibromyalgia PREGABALIN 91508375129 No Longer Active Elise Whitmore APRN Acti ve PROAIR HFA 108 (90 BASE) MCG/ACT AERS 2 puffs four times a d ay as needed ALBUTEROL SULFATE 64936637649 Active Diya De Guzman APR N Active MUCINEX DM MAXIMUM STRENGTH 60-1200 MG [id number] 1 tab po q am 2016 DEXTROMETHORPHAN-GUAIFENESIN 33158079058 Active Diya De Guzman [employer] Active PREDNISONE 20 MG TAB 2 tabs daily for 3 days, 1 t ab daily for 3 days, 1/2 tab daily for 2 days PREDNISONE 49836847136 No Longer Active Diya De Guzman [employer] Active TUSSIONEX PENNKINETIC ER 10-8 MG/5ML ORAL LQCR 5 mL PO q 12 hrs PRN cough HYDROCOD POLST-CHLORPHEN POLST 70367689459 No Longer Active Diya Guerrerol [employer] Active FLUTICASONE PROPIONATE 50 MCG/ACT SUSP 2 sprays each n ostril daily until bottle is empty FLUTICASONE PROPIONATE 94978056300 No Longer Ac tive Venullshakira Guerrerol [employer] Active ASMANEX 60 METERED DOSES 220 MCG/INH AEPB 1 puff bid with ri nse after MOMETASONE FUROATE 48686238887 No Longer Active Diya meneses [employer] Active ZITHROMAX Z-REYNA 250 MG TABS 2 today, then 1 daily for 4 days 201 09/29/14 AZITHROMYCIN 02404693743 No Longer Active Elise Whitmore APRN Active TUSSIONEX PENNKINETIC ER 10-8 MG/5ML LQCR 5ml po q12hr PRN Cough HYDROCOD POLST-CHLORPHEN POLST 40061962160 No Longer Active Elise Whitmore APRN Active MUCINEX D 60-600 MG [id number] 1 tab po q am PSEUDOEPHEDRINE-GUAIFENESIN 85738991268 Active Jillina Frazell [employer] Active PREDNISONE 20 MG TAB 2 tabs daily for 3 days, 1 t ab daily for 3 days, 1/2 tab daily for 2 days PREDNISONE 99138174083 No Longer Active Jillina Frazell [employer] Active AMOXICILLIN 500 MG CAPS 2 po BID x 10 days AMOX ICILLIN 64677109034 No Longer Active Jillina Frazell [employer] Active SINGULAIR 10 MG TABS 1 po qday for allergies 2 MONTELUKAST SODIUM 48400311118 No Longer Active Carlton Hu MD Acti ve LEVAQUIN 500 MG TAB 1 tablet by mouth daily LEV OFLOXACIN 37904995156 No Longer Active Carlton Hu MD Active FLUTICASONE PROPIONATE 50 MCG/ACT SUSP 2 sprays each n ostril daily for 2 weeks, then 1 spray each nostril daily. FLUTICASONE PRO PIONATE 69608844265 Active Elise Whitmore APRN Active ZITHROMAX 250 MG TAB 2 po today, then 1 po q days 2-5 AZITHROMYCIN 61061608595 No Longer Active Elise Whitmore APRN Acti ve XANAX 0.5 MG TABS one tablet by mouth daily prn anxiety ALPRAZOLAM 65039276380 Active Elise Whitmore APRN Active CYMBALTA 30 MG CPEP 1 cap by mouth daily for depression DULOXETINE HCL 67746853818 Active Carlton Hu MD Active CEFDINIR 300 MG CAPS 1 po BID x 10 days CEFDINI R 65255865316 No Longer Active Carlton Hu MD Active ZOCOR 40 MG TAB 1 tab by mouth daily SIMVASTATI N 33679823981 No Longer Active Carlton Hu MD Active CYCLOBENZAPRINE HCL 10 MG TABS 1 tablet by mouth BID prn had cherelle n CYCLOBENZAPRINE HCL 27876111822 No Longer Active Carlton Hu MD Active LEVOFLOXACIN 500 MG ORAL TABS 1 tab PO daily x 10 days LEVOFLOXACIN 22086627696 No Longer Active Carlton Hu MD Acti ve PREDNISONE 20 MG ORAL TABS 3 tab PO qd x 2d, 2 tab PO qd x 2d, 1 tab PO qd x 2d, 1/2 tab PO qd x 2d PREDNISONE 16241323799 No Longer Active Carlton Hu MD Active FLUTICASONE PROPIONATE 50 MCG/ACT SUSP 1 to 2 sprays each no stril daily FLUTICASONE PROPIONATE 15025845901 No Longer Active T jaz HERNANDEZ Active CHERATUSSIN AC 100-10 MG/5ML SYRP 1 tsp by mouth every 4 hours as needed for cough GUAIFENESIN-CODEINE 27033339775 No Longer Activ e Blaine HERNANDZE Active PROMETHAZINE-CODEINE 6.25-10 MG/5ML SYRP 1 tsp by mout h every 6 hours if needed for cough PROMETHAZINE-CODEINE 54801244491 No Long er Active Blaine HERNANDEZ Active CHERATUSSIN AC 100-10 MG/5ML SYRP 1 tsp by mouth every 4 hours as needed for cough GUAIFENESIN-CODEINE 53730056101 No Longer Activ e Blaine HERNANDEZ Active ZITHROMAX Z-REYNA 250 MG TABS 2 today, then 1 daily for 4 days 201 08/30/03 AZITHROMYCIN 75534241312 No Longer Active Columba Raida Act nael ZITHROMAX 250 MG TAB 2 po today, then 1 po q days 2-5 AZITHROMYCIN 91928982948 No Longer Active Carlton Hu MD Acti ve ZITHROMAX Z-REYNA 250 MG TABS 2 today, then 1 daily for 4 days 201 08/07/20 AZITHROMYCIN 72413088950 No Longer Active Columba Raida Act nael AUGMENTIN 875-125 MG TAB 1 po BID x 10 days AMOXICILLIN- POT CLAVULANATE 24002436404 No Longer Active Diya Sernabrayan RICEN Active ZITHROMAX 250 MG TAB 2 po today, then 1 po q days 2-5 AZITHROMYCIN 91595640557 No Longer Active Carlton Hu MD Acti ve TRAMADOL HCL 50 MG TABS 1 po tid with ES Tylenol TRAMADOL HCL 79450618005 Active Carlton Hu MD Active PREMARIN 0.625 MG TABS TAKE 1 TAB BY MOUTH DAILY 07/25 ESTROGENS CONJUGATED 99047283281 No Longer Active Ridge Bess DO Active CYMBALTA 30 MG CPEP 1 cap by mouth daily DULOXE SNEHA HCL 91931537518 No Longer Active Ridge Bess DO Active AMOXICILLIN 500 MG CAP 1 tab by mouth 3 times daily x 10 days 20 14/04/28 AMOXICILLIN 37322525292 No Longer Active Carlton Hu MD Active AMOXICILLIN 500 MG CAP 1 tab by mouth 3 times daily x 10 days 20 13/03/08 AMOXICILLIN 59363141126 No Longer Active Carlton Hu MD Active PROMETHAZINE-CODEINE 6.25-10 MG/5ML SYRP 1 tsp by mouth ever y 8 hours prn cough PROMETHAZINE-CODEINE 08052919777 No Longer Active Robert Hu MD Active MEDROL (REYNA) 4 MG TABS 6 pills x 1 day, then 5 pill s x 1 day then 4 pills x 1 day, then 3 pills x 1 day, then 2 pills x 1 day, then 1 pill x 1 day, then stop METHYLPREDNISOLONE 80517411651 No Longer Active Parris Mora MD Active AZITHROMYCIN 250 MG TABS 2 po qd x 1 day, then 1 po qd x 4 days AZITHROMYCIN 50042159017 No Longer Active Perez Mora MD Active SYMBICORT 160-4.5 MCG/ACT AERO 2 puffs bid with rinse after 2011 BUDESONIDE-FORMOTEROL FUMARATE 57363876820 No Longer Active Perez Mora MD Active LYRICA 75 MG CAPS TAKE 1 CAPSULE BY MOUTH TWICE DAILY 2013 PREGABALIN 07599442706 No Longer Active Carlton Hu MD Active TOPAMAX 25 MG TABS 1 qHS x 1 week, then 1 BID x 1 week, then 1 qAM and 2 qHS x 1 week, then 2 BID (migraine prevention) TOPIRAMAT E 74829850613 No Longer Active Jerica AGUILARA Active TOPAMAX 50 MG TABS take 1 tab po BID for migraines. 12/07/10 TOPIRAMATE 77226700691 No Longer Active Jerica Osei RMA Ac tive TOPAMAX 100 MG TABS Take 1 tablet po bid TOPIRAMATE 4999 0906910 Active Elise Whitmore APRN Active TRIAMCINOLONE ACETONIDE 0.1 % CREA apply three times daily prn r beatrice TRIAMCINOLONE ACETONIDE 81199303068 No Longer Active Carlton Hu MD Active PAXIL 40 MG TAB take 1 tab po qday for depression PAROXETINE HCL 60773232080 Active Elise Whitmore APRN Active CHERATUSSIN AC 100-10 MG/5ML SYRP 5ml po q6hr PRN Cough GUAIFENESIN-CODEINE 97911871567 No Longer Active Carlton Hu MD Active MEDROL (REYNA) 4 MG TABS 6 tabs on day 1, 5 tabs on d ay 2, 4 tabs on day 3, 3 tabs on day 4, 2 tabs on day 5, 1 tab on day 6 METHYLPREDNISOLONE 02055005037 No Longer Active Perez Mora MD Active AZITHROMYCIN 250 MG TABS 2 po qd x 1 day, then 1 po qd x 4 days AZITHROMYCIN 09424487274 No Longer Active Perez Mora MD Active PROPRANOLOL HCL 60 MG TABS 1 PO Q D PROPRANOL OL HCL 83047396967 No Longer Active Perez Mora MD Active CHERATUSSIN AC 100-10 MG/5ML SYRP take one tsp po Q 6hours prn c ough GUAIFENESIN-CODEINE 13362284983 No Longer Active Perez Means Active AUGMENTIN 875-125 MG TAB 1 tab by mouth twice daily with food 20 12/03/31 AMOXICILLIN-POT CLAVULANATE 47573340891 No Longer Active Chanel Moar MD Active CHERATUSSIN AC 100-10 MG/5ML SYRP 1 tsp by mouth every 4 hours as needed for cough GUAIFENESIN-CODEINE 58845970507 No Longer Activ e Hugo Restrepo MD Active ACETAMINOPHEN-CODEINE #3 300-30 MG TABS 1 PO Q 4-6 HRS PRN PAIN ACETAMINOPHEN-CODEINE 72358237207 No Longer Active Hugo Restrepo MD Active LEVAQUIN 500 MG TABS take one po QD LEVOFLOXACI N 27151834444 No Longer Active Griffin HERNANDEZ Active PREDNISONE 20 MG TAB Take 3 tabs daily for 3 days , 2 tabs daily for 3 days, 1 tab daily for 3 days, 1/2 tab daily for 3 days P REDNISONE 99363365130 No Longer Active Carlton Hu MD Active AVELOX 400 MG TABS 1 tab by mouth daily MOXIFLO XACIN HCL 59128036714 No Longer Active Carlton Hu MD Active CHERATUSSIN AC 100-10 MG/5ML SYRP 1 tsp by mouth every 4 hours as needed for cough GUAIFENESIN-CODEINE 15885676419 No Longer Activ e Hugo Restrepo MD Active AVELOX 400 MG TABS 1 tab by mouth daily MOXIFLO XACIN HCL 03285259401 No Longer Active Marcy De La Rosa MD PhD Active TERBINAFINE HCL 250 MG TABS 1 qDay TERBINAF INE HCL 47194481690 No Longer Active Marcy De La Rosa MD PhD Active CHERATUSSIN AC 100-10 MG/5ML SYRP 1 tsp by mouth every 4 hours as needed for cough GUAIFENESIN-CODEINE 36828199288 No Longer Activ e Marcy De La Rosa MD PhD Active AVELOX 400 MG TABS 1 tab by mouth daily MOXIFLO XACIN HCL 01610843411 No Longer Active Marcy De La Rosa MD PhD Active HYDROCODONE-ACETAMINOPHEN 5-325 MG TABS 1 po q 6hr PRN cough 201 05/09/16 HYDROCODONE-ACETAMINOPHEN 61245606428 No Longer Active Marcy De La Rosa MD PhD Active PREDNISONE 20 MG TAB 2 tabs daily for 3 days, 1 t ab daily for 3 days, 1/2 tab daily for 2 days PREDNISONE 13572428847 No Longer Active Carlton Hu MD Active CEFDINIR 300 MG CAPS by mouth twice a day CEFDI ODILIA 22833023897 No Longer Active Carlton Hu MD Active HYDROCHLOROTHIAZIDE 25 MG TABS 1 TAB PO DAILY H YDROCHLOROTHIAZIDE 48839916272 Active Carlton Hu MD Active ACETAMINOPHEN-CODEINE #3 300-30 MG TABS 1 tablet po q 4-6hrs prn pain ACETAMINOPHEN-CODEINE 37342477582 No Longer Active Ridge Bess DO Active ZITHROMAX 250 MG TAB 2 po today, then 1 po q days 2-5 AZITHROMYCIN 48891399050 No Longer Active Carlton Hu MD Acti ve CHERATUSSIN AC 100-10 MG/5ML SYRP take 1 tsp po q4-6 hours prn c ough GUAIFENESIN-CODEINE 85545689914 No Longer Active Carlton Hu MD Active ACETAMINOPHEN-CODEINE #3 300-30 MG TABS 1 PO Q 4-6 HR PRN PAIN 2 ACETAMINOPHEN-CODEINE 88554649678 No Longer Active Carlton rich MD Active LORTAB 7.5-500 MG/15ML ELIX 7.5 ml po q 4 hour prn cough HYDROCODONE-ACETAMINOPHEN 53566971825 No Longer Active Carlton Hu MD Active PREDNISONE 20 MG TAB 1 po bid 3 days, then 1 po q day 3 days 201 05/03/07 PREDNISONE 58990798743 No Longer Active Carlton Hu MD Active ELMIRON 100 MG CAPS 2 tablets in the am and 1 tablet at hs PENTOSAN POLYSULFATE SODIUM 83519192478 Active Carlton Hu MD Ac tive CEFDINIR 300 MG CAPS by mouth twice a day CEFDI ODILIA 31963564026 No Longer Active Carlton Hu MD Active CEFDINIR 300 MG CAPS by mouth twice a day CEFDI ODILIA 97790942899 No Longer Active Carlton Hu MD Active CEFDINIR 300 MG CAPS by mouth twice a day CEFDI ODILIA 14916616133 No Longer Active Carlton Hu MD Active TESSALON PERLES 100 MG CAP 1 tablet by mouth 3 times daily a s needed for cough BENZONATATE 59714738833 No Longer Active Carlton bustamante MD Active CEFDINIR 300 MG CAPS by mouth twice a day CEFDI ODILIA 51991233453 No Longer Active Carlton Hu MD Active ZITHROMAX Z-REYNA 250 MG TABS 2 today, then 1 daily for 4 days 201 04/09/17 AZITHROMYCIN 34851347272 No Longer Active Hugo Restrepo MD Active TESSALON PERLES 100 MG CAP 1 tablet by mouth 3 times daily a s needed for cough TESSALON PERLES 100 MG CAP 416382 BENZONATATE I nactive PREDNISONE 20 MG TAB 1 po bid 3 days, then 1 po q day 3 days 201 05/03/07 PREDNISONE 20 MG TAB 283880 PREDNISONE Inactive LORTAB 7.5-500 MG/15ML ELIX 7.5 ml po q 4 hour prn cough LORTAB 7.5-500 MG/15ML ELIX HYDROCODONE-ACETAMINOPHEN Inacti ve ACETAMINOPHEN-CODEINE #3 300-30 MG TABS 1 PO Q 4-6 HR PRN PAIN 2 ACETAMINOPHEN-CODEINE #3 300-30 MG TABS ACETAMIN OPHEN-CODEINE Inactive CHERATUSSIN AC 100-10 MG/5ML SYRP take 1 tsp po q4-6 hours prn c ough CHERATUSSIN AC 100-10 MG/5ML SYRP 386640 GUAIFENESIN-CO DEINE Inactive ACETAMINOPHEN-CODEINE #3 300-30 MG TABS 1 tablet po q 4-6hrs prn pain ACETAMINOPHEN-CODEINE #3 300-30 MG TABS ACETAMIN OPHEN-CODEINE Inactive HYDROCODONE-ACETAMINOPHEN 5-325 MG TABS 1 po q 6hr PRN cough 201 05/09/16 HYDROCODONE-ACETAMINOPHEN 5-325 MG TABS 277908 HYDROCODONE-ACETAMINOPHEN Inactive AVELOX 400 MG TABS 1 tab by mouth daily A VELOX 400 MG TABS 043808 MOXIFLOXACIN HCL Inactive CHERATUSSIN AC 100-10 MG/5ML SYRP 1 tsp by mouth every 4 hours as needed for cough CHERATUSSIN AC 100-10 MG/5ML SYRP 633143 GUAIFENESIN-CODEINE Inactive TERBINAFINE HCL 250 MG TABS 1 qDay TERBINAFINE HCL 250 MG TABS 795204 TERBINAFINE HCL Inactive CHERATUSSIN AC 100-10 MG/5ML SYRP 1 tsp by mouth every 4 hours as needed for cough CHERATUSSIN AC 100-10 MG/5ML SYRP 218711 GUAIFENESIN-CODEINE Inactive ACETAMINOPHEN-CODEINE #3 300-30 MG TABS 1 PO Q 4-6 HRS PRN PAIN ACETAMINOPHEN-CODEINE #3 300-30 MG TABS ACETAMINOPHEN-CODEIN E Inactive CHERATUSSIN AC 100-10 MG/5ML SYRP 1 tsp by mouth every 4 hours as needed for cough CHERATUSSIN AC 100-10 MG/5ML SYRP 792486 GUAIFENESIN-CODEINE Inactive AUGMENTIN 875-125 MG TAB 1 tab by mouth twice daily with food 20 12/03/31 AUGMENTIN 875-125 MG TAB 368473 AMOXICILLIN-POT CLAVULA EFE Inactive CHERATUSSIN AC 100-10 MG/5ML SYRP take one tsp po Q 6hours prn c ough CHERATUSSIN AC 100-10 MG/5ML SYRP 510456 GUAIFENESIN-CO DEINE Inactive PROPRANOLOL HCL 60 MG TABS 1 PO Q D P ROPRANOLOL HCL 60 MG TABS 072666 PROPRANOLOL HCL Inactive TOPAMAX 50 MG TABS take 1 tab po BID for migraines. 12/07/10 TOPAMAX 50 MG TABS 887797 TOPIRAMATE Inactive TOPAMAX 25 MG TABS 1 qHS x 1 week, then 1 BID x 1 week, then 1 qAM and 2 qHS x 1 week, then 2 BID (migraine prevention) TOPAMAX 2 5 MG TABS 106285 TOPIRAMATE Inactive LYRICA 75 MG CAPS TAKE 1 CAPSULE BY MOUTH TWICE DAILY LYRICA 75 MG CAPS PREGABALIN Inactive SYMBICORT 160-4.5 MCG/ACT AERO 2 puffs bid with rinse after 2011 SYMBICORT 160-4.5 MCG/ACT AERO BUDESONIDE-FORMOT SÁNCHEZ FUMARATE Inactive PROMETHAZINE-CODEINE 6.25-10 MG/5ML SYRP 1 tsp by mouth ever y 8 hours prn cough PROMETHAZINE-CODEINE 6.25-10 MG/5ML SYRP 951660 PROMETHAZINE-CODEINE Inactive CYMBALTA 30 MG CPEP 1 cap by mouth daily CYMBALTA 30 MG CPEP 767846 DULOXETINE HCL Inactive PREMARIN 0.625 MG TABS TAKE 1 TAB BY MOUTH DAILY 07/25 PREMARIN 0.625 MG TABS ESTROGENS CONJUGATED Inactive CHERATUSSIN AC 100-10 MG/5ML SYRP 1 tsp by mouth every 4 hours as needed for cough CHERATUSSIN AC 100-10 MG/5ML SYRP 427330 GUAIFENESIN-CODEINE Inactive PROMETHAZINE-CODEINE 6.25-10 MG/5ML SYRP 1 tsp by mout h every 6 hours if needed for cough PROMETHAZINE-CODEINE 6.25-10 MG/5ML SYRP 115161 PROMETHAZINE-CODEINE Inactive CHERATUSSIN AC 100-10 MG/5ML SYRP 1 tsp by mouth every 4 hours as needed for cough CHERATUSSIN AC 100-10 MG/5ML SYRP 695608 GUAIFENESIN-CODEINE Inactive FLUTICASONE PROPIONATE 50 MCG/ACT SUSP 1 to 2 sprays each no stril daily FLUTICASONE PROPIONATE 50 MCG/ACT SUSP 1267236 FLUTICASONE PROPIONATE Inactive PREDNISONE 20 MG ORAL TABS 3 tab PO qd x 2d, 2 tab PO qd x 2d, 1 tab PO qd x 2d, 1/2 tab PO qd x 2d PREDNISONE 20 MG ORAL TABS 096763 PREDNISONE Inactive LEVOFLOXACIN 500 MG ORAL TABS 1 tab PO daily x 10 days LEVOFLOXACIN 500 MG ORAL TABS 092130 LEVOFLOXACIN Inactive CYCLOBENZAPRINE HCL 10 MG TABS 1 tablet by mouth BID prn had cherelle n CYCLOBENZAPRINE HCL 10 MG TABS 714972 CYCLOBENZAPRINE H CL Inactive ZOCOR 40 MG TAB 1 tab by mouth daily ZOCOR 40 M G TAB 720690 SIMVASTATIN Inactive TUSSIONEX PENNKINETIC ER 10-8 MG/5ML [...] empty FLUTICASONE PROPIONATE 50 MCG/ACT SUSP 17 70903 FLUTICASONE PROPIONATE Inactive TUSSIONEX PENNKINETIC ER 10-8 [...] 201 04/09/17 ZITHROMAX Z-REYNA 250 MG TABS 4700811 AZITHROMYCIN Inac tive CEFDINIR 300 MG CAPS by mouth twice a day CEFDINIR 300 MG CAPS 20020704 CEFDINIR Inactive CEFDINIR 300 MG CAPS by mouth twice a day CEFDINIR 300 MG CAPS 20020704 CEFDINIR Inactive CEFDINIR 300 MG CAPS by mouth twice a day CEFDINIR 300 MG CAPS 072735 CEFDINIR Inactive CEFDINIR 300 MG CAPS by mouth twice a day CEFDINIR 300 MG CAPS 20020704 CEFDINIR Inactive ZITHROMAX 250 MG TAB 2 po today, then 1 po q days 2-5 ZITHROMAX 250 MG TAB 8888367 AZITHROMYCIN Inactive CEFDINIR 300 MG CAPS by mouth twice a day CEFDINIR 300 MG CAPS 238911 CEFDINIR Inactive PREDNISONE 20 MG TAB 2 tabs daily for 3 days, 1 t ab daily for 3 days, 1/2 tab daily for 2 days PREDNISONE 20 MG TAB 929442 PREDNISON E Inactive AVELOX 400 MG TABS 1 tab by mouth daily A VELOX 400 MG TABS 899923 MOXIFLOXACIN HCL Inactive AVELOX 400 MG TABS 1 tab by mouth daily A VELOX 400 MG TABS 190794 MOXIFLOXACIN HCL Inactive PREDNISONE 20 MG TAB Take 3 tabs daily for 3 days , 2 tabs daily for 3 days, 1 tab daily for 3 days, 1/2 tab daily for 3 days PREDNISONE 20 MG TAB 998317 PREDNISONE Inactive LEVAQUIN 500 MG TABS take one po QD LEVAQUIN 50 0 MG TABS 767254 LEVOFLOXACIN Inactive AZITHROMYCIN 250 MG TABS 2 po qd x 1 day, then 1 po qd x 4 days AZITHROMYCIN 250 MG TABS 8499698 AZITHROMYCIN Inactiv e MEDROL (REYNA) 4 MG TABS 6 tabs on day 1, 5 tabs on d ay 2, 4 tabs on day 3, 3 tabs on day 4, 2 tabs on day 5, 1 tab on day 6 MEDROL (REYNA) 4 MG TABS 192828 METHYLPREDNISOLONE Inactive CHERATUSSIN AC 100-10 MG/5ML SYRP 5ml po q6hr PRN Cough CHERATUSSIN AC 100-10 MG/5ML SYRP 058939 GUAIFENESIN-CODEINE Inacti ve TRIAMCINOLONE ACETONIDE 0.1 % CREA apply three times daily prn r beatrice TRIAMCINOLONE ACETONIDE 0.1 % CREA 2430203 TRIAMCINOLONE ACETONIDE Inactive AZITHROMYCIN 250 MG TABS 2 po qd x 1 day, then 1 po qd x 4 days AZITHROMYCIN 250 MG TABS 9856969 AZITHROMYCIN Inactiv e MEDROL (REYNA) 4 MG TABS 6 pills x 1 day, then 5 pill s x 1 day then 4 pills x 1 day, then 3 pills x 1 day, then 2 pills x 1 day, then 1 pill x 1 day, then stop MEDROL (REYNA) 4 MG TABS 511661 METHYLPREDNISOLONE Inactive AMOXICILLIN 500 MG CAP 1 tab by mouth 3 times daily x 10 days 20 13/03/08 AMOXICILLIN 500 MG CAP 164340 AMOXICILLIN Inactive AMOXICILLIN 500 MG CAP 1 tab by mouth 3 times daily x 10 days 20 14/04/28 AMOXICILLIN 500 MG CAP 881919 AMOXICILLIN Inactive ZITHROMAX 250 MG TAB 2 po today, then 1 po q days 2-5 ZITHROMAX 250 MG TAB 2601478 AZITHROMYCIN Inactive AUGMENTIN 875-125 MG TAB 1 po BID x 10 days AUGMENTIN 875- 125 MG TAB 505601 AMOXICILLIN-POT CLAVULANATE Inactive ZITHROMAX Z-REYNA 250 MG TABS 2 today, then 1 daily for 4 days 201 08/07/20 ZITHROMAX Z-REYNA 250 MG TABS 0419677 AZITHROMYCIN Inac tive ZITHROMAX 250 MG TAB 2 po today, then 1 po q days 2-5 ZITHROMAX 250 MG TAB 8713279 AZITHROMYCIN Inactive ZITHROMAX Z-REYNA 250 MG TABS 2 today, then 1 daily for 4 days 201 08/30/03 ZITHROMAX Z-REYNA 250 MG TABS 7233188 AZITHROMYCIN Inac tive CEFDINIR 300 MG CAPS 1 po BID x 10 days C EFDINIR 300 MG CAPS 416739 CEFDINIR Inactive ZITHROMAX 250 MG TAB 2 po today, then 1 po q days 2-5 ZITHROMAX 250 MG TAB 1352778 AZITHROMYCIN Inactive LEVAQUIN 500 MG TAB 1 tablet by mouth daily LEVAQUIN 500 MG TAB 068170 LEVOFLOXACIN Inactive SINGULAIR 10 MG TABS 1 po qday for allergies 2 SINGULAIR 10 MG TABS 20010504 MONTELUKAST SODIUM Inactive AMOXICILLIN 500 MG CAPS 2 po BID x 10 days AMOXICILLIN 500 MG CAPS 951240 AMOXICILLIN Inactive PREDNISONE 20 MG TAB 2 tabs daily for 3 days, 1 t ab daily for 3 days, 1/2 tab daily for 2 days PREDNISONE 20 MG TAB 728529 PREDNISON E Inactive ZITHROMAX Z-REYNA 250 MG TABS 2 today, then 1 daily for 4 days 201 09/29/14 ZITHROMAX Z-REYNA 250 MG TABS 9957886 AZITHROMYCIN Inac tive PREDNISONE 20 MG TAB 2 tabs daily for 3 days, 1 t ab daily for 3 days, 1/2 tab daily for 2 days PREDNISONE 20 MG TAB 081154 PREDNISON E Inactive Vital Signs Date Name [...] Negative Encounters Code Encounter Date Provider Facility CPT-09463 Level 3 Est. Patient 12:17:50 CDT Hugo Restrepo MD [facility] CPT-08415 Level 3 Est. Patient 13:42:38 CDT Italo [facility] CPT-44396 Level 3 Est. Patient 13:23:51 CDT Diya cobian [facility] [place] CPT-55865 Level 3 Est. 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 Patient 10:11:46 CDT Carlton rich MD [facility] CPT-60721 Level 3 Est. Patient 17:29:43 CDT Italo [facility] CPT-78383 Level 3 Est. Patient 11:58:06 CDT Italo RICEN [facility] CPT-35324 Level 4 Est. Patient 14:36:51 CDT Carlton rich MD [facility]-22274 Level 3 Est. 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 Patient 13:19:20 CDT Carlton rich MD [facility]-44772 Level 3 Est. Patient 13:06:43 CDT Ridge tam DO [facility] CPT-50128 Level 3 Est. Patient 10:03:07 CDT Perez Mora MD [facility] CPT-32574 Level 3 Est. 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 Patient 14:12:49 CDT Griffin lincoln [facility]-61810 Level 3 Est. Patient 17:37:24 CDT Carlton rich MD [facility]-38836 Level 3 Est. Patient 16:51:54 CDT Carlton rich MD [facility]-05363 Level 3 Est. Patient 12:18:11 CDT Hugo Restrepo MD [facility]-51683 Level 3 Est. Patient 11:30:25 CDT Marcy crisostomo MD PhD [facility] CPT-98588 Level 3 Est. 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 Patient 12:34:12 CDT Carlton rich MD [facility] CPT-37032 Level 2 Est. Patient 15:43:33 CDT Robi armstrong MD [facility] CPT-38884 Level 4 Est. Patient 14:04:44 CDT Carlton rich MD [facility] CPT-92697 Level 3 Est. Patient 05:47:59 CDT Ridge tam [facility] CPT-78733 Level 3 Est. 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 Patient 14:26:53 CDT Hugo Restrepo MD [facility] Procedures Code Procedure Name Date Entry Date Standard Desc ription CPT-J0696 Rocephin 1gm Inj Solr 14:32:13 CDT CPT-J1020 Depo Medrol 60 mg (Methyl Prednisolone A cetate) 14:32:13 CDT CPT-J1100 Decadron 6mg (Dexamethasone) 14:32:13 CDT 2 CPT-58933 Hip bilat min 2V w AP pelvis 13:16:20 CDT 2 CPT-92942 Pelvis only 13:07:33 CDT CPT-56181 Spec Collection and Handling Fee 11:25:12 C DT CPT-61727 Fluzone Quadrivalent Intramuscular Suspe nsion 0.5 ML 14:31:55 CDT CPT-51151 Abx/Therapy Injection 13:28:47 DEFECT REPAIR[employer] CPT-J2930 Solu Medrol 125 mg (Methyl Prednisolone Sodium Succinate) 12:00:47 DEFECT REPA[employer] CPT-31365 Venipuncture Draw Fee 11:33:31 CDT CPT-65246 EKG Trac and Interp 11:21:09 CDT CPT-10769 Chest 2V Frontal and Lat 11:21:09 CDT 12/15 CPT-87085 Venipuncture Draw Fee 08:02:34 CDT CPT-86249 Chest 2V Frontal and Lat 05:47:59 CDT 06/05
--- OUTSIDE RECORDS SUMMARY | 2019-10-08 08:38 | XMS REPORT | Clinical Summary ---
Author Author Caitlin, Juliana Martinez Organization [facility] Address Unknown Phone Unavailable Allergies, Adverse [...] po tid with ES Tylenol TRAMADOL HCL [id number] Active Ridge Bess DO Active PREMARIN 0.625 MG TABS TAKE 1 TAB BY MOUTH DAILY 07/25 ESTROGENS CONJUGATED [id number] No Longer Active Ridge Bess DO Active CYMBALTA 30 MG CPEP 1 cap by mouth daily DULOXE SNEHA HCL 71070835911 No Longer Active Ridge Bess DO Active AMOXICILLIN 500 MG CAP 1 tab by mouth 3 times daily x 10 days 20 14/04/28 AMOXICILLIN 15989624167 No Longer Active Carlton Hu MD Active AMOXICILLIN 500 MG CAP 1 tab by mouth 3 times daily x 10 days 20 13/03/08 AMOXICILLIN 49690272160 No Longer Active Carlton Hu MD Active CHERATUSSIN AC 100-10 MG/5ML SYRP 1 tsp by mouth every 4 hours as needed for cough GUAIFENESIN-CODEINE 56358347702 Active Carlton banks MD Active CYCLOBENZAPRINE HCL 10 MG TABS 1 tablet by mouth BID prn had pain 2 CYCLOBENZAPRINE HCL 90639109174 Active Carlton Hu MD A ctive PROMETHAZINE-CODEINE 6.25-10 MG/5ML SYRP 1 tsp by mouth ever y 8 hours prn cough PROMETHAZINE-CODEINE 82286633547 No Longer Active Robert jade Hu MD Active MEDROL (REYNA) 4 MG TABS 6 pills x 1 day, then 5 pill s x 1 day then 4 pills x 1 day, then 3 pills x 1 day, then 2 pills x 1 day, then 1 pill x 1 day, then stop METHYLPREDNISOLONE 47368866998 No Longer Active Parris Mora MD Active AZITHROMYCIN 250 MG TABS 2 po qd x 1 day, then 1 po qd x 4 days AZITHROMYCIN 65560200595 No Longer Active Perez Mora MD Active SYMBICORT 160-4.5 MCG/ACT AERO 2 puffs bid with rinse after 2011 BUDESONIDE-FORMOTEROL FUMARATE [id number] No Longer Active Perez Mora MD Active LYRICA 75 MG CAPS TAKE 1 CAPSULE BY MOUTH TWICE DAILY 2013 PREGABALIN 08122680102 No Longer Active Carlton Hu MD Active LYRICA 100 MG CAPS Take 1 tab po BID for fibromyalgia PREGABALIN 98970695856 Active Carlton Hu MD Active TOPAMAX 25 MG TABS 1 qHS x 1 week, then 1 BID x 1 week, then 1 qAM and 2 qHS x 1 week, then 2 BID (migraine prevention) TOPIRAMAT E 20444750431 No Longer Active Jerica FUENTES Active TOPAMAX 50 MG TABS take 1 tab po BID for migraines. 12/07/10 TOPIRAMATE 16972872202 No Longer Active Jerica AGUILARA Ac tive TOPAMAX 100 MG TABS Take 1 tablet po bid TOPIRAMATE 4999 9425786 Active Carlton Hu MD Active TRIAMCINOLONE ACETONIDE 0.1 % CREA apply three times daily prn r beatrice TRIAMCINOLONE ACETONIDE 45471423709 No Longer Active Carlton Hu MD Active PAXIL 40 MG TAB take 1 tab po qday for depression PAROXETINE HCL 69687947852 Active Carlton Hu MD Active CHERATUSSIN AC 100-10 MG/5ML SYRP 5ml po q6hr PRN Cough GUAIFENESIN-CODEINE 84599224860 No Longer Active Carlton Hu MD Active MEDROL (REYNA) 4 MG TABS 6 tabs on day 1, 5 tabs on d ay 2, 4 tabs on day 3, 3 tabs on day 4, 2 tabs on day 5, 1 tab on day 6 METHYLPREDNISOLONE 17376928709 No Longer Active Perez Mora MD Active AZITHROMYCIN 250 MG TABS 2 po qd x 1 day, then 1 po qd x 4 days AZITHROMYCIN 90487949940 No Longer Active Perez Mora MD Active PROPRANOLOL HCL 60 MG TABS 1 PO Q D PROPRANOL OL HCL 53273101264 No Longer Active Perez Mora MD Active CHERATUSSIN AC 100-10 MG/5ML SYRP take one tsp po Q 6hours prn c ough GUAIFENESIN-CODEINE 28514917070 No Longer Active Perez Means Active AUGMENTIN 875-125 MG TAB 1 tab by mouth twice daily with food 20 12/03/31 AMOXICILLIN-POT CLAVULANATE 21425826477 No Longer Active Chanel Mora MD Active CHERATUSSIN AC 100-10 MG/5ML SYRP 1 tsp by mouth every 4 hours as needed for cough GUAIFENESIN-CODEINE 53594745743 No Longer Activ e Hugo Restrepo MD Active ACETAMINOPHEN-CODEINE #3 300-30 MG TABS 1 PO Q 4-6 HRS PRN PAIN ACETAMINOPHEN-CODEINE 50677694936 No Longer Active Hugo Restrepo MD Active LEVAQUIN 500 MG TABS take one po QD LEVOFLOXACI N 40407909169 No Longer Active Griffin HERNANDEZ Active PREDNISONE 20 MG TAB Take 3 tabs daily for 3 days , 2 tabs daily for 3 days, 1 tab daily for 3 days, 1/2 tab daily for 3 days P REDNISONE 63551190678 No Longer Active Carlton Hu MD Active AVELOX 400 MG TABS 1 tab by mouth daily MOXIFLO XACIN HCL 94901229058 No Longer Active Carlton Hu MD Active CHERATUSSIN AC 100-10 MG/5ML SYRP 1 tsp by mouth every 4 hours as needed for cough GUAIFENESIN-CODEINE 58405317144 No Longer Activ e Hugo Restrepo MD Active AVELOX 400 MG TABS 1 tab by mouth daily MOXIFLO XACIN HCL 67556770612 No Longer Active Marcy De La Rosa MD PhD Active TERBINAFINE HCL 250 MG TABS 1 qDay TERBINAF INE HCL 69696789298 No Longer Active Marcy De La Rosa MD PhD Active CHERATUSSIN AC 100-10 MG/5ML SYRP 1 tsp by mouth every 4 hours as needed for cough GUAIFENESIN-CODEINE 19646402865 No Longer Activ e Marcy De La Rosa MD PhD Active AVELOX 400 MG TABS 1 tab by mouth daily MOXIFLO XACIN HCL 46420235476 No Longer Active Marcy De La Rosa MD PhD Active HYDROCODONE-ACETAMINOPHEN 5-325 MG TABS 1 po q 6hr PRN cough 201 05/09/16 HYDROCODONE-ACETAMINOPHEN 08759825926 No Longer Active Marcy De La Rosa MD PhD Active PREDNISONE 20 MG TAB 2 tabs daily for 3 days, 1 t ab daily for 3 days, 1/2 tab daily for 2 days PREDNISONE 15812041642 No Longer Active Carlton Hu MD Active CEFDINIR 300 MG CAPS by mouth twice a day CEFDI ODILIA 05698999590 No Longer Active Carlton Hu MD Active ZOCOR 40 MG TAB 1 tab by mouth daily SIMVASTATIN 19242520424 Active Carlton Hu MD Active HYDROCHLOROTHIAZIDE 25 MG TABS 1 TAB PO DAILY H YDROCHLOROTHIAZIDE 56324783693 Active Carlton Hu MD Active ACETAMINOPHEN-CODEINE #3 300-30 MG TABS 1 tablet po q 4-6hrs prn pain ACETAMINOPHEN-CODEINE 25575517120 No Longer Active Ridge Bess DO Active ZITHROMAX 250 MG TAB 2 po today, then 1 po q days 2-5 AZITHROMYCIN 18426856477 No Longer Active Carlton Hu MD Acti ve CHERATUSSIN AC 100-10 MG/5ML SYRP take 1 tsp po q4-6 hours prn c ough GUAIFENESIN-CODEINE 83405659028 No Longer Active Carlton Hu MD Active ACETAMINOPHEN-CODEINE #3 300-30 MG TABS 1 PO Q 4-6 HR PRN PAIN 2 ACETAMINOPHEN-CODEINE 21235869186 No Longer Active Carlton rich MD Active LORTAB 7.5-500 MG/15ML ELIX 7.5 ml po q 4 hour prn cough HYDROCODONE-ACETAMINOPHEN 32706937405 No Longer Active Carlton Hu MD Active PREDNISONE 20 MG TAB 1 po bid 3 days, then 1 po q day 3 days 201 05/03/07 PREDNISONE 45908720622 No Longer Active Carlton Hu MD Active ELMIRON 100 MG CAPS 2 tablets in the am and 1 tablet at hs PENTOSAN POLYSULFATE SODIUM 39495131580 Active Gracie Moreno Active CEFDINIR 300 MG CAPS by mouth twice a day CEFDI ODILIA 77481736328 No Longer Active Carlton Hu MD Active CEFDINIR 300 MG CAPS by mouth twice a day CEFDI ODILIA 71025169584 No Longer Active Carlton Hu MD Active CEFDINIR 300 MG CAPS by mouth twice a day CEFDI ODILIA 07405677209 No Longer Active Carlton Hu MD Active TESSALON PERLES 100 MG CAP 1 tablet by mouth 3 times daily a s needed for cough BENZONATATE 61585851081 No Longer Active Carlton bustamante MD Active CEFDINIR 300 MG CAPS by mouth twice a day CEFDI ODILIA 82728735900 No Longer Active Carlton Hu MD Active ZITHROMAX Z-REYNA 250 MG TABS 2 today, then 1 daily for 4 days 201 04/09/17 AZITHROMYCIN 79101168790 No Longer Active Hugo Restrepo MD Active TESSALON PERLES 100 MG CAP 1 tablet by mouth 3 times daily a s needed for cough TESSALON PERLES 100 MG CAP 391537 BENZONATATE I nactive PREDNISONE 20 MG TAB 1 po bid 3 days, then 1 po q day 3 days 201 05/03/07 PREDNISONE 20 MG TAB 577168 PREDNISONE Inactive LORTAB 7.5-500 MG/15ML ELIX 7.5 ml po q 4 hour prn cough LORTAB 7.5-500 MG/15ML ELIX HYDROCODONE-ACETAMINOPHEN Inacti ve ACETAMINOPHEN-CODEINE #3 300-30 MG TABS 1 PO Q 4-6 HR PRN PAIN 2 ACETAMINOPHEN-CODEINE #3 300-30 MG TABS 029209 ACETAMIN OPHEN-CODEINE Inactive CHERATUSSIN AC 100-10 MG/5ML SYRP take 1 tsp po q4-6 hours prn c ough CHERATUSSIN AC 100-10 MG/5ML SYRP 256170 GUAIFENESIN-CO DEINE Inactive ACETAMINOPHEN-CODEINE #3 300-30 MG TABS 1 tablet po q 4-6hrs prn pain ACETAMINOPHEN-CODEINE #3 300-30 MG TABS 815322 ACETAMIN OPHEN-CODEINE Inactive HYDROCODONE-ACETAMINOPHEN 5-325 MG TABS 1 po q 6hr PRN cough 201 05/09/16 HYDROCODONE-ACETAMINOPHEN 5-325 MG TABS 896772 HYDROCODONE-ACETAMINOPHEN Inactive AVELOX 400 MG TABS 1 tab by mouth daily A VELOX 400 MG TABS 919159 MOXIFLOXACIN HCL Inactive CHERATUSSIN AC 100-10 MG/5ML SYRP 1 tsp by mouth every 4 hours as needed for cough CHERATUSSIN AC 100-10 MG/5ML SYRP 499454 GUAIFENESIN-CODEINE Inactive TERBINAFINE HCL 250 MG TABS 1 qDay TERBINAFINE HCL 250 MG TABS 493878 TERBINAFINE HCL Inactive CHERATUSSIN AC 100-10 MG/5ML SYRP 1 tsp by mouth every 4 hours as needed for cough CHERATUSSIN AC 100-10 MG/5ML SYRP 566624 GUAIFENESIN-CODEINE Inactive ACETAMINOPHEN-CODEINE #3 300-30 MG TABS 1 PO Q 4-6 HRS PRN PAIN ACETAMINOPHEN-CODEINE #3 300-30 MG TABS 122800 ACETAMINOPHEN-CODEIN E Inactive CHERATUSSIN AC 100-10 MG/5ML SYRP 1 tsp by mouth every 4 hours as needed for cough CHERATUSSIN AC 100-10 MG/5ML SYRP 543603 GUAIFENESIN-CODEINE Inactive AUGMENTIN 875-125 MG TAB 1 tab by mouth twice daily with food 20 12/03/31 AUGMENTIN 875-125 MG TAB 882253 AMOXICILLIN-POT CLAVULA EFE Inactive CHERATUSSIN AC 100-10 MG/5ML SYRP take one tsp po Q 6hours prn c ough CHERATUSSIN AC 100-10 MG/5ML SYRP 872719 GUAIFENESIN-CO DEINE Inactive PROPRANOLOL HCL 60 MG TABS 1 PO Q D P ROPRANOLOL HCL 60 MG TABS 374525 PROPRANOLOL HCL Inactive TOPAMAX 50 MG TABS take 1 tab po BID for migraines. 12/07/10 TOPAMAX 50 MG TABS 460602 TOPIRAMATE Inactive TOPAMAX 25 MG TABS 1 qHS x 1 week, then 1 BID x 1 week, then 1 qAM and 2 qHS x 1 week, then 2 BID (migraine prevention) TOPAMAX 2 5 MG TABS 544295 TOPIRAMATE Inactive LYRICA 75 MG CAPS TAKE 1 CAPSULE BY MOUTH TWICE DAILY LYRICA 75 MG CAPS PREGABALIN Inactive SYMBICORT 160-4.5 MCG/ACT AERO 2 puffs bid with rinse after 2011 SYMBICORT 160-4.5 MCG/ACT AERO BUDESONIDE-FORMOT SÁNCHEZ FUMARATE Inactive PROMETHAZINE-CODEINE 6.25-10 MG/5ML SYRP 1 tsp by mouth ever y 8 hours prn cough PROMETHAZINE-CODEINE 6.25-10 MG/5ML SYRP 935740 PROMETHAZINE-CODEINE Inactive CYMBALTA 30 MG CPEP 1 cap by mouth daily CYMBALTA 30 MG CPEP 215355 DULOXETINE HCL Inactive PREMARIN 0.625 MG TABS TAKE 1 TAB BY MOUTH DAILY 07/25 PREMARIN 0.625 MG TABS ESTROGENS CONJUGATED Inactive ZITHROMAX Z-REYNA 250 MG TABS 2 today, then 1 daily for 4 days 201 04/09/17 ZITHROMAX Z-REYNA 250 MG TABS 9192064 AZITHROMYCIN Inac tive CEFDINIR 300 MG CAPS [...] q days 2-5 ZITHROMAX 250 MG TAB 7269354 AZITHROMYCIN Inactive CEFDINIR 300 MG CAPS by mouth twice a day CEFDINIR 300 MG CAPS 20020704 CEFDINIR Inactive PREDNISONE 20 MG TAB 2 tabs daily for 3 days, 1 t ab daily for 3 days, 1/2 tab daily for 2 days PREDNISONE 20 MG TAB 322087 PREDNISON E Inactive AVELOX 400 MG TABS 1 tab by mouth daily A VELOX 400 MG TABS 746724 MOXIFLOXACIN HCL Inactive AVELOX 400 MG TABS 1 tab by mouth daily A VELOX 400 MG TABS 469936 MOXIFLOXACIN HCL Inactive PREDNISONE 20 MG TAB Take 3 tabs daily for 3 days , 2 tabs daily for 3 days, 1 tab daily for 3 days, 1/2 tab daily for 3 days PREDNISONE 20 MG TAB 672753 PREDNISONE Inactive LEVAQUIN 500 MG TABS take one po QD LEVAQUIN 50 0 MG TABS 615188 LEVOFLOXACIN Inactive AZITHROMYCIN 250 MG TABS 2 po qd x 1 day, then 1 po qd x 4 days AZITHROMYCIN 250 MG TABS 2570987 AZITHROMYCIN Inactiv e MEDROL (REYNA) 4 MG TABS 6 tabs on day 1, 5 tabs on d ay 2, 4 tabs on day 3, 3 tabs on day 4, 2 tabs on day 5, 1 tab on day 6 MEDROL (REYNA) 4 MG TABS METHYLPREDNISOLONE Inactive CHERATUSSIN AC 100-10 MG/5ML SYRP 5ml po q6hr PRN Cough CHERATUSSIN AC 100-10 MG/5ML SYRP 758726 GUAIFENESIN-CODEINE Inacti ve TRIAMCINOLONE ACETONIDE 0.1 % CREA apply three times daily prn r beatrice TRIAMCINOLONE ACETONIDE 0.1 % CREA 2836526 TRIAMCINOLONE ACETONIDE Inactive AZITHROMYCIN 250 MG TABS 2 po qd x 1 day, then 1 po qd x 4 days AZITHROMYCIN 250 MG TABS 5538092 AZITHROMYCIN Inactiv e MEDROL (REYNA) 4 MG [...] days 20 13/03/08 AMOXICILLIN 500 MG CAP 893712 AMOXICILLIN Inactive AMOXICILLIN 500 MG CAP 1 tab by mouth 3 times daily x 10 days 20 14/04/28 AMOXICILLIN 500 MG CAP 272732 AMOXICILLIN Inactive Vital Signs Date Name Value [...] [phone] Encounters Code Encounter Date Provider Facility CPT-79725 Level 3 Est. Patient 13:06:43 CDT Ridge tam DO [facility] CPT-73094 Level 3 Est. Patient 10:03:07 CDT Perez Mora MD [facility] CPT-15048 Level 3 Est. Patient 19:50:35 [employer] Carlton rich MD [facility]-63977 Level 4 Est. Patient 18:05:01 [employer] Carlton rich MD [facility]-51487 Level 3 Est. Patient 10:45:55 [employer] Hugo Restrepo MD [facility]-30610 Level 3 Est. Patient 14:12:49 CDT Griffin HERNANDEZ [facility]-41702 Level 3 Est. Patient 17:37:24 CDT Carlton rich MD [facility]-50579 Level 3 Est. Patient 16:51:54 CDT Carlton rich MD [facility]-30294 Level 3 Est. Patient 12:18:11 CDT Hugo Restrepo MD [facility]-09778 Level 3 Est. Patient 11:30:25 CDT Marcy crisostomo MD PhD [facility]-46015 Level 3 Est. Patient 12:00:47 [employer] Carlton rich MD [facility]-97856 Level 3 Est. Patient 16:31:06 [employer] Carlton rich MD [facility]-91416 Level 3 Est. Patient 16:23:24 [employer] Ridge tam DO [facility]-83307 Level 3 Est. Patient 12:34:12 CDT Carlton rich MD [facility] CPT-11052 Level 2 Est. Patient 15:43:33 CDT Robi armstrong MD [facility]-19522 Level 4 Est. Patient 14:04:44 CDT Carlton rich MD [facility]-98401 Level 3 Est. Patient 05:47:59 CDT Ridge tam [facility]-05386 Level 3 Est. Patient 13:12:53 [employer] Carlton rich MD [facility] CPT-12695 Level 3 Est. Patient 14:26:53 CDT Hugo Restrepo MD [facility] Procedures Code Procedure Name Date Entry Date Standard Desc ription CPT-76251 Hip bilat min 2V w AP pelvis 13:16:20 CDT 2 CPT-56155 Pelvis only 13:07:33 CDT CPT-31331 Spec Collection and Handling Fee 11:25:12 C DT CPT-54357 Fluzone Quadrivalent Intramuscular Suspe nsion 0.5 ML 14:31:55 CDT CPT-40412 Abx/Therapy Injection 13:28:47 [employer] CPT-J2930 Solu Medrol 125 mg (Methyl Prednisolone Sodium Succinate) 12:00:47 [employer] CPT-97297 Venipuncture Draw Fee 11:33:31 CDT CPT-33489 EKG Trac and Interp 11:21:09 CDT CPT-14291 Chest 2V Frontal and Lat 11:21:09 CDT 12/15 CPT-51773 Venipuncture Draw Fee 08:02:34 CDT CPT-27408 Chest 2V Frontal and Lat 05:47:59 CDT 06/05
--- OUTSIDE RECORDS SUMMARY | 2019-10-08 08:38 | XMS REPORT | Clinical Summary ---
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 Unspecified sinusitis (chronic) Bronchitis 490 Active 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 Bronchitis, not specified as acute or chronic [...] a d ay as needed ALBUTEROL SULFATE 10986129060 Active Jillina Frazell APR N Active MUCINEX DM MAXIMUM STRENGTH 60-1200 MG [id number] 1 tab po q am 2016 DEXTROMETHORPHAN-GUAIFENESIN 74308095032 Active Jillina Frazell VISUAL [employer]S TEACHER Active TUSSIONEX PENNKINETIC ER 10-8 MG/5ML LQCR 5ml po q12hr PRN Cough 20 14/06/21 HYDROCOD POLST-CHLORPHEN POLST 75082702782 Active Carlton Hu MD Active PREDNISONE 20 MG TAB 2 tabs daily for 3 days, 1 t ab daily for 3 days, 1/2 tab daily for 2 days PREDNISONE 23988471656 No Longer Active Jillina Cesarl VISUAL [employer]S TEACHER Active TUSSIONEX PENNKINETIC ER 10-8 MG/5ML ORAL LQCR 5 mL PO q 12 hrs PRN cough HYDROCOD POLST-CHLORPHEN POLST 27828445264 No Longer Active Jillina Frazell VISUAL ARTS TEACHER Active FLUTICASONE PROPIONATE 50 MCG/ACT SUSP 2 sprays each n ostril daily until bottle is empty FLUTICASONE PROPIONATE 88322963561 No Longer Ac tive Jillina Cesarl VISUAL ARTS TEACHER Active ASMANEX 60 METERED DOSES 220 MCG/INH AEPB 1 puff bid with ri nse after MOMETASONE FUROATE 93961275865 No Longer Active Venullina Darlin meneses VISUAL ARTS TEACHER Active ZITHROMAX Z-REYNA 250 MG TABS 2 today, then 1 daily for 4 days 201 09/29/14 AZITHROMYCIN 01642272056 No Longer Active Elise Whitmore APRN Active TUSSIONEX PENNKINETIC ER 10-8 MG/5ML LQCR 5ml po q12hr PRN Cough HYDROCOD POLST-CHLORPHEN POLST 93270814699 No Longer Active Elise Whitmore APRN Active MUCINEX D 60-600 MG [id number] 1 tab po q am PSEUDOEPHEDRINE-GUAIFENESIN 38927021079 Active Jillina Frazell VISUAL ARTS TEACHER Active PREDNISONE 20 MG TAB 2 tabs daily for 3 days, 1 t ab daily for 3 days, 1/2 tab daily for 2 days PREDNISONE 19108478598 No Longer Active Jillina Frazell VISUAL ARTS TEACHER Active AMOXICILLIN 500 MG CAPS 2 po BID x 10 days AMOX ICILLIN 08995085130 No Longer Active Jillina Frazell VISUAL ARTS TEACHER Active SINGULAIR 10 MG TABS 1 po qday for allergies 2 MONTELUKAST SODIUM 98000404475 No Longer Active Carlton Hu MD Acti ve LEVAQUIN 500 MG TAB 1 tablet by mouth daily LEV OFLOXACIN 64678222321 No Longer Active Carlton Hu MD Active FLUTICASONE PROPIONATE 50 MCG/ACT SUSP 2 sprays each n ostril daily for 2 weeks, then 1 spray each nostril daily. FLUTICASONE PRO PIONATE 26729291035 Active Elise Whitmore APRN Active ZITHROMAX 250 MG TAB 2 po today, then 1 po q days 2-5 AZITHROMYCIN 34101597953 No Longer Active Elise Whitmore APRN Acti ve XANAX 0.5 MG TABS one tablet by mouth daily prn anxiety ALPRAZOLAM 95785249991 Active Elise Whitmore APRN Active CYMBALTA 30 MG CPEP 1 cap by mouth daily for depression DULOXETINE HCL 40299841104 Active Carlton Hu MD Active CEFDINIR 300 MG CAPS 1 po BID x 10 days CEFDINI R 78289426745 No Longer Active Carlton Hu MD Active ZOCOR 40 MG TAB 1 tab by mouth daily SIMVASTATI N 07702160855 No Longer Active Carlton Hu MD Active CYCLOBENZAPRINE HCL 10 MG TABS 1 tablet by mouth BID prn had cherelle n CYCLOBENZAPRINE HCL 37307053772 No Longer Active Carlton Hu MD Active LEVOFLOXACIN 500 MG ORAL TABS 1 tab PO daily x 10 days LEVOFLOXACIN 27468533998 No Longer Active Carlton Hu MD Acti ve PREDNISONE 20 MG ORAL TABS 3 tab PO qd x 2d, 2 tab PO qd x 2d, 1 tab PO qd x 2d, 1/2 tab PO qd x 2d PREDNISONE 45772198774 No Longer Active Carlton Hu MD Active FLUTICASONE PROPIONATE 50 MCG/ACT SUSP 1 to 2 sprays each no stril daily FLUTICASONE PROPIONATE 70294461873 No Longer Active T jaz HERNANDEZ Active CHERATUSSIN AC 100-10 MG/5ML SYRP 1 tsp by mouth every 4 hours as needed for cough GUAIFENESIN-CODEINE 94683802540 No Longer Activ e Blaine HERNANDEZ Active PROMETHAZINE-CODEINE 6.25-10 MG/5ML SYRP 1 tsp by mout h every 6 hours if needed for cough PROMETHAZINE-CODEINE 34114550877 No Long er Active Blaine HERNANDEZ Active CHERATUSSIN AC 100-10 MG/5ML SYRP 1 tsp by mouth every 4 hours as needed for cough GUAIFENESIN-CODEINE 15768325385 No Longer Activ e Blaine HERNANDEZ Active ZITHROMAX Z-REYNA 250 MG TABS 2 today, then 1 daily for 4 days 201 08/30/03 AZITHROMYCIN 54877029471 No Longer Active Columba Parrish Act nael ZITHROMAX 250 MG TAB 2 po today, then 1 po q days 2-5 AZITHROMYCIN 29529550939 No Longer Active Carlton Hu MD Acti ve ZITHROMAX Z-REYNA 250 MG TABS 2 today, then 1 daily for 4 days 201 08/07/20 AZITHROMYCIN 66025256485 No Longer Active Columba Parrish Act nael AUGMENTIN 875-125 MG TAB 1 po BID x 10 days AMOXICILLIN- POT CLAVULANATE 88633619712 No Longer Active Diya De Guzman APRN Active ZITHROMAX 250 MG TAB 2 po today, then 1 po q days 2-5 AZITHROMYCIN 80052528567 No Longer Active Carlton Hu MD Acti ve TRAMADOL HCL 50 MG TABS 1 po tid with ES Tylenol TRAMADOL HCL 08318736419 Active Carlton Hu MD Active PREMARIN 0.625 MG TABS TAKE 1 TAB BY MOUTH DAILY 07/25 ESTROGENS CONJUGATED 24339876764 No Longer Active Ridge Bess DO Active CYMBALTA 30 MG CPEP 1 cap by mouth daily DULOXE SNEHA HCL 20752889688 No Longer Active Ridge Bess DO Active AMOXICILLIN 500 MG CAP 1 tab by mouth 3 times daily x 10 days 20 14/04/28 AMOXICILLIN 43173026609 No Longer Active Carlton Hu MD Active AMOXICILLIN 500 MG CAP 1 tab by mouth 3 times daily x 10 days 20 13/03/08 AMOXICILLIN 14329146136 No Longer Active Carlton Hu MD Active PROMETHAZINE-CODEINE 6.25-10 MG/5ML SYRP 1 tsp by mouth ever y 8 hours prn cough PROMETHAZINE-CODEINE 78445870337 No Longer Active Robert Hu MD Active MEDROL (REYNA) 4 MG TABS 6 pills x 1 day, then 5 pill s x 1 day then 4 pills x 1 day, then 3 pills x 1 day, then 2 pills x 1 day, then 1 pill x 1 day, then stop METHYLPREDNISOLONE 86925663835 No Longer Active Parris Mora MD Active AZITHROMYCIN 250 MG TABS 2 po qd x 1 day, then 1 po qd x 4 days AZITHROMYCIN 41262861478 No Longer Active Perez Mora MD Active SYMBICORT 160-4.5 MCG/ACT AERO 2 puffs bid with rinse after 2011 BUDESONIDE-FORMOTEROL FUMARATE 98345866161 No Longer Active Perez Mora MD Active LYRICA 75 MG CAPS TAKE 1 CAPSULE BY MOUTH TWICE DAILY 2013 PREGABALIN 30663293475 No Longer Active Carlton Hu MD Active LYRICA 100 MG CAPS Take 1 tab po BID for fibromyalgia PREGABALIN 96673701766 Active Carlton Hu MD Active TOPAMAX 25 MG TABS 1 qHS x 1 week, then 1 BID x 1 week, then 1 qAM and 2 qHS x 1 week, then 2 BID (migraine prevention) TOPIRAMAT E 06424612417 No Longer Active Jerica FUENTES Active TOPAMAX 50 MG TABS take 1 tab po BID for migraines. 12/07/10 TOPIRAMATE 18857106958 No Longer Active Jerica AGUILARA Ac tive TOPAMAX 100 MG TABS Take 1 tablet po bid TOPIRAMATE 4999 6407661 Active Elise Whitmore APRN Active TRIAMCINOLONE ACETONIDE 0.1 % CREA apply three times daily prn r beatrice TRIAMCINOLONE ACETONIDE 08302729378 No Longer Active Carlton Hu MD Active PAXIL 40 MG TAB take 1 tab po qday for depression PAROXETINE HCL 06602015967 Active Elise Whitmore APRN Active CHERATUSSIN AC 100-10 MG/5ML SYRP 5ml po q6hr PRN Cough GUAIFENESIN-CODEINE 16314607634 No Longer Active Carlton Hu MD Active MEDROL (REYNA) 4 MG TABS 6 tabs on day 1, 5 tabs on d ay 2, 4 tabs on day 3, 3 tabs on day 4, 2 tabs on day 5, 1 tab on day 6 METHYLPREDNISOLONE 65936193139 No Longer Active Perez Mora MD Active AZITHROMYCIN 250 MG TABS 2 po qd x 1 day, then 1 po qd x 4 days AZITHROMYCIN 07865309237 No Longer Active Perez Mora MD Active PROPRANOLOL HCL 60 MG TABS 1 PO Q D PROPRANOL OL HCL 13571970578 No Longer Active Perez Mora MD Active CHERATUSSIN AC 100-10 MG/5ML SYRP take one tsp po Q 6hours prn c ough GUAIFENESIN-CODEINE 20917515573 No Longer Active Perez Means Active AUGMENTIN 875-125 MG TAB 1 tab by mouth twice daily with food 20 12/03/31 AMOXICILLIN-POT CLAVULANATE 16571073817 No Longer Active Chanel Mora MD Active CHERATUSSIN AC 100-10 MG/5ML SYRP 1 tsp by mouth every 4 hours as needed for cough GUAIFENESIN-CODEINE 22147968269 No Longer Activ e Hugo Restrepo MD Active ACETAMINOPHEN-CODEINE #3 300-30 MG TABS 1 PO Q 4-6 HRS PRN PAIN ACETAMINOPHEN-CODEINE 95783116229 No Longer Active Hugo Restrepo MD Active LEVAQUIN 500 MG TABS take one po QD LEVOFLOXACI N 31642318558 No Longer Active Griffin HERNANDEZ Active PREDNISONE 20 MG TAB Take 3 tabs daily for 3 days , 2 tabs daily for 3 days, 1 tab daily for 3 days, 1/2 tab daily for 3 days P REDNISONE 07088754854 No Longer Active Carlton Hu MD Active AVELOX 400 MG TABS 1 tab by mouth daily MOXIFLO XACIN HCL 25488034700 No Longer Active Carlton Hu MD Active CHERATUSSIN AC 100-10 MG/5ML SYRP 1 tsp by mouth every 4 hours as needed for cough GUAIFENESIN-CODEINE 36461842524 No Longer Activ e Hugo Restrepo MD Active AVELOX 400 MG TABS 1 tab by mouth daily MOXIFLO XACIN HCL 23016631886 No Longer Active Marcy De La Rosa MD PhD Active TERBINAFINE HCL 250 MG TABS 1 qDay TERBINAF INE HCL 71839241309 No Longer Active Marcy De La Rosa MD PhD Active CHERATUSSIN AC 100-10 MG/5ML SYRP 1 tsp by mouth every 4 hours as needed for cough GUAIFENESIN-CODEINE 11762177715 No Longer Activ e Marcy De La Rosa MD PhD Active AVELOX 400 MG TABS 1 tab by mouth daily MOXIFLO XACIN HCL 96825705350 No Longer Active Marcy De La Rosa MD PhD Active HYDROCODONE-ACETAMINOPHEN 5-325 MG TABS 1 po q 6hr PRN cough 201 05/09/16 HYDROCODONE-ACETAMINOPHEN 69915658307 No Longer Active Marcy De La Rosa MD PhD Active PREDNISONE 20 MG TAB 2 tabs daily for 3 days, 1 t ab daily for 3 days, 1/2 tab daily for 2 days PREDNISONE 99167918745 No Longer Active Carlton Hu MD Active CEFDINIR 300 MG CAPS by mouth twice a day CEFDI ODILIA 00373614870 No Longer Active Carlton Hu MD Active HYDROCHLOROTHIAZIDE 25 MG TABS 1 TAB PO DAILY H YDROCHLOROTHIAZIDE 93162417262 Active Carlton Hu MD Active ACETAMINOPHEN-CODEINE #3 300-30 MG TABS 1 tablet po q 4-6hrs prn pain ACETAMINOPHEN-CODEINE 70158493893 No Longer Active Ridge Bess DO Active ZITHROMAX 250 MG TAB 2 po today, then 1 po q days 2-5 AZITHROMYCIN 00478715015 No Longer Active Carlton Hu MD Acti ve CHERATUSSIN AC 100-10 MG/5ML SYRP take 1 tsp po q4-6 hours prn c ough GUAIFENESIN-CODEINE 08369590832 No Longer Active Carlton Hu MD Active ACETAMINOPHEN-CODEINE #3 300-30 MG TABS 1 PO Q 4-6 HR PRN PAIN 2 ACETAMINOPHEN-CODEINE 23065510834 No Longer Active Carlton rich MD Active LORTAB 7.5-500 MG/15ML ELIX 7.5 ml po q 4 hour prn cough HYDROCODONE-ACETAMINOPHEN 19417729591 No Longer Active Carlton Hu MD Active PREDNISONE 20 MG TAB 1 po bid 3 days, then 1 po q day 3 days 201 05/03/07 PREDNISONE 11901608113 No Longer Active Carlton Hu MD Active ELMIRON 100 MG CAPS 2 tablets in the am and 1 tablet at hs PENTOSAN POLYSULFATE SODIUM 27078290030 Active Carlton Hu MD Ac tive CEFDINIR 300 MG CAPS by mouth twice a day CEFDI ODILIA 07910214048 No Longer Active Carlton Hu MD Active CEFDINIR 300 MG CAPS by mouth twice a day CEFDI ODILIA 74753582713 No Longer Active Carlton Hu MD Active CEFDINIR 300 MG CAPS by mouth twice a day CEFDI ODILIA 80763969221 No Longer Active Carlton Hu MD Active TESSALON PERLES 100 MG CAP 1 tablet by mouth 3 times daily a s needed for cough BENZONATATE 45130026610 No Longer Active Carlton bustamante MD Active CEFDINIR 300 MG CAPS by mouth twice a day CEFDI ODILIA 79005584308 No Longer Active Carlton Hu MD Active ZITHROMAX Z-REYNA 250 MG TABS 2 today, then 1 daily for 4 days 201 04/09/17 AZITHROMYCIN 40410120656 No Longer Active Hugo Restrepo MD Active TESSALON PERLES 100 MG CAP 1 tablet by mouth 3 times daily a s needed for cough TESSALON PERLES 100 MG CAP 868753 BENZONATATE I nactive PREDNISONE 20 MG TAB 1 po bid 3 days, then 1 po q day 3 days 201 05/03/07 PREDNISONE 20 MG TAB 266494 PREDNISONE Inactive LORTAB 7.5-500 MG/15ML ELIX 7.5 ml po q 4 hour prn cough LORTAB 7.5-500 MG/15ML ELIX HYDROCODONE-ACETAMINOPHEN Inacti ve ACETAMINOPHEN-CODEINE #3 300-30 MG TABS 1 PO Q 4-6 HR PRN PAIN 2 ACETAMINOPHEN-CODEINE #3 300-30 MG TABS 785496 ACETAMIN OPHEN-CODEINE Inactive CHERATUSSIN AC 100-10 MG/5ML SYRP take 1 tsp po q4-6 hours prn c ough CHERATUSSIN AC 100-10 MG/5ML SYRP 721269 GUAIFENESIN-CO DEINE Inactive ACETAMINOPHEN-CODEINE #3 300-30 MG TABS 1 tablet po q 4-6hrs prn pain ACETAMINOPHEN-CODEINE #3 300-30 MG TABS 846478 ACETAMIN OPHEN-CODEINE Inactive HYDROCODONE-ACETAMINOPHEN 5-325 MG TABS 1 po q 6hr PRN cough 201 05/09/16 HYDROCODONE-ACETAMINOPHEN 5-325 MG TABS 703855 HYDROCODONE-ACETAMINOPHEN Inactive AVELOX 400 MG TABS 1 tab by mouth daily A VELOX 400 MG TABS 754750 MOXIFLOXACIN HCL Inactive CHERATUSSIN AC 100-10 MG/5ML SYRP 1 tsp by mouth every 4 hours as needed for cough CHERATUSSIN AC 100-10 MG/5ML SYRP 536623 GUAIFENESIN-CODEINE Inactive TERBINAFINE HCL 250 MG TABS 1 qDay TERBINAFINE HCL 250 MG TABS 644321 TERBINAFINE HCL Inactive CHERATUSSIN AC 100-10 MG/5ML SYRP 1 tsp by mouth every 4 hours as needed for cough CHERATUSSIN AC 100-10 MG/5ML SYRP 191323 GUAIFENESIN-CODEINE Inactive ACETAMINOPHEN-CODEINE #3 300-30 MG TABS 1 PO Q 4-6 HRS PRN PAIN ACETAMINOPHEN-CODEINE #3 300-30 MG TABS 012896 ACETAMINOPHEN-CODEIN E Inactive CHERATUSSIN AC 100-10 MG/5ML SYRP 1 tsp by mouth every 4 hours as needed for cough CHERATUSSIN AC 100-10 MG/5ML SYRP 101775 GUAIFENESIN-CODEINE Inactive AUGMENTIN 875-125 MG TAB 1 tab by mouth twice daily with food 20 12/03/31 AUGMENTIN 875-125 MG TAB 166952 AMOXICILLIN-POT CLAVULA EFE Inactive CHERATUSSIN AC 100-10 MG/5ML SYRP take one tsp po Q 6hours prn c ough CHERATUSSIN AC 100-10 MG/5ML SYRP 520441 GUAIFENESIN-CO DEINE Inactive PROPRANOLOL HCL 60 MG TABS 1 PO Q D P ROPRANOLOL HCL 60 MG TABS 449446 PROPRANOLOL HCL Inactive TOPAMAX 50 MG TABS take 1 tab po BID for migraines. 12/07/10 TOPAMAX 50 MG TABS 989240 TOPIRAMATE Inactive TOPAMAX 25 MG TABS 1 qHS x 1 week, then 1 BID x 1 week, then 1 qAM and 2 qHS x 1 week, then 2 BID (migraine prevention) TOPAMAX 2 5 MG TABS 849207 TOPIRAMATE Inactive LYRICA 75 MG CAPS TAKE 1 CAPSULE BY MOUTH TWICE DAILY LYRICA 75 MG CAPS PREGABALIN Inactive SYMBICORT 160-4.5 MCG/ACT AERO 2 puffs bid with rinse after 2011 SYMBICORT 160-4.5 MCG/ACT AERO BUDESONIDE-FORMOT SÁNCHEZ FUMARATE Inactive PROMETHAZINE-CODEINE 6.25-10 MG/5ML SYRP 1 tsp by mouth ever y 8 hours prn cough PROMETHAZINE-CODEINE 6.25-10 MG/5ML SYRP 746142 PROMETHAZINE-CODEINE Inactive CYMBALTA 30 MG CPEP 1 cap by mouth daily CYMBALTA 30 MG CPEP 501013 DULOXETINE HCL Inactive PREMARIN 0.625 MG TABS TAKE 1 TAB BY MOUTH DAILY 07/25 PREMARIN 0.625 MG TABS ESTROGENS CONJUGATED Inactive CHERATUSSIN AC 100-10 MG/5ML SYRP 1 tsp by mouth every 4 hours as needed for cough CHERATUSSIN AC 100-10 MG/5ML SYRP 761184 GUAIFENESIN-CODEINE Inactive PROMETHAZINE-CODEINE 6.25-10 MG/5ML SYRP 1 tsp by mout h every 6 hours if needed for cough PROMETHAZINE-CODEINE 6.25-10 MG/5ML SYRP 293617 PROMETHAZINE-CODEINE Inactive CHERATUSSIN AC 100-10 MG/5ML SYRP 1 tsp by mouth every 4 hours as needed for cough CHERATUSSIN AC 100-10 MG/5ML SYRP 483122 GUAIFENESIN-CODEINE Inactive FLUTICASONE PROPIONATE 50 MCG/ACT SUSP 1 to 2 sprays each no stril daily FLUTICASONE PROPIONATE 50 MCG/ACT SUSP 3916846 FLUTICASONE PROPIONATE Inactive PREDNISONE 20 MG ORAL TABS 3 tab PO qd x 2d, 2 tab PO qd x 2d, 1 tab PO qd x 2d, 1/2 tab PO qd x 2d PREDNISONE 20 MG ORAL TABS 010961 PREDNISONE Inactive LEVOFLOXACIN 500 MG ORAL TABS 1 tab PO daily x 10 days LEVOFLOXACIN 500 MG ORAL TABS 355485 LEVOFLOXACIN Inactive CYCLOBENZAPRINE HCL 10 MG TABS 1 tablet by mouth BID prn had cherelle n CYCLOBENZAPRINE HCL 10 MG TABS 896506 CYCLOBENZAPRINE H CL Inactive ZOCOR 40 MG TAB 1 tab by mouth daily ZOCOR 40 M G TAB 489972 SIMVASTATIN Inactive TUSSIONEX PENNKINETIC ER 10-8 MG/5ML [...] empty FLUTICASONE PROPIONATE 50 MCG/ACT SUSP 17 50937 FLUTICASONE PROPIONATE Inactive TUSSIONEX PENNKINETIC ER 10-8 MG/5ML ORAL LQCR 5 mL PO q 12 hrs PRN cough TUSSIONEX PENNKINETIC ER 10-8 MG/5ML ORAL LQCR HYDROCOD POLST-CHLORPHEN POLST Inactive ZITHROMAX Z-REYNA 250 MG TABS 2 today, then 1 daily for 4 days 201 04/09/17 ZITHROMAX Z-REYNA 250 MG TABS 9637793 AZITHROMYCIN Inac tive CEFDINIR 300 MG CAPS [...] q days 2-5 ZITHROMAX 250 MG TAB 0821215 AZITHROMYCIN Inactive CEFDINIR 300 MG CAPS by mouth twice a day CEFDINIR 300 MG CAPS 339396 CEFDINIR Inactive PREDNISONE 20 MG TAB 2 tabs daily for 3 days, 1 t ab daily for 3 days, 1/2 tab daily for 2 days PREDNISONE 20 MG TAB 560198 PREDNISON E Inactive AVELOX 400 MG TABS 1 tab by mouth daily A VELOX 400 MG TABS 943617 MOXIFLOXACIN HCL Inactive AVELOX 400 MG TABS 1 tab by mouth daily A VELOX 400 MG TABS 983818 MOXIFLOXACIN HCL Inactive PREDNISONE 20 MG TAB Take 3 tabs daily for 3 days , 2 tabs daily for 3 days, 1 tab daily for 3 days, 1/2 tab daily for 3 days PREDNISONE 20 MG TAB 373507 PREDNISONE Inactive LEVAQUIN 500 MG TABS take one po QD LEVAQUIN 50 0 MG TABS 078707 LEVOFLOXACIN Inactive AZITHROMYCIN 250 MG TABS 2 po qd x 1 day, then 1 po qd x 4 days AZITHROMYCIN 250 MG TABS 3951922 AZITHROMYCIN Inactiv e MEDROL (REYNA) 4 MG TABS 6 tabs on day 1, 5 tabs on d ay 2, 4 tabs on day 3, 3 tabs on day 4, 2 tabs on day 5, 1 tab on day 6 MEDROL (REYNA) 4 MG TABS 273084 METHYLPREDNISOLONE Inactive CHERATUSSIN AC 100-10 MG/5ML SYRP 5ml po q6hr PRN Cough CHERATUSSIN AC 100-10 MG/5ML SYRP 844597 GUAIFENESIN-CODEINE Inacti ve TRIAMCINOLONE ACETONIDE 0.1 % CREA apply three times daily prn r beatrice TRIAMCINOLONE ACETONIDE 0.1 % CREA 9557440 TRIAMCINOLONE ACETONIDE Inactive AZITHROMYCIN 250 MG TABS 2 po qd x 1 day, then 1 po qd x 4 days AZITHROMYCIN 250 MG TABS 4877433 AZITHROMYCIN Inactiv e MEDROL (REYNA) 4 MG TABS 6 pills x 1 day, then 5 pill s x 1 day then 4 pills x 1 day, then 3 pills x 1 day, then 2 pills x 1 day, then 1 pill x 1 day, then stop MEDROL (REYNA) 4 MG TABS 320233 METHYLPREDNISOLONE Inactive AMOXICILLIN 500 MG CAP 1 tab by mouth 3 times daily x 10 days 20 13/03/08 AMOXICILLIN 500 MG CAP 347251 AMOXICILLIN Inactive AMOXICILLIN 500 MG CAP 1 tab by mouth 3 times daily x 10 days 20 14/04/28 AMOXICILLIN 500 MG CAP 992473 AMOXICILLIN Inactive ZITHROMAX 250 MG TAB 2 po today, then 1 po q days 2-5 ZITHROMAX 250 MG TAB 6716752 AZITHROMYCIN Inactive AUGMENTIN 875-125 MG TAB 1 po BID x 10 days AUGMENTIN 875- 125 MG TAB 603325 AMOXICILLIN-POT CLAVULANATE Inactive ZITHROMAX Z-REYNA 250 MG TABS 2 today, then 1 daily for 4 days 201 08/07/20 ZITHROMAX Z-REYNA 250 MG TABS 8536821 AZITHROMYCIN Inac tive ZITHROMAX 250 MG TAB 2 po today, then 1 po q days 2-5 ZITHROMAX 250 MG TAB 8125740 AZITHROMYCIN Inactive ZITHROMAX Z-REYNA 250 MG TABS 2 today, then 1 daily for 4 days 201 08/30/03 ZITHROMAX Z-REYNA 250 MG TABS 9374601 AZITHROMYCIN Inac tive CEFDINIR 300 MG CAPS 1 po BID x 10 days C EFDINIR 300 MG CAPS 865442 CEFDINIR Inactive ZITHROMAX 250 MG TAB 2 po today, then 1 po q days 2-5 ZITHROMAX 250 MG TAB 6167702 AZITHROMYCIN Inactive LEVAQUIN 500 MG TAB 1 tablet by mouth daily LEVAQUIN 500 MG TAB 162012 LEVOFLOXACIN Inactive SINGULAIR 10 MG TABS 1 po qday for allergies 2 SINGULAIR 10 MG TABS 20010504 MONTELUKAST SODIUM Inactive AMOXICILLIN 500 MG CAPS 2 po BID x 10 days AMOXICILLIN 500 MG CAPS 675738 AMOXICILLIN Inactive PREDNISONE 20 MG TAB 2 tabs daily for 3 days, 1 t ab daily for 3 days, 1/2 tab daily for 2 days PREDNISONE 20 MG TAB 487120 PREDNISON E Inactive ZITHROMAX Z-REYNA 250 MG TABS 2 today, then 1 daily for 4 days 201 09/29/14 ZITHROMAX Z-REYNA 250 MG TABS 2974860 AZITHROMYCIN Inac tive PREDNISONE 20 MG TAB 2 tabs daily for 3 days, 1 t ab daily for 3 days, 1/2 tab daily for 2 days PREDNISONE 20 MG TAB 948718 PREDNISON E Inactive Vital Signs Date Name [...] Measured Encounters Code Encounter Date Provider Facility CPT-86187 Level 3 Est. Patient 13:42:38 CDT Itlao [facility] CPT-75572 Level 3 Est. Patient 13:23:51 CDT Diya cobian [facility] CPT-91723 Level 3 Est. Patient 14:22:19 CEO NA Diya cobian [facility] CPT-55365 Level 3 Est. Patient 10:11:46 CDT Carlton rich MD [facility] CPT-86183 Level 3 Est. Patient 17:29:43 CDT Elise Guerrero chelly [employer] [facility] CPT-24297 Level 3 Est. Patient 11:58:06 CDT Elise Cesar spaulding [employer] [facility] CPT-55359 Level 4 Est. Patient 14:36:51 CDT Carlton rich MD [facility]-38693 Level 3 Est. Patient 18:16:00 CEO NA Blaine Freeman [facility] CPT-65532 Level 3 Est. Patient 09:45:49 CEO NA Carlton rich MD [facility]-34878 Level 3 Est. Patient 13:19:20 CDT Carlton rich MD [facility] CPT-91135 Level 3 Est. Patient 13:06:43 CDT Ridge tam DO [facility] CPT-57512 Level 3 Est. Patient 10:03:07 CDT Perez Mora MD [facility] CPT-06877 Level 3 Est. Patient 19:50:35 CEO NA Carlton rich MD [facility] CPT-60590 Level 4 Est. Patient 18:05:01 CEO NA Carlton rich MD [facility] CPT-18361 Level 3 Est. Patient 10:45:55 CEO NA Hugo Restrepo MD [facility] CPT-26586 Level 3 Est. Patient 14:12:49 CDT Griffin lincoln [facility]-20863 Level 3 Est. Patient 17:37:24 CDT Carlton rich MD [facility] CPT-53821 Level 3 Est. Patient 16:51:54 CDT Carlton rich MD [facility] CPT-70074 Level 3 Est. Patient 12:18:11 CDT Hugo Restrepo MD [facility] CPT-88982 Level 3 Est. Patient 11:30:25 CDT Marcy crisostomo MD PhD [facility] CPT-70273 Level 3 Est. Patient 12:00:47 CEO NA Carlton rich MD [facility] CPT-08971 Level 3 Est. Patient 16:31:06 CEO NA Carlton rich MD [facility] CPT-31559 Level 3 Est. Patient 16:23:24 CEO NA Ridge tam [facility] CPT-15651 Level 3 Est. Patient 12:34:12 CDT Carlton rich MD [facility] CPT-54929 Level 2 Est. Patient 15:43:33 CDT Robi armstrong MD [facility] CPT-49451 Level 4 Est. Patient 14:04:44 CDT Carlton rich MD [facility] CPT-22050 Level 3 Est. Patient 05:47:59 CDT Ridge tam [facility] CPT-34098 Level 3 Est. Patient 13:12:53 CEO NA Carlton rich MD [facility] CPT-80041 Level 3 Est. Patient 14:26:53 CDT Hugo Restrepo MD [facility] Procedures Code Procedure Name Date Entry Date Standard Desc ription CPT-J0696 Rocephin 1gm Inj Solr 14:32:13 CDT CPT-J1020 Depo Medrol 60 mg (Methyl Prednisolone A cetate) 14:32:13 CDT CPT-J1100 Decadron 6mg (Dexamethasone) 14:32:13 CDT 2 CPT-45587 Hip bilat min 2V w AP pelvis 13:16:20 CDT 2 CPT-52380 Pelvis only 13:07:33 CDT CPT-15584 Spec Collection and Handling Fee 11:25:12 C DT CPT-38390 Fluzone Quadrivalent Intramuscular Suspe nsion 0.5 ML 14:31:55 CDT CPT-17572 Abx/Therapy Injection 13:28:47 CEO NA CPT-J2930 Solu Medrol 125 mg (Methyl Prednisolone Sodium Succinate) 12:00:47 CEO NA CPT-59764 Venipuncture Draw Fee 11:33:31 CDT CPT-45936 EKG Trac and Interp 11:21:09 CDT CPT-89477 Chest 2V Frontal and Lat 11:21:09 CDT 12/15 CPT-73598 Venipuncture Draw Fee 08:02:34 CDT CPT-47904 Chest 2V Frontal and Lat 05:47:59 CDT 06/05
--- OUTSIDE RECORDS SUMMARY | 2019-10-08 08:39 | XMS REPORT | Clinical Summary ---
Author Author Caitlin, Juliana Martinez Organization [facility] Address Unknown Phone Unavailable Allergies, Adverse Reactions, [...] sites Sinusitis 473.9 Active Diya De Guzman MANAGER OF PMO Unspecified sinusitis (chronic) Bronchitis-Acute 466.0 Active Carlton [...] tablet by mouth daily prn anxiety ALPRAZOLAM 51269497389 Active Carlton Hu MD Active CYMBALTA 30 MG CPEP 1 cap by mouth daily for depression DULOXETINE HCL 41710632754 Active Carlton Hu MD Active CEFDINIR 300 MG CAPS 1 po BID x 10 days CEFDINI R 95330112237 No Longer Active Carlton Hu MD Active ZOCOR 40 MG TAB 1 tab by mouth daily SIMVASTATI N 04986999128 No Longer Active Carlton Hu MD Active CYCLOBENZAPRINE HCL 10 MG TABS 1 tablet by mouth BID prn had cherelle n CYCLOBENZAPRINE HCL 44422097413 No Longer Active Carlton Hu MD Active LEVOFLOXACIN 500 MG ORAL TABS 1 tab PO daily x 10 days LEVOFLOXACIN 57531472460 No Longer Active Carlton Hu MD Acti ve PREDNISONE 20 MG ORAL TABS 3 tab PO qd x 2d, 2 tab PO qd x 2d, 1 tab PO qd x 2d, 1/2 tab PO qd x 2d PREDNISONE 79493365832 No Longer Active Carlton Hu MD Active TUSSIONEX PENNKINETIC ER 10-8 MG/5ML ORAL LQCR 5 mL PO q 12 hrs PRN cough HYDROCOD POLST-CHLORPHEN POLST 06203955049 Active Carlton Hu MD Active FLUTICASONE PROPIONATE 50 MCG/ACT SUSP 1 to 2 sprays each no stril daily FLUTICASONE PROPIONATE 80294538605 No Longer Active T jaz HERNANDEZ Active CHERATUSSIN AC 100-10 MG/5ML SYRP 1 tsp by mouth every 4 hours as needed for cough GUAIFENESIN-CODEINE 39926803328 No Longer Activ e Blanie HERNANDEZ Active PROMETHAZINE-CODEINE 6.25-10 MG/5ML SYRP 1 tsp by mout h every 6 hours if needed for cough PROMETHAZINE-CODEINE 29197724359 No Long er Active Blaine HERNANDEZ Active CHERATUSSIN AC 100-10 MG/5ML SYRP 1 tsp by mouth every 4 hours as needed for cough GUAIFENESIN-CODEINE 35714370138 No Longer Activ Jorge Luis HERNANDEZ Active ZITHROMAX Z-REYNA 250 MG TABS 2 today, then 1 daily for 4 days 201 08/30/03 AZITHROMYCIN 80425180425 No Longer Active Columba Raida Act nael ZITHROMAX 250 MG TAB 2 po today, then 1 po q days 2-5 AZITHROMYCIN 57632928792 No Longer Active Carlton Hu MD Acti ve ZITHROMAX Z-REYNA 250 MG TABS 2 today, then 1 daily for 4 days 201 08/07/20 AZITHROMYCIN 44722940525 No Longer Active Columba Raida Act nael AUGMENTIN 875-125 MG TAB 1 po BID x 10 days AMOXICILLIN- POT CLAVULANATE 39050981192 No Longer Active Diya De Guzman APRN Active ZITHROMAX 250 MG TAB 2 po today, then 1 po q days 2-5 AZITHROMYCIN 93682642560 No Longer Active Carlton Hu MD Acti ve TRAMADOL HCL 50 MG TABS 1 po tid with ES Tylenol TRAMADOL HCL 71973402137 Active Carlton Hu MD Active PREMARIN 0.625 MG TABS TAKE 1 TAB BY MOUTH DAILY 07/25 ESTROGENS CONJUGATED 47249286041 No Longer Active Ridge Bess DO Active CYMBALTA 30 MG CPEP 1 cap by mouth daily DULOXE SNEHA HCL 10408874445 No Longer Active Ridge Bess DO Active AMOXICILLIN 500 MG CAP 1 tab by mouth 3 times daily x 10 days 20 14/04/28 AMOXICILLIN 85513682540 No Longer Active Carlton Hu MD Active AMOXICILLIN 500 MG CAP 1 tab by mouth 3 times daily x 10 days 20 13/03/08 AMOXICILLIN 04015812240 No Longer Active Carlton Hu MD Active PROMETHAZINE-CODEINE 6.25-10 MG/5ML SYRP 1 tsp by mouth ever y 8 hours prn cough PROMETHAZINE-CODEINE 22440260793 No Longer Active Robert Hu MD Active MEDROL (REYNA) 4 MG TABS 6 pills x 1 day, then 5 pill s x 1 day then 4 pills x 1 day, then 3 pills x 1 day, then 2 pills x 1 day, then 1 pill x 1 day, then stop METHYLPREDNISOLONE 91996446963 No Longer Active Parris Mora MD Active AZITHROMYCIN 250 MG TABS 2 po qd x 1 day, then 1 po qd x 4 days AZITHROMYCIN 71726649525 No Longer Active Perez Mora MD Active SYMBICORT 160-4.5 MCG/ACT AERO 2 puffs bid with rinse after 2011 BUDESONIDE-FORMOTEROL FUMARATE 59049644149 No Longer Active Perez Mora MD Active LYRICA 75 MG CAPS TAKE 1 CAPSULE BY MOUTH TWICE DAILY 2013 PREGABALIN 02949494337 No Longer Active Carlton Hu MD Active LYRICA 100 MG CAPS Take 1 tab po BID for fibromyalgia PREGABALIN 81642409747 Active Carlton Hu MD Active TOPAMAX 25 MG TABS 1 qHS x 1 week, then 1 BID x 1 week, then 1 qAM and 2 qHS x 1 week, then 2 BID (migraine prevention) TOPIRAMAT E 05745740331 No Longer Active Jerica FUENTES Active TOPAMAX 50 MG TABS take 1 tab po BID for migraines. 12/07/10 TOPIRAMATE 65113195902 No Longer Active Jerica Osei RMA Ac tive TOPAMAX 100 MG TABS Take 1 tablet po bid TOPIRAMATE 4999 7170091 Active Carlotn Hu MD Active TRIAMCINOLONE ACETONIDE 0.1 % CREA apply three times daily prn r beatrice TRIAMCINOLONE ACETONIDE 65186901958 No Longer Active Carlton Hu MD Active PAXIL 40 MG TAB take 1 tab po qday for depression PAROXETINE HCL 41909087946 Active Elise Whitmore APRN Active CHERATUSSIN AC 100-10 MG/5ML SYRP 5ml po q6hr PRN Cough GUAIFENESIN-CODEINE 53236392533 No Longer Active Carlton Hu MD Active MEDROL (REYNA) 4 MG TABS 6 tabs on day 1, 5 tabs on d ay 2, 4 tabs on day 3, 3 tabs on day 4, 2 tabs on day 5, 1 tab on day 6 METHYLPREDNISOLONE 51989200170 No Longer Active Perez Mora MD Active AZITHROMYCIN 250 MG TABS 2 po qd x 1 day, then 1 po qd x 4 days AZITHROMYCIN 49230493581 No Longer Active Perez Mora MD Active PROPRANOLOL HCL 60 MG TABS 1 PO Q D PROPRANOL OL HCL 17157869907 No Longer Active Perez Mora MD Active CHERATUSSIN AC 100-10 MG/5ML SYRP take one tsp po Q 6hours prn c ough GUAIFENESIN-CODEINE 95095666939 No Longer Active Perez Means Active AUGMENTIN 875-125 MG TAB 1 tab by mouth twice daily with food 20 12/03/31 AMOXICILLIN-POT CLAVULANATE 24291036180 No Longer Active Chanel Mora MD Active CHERATUSSIN AC 100-10 MG/5ML SYRP 1 tsp by mouth every 4 hours as needed for cough GUAIFENESIN-CODEINE 23067398079 No Longer Activ e Hugo Restrepo MD Active ACETAMINOPHEN-CODEINE #3 300-30 MG TABS 1 PO Q 4-6 HRS PRN PAIN ACETAMINOPHEN-CODEINE 25947765162 No Longer Active Hugo Restrepo MD Active LEVAQUIN 500 MG TABS take one po QD LEVOFLOXACI N 93010668784 No Longer Active Griffin HERNANDEZ Active PREDNISONE 20 MG TAB Take 3 tabs daily for 3 days , 2 tabs daily for 3 days, 1 tab daily for 3 days, 1/2 tab daily for 3 days P REDNISONE 85928175521 No Longer Active Carlton Hu MD Active AVELOX 400 MG TABS 1 tab by mouth daily MOXIFLO XACIN HCL 44892695075 No Longer Active Carlton Hu MD Active CHERATUSSIN AC 100-10 MG/5ML SYRP 1 tsp by mouth every 4 hours as needed for cough GUAIFENESIN-CODEINE 42796526173 No Longer Activ e Hugo Restrepo MD Active AVELOX 400 MG TABS 1 tab by mouth daily MOXIFLO XACIN HCL 73003970629 No Longer Active Marcy De La Rosa MD PhD Active TERBINAFINE HCL 250 MG TABS 1 qDay TERBINAF INE HCL 53509222381 No Longer Active Marcy De La Rosa MD PhD Active CHERATUSSIN AC 100-10 MG/5ML SYRP 1 tsp by mouth every 4 hours as needed for cough GUAIFENESIN-CODEINE 16762148398 No Longer Activ e Marcy De La Rosa MD PhD Active AVELOX 400 MG TABS 1 tab by mouth daily MOXIFLO XACIN HCL 41252876346 No Longer Active Marcy De La Rosa MD PhD Active HYDROCODONE-ACETAMINOPHEN 5-325 MG TABS 1 po q 6hr PRN cough 201 05/09/16 HYDROCODONE-ACETAMINOPHEN 70963061621 No Longer Active Marcy De La Rosa MD PhD Active PREDNISONE 20 MG TAB 2 tabs daily for 3 days, 1 t ab daily for 3 days, 1/2 tab daily for 2 days PREDNISONE 43466326479 No Longer Active Carlton Hu MD Active CEFDINIR 300 MG CAPS by mouth twice a day CEFDI ODILIA 49541380399 No Longer Active Carlton Hu MD Active HYDROCHLOROTHIAZIDE 25 MG TABS 1 TAB PO DAILY H YDROCHLOROTHIAZIDE 23849724886 Active Carlton Hu MD Active ACETAMINOPHEN-CODEINE #3 300-30 MG TABS 1 tablet po q 4-6hrs prn pain ACETAMINOPHEN-CODEINE 56673246804 No Longer Active Ridge Bess DO Active ZITHROMAX 250 MG TAB 2 po today, then 1 po q days 2-5 AZITHROMYCIN 84970283568 No Longer Active Carlton Hu MD Acti ve CHERATUSSIN AC 100-10 MG/5ML SYRP take 1 tsp po q4-6 hours prn c ough GUAIFENESIN-CODEINE 71896994242 No Longer Active Carlton Hu MD Active ACETAMINOPHEN-CODEINE #3 300-30 MG TABS 1 PO Q 4-6 HR PRN PAIN 2 ACETAMINOPHEN-CODEINE 74467549349 No Longer Active Carlton rich MD Active LORTAB 7.5-500 MG/15ML ELIX 7.5 ml po q 4 hour prn cough HYDROCODONE-ACETAMINOPHEN 47197265938 No Longer Active Carlton Hu MD Active PREDNISONE 20 MG TAB 1 po bid 3 days, then 1 po q day 3 days 201 05/03/07 PREDNISONE 13869947599 No Longer Active Carlton Hu MD Active ELMIRON 100 MG CAPS 2 tablets in the am and 1 tablet at hs PENTOSAN POLYSULFATE SODIUM 45744573129 Active Carlton Hu MD Ac tive CEFDINIR 300 MG CAPS by mouth twice a day CEFDI ODILIA 42506662752 No Longer Active Carlton Hu MD Active CEFDINIR 300 MG CAPS by mouth twice a day CEFDI ODILIA 94405354595 No Longer Active Carlton Hu MD Active CEFDINIR 300 MG CAPS by mouth twice a day CEFDI ODILIA 33919294201 No Longer Active Carlton Hu MD Active TESSALON PERLES 100 MG CAP 1 tablet by mouth 3 times daily a s needed for cough BENZONATATE 00918311343 No Longer Active Carlton bustamante MD Active CEFDINIR 300 MG CAPS by mouth twice a day CEFDI ODILIA 64811833122 No Longer Active Carlton Hu MD Active ZITHROMAX Z-REYNA 250 MG TABS 2 today, then 1 daily for 4 days 201 04/09/17 AZITHROMYCIN 63954557872 No Longer Active Hugo Restrepo MD Active TESSALON PERLES 100 MG CAP 1 tablet by mouth 3 times daily a s needed for cough TESSALON PERLES 100 MG CAP 615454 BENZONATATE I nactive PREDNISONE 20 MG TAB 1 po bid 3 days, then 1 po q day 3 days 201 05/03/07 PREDNISONE 20 MG TAB 396397 PREDNISONE Inactive LORTAB 7.5-500 MG/15ML ELIX 7.5 ml po q 4 hour prn cough LORTAB 7.5-500 MG/15ML ELIX HYDROCODONE-ACETAMINOPHEN Inacti ve ACETAMINOPHEN-CODEINE #3 300-30 MG TABS 1 PO Q 4-6 HR PRN PAIN 2 ACETAMINOPHEN-CODEINE #3 300-30 MG TABS 867032 ACETAMIN OPHEN-CODEINE Inactive CHERATUSSIN AC 100-10 MG/5ML SYRP take 1 tsp po q4-6 hours prn c ough CHERATUSSIN AC 100-10 MG/5ML SYRP 048978 GUAIFENESIN-CO DEINE Inactive ACETAMINOPHEN-CODEINE #3 300-30 MG TABS 1 tablet po q 4-6hrs prn pain ACETAMINOPHEN-CODEINE #3 300-30 MG TABS 346602 ACETAMIN OPHEN-CODEINE Inactive HYDROCODONE-ACETAMINOPHEN 5-325 MG TABS 1 po q 6hr PRN cough 201 05/09/16 HYDROCODONE-ACETAMINOPHEN 5-325 MG TABS 542650 HYDROCODONE-ACETAMINOPHEN Inactive AVELOX 400 MG TABS 1 tab by mouth daily A VELOX 400 MG TABS 613142 MOXIFLOXACIN HCL Inactive CHERATUSSIN AC 100-10 MG/5ML SYRP 1 tsp by mouth every 4 hours as needed for cough CHERATUSSIN AC 100-10 MG/5ML SYRP 012460 GUAIFENESIN-CODEINE Inactive TERBINAFINE HCL 250 MG TABS 1 qDay TERBINAFINE HCL 250 MG TABS 440506 TERBINAFINE HCL Inactive CHERATUSSIN AC 100-10 MG/5ML SYRP 1 tsp by mouth every 4 hours as needed for cough CHERATUSSIN AC 100-10 MG/5ML SYRP 546411 GUAIFENESIN-CODEINE Inactive ACETAMINOPHEN-CODEINE #3 300-30 MG TABS 1 PO Q 4-6 HRS PRN PAIN ACETAMINOPHEN-CODEINE #3 300-30 MG TABS 473873 ACETAMINOPHEN-CODEIN E Inactive CHERATUSSIN AC 100-10 MG/5ML SYRP 1 tsp by mouth every 4 hours as needed for cough CHERATUSSIN AC 100-10 MG/5ML SYRP 640161 GUAIFENESIN-CODEINE Inactive AUGMENTIN 875-125 MG TAB 1 tab by mouth twice daily with food 20 12/03/31 AUGMENTIN 875-125 MG TAB 349780 AMOXICILLIN-POT CLAVULA EFE Inactive CHERATUSSIN AC 100-10 MG/5ML SYRP take one tsp po Q 6hours prn c ough CHERATUSSIN AC 100-10 MG/5ML SYRP 250458 GUAIFENESIN-CO DEINE Inactive PROPRANOLOL HCL 60 MG TABS 1 PO Q D P ROPRANOLOL HCL 60 MG TABS 707489 PROPRANOLOL HCL Inactive TOPAMAX 50 MG TABS take 1 tab po BID for migraines. 12/07/10 TOPAMAX 50 MG TABS 079052 TOPIRAMATE Inactive TOPAMAX 25 MG TABS 1 qHS x 1 week, then 1 BID x 1 week, then 1 qAM and 2 qHS x 1 week, then 2 BID (migraine prevention) TOPAMAX 2 5 MG TABS 279848 TOPIRAMATE Inactive LYRICA 75 MG CAPS TAKE 1 CAPSULE BY MOUTH TWICE DAILY LYRICA 75 MG CAPS PREGABALIN Inactive SYMBICORT 160-4.5 MCG/ACT AERO 2 puffs bid with rinse after 2011 SYMBICORT 160-4.5 MCG/ACT AERO BUDESONIDE-FORMOT SÁNCHEZ FUMARATE Inactive PROMETHAZINE-CODEINE 6.25-10 MG/5ML SYRP 1 tsp by mouth ever y 8 hours prn cough PROMETHAZINE-CODEINE 6.25-10 MG/5ML SYRP 757407 PROMETHAZINE-CODEINE Inactive CYMBALTA 30 MG CPEP 1 cap by mouth daily CYMBALTA 30 MG CPEP 135973 DULOXETINE HCL Inactive PREMARIN 0.625 MG TABS TAKE 1 TAB BY MOUTH DAILY 07/25 PREMARIN 0.625 MG TABS ESTROGENS CONJUGATED Inactive CHERATUSSIN AC 100-10 MG/5ML SYRP 1 tsp by mouth every 4 hours as needed for cough CHERATUSSIN AC 100-10 MG/5ML SYRP 704626 GUAIFENESIN-CODEINE Inactive PROMETHAZINE-CODEINE 6.25-10 MG/5ML SYRP 1 tsp by mout h every 6 hours if needed for cough PROMETHAZINE-CODEINE 6.25-10 MG/5ML SYRP 745518 PROMETHAZINE-CODEINE Inactive CHERATUSSIN AC 100-10 MG/5ML SYRP 1 tsp by mouth every 4 hours as needed for cough CHERATUSSIN AC 100-10 MG/5ML SYRP 614480 GUAIFENESIN-CODEINE Inactive FLUTICASONE PROPIONATE 50 MCG/ACT SUSP 1 to 2 sprays each no stril daily FLUTICASONE PROPIONATE 50 MCG/ACT SUSP 558903 FLUTICASONE PROPIONATE Inactive PREDNISONE 20 MG ORAL TABS 3 tab PO qd x 2d, 2 tab PO qd x 2d, 1 tab PO qd x 2d, 1/2 tab PO qd x 2d PREDNISONE 20 MG ORAL TABS 118153 PREDNISONE Inactive LEVOFLOXACIN 500 MG ORAL TABS 1 tab PO daily x 10 days LEVOFLOXACIN 500 MG ORAL TABS 156736 LEVOFLOXACIN Inactive CYCLOBENZAPRINE HCL 10 MG TABS 1 tablet by mouth BID prn had cherelle n CYCLOBENZAPRINE HCL 10 MG TABS 346479 CYCLOBENZAPRINE H CL Inactive ZOCOR 40 MG TAB 1 tab by mouth daily ZOCOR 40 M G TAB 843940 SIMVASTATIN Inactive ZITHROMAX Z-REYNA 250 MG TABS 2 today, then 1 daily for 4 days 201 04/09/17 ZITHROMAX Z-REYNA 250 MG TABS 2292956 AZITHROMYCIN Inac tive CEFDINIR 300 MG CAPS by mouth twice a day CEFDINIR 300 MG CAPS 20020704 CEFDINIR Inactive CEFDINIR 300 MG CAPS by mouth twice a day CEFDINIR 300 MG CAPS 20020704 CEFDINIR Inactive CEFDINIR 300 MG CAPS by mouth twice a day CEFDINIR 300 MG CAPS 613287 CEFDINIR Inactive CEFDINIR 300 MG CAPS by mouth twice a day CEFDINIR 300 MG CAPS 20020704 CEFDINIR Inactive ZITHROMAX 250 MG TAB 2 po today, then 1 po q days 2-5 ZITHROMAX 250 MG TAB 9538573 AZITHROMYCIN Inactive CEFDINIR 300 MG CAPS by mouth twice a day CEFDINIR 300 MG CAPS 20020704 CEFDINIR Inactive PREDNISONE 20 MG TAB 2 tabs daily for 3 days, 1 t ab daily for 3 days, 1/2 tab daily for 2 days PREDNISONE 20 MG TAB 690198 PREDNISON E Inactive AVELOX 400 MG TABS 1 tab by mouth daily A VELOX 400 MG TABS 166115 MOXIFLOXACIN HCL Inactive AVELOX 400 MG TABS 1 tab by mouth daily A VELOX 400 MG TABS 033859 MOXIFLOXACIN HCL Inactive PREDNISONE 20 MG TAB Take 3 tabs daily for 3 days , 2 tabs daily for 3 days, 1 tab daily for 3 days, 1/2 tab daily for 3 days PREDNISONE 20 MG TAB 926508 PREDNISONE Inactive LEVAQUIN 500 MG TABS take one po QD LEVAQUIN 50 0 MG TABS 090189 LEVOFLOXACIN Inactive AZITHROMYCIN 250 MG TABS 2 po qd x 1 day, then 1 po qd x 4 days AZITHROMYCIN 250 MG TABS 5795365 AZITHROMYCIN Inactiv e MEDROL (REYNA) 4 MG TABS 6 tabs on day 1, 5 tabs on d ay 2, 4 tabs on day 3, 3 tabs on day 4, 2 tabs on day 5, 1 tab on day 6 MEDROL (REYNA) 4 MG TABS METHYLPREDNISOLONE Inactive CHERATUSSIN AC 100-10 MG/5ML SYRP 5ml po q6hr PRN Cough CHERATUSSIN AC 100-10 MG/5ML SYRP 047932 GUAIFENESIN-CODEINE Inacti ve TRIAMCINOLONE ACETONIDE 0.1 % CREA apply three times daily prn r beatrice TRIAMCINOLONE ACETONIDE 0.1 % CREA 1801721 TRIAMCINOLONE ACETONIDE Inactive AZITHROMYCIN 250 MG TABS 2 po qd x 1 day, then 1 po qd x 4 days AZITHROMYCIN 250 MG TABS 7179559 AZITHROMYCIN Inactiv e MEDROL (REYNA) 4 MG [...] days 20 13/03/08 AMOXICILLIN 500 MG CAP 579596 AMOXICILLIN Inactive AMOXICILLIN 500 MG CAP 1 tab by mouth 3 times daily x 10 days 20 14/04/28 AMOXICILLIN 500 MG CAP 916665 AMOXICILLIN Inactive ZITHROMAX 250 MG TAB 2 po today, then 1 po q days 2-5 ZITHROMAX 250 MG TAB 7320896 AZITHROMYCIN Inactive AUGMENTIN 875-125 MG TAB 1 po BID x 10 days AUGMENTIN 875- 125 MG TAB 468827 AMOXICILLIN-POT CLAVULANATE Inactive ZITHROMAX Z-REYNA 250 MG TABS 2 today, then 1 daily for 4 days 201 08/07/20 ZITHROMAX Z-REYNA 250 MG TABS 5262999 AZITHROMYCIN Inac tive ZITHROMAX 250 MG TAB 2 po today, then 1 po q days 2-5 ZITHROMAX 250 MG TAB 5608881 AZITHROMYCIN Inactive ZITHROMAX Z-REYNA 250 MG TABS 2 today, then 1 daily for 4 days 201 08/30/03 ZITHROMAX Z-REYNA 250 MG TABS 6514938 AZITHROMYCIN Inac tive CEFDINIR 300 MG CAPS 1 po BID x 10 days C EFDINIR 300 MG CAPS 712264 CEFDINIR Inactive Vital Signs Date Name Value [...] Measured Encounters Code Encounter Date Provider Facility CPT-01342 Level 4 Est. Patient 14:36:51 CDT Carlton rich MD [facility] CPT-42086 Level 3 Est. Patient 18:16:00 INFORMATION TECHNOLOGY SECURITY MANAGER Blaine HERNANDEZ [facility] CPT-88324 Level 3 Est. Patient 09:45:49 INFORMATION TECHNOLOGY SECURITY MANAGER Carlton rich MD [facility] CPT-31753 Level 3 Est. Patient 13:19:20 CDT Carlton rich MD [facility] CPT-32429 Level 3 Est. Patient 13:06:43 CDT Ridge tam DO [facility] CPT-14724 Level 3 Est. Patient 10:03:07 CDT Perez Mora MD [facility] CPT-86992 Level 3 Est. Patient 19:50:35 INFORMATION TECHNOLOGY SECURITY MANAGER Carlton rich MD [facility] CPT-21576 Level 4 Est. Patient 18:05:01 INFORMATION TECHNOLOGY SECURITY MANAGER Carlton rich MD [facility] CPT-37285 Level 3 Est. Patient 10:45:55 INFORMATION TECHNOLOGY SECURITY MANAGER Hugo Restrepo MD [facility] CPT-63936 Level 3 Est. Patient 14:12:49 CDT Griffin HERNANDEZ [facility] CPT-16030 Level 3 Est. Patient 17:37:24 CDT Carlton rich MD [facility] CPT-97222 Level 3 Est. Patient 16:51:54 CDT Carlton rich MD [facility] CPT-57895 Level 3 Est. Patient 12:18:11 CDT Hugo Restrepo MD [facility] CPT-85231 Level 3 Est. Patient 11:30:25 CDT Marcy crisostomo MD PhD [facility] CPT-65996 Level 3 Est. Patient 12:00:47 INFORMATION TECHNOLOGY SECURITY MANAGER Carlton rich MD [facility] CPT-13175 Level 3 Est. Patient 16:31:06 INFORMATION TECHNOLOGY SECURITY MANAGER Carlton rich MD [facility] CPT-61936 Level 3 Est. Patient 16:23:24 INFORMATION TECHNOLOGY SECURITY MANAGER Ridge tam DO [facility] CPT-63625 Level 3 Est. Patient 12:34:12 CDT Carlton rich MD [facility] CPT-95440 Level 2 Est. Patient 15:43:33 CDT Robi armstrong MD [facility] CPT-68610 Level 4 Est. Patient 14:04:44 CDT Carlton rich MD [facility] CPT-64221 Level 3 Est. Patient 05:47:59 CDT Ridge Zamorano Celeste tam [facility] CPT-86477 Level 3 Est. Patient 13:12:53 INFORMATION TECHNOLOGY SECURITY MANAGER Carlton rich MD [facility] CPT-54520 Level 3 Est. Patient 14:26:53 CDT Hugo Restrepo MD [facility] Procedures Code Procedure Name Date Entry Date Standard Desc ription CPT-35467 Hip bilat min 2V w AP pelvis 13:16:20 CDT 2 CPT-34951 Pelvis only 13:07:33 CDT CPT-00690 Spec Collection and Handling Fee 11:25:12 C DT CPT-76116 Fluzone Quadrivalent Intramuscular Suspe nsion 0.5 ML 14:31:55 CDT CPT-94003 Abx/Therapy Injection 13:28:47 INFORMATION TECHNOLOGY SECURITY MANAGER CPT-J2930 Solu Medrol 125 mg (Methyl Prednisolone Sodium Succinate) 12:00:47 INFORMATION TECHNOLOGY SECURITY MANAGER CPT-65208 Venipuncture Draw Fee 11:33:31 CDT CPT-53286 EKG Trac and Interp 11:21:09 CDT CPT-57830 Chest 2V Frontal and Lat 11:21:09 CDT 12/15 CPT-90905 Venipuncture Draw Fee 08:02:34 CDT CPT-06483 Chest 2V Frontal and Lat 05:47:59 CDT 06/05
--- OUTSIDE RECORDS SUMMARY | 2019-10-08 08:39 | XMS REPORT | Clinical Summary ---
Author Author Caitlin, Juliana Martinez Organization [facility] Address Unknown Phone Unavailable Allergies, Adverse Reactions, [...] po qd x 5 days P REDNISONE [id number] No Longer Active Perez Mora MD Active PROAIR HFA 108 (90 BASE) MCG/ACT INHALATION AEROSOL SO LUTION 2 puffs four times a day as needed ALBUTEROL SULFATE [id number] No Long er Active Becky FUENTES Active ASPIRIN 81 MG ORAL TABLET 1 po qd ASPIRIN 72069346528 Active Carlton Hu MD Active PREDNISONE 20 MG ORAL TABLET 1 tab twice daily for 3 d ay, then one daily for three days PREDNISONE 22069519986 No Longer Active Carlton Hu MD Active AUGMENTIN 875-125 MG ORAL TABLET 1 po BID x 10 days 20 16/03/22 AMOXICILLIN-POT CLAVULANATE 23856846708 No Longer Active Elise Garcia APRN Active TERBINAFINE HCL 250 MG ORAL TABLET 1 qDay for nail fungus 7 TERBINAFINE HCL 35842835153 No Longer Active Carlton Hu MD A ctive TUSSIONEX PENNKINETIC ER 10-8 MG/5ML ORAL SUSPENSION E XTENDED RELEASE 5ml po q12hr PRN Cough HYDROCOD POLST-CHLORPHEN POLST 89817629474 Active Carlton Hu MD Active AMOXICILLIN 500 MG ORAL CAPSULE 1 cap by mouth three times a day AMOXICILLIN 99529863294 No Longer Active Carlton Hu MD Active ELMIRON 100 MG ORAL CAPSULE 2 tablets in the am and 1 tablet at hs PENTOSAN POLYSULFATE SODIUM 10839070886 No Longer Active Robert jade Hu MD Active MUCINEX D 60-600 MG ORAL TABLET EXTENDED RELEASE 12 HOUR 1 t ab po q am PSEUDOEPHEDRINE-GUAIFENESIN 83035073426 No Longer Act nael Carlton Hu MD Active MUCINEX DM MAXIMUM STRENGTH 60-1200 MG ORAL TABLET EXT ENDED RELEASE 12 HOUR 1 tab po q am DEXTROMETHORPHAN-GUAIFENESIN 55024125241 No Longer Active Carlton Hu MD Active TUSSIONEX PENNKINETIC ER 10-8 MG/5ML ORAL SUSPENSION E XTENDED RELEASE 5ml po q12hr PRN Cough HYDROCOD POLST-CHLORPHEN POLST 5 6710792447 No Longer Active Carlton Hu MD Active POTASSIUM CHLORIDE ER 20 MEQ ORAL TABLET EXTENDED RELE ASE Take 1 by mouth 4 times daily for 7 days POTASSIUM CHLORIDE 05661530609 No Longer Active Carlton Hu MD Active ZITHROMAX 250 MG ORAL TABLET 2 po today, then 1 po q days 2-5 20 14/09/04 AZITHROMYCIN 15886074536 No Longer Active Elise Garcia APRN Active TUSSIONEX PENNKINETIC ER 10-8 MG/5ML ORAL SUSPENSION E XTENDED RELEASE 5 ml twice a day as needed for cough HYDROCOD POLST-CHLORPH EN POLST 91303758582 No Longer Active Elise Garcia APRN Active MONTELUKAST SODIUM 10 MG ORAL TABLET 1 po daily for Allergy MONTELUKAST SODIUM 12565452979 Active Carlton Hu MD Ac tive TUSSIONEX PENNKINETIC ER 10-8 MG/5ML ORAL SUSPENSION E XTENDED RELEASE 5ml po q12hr PRN Cough HYDROCOD POLST-CHLORPHEN POLST 5 8113792640 No Longer Active Hugo Restrepo MD Active GABAPENTIN 100 MG ORAL CAPSULE 1 po BID for fibromyalgia GABAPENTIN 06442424718 Active Carlton Hu MD Active LYRICA 100 MG ORAL CAPSULE Take 1 tab po BID for fibromyalgia 20 11/08/21 PREGABALIN 87042096898 No Longer Active Elise Garcia APRN A ctive PREDNISONE 20 MG ORAL TABLET 2 tabs daily for 3 days, 1 tab daily for 3 days, 1/2 tab daily for 2 days PREDNISONE 53011404191 No Longer Active Diya De Guzman APRN Active TUSSIONEX PENNKINETIC ER 10-8 MG/5ML ORAL SUSPENSION E XTENDED RELEASE 5 mL PO q 12 hrs PRN cough HYDROCOD POLST-CHLORPHEN POLST 741136 03919 No Longer Active Jillina Gege KHAN Active FLUTICASONE PROPIONATE 50 MCG/ACT NASAL SUSPENSION 2 s prays each nostril daily until bottle is empty FLUTICASONE PROPIONATE 601899583 99 No Longer Active Diya De Guzman APRN Active ASMANEX 60 METERED DOSES 220 MCG/INH INHALATION AEROSO L POWDER BREATH ACTIVATED 1 puff bid with rinse after MOMETASONE FUROATE 4041929 4102 No Longer Active Diya De Guzman APRN Active ZITHROMAX Z-REYNA 250 MG ORAL TABLET 2 today, then 1 daily for 4 d ays AZITHROMYCIN 52392404414 No Longer Active Elise Garcia APRN Active TUSSIONEX PENNKINETIC ER 10-8 MG/5ML ORAL SUSPENSION E XTENDED RELEASE 5ml po q12hr PRN Cough HYDROCOD POLST-CHLORPHEN POLST 5 3509509651 No Longer Active Elise Garcia APRN Active PREDNISONE 20 MG ORAL TABLET 2 tabs daily for 3 days, 1 tab daily for 3 days, 1/2 tab daily for 2 days PREDNISONE 03877854383 No Longer Active Diya De Guzman APRN Active AMOXICILLIN 500 MG ORAL CAPSULE 2 po BID x 10 days 201 09/29/08 AMOXICILLIN 20151504437 No Longer Active Diya De Guzman APRN Act nael SINGULAIR 10 MG ORAL TABLET 1 po qday for allergies 20 14/01/12 MONTELUKAST SODIUM 37999352647 No Longer Active Carlton Hu MD Active LEVAQUIN 500 MG ORAL TABLET 1 tablet by mouth daily 20 13/09/24 LEVOFLOXACIN 33148513701 No Longer Active Carlton Hu MD Acti ve FLUTICASONE PROPIONATE 50 MCG/ACT NASAL SUSPENSION 2 s prays each nostril daily for 2 weeks, then 1 spray each nostril daily. FLUTICASONE PROPIONATE 75986237797 Active Elise Garcia APRN Active ZITHROMAX 250 MG ORAL TABLET 2 po today, then 1 po q days 2-5 20 13/08/10 AZITHROMYCIN 34360861126 No Longer Active Elise Garcia APRN Active XANAX 0.5 MG ORAL TABLET one tablet by mouth daily prn anxiety 2015 ALPRAZOLAM 03269700937 Active Carlton Hu MD Active CYMBALTA 30 MG ORAL CAPSULE DELAYED RELEASE PARTICLES 1 cap by mouth daily for depression DULOXETINE HCL 59664573750 Active Carlton beltrán MD Active CEFDINIR 300 MG ORAL CAPSULE 1 po BID x 10 days CEFDINIR 68090146067 No Longer Active Carlton Hu MD Active ZOCOR 40 MG ORAL TABLET 1 tab by mouth daily SI MVASTATIN 81528230735 No Longer Active Carlton Hu MD Active CYCLOBENZAPRINE HCL 10 MG ORAL TABLET 1 tablet by mouth BID prn had pain CYCLOBENZAPRINE HCL 84128584457 No Longer Active Jayden Hu MD Active LEVOFLOXACIN 500 MG ORAL TABLET 1 tab PO daily x 10 days LEVOFLOXACIN 35680027533 No Longer Active Carlton Hu MD Acti ve PREDNISONE 20 MG ORAL TABLET 3 tab PO qd x 2d, 2 tab P O qd x 2d, 1 tab PO qd x 2d, 1/2 tab PO qd x 2d PREDNISONE 60659612827 No Lo nger Active Carlton Hu MD Active FLUTICASONE PROPIONATE 50 MCG/ACT NASAL SUSPENSION 1 t o 2 sprays each nostril daily FLUTICASONE PROPIONATE 67987572683 No Longer Ac tive Blaine HERNANDEZ Active CHERATUSSIN AC 100-10 MG/5ML ORAL SYRUP 1 tsp by mouth every 4 hours as needed for cough GUAIFENESIN-CODEINE 01260257002 No Longe r Active Blaine HERNANDEZ Active PROMETHAZINE-CODEINE 6.25-10 MG/5ML ORAL SYRUP 1 tsp b y mouth every 6 hours if needed for cough PROMETHAZINE-CODEINE 85562791891 No Longer Active Blaine HERNANDEZ Active CHERATUSSIN AC 100-10 MG/5ML ORAL SYRUP 1 tsp by mouth every 4 hours as needed for cough GUAIFENESIN-CODEINE 06378671518 No Longe r Active Blaine HERNANDEZ Active ZITHROMAX Z-REYNA 250 MG ORAL TABLET 2 today, then 1 daily for 4 d ays AZITHROMYCIN 61808084049 No Longer Active Columba Raida Act nael ZITHROMAX 250 MG ORAL TABLET 2 po today, then 1 po q days 2-5 20 14/03/21 AZITHROMYCIN 42322327957 No Longer Active Carlton Hu MD Active ZITHROMAX Z-REYNA 250 MG ORAL TABLET 2 today, then 1 daily for 4 d ays AZITHROMYCIN 34844483256 No Longer Active Columba Raida Act nael AUGMENTIN 875-125 MG ORAL TABLET 1 po BID x 10 days 13/01/20 AMOXICILLIN-POT CLAVULANATE 96082609390 No Longer Active Diya De Guzman APRN Active ZITHROMAX 250 MG ORAL TABLET 2 po today, then 1 po q days 2-5 20 12/08/14 AZITHROMYCIN 36952444333 No Longer Active Carlton Hu MD Active TRAMADOL HCL 50 MG ORAL TABLET 1 po tid with ES Tylenol TRAMADOL HCL 60254528522 Active Carlton Hu MD Active PREMARIN 0.625 MG ORAL TABLET TAKE 1 TAB BY MOUTH DAILY ESTROGENS CONJUGATED 24253184594 No Longer Active Ridge Bess DO A ctive CYMBALTA 30 MG ORAL CAPSULE DELAYED RELEASE PARTICLES 1 cap by mouth daily DULOXETINE HCL 03797228971 No Longer Active Ridge tam DO Active AMOXICILLIN 500 MG ORAL CAPSULE 1 tab by mouth 3 times daily x 10 days AMOXICILLIN 61381945750 No Longer Active Carlton bustamante MD Active AMOXICILLIN 500 MG ORAL CAPSULE 1 tab by mouth 3 times daily x 10 days AMOXICILLIN 11471329112 No Longer Active Carlton bustamante MD Active PROMETHAZINE-CODEINE 6.25-10 MG/5ML ORAL SYRUP 1 tsp b y mouth every 8 hours prn cough PROMETHAZINE-CODEINE 74032592270 No Longer Acti ve Carlton Hu MD Active MEDROL 4 MG ORAL TABLET THERAPY PACK 6 pills x 1 day, then 5 pills x 1 day then 4 pills x 1 day, then 3 pills x 1 day, then 2 pills x 1 day, then 1 pill x 1 day, then stop METHYLPREDNISOLONE 29324557714 No Long er Active Perez Mora MD Active AZITHROMYCIN 250 MG ORAL TABLET 2 po qd x 1 day, then 1 po q d x 4 days AZITHROMYCIN 89290932865 No Longer Active Perez Ambriz MD Active SYMBICORT 160-4.5 MCG/ACT INHALATION AEROSOL 2 puffs bid wit h rinse after BUDESONIDE-FORMOTEROL FUMARATE 53257817773 N o Longer Active Perez Mora MD Active LYRICA 75 MG ORAL CAPSULE TAKE 1 CAPSULE BY MOUTH TWICE DAILY PREGABALIN 09625296836 No Longer Active Carlton Hu MD Acti ve TOPAMAX 25 MG ORAL TABLET 1 qHS x 1 week, then 1 BID x 1 week, then 1 qAM and 2 qHS x 1 week, then 2 BID (migraine prevention) T OPIRAMATE 51360647696 No Longer Active Jerica FUENTES Active TOPAMAX 50 MG ORAL TABLET take 1 tab po BID for migraines. 07/02 TOPIRAMATE 46781107034 No Longer Active Jerica FUENTES Active TOPAMAX 100 MG ORAL TABLET Take 1 tablet po bid TO PIRAMATE 13414651109 Active Carlton Hu MD Active TRIAMCINOLONE ACETONIDE 0.1 % EXTERNAL CREAM apply three roger es daily prn rash TRIAMCINOLONE ACETONIDE 28560963303 No Longer Active Carlton Hu MD Active PAXIL 40 MG ORAL TABLET take 1 tab po qday for depression 0 PAROXETINE HCL 50527314475 Active Carlton Hu MD Active CHERATUSSIN AC 100-10 MG/5ML ORAL SYRUP 5ml po q6hr PRN Cough 20 13/04/14 GUAIFENESIN-CODEINE 23018705045 No Longer Active Carlton Hu MD Active MEDROL 4 MG ORAL TABLET THERAPY PACK 6 tabs on day 1, 5 tabs on day 2, 4 tabs on day 3, 3 tabs on day 4, 2 tabs on day 5, 1 tab on day 6 2013 METHYLPREDNISOLONE 45835951455 No Longer Active Perez Mora MD Active AZITHROMYCIN 250 MG ORAL TABLET 2 po qd x 1 day, then 1 po q d x 4 days AZITHROMYCIN 86223347179 No Longer Active Perez Ambriz MD Active PROPRANOLOL HCL 60 MG ORAL TABLET 1 PO Q D PROPRANOLOL HCL 44285624161 No Longer Active Perez Mora MD Activ e CHERATUSSIN AC 100-10 MG/5ML ORAL SYRUP take one tsp po Q 6h ours prn cough GUAIFENESIN-CODEINE 96224328629 No Longer Active Zia Mora MD Active AUGMENTIN 875-125 MG ORAL TABLET 1 tab by mouth twice daily with food AMOXICILLIN-POT CLAVULANATE 92571139693 No Longer Act nael Perez Mora MD Active CHERATUSSIN AC 100-10 MG/5ML ORAL SYRUP 1 tsp by mouth every 4 hours as needed for cough GUAIFENESIN-CODEINE 74800772189 No Longe r Active Hugo Restrepo MD Active ACETAMINOPHEN-CODEINE #3 300-30 MG ORAL TABLET 1 PO Q 4-6 HRS IA N PAIN ACETAMINOPHEN-CODEINE 78892879087 No Longer Active Hugo Restrepo MD Active LEVAQUIN 500 MG ORAL TABLET take one po QD LEVO FLOXACIN 87869685542 No Longer Active Griffin HERNANDEZ Active PREDNISONE 20 MG ORAL TABLET Take 3 tabs daily for 3 d ays, 2 tabs daily for 3 days, 1 tab daily for 3 days, 1/2 tab daily for 3 days 11/07 PREDNISONE 96013105940 No Longer Active Carlton Hu MD Acti ve AVELOX 400 MG ORAL TABLET 1 tab by mouth daily MOXIFLOXACIN HCL 35964351021 No Longer Active Carlton Hu MD Active CHERATUSSIN AC 100-10 MG/5ML ORAL SYRUP 1 tsp by mouth every 4 hours as needed for cough GUAIFENESIN-CODEINE 45857428494 No Longe r Active Hugo Restrepo MD Active AVELOX 400 MG ORAL TABLET 1 tab by mouth daily MOXIFLOXACIN HCL 21527594314 No Longer Active Marcy De La Rosa MD PhD Active TERBINAFINE HCL 250 MG ORAL TABLET 1 qDay T ERBINAFINE HCL 96826462193 No Longer Active Marcy De La Rosa MD PhD Active CHERATUSSIN AC 100-10 MG/5ML ORAL SYRUP 1 tsp by mouth every 4 hours as needed for cough GUAIFENESIN-CODEINE 27762849407 No Longe r Active Marcy De La Rosa MD PhD Active AVELOX 400 MG ORAL TABLET 1 tab by mouth daily MOXIFLOXACIN HCL 52220036415 No Longer Active Marcy De La Rosa MD PhD Active HYDROCODONE-ACETAMINOPHEN 5-325 MG ORAL TABLET 1 po q 6hr PRN co ugh HYDROCODONE-ACETAMINOPHEN 28687959803 No Longer Active Marcy De La Rosa MD PhD Active PREDNISONE 20 MG ORAL TABLET 2 tabs daily for 3 days, 1 tab daily for 3 days, 1/2 tab daily for 2 days PREDNISONE 91853950864 No Longer Active Carlton Hu MD Active CEFDINIR 300 MG ORAL CAPSULE by mouth twice a day 2011 CEFDINIR 82342562792 No Longer Active Carlton Hu MD Acti ve HYDROCHLOROTHIAZIDE 25 MG ORAL TABLET 1 TAB PO DAILY HYDROCHLOROTHIAZIDE 41362773202 Active Carlton Hu MD A ctive ACETAMINOPHEN-CODEINE #3 300-30 MG ORAL TABLET 1 tablet po q 4-6 hrs prn pain ACETAMINOPHEN-CODEINE 06324816936 No Longer Active Ridge Bess DO Active ZITHROMAX 250 MG ORAL TABLET 2 po today, then 1 po q days 2-5 20 03/07/07 AZITHROMYCIN 58402292330 No Longer Active Carlton Hu MD Active CHERATUSSIN AC 100-10 MG/5ML ORAL SYRUP take 1 tsp po q4-6 h ours prn cough GUAIFENESIN-CODEINE 82835538510 No Longer Active Jayden Hu MD Active ACETAMINOPHEN-CODEINE #3 300-30 MG ORAL TABLET 1 PO Q 4-6 HR PRN PAIN ACETAMINOPHEN-CODEINE 84219652799 No Longer Active Arnol Hu MD Active LORTAB 7.5-500 MG/15ML ORAL ELIXIR 7.5 ml po q 4 hour prn cough HYDROCODONE-ACETAMINOPHEN 94129259745 No Longer Active Carlton Hu MD Active PREDNISONE 20 MG ORAL TABLET 1 po bid 3 days, then 1 po q day 3 days PREDNISONE 20440629616 No Longer Active Carlton Hu MD Active CEFDINIR 300 MG ORAL CAPSULE by mouth twice a day 2011 CEFDINIR 35307507157 No Longer Active Carlton Hu MD Acti ve CEFDINIR 300 MG ORAL CAPSULE by mouth twice a day 2010 CEFDINIR 51371085734 No Longer Active Carlton Hu MD Acti ve CEFDINIR 300 MG ORAL CAPSULE by mouth twice a day 2010 CEFDINIR 37651608531 No Longer Active Carlton Hu MD Acti ve TESSALON PERLES 100 MG ORAL CAPSULE 1 tablet by mouth 3 times daily as needed for cough BENZONATATE 07755158532 No Longer Active Carlton Hu MD Active CEFDINIR 300 MG ORAL CAPSULE by mouth twice a day 2010 CEFDINIR 13693569330 No Longer Active Carlton Hu MD Acti ve ZITHROMAX Z-REYNA 250 MG ORAL TABLET 2 today, then 1 daily for 4 d ays AZITHROMYCIN 63534143046 No Longer Active Hugo Restrepo MD Active TESSALON PERLES 100 MG ORAL CAPSULE 1 tablet by mouth 3 times daily as needed for cough TESSALON PERLES 100 MG ORAL CAPSULE 06379 7 BENZONATATE Inactive PREDNISONE 20 MG ORAL TABLET 1 po bid 3 days, then 1 po q day 3 days PREDNISONE 20 MG ORAL TABLET 742534 PREDNISONE Greer ctive LORTAB 7.5-500 MG/15ML ORAL [...] cough CHERATUSSIN AC 100-10 MG/5ML ORAL SYRUP 760309 GUAIFENESIN-CODEINE Inactive ACETAMINOPHEN-CODEINE #3 300-30 MG ORAL TABLET 1 tablet po q 4-6 hrs prn pain ACETAMINOPHEN-CODEINE #3 300-30 MG ORAL TABLET ACETAMINOPHEN-CODEINE Inactive HYDROCODONE-ACETAMINOPHEN 5-325 MG ORAL TABLET 1 po q 6hr PRN co ugh HYDROCODONE-ACETAMINOPHEN 5-325 MG ORAL TABLET 017173 HYDROCODONE-ACETAMINOPHEN Inactive AVELOX 400 MG ORAL TABLET 1 tab by mouth daily AVELOX 400 MG ORAL TABLET 195708 MOXIFLOXACIN HCL Inactive CHERATUSSIN AC 100-10 MG/5ML ORAL SYRUP 1 tsp by mouth every 4 hours as needed for cough CHERATUSSIN AC 100-10 MG/5ML ORAL SYRUP 9 82241 GUAIFENESIN-CODEINE Inactive TERBINAFINE HCL 250 MG ORAL TABLET 1 qDay 07/08 TERBINAFINE HCL 250 MG ORAL TABLET 774498 TERBINAFINE HCL Inactive CHERATUSSIN AC 100-10 MG/5ML ORAL SYRUP 1 tsp by mouth every 4 hours as needed for cough CHERATUSSIN AC 100-10 MG/5ML ORAL SYRUP 9 50503 GUAIFENESIN-CODEINE Inactive ACETAMINOPHEN-CODEINE #3 300-30 MG ORAL TABLET 1 PO Q 4-6 HRS IA N PAIN ACETAMINOPHEN-CODEINE #3 300-30 MG ORAL TABLET ACETAMINOPHEN-CODEINE Inactive CHERATUSSIN AC 100-10 MG/5ML ORAL SYRUP 1 tsp by mouth every 4 hours as needed for cough CHERATUSSIN AC 100-10 MG/5ML ORAL SYRUP 9 06514 GUAIFENESIN-CODEINE Inactive AUGMENTIN 875-125 MG ORAL TABLET 1 tab by mouth twice daily with food AUGMENTIN 875-125 MG ORAL TABLET 936276 AMOXICIL MADELINE-POT CLAVULANATE Inactive CHERATUSSIN AC 100-10 MG/5ML ORAL SYRUP take one tsp po Q 6h ours prn cough CHERATUSSIN AC 100-10 MG/5ML ORAL SYRUP 714391 GUAIFENESIN-CODEINE Inactive PROPRANOLOL HCL 60 MG ORAL TABLET 1 PO Q D PROPRANOLOL HCL 60 MG ORAL TABLET 213055 PROPRANOLOL HCL Inactive TOPAMAX 50 MG ORAL TABLET take 1 tab po BID for migraines. 07/02 TOPAMAX 50 MG ORAL TABLET 420368 TOPIRAMATE Inacti ve TOPAMAX 25 MG ORAL TABLET 1 qHS x 1 week, then 1 BID x 1 week, then 1 qAM and 2 qHS x 1 week, then 2 BID (migraine prevention) TOPAMAX 25 MG ORAL TABLET 627641 TOPIRAMATE Inactive LYRICA 75 MG ORAL CAPSULE TAKE 1 CAPSULE BY MOUTH TWICE DAILY LYRICA 75 MG ORAL CAPSULE PREGABALIN Inactive SYMBICORT 160-4.5 MCG/ACT INHALATION AEROSOL 2 puffs bid wit h rinse after SYMBICORT 160-4.5 MCG/ACT INHALATION AEROSOL BUDESONIDE- FORMOTEROL FUMARATE Inactive PROMETHAZINE-CODEINE 6.25-10 MG/5ML ORAL SYRUP 1 tsp b y mouth every 8 hours prn cough PROMETHAZINE-CODEINE 6.25-10 MG/ 5ML ORAL SYRUP 082000 PROMETHAZINE-CODEINE Inactive CYMBALTA 30 MG ORAL CAPSULE DELAYED RELEASE PARTICLES 1 cap by mouth daily CYMBALTA 30 MG ORAL CAPSULE DELAYED RELE ASE PARTICLES 046721 DULOXETINE HCL Inactive PREMARIN 0.625 MG ORAL TABLET TAKE 1 TAB BY MOUTH DAILY PREMARIN 0.625 MG ORAL TABLET ESTROGENS CONJUGATED Inactive CHERATUSSIN AC 100-10 MG/5ML ORAL SYRUP 1 tsp by mouth every 4 hours as needed for cough CHERATUSSIN AC 100-10 MG/5ML ORAL SYRUP 9 06812 GUAIFENESIN-CODEINE Inactive PROMETHAZINE-CODEINE 6.25-10 MG/5ML ORAL SYRUP 1 tsp b y mouth every 6 hours if needed for cough PROMETHAZINE-CODEINE 6.25-10 MG/5ML ORAL SYRUP 296613 PROMETHAZINE-CODEINE Inactive CHERATUSSIN AC 100-10 MG/5ML ORAL SYRUP 1 tsp by mouth every 4 hours as needed for cough CHERATUSSIN AC 100-10 MG/5ML ORAL SYRUP 9 73493 GUAIFENESIN-CODEINE Inactive FLUTICASONE PROPIONATE 50 MCG/ACT NASAL SUSPENSION 1 t o 2 sprays each nostril daily FLUTICASONE PROPIONATE 50 MCG/AC T NASAL SUSPENSION 2784763 FLUTICASONE PROPIONATE Inactive PREDNISONE 20 MG ORAL TABLET 3 tab PO qd x 2d, 2 tab P O qd x 2d, 1 tab PO qd x 2d, 1/2 tab PO qd x 2d PREDNISONE 20 MG ORAL TAB LET 297818 PREDNISONE Inactive LEVOFLOXACIN 500 MG ORAL TABLET 1 tab PO daily x 10 days LEVOFLOXACIN 500 MG ORAL TABLET 255341 LEVOFLOXACIN Inactive CYCLOBENZAPRINE HCL 10 MG ORAL TABLET 1 tablet by mouth BID prn had pain CYCLOBENZAPRINE HCL 10 MG ORAL TABLET 328160 CYCLOBENZAPRINE HCL Inactive ZOCOR 40 MG ORAL TABLET 1 tab by mouth daily 4 ZOCOR 40 MG ORAL TABLET 060279 SIMVASTATIN Inactive TUSSIONEX PENNKINETIC ER 10-8 MG/5ML [...] FLUTICASONE PROPIO EFE 50 MCG/ACT NASAL SUSPENSION 4931193 FLUTICASONE PROPIONATE Inactive TUSSIONEX PENNKINETIC ER 10-8 [...] three days PREDNISONE 20 MG ORAL TABLET 325585 PREDNIS ONE Inactive PROAIR HFA 108 (90 BASE) MCG/ACT INHALATION AEROSOL SO LUTION 2 puffs four times a day as needed PROAIR HFA 108 (90 B ASE) MCG/ACT INHALATION AEROSOL SOLUTION ALBUTEROL SULFATE Inactive ZITHROMAX Z-REYNA 250 MG ORAL TABLET 2 today, then 1 daily for 4 d ays ZITHROMAX Z-REYNA 250 MG ORAL TABLET 623414 AZITHROMYCIN Inactive CEFDINIR 300 MG ORAL CAPSULE by mouth twice a day 2010 CEFDINIR 300 MG ORAL CAPSULE 814635 CEFDINIR Inactive CEFDINIR 300 MG ORAL CAPSULE [...] 2-5 03/07/07 ZITHROMAX 250 MG ORAL TABLET 893109 AZITHROMYCIN Baldwin ctive CEFDINIR 300 MG ORAL CAPSULE by mouth twice a day 2011 CEFDINIR 300 MG ORAL CAPSULE 20020704 CEFDINIR Inactive PREDNISONE 20 MG ORAL TABLET 2 tabs daily for 3 days, 1 tab daily for 3 days, 1/2 tab daily for 2 days PREDNISONE 20 MG ORAL T ABLET 180531 PREDNISONE Inactive AVELOX 400 MG ORAL TABLET 1 tab by mouth daily AVELOX 400 MG ORAL TABLET 293308 MOXIFLOXACIN HCL Inactive AVELOX 400 MG ORAL TABLET 1 tab by mouth daily AVELOX 400 MG ORAL TABLET 228712 MOXIFLOXACIN HCL Inactive PREDNISONE 20 MG ORAL TABLET Take 3 tabs daily for 3 d ays, 2 tabs daily for 3 days, 1 tab daily for 3 days, 1/2 tab daily for 3 days 11/07 PREDNISONE 20 MG ORAL TABLET 094134 PREDNISONE Inactive LEVAQUIN 500 MG ORAL TABLET take one po QD LEVAQUIN 500 MG ORAL TABLET 742974 LEVOFLOXACIN Inactive AZITHROMYCIN 250 MG ORAL TABLET 2 po qd x 1 day, then 1 po q d x 4 days AZITHROMYCIN 250 MG ORAL TABLET 676171 AZITHROMY GIOVANNI Inactive MEDROL 4 MG ORAL TABLET THERAPY PACK 6 tabs on day 1, 5 tabs on day 2, 4 tabs on day 3, 3 tabs on day 4, 2 tabs on day 5, 1 tab on day 6 2013 MEDROL 4 MG ORAL TABLET THERAPY PACK 785258 METHYLPREDNISOLONE Baldwin ctive CHERATUSSIN AC 100-10 MG/5ML ORAL SYRUP 5ml po q6hr PRN Cough 20 13/04/14 CHERATUSSIN AC 100-10 MG/5ML ORAL SYRUP 844629 GUAIFENE SIN-CODEINE Inactive TRIAMCINOLONE ACETONIDE 0.1 % EXTERNAL CREAM apply three roger es daily prn rash TRIAMCINOLONE ACETONIDE 0.1 % EXTERNAL CREAM 101 4314 TRIAMCINOLONE ACETONIDE Inactive AZITHROMYCIN 250 MG ORAL TABLET 2 po qd x 1 day, then 1 po q d x 4 days AZITHROMYCIN 250 MG ORAL TABLET 600093 AZITHROMY GIOVANNI Inactive MEDROL 4 MG ORAL TABLET THERAPY PACK 6 pills x 1 day, then 5 pills x 1 day then 4 pills x 1 day, then 3 pills x 1 day, then 2 pills x 1 day, then 1 pill x 1 day, then stop MEDROL 4 MG ORAL TABLET THERAPY PACK 403316 METHYLPREDNISOLONE Inactive AMOXICILLIN 500 MG ORAL CAPSULE 1 tab by mouth 3 times daily x 10 days AMOXICILLIN 500 MG ORAL CAPSULE 910393 AMOXICILL IN Inactive AMOXICILLIN 500 MG ORAL CAPSULE 1 tab by mouth 3 times daily x 10 days AMOXICILLIN 500 MG ORAL CAPSULE 811113 AMOXICILL IN Inactive ZITHROMAX 250 MG ORAL TABLET 2 po today, then 1 po q days 2-5 20 12/08/14 ZITHROMAX 250 MG ORAL TABLET 940569 AZITHROMYCIN Baldwin ctive AUGMENTIN 875-125 MG ORAL TABLET 1 po BID x 10 days 20 13/01/20 AUGMENTIN 875-125 MG ORAL TABLET 508255 AMOXICILLIN-POT CLAVULANATE Inactive ZITHROMAX Z-REYNA 250 MG ORAL TABLET 2 today, then 1 daily for 4 d ays ZITHROMAX Z-REYNA 250 MG ORAL TABLET 249138 AZITHROMYCIN Inactive ZITHROMAX 250 MG ORAL TABLET 2 po today, then 1 po q days 2-5 20 14/03/21 ZITHROMAX 250 MG ORAL TABLET 752165 AZITHROMYCIN Greer ctive ZITHROMAX Z-REYNA 250 MG ORAL TABLET 2 today, then 1 daily for 4 d ays ZITHROMAX Z-REYNA 250 MG ORAL TABLET 966284 AZITHROMYCIN Inactive CEFDINIR 300 MG ORAL CAPSULE 1 po BID x 10 days 06/21 CEFDINIR 300 MG ORAL CAPSULE 20020704 CEFDINIR Inactive ZITHROMAX 250 MG ORAL TABLET 2 po today, then 1 po q days 2-5 20 13/08/10 ZITHROMAX 250 MG ORAL TABLET 886710 AZITHROMYCIN Greer ctive LEVAQUIN 500 MG ORAL TABLET 1 tablet by mouth daily 13/09/24 LEVAQUIN 500 MG ORAL TABLET 19971102 LEVOFLOXACIN Inactive SINGULAIR 10 MG ORAL TABLET 1 po qday for allergies 20 14/01/12 SINGULAIR 10 MG ORAL TABLET 20010504 MONTELUKAST SODIUM Inactive AMOXICILLIN 500 MG ORAL CAPSULE 2 po BID x 10 days 201 09/29/08 AMOXICILLIN 500 MG ORAL CAPSULE 912217 AMOXICILLIN Inactive PREDNISONE 20 MG ORAL TABLET 2 tabs daily for 3 days, 1 tab daily for 3 days, 1/2 tab daily for 2 days PREDNISONE 20 MG ORAL T ABLET 325916 PREDNISONE Inactive ZITHROMAX Z-REYNA 250 MG ORAL TABLET 2 today, then 1 daily for 4 d ays ZITHROMAX Z-REYNA 250 MG ORAL TABLET 823984 AZITHROMYCIN Inactive PREDNISONE 20 MG ORAL TABLET 2 tabs daily for 3 days, 1 tab daily for 3 days, 1/2 tab daily for 2 days PREDNISONE 20 MG ORAL T ABLET 034324 PREDNISONE Inactive ZITHROMAX 250 MG ORAL TABLET 2 po today, then 1 po q days 2-5 20 14/09/04 ZITHROMAX 250 MG ORAL TABLET 895398 AZITHROMYCIN [facility] AMOXICILLIN 500 MG ORAL CAPSULE 1 cap by mouth three times a day AMOXICILLIN 500 MG ORAL CAPSULE 878453 AMOXICILLIN Inactive TERBINAFINE HCL 250 MG ORAL TABLET 1 qDay for nail fungus 7 TERBINAFINE HCL 250 MG ORAL TABLET 048973 TERBINAFINE HCL Inact nael AUGMENTIN 875-125 MG ORAL TABLET 1 po BID x 10 days 16/03/22 AUGMENTIN 875-125 MG ORAL TABLET 582774 AMOXICILLIN-POT CLAVULANATE Inactive PREDNISONE 20 MG ORAL TABLET 2 po qd x 5 days PREDNISONE 20 MG ORAL TABLET 787703 PREDNISONE Inactive Vital Signs Date Name Value [...] - Chem istry sodium, serum 132 mmol/L 189-495 9554/07/12 potassium, serum 2.7 mmol/L 3.5-5.2 chloride, serum 93 mmol/L 98-107 carbon dioxide, venous blood 30.8 mmol/L 21.0-32 .0 blood glucose 107 mg/dL 65-110 calcium, serum 9.3 mg/dL 8.5-10.1 urea nitrogen, blood 12 mg/dL 7-18 creatinine, serum 1.00 mg/dL 0.60-1.30 sodium, serum 142 mmol/L 492-953 6684/07/17 potassium, serum 4.2 mmol/L 3.5-5.2 chloride, serum 106 mmol/L 98-107 carbon dioxide, venous blood 29.9 mmol/L 21.0-32 .0 blood glucose 108 mg/dL 65-110 calcium, serum 9.1 mg/dL 8.5-10.1 urea nitrogen, blood 11 mg/dL 7-18 creatinine, serum 0.81 mg/dL 0.60-1.30 sodium, serum 139 mmol/L [phone]/03/19 potassium, serum 3.6 mmol/L 3.5-5.2 chloride, serum 100 mmol/L 98-107 carbon dioxide, venous blood 30.3 mmol/L 21.0-32 .0 blood glucose 101 mg/dL 65-110 calcium, serum 9.4 mg/dL 8.5-10.1 urea nitrogen, blood 10 mg/dL 7-18 creatinine, serum 0.96 mg/dL 0.60-1.30 Encounters Code Encounter Date Provider Facility CPT-24428 Level 3 Est. Patient 11:34:49 [employer] Perez [facility] CPT-18608 Level 4 Est. Patient 09:51:32 [employer] Carlton rich MD [facility] CPT-80022 Level 3 Est. Patient 10:26:00 [employer] Elise Are ll [facility] CPT-10870 Level 3 Est. Patient 13:35:41 [employer] Carlton rich MD [facility] CPT-48680 Level 3 Est. Patient 10:03:52 [employer] Carlton rich MD [facility] CPT-48151 Level 3 Est. Patient 12:17:50 CDT Hugo Restrepo MD [facility]-58076 Level 3 Est. Patient 13:42:38 CDT Elise Are [facility] CPT-56025 Level 3 Est. Patient 13:23:51 CDT Diya cobian [facility] CPT-67092 Level 3 Est. Patient 14:22:19 [employer] Diya cobian [facility] CPT-89379 Level 3 Est. Patient 10:11:46 CDT Carlton rich MD [facility] CPT-37268 Level 3 Est. Patient 17:29:43 CDT Elise Are [facility] CPT-08404 Level 3 Est. Patient 11:58:06 CDT Elise Are [facility] CPT-63550 Level 4 Est. Patient 14:36:51 CDT Carlton rich MD [facility] CPT-79627 Level 3 Est. Patient 18:16:00 [employer] Blaine HERNANDEZ [facility] CPT-26419 Level 3 Est. Patient 09:45:49 [employer] Carlton rich MD [facility] CPT-61748 Level 3 Est. Patient 13:19:20 CDT Carlton rich MD [facility] CPT-80673 Level 3 Est. Patient 13:06:43 CDT Ridge tam DO [facility] CPT-84881 Level 3 Est. Patient 10:03:07 CDT Perez Mora MD [facility] CPT-80013 Level 3 Est. Patient 19:50:35 [employer] Carlton rich MD [facility] CPT-88000 Level 4 Est. Patient 18:05:01 [employer] Carlton rich MD [facility] CPT-54873 Level 3 Est. Patient 10:45:55 [employer] Hugo [facility] [id number] Level 3 Est. Patient 14:12:49 CDT Griffin HERNANEDZ [facility] CPT-54294 Level 3 Est. Patient 17:37:24 CDT Carlton rich MD [facility] [id number] Level 3 Est. Patient 16:51:54 CDT Carlton rich MD [facility] [id number] Level 3 Est. Patient 12:18:11 CDT Hugo Restrepo [facility] [id number] Level 3 Est. Patient 11:30:25 CDT Marcy crisostomo MD PhD [facility] [id number] Level 3 Est. Patient 12:00:47 [employer] Carlton rich MD [facility] CPT-12811 Level 3 Est. Patient 16:31:06 [employer] Carlton rich MD [facility] [id number] Level 3 Est. Patient 16:23:24 [employer] Ridge tam DO [facility] CPT-35454 Level 3 Est. Patient 12:34:12 CDT Carlton rich MD [facility] [id number] Level 2 Est. Patient 15:43:33 CDT Robi armstrong MD [facility] CPT-29640 Level 4 Est. Patient 14:04:44 CDT Carlton rich MD [facility] CPT-88682 Level 3 Est. Patient 05:47:59 CDT Ridge tam DO [facility] CPT-12005 Level 3 Est. Patient 13:12:53 [employer] Carlton rich MD [facility] CPT-59832 Level 3 Est. Patient 14:26:53 CDT Hugo Restrepo MD [facility] Procedures Code Procedure Name Date Entry Date Standard Desc ription CPT-000 Give Appropriate Flu Vaccine 14:14:31 CDT 2 CPT-J1040 Depo Medrol 80 mg (Methyl Prednisolone A cetate) 10:42:44 CDT CPT-J1100 Decadron 8mg (Dexamethasone) 10:42:44 CDT 2 CPT-J0696 Rocephin 1gm Inj Solr 14:32:13 CDT CPT-J1020 Depo Medrol 60 mg (Methyl Prednisolone A cetate) 14:32:13 CDT CPT-J1100 Decadron 6mg (Dexamethasone) 14:32:13 CDT 2 CPT-06107 Hip bilat min 2V w AP pelvis 13:16:20 CDT 2 CPT-63197 Pelvis only 13:07:33 CDT CPT-14701 Spec Collection and Handling Fee 11:25:12 C DT CPT-49948 Fluzone Quadrivalent Intramuscular Suspe nsion 0.5 ML 14:31:55 CDT CPT-75844 Abx/Therapy Injection 13:28:47 [employer] CPT-J2930 Solu Medrol 125 mg (Methyl Prednisolone Sodium Succinate) 12:00:47 [employer] CPT-90831 Venipuncture Draw Fee 11:33:31 CDT CPT-39492 EKG Trac and Interp 11:21:09 CDT CPT-50262 Chest 2V Frontal and Lat 11:21:09 CDT 12/15 CPT-70589 Venipuncture Draw Fee 08:02:34 CDT CPT-08496 Chest 2V Frontal and Lat 05:47:59 CDT 06/05
--- OUTSIDE RECORDS SUMMARY | 2019-10-08 08:39 | XMS REPORT | Clinical Summary ---
Author Author Caitlin, Juliana Martinez Organization [employer] [facility] Address Unknown Phone Unavailable Allergies, Adverse [...] sites Sinusitis 473.9 Active Diya De Guzman [employer] Unspecified sinusitis (chronic) Bronchitis-Acute 466.0 Active Carlton Hu MD Acute bronchitis URI - acute 465.9 Active Elise Whitmore [employer] Acute upper respiratory infections of unspecified site [...] 1 tablet by mouth daily LEV OFLOXACIN [id number] No Longer Active Carlton Hu MD Active FLUTICASONE PROPIONATE 50 MCG/ACT SUSP 2 sprays each n ostril daily for 2 weeks, then 1 spray each nostril daily. FLUTICASONE PRO PIONATE 89421431177 Active Elise Whitmore APRN Active ZITHROMAX 250 MG TAB 2 po today, then 1 po q days 2-5 AZITHROMYCIN 41592129205 No Longer Active Elise Whitmore APRN Acti ve XANAX 0.5 MG TABS one tablet by mouth daily prn anxiety ALPRAZOLAM 09104413152 Active Carlton Hu MD Active CYMBALTA 30 MG CPEP 1 cap by mouth daily for depression DULOXETINE HCL 91802724598 Active Carlton Hu MD Active CEFDINIR 300 MG CAPS 1 po BID x 10 days CEFDINI R 97304943557 No Longer Active Carlton Hu MD Active ZOCOR 40 MG TAB 1 tab by mouth daily SIMVASTATI N 87482456065 No Longer Active Carlton Hu MD Active CYCLOBENZAPRINE HCL 10 MG TABS 1 tablet by mouth BID prn had cherelle n CYCLOBENZAPRINE HCL 59506425675 No Longer Active Carlton Hu MD Active LEVOFLOXACIN 500 MG ORAL TABS 1 tab PO daily x 10 days LEVOFLOXACIN 17007975275 No Longer Active Carlton Hu MD Acti ve PREDNISONE 20 MG ORAL TABS 3 tab PO qd x 2d, 2 tab PO qd x 2d, 1 tab PO qd x 2d, 1/2 tab PO qd x 2d PREDNISONE 66829509275 No Longer Active Carlton Hu MD Active TUSSIONEX PENNKINETIC ER 10-8 MG/5ML ORAL LQCR 5 mL PO q 12 hrs PRN cough HYDROCOD POLST-CHLORPHEN POLST 88341564119 Active Zo meeks Active FLUTICASONE PROPIONATE 50 MCG/ACT SUSP 1 to 2 sprays each no stril daily FLUTICASONE PROPIONATE 05894031786 No Longer Active T jaz HERNANDEZ Active CHERATUSSIN AC 100-10 MG/5ML SYRP 1 tsp by mouth every 4 hours as needed for cough GUAIFENESIN-CODEINE 91391804450 No Longer Activ e Blaine HERNANDEZ Active PROMETHAZINE-CODEINE 6.25-10 MG/5ML SYRP 1 tsp by mout h every 6 hours if needed for cough PROMETHAZINE-CODEINE 83931160824 No Long er Active Blaine HERNANDEZ Active CHERATUSSIN AC 100-10 MG/5ML SYRP 1 tsp by mouth every 4 hours as needed for cough GUAIFENESIN-CODEINE 44371193620 No Longer Activ e Blaine HERNANDEZ Active ZITHROMAX Z-REYNA 250 MG TABS 2 today, then 1 daily for 4 days 201 08/30/03 AZITHROMYCIN 47719302842 No Longer Active Columba Raida Act nael ZITHROMAX 250 MG TAB 2 po today, then 1 po q days 2-5 AZITHROMYCIN 48524632327 No Longer Active Carlton Hu MD Acti ve ZITHROMAX Z-REYNA 250 MG TABS 2 today, then 1 daily for 4 days 201 08/07/20 AZITHROMYCIN 40466752070 No Longer Active Columba Raida Act nael AUGMENTIN 875-125 MG TAB 1 po BID x 10 days AMOXICILLIN- POT CLAVULANATE 02894369666 No Longer Active Diya De Guzman APRN Active ZITHROMAX 250 MG TAB 2 po today, then 1 po q days 2-5 AZITHROMYCIN 80567906311 No Longer Active Carlton Hu MD Acti ve TRAMADOL HCL 50 MG TABS 1 po tid with ES Tylenol TRAMADOL HCL 59141933224 Active Carlton Hu MD Active PREMARIN 0.625 MG TABS TAKE 1 TAB BY MOUTH DAILY 07/25 ESTROGENS CONJUGATED 21879664349 No Longer Active Ridge Bess DO Active CYMBALTA 30 MG CPEP 1 cap by mouth daily DULOXE SNEHA HCL 88780598084 No Longer Active Ridge Bess DO Active AMOXICILLIN 500 MG CAP 1 tab by mouth 3 times daily x 10 days 20 14/04/28 AMOXICILLIN 74401484653 No Longer Active Carlton Hu MD Active AMOXICILLIN 500 MG CAP 1 tab by mouth 3 times daily x 10 days 20 13/03/08 AMOXICILLIN 15510692615 No Longer Active Carlton Hu MD Active PROMETHAZINE-CODEINE 6.25-10 MG/5ML SYRP 1 tsp by mouth ever y 8 hours prn cough PROMETHAZINE-CODEINE 87112593338 No Longer Active Robert Hu MD Active MEDROL (REYNA) 4 MG TABS 6 pills x 1 day, then 5 pill s x 1 day then 4 pills x 1 day, then 3 pills x 1 day, then 2 pills x 1 day, then 1 pill x 1 day, then stop METHYLPREDNISOLONE 24465601720 No Longer Active Parris Mora MD Active AZITHROMYCIN 250 MG TABS 2 po qd x 1 day, then 1 po qd x 4 days AZITHROMYCIN 50598835299 No Longer Active Perez Mora MD Active SYMBICORT 160-4.5 MCG/ACT AERO 2 puffs bid with rinse after 2011 BUDESONIDE-FORMOTEROL FUMARATE 08904954503 No Longer Active Perez Mora MD Active LYRICA 75 MG CAPS TAKE 1 CAPSULE BY MOUTH TWICE DAILY 2013 PREGABALIN 49097745783 No Longer Active Carlton Hu MD Active LYRICA 100 MG CAPS Take 1 tab po BID for fibromyalgia PREGABALIN 13397606734 Active Elise Whitmore APRN Active TOPAMAX 25 MG TABS 1 qHS x 1 week, then 1 BID x 1 week, then 1 qAM and 2 qHS x 1 week, then 2 BID (migraine prevention) TOPIRAMAT E 20170207800 No Longer Active Jerica Farnaz FUENTES Active TOPAMAX 50 MG TABS take 1 tab po BID for migraines. 12/07/10 TOPIRAMATE 36156683235 No Longer Active Jerica Manzoerica AGUILARA Ac tive TOPAMAX 100 MG TABS Take 1 tablet po bid TOPIRAMATE 4999 8013941 Active Carlton Hu MD Active TRIAMCINOLONE ACETONIDE 0.1 % CREA apply three times daily prn r beatrice TRIAMCINOLONE ACETONIDE 80078297917 No Longer Active Carlton Hu MD Active PAXIL 40 MG TAB take 1 tab po qday for depression PAROXETINE HCL 67591901500 Active Elise Whitmore [employer] Active CHERATUSSIN AC 100-10 MG/5ML SYRP 5ml po q6hr PRN Cough GUAIFENESIN-CODEINE 70053259405 No Longer Active Carlton Hu MD Active MEDROL (REYNA) 4 MG TABS 6 tabs on day 1, 5 tabs on d ay 2, 4 tabs on day 3, 3 tabs on day 4, 2 tabs on day 5, 1 tab on day 6 METHYLPREDNISOLONE 69412078785 No Longer Active Perez Mora MD Active AZITHROMYCIN 250 MG TABS 2 po qd x 1 day, then 1 po qd x 4 days AZITHROMYCIN 67781485305 No Longer Active Perez Mora MD Active PROPRANOLOL HCL 60 MG TABS 1 PO Q D PROPRANOL OL HCL 26570448173 No Longer Active Perez Mora MD Active CHERATUSSIN AC 100-10 MG/5ML SYRP take one tsp po Q 6hours prn c ough GUAIFENESIN-CODEINE 69129650482 No Longer Active Perez Means Active AUGMENTIN 875-125 MG TAB 1 tab by mouth twice daily with food 20 12/03/31 AMOXICILLIN-POT CLAVULANATE 15453282479 No Longer Active Chanel Mora MD Active CHERATUSSIN AC 100-10 MG/5ML SYRP 1 tsp by mouth every 4 hours as needed for cough GUAIFENESIN-CODEINE 57065994332 No Longer Activ e Hugo Restrepo MD Active ACETAMINOPHEN-CODEINE #3 300-30 MG TABS 1 PO Q 4-6 HRS PRN PAIN ACETAMINOPHEN-CODEINE 51807912688 No Longer Active Hugo Restrepo MD Active LEVAQUIN 500 MG TABS take one po QD LEVOFLOXACI N 29496142412 No Longer Active Griffin HERNANDEZ Active PREDNISONE 20 MG TAB Take 3 tabs daily for 3 days , 2 tabs daily for 3 days, 1 tab daily for 3 days, 1/2 tab daily for 3 days P REDNISONE 59519675433 No Longer Active Carlton Hu MD Active AVELOX 400 MG TABS 1 tab by mouth daily MOXIFLO XACIN HCL 54740660210 No Longer Active Carlton Hu MD Active CHERATUSSIN AC 100-10 MG/5ML SYRP 1 tsp by mouth every 4 hours as needed for cough GUAIFENESIN-CODEINE 11880440439 No Longer Activ e Hugo Restrepo MD Active AVELOX 400 MG TABS 1 tab by mouth daily MOXIFLO XACIN HCL 61990052008 No Longer Active Marcy De La Rosa MD PhD Active TERBINAFINE HCL 250 MG TABS 1 qDay TERBINAF INE HCL 90850411446 No Longer Active Marcy De La Rosa MD PhD Active CHERATUSSIN AC 100-10 MG/5ML SYRP 1 tsp by mouth every 4 hours as needed for cough GUAIFENESIN-CODEINE 21773828664 No Longer Activ e Marcy De La Rosa MD PhD Active AVELOX 400 MG TABS 1 tab by mouth daily MOXIFLO XACIN HCL 52367001761 No Longer Active Marcy De La Rosa MD PhD Active HYDROCODONE-ACETAMINOPHEN 5-325 MG TABS 1 po q 6hr PRN cough 201 05/09/16 HYDROCODONE-ACETAMINOPHEN 01053052974 No Longer Active Marcy De La Rosa MD PhD Active PREDNISONE 20 MG TAB 2 tabs daily for 3 days, 1 t ab daily for 3 days, 1/2 tab daily for 2 days PREDNISONE 69162122182 No Longer Active Carlton Hu MD Active CEFDINIR 300 MG CAPS by mouth twice a day CEFDI ODILIA 95823472725 No Longer Active Carlton Hu MD Active HYDROCHLOROTHIAZIDE 25 MG TABS 1 TAB PO DAILY H YDROCHLOROTHIAZIDE 53731444351 Active Carlton Hu MD Active ACETAMINOPHEN-CODEINE #3 300-30 MG TABS 1 tablet po q 4-6hrs prn pain ACETAMINOPHEN-CODEINE 07441176640 No Longer Active Ridge Bess DO Active ZITHROMAX 250 MG TAB 2 po today, then 1 po q days 2-5 AZITHROMYCIN 77613715711 No Longer Active Carlton Hu MD Acti ve CHERATUSSIN AC 100-10 MG/5ML SYRP take 1 tsp po q4-6 hours prn c ough GUAIFENESIN-CODEINE 34532307828 No Longer Active Carlton Hu MD Active ACETAMINOPHEN-CODEINE #3 300-30 MG TABS 1 PO Q 4-6 HR PRN PAIN 2 ACETAMINOPHEN-CODEINE 15718345502 No Longer Active Carlton rich MD Active LORTAB 7.5-500 MG/15ML ELIX 7.5 ml po q 4 hour prn cough HYDROCODONE-ACETAMINOPHEN 39587238755 No Longer Active Carlton Hu MD Active PREDNISONE 20 MG TAB 1 po bid 3 days, then 1 po q day 3 days 201 05/03/07 PREDNISONE 60330329554 No Longer Active Carlton Hu MD Active ELMIRON 100 MG CAPS 2 tablets in the am and 1 tablet at hs PENTOSAN POLYSULFATE SODIUM 26581666474 Active Carlton Hu MD Ac tive CEFDINIR 300 MG CAPS by mouth twice a day CEFDI ODILIA 83542499773 No Longer Active Carlton Hu MD Active CEFDINIR 300 MG CAPS by mouth twice a day CEFDI ODILIA 82656085199 No Longer Active Carlton Hu MD Active CEFDINIR 300 MG CAPS by mouth twice a day CEFDI ODILIA 61805425284 No Longer Active Carlton Hu MD Active TESSALON PERLES 100 MG CAP 1 tablet by mouth 3 times daily a s needed for cough BENZONATATE 50238426691 No Longer Active Carlton bustamante MD Active CEFDINIR 300 MG CAPS by mouth twice a day CEFDI ODILIA 36666841865 No Longer Active Carlton Hu MD Active ZITHROMAX Z-REYNA 250 MG TABS 2 today, then 1 daily for 4 days 201 04/09/17 AZITHROMYCIN 96807589369 No Longer Active Hugo Restrepo MD Active TESSALON PERLES 100 MG CAP 1 tablet by mouth 3 times daily a s needed for cough TESSALON PERLES 100 MG CAP 536005 BENZONATATE I nactive PREDNISONE 20 MG TAB 1 po bid 3 days, then 1 po q day 3 days 201 05/03/07 PREDNISONE 20 MG TAB 723889 PREDNISONE Inactive LORTAB 7.5-500 MG/15ML ELIX 7.5 ml po q 4 hour prn cough LORTAB 7.5-500 MG/15ML ELIX HYDROCODONE-ACETAMINOPHEN Inacti ve ACETAMINOPHEN-CODEINE #3 300-30 MG TABS 1 PO Q 4-6 HR PRN PAIN 2 ACETAMINOPHEN-CODEINE #3 300-30 MG TABS 229624 ACETAMIN OPHEN-CODEINE Inactive CHERATUSSIN AC 100-10 MG/5ML SYRP take 1 tsp po q4-6 hours prn c ough CHERATUSSIN AC 100-10 MG/5ML SYRP 462623 GUAIFENESIN-CO DEINE Inactive ACETAMINOPHEN-CODEINE #3 300-30 MG TABS 1 tablet po q 4-6hrs prn pain ACETAMINOPHEN-CODEINE #3 300-30 MG TABS 447140 ACETAMIN OPHEN-CODEINE Inactive HYDROCODONE-ACETAMINOPHEN 5-325 MG TABS 1 po q 6hr PRN cough 201 05/09/16 HYDROCODONE-ACETAMINOPHEN 5-325 MG TABS 729516 HYDROCODONE-ACETAMINOPHEN Inactive AVELOX 400 MG TABS 1 tab by mouth daily A VELOX 400 MG TABS 619103 MOXIFLOXACIN HCL Inactive CHERATUSSIN AC 100-10 MG/5ML SYRP 1 tsp by mouth every 4 hours as needed for cough CHERATUSSIN AC 100-10 MG/5ML SYRP 662087 GUAIFENESIN-CODEINE Inactive TERBINAFINE HCL 250 MG TABS 1 qDay TERBINAFINE HCL 250 MG TABS 781175 TERBINAFINE HCL Inactive CHERATUSSIN AC 100-10 MG/5ML SYRP 1 tsp by mouth every 4 hours as needed for cough CHERATUSSIN AC 100-10 MG/5ML SYRP 279553 GUAIFENESIN-CODEINE Inactive ACETAMINOPHEN-CODEINE #3 300-30 MG TABS 1 PO Q 4-6 HRS PRN PAIN ACETAMINOPHEN-CODEINE #3 300-30 MG TABS 261849 ACETAMINOPHEN-CODEIN E Inactive CHERATUSSIN AC 100-10 MG/5ML SYRP 1 tsp by mouth every 4 hours as needed for cough CHERATUSSIN AC 100-10 MG/5ML SYRP 441702 GUAIFENESIN-CODEINE Inactive AUGMENTIN 875-125 MG TAB 1 tab by mouth twice daily with food 20 12/03/31 AUGMENTIN 875-125 MG TAB 530630 AMOXICILLIN-POT CLAVULA EFE Inactive CHERATUSSIN AC 100-10 MG/5ML SYRP take one tsp po Q 6hours prn c ough CHERATUSSIN AC 100-10 MG/5ML SYRP 148903 GUAIFENESIN-CO DEINE Inactive PROPRANOLOL HCL 60 MG TABS 1 PO Q D P ROPRANOLOL HCL 60 MG TABS 187029 PROPRANOLOL HCL Inactive TOPAMAX 50 MG TABS take 1 tab po BID for migraines. 12/07/10 TOPAMAX 50 MG TABS 797621 TOPIRAMATE Inactive TOPAMAX 25 MG TABS 1 qHS x 1 week, then 1 BID x 1 week, then 1 qAM and 2 qHS x 1 week, then 2 BID (migraine prevention) TOPAMAX 2 5 MG TABS 141944 TOPIRAMATE Inactive LYRICA 75 MG CAPS TAKE 1 CAPSULE BY MOUTH TWICE DAILY LYRICA 75 MG CAPS PREGABALIN Inactive SYMBICORT 160-4.5 MCG/ACT AERO 2 puffs bid with rinse after 2011 SYMBICORT 160-4.5 MCG/ACT AERO BUDESONIDE-FORMOT SÁNCHEZ FUMARATE Inactive PROMETHAZINE-CODEINE 6.25-10 MG/5ML SYRP 1 tsp by mouth ever y 8 hours prn cough PROMETHAZINE-CODEINE 6.25-10 MG/5ML SYRP 882411 PROMETHAZINE-CODEINE Inactive CYMBALTA 30 MG CPEP 1 cap by mouth daily CYMBALTA 30 MG CPEP 619771 DULOXETINE HCL Inactive PREMARIN 0.625 MG TABS TAKE 1 TAB BY MOUTH DAILY 07/25 PREMARIN 0.625 MG TABS ESTROGENS CONJUGATED Inactive CHERATUSSIN AC 100-10 MG/5ML SYRP 1 tsp by mouth every 4 hours as needed for cough CHERATUSSIN AC 100-10 MG/5ML SYRP 214724 GUAIFENESIN-CODEINE Inactive PROMETHAZINE-CODEINE 6.25-10 MG/5ML SYRP 1 tsp by mout h every 6 hours if needed for cough PROMETHAZINE-CODEINE 6.25-10 MG/5ML SYRP 071267 PROMETHAZINE-CODEINE Inactive CHERATUSSIN AC 100-10 MG/5ML SYRP 1 tsp by mouth every 4 hours as needed for cough CHERATUSSIN AC 100-10 MG/5ML SYRP 097265 GUAIFENESIN-CODEINE Inactive FLUTICASONE PROPIONATE 50 MCG/ACT SUSP 1 to 2 sprays each no stril daily FLUTICASONE PROPIONATE 50 MCG/ACT SUSP 605859 FLUTICASONE PROPIONATE Inactive PREDNISONE 20 MG ORAL TABS 3 tab PO qd x 2d, 2 tab PO qd x 2d, 1 tab PO qd x 2d, 1/2 tab PO qd x 2d PREDNISONE 20 MG ORAL TABS 421516 PREDNISONE Inactive LEVOFLOXACIN 500 MG ORAL TABS 1 tab PO daily x 10 days LEVOFLOXACIN 500 MG ORAL TABS 970386 LEVOFLOXACIN Inactive CYCLOBENZAPRINE HCL 10 MG TABS 1 tablet by mouth BID prn had cherelle n CYCLOBENZAPRINE HCL 10 MG TABS 027917 CYCLOBENZAPRINE H CL Inactive ZOCOR 40 MG TAB 1 tab by mouth daily ZOCOR 40 M G TAB 557821 SIMVASTATIN Inactive ZITHROMAX Z-REYNA 250 MG TABS 2 today, then 1 daily for 4 days 201 04/09/17 ZITHROMAX Z-REYNA 250 MG TABS 5955786 AZITHROMYCIN Inac tive CEFDINIR 300 MG CAPS [...] q days 2-5 ZITHROMAX 250 MG TAB 0419327 AZITHROMYCIN Inactive CEFDINIR 300 MG CAPS by mouth twice a day CEFDINIR 300 MG CAPS 20020704 CEFDINIR Inactive PREDNISONE 20 MG TAB 2 tabs daily for 3 days, 1 t ab daily for 3 days, 1/2 tab daily for 2 days PREDNISONE 20 MG TAB 070614 PREDNISON E Inactive AVELOX 400 MG TABS 1 tab by mouth daily A VELOX 400 MG TABS 101430 MOXIFLOXACIN HCL Inactive AVELOX 400 MG TABS 1 tab by mouth daily A VELOX 400 MG TABS 995595 MOXIFLOXACIN HCL Inactive PREDNISONE 20 MG TAB Take 3 tabs daily for 3 days , 2 tabs daily for 3 days, 1 tab daily for 3 days, 1/2 tab daily for 3 days PREDNISONE 20 MG TAB 008629 PREDNISONE Inactive LEVAQUIN 500 MG TABS take one po QD LEVAQUIN 50 0 MG TABS 812104 LEVOFLOXACIN Inactive AZITHROMYCIN 250 MG TABS 2 po qd x 1 day, then 1 po qd x 4 days AZITHROMYCIN 250 MG TABS 3470625 AZITHROMYCIN Inactiv e MEDROL (REYNA) 4 MG TABS 6 tabs on day 1, 5 tabs on d ay 2, 4 tabs on day 3, 3 tabs on day 4, 2 tabs on day 5, 1 tab on day 6 MEDROL (REYNA) 4 MG TABS 675475 METHYLPREDNISOLONE Inactive CHERATUSSIN AC 100-10 MG/5ML SYRP 5ml po q6hr PRN Cough CHERATUSSIN AC 100-10 MG/5ML SYRP 633835 GUAIFENESIN-CODEINE Inacti ve TRIAMCINOLONE ACETONIDE 0.1 % CREA apply three times daily prn r beatrice TRIAMCINOLONE ACETONIDE 0.1 % CREA 3323136 TRIAMCINOLONE ACETONIDE Inactive AZITHROMYCIN 250 MG TABS 2 po qd x 1 day, then 1 po qd x 4 days AZITHROMYCIN 250 MG TABS 9994933 AZITHROMYCIN Inactiv e MEDROL (REYNA) 4 MG TABS 6 pills x 1 day, then 5 pill s x 1 day then 4 pills x 1 day, then 3 pills x 1 day, then 2 pills x 1 day, then 1 pill x 1 day, then stop MEDROL (REYNA) 4 MG TABS 480171 METHYLPREDNISOLONE Inactive AMOXICILLIN 500 MG CAP 1 tab by mouth 3 times daily x 10 days 20 13/03/08 AMOXICILLIN 500 MG CAP 694933 AMOXICILLIN Inactive AMOXICILLIN 500 MG CAP 1 tab by mouth 3 times daily x 10 days 20 14/04/28 AMOXICILLIN 500 MG CAP 654182 AMOXICILLIN Inactive ZITHROMAX 250 MG TAB 2 po today, then 1 po q days 2-5 ZITHROMAX 250 MG TAB 5778062 AZITHROMYCIN Inactive AUGMENTIN 875-125 MG TAB 1 po BID x 10 days AUGMENTIN 875- 125 MG TAB 755826 AMOXICILLIN-POT CLAVULANATE Inactive ZITHROMAX Z-REYNA 250 MG TABS 2 today, then 1 daily for 4 days 201 08/07/20 ZITHROMAX Z-REYNA 250 MG TABS 6332254 AZITHROMYCIN Inac tive ZITHROMAX 250 MG TAB 2 po today, then 1 po q days 2-5 ZITHROMAX 250 MG TAB 0218577 AZITHROMYCIN Inactive ZITHROMAX Z-REYNA 250 MG TABS 2 today, then 1 daily for 4 days 201 08/30/03 ZITHROMAX Z-REYNA 250 MG TABS 5514482 AZITHROMYCIN Inac tive CEFDINIR 300 MG CAPS 1 po BID x 10 days C EFDINIR 300 MG CAPS 164798 CEFDINIR Inactive ZITHROMAX 250 MG TAB 2 po today, then 1 po q days 2-5 ZITHROMAX 250 MG TAB 0725282 AZITHROMYCIN Inactive LEVAQUIN 500 MG TAB 1 tablet by mouth daily LEVAQUIN 500 MG TAB 975759 LEVOFLOXACIN Inactive Vital Signs Date Name Value [...] Measured Encounters Code Encounter Date Provider Facility CPT-20840 Level 3 Est. Patient 10:11:46 CDT Carlton rich MD [facility] CPT-35432 Level 3 Est. Patient 17:29:43 CDT Italo KHAN [facility] CPT-00194 Level 3 Est. Patient 11:58:06 CDT Italo [employer] [facility] CPT-59604 Level 4 Est. Patient 14:36:51 CDT Carlton rich MD [facility] CPT-74096 Level 3 Est. Patient 18:16:00 [employer] Blaine W Cloven [facility] CPT-58944 Level 3 Est. Patient 09:45:49 [employer] Carlton rich MD [facility] CPT-71800 Level 3 Est. Patient 13:19:20 CDT Carlton rich MD [facility] CPT-75366 Level 3 Est. Patient 13:06:43 CDT Ridge tam DO [facility] CPT-48990 Level 3 Est. Patient 10:03:07 CDT Perez Mora MD [facility] CPT-35896 Level 3 Est. Patient 19:50:35 [employer] Carlton rich MD [facility]-35869 Level 4 Est. Patient 18:05:01 [employer] Carlton rich MD [facility] CPT-89337 Level 3 Est. Patient 10:45:55 [employer] Hugo Restrepo MD [facility] CPT-86521 Level 3 Est. Patient 14:12:49 CDT Griffin lincoln [facility] CPT-01418 Level 3 Est. Patient 17:37:24 CDT Carlton rich MD [facility] CPT-92795 Level 3 Est. Patient 16:51:54 CDT Carlton rich MD [facility] CPT-46888 Level 3 Est. Patient 12:18:11 CDT Hugo Restrepo MD [facility] CPT-51857 Level 3 Est. Patient 11:30:25 CDT Marcy crisostomo MD PhD [facility]-91783 Level 3 Est. Patient 12:00:47 [employer] Carlton rich MD [facility]-40485 Level 3 Est. Patient 16:31:06 [employer] Carlton rich MD [facility]-09253 Level 3 Est. Patient 16:23:24 [employer] Ridge tam [facility] CPT-51710 Level 3 Est. Patient 12:34:12 CDT Carlton rich MD [facility] CPT-65585 Level 2 Est. Patient 15:43:33 CDT Robi armstrong MD [facility] CPT-13864 Level 4 Est. Patient 14:04:44 CDT Carlton rich MD [facility] CPT-81240 Level 3 Est. Patient 05:47:59 CDT Ridge tam [facility] CPT-39890 Level 3 Est. Patient 13:12:53 [employer] Carlton rich MD [facility] CPT-22791 Level 3 Est. Patient 14:26:53 CDT Hugo Restrepo MD [facility] Procedures Code Procedure Name Date Entry Date Standard Desc ription CPT-J0696 Rocephin 1gm Inj Solr 14:32:13 CDT CPT-J1020 Depo Medrol 60 mg (Methyl Prednisolone A cetate) 14:32:13 CDT CPT-J1100 Decadron 6mg (Dexamethasone) 14:32:13 CDT 2 CPT-32827 Hip bilat min 2V w AP pelvis 13:16:20 CDT 2 CPT-72599 Pelvis only 13:07:33 CDT CPT-59004 Spec Collection and Handling Fee 11:25:12 C DT CPT-81303 Fluzone Quadrivalent Intramuscular Suspe nsion 0.5 ML 14:31:55 CDT CPT-47325 Abx/Therapy Injection 13:28:47 [employer] CPT-J2930 Solu Medrol 125 mg (Methyl Prednisolone Sodium Succinate) 12:00:47 [employer] CPT-32175 Venipuncture Draw Fee 11:33:31 CDT CPT-54057 EKG Trac and Interp 11:21:09 CDT CPT-32684 Chest 2V Frontal and Lat 11:21:09 CDT 12/15 CPT-94116 Venipuncture Draw Fee 08:02:34 CDT CPT-70706 Chest 2V Frontal and Lat 05:47:59 CDT 06/05
--- OUTSIDE RECORDS SUMMARY | 2019-10-08 08:40 | XMS REPORT | Clinical Summary ---
Author Author Caitlin, Juliana Martinez Organization [employer] [facility] Address Unknown Phone Unavailable Allergies, Adverse [...] PRN Cough 20 14/09/04 HYDROCOD POLST-CHLORPHEN POLST 30835623827 Active Elise Whitmore APRN Active ZITHROMAX 250 MG TAB 2 po today, then 1 po q days 2-5 AZITHROMYCIN 79048467390 No Longer Active Elise Whitmore APRN Acti ve TUSSIONEX PENNKINETIC ER 10-8 MG/5ML LQCR 5 ml twice a day a s needed for cough HYDROCOD POLST-CHLORPHEN POLST 22120067790 N o Longer Active Elise Whitmore APRN Active MONTELUKAST SODIUM 10 MG ORAL TABS 1 po daily for Allergy 6 MONTELUKAST SODIUM 12596777826 Active ALFREDO Holly Act nael TUSSIONEX PENNKINETIC ER 10-8 MG/5ML LQCR 5ml po q12hr PRN Cough HYDROCOD POLST-CHLORPHEN POLST 22448885807 No Longer Active Hugo Restrepo MD Active GABAPENTIN 100 MG CAPS 1 po BID for fibromyalgia GABAPENTIN 85951479572 Active Elise Whitmore APRN Active LYRICA 100 MG CAPS Take 1 tab po BID for fibromyalgia PREGABALIN 29936291881 No Longer Active Elise Whitmore APRN Acti ve PROAIR HFA 108 (90 BASE) MCG/ACT AERS 2 puffs four times a d ay as needed ALBUTEROL SULFATE 57503876577 Active Elise Whitmore APRN Active MUCINEX DM MAXIMUM STRENGTH 60-1200 MG [id number] 1 tab po q am 2016 DEXTROMETHORPHAN-GUAIFENESIN 07948196619 Active Jillina Cesarl SCREEN MAKING SUPERVISOR Active PREDNISONE 20 MG TAB 2 tabs daily for 3 days, 1 t ab daily for 3 days, 1/2 tab daily for 2 days PREDNISONE 66684260089 No Longer Active Jillina Frakerriel SCREEN MAKING SUPERVISOR Active TUSSIONEX PENNKINETIC ER 10-8 MG/5ML ORAL LQCR 5 mL PO q 12 hrs PRN cough HYDROCOD POLST-CHLORPHEN POLST 80629945734 No Longer Active Jillina Frazell SCREEN MAKING SUPERVISOR Active FLUTICASONE PROPIONATE 50 MCG/ACT SUSP 2 sprays each n ostril daily until bottle is empty FLUTICASONE PROPIONATE 95357389642 No Longer Ac tive Jillina Frazell SCREEN MAKING SUPERVISOR Active ASMANEX 60 METERED DOSES 220 MCG/INH AEPB 1 puff bid with ri nse after MOMETASONE FUROATE 07305913807 No Longer Active Jillina Darlin ell SCREEN MAKING SUPERVISOR Active ZITHROMAX Z-REYNA 250 MG TABS 2 today, then 1 daily for 4 days 201 09/29/14 AZITHROMYCIN 97091937329 No Longer Active Elise Whitmore APRN Active TUSSIONEX PENNKINETIC ER 10-8 MG/5ML LQCR 5ml po q12hr PRN Cough HYDROCOD POLST-CHLORPHEN POLST 21104727754 No Longer Active Elise Whitmore SCREEN MAKING SUPERVISOR Active MUCINEX D 60-600 MG [id number] 1 tab po q am PSEUDOEPHEDRINE-GUAIFENESIN 11333257879 Active Jillina Frazell SCREEN MAKING SUPERVISOR Active PREDNISONE 20 MG TAB 2 tabs daily for 3 days, 1 t ab daily for 3 days, 1/2 tab daily for 2 days PREDNISONE 77920416659 No Longer Active Jillina Frazell SCREEN MAKING SUPERVISOR Active AMOXICILLIN 500 MG CAPS 2 po BID x 10 days AMOX ICILLIN 71405159845 No Longer Active Jillina Frazell SCREEN MAKING SUPERVISOR Active SINGULAIR 10 MG TABS 1 po qday for allergies 2 MONTELUKAST SODIUM 91480857339 No Longer Active Carlton Hu MD Acti ve LEVAQUIN 500 MG TAB 1 tablet by mouth daily LEV OFLOXACIN 97864823311 No Longer Active Carlton Hu MD Active FLUTICASONE PROPIONATE 50 MCG/ACT SUSP 2 sprays each n ostril daily for 2 weeks, then 1 spray each nostril daily. FLUTICASONE PRO PIONATE 95216366782 Active Elise Whitmore APRN Active ZITHROMAX 250 MG TAB 2 po today, then 1 po q days 2-5 AZITHROMYCIN 99833934231 No Longer Active Elise Whitmore APRN Acti ve XANAX 0.5 MG TABS one tablet by mouth daily prn anxiety ALPRAZOLAM 78984954615 Active Elise Whitmore APRN Active CYMBALTA 30 MG CPEP 1 cap by mouth daily for depression DULOXETINE HCL 09244766833 Active Carlton Hu MD Active CEFDINIR 300 MG CAPS 1 po BID x 10 days CEFDINI R 50724487737 No Longer Active Carlton Hu MD Active ZOCOR 40 MG TAB 1 tab by mouth daily SIMVASTATI N 57603818438 No Longer Active Carlton Hu MD Active CYCLOBENZAPRINE HCL 10 MG TABS 1 tablet by mouth BID prn had cherelle n CYCLOBENZAPRINE HCL 24862000394 No Longer Active Carlton Hu MD Active LEVOFLOXACIN 500 MG ORAL TABS 1 tab PO daily x 10 days LEVOFLOXACIN 32613988788 No Longer Active Carlton Hu MD Acti ve PREDNISONE 20 MG ORAL TABS 3 tab PO qd x 2d, 2 tab PO qd x 2d, 1 tab PO qd x 2d, 1/2 tab PO qd x 2d PREDNISONE 97510803192 No Longer Active Carlton Hu MD Active FLUTICASONE PROPIONATE 50 MCG/ACT SUSP 1 to 2 sprays each no stril daily FLUTICASONE PROPIONATE 95598244564 No Longer Active T jaz HERNANDEZ Active CHERATUSSIN AC 100-10 MG/5ML SYRP 1 tsp by mouth every 4 hours as needed for cough GUAIFENESIN-CODEINE 17464842055 No Longer Activ e Blaine HERNANDEZ Active PROMETHAZINE-CODEINE 6.25-10 MG/5ML SYRP 1 tsp by mout h every 6 hours if needed for cough PROMETHAZINE-CODEINE 64443641090 No Long er Active Blaine HERNANDEZ Active CHERATUSSIN AC 100-10 MG/5ML SYRP 1 tsp by mouth every 4 hours as needed for cough GUAIFENESIN-CODEINE 99406479676 No Longer Activ e Blaine HERNANDEZ Active ZITHROMAX Z-REYNA 250 MG TABS 2 today, then 1 daily for 4 days 201 08/30/03 AZITHROMYCIN 29821394233 No Longer Active Columba Raida Act nael ZITHROMAX 250 MG TAB 2 po today, then 1 po q days 2-5 AZITHROMYCIN 24382747929 No Longer Active Carlton Hu MD Acti ve ZITHROMAX Z-REYNA 250 MG TABS 2 today, then 1 daily for 4 days 201 08/07/20 AZITHROMYCIN 15160460170 No Longer Active Columba Raida Act nael AUGMENTIN 875-125 MG TAB 1 po BID x 10 days AMOXICILLIN- POT CLAVULANATE 44051435361 No Longer Active Jillina Frazell SCREEN MAKING SUPERVISOR Active ZITHROMAX 250 MG TAB 2 po today, then 1 po q days 2-5 AZITHROMYCIN 46773638110 No Longer Active Carlton Hu MD Acti ve TRAMADOL HCL 50 MG TABS 1 po tid with ES Tylenol TRAMADOL HCL 04441491553 Active Carlton Hu MD Active PREMARIN 0.625 MG TABS TAKE 1 TAB BY MOUTH DAILY 07/25 ESTROGENS CONJUGATED 17912589460 No Longer Active Ridge Bess DO Active CYMBALTA 30 MG CPEP 1 cap by mouth daily DULOXE SNEHA HCL 41908886591 No Longer Active Ridge Bess DO Active AMOXICILLIN 500 MG CAP 1 tab by mouth 3 times daily x 10 days 20 14/04/28 AMOXICILLIN 06022136143 No Longer Active Carlton Hu MD Active AMOXICILLIN 500 MG CAP 1 tab by mouth 3 times daily x 10 days 20 13/03/08 AMOXICILLIN 09942309157 No Longer Active Carlton Hu MD Active PROMETHAZINE-CODEINE 6.25-10 MG/5ML SYRP 1 tsp by mouth ever y 8 hours prn cough PROMETHAZINE-CODEINE 71787055814 No Longer Active Robert Hu MD Active MEDROL (REYNA) 4 MG TABS 6 pills x 1 day, then 5 pill s x 1 day then 4 pills x 1 day, then 3 pills x 1 day, then 2 pills x 1 day, then 1 pill x 1 day, then stop METHYLPREDNISOLONE 12565668608 No Longer Active Parris Mora MD Active AZITHROMYCIN 250 MG TABS 2 po qd x 1 day, then 1 po qd x 4 days AZITHROMYCIN 40970795395 No Longer Active Perez Mora MD Active SYMBICORT 160-4.5 MCG/ACT AERO 2 puffs bid with rinse after 2011 BUDESONIDE-FORMOTEROL FUMARATE 26474122106 No Longer Active Perez Mora MD Active LYRICA 75 MG CAPS TAKE 1 CAPSULE BY MOUTH TWICE DAILY 2013 PREGABALIN 41246376931 No Longer Active Carlton Hu MD Active TOPAMAX 25 MG TABS 1 qHS x 1 week, then 1 BID x 1 week, then 1 qAM and 2 qHS x 1 week, then 2 BID (migraine prevention) TOPIRAMAT E 50997504825 No Longer Active Jerica FUENTES Active TOPAMAX 50 MG TABS take 1 tab po BID for migraines. 12/07/10 TOPIRAMATE 52041801470 No Longer Active Jerica FUENTES Ac tive TOPAMAX 100 MG TABS Take 1 tablet po bid TOPIRAMATE 4999 8517543 Active Elise Whitmore APRN Active TRIAMCINOLONE ACETONIDE 0.1 % CREA apply three times daily prn r beatrice TRIAMCINOLONE ACETONIDE 49995796298 No Longer Active Carlton Hu MD Active PAXIL 40 MG TAB take 1 tab po qday for depression PAROXETINE HCL 24285289425 Active Elise Whitmore APRN Active CHERATUSSIN AC 100-10 MG/5ML SYRP 5ml po q6hr PRN Cough GUAIFENESIN-CODEINE 95581134991 No Longer Active Carlton Hu MD Active MEDROL (REYNA) 4 MG TABS 6 tabs on day 1, 5 tabs on d ay 2, 4 tabs on day 3, 3 tabs on day 4, 2 tabs on day 5, 1 tab on day 6 METHYLPREDNISOLONE 50909720425 No Longer Active Perez Mora MD Active AZITHROMYCIN 250 MG TABS 2 po qd x 1 day, then 1 po qd x 4 days AZITHROMYCIN 32236237118 No Longer Active Perez Mora MD Active PROPRANOLOL HCL 60 MG TABS 1 PO Q D PROPRANOL OL HCL 33890688788 No Longer Active Perez Mora MD Active CHERATUSSIN AC 100-10 MG/5ML SYRP take one tsp po Q 6hours prn c ough GUAIFENESIN-CODEINE 76827301777 No Longer Active Perez Means Active AUGMENTIN 875-125 MG TAB 1 tab by mouth twice daily with food 12/03/31 AMOXICILLIN-POT CLAVULANATE 63828859875 No Longer Active Chanel Mora MD Active CHERATUSSIN AC 100-10 MG/5ML SYRP 1 tsp by mouth every 4 hours as needed for cough GUAIFENESIN-CODEINE 60626323822 No Longer Activ e Hugo Restrepo MD Active ACETAMINOPHEN-CODEINE #3 300-30 MG TABS 1 PO Q 4-6 HRS PRN PAIN ACETAMINOPHEN-CODEINE 50012056334 No Longer Active Hugo Restrepo MD Active LEVAQUIN 500 MG TABS take one po QD LEVOFLOXACI N 48418442784 No Longer Active Griffin HERNANDEZ Active PREDNISONE 20 MG TAB Take 3 tabs daily for 3 days , 2 tabs daily for 3 days, 1 tab daily for 3 days, 1/2 tab daily for 3 days P REDNISONE 80475852185 No Longer Active Carlton Hu MD Active AVELOX 400 MG TABS 1 tab by mouth daily MOXIFLO XACIN HCL 72189505243 No Longer Active Carlton Hu MD Active CHERATUSSIN AC 100-10 MG/5ML SYRP 1 tsp by mouth every 4 hours as needed for cough GUAIFENESIN-CODEINE 52916313907 No Longer Activ e Hugo Restrepo MD Active AVELOX 400 MG TABS 1 tab by mouth daily MOXIFLO XACIN HCL 24655226291 No Longer Active Marcy De La Rosa MD PhD Active TERBINAFINE HCL 250 MG TABS 1 qDay TERBINAF INE HCL 87528260720 No Longer Active Marcy De La Rosa MD PhD Active CHERATUSSIN AC 100-10 MG/5ML SYRP 1 tsp by mouth every 4 hours as needed for cough GUAIFENESIN-CODEINE 70595449187 No Longer Activ e Marcy De La Rosa MD PhD Active AVELOX 400 MG TABS 1 tab by mouth daily MOXIFLO XACIN HCL 93410237896 No Longer Active Marcy De La Rosa MD PhD Active HYDROCODONE-ACETAMINOPHEN 5-325 MG TABS 1 po q 6hr PRN cough 201 05/09/16 HYDROCODONE-ACETAMINOPHEN 01538159024 No Longer Active Marcy De La Rosa MD PhD Active PREDNISONE 20 MG TAB 2 tabs daily for 3 days, 1 t ab daily for 3 days, 1/2 tab daily for 2 days PREDNISONE 09253820830 No Longer Active Carlton Hu MD Active CEFDINIR 300 MG CAPS by mouth twice a day CEFDI ODILIA 85575363179 No Longer Active Carlton Hu MD Active HYDROCHLOROTHIAZIDE 25 MG TABS 1 TAB PO DAILY H YDROCHLOROTHIAZIDE 47750879404 Active Carlton Hu MD Active ACETAMINOPHEN-CODEINE #3 300-30 MG TABS 1 tablet po q 4-6hrs prn pain ACETAMINOPHEN-CODEINE 33681717962 No Longer Active Ridge Bess DO Active ZITHROMAX 250 MG TAB 2 po today, then 1 po q days 2-5 AZITHROMYCIN 72628423645 No Longer Active Carlton Hu MD Acti ve CHERATUSSIN AC 100-10 MG/5ML SYRP take 1 tsp po q4-6 hours prn c ough GUAIFENESIN-CODEINE 17798794981 No Longer Active Carlton Hu MD Active ACETAMINOPHEN-CODEINE #3 300-30 MG TABS 1 PO Q 4-6 HR PRN PAIN 2 ACETAMINOPHEN-CODEINE 37683900932 No Longer Active Carlton rich MD Active LORTAB 7.5-500 MG/15ML ELIX 7.5 ml po q 4 hour prn cough HYDROCODONE-ACETAMINOPHEN 21861332068 No Longer Active Carlton Hu MD Active PREDNISONE 20 MG TAB 1 po bid 3 days, then 1 po q day 3 days 201 05/03/07 PREDNISONE 83900868020 No Longer Active Carlton Hu MD Active ELMIRON 100 MG CAPS 2 tablets in the am and 1 tablet at hs PENTOSAN POLYSULFATE SODIUM 78419040915 Active Carlton Hu MD Ac tive CEFDINIR 300 MG CAPS by mouth twice a day CEFDI ODILIA 11109944895 No Longer Active Carlton Hu MD Active CEFDINIR 300 MG CAPS by mouth twice a day CEFDI ODILIA 11641656966 No Longer Active Carlton Hu MD Active CEFDINIR 300 MG CAPS by mouth twice a day CEFDI ODILIA 12588403976 No Longer Active Carlton Hu MD Active TESSALON PERLES 100 MG CAP 1 tablet by mouth 3 times daily a s needed for cough BENZONATATE 41332153320 No Longer Active Carlton bustamante MD Active CEFDINIR 300 MG CAPS by mouth twice a day CEFDI ODILIA 51339544728 No Longer Active Carlton Hu MD Active ZITHROMAX Z-REYNA 250 MG TABS 2 today, then 1 daily for 4 days 201 04/09/17 AZITHROMYCIN 19689950731 No Longer Active Hugo Restrepo MD Active TESSALON PERLES 100 MG CAP 1 tablet by mouth 3 times daily a s needed for cough TESSALON PERLES 100 MG CAP 874074 BENZONATATE I nactive PREDNISONE 20 MG TAB 1 po bid 3 days, then 1 po q day 3 days 201 05/03/07 PREDNISONE 20 MG TAB 167713 PREDNISONE Inactive LORTAB 7.5-500 MG/15ML ELIX 7.5 ml po q 4 hour prn cough LORTAB 7.5-500 MG/15ML ELIX HYDROCODONE-ACETAMINOPHEN Inacti ve ACETAMINOPHEN-CODEINE #3 300-30 MG TABS 1 PO Q 4-6 HR PRN PAIN 2 ACETAMINOPHEN-CODEINE #3 300-30 MG TABS ACETAMIN OPHEN-CODEINE Inactive CHERATUSSIN AC 100-10 MG/5ML SYRP take 1 tsp po q4-6 hours prn c ough CHERATUSSIN AC 100-10 MG/5ML SYRP 587635 GUAIFENESIN-CO DEINE Inactive ACETAMINOPHEN-CODEINE #3 300-30 MG TABS 1 tablet po q 4-6hrs prn pain ACETAMINOPHEN-CODEINE #3 300-30 MG TABS ACETAMIN OPHEN-CODEINE Inactive HYDROCODONE-ACETAMINOPHEN 5-325 MG TABS 1 po q 6hr PRN cough 201 05/09/16 HYDROCODONE-ACETAMINOPHEN 5-325 MG TABS 893214 HYDROCODONE-ACETAMINOPHEN Inactive AVELOX 400 MG TABS 1 tab by mouth daily A VELOX 400 MG TABS 340532 MOXIFLOXACIN HCL Inactive CHERATUSSIN AC 100-10 MG/5ML SYRP 1 tsp by mouth every 4 hours as needed for cough CHERATUSSIN AC 100-10 MG/5ML SYRP 296881 GUAIFENESIN-CODEINE Inactive TERBINAFINE HCL 250 MG TABS 1 qDay TERBINAFINE HCL 250 MG TABS 104488 TERBINAFINE HCL Inactive CHERATUSSIN AC 100-10 MG/5ML SYRP 1 tsp by mouth every 4 hours as needed for cough CHERATUSSIN AC 100-10 MG/5ML SYRP 549107 GUAIFENESIN-CODEINE Inactive ACETAMINOPHEN-CODEINE #3 300-30 MG TABS 1 PO Q 4-6 HRS PRN PAIN ACETAMINOPHEN-CODEINE #3 300-30 MG TABS ACETAMINOPHEN-CODEIN E Inactive CHERATUSSIN AC 100-10 MG/5ML SYRP 1 tsp by mouth every 4 hours as needed for cough CHERATUSSIN AC 100-10 MG/5ML SYRP 484957 GUAIFENESIN-CODEINE Inactive AUGMENTIN 875-125 MG TAB 1 tab by mouth twice daily with food 20 12/03/31 AUGMENTIN 875-125 MG TAB 974596 AMOXICILLIN-POT CLAVULA EFE Inactive CHERATUSSIN AC 100-10 MG/5ML SYRP take one tsp po Q 6hours prn c ough CHERATUSSIN AC 100-10 MG/5ML SYRP 743997 GUAIFENESIN-CO DEINE Inactive PROPRANOLOL HCL 60 MG TABS 1 PO Q D P ROPRANOLOL HCL 60 MG TABS 287043 PROPRANOLOL HCL Inactive TOPAMAX 50 MG TABS take 1 tab po BID for migraines. 12/07/10 TOPAMAX 50 MG TABS 646591 TOPIRAMATE Inactive TOPAMAX 25 MG TABS 1 qHS x 1 week, then 1 BID x 1 week, then 1 qAM and 2 qHS x 1 week, then 2 BID (migraine prevention) TOPAMAX 2 5 MG TABS 295735 TOPIRAMATE Inactive LYRICA 75 MG CAPS TAKE 1 CAPSULE BY MOUTH TWICE DAILY LYRICA 75 MG CAPS PREGABALIN Inactive SYMBICORT 160-4.5 MCG/ACT AERO 2 puffs bid with rinse after 2011 SYMBICORT 160-4.5 MCG/ACT AERO BUDESONIDE-FORMOT SÁNCHEZ FUMARATE Inactive PROMETHAZINE-CODEINE 6.25-10 MG/5ML SYRP 1 tsp by mouth ever y 8 hours prn cough PROMETHAZINE-CODEINE 6.25-10 MG/5ML SYRP 785738 PROMETHAZINE-CODEINE Inactive CYMBALTA 30 MG CPEP 1 cap by mouth daily CYMBALTA 30 MG CPEP 591185 DULOXETINE HCL Inactive PREMARIN 0.625 MG TABS TAKE 1 TAB BY MOUTH DAILY 07/25 PREMARIN 0.625 MG TABS ESTROGENS CONJUGATED Inactive CHERATUSSIN AC 100-10 MG/5ML SYRP 1 tsp by mouth every 4 hours as needed for cough CHERATUSSIN AC 100-10 MG/5ML SYRP 835377 GUAIFENESIN-CODEINE Inactive PROMETHAZINE-CODEINE 6.25-10 MG/5ML SYRP 1 tsp by mout h every 6 hours if needed for cough PROMETHAZINE-CODEINE 6.25-10 MG/5ML SYRP 519282 PROMETHAZINE-CODEINE Inactive CHERATUSSIN AC 100-10 MG/5ML SYRP 1 tsp by mouth every 4 hours as needed for cough CHERATUSSIN AC 100-10 MG/5ML SYRP 943843 GUAIFENESIN-CODEINE Inactive FLUTICASONE PROPIONATE 50 MCG/ACT SUSP 1 to 2 sprays each no stril daily FLUTICASONE PROPIONATE 50 MCG/ACT SUSP 3444431 FLUTICASONE PROPIONATE Inactive PREDNISONE 20 MG ORAL TABS 3 tab PO qd x 2d, 2 tab PO qd x 2d, 1 tab PO qd x 2d, 1/2 tab PO qd x 2d PREDNISONE 20 MG ORAL TABS 806371 PREDNISONE Inactive LEVOFLOXACIN 500 MG ORAL TABS 1 tab PO daily x 10 days LEVOFLOXACIN 500 MG ORAL TABS 464488 LEVOFLOXACIN Inactive CYCLOBENZAPRINE HCL 10 MG TABS 1 tablet by mouth BID prn had cherelle n CYCLOBENZAPRINE HCL 10 MG TABS 820912 CYCLOBENZAPRINE H CL Inactive ZOCOR 40 MG TAB 1 tab by mouth daily ZOCOR 40 M G TAB 119833 SIMVASTATIN Inactive TUSSIONEX PENNKINETIC ER 10-8 MG/5ML [...] empty FLUTICASONE PROPIONATE 50 MCG/ACT SUSP 17 94000 FLUTICASONE PROPIONATE Inactive TUSSIONEX PENNKINETIC ER 10-8 [...] 201 04/09/17 ZITHROMAX Z-REYNA 250 MG TABS 8007612 AZITHROMYCIN Inac tive CEFDINIR 300 MG CAPS [...] q days 2-5 ZITHROMAX 250 MG TAB 0613503 AZITHROMYCIN Inactive CEFDINIR 300 MG CAPS by mouth twice a day CEFDINIR 300 MG CAPS 20020704 CEFDINIR Inactive PREDNISONE 20 MG TAB 2 tabs daily for 3 days, 1 t ab daily for 3 days, 1/2 tab daily for 2 days PREDNISONE 20 MG TAB 022295 PREDNISON E Inactive AVELOX 400 MG TABS 1 tab by mouth daily A VELOX 400 MG TABS 243368 MOXIFLOXACIN HCL Inactive AVELOX 400 MG TABS 1 tab by mouth daily A VELOX 400 MG TABS 222298 MOXIFLOXACIN HCL Inactive PREDNISONE 20 MG TAB Take 3 tabs daily for 3 days , 2 tabs daily for 3 days, 1 tab daily for 3 days, 1/2 tab daily for 3 days PREDNISONE 20 MG TAB 194111 PREDNISONE Inactive LEVAQUIN 500 MG TABS take one po QD LEVAQUIN 50 0 MG TABS 781270 LEVOFLOXACIN Inactive AZITHROMYCIN 250 MG TABS 2 po qd x 1 day, then 1 po qd x 4 days AZITHROMYCIN 250 MG TABS 9391263 AZITHROMYCIN Inactiv e MEDROL (REYNA) 4 MG TABS 6 tabs on day 1, 5 tabs on d ay 2, 4 tabs on day 3, 3 tabs on day 4, 2 tabs on day 5, 1 tab on day 6 MEDROL (REYNA) 4 MG TABS 185349 METHYLPREDNISOLONE Inactive CHERATUSSIN AC 100-10 MG/5ML SYRP 5ml po q6hr PRN Cough CHERATUSSIN AC 100-10 MG/5ML SYRP 676919 GUAIFENESIN-CODEINE Inacti ve TRIAMCINOLONE ACETONIDE 0.1 % CREA apply three times daily prn r beatrice TRIAMCINOLONE ACETONIDE 0.1 % CREA 5739477 TRIAMCINOLONE ACETONIDE Inactive AZITHROMYCIN 250 MG TABS 2 po qd x 1 day, then 1 po qd x 4 days AZITHROMYCIN 250 MG TABS 5958493 AZITHROMYCIN Inactiv e MEDROL (REYNA) 4 MG TABS 6 pills x 1 day, then 5 pill s x 1 day then 4 pills x 1 day, then 3 pills x 1 day, then 2 pills x 1 day, then 1 pill x 1 day, then stop MEDROL (REYNA) 4 MG TABS 592305 METHYLPREDNISOLONE Inactive AMOXICILLIN 500 MG CAP 1 tab by mouth 3 times daily x 10 days 20 13/03/08 AMOXICILLIN 500 MG CAP 516720 AMOXICILLIN Inactive AMOXICILLIN 500 MG CAP 1 tab by mouth 3 times daily x 10 days 20 14/04/28 AMOXICILLIN 500 MG CAP 535612 AMOXICILLIN Inactive ZITHROMAX 250 MG TAB 2 po today, then 1 po q days 2-5 ZITHROMAX 250 MG TAB 8245282 AZITHROMYCIN Inactive AUGMENTIN 875-125 MG TAB 1 po BID x 10 days AUGMENTIN 875- 125 MG TAB 158305 AMOXICILLIN-POT CLAVULANATE Inactive ZITHROMAX Z-REYNA 250 MG TABS 2 today, then 1 daily for 4 days 201 08/07/20 ZITHROMAX Z-REYNA 250 MG TABS 8417575 AZITHROMYCIN Inac tive ZITHROMAX 250 MG TAB 2 po today, then 1 po q days 2-5 ZITHROMAX 250 MG TAB 1540540 AZITHROMYCIN Inactive ZITHROMAX Z-REYNA 250 MG TABS 2 today, then 1 daily for 4 days 201 08/30/03 ZITHROMAX Z-REYNA 250 MG TABS 0266913 AZITHROMYCIN Inac tive CEFDINIR 300 MG CAPS 1 po BID x 10 days C EFDINIR 300 MG CAPS 20020704 CEFDINIR Inactive ZITHROMAX 250 MG TAB 2 po today, then 1 po q days 2-5 ZITHROMAX 250 MG TAB 3765940 AZITHROMYCIN Inactive LEVAQUIN 500 MG TAB 1 tablet by mouth daily LEVAQUIN 500 MG TAB 183800 LEVOFLOXACIN Inactive SINGULAIR 10 MG TABS 1 po qday for allergies 2 SINGULAIR 10 MG TABS 20010504 MONTELUKAST SODIUM Inactive AMOXICILLIN 500 MG CAPS 2 po BID x 10 days AMOXICILLIN 500 MG CAPS 451630 AMOXICILLIN Inactive PREDNISONE 20 MG TAB 2 tabs daily for 3 days, 1 t ab daily for 3 days, 1/2 tab daily for 2 days PREDNISONE 20 MG TAB 645005 PREDNISON E Inactive ZITHROMAX Z-REYNA 250 MG TABS 2 today, then 1 daily for 4 days 201 09/29/14 ZITHROMAX Z-REYNA 250 MG TABS 7730955 AZITHROMYCIN Inac tive PREDNISONE 20 MG TAB 2 tabs daily for 3 days, 1 t ab daily for 3 days, 1/2 tab daily for 2 days PREDNISONE 20 MG TAB 591346 PREDNISON E Inactive ZITHROMAX 250 MG TAB 2 po today, then 1 po q days 2-5 ZITHROMAX 250 MG TAB 4363961 AZITHROMYCIN Inactive Vital Signs Date Name Value [...] Negative Encounters Code Encounter Date Provider Facility CPT-69800 Level 3 Est. Patient 12:17:50 CDT Hugo Restrepo MD [facility] CPT-39523 Level 3 Est. Patient 13:42:38 CDT [facility] CPT-99679 Level 3 Est. Patient 13:23:51 CDT Diya cobian [facility] CPT-52279 Level 3 Est. Patient 14:22:19 OPERATIONS MANAGER STATION Diya cobian [facility] CPT-81417 Level 3 Est. Patient 10:11:46 CDT Carlton rich MD [facility] CPT-30984 Level 3 Est. Patient 17:29:43 CDT [facility] CPT-61393 Level 3 Est. [facility] Level 4 Est. Patient 14:36:51 CDT Carlton rich MD [facility]-77333 Level 3 Est. Patient 18:16:00 OPERATIONS MANAGER STATION Blaine HERNANDEZ [facility] CPT-54764 Level 3 Est. Patient 09:45:49 OPERATIONS MANAGER STATION Carlton rich MD [facility] CPT-57847 Level 3 Est. Patient 13:19:20 CDT Carlton rich MD [facility] CPT-43761 Level 3 Est. Patient 13:06:43 CDT Ridge tam DO [facility] CPT-83336 Level 3 Est. Patient 10:03:07 CDT Perez Mora MD [facility] CPT-00512 Level 3 Est. Patient 19:50:35 OPERATIONS MANAGER STATION Carlton rich MD [facility]-25277 Level 4 Est. Patient 18:05:01 OPERATIONS MANAGER STATION Carlton rich MD [facility]-04731 Level 3 Est. Patient 10:45:55 OPERATIONS MANAGER STATION Hugo Restrepo MD [facility]-72173 Level 3 Est. Patient 14:12:49 CDT Griffin HERNANDEZ [facility]-50970 Level 3 Est. Patient 17:37:24 CDT Carlton rich MD [facility]-72938 Level 3 Est. Patient 16:51:54 CDT Carlton rich MD [facility]-45527 Level 3 Est. Patient 12:18:11 CDT Hugo Restrepo MD [facility]-12849 Level 3 Est. Patient 11:30:25 CDT Marcy crisostomo MD PhD [facility]-07571 Level 3 Est. Patient 12:00:47 OPERATIONS MANAGER STATION Carlton rich MD [facility]-66165 Level 3 Est. Patient 16:31:06 OPERATIONS MANAGER STATION Carlton rich MD [facility]-12331 Level 3 Est. Patient 16:23:24 OPERATIONS MANAGER STATION Ridge tam DO [facility]-62507 Level 3 Est. Patient 12:34:12 CDT Carlton rich MD [facility]-43511 Level 2 Est. Patient 15:43:33 CDT Robi armstrong MD [facility]-03545 Level 4 Est. Patient 14:04:44 CDT Carlton rich MD [facility]-63902 Level 3 Est. Patient 05:47:59 CDT Ridge W L ee DO [facility] CPT-84819 Level 3 Est. Patient 13:12:53 OPERATIONS MANAGER STATION Carlton rich MD [facility] CPT-79524 Level 3 Est. Patient 14:26:53 CDT Hugo [...] CPT-J1100 Decadron 6mg (Dexamethasone) 14:32:13 CDT 2 CPT-21472 Hip bilat min 2V w AP pelvis 13:16:20 CDT 2 CPT-78232 Pelvis only 13:07:33 CDT CPT-95486 Spec Collection and Handling Fee 11:25:12 C DT CPT-68717 Fluzone Quadrivalent Intramuscular Suspe nsion 0.5 ML 14:31:55 CDT CPT-26094 Abx/Therapy Injection 13:28:47 OPERATIONS MANAGER STATION CPT-J2930 Solu Medrol 125 mg (Methyl Prednisolone Sodium Succinate) 12:00:47 OPERATIONS MANAGER STATION CPT-83452 Venipuncture Draw Fee 11:33:31 CDT CPT-84501 EKG Trac and Interp 11:21:09 CDT CPT-12478 Chest 2V Frontal and Lat 11:21:09 CDT 12/15 CPT-02188 Venipuncture Draw Fee 08:02:34 CDT CPT-67006 Chest 2V Frontal and Lat 05:47:59 CDT 06/05
--- OUTSIDE RECORDS SUMMARY | 2019-10-08 08:40 | XMS REPORT | Clinical Summary ---
Author Author Caitlin, Juliana Martinez Organization [facility] Address Unknown Phone Unavailable [...] sites Sinusitis 473.9 Active Diya De Guzman BOLT THREADER Unspecified sinusitis (chronic) Bronchitis-Acute 466.0 Active Carlton Hu MD Acute bronchitis URI - acute 465.9 Active Elise Whitmore BOLT THREADER Acute upper respiratory infections of unspecified site Pharyngitis acute 462 Active Elise Whitmore A PRN Acute pharyngitis Rhinitis, acute 460 Active Elise Whitmore APR N Acute nasopharyngitis [common cold] Sinusitis 473.9 Active Diya De Guzman BOLT THREADER Unspecified sinusitis (chronic) BRONCHITIS ICD-490 Inactive Hugo [...] bid with ri nse after MOMETASONE FUROATE [id number] Active Elise Whitmore APRN Active FLUTICASONE PROPIONATE 50 MCG/ACT SUSP 2 sprays each n ostril daily until bottle is empty FLUTICASONE PROPIONATE 29753891270 Active Lyndsay Whitmore APRN Active ZITHROMAX Z-REYNA 250 MG TABS 2 today, then 1 daily for 4 days 201 09/29/14 AZITHROMYCIN 50975405181 No Longer Active Elise Whitmore APRN Active TUSSIONEX PENNKINETIC ER 10-8 MG/5ML LQCR 5ml po q12hr PRN Cough HYDROCOD POLST-CHLORPHEN POLST 03036618585 No Longer Active Elise Whitmore APRN Active MUCINEX D 60-600 MG [id number] 1 tab po q am PSEUDOEPHEDRINE-GUAIFENESIN 25736175372 Active Jillina Frazell BOLT THREADER Active PREDNISONE 20 MG TAB 2 tabs daily for 3 days, 1 t ab daily for 3 days, 1/2 tab daily for 2 days PREDNISONE 52870407661 No Longer Active Jillina Frazell BOLT THREADER Active AMOXICILLIN 500 MG CAPS 2 po BID x 10 days AMOX ICILLIN 89501789311 No Longer Active Jillina Frazell BOLT THREADER Active SINGULAIR 10 MG TABS 1 po qday for allergies 2 MONTELUKAST SODIUM 43679908576 No Longer Active Carlton Hu MD Acti ve LEVAQUIN 500 MG TAB 1 tablet by mouth daily LEV OFLOXACIN 37453575803 No Longer Active Carlton Hu MD Active FLUTICASONE PROPIONATE 50 MCG/ACT SUSP 2 sprays each n ostril daily for 2 weeks, then 1 spray each nostril daily. FLUTICASONE PRO PIONATE 78861019065 Active Elise Whitmore APRN Active ZITHROMAX 250 MG TAB 2 po today, then 1 po q days 2-5 AZITHROMYCIN 67163505634 No Longer Active Elise Whitmore APRN Acti ve XANAX 0.5 MG TABS one tablet by mouth daily prn anxiety ALPRAZOLAM 54677451712 Active Elise Whitmore APRN Active CYMBALTA 30 MG CPEP 1 cap by mouth daily for depression DULOXETINE HCL 15669095227 Active Carlton Hu MD Active CEFDINIR 300 MG CAPS 1 po BID x 10 days CEFDINI R 31228159339 No Longer Active Carlton Hu MD Active ZOCOR 40 MG TAB 1 tab by mouth daily SIMVASTATI N 42534213032 No Longer Active Carlton Hu MD Active CYCLOBENZAPRINE HCL 10 MG TABS 1 tablet by mouth BID prn had cherelle n CYCLOBENZAPRINE HCL 64910206244 No Longer Active Carlton Hu MD Active LEVOFLOXACIN 500 MG ORAL TABS 1 tab PO daily x 10 days LEVOFLOXACIN 43408716046 No Longer Active Carlton Hu MD Acti ve PREDNISONE 20 MG ORAL TABS 3 tab PO qd x 2d, 2 tab PO qd x 2d, 1 tab PO qd x 2d, 1/2 tab PO qd x 2d PREDNISONE 34842512716 No Longer Active Carlton Hu MD Active TUSSIONEX PENNKINETIC ER 10-8 MG/5ML ORAL LQCR 5 mL PO q 12 hrs PRN cough HYDROCOD POLST-CHLORPHEN POLST 97809714604 Active Elise Whitmore APRN Active FLUTICASONE PROPIONATE 50 MCG/ACT SUSP 1 to 2 sprays each no stril daily FLUTICASONE PROPIONATE 34843219551 No Longer Active T homas W Cloven PA Active CHERATUSSIN AC 100-10 MG/5ML SYRP 1 tsp by mouth every 4 hours as needed for cough GUAIFENESIN-CODEINE 80825221318 No Longer Activ e Blaine HERNANDEZ Active PROMETHAZINE-CODEINE 6.25-10 MG/5ML SYRP 1 tsp by mout h every 6 hours if needed for cough PROMETHAZINE-CODEINE 69551586826 No Long er Active Blaine HERNANDEZ Active CHERATUSSIN AC 100-10 MG/5ML SYRP 1 tsp by mouth every 4 hours as needed for cough GUAIFENESIN-CODEINE 43281395087 No Longer Activ e Blaine HERNANDEZ Active ZITHROMAX Z-REYNA 250 MG TABS 2 today, then 1 daily for 4 days 201 08/30/03 AZITHROMYCIN 63403616523 No Longer Active Columba Raida Act nael ZITHROMAX 250 MG TAB 2 po today, then 1 po q days 2-5 AZITHROMYCIN 28441582175 No Longer Active Carlton Hu MD Acti ve ZITHROMAX Z-REYNA 250 MG TABS 2 today, then 1 daily for 4 days 201 08/07/20 AZITHROMYCIN 82931741326 No Longer Active Columba Raida Act nael AUGMENTIN 875-125 MG TAB 1 po BID x 10 days AMOXICILLIN- POT CLAVULANATE 25449808697 No Longer Active Diya De Guzman APRN Active ZITHROMAX 250 MG TAB 2 po today, then 1 po q days 2-5 AZITHROMYCIN 25395586150 No Longer Active Carlton Hu MD Acti ve TRAMADOL HCL 50 MG TABS 1 po tid with ES Tylenol TRAMADOL HCL 79931417741 Active Carlton Hu MD Active PREMARIN 0.625 MG TABS TAKE 1 TAB BY MOUTH DAILY 07/25 ESTROGENS CONJUGATED 73241888929 No Longer Active Ridge Bess DO Active CYMBALTA 30 MG CPEP 1 cap by mouth daily DULOXE SNEHA HCL 88755724725 No Longer Active Ridge Bess DO Active AMOXICILLIN 500 MG CAP 1 tab by mouth 3 times daily x 10 days 20 14/04/28 AMOXICILLIN 06305448277 No Longer Active Carlton Hu MD Active AMOXICILLIN 500 MG CAP 1 tab by mouth 3 times daily x 10 days 20 13/03/08 AMOXICILLIN 23054160962 No Longer Active Carlton Hu MD Active PROMETHAZINE-CODEINE 6.25-10 MG/5ML SYRP 1 tsp by mouth ever y 8 hours prn cough PROMETHAZINE-CODEINE 13394101265 No Longer Active Robert Hu MD Active MEDROL (REYNA) 4 MG TABS 6 pills x 1 day, then 5 pill s x 1 day then 4 pills x 1 day, then 3 pills x 1 day, then 2 pills x 1 day, then 1 pill x 1 day, then stop METHYLPREDNISOLONE 69116895107 No Longer Active Parris Mora MD Active AZITHROMYCIN 250 MG TABS 2 po qd x 1 day, then 1 po qd x 4 days AZITHROMYCIN 75130240939 No Longer Active Perez Mora MD Active SYMBICORT 160-4.5 MCG/ACT AERO 2 puffs bid with rinse after 2011 BUDESONIDE-FORMOTEROL FUMARATE 27631455869 No Longer Active Perez Mora MD Active LYRICA 75 MG CAPS TAKE 1 CAPSULE BY MOUTH TWICE DAILY 2013 PREGABALIN 60950527412 No Longer Active Carlton Hu MD Active LYRICA 100 MG CAPS Take 1 tab po BID for fibromyalgia PREGABALIN 14118059985 Active Carlton Hu MD Active TOPAMAX 25 MG TABS 1 qHS x 1 week, then 1 BID x 1 week, then 1 qAM and 2 qHS x 1 week, then 2 BID (migraine prevention) TOPIRAMAT E 56085585539 No Longer Active Jerica FUENTES Active TOPAMAX 50 MG TABS take 1 tab po BID for migraines. 12/07/10 TOPIRAMATE 04871951418 No Longer Active Jerica Osei RMA Ac tive TOPAMAX 100 MG TABS Take 1 tablet po bid TOPIRAMATE 4999 2841708 Active Elise Whitmore BOLT THREADER Active TRIAMCINOLONE ACETONIDE 0.1 % CREA apply three times daily prn r beatrice TRIAMCINOLONE ACETONIDE 96867361526 No Longer Active Carlton Hu MD Active PAXIL 40 MG TAB take 1 tab po qday for depression PAROXETINE HCL 43251167513 Active Elise Whitmore APRN Active CHERATUSSIN AC 100-10 MG/5ML SYRP 5ml po q6hr PRN Cough GUAIFENESIN-CODEINE 75598396224 No Longer Active Carlton Hu MD Active MEDROL (REYNA) 4 MG TABS 6 tabs on day 1, 5 tabs on d ay 2, 4 tabs on day 3, 3 tabs on day 4, 2 tabs on day 5, 1 tab on day 6 METHYLPREDNISOLONE 75880602308 No Longer Active Perez Mora MD Active AZITHROMYCIN 250 MG TABS 2 po qd x 1 day, then 1 po qd x 4 days AZITHROMYCIN 62531913574 No Longer Active Perez Mora MD Active PROPRANOLOL HCL 60 MG TABS 1 PO Q D PROPRANOL OL HCL 62508088442 No Longer Active Perez Mora MD Active CHERATUSSIN AC 100-10 MG/5ML SYRP take one tsp po Q 6hours prn c ough GUAIFENESIN-CODEINE 66600051366 No Longer Active Perez Means Active AUGMENTIN 875-125 MG TAB 1 tab by mouth twice daily with food 20 12/03/31 AMOXICILLIN-POT CLAVULANATE 47458454218 No Longer Active Chanel Mora MD Active CHERATUSSIN AC 100-10 MG/5ML SYRP 1 tsp by mouth every 4 hours as needed for cough GUAIFENESIN-CODEINE 13155056649 No Longer Activ e Hugo Restrepo MD Active ACETAMINOPHEN-CODEINE #3 300-30 MG TABS 1 PO Q 4-6 HRS PRN PAIN ACETAMINOPHEN-CODEINE 25963172867 No Longer Active Hugo Restrepo MD Active LEVAQUIN 500 MG TABS take one po QD LEVOFLOXACI N 13301570112 No Longer Active Griffin HERNANDEZ Active PREDNISONE 20 MG TAB Take 3 tabs daily for 3 days , 2 tabs daily for 3 days, 1 tab daily for 3 days, 1/2 tab daily for 3 days P REDNISONE 24671075660 No Longer Active Carlton Hu MD Active AVELOX 400 MG TABS 1 tab by mouth daily MOXIFLO XACIN HCL 73703670037 No Longer Active Carlton Hu MD Active CHERATUSSIN AC 100-10 MG/5ML SYRP 1 tsp by mouth every 4 hours as needed for cough GUAIFENESIN-CODEINE 63099257012 No Longer Activ e Hugo Restrepo MD Active AVELOX 400 MG TABS 1 tab by mouth daily MOXIFLO XACIN HCL 43882620230 No Longer Active Marcy De La Rosa MD PhD Active TERBINAFINE HCL 250 MG TABS 1 qDay TERBINAF INE HCL 61716771982 No Longer Active Marcy De La Rosa MD PhD Active CHERATUSSIN AC 100-10 MG/5ML SYRP 1 tsp by mouth every 4 hours as needed for cough GUAIFENESIN-CODEINE 73995117326 No Longer Activ e Marcy De La Rosa MD PhD Active AVELOX 400 MG TABS 1 tab by mouth daily MOXIFLO XACIN HCL 02466040033 No Longer Active Marcy De La Rosa MD PhD Active HYDROCODONE-ACETAMINOPHEN 5-325 MG TABS 1 po q 6hr PRN cough 201 05/09/16 HYDROCODONE-ACETAMINOPHEN 12584442985 No Longer Active Marcy De La Rosa MD PhD Active PREDNISONE 20 MG TAB 2 tabs daily for 3 days, 1 t ab daily for 3 days, 1/2 tab daily for 2 days PREDNISONE 99146327837 No Longer Active Carlton Hu MD Active CEFDINIR 300 MG CAPS by mouth twice a day CEFDI ODILIA 16666678912 No Longer Active Carlton Hu MD Active HYDROCHLOROTHIAZIDE 25 MG TABS 1 TAB PO DAILY H YDROCHLOROTHIAZIDE 73401874632 Active Carlton Hu MD Active ACETAMINOPHEN-CODEINE #3 300-30 MG TABS 1 tablet po q 4-6hrs prn pain ACETAMINOPHEN-CODEINE 29037300130 No Longer Active Ridge Bess DO Active ZITHROMAX 250 MG TAB 2 po today, then 1 po q days 2-5 AZITHROMYCIN 62545058248 No Longer Active Carlton Hu MD Acti ve CHERATUSSIN AC 100-10 MG/5ML SYRP take 1 tsp po q4-6 hours prn c ough GUAIFENESIN-CODEINE 19737357825 No Longer Active Carlton Hu MD Active ACETAMINOPHEN-CODEINE #3 300-30 MG TABS 1 PO Q 4-6 HR PRN PAIN 2 ACETAMINOPHEN-CODEINE 87662168082 No Longer Active Carlton rich MD Active LORTAB 7.5-500 MG/15ML ELIX 7.5 ml po q 4 hour prn cough HYDROCODONE-ACETAMINOPHEN 54923185625 No Longer Active Carlton Hu MD Active PREDNISONE 20 MG TAB 1 po bid 3 days, then 1 po q day 3 days 201 05/03/07 PREDNISONE 75272489915 No Longer Active Carlton uH MD Active ELMIRON 100 MG CAPS 2 tablets in the am and 1 tablet at hs PENTOSAN POLYSULFATE SODIUM 42974264396 Active Carlton Hu MD Ac tive CEFDINIR 300 MG CAPS by mouth twice a day CEFDI ODILIA 66277012470 No Longer Active Carlton Hu MD Active CEFDINIR 300 MG CAPS by mouth twice a day CEFDI ODILIA 64767194346 No Longer Active Carlton Hu MD Active CEFDINIR 300 MG CAPS by mouth twice a day CEFDI ODILIA 59513460995 No Longer Active Carlton Hu MD Active TESSALON PERLES 100 MG CAP 1 tablet by mouth 3 times daily a s needed for cough BENZONATATE 61483203402 No Longer Active Carlton bustamante MD Active CEFDINIR 300 MG CAPS by mouth twice a day CEFDI ODILIA 06230196816 No Longer Active Carlton Hu MD Active ZITHROMAX Z-REYNA 250 MG TABS 2 today, then 1 daily for 4 days 201 04/09/17 AZITHROMYCIN 34596931107 No Longer Active Hugo Restrepo MD Active TESSALON PERLES 100 MG CAP 1 tablet by mouth 3 times daily a s needed for cough TESSALON PERLES 100 MG CAP 648149 BENZONATATE I nactive PREDNISONE 20 MG TAB 1 po bid 3 days, then 1 po q day 3 days 201 05/03/07 PREDNISONE 20 MG TAB 620374 PREDNISONE Inactive LORTAB 7.5-500 MG/15ML ELIX 7.5 ml po q 4 hour prn cough LORTAB 7.5-500 MG/15ML ELIX HYDROCODONE-ACETAMINOPHEN Inacti ve ACETAMINOPHEN-CODEINE #3 300-30 MG TABS 1 PO Q 4-6 HR PRN PAIN 2 ACETAMINOPHEN-CODEINE #3 300-30 MG TABS 283922 ACETAMIN OPHEN-CODEINE Inactive CHERATUSSIN AC 100-10 MG/5ML SYRP take 1 tsp po q4-6 hours prn c ough CHERATUSSIN AC 100-10 MG/5ML SYRP 803035 GUAIFENESIN-CO DEINE Inactive ACETAMINOPHEN-CODEINE #3 300-30 MG TABS 1 tablet po q 4-6hrs prn pain ACETAMINOPHEN-CODEINE #3 300-30 MG TABS 125607 ACETAMIN OPHEN-CODEINE Inactive HYDROCODONE-ACETAMINOPHEN 5-325 MG TABS 1 po q 6hr PRN cough 201 05/09/16 HYDROCODONE-ACETAMINOPHEN 5-325 MG TABS 504965 HYDROCODONE-ACETAMINOPHEN Inactive AVELOX 400 MG TABS 1 tab by mouth daily A VELOX 400 MG TABS 352805 MOXIFLOXACIN HCL Inactive CHERATUSSIN AC 100-10 MG/5ML SYRP 1 tsp by mouth every 4 hours as needed for cough CHERATUSSIN AC 100-10 MG/5ML SYRP 251361 GUAIFENESIN-CODEINE Inactive TERBINAFINE HCL 250 MG TABS 1 qDay TERBINAFINE HCL 250 MG TABS 918763 TERBINAFINE HCL Inactive CHERATUSSIN AC 100-10 MG/5ML SYRP 1 tsp by mouth every 4 hours as needed for cough CHERATUSSIN AC 100-10 MG/5ML SYRP 095787 GUAIFENESIN-CODEINE Inactive ACETAMINOPHEN-CODEINE #3 300-30 MG TABS 1 PO Q 4-6 HRS PRN PAIN ACETAMINOPHEN-CODEINE #3 300-30 MG TABS 534049 ACETAMINOPHEN-CODEIN E Inactive CHERATUSSIN AC 100-10 MG/5ML SYRP 1 tsp by mouth every 4 hours as needed for cough CHERATUSSIN AC 100-10 MG/5ML SYRP 857621 GUAIFENESIN-CODEINE Inactive AUGMENTIN 875-125 MG TAB 1 tab by mouth twice daily with food 20 12/03/31 AUGMENTIN 875-125 MG TAB 829015 AMOXICILLIN-POT CLAVULA EFE Inactive CHERATUSSIN AC 100-10 MG/5ML SYRP take one tsp po Q 6hours prn c ough CHERATUSSIN AC 100-10 MG/5ML SYRP 449852 GUAIFENESIN-CO DEINE Inactive PROPRANOLOL HCL 60 MG TABS 1 PO Q D P ROPRANOLOL HCL 60 MG TABS 416385 PROPRANOLOL HCL Inactive TOPAMAX 50 MG TABS take 1 tab po BID for migraines. 12/07/10 TOPAMAX 50 MG TABS 545255 TOPIRAMATE Inactive TOPAMAX 25 MG TABS 1 qHS x 1 week, then 1 BID x 1 week, then 1 qAM and 2 qHS x 1 week, then 2 BID (migraine prevention) TOPAMAX 2 5 MG TABS 109860 TOPIRAMATE Inactive LYRICA 75 MG CAPS TAKE 1 CAPSULE BY MOUTH TWICE DAILY LYRICA 75 MG CAPS PREGABALIN Inactive SYMBICORT 160-4.5 MCG/ACT AERO 2 puffs bid with rinse after 2011 SYMBICORT 160-4.5 MCG/ACT AERO BUDESONIDE-FORMOT SÁNCHEZ FUMARATE Inactive PROMETHAZINE-CODEINE 6.25-10 MG/5ML SYRP 1 tsp by mouth ever y 8 hours prn cough PROMETHAZINE-CODEINE 6.25-10 MG/5ML SYRP 270920 PROMETHAZINE-CODEINE Inactive CYMBALTA 30 MG CPEP 1 cap by mouth daily CYMBALTA 30 MG CPEP 079631 DULOXETINE HCL Inactive PREMARIN 0.625 MG TABS TAKE 1 TAB BY MOUTH DAILY 07/25 PREMARIN 0.625 MG TABS ESTROGENS CONJUGATED Inactive CHERATUSSIN AC 100-10 MG/5ML SYRP 1 tsp by mouth every 4 hours as needed for cough CHERATUSSIN AC 100-10 MG/5ML SYRP 245372 GUAIFENESIN-CODEINE Inactive PROMETHAZINE-CODEINE 6.25-10 MG/5ML SYRP 1 tsp by mout h every 6 hours if needed for cough PROMETHAZINE-CODEINE 6.25-10 MG/5ML SYRP 710191 PROMETHAZINE-CODEINE Inactive CHERATUSSIN AC 100-10 MG/5ML SYRP 1 tsp by mouth every 4 hours as needed for cough CHERATUSSIN AC 100-10 MG/5ML SYRP 407856 GUAIFENESIN-CODEINE Inactive FLUTICASONE PROPIONATE 50 MCG/ACT SUSP 1 to 2 sprays each no stril daily FLUTICASONE PROPIONATE 50 MCG/ACT SUSP 9150117 FLUTICASONE PROPIONATE Inactive PREDNISONE 20 MG ORAL TABS 3 tab PO qd x 2d, 2 tab PO qd x 2d, 1 tab PO qd x 2d, 1/2 tab PO qd x 2d PREDNISONE 20 MG ORAL TABS 402081 PREDNISONE Inactive LEVOFLOXACIN 500 MG ORAL TABS 1 tab PO daily x 10 days LEVOFLOXACIN 500 MG ORAL TABS 538128 LEVOFLOXACIN Inactive CYCLOBENZAPRINE HCL 10 MG TABS 1 tablet by mouth BID prn had cherelle n CYCLOBENZAPRINE HCL 10 MG TABS 342810 CYCLOBENZAPRINE H CL Inactive ZOCOR 40 MG TAB 1 tab by mouth daily ZOCOR 40 M G TAB 246506 SIMVASTATIN Inactive TUSSIONEX PENNKINETIC ER 10-8 MG/5ML LQCR 5ml po q12hr PRN Cough TUSSIONEX PENNKINETIC ER 10-8 MG/5ML LQCR HYDROCOD POLST-CHLORPHEN POLST Inactive ZITHROMAX Z-REYNA 250 MG TABS 2 today, then 1 daily for 4 days 201 04/09/17 ZITHROMAX Z-REYNA 250 MG TABS 9095869 AZITHROMYCIN Inac tive CEFDINIR 300 MG CAPS [...] q days 2-5 ZITHROMAX 250 MG TAB 5975841 AZITHROMYCIN Inactive CEFDINIR 300 MG CAPS by mouth twice a day CEFDINIR 300 MG CAPS 20020704 CEFDINIR Inactive PREDNISONE 20 MG TAB 2 tabs daily for 3 days, 1 t ab daily for 3 days, 1/2 tab daily for 2 days PREDNISONE 20 MG TAB 654110 PREDNISON E Inactive AVELOX 400 MG TABS 1 tab by mouth daily A VELOX 400 MG TABS 197677 MOXIFLOXACIN HCL Inactive AVELOX 400 MG TABS 1 tab by mouth daily A VELOX 400 MG TABS 191068 MOXIFLOXACIN HCL Inactive PREDNISONE 20 MG TAB Take 3 tabs daily for 3 days , 2 tabs daily for 3 days, 1 tab daily for 3 days, 1/2 tab daily for 3 days PREDNISONE 20 MG TAB 420507 PREDNISONE Inactive LEVAQUIN 500 MG TABS take one po QD LEVAQUIN 50 0 MG TABS 551133 LEVOFLOXACIN Inactive AZITHROMYCIN 250 MG TABS 2 po qd x 1 day, then 1 po qd x 4 days AZITHROMYCIN 250 MG TABS 2229902 AZITHROMYCIN Inactiv e MEDROL (REYNA) 4 MG TABS 6 tabs on day 1, 5 tabs on d ay 2, 4 tabs on day 3, 3 tabs on day 4, 2 tabs on day 5, 1 tab on day 6 MEDROL (REYNA) 4 MG TABS 575560 METHYLPREDNISOLONE Inactive CHERATUSSIN AC 100-10 MG/5ML SYRP 5ml po q6hr PRN Cough CHERATUSSIN AC 100-10 MG/5ML SYRP 575559 GUAIFENESIN-CODEINE Inacti ve TRIAMCINOLONE ACETONIDE 0.1 % CREA apply three times daily prn r beatrice TRIAMCINOLONE ACETONIDE 0.1 % [facility] 4822303 TRIAMCINOLONE ACETONIDE Inactive AZITHROMYCIN 250 MG TABS 2 po qd x 1 day, then 1 po qd x 4 days AZITHROMYCIN 250 MG TABS 7277152 AZITHROMYCIN Inactiv e MEDROL (REYNA) 4 MG TABS 6 pills x 1 day, then 5 pill s x 1 day then 4 pills x 1 day, then 3 pills x 1 day, then 2 pills x 1 day, then 1 pill x 1 day, then stop MEDROL (REYNA) 4 MG TABS 491121 METHYLPREDNISOLONE Inactive AMOXICILLIN 500 MG CAP 1 tab by mouth 3 times daily x 10 days 20 13/03/08 AMOXICILLIN 500 MG CAP 109639 AMOXICILLIN Inactive AMOXICILLIN 500 MG CAP 1 tab by mouth 3 times daily x 10 days 20 14/04/28 AMOXICILLIN 500 MG CAP 262804 AMOXICILLIN Inactive ZITHROMAX 250 MG TAB 2 po today, then 1 po q days 2-5 ZITHROMAX 250 MG TAB 2502552 AZITHROMYCIN Inactive AUGMENTIN 875-125 MG TAB 1 po BID x 10 days AUGMENTIN 875- 125 MG TAB 931121 AMOXICILLIN-POT CLAVULANATE Inactive ZITHROMAX Z-REYNA 250 MG TABS 2 today, then 1 daily for 4 days 201 08/07/20 ZITHROMAX Z-REYNA 250 MG TABS 0527370 AZITHROMYCIN Inac tive ZITHROMAX 250 MG TAB 2 po today, then 1 po q days 2-5 ZITHROMAX 250 MG TAB 3809510 AZITHROMYCIN Inactive ZITHROMAX Z-REYNA 250 MG TABS 2 today, then 1 daily for 4 days 201 08/30/03 ZITHROMAX Z-REYNA 250 MG TABS 1681589 AZITHROMYCIN Inac tive CEFDINIR 300 MG CAPS 1 po BID x 10 days C EFDINIR 300 MG CAPS 512870 CEFDINIR Inactive ZITHROMAX 250 MG TAB 2 po today, then 1 po q days 2-5 ZITHROMAX 250 MG TAB 7168727 AZITHROMYCIN Inactive LEVAQUIN 500 MG TAB 1 tablet by mouth daily LEVAQUIN 500 MG TAB 046539 LEVOFLOXACIN Inactive SINGULAIR 10 MG TABS 1 po qday for allergies 2 SINGULAIR 10 MG TABS 20010504 MONTELUKAST SODIUM Inactive AMOXICILLIN 500 MG CAPS 2 po BID x 10 days AMOXICILLIN 500 MG CAPS 720129 AMOXICILLIN Inactive PREDNISONE 20 MG TAB 2 tabs daily for 3 days, 1 t ab daily for 3 days, 1/2 tab daily for 2 days PREDNISONE 20 MG TAB 906462 PREDNISON E Inactive ZITHROMAX Z-REYNA 250 MG TABS 2 today, then 1 daily for 4 days 201 09/29/14 ZITHROMAX Z-REYAN 250 MG TABS 5108993 AZITHROMYCIN Inac tive Vital Signs Date Name [...] Measured Encounters Code Encounter Date Provider Facility CPT-14491 Level 3 Est. Patient 14:22:19 PILOT Diya cobian BOLT THREADER [facility] CPT-02434 Level 3 Est. Patient 10:11:46 CDT Carlton rich MD [facility] CPT-21700 Level 3 Est. Patient 17:29:43 CDT Italo B[employer]T [employer]READER [facility] CPT-57187 Level 3 Est. Patient 11:58:06 CDT Italo B[employer]T [employer]READER [facility] CPT-24332 Level 4 Est. Patient 14:36:51 CDT Carlton rich MD [facility] CPT-12701 Level 3 Est. Patient 18:16:00 PILOT Blaine HERNANDEZ [facility] CPT-39725 Level 3 Est. Patient 09:45:49 PILOT Carlton rich MD [facility] CPT-02938 Level 3 Est. Patient 13:19:20 CDT Carlton rich MD [facility] CPT-41396 Level 3 Est. Patient 13:06:43 CDT Ridge tam DO [facility] CPT-00443 Level 3 Est. Patient 10:03:07 CDT Perez Mora MD [facility] CPT-63177 Level 3 Est. Patient 19:50:35 PILOT Carlton rich MD [facility] CPT-07502 Level 4 Est. Patient 18:05:01 PILOT Carlton rich MD [facility]-26996 Level 3 Est. Patient 10:45:55 PILOT Hugo Restrepo MD [facility]-20650 Level 3 Est. Patient 14:12:49 CDT Griffin HERNANDEZ [facility] CPT-52799 Level 3 Est. Patient 17:37:24 CDT Carlton rich MD [facility] CPT-38314 Level 3 Est. Patient 16:51:54 CDT Carlton rich MD [facility] CPT-62670 Level 3 Est. Patient 12:18:11 CDT Hugo Restrepo MD [facility] CPT-02310 Level 3 Est. Patient 11:30:25 CDT Marcy crisostomo MD PhD [facility] CPT-02506 Level 3 Est. Patient 12:00:47 PILOT Carlton rich MD [facility]-26208 Level 3 Est. Patient 16:31:06 PILOT Carlton rich MD [facility] CPT-94799 Level 3 Est. Patient 16:23:24 PILOT Ridge tam DO [facility]-46335 Level 3 Est. Patient 12:34:12 CDT Carlton rich MD [facility] CPT-44074 Level 2 Est. Patient 15:43:33 CDT Robi armstrong MD [facility] CPT-46357 Level 4 Est. Patient 14:04:44 CDT Carlton rich MD [facility] CPT-42026 Level 3 Est. Patient 05:47:59 CDT Ridge Jaun Celeste tam DO [facility] CPT-93727 Level 3 Est. Patient 13:12:53 PILOT Carlton rich MD [facility] CPT-48466 Level 3 Est. Patient 14:26:53 CDT Hugo Restrepo MD [facility] Procedures Code Procedure Name Date Entry Date Standard Desc ription CPT-J0696 Rocephin 1gm Inj Solr 14:32:13 CDT CPT-J1020 Depo Medrol 60 mg (Methyl Prednisolone A cetate) 14:32:13 CDT CPT-J1100 Decadron 6mg (Dexamethasone) 14:32:13 CDT 2 CPT-36772 Hip bilat min 2V w AP pelvis 13:16:20 CDT 2 CPT-68234 Pelvis only 13:07:33 CDT CPT-45685 Spec Collection and Handling Fee 11:25:12 C DT CPT-72829 Fluzone Quadrivalent Intramuscular Suspe nsion 0.5 ML 14:31:55 CDT CPT-10112 Abx/Therapy Injection 13:28:47 PILOT CPT-J2930 Solu Medrol 125 mg (Methyl Prednisolone Sodium Succinate) 12:00:47 PILOT CPT-78639 Venipuncture Draw Fee 11:33:31 CDT CPT-98364 EKG Trac and Interp 11:21:09 CDT CPT-86312 Chest 2V Frontal and Lat 11:21:09 CDT 12/15 CPT-13622 Venipuncture Draw Fee 08:02:34 CDT CPT-12873 Chest 2V Frontal and Lat 05:47:59 CDT 06/05
--- OUTSIDE RECORDS SUMMARY | 2019-10-08 08:41 | XMS REPORT | Clinical Summary ---
Author Author Caitlin, Juliana Martinez Organization [facility] Address Unknown Phone Unavailable Allergies, Adverse [...] sites Sinusitis 473.9 Active Diya De Guzman [employer] Unspecified sinusitis (chronic) Bronchitis-Acute 466.0 Active Carlton [...] tablet by mouth daily prn anxiety ALPRAZOLAM 72486535488 Active Carlton Hu MD Active CYMBALTA 30 MG CPEP 1 cap by mouth daily for depression DULOXETINE HCL 63243956393 Active Carlton Hu MD Active CEFDINIR 300 MG CAPS 1 po BID x 10 days CEFDINI R 47684968956 No Longer Active Carlton Hu MD Active ZOCOR 40 MG TAB 1 tab by mouth daily SIMVASTATI N 19319285785 No Longer Active Carlton Hu MD Active CYCLOBENZAPRINE HCL 10 MG TABS 1 tablet by mouth BID prn had cherelle n CYCLOBENZAPRINE HCL 18136825866 No Longer Active Carlton Hu MD Active LEVOFLOXACIN 500 MG ORAL TABS 1 tab PO daily x 10 days LEVOFLOXACIN 95753215097 No Longer Active Carlton Hu MD Acti ve PREDNISONE 20 MG ORAL TABS 3 tab PO qd x 2d, 2 tab PO qd x 2d, 1 tab PO qd x 2d, 1/2 tab PO qd x 2d PREDNISONE 22279123775 No Longer Active Carlton Hu MD Active TUSSIONEX PENNKINETIC ER 10-8 MG/5ML ORAL LQCR 5 mL PO q 12 hrs PRN cough HYDROCOD POLST-CHLORPHEN POLST 41877990426 Active aCrlton Hu MD Active FLUTICASONE PROPIONATE 50 MCG/ACT SUSP 1 to 2 sprays each no stril daily FLUTICASONE PROPIONATE 96798427441 No Longer Active T jaz HERNANDEZ Active CHERATUSSIN AC 100-10 MG/5ML SYRP 1 tsp by mouth every 4 hours as needed for cough GUAIFENESIN-CODEINE 38311043107 No Longer Activ e Blaine HERNANDEZ Active PROMETHAZINE-CODEINE 6.25-10 MG/5ML SYRP 1 tsp by mout h every 6 hours if needed for cough PROMETHAZINE-CODEINE 50899105851 No Long er Active Blaine HERNANDEZ Active CHERATUSSIN AC 100-10 MG/5ML SYRP 1 tsp by mouth every 4 hours as needed for cough GUAIFENESIN-CODEINE 94047535430 No Longer Activ Jorge Luis HERNANDEZ Active ZITHROMAX Z-REYNA 250 MG TABS 2 today, then 1 daily for 4 days 201 08/30/03 AZITHROMYCIN 19401214993 No Longer Active Columba Raida Act nael ZITHROMAX 250 MG TAB 2 po today, then 1 po q days 2-5 AZITHROMYCIN 81445299422 No Longer Active Carlton Hu MD Acti ve ZITHROMAX Z-REYNA 250 MG TABS 2 today, then 1 daily for 4 days 201 08/07/20 AZITHROMYCIN 52201222241 No Longer Active Columba Raida Act nael AUGMENTIN 875-125 MG TAB 1 po BID x 10 days AMOXICILLIN- POT CLAVULANATE 10049481915 No Longer Active Diya De Guzman APRN Active ZITHROMAX 250 MG TAB 2 po today, then 1 po q days 2-5 AZITHROMYCIN 60773040088 No Longer Active Carlton Hu MD Acti ve TRAMADOL HCL 50 MG TABS 1 po tid with ES Tylenol TRAMADOL HCL 71031148597 Active Carlton Hu MD Active PREMARIN 0.625 MG TABS TAKE 1 TAB BY MOUTH DAILY 07/25 ESTROGENS CONJUGATED 30728985730 No Longer Active Ridge Bess DO Active CYMBALTA 30 MG CPEP 1 cap by mouth daily DULOXE SNEHA HCL 06372507810 No Longer Active Ridge Bess DO Active AMOXICILLIN 500 MG CAP 1 tab by mouth 3 times daily x 10 days 20 14/04/28 AMOXICILLIN 91211428104 No Longer Active Carlton Hu MD Active AMOXICILLIN 500 MG CAP 1 tab by mouth 3 times daily x 10 days 20 13/03/08 AMOXICILLIN 72312506995 No Longer Active Carlton Hu MD Active PROMETHAZINE-CODEINE 6.25-10 MG/5ML SYRP 1 tsp by mouth ever y 8 hours prn cough PROMETHAZINE-CODEINE 72155884803 No Longer Active Robert Hu MD Active MEDROL (REYNA) 4 MG TABS 6 pills x 1 day, then 5 pill s x 1 day then 4 pills x 1 day, then 3 pills x 1 day, then 2 pills x 1 day, then 1 pill x 1 day, then stop METHYLPREDNISOLONE 24451075947 No Longer Active Parris Mora MD Active AZITHROMYCIN 250 MG TABS 2 po qd x 1 day, then 1 po qd x 4 days AZITHROMYCIN 59898867431 No Longer Active Perez Mora MD Active SYMBICORT 160-4.5 MCG/ACT AERO 2 puffs bid with rinse after 2011 BUDESONIDE-FORMOTEROL FUMARATE 39461264886 No Longer Active Perez Mora MD Active LYRICA 75 MG CAPS TAKE 1 CAPSULE BY MOUTH TWICE DAILY 2013 PREGABALIN 94454162965 No Longer Active Carlton Hu MD Active LYRICA 100 MG CAPS Take 1 tab po BID for fibromyalgia PREGABALIN 38452079440 Active Elise Whitmore APRN Active TOPAMAX 25 MG TABS 1 qHS x 1 week, then 1 BID x 1 week, then 1 qAM and 2 qHS x 1 week, then 2 BID (migraine prevention) TOPIRAMAT E 04655458680 No Longer Active Jerica Goema RMA Active TOPAMAX 50 MG TABS take 1 tab po BID for migraines. 12/07/10 TOPIRAMATE 74347728201 No Longer Active Jerica Goeringer RMA Ac tive TOPAMAX 100 MG TABS Take 1 tablet po bid TOPIRAMATE 4999 2361012 Active Carlton Hu MD Active TRIAMCINOLONE ACETONIDE 0.1 % CREA apply three times daily prn r beatrice TRIAMCINOLONE ACETONIDE 15153623112 No Longer Active Carlton Hu MD Active PAXIL 40 MG TAB take 1 tab po qday for depression PAROXETINE HCL 98803896197 Active Elise Whitmore APRN Active CHERATUSSIN AC 100-10 MG/5ML SYRP 5ml po q6hr PRN Cough GUAIFENESIN-CODEINE 99644861700 No Longer Active Carlton Hu MD Active MEDROL (REYNA) 4 MG TABS 6 tabs on day 1, 5 tabs on d ay 2, 4 tabs on day 3, 3 tabs on day 4, 2 tabs on day 5, 1 tab on day 6 METHYLPREDNISOLONE 06273694047 No Longer Active Perez Mora MD Active AZITHROMYCIN 250 MG TABS 2 po qd x 1 day, then 1 po qd x 4 days AZITHROMYCIN 03599338761 No Longer Active Perez Mora MD Active PROPRANOLOL HCL 60 MG TABS 1 PO Q D PROPRANOL OL HCL 76287998513 No Longer Active Perez Mora MD Active CHERATUSSIN AC 100-10 MG/5ML SYRP take one tsp po Q 6hours prn c ough GUAIFENESIN-CODEINE 78132091353 No Longer Active Perez Means Active AUGMENTIN 875-125 MG TAB 1 tab by mouth twice daily with food 20 12/03/31 AMOXICILLIN-POT CLAVULANATE 91106840509 No Longer Active Chanel Mora MD Active CHERATUSSIN AC 100-10 MG/5ML SYRP 1 tsp by mouth every 4 hours as needed for cough GUAIFENESIN-CODEINE 49224579803 No Longer Activ e Hugo Restrepo MD Active ACETAMINOPHEN-CODEINE #3 300-30 MG TABS 1 PO Q 4-6 HRS PRN PAIN ACETAMINOPHEN-CODEINE 73022802866 No Longer Active Hugo Restrepo MD Active LEVAQUIN 500 MG TABS take one po QD LEVOFLOXACI N 71580048350 No Longer Active Griffin HERNANDEZ Active PREDNISONE 20 MG TAB Take 3 tabs daily for 3 days , 2 tabs daily for 3 days, 1 tab daily for 3 days, 1/2 tab daily for 3 days P REDNISONE 63848066509 No Longer Active Carlton Hu MD Active AVELOX 400 MG TABS 1 tab by mouth daily MOXIFLO XACIN HCL 65674478157 No Longer Active Carlton Hu MD Active CHERATUSSIN AC 100-10 MG/5ML SYRP 1 tsp by mouth every 4 hours as needed for cough GUAIFENESIN-CODEINE 59519039942 No Longer Activ e Huog Restrepo MD Active AVELOX 400 MG TABS 1 tab by mouth daily MOXIFLO XACIN HCL 36477202615 No Longer Active Marcy De La Rosa MD PhD Active TERBINAFINE HCL 250 MG TABS 1 qDay TERBINAF INE HCL 35927800716 No Longer Active Marcy De La Rosa MD PhD Active CHERATUSSIN AC 100-10 MG/5ML SYRP 1 tsp by mouth every 4 hours as needed for cough GUAIFENESIN-CODEINE 40345360173 No Longer Activ e Marcy De La Rosa MD PhD Active AVELOX 400 MG TABS 1 tab by mouth daily MOXIFLO XACIN HCL 93318462683 No Longer Active Marcy De La Rosa MD PhD Active HYDROCODONE-ACETAMINOPHEN 5-325 MG TABS 1 po q 6hr PRN cough 201 05/09/16 HYDROCODONE-ACETAMINOPHEN 17520846118 No Longer Active Marcy De La Rosa MD PhD Active PREDNISONE 20 MG TAB 2 tabs daily for 3 days, 1 t ab daily for 3 days, 1/2 tab daily for 2 days PREDNISONE 62618973260 No Longer Active Carlton Hu MD Active CEFDINIR 300 MG CAPS by mouth twice a day CEFDI ODILIA 50066672210 No Longer Active Carlton Hu MD Active HYDROCHLOROTHIAZIDE 25 MG TABS 1 TAB PO DAILY H YDROCHLOROTHIAZIDE 89920004915 Active Carlton Hu MD Active ACETAMINOPHEN-CODEINE #3 300-30 MG TABS 1 tablet po q 4-6hrs prn pain ACETAMINOPHEN-CODEINE 68602775314 No Longer Active Ridge Bess DO Active ZITHROMAX 250 MG TAB 2 po today, then 1 po q days 2-5 AZITHROMYCIN 43948460787 No Longer Active Carlton Hu MD Acti ve CHERATUSSIN AC 100-10 MG/5ML SYRP take 1 tsp po q4-6 hours prn c ough GUAIFENESIN-CODEINE 46795971074 No Longer Active Carlton Hu MD Active ACETAMINOPHEN-CODEINE #3 300-30 MG TABS 1 PO Q 4-6 HR PRN PAIN 2 ACETAMINOPHEN-CODEINE 46619379872 No Longer Active Carlton rich MD Active LORTAB 7.5-500 MG/15ML ELIX 7.5 ml po q 4 hour prn cough HYDROCODONE-ACETAMINOPHEN 61931516382 No Longer Active Carlton Hu MD Active PREDNISONE 20 MG TAB 1 po bid 3 days, then 1 po q day 3 days 201 05/03/07 PREDNISONE 18688499855 No Longer Active Carlton Hu MD Active ELMIRON 100 MG CAPS 2 tablets in the am and 1 tablet at hs PENTOSAN POLYSULFATE SODIUM 10485213570 Active Carlton Hu MD Ac tive CEFDINIR 300 MG CAPS by mouth twice a day CEFDI ODILIA 30922608530 No Longer Active Carlton Hu MD Active CEFDINIR 300 MG CAPS by mouth twice a day CEFDI ODILAI 69630640610 No Longer Active Carlton Hu MD Active CEFDINIR 300 MG CAPS by mouth twice a day CEFDI ODILIA 92825632678 No Longer Active Carlton Hu MD Active TESSALON PERLES 100 MG CAP 1 tablet by mouth 3 times daily a s needed for cough BENZONATATE 30369489890 No Longer Active Carlton bustamante MD Active CEFDINIR 300 MG CAPS by mouth twice a day CEFDI ODILIA 35602082770 No Longer Active Carlton Hu MD Active ZITHROMAX Z-REYNA 250 MG TABS 2 today, then 1 daily for 4 days 201 04/09/17 AZITHROMYCIN 62280479324 No Longer Active Hugo Restrepo MD Active TESSALON PERLES 100 MG CAP 1 tablet by mouth 3 times daily a s needed for cough TESSALON PERLES 100 MG CAP 933633 BENZONATATE I nactive PREDNISONE 20 MG TAB 1 po bid 3 days, then 1 po q day 3 days 201 05/03/07 PREDNISONE 20 MG TAB 526592 PREDNISONE Inactive LORTAB 7.5-500 MG/15ML ELIX 7.5 ml po q 4 hour prn cough LORTAB 7.5-500 MG/15ML ELIX HYDROCODONE-ACETAMINOPHEN Inacti ve ACETAMINOPHEN-CODEINE #3 300-30 MG TABS 1 PO Q 4-6 HR PRN PAIN 2 ACETAMINOPHEN-CODEINE #3 300-30 MG TABS 004409 ACETAMIN OPHEN-CODEINE Inactive CHERATUSSIN AC 100-10 MG/5ML SYRP take 1 tsp po q4-6 hours prn c ough CHERATUSSIN AC 100-10 MG/5ML SYRP 001270 GUAIFENESIN-CO DEINE Inactive ACETAMINOPHEN-CODEINE #3 300-30 MG TABS 1 tablet po q 4-6hrs prn pain ACETAMINOPHEN-CODEINE #3 300-30 MG TABS 442178 ACETAMIN OPHEN-CODEINE Inactive HYDROCODONE-ACETAMINOPHEN 5-325 MG TABS 1 po q 6hr PRN cough 201 05/09/16 HYDROCODONE-ACETAMINOPHEN 5-325 MG TABS 186897 HYDROCODONE-ACETAMINOPHEN Inactive AVELOX 400 MG TABS 1 tab by mouth daily A VELOX 400 MG TABS 928927 MOXIFLOXACIN HCL Inactive CHERATUSSIN AC 100-10 MG/5ML SYRP 1 tsp by mouth every 4 hours as needed for cough CHERATUSSIN AC 100-10 MG/5ML SYRP 964422 GUAIFENESIN-CODEINE Inactive TERBINAFINE HCL 250 MG TABS 1 qDay TERBINAFINE HCL 250 MG TABS 446390 TERBINAFINE HCL Inactive CHERATUSSIN AC 100-10 MG/5ML SYRP 1 tsp by mouth every 4 hours as needed for cough CHERATUSSIN AC 100-10 MG/5ML SYRP 766848 GUAIFENESIN-CODEINE Inactive ACETAMINOPHEN-CODEINE #3 300-30 MG TABS 1 PO Q 4-6 HRS PRN PAIN ACETAMINOPHEN-CODEINE #3 300-30 MG TABS 565240 ACETAMINOPHEN-CODEIN E Inactive CHERATUSSIN AC 100-10 MG/5ML SYRP 1 tsp by mouth every 4 hours as needed for cough CHERATUSSIN AC 100-10 MG/5ML SYRP 593242 GUAIFENESIN-CODEINE Inactive AUGMENTIN 875-125 MG TAB 1 tab by mouth twice daily with food 20 12/03/31 AUGMENTIN 875-125 MG TAB 272542 AMOXICILLIN-POT CLAVULA EFE Inactive CHERATUSSIN AC 100-10 MG/5ML SYRP take one tsp po Q 6hours prn c ough CHERATUSSIN AC 100-10 MG/5ML SYRP 473131 GUAIFENESIN-CO DEINE Inactive PROPRANOLOL HCL 60 MG TABS 1 PO Q D P ROPRANOLOL HCL 60 MG TABS 986342 PROPRANOLOL HCL Inactive TOPAMAX 50 MG TABS take 1 tab po BID for migraines. 12/07/10 TOPAMAX 50 MG TABS 340305 TOPIRAMATE Inactive TOPAMAX 25 MG TABS 1 qHS x 1 week, then 1 BID x 1 week, then 1 qAM and 2 qHS x 1 week, then 2 BID (migraine prevention) TOPAMAX 2 5 MG TABS 830483 TOPIRAMATE Inactive LYRICA 75 MG CAPS TAKE 1 CAPSULE BY MOUTH TWICE DAILY LYRICA 75 MG CAPS PREGABALIN Inactive SYMBICORT 160-4.5 MCG/ACT AERO 2 puffs bid with rinse after 2011 SYMBICORT 160-4.5 MCG/ACT AERO BUDESONIDE-FORMOT SÁNCHEZ FUMARATE Inactive PROMETHAZINE-CODEINE 6.25-10 MG/5ML SYRP 1 tsp by mouth ever y 8 hours prn cough PROMETHAZINE-CODEINE 6.25-10 MG/5ML SYRP 486404 PROMETHAZINE-CODEINE Inactive CYMBALTA 30 MG CPEP 1 cap by mouth daily CYMBALTA 30 MG CPEP 553777 DULOXETINE HCL Inactive PREMARIN 0.625 MG TABS TAKE 1 TAB BY MOUTH DAILY 07/25 PREMARIN 0.625 MG TABS ESTROGENS CONJUGATED Inactive CHERATUSSIN AC 100-10 MG/5ML SYRP 1 tsp by mouth every 4 hours as needed for cough CHERATUSSIN AC 100-10 MG/5ML SYRP 302688 GUAIFENESIN-CODEINE Inactive PROMETHAZINE-CODEINE 6.25-10 MG/5ML SYRP 1 tsp by mout h every 6 hours if needed for cough PROMETHAZINE-CODEINE 6.25-10 MG/5ML SYRP 405225 PROMETHAZINE-CODEINE Inactive CHERATUSSIN AC 100-10 MG/5ML SYRP 1 tsp by mouth every 4 hours as needed for cough CHERATUSSIN AC 100-10 MG/5ML SYRP 368890 GUAIFENESIN-CODEINE Inactive FLUTICASONE PROPIONATE 50 MCG/ACT SUSP 1 to 2 sprays each no stril daily FLUTICASONE PROPIONATE 50 MCG/ACT SUSP 040382 FLUTICASONE PROPIONATE Inactive PREDNISONE 20 MG ORAL TABS 3 tab PO qd x 2d, 2 tab PO qd x 2d, 1 tab PO qd x 2d, 1/2 tab PO qd x 2d PREDNISONE 20 MG ORAL TABS 779748 PREDNISONE Inactive LEVOFLOXACIN 500 MG ORAL TABS 1 tab PO daily x 10 days LEVOFLOXACIN 500 MG ORAL TABS 957151 LEVOFLOXACIN Inactive CYCLOBENZAPRINE HCL 10 MG TABS 1 tablet by mouth BID prn had cherelle n CYCLOBENZAPRINE HCL 10 MG TABS 508050 CYCLOBENZAPRINE H CL Inactive ZOCOR 40 MG TAB 1 tab by mouth daily ZOCOR 40 M G TAB 141241 SIMVASTATIN Inactive ZITHROMAX Z-REYNA 250 MG TABS 2 today, then 1 daily for 4 days 201 04/09/17 ZITHROMAX Z-REYNA 250 MG TABS 5177772 AZITHROMYCIN Inac tive CEFDINIR 300 MG CAPS by mouth twice a day CEFDINIR 300 MG CAPS 20020704 CEFDINIR Inactive CEFDINIR 300 MG CAPS by mouth twice a day CEFDINIR 300 MG CAPS 20020704 CEFDINIR Inactive CEFDINIR 300 MG CAPS by mouth twice a day CEFDINIR 300 MG CAPS 996372 CEFDINIR Inactive CEFDINIR 300 MG CAPS by mouth twice a day CEFDINIR 300 MG CAPS 502733 CEFDINIR Inactive ZITHROMAX 250 MG TAB 2 po today, then 1 po q days 2-5 ZITHROMAX 250 MG TAB 6823556 AZITHROMYCIN Inactive CEFDINIR 300 MG CAPS by mouth twice a day CEFDINIR 300 MG CAPS 20020704 CEFDINIR Inactive PREDNISONE 20 MG TAB 2 tabs daily for 3 days, 1 t ab daily for 3 days, 1/2 tab daily for 2 days PREDNISONE 20 MG TAB 209548 PREDNISON E Inactive AVELOX 400 MG TABS 1 tab by mouth daily A VELOX 400 MG TABS 905897 MOXIFLOXACIN HCL Inactive AVELOX 400 MG TABS 1 tab by mouth daily A VELOX 400 MG TABS 451956 MOXIFLOXACIN HCL Inactive PREDNISONE 20 MG TAB Take 3 tabs daily for 3 days , 2 tabs daily for 3 days, 1 tab daily for 3 days, 1/2 tab daily for 3 days PREDNISONE 20 MG TAB 430271 PREDNISONE Inactive LEVAQUIN 500 MG TABS take one po QD LEVAQUIN 50 0 MG TABS 716116 LEVOFLOXACIN Inactive AZITHROMYCIN 250 MG TABS 2 po qd x 1 day, then 1 po qd x 4 days AZITHROMYCIN 250 MG TABS 2880656 AZITHROMYCIN Inactiv e MEDROL (REYNA) 4 MG TABS 6 tabs on day 1, 5 tabs on d ay 2, 4 tabs on day 3, 3 tabs on day 4, 2 tabs on day 5, 1 tab on day 6 MEDROL (REYNA) 4 MG TABS METHYLPREDNISOLONE Inactive CHERATUSSIN AC 100-10 MG/5ML SYRP 5ml po q6hr PRN Cough CHERATUSSIN AC 100-10 MG/5ML SYRP 102651 GUAIFENESIN-CODEINE Inacti ve TRIAMCINOLONE ACETONIDE 0.1 % CREA apply three times daily prn r beatrice TRIAMCINOLONE ACETONIDE 0.1 % CREA 3986549 TRIAMCINOLONE ACETONIDE Inactive AZITHROMYCIN 250 MG TABS 2 po qd x 1 day, then 1 po qd x 4 days AZITHROMYCIN 250 MG TABS 9756434 AZITHROMYCIN Inactiv e MEDROL (REYNA) 4 MG [...] days 20 13/03/08 AMOXICILLIN 500 MG CAP 042943 AMOXICILLIN Inactive AMOXICILLIN 500 MG CAP 1 tab by mouth 3 times daily x 10 days 20 14/04/28 AMOXICILLIN 500 MG CAP 179171 AMOXICILLIN Inactive ZITHROMAX 250 MG TAB 2 po today, then 1 po q days 2-5 ZITHROMAX 250 MG TAB 6738353 AZITHROMYCIN Inactive AUGMENTIN 875-125 MG TAB 1 po BID x 10 days AUGMENTIN 875- 125 MG TAB 367718 AMOXICILLIN-POT CLAVULANATE Inactive ZITHROMAX Z-RENYA 250 MG TABS 2 today, then 1 daily for 4 days 201 08/07/20 ZITHROMAX Z-REYNA 250 MG TABS 2254255 AZITHROMYCIN Inac tive ZITHROMAX 250 MG TAB 2 po today, then 1 po q days 2-5 ZITHROMAX 250 MG TAB 0331509 AZITHROMYCIN Inactive ZITHROMAX Z-REYNA 250 MG TABS 2 today, then 1 daily for 4 days 201 08/30/03 ZITHROMAX Z-REYNA 250 MG TABS 3475140 AZITHROMYCIN Inac tive CEFDINIR 300 MG CAPS 1 po BID x 10 days C EFDINIR 300 MG CAPS 054574 CEFDINIR Inactive Vital Signs Date Name Value [...] Measured Encounters Code Encounter Date Provider Facility CPT-08465 Level 4 Est. Patient 14:36:51 CDT Carlton rich MD [facility] CPT-99238 Level 3 Est. Patient 18:16:00 [employer] HELPER Blaine HERNANDEZ [facility] CPT-55870 Level 3 Est. Patient 09:45:49 [employer] HELPER Carlton rich MD [facility] CPT-74581 Level 3 Est. Patient 13:19:20 CDT Carlton rich MD [facility] CPT-90145 Level 3 Est. Patient 13:06:43 CDT Ridge tam DO [facility] CPT-29329 Level 3 Est. Patient 10:03:07 CDT Perez Mora MD [facility] CPT-97025 Level 3 Est. Patient 19:50:35 [employer] OPERATOR HELPER Carlton rich MD [facility] CPT-16676 Level 4 Est. Patient 18:05:01 [employer] OPERATOR HELPER Carlton rich MD [facility] CPT-48095 Level 3 Est. Patient 10:45:55 [employer] R[employer] OPERATOR HELPER Hugo Restrepo MD [facility] CPT-54250 Level 3 Est. Patient 14:12:49 CDT Griffin HERNANDEZ [facility] CPT-14631 Level 3 Est. Patient 17:37:24 CDT Carlton rich MD [facility] CPT-05799 Level 3 Est. Patient 16:51:54 CDT Carlton rich MD [facility] CPT-41789 Level 3 Est. Patient 12:18:11 CDT Hugo Restrepo MD [facility] CPT-35985 Level 3 Est. Patient 11:30:25 CDT Marcy crisostomo MD PhD [facility] CPT-09327 Level 3 Est. 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 Patient 16:31:06 DRILL RIG OPERATOR HELPER Carlton rich MD [facility] CPT-19996 Level 3 Est. Patient 16:23:24 DRILL RIG OPERATOR HELPER Ridge tam DO [facility] CPT-97114 Level 3 Est. Patient 12:34:12 CDT Cartlon rich MD [facility] CPT-86197 Level 2 Est. Patient 15:43:33 CDT Robi armstrong MD [facility] CPT-05165 Level 4 Est. Patient 14:04:44 CDT Carlton rich MD [facility] CPT-16708 Level 3 Est. Patient 05:47:59 CDT Ridge tam DO [facility] CPT-89357 Level 3 Est. Patient 13:12:53 DRILL RIG OPERATOR HELPER Carlton rich MD [facility] CPT-10028 Level 3 Est. Patient 14:26:53 CDT Hugo Restrepo MD [facility] Procedures Code Procedure Name Date Entry Date Standard Desc ription CPT-91570 Hip bilat min 2V w AP pelvis 13:16:20 CDT 2 CPT-72844 Pelvis only 13:07:33 CDT CPT-55123 Spec Collection and Handling Fee 11:25:12 C DT CPT-31823 Fluzone Quadrivalent Intramuscular Suspe nsion 0.5 ML 14:31:55 CDT CPT-55383 Abx/Therapy Injection 13:28:47 DRILL RIG OPERATOR HELPER CPT-J2930 Solu Medrol 125 mg (Methyl Prednisolone Sodium Succinate) 12:00:47 DRILL RIG OPERATOR HELPER CPT-78924 Venipuncture Draw Fee 11:33:31 CDT CPT-33160 EKG Trac and Interp 11:21:09 CDT CPT-32252 Chest 2V Frontal and Lat 11:21:09 CDT 12/15 CPT-59570 Venipuncture Draw Fee 08:02:34 CDT CPT-75236 Chest 2V Frontal and Lat 05:47:59 CDT 06/05
--- OUTSIDE RECORDS SUMMARY | 2019-10-08 08:41 | XMS REPORT | Clinical Summary ---
Author Author Caitlin, Juliana Martinez Organization [facility] Address Unknown Phone Unavailable Allergies, Adverse [...] sites Sinusitis 473.9 Active Diya De Guzman RAD TECH Unspecified sinusitis (chronic) Bronchitis-Acute 466.0 Active Carlton Hu MD Acute bronchitis URI - acute 465.9 Active Elise Whitmore RAD TECH Acute upper respiratory infections of unspecified site Pharyngitis acute 462 Active Elise Whitmore A PRN Acute pharyngitis Rhinitis, acute 460 Active Elise Whitmore APR N Acute nasopharyngitis [common cold] Sinusitis 473.9 Active Diya De Guzman RAD TECH Unspecified sinusitis (chronic) Bronchitis 490 Active Diya De Guzman RAD TECH Bronchitis, not specified as acute or chronic [...] crisostomo MD PhD SINUSITIS, ACUTE ICD-461.9 Inactive Huog dominguez MD Medication List Medication Instructions Start Date Stop Date Generic Name NDC Status Provider Patient Instruction PROAIR HFA 108 (90 BASE) MCG/ACT AERS 2 puffs four times a d ay as needed ALBUTEROL SULFATE [id number] Active Jillina Frazell APR N Active MUCINEX DM MAXIMUM STRENGTH 60-1200 MG [id number] 1 tab po q am 2016 DEXTROMETHORPHAN-GUAIFENESIN 15455343747 Active Jillina Frazell RAD TECH Active TUSSIONEX PENNKINETIC ER 10-8 MG/5ML LQCR 5ml po q12hr PRN Cough 20 14/06/21 HYDROCOD POLST-CHLORPHEN POLST 33942267044 Active Carlton Hu MD Active PREDNISONE 20 MG TAB 2 tabs daily for 3 days, 1 t ab daily for 3 days, 1/2 tab daily for 2 days PREDNISONE 75828752502 No Longer Active Venullina Cesarl RAD TECH Active TUSSIONEX PENNKINETIC ER 10-8 MG/5ML ORAL LQCR 5 mL PO q 12 hrs PRN cough HYDROCOD POLST-CHLORPHEN POLST 65650465617 No Longer Active Jillina Frazell RAD TECH Active FLUTICASONE PROPIONATE 50 MCG/ACT SUSP 2 sprays each n ostril daily until bottle is empty FLUTICASONE PROPIONATE 52201462129 No Longer Ac tive Jillina Cesarl RAD TECH Active ASMANEX 60 METERED DOSES 220 MCG/INH AEPB 1 puff bid with ri nse after MOMETASONE FUROATE 06267594571 No Longer Active Venullina Darlin meneses RAD TECH Active ZITHROMAX Z-REYNA 250 MG TABS 2 today, then 1 daily for 4 days 201 09/29/14 AZITHROMYCIN 94826207912 No Longer Active Elise Whitmore APRN Active TUSSIONEX PENNKINETIC ER 10-8 MG/5ML LQCR 5ml po q12hr PRN Cough HYDROCOD POLST-CHLORPHEN POLST 21083347548 No Longer Active Elise Whitmore APRN Active MUCINEX D 60-600 MG [id number] 1 tab po q am PSEUDOEPHEDRINE-GUAIFENESIN 51713113786 Active Jillina Frazell RAD TECH Active PREDNISONE 20 MG TAB 2 tabs daily for 3 days, 1 t ab daily for 3 days, 1/2 tab daily for 2 days PREDNISONE 00569053671 No Longer Active Jillina Frazell RAD TECH Active AMOXICILLIN 500 MG CAPS 2 po BID x 10 days AMOX ICILLIN 85952811563 No Longer Active Jillina Frazell RAD TECH Active SINGULAIR 10 MG TABS 1 po qday for allergies 2 MONTELUKAST SODIUM 81595432146 No Longer Active Carlton Hu MD Acti ve LEVAQUIN 500 MG TAB 1 tablet by mouth daily LEV OFLOXACIN 70320727689 No Longer Active Carlton Hu MD Active FLUTICASONE PROPIONATE 50 MCG/ACT SUSP 2 sprays each n ostril daily for 2 weeks, then 1 spray each nostril daily. FLUTICASONE PRO PIONATE 64828489064 Active Elise Whitmore APRN Active ZITHROMAX 250 MG TAB 2 po today, then 1 po q days 2-5 AZITHROMYCIN 58478942501 No Longer Active Elise Whitmore APRN Acti ve XANAX 0.5 MG TABS one tablet by mouth daily prn anxiety ALPRAZOLAM 23118906327 Active Elise Whitmore APRN Active CYMBALTA 30 MG CPEP 1 cap by mouth daily for depression DULOXETINE HCL 16948919668 Active Carlton Hu MD Active CEFDINIR 300 MG CAPS 1 po BID x 10 days CEFDINI R 92289575890 No Longer Active Carlton Hu MD Active ZOCOR 40 MG TAB 1 tab by mouth daily SIMVASTATI N 43270143657 No Longer Active Carlton Hu MD Active CYCLOBENZAPRINE HCL 10 MG TABS 1 tablet by mouth BID prn had cherelle n CYCLOBENZAPRINE HCL 95528979756 No Longer Active Carlton Hu MD Active LEVOFLOXACIN 500 MG ORAL TABS 1 tab PO daily x 10 days LEVOFLOXACIN 95513934148 No Longer Active Carlton Hu MD Acti ve PREDNISONE 20 MG ORAL TABS 3 tab PO qd x 2d, 2 tab PO qd x 2d, 1 tab PO qd x 2d, 1/2 tab PO qd x 2d PREDNISONE 86079987289 No Longer Active Carlton Hu MD Active FLUTICASONE PROPIONATE 50 MCG/ACT SUSP 1 to 2 sprays each no stril daily FLUTICASONE PROPIONATE 97449010497 No Longer Active T jaz HERNANDEZ Active CHERATUSSIN AC 100-10 MG/5ML SYRP 1 tsp by mouth every 4 hours as needed for cough GUAIFENESIN-CODEINE 94523782762 No Longer Activ e Blaine HERNANDEZ Active PROMETHAZINE-CODEINE 6.25-10 MG/5ML SYRP 1 tsp by mout h every 6 hours if needed for cough PROMETHAZINE-CODEINE 07143631722 No Long er Active Blaine HERNANDEZ Active CHERATUSSIN AC 100-10 MG/5ML SYRP 1 tsp by mouth every 4 hours as needed for cough GUAIFENESIN-CODEINE 53143106828 No Longer Activ e Blaine HERNANDEZ Active ZITHROMAX Z-REYNA 250 MG TABS 2 today, then 1 daily for 4 days 201 08/30/03 AZITHROMYCIN 08224318974 No Longer Active Columba Parrish Act nael ZITHROMAX 250 MG TAB 2 po today, then 1 po q days 2-5 AZITHROMYCIN 04733956124 No Longer Active Carlton Hu MD Acti ve ZITHROMAX Z-REYNA 250 MG TABS 2 today, then 1 daily for 4 days 201 08/07/20 AZITHROMYCIN 89081672312 No Longer Active Columba Parrish Act nael AUGMENTIN 875-125 MG TAB 1 po BID x 10 days AMOXICILLIN- POT CLAVULANATE 40039253582 No Longer Active Diya De Guzman APRN Active ZITHROMAX 250 MG TAB 2 po today, then 1 po q days 2-5 AZITHROMYCIN 70060949619 No Longer Active Carlton Hu MD Acti ve TRAMADOL HCL 50 MG TABS 1 po tid with ES Tylenol TRAMADOL HCL 43539770864 Active Carlton Hu MD Active PREMARIN 0.625 MG TABS TAKE 1 TAB BY MOUTH DAILY 07/25 ESTROGENS CONJUGATED 08742765033 No Longer Active Ridge Bess DO Active CYMBALTA 30 MG CPEP 1 cap by mouth daily DULOXE SNEHA HCL 97098967963 No Longer Active Ridge Bess DO Active AMOXICILLIN 500 MG CAP 1 tab by mouth 3 times daily x 10 days 20 14/04/28 AMOXICILLIN 57817248567 No Longer Active Carlton Hu MD Active AMOXICILLIN 500 MG CAP 1 tab by mouth 3 times daily x 10 days 20 13/03/08 AMOXICILLIN 80456447343 No Longer Active Carlton Hu MD Active PROMETHAZINE-CODEINE 6.25-10 MG/5ML SYRP 1 tsp by mouth ever y 8 hours prn cough PROMETHAZINE-CODEINE 75342321966 No Longer Active Robert Hu MD Active MEDROL (REYNA) 4 MG TABS 6 pills x 1 day, then 5 pill s x 1 day then 4 pills x 1 day, then 3 pills x 1 day, then 2 pills x 1 day, then 1 pill x 1 day, then stop METHYLPREDNISOLONE 83463625365 No Longer Active Parris Mora MD Active AZITHROMYCIN 250 MG TABS 2 po qd x 1 day, then 1 po qd x 4 days AZITHROMYCIN 21968859088 No Longer Active Perez Mora MD Active SYMBICORT 160-4.5 MCG/ACT AERO 2 puffs bid with rinse after 2011 BUDESONIDE-FORMOTEROL FUMARATE 73601104358 No Longer Active Perez Mora MD Active LYRICA 75 MG CAPS TAKE 1 CAPSULE BY MOUTH TWICE DAILY 2013 PREGABALIN 61055999796 No Longer Active Carlton Hu MD Active LYRICA 100 MG CAPS Take 1 tab po BID for fibromyalgia PREGABALIN 97673712119 Active Carlton Hu MD Active TOPAMAX 25 MG TABS 1 qHS x 1 week, then 1 BID x 1 week, then 1 qAM and 2 qHS x 1 week, then 2 BID (migraine prevention) TOPIRAMAT E 33110590993 No Longer Active Jerica FUENTES Active TOPAMAX 50 MG TABS take 1 tab po BID for migraines. 12/07/10 TOPIRAMATE 17157878072 No Longer Active Jerica AGUILARA Ac tive TOPAMAX 100 MG TABS Take 1 tablet po bid TOPIRAMATE 4999 6619603 Active Elise Whitmore APRN Active TRIAMCINOLONE ACETONIDE 0.1 % CREA apply three times daily prn r beatrice TRIAMCINOLONE ACETONIDE 40692013228 No Longer Active Carlton Hu MD Active PAXIL 40 MG TAB take 1 tab po qday for depression PAROXETINE HCL 00515339134 Active Elise Whitmore APRN Active CHERATUSSIN AC 100-10 MG/5ML SYRP 5ml po q6hr PRN Cough GUAIFENESIN-CODEINE 94613692880 No Longer Active Carlton Hu MD Active MEDROL (REYNA) 4 MG TABS 6 tabs on day 1, 5 tabs on d ay 2, 4 tabs on day 3, 3 tabs on day 4, 2 tabs on day 5, 1 tab on day 6 METHYLPREDNISOLONE 65934304028 No Longer Active Perez Mora MD Active AZITHROMYCIN 250 MG TABS 2 po qd x 1 day, then 1 po qd x 4 days AZITHROMYCIN 20911122704 No Longer Active Perez Mora MD Active PROPRANOLOL HCL 60 MG TABS 1 PO Q D PROPRANOL OL HCL 24532025950 No Longer Active Perez Mora MD Active CHERATUSSIN AC 100-10 MG/5ML SYRP take one tsp po Q 6hours prn c ough GUAIFENESIN-CODEINE 99943291914 No Longer Active Perez Means Active AUGMENTIN 875-125 MG TAB 1 tab by mouth twice daily with food 20 12/03/31 AMOXICILLIN-POT CLAVULANATE 36358511808 No Longer Active Chanel Mora MD Active CHERATUSSIN AC 100-10 MG/5ML SYRP 1 tsp by mouth every 4 hours as needed for cough GUAIFENESIN-CODEINE 52650823773 No Longer Activ e Hugo Restrepo MD Active ACETAMINOPHEN-CODEINE #3 300-30 MG TABS 1 PO Q 4-6 HRS PRN PAIN ACETAMINOPHEN-CODEINE 53931144156 No Longer Active Hugo Restrepo MD Active LEVAQUIN 500 MG TABS take one po QD LEVOFLOXACI N 36653282669 No Longer Active Griffin HERNANDEZ Active PREDNISONE 20 MG TAB Take 3 tabs daily for 3 days , 2 tabs daily for 3 days, 1 tab daily for 3 days, 1/2 tab daily for 3 days P REDNISONE 06244552735 No Longer Active Carlton Hu MD Active AVELOX 400 MG TABS 1 tab by mouth daily MOXIFLO XACIN HCL 08062884635 No Longer Active Cartlon Hu MD Active CHERATUSSIN AC 100-10 MG/5ML SYRP 1 tsp by mouth every 4 hours as needed for cough GUAIFENESIN-CODEINE 99758657462 No Longer Activ e Hugo Restrepo MD Active AVELOX 400 MG TABS 1 tab by mouth daily MOXIFLO XACIN HCL 32231300410 No Longer Active Marcy De La Rosa MD PhD Active TERBINAFINE HCL 250 MG TABS 1 qDay TERBINAF INE HCL 74453994721 No Longer Active Marcy De La Rosa MD PhD Active CHERATUSSIN AC 100-10 MG/5ML SYRP 1 tsp by mouth every 4 hours as needed for cough GUAIFENESIN-CODEINE 82374178887 No Longer Activ e Marcy De La Rosa MD PhD Active AVELOX 400 MG TABS 1 tab by mouth daily MOXIFLO XACIN HCL 77796289683 No Longer Active Marcy De La Rosa MD PhD Active HYDROCODONE-ACETAMINOPHEN 5-325 MG TABS 1 po q 6hr PRN cough 201 05/09/16 HYDROCODONE-ACETAMINOPHEN 09255968252 No Longer Active Marcy De La Rosa MD PhD Active PREDNISONE 20 MG TAB 2 tabs daily for 3 days, 1 t ab daily for 3 days, 1/2 tab daily for 2 days PREDNISONE 94532054582 No Longer Active Carlton Hu MD Active CEFDINIR 300 MG CAPS by mouth twice a day CEFDI ODILIA 77769640307 No Longer Active Carlton Hu MD Active HYDROCHLOROTHIAZIDE 25 MG TABS 1 TAB PO DAILY H YDROCHLOROTHIAZIDE 42553263576 Active Carlton Hu MD Active ACETAMINOPHEN-CODEINE #3 300-30 MG TABS 1 tablet po q 4-6hrs prn pain ACETAMINOPHEN-CODEINE 73919327151 No Longer Active Ridge Bess DO Active ZITHROMAX 250 MG TAB 2 po today, then 1 po q days 2-5 AZITHROMYCIN 34362263503 No Longer Active Carlton Hu MD Acti ve CHERATUSSIN AC 100-10 MG/5ML SYRP take 1 tsp po q4-6 hours prn c ough GUAIFENESIN-CODEINE 92752927527 No Longer Active Carlton Hu MD Active ACETAMINOPHEN-CODEINE #3 300-30 MG TABS 1 PO Q 4-6 HR PRN PAIN 2 ACETAMINOPHEN-CODEINE 77927173027 No Longer Active Carlton rich MD Active LORTAB 7.5-500 MG/15ML ELIX 7.5 ml po q 4 hour prn cough HYDROCODONE-ACETAMINOPHEN 15240382369 No Longer Active Carlton Hu MD Active PREDNISONE 20 MG TAB 1 po bid 3 days, then 1 po q day 3 days 201 05/03/07 PREDNISONE 09236512737 No Longer Active Carlton Hu MD Active ELMIRON 100 MG CAPS 2 tablets in the am and 1 tablet at hs PENTOSAN POLYSULFATE SODIUM 49829108702 Active Carlton Hu MD Ac tive CEFDINIR 300 MG CAPS by mouth twice a day CEFDI ODILIA 77840092738 No Longer Active Carlton Hu MD Active CEFDINIR 300 MG CAPS by mouth twice a day CEFDI ODILIA 79069793233 No Longer Active Carlton Hu MD Active CEFDINIR 300 MG CAPS by mouth twice a day CEFDI ODILIA 19734178419 No Longer Active Carlton Hu MD Active TESSALON PERLES 100 MG CAP 1 tablet by mouth 3 times daily a s needed for cough BENZONATATE 51191204697 No Longer Active Carlton bustamante MD Active CEFDINIR 300 MG CAPS by mouth twice a day CEFDI ODILIA 51698526924 No Longer Active Carlton Hu MD Active ZITHROMAX Z-REYNA 250 MG TABS 2 today, then 1 daily for 4 days 201 04/09/17 AZITHROMYCIN 30235469350 No Longer Active Hugo Restrepo MD Active TESSALON PERLES 100 MG CAP 1 tablet by mouth 3 times daily a s needed for cough TESSALON PERLES 100 MG CAP 429180 BENZONATATE I nactive PREDNISONE 20 MG TAB 1 po bid 3 days, then 1 po q day 3 days 201 05/03/07 PREDNISONE 20 MG TAB 290186 PREDNISONE Inactive LORTAB 7.5-500 MG/15ML ELIX 7.5 ml po q 4 hour prn cough LORTAB 7.5-500 MG/15ML ELIX HYDROCODONE-ACETAMINOPHEN Inacti ve ACETAMINOPHEN-CODEINE #3 300-30 MG TABS 1 PO Q 4-6 HR PRN PAIN 2 ACETAMINOPHEN-CODEINE #3 300-30 MG TABS 242290 ACETAMIN OPHEN-CODEINE Inactive CHERATUSSIN AC 100-10 MG/5ML SYRP take 1 tsp po q4-6 hours prn c ough CHERATUSSIN AC 100-10 MG/5ML SYRP 145516 GUAIFENESIN-CO DEINE Inactive ACETAMINOPHEN-CODEINE #3 300-30 MG TABS 1 tablet po q 4-6hrs prn pain ACETAMINOPHEN-CODEINE #3 300-30 MG TABS 757113 ACETAMIN OPHEN-CODEINE Inactive HYDROCODONE-ACETAMINOPHEN 5-325 MG TABS 1 po q 6hr PRN cough 201 05/09/16 HYDROCODONE-ACETAMINOPHEN 5-325 MG TABS 281333 HYDROCODONE-ACETAMINOPHEN Inactive AVELOX 400 MG TABS 1 tab by mouth daily A VELOX 400 MG TABS 385254 MOXIFLOXACIN HCL Inactive CHERATUSSIN AC 100-10 MG/5ML SYRP 1 tsp by mouth every 4 hours as needed for cough CHERATUSSIN AC 100-10 MG/5ML SYRP 898317 GUAIFENESIN-CODEINE Inactive TERBINAFINE HCL 250 MG TABS 1 qDay TERBINAFINE HCL 250 MG TABS 602821 TERBINAFINE HCL Inactive CHERATUSSIN AC 100-10 MG/5ML SYRP 1 tsp by mouth every 4 hours as needed for cough CHERATUSSIN AC 100-10 MG/5ML SYRP 171832 GUAIFENESIN-CODEINE Inactive ACETAMINOPHEN-CODEINE #3 300-30 MG TABS 1 PO Q 4-6 HRS PRN PAIN ACETAMINOPHEN-CODEINE #3 300-30 MG TABS 932088 ACETAMINOPHEN-CODEIN E Inactive CHERATUSSIN AC 100-10 MG/5ML SYRP 1 tsp by mouth every 4 hours as needed for cough CHERATUSSIN AC 100-10 MG/5ML SYRP 424976 GUAIFENESIN-CODEINE Inactive AUGMENTIN 875-125 MG TAB 1 tab by mouth twice daily with food 20 12/03/31 AUGMENTIN 875-125 MG TAB 350205 AMOXICILLIN-POT CLAVULA EFE Inactive CHERATUSSIN AC 100-10 MG/5ML SYRP take one tsp po Q 6hours prn c ough CHERATUSSIN AC 100-10 MG/5ML SYRP 443634 GUAIFENESIN-CO DEINE Inactive PROPRANOLOL HCL 60 MG TABS 1 PO Q D P ROPRANOLOL HCL 60 MG TABS 994452 PROPRANOLOL HCL Inactive TOPAMAX 50 MG TABS take 1 tab po BID for migraines. 12/07/10 TOPAMAX 50 MG TABS 451726 TOPIRAMATE Inactive TOPAMAX 25 MG TABS 1 qHS x 1 week, then 1 BID x 1 week, then 1 qAM and 2 qHS x 1 week, then 2 BID (migraine prevention) TOPAMAX 2 5 MG TABS 258819 TOPIRAMATE Inactive LYRICA 75 MG CAPS TAKE 1 CAPSULE BY MOUTH TWICE DAILY LYRICA 75 MG CAPS PREGABALIN Inactive SYMBICORT 160-4.5 MCG/ACT AERO 2 puffs bid with rinse after 2011 SYMBICORT 160-4.5 MCG/ACT AERO BUDESONIDE-FORMOT SÁNCHEZ FUMARATE Inactive PROMETHAZINE-CODEINE 6.25-10 MG/5ML SYRP 1 tsp by mouth ever y 8 hours prn cough PROMETHAZINE-CODEINE 6.25-10 MG/5ML SYRP 082376 PROMETHAZINE-CODEINE Inactive CYMBALTA 30 MG CPEP 1 cap by mouth daily CYMBALTA 30 MG CPEP 447413 DULOXETINE HCL Inactive PREMARIN 0.625 MG TABS TAKE 1 TAB BY MOUTH DAILY 07/25 PREMARIN 0.625 MG TABS ESTROGENS CONJUGATED Inactive CHERATUSSIN AC 100-10 MG/5ML SYRP 1 tsp by mouth every 4 hours as needed for cough CHERATUSSIN AC 100-10 MG/5ML SYRP 536179 GUAIFENESIN-CODEINE Inactive PROMETHAZINE-CODEINE 6.25-10 MG/5ML SYRP 1 tsp by mout h every 6 hours if needed for cough PROMETHAZINE-CODEINE 6.25-10 MG/5ML SYRP 861927 PROMETHAZINE-CODEINE Inactive CHERATUSSIN AC 100-10 MG/5ML SYRP 1 tsp by mouth every 4 hours as needed for cough CHERATUSSIN AC 100-10 MG/5ML SYRP 730225 GUAIFENESIN-CODEINE Inactive FLUTICASONE PROPIONATE 50 MCG/ACT SUSP 1 to 2 sprays each no stril daily FLUTICASONE PROPIONATE 50 MCG/ACT SUSP 2382394 FLUTICASONE PROPIONATE Inactive PREDNISONE 20 MG ORAL TABS 3 tab PO qd x 2d, 2 tab PO qd x 2d, 1 tab PO qd x 2d, 1/2 tab PO qd x 2d PREDNISONE 20 MG ORAL TABS 520700 PREDNISONE Inactive LEVOFLOXACIN 500 MG ORAL TABS 1 tab PO daily x 10 days LEVOFLOXACIN 500 MG ORAL TABS 700126 LEVOFLOXACIN Inactive CYCLOBENZAPRINE HCL 10 MG TABS 1 tablet by mouth BID prn had cherelle n CYCLOBENZAPRINE HCL 10 MG TABS 841109 CYCLOBENZAPRINE H CL Inactive ZOCOR 40 MG TAB 1 tab by mouth daily ZOCOR 40 M G TAB 738726 SIMVASTATIN Inactive TUSSIONEX PENNKINETIC ER 10-8 MG/5ML [...] empty FLUTICASONE PROPIONATE 50 MCG/ACT SUSP 17 22806 FLUTICASONE PROPIONATE Inactive TUSSIONEX PENNKINETIC ER 10-8 MG/5ML ORAL LQCR 5 mL PO q 12 hrs PRN cough TUSSIONEX PENNKINETIC ER 10-8 MG/5ML ORAL LQCR HYDROCOD POLST-CHLORPHEN POLST Inactive ZITHROMAX Z-REYNA 250 MG TABS 2 today, then 1 daily for 4 days 201 04/09/17 ZITHROMAX Z-REYNA 250 MG TABS 9737717 AZITHROMYCIN Inac tive CEFDINIR 300 MG CAPS [...] q days 2-5 ZITHROMAX 250 MG TAB 4274831 AZITHROMYCIN Inactive CEFDINIR 300 MG CAPS by mouth twice a day CEFDINIR 300 MG CAPS 20020704 CEFDINIR Inactive PREDNISONE 20 MG TAB 2 tabs daily for 3 days, 1 t ab daily for 3 days, 1/2 tab daily for 2 days PREDNISONE 20 MG TAB 197533 PREDNISON E Inactive AVELOX 400 MG TABS 1 tab by mouth daily A VELOX 400 MG TABS 559717 MOXIFLOXACIN HCL Inactive AVELOX 400 MG TABS 1 tab by mouth daily A VELOX 400 MG TABS 364375 MOXIFLOXACIN HCL Inactive PREDNISONE 20 MG TAB Take 3 tabs daily for 3 days , 2 tabs daily for 3 days, 1 tab daily for 3 days, 1/2 tab daily for 3 days PREDNISONE 20 MG TAB 481819 PREDNISONE Inactive LEVAQUIN 500 MG TABS take one po QD LEVAQUIN 50 0 MG TABS 057103 LEVOFLOXACIN Inactive AZITHROMYCIN 250 MG TABS 2 po qd x 1 day, then 1 po qd x 4 days AZITHROMYCIN 250 MG TABS 6725897 AZITHROMYCIN Inactiv e MEDROL (REYNA) 4 MG TABS 6 tabs on day 1, 5 tabs on d ay 2, 4 tabs on day 3, 3 tabs on day 4, 2 tabs on day 5, 1 tab on day 6 MEDROL (REYNA) 4 MG TABS 480455 METHYLPREDNISOLONE Inactive CHERATUSSIN AC 100-10 MG/5ML SYRP 5ml po q6hr PRN Cough CHERATUSSIN AC 100-10 MG/5ML SYRP 641313 GUAIFENESIN-CODEINE Inacti ve TRIAMCINOLONE ACETONIDE 0.1 % CREA apply three times daily prn r beatrice TRIAMCINOLONE ACETONIDE 0.1 % CREA 7261219 TRIAMCINOLONE ACETONIDE Inactive AZITHROMYCIN 250 MG TABS 2 po qd x 1 day, then 1 po qd x 4 days AZITHROMYCIN 250 MG TABS 5896280 AZITHROMYCIN Inactiv e MEDROL (REYNA) 4 MG TABS 6 pills x 1 day, then 5 pill s x 1 day then 4 pills x 1 day, then 3 pills x 1 day, then 2 pills x 1 day, then 1 pill x 1 day, then stop MEDROL (REYNA) 4 MG TABS 569054 METHYLPREDNISOLONE Inactive AMOXICILLIN 500 MG CAP 1 tab by mouth 3 times daily x 10 days 20 13/03/08 AMOXICILLIN 500 MG CAP 711871 AMOXICILLIN Inactive AMOXICILLIN 500 MG CAP 1 tab by mouth 3 times daily x 10 days 20 14/04/28 AMOXICILLIN 500 MG CAP 274299 AMOXICILLIN Inactive ZITHROMAX 250 MG TAB 2 po today, then 1 po q days 2-5 ZITHROMAX 250 MG TAB 8330432 AZITHROMYCIN Inactive AUGMENTIN 875-125 MG TAB 1 po BID x 10 days AUGMENTIN 875- 125 MG TAB 510295 AMOXICILLIN-POT CLAVULANATE Inactive ZITHROMAX Z-REYNA 250 MG TABS 2 today, then 1 daily for 4 days 201 08/07/20 ZITHROMAX Z-REYNA 250 MG TABS 1932765 AZITHROMYCIN Inac tive ZITHROMAX 250 MG TAB 2 po today, then 1 po q days 2-5 ZITHROMAX 250 MG TAB 4290229 AZITHROMYCIN Inactive ZITHROMAX Z-REYNA 250 MG TABS 2 today, then 1 daily for 4 days 201 08/30/03 ZITHROMAX Z-REYNA 250 MG TABS 6802982 AZITHROMYCIN Inac tive CEFDINIR 300 MG CAPS 1 po BID x 10 days C EFDINIR 300 MG CAPS 239324 CEFDINIR Inactive ZITHROMAX 250 MG TAB 2 po today, then 1 po q days 2-5 ZITHROMAX 250 MG TAB 3714233 AZITHROMYCIN Inactive LEVAQUIN 500 MG TAB 1 tablet by mouth daily LEVAQUIN 500 MG TAB 424960 LEVOFLOXACIN Inactive SINGULAIR 10 MG TABS 1 po qday for allergies 2 SINGULAIR 10 MG TABS 381220 MONTELUKAST SODIUM Inactive AMOXICILLIN 500 MG CAPS 2 po BID x 10 days AMOXICILLIN 500 MG CAPS 904032 AMOXICILLIN Inactive PREDNISONE 20 MG TAB 2 tabs daily for 3 days, 1 t ab daily for 3 days, 1/2 tab daily for 2 days PREDNISONE 20 MG TAB 704334 PREDNISON E Inactive ZITHROMAX Z-REYNA 250 MG TABS 2 today, then 1 daily for 4 days 201 09/29/14 ZITHROMAX Z-REYNA 250 MG TABS 3148544 AZITHROMYCIN Inac tive PREDNISONE 20 MG TAB 2 tabs daily for 3 days, 1 t ab daily for 3 days, 1/2 tab daily for 2 days PREDNISONE 20 MG TAB 797159 PREDNISON E Inactive Vital Signs Date Name [...] Measured Encounters Code Encounter Date Provider Facility CPT-13836 Level 3 Est. Patient 13:42:38 CDT Italo [facility] CPT-81066 Level 3 Est. Patient 13:23:51 CDT Diya cobian [facility] CPT-20614 Level 3 Est. Patient 14:22:19 GAS FITTER Diya cobian [facility] CPT-60967 Level 3 Est. Patient 10:11:46 CDT Carlton rich MD [facility] CPT-91840 Level 3 Est. Patient 17:29:43 CDT Elise Guerrero chelly RAD TECH [facility] CPT-22103 Level 3 Est. Patient 11:58:06 CDT Elise Cesar spaulding RAD TECH [facility] CPT-23572 Level 4 Est. Patient 14:36:51 CDT Carlton rich MD [facility] CPT-85762 Level 3 Est. Patient 18:16:00 GAS FITTER Blaine Freeman [facility] CPT-04600 Level 3 Est. Patient 09:45:49 GAS FITTER Carlton rich MD [facility] CPT-40110 Level 3 Est. Patient 13:19:20 CDT Carlton rich MD [facility] CPT-15501 Level 3 Est. Patient 13:06:43 CDT Ridge tam DO [facility] CPT-81382 Level 3 Est. Patient 10:03:07 CDT Perez Mora MD [facility] CPT-26029 Level 3 Est. Patient 19:50:35 GAS FITTER Carlton rich MD [facility] CPT-47579 Level 4 Est. Patient 18:05:01 GAS FITTER Carlton rich MD [facility] CPT-44839 Level 3 Est. Patient 10:45:55 GAS FITTER Hugo Restrepo MD [facility] CPT-61679 Level 3 Est. Patient 14:12:49 CDT Griffin lincoln [facility] CPT-98018 Level 3 Est. Patient 17:37:24 CDT Carlton rich MD [facility] CPT-82850 Level 3 Est. Patient 16:51:54 CDT Carlton rich MD [facility] CPT-45939 Level 3 Est. Patient 12:18:11 CDT Hugo Restrepo MD [facility] CPT-18115 Level 3 Est. Patient 11:30:25 CDT Marcy crisostomo MD PhD [facility] CPT-69103 Level 3 Est. Patient 12:00:47 GAS FITTER Carlton rich MD [facility] CPT-25183 Level 3 Est. Patient 16:31:06 GAS FITTER Carlton rich MD [facility] CPT-62583 Level 3 Est. Patient 16:23:24 GAS FITTER Ridge tam [facility] CPT-54552 Level 3 Est. Patient 12:34:12 CDT Carlton rich MD [facility] CPT-63221 Level 2 Est. Patient 15:43:33 CDT Robi armstrong MD [facility] CPT-08246 Level 4 Est. Patient 14:04:44 CDT Carlton rich MD [facility] CPT-55199 Level 3 Est. Patient 05:47:59 CDT Ridge tam [facility] CPT-01001 Level 3 Est. Patient 13:12:53 GAS FITTER Carlton rich MD [facility] CPT-14752 Level 3 Est. Patient 14:26:53 CDT Hugo Restrepo MD [facility] Procedures Code Procedure Name Date Entry Date Standard Desc ription CPT-J0696 Rocephin 1gm Inj Solr 14:32:13 CDT CPT-J1020 Depo Medrol 60 mg (Methyl Prednisolone A cetate) 14:32:13 CDT CPT-J1100 Decadron 6mg (Dexamethasone) 14:32:13 CDT 2 CPT-83144 Hip bilat min 2V w AP pelvis 13:16:20 CDT 2 CPT-40699 Pelvis only 13:07:33 CDT CPT-89422 Spec Collection and Handling Fee 11:25:12 C DT CPT-35281 Fluzone Quadrivalent Intramuscular Suspe nsion 0.5 ML 14:31:55 CDT CPT-10554 Abx/Therapy Injection 13:28:47 GAS FITTER CPT-J2930 Solu Medrol 125 mg (Methyl Prednisolone Sodium Succinate) 12:00:47 GAS FITTER CPT-91850 Venipuncture Draw Fee 11:33:31 CDT CPT-90783 EKG Trac and Interp 11:21:09 CDT CPT-28772 Chest 2V Frontal and Lat 11:21:09 CDT 12/15 CPT-78020 Venipuncture Draw Fee 08:02:34 CDT CPT-32215 Chest 2V Frontal and Lat 05:47:59 CDT 06/05
--- OUTSIDE RECORDS SUMMARY | 2019-10-08 08:41 | XMS REPORT | Clinical Summary ---
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 FLUTICASONE PRO PIONATE 14287953109 Active Elise Whitmore APRN Active ZITHROMAX 250 MG TAB 2 po today, then 1 po q days 2-5 AZITHROMYCIN 37928132107 No Longer Active Elise Whitmore APRN Acti ve XANAX 0.5 MG TABS one tablet by mouth daily prn anxiety ALPRAZOLAM 79028799826 Active Elise Whitmore APRN Active CYMBALTA 30 MG CPEP 1 cap by mouth daily for depression DULOXETINE HCL 38722479830 Active Carlton Hu MD Active CEFDINIR 300 MG CAPS 1 po BID x 10 days CEFDINI R 85852144419 No Longer Active Carlton Hu MD Active ZOCOR 40 MG TAB 1 tab by mouth daily SIMVASTATI N 83614374072 No Longer Active Carlton Hu MD Active CYCLOBENZAPRINE HCL 10 MG TABS 1 tablet by mouth BID prn had cherelle n CYCLOBENZAPRINE HCL 41256183207 No Longer Active Carlton Hu MD Active LEVOFLOXACIN 500 MG ORAL TABS 1 tab PO daily x 10 days LEVOFLOXACIN 63126769543 No Longer Active Carlton Hu MD Acti ve PREDNISONE 20 MG ORAL TABS 3 tab PO qd x 2d, 2 tab PO qd x 2d, 1 tab PO qd x 2d, 1/2 tab PO qd x 2d PREDNISONE 30417275524 No Longer Active Carlton Hu MD Active TUSSIONEX PENNKINETIC ER 10-8 MG/5ML ORAL LQCR 5 mL PO q 12 hrs PRN cough HYDROCOD POLST-CHLORPHEN POLST 24493532588 Active Carlton Hu MD Active FLUTICASONE PROPIONATE 50 MCG/ACT SUSP 1 to 2 sprays each no stril daily FLUTICASONE PROPIONATE 32434050946 No Longer Active T jaz HERNANDEZ Active CHERATUSSIN AC 100-10 MG/5ML SYRP 1 tsp by mouth every 4 hours as needed for cough GUAIFENESIN-CODEINE 10501158980 No Longer Activ e Blaine HERNANDEZ Active PROMETHAZINE-CODEINE 6.25-10 MG/5ML SYRP 1 tsp by mout h every 6 hours if needed for cough PROMETHAZINE-CODEINE 72615395175 No Long er Active Blaine HERNANDEZ Active CHERATUSSIN AC 100-10 MG/5ML SYRP 1 tsp by mouth every 4 hours as needed for cough GUAIFENESIN-CODEINE 19335787806 No Longer Activ e Blaine HERNANDEZ Active ZITHROMAX Z-REYNA 250 MG TABS 2 today, then 1 daily for 4 days 201 08/30/03 AZITHROMYCIN 30875710581 No Longer Active Columba Raida Act nael ZITHROMAX 250 MG TAB 2 po today, then 1 po q days 2-5 AZITHROMYCIN 93377757952 No Longer Active Carlton Hu MD Acti ve ZITHROMAX Z-REYNA 250 MG TABS 2 today, then 1 daily for 4 days 201 08/07/20 AZITHROMYCIN 54059314614 No Longer Active Columba Raida Act nael AUGMENTIN 875-125 MG TAB 1 po BID x 10 days AMOXICILLIN- POT CLAVULANATE 75482721862 No Longer Active 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 ZITHROMAX 250 MG TAB 2 po today, then 1 po q days 2-5 AZITHROMYCIN 79858437013 No Longer Active Carlton hall TRAMADOL HCL 50 MG TABS 1 po tid with ES Tylenol TRAMADOL HCL 59170366821 Active Carlton Hu MD Active PREMARIN 0.625 MG TABS TAKE 1 TAB BY MOUTH DAILY 07/25 ESTROGENS CONJUGATED 20561674106 No Longer Active Ridge Bess DO Active CYMBALTA 30 MG CPEP 1 cap by mouth daily DULOXE SNEHA HCL 80366046663 No Longer Active Ridge Bess DO Active AMOXICILLIN 500 MG CAP 1 tab by mouth 3 times daily x 10 days 20 14/04/28 AMOXICILLIN 54493226302 No Longer Active Carlton Hu MD Active AMOXICILLIN 500 MG CAP 1 tab by mouth 3 times daily x 10 days 20 13/03/08 AMOXICILLIN 33986210429 No Longer Active Carlton Hu MD Active PROMETHAZINE-CODEINE 6.25-10 MG/5ML SYRP 1 tsp by mouth ever y 8 hours prn cough PROMETHAZINE-CODEINE 39193228042 No Longer Active Robert Hu MD Active MEDROL (REYNA) 4 MG TABS 6 pills x 1 day, then 5 pill s x 1 day then 4 pills x 1 day, then 3 pills x 1 day, then 2 pills x 1 day, then 1 pill x 1 day, then stop METHYLPREDNISOLONE 42511271712 No Longer Active Parris Mora MD Active AZITHROMYCIN 250 MG TABS 2 po qd x 1 day, then 1 po qd x 4 days AZITHROMYCIN 27640039719 No Longer Active Perez Mora MD Active SYMBICORT 160-4.5 MCG/ACT AERO 2 puffs bid with rinse after 2011 BUDESONIDE-FORMOTEROL FUMARATE 13149890480 No Longer Active Perez Mora MD Active LYRICA 75 MG CAPS TAKE 1 CAPSULE BY MOUTH TWICE DAILY 2013 PREGABALIN 85364439801 No Longer Active Carlton Hu MD Active LYRICA 100 MG CAPS Take 1 tab po BID for fibromyalgia PREGABALIN 07005042280 Active Elise Whitmore APRN Active TOPAMAX 25 MG TABS 1 qHS x 1 week, then 1 BID x 1 week, then 1 qAM and 2 qHS x 1 week, then 2 BID (migraine prevention) TOPIRAMAT E 16682673230 No Longer Active Jerica Gomerissaer RMA Active TOPAMAX 50 MG TABS take 1 tab po BID for migraines. 12/07/10 TOPIRAMATE 46299088076 No Longer Active Jerica Goeringer RMA Ac tive TOPAMAX 100 MG TABS Take 1 tablet po bid TOPIRAMATE 4999 0307126 Active Carlton Hu MD Active TRIAMCINOLONE ACETONIDE 0.1 % CREA apply three times daily prn r beatrice TRIAMCINOLONE ACETONIDE 12067945879 No Longer Active Carlton Hu MD Active PAXIL 40 MG TAB take 1 tab po qday for depression PAROXETINE HCL 99430894236 Active Elise Whitmore APRN Active CHERATUSSIN AC 100-10 MG/5ML SYRP 5ml po q6hr PRN Cough GUAIFENESIN-CODEINE 00481066422 No Longer Active Carlton Hu MD Active MEDROL (REYNA) 4 MG TABS 6 tabs on day 1, 5 tabs on d ay 2, 4 tabs on day 3, 3 tabs on day 4, 2 tabs on day 5, 1 tab on day 6 METHYLPREDNISOLONE 31373438803 No Longer Active Perez Mora MD Active AZITHROMYCIN 250 MG TABS 2 po qd x 1 day, then 1 po qd x 4 days AZITHROMYCIN 84562421460 No Longer Active Perez Mora MD Active PROPRANOLOL HCL 60 MG TABS 1 PO Q D PROPRANOL OL HCL 78272854146 No Longer Active Perez Mora MD Active CHERATUSSIN AC 100-10 MG/5ML SYRP take one tsp po Q 6hours prn c ough GUAIFENESIN-CODEINE 67830077075 No Longer Active Perez Means Active AUGMENTIN 875-125 MG TAB 1 tab by mouth twice daily with food 20 12/03/31 AMOXICILLIN-POT CLAVULANATE 56541104125 No Longer Active Chanel Mora MD Active CHERATUSSIN AC 100-10 MG/5ML SYRP 1 tsp by mouth every 4 hours as needed for cough GUAIFENESIN-CODEINE 48205722255 No Longer Activ e Hugo Restrepo MD Active ACETAMINOPHEN-CODEINE #3 300-30 MG TABS 1 PO Q 4-6 HRS PRN PAIN ACETAMINOPHEN-CODEINE 74124277726 No Longer Active Hugo Restrepo MD Active LEVAQUIN 500 MG TABS take one po QD LEVOFLOXACI N 43885890181 No Longer Active Griffin HERNANDEZ Active PREDNISONE 20 MG TAB Take 3 tabs daily for 3 days , 2 tabs daily for 3 days, 1 tab daily for 3 days, 1/2 tab daily for 3 days P REDNISONE 78580163032 No Longer Active Carlton Hu MD Active AVELOX 400 MG TABS 1 tab by mouth daily MOXIFLO XACIN HCL 09952970767 No Longer Active Carlton Hu MD Active CHERATUSSIN AC 100-10 MG/5ML SYRP 1 tsp by mouth every 4 hours as needed for cough GUAIFENESIN-CODEINE 82175744313 No Longer Activ e Hugo Restrepo MD Active AVELOX 400 MG TABS 1 tab by mouth daily MOXIFLO XACIN HCL 12448720682 No Longer Active Marcy De La Rosa MD PhD Active TERBINAFINE HCL 250 MG TABS 1 qDay TERBINAF INE HCL 77122786732 No Longer Active Marcy De La Rosa MD PhD Active CHERATUSSIN AC 100-10 MG/5ML SYRP 1 tsp by mouth every 4 hours as needed for cough GUAIFENESIN-CODEINE 90810646882 No Longer Activ e Marcy De La Rosa MD PhD Active AVELOX 400 MG TABS 1 tab by mouth daily MOXIFLO XACIN HCL 13772835362 No Longer Active Marcy De La Rosa MD PhD Active HYDROCODONE-ACETAMINOPHEN 5-325 MG TABS 1 po q 6hr PRN cough 201 05/09/16 HYDROCODONE-ACETAMINOPHEN 69579991998 No Longer Active Marcy De La Rosa MD PhD Active PREDNISONE 20 MG TAB 2 tabs daily for 3 days, 1 t ab daily for 3 days, 1/2 tab daily for 2 days PREDNISONE 71412692865 No Longer Active Carlton Hu MD Active CEFDINIR 300 MG CAPS by mouth twice a day CEFDI ODILIA 24530678252 No Longer Active Carlton Hu MD Active HYDROCHLOROTHIAZIDE 25 MG TABS 1 TAB PO DAILY H YDROCHLOROTHIAZIDE 80730081758 Active Carlton Hu MD Active ACETAMINOPHEN-CODEINE #3 300-30 MG TABS 1 tablet po q 4-6hrs prn pain ACETAMINOPHEN-CODEINE 15117372880 No Longer Active Ridge Bess DO Active ZITHROMAX 250 MG TAB 2 po today, then 1 po q days 2-5 AZITHROMYCIN 44476053463 No Longer Active Carlton Hu MD Acti ve CHERATUSSIN AC 100-10 MG/5ML SYRP take 1 tsp po q4-6 hours prn c ough GUAIFENESIN-CODEINE 19295730191 No Longer Active Carlton Hu MD Active ACETAMINOPHEN-CODEINE #3 300-30 MG TABS 1 PO Q 4-6 HR PRN PAIN 2 ACETAMINOPHEN-CODEINE 15353850705 No Longer Active Carlton rich MD Active LORTAB 7.5-500 MG/15ML ELIX 7.5 ml po q 4 hour prn cough HYDROCODONE-ACETAMINOPHEN 54735431123 No Longer Active Carlton Hu MD Active PREDNISONE 20 MG TAB 1 po bid 3 days, then 1 po q day 3 days 201 05/03/07 PREDNISONE 10571614142 No Longer Active Carlton Hu MD Active ELMIRON 100 MG CAPS 2 tablets in the am and 1 tablet at hs PENTOSAN POLYSULFATE SODIUM 39769503111 Active Carlton Hu MD Ac tive CEFDINIR 300 MG CAPS by mouth twice a day CEFDI ODILIA 91521998488 No Longer Active Carlton Hu MD Active CEFDINIR 300 MG CAPS by mouth twice a day CEFDI ODILIA 10031772143 No Longer Active Carlton Hu MD Active CEFDINIR 300 MG CAPS by mouth twice a day CEFDI ODILIA 47805045488 No Longer Active Carlton Hu MD Active TESSALON PERLES 100 MG CAP 1 tablet by mouth 3 times daily a s needed for cough BENZONATATE 83519594801 No Longer Active Carlton bustamante MD Active CEFDINIR 300 MG CAPS by mouth twice a day CEFDI ODILIA 63699210133 No Longer Active Carlton Hu MD Active ZITHROMAX Z-REYNA 250 MG TABS 2 today, then 1 daily for 4 days 201 04/09/17 AZITHROMYCIN 84985476108 No Longer Active Hugo Restrepo MD Active TESSALON PERLES 100 MG CAP 1 tablet by mouth 3 times daily a s needed for cough TESSALON PERLES 100 MG CAP 160887 BENZONATATE I nactive PREDNISONE 20 MG TAB 1 po bid 3 days, then 1 po q day 3 days 201 05/03/07 PREDNISONE 20 MG TAB 407476 PREDNISONE Inactive LORTAB 7.5-500 MG/15ML ELIX 7.5 ml po q 4 hour prn cough LORTAB 7.5-500 MG/15ML ELIX HYDROCODONE-ACETAMINOPHEN Inacti ve ACETAMINOPHEN-CODEINE #3 300-30 MG TABS 1 PO Q 4-6 HR PRN PAIN 2 ACETAMINOPHEN-CODEINE #3 300-30 MG TABS 108125 ACETAMIN OPHEN-CODEINE Inactive CHERATUSSIN AC 100-10 MG/5ML SYRP take 1 tsp po q4-6 hours prn c ough CHERATUSSIN AC 100-10 MG/5ML SYRP 724162 GUAIFENESIN-CO DEINE Inactive ACETAMINOPHEN-CODEINE #3 300-30 MG TABS 1 tablet po q 4-6hrs prn pain ACETAMINOPHEN-CODEINE #3 300-30 MG TABS 415424 ACETAMIN OPHEN-CODEINE Inactive HYDROCODONE-ACETAMINOPHEN 5-325 MG TABS 1 po q 6hr PRN cough 201 05/09/16 HYDROCODONE-ACETAMINOPHEN 5-325 MG TABS 040744 HYDROCODONE-ACETAMINOPHEN Inactive AVELOX 400 MG TABS 1 tab by mouth daily A VELOX 400 MG TABS 605444 MOXIFLOXACIN HCL Inactive CHERATUSSIN AC 100-10 MG/5ML SYRP 1 tsp by mouth every 4 hours as needed for cough CHERATUSSIN AC 100-10 MG/5ML SYRP 391376 GUAIFENESIN-CODEINE Inactive TERBINAFINE HCL 250 MG TABS 1 qDay TERBINAFINE HCL 250 MG TABS 569662 TERBINAFINE HCL Inactive CHERATUSSIN AC 100-10 MG/5ML SYRP 1 tsp by mouth every 4 hours as needed for cough CHERATUSSIN AC 100-10 MG/5ML SYRP 234696 GUAIFENESIN-CODEINE Inactive ACETAMINOPHEN-CODEINE #3 300-30 MG TABS 1 PO Q 4-6 HRS PRN PAIN ACETAMINOPHEN-CODEINE #3 300-30 MG TABS 204932 ACETAMINOPHEN-CODEIN E Inactive CHERATUSSIN AC 100-10 MG/5ML SYRP 1 tsp by mouth every 4 hours as needed for cough CHERATUSSIN AC 100-10 MG/5ML SYRP 611866 GUAIFENESIN-CODEINE Inactive AUGMENTIN 875-125 MG TAB 1 tab by mouth twice daily with food 20 12/03/31 AUGMENTIN 875-125 MG TAB 326324 AMOXICILLIN-POT CLAVULA EFE Inactive CHERATUSSIN AC 100-10 MG/5ML SYRP take one tsp po Q 6hours prn c ough CHERATUSSIN AC 100-10 MG/5ML SYRP 450966 GUAIFENESIN-CO DEINE Inactive PROPRANOLOL HCL 60 MG TABS 1 PO Q D P ROPRANOLOL HCL 60 MG TABS 806576 PROPRANOLOL HCL Inactive TOPAMAX 50 MG TABS take 1 tab po BID for migraines. 12/07/10 TOPAMAX 50 MG TABS 778928 TOPIRAMATE Inactive TOPAMAX 25 MG TABS 1 qHS x 1 week, then 1 BID x 1 week, then 1 qAM and 2 qHS x 1 week, then 2 BID (migraine prevention) TOPAMAX 2 5 MG TABS 131703 TOPIRAMATE Inactive LYRICA 75 MG CAPS TAKE 1 CAPSULE BY MOUTH TWICE DAILY LYRICA 75 MG CAPS PREGABALIN Inactive SYMBICORT 160-4.5 MCG/ACT AERO 2 puffs bid with rinse after 2011 SYMBICORT 160-4.5 MCG/ACT AERO BUDESONIDE-FORMOT SÁNCHEZ FUMARATE Inactive PROMETHAZINE-CODEINE 6.25-10 MG/5ML SYRP 1 tsp by mouth ever y 8 hours prn cough PROMETHAZINE-CODEINE 6.25-10 MG/5ML SYRP 783049 PROMETHAZINE-CODEINE Inactive CYMBALTA 30 MG CPEP 1 cap by mouth daily CYMBALTA 30 MG CPEP 798338 DULOXETINE HCL Inactive PREMARIN 0.625 MG TABS TAKE 1 TAB BY MOUTH DAILY 07/25 PREMARIN 0.625 MG TABS ESTROGENS CONJUGATED Inactive CHERATUSSIN AC 100-10 MG/5ML SYRP 1 tsp by mouth every 4 hours as needed for cough CHERATUSSIN AC 100-10 MG/5ML SYRP 229681 GUAIFENESIN-CODEINE Inactive PROMETHAZINE-CODEINE 6.25-10 MG/5ML SYRP 1 tsp by mout h every 6 hours if needed for cough PROMETHAZINE-CODEINE 6.25-10 MG/5ML SYRP 772144 PROMETHAZINE-CODEINE Inactive CHERATUSSIN AC 100-10 MG/5ML SYRP 1 tsp by mouth every 4 hours as needed for cough CHERATUSSIN AC 100-10 MG/5ML SYRP 415534 GUAIFENESIN-CODEINE Inactive FLUTICASONE PROPIONATE 50 MCG/ACT SUSP 1 to 2 sprays each no stril daily FLUTICASONE PROPIONATE 50 MCG/ACT SUSP 5413589 FLUTICASONE PROPIONATE Inactive PREDNISONE 20 MG ORAL TABS 3 tab PO qd x 2d, 2 tab PO qd x 2d, 1 tab PO qd x 2d, 1/2 tab PO qd x 2d PREDNISONE 20 MG ORAL TABS 088219 PREDNISONE Inactive LEVOFLOXACIN 500 MG ORAL TABS 1 tab PO daily x 10 days LEVOFLOXACIN 500 MG ORAL TABS 506711 LEVOFLOXACIN Inactive CYCLOBENZAPRINE HCL 10 MG TABS 1 tablet by mouth BID prn had cherelle n CYCLOBENZAPRINE HCL 10 MG TABS 457423 CYCLOBENZAPRINE H CL Inactive ZOCOR 40 MG TAB 1 tab by mouth daily ZOCOR 40 M G TAB 214246 SIMVASTATIN Inactive ZITHROMAX Z-REYNA 250 MG TABS 2 today, then 1 daily for 4 days 201 04/09/17 ZITHROMAX Z-REYNA 250 MG TABS 9003651 AZITHROMYCIN Inac tive CEFDINIR 300 MG CAPS [...] q days 2-5 ZITHROMAX 250 MG TAB 4943868 AZITHROMYCIN Inactive CEFDINIR 300 MG CAPS by mouth twice a day CEFDINIR 300 MG CAPS 20020704 CEFDINIR Inactive PREDNISONE 20 MG TAB 2 tabs daily for 3 days, 1 t ab daily for 3 days, 1/2 tab daily for 2 days PREDNISONE 20 MG TAB 001431 PREDNISON E Inactive AVELOX 400 MG TABS 1 tab by mouth daily A VELOX 400 MG TABS 420985 MOXIFLOXACIN HCL Inactive AVELOX 400 MG TABS 1 tab by mouth daily A VELOX 400 MG TABS 768891 MOXIFLOXACIN HCL Inactive PREDNISONE 20 MG TAB Take 3 tabs daily for 3 days , 2 tabs daily for 3 days, 1 tab daily for 3 days, 1/2 tab daily for 3 days PREDNISONE 20 MG TAB 215418 PREDNISONE Inactive LEVAQUIN 500 MG TABS take one po QD LEVAQUIN 50 0 MG TABS 658489 LEVOFLOXACIN Inactive AZITHROMYCIN 250 MG TABS 2 po qd x 1 day, then 1 po qd x 4 days AZITHROMYCIN 250 MG TABS 1270031 AZITHROMYCIN Inactiv e MEDROL (REYNA) 4 MG TABS 6 tabs on day 1, 5 tabs on d ay 2, 4 tabs on day 3, 3 tabs on day 4, 2 tabs on day 5, 1 tab on day 6 MEDROL (REYNA) 4 MG TABS 960819 METHYLPREDNISOLONE Inactive CHERATUSSIN AC 100-10 MG/5ML SYRP 5ml po q6hr PRN Cough CHERATUSSIN AC 100-10 MG/5ML SYRP 131695 GUAIFENESIN-CODEINE Inacti ve TRIAMCINOLONE ACETONIDE 0.1 % CREA apply three times daily prn r beatrice TRIAMCINOLONE ACETONIDE 0.1 % CREA 6951667 TRIAMCINOLONE ACETONIDE Inactive AZITHROMYCIN 250 MG TABS 2 po qd x 1 day, then 1 po qd x 4 days AZITHROMYCIN 250 MG TABS 6555970 AZITHROMYCIN Inactiv e MEDROL (REYNA) 4 MG TABS 6 pills x 1 day, then 5 pill s x 1 day then 4 pills x 1 day, then 3 pills x 1 day, then 2 pills x 1 day, then 1 pill x 1 day, then stop MEDROL (REYNA) 4 MG TABS 609840 METHYLPREDNISOLONE Inactive AMOXICILLIN 500 MG CAP 1 tab by mouth 3 times daily x 10 days 20 13/03/08 AMOXICILLIN 500 MG CAP 570083 AMOXICILLIN Inactive AMOXICILLIN 500 MG CAP 1 tab by mouth 3 times daily x 10 days 20 14/04/28 AMOXICILLIN 500 MG CAP 285370 AMOXICILLIN Inactive ZITHROMAX 250 MG TAB 2 po today, then 1 po q days 2-5 ZITHROMAX 250 MG TAB 1877086 AZITHROMYCIN Inactive AUGMENTIN 875-125 MG TAB 1 po BID x 10 days AUGMENTIN 875- 125 MG TAB 832593 AMOXICILLIN-POT CLAVULANATE Inactive ZITHROMAX Z-REYNA 250 MG TABS 2 today, then 1 daily for 4 days 201 08/07/20 ZITHROMAX Z-REYNA 250 MG TABS 0305364 AZITHROMYCIN Inac tive ZITHROMAX 250 MG TAB 2 po today, then 1 po q days 2-5 ZITHROMAX 250 MG TAB 1970438 AZITHROMYCIN Inactive ZITHROMAX Z-REYNA 250 MG TABS 2 today, then 1 daily for 4 days 201 08/30/03 ZITHROMAX Z-REYNA 250 MG TABS 4664998 AZITHROMYCIN Inac tive CEFDINIR 300 MG CAPS 1 po BID x 10 days C EFDINIR 300 MG CAPS 984397 CEFDINIR Inactive ZITHROMAX 250 MG TAB 2 po today, then 1 po q days 2-5 ZITHROMAX 250 MG TAB 1401570 AZITHROMYCIN Inactive LEVAQUIN 500 MG TAB 1 tablet by mouth daily LEVAQUIN 500 MG TAB 884219 LEVOFLOXACIN Inactive Vital Signs Date Name Value Unit Range Description blood pressure, diastolic - 8462-4 67 mm[Hg] BP sriniavsan blood pressure, systolic - 8480-6 100 mm[Hg] [...] Measured Encounters Code Encounter Date Provider Facility CPT-01899 Level 3 Est. Patient 10:11:46 CDT Carlton rich MD [facility] CPT-03020 Level 3 Est. Patient 17:29:43 CDT Italo [facility] CPT-56102 Level 3 Est. Patient 11:58:06 CDT Italo [facility] CPT-47359 Level 4 Est. Patient 14:36:51 CDT Carlton rich MD [facility] CPT-49178 Level 3 Est. Patient 18:16:00 MAPPING ANALYST Blaine Freeman [facility] CPT-88463 Level 3 Est. Patient 09:45:49 MAPPING ANALYST Carlton rich MD [facility] CPT-85139 Level 3 Est. Patient 13:19:20 CDT Carlton rich MD [facility] CPT-26726 Level 3 Est. Patient 13:06:43 CDT Ridge tam DO [facility] CPT-31811 Level 3 Est. Patient 10:03:07 CDT Perez Mora MD [facility] CPT-92212 Level 3 Est. Patient 19:50:35 MAPPING ANALYST Carlton rich MD [facility] CPT-68510 Level 4 Est. Patient 18:05:01 MAPPING ANALYST Carlton rich MD [facility] CPT-32472 Level 3 Est. Patient 10:45:55 MAPPING ANALYST Hugo Restrepo MD [facility] CPT-75435 Level 3 Est. Patient 14:12:49 CDT Griffin lincoln [facility] CPT-85651 Level 3 Est. Patient 17:37:24 CDT Carlton rich MD [facility] CPT-39704 Level 3 Est. Patient 16:51:54 CDT Carlton rich MD [facility] CPT-14322 Level 3 Est. Patient 12:18:11 CDT Hugo Restrepo MD [facility]-49647 Level 3 Est. Patient 11:30:25 CDT Marcy crisostomo MD PhD [facility] CPT-66416 Level 3 Est. Patient 12:00:47 MAPPING ANALYST Carlton rich MD [facility] CPT-56013 Level 3 Est. Patient 16:31:06 MAPPING ANALYST Carlton rich MD [facility] CPT-63228 Level 3 Est. Patient 16:23:24 MAPPING ANALYST Ridge tam [facility] CPT-92465 Level 3 Est. Patient 12:34:12 CDT Carlton rich MD [facility] CPT-40158 Level 2 Est. Patient 15:43:33 CDT Robi armstrong MD [facility] CPT-03593 Level 4 Est. Patient 14:04:44 CDT Carlton rich MD [facility] CPT-31766 Level 3 Est. Patient 05:47:59 CDT Ridge atm [facility] CPT-36570 Level 3 Est. Patient 13:12:53 MAPPING ANALYST Carlton rich MD [facility] CPT-04036 Level 3 Est. Patient 14:26:53 CDT Hugo Restrepo MD [facility] Procedures Code Procedure Name Date Entry Date Standard Desc ription CPT-J0696 Rocephin 1gm Inj Solr 14:32:13 CDT CPT-J1020 Depo Medrol 60 mg (Methyl Prednisolone A cetate) 14:32:13 CDT CPT-J1100 Decadron 6mg (Dexamethasone) 14:32:13 CDT 2 CPT-31515 Hip bilat min 2V w AP pelvis 13:16:20 CDT 2 CPT-74357 Pelvis only 13:07:33 CDT CPT-59334 Spec Collection and Handling Fee 11:25:12 C DT CPT-37613 Fluzone Quadrivalent Intramuscular Suspe nsion 0.5 ML 14:31:55 CDT CPT-40184 Abx/Therapy Injection 13:28:47 MAPPING ANALYST CPT-J2930 Solu Medrol 125 mg (Methyl Prednisolone Sodium Succinate) 12:00:47 MAPPING ANALYST CPT-76657 Venipuncture Draw Fee 11:33:31 CDT CPT-55479 EKG Trac and Interp 11:21:09 CDT CPT-06022 Chest 2V Frontal and Lat 11:21:09 CDT 12/15 CPT-71954 Venipuncture Draw Fee 08:02:34 CDT CPT-43966 Chest 2V Frontal and Lat 05:47:59 CDT 06/05
--- OUTSIDE RECORDS SUMMARY | 2019-10-08 08:42 | XMS REPORT | Clinical Summary ---
[...] then 1 po q days 2-5 AZITHROMYCIN [id number] No Longer Active Carlton Hu MD Acti ve TRAMADOL HCL 50 MG TABS 1 po tid with ES Tylenol TRAMADOL HCL 04332490287 Active Carlton Hu MD Active PREMARIN 0.625 MG TABS TAKE 1 TAB BY MOUTH DAILY 07/25 ESTROGENS CONJUGATED 71287012673 No Longer Active Ridge Bess DO Active CYMBALTA 30 MG CPEP 1 cap by mouth daily DULOXE SNEHA HCL 16391607089 No Longer Active Ridge Bess DO Active AMOXICILLIN 500 MG CAP 1 tab by mouth 3 times daily x 10 days 20 14/04/28 AMOXICILLIN 51930578048 No Longer Active Carlton Hu MD Active AMOXICILLIN 500 MG CAP 1 tab by mouth 3 times daily x 10 days 20 13/03/08 AMOXICILLIN 26250485520 No Longer Active Carlton Hu MD Active CHERATUSSIN AC 100-10 MG/5ML SYRP 1 tsp by mouth every 4 hours as needed for cough GUAIFENESIN-CODEINE 40726860923 Active Carlton banks MD Active CYCLOBENZAPRINE HCL 10 MG TABS 1 tablet by mouth BID prn had pain 2 CYCLOBENZAPRINE HCL 52755560835 Active Carlton Hu MD A ctive PROMETHAZINE-CODEINE 6.25-10 MG/5ML SYRP 1 tsp by mouth ever y 8 hours prn cough PROMETHAZINE-CODEINE 90784641442 No Longer Active Robert jade Hu MD Active MEDROL (REYNA) 4 MG TABS 6 pills x 1 day, then 5 pill s x 1 day then 4 pills x 1 day, then 3 pills x 1 day, then 2 pills x 1 day, then 1 pill x 1 day, then stop METHYLPREDNISOLONE 86452374735 No Longer Active Parris Mora MD Active AZITHROMYCIN 250 MG TABS 2 po qd x 1 day, then 1 po qd x 4 days AZITHROMYCIN 29892475235 No Longer Active Perez Mora MD Active SYMBICORT 160-4.5 MCG/ACT AERO 2 puffs bid with rinse after 2011 BUDESONIDE-FORMOTEROL FUMARATE 13548502758 No Longer Active Perez Mora MD Active LYRICA 75 MG CAPS TAKE 1 CAPSULE BY MOUTH TWICE DAILY 2013 PREGABALIN 54564492629 No Longer Active Carlton Hu MD Active LYRICA 100 MG CAPS Take 1 tab po BID for fibromyalgia PREGABALIN 80511471038 Active Kavya Arambula MA Active TOPAMAX 25 MG TABS 1 qHS x 1 week, then 1 BID x 1 week, then 1 qAM and 2 qHS x 1 week, then 2 BID (migraine prevention) TOPIRAMAT E 07269429347 No Longer Active Jericacatrachita FUENTES Active TOPAMAX 50 MG TABS take 1 tab po BID for migraines. 12/07/10 TOPIRAMATE 82870265365 No Longer Active Jerica Osei RMA Ac tive TOPAMAX 100 MG TABS Take 1 tablet po bid TOPIRAMATE 4999 1257685 Active Carlton Hu MD Active TRIAMCINOLONE ACETONIDE 0.1 % CREA apply three times daily prn r beatrice TRIAMCINOLONE ACETONIDE 03573879257 No Longer Active Carlton Hu MD Active PAXIL 40 MG TAB take 1 tab po qday for depression PAROXETINE HCL 94675682683 Active Carlton Hu MD Active CHERATUSSIN AC 100-10 MG/5ML SYRP 5ml po q6hr PRN Cough GUAIFENESIN-CODEINE 81882398054 No Longer Active Carlton Hu MD Active MEDROL (REYNA) 4 MG TABS 6 tabs on day 1, 5 tabs on d ay 2, 4 tabs on day 3, 3 tabs on day 4, 2 tabs on day 5, 1 tab on day 6 METHYLPREDNISOLONE 03438309080 No Longer Active Perez Mroa MD Active AZITHROMYCIN 250 MG TABS 2 po qd x 1 day, then 1 po qd x 4 days AZITHROMYCIN 61514410212 No Longer Active Perez Mora MD Active PROPRANOLOL HCL 60 MG TABS 1 PO Q D PROPRANOL OL HCL 72478653590 No Longer Active Perez Mora MD Active CHERATUSSIN AC 100-10 MG/5ML SYRP take one tsp po Q 6hours prn c ough GUAIFENESIN-CODEINE 66683025778 No Longer Active Perez Means Active AUGMENTIN 875-125 MG TAB 1 tab by mouth twice daily with food 20 12/03/31 AMOXICILLIN-POT CLAVULANATE 27044608179 No Longer Active Chanel Mora MD Active CHERATUSSIN AC 100-10 MG/5ML SYRP 1 tsp by mouth every 4 hours as needed for cough GUAIFENESIN-CODEINE 72797776365 No Longer Activ e Hugo Restrepo MD Active ACETAMINOPHEN-CODEINE #3 300-30 MG TABS 1 PO Q 4-6 HRS PRN PAIN ACETAMINOPHEN-CODEINE 91458095919 No Longer Active Hugo Restrepo MD Active LEVAQUIN 500 MG TABS take one po QD LEVOFLOXACI N 14043146704 No Longer Active Griffin HERNANDEZ Active PREDNISONE 20 MG TAB Take 3 tabs daily for 3 days , 2 tabs daily for 3 days, 1 tab daily for 3 days, 1/2 tab daily for 3 days P REDNISONE 57163984852 No Longer Active Carlton Hu MD Active AVELOX 400 MG TABS 1 tab by mouth daily MOXIFLO XACIN HCL 91784471816 No Longer Active Carlton Hu MD Active CHERATUSSIN AC 100-10 MG/5ML SYRP 1 tsp by mouth every 4 hours as needed for cough GUAIFENESIN-CODEINE 26037172564 No Longer Activ e Hugo Restrepo MD Active AVELOX 400 MG TABS 1 tab by mouth daily MOXIFLO XACIN HCL 98880644564 No Longer Active Marcy De La Rosa MD PhD Active TERBINAFINE HCL 250 MG TABS 1 qDay TERBINAF INE HCL 25464341375 No Longer Active Marcy De La Rosa MD PhD Active CHERATUSSIN AC 100-10 MG/5ML SYRP 1 tsp by mouth every 4 hours as needed for cough GUAIFENESIN-CODEINE 38964082264 No Longer Activ e Marcy De La Rosa MD PhD Active AVELOX 400 MG TABS 1 tab by mouth daily MOXIFLO XACIN HCL 04246031064 No Longer Active Marcy De La Rosa MD PhD Active HYDROCODONE-ACETAMINOPHEN 5-325 MG TABS 1 po q 6hr PRN cough 201 05/09/16 HYDROCODONE-ACETAMINOPHEN 43306228610 No Longer Active Marcy De La Rosa MD PhD Active PREDNISONE 20 MG TAB 2 tabs daily for 3 days, 1 t ab daily for 3 days, 1/2 tab daily for 2 days PREDNISONE 87779536465 No Longer Active Carlton Hu MD Active CEFDINIR 300 MG CAPS by mouth twice a day CEFDI ODILIA 42141196461 No Longer Active Carlton Hu MD Active ZOCOR 40 MG TAB 1 tab by mouth daily SIMVASTATIN 74403306847 Active Carlton Hu MD Active HYDROCHLOROTHIAZIDE 25 MG TABS 1 TAB PO DAILY H YDROCHLOROTHIAZIDE 67614957630 Active Carlton Hu MD Active ACETAMINOPHEN-CODEINE #3 300-30 MG TABS 1 tablet po q 4-6hrs prn pain ACETAMINOPHEN-CODEINE 85689407269 No Longer Active Ridge Bess DO Active ZITHROMAX 250 MG TAB 2 po today, then 1 po q days 2-5 AZITHROMYCIN 92780656909 No Longer Active Carlton Hu MD Acti ve CHERATUSSIN AC 100-10 MG/5ML SYRP take 1 tsp po q4-6 hours prn c ough GUAIFENESIN-CODEINE 13269830893 No Longer Active Carlton Hu MD Active ACETAMINOPHEN-CODEINE #3 300-30 MG TABS 1 PO Q 4-6 HR PRN PAIN 2 ACETAMINOPHEN-CODEINE 07400800005 No Longer Active Carlton rich MD Active LORTAB 7.5-500 MG/15ML ELIX 7.5 ml po q 4 hour prn cough HYDROCODONE-ACETAMINOPHEN 22924127888 No Longer Active Carlton Hu MD Active PREDNISONE 20 MG TAB 1 po bid 3 days, then 1 po q day 3 days 201 05/03/07 PREDNISONE 56110171632 No Longer Active Carlton Hu MD Active ELMIRON 100 MG CAPS 2 tablets in the am and 1 tablet at hs PENTOSAN POLYSULFATE SODIUM 81788116303 Active Graciemaximiliano Hernandezr Active CEFDINIR 300 MG CAPS by mouth twice a day CEFDI ODILIA 47468458181 No Longer Active Carlton Hu MD Active CEFDINIR 300 MG CAPS by mouth twice a day CEFDI ODILIA 43222076767 No Longer Active Carlton Hu MD Active CEFDINIR 300 MG CAPS by mouth twice a day CEFDI ODILIA 41875858890 No Longer Active Carlton Hu MD Active TESSALON PERLES 100 MG CAP 1 tablet by mouth 3 times daily a s needed for cough BENZONATATE 42004472794 No Longer Active Carlton bustamante MD Active CEFDINIR 300 MG CAPS by mouth twice a day CEFDI ODILIA 46040673518 No Longer Active Carlton Hu MD Active ZITHROMAX Z-REYNA 250 MG TABS 2 today, then 1 daily for 4 days 201 04/09/17 AZITHROMYCIN 02923604089 No Longer Active Hugo Restrepo MD Active TESSALON PERLES 100 MG CAP 1 tablet by mouth 3 times daily a s needed for cough TESSALON PERLES 100 MG CAP 832168 BENZONATATE I nactive PREDNISONE 20 MG TAB 1 po bid 3 days, then 1 po q day 3 days 201 05/03/07 PREDNISONE 20 MG TAB 894409 PREDNISONE Inactive LORTAB 7.5-500 MG/15ML ELIX 7.5 ml po q 4 hour prn cough LORTAB 7.5-500 MG/15ML ELIX HYDROCODONE-ACETAMINOPHEN Inacti ve ACETAMINOPHEN-CODEINE #3 300-30 MG TABS 1 PO Q 4-6 HR PRN PAIN 2 ACETAMINOPHEN-CODEINE #3 300-30 MG TABS 984280 ACETAMIN OPHEN-CODEINE Inactive CHERATUSSIN AC 100-10 MG/5ML SYRP take 1 tsp po q4-6 hours prn c ough CHERATUSSIN AC 100-10 MG/5ML SYRP 222430 GUAIFENESIN-CO DEINE Inactive ACETAMINOPHEN-CODEINE #3 300-30 MG TABS 1 tablet po q 4-6hrs prn pain ACETAMINOPHEN-CODEINE #3 300-30 MG TABS 357338 ACETAMIN OPHEN-CODEINE Inactive HYDROCODONE-ACETAMINOPHEN 5-325 MG TABS 1 po q 6hr PRN cough 201 05/09/16 HYDROCODONE-ACETAMINOPHEN 5-325 MG TABS 448606 HYDROCODONE-ACETAMINOPHEN Inactive AVELOX 400 MG TABS 1 tab by mouth daily A VELOX 400 MG TABS 432071 MOXIFLOXACIN HCL Inactive CHERATUSSIN AC 100-10 MG/5ML SYRP 1 tsp by mouth every 4 hours as needed for cough CHERATUSSIN AC 100-10 MG/5ML SYRP 250034 GUAIFENESIN-CODEINE Inactive TERBINAFINE HCL 250 MG TABS 1 qDay TERBINAFINE HCL 250 MG TABS 167202 TERBINAFINE HCL Inactive CHERATUSSIN AC 100-10 MG/5ML SYRP 1 tsp by mouth every 4 hours as needed for cough CHERATUSSIN AC 100-10 MG/5ML SYRP 043285 GUAIFENESIN-CODEINE Inactive ACETAMINOPHEN-CODEINE #3 300-30 MG TABS 1 PO Q 4-6 HRS PRN PAIN ACETAMINOPHEN-CODEINE #3 300-30 MG TABS 245984 ACETAMINOPHEN-CODEIN E Inactive CHERATUSSIN AC 100-10 MG/5ML SYRP 1 tsp by mouth every 4 hours as needed for cough CHERATUSSIN AC 100-10 MG/5ML SYRP 519580 GUAIFENESIN-CODEINE Inactive AUGMENTIN 875-125 MG TAB 1 tab by mouth twice daily with food 20 12/03/31 AUGMENTIN 875-125 MG TAB 330873 AMOXICILLIN-POT CLAVULA EFE Inactive CHERATUSSIN AC 100-10 MG/5ML SYRP take one tsp po Q 6hours prn c ough CHERATUSSIN AC 100-10 MG/5ML SYRP 139063 GUAIFENESIN-CO DEINE Inactive PROPRANOLOL HCL 60 MG TABS 1 PO Q D P ROPRANOLOL HCL 60 MG TABS 132062 PROPRANOLOL HCL Inactive TOPAMAX 50 MG TABS take 1 tab po BID for migraines. 12/07/10 TOPAMAX 50 MG TABS 289257 TOPIRAMATE Inactive TOPAMAX 25 MG TABS 1 qHS x 1 week, then 1 BID x 1 week, then 1 qAM and 2 qHS x 1 week, then 2 BID (migraine prevention) TOPAMAX 2 5 MG TABS 866904 TOPIRAMATE Inactive LYRICA 75 MG CAPS TAKE 1 CAPSULE BY MOUTH TWICE DAILY LYRICA 75 MG CAPS PREGABALIN Inactive SYMBICORT 160-4.5 MCG/ACT AERO 2 puffs bid with rinse after 2011 SYMBICORT 160-4.5 MCG/ACT AERO BUDESONIDE-FORMOT SÁNCHEZ FUMARATE Inactive PROMETHAZINE-CODEINE 6.25-10 MG/5ML SYRP 1 tsp by mouth ever y 8 hours prn cough PROMETHAZINE-CODEINE 6.25-10 MG/5ML SYRP 656980 PROMETHAZINE-CODEINE Inactive CYMBALTA 30 MG CPEP 1 cap by mouth daily CYMBALTA 30 MG CPEP 195700 DULOXETINE HCL Inactive PREMARIN 0.625 MG TABS TAKE 1 TAB BY MOUTH DAILY 07/25 PREMARIN 0.625 MG TABS ESTROGENS CONJUGATED Inactive ZITHROMAX Z-REYNA 250 MG TABS 2 today, then 1 daily for 4 days 201 04/09/17 ZITHROMAX Z-REYNA 250 MG TABS 3834780 AZITHROMYCIN Inac tive CEFDINIR 300 MG CAPS [...] q days 2-5 ZITHROMAX 250 MG TAB 2397085 AZITHROMYCIN Inactive CEFDINIR 300 MG CAPS by mouth twice a day CEFDINIR 300 MG CAPS 20020704 CEFDINIR Inactive PREDNISONE 20 MG TAB 2 tabs daily for 3 days, 1 t ab daily for 3 days, 1/2 tab daily for 2 days PREDNISONE 20 MG TAB 475819 PREDNISON E Inactive AVELOX 400 MG TABS 1 tab by mouth daily A VELOX 400 MG TABS 931374 MOXIFLOXACIN HCL Inactive AVELOX 400 MG TABS 1 tab by mouth daily A VELOX 400 MG TABS 715865 MOXIFLOXACIN HCL Inactive PREDNISONE 20 MG TAB Take 3 tabs daily for 3 days , 2 tabs daily for 3 days, 1 tab daily for 3 days, 1/2 tab daily for 3 days PREDNISONE 20 MG TAB 166918 PREDNISONE Inactive LEVAQUIN 500 MG TABS take one po QD LEVAQUIN 50 0 MG TABS 264329 LEVOFLOXACIN Inactive AZITHROMYCIN 250 MG TABS 2 po qd x 1 day, then 1 po qd x 4 days AZITHROMYCIN 250 MG TABS 7082720 AZITHROMYCIN Inactiv e MEDROL (REYNA) 4 MG TABS 6 tabs on day 1, 5 tabs on d ay 2, 4 tabs on day 3, 3 tabs on day 4, 2 tabs on day 5, 1 tab on day 6 MEDROL (REYNA) 4 MG TABS METHYLPREDNISOLONE Inactive CHERATUSSIN AC 100-10 MG/5ML SYRP 5ml po q6hr PRN Cough CHERATUSSIN AC 100-10 MG/5ML SYRP 581077 GUAIFENESIN-CODEINE Inacti ve TRIAMCINOLONE ACETONIDE 0.1 % CREA apply three times daily prn r beatrice TRIAMCINOLONE ACETONIDE 0.1 % CREA 3632462 TRIAMCINOLONE ACETONIDE Inactive AZITHROMYCIN 250 MG TABS 2 po qd x 1 day, then 1 po qd x 4 days AZITHROMYCIN 250 MG TABS 9972112 AZITHROMYCIN Inactiv e MEDROL (REYNA) 4 MG [...] days 20 13/03/08 AMOXICILLIN 500 MG CAP 562593 AMOXICILLIN Inactive AMOXICILLIN 500 MG CAP 1 tab by mouth 3 times daily x 10 days 20 14/04/28 AMOXICILLIN 500 MG CAP 435801 AMOXICILLIN Inactive ZITHROMAX 250 MG TAB 2 po today, then 1 po q days 2-5 ZITHROMAX 250 MG TAB 3410623 AZITHROMYCIN Inactive Vital Signs Date Name Value [...] [phone] Encounters Code Encounter Date Provider Facility CPT-92866 Level 3 Est. Patient 13:19:20 CDT Carlton rich MD [facility] CPT-95982 Level 3 Est. Patient 13:06:43 CDT Ridge tam DO [facility] CPT-40348 Level 3 Est. Patient 10:03:07 CDT Perez Mora MD [facility]-08671 Level 3 Est. Patient 19:50:35 LIGHT CLEANER Carlton rich MD [facility] CPT-89094 Level 4 Est. Patient 18:05:01 LIGHT CLEANER Cralton rich MD [facility] CPT-30455 Level 3 Est. Patient 10:45:55 LIGHT CLEANER Hugo Restrepo MD [facility]-72984 Level 3 Est. Patient 14:12:49 CDT Griffin HERNANDEZ [facility] CPT-82642 Level 3 Est. Patient 17:37:24 CDT Carlton rich MD [facility] CPT-75046 Level 3 Est. Patient 16:51:54 CDT Carlton rich MD [facility] CPT-03545 Level 3 Est. Patient 12:18:11 CDT Hugo Restrepo MD [facility]-88270 Level 3 Est. Patient 11:30:25 CDT Marcy crisostomo MD PhD [facility]-96293 Level 3 Est. Patient 12:00:47 LIGHT CLEANER Carlton rich MD [facility] CPT-98147 Level 3 Est. Patient 16:31:06 LIGHT CLEANER Carlton rich MD [facility] CPT-07733 Level 3 Est. Patient 16:23:24 LIGHT CLEANER Ridge tam [facility] CPT-79661 Level 3 Est. Patient 12:34:12 CDT Carlton rich MD [facility] CPT-10624 Level 2 Est. Patient 15:43:33 CDT Robi armstrong MD [facility] CPT-89999 Level 4 Est. Patient 14:04:44 CDT Carlton rich MD [facility] CPT-99031 Level 3 Est. Patient 05:47:59 CDT Ridge tam [facility] CPT-24069 Level 3 Est. Patient 13:12:53 LIGHT CLEANER Carlton rich MD [facility] CPT-77254 Level 3 Est. Patient 14:26:53 CDT Hugo Restrepo MD [facility] Procedures Code Procedure Name Date Entry Date Standard Desc ription CPT-59306 Hip bilat min 2V w AP pelvis 13:16:20 CDT 2 CPT-73405 Pelvis only 13:07:33 CDT CPT-10151 Spec Collection and Handling Fee 11:25:12 C DT CPT-29514 Fluzone Quadrivalent Intramuscular Suspe nsion 0.5 ML 14:31:55 CDT CPT-00198 Abx/Therapy Injection 13:28:47 LIGHT CLEANER CPT-J2930 Solu Medrol 125 mg (Methyl Prednisolone Sodium Succinate) 12:00:47 LIGHT CLEANER CPT-70892 Venipuncture Draw Fee 11:33:31 CDT CPT-71333 EKG Trac and Interp 11:21:09 CDT CPT-60150 Chest 2V Frontal and Lat 11:21:09 CDT 12/15 CPT-53974 Venipuncture Draw Fee 08:02:34 CDT CPT-69283 Chest 2V Frontal and Lat 05:47:59 CDT 06/05
--- OUTSIDE RECORDS SUMMARY | 2019-10-08 08:42 | XMS REPORT | Clinical Summary ---
Author Author Caitlin, Juliana Martinez Organization [facility] Address Unknown Phone Unavailable Allergies, Adverse Reactions, Alerts Allergy Name Reaction Description Start Date Severity Status Pr ovider No Known Allergies Leslie R obb RMA Conditions or Problems Problem Name Problem Code [...] Chronic maxillary sinusitis SEASONAL ALLERGIC RHINITIS 477.9 Resolved 9 Carlton Hu MD Allergic rhinitis, cause unspecified [...] Body Mass Index 35.0-35.9, adult BMI 35-35.9 Refinement 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 RICEN Body Mass Index 35.0-35.9, adult BMI 34-34.9 Refinement May Vivar MD Body Mass Index 35.0-35.9, adult BMI 35-35.9 Refinement 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 BROKERAGE CLERK Body Mass Index 35.0-35.9, adult BMI 33-33.9 Refinement 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 BROKERAGE CLERK Body Mass Index 35.0-35.9, adult BMI 34-34.9 Active 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 BROKERAGE CLERK Body Mass Index 35.0-35.9, adult Upper respiratory infection, viral 465.9 Active 2 Perez Mora MD Acute upper respiratory infections of un specified site Obesity Class I (BMI 30-34.9) Refinement Jose Torres RN Obesity, unspecified Morbid obesity due to excess calories Refinemen t 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 KHAN Obesity, unspecified Obesity Class II (BMI 35-39.9) Refinement Robert Hu MD Obesity, unspecified Obesity Class I (BMI 30-34.9) Refinement May Vivar MD Obesity, unspecified Obesity Class II (BMI 35-39.9) Refinement Brendon Lopes APRN Obesity, unspecified Obesity Class I (BMI 30-34.9) Active David T bandar KHAN Obesity, unspecified Hypertension, systolic 401.9 Active Carlton bustamante MD Unspecified essential hypertension Interstitial Cystitis 595.1 Active May lorenz MD Chronic interstitial cystitis Rash and other nonspecific skin eruption 782.1 Active 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 KHAN Rash and other nonspecific skin eruption Pharyngitis, acute / sore throat 462 Active 201 12/06/23 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 BROKERAGE CLERK Acute pharyngitis Shingles 053.9 Active 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 BROKERAGE CLERK Herpes zoster without mention of complication Allergic rhinitis, seasonal 477.0 Active Carlton Hu MD Allergic rhinitis due to pollen IBS (irritable bowel syndrome) 564.1 Active 01/06 Carlton Hu MD Irritable bowel syndrome GERD 530.81 Active Carlton Hu MD Esophageal reflux Cough, non-productive 786.2 Active David Lopes APRN Cough BRONCHITIS ICD-490 Inactive Hugo Restrepo MD 201 04/09/17 SEASONAL ALLERGIC RHINITIS ICD-477.9 Inactive Carlton Hu MD BRONCHITIS, ACUTE WITH MILD BRONCHOSPASM ICD-466.0 Inactive [...] PhD Sinusitis ICD-473.9 Inactive Hugo Restrepo MD Bronchitis-Acute ICD-466.0 Inactive Hugo dominguez MD URI - acute ICD-465.9 Inactive Hugo Restrepo MD Pharyngitis acute ICD-462 Inactive Hugo gore MD Rhinitis, acute ICD-460 Inactive Hugo Ochoa MD Sinusitis ICD-473.9 Inactive Hugo Restrepo MD Bronchitis ICD-490 Inactive Hugo Restrepo MD 201 10/02/29 URI ICD-465.9 Inactive Ridge Bess DO SINUSITIS, ACUTE ICD-461.9 Inactive Hugo dominguez MD Pelvic pain, acute ICD-789.09 Inactive Hugo Restrepo MD Medication List Medication Instructions Start Date Stop Date Generic Name NDC Status Provider Patient Instruction ELMIRON 100 MG ORAL CAPSULE TAKE 2 CAPSULES BY MOUTH I N THE MORNING AND 1 AT BEDTIME PENTOSAN POLYSULFATE SODIUM [id number] Active May Vivar MD Active TRAMADOL HCL 50 MG TABS TAKE 1 TABLET BY MOUTH THREE TIMES DAILY WITH EXTRA STRENGTH TYLENOL TRAMADOL HCL 78721563954 Active Jayden Hu MD Active AMOXICILLIN-POT CLAVULANATE 875-125 MG ORAL TABLET 1 pill by mouth twice daily AMOXICILLIN-POT CLAVULANATE 26903222912 No Longer Act nael David Lopes APRN Active PAXIL 40 MG ORAL TABLET take 1 tab po qday for depression 0 PAROXETINE HCL 77000504912 No Longer Active David Lopes APRN Acti ve ATORVASTATIN CALCIUM 10 MG ORAL TABLET 1 pill by mouth night ly, for cholesterol ATORVASTATIN CALCIUM 45866385732 No Longer Active Brendon Lopes APRN Active GUAIFENESIN-CODEINE 100-10 MG/5ML ORAL SYRUP 1 tsp PO q6h PRN co ugh GUAIFENESIN-CODEINE 48293941368 No Longer Active David Lopes APRN Active TOPIRAMATE 100 MG ORAL TABLET Take 1 tablet by mouth twice daily 19/04/21 TOPIRAMATE 79342420809 Active Carlton Hu MD Active PAROXETINE HCL 40 MG TABS TAKE 1 TABLET BY MOUTH ONCE DAILY FOR DEPRESSION PAROXETINE HCL 91697231212 Active Carlton Hu MD Active HYDROCHLOROTHIAZIDE 25 MG ORAL TABLET Take 1 tablet by mouth once daily HYDROCHLOROTHIAZIDE 30123896658 Active Carlton Hu MD Active AMOXICILLIN-POT CLAVULANATE 875-125 MG ORAL TABLET 1 pill by mouth twice daily AMOXICILLIN-POT CLAVULANATE 85162172377 No Longer Act nael David Lopes APRN Active DULOXETINE HCL 60 MG ORAL CAPSULE DELAYED RELEASE PART ICLES TAKE 1 CAPSULE BY MOUTH ONCE DAILY FOR PAIN AND MOOD DULOXETINE HCL 002 23352299 Active Carlton Hu MD Active ALPRAZOLAM 0.5 MG TABS TAKE 1 TABLET BY MOUTH ONCE DAILY NEEDED ALPRAZOLAM 02289862621 Active Carlton Hu MD Active GABAPENTIN 100 MG ORAL CAPSULE TAKE 1 CAPSULE BY MOUTH TWICE DAILY FOR FIBROMYALGIA GABAPENTIN 11932851502 Active Carlton Hu MD Active TRIAMCINOLONE ACETONIDE 0.1 % EXTERNAL CREAM apply bid spari ngly to rash TRIAMCINOLONE ACETONIDE 31136874847 No Longer Active Carlton Hu MD Active TYLENOL WITH CODEINE #3 300-30 MG ORAL TABLET ACETAMINOPHEN-CODEINE 87699254664 No Longer Active Carlton Hu MD Active TYLENOL WITH CODEINE #3 300-30 MG ORAL TABLET 1-2 po q6hr PRN Pa in ACETAMINOPHEN-CODEINE 00182719575 No Longer Active David HERNANDEZ RN Active ACYCLOVIR 800 MG ORAL TABLET 1 po 5 times daily x 7 days ACYCLOVIR 86320300063 No Longer Active 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 BROKERAGE CLERK Active TOPAMAX 100 MG ORAL TABLET 1 by mouth twice daily TOPIRAMATE 40756344322 Active Carlton Hu MD Active TRIAMCINOLONE ACETONIDE 0.1 % EXTERNAL OINTMENT Apply to affected areas TID PRN Rash/Itching for up 2 weeks TRIAMCINOLONE ACETON KAYLA 50213681898 No Longer Active 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 BROKERAGE CLERK Active AMOXICILLIN 500 MG ORAL CAPSULE 1 cap by mouth twice daily 10/21 AMOXICILLIN 66326834441 No Longer Active 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 BROKERAGE CLERK Active CYMBALTA 30 MG ORAL CAPSULE DELAYED RELEASE PARTICLES 1 cap by mouth daily for depression DULOXETINE HCL 94057478038 No Longer Active Carlton Hu MD Active TUSSIONEX PENNKINETIC ER 10-8 MG/5ML ORAL SUSPENSION E XTENDED RELEASE 5ml po q12hr PRN Cough HYDROCOD POLST-CHLORPHEN POLST 83068081132 Active 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 BROKERAGE CLERK Active PREDNISONE 20 MG ORAL TABLET Take 2 tabs day 1 and 2 and 1 t ab days 3 and 4 PREDNISONE 55771003927 No Longer Active 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 BROKERAGE CLERK Active DOXYCYCLINE HYCLATE 100 MG ORAL CAPSULE 1 cap by mouth twice latasha ly DOXYCYCLINE HYCLATE 70668217118 No Longer Active 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 BROKERAGE CLERK Active TOPAMAX 100 MG ORAL TABLET Take 1 tablet po bid TOPIRAMATE 23746504574 No Longer Active 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 BROKERAGE CLERK Active TUSSIONEX PENNKINETIC ER 10-8 MG/5ML ORAL SUSPENSION E XTENDED RELEASE 5ml po q12hr PRN Cough HYDROCOD POLST-CHLORPHEN POLST 5 8787856475 No Longer Active 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 BROKERAGE CLERK Active AUGMENTIN 875-125 MG ORAL TABLET 1 po BID x 10 days 18/04/16 AMOXICILLIN-POT CLAVULANATE 19631830845 No Longer Active 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 BROKERAGE CLERK Active PREDNISONE 50 MG ORAL TABLET Take 50 mg dialy for 6 day s 7 PREDNISONE 18733444409 No Longer Active 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 BROKERAGE CLERK Active TUSSIONEX PENNKINETIC ER 10-8 MG/5ML ORAL SUSPENSION E XTENDED RELEASE 5ml po q12hr PRN Cough HYDROCOD POLST-CHLORPHEN POLST 5 9510284793 No Longer Active Cherelle Torres RN Active PREDNISONE 20 MG ORAL TABLET two tabs by mouth today, then one tab by mouth days two and three and four PREDNISONE 48009460294 No Lo nger Active Cherelle Torres RN Active AZITHROMYCIN 250 MG ORAL TABLET 2 po qd x 1 day, then 1 po q d x 4 days AZITHROMYCIN 54926181640 No Longer Active Ridge Bess DO Active PREDNISONE 20 MG ORAL TABLET 2 po qd x 5 days P REDNISONE 07718390205 No Longer Active Perez Mora MD Active PROAIR HFA 108 (90 BASE) MCG/ACT INHALATION AEROSOL SO LUTION 2 puffs four times a day as needed ALBUTEROL SULFATE 39415363263 No Long er Active Becky FUENTES Active ASPIRIN 81 MG ORAL TABLET 1 po qd ASPIRIN 60272347384 Active Carlton Hu MD Active PREDNISONE 20 MG ORAL TABLET 1 tab twice daily for 3 d ay, then one daily for three days PREDNISONE 51558334838 No Longer Active Carlton Hu MD Active AUGMENTIN 875-125 MG ORAL TABLET 1 po BID x 10 days 20 16/03/22 AMOXICILLIN-POT CLAVULANATE 53274920284 No Longer Active Elise Garcia APRN Active TERBINAFINE HCL 250 MG ORAL TABLET 1 qDay for nail fungus 7 TERBINAFINE HCL 20223388711 No Longer Active Carlton Hu MD A ctive AMOXICILLIN 500 MG ORAL CAPSULE 1 cap by mouth three times a day AMOXICILLIN 35430980163 No Longer Active Carlton Hu MD Active ELMIRON 100 MG ORAL CAPSULE 2 tablets in the am and 1 tablet at hs PENTOSAN POLYSULFATE SODIUM 35319267739 No Longer Active Robert jade Hu MD Active MUCINEX D 60-600 MG ORAL TABLET EXTENDED RELEASE 12 HOUR 1 t ab po q am PSEUDOEPHEDRINE-GUAIFENESIN 79721670432 No Longer Act nael Carlton Hu MD Active MUCINEX DM MAXIMUM STRENGTH 60-1200 MG ORAL TABLET EXT ENDED RELEASE 12 HOUR 1 tab po q am DEXTROMETHORPHAN-GUAIFENESIN 89437190556 No Longer Active Carlton Hu MD Active TUSSIONEX PENNKINETIC ER 10-8 MG/5ML ORAL SUSPENSION E XTENDED RELEASE 5ml po q12hr PRN Cough HYDROCOD POLST-CHLORPHEN POLST 5 3276890208 No Longer Active Carlton Hu MD Active POTASSIUM CHLORIDE ER 20 MEQ ORAL TABLET EXTENDED RELE ASE Take 1 by mouth 4 times daily for 7 days POTASSIUM CHLORIDE 89232411785 No Longer Active Carlton Hu MD Active ZITHROMAX 250 MG ORAL TABLET 2 po today, then 1 po q days 2-5 20 14/09/04 AZITHROMYCIN 97258447287 No Longer Active Elise Garcia APRN Active TUSSIONEX PENNKINETIC ER 10-8 MG/5ML ORAL SUSPENSION E XTENDED RELEASE 5 ml twice a day as needed for cough HYDROCOD POLST-CHLORPH EN POLST 93105352973 No Longer Active Elise Garcia APRN Active MONTELUKAST SODIUM 10 MG ORAL TABLET 1 po daily for Allergy MONTELUKAST SODIUM 73668856117 Active Carlton Hu MD Ac tive TUSSIONEX PENNKINETIC ER 10-8 MG/5ML ORAL SUSPENSION E XTENDED RELEASE 5ml po q12hr PRN Cough HYDROCOD POLST-CHLORPHEN POLST 5 7027431658 No Longer Active Hugo Restrepo MD Active LYRICA 100 MG ORAL CAPSULE Take 1 tab po BID for fibromyalgia 20 11/08/21 PREGABALIN 05011723369 No Longer Active Elise Garcia APRN A ctive PREDNISONE 20 MG ORAL TABLET 2 tabs daily for 3 days, 1 tab daily for 3 days, 1/2 tab daily for 2 days PREDNISONE 95539784803 No Longer Active Venullina Cesarl BROKERAGE CLERK Active TUSSIONEX PENNKINETIC ER 10-8 MG/5ML ORAL SUSPENSION E XTENDED RELEASE 5 mL PO q 12 hrs PRN cough HYDROCOD POLST-CHLORPHEN POLST 961442 61347 No Longer Active Jillina Frakerriel BROKERAGE CLERK Active FLUTICASONE PROPIONATE 50 MCG/ACT NASAL SUSPENSION 2 s prays each nostril daily until bottle is empty FLUTICASONE PROPIONATE 581674764 99 No Longer Active Jillina Frazell BROKERAGE CLERK Active ASMANEX 60 METERED DOSES 220 MCG/INH INHALATION AEROSO L POWDER BREATH ACTIVATED 1 puff bid with rinse after MOMETASONE FUROATE 7839455 4102 No Longer Active Jillina Cesarl BROKERAGE CLERK Active ZITHROMAX Z-REYNA 250 MG ORAL TABLET 2 today, then 1 daily for 4 d ays AZITHROMYCIN 41114524790 No Longer Active Elise Garcia BROKERAGE CLERK Active TUSSIONEX PENNKINETIC ER 10-8 MG/5ML ORAL SUSPENSION E XTENDED RELEASE 5ml po q12hr PRN Cough HYDROCOD POLST-CHLORPHEN POLST 5 7957510718 No Longer Active Elise Garcia BROKERAGE CLERK Active PREDNISONE 20 MG ORAL TABLET 2 tabs daily for 3 days, 1 tab daily for 3 days, 1/2 tab daily for 2 days PREDNISONE 02898719107 No Longer Active Jillina Cesarl BROKERAGE CLERK Active AMOXICILLIN 500 MG ORAL CAPSULE 2 po BID x 10 days 201 09/29/08 AMOXICILLIN 35891080943 No Longer Active Jillina Daphnezell BROKERAGE CLERK Act nael SINGULAIR 10 MG ORAL TABLET 1 po qday for allergies 20 14/01/12 MONTELUKAST SODIUM 30054524877 No Longer Active Carlton Hu MD Active LEVAQUIN 500 MG ORAL TABLET 1 tablet by mouth daily 13/09/24 LEVOFLOXACIN 01437712721 No Longer Active Carlton Hu MD Acti ve FLUTICASONE PROPIONATE 50 MCG/ACT NASAL SUSPENSION 2 s prays each nostril daily for 2 weeks, then 1 spray each nostril daily. FLUTICASONE PROPIONATE 25608131762 Active David Lopes APRN Active ZITHROMAX 250 MG ORAL TABLET 2 po today, then 1 po q days 2-5 13/08/10 AZITHROMYCIN 04211556858 No Longer Active Elise Garcia APRN Active CEFDINIR 300 MG ORAL CAPSULE 1 po BID x 10 days CEFDINIR 69278812005 No Longer Active Carlton Hu MD Active ZOCOR 40 MG ORAL TABLET 1 tab by mouth daily SI MVASTATIN 10082596966 No Longer Active Carlton Hu MD Active CYCLOBENZAPRINE HCL 10 MG ORAL TABLET 1 tablet by mouth BID prn had pain CYCLOBENZAPRINE HCL 28186111393 No Longer Active Jayden Hu MD Active LEVOFLOXACIN 500 MG ORAL TABLET 1 tab PO daily x 10 days LEVOFLOXACIN 74322923221 No Longer Active Carlton Hu MD Acti ve PREDNISONE 20 MG ORAL TABLET 3 tab PO qd x 2d, 2 tab P O qd x 2d, 1 tab PO qd x 2d, 1/2 tab PO qd x 2d PREDNISONE 23284961027 No Lo nger Active Carlton Hu MD Active FLUTICASONE PROPIONATE 50 MCG/ACT NASAL SUSPENSION 1 t o 2 sprays each nostril daily FLUTICASONE PROPIONATE 00243753351 No Longer Ac matthew HERNANDEZ Active CHERATUSSIN AC 100-10 MG/5ML ORAL SYRUP 1 tsp by mouth every 4 hours as needed for cough GUAIFENESIN-CODEINE 09429166040 No Longe r Active Blaine HERNANDEZ Active PROMETHAZINE-CODEINE 6.25-10 MG/5ML ORAL SYRUP 1 tsp b y mouth every 6 hours if needed for cough PROMETHAZINE-CODEINE 32373376572 No Longer Active Blaine HERNANDEZ Active CHERATUSSIN AC 100-10 MG/5ML ORAL SYRUP 1 tsp by mouth every 4 hours as needed for cough GUAIFENESIN-CODEINE 43246788530 No Longe r Active Blaine HERNANDEZ Active ZITHROMAX Z-REYNA 250 MG ORAL TABLET 2 today, then 1 daily for 4 d ays AZITHROMYCIN 28795837517 No Longer Active Columba Raida Act nael ZITHROMAX 250 MG ORAL TABLET 2 po today, then 1 po q days 2-5 20 14/03/21 AZITHROMYCIN 56843202270 No Longer Active Carlton Hu MD Active ZITHROMAX Z-REYNA 250 MG ORAL TABLET 2 today, then 1 daily for 4 d ays AZITHROMYCIN 52055265443 No Longer Active Columba Raida Act nael AUGMENTIN 875-125 MG ORAL TABLET 1 po BID x 10 days 13/01/20 AMOXICILLIN-POT CLAVULANATE 97739745223 No Longer Active Diya De Guzman APRN Active ZITHROMAX 250 MG ORAL TABLET 2 po today, then 1 po q days 2-5 20 12/08/14 AZITHROMYCIN 67150412100 No Longer Active Carlton Hu MD Active PREMARIN 0.625 MG ORAL TABLET TAKE 1 TAB BY MOUTH DAILY ESTROGENS CONJUGATED 78016689513 No Longer Active Ridge Bess DO A ctive CYMBALTA 30 MG ORAL CAPSULE DELAYED RELEASE PARTICLES 1 cap by mouth daily DULOXETINE HCL 18322488963 No Longer Active Ridge tam DO Active AMOXICILLIN 500 MG ORAL CAPSULE 1 tab by mouth 3 times daily x 10 days AMOXICILLIN 52093918802 No Longer Active Carlton bustamante MD Active AMOXICILLIN 500 MG ORAL CAPSULE 1 tab by mouth 3 times daily x 10 days AMOXICILLIN 11931553002 No Longer Active Carlton bustamante MD Active PROMETHAZINE-CODEINE 6.25-10 MG/5ML ORAL SYRUP 1 tsp b y mouth every 8 hours prn cough PROMETHAZINE-CODEINE 37520576252 No Longer Acti ve Carlton Hu MD Active MEDROL 4 MG ORAL TABLET THERAPY PACK 6 pills x 1 day, then 5 pills x 1 day then 4 pills x 1 day, then 3 pills x 1 day, then 2 pills x 1 day, then 1 pill x 1 day, then stop METHYLPREDNISOLONE 70877626732 No Long er Active Perez Mora MD Active AZITHROMYCIN 250 MG ORAL TABLET 2 po qd x 1 day, then 1 po q d x 4 days AZITHROMYCIN 90033735467 No Longer Active Perez Ambriz MD Active SYMBICORT 160-4.5 MCG/ACT INHALATION AEROSOL 2 puffs bid wit h rinse after BUDESONIDE-FORMOTEROL FUMARATE 12175477580 N o Longer Active Perez Mora MD Active LYRICA 75 MG ORAL CAPSULE TAKE 1 CAPSULE BY MOUTH TWICE DAILY PREGABALIN 92578479879 No Longer Active Carlton Hu MD Acti ve TOPAMAX 25 MG ORAL TABLET 1 qHS x 1 week, then 1 BID x 1 week, then 1 qAM and 2 qHS x 1 week, then 2 BID (migraine prevention) T OPIRAMATE 76996470108 No Longer Active Jerica FUENTES Active TOPAMAX 50 MG ORAL TABLET take 1 tab po BID for migraines. 07/02 TOPIRAMATE 01046800678 No Longer Active Jerica FUENTES Active TRIAMCINOLONE ACETONIDE 0.1 % EXTERNAL CREAM apply three roger es daily prn rash TRIAMCINOLONE ACETONIDE 42034143689 No Longer Active Carlton Hu MD Active CHERATUSSIN AC 100-10 MG/5ML ORAL SYRUP 5ml po q6hr PRN Cough 20 13/04/14 GUAIFENESIN-CODEINE 47947364258 No Longer Active Carlton Hu MD Active MEDROL 4 MG ORAL TABLET THERAPY PACK 6 tabs on day 1, 5 tabs on day 2, 4 tabs on day 3, 3 tabs on day 4, 2 tabs on day 5, 1 tab on day 6 2013 METHYLPREDNISOLONE 89731232958 No Longer Active Perez Mora MD Active AZITHROMYCIN 250 MG ORAL TABLET 2 po qd x 1 day, then 1 po q d x 4 days AZITHROMYCIN 59100429794 No Longer Active Perez Ambriz MD Active PROPRANOLOL HCL 60 MG ORAL TABLET 1 PO Q D PROPRANOLOL HCL 04602169963 No Longer Active Perez Mora MD Activ e CHERATUSSIN AC 100-10 MG/5ML ORAL SYRUP take one tsp po Q 6h ours prn cough GUAIFENESIN-CODEINE 96820318492 No Longer Active Zia Mora MD Active AUGMENTIN 875-125 MG ORAL TABLET 1 tab by mouth twice daily with food AMOXICILLIN-POT CLAVULANATE 40579113094 No Longer Act nael Perez Mora MD Active CHERATUSSIN AC 100-10 MG/5ML ORAL SYRUP 1 tsp by mouth every 4 hours as needed for cough GUAIFENESIN-CODEINE 46375682401 No Longe r Active Hugo Restrepo MD Active ACETAMINOPHEN-CODEINE #3 300-30 MG ORAL TABLET 1 PO Q 4-6 HRS CO N PAIN ACETAMINOPHEN-CODEINE 43699078794 No Longer Active Hugo Restrepo MD Active LEVAQUIN 500 MG ORAL TABLET take one po QD LEVO FLOXACIN 71569536825 No Longer Active Griffin HERNANDEZ Active PREDNISONE 20 MG ORAL TABLET Take 3 tabs daily for 3 d ays, 2 tabs daily for 3 days, 1 tab daily for 3 days, 1/2 tab daily for 3 days 11/07 PREDNISONE 14845592432 No Longer Active Carlton Hu MD Acti ve AVELOX 400 MG ORAL TABLET 1 tab by mouth daily MOXIFLOXACIN HCL 52334650589 No Longer Active Carlton Hu MD Active CHERATUSSIN AC 100-10 MG/5ML ORAL SYRUP 1 tsp by mouth every 4 hours as needed for cough GUAIFENESIN-CODEINE 00753146090 No Longe r Active Hugo Restrepo MD Active AVELOX 400 MG ORAL TABLET 1 tab by mouth daily MOXIFLOXACIN HCL 98787788290 No Longer Active Marcy De La Rosa MD PhD Active TERBINAFINE HCL 250 MG ORAL TABLET 1 qDay T ERBINAFINE HCL 27480277215 No Longer Active Marcy De La Rosa MD PhD Active CHERATUSSIN AC 100-10 MG/5ML ORAL SYRUP 1 tsp by mouth every 4 hours as needed for cough GUAIFENESIN-CODEINE 74232774545 No Longe r Active Marcy De La Rosa MD PhD Active AVELOX 400 MG ORAL TABLET 1 tab by mouth daily MOXIFLOXACIN HCL 04573475992 No Longer Active Marcy De La Rosa MD PhD Active HYDROCODONE-ACETAMINOPHEN 5-325 MG ORAL TABLET 1 po q 6hr PRN co ugh HYDROCODONE-ACETAMINOPHEN 46011835581 No Longer Active Marcy De La Rosa MD PhD Active PREDNISONE 20 MG ORAL TABLET 2 tabs daily for 3 days, 1 tab daily for 3 days, 1/2 tab daily for 2 days PREDNISONE 29154392438 No Longer Active Carlton Hu MD Active CEFDINIR 300 MG ORAL CAPSULE by mouth twice a day 2011 CEFDINIR 46198093018 No Longer Active Carlton Hu MD Acti ve ACETAMINOPHEN-CODEINE #3 300-30 MG ORAL TABLET 1 tablet po q 4-6 hrs prn pain ACETAMINOPHEN-CODEINE 41223957084 No Longer Active Ridge Bess DO Active ZITHROMAX 250 MG ORAL TABLET 2 po today, then 1 po q days 2-5 20 03/07/07 AZITHROMYCIN 52403176143 No Longer Active Carlton Hu MD Active CHERATUSSIN AC 100-10 MG/5ML ORAL SYRUP take 1 tsp po q4-6 h ours prn cough GUAIFENESIN-CODEINE 67165811950 No Longer Active Jayden Hu MD Active ACETAMINOPHEN-CODEINE #3 300-30 MG ORAL TABLET 1 PO Q 4-6 HR PRN PAIN ACETAMINOPHEN-CODEINE 69764016961 No Longer Active Arnol Hu MD Active LORTAB 7.5-500 MG/15ML ORAL ELIXIR 7.5 ml po q 4 hour prn cough HYDROCODONE-ACETAMINOPHEN 41507958773 No Longer Active Carlton Hu MD Active PREDNISONE 20 MG ORAL TABLET 1 po bid 3 days, then 1 po q day 3 days PREDNISONE 34028092585 No Longer Active Carlton Hu MD Active CEFDINIR 300 MG ORAL CAPSULE by mouth twice a day 2011 CEFDINIR 11460167263 No Longer Active Carlton Hu MD Acti ve CEFDINIR 300 MG ORAL CAPSULE by mouth twice a day 2010 CEFDINIR 50413442868 No Longer Active Carlton Hu MD Acti ve CEFDINIR 300 MG ORAL CAPSULE by mouth twice a day 2010 CEFDINIR 32056066281 No Longer Active Carlton Hu MD Acti ve TESSALON PERLES 100 MG ORAL CAPSULE 1 tablet by mouth 3 times daily as needed for cough BENZONATATE 11982402064 No Longer Active Carlton Hu MD Active CEFDINIR 300 MG ORAL CAPSULE by mouth twice a day 2010 CEFDINIR 05718170561 No Longer Active Carlton Hu MD Acti ve ZITHROMAX Z-REYNA 250 MG ORAL TABLET 2 today, then 1 daily for 4 d ays AZITHROMYCIN 75372453714 No Longer Active Hugo Restrepo MD Active TESSALON PERLES 100 MG ORAL CAPSULE 1 tablet by mouth 3 times daily as needed for cough TESSALON PERLES 100 MG ORAL CAPSULE 74488 7 BENZONATATE Inactive PREDNISONE 20 MG ORAL TABLET 1 po bid 3 days, then 1 po q day 3 days PREDNISONE 20 MG ORAL TABLET 440768 PREDNISONE Greer ctive LORTAB 7.5-500 MG/15ML ORAL ELIXIR 7.5 ml po q 4 hour prn cough LORTAB 7.5-500 MG/15ML ORAL ELIXIR HYDROCODONE-A CETAMINOPHEN Inactive ACETAMINOPHEN-CODEINE #3 300-30 MG ORAL TABLET 1 PO Q 4-6 HR PRN PAIN ACETAMINOPHEN-CODEINE #3 300-30 MG ORAL TABLET 9 69781 ACETAMINOPHEN-CODEINE Inactive CHERATUSSIN AC 100-10 MG/5ML ORAL SYRUP take 1 tsp po q4-6 h ours prn cough CHERATUSSIN AC 100-10 MG/5ML ORAL SYRUP 365240 GUAIFENESIN-CODEINE Inactive ACETAMINOPHEN-CODEINE #3 300-30 MG ORAL TABLET 1 tablet po q 4-6 hrs prn pain ACETAMINOPHEN-CODEINE #3 300-30 MG ORAL TABLET 127078 ACETAMINOPHEN-CODEINE Inactive HYDROCODONE-ACETAMINOPHEN 5-325 MG ORAL TABLET 1 po q 6hr PRN co ugh HYDROCODONE-ACETAMINOPHEN 5-325 MG ORAL TABLET 984451 HYDROCODONE-ACETAMINOPHEN Inactive AVELOX 400 MG ORAL TABLET 1 tab by mouth daily AVELOX 400 MG ORAL TABLET MOXIFLOXACIN HCL Inactive CHERATUSSIN AC 100-10 MG/5ML ORAL SYRUP 1 tsp by mouth every 4 hours as needed for cough CHERATUSSIN AC 100-10 MG/5ML ORAL SYRUP 9 32536 GUAIFENESIN-CODEINE Inactive TERBINAFINE HCL 250 MG ORAL TABLET 1 qDay 07/08 TERBINAFINE HCL 250 MG ORAL TABLET 317939 TERBINAFINE HCL Inactive CHERATUSSIN AC 100-10 MG/5ML ORAL SYRUP 1 tsp by mouth every 4 hours as needed for cough CHERATUSSIN AC 100-10 MG/5ML ORAL SYRUP 9 03103 GUAIFENESIN-CODEINE Inactive ACETAMINOPHEN-CODEINE #3 300-30 MG ORAL TABLET 1 PO Q 4-6 HRS CO N PAIN ACETAMINOPHEN-CODEINE #3 300-30 MG ORAL TABLET 340898 ACETAMINOPHEN-CODEINE Inactive CHERATUSSIN AC 100-10 MG/5ML ORAL SYRUP 1 tsp by mouth every 4 hours as needed for cough CHERATUSSIN AC 100-10 MG/5ML ORAL SYRUP 9 84879 GUAIFENESIN-CODEINE Inactive AUGMENTIN 875-125 MG ORAL TABLET 1 tab by mouth twice daily with food AUGMENTIN 875-125 MG ORAL TABLET AMOXICIL MADELINE-POT CLAVULANATE Inactive CHERATUSSIN AC 100-10 MG/5ML ORAL SYRUP take one tsp po Q 6h ours prn cough CHERATUSSIN AC 100-10 MG/5ML ORAL SYRUP 228451 GUAIFENESIN-CODEINE Inactive PROPRANOLOL HCL 60 MG ORAL TABLET 1 PO Q D PROPRANOLOL HCL 60 MG ORAL TABLET 227829 PROPRANOLOL HCL Inactive TOPAMAX 50 MG ORAL TABLET take 1 tab po BID for migraines. 07/02 TOPAMAX 50 MG ORAL TABLET 746608 TOPIRAMATE Inacti ve TOPAMAX 25 MG ORAL TABLET 1 qHS x 1 week, then 1 BID x 1 week, then 1 qAM and 2 qHS x 1 week, then 2 BID (migraine prevention) TOPAMAX 25 MG ORAL TABLET 055104 TOPIRAMATE Inactive LYRICA 75 MG ORAL CAPSULE TAKE 1 CAPSULE BY MOUTH TWICE DAILY LYRICA 75 MG ORAL CAPSULE 829400 PREGABALIN Inactive SYMBICORT 160-4.5 MCG/ACT INHALATION AEROSOL 2 puffs bid wit h rinse after SYMBICORT 160-4.5 MCG/ACT INHALATION AEROSOL 124 0644 BUDESONIDE-FORMOTEROL FUMARATE Inactive PROMETHAZINE-CODEINE 6.25-10 MG/5ML ORAL SYRUP 1 tsp b y mouth every 8 hours prn cough PROMETHAZINE-CODEINE 6.25-10 MG/ 5ML ORAL SYRUP 075582 PROMETHAZINE-CODEINE Inactive CYMBALTA 30 MG ORAL CAPSULE DELAYED RELEASE PARTICLES 1 cap by mouth daily CYMBALTA 30 MG ORAL CAPSULE DELAYED RELE ASE PARTICLES [id number] DULOXETINE HCL Inactive PREMARIN 0.625 MG ORAL TABLET TAKE 1 TAB BY MOUTH DAILY PREMARIN 0.625 MG ORAL TABLET ESTROGENS CONJUGATED Inactive CHERATUSSIN AC 100-10 MG/5ML ORAL SYRUP 1 tsp by mouth every 4 hours as needed for cough CHERATUSSIN AC 100-10 MG/5ML ORAL SYRUP [id number] GUAIFENESIN-CODEINE Inactive PROMETHAZINE-CODEINE 6.25-10 MG/5ML ORAL SYRUP 1 tsp b y mouth every 6 hours if needed for cough PROMETHAZINE-CODEINE 6.25-10 MG/5ML ORAL SYRUP 219809 PROMETHAZINE-CODEINE Inactive CHERATUSSIN AC 100-10 MG/5ML ORAL SYRUP 1 tsp by mouth every 4 hours as needed for cough CHERATUSSIN AC 100-10 MG/5ML ORAL SYRUP 9 55933 GUAIFENESIN-CODEINE Inactive FLUTICASONE PROPIONATE 50 MCG/ACT NASAL SUSPENSION 1 t o 2 sprays each nostril daily FLUTICASONE PROPIONATE 50 MCG/AC T NASAL SUSPENSION 3048357 FLUTICASONE PROPIONATE Inactive PREDNISONE 20 MG ORAL TABLET 3 tab PO qd x 2d, 2 tab P O qd x 2d, 1 tab PO qd x 2d, 1/2 tab PO qd x 2d PREDNISONE 20 MG ORAL TAB LET 093296 PREDNISONE Inactive LEVOFLOXACIN 500 MG ORAL TABLET 1 tab PO daily x 10 days LEVOFLOXACIN 500 MG ORAL TABLET 402684 LEVOFLOXACIN Inactive CYCLOBENZAPRINE HCL 10 MG ORAL TABLET 1 tablet by mouth BID prn had pain CYCLOBENZAPRINE HCL 10 MG ORAL TABLET 330646 CYCLOBENZAPRINE HCL Inactive ZOCOR 40 MG ORAL TABLET 1 tab by mouth daily 4 ZOCOR 40 MG ORAL TABLET 489465 SIMVASTATIN Inactive TUSSIONEX PENNKINETIC ER 10-8 MG/5ML [...] FLUTICASONE PROPIO EFE 50 MCG/ACT NASAL SUSPENSION 8034963 FLUTICASONE PROPIONATE Inactive TUSSIONEX PENNKINETIC ER 10-8 MG/5ML ORAL SUSPENSION E XTENDED RELEASE 5 mL PO q 12 hrs PRN cough TUSSIONEX PENNKINETI C ER 10-8 MG/5ML ORAL SUSPENSION EXTENDED RELEASE HYDROCOD POLST-CHLORPHEN POLST I nactive LYRICA 100 MG ORAL CAPSULE Take 1 tab po BID for fibromyalgia 20 11/08/21 LYRICA 100 MG ORAL CAPSULE 308681 PREGABALIN Inact nael TUSSIONEX PENNKINETIC ER 10-8 [...] three days PREDNISONE 20 MG ORAL TABLET 952724 PREDNIS ONE Inactive PROAIR HFA 108 (90 BASE) MCG/ACT INHALATION AEROSOL SO LUTION 2 puffs four times a day as needed PROAIR HFA 108 (90 B ASE) MCG/ACT INHALATION AEROSOL SOLUTION ALBUTEROL SULFATE Inactive PREDNISONE 20 MG ORAL TABLET two tabs by mouth today, then one tab by mouth days two and three and four PREDNISONE 20 MG ORAL TAB LET 128513 PREDNISONE Inactive TUSSIONEX PENNKINETIC ER 10-8 MG/5ML [...] bid 04/20 TOPAMAX 100 MG ORAL TABLET 804943 TOPIRAMATE Inactive CYMBALTA 30 MG ORAL CAPSULE DELAYED RELEASE PARTICLES 1 cap by mouth daily for depression CYMBALTA 30 MG ORAL CAPSULE DELAYED RELEASE PARTICLES 888094 DULOXETINE HCL Inactive TYLENOL WITH CODEINE #3 300-30 MG ORAL TABLET 1-2 po q6hr PRN Pa in TYLENOL WITH CODEINE #3 300-30 MG ORAL TABLET 821187 ACETAMINOPHEN-CODEINE Inactive TYLENOL WITH CODEINE #3 300-30 MG ORAL TABLET TYLENOL WITH CODEINE #3 300-30 MG ORAL TABLET 029586 ACETAMINOPHEN-CODEINE Inactive TRIAMCINOLONE ACETONIDE 0.1 % EXTERNAL CREAM apply bid spari ngly to rash TRIAMCINOLONE ACETONIDE 0.1 % EXTERNAL CREAM 101 4314 TRIAMCINOLONE ACETONIDE Inactive GUAIFENESIN-CODEINE 100-10 MG/5ML ORAL SYRUP 1 tsp PO q6h PRN co ugh GUAIFENESIN-CODEINE 100-10 MG/5ML ORAL SYRUP 100107 GUAIFENESIN-CODEINE Inactive ATORVASTATIN CALCIUM 10 MG ORAL TABLET 1 pill by mouth night ly, for cholesterol ATORVASTATIN CALCIUM 10 MG ORAL TABLET 661227 ATORVASTATIN CALCIUM Inactive PAXIL 40 MG ORAL TABLET take 1 tab po qday for depression 0 PAXIL 40 MG ORAL TABLET 9512943 PAROXETINE HCL Inactive ZITHROMAX Z-REYNA 250 MG ORAL TABLET 2 today, then 1 daily for 4 d ays ZITHROMAX Z-REYNA 250 MG ORAL TABLET 605997 AZITHROMYCIN Inactive CEFDINIR 300 MG ORAL CAPSULE [...] po today, then 1 po q days 2-08 1703/07/07 ZITHROMAX 250 MG ORAL TABLET 014622 AZITHROMYCIN [place] [facility] CEFDINIR 300 MG ORAL CAPSULE by mouth twice a day 2011 CEFDINIR 300 MG ORAL CAPSULE 20020704 CEFDINIR Inactive PREDNISONE 20 MG ORAL TABLET 2 tabs daily for 3 days, 1 tab daily for 3 days, 1/2 tab daily for 2 days PREDNISONE 20 MG ORAL T ABLET 371466 PREDNISONE Inactive AVELOX 400 MG ORAL TABLET 1 tab by mouth daily AVELOX 400 MG ORAL TABLET MOXIFLOXACIN HCL Inactive AVELOX 400 MG ORAL TABLET 1 tab by mouth daily AVELOX 400 MG ORAL TABLET MOXIFLOXACIN HCL Inactive PREDNISONE 20 MG ORAL TABLET Take 3 tabs daily for 3 d ays, 2 tabs daily for 3 days, 1 tab daily for 3 days, 1/2 tab daily for 3 days 11/07 PREDNISONE 20 MG ORAL TABLET 443779 PREDNISONE Inactive LEVAQUIN 500 MG ORAL TABLET take one po QD LEVAQUIN 500 MG ORAL TABLET 002371 LEVOFLOXACIN Inactive AZITHROMYCIN 250 MG ORAL TABLET 2 po qd x 1 day, then 1 po q d x 4 days AZITHROMYCIN 250 MG ORAL TABLET 161316 AZITHROMY GIOVANNI Inactive MEDROL 4 MG ORAL TABLET THERAPY PACK 6 tabs on day 1, 5 tabs on day 2, 4 tabs on day 3, 3 tabs on day 4, 2 tabs on day 5, 1 tab on day 6 2013 MEDROL 4 MG ORAL TABLET THERAPY PACK 843600 METHYLPREDNISOLONE [place] [facility] CHERATUSSIN AC 100-10 MG/5ML ORAL SYRUP 5ml po q6hr PRN Cough 20 13/04/14 CHERATUSSIN AC 100-10 MG/5ML ORAL SYRUP 912405 GUAIFENE SIN-CODEINE Inactive TRIAMCINOLONE ACETONIDE 0.1 % EXTERNAL CREAM apply three roger es daily prn rash TRIAMCINOLONE ACETONIDE 0.1 % EXTERNAL CREAM 101 4314 TRIAMCINOLONE ACETONIDE Inactive AZITHROMYCIN 250 MG ORAL TABLET 2 po qd x 1 day, then 1 po q d x 4 days AZITHROMYCIN 250 MG ORAL TABLET 553382 AZITHROMY GIOVANNI Inactive MEDROL 4 MG ORAL TABLET THERAPY PACK 6 pills x 1 day, then 5 pills x 1 day then 4 pills x 1 day, then 3 pills x 1 day, then 2 pills x 1 day, then 1 pill x 1 day, then stop MEDROL 4 MG ORAL TABLET THERAPY PACK 437938 METHYLPREDNISOLONE Inactive AMOXICILLIN 500 MG ORAL CAPSULE 1 tab by mouth 3 times daily x 10 days AMOXICILLIN 500 MG ORAL CAPSULE 828438 AMOXICILL IN Inactive AMOXICILLIN 500 MG ORAL CAPSULE 1 tab by mouth 3 times daily x 10 days AMOXICILLIN 500 MG ORAL CAPSULE 558462 AMOXICILL IN Inactive ZITHROMAX 250 MG ORAL TABLET 2 po today, then 1 po q days 2-5 20 12/08/14 ZITHROMAX 250 MG ORAL TABLET 586145 AZITHROMYCIN [place] [facility] AUGMENTIN 875-125 MG ORAL TABLET 1 po BID x 10 days 20 13/01/20 AUGMENTIN 875-125 MG ORAL TABLET AMOXICILLIN-POT CLAVULANATE Inactive ZITHROMAX Z-REYNA 250 MG ORAL TABLET 2 today, then 1 daily for 4 d ays ZITHROMAX Z-REYNA 250 MG ORAL TABLET 573133 AZITHROMYCIN Inactive ZITHROMAX 250 MG ORAL TABLET 2 po today, then 1 po q days 2-5 20 14/03/21 ZITHROMAX 250 MG ORAL TABLET 481920 AZITHROMYCIN [place] [facility] ZITHROMAX Z-REYNA 250 MG ORAL TABLET 2 today, then 1 daily for 4 d ays ZITHROMAX Z-REYNA 250 MG ORAL TABLET 351390 AZITHROMYCIN Inactive CEFDINIR 300 MG ORAL CAPSULE 1 po BID x 10 days 06/21 CEFDINIR 300 MG ORAL CAPSULE 051585 CEFDINIR Inactive ZITHROMAX 250 MG ORAL TABLET 2 po today, then 1 po q days 2-5 20 13/08/10 ZITHROMAX 250 MG ORAL TABLET 228058 AZITHROMYCIN [place] [facility] LEVAQUIN 500 MG ORAL TABLET 1 tablet by mouth daily 13/09/24 LEVAQUIN 500 MG ORAL TABLET 719138 LEVOFLOXACIN Inactive SINGULAIR 10 MG ORAL TABLET 1 po qday for allergies 14/01/12 SINGULAIR 10 MG ORAL TABLET 361386 MONTELUKAST SODIUM Inactive AMOXICILLIN 500 MG ORAL CAPSULE 2 po BID x 10 days 201 09/29/08 AMOXICILLIN 500 MG ORAL CAPSULE 131617 AMOXICILLIN Inactive PREDNISONE 20 MG ORAL TABLET 2 tabs daily for 3 days, 1 tab daily for 3 days, 1/2 tab daily for 2 days PREDNISONE 20 MG ORAL T ABLET 365345 PREDNISONE Inactive ZITHROMAX Z-REYNA 250 MG ORAL TABLET 2 today, then 1 daily for 4 d ays ZITHROMAX Z-REYNA 250 MG ORAL TABLET 612877 AZITHROMYCIN Inactive PREDNISONE 20 MG ORAL TABLET 2 tabs daily for 3 days, 1 tab daily for 3 days, 1/2 tab daily for 2 days PREDNISONE 20 MG ORAL T ABLET 782946 PREDNISONE Inactive ZITHROMAX 250 MG ORAL TABLET 2 po today, then 1 po q days 2-5 20 14/09/04 ZITHROMAX 250 MG ORAL TABLET 743079 AZITHROMYCIN [place] [facility] AMOXICILLIN 500 MG ORAL CAPSULE 1 cap by mouth three times a day AMOXICILLIN 500 MG ORAL CAPSULE 621965 AMOXICILLIN Inactive TERBINAFINE HCL 250 MG ORAL TABLET 1 qDay for nail fungus 7 TERBINAFINE HCL 250 MG ORAL TABLET 538307 TERBINAFINE HCL Inact nael AUGMENTIN 875-125 MG ORAL TABLET 1 po BID x 10 days 16/03/22 AUGMENTIN 875-125 MG ORAL TABLET AMOXICILLIN-POT CLAVULANATE Inactive PREDNISONE 20 MG ORAL TABLET 2 po qd x 5 days PREDNISONE 20 MG ORAL TABLET 677726 PREDNISONE Inactive AZITHROMYCIN 250 MG ORAL TABLET 2 po qd x 1 day, then 1 po q d x 4 days AZITHROMYCIN 250 MG ORAL TABLET 110878 AZITHROMY GIOVANNI Inactive PREDNISONE 50 MG ORAL TABLET Take 50 mg dialy for 6 day s 7 PREDNISONE 50 MG ORAL TABLET 781950 PREDNISONE Inactive AUGMENTIN 875-125 MG ORAL TABLET 1 po BID x 10 days 18/04/16 AUGMENTIN 875-125 MG ORAL TABLET AMOXICILLIN-POT CLAVULANATE Inactive DOXYCYCLINE HYCLATE 100 MG ORAL CAPSULE 1 cap by mouth twice latasha ly DOXYCYCLINE HYCLATE 100 MG ORAL CAPSULE 1349416 DOXYCYCL INE HYCLATE Inactive PREDNISONE 20 MG ORAL TABLET Take 2 tabs day 1 and 2 and 1 t ab days 3 and 4 PREDNISONE 20 MG ORAL TABLET 806868 PREDNISONE Inactive AMOXICILLIN 500 MG ORAL CAPSULE 1 cap by mouth twice daily 10/21 AMOXICILLIN 500 MG ORAL CAPSULE 408659 AMOXICILLIN Inactive TRIAMCINOLONE ACETONIDE 0.1 % EXTERNAL OINTMENT Apply to affected areas TID PRN Rash/Itching for up 2 weeks TRIAMCINOLON E ACETONIDE 0.1 % EXTERNAL OINTMENT 2541315 TRIAMCINOLONE ACETONIDE Inactive ACYCLOVIR 800 MG ORAL TABLET 1 po 5 times daily x 7 days ACYCLOVIR 800 MG ORAL TABLET 149022 ACYCLOVIR Inactive AMOXICILLIN-POT CLAVULANATE 875-125 MG ORAL TABLET 1 pill by mouth twice daily AMOXICILLIN-POT CLAVULANATE 875-125 MG ORAL TABL ET 587987 AMOXICILLIN-POT CLAVULANATE Inactive AMOXICILLIN-POT CLAVULANATE 875-125 MG ORAL TABLET 1 pill by mouth twice daily AMOXICILLIN-POT CLAVULANATE 875-125 MG ORAL TABL ET 835772 AMOXICILLIN-POT CLAVULANATE Inactive Vital Signs Date Name Value Unit Range Description blood pressure, diastolic, repeated by physician 76 BP srinivasan blood pressure, diastolic 76 mm[Hg] BP srinivasan blood pressure, systolic, repeated by physician 101 BP sys blood pressure, systolic 101 mm[Hg] BP sys height E&M 53 [in_us] Bdy height pulse rate 87 /min Heart rate temperature E&M 98.4 [degF] Body temp erature weight E&M 139 [lb_av] Weight Measure d blood pressure, diastolic, repeated by physician 67 BP srinivasan blood pressure, diastolic 67 mm[Hg] BP srinivasan blood pressure, systolic, repeated by physician 110 BP sys blood pressure, systolic 110 mm[Hg] BP sys height E&M 53 [in_us] Bdy height pulse rate 99 /min Heart rate temperature E&M 98.9 [degF] Body temp erature weight E&M 134 [lb_av] Weight Measure d blood pressure, diastolic, repeated by physician 76 BP srinivasan blood pressure, diastolic 76 mm[Hg] BP srinivasan blood pressure, systolic, repeated by physician 110 BP sys blood pressure, systolic 110 mm[Hg] BP sys height E&M 53 [in_us] Bdy height pulse rate 107 /min Heart rate temperature E&M 97.5 [degF] Body temp erature weight E&M 133 [lb_av] Weight Measure d blood pressure, diastolic, repeated by physician 80 BP srinivasan blood pressure, diastolic 80 mm[Hg] BP srinivasan blood pressure, systolic, repeated by physician 122 BP sys blood pressure, systolic 122 mm[Hg] BP sys height E&M 53 [in_us] Bdy height pulse rate 105 /min Heart rate temperature E&M 97.1 [degF] Body temp erature weight E&M 135.06 [lb_av] Weight Measure d blood pressure, diastolic 69 mm[Hg] BP srinivasan blood pressure, systolic 101 mm[Hg] BP sys pulse rate 99 /min Heart rate temperature E&M 98.3 [degF] Body temp erature weight E&M 140.10 [lb_av] Weight Measure d blood pressure, diastolic, repeated by physician 83 BP srinivasan blood pressure, diastolic 83 mm[Hg] BP srinivasan blood pressure, systolic, repeated by physician 133 BP sys blood pressure, systolic 133 mm[Hg] BP sys height E&M 53 [in_us] Bdy height pulse rate 96 /min Heart rate temperature E&M 97.1 [degF] Body temp erature weight E&M 141.31 [lb_av] Weight Measure d Diagnostic Results Date Name Value Unit Range Description Lab Report: Comp. Metabolic Panel, CBC, Lipid Panel - Chemistry sodium, serum 137 mmol/L 084-869 1261/10/08 carbon dioxide, venous blood 29.9 mmol/L 21.0-32 .0 potassium, serum 3.6 mmol/L 3.5-5.2 chloride, serum 98 mmol/L 98-107 blood glucose 105 mg/dL 65-95 urea nitrogen, blood 8 mg/dL 7-18 creatinine, serum 0.98 mg/dL 0.60-1.30 Estimated Glomerular Filtration Rate (calc) 61 (?) mL/min/1.73m2 = OR > 60 mL/min alanine aminotransferase (SGPT), serum 37 U/L 12-78 aspartate aminotransferase (SGOT), serum 16 U/L 15-37 calcium, serum 10.1 mg/dL 8.5-10.1 bilirubin, serum, total 0.50 mg/dL 0.00-1.00 cholesterol, serum 324 mg/dL 636-570 7326/10/08 triglyceride, serum, fasting 130 mg/dL 30-200 HDL cholesterol, serum 61 mg/dL 32-60 LDL cholesterol, serum 237 mg/dL 0-130 Lab Report: Comp. Metabolic Panel, CBC, Lipid Panel - Hematology leukocyte count, blood 4.0 10^3/MM^3 10*3/mm3 4.6-10.2 erythrocyte (RBC) count 5.52 10^6/MM^3 10*6/mm3 3.80-5.8 0 hemoglobin, blood 15.6 g/dL 12.0-16.0 hematocrit, blood 48.5 % 37.0-47.0 mean corpuscular volume, RBC 88 fL 80-97 mean corpuscular hemoglobin, RBC 28.3 pg 27. 0-31.2 mean corpuscular hemoglobin concentration, RBC 32.2 G/DL % 31.8-35.4 red blood cell distribution width 11.2 % 11 .6-14.8 platelet count 455 10^3/MM^3 10*3/mm3 142-424 Lab Report: Comp. Metabolic Panel, CBC, Lipid Panel - Lab Alkaline phosphatase 82 50-136 Encounters Code Encounter Date Provider Facility CPT-10558 [id number] Vst-Est Level III 11:01:08 CDT Ra joe Lopes APRN [facility] CPT-84147 Level 3 Est. Patient 14:41:20 SUBSYSTEMS ENGINEER David Tin dle [facility] CPT-02643 [id number] Vst-Est Level IV 09:06:31 C ESAU Hu MD [facility] CPT-93052 Level 3 Est. Patient 14:16:41 CDT David Tin dle [facility] CPT-18624 Level 3 Est. Patient 13:57:55 CDT David Tin dle [facility] CPT-22833 Level 3 Est. Patient 16:08:07 CDT David Tin dle [facility] CPT-01420 Level 3 Est. Patient 16:53:54 CDT May haas MD [facility] CPT-70373 [id number] Vst-Est Level IV 08:41:[address] Carlton Hu MD [facility] CPT-55873 Level 3 Est. Patient 09:46:49 SUBSYSTEMS ENGINEER David Tin dle [facility] CPT-03612 [id number] Vst-Est Level III 11:12:16 CDT Yanet Bses DO [facility] CPT-98942 Level 3 Est. Patient 11:34:49 SUBSYSTEMS ENGINEER Perez Mora MD [facility] CPT-25243 Level 4 Est. Patient 09:51:32 SUBSYSTEMS ENGINEER Carlton rich MD [facility] CPT-72882 Level 3 Est. Patient 10:26:00 SUBSYSTEMS ENGINEER Elise stephenson [facility] CPT-78076 Level 3 Est. Patient 13:35:41 SUBSYSTEMS ENGINEER Carlton rich MD [facility] CPT-83475 Level 3 Est. Patient 10:03:52 SUBSYSTEMS ENGINEER Carlton rich MD [facility] CPT-05409 Level 3 Est. Patient 12:17:50 CDT Hugo Restrepo MD [facility] CPT-29276 Level 3 Est. Patient 13:42:38 CDT Elise Are ll [facility] CPT-33908 Level 3 Est. Patient 13:23:51 CDT Diya cobian [facility] CPT-17738 Level 3 Est. Patient 14:22:19 SUBSYSTEMS ENGINEER Astridgreer Mariana cobian [facility] CPT-02417 Level 3 Est. Patient 10:11:46 CDT Carlton rihc MD [facility] CPT-48775 Level 3 Est. Patient 17:29:43 CDT Elise Are [facility] CPT-83631 Level 3 Est. Patient 11:58:06 CDT Elise Are [facility] CPT-91180 Level 4 Est. Patient 14:36:51 CDT Carlton rich MD [facility] CPT-85185 Level 3 Est. Patient 18:16:00 SUBSYSTEMS ENGINEER Blaine HERNANDEZ [facility] CPT-01554 Level 3 Est. Patient 09:45:49 SUBSYSTEMS ENGINEER Carlton rich MD [facility] CPT-58725 Level 3 Est. Patient 13:19:20 CDT Carlton rich MD [facility] CPT-54318 Level 3 Est. Patient 13:06:43 CDT Ridge tam DO [facility] CPT-97707 Level 3 Est. Patient 10:03:07 CDT Perez Mora MD [facility] CPT-30646 Level 3 Est. Patient 19:50:35 SUBSYSTEMS ENGINEER Carlton rich MD [facility] CPT-24862 Level 4 Est. Patient 18:05:01 SUBSYSTEMS ENGINEER Carlton rich MD [facility] CPT-05504 Level 3 Est. Patient 10:45:55 SUBSYSTEMS ENGINEER Hugo Restrepo MD [facility] CPT-20216 Level 3 Est. Patient 14:12:49 CDT Griffin HERNANDEZ [facility] CPT-39336 Level 3 Est. Patient 17:37:24 CDT Carltno rich MD [facility] CPT-92529 Level 3 Est. Patient 16:51:54 CDT Carlton rich MD [facility] CPT-12575 Level 3 Est. Patient 12:18:11 CDT Hugo Restrepo MD [facility] CPT-51366 Level 3 Est. Patient 11:30:25 CDT Marcy crisostomo MD PhD [facility] CPT-74942 Level 3 Est. Patient 12:00:47 SUBSYSTEMS ENGINEER Carlton rich MD [facility] CPT-57439 Level 3 Est. Patient 16:31:06 SUBSYSTEMS ENGINEER Carlton rich MD [facility] CPT-20296 Level 3 Est. Patient 16:23:24 SUBSYSTEMS ENGINEER Ridge tam DO [facility] CPT-48324 Level 3 Est. Patient 12:34:12 CDT Carlton rich MD [facility] CPT-19583 Level 2 Est. Patient 15:43:33 CDT Robi armstrong MD [facility] CPT-78974 Level 4 Est. Patient 14:04:44 CDT Carlton rich MD [facility] CPT-73308 Level 3 Est. Patient 05:47:59 CDT Ridge tam [facility] CPT-60465 Level 3 Est. Patient 13:12:53 SUBSYSTEMS ENGINEER Carlton rich MD [facility] CPT-24505 Level 3 Est. Patient 14:26:53 CDT Hugo Restrepo MD [facility] Procedures Code Procedure Name Date Entry Date Standard Desc ription [facility]-[id number] ([id number] 2P) Patient Reason Influenza immu nization not administered 14:13:39 SUBSYSTEMS ENGINEER CPT-82877 Venipuncture Draw Fee 15:53:34 CDT CPT-000 Give Appropriate Flu Vaccine 14:14:31 CDT 2 CPT-J1040 Depo Medrol 80 mg (Methyl Prednisolone A cetate) 10:42:44 CDT CPT-J1100 Decadron 8mg (Dexamethasone) 10:42:44 CDT 2 CPT-J0696 Rocephin 1gm Inj Solr 14:32:13 CDT CPT-J1020 Depo Medrol 60 mg (Methyl Prednisolone A cetate) 14:32:13 CDT CPT-J1100 Decadron 6mg (Dexamethasone) 14:32:13 CDT 2 CPT-16131 Hip bilat min 2V w AP pelvis 13:16:20 CDT 2 CPT-89411 Pelvis only 13:07:33 CDT CPT-15835 Spec Collection and Handling Fee 11:25:12 C DT CPT-77192 Fluzone Quadrivalent Intramuscular Suspe nsion 0.5 ML 14:31:55 CDT CPT-69942 Abx/Therapy Injection 13:28:47 SUBSYSTEMS ENGINEER CPT-J2930 Solu Medrol 125 mg (Methyl Prednisolone Sodium Succinate) 12:00:47 SUBSYSTEMS ENGINEER CPT-13567 Venipuncture Draw Fee 11:33:31 CDT CPT-38478 EKG Trac and Interp 11:21:09 CDT CPT-80903 Chest 2V Frontal and Lat 11:21:09 CDT 12/15 CPT-21296 Venipuncture Draw Fee 08:02:34 CDT CPT-51697 Chest 2V Frontal and Lat 05:47:59 CDT 06/05
--- OUTSIDE RECORDS SUMMARY | 2019-10-08 08:43 | XMS REPORT | Clinical Summary ---
Author Author Caitlin, Juliana Martinez Organization [facility] Address Unknown Phone Unavailable Allergies, [...] 35.0-35.9, adult BMI 35-35.9 Refinement 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 SAFETY SCIENTIST Body Mass Index 35.0-35.9, adult BMI 33-33.9 Refinement 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 SAFETY SCIENTIST Body Mass Index 35.0-35.9, adult BMI 34-34.9 Active 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 SAFETY SCIENTIST Body Mass Index 35.0-35.9, adult Upper respiratory [...] throat 462 Active 201 12/06/23 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 SAFETY SCIENTIST Acute pharyngitis Shingles 053.9 Active 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 SAFETY SCIENTIST Herpes zoster without mention of complication Allergic [...] Inactive Marcy De La Rosa MD PhD SEASONAL ALLERGIC RHINITIS ICD-477.9 Inactive Carlton Hu MD BRONCHITIS, ACUTE WITH MILD BRONCHOSPASM ICD-466.0 Inactive Marcy DeL a Rosa MD PhD DYSPNEA ICD-786.05 Inactive Marcy [...] Generic Name NDC Status Provider Patient Instruction AMOXICILLIN-POT CLAVULANATE 875-125 MG ORAL TABLET 1 pill by mouth twice daily AMOXICILLIN-POT CLAVULANATE 94771159341 Active 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 SAFETY SCIENTIST Active PAXIL 40 MG ORAL TABLET take 1 tab po qday for depression 0 PAROXETINE HCL 33523137717 No Longer Active 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 SAFETY SCIENTIST Acti ve ATORVASTATIN CALCIUM 10 MG ORAL TABLET 1 pill by mouth night ly, for cholesterol ATORVASTATIN CALCIUM 84999454801 No Longer Active Ran dy Mraianne SAFETY SCIENTIST Active GUAIFENESIN-CODEINE 100-10 MG/5ML ORAL SYRUP 1 tsp PO q6h PRN co ugh GUAIFENESIN-CODEINE 88243645186 No Longer Active 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 SAFETY SCIENTIST Active TOPIRAMATE 100 MG ORAL TABLET Take 1 tablet by mouth twice daily 19/04/21 TOPIRAMATE 32676043220 Active Carlton Hu MD Active PAROXETINE HCL 40 MG TABS TAKE 1 TABLET BY MOUTH ONCE DAILY FOR DEPRESSION PAROXETINE HCL 63889427399 Active Carlton Hu MD Active HYDROCHLOROTHIAZIDE 25 MG ORAL TABLET Take 1 tablet by mouth once daily HYDROCHLOROTHIAZIDE 14074861572 Active Carlton Hu MD Active AMOXICILLIN-POT CLAVULANATE 875-125 MG ORAL TABLET 1 pill by mouth twice daily AMOXICILLIN-POT CLAVULANATE 24173325388 No Longer Act nael Lopes APRN Active DULOXETINE HCL 60 MG ORAL CAPSULE DELAYED RELEASE PART ICLES TAKE 1 CAPSULE BY MOUTH ONCE DAILY FOR PAIN AND MOOD DULOXETINE HCL 002 25075125 Active Carlton Hu MD Active TRAMADOL HCL 50 MG TABS TAKE 1 TABLET BY MOUTH THREE TIMES DAILY WITH EXTRA STRENGTH TYLENOL TRAMADOL HCL 56647270939 Active Carlton Hu MD Active ALPRAZOLAM 0.5 MG TABS TAKE 1 TABLET BY MOUTH ONCE DAILY NEEDED ALPRAZOLAM 35673003547 Active Carlton Hu MD Active GABAPENTIN 100 MG ORAL CAPSULE TAKE 1 CAPSULE BY MOUTH TWICE DAILY FOR FIBROMYALGIA GABAPENTIN 41304267272 Active Carlton Hu MD Active ELMIRON 100MG CAP TAKE 2 CAPSULES BY MOUTH IN THE MORNING AND 1 CAPSULE AT BEDTIME PENTOSAN POLYSULFATE SODIUM 55287712487 Active May Vivar MD Active TRIAMCINOLONE ACETONIDE 0.1 % EXTERNAL CREAM apply bid spari ngly to rash TRIAMCINOLONE ACETONIDE 11854193157 No Longer Active Carlton Hu MD Active TYLENOL WITH CODEINE #3 300-30 MG ORAL TABLET ACETAMINOPHEN-CODEINE 20663097723 No Longer Active Carlton Hu MD Active TYLENOL WITH CODEINE #3 300-30 MG ORAL TABLET 1-2 po q6hr PRN Pa in ACETAMINOPHEN-CODEINE 62758066415 No Longer Active David HERNANDEZ RN Active ACYCLOVIR 800 MG ORAL TABLET 1 po 5 times daily x 7 days ACYCLOVIR 20008706965 No Longer Active 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 SAFETY SCIENTIST Active TOPAMAX 100 MG ORAL TABLET 1 by mouth twice daily TOPIRAMATE 65893783053 Active Carlton Hu MD Active TRIAMCINOLONE ACETONIDE 0.1 % EXTERNAL OINTMENT Apply to affected areas TID PRN Rash/Itching for up 2 weeks TRIAMCINOLONE ACETON KAYLA 04185497905 No Longer Active 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 SAFETY SCIENTIST Active AMOXICILLIN 500 MG ORAL CAPSULE 1 cap by mouth twice daily 10/21 AMOXICILLIN 30817756626 No Longer Active 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 SAFETY SCIENTIST Active CYMBALTA 30 MG ORAL CAPSULE DELAYED RELEASE PARTICLES 1 cap by mouth daily for depression DULOXETINE HCL 40628369236 No Longer Active Carlton Hu MD Active TUSSIONEX PENNKINETIC ER 10-8 MG/5ML ORAL SUSPENSION E XTENDED RELEASE 5ml po q12hr PRN Cough HYDROCOD POLST-CHLORPHEN POLST 91044084723 Active 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 SAFETY SCIENTIST Active PREDNISONE 20 MG ORAL TABLET Take 2 tabs day 1 and 2 and 1 t ab days 3 and 4 PREDNISONE 15954409869 No Longer Active 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 SAFETY SCIENTIST Active DOXYCYCLINE HYCLATE 100 MG ORAL CAPSULE 1 cap by mouth twice latasha ly DOXYCYCLINE HYCLATE 49123335140 No Longer Active 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 SAFETY SCIENTIST Active TOPAMAX 100 MG ORAL TABLET Take 1 tablet po bid TOPIRAMATE 00926287880 No Longer Active 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 SAFETY SCIENTIST Active TUSSIONEX PENNKINETIC ER 10-8 MG/5ML ORAL SUSPENSION E XTENDED RELEASE 5ml po q12hr PRN Cough HYDROCOD POLST-CHLORPHEN POLST 5 9675404076 No Longer Active 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 SAFETY SCIENTIST Active AUGMENTIN 875-125 MG ORAL TABLET 1 po BID x 10 days 18/04/16 AMOXICILLIN-POT CLAVULANATE 28122672322 No Longer Active 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 SAFETY SCIENTIST Active PREDNISONE 50 MG ORAL TABLET Take 50 mg dialy for 6 day s 7 PREDNISONE 05066890487 No Longer Active 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 RICEN Active TUSSIONEX PENNKINETIC ER 10-8 MG/5ML ORAL SUSPENSION E XTENDED RELEASE 5ml po q12hr PRN Cough HYDROCOD POLST-CHLORPHEN POLST 5 9279421179 No Longer Active Cherelle Torres RN Active PREDNISONE 20 MG ORAL TABLET two tabs by mouth today, then one tab by mouth days two and three and four PREDNISONE 53253293698 No Lo nger Active Cherelle Torres RN Active AZITHROMYCIN 250 MG ORAL TABLET 2 po qd x 1 day, then 1 po q d x 4 days AZITHROMYCIN 72875146448 No Longer Active Ridge Bess DO Active PREDNISONE 20 MG ORAL TABLET 2 po qd x 5 days P REDNISONE 35148596904 No Longer Active Perez Mora MD Active PROAIR HFA 108 (90 BASE) MCG/ACT INHALATION AEROSOL SO LUTION 2 puffs four times a day as needed ALBUTEROL SULFATE 33113487711 No Long er Active Becky FUENTES Active ASPIRIN 81 MG ORAL TABLET 1 po qd ASPIRIN 01889133738 Active Carlton Hu MD Active PREDNISONE 20 MG ORAL TABLET 1 tab twice daily for 3 d ay, then one daily for three days PREDNISONE 78926560977 No Longer Active Carlton Hu MD Active AUGMENTIN 875-125 MG ORAL TABLET 1 po BID x 10 days 20 16/03/22 AMOXICILLIN-POT CLAVULANATE 15252493538 No Longer Active Elise Garcia APRN Active TERBINAFINE HCL 250 MG ORAL TABLET 1 qDay for nail fungus 7 TERBINAFINE HCL 62205748341 No Longer Active Carlton Hu MD A ctive AMOXICILLIN 500 MG ORAL CAPSULE 1 cap by mouth three times a day AMOXICILLIN 21998774705 No Longer Active Carlton Hu MD Active ELMIRON 100 MG ORAL CAPSULE 2 tablets in the am and 1 tablet at hs PENTOSAN POLYSULFATE SODIUM 25618744381 No Longer Active Robert Hu MD Active MUCINEX D 60-600 MG ORAL TABLET EXTENDED RELEASE 12 HOUR 1 t ab po q am PSEUDOEPHEDRINE-GUAIFENESIN 30128336041 No Longer Act nael Carlton Hu MD Active MUCINEX DM MAXIMUM STRENGTH 60-1200 MG ORAL TABLET EXT ENDED RELEASE 12 HOUR 1 tab po q am DEXTROMETHORPHAN-GUAIFENESIN 51610962612 No Longer Active Carlton Hu MD Active TUSSIONEX PENNKINETIC ER 10-8 MG/5ML ORAL SUSPENSION E XTENDED RELEASE 5ml po q12hr PRN Cough HYDROCOD POLST-CHLORPHEN POLST 5 1364730206 No Longer Active Carlton Hu MD Active POTASSIUM CHLORIDE ER 20 MEQ ORAL TABLET EXTENDED RELE ASE Take 1 by mouth 4 times daily for 7 days POTASSIUM CHLORIDE 67057176351 No Longer Active Carlton Hu MD Active ZITHROMAX 250 MG ORAL TABLET 2 po today, then 1 po q days 2-5 14/09/04 AZITHROMYCIN 52126731184 No Longer Active Elise Garcia APRN Active TUSSIONEX PENNKINETIC ER 10-8 MG/5ML ORAL SUSPENSION E XTENDED RELEASE 5 ml twice a day as needed for cough HYDROCOD POLST-CHLORPH EN POLST 06207588457 No Longer Active Elise Arell SAFETY SCIENTIST Active MONTELUKAST SODIUM 10 MG ORAL TABLET 1 po daily for Allergy MONTELUKAST SODIUM 95361006993 Active Carlton Hu MD Ac tive TUSSIONEX PENNKINETIC ER 10-8 MG/5ML ORAL SUSPENSION E XTENDED RELEASE 5ml po q12hr PRN Cough HYDROCOD POLST-CHLORPHEN POLST 5 1761317558 No Longer Active Hugo Restrepo MD Active LYRICA 100 MG ORAL CAPSULE Take 1 tab po BID for fibromyalgia 20 11/08/21 PREGABALIN 09735509799 No Longer Active Elise Garcia APRN A ctive PREDNISONE 20 MG ORAL TABLET 2 tabs daily for 3 days, 1 tab daily for 3 days, 1/2 tab daily for 2 days PREDNISONE 52553221217 No Longer Active Jillina Frakerriel SAFETY SCIENTIST Active TUSSIONEX PENNKINETIC ER 10-8 MG/5ML ORAL SUSPENSION E XTENDED RELEASE 5 mL PO q 12 hrs PRN cough HYDROCOD POLST-CHLORPHEN POLST 571596 72412 No Longer Active Jillina Frazell SAFETY SCIENTIST Active FLUTICASONE PROPIONATE 50 MCG/ACT NASAL SUSPENSION 2 s prays each nostril daily until bottle is empty FLUTICASONE PROPIONATE 487771615 99 No Longer Active Jillina Frazell SAFETY SCIENTIST Active ASMANEX 60 METERED DOSES 220 MCG/INH INHALATION AEROSO L POWDER BREATH ACTIVATED 1 puff bid with rinse after MOMETASONE FUROATE 3164913 4102 No Longer Active Jillina Cesarl SAFETY SCIENTIST Active ZITHROMAX Z-REYNA 250 MG ORAL TABLET 2 today, then 1 daily for 4 d ays AZITHROMYCIN 07000017955 No Longer Active Elise Garcia SAFETY SCIENTIST Active TUSSIONEX PENNKINETIC ER 10-8 MG/5ML ORAL SUSPENSION E XTENDED RELEASE 5ml po q12hr PRN Cough HYDROCOD POLST-CHLORPHEN POLST 5 3815014653 No Longer Active Elise Garcia APRN Active PREDNISONE 20 MG ORAL TABLET 2 tabs daily for 3 days, 1 tab daily for 3 days, 1/2 tab daily for 2 days PREDNISONE 39644232375 No Longer Active Jillina Frazell SAFETY SCIENTIST Active AMOXICILLIN 500 MG ORAL CAPSULE 2 po BID x 10 days 201 09/29/08 AMOXICILLIN 35271777112 No Longer Active Jillina Frazell SAFETY SCIENTIST Act nael SINGULAIR 10 MG ORAL TABLET 1 po qday for allergies 20 16/10/12 MONTELUKAST SODIUM 81137468006 No Longer Active Carlton Hu MD Active LEVAQUIN 500 MG ORAL TABLET 1 tablet by mouth daily 20 13/09/24 LEVOFLOXACIN 89296734129 No Longer Active Carlton Hu MD Acti ve FLUTICASONE PROPIONATE 50 MCG/ACT NASAL SUSPENSION 2 s prays each nostril daily for 2 weeks, then 1 spray each nostril daily. FLUTICASONE PROPIONATE 28078881500 Active David Lopes APRN Active ZITHROMAX 250 MG ORAL TABLET 2 po today, then 1 po q days 2-5 20 13/08/10 AZITHROMYCIN 40533358082 No Longer Active Elise Garcia APRN Active CEFDINIR 300 MG ORAL CAPSULE 1 po BID x 10 days CEFDINIR 55510750286 No Longer Active Carlton Hu MD Active ZOCOR 40 MG ORAL TABLET 1 tab by mouth daily SI MVASTATIN 53489716544 No Longer Active Carlton Hu MD Active CYCLOBENZAPRINE HCL 10 MG ORAL TABLET 1 tablet by mouth BID prn had pain CYCLOBENZAPRINE HCL 20187763651 No Longer Active Jayden Hu MD Active LEVOFLOXACIN 500 MG ORAL TABLET 1 tab PO daily x 10 days LEVOFLOXACIN 76656681334 No Longer Active Carlton Hu MD Acti ve PREDNISONE 20 MG ORAL TABLET 3 tab PO qd x 2d, 2 tab P O qd x 2d, 1 tab PO qd x 2d, 1/2 tab PO qd x 2d PREDNISONE 11070055201 No Lo nger Active Carlton Hu MD Active FLUTICASONE PROPIONATE 50 MCG/ACT NASAL SUSPENSION 1 t o 2 sprays each nostril daily FLUTICASONE PROPIONATE 78898520222 No Longer Ac matthew HERNANDEZ Active CHERATUSSIN AC 100-10 MG/5ML ORAL SYRUP 1 tsp by mouth every 4 hours as needed for cough GUAIFENESIN-CODEINE 60221930569 No Longe r Active Blaine HERNANDEZ Active PROMETHAZINE-CODEINE 6.25-10 MG/5ML ORAL SYRUP 1 tsp b y mouth every 6 hours if needed for cough PROMETHAZINE-CODEINE 08429243556 No Longer Active Blaine HERNANDEZ Active CHERATUSSIN AC 100-10 MG/5ML ORAL SYRUP 1 tsp by mouth every 4 hours as needed for cough GUAIFENESIN-CODEINE 47504029649 No Longe r Active Blaine HERNANDEZ Active ZITHROMAX Z-REYNA 250 MG ORAL TABLET 2 today, then 1 daily for 4 d ays AZITHROMYCIN 66533476665 No Longer Active Columba Raida Act nael ZITHROMAX 250 MG ORAL TABLET 2 po today, then 1 po q days 2-5 20 14/03/21 AZITHROMYCIN 94761360893 No Longer Active Carlton Hu MD Active ZITHROMAX Z-REYNA 250 MG ORAL TABLET 2 today, then 1 daily for 4 d ays AZITHROMYCIN 87051655611 No Longer Active Columba Raida Act nael AUGMENTIN 875-125 MG ORAL TABLET 1 po BID x 10 days 13/01/20 AMOXICILLIN-POT CLAVULANATE 55005916533 No Longer Active Diya De Guzman APRN Active ZITHROMAX 250 MG ORAL TABLET 2 po today, then 1 po q days 2-5 20 12/08/14 AZITHROMYCIN 03074161968 No Longer Active Carlton Hu MD Active PREMARIN 0.625 MG ORAL TABLET TAKE 1 TAB BY MOUTH DAILY ESTROGENS CONJUGATED 80478794894 No Longer Active Ridge Bess DO A ctive CYMBALTA 30 MG ORAL CAPSULE DELAYED RELEASE PARTICLES 1 cap by mouth daily DULOXETINE HCL 70233003575 No Longer Active Ridge tam DO Active AMOXICILLIN 500 MG ORAL CAPSULE 1 tab by mouth 3 times daily x 10 days AMOXICILLIN 52444376825 No Longer Active Carlton bustamante MD Active AMOXICILLIN 500 MG ORAL CAPSULE 1 tab by mouth 3 times daily x 10 days AMOXICILLIN 56253984880 No Longer Active Carlton bustamante MD Active PROMETHAZINE-CODEINE 6.25-10 MG/5ML ORAL SYRUP 1 tsp b y mouth every 8 hours prn cough PROMETHAZINE-CODEINE 09856079085 No Longer Acti ve Carlton Hu MD Active MEDROL 4 MG ORAL TABLET THERAPY PACK 6 pills x 1 day, then 5 pills x 1 day then 4 pills x 1 day, then 3 pills x 1 day, then 2 pills x 1 day, then 1 pill x 1 day, then stop METHYLPREDNISOLONE 95113452546 No Long er Active Perez Mora MD Active AZITHROMYCIN 250 MG ORAL TABLET 2 po qd x 1 day, then 1 po q d x 4 days AZITHROMYCIN 50439780786 No Longer Active Perez Ambriz MD Active SYMBICORT 160-4.5 MCG/ACT INHALATION AEROSOL 2 puffs bid wit h rinse after BUDESONIDE-FORMOTEROL FUMARATE 34639468474 N o Longer Active Perez Mora MD Active LYRICA 75 MG ORAL CAPSULE TAKE 1 CAPSULE BY MOUTH TWICE DAILY PREGABALIN 73795002412 No Longer Active Carlton Hu MD Acti ve TOPAMAX 25 MG ORAL TABLET 1 qHS x 1 week, then 1 BID x 1 week, then 1 qAM and 2 qHS x 1 week, then 2 BID (migraine prevention) T OPIRAMATE 42677859254 No Longer Active Jerica FUENTES Active TOPAMAX 50 MG ORAL TABLET take 1 tab po BID for migraines. 07/02 TOPIRAMATE 09250901824 No Longer Active Jerica FUENTES Active TRIAMCINOLONE ACETONIDE 0.1 % EXTERNAL CREAM apply three roger es daily prn rash TRIAMCINOLONE ACETONIDE 25799680417 No Longer Active Carlton Hu MD Active CHERATUSSIN AC 100-10 MG/5ML ORAL SYRUP 5ml po q6hr PRN Cough 20 13/04/14 GUAIFENESIN-CODEINE 38367890728 No Longer Active Carlton Hu MD Active MEDROL 4 MG ORAL TABLET THERAPY PACK 6 tabs on day 1, 5 tabs on day 2, 4 tabs on day 3, 3 tabs on day 4, 2 tabs on day 5, 1 tab on day 6 2013 METHYLPREDNISOLONE 24423656442 No Longer Active Perez Mora MD Active AZITHROMYCIN 250 MG ORAL TABLET 2 po qd x 1 day, then 1 po q d x 4 days AZITHROMYCIN 80624445293 No Longer Active Perez Ambriz MD Active PROPRANOLOL HCL 60 MG ORAL TABLET 1 PO Q D PROPRANOLOL HCL 20138973401 No Longer Active Perez Mora MD Activ e CHERATUSSIN AC 100-10 MG/5ML ORAL SYRUP take one tsp po Q 6h ours prn cough GUAIFENESIN-CODEINE 16972969248 No Longer Active Zia Mora MD Active AUGMENTIN 875-125 MG ORAL TABLET 1 tab by mouth twice daily with food AMOXICILLIN-POT CLAVULANATE 37762367328 No Longer Act nael Perez Mora MD Active CHERATUSSIN AC 100-10 MG/5ML ORAL SYRUP 1 tsp by mouth every 4 hours as needed for cough GUAIFENESIN-CODEINE 61832228861 No Longe r Active Hugo Restrepo MD Active ACETAMINOPHEN-CODEINE #3 300-30 MG ORAL TABLET 1 PO Q 4-6 HRS IL N PAIN ACETAMINOPHEN-CODEINE 05263185843 No Longer Active Hugo Restrepo MD Active LEVAQUIN 500 MG ORAL TABLET take one po QD LEVO FLOXACIN 82220358439 No Longer Active Griffin HERNANDEZ Active PREDNISONE 20 MG ORAL TABLET Take 3 tabs daily for 3 d ays, 2 tabs daily for 3 days, 1 tab daily for 3 days, 1/2 tab daily for 3 days 11/07 PREDNISONE 78687000532 No Longer Active Carlton Hu MD Acti ve AVELOX 400 MG ORAL TABLET 1 tab by mouth daily MOXIFLOXACIN HCL 69233653516 No Longer Active Carlton Hu MD Active CHERATUSSIN AC 100-10 MG/5ML ORAL SYRUP 1 tsp by mouth every 4 hours as needed for cough GUAIFENESIN-CODEINE 46727543724 No Longe r Active Hugo Restrepo MD Active AVELOX 400 MG ORAL TABLET 1 tab by mouth daily MOXIFLOXACIN HCL 22210891938 No Longer Active Marcy De La Rosa MD PhD Active TERBINAFINE HCL 250 MG ORAL TABLET 1 qDay T ERBINAFINE HCL 16676326839 No Longer Active Marcy De La Rosa MD PhD Active CHERATUSSIN AC 100-10 MG/5ML ORAL SYRUP 1 tsp by mouth every 4 hours as needed for cough GUAIFENESIN-CODEINE 06637430699 No Longe r Active Marcy De La Rosa MD PhD Active AVELOX 400 MG ORAL TABLET 1 tab by mouth daily MOXIFLOXACIN HCL 92911052752 No Longer Active Marcy De La Rosa MD PhD Active HYDROCODONE-ACETAMINOPHEN 5-325 MG ORAL TABLET 1 po q 6hr PRN co ugh HYDROCODONE-ACETAMINOPHEN 88512836685 No Longer Active Marcy De La Rosa MD PhD Active PREDNISONE 20 MG ORAL TABLET 2 tabs daily for 3 days, 1 tab daily for 3 days, 1/2 tab daily for 2 days PREDNISONE 79003867154 No Longer Active Carlton Hu MD Active CEFDINIR 300 MG ORAL CAPSULE by mouth twice a day 2011 CEFDINIR 83142872216 No Longer Active Carlton uH MD Acti ve ACETAMINOPHEN-CODEINE #3 300-30 MG ORAL TABLET 1 tablet po q 4-6 hrs prn pain ACETAMINOPHEN-CODEINE 50278458524 No Longer Active Ridge Bess DO Active ZITHROMAX 250 MG ORAL TABLET 2 po today, then 1 po q days 2-5 20 03/07/07 AZITHROMYCIN 12992230516 No Longer Active Carlton Hu MD Active CHERATUSSIN AC 100-10 MG/5ML ORAL SYRUP take 1 tsp po q4-6 h ours prn cough GUAIFENESIN-CODEINE 80068761089 No Longer Active Jayden Hu MD Active ACETAMINOPHEN-CODEINE #3 300-30 MG ORAL TABLET 1 PO Q 4-6 HR PRN PAIN ACETAMINOPHEN-CODEINE 75119304213 No Longer Active Da raimundo Hu MD Active LORTAB 7.5-500 MG/15ML ORAL ELIXIR 7.5 ml po q 4 hour prn cough HYDROCODONE-ACETAMINOPHEN 32515623766 No Longer Active Carlton Hu MD Active PREDNISONE 20 MG ORAL TABLET 1 po bid 3 days, then 1 po q day 3 days PREDNISONE 66276055261 No Longer Active Carlton Hu MD Active CEFDINIR 300 MG ORAL CAPSULE by mouth twice a day 2011 CEFDINIR 58831850605 No Longer Active Carlton Hu MD Acti ve CEFDINIR 300 MG ORAL CAPSULE by mouth twice a day 2010 CEFDINIR 08188442398 No Longer Active Carlton Hu MD Acti ve CEFDINIR 300 MG ORAL CAPSULE by mouth twice a day 2010 CEFDINIR 21230180289 No Longer Active Carlton Hu MD Acti ve TESSALON PERLES 100 MG ORAL CAPSULE 1 tablet by mouth 3 times daily as needed for cough BENZONATATE 79436701812 No Longer Active Carlton Hu MD Active CEFDINIR 300 MG ORAL CAPSULE by mouth twice a day 2010 CEFDINIR 13739156085 No Longer Active Carlton Hu MD Acti ve ZITHROMAX Z-REYNA 250 MG ORAL TABLET 2 today, then 1 daily for 4 d ays AZITHROMYCIN 61048393094 No Longer Active Hugo Restrepo MD Active TESSALON PERLES 100 MG ORAL CAPSULE 1 tablet by mouth 3 times daily as needed for cough TESSALON PERLES 100 MG ORAL CAPSULE 42246 7 BENZONATATE Inactive PREDNISONE 20 MG ORAL TABLET 1 po bid 3 days, then 1 po q day 3 days PREDNISONE 20 MG ORAL TABLET 212845 PREDNISONE [place] ctive LORTAB 7.5-500 MG/15ML ORAL ELIXIR 7.5 ml po q 4 hour prn cough LORTAB 7.5-500 MG/15ML ORAL ELIXIR HYDROCODONE-A CETAMINOPHEN Inactive ACETAMINOPHEN-CODEINE #3 300-30 MG ORAL TABLET 1 PO Q 4-6 HR PRN PAIN ACETAMINOPHEN-CODEINE #3 300-30 MG ORAL TABLET 9 77025 ACETAMINOPHEN-CODEINE Inactive CHERATUSSIN AC 100-10 MG/5ML ORAL SYRUP take 1 tsp po q4-6 h ours prn cough CHERATUSSIN AC 100-10 MG/5ML ORAL SYRUP 147069 GUAIFENESIN-CODEINE Inactive ACETAMINOPHEN-CODEINE #3 300-30 MG ORAL TABLET 1 tablet po q 4-6 hrs prn pain ACETAMINOPHEN-CODEINE #3 300-30 MG ORAL TABLET 377359 ACETAMINOPHEN-CODEINE Inactive HYDROCODONE-ACETAMINOPHEN 5-325 MG ORAL TABLET 1 po q 6hr PRN co ugh HYDROCODONE-ACETAMINOPHEN 5-325 MG ORAL TABLET 223972 HYDROCODONE-ACETAMINOPHEN Inactive AVELOX 400 MG ORAL TABLET 1 tab by mouth daily AVELOX 400 MG ORAL TABLET MOXIFLOXACIN HCL Inactive CHERATUSSIN AC 100-10 MG/5ML ORAL SYRUP 1 tsp by mouth every 4 hours as needed for cough CHERATUSSIN AC 100-10 MG/5ML ORAL SYRUP 9 68611 GUAIFENESIN-CODEINE Inactive TERBINAFINE HCL 250 MG ORAL TABLET 1 qDay 07/08 TERBINAFINE HCL 250 MG ORAL TABLET 183939 TERBINAFINE HCL Inactive CHERATUSSIN AC 100-10 MG/5ML ORAL SYRUP 1 tsp by mouth every 4 hours as needed for cough CHERATUSSIN AC 100-10 MG/5ML ORAL SYRUP 9 99385 GUAIFENESIN-CODEINE Inactive ACETAMINOPHEN-CODEINE #3 300-30 MG ORAL TABLET 1 PO Q 4-6 HRS IL N PAIN ACETAMINOPHEN-CODEINE #3 300-30 MG ORAL TABLET 825202 ACETAMINOPHEN-CODEINE Inactive CHERATUSSIN AC 100-10 MG/5ML ORAL SYRUP 1 tsp by mouth every 4 hours as needed for cough CHERATUSSIN AC 100-10 MG/5ML ORAL SYRUP 9 66929 GUAIFENESIN-CODEINE Inactive AUGMENTIN 875-125 MG ORAL TABLET 1 tab by mouth twice daily with food AUGMENTIN 875-125 MG ORAL TABLET AMOXICIL MADELINE-POT CLAVULANATE Inactive CHERATUSSIN AC 100-10 MG/5ML ORAL SYRUP take one tsp po Q 6h ours prn cough CHERATUSSIN AC 100-10 MG/5ML ORAL SYRUP 047680 GUAIFENESIN-CODEINE Inactive PROPRANOLOL HCL 60 MG ORAL TABLET 1 PO Q D PROPRANOLOL HCL 60 MG ORAL TABLET 907780 PROPRANOLOL HCL Inactive TOPAMAX 50 MG ORAL TABLET take 1 tab po BID for migraines. 07/02 TOPAMAX 50 MG ORAL TABLET 756315 TOPIRAMATE Inacti ve TOPAMAX 25 MG ORAL TABLET 1 qHS x 1 week, then 1 BID x 1 week, then 1 qAM and 2 qHS x 1 week, then 2 BID (migraine prevention) TOPAMAX 25 MG ORAL TABLET 558261 TOPIRAMATE Inactive LYRICA 75 MG ORAL CAPSULE TAKE 1 CAPSULE BY MOUTH TWICE DAILY LYRICA 75 MG ORAL CAPSULE 610424 PREGABALIN Inactive SYMBICORT 160-4.5 MCG/ACT INHALATION AEROSOL 2 puffs bid wit h rinse after SYMBICORT 160-4.5 MCG/ACT INHALATION AEROSOL 124 4246 BUDESONIDE-FORMOTEROL FUMARATE Inactive PROMETHAZINE-CODEINE 6.25-10 MG/5ML ORAL SYRUP 1 tsp b y mouth every 8 hours prn cough PROMETHAZINE-CODEINE 6.25-10 MG/ 5ML ORAL SYRUP 890166 PROMETHAZINE-CODEINE Inactive CYMBALTA 30 MG ORAL CAPSULE DELAYED RELEASE PARTICLES 1 cap by mouth daily CYMBALTA 30 MG ORAL CAPSULE DELAYED RELE ASE PARTICLES 277711 DULOXETINE HCL Inactive PREMARIN 0.625 MG ORAL TABLET TAKE 1 TAB BY MOUTH DAILY PREMARIN 0.625 MG ORAL TABLET ESTROGENS CONJUGATED Inactive CHERATUSSIN AC 100-10 MG/5ML ORAL SYRUP 1 tsp by mouth every 4 hours as needed for cough CHERATUSSIN AC 100-10 MG/5ML ORAL SYRUP 9 63216 GUAIFENESIN-CODEINE Inactive PROMETHAZINE-CODEINE 6.25-10 MG/5ML ORAL SYRUP 1 tsp b y mouth every 6 hours if needed for cough PROMETHAZINE-CODEINE 6.25-10 MG/5ML ORAL SYRUP 191281 PROMETHAZINE-CODEINE Inactive CHERATUSSIN AC 100-10 MG/5ML ORAL SYRUP 1 tsp by mouth every 4 hours as needed for cough CHERATUSSIN AC 100-10 MG/5ML ORAL SYRUP 9 85037 GUAIFENESIN-CODEINE Inactive FLUTICASONE PROPIONATE 50 MCG/ACT NASAL SUSPENSION 1 t o 2 sprays each nostril daily FLUTICASONE PROPIONATE 50 MCG/AC T NASAL SUSPENSION 6398518 FLUTICASONE PROPIONATE Inactive PREDNISONE 20 MG ORAL TABLET 3 tab PO qd x 2d, 2 tab P O qd x 2d, 1 tab PO qd x 2d, 1/2 tab PO qd x 2d PREDNISONE 20 MG ORAL TAB LET 288356 PREDNISONE Inactive LEVOFLOXACIN 500 MG ORAL TABLET 1 tab PO daily x 10 days LEVOFLOXACIN 500 MG ORAL TABLET 467764 LEVOFLOXACIN Inactive CYCLOBENZAPRINE HCL 10 MG ORAL TABLET 1 tablet by mouth BID prn had pain CYCLOBENZAPRINE HCL 10 MG ORAL TABLET 812582 CYCLOBENZAPRINE HCL Inactive ZOCOR 40 MG ORAL TABLET 1 tab by mouth daily 4 ZOCOR 40 MG ORAL TABLET 594697 SIMVASTATIN Inactive TUSSIONEX PENNKINETIC ER 10-8 MG/5ML [...] FLUTICASONE PROPIO EFE 50 MCG/ACT NASAL SUSPENSION [id number] FLUTICASONE PROPIONATE Inactive TUSSIONEX PENNKINETIC ER 10-8 MG/5ML ORAL SUSPENSION E XTENDED RELEASE 5 mL PO q 12 hrs PRN cough TUSSIONEX PENNKINETI C ER 10-8 MG/5ML ORAL SUSPENSION EXTENDED RELEASE HYDROCOD POLST-CHLORPHEN POLST I nactive LYRICA 100 MG ORAL CAPSULE Take 1 tab po BID for fibromyalgia 20 11/08/21 LYRICA 100 MG ORAL CAPSULE 106146 PREGABALIN Inact nael TUSSIONEX PENNKINETIC ER 10-8 [...] three days PREDNISONE 20 MG ORAL TABLET 907594 PREDNIS ONE Inactive PROAIR HFA 108 (90 BASE) MCG/ACT INHALATION AEROSOL SO LUTION 2 puffs four times a day as needed PROAIR HFA 108 (90 B ASE) MCG/ACT INHALATION AEROSOL SOLUTION ALBUTEROL SULFATE Inactive PREDNISONE 20 MG ORAL TABLET two tabs by mouth today, then one tab by mouth days two and three and four PREDNISONE 20 MG ORAL TAB LET [id number] PREDNISONE Inactive TUSSIONEX PENNKINETIC ER 10-8 MG/5ML [...] bid 04/20 TOPAMAX 100 MG ORAL TABLET 239900 TOPIRAMATE Inactive CYMBALTA 30 MG ORAL CAPSULE DELAYED RELEASE PARTICLES 1 cap by mouth daily for depression CYMBALTA 30 MG ORAL CAPSULE DELAYED RELEASE PARTICLES [id number] DULOXETINE HCL Inactive TYLENOL WITH CODEINE #3 300-30 MG ORAL TABLET 1-2 po q6hr PRN Pa in TYLENOL WITH CODEINE #3 300-30 MG ORAL TABLET 958375 ACETAMINOPHEN-CODEINE Inactive TYLENOL WITH CODEINE #3 300-30 MG ORAL TABLET TYLENOL WITH CODEINE #3 300-30 MG ORAL TABLET 945512 ACETAMINOPHEN-CODEINE Inactive TRIAMCINOLONE ACETONIDE 0.1 % EXTERNAL CREAM apply bid spari ngly to rash TRIAMCINOLONE ACETONIDE 0.1 % EXTERNAL CREAM 101 4314 TRIAMCINOLONE ACETONIDE Inactive GUAIFENESIN-CODEINE 100-10 MG/5ML ORAL SYRUP 1 tsp PO q6h PRN co ugh GUAIFENESIN-CODEINE 100-10 MG/5ML ORAL SYRUP 196086 GUAIFENESIN-CODEINE Inactive ATORVASTATIN CALCIUM 10 MG ORAL TABLET 1 pill by mouth night ly, for cholesterol ATORVASTATIN CALCIUM 10 MG ORAL TABLET 575238 ATORVASTATIN CALCIUM Inactive PAXIL 40 MG ORAL TABLET take 1 tab po qday for depression 0 PAXIL 40 MG ORAL TABLET 2788107 PAROXETINE HCL Inactive ZITHROMAX Z-REYNA 250 MG ORAL TABLET 2 today, then 1 daily for 4 d ays ZITHROMAX Z-REYNA 250 MG ORAL TABLET 125295 AZITHROMYCIN Inactive CEFDINIR 300 MG ORAL CAPSULE [...] 2-08 1703/07/07 ZITHROMAX 250 MG ORAL TABLET 319641 AZITHROMYCIN [place] [facility] CEFDINIR 300 MG ORAL CAPSULE by mouth twice a day 2011 CEFDINIR 300 MG ORAL CAPSULE [id number] CEFDINIR Inactive PREDNISONE 20 MG ORAL TABLET 2 tabs daily for 3 days, 1 tab daily for 3 days, 1/2 tab daily for 2 days PREDNISONE 20 MG ORAL T ABLET 666007 PREDNISONE Inactive AVELOX 400 MG ORAL TABLET [...] days 11/07 PREDNISONE 20 MG ORAL TABLET 992608 PREDNISONE Inactive LEVAQUIN 500 MG ORAL TABLET take one po QD LEVAQUIN 500 MG ORAL TABLET 740653 LEVOFLOXACIN Inactive AZITHROMYCIN 250 MG ORAL TABLET 2 po qd x 1 day, then 1 po q d x 4 days AZITHROMYCIN 250 MG ORAL TABLET 431451 AZITHROMY GIOVANNI Inactive MEDROL 4 MG ORAL TABLET THERAPY PACK 6 tabs on day 1, 5 tabs on day 2, 4 tabs on day 3, 3 tabs on day 4, 2 tabs on day 5, 1 tab on day 6 2013 MEDROL 4 MG ORAL TABLET THERAPY PACK 444488 METHYLPREDNISOLONE [place] [facility] CHERATUSSIN AC 100-10 MG/5ML ORAL SYRUP 5ml po q6hr PRN Cough 20 13/04/14 CHERATUSSIN AC 100-10 MG/5ML ORAL SYRUP 013093 GUAIFENE SIN-CODEINE Inactive TRIAMCINOLONE ACETONIDE 0.1 % EXTERNAL CREAM apply three roger es daily prn rash TRIAMCINOLONE ACETONIDE 0.1 % EXTERNAL CREAM 101 4314 TRIAMCINOLONE ACETONIDE Inactive AZITHROMYCIN 250 MG ORAL TABLET 2 po qd x 1 day, then 1 po q d x 4 days AZITHROMYCIN 250 MG ORAL TABLET 839260 AZITHROMY GIOVANNI Inactive MEDROL 4 MG ORAL TABLET THERAPY PACK 6 pills x 1 day, then 5 pills x 1 day then 4 pills x 1 day, then 3 pills x 1 day, then 2 pills x 1 day, then 1 pill x 1 day, then stop MEDROL 4 MG ORAL TABLET THERAPY PACK 330458 METHYLPREDNISOLONE Inactive AMOXICILLIN 500 MG ORAL CAPSULE 1 tab by mouth 3 times daily x 10 days AMOXICILLIN 500 MG ORAL CAPSULE 139068 AMOXICILL IN Inactive AMOXICILLIN 500 MG ORAL CAPSULE 1 tab by mouth 3 times daily x 10 days AMOXICILLIN 500 MG ORAL CAPSULE 940787 AMOXICILL IN Inactive ZITHROMAX 250 MG ORAL TABLET 2 po today, then 1 po q days 2-5 20 12/08/14 ZITHROMAX 250 MG ORAL TABLET 160404 AZITHROMYCIN [facility] [facility] AUGMENTIN 875-125 MG ORAL TABLET 1 po BID x 10 days 20 13/01/20 AUGMENTIN 875-125 MG ORAL TABLET AMOXICILLIN-POT CLAVULANATE Inactive ZITHROMAX Z-REYNA 250 MG ORAL TABLET 2 today, then 1 daily for 4 d ays ZITHROMAX Z-REYNA 250 MG ORAL TABLET 448332 AZITHROMYCIN Inactive ZITHROMAX 250 MG ORAL TABLET 2 po today, then 1 po q days 2-5 20 14/03/21 ZITHROMAX 250 MG ORAL TABLET 691962 AZITHROMYCIN [place] ctive ZITHROMAX Z-REYNA 250 MG ORAL TABLET 2 today, then 1 daily for 4 d ays ZITHROMAX Z-REYNA 250 MG ORAL TABLET 617927 AZITHROMYCIN Inactive CEFDINIR 300 MG ORAL CAPSULE 1 po BID x 10 days 06/21 CEFDINIR 300 MG ORAL CAPSULE 986652 CEFDINIR Inactive ZITHROMAX 250 MG ORAL TABLET 2 po today, then 1 po q days 2-5 20 13/08/10 ZITHROMAX 250 MG ORAL TABLET 150904 AZITHROMYCIN [place] [facility] LEVAQUIN 500 MG ORAL TABLET 1 tablet by mouth daily 13/09/24 LEVAQUIN 500 MG ORAL TABLET 631513 LEVOFLOXACIN Inactive SINGULAIR 10 MG ORAL TABLET 1 po qday for allergies 20 14/01/12 SINGULAIR 10 MG ORAL TABLET 588931 MONTELUKAST SODIUM Inactive AMOXICILLIN 500 MG ORAL CAPSULE 2 po BID x 10 days 201 09/29/08 AMOXICILLIN 500 MG ORAL CAPSULE 312335 AMOXICILLIN Inactive PREDNISONE 20 MG ORAL TABLET 2 tabs daily for 3 days, 1 tab daily for 3 days, 1/2 tab daily for 2 days PREDNISONE 20 MG ORAL T ABLET 895289 PREDNISONE Inactive ZITHROMAX Z-REYNA 250 MG ORAL TABLET 2 today, then 1 daily for 4 d ays ZITHROMAX Z-REYNA 250 MG ORAL TABLET 064705 AZITHROMYCIN Inactive PREDNISONE 20 MG ORAL TABLET 2 tabs daily for 3 days, 1 tab daily for 3 days, 1/2 tab daily for 2 days PREDNISONE 20 MG ORAL T ABLET 251184 PREDNISONE Inactive ZITHROMAX 250 MG ORAL TABLET 2 po today, then 1 po q days 2-5 20 14/09/04 ZITHROMAX 250 MG ORAL TABLET 738805 AZITHROMYCIN [place] ctive AMOXICILLIN 500 MG ORAL CAPSULE 1 cap by mouth three times a day AMOXICILLIN 500 MG ORAL CAPSULE 987625 AMOXICILLIN Inactive TERBINAFINE HCL 250 MG ORAL TABLET 1 qDay for nail fungus 7 TERBINAFINE HCL 250 MG ORAL TABLET 224938 TERBINAFINE HCL Inact nael AUGMENTIN 875-125 MG ORAL TABLET 1 po BID x 10 days 16/03/22 AUGMENTIN 875-125 MG ORAL TABLET AMOXICILLIN-POT CLAVULANATE Inactive PREDNISONE 20 MG ORAL TABLET 2 po qd x 5 days PREDNISONE 20 MG ORAL TABLET 299064 PREDNISONE Inactive AZITHROMYCIN 250 MG ORAL TABLET 2 po qd x 1 day, then 1 po q d x 4 days AZITHROMYCIN 250 MG ORAL TABLET 230154 AZITHROMY GIOVANNI Inactive PREDNISONE 50 MG ORAL TABLET Take 50 mg dialy for 6 day s 7 PREDNISONE 50 MG ORAL TABLET 333719 PREDNISONE Inactive AUGMENTIN 875-125 MG ORAL TABLET 1 po BID x 10 days 18/04/16 AUGMENTIN 875-125 MG ORAL TABLET AMOXICILLIN-POT CLAVULANATE Inactive DOXYCYCLINE HYCLATE 100 MG ORAL CAPSULE 1 cap by mouth twice latasha ly DOXYCYCLINE HYCLATE 100 MG ORAL CAPSULE 2839302 DOXYCYCL INE HYCLATE Inactive PREDNISONE 20 MG ORAL TABLET Take 2 tabs day 1 and 2 and 1 t ab days 3 and 4 PREDNISONE 20 MG ORAL TABLET 494247 PREDNISONE Inactive AMOXICILLIN 500 MG ORAL CAPSULE 1 cap by mouth twice daily 10/21 AMOXICILLIN 500 MG ORAL CAPSULE 986765 AMOXICILLIN Inactive TRIAMCINOLONE ACETONIDE 0.1 % EXTERNAL OINTMENT Apply to affected areas TID PRN Rash/Itching for up 2 weeks TRIAMCINOLON E ACETONIDE 0.1 % EXTERNAL OINTMENT 4162757 TRIAMCINOLONE ACETONIDE Inactive ACYCLOVIR 800 MG ORAL TABLET 1 po 5 times daily x 7 days ACYCLOVIR 800 MG ORAL TABLET 381288 ACYCLOVIR Inactive AMOXICILLIN-POT CLAVULANATE 875-125 MG ORAL TABLET 1 pill by mouth twice daily AMOXICILLIN-POT CLAVULANATE 875-125 MG ORAL TABL ET 888939 AMOXICILLIN-POT CLAVULANATE Inactive Vital Signs Date Name [...] Panel - Chemistry sodium, serum 137 mmol/L 240-940 2708/10/08 carbon dioxide, venous blood 29.9 mmol/L 21.0-32 [...] 0.50 mg/dL 0.00-1.00 cholesterol, serum 324 mg/dL 923-951 2985/10/08 triglyceride, serum, fasting 130 mg/dL 30-200 HDL [...] 50-136 Encounters Code Encounter Date Provider Facility CPT-60876 [id number] Vst-Est Level III 11:01:08 CDT Ra joe Lopes [facility] CPT-78570 Level 3 Est. Patient 14:41:20 DISC RECORDIST David lion [facility] CPT-71311 [id number] Vst-Est Level IV 09:06:31 C ESAU Hu MD [facility] CPT-83794 Level 3 Est. Patient 14:16:41 CDT David Tin dle [facility] CPT-65234 Level 3 Est. Patient 13:57:55 CDT David Tin dle [facility] CPT-73389 Level 3 Est. Patient 16:08:07 CDT David Tin dle [facility] CPT-49087 Level 3 Est. Patient 16:53:54 CDT May haas MD [facility]-41563 [id number] Vst-Est Level IV 08:41:[address] Carlton Hu MD [facility] CPT-46275 Level 3 Est. Patient 09:46:49 DISC RECORDIST David Muñiz dle [facility] CPT-23566 [id number] Vst-Est Level III 11:12:16 CDT Yanet Bess DO [facility] CPT-27912 Level 3 Est. Patient 11:34:49 DISC RECORDIST Perez Mora MD [facility] CPT-58053 Level 4 Est. Patient 09:51:32 DISC RECORDIST Carlton irch MD [facility] CPT-02707 Level 3 Est. Patient 10:26:00 DISC RECORDIST Elise Are [facility] CPT-45441 Level 3 Est. Patient 13:35:41 DISC RECORDIST Carlton rich MD [facility] CPT-53853 Level 3 Est. Patient 10:03:52 DISC RECORDIST Carlton rich MD [facility] CPT-71760 Level 3 Est. Patient 12:17:50 CDT Hugo Restrepo MD [facility] CPT-79224 Level 3 Est. Patient 13:42:38 CDT Elise Are ll [facility] CPT-49462 Level 3 Est. Patient 13:23:51 CDT Diya cobian [facility] CPT-69256 Level 3 Est. Patient 14:22:19 DISC RECORDIST Diya cobian [facility] CPT-33982 Level 3 Est. Patient 10:11:46 CDT Carlton rich MD [facility] CPT-10108 Level 3 Est. Patient 17:29:43 CDT Elise Are [facility] CPT-77225 Level 3 Est. Patient 11:58:06 CDT Elise Are ll [facility] CPT-42646 Level 4 Est. Patient 14:36:51 CDT Carlton rich MD [facility]-34605 Level 3 Est. Patient 18:16:00 DISC RECORDIST Blaine Freeman [facility]-89102 Level 3 Est. Patient 09:45:49 DISC RECORDIST Carlton rich MD [facility] CPT-91914 Level 3 Est. Patient 13:19:20 CDT Carlton rich MD [facility] CPT-05232 Level 3 Est. Patient 13:06:43 CDT Ridge tam DO [facility] CPT-58985 Level 3 Est. Patient 10:03:07 CDT Perez Mora MD [facility] CPT-17101 Level 3 Est. Patient 19:50:35 DISC RECORDIST Carlton rich MD [facility] CPT-12405 Level 4 Est. Patient 18:05:01 DISC RECORDIST Carlton rich MD [facility] CPT-03142 Level 3 Est. Patient 10:45:55 DISC RECORDIST Hugo Restrepo MD [facility]-86300 Level 3 Est. Patient 14:12:49 CDT Griffin lincoln [facility] CPT-48742 Level 3 Est. Patient 17:37:24 CDT Carlton rich MD [facility] CPT-81211 Level 3 Est. Patient 16:51:54 CDT Carlton rich MD [facility] CPT-64345 Level 3 Est. Patient 12:18:11 CDT Hugo Restrepo MD [facility] CPT-53509 Level 3 Est. Patient 11:30:25 CDT Marcy crisostomo MD PhD [facility] CPT-38112 Level 3 Est. Patient 12:00:47 DISC RECORDIST Carlton rich MD [facility] CPT-63904 Level 3 Est. Patient 16:31:06 DISC RECORDIST Carlton rich MD [facility] CPT-88563 Level 3 Est. Patient 16:23:24 DISC RECORDIST Ridge tam [facility] CPT-47525 Level 3 Est. Patient 12:34:12 CDT Carlton rich MD [facility] CPT-96388 Level 2 Est. Patient 15:43:33 CDT Robi armstrong MD [facility] CPT-55271 Level 4 Est. Patient 14:04:44 CDT Carlton rich MD [facility] CPT-39694 Level 3 Est. Patient 05:47:59 CDT Ridge tam [facility] CPT-63420 Level 3 Est. Patient 13:12:53 DISC RECORDIST Carlton rich MD [facility] CPT-94790 Level 3 Est. Patient 14:26:53 CDT Hugo Restrepo MD [facility] Procedures Code Procedure Name Date Entry Date Standard Desc ription [id number] ([id number] 2P) Patient Reason Influenza immu nization not administered 14:13:39 DISC RECORDIST CPT-31849 Venipuncture Draw Fee 15:53:34 CDT CPT-000 Give Appropriate Flu Vaccine 14:14:31 CDT 2 CPT-J1040 Depo Medrol 80 mg (Methyl Prednisolone A cetate) 10:42:44 CDT CPT-J1100 Decadron 8mg (Dexamethasone) 10:42:44 CDT 2 CPT-J0696 Rocephin 1gm Inj Solr 14:32:13 CDT CPT-J1020 Depo Medrol 60 mg (Methyl Prednisolone A cetate) 14:32:13 CDT CPT-J1100 Decadron 6mg (Dexamethasone) 14:32:13 CDT 2 CPT-45216 Hip bilat min 2V w AP pelvis 13:16:20 CDT 2 CPT-37590 Pelvis only 13:07:33 CDT CPT-80339 Spec Collection and Handling Fee 11:25:12 C DT CPT-01081 Fluzone Quadrivalent Intramuscular Suspe nsion 0.5 ML 14:31:55 CDT CPT-47460 Abx/Therapy Injection 13:28:47 DISC RECORDIST CPT-J2930 Solu Medrol 125 mg (Methyl Prednisolone Sodium Succinate) 12:00:47 DISC RECORDIST CPT-44956 Venipuncture Draw Fee 11:33:31 CDT CPT-87275 EKG Trac and Interp 11:21:09 CDT CPT-11113 Chest 2V Frontal and Lat 11:21:09 CDT 12/15 CPT-80690 Venipuncture Draw Fee 08:02:34 CDT CPT-55671 Chest 2V Frontal and Lat 05:47:59 CDT 06/05
--- OUTSIDE RECORDS SUMMARY | 2019-10-08 08:43 | XMS REPORT | Clinical Summary ---
Author Author Caitlin, Juliana Martinez Organization [facility] Address Unknown Phone Unavailable Allergies, Adverse [...] OF DEFINED SUBPOPULATION V70.5 Act nael [facility] examination of defined subpopulat ions Hip pain, left 719.45 Active Ridge Bess DO Pain in joint involving pelvic region and thigh Pelvic pain, acute 789.09 Resolved Hugo gilmore MD Abdominal pain, other specified site; multiple sites Sinusitis 473.9 Resolved uHgo Restrepo MD Unspecified sinusitis (chronic) Bronchitis-Acute 466.0 [...] of un specified site Pharyngitis 462 Active Huog Restrepo MD Acute pharyngitis Onychomycosis 112.3 Active [...] 35.0-35.9, adult BMI 35-35.9 Refinement 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 DOCUMENT REVIEW ATTORNEY Body Mass Index 35.0-35.9, adult BMI 33-33.9 Refinement 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 DOCUMENT REVIEW ATTORNEY Body Mass Index 35.0-35.9, adult BMI 34-34.9 Active 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 DOCUMENT REVIEW ATTORNEY Body Mass Index 35.0-35.9, adult Upper respiratory [...] unspecified Obesity Class II (BMI 35-39.9) Refinement Ran alen Lopes APRN Obesity, unspecified Obesity Class I [...] throat 462 Active 201 12/06/23 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 DOCUMENT REVIEW ATTORNEY Acute pharyngitis Shingles 053.9 Active 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 DOCUMENT REVIEW ATTORNEY Herpes zoster without mention of complication Allergic rhinitis, seasonal 477.0 Active Carlton Hu MD Allergic rhinitis due to pollen IBS (irritable bowel syndrome) 564.1 Active 01/06 Carlton Hu MD Irritable bowel syndrome GERD 530.81 Active aCrlton Hu MD Esophageal reflux Cough, non-productive 786.2 [...] DERMATITIS ICD-692.9 Inactive Marcy crisostomo MD PhD Pelvic pain, acute ICD-789.09 Inactive Hugo Restrepo MD Sinusitis ICD-473.9 Inactive Hugo Restrepo MD Bronchitis-Acute ICD-466.0 Inactive Hugo dominguez MD URI - acute ICD-465.9 Inactive Hugo Restrepo MD Pharyngitis acute ICD-462 Inactive Hugo gore MD Rhinitis, acute ICD-460 Inactive Hugo Ochao MD Sinusitis ICD-473.9 Inactive uHgo Restrepo MD Bronchitis ICD-490 Inactive Hugo Restrepo MD 201 10/02/29 URI ICD-465.9 Inactive Ridge Bess DO SINUSITIS, ACUTE ICD-461.9 Inactive Hugo dominguez MD Medication List Medication Instructions Start Date Stop Date Generic Name NDC Status Provider Patient Instruction TRAMADOL HCL 50 MG TABS TAKE 1 TABLET BY MOUTH THREE TIMES DAILY WITH EXTRA STRENGTH TYLENOL TRAMADOL HCL [id number] Active Jayden Hu MD Active AMOXICILLIN-POT CLAVULANATE 875-125 MG ORAL TABLET 1 pill by mouth twice daily AMOXICILLIN-POT CLAVULANATE 21216832516 No Longer Act nael David Lopes APRN Active PAXIL 40 MG ORAL TABLET take 1 tab po qday for depression 0 PAROXETINE HCL 37453757325 No Longer Active David Lopes APRN Acti ve ATORVASTATIN CALCIUM 10 MG ORAL TABLET 1 pill by mouth night ly, for cholesterol ATORVASTATIN CALCIUM 59873627250 No Longer Active Brendon Lopes APRN Active GUAIFENESIN-CODEINE 100-10 MG/5ML ORAL SYRUP 1 tsp PO q6h PRN co ugh GUAIFENESIN-CODEINE 14826874385 No Longer Active David Lopes APRN Active TOPIRAMATE 100 MG ORAL TABLET Take 1 tablet by mouth twice daily 19/04/21 TOPIRAMATE 54621798709 Active Carlton Hu MD Active PAROXETINE HCL 40 MG TABS TAKE 1 TABLET BY MOUTH ONCE DAILY FOR DEPRESSION PAROXETINE HCL 84693379162 Active Carlton Hu MD Active HYDROCHLOROTHIAZIDE 25 MG ORAL TABLET Take 1 tablet by mouth once daily HYDROCHLOROTHIAZIDE 80838804157 Active Carlton Hu MD Active AMOXICILLIN-POT CLAVULANATE 875-125 MG ORAL TABLET 1 pill by mouth twice daily AMOXICILLIN-POT CLAVULANATE 90668850857 No Longer Act nael David Lopes APRN Active DULOXETINE HCL 60 MG ORAL CAPSULE DELAYED RELEASE PART ICLES TAKE 1 CAPSULE BY MOUTH ONCE DAILY FOR PAIN AND MOOD DULOXETINE HCL 002 28755189 Active Carlton Hu MD Active ALPRAZOLAM 0.5 MG TABS TAKE 1 TABLET BY MOUTH ONCE DAILY NEEDED ALPRAZOLAM 33173194967 Active Carlton Hu MD Active GABAPENTIN 100 MG ORAL CAPSULE TAKE 1 CAPSULE BY MOUTH TWICE DAILY FOR FIBROMYALGIA GABAPENTIN 15693757995 Active Carlton Hu MD Active ELMIRON 100MG CAP TAKE 2 CAPSULES BY MOUTH IN THE MORNING AND 1 CAPSULE AT BEDTIME PENTOSAN POLYSULFATE SODIUM 95552391400 Active May Vivar MD Active TRIAMCINOLONE ACETONIDE 0.1 % EXTERNAL CREAM apply bid spari ngly to rash TRIAMCINOLONE ACETONIDE 83237150793 No Longer Active Carlton Hu MD Active TYLENOL WITH CODEINE #3 300-30 MG ORAL TABLET ACETAMINOPHEN-CODEINE 35134016093 No Longer Active Carlton Hu MD Active TYLENOL WITH CODEINE #3 300-30 MG ORAL TABLET 1-2 po q6hr PRN Pa in ACETAMINOPHEN-CODEINE 38917378533 No Longer Active David HERNANDEZ RN Active ACYCLOVIR 800 MG ORAL TABLET 1 po 5 times daily x 7 days ACYCLOVIR 93678394938 No Longer Active 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 DOCUMENT REVIEW ATTORNEY Active TOPAMAX 100 MG ORAL TABLET 1 by mouth twice daily TOPIRAMATE 76964939662 Active Carlton Hu MD Active TRIAMCINOLONE ACETONIDE 0.1 % EXTERNAL OINTMENT Apply to affected areas TID PRN Rash/Itching for up 2 weeks TRIAMCINOLONE ACETON KAYLA 34884564933 No Longer Active 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 DOCUMENT REVIEW ATTORNEY Active AMOXICILLIN 500 MG ORAL CAPSULE 1 cap by mouth twice daily 10/21 AMOXICILLIN 71594165226 No Longer Active 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 DOCUMENT REVIEW ATTORNEY Active CYMBALTA 30 MG ORAL CAPSULE DELAYED RELEASE PARTICLES 1 cap by mouth daily for depression DULOXETINE HCL 66268008619 No Longer Active Carlton Hu MD Active TUSSIONEX PENNKINETIC ER 10-8 MG/5ML ORAL SUSPENSION E XTENDED RELEASE 5ml po q12hr PRN Cough HYDROCOD POLST-CHLORPHEN POLST 40829630252 Active 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 DOCUMENT REVIEW ATTORNEY Active PREDNISONE 20 MG ORAL TABLET Take 2 tabs day 1 and 2 and 1 t ab days 3 and 4 PREDNISONE 48628071323 No Longer Active 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 DOCUMENT REVIEW ATTORNEY Active DOXYCYCLINE HYCLATE 100 MG ORAL CAPSULE 1 cap by mouth twice latasha ly DOXYCYCLINE HYCLATE 07202884561 No Longer Active 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 DOCUMENT REVIEW ATTORNEY Active TOPAMAX 100 MG ORAL TABLET Take 1 tablet po bid TOPIRAMATE 16560321017 No Longer Active 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 DOCUMENT REVIEW ATTORNEY Active TUSSIONEX PENNKINETIC ER 10-8 MG/5ML ORAL SUSPENSION E XTENDED RELEASE 5ml po q12hr PRN Cough HYDROCOD POLST-CHLORPHEN POLST 5 0196041459 No Longer Active 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 DOCUMENT REVIEW ATTORNEY Active AUGMENTIN 875-125 MG ORAL TABLET 1 po BID x 10 days 18/04/16 AMOXICILLIN-POT CLAVULANATE 02201368649 No Longer Active 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 DOCUMENT REVIEW ATTORNEY Active PREDNISONE 50 MG ORAL TABLET Take 50 mg dialy for 6 day s 7 PREDNISONE 71834473645 No Longer Active 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 DOCUMENT REVIEW ATTORNEY Active TUSSIONEX PENNKINETIC ER 10-8 MG/5ML ORAL SUSPENSION E XTENDED RELEASE 5ml po q12hr PRN Cough HYDROCOD POLST-CHLORPHEN POLST 5 3662911859 No Longer Active Cherelle Torres RN Active PREDNISONE 20 MG ORAL TABLET two tabs by mouth today, then one tab by mouth days two and three and four PREDNISONE 56481960608 No Lo nger Active Cherelle Torres RN Active AZITHROMYCIN 250 MG ORAL TABLET 2 po qd x 1 day, then 1 po q d x 4 days AZITHROMYCIN 13267307390 No Longer Active Ridge Bess DO Active PREDNISONE 20 MG ORAL TABLET 2 po qd x 5 days P REDNISONE 17737650986 No Longer Active Perez Mora MD Active PROAIR HFA 108 (90 BASE) MCG/ACT INHALATION AEROSOL SO LUTION 2 puffs four times a day as needed ALBUTEROL SULFATE 36223366654 No Long er Active Becky FUENTES Active ASPIRIN 81 MG ORAL TABLET 1 po qd ASPIRIN 15901223137 Active Carlton Hu MD Active PREDNISONE 20 MG ORAL TABLET 1 tab twice daily for 3 d ay, then one daily for three days PREDNISONE 68116792689 No Longer Active Carlton Hu MD Active AUGMENTIN 875-125 MG ORAL TABLET 1 po BID x 10 days 20 16/03/22 AMOXICILLIN-POT CLAVULANATE 30353663552 No Longer Active Elise Garcia APRN Active TERBINAFINE HCL 250 MG ORAL TABLET 1 qDay for nail fungus 7 TERBINAFINE HCL 39876357724 No Longer Active Carlton Hu MD A ctive AMOXICILLIN 500 MG ORAL CAPSULE 1 cap by mouth three times a day AMOXICILLIN 51105882418 No Longer Active Carlton Hu MD Active ELMIRON 100 MG ORAL CAPSULE 2 tablets in the am and 1 tablet at hs PENTOSAN POLYSULFATE SODIUM 19634443022 No Longer Active Robert jade Hu MD Active MUCINEX D 60-600 MG ORAL TABLET EXTENDED RELEASE 12 HOUR 1 t ab po q am PSEUDOEPHEDRINE-GUAIFENESIN 95880818238 No Longer Act nael Carlton Hu MD Active MUCINEX DM MAXIMUM STRENGTH 60-1200 MG ORAL TABLET EXT ENDED RELEASE 12 HOUR 1 tab po q am DEXTROMETHORPHAN-GUAIFENESIN 65832610818 No Longer Active Carlton Hu MD Active TUSSIONEX PENNKINETIC ER 10-8 MG/5ML ORAL SUSPENSION E XTENDED RELEASE 5ml po q12hr PRN Cough HYDROCOD POLST-CHLORPHEN POLST 5 9524019335 No Longer Active Carlton Hu MD Active POTASSIUM CHLORIDE ER 20 MEQ ORAL TABLET EXTENDED RELE ASE Take 1 by mouth 4 times daily for 7 days POTASSIUM CHLORIDE 89528238265 No Longer Active Carlton Hu MD Active ZITHROMAX 250 MG ORAL TABLET 2 po today, then 1 po q days 2-5 20 14/09/04 AZITHROMYCIN 13232156013 No Longer Active Elise Garcia APRN Active TUSSIONEX PENNKINETIC ER 10-8 MG/5ML ORAL SUSPENSION E XTENDED RELEASE 5 ml twice a day as needed for cough HYDROCOD POLST-CHLORPH EN POLST 86158956687 No Longer Active Elise Garcia APRN Active MONTELUKAST SODIUM 10 MG ORAL TABLET 1 po daily for Allergy MONTELUKAST SODIUM 72484271215 Active Carlton Hu MD Ac tive TUSSIONEX PENNKINETIC ER 10-8 MG/5ML ORAL SUSPENSION E XTENDED RELEASE 5ml po q12hr PRN Cough HYDROCOD POLST-CHLORPHEN POLST 5 2413397762 No Longer Active Hugo Restrepo MD Active LYRICA 100 MG ORAL CAPSULE Take 1 tab po BID for fibromyalgia 20 11/08/21 PREGABALIN 69801147048 No Longer Active Elise Garcia APRN A ctive PREDNISONE 20 MG ORAL TABLET 2 tabs daily for 3 days, 1 tab daily for 3 days, 1/2 tab daily for 2 days PREDNISONE 88282224919 No Longer Active Venullina Cesarl DOCUMENT REVIEW ATTORNEY Active TUSSIONEX PENNKINETIC ER 10-8 MG/5ML ORAL SUSPENSION E XTENDED RELEASE 5 mL PO q 12 hrs PRN cough HYDROCOD POLST-CHLORPHEN POLST 752968 84790 No Longer Active Jillina Frakerriel DOCUMENT REVIEW ATTORNEY Active FLUTICASONE PROPIONATE 50 MCG/ACT NASAL SUSPENSION 2 s prays each nostril daily until bottle is empty FLUTICASONE PROPIONATE 882688146 99 No Longer Active Jillina Frazell DOCUMENT REVIEW ATTORNEY Active ASMANEX 60 METERED DOSES 220 MCG/INH INHALATION AEROSO L POWDER BREATH ACTIVATED 1 puff bid with rinse after MOMETASONE FUROATE 9610108 4102 No Longer Active Jillina Cesarl DOCUMENT REVIEW ATTORNEY Active ZITHROMAX Z-REYNA 250 MG ORAL TABLET 2 today, then 1 daily for 4 d ays AZITHROMYCIN 93270971714 No Longer Active Elise Garcia DOCUMENT REVIEW ATTORNEY Active TUSSIONEX PENNKINETIC ER 10-8 MG/5ML ORAL SUSPENSION E XTENDED RELEASE 5ml po q12hr PRN Cough HYDROCOD POLST-CHLORPHEN POLST 5 6590638923 No Longer Active Elise Garcia DOCUMENT REVIEW ATTORNEY Active PREDNISONE 20 MG ORAL TABLET 2 tabs daily for 3 days, 1 tab daily for 3 days, 1/2 tab daily for 2 days PREDNISONE 07208931161 No Longer Active Jillina Cesarl DOCUMENT REVIEW ATTORNEY Active AMOXICILLIN 500 MG ORAL CAPSULE 2 po BID x 10 days 201 09/29/08 AMOXICILLIN 44878856371 No Longer Active Jillina Daphnezell DOCUMENT REVIEW ATTORNEY Act nael SINGULAIR 10 MG ORAL TABLET 1 po qday for allergies 20 14/01/12 MONTELUKAST SODIUM 98232845647 No Longer Active Carlton Hu MD Active LEVAQUIN 500 MG ORAL TABLET 1 tablet by mouth daily 13/09/24 LEVOFLOXACIN 74982068026 No Longer Active Carlton Hu MD Acti ve FLUTICASONE PROPIONATE 50 MCG/ACT NASAL SUSPENSION 2 s prays each nostril daily for 2 weeks, then 1 spray each nostril daily. FLUTICASONE PROPIONATE 66125045781 Active David Lopes APRN Active ZITHROMAX 250 MG ORAL TABLET 2 po today, then 1 po q days 2-5 13/08/10 AZITHROMYCIN 66004208111 No Longer Active Elise Garcia APRN Active CEFDINIR 300 MG ORAL CAPSULE 1 po BID x 10 days CEFDINIR 87840623646 No Longer Active Carlton Hu MD Active ZOCOR 40 MG ORAL TABLET 1 tab by mouth daily SI MVASTATIN 71175130790 No Longer Active Carlton Hu MD Active CYCLOBENZAPRINE HCL 10 MG ORAL TABLET 1 tablet by mouth BID prn had pain CYCLOBENZAPRINE HCL 59753978470 No Longer Active Jayden Hu MD Active LEVOFLOXACIN 500 MG ORAL TABLET 1 tab PO daily x 10 days LEVOFLOXACIN 73907701121 No Longer Active Carlton Hu MD Acti ve PREDNISONE 20 MG ORAL TABLET 3 tab PO qd x 2d, 2 tab P O qd x 2d, 1 tab PO qd x 2d, 1/2 tab PO qd x 2d PREDNISONE 06509349563 No Lo nger Active Carlton Hu MD Active FLUTICASONE PROPIONATE 50 MCG/ACT NASAL SUSPENSION 1 t o 2 sprays each nostril daily FLUTICASONE PROPIONATE 09112743083 No Longer Ac matthew HERNANDEZ Active CHERATUSSIN AC 100-10 MG/5ML ORAL SYRUP 1 tsp by mouth every 4 hours as needed for cough GUAIFENESIN-CODEINE 36217907804 No Longe r Active Blaine HERNANDEZ Active PROMETHAZINE-CODEINE 6.25-10 MG/5ML ORAL SYRUP 1 tsp b y mouth every 6 hours if needed for cough PROMETHAZINE-CODEINE 47585357983 No Longer Active Blaine HERNANDEZ Active CHERATUSSIN AC 100-10 MG/5ML ORAL SYRUP 1 tsp by mouth every 4 hours as needed for cough GUAIFENESIN-CODEINE 29419021683 No Longe r Active Blaine HERNANDEZ Active ZITHROMAX Z-REYNA 250 MG ORAL TABLET 2 today, then 1 daily for 4 d ays AZITHROMYCIN 27278976943 No Longer Active Columba Raida Act nael ZITHROMAX 250 MG ORAL TABLET 2 po today, then 1 po q days 2-5 20 14/03/21 AZITHROMYCIN 10520645923 No Longer Active Carlton Hu MD Active ZITHROMAX Z-REYNA 250 MG ORAL TABLET 2 today, then 1 daily for 4 d ays AZITHROMYCIN 55188223425 No Longer Active Columba Raida Act nael AUGMENTIN 875-125 MG ORAL TABLET 1 po BID x 10 days 13/01/20 AMOXICILLIN-POT CLAVULANATE 17526955225 No Longer Active Diya De Guzman APRN Active ZITHROMAX 250 MG ORAL TABLET 2 po today, then 1 po q days 2-5 20 12/08/14 AZITHROMYCIN 00144888933 No Longer Active Carlton Hu MD Active PREMARIN 0.625 MG ORAL TABLET TAKE 1 TAB BY MOUTH DAILY ESTROGENS CONJUGATED 28304652699 No Longer Active Ridge Bess DO A ctive CYMBALTA 30 MG ORAL CAPSULE DELAYED RELEASE PARTICLES 1 cap by mouth daily DULOXETINE HCL 82526834140 No Longer Active Ridge tam DO Active AMOXICILLIN 500 MG ORAL CAPSULE 1 tab by mouth 3 times daily x 10 days AMOXICILLIN 34593461714 No Longer Active Carlton bustamante MD Active AMOXICILLIN 500 MG ORAL CAPSULE 1 tab by mouth 3 times daily x 10 days AMOXICILLIN 21841338217 No Longer Active Carlton bustamante MD Active PROMETHAZINE-CODEINE 6.25-10 MG/5ML ORAL SYRUP 1 tsp b y mouth every 8 hours prn cough PROMETHAZINE-CODEINE 42979911116 No Longer Acti ve Carlton Hu MD Active MEDROL 4 MG ORAL TABLET THERAPY PACK 6 pills x 1 day, then 5 pills x 1 day then 4 pills x 1 day, then 3 pills x 1 day, then 2 pills x 1 day, then 1 pill x 1 day, then stop METHYLPREDNISOLONE 78548761533 No Long er Active Perez Mora MD Active AZITHROMYCIN 250 MG ORAL TABLET 2 po qd x 1 day, then 1 po q d x 4 days AZITHROMYCIN 71819004691 No Longer Active Perez Ambriz MD Active SYMBICORT 160-4.5 MCG/ACT INHALATION AEROSOL 2 puffs bid wit h rinse after BUDESONIDE-FORMOTEROL FUMARATE 62402029989 N o Longer Active Perez Mora MD Active LYRICA 75 MG ORAL CAPSULE TAKE 1 CAPSULE BY MOUTH TWICE DAILY PREGABALIN 30202124475 No Longer Active Carlton Hu MD Acti ve TOPAMAX 25 MG ORAL TABLET 1 qHS x 1 week, then 1 BID x 1 week, then 1 qAM and 2 qHS x 1 week, then 2 BID (migraine prevention) T OPIRAMATE 42570355592 No Longer Active Jerica FUENTES Active TOPAMAX 50 MG ORAL TABLET take 1 tab po BID for migraines. 07/02 TOPIRAMATE 42776303336 No Longer Active Jerica FUENTES Active TRIAMCINOLONE ACETONIDE 0.1 % EXTERNAL CREAM apply three roger es daily prn rash TRIAMCINOLONE ACETONIDE 11518546249 No Longer Active Carlton Hu MD Active CHERATUSSIN AC 100-10 MG/5ML ORAL SYRUP 5ml po q6hr PRN Cough 20 13/04/14 GUAIFENESIN-CODEINE 23989462759 No Longer Active Carlton Hu MD Active MEDROL 4 MG ORAL TABLET THERAPY PACK 6 tabs on day 1, 5 tabs on day 2, 4 tabs on day 3, 3 tabs on day 4, 2 tabs on day 5, 1 tab on day 6 2013 METHYLPREDNISOLONE 68184361394 No Longer Active Perez Mora MD Active AZITHROMYCIN 250 MG ORAL TABLET 2 po qd x 1 day, then 1 po q d x 4 days AZITHROMYCIN 59201198692 No Longer Active Perez Ambriz MD Active PROPRANOLOL HCL 60 MG ORAL TABLET 1 PO Q D PROPRANOLOL HCL 35516721071 No Longer Active Perez Mora MD Activ e CHERATUSSIN AC 100-10 MG/5ML ORAL SYRUP take one tsp po Q 6h ours prn cough GUAIFENESIN-CODEINE 28980340992 No Longer Active Zia Mora MD Active AUGMENTIN 875-125 MG ORAL TABLET 1 tab by mouth twice daily with food AMOXICILLIN-POT CLAVULANATE 07966135987 No Longer Act nael Perez Mora MD Active CHERATUSSIN AC 100-10 MG/5ML ORAL SYRUP 1 tsp by mouth every 4 hours as needed for cough GUAIFENESIN-CODEINE 23108332826 No Longe r Active Hugo Restrepo MD Active ACETAMINOPHEN-CODEINE #3 300-30 MG ORAL TABLET 1 PO Q 4-6 HRS MT N PAIN ACETAMINOPHEN-CODEINE 20364179974 No Longer Active Hugo Restrepo MD Active LEVAQUIN 500 MG ORAL TABLET take one po QD LEVO FLOXACIN 63944873566 No Longer Active Griffin HERNANDEZ Active PREDNISONE 20 MG ORAL TABLET Take 3 tabs daily for 3 d ays, 2 tabs daily for 3 days, 1 tab daily for 3 days, 1/2 tab daily for 3 days 11/07 PREDNISONE 54155769729 No Longer Active Carlton Hu MD Acti ve AVELOX 400 MG ORAL TABLET 1 tab by mouth daily MOXIFLOXACIN HCL 45432324007 No Longer Active Carlton Hu MD Active CHERATUSSIN AC 100-10 MG/5ML ORAL SYRUP 1 tsp by mouth every 4 hours as needed for cough GUAIFENESIN-CODEINE 38922229024 No Longe r Active Hugo Restrepo MD Active AVELOX 400 MG ORAL TABLET 1 tab by mouth daily MOXIFLOXACIN HCL 39999576840 No Longer Active Marcy De La Rosa MD PhD Active TERBINAFINE HCL 250 MG ORAL TABLET 1 qDay T ERBINAFINE HCL 10928074898 No Longer Active Marcy De La Rosa MD PhD Active CHERATUSSIN AC 100-10 MG/5ML ORAL SYRUP 1 tsp by mouth every 4 hours as needed for cough GUAIFENESIN-CODEINE 45664920687 No Longe r Active Marcy De La Rosa MD PhD Active AVELOX 400 MG ORAL TABLET 1 tab by mouth daily MOXIFLOXACIN HCL 78616295771 No Longer Active Marcy De La Rosa MD PhD Active HYDROCODONE-ACETAMINOPHEN 5-325 MG ORAL TABLET 1 po q 6hr PRN co ugh HYDROCODONE-ACETAMINOPHEN 64771961588 No Longer Active Marcy De La Rosa MD PhD Active PREDNISONE 20 MG ORAL TABLET 2 tabs daily for 3 days, 1 tab daily for 3 days, 1/2 tab daily for 2 days PREDNISONE 74462236004 No Longer Active Carlton Hu MD Active CEFDINIR 300 MG ORAL CAPSULE by mouth twice a day 2011 CEFDINIR 14897729770 No Longer Active Carlton Hu MD Acti ve ACETAMINOPHEN-CODEINE #3 300-30 MG ORAL TABLET 1 tablet po q 4-6 hrs prn pain ACETAMINOPHEN-CODEINE 33952014279 No Longer Active Ridge Bess DO Active ZITHROMAX 250 MG ORAL TABLET 2 po today, then 1 po q days 2-5 20 03/07/07 AZITHROMYCIN 93535520624 No Longer Active Carlton Hu MD Active CHERATUSSIN AC 100-10 MG/5ML ORAL SYRUP take 1 tsp po q4-6 h ours prn cough GUAIFENESIN-CODEINE 42708028138 No Longer Active Jayden Hu MD Active ACETAMINOPHEN-CODEINE #3 300-30 MG ORAL TABLET 1 PO Q 4-6 HR PRN PAIN ACETAMINOPHEN-CODEINE 92756588413 No Longer Active Arnol Hu MD Active LORTAB 7.5-500 MG/15ML ORAL ELIXIR 7.5 ml po q 4 hour prn cough HYDROCODONE-ACETAMINOPHEN 93811915580 No Longer Active Carlton Hu MD Active PREDNISONE 20 MG ORAL TABLET 1 po bid 3 days, then 1 po q day 3 days PREDNISONE 91367403757 No Longer Active Carlton Hu MD Active CEFDINIR 300 MG ORAL CAPSULE by mouth twice a day 2011 CEFDINIR 33547025422 No Longer Active Carlton Hu MD Acti ve CEFDINIR 300 MG ORAL CAPSULE by mouth twice a day 2010 CEFDINIR 93911119439 No Longer Active Carlton Hu MD Acti ve CEFDINIR 300 MG ORAL CAPSULE by mouth twice a day 2010 CEFDINIR 38353590237 No Longer Active Carlton Hu MD Acti ve TESSALON PERLES 100 MG ORAL CAPSULE 1 tablet by mouth 3 times daily as needed for cough BENZONATATE 31775726287 No Longer Active Carlton Hu MD Active CEFDINIR 300 MG ORAL CAPSULE by mouth twice a day 2010 CEFDINIR 28250175782 No Longer Active Carlton Hu MD Acti ve ZITHROMAX Z-REYNA 250 MG ORAL TABLET 2 today, then 1 daily for 4 d ays AZITHROMYCIN 67444597328 No Longer Active Hugo Restrepo MD Active TESSALON PERLES 100 MG ORAL CAPSULE 1 tablet by mouth 3 times daily as needed for cough TESSALON PERLES 100 MG ORAL CAPSULE 00864 7 BENZONATATE Inactive PREDNISONE 20 MG ORAL TABLET 1 po bid 3 days, then 1 po q day 3 days PREDNISONE 20 MG ORAL TABLET 041801 PREDNISONE Ortley ctive LORTAB 7.5-500 MG/15ML ORAL ELIXIR 7.5 ml po q 4 hour prn cough LORTAB 7.5-500 MG/15ML ORAL ELIXIR HYDROCODONE-A CETAMINOPHEN Inactive ACETAMINOPHEN-CODEINE #3 300-30 MG ORAL TABLET 1 PO Q 4-6 HR PRN PAIN ACETAMINOPHEN-CODEINE #3 300-30 MG ORAL TABLET 9 39016 ACETAMINOPHEN-CODEINE Inactive CHERATUSSIN AC 100-10 MG/5ML ORAL SYRUP take 1 tsp po q4-6 h ours prn cough CHERATUSSIN AC 100-10 MG/5ML ORAL SYRUP 119131 GUAIFENESIN-CODEINE Inactive ACETAMINOPHEN-CODEINE #3 300-30 MG ORAL TABLET 1 tablet po q 4-6 hrs prn pain ACETAMINOPHEN-CODEINE #3 300-30 MG ORAL TABLET 493685 ACETAMINOPHEN-CODEINE Inactive HYDROCODONE-ACETAMINOPHEN 5-325 MG ORAL TABLET 1 po q 6hr PRN co ugh HYDROCODONE-ACETAMINOPHEN 5-325 MG ORAL TABLET 118797 HYDROCODONE-ACETAMINOPHEN Inactive AVELOX 400 MG ORAL TABLET 1 tab by mouth daily AVELOX 400 MG ORAL TABLET MOXIFLOXACIN HCL Inactive CHERATUSSIN AC 100-10 MG/5ML ORAL SYRUP 1 tsp by mouth every 4 hours as needed for cough CHERATUSSIN AC 100-10 MG/5ML ORAL SYRUP 9 75800 GUAIFENESIN-CODEINE Inactive TERBINAFINE HCL 250 MG ORAL TABLET 1 qDay 07/08 TERBINAFINE HCL 250 MG ORAL TABLET 885863 TERBINAFINE HCL Inactive CHERATUSSIN AC 100-10 MG/5ML ORAL SYRUP 1 tsp by mouth every 4 hours as needed for cough CHERATUSSIN AC 100-10 MG/5ML ORAL SYRUP 9 19319 GUAIFENESIN-CODEINE Inactive ACETAMINOPHEN-CODEINE #3 300-30 MG ORAL TABLET 1 PO Q 4-6 HRS MT N PAIN ACETAMINOPHEN-CODEINE #3 300-30 MG ORAL TABLET 935722 ACETAMINOPHEN-CODEINE Inactive CHERATUSSIN AC 100-10 MG/5ML ORAL SYRUP 1 tsp by mouth every 4 hours as needed for cough CHERATUSSIN AC 100-10 MG/5ML ORAL SYRUP 9 04313 GUAIFENESIN-CODEINE Inactive AUGMENTIN 875-125 MG ORAL TABLET 1 tab by mouth twice daily with food AUGMENTIN 875-125 MG ORAL TABLET AMOXICIL MADELINE-POT CLAVULANATE Inactive CHERATUSSIN AC 100-10 MG/5ML ORAL SYRUP take one tsp po Q 6h ours prn cough CHERATUSSIN AC 100-10 MG/5ML ORAL SYRUP 142431 GUAIFENESIN-CODEINE Inactive PROPRANOLOL HCL 60 MG ORAL TABLET 1 PO Q D PROPRANOLOL HCL 60 MG ORAL TABLET 085275 PROPRANOLOL HCL Inactive TOPAMAX 50 MG ORAL TABLET take 1 tab po BID for migraines. 07/02 TOPAMAX 50 MG ORAL TABLET 230434 TOPIRAMATE Inacti ve TOPAMAX 25 MG ORAL TABLET 1 qHS x 1 week, then 1 BID x 1 week, then 1 qAM and 2 qHS x 1 week, then 2 BID (migraine prevention) TOPAMAX 25 MG ORAL TABLET 130433 TOPIRAMATE Inactive LYRICA 75 MG ORAL CAPSULE TAKE 1 CAPSULE BY MOUTH TWICE DAILY LYRICA 75 MG ORAL CAPSULE 550954 PREGABALIN Inactive SYMBICORT 160-4.5 MCG/ACT INHALATION AEROSOL 2 puffs bid wit h rinse after SYMBICORT 160-4.5 MCG/ACT INHALATION AEROSOL 124 9734 BUDESONIDE-FORMOTEROL FUMARATE Inactive PROMETHAZINE-CODEINE 6.25-10 MG/5ML ORAL SYRUP 1 tsp b y mouth every 8 hours prn cough PROMETHAZINE-CODEINE 6.25-10 MG/ 5ML ORAL SYRUP 391292 PROMETHAZINE-CODEINE Inactive CYMBALTA 30 MG ORAL CAPSULE DELAYED RELEASE PARTICLES 1 cap by mouth daily CYMBALTA 30 MG ORAL CAPSULE DELAYED RELE ASE PARTICLES 352719 DULOXETINE HCL Inactive PREMARIN 0.625 MG ORAL TABLET TAKE 1 TAB BY MOUTH DAILY PREMARIN 0.625 MG ORAL TABLET ESTROGENS CONJUGATED Inactive CHERATUSSIN AC 100-10 MG/5ML ORAL SYRUP 1 tsp by mouth every 4 hours as needed for cough CHERATUSSIN AC 100-10 MG/5ML ORAL SYRUP 9 23677 GUAIFENESIN-CODEINE Inactive PROMETHAZINE-CODEINE 6.25-10 MG/5ML ORAL SYRUP 1 tsp b y mouth every 6 hours if needed for cough PROMETHAZINE-CODEINE 6.25-10 MG/5ML ORAL SYRUP 327071 PROMETHAZINE-CODEINE Inactive CHERATUSSIN AC 100-10 MG/5ML ORAL SYRUP 1 tsp by mouth every 4 hours as needed for cough CHERATUSSIN AC 100-10 MG/5ML ORAL SYRUP 9 [id number] GUAIFENESIN-CODEINE Inactive FLUTICASONE PROPIONATE 50 MCG/ACT NASAL SUSPENSION 1 t o 2 sprays each nostril daily FLUTICASONE PROPIONATE 50 MCG/AC T NASAL SUSPENSION [id number] FLUTICASONE PROPIONATE Inactive PREDNISONE 20 MG ORAL TABLET 3 tab PO qd x 2d, 2 tab P O qd x 2d, 1 tab PO qd x 2d, 1/2 tab PO qd x 2d PREDNISONE 20 MG ORAL TAB LET [id number] PREDNISONE Inactive LEVOFLOXACIN 500 MG ORAL TABLET 1 tab PO daily x 10 days LEVOFLOXACIN 500 MG ORAL TABLET 194421 LEVOFLOXACIN Inactive CYCLOBENZAPRINE HCL 10 MG ORAL TABLET 1 tablet by mouth BID prn had pain CYCLOBENZAPRINE HCL 10 MG ORAL TABLET 008194 CYCLOBENZAPRINE HCL Inactive ZOCOR 40 MG ORAL TABLET 1 tab by mouth daily 4 ZOCOR 40 MG ORAL TABLET 289802 SIMVASTATIN Inactive TUSSIONEX PENNKINETIC ER 10-8 MG/5ML [...] FLUTICASONE PROPIO EFE 50 MCG/ACT NASAL SUSPENSION 2535505 FLUTICASONE PROPIONATE Inactive TUSSIONEX PENNKINETIC ER 10-8 MG/5ML ORAL SUSPENSION E XTENDED RELEASE 5 mL PO q 12 hrs PRN cough TUSSIONEX PENNKINETI C ER 10-8 MG/5ML ORAL SUSPENSION EXTENDED RELEASE HYDROCOD POLST-CHLORPHEN POLST I nactive LYRICA 100 MG ORAL CAPSULE Take 1 tab po BID for fibromyalgia 20 11/08/21 LYRICA 100 MG ORAL CAPSULE 430883 PREGABALIN Inact nael TUSSIONEX PENNKINETIC ER 10-8 [...] three days PREDNISONE 20 MG ORAL TABLET 276782 PREDNIS ONE Inactive PROAIR HFA 108 (90 BASE) MCG/ACT INHALATION AEROSOL SO LUTION 2 puffs four times a day as needed PROAIR HFA 108 (90 B ASE) MCG/ACT INHALATION AEROSOL SOLUTION ALBUTEROL SULFATE Inactive PREDNISONE 20 MG ORAL TABLET two tabs by mouth today, then one tab by mouth days two and three and four PREDNISONE 20 MG ORAL TAB LET 009604 PREDNISONE Inactive TUSSIONEX PENNKINETIC ER 10-8 MG/5ML [...] bid 04/20 TOPAMAX 100 MG ORAL TABLET 744909 TOPIRAMATE Inactive CYMBALTA 30 MG ORAL CAPSULE DELAYED RELEASE PARTICLES 1 cap by mouth daily for depression CYMBALTA 30 MG ORAL CAPSULE DELAYED RELEASE PARTICLES 840647 DULOXETINE HCL Inactive TYLENOL WITH CODEINE #3 300-30 MG ORAL TABLET 1-2 po q6hr PRN Pa in TYLENOL WITH CODEINE #3 300-30 MG ORAL TABLET 692849 ACETAMINOPHEN-CODEINE Inactive TYLENOL WITH CODEINE #3 300-30 MG ORAL TABLET TYLENOL WITH CODEINE #3 300-30 MG ORAL TABLET 214848 ACETAMINOPHEN-CODEINE Inactive TRIAMCINOLONE ACETONIDE 0.1 % EXTERNAL CREAM apply bid spari ngly to rash TRIAMCINOLONE ACETONIDE 0.1 % EXTERNAL CREAM 101 4314 TRIAMCINOLONE ACETONIDE Inactive GUAIFENESIN-CODEINE 100-10 MG/5ML ORAL SYRUP 1 tsp PO q6h PRN co ugh GUAIFENESIN-CODEINE 100-10 MG/5ML ORAL SYRUP 619484 GUAIFENESIN-CODEINE Inactive ATORVASTATIN CALCIUM 10 MG ORAL TABLET 1 pill by mouth night ly, for cholesterol ATORVASTATIN CALCIUM 10 MG ORAL TABLET 107112 ATORVASTATIN CALCIUM Inactive PAXIL 40 MG ORAL TABLET take 1 tab po qday for depression 0 PAXIL 40 MG ORAL TABLET 1065482 PAROXETINE HCL Inactive ZITHROMAX Z-REYNA 250 MG ORAL TABLET 2 today, then 1 daily for 4 d ays ZITHROMAX Z-REYNA 250 MG ORAL TABLET 038994 AZITHROMYCIN Inactive CEFDINIR 300 MG ORAL CAPSULE [...] 2-08 1703/07/07 ZITHROMAX 250 MG ORAL TABLET 930265 AZITHROMYCIN Ortley ctive CEFDINIR 300 MG ORAL CAPSULE by mouth twice a day 2011 CEFDINIR 300 MG ORAL CAPSULE 20020704 CEFDINIR Inactive PREDNISONE 20 MG ORAL TABLET 2 tabs daily for 3 days, 1 tab daily for 3 days, 1/2 tab daily for 2 days PREDNISONE 20 MG ORAL T ABLET 252780 PREDNISONE Inactive AVELOX 400 MG ORAL TABLET [...] days 11/07 PREDNISONE 20 MG ORAL TABLET 780657 PREDNISONE Inactive LEVAQUIN 500 MG ORAL TABLET take one po QD LEVAQUIN 500 MG ORAL TABLET 413393 LEVOFLOXACIN Inactive AZITHROMYCIN 250 MG ORAL TABLET 2 po qd x 1 day, then 1 po q d x 4 days AZITHROMYCIN 250 MG ORAL TABLET 070582 AZITHROMY GIOVANNI Inactive MEDROL 4 MG ORAL TABLET THERAPY PACK 6 tabs on day 1, 5 tabs on day 2, 4 tabs on day 3, 3 tabs on day 4, 2 tabs on day 5, 1 tab on day 6 2013 MEDROL 4 MG ORAL TABLET THERAPY PACK 698106 METHYLPREDNISOLONE Greer ctive CHERATUSSIN AC 100-10 MG/5ML ORAL SYRUP 5ml po q6hr PRN Cough 20 13/04/14 CHERATUSSIN AC 100-10 MG/5ML ORAL SYRUP 307359 GUAIFENE SIN-CODEINE Inactive TRIAMCINOLONE ACETONIDE 0.1 % EXTERNAL CREAM apply three roger es daily prn rash TRIAMCINOLONE ACETONIDE 0.1 % EXTERNAL CREAM 101 4314 TRIAMCINOLONE ACETONIDE Inactive AZITHROMYCIN 250 MG ORAL TABLET 2 po qd x 1 day, then 1 po q d x 4 days AZITHROMYCIN 250 MG ORAL TABLET 160874 AZITHROMY GIOVANNI Inactive MEDROL 4 MG ORAL TABLET THERAPY PACK 6 pills x 1 day, then 5 pills x 1 day then 4 pills x 1 day, then 3 pills x 1 day, then 2 pills x 1 day, then 1 pill x 1 day, then stop MEDROL 4 MG ORAL TABLET THERAPY PACK 351121 METHYLPREDNISOLONE Inactive AMOXICILLIN 500 MG ORAL CAPSULE 1 tab by mouth 3 times daily x 10 days AMOXICILLIN 500 MG ORAL CAPSULE 924142 AMOXICILL IN Inactive AMOXICILLIN 500 MG ORAL CAPSULE 1 tab by mouth 3 times daily x 10 days AMOXICILLIN 500 MG ORAL CAPSULE 581520 AMOXICILL IN Inactive ZITHROMAX 250 MG ORAL TABLET 2 po today, then 1 po q days 2-5 20 12/08/14 ZITHROMAX 250 MG ORAL TABLET 718086 AZITHROMYCIN Ortley ctive AUGMENTIN 875-125 MG ORAL TABLET 1 po BID x 10 days 20 13/01/20 AUGMENTIN 875-125 MG ORAL TABLET AMOXICILLIN-POT CLAVULANATE Inactive ZITHROMAX Z-REYNA 250 MG ORAL TABLET 2 today, then 1 daily for 4 d ays ZITHROMAX Z-REYNA 250 MG ORAL TABLET 727262 AZITHROMYCIN Inactive ZITHROMAX 250 MG ORAL TABLET 2 po today, then 1 po q days 2-5 20 14/03/21 ZITHROMAX 250 MG ORAL TABLET 178813 AZITHROMYCIN Greer ctive ZITHROMAX Z-REYNA 250 MG ORAL TABLET 2 today, then 1 daily for 4 d ays ZITHROMAX Z-REYNA 250 MG ORAL TABLET 357795 AZITHROMYCIN Inactive CEFDINIR 300 MG ORAL CAPSULE 1 po BID x 10 days 06/21 CEFDINIR 300 MG ORAL CAPSULE 587547 CEFDINIR Inactive ZITHROMAX 250 MG ORAL TABLET 2 po today, then 1 po q days 2-5 20 13/08/10 ZITHROMAX 250 MG ORAL TABLET 758124 AZITHROMYCIN Greer ctive LEVAQUIN 500 MG ORAL TABLET 1 tablet by mouth daily 13/09/24 LEVAQUIN 500 MG ORAL TABLET 042121 LEVOFLOXACIN Inactive SINGULAIR 10 MG ORAL TABLET 1 po qday for allergies 14/01/12 SINGULAIR 10 MG ORAL TABLET 784761 MONTELUKAST SODIUM Inactive AMOXICILLIN 500 MG ORAL CAPSULE 2 po BID x 10 days 201 09/29/08 AMOXICILLIN 500 MG ORAL CAPSULE 754581 AMOXICILLIN Inactive PREDNISONE 20 MG ORAL TABLET 2 tabs daily for 3 days, 1 tab daily for 3 days, 1/2 tab daily for 2 days PREDNISONE 20 MG ORAL T ABLET 383589 PREDNISONE Inactive ZITHROMAX Z-REYNA 250 MG ORAL TABLET 2 today, then 1 daily for 4 d ays ZITHROMAX Z-REYNA 250 MG ORAL TABLET 930240 AZITHROMYCIN Inactive PREDNISONE 20 MG ORAL TABLET 2 tabs daily for 3 days, 1 tab daily for 3 days, 1/2 tab daily for 2 days PREDNISONE 20 MG ORAL T ABLET 377087 PREDNISONE Inactive ZITHROMAX 250 MG ORAL TABLET 2 po today, then 1 po q days 2-5 20 14/09/04 ZITHROMAX 250 MG ORAL TABLET 580620 AZITHROMYCIN Greer ctive AMOXICILLIN 500 MG ORAL CAPSULE 1 cap by mouth three times a day AMOXICILLIN 500 MG ORAL CAPSULE 830454 AMOXICILLIN Inactive TERBINAFINE HCL 250 MG ORAL TABLET 1 qDay for nail fungus 7 TERBINAFINE HCL 250 MG ORAL TABLET 862254 TERBINAFINE HCL Inact nael AUGMENTIN 875-125 MG ORAL TABLET 1 po BID x 10 days 16/03/22 AUGMENTIN 875-125 MG ORAL TABLET AMOXICILLIN-POT CLAVULANATE Inactive PREDNISONE 20 MG ORAL TABLET 2 po qd x 5 days PREDNISONE 20 MG ORAL TABLET 461328 PREDNISONE Inactive AZITHROMYCIN 250 MG ORAL TABLET 2 po qd x 1 day, then 1 po q d x 4 days AZITHROMYCIN 250 MG ORAL TABLET 879203 AZITHROMY GIOVANNI Inactive PREDNISONE 50 MG ORAL TABLET Take 50 mg dialy for 6 day s 7 PREDNISONE 50 MG ORAL TABLET 771378 PREDNISONE Inactive AUGMENTIN 875-125 MG ORAL TABLET 1 po BID x 10 days 18/04/16 AUGMENTIN 875-125 MG ORAL TABLET AMOXICILLIN-POT CLAVULANATE Inactive DOXYCYCLINE HYCLATE 100 MG ORAL CAPSULE 1 cap by mouth twice latasha ly DOXYCYCLINE HYCLATE 100 MG ORAL CAPSULE 4705548 DOXYCYCL INE HYCLATE Inactive PREDNISONE 20 MG ORAL TABLET Take 2 tabs day 1 and 2 and 1 t ab days 3 and 4 PREDNISONE 20 MG ORAL TABLET 225696 PREDNISONE Inactive AMOXICILLIN 500 MG ORAL CAPSULE 1 cap by mouth twice daily 10/21 AMOXICILLIN 500 MG ORAL CAPSULE 077411 AMOXICILLIN Inactive TRIAMCINOLONE ACETONIDE 0.1 % EXTERNAL OINTMENT Apply to affected areas TID PRN Rash/Itching for up 2 weeks TRIAMCINOLON E ACETONIDE 0.1 % EXTERNAL OINTMENT 1229448 TRIAMCINOLONE ACETONIDE Inactive ACYCLOVIR 800 MG ORAL TABLET 1 po 5 times daily x 7 days ACYCLOVIR 800 MG ORAL TABLET 295981 ACYCLOVIR Inactive AMOXICILLIN-POT CLAVULANATE 875-125 MG ORAL TABLET 1 pill by mouth twice daily AMOXICILLIN-POT CLAVULANATE 875-125 MG ORAL TABL ET 152669 AMOXICILLIN-POT CLAVULANATE Inactive AMOXICILLIN-POT CLAVULANATE 875-125 MG ORAL TABLET 1 pill by mouth twice daily AMOXICILLIN-POT CLAVULANATE 875-125 MG ORAL TABL ET 468654 AMOXICILLIN-POT CLAVULANATE Inactive Vital Signs Date Name [...] Panel - Chemistry sodium, serum 137 mmol/L 159-941 0413/10/08 carbon dioxide, venous blood 29.9 mmol/L 21.0-32 [...] 0.50 mg/dL 0.00-1.00 cholesterol, serum 324 mg/dL 557-000 5764/10/08 triglyceride, serum, fasting 130 mg/dL 30-200 HDL [...] 50-136 Encounters Code Encounter Date Provider Facility CPT-[id number] Vst-Est Level III 11:01:08 CDT Ra joe Lopes APRN [facility] CPT-28401 Level 3 Est. Patient 14:41:20 DEPUTY CONTROLLER David Tin dle [facility] CPT-90923 [id number] Vst-Est Level IV 09:06:31 C ESAU Hu MD [facility] CPT-23816 Level 3 Est. Patient 14:16:41 CDT David Tin dle [facility] CPT-02436 Level 3 Est. Patient 13:57:55 CDT David Tin dle [facility] CPT-86531 Level 3 Est. Patient 16:08:07 CDT David Tin dle [facility] CPT-22481 Level 3 Est. Patient 16:53:54 CDT May haas MD [facility] CPT-84977 [id number] Vst-Est Level IV 08:41:[address] Carlton Hu MD [facility] CPT-13628 Level 3 Est. Patient 09:46:49 DEPUTY CONTROLLER David Tin dle [facility] CPT-33644 [id number] Vst-Est Level III 11:12:16 CDT Yanet Bess DO [facility] CPT-44544 Level 3 Est. Patient 11:34:49 DEPUTY CONTROLLER Perez Mora MD [facility] CPT-45995 Level 4 Est. Patient 09:51:32 DEPUTY CONTROLLER Carlton rich MD [facility] CPT-48992 Level 3 Est. Patient 10:26:00 DEPUTY CONTROLLER Elise stephenson [facility] CPT-52716 Level 3 Est. Patient 13:35:41 DEPUTY CONTROLLER Carlton rich MD [facility] CPT-30170 Level 3 Est. Patient 10:03:52 DEPUTY CONTROLLER Carlton rich MD [facility] CPT-61843 Level 3 Est. Patient 12:17:50 CDT Hugo Restrepo MD [facility] CPT-14672 Level 3 Est. Patient 13:42:38 CDT Elise Are ll [facility] CPT-83809 Level 3 Est. Patient 13:23:51 CDT Diya cobian [facility] CPT-27601 Level 3 Est. Patient 14:22:19 DEPUTY CONTROLLER Astridgreer Mariana cobian [facility] CPT-88020 Level 3 Est. Patient 10:11:46 CDT Carlton rich MD [facility] CPT-56042 Level 3 Est. Patient 17:29:43 CDT Elise Are [facility] CPT-76510 Level 3 Est. Patient 11:58:06 CDT Elise Are [facility] CPT-04263 Level 4 Est. Patient 14:36:51 CDT Carlton rich MD [facility] CPT-91866 Level 3 Est. Patient 18:16:00 DEPUTY CONTROLLER Blaine HERNANDEZ [facility] CPT-87648 Level 3 Est. Patient 09:45:49 DEPUTY CONTROLLER Carlton rich MD [facility] CPT-79951 Level 3 Est. Patient 13:19:20 CDT Carlton rich MD [facility] CPT-94160 Level 3 Est. Patient 13:06:43 CDT Ridge tam DO [facility] CPT-88268 Level 3 Est. Patient 10:03:07 CDT Perez Mora MD [facility] CPT-30252 Level 3 Est. Patient 19:50:35 DEPUTY CONTROLLER Carlton rich MD [facility] CPT-70175 Level 4 Est. Patient 18:05:01 DEPUTY CONTROLLER Carlton rich MD [facility] CPT-19683 Level 3 Est. Patient 10:45:55 DEPUTY CONTROLLER Hugo Restrepo MD [facility] CPT-15699 Level 3 Est. Patient 14:12:49 CDT Griffin HERNANDEZ [facility] CPT-35542 Level 3 Est. Patient 17:37:24 CDT Carlton rich MD [facility] CPT-00702 Level 3 Est. Patient 16:51:54 CDT Carlton rich MD [facility] CPT-43346 Level 3 Est. Patient 12:18:11 CDT Hugo Restrepo MD [facility] CPT-98096 Level 3 Est. Patient 11:30:25 CDT Marcy crisostomo MD PhD [facility] CPT-91912 Level 3 Est. Patient 12:00:47 DEPUTY CONTROLLER Carlton rich MD [facility] CPT-42307 Level 3 Est. Patient 16:31:06 DEPUTY CONTROLLER Carlton rich MD [facility] CPT-33936 Level 3 Est. Patient 16:23:24 DEPUTY CONTROLLER Ridge tam DO [facility] CPT-64259 Level 3 Est. Patient 12:34:12 CDT Carlton rich MD [facility] CPT-91843 Level 2 Est. Patient 15:43:33 CDT Robi armstrong MD [facility] CPT-34133 Level 4 Est. Patient 14:04:44 CDT Carlton rich MD [facility] CPT-82802 Level 3 Est. Patient 05:47:59 CDT Ridge tam [facility] CPT-85278 Level 3 Est. Patient 13:12:53 DEPUTY CONTROLLER Carlton rich MD [facility] CPT-16173 Level 3 Est. Patient 14:26:53 CDT Hugo Restrepo MD [facility] Procedures Code Procedure Name Date Entry Date Standard Desc ription [id number] ([id number] [id number]) Patient Reason Influenza immu nization not administered 14:13:39 DEPUTY CONTROLLER CPT-03385 Venipuncture Draw Fee 15:53:34 CDT CPT-000 Give Appropriate Flu Vaccine 14:14:31 CDT 2 CPT-J1040 Depo Medrol 80 mg (Methyl Prednisolone A cetate) 10:42:44 CDT CPT-J1100 Decadron 8mg (Dexamethasone) 10:42:44 CDT 2 CPT-J0696 Rocephin 1gm Inj Solr 14:32:13 CDT CPT-J1020 Depo Medrol 60 mg (Methyl Prednisolone A cetate) 14:32:13 CDT CPT-J1100 Decadron 6mg (Dexamethasone) 14:32:13 CDT 2 CPT-79872 Hip bilat min 2V w AP pelvis 13:16:20 CDT 2 CPT-16462 Pelvis only 13:07:33 CDT CPT-70448 Spec Collection and Handling Fee 11:25:12 C DT CPT-07502 Fluzone Quadrivalent Intramuscular Suspe nsion 0.5 ML 14:31:55 CDT CPT-38392 Abx/Therapy Injection 13:28:47 DEPUTY CONTROLLER CPT-J2930 Solu Medrol 125 mg (Methyl Prednisolone Sodium Succinate) 12:00:47 DEPUTY CONTROLLER CPT-74595 Venipuncture Draw Fee 11:33:31 CDT CPT-99687 EKG Trac and Interp 11:21:09 CDT CPT-49903 Chest 2V Frontal and Lat 11:21:09 CDT 12/15 CPT-94936 Venipuncture Draw Fee 08:02:34 CDT CPT-09536 Chest 2V Frontal and Lat 05:47:59 CDT 06/05
--- OUTSIDE RECORDS SUMMARY | 2019-10-08 08:44 | XMS REPORT | Clinical Summary ---
Author Author Caitlin, Juliana Martinez Organization [facility] [facility] [facility] Address Unknown Phone Unavailable Allergies, Adverse Reactions, [...] 35.0-35.9, adult BMI 35-35.9 Refinement 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 WOOL FLEECE SORTER Body Mass Index 35.0-35.9, adult BMI 33-33.9 Refinement 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 WO[employer] SORTER Body Mass Index 35.0-35.9, adult BMI 34-34.9 Active 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 WO[employer] SORTER Body Mass Index 35.0-35.9, adult Upper respiratory [...] throat 462 Active 201 12/06/23 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 [employer]OL [employer] SORTER Acute pharyngitis Shingles 053.9 Active 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 [employer]TER Herpes zoster without mention of complication Allergic [...] dominguez MD URI - acute ICD-465.9 Inactive Huog Restrepo MD Pharyngitis acute ICD-462 Inactive Hugo [...] pill by mouth twice daily AMOXICILLIN-POT CLAVULANATE 39408221997 Active 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 WOOL [employer]LEECE SORTER Active PAXIL 40 MG ORAL TABLET take 1 tab po qday for depression 0 PAROXETINE HCL 71910347072 No Longer Active 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 WOOL FLEECE SORTER Acti ve ATORVASTATIN CALCIUM 10 MG ORAL TABLET 1 pill by mouth night ly, for cholesterol ATORVASTATIN CALCIUM 00866841333 No Longer Active Ran dy Marianne WOOL FLEECE SORTER Active GUAIFENESIN-CODEINE 100-10 MG/5ML ORAL SYRUP 1 tsp PO q6h PRN co ugh GUAIFENESIN-CODEINE 24166876353 No Longer Active 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 WOOL FLEECE SORTER Active TOPIRAMATE 100 MG ORAL TABLET Take 1 tablet by mouth twice daily 19/04/21 TOPIRAMATE 68676550517 Active Carlton Hu MD Active PAROXETINE HCL 40 MG TABS TAKE 1 TABLET BY MOUTH ONCE DAILY FOR DEPRESSION PAROXETINE HCL 90312908576 Active Carlton Hu MD Active HYDROCHLOROTHIAZIDE 25 MG ORAL TABLET Take 1 tablet by mouth once daily HYDROCHLOROTHIAZIDE 84617312897 Active Carlton Hu MD Active AMOXICILLIN-POT CLAVULANATE 875-125 MG ORAL TABLET 1 pill by mouth twice daily AMOXICILLIN-POT CLAVULANATE 18570857866 No Longer Act nael Lopes APRN Active DULOXETINE HCL 60 MG ORAL CAPSULE DELAYED RELEASE PART ICLES TAKE 1 CAPSULE BY MOUTH ONCE DAILY FOR PAIN AND MOOD DULOXETINE HCL 002 93175162 Active Carlton Hu MD Active TRAMADOL HCL 50 MG TABS TAKE 1 TABLET BY MOUTH THREE TIMES DAILY WITH EXTRA STRENGTH TYLENOL TRAMADOL HCL 24626129354 Active Carlton Hu MD Active ALPRAZOLAM 0.5 MG TABS TAKE 1 TABLET BY MOUTH ONCE DAILY NEEDED ALPRAZOLAM 50074968002 Active Carlton Hu MD Active GABAPENTIN 100 MG ORAL CAPSULE TAKE 1 CAPSULE BY MOUTH TWICE DAILY FOR FIBROMYALGIA GABAPENTIN 82182239656 Active Carlton Hu MD Active ELMIRON 100MG CAP TAKE 2 CAPSULES BY MOUTH IN THE MORNING AND 1 CAPSULE AT BEDTIME PENTOSAN POLYSULFATE SODIUM 75915258259 Active May Vivar MD Active TRIAMCINOLONE ACETONIDE 0.1 % EXTERNAL CREAM apply bid spari ngly to rash TRIAMCINOLONE ACETONIDE 10892941399 No Longer Active Carlton Hu MD Active TYLENOL WITH CODEINE #3 300-30 MG ORAL TABLET ACETAMINOPHEN-CODEINE 13909339266 No Longer Active Carlton Hu MD Active TYLENOL WITH CODEINE #3 300-30 MG ORAL TABLET 1-2 po q6hr PRN Pa in ACETAMINOPHEN-CODEINE 96727124686 No Longer Active David HERNANDEZ RN Active ACYCLOVIR 800 MG ORAL TABLET 1 po 5 times daily x 7 days ACYCLOVIR 41600768468 No Longer Active 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 WOOL [employer]LEECE SORTER Active TOPAMAX 100 MG ORAL TABLET 1 by mouth twice daily TOPIRAMATE 97482396778 Active Carlton Hu MD Active TRIAMCINOLONE ACETONIDE 0.1 % EXTERNAL OINTMENT Apply to affected areas TID PRN Rash/Itching for up 2 weeks TRIAMCINOLONE ACETON KAYLA 39734733616 No Longer Active 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 WOOL [employer] SORTER Active AMOXICILLIN 500 MG ORAL CAPSULE 1 cap by mouth twice daily 10/21 AMOXICILLIN 32666527544 No Longer Active 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 WOOL [employer] SORTER Active CYMBALTA 30 MG ORAL CAPSULE DELAYED RELEASE PARTICLES 1 cap by mouth daily for depression DULOXETINE HCL 67492390611 No Longer Active Carlton Hu MD Active TUSSIONEX PENNKINETIC ER 10-8 MG/5ML ORAL SUSPENSION E XTENDED RELEASE 5ml po q12hr PRN Cough HYDROCOD POLST-CHLORPHEN POLST 05660991112 Active 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 WOOL [employer]ECE SORTER Active PREDNISONE 20 MG ORAL TABLET Take 2 tabs day 1 and 2 and 1 t ab days 3 and 4 PREDNISONE 88609159320 No Longer Active 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 WOOL [employer]ECE SORTER Active DOXYCYCLINE HYCLATE 100 MG ORAL CAPSULE 1 cap by mouth twice latasha ly DOXYCYCLINE HYCLATE 75309836284 No Longer Active 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 WOOL F[employer] SORTER Active TOPAMAX 100 MG ORAL TABLET Take 1 tablet po bid TOPIRAMATE 00611014156 No Longer Active 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 WOOL FLEECE SORTER Active TUSSIONEX PENNKINETIC ER 10-8 MG/5ML ORAL SUSPENSION E XTENDED RELEASE 5ml po q12hr PRN Cough HYDROCOD POLST-CHLORPHEN POLST 5 3202915289 No Longer Active 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 WOOL FLEECE SORTER Active AUGMENTIN 875-125 MG ORAL TABLET 1 po BID x 10 days 18/04/16 AMOXICILLIN-POT CLAVULANATE 22687492921 No Longer Active 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 WOOL FLEECE SORTER Active PREDNISONE 50 MG ORAL TABLET Take 50 mg dialy for 6 day s 7 PREDNISONE 97570082437 No Longer Active 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 RICEN Active TUSSIONEX PENNKINETIC ER 10-8 MG/5ML ORAL SUSPENSION E XTENDED RELEASE 5ml po q12hr PRN Cough HYDROCOD POLST-CHLORPHEN POLST 5 1957839466 No Longer Active Cherelle Torres RN Active PREDNISONE 20 MG ORAL TABLET two tabs by mouth today, then one tab by mouth days two and three and four PREDNISONE 37766303324 No Lo nger Active Cherelle Torres RN Active AZITHROMYCIN 250 MG ORAL TABLET 2 po qd x 1 day, then 1 po q d x 4 days AZITHROMYCIN 15889718755 No Longer Active Ridge Bess DO Active PREDNISONE 20 MG ORAL TABLET 2 po qd x 5 days P REDNISONE 86976559554 No Longer Active Perez Mora MD Active PROAIR HFA 108 (90 BASE) MCG/ACT INHALATION AEROSOL SO LUTION 2 puffs four times a day as needed ALBUTEROL SULFATE 95716557854 No Long er Active Becky FUENTES Active ASPIRIN 81 MG ORAL TABLET 1 po qd ASPIRIN 62532545230 Active Carlton Hu MD Active PREDNISONE 20 MG ORAL TABLET 1 tab twice daily for 3 d ay, then one daily for three days PREDNISONE 28988740214 No Longer Active Carlton Hu MD Active AUGMENTIN 875-125 MG ORAL TABLET 1 po BID x 10 days 20 16/03/22 AMOXICILLIN-POT CLAVULANATE 95956621917 No Longer Active Elise Garcia APRN Active TERBINAFINE HCL 250 MG ORAL TABLET 1 qDay for nail fungus 7 TERBINAFINE HCL 35871508250 No Longer Active Carlton Hu MD A ctive AMOXICILLIN 500 MG ORAL CAPSULE 1 cap by mouth three times a day AMOXICILLIN 50467127565 No Longer Active Carlton Hu MD Active ELMIRON 100 MG ORAL CAPSULE 2 tablets in the am and 1 tablet at hs PENTOSAN POLYSULFATE SODIUM 99630045083 No Longer Active Robert Hu MD Active MUCINEX D 60-600 MG ORAL TABLET EXTENDED RELEASE 12 HOUR 1 t ab po q am PSEUDOEPHEDRINE-GUAIFENESIN 85954691994 No Longer Act nael Carlton Hu MD Active MUCINEX DM MAXIMUM STRENGTH 60-1200 MG ORAL TABLET EXT ENDED RELEASE 12 HOUR 1 tab po q am DEXTROMETHORPHAN-GUAIFENESIN 41056546490 No Longer Active Carlton uH MD Active TUSSIONEX PENNKINETIC ER 10-8 MG/5ML ORAL SUSPENSION E XTENDED RELEASE 5ml po q12hr PRN Cough HYDROCOD POLST-CHLORPHEN POLST 5 3230564528 No Longer Active Carlton Hu MD Active POTASSIUM CHLORIDE ER 20 MEQ ORAL TABLET EXTENDED RELE ASE Take 1 by mouth 4 times daily for 7 days POTASSIUM CHLORIDE 57172855199 No Longer Active Carlton Hu MD Active ZITHROMAX 250 MG ORAL TABLET 2 po today, then 1 po q days 2-5 14/09/04 AZITHROMYCIN 52729342851 No Longer Active Elise Garcia APRN Active TUSSIONEX PENNKINETIC ER 10-8 MG/5ML ORAL SUSPENSION E XTENDED RELEASE 5 ml twice a day as needed for cough HYDROCOD POLST-CHLORPH EN POLST 56537803688 No Longer Active Elise Arell [employer]LEECE SORTER Active MONTELUKAST SODIUM 10 MG ORAL TABLET 1 po daily for Allergy MONTELUKAST SODIUM 45843065487 Active Carlton Hu MD Ac tive TUSSIONEX PENNKINETIC ER 10-8 MG/5ML ORAL SUSPENSION E XTENDED RELEASE 5ml po q12hr PRN Cough HYDROCOD POLST-CHLORPHEN POLST 5 4821018022 No Longer Active Hugo Restrepo MD Active LYRICA 100 MG ORAL CAPSULE Take 1 tab po BID for fibromyalgia 20 11/08/21 PREGABALIN 67749617737 No Longer Active Elise Garcia APRN A ctive PREDNISONE 20 MG ORAL TABLET 2 tabs daily for 3 days, 1 tab daily for 3 days, 1/2 tab daily for 2 days PREDNISONE 20341140354 No Longer Active Jillina Frakerriel WO[employer] FLEECE SORTER Active TUSSIONEX PENNKINETIC ER 10-8 MG/5ML ORAL SUSPENSION E XTENDED RELEASE 5 mL PO q 12 hrs PRN cough HYDROCOD POLST-CHLORPHEN POLST 649340 81750 No Longer Active Jillina Frazell [employer]ECE SORTER Active FLUTICASONE PROPIONATE 50 MCG/ACT NASAL SUSPENSION 2 s prays each nostril daily until bottle is empty FLUTICASONE PROPIONATE 319265982 99 No Longer Active Jillina Frazell [employer] SORTER Active ASMANEX 60 METERED DOSES 220 MCG/INH INHALATION AEROSO L POWDER BREATH ACTIVATED 1 puff bid with rinse after MOMETASONE FUROATE 9900582 4102 No Longer Active Jillina Cesarl [employer]ECE SORTER Active ZITHROMAX Z-REYNA 250 MG ORAL TABLET 2 today, then 1 daily for 4 d ays AZITHROMYCIN 49144769846 No Longer Active Elise Garcia WOOL FLEECE SORTER Active TUSSIONEX PENNKINETIC ER 10-8 MG/5ML ORAL SUSPENSION E XTENDED RELEASE 5ml po q12hr PRN Cough HYDROCOD POLST-CHLORPHEN POLST 5 0227877618 No Longer Active Elise Garcia APRN Active PREDNISONE 20 MG ORAL TABLET 2 tabs daily for 3 days, 1 tab daily for 3 days, 1/2 tab daily for 2 days PREDNISONE 55928807846 No Longer Active Jillina Frazell WOOL [employer]LEECE SORTER Active AMOXICILLIN 500 MG ORAL CAPSULE 2 po BID x 10 days 201 09/29/08 AMOXICILLIN 16180107454 No Longer Active Jillina Frazell WO[employer]ECE SORTER Act nael SINGULAIR 10 MG ORAL TABLET 1 po qday for allergies 20 16/10/12 MONTELUKAST SODIUM 71128084373 No Longer Active Carlton Hu MD Active LEVAQUIN 500 MG ORAL TABLET 1 tablet by mouth daily 20 13/09/24 LEVOFLOXACIN 23168934883 No Longer Active Carlton Hu MD Acti ve FLUTICASONE PROPIONATE 50 MCG/ACT NASAL SUSPENSION 2 s prays each nostril daily for 2 weeks, then 1 spray each nostril daily. FLUTICASONE PROPIONATE 26426744150 Active David Lopes APRN Active ZITHROMAX 250 MG ORAL TABLET 2 po today, then 1 po q days 2-5 20 13/08/10 AZITHROMYCIN 61921675713 No Longer Active Elise Garcia APRN Active CEFDINIR 300 MG ORAL CAPSULE 1 po BID x 10 days CEFDINIR 70956409251 No Longer Active Carlton Hu MD Active ZOCOR 40 MG ORAL TABLET 1 tab by mouth daily SI MVASTATIN 96426648128 No Longer Active Carlton Hu MD Active CYCLOBENZAPRINE HCL 10 MG ORAL TABLET 1 tablet by mouth BID prn had pain CYCLOBENZAPRINE HCL 97726693102 No Longer Active Jayden Hu MD Active LEVOFLOXACIN 500 MG ORAL TABLET 1 tab PO daily x 10 days LEVOFLOXACIN 46096705272 No Longer Active Carlton Hu MD Acti ve PREDNISONE 20 MG ORAL TABLET 3 tab PO qd x 2d, 2 tab P O qd x 2d, 1 tab PO qd x 2d, 1/2 tab PO qd x 2d PREDNISONE 61496497863 No Lo nger Active Carlton Hu MD Active FLUTICASONE PROPIONATE 50 MCG/ACT NASAL SUSPENSION 1 t o 2 sprays each nostril daily FLUTICASONE PROPIONATE 20384948166 No Longer Ac matthew HERNANDEZ Active CHERATUSSIN AC 100-10 MG/5ML ORAL SYRUP 1 tsp by mouth every 4 hours as needed for cough GUAIFENESIN-CODEINE 27813610236 No Longe r Active Blaine HERNANDEZ Active PROMETHAZINE-CODEINE 6.25-10 MG/5ML ORAL SYRUP 1 tsp b y mouth every 6 hours if needed for cough PROMETHAZINE-CODEINE 94935324685 No Longer Active Blaine HERNANDEZ Active CHERATUSSIN AC 100-10 MG/5ML ORAL SYRUP 1 tsp by mouth every 4 hours as needed for cough GUAIFENESIN-CODEINE 75213821487 No Longe r Active Blaine HERNANDEZ Active ZITHROMAX Z-REYNA 250 MG ORAL TABLET 2 today, then 1 daily for 4 d ays AZITHROMYCIN 39722653567 No Longer Active Columba Raida Act nael ZITHROMAX 250 MG ORAL TABLET 2 po today, then 1 po q days 2-5 20 14/03/21 AZITHROMYCIN 88742904375 No Longer Active Carlton Hu MD Active ZITHROMAX Z-REYNA 250 MG ORAL TABLET 2 today, then 1 daily for 4 d ays AZITHROMYCIN 04905141326 No Longer Active Columba Raida Act nael AUGMENTIN 875-125 MG ORAL TABLET 1 po BID x 10 days 13/01/20 AMOXICILLIN-POT CLAVULANATE 32256075133 No Longer Active Diya De Guzman APRN Active ZITHROMAX 250 MG ORAL TABLET 2 po today, then 1 po q days 2-5 20 12/08/14 AZITHROMYCIN 86866988323 No Longer Active Carlton Hu MD Active PREMARIN 0.625 MG ORAL TABLET TAKE 1 TAB BY MOUTH DAILY ESTROGENS CONJUGATED 56420738627 No Longer Active Ridge Bess DO A ctive CYMBALTA 30 MG ORAL CAPSULE DELAYED RELEASE PARTICLES 1 cap by mouth daily DULOXETINE HCL 72770349312 No Longer Active Ridge tam DO Active AMOXICILLIN 500 MG ORAL CAPSULE 1 tab by mouth 3 times daily x 10 days AMOXICILLIN 92705210308 No Longer Active Carlton bustamante MD Active AMOXICILLIN 500 MG ORAL CAPSULE 1 tab by mouth 3 times daily x 10 days AMOXICILLIN 34344401664 No Longer Active Carlton bustamante MD Active PROMETHAZINE-CODEINE 6.25-10 MG/5ML ORAL SYRUP 1 tsp b y mouth every 8 hours prn cough PROMETHAZINE-CODEINE 02289222030 No Longer Acti ve Carlton Hu MD Active MEDROL 4 MG ORAL TABLET THERAPY PACK 6 pills x 1 day, then 5 pills x 1 day then 4 pills x 1 day, then 3 pills x 1 day, then 2 pills x 1 day, then 1 pill x 1 day, then stop METHYLPREDNISOLONE 30641573331 No Long er Active Perez Mora MD Active AZITHROMYCIN 250 MG ORAL TABLET 2 po qd x 1 day, then 1 po q d x 4 days AZITHROMYCIN 63109063498 No Longer Active Perez Ambriz MD Active SYMBICORT 160-4.5 MCG/ACT INHALATION AEROSOL 2 puffs bid wit h rinse after BUDESONIDE-FORMOTEROL FUMARATE 28075362421 N o Longer Active Perez Mora MD Active LYRICA 75 MG ORAL CAPSULE TAKE 1 CAPSULE BY MOUTH TWICE DAILY PREGABALIN 88376488824 No Longer Active Carlton Hu MD Acti ve TOPAMAX 25 MG ORAL TABLET 1 qHS x 1 week, then 1 BID x 1 week, then 1 qAM and 2 qHS x 1 week, then 2 BID (migraine prevention) T OPIRAMATE 42034087125 No Longer Active Jerica FUENTES Active TOPAMAX 50 MG ORAL TABLET take 1 tab po BID for migraines. 07/02 TOPIRAMATE 71846886166 No Longer Active Jerica FUENTES Active TRIAMCINOLONE ACETONIDE 0.1 % EXTERNAL CREAM apply three roger es daily prn rash TRIAMCINOLONE ACETONIDE 90123850433 No Longer Active Carlton Hu MD Active CHERATUSSIN AC 100-10 MG/5ML ORAL SYRUP 5ml po q6hr PRN Cough 20 13/04/14 GUAIFENESIN-CODEINE 37667463087 No Longer Active Carlton Hu MD Active MEDROL 4 MG ORAL TABLET THERAPY PACK 6 tabs on day 1, 5 tabs on day 2, 4 tabs on day 3, 3 tabs on day 4, 2 tabs on day 5, 1 tab on day 6 2013 METHYLPREDNISOLONE 80754981628 No Longer Active Perez Mora MD Active AZITHROMYCIN 250 MG ORAL TABLET 2 po qd x 1 day, then 1 po q d x 4 days AZITHROMYCIN 59152109520 No Longer Active Perez Ambriz MD Active PROPRANOLOL HCL 60 MG ORAL TABLET 1 PO Q D PROPRANOLOL HCL 93082537305 No Longer Active Perez Mora MD Activ e CHERATUSSIN AC 100-10 MG/5ML ORAL SYRUP take one tsp po Q 6h ours prn cough GUAIFENESIN-CODEINE 99475529469 No Longer Active Zia Mora MD Active AUGMENTIN 875-125 MG ORAL TABLET 1 tab by mouth twice daily with food AMOXICILLIN-POT CLAVULANATE 25185396952 No Longer Act nael Perez Mora MD Active CHERATUSSIN AC 100-10 MG/5ML ORAL SYRUP 1 tsp by mouth every 4 hours as needed for cough GUAIFENESIN-CODEINE 62376712489 No Longe r Active Hugo Restrepo MD Active ACETAMINOPHEN-CODEINE #3 300-30 MG ORAL TABLET 1 PO Q 4-6 HRS MA N PAIN ACETAMINOPHEN-CODEINE 06205741350 No Longer Active Hugo Restrepo MD Active LEVAQUIN 500 MG ORAL TABLET take one po QD LEVO FLOXACIN 08657244706 No Longer Active Griffin HERNANDEZ Active PREDNISONE 20 MG ORAL TABLET Take 3 tabs daily for 3 d ays, 2 tabs daily for 3 days, 1 tab daily for 3 days, 1/2 tab daily for 3 days 11/07 PREDNISONE 44652504489 No Longer Active Carlton Hu MD Acti ve AVELOX 400 MG ORAL TABLET 1 tab by mouth daily MOXIFLOXACIN HCL 48379397340 No Longer Active Carlton Hu MD Active CHERATUSSIN AC 100-10 MG/5ML ORAL SYRUP 1 tsp by mouth every 4 hours as needed for cough GUAIFENESIN-CODEINE 57755930696 No Longe r Active Hugo Restrepo MD Active AVELOX 400 MG ORAL TABLET 1 tab by mouth daily MOXIFLOXACIN HCL 78625629975 No Longer Active Marcy De La Rosa MD PhD Active TERBINAFINE HCL 250 MG ORAL TABLET 1 qDay T ERBINAFINE HCL 31192420640 No Longer Active Marcy De La Rosa MD PhD Active CHERATUSSIN AC 100-10 MG/5ML ORAL SYRUP 1 tsp by mouth every 4 hours as needed for cough GUAIFENESIN-CODEINE 44624647440 No Longe r Active Marcy De La Rosa MD PhD Active AVELOX 400 MG ORAL TABLET 1 tab by mouth daily MOXIFLOXACIN HCL 42247061126 No Longer Active Marcy De La Rosa MD PhD Active HYDROCODONE-ACETAMINOPHEN 5-325 MG ORAL TABLET 1 po q 6hr PRN co ugh HYDROCODONE-ACETAMINOPHEN 41431027231 No Longer Active Marcy De La Rosa MD PhD Active PREDNISONE 20 MG ORAL TABLET 2 tabs daily for 3 days, 1 tab daily for 3 days, 1/2 tab daily for 2 days PREDNISONE 96024458583 No Longer Active Carlton Hu MD Active CEFDINIR 300 MG ORAL CAPSULE by mouth twice a day 2011 CEFDINIR 66203501132 No Longer Active Carlton Hu MD Acti ve ACETAMINOPHEN-CODEINE #3 300-30 MG ORAL TABLET 1 tablet po q 4-6 hrs prn pain ACETAMINOPHEN-CODEINE 88305375973 No Longer Active Ridge Bess DO Active ZITHROMAX 250 MG ORAL TABLET 2 po today, then 1 po q days 2-5 20 03/07/07 AZITHROMYCIN 04609077275 No Longer Active Carlton Hu MD Active CHERATUSSIN AC 100-10 MG/5ML ORAL SYRUP take 1 tsp po q4-6 h ours prn cough GUAIFENESIN-CODEINE 59472711800 No Longer Active Jayden Hu MD Active ACETAMINOPHEN-CODEINE #3 300-30 MG ORAL TABLET 1 PO Q 4-6 HR PRN PAIN ACETAMINOPHEN-CODEINE 57979331922 No Longer Active Da raimundo Hu MD Active LORTAB 7.5-500 MG/15ML ORAL ELIXIR 7.5 ml po q 4 hour prn cough HYDROCODONE-ACETAMINOPHEN 14838713898 No Longer Active Carlton Hu MD Active PREDNISONE 20 MG ORAL TABLET 1 po bid 3 days, then 1 po q day 3 days PREDNISONE 32768203048 No Longer Active Carlton Hu MD Active CEFDINIR 300 MG ORAL CAPSULE by mouth twice a day 2011 CEFDINIR 83354921454 No Longer Active Carlton Hu MD Acti ve CEFDINIR 300 MG ORAL CAPSULE by mouth twice a day 2010 CEFDINIR 83441482350 No Longer Active Carlton Hu MD Acti ve CEFDINIR 300 MG ORAL CAPSULE by mouth twice a day 2010 CEFDINIR 10867674065 No Longer Active Carlton Hu MD Acti ve TESSALON PERLES 100 MG ORAL CAPSULE 1 tablet by mouth 3 times daily as needed for cough BENZONATATE 64563784991 No Longer Active Carlton Hu MD Active CEFDINIR 300 MG ORAL CAPSULE by mouth twice a day 2010 CEFDINIR 85260866504 No Longer Active Carlton Hu MD Acti ve ZITHROMAX Z-REYNA 250 MG ORAL TABLET 2 today, then 1 daily for 4 d ays AZITHROMYCIN 22894578433 No Longer Active Hugo Restrepo MD Active TESSALON PERLES 100 MG ORAL CAPSULE 1 tablet by mouth 3 times daily as needed for cough TESSALON PERLES 100 MG ORAL CAPSULE 91282 7 BENZONATATE Inactive PREDNISONE 20 MG ORAL TABLET 1 po bid 3 days, then 1 po q day 3 days PREDNISONE 20 MG ORAL TABLET 475738 PREDNISONE [place] ctive LORTAB 7.5-500 MG/15ML ORAL ELIXIR 7.5 ml po q 4 hour prn cough LORTAB 7.5-500 MG/15ML ORAL ELIXIR HYDROCODONE-A CETAMINOPHEN Inactive ACETAMINOPHEN-CODEINE #3 300-30 MG ORAL TABLET 1 PO Q 4-6 HR PRN PAIN ACETAMINOPHEN-CODEINE #3 300-30 MG ORAL TABLET 9 68269 ACETAMINOPHEN-CODEINE Inactive CHERATUSSIN AC 100-10 MG/5ML ORAL SYRUP take 1 tsp po q4-6 h ours prn cough CHERATUSSIN AC 100-10 MG/5ML ORAL SYRUP 368820 GUAIFENESIN-CODEINE Inactive ACETAMINOPHEN-CODEINE #3 300-30 MG ORAL TABLET 1 tablet po q 4-6 hrs prn pain ACETAMINOPHEN-CODEINE #3 300-30 MG ORAL TABLET 025389 ACETAMINOPHEN-CODEINE Inactive HYDROCODONE-ACETAMINOPHEN 5-325 MG ORAL TABLET 1 po q 6hr PRN co ugh HYDROCODONE-ACETAMINOPHEN 5-325 MG ORAL TABLET 115655 HYDROCODONE-ACETAMINOPHEN Inactive AVELOX 400 MG ORAL TABLET 1 tab by mouth daily AVELOX 400 MG ORAL TABLET MOXIFLOXACIN HCL Inactive CHERATUSSIN AC 100-10 MG/5ML ORAL SYRUP 1 tsp by mouth every 4 hours as needed for cough CHERATUSSIN AC 100-10 MG/5ML ORAL SYRUP 9 69727 GUAIFENESIN-CODEINE Inactive TERBINAFINE HCL 250 MG ORAL TABLET 1 qDay 07/08 TERBINAFINE HCL 250 MG ORAL TABLET 497729 TERBINAFINE HCL Inactive CHERATUSSIN AC 100-10 MG/5ML ORAL SYRUP 1 tsp by mouth every 4 hours as needed for cough CHERATUSSIN AC 100-10 MG/5ML ORAL SYRUP 9 95729 GUAIFENESIN-CODEINE Inactive ACETAMINOPHEN-CODEINE #3 300-30 MG ORAL TABLET 1 PO Q 4-6 HRS MA N PAIN ACETAMINOPHEN-CODEINE #3 300-30 MG ORAL TABLET 310542 ACETAMINOPHEN-CODEINE Inactive CHERATUSSIN AC 100-10 MG/5ML ORAL SYRUP 1 tsp by mouth every 4 hours as needed for cough CHERATUSSIN AC 100-10 MG/5ML ORAL SYRUP 9 26490 GUAIFENESIN-CODEINE Inactive AUGMENTIN 875-125 MG ORAL TABLET 1 tab by mouth twice daily with food AUGMENTIN 875-125 MG ORAL TABLET AMOXICIL MADELINE-POT CLAVULANATE Inactive CHERATUSSIN AC 100-10 MG/5ML ORAL SYRUP take one tsp po Q 6h ours prn cough CHERATUSSIN AC 100-10 MG/5ML ORAL SYRUP 371205 GUAIFENESIN-CODEINE Inactive PROPRANOLOL HCL 60 MG ORAL TABLET 1 PO Q D PROPRANOLOL HCL 60 MG ORAL TABLET 032823 PROPRANOLOL HCL Inactive TOPAMAX 50 MG ORAL TABLET take 1 tab po BID for migraines. 07/02 TOPAMAX 50 MG ORAL TABLET 031434 TOPIRAMATE Inacti ve TOPAMAX 25 MG ORAL TABLET 1 qHS x 1 week, then 1 BID x 1 week, then 1 qAM and 2 qHS x 1 week, then 2 BID (migraine prevention) TOPAMAX 25 MG ORAL TABLET 814952 TOPIRAMATE Inactive LYRICA 75 MG ORAL CAPSULE TAKE 1 CAPSULE BY MOUTH TWICE DAILY LYRICA 75 MG ORAL CAPSULE 820779 PREGABALIN Inactive SYMBICORT 160-4.5 MCG/ACT INHALATION AEROSOL 2 puffs bid wit h rinse after SYMBICORT 160-4.5 MCG/ACT INHALATION AEROSOL 124 7737 BUDESONIDE-FORMOTEROL FUMARATE Inactive PROMETHAZINE-CODEINE 6.25-10 MG/5ML ORAL SYRUP 1 tsp b y mouth every 8 hours prn cough PROMETHAZINE-CODEINE 6.25-10 MG/ 5ML ORAL SYRUP 321599 PROMETHAZINE-CODEINE Inactive CYMBALTA 30 MG ORAL CAPSULE DELAYED RELEASE PARTICLES 1 cap by mouth daily CYMBALTA 30 MG ORAL CAPSULE DELAYED RELE ASE PARTICLES 950224 DULOXETINE HCL Inactive PREMARIN 0.625 MG ORAL TABLET TAKE 1 TAB BY MOUTH DAILY PREMARIN 0.625 MG ORAL TABLET ESTROGENS CONJUGATED Inactive CHERATUSSIN AC 100-10 MG/5ML ORAL SYRUP 1 tsp by mouth every 4 hours as needed for cough CHERATUSSIN AC 100-10 MG/5ML ORAL SYRUP 9 98897 GUAIFENESIN-CODEINE Inactive PROMETHAZINE-CODEINE 6.25-10 MG/5ML ORAL SYRUP 1 tsp b y mouth every 6 hours if needed for cough PROMETHAZINE-CODEINE 6.25-10 MG/5ML ORAL SYRUP 656321 PROMETHAZINE-CODEINE Inactive CHERATUSSIN AC 100-10 MG/5ML ORAL SYRUP 1 tsp by mouth every 4 hours as needed for cough CHERATUSSIN AC 100-10 MG/5ML ORAL SYRUP 9 00253 GUAIFENESIN-CODEINE Inactive FLUTICASONE PROPIONATE 50 MCG/ACT NASAL SUSPENSION 1 t o 2 sprays each nostril daily FLUTICASONE PROPIONATE 50 MCG/AC T NASAL SUSPENSION 7297759 FLUTICASONE PROPIONATE Inactive PREDNISONE 20 MG ORAL TABLET 3 tab PO qd x 2d, 2 tab P O qd x 2d, 1 tab PO qd x 2d, 1/2 tab PO qd x 2d PREDNISONE 20 MG ORAL TAB LET 892371 PREDNISONE Inactive LEVOFLOXACIN 500 MG ORAL TABLET 1 tab PO daily x 10 days LEVOFLOXACIN 500 MG ORAL TABLET 468546 LEVOFLOXACIN Inactive CYCLOBENZAPRINE HCL 10 MG ORAL TABLET 1 tablet by mouth BID prn had pain CYCLOBENZAPRINE HCL 10 MG ORAL TABLET 438918 CYCLOBENZAPRINE HCL Inactive ZOCOR 40 MG ORAL TABLET 1 tab by mouth daily 4 ZOCOR 40 MG ORAL TABLET 248740 SIMVASTATIN Inactive TUSSIONEX PENNKINETIC ER 10-8 MG/5ML [...] FLUTICASONE PROPIO EFE 50 MCG/ACT NASAL SUSPENSION 0764346 FLUTICASONE PROPIONATE Inactive TUSSIONEX PENNKINETIC ER 10-8 MG/5ML ORAL SUSPENSION E XTENDED RELEASE 5 mL PO q 12 hrs PRN cough TUSSIONEX PENNKINETI C ER 10-8 MG/5ML ORAL SUSPENSION EXTENDED RELEASE HYDROCOD POLST-CHLORPHEN POLST I nactive LYRICA 100 MG ORAL CAPSULE Take 1 tab po BID for fibromyalgia 20 11/08/21 LYRICA 100 MG ORAL CAPSULE 157572 PREGABALIN Inact nael TUSSIONEX PENNKINETIC ER 10-8 [...] three days PREDNISONE 20 MG ORAL TABLET [id number] PREDNIS ONE Inactive PROAIR HFA 108 (90 BASE) MCG/ACT INHALATION AEROSOL SO LUTION 2 puffs four times a day as needed PROAIR HFA 108 (90 B ASE) MCG/ACT INHALATION AEROSOL SOLUTION ALBUTEROL SULFATE Inactive PREDNISONE 20 MG ORAL TABLET two tabs by mouth today, then one tab by mouth days two and three and four PREDNISONE 20 MG ORAL TAB LET [id number] PREDNISONE Inactive TUSSIONEX PENNKINETIC ER 10-8 MG/5ML [...] bid 04/20 TOPAMAX 100 MG ORAL TABLET 438887 TOPIRAMATE Inactive CYMBALTA 30 MG ORAL CAPSULE DELAYED RELEASE PARTICLES 1 cap by mouth daily for depression CYMBALTA 30 MG ORAL CAPSULE DELAYED RELEASE PARTICLES [id number] DULOXETINE HCL Inactive TYLENOL WITH CODEINE #3 300-30 MG ORAL TABLET 1-2 po q6hr PRN Pa in TYLENOL WITH CODEINE #3 300-30 MG ORAL TABLET 238020 ACETAMINOPHEN-CODEINE Inactive TYLENOL WITH CODEINE #3 300-30 MG ORAL TABLET TYLENOL WITH CODEINE #3 300-30 MG ORAL TABLET 568510 ACETAMINOPHEN-CODEINE Inactive TRIAMCINOLONE ACETONIDE 0.1 % EXTERNAL CREAM apply bid spari ngly to rash TRIAMCINOLONE ACETONIDE 0.1 % EXTERNAL CREAM 101 4314 TRIAMCINOLONE ACETONIDE Inactive GUAIFENESIN-CODEINE 100-10 MG/5ML ORAL SYRUP 1 tsp PO q6h PRN co ugh GUAIFENESIN-CODEINE 100-10 MG/5ML ORAL SYRUP 182165 GUAIFENESIN-CODEINE Inactive ATORVASTATIN CALCIUM 10 MG ORAL TABLET 1 pill by mouth night ly, for cholesterol ATORVASTATIN CALCIUM 10 MG ORAL TABLET 793140 ATORVASTATIN CALCIUM Inactive PAXIL 40 MG ORAL TABLET take 1 tab po qday for depression 0 PAXIL 40 MG ORAL TABLET 8676648 PAROXETINE HCL Inactive ZITHROMAX Z-REYNA 250 MG ORAL TABLET 2 today, then 1 daily for 4 d ays ZITHROMAX Z-REYNA 250 MG ORAL TABLET 359937 AZITHROMYCIN Inactive CEFDINIR 300 MG ORAL CAPSULE [...] 2-08 1703/07/07 ZITHROMAX 250 MG ORAL TABLET 935222 AZITHROMYCIN [place] [facility] CEFDINIR 300 MG ORAL CAPSULE by mouth twice a day 2011 CEFDINIR 300 MG ORAL CAPSULE 20020704 CEFDINIR Inactive PREDNISONE 20 MG ORAL TABLET 2 tabs daily for 3 days, 1 tab daily for 3 days, 1/2 tab daily for 2 days PREDNISONE 20 MG ORAL T ABLET 380384 PREDNISONE Inactive AVELOX 400 MG ORAL TABLET [...] days 11/07 PREDNISONE 20 MG ORAL TABLET 835925 PREDNISONE Inactive LEVAQUIN 500 MG ORAL TABLET take one po QD LEVAQUIN 500 MG ORAL TABLET 059597 LEVOFLOXACIN Inactive AZITHROMYCIN 250 MG ORAL TABLET 2 po qd x 1 day, then 1 po q d x 4 days AZITHROMYCIN 250 MG ORAL TABLET 083986 AZITHROMY GIOVANNI Inactive MEDROL 4 MG ORAL TABLET THERAPY PACK 6 tabs on day 1, 5 tabs on day 2, 4 tabs on day 3, 3 tabs on day 4, 2 tabs on day 5, 1 tab on day 6 2013 MEDROL 4 MG ORAL TABLET THERAPY PACK 274825 METHYLPREDNISOLONE [place] [facility] CHERATUSSIN AC 100-10 MG/5ML ORAL SYRUP 5ml po q6hr PRN Cough 20 13/04/14 CHERATUSSIN AC 100-10 MG/5ML ORAL SYRUP 504315 GUAIFENE SIN-CODEINE Inactive TRIAMCINOLONE ACETONIDE 0.1 % EXTERNAL CREAM apply three roger es daily prn rash TRIAMCINOLONE ACETONIDE 0.1 % EXTERNAL CREAM 101 4314 TRIAMCINOLONE ACETONIDE Inactive AZITHROMYCIN 250 MG ORAL TABLET 2 po qd x 1 day, then 1 po q d x 4 days AZITHROMYCIN 250 MG ORAL TABLET 315653 AZITHROMY GIOVANNI Inactive MEDROL 4 MG ORAL TABLET THERAPY PACK 6 pills x 1 day, then 5 pills x 1 day then 4 pills x 1 day, then 3 pills x 1 day, then 2 pills x 1 day, then 1 pill x 1 day, then stop MEDROL 4 MG ORAL TABLET THERAPY PACK 604150 METHYLPREDNISOLONE Inactive AMOXICILLIN 500 MG ORAL CAPSULE 1 tab by mouth 3 times daily x 10 days AMOXICILLIN 500 MG ORAL CAPSULE 778269 AMOXICILL IN Inactive AMOXICILLIN 500 MG ORAL CAPSULE 1 tab by mouth 3 times daily x 10 days AMOXICILLIN 500 MG ORAL CAPSULE 159364 AMOXICILL IN Inactive ZITHROMAX 250 MG ORAL TABLET 2 po today, then 1 po q days 2-5 20 12/08/14 ZITHROMAX 250 MG ORAL TABLET 768772 AZITHROMYCIN [facility] AUGMENTIN 875-125 MG ORAL TABLET 1 po BID x 10 days 20 13/01/20 AUGMENTIN 875-125 MG ORAL TABLET AMOXICILLIN-POT CLAVULANATE Inactive ZITHROMAX Z-REYNA 250 MG ORAL TABLET 2 today, then 1 daily for 4 d ays ZITHROMAX Z-REYNA 250 MG ORAL TABLET 770776 AZITHROMYCIN Inactive ZITHROMAX 250 MG ORAL TABLET 2 po today, then 1 po q days 2-5 20 14/03/21 ZITHROMAX 250 MG ORAL TABLET 862052 AZITHROMYCIN [place] ctive ZITHROMAX Z-REYNA 250 MG ORAL TABLET 2 today, then 1 daily for 4 d ays ZITHROMAX Z-REYNA 250 MG ORAL TABLET 621015 AZITHROMYCIN Inactive CEFDINIR 300 MG ORAL CAPSULE 1 po BID x 10 days 06/21 CEFDINIR 300 MG ORAL CAPSULE 359585 CEFDINIR Inactive ZITHROMAX 250 MG ORAL TABLET 2 po today, then 1 po q days 2-5 20 13/08/10 ZITHROMAX 250 MG ORAL TABLET 417290 AZITHROMYCIN [place] [facility] LEVAQUIN 500 MG ORAL TABLET 1 tablet by mouth daily 13/09/24 LEVAQUIN 500 MG ORAL TABLET 079675 LEVOFLOXACIN Inactive SINGULAIR 10 MG ORAL TABLET 1 po qday for allergies 20 14/01/12 SINGULAIR 10 MG ORAL TABLET 724817 MONTELUKAST SODIUM Inactive AMOXICILLIN 500 MG ORAL CAPSULE 2 po BID x 10 days 201 09/29/08 AMOXICILLIN 500 MG ORAL CAPSULE 558457 AMOXICILLIN Inactive PREDNISONE 20 MG ORAL TABLET 2 tabs daily for 3 days, 1 tab daily for 3 days, 1/2 tab daily for 2 days PREDNISONE 20 MG ORAL T ABLET 981489 PREDNISONE Inactive ZITHROMAX Z-REYNA 250 MG ORAL TABLET 2 today, then 1 daily for 4 d ays ZITHROMAX Z-REYNA 250 MG ORAL TABLET 880129 AZITHROMYCIN Inactive PREDNISONE 20 MG ORAL TABLET 2 tabs daily for 3 days, 1 tab daily for 3 days, 1/2 tab daily for 2 days PREDNISONE 20 MG ORAL T ABLET 480218 PREDNISONE Inactive ZITHROMAX 250 MG ORAL TABLET 2 po today, then 1 po q days 2-5 20 14/09/04 ZITHROMAX 250 MG ORAL TABLET 076629 AZITHROMYCIN [place] ctive AMOXICILLIN 500 MG ORAL CAPSULE 1 cap by mouth three times a day AMOXICILLIN 500 MG ORAL CAPSULE 145507 AMOXICILLIN Inactive TERBINAFINE HCL 250 MG ORAL TABLET 1 qDay for nail fungus 7 TERBINAFINE HCL 250 MG ORAL TABLET 196899 TERBINAFINE HCL Inact nael AUGMENTIN 875-125 MG ORAL TABLET 1 po BID x 10 days 16/03/22 AUGMENTIN 875-125 MG ORAL TABLET AMOXICILLIN-POT CLAVULANATE Inactive PREDNISONE 20 MG ORAL TABLET 2 po qd x 5 days PREDNISONE 20 MG ORAL TABLET 341002 PREDNISONE Inactive AZITHROMYCIN 250 MG ORAL TABLET 2 po qd x 1 day, then 1 po q d x 4 days AZITHROMYCIN 250 MG ORAL TABLET 277292 AZITHROMY GIOVANNI Inactive PREDNISONE 50 MG ORAL TABLET Take 50 mg dialy for 6 day s 7 PREDNISONE 50 MG ORAL TABLET 269043 PREDNISONE Inactive AUGMENTIN 875-125 MG ORAL TABLET 1 po BID x 10 days 18/04/16 AUGMENTIN 875-125 MG ORAL TABLET AMOXICILLIN-POT CLAVULANATE Inactive DOXYCYCLINE HYCLATE 100 MG ORAL CAPSULE 1 cap by mouth twice latasha ly DOXYCYCLINE HYCLATE 100 MG ORAL CAPSULE 2387152 DOXYCYCL INE HYCLATE Inactive PREDNISONE 20 MG ORAL TABLET Take 2 tabs day 1 and 2 and 1 t ab days 3 and 4 PREDNISONE 20 MG ORAL TABLET 511235 PREDNISONE Inactive AMOXICILLIN 500 MG ORAL CAPSULE 1 cap by mouth twice daily 10/21 AMOXICILLIN 500 MG ORAL CAPSULE 514970 AMOXICILLIN Inactive TRIAMCINOLONE ACETONIDE 0.1 % EXTERNAL OINTMENT Apply to affected areas TID PRN Rash/Itching for up 2 weeks TRIAMCINOLON E ACETONIDE 0.1 % EXTERNAL OINTMENT 5838360 TRIAMCINOLONE ACETONIDE Inactive ACYCLOVIR 800 MG ORAL TABLET 1 po 5 times daily x 7 days ACYCLOVIR 800 MG ORAL TABLET 494497 ACYCLOVIR Inactive AMOXICILLIN-POT CLAVULANATE 875-125 MG ORAL TABLET 1 pill by mouth twice daily AMOXICILLIN-POT CLAVULANATE 875-125 MG ORAL TABL ET 057697 AMOXICILLIN-POT CLAVULANATE Inactive Vital Signs Date Name [...] Panel - Chemistry sodium, serum 137 mmol/L 243-041 4753/10/08 carbon dioxide, venous blood 29.9 mmol/L 21.0-32 [...] 0.50 mg/dL 0.00-1.00 cholesterol, serum 324 mg/dL 027-601 9606/10/08 triglyceride, serum, fasting 130 mg/dL 30-200 HDL [...] 50-136 Encounters Code Encounter Date Provider Facility CPT-11471 [id number] Vst-Est Level III 11:01:08 CDT Ra joe Lopes [facility] CPT-08023 Level 3 Est. Patient 14:41:20 [employer]ATIONAL C[employer] PASTOR David lion [facility] CPT-48847 [id number] Vst-Est Level IV 09:06:31 C ESAU Hu MD [facility] CPT-03439 Level 3 Est. Patient 14:16:41 CDT David Tin dle [facility] CPT-48612 Level 3 Est. Patient 13:57:55 CDT David Tin dle [facility] CPT-24512 Level 3 Est. Patient 16:08:07 CDT David Tin dle [facility] CPT-34995 Level 3 Est. Patient 16:53:54 CDT May haas MD [facility]-62698 [id number] Vst-Est Level IV 08:41:[address] Carlton Hu MD [facility] CPT-07286 Level 3 Est. Patient 09:46:49 [employer]ATIONAL C[employer] PASTOR David Muñiz dle [facility] CPT-54150 [id number] Vst-Est Level III 11:12:16 CDT Yanet Bess DO [facility] CPT-97520 Level 3 Est. Patient 11:34:49 [employer]ATIONAL C[employer] PASTOR Perez Mora MD [facility] CPT-99861 Level 4 Est. Patient 09:51:32 CONGREGATIONAL CARE PASTOR Carlton rich MD [facility] CPT-67550 Level 3 Est. Patient 10:26:00 CONGREGATIONAL CARE PASTOR Elise Are [facility] CPT-43404 Level 3 Est. Patient 13:35:41 [employer]ATIONAL C[employer] PASTOR Carlton rich MD [facility] CPT-77227 Level 3 Est. Patient 10:03:52 [employer]ATIONAL C[employer] PASTOR Carlton rich MD [facility] CPT-13445 Level 3 Est. Patient 12:17:50 CDT Hugo Restrepo MD [facility] CPT-79908 Level 3 Est. Patient 13:42:38 CDT Elise Are ll [facility] CPT-70113 Level 3 Est. Patient 13:23:51 CDT Diya cobian [facility] CPT-80455 Level 3 Est. Patient 14:22:19 [employer]ATIONAL C[employer] PASTOR Diya cobian [facility] CPT-34753 Level 3 Est. Patient 10:11:46 CDT Carlton rich MD [facility] CPT-80020 Level 3 Est. Patient 17:29:43 CDT Elise Are [facility] CPT-40175 Level 3 Est. Patient 11:58:06 CDT Elise Are ll [facility] CPT-05260 Level 4 Est. Patient 14:36:51 CDT Carlton rich MD [facility]-96960 Level 3 Est. Patient 18:16:00 CONGREGATIONAL CARE PASTOR Blaine Freeman [facility]-50355 Level 3 Est. Patient 09:45:49 CONG[employer]ATIONAL CARE PASTOR Carlton rich MD [facility] CPT-23816 Level 3 Est. Patient 13:19:20 CDT Carlton rich MD [facility] CPT-18080 Level 3 Est. Patient 13:06:43 CDT Ridge tam DO [facility] CPT-93601 Level 3 Est. Patient 10:03:07 CDT Perez Mora MD [facility] CPT-57121 Level 3 Est. Patient 19:50:35 [employer]ATIONAL C[employer] PASTOR Carlton rich MD [facility] CPT-34552 Level 4 Est. Patient 18:05:01 [employer]ATIONAL CARE PASTOR Carlton rich MD [facility] CPT-40659 Level 3 Est. Patient 10:45:55 CONG[employer]ATIONAL C[employer] PASTOR Hugo Restrepo MD [facility]-16132 Level 3 Est. Patient 14:12:49 CDT Griffin [facility] CPT-54586 Level 3 Est. Patient 17:37:24 CDT Carlton rich MD [facility] CPT-80534 Level 3 Est. Patient 16:51:54 CDT Carlton rich MD [facility] CPT-55817 Level 3 Est. Patient 12:18:11 CDT Hugo Restrepo MD [facility] CPT-02565 Level 3 Est. Patient 11:30:25 CDT Marcy crisostomo MD PhD [facility] CPT-35162 Level 3 Est. Patient 12:00:47 [employer]ATIONAL C[employer] PASTOR Carlton rich MD [facility] CPT-59692 Level 3 Est. Patient 16:31:06 [employer]ATIONAL CARE PASTOR Carlton rich MD [facility] CPT-32487 Level 3 Est. Patient 16:23:24 CONGREGATIONAL CARE PASTOR Ridge tam [facility] CPT-14560 Level 3 Est. Patient 12:34:12 CDT Carlton rich MD [facility] CPT-03627 Level 2 Est. Patient 15:43:33 CDT Robi armstrong MD [facility] CPT-25284 Level 4 Est. Patient 14:04:44 CDT Carlton rich MD [facility] CPT-63582 Level 3 Est. Patient 05:47:59 CDT Ridge tam [facility] CPT-40647 Level 3 Est. Patient 13:12:53 [employer]ATIONAL C[employer] PASTOR Carlton rich MD [facility] CPT-78492 Level 3 Est. Patient 14:26:53 CDT Hugo Restrepo MD [facility] Procedures Code Procedure Name Date Entry Date Standard Desc ription CPT-NH3516T (4274F 2P) Patient Reason Influenza immu nization not administered 14:13:39 [employer]ATIONAL C[employer] PASTOR CPT-00225 Venipuncture Draw Fee 15:53:34 CDT CPT-000 Give Appropriate Flu Vaccine 14:14:31 CDT 2 CPT-J1040 Depo Medrol 80 mg (Methyl Prednisolone A cetate) 10:42:44 CDT CPT-J1100 Decadron 8mg (Dexamethasone) 10:42:44 CDT 2 CPT-J0696 Rocephin 1gm Inj Solr 14:32:13 CDT CPT-J1020 Depo Medrol 60 mg (Methyl Prednisolone A cetate) 14:32:13 CDT CPT-J1100 Decadron 6mg (Dexamethasone) 14:32:13 CDT 2 CPT-66242 Hip bilat min 2V w AP pelvis 13:16:20 CDT 2 CPT-50953 Pelvis only 13:07:33 CDT CPT-72010 Spec Collection and Handling Fee 11:25:12 C DT CPT-81517 Fluzone Quadrivalent Intramuscular Suspe nsion 0.5 ML 14:31:55 CDT CPT-62718 Abx/Therapy Injection 13:28:47 [employer] C[employer] PASTOR CPT-J2930 Solu Medrol 125 mg (Methyl Prednisolone Sodium Succinate) 12:00:47 CONG[employer]ATIONAL C[employer] PASTOR CPT-15877 Venipuncture Draw Fee 11:33:31 CDT CPT-22301 EKG Trac and Interp 11:21:09 CDT CPT-45203 Chest 2V Frontal and Lat 11:21:09 CDT 12/15 CPT-07973 Venipuncture Draw Fee 08:02:34 CDT CPT-58764 Chest 2V Frontal and Lat 05:47:59 CDT 06/05
--- OUTSIDE RECORDS SUMMARY | 2019-10-08 08:45 | XMS REPORT | Clinical Summary ---
Author Author Caitlin, Juliana Martinez Organization [employer] [facility] Address Unknown [...] SEASONAL ALLERGIC RHINITIS 477.9 Resolved 9 Carlton uH MD Allergic rhinitis, cause unspecified BRONCHITIS, ACUTE [...] 35.0-35.9, adult BMI 35-35.9 Refinement 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 [employer] WR[employer] MACHINE TENDER Body Mass Index 35.0-35.9, adult BMI 33-33.9 Refinement 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 [employer] WR[employer]ING MACHINE TENDER Body Mass Index 35.0-35.9, adult BMI 34-34.9 Active 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 [employer]INE TENDER Body Mass Index 35.0-35.9, adult Upper respiratory [...] throat 462 Active 201 12/06/23 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 [employer] WR[employer] TENDER Acute pharyngitis Shingles 053.9 Active 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 [employer] WR[employer] MACHINE TENDER Herpes zoster without mention of complication Allergic [...] pill by mouth twice daily AMOXICILLIN-POT CLAVULANATE 20594034890 Active 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 [employer] WRAPPING MACHINE TENDER Active PAXIL 40 MG ORAL TABLET take 1 tab po qday for depression 0 PAROXETINE HCL 54510211269 No Longer Active 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 [employer] WRAPPING MACHINE TENDER Acti ve ATORVASTATIN CALCIUM 10 MG ORAL TABLET 1 pill by mouth night ly, for cholesterol ATORVASTATIN CALCIUM 68273733739 No Longer Active Ran dy Marianne [employer] WRAPPING MACHINE TENDER Active GUAIFENESIN-CODEINE 100-10 MG/5ML ORAL SYRUP 1 tsp PO q6h PRN co ugh GUAIFENESIN-CODEINE 94506945775 No Longer Active 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 [employer] WRAPPING MACHINE TENDER Active TOPIRAMATE 100 MG ORAL TABLET Take 1 tablet by mouth twice daily 19/04/21 TOPIRAMATE 18781735400 Active Carlton Hu MD Active PAROXETINE HCL 40 MG TABS TAKE 1 TABLET BY MOUTH ONCE DAILY FOR DEPRESSION PAROXETINE HCL 28890247622 Active Carlton Hu MD Active HYDROCHLOROTHIAZIDE 25 MG ORAL TABLET Take 1 tablet by mouth once daily HYDROCHLOROTHIAZIDE 33477803854 Active Carlton Hu MD Active AMOXICILLIN-POT CLAVULANATE 875-125 MG ORAL TABLET 1 pill by mouth twice daily AMOXICILLIN-POT CLAVULANATE 07199027207 No Longer Act nael Lopes APRN Active DULOXETINE HCL 60 MG ORAL CAPSULE DELAYED RELEASE PART ICLES TAKE 1 CAPSULE BY MOUTH ONCE DAILY FOR PAIN AND MOOD DULOXETINE HCL 002 63293753 Active Carlton Hu MD Active TRAMADOL HCL 50 MG TABS TAKE 1 TABLET BY MOUTH THREE TIMES DAILY WITH EXTRA STRENGTH TYLENOL TRAMADOL HCL 27845928295 Active Carlton Hu MD Active ALPRAZOLAM 0.5 MG TABS TAKE 1 TABLET BY MOUTH ONCE DAILY NEEDED ALPRAZOLAM 16565957499 Active Carlton uH MD Active GABAPENTIN 100 MG ORAL CAPSULE TAKE 1 CAPSULE BY MOUTH TWICE DAILY FOR FIBROMYALGIA GABAPENTIN 23011602276 Active Carlton Hu MD Active ELMIRON 100MG CAP TAKE 2 CAPSULES BY MOUTH IN THE MORNING AND 1 CAPSULE AT BEDTIME PENTOSAN POLYSULFATE SODIUM 80999512707 Active May Vivar MD Active TRIAMCINOLONE ACETONIDE 0.1 % EXTERNAL CREAM apply bid spari ngly to rash TRIAMCINOLONE ACETONIDE 98900306531 No Longer Active Carlton Hu MD Active TYLENOL WITH CODEINE #3 300-30 MG ORAL TABLET ACETAMINOPHEN-CODEINE 13125751901 No Longer Active Carlton Hu MD Active TYLENOL WITH CODEINE #3 300-30 MG ORAL TABLET 1-2 po q6hr PRN Pa in ACETAMINOPHEN-CODEINE 47493133859 No Longer Active David HERNANDEZ RN Active ACYCLOVIR 800 MG ORAL TABLET 1 po 5 times daily x 7 days ACYCLOVIR 41151209879 No Longer Active 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 [employer] WRAPPING MACHINE TENDER Active TOPAMAX 100 MG ORAL TABLET 1 by mouth twice daily TOPIRAMATE 10264207501 Active Carlton Hu MD Active TRIAMCINOLONE ACETONIDE 0.1 % EXTERNAL OINTMENT Apply to affected areas TID PRN Rash/Itching for up 2 weeks TRIAMCINOLONE ACETON KAYLA 74882910094 No Longer Active 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 [employer] WRAPPING MACHINE TENDER Active AMOXICILLIN 500 MG ORAL CAPSULE 1 cap by mouth twice daily 10/21 AMOXICILLIN 83096124604 No Longer Active 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 [employer] WRAPPING MACHINE TENDER Active CYMBALTA 30 MG ORAL CAPSULE DELAYED RELEASE PARTICLES 1 cap by mouth daily for depression DULOXETINE HCL 84489898534 No Longer Active Carlton Hu MD Active TUSSIONEX PENNKINETIC ER 10-8 MG/5ML ORAL SUSPENSION E XTENDED RELEASE 5ml po q12hr PRN Cough HYDROCOD POLST-CHLORPHEN POLST 75704354695 Active 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 [employer] WRAPPING MACHINE TENDER Active PREDNISONE 20 MG ORAL TABLET Take 2 tabs day 1 and 2 and 1 t ab days 3 and 4 PREDNISONE 76226909384 No Longer Active 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 [employer] WRAPPING MACHINE TENDER Active DOXYCYCLINE HYCLATE 100 MG ORAL CAPSULE 1 cap by mouth twice latasha ly DOXYCYCLINE HYCLATE 92892315539 No Longer Active 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 [employer] WRAPPING MACHINE TENDER Active TOPAMAX 100 MG ORAL TABLET Take 1 tablet po bid TOPIRAMATE 90866473768 No Longer Active 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 [employer] WRAPPING MACHINE TENDER Active TUSSIONEX PENNKINETIC ER 10-8 MG/5ML ORAL SUSPENSION E XTENDED RELEASE 5ml po q12hr PRN Cough HYDROCOD POLST-CHLORPHEN POLST 5 3937901712 No Longer Active 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 [employer] WRAPPING MACHINE TENDER Active AUGMENTIN 875-125 MG ORAL TABLET 1 po BID x 10 days 18/04/16 AMOXICILLIN-POT CLAVULANATE 15202780901 No Longer Active 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 [employer] WRAPPING MACHINE TENDER Active PREDNISONE 50 MG ORAL TABLET Take 50 mg dialy for 6 day s 7 PREDNISONE 40817183672 No Longer Active 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 RICEN Active TUSSIONEX PENNKINETIC ER 10-8 MG/5ML ORAL SUSPENSION E XTENDED RELEASE 5ml po q12hr PRN Cough HYDROCOD POLST-CHLORPHEN POLST 5 6785886894 No Longer Active Cherelle Torres RN Active PREDNISONE 20 MG ORAL TABLET two tabs by mouth today, then one tab by mouth days two and three and four PREDNISONE 45981582530 No Lo nger Active Cherelle Torres RN Active AZITHROMYCIN 250 MG ORAL TABLET 2 po qd x 1 day, then 1 po q d x 4 days AZITHROMYCIN 46338758587 No Longer Active Ridge Bess DO Active PREDNISONE 20 MG ORAL TABLET 2 po qd x 5 days P REDNISONE 90203637718 No Longer Active Perez Mora MD Active PROAIR HFA 108 (90 BASE) MCG/ACT INHALATION AEROSOL SO LUTION 2 puffs four times a day as needed ALBUTEROL SULFATE 13006676148 No Long er Active Becky FUENTES Active ASPIRIN 81 MG ORAL TABLET 1 po qd ASPIRIN 97636750518 Active Carlton Hu MD Active PREDNISONE 20 MG ORAL TABLET 1 tab twice daily for 3 d ay, then one daily for three days PREDNISONE 92601091076 No Longer Active Carlton Hu MD Active AUGMENTIN 875-125 MG ORAL TABLET 1 po BID x 10 days 20 16/03/22 AMOXICILLIN-POT CLAVULANATE 62313115703 No Longer Active Elise Garcia APRN Active TERBINAFINE HCL 250 MG ORAL TABLET 1 qDay for nail fungus 7 TERBINAFINE HCL 05882812293 No Longer Active Carlton Hu MD A ctive AMOXICILLIN 500 MG ORAL CAPSULE 1 cap by mouth three times a day AMOXICILLIN 14187733657 No Longer Active Carlton Hu MD Active ELMIRON 100 MG ORAL CAPSULE 2 tablets in the am and 1 tablet at hs PENTOSAN POLYSULFATE SODIUM 57447396810 No Longer Active Robert Hu MD Active MUCINEX D 60-600 MG ORAL TABLET EXTENDED RELEASE 12 HOUR 1 t ab po q am PSEUDOEPHEDRINE-GUAIFENESIN 20179983324 No Longer Act nael Carlton Hu MD Active MUCINEX DM MAXIMUM STRENGTH 60-1200 MG ORAL TABLET EXT ENDED RELEASE 12 HOUR 1 tab po q am DEXTROMETHORPHAN-GUAIFENESIN 52407794512 No Longer Active Carlton Hu MD Active TUSSIONEX PENNKINETIC ER 10-8 MG/5ML ORAL SUSPENSION E XTENDED RELEASE 5ml po q12hr PRN Cough HYDROCOD POLST-CHLORPHEN POLST 5 8175492723 No Longer Active Carlton Hu MD Active POTASSIUM CHLORIDE ER 20 MEQ ORAL TABLET EXTENDED RELE ASE Take 1 by mouth 4 times daily for 7 days POTASSIUM CHLORIDE 66791358281 No Longer Active Carlton Hu MD Active ZITHROMAX 250 MG ORAL TABLET 2 po today, then 1 po q days 2-5 14/09/04 AZITHROMYCIN 89163953920 No Longer Active Elise Garcia APRN Active TUSSIONEX PENNKINETIC ER 10-8 MG/5ML ORAL SUSPENSION E XTENDED RELEASE 5 ml twice a day as needed for cough HYDROCOD POLST-CHLORPH EN POLST 54125881214 No Longer Active Elise Arell [employer] WRAPPING MACHINE TENDER Active MONTELUKAST SODIUM 10 MG ORAL TABLET 1 po daily for Allergy MONTELUKAST SODIUM 30261009341 Active Carlton Hu MD Ac tive TUSSIONEX PENNKINETIC ER 10-8 MG/5ML ORAL SUSPENSION E XTENDED RELEASE 5ml po q12hr PRN Cough HYDROCOD POLST-CHLORPHEN POLST 5 4443594431 No Longer Active Hugo Restrepo MD Active LYRICA 100 MG ORAL CAPSULE Take 1 tab po BID for fibromyalgia 20 11/08/21 PREGABALIN 28099741311 No Longer Active Elise Garcia APRN A ctive PREDNISONE 20 MG ORAL TABLET 2 tabs daily for 3 days, 1 tab daily for 3 days, 1/2 tab daily for 2 days PREDNISONE 65737577753 No Longer Active Jillina Frakerriel [employer] WRAPPING MACHINE TENDER Active TUSSIONEX PENNKINETIC ER 10-8 MG/5ML ORAL SUSPENSION E XTENDED RELEASE 5 mL PO q 12 hrs PRN cough HYDROCOD POLST-CHLORPHEN POLST 403522 25442 No Longer Active Jillina Frazell [employer] WRAPPING MACHINE TENDER Active FLUTICASONE PROPIONATE 50 MCG/ACT NASAL SUSPENSION 2 s prays each nostril daily until bottle is empty FLUTICASONE PROPIONATE 221446902 99 No Longer Active Jillina Frazell [employer] WRAPPING MACHINE TENDER Active ASMANEX 60 METERED DOSES 220 MCG/INH INHALATION AEROSO L POWDER BREATH ACTIVATED 1 puff bid with rinse after MOMETASONE FUROATE 4652026 4102 No Longer Active Jillina Cesarl [employer] WRAPPING MACHINE TENDER Active ZITHROMAX Z-REYNA 250 MG ORAL TABLET 2 today, then 1 daily for 4 d ays AZITHROMYCIN 21470496908 No Longer Active Elise Garcia [employer]BAC[employer] WRAPPING MACHINE TENDER Active TUSSIONEX PENNKINETIC ER 10-8 MG/5ML ORAL SUSPENSION E XTENDED RELEASE 5ml po q12hr PRN Cough HYDROCOD POLST-CHLORPHEN POLST 5 0800770182 No Longer Active Elise Garcia APRN Active PREDNISONE 20 MG ORAL TABLET 2 tabs daily for 3 days, 1 tab daily for 3 days, 1/2 tab daily for 2 days PREDNISONE 55599101037 No Longer Active Jillina Frazell [employer] WRAPPING MACHINE TENDER Active AMOXICILLIN 500 MG ORAL CAPSULE 2 po BID x 10 days 201 09/29/08 AMOXICILLIN 45147694250 No Longer Active Jillina Frazell [employer] WRAPPING MACHINE TENDER Act nael SINGULAIR 10 MG ORAL TABLET 1 po qday for allergies 20 16/10/12 MONTELUKAST SODIUM 92622488803 No Longer Active Carlton Hu MD Active LEVAQUIN 500 MG ORAL TABLET 1 tablet by mouth daily 20 13/09/24 LEVOFLOXACIN 62824117926 No Longer Active Carlton Hu MD Acti ve FLUTICASONE PROPIONATE 50 MCG/ACT NASAL SUSPENSION 2 s prays each nostril daily for 2 weeks, then 1 spray each nostril daily. FLUTICASONE PROPIONATE 17029346885 Active David Lopes APRN Active ZITHROMAX 250 MG ORAL TABLET 2 po today, then 1 po q days 2-5 20 13/08/10 AZITHROMYCIN 77687286145 No Longer Active Elise Garcia APRN Active CEFDINIR 300 MG ORAL CAPSULE 1 po BID x 10 days CEFDINIR 18034432429 No Longer Active Carlton Hu MD Active ZOCOR 40 MG ORAL TABLET 1 tab by mouth daily SI MVASTATIN 05493443038 No Longer Active Carlton Hu MD Active CYCLOBENZAPRINE HCL 10 MG ORAL TABLET 1 tablet by mouth BID prn had pain CYCLOBENZAPRINE HCL 58848188980 No Longer Active Jayden Hu MD Active LEVOFLOXACIN 500 MG ORAL TABLET 1 tab PO daily x 10 days LEVOFLOXACIN 99535378370 No Longer Active Carlton Hu MD Acti ve PREDNISONE 20 MG ORAL TABLET 3 tab PO qd x 2d, 2 tab P O qd x 2d, 1 tab PO qd x 2d, 1/2 tab PO qd x 2d PREDNISONE 82113723329 No Lo nger Active Carlton Hu MD Active FLUTICASONE PROPIONATE 50 MCG/ACT NASAL SUSPENSION 1 t o 2 sprays each nostril daily FLUTICASONE PROPIONATE 10337217811 No Longer Ac matthew HERNANDEZ Active CHERATUSSIN AC 100-10 MG/5ML ORAL SYRUP 1 tsp by mouth every 4 hours as needed for cough GUAIFENESIN-CODEINE 71132048907 No Longe r Active Blaine HERNANDEZ Active PROMETHAZINE-CODEINE 6.25-10 MG/5ML ORAL SYRUP 1 tsp b y mouth every 6 hours if needed for cough PROMETHAZINE-CODEINE 89024752781 No Longer Active Blaine HERNANDEZ Active CHERATUSSIN AC 100-10 MG/5ML ORAL SYRUP 1 tsp by mouth every 4 hours as needed for cough GUAIFENESIN-CODEINE 95093754765 No Longe r Active Blaine HERNANDEZ Active ZITHROMAX Z-REYNA 250 MG ORAL TABLET 2 today, then 1 daily for 4 d ays AZITHROMYCIN 73570647430 No Longer Active Columba Raida Act nael ZITHROMAX 250 MG ORAL TABLET 2 po today, then 1 po q days 2-5 20 14/03/21 AZITHROMYCIN 23511295039 No Longer Active Carlton Hu MD Active ZITHROMAX Z-REYNA 250 MG ORAL TABLET 2 today, then 1 daily for 4 d ays AZITHROMYCIN 97930042695 No Longer Active Columba Raida Act nael AUGMENTIN 875-125 MG ORAL TABLET 1 po BID x 10 days 13/01/20 AMOXICILLIN-POT CLAVULANATE 57659099399 No Longer Active Diya De Guzman APRN Active ZITHROMAX 250 MG ORAL TABLET 2 po today, then 1 po q days 2-5 20 12/08/14 AZITHROMYCIN 77242899775 No Longer Active Carlton Hu MD Active PREMARIN 0.625 MG ORAL TABLET TAKE 1 TAB BY MOUTH DAILY ESTROGENS CONJUGATED 65382223555 No Longer Active Ridge Bess DO A ctive CYMBALTA 30 MG ORAL CAPSULE DELAYED RELEASE PARTICLES 1 cap by mouth daily DULOXETINE HCL 47695184248 No Longer Active Ridge tam DO Active AMOXICILLIN 500 MG ORAL CAPSULE 1 tab by mouth 3 times daily x 10 days AMOXICILLIN 88602768461 No Longer Active Carlton bustamante MD Active AMOXICILLIN 500 MG ORAL CAPSULE 1 tab by mouth 3 times daily x 10 days AMOXICILLIN 50646647677 No Longer Active Carlton bustamante MD Active PROMETHAZINE-CODEINE 6.25-10 MG/5ML ORAL SYRUP 1 tsp b y mouth every 8 hours prn cough PROMETHAZINE-CODEINE 27776060104 No Longer Acti ve Carlton Hu MD Active MEDROL 4 MG ORAL TABLET THERAPY PACK 6 pills x 1 day, then 5 pills x 1 day then 4 pills x 1 day, then 3 pills x 1 day, then 2 pills x 1 day, then 1 pill x 1 day, then stop METHYLPREDNISOLONE 17360734492 No Long er Active Perez Mora MD Active AZITHROMYCIN 250 MG ORAL TABLET 2 po qd x 1 day, then 1 po q d x 4 days AZITHROMYCIN 61722027289 No Longer Active Perez Ambriz MD Active SYMBICORT 160-4.5 MCG/ACT INHALATION AEROSOL 2 puffs bid wit h rinse after BUDESONIDE-FORMOTEROL FUMARATE 39966052846 N o Longer Active Perez Mora MD Active LYRICA 75 MG ORAL CAPSULE TAKE 1 CAPSULE BY MOUTH TWICE DAILY PREGABALIN 54120028367 No Longer Active Carlton Hu MD Acti ve TOPAMAX 25 MG ORAL TABLET 1 qHS x 1 week, then 1 BID x 1 week, then 1 qAM and 2 qHS x 1 week, then 2 BID (migraine prevention) T OPIRAMATE 37853600194 No Longer Active Jerica FUENTES Active TOPAMAX 50 MG ORAL TABLET take 1 tab po BID for migraines. 07/02 TOPIRAMATE 87440264312 No Longer Active Jerica FUENTES Active TRIAMCINOLONE ACETONIDE 0.1 % EXTERNAL CREAM apply three roger es daily prn rash TRIAMCINOLONE ACETONIDE 06671398945 No Longer Active Carlton Hu MD Active CHERATUSSIN AC 100-10 MG/5ML ORAL SYRUP 5ml po q6hr PRN Cough 20 13/04/14 GUAIFENESIN-CODEINE 95848497651 No Longer Active Carlton Hu MD Active MEDROL 4 MG ORAL TABLET THERAPY PACK 6 tabs on day 1, 5 tabs on day 2, 4 tabs on day 3, 3 tabs on day 4, 2 tabs on day 5, 1 tab on day 6 2013 METHYLPREDNISOLONE 34446056376 No Longer Active Perez Mora MD Active AZITHROMYCIN 250 MG ORAL TABLET 2 po qd x 1 day, then 1 po q d x 4 days AZITHROMYCIN 21187113682 No Longer Active Perez Ambriz MD Active PROPRANOLOL HCL 60 MG ORAL TABLET 1 PO Q D PROPRANOLOL HCL 87888339765 No Longer Active Perez Mora MD Activ e CHERATUSSIN AC 100-10 MG/5ML ORAL SYRUP take one tsp po Q 6h ours prn cough GUAIFENESIN-CODEINE 74420139724 No Longer Active Zia Mora MD Active AUGMENTIN 875-125 MG ORAL TABLET 1 tab by mouth twice daily with food AMOXICILLIN-POT CLAVULANATE 60108566583 No Longer Act nael Perez Mora MD Active CHERATUSSIN AC 100-10 MG/5ML ORAL SYRUP 1 tsp by mouth every 4 hours as needed for cough GUAIFENESIN-CODEINE 16381003564 No Longe r Active Hugo Restrepo MD Active ACETAMINOPHEN-CODEINE #3 300-30 MG ORAL TABLET 1 PO Q 4-6 HRS HI N PAIN ACETAMINOPHEN-CODEINE 82372385088 No Longer Active Hugo Restrepo MD Active LEVAQUIN 500 MG ORAL TABLET take one po QD LEVO FLOXACIN 86976666524 No Longer Active Griffin HERNANDEZ Active PREDNISONE 20 MG ORAL TABLET Take 3 tabs daily for 3 d ays, 2 tabs daily for 3 days, 1 tab daily for 3 days, 1/2 tab daily for 3 days 11/07 PREDNISONE 41391669639 No Longer Active Carlton Hu MD Acti ve AVELOX 400 MG ORAL TABLET 1 tab by mouth daily MOXIFLOXACIN HCL 27028349134 No Longer Active Carlton Hu MD Active CHERATUSSIN AC 100-10 MG/5ML ORAL SYRUP 1 tsp by mouth every 4 hours as needed for cough GUAIFENESIN-CODEINE 60375353725 No Longe r Active Hugo Restrepo MD Active AVELOX 400 MG ORAL TABLET 1 tab by mouth daily MOXIFLOXACIN HCL 58107090698 No Longer Active Marcy De La Rosa MD PhD Active TERBINAFINE HCL 250 MG ORAL TABLET 1 qDay T ERBINAFINE HCL 74554005979 No Longer Active Marcy De La Rosa MD PhD Active CHERATUSSIN AC 100-10 MG/5ML ORAL SYRUP 1 tsp by mouth every 4 hours as needed for cough GUAIFENESIN-CODEINE 91309871303 No Longe r Active Marcy De La Rosa MD PhD Active AVELOX 400 MG ORAL TABLET 1 tab by mouth daily MOXIFLOXACIN HCL 55540067143 No Longer Active Marcy De La Rosa MD PhD Active HYDROCODONE-ACETAMINOPHEN 5-325 MG ORAL TABLET 1 po q 6hr PRN co ugh HYDROCODONE-ACETAMINOPHEN 52002541771 No Longer Active Marcy De La Rosa MD PhD Active PREDNISONE 20 MG ORAL TABLET 2 tabs daily for 3 days, 1 tab daily for 3 days, 1/2 tab daily for 2 days PREDNISONE 06594745709 No Longer Active Carlton Hu MD Active CEFDINIR 300 MG ORAL CAPSULE by mouth twice a day 2011 CEFDINIR 49519691982 No Longer Active Carlton Hu MD Acti ve ACETAMINOPHEN-CODEINE #3 300-30 MG ORAL TABLET 1 tablet po q 4-6 hrs prn pain ACETAMINOPHEN-CODEINE 55592953109 No Longer Active Ridge Bess DO Active ZITHROMAX 250 MG ORAL TABLET 2 po today, then 1 po q days 2-5 20 03/07/07 AZITHROMYCIN 06814500772 No Longer Active Carlton Hu MD Active CHERATUSSIN AC 100-10 MG/5ML ORAL SYRUP take 1 tsp po q4-6 h ours prn cough GUAIFENESIN-CODEINE 83128627061 No Longer Active Jayden Hu MD Active ACETAMINOPHEN-CODEINE #3 300-30 MG ORAL TABLET 1 PO Q 4-6 HR PRN PAIN ACETAMINOPHEN-CODEINE 09868728121 No Longer Active Da raimundo Hu MD Active LORTAB 7.5-500 MG/15ML ORAL ELIXIR 7.5 ml po q 4 hour prn cough HYDROCODONE-ACETAMINOPHEN 15319909957 No Longer Active Carlton Hu MD Active PREDNISONE 20 MG ORAL TABLET 1 po bid 3 days, then 1 po q day 3 days PREDNISONE 62518353235 No Longer Active Carlton Hu MD Active CEFDINIR 300 MG ORAL CAPSULE by mouth twice a day 2011 CEFDINIR 16185848254 No Longer Active Carlton Hu MD Acti ve CEFDINIR 300 MG ORAL CAPSULE by mouth twice a day 2010 CEFDINIR 32735270620 No Longer Active Carlton Hu MD Acti ve CEFDINIR 300 MG ORAL CAPSULE by mouth twice a day 2010 CEFDINIR 05247737852 No Longer Active Carlton Hu MD Acti ve TESSALON PERLES 100 MG ORAL CAPSULE 1 tablet by mouth 3 times daily as needed for cough BENZONATATE 28586571322 No Longer Active Carlton Hu MD Active CEFDINIR 300 MG ORAL CAPSULE by mouth twice a day 2010 CEFDINIR 29691115073 No Longer Active Carlton Hu MD Acti ve ZITHROMAX Z-REYNA 250 MG ORAL TABLET 2 today, then 1 daily for 4 d ays AZITHROMYCIN 48796321836 No Longer Active Hugo Restrepo MD Active TESSALON PERLES 100 MG ORAL CAPSULE 1 tablet by mouth 3 times daily as needed for cough TESSALON PERLES 100 MG ORAL CAPSULE 59549 7 BENZONATATE Inactive PREDNISONE 20 MG ORAL TABLET 1 po bid 3 days, then 1 po q day 3 days PREDNISONE 20 MG ORAL TABLET 117757 PREDNISONE [place] ctive LORTAB 7.5-500 MG/15ML ORAL ELIXIR 7.5 ml po q 4 hour prn cough LORTAB 7.5-500 MG/15ML ORAL ELIXIR HYDROCODONE-A CETAMINOPHEN Inactive ACETAMINOPHEN-CODEINE #3 300-30 MG ORAL TABLET 1 PO Q 4-6 HR PRN PAIN ACETAMINOPHEN-CODEINE #3 300-30 MG ORAL TABLET 9 65858 ACETAMINOPHEN-CODEINE Inactive CHERATUSSIN AC 100-10 MG/5ML ORAL SYRUP take 1 tsp po q4-6 h ours prn cough CHERATUSSIN AC 100-10 MG/5ML ORAL SYRUP 954368 GUAIFENESIN-CODEINE Inactive ACETAMINOPHEN-CODEINE #3 300-30 MG ORAL TABLET 1 tablet po q 4-6 hrs prn pain ACETAMINOPHEN-CODEINE #3 300-30 MG ORAL TABLET 265183 ACETAMINOPHEN-CODEINE Inactive HYDROCODONE-ACETAMINOPHEN 5-325 MG ORAL TABLET 1 po q 6hr PRN co ugh HYDROCODONE-ACETAMINOPHEN 5-325 MG ORAL TABLET 687028 HYDROCODONE-ACETAMINOPHEN Inactive AVELOX 400 MG ORAL TABLET 1 tab by mouth daily AVELOX 400 MG ORAL TABLET MOXIFLOXACIN HCL Inactive CHERATUSSIN AC 100-10 MG/5ML ORAL SYRUP 1 tsp by mouth every 4 hours as needed for cough CHERATUSSIN AC 100-10 MG/5ML ORAL SYRUP 9 19081 GUAIFENESIN-CODEINE Inactive TERBINAFINE HCL 250 MG ORAL TABLET 1 qDay 07/08 TERBINAFINE HCL 250 MG ORAL TABLET 497833 TERBINAFINE HCL Inactive CHERATUSSIN AC 100-10 MG/5ML ORAL SYRUP 1 tsp by mouth every 4 hours as needed for cough CHERATUSSIN AC 100-10 MG/5ML ORAL SYRUP 9 52487 GUAIFENESIN-CODEINE Inactive ACETAMINOPHEN-CODEINE #3 300-30 MG ORAL TABLET 1 PO Q 4-6 HRS HI N PAIN ACETAMINOPHEN-CODEINE #3 300-30 MG ORAL TABLET 036397 ACETAMINOPHEN-CODEINE Inactive CHERATUSSIN AC 100-10 MG/5ML ORAL SYRUP 1 tsp by mouth every 4 hours as needed for cough CHERATUSSIN AC 100-10 MG/5ML ORAL SYRUP 9 02587 GUAIFENESIN-CODEINE Inactive AUGMENTIN 875-125 MG ORAL TABLET 1 tab by mouth twice daily with food AUGMENTIN 875-125 MG ORAL TABLET AMOXICIL MADELINE-POT CLAVULANATE Inactive CHERATUSSIN AC 100-10 MG/5ML ORAL SYRUP take one tsp po Q 6h ours prn cough CHERATUSSIN AC 100-10 MG/5ML ORAL SYRUP 189902 GUAIFENESIN-CODEINE Inactive PROPRANOLOL HCL 60 MG ORAL TABLET 1 PO Q D PROPRANOLOL HCL 60 MG ORAL TABLET 873657 PROPRANOLOL HCL Inactive TOPAMAX 50 MG ORAL TABLET take 1 tab po BID for migraines. 07/02 TOPAMAX 50 MG ORAL TABLET 275484 TOPIRAMATE Inacti ve TOPAMAX 25 MG ORAL TABLET 1 qHS x 1 week, then 1 BID x 1 week, then 1 qAM and 2 qHS x 1 week, then 2 BID (migraine prevention) TOPAMAX 25 MG ORAL TABLET 019452 TOPIRAMATE Inactive LYRICA 75 MG ORAL CAPSULE TAKE 1 CAPSULE BY MOUTH TWICE DAILY LYRICA 75 MG ORAL CAPSULE 924190 PREGABALIN Inactive SYMBICORT 160-4.5 MCG/ACT INHALATION AEROSOL 2 puffs bid wit h rinse after SYMBICORT 160-4.5 MCG/ACT INHALATION AEROSOL 124 5197 BUDESONIDE-FORMOTEROL FUMARATE Inactive PROMETHAZINE-CODEINE 6.25-10 MG/5ML ORAL SYRUP 1 tsp b y mouth every 8 hours prn cough PROMETHAZINE-CODEINE 6.25-10 MG/ 5ML ORAL SYRUP 076940 PROMETHAZINE-CODEINE Inactive CYMBALTA 30 MG ORAL CAPSULE DELAYED RELEASE PARTICLES 1 cap by mouth daily CYMBALTA 30 MG ORAL CAPSULE DELAYED RELE ASE PARTICLES 985335 DULOXETINE HCL Inactive PREMARIN 0.625 MG ORAL TABLET TAKE 1 TAB BY MOUTH DAILY PREMARIN 0.625 MG ORAL TABLET ESTROGENS CONJUGATED Inactive CHERATUSSIN AC 100-10 MG/5ML ORAL SYRUP 1 tsp by mouth every 4 hours as needed for cough CHERATUSSIN AC 100-10 MG/5ML ORAL SYRUP 9 91455 GUAIFENESIN-CODEINE Inactive PROMETHAZINE-CODEINE 6.25-10 MG/5ML ORAL SYRUP 1 tsp b y mouth every 6 hours if needed for cough PROMETHAZINE-CODEINE 6.25-10 MG/5ML ORAL SYRUP 546760 PROMETHAZINE-CODEINE Inactive CHERATUSSIN AC 100-10 MG/5ML ORAL SYRUP 1 tsp by mouth every 4 hours as needed for cough CHERATUSSIN AC 100-10 MG/5ML ORAL SYRUP 9 93440 GUAIFENESIN-CODEINE Inactive FLUTICASONE PROPIONATE 50 MCG/ACT NASAL SUSPENSION 1 t o 2 sprays each nostril daily FLUTICASONE PROPIONATE 50 MCG/AC T NASAL SUSPENSION 3675587 FLUTICASONE PROPIONATE Inactive PREDNISONE 20 MG ORAL TABLET 3 tab PO qd x 2d, 2 tab P O qd x 2d, 1 tab PO qd x 2d, 1/2 tab PO qd x 2d PREDNISONE 20 MG ORAL TAB LET 055820 PREDNISONE Inactive LEVOFLOXACIN 500 MG ORAL TABLET 1 tab PO daily x 10 days LEVOFLOXACIN 500 MG ORAL TABLET 780110 LEVOFLOXACIN Inactive CYCLOBENZAPRINE HCL 10 MG ORAL TABLET 1 tablet by mouth BID prn had pain CYCLOBENZAPRINE HCL 10 MG ORAL TABLET 434985 CYCLOBENZAPRINE HCL Inactive ZOCOR 40 MG ORAL TABLET 1 tab by mouth daily 4 ZOCOR 40 MG ORAL TABLET 757833 SIMVASTATIN Inactive TUSSIONEX PENNKINETIC ER 10-8 MG/5ML [...] FLUTICASONE PROPIO EFE 50 MCG/ACT NASAL SUSPENSION [id number] FLUTICASONE PROPIONATE Inactive TUSSIONEX PENNKINETIC ER 10-8 MG/5ML ORAL SUSPENSION E XTENDED RELEASE 5 mL PO q 12 hrs PRN cough TUSSIONEX PENNKINETI C ER 10-8 MG/5ML ORAL SUSPENSION EXTENDED RELEASE HYDROCOD POLST-CHLORPHEN POLST I nactive LYRICA 100 MG ORAL CAPSULE Take 1 tab po BID for fibromyalgia 20 11/08/21 LYRICA 100 MG ORAL CAPSULE 623126 PREGABALIN Inact nael TUSSIONEX PENNKINETIC ER 10-8 [...] three days PREDNISONE 20 MG ORAL TABLET [id number] PREDNIS ONE Inactive PROAIR HFA 108 (90 BASE) MCG/ACT INHALATION AEROSOL SO LUTION 2 puffs four times a day as needed PROAIR HFA 108 (90 B ASE) MCG/ACT INHALATION AEROSOL SOLUTION ALBUTEROL SULFATE Inactive PREDNISONE 20 MG ORAL TABLET two tabs by mouth today, then one tab by mouth days two and three and four PREDNISONE 20 MG ORAL TAB LET [id number] PREDNISONE Inactive TUSSIONEX PENNKINETIC ER 10-8 MG/5ML [...] bid 04/20 TOPAMAX 100 MG ORAL TABLET 868698 TOPIRAMATE Inactive CYMBALTA 30 MG ORAL CAPSULE DELAYED RELEASE PARTICLES 1 cap by mouth daily for depression CYMBALTA 30 MG ORAL CAPSULE DELAYED RELEASE PARTICLES 190164 DULOXETINE HCL Inactive TYLENOL WITH CODEINE #3 300-30 MG ORAL TABLET 1-2 po q6hr PRN Pa in TYLENOL WITH CODEINE #3 300-30 MG ORAL TABLET 114111 ACETAMINOPHEN-CODEINE Inactive TYLENOL WITH CODEINE #3 300-30 MG ORAL TABLET TYLENOL WITH CODEINE #3 300-30 MG ORAL TABLET 215402 ACETAMINOPHEN-CODEINE Inactive TRIAMCINOLONE ACETONIDE 0.1 % EXTERNAL CREAM apply bid spari ngly to rash TRIAMCINOLONE ACETONIDE 0.1 % EXTERNAL CREAM 101 4314 TRIAMCINOLONE ACETONIDE Inactive GUAIFENESIN-CODEINE 100-10 MG/5ML ORAL SYRUP 1 tsp PO q6h PRN co ugh GUAIFENESIN-CODEINE 100-10 MG/5ML ORAL SYRUP 914087 GUAIFENESIN-CODEINE Inactive ATORVASTATIN CALCIUM 10 MG ORAL TABLET 1 pill by mouth night ly, for cholesterol ATORVASTATIN CALCIUM 10 MG ORAL TABLET 517680 ATORVASTATIN CALCIUM Inactive PAXIL 40 MG ORAL TABLET take 1 tab po qday for depression 0 PAXIL 40 MG ORAL TABLET 8670348 PAROXETINE HCL Inactive ZITHROMAX Z-REYNA 250 MG ORAL TABLET 2 today, then 1 daily for 4 d ays ZITHROMAX Z-REYNA 250 MG ORAL TABLET 540301 AZITHROMYCIN Inactive CEFDINIR 300 MG ORAL CAPSULE [...] 2-08 1703/07/07 ZITHROMAX 250 MG ORAL TABLET 374864 AZITHROMYCIN [place] ct[facility] CEFDINIR 300 MG ORAL CAPSULE by mouth twice a day 2011 CEFDINIR 300 MG ORAL CAPSULE 20020704 CEFDINIR Inactive PREDNISONE 20 MG ORAL TABLET 2 tabs daily for 3 days, 1 tab daily for 3 days, 1/2 tab daily for 2 days PREDNISONE 20 MG ORAL T ABLET 291088 PREDNISONE Inactive AVELOX 400 MG ORAL TABLET [...] days 11/07 PREDNISONE 20 MG ORAL TABLET 009873 PREDNISONE Inactive LEVAQUIN 500 MG ORAL TABLET take one po QD LEVAQUIN 500 MG ORAL TABLET 224735 LEVOFLOXACIN Inactive AZITHROMYCIN 250 MG ORAL TABLET 2 po qd x 1 day, then 1 po q d x 4 days AZITHROMYCIN 250 MG ORAL TABLET 349987 AZITHROMY GIOVANNI Inactive MEDROL 4 MG ORAL TABLET THERAPY PACK 6 tabs on day 1, 5 tabs on day 2, 4 tabs on day 3, 3 tabs on day 4, 2 tabs on day 5, 1 tab on day 6 2013 MEDROL 4 MG ORAL TABLET THERAPY PACK 731926 METHYLPREDNISOLONE [place] ct[facility] CHERATUSSIN AC 100-10 MG/5ML ORAL SYRUP 5ml po q6hr PRN Cough 20 13/04/14 CHERATUSSIN AC 100-10 MG/5ML ORAL SYRUP 885002 GUAIFENE SIN-CODEINE Inactive TRIAMCINOLONE ACETONIDE 0.1 % EXTERNAL CREAM apply three roger es daily prn rash TRIAMCINOLONE ACETONIDE 0.1 % EXTERNAL CREAM 101 4314 TRIAMCINOLONE ACETONIDE Inactive AZITHROMYCIN 250 MG ORAL TABLET 2 po qd x 1 day, then 1 po q d x 4 days AZITHROMYCIN 250 MG ORAL TABLET 215729 AZITHROMY GIOVANNI Inactive MEDROL 4 MG ORAL TABLET THERAPY PACK 6 pills x 1 day, then 5 pills x 1 day then 4 pills x 1 day, then 3 pills x 1 day, then 2 pills x 1 day, then 1 pill x 1 day, then stop MEDROL 4 MG ORAL TABLET THERAPY PACK 109064 METHYLPREDNISOLONE Inactive AMOXICILLIN 500 MG ORAL CAPSULE 1 tab by mouth 3 times daily x 10 days AMOXICILLIN 500 MG ORAL CAPSULE 628919 AMOXICILL IN Inactive AMOXICILLIN 500 MG ORAL CAPSULE 1 tab by mouth 3 times daily x 10 days AMOXICILLIN 500 MG ORAL CAPSULE 903830 AMOXICILL IN Inactive ZITHROMAX 250 MG ORAL TABLET 2 po today, then 1 po q days 2-5 20 12/08/14 ZITHROMAX 250 MG ORAL TABLET 950270 AZITHROMYCIN [facility] AUGMENTIN 875-125 MG ORAL TABLET 1 po BID x 10 days 20 13/01/20 AUGMENTIN 875-125 MG ORAL TABLET AMOXICILLIN-POT CLAVULANATE Inactive ZITHROMAX Z-REYNA 250 MG ORAL TABLET 2 today, then 1 daily for 4 d ays ZITHROMAX Z-REYNA 250 MG ORAL TABLET 547207 AZITHROMYCIN Inactive ZITHROMAX 250 MG ORAL TABLET 2 po today, then 1 po q days 2-5 20 14/03/21 ZITHROMAX 250 MG ORAL TABLET 146057 AZITHROMYCIN [place] ctive ZITHROMAX Z-REYNA 250 MG ORAL TABLET 2 today, then 1 daily for 4 d ays ZITHROMAX Z-REYNA 250 MG ORAL TABLET 325673 AZITHROMYCIN Inactive CEFDINIR 300 MG ORAL CAPSULE 1 po BID x 10 days 06/21 CEFDINIR 300 MG ORAL CAPSULE 238654 CEFDINIR Inactive ZITHROMAX 250 MG ORAL TABLET 2 po today, then 1 po q days 2-5 20 13/08/10 ZITHROMAX 250 MG ORAL TABLET 391530 AZITHROMYCIN [place] [facility] LEVAQUIN 500 MG ORAL TABLET 1 tablet by mouth daily 13/09/24 LEVAQUIN 500 MG ORAL TABLET 501523 LEVOFLOXACIN Inactive SINGULAIR 10 MG ORAL TABLET 1 po qday for allergies 20 14/01/12 SINGULAIR 10 MG ORAL TABLET 988233 MONTELUKAST SODIUM Inactive AMOXICILLIN 500 MG ORAL CAPSULE 2 po BID x 10 days 201 09/29/08 AMOXICILLIN 500 MG ORAL CAPSULE 053573 AMOXICILLIN Inactive PREDNISONE 20 MG ORAL TABLET 2 tabs daily for 3 days, 1 tab daily for 3 days, 1/2 tab daily for 2 days PREDNISONE 20 MG ORAL T ABLET 810231 PREDNISONE Inactive ZITHROMAX Z-REYNA 250 MG ORAL TABLET 2 today, then 1 daily for 4 d ays ZITHROMAX Z-REYNA 250 MG ORAL TABLET 786210 AZITHROMYCIN Inactive PREDNISONE 20 MG ORAL TABLET 2 tabs daily for 3 days, 1 tab daily for 3 days, 1/2 tab daily for 2 days PREDNISONE 20 MG ORAL T ABLET 694842 PREDNISONE Inactive ZITHROMAX 250 MG ORAL TABLET 2 po today, then 1 po q days 2-5 20 14/09/04 ZITHROMAX 250 MG ORAL TABLET 900311 AZITHROMYCIN [place] ctive AMOXICILLIN 500 MG ORAL CAPSULE 1 cap by mouth three times a day AMOXICILLIN 500 MG ORAL CAPSULE 969351 AMOXICILLIN Inactive TERBINAFINE HCL 250 MG ORAL TABLET 1 qDay for nail fungus 7 TERBINAFINE HCL 250 MG ORAL TABLET 334748 TERBINAFINE HCL Inact nael AUGMENTIN 875-125 MG ORAL TABLET 1 po BID x 10 days 16/03/22 AUGMENTIN 875-125 MG ORAL TABLET AMOXICILLIN-POT CLAVULANATE Inactive PREDNISONE 20 MG ORAL TABLET 2 po qd x 5 days PREDNISONE 20 MG ORAL TABLET 422666 PREDNISONE Inactive AZITHROMYCIN 250 MG ORAL TABLET 2 po qd x 1 day, then 1 po q d x 4 days AZITHROMYCIN 250 MG ORAL TABLET 125397 AZITHROMY GIOVANNI Inactive PREDNISONE 50 MG ORAL TABLET Take 50 mg dialy for 6 day s 7 PREDNISONE 50 MG ORAL TABLET 753846 PREDNISONE Inactive AUGMENTIN 875-125 MG ORAL TABLET 1 po BID x 10 days 18/04/16 AUGMENTIN 875-125 MG ORAL TABLET AMOXICILLIN-POT CLAVULANATE Inactive DOXYCYCLINE HYCLATE 100 MG ORAL CAPSULE 1 cap by mouth twice latasha ly DOXYCYCLINE HYCLATE 100 MG ORAL CAPSULE 0022655 DOXYCYCL INE HYCLATE Inactive PREDNISONE 20 MG ORAL TABLET Take 2 tabs day 1 and 2 and 1 t ab days 3 and 4 PREDNISONE 20 MG ORAL TABLET 034189 PREDNISONE Inactive AMOXICILLIN 500 MG ORAL CAPSULE 1 cap by mouth twice daily 10/21 AMOXICILLIN 500 MG ORAL CAPSULE 210647 AMOXICILLIN Inactive TRIAMCINOLONE ACETONIDE 0.1 % EXTERNAL OINTMENT Apply to affected areas TID PRN Rash/Itching for up 2 weeks TRIAMCINOLON E ACETONIDE 0.1 % EXTERNAL OINTMENT 2834574 TRIAMCINOLONE ACETONIDE Inactive ACYCLOVIR 800 MG ORAL TABLET 1 po 5 times daily x 7 days ACYCLOVIR 800 MG ORAL TABLET 790995 ACYCLOVIR Inactive AMOXICILLIN-POT CLAVULANATE 875-125 MG ORAL TABLET 1 pill by mouth twice daily AMOXICILLIN-POT CLAVULANATE 875-125 MG ORAL TABL ET 840485 AMOXICILLIN-POT CLAVULANATE Inactive Vital Signs Date Name [...] Panel - Chemistry sodium, serum 137 mmol/L 647-616 9178/10/08 carbon dioxide, venous blood 29.9 mmol/L 21.0-32 [...] 0.50 mg/dL 0.00-1.00 cholesterol, serum 324 mg/dL 555-314 5123/10/08 triglyceride, serum, fasting 130 mg/dL 30-200 HDL [...] 50-136 Encounters Code Encounter Date Provider Facility CPT-11183 [id number] Vst-Est Level III 11:01:08 CDT Ra joe Lopes [facility] CPT-20852 Level 3 Est. Patient 14:41:20 OPHTHALMIC MEDICAL TECHNOLOGIST David lion [facility] CPT-63233 [id number] Vst-Est Level IV 09:06:31 C ESAU Hu MD [facility] CPT-88876 Level 3 Est. Patient 14:16:41 CDT David Tin dle [facility] CPT-61177 Level 3 Est. Patient 13:57:55 CDT David Tin dle [facility] CPT-81463 Level 3 Est. Patient 16:08:07 CDT David Tin dle [facility] CPT-75643 Level 3 Est. Patient 16:53:54 CDT May haas MD -[id number] Vst-Est Level IV 08:41:[address] Carlton Hu MD [facility] CPT-55749 Level 3 Est. Patient 09:46:49 OPHTHALMIC MEDICAL TECHNOLOGIST David Muñiz dle [facility] CPT-81820 [id number] Vst-Est Level III 11:12:16 CDT Yanet Bess DO [facility] CPT-77272 Level 3 Est. Patient 11:34:49 OPHTHALMIC MEDICAL TECHNOLOGIST Perez Mora MD [facility] CPT-40017 Level 4 Est. Patient 09:51:32 OPHTHALMIC MEDICAL TECHNOLOGIST Carlton rich MD [facility] CPT-88429 Level 3 Est. Patient 10:26:00 OPHTHALMIC MEDICAL TECHNOLOGIST Elise Are [facility] CPT-99746 Level 3 Est. Patient 13:35:41 OPHTHALMIC MEDICAL TECHNOLOGIST Carlton rich MD [facility] CPT-98470 Level 3 Est. Patient 10:03:52 OPHTHALMIC MEDICAL TECHNOLOGIST Carlton rich MD [facility] CPT-77388 Level 3 Est. Patient 12:17:50 CDT Hugo Restrepo MD [facility] CPT-43749 Level 3 Est. Patient 13:42:38 CDT Elise Are ll [facility] CPT-76277 Level 3 Est. Patient 13:23:51 CDT Diya cobian [facility] CPT-31065 Level 3 Est. Patient 14:22:19 OPHTHALMIC MEDICAL TECHNOLOGIST Diya cobian [facility] CPT-63178 Level 3 Est. Patient 10:11:46 CDT Carlton rich MD [facility] CPT-21344 Level 3 Est. Patient 17:29:43 CDT Elise Are [facility] CPT-55974 Level 3 Est. Patient 11:58:06 CDT Elise Are ll [facility] CPT-49835 Level 4 Est. Patient 14:36:51 CDT Carlton rich MD -[id number] Level 3 Est. Patient 18:16:00 OPHTHALMIC MEDICAL TECHNOLOGIST Blaine Freeman [facility]-94333 Level 3 Est. Patient 09:45:49 OPHTHALMIC MEDICAL TECHNOLOGIST Carlton rich MD [facility] CPT-41102 Level 3 Est. Patient 13:19:20 CDT Carlton rich MD [facility] CPT-39788 Level 3 Est. Patient 13:06:43 CDT Ridge tam DO [facility] CPT-88388 Level 3 Est. Patient 10:03:07 CDT Perez Mora MD [facility] CPT-14333 Level 3 Est. Patient 19:50:35 OPHTHALMIC MEDICAL TECHNOLOGIST Carlton rich MD [facility] CPT-83916 Level 4 Est. Patient 18:05:01 OPHTHALMIC MEDICAL TECHNOLOGIST Carlton rich MD [facility] CPT-60909 Level 3 Est. Patient 10:45:55 OPHTHALMIC MEDICAL TECHNOLOGIST Hugo Restrepo MD [facility]-64185 Level 3 Est. Patient 14:12:49 CDT Griffin lincoln [facility] CPT-35494 Level 3 Est. Patient 17:37:24 CDT Carlton rich MD [facility] CPT-94301 Level 3 Est. Patient 16:51:54 CDT Carlton rich MD [facility] CPT-19237 Level 3 Est. Patient 12:18:11 CDT Hugo Restrepo MD [facility] CPT-24740 Level 3 Est. Patient 11:30:25 CDT Marcy crisostomo MD PhD [facility] CPT-67675 Level 3 Est. Patient 12:00:47 OPHTHALMIC MEDICAL TECHNOLOGIST Carlton rich MD [facility] CPT-64392 Level 3 Est. Patient 16:31:06 OPHTHALMIC MEDICAL TECHNOLOGIST Carlton rich MD [facility] CPT-13248 Level 3 Est. Patient 16:23:24 OPHTHALMIC MEDICAL TECHNOLOGIST Ridge tam [facility] CPT-29830 Level 3 Est. Patient 12:34:12 CDT Carlton rich MD [facility] CPT-99980 Level 2 Est. Patient 15:43:33 CDT Robi armstrong MD [facility] CPT-34633 Level 4 Est. Patient 14:04:44 CDT Carlton rich MD [facility] CPT-95845 Level 3 Est. Patient 05:47:59 CDT Ridge tam [facility] CPT-99073 Level 3 Est. Patient 13:12:53 OPHTHALMIC MEDICAL TECHNOLOGIST Carlton rich MD [facility] CPT-50087 Level 3 Est. Patient 14:26:53 CDT Hugo Restrepo MD [facility] Procedures Code Procedure Name Date Entry Date Standard Desc ription [id number] (4274F 2P) Patient Reason Influenza immu nization not administered 14:13:39 OPHTHALMIC MEDICAL TECHNOLOGIST CPT-79606 Venipuncture Draw Fee 15:53:34 CDT CPT-000 Give Appropriate Flu Vaccine 14:14:31 CDT 2 CPT-J1040 Depo Medrol 80 mg (Methyl Prednisolone A cetate) 10:42:44 CDT CPT-J1100 Decadron 8mg (Dexamethasone) 10:42:44 CDT 2 CPT-J0696 Rocephin 1gm Inj Solr 14:32:13 CDT CPT-J1020 Depo Medrol 60 mg (Methyl Prednisolone A cetate) 14:32:13 CDT CPT-J1100 Decadron 6mg (Dexamethasone) 14:32:13 CDT 2 CPT-56874 Hip bilat min 2V w AP pelvis 13:16:20 CDT 2 CPT-20692 Pelvis only 13:07:33 CDT CPT-33095 Spec Collection and Handling Fee 11:25:12 C DT CPT-38195 Fluzone Quadrivalent Intramuscular Suspe nsion 0.5 ML 14:31:55 CDT CPT-01265 Abx/Therapy Injection 13:28:47 OPHTHALMIC MEDICAL TECHNOLOGIST CPT-J2930 Solu Medrol 125 mg (Methyl Prednisolone Sodium Succinate) 12:00:47 OPHTHALMIC MEDICAL TECHNOLOGIST CPT-55455 Venipuncture Draw Fee 11:33:31 CDT CPT-24933 EKG Trac and Interp 11:21:09 CDT CPT-79360 Chest 2V Frontal and Lat 11:21:09 CDT 12/15 CPT-23403 Venipuncture Draw Fee 08:02:34 CDT CPT-35911 Chest 2V Frontal and Lat 05:47:59 CDT 06/05
--- OUTSIDE RECORDS SUMMARY | 2019-10-08 08:45 | XMS REPORT | Clinical Summary ---
Author Author Caitlin, Juliana Martinez Organization [employer] Address Unknown Phone Unavailable Allergies, Adverse Reactions, [...] 35.0-35.9, adult BMI 35-35.9 Refinement 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 GOLD BLOWER Body Mass Index 35.0-35.9, adult BMI 33-33.9 Refinement 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 GOLD BLOWER Body Mass Index 35.0-35.9, adult BMI 34-34.9 Active 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 GOLD BLOWER Body Mass Index 35.0-35.9, adult Upper respiratory [...] throat 462 Active 201 12/06/23 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 GOLD BLOWER Acute pharyngitis Shingles 053.9 Active 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 GOLD BLOWER Herpes zoster without mention of complication Allergic [...] SINUSITIS, ACUTE ICD-461.9 Inactive Hugo dominguez MD Sinusitis ICD-473.9 Inactive Hugo Restrepo MD Bronchitis-Acute ICD-466.0 Inactive Hugo dominguez MD URI - acute ICD-465.9 Inactive Hugo Restrepo MD Pharyngitis acute ICD-462 Inactive Hugo gore MD Pelvic pain, acute ICD-789.09 Inactive Hugo Restrepo MD Bronchitis ICD-490 Inactive Hugo Restrepo MD 201 10/02/29 URI ICD-465.9 Inactive Ridge Bess DO Rhinitis, acute ICD-460 Inactive Hugo Ochoa MD Sinusitis ICD-473.9 Inactive Hugo Restrepo MD Medication List Medication Instructions Start Date Stop Date Generic Name NDC Status Provider Patient Instruction AMOXICILLIN-POT CLAVULANATE 875-125 MG ORAL TABLET 1 pill by mouth twice daily AMOXICILLIN-POT CLAVULANATE 43449662625 Active 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 GOLD BLOWER Active PAXIL 40 MG ORAL TABLET take 1 tab po qday for depression 0 PAROXETINE HCL 43122782773 No Longer Active 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 GOLD BLOWER Acti ve ATORVASTATIN CALCIUM 10 MG ORAL TABLET 1 pill by mouth night ly, for cholesterol ATORVASTATIN CALCIUM 66761291631 No Longer Active Ran dy Marianne GOLD BLOWER Active GUAIFENESIN-CODEINE 100-10 MG/5ML ORAL SYRUP 1 tsp PO q6h PRN co ugh GUAIFENESIN-CODEINE 35035959596 No Longer Active 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 GOLD BLOWER Active TOPIRAMATE 100 MG ORAL TABLET Take 1 tablet by mouth twice daily 19/04/21 TOPIRAMATE 52797778299 Active Carlton Hu MD Active PAROXETINE HCL 40 MG TABS TAKE 1 TABLET BY MOUTH ONCE DAILY FOR DEPRESSION PAROXETINE HCL 64176840861 Active Carlton Hu MD Active HYDROCHLOROTHIAZIDE 25 MG ORAL TABLET Take 1 tablet by mouth once daily HYDROCHLOROTHIAZIDE 38713040691 Active Carlton Hu MD Active AMOXICILLIN-POT CLAVULANATE 875-125 MG ORAL TABLET 1 pill by mouth twice daily AMOXICILLIN-POT CLAVULANATE 16405248056 No Longer Act nael Lopes APRN Active DULOXETINE HCL 60 MG ORAL CAPSULE DELAYED RELEASE PART ICLES TAKE 1 CAPSULE BY MOUTH ONCE DAILY FOR PAIN AND MOOD DULOXETINE HCL 002 72851837 Active Carlton Hu MD Active TRAMADOL HCL 50 MG TABS TAKE 1 TABLET BY MOUTH THREE TIMES DAILY WITH EXTRA STRENGTH TYLENOL TRAMADOL HCL 25296865813 Active Carlton Hu MD Active ALPRAZOLAM 0.5 MG TABS TAKE 1 TABLET BY MOUTH ONCE DAILY NEEDED ALPRAZOLAM 18398644217 Active Carlton Hu MD Active GABAPENTIN 100 MG ORAL CAPSULE TAKE 1 CAPSULE BY MOUTH TWICE DAILY FOR FIBROMYALGIA GABAPENTIN 69170917265 Active Carlton Hu MD Active ELMIRON 100MG CAP TAKE 2 CAPSULES BY MOUTH IN THE MORNING AND 1 CAPSULE AT BEDTIME PENTOSAN POLYSULFATE SODIUM 90046636614 Active May Vivar MD Active TRIAMCINOLONE ACETONIDE 0.1 % EXTERNAL CREAM apply bid spari ngly to rash TRIAMCINOLONE ACETONIDE 90285688828 No Longer Active Carlton Hu MD Active TYLENOL WITH CODEINE #3 300-30 MG ORAL TABLET ACETAMINOPHEN-CODEINE 95933049721 No Longer Active Carlton Hu MD Active TYLENOL WITH CODEINE #3 300-30 MG ORAL TABLET 1-2 po q6hr PRN Pa in ACETAMINOPHEN-CODEINE 72380031081 No Longer Active David HERNANDEZ RN Active ACYCLOVIR 800 MG ORAL TABLET 1 po 5 times daily x 7 days ACYCLOVIR 64786104743 No Longer Active 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 GOLD BLOWER Active TOPAMAX 100 MG ORAL TABLET 1 by mouth twice daily TOPIRAMATE 21340931591 Active Carlton Hu MD Active TRIAMCINOLONE ACETONIDE 0.1 % EXTERNAL OINTMENT Apply to affected areas TID PRN Rash/Itching for up 2 weeks TRIAMCINOLONE ACETON KAYLA 73811819388 No Longer Active David Marianen GOLD BLOWER Active AMOXICILLIN 500 MG ORAL CAPSULE 1 cap by mouth twice daily 10/21 AMOXICILLIN 45116242400 No Longer Active 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 GOLD BLOWER Active CYMBALTA 30 MG ORAL CAPSULE DELAYED RELEASE PARTICLES 1 cap by mouth daily for depression DULOXETINE HCL 17844021383 No Longer Active Carlton Hu MD Active TUSSIONEX PENNKINETIC ER 10-8 MG/5ML ORAL SUSPENSION E XTENDED RELEASE 5ml po q12hr PRN Cough HYDROCOD POLST-CHLORPHEN POLST 16228157276 Active 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 GOLD BLOWER Active PREDNISONE 20 MG ORAL TABLET Take 2 tabs day 1 and 2 and 1 t ab days 3 and 4 PREDNISONE 25977844048 No Longer Active 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 GOLD BLOWER Active DOXYCYCLINE HYCLATE 100 MG ORAL CAPSULE 1 cap by mouth twice latasha ly DOXYCYCLINE HYCLATE 32216434019 No Longer Active 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 GOLD BLOWER Active TOPAMAX 100 MG ORAL TABLET Take 1 tablet po bid TOPIRAMATE 29055743755 No Longer Active 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 GOLD BLOWER Active TUSSIONEX PENNKINETIC ER 10-8 MG/5ML ORAL SUSPENSION E XTENDED RELEASE 5ml po q12hr PRN Cough HYDROCOD POLST-CHLORPHEN POLST 5 9783447015 No Longer Active 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 GOLD BLOWER Active AUGMENTIN 875-125 MG ORAL TABLET 1 po BID x 10 days 18/04/16 AMOXICILLIN-POT CLAVULANATE 37013385232 No Longer Active 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 GOLD BLOWER Active PREDNISONE 50 MG ORAL TABLET Take 50 mg dialy for 6 day s 7 PREDNISONE 14517531704 No Longer Active 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 RICEN Active TUSSIONEX PENNKINETIC ER 10-8 MG/5ML ORAL SUSPENSION E XTENDED RELEASE 5ml po q12hr PRN Cough HYDROCOD POLST-CHLORPHEN POLST 5 5685917674 No Longer Active Cherelle Torres RN Active PREDNISONE 20 MG ORAL TABLET two tabs by mouth today, then one tab by mouth days two and three and four PREDNISONE 89424904959 No Lo nger Active Cherelle Torres RN Active AZITHROMYCIN 250 MG ORAL TABLET 2 po qd x 1 day, then 1 po q d x 4 days AZITHROMYCIN 30695241568 No Longer Active Ridge Bess DO Active PREDNISONE 20 MG ORAL TABLET 2 po qd x 5 days P REDNISONE 28009995881 No Longer Active Perez Mora MD Active PROAIR HFA 108 (90 BASE) MCG/ACT INHALATION AEROSOL SO LUTION 2 puffs four times a day as needed ALBUTEROL SULFATE 17035103330 No Long er Active Becky FUENTES Active ASPIRIN 81 MG ORAL TABLET 1 po qd ASPIRIN 19608030066 Active Carlton Hu MD Active PREDNISONE 20 MG ORAL TABLET 1 tab twice daily for 3 d ay, then one daily for three days PREDNISONE 38646424842 No Longer Active Carlton Hu MD Active AUGMENTIN 875-125 MG ORAL TABLET 1 po BID x 10 days 20 16/03/22 AMOXICILLIN-POT CLAVULANATE 01762062975 No Longer Active Elise Garcia APRN Active TERBINAFINE HCL 250 MG ORAL TABLET 1 qDay for nail fungus 7 TERBINAFINE HCL 00699543032 No Longer Active Carlton Hu MD A ctive AMOXICILLIN 500 MG ORAL CAPSULE 1 cap by mouth three times a day AMOXICILLIN 27856953675 No Longer Active Carlton Hu MD Active ELMIRON 100 MG ORAL CAPSULE 2 tablets in the am and 1 tablet at hs PENTOSAN POLYSULFATE SODIUM 56293395379 No Longer Active Robert Hu MD Active MUCINEX D 60-600 MG ORAL TABLET EXTENDED RELEASE 12 HOUR 1 t ab po q am PSEUDOEPHEDRINE-GUAIFENESIN 68998059497 No Longer Act nael Carlton Hu MD Active MUCINEX DM MAXIMUM STRENGTH 60-1200 MG ORAL TABLET EXT ENDED RELEASE 12 HOUR 1 tab po q am DEXTROMETHORPHAN-GUAIFENESIN 95479742149 No Longer Active Carlton Hu MD Active TUSSIONEX PENNKINETIC ER 10-8 MG/5ML ORAL SUSPENSION E XTENDED RELEASE 5ml po q12hr PRN Cough HYDROCOD POLST-CHLORPHEN POLST 5 4523056808 No Longer Active Carlton Hu MD Active POTASSIUM CHLORIDE ER 20 MEQ ORAL TABLET EXTENDED RELE ASE Take 1 by mouth 4 times daily for 7 days POTASSIUM CHLORIDE 87720533574 No Longer Active Carlton Hu MD Active ZITHROMAX 250 MG ORAL TABLET 2 po today, then 1 po q days 2-5 14/09/04 AZITHROMYCIN 92018420487 No Longer Active Elise Garcia APRN Active TUSSIONEX PENNKINETIC ER 10-8 MG/5ML ORAL SUSPENSION E XTENDED RELEASE 5 ml twice a day as needed for cough HYDROCOD POLST-CHLORPH EN POLST 11876172353 No Longer Active Elise Arell GOLD BLOWER Active MONTELUKAST SODIUM 10 MG ORAL TABLET 1 po daily for Allergy MONTELUKAST SODIUM 62266381951 Active Carlton Hu MD Ac tive TUSSIONEX PENNKINETIC ER 10-8 MG/5ML ORAL SUSPENSION E XTENDED RELEASE 5ml po q12hr PRN Cough HYDROCOD POLST-CHLORPHEN POLST 5 0287668752 No Longer Active Hugo Restrepo MD Active LYRICA 100 MG ORAL CAPSULE Take 1 tab po BID for fibromyalgia 20 11/08/21 PREGABALIN 96125904873 No Longer Active Elise Garcia APRN A ctive PREDNISONE 20 MG ORAL TABLET 2 tabs daily for 3 days, 1 tab daily for 3 days, 1/2 tab daily for 2 days PREDNISONE 86136389368 No Longer Active Jillina Frakerriel GOLD BLOWER Active TUSSIONEX PENNKINETIC ER 10-8 MG/5ML ORAL SUSPENSION E XTENDED RELEASE 5 mL PO q 12 hrs PRN cough HYDROCOD POLST-CHLORPHEN POLST 000691 17698 No Longer Active Jillina Frazell GOLD BLOWER Active FLUTICASONE PROPIONATE 50 MCG/ACT NASAL SUSPENSION 2 s prays each nostril daily until bottle is empty FLUTICASONE PROPIONATE 071855728 99 No Longer Active Jillina Frazell GOLD BLOWER Active ASMANEX 60 METERED DOSES 220 MCG/INH INHALATION AEROSO L POWDER BREATH ACTIVATED 1 puff bid with rinse after MOMETASONE FUROATE 0387548 4102 No Longer Active Jillina Cesarl GOLD BLOWER Active ZITHROMAX Z-REYNA 250 MG ORAL TABLET 2 today, then 1 daily for 4 d ays AZITHROMYCIN 14059894684 No Longer Active Elise Garcia GOLD BLOWER Active TUSSIONEX PENNKINETIC ER 10-8 MG/5ML ORAL SUSPENSION E XTENDED RELEASE 5ml po q12hr PRN Cough HYDROCOD POLST-CHLORPHEN POLST 5 2702495749 No Longer Active Elise Garcia APRN Active PREDNISONE 20 MG ORAL TABLET 2 tabs daily for 3 days, 1 tab daily for 3 days, 1/2 tab daily for 2 days PREDNISONE 81877408651 No Longer Active Jillina Frazell GOLD BLOWER Active AMOXICILLIN 500 MG ORAL CAPSULE 2 po BID x 10 days 201 09/29/08 AMOXICILLIN 65662785473 No Longer Active Jillina Frazell GOLD BLOWER Act nael SINGULAIR 10 MG ORAL TABLET 1 po qday for allergies 20 16/10/12 MONTELUKAST SODIUM 78575420086 No Longer Active Carlton Hu MD Active LEVAQUIN 500 MG ORAL TABLET 1 tablet by mouth daily 20 13/09/24 LEVOFLOXACIN 07501236276 No Longer Active Carlton Hu MD Acti ve FLUTICASONE PROPIONATE 50 MCG/ACT NASAL SUSPENSION 2 s prays each nostril daily for 2 weeks, then 1 spray each nostril daily. FLUTICASONE PROPIONATE 53293595180 Active David Loeps APRN Active ZITHROMAX 250 MG ORAL TABLET 2 po today, then 1 po q days 2-5 20 13/08/10 AZITHROMYCIN 30144514611 No Longer Active Elise Garcia APRN Active CEFDINIR 300 MG ORAL CAPSULE 1 po BID x 10 days CEFDINIR 56469372270 No Longer Active Carlton Hu MD Active ZOCOR 40 MG ORAL TABLET 1 tab by mouth daily SI MVASTATIN 93472389069 No Longer Active Carlton Hu MD Active CYCLOBENZAPRINE HCL 10 MG ORAL TABLET 1 tablet by mouth BID prn had pain CYCLOBENZAPRINE HCL 30290183023 No Longer Active Jayden Hu MD Active LEVOFLOXACIN 500 MG ORAL TABLET 1 tab PO daily x 10 days LEVOFLOXACIN 07139485163 No Longer Active Carlton Hu MD Acti ve PREDNISONE 20 MG ORAL TABLET 3 tab PO qd x 2d, 2 tab P O qd x 2d, 1 tab PO qd x 2d, 1/2 tab PO qd x 2d PREDNISONE 38366862474 No Lo nger Active Carlton Hu MD Active FLUTICASONE PROPIONATE 50 MCG/ACT NASAL SUSPENSION 1 t o 2 sprays each nostril daily FLUTICASONE PROPIONATE 01684461204 No Longer Ac matthew HERNANDEZ Active CHERATUSSIN AC 100-10 MG/5ML ORAL SYRUP 1 tsp by mouth every 4 hours as needed for cough GUAIFENESIN-CODEINE 60233275204 No Longe r Active Blaine HERNANDEZ Active PROMETHAZINE-CODEINE 6.25-10 MG/5ML ORAL SYRUP 1 tsp b y mouth every 6 hours if needed for cough PROMETHAZINE-CODEINE 69820499220 No Longer Active Blaine HERNANDEZ Active CHERATUSSIN AC 100-10 MG/5ML ORAL SYRUP 1 tsp by mouth every 4 hours as needed for cough GUAIFENESIN-CODEINE 66231662981 No Longe r Active Blaine HERNANDEZ Active ZITHROMAX Z-REYNA 250 MG ORAL TABLET 2 today, then 1 daily for 4 d ays AZITHROMYCIN 45783565444 No Longer Active Columba Raida Act nael ZITHROMAX 250 MG ORAL TABLET 2 po today, then 1 po q days 2-5 20 14/03/21 AZITHROMYCIN 84784441665 No Longer Active Carlton Hu MD Active ZITHROMAX Z-REYNA 250 MG ORAL TABLET 2 today, then 1 daily for 4 d ays AZITHROMYCIN 34103791211 No Longer Active Columba Raida Act nael AUGMENTIN 875-125 MG ORAL TABLET 1 po BID x 10 days 13/01/20 AMOXICILLIN-POT CLAVULANATE 71313729878 No Longer Active Diya De Guzman APRN Active ZITHROMAX 250 MG ORAL TABLET 2 po today, then 1 po q days 2-5 20 12/08/14 AZITHROMYCIN 72361395709 No Longer Active Carlton Hu MD Active PREMARIN 0.625 MG ORAL TABLET TAKE 1 TAB BY MOUTH DAILY ESTROGENS CONJUGATED 23282197405 No Longer Active Ridge Bess DO A ctive CYMBALTA 30 MG ORAL CAPSULE DELAYED RELEASE PARTICLES 1 cap by mouth daily DULOXETINE HCL 51468495931 No Longer Active Ridge tam DO Active AMOXICILLIN 500 MG ORAL CAPSULE 1 tab by mouth 3 times daily x 10 days AMOXICILLIN 31238113774 No Longer Active Carlton bustamante MD Active AMOXICILLIN 500 MG ORAL CAPSULE 1 tab by mouth 3 times daily x 10 days AMOXICILLIN 84443044881 No Longer Active Carlton bustamante MD Active PROMETHAZINE-CODEINE 6.25-10 MG/5ML ORAL SYRUP 1 tsp b y mouth every 8 hours prn cough PROMETHAZINE-CODEINE 22085769968 No Longer Acti ve Carlton Hu MD Active MEDROL 4 MG ORAL TABLET THERAPY PACK 6 pills x 1 day, then 5 pills x 1 day then 4 pills x 1 day, then 3 pills x 1 day, then 2 pills x 1 day, then 1 pill x 1 day, then stop METHYLPREDNISOLONE 80761623095 No Long er Active Perez Mora MD Active AZITHROMYCIN 250 MG ORAL TABLET 2 po qd x 1 day, then 1 po q d x 4 days AZITHROMYCIN 94806249002 No Longer Active Perez Ambriz MD Active SYMBICORT 160-4.5 MCG/ACT INHALATION AEROSOL 2 puffs bid wit h rinse after BUDESONIDE-FORMOTEROL FUMARATE 41774801013 N o Longer Active Perez Mora MD Active LYRICA 75 MG ORAL CAPSULE TAKE 1 CAPSULE BY MOUTH TWICE DAILY PREGABALIN 87595649879 No Longer Active Carlton Hu MD Acti ve TOPAMAX 25 MG ORAL TABLET 1 qHS x 1 week, then 1 BID x 1 week, then 1 qAM and 2 qHS x 1 week, then 2 BID (migraine prevention) T OPIRAMATE 43293843062 No Longer Active Jerica FUENTES Active TOPAMAX 50 MG ORAL TABLET take 1 tab po BID for migraines. 07/02 TOPIRAMATE 79309711807 No Longer Active Jerica FUENTES Active TRIAMCINOLONE ACETONIDE 0.1 % EXTERNAL CREAM apply three roger es daily prn rash TRIAMCINOLONE ACETONIDE 84249058490 No Longer Active Carlton Hu MD Active CHERATUSSIN AC 100-10 MG/5ML ORAL SYRUP 5ml po q6hr PRN Cough 20 13/04/14 GUAIFENESIN-CODEINE 57662439076 No Longer Active Carlton Hu MD Active MEDROL 4 MG ORAL TABLET THERAPY PACK 6 tabs on day 1, 5 tabs on day 2, 4 tabs on day 3, 3 tabs on day 4, 2 tabs on day 5, 1 tab on day 6 2013 METHYLPREDNISOLONE 31700769460 No Longer Active Perez Mora MD Active AZITHROMYCIN 250 MG ORAL TABLET 2 po qd x 1 day, then 1 po q d x 4 days AZITHROMYCIN 37364387722 No Longer Active Perez Ambriz MD Active PROPRANOLOL HCL 60 MG ORAL TABLET 1 PO Q D PROPRANOLOL HCL 99242014036 No Longer Active Perez Mora MD Activ e CHERATUSSIN AC 100-10 MG/5ML ORAL SYRUP take one tsp po Q 6h ours prn cough GUAIFENESIN-CODEINE 83043110385 No Longer Active Zia Mora MD Active AUGMENTIN 875-125 MG ORAL TABLET 1 tab by mouth twice daily with food AMOXICILLIN-POT CLAVULANATE 91797944693 No Longer Act nael Perez Mora MD Active CHERATUSSIN AC 100-10 MG/5ML ORAL SYRUP 1 tsp by mouth every 4 hours as needed for cough GUAIFENESIN-CODEINE 82081316279 No Longe r Active Hugo Restrepo MD Active ACETAMINOPHEN-CODEINE #3 300-30 MG ORAL TABLET 1 PO Q 4-6 HRS IL N PAIN ACETAMINOPHEN-CODEINE 90883722239 No Longer Active Hugo Restrepo MD Active LEVAQUIN 500 MG ORAL TABLET take one po QD LEVO FLOXACIN 40369813604 No Longer Active Griffin HERNANDEZ Active PREDNISONE 20 MG ORAL TABLET Take 3 tabs daily for 3 d ays, 2 tabs daily for 3 days, 1 tab daily for 3 days, 1/2 tab daily for 3 days 11/07 PREDNISONE 65652121147 No Longer Active Carlton Hu MD Acti ve AVELOX 400 MG ORAL TABLET 1 tab by mouth daily MOXIFLOXACIN HCL 96373890966 No Longer Active Carlton Hu MD Active CHERATUSSIN AC 100-10 MG/5ML ORAL SYRUP 1 tsp by mouth every 4 hours as needed for cough GUAIFENESIN-CODEINE 05588497540 No Longe r Active Hugo Restrepo MD Active AVELOX 400 MG ORAL TABLET 1 tab by mouth daily MOXIFLOXACIN HCL 15152446948 No Longer Active Marcy De La Rosa MD PhD Active TERBINAFINE HCL 250 MG ORAL TABLET 1 qDay T ERBINAFINE HCL 92504168830 No Longer Active Marcy De La Rosa MD PhD Active CHERATUSSIN AC 100-10 MG/5ML ORAL SYRUP 1 tsp by mouth every 4 hours as needed for cough GUAIFENESIN-CODEINE 76144276819 No Longe r Active Marcy De La Rosa MD PhD Active AVELOX 400 MG ORAL TABLET 1 tab by mouth daily MOXIFLOXACIN HCL 21152904800 No Longer Active Marcy De La Rosa MD PhD Active HYDROCODONE-ACETAMINOPHEN 5-325 MG ORAL TABLET 1 po q 6hr PRN co ugh HYDROCODONE-ACETAMINOPHEN 53149373636 No Longer Active Marcy De La Rosa MD PhD Active PREDNISONE 20 MG ORAL TABLET 2 tabs daily for 3 days, 1 tab daily for 3 days, 1/2 tab daily for 2 days PREDNISONE 13202986867 No Longer Active Carlton Hu MD Active CEFDINIR 300 MG ORAL CAPSULE by mouth twice a day 2011 CEFDINIR 89942760679 No Longer Active Carlton Hu MD Acti ve ACETAMINOPHEN-CODEINE #3 300-30 MG ORAL TABLET 1 tablet po q 4-6 hrs prn pain ACETAMINOPHEN-CODEINE 45338060857 No Longer Active Ridge Bess DO Active ZITHROMAX 250 MG ORAL TABLET 2 po today, then 1 po q days 2-5 20 03/07/07 AZITHROMYCIN 91102111527 No Longer Active Carlton Hu MD Active CHERATUSSIN AC 100-10 MG/5ML ORAL SYRUP take 1 tsp po q4-6 h ours prn cough GUAIFENESIN-CODEINE 77615036049 No Longer Active Jayden Hu MD Active ACETAMINOPHEN-CODEINE #3 300-30 MG ORAL TABLET 1 PO Q 4-6 HR PRN PAIN ACETAMINOPHEN-CODEINE 76312536526 No Longer Active Da raimundo Hu MD Active LORTAB 7.5-500 MG/15ML ORAL ELIXIR 7.5 ml po q 4 hour prn cough HYDROCODONE-ACETAMINOPHEN 66505239165 No Longer Active Carlton Hu MD Active PREDNISONE 20 MG ORAL TABLET 1 po bid 3 days, then 1 po q day 3 days PREDNISONE 21818313401 No Longer Active Carlton Hu MD Active CEFDINIR 300 MG ORAL CAPSULE by mouth twice a day 2011 CEFDINIR 06277376575 No Longer Active Carlton Hu MD Acti ve CEFDINIR 300 MG ORAL CAPSULE by mouth twice a day 2010 CEFDINIR 30550471971 No Longer Active Carlton Hu MD Acti ve CEFDINIR 300 MG ORAL CAPSULE by mouth twice a day 2010 CEFDINIR 47930194458 No Longer Active Carlton Hu MD Acti ve TESSALON PERLES 100 MG ORAL CAPSULE 1 tablet by mouth 3 times daily as needed for cough BENZONATATE 39793360971 No Longer Active Carlton Hu MD Active CEFDINIR 300 MG ORAL CAPSULE by mouth twice a day 2010 CEFDINIR 08892664112 No Longer Active Carlton Hu MD Acti ve ZITHROMAX Z-REYNA 250 MG ORAL TABLET 2 today, then 1 daily for 4 d ays AZITHROMYCIN 90202386272 No Longer Active Hugo Restrepo MD Active TESSALON PERLES 100 MG ORAL CAPSULE 1 tablet by mouth 3 times daily as needed for cough TESSALON PERLES 100 MG ORAL CAPSULE 73835 7 BENZONATATE Inactive PREDNISONE 20 MG ORAL TABLET 1 po bid 3 days, then 1 po q day 3 days PREDNISONE 20 MG ORAL TABLET 338003 PREDNISONE Eugene ctive LORTAB 7.5-500 MG/15ML ORAL ELIXIR 7.5 ml po q 4 hour prn cough LORTAB 7.5-500 MG/15ML ORAL ELIXIR HYDROCODONE-A CETAMINOPHEN Inactive ACETAMINOPHEN-CODEINE #3 300-30 MG ORAL TABLET 1 PO Q 4-6 HR PRN PAIN ACETAMINOPHEN-CODEINE #3 300-30 MG ORAL TABLET 9 02277 ACETAMINOPHEN-CODEINE Inactive CHERATUSSIN AC 100-10 MG/5ML ORAL SYRUP take 1 tsp po q4-6 h ours prn cough CHERATUSSIN AC 100-10 MG/5ML ORAL SYRUP 518468 GUAIFENESIN-CODEINE Inactive ACETAMINOPHEN-CODEINE #3 300-30 MG ORAL TABLET 1 tablet po q 4-6 hrs prn pain ACETAMINOPHEN-CODEINE #3 300-30 MG ORAL TABLET 780758 ACETAMINOPHEN-CODEINE Inactive HYDROCODONE-ACETAMINOPHEN 5-325 MG ORAL TABLET 1 po q 6hr PRN co ugh HYDROCODONE-ACETAMINOPHEN 5-325 MG ORAL TABLET 006741 HYDROCODONE-ACETAMINOPHEN Inactive AVELOX 400 MG ORAL TABLET 1 tab by mouth daily AVELOX 400 MG ORAL TABLET MOXIFLOXACIN HCL Inactive CHERATUSSIN AC 100-10 MG/5ML ORAL SYRUP 1 tsp by mouth every 4 hours as needed for cough CHERATUSSIN AC 100-10 MG/5ML ORAL SYRUP 9 42082 GUAIFENESIN-CODEINE Inactive TERBINAFINE HCL 250 MG ORAL TABLET 1 qDay 07/08 TERBINAFINE HCL 250 MG ORAL TABLET 041781 TERBINAFINE HCL Inactive CHERATUSSIN AC 100-10 MG/5ML ORAL SYRUP 1 tsp by mouth every 4 hours as needed for cough CHERATUSSIN AC 100-10 MG/5ML ORAL SYRUP 9 93935 GUAIFENESIN-CODEINE Inactive ACETAMINOPHEN-CODEINE #3 300-30 MG ORAL TABLET 1 PO Q 4-6 HRS IL N PAIN ACETAMINOPHEN-CODEINE #3 300-30 MG ORAL TABLET 173466 ACETAMINOPHEN-CODEINE Inactive CHERATUSSIN AC 100-10 MG/5ML ORAL SYRUP 1 tsp by mouth every 4 hours as needed for cough CHERATUSSIN AC 100-10 MG/5ML ORAL SYRUP 9 67272 GUAIFENESIN-CODEINE Inactive AUGMENTIN 875-125 MG ORAL TABLET 1 tab by mouth twice daily with food AUGMENTIN 875-125 MG ORAL TABLET AMOXICIL MADELINE-POT CLAVULANATE Inactive CHERATUSSIN AC 100-10 MG/5ML ORAL SYRUP take one tsp po Q 6h ours prn cough CHERATUSSIN AC 100-10 MG/5ML ORAL SYRUP 893884 GUAIFENESIN-CODEINE Inactive PROPRANOLOL HCL 60 MG ORAL TABLET 1 PO Q D PROPRANOLOL HCL 60 MG ORAL TABLET 334347 PROPRANOLOL HCL Inactive TOPAMAX 50 MG ORAL TABLET take 1 tab po BID for migraines. 07/02 TOPAMAX 50 MG ORAL TABLET 753950 TOPIRAMATE Inacti ve TOPAMAX 25 MG ORAL TABLET 1 qHS x 1 week, then 1 BID x 1 week, then 1 qAM and 2 qHS x 1 week, then 2 BID (migraine prevention) TOPAMAX 25 MG ORAL TABLET 843653 TOPIRAMATE Inactive LYRICA 75 MG ORAL CAPSULE TAKE 1 CAPSULE BY MOUTH TWICE DAILY LYRICA 75 MG ORAL CAPSULE 562041 PREGABALIN Inactive SYMBICORT 160-4.5 MCG/ACT INHALATION AEROSOL 2 puffs bid wit h rinse after SYMBICORT 160-4.5 MCG/ACT INHALATION AEROSOL 124 5903 BUDESONIDE-FORMOTEROL FUMARATE Inactive PROMETHAZINE-CODEINE 6.25-10 MG/5ML ORAL SYRUP 1 tsp b y mouth every 8 hours prn cough PROMETHAZINE-CODEINE 6.25-10 MG/ 5ML ORAL SYRUP 613523 PROMETHAZINE-CODEINE Inactive CYMBALTA 30 MG ORAL CAPSULE DELAYED RELEASE PARTICLES 1 cap by mouth daily CYMBALTA 30 MG ORAL CAPSULE DELAYED RELE ASE PARTICLES 521800 DULOXETINE HCL Inactive PREMARIN 0.625 MG ORAL TABLET TAKE 1 TAB BY MOUTH DAILY PREMARIN 0.625 MG ORAL TABLET ESTROGENS CONJUGATED Inactive CHERATUSSIN AC 100-10 MG/5ML ORAL SYRUP 1 tsp by mouth every 4 hours as needed for cough CHERATUSSIN AC 100-10 MG/5ML ORAL SYRUP 9 62944 GUAIFENESIN-CODEINE Inactive PROMETHAZINE-CODEINE 6.25-10 MG/5ML ORAL SYRUP 1 tsp b y mouth every 6 hours if needed for cough PROMETHAZINE-CODEINE 6.25-10 MG/5ML ORAL SYRUP 068798 PROMETHAZINE-CODEINE Inactive CHERATUSSIN AC 100-10 MG/5ML ORAL SYRUP 1 tsp by mouth every 4 hours as needed for cough CHERATUSSIN AC 100-10 MG/5ML ORAL SYRUP 9 32254 GUAIFENESIN-CODEINE Inactive FLUTICASONE PROPIONATE 50 MCG/ACT NASAL SUSPENSION 1 t o 2 sprays each nostril daily FLUTICASONE PROPIONATE 50 MCG/AC T NASAL SUSPENSION 2166100 FLUTICASONE PROPIONATE Inactive PREDNISONE 20 MG ORAL TABLET 3 tab PO qd x 2d, 2 tab P O qd x 2d, 1 tab PO qd x 2d, 1/2 tab PO qd x 2d PREDNISONE 20 MG ORAL TAB LET 661416 PREDNISONE Inactive LEVOFLOXACIN 500 MG ORAL TABLET 1 tab PO daily x 10 days LEVOFLOXACIN 500 MG ORAL TABLET 108446 LEVOFLOXACIN Inactive CYCLOBENZAPRINE HCL 10 MG ORAL TABLET 1 tablet by mouth BID prn had pain CYCLOBENZAPRINE HCL 10 MG ORAL TABLET 341501 CYCLOBENZAPRINE HCL Inactive ZOCOR 40 MG ORAL TABLET 1 tab by mouth daily 4 ZOCOR 40 MG ORAL TABLET 630723 SIMVASTATIN Inactive TUSSIONEX PENNKINETIC ER 10-8 MG/5ML [...] FLUTICASONE PROPIO EFE 50 MCG/ACT NASAL SUSPENSION [id number] FLUTICASONE PROPIONATE Inactive TUSSIONEX PENNKINETIC ER 10-8 MG/5ML ORAL SUSPENSION E XTENDED RELEASE 5 mL PO q 12 hrs PRN cough TUSSIONEX PENNKINETI C ER 10-8 MG/5ML ORAL SUSPENSION EXTENDED RELEASE HYDROCOD POLST-CHLORPHEN POLST I nactive LYRICA 100 MG ORAL CAPSULE Take 1 tab po BID for fibromyalgia 20 11/08/21 LYRICA 100 MG ORAL CAPSULE [id number] PREGABALIN Inact nael TUSSIONEX PENNKINETIC ER 10-8 [...] three days PREDNISONE 20 MG ORAL TABLET [id number] PREDNIS ONE Inactive PROAIR HFA 108 (90 BASE) MCG/ACT INHALATION AEROSOL SO LUTION 2 puffs four times a day as needed PROAIR HFA 108 (90 B ASE) MCG/ACT INHALATION AEROSOL SOLUTION ALBUTEROL SULFATE Inactive PREDNISONE 20 MG ORAL TABLET two tabs by mouth today, then one tab by mouth days two and three and four PREDNISONE 20 MG ORAL TAB LET 375437 PREDNISONE Inactive TUSSIONEX PENNKINETIC ER 10-8 MG/5ML [...] bid 04/20 TOPAMAX 100 MG ORAL TABLET 572661 TOPIRAMATE Inactive CYMBALTA 30 MG ORAL CAPSULE DELAYED RELEASE PARTICLES 1 cap by mouth daily for depression CYMBALTA 30 MG ORAL CAPSULE DELAYED RELEASE PARTICLES 259258 DULOXETINE HCL Inactive TYLENOL WITH CODEINE #3 300-30 MG ORAL TABLET 1-2 po q6hr PRN Pa in TYLENOL WITH CODEINE #3 300-30 MG ORAL TABLET 497030 ACETAMINOPHEN-CODEINE Inactive TYLENOL WITH CODEINE #3 300-30 MG ORAL TABLET TYLENOL WITH CODEINE #3 300-30 MG ORAL TABLET 692263 ACETAMINOPHEN-CODEINE Inactive TRIAMCINOLONE ACETONIDE 0.1 % EXTERNAL CREAM apply bid spari ngly to rash TRIAMCINOLONE ACETONIDE 0.1 % EXTERNAL CREAM 101 4314 TRIAMCINOLONE ACETONIDE Inactive GUAIFENESIN-CODEINE 100-10 MG/5ML ORAL SYRUP 1 tsp PO q6h PRN co ugh GUAIFENESIN-CODEINE 100-10 MG/5ML ORAL SYRUP 638133 GUAIFENESIN-CODEINE Inactive ATORVASTATIN CALCIUM 10 MG ORAL TABLET 1 pill by mouth night ly, for cholesterol ATORVASTATIN CALCIUM 10 MG ORAL TABLET 732716 ATORVASTATIN CALCIUM Inactive PAXIL 40 MG ORAL TABLET take 1 tab po qday for depression 0 PAXIL 40 MG ORAL TABLET 4950466 PAROXETINE HCL Inactive ZITHROMAX Z-REYNA 250 MG ORAL TABLET 2 today, then 1 daily for 4 d ays ZITHROMAX Z-REYNA 250 MG ORAL TABLET 110924 AZITHROMYCIN Inactive CEFDINIR 300 MG ORAL CAPSULE [...] 2-08 1703/07/07 ZITHROMAX 250 MG ORAL TABLET 846618 AZITHROMYCIN Greer ctive CEFDINIR 300 MG ORAL CAPSULE by mouth twice a day 2011 CEFDINIR 300 MG ORAL CAPSULE 20020704 CEFDINIR Inactive PREDNISONE 20 MG ORAL TABLET 2 tabs daily for 3 days, 1 tab daily for 3 days, 1/2 tab daily for 2 days PREDNISONE 20 MG ORAL T ABLET 886498 PREDNISONE Inactive AVELOX 400 MG ORAL TABLET [...] days 11/07 PREDNISONE 20 MG ORAL TABLET 120784 PREDNISONE Inactive LEVAQUIN 500 MG ORAL TABLET take one po QD LEVAQUIN 500 MG ORAL TABLET 942276 LEVOFLOXACIN Inactive AZITHROMYCIN 250 MG ORAL TABLET 2 po qd x 1 day, then 1 po q d x 4 days AZITHROMYCIN 250 MG ORAL TABLET 417350 AZITHROMY GIOVANNI Inactive MEDROL 4 MG ORAL TABLET THERAPY PACK 6 tabs on day 1, 5 tabs on day 2, 4 tabs on day 3, 3 tabs on day 4, 2 tabs on day 5, 1 tab on day 6 2013 MEDROL 4 MG ORAL TABLET THERAPY PACK 094954 METHYLPREDNISOLONE [facility] ctive CHERATUSSIN AC 100-10 MG/5ML ORAL SYRUP 5ml po q6hr PRN Cough 20 13/04/14 CHERATUSSIN AC 100-10 MG/5ML ORAL SYRUP 043716 GUAIFENE SIN-CODEINE Inactive TRIAMCINOLONE ACETONIDE 0.1 % EXTERNAL CREAM apply three roger es daily prn rash TRIAMCINOLONE ACETONIDE 0.1 % EXTERNAL CREAM 101 4314 TRIAMCINOLONE ACETONIDE Inactive AZITHROMYCIN 250 MG ORAL TABLET 2 po qd x 1 day, then 1 po q d x 4 days AZITHROMYCIN 250 MG ORAL TABLET 740790 AZITHROMY GIOVANNI Inactive MEDROL 4 MG ORAL TABLET THERAPY PACK 6 pills x 1 day, then 5 pills x 1 day then 4 pills x 1 day, then 3 pills x 1 day, then 2 pills x 1 day, then 1 pill x 1 day, then stop MEDROL 4 MG ORAL TABLET THERAPY PACK 861107 METHYLPREDNISOLONE Inactive AMOXICILLIN 500 MG ORAL CAPSULE 1 tab by mouth 3 times daily x 10 days AMOXICILLIN 500 MG ORAL CAPSULE 243821 AMOXICILL IN Inactive AMOXICILLIN 500 MG ORAL CAPSULE 1 tab by mouth 3 times daily x 10 days AMOXICILLIN 500 MG ORAL CAPSULE 733605 AMOXICILL IN Inactive ZITHROMAX 250 MG ORAL TABLET 2 po today, then 1 po q days 2-5 20 12/08/14 ZITHROMAX 250 MG ORAL TABLET 647389 AZITHROMYCIN [facility] ctive AUGMENTIN 875-125 MG ORAL TABLET 1 po BID x 10 days 20 13/01/20 AUGMENTIN 875-125 MG ORAL TABLET AMOXICILLIN-POT CLAVULANATE Inactive ZITHROMAX Z-REYNA 250 MG ORAL TABLET 2 today, then 1 daily for 4 d ays ZITHROMAX Z-REYNA 250 MG ORAL TABLET 700983 AZITHROMYCIN Inactive ZITHROMAX 250 MG ORAL TABLET 2 po today, then 1 po q days 2-5 20 14/03/21 ZITHROMAX 250 MG ORAL TABLET 335342 AZITHROMYCIN [place] ctive ZITHROMAX Z-REYNA 250 MG ORAL TABLET 2 today, then 1 daily for 4 d ays ZITHROMAX Z-REYNA 250 MG ORAL TABLET 385663 AZITHROMYCIN Inactive CEFDINIR 300 MG ORAL CAPSULE 1 po BID x 10 days 06/21 CEFDINIR 300 MG ORAL CAPSULE 353981 CEFDINIR Inactive ZITHROMAX 250 MG ORAL TABLET 2 po today, then 1 po q days 2-5 20 13/08/10 ZITHROMAX 250 MG ORAL TABLET 180452 AZITHROMYCIN [place]er ctive LEVAQUIN 500 MG ORAL TABLET 1 tablet by mouth daily 13/09/24 LEVAQUIN 500 MG ORAL TABLET 170254 LEVOFLOXACIN Inactive SINGULAIR 10 MG ORAL TABLET 1 po qday for allergies 20 14/01/12 SINGULAIR 10 MG ORAL TABLET 819134 MONTELUKAST SODIUM Inactive AMOXICILLIN 500 MG ORAL CAPSULE 2 po BID x 10 days 201 09/29/08 AMOXICILLIN 500 MG ORAL CAPSULE 411885 AMOXICILLIN Inactive PREDNISONE 20 MG ORAL TABLET 2 tabs daily for 3 days, 1 tab daily for 3 days, 1/2 tab daily for 2 days PREDNISONE 20 MG ORAL T ABLET 481236 PREDNISONE Inactive ZITHROMAX Z-REYNA 250 MG ORAL TABLET 2 today, then 1 daily for 4 d ays ZITHROMAX Z-REYNA 250 MG ORAL TABLET 007035 AZITHROMYCIN Inactive PREDNISONE 20 MG ORAL TABLET 2 tabs daily for 3 days, 1 tab daily for 3 days, 1/2 tab daily for 2 days PREDNISONE 20 MG ORAL T ABLET 428248 PREDNISONE Inactive ZITHROMAX 250 MG ORAL TABLET 2 po today, then 1 po q days 2-5 20 14/09/04 ZITHROMAX 250 MG ORAL TABLET 798870 AZITHROMYCIN [place] ctive AMOXICILLIN 500 MG ORAL CAPSULE 1 cap by mouth three times a day AMOXICILLIN 500 MG ORAL CAPSULE 879875 AMOXICILLIN Inactive TERBINAFINE HCL 250 MG ORAL TABLET 1 qDay for nail fungus 7 TERBINAFINE HCL 250 MG ORAL TABLET 999098 TERBINAFINE HCL Inact nael AUGMENTIN 875-125 MG ORAL TABLET 1 po BID x 10 days 16/03/22 AUGMENTIN 875-125 MG ORAL TABLET AMOXICILLIN-POT CLAVULANATE Inactive PREDNISONE 20 MG ORAL TABLET 2 po qd x 5 days PREDNISONE 20 MG ORAL TABLET 416641 PREDNISONE Inactive AZITHROMYCIN 250 MG ORAL TABLET 2 po qd x 1 day, then 1 po q d x 4 days AZITHROMYCIN 250 MG ORAL TABLET 092266 AZITHROMY GIOVANNI Inactive PREDNISONE 50 MG ORAL TABLET Take 50 mg dialy for 6 day s 7 PREDNISONE 50 MG ORAL TABLET 699837 PREDNISONE Inactive AUGMENTIN 875-125 MG ORAL TABLET 1 po BID x 10 days 18/04/16 AUGMENTIN 875-125 MG ORAL TABLET AMOXICILLIN-POT CLAVULANATE Inactive DOXYCYCLINE HYCLATE 100 MG ORAL CAPSULE 1 cap by mouth twice latasha ly DOXYCYCLINE HYCLATE 100 MG ORAL CAPSULE 9245795 DOXYCYCL INE HYCLATE Inactive PREDNISONE 20 MG ORAL TABLET Take 2 tabs day 1 and 2 and 1 t ab days 3 and 4 PREDNISONE 20 MG ORAL TABLET 903972 PREDNISONE Inactive AMOXICILLIN 500 MG ORAL CAPSULE 1 cap by mouth twice daily 10/21 AMOXICILLIN 500 MG ORAL CAPSULE 976870 AMOXICILLIN Inactive TRIAMCINOLONE ACETONIDE 0.1 % EXTERNAL OINTMENT Apply to affected areas TID PRN Rash/Itching for up 2 weeks TRIAMCINOLON E ACETONIDE 0.1 % EXTERNAL OINTMENT 2685090 TRIAMCINOLONE ACETONIDE Inactive ACYCLOVIR 800 MG ORAL TABLET 1 po 5 times daily x 7 days ACYCLOVIR 800 MG ORAL TABLET 253470 ACYCLOVIR Inactive AMOXICILLIN-POT CLAVULANATE 875-125 MG ORAL TABLET 1 pill by mouth twice daily AMOXICILLIN-POT CLAVULANATE 875-125 MG ORAL TABL ET 992716 AMOXICILLIN-POT CLAVULANATE Inactive Vital Signs Date Name [...] Metabolic Panel, CBC, Lipid Panel - Chemistry calcium, serum 10.1 mg/dL 8.5-10.1 bilirubin, serum, total 0.50 mg/dL 0.00-1.00 cholesterol, serum 324 mg/dL 733-630 6700/10/08 triglyceride, serum, fasting 130 mg/dL 30-200 HDL cholesterol, serum 61 mg/dL 32-60 LDL cholesterol, serum 237 mg/dL 0-130 blood glucose 105 mg/dL 65-95 chloride, serum 98 mmol/L 98-107 potassium, serum 3.6 mmol/L 3.5-5.2 carbon dioxide, venous blood 29.9 mmol/L 21.0-32 .0 sodium, serum 137 mmol/L 687-731 4527/10/08 urea nitrogen, blood 8 mg/dL 7-18 creatinine, serum 0.98 mg/dL 0.60-1.30 Estimated Glomerular Filtration Rate (calc) 61 (?) mL/min/1.73m2 = OR > 60 mL/min alanine aminotransferase (SGPT), serum 37 U/L 12-78 aspartate aminotransferase (SGOT), serum 16 U/L 15-37 Lab Report: Comp. Metabolic Panel, CBC, Lipid [...] 50-136 Encounters Code Encounter Date Provider Facility CPT-43932 [id number] Vst-Est Level III 11:01:08 CDT Ra joe Lopes [facility] CPT-57732 Level 3 Est. Patient 14:41:20 TRANSACTION MANAGER David lion [facility] CPT-98735 [id number] Vst-Est Level IV 09:06:31 C ESAU Hu MD [facility] CPT-90321 Level 3 Est. Patient 14:16:41 CDT David Tin dle [facility] CPT-17008 Level 3 Est. Patient 13:57:55 CDT David Tin dle [facility] CPT-74726 Level 3 Est. Patient 16:08:07 CDT David Tin dle [facility] CPT-09284 Level 3 Est. Patient 16:53:54 CDT May haas MD [facility]-39609 [id number] Vst-Est Level IV 08:41:[address] Carlton Hu MD [facility] CPT-15522 Level 3 Est. Patient 09:46:49 TRANSACTION MANAGER David Muñiz dle [facility] CPT-22232 [id number] Vst-Est Level III 11:12:16 CDT Yanet Bess DO [facility] CPT-95620 Level 3 Est. Patient 11:34:49 TRANSACTION MANAGER Perez Mora MD [facility] CPT-52087 Level 4 Est. Patient 09:51:32 TRANSACTION MANAGER Carlton rich MD [facility] CPT-50724 Level 3 Est. Patient 10:26:00 TRANSACTION MANAGER Elise Are [facility] CPT-64861 Level 3 Est. Patient 13:35:41 TRANSACTION MANAGER Carlton rich MD [facility] CPT-19709 Level 3 Est. Patient 10:03:52 TRANSACTION MANAGER Carlton rich MD [facility] CPT-85712 Level 3 Est. Patient 12:17:50 CDT Hugo Restrepo MD [facility] CPT-49555 Level 3 Est. Patient 13:42:38 CDT Elise Are ll [facility] CPT-72475 Level 3 Est. Patient 13:23:51 CDT Diya cobian [facility] CPT-57136 Level 3 Est. Patient 14:22:19 TRANSACTION MANAGER Diya cobian [facility] CPT-76239 Level 3 Est. Patient 10:11:46 CDT Carlton rich MD [facility] CPT-92535 Level 3 Est. Patient 17:29:43 CDT Elise Are [facility] CPT-80972 Level 3 Est. Patient 11:58:06 CDT Elise Are ll [facility] CPT-49643 Level 4 Est. Patient 14:36:51 CDT Carlton rich MD [facility]-59083 Level 3 Est. Patient 18:16:00 TRANSACTION MANAGER Blaine Freeman [facility]-29531 Level 3 Est. Patient 09:45:49 TRANSACTION MANAGER Carlton rich MD [facility] CPT-28786 Level 3 Est. Patient 13:19:20 CDT Carlton rich MD [facility] CPT-68629 Level 3 Est. Patient 13:06:43 CDT Ridge tam DO [facility] CPT-51751 Level 3 Est. Patient 10:03:07 CDT Perez Mora MD [facility] CPT-88390 Level 3 Est. Patient 19:50:35 TRANSACTION MANAGER Carlton rich MD [facility] CPT-82197 Level 4 Est. Patient 18:05:01 TRANSACTION MANAGER Carlton rich MD [facility] CPT-20251 Level 3 Est. Patient 10:45:55 TRANSACTION MANAGER Hugo Restrepo MD [facility]-51438 Level 3 Est. Patient 14:12:49 CDT Griffin lincoln [facility] CPT-55118 Level 3 Est. Patient 17:37:24 CDT Carlton rich MD [facility] CPT-41278 Level 3 Est. Patient 16:51:54 CDT Carlton rich MD [facility] CPT-51567 Level 3 Est. Patient 12:18:11 CDT Hugo Restrepo MD [facility] CPT-16776 Level 3 Est. Patient 11:30:25 CDT Marcy crisostomo MD PhD [facility] CPT-39981 Level 3 Est. Patient 12:00:47 TRANSACTION MANAGER Carlton rich MD [facility] CPT-53423 Level 3 Est. Patient 16:31:06 TRANSACTION MANAGER Carlton rich MD [facility] CPT-14747 Level 3 Est. Patient 16:23:24 TRANSACTION MANAGER Ridge tam [facility] CPT-36789 Level 3 Est. Patient 12:34:12 CDT Carlton rich MD [facility] CPT-01285 Level 2 Est. Patient 15:43:33 CDT Robi armstrong MD [facility] CPT-54528 Level 4 Est. Patient 14:04:44 CDT Carlton rich MD [facility] CPT-03322 Level 3 Est. Patient 05:47:59 CDT Ridge tam [facility] CPT-27509 Level 3 Est. Patient 13:12:53 TRANSACTION MANAGER Carlton rich MD [facility] CPT-88434 Level 3 Est. Patient 14:26:53 CDT Hugo Restrepo MD [facility] Procedures Code Procedure Name Date Entry Date Standard Desc ription [id number] (4274F 2P) Patient Reason Influenza immu nization not administered 14:13:39 TRANSACTION MANAGER CPT-48211 Venipuncture Draw Fee 15:53:34 CDT CPT-000 Give Appropriate Flu Vaccine 14:14:31 CDT 2 CPT-J1040 Depo Medrol 80 mg (Methyl Prednisolone A cetate) 10:42:44 CDT CPT-J1100 Decadron 8mg (Dexamethasone) 10:42:44 CDT 2 CPT-J0696 Rocephin 1gm Inj Solr 14:32:13 CDT CPT-J1020 Depo Medrol 60 mg (Methyl Prednisolone A cetate) 14:32:13 CDT CPT-J1100 Decadron 6mg (Dexamethasone) 14:32:13 CDT 2 CPT-87715 Hip bilat min 2V w AP pelvis 13:16:20 CDT 2 CPT-30208 Pelvis only 13:07:33 CDT CPT-92264 Spec Collection and Handling Fee 11:25:12 C DT CPT-04092 Fluzone Quadrivalent Intramuscular Suspe nsion 0.5 ML 14:31:55 CDT CPT-17087 Abx/Therapy Injection 13:28:47 TRANSACTION MANAGER CPT-J2930 Solu Medrol 125 mg (Methyl Prednisolone Sodium Succinate) 12:00:47 TRANSACTION MANAGER CPT-84053 Venipuncture Draw Fee 11:33:31 CDT CPT-08092 EKG Trac and Interp 11:21:09 CDT CPT-57982 Chest 2V Frontal and Lat 11:21:09 CDT 12/15 CPT-21293 Venipuncture Draw Fee 08:02:34 CDT CPT-38971 Chest 2V Frontal and Lat 05:47:59 CDT 06/05
--- OUTSIDE RECORDS SUMMARY | 2019-10-08 08:46 | XMS REPORT | Clinical Summary ---
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 Body Mass Index 35.0-35.9, adult BMI 34-34.9 Active 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 N[employer]ITIONAL YEAST SUPERVISOR Body Mass Index 35.0-35.9, adult Upper respiratory [...] throat 462 Active 201 12/06/23 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 [employer]ITIONAL YE[employer] SUPER[employer]OR Acute pharyngitis Shingles 053.9 Active 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 [employer]ITIONAL YE[employer] SUPER[employer]OR Herpes zoster without mention of complication Allergic rhinitis, seasonal 477.0 Active Carlton Hu MD Allergic rhinitis due to pollen IBS (irritable bowel syndrome) 564.1 Active 01/06 Carlton Hu MD Irritable bowel syndrome GERD 530.81 Active Carlton Hu MD Esophageal reflux Cough, non-productive 786.2 Active 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 KHAN Cough BRONCHITIS ICD-490 Inactive Hugo Restrepo MD [...] pill by mouth twice daily AMOXICILLIN-POT CLAVULANATE 08457815607 Active 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 N[employer]ITIONAL YEAST SUPERVISOR Active PAXIL 40 MG ORAL TABLET take 1 tab po qday for depression 0 PAROXETINE HCL 58437893158 No Longer Active 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 NUTRITIONAL YEAST SUPERVISOR Acti ve ATORVASTATIN CALCIUM 10 MG ORAL TABLET 1 pill by mouth night ly, for cholesterol ATORVASTATIN CALCIUM 38340477034 No Longer Active Ran dy Marianne N[employer]ITIONAL YEAST SUPERVISOR Active GUAIFENESIN-CODEINE 100-10 MG/5ML ORAL SYRUP 1 tsp PO q6h PRN co ugh GUAIFENESIN-CODEINE 96287565068 No Longer Active 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 NUTRITIONAL YEAST SUPERVISOR Active TOPIRAMATE 100 MG ORAL TABLET Take 1 tablet by mouth twice daily 19/04/21 TOPIRAMATE 51257485532 Active Carlton Hu MD Active PAROXETINE HCL 40 MG TABS TAKE 1 TABLET BY MOUTH ONCE DAILY FOR DEPRESSION PAROXETINE HCL 75042773733 Active Carlton Hu MD Active HYDROCHLOROTHIAZIDE 25 MG ORAL TABLET Take 1 tablet by mouth once daily HYDROCHLOROTHIAZIDE 98321703387 Active Carlton Hu MD Active AMOXICILLIN-POT CLAVULANATE 875-125 MG ORAL TABLET 1 pill by mouth twice daily AMOXICILLIN-POT CLAVULANATE 20320881117 No Longer Act nael Lopes APRN Active DULOXETINE HCL 60 MG ORAL CAPSULE DELAYED RELEASE PART ICLES TAKE 1 CAPSULE BY MOUTH ONCE DAILY FOR PAIN AND MOOD DULOXETINE HCL 002 22196447 Active Carlton Hu MD Active TRAMADOL HCL 50 MG TABS TAKE 1 TABLET BY MOUTH THREE TIMES DAILY WITH EXTRA STRENGTH TYLENOL TRAMADOL HCL 90170599547 Active Carlton Hu MD Active ALPRAZOLAM 0.5 MG TABS TAKE 1 TABLET BY MOUTH ONCE DAILY NEEDED ALPRAZOLAM 32303546963 Active Carlton Hu MD Active GABAPENTIN 100 MG ORAL CAPSULE TAKE 1 CAPSULE BY MOUTH TWICE DAILY FOR FIBROMYALGIA GABAPENTIN 94260103197 Active Carlton Hu MD Active ELMIRON 100MG CAP TAKE 2 CAPSULES BY MOUTH IN THE MORNING AND 1 CAPSULE AT BEDTIME PENTOSAN POLYSULFATE SODIUM 42454446212 Active May Vivar MD Active TRIAMCINOLONE ACETONIDE 0.1 % EXTERNAL CREAM apply bid spari ngly to rash TRIAMCINOLONE ACETONIDE 01854819048 No Longer Active Carlton Hu MD Active TYLENOL WITH CODEINE #3 300-30 MG ORAL TABLET ACETAMINOPHEN-CODEINE 33800640183 No Longer Active Carlton Hu MD Active TYLENOL WITH CODEINE #3 300-30 MG ORAL TABLET 1-2 po q6hr PRN Pa in ACETAMINOPHEN-CODEINE 59908331585 No Longer Active David HERNANDEZ RN Active ACYCLOVIR 800 MG ORAL TABLET 1 po 5 times daily x 7 days ACYCLOVIR 72382786490 No Longer Active 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 N[employer]ITIONAL YEAST SUPERVISOR Active TOPAMAX 100 MG ORAL TABLET 1 by mouth twice daily TOPIRAMATE 77346765818 Active Carlton Hu MD Active TRIAMCINOLONE ACETONIDE 0.1 % EXTERNAL OINTMENT Apply to affected areas TID PRN Rash/Itching for up 2 weeks TRIAMCINOLONE ACETON KAYLA 10753255617 No Longer Active 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 [employer]ITIONAL YE[employer] SUPERVISOR Active AMOXICILLIN 500 MG ORAL CAPSULE 1 cap by mouth twice daily 10/21 AMOXICILLIN 55135725424 No Longer Active 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 [employer]ITIONAL YEAST SUPERVISOR Active CYMBALTA 30 MG ORAL CAPSULE DELAYED RELEASE PARTICLES 1 cap by mouth daily for depression DULOXETINE HCL 63320910532 No Longer Active Carlton Hu MD Active TUSSIONEX PENNKINETIC ER 10-8 MG/5ML ORAL SUSPENSION E XTENDED RELEASE 5ml po q12hr PRN Cough HYDROCOD POLST-CHLORPHEN POLST 04706768775 Active 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 NUTRITIONAL YEAST SUPERVISOR Active PREDNISONE 20 MG ORAL TABLET Take 2 tabs day 1 and 2 and 1 t ab days 3 and 4 PREDNISONE 29853942159 No Longer Active 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 NUTRITIONAL YEAST SUPERVISOR Active DOXYCYCLINE HYCLATE 100 MG ORAL CAPSULE 1 cap by mouth twice latasha ly DOXYCYCLINE HYCLATE 41110501950 No Longer Active 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 NUTRITIONAL YEAST SUPERVISOR Active TOPAMAX 100 MG ORAL TABLET Take 1 tablet po bid TOPIRAMATE 31737337423 No Longer Active 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 NUTRITIONAL YEAST SUPERVISOR Active TUSSIONEX PENNKINETIC ER 10-8 MG/5ML ORAL SUSPENSION E XTENDED RELEASE 5ml po q12hr PRN Cough HYDROCOD POLST-CHLORPHEN POLST 5 8891800639 No Longer Active 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 NUTRITIONAL YEAST SUPERVISOR Active AUGMENTIN 875-125 MG ORAL TABLET 1 po BID x 10 days 18/04/16 AMOXICILLIN-POT CLAVULANATE 00629302237 No Longer Active 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 NUTRITIONAL YEAST SUPERVISOR Active PREDNISONE 50 MG ORAL TABLET Take 50 mg dialy for 6 day s 7 PREDNISONE 72669644914 No Longer Active 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 NUTRITIONAL YEAST SUPERVISOR Active TUSSIONEX PENNKINETIC ER 10-8 MG/5ML ORAL SUSPENSION E XTENDED RELEASE 5ml po q12hr PRN Cough HYDROCOD POLST-CHLORPHEN POLST 5 4206873824 No Longer Active Cherelle Torres RN Active PREDNISONE 20 MG ORAL TABLET two tabs by mouth today, then one tab by mouth days two and three and four PREDNISONE 84434846914 No Lo nger Active Cherelle Torres RN Active AZITHROMYCIN 250 MG ORAL TABLET 2 po qd x 1 day, then 1 po q d x 4 days AZITHROMYCIN 59667915075 No Longer Active Ridge Bess DO Active PREDNISONE 20 MG ORAL TABLET 2 po qd x 5 days P REDNISONE 96492069908 No Longer Active Perez Mora MD Active PROAIR HFA 108 (90 BASE) MCG/ACT INHALATION AEROSOL SO LUTION 2 puffs four times a day as needed ALBUTEROL SULFATE 59813026341 No Long er Active Becky FUENTES Active ASPIRIN 81 MG ORAL TABLET 1 po qd ASPIRIN 41941132308 Active Carlton Hu MD Active PREDNISONE 20 MG ORAL TABLET 1 tab twice daily for 3 d ay, then one daily for three days PREDNISONE 33116525957 No Longer Active Carlton Hu MD Active AUGMENTIN 875-125 MG ORAL TABLET 1 po BID x 10 days 20 16/03/22 AMOXICILLIN-POT CLAVULANATE 19541025819 No Longer Active Elise Garcia APRN Active TERBINAFINE HCL 250 MG ORAL TABLET 1 qDay for nail fungus 7 TERBINAFINE HCL 30776938394 No Longer Active Carlton Hu MD A ctive AMOXICILLIN 500 MG ORAL CAPSULE 1 cap by mouth three times a day AMOXICILLIN 15275951234 No Longer Active Carlton Hu MD Active ELMIRON 100 MG ORAL CAPSULE 2 tablets in the am and 1 tablet at hs PENTOSAN POLYSULFATE SODIUM 29286928670 No Longer Active Robert Hu MD Active MUCINEX D 60-600 MG ORAL TABLET EXTENDED RELEASE 12 HOUR 1 t ab po q am PSEUDOEPHEDRINE-GUAIFENESIN 76716548188 No Longer Act nael Carlton Hu MD Active MUCINEX DM MAXIMUM STRENGTH 60-1200 MG ORAL TABLET EXT ENDED RELEASE 12 HOUR 1 tab po q am DEXTROMETHORPHAN-GUAIFENESIN 31968695535 No Longer Active Carlton Hu MD Active TUSSIONEX PENNKINETIC ER 10-8 MG/5ML ORAL SUSPENSION E XTENDED RELEASE 5ml po q12hr PRN Cough HYDROCOD POLST-CHLORPHEN POLST 5 0232077282 No Longer Active Carlton Hu MD Active POTASSIUM CHLORIDE ER 20 MEQ ORAL TABLET EXTENDED RELE ASE Take 1 by mouth 4 times daily for 7 days POTASSIUM CHLORIDE 10748803444 No Longer Active Carlton Hu MD Active ZITHROMAX 250 MG ORAL TABLET 2 po today, then 1 po q days 2-5 14/09/04 AZITHROMYCIN 54576301595 No Longer Active Elise Garcia APRN Active TUSSIONEX PENNKINETIC ER 10-8 MG/5ML ORAL SUSPENSION E XTENDED RELEASE 5 ml twice a day as needed for cough HYDROCOD POLST-CHLORPH EN POLST 88048078241 No Longer Active Elise Jose RICEN Active MONTELUKAST SODIUM 10 MG ORAL TABLET 1 po daily for Allergy MONTELUKAST SODIUM 55072170402 Active Calrton Hu MD Ac tive TUSSIONEX PENNKINETIC ER 10-8 MG/5ML ORAL SUSPENSION E XTENDED RELEASE 5ml po q12hr PRN Cough HYDROCOD POLST-CHLORPHEN POLST 5 2246583858 No Longer Active Hugo Restrepo MD Active LYRICA 100 MG ORAL CAPSULE Take 1 tab po BID for fibromyalgia 20 11/08/21 PREGABALIN 34825689771 No Longer Active Elise Garcia APRN A ctive PREDNISONE 20 MG ORAL TABLET 2 tabs daily for 3 days, 1 tab daily for 3 days, 1/2 tab daily for 2 days PREDNISONE 77435674443 No Longer Active Jillina Frakerriel [employer]ITIONAL YE[employer] SUPERVISOR Active TUSSIONEX PENNKINETIC ER 10-8 MG/5ML ORAL SUSPENSION E XTENDED RELEASE 5 mL PO q 12 hrs PRN cough HYDROCOD POLST-CHLORPHEN POLST 209692 18117 No Longer Active Jillina Frazell NUTRITIONAL YEAST SUPERVISOR Active FLUTICASONE PROPIONATE 50 MCG/ACT NASAL SUSPENSION 2 s prays each nostril daily until bottle is empty FLUTICASONE PROPIONATE 134604796 99 No Longer Active Jillina Frazell NUTRITIONAL YEAST SUPERVISOR Active ASMANEX 60 METERED DOSES 220 MCG/INH INHALATION AEROSO L POWDER BREATH ACTIVATED 1 puff bid with rinse after MOMETASONE FUROATE 2125851 4102 No Longer Active Jillina Cesarl NUTRITIONAL YEAST SUPERVISOR Active ZITHROMAX Z-REYNA 250 MG ORAL TABLET 2 today, then 1 daily for 4 d ays AZITHROMYCIN 18871415159 No Longer Active Elise Garcia NUTRITIONAL YEAST SUPERVISOR Active TUSSIONEX PENNKINETIC ER 10-8 MG/5ML ORAL SUSPENSION E XTENDED RELEASE 5ml po q12hr PRN Cough HYDROCOD POLST-CHLORPHEN POLST 5 9666554494 No Longer Active Elise Garcia APRN Active PREDNISONE 20 MG ORAL TABLET 2 tabs daily for 3 days, 1 tab daily for 3 days, 1/2 tab daily for 2 days PREDNISONE 69029528790 No Longer Active Jillina Frazell NUTRITIONAL YEAST SUPERVISOR Active AMOXICILLIN 500 MG ORAL CAPSULE 2 po BID x 10 days 201 09/29/08 AMOXICILLIN 34233616113 No Longer Active Jillina Frazell NUTRITIONAL YEAST SUPERVISOR Act nael SINGULAIR 10 MG ORAL TABLET 1 po qday for allergies 20 14/01/12 MONTELUKAST SODIUM 38853538173 No Longer Active Carlton Hu MD Active LEVAQUIN 500 MG ORAL TABLET 1 tablet by mouth daily 20 13/09/24 LEVOFLOXACIN 28669840148 No Longer Active Carlton Hu MD Acti ve FLUTICASONE PROPIONATE 50 MCG/ACT NASAL SUSPENSION 2 s prays each nostril daily for 2 weeks, then 1 spray each nostril daily. FLUTICASONE PROPIONATE 56042429230 Active David Lopes APRN Active ZITHROMAX 250 MG ORAL TABLET 2 po today, then 1 po q days 2-5 20 13/08/10 AZITHROMYCIN 55130935000 No Longer Active Elise Garcia APRN Active CEFDINIR 300 MG ORAL CAPSULE 1 po BID x 10 days CEFDINIR 38314268585 No Longer Active Carlton Hu MD Active ZOCOR 40 MG ORAL TABLET 1 tab by mouth daily SI MVASTATIN 56525182307 No Longer Active Carlton Hu MD Active CYCLOBENZAPRINE HCL 10 MG ORAL TABLET 1 tablet by mouth BID prn had pain CYCLOBENZAPRINE HCL 04288819992 No Longer Active Jayden Hu MD Active LEVOFLOXACIN 500 MG ORAL TABLET 1 tab PO daily x 10 days LEVOFLOXACIN 99975706795 No Longer Active Carlton Hu MD Acti ve PREDNISONE 20 MG ORAL TABLET 3 tab PO qd x 2d, 2 tab P O qd x 2d, 1 tab PO qd x 2d, 1/2 tab PO qd x 2d PREDNISONE 78034554969 No Lo nger Active Carlton Hu MD Active FLUTICASONE PROPIONATE 50 MCG/ACT NASAL SUSPENSION 1 t o 2 sprays each nostril daily FLUTICASONE PROPIONATE 08874511456 No Longer Ac tiisabel HERNANDEZ Active CHERATUSSIN AC 100-10 MG/5ML ORAL SYRUP 1 tsp by mouth every 4 hours as needed for cough GUAIFENESIN-CODEINE 91083232505 No Longe r Active Blaine HERNANDEZ Active PROMETHAZINE-CODEINE 6.25-10 MG/5ML ORAL SYRUP 1 tsp b y mouth every 6 hours if needed for cough PROMETHAZINE-CODEINE 06721638428 No Longer Active Blaine HERNANDEZ Active CHERATUSSIN AC 100-10 MG/5ML ORAL SYRUP 1 tsp by mouth every 4 hours as needed for cough GUAIFENESIN-CODEINE 21675558758 No Longe r Active Blaine HERNANDEZ Active ZITHROMAX Z-REYNA 250 MG ORAL TABLET 2 today, then 1 daily for 4 d ays AZITHROMYCIN 59357403085 No Longer Active Columba Raida Act nael ZITHROMAX 250 MG ORAL TABLET 2 po today, then 1 po q days 2-5 20 14/03/21 AZITHROMYCIN 90364229769 No Longer Active Carlton Hu MD Active ZITHROMAX Z-REYNA 250 MG ORAL TABLET 2 today, then 1 daily for 4 d ays AZITHROMYCIN 48875577264 No Longer Active Columba Raida Act nael AUGMENTIN 875-125 MG ORAL TABLET 1 po BID x 10 days 13/01/20 AMOXICILLIN-POT CLAVULANATE 80954000377 No Longer Active Diya De Guzman APRN Active ZITHROMAX 250 MG ORAL TABLET 2 po today, then 1 po q days 2-5 20 12/08/14 AZITHROMYCIN 33537426796 No Longer Active Carlton Hu MD Active PREMARIN 0.625 MG ORAL TABLET TAKE 1 TAB BY MOUTH DAILY ESTROGENS CONJUGATED 37952774289 No Longer Active Ridge Bess DO A ctive CYMBALTA 30 MG ORAL CAPSULE DELAYED RELEASE PARTICLES 1 cap by mouth daily DULOXETINE HCL 68856217848 No Longer Active Ridge tam DO Active AMOXICILLIN 500 MG ORAL CAPSULE 1 tab by mouth 3 times daily x 10 days AMOXICILLIN 41045223816 No Longer Active Carlton bustamante MD Active AMOXICILLIN 500 MG ORAL CAPSULE 1 tab by mouth 3 times daily x 10 days AMOXICILLIN 10881637119 No Longer Active Carlton bustamante MD Active PROMETHAZINE-CODEINE 6.25-10 MG/5ML ORAL SYRUP 1 tsp b y mouth every 8 hours prn cough PROMETHAZINE-CODEINE 96554922543 No Longer Acti ve Carlton Hu MD Active MEDROL 4 MG ORAL TABLET THERAPY PACK 6 pills x 1 day, then 5 pills x 1 day then 4 pills x 1 day, then 3 pills x 1 day, then 2 pills x 1 day, then 1 pill x 1 day, then stop METHYLPREDNISOLONE 54251379077 No Long er Active Perez Mora MD Active AZITHROMYCIN 250 MG ORAL TABLET 2 po qd x 1 day, then 1 po q d x 4 days AZITHROMYCIN 54507824935 No Longer Active Perez Ambriz MD Active SYMBICORT 160-4.5 MCG/ACT INHALATION AEROSOL 2 puffs bid wit h rinse after BUDESONIDE-FORMOTEROL FUMARATE 01317874709 N o Longer Active Perez Mora MD Active LYRICA 75 MG ORAL CAPSULE TAKE 1 CAPSULE BY MOUTH TWICE DAILY PREGABALIN 45736440940 No Longer Active Carlton Hu MD Acti ve TOPAMAX 25 MG ORAL TABLET 1 qHS x 1 week, then 1 BID x 1 week, then 1 qAM and 2 qHS x 1 week, then 2 BID (migraine prevention) T OPIRAMATE 85630283982 No Longer Active Jerica FUENTES Active TOPAMAX 50 MG ORAL TABLET take 1 tab po BID for migraines. 07/02 TOPIRAMATE 29215016281 No Longer Active Jerica FUENTES Active TRIAMCINOLONE ACETONIDE 0.1 % EXTERNAL CREAM apply three roger es daily prn rash TRIAMCINOLONE ACETONIDE 38988959012 No Longer Active Carlton Hu MD Active CHERATUSSIN AC 100-10 MG/5ML ORAL SYRUP 5ml po q6hr PRN Cough 20 13/04/14 GUAIFENESIN-CODEINE 93303519607 No Longer Active Carlton Hu MD Active MEDROL 4 MG ORAL TABLET THERAPY PACK 6 tabs on day 1, 5 tabs on day 2, 4 tabs on day 3, 3 tabs on day 4, 2 tabs on day 5, 1 tab on day 6 2013 METHYLPREDNISOLONE 03944367625 No Longer Active Perez Mora MD Active AZITHROMYCIN 250 MG ORAL TABLET 2 po qd x 1 day, then 1 po q d x 4 days AZITHROMYCIN 22314914564 No Longer Active Perez Ambriz MD Active PROPRANOLOL HCL 60 MG ORAL TABLET 1 PO Q D PROPRANOLOL HCL 86678554125 No Longer Active Perez Mora MD Activ e CHERATUSSIN AC 100-10 MG/5ML ORAL SYRUP take one tsp po Q 6h ours prn cough GUAIFENESIN-CODEINE 32947491520 No Longer Active Zia Mora MD Active AUGMENTIN 875-125 MG ORAL TABLET 1 tab by mouth twice daily with food AMOXICILLIN-POT CLAVULANATE 90527265603 No Longer Act nael Perez Mora MD Active CHERATUSSIN AC 100-10 MG/5ML ORAL SYRUP 1 tsp by mouth every 4 hours as needed for cough GUAIFENESIN-CODEINE 66219145565 No Longe r Active Hugo Retsrepo MD Active ACETAMINOPHEN-CODEINE #3 300-30 MG ORAL TABLET 1 PO Q 4-6 HRS [place] PAIN ACETAMINOPHEN-CODEINE 78533951060 No Longer Active Hugo Restrepo MD Active LEVAQUIN 500 MG ORAL TABLET take one po QD LEVO FLOXACIN 09509934598 No Longer Active Griffin HERNANDEZ Active PREDNISONE 20 MG ORAL TABLET Take 3 tabs daily for 3 d ays, 2 tabs daily for 3 days, 1 tab daily for 3 days, 1/2 tab daily for 3 days 11/07 PREDNISONE 70188029203 No Longer Active Carlton Hu MD Acti ve AVELOX 400 MG ORAL TABLET 1 tab by mouth daily MOXIFLOXACIN HCL 09876091167 No Longer Active Carlton Hu MD Active CHERATUSSIN AC 100-10 MG/5ML ORAL SYRUP 1 tsp by mouth every 4 hours as needed for cough GUAIFENESIN-CODEINE 12849617953 No Longe r Active Hugo Restrepo MD Active AVELOX 400 MG ORAL TABLET 1 tab by mouth daily MOXIFLOXACIN HCL 77494739223 No Longer Active Marcy De La Rosa MD PhD Active TERBINAFINE HCL 250 MG ORAL TABLET 1 qDay T ERBINAFINE HCL 56522934450 No Longer Active Marcy De La Rosa MD PhD Active CHERATUSSIN AC 100-10 MG/5ML ORAL SYRUP 1 tsp by mouth every 4 hours as needed for cough GUAIFENESIN-CODEINE 96588495273 No Longe r Active Marcy De La Rosa MD PhD Active AVELOX 400 MG ORAL TABLET 1 tab by mouth daily MOXIFLOXACIN HCL 78076813366 No Longer Active Marcy De La Rosa MD PhD Active HYDROCODONE-ACETAMINOPHEN 5-325 MG ORAL TABLET 1 po q 6hr PRN co ugh HYDROCODONE-ACETAMINOPHEN 34217991480 No Longer Active Marcy De La Rosa MD PhD Active PREDNISONE 20 MG ORAL TABLET 2 tabs daily for 3 days, 1 tab daily for 3 days, 1/2 tab daily for 2 days PREDNISONE 61913887886 No Longer Active Carlton Hu MD Active CEFDINIR 300 MG ORAL CAPSULE by mouth twice a day 2011 CEFDINIR 10587739193 No Longer Active Carlton Hu MD Acti ve ACETAMINOPHEN-CODEINE #3 300-30 MG ORAL TABLET 1 tablet po q 4-6 hrs prn pain ACETAMINOPHEN-CODEINE 03212130683 No Longer Active Ridge Bess DO Active ZITHROMAX 250 MG ORAL TABLET 2 po today, then 1 po q days 2-5 20 03/07/07 AZITHROMYCIN 73964947422 No Longer Active Carlton Hu MD Active CHERATUSSIN AC 100-10 MG/5ML ORAL SYRUP take 1 tsp po q4-6 h ours prn cough GUAIFENESIN-CODEINE 46976609068 No Longer Active Jayden Hu MD Active ACETAMINOPHEN-CODEINE #3 300-30 MG ORAL TABLET 1 PO Q 4-6 HR PRN PAIN ACETAMINOPHEN-CODEINE 37080300307 No Longer Active Da raimundo Hu MD Active LORTAB 7.5-500 MG/15ML ORAL ELIXIR 7.5 ml po q 4 hour prn cough HYDROCODONE-ACETAMINOPHEN 43353693301 No Longer Active Carlton Hu MD Active PREDNISONE 20 MG ORAL TABLET 1 po bid 3 days, then 1 po q day 3 days PREDNISONE 62666456962 No Longer Active Carlton Hu MD Active CEFDINIR 300 MG ORAL CAPSULE by mouth twice a day 2011 CEFDINIR 05078896164 No Longer Active Carlton Hu MD Acti ve CEFDINIR 300 MG ORAL CAPSULE by mouth twice a day 2010 CEFDINIR 24119754204 No Longer Active Carlton Hu MD Acti ve CEFDINIR 300 MG ORAL CAPSULE by mouth twice a day 2010 CEFDINIR 63402732516 No Longer Active Carlton Hu MD Acti ve TESSALON PERLES 100 MG ORAL CAPSULE 1 tablet by mouth 3 times daily as needed for cough BENZONATATE 12666031304 No Longer Active Carlton Hu MD Active CEFDINIR 300 MG ORAL CAPSULE by mouth twice a day 2010 CEFDINIR 01547888201 No Longer Active Calrton Hu MD Acti ve ZITHROMAX Z-REYNA 250 MG ORAL TABLET 2 today, then 1 daily for 4 d ays AZITHROMYCIN 47111193152 No Longer Active Hugo Restrepo MD Active TESSALON PERLES 100 MG ORAL CAPSULE 1 tablet by mouth 3 times daily as needed for cough TESSALON PERLES 100 MG ORAL CAPSULE 80557 7 BENZONATATE Inactive PREDNISONE 20 MG ORAL TABLET 1 po bid 3 days, then 1 po q day 3 days PREDNISONE 20 MG ORAL TABLET 302168 PREDNISONE Desdemona ctive LORTAB 7.5-500 MG/15ML ORAL ELIXIR 7.5 ml po q 4 hour prn cough LORTAB 7.5-500 MG/15ML ORAL ELIXIR HYDROCODONE-A CETAMINOPHEN Inactive ACETAMINOPHEN-CODEINE #3 300-30 MG ORAL TABLET 1 PO Q 4-6 HR PRN PAIN ACETAMINOPHEN-CODEINE #3 300-30 MG ORAL TABLET 9 84134 ACETAMINOPHEN-CODEINE Inactive CHERATUSSIN AC 100-10 MG/5ML ORAL SYRUP take 1 tsp po q4-6 h ours prn cough CHERATUSSIN AC 100-10 MG/5ML ORAL SYRUP 050853 GUAIFENESIN-CODEINE Inactive ACETAMINOPHEN-CODEINE #3 300-30 MG ORAL TABLET 1 tablet po q 4-6 hrs prn pain ACETAMINOPHEN-CODEINE #3 300-30 MG ORAL TABLET 016895 ACETAMINOPHEN-CODEINE Inactive HYDROCODONE-ACETAMINOPHEN 5-325 MG ORAL TABLET 1 po q 6hr PRN co ugh HYDROCODONE-ACETAMINOPHEN 5-325 MG ORAL TABLET 474841 HYDROCODONE-ACETAMINOPHEN Inactive AVELOX 400 MG ORAL TABLET 1 tab by mouth daily AVELOX 400 MG ORAL TABLET MOXIFLOXACIN HCL Inactive CHERATUSSIN AC 100-10 MG/5ML ORAL SYRUP 1 tsp by mouth every 4 hours as needed for cough CHERATUSSIN AC 100-10 MG/5ML ORAL SYRUP 9 87730 GUAIFENESIN-CODEINE Inactive TERBINAFINE HCL 250 MG ORAL TABLET 1 qDay 07/08 TERBINAFINE HCL 250 MG ORAL TABLET 031997 TERBINAFINE HCL Inactive CHERATUSSIN AC 100-10 MG/5ML ORAL SYRUP 1 tsp by mouth every 4 hours as needed for cough CHERATUSSIN AC 100-10 MG/5ML ORAL SYRUP 9 70992 GUAIFENESIN-CODEINE Inactive ACETAMINOPHEN-CODEINE #3 300-30 MG ORAL TABLET 1 PO Q 4-6 HRS [place] N PAIN ACETAMINOPHEN-CODEINE #3 300-30 MG ORAL TABLET 272576 ACETAMINOPHEN-CODEINE Inactive CHERATUSSIN AC 100-10 MG/5ML ORAL SYRUP 1 tsp by mouth every 4 hours as needed for cough CHERATUSSIN AC 100-10 MG/5ML ORAL SYRUP 9 26365 GUAIFENESIN-CODEINE Inactive AUGMENTIN 875-125 MG ORAL TABLET 1 tab by mouth twice daily with food AUGMENTIN 875-125 MG ORAL TABLET AMOXICIL MADELINE-POT CLAVULANATE Inactive CHERATUSSIN AC 100-10 MG/5ML ORAL SYRUP take one tsp po Q 6h ours prn cough CHERATUSSIN AC 100-10 MG/5ML ORAL SYRUP 984519 GUAIFENESIN-CODEINE Inactive PROPRANOLOL HCL 60 MG ORAL TABLET 1 PO Q D PROPRANOLOL HCL 60 MG ORAL TABLET 153834 PROPRANOLOL HCL Inactive TOPAMAX 50 MG ORAL TABLET take 1 tab po BID for migraines. 07/02 TOPAMAX 50 MG ORAL TABLET 960554 TOPIRAMATE Inacti ve TOPAMAX 25 MG ORAL TABLET 1 qHS x 1 week, then 1 BID x 1 week, then 1 qAM and 2 qHS x 1 week, then 2 BID (migraine prevention) TOPAMAX 25 MG ORAL TABLET 084020 TOPIRAMATE Inactive LYRICA 75 MG ORAL CAPSULE TAKE 1 CAPSULE BY MOUTH TWICE DAILY LYRICA 75 MG ORAL CAPSULE 563314 PREGABALIN Inactive SYMBICORT 160-4.5 MCG/ACT INHALATION AEROSOL 2 puffs bid wit h rinse after SYMBICORT 160-4.5 MCG/ACT INHALATION AEROSOL 124 630 BUDESONIDE-FORMOTEROL FUMARATE Inactive PROMETHAZINE-CODEINE 6.25-10 MG/5ML ORAL SYRUP 1 tsp b y mouth every 8 hours prn cough PROMETHAZINE-CODEINE 6.25-10 MG/ 5ML ORAL SYRUP 567658 PROMETHAZINE-CODEINE Inactive CYMBALTA 30 MG ORAL CAPSULE DELAYED RELEASE PARTICLES 1 cap by mouth daily CYMBALTA 30 MG ORAL CAPSULE DELAYED RELE ASE PARTICLES 835440 DULOXETINE HCL Inactive PREMARIN 0.625 MG ORAL TABLET TAKE 1 TAB BY MOUTH DAILY PREMARIN 0.625 MG ORAL TABLET ESTROGENS CONJUGATED Inactive CHERATUSSIN AC 100-10 MG/5ML ORAL SYRUP 1 tsp by mouth every 4 hours as needed for cough CHERATUSSIN AC 100-10 MG/5ML ORAL SYRUP 9 80939 GUAIFENESIN-CODEINE Inactive PROMETHAZINE-CODEINE 6.25-10 MG/5ML ORAL SYRUP 1 tsp b y mouth every 6 hours if needed for cough PROMETHAZINE-CODEINE 6.25-10 MG/5ML ORAL SYRUP 325716 PROMETHAZINE-CODEINE Inactive CHERATUSSIN AC 100-10 MG/5ML ORAL SYRUP 1 tsp by mouth every 4 hours as needed for cough CHERATUSSIN AC 100-10 MG/5ML ORAL SYRUP 9 14050 GUAIFENESIN-CODEINE Inactive FLUTICASONE PROPIONATE 50 MCG/ACT NASAL SUSPENSION 1 t o 2 sprays each nostril daily FLUTICASONE PROPIONATE 50 MCG/AC T NASAL SUSPENSION 7953266 FLUTICASONE PROPIONATE Inactive PREDNISONE 20 MG ORAL TABLET 3 tab PO qd x 2d, 2 tab P O qd x 2d, 1 tab PO qd x 2d, 1/2 tab PO qd x 2d PREDNISONE 20 MG ORAL TAB LET 759601 PREDNISONE Inactive LEVOFLOXACIN 500 MG ORAL TABLET 1 tab PO daily x 10 days LEVOFLOXACIN 500 MG ORAL TABLET 387334 LEVOFLOXACIN Inactive CYCLOBENZAPRINE HCL 10 MG ORAL TABLET 1 tablet by mouth BID prn had pain CYCLOBENZAPRINE HCL 10 MG ORAL TABLET 865579 CYCLOBENZAPRINE HCL Inactive ZOCOR 40 MG ORAL TABLET 1 tab by mouth daily 4 ZOCOR 40 MG ORAL TABLET 023546 SIMVASTATIN Inactive TUSSIONEX PENNKINETIC ER 10-8 MG/5ML [...] FLUTICASONE PROPIO EFE 50 MCG/ACT NASAL SUSPENSION [id number] FLUTICASONE PROPIONATE Inactive TUSSIONEX PENNKINETIC ER 10-8 MG/5ML ORAL SUSPENSION E XTENDED RELEASE 5 mL PO q 12 hrs PRN cough TUSSIONEX PENNKINETI C ER 10-8 MG/5ML ORAL SUSPENSION EXTENDED RELEASE HYDROCOD POLST-CHLORPHEN POLST I nactive LYRICA 100 MG ORAL CAPSULE Take 1 tab po BID for fibromyalgia 20 11/08/21 LYRICA 100 MG ORAL CAPSULE [id number] PREGABALIN Inact nael TUSSIONEX PENNKINETIC ER 10-8 [...] three days PREDNISONE 20 MG ORAL TABLET 555383 PREDNIS ONE Inactive PROAIR HFA 108 (90 BASE) MCG/ACT INHALATION AEROSOL SO LUTION 2 puffs four times a day as needed PROAIR HFA 108 (90 B ASE) MCG/ACT INHALATION AEROSOL SOLUTION ALBUTEROL SULFATE Inactive PREDNISONE 20 MG ORAL TABLET two tabs by mouth today, then one tab by mouth days two and three and four PREDNISONE 20 MG ORAL TAB LET 340895 PREDNISONE Inactive TUSSIONEX PENNKINETIC ER 10-8 MG/5ML [...] bid 04/20 TOPAMAX 100 MG ORAL TABLET 130427 TOPIRAMATE Inactive CYMBALTA 30 MG ORAL CAPSULE DELAYED RELEASE PARTICLES 1 cap by mouth daily for depression CYMBALTA 30 MG ORAL CAPSULE DELAYED RELEASE PARTICLES 893402 DULOXETINE HCL Inactive TYLENOL WITH CODEINE #3 300-30 MG ORAL TABLET 1-2 po q6hr PRN Pa in TYLENOL WITH CODEINE #3 300-30 MG ORAL TABLET 228790 ACETAMINOPHEN-CODEINE Inactive TYLENOL WITH CODEINE #3 300-30 MG ORAL TABLET TYLENOL WITH CODEINE #3 300-30 MG ORAL TABLET 429572 ACETAMINOPHEN-CODEINE Inactive TRIAMCINOLONE ACETONIDE 0.1 % EXTERNAL CREAM apply bid spari ngly to rash TRIAMCINOLONE ACETONIDE 0.1 % EXTERNAL CREAM 101 4314 TRIAMCINOLONE ACETONIDE Inactive GUAIFENESIN-CODEINE 100-10 MG/5ML ORAL SYRUP 1 tsp PO q6h PRN co ugh GUAIFENESIN-CODEINE 100-10 MG/5ML ORAL SYRUP 755506 GUAIFENESIN-CODEINE Inactive ATORVASTATIN CALCIUM 10 MG ORAL TABLET 1 pill by mouth night ly, for cholesterol ATORVASTATIN CALCIUM 10 MG ORAL TABLET 110677 ATORVASTATIN CALCIUM Inactive PAXIL 40 MG ORAL TABLET take 1 tab po qday for depression 0 PAXIL 40 MG ORAL TABLET 4285816 PAROXETINE HCL Inactive ZITHROMAX Z-REYNA 250 MG ORAL TABLET 2 today, then 1 daily for 4 d ays ZITHROMAX Z-RENYA 250 MG ORAL TABLET 334493 AZITHROMYCIN Inactive CEFDINIR 300 MG ORAL CAPSULE [...] 2-08 1703/07/07 ZITHROMAX 250 MG ORAL TABLET 273968 AZITHROMYCIN Greer ctive CEFDINIR 300 MG ORAL CAPSULE by mouth twice a day 2011 CEFDINIR 300 MG ORAL CAPSULE 20020704 CEFDINIR Inactive PREDNISONE 20 MG ORAL TABLET 2 tabs daily for 3 days, 1 tab daily for 3 days, 1/2 tab daily for 2 days PREDNISONE 20 MG ORAL T ABLET 025166 PREDNISONE Inactive AVELOX 400 MG ORAL TABLET [...] days 11/07 PREDNISONE 20 MG ORAL TABLET 193067 PREDNISONE Inactive LEVAQUIN 500 MG ORAL TABLET take one po QD LEVAQUIN 500 MG ORAL TABLET 548187 LEVOFLOXACIN Inactive AZITHROMYCIN 250 MG ORAL TABLET 2 po qd x 1 day, then 1 po q d x 4 days AZITHROMYCIN 250 MG ORAL TABLET 520762 AZITHROMY GIOVANNI Inactive MEDROL 4 MG ORAL TABLET THERAPY PACK 6 tabs on day 1, 5 tabs on day 2, 4 tabs on day 3, 3 tabs on day 4, 2 tabs on day 5, 1 tab on day 6 2013 MEDROL 4 MG ORAL TABLET THERAPY PACK 530254 METHYLPREDNISOLONE Greer ctive CHERATUSSIN AC 100-10 MG/5ML ORAL SYRUP 5ml po q6hr PRN Cough 20 13/04/14 CHERATUSSIN AC 100-10 MG/5ML ORAL SYRUP 999779 GUAIFENE SIN-CODEINE Inactive TRIAMCINOLONE ACETONIDE 0.1 % EXTERNAL CREAM apply three roger es daily prn rash TRIAMCINOLONE ACETONIDE 0.1 % EXTERNAL CREAM 101 4314 TRIAMCINOLONE ACETONIDE Inactive AZITHROMYCIN 250 MG ORAL TABLET 2 po qd x 1 day, then 1 po q d x 4 days AZITHROMYCIN 250 MG ORAL TABLET 486811 AZITHROMY GIOVANNI Inactive MEDROL 4 MG ORAL TABLET THERAPY PACK 6 pills x 1 day, then 5 pills x 1 day then 4 pills x 1 day, then 3 pills x 1 day, then 2 pills x 1 day, then 1 pill x 1 day, then stop MEDROL 4 MG ORAL TABLET THERAPY PACK 481581 METHYLPREDNISOLONE Inactive AMOXICILLIN 500 MG ORAL CAPSULE 1 tab by mouth 3 times daily x 10 days AMOXICILLIN 500 MG ORAL CAPSULE 346583 AMOXICILL IN Inactive AMOXICILLIN 500 MG ORAL CAPSULE 1 tab by mouth 3 times daily x 10 days AMOXICILLIN 500 MG ORAL CAPSULE 470414 AMOXICILL IN Inactive ZITHROMAX 250 MG ORAL TABLET 2 po today, then 1 po q days 2-5 20 12/08/14 ZITHROMAX 250 MG ORAL TABLET 651483 AZITHROMYCIN Greer ctive AUGMENTIN 875-125 MG ORAL TABLET 1 po BID x 10 days 20 13/01/20 AUGMENTIN 875-125 MG ORAL TABLET AMOXICILLIN-POT CLAVULANATE Inactive ZITHROMAX Z-REYNA 250 MG ORAL TABLET 2 today, then 1 daily for 4 d ays ZITHROMAX Z-REYNA 250 MG ORAL TABLET 483413 AZITHROMYCIN Inactive ZITHROMAX 250 MG ORAL TABLET 2 po today, then 1 po q days 2-5 20 14/03/21 ZITHROMAX 250 MG ORAL TABLET 325049 AZITHROMYCIN Desdemona ctive ZITHROMAX Z-REYNA 250 MG ORAL TABLET 2 today, then 1 daily for 4 d ays ZITHROMAX Z-REYNA 250 MG ORAL TABLET 387957 AZITHROMYCIN Inactive CEFDINIR 300 MG ORAL CAPSULE 1 po BID x 10 days 06/21 CEFDINIR 300 MG ORAL CAPSULE 638800 CEFDINIR Inactive ZITHROMAX 250 MG ORAL TABLET 2 po today, then 1 po q days 2-5 20 13/08/10 ZITHROMAX 250 MG ORAL TABLET 414663 AZITHROMYCIN Greer ctive LEVAQUIN 500 MG ORAL TABLET 1 tablet by mouth daily 13/09/24 LEVAQUIN 500 MG ORAL TABLET 194133 LEVOFLOXACIN Inactive SINGULAIR 10 MG ORAL TABLET 1 po qday for allergies 20 14/01/12 SINGULAIR 10 MG ORAL TABLET 912014 MONTELUKAST SODIUM Inactive AMOXICILLIN 500 MG ORAL CAPSULE 2 po BID x 10 days 201 09/29/08 AMOXICILLIN 500 MG ORAL CAPSULE 945573 AMOXICILLIN Inactive PREDNISONE 20 MG ORAL TABLET 2 tabs daily for 3 days, 1 tab daily for 3 days, 1/2 tab daily for 2 days PREDNISONE 20 MG ORAL T ABLET 248975 PREDNISONE Inactive ZITHROMAX Z-REYNA 250 MG ORAL TABLET 2 today, then 1 daily for 4 d ays ZITHROMAX Z-REYNA 250 MG ORAL TABLET 303560 AZITHROMYCIN Inactive PREDNISONE 20 MG ORAL TABLET 2 tabs daily for 3 days, 1 tab daily for 3 days, 1/2 tab daily for 2 days PREDNISONE 20 MG ORAL T ABLET 426411 PREDNISONE Inactive ZITHROMAX 250 MG ORAL TABLET 2 po today, then 1 po q days 2-5 20 14/09/04 ZITHROMAX 250 MG ORAL TABLET 406721 AZITHROMYCIN Desdemona ctive AMOXICILLIN 500 MG ORAL CAPSULE 1 cap by mouth three times a day AMOXICILLIN 500 MG ORAL CAPSULE 410169 AMOXICILLIN Inactive TERBINAFINE HCL 250 MG ORAL TABLET 1 qDay for nail fungus 7 TERBINAFINE HCL 250 MG ORAL TABLET 259728 TERBINAFINE HCL Inact nael AUGMENTIN 875-125 MG ORAL TABLET 1 po BID x 10 days 16/03/22 AUGMENTIN 875-125 MG ORAL TABLET AMOXICILLIN-POT CLAVULANATE Inactive PREDNISONE 20 MG ORAL TABLET 2 po qd x 5 days PREDNISONE 20 MG ORAL TABLET 570704 PREDNISONE Inactive AZITHROMYCIN 250 MG ORAL TABLET 2 po qd x 1 day, then 1 po q d x 4 days AZITHROMYCIN 250 MG ORAL TABLET 437560 AZITHROMY GIOVANNI Inactive PREDNISONE 50 MG ORAL TABLET Take 50 mg dialy for 6 day s 7 PREDNISONE 50 MG ORAL TABLET 507959 PREDNISONE Inactive AUGMENTIN 875-125 MG ORAL TABLET 1 po BID x 10 days 18/04/16 AUGMENTIN 875-125 MG ORAL TABLET AMOXICILLIN-POT CLAVULANATE Inactive DOXYCYCLINE HYCLATE 100 MG ORAL CAPSULE 1 cap by mouth twice latasha ly DOXYCYCLINE HYCLATE 100 MG ORAL CAPSULE 3907319 DOXYCYCL INE HYCLATE Inactive PREDNISONE 20 MG ORAL TABLET Take 2 tabs day 1 and 2 and 1 t ab days 3 and 4 PREDNISONE 20 MG ORAL TABLET 605076 PREDNISONE Inactive AMOXICILLIN 500 MG ORAL CAPSULE 1 cap by mouth twice daily 10/21 AMOXICILLIN 500 MG ORAL CAPSULE 635250 AMOXICILLIN Inactive TRIAMCINOLONE ACETONIDE 0.1 % EXTERNAL OINTMENT Apply to affected areas TID PRN Rash/Itching for up 2 weeks TRIAMCINOLON E ACETONIDE 0.1 % EXTERNAL OINTMENT 7135878 TRIAMCINOLONE ACETONIDE Inactive ACYCLOVIR 800 MG ORAL TABLET 1 po 5 times daily x 7 days ACYCLOVIR 800 MG ORAL TABLET 340471 ACYCLOVIR Inactive AMOXICILLIN-POT CLAVULANATE 875-125 MG ORAL TABLET 1 pill by mouth twice daily AMOXICILLIN-POT CLAVULANATE 875-125 MG ORAL TABL ET 429006 AMOXICILLIN-POT CLAVULANATE Inactive Vital Signs Date Name [...] Panel - Chemistry sodium, serum 137 mmol/L 583-091 8556/10/08 carbon dioxide, venous blood 29.9 mmol/L 21.0-32 [...] 0.50 mg/dL 0.00-1.00 cholesterol, serum 324 mg/dL 709-112 9358/10/08 triglyceride, serum, fasting 130 mg/dL 30-200 HDL [...] 50-136 Encounters Code Encounter Date Provider Facility CPT-79774 [id number] Vst-Est Level III 11:01:08 CDT Ra joe Lopes [facility] CPT-08394 Level 3 Est. Patient 14:41:20 PIG IRON LOADER David lion [facility] CPT-99053 [id number] Vst-Est Level IV 09:06:31 C ESAU Hu MD [facility] CPT-63941 Level 3 Est. Patient 14:16:41 CDT David Tin dle [facility] CPT-86142 Level 3 Est. Patient 13:57:55 CDT David Tin dle [facility] CPT-48041 Level 3 Est. Patient 16:08:07 CDT David Tin dle [facility] CPT-38232 Level 3 Est. Patient 16:53:54 CDT May haas MD [facility]-49474 [id number] Vst-Est Level IV 08:41:[address] Carlton Hu MD [facility] CPT-96427 Level 3 Est. Patient 09:46:49 PIG IRON LOADER David Muñiz dle [facility] CPT-30410 [id number] Vst-Est Level III 11:12:16 CDT Yanet Bess DO [facility] CPT-18954 Level 3 Est. Patient 11:34:49 PIG IRON LOADER Perez Mora MD [facility] CPT-40073 Level 4 Est. Patient 09:51:32 PIG IRON LOADER Carlton rich MD [facility] CPT-70712 Level 3 Est. Patient 10:26:00 PIG IRON LOADER Elise Are [facility] CPT-15688 Level 3 Est. Patient 13:35:41 PIG IRON LOADER Carlton rich MD [facility] CPT-84014 Level 3 Est. Patient 10:03:52 PIG IRON LOADER Carlton rich MD [facility] CPT-66683 Level 3 Est. Patient 12:17:50 CDT Hugo Restrepo MD [facility] CPT-65007 Level 3 Est. Patient 13:42:38 CDT Elise Are ll [facility] CPT-51248 Level 3 Est. Patient 13:23:51 CDT Diya cobian [facility] CPT-21902 Level 3 Est. Patient 14:22:19 PIG IRON LOADER Diya cobian [facility]-98605 Level 3 Est. Patient 10:11:46 CDT Carlton rich MD [facility]-44835 Level 3 Est. Patient 17:29:43 CDT Elise Are [facility] CPT-59365 Level 3 Est. Patient 11:58:06 CDT Elise Are ll [facility] CPT-83165 Level 4 Est. Patient 14:36:51 CDT Carlton rich MD [facility]-37447 Level 3 Est. Patient 18:16:00 PIG IRON LOADER Blaine Freeman [facility]-53923 Level 3 Est. Patient 09:45:49 PIG IRON LOADER Carlton rich MD [facility]-88800 Level 3 Est. Patient 13:19:20 CDT Carlton rich MD [facility] CPT-98359 Level 3 Est. Patient 13:06:43 CDT Ridge tam DO [facility]-70714 Level 3 Est. Patient 10:03:07 CDT Perez Mora MD [facility] CPT-89510 Level 3 Est. Patient 19:50:35 PIG IRON LOADER Carlton rich MD [facility] CPT-32148 Level 4 Est. Patient 18:05:01 PIG IRON LOADER Carlton rich MD [facility] CPT-57862 Level 3 Est. Patient 10:45:55 PIG IRON LOADER Hugo Restrepo MD [facility]-31186 Level 3 Est. Patient 14:12:49 CDT Griffin lincoln [facility]-55426 Level 3 Est. Patient 17:37:24 CDT Carlton rich MD [facility] CPT-64809 Level 3 Est. Patient 16:51:54 CDT Carlton rich MD [facility] CPT-23339 Level 3 Est. Patient 12:18:11 CDT Hugo Restrepo MD [facility] CPT-09305 Level 3 Est. Patient 11:30:25 CDT Marcy crisostomo MD PhD [facility] CPT-74840 Level 3 Est. Patient 12:00:47 PIG IRON LOADER Carlton rich MD [facility] CPT-38499 Level 3 Est. Patient 16:31:06 PIG IRON LOADER Carlton rich MD [facility] CPT-76630 Level 3 Est. Patient 16:23:24 PIG IRON LOADER Ridge tam [facility] CPT-93652 Level 3 Est. Patient 12:34:12 CDT Carlton rich MD [facility] CPT-78435 Level 2 Est. Patient 15:43:33 CDT Robi armstrong MD [facility] CPT-99104 Level 4 Est. Patient 14:04:44 CDT Carlton rich MD [facility] CPT-17362 Level 3 Est. Patient 05:47:59 CDT Ridge tam [facility] CPT-68304 Level 3 Est. Patient 13:12:53 PIG IRON LOADER Carlton rich MD [facility] CPT-01596 Level 3 Est. Patient 14:26:53 CDT Hugo Restrepo MD [facility] Procedures Code Procedure Name Date Entry Date Standard Desc ription [id number] (4274F 2P) Patient Reason Influenza immu nization not administered 14:13:39 PIG IRON LOADER CPT-72297 Venipuncture Draw Fee 15:53:34 CDT CPT-000 Give Appropriate Flu Vaccine 14:14:31 CDT 2 CPT-J1040 Depo Medrol 80 mg (Methyl Prednisolone A cetate) 10:42:44 CDT CPT-J1100 Decadron 8mg (Dexamethasone) 10:42:44 CDT 2 CPT-J0696 Rocephin 1gm Inj Solr 14:32:13 CDT CPT-J1020 Depo Medrol 60 mg (Methyl Prednisolone A cetate) 14:32:13 CDT CPT-J1100 Decadron 6mg (Dexamethasone) 14:32:13 CDT 2 CPT-39989 Hip bilat min 2V w AP pelvis 13:16:20 CDT 2 CPT-37586 Pelvis only 13:07:33 CDT CPT-53046 Spec Collection and Handling Fee 11:25:12 C DT CPT-69622 Fluzone Quadrivalent Intramuscular Suspe nsion 0.5 ML 14:31:55 CDT CPT-60358 Abx/Therapy Injection 13:28:47 PIG IRON LOADER CPT-J2930 Solu Medrol 125 mg (Methyl Prednisolone Sodium Succinate) 12:00:47 P[employer] IRON LOADER CPT-58837 Venipuncture Draw Fee 11:33:31 CDT CPT-97088 EKG Trac and Interp 11:21:09 CDT CPT-12313 Chest 2V Frontal and Lat 11:21:09 CDT 12/15 CPT-11425 Venipuncture Draw Fee 08:02:34 CDT CPT-15070 Chest 2V Frontal and Lat 05:47:59 CDT 06/05
--- OUTSIDE RECORDS SUMMARY | 2019-10-08 08:47 | XMS REPORT | Clinical Summary ---
Author Author Caitlin, Juliana Martinez Organization [facility] Address Unknown Phone Unavailable Allergies, Adverse [...] URI 465.9 Inactive Ridge Bess DO Ac [place] upper respiratory infections of unspecified site Body Mass Index 35.0-35.9 Adult Refinement 2017 Ridge Bess DO Body Mass Index 35.0-35.9, adult BMI 34-34.9 Refinement Cherelle Torres RN Body Mass Index 35.0-35.9, adult BMI 35-35.9 Refinement 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amisha RICEN Body Mass Index 35.0-35.9, adult BMI 34-34.9 Refinement May Vivar MD Body Mass Index 35.0-35.9, adult BMI 35-35.9 Refinement 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 [employer] Body Mass Index 35.0-35.9, adult BMI 33-33.9 Active 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 [employer] Body Mass Index 35.0-35.9, adult Upper respiratory infection, viral 465.9 Active 2 Perez Mora MD Acute upper respiratory infections of un specified site Obesity Class I (BMI 30-34.9) Refinement Jose Torres RN Obesity, unspecified Morbid obesity due to excess [facility] 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amisha RICEN Obesity, unspecified Obesity Class II (BMI 35-39.9) Refinement Robert Hu MD Obesity, unspecified Obesity Class I (BMI 30-34.9) Refinement May Vivar MD Obesity, unspecified Obesity Class II (BMI 35-39.9) Refinement Ran dy Marianne KHAN Obesity, unspecified Obesity Class I (BMI 30-34.9) Active David T faustinole BILL Obesity, unspecified Hypertension, systolic 401.9 Active Carlton bustamante MD Unspecified essential hypertension Interstitial Cystitis 595.1 Active May lorenz MD Chronic interstitial cystitis Rash and other nonspecific skin eruption 782.1 Active 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 [employer] Rash and other nonspecific skin eruption Pharyngitis, acute / sore throat 462 Active 201 12/06/23 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 [employer] Acute pharyngitis Shingles 053.9 Active 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 [employer] Herpes zoster without mention of complication Allergic [...] Generic Name NDC Status Provider Patient Instruction TOPIRAMATE 100 MG ORAL TABLET Take 1 tablet by mouth twice daily 19/04/21 TOPIRAMATE 61223566512 Active Carlton Hu MD Active PAROXETINE HCL 40 MG TABS TAKE 1 TABLET BY MOUTH ONCE DAILY FOR DEPRESSION PAROXETINE HCL 43132519990 Active Carlton Hu MD Active HYDROCHLOROTHIAZIDE 25 MG ORAL TABLET Take 1 tablet by mouth once daily HYDROCHLOROTHIAZIDE 36737083900 Active Carlton Hu MD Active GUAIFENESIN-CODEINE 100-10 MG/5ML ORAL SYRUP 1 tsp PO q6h PRN co ugh GUAIFENESIN-CODEINE 11052558758 Active Carlton Hu MD Active AMOXICILLIN-POT CLAVULANATE 875-125 MG ORAL TABLET 1 pill by mouth twice daily AMOXICILLIN-POT CLAVULANATE 31821508886 No Longer Act nael Lopes APRN Active DULOXETINE HCL 60 MG ORAL CAPSULE DELAYED RELEASE PART ICLES TAKE 1 CAPSULE BY MOUTH ONCE DAILY FOR PAIN AND MOOD DULOXETINE HCL 002 41591765 Active Carlton Hu MD Active TRAMADOL HCL 50 MG TABS TAKE 1 TABLET BY MOUTH THREE TIMES DAILY WITH EXTRA STRENGTH TYLENOL TRAMADOL HCL 17384167206 Active Carlton Hu MD Active ALPRAZOLAM 0.5 MG TABS TAKE 1 TABLET BY MOUTH ONCE DAILY NEEDED ALPRAZOLAM 27675679226 Active Carlton Hu MD Active GABAPENTIN 100 MG ORAL CAPSULE TAKE 1 CAPSULE BY MOUTH TWICE DAILY FOR FIBROMYALGIA GABAPENTIN 43318806943 Active Carlton Hu MD Active ELMIRON 100MG CAP TAKE 2 CAPSULES BY MOUTH IN THE MORNING AND 1 CAPSULE AT BEDTIME PENTOSAN POLYSULFATE SODIUM 00981572868 Active May Vivar MD Active ATORVASTATIN CALCIUM 10 MG ORAL TABLET 1 pill by mouth night ly, for cholesterol ATORVASTATIN CALCIUM 54337256613 Active Columba Parrish Active TRIAMCINOLONE ACETONIDE 0.1 % EXTERNAL CREAM apply bid spari ngly to rash TRIAMCINOLONE ACETONIDE 05370885875 No Longer Active Carlton Hu MD Active TYLENOL WITH CODEINE #3 300-30 MG ORAL TABLET ACETAMINOPHEN-CODEINE 75470348217 No Longer Active Carlton Hu MD Active TYLENOL WITH CODEINE #3 300-30 MG ORAL TABLET 1-2 po q6hr PRN Pa in ACETAMINOPHEN-CODEINE 33597160802 No Longer Active David HERNANDEZ RN Active ACYCLOVIR 800 MG ORAL TABLET 1 po 5 times daily x 7 days ACYCLOVIR 06416522055 No Longer Active David Lopes APRN Active TOPAMAX 100 MG ORAL TABLET 1 by mouth twice daily TOPIRAMATE 37158641908 Active Carlton Hu MD Active TRIAMCINOLONE ACETONIDE 0.1 % EXTERNAL OINTMENT Apply to affected areas TID PRN Rash/Itching for up 2 weeks TRIAMCINOLONE ACETON KAYLA 13642349387 No Longer Active David Lopes APRN Active AMOXICILLIN 500 MG ORAL CAPSULE 1 cap by mouth twice daily 10/21 AMOXICILLIN 50350034194 No Longer Active 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 [employer]ATE Active CYMBALTA 30 MG ORAL CAPSULE DELAYED RELEASE PARTICLES 1 cap by mouth daily for depression DULOXETINE HCL 58837587081 No Longer Active Carlton Hu MD Active TUSSIONEX PENNKINETIC ER 10-8 MG/5ML ORAL SUSPENSION E XTENDED RELEASE 5ml po q12hr PRN Cough HYDROCOD POLST-CHLORPHEN POLST 13260918495 Active Carlton Hu MD Active PREDNISONE 20 MG ORAL TABLET Take 2 tabs day 1 and 2 and 1 t ab days 3 and 4 PREDNISONE 46530512061 No Longer Active 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 [employer] SAL[employer]ATE Active DOXYCYCLINE HYCLATE 100 MG ORAL CAPSULE 1 cap by mouth twice latasha ly DOXYCYCLINE HYCLATE 63106375268 No Longer Active 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 [employer] SAL[employer]ATE Active TOPAMAX 100 MG ORAL TABLET Take 1 tablet po bid TOPIRAMATE 68299668222 No Longer Active 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 [employer] SAL[employer]ATE Active TUSSIONEX PENNKINETIC ER 10-8 MG/5ML ORAL SUSPENSION E XTENDED RELEASE 5ml po q12hr PRN Cough HYDROCOD POLST-CHLORPHEN POLST 5 9608158942 No Longer Active 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 [employer] SAL[employer]ATE Active AUGMENTIN 875-125 MG ORAL TABLET 1 po BID x 10 days 20 18/04/16 AMOXICILLIN-POT CLAVULANATE 52239551556 No Longer Active 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 [employer] SAL[employer]ATE Active PREDNISONE 50 MG ORAL TABLET Take 50 mg dialy for 6 day s 7 PREDNISONE 16563353264 No Longer Active 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 [employer] SAL[employer]IATE Active TUSSIONEX PENNKINETIC ER 10-8 MG/5ML ORAL SUSPENSION E XTENDED RELEASE 5ml po q12hr PRN Cough HYDROCOD POLST-CHLORPHEN POLST 5 2393555332 No Longer Active Cherelle Torres RN Active PREDNISONE 20 MG ORAL TABLET two tabs by mouth today, then one tab by mouth days two and three and four PREDNISONE 33803957637 No Lo nger Active Cherelle Torres RN Active AZITHROMYCIN 250 MG ORAL TABLET 2 po qd x 1 day, then 1 po q d x 4 days AZITHROMYCIN 12936517093 No Longer Active Ridge Bess DO Active PREDNISONE 20 MG ORAL TABLET 2 po qd x 5 days P REDNISONE 40095728054 No Longer Active Perez Mora MD Active PROAIR HFA 108 (90 BASE) MCG/ACT INHALATION AEROSOL SO LUTION 2 puffs four times a day as needed ALBUTEROL SULFATE 78051898512 No Long er Active Becky AGUILARA Active ASPIRIN 81 MG ORAL TABLET 1 po qd ASPIRIN 55771203201 Active Carlton Hu MD Active PREDNISONE 20 MG ORAL TABLET 1 tab twice daily for 3 d ay, then one daily for three days PREDNISONE 95236499715 No Longer Active Carlton Hu MD Active AUGMENTIN 875-125 MG ORAL TABLET 1 po BID x 10 days 16/03/22 AMOXICILLIN-POT CLAVULANATE 37904428086 No Longer Active Elise Garcia APRN Active TERBINAFINE HCL 250 MG ORAL TABLET 1 qDay for nail fungus 7 TERBINAFINE HCL 08707417639 No Longer Active Carlton Hu MD A ctive AMOXICILLIN 500 MG ORAL CAPSULE 1 cap by mouth three times a day AMOXICILLIN 53224398230 No Longer Active Carlton Hu MD Active ELMIRON 100 MG ORAL CAPSULE 2 tablets in the am and 1 tablet at hs PENTOSAN POLYSULFATE SODIUM 41384367043 No Longer Active Robert Hu MD Active MUCINEX D 60-600 MG ORAL TABLET EXTENDED RELEASE 12 HOUR 1 t ab po q am PSEUDOEPHEDRINE-GUAIFENESIN 97507418173 No Longer Act nael Carlton Hu MD Active MUCINEX DM MAXIMUM STRENGTH 60-1200 MG ORAL TABLET EXT ENDED RELEASE 12 HOUR 1 tab po q am DEXTROMETHORPHAN-GUAIFENESIN 85266548921 No Longer Active Carlton Hu MD Active TUSSIONEX PENNKINETIC ER 10-8 MG/5ML ORAL SUSPENSION E XTENDED RELEASE 5ml po q12hr PRN Cough HYDROCOD POLST-CHLORPHEN POLST 5 9906704480 No Longer Active Carlton Hu MD Active POTASSIUM CHLORIDE ER 20 MEQ ORAL TABLET EXTENDED RELE ASE Take 1 by mouth 4 times daily for 7 days POTASSIUM CHLORIDE 86269661209 No Longer Active Carlton Hu MD Active ZITHROMAX 250 MG ORAL TABLET 2 po today, then 1 po q days 2-5 20 14/09/04 AZITHROMYCIN 15285745819 No Longer Active Elise Garcia APRN Active TUSSIONEX PENNKINETIC ER 10-8 MG/5ML ORAL SUSPENSION E XTENDED RELEASE 5 ml twice a day as needed for cough HYDROCOD POLST-CHLORPH EN POLST 42979292376 No Longer Active Elise Garcia APRN Active MONTELUKAST SODIUM 10 MG ORAL TABLET 1 po daily for Allergy MONTELUKAST SODIUM 15242785101 Active Carlton uH MD Ac tive TUSSIONEX PENNKINETIC ER 10-8 MG/5ML ORAL SUSPENSION E XTENDED RELEASE 5ml po q12hr PRN Cough HYDROCOD POLST-CHLORPHEN POLST 5 6285235366 No Longer Active Hugo Restrepo MD Active LYRICA 100 MG ORAL CAPSULE Take 1 tab po BID for fibromyalgia 20 11/08/21 PREGABALIN 43248131332 No Longer Active Elise Garcia APRN A ctive PREDNISONE 20 MG ORAL TABLET 2 tabs daily for 3 days, 1 tab daily for 3 days, 1/2 tab daily for 2 days PREDNISONE 51456035302 No Longer Active Diya De Guzman APRN Active TUSSIONEX PENNKINETIC ER 10-8 MG/5ML ORAL SUSPENSION E XTENDED RELEASE 5 mL PO q 12 hrs PRN cough HYDROCOD POLST-CHLORPHEN POLST 301431 54215 No Longer Active Diya De Guzman APRN Active FLUTICASONE PROPIONATE 50 MCG/ACT NASAL SUSPENSION 2 s prays each nostril daily until bottle is empty FLUTICASONE PROPIONATE 571075547 99 No Longer Active Jillina Cesarl [employer] SAL[employer]IATE Active ASMANEX 60 METERED DOSES 220 MCG/INH INHALATION AEROSO L POWDER BREATH ACTIVATED 1 puff bid with rinse after MOMETASONE FUROATE 4815717 4102 No Longer Active Astridina Gege [employer] SALES 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 ZITHROMAX Z-REYNA 250 MG ORAL TABLET 2 today, then 1 daily for 4 d ays AZITHROMYCIN 53351231568 No Longer Active Elise Garcia APRN Active TUSSIONEX PENNKINETIC ER 10-8 MG/5ML ORAL SUSPENSION E XTENDED RELEASE 5ml po q12hr PRN Cough HYDROCOD POLST-CHLORPHEN POLST 5 9831677157 No Longer Active Elise Garcia APRN Active PREDNISONE 20 MG ORAL TABLET 2 tabs daily for 3 days, 1 tab daily for 3 days, 1/2 tab daily for 2 days PREDNISONE 64448538401 No Longer Active Diya De Guzman APRN Active AMOXICILLIN 500 MG ORAL CAPSULE 2 po BID x 10 days 201 09/29/08 AMOXICILLIN 08194045870 No Longer Active Diya De Guzman APRN Act nael SINGULAIR 10 MG ORAL TABLET 1 po qday for allergies 20 14/01/12 MONTELUKAST SODIUM 37993086527 No Longer Active Carlton Hu MD Active LEVAQUIN 500 MG ORAL TABLET 1 tablet by mouth daily 20 13/09/24 LEVOFLOXACIN 52398117161 No Longer Active Carlton Hu MD Acti ve FLUTICASONE PROPIONATE 50 MCG/ACT NASAL SUSPENSION 2 s prays each nostril daily for 2 weeks, then 1 spray each nostril daily. FLUTICASONE PROPIONATE 69232628684 Active Carlton Hu MD Active ZITHROMAX 250 MG ORAL TABLET 2 po today, then 1 po q days 2-5 20 13/08/10 AZITHROMYCIN 89756815645 No Longer Active Elise Naldoseema KHAN Active CEFDINIR 300 MG ORAL CAPSULE 1 po BID x 10 days CEFDINIR 90880862305 No Longer Active Carlton Hu MD Active ZOCOR 40 MG ORAL TABLET 1 tab by mouth daily SI MVASTATIN 40708111337 No Longer Active Carlton Hu MD Active CYCLOBENZAPRINE HCL 10 MG ORAL TABLET 1 tablet by mouth BID prn had pain CYCLOBENZAPRINE HCL 97651346754 No Longer Active Jayden Hu MD Active LEVOFLOXACIN 500 MG ORAL TABLET 1 tab PO daily x 10 days LEVOFLOXACIN 47096349820 No Longer Active Carlton Hu MD Acti ve PREDNISONE 20 MG ORAL TABLET 3 tab PO qd x 2d, 2 tab P O qd x 2d, 1 tab PO qd x 2d, 1/2 tab PO qd x 2d PREDNISONE 53315432807 No Lo nger Active Carlton Hu MD Active FLUTICASONE PROPIONATE 50 MCG/ACT NASAL SUSPENSION 1 t o 2 sprays each nostril daily FLUTICASONE PROPIONATE 45807470322 No Longer Ac tive Blaine HERNANDEZ Active CHERATUSSIN AC 100-10 MG/5ML ORAL SYRUP 1 tsp by mouth every 4 hours as needed for cough GUAIFENESIN-CODEINE 04943305749 No Longe r Active Blaine HERNANDEZ Active PROMETHAZINE-CODEINE 6.25-10 MG/5ML ORAL SYRUP 1 tsp b y mouth every 6 hours if needed for cough PROMETHAZINE-CODEINE 32220970080 No Longer Active Blaine HERNANDEZ Active CHERATUSSIN AC 100-10 MG/5ML ORAL SYRUP 1 tsp by mouth every 4 hours as needed for cough GUAIFENESIN-CODEINE 70381677275 No Longe r Active Blaine HERNANDEZ Active ZITHROMAX Z-REYNA 250 MG ORAL TABLET 2 today, then 1 daily for 4 d ays AZITHROMYCIN 45117825579 No Longer Active Columba Raida Act nael ZITHROMAX 250 MG ORAL TABLET 2 po today, then 1 po q days 2-5 20 14/03/21 AZITHROMYCIN 12161604905 No Longer Active Carlton Hu MD Active ZITHROMAX Z-REYNA 250 MG ORAL TABLET 2 today, then 1 daily for 4 d ays AZITHROMYCIN 66820722473 No Longer Active Columba Raida Act nael AUGMENTIN 875-125 MG ORAL TABLET 1 po BID x 10 days 13/01/20 AMOXICILLIN-POT CLAVULANATE 53192836344 No Longer Active Diya De Guzman APRN Active ZITHROMAX 250 MG ORAL TABLET 2 po today, then 1 po q days 2-5 12/08/14 AZITHROMYCIN 32067231728 No Longer Active Carlton Hu MD Active PREMARIN 0.625 MG ORAL TABLET TAKE 1 TAB BY MOUTH DAILY ESTROGENS CONJUGATED 28992032523 No Longer Active Ridge Bess DO A ctive CYMBALTA 30 MG ORAL CAPSULE DELAYED RELEASE PARTICLES 1 cap by mouth daily DULOXETINE HCL 52981474995 No Longer Active Ridge tam DO Active AMOXICILLIN 500 MG ORAL CAPSULE 1 tab by mouth 3 times daily x 10 days AMOXICILLIN 26129060780 No Longer Active Carlton bustamante MD Active AMOXICILLIN 500 MG ORAL CAPSULE 1 tab by mouth 3 times daily x 10 days AMOXICILLIN 18910270556 No Longer Active Carlton bustamante MD Active PROMETHAZINE-CODEINE 6.25-10 MG/5ML ORAL SYRUP 1 tsp b y mouth every 8 hours prn cough PROMETHAZINE-CODEINE 22465191341 No Longer Acti ve Carlton Hu MD Active MEDROL 4 MG ORAL TABLET THERAPY PACK 6 pills x 1 day, then 5 pills x 1 day then 4 pills x 1 day, then 3 pills x 1 day, then 2 pills x 1 day, then 1 pill x 1 day, then stop METHYLPREDNISOLONE 26813344372 No Long er Active Perez Mora MD Active AZITHROMYCIN 250 MG ORAL TABLET 2 po qd x 1 day, then 1 po q d x 4 days AZITHROMYCIN 53468399724 No Longer Active Perez Ambriz MD Active SYMBICORT 160-4.5 MCG/ACT INHALATION AEROSOL 2 puffs bid wit h rinse after BUDESONIDE-FORMOTEROL FUMARATE 13519521101 N o Longer Active Perez Mora MD Active LYRICA 75 MG ORAL CAPSULE TAKE 1 CAPSULE BY MOUTH TWICE DAILY PREGABALIN 09617549864 No Longer Active Carlton Hu MD Acti ve TOPAMAX 25 MG ORAL TABLET 1 qHS x 1 week, then 1 BID x 1 week, then 1 qAM and 2 qHS x 1 week, then 2 BID (migraine prevention) T OPIRAMATE 92899288072 No Longer Active Jerica FUENTES Active TOPAMAX 50 MG ORAL TABLET take 1 tab po BID for migraines. 07/02 TOPIRAMATE 36031265421 No Longer Active Jerica FUENTES Active TRIAMCINOLONE ACETONIDE 0.1 % EXTERNAL CREAM apply three roger es daily prn rash TRIAMCINOLONE ACETONIDE 31829211304 No Longer Active Cralton Hu MD Active PAXIL 40 MG ORAL TABLET take 1 tab po qday for depression 0 PAROXETINE HCL 83262695529 Active Carlton Hu MD Active CHERATUSSIN AC 100-10 MG/5ML ORAL SYRUP 5ml po q6hr PRN Cough 20 13/04/14 GUAIFENESIN-CODEINE 64449635498 No Longer Active Carlton Hu MD Active MEDROL 4 MG ORAL TABLET THERAPY PACK 6 tabs on day 1, 5 tabs on day 2, 4 tabs on day 3, 3 tabs on day 4, 2 tabs on day 5, 1 tab on day 6 2013 METHYLPREDNISOLONE 69319726033 No Longer Active Perez Mora MD Active AZITHROMYCIN 250 MG ORAL TABLET 2 po qd x 1 day, then 1 po q d x 4 days AZITHROMYCIN 07095089297 No Longer Active Perez Ambriz MD Active PROPRANOLOL HCL 60 MG ORAL TABLET 1 PO Q D PROPRANOLOL HCL 48388744659 No Longer Active Perez Mora MD Activ e CHERATUSSIN AC 100-10 MG/5ML ORAL SYRUP take one tsp po Q 6h ours prn cough GUAIFENESIN-CODEINE 75222655713 No Longer Active Zia Mora MD Active AUGMENTIN 875-125 MG ORAL TABLET 1 tab by mouth twice daily with food AMOXICILLIN-POT CLAVULANATE 48645008226 No Longer Act nael Perez Mora MD Active CHERATUSSIN AC 100-10 MG/5ML ORAL SYRUP 1 tsp by mouth every 4 hours as needed for cough GUAIFENESIN-CODEINE 64892036200 No Longe r Active Hugo Restrepo MD Active ACETAMINOPHEN-CODEINE #3 300-30 MG ORAL TABLET 1 PO Q 4-6 HRS OK N PAIN ACETAMINOPHEN-CODEINE 69680295866 No Longer Active Hugo Restrepo MD Active LEVAQUIN 500 MG ORAL TABLET take one po QD LEVO FLOXACIN 69860130073 No Longer Active Griffin HERNANDEZ Active PREDNISONE 20 MG ORAL TABLET Take 3 tabs daily for 3 d ays, 2 tabs daily for 3 days, 1 tab daily for 3 days, 1/2 tab daily for 3 days 11/07 PREDNISONE 59296273392 No Longer Active Carlton Hu MD Acti ve AVELOX 400 MG ORAL TABLET 1 tab by mouth daily MOXIFLOXACIN HCL 63478038807 No Longer Active Carlton Hu MD Active CHERATUSSIN AC 100-10 MG/5ML ORAL SYRUP 1 tsp by mouth every 4 hours as needed for cough GUAIFENESIN-CODEINE 77251634221 No Longe r Active Hugo Restrepo MD Active AVELOX 400 MG ORAL TABLET 1 tab by mouth daily MOXIFLOXACIN HCL 78394536161 No Longer Active Marcy De La Rosa MD PhD Active TERBINAFINE HCL 250 MG ORAL TABLET 1 qDay T ERBINAFINE HCL 15063479214 No Longer Active Marcy De La Rosa MD PhD Active CHERATUSSIN AC 100-10 MG/5ML ORAL SYRUP 1 tsp by mouth every 4 hours as needed for cough GUAIFENESIN-CODEINE 34636306354 No Longe r Active Marcy De La Rosa MD PhD Active AVELOX 400 MG ORAL TABLET 1 tab by mouth daily MOXIFLOXACIN HCL 28244174177 No Longer Active Marcy De La Rosa MD PhD Active HYDROCODONE-ACETAMINOPHEN 5-325 MG ORAL TABLET 1 po q 6hr PRN co ugh HYDROCODONE-ACETAMINOPHEN 46001615916 No Longer Active Marcy De La Rosa MD PhD Active PREDNISONE 20 MG ORAL TABLET 2 tabs daily for 3 days, 1 tab daily for 3 days, 1/2 tab daily for 2 days PREDNISONE 90312995523 No Longer Active Carlton Hu MD Active CEFDINIR 300 MG ORAL CAPSULE by mouth twice a day 2011 CEFDINIR 33398553397 No Longer Active Carlton Hu MD Acti ve ACETAMINOPHEN-CODEINE #3 300-30 MG ORAL TABLET 1 tablet po q 4-6 hrs prn pain ACETAMINOPHEN-CODEINE 25422187547 No Longer Active Ridge Bess DO Active ZITHROMAX 250 MG ORAL TABLET 2 po today, then 1 po q days 2-5 20 03/07/07 AZITHROMYCIN 25766899517 No Longer Active Carlton Hu MD Active CHERATUSSIN AC 100-10 MG/5ML ORAL SYRUP take 1 tsp po q4-6 h ours prn cough GUAIFENESIN-CODEINE 01810648072 No Longer Active Jayden Hu MD Active ACETAMINOPHEN-CODEINE #3 300-30 MG ORAL TABLET 1 PO Q 4-6 HR PRN PAIN ACETAMINOPHEN-CODEINE 94169681118 No Longer Active Arnol Hu MD Active LORTAB 7.5-500 MG/15ML ORAL ELIXIR 7.5 ml po q 4 hour prn cough HYDROCODONE-ACETAMINOPHEN 21518256141 No Longer Active Carlton Hu MD Active PREDNISONE 20 MG ORAL TABLET 1 po bid 3 days, then 1 po q day 3 days PREDNISONE 37378552342 No Longer Active Carlton Hu MD Active CEFDINIR 300 MG ORAL CAPSULE by mouth twice a day 2011 CEFDINIR 93229142543 No Longer Active Carlton Hu MD Acti ve CEFDINIR 300 MG ORAL CAPSULE by mouth twice a day 2010 CEFDINIR 07364496056 No Longer Active Carlton Hu MD Acti ve CEFDINIR 300 MG ORAL CAPSULE by mouth twice a day 2010 CEFDINIR 77654914765 No Longer Active Carlton Hu MD Acti ve TESSALON PERLES 100 MG ORAL CAPSULE 1 tablet by mouth 3 times daily as needed for cough BENZONATATE 21366737497 No Longer Active Carlton Hu MD Active CEFDINIR 300 MG ORAL CAPSULE by mouth twice a day 2010 CEFDINIR 22057478081 No Longer Active Carlton Hu MD Acti ve ZITHROMAX Z-REYNA 250 MG ORAL TABLET 2 today, then 1 daily for 4 d ays AZITHROMYCIN 83829021924 No Longer Active Hugo Restrepo MD Active TESSALON PERLES 100 MG ORAL CAPSULE 1 tablet by mouth 3 times daily as needed for cough TESSALON PERLES 100 MG ORAL CAPSULE 16305 7 BENZONATATE Inactive PREDNISONE 20 MG ORAL TABLET 1 po bid 3 days, then 1 po q day 3 days PREDNISONE 20 MG ORAL TABLET 827881 PREDNISONE [place] ctive LORTAB 7.5-500 MG/15ML ORAL ELIXIR 7.5 ml po q 4 hour prn cough LORTAB 7.5-500 MG/15ML ORAL ELIXIR HYDROCODONE-A CETAMINOPHEN Inactive ACETAMINOPHEN-CODEINE #3 300-30 MG ORAL TABLET 1 PO Q 4-6 HR PRN PAIN ACETAMINOPHEN-CODEINE #3 300-30 MG ORAL TABLET 9 64967 ACETAMINOPHEN-CODEINE Inactive CHERATUSSIN AC 100-10 MG/5ML ORAL SYRUP take 1 tsp po q4-6 h ours prn cough CHERATUSSIN AC 100-10 MG/5ML ORAL SYRUP 910617 GUAIFENESIN-CODEINE Inactive ACETAMINOPHEN-CODEINE #3 300-30 MG ORAL TABLET 1 tablet po q 4-6 hrs prn pain ACETAMINOPHEN-CODEINE #3 300-30 MG ORAL TABLET 447605 ACETAMINOPHEN-CODEINE Inactive HYDROCODONE-ACETAMINOPHEN 5-325 MG ORAL TABLET 1 po q 6hr PRN co ugh HYDROCODONE-ACETAMINOPHEN 5-325 MG ORAL TABLET 737913 HYDROCODONE-ACETAMINOPHEN Inactive AVELOX 400 MG ORAL TABLET 1 tab by mouth daily AVELOX 400 MG ORAL TABLET MOXIFLOXACIN HCL Inactive CHERATUSSIN AC 100-10 MG/5ML ORAL SYRUP 1 tsp by mouth every 4 hours as needed for cough CHERATUSSIN AC 100-10 MG/5ML ORAL SYRUP 9 37831 GUAIFENESIN-CODEINE Inactive TERBINAFINE HCL 250 MG ORAL TABLET 1 qDay 07/08 TERBINAFINE HCL 250 MG ORAL TABLET 232713 TERBINAFINE HCL Inactive CHERATUSSIN AC 100-10 MG/5ML ORAL SYRUP 1 tsp by mouth every 4 hours as needed for cough CHERATUSSIN AC 100-10 MG/5ML ORAL SYRUP 9 67703 GUAIFENESIN-CODEINE Inactive ACETAMINOPHEN-CODEINE #3 300-30 MG ORAL TABLET 1 PO Q 4-6 HRS OK N PAIN ACETAMINOPHEN-CODEINE #3 300-30 MG ORAL TABLET 741659 ACETAMINOPHEN-CODEINE Inactive CHERATUSSIN AC 100-10 MG/5ML ORAL SYRUP 1 tsp by mouth every 4 hours as needed for cough CHERATUSSIN AC 100-10 MG/5ML ORAL SYRUP 9 84584 GUAIFENESIN-CODEINE Inactive AUGMENTIN 875-125 MG ORAL TABLET 1 tab by mouth twice daily with food AUGMENTIN 875-125 MG ORAL TABLET AMOXICIL MADELINE-POT CLAVULANATE Inactive CHERATUSSIN AC 100-10 MG/5ML ORAL SYRUP take one tsp po Q 6h ours prn cough CHERATUSSIN AC 100-10 MG/5ML ORAL SYRUP 891003 GUAIFENESIN-CODEINE Inactive PROPRANOLOL HCL 60 MG ORAL TABLET 1 PO Q D PROPRANOLOL HCL 60 MG ORAL TABLET 813250 PROPRANOLOL HCL Inactive TOPAMAX 50 MG ORAL TABLET take 1 tab po BID for migraines. 07/02 TOPAMAX 50 MG ORAL TABLET 506005 TOPIRAMATE Inacti ve TOPAMAX 25 MG ORAL TABLET 1 qHS x 1 week, then 1 BID x 1 week, then 1 qAM and 2 qHS x 1 week, then 2 BID (migraine prevention) TOPAMAX 25 MG ORAL TABLET 167825 TOPIRAMATE Inactive LYRICA 75 MG ORAL CAPSULE TAKE 1 CAPSULE BY MOUTH TWICE DAILY LYRICA 75 MG ORAL CAPSULE 158752 PREGABALIN Inactive SYMBICORT 160-4.5 MCG/ACT INHALATION AEROSOL 2 puffs bid wit h rinse after SYMBICORT 160-4.5 MCG/ACT INHALATION AEROSOL 124 6304 BUDESONIDE-FORMOTEROL FUMARATE Inactive PROMETHAZINE-CODEINE 6.25-10 MG/5ML ORAL SYRUP 1 tsp b y mouth every 8 hours prn cough PROMETHAZINE-CODEINE 6.25-10 MG/ 5ML ORAL SYRUP 437279 PROMETHAZINE-CODEINE Inactive CYMBALTA 30 MG ORAL CAPSULE DELAYED RELEASE PARTICLES 1 cap by mouth daily CYMBALTA 30 MG ORAL CAPSULE DELAYED RELE ASE PARTICLES 835136 DULOXETINE HCL Inactive PREMARIN 0.625 MG ORAL TABLET TAKE 1 TAB BY MOUTH DAILY PREMARIN 0.625 MG ORAL TABLET ESTROGENS CONJUGATED Inactive CHERATUSSIN AC 100-10 MG/5ML ORAL SYRUP 1 tsp by mouth every 4 hours as needed for cough CHERATUSSIN AC 100-10 MG/5ML ORAL SYRUP 9 31593 GUAIFENESIN-CODEINE Inactive PROMETHAZINE-CODEINE 6.25-10 MG/5ML ORAL SYRUP 1 tsp b y mouth every 6 hours if needed for cough PROMETHAZINE-CODEINE 6.25-10 MG/5ML ORAL SYRUP 627061 PROMETHAZINE-CODEINE Inactive CHERATUSSIN AC 100-10 MG/5ML ORAL SYRUP 1 tsp by mouth every 4 hours as needed for cough CHERATUSSIN AC 100-10 MG/5ML ORAL SYRUP 9 94384 GUAIFENESIN-CODEINE Inactive FLUTICASONE PROPIONATE 50 MCG/ACT NASAL SUSPENSION 1 t o 2 sprays each nostril daily FLUTICASONE PROPIONATE 50 MCG/AC T NASAL SUSPENSION 1728449 FLUTICASONE PROPIONATE Inactive PREDNISONE 20 MG ORAL TABLET 3 tab PO qd x 2d, 2 tab P O qd x 2d, 1 tab PO qd x 2d, 1/2 tab PO qd x 2d PREDNISONE 20 MG ORAL TAB LET 689561 PREDNISONE Inactive LEVOFLOXACIN 500 MG ORAL TABLET 1 tab PO daily x 10 days LEVOFLOXACIN 500 MG ORAL TABLET 446464 LEVOFLOXACIN Inactive CYCLOBENZAPRINE HCL 10 MG ORAL TABLET 1 tablet by mouth BID prn had pain CYCLOBENZAPRINE HCL 10 MG ORAL TABLET 592171 CYCLOBENZAPRINE HCL Inactive ZOCOR 40 MG ORAL TABLET 1 tab by mouth daily 4 ZOCOR 40 MG ORAL TABLET 326985 SIMVASTATIN Inactive TUSSIONEX PENNKINETIC ER 10-8 MG/5ML [...] FLUTICASONE PROPIO EFE 50 MCG/ACT NASAL SUSPENSION [id number] FLUTICASONE PROPIONATE Inactive TUSSIONEX PENNKINETIC ER 10-8 MG/5ML ORAL SUSPENSION E XTENDED RELEASE 5 mL PO q 12 hrs PRN cough TUSSIONEX PENNKINETI C ER 10-8 MG/5ML ORAL SUSPENSION EXTENDED RELEASE HYDROCOD POLST-CHLORPHEN POLST I nactive LYRICA 100 MG ORAL CAPSULE Take 1 tab po BID for fibromyalgia 20 11/08/21 LYRICA 100 MG ORAL CAPSULE 530269 PREGABALIN Inact nael TUSSIONEX PENNKINETIC ER 10-8 [...] three days PREDNISONE 20 MG ORAL TABLET 354657 PREDNIS ONE Inactive PROAIR HFA 108 (90 BASE) MCG/ACT INHALATION AEROSOL SO LUTION 2 puffs four times a day as needed PROAIR HFA 108 (90 B ASE) MCG/ACT INHALATION AEROSOL SOLUTION ALBUTEROL SULFATE Inactive PREDNISONE 20 MG ORAL TABLET two tabs by mouth today, then one tab by mouth days two and three and four PREDNISONE 20 MG ORAL TAB LET 307681 PREDNISONE Inactive TUSSIONEX PENNKINETIC ER 10-8 MG/5ML [...] bid 04/20 TOPAMAX 100 MG ORAL TABLET 19971106 TOPIRAMATE Inactive CYMBALTA 30 MG ORAL CAPSULE DELAYED RELEASE PARTICLES 1 cap by mouth daily for depression CYMBALTA 30 MG ORAL CAPSULE DELAYED RELEASE PARTICLES 493466 DULOXETINE HCL Inactive TYLENOL WITH CODEINE #3 300-30 MG ORAL TABLET 1-2 po q6hr PRN Pa in TYLENOL WITH CODEINE #3 300-30 MG ORAL TABLET 088728 ACETAMINOPHEN-CODEINE Inactive TYLENOL WITH CODEINE #3 300-30 MG ORAL TABLET TYLENOL WITH CODEINE #3 300-30 MG ORAL TABLET 045915 ACETAMINOPHEN-CODEINE Inactive TRIAMCINOLONE ACETONIDE 0.1 % EXTERNAL CREAM apply bid spari ngly to rash TRIAMCINOLONE ACETONIDE 0.1 % EXTERNAL CREAM 101 4314 TRIAMCINOLONE ACETONIDE Inactive ZITHROMAX Z-REYNA 250 MG ORAL TABLET 2 today, then 1 daily for 4 d ays ZITHROMAX Z-REYNA 250 MG ORAL TABLET 088767 AZITHROMYCIN Inactive CEFDINIR 300 MG ORAL CAPSULE by mouth twice a day 2010 CEFDINIR 300 MG ORAL CAPSULE 484151 CEFDINIR Inactive CEFDINIR 300 MG ORAL CAPSULE by mouth twice a day 2010 CEFDINIR 300 MG ORAL CAPSULE 193168 CEFDINIR Inactive CEFDINIR 300 MG ORAL CAPSULE by mouth twice a day 2010 CEFDINIR 300 MG ORAL CAPSULE 493659 CEFDINIR Inactive CEFDINIR 300 MG ORAL CAPSULE by mouth twice a day 2011 CEFDINIR 300 MG ORAL CAPSULE 806122 CEFDINIR Inactive ZITHROMAX 250 MG ORAL TABLET 2 po today, then 1 po q days 2-5 20 03/07/07 ZITHROMAX 250 MG ORAL TABLET 041321 AZITHROMYCIN [place] [facility] CEFDINIR 300 MG ORAL CAPSULE by mouth twice a day 2011 CEFDINIR 300 MG ORAL CAPSULE 20020704 CEFDINIR Inactive PREDNISONE 20 MG ORAL TABLET 2 tabs daily for 3 days, 1 tab daily for 3 days, 1/2 tab daily for 2 days PREDNISONE 20 MG ORAL T ABLET 132660 PREDNISONE Inactive AVELOX 400 MG ORAL TABLET [...] days 11/07 PREDNISONE 20 MG ORAL TABLET 127359 PREDNISONE Inactive LEVAQUIN 500 MG ORAL TABLET take one po QD LEVAQUIN 500 MG ORAL TABLET 664765 LEVOFLOXACIN Inactive AZITHROMYCIN 250 MG ORAL TABLET 2 po qd x 1 day, then 1 po q d x 4 days AZITHROMYCIN 250 MG ORAL TABLET 841403 AZITHROMY GIOVANNI Inactive MEDROL 4 MG ORAL TABLET THERAPY PACK 6 tabs on day 1, 5 tabs on day 2, 4 tabs on day 3, 3 tabs on day 4, 2 tabs on day 5, 1 tab on day 6 2013 MEDROL 4 MG ORAL TABLET THERAPY PACK 236652 METHYLPREDNISOLONE [place] [facility] CHERATUSSIN AC 100-10 MG/5ML ORAL SYRUP 5ml po q6hr PRN Cough 20 13/04/14 CHERATUSSIN AC 100-10 MG/5ML ORAL SYRUP 571611 GUAIFENE SIN-CODEINE Inactive TRIAMCINOLONE ACETONIDE 0.1 % EXTERNAL CREAM apply three roger es daily prn rash TRIAMCINOLONE ACETONIDE 0.1 % EXTERNAL CREAM 101 4314 TRIAMCINOLONE ACETONIDE Inactive AZITHROMYCIN 250 MG ORAL TABLET 2 po qd x 1 day, then 1 po q d x 4 days AZITHROMYCIN 250 MG ORAL TABLET 701853 AZITHROMY GIOVANNI Inactive MEDROL 4 MG ORAL TABLET THERAPY PACK 6 pills x 1 day, then 5 pills x 1 day then 4 pills x 1 day, then 3 pills x 1 day, then 2 pills x 1 day, then 1 pill x 1 day, then stop MEDROL 4 MG ORAL TABLET THERAPY PACK 426007 METHYLPREDNISOLONE Inactive AMOXICILLIN 500 MG ORAL CAPSULE 1 tab by mouth 3 times daily x 10 days AMOXICILLIN 500 MG ORAL CAPSULE 398954 AMOXICILL IN Inactive AMOXICILLIN 500 MG ORAL CAPSULE 1 tab by mouth 3 times daily x 10 days AMOXICILLIN 500 MG ORAL CAPSULE 416199 AMOXICILL IN Inactive ZITHROMAX 250 MG ORAL TABLET 2 po today, then 1 po q days 2-5 20 12/08/14 ZITHROMAX 250 MG ORAL TABLET 012614 AZITHROMYCIN [place] [facility] AUGMENTIN 875-125 MG ORAL TABLET 1 po BID x 10 days 20 13/01/20 AUGMENTIN 875-125 MG ORAL TABLET AMOXICILLIN-POT CLAVULANATE Inactive ZITHROMAX Z-REYNA 250 MG ORAL TABLET 2 today, then 1 daily for 4 d ays ZITHROMAX Z-REYNA 250 MG ORAL TABLET 230795 AZITHROMYCIN Inactive ZITHROMAX 250 MG ORAL TABLET 2 po today, then 1 po q days 2-5 20 14/03/21 ZITHROMAX 250 MG ORAL TABLET 646351 AZITHROMYCIN [place] ct[facility] ZITHROMAX Z-REYNA 250 MG ORAL TABLET 2 today, then 1 daily for 4 d ays ZITHROMAX Z-REYNA 250 MG ORAL TABLET 521087 AZITHROMYCIN Inactive CEFDINIR 300 MG ORAL CAPSULE 1 po BID x 10 days 06/21 CEFDINIR 300 MG ORAL CAPSULE 20020704 CEFDINIR Inactive ZITHROMAX 250 MG ORAL TABLET 2 po today, then 1 po q days 2-5 20 13/08/10 ZITHROMAX 250 MG ORAL TABLET 676903 AZITHROMYCIN [place] ctive LEVAQUIN 500 MG ORAL TABLET 1 tablet by mouth daily 20 13/09/24 LEVAQUIN 500 MG ORAL TABLET 19971102 LEVOFLOXACIN Inactive SINGULAIR 10 MG ORAL TABLET 1 po qday for allergies 20 14/01/12 SINGULAIR 10 MG ORAL TABLET 20010504 MONTELUKAST SODIUM Inactive AMOXICILLIN 500 MG ORAL CAPSULE 2 po BID x 10 days 201 09/29/08 AMOXICILLIN 500 MG ORAL CAPSULE 931319 AMOXICILLIN Inactive PREDNISONE 20 MG ORAL TABLET 2 tabs daily for 3 days, 1 tab daily for 3 days, 1/2 tab daily for 2 days PREDNISONE 20 MG ORAL T ABLET 568818 PREDNISONE Inactive ZITHROMAX Z-REYNA 250 MG ORAL TABLET 2 today, then 1 daily for 4 d ays ZITHROMAX Z-REYNA 250 MG ORAL TABLET 616371 AZITHROMYCIN Inactive PREDNISONE 20 MG ORAL TABLET 2 tabs daily for 3 days, 1 tab daily for 3 days, 1/2 tab daily for 2 days PREDNISONE 20 MG ORAL T ABLET 260581 PREDNISONE Inactive ZITHROMAX 250 MG ORAL TABLET 2 po today, then 1 po q days 2-5 20 14/09/04 ZITHROMAX 250 MG ORAL TABLET 044792 AZITHROMYCIN [place] ctive AMOXICILLIN 500 MG ORAL CAPSULE 1 cap by mouth three times a day AMOXICILLIN 500 MG ORAL CAPSULE 237384 AMOXICILLIN Inactive TERBINAFINE HCL 250 MG ORAL TABLET 1 qDay for nail fungus 7 TERBINAFINE HCL 250 MG ORAL TABLET 679651 TERBINAFINE HCL Inact nael AUGMENTIN 875-125 MG ORAL TABLET 1 po BID x 10 days 20 16/03/22 AUGMENTIN 875-125 MG ORAL TABLET AMOXICILLIN-POT CLAVULANATE Inactive PREDNISONE 20 MG ORAL TABLET 2 po qd x 5 days PREDNISONE 20 MG ORAL TABLET 373653 PREDNISONE Inactive AZITHROMYCIN 250 MG ORAL TABLET 2 po qd x 1 day, then 1 po q d x 4 days AZITHROMYCIN 250 MG ORAL TABLET 354830 AZITHROMY GIOVANNI Inactive PREDNISONE 50 MG ORAL TABLET Take 50 mg dialy for 6 day s 7 PREDNISONE 50 MG ORAL TABLET 551267 PREDNISONE Inactive AUGMENTIN 875-125 MG ORAL TABLET 1 po BID x 10 days 20 18/04/16 AUGMENTIN 875-125 MG ORAL TABLET AMOXICILLIN-POT CLAVULANATE Inactive DOXYCYCLINE HYCLATE 100 MG ORAL CAPSULE 1 cap by mouth twice latasha ly DOXYCYCLINE HYCLATE 100 MG ORAL CAPSULE 5471585 DOXYCYCL INE HYCLATE Inactive PREDNISONE 20 MG ORAL TABLET Take 2 tabs day 1 and 2 and 1 t ab days 3 and 4 PREDNISONE 20 MG ORAL TABLET 944830 PREDNISONE Inactive AMOXICILLIN 500 MG ORAL CAPSULE 1 cap by mouth twice daily 10/21 AMOXICILLIN 500 MG ORAL CAPSULE 943548 AMOXICILLIN Inactive TRIAMCINOLONE ACETONIDE 0.1 % EXTERNAL OINTMENT Apply to affected areas TID PRN Rash/Itching for up 2 weeks TRIAMCINOLON E ACETONIDE 0.1 % EXTERNAL OINTMENT 6881255 TRIAMCINOLONE ACETONIDE Inactive ACYCLOVIR 800 MG ORAL TABLET 1 po 5 times daily x 7 days ACYCLOVIR 800 MG ORAL TABLET 213374 ACYCLOVIR Inactive AMOXICILLIN-POT CLAVULANATE 875-125 MG ORAL TABLET 1 pill by mouth twice daily AMOXICILLIN-POT CLAVULANATE 875-125 MG ORAL TABL ET 399167 AMOXICILLIN-POT CLAVULANATE Inactive Vital Signs Date Name Value Unit Range Description blood pressure, diastolic, repeated by physician 67 [...] Panel - Chemistry sodium, serum 137 mmol/L 713-477 7678/10/08 carbon dioxide, venous blood 29.9 mmol/L 21.0-32 [...] 0.50 mg/dL 0.00-1.00 cholesterol, serum 324 mg/dL 601-499 5067/10/08 triglyceride, serum, fasting 130 mg/dL 30-200 HDL [...] 50-136 Encounters Code Encounter Date Provider Facility CPT-55614 Level 3 Est. Patient 14:41:20 PLATINUM SMITH David Tin dle [facility] CPT-56493 [id number] Vst-Est Level IV 09:06:31 C ESAU Hu MD [facility] CPT-35417 Level 3 Est. Patient 14:16:41 CDT David Tin dle [facility] CPT-55039 Level 3 Est. Patient 13:57:55 CDT David Tin dle [facility] CPT-21842 Level 3 Est. Patient 16:08:07 CDT David Tin dle [facility] CPT-61735 Level 3 Est. Patient 16:53:54 CDT May haas MD [facility] CPT-34708 [id number] Vst-Est Level IV 08:41:[address] Carlton Hu MD [facility] CPT-32566 Level 3 Est. Patient 09:46:49 PLATINUM SMITH David Tin dle [facility] CPT-63715 [id number] Vst-Est Level III 11:12:16 CDT Yanet Bess DO [facility] CPT-99078 Level 3 Est. Patient 11:34:49 PLATINUM SMITH Perez Mora MD [facility] CPT-20947 Level 4 Est. Patient 09:51:32 PLATINUM SMITH Carlton rich MD [facility] CPT-00185 Level 3 Est. Patient 10:26:00 PLATINUM SMITH Elise stephenson [facility] CPT-35736 Level 3 Est. Patient 13:35:41 PLATINUM SMITH Carlton rich MD [facility] CPT-74548 Level 3 Est. Patient 10:03:52 PLATINUM SMITH Carlton rich MD [facility] CPT-10978 Level 3 Est. Patient 12:17:50 CDT Hugo Restrepo MD [facility] CPT-90664 Level 3 Est. Patient 13:42:38 CDT Elise Are ll [facility] CPT-51608 Level 3 Est. Patient 13:23:51 CDT Diya cobian [facility] CPT-31180 Level 3 Est. Patient 14:22:19 PLATINUM SMITH Diya Mariana cobian [facility] CPT-90955 Level 3 Est. Patient 10:11:46 CDT Carlton rich MD [facility] CPT-99453 Level 3 Est. Patient 17:29:43 CDT Elise Are [facility] CPT-94201 Level 3 Est. Patient 11:58:06 CDT Elise Are [facility] CPT-38131 Level 4 Est. Patient 14:36:51 CDT Carlton rich MD [facility]-48903 Level 3 Est. Patient 18:16:00 PLATINUM SMITH Blaine HERNANDEZ [facility] CPT-16629 Level 3 Est. Patient 09:45:49 PLATINUM SMITH Carlton rich MD [facility] CPT-71730 Level 3 Est. Patient 13:19:20 CDT Carlton rich MD [facility] CPT-26828 Level 3 Est. Patient 13:06:43 CDT Ridge tam DO [facility] CPT-50255 Level 3 Est. Patient 10:03:07 CDT Perez Mora MD [facility] CPT-70126 Level 3 Est. Patient 19:50:35 PLATINUM SMITH Carlton rich MD [facility] CPT-75194 Level 4 Est. Patient 18:05:01 PLATINUM SMITH Carlton rich MD [facility] CPT-17981 Level 3 Est. Patient 10:45:55 PLATINUM SMITH Hugo Restrepo MD [facility] CPT-72483 Level 3 Est. Patient 14:12:49 CDT Griffin HERNANDEZ [facility] CPT-64583 Level 3 Est. Patient 17:37:24 CDT Carlton rich MD [facility] CPT-40442 Level 3 Est. Patient 16:51:54 CDT Carlton rich MD [facility] CPT-76167 Level 3 Est. Patient 12:18:11 CDT Hugo Restrepo MD [facility] CPT-31356 Level 3 Est. Patient 11:30:25 CDT Marcy crisostomo MD PhD [facility]-11342 Level 3 Est. Patient 12:00:47 PLATINUM SMITH Carlton rich MD [facility] CPT-70557 Level 3 Est. Patient 16:31:06 PLATINUM SMITH Carlton rich MD [facility] CPT-04490 Level 3 Est. Patient 16:23:24 PLATINUM SMITH Ridge tam DO [facility] CPT-02268 Level 3 Est. Patient 12:34:12 CDT Carlton rich MD [facility] CPT-50769 Level 2 Est. Patient 15:43:33 CDT Robi armstrong MD [facility] CPT-10749 Level 4 Est. Patient 14:04:44 CDT Carlton rich MD [facility] CPT-86997 Level 3 Est. Patient 05:47:59 CDT Ridge tam [facility] CPT-47166 Level 3 Est. Patient 13:12:53 PLATINUM SMITH Carlton rich MD [facility] CPT-83929 Level 3 Est. Patient 14:26:53 CDT Hugo Restrepo MD [facility] Procedures Code Procedure Name Date Entry Date Standard Desc ription [id number] (4274F 2P) Patient Reason Influenza immu nization not administered 14:13:39 PLATINUM SMITH CPT-88191 Venipuncture Draw Fee 15:53:34 CDT CPT-000 Give Appropriate Flu Vaccine 14:14:31 CDT 2 CPT-J1040 Depo Medrol 80 mg (Methyl Prednisolone A cetate) 10:42:44 CDT CPT-J1100 Decadron 8mg (Dexamethasone) 10:42:44 CDT 2 CPT-J0696 Rocephin 1gm Inj Solr 14:32:13 CDT CPT-J1020 Depo Medrol 60 mg (Methyl Prednisolone A cetate) 14:32:13 CDT CPT-J1100 Decadron 6mg (Dexamethasone) 14:32:13 CDT 2 CPT-90199 Hip bilat min 2V w AP pelvis 13:16:20 CDT 2 CPT-22979 Pelvis only 13:07:33 CDT CPT-25676 Spec Collection and Handling Fee 11:25:12 C DT CPT-44259 Fluzone Quadrivalent Intramuscular Suspe nsion 0.5 ML 14:31:55 CDT CPT-33433 Abx/Therapy Injection 13:28:47 PLATINUM SMITH CPT-J2930 Solu Medrol 125 mg (Methyl Prednisolone Sodium Succinate) 12:00:47 PLATINUM SMITH CPT-90123 Venipuncture Draw Fee 11:33:31 CDT CPT-57537 EKG Trac and Interp 11:21:09 CDT CPT-78484 Chest 2V Frontal and Lat 11:21:09 CDT 12/15 CPT-75243 Venipuncture Draw Fee 08:02:34 CDT CPT-95064 Chest 2V Frontal and Lat 05:47:59 CDT 06/05
--- OUTSIDE RECORDS SUMMARY | 2019-10-08 08:47 | XMS REPORT | Clinical Summary ---
Author Author Caitlin, Juliana Martinez Organization [facility] Address Unknown Phone Unavailable Allergies, Adverse [...] URI 465.9 Inactive Ridge Bess DO Ac eklutna upper respiratory infections of unspecified site Body Mass Index 35.0-35.9 Adult Refinement 2017 Ridge Bess DO Body Mass Index 35.0-35.9, adult BMI 34-34.9 Refinement Cherelle Torres RN Body Mass Index 35.0-35.9, adult BMI 35-35.9 Refinement 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amisha RICEN Body Mass Index 35.0-35.9, adult BMI 34-34.9 Refinement May Vivar MD Body Mass Index 35.0-35.9, adult BMI 35-35.9 Refinement 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 BENCH SHEAR OPERATOR Body Mass Index 35.0-35.9, adult BMI 33-33.9 Active 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 BENCH SHEAR OPERATOR Body Mass Index 35.0-35.9, adult Upper respiratory infection, viral 465.9 Active 2 Perez Mora MD Acute upper respiratory infections of un specified site Obesity Class I (BMI 30-34.9) Refinement Jose Torres RN Obesity, unspecified Morbid obesity due to excess calories [facility] 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amisha RICEN Obesity, unspecified Obesity [...] nonspecific skin eruption 782.1 Active 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 BENCH SHEAR OPERATOR Rash and other nonspecific skin eruption Pharyngitis, acute / sore throat 462 Active 201 12/06/23 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 BENCH SHEAR OPERATOR Acute pharyngitis Shingles 053.9 Active 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 BENCH SHEAR OPERATOR Herpes zoster without mention of complication Allergic rhinitis, seasonal 477.0 Active Carlton Hu MD Allergic rhinitis due to pollen IBS (irritable bowel syndrome) 564.1 Active 01/06 Carlton Hu MD Irritable bowel syndrome GERD 530.81 Active Carlton Hu MD Esophageal reflux Cough, non-productive 786.2 Active David Lopes BENCH SHEAR OPERATOR Cough BRONCHITIS ICD-490 Inactive Hugo Restrepo MD [...] La Rosa MD PhD PNEUMONIA ICD-486 Inactive Maryc De La Rosa MD PhD 201 06/01/09 [...] Generic Name NDC Status Provider Patient Instruction PAROXETINE HCL 40 MG TABS TAKE 1 TABLET BY MOUTH ONCE DAILY FOR DEPRESSION PAROXETINE HCL 96874063821 Active Carlton Hu MD Active HYDROCHLOROTHIAZIDE 25 MG ORAL TABLET Take 1 tablet by mouth once daily HYDROCHLOROTHIAZIDE 47453659858 Active Carlton Hu MD Active GUAIFENESIN-CODEINE 100-10 MG/5ML ORAL SYRUP 1 tsp PO q6h PRN co ugh GUAIFENESIN-CODEINE 20131016929 Active Carlton Hu MD Active AMOXICILLIN-POT CLAVULANATE 875-125 MG ORAL TABLET 1 pill by mouth twice daily AMOXICILLIN-POT CLAVULANATE 84459002730 No Longer Act nael Lopes APRN Active DULOXETINE HCL 60 MG ORAL CAPSULE DELAYED RELEASE PART ICLES TAKE 1 CAPSULE BY MOUTH ONCE DAILY FOR PAIN AND MOOD DULOXETINE HCL 002 28068200 Active Carlton Hu MD Active TRAMADOL HCL 50 MG TABS TAKE 1 TABLET BY MOUTH THREE TIMES DAILY WITH EXTRA STRENGTH TYLENOL TRAMADOL HCL 38168488300 Active Carlton Hu MD Active ALPRAZOLAM 0.5 MG TABS TAKE 1 TABLET BY MOUTH ONCE DAILY NEEDED ALPRAZOLAM 35601667520 Active Carlton Hu MD Active GABAPENTIN 100 MG ORAL CAPSULE TAKE 1 CAPSULE BY MOUTH TWICE DAILY FOR FIBROMYALGIA GABAPENTIN 86169019868 Active Carlton Hu MD Active ELMIRON 100MG CAP TAKE 2 CAPSULES BY MOUTH IN THE MORNING AND 1 CAPSULE AT BEDTIME PENTOSAN POLYSULFATE SODIUM 83359860391 Active May Vivar MD Active TOPIRAMATE 100 MG TABS TAKE 1 TABLET BY MOUTH TWICE DAILY 1 TOPIRAMATE 57905471992 Active Carlton Hu MD Active ATORVASTATIN CALCIUM 10 MG ORAL TABLET 1 pill by mouth night ly, for cholesterol ATORVASTATIN CALCIUM 39363344506 Active Columba Parrish Active TRIAMCINOLONE ACETONIDE 0.1 % EXTERNAL CREAM apply bid spari ngly to rash TRIAMCINOLONE ACETONIDE 39409720057 No Longer Active Carlton Hu MD Active TYLENOL WITH CODEINE #3 300-30 MG ORAL TABLET ACETAMINOPHEN-CODEINE 48988054057 No Longer Active Carlton Hu MD Active TYLENOL WITH CODEINE #3 300-30 MG ORAL TABLET 1-2 po q6hr PRN Pa in ACETAMINOPHEN-CODEINE 72023798670 No Longer Active David HERNANDEZ RN Active ACYCLOVIR 800 MG ORAL TABLET 1 po 5 times daily x 7 days ACYCLOVIR 14903698368 No Longer Active David Lopes BENCH SHEAR 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 TOPAMAX 100 MG ORAL TABLET 1 by mouth twice daily TOPIRAMATE 05706229198 Active Carlton Hu MD Active TRIAMCINOLONE ACETONIDE 0.1 % EXTERNAL OINTMENT Apply to affected areas TID PRN Rash/Itching for up 2 weeks TRIAMCINOLONE ACETON KAYLA 03567695466 No Longer Active David Lopes BENCH SHEAR 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 AMOXICILLIN 500 MG ORAL CAPSULE 1 cap by mouth twice daily 10/21 AMOXICILLIN 64915377466 No Longer Active 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 BENCH SHEAR 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 CYMBALTA 30 MG ORAL CAPSULE DELAYED RELEASE PARTICLES 1 cap by mouth daily for depression DULOXETINE HCL 52871792043 No Longer Active Carlton Hu MD Active TUSSIONEX PENNKINETIC ER 10-8 MG/5ML ORAL SUSPENSION E XTENDED RELEASE 5ml po q12hr PRN Cough HYDROCOD POLST-CHLORPHEN POLST 95902250648 Active Carlton Hu MD Active PREDNISONE 20 MG ORAL TABLET Take 2 tabs day 1 and 2 and 1 t ab days 3 and 4 PREDNISONE 77565965635 No Longer Active 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 BENCH SHEAR 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 DOXYCYCLINE HYCLATE 100 MG ORAL CAPSULE 1 cap by mouth twice latasha ly DOXYCYCLINE HYCLATE 46722366474 No Longer Active 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 BENCH SHEAR 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 TOPAMAX 100 MG ORAL TABLET Take 1 tablet po bid TOPIRAMATE 73551849191 No Longer Active 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 BENCH SHEAR 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 TUSSIONEX PENNKINETIC ER 10-8 MG/5ML ORAL SUSPENSION E XTENDED RELEASE 5ml po q12hr PRN Cough HYDROCOD POLST-CHLORPHEN POLST 5 3143292660 No Longer Active 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 BENCH SHEAR 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 AUGMENTIN 875-125 MG ORAL TABLET 1 po BID x 10 days 20 18/04/16 AMOXICILLIN-POT CLAVULANATE 08629742141 No Longer Active 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 BENCH SHEAR 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 PREDNISONE 50 MG ORAL TABLET Take 50 mg dialy for 6 day s 7 PREDNISONE 10667104760 No Longer Active 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 BENCH SHEAR 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 TUSSIONEX PENNKINETIC ER 10-8 MG/5ML ORAL SUSPENSION E XTENDED RELEASE 5ml po q12hr PRN Cough HYDROCOD POLST-CHLORPHEN POLST 5 9948885005 No Longer Active Cherelle Torres RN Active PREDNISONE 20 MG ORAL TABLET two tabs by mouth today, then one tab by mouth days two and three and four PREDNISONE 90250553541 No Lo nger Active Cherelle Torres RN Active AZITHROMYCIN 250 MG ORAL TABLET 2 po qd x 1 day, then 1 po q d x 4 days AZITHROMYCIN 57168506750 No Longer Active Rigde Bess DO Active PREDNISONE 20 MG ORAL TABLET 2 po qd x 5 days P REDNISONE 67899219657 No Longer Active Perez Mora MD Active PROAIR HFA 108 (90 BASE) MCG/ACT INHALATION AEROSOL SO LUTION 2 puffs four times a day as needed ALBUTEROL SULFATE 75742026229 No Long er Active Becky Cuellar RMA Active ASPIRIN 81 MG ORAL TABLET 1 po qd ASPIRIN 88951952640 Active Carlton Hu MD Active PREDNISONE 20 MG ORAL TABLET 1 tab twice daily for 3 d ay, then one daily for three days PREDNISONE 61088890436 No Longer Active Carlton Hu MD Active AUGMENTIN 875-125 MG ORAL TABLET 1 po BID x 10 days 16/03/22 AMOXICILLIN-POT CLAVULANATE 95800424815 No Longer Active Elise Garcia APRN Active TERBINAFINE HCL 250 MG ORAL TABLET 1 qDay for nail fungus 7 TERBINAFINE HCL 71365040659 No Longer Active Carlton Hu MD A ctive AMOXICILLIN 500 MG ORAL CAPSULE 1 cap by mouth three times a day AMOXICILLIN 13373415048 No Longer Active Carlton Hu MD Active ELMIRON 100 MG ORAL CAPSULE 2 tablets in the am and 1 tablet at hs PENTOSAN POLYSULFATE SODIUM 21561494675 No Longer Active Robert Hu MD Active MUCINEX D 60-600 MG ORAL TABLET EXTENDED RELEASE 12 HOUR 1 t ab po q am PSEUDOEPHEDRINE-GUAIFENESIN 56408747458 No Longer Act nael Carlton Hu MD Active MUCINEX DM MAXIMUM STRENGTH 60-1200 MG ORAL TABLET EXT ENDED RELEASE 12 HOUR 1 tab po q am DEXTROMETHORPHAN-GUAIFENESIN 09616468806 No Longer Active Carlton Hu MD Active TUSSIONEX PENNKINETIC ER 10-8 MG/5ML ORAL SUSPENSION E XTENDED RELEASE 5ml po q12hr PRN Cough HYDROCOD POLST-CHLORPHEN POLST 5 4997838015 No Longer Active Carlton Hu MD Active POTASSIUM CHLORIDE ER 20 MEQ ORAL TABLET EXTENDED RELE ASE Take 1 by mouth 4 times daily for 7 days POTASSIUM CHLORIDE 14196548866 No Longer Active Carlton Hu MD Active ZITHROMAX 250 MG ORAL TABLET 2 po today, then 1 po q days 2-5 20 14/09/04 AZITHROMYCIN 47232638517 No Longer Active Elise Garcia APRN Active TUSSIONEX PENNKINETIC ER 10-8 MG/5ML ORAL SUSPENSION E XTENDED RELEASE 5 ml twice a day as needed for cough HYDROCOD POLST-CHLORPH EN POLST 33632240543 No Longer Active Elise Garcia APRN Active MONTELUKAST SODIUM 10 MG ORAL TABLET 1 po daily for Allergy MONTELUKAST SODIUM 90119207771 Active Carlton Hu MD Ac tive TUSSIONEX PENNKINETIC ER 10-8 MG/5ML ORAL SUSPENSION E XTENDED RELEASE 5ml po q12hr PRN Cough HYDROCOD POLST-CHLORPHEN POLST 5 6473871243 No Longer Active Hugo Restrepo MD Active LYRICA 100 MG ORAL CAPSULE Take 1 tab po BID for fibromyalgia 20 11/08/21 PREGABALIN 93080445743 No Longer Active Elise Garcia APRN A ctive PREDNISONE 20 MG ORAL TABLET 2 tabs daily for 3 days, 1 tab daily for 3 days, 1/2 tab daily for 2 days PREDNISONE 12520008341 No Longer Active Diya De Guzman APRN Active TUSSIONEX PENNKINETIC ER 10-8 MG/5ML ORAL SUSPENSION E XTENDED RELEASE 5 mL PO q 12 hrs PRN cough HYDROCOD POLST-CHLORPHEN POLST 566368 73968 No Longer Active Diya De Guzman APRN Active FLUTICASONE PROPIONATE 50 MCG/ACT NASAL SUSPENSION 2 s prays each nostril daily until bottle is empty FLUTICASONE PROPIONATE 689230291 99 No Longer Active Jillina Gege BENCH SHEAR 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 ASMANEX 60 METERED DOSES 220 MCG/INH INHALATION AEROSO L POWDER BREATH ACTIVATED 1 puff bid with rinse after MOMETASONE FUROATE 1265602 4102 No Longer Active Astridina Gege BENCH SHEAR 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 ZITHROMAX Z-REYNA 250 MG ORAL TABLET 2 today, then 1 daily for 4 d ays AZITHROMYCIN 90283296141 No Longer Active Elise Garcia APRN Active TUSSIONEX PENNKINETIC ER 10-8 MG/5ML ORAL SUSPENSION E XTENDED RELEASE 5ml po q12hr PRN Cough HYDROCOD POLST-CHLORPHEN POLST 5 3452620824 No Longer Active Elise Garcia APRN Active PREDNISONE 20 MG ORAL TABLET 2 tabs daily for 3 days, 1 tab daily for 3 days, 1/2 tab daily for 2 days PREDNISONE 90011959045 No Longer Active Diya De Guzman APRN Active AMOXICILLIN 500 MG ORAL CAPSULE 2 po BID x 10 days 201 09/29/08 AMOXICILLIN 18914591700 No Longer Active Diya De Guzman APRN Act nael SINGULAIR 10 MG ORAL TABLET 1 po qday for allergies 20 14/01/12 MONTELUKAST SODIUM 55528760349 No Longer Active Carlton Hu MD Active LEVAQUIN 500 MG ORAL TABLET 1 tablet by mouth daily 20 13/09/24 LEVOFLOXACIN 50058389346 No Longer Active Carlton Hu MD Acti ve FLUTICASONE PROPIONATE 50 MCG/ACT NASAL SUSPENSION 2 s prays each nostril daily for 2 weeks, then 1 spray each nostril daily. FLUTICASONE PROPIONATE 61296168510 Active Carlton Hu MD Active ZITHROMAX 250 MG ORAL TABLET 2 po today, then 1 po q days 2-5 20 13/08/10 AZITHROMYCIN 81688956935 No Longer Active Elise Naldoseema KHAN Active CEFDINIR 300 MG ORAL CAPSULE 1 po BID x 10 days CEFDINIR 28457161355 No Longer Active Carlton Hu MD Active ZOCOR 40 MG ORAL TABLET 1 tab by mouth daily SI MVASTATIN 41276795299 No Longer Active Carlton Hu MD Active CYCLOBENZAPRINE HCL 10 MG ORAL TABLET 1 tablet by mouth BID prn had pain CYCLOBENZAPRINE HCL 06544379467 No Longer Active Jayden Hu MD Active LEVOFLOXACIN 500 MG ORAL TABLET 1 tab PO daily x 10 days LEVOFLOXACIN 35689920385 No Longer Active Carlton Hu MD Acti ve PREDNISONE 20 MG ORAL TABLET 3 tab PO qd x 2d, 2 tab P O qd x 2d, 1 tab PO qd x 2d, 1/2 tab PO qd x 2d PREDNISONE 08203616284 No Lo nger Active Carlton Hu MD Active FLUTICASONE PROPIONATE 50 MCG/ACT NASAL SUSPENSION 1 t o 2 sprays each nostril daily FLUTICASONE PROPIONATE 41373703456 No Longer Ac tive Blaine HERNANDEZ Active CHERATUSSIN AC 100-10 MG/5ML ORAL SYRUP 1 tsp by mouth every 4 hours as needed for cough GUAIFENESIN-CODEINE 30069412674 No Longe r Active Blaine HERNANDEZ Active PROMETHAZINE-CODEINE 6.25-10 MG/5ML ORAL SYRUP 1 tsp b y mouth every 6 hours if needed for cough PROMETHAZINE-CODEINE 24087839262 No Longer Active Blaine HERNANDEZ Active CHERATUSSIN AC 100-10 MG/5ML ORAL SYRUP 1 tsp by mouth every 4 hours as needed for cough GUAIFENESIN-CODEINE 10732004926 No Longe r Active Blaine HERNANDEZ Active ZITHROMAX Z-REYNA 250 MG ORAL TABLET 2 today, then 1 daily for 4 d ays AZITHROMYCIN 32134517403 No Longer Active Columba Raida Act nael ZITHROMAX 250 MG ORAL TABLET 2 po today, then 1 po q days 2-5 20 14/03/21 AZITHROMYCIN 04996239342 No Longer Active Carlton Hu MD Active ZITHROMAX Z-REYNA 250 MG ORAL TABLET 2 today, then 1 daily for 4 d ays AZITHROMYCIN 36279568022 No Longer Active Columba Raida Act nael AUGMENTIN 875-125 MG ORAL TABLET 1 po BID x 10 days 13/01/20 AMOXICILLIN-POT CLAVULANATE 22870277520 No Longer Active Diya De Guzman APRN Active ZITHROMAX 250 MG ORAL TABLET 2 po today, then 1 po q days 2-5 12/08/14 AZITHROMYCIN 36496782699 No Longer Active Carlton Hu MD Active PREMARIN 0.625 MG ORAL TABLET TAKE 1 TAB BY MOUTH DAILY ESTROGENS CONJUGATED 95422449007 No Longer Active Ridge Bess DO A ctive CYMBALTA 30 MG ORAL CAPSULE DELAYED RELEASE PARTICLES 1 cap by mouth daily DULOXETINE HCL 36064455442 No Longer Active Ridge tam DO Active AMOXICILLIN 500 MG ORAL CAPSULE 1 tab by mouth 3 times daily x 10 days AMOXICILLIN 90732641704 No Longer Active Carlton bustamante MD Active AMOXICILLIN 500 MG ORAL CAPSULE 1 tab by mouth 3 times daily x 10 days AMOXICILLIN 28742989960 No Longer Active Carlton bustamante MD Active PROMETHAZINE-CODEINE 6.25-10 MG/5ML ORAL SYRUP 1 tsp b y mouth every 8 hours prn cough PROMETHAZINE-CODEINE 15906039357 No Longer Acti ve Carlton Hu MD Active MEDROL 4 MG ORAL TABLET THERAPY PACK 6 pills x 1 day, then 5 pills x 1 day then 4 pills x 1 day, then 3 pills x 1 day, then 2 pills x 1 day, then 1 pill x 1 day, then stop METHYLPREDNISOLONE 31409990610 No Long er Active Perez Mora MD Active AZITHROMYCIN 250 MG ORAL TABLET 2 po qd x 1 day, then 1 po q d x 4 days AZITHROMYCIN 37002945133 No Longer Active Perez Ambriz MD Active SYMBICORT 160-4.5 MCG/ACT INHALATION AEROSOL 2 puffs bid wit h rinse after BUDESONIDE-FORMOTEROL FUMARATE 49879275161 N o Longer Active Perez Mora MD Active LYRICA 75 MG ORAL CAPSULE TAKE 1 CAPSULE BY MOUTH TWICE DAILY PREGABALIN 00378550155 No Longer Active Carlton Hu MD Acti ve TOPAMAX 25 MG ORAL TABLET 1 qHS x 1 week, then 1 BID x 1 week, then 1 qAM and 2 qHS x 1 week, then 2 BID (migraine prevention) T OPIRAMATE 51401266266 No Longer Active Jerica FUENTES Active TOPAMAX 50 MG ORAL TABLET take 1 tab po BID for migraines. 07/02 TOPIRAMATE 61794250209 No Longer Active Jerica FUENTES Active TRIAMCINOLONE ACETONIDE 0.1 % EXTERNAL CREAM apply three roger es daily prn rash TRIAMCINOLONE ACETONIDE 73109760219 No Longer Active Carlton Hu MD Active PAXIL 40 MG ORAL TABLET take 1 tab po qday for depression 0 PAROXETINE HCL 88805253448 Active Carlton Hu MD Active CHERATUSSIN AC 100-10 MG/5ML ORAL SYRUP 5ml po q6hr PRN Cough 20 13/04/14 GUAIFENESIN-CODEINE 90912022252 No Longer Active Carlton Hu MD Active MEDROL 4 MG ORAL TABLET THERAPY PACK 6 tabs on day 1, 5 tabs on day 2, 4 tabs on day 3, 3 tabs on day 4, 2 tabs on day 5, 1 tab on day 6 2013 METHYLPREDNISOLONE 72261858100 No Longer Active Perez Mora MD Active AZITHROMYCIN 250 MG ORAL TABLET 2 po qd x 1 day, then 1 po q d x 4 days AZITHROMYCIN 56137796989 No Longer Active Perez Ambriz MD Active PROPRANOLOL HCL 60 MG ORAL TABLET 1 PO Q D PROPRANOLOL HCL 01156506360 No Longer Active Perez Mora MD Activ e CHERATUSSIN AC 100-10 MG/5ML ORAL SYRUP take one tsp po Q 6h ours prn cough GUAIFENESIN-CODEINE 49755684621 No Longer Active Zia Mora MD Active AUGMENTIN 875-125 MG ORAL TABLET 1 tab by mouth twice daily with food AMOXICILLIN-POT CLAVULANATE 15622460674 No Longer Act nael Perez Mora MD Active CHERATUSSIN AC 100-10 MG/5ML ORAL SYRUP 1 tsp by mouth every 4 hours as needed for cough GUAIFENESIN-CODEINE 79120908465 No Longe r Active Hugo Restrepo MD Active ACETAMINOPHEN-CODEINE #3 300-30 MG ORAL TABLET 1 PO Q 4-6 HRS FL N PAIN ACETAMINOPHEN-CODEINE 95996085719 No Longer Active Hugo Restrepo MD Active LEVAQUIN 500 MG ORAL TABLET take one po QD LEVO FLOXACIN 67111302721 No Longer Active Griffin HERNANDEZ Active PREDNISONE 20 MG ORAL TABLET Take 3 tabs daily for 3 d ays, 2 tabs daily for 3 days, 1 tab daily for 3 days, 1/2 tab daily for 3 days 11/07 PREDNISONE 32953092816 No Longer Active Carlton Hu MD Acti ve AVELOX 400 MG ORAL TABLET 1 tab by mouth daily MOXIFLOXACIN HCL 86769124601 No Longer Active Carlton Hu MD Active CHERATUSSIN AC 100-10 MG/5ML ORAL SYRUP 1 tsp by mouth every 4 hours as needed for cough GUAIFENESIN-CODEINE 58057067941 No Longe r Active Hugo Restrepo MD Active AVELOX 400 MG ORAL TABLET 1 tab by mouth daily MOXIFLOXACIN HCL 60533808613 No Longer Active Marcy De La Rosa MD PhD Active TERBINAFINE HCL 250 MG ORAL TABLET 1 qDay T ERBINAFINE HCL 53274865878 No Longer Active Marcy De La Rosa MD PhD Active CHERATUSSIN AC 100-10 MG/5ML ORAL SYRUP 1 tsp by mouth every 4 hours as needed for cough GUAIFENESIN-CODEINE 09831151959 No Longe r Active Marcy De La Rosa MD PhD Active AVELOX 400 MG ORAL TABLET 1 tab by mouth daily MOXIFLOXACIN HCL 56278667510 No Longer Active Marcy De La Rosa MD PhD Active HYDROCODONE-ACETAMINOPHEN 5-325 MG ORAL TABLET 1 po q 6hr PRN co ugh HYDROCODONE-ACETAMINOPHEN 32205408419 No Longer Active Marcy De La Rosa MD PhD Active PREDNISONE 20 MG ORAL TABLET 2 tabs daily for 3 days, 1 tab daily for 3 days, 1/2 tab daily for 2 days PREDNISONE 41739741017 No Longer Active Carlton Hu MD Active CEFDINIR 300 MG ORAL CAPSULE by mouth twice a day 2011 CEFDINIR 07833493398 No Longer Active Carlton Hu MD Acti ve ACETAMINOPHEN-CODEINE #3 300-30 MG ORAL TABLET 1 tablet po q 4-6 hrs prn pain ACETAMINOPHEN-CODEINE 29351680081 No Longer Active Ridge Bess DO Active ZITHROMAX 250 MG ORAL TABLET 2 po today, then 1 po q days 2-5 20 03/07/07 AZITHROMYCIN 24204554746 No Longer Active Carlton Hu MD Active CHERATUSSIN AC 100-10 MG/5ML ORAL SYRUP take 1 tsp po q4-6 h ours prn cough GUAIFENESIN-CODEINE 94967753938 No Longer Active Jayden Hu MD Active ACETAMINOPHEN-CODEINE #3 300-30 MG ORAL TABLET 1 PO Q 4-6 HR PRN PAIN ACETAMINOPHEN-CODEINE 35192348536 No Longer Active Arnol Hu MD Active LORTAB 7.5-500 MG/15ML ORAL ELIXIR 7.5 ml po q 4 hour prn cough HYDROCODONE-ACETAMINOPHEN 13464198496 No Longer Active Carlton Hu MD Active PREDNISONE 20 MG ORAL TABLET 1 po bid 3 days, then 1 po q day 3 days PREDNISONE 98101368255 No Longer Active Carlton Hu MD Active CEFDINIR 300 MG ORAL CAPSULE by mouth twice a day 2011 CEFDINIR 63388672780 No Longer Active Carlton Hu MD Acti ve CEFDINIR 300 MG ORAL CAPSULE by mouth twice a day 2010 CEFDINIR 31683750237 No Longer Active Carlton Hu MD Acti ve CEFDINIR 300 MG ORAL CAPSULE by mouth twice a day 2010 CEFDINIR 95366160936 No Longer Active Carlton Hu MD Acti ve TESSALON PERLES 100 MG ORAL CAPSULE 1 tablet by mouth 3 times daily as needed for cough BENZONATATE 89840539713 No Longer Active Carlton Hu MD Active CEFDINIR 300 MG ORAL CAPSULE by mouth twice a day 2010 CEFDINIR 09876375262 No Longer Active Carlton Hu MD Acti ve ZITHROMAX Z-REYNA 250 MG ORAL TABLET 2 today, then 1 daily for 4 d ays AZITHROMYCIN 88203598651 No Longer Active Hugo Restrepo MD Active TESSALON PERLES 100 MG ORAL CAPSULE 1 tablet by mouth 3 times daily as needed for cough TESSALON PERLES 100 MG ORAL CAPSULE 98816 7 BENZONATATE Inactive PREDNISONE 20 MG ORAL TABLET 1 po bid 3 days, then 1 po q day 3 days PREDNISONE 20 MG ORAL TABLET 918190 PREDNISONE [place] ctive LORTAB 7.5-500 MG/15ML ORAL ELIXIR 7.5 ml po q 4 hour prn cough LORTAB 7.5-500 MG/15ML ORAL ELIXIR HYDROCODONE-A CETAMINOPHEN Inactive ACETAMINOPHEN-CODEINE #3 300-30 MG ORAL TABLET 1 PO Q 4-6 HR PRN PAIN ACETAMINOPHEN-CODEINE #3 300-30 MG ORAL TABLET 9 37558 ACETAMINOPHEN-CODEINE Inactive CHERATUSSIN AC 100-10 MG/5ML ORAL SYRUP take 1 tsp po q4-6 h ours prn cough CHERATUSSIN AC 100-10 MG/5ML ORAL SYRUP 337284 GUAIFENESIN-CODEINE Inactive ACETAMINOPHEN-CODEINE #3 300-30 MG ORAL TABLET 1 tablet po q 4-6 hrs prn pain ACETAMINOPHEN-CODEINE #3 300-30 MG ORAL TABLET 152566 ACETAMINOPHEN-CODEINE Inactive HYDROCODONE-ACETAMINOPHEN 5-325 MG ORAL TABLET 1 po q 6hr PRN co ugh HYDROCODONE-ACETAMINOPHEN 5-325 MG ORAL TABLET 226244 HYDROCODONE-ACETAMINOPHEN Inactive AVELOX 400 MG ORAL TABLET 1 tab by mouth daily AVELOX 400 MG ORAL TABLET MOXIFLOXACIN HCL Inactive CHERATUSSIN AC 100-10 MG/5ML ORAL SYRUP 1 tsp by mouth every 4 hours as needed for cough CHERATUSSIN AC 100-10 MG/5ML ORAL SYRUP 9 33234 GUAIFENESIN-CODEINE Inactive TERBINAFINE HCL 250 MG ORAL TABLET 1 qDay 07/08 TERBINAFINE HCL 250 MG ORAL TABLET 772976 TERBINAFINE HCL Inactive CHERATUSSIN AC 100-10 MG/5ML ORAL SYRUP 1 tsp by mouth every 4 hours as needed for cough CHERATUSSIN AC 100-10 MG/5ML ORAL SYRUP 9 32577 GUAIFENESIN-CODEINE Inactive ACETAMINOPHEN-CODEINE #3 300-30 MG ORAL TABLET 1 PO Q 4-6 HRS FL N PAIN ACETAMINOPHEN-CODEINE #3 300-30 MG ORAL TABLET 752090 ACETAMINOPHEN-CODEINE Inactive CHERATUSSIN AC 100-10 MG/5ML ORAL SYRUP 1 tsp by mouth every 4 hours as needed for cough CHERATUSSIN AC 100-10 MG/5ML ORAL SYRUP 9 92203 GUAIFENESIN-CODEINE Inactive AUGMENTIN 875-125 MG ORAL TABLET 1 tab by mouth twice daily with food AUGMENTIN 875-125 MG ORAL TABLET AMOXICIL MADELINE-POT CLAVULANATE Inactive CHERATUSSIN AC 100-10 MG/5ML ORAL SYRUP take one tsp po Q 6h ours prn cough CHERATUSSIN AC 100-10 MG/5ML ORAL SYRUP 126282 GUAIFENESIN-CODEINE Inactive PROPRANOLOL HCL 60 MG ORAL TABLET 1 PO Q D PROPRANOLOL HCL 60 MG ORAL TABLET 421641 PROPRANOLOL HCL Inactive TOPAMAX 50 MG ORAL TABLET take 1 tab po BID for migraines. 07/02 TOPAMAX 50 MG ORAL TABLET 238961 TOPIRAMATE Inacti ve TOPAMAX 25 MG ORAL TABLET 1 qHS x 1 week, then 1 BID x 1 week, then 1 qAM and 2 qHS x 1 week, then 2 BID (migraine prevention) TOPAMAX 25 MG ORAL TABLET 451859 TOPIRAMATE Inactive LYRICA 75 MG ORAL CAPSULE TAKE 1 CAPSULE BY MOUTH TWICE DAILY LYRICA 75 MG ORAL CAPSULE 236836 PREGABALIN Inactive SYMBICORT 160-4.5 MCG/ACT INHALATION AEROSOL 2 puffs bid wit h rinse after SYMBICORT 160-4.5 MCG/ACT INHALATION AEROSOL 124 6304 BUDESONIDE-FORMOTEROL FUMARATE Inactive PROMETHAZINE-CODEINE 6.25-10 MG/5ML ORAL SYRUP 1 tsp b y mouth every 8 hours prn cough PROMETHAZINE-CODEINE 6.25-10 MG/ 5ML ORAL SYRUP 060844 PROMETHAZINE-CODEINE Inactive CYMBALTA 30 MG ORAL CAPSULE DELAYED RELEASE PARTICLES 1 cap by mouth daily CYMBALTA 30 MG ORAL CAPSULE DELAYED RELE ASE PARTICLES 168900 DULOXETINE HCL Inactive PREMARIN 0.625 MG ORAL TABLET TAKE 1 TAB BY MOUTH DAILY PREMARIN 0.625 MG ORAL TABLET ESTROGENS CONJUGATED Inactive CHERATUSSIN AC 100-10 MG/5ML ORAL SYRUP 1 tsp by mouth every 4 hours as needed for cough CHERATUSSIN AC 100-10 MG/5ML ORAL SYRUP 9 43813 GUAIFENESIN-CODEINE Inactive PROMETHAZINE-CODEINE 6.25-10 MG/5ML ORAL SYRUP 1 tsp b y mouth every 6 hours if needed for cough PROMETHAZINE-CODEINE 6.25-10 MG/5ML ORAL SYRUP 486138 PROMETHAZINE-CODEINE Inactive CHERATUSSIN AC 100-10 MG/5ML ORAL SYRUP 1 tsp by mouth every 4 hours as needed for cough CHERATUSSIN AC 100-10 MG/5ML ORAL SYRUP 9 09317 GUAIFENESIN-CODEINE Inactive FLUTICASONE PROPIONATE 50 MCG/ACT NASAL SUSPENSION 1 t o 2 sprays each nostril daily FLUTICASONE PROPIONATE 50 MCG/AC T NASAL SUSPENSION 8821338 FLUTICASONE PROPIONATE Inactive PREDNISONE 20 MG ORAL TABLET 3 tab PO qd x 2d, 2 tab P O qd x 2d, 1 tab PO qd x 2d, 1/2 tab PO qd x 2d PREDNISONE 20 MG ORAL TAB LET 911589 PREDNISONE Inactive LEVOFLOXACIN 500 MG ORAL TABLET 1 tab PO daily x 10 days LEVOFLOXACIN 500 MG ORAL TABLET 446648 LEVOFLOXACIN Inactive CYCLOBENZAPRINE HCL 10 MG ORAL TABLET 1 tablet by mouth BID prn had pain CYCLOBENZAPRINE HCL 10 MG ORAL TABLET 339900 CYCLOBENZAPRINE HCL Inactive ZOCOR 40 MG ORAL TABLET 1 tab by mouth daily 4 ZOCOR 40 MG ORAL TABLET 338201 SIMVASTATIN Inactive TUSSIONEX PENNKINETIC ER 10-8 MG/5ML [...] FLUTICASONE PROPIO EFE 50 MCG/ACT NASAL SUSPENSION [id number] FLUTICASONE PROPIONATE Inactive TUSSIONEX PENNKINETIC ER 10-8 MG/5ML ORAL SUSPENSION E XTENDED RELEASE 5 mL PO q 12 hrs PRN cough TUSSIONEX PENNKINETI C ER 10-8 MG/5ML ORAL SUSPENSION EXTENDED RELEASE HYDROCOD POLST-CHLORPHEN POLST I nactive LYRICA 100 MG ORAL CAPSULE Take 1 tab po BID for fibromyalgia 20 11/08/21 LYRICA 100 MG ORAL CAPSULE 751645 PREGABALIN Inact nael TUSSIONEX PENNKINETIC ER 10-8 [...] three days PREDNISONE 20 MG ORAL TABLET 114789 PREDNIS ONE Inactive PROAIR HFA 108 (90 BASE) MCG/ACT INHALATION AEROSOL SO LUTION 2 puffs four times a day as needed PROAIR HFA 108 (90 B ASE) MCG/ACT INHALATION AEROSOL SOLUTION ALBUTEROL SULFATE Inactive PREDNISONE 20 MG ORAL TABLET two tabs by mouth today, then one tab by mouth days two and three and four PREDNISONE 20 MG ORAL TAB LET 366943 PREDNISONE Inactive TUSSIONEX PENNKINETIC ER 10-8 MG/5ML [...] 30 MG ORAL CAPSULE DELAYED RELEASE PARTICLES 613298 DULOXETINE HCL Inactive TYLENOL WITH CODEINE #3 300-30 MG ORAL TABLET 1-2 po q6hr PRN Pa in TYLENOL WITH CODEINE #3 300-30 MG ORAL TABLET 425996 ACETAMINOPHEN-CODEINE Inactive TYLENOL WITH CODEINE #3 300-30 MG ORAL TABLET TYLENOL WITH CODEINE #3 300-30 MG ORAL TABLET 771484 ACETAMINOPHEN-CODEINE Inactive TRIAMCINOLONE ACETONIDE 0.1 % EXTERNAL CREAM apply bid spari ngly to rash TRIAMCINOLONE ACETONIDE 0.1 % EXTERNAL CREAM 101 4314 TRIAMCINOLONE ACETONIDE Inactive ZITHROMAX Z-REYNA 250 MG ORAL TABLET 2 today, then 1 daily for 4 d ays ZITHROMAX Z-REYNA 250 MG ORAL TABLET 968019 AZITHROMYCIN Inactive CEFDINIR 300 MG ORAL CAPSULE by mouth twice a day 2010 CEFDINIR 300 MG ORAL CAPSULE 391202 CEFDINIR Inactive CEFDINIR 300 MG ORAL CAPSULE by mouth twice a day 2010 CEFDINIR 300 MG ORAL CAPSULE 074250 CEFDINIR Inactive CEFDINIR 300 MG ORAL CAPSULE by mouth twice a day 2010 CEFDINIR 300 MG ORAL CAPSULE 876567 CEFDINIR Inactive CEFDINIR 300 MG ORAL CAPSULE by mouth twice a day 2011 CEFDINIR 300 MG ORAL CAPSULE 027247 CEFDINIR Inactive ZITHROMAX 250 MG ORAL TABLET 2 po today, then 1 po q days 2-5 20 03/07/07 ZITHROMAX 250 MG ORAL TABLET 113991 AZITHROMYCIN [place] [facility] CEFDINIR 300 MG ORAL CAPSULE by mouth twice a day 2011 CEFDINIR 300 MG ORAL CAPSULE 20020704 CEFDINIR Inactive PREDNISONE 20 MG ORAL TABLET 2 tabs daily for 3 days, 1 tab daily for 3 days, 1/2 tab daily for 2 days PREDNISONE 20 MG ORAL T ABLET 477377 PREDNISONE Inactive AVELOX 400 MG ORAL TABLET [...] days 11/07 PREDNISONE 20 MG ORAL TABLET 079281 PREDNISONE Inactive LEVAQUIN 500 MG ORAL TABLET take one po QD LEVAQUIN 500 MG ORAL TABLET 496408 LEVOFLOXACIN Inactive AZITHROMYCIN 250 MG ORAL TABLET 2 po qd x 1 day, then 1 po q d x 4 days AZITHROMYCIN 250 MG ORAL TABLET 433333 AZITHROMY GIOVANNI Inactive MEDROL 4 MG ORAL TABLET THERAPY PACK 6 tabs on day 1, 5 tabs on day 2, 4 tabs on day 3, 3 tabs on day 4, 2 tabs on day 5, 1 tab on day 6 2013 MEDROL 4 MG ORAL TABLET THERAPY PACK 295561 METHYLPREDNISOLONE [place] [facility] CHERATUSSIN AC 100-10 MG/5ML ORAL SYRUP 5ml po q6hr PRN Cough 20 13/04/14 CHERATUSSIN AC 100-10 MG/5ML ORAL SYRUP 167006 GUAIFENE SIN-CODEINE Inactive TRIAMCINOLONE ACETONIDE 0.1 % EXTERNAL CREAM apply three roger es daily prn rash TRIAMCINOLONE ACETONIDE 0.1 % EXTERNAL CREAM 101 4314 TRIAMCINOLONE ACETONIDE Inactive AZITHROMYCIN 250 MG ORAL TABLET 2 po qd x 1 day, then 1 po q d x 4 days AZITHROMYCIN 250 MG ORAL TABLET 508025 AZITHROMY GIOVANNI Inactive MEDROL 4 MG ORAL TABLET THERAPY PACK 6 pills x 1 day, then 5 pills x 1 day then 4 pills x 1 day, then 3 pills x 1 day, then 2 pills x 1 day, then 1 pill x 1 day, then stop MEDROL 4 MG ORAL TABLET THERAPY PACK 420253 METHYLPREDNISOLONE Inactive AMOXICILLIN 500 MG ORAL CAPSULE 1 tab by mouth 3 times daily x 10 days AMOXICILLIN 500 MG ORAL CAPSULE 671072 AMOXICILL IN Inactive AMOXICILLIN 500 MG ORAL CAPSULE 1 tab by mouth 3 times daily x 10 days AMOXICILLIN 500 MG ORAL CAPSULE 043068 AMOXICILL IN Inactive ZITHROMAX 250 MG ORAL TABLET 2 po today, then 1 po q days 2-5 20 12/08/14 ZITHROMAX 250 MG ORAL TABLET 347386 AZITHROMYCIN [place] [facility] AUGMENTIN 875-125 MG ORAL TABLET 1 po BID x 10 days 20 13/01/20 AUGMENTIN 875-125 MG ORAL TABLET AMOXICILLIN-POT CLAVULANATE Inactive ZITHROMAX Z-REYNA 250 MG ORAL TABLET 2 today, then 1 daily for 4 d ays ZITHROMAX Z-REYNA 250 MG ORAL TABLET 051589 AZITHROMYCIN Inactive ZITHROMAX 250 MG ORAL TABLET 2 po today, then 1 po q days 2-5 20 14/03/21 ZITHROMAX 250 MG ORAL TABLET 267248 AZITHROMYCIN [place] [facility] ZITHROMAX Z-REYNA 250 MG ORAL TABLET 2 today, then 1 daily for 4 d ays ZITHROMAX Z-REYNA 250 MG ORAL TABLET 428956 AZITHROMYCIN Inactive CEFDINIR 300 MG ORAL CAPSULE 1 po BID x 10 days 06/21 CEFDINIR 300 MG ORAL CAPSULE 20020704 CEFDINIR Inactive ZITHROMAX 250 MG ORAL TABLET 2 po today, then 1 po q days 2-5 20 13/08/10 ZITHROMAX 250 MG ORAL TABLET 011862 AZITHROMYCIN [place] [facility] LEVAQUIN 500 MG ORAL TABLET 1 tablet by mouth daily 13/09/24 LEVAQUIN 500 MG ORAL TABLET 19971102 LEVOFLOXACIN Inactive SINGULAIR 10 MG ORAL TABLET 1 po qday for allergies 20 14/01/12 SINGULAIR 10 MG ORAL TABLET 20010504 MONTELUKAST SODIUM Inactive AMOXICILLIN 500 MG ORAL CAPSULE 2 po BID x 10 days 201 09/29/08 AMOXICILLIN 500 MG ORAL CAPSULE 338590 AMOXICILLIN Inactive PREDNISONE 20 MG ORAL TABLET 2 tabs daily for 3 days, 1 tab daily for 3 days, 1/2 tab daily for 2 days PREDNISONE 20 MG ORAL T ABLET 626603 PREDNISONE Inactive ZITHROMAX Z-REYNA 250 MG ORAL TABLET 2 today, then 1 daily for 4 d ays ZITHROMAX Z-REYNA 250 MG ORAL TABLET 337902 AZITHROMYCIN Inactive PREDNISONE 20 MG ORAL TABLET 2 tabs daily for 3 days, 1 tab daily for 3 days, 1/2 tab daily for 2 days PREDNISONE 20 MG ORAL T ABLET 069581 PREDNISONE Inactive ZITHROMAX 250 MG ORAL TABLET 2 po today, then 1 po q days 2-5 20 14/09/04 ZITHROMAX 250 MG ORAL TABLET 633756 AZITHROMYCIN [place] [facility] AMOXICILLIN 500 MG ORAL CAPSULE 1 cap by mouth three times a day AMOXICILLIN 500 MG ORAL CAPSULE 109581 AMOXICILLIN Inactive TERBINAFINE HCL 250 MG ORAL TABLET 1 qDay for nail fungus 7 TERBINAFINE HCL 250 MG ORAL TABLET 561954 TERBINAFINE HCL Inact nael AUGMENTIN 875-125 MG ORAL TABLET 1 po BID x 10 days 20 16/03/22 AUGMENTIN 875-125 MG ORAL TABLET AMOXICILLIN-POT CLAVULANATE Inactive PREDNISONE 20 MG ORAL TABLET 2 po qd x 5 days PREDNISONE 20 MG ORAL TABLET 366864 PREDNISONE Inactive AZITHROMYCIN 250 MG ORAL TABLET 2 po qd x 1 day, then 1 po q d x 4 days AZITHROMYCIN 250 MG ORAL TABLET 251862 AZITHROMY GIOVANNI Inactive PREDNISONE 50 MG ORAL TABLET Take 50 mg dialy for 6 day s 7 PREDNISONE 50 MG ORAL TABLET 428518 PREDNISONE Inactive AUGMENTIN 875-125 MG ORAL TABLET 1 po BID x 10 days 20 18/04/16 AUGMENTIN 875-125 MG ORAL TABLET AMOXICILLIN-POT CLAVULANATE Inactive DOXYCYCLINE HYCLATE 100 MG ORAL CAPSULE 1 cap by mouth twice latasha ly DOXYCYCLINE HYCLATE 100 MG ORAL CAPSULE 2444417 DOXYCYCL INE HYCLATE Inactive PREDNISONE 20 MG ORAL TABLET Take 2 tabs day 1 and 2 and 1 t ab days 3 and 4 PREDNISONE 20 MG ORAL TABLET 956236 PREDNISONE Inactive AMOXICILLIN 500 MG ORAL CAPSULE 1 cap by mouth twice daily 10/21 AMOXICILLIN 500 MG ORAL CAPSULE 383033 AMOXICILLIN Inactive TRIAMCINOLONE ACETONIDE 0.1 % EXTERNAL OINTMENT Apply to affected areas TID PRN Rash/Itching for up 2 weeks TRIAMCINOLON E ACETONIDE 0.1 % EXTERNAL OINTMENT 9172791 TRIAMCINOLONE ACETONIDE Inactive ACYCLOVIR 800 MG ORAL TABLET 1 po 5 times daily x 7 days ACYCLOVIR 800 MG ORAL TABLET 248101 ACYCLOVIR Inactive AMOXICILLIN-POT CLAVULANATE 875-125 MG ORAL TABLET 1 pill by mouth twice daily AMOXICILLIN-POT CLAVULANATE 875-125 MG ORAL TABL ET 718780 AMOXICILLIN-POT CLAVULANATE Inactive Vital Signs Date Name Value Unit Range Description blood pressure, diastolic, repeated by physician 67 BP srinivasan blood pressure, diastolic 67 mm[Hg] BP srinivasan blood pressure, systolic, repeated by physician 110 BP sys blood pressure, systolic 110 mm[Hg] BP sys height E&M 53 [in_us] Bdy height pulse rate E&M 99 /min Heart rate temperature E&M 98.9 [degF] Body temp erature weight E&M 134 [lb_av] Weight Measure d blood pressure, diastolic, repeated by physician 76 BP srinivasan blood pressure, diastolic 76 mm[Hg] BP srinivasan blood pressure, systolic, repeated by physician 110 BP sys blood pressure, systolic 110 mm[Hg] BP sys height E&M 53 [in_us] Bdy height pulse rate E&M 107 /min Heart rate temperature E&M 97.5 [degF] Body temp erature weight E&M 133 [lb_av] Weight Measure d blood pressure, diastolic, repeated by physician 80 BP srinivasan blood pressure, diastolic 80 mm[Hg] BP srinivasan blood pressure, systolic, repeated by physician 122 BP sys blood pressure, systolic 122 mm[Hg] BP sys height E&M 53 [in_us] Bdy height pulse rate E&M 105 /min Heart rate temperature E&M 97.1 [degF] Body temp erature weight E&M 135.06 [lb_av] Weight Measure d blood pressure, diastolic 69 mm[Hg] BP srinivasan blood pressure, systolic 101 mm[Hg] BP sys pulse rate E&M 99 /min Heart rate temperature E&M 98.3 [degF] Body temp erature weight E&M 140.10 [lb_av] Weight Measure d blood pressure, diastolic, repeated by physician 83 BP srinivasan blood pressure, diastolic 83 mm[Hg] BP srinivasan blood pressure, systolic, repeated by physician 133 BP sys blood pressure, systolic 133 mm[Hg] BP sys height E&M 53 [in_us] Bdy height pulse rate E&M 96 /min Heart rate temperature E&M 97.1 [degF] Body temp erature weight E&M 141.31 [lb_av] Weight Measure d blood pressure, diastolic, repeated by physician 67 BP srinivasan blood pressure, diastolic 67 mm[Hg] BP srinivasan blood pressure, systolic, repeated by physician 118 BP sys blood pressure, systolic 118 mm[Hg] BP sys height E&M 53 [in_us] Bdy height pulse rate E&M 92 /min Heart rate temperature E&M 98.3 [degF] Body temp erature weight E&M 136.50 [lb_av] Weight Measure d Diagnostic Results Date Name Value Unit Range Description Lab Report: Comp. Metabolic Panel, CBC, Lipid Panel - Chemistry sodium, serum 137 mmol/L 116-955 6092/10/08 carbon dioxide, venous blood 29.9 mmol/L 21.0-32 [...] 0.50 mg/dL 0.00-1.00 cholesterol, serum 324 mg/dL 166-562 9149/10/08 triglyceride, serum, fasting 130 mg/dL 30-200 HDL [...] Panel - Lab Alkaline phosphatase 82 50-136 Office Visit: check-up for elmiron - Fernanda moises RBC, urine, dipstick negative protein, total urine random negative mg/dL Office Visit: check-up for elmiron - Uri nalysis pH, urine, semiquantitative 6.5 specific gravity, urine 1.015 urinalysis, routine Clean Catch ketones, urine, by test strip negative bilirubin, urine negative glucose, urine, semiquantitative negative urine color yellow appearance, urine clear leukocyte esterase, urine, by dipstick negative nitrite, urine, semiquantitative negative urobilinogen, urine, semiquantitative (dipstick) 0.2 protein, urine, semiquantitative (dipstick) negative Encounters Code Encounter Date Provider Facility CPT-41435 Level 3 Est. Patient 14:41:20 ENERGY CONTROL OFFICER David lion [facility] CPT-93441 [id number] Vst-Est Level IV 09:06:31 C ESAU Hu MD [facility] CPT-00785 Level 3 Est. Patient 14:16:41 CDT David lion [facility] CPT-95285 Level 3 Est. Patient 13:57:55 CDT David lion [facility] CPT-31034 Level 3 Est. Patient 16:08:07 CDT David lion [facility] CPT-85647 Level 3 Est. Patient 16:53:54 CDT May haas MD [facility] CPT-99879 [id number] Vst-Est Level IV 08:41:[address] Carlton Hu MD [facility] CPT-43902 Level 3 Est. Patient 09:46:49 ENERGY CONTROL OFFICER David lion [facility] CPT-39520 [id number] Vst-Est Level III 11:12:16 CDT Yanet Bess DO [facility] CPT-69490 Level 3 Est. Patient 11:34:49 ENERGY CONTROL OFFICER Perez Mora MD [facility] CPT-82626 Level 4 Est. Patient 09:51:32 ENERGY CONTROL OFFICER Carlton rich MD [facility] CPT-99073 Level 3 Est. Patient 10:26:00 ENERGY CONTROL OFFICER Elise stephenson [facility] CPT-38857 Level 3 Est. Patient 13:35:41 ENERGY CONTROL OFFICER Carlton rich MD [facility] CPT-06444 Level 3 Est. Patient 10:03:52 ENERGY CONTROL OFFICER Carlton rich MD [facility] CPT-36529 Level 3 Est. Patient 12:17:50 CDT Hugo Restrepo MD [facility] CPT-16445 Level 3 Est. Patient 13:42:38 CDT Elise Hitchcock ll [facility] CPT-50760 Level 3 Est. Patient 13:23:51 CDT Diya cobian [facility] CPT-05994 Level 3 Est. Patient 14:22:19 ENERGY CONTROL OFFICER Diya cobian [facility] CPT-98630 Level 3 Est. Patient 10:11:46 CDT Carlton rich MD [facility]-64807 Level 3 Est. Patient 17:29:43 CDT Elise Are ll [employer] OPERATOR [facility] CPT-83537 Level 3 Est. Patient 11:58:06 CDT Elise Are ll [employer] OPER[employer] [facility] CPT-02692 Level 4 Est. Patient 14:36:51 CDT Carlton rich MD [facility]-70330 Level 3 Est. Patient 18:16:00 ENERGY CONTROL OFFICER Blaine Freeman [facility]-27538 Level 3 Est. Patient 09:45:49 ENERGY CONTROL OFFICER Carlton rich MD [facility] [place]-62901 Level 3 Est. Patient 13:19:20 CDT Carlton rich MD [facility] CPT-79828 Level 3 Est. Patient 13:06:43 CDT Ridge tam DO [facility] CPT-93692 Level 3 Est. Patient 10:03:07 CDT Perez Mora MD [facility] CPT-92846 Level 3 Est. Patient 19:50:35 ENERGY CONTROL OFFICER Carlton rich MD [facility] CPT-58386 Level 4 Est. Patient 18:05:01 ENERGY CONTROL OFFICER Carlton rich MD [facility] CPT-82847 Level 3 Est. Patient 10:45:55 ENERGY CONTROL OFFICER Hugo Restrepo MD [facility] CPT-36504 Level 3 Est. Patient 14:12:49 CDT Griffin lincoln [facility] CPT-28593 Level 3 Est. Patient 17:37:24 CDT Carlton rich MD [facility] [place]-69495 Level 3 Est. Patient 16:51:54 CDT Carlton rich MD [facility] [place]-89362 Level 3 Est. Patient 12:18:11 CDT Hugo Restrepo MD [facility] CPT-58773 Level 3 Est. Patient 11:30:25 CDT Macry crisostomo MD PhD [facility] CPT-25008 Level 3 Est. Patient 12:00:47 ENERGY CONTROL OFFICER Carlton rich MD [facility] CPT-43420 Level 3 Est. Patient 16:31:06 ENERGY CONTROL OFFICER Carlton rich MD [facility] CPT-46727 Level 3 Est. Patient 16:23:24 ENERGY CONTROL OFFICER Ridge tam [facility] CPT-49002 Level 3 Est. Patient 12:34:12 CDT Carlton rich MD [facility] CPT-97112 Level 2 Est. Patient 15:43:33 CDT Robi armstrong MD [facility] CPT-74982 Level 4 Est. Patient 14:04:44 CDT Carlton rich MD [facility] CPT-06010 Level 3 Est. Patient 05:47:59 CDT Ridge tam [facility] CPT-10733 Level 3 Est. Patient 13:12:53 ENERGY CONTROL OFFICER Carlton rich MD [facility] CPT-08635 Level 3 Est. Patient 14:26:53 CDT Hugo Restrepo MD [facility] Procedures Code Procedure Name Date Entry Date Standard Desc ription CPT-CH1400I (4274F 2P) Patient Reason Influenza immu nization not administered 14:13:39 ENERGY CONTROL OFFICER CPT-00169 Venipuncture Draw Fee 15:53:34 CDT CPT-000 Give Appropriate Flu Vaccine 14:14:31 CDT 2 CPT-J1040 Depo Medrol 80 mg (Methyl Prednisolone A cetate) 10:42:44 CDT CPT-J1100 Decadron 8mg (Dexamethasone) 10:42:44 CDT 2 CPT-J0696 Rocephin 1gm Inj Solr 14:32:13 CDT CPT-J1020 Depo Medrol 60 mg (Methyl Prednisolone A cetate) 14:32:13 CDT CPT-J1100 Decadron 6mg (Dexamethasone) 14:32:13 CDT 2 CPT-81436 Hip bilat min 2V w AP pelvis 13:16:20 CDT 2 CPT-40496 Pelvis only 13:07:33 CDT CPT-52672 Spec Collection and Handling Fee 11:25:12 C DT CPT-28541 Fluzone Quadrivalent Intramuscular Suspe nsion 0.5 ML 14:31:55 CDT CPT-94592 Abx/Therapy Injection 13:28:47 ENERGY CONTROL OFFICER CPT-J2930 Solu Medrol 125 mg (Methyl Prednisolone Sodium Succinate) 12:00:47 ENERGY CONTROL OFFICER CPT-21129 Venipuncture Draw Fee 11:33:31 CDT CPT-21190 EKG Trac and Interp 11:21:09 CDT CPT-14702 Chest 2V Frontal and Lat 11:21:09 CDT 12/15 CPT-60400 Venipuncture Draw Fee 08:02:34 CDT CPT-97983 Chest 2V Frontal and Lat 05:47:59 CDT 06/05
--- OUTSIDE RECORDS SUMMARY | 2019-10-08 08:48 | XMS REPORT | Clinical Summary ---
Author Author Caitlin, Juliana Martinez Organization [employer] [facility] Address Unknown Phone Unavailable Allergies, Adverse Reactions, Alerts Allergy Name Reaction Description Start Date Severity Status Pr ovider No Known Allergies Becky AUGILARA Conditions or Problems Problem Name Problem Code [...] URI 465.9 Inactive Ridge Bess DO Ac wrangell upper respiratory infections of unspecified site Body Mass Index 35.0-35.9 Adult Refinement 2017 Ridge Bess DO Body Mass Index 35.0-35.9, adult BMI 34-34.9 Refinement Cherelle Torres RN Body Mass Index 35.0-35.9, adult BMI 35-35.9 Refinement 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amisha RICEN Body Mass Index 35.0-35.9, adult BMI 34-34.9 Refinement May Vivar MD Body Mass Index 35.0-35.9, adult BMI 35-35.9 Refinement 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 [employer] Body Mass Index 35.0-35.9, adult BMI 33-33.9 Active 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 Body Mass Index 35.0-35.9, adult Upper respiratory infection, viral 465.9 Active 2 Perez Mora MD Acute upper respiratory infections of un specified site Obesity Class I (BMI 30-34.9) Refinement Jose Torres RN Obesity, unspecified Morbid obesity due to excess calories [facility] 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amisha RICEN Obesity, unspecified Obesity [...] nonspecific skin eruption 782.1 Active 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 Rash and other nonspecific skin eruption Pharyngitis, acute / sore throat 462 Active 201 12/06/23 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 Acute pharyngitis Shingles 053.9 Active 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 Herpes zoster without mention of complication Allergic [...] Restrepo MD 201 10/02/29 URI ICD-465.9 Inactive iRdge Bess DO Medication List Medication Instructions Start Date Stop Date Generic Name NDC Status Provider Patient Instruction HYDROCHLOROTHIAZIDE 25 MG ORAL TABLET Take 1 tablet by mouth once daily HYDROCHLOROTHIAZIDE [id number] Active Carlton Hu MD Active GUAIFENESIN-CODEINE 100-10 MG/5ML ORAL SYRUP 1 tsp PO q6h PRN co ugh GUAIFENESIN-CODEINE 04717401905 Active Carlton Hu MD Active AMOXICILLIN-POT CLAVULANATE 875-125 MG ORAL TABLET 1 pill by mouth twice daily AMOXICILLIN-POT CLAVULANATE 41452227973 No Longer Act nael Lopes APRN Active DULOXETINE HCL 60 MG ORAL CAPSULE DELAYED RELEASE PART ICLES TAKE 1 CAPSULE BY MOUTH ONCE DAILY FOR PAIN AND MOOD DULOXETINE HCL 002 86923346 Active Carlton Hu MD Active TRAMADOL HCL 50 MG TABS TAKE 1 TABLET BY MOUTH THREE TIMES DAILY WITH EXTRA STRENGTH TYLENOL TRAMADOL HCL 75170242034 Active Carlton Hu MD Active ALPRAZOLAM 0.5 MG TABS TAKE 1 TABLET BY MOUTH ONCE DAILY NEEDED ALPRAZOLAM 61536366961 Active Carlton Hu MD Active GABAPENTIN 100 MG ORAL CAPSULE TAKE 1 CAPSULE BY MOUTH TWICE DAILY FOR FIBROMYALGIA GABAPENTIN 69842280764 Active Carlton Hu MD Active ELMIRON 100MG CAP TAKE 2 CAPSULES BY MOUTH IN THE MORNING AND 1 CAPSULE AT BEDTIME PENTOSAN POLYSULFATE SODIUM 13145073818 Active May Vivar MD Active TOPIRAMATE 100 MG TABS TAKE 1 TABLET BY MOUTH TWICE DAILY 1 TOPIRAMATE 75856813346 Active Carlton Hu MD Active ATORVASTATIN CALCIUM 10 MG ORAL TABLET 1 pill by mouth night ly, for cholesterol ATORVASTATIN CALCIUM 16785541888 Active Columba Parrish Active TRIAMCINOLONE ACETONIDE 0.1 % EXTERNAL CREAM apply bid spari ngly to rash TRIAMCINOLONE ACETONIDE 53477876354 No Longer Active Carlton Hu MD Active TYLENOL WITH CODEINE #3 300-30 MG ORAL TABLET ACETAMINOPHEN-CODEINE 69771042473 No Longer Active Carlton Hu MD Active TYLENOL WITH CODEINE #3 300-30 MG ORAL TABLET 1-2 po q6hr PRN Pa in ACETAMINOPHEN-CODEINE 61986268245 No Longer Active David Lopes AP RN Active ACYCLOVIR 800 MG ORAL TABLET 1 po 5 times daily x 7 days ACYCLOVIR 02992269794 No Longer Active 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 TOPAMAX 100 MG ORAL TABLET 1 by mouth twice daily TOPIRAMATE 05099195445 Active Carlton Hu MD Active TRIAMCINOLONE ACETONIDE 0.1 % EXTERNAL OINTMENT Apply to affected areas TID PRN Rash/Itching for up 2 weeks TRIAMCINOLONE ACETON KAYLA 45265692652 No Longer Active 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 AMOXICILLIN 500 MG ORAL CAPSULE 1 cap by mouth twice daily 10/21 AMOXICILLIN 51462593487 No Longer Active 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 CYMBALTA 30 MG ORAL CAPSULE DELAYED RELEASE PARTICLES 1 cap by mouth daily for depression DULOXETINE HCL 95175691083 No Longer Active Carlton Hu MD Active TUSSIONEX PENNKINETIC ER 10-8 MG/5ML ORAL SUSPENSION E XTENDED RELEASE 5ml po q12hr PRN Cough HYDROCOD POLST-CHLORPHEN POLST 12532081718 Active Carlton Hu MD Active PREDNISONE 20 MG ORAL TABLET Take 2 tabs day 1 and 2 and 1 t ab days 3 and 4 PREDNISONE 93900065214 No Longer Active 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 DOXYCYCLINE HYCLATE 100 MG ORAL CAPSULE 1 cap by mouth twice latasha ly DOXYCYCLINE HYCLATE 97442317333 No Longer Active 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 TOPAMAX 100 MG ORAL TABLET Take 1 tablet po bid TOPIRAMATE 88502946117 No Longer Active 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 TUSSIONEX PENNKINETIC ER 10-8 MG/5ML ORAL SUSPENSION E XTENDED RELEASE 5ml po q12hr PRN Cough HYDROCOD POLST-CHLORPHEN POLST 5 9574327811 No Longer Active 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 AUGMENTIN 875-125 MG ORAL TABLET 1 po BID x 10 days 18/04/16 AMOXICILLIN-POT CLAVULANATE 09669599575 No Longer Active 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 PREDNISONE 50 MG ORAL TABLET Take 50 mg dialy for 6 day s 7 PREDNISONE 67336964051 No Longer Active 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 TUSSIONEX PENNKINETIC ER 10-8 MG/5ML ORAL SUSPENSION E XTENDED RELEASE 5ml po q12hr PRN Cough HYDROCOD POLST-CHLORPHEN POLST 5 0899149175 No Longer Active Cherelle Torres RN Active PREDNISONE 20 MG ORAL TABLET two tabs by mouth today, then one tab by mouth days two and three and four PREDNISONE 51884959767 No Lo nger Active Cherelle Torres RN Active AZITHROMYCIN 250 MG ORAL TABLET 2 po qd x 1 day, then 1 po q d x 4 days AZITHROMYCIN 44459495520 No Longer Active Ridge Bess DO Active PREDNISONE 20 MG ORAL TABLET 2 po qd x 5 days P REDNISONE 17899015489 No Longer Active Perez Mora MD Active PROAIR HFA 108 (90 BASE) MCG/ACT INHALATION AEROSOL SO LUTION 2 puffs four times a day as needed ALBUTEROL SULFATE 51820191755 No Long er Active Becky FUENTES Active ASPIRIN 81 MG ORAL TABLET 1 po qd ASPIRIN 96138777543 Active Carlton Hu MD Active PREDNISONE 20 MG ORAL TABLET 1 tab twice daily for 3 d ay, then one daily for three days PREDNISONE 60662623993 No Longer Active Carlton Hu MD Active AUGMENTIN 875-125 MG ORAL TABLET 1 po BID x 10 days 16/03/22 AMOXICILLIN-POT CLAVULANATE 54073299979 No Longer Active Elise Garcia APRN Active TERBINAFINE HCL 250 MG ORAL TABLET 1 qDay for nail fungus 7 TERBINAFINE HCL 56458196527 No Longer Active Carlton Hu MD A ctive AMOXICILLIN 500 MG ORAL CAPSULE 1 cap by mouth three times a day AMOXICILLIN 56212148429 No Longer Active Carlton Hu MD Active ELMIRON 100 MG ORAL CAPSULE 2 tablets in the am and 1 tablet at hs PENTOSAN POLYSULFATE SODIUM 09039830942 No Longer Active Robert Hu MD Active MUCINEX D 60-600 MG ORAL TABLET EXTENDED RELEASE 12 HOUR 1 t ab po q am PSEUDOEPHEDRINE-GUAIFENESIN 33359655142 No Longer Act nael Carlton Hu MD Active MUCINEX DM MAXIMUM STRENGTH 60-1200 MG ORAL TABLET EXT ENDED RELEASE 12 HOUR 1 tab po q am DEXTROMETHORPHAN-GUAIFENESIN 77267490252 No Longer Active Carlton Hu MD Active TUSSIONEX PENNKINETIC ER 10-8 MG/5ML ORAL SUSPENSION E XTENDED RELEASE 5ml po q12hr PRN Cough HYDROCOD POLST-CHLORPHEN POLST 5 3551948776 No Longer Active Carlton Hu MD Active POTASSIUM CHLORIDE ER 20 MEQ ORAL TABLET EXTENDED RELE ASE Take 1 by mouth 4 times daily for 7 days POTASSIUM CHLORIDE 55334967091 No Longer Active Carlton Hu MD Active ZITHROMAX 250 MG ORAL TABLET 2 po today, then 1 po q days 2-5 20 14/09/04 AZITHROMYCIN 56738402579 No Longer Active Elise Garcia APRN Active TUSSIONEX PENNKINETIC ER 10-8 MG/5ML ORAL SUSPENSION E XTENDED RELEASE 5 ml twice a day as needed for cough HYDROCOD POLST-CHLORPH EN POLST 11011203856 No Longer Active Elise Garcia APRN Active MONTELUKAST SODIUM 10 MG ORAL TABLET 1 po daily for Allergy MONTELUKAST SODIUM 53287086827 Active Carlton Hu MD Ac tive TUSSIONEX PENNKINETIC ER 10-8 MG/5ML ORAL SUSPENSION E XTENDED RELEASE 5ml po q12hr PRN Cough HYDROCOD POLST-CHLORPHEN POLST 5 8927082678 No Longer Active Hugo Restrepo MD Active LYRICA 100 MG ORAL CAPSULE Take 1 tab po BID for fibromyalgia 20 11/08/21 PREGABALIN 61019139676 No Longer Active Elise Garcia APRN A ctive PREDNISONE 20 MG ORAL TABLET 2 tabs daily for 3 days, 1 tab daily for 3 days, 1/2 tab daily for 2 days PREDNISONE 20050989699 No Longer Active Jiriley De Guzman APRN Active TUSSIONEX PENNKINETIC ER 10-8 MG/5ML ORAL SUSPENSION E XTENDED RELEASE 5 mL PO q 12 hrs PRN cough HYDROCOD POLST-CHLORPHEN POLST 117301 13222 No Longer Active Jillina Frakerriel 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 FLUTICASONE PROPIONATE 50 MCG/ACT NASAL SUSPENSION 2 s prays each nostril daily until bottle is empty FLUTICASONE PROPIONATE 417705253 99 No Longer Active Diya De Guzman APRN Active ASMANEX 60 METERED DOSES 220 MCG/INH INHALATION AEROSO L POWDER BREATH ACTIVATED 1 puff bid with rinse after MOMETASONE FUROATE 6879689 4102 No Longer Active Diya De Guzman APRN Active ZITHROMAX Z-REYNA 250 MG ORAL TABLET 2 today, then 1 daily for 4 d ays AZITHROMYCIN 11113951860 No Longer Active Elise Garcia APRN Active TUSSIONEX PENNKINETIC ER 10-8 MG/5ML ORAL SUSPENSION E XTENDED RELEASE 5ml po q12hr PRN Cough HYDROCOD POLST-CHLORPHEN POLST 5 6046399299 No Longer Active Elise Garcia APRN Active PREDNISONE 20 MG ORAL TABLET 2 tabs daily for 3 days, 1 tab daily for 3 days, 1/2 tab daily for 2 days PREDNISONE 04358888726 No Longer Active Diya De Guzman APRN Active AMOXICILLIN 500 MG ORAL CAPSULE 2 po BID x 10 days 201 09/29/08 AMOXICILLIN 76709205724 No Longer Active Diya De Guzman APRN Act nael SINGULAIR 10 MG ORAL TABLET 1 po qday for allergies 20 14/01/12 MONTELUKAST SODIUM 43358734870 No Longer Active Carlton Hu MD Active LEVAQUIN 500 MG ORAL TABLET 1 tablet by mouth daily 20 13/09/24 LEVOFLOXACIN 95247580368 No Longer Active Carlton Hu MD Acti ve FLUTICASONE PROPIONATE 50 MCG/ACT NASAL SUSPENSION 2 s prays each nostril daily for 2 weeks, then 1 spray each nostril daily. FLUTICASONE PROPIONATE 86754686120 Active Carlton Hu MD Active ZITHROMAX 250 MG ORAL TABLET 2 po today, then 1 po q days 2-5 20 13/08/10 AZITHROMYCIN 93847569603 No Longer Active Elise Garcia APRN Active CEFDINIR 300 MG ORAL CAPSULE 1 po BID x 10 days CEFDINIR 66762034097 No Longer Active Carlton Hu MD Active ZOCOR 40 MG ORAL TABLET 1 tab by mouth daily SI MVASTATIN 89012557275 No Longer Active Carlton Hu MD Active CYCLOBENZAPRINE HCL 10 MG ORAL TABLET 1 tablet by mouth BID prn had pain CYCLOBENZAPRINE HCL 59470785548 No Longer Active Jayden Hu MD Active LEVOFLOXACIN 500 MG ORAL TABLET 1 tab PO daily x 10 days LEVOFLOXACIN 52901883850 No Longer Active Carlton Hu MD Acti ve PREDNISONE 20 MG ORAL TABLET 3 tab PO qd x 2d, 2 tab P O qd x 2d, 1 tab PO qd x 2d, 1/2 tab PO qd x 2d PREDNISONE 35088592681 No Lo nger Active Carlton Hu MD Active FLUTICASONE PROPIONATE 50 MCG/ACT NASAL SUSPENSION 1 t o 2 sprays each nostril daily FLUTICASONE PROPIONATE 40848190472 No Longer Ac tive Blaine HERNANDEZ Active CHERATUSSIN AC 100-10 MG/5ML ORAL SYRUP 1 tsp by mouth every 4 hours as needed for cough GUAIFENESIN-CODEINE 13148625506 No Longe r Active Blaine HERNANDEZ Active PROMETHAZINE-CODEINE 6.25-10 MG/5ML ORAL SYRUP 1 tsp b y mouth every 6 hours if needed for cough PROMETHAZINE-CODEINE 87731875548 No Longer Active Blaine HERNANDEZ Active CHERATUSSIN AC 100-10 MG/5ML ORAL SYRUP 1 tsp by mouth every 4 hours as needed for cough GUAIFENESIN-CODEINE 75943339330 No Longe r Active Blaine HERNANDEZ Active ZITHROMAX Z-REYNA 250 MG ORAL TABLET 2 today, then 1 daily for 4 d ays AZITHROMYCIN 07368077787 No Longer Active Columba Parrish Act nael ZITHROMAX 250 MG ORAL TABLET 2 po today, then 1 po q days 2-5 20 14/03/21 AZITHROMYCIN 90158565422 No Longer Active Carlton Hu MD Active ZITHROMAX Z-REYNA 250 MG ORAL TABLET 2 today, then 1 daily for 4 d ays AZITHROMYCIN 23823470753 No Longer Active Columba Parrish Act nael AUGMENTIN 875-125 MG ORAL TABLET 1 po BID x 10 days 13/01/20 AMOXICILLIN-POT CLAVULANATE 51270579492 No Longer Active Diya Daphnebrayan KHAN Active ZITHROMAX 250 MG ORAL TABLET 2 po today, then 1 po q days 2-5 12/08/14 AZITHROMYCIN 72004002539 No Longer Active Carlton Hu MD Active PREMARIN 0.625 MG ORAL TABLET TAKE 1 TAB BY MOUTH DAILY ESTROGENS CONJUGATED 98011166108 No Longer Active Ridge Bess DO A ctive CYMBALTA 30 MG ORAL CAPSULE DELAYED RELEASE PARTICLES 1 cap by mouth daily DULOXETINE HCL 18760954627 No Longer Active Ridge tam DO Active AMOXICILLIN 500 MG ORAL CAPSULE 1 tab by mouth 3 times daily x 10 days AMOXICILLIN 72280485248 No Longer Active Carlton bustamante MD Active AMOXICILLIN 500 MG ORAL CAPSULE 1 tab by mouth 3 times daily x 10 days AMOXICILLIN 96228508754 No Longer Active Carlton bustamante MD Active PROMETHAZINE-CODEINE 6.25-10 MG/5ML ORAL SYRUP 1 tsp b y mouth every 8 hours prn cough PROMETHAZINE-CODEINE 05078107749 No Longer Acti ve Carlton Hu MD Active MEDROL 4 MG ORAL TABLET THERAPY PACK 6 pills x 1 day, then 5 pills x 1 day then 4 pills x 1 day, then 3 pills x 1 day, then 2 pills x 1 day, then 1 pill x 1 day, then stop METHYLPREDNISOLONE 58290164052 No Long er Active Perez Mora MD Active AZITHROMYCIN 250 MG ORAL TABLET 2 po qd x 1 day, then 1 po q d x 4 days AZITHROMYCIN 04281493564 No Longer Active Perez Ambriz MD Active SYMBICORT 160-4.5 MCG/ACT INHALATION AEROSOL 2 puffs bid wit h rinse after BUDESONIDE-FORMOTEROL FUMARATE 66398332697 N o Longer Active Perez Mora MD Active LYRICA 75 MG ORAL CAPSULE TAKE 1 CAPSULE BY MOUTH TWICE DAILY PREGABALIN 00562651080 No Longer Active Carlton Hu MD Acti ve TOPAMAX 25 MG ORAL TABLET 1 qHS x 1 week, then 1 BID x 1 week, then 1 qAM and 2 qHS x 1 week, then 2 BID (migraine prevention) T OPIRAMATE 94056191502 No Longer Active Jerica FUENTES Active TOPAMAX 50 MG ORAL TABLET take 1 tab po BID for migraines. 07/02 TOPIRAMATE 58664973762 No Longer Active Jerica FUENTES Active TRIAMCINOLONE ACETONIDE 0.1 % EXTERNAL CREAM apply three roger es daily prn rash TRIAMCINOLONE ACETONIDE 88158481114 No Longer Active Carlton Hu MD Active PAXIL 40 MG ORAL TABLET take 1 tab po qday for depression 0 PAROXETINE HCL 79643372873 Active Carlton Hu MD Active CHERATUSSIN AC 100-10 MG/5ML ORAL SYRUP 5ml po q6hr PRN Cough 20 13/04/14 GUAIFENESIN-CODEINE 94592937827 No Longer Active Carlton Hu MD Active MEDROL 4 MG ORAL TABLET THERAPY PACK 6 tabs on day 1, 5 tabs on day 2, 4 tabs on day 3, 3 tabs on day 4, 2 tabs on day 5, 1 tab on day 6 2013 METHYLPREDNISOLONE 31492103731 No Longer Active Perez Mora MD Active AZITHROMYCIN 250 MG ORAL TABLET 2 po qd x 1 day, then 1 po q d x 4 days AZITHROMYCIN 04582201407 No Longer Active Perez Ambriz MD Active PROPRANOLOL HCL 60 MG ORAL TABLET 1 PO Q D PROPRANOLOL HCL 72526500424 No Longer Active Perez Mora MD Activ e CHERATUSSIN AC 100-10 MG/5ML ORAL SYRUP take one tsp po Q 6h ours prn cough GUAIFENESIN-CODEINE 90357792573 No Longer Active Zia Mora MD Active AUGMENTIN 875-125 MG ORAL TABLET 1 tab by mouth twice daily with food AMOXICILLIN-POT CLAVULANATE 13854302112 No Longer Act nael Perez Mora MD Active CHERATUSSIN AC 100-10 MG/5ML ORAL SYRUP 1 tsp by mouth every 4 hours as needed for cough GUAIFENESIN-CODEINE 46424653965 No Longe r Active Hugo Restrepo MD Active ACETAMINOPHEN-CODEINE #3 300-30 MG ORAL TABLET 1 PO Q 4-6 HRS WA N PAIN ACETAMINOPHEN-CODEINE 73822021820 No Longer Active Hugo Restrepo MD Active LEVAQUIN 500 MG ORAL TABLET take one po QD LEVO FLOXACIN 34909926910 No Longer Active Griffin HERNANDEZ Active PREDNISONE 20 MG ORAL TABLET Take 3 tabs daily for 3 d ays, 2 tabs daily for 3 days, 1 tab daily for 3 days, 1/2 tab daily for 3 days 11/07 PREDNISONE 67990917388 No Longer Active Carlton Hu MD Acti ve AVELOX 400 MG ORAL TABLET 1 tab by mouth daily MOXIFLOXACIN HCL 42961631690 No Longer Active Carlton Hu MD Active CHERATUSSIN AC 100-10 MG/5ML ORAL SYRUP 1 tsp by mouth every 4 hours as needed for cough GUAIFENESIN-CODEINE 58351319193 No Longe r Active Hugo Restrepo MD Active AVELOX 400 MG ORAL TABLET 1 tab by mouth daily MOXIFLOXACIN HCL 97676594313 No Longer Active Marcy De La Rosa MD PhD Active TERBINAFINE HCL 250 MG ORAL TABLET 1 qDay T ERBINAFINE HCL 29990554787 No Longer Active Marcy De La Rosa MD PhD Active CHERATUSSIN AC 100-10 MG/5ML ORAL SYRUP 1 tsp by mouth every 4 hours as needed for cough GUAIFENESIN-CODEINE 81674847591 No Longe r Active Marcy De La Rosa MD PhD Active AVELOX 400 MG ORAL TABLET 1 tab by mouth daily MOXIFLOXACIN HCL 73500543146 No Longer Active Marcy De La Rosa MD PhD Active HYDROCODONE-ACETAMINOPHEN 5-325 MG ORAL TABLET 1 po q 6hr PRN co ugh HYDROCODONE-ACETAMINOPHEN 57003018099 No Longer Active Marcy De La Rosa MD PhD Active PREDNISONE 20 MG ORAL TABLET 2 tabs daily for 3 days, 1 tab daily for 3 days, 1/2 tab daily for 2 days PREDNISONE 37724313274 No Longer Active Carlton Hu MD Active CEFDINIR 300 MG ORAL CAPSULE by mouth twice a day 2011 CEFDINIR 96246932368 No Longer Active Carlton Hu MD Acti ve ACETAMINOPHEN-CODEINE #3 300-30 MG ORAL TABLET 1 tablet po q 4-6 hrs prn pain ACETAMINOPHEN-CODEINE 86846674573 No Longer Active Ridge Bess DO Active ZITHROMAX 250 MG ORAL TABLET 2 po today, then 1 po q days 2-5 20 03/07/07 AZITHROMYCIN 58309782551 No Longer Active Carlton Hu MD Active CHERATUSSIN AC 100-10 MG/5ML ORAL SYRUP take 1 tsp po q4-6 h ours prn cough GUAIFENESIN-CODEINE 27148827841 No Longer Active Jayden Hu MD Active ACETAMINOPHEN-CODEINE #3 300-30 MG ORAL TABLET 1 PO Q 4-6 HR PRN PAIN ACETAMINOPHEN-CODEINE 71407195126 No Longer Active Arnol Hu MD Active LORTAB 7.5-500 MG/15ML ORAL ELIXIR 7.5 ml po q 4 hour prn cough HYDROCODONE-ACETAMINOPHEN 99543893879 No Longer Active Carlton Hu MD Active PREDNISONE 20 MG ORAL TABLET 1 po bid 3 days, then 1 po q day 3 days PREDNISONE 71787297907 No Longer Active Carlton Hu MD Active CEFDINIR 300 MG ORAL CAPSULE by mouth twice a day 2011 CEFDINIR 46216349500 No Longer Active Carlton Hu MD Acti ve CEFDINIR 300 MG ORAL CAPSULE by mouth twice a day 2010 CEFDINIR 45614051640 No Longer Active Carlton Hu MD Acti ve CEFDINIR 300 MG ORAL CAPSULE by mouth twice a day 2010 CEFDINIR 39470039253 No Longer Active Carlton Hu MD Acti ve TESSALON PERLES 100 MG ORAL CAPSULE 1 tablet by mouth 3 times daily as needed for cough BENZONATATE 39418589879 No Longer Active Carlton Hu MD Active CEFDINIR 300 MG ORAL CAPSULE by mouth twice a day 2010 CEFDINIR 40763357144 No Longer Active Carlton Hu MD Acti ve ZITHROMAX Z-REYNA 250 MG ORAL TABLET 2 today, then 1 daily for 4 d ays AZITHROMYCIN 20215547198 No Longer Active Hugo Restrepo MD Active TESSALON PERLES 100 MG ORAL CAPSULE 1 tablet by mouth 3 times daily as needed for cough TESSALON PERLES 100 MG ORAL CAPSULE 19081 7 BENZONATATE Inactive PREDNISONE 20 MG ORAL TABLET 1 po bid 3 days, then 1 po q day 3 days PREDNISONE 20 MG ORAL TABLET 026342 PREDNISONE Thorp ctive LORTAB 7.5-500 MG/15ML ORAL ELIXIR 7.5 ml po q 4 hour prn cough LORTAB 7.5-500 MG/15ML ORAL ELIXIR HYDROCODONE-A CETAMINOPHEN Inactive ACETAMINOPHEN-CODEINE #3 300-30 MG ORAL TABLET 1 PO Q 4-6 HR PRN PAIN ACETAMINOPHEN-CODEINE #3 300-30 MG ORAL TABLET 9 99631 ACETAMINOPHEN-CODEINE Inactive CHERATUSSIN AC 100-10 MG/5ML ORAL SYRUP take 1 tsp po q4-6 h ours prn cough CHERATUSSIN AC 100-10 MG/5ML ORAL SYRUP 644725 GUAIFENESIN-CODEINE Inactive ACETAMINOPHEN-CODEINE #3 300-30 MG ORAL TABLET 1 tablet po q 4-6 hrs prn pain ACETAMINOPHEN-CODEINE #3 300-30 MG ORAL TABLET 858475 ACETAMINOPHEN-CODEINE Inactive HYDROCODONE-ACETAMINOPHEN 5-325 MG ORAL TABLET 1 po q 6hr PRN co ugh HYDROCODONE-ACETAMINOPHEN 5-325 MG ORAL TABLET 734203 HYDROCODONE-ACETAMINOPHEN Inactive AVELOX 400 MG ORAL TABLET 1 tab by mouth daily AVELOX 400 MG ORAL TABLET MOXIFLOXACIN HCL Inactive CHERATUSSIN AC 100-10 MG/5ML ORAL SYRUP 1 tsp by mouth every 4 hours as needed for cough CHERATUSSIN AC 100-10 MG/5ML ORAL SYRUP 9 33129 GUAIFENESIN-CODEINE Inactive TERBINAFINE HCL 250 MG ORAL TABLET 1 qDay 07/08 TERBINAFINE HCL 250 MG ORAL TABLET 187299 TERBINAFINE HCL Inactive CHERATUSSIN AC 100-10 MG/5ML ORAL SYRUP 1 tsp by mouth every 4 hours as needed for cough CHERATUSSIN AC 100-10 MG/5ML ORAL SYRUP 9 02094 GUAIFENESIN-CODEINE Inactive ACETAMINOPHEN-CODEINE #3 300-30 MG ORAL TABLET 1 PO Q 4-6 HRS WA N PAIN ACETAMINOPHEN-CODEINE #3 300-30 MG ORAL TABLET 677947 ACETAMINOPHEN-CODEINE Inactive CHERATUSSIN AC 100-10 MG/5ML ORAL SYRUP 1 tsp by mouth every 4 hours as needed for cough CHERATUSSIN AC 100-10 MG/5ML ORAL SYRUP 9 02158 GUAIFENESIN-CODEINE Inactive AUGMENTIN 875-125 MG ORAL TABLET 1 tab by mouth twice daily with food AUGMENTIN 875-125 MG ORAL TABLET AMOXICIL MADELINE-POT CLAVULANATE Inactive CHERATUSSIN AC 100-10 MG/5ML ORAL SYRUP take one tsp po Q 6h ours prn cough CHERATUSSIN AC 100-10 MG/5ML ORAL SYRUP 819759 GUAIFENESIN-CODEINE Inactive PROPRANOLOL HCL 60 MG ORAL TABLET 1 PO Q D PROPRANOLOL HCL 60 MG ORAL TABLET 092957 PROPRANOLOL HCL Inactive TOPAMAX 50 MG ORAL TABLET take 1 tab po BID for migraines. 07/02 TOPAMAX 50 MG ORAL TABLET 001419 TOPIRAMATE Inacti ve TOPAMAX 25 MG ORAL TABLET 1 qHS x 1 week, then 1 BID x 1 week, then 1 qAM and 2 qHS x 1 week, then 2 BID (migraine prevention) TOPAMAX 25 MG ORAL TABLET 159049 TOPIRAMATE Inactive LYRICA 75 MG ORAL CAPSULE TAKE 1 CAPSULE BY MOUTH TWICE DAILY LYRICA 75 MG ORAL CAPSULE 855524 PREGABALIN Inactive SYMBICORT 160-4.5 MCG/ACT INHALATION AEROSOL 2 puffs bid wit h rinse after SYMBICORT 160-4.5 MCG/ACT INHALATION AEROSOL 124 6304 BUDESONIDE-FORMOTEROL FUMARATE Inactive PROMETHAZINE-CODEINE 6.25-10 MG/5ML ORAL SYRUP 1 tsp b y mouth every 8 hours prn cough PROMETHAZINE-CODEINE 6.25-10 MG/ 5ML ORAL SYRUP 222234 PROMETHAZINE-CODEINE Inactive CYMBALTA 30 MG ORAL CAPSULE DELAYED RELEASE PARTICLES 1 cap by mouth daily CYMBALTA 30 MG ORAL CAPSULE DELAYED RELE ASE PARTICLES 434461 DULOXETINE HCL Inactive PREMARIN 0.625 MG ORAL TABLET TAKE 1 TAB BY MOUTH DAILY PREMARIN 0.625 MG ORAL TABLET ESTROGENS CONJUGATED Inactive CHERATUSSIN AC 100-10 MG/5ML ORAL SYRUP 1 tsp by mouth every 4 hours as needed for cough CHERATUSSIN AC 100-10 MG/5ML ORAL SYRUP 9 53140 GUAIFENESIN-CODEINE Inactive PROMETHAZINE-CODEINE 6.25-10 MG/5ML ORAL SYRUP 1 tsp b y mouth every 6 hours if needed for cough PROMETHAZINE-CODEINE 6.25-10 MG/5ML ORAL SYRUP 074690 PROMETHAZINE-CODEINE Inactive CHERATUSSIN AC 100-10 MG/5ML ORAL SYRUP 1 tsp by mouth every 4 hours as needed for cough CHERATUSSIN AC 100-10 MG/5ML ORAL SYRUP 9 96032 GUAIFENESIN-CODEINE Inactive FLUTICASONE PROPIONATE 50 MCG/ACT NASAL SUSPENSION 1 t o 2 sprays each nostril daily FLUTICASONE PROPIONATE 50 MCG/AC T NASAL SUSPENSION 4493366 FLUTICASONE PROPIONATE Inactive PREDNISONE 20 MG ORAL TABLET 3 tab PO qd x 2d, 2 tab P O qd x 2d, 1 tab PO qd x 2d, 1/2 tab PO qd x 2d PREDNISONE 20 MG ORAL TAB LET 769734 PREDNISONE Inactive LEVOFLOXACIN 500 MG ORAL TABLET 1 tab PO daily x 10 days LEVOFLOXACIN 500 MG ORAL TABLET 454579 LEVOFLOXACIN Inactive CYCLOBENZAPRINE HCL 10 MG ORAL TABLET 1 tablet by mouth BID prn had pain CYCLOBENZAPRINE HCL 10 MG ORAL TABLET 378805 CYCLOBENZAPRINE HCL Inactive ZOCOR 40 MG ORAL TABLET 1 tab by mouth daily 4 ZOCOR 40 MG ORAL TABLET [id number] SIMVASTATIN Inactive TUSSIONEX PENNKINETIC ER 10-8 MG/5ML [...] FLUTICASONE PROPIO EFE 50 MCG/ACT NASAL SUSPENSION [id number] FLUTICASONE PROPIONATE Inactive TUSSIONEX PENNKINETIC ER 10-8 MG/5ML ORAL SUSPENSION E XTENDED RELEASE 5 mL PO q 12 hrs PRN cough TUSSIONEX PENNKINETI C ER 10-8 MG/5ML ORAL SUSPENSION EXTENDED RELEASE HYDROCOD POLST-CHLORPHEN POLST I nactive LYRICA 100 MG ORAL CAPSULE Take 1 tab po BID for fibromyalgia 11/08/21 LYRICA 100 MG ORAL CAPSULE [id number] PREGABALIN Inact nael TUSSIONEX PENNKINETIC ER 10-8 [...] three days PREDNISONE 20 MG ORAL TABLET [id number] PREDNIS ONE Inactive PROAIR HFA 108 (90 BASE) MCG/ACT INHALATION AEROSOL SO LUTION 2 puffs four times a day as needed PROAIR HFA 108 (90 B ASE) MCG/ACT INHALATION AEROSOL SOLUTION ALBUTEROL SULFATE Inactive PREDNISONE 20 MG ORAL TABLET two tabs by mouth today, then one tab by mouth days two and three and four PREDNISONE 20 MG ORAL TAB LET 926378 PREDNISONE Inactive TUSSIONEX PENNKINETIC ER 10-8 MG/5ML [...] bid 04/20 TOPAMAX 100 MG ORAL TABLET 611004 TOPIRAMATE Inactive CYMBALTA 30 MG ORAL CAPSULE DELAYED RELEASE PARTICLES 1 cap by mouth daily for depression CYMBALTA 30 MG ORAL CAPSULE DELAYED RELEASE PARTICLES 136554 DULOXETINE HCL Inactive TYLENOL WITH CODEINE #3 300-30 MG ORAL TABLET 1-2 po q6hr PRN Pa in TYLENOL WITH CODEINE #3 300-30 MG ORAL TABLET 992121 ACETAMINOPHEN-CODEINE Inactive TYLENOL WITH CODEINE #3 300-30 MG ORAL TABLET TYLENOL WITH CODEINE #3 300-30 MG ORAL TABLET 953131 ACETAMINOPHEN-CODEINE Inactive TRIAMCINOLONE ACETONIDE 0.1 % EXTERNAL CREAM apply bid spari ngly to rash TRIAMCINOLONE ACETONIDE 0.1 % EXTERNAL CREAM 101 4314 TRIAMCINOLONE ACETONIDE Inactive ZITHROMAX Z-REYNA 250 MG ORAL TABLET 2 today, then 1 daily for 4 d ays ZITHROMAX Z-REYNA 250 MG ORAL TABLET 588723 AZITHROMYCIN Inactive CEFDINIR 300 MG ORAL CAPSULE by mouth twice a day 2010 CEFDINIR 300 MG ORAL CAPSULE 858677 CEFDINIR Inactive CEFDINIR 300 MG ORAL CAPSULE by mouth twice a day 2010 CEFDINIR 300 MG ORAL CAPSULE 833193 CEFDINIR Inactive CEFDINIR 300 MG ORAL CAPSULE by mouth twice a day 2010 CEFDINIR 300 MG ORAL CAPSULE 519392 CEFDINIR Inactive CEFDINIR 300 MG ORAL CAPSULE by mouth twice a day 2011 CEFDINIR 300 MG ORAL CAPSULE 048525 CEFDINIR Inactive ZITHROMAX 250 MG ORAL TABLET 2 po today, then 1 po q days 2-5 20 03/07/07 ZITHROMAX 250 MG ORAL TABLET 012078 AZITHROMYCIN Thorp ctive CEFDINIR 300 MG ORAL CAPSULE by mouth twice a day 2011 CEFDINIR 300 MG ORAL CAPSULE 956927 CEFDINIR Inactive PREDNISONE 20 MG ORAL TABLET 2 tabs daily for 3 days, 1 tab daily for 3 days, 1/2 tab daily for 2 days PREDNISONE 20 MG ORAL T ABLET 047956 PREDNISONE Inactive AVELOX 400 MG ORAL TABLET [...] days 11/07 PREDNISONE 20 MG ORAL TABLET 890559 PREDNISONE Inactive LEVAQUIN 500 MG ORAL TABLET take one po QD LEVAQUIN 500 MG ORAL TABLET 038709 LEVOFLOXACIN Inactive AZITHROMYCIN 250 MG ORAL TABLET 2 po qd x 1 day, then 1 po q d x 4 days AZITHROMYCIN 250 MG ORAL TABLET 609247 AZITHROMY GIOVANNI Inactive MEDROL 4 MG ORAL TABLET THERAPY PACK 6 tabs on day 1, 5 tabs on day 2, 4 tabs on day 3, 3 tabs on day 4, 2 tabs on day 5, 1 tab on day 6 2013 MEDROL 4 MG ORAL TABLET THERAPY PACK 602141 METHYLPREDNISOLONE Greer ctive CHERATUSSIN AC 100-10 MG/5ML ORAL SYRUP 5ml po q6hr PRN Cough 20 13/04/14 CHERATUSSIN AC 100-10 MG/5ML ORAL SYRUP 649156 GUAIFENE SIN-CODEINE Inactive TRIAMCINOLONE ACETONIDE 0.1 % EXTERNAL CREAM apply three roger es daily prn rash TRIAMCINOLONE ACETONIDE 0.1 % EXTERNAL CREAM 101 4314 TRIAMCINOLONE ACETONIDE Inactive AZITHROMYCIN 250 MG ORAL TABLET 2 po qd x 1 day, then 1 po q d x 4 days AZITHROMYCIN 250 MG ORAL TABLET 611876 AZITHROMY GIOVANNI Inactive MEDROL 4 MG ORAL TABLET THERAPY PACK 6 pills x 1 day, then 5 pills x 1 day then 4 pills x 1 day, then 3 pills x 1 day, then 2 pills x 1 day, then 1 pill x 1 day, then stop MEDROL 4 MG ORAL TABLET THERAPY PACK 274257 METHYLPREDNISOLONE Inactive AMOXICILLIN 500 MG ORAL CAPSULE 1 tab by mouth 3 times daily x 10 days AMOXICILLIN 500 MG ORAL CAPSULE 982048 AMOXICILL IN Inactive AMOXICILLIN 500 MG ORAL CAPSULE 1 tab by mouth 3 times daily x 10 days AMOXICILLIN 500 MG ORAL CAPSULE 853786 AMOXICILL IN Inactive ZITHROMAX 250 MG ORAL TABLET 2 po today, then 1 po q days 2-5 20 12/08/14 ZITHROMAX 250 MG ORAL TABLET 627363 AZITHROMYCIN Thorp ctive AUGMENTIN 875-125 MG ORAL TABLET 1 po BID x 10 days 20 13/01/20 AUGMENTIN 875-125 MG ORAL TABLET AMOXICILLIN-POT CLAVULANATE Inactive ZITHROMAX Z-REYNA 250 MG ORAL TABLET 2 today, then 1 daily for 4 d ays ZITHROMAX Z-REYNA 250 MG ORAL TABLET 110968 AZITHROMYCIN Inactive ZITHROMAX 250 MG ORAL TABLET 2 po today, then 1 po q days 2-5 20 14/03/21 ZITHROMAX 250 MG ORAL TABLET 405138 AZITHROMYCIN Thorp ctive ZITHROMAX Z-REYNA 250 MG ORAL TABLET 2 today, then 1 daily for 4 d ays ZITHROMAX Z-REYNA 250 MG ORAL TABLET 709152 AZITHROMYCIN Inactive CEFDINIR 300 MG ORAL CAPSULE 1 po BID x 10 days 06/21 CEFDINIR 300 MG ORAL CAPSULE 121943 CEFDINIR Inactive ZITHROMAX 250 MG ORAL TABLET 2 po today, then 1 po q days 2-5 20 13/08/10 ZITHROMAX 250 MG ORAL TABLET 360098 AZITHROMYCIN Greer ctive LEVAQUIN 500 MG ORAL TABLET 1 tablet by mouth daily 20 13/09/24 LEVAQUIN 500 MG ORAL TABLET 19971102 LEVOFLOXACIN Inactive SINGULAIR 10 MG ORAL TABLET 1 po qday for allergies 20 14/01/12 SINGULAIR 10 MG ORAL TABLET 20010504 MONTELUKAST SODIUM Inactive AMOXICILLIN 500 MG ORAL CAPSULE 2 po BID x 10 days 201 09/29/08 AMOXICILLIN 500 MG ORAL CAPSULE 137103 AMOXICILLIN Inactive PREDNISONE 20 MG ORAL TABLET 2 tabs daily for 3 days, 1 tab daily for 3 days, 1/2 tab daily for 2 days PREDNISONE 20 MG ORAL T ABLET 365598 PREDNISONE Inactive ZITHROMAX Z-REYNA 250 MG ORAL TABLET 2 today, then 1 daily for 4 d ays ZITHROMAX Z-REYNA 250 MG ORAL TABLET 693134 AZITHROMYCIN Inactive PREDNISONE 20 MG ORAL TABLET 2 tabs daily for 3 days, 1 tab daily for 3 days, 1/2 tab daily for 2 days PREDNISONE 20 MG ORAL T ABLET 406843 PREDNISONE Inactive ZITHROMAX 250 MG ORAL TABLET 2 po today, then 1 po q days 2-5 20 14/09/04 ZITHROMAX 250 MG ORAL TABLET 100914 AZITHROMYCIN Thorp ctive AMOXICILLIN 500 MG ORAL CAPSULE 1 cap by mouth three times a day AMOXICILLIN 500 MG ORAL CAPSULE 056617 AMOXICILLIN Inactive TERBINAFINE HCL 250 MG ORAL TABLET 1 qDay for nail fungus 7 TERBINAFINE HCL 250 MG ORAL TABLET 744978 TERBINAFINE HCL Inact nael AUGMENTIN 875-125 MG ORAL TABLET 1 po BID x 10 days 20 16/03/22 AUGMENTIN 875-125 MG ORAL TABLET AMOXICILLIN-POT CLAVULANATE Inactive PREDNISONE 20 MG ORAL TABLET 2 po qd x 5 days PREDNISONE 20 MG ORAL TABLET 957884 PREDNISONE Inactive AZITHROMYCIN 250 MG ORAL TABLET 2 po qd x 1 day, then 1 po q d x 4 days AZITHROMYCIN 250 MG ORAL TABLET 655810 AZITHROMY GIOVANNI Inactive PREDNISONE 50 MG ORAL TABLET Take 50 mg dialy for 6 day s 7 PREDNISONE 50 MG ORAL TABLET 032618 PREDNISONE Inactive AUGMENTIN 875-125 MG ORAL TABLET 1 po BID x 10 days 20 18/04/16 AUGMENTIN 875-125 MG ORAL TABLET AMOXICILLIN-POT CLAVULANATE Inactive DOXYCYCLINE HYCLATE 100 MG ORAL CAPSULE 1 cap by mouth twice latasha ly DOXYCYCLINE HYCLATE 100 MG ORAL CAPSULE 2321540 DOXYCYCL INE HYCLATE Inactive PREDNISONE 20 MG ORAL TABLET Take 2 tabs day 1 and 2 and 1 t ab days 3 and 4 PREDNISONE 20 MG ORAL TABLET 675252 PREDNISONE Inactive AMOXICILLIN 500 MG ORAL CAPSULE 1 cap by mouth twice daily 10/21 AMOXICILLIN 500 MG ORAL CAPSULE 255806 AMOXICILLIN Inactive TRIAMCINOLONE ACETONIDE 0.1 % EXTERNAL OINTMENT Apply to affected areas TID PRN Rash/Itching for up 2 weeks TRIAMCINOLON E ACETONIDE 0.1 % EXTERNAL OINTMENT 3256997 TRIAMCINOLONE ACETONIDE Inactive ACYCLOVIR 800 MG ORAL TABLET 1 po 5 times daily x 7 days ACYCLOVIR 800 MG ORAL TABLET 355400 ACYCLOVIR Inactive AMOXICILLIN-POT CLAVULANATE 875-125 MG ORAL TABLET 1 pill by mouth twice daily AMOXICILLIN-POT CLAVULANATE 875-125 MG ORAL TABL ET 440646 AMOXICILLIN-POT CLAVULANATE Inactive Vital Signs Date Name [...] Panel - Chemistry sodium, serum 137 mmol/L 753-951 8076/10/08 carbon dioxide, venous blood 29.9 mmol/L 21.0-32 [...] 0.50 mg/dL 0.00-1.00 cholesterol, serum 324 mg/dL 158-770 6461/10/08 triglyceride, serum, fasting 130 mg/dL 30-200 HDL [...] negative Encounters Code Encounter Date Provider Facility CPT-58224 Level 3 Est. Patient 14:41:20 CUSTOMER SUCCESS ASSOCIATE David riverae [facility] CPT-36788 [id number] Vst-Est Level IV 09:06:31 C DT Carlton Hu MD [facility] CPT-93070 Level 3 Est. Patient 14:16:41 CDT David Tin dle [facility] CPT-83268 Level 3 Est. Patient 13:57:55 CDT David Tin dle [facility] CPT-58692 Level 3 Est. Patient 16:08:07 CDT David Tin dle [facility] CPT-82911 Level 3 Est. Patient 16:53:54 CDT May haas MD [facility] CPT-50921 [id number] Vst-Est Level IV 08:41:08 Jadon Santos MD [facility] CPT-48261 Level 3 Est. Patient 09:46:49 CUSTOMER SUCCESS ASSOCIATE David Antonino riverae [facility] CPT-20026 [id number] Vst-Est Level III 11:12:16 CDT Yanet Bess DO [facility] CPT-93647 Level 3 Est. Patient 11:34:49 CUSTOMER SUCCESS ASSOCIATE Perez Mora MD [facility] CPT-53050 Level 4 Est. Patient 09:51:32 CUSTOMER SUCCESS ASSOCIATE Carlton rich MD [facility] CPT-00625 Level 3 Est. Patient 10:26:00 CUSTOMER SUCCESS ASSOCIATE Elise Hitchcock [facility] CPT-25885 Level 3 Est. Patient 13:35:41 CUSTOMER SUCCESS ASSOCIATE Carlton rich MD [facility] CPT-60074 Level 3 Est. Patient 10:03:52 CUSTOMER SUCCESS ASSOCIATE Carlton rich MD [facility] CPT-93978 Level 3 Est. Patient 12:17:50 CDT Hugo Restrepo MD [facility] CPT-66717 Level 3 Est. Patient 13:42:38 CDT Elise Hitchcock [facility] CPT-25709 Level 3 Est. Patient 13:23:51 CDT Diya cobian [facility] CPT-59500 Level 3 Est. Patient 14:22:19 CUSTOMER SUCCESS ASSOCIATE Diya cobian [facility] CPT-27779 Level 3 Est. Patient 10:11:46 CDT Carlton rich MD [facility] CPT-88544 Level 3 Est. Patient 17:29:43 CDT Elise Hitchcock [facility] CPT-21455 Level 3 Est. Patient 11:58:06 CDT Elise Hitchcock seema KHAN [facility] CPT-92674 Level 4 Est. Patient 14:36:51 CDT Carlton rich MD [facility]-05984 Level 3 Est. Patient 18:16:00 CUSTOMER SUCCESS ASSOCIATE Blaine Freeman [facility] CPT-85650 Level 3 Est. Patient 09:45:49 CUSTOMER SUCCESS ASSOCIATE Carlton rich MD [facility] CPT-56039 Level 3 Est. Patient 13:19:20 CDT Carlton rich MD [facility]-10359 Level 3 Est. Patient 13:06:43 CDT Ridge tam DO [facility] CPT-25807 Level 3 Est. Patient 10:03:07 CDT Perez Mora MD [facility] CPT-10560 Level 3 Est. Patient 19:50:35 CUSTOMER SUCCESS ASSOCIATE Carlton rich MD [facility] CPT-66046 Level 4 Est. Patient 18:05:01 CUSTOMER SUCCESS ASSOCIATE Carlton rich MD [facility] CPT-66276 Level 3 Est. Patient 10:45:55 CUSTOMER SUCCESS ASSOCIATE Hugo Restrepo MD [facility] CPT-92778 Level 3 Est. Patient 14:12:49 CDT Griffin lincoln [facility] CPT-38675 Level 3 Est. Patient 17:37:24 CDT Carlton rich MD [facility] CPT-50071 Level 3 Est. Patient 16:51:54 CDT Carlton rich MD [facility]-46055 Level 3 Est. Patient 12:18:11 CDT Hugo Restrepo MD [facility]-85955 Level 3 Est. Patient 11:30:25 CDT Marcy crisostomo MD PhD [facility] CPT-14640 Level 3 Est. Patient 12:00:47 CUSTOMER SUCCESS ASSOCIATE Carlton rich MD [facility] CPT-03464 Level 3 Est. Patient 16:31:06 CUSTOMER SUCCESS ASSOCIATE Carlton rich MD [facility] CPT-59467 Level 3 Est. Patient 16:23:24 CUSTOMER SUCCESS ASSOCIATE Ridge tam [facility] CPT-00189 Level 3 Est. Patient 12:34:12 CDT Carlton rich MD [facility] CPT-51561 Level 2 Est. Patient 15:43:33 CDT Robi armstrong MD [facility] CPT-05252 Level 4 Est. Patient 14:04:44 CDT Carlton rich MD [facility] CPT-83762 Level 3 Est. Patient 05:47:59 CDT Ridge tam [facility] CPT-31946 Level 3 Est. Patient 13:12:53 CUSTOMER SUCCESS ASSOCIATE Carlton rich MD [facility] CPT-20152 Level 3 Est. Patient 14:26:53 CDT Hugo Restrepo MD [facility] Procedures Code Procedure Name Date Entry Date Standard Desc ription [id number] (4274F 2P) Patient Reason Influenza immu nization not administered 14:13:39 CUSTOMER SUCCESS ASSOCIATE CPT-10072 Venipuncture Draw Fee 15:53:34 CDT CPT-000 Give Appropriate Flu Vaccine 14:14:31 CDT CPT-J1040 Depo Medrol 80 mg (Methyl Prednisolone A cetate) 10:42:44 CDT CPT-J1100 Decadron 8mg (Dexamethasone) 10:42:44 CDT 2 CPT-J0696 Rocephin 1gm Inj Solr 14:32:13 CDT CPT-J1020 Depo Medrol 60 mg (Methyl Prednisolone A cetate) 14:32:13 CDT CPT-J1100 Decadron 6mg (Dexamethasone) 14:32:13 CDT 2 CPT-56761 Hip bilat min 2V w AP pelvis 13:16:20 CDT 2 CPT-92364 Pelvis only 13:07:33 CDT CPT-10605 Spec Collection and Handling Fee 11:25:12 C DT CPT-84017 Fluzone Quadrivalent Intramuscular Suspe nsion 0.5 ML 14:31:55 CDT CPT-26158 Abx/Therapy Injection 13:28:47 CUSTOMER SUCCESS ASSOCIATE CPT-J2930 Solu Medrol 125 mg (Methyl Prednisolone Sodium Succinate) 12:00:47 CUSTOMER SUCCESS ASSOCIATE CPT-86588 Venipuncture Draw Fee 11:33:31 CDT CPT-49229 EKG Trac and Interp 11:21:09 CDT CPT-38789 Chest 2V Frontal and Lat 11:21:09 CDT 12/15 CPT-63678 Venipuncture Draw Fee 08:02:34 CDT CPT-51857 Chest 2V Frontal and Lat 05:47:59 CDT 06/05
--- OUTSIDE RECORDS SUMMARY | 2019-10-08 08:48 | XMS REPORT | Clinical Summary ---
Author Author Caitlin, Juliana Martinez Organization [facility] Address Unknown Phone Unavailable Allergies, Adverse [...] URI 465.9 Inactive Ridge Bess DO Ac [place] upper respiratory infections of unspecified site Body Mass Index 35.0-35.9 Adult Refinement 2017 Ridge Bess DO Body Mass Index 35.0-35.9, adult BMI 34-34.9 Refinement Cherelle Torres RN Body Mass Index 35.0-35.9, adult BMI 35-35.9 Refinement 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amisha RICEN Body Mass Index 35.0-35.9, adult BMI 34-34.9 Refinement May Vivar MD Body Mass Index 35.0-35.9, adult BMI 35-35.9 Refinement 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 MATTRESS STUFFER Body Mass Index 35.0-35.9, adult BMI 33-33.9 Active 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 MATTRESS STUFFER Body Mass Index 35.0-35.9, adult Upper respiratory infection, viral 465.9 Active 2 Perez Mora MD Acute upper respiratory infections of un specified site Obesity Class I (BMI 30-34.9) Refinement Jose Torres RN Obesity, unspecified Morbid obesity due to excess calories [facility] 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amisha RICEN Obesity, unspecified Obesity [...] nonspecific skin eruption 782.1 Active 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 MATTRESS STUFFER Rash and other nonspecific skin eruption Pharyngitis, acute / sore throat 462 Active 201 12/06/23 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 MATTRESS STUFFER Acute pharyngitis Shingles 053.9 Active 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 MATTRESS STUFFER Herpes zoster without mention of complication Allergic [...] Generic Name NDC Status Provider Patient Instruction GUAIFENESIN-CODEINE 100-10 MG/5ML ORAL SYRUP 1 tsp PO q6h PRN co ugh GUAIFENESIN-CODEINE 53351061054 Active 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 MATTRESS STUFFER Active AMOXICILLIN-POT CLAVULANATE 875-125 MG ORAL TABLET 1 pill by mouth twice daily AMOXICILLIN-POT CLAVULANATE 68519703995 Active 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 MATTRESS STUFFER Active DULOXETINE HCL 60 MG ORAL CAPSULE DELAYED RELEASE PART ICLES TAKE 1 CAPSULE BY MOUTH ONCE DAILY FOR PAIN AND MOOD DULOXETINE HCL 002 74121246 Active Carlton Hu MD Active TRAMADOL HCL 50 MG TABS TAKE 1 TABLET BY MOUTH THREE TIMES DAILY WITH EXTRA STRENGTH TYLENOL TRAMADOL HCL 21115417187 Active Carlton Hu MD Active ALPRAZOLAM 0.5 MG TABS TAKE 1 TABLET BY MOUTH ONCE DAILY NEEDED ALPRAZOLAM 07989138739 Active Carlton Hu MD Active GABAPENTIN 100 MG ORAL CAPSULE TAKE 1 CAPSULE BY MOUTH TWICE DAILY FOR FIBROMYALGIA GABAPENTIN 06584825174 Active Carlton Hu MD Active ELMIRON 100MG CAP TAKE 2 CAPSULES BY MOUTH IN THE MORNING AND 1 CAPSULE AT BEDTIME PENTOSAN POLYSULFATE SODIUM 14518790133 Active May Vivar MD Active TOPIRAMATE 100 MG TABS TAKE 1 TABLET BY MOUTH TWICE DAILY 1 TOPIRAMATE 23188981676 Active Carlton Hu MD Active ATORVASTATIN CALCIUM 10 MG ORAL TABLET 1 pill by mouth night ly, for cholesterol ATORVASTATIN CALCIUM 56290116205 Active Columba Francois Active TRIAMCINOLONE ACETONIDE 0.1 % EXTERNAL CREAM apply bid spari ngly to rash TRIAMCINOLONE ACETONIDE 27776243280 No Longer Active Carlton Hu MD Active TYLENOL WITH CODEINE #3 300-30 MG ORAL TABLET ACETAMINOPHEN-CODEINE 88281166241 No Longer Active Carlton Hu MD Active TYLENOL WITH CODEINE #3 300-30 MG ORAL TABLET 1-2 po q6hr PRN Pa in ACETAMINOPHEN-CODEINE 45938047075 No Longer Active David Lopes AP RN Active ACYCLOVIR 800 MG ORAL TABLET 1 po 5 times daily x 7 days ACYCLOVIR 27766435557 No Longer Active 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 MATTRESS STUFFER Active TOPAMAX 100 MG ORAL TABLET 1 by mouth twice daily TOPIRAMATE 02073919577 Active Carlton Hu MD Active TRIAMCINOLONE ACETONIDE 0.1 % EXTERNAL OINTMENT Apply to affected areas TID PRN Rash/Itching for up 2 weeks TRIAMCINOLONE ACETON KAYLA 66364737538 No Longer Active 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 MATTRESS STUFFER Active AMOXICILLIN 500 MG ORAL CAPSULE 1 cap by mouth twice daily 10/21 AMOXICILLIN 91999676777 No Longer Active David Marianne MATTRESS STUFFER Active CYMBALTA 30 MG ORAL CAPSULE DELAYED RELEASE PARTICLES 1 cap by mouth daily for depression DULOXETINE HCL 41028734609 No Longer Active Carlton Hu MD Active TUSSIONEX PENNKINETIC ER 10-8 MG/5ML ORAL SUSPENSION E XTENDED RELEASE 5ml po q12hr PRN Cough HYDROCOD POLST-CHLORPHEN POLST 24124152416 Active Carlton Hu MD Active PREDNISONE 20 MG ORAL TABLET Take 2 tabs day 1 and 2 and 1 t ab days 3 and 4 PREDNISONE 35336068182 No Longer Active David Marianne MATTRESS STUFFER Active DOXYCYCLINE HYCLATE 100 MG ORAL CAPSULE 1 cap by mouth twice latasha ly DOXYCYCLINE HYCLATE 84105832636 No Longer Active David Marianne MATTRESS STUFFER Active TOPAMAX 100 MG ORAL TABLET Take 1 tablet po bid TOPIRAMATE 04826349447 No Longer Active David Marianne MATTRESS STUFFER Active TUSSIONEX PENNKINETIC ER 10-8 MG/5ML ORAL SUSPENSION E XTENDED RELEASE 5ml po q12hr PRN Cough HYDROCOD POLST-CHLORPHEN POLST 5 5938534615 No Longer Active David Marianne MATTRESS STUFFER Active AUGMENTIN 875-125 MG ORAL TABLET 1 po BID x 10 days 18/04/16 AMOXICILLIN-POT CLAVULANATE 09140668630 No Longer Active David Marianne MATTRESS STUFFER Active PREDNISONE 50 MG ORAL TABLET Take 50 mg dialy for 6 day s 7 PREDNISONE 32573824902 No Longer Active David Marianen MATTRESS STUFFER Active TUSSIONEX PENNKINETIC ER 10-8 MG/5ML ORAL SUSPENSION E XTENDED RELEASE 5ml po q12hr PRN Cough HYDROCOD POLST-CHLORPHEN POLST 5 6056816317 No Longer Active Cherelle Torres RN Active PREDNISONE 20 MG ORAL TABLET two tabs by mouth today, then one tab by mouth days two and three and four PREDNISONE 10937974212 No Lo nger Active Cherelle Torres RN Active AZITHROMYCIN 250 MG ORAL TABLET 2 po qd x 1 day, then 1 po q d x 4 days AZITHROMYCIN 48549602787 No Longer Active Ridge Bess DO Active PREDNISONE 20 MG ORAL TABLET 2 po qd x 5 days P REDNISONE 61074049257 No Longer Active Perez Mora MD Active PROAIR HFA 108 (90 BASE) MCG/ACT INHALATION AEROSOL SO LUTION 2 puffs four times a day as needed ALBUTEROL SULFATE 61162220222 No Long er Active Becky Cuellar JEFFA Active ASPIRIN 81 MG ORAL TABLET 1 po qd ASPIRIN 56925690100 Active Carlton Hu MD Active PREDNISONE 20 MG ORAL TABLET 1 tab twice daily for 3 d ay, then one daily for three days PREDNISONE 86517329137 No Longer Active Carlton Hu MD Active AUGMENTIN 875-125 MG ORAL TABLET 1 po BID x 10 days 16/03/22 AMOXICILLIN-POT CLAVULANATE 46933196970 No Longer Active Elise Garcia APRN Active TERBINAFINE HCL 250 MG ORAL TABLET 1 qDay for nail fungus 7 TERBINAFINE HCL 18784629065 No Longer Active Carlton Hu MD A ctive AMOXICILLIN 500 MG ORAL CAPSULE 1 cap by mouth three times a day AMOXICILLIN 35925547025 No Longer Active Carlton Hu MD Active ELMIRON 100 MG ORAL CAPSULE 2 tablets in the am and 1 tablet at hs PENTOSAN POLYSULFATE SODIUM 34423813520 No Longer Active Robert jade Hu MD Active MUCINEX D 60-600 MG ORAL TABLET EXTENDED RELEASE 12 HOUR 1 t ab po q am PSEUDOEPHEDRINE-GUAIFENESIN 72213080831 No Longer Act nael Carlton Hu MD Active MUCINEX DM MAXIMUM STRENGTH 60-1200 MG ORAL TABLET EXT ENDED RELEASE 12 HOUR 1 tab po q am DEXTROMETHORPHAN-GUAIFENESIN 61095394489 No Longer Active Carlton Hu MD Active TUSSIONEX PENNKINETIC ER 10-8 MG/5ML ORAL SUSPENSION E XTENDED RELEASE 5ml po q12hr PRN Cough HYDROCOD POLST-CHLORPHEN POLST 5 7505049713 No Longer Active Carlton Hu MD Active POTASSIUM CHLORIDE ER 20 MEQ ORAL TABLET EXTENDED RELE ASE Take 1 by mouth 4 times daily for 7 days POTASSIUM CHLORIDE 23477179887 No Longer Active Carlton Hu MD Active ZITHROMAX 250 MG ORAL TABLET 2 po today, then 1 po q days 2-5 20 14/09/04 AZITHROMYCIN 38145594422 No Longer Active Elise Garcia APRN Active TUSSIONEX PENNKINETIC ER 10-8 MG/5ML ORAL SUSPENSION E XTENDED RELEASE 5 ml twice a day as needed for cough HYDROCOD POLST-CHLORPH EN POLST 79039664189 No Longer Active Elise Garcia APRN Active MONTELUKAST SODIUM 10 MG ORAL TABLET 1 po daily for Allergy MONTELUKAST SODIUM 95259907010 Active Carlton Hu MD Ac tive TUSSIONEX PENNKINETIC ER 10-8 MG/5ML ORAL SUSPENSION E XTENDED RELEASE 5ml po q12hr PRN Cough HYDROCOD POLST-CHLORPHEN POLST 5 7205192627 No Longer Active Hugo Restrepo MD Active LYRICA 100 MG ORAL CAPSULE Take 1 tab po BID for fibromyalgia 20 11/08/21 PREGABALIN 14223250192 No Longer Active Elise Garcia APRN A ctive PREDNISONE 20 MG ORAL TABLET 2 tabs daily for 3 days, 1 tab daily for 3 days, 1/2 tab daily for 2 days PREDNISONE 66113533412 No Longer Active Diya De Guzman APRN Active TUSSIONEX PENNKINETIC ER 10-8 MG/5ML ORAL SUSPENSION E XTENDED RELEASE 5 mL PO q 12 hrs PRN cough HYDROCOD POLST-CHLORPHEN POLST 556380 35553 No Longer Active Jillina Gege KHAN Active FLUTICASONE PROPIONATE 50 MCG/ACT NASAL SUSPENSION 2 s prays each nostril daily until bottle is empty FLUTICASONE PROPIONATE 832085850 99 No Longer Active Jillina Gege RICEN Active ASMANEX 60 METERED DOSES 220 MCG/INH INHALATION AEROSO L POWDER BREATH ACTIVATED 1 puff bid with rinse after MOMETASONE FUROATE 3590691 4102 No Longer Active Diya De Guzman APRN Active ZITHROMAX Z-REYNA 250 MG ORAL TABLET 2 today, then 1 daily for 4 d ays AZITHROMYCIN 27196034925 No Longer Active Elise Garcia APRN Active TUSSIONEX PENNKINETIC ER 10-8 MG/5ML ORAL SUSPENSION E XTENDED RELEASE 5ml po q12hr PRN Cough HYDROCOD POLST-CHLORPHEN POLST 5 1524438556 No Longer Active Elise Garcia APRN Active PREDNISONE 20 MG ORAL TABLET 2 tabs daily for 3 days, 1 tab daily for 3 days, 1/2 tab daily for 2 days PREDNISONE 81128480060 No Longer Active Diya De Guzman APRN Active AMOXICILLIN 500 MG ORAL CAPSULE 2 po BID x 10 days 201 09/29/08 AMOXICILLIN 56699537799 No Longer Active Diya De Guzman APRN Act nael SINGULAIR 10 MG ORAL TABLET 1 po qday for allergies 20 14/01/12 MONTELUKAST SODIUM 33717123791 No Longer Active Carlton Hu MD Active LEVAQUIN 500 MG ORAL TABLET 1 tablet by mouth daily 20 13/09/24 LEVOFLOXACIN 77372962968 No Longer Active Carlton Hu MD Acti ve FLUTICASONE PROPIONATE 50 MCG/ACT NASAL SUSPENSION 2 s prays each nostril daily for 2 weeks, then 1 spray each nostril daily. FLUTICASONE PROPIONATE 89558865673 Active Carlton Hu MD Active ZITHROMAX 250 MG ORAL TABLET 2 po today, then 1 po q days 2-5 20 13/08/10 AZITHROMYCIN 28648765613 No Longer Active Elise Garcia APRN Active CEFDINIR 300 MG ORAL CAPSULE 1 po BID x 10 days CEFDINIR 44688572450 No Longer Active Carlton Hu MD Active ZOCOR 40 MG ORAL TABLET 1 tab by mouth daily SI MVASTATIN 36085860677 No Longer Active Carlton Hu MD Active CYCLOBENZAPRINE HCL 10 MG ORAL TABLET 1 tablet by mouth BID prn had pain CYCLOBENZAPRINE HCL 83042954379 No Longer Active Jayden Hu MD Active LEVOFLOXACIN 500 MG ORAL TABLET 1 tab PO daily x 10 days LEVOFLOXACIN 02335216265 No Longer Active Carlton Hu MD Acti ve PREDNISONE 20 MG ORAL TABLET 3 tab PO qd x 2d, 2 tab P O qd x 2d, 1 tab PO qd x 2d, 1/2 tab PO qd x 2d PREDNISONE 70094126424 No Lo nger Active Carlton Hu MD Active FLUTICASONE PROPIONATE 50 MCG/ACT NASAL SUSPENSION 1 t o 2 sprays each nostril daily FLUTICASONE PROPIONATE 65588272380 No Longer Ac tive Blaine HERNANDEZ Active CHERATUSSIN AC 100-10 MG/5ML ORAL SYRUP 1 tsp by mouth every 4 hours as needed for cough GUAIFENESIN-CODEINE 36037894046 No Longe r Active Blaine HERNANDEZ Active PROMETHAZINE-CODEINE 6.25-10 MG/5ML ORAL SYRUP 1 tsp b y mouth every 6 hours if needed for cough PROMETHAZINE-CODEINE 70666290129 No Longer Active Blaine HERNANDEZ Active CHERATUSSIN AC 100-10 MG/5ML ORAL SYRUP 1 tsp by mouth every 4 hours as needed for cough GUAIFENESIN-CODEINE 56404003975 No Longe r Active Blaine HERNANDEZ Active ZITHROMAX Z-REYNA 250 MG ORAL TABLET 2 today, then 1 daily for 4 d ays AZITHROMYCIN 99254590515 No Longer Active Columba Parrish Act nael ZITHROMAX 250 MG ORAL TABLET 2 po today, then 1 po q days 2-5 20 14/03/21 AZITHROMYCIN 90535215125 No Longer Active Carlton Hu MD Active ZITHROMAX Z-REYNA 250 MG ORAL TABLET 2 today, then 1 daily for 4 d ays AZITHROMYCIN 07893648106 No Longer Active Columba Parrish Act nael AUGMENTIN 875-125 MG ORAL TABLET 1 po BID x 10 days 20 13/01/20 AMOXICILLIN-POT CLAVULANATE 20040417050 No Longer Active Venuriley Daphnebrayan KHAN Active ZITHROMAX 250 MG ORAL TABLET 2 po today, then 1 po q days 2-5 20 12/08/14 AZITHROMYCIN 96119995727 No Longer Active Carlton Hu MD Active PREMARIN 0.625 MG ORAL TABLET TAKE 1 TAB BY MOUTH DAILY ESTROGENS CONJUGATED 49177868322 No Longer Active Ridge Bess DO A ctive CYMBALTA 30 MG ORAL CAPSULE DELAYED RELEASE PARTICLES 1 cap by mouth daily DULOXETINE HCL 97181620565 No Longer Active Ridge tam DO Active AMOXICILLIN 500 MG ORAL CAPSULE 1 tab by mouth 3 times daily x 10 days AMOXICILLIN 89977977863 No Longer Active Carlton bustamante MD Active AMOXICILLIN 500 MG ORAL CAPSULE 1 tab by mouth 3 times daily x 10 days AMOXICILLIN 82691529284 No Longer Active Carlton bustamante MD Active PROMETHAZINE-CODEINE 6.25-10 MG/5ML ORAL SYRUP 1 tsp b y mouth every 8 hours prn cough PROMETHAZINE-CODEINE 47633342348 No Longer Acti ve Carlton Hu MD Active MEDROL 4 MG ORAL TABLET THERAPY PACK 6 pills x 1 day, then 5 pills x 1 day then 4 pills x 1 day, then 3 pills x 1 day, then 2 pills x 1 day, then 1 pill x 1 day, then stop METHYLPREDNISOLONE 91898501259 No Long er Active Perez Mora MD Active AZITHROMYCIN 250 MG ORAL TABLET 2 po qd x 1 day, then 1 po q d x 4 days AZITHROMYCIN 84875829775 No Longer Active Perez Ambriz MD Active SYMBICORT 160-4.5 MCG/ACT INHALATION AEROSOL 2 puffs bid wit h rinse after BUDESONIDE-FORMOTEROL FUMARATE 73540593491 N o Longer Active Perez Mora MD Active LYRICA 75 MG ORAL CAPSULE TAKE 1 CAPSULE BY MOUTH TWICE DAILY PREGABALIN 42121247584 No Longer Active Carlton Hu MD Acti ve TOPAMAX 25 MG ORAL TABLET 1 qHS x 1 week, then 1 BID x 1 week, then 1 qAM and 2 qHS x 1 week, then 2 BID (migraine prevention) T OPIRAMATE 88165847089 No Longer Active Jerica FUENTES Active TOPAMAX 50 MG ORAL TABLET take 1 tab po BID for migraines. 07/02 TOPIRAMATE 65692940625 No Longer Active Jerica FUENTES Active TRIAMCINOLONE ACETONIDE 0.1 % EXTERNAL CREAM apply three roger es daily prn rash TRIAMCINOLONE ACETONIDE 05761970617 No Longer Active Carlton Hu MD Active PAXIL 40 MG ORAL TABLET take 1 tab po qday for depression 0 PAROXETINE HCL 80417906712 Active Carlton Hu MD Active CHERATUSSIN AC 100-10 MG/5ML ORAL SYRUP 5ml po q6hr PRN Cough 20 13/04/14 GUAIFENESIN-CODEINE 71740966984 No Longer Active Carlton Hu MD Active MEDROL 4 MG ORAL TABLET THERAPY PACK 6 tabs on day 1, 5 tabs on day 2, 4 tabs on day 3, 3 tabs on day 4, 2 tabs on day 5, 1 tab on day 6 2013 METHYLPREDNISOLONE 07073427104 No Longer Active Perez Mora MD Active AZITHROMYCIN 250 MG ORAL TABLET 2 po qd x 1 day, then 1 po q d x 4 days AZITHROMYCIN 84735108353 No Longer Active Perez Ambriz MD Active PROPRANOLOL HCL 60 MG ORAL TABLET 1 PO Q D PROPRANOLOL HCL 60423292993 No Longer Active Perez Mora MD Activ e CHERATUSSIN AC 100-10 MG/5ML ORAL SYRUP take one tsp po Q 6h ours prn cough GUAIFENESIN-CODEINE 91879342774 No Longer Active Zia Mora MD Active AUGMENTIN 875-125 MG ORAL TABLET 1 tab by mouth twice daily with food AMOXICILLIN-POT CLAVULANATE 98307875342 No Longer Act nael Perez Mora MD Active CHERATUSSIN AC 100-10 MG/5ML ORAL SYRUP 1 tsp by mouth every 4 hours as needed for cough GUAIFENESIN-CODEINE 20655913089 No Longe r Active Hugo Restrepo MD Active ACETAMINOPHEN-CODEINE #3 300-30 MG ORAL TABLET 1 PO Q 4-6 HRS LA N PAIN ACETAMINOPHEN-CODEINE 06798915758 No Longer Active Hugo Restrepo MD Active LEVAQUIN 500 MG ORAL TABLET take one po QD LEVO FLOXACIN 31646898613 No Longer Active Griffin HERNANDEZ Active PREDNISONE 20 MG ORAL TABLET Take 3 tabs daily for 3 d ays, 2 tabs daily for 3 days, 1 tab daily for 3 days, 1/2 tab daily for 3 days 11/07 PREDNISONE 32000104487 No Longer Active Carlton Hu MD Acti ve AVELOX 400 MG ORAL TABLET 1 tab by mouth daily MOXIFLOXACIN HCL 24697421616 No Longer Active Carlton Hu MD Active CHERATUSSIN AC 100-10 MG/5ML ORAL SYRUP 1 tsp by mouth every 4 hours as needed for cough GUAIFENESIN-CODEINE 04041508177 No Longe r Active Hugo Restrepo MD Active AVELOX 400 MG ORAL TABLET 1 tab by mouth daily MOXIFLOXACIN HCL 24492511201 No Longer Active Marcy De La Rosa MD PhD Active TERBINAFINE HCL 250 MG ORAL TABLET 1 qDay T ERBINAFINE HCL 29544560319 No Longer Active Marcy De La Rosa MD PhD Active CHERATUSSIN AC 100-10 MG/5ML ORAL SYRUP 1 tsp by mouth every 4 hours as needed for cough GUAIFENESIN-CODEINE 11464021129 No Longe r Active Marcy De La Rosa MD PhD Active AVELOX 400 MG ORAL TABLET 1 tab by mouth daily MOXIFLOXACIN HCL 10420938473 No Longer Active Marcy De La Rosa MD PhD Active HYDROCODONE-ACETAMINOPHEN 5-325 MG ORAL TABLET 1 po q 6hr PRN co ugh HYDROCODONE-ACETAMINOPHEN 12184779168 No Longer Active Marcy De La Rosa MD PhD Active PREDNISONE 20 MG ORAL TABLET 2 tabs daily for 3 days, 1 tab daily for 3 days, 1/2 tab daily for 2 days PREDNISONE 33639718304 No Longer Active Carlton Hu MD Active CEFDINIR 300 MG ORAL CAPSULE by mouth twice a day 2011 CEFDINIR 52066960064 No Longer Active Carlton Hu MD Acti ve HYDROCHLOROTHIAZIDE 25 MG ORAL TABLET 1 TAB PO DAILY HYDROCHLOROTHIAZIDE 73254808778 Active Carlton Hu MD A ctive ACETAMINOPHEN-CODEINE #3 300-30 MG ORAL TABLET 1 tablet po q 4-6 hrs prn pain ACETAMINOPHEN-CODEINE 01297604746 No Longer Active Ridge Bess DO Active ZITHROMAX 250 MG ORAL TABLET 2 po today, then 1 po q days 2-5 20 03/07/07 AZITHROMYCIN 90917359937 No Longer Active Carlton Hu MD Active CHERATUSSIN AC 100-10 MG/5ML ORAL SYRUP take 1 tsp po q4-6 h ours prn cough GUAIFENESIN-CODEINE 29922891034 No Longer Active Jayden Hu MD Active ACETAMINOPHEN-CODEINE #3 300-30 MG ORAL TABLET 1 PO Q 4-6 HR PRN PAIN ACETAMINOPHEN-CODEINE 98095817988 No Longer Active Arnol Hu MD Active LORTAB 7.5-500 MG/15ML ORAL ELIXIR 7.5 ml po q 4 hour prn cough HYDROCODONE-ACETAMINOPHEN 71832271580 No Longer Active Carlton Hu MD Active PREDNISONE 20 MG ORAL TABLET 1 po bid 3 days, then 1 po q day 3 days PREDNISONE 70193543409 No Longer Active Carlton Hu MD Active CEFDINIR 300 MG ORAL CAPSULE by mouth twice a day 2011 CEFDINIR 94003762999 No Longer Active Carlton Hu MD Acti ve CEFDINIR 300 MG ORAL CAPSULE by mouth twice a day 2010 CEFDINIR 16978523906 No Longer Active Carlton Hu MD Acti ve CEFDINIR 300 MG ORAL CAPSULE by mouth twice a day 2010 CEFDINIR 16402448041 No Longer Active Carlton Hu MD Acti ve TESSALON PERLES 100 MG ORAL CAPSULE 1 tablet by mouth 3 times daily as needed for cough BENZONATATE 44014643335 No Longer Active Carlton Hu MD Active CEFDINIR 300 MG ORAL CAPSULE by mouth twice a day 2010 CEFDINIR 59858672488 No Longer Active Carlton Hu MD Acti ve ZITHROMAX Z-REYNA 250 MG ORAL TABLET 2 today, then 1 daily for 4 d ays AZITHROMYCIN 53387488689 No Longer Active Hugo Restrepo MD Active TESSALON PERLES 100 MG ORAL CAPSULE 1 tablet by mouth 3 times daily as needed for cough TESSALON PERLES 100 MG ORAL CAPSULE 30421 7 BENZONATATE Inactive PREDNISONE 20 MG ORAL TABLET 1 po bid 3 days, then 1 po q day 3 days PREDNISONE 20 MG ORAL TABLET 172316 PREDNISONE [place] ctive LORTAB 7.5-500 MG/15ML ORAL ELIXIR 7.5 ml po q 4 hour prn cough LORTAB 7.5-500 MG/15ML ORAL ELIXIR HYDROCODONE-A CETAMINOPHEN Inactive ACETAMINOPHEN-CODEINE #3 300-30 MG ORAL TABLET 1 PO Q 4-6 HR PRN PAIN ACETAMINOPHEN-CODEINE #3 300-30 MG ORAL TABLET 9 77793 ACETAMINOPHEN-CODEINE Inactive CHERATUSSIN AC 100-10 MG/5ML ORAL SYRUP take 1 tsp po q4-6 h ours prn cough CHERATUSSIN AC 100-10 MG/5ML ORAL SYRUP 902146 GUAIFENESIN-CODEINE Inactive ACETAMINOPHEN-CODEINE #3 300-30 MG ORAL TABLET 1 tablet po q 4-6 hrs prn pain ACETAMINOPHEN-CODEINE #3 300-30 MG ORAL TABLET 927055 ACETAMINOPHEN-CODEINE Inactive HYDROCODONE-ACETAMINOPHEN 5-325 MG ORAL TABLET 1 po q 6hr PRN co ugh HYDROCODONE-ACETAMINOPHEN 5-325 MG ORAL TABLET 808359 HYDROCODONE-ACETAMINOPHEN Inactive AVELOX 400 MG ORAL TABLET 1 tab by mouth daily AVELOX 400 MG ORAL TABLET MOXIFLOXACIN HCL Inactive CHERATUSSIN AC 100-10 MG/5ML ORAL SYRUP 1 tsp by mouth every 4 hours as needed for cough CHERATUSSIN AC 100-10 MG/5ML ORAL SYRUP 9 38937 GUAIFENESIN-CODEINE Inactive TERBINAFINE HCL 250 MG ORAL TABLET 1 qDay 07/08 TERBINAFINE HCL 250 MG ORAL TABLET 947135 TERBINAFINE HCL Inactive CHERATUSSIN AC 100-10 MG/5ML ORAL SYRUP 1 tsp by mouth every 4 hours as needed for cough CHERATUSSIN AC 100-10 MG/5ML ORAL SYRUP 9 94862 GUAIFENESIN-CODEINE Inactive ACETAMINOPHEN-CODEINE #3 300-30 MG ORAL TABLET 1 PO Q 4-6 HRS LA N PAIN ACETAMINOPHEN-CODEINE #3 300-30 MG ORAL TABLET 553313 ACETAMINOPHEN-CODEINE Inactive CHERATUSSIN AC 100-10 MG/5ML ORAL SYRUP 1 tsp by mouth every 4 hours as needed for cough CHERATUSSIN AC 100-10 MG/5ML ORAL SYRUP 9 55960 GUAIFENESIN-CODEINE Inactive AUGMENTIN 875-125 MG ORAL TABLET 1 tab by mouth twice daily with food AUGMENTIN 875-125 MG ORAL TABLET AMOXICIL MADELINE-POT CLAVULANATE Inactive CHERATUSSIN AC 100-10 MG/5ML ORAL SYRUP take one tsp po Q 6h ours prn cough CHERATUSSIN AC 100-10 MG/5ML ORAL SYRUP 138186 GUAIFENESIN-CODEINE Inactive PROPRANOLOL HCL 60 MG ORAL TABLET 1 PO Q D PROPRANOLOL HCL 60 MG ORAL TABLET 284178 PROPRANOLOL HCL Inactive TOPAMAX 50 MG ORAL TABLET take 1 tab po BID for migraines. 07/02 TOPAMAX 50 MG ORAL TABLET 946851 TOPIRAMATE Inacti ve TOPAMAX 25 MG ORAL TABLET 1 qHS x 1 week, then 1 BID x 1 week, then 1 qAM and 2 qHS x 1 week, then 2 BID (migraine prevention) TOPAMAX 25 MG ORAL TABLET 634661 TOPIRAMATE Inactive LYRICA 75 MG ORAL CAPSULE TAKE 1 CAPSULE BY MOUTH TWICE DAILY LYRICA 75 MG ORAL CAPSULE 766845 PREGABALIN Inactive SYMBICORT 160-4.5 MCG/ACT INHALATION AEROSOL 2 puffs bid wit h rinse after SYMBICORT 160-4.5 MCG/ACT INHALATION AEROSOL BUDESONIDE- FORMOTEROL FUMARATE Inactive PROMETHAZINE-CODEINE 6.25-10 MG/5ML ORAL SYRUP 1 tsp b y mouth every 8 hours prn cough PROMETHAZINE-CODEINE 6.25-10 MG/ 5ML ORAL SYRUP 761348 PROMETHAZINE-CODEINE Inactive CYMBALTA 30 MG ORAL CAPSULE DELAYED RELEASE PARTICLES 1 cap by mouth daily CYMBALTA 30 MG ORAL CAPSULE DELAYED RELE ASE PARTICLES 629608 DULOXETINE HCL Inactive PREMARIN 0.625 MG ORAL TABLET TAKE 1 TAB BY MOUTH DAILY PREMARIN 0.625 MG ORAL TABLET ESTROGENS CONJUGATED Inactive CHERATUSSIN AC 100-10 MG/5ML ORAL SYRUP 1 tsp by mouth every 4 hours as needed for cough CHERATUSSIN AC 100-10 MG/5ML ORAL SYRUP 9 27699 GUAIFENESIN-CODEINE Inactive PROMETHAZINE-CODEINE 6.25-10 MG/5ML ORAL SYRUP 1 tsp b y mouth every 6 hours if needed for cough PROMETHAZINE-CODEINE 6.25-10 MG/5ML ORAL SYRUP 440775 PROMETHAZINE-CODEINE Inactive CHERATUSSIN AC 100-10 MG/5ML ORAL SYRUP 1 tsp by mouth every 4 hours as needed for cough CHERATUSSIN AC 100-10 MG/5ML ORAL SYRUP 9 86897 GUAIFENESIN-CODEINE Inactive FLUTICASONE PROPIONATE 50 MCG/ACT NASAL SUSPENSION 1 t o 2 sprays each nostril daily FLUTICASONE PROPIONATE 50 MCG/AC T NASAL SUSPENSION 1041254 FLUTICASONE PROPIONATE Inactive PREDNISONE 20 MG ORAL TABLET 3 tab PO qd x 2d, 2 tab P O qd x 2d, 1 tab PO qd x 2d, 1/2 tab PO qd x 2d PREDNISONE 20 MG ORAL TAB LET 119395 PREDNISONE Inactive LEVOFLOXACIN 500 MG ORAL TABLET 1 tab PO daily x 10 days LEVOFLOXACIN 500 MG ORAL TABLET 308671 LEVOFLOXACIN Inactive CYCLOBENZAPRINE HCL 10 MG ORAL TABLET 1 tablet by mouth BID prn had pain CYCLOBENZAPRINE HCL 10 MG ORAL TABLET 433362 CYCLOBENZAPRINE HCL Inactive ZOCOR 40 MG ORAL TABLET 1 tab by mouth daily 4 ZOCOR 40 MG ORAL TABLET 231466 SIMVASTATIN Inactive TUSSIONEX PENNKINETIC ER 10-8 MG/5ML [...] FLUTICASONE PROPIO EFE 50 MCG/ACT NASAL SUSPENSION 7085874 FLUTICASONE PROPIONATE Inactive TUSSIONEX PENNKINETIC ER 10-8 MG/5ML ORAL SUSPENSION E XTENDED RELEASE 5 mL PO q 12 hrs PRN cough TUSSIONEX PENNKINETI C ER 10-8 MG/5ML ORAL SUSPENSION EXTENDED RELEASE HYDROCOD POLST-CHLORPHEN POLST I nactive LYRICA 100 MG ORAL CAPSULE Take 1 tab po BID for fibromyalgia 11/08/21 LYRICA 100 MG ORAL CAPSULE [id number] PREGABALIN Inact nael TUSSIONEX PENNKINETIC ER 10-8 [...] three days PREDNISONE 20 MG ORAL TABLET [id number] PREDNIS ONE Inactive PROAIR HFA 108 (90 BASE) MCG/ACT INHALATION AEROSOL SO LUTION 2 puffs four times a day as needed PROAIR HFA 108 (90 B ASE) MCG/ACT INHALATION AEROSOL SOLUTION ALBUTEROL SULFATE Inactive PREDNISONE 20 MG ORAL TABLET two tabs by mouth today, then one tab by mouth days two and three and four PREDNISONE 20 MG ORAL TAB LET [id number] PREDNISONE Inactive TUSSIONEX PENNKINETIC ER 10-8 MG/5ML [...] bid 04/20 TOPAMAX 100 MG ORAL TABLET [id number] TOPIRAMATE Inactive CYMBALTA 30 MG ORAL CAPSULE DELAYED RELEASE PARTICLES 1 cap by mouth daily for depression CYMBALTA 30 MG ORAL CAPSULE DELAYED RELEASE PARTICLES 092473 DULOXETINE HCL Inactive TYLENOL WITH CODEINE #3 300-30 MG ORAL TABLET 1-2 po q6hr PRN Pa in TYLENOL WITH CODEINE #3 300-30 MG ORAL TABLET 021152 ACETAMINOPHEN-CODEINE Inactive TYLENOL WITH CODEINE #3 300-30 MG ORAL TABLET TYLENOL WITH CODEINE #3 300-30 MG ORAL TABLET 788162 ACETAMINOPHEN-CODEINE Inactive TRIAMCINOLONE ACETONIDE 0.1 % EXTERNAL CREAM apply bid spari ngly to rash TRIAMCINOLONE ACETONIDE 0.1 % EXTERNAL CREAM 101 4314 TRIAMCINOLONE ACETONIDE Inactive ZITHROMAX Z-REYNA 250 MG ORAL TABLET 2 today, then 1 daily for 4 d ays ZITHROMAX Z-REYNA 250 MG ORAL TABLET 248750 AZITHROMYCIN Inactive CEFDINIR 300 MG ORAL CAPSULE by mouth twice a day 2010 CEFDINIR 300 MG ORAL CAPSULE 259113 CEFDINIR Inactive CEFDINIR 300 MG ORAL CAPSULE by mouth twice a day 2010 CEFDINIR 300 MG ORAL CAPSULE 478727 CEFDINIR Inactive CEFDINIR 300 MG ORAL CAPSULE by mouth twice a day 2010 CEFDINIR 300 MG ORAL CAPSULE 810489 CEFDINIR Inactive CEFDINIR 300 MG ORAL CAPSULE by mouth twice a day 2011 CEFDINIR 300 MG ORAL CAPSULE 963695 CEFDINIR Inactive ZITHROMAX 250 MG ORAL TABLET 2 po today, then 1 po q days 2-5 20 03/07/07 ZITHROMAX 250 MG ORAL TABLET 260274 AZITHROMYCIN [facility] [facility] CEFDINIR 300 MG ORAL CAPSULE by mouth twice a day 2011 CEFDINIR 300 MG ORAL CAPSULE 429031 CEFDINIR Inactive PREDNISONE 20 MG ORAL TABLET 2 tabs daily for 3 days, 1 tab daily for 3 days, 1/2 tab daily for 2 days PREDNISONE 20 MG ORAL T ABLET 544285 PREDNISONE Inactive AVELOX 400 MG ORAL TABLET [...] days 11/07 PREDNISONE 20 MG ORAL TABLET 291439 PREDNISONE Inactive LEVAQUIN 500 MG ORAL TABLET take one po QD LEVAQUIN 500 MG ORAL TABLET 465891 LEVOFLOXACIN Inactive AZITHROMYCIN 250 MG ORAL TABLET 2 po qd x 1 day, then 1 po q d x 4 days AZITHROMYCIN 250 MG ORAL TABLET 077227 AZITHROMY GIOVANNI Inactive MEDROL 4 MG ORAL TABLET THERAPY PACK 6 tabs on day 1, 5 tabs on day 2, 4 tabs on day 3, 3 tabs on day 4, 2 tabs on day 5, 1 tab on day 6 2013 MEDROL 4 MG ORAL TABLET THERAPY PACK 039303 METHYLPREDNISOLONE [facility] CHERATUSSIN AC 100-10 MG/5ML ORAL SYRUP 5ml po q6hr PRN Cough 20 13/04/14 CHERATUSSIN AC 100-10 MG/5ML ORAL SYRUP 692227 GUAIFENE SIN-CODEINE Inactive TRIAMCINOLONE ACETONIDE 0.1 % EXTERNAL CREAM apply three roger es daily prn rash TRIAMCINOLONE ACETONIDE 0.1 % EXTERNAL CREAM 101 4314 TRIAMCINOLONE ACETONIDE Inactive AZITHROMYCIN 250 MG ORAL TABLET 2 po qd x 1 day, then 1 po q d x 4 days AZITHROMYCIN 250 MG ORAL TABLET 826775 AZITHROMY GIOVANNI Inactive MEDROL 4 MG ORAL TABLET THERAPY PACK 6 pills x 1 day, then 5 pills x 1 day then 4 pills x 1 day, then 3 pills x 1 day, then 2 pills x 1 day, then 1 pill x 1 day, then stop MEDROL 4 MG ORAL TABLET THERAPY PACK 985280 METHYLPREDNISOLONE Inactive AMOXICILLIN 500 MG ORAL CAPSULE 1 tab by mouth 3 times daily x 10 days AMOXICILLIN 500 MG ORAL CAPSULE 523274 AMOXICILL IN Inactive AMOXICILLIN 500 MG ORAL CAPSULE 1 tab by mouth 3 times daily x 10 days AMOXICILLIN 500 MG ORAL CAPSULE 530841 AMOXICILL IN Inactive ZITHROMAX 250 MG ORAL TABLET 2 po today, then 1 po q days 2-5 20 12/08/14 ZITHROMAX 250 MG ORAL TABLET 092906 AZITHROMYCIN [facility] AUGMENTIN 875-125 MG ORAL TABLET 1 po BID x 10 days 20 13/01/20 AUGMENTIN 875-125 MG ORAL TABLET AMOXICILLIN-POT CLAVULANATE Inactive ZITHROMAX Z-REYNA 250 MG ORAL TABLET 2 today, then 1 daily for 4 d ays ZITHROMAX Z-REYNA 250 MG ORAL TABLET 634902 AZITHROMYCIN Inactive ZITHROMAX 250 MG ORAL TABLET 2 po today, then 1 po q days 2-5 20 14/03/21 ZITHROMAX 250 MG ORAL TABLET 921247 AZITHROMYCIN [facility] ZITHROMAX Z-REYNA 250 MG ORAL TABLET 2 today, then 1 daily for 4 d ays ZITHROMAX Z-REYNA 250 MG ORAL TABLET 721942 AZITHROMYCIN Inactive CEFDINIR 300 MG ORAL CAPSULE 1 po BID x 10 days 06/21 CEFDINIR 300 MG ORAL CAPSULE 20020704 CEFDINIR Inactive ZITHROMAX 250 MG ORAL TABLET 2 po today, then 1 po q days 2-5 20 13/08/10 ZITHROMAX 250 MG ORAL TABLET 885727 AZITHROMYCIN [facility] LEVAQUIN 500 MG ORAL TABLET 1 tablet by mouth daily 13/09/24 LEVAQUIN 500 MG ORAL TABLET 19971102 LEVOFLOXACIN Inactive SINGULAIR 10 MG ORAL TABLET 1 po qday for allergies 20 14/01/12 SINGULAIR 10 MG ORAL TABLET 20010504 MONTELUKAST SODIUM Inactive AMOXICILLIN 500 MG ORAL CAPSULE 2 po BID x 10 days 201 09/29/08 AMOXICILLIN 500 MG ORAL CAPSULE 063985 AMOXICILLIN Inactive PREDNISONE 20 MG ORAL TABLET 2 tabs daily for 3 days, 1 tab daily for 3 days, 1/2 tab daily for 2 days PREDNISONE 20 MG ORAL T ABLET 971098 PREDNISONE Inactive ZITHROMAX Z-REYNA 250 MG ORAL TABLET 2 today, then 1 daily for 4 d ays ZITHROMAX Z-REYNA 250 MG ORAL TABLET 238549 AZITHROMYCIN Inactive PREDNISONE 20 MG ORAL TABLET 2 tabs daily for 3 days, 1 tab daily for 3 days, 1/2 tab daily for 2 days PREDNISONE 20 MG ORAL T ABLET 807782 PREDNISONE Inactive ZITHROMAX 250 MG ORAL TABLET 2 po today, then 1 po q days 2-5 20 14/09/04 ZITHROMAX 250 MG ORAL TABLET 934891 AZITHROMYCIN [place] [facility] AMOXICILLIN 500 MG ORAL CAPSULE 1 cap by mouth three times a day AMOXICILLIN 500 MG ORAL CAPSULE 578578 AMOXICILLIN Inactive TERBINAFINE HCL 250 MG ORAL TABLET 1 qDay for nail fungus 7 TERBINAFINE HCL 250 MG ORAL TABLET 988045 TERBINAFINE HCL Inact nael AUGMENTIN 875-125 MG ORAL TABLET 1 po BID x 10 days 20 16/03/22 AUGMENTIN 875-125 MG ORAL TABLET AMOXICILLIN-POT CLAVULANATE Inactive PREDNISONE 20 MG ORAL TABLET 2 po qd x 5 days PREDNISONE 20 MG ORAL TABLET 113407 PREDNISONE Inactive AZITHROMYCIN 250 MG ORAL TABLET 2 po qd x 1 day, then 1 po q d x 4 days AZITHROMYCIN 250 MG ORAL TABLET 871451 AZITHROMY GIOVANNI Inactive PREDNISONE 50 MG ORAL TABLET Take 50 mg dialy for 6 day s 7 PREDNISONE 50 MG ORAL TABLET 525457 PREDNISONE Inactive AUGMENTIN 875-125 MG ORAL TABLET 1 po BID x 10 days 20 18/04/16 AUGMENTIN 875-125 MG ORAL TABLET AMOXICILLIN-POT CLAVULANATE Inactive DOXYCYCLINE HYCLATE 100 MG ORAL CAPSULE 1 cap by mouth twice latasha ly DOXYCYCLINE HYCLATE 100 MG ORAL CAPSULE 0238405 DOXYCYCL INE HYCLATE Inactive PREDNISONE 20 MG ORAL TABLET Take 2 tabs day 1 and 2 and 1 t ab days 3 and 4 PREDNISONE 20 MG ORAL TABLET 269536 PREDNISONE Inactive AMOXICILLIN 500 MG ORAL CAPSULE 1 cap by mouth twice daily 10/21 AMOXICILLIN 500 MG ORAL CAPSULE 588586 AMOXICILLIN Inactive TRIAMCINOLONE ACETONIDE 0.1 % EXTERNAL OINTMENT Apply to affected areas TID PRN Rash/Itching for up 2 weeks TRIAMCINOLON E ACETONIDE 0.1 % EXTERNAL OINTMENT 9693651 TRIAMCINOLONE ACETONIDE Inactive ACYCLOVIR 800 MG ORAL TABLET 1 po 5 times daily x 7 days ACYCLOVIR 800 MG ORAL TABLET 292849 ACYCLOVIR Inactive Vital Signs Date Name Value Unit [...] weight E&M 136.50 [lb_av] Weight Measure d blood pressure, diastolic, supine 71 mm[Hg] BP srinivasan blood pressure, systolic, supine E&M 107 mm[Hg] BP sys pulse rate E&M 104 /min Heart rate temperature E&M 97.2 [degF] Body temp erature weight E&M 140 [lb_av] Weight Measure d Diagnostic Results Date Name Value Unit Range Description Lab Report: Comp. Metabolic Panel, CBC, Lipid Panel - Chemistry sodium, serum 137 mmol/L [phone]/10/08 carbon dioxide, venous blood 29.9 mmol/L 21.0-32 [...] 0.50 mg/dL 0.00-1.00 cholesterol, serum 324 mg/dL 606-484 8020/10/08 triglyceride, serum, fasting 130 mg/dL 30-200 HDL [...] negative Encounters Code Encounter Date Provider Facility CPT-63354 Level 3 Est. Patient 14:41:20 TELEGRAPHIC TYPEWRITER MECHANIC David lion [facility] CPT-73372 [id number] Vst-Est Level IV 09:06:31 C ESAU Hu MD [facility] CPT-01119 Level 3 Est. Patient 14:16:41 CDT David lion [facility] CPT-90604 Level 3 Est. Patient 13:57:55 CDT David lion [facility] CPT-27920 Level 3 Est. Patient 16:08:07 CDT David lion [facility] CPT-47142 Level 3 Est. Patient 16:53:54 CDT May haas MD [facility] CPT-24215 [id number] Vst-Est Level IV 08:41:[address] Carlton Hu MD [facility] CPT-80665 Level 3 Est. Patient 09:46:49 TELEGRAPHIC TYPEWRITER MECHANIC David lion [facility] CPT-14285 [id number] Vst-Est Level III 11:12:16 CDT Yanet Bess DO [facility] CPT-86536 Level 3 Est. Patient 11:34:49 TELEGRAPHIC TYPEWRITER MECHANIC Perez Mora MD [facility] CPT-48406 Level 4 Est. Patient 09:51:32 TELEGRAPHIC TYPEWRITER MECHANIC Carlton rich MD [facility] CPT-19578 Level 3 Est. Patient 10:26:00 TELEGRAPHIC TYPEWRITER MECHANIC Elise stephenson [facility] CPT-55155 Level 3 Est. Patient 13:35:41 TELEGRAPHIC TYPEWRITER MECHANIC Carlton rich MD [facility] CPT-56864 Level 3 Est. Patient 10:03:52 TELEGRAPHIC TYPEWRITER MECHANIC Carlton rich MD [facility] CPT-11579 Level 3 Est. Patient 12:17:50 CDT Hugo Restrepo MD [facility] CPT-36908 Level 3 Est. Patient 13:42:38 CDT Elise Hitchcock ll [facility] CPT-39917 Level 3 Est. Patient 13:23:51 CDT Diya cobian [facility] CPT-53927 Level 3 Est. Patient 14:22:19 TELEGRAPHIC TYPEWRITER MECHANIC Diya cobian [facility] CPT-87184 Level 3 Est. Patient 10:11:46 CDT Carlton rich MD [facility] CPT-49875 Level 3 Est. Patient 17:29:43 CDT Elise Are ll M[employer]ESS [employer]UFFER [facility] CPT-95955 Level 3 Est. Patient 11:58:06 CDT Elise Are ll MATTRESS STUFFER [facility] CPT-61750 Level 4 Est. Patient 14:36:51 CDT Carlton rich MD [facility] CPT-75945 Level 3 Est. Patient 18:16:00 TELEGRAPHIC TYPEWRITER MECHANIC Blaine Freeman [facility] CPT-29969 Level 3 Est. Patient 09:45:49 TELEGRAPHIC TYPEWRITER MECHANIC Carlton rich MD [facility] CPT-28062 Level 3 Est. Patient 13:19:20 CDT Carlton rich MD [facility] [place]-34786 Level 3 Est. Patient 13:06:43 CDT Ridge tam DO [facility] CPT-31761 Level 3 Est. Patient 10:03:07 CDT Perez Mora MD [facility] CPT-02716 Level 3 Est. Patient 19:50:35 TELEGRAPHIC TYPEWRITER MECHANIC Carlton rich MD [facility] [place]-31202 Level 4 Est. Patient 18:05:01 TELEGRAPHIC TYPEWRITER MECHANIC Carlton rich MD [facility] CPT-32615 Level 3 Est. Patient 10:45:55 TELEGRAPHIC TYPEWRITER MECHANIC Hugo Restrepo MD [facility] CPT-27243 Level 3 Est. Patient 14:12:49 CDT Griffin lincoln [facility] CPT-41651 Level 3 Est. Patient 17:37:24 CDT Carlton rich MD [facility] [place]-20672 Level 3 Est. Patient 16:51:54 CDT Carlton rich MD [facility] [place]-61246 Level 3 Est. Patient 12:18:11 CDT Hugo Restrepo MD [facility] CPT-21006 Level 3 Est. Patient 11:30:25 CDT Marcy crisostomo MD PhD [facility] CPT-45305 Level 3 Est. Patient 12:00:47 TELEGRAPHIC TYPEWRITER MECHANIC Carlton rich MD [facility] CPT-23105 Level 3 Est. Patient 16:31:06 TELEGRAPHIC TYPEWRITER MECHANIC Carlton rich MD [facility] CPT-71529 Level 3 Est. Patient 16:23:24 TELEGRAPHIC TYPEWRITER MECHANIC Ridge tam [facility] CPT-16294 Level 3 Est. Patient 12:34:12 CDT Carlton rich MD [facility] CPT-95494 Level 2 Est. Patient 15:43:33 CDT Robi armstrong MD [facility] CPT-58862 Level 4 Est. Patient 14:04:44 CDT Carlton rich MD [facility] CPT-65321 Level 3 Est. Patient 05:47:59 CDT Ridge tam [facility] CPT-35424 Level 3 Est. Patient 13:12:53 TELEGRAPHIC TYPEWRITER MECHANIC Carlton rich MD [facility] CPT-69764 Level 3 Est. Patient 14:26:53 CDT Hugo Restrepo MD [facility] Procedures Code Procedure Name Date Entry Date Standard Desc ription [id number] (4274F 2P) Patient Reason Influenza immu nization not administered 14:13:39 TELEGRAPHIC TYPEWRITER MECHANIC CPT-97801 Venipuncture Draw Fee 15:53:34 CDT CPT-000 Give Appropriate Flu Vaccine 14:14:31 CDT 2 CPT-J1040 Depo Medrol 80 mg (Methyl Prednisolone A cetate) 10:42:44 CDT CPT-J1100 Decadron 8mg (Dexamethasone) 10:42:44 CDT 2 CPT-J0696 Rocephin 1gm Inj Solr 14:32:13 CDT CPT-J1020 Depo Medrol 60 mg (Methyl Prednisolone A cetate) 14:32:13 CDT CPT-J1100 Decadron 6mg (Dexamethasone) 14:32:13 CDT 2 CPT-39414 Hip bilat min 2V w AP pelvis 13:16:20 CDT 2 CPT-82285 Pelvis only 13:07:33 CDT CPT-41402 Spec Collection and Handling Fee 11:25:12 C DT CPT-47697 Fluzone Quadrivalent Intramuscular Suspe nsion 0.5 ML 14:31:55 CDT CPT-50045 Abx/Therapy Injection 13:28:47 TELEGRAPHIC TYPEWRITER MECHANIC CPT-J2930 Solu Medrol 125 mg (Methyl Prednisolone Sodium Succinate) 12:00:47 TELEGRAPHIC TYPEWRITER MECHANIC CPT-23180 Venipuncture Draw Fee 11:33:31 CDT CPT-18366 EKG Trac and Interp 11:21:09 CDT CPT-06935 Chest 2V Frontal and Lat 11:21:09 CDT 12/15 CPT-37322 Venipuncture Draw Fee 08:02:34 CDT CPT-42527 Chest 2V Frontal and Lat 05:47:59 CDT 06/05
--- OUTSIDE RECORDS SUMMARY | 2019-10-08 08:49 | XMS REPORT | Clinical Summary ---
Author Author Caitlin, Juliana Martinez Organization [facility] Address Unknown Phone [...] URI 465.9 Inactive Ridge Bess DO Ac tazlina upper respiratory infections of unspecified site Body Mass Index 35.0-35.9 Adult Refinement 2017 Ridge Bess DO Body Mass Index 35.0-35.9, adult BMI 34-34.9 Refinement Cherelle Torres RN Body Mass Index 35.0-35.9, adult BMI 35-35.9 Refinement David Marianneamisha RICEN Body Mass Index 35.0-35.9, adult BMI 34-34.9 Refinement May iVvar MD Body Mass Index 35.0-35.9, adult BMI 35-35.9 Refinement David Marianne COMPUTER SYSTEM TECHNICIAN Body Mass Index 35.0-35.9, adult BMI 33-33.9 Active David Marianne COMPUTER SYSTEM TECHNICIAN Body Mass Index 35.0-35.9, adult Upper respiratory infection, viral 465.9 Active 2 Perez Mora MD Acute upper respiratory infections of un specified site Obesity Class I (BMI 30-34.9) Refinement Jose Torres RN Obesity, unspecified Morbid obesity due to excess [facility] David Marianneamisha RICEN Obesity, unspecified Obesity [...] nonspecific skin eruption 782.1 Active David Marianne COMPUTER SYSTEM TECHNICIAN Rash and other nonspecific skin eruption Pharyngitis, acute / sore throat 462 Active 201 12/06/23 David Marianne COMPUTER SYSTEM TECHNICIAN Acute pharyngitis Shingles 053.9 Active David Marianne COMPUTER SYSTEM TECHNICIAN Herpes zoster without mention of complication Allergic [...] tsp PO q6h PRN co ugh GUAIFENESIN-CODEINE 46292601975 Active David Marianne COMPUTER SYSTEM TECHNICIAN Active AMOXICILLIN-POT CLAVULANATE 875-125 MG ORAL TABLET 1 pill by mouth twice daily AMOXICILLIN-POT CLAVULANATE 56071617319 Active Advid Marianne COMPUTER SYSTEM TECHNICIAN Active DULOXETINE HCL 60 MG ORAL CAPSULE DELAYED RELEASE PART ICLES TAKE 1 CAPSULE BY MOUTH ONCE DAILY FOR PAIN AND MOOD DULOXETINE HCL 002 [id number] Active Carlton Hu MD Active TRAMADOL HCL 50 MG TABS TAKE 1 TABLET BY MOUTH THREE TIMES DAILY WITH EXTRA STRENGTH TYLENOL TRAMADOL HCL 05452484741 Active Carlton Hu MD Active ALPRAZOLAM 0.5 MG TABS TAKE 1 TABLET BY MOUTH ONCE DAILY NEEDED ALPRAZOLAM 83616228842 Active Carlton Hu MD Active GABAPENTIN 100 MG ORAL CAPSULE TAKE 1 CAPSULE BY MOUTH TWICE DAILY FOR FIBROMYALGIA GABAPENTIN 27753931214 Active Carlton Hu MD Active ELMIRON 100MG CAP TAKE 2 CAPSULES BY MOUTH IN THE MORNING AND 1 CAPSULE AT BEDTIME PENTOSAN POLYSULFATE SODIUM 21815055478 Active May Vivar MD Active TOPIRAMATE 100 MG TABS TAKE 1 TABLET BY MOUTH TWICE DAILY 1 TOPIRAMATE 55020735127 Active Carlton Hu MD Active ATORVASTATIN CALCIUM 10 MG ORAL TABLET 1 pill by mouth night ly, for cholesterol ATORVASTATIN CALCIUM 10574900826 Active Columba Francois Active TRIAMCINOLONE ACETONIDE 0.1 % EXTERNAL CREAM apply bid spari ngly to rash TRIAMCINOLONE ACETONIDE 57458597094 No Longer Active Carlton Hu MD Active TYLENOL WITH CODEINE #3 300-30 MG ORAL TABLET ACETAMINOPHEN-CODEINE 14306661128 No Longer Active Carlton Hu MD Active TYLENOL WITH CODEINE #3 300-30 MG ORAL TABLET 1-2 po q6hr PRN Pa in ACETAMINOPHEN-CODEINE 48704535421 No Longer Active David Lopes AP RN Active ACYCLOVIR 800 MG ORAL TABLET 1 po 5 times daily x 7 days ACYCLOVIR 00226602098 No Longer Active David Marianne COMPUTER SYSTEM TECHNICIAN Active TOPAMAX 100 MG ORAL TABLET 1 by mouth twice daily TOPIRAMATE 73620503129 Active Carlton Hu MD Active TRIAMCINOLONE ACETONIDE 0.1 % EXTERNAL OINTMENT Apply to affected areas TID PRN Rash/Itching for up 2 weeks TRIAMCINOLONE ACETON KAYLA 81031095934 No Longer Active David Marianne COMPUTER SYSTEM TECHNICIAN Active AMOXICILLIN 500 MG ORAL CAPSULE 1 cap by mouth twice daily 10/21 AMOXICILLIN 10515326518 No Longer Active David Marianne COMPUTER SYSTEM TECHNICIAN Active CYMBALTA 30 MG ORAL CAPSULE DELAYED RELEASE PARTICLES 1 cap by mouth daily for depression DULOXETINE HCL 21169636324 No Longer Active Carlton Hu MD Active TUSSIONEX PENNKINETIC ER 10-8 MG/5ML ORAL SUSPENSION E XTENDED RELEASE 5ml po q12hr PRN Cough HYDROCOD POLST-CHLORPHEN POLST 69595608719 Active Carlton Hu MD Active PREDNISONE 20 MG ORAL TABLET Take 2 tabs day 1 and 2 and 1 t ab days 3 and 4 PREDNISONE 74390266036 No Longer Active David Marianne COMPUTER SYSTEM TECHNICIAN Active DOXYCYCLINE HYCLATE 100 MG ORAL CAPSULE 1 cap by mouth twice latasha ly DOXYCYCLINE HYCLATE 70193891289 No Longer Active David Marianne COMPUTER SYSTEM TECHNICIAN Active TOPAMAX 100 MG ORAL TABLET Take 1 tablet po bid TOPIRAMATE 31375608721 No Longer Active David Marianne COMPUTER SYSTEM TECHNICIAN Active TUSSIONEX PENNKINETIC ER 10-8 MG/5ML ORAL SUSPENSION E XTENDED RELEASE 5ml po q12hr PRN Cough HYDROCOD POLST-CHLORPHEN POLST 5 6359383914 No Longer Active David Marianne COMPUTER SYSTEM TECHNICIAN Active AUGMENTIN 875-125 MG ORAL TABLET 1 po BID x 10 days 18/04/16 AMOXICILLIN-POT CLAVULANATE 54514587706 No Longer Active David Marianne COMPUTER SYSTEM TECHNICIAN Active PREDNISONE 50 MG ORAL TABLET Take 50 mg dialy for 6 day s 7 PREDNISONE 56120329903 No Longer Active David Marianne COMPUTER SYSTEM TECHNICIAN Active TUSSIONEX PENNKINETIC ER 10-8 MG/5ML ORAL SUSPENSION E XTENDED RELEASE 5ml po q12hr PRN Cough HYDROCOD POLST-CHLORPHEN POLST 5 0595491488 No Longer Active Cherelle Torres RN Active PREDNISONE 20 MG ORAL TABLET two tabs by mouth today, then one tab by mouth days two and three and four PREDNISONE 71305812926 No Lo nger Active Cherelle Torres RN Active AZITHROMYCIN 250 MG ORAL TABLET 2 po qd x 1 day, then 1 po q d x 4 days AZITHROMYCIN 09122954106 No Longer Active Ridge Bess DO Active PREDNISONE 20 MG ORAL TABLET 2 po qd x 5 days P REDNISONE 14452814432 No Longer Active ePrez Mora MD Active PROAIR HFA 108 (90 BASE) MCG/ACT INHALATION AEROSOL SO LUTION 2 puffs four times a day as needed ALBUTEROL SULFATE 26491711096 No Long er Active Becky Cuellar JEFFA Active ASPIRIN 81 MG ORAL TABLET 1 po qd ASPIRIN 96681244959 Active Carlton Hu MD Active PREDNISONE 20 MG ORAL TABLET 1 tab twice daily for 3 d ay, then one daily for three days PREDNISONE 34140930935 No Longer Active Carlton Hu MD Active AUGMENTIN 875-125 MG ORAL TABLET 1 po BID x 10 days 16/03/22 AMOXICILLIN-POT CLAVULANATE 24006792704 No Longer Active Elise Garcia APRN Active TERBINAFINE HCL 250 MG ORAL TABLET 1 qDay for nail fungus 7 TERBINAFINE HCL 56446872864 No Longer Active Carlton Hu MD A ctive AMOXICILLIN 500 MG ORAL CAPSULE 1 cap by mouth three times a day AMOXICILLIN 55937730207 No Longer Active Carlton Hu MD Active ELMIRON 100 MG ORAL CAPSULE 2 tablets in the am and 1 tablet at hs PENTOSAN POLYSULFATE SODIUM 82563157458 No Longer Active Robert jade Hu MD Active MUCINEX D 60-600 MG ORAL TABLET EXTENDED RELEASE 12 HOUR 1 t ab po q am PSEUDOEPHEDRINE-GUAIFENESIN 54993620248 No Longer Act nael Carlton Hu MD Active MUCINEX DM MAXIMUM STRENGTH 60-1200 MG ORAL TABLET EXT ENDED RELEASE 12 HOUR 1 tab po q am DEXTROMETHORPHAN-GUAIFENESIN 43815374991 No Longer Active Carlton Hu MD Active TUSSIONEX PENNKINETIC ER 10-8 MG/5ML ORAL SUSPENSION E XTENDED RELEASE 5ml po q12hr PRN Cough HYDROCOD POLST-CHLORPHEN POLST 5 9632602798 No Longer Active Carlton Hu MD Active POTASSIUM CHLORIDE ER 20 MEQ ORAL TABLET EXTENDED RELE ASE Take 1 by mouth 4 times daily for 7 days POTASSIUM CHLORIDE 05738807744 No Longer Active Carlton Hu MD Active ZITHROMAX 250 MG ORAL TABLET 2 po today, then 1 po q days 2-5 20 14/09/04 AZITHROMYCIN 31884394322 No Longer Active Elise Garcia APRN Active TUSSIONEX PENNKINETIC ER 10-8 MG/5ML ORAL SUSPENSION E XTENDED RELEASE 5 ml twice a day as needed for cough HYDROCOD POLST-CHLORPH EN POLST 81104019894 No Longer Active Elise Garcia APRN Active MONTELUKAST SODIUM 10 MG ORAL TABLET 1 po daily for Allergy MONTELUKAST SODIUM 64917707431 Active Carlton Hu MD Ac tive TUSSIONEX PENNKINETIC ER 10-8 MG/5ML ORAL SUSPENSION E XTENDED RELEASE 5ml po q12hr PRN Cough HYDROCOD POLST-CHLORPHEN POLST 5 9862251769 No Longer Active Hugo Restrepo MD Active LYRICA 100 MG ORAL CAPSULE Take 1 tab po BID for fibromyalgia 20 11/08/21 PREGABALIN 63335595869 No Longer Active Elise Garcia APRN A ctive PREDNISONE 20 MG ORAL TABLET 2 tabs daily for 3 days, 1 tab daily for 3 days, 1/2 tab daily for 2 days PREDNISONE 51088332845 No Longer Active Diya De Guzman APRN Active TUSSIONEX PENNKINETIC ER 10-8 MG/5ML ORAL SUSPENSION E XTENDED RELEASE 5 mL PO q 12 hrs PRN cough HYDROCOD POLST-CHLORPHEN POLST 609867 08444 No Longer Active Jillina Gege KHAN Active FLUTICASONE PROPIONATE 50 MCG/ACT NASAL SUSPENSION 2 s prays each nostril daily until bottle is empty FLUTICASONE PROPIONATE 536625476 99 No Longer Active Jillina Gege RICEN Active ASMANEX 60 METERED DOSES 220 MCG/INH INHALATION AEROSO L POWDER BREATH ACTIVATED 1 puff bid with rinse after MOMETASONE FUROATE 0738354 4102 No Longer Active Diya De Guzman APRN Active ZITHROMAX Z-REYNA 250 MG ORAL TABLET 2 today, then 1 daily for 4 d ays AZITHROMYCIN 00312795555 No Longer Active Elise Garcia APRN Active TUSSIONEX PENNKINETIC ER 10-8 MG/5ML ORAL SUSPENSION E XTENDED RELEASE 5ml po q12hr PRN Cough HYDROCOD POLST-CHLORPHEN POLST 5 2088651700 No Longer Active Elise Garcia APRN Active PREDNISONE 20 MG ORAL TABLET 2 tabs daily for 3 days, 1 tab daily for 3 days, 1/2 tab daily for 2 days PREDNISONE 57991844281 No Longer Active Diya De Guzman APRN Active AMOXICILLIN 500 MG ORAL CAPSULE 2 po BID x 10 days 201 09/29/08 AMOXICILLIN 00709845347 No Longer Active Diya De Guzman APRN Act nael SINGULAIR 10 MG ORAL TABLET 1 po qday for allergies 20 14/01/12 MONTELUKAST SODIUM 69229747151 No Longer Active Carlton Hu MD Active LEVAQUIN 500 MG ORAL TABLET 1 tablet by mouth daily 20 13/09/24 LEVOFLOXACIN 74078394420 No Longer Active Carlton Hu MD Acti ve FLUTICASONE PROPIONATE 50 MCG/ACT NASAL SUSPENSION 2 s prays each nostril daily for 2 weeks, then 1 spray each nostril daily. FLUTICASONE PROPIONATE 30477495805 Active Carlton Hu MD Active ZITHROMAX 250 MG ORAL TABLET 2 po today, then 1 po q days 2-5 20 13/08/10 AZITHROMYCIN 71682385749 No Longer Active Elise Garcia APRN Active CEFDINIR 300 MG ORAL CAPSULE 1 po BID x 10 days CEFDINIR 06313582082 No Longer Active Carlton Hu MD Active ZOCOR 40 MG ORAL TABLET 1 tab by mouth daily SI MVASTATIN 26608143575 No Longer Active Carlton Hu MD Active CYCLOBENZAPRINE HCL 10 MG ORAL TABLET 1 tablet by mouth BID prn had pain CYCLOBENZAPRINE HCL 31482036016 No Longer Active Jayden Hu MD Active LEVOFLOXACIN 500 MG ORAL TABLET 1 tab PO daily x 10 days LEVOFLOXACIN 75713737275 No Longer Active Carlton Hu MD Acti ve PREDNISONE 20 MG ORAL TABLET 3 tab PO qd x 2d, 2 tab P O qd x 2d, 1 tab PO qd x 2d, 1/2 tab PO qd x 2d PREDNISONE 26956930939 No Lo nger Active Carlton Hu MD Active FLUTICASONE PROPIONATE 50 MCG/ACT NASAL SUSPENSION 1 t o 2 sprays each nostril daily FLUTICASONE PROPIONATE 31226355201 No Longer Ac tive Blaine HERNANDEZ Active CHERATUSSIN AC 100-10 MG/5ML ORAL SYRUP 1 tsp by mouth every 4 hours as needed for cough GUAIFENESIN-CODEINE 05215188708 No Longe r Active Blaine HERNANDEZ Active PROMETHAZINE-CODEINE 6.25-10 MG/5ML ORAL SYRUP 1 tsp b y mouth every 6 hours if needed for cough PROMETHAZINE-CODEINE 33445904934 No Longer Active Blaine HERNANDEZ Active CHERATUSSIN AC 100-10 MG/5ML ORAL SYRUP 1 tsp by mouth every 4 hours as needed for cough GUAIFENESIN-CODEINE 53913036525 No Longe r Active Blaine HERNANDEZ Active ZITHROMAX Z-REYNA 250 MG ORAL TABLET 2 today, then 1 daily for 4 d ays AZITHROMYCIN 49811432003 No Longer Active Columba Parrish Act nael ZITHROMAX 250 MG ORAL TABLET 2 po today, then 1 po q days 2-5 20 14/03/21 AZITHROMYCIN 56410350545 No Longer Active Carlton Hu MD Active ZITHROMAX Z-REYNA 250 MG ORAL TABLET 2 today, then 1 daily for 4 d ays AZITHROMYCIN 84652963527 No Longer Active Columba Parrish Act nael AUGMENTIN 875-125 MG ORAL TABLET 1 po BID x 10 days 20 13/01/20 AMOXICILLIN-POT CLAVULANATE 73645703250 No Longer Active Venuriley Daphnebrayan KHAN Active ZITHROMAX 250 MG ORAL TABLET 2 po today, then 1 po q days 2-5 20 12/08/14 AZITHROMYCIN 27068110876 No Longer Active Carlton Hu MD Active PREMARIN 0.625 MG ORAL TABLET TAKE 1 TAB BY MOUTH DAILY ESTROGENS CONJUGATED 39838810865 No Longer Active Ridge Bess DO A ctive CYMBALTA 30 MG ORAL CAPSULE DELAYED RELEASE PARTICLES 1 cap by mouth daily DULOXETINE HCL 43973942931 No Longer Active Ridge tam DO Active AMOXICILLIN 500 MG ORAL CAPSULE 1 tab by mouth 3 times daily x 10 days AMOXICILLIN 86421236221 No Longer Active Carlton bustamante MD Active AMOXICILLIN 500 MG ORAL CAPSULE 1 tab by mouth 3 times daily x 10 days AMOXICILLIN 95128861187 No Longer Active Carlton bustamante MD Active PROMETHAZINE-CODEINE 6.25-10 MG/5ML ORAL SYRUP 1 tsp b y mouth every 8 hours prn cough PROMETHAZINE-CODEINE 92379072838 No Longer Acti ve Carlton Hu MD Active MEDROL 4 MG ORAL TABLET THERAPY PACK 6 pills x 1 day, then 5 pills x 1 day then 4 pills x 1 day, then 3 pills x 1 day, then 2 pills x 1 day, then 1 pill x 1 day, then stop METHYLPREDNISOLONE 14302477826 No Long er Active Perez Mora MD Active AZITHROMYCIN 250 MG ORAL TABLET 2 po qd x 1 day, then 1 po q d x 4 days AZITHROMYCIN 24429942785 No Longer Active Perez Ambriz MD Active SYMBICORT 160-4.5 MCG/ACT INHALATION AEROSOL 2 puffs bid wit h rinse after BUDESONIDE-FORMOTEROL FUMARATE 40575505073 N o Longer Active Perez Mora MD Active LYRICA 75 MG ORAL CAPSULE TAKE 1 CAPSULE BY MOUTH TWICE DAILY PREGABALIN 44311933180 No Longer Active Carlton Hu MD Acti ve TOPAMAX 25 MG ORAL TABLET 1 qHS x 1 week, then 1 BID x 1 week, then 1 qAM and 2 qHS x 1 week, then 2 BID (migraine prevention) T OPIRAMATE 70800964628 No Longer Active Jerica FUENTES Active TOPAMAX 50 MG ORAL TABLET take 1 tab po BID for migraines. 07/02 TOPIRAMATE 08128805914 No Longer Active Jerica FUENTES Active TRIAMCINOLONE ACETONIDE 0.1 % EXTERNAL CREAM apply three roger es daily prn rash TRIAMCINOLONE ACETONIDE 66464743737 No Longer Active Carlton Hu MD Active PAXIL 40 MG ORAL TABLET take 1 tab po qday for depression 0 PAROXETINE HCL 80511233188 Active Carlton Hu MD Active CHERATUSSIN AC 100-10 MG/5ML ORAL SYRUP 5ml po q6hr PRN Cough 20 13/04/14 GUAIFENESIN-CODEINE 96239877245 No Longer Active Carlton Hu MD Active MEDROL 4 MG ORAL TABLET THERAPY PACK 6 tabs on day 1, 5 tabs on day 2, 4 tabs on day 3, 3 tabs on day 4, 2 tabs on day 5, 1 tab on day 6 2013 METHYLPREDNISOLONE 12381491549 No Longer Active Perez Mora MD Active AZITHROMYCIN 250 MG ORAL TABLET 2 po qd x 1 day, then 1 po q d x 4 days AZITHROMYCIN 76453749918 No Longer Active Perez mAbriz MD Active PROPRANOLOL HCL 60 MG ORAL TABLET 1 PO Q D PROPRANOLOL HCL 05338175927 No Longer Active Perez Mora MD Activ e CHERATUSSIN AC 100-10 MG/5ML ORAL SYRUP take one tsp po Q 6h ours prn cough GUAIFENESIN-CODEINE 74693369802 No Longer Active Zia Mora MD Active AUGMENTIN 875-125 MG ORAL TABLET 1 tab by mouth twice daily with food AMOXICILLIN-POT CLAVULANATE 08245841400 No Longer Act nael Perez Mora MD Active CHERATUSSIN AC 100-10 MG/5ML ORAL SYRUP 1 tsp by mouth every 4 hours as needed for cough GUAIFENESIN-CODEINE 15880317088 No Longe r Active Hugo Restrepo MD Active ACETAMINOPHEN-CODEINE #3 300-30 MG ORAL TABLET 1 PO Q 4-6 HRS NC N PAIN ACETAMINOPHEN-CODEINE 47067379991 No Longer Active Hugo Restrepo MD Active LEVAQUIN 500 MG ORAL TABLET take one po QD LEVO FLOXACIN 86031409950 No Longer Active Griffin HERNANDEZ Active PREDNISONE 20 MG ORAL TABLET Take 3 tabs daily for 3 d ays, 2 tabs daily for 3 days, 1 tab daily for 3 days, 1/2 tab daily for 3 days 11/07 PREDNISONE 12078513240 No Longer Active Carlton Hu MD Acti ve AVELOX 400 MG ORAL TABLET 1 tab by mouth daily MOXIFLOXACIN HCL 17947982722 No Longer Active Carlton Hu MD Active CHERATUSSIN AC 100-10 MG/5ML ORAL SYRUP 1 tsp by mouth every 4 hours as needed for cough GUAIFENESIN-CODEINE 59778737123 No Longe r Active Hugo Restrepo MD Active AVELOX 400 MG ORAL TABLET 1 tab by mouth daily MOXIFLOXACIN HCL 99692286371 No Longer Active Marcy De La Rosa MD PhD Active TERBINAFINE HCL 250 MG ORAL TABLET 1 qDay T ERBINAFINE HCL 83410652430 No Longer Active Marcy De La Rosa MD PhD Active CHERATUSSIN AC 100-10 MG/5ML ORAL SYRUP 1 tsp by mouth every 4 hours as needed for cough GUAIFENESIN-CODEINE 04027544765 No Longe r Active Marcy De La Rosa MD PhD Active AVELOX 400 MG ORAL TABLET 1 tab by mouth daily MOXIFLOXACIN HCL 52647116158 No Longer Active Marcy De La Rosa MD PhD Active HYDROCODONE-ACETAMINOPHEN 5-325 MG ORAL TABLET 1 po q 6hr PRN co ugh HYDROCODONE-ACETAMINOPHEN 36041522168 No Longer Active Marcy De La Rosa MD PhD Active PREDNISONE 20 MG ORAL TABLET 2 tabs daily for 3 days, 1 tab daily for 3 days, 1/2 tab daily for 2 days PREDNISONE 20873219925 No Longer Active Carlton Hu MD Active CEFDINIR 300 MG ORAL CAPSULE by mouth twice a day 2011 CEFDINIR 51759806717 No Longer Active Calrton Hu MD Acti ve HYDROCHLOROTHIAZIDE 25 MG ORAL TABLET 1 TAB PO DAILY HYDROCHLOROTHIAZIDE 06902764634 Active Carlton Hu MD A ctive ACETAMINOPHEN-CODEINE #3 300-30 MG ORAL TABLET 1 tablet po q 4-6 hrs prn pain ACETAMINOPHEN-CODEINE 07008240854 No Longer Active Ridge Bess DO Active ZITHROMAX 250 MG ORAL TABLET 2 po today, then 1 po q days 2-5 20 03/07/07 AZITHROMYCIN 06023702998 No Longer Active Carlton Hu MD Active CHERATUSSIN AC 100-10 MG/5ML ORAL SYRUP take 1 tsp po q4-6 h ours prn cough GUAIFENESIN-CODEINE 15731921232 No Longer Active Jayden Hu MD Active ACETAMINOPHEN-CODEINE #3 300-30 MG ORAL TABLET 1 PO Q 4-6 HR PRN PAIN ACETAMINOPHEN-CODEINE 35383111162 No Longer Active Arnol Hu MD Active LORTAB 7.5-500 MG/15ML ORAL ELIXIR 7.5 ml po q 4 hour prn cough HYDROCODONE-ACETAMINOPHEN 06552709041 No Longer Active Carlton Hu MD Active PREDNISONE 20 MG ORAL TABLET 1 po bid 3 days, then 1 po q day 3 days PREDNISONE 85004357030 No Longer Active Carlton Hu MD Active CEFDINIR 300 MG ORAL CAPSULE by mouth twice a day 2011 CEFDINIR 80626904736 No Longer Active Carlton Hu MD Acti ve CEFDINIR 300 MG ORAL CAPSULE by mouth twice a day 2010 CEFDINIR 15774328736 No Longer Active Carlton Hu MD Acti ve CEFDINIR 300 MG ORAL CAPSULE by mouth twice a day 2010 CEFDINIR 73583893899 No Longer Active Carlton Hu MD Acti ve TESSALON PERLES 100 MG ORAL CAPSULE 1 tablet by mouth 3 times daily as needed for cough BENZONATATE 49238782289 No Longer Active Carlton Hu MD Active CEFDINIR 300 MG ORAL CAPSULE by mouth twice a day 2010 CEFDINIR 66896651648 No Longer Active Carlton Hu MD Acti ve ZITHROMAX Z-REYNA 250 MG ORAL TABLET 2 today, then 1 daily for 4 d ays AZITHROMYCIN 73420541081 No Longer Active Hugo Restrepo MD Active TESSALON PERLES 100 MG ORAL CAPSULE 1 tablet by mouth 3 times daily as needed for cough TESSALON PERLES 100 MG ORAL CAPSULE 45111 7 BENZONATATE Inactive PREDNISONE 20 MG ORAL TABLET 1 po bid 3 days, then 1 po q day 3 days PREDNISONE 20 MG ORAL TABLET 441229 PREDNISONE [place] ctive LORTAB 7.5-500 MG/15ML ORAL ELIXIR 7.5 ml po q 4 hour prn cough LORTAB 7.5-500 MG/15ML ORAL ELIXIR HYDROCODONE-A CETAMINOPHEN Inactive ACETAMINOPHEN-CODEINE #3 300-30 MG ORAL TABLET 1 PO Q 4-6 HR PRN PAIN ACETAMINOPHEN-CODEINE #3 300-30 MG ORAL TABLET 9 01422 ACETAMINOPHEN-CODEINE Inactive CHERATUSSIN AC 100-10 MG/5ML ORAL SYRUP take 1 tsp po q4-6 h ours prn cough CHERATUSSIN AC 100-10 MG/5ML ORAL SYRUP 095784 GUAIFENESIN-CODEINE Inactive ACETAMINOPHEN-CODEINE #3 300-30 MG ORAL TABLET 1 tablet po q 4-6 hrs prn pain ACETAMINOPHEN-CODEINE #3 300-30 MG ORAL TABLET 405814 ACETAMINOPHEN-CODEINE Inactive HYDROCODONE-ACETAMINOPHEN 5-325 MG ORAL TABLET 1 po q 6hr PRN co ugh HYDROCODONE-ACETAMINOPHEN 5-325 MG ORAL TABLET 118906 HYDROCODONE-ACETAMINOPHEN Inactive AVELOX 400 MG ORAL TABLET 1 tab by mouth daily AVELOX 400 MG ORAL TABLET MOXIFLOXACIN HCL Inactive CHERATUSSIN AC 100-10 MG/5ML ORAL SYRUP 1 tsp by mouth every 4 hours as needed for cough CHERATUSSIN AC 100-10 MG/5ML ORAL SYRUP 9 74490 GUAIFENESIN-CODEINE Inactive TERBINAFINE HCL 250 MG ORAL TABLET 1 qDay 07/08 TERBINAFINE HCL 250 MG ORAL TABLET 015306 TERBINAFINE HCL Inactive CHERATUSSIN AC 100-10 MG/5ML ORAL SYRUP 1 tsp by mouth every 4 hours as needed for cough CHERATUSSIN AC 100-10 MG/5ML ORAL SYRUP 9 82222 GUAIFENESIN-CODEINE Inactive ACETAMINOPHEN-CODEINE #3 300-30 MG ORAL TABLET 1 PO Q 4-6 HRS NC N PAIN ACETAMINOPHEN-CODEINE #3 300-30 MG ORAL TABLET 952880 ACETAMINOPHEN-CODEINE Inactive CHERATUSSIN AC 100-10 MG/5ML ORAL SYRUP 1 tsp by mouth every 4 hours as needed for cough CHERATUSSIN AC 100-10 MG/5ML ORAL SYRUP 9 21881 GUAIFENESIN-CODEINE Inactive AUGMENTIN 875-125 MG ORAL TABLET 1 tab by mouth twice daily with food AUGMENTIN 875-125 MG ORAL TABLET AMOXICIL MADELINE-POT CLAVULANATE Inactive CHERATUSSIN AC 100-10 MG/5ML ORAL SYRUP take one tsp po Q 6h ours prn cough CHERATUSSIN AC 100-10 MG/5ML ORAL SYRUP 718353 GUAIFENESIN-CODEINE Inactive PROPRANOLOL HCL 60 MG ORAL TABLET 1 PO Q D PROPRANOLOL HCL 60 MG ORAL TABLET 229813 PROPRANOLOL HCL Inactive TOPAMAX 50 MG ORAL TABLET take 1 tab po BID for migraines. 07/02 TOPAMAX 50 MG ORAL TABLET 837067 TOPIRAMATE Inacti ve TOPAMAX 25 MG ORAL TABLET 1 qHS x 1 week, then 1 BID x 1 week, then 1 qAM and 2 qHS x 1 week, then 2 BID (migraine prevention) TOPAMAX 25 MG ORAL TABLET 410016 TOPIRAMATE Inactive LYRICA 75 MG ORAL CAPSULE TAKE 1 CAPSULE BY MOUTH TWICE DAILY LYRICA 75 MG ORAL CAPSULE 093156 PREGABALIN Inactive SYMBICORT 160-4.5 MCG/ACT INHALATION AEROSOL 2 puffs bid wit h rinse after SYMBICORT 160-4.5 MCG/ACT INHALATION AEROSOL BUDESONIDE- FORMOTEROL FUMARATE Inactive PROMETHAZINE-CODEINE 6.25-10 MG/5ML ORAL SYRUP 1 tsp b y mouth every 8 hours prn cough PROMETHAZINE-CODEINE 6.25-10 MG/ 5ML ORAL SYRUP 126114 PROMETHAZINE-CODEINE Inactive CYMBALTA 30 MG ORAL CAPSULE DELAYED RELEASE PARTICLES 1 cap by mouth daily CYMBALTA 30 MG ORAL CAPSULE DELAYED RELE ASE PARTICLES 998085 DULOXETINE HCL Inactive PREMARIN 0.625 MG ORAL TABLET TAKE 1 TAB BY MOUTH DAILY PREMARIN 0.625 MG ORAL TABLET ESTROGENS CONJUGATED Inactive CHERATUSSIN AC 100-10 MG/5ML ORAL SYRUP 1 tsp by mouth every 4 hours as needed for cough CHERATUSSIN AC 100-10 MG/5ML ORAL SYRUP 9 17010 GUAIFENESIN-CODEINE Inactive PROMETHAZINE-CODEINE 6.25-10 MG/5ML ORAL SYRUP 1 tsp b y mouth every 6 hours if needed for cough PROMETHAZINE-CODEINE 6.25-10 MG/5ML ORAL SYRUP 593497 PROMETHAZINE-CODEINE Inactive CHERATUSSIN AC 100-10 MG/5ML ORAL SYRUP 1 tsp by mouth every 4 hours as needed for cough CHERATUSSIN AC 100-10 MG/5ML ORAL SYRUP 9 31079 GUAIFENESIN-CODEINE Inactive FLUTICASONE PROPIONATE 50 MCG/ACT NASAL SUSPENSION 1 t o 2 sprays each nostril daily FLUTICASONE PROPIONATE 50 MCG/AC T NASAL SUSPENSION 0692807 FLUTICASONE PROPIONATE Inactive PREDNISONE 20 MG ORAL TABLET 3 tab PO qd x 2d, 2 tab P O qd x 2d, 1 tab PO qd x 2d, 1/2 tab PO qd x 2d PREDNISONE 20 MG ORAL TAB LET 530653 PREDNISONE Inactive LEVOFLOXACIN 500 MG ORAL TABLET 1 tab PO daily x 10 days LEVOFLOXACIN 500 MG ORAL TABLET 594865 LEVOFLOXACIN Inactive CYCLOBENZAPRINE HCL 10 MG ORAL TABLET 1 tablet by mouth BID prn had pain CYCLOBENZAPRINE HCL 10 MG ORAL TABLET 539542 CYCLOBENZAPRINE HCL Inactive ZOCOR 40 MG ORAL TABLET 1 tab by mouth daily 4 ZOCOR 40 MG ORAL TABLET 399370 SIMVASTATIN Inactive TUSSIONEX PENNKINETIC ER 10-8 MG/5ML [...] FLUTICASONE PROPIO EFE 50 MCG/ACT NASAL SUSPENSION 4904635 FLUTICASONE PROPIONATE Inactive TUSSIONEX PENNKINETIC ER 10-8 MG/5ML ORAL SUSPENSION E XTENDED RELEASE 5 mL PO q 12 hrs PRN cough TUSSIONEX PENNKINETI C ER 10-8 MG/5ML ORAL SUSPENSION EXTENDED RELEASE HYDROCOD POLST-CHLORPHEN POLST I nactive LYRICA 100 MG ORAL CAPSULE Take 1 tab po BID for fibromyalgia 11/08/21 LYRICA 100 MG ORAL CAPSULE 959997 PREGABALIN Inact nael TUSSIONEX PENNKINETIC ER 10-8 [...] three days PREDNISONE 20 MG ORAL TABLET [id number] PREDNIS ONE Inactive PROAIR HFA 108 (90 BASE) MCG/ACT INHALATION AEROSOL SO LUTION 2 puffs four times a day as needed PROAIR HFA 108 (90 B ASE) MCG/ACT INHALATION AEROSOL SOLUTION ALBUTEROL SULFATE Inactive PREDNISONE 20 MG ORAL TABLET two tabs by mouth today, then one tab by mouth days two and three and four PREDNISONE 20 MG ORAL TAB LET [id number] PREDNISONE Inactive TUSSIONEX PENNKINETIC ER 10-8 MG/5ML [...] bid 04/20 TOPAMAX 100 MG ORAL TABLET 615952 TOPIRAMATE Inactive CYMBALTA 30 MG ORAL CAPSULE DELAYED RELEASE PARTICLES 1 cap by mouth daily for depression CYMBALTA 30 MG ORAL CAPSULE DELAYED RELEASE PARTICLES 380534 DULOXETINE HCL Inactive TYLENOL WITH CODEINE #3 300-30 MG ORAL TABLET 1-2 po q6hr PRN Pa in TYLENOL WITH CODEINE #3 300-30 MG ORAL TABLET 550122 ACETAMINOPHEN-CODEINE Inactive TYLENOL WITH CODEINE #3 300-30 MG ORAL TABLET TYLENOL WITH CODEINE #3 300-30 MG ORAL TABLET 331910 ACETAMINOPHEN-CODEINE Inactive TRIAMCINOLONE ACETONIDE 0.1 % EXTERNAL CREAM apply bid spari ngly to rash TRIAMCINOLONE ACETONIDE 0.1 % EXTERNAL CREAM 101 4314 TRIAMCINOLONE ACETONIDE Inactive ZITHROMAX Z-REYNA 250 MG ORAL TABLET 2 today, then 1 daily for 4 d ays ZITHROMAX Z-REYNA 250 MG ORAL TABLET 710290 AZITHROMYCIN Inactive CEFDINIR 300 MG ORAL CAPSULE by mouth twice a day 2010 CEFDINIR 300 MG ORAL CAPSULE 900387 CEFDINIR Inactive CEFDINIR 300 MG ORAL CAPSULE by mouth twice a day 2010 CEFDINIR 300 MG ORAL CAPSULE 738582 CEFDINIR Inactive CEFDINIR 300 MG ORAL CAPSULE by mouth twice a day 2010 CEFDINIR 300 MG ORAL CAPSULE 485253 CEFDINIR Inactive CEFDINIR 300 MG ORAL CAPSULE by mouth twice a day 2011 CEFDINIR 300 MG ORAL CAPSULE 341374 CEFDINIR Inactive ZITHROMAX 250 MG ORAL TABLET 2 po today, then 1 po q days 2-5 20 03/07/07 ZITHROMAX 250 MG ORAL TABLET 926396 AZITHROMYCIN [place] [facility] CEFDINIR 300 MG ORAL CAPSULE by mouth twice a day 2011 CEFDINIR 300 MG ORAL CAPSULE 318455 CEFDINIR Inactive PREDNISONE 20 MG ORAL TABLET 2 tabs daily for 3 days, 1 tab daily for 3 days, 1/2 tab daily for 2 days PREDNISONE 20 MG ORAL T ABLET 790564 PREDNISONE Inactive AVELOX 400 MG ORAL TABLET [...] days 11/07 PREDNISONE 20 MG ORAL TABLET 233762 PREDNISONE Inactive LEVAQUIN 500 MG ORAL TABLET take one po QD LEVAQUIN 500 MG ORAL TABLET 709791 LEVOFLOXACIN Inactive AZITHROMYCIN 250 MG ORAL TABLET 2 po qd x 1 day, then 1 po q d x 4 days AZITHROMYCIN 250 MG ORAL TABLET 531298 AZITHROMY GIOVANNI Inactive MEDROL 4 MG ORAL TABLET THERAPY PACK 6 tabs on day 1, 5 tabs on day 2, 4 tabs on day 3, 3 tabs on day 4, 2 tabs on day 5, 1 tab on day 6 2013 MEDROL 4 MG ORAL TABLET THERAPY PACK 367202 METHYLPREDNISOLONE [place] [facility] CHERATUSSIN AC 100-10 MG/5ML ORAL SYRUP 5ml po q6hr PRN Cough 20 13/04/14 CHERATUSSIN AC 100-10 MG/5ML ORAL SYRUP 448103 GUAIFENE SIN-CODEINE Inactive TRIAMCINOLONE ACETONIDE 0.1 % EXTERNAL CREAM apply three roger es daily prn rash TRIAMCINOLONE ACETONIDE 0.1 % EXTERNAL CREAM 101 4314 TRIAMCINOLONE ACETONIDE Inactive AZITHROMYCIN 250 MG ORAL TABLET 2 po qd x 1 day, then 1 po q d x 4 days AZITHROMYCIN 250 MG ORAL TABLET 670310 AZITHROMY GIOVANNI Inactive MEDROL 4 MG ORAL TABLET THERAPY PACK 6 pills x 1 day, then 5 pills x 1 day then 4 pills x 1 day, then 3 pills x 1 day, then 2 pills x 1 day, then 1 pill x 1 day, then stop MEDROL 4 MG ORAL TABLET THERAPY PACK 468480 METHYLPREDNISOLONE Inactive AMOXICILLIN 500 MG ORAL CAPSULE 1 tab by mouth 3 times daily x 10 days AMOXICILLIN 500 MG ORAL CAPSULE 669806 AMOXICILL IN Inactive AMOXICILLIN 500 MG ORAL CAPSULE 1 tab by mouth 3 times daily x 10 days AMOXICILLIN 500 MG ORAL CAPSULE 640887 AMOXICILL IN Inactive ZITHROMAX 250 MG ORAL TABLET 2 po today, then 1 po q days 2-5 20 12/08/14 ZITHROMAX 250 MG ORAL TABLET 084227 AZITHROMYCIN [place] [facility] AUGMENTIN 875-125 MG ORAL TABLET 1 po BID x 10 days 20 13/01/20 AUGMENTIN 875-125 MG ORAL TABLET AMOXICILLIN-POT CLAVULANATE Inactive ZITHROMAX Z-REYNA 250 MG ORAL TABLET 2 today, then 1 daily for 4 d ays ZITHROMAX Z-REYNA 250 MG ORAL TABLET 464915 AZITHROMYCIN Inactive ZITHROMAX 250 MG ORAL TABLET 2 po today, then 1 po q days 2-5 20 14/03/21 ZITHROMAX 250 MG ORAL TABLET 171161 AZITHROMYCIN [place] [facility] ZITHROMAX Z-REYNA 250 MG ORAL TABLET 2 today, then 1 daily for 4 d ays ZITHROMAX Z-REYNA 250 MG ORAL TABLET 573984 AZITHROMYCIN Inactive CEFDINIR 300 MG ORAL CAPSULE 1 po BID x 10 days 06/21 CEFDINIR 300 MG ORAL CAPSULE 20020704 CEFDINIR Inactive ZITHROMAX 250 MG ORAL TABLET 2 po today, then 1 po q days 2-5 20 13/08/10 ZITHROMAX 250 MG ORAL TABLET 587914 AZITHROMYCIN [place] [facility] LEVAQUIN 500 MG ORAL TABLET 1 tablet by mouth daily 13/09/24 LEVAQUIN 500 MG ORAL TABLET 19971102 LEVOFLOXACIN Inactive SINGULAIR 10 MG ORAL TABLET 1 po qday for allergies 20 14/01/12 SINGULAIR 10 MG ORAL TABLET 20010504 MONTELUKAST SODIUM Inactive AMOXICILLIN 500 MG ORAL CAPSULE 2 po BID x 10 days 201 09/29/08 AMOXICILLIN 500 MG ORAL CAPSULE 201294 AMOXICILLIN Inactive PREDNISONE 20 MG ORAL TABLET 2 tabs daily for 3 days, 1 tab daily for 3 days, 1/2 tab daily for 2 days PREDNISONE 20 MG ORAL T ABLET 626439 PREDNISONE Inactive ZITHROMAX Z-REYNA 250 MG ORAL TABLET 2 today, then 1 daily for 4 d ays ZITHROMAX Z-REYNA 250 MG ORAL TABLET 808735 AZITHROMYCIN Inactive PREDNISONE 20 MG ORAL TABLET 2 tabs daily for 3 days, 1 tab daily for 3 days, 1/2 tab daily for 2 days PREDNISONE 20 MG ORAL T ABLET 085874 PREDNISONE Inactive ZITHROMAX 250 MG ORAL TABLET 2 po today, then 1 po q days 2-5 20 14/09/04 ZITHROMAX 250 MG ORAL TABLET 801323 AZITHROMYCIN [place] [facility] AMOXICILLIN 500 MG ORAL CAPSULE 1 cap by mouth three times a day AMOXICILLIN 500 MG ORAL CAPSULE 571552 AMOXICILLIN Inactive TERBINAFINE HCL 250 MG ORAL TABLET 1 qDay for nail fungus 7 TERBINAFINE HCL 250 MG ORAL TABLET 359820 TERBINAFINE HCL Inact nael AUGMENTIN 875-125 MG ORAL TABLET 1 po BID x 10 days 20 16/03/22 AUGMENTIN 875-125 MG ORAL TABLET AMOXICILLIN-POT CLAVULANATE Inactive PREDNISONE 20 MG ORAL TABLET 2 po qd x 5 days PREDNISONE 20 MG ORAL TABLET 201517 PREDNISONE Inactive AZITHROMYCIN 250 MG ORAL TABLET 2 po qd x 1 day, then 1 po q d x 4 days AZITHROMYCIN 250 MG ORAL TABLET 498770 AZITHROMY GIOVANNI Inactive PREDNISONE 50 MG ORAL TABLET Take 50 mg dialy for 6 day s 7 PREDNISONE 50 MG ORAL TABLET 614073 PREDNISONE Inactive AUGMENTIN 875-125 MG ORAL TABLET 1 po BID x 10 days 20 18/04/16 AUGMENTIN 875-125 MG ORAL TABLET AMOXICILLIN-POT CLAVULANATE Inactive DOXYCYCLINE HYCLATE 100 MG ORAL CAPSULE 1 cap by mouth twice latasha ly DOXYCYCLINE HYCLATE 100 MG ORAL CAPSULE 4516938 DOXYCYCL INE HYCLATE Inactive PREDNISONE 20 MG ORAL TABLET Take 2 tabs day 1 and 2 and 1 t ab days 3 and 4 PREDNISONE 20 MG ORAL TABLET 802780 PREDNISONE Inactive AMOXICILLIN 500 MG ORAL CAPSULE 1 cap by mouth twice daily 10/21 AMOXICILLIN 500 MG ORAL CAPSULE 607205 AMOXICILLIN Inactive TRIAMCINOLONE ACETONIDE 0.1 % EXTERNAL OINTMENT Apply to affected areas TID PRN Rash/Itching for up 2 weeks TRIAMCINOLON E ACETONIDE 0.1 % EXTERNAL OINTMENT 3137394 TRIAMCINOLONE ACETONIDE Inactive ACYCLOVIR 800 MG ORAL TABLET 1 po 5 times daily x 7 days ACYCLOVIR 800 MG ORAL TABLET 845759 ACYCLOVIR Inactive Vital Signs Date Name Value [...] Panel - Chemistry sodium, serum 137 mmol/L 358-869 4039/10/08 carbon dioxide, venous blood 29.9 mmol/L 21.0-32 [...] 0.50 mg/dL 0.00-1.00 cholesterol, serum 324 mg/dL 930-039 3527/10/08 triglyceride, serum, fasting 130 mg/dL 30-200 HDL [...] 50-136 Office Visit: check-up for elmiron - Fernanad moises RBC, urine, dipstick negative protein, total [...] negative Encounters Code Encounter Date Provider Facility CPT-02057 Level 3 Est. Patient 14:41:20 GENERAL OPERATIONS AGENT David lion [facility] CPT-61852 [id number] Vst-Est Level IV 09:06:31 C ESAU Hu MD [facility] CPT-31613 Level 3 Est. Patient 14:16:41 CDT David lion [facility] CPT-81054 Level 3 Est. Patient 13:57:55 CDT David lion [facility] CPT-67901 Level 3 Est. Patient 16:08:07 CDT David lion [facility] CPT-26590 Level 3 Est. Patient 16:53:54 CDT May haas MD [facility] CPT-94701 [id number] Vst-Est Level IV 08:41:[address] Carlton Hu MD [facility] CPT-25444 Level 3 Est. Patient 09:46:49 GENERAL OPERATIONS AGENT David lion [facility] CPT-61000 [id number] Vst-Est Level III 11:12:16 CDT Yanet Bess DO [facility] CPT-59143 Level 3 Est. Patient 11:34:49 GENERAL OPERATIONS AGENT Perez Mora MD [facility] CPT-65111 Level 4 Est. Patient 09:51:32 GENERAL OPERATIONS AGENT Carlton rich MD [facility] CPT-30129 Level 3 Est. Patient 10:26:00 GENERAL OPERATIONS AGENT Elise stephenson [facility] CPT-98758 Level 3 Est. Patient 13:35:41 GENERAL OPERATIONS AGENT Carlton rich MD [facility] CPT-09267 Level 3 Est. Patient 10:03:52 GENERAL OPERATIONS AGENT Carlton rich MD [facility] CPT-87352 Level 3 Est. Patient 12:17:50 CDT uHgo Restrepo MD [facility] CPT-21314 Level 3 Est. Patient 13:42:38 CDT Elise Hitchcock ll [facility] CPT-94254 Level 3 Est. Patient 13:23:51 CDT Diya cobian [facility] CPT-67728 Level 3 Est. Patient 14:22:19 GENERAL OPERATIONS AGENT Diya cobian [facility] CPT-69023 Level 3 Est. Patient 10:11:46 CDT Carlton rich MD [facility] CPT-68641 Level 3 Est. Patient 17:29:43 CDT Elise Are ll COMPUTER SYSTEM TECHNICIAN [facility] CPT-27551 Level 3 Est. Patient 11:58:06 CDT Elise Are ll COMPUTER SYSTEM TECHNICIAN [facility] CPT-07180 Level 4 Est. Patient 14:36:51 CDT Carlton rich MD [facility] CPT-49107 Level 3 Est. Patient 18:16:00 GENERAL OPERATIONS AGENT Blaine Freeman [facility] CPT-42429 Level 3 Est. Patient 09:45:49 GENERAL OPERATIONS AGENT Carlton rich MD [facility] CPT-58551 Level 3 Est. Patient 13:19:20 CDT Carlton rich MD [facility]-02683 Level 3 Est. Patient 13:06:43 CDT Ridge tam DO [facility] CPT-04853 Level 3 Est. Patient 10:03:07 CDT Perez Mora MD [facility] CPT-15096 Level 3 Est. Patient 19:50:35 GENERAL OPERATIONS AGENT Carlton rich MD [facility]-55167 Level 4 Est. Patient 18:05:01 GENERAL OPERATIONS AGENT Carlton rich MD [facility] CPT-85250 Level 3 Est. Patient 10:45:55 GENERAL OPERATIONS AGENT Hugo Restrepo MD [facility] CPT-34517 Level 3 Est. Patient 14:12:49 CDT Griffin lincoln [facility] CPT-05150 Level 3 Est. Patient 17:37:24 CDT Carlton rich MD [facility]-70686 Level 3 Est. Patient 16:51:54 CDT Carlton rich MD [facility]-23050 Level 3 Est. Patient 12:18:11 CDT Hugo Restrepo MD [facility] CPT-09762 Level 3 Est. Patient 11:30:25 CDT Marcy crisostomo MD PhD [facility] CPT-50835 Level 3 Est. Patient 12:00:47 GENERAL OPERATIONS AGENT Carlton rich MD [facility] CPT-24803 Level 3 Est. Patient 16:31:06 GENERAL OPERATIONS AGENT Carlton rich MD [facility] CPT-24655 Level 3 Est. Patient 16:23:24 GENERAL OPERATIONS AGENT Ridge tam [facility] CPT-22694 Level 3 Est. Patient 12:34:12 CDT Carlton rich MD [facility] CPT-35048 Level 2 Est. Patient 15:43:33 CDT Robi armstrong MD [facility] CPT-79493 Level 4 Est. Patient 14:04:44 CDT Carlton rich MD [facility] CPT-86805 Level 3 Est. Patient 05:47:59 CDT Ridge tam [facility] CPT-43171 Level 3 Est. Patient 13:12:53 GENERAL OPERATIONS AGENT Carlton rich MD [facility] CPT-45204 Level 3 Est. Patient 14:26:53 CDT Hugo Restrepo MD [facility] Procedures Code Procedure Name Date Entry Date Standard Desc ription CPT-UR0127V (4274F 2P) Patient Reason Influenza immu nization not administered 14:13:39 GENERAL OPERATIONS AGENT CPT-98427 Venipuncture Draw Fee 15:53:34 CDT CPT-000 Give Appropriate Flu Vaccine 14:14:31 CDT 2 CPT-J1040 Depo Medrol 80 mg (Methyl Prednisolone A cetate) 10:42:44 CDT CPT-J1100 Decadron 8mg (Dexamethasone) 10:42:44 CDT 2 CPT-J0696 Rocephin 1gm Inj Solr 14:32:13 CDT CPT-J1020 Depo Medrol 60 mg (Methyl Prednisolone A cetate) 14:32:13 CDT CPT-J1100 Decadron 6mg (Dexamethasone) 14:32:13 CDT 2 CPT-71747 Hip bilat min 2V w AP pelvis 13:16:20 CDT 2 CPT-19748 Pelvis only 13:07:33 CDT CPT-25261 Spec Collection and Handling Fee 11:25:12 C DT CPT-65191 Fluzone Quadrivalent Intramuscular Suspe nsion 0.5 ML 14:31:55 CDT CPT-53712 Abx/Therapy Injection 13:28:47 GENERAL OPERATIONS AGENT CPT-J2930 Solu Medrol 125 mg (Methyl Prednisolone Sodium Succinate) 12:00:47 GENERAL OPERATIONS AGENT CPT-88140 Venipuncture Draw Fee 11:33:31 CDT CPT-32417 EKG Trac and Interp 11:21:09 CDT CPT-23058 Chest 2V Frontal and Lat 11:21:09 CDT 12/15 CPT-09408 Venipuncture Draw Fee 08:02:34 CDT CPT-83801 Chest 2V Frontal and Lat 05:47:59 CDT 06/05
--- OUTSIDE RECORDS SUMMARY | 2019-10-08 08:49 | XMS REPORT | Clinical Summary ---
Author Author Caitlin, Juliana Martinez Organization [employer] [facility] Address Unknown Phone Unavailable Allergies, [...] URI 465.9 Inactive Ridge Bess DO Ac [place] upper respiratory infections of unspecified site Body Mass Index 35.0-35.9 Adult Refinement 2017 Ridge Bess DO Body Mass Index 35.0-35.9, adult BMI 34-34.9 Refinement Cherelle Torres RN Body Mass Index 35.0-35.9, adult BMI 35-35.9 Refinement David Marianneamisha RICEN Body Mass Index 35.0-35.9, adult BMI 34-34.9 Refinement May Vivar MD Body Mass Index 35.0-35.9, adult BMI 35-35.9 Refinement David Marianne CARE PARTNER Body Mass Index 35.0-35.9, adult BMI 33-33.9 Active David Marianne CARE PARTNER Body Mass Index 35.0-35.9, adult Upper respiratory infection, viral 465.9 Active 2 Perez Mora MD Acute upper respiratory infections of un specified site Obesity Class I (BMI 30-34.9) Refinement Jose Torres RN Obesity, unspecified Morbid obesity due to excess [facility] David Marianneamisha RICEN Obesity, unspecified [...] nonspecific skin eruption 782.1 Active David Marianne [facility]ARE PARTNER Rash and other nonspecific skin eruption Pharyngitis, acute / sore throat 462 Active 201 12/06/23 David Marianne CARE PARTNER Acute pharyngitis Shingles 053.9 Active David Marianne CARE PARTNER Herpes zoster without mention of complication Allergic [...] tsp PO q6h PRN co ugh GUAIFENESIN-CODEINE 55080532769 Active David Marianne CARE PARTNER Active AMOXICILLIN-POT CLAVULANATE 875-125 MG ORAL TABLET 1 pill by mouth twice daily AMOXICILLIN-POT CLAVULANATE 46377577569 Active David Marianne CARE PARTNER Active DULOXETINE HCL 60 MG ORAL CAPSULE DELAYED RELEASE PART ICLES TAKE 1 CAPSULE BY MOUTH ONCE DAILY FOR PAIN AND MOOD DULOXETINE HCL 002 60569104 Active Carlton Hu MD Active TRAMADOL HCL 50 MG TABS TAKE 1 TABLET BY MOUTH THREE TIMES DAILY WITH EXTRA STRENGTH TYLENOL TRAMADOL HCL 57478056677 Active Carlton Hu MD Active ALPRAZOLAM 0.5 MG TABS TAKE 1 TABLET BY MOUTH ONCE DAILY NEEDED ALPRAZOLAM 62415407430 Active Carlton Hu MD Active GABAPENTIN 100 MG ORAL CAPSULE TAKE 1 CAPSULE BY MOUTH TWICE DAILY FOR FIBROMYALGIA GABAPENTIN 37739410355 Active Carlton Hu MD Active ELMIRON 100MG CAP TAKE 2 CAPSULES BY MOUTH IN THE MORNING AND 1 CAPSULE AT BEDTIME PENTOSAN POLYSULFATE SODIUM 99601099990 Active May Vivar MD Active TOPIRAMATE 100 MG TABS TAKE 1 TABLET BY MOUTH TWICE DAILY 1 TOPIRAMATE 02287433004 Active Carlton Hu MD Active ATORVASTATIN CALCIUM 10 MG ORAL TABLET 1 pill by mouth night ly, for cholesterol ATORVASTATIN CALCIUM 03507811982 Active Columba Francois Active TRIAMCINOLONE ACETONIDE 0.1 % EXTERNAL CREAM apply bid spari ngly to rash TRIAMCINOLONE ACETONIDE 90875172074 No Longer Active Carlton Hu MD Active TYLENOL WITH CODEINE #3 300-30 MG ORAL TABLET ACETAMINOPHEN-CODEINE 77151112932 No Longer Active Carlton Hu MD Active TYLENOL WITH CODEINE #3 300-30 MG ORAL TABLET 1-2 po q6hr PRN Pa in ACETAMINOPHEN-CODEINE 13150743544 No Longer Active David Lopes AP RN Active ACYCLOVIR 800 MG ORAL TABLET 1 po 5 times daily x 7 days ACYCLOVIR 05068941101 No Longer Active David Marianne CARE PARTNER Active TOPAMAX 100 MG ORAL TABLET 1 by mouth twice daily TOPIRAMATE 25850345416 Active Carlton Hu MD Active TRIAMCINOLONE ACETONIDE 0.1 % EXTERNAL OINTMENT Apply to affected areas TID PRN Rash/Itching for up 2 weeks TRIAMCINOLONE ACETON KAYLA 65777981688 No Longer Active David Marianne CARE PARTNER Active AMOXICILLIN 500 MG ORAL CAPSULE 1 cap by mouth twice daily 10/21 AMOXICILLIN 61475619463 No Longer Active David Marianne CARE PARTNER Active CYMBALTA 30 MG ORAL CAPSULE DELAYED RELEASE PARTICLES 1 cap by mouth daily for depression DULOXETINE HCL 09753100780 No Longer Active Carlton Hu MD Active TUSSIONEX PENNKINETIC ER 10-8 MG/5ML ORAL SUSPENSION E XTENDED RELEASE 5ml po q12hr PRN Cough HYDROCOD POLST-CHLORPHEN POLST 24239228155 Active Carlton Hu MD Active PREDNISONE 20 MG ORAL TABLET Take 2 tabs day 1 and 2 and 1 t ab days 3 and 4 PREDNISONE 40033050097 No Longer Active David Marianne CARE PARTNER Active DOXYCYCLINE HYCLATE 100 MG ORAL CAPSULE 1 cap by mouth twice latasha ly DOXYCYCLINE HYCLATE 97069504800 No Longer Active David Marianne CARE PARTNER Active TOPAMAX 100 MG ORAL TABLET Take 1 tablet po bid TOPIRAMATE 48602659796 No Longer Active David Marianne CARE PARTNER Active TUSSIONEX PENNKINETIC ER 10-8 MG/5ML ORAL SUSPENSION E XTENDED RELEASE 5ml po q12hr PRN Cough HYDROCOD POLST-CHLORPHEN POLST 5 8851274000 No Longer Active David Marianne CARE PARTNER Active AUGMENTIN 875-125 MG ORAL TABLET 1 po BID x 10 days 18/04/16 AMOXICILLIN-POT CLAVULANATE 57490736185 No Longer Active David Marianne CARE PARTNER Active PREDNISONE 50 MG ORAL TABLET Take 50 mg dialy for 6 day s 7 PREDNISONE 28309262270 No Longer Active David Marianne CARE PARTNER Active TUSSIONEX PENNKINETIC ER 10-8 MG/5ML ORAL SUSPENSION E XTENDED RELEASE 5ml po q12hr PRN Cough HYDROCOD POLST-CHLORPHEN POLST 5 2434072339 No Longer Active Cherelle Torres RN Active PREDNISONE 20 MG ORAL TABLET two tabs by mouth today, then one tab by mouth days two and three and four PREDNISONE 52233982077 No Lo nger Active Cherelle Torres RN Active AZITHROMYCIN 250 MG ORAL TABLET 2 po qd x 1 day, then 1 po q d x 4 days AZITHROMYCIN 28460520378 No Longer Active Ridge Bess DO Active PREDNISONE 20 MG ORAL TABLET 2 po qd x 5 days P REDNISONE 07240028856 No Longer Active Perez Mora MD Active PROAIR HFA 108 (90 BASE) MCG/ACT INHALATION AEROSOL SO LUTION 2 puffs four times a day as needed ALBUTEROL SULFATE 83505248419 No Long er Active Becky Cuellar JEFFA Active ASPIRIN 81 MG ORAL TABLET 1 po qd ASPIRIN 95947928442 Active Carlton Hu MD Active PREDNISONE 20 MG ORAL TABLET 1 tab twice daily for 3 d ay, then one daily for three days PREDNISONE 43204927319 No Longer Active Carlton Hu MD Active AUGMENTIN 875-125 MG ORAL TABLET 1 po BID x 10 days 16/03/22 AMOXICILLIN-POT CLAVULANATE 48317708470 No Longer Active Elise Garcia APRN Active TERBINAFINE HCL 250 MG ORAL TABLET 1 qDay for nail fungus 7 TERBINAFINE HCL 86999622155 No Longer Active Carlton Hu MD A ctive AMOXICILLIN 500 MG ORAL CAPSULE 1 cap by mouth three times a day AMOXICILLIN 33630277794 No Longer Active Carlton Hu MD Active ELMIRON 100 MG ORAL CAPSULE 2 tablets in the am and 1 tablet at hs PENTOSAN POLYSULFATE SODIUM 76655859547 No Longer Active Robert jade Hu MD Active MUCINEX D 60-600 MG ORAL TABLET EXTENDED RELEASE 12 HOUR 1 t ab po q am PSEUDOEPHEDRINE-GUAIFENESIN 96109432187 No Longer Act nael Carlton Hu MD Active MUCINEX DM MAXIMUM STRENGTH 60-1200 MG ORAL TABLET EXT ENDED RELEASE 12 HOUR 1 tab po q am DEXTROMETHORPHAN-GUAIFENESIN 78584358367 No Longer Active Carlton Hu MD Active TUSSIONEX PENNKINETIC ER 10-8 MG/5ML ORAL SUSPENSION E XTENDED RELEASE 5ml po q12hr PRN Cough HYDROCOD POLST-CHLORPHEN POLST 5 1770299598 No Longer Active Carlton Hu MD Active POTASSIUM CHLORIDE ER 20 MEQ ORAL TABLET EXTENDED RELE ASE Take 1 by mouth 4 times daily for 7 days POTASSIUM CHLORIDE 64270439043 No Longer Active Carlton Hu MD Active ZITHROMAX 250 MG ORAL TABLET 2 po today, then 1 po q days 2-5 20 14/09/04 AZITHROMYCIN 92773828530 No Longer Active Elise Garcia APRN Active TUSSIONEX PENNKINETIC ER 10-8 MG/5ML ORAL SUSPENSION E XTENDED RELEASE 5 ml twice a day as needed for cough HYDROCOD POLST-CHLORPH EN POLST 61613643264 No Longer Active Elise Garcia APRN Active MONTELUKAST SODIUM 10 MG ORAL TABLET 1 po daily for Allergy MONTELUKAST SODIUM 38100654348 Active Carlton Hu MD Ac tive TUSSIONEX PENNKINETIC ER 10-8 MG/5ML ORAL SUSPENSION E XTENDED RELEASE 5ml po q12hr PRN Cough HYDROCOD POLST-CHLORPHEN POLST 5 9463180118 No Longer Active Hugo Restrepo MD Active LYRICA 100 MG ORAL CAPSULE Take 1 tab po BID for fibromyalgia 20 11/08/21 PREGABALIN 41987058435 No Longer Active Elise Garcia APRN A ctive PREDNISONE 20 MG ORAL TABLET 2 tabs daily for 3 days, 1 tab daily for 3 days, 1/2 tab daily for 2 days PREDNISONE 56079597026 No Longer Active Diya De Guzman APRN Active TUSSIONEX PENNKINETIC ER 10-8 MG/5ML ORAL SUSPENSION E XTENDED RELEASE 5 mL PO q 12 hrs PRN cough HYDROCOD POLST-CHLORPHEN POLST 873373 68775 No Longer Active Jillina Gege KHAN Active FLUTICASONE PROPIONATE 50 MCG/ACT NASAL SUSPENSION 2 s prays each nostril daily until bottle is empty FLUTICASONE PROPIONATE 474235639 99 No Longer Active Jillina Gege RICEN Active ASMANEX 60 METERED DOSES 220 MCG/INH INHALATION AEROSO L POWDER BREATH ACTIVATED 1 puff bid with rinse after MOMETASONE FUROATE 1247441 4102 No Longer Active Diya De Guzman APRN Active ZITHROMAX Z-REYNA 250 MG ORAL TABLET 2 today, then 1 daily for 4 d ays AZITHROMYCIN 56290991692 No Longer Active Elise Garcia APRN Active TUSSIONEX PENNKINETIC ER 10-8 MG/5ML ORAL SUSPENSION E XTENDED RELEASE 5ml po q12hr PRN Cough HYDROCOD POLST-CHLORPHEN POLST 5 9976502369 No Longer Active Elise Garcia APRN Active PREDNISONE 20 MG ORAL TABLET 2 tabs daily for 3 days, 1 tab daily for 3 days, 1/2 tab daily for 2 days PREDNISONE 82258118155 No Longer Active Diya De Guzman APRN Active AMOXICILLIN 500 MG ORAL CAPSULE 2 po BID x 10 days 201 09/29/08 AMOXICILLIN 40215698467 No Longer Active Diya De Guzman APRN Act nael SINGULAIR 10 MG ORAL TABLET 1 po qday for allergies 20 14/01/12 MONTELUKAST SODIUM 93218620941 No Longer Active Carlton Hu MD Active LEVAQUIN 500 MG ORAL TABLET 1 tablet by mouth daily 20 13/09/24 LEVOFLOXACIN 20998439229 No Longer Active Carlton Hu MD Acti ve FLUTICASONE PROPIONATE 50 MCG/ACT NASAL SUSPENSION 2 s prays each nostril daily for 2 weeks, then 1 spray each nostril daily. FLUTICASONE PROPIONATE 34931941034 Active Carlton Hu MD Active ZITHROMAX 250 MG ORAL TABLET 2 po today, then 1 po q days 2-5 20 13/08/10 AZITHROMYCIN 57434602602 No Longer Active Elise Garcia APRN Active CEFDINIR 300 MG ORAL CAPSULE 1 po BID x 10 days CEFDINIR 30761879327 No Longer Active Carlton Hu MD Active ZOCOR 40 MG ORAL TABLET 1 tab by mouth daily SI MVASTATIN 42801127142 No Longer Active Carlton Hu MD Active CYCLOBENZAPRINE HCL 10 MG ORAL TABLET 1 tablet by mouth BID prn had pain CYCLOBENZAPRINE HCL 65211840376 No Longer Active Jayden Hu MD Active LEVOFLOXACIN 500 MG ORAL TABLET 1 tab PO daily x 10 days LEVOFLOXACIN 86820517942 No Longer Active Carlton Hu MD Acti ve PREDNISONE 20 MG ORAL TABLET 3 tab PO qd x 2d, 2 tab P O qd x 2d, 1 tab PO qd x 2d, 1/2 tab PO qd x 2d PREDNISONE 39975806181 No Lo nger Active Carlton Hu MD Active FLUTICASONE PROPIONATE 50 MCG/ACT NASAL SUSPENSION 1 t o 2 sprays each nostril daily FLUTICASONE PROPIONATE 22340941763 No Longer Ac tive Blaine HERNANDEZ Active CHERATUSSIN AC 100-10 MG/5ML ORAL SYRUP 1 tsp by mouth every 4 hours as needed for cough GUAIFENESIN-CODEINE 13082138356 No Longe r Active Blaine HERNANDEZ Active PROMETHAZINE-CODEINE 6.25-10 MG/5ML ORAL SYRUP 1 tsp b y mouth every 6 hours if needed for cough PROMETHAZINE-CODEINE 64424760339 No Longer Active Blaine HERNANDEZ Active CHERATUSSIN AC 100-10 MG/5ML ORAL SYRUP 1 tsp by mouth every 4 hours as needed for cough GUAIFENESIN-CODEINE 87556756321 No Longe r Active Blaine HERNANDEZ Active ZITHROMAX Z-REYNA 250 MG ORAL TABLET 2 today, then 1 daily for 4 d ays AZITHROMYCIN 74709521828 No Longer Active Columba Parrish Act nael ZITHROMAX 250 MG ORAL TABLET 2 po today, then 1 po q days 2-5 20 14/03/21 AZITHROMYCIN 22589433644 No Longer Active Carlton Hu MD Active ZITHROMAX Z-REYNA 250 MG ORAL TABLET 2 today, then 1 daily for 4 d ays AZITHROMYCIN 70389952600 No Longer Active Columba Parrish Act nael AUGMENTIN 875-125 MG ORAL TABLET 1 po BID x 10 days 20 13/01/20 AMOXICILLIN-POT CLAVULANATE 55868879249 No Longer Active Venuriley Daphnebrayan KHAN Active ZITHROMAX 250 MG ORAL TABLET 2 po today, then 1 po q days 2-5 20 12/08/14 AZITHROMYCIN 77344812088 No Longer Active Carlton Hu MD Active PREMARIN 0.625 MG ORAL TABLET TAKE 1 TAB BY MOUTH DAILY ESTROGENS CONJUGATED 15904849409 No Longer Active Ridge Bess DO A ctive CYMBALTA 30 MG ORAL CAPSULE DELAYED RELEASE PARTICLES 1 cap by mouth daily DULOXETINE HCL 27139605108 No Longer Active Ridge tam DO Active AMOXICILLIN 500 MG ORAL CAPSULE 1 tab by mouth 3 times daily x 10 days AMOXICILLIN 77499858150 No Longer Active Carlton bustamante MD Active AMOXICILLIN 500 MG ORAL CAPSULE 1 tab by mouth 3 times daily x 10 days AMOXICILLIN 11422722420 No Longer Active Carlton bustamante MD Active PROMETHAZINE-CODEINE 6.25-10 MG/5ML ORAL SYRUP 1 tsp b y mouth every 8 hours prn cough PROMETHAZINE-CODEINE 16655085923 No Longer Acti ve Carlton Hu MD Active MEDROL 4 MG ORAL TABLET THERAPY PACK 6 pills x 1 day, then 5 pills x 1 day then 4 pills x 1 day, then 3 pills x 1 day, then 2 pills x 1 day, then 1 pill x 1 day, then stop METHYLPREDNISOLONE 94372487940 No Long er Active Perez Mora MD Active AZITHROMYCIN 250 MG ORAL TABLET 2 po qd x 1 day, then 1 po q d x 4 days AZITHROMYCIN 96587431040 No Longer Active Perez Ambriz MD Active SYMBICORT 160-4.5 MCG/ACT INHALATION AEROSOL 2 puffs bid wit h rinse after BUDESONIDE-FORMOTEROL FUMARATE 49919500904 N o Longer Active Perez Mora MD Active LYRICA 75 MG ORAL CAPSULE TAKE 1 CAPSULE BY MOUTH TWICE DAILY PREGABALIN 70861270380 No Longer Active Carlton Hu MD Acti ve TOPAMAX 25 MG ORAL TABLET 1 qHS x 1 week, then 1 BID x 1 week, then 1 qAM and 2 qHS x 1 week, then 2 BID (migraine prevention) T OPIRAMATE 84611355237 No Longer Active Jerica FUENTES Active TOPAMAX 50 MG ORAL TABLET take 1 tab po BID for migraines. 07/02 TOPIRAMATE 54411951172 No Longer Active Jerica FUENTES Active TRIAMCINOLONE ACETONIDE 0.1 % EXTERNAL CREAM apply three roger es daily prn rash TRIAMCINOLONE ACETONIDE 06846302961 No Longer Active Carlton Hu MD Active PAXIL 40 MG ORAL TABLET take 1 tab po qday for depression 0 PAROXETINE HCL 56168675576 Active Carlton Hu MD Active CHERATUSSIN AC 100-10 MG/5ML ORAL SYRUP 5ml po q6hr PRN Cough 20 13/04/14 GUAIFENESIN-CODEINE 95625144129 No Longer Active Carlton Hu MD Active MEDROL 4 MG ORAL TABLET THERAPY PACK 6 tabs on day 1, 5 tabs on day 2, 4 tabs on day 3, 3 tabs on day 4, 2 tabs on day 5, 1 tab on day 6 2013 METHYLPREDNISOLONE 71806952766 No Longer Active Perez Mora MD Active AZITHROMYCIN 250 MG ORAL TABLET 2 po qd x 1 day, then 1 po q d x 4 days AZITHROMYCIN 73024025271 No Longer Active Perez Ambriz MD Active PROPRANOLOL HCL 60 MG ORAL TABLET 1 PO Q D PROPRANOLOL HCL 97957589882 No Longer Active Perez Mora MD Activ e CHERATUSSIN AC 100-10 MG/5ML ORAL SYRUP take one tsp po Q 6h ours prn cough GUAIFENESIN-CODEINE 71846993903 No Longer Active Zia Mora MD Active AUGMENTIN 875-125 MG ORAL TABLET 1 tab by mouth twice daily with food AMOXICILLIN-POT CLAVULANATE 62069624825 No Longer Act nael Perez Mora MD Active CHERATUSSIN AC 100-10 MG/5ML ORAL SYRUP 1 tsp by mouth every 4 hours as needed for cough GUAIFENESIN-CODEINE 64321421969 No Longe r Active Hugo Restrepo MD Active ACETAMINOPHEN-CODEINE #3 300-30 MG ORAL TABLET 1 PO Q 4-6 HRS [facility] N [facility] ACETAMINOPHEN-CODEINE 26834264298 No Longer Active Hugo Restrepo MD Active LEVAQUIN 500 MG ORAL TABLET take one po QD LEVO FLOXACIN 07012625011 No Longer Active Griffin HERNANDEZ Active PREDNISONE 20 MG ORAL TABLET Take 3 tabs daily for 3 d ays, 2 tabs daily for 3 days, 1 tab daily for 3 days, 1/2 tab daily for 3 days 11/07 PREDNISONE 88251246615 No Longer Active Carlton Hu MD Acti ve AVELOX 400 MG ORAL TABLET 1 tab by mouth daily MOXIFLOXACIN HCL 28886062264 No Longer Active Carlton Hu MD Active CHERATUSSIN AC 100-10 MG/5ML ORAL SYRUP 1 tsp by mouth every 4 hours as needed for cough GUAIFENESIN-CODEINE 83151157988 No Longe r Active Hugo Restrepo MD Active AVELOX 400 MG ORAL TABLET 1 tab by mouth daily MOXIFLOXACIN HCL 03654761521 No Longer Active Marcy De La Rosa MD PhD Active TERBINAFINE HCL 250 MG ORAL TABLET 1 qDay T ERBINAFINE HCL 59150394160 No Longer Active Marcy De La Rosa MD PhD Active CHERATUSSIN AC 100-10 MG/5ML ORAL SYRUP 1 tsp by mouth every 4 hours as needed for cough GUAIFENESIN-CODEINE 48264018384 No Longe r Active Marcy De La Rosa MD PhD Active AVELOX 400 MG ORAL TABLET 1 tab by mouth daily MOXIFLOXACIN HCL 55671208015 No Longer Active Marcy De La Rosa MD PhD Active HYDROCODONE-ACETAMINOPHEN 5-325 MG ORAL TABLET 1 po q 6hr PRN co ugh HYDROCODONE-ACETAMINOPHEN 53601831700 No Longer Active Marcy De La Rosa MD PhD Active PREDNISONE 20 MG ORAL TABLET 2 tabs daily for 3 days, 1 tab daily for 3 days, 1/2 tab daily for 2 days PREDNISONE 13954799576 No Longer Active Carlton Hu MD Active CEFDINIR 300 MG ORAL CAPSULE by mouth twice a day 2011 CEFDINIR 14121119160 No Longer Active Carlton Hu MD Acti ve HYDROCHLOROTHIAZIDE 25 MG ORAL TABLET 1 TAB PO DAILY HYDROCHLOROTHIAZIDE 95348131187 Active Carlton Hu MD A ctive ACETAMINOPHEN-CODEINE #3 300-30 MG ORAL TABLET 1 tablet po q 4-6 hrs prn pain ACETAMINOPHEN-CODEINE 64485441119 No Longer Active Ridge Bess DO Active ZITHROMAX 250 MG ORAL TABLET 2 po today, then 1 po q days 2-5 20 03/07/07 AZITHROMYCIN 81044672092 No Longer Active Carlton Hu MD Active CHERATUSSIN AC 100-10 MG/5ML ORAL SYRUP take 1 tsp po q4-6 h ours prn cough GUAIFENESIN-CODEINE 48425675512 No Longer Active Jayden Hu MD Active ACETAMINOPHEN-CODEINE #3 300-30 MG ORAL TABLET 1 PO Q 4-6 HR PRN PAIN ACETAMINOPHEN-CODEINE 67715120629 No Longer Active Arnol Hu MD Active LORTAB 7.5-500 MG/15ML ORAL ELIXIR 7.5 ml po q 4 hour prn cough HYDROCODONE-ACETAMINOPHEN 08905658331 No Longer Active Carlton Hu MD Active PREDNISONE 20 MG ORAL TABLET 1 po bid 3 days, then 1 po q day 3 days PREDNISONE 24177107799 No Longer Active Carlton Hu MD Active CEFDINIR 300 MG ORAL CAPSULE by mouth twice a day 2011 CEFDINIR 74140474862 No Longer Active Carlton Hu MD Acti ve CEFDINIR 300 MG ORAL CAPSULE by mouth twice a day 2010 CEFDINIR 39792443219 No Longer Active Carlton Hu MD Acti ve CEFDINIR 300 MG ORAL CAPSULE by mouth twice a day 2010 CEFDINIR 76479199014 No Longer Active Carlton Hu MD Acti ve TESSALON PERLES 100 MG ORAL CAPSULE 1 tablet by mouth 3 times daily as needed for cough BENZONATATE 86516722040 No Longer Active Carlton Hu MD Active CEFDINIR 300 MG ORAL CAPSULE by mouth twice a day 2010 CEFDINIR 71063705903 No Longer Active Carlton Hu MD Acti ve ZITHROMAX Z-REYNA 250 MG ORAL TABLET 2 today, then 1 daily for 4 d ays AZITHROMYCIN 24668646987 No Longer Active Hugo Restrepo MD Active TESSALON PERLES 100 MG ORAL CAPSULE 1 tablet by mouth 3 times daily as needed for cough TESSALON PERLES 100 MG ORAL CAPSULE 04768 7 BENZONATATE Inactive PREDNISONE 20 MG ORAL TABLET 1 po bid 3 days, then 1 po q day 3 days PREDNISONE 20 MG ORAL TABLET 484080 PREDNISONE [place] ctive LORTAB 7.5-500 MG/15ML ORAL ELIXIR 7.5 ml po q 4 hour prn cough LORTAB 7.5-500 MG/15ML ORAL ELIXIR HYDROCODONE-A CETAMINOPHEN Inactive ACETAMINOPHEN-CODEINE #3 300-30 MG ORAL TABLET 1 PO Q 4-6 HR PRN PAIN ACETAMINOPHEN-CODEINE #3 300-30 MG ORAL TABLET 9 10157 ACETAMINOPHEN-CODEINE Inactive CHERATUSSIN AC 100-10 MG/5ML ORAL SYRUP take 1 tsp po q4-6 h ours prn cough CHERATUSSIN AC 100-10 MG/5ML ORAL SYRUP 986965 GUAIFENESIN-CODEINE Inactive ACETAMINOPHEN-CODEINE #3 300-30 MG ORAL TABLET 1 tablet po q 4-6 hrs prn pain ACETAMINOPHEN-CODEINE #3 300-30 MG ORAL TABLET 543691 ACETAMINOPHEN-CODEINE Inactive HYDROCODONE-ACETAMINOPHEN 5-325 MG ORAL TABLET 1 po q 6hr PRN co ugh HYDROCODONE-ACETAMINOPHEN 5-325 MG ORAL TABLET 003363 HYDROCODONE-ACETAMINOPHEN Inactive AVELOX 400 MG ORAL TABLET 1 tab by mouth daily AVELOX 400 MG ORAL TABLET MOXIFLOXACIN HCL Inactive CHERATUSSIN AC 100-10 MG/5ML ORAL SYRUP 1 tsp by mouth every 4 hours as needed for cough CHERATUSSIN AC 100-10 MG/5ML ORAL SYRUP 9 15775 GUAIFENESIN-CODEINE Inactive TERBINAFINE HCL 250 MG ORAL TABLET 1 qDay 07/08 TERBINAFINE HCL 250 MG ORAL TABLET 563994 TERBINAFINE HCL Inactive CHERATUSSIN AC 100-10 MG/5ML ORAL SYRUP 1 tsp by mouth every 4 hours as needed for cough CHERATUSSIN AC 100-10 MG/5ML ORAL SYRUP 9 87874 GUAIFENESIN-CODEINE Inactive ACETAMINOPHEN-CODEINE #3 300-30 MG ORAL TABLET 1 PO Q 4-6 HRS [facility] N PAIN ACETAMINOPHEN-CODEINE #3 300-30 MG ORAL TABLET 264007 ACETAMINOPHEN-CODEINE Inactive CHERATUSSIN AC 100-10 MG/5ML ORAL SYRUP 1 tsp by mouth every 4 hours as needed for cough CHERATUSSIN AC 100-10 MG/5ML ORAL SYRUP 9 84608 GUAIFENESIN-CODEINE Inactive AUGMENTIN 875-125 MG ORAL TABLET 1 tab by mouth twice daily with food AUGMENTIN 875-125 MG ORAL TABLET AMOXICIL MADELINE-POT CLAVULANATE Inactive CHERATUSSIN AC 100-10 MG/5ML ORAL SYRUP take one tsp po Q 6h ours prn cough CHERATUSSIN AC 100-10 MG/5ML ORAL SYRUP 231295 GUAIFENESIN-CODEINE Inactive PROPRANOLOL HCL 60 MG ORAL TABLET 1 PO Q D PROPRANOLOL HCL 60 MG ORAL TABLET 021947 PROPRANOLOL HCL Inactive TOPAMAX 50 MG ORAL TABLET take 1 tab po BID for migraines. 07/02 TOPAMAX 50 MG ORAL TABLET 815746 TOPIRAMATE Inacti ve TOPAMAX 25 MG ORAL TABLET 1 qHS x 1 week, then 1 BID x 1 week, then 1 qAM and 2 qHS x 1 week, then 2 BID (migraine prevention) TOPAMAX 25 MG ORAL TABLET 267878 TOPIRAMATE Inactive LYRICA 75 MG ORAL CAPSULE TAKE 1 CAPSULE BY MOUTH TWICE DAILY LYRICA 75 MG ORAL CAPSULE 920697 PREGABALIN Inactive SYMBICORT 160-4.5 MCG/ACT INHALATION AEROSOL 2 puffs bid wit h rinse after SYMBICORT 160-4.5 MCG/ACT INHALATION AEROSOL BUDESONIDE- FORMOTEROL FUMARATE Inactive PROMETHAZINE-CODEINE 6.25-10 MG/5ML ORAL SYRUP 1 tsp b y mouth every 8 hours prn cough PROMETHAZINE-CODEINE 6.25-10 MG/ 5ML ORAL SYRUP 718931 PROMETHAZINE-CODEINE Inactive CYMBALTA 30 MG ORAL CAPSULE DELAYED RELEASE PARTICLES 1 cap by mouth daily CYMBALTA 30 MG ORAL CAPSULE DELAYED RELE ASE PARTICLES 092605 DULOXETINE HCL Inactive PREMARIN 0.625 MG ORAL TABLET TAKE 1 TAB BY MOUTH DAILY PREMARIN 0.625 MG ORAL TABLET ESTROGENS CONJUGATED Inactive CHERATUSSIN AC 100-10 MG/5ML ORAL SYRUP 1 tsp by mouth every 4 hours as needed for cough CHERATUSSIN AC 100-10 MG/5ML ORAL SYRUP 9 67634 GUAIFENESIN-CODEINE Inactive PROMETHAZINE-CODEINE 6.25-10 MG/5ML ORAL SYRUP 1 tsp b y mouth every 6 hours if needed for cough PROMETHAZINE-CODEINE 6.25-10 MG/5ML ORAL SYRUP 922396 PROMETHAZINE-CODEINE Inactive CHERATUSSIN AC 100-10 MG/5ML ORAL SYRUP 1 tsp by mouth every 4 hours as needed for cough CHERATUSSIN AC 100-10 MG/5ML ORAL SYRUP 9 86076 GUAIFENESIN-CODEINE Inactive FLUTICASONE PROPIONATE 50 MCG/ACT NASAL SUSPENSION 1 t o 2 sprays each nostril daily FLUTICASONE PROPIONATE 50 MCG/AC T NASAL SUSPENSION 6841274 FLUTICASONE PROPIONATE Inactive PREDNISONE 20 MG ORAL TABLET 3 tab PO qd x 2d, 2 tab P O qd x 2d, 1 tab PO qd x 2d, 1/2 tab PO qd x 2d PREDNISONE 20 MG ORAL TAB LET 109797 PREDNISONE Inactive LEVOFLOXACIN 500 MG ORAL TABLET 1 tab PO daily x 10 days LEVOFLOXACIN 500 MG ORAL TABLET 542374 LEVOFLOXACIN Inactive CYCLOBENZAPRINE HCL 10 MG ORAL TABLET 1 tablet by mouth BID prn had pain CYCLOBENZAPRINE HCL 10 MG ORAL TABLET 322099 CYCLOBENZAPRINE HCL Inactive ZOCOR 40 MG ORAL TABLET 1 tab by mouth daily 4 ZOCOR 40 MG ORAL TABLET 449393 SIMVASTATIN Inactive TUSSIONEX PENNKINETIC ER 10-8 MG/5ML [...] FLUTICASONE PROPIO EFE 50 MCG/ACT NASAL SUSPENSION 5299881 FLUTICASONE PROPIONATE Inactive TUSSIONEX PENNKINETIC ER 10-8 MG/5ML ORAL SUSPENSION E XTENDED RELEASE 5 mL PO q 12 hrs PRN cough TUSSIONEX PENNKINETI C ER 10-8 MG/5ML ORAL SUSPENSION EXTENDED RELEASE HYDROCOD POLST-CHLORPHEN POLST I nactive LYRICA 100 MG ORAL CAPSULE Take 1 tab po BID for fibromyalgia 11/08/21 LYRICA 100 MG ORAL CAPSULE 910017 PREGABALIN Inact nael TUSSIONEX PENNKINETIC ER 10-8 [...] three days PREDNISONE 20 MG ORAL TABLET 185072 PREDNIS ONE Inactive PROAIR HFA 108 (90 BASE) MCG/ACT INHALATION AEROSOL SO LUTION 2 puffs four times a day as needed PROAIR HFA 108 (90 B ASE) MCG/ACT INHALATION AEROSOL SOLUTION ALBUTEROL SULFATE Inactive PREDNISONE 20 MG ORAL TABLET two tabs by mouth today, then one tab by mouth days two and three and four PREDNISONE 20 MG ORAL TAB LET [id number] PREDNISONE Inactive TUSSIONEX PENNKINETIC ER 10-8 MG/5ML [...] bid 04/20 TOPAMAX 100 MG ORAL TABLET 995811 TOPIRAMATE Inactive CYMBALTA 30 MG ORAL CAPSULE DELAYED RELEASE PARTICLES 1 cap by mouth daily for depression CYMBALTA 30 MG ORAL CAPSULE DELAYED RELEASE PARTICLES [id number] DULOXETINE HCL Inactive TYLENOL WITH CODEINE #3 300-30 MG ORAL TABLET 1-2 po q6hr PRN Pa in TYLENOL WITH CODEINE #3 300-30 MG ORAL TABLET 337214 ACETAMINOPHEN-CODEINE Inactive TYLENOL WITH CODEINE #3 300-30 MG ORAL TABLET TYLENOL WITH CODEINE #3 300-30 MG ORAL TABLET 919594 ACETAMINOPHEN-CODEINE Inactive TRIAMCINOLONE ACETONIDE 0.1 % EXTERNAL CREAM apply bid spari ngly to rash TRIAMCINOLONE ACETONIDE 0.1 % EXTERNAL CREAM 101 4314 TRIAMCINOLONE ACETONIDE Inactive ZITHROMAX Z-REYNA 250 MG ORAL TABLET 2 today, then 1 daily for 4 d ays ZITHROMAX Z-REYNA 250 MG ORAL TABLET 514244 AZITHROMYCIN Inactive CEFDINIR 300 MG ORAL CAPSULE by mouth twice a day 2010 CEFDINIR 300 MG ORAL CAPSULE 017913 CEFDINIR Inactive CEFDINIR 300 MG ORAL CAPSULE by mouth twice a day 2010 CEFDINIR 300 MG ORAL CAPSULE 141323 CEFDINIR Inactive CEFDINIR 300 MG ORAL CAPSULE by mouth twice a day 2010 CEFDINIR 300 MG ORAL CAPSULE 143395 CEFDINIR Inactive CEFDINIR 300 MG ORAL CAPSULE by mouth twice a day 2011 CEFDINIR 300 MG ORAL CAPSULE 180227 CEFDINIR Inactive ZITHROMAX 250 MG ORAL TABLET 2 po today, then 1 po q days 2-5 20 03/07/07 ZITHROMAX 250 MG ORAL TABLET 143779 AZITHROMYCIN [place] [facility] CEFDINIR 300 MG ORAL CAPSULE by mouth twice a day 2011 CEFDINIR 300 MG ORAL CAPSULE 659053 CEFDINIR Inactive PREDNISONE 20 MG ORAL TABLET 2 tabs daily for 3 days, 1 tab daily for 3 days, 1/2 tab daily for 2 days PREDNISONE 20 MG ORAL T ABLET 276164 PREDNISONE Inactive AVELOX 400 MG ORAL TABLET [...] days 11/07 PREDNISONE 20 MG ORAL TABLET 464235 PREDNISONE Inactive LEVAQUIN 500 MG ORAL TABLET take one po QD LEVAQUIN 500 MG ORAL TABLET 446831 LEVOFLOXACIN Inactive AZITHROMYCIN 250 MG ORAL TABLET 2 po qd x 1 day, then 1 po q d x 4 days AZITHROMYCIN 250 MG ORAL TABLET 830155 AZITHROMY GIOVANNI Inactive MEDROL 4 MG ORAL TABLET THERAPY PACK 6 tabs on day 1, 5 tabs on day 2, 4 tabs on day 3, 3 tabs on day 4, 2 tabs on day 5, 1 tab on day 6 2013 MEDROL 4 MG ORAL TABLET THERAPY PACK 196976 METHYLPREDNISOLONE [place] ctive CHERATUSSIN AC 100-10 MG/5ML ORAL SYRUP 5ml po q6hr PRN Cough 20 13/04/14 CHERATUSSIN AC 100-10 MG/5ML ORAL SYRUP 834752 GUAIFENE SIN-CODEINE Inactive TRIAMCINOLONE ACETONIDE 0.1 % EXTERNAL CREAM apply three roger es daily prn rash TRIAMCINOLONE ACETONIDE 0.1 % EXTERNAL CREAM 101 4314 TRIAMCINOLONE ACETONIDE Inactive AZITHROMYCIN 250 MG ORAL TABLET 2 po qd x 1 day, then 1 po q d x 4 days AZITHROMYCIN 250 MG ORAL TABLET 140975 AZITHROMY GIOVANNI Inactive MEDROL 4 MG ORAL TABLET THERAPY PACK 6 pills x 1 day, then 5 pills x 1 day then 4 pills x 1 day, then 3 pills x 1 day, then 2 pills x 1 day, then 1 pill x 1 day, then stop MEDROL 4 MG ORAL TABLET THERAPY PACK 488812 METHYLPREDNISOLONE Inactive AMOXICILLIN 500 MG ORAL CAPSULE 1 tab by mouth 3 times daily x 10 days AMOXICILLIN 500 MG ORAL CAPSULE 832063 AMOXICILL IN Inactive AMOXICILLIN 500 MG ORAL CAPSULE 1 tab by mouth 3 times daily x 10 days AMOXICILLIN 500 MG ORAL CAPSULE 369536 AMOXICILL IN Inactive ZITHROMAX 250 MG ORAL TABLET 2 po today, then 1 po q days 2-5 20 12/08/14 ZITHROMAX 250 MG ORAL TABLET 409675 AZITHROMYCIN [place] ct[facility] AUGMENTIN 875-125 MG ORAL TABLET 1 po BID x 10 days 20 13/01/20 AUGMENTIN 875-125 MG ORAL TABLET AMOXICILLIN-POT CLAVULANATE Inactive ZITHROMAX Z-REYNA 250 MG ORAL TABLET 2 today, then 1 daily for 4 d ays ZITHROMAX Z-REYNA 250 MG ORAL TABLET 787693 AZITHROMYCIN Inactive ZITHROMAX 250 MG ORAL TABLET 2 po today, then 1 po q days 2-5 20 14/03/21 ZITHROMAX 250 MG ORAL TABLET 536943 AZITHROMYCIN [place] [facility] ZITHROMAX Z-REYNA 250 MG ORAL TABLET 2 today, then 1 daily for 4 d ays ZITHROMAX Z-REYNA 250 MG ORAL TABLET 760674 AZITHROMYCIN Inactive CEFDINIR 300 MG ORAL CAPSULE 1 po BID x 10 days 06/21 CEFDINIR 300 MG ORAL CAPSULE 20020704 CEFDINIR Inactive ZITHROMAX 250 MG ORAL TABLET 2 po today, then 1 po q days 2-5 20 13/08/10 ZITHROMAX 250 MG ORAL TABLET 095392 AZITHROMYCIN [place] [facility] LEVAQUIN 500 MG ORAL TABLET 1 tablet by mouth daily 13/09/24 LEVAQUIN 500 MG ORAL TABLET 19971102 LEVOFLOXACIN Inactive SINGULAIR 10 MG ORAL TABLET 1 po qday for allergies 20 14/01/12 SINGULAIR 10 MG ORAL TABLET 20010504 MONTELUKAST SODIUM Inactive AMOXICILLIN 500 MG ORAL CAPSULE 2 po BID x 10 days 201 09/29/08 AMOXICILLIN 500 MG ORAL CAPSULE 692154 AMOXICILLIN Inactive PREDNISONE 20 MG ORAL TABLET 2 tabs daily for 3 days, 1 tab daily for 3 days, 1/2 tab daily for 2 days PREDNISONE 20 MG ORAL T ABLET 955080 PREDNISONE Inactive ZITHROMAX Z-REYNA 250 MG ORAL TABLET 2 today, then 1 daily for 4 d ays ZITHROMAX Z-REYNA 250 MG ORAL TABLET 114501 AZITHROMYCIN Inactive PREDNISONE 20 MG ORAL TABLET 2 tabs daily for 3 days, 1 tab daily for 3 days, 1/2 tab daily for 2 days PREDNISONE 20 MG ORAL T ABLET 153220 PREDNISONE Inactive ZITHROMAX 250 MG ORAL TABLET 2 po today, then 1 po q days 2-5 20 14/09/04 ZITHROMAX 250 MG ORAL TABLET 260267 AZITHROMYCIN [place] [facility] AMOXICILLIN 500 MG ORAL CAPSULE 1 cap by mouth three times a day AMOXICILLIN 500 MG ORAL CAPSULE 540317 AMOXICILLIN Inactive TERBINAFINE HCL 250 MG ORAL TABLET 1 qDay for nail fungus 7 TERBINAFINE HCL 250 MG ORAL TABLET 868936 TERBINAFINE HCL Inact nael AUGMENTIN 875-125 MG ORAL TABLET 1 po BID x 10 days 20 16/03/22 AUGMENTIN 875-125 MG ORAL TABLET AMOXICILLIN-POT CLAVULANATE Inactive PREDNISONE 20 MG ORAL TABLET 2 po qd x 5 days PREDNISONE 20 MG ORAL TABLET 596077 PREDNISONE Inactive AZITHROMYCIN 250 MG ORAL TABLET 2 po qd x 1 day, then 1 po q d x 4 days AZITHROMYCIN 250 MG ORAL TABLET 816989 AZITHROMY GIOVANNI Inactive PREDNISONE 50 MG ORAL TABLET Take 50 mg dialy for 6 day s 7 PREDNISONE 50 MG ORAL TABLET 574591 PREDNISONE Inactive AUGMENTIN 875-125 MG ORAL TABLET 1 po BID x 10 days 20 18/04/16 AUGMENTIN 875-125 MG ORAL TABLET AMOXICILLIN-POT CLAVULANATE Inactive DOXYCYCLINE HYCLATE 100 MG ORAL CAPSULE 1 cap by mouth twice latasha ly DOXYCYCLINE HYCLATE 100 MG ORAL CAPSULE 2724181 DOXYCYCL INE HYCLATE Inactive PREDNISONE 20 MG ORAL TABLET Take 2 tabs day 1 and 2 and 1 t ab days 3 and 4 PREDNISONE 20 MG ORAL TABLET 397642 PREDNISONE Inactive AMOXICILLIN 500 MG ORAL CAPSULE 1 cap by mouth twice daily 10/21 AMOXICILLIN 500 MG ORAL CAPSULE 760967 AMOXICILLIN Inactive TRIAMCINOLONE ACETONIDE 0.1 % EXTERNAL OINTMENT Apply to affected areas TID PRN Rash/Itching for up 2 weeks TRIAMCINOLON E ACETONIDE 0.1 % EXTERNAL OINTMENT 9392731 TRIAMCINOLONE ACETONIDE Inactive ACYCLOVIR 800 MG ORAL TABLET 1 po 5 times daily x 7 days ACYCLOVIR 800 MG ORAL TABLET 434355 ACYCLOVIR Inactive Vital Signs Date Name Value [...] Panel - Chemistry sodium, serum 137 mmol/L [phone]/10/08 carbon dioxide, venous blood 29.9 mmol/L 21.0-32 [...] 0.50 mg/dL 0.00-1.00 cholesterol, serum 324 mg/dL 414-205 3808/10/08 triglyceride, serum, fasting 130 mg/dL 30-200 HDL [...] negative Encounters Code Encounter Date Provider Facility CPT-47606 Level 3 Est. Patient 14:41:20 RFID SPECIALIST David lion [facility] CPT-77668 [id number] Vst-Est Level IV 09:06:31 C ESAU Hu MD [facility] CPT-65058 Level 3 Est. Patient 14:16:41 CDT David lion [facility] CPT-15694 Level 3 Est. Patient 13:57:55 CDT David lion [facility] CPT-56787 Level 3 Est. Patient 16:08:07 CDT David lion [facility] CPT-51295 Level 3 Est. Patient 16:53:54 CDT May haas MD [facility] CPT-80496 [id number] Vst-Est Level IV 08:41:[address] Carlton Hu MD [facility] CPT-52333 Level 3 Est. Patient 09:46:49 RFID SPECIALIST David lion [facility] CPT-97306 [id number] Vst-Est Level III 11:12:16 CDT Yanet Bess DO [facility] CPT-46957 Level 3 Est. Patient 11:34:49 RFID SPECIALIST Perez Mora MD [facility] CPT-23981 Level 4 Est. Patient 09:51:32 RFID SPECIALIST Carlton rich MD [facility] CPT-28385 Level 3 Est. Patient 10:26:00 RFID SPECIALIST Elise stephenson [facility] CPT-01101 Level 3 Est. Patient 13:35:41 RFID SPECIALIST Carlton rich MD [facility] CPT-29582 Level 3 Est. Patient 10:03:52 RFID SPECIALIST Carlton rich MD [facility] CPT-22855 Level 3 Est. Patient 12:17:50 CDT Hugo Restrepo MD [facility] CPT-07129 Level 3 Est. Patient 13:42:38 CDT Elise Hitchcock ll [facility] CPT-53499 Level 3 Est. Patient 13:23:51 CDT Diya cobian [facility] CPT-84236 Level 3 Est. Patient 14:22:19 RFID SPECIALIST Diya cobian [facility] CPT-57815 Level 3 Est. Patient 10:11:46 CDT Carlton rich MD [facility] CPT-98042 Level 3 Est. Patient 17:29:43 CDT Elise Are ll [facility] CPT-29694 Level 3 Est. Patient 11:58:06 CDT Elise Are ll [facility] PARTNER [facility] CPT-15190 Level 4 Est. Patient 14:36:51 CDT Carlton rich MD [facility] CPT-68225 Level 3 Est. Patient 18:16:00 RFID SPECIALIST Blaine Freeman [facility] CPT-16928 Level 3 Est. Patient 09:45:49 RFID SPECIALIST Carlton rich MD [facility] CPT-79677 Level 3 Est. Patient 13:19:20 CDT Carlton rich MD [facility] [place]-[id number] Level 3 Est. Patient 13:06:43 CDT Ridge tam DO [facility] CPT-33792 Level 3 Est. Patient 10:03:07 CDT Perez Mora MD [facility] CPT-33547 Level 3 Est. Patient 19:50:35 RFID SPECIALIST Cralton rich MD [facility] [place]-78868 Level 4 Est. Patient 18:05:01 RFID SPECIALIST Carlton rich MD [facility] CPT-34446 Level 3 Est. Patient 10:45:55 RFID SPECIALIST Hugo Restrepo MD [facility] CPT-12564 Level 3 Est. Patient 14:12:49 CDT Griffin lincoln [facility] CPT-22808 Level 3 Est. Patient 17:37:24 CDT Carlton rich MD [facility] [place]-79076 Level 3 Est. Patient 16:51:54 CDT Carlton rich MD [facility] [place]-22029 Level 3 Est. Patient 12:18:11 CDT Hugo Restrepo MD [facility] CPT-04817 Level 3 Est. Patient 11:30:25 CDT Marcy crisostomo MD PhD [facility] CPT-69331 Level 3 Est. Patient 12:00:47 RFID SPECIALIST Carlton rich MD [facility] CPT-91490 Level 3 Est. Patient 16:31:06 RFID SPECIALIST Carlton rich MD [facility] CPT-41645 Level 3 Est. Patient 16:23:24 RFID SPECIALIST Ridge tam [facility] CPT-40487 Level 3 Est. Patient 12:34:12 CDT Carlton rich MD [facility] CPT-97365 Level 2 Est. Patient 15:43:33 CDT Robi armstrong MD [facility] CPT-88512 Level 4 Est. Patient 14:04:44 CDT Carlton rich MD [facility] CPT-82667 Level 3 Est. Patient 05:47:59 CDT Ridge tam [facility] CPT-69359 Level 3 Est. Patient 13:12:53 RFID SPECIALIST Carlton rich MD [facility] CPT-02796 Level 3 Est. Patient 14:26:53 CDT Hugo Restrepo MD [facility] Procedures Code Procedure Name Date Entry Date Standard Desc ription [id number] (4274F 2P) Patient Reason Influenza immu nization not administered 14:13:39 RFID SPECIALIST CPT-04189 Venipuncture Draw Fee 15:53:34 CDT CPT-000 Give Appropriate Flu Vaccine 14:14:31 CDT 2 CPT-J1040 Depo Medrol 80 mg (Methyl Prednisolone A cetate) 10:42:44 CDT CPT-J1100 Decadron 8mg (Dexamethasone) 10:42:44 CDT 2 CPT-J0696 Rocephin 1gm Inj Solr 14:32:13 CDT CPT-J1020 Depo Medrol 60 mg (Methyl Prednisolone A cetate) 14:32:13 CDT CPT-J1100 Decadron 6mg (Dexamethasone) 14:32:13 CDT 2 CPT-74639 Hip bilat min 2V w AP pelvis 13:16:20 CDT 2 CPT-06933 Pelvis only 13:07:33 CDT CPT-63455 Spec Collection and Handling Fee 11:25:12 C DT CPT-37358 Fluzone Quadrivalent Intramuscular Suspe nsion 0.5 ML 14:31:55 CDT CPT-06612 Abx/Therapy Injection 13:28:47 RFID SPECIALIST CPT-J2930 Solu Medrol 125 mg (Methyl Prednisolone Sodium Succinate) 12:00:47 RFID SPECIALIST CPT-75228 Venipuncture Draw Fee 11:33:31 CDT CPT-70477 EKG Trac and Interp 11:21:09 CDT CPT-69776 Chest 2V Frontal and Lat 11:21:09 CDT 12/15 CPT-24609 Venipuncture Draw Fee 08:02:34 CDT CPT-98272 Chest 2V Frontal and Lat 05:47:59 CDT 06/05
--- OUTSIDE RECORDS SUMMARY | 2019-10-08 08:50 | XMS REPORT | Clinical Summary ---
Author Author Caitlin, Juliana Martinez Organization [facility] Address Unknown Phone Unavailable Allergies, Adverse Reactions, Alerts Allergy Name Reaction Description Start Date Severity Status Pr ovider No Known Allergies Thu Neely MA Conditions or Problems Problem Name Problem [...] Acute bronchitis URI - acute 465.9 Resolved Hguo Restrepo MD Acute upper respiratory infections of [...] URI 465.9 Inactive Ridge Bess DO Ac wainwright upper respiratory infections of unspecified site Body Mass Index 35.0-35.9 Adult Refinement 2017 Ridge Bess DO Body Mass Index 35.0-35.9, adult BMI 34-34.9 Refinement Cherelle Torres RN Body Mass Index 35.0-35.9, adult BMI 35-35.9 Refinement David Marianneamisha RICEN Body Mass Index 35.0-35.9, adult BMI 34-34.9 Refinement May Vivar MD Body Mass Index 35.0-35.9, adult BMI 35-35.9 Refinement David Marianne 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 SHUCKING MACHINE TENDER Body Mass Index 35.0-35.9, adult BMI 33-33.9 Active David Marianne CLAM SHUCKING MACHINE TENDER Body Mass Index 35.0-35.9, adult Upper respiratory infection, viral 465.9 Active 2 Perez Mora MD Acute upper respiratory infections of un specified site Obesity Class I (BMI 30-34.9) Refinement Jose Torres RN Obesity, unspecified Morbid obesity due to excess calories [facility] David Marianneamisha RICEN Obesity, unspecified [...] nonspecific skin eruption 782.1 Active David Marianne CLAM SHUCKING MACHINE TENDER Rash and other nonspecific skin eruption Pharyngitis, acute / sore throat 462 Active 201 12/06/23 David Marianne CLAM SHUCKING MACHINE TENDER Acute pharyngitis Shingles 053.9 Active David Marianne CLAM SHUCKING MACHINE TENDER Herpes zoster without mention of complication BRONCHITIS ICD-490 Inactive Hugo Restrepo MD 201 [...] Generic Name NDC Status Provider Patient Instruction TYLENOL WITH CODEINE #3 300-30 MG ORAL TABLET ACETAMINOPHEN-CODEINE [id number] Active David Marianne CLAM SHUCKING MACHINE TENDER A ctive TRIAMCINOLONE ACETONIDE 0.1 % EXTERNAL CREAM apply bid spari ngly to rash TRIAMCINOLONE ACETONIDE 47697095754 Active David Marianne CLAM SHUCKING MACHINE TENDER Active TYLENOL WITH CODEINE #3 300-30 MG ORAL TABLET 1-2 po q6hr PRN Pa in ACETAMINOPHEN-CODEINE 34326439619 No Longer Active David Marianne AP RN Active ACYCLOVIR 800 MG ORAL TABLET 1 po 5 times daily x 7 days ACYCLOVIR 86414308331 No Longer Active David Marianne CLAM SHUCKING MACHINE TENDER Active TOPAMAX 100 MG ORAL TABLET 1 by mouth twice daily TOPIRAMATE 12422734802 Active Columba Raida Active TRIAMCINOLONE ACETONIDE 0.1 % EXTERNAL OINTMENT Apply to affected areas TID PRN Rash/Itching for up 2 weeks TRIAMCINOLONE ACETON KAYLA 02893293250 No Longer Active David Marianne CLAM SHUCKING MACHINE TENDER Active AMOXICILLIN 500 MG ORAL CAPSULE 1 cap by mouth twice daily 10/21 AMOXICILLIN 48180356368 No Longer Active David Marianne CLAM SHUCKING MACHINE TENDER Active ELMIRON 100 MG ORAL CAPSULE 2 capsules in the morning and 1 capsule at night PENTOSAN POLYSULFATE SODIUM 29178133463 Active Cinthia H art 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 Active CYMBALTA 30 MG ORAL CAPSULE DELAYED RELEASE PARTICLES 1 cap by mouth daily for depression DULOXETINE HCL 69234375858 No Longer Active Carlton Hu MD Active CYMBALTA 60 MG ORAL CAPSULE DELAYED RELEASE PARTICLES 1 cap by mouth daily for mood and pain DULOXETINE HCL 11378410068 Active Carlton Hu MD Active TUSSIONEX PENNKINETIC ER 10-8 MG/5ML ORAL SUSPENSION E XTENDED RELEASE 5ml po q12hr PRN Cough HYDROCOD POLST-CHLORPHEN POLST 46823378651 Active David Marianne CLAM SHUCKING MACHINE TENDER Active PREDNISONE 20 MG ORAL TABLET Take 2 tabs day 1 and 2 and 1 t ab days 3 and 4 PREDNISONE 86665789821 No Longer Active David Marianne CLAM SHUCKING MACHINE TENDER Active DOXYCYCLINE HYCLATE 100 MG ORAL CAPSULE 1 cap by mouth twice latasha ly DOXYCYCLINE HYCLATE 59698740647 No Longer Active David Marianne CLAM SHUCKING MACHINE TENDER Active TOPAMAX 100 MG ORAL TABLET Take 1 tablet po bid TOPIRAMATE 44817402468 No Longer Active David Marianne CLAM SHUCKING MACHINE TENDER Active TUSSIONEX PENNKINETIC ER 10-8 MG/5ML ORAL SUSPENSION E XTENDED RELEASE 5ml po q12hr PRN Cough HYDROCOD POLST-CHLORPHEN POLST 5 9380718756 No Longer Active David Marianne CLAM SHUCKING MACHINE TENDER Active AUGMENTIN 875-125 MG ORAL TABLET 1 po BID x 10 days 18/04/16 AMOXICILLIN-POT CLAVULANATE 04356736928 No Longer Active David Marianne CLAM SHUCKING MACHINE TENDER Active PREDNISONE 50 MG ORAL TABLET Take 50 mg dialy for 6 day s 7 PREDNISONE 79090293204 No Longer Active David Marianne CLAM SHUCKING MACHINE TENDER Active TUSSIONEX PENNKINETIC ER 10-8 MG/5ML ORAL SUSPENSION E XTENDED RELEASE 5ml po q12hr PRN Cough HYDROCOD POLST-CHLORPHEN POLST 5 3556572877 No Longer Active Cherelle Torres RN Active PREDNISONE 20 MG ORAL TABLET two tabs by mouth today, then one tab by mouth days two and three and four PREDNISONE 23916904295 No Lo nger Active Cherelle Torres RN Active AZITHROMYCIN 250 MG ORAL TABLET 2 po qd x 1 day, then 1 po q d x 4 days AZITHROMYCIN 04944916452 No Longer Active Ridge Bess DO Active PREDNISONE 20 MG ORAL TABLET 2 po qd x 5 days P REDNISONE 40772473366 No Longer Active Perez Mora MD Active PROAIR HFA 108 (90 BASE) MCG/ACT INHALATION AEROSOL SO LUTION 2 puffs four times a day as needed ALBUTEROL SULFATE 40221200221 No Long er Active Becky FUENTES Active ASPIRIN 81 MG ORAL TABLET 1 po qd ASPIRIN 35716462889 Active Carlton Hu MD Active PREDNISONE 20 MG ORAL TABLET 1 tab twice daily for 3 d ay, then one daily for three days PREDNISONE 86687611545 No Longer Active Carlton Hu MD Active AUGMENTIN 875-125 MG ORAL TABLET 1 po BID x 10 days 16/03/22 AMOXICILLIN-POT CLAVULANATE 26140359954 No Longer Active Elise Garcia APRN Active TERBINAFINE HCL 250 MG ORAL TABLET 1 qDay for nail fungus 7 TERBINAFINE HCL 60283905948 No Longer Active Carlton Hu MD A ctive AMOXICILLIN 500 MG ORAL CAPSULE 1 cap by mouth three times a day AMOXICILLIN 55406502469 No Longer Active Carlton Hu MD Active ELMIRON 100 MG ORAL CAPSULE 2 tablets in the am and 1 tablet at hs PENTOSAN POLYSULFATE SODIUM 07081110689 No Longer Active Robert Hu MD Active MUCINEX D 60-600 MG ORAL TABLET EXTENDED RELEASE 12 HOUR 1 t ab po q am PSEUDOEPHEDRINE-GUAIFENESIN 27124776966 No Longer Act nael Carlton Hu MD Active MUCINEX DM MAXIMUM STRENGTH 60-1200 MG ORAL TABLET EXT ENDED RELEASE 12 HOUR 1 tab po q am DEXTROMETHORPHAN-GUAIFENESIN 80589672401 No Longer Active Carlton Hu MD Active TUSSIONEX PENNKINETIC ER 10-8 MG/5ML ORAL SUSPENSION E XTENDED RELEASE 5ml po q12hr PRN Cough HYDROCOD POLST-CHLORPHEN POLST 5 3141308925 No Longer Active Carlton Hu MD Active POTASSIUM CHLORIDE ER 20 MEQ ORAL TABLET EXTENDED RELE ASE Take 1 by mouth 4 times daily for 7 days POTASSIUM CHLORIDE 84085884742 No Longer Active Carlton Hu MD Active ZITHROMAX 250 MG ORAL TABLET 2 po today, then 1 po q days 2-5 20 14/09/04 AZITHROMYCIN 83940720053 No Longer Active Elise Garcia APRN Active TUSSIONEX PENNKINETIC ER 10-8 MG/5ML ORAL SUSPENSION E XTENDED RELEASE 5 ml twice a day as needed for cough HYDROCOD POLST-CHLORPH EN POLST 94153363056 No Longer Active Elise Garcia APRN Active MONTELUKAST SODIUM 10 MG ORAL TABLET 1 po daily for Allergy MONTELUKAST SODIUM 10461360482 Active Carlton Hu MD Ac tive TUSSIONEX PENNKINETIC ER 10-8 MG/5ML ORAL SUSPENSION E XTENDED RELEASE 5ml po q12hr PRN Cough HYDROCOD POLST-CHLORPHEN POLST 5 0863838947 No Longer Active Hugo Restrepo MD Active GABAPENTIN 100 MG ORAL CAPSULE 1 po BID for fibromyalgia GABAPENTIN 87257186722 Active ALFREDO Holly Active LYRICA 100 MG ORAL CAPSULE Take 1 tab po BID for fibromyalgia 20 11/08/21 PREGABALIN 52474741860 No Longer Active Elise Garcia APRN A ctive PREDNISONE 20 MG ORAL TABLET 2 tabs daily for 3 days, 1 tab daily for 3 days, 1/2 tab daily for 2 days PREDNISONE 50325896240 No Longer Active Diya De Guzman APRN Active TUSSIONEX PENNKINETIC ER 10-8 MG/5ML ORAL SUSPENSION E XTENDED RELEASE 5 mL PO q 12 hrs PRN cough HYDROCOD POLST-CHLORPHEN POLST 447568 86515 No Longer Active Diya De Guzman CLAM SHUCKING MACHINE TENDER Active FLUTICASONE PROPIONATE 50 MCG/ACT NASAL SUSPENSION 2 s prays each nostril daily until bottle is empty FLUTICASONE PROPIONATE 027189191 99 No Longer Active Jillina Cesarl CLAM SHUCKING MACHINE TENDER Active ASMANEX 60 METERED DOSES 220 MCG/INH INHALATION AEROSO L POWDER BREATH ACTIVATED 1 puff bid with rinse after MOMETASONE FUROATE 1125898 4102 No Longer Active Venullina Gege CLAM SHUCKING MACHINE TENDER Active ZITHROMAX Z-REYNA 250 MG ORAL TABLET 2 today, then 1 daily for 4 d ays AZITHROMYCIN 68041257247 No Longer Active Elise Garcia APRN Active TUSSIONEX PENNKINETIC ER 10-8 MG/5ML ORAL SUSPENSION E XTENDED RELEASE 5ml po q12hr PRN Cough HYDROCOD POLST-CHLORPHEN POLST 5 5768069947 No Longer Active Elise Garcia APRN Active PREDNISONE 20 MG ORAL TABLET 2 tabs daily for 3 days, 1 tab daily for 3 days, 1/2 tab daily for 2 days PREDNISONE 92408348604 No Longer Active Diya De Guzman APRN Active AMOXICILLIN 500 MG ORAL CAPSULE 2 po BID x 10 days 201 09/29/08 AMOXICILLIN 26545568177 No Longer Active Diya De Guzman APRN Act nael SINGULAIR 10 MG ORAL TABLET 1 po qday for allergies 20 14/01/12 MONTELUKAST SODIUM 10471359431 No Longer Active Carlton Hu MD Active LEVAQUIN 500 MG ORAL TABLET 1 tablet by mouth daily 20 13/09/24 LEVOFLOXACIN 84460291032 No Longer Active Carlton Hu MD Acti ve FLUTICASONE PROPIONATE 50 MCG/ACT NASAL SUSPENSION 2 s prays each nostril daily for 2 weeks, then 1 spray each nostril daily. FLUTICASONE PROPIONATE 72331088943 Active Carlton Hu MD Active ZITHROMAX 250 MG ORAL TABLET 2 po today, then 1 po q days 2-5 20 13/08/10 AZITHROMYCIN 58210796241 No Longer Active Elise Arell CLAM SHUCKING MACHINE TENDER Active XANAX 0.5 MG ORAL TABLET one tablet by mouth daily prn anxiety 2015 ALPRAZOLAM 52409536921 Active ALFREDO Holly Active CEFDINIR 300 MG ORAL CAPSULE 1 po BID x 10 days CEFDINIR 00535588908 No Longer Active Carlton Hu MD Active ZOCOR 40 MG ORAL TABLET 1 tab by mouth daily SI MVASTATIN 51122297268 No Longer Active Carlton Hu MD Active CYCLOBENZAPRINE HCL 10 MG ORAL TABLET 1 tablet by mouth BID prn had pain CYCLOBENZAPRINE HCL 51900675656 No Longer Active Jayden Hu MD Active LEVOFLOXACIN 500 MG ORAL TABLET 1 tab PO daily x 10 days LEVOFLOXACIN 19998721429 No Longer Active Carlton Hu MD Acti ve PREDNISONE 20 MG ORAL TABLET 3 tab PO qd x 2d, 2 tab P O qd x 2d, 1 tab PO qd x 2d, 1/2 tab PO qd x 2d PREDNISONE 73417893175 No Lo nger Active Carlton Hu MD Active FLUTICASONE PROPIONATE 50 MCG/ACT NASAL SUSPENSION 1 t o 2 sprays each nostril daily FLUTICASONE PROPIONATE 34810052581 No Longer Ac tive Blaine HERNANDEZ Active CHERATUSSIN AC 100-10 MG/5ML ORAL SYRUP 1 tsp by mouth every 4 hours as needed for cough GUAIFENESIN-CODEINE 77646615126 No Longe r Active Blaine HERNANDEZ Active PROMETHAZINE-CODEINE 6.25-10 MG/5ML ORAL SYRUP 1 tsp b y mouth every 6 hours if needed for cough PROMETHAZINE-CODEINE 22293671730 No Longer Active Blaine HERNANDEZ Active CHERATUSSIN AC 100-10 MG/5ML ORAL SYRUP 1 tsp by mouth every 4 hours as needed for cough GUAIFENESIN-CODEINE 80042957810 No Longe r Active Blaine HERNANDEZ Active ZITHROMAX Z-REYNA 250 MG ORAL TABLET 2 today, then 1 daily for 4 d ays AZITHROMYCIN 64176952903 No Longer Active Columba Raida Act nael ZITHROMAX 250 MG ORAL TABLET 2 po today, then 1 po q days 2-5 20 14/03/21 AZITHROMYCIN 53208531420 No Longer Active Carlton Hu MD Active ZITHROMAX Z-REYNA 250 MG ORAL TABLET 2 today, then 1 daily for 4 d ays AZITHROMYCIN 78716802060 No Longer Active Columba Raida Act nael AUGMENTIN 875-125 MG ORAL TABLET 1 po BID x 10 days 13/01/20 AMOXICILLIN-POT CLAVULANATE 75247303021 No Longer Active Diya De Guzman APRN Active ZITHROMAX 250 MG ORAL TABLET 2 po today, then 1 po q days 2-5 20 12/08/14 AZITHROMYCIN 25454231177 No Longer Active Carlton uH MD Active TRAMADOL HCL 50 MG ORAL TABLET 1 po tid with ES Tylenol TRAMADOL HCL 91335843927 Active Carlton Hu MD Active PREMARIN 0.625 MG ORAL TABLET TAKE 1 TAB BY MOUTH DAILY ESTROGENS CONJUGATED 04243555898 No Longer Active Ridge Bess DO A ctive CYMBALTA 30 MG ORAL CAPSULE DELAYED RELEASE PARTICLES 1 cap by mouth daily DULOXETINE HCL 42986785366 No Longer Active Ridge Ya ee DO Active AMOXICILLIN 500 MG ORAL CAPSULE 1 tab by mouth 3 times daily x 10 days AMOXICILLIN 40142281307 No Longer Active Carlton bustamante MD Active AMOXICILLIN 500 MG ORAL CAPSULE 1 tab by mouth 3 times daily x 10 days AMOXICILLIN 91309073453 No Longer Active Carlton bustamante MD Active PROMETHAZINE-CODEINE 6.25-10 MG/5ML ORAL SYRUP 1 tsp b y mouth every 8 hours prn cough PROMETHAZINE-CODEINE 00527718542 No Longer Acti ve Carlton Hu MD Active MEDROL 4 MG ORAL TABLET THERAPY PACK 6 pills x 1 day, then 5 pills x 1 day then 4 pills x 1 day, then 3 pills x 1 day, then 2 pills x 1 day, then 1 pill x 1 day, then stop METHYLPREDNISOLONE 60065033766 No Long er Active Perez Mora MD Active AZITHROMYCIN 250 MG ORAL TABLET 2 po qd x 1 day, then 1 po q d x 4 days AZITHROMYCIN 72650750381 No Longer Active Perez Ambriz MD Active SYMBICORT 160-4.5 MCG/ACT INHALATION AEROSOL 2 puffs bid wit h rinse after BUDESONIDE-FORMOTEROL FUMARATE 71195393038 N o Longer Active Perez Mora MD Active LYRICA 75 MG ORAL CAPSULE TAKE 1 CAPSULE BY MOUTH TWICE DAILY PREGABALIN 60773932351 No Longer Active Carlton Hu MD Acti ve TOPAMAX 25 MG ORAL TABLET 1 qHS x 1 week, then 1 BID x 1 week, then 1 qAM and 2 qHS x 1 week, then 2 BID (migraine prevention) T OPIRAMATE 64131596203 No Longer Active Jerica FUENTES Active TOPAMAX 50 MG ORAL TABLET take 1 tab po BID for migraines. 07/02 TOPIRAMATE 77581710763 No Longer Active Jerica FUENTES Active TRIAMCINOLONE ACETONIDE 0.1 % EXTERNAL CREAM apply three roger es daily prn rash TRIAMCINOLONE ACETONIDE 94251801722 No Longer Active Carlton Hu MD Active PAXIL 40 MG ORAL TABLET take 1 tab po qday for depression 0 PAROXETINE HCL 46582129787 Active Carlton Hu MD Active CHERATUSSIN AC 100-10 MG/5ML ORAL SYRUP 5ml po q6hr PRN Cough 20 13/04/14 GUAIFENESIN-CODEINE 34942197565 No Longer Active Carlton Hu MD Active MEDROL 4 MG ORAL TABLET THERAPY PACK 6 tabs on day 1, 5 tabs on day 2, 4 tabs on day 3, 3 tabs on day 4, 2 tabs on day 5, 1 tab on day 6 2013 METHYLPREDNISOLONE 66171491525 No Longer Active Perez Mora MD Active AZITHROMYCIN 250 MG ORAL TABLET 2 po qd x 1 day, then 1 po q d x 4 days AZITHROMYCIN 76239231871 No Longer Active Perez Ambriz MD Active PROPRANOLOL HCL 60 MG ORAL TABLET 1 PO Q D PROPRANOLOL HCL 48915186258 No Longer Active Perez Mora MD Activ e CHERATUSSIN AC 100-10 MG/5ML ORAL SYRUP take one tsp po Q 6h ours prn cough GUAIFENESIN-CODEINE 14243139780 No Longer Active Zia Mora MD Active AUGMENTIN 875-125 MG ORAL TABLET 1 tab by mouth twice daily with food AMOXICILLIN-POT CLAVULANATE 41498745139 No Longer Act nael Perez Mora MD Active CHERATUSSIN AC 100-10 MG/5ML ORAL SYRUP 1 tsp by mouth every 4 hours as needed for cough GUAIFENESIN-CODEINE 90144232277 No Longe r Active Hugo Restrepo MD Active ACETAMINOPHEN-CODEINE #3 300-30 MG ORAL TABLET 1 PO Q 4-6 HRS MD N PAIN ACETAMINOPHEN-CODEINE 28074778494 No Longer Active Hugo Restrepo MD Active LEVAQUIN 500 MG ORAL TABLET take one po QD LEVO FLOXACIN 57098478138 No Longer Active Griffin HERNANDEZ Active PREDNISONE 20 MG ORAL TABLET Take 3 tabs daily for 3 d ays, 2 tabs daily for 3 days, 1 tab daily for 3 days, 1/2 tab daily for 3 days 11/07 PREDNISONE 60297159149 No Longer Active Carlton Hu MD Acti ve AVELOX 400 MG ORAL TABLET 1 tab by mouth daily MOXIFLOXACIN HCL 06084360212 No Longer Active Carlton Hu MD Active CHERATUSSIN AC 100-10 MG/5ML ORAL SYRUP 1 tsp by mouth every 4 hours as needed for cough GUAIFENESIN-CODEINE 70025442147 No Longe r Active Hugo Restrepo MD Active AVELOX 400 MG ORAL TABLET 1 tab by mouth daily MOXIFLOXACIN HCL 65689365632 No Longer Active Marcy De La Rosa MD PhD Active TERBINAFINE HCL 250 MG ORAL TABLET 1 qDay T ERBINAFINE HCL 34630344806 No Longer Active Marcy De La Rosa MD PhD Active CHERATUSSIN AC 100-10 MG/5ML ORAL SYRUP 1 tsp by mouth every 4 hours as needed for cough GUAIFENESIN-CODEINE 82434868306 No Longe r Active Marcy De La Rosa MD PhD Active AVELOX 400 MG ORAL TABLET 1 tab by mouth daily MOXIFLOXACIN HCL 73342571511 No Longer Active Marcy De La Rosa MD PhD Active HYDROCODONE-ACETAMINOPHEN 5-325 MG ORAL TABLET 1 po q 6hr PRN co ugh HYDROCODONE-ACETAMINOPHEN 39470215147 No Longer Active Marcy De La Rosa MD PhD Active PREDNISONE 20 MG ORAL TABLET 2 tabs daily for 3 days, 1 tab daily for 3 days, 1/2 tab daily for 2 days PREDNISONE 69328687157 No Longer Active Carlton Hu MD Active CEFDINIR 300 MG ORAL CAPSULE by mouth twice a day 2011 CEFDINIR 21714979087 No Longer Active Carlton Hu MD Acti ve HYDROCHLOROTHIAZIDE 25 MG ORAL TABLET 1 TAB PO DAILY HYDROCHLOROTHIAZIDE 12151578766 Active Carlton Hu MD A ctive ACETAMINOPHEN-CODEINE #3 300-30 MG ORAL TABLET 1 tablet po q 4-6 hrs prn pain ACETAMINOPHEN-CODEINE 50700458795 No Longer Active Ridge Bess DO Active ZITHROMAX 250 MG ORAL TABLET 2 po today, then 1 po q days 2-5 20 03/07/07 AZITHROMYCIN 56825231446 No Longer Active Carlton Hu MD Active CHERATUSSIN AC 100-10 MG/5ML ORAL SYRUP take 1 tsp po q4-6 h ours prn cough GUAIFENESIN-CODEINE 51317121585 No Longer Active Jayden Hu MD Active ACETAMINOPHEN-CODEINE #3 300-30 MG ORAL TABLET 1 PO Q 4-6 HR PRN PAIN ACETAMINOPHEN-CODEINE 15096549233 No Longer Active Da raimundo Hu MD Active LORTAB 7.5-500 MG/15ML ORAL ELIXIR 7.5 ml po q 4 hour prn cough HYDROCODONE-ACETAMINOPHEN 74773917221 No Longer Active Carlton Hu MD Active PREDNISONE 20 MG ORAL TABLET 1 po bid 3 days, then 1 po q day 3 days PREDNISONE 07525581126 No Longer Active Carlton Hu MD Active CEFDINIR 300 MG ORAL CAPSULE by mouth twice a day 2011 CEFDINIR 51870002378 No Longer Active Carlton Hu MD Acti ve CEFDINIR 300 MG ORAL CAPSULE by mouth twice a day 2010 CEFDINIR 58989272523 No Longer Active Carlton Hu MD Acti ve CEFDINIR 300 MG ORAL CAPSULE by mouth twice a day 2010 CEFDINIR 59851875858 No Longer Active Carlton Hu MD Acti ve TESSALON PERLES 100 MG ORAL CAPSULE 1 tablet by mouth 3 times daily as needed for cough BENZONATATE 08338389873 No Longer Active Carlton Hu MD Active CEFDINIR 300 MG ORAL CAPSULE by mouth twice a day 2010 CEFDINIR 17563797275 No Longer Active Carlton Hu MD Acti ve ZITHROMAX Z-REYNA 250 MG ORAL TABLET 2 today, then 1 daily for 4 d ays AZITHROMYCIN 60309038496 No Longer Active Hugo Restrepo MD Active TESSALON PERLES 100 MG ORAL CAPSULE 1 tablet by mouth 3 times daily as needed for cough TESSALON PERLES 100 MG ORAL CAPSULE 94570 7 BENZONATATE Inactive PREDNISONE 20 MG ORAL TABLET 1 po bid 3 days, then 1 po q day 3 days PREDNISONE 20 MG ORAL TABLET 097365 PREDNISONE Greer ctive LORTAB 7.5-500 MG/15ML ORAL [...] cough CHERATUSSIN AC 100-10 MG/5ML ORAL SYRUP 087167 GUAIFENESIN-CODEINE Inactive ACETAMINOPHEN-CODEINE #3 300-30 MG ORAL TABLET 1 tablet po q 4-6 hrs prn pain ACETAMINOPHEN-CODEINE #3 300-30 MG ORAL TABLET ACETAMINOPHEN-CODEINE Inactive HYDROCODONE-ACETAMINOPHEN 5-325 MG ORAL TABLET 1 po q 6hr PRN co ugh HYDROCODONE-ACETAMINOPHEN 5-325 MG ORAL TABLET 282283 HYDROCODONE-ACETAMINOPHEN Inactive AVELOX 400 MG ORAL TABLET 1 tab by mouth daily AVELOX 400 MG ORAL TABLET MOXIFLOXACIN HCL Inactive CHERATUSSIN AC 100-10 MG/5ML ORAL SYRUP 1 tsp by mouth every 4 hours as needed for cough CHERATUSSIN AC 100-10 MG/5ML ORAL SYRUP 9 48536 GUAIFENESIN-CODEINE Inactive TERBINAFINE HCL 250 MG ORAL TABLET 1 qDay 07/08 TERBINAFINE HCL 250 MG ORAL TABLET 642358 TERBINAFINE HCL Inactive CHERATUSSIN AC 100-10 MG/5ML ORAL SYRUP 1 tsp by mouth every 4 hours as needed for cough CHERATUSSIN AC 100-10 MG/5ML ORAL SYRUP 9 60307 GUAIFENESIN-CODEINE Inactive ACETAMINOPHEN-CODEINE #3 300-30 MG ORAL TABLET 1 PO Q 4-6 HRS MD N PAIN ACETAMINOPHEN-CODEINE #3 300-30 MG ORAL TABLET ACETAMINOPHEN-CODEINE Inactive CHERATUSSIN AC 100-10 MG/5ML ORAL SYRUP 1 tsp by mouth every 4 hours as needed for cough CHERATUSSIN AC 100-10 MG/5ML ORAL SYRUP 9 38737 GUAIFENESIN-CODEINE Inactive AUGMENTIN 875-125 MG ORAL TABLET 1 tab by mouth twice daily with food AUGMENTIN 875-125 MG ORAL TABLET AMOXICIL MADELINE-POT CLAVULANATE Inactive CHERATUSSIN AC 100-10 MG/5ML ORAL SYRUP take one tsp po Q 6h ours prn cough CHERATUSSIN AC 100-10 MG/5ML ORAL SYRUP 298390 GUAIFENESIN-CODEINE Inactive PROPRANOLOL HCL 60 MG ORAL TABLET 1 PO Q D PROPRANOLOL HCL 60 MG ORAL TABLET 351250 PROPRANOLOL HCL Inactive TOPAMAX 50 MG ORAL TABLET take 1 tab po BID for migraines. 07/02 TOPAMAX 50 MG ORAL TABLET 375916 TOPIRAMATE Inacti ve TOPAMAX 25 MG ORAL TABLET 1 qHS x 1 week, then 1 BID x 1 week, then 1 qAM and 2 qHS x 1 week, then 2 BID (migraine prevention) TOPAMAX 25 MG ORAL TABLET 036961 TOPIRAMATE Inactive LYRICA 75 MG ORAL CAPSULE TAKE 1 CAPSULE BY MOUTH TWICE DAILY LYRICA 75 MG ORAL CAPSULE 094819 PREGABALIN Inactive SYMBICORT 160-4.5 MCG/ACT INHALATION AEROSOL 2 puffs bid wit h rinse after SYMBICORT 160-4.5 MCG/ACT INHALATION AEROSOL BUDESONIDE- FORMOTEROL FUMARATE Inactive PROMETHAZINE-CODEINE 6.25-10 MG/5ML ORAL SYRUP 1 tsp b y mouth every 8 hours prn cough PROMETHAZINE-CODEINE 6.25-10 MG/ 5ML ORAL SYRUP 242769 PROMETHAZINE-CODEINE Inactive CYMBALTA 30 MG ORAL CAPSULE DELAYED RELEASE PARTICLES 1 cap by mouth daily CYMBALTA 30 MG ORAL CAPSULE DELAYED RELE ASE PARTICLES 048952 DULOXETINE HCL Inactive PREMARIN 0.625 MG ORAL TABLET TAKE 1 TAB BY MOUTH DAILY PREMARIN 0.625 MG ORAL TABLET ESTROGENS CONJUGATED Inactive CHERATUSSIN AC 100-10 MG/5ML ORAL SYRUP 1 tsp by mouth every 4 hours as needed for cough CHERATUSSIN AC 100-10 MG/5ML ORAL SYRUP 9 35233 GUAIFENESIN-CODEINE Inactive PROMETHAZINE-CODEINE 6.25-10 MG/5ML ORAL SYRUP 1 tsp b y mouth every 6 hours if needed for cough PROMETHAZINE-CODEINE 6.25-10 MG/5ML ORAL SYRUP 467578 PROMETHAZINE-CODEINE Inactive CHERATUSSIN AC 100-10 MG/5ML ORAL SYRUP 1 tsp by mouth every 4 hours as needed for cough CHERATUSSIN AC 100-10 MG/5ML ORAL SYRUP 9 94710 GUAIFENESIN-CODEINE Inactive FLUTICASONE PROPIONATE 50 MCG/ACT NASAL SUSPENSION 1 t o 2 sprays each nostril daily FLUTICASONE PROPIONATE 50 MCG/AC T NASAL SUSPENSION 4293493 FLUTICASONE PROPIONATE Inactive PREDNISONE 20 MG ORAL TABLET 3 tab PO qd x 2d, 2 tab P O qd x 2d, 1 tab PO qd x 2d, 1/2 tab PO qd x 2d PREDNISONE 20 MG ORAL TAB LET 165618 PREDNISONE Inactive LEVOFLOXACIN 500 MG ORAL TABLET 1 tab PO daily x 10 days LEVOFLOXACIN 500 MG ORAL TABLET 539631 LEVOFLOXACIN Inactive CYCLOBENZAPRINE HCL 10 MG ORAL TABLET 1 tablet by mouth BID prn had pain CYCLOBENZAPRINE HCL 10 MG ORAL TABLET 940601 CYCLOBENZAPRINE HCL Inactive ZOCOR 40 MG ORAL TABLET 1 tab by mouth daily 4 ZOCOR 40 MG ORAL TABLET 630262 SIMVASTATIN Inactive TUSSIONEX PENNKINETIC ER 10-8 MG/5ML [...] FLUTICASONE PROPIO EFE 50 MCG/ACT NASAL SUSPENSION 5302473 FLUTICASONE PROPIONATE Inactive TUSSIONEX PENNKINETIC ER 10-8 MG/5ML ORAL SUSPENSION E XTENDED RELEASE 5 mL PO q 12 hrs PRN cough TUSSIONEX PENNKINETI C ER 10-8 MG/5ML ORAL SUSPENSION EXTENDED RELEASE HYDROCOD POLST-CHLORPHEN POLST I nactive LYRICA 100 MG ORAL CAPSULE Take 1 tab po BID for fibromyalgia 20 11/08/21 LYRICA 100 MG ORAL CAPSULE 790186 PREGABALIN Inact nael TUSSIONEX PENNKINETIC ER 10-8 [...] three days PREDNISONE 20 MG ORAL TABLET 868657 PREDNIS ONE Inactive PROAIR HFA 108 (90 BASE) MCG/ACT INHALATION AEROSOL SO LUTION 2 puffs four times a day as needed PROAIR HFA 108 (90 B ASE) MCG/ACT INHALATION AEROSOL SOLUTION ALBUTEROL SULFATE Inactive PREDNISONE 20 MG ORAL TABLET two tabs by mouth today, then one tab by mouth days two and three and four PREDNISONE 20 MG ORAL TAB LET [id number] PREDNISONE Inactive TUSSIONEX PENNKINETIC ER 10-8 MG/5ML [...] bid 04/20 TOPAMAX 100 MG ORAL TABLET [id number] TOPIRAMATE Inactive CYMBALTA 30 MG ORAL CAPSULE DELAYED RELEASE PARTICLES 1 cap by mouth daily for depression CYMBALTA 30 MG ORAL CAPSULE DELAYED RELEASE PARTICLES [id number] DULOXETINE HCL Inactive TYLENOL WITH CODEINE #3 300-30 MG ORAL TABLET 1-2 po q6hr PRN Pa in TYLENOL WITH CODEINE #3 300-30 MG ORAL TABLET ACETAMINOPHEN-CODEINE Inactive ZITHROMAX Z-REYNA 250 MG ORAL TABLET 2 today, then 1 daily for 4 d ays ZITHROMAX Z-REYNA 250 MG ORAL TABLET 572582 AZITHROMYCIN Inactive CEFDINIR 300 MG ORAL CAPSULE by mouth twice a day 2010 CEFDINIR 300 MG ORAL CAPSULE 059109 CEFDINIR Inactive CEFDINIR 300 MG ORAL CAPSULE by mouth twice a day 2010 CEFDINIR 300 MG ORAL CAPSULE 560048 CEFDINIR Inactive CEFDINIR 300 MG ORAL CAPSULE by mouth twice a day 2010 CEFDINIR 300 MG ORAL CAPSULE 096655 CEFDINIR Inactive CEFDINIR 300 MG ORAL CAPSULE by mouth twice a day 2011 CEFDINIR 300 MG ORAL CAPSULE 722004 CEFDINIR Inactive ZITHROMAX 250 MG ORAL TABLET 2 po today, then 1 po q days 2-5 03/07/07 ZITHROMAX 250 MG ORAL TABLET 587649 AZITHROMYCIN Cohagen ctive CEFDINIR 300 MG ORAL CAPSULE by mouth twice a day 2011 CEFDINIR 300 MG ORAL CAPSULE 20020704 CEFDINIR Inactive PREDNISONE 20 MG ORAL TABLET 2 tabs daily for 3 days, 1 tab daily for 3 days, 1/2 tab daily for 2 days PREDNISONE 20 MG ORAL T [facility] 727691 PREDNISONE Inactive AVELOX 400 MG ORAL TABLET [...] days 11/07 PREDNISONE 20 MG ORAL TABLET 697181 PREDNISONE Inactive LEVAQUIN 500 MG ORAL TABLET take one po QD LEVAQUIN 500 MG ORAL TABLET 614000 LEVOFLOXACIN Inactive AZITHROMYCIN 250 MG ORAL TABLET 2 po qd x 1 day, then 1 po q d x 4 days AZITHROMYCIN 250 MG ORAL TABLET 790040 AZITHROMY GIOVANNI Inactive MEDROL 4 MG ORAL TABLET THERAPY PACK 6 tabs on day 1, 5 tabs on day 2, 4 tabs on day 3, 3 tabs on day 4, 2 tabs on day 5, 1 tab on day 6 2013 MEDROL 4 MG ORAL TABLET THERAPY PACK 335636 METHYLPREDNISOLONE Cohagen ctive CHERATUSSIN AC 100-10 MG/5ML ORAL SYRUP 5ml po q6hr PRN Cough 20 13/04/14 CHERATUSSIN AC 100-10 MG/5ML ORAL SYRUP 428978 GUAIFENE SIN-CODEINE Inactive TRIAMCINOLONE ACETONIDE 0.1 % EXTERNAL CREAM apply three roger es daily prn rash TRIAMCINOLONE ACETONIDE 0.1 % EXTERNAL CREAM 101 4314 TRIAMCINOLONE ACETONIDE Inactive AZITHROMYCIN 250 MG ORAL TABLET 2 po qd x 1 day, then 1 po q d x 4 days AZITHROMYCIN 250 MG ORAL TABLET 434361 AZITHROMY GIOVANNI Inactive MEDROL 4 MG ORAL TABLET THERAPY PACK 6 pills x 1 day, then 5 pills x 1 day then 4 pills x 1 day, then 3 pills x 1 day, then 2 pills x 1 day, then 1 pill x 1 day, then stop MEDROL 4 MG ORAL TABLET THERAPY PACK 321173 METHYLPREDNISOLONE Inactive AMOXICILLIN 500 MG ORAL CAPSULE 1 tab by mouth 3 times daily x 10 days AMOXICILLIN 500 MG ORAL CAPSULE 798411 AMOXICILL IN Inactive AMOXICILLIN 500 MG ORAL CAPSULE 1 tab by mouth 3 times daily x 10 days AMOXICILLIN 500 MG ORAL CAPSULE 408012 AMOXICILL IN Inactive ZITHROMAX 250 MG ORAL TABLET 2 po today, then 1 po q days 2-5 20 12/08/14 ZITHROMAX 250 MG ORAL TABLET 792693 AZITHROMYCIN Cohagen ctive AUGMENTIN 875-125 MG ORAL TABLET 1 po BID x 10 days 20 13/01/20 AUGMENTIN 875-125 MG ORAL TABLET AMOXICILLIN-POT CLAVULANATE Inactive ZITHROMAX Z-REYNA 250 MG ORAL TABLET 2 today, then 1 daily for 4 d ays ZITHROMAX Z-REYNA 250 MG ORAL TABLET 544433 AZITHROMYCIN Inactive ZITHROMAX 250 MG ORAL TABLET 2 po today, then 1 po q days 2-5 20 14/03/21 ZITHROMAX 250 MG ORAL TABLET 986536 AZITHROMYCIN Greer ctive ZITHROMAX Z-REYNA 250 MG ORAL TABLET 2 today, then 1 daily for 4 d ays ZITHROMAX Z-REYNA 250 MG ORAL TABLET 210775 AZITHROMYCIN Inactive CEFDINIR 300 MG ORAL CAPSULE 1 po BID x 10 days 06/21 CEFDINIR 300 MG ORAL CAPSULE 831525 CEFDINIR Inactive ZITHROMAX 250 MG ORAL TABLET 2 po today, then 1 po q days 2-5 20 13/08/10 ZITHROMAX 250 MG ORAL TABLET 385995 AZITHROMYCIN Greer ctive LEVAQUIN 500 MG ORAL TABLET 1 tablet by mouth daily 20 13/09/24 LEVAQUIN 500 MG ORAL TABLET 19971102 LEVOFLOXACIN Inactive SINGULAIR 10 MG ORAL TABLET 1 po qday for allergies 20 14/01/12 SINGULAIR 10 MG ORAL TABLET 20010504 MONTELUKAST SODIUM Inactive AMOXICILLIN 500 MG ORAL CAPSULE 2 po BID x 10 days 201 09/29/08 AMOXICILLIN 500 MG ORAL CAPSULE 998667 AMOXICILLIN Inactive PREDNISONE 20 MG ORAL TABLET 2 tabs daily for 3 days, 1 tab daily for 3 days, 1/2 tab daily for 2 days PREDNISONE 20 MG ORAL T ABLET 535404 PREDNISONE Inactive ZITHROMAX Z-REYNA 250 MG ORAL TABLET 2 today, then 1 daily for 4 d ays ZITHROMAX Z-REYNA 250 MG ORAL TABLET 541968 AZITHROMYCIN Inactive PREDNISONE 20 MG ORAL TABLET 2 tabs daily for 3 days, 1 tab daily for 3 days, 1/2 tab daily for 2 days PREDNISONE 20 MG ORAL T ABLET 720691 PREDNISONE Inactive ZITHROMAX 250 MG ORAL TABLET 2 po today, then 1 po q days 2-5 20 14/09/04 ZITHROMAX 250 MG ORAL TABLET 263564 AZITHROMYCIN Greer ctive AMOXICILLIN 500 MG ORAL CAPSULE 1 cap by mouth three times a day AMOXICILLIN 500 MG ORAL CAPSULE 628966 AMOXICILLIN Inactive TERBINAFINE HCL 250 MG ORAL TABLET 1 qDay for nail fungus 7 TERBINAFINE HCL 250 MG ORAL TABLET 063688 TERBINAFINE HCL Inact nael AUGMENTIN 875-125 MG ORAL TABLET 1 po BID x 10 days 20 16/03/22 AUGMENTIN 875-125 MG ORAL TABLET AMOXICILLIN-POT CLAVULANATE Inactive PREDNISONE 20 MG ORAL TABLET 2 po qd x 5 days PREDNISONE 20 MG ORAL TABLET 576402 PREDNISONE Inactive AZITHROMYCIN 250 MG ORAL TABLET 2 po qd x 1 day, then 1 po q d x 4 days AZITHROMYCIN 250 MG ORAL TABLET 861121 AZITHROMY GIOVANNI Inactive PREDNISONE 50 MG ORAL TABLET Take 50 mg dialy for 6 day s 7 PREDNISONE 50 MG ORAL TABLET 039448 PREDNISONE Inactive AUGMENTIN 875-125 MG ORAL TABLET 1 po BID x 10 days 20 18/04/16 AUGMENTIN 875-125 MG ORAL TABLET AMOXICILLIN-POT CLAVULANATE Inactive DOXYCYCLINE HYCLATE 100 MG ORAL CAPSULE 1 cap by mouth twice latasha ly DOXYCYCLINE HYCLATE 100 MG ORAL CAPSULE 9051146 DOXYCYCL INE HYCLATE Inactive PREDNISONE 20 MG ORAL TABLET Take 2 tabs day 1 and 2 and 1 t ab days 3 and 4 PREDNISONE 20 MG ORAL TABLET 736994 PREDNISONE Inactive AMOXICILLIN 500 MG ORAL CAPSULE 1 cap by mouth twice daily 10/21 AMOXICILLIN 500 MG ORAL CAPSULE 949811 AMOXICILLIN Inactive TRIAMCINOLONE ACETONIDE 0.1 % EXTERNAL OINTMENT Apply to affected areas TID PRN Rash/Itching for up 2 weeks TRIAMCINOLON E ACETONIDE 0.1 % EXTERNAL OINTMENT 9314124 TRIAMCINOLONE ACETONIDE Inactive ACYCLOVIR 800 MG ORAL TABLET 1 po 5 times daily x 7 days ACYCLOVIR 800 MG ORAL TABLET 990208 ACYCLOVIR Inactive Vital Signs Date Name Value [...] weight E&M 138 [lb_av] Weight Measure d Diagnostic Results Date Name Value Unit Range Description Lab Report: Basic Metabolic Panel - Chem istry sodium, serum 139 mmol/L 117-530 4961/10/12 potassium, serum 3.8 mmol/L 3.5-5.2 chloride, serum 102 mmol/L 98-107 carbon dioxide, venous blood 29.4 mmol/L 21.0-32 .0 blood glucose 103 mg/dL 65-95 calcium, serum 8.8 mg/dL 8.5-10.1 urea nitrogen, blood 10 mg/dL 7-18 creatinine, serum 0.97 mg/dL 0.60-1.30 Estimated Glomerular Filtration Rate (calc) 62 (?) mL/min/1.73m2 = OR > 60 mL/min Office Visit: check-up for elmiron - Fernanda [...] negative Encounters Code Encounter Date Provider Facility CPT-14283 Level 3 Est. Patient 14:16:41 CDT David Tin dle [facility] CPT-60628 Level 3 Est. Patient 13:57:55 CDT David Tin dle [facility] CPT-05328 Level 3 Est. Patient 16:08:07 CDT David Tin dle [facility] CPT-39391 Level 3 Est. Patient 16:53:54 CDT J Livan haas MD [facility]-15101 [id number] Vst-Est Level IV 08:41:[address] Carlton Hu MD [facility] CPT-34947 Level 3 Est. Patient 09:46:49 HEALTH POLICY ANALYST David riverae [facility] CPT-47179 [id number] Vst-Est Level III 11:12:16 CDT Yanet Bess DO [facility] CPT-00177 Level 3 Est. Patient 11:34:49 HEALTH POLICY ANALYST Perez Mora MD [facility] CPT-14004 Level 4 Est. Patient 09:51:32 HEALTH POLICY ANALYST Carlton rich MD [facility] CPT-84341 Level 3 Est. Patient 10:26:00 HEALTH POLICY ANALYST Elise stephenson [facility] CPT-60569 Level 3 Est. Patient 13:35:41 HEALTH POLICY ANALYST Carlton rich MD [facility] CPT-29583 Level 3 Est. Patient 10:03:52 HEALTH POLICY ANALYST Carlton rich MD [facility] CPT-98853 Level 3 Est. Patient 12:17:50 CDT Hugo Restrepo MD [facility] CPT-89715 Level 3 Est. Patient 13:42:38 CDT Elise Are ll [facility] CPT-68608 Level 3 Est. Patient 13:23:51 CDT Diya Mariana mango [facility] CPT-77885 Level 3 Est. Patient 14:22:19 HEALTH POLICY ANALYST Diya cobian [facility] CPT-42480 Level 3 Est. Patient 10:11:46 CDT Carlton rich MD [facility] CPT-61931 Level 3 Est. Patient 17:29:43 CDT Elise Are ll [facility] CPT-04225 Level 3 Est. Patient 11:58:06 CDT Elise Are [facility] CPT-84975 Level 4 Est. Patient 14:36:51 CDT Carlton rich MD [facility] CPT-37348 Level 3 Est. Patient 18:16:00 HEALTH POLICY ANALYST Blaine HERNANDEZ [facility] CPT-93766 Level 3 Est. Patient 09:45:49 HEALTH POLICY ANALYST Carlton rich MD [facility] CPT-48938 Level 3 Est. Patient 13:19:20 CDT Carlton rich MD [facility] CPT-27490 Level 3 Est. Patient 13:06:43 CDT Ridge tam DO [facility] CPT-48566 Level 3 Est. Patient 10:03:07 CDT Perez Mora MD [facility] CPT-12710 Level 3 Est. Patient 19:50:35 HEALTH POLICY ANALYST Carlton rich MD [facility] CPT-95268 Level 4 Est. Patient 18:05:01 HEALTH POLICY ANALYST Carlton rich MD [facility] [place]-51508 Level 3 Est. Patient 10:45:55 HEALTH POLICY ANALYST Hugo Restrepo MD [facility] [place]-70846 Level 3 Est. Patient 14:12:[address] [facility]-93331 Level 3 Est. Patient 17:37:24 CDT Carlton rich MD [facility]-55952 Level 3 Est. Patient 16:51:54 CDT Carlton rich MD [facility]-86574 Level 3 Est. Patient 12:18:11 CDT Hugo Restrepo MD [facility] [place]-49983 Level 3 Est. Patient 11:30:25 CDT Marcy crisostomo MD PhD [facility] [place]-10698 Level 3 Est. Patient 12:00:47 HEALTH POLICY ANALYST Carlton rich MD [facility] [place]-13105 Level 3 Est. Patient 16:31:06 HEALTH POLICY ANALYST Carlton rich MD [facility] [place]-72705 Level 3 Est. Patient 16:23:24 HEALTH POLICY ANALYST Ridge tam DO [facility] [place]-84250 Level 3 Est. Patient 12:34:12 CDT Carlton rich MD [facility] [place]-69557 Level 2 Est. Patient 15:43:33 CDT Robi armstrong MD [facility]-81155 Level 4 Est. Patient 14:04:44 CDT [address] rich MD [facility] [place]-58613 Level 3 Est. Patient 05:47:59 CDT Ridge tam [facility]-11282 Level 3 Est. Patient 13:12:53 HEALTH POLICY ANALYST Carlton rich MD [facility] CPT-30830 Level 3 Est. Patient 14:26:53 CDT Hugo [...] CPT-J1100 Decadron 6mg (Dexamethasone) 14:32:13 CDT 2 CPT-96043 Hip bilat min 2V w AP pelvis 13:16:20 CDT 2 CPT-18376 Pelvis only 13:07:33 CDT CPT-22339 Spec Collection and Handling Fee 11:25:12 C DT CPT-82987 Fluzone Quadrivalent Intramuscular Suspe nsion 0.5 ML 14:31:55 CDT CPT-97418 Abx/Therapy Injection 13:28:47 HEALTH POLICY ANALYST CPT-J2930 Solu Medrol 125 mg (Methyl Prednisolone Sodium Succinate) 12:00:47 HEALTH POLICY ANALYST CPT-64334 Venipuncture Draw Fee 11:33:31 CDT CPT-25212 EKG Trac and Interp 11:21:09 CDT CPT-87881 Chest 2V Frontal and Lat 11:21:09 CDT 12/15 CPT-52407 Venipuncture Draw Fee 08:02:34 CDT CPT-09120 Chest 2V Frontal and Lat 05:47:59 CDT 06/05
--- OUTSIDE RECORDS SUMMARY | 2019-10-08 08:50 | XMS REPORT | Clinical Summary ---
Author Author Caitlin, Juliana Martinez Organization [facility] Address Unknown Phone Unavailable Allergies, [...] URI 465.9 Inactive Ridge Bess DO [place] upper respiratory infections of unspecified site Body Mass Index 35.0-35.9 Adult Refinement 2017 Ridge Bess DO Body Mass Index 35.0-35.9, adult BMI 34-34.9 Refinement Cherelle Torres RN Body Mass Index 35.0-35.9, adult BMI 35-35.9 Refinement David Marianneamisha RICEN Body Mass Index 35.0-35.9, adult BMI 34-34.9 Refinement May Vivar MD Body Mass Index 35.0-35.9, adult BMI 35-35.9 Refinement David Marianne HORSE STUD MANAGER Body Mass Index 35.0-35.9, adult BMI 33-33.9 Active David Marianne HORSE STUD MANAGER Body Mass Index 35.0-35.9, adult Upper respiratory [...] nonspecific skin eruption 782.1 Active David Marianne HORSE STUD MANAGER Rash and other nonspecific skin eruption Pharyngitis, acute / sore throat 462 Active 201 12/06/23 David Marianne HORSE STUD MANAGER Acute pharyngitis Shingles 053.9 Active David Marianne HORSE STUD MANAGER Herpes zoster without mention of complication Allergic rhinitis, seasonal 477.0 Active Carlton Hu MD Allergic rhinitis due to pollen IBS (irritable bowel syndrome) 564.1 Active 01/06 Carlton Hu MD Irritable bowel syndrome GERD 530.81 Active Carlton Hu MD Esophageal reflux Cough, non-productive 786.2 Active David Lopes HORSE STUD MANAGER Cough BRONCHITIS ICD-490 Inactive Hugo Restrepo MD [...] tsp PO q6h PRN co ugh GUAIFENESIN-CODEINE [id number] Active David Marianne HORSE STUD MANAGER Active AMOXICILLIN-POT CLAVULANATE 875-125 MG ORAL TABLET 1 pill by mouth twice daily AMOXICILLIN-POT CLAVULANATE 05023806960 Active David Marianne HORSE STUD MANAGER Active DULOXETINE HCL 60 MG ORAL CAPSULE DELAYED RELEASE PART ICLES TAKE 1 CAPSULE BY MOUTH ONCE DAILY FOR PAIN AND MOOD DULOXETINE HCL 002 75296275 Active Carlton Hu MD Active TRAMADOL HCL 50 MG TABS TAKE 1 TABLET BY MOUTH THREE TIMES DAILY WITH EXTRA STRENGTH TYLENOL TRAMADOL HCL 18149452676 Active Carlton Hu MD Active ALPRAZOLAM 0.5 MG TABS TAKE 1 TABLET BY MOUTH ONCE DAILY NEEDED ALPRAZOLAM 48247276068 Active Carlton Hu MD Active GABAPENTIN 100 MG ORAL CAPSULE TAKE 1 CAPSULE BY MOUTH TWICE DAILY FOR FIBROMYALGIA GABAPENTIN 03544449336 Active Carlton Hu MD Active ELMIRON 100MG CAP TAKE 2 CAPSULES BY MOUTH IN THE MORNING AND 1 CAPSULE AT BEDTIME PENTOSAN POLYSULFATE SODIUM 31115501660 Active May Vivar MD Active TOPIRAMATE 100 MG TABS TAKE 1 TABLET BY MOUTH TWICE DAILY 1 TOPIRAMATE 96763256409 Active Carlton Hu MD Active ATORVASTATIN CALCIUM 10 MG ORAL TABLET 1 pill by mouth night ly, for cholesterol ATORVASTATIN CALCIUM 63518962635 Active Columba Parrish Active TRIAMCINOLONE ACETONIDE 0.1 % EXTERNAL CREAM apply bid spari ngly to rash TRIAMCINOLONE ACETONIDE 54466628234 No Longer Active Carlton Hu MD Active TYLENOL WITH CODEINE #3 300-30 MG ORAL TABLET ACETAMINOPHEN-CODEINE 88724797884 No Longer Active Carlton Hu MD Active TYLENOL WITH CODEINE #3 300-30 MG ORAL TABLET 1-2 po q6hr PRN Pa in ACETAMINOPHEN-CODEINE 25701236506 No Longer Active David Lopes AP RN Active ACYCLOVIR 800 MG ORAL TABLET 1 po 5 times daily x 7 days ACYCLOVIR 16627238207 No Longer Active David Marianne HORSE STUD MANAGER Active TOPAMAX 100 MG ORAL TABLET 1 by mouth twice daily TOPIRAMATE 00334768537 Active Carlton Hu MD Active TRIAMCINOLONE ACETONIDE 0.1 % EXTERNAL OINTMENT Apply to affected areas TID PRN Rash/Itching for up 2 weeks TRIAMCINOLONE ACETON KAYLA 89042254102 No Longer Active David Marianne HORSE STUD MANAGER Active AMOXICILLIN 500 MG ORAL CAPSULE 1 cap by mouth twice daily 10/21 AMOXICILLIN 71418081269 No Longer Active David Marianne HORSE STUD MANAGER Active CYMBALTA 30 MG ORAL CAPSULE DELAYED RELEASE PARTICLES 1 cap by mouth daily for depression DULOXETINE HCL 99908339083 No Longer Active Carlton Hu MD Active TUSSIONEX PENNKINETIC ER 10-8 MG/5ML ORAL SUSPENSION E XTENDED RELEASE 5ml po q12hr PRN Cough HYDROCOD POLST-CHLORPHEN POLST 80265295836 Active Carlton Hu MD Active PREDNISONE 20 MG ORAL TABLET Take 2 tabs day 1 and 2 and 1 t ab days 3 and 4 PREDNISONE 43422936954 No Longer Active David Marianne HORSE STUD MANAGER Active DOXYCYCLINE HYCLATE 100 MG ORAL CAPSULE 1 cap by mouth twice latasha ly DOXYCYCLINE HYCLATE 41146491755 No Longer Active David Marianne HORSE STUD MANAGER Active TOPAMAX 100 MG ORAL TABLET Take 1 tablet po bid TOPIRAMATE 37746384925 No Longer Active David Marianne HORSE STUD MANAGER Active TUSSIONEX PENNKINETIC ER 10-8 MG/5ML ORAL SUSPENSION E XTENDED RELEASE 5ml po q12hr PRN Cough HYDROCOD POLST-CHLORPHEN POLST 5 5815206972 No Longer Active David Marianne HORSE STUD MANAGER Active AUGMENTIN 875-125 MG ORAL TABLET 1 po BID x 10 days 18/04/16 AMOXICILLIN-POT CLAVULANATE 45701063566 No Longer Active David Marianne HORSE STUD MANAGER Active PREDNISONE 50 MG ORAL TABLET Take 50 mg dialy for 6 day s 7 PREDNISONE 00489641899 No Longer Active David Marianne HORSE STUD MANAGER Active TUSSIONEX PENNKINETIC ER 10-8 MG/5ML ORAL SUSPENSION E XTENDED RELEASE 5ml po q12hr PRN Cough HYDROCOD POLST-CHLORPHEN POLST 5 0227911058 No Longer Active hCerelle Torres RN Active PREDNISONE 20 MG ORAL TABLET two tabs by mouth today, then one tab by mouth days two and three and four PREDNISONE 33293360605 No Lo nger Active Cherelle Torres RN Active AZITHROMYCIN 250 MG ORAL TABLET 2 po qd x 1 day, then 1 po q d x 4 days AZITHROMYCIN 96640465296 No Longer Active Ridge Bess DO Active PREDNISONE 20 MG ORAL TABLET 2 po qd x 5 days P REDNISONE 81986563875 No Longer Active Perez Mora MD Active PROAIR HFA 108 (90 BASE) MCG/ACT INHALATION AEROSOL SO LUTION 2 puffs four times a day as needed ALBUTEROL SULFATE 70584115770 No Long er Active Becky Cuellar JEFFA Active ASPIRIN 81 MG ORAL TABLET 1 po qd ASPIRIN 02645701384 Active Carlton Hu MD Active PREDNISONE 20 MG ORAL TABLET 1 tab twice daily for 3 d ay, then one daily for three days PREDNISONE 28402291452 No Longer Active Carlton Hu MD Active AUGMENTIN 875-125 MG ORAL TABLET 1 po BID x 10 days 16/03/22 AMOXICILLIN-POT CLAVULANATE 27944503184 No Longer Active Elise Garcia APRN Active TERBINAFINE HCL 250 MG ORAL TABLET 1 qDay for nail fungus 7 TERBINAFINE HCL 31068643740 No Longer Active Carlton Hu MD A ctive AMOXICILLIN 500 MG ORAL CAPSULE 1 cap by mouth three times a day AMOXICILLIN 83865331690 No Longer Active Carlton Hu MD Active ELMIRON 100 MG ORAL CAPSULE 2 tablets in the am and 1 tablet at hs PENTOSAN POLYSULFATE SODIUM 79681572280 No Longer Active Robert jade Hu MD Active MUCINEX D 60-600 MG ORAL TABLET EXTENDED RELEASE 12 HOUR 1 t ab po q am PSEUDOEPHEDRINE-GUAIFENESIN 57246227521 No Longer Act nael Carlton Hu MD Active MUCINEX DM MAXIMUM STRENGTH 60-1200 MG ORAL TABLET EXT ENDED RELEASE 12 HOUR 1 tab po q am DEXTROMETHORPHAN-GUAIFENESIN 80663682301 No Longer Active Carlton uH MD Active TUSSIONEX PENNKINETIC ER 10-8 MG/5ML ORAL SUSPENSION E XTENDED RELEASE 5ml po q12hr PRN Cough HYDROCOD POLST-CHLORPHEN POLST 5 8774035704 No Longer Active Carlton Hu MD Active POTASSIUM CHLORIDE ER 20 MEQ ORAL TABLET EXTENDED RELE ASE Take 1 by mouth 4 times daily for 7 days POTASSIUM CHLORIDE 79144207322 No Longer Active Carlton Hu MD Active ZITHROMAX 250 MG ORAL TABLET 2 po today, then 1 po q days 2-5 20 14/09/04 AZITHROMYCIN 70402774040 No Longer Active Elise Garcia APRN Active TUSSIONEX PENNKINETIC ER 10-8 MG/5ML ORAL SUSPENSION E XTENDED RELEASE 5 ml twice a day as needed for cough HYDROCOD POLST-CHLORPH EN POLST 27983890191 No Longer Active Elise Garcia APRN Active MONTELUKAST SODIUM 10 MG ORAL TABLET 1 po daily for Allergy MONTELUKAST SODIUM 58649885193 Active Carlton Hu MD Ac tive TUSSIONEX PENNKINETIC ER 10-8 MG/5ML ORAL SUSPENSION E XTENDED RELEASE 5ml po q12hr PRN Cough HYDROCOD POLST-CHLORPHEN POLST 5 8802065431 No Longer Active Hugo Restrepo MD Active LYRICA 100 MG ORAL CAPSULE Take 1 tab po BID for fibromyalgia 20 11/08/21 PREGABALIN 94490516605 No Longer Active Elise Garcia APRN A ctive PREDNISONE 20 MG ORAL TABLET 2 tabs daily for 3 days, 1 tab daily for 3 days, 1/2 tab daily for 2 days PREDNISONE 33036237020 No Longer Active Diya De Guzman APRN Active TUSSIONEX PENNKINETIC ER 10-8 MG/5ML ORAL SUSPENSION E XTENDED RELEASE 5 mL PO q 12 hrs PRN cough HYDROCOD POLST-CHLORPHEN POLST 753179 62971 No Longer Active Jillina Gege KHAN Active FLUTICASONE PROPIONATE 50 MCG/ACT NASAL SUSPENSION 2 s prays each nostril daily until bottle is empty FLUTICASONE PROPIONATE 838028331 99 No Longer Active Jillina Gege RICEN Active ASMANEX 60 METERED DOSES 220 MCG/INH INHALATION AEROSO L POWDER BREATH ACTIVATED 1 puff bid with rinse after MOMETASONE FUROATE 1307640 4102 No Longer Active Diya De Guzman APRN Active ZITHROMAX Z-REYNA 250 MG ORAL TABLET 2 today, then 1 daily for 4 d ays AZITHROMYCIN 81524341532 No Longer Active Elise Garcia HORSE STUD MANAGER Active TUSSIONEX PENNKINETIC ER 10-8 MG/5ML ORAL SUSPENSION E XTENDED RELEASE 5ml po q12hr PRN Cough HYDROCOD POLST-CHLORPHEN POLST 5 3452967767 No Longer Active Elise Garcia HORSE STUD MANAGER Active PREDNISONE 20 MG ORAL TABLET 2 tabs daily for 3 days, 1 tab daily for 3 days, 1/2 tab daily for 2 days PREDNISONE 61810364980 No Longer Active Venullina Cesarl HORSE STUD MANAGER Active AMOXICILLIN 500 MG ORAL CAPSULE 2 po BID x 10 days 201 09/29/08 AMOXICILLIN 78334175394 No Longer Active Diya De Guzman APRN Act nael SINGULAIR 10 MG ORAL TABLET 1 po qday for allergies 20 14/01/12 MONTELUKAST SODIUM 43635378959 No Longer Active Carlton Hu MD Active LEVAQUIN 500 MG ORAL TABLET 1 tablet by mouth daily 20 13/09/24 LEVOFLOXACIN 82266308616 No Longer Active Carlton Hu MD Acti ve FLUTICASONE PROPIONATE 50 MCG/ACT NASAL SUSPENSION 2 s prays each nostril daily for 2 weeks, then 1 spray each nostril daily. FLUTICASONE PROPIONATE 82219927672 Active Carlton Hu MD Active ZITHROMAX 250 MG ORAL TABLET 2 po today, then 1 po q days 2-5 20 13/08/10 AZITHROMYCIN 77265040433 No Longer Active Elise Garcia APRN Active CEFDINIR 300 MG ORAL CAPSULE 1 po BID x 10 days CEFDINIR 39610315394 No Longer Active Carlton Hu MD Active ZOCOR 40 MG ORAL TABLET 1 tab by mouth daily SI MVASTATIN 05196040600 No Longer Active Carlton Hu MD Active CYCLOBENZAPRINE HCL 10 MG ORAL TABLET 1 tablet by mouth BID prn had pain CYCLOBENZAPRINE HCL 04247603781 No Longer Active Jayden Hu MD Active LEVOFLOXACIN 500 MG ORAL TABLET 1 tab PO daily x 10 days LEVOFLOXACIN 67505475899 No Longer Active Carlton Hu MD Acti ve PREDNISONE 20 MG ORAL TABLET 3 tab PO qd x 2d, 2 tab P O qd x 2d, 1 tab PO qd x 2d, 1/2 tab PO qd x 2d PREDNISONE 80323202717 No Lo nger Active Carlton Hu MD Active FLUTICASONE PROPIONATE 50 MCG/ACT NASAL SUSPENSION 1 t o 2 sprays each nostril daily FLUTICASONE PROPIONATE 88276365868 No Longer Ac tive Blaine HERNANDEZ Active CHERATUSSIN AC 100-10 MG/5ML ORAL SYRUP 1 tsp by mouth every 4 hours as needed for cough GUAIFENESIN-CODEINE 39437963755 No Longe r Active Blaine HERNANDEZ Active PROMETHAZINE-CODEINE 6.25-10 MG/5ML ORAL SYRUP 1 tsp b y mouth every 6 hours if needed for cough PROMETHAZINE-CODEINE 19781079272 No Longer Active Blaine HERNANDEZ Active CHERATUSSIN AC 100-10 MG/5ML ORAL SYRUP 1 tsp by mouth every 4 hours as needed for cough GUAIFENESIN-CODEINE 05674298610 No Longe r Active Blaine HERNANDEZ Active ZITHROMAX Z-REYNA 250 MG ORAL TABLET 2 today, then 1 daily for 4 d ays AZITHROMYCIN 17658921424 No Longer Active Columba Parrish Act nael ZITHROMAX 250 MG ORAL TABLET 2 po today, then 1 po q days 2-5 20 14/03/21 AZITHROMYCIN 95921537868 No Longer Active Carlton Hu MD Active ZITHROMAX Z-REYNA 250 MG ORAL TABLET 2 today, then 1 daily for 4 d ays AZITHROMYCIN 77458994771 No Longer Active Columba Prarish Act nael AUGMENTIN 875-125 MG ORAL TABLET 1 po BID x 10 days 20 13/01/20 AMOXICILLIN-POT CLAVULANATE 26994305817 No Longer Active Venuriley Daphnebrayan KHAN Active ZITHROMAX 250 MG ORAL TABLET 2 po today, then 1 po q days 2-5 12/08/14 AZITHROMYCIN 02487526749 No Longer Active Carlton Hu MD Active PREMARIN 0.625 MG ORAL TABLET TAKE 1 TAB BY MOUTH DAILY ESTROGENS CONJUGATED 79277315803 No Longer Active Ridge Bess DO A ctive CYMBALTA 30 MG ORAL CAPSULE DELAYED RELEASE PARTICLES 1 cap by mouth daily DULOXETINE HCL 96945827897 No Longer Active Ridge tam DO Active AMOXICILLIN 500 MG ORAL CAPSULE 1 tab by mouth 3 times daily x 10 days AMOXICILLIN 41400902331 No Longer Active Carlton bustamante MD Active AMOXICILLIN 500 MG ORAL CAPSULE 1 tab by mouth 3 times daily x 10 days AMOXICILLIN 32394357026 No Longer Active Carlton bustamante MD Active PROMETHAZINE-CODEINE 6.25-10 MG/5ML ORAL SYRUP 1 tsp b y mouth every 8 hours prn cough PROMETHAZINE-CODEINE 22745045503 No Longer Acti ve Carlton Hu MD Active MEDROL 4 MG ORAL TABLET THERAPY PACK 6 pills x 1 day, then 5 pills x 1 day then 4 pills x 1 day, then 3 pills x 1 day, then 2 pills x 1 day, then 1 pill x 1 day, then stop METHYLPREDNISOLONE 93882988244 No Long er Active Perez Mora MD Active AZITHROMYCIN 250 MG ORAL TABLET 2 po qd x 1 day, then 1 po q d x 4 days AZITHROMYCIN 84612687157 No Longer Active Perez Ambriz MD Active SYMBICORT 160-4.5 MCG/ACT INHALATION AEROSOL 2 puffs bid wit h rinse after BUDESONIDE-FORMOTEROL FUMARATE 43718228398 N o Longer Active Perez Mora MD Active LYRICA 75 MG ORAL CAPSULE TAKE 1 CAPSULE BY MOUTH TWICE DAILY PREGABALIN 00016812317 No Longer Active Carlton Hu MD Acti ve TOPAMAX 25 MG ORAL TABLET 1 qHS x 1 week, then 1 BID x 1 week, then 1 qAM and 2 qHS x 1 week, then 2 BID (migraine prevention) T OPIRAMATE 58759872426 No Longer Active Jerica FUENTES Active TOPAMAX 50 MG ORAL TABLET take 1 tab po BID for migraines. 07/02 TOPIRAMATE 06981192325 No Longer Active Jerica FUENTES Active TRIAMCINOLONE ACETONIDE 0.1 % EXTERNAL CREAM apply three roger es daily prn rash TRIAMCINOLONE ACETONIDE 02073690460 No Longer Active Carlton Hu MD Active PAXIL 40 MG ORAL TABLET take 1 tab po qday for depression 0 PAROXETINE HCL 33747240262 Active Carlton Hu MD Active CHERATUSSIN AC 100-10 MG/5ML ORAL SYRUP 5ml po q6hr PRN Cough 20 13/04/14 GUAIFENESIN-CODEINE 41993035604 No Longer Active Carlton Hu MD Active MEDROL 4 MG ORAL TABLET THERAPY PACK 6 tabs on day 1, 5 tabs on day 2, 4 tabs on day 3, 3 tabs on day 4, 2 tabs on day 5, 1 tab on day 6 2013 METHYLPREDNISOLONE 66916506248 No Longer Active Perez Mora MD Active AZITHROMYCIN 250 MG ORAL TABLET 2 po qd x 1 day, then 1 po q d x 4 days AZITHROMYCIN 42887744781 No Longer Active Perez Ambriz MD Active PROPRANOLOL HCL 60 MG ORAL TABLET 1 PO Q D PROPRANOLOL HCL 38414671303 No Longer Active Perez Mora MD Activ e CHERATUSSIN AC 100-10 MG/5ML ORAL SYRUP take one tsp po Q 6h ours prn cough GUAIFENESIN-CODEINE 42510946620 No Longer Active Zia Mora MD Active AUGMENTIN 875-125 MG ORAL TABLET 1 tab by mouth twice daily with food AMOXICILLIN-POT CLAVULANATE 86200444152 No Longer Act nael Perez Mora MD Active CHERATUSSIN AC 100-10 MG/5ML ORAL SYRUP 1 tsp by mouth every 4 hours as needed for cough GUAIFENESIN-CODEINE 53453907533 No Longe r Active Hugo Restrepo MD Active ACETAMINOPHEN-CODEINE #3 300-30 MG ORAL TABLET 1 PO Q 4-6 HRS NM N PAIN ACETAMINOPHEN-CODEINE 52569445724 No Longer Active Hugo Restrepo MD Active LEVAQUIN 500 MG ORAL TABLET take one po QD LEVO FLOXACIN 68659063684 No Longer Active Griffin HERNANDEZ Active PREDNISONE 20 MG ORAL TABLET Take 3 tabs daily for 3 d ays, 2 tabs daily for 3 days, 1 tab daily for 3 days, 1/2 tab daily for 3 days 11/07 PREDNISONE 28912525175 No Longer Active Carlton Hu MD Acti ve AVELOX 400 MG ORAL TABLET 1 tab by mouth daily MOXIFLOXACIN HCL 87605637059 No Longer Active Carlton Hu MD Active CHERATUSSIN AC 100-10 MG/5ML ORAL SYRUP 1 tsp by mouth every 4 hours as needed for cough GUAIFENESIN-CODEINE 06807820050 No Longe r Active Hugo Restrepo MD Active AVELOX 400 MG ORAL TABLET 1 tab by mouth daily MOXIFLOXACIN HCL 54760080992 No Longer Active Marcy De La Rosa MD PhD Active TERBINAFINE HCL 250 MG ORAL TABLET 1 qDay T ERBINAFINE HCL 55534568402 No Longer Active Marcy De La Rosa MD PhD Active CHERATUSSIN AC 100-10 MG/5ML ORAL SYRUP 1 tsp by mouth every 4 hours as needed for cough GUAIFENESIN-CODEINE 62036791681 No Longe r Active Marcy De La Rosa MD PhD Active AVELOX 400 MG ORAL TABLET 1 tab by mouth daily MOXIFLOXACIN HCL 25905671264 No Longer Active Marcy De La Rosa MD PhD Active HYDROCODONE-ACETAMINOPHEN 5-325 MG ORAL TABLET 1 po q 6hr PRN co ugh HYDROCODONE-ACETAMINOPHEN 51781515508 No Longer Active Marcy De La Rosa MD PhD Active PREDNISONE 20 MG ORAL TABLET 2 tabs daily for 3 days, 1 tab daily for 3 days, 1/2 tab daily for 2 days PREDNISONE 45749508624 No Longer Active Carlton Hu MD Active CEFDINIR 300 MG ORAL CAPSULE by mouth twice a day 2011 CEFDINIR 09463219134 No Longer Active Carlton Hu MD Acti ve HYDROCHLOROTHIAZIDE 25 MG ORAL TABLET 1 TAB PO DAILY HYDROCHLOROTHIAZIDE 98224291818 Active Carlton Hu MD A ctive ACETAMINOPHEN-CODEINE #3 300-30 MG ORAL TABLET 1 tablet po q 4-6 hrs prn pain ACETAMINOPHEN-CODEINE 67362548640 No Longer Active Ridge Bess DO Active ZITHROMAX 250 MG ORAL TABLET 2 po today, then 1 po q days 2-5 20 03/07/07 AZITHROMYCIN 58848770926 No Longer Active Carlton Hu MD Active CHERATUSSIN AC 100-10 MG/5ML ORAL SYRUP take 1 tsp po q4-6 h ours prn cough GUAIFENESIN-CODEINE 70873006092 No Longer Active Jayden uH MD Active ACETAMINOPHEN-CODEINE #3 300-30 MG ORAL TABLET 1 PO Q 4-6 HR PRN PAIN ACETAMINOPHEN-CODEINE 87876232592 No Longer Active Arnol Hu MD Active LORTAB 7.5-500 MG/15ML ORAL ELIXIR 7.5 ml po q 4 hour prn cough HYDROCODONE-ACETAMINOPHEN 85927053285 No Longer Active Carlton Hu MD Active PREDNISONE 20 MG ORAL TABLET 1 po bid 3 days, then 1 po q day 3 days PREDNISONE 30271050837 No Longer Active Carlton Hu MD Active CEFDINIR 300 MG ORAL CAPSULE by mouth twice a day 2011 CEFDINIR 21091461830 No Longer Active Carlton Hu MD Acti ve CEFDINIR 300 MG ORAL CAPSULE by mouth twice a day 2010 CEFDINIR 13151297074 No Longer Active Carlton Hu MD Acti ve CEFDINIR 300 MG ORAL CAPSULE by mouth twice a day 2010 CEFDINIR 91235933298 No Longer Active Carlton Hu MD Acti ve TESSALON PERLES 100 MG ORAL CAPSULE 1 tablet by mouth 3 times daily as needed for cough BENZONATATE 72029421963 No Longer Active Carlton Hu MD Active CEFDINIR 300 MG ORAL CAPSULE by mouth twice a day 2010 CEFDINIR 53143221905 No Longer Active Carlton Hu MD Acti ve ZITHROMAX Z-REYNA 250 MG ORAL TABLET 2 today, then 1 daily for 4 d ays AZITHROMYCIN 81311042583 No Longer Active Hugo Restrepo MD Active TESSALON PERLES 100 MG ORAL CAPSULE 1 tablet by mouth 3 times daily as needed for cough TESSALON PERLES 100 MG ORAL CAPSULE 22776 7 BENZONATATE Inactive PREDNISONE 20 MG ORAL TABLET 1 po bid 3 days, then 1 po q day 3 days PREDNISONE 20 MG ORAL TABLET 469374 PREDNISONE Hunter ctive LORTAB 7.5-500 MG/15ML ORAL ELIXIR 7.5 ml po q 4 hour prn cough LORTAB 7.5-500 MG/15ML ORAL ELIXIR HYDROCODONE-A CETAMINOPHEN Inactive ACETAMINOPHEN-CODEINE #3 300-30 MG ORAL TABLET 1 PO Q 4-6 HR PRN PAIN ACETAMINOPHEN-CODEINE #3 300-30 MG ORAL TABLET 9 18911 ACETAMINOPHEN-CODEINE Inactive CHERATUSSIN AC 100-10 MG/5ML ORAL SYRUP take 1 tsp po q4-6 h ours prn cough CHERATUSSIN AC 100-10 MG/5ML ORAL SYRUP 840415 GUAIFENESIN-CODEINE Inactive ACETAMINOPHEN-CODEINE #3 300-30 MG ORAL TABLET 1 tablet po q 4-6 hrs prn pain ACETAMINOPHEN-CODEINE #3 300-30 MG ORAL TABLET 111692 ACETAMINOPHEN-CODEINE Inactive HYDROCODONE-ACETAMINOPHEN 5-325 MG ORAL TABLET 1 po q 6hr PRN co ugh HYDROCODONE-ACETAMINOPHEN 5-325 MG ORAL TABLET 559841 HYDROCODONE-ACETAMINOPHEN Inactive AVELOX 400 MG ORAL TABLET 1 tab by mouth daily AVELOX 400 MG ORAL TABLET MOXIFLOXACIN HCL Inactive CHERATUSSIN AC 100-10 MG/5ML ORAL SYRUP 1 tsp by mouth every 4 hours as needed for cough CHERATUSSIN AC 100-10 MG/5ML ORAL SYRUP 9 14050 GUAIFENESIN-CODEINE Inactive TERBINAFINE HCL 250 MG ORAL TABLET 1 qDay 07/08 TERBINAFINE HCL 250 MG ORAL TABLET 303395 TERBINAFINE HCL Inactive CHERATUSSIN AC 100-10 MG/5ML ORAL SYRUP 1 tsp by mouth every 4 hours as needed for cough CHERATUSSIN AC 100-10 MG/5ML ORAL SYRUP 9 89555 GUAIFENESIN-CODEINE Inactive ACETAMINOPHEN-CODEINE #3 300-30 MG ORAL TABLET 1 PO Q 4-6 HRS NM N PAIN ACETAMINOPHEN-CODEINE #3 300-30 MG ORAL TABLET 125604 ACETAMINOPHEN-CODEINE Inactive CHERATUSSIN AC 100-10 MG/5ML ORAL SYRUP 1 tsp by mouth every 4 hours as needed for cough CHERATUSSIN AC 100-10 MG/5ML ORAL SYRUP 9 11624 GUAIFENESIN-CODEINE Inactive AUGMENTIN 875-125 MG ORAL TABLET 1 tab by mouth twice daily with food AUGMENTIN 875-125 MG ORAL TABLET AMOXICIL MADELINE-POT CLAVULANATE Inactive CHERATUSSIN AC 100-10 MG/5ML ORAL SYRUP take one tsp po Q 6h ours prn cough CHERATUSSIN AC 100-10 MG/5ML ORAL SYRUP 454784 GUAIFENESIN-CODEINE Inactive PROPRANOLOL HCL 60 MG ORAL TABLET 1 PO Q D PROPRANOLOL HCL 60 MG ORAL TABLET 613309 PROPRANOLOL HCL Inactive TOPAMAX 50 MG ORAL TABLET take 1 tab po BID for migraines. 07/02 TOPAMAX 50 MG ORAL TABLET 577038 TOPIRAMATE Inacti ve TOPAMAX 25 MG ORAL TABLET 1 qHS x 1 week, then 1 BID x 1 week, then 1 qAM and 2 qHS x 1 week, then 2 BID (migraine prevention) TOPAMAX 25 MG ORAL TABLET 558948 TOPIRAMATE Inactive LYRICA 75 MG ORAL CAPSULE TAKE 1 CAPSULE BY MOUTH TWICE DAILY LYRICA 75 MG ORAL CAPSULE 872492 PREGABALIN Inactive SYMBICORT 160-4.5 MCG/ACT INHALATION AEROSOL 2 puffs bid wit h rinse after SYMBICORT 160-4.5 MCG/ACT INHALATION AEROSOL BUDESONIDE- FORMOTEROL FUMARATE Inactive PROMETHAZINE-CODEINE 6.25-10 MG/5ML ORAL SYRUP 1 tsp b y mouth every 8 hours prn cough PROMETHAZINE-CODEINE 6.25-10 MG/ 5ML ORAL SYRUP 992381 PROMETHAZINE-CODEINE Inactive CYMBALTA 30 MG ORAL CAPSULE DELAYED RELEASE PARTICLES 1 cap by mouth daily CYMBALTA 30 MG ORAL CAPSULE DELAYED RELE ASE PARTICLES 107045 DULOXETINE HCL Inactive PREMARIN 0.625 MG ORAL TABLET TAKE 1 TAB BY MOUTH DAILY PREMARIN 0.625 MG ORAL TABLET ESTROGENS CONJUGATED Inactive CHERATUSSIN AC 100-10 MG/5ML ORAL SYRUP 1 tsp by mouth every 4 hours as needed for cough CHERATUSSIN AC 100-10 MG/5ML ORAL SYRUP 9 96689 GUAIFENESIN-CODEINE Inactive PROMETHAZINE-CODEINE 6.25-10 MG/5ML ORAL SYRUP 1 tsp b y mouth every 6 hours if needed for cough PROMETHAZINE-CODEINE 6.25-10 MG/5ML ORAL SYRUP 505017 PROMETHAZINE-CODEINE Inactive CHERATUSSIN AC 100-10 MG/5ML ORAL SYRUP 1 tsp by mouth every 4 hours as needed for cough CHERATUSSIN AC 100-10 MG/5ML ORAL SYRUP 9 78403 GUAIFENESIN-CODEINE Inactive FLUTICASONE PROPIONATE 50 MCG/ACT NASAL SUSPENSION 1 t o 2 sprays each nostril daily FLUTICASONE PROPIONATE 50 MCG/AC T NASAL SUSPENSION 8621940 FLUTICASONE PROPIONATE Inactive PREDNISONE 20 MG ORAL TABLET 3 tab PO qd x 2d, 2 tab P O qd x 2d, 1 tab PO qd x 2d, 1/2 tab PO qd x 2d PREDNISONE 20 MG ORAL TAB LET 721295 PREDNISONE Inactive LEVOFLOXACIN 500 MG ORAL TABLET 1 tab PO daily x 10 days LEVOFLOXACIN 500 MG ORAL TABLET 353102 LEVOFLOXACIN Inactive CYCLOBENZAPRINE HCL 10 MG ORAL TABLET 1 tablet by mouth BID prn had pain CYCLOBENZAPRINE HCL 10 MG ORAL TABLET 514076 CYCLOBENZAPRINE HCL Inactive ZOCOR 40 MG ORAL TABLET 1 tab by mouth daily 4 ZOCOR 40 MG ORAL TABLET 539120 SIMVASTATIN Inactive TUSSIONEX PENNKINETIC ER 10-8 MG/5ML [...] FLUTICASONE PROPIO EFE 50 MCG/ACT NASAL SUSPENSION 9038504 FLUTICASONE PROPIONATE Inactive TUSSIONEX PENNKINETIC ER 10-8 MG/5ML ORAL SUSPENSION E XTENDED RELEASE 5 mL PO q 12 hrs PRN cough TUSSIONEX PENNKINETI C ER 10-8 MG/5ML ORAL SUSPENSION EXTENDED RELEASE HYDROCOD POLST-CHLORPHEN POLST I nactive LYRICA 100 MG ORAL CAPSULE Take 1 tab po BID for fibromyalgia 11/08/21 LYRICA 100 MG ORAL CAPSULE 452407 PREGABALIN Inact nael TUSSIONEX PENNKINETIC ER 10-8 [...] three days PREDNISONE 20 MG ORAL TABLET 473797 PREDNIS ONE Inactive PROAIR HFA 108 (90 BASE) MCG/ACT INHALATION AEROSOL SO LUTION 2 puffs four times a day as needed PROAIR HFA 108 (90 B ASE) MCG/ACT INHALATION AEROSOL SOLUTION ALBUTEROL SULFATE Inactive PREDNISONE 20 MG ORAL TABLET two tabs by mouth today, then one tab by mouth days two and three and four PREDNISONE 20 MG ORAL TAB LET [id number] PREDNISONE Inactive TUSSIONEX PENNKINETIC ER 10-8 MG/5ML [...] bid 04/20 TOPAMAX 100 MG ORAL TABLET 626546 TOPIRAMATE Inactive CYMBALTA 30 MG ORAL CAPSULE DELAYED RELEASE PARTICLES 1 cap by mouth daily for depression CYMBALTA 30 MG ORAL CAPSULE DELAYED RELEASE PARTICLES 114975 DULOXETINE HCL Inactive TYLENOL WITH CODEINE #3 300-30 MG ORAL TABLET 1-2 po q6hr PRN Pa in TYLENOL WITH CODEINE #3 300-30 MG ORAL TABLET 974939 ACETAMINOPHEN-CODEINE Inactive TYLENOL WITH CODEINE #3 300-30 MG ORAL TABLET TYLENOL WITH CODEINE #3 300-30 MG ORAL TABLET 347389 ACETAMINOPHEN-CODEINE Inactive TRIAMCINOLONE ACETONIDE 0.1 % EXTERNAL CREAM apply bid spari ngly to rash TRIAMCINOLONE ACETONIDE 0.1 % EXTERNAL CREAM 101 4314 TRIAMCINOLONE ACETONIDE Inactive ZITHROMAX Z-REYNA 250 MG ORAL TABLET 2 today, then 1 daily for 4 d ays ZITHROMAX Z-REYNA 250 MG ORAL TABLET 004243 AZITHROMYCIN Inactive CEFDINIR 300 MG ORAL CAPSULE by mouth twice a day 2010 CEFDINIR 300 MG ORAL CAPSULE 700657 CEFDINIR Inactive CEFDINIR 300 MG ORAL CAPSULE by mouth twice a day 2010 CEFDINIR 300 MG ORAL CAPSULE 683863 CEFDINIR Inactive CEFDINIR 300 MG ORAL CAPSULE by mouth twice a day 2010 CEFDINIR 300 MG ORAL CAPSULE 446553 CEFDINIR Inactive CEFDINIR 300 MG ORAL CAPSULE by mouth twice a day 2011 CEFDINIR 300 MG ORAL CAPSULE 165528 CEFDINIR Inactive ZITHROMAX 250 MG ORAL TABLET 2 po today, then 1 po q days 2-5 20 03/07/07 ZITHROMAX 250 MG ORAL TABLET 445516 AZITHROMYCIN Greer ctive CEFDINIR 300 MG ORAL CAPSULE by mouth twice a day 2011 CEFDINIR 300 MG ORAL CAPSULE 915896 CEFDINIR Inactive PREDNISONE 20 MG ORAL TABLET 2 tabs daily for 3 days, 1 tab daily for 3 days, 1/2 tab daily for 2 days PREDNISONE 20 MG ORAL T ABLET 806833 PREDNISONE Inactive AVELOX 400 MG ORAL TABLET [...] days 11/07 PREDNISONE 20 MG ORAL TABLET 470027 PREDNISONE Inactive LEVAQUIN 500 MG ORAL TABLET take one po QD LEVAQUIN 500 MG ORAL TABLET 552520 LEVOFLOXACIN Inactive AZITHROMYCIN 250 MG ORAL TABLET 2 po qd x 1 day, then 1 po q d x 4 days AZITHROMYCIN 250 MG ORAL TABLET 074317 AZITHROMY GIOVANNI Inactive MEDROL 4 MG ORAL TABLET THERAPY PACK 6 tabs on day 1, 5 tabs on day 2, 4 tabs on day 3, 3 tabs on day 4, 2 tabs on day 5, 1 tab on day 6 2013 MEDROL 4 MG ORAL TABLET THERAPY PACK 330581 METHYLPREDNISOLONE Hunter ctive CHERATUSSIN AC 100-10 MG/5ML ORAL SYRUP 5ml po q6hr PRN Cough 20 13/04/14 CHERATUSSIN AC 100-10 MG/5ML ORAL SYRUP 962939 GUAIFENE SIN-CODEINE Inactive TRIAMCINOLONE ACETONIDE 0.1 % EXTERNAL CREAM apply three roger es daily prn rash TRIAMCINOLONE ACETONIDE 0.1 % EXTERNAL CREAM 101 4314 TRIAMCINOLONE ACETONIDE Inactive AZITHROMYCIN 250 MG ORAL TABLET 2 po qd x 1 day, then 1 po q d x 4 days AZITHROMYCIN 250 MG ORAL TABLET 195151 AZITHROMY GIOVANNI Inactive MEDROL 4 MG ORAL TABLET THERAPY PACK 6 pills x 1 day, then 5 pills x 1 day then 4 pills x 1 day, then 3 pills x 1 day, then 2 pills x 1 day, then 1 pill x 1 day, then stop MEDROL 4 MG ORAL TABLET THERAPY PACK 410283 METHYLPREDNISOLONE Inactive AMOXICILLIN 500 MG ORAL CAPSULE 1 tab by mouth 3 times daily x 10 days AMOXICILLIN 500 MG ORAL CAPSULE 764967 AMOXICILL IN Inactive AMOXICILLIN 500 MG ORAL CAPSULE 1 tab by mouth 3 times daily x 10 days AMOXICILLIN 500 MG ORAL CAPSULE 389916 AMOXICILL IN Inactive ZITHROMAX 250 MG ORAL TABLET 2 po today, then 1 po q days 2-5 20 12/08/14 ZITHROMAX 250 MG ORAL TABLET 945781 AZITHROMYCIN Hunter ctive AUGMENTIN 875-125 MG ORAL TABLET 1 po BID x 10 days 20 13/01/20 AUGMENTIN 875-125 MG ORAL TABLET AMOXICILLIN-POT CLAVULANATE Inactive ZITHROMAX Z-REYNA 250 MG ORAL TABLET 2 today, then 1 daily for 4 d ays ZITHROMAX Z-REYNA 250 MG ORAL TABLET 196270 AZITHROMYCIN Inactive ZITHROMAX 250 MG ORAL TABLET 2 po today, then 1 po q days 2-5 20 14/03/21 ZITHROMAX 250 MG ORAL TABLET 619649 AZITHROMYCIN Greer ctive ZITHROMAX Z-REYNA 250 MG ORAL TABLET 2 today, then 1 daily for 4 d ays ZITHROMAX Z-REYNA 250 MG ORAL TABLET 634687 AZITHROMYCIN Inactive CEFDINIR 300 MG ORAL CAPSULE 1 po BID x 10 days 06/21 CEFDINIR 300 MG ORAL CAPSULE 20020704 CEFDINIR Inactive ZITHROMAX 250 MG ORAL TABLET 2 po today, then 1 po q days 2-5 20 13/08/10 ZITHROMAX 250 MG ORAL TABLET 780109 AZITHROMYCIN Greer ctive LEVAQUIN 500 MG ORAL TABLET 1 tablet by mouth daily 13/09/24 LEVAQUIN 500 MG ORAL TABLET 19971102 LEVOFLOXACIN Inactive SINGULAIR 10 MG ORAL TABLET 1 po qday for allergies 20 14/01/12 SINGULAIR 10 MG ORAL TABLET 20010504 MONTELUKAST SODIUM Inactive AMOXICILLIN 500 MG ORAL CAPSULE 2 po BID x 10 days 201 09/29/08 AMOXICILLIN 500 MG ORAL CAPSULE 389414 AMOXICILLIN Inactive PREDNISONE 20 MG ORAL TABLET 2 tabs daily for 3 days, 1 tab daily for 3 days, 1/2 tab daily for 2 days PREDNISONE 20 MG ORAL T ABLET 651391 PREDNISONE Inactive ZITHROMAX Z-REYNA 250 MG ORAL TABLET 2 today, then 1 daily for 4 d ays ZITHROMAX Z-REYNA 250 MG ORAL TABLET 762675 AZITHROMYCIN Inactive PREDNISONE 20 MG ORAL TABLET 2 tabs daily for 3 days, 1 tab daily for 3 days, 1/2 tab daily for 2 days PREDNISONE 20 MG ORAL T ABLET 792904 PREDNISONE Inactive ZITHROMAX 250 MG ORAL TABLET 2 po today, then 1 po q days 2-5 20 14/09/04 ZITHROMAX 250 MG ORAL TABLET 741710 AZITHROMYCIN Greer ctive AMOXICILLIN 500 MG ORAL CAPSULE 1 cap by mouth three times a day AMOXICILLIN 500 MG ORAL CAPSULE 620751 AMOXICILLIN Inactive TERBINAFINE HCL 250 MG ORAL TABLET 1 qDay for nail fungus 7 TERBINAFINE HCL 250 MG ORAL TABLET 464667 TERBINAFINE HCL Inact nael AUGMENTIN 875-125 MG ORAL TABLET 1 po BID x 10 days 20 16/03/22 AUGMENTIN 875-125 MG ORAL TABLET AMOXICILLIN-POT CLAVULANATE Inactive PREDNISONE 20 MG ORAL TABLET 2 po qd x 5 days PREDNISONE 20 MG ORAL TABLET 478060 PREDNISONE Inactive AZITHROMYCIN 250 MG ORAL TABLET 2 po qd x 1 day, then 1 po q d x 4 days AZITHROMYCIN 250 MG ORAL TABLET 533279 AZITHROMY GIOVANNI Inactive PREDNISONE 50 MG ORAL TABLET Take 50 mg dialy for 6 day s 7 PREDNISONE 50 MG ORAL TABLET 851821 PREDNISONE Inactive AUGMENTIN 875-125 MG ORAL TABLET 1 po BID x 10 days 20 18/04/16 AUGMENTIN 875-125 MG ORAL TABLET AMOXICILLIN-POT CLAVULANATE Inactive DOXYCYCLINE HYCLATE 100 MG ORAL CAPSULE 1 cap by mouth twice latasha ly DOXYCYCLINE HYCLATE 100 MG ORAL CAPSULE 6137161 DOXYCYCL INE HYCLATE Inactive PREDNISONE 20 MG ORAL TABLET Take 2 tabs day 1 and 2 and 1 t ab days 3 and 4 PREDNISONE 20 MG ORAL TABLET 661929 PREDNISONE Inactive AMOXICILLIN 500 MG ORAL CAPSULE 1 cap by mouth twice daily 10/21 AMOXICILLIN 500 MG ORAL CAPSULE 288363 AMOXICILLIN Inactive TRIAMCINOLONE ACETONIDE 0.1 % EXTERNAL OINTMENT Apply to affected areas TID PRN Rash/Itching for up 2 weeks TRIAMCINOLON E ACETONIDE 0.1 % EXTERNAL OINTMENT 4997398 TRIAMCINOLONE ACETONIDE Inactive ACYCLOVIR 800 MG ORAL TABLET 1 po 5 times daily x 7 days ACYCLOVIR 800 MG ORAL TABLET 116415 ACYCLOVIR Inactive Vital Signs Date Name Value [...] Panel - Chemistry sodium, serum 137 mmol/L 364-728 6850/10/08 carbon dioxide, venous blood 29.9 mmol/L 21.0-32 [...] 0.50 mg/dL 0.00-1.00 cholesterol, serum 324 mg/dL 395-873 2240/10/08 triglyceride, serum, fasting 130 mg/dL 30-200 HDL [...] negative Encounters Code Encounter Date Provider Facility CPT-83476 Level 3 Est. Patient 14:41:20 COOLER WORKER David lion [facility] CPT-54930 [id number] Vst-Est Level IV 09:06:31 C ESAU Hu MD [facility] CPT-87016 Level 3 Est. Patient 14:16:41 CDT David lion [facility] CPT-63360 Level 3 Est. Patient 13:57:55 CDT David lion [facility] CPT-33469 Level 3 Est. Patient 16:08:07 CDT David riverae [facility] CPT-57633 Level 3 Est. Patient 16:53:54 CDT May haas MD [facility] CPT-86736 [id number] Vst-Est Level IV 08:41:[address] Carlton Hu MD [facility] CPT-00834 Level 3 Est. Patient 09:46:49 COOLER WORKER David lion [facility] CPT-96388 [id number] Vst-Est Level III 11:12:16 CDT Yanet Bess DO [facility] CPT-90354 Level 3 Est. Patient 11:34:49 COOLER WORKER Perez Mora MD [facility] CPT-88036 Level 4 Est. Patient 09:51:32 COOLER WORKER Carlton rich MD [facility] CPT-47965 Level 3 Est. Patient 10:26:00 COOLER WORKER Elise stephenson [facility] CPT-61088 Level 3 Est. Patient 13:35:41 COOLER WORKER Carlton rich MD [facility] CPT-98175 Level 3 Est. Patient 10:03:52 COOLER WORKER Carlton rich MD [facility] CPT-37415 Level 3 Est. Patient 12:17:50 CDT Hugo Restrepo MD [facility] CPT-48884 Level 3 Est. Patient 13:42:38 CDT Elise stephenson [facility] CPT-26398 Level 3 Est. Patient 13:23:51 CDT Diya cobian [facility] CPT-87330 Level 3 Est. Patient 14:22:19 COOLER WORKER Diya cobian [facility] CPT-41163 Level 3 Est. Patient 10:11:46 CDT Carlton rich MD [facility] CPT-32549 Level 3 Est. Patient 17:29:43 CDT Elise Are ll HORSE STUD MANAGER [facility] CPT-43562 Level 3 Est. Patient 11:58:06 CDT Elise Are ll HORSE STUD MANAGER [facility] CPT-63092 Level 4 Est. Patient 14:36:51 CDT Carlton rich MD [facility] CPT-74665 Level 3 Est. Patient 18:16:00 COOLER WORKER Blaine Freeman [facility] CPT-31174 Level 3 Est. Patient 09:45:49 COOLER WORKER Carlton rich MD [facility] CPT-71586 Level 3 Est. Patient 13:19:20 CDT Carlton rich MD [facility] CPT-16963 Level 3 Est. Patient 13:06:43 CDT Ridge tam DO [facility] CPT-53183 Level 3 Est. Patient 10:03:07 CDT Perez Mora MD [facility] CPT-71573 Level 3 Est. Patient 19:50:35 COOLER WORKER Carlton rich MD [facility] CPT-09247 Level 4 Est. Patient 18:05:01 COOLER WORKER Carlton rich MD [facility] CPT-74872 Level 3 Est. Patient 10:45:55 COOLER WORKER Hugo Restrepo MD [facility] CPT-80242 Level 3 Est. Patient 14:12:49 CDT Griffin lincoln [facility] CPT-59135 Level 3 Est. Patient 17:37:24 CDT Carlton rich MD [facility]-39482 Level 3 Est. Patient 16:51:54 CDT Carlton rich MD [facility] CPT-59161 Level 3 Est. Patient 12:18:11 CDT Hugo Restrepo MD [facility] CPT-58739 Level 3 Est. Patient 11:30:25 CDT Marcy crisostomo MD PhD [facility] CPT-17976 Level 3 Est. Patient 12:00:47 COOLER WORKER Carlton rich MD [facility] CPT-03923 Level 3 Est. Patient 16:31:06 COOLER WORKER Carlton rich MD [facility] CPT-63162 Level 3 Est. Patient 16:23:24 COOLER WORKER Ridge tam [facility] CPT-20581 Level 3 Est. Patient 12:34:12 CDT Carlton rich MD [facility] CPT-44788 Level 2 Est. Patient 15:43:33 CDT Robi armstrong MD [facility] CPT-67485 Level 4 Est. Patient 14:04:44 CDT Carlton rich MD [facility] CPT-84681 Level 3 Est. Patient 05:47:59 CDT Ridge tam [facility] CPT-12024 Level 3 Est. Patient 13:12:53 COOLER WORKER Carlton rich MD [facility] CPT-22301 Level 3 Est. Patient 14:26:53 CDT Hugo Restrepo MD [facility] Procedures Code Procedure Name Date Entry Date Standard Desc ription CPT-RI4877A (4274F 2P) Patient Reason Influenza immu nization not administered 14:13:39 COOLER WORKER CPT-80720 Venipuncture Draw Fee 15:53:34 CDT CPT-000 Give Appropriate Flu Vaccine 14:14:31 CDT 2 CPT-J1040 Depo Medrol 80 mg (Methyl Prednisolone A cetate) 10:42:44 CDT CPT-J1100 Decadron 8mg (Dexamethasone) 10:42:44 CDT 2 CPT-J0696 Rocephin 1gm Inj Solr 14:32:13 CDT CPT-J1020 Depo Medrol 60 mg (Methyl Prednisolone A cetate) 14:32:13 CDT CPT-J1100 Decadron 6mg (Dexamethasone) 14:32:13 CDT 2 CPT-51947 Hip bilat min 2V w AP pelvis 13:16:20 CDT 2 CPT-76963 Pelvis only 13:07:33 CDT CPT-26060 Spec Collection and Handling Fee 11:25:12 C DT CPT-04072 Fluzone Quadrivalent Intramuscular Suspe nsion 0.5 ML 14:31:55 CDT CPT-44119 Abx/Therapy Injection 13:28:47 COOLER WORKER CPT-J2930 Solu Medrol 125 mg (Methyl Prednisolone Sodium Succinate) 12:00:47 COOLER WORKER CPT-56558 Venipuncture Draw Fee 11:33:31 CDT CPT-52937 EKG Trac and Interp 11:21:09 CDT CPT-94234 Chest 2V Frontal and Lat 11:21:09 CDT 12/15 CPT-58264 Venipuncture Draw Fee 08:02:34 CDT CPT-43484 Chest 2V Frontal and Lat 05:47:59 CDT 06/05
--- OUTSIDE RECORDS SUMMARY | 2019-10-08 08:51 | XMS REPORT | Clinical Summary ---
Author Author Caitlin, Juliana Martinez Organization [employer] Address Unknown Phone Unavailable Allergies, Adverse Reactions, Alerts Allergy Name Reaction Description Start Date Severity Status Pr ovider No Known Allergies Jenni valentin LRT Conditions or Problems Problem Name Problem Code [...] thigh Pelvic pain, acute 789.09 Resolved Hugo gilomre MD Abdominal pain, other specified site; multiple [...] URI 465.9 Inactive Ridge Bess DO Ac [place] upper respiratory infections of unspecified site Body Mass Index 35.0-35.9 Adult Refinement 2017 Ridge Bess DO Body Mass Index 35.0-35.9, adult BMI 34-34.9 Refinement Cherelle Torres RN Body Mass Index 35.0-35.9, adult BMI 35-35.9 Refinement David Lopes APRN Body Mass Index 35.0-35.9, adult BMI 34-34.9 [...] unspecified Obesity Class II (BMI 35-39.9) Active David Lopes APRN Obesity, unspecified Hypertension, systolic 401.9 Active Carlton bustamante MD Unspecified essential hypertension Interstitial Cystitis 595.1 Active May lorenz MD Chronic interstitial cystitis Rash and other nonspecific skin eruption 782.1 Active David Lopes APRN Rash and other nonspecific skin eruption Pharyngitis, acute / sore throat 462 Active 201 12/06/23 David Lopes APRN Acute pharyngitis Shingles 053.9 Active Davidjerel Lopes APRN Herpes zoster without mention of complication BRONCHITIS [...] MG ORAL TABLET 1-2 po q6hr PRN Pain ACETAMINOPHEN-CODEINE 47284646625 Active Carlton Hu MD Active ACYCLOVIR 800 MG ORAL TABLET 1 po 5 times daily x 7 days ACYCLOVIR 96134766322 No Longer Active David Lopes APRN Active TOPAMAX 100 MG ORAL TABLET 1 by mouth twice daily TOPIRAMATE 86702753608 Active Columba Raida Active TRIAMCINOLONE ACETONIDE 0.1 % EXTERNAL OINTMENT Apply to affected areas TID PRN Rash/Itching for up 2 weeks TRIAMCINOLONE ACETON KAYLA 97040095588 No Longer Active David Lopes APRN Active AMOXICILLIN 500 MG ORAL CAPSULE 1 cap by mouth twice daily 10/21 AMOXICILLIN 44764406870 No Longer Active David Lopes APRN Active ELMIRON 100 MG ORAL CAPSULE 2 capsules in the morning and 1 capsule at night PENTOSAN POLYSULFATE SODIUM 61616008052 Active 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 CYMBALTA 30 MG ORAL CAPSULE DELAYED RELEASE PARTICLES 1 cap by mouth daily for depression DULOXETINE HCL 16176534312 No Longer Active Carlton Hu MD Active CYMBALTA 60 MG ORAL CAPSULE DELAYED RELEASE PARTICLES 1 cap by mouth daily for mood and pain DULOXETINE HCL 27405977870 Active Carlton Hu MD Active TUSSIONEX PENNKINETIC ER 10-8 MG/5ML ORAL SUSPENSION E XTENDED RELEASE 5ml po q12hr PRN Cough HYDROCOD POLST-CHLORPHEN POLST 63175892772 Active David Lopes APRN Active PREDNISONE 20 MG ORAL TABLET Take 2 tabs day 1 and 2 and 1 t ab days 3 and 4 PREDNISONE 10740042415 No Longer Active David Marianneamisha RICEN Active DOXYCYCLINE HYCLATE 100 MG ORAL CAPSULE 1 cap by mouth twice latasha ly DOXYCYCLINE HYCLATE 28562562223 No Longer Active David Marianne SOLUTIONS CONSULTANT Active TOPAMAX 100 MG ORAL TABLET Take 1 tablet po bid TOPIRAMATE 23549398735 No Longer Active David Marianne SOLUTIONS CONSULTANT Active TUSSIONEX PENNKINETIC ER 10-8 MG/5ML ORAL SUSPENSION E XTENDED RELEASE 5ml po q12hr PRN Cough HYDROCOD POLST-CHLORPHEN POLST 5 7278330165 No Longer Active David Marianne SOLUTIONS CONSULTANT Active AUGMENTIN 875-125 MG ORAL TABLET 1 po BID x 10 days 18/04/16 AMOXICILLIN-POT CLAVULANATE 77939964848 No Longer Active David Marianne [employer] CONSULTANT Active PREDNISONE 50 MG ORAL TABLET Take 50 mg dialy for 6 day s 7 PREDNISONE 32618368003 No Longer Active David Marianne [employer]UTIONS CONSULTANT Active TUSSIONEX PENNKINETIC ER 10-8 MG/5ML ORAL SUSPENSION E XTENDED RELEASE 5ml po q12hr PRN Cough HYDROCOD POLST-CHLORPHEN POLST 5 9963699059 No Longer Active Cherelle Torres RN Active PREDNISONE 20 MG ORAL TABLET two tabs by mouth today, then one tab by mouth days two and three and four PREDNISONE 97719387923 No Lo nger Active Cherelle Torres RN Active AZITHROMYCIN 250 MG ORAL TABLET 2 po qd x 1 day, then 1 po q d x 4 days AZITHROMYCIN 58683240315 No Longer Active Ridge Bess DO Active PREDNISONE 20 MG ORAL TABLET 2 po qd x 5 days P REDNISONE 77301289790 No Longer Active Perez Mora MD Active PROAIR HFA 108 (90 BASE) MCG/ACT INHALATION AEROSOL SO LUTION 2 puffs four times a day as needed ALBUTEROL SULFATE 46529374169 No Long er Active Becky AGUILARA Active ASPIRIN 81 MG ORAL TABLET 1 po qd ASPIRIN 73438485256 Active Carlton Hu MD Active PREDNISONE 20 MG ORAL TABLET 1 tab twice daily for 3 d ay, then one daily for three days PREDNISONE 72326915651 No Longer Active Carlton Hu MD Active AUGMENTIN 875-125 MG ORAL TABLET 1 po BID x 10 days 16/03/22 AMOXICILLIN-POT CLAVULANATE 90529924314 No Longer Active Elise Garcia [employer]UTIONS CONSULTANT Active TERBINAFINE HCL 250 MG ORAL TABLET 1 qDay for nail fungus 7 TERBINAFINE HCL 92080127317 No Longer Active Carlton Hu MD A ctive AMOXICILLIN 500 MG ORAL CAPSULE 1 cap by mouth three times a day AMOXICILLIN 26261192362 No Longer Active Carlton Hu MD Active ELMIRON 100 MG ORAL CAPSULE 2 tablets in the am and 1 tablet at hs PENTOSAN POLYSULFATE SODIUM 75698004465 No Longer Active Robert jade Hu MD Active MUCINEX D 60-600 MG ORAL TABLET EXTENDED RELEASE 12 HOUR 1 t ab po q am PSEUDOEPHEDRINE-GUAIFENESIN 42322784431 No Longer Act nael Carlton Hu MD Active MUCINEX DM MAXIMUM STRENGTH 60-1200 MG ORAL TABLET EXT ENDED RELEASE 12 HOUR 1 tab po q am DEXTROMETHORPHAN-GUAIFENESIN 47631683377 No Longer Active Carlton Hu MD Active TUSSIONEX PENNKINETIC ER 10-8 MG/5ML ORAL SUSPENSION E XTENDED RELEASE 5ml po q12hr PRN Cough HYDROCOD POLST-CHLORPHEN POLST 5 1826331016 No Longer Active Carlton Hu MD Active POTASSIUM CHLORIDE ER 20 MEQ ORAL TABLET EXTENDED RELE ASE Take 1 by mouth 4 times daily for 7 days POTASSIUM CHLORIDE 18771910204 No Longer Active Carlton Hu MD Active ZITHROMAX 250 MG ORAL TABLET 2 po today, then 1 po q days 2-5 20 14/09/04 AZITHROMYCIN 85285249703 No Longer Active Elise Areseema [employer]UT[employer] CONSULTANT Active TUSSIONEX PENNKINETIC ER 10-8 MG/5ML ORAL SUSPENSION E XTENDED RELEASE 5 ml twice a day as needed for cough HYDROCOD POLST-CHLORPH EN POLST 40292265089 No Longer Active Elise Garcia APRN Active MONTELUKAST SODIUM 10 MG ORAL TABLET 1 po daily for Allergy MONTELUKAST SODIUM 12776515906 Active Carlton Hu MD Ac tive TUSSIONEX PENNKINETIC ER 10-8 MG/5ML ORAL SUSPENSION E XTENDED RELEASE 5ml po q12hr PRN Cough HYDROCOD POLST-CHLORPHEN POLST 5 5802815809 No Longer Active Hugo Restrepo MD Active GABAPENTIN 100 MG ORAL CAPSULE 1 po BID for fibromyalgia GABAPENTIN 21993915974 Active ALFREDO Holly Active LYRICA 100 MG ORAL CAPSULE Take 1 tab po BID for fibromyalgia 20 11/08/21 PREGABALIN 69133876656 No Longer Active Elise Garcia APRN A ctive PREDNISONE 20 MG ORAL TABLET 2 tabs daily for 3 days, 1 tab daily for 3 days, 1/2 tab daily for 2 days PREDNISONE 75450261916 No Longer Active Astridina Gege KHAN Active TUSSIONEX PENNKINETIC ER 10-8 MG/5ML ORAL SUSPENSION E XTENDED RELEASE 5 mL PO q 12 hrs PRN cough HYDROCOD POLST-CHLORPHEN POLST 511966 14580 No Longer Active Jillina Frazell SOLUTIONS CONSULTANT Active FLUTICASONE PROPIONATE 50 MCG/ACT NASAL SUSPENSION 2 s prays each nostril daily until bottle is empty FLUTICASONE PROPIONATE 657950556 99 No Longer Active Jillina Frazell SOLUTIONS CONSULTANT Active ASMANEX 60 METERED DOSES 220 MCG/INH INHALATION AEROSO L POWDER BREATH ACTIVATED 1 puff bid with rinse after MOMETASONE FUROATE 7926961 4102 No Longer Active Jillina Frazell SOLUTIONS CONSULTANT Active ZITHROMAX Z-REYNA 250 MG ORAL TABLET 2 today, then 1 daily for 4 d ays AZITHROMYCIN 77455919017 No Longer Active Elise Garcia APRN Active TUSSIONEX PENNKINETIC ER 10-8 MG/5ML ORAL SUSPENSION E XTENDED RELEASE 5ml po q12hr PRN Cough HYDROCOD POLST-CHLORPHEN POLST 5 7697069726 No Longer Active Elise Garcia APRN Active PREDNISONE 20 MG ORAL TABLET 2 tabs daily for 3 days, 1 tab daily for 3 days, 1/2 tab daily for 2 days PREDNISONE 52025515021 No Longer Active Diya De Guzman APRN Active AMOXICILLIN 500 MG ORAL CAPSULE 2 po BID x 10 days 201 09/29/08 AMOXICILLIN 82389346024 No Longer Active Diya De Guzman APRN Act nael SINGULAIR 10 MG ORAL TABLET 1 po qday for allergies 20 14/01/12 MONTELUKAST SODIUM 80684121796 No Longer Active Carlton Hu MD Active LEVAQUIN 500 MG ORAL TABLET 1 tablet by mouth daily 20 13/09/24 LEVOFLOXACIN 38849841428 No Longer Active Carlton Hu MD Acti ve FLUTICASONE PROPIONATE 50 MCG/ACT NASAL SUSPENSION 2 s prays each nostril daily for 2 weeks, then 1 spray each nostril daily. FLUTICASONE PROPIONATE 80369472943 Active Carlton Hu MD Active ZITHROMAX 250 MG ORAL TABLET 2 po today, then 1 po q days 2-5 20 13/08/10 AZITHROMYCIN 07526414276 No Longer Active Elise Garcia APRN Active XANAX 0.5 MG ORAL TABLET one tablet by mouth daily prn anxiety 2015 ALPRAZOLAM 80058634838 Active ALFREDO Holly Active CEFDINIR 300 MG ORAL CAPSULE 1 po BID x 10 days CEFDINIR 62664569518 No Longer Active Carlton Hu MD Active ZOCOR 40 MG ORAL TABLET 1 tab by mouth daily SI MVASTATIN 41280511781 No Longer Active Carlton Hu MD Active CYCLOBENZAPRINE HCL 10 MG ORAL TABLET 1 tablet by mouth BID prn had pain CYCLOBENZAPRINE HCL 69396877017 No Longer Active Jayden Hu MD Active LEVOFLOXACIN 500 MG ORAL TABLET 1 tab PO daily x 10 days LEVOFLOXACIN 02737872111 No Longer Active Carlton Hu MD Acti ve PREDNISONE 20 MG ORAL TABLET 3 tab PO qd x 2d, 2 tab P O qd x 2d, 1 tab PO qd x 2d, 1/2 tab PO qd x 2d PREDNISONE 34616190381 No Lo nger Active Carlton Hu MD Active FLUTICASONE PROPIONATE 50 MCG/ACT NASAL SUSPENSION 1 t o 2 sprays each nostril daily FLUTICASONE PROPIONATE 99199479915 No Longer Ac tive Blaine HERNANDEZ Active CHERATUSSIN AC 100-10 MG/5ML ORAL SYRUP 1 tsp by mouth every 4 hours as needed for cough GUAIFENESIN-CODEINE 48923822787 No Longe r Active Blaine HERNANDEZ Active PROMETHAZINE-CODEINE 6.25-10 MG/5ML ORAL SYRUP 1 tsp b y mouth every 6 hours if needed for cough PROMETHAZINE-CODEINE 62422180093 No Longer Active lBaine HERNANDEZ Active CHERATUSSIN AC 100-10 MG/5ML ORAL SYRUP 1 tsp by mouth every 4 hours as needed for cough GUAIFENESIN-CODEINE 68195467916 No Longe r Active Blaine HERNANDEZ Active ZITHROMAX Z-REYNA 250 MG ORAL TABLET 2 today, then 1 daily for 4 d ays AZITHROMYCIN 90987709983 No Longer Active Columba Adhikari nael ZITHROMAX 250 MG ORAL TABLET 2 po today, then 1 po q days 2-5 20 14/03/21 AZITHROMYCIN 44202379270 No Longer Active Carlton Hu MD Active ZITHROMAX Z-REYNA 250 MG ORAL TABLET 2 today, then 1 daily for 4 d ays AZITHROMYCIN 03785190304 No Longer Active Columba Parrish Act nael AUGMENTIN 875-125 MG ORAL TABLET 1 po BID x 10 days 13/01/20 AMOXICILLIN-POT CLAVULANATE 15604576296 No Longer Active Diya Sernabrayan KHAN Active ZITHROMAX 250 MG ORAL TABLET 2 po today, then 1 po q days 2-5 20 12/08/14 AZITHROMYCIN 30931658321 No Longer Active Carlton Hu MD Active TRAMADOL HCL 50 MG ORAL TABLET 1 po tid with ES Tylenol TRAMADOL HCL 99882338610 Active Carlton Hu MD Active PREMARIN 0.625 MG ORAL TABLET TAKE 1 TAB BY MOUTH DAILY ESTROGENS CONJUGATED 77347944817 No Longer Active Ridge Bess DO A ctive CYMBALTA 30 MG ORAL CAPSULE DELAYED RELEASE PARTICLES 1 cap by mouth daily DULOXETINE HCL 78093188883 No Longer Active Ridge tam DO Active AMOXICILLIN 500 MG ORAL CAPSULE 1 tab by mouth 3 times daily x 10 days AMOXICILLIN 49698506133 No Longer Active Carlton bustamante MD Active AMOXICILLIN 500 MG ORAL CAPSULE 1 tab by mouth 3 times daily x 10 days AMOXICILLIN 04173244455 No Longer Active Carlton bustamante MD Active PROMETHAZINE-CODEINE 6.25-10 MG/5ML ORAL SYRUP 1 tsp b y mouth every 8 hours prn cough PROMETHAZINE-CODEINE 51815164592 No Longer Acti ve Carlton Hu MD Active MEDROL 4 MG ORAL TABLET THERAPY PACK 6 pills x 1 day, then 5 pills x 1 day then 4 pills x 1 day, then 3 pills x 1 day, then 2 pills x 1 day, then 1 pill x 1 day, then stop METHYLPREDNISOLONE 29621930013 No Long er Active Perez Mora MD Active AZITHROMYCIN 250 MG ORAL TABLET 2 po qd x 1 day, then 1 po q d x 4 days AZITHROMYCIN 83266148992 No Longer Active Perez Ambriz MD Active SYMBICORT 160-4.5 MCG/ACT INHALATION AEROSOL 2 puffs bid wit h rinse after BUDESONIDE-FORMOTEROL FUMARATE 64599238351 N o Longer Active Perez Mora MD Active LYRICA 75 MG ORAL CAPSULE TAKE 1 CAPSULE BY MOUTH TWICE DAILY PREGABALIN 03816875974 No Longer Active Carlton Hu MD Acti ve TOPAMAX 25 MG ORAL TABLET 1 qHS x 1 week, then 1 BID x 1 week, then 1 qAM and 2 qHS x 1 week, then 2 BID (migraine prevention) T OPIRAMATE 45561911162 No Longer Active Jerica FUENTES Active TOPAMAX 50 MG ORAL TABLET take 1 tab po BID for migraines. 07/02 TOPIRAMATE 33495260930 No Longer Active Jerica FUENTES Active TRIAMCINOLONE ACETONIDE 0.1 % EXTERNAL CREAM apply three roger es daily prn rash TRIAMCINOLONE ACETONIDE 15497811584 No Longer Active Carlton Hu MD Active PAXIL 40 MG ORAL TABLET take 1 tab po qday for depression 0 PAROXETINE HCL 15791116853 Active Carlton Hu MD Active CHERATUSSIN AC 100-10 MG/5ML ORAL SYRUP 5ml po q6hr PRN Cough 20 13/04/14 GUAIFENESIN-CODEINE 65480731884 No Longer Active Carlton Hu MD Active MEDROL 4 MG ORAL TABLET THERAPY PACK 6 tabs on day 1, 5 tabs on day 2, 4 tabs on day 3, 3 tabs on day 4, 2 tabs on day 5, 1 tab on day 6 2013 METHYLPREDNISOLONE 36454902014 No Longer Active Perez oMra MD Active AZITHROMYCIN 250 MG ORAL TABLET 2 po qd x 1 day, then 1 po q d x 4 days AZITHROMYCIN 41905096665 No Longer Active Perez Ambriz MD Active PROPRANOLOL HCL 60 MG ORAL TABLET 1 PO Q D PROPRANOLOL HCL 28547922881 No Longer Active Perez Mora MD Activ e CHERATUSSIN AC 100-10 MG/5ML ORAL SYRUP take one tsp po Q 6h ours prn cough GUAIFENESIN-CODEINE 09013887020 No Longer Active Zia Mora MD Active AUGMENTIN 875-125 MG ORAL TABLET 1 tab by mouth twice daily with food AMOXICILLIN-POT CLAVULANATE 60479392067 No Longer Act nael Perez Mora MD Active CHERATUSSIN AC 100-10 MG/5ML ORAL SYRUP 1 tsp by mouth every 4 hours as needed for cough GUAIFENESIN-CODEINE 68284424969 No Longe r Active Hugo Restrepo MD Active ACETAMINOPHEN-CODEINE #3 300-30 MG ORAL TABLET 1 PO Q 4-6 HRS IL N PAIN ACETAMINOPHEN-CODEINE 78896155365 No Longer Active Hugo Restrepo MD Active LEVAQUIN 500 MG ORAL TABLET take one po QD LEVO FLOXACIN 51156856059 No Longer Active Griffin HERNANDEZ Active PREDNISONE 20 MG ORAL TABLET Take 3 tabs daily for 3 d ays, 2 tabs daily for 3 days, 1 tab daily for 3 days, 1/2 tab daily for 3 days 11/07 PREDNISONE 37022339663 No Longer Active Carlton Hu MD Acti ve AVELOX 400 MG ORAL TABLET 1 tab by mouth daily MOXIFLOXACIN HCL 88363355997 No Longer Active Carlton Hu MD Active CHERATUSSIN AC 100-10 MG/5ML ORAL SYRUP 1 tsp by mouth every 4 hours as needed for cough GUAIFENESIN-CODEINE 45093808788 No Longe r Active Hugo Restrepo MD Active AVELOX 400 MG ORAL TABLET 1 tab by mouth daily MOXIFLOXACIN HCL 52234622755 No Longer Active Marcy De La Rosa MD PhD Active TERBINAFINE HCL 250 MG ORAL TABLET 1 qDay T ERBINAFINE HCL 90185880043 No Longer Active Marcy De La Rosa MD PhD Active CHERATUSSIN AC 100-10 MG/5ML ORAL SYRUP 1 tsp by mouth every 4 hours as needed for cough GUAIFENESIN-CODEINE 59002855774 No Longe r Active Marcy De La Rosa MD PhD Active AVELOX 400 MG ORAL TABLET 1 tab by mouth daily MOXIFLOXACIN HCL 00360946300 No Longer Active Marcy De La Rosa MD PhD Active HYDROCODONE-ACETAMINOPHEN 5-325 MG ORAL TABLET 1 po q 6hr PRN co ugh HYDROCODONE-ACETAMINOPHEN 46039335582 No Longer Active Marcy De La Rosa MD PhD Active PREDNISONE 20 MG ORAL TABLET 2 tabs daily for 3 days, 1 tab daily for 3 days, 1/2 tab daily for 2 days PREDNISONE 08283124605 No Longer Active Carlton Hu MD Active CEFDINIR 300 MG ORAL CAPSULE by mouth twice a day 2011 CEFDINIR 25484272908 No Longer Active Carlton Hu MD Acti ve HYDROCHLOROTHIAZIDE 25 MG ORAL TABLET 1 TAB PO DAILY HYDROCHLOROTHIAZIDE 32174998826 Active Carlton Hu MD A ctive ACETAMINOPHEN-CODEINE #3 300-30 MG ORAL TABLET 1 tablet po q 4-6 hrs prn pain ACETAMINOPHEN-CODEINE 70799577607 No Longer Active Ridge Bess DO Active ZITHROMAX 250 MG ORAL TABLET 2 po today, then 1 po q days 2-5 20 03/07/07 AZITHROMYCIN 78626053679 No Longer Active Carlton Hu MD Active CHERATUSSIN AC 100-10 MG/5ML ORAL SYRUP take 1 tsp po q4-6 h ours prn cough GUAIFENESIN-CODEINE 65902691027 No Longer Active Jayden Hu MD Active ACETAMINOPHEN-CODEINE #3 300-30 MG ORAL TABLET 1 PO Q 4-6 HR PRN PAIN ACETAMINOPHEN-CODEINE 39812740963 No Longer Active Arnol Hu MD Active LORTAB 7.5-500 MG/15ML ORAL ELIXIR 7.5 ml po q 4 hour prn cough HYDROCODONE-ACETAMINOPHEN 97491402755 No Longer Active Carlton Hu MD Active PREDNISONE 20 MG ORAL TABLET 1 po bid 3 days, then 1 po q day 3 days PREDNISONE 73620526206 No Longer Active Carlton Hu MD Active CEFDINIR 300 MG ORAL CAPSULE by mouth twice a day 2011 CEFDINIR 38877200531 No Longer Active Carlton Hu MD Acti ve CEFDINIR 300 MG ORAL CAPSULE by mouth twice a day 2010 CEFDINIR 05098237735 No Longer Active Carlton Hu MD Acti ve CEFDINIR 300 MG ORAL CAPSULE by mouth twice a day 2010 CEFDINIR 10473368715 No Longer Active Carlton Hu MD Acti ve TESSALON PERLES 100 MG ORAL CAPSULE 1 tablet by mouth 3 times daily as needed for cough BENZONATATE 73398845894 No Longer Active Carlton Hu MD Active CEFDINIR 300 MG ORAL CAPSULE by mouth twice a day 2010 CEFDINIR 65930407122 No Longer Active Carlton Hu MD Acti ve ZITHROMAX Z-REYNA 250 MG ORAL TABLET 2 today, then 1 daily for 4 d ays AZITHROMYCIN 70647297323 No Longer Active Hugo Restrepo MD Active TESSALON PERLES 100 MG ORAL CAPSULE 1 tablet by mouth 3 times daily as needed for cough TESSALON PERLES 100 MG ORAL CAPSULE 82478 7 BENZONATATE Inactive PREDNISONE 20 MG ORAL TABLET 1 po bid 3 days, then 1 po q day 3 days PREDNISONE 20 MG ORAL TABLET 508233 PREDNISONE Greer ctive LORTAB 7.5-500 MG/15ML ORAL [...] cough CHERATUSSIN AC 100-10 MG/5ML ORAL SYRUP 196904 GUAIFENESIN-CODEINE Inactive ACETAMINOPHEN-CODEINE #3 300-30 MG ORAL TABLET 1 tablet po q 4-6 hrs prn pain ACETAMINOPHEN-CODEINE #3 300-30 MG ORAL TABLET ACETAMINOPHEN-CODEINE Inactive HYDROCODONE-ACETAMINOPHEN 5-325 MG ORAL TABLET 1 po q 6hr PRN co ugh HYDROCODONE-ACETAMINOPHEN 5-325 MG ORAL TABLET 474912 HYDROCODONE-ACETAMINOPHEN Inactive AVELOX 400 MG ORAL TABLET 1 tab by mouth daily AVELOX 400 MG ORAL TABLET MOXIFLOXACIN HCL Inactive CHERATUSSIN AC 100-10 MG/5ML ORAL SYRUP 1 tsp by mouth every 4 hours as needed for cough CHERATUSSIN AC 100-10 MG/5ML ORAL SYRUP 9 19102 GUAIFENESIN-CODEINE Inactive TERBINAFINE HCL 250 MG ORAL TABLET 1 qDay 07/08 TERBINAFINE HCL 250 MG ORAL TABLET 492802 TERBINAFINE HCL Inactive CHERATUSSIN AC 100-10 MG/5ML ORAL SYRUP 1 tsp by mouth every 4 hours as needed for cough CHERATUSSIN AC 100-10 MG/5ML ORAL SYRUP 9 28088 GUAIFENESIN-CODEINE Inactive ACETAMINOPHEN-CODEINE #3 300-30 MG ORAL TABLET 1 PO Q 4-6 HRS IL N PAIN ACETAMINOPHEN-CODEINE #3 300-30 MG ORAL TABLET ACETAMINOPHEN-CODEINE Inactive CHERATUSSIN AC 100-10 MG/5ML ORAL SYRUP 1 tsp by mouth every 4 hours as needed for cough CHERATUSSIN AC 100-10 MG/5ML ORAL SYRUP 9 25025 GUAIFENESIN-CODEINE Inactive AUGMENTIN 875-125 MG ORAL TABLET 1 tab by mouth twice daily with food AUGMENTIN 875-125 MG ORAL TABLET AMOXICIL MADELINE-POT CLAVULANATE Inactive CHERATUSSIN AC 100-10 MG/5ML ORAL SYRUP take one tsp po Q 6h ours prn cough CHERATUSSIN AC 100-10 MG/5ML ORAL SYRUP 283283 GUAIFENESIN-CODEINE Inactive PROPRANOLOL HCL 60 MG ORAL TABLET 1 PO Q D PROPRANOLOL HCL 60 MG ORAL TABLET 259894 PROPRANOLOL HCL Inactive TOPAMAX 50 MG ORAL TABLET take 1 tab po BID for migraines. 07/02 TOPAMAX 50 MG ORAL TABLET 551231 TOPIRAMATE Inacti ve TOPAMAX 25 MG ORAL TABLET 1 qHS x 1 week, then 1 BID x 1 week, then 1 qAM and 2 qHS x 1 week, then 2 BID (migraine prevention) TOPAMAX 25 MG ORAL TABLET 719249 TOPIRAMATE Inactive LYRICA 75 MG ORAL CAPSULE TAKE 1 CAPSULE BY MOUTH TWICE DAILY LYRICA 75 MG ORAL CAPSULE 401716 PREGABALIN Inactive SYMBICORT 160-4.5 MCG/ACT INHALATION AEROSOL 2 puffs bid wit h rinse after SYMBICORT 160-4.5 MCG/ACT INHALATION AEROSOL BUDESONIDE- FORMOTEROL FUMARATE Inactive PROMETHAZINE-CODEINE 6.25-10 MG/5ML ORAL SYRUP 1 tsp b y mouth every 8 hours prn cough PROMETHAZINE-CODEINE 6.25-10 MG/ 5ML ORAL SYRUP 568741 PROMETHAZINE-CODEINE Inactive CYMBALTA 30 MG ORAL CAPSULE DELAYED RELEASE PARTICLES 1 cap by mouth daily CYMBALTA 30 MG ORAL CAPSULE DELAYED RELE ASE PARTICLES 715431 DULOXETINE HCL Inactive PREMARIN 0.625 MG ORAL TABLET TAKE 1 TAB BY MOUTH DAILY PREMARIN 0.625 MG ORAL TABLET ESTROGENS CONJUGATED Inactive CHERATUSSIN AC 100-10 MG/5ML ORAL SYRUP 1 tsp by mouth every 4 hours as needed for cough CHERATUSSIN AC 100-10 MG/5ML ORAL SYRUP 9 16019 GUAIFENESIN-CODEINE Inactive PROMETHAZINE-CODEINE 6.25-10 MG/5ML ORAL SYRUP 1 tsp b y mouth every 6 hours if needed for cough PROMETHAZINE-CODEINE 6.25-10 MG/5ML ORAL SYRUP 272104 PROMETHAZINE-CODEINE Inactive CHERATUSSIN AC 100-10 MG/5ML ORAL SYRUP 1 tsp by mouth every 4 hours as needed for cough CHERATUSSIN AC 100-10 MG/5ML ORAL SYRUP 9 76754 GUAIFENESIN-CODEINE Inactive FLUTICASONE PROPIONATE 50 MCG/ACT NASAL SUSPENSION 1 t o 2 sprays each nostril daily FLUTICASONE PROPIONATE 50 MCG/AC T NASAL SUSPENSION 2745794 FLUTICASONE PROPIONATE Inactive PREDNISONE 20 MG ORAL TABLET 3 tab PO qd x 2d, 2 tab P O qd x 2d, 1 tab PO qd x 2d, 1/2 tab PO qd x 2d PREDNISONE 20 MG ORAL TAB LET 495956 PREDNISONE Inactive LEVOFLOXACIN 500 MG ORAL TABLET 1 tab PO daily x 10 days LEVOFLOXACIN 500 MG ORAL TABLET 985562 LEVOFLOXACIN Inactive CYCLOBENZAPRINE HCL 10 MG ORAL TABLET 1 tablet by mouth BID prn had pain CYCLOBENZAPRINE HCL 10 MG ORAL TABLET 019583 CYCLOBENZAPRINE HCL Inactive ZOCOR 40 MG ORAL TABLET 1 tab by mouth daily 4 ZOCOR 40 MG ORAL TABLET 961878 SIMVASTATIN Inactive TUSSIONEX PENNKINETIC ER 10-8 MG/5ML [...] FLUTICASONE PROPIO EFE 50 MCG/ACT NASAL SUSPENSION 5676383 FLUTICASONE PROPIONATE Inactive TUSSIONEX PENNKINETIC ER 10-8 MG/5ML ORAL SUSPENSION E XTENDED RELEASE 5 mL PO q 12 hrs PRN cough TUSSIONEX PENNKINETI C ER 10-8 MG/5ML ORAL SUSPENSION EXTENDED RELEASE HYDROCOD POLST-CHLORPHEN POLST I nactive LYRICA 100 MG ORAL CAPSULE Take 1 tab po BID for fibromyalgia 11/08/21 LYRICA 100 MG ORAL CAPSULE 947089 PREGABALIN Inact nael TUSSIONEX PENNKINETIC ER 10-8 [...] three days PREDNISONE 20 MG ORAL TABLET 583363 PREDNIS ONE Inactive PROAIR HFA 108 (90 BASE) MCG/ACT INHALATION AEROSOL SO LUTION 2 puffs four times a day as needed PROAIR HFA 108 (90 B ASE) MCG/ACT INHALATION AEROSOL SOLUTION ALBUTEROL SULFATE Inactive PREDNISONE 20 MG ORAL TABLET two tabs by mouth today, then one tab by mouth days two and three and four PREDNISONE 20 MG ORAL TAB LET 257240 PREDNISONE Inactive TUSSIONEX PENNKINETIC ER 10-8 MG/5ML [...] bid 04/20 TOPAMAX 100 MG ORAL TABLET 924785 TOPIRAMATE Inactive CYMBALTA 30 MG ORAL CAPSULE DELAYED RELEASE PARTICLES 1 cap by mouth daily for depression CYMBALTA 30 MG ORAL CAPSULE DELAYED RELEASE PARTICLES 898875 DULOXETINE HCL Inactive ZITHROMAX Z-REYNA 250 MG ORAL TABLET 2 today, then 1 daily for 4 d ays ZITHROMAX Z-REYNA 250 MG ORAL TABLET 131456 AZITHROMYCIN Inactive CEFDINIR 300 MG ORAL CAPSULE by mouth twice a day 2010 CEFDINIR 300 MG ORAL CAPSULE 753037 CEFDINIR Inactive CEFDINIR 300 MG ORAL CAPSULE by mouth twice a day 2010 CEFDINIR 300 MG ORAL CAPSULE 695855 CEFDINIR Inactive CEFDINIR 300 MG ORAL CAPSULE by mouth twice a day 2010 CEFDINIR 300 MG ORAL CAPSULE 334100 CEFDINIR Inactive CEFDINIR 300 MG ORAL CAPSULE by mouth twice a day 2011 CEFDINIR 300 MG ORAL CAPSULE 147329 CEFDINIR Inactive ZITHROMAX 250 MG ORAL TABLET 2 po today, then 1 po q days 2-5 20 03/07/07 ZITHROMAX 250 MG ORAL TABLET 102689 AZITHROMYCIN Greer ctive CEFDINIR 300 MG ORAL CAPSULE by mouth twice a day 2011 CEFDINIR 300 MG ORAL CAPSULE 669531 CEFDINIR Inactive PREDNISONE 20 MG ORAL TABLET 2 tabs daily for 3 days, 1 tab daily for 3 days, 1/2 tab daily for 2 days PREDNISONE 20 MG ORAL T ABLET [id number] PREDNISONE Inactive AVELOX 400 MG ORAL TABLET [...] days 11/07 PREDNISONE 20 MG ORAL TABLET 652982 PREDNISONE Inactive LEVAQUIN 500 MG ORAL TABLET take one po QD LEVAQUIN 500 MG ORAL TABLET 133113 LEVOFLOXACIN Inactive AZITHROMYCIN 250 MG ORAL TABLET 2 po qd x 1 day, then 1 po q d x 4 days AZITHROMYCIN 250 MG ORAL TABLET 090996 AZITHROMY GIOVANNI Inactive MEDROL 4 MG ORAL TABLET THERAPY PACK 6 tabs on day 1, 5 tabs on day 2, 4 tabs on day 3, 3 tabs on day 4, 2 tabs on day 5, 1 tab on day 6 2013 MEDROL 4 MG ORAL TABLET THERAPY PACK 077602 METHYLPREDNISOLONE [place] [facility] CHERATUSSIN AC 100-10 MG/5ML ORAL SYRUP 5ml po q6hr PRN Cough 20 13/04/14 CHERATUSSIN AC 100-10 MG/5ML ORAL SYRUP 348638 GUAIFENE SIN-CODEINE Inactive TRIAMCINOLONE ACETONIDE 0.1 % EXTERNAL CREAM apply three roger es daily prn rash TRIAMCINOLONE ACETONIDE 0.1 % EXTERNAL CREAM 101 4314 TRIAMCINOLONE ACETONIDE Inactive AZITHROMYCIN 250 MG ORAL TABLET 2 po qd x 1 day, then 1 po q d x 4 days AZITHROMYCIN 250 MG ORAL TABLET 574085 AZITHROMY GIOVANNI Inactive MEDROL 4 MG ORAL TABLET THERAPY PACK 6 pills x 1 day, then 5 pills x 1 day then 4 pills x 1 day, then 3 pills x 1 day, then 2 pills x 1 day, then 1 pill x 1 day, then stop MEDROL 4 MG ORAL TABLET THERAPY PACK 554114 METHYLPREDNISOLONE Inactive AMOXICILLIN 500 MG ORAL CAPSULE 1 tab by mouth 3 times daily x 10 days AMOXICILLIN 500 MG ORAL CAPSULE 401860 AMOXICILL IN Inactive AMOXICILLIN 500 MG ORAL CAPSULE 1 tab by mouth 3 times daily x 10 days AMOXICILLIN 500 MG ORAL CAPSULE 186361 AMOXICILL IN Inactive ZITHROMAX 250 MG ORAL TABLET 2 po today, then 1 po q days 2-5 20 12/08/14 ZITHROMAX 250 MG ORAL TABLET 678596 AZITHROMYCIN [place] [facility] AUGMENTIN 875-125 MG ORAL TABLET 1 po BID x 10 days 20 13/01/20 AUGMENTIN 875-125 MG ORAL TABLET AMOXICILLIN-POT CLAVULANATE Inactive ZITHROMAX Z-REYNA 250 MG ORAL TABLET 2 today, then 1 daily for 4 d ays ZITHROMAX Z-REYNA 250 MG ORAL TABLET 199996 AZITHROMYCIN Inactive ZITHROMAX 250 MG ORAL TABLET 2 po today, then 1 po q days 2-5 20 14/03/21 ZITHROMAX 250 MG ORAL TABLET 837107 AZITHROMYCIN [place] [facility] ZITHROMAX Z-REYNA 250 MG ORAL TABLET 2 today, then 1 daily for 4 d ays ZITHROMAX Z-REYNA 250 MG ORAL TABLET 032292 AZITHROMYCIN Inactive CEFDINIR 300 MG ORAL CAPSULE 1 po BID x 10 days 06/21 CEFDINIR 300 MG ORAL CAPSULE 337565 CEFDINIR Inactive ZITHROMAX 250 MG ORAL TABLET 2 po today, then 1 po q days 2-5 20 13/08/10 ZITHROMAX 250 MG ORAL TABLET 266288 AZITHROMYCIN [place] [facility] LEVAQUIN 500 MG ORAL TABLET 1 tablet by mouth daily 13/09/24 LEVAQUIN 500 MG ORAL TABLET 011845 LEVOFLOXACIN Inactive SINGULAIR 10 MG ORAL TABLET 1 po qday for allergies 20 14/01/12 SINGULAIR 10 MG ORAL TABLET 900910 MONTELUKAST SODIUM Inactive AMOXICILLIN 500 MG ORAL CAPSULE 2 po BID x 10 days 201 09/29/08 AMOXICILLIN 500 MG ORAL CAPSULE 726823 AMOXICILLIN Inactive PREDNISONE 20 MG ORAL TABLET 2 tabs daily for 3 days, 1 tab daily for 3 days, 1/2 tab daily for 2 days PREDNISONE 20 MG ORAL T ABLET 080830 PREDNISONE Inactive ZITHROMAX Z-REYNA 250 MG ORAL TABLET 2 today, then 1 daily for 4 d ays ZITHROMAX Z-REYNA 250 MG ORAL TABLET 128508 AZITHROMYCIN Inactive PREDNISONE 20 MG ORAL TABLET 2 tabs daily for 3 days, 1 tab daily for 3 days, 1/2 tab daily for 2 days PREDNISONE 20 MG ORAL T ABLET 839832 PREDNISONE Inactive ZITHROMAX 250 MG ORAL TABLET 2 po today, then 1 po q days 2-5 20 14/09/04 ZITHROMAX 250 MG ORAL TABLET 391416 AZITHROMYCIN [place] [facility] AMOXICILLIN 500 MG ORAL CAPSULE 1 cap by mouth three times a day AMOXICILLIN 500 MG ORAL CAPSULE 507961 AMOXICILLIN Inactive TERBINAFINE HCL 250 MG ORAL TABLET 1 qDay for nail fungus 7 TERBINAFINE HCL 250 MG ORAL TABLET 917169 TERBINAFINE HCL Inact nael AUGMENTIN 875-125 MG ORAL TABLET 1 po BID x 10 days 16/03/22 AUGMENTIN 875-125 MG ORAL TABLET AMOXICILLIN-POT CLAVULANATE Inactive PREDNISONE 20 MG ORAL TABLET 2 po qd x 5 days PREDNISONE 20 MG ORAL TABLET 121897 PREDNISONE Inactive AZITHROMYCIN 250 MG ORAL TABLET 2 po qd x 1 day, then 1 po q d x 4 days AZITHROMYCIN 250 MG ORAL TABLET 981231 AZITHROMY GIOVANNI Inactive PREDNISONE 50 MG ORAL TABLET Take 50 mg dialy for 6 day s 7 PREDNISONE 50 MG ORAL TABLET 455387 PREDNISONE Inactive AUGMENTIN 875-125 MG ORAL TABLET 1 po BID x 10 days 18/04/16 AUGMENTIN 875-125 MG ORAL TABLET AMOXICILLIN-POT CLAVULANATE Inactive DOXYCYCLINE HYCLATE 100 MG ORAL CAPSULE 1 cap by mouth twice latasha ly DOXYCYCLINE HYCLATE 100 MG ORAL CAPSULE 5148727 DOXYCYCL INE HYCLATE Inactive PREDNISONE 20 MG ORAL TABLET Take 2 tabs day 1 and 2 and 1 t ab days 3 and 4 PREDNISONE 20 MG ORAL TABLET 827337 PREDNISONE Inactive AMOXICILLIN 500 MG ORAL CAPSULE 1 cap by mouth twice daily 10/21 AMOXICILLIN 500 MG ORAL CAPSULE 979638 AMOXICILLIN Inactive TRIAMCINOLONE ACETONIDE 0.1 % EXTERNAL OINTMENT Apply to affected areas TID PRN Rash/Itching for up 2 weeks TRIAMCINOLON E ACETONIDE 0.1 % EXTERNAL OINTMENT 6758905 TRIAMCINOLONE ACETONIDE Inactive ACYCLOVIR 800 MG ORAL TABLET 1 po 5 times daily x 7 days ACYCLOVIR 800 MG ORAL TABLET 728007 ACYCLOVIR Inactive Vital Signs Date Name Value [...] - Chem istry sodium, serum 139 mmol/L 553-712 6599/10/12 potassium, serum 3.8 mmol/L 3.5-5.2 chloride, serum [...] negative Encounters Code Encounter Date Provider Facility CPT-91871 Level 3 Est. Patient 13:57:55 CDT David lion [facility] CPT-56431 Level 3 Est. Patient 16:08:07 CDT David lion [facility] CPT-32083 Level 3 Est. Patient 16:53:54 VINAYT May haas MD [facility] CPT-73807 [id number] Vst-Est Level IV 08:41:[address] Carlton Hu MD [facility] CPT-29441 Level 3 Est. Patient 09:46:49 TEACHER BALLET David lion [facility]-91192 [id number] Vst-Est Level III 11:12:16 CDT Yanet Bess DO [facility] CPT-05607 Level 3 Est. Patient 11:34:49 TEACHER BALLET Perez Mora MD [facility]-70844 Level 4 Est. Patient 09:51:32 TEACHER BALLET Carlton rich MD [facility]-03804 Level 3 Est. Patient 10:26:00 TEACHER BALLET Elise Are [facility]-87206 Level 3 Est. Patient 13:35:41 TEACHER BALLET Carlton rich MD [facility]-79489 Level 3 Est. Patient 10:03:52 TEACHER BALLET Carlton rich MD [facility]-14164 Level 3 Est. Patient 12:17:50 CDT Hugo Restrepo MD [facility]-94260 Level 3 Est. Patient 13:42:38 CDT Elise Are [facility] CPT-46794 Level 3 Est. Patient 13:23:51 CDT Diya cobian [facility]-11754 Level 3 Est. Patient 14:22:19 TEACHER BALLET Diya cobian [facility]-32710 Level 3 Est. Patient 10:11:46 CDT Carlton rich MD [facility]-68823 Level 3 Est. Patient 17:29:43 CDT Elise Are [facility] CPT-57196 Level 3 Est. Patient 11:58:06 CDT Elise Are [facility] CPT-64566 Level 4 Est. Patient 14:36:51 CDT Carlton rich MD [facility] CPT-08630 Level 3 Est. Patient 18:16:00 TEACHER BALLET Blaine Freeman [facility] CPT-82423 Level 3 Est. Patient 09:45:49 TEACHER BALLET Carlton rich MD [facility] CPT-78037 Level 3 Est. Patient 13:19:20 CDT Carlton rich MD [facility]-51749 Level 3 Est. Patient 13:06:43 CDT Ridge tam DO [facility] CPT-15241 Level 3 Est. Patient 10:03:07 CDT Perez Mora MD [facility]-08896 Level 3 Est. Patient 19:50:35 TEACHER BALLET Carlton rich MD [facility] CPT-46278 Level 4 Est. Patient 18:05:01 TEACHER BALLET Carlton rich MD [facility] CPT-03347 Level 3 Est. Patient 10:45:55 TEACHER BALLET Hugo Restrepo MD [facility]-63120 Level 3 Est. Patient 14:12:[address] [facility] CPT-00794 Level 3 Est. Patient 17:37:24 CDT Carlton rich MD [facility] CPT-46914 Level 3 Est. Patient 16:51:54 CDT Carlton rich MD [facility] CPT-54037 Level 3 Est. Patient 12:18:11 CDT Hugo Restrepo MD [facility]-00664 Level 3 Est. Patient 11:30:25 CDT Marcy crisostomo MD PhD [facility]-79804 Level 3 Est. Patient 12:00:47 TEACHER BALLET Carlton rich MD [facility]-49821 Level 3 Est. Patient 16:31:06 TEACHER BALLET Carlton rich MD [facility] CPT-73067 Level 3 Est. Patient 16:23:24 TEACHER BALLET Ridge tam [facility] CPT-43354 Level 3 Est. Patient 12:34:12 CDT Carlton rich MD [facility] CPT-86735 Level 2 Est. Patient 15:43:33 CDT Robi armstrong MD [facility] CPT-57620 Level 4 Est. Patient 14:04:44 CDT Carlton rich MD [facility] CPT-98674 Level 3 Est. Patient 05:47:59 CDT Ridge tam [facility] CPT-23420 Level 3 Est. Patient 13:12:53 TEACHER BALLET Carlton rich MD [facility] CPT-04771 Level 3 Est. Patient 14:26:53 CDT Hugo [...] CPT-J1100 Decadron 6mg (Dexamethasone) 14:32:13 CDT 2 CPT-25096 Hip bilat min 2V w AP pelvis 13:16:20 CDT 2 015/04/27 CPT-52189 Pelvis only 13:07:33 CDT CPT-79046 Spec Collection and Handling Fee 11:25:12 C DT CPT-44554 Fluzone Quadrivalent Intramuscular Suspe nsion 0.5 ML 14:31:55 CDT CPT-13092 Abx/Therapy Injection 13:28:47 TEACHER BALLET CPT-J2930 Solu Medrol 125 mg (Methyl Prednisolone Sodium Succinate) 12:00:47 TEACHER BALLET CPT-67225 Venipuncture Draw Fee 11:33:31 CDT CPT-47723 EKG Trac and Interp 11:21:09 CDT CPT-63397 Chest 2V Frontal and Lat 11:21:09 CDT 12/15 CPT-70902 Venipuncture Draw Fee 08:02:34 CDT CPT-28338 Chest 2V Frontal and Lat 05:47:59 CDT 06/05
--- OUTSIDE RECORDS SUMMARY | 2019-10-08 08:52 | XMS REPORT | Clinical Summary ---
Author Author Caitlin, Juliana Martinez Organization [facility] Address Unknown Phone Unavailable Allergies, Adverse Reactions, [...] URI 465.9 Inactive Ridge Bess DO Ac [place] upper respiratory infections of unspecified site Body [...] Lopes APRN Acute pharyngitis Shingles 053.9 Active David Lopes APRN Herpes zoster without mention of [...] Hugo Restrepo MD Bronchitis-Acute ICD-466.0 Inactive Hugo odminguez MD URI - acute ICD-465.9 Inactive Hugo Restrepo MD Pharyngitis acute ICD-462 Inactive Hugo gore MD Rhinitis, acute ICD-460 Inactive Hugo Ochao MD Sinusitis ICD-473.9 Inactive Hugo Restrepo MD Bronchitis ICD-490 Inactive Hugo Restrepo MD 201 10/02/29 URI ICD-465.9 Inactive Ridge Bess DO Medication List Medication Instructions Start Date Stop Date Generic Name NDC Status Provider Patient Instruction TYLENOL WITH CODEINE #3 300-30 MG ORAL TABLET 1-2 po q6hr PRN Pain ACETAMINOPHEN-CODEINE 12139752964 Active Carlton Hu MD Active ACYCLOVIR 800 MG ORAL TABLET 1 po 5 times daily x 7 days ACYCLOVIR 32982923360 No Longer Active David Lopes APRN Active TOPAMAX 100 MG ORAL TABLET 1 by mouth twice daily TOPIRAMATE 70511962093 Active Columba Raida Active TRIAMCINOLONE ACETONIDE 0.1 % EXTERNAL OINTMENT Apply to affected areas TID PRN Rash/Itching for up 2 weeks TRIAMCINOLONE ACETON KAYLA 01937341421 No Longer Active David Lopes APRN Active AMOXICILLIN 500 MG ORAL CAPSULE 1 cap by mouth twice daily 10/21 AMOXICILLIN 75802820279 No Longer Active David Lopes APRN Active ELMIRON 100 MG ORAL CAPSULE 2 capsules in the morning and 1 capsule at night PENTOSAN POLYSULFATE SODIUM 02571514877 Active Cinthia H art LABEL REMOVER Active CYMBALTA 30 MG ORAL CAPSULE DELAYED RELEASE PARTICLES 1 cap by mouth daily for depression DULOXETINE HCL 28923685094 No Longer Active Carlton Hu MD Active CYMBALTA 60 MG ORAL CAPSULE DELAYED RELEASE PARTICLES 1 cap by mouth daily for mood and pain DULOXETINE HCL 59328913546 Active Carlton Hu MD Active TUSSIONEX PENNKINETIC ER 10-8 MG/5ML ORAL SUSPENSION E XTENDED RELEASE 5ml po q12hr PRN Cough HYDROCOD POLST-CHLORPHEN POLST 70693071017 Active David Lopes APRN Active PREDNISONE 20 MG ORAL TABLET Take 2 tabs day 1 and 2 and 1 t ab days 3 and 4 PREDNISONE 94288560729 No Longer Active David Marianneamisha RICEN Active DOXYCYCLINE HYCLATE 100 MG ORAL CAPSULE 1 cap by mouth twice latasha ly DOXYCYCLINE HYCLATE 52117602522 No Longer Active David Marianne BRICK TESTER Active TOPAMAX 100 MG ORAL TABLET Take 1 tablet po bid TOPIRAMATE 92749510656 No Longer Active David Marianne BRICK TESTER Active TUSSIONEX PENNKINETIC ER 10-8 MG/5ML ORAL SUSPENSION E XTENDED RELEASE 5ml po q12hr PRN Cough HYDROCOD POLST-CHLORPHEN POLST 5 5660492447 No Longer Active David Marianne BRICK TESTER Active AUGMENTIN 875-125 MG ORAL TABLET 1 po BID x 10 days 18/04/16 AMOXICILLIN-POT CLAVULANATE 52481215066 No Longer Active David Marianne BRICK TESTER Active PREDNISONE 50 MG ORAL TABLET Take 50 mg dialy for 6 day s 7 PREDNISONE 96008886965 No Longer Active David Marianne BRICK TESTER Active TUSSIONEX PENNKINETIC ER 10-8 MG/5ML ORAL SUSPENSION E XTENDED RELEASE 5ml po q12hr PRN Cough HYDROCOD POLST-CHLORPHEN POLST 5 0093203399 No Longer Active Cherelle Torres RN Active PREDNISONE 20 MG ORAL TABLET two tabs by mouth today, then one tab by mouth days two and three and four PREDNISONE 32928630452 No Lo nger Active Cherelle Torres RN Active AZITHROMYCIN 250 MG ORAL TABLET 2 po qd x 1 day, then 1 po q d x 4 days AZITHROMYCIN 97572224464 No Longer Active Ridge eBss DO Active PREDNISONE 20 MG ORAL TABLET 2 po qd x 5 days P REDNISONE 69804747550 No Longer Active Perez Mora MD Active PROAIR HFA 108 (90 BASE) MCG/ACT INHALATION AEROSOL SO LUTION 2 puffs four times a day as needed ALBUTEROL SULFATE 71535507738 No Long er Active Becky AGUILARA Active ASPIRIN 81 MG ORAL TABLET 1 po qd ASPIRIN 16059459356 Active Carlton Hu MD Active PREDNISONE 20 MG ORAL TABLET 1 tab twice daily for 3 d ay, then one daily for three days PREDNISONE 72127756264 No Longer Active Carlton Hu MD Active AUGMENTIN 875-125 MG ORAL TABLET 1 po BID x 10 days 16/03/22 AMOXICILLIN-POT CLAVULANATE 03893276594 No Longer Active Elise Garcia BRICK TESTER Active TERBINAFINE HCL 250 MG ORAL TABLET 1 qDay for nail fungus 7 TERBINAFINE HCL 09556126149 No Longer Active Carlton Hu MD A ctive AMOXICILLIN 500 MG ORAL CAPSULE 1 cap by mouth three times a day AMOXICILLIN 99192178876 No Longer Active Carlton Hu MD Active ELMIRON 100 MG ORAL CAPSULE 2 tablets in the am and 1 tablet at hs PENTOSAN POLYSULFATE SODIUM 88096351317 No Longer Active Robert jade Hu MD Active MUCINEX D 60-600 MG ORAL TABLET EXTENDED RELEASE 12 HOUR 1 t ab po q am PSEUDOEPHEDRINE-GUAIFENESIN 97634717344 No Longer Act nael Carlton Hu MD Active MUCINEX DM MAXIMUM STRENGTH 60-1200 MG ORAL TABLET EXT ENDED RELEASE 12 HOUR 1 tab po q am DEXTROMETHORPHAN-GUAIFENESIN 05513706522 No Longer Active Carlton Hu MD Active TUSSIONEX PENNKINETIC ER 10-8 MG/5ML ORAL SUSPENSION E XTENDED RELEASE 5ml po q12hr PRN Cough HYDROCOD POLST-CHLORPHEN POLST 5 9331495982 No Longer Active Carlton Hu MD Active POTASSIUM CHLORIDE ER 20 MEQ ORAL TABLET EXTENDED RELE ASE Take 1 by mouth 4 times daily for 7 days POTASSIUM CHLORIDE 73093283061 No Longer Active Carlton Hu MD Active ZITHROMAX 250 MG ORAL TABLET 2 po today, then 1 po q days 2-5 20 14/09/04 AZITHROMYCIN 74450731504 No Longer Active Elise Areseema BRICK TESTER Active TUSSIONEX PENNKINETIC ER 10-8 MG/5ML ORAL SUSPENSION E XTENDED RELEASE 5 ml twice a day as needed for cough HYDROCOD POLST-CHLORPH EN POLST 60889785597 No Longer Active Elise Garcia APRN Active MONTELUKAST SODIUM 10 MG ORAL TABLET 1 po daily for Allergy MONTELUKAST SODIUM 38094890948 Active Carlton Hu MD Ac tive TUSSIONEX PENNKINETIC ER 10-8 MG/5ML ORAL SUSPENSION E XTENDED RELEASE 5ml po q12hr PRN Cough HYDROCOD POLST-CHLORPHEN POLST 5 1576915814 No Longer Active Hugo Restrepo MD Active GABAPENTIN 100 MG ORAL CAPSULE 1 po BID for fibromyalgia GABAPENTIN 12624676487 Active ALFREDO Holly Active LYRICA 100 MG ORAL CAPSULE Take 1 tab po BID for fibromyalgia 20 11/08/21 PREGABALIN 82624420445 No Longer Active Elise Garcia APRN A ctive PREDNISONE 20 MG ORAL TABLET 2 tabs daily for 3 days, 1 tab daily for 3 days, 1/2 tab daily for 2 days PREDNISONE 28706542392 No Longer Active Astridina Gege KHAN Active TUSSIONEX PENNKINETIC ER 10-8 MG/5ML ORAL SUSPENSION E XTENDED RELEASE 5 mL PO q 12 hrs PRN cough HYDROCOD POLST-CHLORPHEN POLST 563775 12895 No Longer Active Jillina Frazell BRICK TESTER Active FLUTICASONE PROPIONATE 50 MCG/ACT NASAL SUSPENSION 2 s prays each nostril daily until bottle is empty FLUTICASONE PROPIONATE 567028769 99 No Longer Active Jillina Frazell BRICK TESTER Active ASMANEX 60 METERED DOSES 220 MCG/INH INHALATION AEROSO L POWDER BREATH ACTIVATED 1 puff bid with rinse after MOMETASONE FUROATE 9472489 4102 No Longer Active Jillina Frazell BRICK TESTER Active ZITHROMAX Z-REYNA 250 MG ORAL TABLET 2 today, then 1 daily for 4 d ays AZITHROMYCIN 49166238163 No Longer Active Elise Garcia APRN Active TUSSIONEX PENNKINETIC ER 10-8 MG/5ML ORAL SUSPENSION E XTENDED RELEASE 5ml po q12hr PRN Cough HYDROCOD POLST-CHLORPHEN POLST 5 4355809999 No Longer Active Elise Garcia BRICK TESTER Active PREDNISONE 20 MG ORAL TABLET 2 tabs daily for 3 days, 1 tab daily for 3 days, 1/2 tab daily for 2 days PREDNISONE 47604135784 No Longer Active Diya De Guzman APRN Active AMOXICILLIN 500 MG ORAL CAPSULE 2 po BID x 10 days 201 09/29/08 AMOXICILLIN 64675896893 No Longer Active Diya De Guzman APRN Act nael SINGULAIR 10 MG ORAL TABLET 1 po qday for allergies 20 14/01/12 MONTELUKAST SODIUM 23275444895 No Longer Active Carlton Hu MD Active LEVAQUIN 500 MG ORAL TABLET 1 tablet by mouth daily 20 13/09/24 LEVOFLOXACIN 58557199700 No Longer Active Carlton Hu MD Acti ve FLUTICASONE PROPIONATE 50 MCG/ACT NASAL SUSPENSION 2 s prays each nostril daily for 2 weeks, then 1 spray each nostril daily. FLUTICASONE PROPIONATE 49439579017 Active Carlton Hu MD Active ZITHROMAX 250 MG ORAL TABLET 2 po today, then 1 po q days 2-5 20 13/08/10 AZITHROMYCIN 80963757442 No Longer Active Elise Garcia APRN Active XANAX 0.5 MG ORAL TABLET one tablet by mouth daily prn anxiety 2015 ALPRAZOLAM 29738140495 Active ALFREDO Holly Active CEFDINIR 300 MG ORAL CAPSULE 1 po BID x 10 days CEFDINIR 00323346106 No Longer Active Carlton Hu MD Active ZOCOR 40 MG ORAL TABLET 1 tab by mouth daily SI MVASTATIN 57722804659 No Longer Active Carlton Hu MD Active CYCLOBENZAPRINE HCL 10 MG ORAL TABLET 1 tablet by mouth BID prn had pain CYCLOBENZAPRINE HCL 74527163038 No Longer Active Jayden Hu MD Active LEVOFLOXACIN 500 MG ORAL TABLET 1 tab PO daily x 10 days LEVOFLOXACIN 56748536447 No Longer Active Carlton Hu MD Acti ve PREDNISONE 20 MG ORAL TABLET 3 tab PO qd x 2d, 2 tab P O qd x 2d, 1 tab PO qd x 2d, 1/2 tab PO qd x 2d PREDNISONE 93855438461 No Lo nger Active Carlton Hu MD Active FLUTICASONE PROPIONATE 50 MCG/ACT NASAL SUSPENSION 1 t o 2 sprays each nostril daily FLUTICASONE PROPIONATE 35488520032 No Longer Ac tive Blaine HERNANDEZ Active CHERATUSSIN AC 100-10 MG/5ML ORAL SYRUP 1 tsp by mouth every 4 hours as needed for cough GUAIFENESIN-CODEINE 51040762101 No Longe r Active Blaine HERNANDEZ Active PROMETHAZINE-CODEINE 6.25-10 MG/5ML ORAL SYRUP 1 tsp b y mouth every 6 hours if needed for cough PROMETHAZINE-CODEINE 86336526274 No Longer Active Blaine HERNANDEZ Active CHERATUSSIN AC 100-10 MG/5ML ORAL SYRUP 1 tsp by mouth every 4 hours as needed for cough GUAIFENESIN-CODEINE 79667931424 No Longe r Active Blaine HERNANDEZ Active ZITHROMAX Z-REYNA 250 MG ORAL TABLET 2 today, then 1 daily for 4 d ays AZITHROMYCIN 18122336144 No Longer Active Columba Parrish Act nael ZITHROMAX 250 MG ORAL TABLET 2 po today, then 1 po q days 2-5 20 14/03/21 AZITHROMYCIN 28758709711 No Longer Active Carlton Hu MD Active ZITHROMAX Z-REYNA 250 MG ORAL TABLET 2 today, then 1 daily for 4 d ays AZITHROMYCIN 13010678065 No Longer Active Columba Raida Act nael AUGMENTIN 875-125 MG ORAL TABLET 1 po BID x 10 days 13/01/20 AMOXICILLIN-POT CLAVULANATE 81086521941 No Longer Active Diya Sernabrayan KHAN Active ZITHROMAX 250 MG ORAL TABLET 2 po today, then 1 po q days 2-5 20 12/08/14 AZITHROMYCIN 24022159063 No Longer Active Carlton Hu MD Active TRAMADOL HCL 50 MG ORAL TABLET 1 po tid with ES Tylenol TRAMADOL HCL 89644339070 Active Carlton Hu MD Active PREMARIN 0.625 MG ORAL TABLET TAKE 1 TAB BY MOUTH DAILY ESTROGENS CONJUGATED 88056365500 No Longer Active Ridge Bess DO A ctive CYMBALTA 30 MG ORAL CAPSULE DELAYED RELEASE PARTICLES 1 cap by mouth daily DULOXETINE HCL 84868746293 No Longer Active Ridge tam DO Active AMOXICILLIN 500 MG ORAL CAPSULE 1 tab by mouth 3 times daily x 10 days AMOXICILLIN 32588458224 No Longer Active Carlton bustamante MD Active AMOXICILLIN 500 MG ORAL CAPSULE 1 tab by mouth 3 times daily x 10 days AMOXICILLIN 09975826668 No Longer Active Carlton bustamante MD Active PROMETHAZINE-CODEINE 6.25-10 MG/5ML ORAL SYRUP 1 tsp b y mouth every 8 hours prn cough PROMETHAZINE-CODEINE 91858438857 No Longer Acti ve Carlton Hu MD Active MEDROL 4 MG ORAL TABLET THERAPY PACK 6 pills x 1 day, then 5 pills x 1 day then 4 pills x 1 day, then 3 pills x 1 day, then 2 pills x 1 day, then 1 pill x 1 day, then stop METHYLPREDNISOLONE 38973703616 No Long er Active Perez Mora MD Active AZITHROMYCIN 250 MG ORAL TABLET 2 po qd x 1 day, then 1 po q d x 4 days AZITHROMYCIN 31284684775 No Longer Active Perez Ambriz MD Active SYMBICORT 160-4.5 MCG/ACT INHALATION AEROSOL 2 puffs bid wit h rinse after BUDESONIDE-FORMOTEROL FUMARATE 29362078456 N o Longer Active Perez Mora MD Active LYRICA 75 MG ORAL CAPSULE TAKE 1 CAPSULE BY MOUTH TWICE DAILY PREGABALIN 12405059270 No Longer Active Carlton Hu MD Acti ve TOPAMAX 25 MG ORAL TABLET 1 qHS x 1 week, then 1 BID x 1 week, then 1 qAM and 2 qHS x 1 week, then 2 BID (migraine prevention) T OPIRAMATE 54578405925 No Longer Active Jerica FUENTES Active TOPAMAX 50 MG ORAL TABLET take 1 tab po BID for migraines. 07/02 TOPIRAMATE 39208142273 No Longer Active Jerica FUENTES Active TRIAMCINOLONE ACETONIDE 0.1 % EXTERNAL CREAM apply three roger es daily prn rash TRIAMCINOLONE ACETONIDE 71986672162 No Longer Active Carlton Hu MD Active PAXIL 40 MG ORAL TABLET take 1 tab po qday for depression 0 PAROXETINE HCL 07548636541 Active Carlton Hu MD Active CHERATUSSIN AC 100-10 MG/5ML ORAL SYRUP 5ml po q6hr PRN Cough 20 13/04/14 GUAIFENESIN-CODEINE 85417746422 No Longer Active Carlton Hu MD Active MEDROL 4 MG ORAL TABLET THERAPY PACK 6 tabs on day 1, 5 tabs on day 2, 4 tabs on day 3, 3 tabs on day 4, 2 tabs on day 5, 1 tab on day 6 2013 METHYLPREDNISOLONE 50999749671 No Longer Active Perez Mora MD Active AZITHROMYCIN 250 MG ORAL TABLET 2 po qd x 1 day, then 1 po q d x 4 days AZITHROMYCIN 70044767270 No Longer Active Perez Ambriz MD Active PROPRANOLOL HCL 60 MG ORAL TABLET 1 PO Q D PROPRANOLOL HCL 70049443650 No Longer Active Perez Mora MD Activ e CHERATUSSIN AC 100-10 MG/5ML ORAL SYRUP take one tsp po Q 6h ours prn cough GUAIFENESIN-CODEINE 59794655558 No Longer Active Zia Mora MD Active AUGMENTIN 875-125 MG ORAL TABLET 1 tab by mouth twice daily with food AMOXICILLIN-POT CLAVULANATE 66313267196 No Longer Act nael Perez Mora MD Active CHERATUSSIN AC 100-10 MG/5ML ORAL SYRUP 1 tsp by mouth every 4 hours as needed for cough GUAIFENESIN-CODEINE 38052452863 No Longe r Active Hugo Restrepo MD Active ACETAMINOPHEN-CODEINE #3 300-30 MG ORAL TABLET 1 PO Q 4-6 HRS [place] ACETAMINOPHEN-CODEINE 09220774570 No Longer Active Hugo Restrepo MD Active LEVAQUIN 500 MG ORAL TABLET take one po QD LEVO FLOXACIN 28140505668 No Longer Active Griffin HERNANDEZ Active PREDNISONE 20 MG ORAL TABLET Take 3 tabs daily for 3 d ays, 2 tabs daily for 3 days, 1 tab daily for 3 days, 1/2 tab daily for 3 days 11/07 PREDNISONE 87854096635 No Longer Active Carlton Hu MD Acti ve AVELOX 400 MG ORAL TABLET 1 tab by mouth daily MOXIFLOXACIN HCL 42357872194 No Longer Active Carlton Hu MD Active CHERATUSSIN AC 100-10 MG/5ML ORAL SYRUP 1 tsp by mouth every 4 hours as needed for cough GUAIFENESIN-CODEINE 81113265893 No Longe r Active Hugo Restrepo MD Active AVELOX 400 MG ORAL TABLET 1 tab by mouth daily MOXIFLOXACIN HCL 03426438428 No Longer Active Marcy De La Rosa MD PhD Active TERBINAFINE HCL 250 MG ORAL TABLET 1 qDay T ERBINAFINE HCL 48147406990 No Longer Active Marcy De La Rosa MD PhD Active CHERATUSSIN AC 100-10 MG/5ML ORAL SYRUP 1 tsp by mouth every 4 hours as needed for cough GUAIFENESIN-CODEINE 70895349481 No Longe r Active Marcy De La Rosa MD PhD Active AVELOX 400 MG ORAL TABLET 1 tab by mouth daily MOXIFLOXACIN HCL 60700855943 No Longer Active Marcy De La Rosa MD PhD Active HYDROCODONE-ACETAMINOPHEN 5-325 MG ORAL TABLET 1 po q 6hr PRN co ugh HYDROCODONE-ACETAMINOPHEN 77392630922 No Longer Active Marcy De La Rosa MD PhD Active PREDNISONE 20 MG ORAL TABLET 2 tabs daily for 3 days, 1 tab daily for 3 days, 1/2 tab daily for 2 days PREDNISONE 28764611792 No Longer Active Carlton Hu MD Active CEFDINIR 300 MG ORAL CAPSULE by mouth twice a day 2011 CEFDINIR 20299751511 No Longer Active Carlton Hu MD Acti ve HYDROCHLOROTHIAZIDE 25 MG ORAL TABLET 1 TAB PO DAILY HYDROCHLOROTHIAZIDE 18120877066 Active Carlton Hu MD A ctive ACETAMINOPHEN-CODEINE #3 300-30 MG ORAL TABLET 1 tablet po q 4-6 hrs prn pain ACETAMINOPHEN-CODEINE 46493128857 No Longer Active Ridge Bess DO Active ZITHROMAX 250 MG ORAL TABLET 2 po today, then 1 po q days 2-5 20 03/07/07 AZITHROMYCIN 63552112886 No Longer Active Carlton Hu MD Active CHERATUSSIN AC 100-10 MG/5ML ORAL SYRUP take 1 tsp po q4-6 h ours prn cough GUAIFENESIN-CODEINE 93731363218 No Longer Active Jayden Hu MD Active ACETAMINOPHEN-CODEINE #3 300-30 MG ORAL TABLET 1 PO Q 4-6 HR PRN PAIN ACETAMINOPHEN-CODEINE 11316721697 No Longer Active Arnol Hu MD Active LORTAB 7.5-500 MG/15ML ORAL ELIXIR 7.5 ml po q 4 hour prn cough HYDROCODONE-ACETAMINOPHEN 53684757608 No Longer Active Carlton Hu MD Active PREDNISONE 20 MG ORAL TABLET 1 po bid 3 days, then 1 po q day 3 days PREDNISONE 31032877461 No Longer Active Carlton Hu MD Active CEFDINIR 300 MG ORAL CAPSULE by mouth twice a day 2011 CEFDINIR 53887194974 No Longer Active Carlton Hu MD Acti ve CEFDINIR 300 MG ORAL CAPSULE by mouth twice a day 2010 CEFDINIR 81638265196 No Longer Active Carlton Hu MD Acti ve CEFDINIR 300 MG ORAL CAPSULE by mouth twice a day 2010 CEFDINIR 19090134242 No Longer Active Carlton Hu MD Acti ve TESSALON PERLES 100 MG ORAL CAPSULE 1 tablet by mouth 3 times daily as needed for cough BENZONATATE 71515284610 No Longer Active Carlton Hu MD Active CEFDINIR 300 MG ORAL CAPSULE by mouth twice a day 2010 CEFDINIR 02490681777 No Longer Active Carlton Hu MD Acti ve ZITHROMAX Z-REYNA 250 MG ORAL TABLET 2 today, then 1 daily for 4 d ays AZITHROMYCIN 70288439447 No Longer Active Hugo Restrepo MD Active TESSALON PERLES 100 MG ORAL CAPSULE 1 tablet by mouth 3 times daily as needed for cough TESSALON PERLES 100 MG ORAL CAPSULE 11789 7 BENZONATATE Inactive PREDNISONE 20 MG ORAL TABLET 1 po bid 3 days, then 1 po q day 3 days PREDNISONE 20 MG ORAL TABLET 448059 PREDNISONE Greer ctive LORTAB 7.5-500 MG/15ML ORAL [...] cough CHERATUSSIN AC 100-10 MG/5ML ORAL SYRUP 855633 GUAIFENESIN-CODEINE Inactive ACETAMINOPHEN-CODEINE #3 300-30 MG ORAL TABLET 1 tablet po q 4-6 hrs prn pain ACETAMINOPHEN-CODEINE #3 300-30 MG ORAL TABLET ACETAMINOPHEN-CODEINE Inactive HYDROCODONE-ACETAMINOPHEN 5-325 MG ORAL TABLET 1 po q 6hr PRN co ugh HYDROCODONE-ACETAMINOPHEN 5-325 MG ORAL TABLET 523192 HYDROCODONE-ACETAMINOPHEN Inactive AVELOX 400 MG ORAL TABLET 1 tab by mouth daily AVELOX 400 MG ORAL TABLET MOXIFLOXACIN HCL Inactive CHERATUSSIN AC 100-10 MG/5ML ORAL SYRUP 1 tsp by mouth every 4 hours as needed for cough CHERATUSSIN AC 100-10 MG/5ML ORAL SYRUP 9 45928 GUAIFENESIN-CODEINE Inactive TERBINAFINE HCL 250 MG ORAL TABLET 1 qDay 07/08 TERBINAFINE HCL 250 MG ORAL TABLET 566599 TERBINAFINE HCL Inactive CHERATUSSIN AC 100-10 MG/5ML ORAL SYRUP 1 tsp by mouth every 4 hours as needed for cough CHERATUSSIN AC 100-10 MG/5ML ORAL SYRUP 9 02966 GUAIFENESIN-CODEINE Inactive ACETAMINOPHEN-CODEINE #3 300-30 MG ORAL TABLET 1 PO Q 4-6 HRS [place] PAIN ACETAMINOPHEN-CODEINE #3 300-30 MG ORAL TABLET ACETAMINOPHEN-CODEINE Inactive CHERATUSSIN AC 100-10 MG/5ML ORAL SYRUP 1 tsp by mouth every 4 hours as needed for cough CHERATUSSIN AC 100-10 MG/5ML ORAL SYRUP 9 05843 GUAIFENESIN-CODEINE Inactive AUGMENTIN 875-125 MG ORAL TABLET 1 tab by mouth twice daily with food AUGMENTIN 875-125 MG ORAL TABLET AMOXICIL MADELINE-POT CLAVULANATE Inactive CHERATUSSIN AC 100-10 MG/5ML ORAL SYRUP take one tsp po Q 6h ours prn cough CHERATUSSIN AC 100-10 MG/5ML ORAL SYRUP 296464 GUAIFENESIN-CODEINE Inactive PROPRANOLOL HCL 60 MG ORAL TABLET 1 PO Q D PROPRANOLOL HCL 60 MG ORAL TABLET 757668 PROPRANOLOL HCL Inactive TOPAMAX 50 MG ORAL TABLET take 1 tab po BID for migraines. 07/02 TOPAMAX 50 MG ORAL TABLET 089019 TOPIRAMATE Inacti ve TOPAMAX 25 MG ORAL TABLET 1 qHS x 1 week, then 1 BID x 1 week, then 1 qAM and 2 qHS x 1 week, then 2 BID (migraine prevention) TOPAMAX 25 MG ORAL TABLET 161084 TOPIRAMATE Inactive LYRICA 75 MG ORAL CAPSULE TAKE 1 CAPSULE BY MOUTH TWICE DAILY LYRICA 75 MG ORAL CAPSULE 277187 PREGABALIN Inactive SYMBICORT 160-4.5 MCG/ACT INHALATION AEROSOL 2 puffs bid wit h rinse after SYMBICORT 160-4.5 MCG/ACT INHALATION AEROSOL BUDESONIDE- FORMOTEROL FUMARATE Inactive PROMETHAZINE-CODEINE 6.25-10 MG/5ML ORAL SYRUP 1 tsp b y mouth every 8 hours prn cough PROMETHAZINE-CODEINE 6.25-10 MG/ 5ML ORAL SYRUP 931797 PROMETHAZINE-CODEINE Inactive CYMBALTA 30 MG ORAL CAPSULE DELAYED RELEASE PARTICLES 1 cap by mouth daily CYMBALTA 30 MG ORAL CAPSULE DELAYED RELE ASE PARTICLES 257848 DULOXETINE HCL Inactive PREMARIN 0.625 MG ORAL TABLET TAKE 1 TAB BY MOUTH DAILY PREMARIN 0.625 MG ORAL TABLET ESTROGENS CONJUGATED Inactive CHERATUSSIN AC 100-10 MG/5ML ORAL SYRUP 1 tsp by mouth every 4 hours as needed for cough CHERATUSSIN AC 100-10 MG/5ML ORAL SYRUP 9 69828 GUAIFENESIN-CODEINE Inactive PROMETHAZINE-CODEINE 6.25-10 MG/5ML ORAL SYRUP 1 tsp b y mouth every 6 hours if needed for cough PROMETHAZINE-CODEINE 6.25-10 MG/5ML ORAL SYRUP 916029 PROMETHAZINE-CODEINE Inactive CHERATUSSIN AC 100-10 MG/5ML ORAL SYRUP 1 tsp by mouth every 4 hours as needed for cough CHERATUSSIN AC 100-10 MG/5ML ORAL SYRUP 9 78400 GUAIFENESIN-CODEINE Inactive FLUTICASONE PROPIONATE 50 MCG/ACT NASAL SUSPENSION 1 t o 2 sprays each nostril daily FLUTICASONE PROPIONATE 50 MCG/AC T NASAL SUSPENSION 9642882 FLUTICASONE PROPIONATE Inactive PREDNISONE 20 MG ORAL TABLET 3 tab PO qd x 2d, 2 tab P O qd x 2d, 1 tab PO qd x 2d, 1/2 tab PO qd x 2d PREDNISONE 20 MG ORAL TAB LET 294189 PREDNISONE Inactive LEVOFLOXACIN 500 MG ORAL TABLET 1 tab PO daily x 10 days LEVOFLOXACIN 500 MG ORAL TABLET 977475 LEVOFLOXACIN Inactive CYCLOBENZAPRINE HCL 10 MG ORAL TABLET 1 tablet by mouth BID prn had pain CYCLOBENZAPRINE HCL 10 MG ORAL TABLET 460459 CYCLOBENZAPRINE HCL Inactive ZOCOR 40 MG ORAL TABLET 1 tab by mouth daily 4 ZOCOR 40 MG ORAL TABLET 646420 SIMVASTATIN Inactive TUSSIONEX PENNKINETIC ER 10-8 MG/5ML [...] FLUTICASONE PROPIO EFE 50 MCG/ACT NASAL SUSPENSION 4154154 FLUTICASONE PROPIONATE Inactive TUSSIONEX PENNKINETIC ER 10-8 MG/5ML ORAL SUSPENSION E XTENDED RELEASE 5 mL PO q 12 hrs PRN cough TUSSIONEX PENNKINETI C ER 10-8 MG/5ML ORAL SUSPENSION EXTENDED RELEASE HYDROCOD POLST-CHLORPHEN POLST I nactive LYRICA 100 MG ORAL CAPSULE Take 1 tab po BID for fibromyalgia 11/08/21 LYRICA 100 MG ORAL CAPSULE 218230 PREGABALIN Inact nael TUSSIONEX PENNKINETIC ER 10-8 [...] three days PREDNISONE 20 MG ORAL TABLET 844468 PREDNIS ONE Inactive PROAIR HFA 108 (90 BASE) MCG/ACT INHALATION AEROSOL SO LUTION 2 puffs four times a day as needed PROAIR HFA 108 (90 B ASE) MCG/ACT INHALATION AEROSOL SOLUTION ALBUTEROL SULFATE Inactive PREDNISONE 20 MG ORAL TABLET two tabs by mouth today, then one tab by mouth days two and three and four PREDNISONE 20 MG ORAL TAB LET 069892 PREDNISONE Inactive TUSSIONEX PENNKINETIC ER 10-8 MG/5ML [...] bid 04/20 TOPAMAX 100 MG ORAL TABLET 135553 TOPIRAMATE Inactive CYMBALTA 30 MG ORAL CAPSULE DELAYED RELEASE PARTICLES 1 cap by mouth daily for depression CYMBALTA 30 MG ORAL CAPSULE DELAYED RELEASE PARTICLES 884003 DULOXETINE HCL Inactive ZITHROMAX Z-REYNA 250 MG ORAL TABLET 2 today, then 1 daily for 4 d ays ZITHROMAX Z-REYNA 250 MG ORAL TABLET 559104 AZITHROMYCIN Inactive CEFDINIR 300 MG ORAL CAPSULE by mouth twice a day 2010 CEFDINIR 300 MG ORAL CAPSULE 996406 CEFDINIR Inactive CEFDINIR 300 MG ORAL CAPSULE by mouth twice a day 2010 CEFDINIR 300 MG ORAL CAPSULE 556615 CEFDINIR Inactive CEFDINIR 300 MG ORAL CAPSULE by mouth twice a day 2010 CEFDINIR 300 MG ORAL CAPSULE 818937 CEFDINIR Inactive CEFDINIR 300 MG ORAL CAPSULE by mouth twice a day 2011 CEFDINIR 300 MG ORAL CAPSULE 535557 CEFDINIR Inactive ZITHROMAX 250 MG ORAL TABLET 2 po today, then 1 po q days 2-5 20 03/07/07 ZITHROMAX 250 MG ORAL TABLET 273646 AZITHROMYCIN Greer ctive CEFDINIR 300 MG ORAL CAPSULE by mouth twice a day 2011 CEFDINIR 300 MG ORAL CAPSULE 20020704 CEFDINIR Inactive PREDNISONE 20 MG ORAL TABLET 2 tabs daily for 3 days, 1 tab daily for 3 days, 1/2 tab daily for 2 days PREDNISONE 20 MG ORAL T ABLET 008972 PREDNISONE Inactive AVELOX 400 MG ORAL TABLET [...] days 11/07 PREDNISONE 20 MG ORAL TABLET 880506 PREDNISONE Inactive LEVAQUIN 500 MG ORAL TABLET take one po QD LEVAQUIN 500 MG ORAL TABLET 898760 LEVOFLOXACIN Inactive AZITHROMYCIN 250 MG ORAL TABLET 2 po qd x 1 day, then 1 po q d x 4 days AZITHROMYCIN 250 MG ORAL TABLET 654961 AZITHROMY GIOVANNI Inactive MEDROL 4 MG ORAL TABLET THERAPY PACK 6 tabs on day 1, 5 tabs on day 2, 4 tabs on day 3, 3 tabs on day 4, 2 tabs on day 5, 1 tab on day 6 2013 MEDROL 4 MG ORAL TABLET THERAPY PACK [id number] METHYLPREDNISOLONE Greer ctive CHERATUSSIN AC 100-10 MG/5ML ORAL SYRUP 5ml po q6hr PRN Cough 20 13/04/14 CHERATUSSIN AC 100-10 MG/5ML ORAL SYRUP 723526 GUAIFENE SIN-CODEINE Inactive TRIAMCINOLONE ACETONIDE 0.1 % EXTERNAL CREAM apply three roger es daily prn rash TRIAMCINOLONE ACETONIDE 0.1 % EXTERNAL CREAM 101 4314 TRIAMCINOLONE ACETONIDE Inactive AZITHROMYCIN 250 MG ORAL TABLET 2 po qd x 1 day, then 1 po q d x 4 days AZITHROMYCIN 250 MG ORAL TABLET 469758 AZITHROMY GIOVANNI Inactive MEDROL 4 MG ORAL TABLET THERAPY PACK 6 pills x 1 day, then 5 pills x 1 day then 4 pills x 1 day, then 3 pills x 1 day, then 2 pills x 1 day, then 1 pill x 1 day, then stop MEDROL 4 MG ORAL TABLET THERAPY PACK 816844 METHYLPREDNISOLONE Inactive AMOXICILLIN 500 MG ORAL CAPSULE 1 tab by mouth 3 times daily x 10 days AMOXICILLIN 500 MG ORAL CAPSULE 865612 AMOXICILL IN Inactive AMOXICILLIN 500 MG ORAL CAPSULE 1 tab by mouth 3 times daily x 10 days AMOXICILLIN 500 MG ORAL CAPSULE 978248 AMOXICILL IN Inactive ZITHROMAX 250 MG ORAL TABLET 2 po today, then 1 po q days 2-5 20 12/08/14 ZITHROMAX 250 MG ORAL TABLET 615382 AZITHROMYCIN [facility] AUGMENTIN 875-125 MG ORAL TABLET 1 po BID x 10 days 20 13/01/20 AUGMENTIN 875-125 MG ORAL TABLET AMOXICILLIN-POT CLAVULANATE Inactive ZITHROMAX Z-REYNA 250 MG ORAL TABLET 2 today, then 1 daily for 4 d ays ZITHROMAX Z-REYNA 250 MG ORAL TABLET 843776 AZITHROMYCIN Inactive ZITHROMAX 250 MG ORAL TABLET 2 po today, then 1 po q days 2-5 20 14/03/21 ZITHROMAX 250 MG ORAL TABLET 418746 AZITHROMYCIN [facility] ZITHROMAX Z-REYNA 250 MG ORAL TABLET 2 today, then 1 daily for 4 d ays ZITHROMAX Z-REYNA 250 MG ORAL TABLET 770725 AZITHROMYCIN Inactive CEFDINIR 300 MG ORAL CAPSULE 1 po BID x 10 days 06/21 CEFDINIR 300 MG ORAL CAPSULE 860869 CEFDINIR Inactive ZITHROMAX 250 MG ORAL TABLET 2 po today, then 1 po q days 2-5 20 13/08/10 ZITHROMAX 250 MG ORAL TABLET 160932 AZITHROMYCIN [facility] LEVAQUIN 500 MG ORAL TABLET 1 tablet by mouth daily 13/09/24 LEVAQUIN 500 MG ORAL TABLET 642856 LEVOFLOXACIN Inactive SINGULAIR 10 MG ORAL TABLET 1 po qday for allergies 20 14/01/12 SINGULAIR 10 MG ORAL TABLET 20010504 MONTELUKAST SODIUM Inactive AMOXICILLIN 500 MG ORAL CAPSULE 2 po BID x 10 days 201 09/29/08 AMOXICILLIN 500 MG ORAL CAPSULE 938401 AMOXICILLIN Inactive PREDNISONE 20 MG ORAL TABLET 2 tabs daily for 3 days, 1 tab daily for 3 days, 1/2 tab daily for 2 days PREDNISONE 20 MG ORAL T ABLET 887722 PREDNISONE Inactive ZITHROMAX Z-REYNA 250 MG ORAL TABLET 2 today, then 1 daily for 4 d ays ZITHROMAX Z-REYNA 250 MG ORAL TABLET 544950 AZITHROMYCIN Inactive PREDNISONE 20 MG ORAL TABLET 2 tabs daily for 3 days, 1 tab daily for 3 days, 1/2 tab daily for 2 days PREDNISONE 20 MG ORAL T ABLET 302530 PREDNISONE Inactive ZITHROMAX 250 MG ORAL TABLET 2 po today, then 1 po q days 2-5 20 14/09/04 ZITHROMAX 250 MG ORAL TABLET 940333 AZITHROMYCIN [facility] AMOXICILLIN 500 MG ORAL CAPSULE 1 cap by mouth three times a day AMOXICILLIN 500 MG ORAL CAPSULE 648901 AMOXICILLIN Inactive TERBINAFINE HCL 250 MG ORAL TABLET 1 qDay for nail fungus 7 TERBINAFINE HCL 250 MG ORAL TABLET 451732 TERBINAFINE HCL Inact nael AUGMENTIN 875-125 MG ORAL TABLET 1 po BID x 10 days 16/03/22 AUGMENTIN 875-125 MG ORAL TABLET AMOXICILLIN-POT CLAVULANATE Inactive PREDNISONE 20 MG ORAL TABLET 2 po qd x 5 days PREDNISONE 20 MG ORAL TABLET 730736 PREDNISONE Inactive AZITHROMYCIN 250 MG ORAL TABLET 2 po qd x 1 day, then 1 po q d x 4 days AZITHROMYCIN 250 MG ORAL TABLET 067401 AZITHROMY GIOVANNI Inactive PREDNISONE 50 MG ORAL TABLET Take 50 mg dialy for 6 day s 7 PREDNISONE 50 MG ORAL TABLET 919379 PREDNISONE Inactive AUGMENTIN 875-125 MG ORAL TABLET 1 po BID x 10 days 18/04/16 AUGMENTIN 875-125 MG ORAL TABLET AMOXICILLIN-POT CLAVULANATE Inactive DOXYCYCLINE HYCLATE 100 MG ORAL CAPSULE 1 cap by mouth twice latasha ly DOXYCYCLINE HYCLATE 100 MG ORAL CAPSULE 9197383 DOXYCYCL INE HYCLATE Inactive PREDNISONE 20 MG ORAL TABLET Take 2 tabs day 1 and 2 and 1 t ab days 3 and 4 PREDNISONE 20 MG ORAL TABLET 837517 PREDNISONE Inactive AMOXICILLIN 500 MG ORAL CAPSULE 1 cap by mouth twice daily 10/21 AMOXICILLIN 500 MG ORAL CAPSULE 112259 AMOXICILLIN Inactive TRIAMCINOLONE ACETONIDE 0.1 % EXTERNAL OINTMENT Apply to affected areas TID PRN Rash/Itching for up 2 weeks TRIAMCINOLON E ACETONIDE 0.1 % EXTERNAL OINTMENT 2400096 TRIAMCINOLONE ACETONIDE Inactive ACYCLOVIR 800 MG ORAL TABLET 1 po 5 times daily x 7 days ACYCLOVIR 800 MG ORAL TABLET 365218 ACYCLOVIR Inactive Vital Signs Date Name Value [...] Metabolic Panel - Chem istry calcium, serum 8.8 mg/dL 8.5-10.1 urea nitrogen, blood 10 mg/dL 7-18 creatinine, serum 0.97 mg/dL 0.60-1.30 Estimated Glomerular Filtration Rate (calc) 62 (?) mL/min/1.73m2 = OR > 60 mL/min blood glucose 103 mg/dL 65-95 carbon dioxide, venous blood 29.4 mmol/L 21.0-32 .0 chloride, serum 102 mmol/L 98-107 potassium, serum 3.8 mmol/L 3.5-5.2 sodium, serum 139 mmol/L 136-145 Office Visit: check-up for elmiron - Fernanda [...] negative Encounters Code Encounter Date Provider Facility CPT-11163 Level 3 Est. Patient 13:57:55 CDT David lion [facility] CPT-25521 Level 3 Est. Patient 16:08:07 CDT David lion [facility] CPT-00586 Level 3 Est. Patient 16:53:54 VINAYT May haas MD [facility] CPT-35452 [id number] Vst-Est Level IV 08:41:[address] Carlton Hu MD [facility] CPT-62525 Level 3 Est. Patient 09:46:49 RECONDITIONING ASSOCIATE David lion [facility]-63842 [id number] Vst-Est Level III 11:12:16 CDT Yanet Bess DO [facility] CPT-75692 Level 3 Est. Patient 11:34:49 RECONDITIONING ASSOCIATE Perez Mora MD [facility]-11998 Level 4 Est. Patient 09:51:32 RECONDITIONING ASSOCIATE Carlton rich MD [facility]-61146 Level 3 Est. Patient 10:26:00 RECONDITIONING ASSOCIATE Elise Are [facility] CPT-25346 Level 3 Est. Patient 13:35:41 RECONDITIONING ASSOCIATE Carlton rich MD [facility]-67445 Level 3 Est. Patient 10:03:52 RECONDITIONING ASSOCIATE Carlton rich MD [facility]-56019 Level 3 Est. Patient 12:17:50 CDT Hugo Restrepo MD [facility]-25202 Level 3 Est. Patient 13:42:38 CDT Elise Are [facility] CPT-55881 Level 3 Est. Patient 13:23:51 CDT Diya cobian [facility]-03604 Level 3 Est. Patient 14:22:19 RECONDITIONING ASSOCIATE Diya cobian [facility]-62229 Level 3 Est. Patient 10:11:46 CDT Carlton rich MD [facility]-75495 Level 3 Est. Patient 17:29:43 CDT Elise Are [facility] CPT-42207 Level 3 Est. Patient 11:58:06 CDT Elise Are [facility] CPT-19752 Level 4 Est. Patient 14:36:51 CDT Carlton rich MD [facility]-73802 Level 3 Est. Patient 18:16:00 RECONDITIONING ASSOCIATE Blaine Freeman [facility] CPT-59510 Level 3 Est. Patient 09:45:49 RECONDITIONING ASSOCIATE Carlton rich MD [facility] CPT-56374 Level 3 Est. Patient 13:19:20 CDT Carlton rich MD [facility]-25584 Level 3 Est. Patient 13:06:43 CDT Ridge tam DO [facility] CPT-09147 Level 3 Est. Patient 10:03:07 CDT Perez Mora MD [facility]-74869 Level 3 Est. Patient 19:50:35 RECONDITIONING ASSOCIATE Carlton rich MD [facility]-54479 Level 4 Est. Patient 18:05:01 RECONDITIONING ASSOCIATE Carlton rcih MD [facility] CPT-58944 Level 3 Est. Patient 10:45:55 RECONDITIONING ASSOCIATE Hugo Restrepo MD [facility]-38168 Level 3 Est. Patient 14:12:49 CDT Griffin lincoln [facility] CPT-27282 Level 3 Est. Patient 17:37:24 CDT Carlton rich MD [facility]-22593 Level 3 Est. Patient 16:51:54 CDT Carlton rich MD [facility] CPT-24018 Level 3 Est. Patient 12:18:11 CDT Hugo Restrepo MD [facility]-05130 Level 3 Est. Patient 11:30:25 CDT Marcy crisostomo MD PhD [facility]-89474 Level 3 Est. Patient 12:00:47 RECONDITIONING ASSOCIATE Carlton rich MD [facility]-88675 Level 3 Est. Patient 16:31:06 RECONDITIONING ASSOCIATE Carlton rich MD [facility] CPT-29163 Level 3 Est. Patient 16:23:24 RECONDITIONING ASSOCIATE Ridge tam [facility] CPT-16023 Level 3 Est. Patient 12:34:12 CDT Carlton rich MD [facility] CPT-38558 Level 2 Est. Patient 15:43:33 CDT Robi armstrong MD [facility] CPT-56570 Level 4 Est. Patient 14:04:44 CDT Carlton rich MD [facility] CPT-87394 Level 3 Est. Patient 05:47:59 CDT Ridge tam [facility] CPT-60513 Level 3 Est. Patient 13:12:53 RECONDITIONING ASSOCIATE Carlton rich MD [facility] CPT-45366 Level 3 Est. Patient 14:26:53 CDT Hugo [...] CPT-J1100 Decadron 6mg (Dexamethasone) 14:32:13 CDT 2 CPT-06097 Hip bilat min 2V w AP pelvis 13:16:20 CDT 2 CPT-72311 Pelvis only 13:07:33 CDT CPT-35541 Spec Collection and Handling Fee 11:25:12 C DT CPT-64628 Fluzone Quadrivalent Intramuscular Suspe nsion 0.5 ML 14:31:55 CDT CPT-24275 Abx/Therapy Injection 13:28:47 RECONDITIONING ASSOCIATE CPT-J2930 Solu Medrol 125 mg (Methyl Prednisolone Sodium Succinate) 12:00:47 RECONDITIONING ASSOCIATE CPT-46153 Venipuncture Draw Fee 11:33:31 CDT CPT-02952 EKG Trac and Interp 11:21:09 CDT CPT-05119 Chest 2V Frontal and Lat 11:21:09 CDT 12/15 CPT-17327 Venipuncture Draw Fee 08:02:34 CDT CPT-05252 Chest 2V Frontal and Lat 05:47:59 CDT 06/05
--- OUTSIDE RECORDS SUMMARY | 2019-10-08 08:52 | XMS REPORT | Clinical Summary ---
Author Author Caitlin, Juliana Martinez Organization [facility] Address Unknown Phone Unavailable Allergies, Adverse Reactions, [...] URI 465.9 Inactive Ridge Bess DO Ac [place] upper respiratory infections of unspecified site Body [...] TABLET 1-2 po q6hr PRN Pain ACETAMINOPHEN-CODEINE 52571761005 Active David Lopes APRN A ctive ACYCLOVIR 800 MG ORAL TABLET 1 po 5 times daily x 7 days ACYCLOVIR 27905356855 Active David Marianne FARM SERVICE ADVISER Active TOPAMAX 100 MG ORAL TABLET 1 by mouth twice daily TOPIRAMATE 91965660230 Active Columba Raida Active TRIAMCINOLONE ACETONIDE 0.1 % EXTERNAL OINTMENT Apply to affected areas TID PRN Rash/Itching for up 2 weeks TRIAMCINOLONE ACETON KAYLA 33244190690 No Longer Active David Lopes APRN Active AMOXICILLIN 500 MG ORAL CAPSULE 1 cap by mouth twice daily 10/21 AMOXICILLIN 85794299631 No Longer Active David Marianne RICEN Active ELMIRON 100 MG ORAL CAPSULE 2 capsules in the morning and 1 capsule at night PENTOSAN POLYSULFATE SODIUM 56701639154 Active 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 CYMBALTA 30 MG ORAL CAPSULE DELAYED RELEASE PARTICLES 1 cap by mouth daily for depression DULOXETINE HCL 53487038833 No Longer Active Carlton Hu MD Active CYMBALTA 60 MG ORAL CAPSULE DELAYED RELEASE PARTICLES 1 cap by mouth daily for mood and pain DULOXETINE HCL 61528058409 Active Carlton Hu MD Active TUSSIONEX PENNKINETIC ER 10-8 MG/5ML ORAL SUSPENSION E XTENDED RELEASE 5ml po q12hr PRN Cough HYDROCOD POLST-CHLORPHEN POLST 92734492150 Active David Lopes APRN Active PREDNISONE 20 MG ORAL TABLET Take 2 tabs day 1 and 2 and 1 t ab days 3 and 4 PREDNISONE 03212706549 No Longer Active David Marianne FARM SERVICE ADVISER Active DOXYCYCLINE HYCLATE 100 MG ORAL CAPSULE 1 cap by mouth twice latasha ly DOXYCYCLINE HYCLATE 77617336093 No Longer Active David Marianne FARM SERVICE ADVISER Active TOPAMAX 100 MG ORAL TABLET Take 1 tablet po bid TOPIRAMATE 06409444534 No Longer Active David Marianne FARM SERVICE ADVISER Active TUSSIONEX PENNKINETIC ER 10-8 MG/5ML ORAL SUSPENSION E XTENDED RELEASE 5ml po q12hr PRN Cough HYDROCOD POLST-CHLORPHEN POLST 5 8235604756 No Longer Active David Marianne FARM SERVICE ADVISER Active AUGMENTIN 875-125 MG ORAL TABLET 1 po BID x 10 days 18/04/16 AMOXICILLIN-POT CLAVULANATE 96954847903 No Longer Active David Marianne FARM SERVICE ADVISER Active PREDNISONE 50 MG ORAL TABLET Take 50 mg dialy for 6 day s 7 PREDNISONE 03209910925 No Longer Active David Marianne FARM SERVICE ADVISER Active TUSSIONEX PENNKINETIC ER 10-8 MG/5ML ORAL SUSPENSION E XTENDED RELEASE 5ml po q12hr PRN Cough HYDROCOD POLST-CHLORPHEN POLST 5 5119571599 No Longer Active Cherelle Torres RN Active PREDNISONE 20 MG ORAL TABLET two tabs by mouth today, then one tab by mouth days two and three and four PREDNISONE 87648064790 No Lo nger Active Cherelle Torres RN Active AZITHROMYCIN 250 MG ORAL TABLET 2 po qd x 1 day, then 1 po q d x 4 days AZITHROMYCIN 01968275862 No Longer Active Ridge Bess DO Active PREDNISONE 20 MG ORAL TABLET 2 po qd x 5 days P REDNISONE 74816984930 No Longer Active Perez Mora MD Active PROAIR HFA 108 (90 BASE) MCG/ACT INHALATION AEROSOL SO LUTION 2 puffs four times a day as needed ALBUTEROL SULFATE 81188200716 No Long er Active Becky AGUILARA Active ASPIRIN 81 MG ORAL TABLET 1 po qd ASPIRIN 85720694444 Active Carlton Hu MD Active PREDNISONE 20 MG ORAL TABLET 1 tab twice daily for 3 d ay, then one daily for three days PREDNISONE 09235419431 No Longer Active Carlton Hu MD Active AUGMENTIN 875-125 MG ORAL TABLET 1 po BID x 10 days 16/03/22 AMOXICILLIN-POT CLAVULANATE 08301328216 No Longer Active Elise Garcia FARM SERVICE ADVISER Active TERBINAFINE HCL 250 MG ORAL TABLET 1 qDay for nail fungus 7 TERBINAFINE HCL 13469564017 No Longer Active Carlton Hu MD A ctive AMOXICILLIN 500 MG ORAL CAPSULE 1 cap by mouth three times a day AMOXICILLIN 78640043682 No Longer Active Carlton Hu MD Active ELMIRON 100 MG ORAL CAPSULE 2 tablets in the am and 1 tablet at hs PENTOSAN POLYSULFATE SODIUM 03043018354 No Longer Active Robert jade Hu MD Active MUCINEX D 60-600 MG ORAL TABLET EXTENDED RELEASE 12 HOUR 1 t ab po q am PSEUDOEPHEDRINE-GUAIFENESIN 57379526988 No Longer Act nael Carlton Hu MD Active MUCINEX DM MAXIMUM STRENGTH 60-1200 MG ORAL TABLET EXT ENDED RELEASE 12 HOUR 1 tab po q am DEXTROMETHORPHAN-GUAIFENESIN 71136222662 No Longer Active Carlton Hu MD Active TUSSIONEX PENNKINETIC ER 10-8 MG/5ML ORAL SUSPENSION E XTENDED RELEASE 5ml po q12hr PRN Cough HYDROCOD POLST-CHLORPHEN POLST 5 7993818376 No Longer Active Carlton Hu MD Active POTASSIUM CHLORIDE ER 20 MEQ ORAL TABLET EXTENDED RELE ASE Take 1 by mouth 4 times daily for 7 days POTASSIUM CHLORIDE 03157655943 No Longer Active Carlton Hu MD Active ZITHROMAX 250 MG ORAL TABLET 2 po today, then 1 po q days 2-5 20 14/09/04 AZITHROMYCIN 25979648897 No Longer Active Elise Areseema FARM SERVICE ADVISER Active TUSSIONEX PENNKINETIC ER 10-8 MG/5ML ORAL SUSPENSION E XTENDED RELEASE 5 ml twice a day as needed for cough HYDROCOD POLST-CHLORPH EN POLST 88240739711 No Longer Active Elise Garcia APRN Active MONTELUKAST SODIUM 10 MG ORAL TABLET 1 po daily for Allergy MONTELUKAST SODIUM 69607833803 Active Carlton Hu MD Ac tive TUSSIONEX PENNKINETIC ER 10-8 MG/5ML ORAL SUSPENSION E XTENDED RELEASE 5ml po q12hr PRN Cough HYDROCOD POLST-CHLORPHEN POLST 5 1447910252 No Longer Active Hugo Restrepo MD Active GABAPENTIN 100 MG ORAL CAPSULE 1 po BID for fibromyalgia GABAPENTIN 21156667932 Active ALFREDO Holly Active LYRICA 100 MG ORAL CAPSULE Take 1 tab po BID for fibromyalgia 20 11/08/21 PREGABALIN 36163132612 No Longer Active Elise Garcia APRN A ctive PREDNISONE 20 MG ORAL TABLET 2 tabs daily for 3 days, 1 tab daily for 3 days, 1/2 tab daily for 2 days PREDNISONE 82640075321 No Longer Active Astridina Gege KHAN Active TUSSIONEX PENNKINETIC ER 10-8 MG/5ML ORAL SUSPENSION E XTENDED RELEASE 5 mL PO q 12 hrs PRN cough HYDROCOD POLST-CHLORPHEN POLST 677387 81297 No Longer Active Jillina Frazell FARM SERVICE ADVISER Active FLUTICASONE PROPIONATE 50 MCG/ACT NASAL SUSPENSION 2 s prays each nostril daily until bottle is empty FLUTICASONE PROPIONATE 960967379 99 No Longer Active Jillina Frazell FARM SERVICE ADVISER Active ASMANEX 60 METERED DOSES 220 MCG/INH INHALATION AEROSO L POWDER BREATH ACTIVATED 1 puff bid with rinse after MOMETASONE FUROATE 9468599 4102 No Longer Active Jillina Frazell FARM SERVICE ADVISER Active ZITHROMAX Z-REYNA 250 MG ORAL TABLET 2 today, then 1 daily for 4 d ays AZITHROMYCIN 13702443373 No Longer Active Elise Garcia APRN Active TUSSIONEX PENNKINETIC ER 10-8 MG/5ML ORAL SUSPENSION E XTENDED RELEASE 5ml po q12hr PRN Cough HYDROCOD POLST-CHLORPHEN POLST 5 0295289227 No Longer Active Elise Garcia APRN Active PREDNISONE 20 MG ORAL TABLET 2 tabs daily for 3 days, 1 tab daily for 3 days, 1/2 tab daily for 2 days PREDNISONE 96054640756 No Longer Active Diya De Guzman APRN Active AMOXICILLIN 500 MG ORAL CAPSULE 2 po BID x 10 days 201 09/29/08 AMOXICILLIN 93246278633 No Longer Active Diya De Guzman APRN Act nael SINGULAIR 10 MG ORAL TABLET 1 po qday for allergies 20 14/01/12 MONTELUKAST SODIUM 01447835636 No Longer Active Carlton Hu MD Active LEVAQUIN 500 MG ORAL TABLET 1 tablet by mouth daily 20 13/09/24 LEVOFLOXACIN 97762389654 No Longer Active Carlton Hu MD Acti ve FLUTICASONE PROPIONATE 50 MCG/ACT NASAL SUSPENSION 2 s prays each nostril daily for 2 weeks, then 1 spray each nostril daily. FLUTICASONE PROPIONATE 04349421059 Active Carlton Hu MD Active ZITHROMAX 250 MG ORAL TABLET 2 po today, then 1 po q days 2-5 20 13/08/10 AZITHROMYCIN 98117749145 No Longer Active Elise Garcia APRN Active XANAX 0.5 MG ORAL TABLET one tablet by mouth daily prn anxiety 2015 ALPRAZOLAM 22351825091 Active ALFREDO Holly Active CEFDINIR 300 MG ORAL CAPSULE 1 po BID x 10 days CEFDINIR 84850595794 No Longer Active Carlton Hu MD Active ZOCOR 40 MG ORAL TABLET 1 tab by mouth daily SI MVASTATIN 78127059011 No Longer Active Carlton Hu MD Active CYCLOBENZAPRINE HCL 10 MG ORAL TABLET 1 tablet by mouth BID prn had pain CYCLOBENZAPRINE HCL 73224446187 No Longer Active Jayden Hu MD Active LEVOFLOXACIN 500 MG ORAL TABLET 1 tab PO daily x 10 days LEVOFLOXACIN 32864998229 No Longer Active Carlton Hu MD Acti ve PREDNISONE 20 MG ORAL TABLET 3 tab PO qd x 2d, 2 tab P O qd x 2d, 1 tab PO qd x 2d, 1/2 tab PO qd x 2d PREDNISONE 32162055160 No Lo nger Active Carlton Hu MD Active FLUTICASONE PROPIONATE 50 MCG/ACT NASAL SUSPENSION 1 t o 2 sprays each nostril daily FLUTICASONE PROPIONATE 63701747896 No Longer Ac tive Blaine HERNANDEZ Active CHERATUSSIN AC 100-10 MG/5ML ORAL SYRUP 1 tsp by mouth every 4 hours as needed for cough GUAIFENESIN-CODEINE 25264511202 No Longe r Active Blaine HERNANDEZ Active PROMETHAZINE-CODEINE 6.25-10 MG/5ML ORAL SYRUP 1 tsp b y mouth every 6 hours if needed for cough PROMETHAZINE-CODEINE 49368741332 No Longer Active Blaine HERNANDEZ Active CHERATUSSIN AC 100-10 MG/5ML ORAL SYRUP 1 tsp by mouth every 4 hours as needed for cough GUAIFENESIN-CODEINE 70040146910 No Longe r Active Blaine HERNANDEZ Active ZITHROMAX Z-REYNA 250 MG ORAL TABLET 2 today, then 1 daily for 4 d ays AZITHROMYCIN 45344045213 No Longer Active Columba Adhikari nael ZITHROMAX 250 MG ORAL TABLET 2 po today, then 1 po q days 2-5 20 14/03/21 AZITHROMYCIN 51364252988 No Longer Active Carlton Hu MD Active ZITHROMAX Z-REYNA 250 MG ORAL TABLET 2 today, then 1 daily for 4 d ays AZITHROMYCIN 34838272677 No Longer Active Columba Parrish Act nael AUGMENTIN 875-125 MG ORAL TABLET 1 po BID x 10 days 13/01/20 AMOXICILLIN-POT CLAVULANATE 93304566922 No Longer Active Diya Sernabaryan KHAN Active ZITHROMAX 250 MG ORAL TABLET 2 po today, then 1 po q days 2-5 20 12/08/14 AZITHROMYCIN 17769536501 No Longer Active Carlton Hu MD Active TRAMADOL HCL 50 MG ORAL TABLET 1 po tid with ES Tylenol TRAMADOL HCL 07964156377 Active Carlton Hu MD Active PREMARIN 0.625 MG ORAL TABLET TAKE 1 TAB BY MOUTH DAILY ESTROGENS CONJUGATED 64627242490 No Longer Active Ridge Bess DO A ctive CYMBALTA 30 MG ORAL CAPSULE DELAYED RELEASE PARTICLES 1 cap by mouth daily DULOXETINE HCL 17816690908 No Longer Active Ridge tam DO Active AMOXICILLIN 500 MG ORAL CAPSULE 1 tab by mouth 3 times daily x 10 days AMOXICILLIN 41650617695 No Longer Active Carlton bustamante MD Active AMOXICILLIN 500 MG ORAL CAPSULE 1 tab by mouth 3 times daily x 10 days AMOXICILLIN 51597327566 No Longer Active Carlton bustamante MD Active PROMETHAZINE-CODEINE 6.25-10 MG/5ML ORAL SYRUP 1 tsp b y mouth every 8 hours prn cough PROMETHAZINE-CODEINE 28131846170 No Longer Acti ve Carlton Hu MD Active MEDROL 4 MG ORAL TABLET THERAPY PACK 6 pills x 1 day, then 5 pills x 1 day then 4 pills x 1 day, then 3 pills x 1 day, then 2 pills x 1 day, then 1 pill x 1 day, then stop METHYLPREDNISOLONE 97189962460 No Long er Active Perez Mora MD Active AZITHROMYCIN 250 MG ORAL TABLET 2 po qd x 1 day, then 1 po q d x 4 days AZITHROMYCIN 44706391285 No Longer Active Perez Ambriz MD Active SYMBICORT 160-4.5 MCG/ACT INHALATION AEROSOL 2 puffs bid wit h rinse after BUDESONIDE-FORMOTEROL FUMARATE 88969849138 N o Longer Active Perez Mora MD Active LYRICA 75 MG ORAL CAPSULE TAKE 1 CAPSULE BY MOUTH TWICE DAILY PREGABALIN 74944488649 No Longer Active Carlton Hu MD Acti ve TOPAMAX 25 MG ORAL TABLET 1 qHS x 1 week, then 1 BID x 1 week, then 1 qAM and 2 qHS x 1 week, then 2 BID (migraine prevention) T OPIRAMATE 43879591645 No Longer Active Jerica FUENTES Active TOPAMAX 50 MG ORAL TABLET take 1 tab po BID for migraines. 07/02 TOPIRAMATE 58300403452 No Longer Active Jerica FUENTES Active TRIAMCINOLONE ACETONIDE 0.1 % EXTERNAL CREAM apply three roger es daily prn rash TRIAMCINOLONE ACETONIDE 88067926385 No Longer Active Carlton Hu MD Active PAXIL 40 MG ORAL TABLET take 1 tab po qday for depression 0 PAROXETINE HCL 02907699214 Active Carlton Hu MD Active CHERATUSSIN AC 100-10 MG/5ML ORAL SYRUP 5ml po q6hr PRN Cough 20 13/04/14 GUAIFENESIN-CODEINE 94240987034 No Longer Active Carlton Hu MD Active MEDROL 4 MG ORAL TABLET THERAPY PACK 6 tabs on day 1, 5 tabs on day 2, 4 tabs on day 3, 3 tabs on day 4, 2 tabs on day 5, 1 tab on day 6 2013 METHYLPREDNISOLONE 90097419007 No Longer Active Perez Mora MD Active AZITHROMYCIN 250 MG ORAL TABLET 2 po qd x 1 day, then 1 po q d x 4 days AZITHROMYCIN 38237730383 No Longer Active Perez Ambriz MD Active PROPRANOLOL HCL 60 MG ORAL TABLET 1 PO Q D PROPRANOLOL HCL 12233709956 No Longer Active Perez Mora MD Activ e CHERATUSSIN AC 100-10 MG/5ML ORAL SYRUP take one tsp po Q 6h ours prn cough GUAIFENESIN-CODEINE 91657745719 No Longer Active Zia Mora MD Active AUGMENTIN 875-125 MG ORAL TABLET 1 tab by mouth twice daily with food AMOXICILLIN-POT CLAVULANATE 11438482715 No Longer Act nael Perez Mora MD Active CHERATUSSIN AC 100-10 MG/5ML ORAL SYRUP 1 tsp by mouth every 4 hours as needed for cough GUAIFENESIN-CODEINE 02123292966 No Longe r Active Hugo Restrepo MD Active ACETAMINOPHEN-CODEINE #3 300-30 MG ORAL TABLET 1 PO Q 4-6 HRS SD N PAIN ACETAMINOPHEN-CODEINE 32761694749 No Longer Active Hugo Restrepo MD Active LEVAQUIN 500 MG ORAL TABLET take one po QD LEVO FLOXACIN 82789746074 No Longer Active Griffin HERNANDEZ Active PREDNISONE 20 MG ORAL TABLET Take 3 tabs daily for 3 d ays, 2 tabs daily for 3 days, 1 tab daily for 3 days, 1/2 tab daily for 3 days 11/07 PREDNISONE 81869548027 No Longer Active Carlton Hu MD Acti ve AVELOX 400 MG ORAL TABLET 1 tab by mouth daily MOXIFLOXACIN HCL 90745131496 No Longer Active Carlton Hu MD Active CHERATUSSIN AC 100-10 MG/5ML ORAL SYRUP 1 tsp by mouth every 4 hours as needed for cough GUAIFENESIN-CODEINE 64387365373 No Longe r Active Hugo Restrepo MD Active AVELOX 400 MG ORAL TABLET 1 tab by mouth daily MOXIFLOXACIN HCL 14280528821 No Longer Active Marcy De La Rosa MD PhD Active TERBINAFINE HCL 250 MG ORAL TABLET 1 qDay T ERBINAFINE HCL 86292039489 No Longer Active Marcy De La Rosa MD PhD Active CHERATUSSIN AC 100-10 MG/5ML ORAL SYRUP 1 tsp by mouth every 4 hours as needed for cough GUAIFENESIN-CODEINE 47588258684 No Longe r Active Marcy De La Rosa MD PhD Active AVELOX 400 MG ORAL TABLET 1 tab by mouth daily MOXIFLOXACIN HCL 09884503086 No Longer Active Marcy De La Rosa MD PhD Active HYDROCODONE-ACETAMINOPHEN 5-325 MG ORAL TABLET 1 po q 6hr PRN co ugh HYDROCODONE-ACETAMINOPHEN 87988674489 No Longer Active Marcy De La Rosa MD PhD Active PREDNISONE 20 MG ORAL TABLET 2 tabs daily for 3 days, 1 tab daily for 3 days, 1/2 tab daily for 2 days PREDNISONE 59043464397 No Longer Active Carlton Hu MD Active CEFDINIR 300 MG ORAL CAPSULE by mouth twice a day 2011 CEFDINIR 91296502243 No Longer Active Carlton Hu MD Acti ve HYDROCHLOROTHIAZIDE 25 MG ORAL TABLET 1 TAB PO DAILY HYDROCHLOROTHIAZIDE 78049968147 Active Carlton Hu MD A ctive ACETAMINOPHEN-CODEINE #3 300-30 MG ORAL TABLET 1 tablet po q 4-6 hrs prn pain ACETAMINOPHEN-CODEINE 11203781136 No Longer Active Ridge Bess DO Active ZITHROMAX 250 MG ORAL TABLET 2 po today, then 1 po q days 2-5 20 03/07/07 AZITHROMYCIN 79203239860 No Longer Active Carlton Hu MD Active CHERATUSSIN AC 100-10 MG/5ML ORAL SYRUP take 1 tsp po q4-6 h ours prn cough GUAIFENESIN-CODEINE 63628099755 No Longer Active Jayden Hu MD Active ACETAMINOPHEN-CODEINE #3 300-30 MG ORAL TABLET 1 PO Q 4-6 HR PRN PAIN ACETAMINOPHEN-CODEINE 16888684556 No Longer Active Arnol Hu MD Active LORTAB 7.5-500 MG/15ML ORAL ELIXIR 7.5 ml po q 4 hour prn cough HYDROCODONE-ACETAMINOPHEN 82467000226 No Longer Active Carlton Hu MD Active PREDNISONE 20 MG ORAL TABLET 1 po bid 3 days, then 1 po q day 3 days PREDNISONE 47805413751 No Longer Active Carlton Hu MD Active CEFDINIR 300 MG ORAL CAPSULE by mouth twice a day 2011 CEFDINIR 30276223078 No Longer Active Carlton Hu MD Acti ve CEFDINIR 300 MG ORAL CAPSULE by mouth twice a day 2010 CEFDINIR 92808208937 No Longer Active Carlton Hu MD Acti ve CEFDINIR 300 MG ORAL CAPSULE by mouth twice a day 2010 CEFDINIR 19463325120 No Longer Active Carlton Hu MD Acti ve TESSALON PERLES 100 MG ORAL CAPSULE 1 tablet by mouth 3 times daily as needed for cough BENZONATATE 06432523804 No Longer Active Carlton Hu MD Active CEFDINIR 300 MG ORAL CAPSULE by mouth twice a day 2010 CEFDINIR 50669403348 No Longer Active Carlton Hu MD Acti ve ZITHROMAX Z-REYNA 250 MG ORAL TABLET 2 today, then 1 daily for 4 d ays AZITHROMYCIN 14943322347 No Longer Active Hugo Restrepo MD Active TESSALON PERLES 100 MG ORAL CAPSULE 1 tablet by mouth 3 times daily as needed for cough TESSALON PERLES 100 MG ORAL CAPSULE 91153 7 BENZONATATE Inactive PREDNISONE 20 MG ORAL TABLET 1 po bid 3 days, then 1 po q day 3 days PREDNISONE 20 MG ORAL TABLET 061171 PREDNISONE Greer ctive LORTAB 7.5-500 MG/15ML ORAL [...] cough CHERATUSSIN AC 100-10 MG/5ML ORAL SYRUP 193598 GUAIFENESIN-CODEINE Inactive ACETAMINOPHEN-CODEINE #3 300-30 MG ORAL TABLET 1 tablet po q 4-6 hrs prn pain ACETAMINOPHEN-CODEINE #3 300-30 MG ORAL TABLET ACETAMINOPHEN-CODEINE Inactive HYDROCODONE-ACETAMINOPHEN 5-325 MG ORAL TABLET 1 po q 6hr PRN co ugh HYDROCODONE-ACETAMINOPHEN 5-325 MG ORAL TABLET 780477 HYDROCODONE-ACETAMINOPHEN Inactive AVELOX 400 MG ORAL TABLET 1 tab by mouth daily AVELOX 400 MG ORAL TABLET 357331 MOXIFLOXACIN HCL Inactive CHERATUSSIN AC 100-10 MG/5ML ORAL SYRUP 1 tsp by mouth every 4 hours as needed for cough CHERATUSSIN AC 100-10 MG/5ML ORAL SYRUP 9 58727 GUAIFENESIN-CODEINE Inactive TERBINAFINE HCL 250 MG ORAL TABLET 1 qDay 07/08 TERBINAFINE HCL 250 MG ORAL TABLET 260649 TERBINAFINE HCL Inactive CHERATUSSIN AC 100-10 MG/5ML ORAL SYRUP 1 tsp by mouth every 4 hours as needed for cough CHERATUSSIN AC 100-10 MG/5ML ORAL SYRUP 9 49870 GUAIFENESIN-CODEINE Inactive ACETAMINOPHEN-CODEINE #3 300-30 MG ORAL TABLET 1 PO Q 4-6 HRS SD N PAIN ACETAMINOPHEN-CODEINE #3 300-30 MG ORAL TABLET ACETAMINOPHEN-CODEINE Inactive CHERATUSSIN AC 100-10 MG/5ML ORAL SYRUP 1 tsp by mouth every 4 hours as needed for cough CHERATUSSIN AC 100-10 MG/5ML ORAL SYRUP 9 41383 GUAIFENESIN-CODEINE Inactive AUGMENTIN 875-125 MG ORAL TABLET 1 tab by mouth twice daily with food AUGMENTIN 875-125 MG ORAL TABLET AMOXICIL MADELINE-POT CLAVULANATE Inactive CHERATUSSIN AC 100-10 MG/5ML ORAL SYRUP take one tsp po Q 6h ours prn cough CHERATUSSIN AC 100-10 MG/5ML ORAL SYRUP 066719 GUAIFENESIN-CODEINE Inactive PROPRANOLOL HCL 60 MG ORAL TABLET 1 PO Q D PROPRANOLOL HCL 60 MG ORAL TABLET 606715 PROPRANOLOL HCL Inactive TOPAMAX 50 MG ORAL TABLET take 1 tab po BID for migraines. 07/02 TOPAMAX 50 MG ORAL TABLET 688687 TOPIRAMATE Inacti ve TOPAMAX 25 MG ORAL TABLET 1 qHS x 1 week, then 1 BID x 1 week, then 1 qAM and 2 qHS x 1 week, then 2 BID (migraine prevention) TOPAMAX 25 MG ORAL TABLET 578970 TOPIRAMATE Inactive LYRICA 75 MG ORAL CAPSULE TAKE 1 CAPSULE BY MOUTH TWICE DAILY LYRICA 75 MG ORAL CAPSULE PREGABALIN Inactive SYMBICORT 160-4.5 MCG/ACT INHALATION AEROSOL 2 puffs bid wit h rinse after SYMBICORT 160-4.5 MCG/ACT INHALATION AEROSOL BUDESONIDE- FORMOTEROL FUMARATE Inactive PROMETHAZINE-CODEINE 6.25-10 MG/5ML ORAL SYRUP 1 tsp b y mouth every 8 hours prn cough PROMETHAZINE-CODEINE 6.25-10 MG/ 5ML ORAL SYRUP 397325 PROMETHAZINE-CODEINE Inactive CYMBALTA 30 MG ORAL CAPSULE DELAYED RELEASE PARTICLES 1 cap by mouth daily CYMBALTA 30 MG ORAL CAPSULE DELAYED RELE ASE PARTICLES 378944 DULOXETINE HCL Inactive PREMARIN 0.625 MG ORAL TABLET TAKE 1 TAB BY MOUTH DAILY PREMARIN 0.625 MG ORAL TABLET ESTROGENS CONJUGATED Inactive CHERATUSSIN AC 100-10 MG/5ML ORAL SYRUP 1 tsp by mouth every 4 hours as needed for cough CHERATUSSIN AC 100-10 MG/5ML ORAL SYRUP 9 77295 GUAIFENESIN-CODEINE Inactive PROMETHAZINE-CODEINE 6.25-10 MG/5ML ORAL SYRUP 1 tsp b y mouth every 6 hours if needed for cough PROMETHAZINE-CODEINE 6.25-10 MG/5ML ORAL SYRUP 619749 PROMETHAZINE-CODEINE Inactive CHERATUSSIN AC 100-10 MG/5ML ORAL SYRUP 1 tsp by mouth every 4 hours as needed for cough CHERATUSSIN AC 100-10 MG/5ML ORAL SYRUP 9 01253 GUAIFENESIN-CODEINE Inactive FLUTICASONE PROPIONATE 50 MCG/ACT NASAL SUSPENSION 1 t o 2 sprays each nostril daily FLUTICASONE PROPIONATE 50 MCG/AC T NASAL SUSPENSION 0379142 FLUTICASONE PROPIONATE Inactive PREDNISONE 20 MG ORAL TABLET 3 tab PO qd x 2d, 2 tab P O qd x 2d, 1 tab PO qd x 2d, 1/2 tab PO qd x 2d PREDNISONE 20 MG ORAL TAB LET 506368 PREDNISONE Inactive LEVOFLOXACIN 500 MG ORAL TABLET 1 tab PO daily x 10 days LEVOFLOXACIN 500 MG ORAL TABLET 432821 LEVOFLOXACIN Inactive CYCLOBENZAPRINE HCL 10 MG ORAL TABLET 1 tablet by mouth BID prn had pain CYCLOBENZAPRINE HCL 10 MG ORAL TABLET 087172 CYCLOBENZAPRINE HCL Inactive ZOCOR 40 MG ORAL TABLET 1 tab by mouth daily 4 ZOCOR 40 MG ORAL TABLET 968883 SIMVASTATIN Inactive TUSSIONEX PENNKINETIC ER 10-8 MG/5ML [...] FLUTICASONE PROPIO EFE 50 MCG/ACT NASAL SUSPENSION 1777186 FLUTICASONE PROPIONATE Inactive TUSSIONEX PENNKINETIC ER 10-8 [...] three days PREDNISONE 20 MG ORAL TABLET 547457 PREDNIS ONE Inactive PROAIR HFA 108 (90 BASE) MCG/ACT INHALATION AEROSOL SO LUTION 2 puffs four times a day as needed PROAIR HFA 108 (90 B ASE) MCG/ACT INHALATION AEROSOL SOLUTION ALBUTEROL SULFATE Inactive PREDNISONE 20 MG ORAL TABLET two tabs by mouth today, then one tab by mouth days two and three and four PREDNISONE 20 MG ORAL TAB LET 922959 PREDNISONE Inactive TUSSIONEX PENNKINETIC ER 10-8 MG/5ML [...] bid 04/20 TOPAMAX 100 MG ORAL TABLET 641582 TOPIRAMATE Inactive CYMBALTA 30 MG ORAL CAPSULE DELAYED RELEASE PARTICLES 1 cap by mouth daily for depression CYMBALTA 30 MG ORAL CAPSULE DELAYED RELEASE PARTICLES 817724 DULOXETINE HCL Inactive ZITHROMAX Z-REYNA 250 MG ORAL TABLET 2 today, then 1 daily for 4 d ays ZITHROMAX Z-REYNA 250 MG ORAL TABLET 987322 AZITHROMYCIN Inactive CEFDINIR 300 MG ORAL CAPSULE by mouth twice a day 2010 CEFDINIR 300 MG ORAL CAPSULE 20020704 CEFDINIR Inactive CEFDINIR 300 MG ORAL CAPSULE by mouth twice a day 2010 CEFDINIR 300 MG ORAL CAPSULE 548260 CEFDINIR Inactive CEFDINIR 300 MG ORAL CAPSULE by mouth twice a day 2010 CEFDINIR 300 MG ORAL CAPSULE 006620 CEFDINIR Inactive CEFDINIR 300 MG ORAL CAPSULE by mouth twice a day 2011 CEFDINIR 300 MG ORAL CAPSULE 204479 CEFDINIR Inactive ZITHROMAX 250 MG ORAL TABLET 2 po today, then 1 po q days 2-5 20 03/07/07 ZITHROMAX 250 MG ORAL TABLET 366633 AZITHROMYCIN Artesian ctive CEFDINIR 300 MG ORAL CAPSULE by mouth twice a day 2011 CEFDINIR 300 MG ORAL CAPSULE 20020704 CEFDINIR Inactive PREDNISONE 20 MG ORAL TABLET 2 tabs daily for 3 days, 1 tab daily for 3 days, 1/2 tab daily for 2 days PREDNISONE 20 MG ORAL T ABLET 523897 PREDNISONE Inactive AVELOX 400 MG ORAL TABLET 1 tab by mouth daily AVELOX 400 MG ORAL TABLET 815454 MOXIFLOXACIN HCL Inactive AVELOX 400 MG ORAL TABLET 1 tab by mouth daily AVELOX 400 MG ORAL TABLET 827842 MOXIFLOXACIN HCL Inactive PREDNISONE 20 MG ORAL TABLET Take 3 tabs daily for 3 d ays, 2 tabs daily for 3 days, 1 tab daily for 3 days, 1/2 tab daily for 3 days 11/07 PREDNISONE 20 MG ORAL TABLET 290285 PREDNISONE Inactive LEVAQUIN 500 MG ORAL TABLET take one po QD LEVAQUIN 500 MG ORAL TABLET 715401 LEVOFLOXACIN Inactive AZITHROMYCIN 250 MG ORAL TABLET 2 po qd x 1 day, then 1 po q d x 4 days AZITHROMYCIN 250 MG ORAL TABLET 444121 AZITHROMY GIOVANNI Inactive MEDROL 4 MG ORAL TABLET THERAPY PACK 6 tabs on day 1, 5 tabs on day 2, 4 tabs on day 3, 3 tabs on day 4, 2 tabs on day 5, 1 tab on day 6 2013 MEDROL 4 MG ORAL TABLET THERAPY PACK [id number] METHYLPREDNISOLONE Greer ctive CHERATUSSIN AC 100-10 MG/5ML ORAL SYRUP 5ml po q6hr PRN Cough 20 13/04/14 CHERATUSSIN AC 100-10 MG/5ML ORAL SYRUP [id number] GUAIFENE SIN-CODEINE Inactive TRIAMCINOLONE ACETONIDE 0.1 % EXTERNAL CREAM apply three roger es daily prn rash TRIAMCINOLONE ACETONIDE 0.1 % EXTERNAL CREAM 101 4314 TRIAMCINOLONE ACETONIDE Inactive AZITHROMYCIN 250 MG ORAL TABLET 2 po qd x 1 day, then 1 po q d x 4 days AZITHROMYCIN 250 MG ORAL TABLET [id number] AZITHROMY GIOVANNI Inactive MEDROL 4 MG ORAL TABLET THERAPY PACK 6 pills x 1 day, then 5 pills x 1 day then 4 pills x 1 day, then 3 pills x 1 day, then 2 pills x 1 day, then 1 pill x 1 day, then stop MEDROL 4 MG ORAL TABLET THERAPY PACK [id number] METHYLPREDNISOLONE Inactive AMOXICILLIN 500 MG ORAL CAPSULE 1 tab by mouth 3 times daily x 10 days AMOXICILLIN 500 MG ORAL CAPSULE 833693 AMOXICILL IN Inactive AMOXICILLIN 500 MG ORAL CAPSULE 1 tab by mouth 3 times daily x 10 days AMOXICILLIN 500 MG ORAL CAPSULE 697891 AMOXICILL IN Inactive ZITHROMAX 250 MG ORAL TABLET 2 po today, then 1 po q days 2-5 20 12/08/14 ZITHROMAX 250 MG ORAL TABLET 201299 AZITHROMYCIN Greer ctive AUGMENTIN 875-125 MG ORAL TABLET 1 po BID x 10 days 13/01/20 AUGMENTIN 875-125 MG ORAL TABLET AMOXICILLIN-POT CLAVULANATE Inactive ZITHROMAX Z-REYNA 250 MG ORAL TABLET 2 today, then 1 daily for 4 d ays ZITHROMAX Z-REYNA 250 MG ORAL TABLET 083595 AZITHROMYCIN Inactive ZITHROMAX 250 MG ORAL TABLET 2 po today, then 1 po q days 2-5 20 14/03/21 ZITHROMAX 250 MG ORAL TABLET 231925 AZITHROMYCIN Greer ctive ZITHROMAX Z-REYNA 250 MG ORAL TABLET 2 today, then 1 daily for 4 d ays ZITHROMAX Z-REYNA 250 MG ORAL TABLET 146679 AZITHROMYCIN Inactive CEFDINIR 300 MG ORAL CAPSULE 1 po BID x 10 days 06/21 CEFDINIR 300 MG ORAL CAPSULE 865032 CEFDINIR Inactive ZITHROMAX 250 MG ORAL TABLET 2 po today, then 1 po q days 2-5 20 13/08/10 ZITHROMAX 250 MG ORAL TABLET 907676 AZITHROMYCIN Greer ctive LEVAQUIN 500 MG ORAL TABLET 1 tablet by mouth daily 20 13/09/24 LEVAQUIN 500 MG ORAL TABLET 176950 LEVOFLOXACIN Inactive SINGULAIR 10 MG ORAL TABLET 1 po qday for allergies 20 14/01/12 SINGULAIR 10 MG ORAL TABLET 20010504 MONTELUKAST SODIUM Inactive AMOXICILLIN 500 MG ORAL CAPSULE 2 po BID x 10 days 201 09/29/08 AMOXICILLIN 500 MG ORAL CAPSULE 181060 AMOXICILLIN Inactive PREDNISONE 20 MG ORAL TABLET 2 tabs daily for 3 days, 1 tab daily for 3 days, 1/2 tab daily for 2 days PREDNISONE 20 MG ORAL T ABLET 296302 PREDNISONE Inactive ZITHROMAX Z-REYNA 250 MG ORAL TABLET 2 today, then 1 daily for 4 d ays ZITHROMAX Z-REYNA 250 MG ORAL TABLET 357903 AZITHROMYCIN Inactive PREDNISONE 20 MG ORAL TABLET 2 tabs daily for 3 days, 1 tab daily for 3 days, 1/2 tab daily for 2 days PREDNISONE 20 MG ORAL T ABLET 450813 PREDNISONE Inactive ZITHROMAX 250 MG ORAL TABLET 2 po today, then 1 po q days 2-5 20 14/09/04 ZITHROMAX 250 MG ORAL TABLET 505481 AZITHROMYCIN Greer ctive AMOXICILLIN 500 MG ORAL CAPSULE 1 cap by mouth three times a day AMOXICILLIN 500 MG ORAL CAPSULE 084965 AMOXICILLIN Inactive TERBINAFINE HCL 250 MG ORAL TABLET 1 qDay for nail fungus 7 TERBINAFINE HCL 250 MG ORAL TABLET 730376 TERBINAFINE HCL Inact nael AUGMENTIN 875-125 MG ORAL TABLET 1 po BID x 10 days 16/03/22 AUGMENTIN 875-125 MG ORAL TABLET AMOXICILLIN-POT CLAVULANATE Inactive PREDNISONE 20 MG ORAL TABLET 2 po qd x 5 days PREDNISONE 20 MG ORAL TABLET 977736 PREDNISONE Inactive AZITHROMYCIN 250 MG ORAL TABLET 2 po qd x 1 day, then 1 po q d x 4 days AZITHROMYCIN 250 MG ORAL TABLET 098051 AZITHROMY GIOVANNI Inactive PREDNISONE 50 MG ORAL TABLET Take 50 mg dialy for 6 day s 7 PREDNISONE 50 MG ORAL TABLET 480975 PREDNISONE Inactive AUGMENTIN 875-125 MG ORAL TABLET 1 po BID x 10 days 18/04/16 AUGMENTIN 875-125 MG ORAL TABLET AMOXICILLIN-POT CLAVULANATE Inactive DOXYCYCLINE HYCLATE 100 MG ORAL CAPSULE 1 cap by mouth twice latasha ly DOXYCYCLINE HYCLATE 100 MG ORAL CAPSULE 8540108 DOXYCYCL INE HYCLATE Inactive PREDNISONE 20 MG ORAL TABLET Take 2 tabs day 1 and 2 and 1 t ab days 3 and 4 PREDNISONE 20 MG ORAL TABLET 752526 PREDNISONE Inactive AMOXICILLIN 500 MG ORAL CAPSULE 1 cap by mouth twice daily 10/21 AMOXICILLIN 500 MG ORAL CAPSULE 680348 AMOXICILLIN Inactive TRIAMCINOLONE ACETONIDE 0.1 % EXTERNAL OINTMENT Apply to affected areas TID PRN Rash/Itching for up 2 weeks TRIAMCINOLON E ACETONIDE 0.1 % EXTERNAL OINTMENT [id number] TRIAMCINOLONE ACETONIDE Inactive Vital Signs Date Name Value Unit [...] - Chem istry sodium, serum 139 mmol/L [phone]/10/12 potassium, serum 3.8 mmol/L 3.5-5.2 chloride, serum [...] negative Encounters Code Encounter Date Provider Facility CPT-20427 Level 3 Est. Patient 13:57:55 CDT David lion [facility] CPT-05985 Level 3 Est. Patient 16:08:07 VINAYT David lion [facility] CPT-00152 Level 3 Est. Patient 16:53:54 VINAYT May haas MD [facility] CPT-39395 [id number] Vst-Est Level IV 08:41:08 Jadon Santos MD [facility] CPT-95805 Level 3 Est. Patient 09:46:49 DIE MAKER APPRENTICE David Antonino riveralidia [facility] CPT-15001 [id number] Vst-Est Level III 11:12:16 CDT Yanet Bess DO [facility] CPT-03700 Level 3 Est. Patient 11:34:49 DIE MAKER APPRENTICE Perez Mora MD [facility] CPT-81100 Level 4 Est. Patient 09:51:32 DIE MAKER APPRENTICE Carlton rich MD [facility] CPT-43447 Level 3 Est. Patient 10:26:00 DIE MAKER APPRENTICE Elise Are [facility] CPT-13063 Level 3 Est. Patient 13:35:41 DIE MAKER APPRENTICE Carlton rich MD [facility] CPT-27822 Level 3 Est. Patient 10:03:52 DIE MAKER APPRENTICE Carlton rich MD [facility] CPT-45547 Level 3 Est. Patient 12:17:50 CDT Hugo Restrepo MD [facility] CPT-57701 Level 3 Est. Patient 13:42:38 CDT Elise Are [facility] CPT-10126 Level 3 Est. Patient 13:23:51 CDT Diya cobian [facility] CPT-52843 Level 3 Est. Patient 14:22:19 DIE MAKER APPRENTICE Diya cobian [facility] CPT-45740 Level 3 Est. Patient 10:11:46 CDT Carlton rich MD [facility] CPT-91641 Level 3 Est. Patient 17:29:43 CDT Elise Are [facility] CPT-86520 Level 3 Est. Patient 11:58:06 CDT Elise Are [facility] CPT-54204 Level 4 Est. Patient 14:36:51 CDT Carlton rich MD [facility] CPT-33123 Level 3 Est. Patient 18:16:00 DIE MAKER APPRENTICE Blaine W Cloven [facility] CPT-01149 Level 3 Est. Patient 09:45:49 DIE MAKER APPRENTICE Carlotn rich MD [facility]-37359 Level 3 Est. Patient 13:19:20 CDT Carlton rich MD [facility]-19798 Level 3 Est. Patient 13:06:43 CDT Ridge tam DO [facility] CPT-52969 Level 3 Est. Patient 10:03:07 CDT Perez Mora MD [facility]-42291 Level 3 Est. Patient 19:50:35 DIE MAKER APPRENTICE Carlton rich MD [facility]-02907 Level 4 Est. Patient 18:05:01 DIE MAKER APPRENTICE Carlton rich MD [facility]-14397 Level 3 Est. Patient 10:45:55 DIE MAKER APPRENTICE Hugo Restrepo MD [facility]-76913 Level 3 Est. Patient 14:12:49 CDT Griffin lincoln [facility]-71138 Level 3 Est. Patient 17:37:24 CDT Carlton rich MD [facility]-14965 Level 3 Est. Patient 16:51:54 CDT Carlton rich MD [facility]-55470 Level 3 Est. Patient 12:18:11 CDT Hugo Restrepo MD [facility]-22739 Level 3 Est. Patient 11:30:25 CDT Marcy crisostomo MD PhD [facility]-61683 Level 3 Est. Patient 12:00:47 DIE MAKER APPRENTICE Carlton rich MD [facility]-51579 Level 3 Est. Patient 16:31:06 DIE MAKER APPRENTICE Carlton rich MD [facility]-10045 Level 3 Est. Patient 16:23:24 DIE MAKER APPRENTICE Ridge tam [facility] CPT-80036 Level 3 Est. Patient 12:34:12 CDT Carlton rich MD [facility] CPT-49359 Level 2 Est. Patient 15:43:33 CDT Robi armstrong MD [facility] CPT-96457 Level 4 Est. Patient 14:04:44 CDT Carlton rich MD [facility] CPT-78077 Level 3 Est. Patient 05:47:59 CDT Ridge tam [facility] CPT-70142 Level 3 Est. Patient 13:12:53 DIE MAKER APPRENTICE Carlton rich MD [facility] CPT-07019 Level 3 Est. Patient 14:26:53 CDT Hugo Restrepo MD [facility] Procedures Code Procedure Name Date Entry Date Standard Desc ription CPT-000 Give Appropriate Flu Vaccine 14:14:31 CDT CPT-J1040 Depo Medrol 80 mg (Methyl Prednisolone A cetate) 10:42:44 CDT CPT-J1100 Decadron 8mg (Dexamethasone) 10:42:44 CDT 2 CPT-J0696 Rocephin 1gm Inj Solr 14:32:13 CDT CPT-J1020 Depo Medrol 60 mg (Methyl Prednisolone A cetate) 14:32:13 CDT CPT-J1100 Decadron 6mg (Dexamethasone) 14:32:13 CDT 2 CPT-03946 Hip bilat min 2V w AP pelvis 13:16:20 CDT 2 CPT-40277 Pelvis only 13:07:33 CDT CPT-39813 Spec Collection and Handling Fee 11:25:12 C DT CPT-48500 Fluzone Quadrivalent Intramuscular Suspe nsion 0.5 ML 14:31:55 CDT CPT-90062 Abx/Therapy Injection 13:28:47 DIE MAKER APPRENTICE CPT-J2930 Solu Medrol 125 mg (Methyl Prednisolone Sodium Succinate) 12:00:47 DIE MAKER APPRENTICE CPT-11943 Venipuncture Draw Fee 11:33:31 CDT CPT-63217 EKG Trac and Interp 11:21:09 CDT CPT-77632 Chest 2V Frontal and Lat 11:21:09 CDT 12/15 CPT-29941 Venipuncture Draw Fee 08:02:34 CDT CPT-62620 Chest 2V Frontal and Lat 05:47:59 CDT 06/05
--- OUTSIDE RECORDS SUMMARY | 2019-10-08 08:53 | XMS REPORT | Clinical Summary ---
Author Author Caitlin, Juliana Martinez Organization [employer] Address Unknown Phone Unavailable Allergies, Adverse Reactions, [...] URI 465.9 Inactive Ridge Bess DO Ac [place] upper respiratory infections of unspecified site Body [...] TABLET 1-2 po q6hr PRN Pain ACETAMINOPHEN-CODEINE 55467601582 Active David Marianneamisha RICEN A ctive ACYCLOVIR 800 MG ORAL TABLET 1 po 5 times daily x 7 days ACYCLOVIR 02242592274 Active David Marianne BINDERY MACHINE TENDER Active TOPAMAX 100 MG ORAL TABLET 1 by mouth twice daily TOPIRAMATE 93890249794 Active Columba Raida Active TRIAMCINOLONE ACETONIDE 0.1 % EXTERNAL OINTMENT Apply to affected areas TID PRN Rash/Itching for up 2 weeks TRIAMCINOLONE ACETON KAYLA 27332221238 No Longer Active David Marianne BINDERY MACHINE TENDER Active AMOXICILLIN 500 MG ORAL CAPSULE 1 cap by mouth twice daily 10/21 AMOXICILLIN 24790254666 No Longer Active David Marianne RICEN Active ELMIRON 100 MG ORAL CAPSULE 2 capsules in the morning and 1 capsule at night PENTOSAN POLYSULFATE SODIUM 41919827617 Active Cnithia [facility] [employer] Active CYMBALTA 30 MG ORAL CAPSULE DELAYED RELEASE PARTICLES 1 cap by mouth daily for depression DULOXETINE HCL 23517824380 No Longer Active Carlton Hu MD Active CYMBALTA 60 MG ORAL CAPSULE DELAYED RELEASE PARTICLES 1 cap by mouth daily for mood and pain DULOXETINE HCL 91603867625 Active Carlton Hu MD Active TUSSIONEX PENNKINETIC ER 10-8 MG/5ML ORAL SUSPENSION E XTENDED RELEASE 5ml po q12hr PRN Cough HYDROCOD POLST-CHLORPHEN POLST 19060029030 Active David Marianneamisha KHAN Active PREDNISONE 20 MG ORAL TABLET Take 2 tabs day 1 and 2 and 1 t ab days 3 and 4 PREDNISONE 42295187243 No Longer Active David Marianne BINDERY MACHINE TENDER Active DOXYCYCLINE HYCLATE 100 MG ORAL CAPSULE 1 cap by mouth twice latasha ly DOXYCYCLINE HYCLATE 88154517668 No Longer Active David Marianne BINDERY MACHINE TENDER Active TOPAMAX 100 MG ORAL TABLET Take 1 tablet po bid TOPIRAMATE 02231329154 No Longer Active David Marianne BINDERY MACHINE TENDER Active TUSSIONEX PENNKINETIC ER 10-8 MG/5ML ORAL SUSPENSION E XTENDED RELEASE 5ml po q12hr PRN Cough HYDROCOD POLST-CHLORPHEN POLST 5 2220166401 No Longer Active David Marianne BINDERY MACHINE TENDER Active AUGMENTIN 875-125 MG ORAL TABLET 1 po BID x 10 days 18/04/16 AMOXICILLIN-POT CLAVULANATE 76036856537 No Longer Active David Marianne BINDERY MACHINE TENDER Active PREDNISONE 50 MG ORAL TABLET Take 50 mg dialy for 6 day s 7 PREDNISONE 67450157438 No Longer Active David Marianne BINDERY MACHINE TENDER Active TUSSIONEX PENNKINETIC ER 10-8 MG/5ML ORAL SUSPENSION E XTENDED RELEASE 5ml po q12hr PRN Cough HYDROCOD POLST-CHLORPHEN POLST 5 6019218490 No Longer Active Cherelle Torres RN Active PREDNISONE 20 MG ORAL TABLET two tabs by mouth today, then one tab by mouth days two and three and four PREDNISONE 40859738874 No Lo nger Active Cherelle Torres RN Active AZITHROMYCIN 250 MG ORAL TABLET 2 po qd x 1 day, then 1 po q d x 4 days AZITHROMYCIN 86273733342 No Longer Active Ridge Bess DO Active PREDNISONE 20 MG ORAL TABLET 2 po qd x 5 days P REDNISONE 90946252447 No Longer Active Perez Mora MD Active PROAIR HFA 108 (90 BASE) MCG/ACT INHALATION AEROSOL SO LUTION 2 puffs four times a day as needed ALBUTEROL SULFATE 94011436746 No Long er Active Becky AGUILARA Active ASPIRIN 81 MG ORAL TABLET 1 po qd ASPIRIN 78207078311 Active Carlton Hu MD Active PREDNISONE 20 MG ORAL TABLET 1 tab twice daily for 3 d ay, then one daily for three days PREDNISONE 68375868495 No Longer Active Carlton Hu MD Active AUGMENTIN 875-125 MG ORAL TABLET 1 po BID x 10 days 16/03/22 AMOXICILLIN-POT CLAVULANATE 25088663763 No Longer Active Elise Garcia APRN Active TERBINAFINE HCL 250 MG ORAL TABLET 1 qDay for nail fungus 7 TERBINAFINE HCL 95696894363 No Longer Active Carlton Hu MD A ctive AMOXICILLIN 500 MG ORAL CAPSULE 1 cap by mouth three times a day AMOXICILLIN 00356366022 No Longer Active Carlton Hu MD Active ELMIRON 100 MG ORAL CAPSULE 2 tablets in the am and 1 tablet at hs PENTOSAN POLYSULFATE SODIUM 13890287978 No Longer Active Robert Hu MD Active MUCINEX D 60-600 MG ORAL TABLET EXTENDED RELEASE 12 HOUR 1 t ab po q am PSEUDOEPHEDRINE-GUAIFENESIN 61470974088 No Longer Act nael Carlton Hu MD Active MUCINEX DM MAXIMUM STRENGTH 60-1200 MG ORAL TABLET EXT ENDED RELEASE 12 HOUR 1 tab po q am DEXTROMETHORPHAN-GUAIFENESIN 38182708494 No Longer Active Carlton Hu MD Active TUSSIONEX PENNKINETIC ER 10-8 MG/5ML ORAL SUSPENSION E XTENDED RELEASE 5ml po q12hr PRN Cough HYDROCOD POLST-CHLORPHEN POLST 5 7061252257 No Longer Active Carlton Hu MD Active POTASSIUM CHLORIDE ER 20 MEQ ORAL TABLET EXTENDED RELE ASE Take 1 by mouth 4 times daily for 7 days POTASSIUM CHLORIDE 11814123094 No Longer Active Carlton Hu MD Active ZITHROMAX 250 MG ORAL TABLET 2 po today, then 1 po q days 2-5 20 14/09/04 AZITHROMYCIN 12305692031 No Longer Active Elise Garcia APRN Active TUSSIONEX PENNKINETIC ER 10-8 MG/5ML ORAL SUSPENSION E XTENDED RELEASE 5 ml twice a day as needed for cough HYDROCOD POLST-CHLORPH EN POLST 72992099553 No Longer Active Elise Garcia APRN Active MONTELUKAST SODIUM 10 MG ORAL TABLET 1 po daily for Allergy MONTELUKAST SODIUM 36930790763 Active Carlton Hu MD Ac tive TUSSIONEX PENNKINETIC ER 10-8 MG/5ML ORAL SUSPENSION E XTENDED RELEASE 5ml po q12hr PRN Cough HYDROCOD POLST-CHLORPHEN POLST 5 0321449298 No Longer Active Hugo Restrepo MD Active GABAPENTIN 100 MG ORAL CAPSULE 1 po BID for fibromyalgia GABAPENTIN 00708563889 Active ALFREDO Holly Active LYRICA 100 MG ORAL CAPSULE Take 1 tab po BID for fibromyalgia 20 11/08/21 PREGABALIN 71739760886 No Longer Active Elise Garcia APRN A ctive PREDNISONE 20 MG ORAL TABLET 2 tabs daily for 3 days, 1 tab daily for 3 days, 1/2 tab daily for 2 days PREDNISONE 01790309035 No Longer Active Diya De Guzman APRN Active TUSSIONEX PENNKINETIC ER 10-8 MG/5ML ORAL SUSPENSION E XTENDED RELEASE 5 mL PO q 12 hrs PRN cough HYDROCOD POLST-CHLORPHEN POLST 718124 94917 No Longer Active Jillina Frazell BINDERY MACHINE TENDER Active FLUTICASONE PROPIONATE 50 MCG/ACT NASAL SUSPENSION 2 s prays each nostril daily until bottle is empty FLUTICASONE PROPIONATE 886131135 99 No Longer Active Jillina Frazell BINDERY MACHINE TENDER Active ASMANEX 60 METERED DOSES 220 MCG/INH INHALATION AEROSO L POWDER BREATH ACTIVATED 1 puff bid with rinse after MOMETASONE FUROATE 2600526 4102 No Longer Active Jillina Frazell BINDERY MACHINE TENDER Active ZITHROMAX Z-REYNA 250 MG ORAL TABLET 2 today, then 1 daily for 4 d ays AZITHROMYCIN 28326978516 No Longer Active Elise Garcia APRN Active TUSSIONEX PENNKINETIC ER 10-8 MG/5ML ORAL SUSPENSION E XTENDED RELEASE 5ml po q12hr PRN Cough HYDROCOD POLST-CHLORPHEN POLST 5 3669060116 No Longer Active Elise Garcia APRN Active PREDNISONE 20 MG ORAL TABLET 2 tabs daily for 3 days, 1 tab daily for 3 days, 1/2 tab daily for 2 days PREDNISONE 00401444886 No Longer Active Diya De Guzman APRN Active AMOXICILLIN 500 MG ORAL CAPSULE 2 po BID x 10 days 201 09/29/08 AMOXICILLIN 16258503053 No Longer Active Diya De Guzman APRN Act nael SINGULAIR 10 MG ORAL TABLET 1 po qday for allergies 20 14/01/12 MONTELUKAST SODIUM 58032165158 No Longer Active Carlton Hu MD Active LEVAQUIN 500 MG ORAL TABLET 1 tablet by mouth daily 20 13/09/24 LEVOFLOXACIN 79883863864 No Longer Active Carlton Hu MD Acti ve FLUTICASONE PROPIONATE 50 MCG/ACT NASAL SUSPENSION 2 s prays each nostril daily for 2 weeks, then 1 spray each nostril daily. FLUTICASONE PROPIONATE 08324712317 Active Carlton Hu MD Active ZITHROMAX 250 MG ORAL TABLET 2 po today, then 1 po q days 2-5 20 13/08/10 AZITHROMYCIN 96831127733 No Longer Active Elise Garcia APRN Active XANAX 0.5 MG ORAL TABLET one tablet by mouth daily prn anxiety 2015 ALPRAZOLAM 61112037402 Active ALFREDO Holly Active CEFDINIR 300 MG ORAL CAPSULE 1 po BID x 10 days CEFDINIR 84349330709 No Longer Active Carlton Hu MD Active ZOCOR 40 MG ORAL TABLET 1 tab by mouth daily SI MVASTATIN 14387378649 No Longer Active Carlton Hu MD Active CYCLOBENZAPRINE HCL 10 MG ORAL TABLET 1 tablet by mouth BID prn had pain CYCLOBENZAPRINE HCL 79281476628 No Longer Active Jayden Hu MD Active LEVOFLOXACIN 500 MG ORAL TABLET 1 tab PO daily x 10 days LEVOFLOXACIN 95148270729 No Longer Active Carlton Hu MD Acti ve PREDNISONE 20 MG ORAL TABLET 3 tab PO qd x 2d, 2 tab P O qd x 2d, 1 tab PO qd x 2d, 1/2 tab PO qd x 2d PREDNISONE 85701497285 No Lo nger Active Carlton uH MD Active FLUTICASONE PROPIONATE 50 MCG/ACT NASAL SUSPENSION 1 t o 2 sprays each nostril daily FLUTICASONE PROPIONATE 54421191412 No Longer Ac tive Blaine HERNANDEZ Active CHERATUSSIN AC 100-10 MG/5ML ORAL SYRUP 1 tsp by mouth every 4 hours as needed for cough GUAIFENESIN-CODEINE 24186643496 No Longe r Active Blaine HERNANDEZ Active PROMETHAZINE-CODEINE 6.25-10 MG/5ML ORAL SYRUP 1 tsp b y mouth every 6 hours if needed for cough PROMETHAZINE-CODEINE 02698105518 No Longer Active Blaine HERNANDEZ Active CHERATUSSIN AC 100-10 MG/5ML ORAL SYRUP 1 tsp by mouth every 4 hours as needed for cough GUAIFENESIN-CODEINE 30034504899 No Longe r Active Blaine HERNANDEZ Active ZITHROMAX Z-REYNA 250 MG ORAL TABLET 2 today, then 1 daily for 4 d ays AZITHROMYCIN 41567179586 No Longer Active Columba Adhikari nael ZITHROMAX 250 MG ORAL TABLET 2 po today, then 1 po q days 2-5 20 14/03/21 AZITHROMYCIN 42000189823 No Longer Active Carlton Hu MD Active ZITHROMAX Z-REYNA 250 MG ORAL TABLET 2 today, then 1 daily for 4 d ays AZITHROMYCIN 66516166527 No Longer Active Columbabrady Parrish Act nael AUGMENTIN 875-125 MG ORAL TABLET 1 po BID x 10 days 13/01/20 AMOXICILLIN-POT CLAVULANATE 92138470835 No Longer Active Diya Sernabrayan KHAN Active ZITHROMAX 250 MG ORAL TABLET 2 po today, then 1 po q days 2-5 20 12/08/14 AZITHROMYCIN 89211846697 No Longer Active Carlton Hu MD Active TRAMADOL HCL 50 MG ORAL TABLET 1 po tid with ES Tylenol TRAMADOL HCL 81910738180 Active Carlton Hu MD Active PREMARIN 0.625 MG ORAL TABLET TAKE 1 TAB BY MOUTH DAILY ESTROGENS CONJUGATED 71042001820 No Longer Active Ridge Bess DO A ctive CYMBALTA 30 MG ORAL CAPSULE DELAYED RELEASE PARTICLES 1 cap by mouth daily DULOXETINE HCL 86692837823 No Longer Active Ridge tam DO Active AMOXICILLIN 500 MG ORAL CAPSULE 1 tab by mouth 3 times daily x 10 days AMOXICILLIN 04178286920 No Longer Active Carlton bustamante MD Active AMOXICILLIN 500 MG ORAL CAPSULE 1 tab by mouth 3 times daily x 10 days AMOXICILLIN 49573647384 No Longer Active Carlton bustamante MD Active PROMETHAZINE-CODEINE 6.25-10 MG/5ML ORAL SYRUP 1 tsp b y mouth every 8 hours prn cough PROMETHAZINE-CODEINE 31451973643 No Longer Acti ve Carlton Hu MD Active MEDROL 4 MG ORAL TABLET THERAPY PACK 6 pills x 1 day, then 5 pills x 1 day then 4 pills x 1 day, then 3 pills x 1 day, then 2 pills x 1 day, then 1 pill x 1 day, then stop METHYLPREDNISOLONE 33712237126 No Long er Active Perez Mora MD Active AZITHROMYCIN 250 MG ORAL TABLET 2 po qd x 1 day, then 1 po q d x 4 days AZITHROMYCIN 26390263933 No Longer Active Perez Ambriz MD Active SYMBICORT 160-4.5 MCG/ACT INHALATION AEROSOL 2 puffs bid wit h rinse after BUDESONIDE-FORMOTEROL FUMARATE 25422111310 N o Longer Active Perez Mora MD Active LYRICA 75 MG ORAL CAPSULE TAKE 1 CAPSULE BY MOUTH TWICE DAILY PREGABALIN 04483692458 No Longer Active Carlton Hu MD Acti ve TOPAMAX 25 MG ORAL TABLET 1 qHS x 1 week, then 1 BID x 1 week, then 1 qAM and 2 qHS x 1 week, then 2 BID (migraine prevention) T OPIRAMATE 64845601594 No Longer Active Jerica FUENTES Active TOPAMAX 50 MG ORAL TABLET take 1 tab po BID for migraines. 07/02 TOPIRAMATE 73282039248 No Longer Active Jerica FUENTES Active TRIAMCINOLONE ACETONIDE 0.1 % EXTERNAL CREAM apply three roger es daily prn rash TRIAMCINOLONE ACETONIDE 00742982292 No Longer Active Carlton Hu MD Active PAXIL 40 MG ORAL TABLET take 1 tab po qday for depression 0 PAROXETINE HCL 73889181009 Active Carlton Hu MD Active CHERATUSSIN AC 100-10 MG/5ML ORAL SYRUP 5ml po q6hr PRN Cough 20 13/04/14 GUAIFENESIN-CODEINE 77531356168 No Longer Active Carlton Hu MD Active MEDROL 4 MG ORAL TABLET THERAPY PACK 6 tabs on day 1, 5 tabs on day 2, 4 tabs on day 3, 3 tabs on day 4, 2 tabs on day 5, 1 tab on day 6 2013 METHYLPREDNISOLONE 32660671603 No Longer Active Perez Mora MD Active AZITHROMYCIN 250 MG ORAL TABLET 2 po qd x 1 day, then 1 po q d x 4 days AZITHROMYCIN 24616929589 No Longer Active Perez Ambriz MD Active PROPRANOLOL HCL 60 MG ORAL TABLET 1 PO Q D PROPRANOLOL HCL 37941253306 No Longer Active Perez Mora MD Activ e CHERATUSSIN AC 100-10 MG/5ML ORAL SYRUP take one tsp po Q 6h ours prn cough GUAIFENESIN-CODEINE 85851948310 No Longer Active Zia Mora MD Active AUGMENTIN 875-125 MG ORAL TABLET 1 tab by mouth twice daily with food AMOXICILLIN-POT CLAVULANATE 70449117654 No Longer Act nael Perez Mora MD Active CHERATUSSIN AC 100-10 MG/5ML ORAL SYRUP 1 tsp by mouth every 4 hours as needed for cough GUAIFENESIN-CODEINE 75977357015 No Longe r Active Hugo Restrepo MD Active ACETAMINOPHEN-CODEINE #3 300-30 MG ORAL TABLET 1 PO Q 4-6 HRS MT N PAIN ACETAMINOPHEN-CODEINE 66975400898 No Longer Active Hugo Restrepo MD Active LEVAQUIN 500 MG ORAL TABLET take one po QD LEVO FLOXACIN 84247720922 No Longer Active Griffin HERNANDEZ Active PREDNISONE 20 MG ORAL TABLET Take 3 tabs daily for 3 d ays, 2 tabs daily for 3 days, 1 tab daily for 3 days, 1/2 tab daily for 3 days 11/07 PREDNISONE 80428268405 No Longer Active Carlton Hu MD Acti ve AVELOX 400 MG ORAL TABLET 1 tab by mouth daily MOXIFLOXACIN HCL 27573455800 No Longer Active Carlton Hu MD Active CHERATUSSIN AC 100-10 MG/5ML ORAL SYRUP 1 tsp by mouth every 4 hours as needed for cough GUAIFENESIN-CODEINE 32025688216 No Longe r Active Hugo Restrepo MD Active AVELOX 400 MG ORAL TABLET 1 tab by mouth daily MOXIFLOXACIN HCL 39174923125 No Longer Active Marcy De La Rosa MD PhD Active TERBINAFINE HCL 250 MG ORAL TABLET 1 qDay T ERBINAFINE HCL 02402443530 No Longer Active Marcy De La Rosa MD PhD Active CHERATUSSIN AC 100-10 MG/5ML ORAL SYRUP 1 tsp by mouth every 4 hours as needed for cough GUAIFENESIN-CODEINE 22241170947 No Longe r Active Marcy De La Rosa MD PhD Active AVELOX 400 MG ORAL TABLET 1 tab by mouth daily MOXIFLOXACIN HCL 00967762878 No Longer Active Marcy De La Rosa MD PhD Active HYDROCODONE-ACETAMINOPHEN 5-325 MG ORAL TABLET 1 po q 6hr PRN co ugh HYDROCODONE-ACETAMINOPHEN 02612431217 No Longer Active Marcy De La Rosa MD PhD Active PREDNISONE 20 MG ORAL TABLET 2 tabs daily for 3 days, 1 tab daily for 3 days, 1/2 tab daily for 2 days PREDNISONE 35483718350 No Longer Active Carlton Hu MD Active CEFDINIR 300 MG ORAL CAPSULE by mouth twice a day 2011 CEFDINIR 75291125706 No Longer Active Carlton Hu MD Acti ve HYDROCHLOROTHIAZIDE 25 MG ORAL TABLET 1 TAB PO DAILY HYDROCHLOROTHIAZIDE 72697870662 Active Carlton Hu MD A ctive ACETAMINOPHEN-CODEINE #3 300-30 MG ORAL TABLET 1 tablet po q 4-6 hrs prn pain ACETAMINOPHEN-CODEINE 73607558787 No Longer Active Ridge Bess DO Active ZITHROMAX 250 MG ORAL TABLET 2 po today, then 1 po q days 2-5 20 03/07/07 AZITHROMYCIN 53127971023 No Longer Active Carlton Hu MD Active CHERATUSSIN AC 100-10 MG/5ML ORAL SYRUP take 1 tsp po q4-6 h ours prn cough GUAIFENESIN-CODEINE 37734200197 No Longer Active Jayden Hu MD Active ACETAMINOPHEN-CODEINE #3 300-30 MG ORAL TABLET 1 PO Q 4-6 HR PRN PAIN ACETAMINOPHEN-CODEINE 59609770291 No Longer Active Arnol Hu MD Active LORTAB 7.5-500 MG/15ML ORAL ELIXIR 7.5 ml po q 4 hour prn cough HYDROCODONE-ACETAMINOPHEN 85639253479 No Longer Active Carlton Hu MD Active PREDNISONE 20 MG ORAL TABLET 1 po bid 3 days, then 1 po q day 3 days PREDNISONE 37489805981 No Longer Active Carlton Hu MD Active CEFDINIR 300 MG ORAL CAPSULE by mouth twice a day 2011 CEFDINIR 91937937738 No Longer Active Carlton Hu MD Acti ve CEFDINIR 300 MG ORAL CAPSULE by mouth twice a day 2010 CEFDINIR 74712305191 No Longer Active Carlton Hu MD Acti ve CEFDINIR 300 MG ORAL CAPSULE by mouth twice a day 2010 CEFDINIR 31381419448 No Longer Active Carlton Hu MD Acti ve TESSALON PERLES 100 MG ORAL CAPSULE 1 tablet by mouth 3 times daily as needed for cough BENZONATATE 30823329111 No Longer Active Carlton Hu MD Active CEFDINIR 300 MG ORAL CAPSULE by mouth twice a day 2010 CEFDINIR 63787154985 No Longer Active Carlton Hu MD Acti ve ZITHROMAX Z-REYNA 250 MG ORAL TABLET 2 today, then 1 daily for 4 d ays AZITHROMYCIN 59679567953 No Longer Active Hugo Restrepo MD Active TESSALON PERLES 100 MG ORAL CAPSULE 1 tablet by mouth 3 times daily as needed for cough TESSALON PERLES 100 MG ORAL CAPSULE 18363 7 BENZONATATE Inactive PREDNISONE 20 MG ORAL TABLET 1 po bid 3 days, then 1 po q day 3 days PREDNISONE 20 MG ORAL TABLET 060133 PREDNISONE [place] ctive LORTAB 7.5-500 MG/15ML ORAL ELIXIR 7.5 [...] cough CHERATUSSIN AC 100-10 MG/5ML ORAL SYRUP 577607 GUAIFENESIN-CODEINE Inactive ACETAMINOPHEN-CODEINE #3 300-30 MG ORAL TABLET 1 tablet po q 4-6 hrs prn pain ACETAMINOPHEN-CODEINE #3 300-30 MG ORAL TABLET ACETAMINOPHEN-CODEINE Inactive HYDROCODONE-ACETAMINOPHEN 5-325 MG ORAL TABLET 1 po q 6hr PRN co ugh HYDROCODONE-ACETAMINOPHEN 5-325 MG ORAL TABLET 271337 HYDROCODONE-ACETAMINOPHEN Inactive AVELOX 400 MG ORAL TABLET 1 tab by mouth daily AVELOX 400 MG ORAL TABLET 776962 MOXIFLOXACIN HCL Inactive CHERATUSSIN AC 100-10 MG/5ML ORAL SYRUP 1 tsp by mouth every 4 hours as needed for cough CHERATUSSIN AC 100-10 MG/5ML ORAL SYRUP 9 25189 GUAIFENESIN-CODEINE Inactive TERBINAFINE HCL 250 MG ORAL TABLET 1 qDay 07/08 TERBINAFINE HCL 250 MG ORAL TABLET 848021 TERBINAFINE HCL Inactive CHERATUSSIN AC 100-10 MG/5ML ORAL SYRUP 1 tsp by mouth every 4 hours as needed for cough CHERATUSSIN AC 100-10 MG/5ML ORAL SYRUP 9 75421 GUAIFENESIN-CODEINE Inactive ACETAMINOPHEN-CODEINE #3 300-30 MG ORAL TABLET 1 PO Q 4-6 HRS MT N PAIN ACETAMINOPHEN-CODEINE #3 300-30 MG ORAL TABLET ACETAMINOPHEN-CODEINE Inactive CHERATUSSIN AC 100-10 MG/5ML ORAL SYRUP 1 tsp by mouth every 4 hours as needed for cough CHERATUSSIN AC 100-10 MG/5ML ORAL SYRUP 9 07458 GUAIFENESIN-CODEINE Inactive AUGMENTIN 875-125 MG ORAL TABLET 1 tab by mouth twice daily with food AUGMENTIN 875-125 MG ORAL TABLET AMOXICIL MADELINE-POT CLAVULANATE Inactive CHERATUSSIN AC 100-10 MG/5ML ORAL SYRUP take one tsp po Q 6h ours prn cough CHERATUSSIN AC 100-10 MG/5ML ORAL SYRUP 721013 GUAIFENESIN-CODEINE Inactive PROPRANOLOL HCL 60 MG ORAL TABLET 1 PO Q D PROPRANOLOL HCL 60 MG ORAL TABLET 325475 PROPRANOLOL HCL Inactive TOPAMAX 50 MG ORAL TABLET take 1 tab po BID for migraines. 07/02 TOPAMAX 50 MG ORAL TABLET 866602 TOPIRAMATE Inacti ve TOPAMAX 25 MG ORAL TABLET 1 qHS x 1 week, then 1 BID x 1 week, then 1 qAM and 2 qHS x 1 week, then 2 BID (migraine prevention) TOPAMAX 25 MG ORAL TABLET 718737 TOPIRAMATE Inactive LYRICA 75 MG ORAL CAPSULE TAKE 1 CAPSULE BY MOUTH TWICE DAILY LYRICA 75 MG ORAL CAPSULE PREGABALIN Inactive SYMBICORT 160-4.5 MCG/ACT INHALATION AEROSOL 2 puffs bid wit h rinse after SYMBICORT 160-4.5 MCG/ACT INHALATION AEROSOL BUDESONIDE- FORMOTEROL FUMARATE Inactive PROMETHAZINE-CODEINE 6.25-10 MG/5ML ORAL SYRUP 1 tsp b y mouth every 8 hours prn cough PROMETHAZINE-CODEINE 6.25-10 MG/ 5ML ORAL SYRUP 495618 PROMETHAZINE-CODEINE Inactive CYMBALTA 30 MG ORAL CAPSULE DELAYED RELEASE PARTICLES 1 cap by mouth daily CYMBALTA 30 MG ORAL CAPSULE DELAYED RELE ASE PARTICLES 409427 DULOXETINE HCL Inactive PREMARIN 0.625 MG ORAL TABLET TAKE 1 TAB BY MOUTH DAILY PREMARIN 0.625 MG ORAL TABLET ESTROGENS CONJUGATED Inactive CHERATUSSIN AC 100-10 MG/5ML ORAL SYRUP 1 tsp by mouth every 4 hours as needed for cough CHERATUSSIN AC 100-10 MG/5ML ORAL SYRUP 9 17591 GUAIFENESIN-CODEINE Inactive PROMETHAZINE-CODEINE 6.25-10 MG/5ML ORAL SYRUP 1 tsp b y mouth every 6 hours if needed for cough PROMETHAZINE-CODEINE 6.25-10 MG/5ML ORAL SYRUP 922709 PROMETHAZINE-CODEINE Inactive CHERATUSSIN AC 100-10 MG/5ML ORAL SYRUP 1 tsp by mouth every 4 hours as needed for cough CHERATUSSIN AC 100-10 MG/5ML ORAL SYRUP 9 97483 GUAIFENESIN-CODEINE Inactive FLUTICASONE PROPIONATE 50 MCG/ACT NASAL SUSPENSION 1 t o 2 sprays each nostril daily FLUTICASONE PROPIONATE 50 MCG/AC T NASAL SUSPENSION 5157788 FLUTICASONE PROPIONATE Inactive PREDNISONE 20 MG ORAL TABLET 3 tab PO qd x 2d, 2 tab P O qd x 2d, 1 tab PO qd x 2d, 1/2 tab PO qd x 2d PREDNISONE 20 MG ORAL TAB LET 271900 PREDNISONE Inactive LEVOFLOXACIN 500 MG ORAL TABLET 1 tab PO daily x 10 days LEVOFLOXACIN 500 MG ORAL TABLET 182181 LEVOFLOXACIN Inactive CYCLOBENZAPRINE HCL 10 MG ORAL TABLET 1 tablet by mouth BID prn had pain CYCLOBENZAPRINE HCL 10 MG ORAL TABLET 637623 CYCLOBENZAPRINE HCL Inactive ZOCOR 40 MG ORAL TABLET 1 tab by mouth daily 4 ZOCOR 40 MG ORAL TABLET 852315 SIMVASTATIN Inactive TUSSIONEX PENNKINETIC ER 10-8 MG/5ML [...] FLUTICASONE PROPIO EFE 50 MCG/ACT NASAL SUSPENSION 1630249 FLUTICASONE PROPIONATE Inactive TUSSIONEX PENNKINETIC ER 10-8 [...] three days PREDNISONE 20 MG ORAL TABLET 037286 PREDNIS ONE Inactive PROAIR HFA 108 (90 BASE) MCG/ACT INHALATION AEROSOL SO LUTION 2 puffs four times a day as needed PROAIR HFA 108 (90 B ASE) MCG/ACT INHALATION AEROSOL SOLUTION ALBUTEROL SULFATE Inactive PREDNISONE 20 MG ORAL TABLET two tabs by mouth today, then one tab by mouth days two and three and four PREDNISONE 20 MG ORAL TAB LET 510638 PREDNISONE Inactive TUSSIONEX PENNKINETIC ER 10-8 MG/5ML [...] bid 04/20 TOPAMAX 100 MG ORAL TABLET 166151 TOPIRAMATE Inactive CYMBALTA 30 MG ORAL CAPSULE DELAYED RELEASE PARTICLES 1 cap by mouth daily for depression CYMBALTA 30 MG ORAL CAPSULE DELAYED RELEASE PARTICLES 824751 DULOXETINE HCL Inactive ZITHROMAX Z-REYNA 250 MG ORAL TABLET 2 today, then 1 daily for 4 d ays ZITHROMAX Z-REYNA 250 MG ORAL TABLET 593163 AZITHROMYCIN Inactive CEFDINIR 300 MG ORAL CAPSULE by mouth twice a day 2010 CEFDINIR 300 MG ORAL CAPSULE 20020704 CEFDINIR Inactive CEFDINIR 300 MG ORAL CAPSULE by mouth twice a day 2010 CEFDINIR 300 MG ORAL CAPSULE 932768 CEFDINIR Inactive CEFDINIR 300 MG ORAL CAPSULE by mouth twice a day 2010 CEFDINIR 300 MG ORAL CAPSULE 573652 CEFDINIR Inactive CEFDINIR 300 MG ORAL CAPSULE by mouth twice a day 2011 CEFDINIR 300 MG ORAL CAPSULE 324220 CEFDINIR Inactive ZITHROMAX 250 MG ORAL TABLET 2 po today, then 1 po q days 2-5 20 03/07/07 ZITHROMAX 250 MG ORAL TABLET 361350 AZITHROMYCIN [place] ctive CEFDINIR 300 MG ORAL CAPSULE by mouth twice a day 2011 CEFDINIR 300 MG ORAL CAPSULE 249114 CEFDINIR Inactive PREDNISONE 20 MG ORAL TABLET 2 tabs daily for 3 days, 1 tab daily for 3 days, 1/2 tab daily for 2 days PREDNISONE 20 MG ORAL T ABLET 272987 PREDNISONE Inactive AVELOX 400 MG ORAL TABLET 1 tab by mouth daily AVELOX 400 MG ORAL TABLET 008048 MOXIFLOXACIN HCL Inactive AVELOX 400 MG ORAL TABLET 1 tab by mouth daily AVELOX 400 MG ORAL TABLET 684103 MOXIFLOXACIN HCL Inactive PREDNISONE 20 MG ORAL TABLET Take 3 tabs daily for 3 d ays, 2 tabs daily for 3 days, 1 tab daily for 3 days, 1/2 tab daily for 3 days 11/07 PREDNISONE 20 MG ORAL TABLET 113708 PREDNISONE Inactive LEVAQUIN 500 MG ORAL TABLET take one po QD LEVAQUIN 500 MG ORAL TABLET 886588 LEVOFLOXACIN Inactive AZITHROMYCIN 250 MG ORAL TABLET 2 po qd x 1 day, then 1 po q d x 4 days AZITHROMYCIN 250 MG ORAL TABLET 409566 AZITHROMY GIOVANNI Inactive MEDROL 4 MG ORAL TABLET THERAPY PACK 6 tabs on day 1, 5 tabs on day 2, 4 tabs on day 3, 3 tabs on day 4, 2 tabs on day 5, 1 tab on day 6 2013 MEDROL 4 MG ORAL TABLET THERAPY PACK [id number] METHYLPREDNISOLONE Greer ctive CHERATUSSIN AC 100-10 MG/5ML ORAL SYRUP 5ml po q6hr PRN Cough 20 13/04/14 CHERATUSSIN AC 100-10 MG/5ML ORAL SYRUP 088023 GUAIFENE SIN-CODEINE Inactive TRIAMCINOLONE ACETONIDE 0.1 % EXTERNAL CREAM apply three roger es daily prn rash TRIAMCINOLONE ACETONIDE 0.1 % EXTERNAL CREAM 101 4314 TRIAMCINOLONE ACETONIDE Inactive AZITHROMYCIN 250 MG ORAL TABLET 2 po qd x 1 day, then 1 po q d x 4 days AZITHROMYCIN 250 MG ORAL TABLET [id number] AZITHROMY GIOVANNI Inactive MEDROL 4 MG ORAL TABLET THERAPY PACK 6 pills x 1 day, then 5 pills x 1 day then 4 pills x 1 day, then 3 pills x 1 day, then 2 pills x 1 day, then 1 pill x 1 day, then stop MEDROL 4 MG ORAL TABLET THERAPY PACK [id number] METHYLPREDNISOLONE Inactive AMOXICILLIN 500 MG ORAL CAPSULE 1 tab by mouth 3 times daily x 10 days AMOXICILLIN 500 MG ORAL CAPSULE 147790 AMOXICILL IN Inactive AMOXICILLIN 500 MG ORAL CAPSULE 1 tab by mouth 3 times daily x 10 days AMOXICILLIN 500 MG ORAL CAPSULE 060729 AMOXICILL IN Inactive ZITHROMAX 250 MG ORAL TABLET 2 po today, then 1 po q days 2-5 20 12/08/14 ZITHROMAX 250 MG ORAL TABLET 158756 AZITHROMYCIN [place] [facility] AUGMENTIN 875-125 MG ORAL TABLET 1 po BID x 10 days 13/01/20 AUGMENTIN 875-125 MG ORAL TABLET AMOXICILLIN-POT CLAVULANATE Inactive ZITHROMAX Z-REYNA 250 MG ORAL TABLET 2 today, then 1 daily for 4 d ays ZITHROMAX Z-REYNA 250 MG ORAL TABLET 110526 AZITHROMYCIN Inactive ZITHROMAX 250 MG ORAL TABLET 2 po today, then 1 po q days 2-5 20 14/03/21 ZITHROMAX 250 MG ORAL TABLET 802784 AZITHROMYCIN [place] [facility] ZITHROMAX Z-REYNA 250 MG ORAL TABLET 2 today, then 1 daily for 4 d ays ZITHROMAX Z-REYNA 250 MG ORAL TABLET 956153 AZITHROMYCIN Inactive CEFDINIR 300 MG ORAL CAPSULE 1 po BID x 10 days 06/21 CEFDINIR 300 MG ORAL CAPSULE 861827 CEFDINIR Inactive ZITHROMAX 250 MG ORAL TABLET 2 po today, then 1 po q days 2-5 20 13/08/10 ZITHROMAX 250 MG ORAL TABLET 293546 AZITHROMYCIN [place] [facility] LEVAQUIN 500 MG ORAL TABLET 1 tablet by mouth daily 13/09/24 LEVAQUIN 500 MG ORAL TABLET 678435 LEVOFLOXACIN Inactive SINGULAIR 10 MG ORAL TABLET 1 po qday for allergies 20 14/01/12 SINGULAIR 10 MG ORAL TABLET 20010504 MONTELUKAST SODIUM Inactive AMOXICILLIN 500 MG ORAL CAPSULE 2 po BID x 10 days 201 09/29/08 AMOXICILLIN 500 MG ORAL CAPSULE 090842 AMOXICILLIN Inactive PREDNISONE 20 MG ORAL TABLET 2 tabs daily for 3 days, 1 tab daily for 3 days, 1/2 tab daily for 2 days PREDNISONE 20 MG ORAL T ABLET 425575 PREDNISONE Inactive ZITHROMAX Z-REYNA 250 MG ORAL TABLET 2 today, then 1 daily for 4 d ays ZITHROMAX Z-REYNA 250 MG ORAL TABLET 945183 AZITHROMYCIN Inactive PREDNISONE 20 MG ORAL TABLET 2 tabs daily for 3 days, 1 tab daily for 3 days, 1/2 tab daily for 2 days PREDNISONE 20 MG ORAL T ABLET 979047 PREDNISONE Inactive ZITHROMAX 250 MG ORAL TABLET 2 po today, then 1 po q days 2-5 20 14/09/04 ZITHROMAX 250 MG ORAL TABLET 130287 AZITHROMYCIN [place] [facility] AMOXICILLIN 500 MG ORAL CAPSULE 1 cap by mouth three times a day AMOXICILLIN 500 MG ORAL CAPSULE 308770 AMOXICILLIN Inactive TERBINAFINE HCL 250 MG ORAL TABLET 1 qDay for nail fungus 7 TERBINAFINE HCL 250 MG ORAL TABLET 979873 TERBINAFINE HCL Inact nael AUGMENTIN 875-125 MG ORAL TABLET 1 po BID x 10 days 16/03/22 AUGMENTIN 875-125 MG ORAL TABLET AMOXICILLIN-POT CLAVULANATE Inactive PREDNISONE 20 MG ORAL TABLET 2 po qd x 5 days PREDNISONE 20 MG ORAL TABLET 604276 PREDNISONE Inactive AZITHROMYCIN 250 MG ORAL TABLET 2 po qd x 1 day, then 1 po q d x 4 days AZITHROMYCIN 250 MG ORAL TABLET 449757 AZITHROMY GIOVANNI Inactive PREDNISONE 50 MG ORAL TABLET Take 50 mg dialy for 6 day s 7 PREDNISONE 50 MG ORAL TABLET 092044 PREDNISONE Inactive AUGMENTIN 875-125 MG ORAL TABLET 1 po BID x 10 days 18/04/16 AUGMENTIN 875-125 MG ORAL TABLET AMOXICILLIN-POT CLAVULANATE Inactive DOXYCYCLINE HYCLATE 100 MG ORAL CAPSULE 1 cap by mouth twice latasha ly DOXYCYCLINE HYCLATE 100 MG ORAL CAPSULE 9142348 DOXYCYCL INE HYCLATE Inactive PREDNISONE 20 MG ORAL TABLET Take 2 tabs day 1 and 2 and 1 t ab days 3 and 4 PREDNISONE 20 MG ORAL TABLET 549335 PREDNISONE Inactive AMOXICILLIN 500 MG ORAL CAPSULE 1 cap by mouth twice daily 10/21 AMOXICILLIN 500 MG ORAL CAPSULE 022827 AMOXICILLIN Inactive TRIAMCINOLONE ACETONIDE 0.1 % EXTERNAL OINTMENT Apply to affected areas TID PRN Rash/Itching for up 2 weeks TRIAMCINOLON E ACETONIDE 0.1 % EXTERNAL OINTMENT 4472987 TRIAMCINOLONE ACETONIDE Inactive Vital Signs Date Name [...] - Chem istry sodium, serum 139 mmol/L 628-016 7551/10/12 potassium, serum 3.8 mmol/L 3.5-5.2 chloride, serum [...] negative Encounters Code Encounter Date Provider Facility CPT-32677 Level 3 Est. Patient 13:57:55 CDT David lion [facility] CPT-40201 Level 3 Est. Patient 16:08:07 CDT David lion [facility] CPT-51911 Level 3 Est. Patient 16:53:54 CDT May haas MD [facility] CPT-41607 [id number] Vst-Est Level IV 08:41:08 Jadon Santos MD [facility] CPT-37634 Level 3 Est. Patient 09:46:49 ENGLISH INSTRUCTOR David Muñiz miguellidia [facility] CPT-61800 [id number] Vst-Est Level III 11:12:16 CDT Yanet Bess DO [facility] CPT-74438 Level 3 Est. Patient 11:34:49 ENGLISH INSTRUCTOR Perez Mora MD [facility] CPT-13580 Level 4 Est. Patient 09:51:32 ENGLISH INSTRUCTOR Carlton rich MD [facility] CPT-96232 Level 3 Est. Patient 10:26:00 ENGLISH INSTRUCTOR Elise Are ll [facility] CPT-65631 Level 3 Est. Patient 13:35:41 ENGLISH INSTRUCTOR Carlton rich MD [facility] CPT-82334 Level 3 Est. Patient 10:03:52 ENGLISH INSTRUCTOR Carlton rich MD [facility] CPT-34529 Level 3 Est. Patient 12:17:50 CDT Hugo Restrepo MD [facility] CPT-39346 Level 3 Est. Patient 13:42:38 CDT Elise Are [facility] CPT-30848 Level 3 Est. Patient 13:23:51 CDT Diya cobian [facility] CPT-72434 Level 3 Est. Patient 14:22:19 ENGLISH INSTRUCTOR Diya cobian [facility] CPT-77047 Level 3 Est. Patient 10:11:46 CDT Carlton rich MD [facility] CPT-38027 Level 3 Est. Patient 17:29:43 CDT Elise Are ll [facility] CPT-13801 Level 3 Est. Patient 11:58:06 CDT Elise Are ll [facility] CPT-57693 Level 4 Est. Patient 14:36:51 CDT Carlton rich MD [facility] CPT-58632 Level 3 Est. Patient 18:16:00 ENGLISH INSTRUCTOR Blaine W Cloven [facility] CPT-87144 Level 3 Est. Patient 09:45:49 ENGLISH INSTRUCTOR Carlton rich MD [facility]-73291 Level 3 Est. Patient 13:19:20 CDT Carlton rich MD [facility]-22610 Level 3 Est. Patient 13:06:43 CDT Ridge tam DO [facility] CPT-60351 Level 3 Est. Patient 10:03:07 CDT Perez Mora MD [facility]-32794 Level 3 Est. Patient 19:50:35 ENGLISH INSTRUCTOR Carlton rich MD [facility]-42234 Level 4 Est. Patient 18:05:01 ENGLISH INSTRUCTOR Carlton rich MD [facility]-62998 Level 3 Est. Patient 10:45:55 ENGLISH INSTRUCTOR Hugo Restrepo MD [facility]-23107 Level 3 Est. Patient 14:12:49 CDT Griffin lincoln [facility]-06551 Level 3 Est. Patient 17:37:24 CDT Carlton rich MD [facility]-39153 Level 3 Est. Patient 16:51:54 CDT Carlton rich MD [facility]-75832 Level 3 Est. Patient 12:18:11 CDT Hugo Restrepo MD [facility]-47117 Level 3 Est. Patient 11:30:25 CDT Marcy crisostomo MD PhD [facility]-75982 Level 3 Est. Patient 12:00:47 ENGLISH INSTRUCTOR Carlton rich MD [facility]-90778 Level 3 Est. Patient 16:31:06 ENGLISH INSTRUCTOR Carlton rich MD [facility]-16361 Level 3 Est. Patient 16:23:24 ENGLISH INSTRUCTOR Ridge tam [facility] CPT-62467 Level 3 Est. Patient 12:34:12 CDT Carlton rich MD [facility] CPT-59358 Level 2 Est. Patient 15:43:33 CDT Robi armstrong MD [facility] CPT-78405 Level 4 Est. Patient 14:04:44 CDT Carlton rich MD [facility] CPT-83917 Level 3 Est. Patient 05:47:59 CDT Ridge tam [facility] CPT-68000 Level 3 Est. Patient 13:12:53 ENGLISH INSTRUCTOR Carlton rich MD [facility] CPT-14741 Level 3 Est. Patient 14:26:53 CDT Hugo [...] CPT-J1100 Decadron 6mg (Dexamethasone) 14:32:13 CDT 2 CPT-24692 Hip bilat min 2V w AP pelvis 13:16:20 CDT 2 CPT-24949 Pelvis only 13:07:33 CDT CPT-33542 Spec Collection and Handling Fee 11:25:12 C DT CPT-24449 Fluzone Quadrivalent Intramuscular Suspe nsion 0.5 ML 14:31:55 CDT CPT-67759 Abx/Therapy Injection 13:28:47 ENGLISH INSTRUCTOR CPT-J2930 Solu Medrol 125 mg (Methyl Prednisolone Sodium Succinate) 12:00:47 ENGLISH INSTRUCTOR CPT-10328 Venipuncture Draw Fee 11:33:31 CDT CPT-10711 EKG Trac and Interp 11:21:09 CDT CPT-19414 Chest 2V Frontal and Lat 11:21:09 CDT 12/15 CPT-87451 Venipuncture Draw Fee 08:02:34 CDT CPT-19719 Chest 2V Frontal and Lat 05:47:59 CDT 06/05
--- OUTSIDE RECORDS SUMMARY | 2019-10-08 08:53 | XMS REPORT | Clinical Summary ---
Author Author Caitlin, Juliana Martinez Organization [employer] Address Unknown Phone Unavailable Allergies, Adverse Reactions, [...] MD Unspecified sinusitis (chronic) Bronchitis 490 Resolved Huog Restrepo MD Bronchitis, not specified as acute [...] URI 465.9 Inactive Ridge Bess DO Ac [place] upper respiratory infections of unspecified site Body [...] TABLET 1-2 po q6hr PRN Pain ACETAMINOPHEN-CODEINE 35879224487 Active David Lopes APRN A ctive ACYCLOVIR 800 MG ORAL TABLET 1 po 5 times daily x 7 days ACYCLOVIR 60966386370 Active David Marianne INSPECTOR PENETRANT Active TOPAMAX 100 MG ORAL TABLET 1 by mouth twice daily TOPIRAMATE 91063851869 Active Columba Raida Active TRIAMCINOLONE ACETONIDE 0.1 % EXTERNAL OINTMENT Apply to affected areas TID PRN Rash/Itching for up 2 weeks TRIAMCINOLONE ACETON KAYLA 88106188622 No Longer Active David Lopes APRN Active AMOXICILLIN 500 MG ORAL CAPSULE 1 cap by mouth twice daily 10/21 AMOXICILLIN 92789978155 No Longer Active David Marianne RICEN Active ELMIRON 100 MG ORAL CAPSULE 2 capsules in the morning and 1 capsule at night PENTOSAN POLYSULFATE SODIUM 57330938884 Active 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 CYMBALTA 30 MG ORAL CAPSULE DELAYED RELEASE PARTICLES 1 cap by mouth daily for depression DULOXETINE HCL 01731872803 No Longer Active Carlton Hu MD Active CYMBALTA 60 MG ORAL CAPSULE DELAYED RELEASE PARTICLES 1 cap by mouth daily for mood and pain DULOXETINE HCL 36280157747 Active Carlton Hu MD Active TUSSIONEX PENNKINETIC ER 10-8 MG/5ML ORAL SUSPENSION E XTENDED RELEASE 5ml po q12hr PRN Cough HYDROCOD POLST-CHLORPHEN POLST 30201659148 Active David Lopes APRN Active PREDNISONE 20 MG ORAL TABLET Take 2 tabs day 1 and 2 and 1 t ab days 3 and 4 PREDNISONE 65926457338 No Longer Active David Marianne INSPECTOR PENETRANT Active DOXYCYCLINE HYCLATE 100 MG ORAL CAPSULE 1 cap by mouth twice latasha ly DOXYCYCLINE HYCLATE 44783494390 No Longer Active David Marianne INSPECTOR PENETRANT Active TOPAMAX 100 MG ORAL TABLET Take 1 tablet po bid TOPIRAMATE 90968617604 No Longer Active David Marianne INSPECTOR PENETRANT Active TUSSIONEX PENNKINETIC ER 10-8 MG/5ML ORAL SUSPENSION E XTENDED RELEASE 5ml po q12hr PRN Cough HYDROCOD POLST-CHLORPHEN POLST 5 3529583256 No Longer Active David Marianne INSPECTOR PENETRANT Active AUGMENTIN 875-125 MG ORAL TABLET 1 po BID x 10 days 18/04/16 AMOXICILLIN-POT CLAVULANATE 06597098703 No Longer Active David Marianne INSPECTOR PENETRANT Active PREDNISONE 50 MG ORAL TABLET Take 50 mg dialy for 6 day s 7 PREDNISONE 05016431158 No Longer Active David Marianne INSPECTOR PENETRANT Active TUSSIONEX PENNKINETIC ER 10-8 MG/5ML ORAL SUSPENSION E XTENDED RELEASE 5ml po q12hr PRN Cough HYDROCOD POLST-CHLORPHEN POLST 5 4079861926 No Longer Active Cherelle Torres RN Active PREDNISONE 20 MG ORAL TABLET two tabs by mouth today, then one tab by mouth days two and three and four PREDNISONE 40237593048 No Lo nger Active Cherelle Torres RN Active AZITHROMYCIN 250 MG ORAL TABLET 2 po qd x 1 day, then 1 po q d x 4 days AZITHROMYCIN 11508907619 No Longer Active Ridge Bess DO Active PREDNISONE 20 MG ORAL TABLET 2 po qd x 5 days P REDNISONE 77261338866 No Longer Active Perez Mora MD Active PROAIR HFA 108 (90 BASE) MCG/ACT INHALATION AEROSOL SO LUTION 2 puffs four times a day as needed ALBUTEROL SULFATE 69752863747 No Long er Active Becky AGUILARA Active ASPIRIN 81 MG ORAL TABLET 1 po qd ASPIRIN 00759103231 Active Carlton Hu MD Active PREDNISONE 20 MG ORAL TABLET 1 tab twice daily for 3 d ay, then one daily for three days PREDNISONE 94314640945 No Longer Active Carlton Hu MD Active AUGMENTIN 875-125 MG ORAL TABLET 1 po BID x 10 days 16/03/22 AMOXICILLIN-POT CLAVULANATE 55623881709 No Longer Active Elise Garcia INSPECTOR PENETRANT Active TERBINAFINE HCL 250 MG ORAL TABLET 1 qDay for nail fungus 7 TERBINAFINE HCL 57502774209 No Longer Active Carlton Hu MD A ctive AMOXICILLIN 500 MG ORAL CAPSULE 1 cap by mouth three times a day AMOXICILLIN 68307577942 No Longer Active Carlton Hu MD Active ELMIRON 100 MG ORAL CAPSULE 2 tablets in the am and 1 tablet at hs PENTOSAN POLYSULFATE SODIUM 95612871159 No Longer Active Robert jade Hu MD Active MUCINEX D 60-600 MG ORAL TABLET EXTENDED RELEASE 12 HOUR 1 t ab po q am PSEUDOEPHEDRINE-GUAIFENESIN 79261966572 No Longer Act nael Carlton Hu MD Active MUCINEX DM MAXIMUM STRENGTH 60-1200 MG ORAL TABLET EXT ENDED RELEASE 12 HOUR 1 tab po q am DEXTROMETHORPHAN-GUAIFENESIN 29534891190 No Longer Active Carlton Hu MD Active TUSSIONEX PENNKINETIC ER 10-8 MG/5ML ORAL SUSPENSION E XTENDED RELEASE 5ml po q12hr PRN Cough HYDROCOD POLST-CHLORPHEN POLST 5 5928776070 No Longer Active Carlton Hu MD Active POTASSIUM CHLORIDE ER 20 MEQ ORAL TABLET EXTENDED RELE ASE Take 1 by mouth 4 times daily for 7 days POTASSIUM CHLORIDE 41726774446 No Longer Active Carlton Hu MD Active ZITHROMAX 250 MG ORAL TABLET 2 po today, then 1 po q days 2-5 20 14/09/04 AZITHROMYCIN 20784144612 No Longer Active Elise Areseema INSPECTOR PENETRANT Active TUSSIONEX PENNKINETIC ER 10-8 MG/5ML ORAL SUSPENSION E XTENDED RELEASE 5 ml twice a day as needed for cough HYDROCOD POLST-CHLORPH EN POLST 85777008795 No Longer Active Elise Garcia APRN Active MONTELUKAST SODIUM 10 MG ORAL TABLET 1 po daily for Allergy MONTELUKAST SODIUM 93668591995 Active Carlton Hu MD Ac tive TUSSIONEX PENNKINETIC ER 10-8 MG/5ML ORAL SUSPENSION E XTENDED RELEASE 5ml po q12hr PRN Cough HYDROCOD POLST-CHLORPHEN POLST 5 5806540218 No Longer Active Hugo Restrepo MD Active GABAPENTIN 100 MG ORAL CAPSULE 1 po BID for fibromyalgia GABAPENTIN 41342832087 Active ALFREDO Holly Active LYRICA 100 MG ORAL CAPSULE Take 1 tab po BID for fibromyalgia 20 11/08/21 PREGABALIN 63452257896 No Longer Active Elise Garcia APRN A ctive PREDNISONE 20 MG ORAL TABLET 2 tabs daily for 3 days, 1 tab daily for 3 days, 1/2 tab daily for 2 days PREDNISONE 60333407935 No Longer Active Atsridina Gege KHAN Active TUSSIONEX PENNKINETIC ER 10-8 MG/5ML ORAL SUSPENSION E XTENDED RELEASE 5 mL PO q 12 hrs PRN cough HYDROCOD POLST-CHLORPHEN POLST 397674 79167 No Longer Active Jillina Frazell INSPECTOR PENETRANT Active FLUTICASONE PROPIONATE 50 MCG/ACT NASAL SUSPENSION 2 s prays each nostril daily until bottle is empty FLUTICASONE PROPIONATE 027858305 99 No Longer Active Jillina Frazell INSPECTOR PENETRANT Active ASMANEX 60 METERED DOSES 220 MCG/INH INHALATION AEROSO L POWDER BREATH ACTIVATED 1 puff bid with rinse after MOMETASONE FUROATE 1729360 4102 No Longer Active Jillina Frazell INSPECTOR PENETRANT Active ZITHROMAX Z-REYNA 250 MG ORAL TABLET 2 today, then 1 daily for 4 d ays AZITHROMYCIN 62184006259 No Longer Active Elise Garcia APRN Active TUSSIONEX PENNKINETIC ER 10-8 MG/5ML ORAL SUSPENSION E XTENDED RELEASE 5ml po q12hr PRN Cough HYDROCOD POLST-CHLORPHEN POLST 5 0089263632 No Longer Active Elise Garcia APRN Active PREDNISONE 20 MG ORAL TABLET 2 tabs daily for 3 days, 1 tab daily for 3 days, 1/2 tab daily for 2 days PREDNISONE 36797287858 No Longer Active Diya De Guzman APRN Active AMOXICILLIN 500 MG ORAL CAPSULE 2 po BID x 10 days 201 09/29/08 AMOXICILLIN 39977878511 No Longer Active Diya De Guzman APRN Act nael SINGULAIR 10 MG ORAL TABLET 1 po qday for allergies 20 14/01/12 MONTELUKAST SODIUM 12119226626 No Longer Active Carlton Hu MD Active LEVAQUIN 500 MG ORAL TABLET 1 tablet by mouth daily 20 13/09/24 LEVOFLOXACIN 68778829023 No Longer Active Carlton Hu MD Acti ve FLUTICASONE PROPIONATE 50 MCG/ACT NASAL SUSPENSION 2 s prays each nostril daily for 2 weeks, then 1 spray each nostril daily. FLUTICASONE PROPIONATE 11310701859 Active Carlton Hu MD Active ZITHROMAX 250 MG ORAL TABLET 2 po today, then 1 po q days 2-5 20 13/08/10 AZITHROMYCIN 40207171375 No Longer Active Elise Garcia APRN Active XANAX 0.5 MG ORAL TABLET one tablet by mouth daily prn anxiety 2015 ALPRAZOLAM 48119241057 Active ALFREDO Holly Active CEFDINIR 300 MG ORAL CAPSULE 1 po BID x 10 days CEFDINIR 75418479283 No Longer Active Carlton Hu MD Active ZOCOR 40 MG ORAL TABLET 1 tab by mouth daily SI MVASTATIN 87950686617 No Longer Active Carlton Hu MD Active CYCLOBENZAPRINE HCL 10 MG ORAL TABLET 1 tablet by mouth BID prn had pain CYCLOBENZAPRINE HCL 27468795243 No Longer Active Jayden Hu MD Active LEVOFLOXACIN 500 MG ORAL TABLET 1 tab PO daily x 10 days LEVOFLOXACIN 53640456968 No Longer Active Carlton Hu MD Acti ve PREDNISONE 20 MG ORAL TABLET 3 tab PO qd x 2d, 2 tab P O qd x 2d, 1 tab PO qd x 2d, 1/2 tab PO qd x 2d PREDNISONE 27760311061 No Lo nger Active Carlton Hu MD Active FLUTICASONE PROPIONATE 50 MCG/ACT NASAL SUSPENSION 1 t o 2 sprays each nostril daily FLUTICASONE PROPIONATE 06528664364 No Longer Ac tive Blaine HERNANDEZ Active CHERATUSSIN AC 100-10 MG/5ML ORAL SYRUP 1 tsp by mouth every 4 hours as needed for cough GUAIFENESIN-CODEINE 70800721944 No Longe r Active Blaine HERNANDEZ Active PROMETHAZINE-CODEINE 6.25-10 MG/5ML ORAL SYRUP 1 tsp b y mouth every 6 hours if needed for cough PROMETHAZINE-CODEINE 71737806283 No Longer Active Blaine HERNANDEZ Active CHERATUSSIN AC 100-10 MG/5ML ORAL SYRUP 1 tsp by mouth every 4 hours as needed for cough GUAIFENESIN-CODEINE 96925031310 No Longe r Active Blaine HERNANDEZ Active ZITHROMAX Z-REYNA 250 MG ORAL TABLET 2 today, then 1 daily for 4 d ays AZITHROMYCIN 72583027467 No Longer Active Columba Adhikari nael ZITHROMAX 250 MG ORAL TABLET 2 po today, then 1 po q days 2-5 20 14/03/21 AZITHROMYCIN 97896865915 No Longer Active Carlton Hu MD Active ZITHROMAX Z-REYNA 250 MG ORAL TABLET 2 today, then 1 daily for 4 d ays AZITHROMYCIN 03359892875 No Longer Active Columba Parrish Act nael AUGMENTIN 875-125 MG ORAL TABLET 1 po BID x 10 days 13/01/20 AMOXICILLIN-POT CLAVULANATE 68007747919 No Longer Active Diya Sernabrayan KHAN Active ZITHROMAX 250 MG ORAL TABLET 2 po today, then 1 po q days 2-5 20 12/08/14 AZITHROMYCIN 18313409077 No Longer Active Carlton Hu MD Active TRAMADOL HCL 50 MG ORAL TABLET 1 po tid with ES Tylenol TRAMADOL HCL 13429093273 Active Carlton Hu MD Active PREMARIN 0.625 MG ORAL TABLET TAKE 1 TAB BY MOUTH DAILY ESTROGENS CONJUGATED 00198750888 No Longer Active Ridge Bess DO A ctive CYMBALTA 30 MG ORAL CAPSULE DELAYED RELEASE PARTICLES 1 cap by mouth daily DULOXETINE HCL 85563769727 No Longer Active Ridge tam DO Active AMOXICILLIN 500 MG ORAL CAPSULE 1 tab by mouth 3 times daily x 10 days AMOXICILLIN 04458932179 No Longer Active Carlton bustamante MD Active AMOXICILLIN 500 MG ORAL CAPSULE 1 tab by mouth 3 times daily x 10 days AMOXICILLIN 99692031061 No Longer Active Carlton bustamante MD Active PROMETHAZINE-CODEINE 6.25-10 MG/5ML ORAL SYRUP 1 tsp b y mouth every 8 hours prn cough PROMETHAZINE-CODEINE 01763686848 No Longer Acti ve Carlton Hu MD Active MEDROL 4 MG ORAL TABLET THERAPY PACK 6 pills x 1 day, then 5 pills x 1 day then 4 pills x 1 day, then 3 pills x 1 day, then 2 pills x 1 day, then 1 pill x 1 day, then stop METHYLPREDNISOLONE 02549309090 No Long er Active Perez Mora MD Active AZITHROMYCIN 250 MG ORAL TABLET 2 po qd x 1 day, then 1 po q d x 4 days AZITHROMYCIN 47481155203 No Longer Active Perez Ambriz MD Active SYMBICORT 160-4.5 MCG/ACT INHALATION AEROSOL 2 puffs bid wit h rinse after BUDESONIDE-FORMOTEROL FUMARATE 82302876821 N o Longer Active Perez Mora MD Active LYRICA 75 MG ORAL CAPSULE TAKE 1 CAPSULE BY MOUTH TWICE DAILY PREGABALIN 34798655221 No Longer Active Carlton Hu MD Acti ve TOPAMAX 25 MG ORAL TABLET 1 qHS x 1 week, then 1 BID x 1 week, then 1 qAM and 2 qHS x 1 week, then 2 BID (migraine prevention) T OPIRAMATE 68604898949 No Longer Active Jerica FUENTES Active TOPAMAX 50 MG ORAL TABLET take 1 tab po BID for migraines. 07/02 TOPIRAMATE 63237698655 No Longer Active Jerica FUENTES Active TRIAMCINOLONE ACETONIDE 0.1 % EXTERNAL CREAM apply three roger es daily prn rash TRIAMCINOLONE ACETONIDE 59790608930 No Longer Active Calrton Hu MD Active PAXIL 40 MG ORAL TABLET take 1 tab po qday for depression 0 PAROXETINE HCL 61044107667 Active Carlton Hu MD Active CHERATUSSIN AC 100-10 MG/5ML ORAL SYRUP 5ml po q6hr PRN Cough 20 13/04/14 GUAIFENESIN-CODEINE 89019853223 No Longer Active Carlton Hu MD Active MEDROL 4 MG ORAL TABLET THERAPY PACK 6 tabs on day 1, 5 tabs on day 2, 4 tabs on day 3, 3 tabs on day 4, 2 tabs on day 5, 1 tab on day 6 2013 METHYLPREDNISOLONE 01494262636 No Longer Active Perez Mora MD Active AZITHROMYCIN 250 MG ORAL TABLET 2 po qd x 1 day, then 1 po q d x 4 days AZITHROMYCIN 89462910094 No Longer Active Perez Ambriz MD Active PROPRANOLOL HCL 60 MG ORAL TABLET 1 PO Q D PROPRANOLOL HCL 58904802060 No Longer Active Perez Mora MD Activ e CHERATUSSIN AC 100-10 MG/5ML ORAL SYRUP take one tsp po Q 6h ours prn cough GUAIFENESIN-CODEINE 47492045740 No Longer Active Zia Mora MD Active AUGMENTIN 875-125 MG ORAL TABLET 1 tab by mouth twice daily with food AMOXICILLIN-POT CLAVULANATE 40762956689 No Longer Act nael Perez Mora MD Active CHERATUSSIN AC 100-10 MG/5ML ORAL SYRUP 1 tsp by mouth every 4 hours as needed for cough GUAIFENESIN-CODEINE 83736589877 No Longe r Active Hugo Restrepo MD Active ACETAMINOPHEN-CODEINE #3 300-30 MG ORAL TABLET 1 PO Q 4-6 HRS UT N PAIN ACETAMINOPHEN-CODEINE 81174908422 No Longer Active Hugo Restrepo MD Active LEVAQUIN 500 MG ORAL TABLET take one po QD LEVO FLOXACIN 32933083232 No Longer Active Griffin HERNANDEZ Active PREDNISONE 20 MG ORAL TABLET Take 3 tabs daily for 3 d ays, 2 tabs daily for 3 days, 1 tab daily for 3 days, 1/2 tab daily for 3 days 11/07 PREDNISONE 49883955385 No Longer Active Carlton Hu MD Acti ve AVELOX 400 MG ORAL TABLET 1 tab by mouth daily MOXIFLOXACIN HCL 88297289790 No Longer Active Carlton Hu MD Active CHERATUSSIN AC 100-10 MG/5ML ORAL SYRUP 1 tsp by mouth every 4 hours as needed for cough GUAIFENESIN-CODEINE 92700412267 No Longe r Active Hugo Restrepo MD Active AVELOX 400 MG ORAL TABLET 1 tab by mouth daily MOXIFLOXACIN HCL 40618428536 No Longer Active Marcy De La Rosa MD PhD Active TERBINAFINE HCL 250 MG ORAL TABLET 1 qDay T ERBINAFINE HCL 81608836165 No Longer Active Marcy De La Rosa MD PhD Active CHERATUSSIN AC 100-10 MG/5ML ORAL SYRUP 1 tsp by mouth every 4 hours as needed for cough GUAIFENESIN-CODEINE 57845176941 No Longe r Active Marcy De La Rosa MD PhD Active AVELOX 400 MG ORAL TABLET 1 tab by mouth daily MOXIFLOXACIN HCL 71623198526 No Longer Active Marcy De La Rosa MD PhD Active HYDROCODONE-ACETAMINOPHEN 5-325 MG ORAL TABLET 1 po q 6hr PRN co ugh HYDROCODONE-ACETAMINOPHEN 51285595601 No Longer Active Marcy De La Rosa MD PhD Active PREDNISONE 20 MG ORAL TABLET 2 tabs daily for 3 days, 1 tab daily for 3 days, 1/2 tab daily for 2 days PREDNISONE 91776959707 No Longer Active Carlton uH MD Active CEFDINIR 300 MG ORAL CAPSULE by mouth twice a day 2011 CEFDINIR 95402916984 No Longer Active Carlton Hu MD Acti ve HYDROCHLOROTHIAZIDE 25 MG ORAL TABLET 1 TAB PO DAILY HYDROCHLOROTHIAZIDE 27597607166 Active Carlton Hu MD A ctive ACETAMINOPHEN-CODEINE #3 300-30 MG ORAL TABLET 1 tablet po q 4-6 hrs prn pain ACETAMINOPHEN-CODEINE 48215448148 No Longer Active Ridge Bess DO Active ZITHROMAX 250 MG ORAL TABLET 2 po today, then 1 po q days 2-5 20 03/07/07 AZITHROMYCIN 56978844679 No Longer Active Carlton Hu MD Active CHERATUSSIN AC 100-10 MG/5ML ORAL SYRUP take 1 tsp po q4-6 h ours prn cough GUAIFENESIN-CODEINE 63657638793 No Longer Active Jayden Hu MD Active ACETAMINOPHEN-CODEINE #3 300-30 MG ORAL TABLET 1 PO Q 4-6 HR PRN PAIN ACETAMINOPHEN-CODEINE 00695111046 No Longer Active Arnol Hu MD Active LORTAB 7.5-500 MG/15ML ORAL ELIXIR 7.5 ml po q 4 hour prn cough HYDROCODONE-ACETAMINOPHEN 84919436696 No Longer Active Carlton Hu MD Active PREDNISONE 20 MG ORAL TABLET 1 po bid 3 days, then 1 po q day 3 days PREDNISONE 03854202004 No Longer Active Carlton Hu MD Active CEFDINIR 300 MG ORAL CAPSULE by mouth twice a day 2011 CEFDINIR 15758955617 No Longer Active Carlton Hu MD Acti ve CEFDINIR 300 MG ORAL CAPSULE by mouth twice a day 2010 CEFDINIR 66570686879 No Longer Active Carlton Hu MD Acti ve CEFDINIR 300 MG ORAL CAPSULE by mouth twice a day 2010 CEFDINIR 07986895157 No Longer Active Carlton Hu MD Acti ve TESSALON PERLES 100 MG ORAL CAPSULE 1 tablet by mouth 3 times daily as needed for cough BENZONATATE 41100354220 No Longer Active Carlton Hu MD Active CEFDINIR 300 MG ORAL CAPSULE by mouth twice a day 2010 CEFDINIR 61518277430 No Longer Active Carlton Hu MD Acti ve ZITHROMAX Z-REYNA 250 MG ORAL TABLET 2 today, then 1 daily for 4 d ays AZITHROMYCIN 32604842822 No Longer Active Hugo Restrepo MD Active TESSALON PERLES 100 MG ORAL CAPSULE 1 tablet by mouth 3 times daily as needed for cough TESSALON PERLES 100 MG ORAL CAPSULE 32743 7 BENZONATATE Inactive PREDNISONE 20 MG ORAL TABLET 1 po bid 3 days, then 1 po q day 3 days PREDNISONE 20 MG ORAL TABLET 857495 PREDNISONE Sherman ctive LORTAB 7.5-500 MG/15ML ORAL ELIXIR 7.5 [...] cough CHERATUSSIN AC 100-10 MG/5ML ORAL SYRUP 465214 GUAIFENESIN-CODEINE Inactive ACETAMINOPHEN-CODEINE #3 300-30 MG ORAL TABLET 1 tablet po q 4-6 hrs prn pain ACETAMINOPHEN-CODEINE #3 300-30 MG ORAL TABLET ACETAMINOPHEN-CODEINE Inactive HYDROCODONE-ACETAMINOPHEN 5-325 MG ORAL TABLET 1 po q 6hr PRN co ugh HYDROCODONE-ACETAMINOPHEN 5-325 MG ORAL TABLET 804683 HYDROCODONE-ACETAMINOPHEN Inactive AVELOX 400 MG ORAL TABLET 1 tab by mouth daily AVELOX 400 MG ORAL TABLET 880720 MOXIFLOXACIN HCL Inactive CHERATUSSIN AC 100-10 MG/5ML ORAL SYRUP 1 tsp by mouth every 4 hours as needed for cough CHERATUSSIN AC 100-10 MG/5ML ORAL SYRUP 9 64678 GUAIFENESIN-CODEINE Inactive TERBINAFINE HCL 250 MG ORAL TABLET 1 qDay 07/08 TERBINAFINE HCL 250 MG ORAL TABLET 025991 TERBINAFINE HCL Inactive CHERATUSSIN AC 100-10 MG/5ML ORAL SYRUP 1 tsp by mouth every 4 hours as needed for cough CHERATUSSIN AC 100-10 MG/5ML ORAL SYRUP 9 41130 GUAIFENESIN-CODEINE Inactive ACETAMINOPHEN-CODEINE #3 300-30 MG ORAL TABLET 1 PO Q 4-6 HRS UT N PAIN ACETAMINOPHEN-CODEINE #3 300-30 MG ORAL TABLET ACETAMINOPHEN-CODEINE Inactive CHERATUSSIN AC 100-10 MG/5ML ORAL SYRUP 1 tsp by mouth every 4 hours as needed for cough CHERATUSSIN AC 100-10 MG/5ML ORAL SYRUP 9 70301 GUAIFENESIN-CODEINE Inactive AUGMENTIN 875-125 MG ORAL TABLET 1 tab by mouth twice daily with food AUGMENTIN 875-125 MG ORAL TABLET AMOXICIL MADELINE-POT CLAVULANATE Inactive CHERATUSSIN AC 100-10 MG/5ML ORAL SYRUP take one tsp po Q 6h ours prn cough CHERATUSSIN AC 100-10 MG/5ML ORAL SYRUP 896054 GUAIFENESIN-CODEINE Inactive PROPRANOLOL HCL 60 MG ORAL TABLET 1 PO Q D PROPRANOLOL HCL 60 MG ORAL TABLET 178804 PROPRANOLOL HCL Inactive TOPAMAX 50 MG ORAL TABLET take 1 tab po BID for migraines. 07/02 TOPAMAX 50 MG ORAL TABLET 827291 TOPIRAMATE Inacti ve TOPAMAX 25 MG ORAL TABLET 1 qHS x 1 week, then 1 BID x 1 week, then 1 qAM and 2 qHS x 1 week, then 2 BID (migraine prevention) TOPAMAX 25 MG ORAL TABLET 924948 TOPIRAMATE Inactive LYRICA 75 MG ORAL CAPSULE TAKE 1 CAPSULE BY MOUTH TWICE DAILY LYRICA 75 MG ORAL CAPSULE PREGABALIN Inactive SYMBICORT 160-4.5 MCG/ACT INHALATION AEROSOL 2 puffs bid wit h rinse after SYMBICORT 160-4.5 MCG/ACT INHALATION AEROSOL BUDESONIDE- FORMOTEROL FUMARATE Inactive PROMETHAZINE-CODEINE 6.25-10 MG/5ML ORAL SYRUP 1 tsp b y mouth every 8 hours prn cough PROMETHAZINE-CODEINE 6.25-10 MG/ 5ML ORAL SYRUP 507203 PROMETHAZINE-CODEINE Inactive CYMBALTA 30 MG ORAL CAPSULE DELAYED RELEASE PARTICLES 1 cap by mouth daily CYMBALTA 30 MG ORAL CAPSULE DELAYED RELE ASE PARTICLES 585829 DULOXETINE HCL Inactive PREMARIN 0.625 MG ORAL TABLET TAKE 1 TAB BY MOUTH DAILY PREMARIN 0.625 MG ORAL TABLET ESTROGENS CONJUGATED Inactive CHERATUSSIN AC 100-10 MG/5ML ORAL SYRUP 1 tsp by mouth every 4 hours as needed for cough CHERATUSSIN AC 100-10 MG/5ML ORAL SYRUP 9 85356 GUAIFENESIN-CODEINE Inactive PROMETHAZINE-CODEINE 6.25-10 MG/5ML ORAL SYRUP 1 tsp b y mouth every 6 hours if needed for cough PROMETHAZINE-CODEINE 6.25-10 MG/5ML ORAL SYRUP 354350 PROMETHAZINE-CODEINE Inactive CHERATUSSIN AC 100-10 MG/5ML ORAL SYRUP 1 tsp by mouth every 4 hours as needed for cough CHERATUSSIN AC 100-10 MG/5ML ORAL SYRUP 9 69595 GUAIFENESIN-CODEINE Inactive FLUTICASONE PROPIONATE 50 MCG/ACT NASAL SUSPENSION 1 t o 2 sprays each nostril daily FLUTICASONE PROPIONATE 50 MCG/AC T NASAL SUSPENSION 9244658 FLUTICASONE PROPIONATE Inactive PREDNISONE 20 MG ORAL TABLET 3 tab PO qd x 2d, 2 tab P O qd x 2d, 1 tab PO qd x 2d, 1/2 tab PO qd x 2d PREDNISONE 20 MG ORAL TAB LET 181825 PREDNISONE Inactive LEVOFLOXACIN 500 MG ORAL TABLET 1 tab PO daily x 10 days LEVOFLOXACIN 500 MG ORAL TABLET 810371 LEVOFLOXACIN Inactive CYCLOBENZAPRINE HCL 10 MG ORAL TABLET 1 tablet by mouth BID prn had pain CYCLOBENZAPRINE HCL 10 MG ORAL TABLET 773506 CYCLOBENZAPRINE HCL Inactive ZOCOR 40 MG ORAL TABLET 1 tab by mouth daily 4 ZOCOR 40 MG ORAL TABLET 895604 SIMVASTATIN Inactive TUSSIONEX PENNKINETIC ER 10-8 MG/5ML [...] FLUTICASONE PROPIO EFE 50 MCG/ACT NASAL SUSPENSION 6443338 FLUTICASONE PROPIONATE Inactive TUSSIONEX PENNKINETIC ER 10-8 [...] three days PREDNISONE 20 MG ORAL TABLET 177302 PREDNIS ONE Inactive PROAIR HFA 108 (90 BASE) MCG/ACT INHALATION AEROSOL SO LUTION 2 puffs four times a day as needed PROAIR HFA 108 (90 B ASE) MCG/ACT INHALATION AEROSOL SOLUTION ALBUTEROL SULFATE Inactive PREDNISONE 20 MG ORAL TABLET two tabs by mouth today, then one tab by mouth days two and three and four PREDNISONE 20 MG ORAL TAB LET 382477 PREDNISONE Inactive TUSSIONEX PENNKINETIC ER 10-8 MG/5ML [...] bid 04/20 TOPAMAX 100 MG ORAL TABLET 395184 TOPIRAMATE Inactive CYMBALTA 30 MG ORAL CAPSULE DELAYED RELEASE PARTICLES 1 cap by mouth daily for depression CYMBALTA 30 MG ORAL CAPSULE DELAYED RELEASE PARTICLES 224615 DULOXETINE HCL Inactive ZITHROMAX Z-REYNA 250 MG ORAL TABLET 2 today, then 1 daily for 4 d ays ZITHROMAX Z-REYNA 250 MG ORAL TABLET 477671 AZITHROMYCIN Inactive CEFDINIR 300 MG ORAL CAPSULE by mouth twice a day 2010 CEFDINIR 300 MG ORAL CAPSULE 20020704 CEFDINIR Inactive CEFDINIR 300 MG ORAL CAPSULE by mouth twice a day 2010 CEFDINIR 300 MG ORAL CAPSULE 782390 CEFDINIR Inactive CEFDINIR 300 MG ORAL CAPSULE by mouth twice a day 2010 CEFDINIR 300 MG ORAL CAPSULE 193937 CEFDINIR Inactive CEFDINIR 300 MG ORAL CAPSULE by mouth twice a day 2011 CEFDINIR 300 MG ORAL CAPSULE 118079 CEFDINIR Inactive ZITHROMAX 250 MG ORAL TABLET 2 po today, then 1 po q days 2-5 20 03/07/07 ZITHROMAX 250 MG ORAL TABLET 252305 AZITHROMYCIN Sherman ctive CEFDINIR 300 MG ORAL CAPSULE by mouth twice a day 2011 CEFDINIR 300 MG ORAL CAPSULE 20020704 CEFDINIR Inactive PREDNISONE 20 MG ORAL TABLET 2 tabs daily for 3 days, 1 tab daily for 3 days, 1/2 tab daily for 2 days PREDNISONE 20 MG ORAL T ABLET 989711 PREDNISONE Inactive AVELOX 400 MG ORAL TABLET 1 tab by mouth daily AVELOX 400 MG ORAL TABLET 933235 MOXIFLOXACIN HCL Inactive AVELOX 400 MG ORAL TABLET 1 tab by mouth daily AVELOX 400 MG ORAL TABLET 359958 MOXIFLOXACIN HCL Inactive PREDNISONE 20 MG ORAL TABLET Take 3 tabs daily for 3 d ays, 2 tabs daily for 3 days, 1 tab daily for 3 days, 1/2 tab daily for 3 days 11/07 PREDNISONE 20 MG ORAL TABLET 795489 PREDNISONE Inactive LEVAQUIN 500 MG ORAL TABLET take one po QD LEVAQUIN 500 MG ORAL TABLET 921062 LEVOFLOXACIN Inactive AZITHROMYCIN 250 MG ORAL TABLET 2 po qd x 1 day, then 1 po q d x 4 days AZITHROMYCIN 250 MG ORAL TABLET [id number] AZITHROMY GIOVANNI Inactive MEDROL 4 MG ORAL TABLET THERAPY PACK 6 tabs on day 1, 5 tabs on day 2, 4 tabs on day 3, 3 tabs on day 4, 2 tabs on day 5, 1 tab on day 6 2013 MEDROL 4 MG ORAL TABLET THERAPY PACK [id number] METHYLPREDNISOLONE Greer ctive CHERATUSSIN AC 100-10 MG/5ML ORAL SYRUP 5ml po q6hr PRN Cough 20 13/04/14 CHERATUSSIN AC 100-10 MG/5ML ORAL SYRUP 405393 GUAIFENE SIN-CODEINE Inactive TRIAMCINOLONE ACETONIDE 0.1 % EXTERNAL CREAM apply three roger es daily prn rash TRIAMCINOLONE ACETONIDE 0.1 % EXTERNAL CREAM 101 4314 TRIAMCINOLONE ACETONIDE Inactive AZITHROMYCIN 250 MG ORAL TABLET 2 po qd x 1 day, then 1 po q d x 4 days AZITHROMYCIN 250 MG ORAL TABLET [id number] AZITHROMY GIOVANNI Inactive MEDROL 4 MG ORAL TABLET THERAPY PACK 6 pills x 1 day, then 5 pills x 1 day then 4 pills x 1 day, then 3 pills x 1 day, then 2 pills x 1 day, then 1 pill x 1 day, then stop MEDROL 4 MG ORAL TABLET THERAPY PACK 575763 METHYLPREDNISOLONE Inactive AMOXICILLIN 500 MG ORAL CAPSULE 1 tab by mouth 3 times daily x 10 days AMOXICILLIN 500 MG ORAL CAPSULE 918470 AMOXICILL IN Inactive AMOXICILLIN 500 MG ORAL CAPSULE 1 tab by mouth 3 times daily x 10 days AMOXICILLIN 500 MG ORAL CAPSULE 854201 AMOXICILL IN Inactive ZITHROMAX 250 MG ORAL TABLET 2 po today, then 1 po q days 2-5 20 12/08/14 ZITHROMAX 250 MG ORAL TABLET 922971 AZITHROMYCIN Sherman ctive AUGMENTIN 875-125 MG ORAL TABLET 1 po BID x 10 days 13/01/20 AUGMENTIN 875-125 MG ORAL TABLET AMOXICILLIN-POT CLAVULANATE Inactive ZITHROMAX Z-REYNA 250 MG ORAL TABLET 2 today, then 1 daily for 4 d ays ZITHROMAX Z-REYNA 250 MG ORAL TABLET 434661 AZITHROMYCIN Inactive ZITHROMAX 250 MG ORAL TABLET 2 po today, then 1 po q days 2-5 20 14/03/21 ZITHROMAX 250 MG ORAL TABLET 534063 AZITHROMYCIN Sherman ctive ZITHROMAX Z-REYNA 250 MG ORAL TABLET 2 today, then 1 daily for 4 d ays ZITHROMAX Z-REYNA 250 MG ORAL TABLET 584772 AZITHROMYCIN Inactive CEFDINIR 300 MG ORAL CAPSULE 1 po BID x 10 days 06/21 CEFDINIR 300 MG ORAL CAPSULE 236162 CEFDINIR Inactive ZITHROMAX 250 MG ORAL TABLET 2 po today, then 1 po q days 2-5 20 13/08/10 ZITHROMAX 250 MG ORAL TABLET 796937 AZITHROMYCIN Greer ctive LEVAQUIN 500 MG ORAL TABLET 1 tablet by mouth daily 20 13/09/24 LEVAQUIN 500 MG ORAL TABLET 563000 LEVOFLOXACIN Inactive SINGULAIR 10 MG ORAL TABLET 1 po qday for allergies 20 14/01/12 SINGULAIR 10 MG ORAL TABLET 20010504 MONTELUKAST SODIUM Inactive AMOXICILLIN 500 MG ORAL CAPSULE 2 po BID x 10 days 201 09/29/08 AMOXICILLIN 500 MG ORAL CAPSULE 749947 AMOXICILLIN Inactive PREDNISONE 20 MG ORAL TABLET 2 tabs daily for 3 days, 1 tab daily for 3 days, 1/2 tab daily for 2 days PREDNISONE 20 MG ORAL T ABLET 086727 PREDNISONE Inactive ZITHROMAX Z-REYNA 250 MG ORAL TABLET 2 today, then 1 daily for 4 d ays ZITHROMAX Z-REYNA 250 MG ORAL TABLET 447443 AZITHROMYCIN Inactive PREDNISONE 20 MG ORAL TABLET 2 tabs daily for 3 days, 1 tab daily for 3 days, 1/2 tab daily for 2 days PREDNISONE 20 MG ORAL T ABLET 597642 PREDNISONE Inactive ZITHROMAX 250 MG ORAL TABLET 2 po today, then 1 po q days 2-5 20 14/09/04 ZITHROMAX 250 MG ORAL TABLET 544654 AZITHROMYCIN Greer ctive AMOXICILLIN 500 MG ORAL CAPSULE 1 cap by mouth three times a day AMOXICILLIN 500 MG ORAL CAPSULE 727606 AMOXICILLIN Inactive TERBINAFINE HCL 250 MG ORAL TABLET 1 qDay for nail fungus 7 TERBINAFINE HCL 250 MG ORAL TABLET 131616 TERBINAFINE HCL Inact nael AUGMENTIN 875-125 MG ORAL TABLET 1 po BID x 10 days 16/03/22 AUGMENTIN 875-125 MG ORAL TABLET AMOXICILLIN-POT CLAVULANATE Inactive PREDNISONE 20 MG ORAL TABLET 2 po qd x 5 days PREDNISONE 20 MG ORAL TABLET 138903 PREDNISONE Inactive AZITHROMYCIN 250 MG ORAL TABLET 2 po qd x 1 day, then 1 po q d x 4 days AZITHROMYCIN 250 MG ORAL TABLET 502547 AZITHROMY GIOVANNI Inactive PREDNISONE 50 MG ORAL TABLET Take 50 mg dialy for 6 day s 7 PREDNISONE 50 MG ORAL TABLET 222259 PREDNISONE Inactive AUGMENTIN 875-125 MG ORAL TABLET 1 po BID x 10 days 18/04/16 AUGMENTIN 875-125 MG ORAL TABLET AMOXICILLIN-POT CLAVULANATE Inactive DOXYCYCLINE HYCLATE 100 MG ORAL CAPSULE 1 cap by mouth twice latasha ly DOXYCYCLINE HYCLATE 100 MG ORAL CAPSULE 5898167 DOXYCYCL INE HYCLATE Inactive PREDNISONE 20 MG ORAL TABLET Take 2 tabs day 1 and 2 and 1 t ab days 3 and 4 PREDNISONE 20 MG ORAL TABLET 297396 PREDNISONE Inactive AMOXICILLIN 500 MG ORAL CAPSULE 1 cap by mouth twice daily 10/21 AMOXICILLIN 500 MG ORAL CAPSULE 224525 AMOXICILLIN Inactive TRIAMCINOLONE ACETONIDE 0.1 % EXTERNAL OINTMENT Apply to affected areas TID PRN Rash/Itching for up 2 weeks TRIAMCINOLON E ACETONIDE 0.1 % EXTERNAL OINTMENT 3909655 TRIAMCINOLONE ACETONIDE Inactive Vital Signs Date Name [...] - Chem istry sodium, serum 139 mmol/L 330-859 1598/10/12 potassium, serum 3.8 mmol/L 3.5-5.2 chloride, serum [...] negative Encounters Code Encounter Date Provider Facility CPT-08463 Level 3 Est. Patient 13:57:55 CDT David lion [facility] CPT-06285 Level 3 Est. Patient 16:08:07 VINAYT David lion [facility] CPT-55150 Level 3 Est. Patient 16:53:54 VINAYT May haas MD [facility] CPT-35049 [id number] Vst-Est Level IV 08:41:08 Jadon Santos MD [facility] CPT-47627 Level 3 Est. Patient 09:46:49 SCUTCHER TENDER David Antonino riveralidia [facility] CPT-26252 [id number] Vst-Est Level III 11:12:16 CDT Yanet Bess DO [facility] CPT-47518 Level 3 Est. Patient 11:34:49 SCUTCHER TENDER Perez Mora MD [facility] CPT-05168 Level 4 Est. Patient 09:51:32 SCUTCHER TENDER Carlton rich MD [facility] CPT-99180 Level 3 Est. Patient 10:26:00 SCUTCHER TENDER Elise Are [facility] CPT-80459 Level 3 Est. Patient 13:35:41 SCUTCHER TENDER Carlton rich MD [facility] CPT-90714 Level 3 Est. Patient 10:03:52 SCUTCHER TENDER Carlton rich MD [facility] CPT-57279 Level 3 Est. Patient 12:17:50 CDT Hugo Restrepo MD [facility] CPT-20899 Level 3 Est. Patient 13:42:38 CDT Elise Are [facility] CPT-14702 Level 3 Est. Patient 13:23:51 CDT Diya cobain [facility] CPT-62559 Level 3 Est. Patient 14:22:19 SCUTCHER TENDER Diya cobian [facility] CPT-66832 Level 3 Est. Patient 10:11:46 CDT Carlton rich MD [facility] CPT-13326 Level 3 Est. Patient 17:29:43 CDT Elise Are [facility] CPT-34596 Level 3 Est. Patient 11:58:06 CDT Elise Are [facility] CPT-09887 Level 4 Est. Patient 14:36:51 CDT Carlton rich MD [facility] CPT-73343 Level 3 Est. Patient 18:16:00 SCUTCHER TENDER Blaine W Cloven [facility] CPT-01982 Level 3 Est. Patient 09:45:49 SCUTCHER TENDER Carlton rich MD [facility]-18600 Level 3 Est. Patient 13:19:20 CDT Carlton rich MD [facility]-74723 Level 3 Est. Patient 13:06:43 CDT Ridge tam DO [facility] CPT-37974 Level 3 Est. Patient 10:03:07 CDT Perez Mora MD [facility]-76386 Level 3 Est. Patient 19:50:35 SCUTCHER TENDER Carlton rich MD [facility]-35965 Level 4 Est. Patient 18:05:01 SCUTCHER TENDER Carlton rich MD [facility]-65647 Level 3 Est. Patient 10:45:55 SCUTCHER TENDER Hugo Restrepo MD [facility]-80320 Level 3 Est. Patient 14:12:49 CDT Griffin lincoln [facility]-15089 Level 3 Est. Patient 17:37:24 CDT Carlton rich MD [facility]-67510 Level 3 Est. Patient 16:51:54 CDT Carlton rich MD [facility]-16106 Level 3 Est. Patient 12:18:11 CDT Hugo Restrepo MD [facility]-56136 Level 3 Est. Patient 11:30:25 CDT Marcy crisostomo MD PhD [facility]-17738 Level 3 Est. Patient 12:00:47 SCUTCHER TENDER Carlton rich MD [facility]-82539 Level 3 Est. Patient 16:31:06 SCUTCHER TENDER Carlton rich MD [facility]-92144 Level 3 Est. Patient 16:23:24 SCUTCHER TENDER Ridge tam [facility] CPT-09863 Level 3 Est. Patient 12:34:12 CDT Carlton rich MD [facility] CPT-05712 Level 2 Est. Patient 15:43:33 CDT Robi armstrong MD [facility] CPT-49879 Level 4 Est. Patient 14:04:44 CDT Carlton rich MD [facility] CPT-08036 Level 3 Est. Patient 05:47:59 CDT Ridge tam [facility] CPT-91567 Level 3 Est. Patient 13:12:53 SCUTCHER TENDER Carlton rich MD [facility] CPT-86656 Level 3 Est. Patient 14:26:53 CDT Hugo Restrepo MD [facility] Procedures Code Procedure Name Date Entry Date Standard Desc ription CPT-000 Give Appropriate Flu Vaccine 14:14:31 CDT CPT-J1040 Depo Medrol 80 mg (Methyl Prednisolone A cetate) 10:42:44 CDT CPT-J1100 Decadron 8mg (Dexamethasone) 10:42:44 CDT 2 CPT-J0696 Rocephin 1gm Inj Solr 14:32:13 CDT CPT-J1020 Depo Medrol 60 mg (Methyl Prednisolone A cetate) 14:32:13 CDT CPT-J1100 Decadron 6mg (Dexamethasone) 14:32:13 CDT 2 CPT-98038 Hip bilat min 2V w AP pelvis 13:16:20 CDT 2 CPT-68119 Pelvis only 13:07:33 CDT CPT-95035 Spec Collection and Handling Fee 11:25:12 C DT CPT-04262 Fluzone Quadrivalent Intramuscular Suspe nsion 0.5 ML 14:31:55 CDT CPT-48484 Abx/Therapy Injection 13:28:47 SCUTCHER TENDER CPT-J2930 Solu Medrol 125 mg (Methyl Prednisolone Sodium Succinate) 12:00:47 SCUTCHER TENDER CPT-01658 Venipuncture Draw Fee 11:33:31 CDT CPT-98351 EKG Trac and Interp 11:21:09 CDT CPT-78751 Chest 2V Frontal and Lat 11:21:09 CDT 12/15 CPT-94967 Venipuncture Draw Fee 08:02:34 CDT CPT-13155 Chest 2V Frontal and Lat 05:47:59 CDT 06/05
--- OUTSIDE RECORDS SUMMARY | 2019-10-08 08:54 | XMS REPORT | Clinical Summary ---
Author Author Caitlin, Juliana Martinez Organization [employer] [facility] Address Unknown Phone Unavailable Allergies, Adverse Reactions, Alerts Allergy Name Reaction Description Start Date Severity Status Pr ovider No Known Allergies Lizet Gutierrez MA Conditions or Problems Problem Name Problem [...] episode, moderate 311 20 13/04/19 Active Carlton uH MD Depressive disorder, not els ewhere classified [...] URI 465.9 Inactive Ridge Bess DO Ac [place] upper respiratory infections of unspecified site Body [...] 201 12/06/23 David Lopes APRN Acute pharyngitis BRONCHITIS ICD-490 Inactive Hugo Restrepo [...] Generic Name NDC Status Provider Patient Instruction TOPAMAX 100 MG ORAL TABLET 1 by mouth twice daily TOPIRAMATE [id number] Active Columba Parrish Active TRIAMCINOLONE ACETONIDE 0.1 % EXTERNAL OINTMENT Apply to affected areas TID PRN Rash/Itching for up 2 weeks TRIAMCINOLONE ACETON KAYLA 31431758970 No Longer Active David Marianne FARMWORKER Active AMOXICILLIN 500 MG ORAL CAPSULE 1 cap by mouth twice daily 10/21 AMOXICILLIN 34019713362 No Longer Active David Marianne FARMWORKER Active ELMIRON 100 MG ORAL CAPSULE 2 capsules in the morning and 1 capsule at night PENTOSAN POLYSULFATE SODIUM 69779710836 Active Cinthia Reich art [employer]IC Active CYMBALTA 30 MG ORAL CAPSULE DELAYED RELEASE PARTICLES 1 cap by mouth daily for depression DULOXETINE HCL 00008151979 No Longer Active Carlton Hu MD Active CYMBALTA 60 MG ORAL CAPSULE DELAYED RELEASE PARTICLES 1 cap by mouth daily for mood and pain DULOXETINE HCL 11876649646 Active Carlton Hu MD Active TUSSIONEX PENNKINETIC ER 10-8 MG/5ML ORAL SUSPENSION E XTENDED RELEASE 5ml po q12hr PRN Cough HYDROCOD POLST-CHLORPHEN POLST 24494970957 Active David Marianne FARMWORKER Active PREDNISONE 20 MG ORAL TABLET Take 2 tabs day 1 and 2 and 1 t ab days 3 and 4 PREDNISONE 43955311564 No Longer Active David Marianne FARMWORKER Active DOXYCYCLINE HYCLATE 100 MG ORAL CAPSULE 1 cap by mouth twice latasha ly DOXYCYCLINE HYCLATE 57181047121 No Longer Active David Marianne FARMWORKER Active TOPAMAX 100 MG ORAL TABLET Take 1 tablet po bid TOPIRAMATE 98766223144 No Longer Active David Marianne FARMWORKER Active TUSSIONEX PENNKINETIC ER 10-8 MG/5ML ORAL SUSPENSION E XTENDED RELEASE 5ml po q12hr PRN Cough HYDROCOD POLST-CHLORPHEN POLST 5 3050112326 No Longer Active David Marianne FARMWORKER Active AUGMENTIN 875-125 MG ORAL TABLET 1 po BID x 10 days 20 18/04/16 AMOXICILLIN-POT CLAVULANATE 78448404632 No Longer Active David Marianne FARMWORKER Active PREDNISONE 50 MG ORAL TABLET Take 50 mg dialy for 6 day s 7 PREDNISONE 44773460275 No Longer Active David Marianne FARMWORKER Active TUSSIONEX PENNKINETIC ER 10-8 MG/5ML ORAL SUSPENSION E XTENDED RELEASE 5ml po q12hr PRN Cough HYDROCOD POLST-CHLORPHEN POLST 5 0519215503 No Longer Active Cherelle Torres RN Active PREDNISONE 20 MG ORAL TABLET two tabs by mouth today, then one tab by mouth days two and three and four PREDNISONE 68834877764 No Lo nger Active Cherelle Torres RN Active AZITHROMYCIN 250 MG ORAL TABLET 2 po qd x 1 day, then 1 po q d x 4 days AZITHROMYCIN 38997214786 No Longer Active Ridge Bess DO Active PREDNISONE 20 MG ORAL TABLET 2 po qd x 5 days P REDNISONE 41278916521 No Longer Active Perez Mora MD Active PROAIR HFA 108 (90 BASE) MCG/ACT INHALATION AEROSOL SO LUTION 2 puffs four times a day as needed ALBUTEROL SULFATE 06239471891 No Long er Active Becky FUENTES Active ASPIRIN 81 MG ORAL TABLET 1 po qd ASPIRIN 54727861510 Active Carlton Hu MD Active PREDNISONE 20 MG ORAL TABLET 1 tab twice daily for 3 d ay, then one daily for three days PREDNISONE 55715043874 No Longer Active Carlton Hu MD Active AUGMENTIN 875-125 MG ORAL TABLET 1 po BID x 10 days 20 16/03/22 AMOXICILLIN-POT CLAVULANATE 46992316009 No Longer Active Elise Garcia APRN Active TERBINAFINE HCL 250 MG ORAL TABLET 1 qDay for nail fungus 7 TERBINAFINE HCL 08529680220 No Longer Active Carlton Hu MD A ctive AMOXICILLIN 500 MG ORAL CAPSULE 1 cap by mouth three times a day AMOXICILLIN 95340561799 No Longer Active Carlton Hu MD Active ELMIRON 100 MG ORAL CAPSULE 2 tablets in the am and 1 tablet at hs PENTOSAN POLYSULFATE SODIUM 87399766556 No Longer Active Robert jade Hu MD Active MUCINEX D 60-600 MG ORAL TABLET EXTENDED RELEASE 12 HOUR 1 t ab po q am PSEUDOEPHEDRINE-GUAIFENESIN 56297886653 No Longer Act nael Carlton Hu MD Active MUCINEX DM MAXIMUM STRENGTH 60-1200 MG ORAL TABLET EXT ENDED RELEASE 12 HOUR 1 tab po q am DEXTROMETHORPHAN-GUAIFENESIN 15575919478 No Longer Active Carlton Hu MD Active TUSSIONEX PENNKINETIC ER 10-8 MG/5ML ORAL SUSPENSION E XTENDED RELEASE 5ml po q12hr PRN Cough HYDROCOD POLST-CHLORPHEN POLST 5 7881758809 No Longer Active Carlton Hu MD Active POTASSIUM CHLORIDE ER 20 MEQ ORAL TABLET EXTENDED RELE ASE Take 1 by mouth 4 times daily for 7 days POTASSIUM CHLORIDE 26407454361 No Longer Active Carlton Hu MD Active ZITHROMAX 250 MG ORAL TABLET 2 po today, then 1 po q days 2-5 20 14/09/04 AZITHROMYCIN 97811188883 No Longer Active Elise Garcia APRN Active TUSSIONEX PENNKINETIC ER 10-8 MG/5ML ORAL SUSPENSION E XTENDED RELEASE 5 ml twice a day as needed for cough HYDROCOD POLST-CHLORPH EN POLST 77444666007 No Longer Active Elise Garcia APRN Active MONTELUKAST SODIUM 10 MG ORAL TABLET 1 po daily for Allergy MONTELUKAST SODIUM 30963943035 Active Carlton Hu MD Ac tive TUSSIONEX PENNKINETIC ER 10-8 MG/5ML ORAL SUSPENSION E XTENDED RELEASE 5ml po q12hr PRN Cough HYDROCOD POLST-CHLORPHEN POLST 5 8307608056 No Longer Active Hugo Restrepo MD Active GABAPENTIN 100 MG ORAL CAPSULE 1 po BID for fibromyalgia GABAPENTIN 76775989241 Active ALFREDO Holly Active LYRICA 100 MG ORAL CAPSULE Take 1 tab po BID for fibromyalgia 20 11/08/21 PREGABALIN 28901375923 No Longer Active Elise Garcia APRN A ctive PREDNISONE 20 MG ORAL TABLET 2 tabs daily for 3 days, 1 tab daily for 3 days, 1/2 tab daily for 2 days PREDNISONE 07419016142 No Longer Active Jillina Frazell FARMWORKER Active TUSSIONEX PENNKINETIC ER 10-8 MG/5ML ORAL SUSPENSION E XTENDED RELEASE 5 mL PO q 12 hrs PRN cough HYDROCOD POLST-CHLORPHEN POLST 036844 67796 No Longer Active Jillina Frazell FARMWORKER Active FLUTICASONE PROPIONATE 50 MCG/ACT NASAL SUSPENSION 2 s prays each nostril daily until bottle is empty FLUTICASONE PROPIONATE 774157745 99 No Longer Active Jillina Frazell FARMWORKER Active ASMANEX 60 METERED DOSES 220 MCG/INH INHALATION AEROSO L POWDER BREATH ACTIVATED 1 puff bid with rinse after MOMETASONE FUROATE 1886848 4102 No Longer Active Jillina Frazell FARMWORKER Active ZITHROMAX Z-REYNA 250 MG ORAL TABLET 2 today, then 1 daily for 4 d ays AZITHROMYCIN 36518910405 No Longer Active Elise Arell FARMWORKER Active TUSSIONEX PENNKINETIC ER 10-8 MG/5ML ORAL SUSPENSION E XTENDED RELEASE 5ml po q12hr PRN Cough HYDROCOD POLST-CHLORPHEN POLST 5 2192897648 No Longer Active Elise Arell FARMWORKER Active PREDNISONE 20 MG ORAL TABLET 2 tabs daily for 3 days, 1 tab daily for 3 days, 1/2 tab daily for 2 days PREDNISONE 43424157191 No Longer Active Diya De Guzman APRN Active AMOXICILLIN 500 MG ORAL CAPSULE 2 po BID x 10 days 201 09/29/08 AMOXICILLIN 69904147305 No Longer Active Diya De Guzman FARMWORKER Act nael SINGULAIR 10 MG ORAL TABLET 1 po qday for allergies 20 14/01/12 MONTELUKAST SODIUM 42505699354 No Longer Active Carlton Hu MD Active LEVAQUIN 500 MG ORAL TABLET 1 tablet by mouth daily 13/09/24 LEVOFLOXACIN 88813127086 No Longer Active Carlton Hu MD Acti ve FLUTICASONE PROPIONATE 50 MCG/ACT NASAL SUSPENSION 2 s prays each nostril daily for 2 weeks, then 1 spray each nostril daily. FLUTICASONE PROPIONATE 21278782739 Active Carlton Hu MD Active ZITHROMAX 250 MG ORAL TABLET 2 po today, then 1 po q days 2-5 20 13/08/10 AZITHROMYCIN 78190353084 No Longer Active Elise Garcia APRN Active XANAX 0.5 MG ORAL TABLET one tablet by mouth daily prn anxiety 2015 ALPRAZOLAM 65111149569 Active ALFREDO Holly Active CEFDINIR 300 MG ORAL CAPSULE 1 po BID x 10 days CEFDINIR 64785565573 No Longer Active Carlton Hu MD Active ZOCOR 40 MG ORAL TABLET 1 tab by mouth daily SI MVASTATIN 80405295847 No Longer Active Carlton Hu MD Active CYCLOBENZAPRINE HCL 10 MG ORAL TABLET 1 tablet by mouth BID prn had pain CYCLOBENZAPRINE HCL 91557721264 No Longer Active Jayden Hu MD Active LEVOFLOXACIN 500 MG ORAL TABLET 1 tab PO daily x 10 days LEVOFLOXACIN 67013445896 No Longer Active Carlton Hu MD Acti ve PREDNISONE 20 MG ORAL TABLET 3 tab PO qd x 2d, 2 tab P O qd x 2d, 1 tab PO qd x 2d, 1/2 tab PO qd x 2d PREDNISONE 13404052151 No Lo nger Active Carlton Hu MD Active FLUTICASONE PROPIONATE 50 MCG/ACT NASAL SUSPENSION 1 t o 2 sprays each nostril daily FLUTICASONE PROPIONATE 09676777487 No Longer Ac tive Blaine HERNANDEZ Active CHERATUSSIN AC 100-10 MG/5ML ORAL SYRUP 1 tsp by mouth every 4 hours as needed for cough GUAIFENESIN-CODEINE 17834658584 No Longe r Active Blaine HERNANDEZ Active PROMETHAZINE-CODEINE 6.25-10 MG/5ML ORAL SYRUP 1 tsp b y mouth every 6 hours if needed for cough PROMETHAZINE-CODEINE 69001671401 No Longer Active Blaine HERNANDEZ Active CHERATUSSIN AC 100-10 MG/5ML ORAL SYRUP 1 tsp by mouth every 4 hours as needed for cough GUAIFENESIN-CODEINE 59874796654 No Longe r Active Blaine HERNANDEZ Active ZITHROMAX Z-REYNA 250 MG ORAL TABLET 2 today, then 1 daily for 4 d ays AZITHROMYCIN 99684096676 No Longer Active Columba Raida Act nael ZITHROMAX 250 MG ORAL TABLET 2 po today, then 1 po q days 2-5 20 14/03/21 AZITHROMYCIN 02280117993 No Longer Active Carlton Hu MD Active ZITHROMAX Z-REYNA 250 MG ORAL TABLET 2 today, then 1 daily for 4 d ays AZITHROMYCIN 72652371430 No Longer Active Columba Raida Act nael AUGMENTIN 875-125 MG ORAL TABLET 1 po BID x 10 days 13/01/20 AMOXICILLIN-POT CLAVULANATE 35309622948 No Longer Active Diya De Guzman APRN Active ZITHROMAX 250 MG ORAL TABLET 2 po today, then 1 po q days 2-5 20 12/08/14 AZITHROMYCIN 43640643753 No Longer Active Carlton Hu MD Active TRAMADOL HCL 50 MG ORAL TABLET 1 po tid with ES Tylenol TRAMADOL HCL 99138721559 Active Carlton Hu MD Active PREMARIN 0.625 MG ORAL TABLET TAKE 1 TAB BY MOUTH DAILY ESTROGENS CONJUGATED 48087075999 No Longer Active Ridge Bess DO A ctive CYMBALTA 30 MG ORAL CAPSULE DELAYED RELEASE PARTICLES 1 cap by mouth daily DULOXETINE HCL 87888353929 No Longer Active Ridge Ya ee DO Active AMOXICILLIN 500 MG ORAL CAPSULE 1 tab by mouth 3 times daily x 10 days AMOXICILLIN 55243762729 No Longer Active Carlton bustamante MD Active AMOXICILLIN 500 MG ORAL CAPSULE 1 tab by mouth 3 times daily x 10 days AMOXICILLIN 79074142777 No Longer Active Carlton bustamante MD Active PROMETHAZINE-CODEINE 6.25-10 MG/5ML ORAL SYRUP 1 tsp b y mouth every 8 hours prn cough PROMETHAZINE-CODEINE 24530584741 No Longer Acti ve Carlton Hu MD Active MEDROL 4 MG ORAL TABLET THERAPY PACK 6 pills x 1 day, then 5 pills x 1 day then 4 pills x 1 day, then 3 pills x 1 day, then 2 pills x 1 day, then 1 pill x 1 day, then stop METHYLPREDNISOLONE 13200994287 No Long er Active Perez Mora MD Active AZITHROMYCIN 250 MG ORAL TABLET 2 po qd x 1 day, then 1 po q d x 4 days AZITHROMYCIN 06782001217 No Longer Active Perez Ambriz MD Active SYMBICORT 160-4.5 MCG/ACT INHALATION AEROSOL 2 puffs bid wit h rinse after BUDESONIDE-FORMOTEROL FUMARATE 49207832656 N o Longer Active Perez Mora MD Active LYRICA 75 MG ORAL CAPSULE TAKE 1 CAPSULE BY MOUTH TWICE DAILY PREGABALIN 13532571248 No Longer Active Carlton Hu MD Acti ve TOPAMAX 25 MG ORAL TABLET 1 qHS x 1 week, then 1 BID x 1 week, then 1 qAM and 2 qHS x 1 week, then 2 BID (migraine prevention) T OPIRAMATE 10135797320 No Longer Active Jerica FUENTES Active TOPAMAX 50 MG ORAL TABLET take 1 tab po BID for migraines. 07/02 TOPIRAMATE 48244532865 No Longer Active Jerica FUENTES Active TRIAMCINOLONE ACETONIDE 0.1 % EXTERNAL CREAM apply three roger es daily prn rash TRIAMCINOLONE ACETONIDE 17062922889 No Longer Active Carlton Hu MD Active PAXIL 40 MG ORAL TABLET take 1 tab po qday for depression 0 PAROXETINE HCL 22571865544 Active Carlton Hu MD Active CHERATUSSIN AC 100-10 MG/5ML ORAL SYRUP 5ml po q6hr PRN Cough 20 13/04/14 GUAIFENESIN-CODEINE 59873700812 No Longer Active Carlton Hu MD Active MEDROL 4 MG ORAL TABLET THERAPY PACK 6 tabs on day 1, 5 tabs on day 2, 4 tabs on day 3, 3 tabs on day 4, 2 tabs on day 5, 1 tab on day 6 2013 METHYLPREDNISOLONE 68452277885 No Longer Active Perez Mora MD Active AZITHROMYCIN 250 MG ORAL TABLET 2 po qd x 1 day, then 1 po q d x 4 days AZITHROMYCIN 52640251654 No Longer Active Perez Ambriz MD Active PROPRANOLOL HCL 60 MG ORAL TABLET 1 PO Q D PROPRANOLOL HCL 97347144001 No Longer Active Perez Mora MD Activ e CHERATUSSIN AC 100-10 MG/5ML ORAL SYRUP take one tsp po Q 6h ours prn cough GUAIFENESIN-CODEINE 86301771149 No Longer Active Zia Mora MD Active AUGMENTIN 875-125 MG ORAL TABLET 1 tab by mouth twice daily with food AMOXICILLIN-POT CLAVULANATE 17901571097 No Longer Act nael Perez Mora MD Active CHERATUSSIN AC 100-10 MG/5ML ORAL SYRUP 1 tsp by mouth every 4 hours as needed for cough GUAIFENESIN-CODEINE 03828931437 No Longe r Active Hugo Restrepo MD Active ACETAMINOPHEN-CODEINE #3 300-30 MG ORAL TABLET 1 PO Q 4-6 HRS CA N PAIN ACETAMINOPHEN-CODEINE 94935254343 No Longer Active Hugo Restrepo MD Active LEVAQUIN 500 MG ORAL TABLET take one po QD LEVO FLOXACIN 07740565648 No Longer Active Griffin HERNANDEZ Active PREDNISONE 20 MG ORAL TABLET Take 3 tabs daily for 3 d ays, 2 tabs daily for 3 days, 1 tab daily for 3 days, 1/2 tab daily for 3 days 11/07 PREDNISONE 06586470236 No Longer Active Carlton Hu MD Acti ve AVELOX 400 MG ORAL TABLET 1 tab by mouth daily MOXIFLOXACIN HCL 11452143889 No Longer Active Carlton Hu MD Active CHERATUSSIN AC 100-10 MG/5ML ORAL SYRUP 1 tsp by mouth every 4 hours as needed for cough GUAIFENESIN-CODEINE 70991574026 No Longe r Active Hugo Restrepo MD Active AVELOX 400 MG ORAL TABLET 1 tab by mouth daily MOXIFLOXACIN HCL 80591600198 No Longer Active Marcy De La Rosa MD PhD Active TERBINAFINE HCL 250 MG ORAL TABLET 1 qDay T ERBINAFINE HCL 54743813145 No Longer Active Marcy De La Rosa MD PhD Active CHERATUSSIN AC 100-10 MG/5ML ORAL SYRUP 1 tsp by mouth every 4 hours as needed for cough GUAIFENESIN-CODEINE 83162466138 No Longe r Active Marcy De La Rosa MD PhD Active AVELOX 400 MG ORAL TABLET 1 tab by mouth daily MOXIFLOXACIN HCL 95335509891 No Longer Active Marcy De La Rosa MD PhD Active HYDROCODONE-ACETAMINOPHEN 5-325 MG ORAL TABLET 1 po q 6hr PRN co ugh HYDROCODONE-ACETAMINOPHEN 05394254238 No Longer Active Marcy De La Rosa MD PhD Active PREDNISONE 20 MG ORAL TABLET 2 tabs daily for 3 days, 1 tab daily for 3 days, 1/2 tab daily for 2 days PREDNISONE 23619621500 No Longer Active Carlton Hu MD Active CEFDINIR 300 MG ORAL CAPSULE by mouth twice a day 2011 CEFDINIR 43907343719 No Longer Active Carlton Hu MD Acti ve HYDROCHLOROTHIAZIDE 25 MG ORAL TABLET 1 TAB PO DAILY HYDROCHLOROTHIAZIDE 11841566608 Active Carlton Hu MD A ctive ACETAMINOPHEN-CODEINE #3 300-30 MG ORAL TABLET 1 tablet po q 4-6 hrs prn pain ACETAMINOPHEN-CODEINE 93339456640 No Longer Active Ridge Bess DO Active ZITHROMAX 250 MG ORAL TABLET 2 po today, then 1 po q days 2-5 20 03/07/07 AZITHROMYCIN 74125704854 No Longer Active Carlton Hu MD Active CHERATUSSIN AC 100-10 MG/5ML ORAL SYRUP take 1 tsp po q4-6 h ours prn cough GUAIFENESIN-CODEINE 29043012291 No Longer Active Jayden Hu MD Active ACETAMINOPHEN-CODEINE #3 300-30 MG ORAL TABLET 1 PO Q 4-6 HR PRN PAIN ACETAMINOPHEN-CODEINE 43663091675 No Longer Active Da raimundo Hu MD Active LORTAB 7.5-500 MG/15ML ORAL ELIXIR 7.5 ml po q 4 hour prn cough HYDROCODONE-ACETAMINOPHEN 33375797972 No Longer Active Carlton Hu MD Active PREDNISONE 20 MG ORAL TABLET 1 po bid 3 days, then 1 po q day 3 days PREDNISONE 12776687638 No Longer Active Carlton Hu MD Active CEFDINIR 300 MG ORAL CAPSULE by mouth twice a day 2011 CEFDINIR 03251252606 No Longer Active Carlton Hu MD Acti ve CEFDINIR 300 MG ORAL CAPSULE by mouth twice a day 2010 CEFDINIR 51796560069 No Longer Active Carlton Hu MD Acti ve CEFDINIR 300 MG ORAL CAPSULE by mouth twice a day 2010 CEFDINIR 72356488193 No Longer Active Carlton Hu MD Acti ve TESSALON PERLES 100 MG ORAL CAPSULE 1 tablet by mouth 3 times daily as needed for cough BENZONATATE 08646124539 No Longer Active Carlton Hu MD Active CEFDINIR 300 MG ORAL CAPSULE by mouth twice a day 2010 CEFDINIR 68475143075 No Longer Active Carlton Hu MD Acti ve ZITHROMAX Z-REYNA 250 MG ORAL TABLET 2 today, then 1 daily for 4 d ays AZITHROMYCIN 67628514452 No Longer Active Hugo Restrepo MD Active TESSALON PERLES 100 MG ORAL CAPSULE 1 tablet by mouth 3 times daily as needed for cough TESSALON PERLES 100 MG ORAL CAPSULE 08273 7 BENZONATATE Inactive PREDNISONE 20 MG ORAL TABLET 1 po bid 3 days, then 1 po q day 3 days PREDNISONE 20 MG ORAL TABLET 198196 PREDNISONE [place] ctive LORTAB 7.5-500 MG/15ML ORAL [...] cough CHERATUSSIN AC 100-10 MG/5ML ORAL SYRUP 981804 GUAIFENESIN-CODEINE Inactive ACETAMINOPHEN-CODEINE #3 300-30 MG ORAL TABLET 1 tablet po q 4-6 hrs prn pain ACETAMINOPHEN-CODEINE #3 300-30 MG ORAL TABLET ACETAMINOPHEN-CODEINE Inactive HYDROCODONE-ACETAMINOPHEN 5-325 MG ORAL TABLET 1 po q 6hr PRN co ugh HYDROCODONE-ACETAMINOPHEN 5-325 MG ORAL TABLET 889153 HYDROCODONE-ACETAMINOPHEN Inactive AVELOX 400 MG ORAL TABLET 1 tab by mouth daily AVELOX 400 MG ORAL TABLET 071350 MOXIFLOXACIN HCL Inactive CHERATUSSIN AC 100-10 MG/5ML ORAL SYRUP 1 tsp by mouth every 4 hours as needed for cough CHERATUSSIN AC 100-10 MG/5ML ORAL SYRUP 9 46988 GUAIFENESIN-CODEINE Inactive TERBINAFINE HCL 250 MG ORAL TABLET 1 qDay 07/08 TERBINAFINE HCL 250 MG ORAL TABLET 592363 TERBINAFINE HCL Inactive CHERATUSSIN AC 100-10 MG/5ML ORAL SYRUP 1 tsp by mouth every 4 hours as needed for cough CHERATUSSIN AC 100-10 MG/5ML ORAL SYRUP 9 09186 GUAIFENESIN-CODEINE Inactive ACETAMINOPHEN-CODEINE #3 300-30 MG ORAL TABLET 1 PO Q 4-6 HRS CA N PAIN ACETAMINOPHEN-CODEINE #3 300-30 MG ORAL TABLET ACETAMINOPHEN-CODEINE Inactive CHERATUSSIN AC 100-10 MG/5ML ORAL SYRUP 1 tsp by mouth every 4 hours as needed for cough CHERATUSSIN AC 100-10 MG/5ML ORAL SYRUP 9 54419 GUAIFENESIN-CODEINE Inactive AUGMENTIN 875-125 MG ORAL TABLET 1 tab by mouth twice daily with food AUGMENTIN 875-125 MG ORAL TABLET AMOXICIL MADELINE-POT CLAVULANATE Inactive CHERATUSSIN AC 100-10 MG/5ML ORAL SYRUP take one tsp po Q 6h ours prn cough CHERATUSSIN AC 100-10 MG/5ML ORAL SYRUP 585297 GUAIFENESIN-CODEINE Inactive PROPRANOLOL HCL 60 MG ORAL TABLET 1 PO Q D PROPRANOLOL HCL 60 MG ORAL TABLET 494797 PROPRANOLOL HCL Inactive TOPAMAX 50 MG ORAL TABLET take 1 tab po BID for migraines. 07/02 TOPAMAX 50 MG ORAL TABLET 011920 TOPIRAMATE Inacti ve TOPAMAX 25 MG ORAL TABLET 1 qHS x 1 week, then 1 BID x 1 week, then 1 qAM and 2 qHS x 1 week, then 2 BID (migraine prevention) TOPAMAX 25 MG ORAL TABLET 802000 TOPIRAMATE Inactive LYRICA 75 MG ORAL CAPSULE TAKE 1 CAPSULE BY MOUTH TWICE DAILY LYRICA 75 MG ORAL CAPSULE PREGABALIN Inactive SYMBICORT 160-4.5 MCG/ACT INHALATION AEROSOL 2 puffs bid wit h rinse after SYMBICORT 160-4.5 MCG/ACT INHALATION AEROSOL BUDESONIDE- FORMOTEROL FUMARATE Inactive PROMETHAZINE-CODEINE 6.25-10 MG/5ML ORAL SYRUP 1 tsp b y mouth every 8 hours prn cough PROMETHAZINE-CODEINE 6.25-10 MG/ 5ML ORAL SYRUP 131966 PROMETHAZINE-CODEINE Inactive CYMBALTA 30 MG ORAL CAPSULE DELAYED RELEASE PARTICLES 1 cap by mouth daily CYMBALTA 30 MG ORAL CAPSULE DELAYED RELE ASE PARTICLES 145859 DULOXETINE HCL Inactive PREMARIN 0.625 MG ORAL TABLET TAKE 1 TAB BY MOUTH DAILY PREMARIN 0.625 MG ORAL TABLET ESTROGENS CONJUGATED Inactive CHERATUSSIN AC 100-10 MG/5ML ORAL SYRUP 1 tsp by mouth every 4 hours as needed for cough CHERATUSSIN AC 100-10 MG/5ML ORAL SYRUP 9 33903 GUAIFENESIN-CODEINE Inactive PROMETHAZINE-CODEINE 6.25-10 MG/5ML ORAL SYRUP 1 tsp b y mouth every 6 hours if needed for cough PROMETHAZINE-CODEINE 6.25-10 MG/5ML ORAL SYRUP 869455 PROMETHAZINE-CODEINE Inactive CHERATUSSIN AC 100-10 MG/5ML ORAL SYRUP 1 tsp by mouth every 4 hours as needed for cough CHERATUSSIN AC 100-10 MG/5ML ORAL SYRUP 9 08861 GUAIFENESIN-CODEINE Inactive FLUTICASONE PROPIONATE 50 MCG/ACT NASAL SUSPENSION 1 t o 2 sprays each nostril daily FLUTICASONE PROPIONATE 50 MCG/AC T NASAL SUSPENSION 9299750 FLUTICASONE PROPIONATE Inactive PREDNISONE 20 MG ORAL TABLET 3 tab PO qd x 2d, 2 tab P O qd x 2d, 1 tab PO qd x 2d, 1/2 tab PO qd x 2d PREDNISONE 20 MG ORAL TAB LET 523031 PREDNISONE Inactive LEVOFLOXACIN 500 MG ORAL TABLET 1 tab PO daily x 10 days LEVOFLOXACIN 500 MG ORAL TABLET 665188 LEVOFLOXACIN Inactive CYCLOBENZAPRINE HCL 10 MG ORAL TABLET 1 tablet by mouth BID prn had pain CYCLOBENZAPRINE HCL 10 MG ORAL TABLET 460758 CYCLOBENZAPRINE HCL Inactive ZOCOR 40 MG ORAL TABLET 1 tab by mouth daily 4 ZOCOR 40 MG ORAL TABLET 985768 SIMVASTATIN Inactive TUSSIONEX PENNKINETIC ER 10-8 MG/5ML [...] FLUTICASONE PROPIO EFE 50 MCG/ACT NASAL SUSPENSION 8675176 FLUTICASONE PROPIONATE Inactive TUSSIONEX PENNKINETIC ER 10-8 [...] three days PREDNISONE 20 MG ORAL TABLET 841678 PREDNIS ONE Inactive PROAIR HFA 108 (90 BASE) MCG/ACT INHALATION AEROSOL SO LUTION 2 puffs four times a day as needed PROAIR HFA 108 (90 B ASE) MCG/ACT INHALATION AEROSOL SOLUTION ALBUTEROL SULFATE Inactive PREDNISONE 20 MG ORAL TABLET two tabs by mouth today, then one tab by mouth days two and three and four PREDNISONE 20 MG ORAL TAB LET 157978 PREDNISONE Inactive TUSSIONEX PENNKINETIC ER 10-8 MG/5ML [...] bid 04/20 TOPAMAX 100 MG ORAL TABLET 458061 TOPIRAMATE Inactive CYMBALTA 30 MG ORAL CAPSULE DELAYED RELEASE PARTICLES 1 cap by mouth daily for depression CYMBALTA 30 MG ORAL CAPSULE DELAYED RELEASE PARTICLES 774747 DULOXETINE HCL Inactive ZITHROMAX Z-REYNA 250 MG ORAL TABLET 2 today, then 1 daily for 4 d ays ZITHROMAX Z-REYNA 250 MG ORAL TABLET 001248 AZITHROMYCIN Inactive CEFDINIR 300 MG ORAL CAPSULE [...] 20 03/07/07 ZITHROMAX 250 MG ORAL TABLET 141487 AZITHROMYCIN [place] ctive CEFDINIR 300 MG ORAL CAPSULE by mouth twice a day 2011 CEFDINIR 300 MG ORAL CAPSULE 20020704 CEFDINIR Inactive PREDNISONE 20 MG ORAL TABLET 2 tabs daily for 3 days, 1 tab daily for 3 days, 1/2 tab daily for 2 days PREDNISONE 20 MG ORAL T ABLET 699579 PREDNISONE Inactive AVELOX 400 MG ORAL TABLET 1 tab by mouth daily AVELOX 400 MG ORAL TABLET 814872 MOXIFLOXACIN HCL Inactive AVELOX 400 MG ORAL TABLET 1 tab by mouth daily AVELOX 400 MG ORAL TABLET 739733 MOXIFLOXACIN HCL Inactive PREDNISONE 20 MG ORAL TABLET Take 3 tabs daily for 3 d ays, 2 tabs daily for 3 days, 1 tab daily for 3 days, 1/2 tab daily for 3 days 11/07 PREDNISONE 20 MG ORAL TABLET 422894 PREDNISONE Inactive LEVAQUIN 500 MG ORAL TABLET take one po QD LEVAQUIN 500 MG ORAL TABLET 101965 LEVOFLOXACIN Inactive AZITHROMYCIN 250 MG ORAL TABLET 2 po qd x 1 day, then 1 po q d x 4 days AZITHROMYCIN 250 MG ORAL TABLET 923201 AZITHROMY GIOVANNI Inactive MEDROL 4 MG ORAL TABLET THERAPY PACK 6 tabs on day 1, 5 tabs on day 2, 4 tabs on day 3, 3 tabs on day 4, 2 tabs on day 5, 1 tab on day 6 2013 MEDROL 4 MG ORAL TABLET THERAPY PACK 311131 METHYLPREDNISOLONE [place] ctive CHERATUSSIN AC 100-10 MG/5ML ORAL SYRUP 5ml po q6hr PRN Cough 20 13/04/14 CHERATUSSIN AC 100-10 MG/5ML ORAL SYRUP 100902 GUAIFENE SIN-CODEINE Inactive TRIAMCINOLONE ACETONIDE 0.1 % EXTERNAL CREAM apply three roger es daily prn rash TRIAMCINOLONE ACETONIDE 0.1 % EXTERNAL CREAM 101 4314 TRIAMCINOLONE ACETONIDE Inactive AZITHROMYCIN 250 MG ORAL TABLET 2 po qd x 1 day, then 1 po q d x 4 days AZITHROMYCIN 250 MG ORAL TABLET 748294 AZITHROMY GIOVANNI Inactive MEDROL 4 MG ORAL TABLET THERAPY PACK 6 pills x 1 day, then 5 pills x 1 day then 4 pills x 1 day, then 3 pills x 1 day, then 2 pills x 1 day, then 1 pill x 1 day, then stop MEDROL 4 MG ORAL TABLET THERAPY PACK 242043 METHYLPREDNISOLONE Inactive AMOXICILLIN 500 MG ORAL CAPSULE 1 tab by mouth 3 times daily x 10 days AMOXICILLIN 500 MG ORAL CAPSULE 687982 AMOXICILL IN Inactive AMOXICILLIN 500 MG ORAL CAPSULE 1 tab by mouth 3 times daily x 10 days AMOXICILLIN 500 MG ORAL CAPSULE [id number] AMOXICILL IN Inactive ZITHROMAX 250 MG ORAL TABLET 2 po today, then 1 po q days 2-5 20 12/08/14 ZITHROMAX 250 MG ORAL TABLET 660021 AZITHROMYCIN [facility] AUGMENTIN 875-125 MG ORAL TABLET 1 po BID x 10 days 20 13/01/20 AUGMENTIN 875-125 MG ORAL TABLET AMOXICILLIN-POT CLAVULANATE Inactive ZITHROMAX Z-REYNA 250 MG ORAL TABLET 2 today, then 1 daily for 4 d ays ZITHROMAX Z-REYNA 250 MG ORAL TABLET 790554 AZITHROMYCIN Inactive ZITHROMAX 250 MG ORAL TABLET 2 po today, then 1 po q days 2-5 20 14/03/21 ZITHROMAX 250 MG ORAL TABLET 544035 AZITHROMYCIN Greer ctive ZITHROMAX Z-REYNA 250 MG ORAL TABLET 2 today, then 1 daily for 4 d ays ZITHROMAX Z-REYNA 250 MG ORAL TABLET 312895 AZITHROMYCIN Inactive CEFDINIR 300 MG ORAL CAPSULE 1 po BID x 10 days 06/21 CEFDINIR 300 MG ORAL CAPSULE 20020704 CEFDINIR Inactive ZITHROMAX 250 MG ORAL TABLET 2 po today, then 1 po q days 2-5 20 13/08/10 ZITHROMAX 250 MG ORAL TABLET 699900 AZITHROMYCIN Greer [facility] LEVAQUIN 500 MG ORAL TABLET 1 tablet by mouth daily 13/09/24 LEVAQUIN 500 MG ORAL TABLET 19971102 LEVOFLOXACIN Inactive SINGULAIR 10 MG ORAL TABLET 1 po qday for allergies 14/01/12 SINGULAIR 10 MG ORAL TABLET 20010504 MONTELUKAST SODIUM Inactive AMOXICILLIN 500 MG ORAL CAPSULE 2 po BID x 10 days 201 09/29/08 AMOXICILLIN 500 MG ORAL CAPSULE 486060 AMOXICILLIN Inactive PREDNISONE 20 MG ORAL TABLET 2 tabs daily for 3 days, 1 tab daily for 3 days, 1/2 tab daily for 2 days PREDNISONE 20 MG ORAL T ABLET 235858 PREDNISONE Inactive ZITHROMAX Z-REYNA 250 MG ORAL TABLET 2 today, then 1 daily for 4 d ays ZITHROMAX Z-REYNA 250 MG ORAL TABLET 179513 AZITHROMYCIN Inactive PREDNISONE 20 MG ORAL TABLET 2 tabs daily for 3 days, 1 tab daily for 3 days, 1/2 tab daily for 2 days PREDNISONE 20 MG ORAL T ABLET 530121 PREDNISONE Inactive ZITHROMAX 250 MG ORAL TABLET 2 po today, then 1 po q days 2-5 20 14/09/04 ZITHROMAX 250 MG ORAL TABLET 166257 AZITHROMYCIN [facility]er [facility] AMOXICILLIN 500 MG ORAL CAPSULE 1 cap by mouth three times a day AMOXICILLIN 500 MG ORAL CAPSULE 017265 AMOXICILLIN Inactive TERBINAFINE HCL 250 MG ORAL TABLET 1 qDay for nail fungus 7 TERBINAFINE HCL 250 MG ORAL TABLET 005738 TERBINAFINE HCL Inact nael AUGMENTIN 875-125 MG ORAL TABLET 1 po BID x 10 days 20 16/03/22 AUGMENTIN 875-125 MG ORAL TABLET AMOXICILLIN-POT CLAVULANATE Inactive PREDNISONE 20 MG ORAL TABLET 2 po qd x 5 days PREDNISONE 20 MG ORAL TABLET 097241 PREDNISONE Inactive AZITHROMYCIN 250 MG ORAL TABLET 2 po qd x 1 day, then 1 po q d x 4 days AZITHROMYCIN 250 MG ORAL TABLET 674429 AZITHROMY GIOVANNI Inactive PREDNISONE 50 MG ORAL TABLET Take 50 mg dialy for 6 day s 7 PREDNISONE 50 MG ORAL TABLET 023951 PREDNISONE Inactive AUGMENTIN 875-125 MG ORAL TABLET 1 po BID x 10 days 18/04/16 AUGMENTIN 875-125 MG ORAL TABLET AMOXICILLIN-POT CLAVULANATE Inactive DOXYCYCLINE HYCLATE 100 MG ORAL CAPSULE 1 cap by mouth twice latasha ly DOXYCYCLINE HYCLATE 100 MG ORAL CAPSULE 6703354 DOXYCYCL INE HYCLATE Inactive PREDNISONE 20 MG ORAL TABLET Take 2 tabs day 1 and 2 and 1 t ab days 3 and 4 PREDNISONE 20 MG ORAL TABLET 327013 PREDNISONE Inactive AMOXICILLIN 500 MG ORAL CAPSULE 1 cap by mouth twice daily 10/21 AMOXICILLIN 500 MG ORAL CAPSULE 090985 AMOXICILLIN Inactive TRIAMCINOLONE ACETONIDE 0.1 % EXTERNAL OINTMENT Apply to affected areas TID PRN Rash/Itching for up 2 weeks TRIAMCINOLON E ACETONIDE 0.1 % EXTERNAL OINTMENT 4832802 TRIAMCINOLONE ACETONIDE Inactive Vital Signs Date Name Value Unit Range Description blood pressure, diastolic, repeated by physician 83 [...] - Chem istry sodium, serum 139 mmol/L [phone]/10/12 potassium, serum 3.8 mmol/L 3.5-5.2 chloride, serum [...] negative Encounters Code Encounter Date Provider Facility CPT-13655 Level 3 Est. Patient 16:08:07 CDT David lion [facility] CPT-56510 Level 3 Est. Patient 16:53:54 CDT May haas MD [facility]-98643 [id number] Vst-Est Level IV 08:41:[address] Carlton Hu MD [facility] CPT-52918 Level 3 Est. Patient 09:46:49 RN CORRECTIONS David lion [facility] CPT-03112 [id number] Vst-Est Level III 11:12:16 CDT Yanet Bess DO [facility] CPT-90210 Level 3 Est. Patient 11:34:49 RN CORRECTIONS Perez Mora MD [facility] CPT-60018 Level 4 Est. Patient 09:51:32 RN CORRECTIONS Carlton rich MD [facility] CPT-72606 Level 3 Est. Patient 10:26:00 RN CORRECTIONS Elise stephenson [facility] CPT-94021 Level 3 Est. Patient 13:35:41 RN CORRECTIONS Carlton rich MD [facility] CPT-65351 Level 3 Est. Patient 10:03:52 RN CORRECTIONS Carlton rich MD [facility] CPT-42648 Level 3 Est. Patient 12:17:50 CDT Hugo Restrepo MD [facility] CPT-49288 Level 3 Est. Patient 13:42:38 CDT Elise Are ll [facility] CPT-93055 Level 3 Est. Patient 13:23:51 CDT Diya cobian [facility] CPT-13174 Level 3 Est. Patient 14:22:19 RN CORRECTIONS Diya Mariana cobian [facility] CPT-01249 Level 3 Est. Patient 10:11:46 CDT Carlton rich MD [facility] CPT-59084 Level 3 Est. Patient 17:29:43 CDT Elise Are ll [facility] CPT-95904 Level 3 Est. Patient 11:58:06 CDT Elise Are [facility] CPT-76397 Level 4 Est. Patient 14:36:51 CDT Carlton rich MD [facility] CPT-31051 Level 3 Est. Patient 18:16:00 RN CORRECTIONS Blaine HERNANDEZ [facility] CPT-66518 Level 3 Est. Patient 09:45:49 RN CORRECTIONS Carlton rich MD [facility] CPT-63204 Level 3 Est. Patient 13:19:20 CDT Carlton rich MD [facility] CPT-34221 Level 3 Est. Patient 13:06:43 CDT Ridge tam DO [facility] CPT-42338 Level 3 Est. Patient 10:03:07 CDT Perez Mora MD [facility] CPT-39918 Level 3 Est. Patient 19:50:35 RN CORRECTIONS Carlton rich MD [facility] CPT-40980 Level 4 Est. Patient 18:05:01 RN CORRECTIONS Carlton rich MD [facility] CPT-60200 Level 3 Est. Patient 10:45:55 RN CORRECTIONS Hugo Restrepo MD [facility] CPT-13198 Level 3 Est. Patient 14:12:49 CDT Griffin HERNANDEZ [facility] CPT-82088 Level 3 Est. Patient 17:37:24 CDT Carlton rich MD [facility] CPT-76792 Level 3 Est. Patient 16:51:54 CDT Carlton rich MD [facility]-63416 Level 3 Est. Patient 12:18:11 CDT Hugo Restrepo MD [facility]-39087 Level 3 Est. Patient 11:30:25 CDT Marcy crisostomo MD PhD [facility]-92495 Level 3 Est. Patient 12:00:47 RN CORRECTIONS Carlton rich MD [facility] CPT-57138 Level 3 Est. Patient 16:31:06 RN CORRECTIONS Carlton rich MD [facility] CPT-64335 Level 3 Est. Patient 16:23:24 RN CORRECTIONS Ridge tam DO [facility] CPT-13764 Level 3 Est. Patient 12:34:12 CDT Carlton rich MD [facility] CPT-25544 Level 2 Est. Patient 15:43:33 CDT Robi armstrong MD [facility] CPT-59931 Level 4 Est. Patient 14:04:44 CDT Carlton rich MD [facility] CPT-54075 Level 3 Est. Patient 05:47:59 CDT Ridge tam [facility]-65472 Level 3 Est. Patient 13:12:53 RN CORRECTIONS Carlton rich MD [facility] CPT-73584 Level 3 Est. Patient 14:26:53 CDT Huog Restrepo MD [facility] Procedures Code Procedure Name Date Entry Date Standard Desc ription CPT-000 Give Appropriate Flu Vaccine 14:14:31 CDT 2 CPT-J1040 Depo Medrol 80 mg (Methyl Prednisolone A cetate) 10:42:44 CDT CPT-J1100 Decadron 8mg (Dexamethasone) 10:42:44 CDT 2 CPT-J0696 Rocephin 1gm Inj Solr 14:32:13 CDT CPT-J1020 Depo Medrol 60 mg (Methyl Prednisolone A cetate) 14:32:13 CDT CPT-J1100 Decadron 6mg (Dexamethasone) 14:32:13 CDT 2 CPT-34564 Hip bilat min 2V w AP pelvis 13:16:20 CDT 2 CPT-45255 Pelvis only 13:07:33 CDT CPT-20111 Spec Collection and Handling Fee 11:25:12 C DT CPT-60814 Fluzone Quadrivalent Intramuscular Suspe nsion 0.5 ML 14:31:55 CDT CPT-49562 Abx/Therapy Injection 13:28:47 RN CORRECTIONS CPT-J2930 Solu Medrol 125 mg (Methyl Prednisolone Sodium Succinate) 12:00:47 RN CORRECTIONS CPT-71385 Venipuncture Draw Fee 11:33:31 CDT CPT-80246 EKG Trac and Interp 11:21:09 CDT CPT-48573 Chest 2V Frontal and Lat 11:21:09 CDT 12/15 CPT-34790 Venipuncture Draw Fee 08:02:34 CDT CPT-79101 Chest 2V Frontal and Lat 05:47:59 CDT 06/05
--- OUTSIDE RECORDS SUMMARY | 2019-10-08 08:55 | XMS REPORT | Clinical Summary ---
Author Author Caitlin, Juliana Martinez Organization [facility] Address Unknown Phone Unavailable Allergies, [...] URI 465.9 Inactive Ridge Bess DO Ac [place] upper respiratory infections of unspecified site Body [...] Generic Name NDC Status Provider Patient Instruction TRIAMCINOLONE ACETONIDE 0.1 % EXTERNAL OINTMENT Apply to affected areas TID PRN Rash/Itching for up 2 weeks TRIAMCINOLONE ACETON KAYLA [id number] Active David Marianne PEN TENDER Active AMOXICILLIN 500 MG ORAL CAPSULE 1 cap by mouth twice daily 10/21 AMOXICILLIN 50853134282 No Longer Active David Marianne PEN TENDER Active ELMIRON 100 MG ORAL CAPSULE 2 capsules in the morning and 1 capsule at night PENTOSAN POLYSULFATE SODIUM 98895883921 Active 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 H 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 PLANT CLERK 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 CYMBALTA 30 MG ORAL CAPSULE DELAYED RELEASE PARTICLES 1 cap by mouth daily for depression DULOXETINE HCL 41438596040 No Longer Active Carlton Hu MD Active CYMBALTA 60 MG ORAL CAPSULE DELAYED RELEASE PARTICLES 1 cap by mouth daily for mood and pain DULOXETINE HCL 38176433604 Active Carlton Hu MD Active TUSSIONEX PENNKINETIC ER 10-8 MG/5ML ORAL SUSPENSION E XTENDED RELEASE 5ml po q12hr PRN Cough HYDROCOD POLST-CHLORPHEN POLST 27724546786 Active David Marianne PEN TENDER Active PREDNISONE 20 MG ORAL TABLET Take 2 tabs day 1 and 2 and 1 t ab days 3 and 4 PREDNISONE 57274853637 No Longer Active David Marianne PEN TENDER Active DOXYCYCLINE HYCLATE 100 MG ORAL CAPSULE 1 cap by mouth twice latasha ly DOXYCYCLINE HYCLATE 82729220686 No Longer Active David Marianne PEN TENDER Active TOPAMAX 100 MG ORAL TABLET Take 1 tablet po bid TOPIRAMATE 21483301316 No Longer Active David Marianne PEN TENDER Active TUSSIONEX PENNKINETIC ER 10-8 MG/5ML ORAL SUSPENSION E XTENDED RELEASE 5ml po q12hr PRN Cough HYDROCOD POLST-CHLORPHEN POLST 5 9269270485 No Longer Active David Marianne PEN TENDER Active AUGMENTIN 875-125 MG ORAL TABLET 1 po BID x 10 days 18/04/16 AMOXICILLIN-POT CLAVULANATE 05774978039 No Longer Active David Lopes APRN Active PREDNISONE 50 MG ORAL TABLET Take 50 mg dialy for 6 day s 7 PREDNISONE 95107234381 No Longer Active David Marianne PEN TENDER Active TUSSIONEX PENNKINETIC ER 10-8 MG/5ML ORAL SUSPENSION E XTENDED RELEASE 5ml po q12hr PRN Cough HYDROCOD POLST-CHLORPHEN POLST 5 5420320544 No Longer Active Cherelle Torres RN Active PREDNISONE 20 MG ORAL TABLET two tabs by mouth today, then one tab by mouth days two and three and four PREDNISONE 34391620225 No Lo nger Active Cherelle Torres RN Active AZITHROMYCIN 250 MG ORAL TABLET 2 po qd x 1 day, then 1 po q d x 4 days AZITHROMYCIN 06017259698 No Longer Active Ridge Bess DO Active PREDNISONE 20 MG ORAL TABLET 2 po qd x 5 days P REDNISONE 60187967330 No Longer Active Perez Mora MD Active PROAIR HFA 108 (90 BASE) MCG/ACT INHALATION AEROSOL SO LUTION 2 puffs four times a day as needed ALBUTEROL SULFATE 21392037592 No Long er Active Becky FUENTES Active ASPIRIN 81 MG ORAL TABLET 1 po qd ASPIRIN 81783196543 Active Carlton Hu MD Active PREDNISONE 20 MG ORAL TABLET 1 tab twice daily for 3 d ay, then one daily for three days PREDNISONE 25070480149 No Longer Active Carlton Hu MD Active AUGMENTIN 875-125 MG ORAL TABLET 1 po BID x 10 days 20 16/03/22 AMOXICILLIN-POT CLAVULANATE 72370292321 No Longer Active Elise Garcia APRN Active TERBINAFINE HCL 250 MG ORAL TABLET 1 qDay for nail fungus 7 TERBINAFINE HCL 62232766158 No Longer Active Carlton Hu MD A ctive AMOXICILLIN 500 MG ORAL CAPSULE 1 cap by mouth three times a day AMOXICILLIN 50884633893 No Longer Active Carlton Hu MD Active ELMIRON 100 MG ORAL CAPSULE 2 tablets in the am and 1 tablet at hs PENTOSAN POLYSULFATE SODIUM 50981721156 No Longer Active Robert jade Hu MD Active MUCINEX D 60-600 MG ORAL TABLET EXTENDED RELEASE 12 HOUR 1 t ab po q am PSEUDOEPHEDRINE-GUAIFENESIN 25263802158 No Longer Act nael Carlton Hu MD Active MUCINEX DM MAXIMUM STRENGTH 60-1200 MG ORAL TABLET EXT ENDED RELEASE 12 HOUR 1 tab po q am DEXTROMETHORPHAN-GUAIFENESIN 57725916898 No Longer Active Carlton Hu MD Active TUSSIONEX PENNKINETIC ER 10-8 MG/5ML ORAL SUSPENSION E XTENDED RELEASE 5ml po q12hr PRN Cough HYDROCOD POLST-CHLORPHEN POLST 5 5321010543 No Longer Active Carlton Hu MD Active POTASSIUM CHLORIDE ER 20 MEQ ORAL TABLET EXTENDED RELE ASE Take 1 by mouth 4 times daily for 7 days POTASSIUM CHLORIDE 54615357898 No Longer Active Carlton Hu MD Active ZITHROMAX 250 MG ORAL TABLET 2 po today, then 1 po q days 2-5 14/09/04 AZITHROMYCIN 12169245012 No Longer Active Elise Garcia APRN Active TUSSIONEX PENNKINETIC ER 10-8 MG/5ML ORAL SUSPENSION E XTENDED RELEASE 5 ml twice a day as needed for cough HYDROCOD POLST-CHLORPH EN POLST 06558326297 No Longer Active Elise Garcia APRN Active MONTELUKAST SODIUM 10 MG ORAL TABLET 1 po daily for Allergy MONTELUKAST SODIUM 95476289347 Active Carlton Hu MD Ac tive TUSSIONEX PENNKINETIC ER 10-8 MG/5ML ORAL SUSPENSION E XTENDED RELEASE 5ml po q12hr PRN Cough HYDROCOD POLST-CHLORPHEN POLST 5 6456042786 No Longer Active Hugo Restrepo MD Active GABAPENTIN 100 MG ORAL CAPSULE 1 po BID for fibromyalgia GABAPENTIN 16017939460 Active ALFREDO Holly Active LYRICA 100 MG ORAL CAPSULE Take 1 tab po BID for fibromyalgia 20 11/08/21 PREGABALIN 19285267460 No Longer Active Elise Garcia APRN A ctive PREDNISONE 20 MG ORAL TABLET 2 tabs daily for 3 days, 1 tab daily for 3 days, 1/2 tab daily for 2 days PREDNISONE 63808850857 No Longer Active Jillina Frazell PEN TENDER Active TUSSIONEX PENNKINETIC ER 10-8 MG/5ML ORAL SUSPENSION E XTENDED RELEASE 5 mL PO q 12 hrs PRN cough HYDROCOD POLST-CHLORPHEN POLST 569876 85775 No Longer Active Jillina Frazell PEN TENDER Active FLUTICASONE PROPIONATE 50 MCG/ACT NASAL SUSPENSION 2 s prays each nostril daily until bottle is empty FLUTICASONE PROPIONATE 713306852 99 No Longer Active Jillina Frazell PEN TENDER Active ASMANEX 60 METERED DOSES 220 MCG/INH INHALATION AEROSO L POWDER BREATH ACTIVATED 1 puff bid with rinse after MOMETASONE FUROATE 7756388 4102 No Longer Active Jillina Frazell PEN TENDER Active ZITHROMAX Z-REYNA 250 MG ORAL TABLET 2 today, then 1 daily for 4 d ays AZITHROMYCIN 32259563838 No Longer Active Elise Garcia PEN TENDER Active TUSSIONEX PENNKINETIC ER 10-8 MG/5ML ORAL SUSPENSION E XTENDED RELEASE 5ml po q12hr PRN Cough HYDROCOD POLST-CHLORPHEN POLST 5 1333974742 No Longer Active Elise Garcia PEN TENDER Active PREDNISONE 20 MG ORAL TABLET 2 tabs daily for 3 days, 1 tab daily for 3 days, 1/2 tab daily for 2 days PREDNISONE 46079416853 No Longer Active Jillina Frazell PEN TENDER Active AMOXICILLIN 500 MG ORAL CAPSULE 2 po BID x 10 days 201 09/29/08 AMOXICILLIN 11438309703 No Longer Active Diya De Guzman PEN TENDER Act nael SINGULAIR 10 MG ORAL TABLET 1 po qday for allergies 14/01/12 MONTELUKAST SODIUM 55513658294 No Longer Active Carlton Hu MD Active LEVAQUIN 500 MG ORAL TABLET 1 tablet by mouth daily 13/09/24 LEVOFLOXACIN 19226921247 No Longer Active Carlton Hu MD Acti ve FLUTICASONE PROPIONATE 50 MCG/ACT NASAL SUSPENSION 2 s prays each nostril daily for 2 weeks, then 1 spray each nostril daily. FLUTICASONE PROPIONATE 40327178014 Active Carlton Hu MD Active ZITHROMAX 250 MG ORAL TABLET 2 po today, then 1 po q days 2-5 20 13/08/10 AZITHROMYCIN 67867112537 No Longer Active Elise Garcia PEN TENDER Active XANAX 0.5 MG ORAL TABLET one tablet by mouth daily prn anxiety 2015 ALPRAZOLAM 11315577950 Active ALFREDO Holly Active CEFDINIR 300 MG ORAL CAPSULE 1 po BID x 10 days CEFDINIR 87045194964 No Longer Active Carlton Hu MD Active ZOCOR 40 MG ORAL TABLET 1 tab by mouth daily SI MVASTATIN 68352037564 No Longer Active Carlton Hu MD Active CYCLOBENZAPRINE HCL 10 MG ORAL TABLET 1 tablet by mouth BID prn had pain CYCLOBENZAPRINE HCL 40049198906 No Longer Active Jayden Hu MD Active LEVOFLOXACIN 500 MG ORAL TABLET 1 tab PO daily x 10 days LEVOFLOXACIN 82600907663 No Longer Active Carlton Hu MD Acti ve PREDNISONE 20 MG ORAL TABLET 3 tab PO qd x 2d, 2 tab P O qd x 2d, 1 tab PO qd x 2d, 1/2 tab PO qd x 2d PREDNISONE 51419668497 No Lo nger Active Carlton Hu MD Active FLUTICASONE PROPIONATE 50 MCG/ACT NASAL SUSPENSION 1 t o 2 sprays each nostril daily FLUTICASONE PROPIONATE 92476838102 No Longer Ac tive Blaine HERNANDEZ Active CHERATUSSIN AC 100-10 MG/5ML ORAL SYRUP 1 tsp by mouth every 4 hours as needed for cough GUAIFENESIN-CODEINE 00255561723 No Longe r Active Blaine HERNANDEZ Active PROMETHAZINE-CODEINE 6.25-10 MG/5ML ORAL SYRUP 1 tsp b y mouth every 6 hours if needed for cough PROMETHAZINE-CODEINE 99201572557 No Longer Active Blaine HERNANDEZ Active CHERATUSSIN AC 100-10 MG/5ML ORAL SYRUP 1 tsp by mouth every 4 hours as needed for cough GUAIFENESIN-CODEINE 51283104998 No Longe r Active Blaine HERNANDEZ Active ZITHROMAX Z-REYNA 250 MG ORAL TABLET 2 today, then 1 daily for 4 d ays AZITHROMYCIN 65953647485 No Longer Active Columba Raida Act nael ZITHROMAX 250 MG ORAL TABLET 2 po today, then 1 po q days 2-5 20 14/03/21 AZITHROMYCIN 34032393666 No Longer Active Carlton Hu MD Active ZITHROMAX Z-REYNA 250 MG ORAL TABLET 2 today, then 1 daily for 4 d ays AZITHROMYCIN 77881102318 No Longer Active Columba Raida Act nael AUGMENTIN 875-125 MG ORAL TABLET 1 po BID x 10 days 13/01/20 AMOXICILLIN-POT CLAVULANATE 94442446677 No Longer Active Diya De Guzman APRN Active ZITHROMAX 250 MG ORAL TABLET 2 po today, then 1 po q days 2-5 20 12/08/14 AZITHROMYCIN 78177861248 No Longer Active Carlton Hu MD Active TRAMADOL HCL 50 MG ORAL TABLET 1 po tid with ES Tylenol TRAMADOL HCL 64992962263 Active Carlton Hu MD Active PREMARIN 0.625 MG ORAL TABLET TAKE 1 TAB BY MOUTH DAILY ESTROGENS CONJUGATED 58510400743 No Longer Active Ridge Bess DO A ctive CYMBALTA 30 MG ORAL CAPSULE DELAYED RELEASE PARTICLES 1 cap by mouth daily DULOXETINE HCL 55047184458 No Longer Active Ridge Ya ee DO Active AMOXICILLIN 500 MG ORAL CAPSULE 1 tab by mouth 3 times daily x 10 days AMOXICILLIN 09846843018 No Longer Active Carlton bustamante MD Active AMOXICILLIN 500 MG ORAL CAPSULE 1 tab by mouth 3 times daily x 10 days AMOXICILLIN 62213984783 No Longer Active Carlton bustamante MD Active PROMETHAZINE-CODEINE 6.25-10 MG/5ML ORAL SYRUP 1 tsp b y mouth every 8 hours prn cough PROMETHAZINE-CODEINE 54128464386 No Longer Acti ve Carlton Hu MD Active MEDROL 4 MG ORAL TABLET THERAPY PACK 6 pills x 1 day, then 5 pills x 1 day then 4 pills x 1 day, then 3 pills x 1 day, then 2 pills x 1 day, then 1 pill x 1 day, then stop METHYLPREDNISOLONE 04221984887 No Long er Active Perez Mora MD Active AZITHROMYCIN 250 MG ORAL TABLET 2 po qd x 1 day, then 1 po q d x 4 days AZITHROMYCIN 10968773533 No Longer Active Perez Ambriz MD Active SYMBICORT 160-4.5 MCG/ACT INHALATION AEROSOL 2 puffs bid wit h rinse after BUDESONIDE-FORMOTEROL FUMARATE 30612431705 N o Longer Active Perez Mora MD Active LYRICA 75 MG ORAL CAPSULE TAKE 1 CAPSULE BY MOUTH TWICE DAILY PREGABALIN 75014171700 No Longer Active Carlton Hu MD Acti ve TOPAMAX 25 MG ORAL TABLET 1 qHS x 1 week, then 1 BID x 1 week, then 1 qAM and 2 qHS x 1 week, then 2 BID (migraine prevention) T OPIRAMATE 24449641583 No Longer Active Jerica FUENTES Active TOPAMAX 50 MG ORAL TABLET take 1 tab po BID for migraines. 07/02 TOPIRAMATE 98701455368 No Longer Active Jerica FUENTES Active TRIAMCINOLONE ACETONIDE 0.1 % EXTERNAL CREAM apply three roger es daily prn rash TRIAMCINOLONE ACETONIDE 20516469708 No Longer Active Carlton Hu MD Active PAXIL 40 MG ORAL TABLET take 1 tab po qday for depression 0 PAROXETINE HCL 09260591385 Active Carlton Hu MD Active CHERATUSSIN AC 100-10 MG/5ML ORAL SYRUP 5ml po q6hr PRN Cough 20 13/04/14 GUAIFENESIN-CODEINE 48313140184 No Longer Active Carlton Hu MD Active MEDROL 4 MG ORAL TABLET THERAPY PACK 6 tabs on day 1, 5 tabs on day 2, 4 tabs on day 3, 3 tabs on day 4, 2 tabs on day 5, 1 tab on day 6 2013 METHYLPREDNISOLONE 33239039706 No Longer Active Perez Mora MD Active AZITHROMYCIN 250 MG ORAL TABLET 2 po qd x 1 day, then 1 po q d x 4 days AZITHROMYCIN 60107091312 No Longer Active Perez Ambriz MD Active PROPRANOLOL HCL 60 MG ORAL TABLET 1 PO Q D PROPRANOLOL HCL 93495688112 No Longer Active Perez Mora MD Activ e CHERATUSSIN AC 100-10 MG/5ML ORAL SYRUP take one tsp po Q 6h ours prn cough GUAIFENESIN-CODEINE 84915120965 No Longer Active Zia Mora MD Active AUGMENTIN 875-125 MG ORAL TABLET 1 tab by mouth twice daily with food AMOXICILLIN-POT CLAVULANATE 51681526717 No Longer Act nael Perez Mora MD Active CHERATUSSIN AC 100-10 MG/5ML ORAL SYRUP 1 tsp by mouth every 4 hours as needed for cough GUAIFENESIN-CODEINE 70514587257 No Longe r Active Hugo Restrepo MD Active ACETAMINOPHEN-CODEINE #3 300-30 MG ORAL TABLET 1 PO Q 4-6 HRS HI N PAIN ACETAMINOPHEN-CODEINE 04309932612 No Longer Active Hugo Restrepo MD Active LEVAQUIN 500 MG ORAL TABLET take one po QD LEVO FLOXACIN 05102805738 No Longer Active Griffin HERNANDEZ Active PREDNISONE 20 MG ORAL TABLET Take 3 tabs daily for 3 d ays, 2 tabs daily for 3 days, 1 tab daily for 3 days, 1/2 tab daily for 3 days 11/07 PREDNISONE 38531511778 No Longer Active Carlton Hu MD Acti ve AVELOX 400 MG ORAL TABLET 1 tab by mouth daily MOXIFLOXACIN HCL 07537549415 No Longer Active Carlton Hu MD Active CHERATUSSIN AC 100-10 MG/5ML ORAL SYRUP 1 tsp by mouth every 4 hours as needed for cough GUAIFENESIN-CODEINE 19263629215 No Longe r Active Hugo Restrepo MD Active AVELOX 400 MG ORAL TABLET 1 tab by mouth daily MOXIFLOXACIN HCL 27112784745 No Longer Active Marcy De La Rosa MD PhD Active TERBINAFINE HCL 250 MG ORAL TABLET 1 qDay T ERBINAFINE HCL 29263813809 No Longer Active Marcy De La Rosa MD PhD Active CHERATUSSIN AC 100-10 MG/5ML ORAL SYRUP 1 tsp by mouth every 4 hours as needed for cough GUAIFENESIN-CODEINE 68569396562 No Longe r Active Marcy De La Rosa MD PhD Active AVELOX 400 MG ORAL TABLET 1 tab by mouth daily MOXIFLOXACIN HCL 36957394963 No Longer Active Marcy De La Rosa MD PhD Active HYDROCODONE-ACETAMINOPHEN 5-325 MG ORAL TABLET 1 po q 6hr PRN co ugh HYDROCODONE-ACETAMINOPHEN 29985154285 No Longer Active Marcy De La Rosa MD PhD Active PREDNISONE 20 MG ORAL TABLET 2 tabs daily for 3 days, 1 tab daily for 3 days, 1/2 tab daily for 2 days PREDNISONE 26826733131 No Longer Active Carlton Hu MD Active CEFDINIR 300 MG ORAL CAPSULE by mouth twice a day 2011 CEFDINIR 45842068908 No Longer Active Carlton Hu MD Acti ve HYDROCHLOROTHIAZIDE 25 MG ORAL TABLET 1 TAB PO DAILY HYDROCHLOROTHIAZIDE 55453209821 Active Carlton Hu MD A ctive ACETAMINOPHEN-CODEINE #3 300-30 MG ORAL TABLET 1 tablet po q 4-6 hrs prn pain ACETAMINOPHEN-CODEINE 80233372030 No Longer Active Ridge Bess DO Active ZITHROMAX 250 MG ORAL TABLET 2 po today, then 1 po q days 2-5 20 03/07/07 AZITHROMYCIN 19814464939 No Longer Active Carlton Hu MD Active CHERATUSSIN AC 100-10 MG/5ML ORAL SYRUP take 1 tsp po q4-6 h ours prn cough GUAIFENESIN-CODEINE 20992695760 No Longer Active Jayden Hu MD Active ACETAMINOPHEN-CODEINE #3 300-30 MG ORAL TABLET 1 PO Q 4-6 HR PRN PAIN ACETAMINOPHEN-CODEINE 00170518505 No Longer Active Da raimundo Hu MD Active LORTAB 7.5-500 MG/15ML ORAL ELIXIR 7.5 ml po q 4 hour prn cough HYDROCODONE-ACETAMINOPHEN 72690094434 No Longer Active Carlton Hu MD Active PREDNISONE 20 MG ORAL TABLET 1 po bid 3 days, then 1 po q day 3 days PREDNISONE 82641520964 No Longer Active Carlton Hu MD Active CEFDINIR 300 MG ORAL CAPSULE by mouth twice a day 2011 CEFDINIR 98666256314 No Longer Active Carlton Hu MD Acti ve CEFDINIR 300 MG ORAL CAPSULE by mouth twice a day 2010 CEFDINIR 14557612070 No Longer Active Carlton Hu MD Acti ve CEFDINIR 300 MG ORAL CAPSULE by mouth twice a day 2010 CEFDINIR 47485234186 No Longer Active Carlton Hu MD Acti ve TESSALON PERLES 100 MG ORAL CAPSULE 1 tablet by mouth 3 times daily as needed for cough BENZONATATE 06971160746 No Longer Active Carlton uH MD Active CEFDINIR 300 MG ORAL CAPSULE by mouth twice a day 2010 CEFDINIR 79600548062 No Longer Active Carlton Hu MD Acti ve ZITHROMAX Z-REYNA 250 MG ORAL TABLET 2 today, then 1 daily for 4 d ays AZITHROMYCIN 57079743674 No Longer Active Hugo Restrepo MD Active TESSALON PERLES 100 MG ORAL CAPSULE 1 tablet by mouth 3 times daily as needed for cough TESSALON PERLES 100 MG ORAL CAPSULE 93856 7 BENZONATATE Inactive PREDNISONE 20 MG ORAL TABLET 1 po bid 3 days, then 1 po q day 3 days PREDNISONE 20 MG ORAL TABLET 790754 PREDNISONE Ivor ctive LORTAB 7.5-500 MG/15ML ORAL ELIXIR 7.5 [...] cough CHERATUSSIN AC 100-10 MG/5ML ORAL SYRUP 918735 GUAIFENESIN-CODEINE Inactive ACETAMINOPHEN-CODEINE #3 300-30 MG ORAL TABLET 1 tablet po q 4-6 hrs prn pain ACETAMINOPHEN-CODEINE #3 300-30 MG ORAL TABLET ACETAMINOPHEN-CODEINE Inactive HYDROCODONE-ACETAMINOPHEN 5-325 MG ORAL TABLET 1 po q 6hr PRN co ugh HYDROCODONE-ACETAMINOPHEN 5-325 MG ORAL TABLET 444296 HYDROCODONE-ACETAMINOPHEN Inactive AVELOX 400 MG ORAL TABLET 1 tab by mouth daily AVELOX 400 MG ORAL TABLET 268890 MOXIFLOXACIN HCL Inactive CHERATUSSIN AC 100-10 MG/5ML ORAL SYRUP 1 tsp by mouth every 4 hours as needed for cough CHERATUSSIN AC 100-10 MG/5ML ORAL SYRUP 9 57982 GUAIFENESIN-CODEINE Inactive TERBINAFINE HCL 250 MG ORAL TABLET 1 qDay 07/08 TERBINAFINE HCL 250 MG ORAL TABLET 693672 TERBINAFINE HCL Inactive CHERATUSSIN AC 100-10 MG/5ML ORAL SYRUP 1 tsp by mouth every 4 hours as needed for cough CHERATUSSIN AC 100-10 MG/5ML ORAL SYRUP 9 05843 GUAIFENESIN-CODEINE Inactive ACETAMINOPHEN-CODEINE #3 300-30 MG ORAL TABLET 1 PO Q 4-6 HRS HI N PAIN ACETAMINOPHEN-CODEINE #3 300-30 MG ORAL TABLET ACETAMINOPHEN-CODEINE Inactive CHERATUSSIN AC 100-10 MG/5ML ORAL SYRUP 1 tsp by mouth every 4 hours as needed for cough CHERATUSSIN AC 100-10 MG/5ML ORAL SYRUP 9 50666 GUAIFENESIN-CODEINE Inactive AUGMENTIN 875-125 MG ORAL TABLET 1 tab by mouth twice daily with food AUGMENTIN 875-125 MG ORAL TABLET AMOXICIL MADELINE-POT CLAVULANATE Inactive CHERATUSSIN AC 100-10 MG/5ML ORAL SYRUP take one tsp po Q 6h ours prn cough CHERATUSSIN AC 100-10 MG/5ML ORAL SYRUP 574163 GUAIFENESIN-CODEINE Inactive PROPRANOLOL HCL 60 MG ORAL TABLET 1 PO Q D PROPRANOLOL HCL 60 MG ORAL TABLET 065727 PROPRANOLOL HCL Inactive TOPAMAX 50 MG ORAL TABLET take 1 tab po BID for migraines. 07/02 TOPAMAX 50 MG ORAL TABLET 278942 TOPIRAMATE Inacti ve TOPAMAX 25 MG ORAL TABLET 1 qHS x 1 week, then 1 BID x 1 week, then 1 qAM and 2 qHS x 1 week, then 2 BID (migraine prevention) TOPAMAX 25 MG ORAL TABLET 967460 TOPIRAMATE Inactive LYRICA 75 MG ORAL CAPSULE TAKE 1 CAPSULE BY MOUTH TWICE DAILY LYRICA 75 MG ORAL CAPSULE PREGABALIN Inactive SYMBICORT 160-4.5 MCG/ACT INHALATION AEROSOL 2 puffs bid wit h rinse after SYMBICORT 160-4.5 MCG/ACT INHALATION AEROSOL BUDESONIDE- FORMOTEROL FUMARATE Inactive PROMETHAZINE-CODEINE 6.25-10 MG/5ML ORAL SYRUP 1 tsp b y mouth every 8 hours prn cough PROMETHAZINE-CODEINE 6.25-10 MG/ 5ML ORAL SYRUP 010796 PROMETHAZINE-CODEINE Inactive CYMBALTA 30 MG ORAL CAPSULE DELAYED RELEASE PARTICLES 1 cap by mouth daily CYMBALTA 30 MG ORAL CAPSULE DELAYED RELE ASE PARTICLES 855285 DULOXETINE HCL Inactive PREMARIN 0.625 MG ORAL TABLET TAKE 1 TAB BY MOUTH DAILY PREMARIN 0.625 MG ORAL TABLET ESTROGENS CONJUGATED Inactive CHERATUSSIN AC 100-10 MG/5ML ORAL SYRUP 1 tsp by mouth every 4 hours as needed for cough CHERATUSSIN AC 100-10 MG/5ML ORAL SYRUP 9 05643 GUAIFENESIN-CODEINE Inactive PROMETHAZINE-CODEINE 6.25-10 MG/5ML ORAL SYRUP 1 tsp b y mouth every 6 hours if needed for cough PROMETHAZINE-CODEINE 6.25-10 MG/5ML ORAL SYRUP 266325 PROMETHAZINE-CODEINE Inactive CHERATUSSIN AC 100-10 MG/5ML ORAL SYRUP 1 tsp by mouth every 4 hours as needed for cough CHERATUSSIN AC 100-10 MG/5ML ORAL SYRUP 9 45151 GUAIFENESIN-CODEINE Inactive FLUTICASONE PROPIONATE 50 MCG/ACT NASAL SUSPENSION 1 t o 2 sprays each nostril daily FLUTICASONE PROPIONATE 50 MCG/AC T NASAL SUSPENSION 2047120 FLUTICASONE PROPIONATE Inactive PREDNISONE 20 MG ORAL TABLET 3 tab PO qd x 2d, 2 tab P O qd x 2d, 1 tab PO qd x 2d, 1/2 tab PO qd x 2d PREDNISONE 20 MG ORAL TAB LET 084441 PREDNISONE Inactive LEVOFLOXACIN 500 MG ORAL TABLET 1 tab PO daily x 10 days LEVOFLOXACIN 500 MG ORAL TABLET 461583 LEVOFLOXACIN Inactive CYCLOBENZAPRINE HCL 10 MG ORAL TABLET 1 tablet by mouth BID prn had pain CYCLOBENZAPRINE HCL 10 MG ORAL TABLET 756444 CYCLOBENZAPRINE HCL Inactive ZOCOR 40 MG ORAL TABLET 1 tab by mouth daily 4 ZOCOR 40 MG ORAL TABLET 134119 SIMVASTATIN Inactive TUSSIONEX PENNKINETIC ER 10-8 MG/5ML [...] FLUTICASONE PROPIO EFE 50 MCG/ACT NASAL SUSPENSION 8196835 FLUTICASONE PROPIONATE Inactive TUSSIONEX PENNKINETIC ER 10-8 [...] three days PREDNISONE 20 MG ORAL TABLET 474168 PREDNIS ONE Inactive PROAIR HFA 108 (90 BASE) MCG/ACT INHALATION AEROSOL SO LUTION 2 puffs four times a day as needed PROAIR HFA 108 (90 B ASE) MCG/ACT INHALATION AEROSOL SOLUTION ALBUTEROL SULFATE Inactive PREDNISONE 20 MG ORAL TABLET two tabs by mouth today, then one tab by mouth days two and three and four PREDNISONE 20 MG ORAL TAB LET 092073 PREDNISONE Inactive TUSSIONEX PENNKINETIC ER 10-8 MG/5ML [...] bid 04/20 TOPAMAX 100 MG ORAL TABLET 639655 TOPIRAMATE Inactive CYMBALTA 30 MG ORAL CAPSULE DELAYED RELEASE PARTICLES 1 cap by mouth daily for depression CYMBALTA 30 MG ORAL CAPSULE DELAYED RELEASE PARTICLES 745980 DULOXETINE HCL Inactive ZITHROMAX Z-REYNA 250 MG ORAL TABLET 2 today, then 1 daily for 4 d ays ZITHROMAX Z-REYNA 250 MG ORAL TABLET 626268 AZITHROMYCIN Inactive CEFDINIR 300 MG ORAL CAPSULE [...] 20 03/07/07 ZITHROMAX 250 MG ORAL TABLET 518476 AZITHROMYCIN Greer ctive CEFDINIR 300 MG ORAL CAPSULE by mouth twice a day 2011 CEFDINIR 300 MG ORAL CAPSULE 301398 CEFDINIR Inactive PREDNISONE 20 MG ORAL TABLET 2 tabs daily for 3 days, 1 tab daily for 3 days, 1/2 tab daily for 2 days PREDNISONE 20 MG ORAL T ABLET 137617 PREDNISONE Inactive AVELOX 400 MG ORAL TABLET 1 tab by mouth daily AVELOX 400 MG ORAL TABLET 982646 MOXIFLOXACIN HCL Inactive AVELOX 400 MG ORAL TABLET 1 tab by mouth daily AVELOX 400 MG ORAL TABLET 569822 MOXIFLOXACIN HCL Inactive PREDNISONE 20 MG ORAL TABLET Take 3 tabs daily for 3 d ays, 2 tabs daily for 3 days, 1 tab daily for 3 days, 1/2 tab daily for 3 days 11/07 PREDNISONE 20 MG ORAL TABLET 320819 PREDNISONE Inactive LEVAQUIN 500 MG ORAL TABLET take one po QD LEVAQUIN 500 MG ORAL TABLET 696628 LEVOFLOXACIN Inactive AZITHROMYCIN 250 MG ORAL TABLET 2 po qd x 1 day, then 1 po q d x 4 days AZITHROMYCIN 250 MG ORAL TABLET 950618 AZITHROMY GIOVANNI Inactive MEDROL 4 MG ORAL TABLET THERAPY PACK 6 tabs on day 1, 5 tabs on day 2, 4 tabs on day 3, 3 tabs on day 4, 2 tabs on day 5, 1 tab on day 6 2013 MEDROL 4 MG ORAL TABLET THERAPY PACK 203762 METHYLPREDNISOLONE Greer ctive CHERATUSSIN AC 100-10 MG/5ML ORAL SYRUP 5ml po q6hr PRN Cough 20 13/04/14 CHERATUSSIN AC 100-10 MG/5ML ORAL SYRUP 384086 GUAIFENE SIN-CODEINE Inactive TRIAMCINOLONE ACETONIDE 0.1 % EXTERNAL CREAM apply three roger es daily prn rash TRIAMCINOLONE ACETONIDE 0.1 % EXTERNAL CREAM 101 4314 TRIAMCINOLONE ACETONIDE Inactive AZITHROMYCIN 250 MG ORAL TABLET 2 po qd x 1 day, then 1 po q d x 4 days AZITHROMYCIN 250 MG ORAL TABLET 359643 AZITHROMY GIOVANNI Inactive MEDROL 4 MG ORAL TABLET THERAPY PACK 6 pills x 1 day, then 5 pills x 1 day then 4 pills x 1 day, then 3 pills x 1 day, then 2 pills x 1 day, then 1 pill x 1 day, then stop MEDROL 4 MG ORAL TABLET THERAPY PACK [id number] METHYLPREDNISOLONE Inactive AMOXICILLIN 500 MG ORAL CAPSULE 1 tab by mouth 3 times daily x 10 days AMOXICILLIN 500 MG ORAL CAPSULE 376348 AMOXICILL IN Inactive AMOXICILLIN 500 MG ORAL CAPSULE 1 tab by mouth 3 times daily x 10 days AMOXICILLIN 500 MG ORAL CAPSULE 949279 AMOXICILL IN Inactive ZITHROMAX 250 MG ORAL TABLET 2 po today, then 1 po q days 2-5 20 12/08/14 ZITHROMAX 250 MG ORAL TABLET 639497 AZITHROMYCIN Greer ctive AUGMENTIN 875-125 MG ORAL TABLET 1 po BID x 10 days 20 13/01/20 AUGMENTIN 875-125 MG ORAL TABLET AMOXICILLIN-POT CLAVULANATE Inactive ZITHROMAX Z-REYNA 250 MG ORAL TABLET 2 today, then 1 daily for 4 d ays ZITHROMAX Z-REYNA 250 MG ORAL TABLET 018763 AZITHROMYCIN Inactive ZITHROMAX 250 MG ORAL TABLET 2 po today, then 1 po q days 2-5 20 14/03/21 ZITHROMAX 250 MG ORAL TABLET 480673 AZITHROMYCIN Greer ctive ZITHROMAX Z-REYNA 250 MG ORAL TABLET 2 today, then 1 daily for 4 d ays ZITHROMAX Z-REYNA 250 MG ORAL TABLET 561802 AZITHROMYCIN Inactive CEFDINIR 300 MG ORAL CAPSULE 1 po BID x 10 days 06/21 CEFDINIR 300 MG ORAL CAPSULE 20020704 CEFDINIR Inactive ZITHROMAX 250 MG ORAL TABLET 2 po today, then 1 po q days 2-5 20 13/08/10 ZITHROMAX 250 MG ORAL TABLET 897491 AZITHROMYCIN Greer ctive LEVAQUIN 500 MG ORAL TABLET 1 tablet by mouth daily 13/09/24 LEVAQUIN 500 MG ORAL TABLET 19971102 LEVOFLOXACIN Inactive SINGULAIR 10 MG ORAL TABLET 1 po qday for allergies 14/01/12 SINGULAIR 10 MG ORAL TABLET 20010504 MONTELUKAST SODIUM Inactive AMOXICILLIN 500 MG ORAL CAPSULE 2 po BID x 10 days 201 09/29/08 AMOXICILLIN 500 MG ORAL CAPSULE 349886 AMOXICILLIN Inactive PREDNISONE 20 MG ORAL TABLET 2 tabs daily for 3 days, 1 tab daily for 3 days, 1/2 tab daily for 2 days PREDNISONE 20 MG ORAL T ABLET 039799 PREDNISONE Inactive ZITHROMAX Z-REYNA 250 MG ORAL TABLET 2 today, then 1 daily for 4 d ays ZITHROMAX Z-REYNA 250 MG ORAL TABLET 159372 AZITHROMYCIN Inactive PREDNISONE 20 MG ORAL TABLET 2 tabs daily for 3 days, 1 tab daily for 3 days, 1/2 tab daily for 2 days PREDNISONE 20 MG ORAL T ABLET 477587 PREDNISONE Inactive ZITHROMAX 250 MG ORAL TABLET 2 po today, then 1 po q days 2-5 20 14/09/04 ZITHROMAX 250 MG ORAL TABLET 012559 AZITHROMYCIN Greer ctive AMOXICILLIN 500 MG ORAL CAPSULE 1 cap by mouth three times a day AMOXICILLIN 500 MG ORAL CAPSULE 668196 AMOXICILLIN Inactive TERBINAFINE HCL 250 MG ORAL TABLET 1 qDay for nail fungus 7 TERBINAFINE HCL 250 MG ORAL TABLET 630014 TERBINAFINE HCL Inact nael AUGMENTIN 875-125 MG ORAL TABLET 1 po BID x 10 days 20 16/03/22 AUGMENTIN 875-125 MG ORAL TABLET AMOXICILLIN-POT CLAVULANATE Inactive PREDNISONE 20 MG ORAL TABLET 2 po qd x 5 days PREDNISONE 20 MG ORAL TABLET 783156 PREDNISONE Inactive AZITHROMYCIN 250 MG ORAL TABLET 2 po qd x 1 day, then 1 po q d x 4 days AZITHROMYCIN 250 MG ORAL TABLET 972900 AZITHROMY GIOVANNI Inactive PREDNISONE 50 MG ORAL TABLET Take 50 mg dialy for 6 day s 7 PREDNISONE 50 MG ORAL TABLET 574835 PREDNISONE Inactive AUGMENTIN 875-125 MG ORAL TABLET 1 po BID x 10 days 18/04/16 AUGMENTIN 875-125 MG ORAL TABLET AMOXICILLIN-POT CLAVULANATE Inactive DOXYCYCLINE HYCLATE 100 MG ORAL CAPSULE 1 cap by mouth twice latasha ly DOXYCYCLINE HYCLATE 100 MG ORAL CAPSULE 3045107 DOXYCYCL INE HYCLATE Inactive PREDNISONE 20 MG ORAL TABLET Take 2 tabs day 1 and 2 and 1 t ab days 3 and 4 PREDNISONE 20 MG ORAL TABLET 897062 PREDNISONE Inactive AMOXICILLIN 500 MG ORAL CAPSULE 1 cap by mouth twice daily 10/21 AMOXICILLIN 500 MG ORAL CAPSULE 022050 AMOXICILLIN Inactive Vital Signs Date Name Value [...] - Chem istry sodium, serum 139 mmol/L 770-214 3287/10/12 potassium, serum 3.8 mmol/L 3.5-5.2 chloride, serum [...] negative Encounters Code Encounter Date Provider Facility CPT-71950 Level 3 Est. Patient 16:08:07 CDT David lion [facility] CPT-18223 Level 3 Est. Patient 16:53:54 CDT May haas MD [facility] CPT-65544 [id number] Vst-Est Level IV 08:41:[address] Carlton Hu MD [facility] CPT-67123 Level 3 Est. Patient 09:46:49 [employer]OTHERS HELPER David lion [facility] CPT-86202 [id number] Vst-Est Level III 11:12:16 CDT Yanet Bess DO [facility] CPT-70598 Level 3 Est. Patient 11:34:49 [employer]OTHERS HELPER Perez Mora MD [facility] CPT-65846 Level 4 Est. Patient 09:51:32 [employer]OTHERS HELPER Carlton rich MD [facility] CPT-97367 Level 3 Est. Patient 10:26:00 MOTHERS HELPER Elise stephenson [facility] CPT-70526 Level 3 Est. Patient 13:35:41 [employer]OTHERS HELPER Carlton rich MD [facility] CPT-87855 Level 3 Est. Patient 10:03:52 [employer]OTHERS HELPER Carlton rich MD [facility] CPT-35900 Level 3 Est. Patient 12:17:50 CDT Hugo Restrepo MD [facility]-10947 Level 3 Est. Patient 13:42:38 CDT Elise stephenson [facility] CPT-26832 Level 3 Est. Patient 13:23:51 CDT Diya cobian [facility]-55689 Level 3 Est. Patient 14:22:19 [employer]OTHERS HELPER Diya cobian [facility] CPT-04984 Level 3 Est. Patient 10:11:46 CDT Carlton rich MD [facility] CPT-51521 Level 3 Est. Patient 17:29:43 CDT Elise Are ll [facility] CPT-29222 Level 3 Est. Patient 11:58:06 CDT Elise Are ll [facility] CPT-99990 Level 4 Est. Patient 14:36:51 CDT Carlton rich MD [facility]-82450 Level 3 Est. Patient 18:16:00 MOTHERS HELPER Blaine Freeman [facility]-77169 Level 3 Est. Patient 09:45:49 [employer]OTHERS HELPER Carlton rich MD [facility] CPT-64100 Level 3 Est. Patient 13:19:20 CDT Cralton rich MD [facility] CPT-62701 Level 3 Est. Patient 13:06:43 CDT Ridge tam DO [facility] CPT-40209 Level 3 Est. Patient 10:03:07 CDT Perez Mora MD [facility]-69236 Level 3 Est. Patient 19:50:35 [employer]OTHERS HELPER Carlton rich MD [facility] CPT-46291 Level 4 Est. Patient 18:05:01 [employer]OTHERS HELPER Carlton rich MD [facility] CPT-33158 Level 3 Est. Patient 10:45:55 [employer]OTHERS HELPER Hugo Restrepo MD [facility] CPT-18947 Level 3 Est. Patient 14:12:49 CDT Griffin lincoln [facility]-68724 Level 3 Est. Patient 17:37:24 CDT Carlton rich MD [facility] CPT-94492 Level 3 Est. Patient 16:51:54 CDT Carlton rich MD [facility] CPT-99414 Level 3 Est. Patient 12:18:11 CDT Hugo Restrepo MD [facility] CPT-06023 Level 3 Est. Patient 11:30:25 CDT Marcy crisostomo MD PhD [facility] CPT-74701 Level 3 Est. Patient 12:00:47 [employer]OTHERS HELPER Carlton rich MD [facility] CPT-91060 Level 3 Est. Patient 16:31:06 [employer]OTHERS HELPER Carlton rich MD [facility] CPT-26936 Level 3 Est. Patient 16:23:24 MOTHERS HELPER Ridge tam [facility] CPT-59357 Level 3 Est. Patient 12:34:12 CDT Carlton rich MD [facility] CPT-67027 Level 2 Est. Patient 15:43:33 CDT Robi armstrong MD [facility] CPT-23561 Level 4 Est. Patient 14:04:44 CDT Carlton rich MD [facility] CPT-98638 Level 3 Est. Patient 05:47:[address] [facility] CPT-00042 Level 3 Est. Patient 13:12:53 [employer]OTHERS HELPER Carlton rich MD [facility] CPT-75603 Level 3 Est. Patient 14:26:53 CDT Hugo Restrepo MD [facility] Procedures Code Procedure Name Date Entry Date Standard Desc ription CPT-000 Give Appropriate Flu Vaccine 14:14:31 CDT 2 CPT-J1040 Depo Medrol 80 mg (Methyl Prednisolone A cetate) 10:42:44 CDT CPT-J1100 Decadron 8mg (Dexamethasone) 10:42:44 CDT 2 017/06/05 CPT-J0696 Rocephin 1gm Inj Solr 14:32:13 CDT CPT-J1020 Depo Medrol 60 mg (Methyl Prednisolone A cetate) 14:32:13 CDT CPT-J1100 Decadron 6mg (Dexamethasone) 14:32:13 CDT 2 CPT-98215 Hip bilat min 2V w AP pelvis 13:16:20 CDT 2 CPT-46538 Pelvis only 13:07:33 CDT CPT-55100 Spec Collection and Handling Fee 11:25:12 C DT CPT-76376 Fluzone Quadrivalent Intramuscular Suspe nsion 0.5 ML 14:31:55 CDT CPT-21738 Abx/Therapy Injection 13:28:47 MOTHERS HELPER CPT-J2930 Solu Medrol 125 mg (Methyl Prednisolone Sodium Succinate) 12:00:47 MOTHERS HELPER CPT-22686 Venipuncture Draw Fee 11:33:31 CDT CPT-03829 EKG Trac and Interp 11:21:09 CDT CPT-53884 Chest 2V Frontal and Lat 11:21:09 CDT 12/15 CPT-69093 Venipuncture Draw Fee 08:02:34 CDT CPT-40353 Chest 2V Frontal and Lat 05:47:59 CDT 06/05
--- OUTSIDE RECORDS SUMMARY | 2019-10-08 08:55 | XMS REPORT | Clinical Summary ---
Author Author Caitlin, Juliana Martinez Organization [facility] Address Unknown Phone Unavailable Allergies, [...] URI 465.9 Inactive Ridge Bess DO Ac galena upper respiratory infections of unspecified site Body [...] for up 2 weeks TRIAMCINOLONE ACETON KAYLA [id number] Active David Marianne BLADDER TRIMMER Active AMOXICILLIN 500 MG ORAL CAPSULE 1 cap by mouth twice daily 10/21 AMOXICILLIN 71907366542 No Longer Active David Marianne BLADDER TRIMMER Active ELMIRON 100 MG ORAL CAPSULE 2 capsules in the morning and 1 capsule at night PENTOSAN POLYSULFATE SODIUM 40563621466 Active Cinthia H art LINE CREWMAN Active CYMBALTA 30 MG ORAL CAPSULE DELAYED RELEASE PARTICLES 1 cap by mouth daily for depression DULOXETINE HCL 78850523969 No Longer Active Carlton Hu MD Active CYMBALTA 60 MG ORAL CAPSULE DELAYED RELEASE PARTICLES 1 cap by mouth daily for mood and pain DULOXETINE HCL 74285252533 Active Carlton Hu MD Active TUSSIONEX PENNKINETIC ER 10-8 MG/5ML ORAL SUSPENSION E XTENDED RELEASE 5ml po q12hr PRN Cough HYDROCOD POLST-CHLORPHEN POLST 08137079575 Active David Marianne BLADDER TRIMMER Active PREDNISONE 20 MG ORAL TABLET Take 2 tabs day 1 and 2 and 1 t ab days 3 and 4 PREDNISONE 65975660275 No Longer Active David Marianne BLADDER TRIMMER Active DOXYCYCLINE HYCLATE 100 MG ORAL CAPSULE 1 cap by mouth twice latasha ly DOXYCYCLINE HYCLATE 02565353377 No Longer Active David Marianne BLADDER TRIMMER Active TOPAMAX 100 MG ORAL TABLET Take 1 tablet po bid TOPIRAMATE 14030819450 No Longer Active David Marianne BLADDER TRIMMER Active TUSSIONEX PENNKINETIC ER 10-8 MG/5ML ORAL SUSPENSION E XTENDED RELEASE 5ml po q12hr PRN Cough HYDROCOD POLST-CHLORPHEN POLST 5 6832620352 No Longer Active David Marianne BLADDER TRIMMER Active AUGMENTIN 875-125 MG ORAL TABLET 1 po BID x 10 days 18/04/16 AMOXICILLIN-POT CLAVULANATE 81168562846 No Longer Active David Lopes APRN Active PREDNISONE 50 MG ORAL TABLET Take 50 mg dialy for 6 day s 7 PREDNISONE 78971307280 No Longer Active David Marianne BLADDER TRIMMER Active TUSSIONEX PENNKINETIC ER 10-8 MG/5ML ORAL SUSPENSION E XTENDED RELEASE 5ml po q12hr PRN Cough HYDROCOD POLST-CHLORPHEN POLST 5 9147511119 No Longer Active Cherelle Torres RN Active PREDNISONE 20 MG ORAL TABLET two tabs by mouth today, then one tab by mouth days two and three and four PREDNISONE 92625772348 No Lo nger Active Cherelle Torres RN Active AZITHROMYCIN 250 MG ORAL TABLET 2 po qd x 1 day, then 1 po q d x 4 days AZITHROMYCIN 19285352777 No Longer Active Ridge Bess DO Active PREDNISONE 20 MG ORAL TABLET 2 po qd x 5 days P REDNISONE 61738056628 No Longer Active Perez Mora MD Active PROAIR HFA 108 (90 BASE) MCG/ACT INHALATION AEROSOL SO LUTION 2 puffs four times a day as needed ALBUTEROL SULFATE 24589802540 No Long er Active Becky FUENTES Active ASPIRIN 81 MG ORAL TABLET 1 po qd ASPIRIN 13486761043 Active Carlton Hu MD Active PREDNISONE 20 MG ORAL TABLET 1 tab twice daily for 3 d ay, then one daily for three days PREDNISONE 48166639289 No Longer Active Carlton Hu MD Active AUGMENTIN 875-125 MG ORAL TABLET 1 po BID x 10 days 20 16/03/22 AMOXICILLIN-POT CLAVULANATE 14496591953 No Longer Active Elise Garcia APRN Active TERBINAFINE HCL 250 MG ORAL TABLET 1 qDay for nail fungus 7 TERBINAFINE HCL 84399838848 No Longer Active Carlton Hu MD A ctive AMOXICILLIN 500 MG ORAL CAPSULE 1 cap by mouth three times a day AMOXICILLIN 74272777459 No Longer Active Carlton Hu MD Active ELMIRON 100 MG ORAL CAPSULE 2 tablets in the am and 1 tablet at hs PENTOSAN POLYSULFATE SODIUM 53304078867 No Longer Active Robert jade Hu MD Active MUCINEX D 60-600 MG ORAL TABLET EXTENDED RELEASE 12 HOUR 1 t ab po q am PSEUDOEPHEDRINE-GUAIFENESIN 15400573951 No Longer Act nael Carlton Hu MD Active MUCINEX DM MAXIMUM STRENGTH 60-1200 MG ORAL TABLET EXT ENDED RELEASE 12 HOUR 1 tab po q am DEXTROMETHORPHAN-GUAIFENESIN 47184275758 No Longer Active Carlton Hu MD Active TUSSIONEX PENNKINETIC ER 10-8 MG/5ML ORAL SUSPENSION E XTENDED RELEASE 5ml po q12hr PRN Cough HYDROCOD POLST-CHLORPHEN POLST 5 6339348919 No Longer Active Carlton Hu MD Active POTASSIUM CHLORIDE ER 20 MEQ ORAL TABLET EXTENDED RELE ASE Take 1 by mouth 4 times daily for 7 days POTASSIUM CHLORIDE 72186662657 No Longer Active Carlton Hu MD Active ZITHROMAX 250 MG ORAL TABLET 2 po today, then 1 po q days 2-5 14/09/04 AZITHROMYCIN 87510316501 No Longer Active Elise Garcia APRN Active TUSSIONEX PENNKINETIC ER 10-8 MG/5ML ORAL SUSPENSION E XTENDED RELEASE 5 ml twice a day as needed for cough HYDROCOD POLST-CHLORPH EN POLST 89191398148 No Longer Active Elise Garcia APRN Active MONTELUKAST SODIUM 10 MG ORAL TABLET 1 po daily for Allergy MONTELUKAST SODIUM 07857993253 Active Carlton Hu MD Ac tive TUSSIONEX PENNKINETIC ER 10-8 MG/5ML ORAL SUSPENSION E XTENDED RELEASE 5ml po q12hr PRN Cough HYDROCOD POLST-CHLORPHEN POLST 5 2674041017 No Longer Active Hugo Restrepo MD Active GABAPENTIN 100 MG ORAL CAPSULE 1 po BID for fibromyalgia GABAPENTIN 79159280054 Active ALFREDO Holly Active LYRICA 100 MG ORAL CAPSULE Take 1 tab po BID for fibromyalgia 20 11/08/21 PREGABALIN 41612593085 No Longer Active Elise Garcia APRN A ctive PREDNISONE 20 MG ORAL TABLET 2 tabs daily for 3 days, 1 tab daily for 3 days, 1/2 tab daily for 2 days PREDNISONE 95427590824 No Longer Active Jillina Frazell BLADDER TRIMMER Active TUSSIONEX PENNKINETIC ER 10-8 MG/5ML ORAL SUSPENSION E XTENDED RELEASE 5 mL PO q 12 hrs PRN cough HYDROCOD POLST-CHLORPHEN POLST 499746 07110 No Longer Active Jillina Frazell BLADDER TRIMMER Active FLUTICASONE PROPIONATE 50 MCG/ACT NASAL SUSPENSION 2 s prays each nostril daily until bottle is empty FLUTICASONE PROPIONATE 339910387 99 No Longer Active Jillina Frazell BLADDER TRIMMER Active ASMANEX 60 METERED DOSES 220 MCG/INH INHALATION AEROSO L POWDER BREATH ACTIVATED 1 puff bid with rinse after MOMETASONE FUROATE 8451990 4102 No Longer Active Jillina Frazell BLADDER TRIMMER Active ZITHROMAX Z-REYNA 250 MG ORAL TABLET 2 today, then 1 daily for 4 d ays AZITHROMYCIN 35503730371 No Longer Active Elise Garcia BLADDER TRIMMER Active TUSSIONEX PENNKINETIC ER 10-8 MG/5ML ORAL SUSPENSION E XTENDED RELEASE 5ml po q12hr PRN Cough HYDROCOD POLST-CHLORPHEN POLST 5 2581968625 No Longer Active Elise Garcia BLADDER TRIMMER Active PREDNISONE 20 MG ORAL TABLET 2 tabs daily for 3 days, 1 tab daily for 3 days, 1/2 tab daily for 2 days PREDNISONE 91355302623 No Longer Active Jillina Frazell BLADDER TRIMMER Active AMOXICILLIN 500 MG ORAL CAPSULE 2 po BID x 10 days 201 09/29/08 AMOXICILLIN 92237893398 No Longer Active Diya De Guzman BLADDER TRIMMER Act nael SINGULAIR 10 MG ORAL TABLET 1 po qday for allergies 14/01/12 MONTELUKAST SODIUM 19675642966 No Longer Active Carlton Hu MD Active LEVAQUIN 500 MG ORAL TABLET 1 tablet by mouth daily 13/09/24 LEVOFLOXACIN 23899952162 No Longer Active Carlton Hu MD Acti ve FLUTICASONE PROPIONATE 50 MCG/ACT NASAL SUSPENSION 2 s prays each nostril daily for 2 weeks, then 1 spray each nostril daily. FLUTICASONE PROPIONATE 99666629038 Active Carlton Hu MD Active ZITHROMAX 250 MG ORAL TABLET 2 po today, then 1 po q days 2-5 20 13/08/10 AZITHROMYCIN 18784542050 No Longer Active Elise Garcia BLADDER TRIMMER Active XANAX 0.5 MG ORAL TABLET one tablet by mouth daily prn anxiety 2015 ALPRAZOLAM 14037143867 Active ALFREDO Holly Active CEFDINIR 300 MG ORAL CAPSULE 1 po BID x 10 days CEFDINIR 80615023793 No Longer Active Carlton Hu MD Active ZOCOR 40 MG ORAL TABLET 1 tab by mouth daily SI MVASTATIN 98005637033 No Longer Active Carlton Hu MD Active CYCLOBENZAPRINE HCL 10 MG ORAL TABLET 1 tablet by mouth BID prn had pain CYCLOBENZAPRINE HCL 59034662760 No Longer Active Jayden Hu MD Active LEVOFLOXACIN 500 MG ORAL TABLET 1 tab PO daily x 10 days LEVOFLOXACIN 57841481602 No Longer Active Carlton Hu MD Acti ve PREDNISONE 20 MG ORAL TABLET 3 tab PO qd x 2d, 2 tab P O qd x 2d, 1 tab PO qd x 2d, 1/2 tab PO qd x 2d PREDNISONE 22695771062 No Lo nger Active Carlton Hu MD Active FLUTICASONE PROPIONATE 50 MCG/ACT NASAL SUSPENSION 1 t o 2 sprays each nostril daily FLUTICASONE PROPIONATE 99866463080 No Longer Ac tive Blaine HERNANDEZ Active CHERATUSSIN AC 100-10 MG/5ML ORAL SYRUP 1 tsp by mouth every 4 hours as needed for cough GUAIFENESIN-CODEINE 71479110021 No Longe r Active Blaine HERNANDEZ Active PROMETHAZINE-CODEINE 6.25-10 MG/5ML ORAL SYRUP 1 tsp b y mouth every 6 hours if needed for cough PROMETHAZINE-CODEINE 91278693561 No Longer Active Blaine HERNANDEZ Active CHERATUSSIN AC 100-10 MG/5ML ORAL SYRUP 1 tsp by mouth every 4 hours as needed for cough GUAIFENESIN-CODEINE 37990889659 No Longe r Active Blaine HERNANDEZ Active ZITHROMAX Z-REYNA 250 MG ORAL TABLET 2 today, then 1 daily for 4 d ays AZITHROMYCIN 04173082480 No Longer Active Columba Raida Act nael ZITHROMAX 250 MG ORAL TABLET 2 po today, then 1 po q days 2-5 20 14/03/21 AZITHROMYCIN 13652034127 No Longer Active Carlton Hu MD Active ZITHROMAX Z-REYNA 250 MG ORAL TABLET 2 today, then 1 daily for 4 d ays AZITHROMYCIN 16700739616 No Longer Active Columba Raida Act nael AUGMENTIN 875-125 MG ORAL TABLET 1 po BID x 10 days 13/01/20 AMOXICILLIN-POT CLAVULANATE 30227226908 No Longer Active Diya De Guzman APRN Active ZITHROMAX 250 MG ORAL TABLET 2 po today, then 1 po q days 2-5 20 12/08/14 AZITHROMYCIN 32069056229 No Longer Active Carlton Hu MD Active TRAMADOL HCL 50 MG ORAL TABLET 1 po tid with ES Tylenol TRAMADOL HCL 44805306457 Active Carlton Hu MD Active PREMARIN 0.625 MG ORAL TABLET TAKE 1 TAB BY MOUTH DAILY ESTROGENS CONJUGATED 61834164173 No Longer Active Ridge Bess DO A ctive CYMBALTA 30 MG ORAL CAPSULE DELAYED RELEASE PARTICLES 1 cap by mouth daily DULOXETINE HCL 56627705144 No Longer Active Ridge Ya ee DO Active AMOXICILLIN 500 MG ORAL CAPSULE 1 tab by mouth 3 times daily x 10 days AMOXICILLIN 67142366277 No Longer Active Carlton bustamante MD Active AMOXICILLIN 500 MG ORAL CAPSULE 1 tab by mouth 3 times daily x 10 days AMOXICILLIN 43256671310 No Longer Active Carlton bustamante MD Active PROMETHAZINE-CODEINE 6.25-10 MG/5ML ORAL SYRUP 1 tsp b y mouth every 8 hours prn cough PROMETHAZINE-CODEINE 87944415381 No Longer Acti ve Carlton Hu MD Active MEDROL 4 MG ORAL TABLET THERAPY PACK 6 pills x 1 day, then 5 pills x 1 day then 4 pills x 1 day, then 3 pills x 1 day, then 2 pills x 1 day, then 1 pill x 1 day, then stop METHYLPREDNISOLONE 46344682572 No Long er Active Perez Mora MD Active AZITHROMYCIN 250 MG ORAL TABLET 2 po qd x 1 day, then 1 po q d x 4 days AZITHROMYCIN 87643546710 No Longer Active Perez Ambriz MD Active SYMBICORT 160-4.5 MCG/ACT INHALATION AEROSOL 2 puffs bid wit h rinse after BUDESONIDE-FORMOTEROL FUMARATE 50489934025 N o Longer Active Perez Mora MD Active LYRICA 75 MG ORAL CAPSULE TAKE 1 CAPSULE BY MOUTH TWICE DAILY PREGABALIN 66545345413 No Longer Active Carlton Hu MD Acti ve TOPAMAX 25 MG ORAL TABLET 1 qHS x 1 week, then 1 BID x 1 week, then 1 qAM and 2 qHS x 1 week, then 2 BID (migraine prevention) T OPIRAMATE 56495300539 No Longer Active Jerica FUENTES Active TOPAMAX 50 MG ORAL TABLET take 1 tab po BID for migraines. 07/02 TOPIRAMATE 61039500528 No Longer Active Jerica FUENTES Active TRIAMCINOLONE ACETONIDE 0.1 % EXTERNAL CREAM apply three roger es daily prn rash TRIAMCINOLONE ACETONIDE 89837966181 No Longer Active Carlton Hu MD Active PAXIL 40 MG ORAL TABLET take 1 tab po qday for depression 0 PAROXETINE HCL 65044598474 Active Carlton Hu MD Active CHERATUSSIN AC 100-10 MG/5ML ORAL SYRUP 5ml po q6hr PRN Cough 20 13/04/14 GUAIFENESIN-CODEINE 63206863216 No Longer Active Carlton Hu MD Active MEDROL 4 MG ORAL TABLET THERAPY PACK 6 tabs on day 1, 5 tabs on day 2, 4 tabs on day 3, 3 tabs on day 4, 2 tabs on day 5, 1 tab on day 6 2013 METHYLPREDNISOLONE 29580010641 No Longer Active Perez Mora MD Active AZITHROMYCIN 250 MG ORAL TABLET 2 po qd x 1 day, then 1 po q d x 4 days AZITHROMYCIN 29784685820 No Longer Active Perez Ambriz MD Active PROPRANOLOL HCL 60 MG ORAL TABLET 1 PO Q D PROPRANOLOL HCL 83010855237 No Longer Active Perez Mora MD Activ e CHERATUSSIN AC 100-10 MG/5ML ORAL SYRUP take one tsp po Q 6h ours prn cough GUAIFENESIN-CODEINE 26936906767 No Longer Active Zia Mora MD Active AUGMENTIN 875-125 MG ORAL TABLET 1 tab by mouth twice daily with food AMOXICILLIN-POT CLAVULANATE 42126916769 No Longer Act nael Perez Mora MD Active CHERATUSSIN AC 100-10 MG/5ML ORAL SYRUP 1 tsp by mouth every 4 hours as needed for cough GUAIFENESIN-CODEINE 33111036620 No Longe r Active Hugo Restrepo MD Active ACETAMINOPHEN-CODEINE #3 300-30 MG ORAL TABLET 1 PO Q 4-6 HRS ID N PAIN ACETAMINOPHEN-CODEINE 60930162015 No Longer Active Hugo Restrepo MD Active LEVAQUIN 500 MG ORAL TABLET take one po QD LEVO FLOXACIN 67459230746 No Longer Active Griffin HERNANDEZ Active PREDNISONE 20 MG ORAL TABLET Take 3 tabs daily for 3 d ays, 2 tabs daily for 3 days, 1 tab daily for 3 days, 1/2 tab daily for 3 days 11/07 PREDNISONE 15058393532 No Longer Active Carlton Hu MD Acti ve AVELOX 400 MG ORAL TABLET 1 tab by mouth daily MOXIFLOXACIN HCL 13131550227 No Longer Active Carlton Hu MD Active CHERATUSSIN AC 100-10 MG/5ML ORAL SYRUP 1 tsp by mouth every 4 hours as needed for cough GUAIFENESIN-CODEINE 36126482943 No Longe r Active Hugo Restrepo MD Active AVELOX 400 MG ORAL TABLET 1 tab by mouth daily MOXIFLOXACIN HCL 92145587518 No Longer Active Marcy De La Rosa MD PhD Active TERBINAFINE HCL 250 MG ORAL TABLET 1 qDay T ERBINAFINE HCL 25671583106 No Longer Active Marcy De La Rosa MD PhD Active CHERATUSSIN AC 100-10 MG/5ML ORAL SYRUP 1 tsp by mouth every 4 hours as needed for cough GUAIFENESIN-CODEINE 04279955858 No Longe r Active Marcy De La Rosa MD PhD Active AVELOX 400 MG ORAL TABLET 1 tab by mouth daily MOXIFLOXACIN HCL 12101384322 No Longer Active Marcy De La Rosa MD PhD Active HYDROCODONE-ACETAMINOPHEN 5-325 MG ORAL TABLET 1 po q 6hr PRN co ugh HYDROCODONE-ACETAMINOPHEN 77527391806 No Longer Active Marcy De La Rosa MD PhD Active PREDNISONE 20 MG ORAL TABLET 2 tabs daily for 3 days, 1 tab daily for 3 days, 1/2 tab daily for 2 days PREDNISONE 98191585161 No Longer Active Carlton Hu MD Active CEFDINIR 300 MG ORAL CAPSULE by mouth twice a day 2011 CEFDINIR 50791200270 No Longer Active Carlton Hu MD Acti ve HYDROCHLOROTHIAZIDE 25 MG ORAL TABLET 1 TAB PO DAILY HYDROCHLOROTHIAZIDE 25520583576 Active Carlton Hu MD A ctive ACETAMINOPHEN-CODEINE #3 300-30 MG ORAL TABLET 1 tablet po q 4-6 hrs prn pain ACETAMINOPHEN-CODEINE 89151607412 No Longer Active Ridge Bess DO Active ZITHROMAX 250 MG ORAL TABLET 2 po today, then 1 po q days 2-5 20 03/07/07 AZITHROMYCIN 38257451166 No Longer Active Carlton Hu MD Active CHERATUSSIN AC 100-10 MG/5ML ORAL SYRUP take 1 tsp po q4-6 h ours prn cough GUAIFENESIN-CODEINE 80294546609 No Longer Active Jayden Hu MD Active ACETAMINOPHEN-CODEINE #3 300-30 MG ORAL TABLET 1 PO Q 4-6 HR PRN PAIN ACETAMINOPHEN-CODEINE 18230458187 No Longer Active Da raimundo Hu MD Active LORTAB 7.5-500 MG/15ML ORAL ELIXIR 7.5 ml po q 4 hour prn cough HYDROCODONE-ACETAMINOPHEN 35741310953 No Longer Active Carlton Hu MD Active PREDNISONE 20 MG ORAL TABLET 1 po bid 3 days, then 1 po q day 3 days PREDNISONE 23593646888 No Longer Active Carlton Hu MD Active CEFDINIR 300 MG ORAL CAPSULE by mouth twice a day 2011 CEFDINIR 16286127494 No Longer Active Carlton Hu MD Acti ve CEFDINIR 300 MG ORAL CAPSULE by mouth twice a day 2010 CEFDINIR 60303088844 No Longer Active Carlton Hu MD Acti ve CEFDINIR 300 MG ORAL CAPSULE by mouth twice a day 2010 CEFDINIR 32560788995 No Longer Active Carlton Hu MD Acti ve TESSALON PERLES 100 MG ORAL CAPSULE 1 tablet by mouth 3 times daily as needed for cough BENZONATATE 58540267196 No Longer Active Carlton Hu MD Active CEFDINIR 300 MG ORAL CAPSULE by mouth twice a day 2010 CEFDINIR 57349688169 No Longer Active Carlton Hu MD Acti ve ZITHROMAX Z-REYNA 250 MG ORAL TABLET 2 today, then 1 daily for 4 d ays AZITHROMYCIN 17976447827 No Longer Active Hugo Restrepo MD Active TESSALON PERLES 100 MG ORAL CAPSULE 1 tablet by mouth 3 times daily as needed for cough TESSALON PERLES 100 MG ORAL CAPSULE 08540 7 BENZONATATE Inactive PREDNISONE 20 MG ORAL TABLET 1 po bid 3 days, then 1 po q day 3 days PREDNISONE 20 MG ORAL TABLET 617416 PREDNISONE [place] ctive LORTAB 7.5-500 MG/15ML ORAL ELIXIR 7.5 [...] cough CHERATUSSIN AC 100-10 MG/5ML ORAL SYRUP 220349 GUAIFENESIN-CODEINE Inactive ACETAMINOPHEN-CODEINE #3 300-30 MG ORAL TABLET 1 tablet po q 4-6 hrs prn pain ACETAMINOPHEN-CODEINE #3 300-30 MG ORAL TABLET ACETAMINOPHEN-CODEINE Inactive HYDROCODONE-ACETAMINOPHEN 5-325 MG ORAL TABLET 1 po q 6hr PRN co ugh HYDROCODONE-ACETAMINOPHEN 5-325 MG ORAL TABLET 567909 HYDROCODONE-ACETAMINOPHEN Inactive AVELOX 400 MG ORAL TABLET 1 tab by mouth daily AVELOX 400 MG ORAL TABLET 821073 MOXIFLOXACIN HCL Inactive CHERATUSSIN AC 100-10 MG/5ML ORAL SYRUP 1 tsp by mouth every 4 hours as needed for cough CHERATUSSIN AC 100-10 MG/5ML ORAL SYRUP 9 46818 GUAIFENESIN-CODEINE Inactive TERBINAFINE HCL 250 MG ORAL TABLET 1 qDay 07/08 TERBINAFINE HCL 250 MG ORAL TABLET 910450 TERBINAFINE HCL Inactive CHERATUSSIN AC 100-10 MG/5ML ORAL SYRUP 1 tsp by mouth every 4 hours as needed for cough CHERATUSSIN AC 100-10 MG/5ML ORAL SYRUP 9 80690 GUAIFENESIN-CODEINE Inactive ACETAMINOPHEN-CODEINE #3 300-30 MG ORAL TABLET 1 PO Q 4-6 HRS ID N PAIN ACETAMINOPHEN-CODEINE #3 300-30 MG ORAL TABLET ACETAMINOPHEN-CODEINE Inactive CHERATUSSIN AC 100-10 MG/5ML ORAL SYRUP 1 tsp by mouth every 4 hours as needed for cough CHERATUSSIN AC 100-10 MG/5ML ORAL SYRUP 9 05508 GUAIFENESIN-CODEINE Inactive AUGMENTIN 875-125 MG ORAL TABLET 1 tab by mouth twice daily with food AUGMENTIN 875-125 MG ORAL TABLET AMOXICIL MADELINE-POT CLAVULANATE Inactive CHERATUSSIN AC 100-10 MG/5ML ORAL SYRUP take one tsp po Q 6h ours prn cough CHERATUSSIN AC 100-10 MG/5ML ORAL SYRUP 679153 GUAIFENESIN-CODEINE Inactive PROPRANOLOL HCL 60 MG ORAL TABLET 1 PO Q D PROPRANOLOL HCL 60 MG ORAL TABLET 906528 PROPRANOLOL HCL Inactive TOPAMAX 50 MG ORAL TABLET take 1 tab po BID for migraines. 07/02 TOPAMAX 50 MG ORAL TABLET 302676 TOPIRAMATE Inacti ve TOPAMAX 25 MG ORAL TABLET 1 qHS x 1 week, then 1 BID x 1 week, then 1 qAM and 2 qHS x 1 week, then 2 BID (migraine prevention) TOPAMAX 25 MG ORAL TABLET 353007 TOPIRAMATE Inactive LYRICA 75 MG ORAL CAPSULE TAKE 1 CAPSULE BY MOUTH TWICE DAILY LYRICA 75 MG ORAL CAPSULE PREGABALIN Inactive SYMBICORT 160-4.5 MCG/ACT INHALATION AEROSOL 2 puffs bid wit h rinse after SYMBICORT 160-4.5 MCG/ACT INHALATION AEROSOL BUDESONIDE- FORMOTEROL FUMARATE Inactive PROMETHAZINE-CODEINE 6.25-10 MG/5ML ORAL SYRUP 1 tsp b y mouth every 8 hours prn cough PROMETHAZINE-CODEINE 6.25-10 MG/ 5ML ORAL SYRUP 908032 PROMETHAZINE-CODEINE Inactive CYMBALTA 30 MG ORAL CAPSULE DELAYED RELEASE PARTICLES 1 cap by mouth daily CYMBALTA 30 MG ORAL CAPSULE DELAYED RELE ASE PARTICLES 707601 DULOXETINE HCL Inactive PREMARIN 0.625 MG ORAL TABLET TAKE 1 TAB BY MOUTH DAILY PREMARIN 0.625 MG ORAL TABLET ESTROGENS CONJUGATED Inactive CHERATUSSIN AC 100-10 MG/5ML ORAL SYRUP 1 tsp by mouth every 4 hours as needed for cough CHERATUSSIN AC 100-10 MG/5ML ORAL SYRUP 9 84554 GUAIFENESIN-CODEINE Inactive PROMETHAZINE-CODEINE 6.25-10 MG/5ML ORAL SYRUP 1 tsp b y mouth every 6 hours if needed for cough PROMETHAZINE-CODEINE 6.25-10 MG/5ML ORAL SYRUP 765157 PROMETHAZINE-CODEINE Inactive CHERATUSSIN AC 100-10 MG/5ML ORAL SYRUP 1 tsp by mouth every 4 hours as needed for cough CHERATUSSIN AC 100-10 MG/5ML ORAL SYRUP 9 93783 GUAIFENESIN-CODEINE Inactive FLUTICASONE PROPIONATE 50 MCG/ACT NASAL SUSPENSION 1 t o 2 sprays each nostril daily FLUTICASONE PROPIONATE 50 MCG/AC T NASAL SUSPENSION 3625069 FLUTICASONE PROPIONATE Inactive PREDNISONE 20 MG ORAL TABLET 3 tab PO qd x 2d, 2 tab P O qd x 2d, 1 tab PO qd x 2d, 1/2 tab PO qd x 2d PREDNISONE 20 MG ORAL TAB LET 604365 PREDNISONE Inactive LEVOFLOXACIN 500 MG ORAL TABLET 1 tab PO daily x 10 days LEVOFLOXACIN 500 MG ORAL TABLET 077693 LEVOFLOXACIN Inactive CYCLOBENZAPRINE HCL 10 MG ORAL TABLET 1 tablet by mouth BID prn had pain CYCLOBENZAPRINE HCL 10 MG ORAL TABLET 827416 CYCLOBENZAPRINE HCL Inactive ZOCOR 40 MG ORAL TABLET 1 tab by mouth daily 4 ZOCOR 40 MG ORAL TABLET 918606 SIMVASTATIN Inactive TUSSIONEX PENNKINETIC ER 10-8 MG/5ML [...] FLUTICASONE PROPIO EFE 50 MCG/ACT NASAL SUSPENSION 4293642 FLUTICASONE PROPIONATE Inactive TUSSIONEX PENNKINETIC ER 10-8 [...] three days PREDNISONE 20 MG ORAL TABLET 355822 PREDNIS ONE Inactive PROAIR HFA 108 (90 BASE) MCG/ACT INHALATION AEROSOL SO LUTION 2 puffs four times a day as needed PROAIR HFA 108 (90 B ASE) MCG/ACT INHALATION AEROSOL SOLUTION ALBUTEROL SULFATE Inactive PREDNISONE 20 MG ORAL TABLET two tabs by mouth today, then one tab by mouth days two and three and four PREDNISONE 20 MG ORAL TAB LET 768712 PREDNISONE Inactive TUSSIONEX PENNKINETIC ER 10-8 MG/5ML [...] bid 04/20 TOPAMAX 100 MG ORAL TABLET 427278 TOPIRAMATE Inactive CYMBALTA 30 MG ORAL CAPSULE DELAYED RELEASE PARTICLES 1 cap by mouth daily for depression CYMBALTA 30 MG ORAL CAPSULE DELAYED RELEASE PARTICLES 121156 DULOXETINE HCL Inactive ZITHROMAX Z-REYNA 250 MG ORAL TABLET 2 today, then 1 daily for 4 d ays ZITHROMAX Z-REYNA 250 MG ORAL TABLET 790309 AZITHROMYCIN Inactive CEFDINIR 300 MG ORAL CAPSULE [...] 20 03/07/07 ZITHROMAX 250 MG ORAL TABLET 219439 AZITHROMYCIN Gre[place] ctive CEFDINIR 300 MG ORAL CAPSULE by mouth twice a day 2011 CEFDINIR 300 MG ORAL CAPSULE 915388 CEFDINIR Inactive PREDNISONE 20 MG ORAL TABLET 2 tabs daily for 3 days, 1 tab daily for 3 days, 1/2 tab daily for 2 days PREDNISONE 20 MG ORAL T ABLET 201568 PREDNISONE Inactive AVELOX 400 MG ORAL TABLET 1 tab by mouth daily AVELOX 400 MG ORAL TABLET 412477 MOXIFLOXACIN HCL Inactive AVELOX 400 MG ORAL TABLET 1 tab by mouth daily AVELOX 400 MG ORAL TABLET 620359 MOXIFLOXACIN HCL Inactive PREDNISONE 20 MG ORAL TABLET Take 3 tabs daily for 3 d ays, 2 tabs daily for 3 days, 1 tab daily for 3 days, 1/2 tab daily for 3 days 11/07 PREDNISONE 20 MG ORAL TABLET 816246 PREDNISONE Inactive LEVAQUIN 500 MG ORAL TABLET take one po QD LEVAQUIN 500 MG ORAL TABLET 517991 LEVOFLOXACIN Inactive AZITHROMYCIN 250 MG ORAL TABLET 2 po qd x 1 day, then 1 po q d x 4 days AZITHROMYCIN 250 MG ORAL TABLET 741045 AZITHROMY GIOVANNI Inactive MEDROL 4 MG ORAL TABLET THERAPY PACK 6 tabs on day 1, 5 tabs on day 2, 4 tabs on day 3, 3 tabs on day 4, 2 tabs on day 5, 1 tab on day 6 2013 MEDROL 4 MG ORAL TABLET THERAPY PACK 247765 METHYLPREDNISOLONE Greer ctive CHERATUSSIN AC 100-10 MG/5ML ORAL SYRUP 5ml po q6hr PRN Cough 20 13/04/14 CHERATUSSIN AC 100-10 MG/5ML ORAL SYRUP 840159 GUAIFENE SIN-CODEINE Inactive TRIAMCINOLONE ACETONIDE 0.1 % EXTERNAL CREAM apply three roger es daily prn rash TRIAMCINOLONE ACETONIDE 0.1 % EXTERNAL CREAM 101 4314 TRIAMCINOLONE ACETONIDE Inactive AZITHROMYCIN 250 MG ORAL TABLET 2 po qd x 1 day, then 1 po q d x 4 days AZITHROMYCIN 250 MG ORAL TABLET 813408 AZITHROMY GIOVANNI Inactive MEDROL 4 MG ORAL TABLET THERAPY PACK 6 pills x 1 day, then 5 pills x 1 day then 4 pills x 1 day, then 3 pills x 1 day, then 2 pills x 1 day, then 1 pill x 1 day, then stop MEDROL 4 MG ORAL TABLET THERAPY PACK [id number] METHYLPREDNISOLONE Inactive AMOXICILLIN 500 MG ORAL CAPSULE 1 tab by mouth 3 times daily x 10 days AMOXICILLIN 500 MG ORAL CAPSULE [id number] AMOXICILL IN Inactive AMOXICILLIN 500 MG ORAL CAPSULE 1 tab by mouth 3 times daily x 10 days AMOXICILLIN 500 MG ORAL CAPSULE 452007 AMOXICILL IN Inactive ZITHROMAX 250 MG ORAL TABLET 2 po today, then 1 po q days 2-5 20 12/08/14 ZITHROMAX 250 MG ORAL TABLET 291710 AZITHROMYCIN Greer ctive AUGMENTIN 875-125 MG ORAL TABLET 1 po BID x 10 days 20 13/01/20 AUGMENTIN 875-125 MG ORAL TABLET AMOXICILLIN-POT CLAVULANATE Inactive ZITHROMAX Z-REYNA 250 MG ORAL TABLET 2 today, then 1 daily for 4 d ays ZITHROMAX Z-REYNA 250 MG ORAL TABLET 105605 AZITHROMYCIN Inactive ZITHROMAX 250 MG ORAL TABLET 2 po today, then 1 po q days 2-5 20 14/03/21 ZITHROMAX 250 MG ORAL TABLET 153233 AZITHROMYCIN Greer ctive ZITHROMAX Z-REYNA 250 MG ORAL TABLET 2 today, then 1 daily for 4 d ays ZITHROMAX Z-REYNA 250 MG ORAL TABLET 314705 AZITHROMYCIN Inactive CEFDINIR 300 MG ORAL CAPSULE 1 po BID x 10 days 06/21 CEFDINIR 300 MG ORAL CAPSULE [id number] CEFDINIR Inactive ZITHROMAX 250 MG ORAL TABLET 2 po today, then 1 po q days 2-5 20 13/08/10 ZITHROMAX 250 MG ORAL TABLET 429478 AZITHROMYCIN Greer ctive LEVAQUIN 500 MG ORAL TABLET 1 tablet by mouth daily 13/09/24 LEVAQUIN 500 MG ORAL TABLET [id number] LEVOFLOXACIN Inactive SINGULAIR 10 MG ORAL TABLET 1 po qday for allergies 14/01/12 SINGULAIR 10 MG ORAL TABLET 20010504 MONTELUKAST SODIUM Inactive AMOXICILLIN 500 MG ORAL CAPSULE 2 po BID x 10 days 201 09/29/08 AMOXICILLIN 500 MG ORAL CAPSULE 855807 AMOXICILLIN Inactive PREDNISONE 20 MG ORAL TABLET 2 tabs daily for 3 days, 1 tab daily for 3 days, 1/2 tab daily for 2 days PREDNISONE 20 MG ORAL T ABLET 830641 PREDNISONE Inactive ZITHROMAX Z-REYNA 250 MG ORAL TABLET 2 today, then 1 daily for 4 d ays ZITHROMAX Z-REYNA 250 MG ORAL TABLET 515262 AZITHROMYCIN Inactive PREDNISONE 20 MG ORAL TABLET 2 tabs daily for 3 days, 1 tab daily for 3 days, 1/2 tab daily for 2 days PREDNISONE 20 MG ORAL T ABLET 287565 PREDNISONE Inactive ZITHROMAX 250 MG ORAL TABLET 2 po today, then 1 po q days 2-5 20 14/09/04 ZITHROMAX 250 MG ORAL TABLET 499878 AZITHROMYCIN Greer ctive AMOXICILLIN 500 MG ORAL CAPSULE 1 cap by mouth three times a day AMOXICILLIN 500 MG ORAL CAPSULE 345165 AMOXICILLIN Inactive TERBINAFINE HCL 250 MG ORAL TABLET 1 qDay for nail fungus 7 TERBINAFINE HCL 250 MG ORAL TABLET 930137 TERBINAFINE HCL Inact nael AUGMENTIN 875-125 MG ORAL TABLET 1 po BID x 10 days 20 16/03/22 AUGMENTIN 875-125 MG ORAL TABLET AMOXICILLIN-POT CLAVULANATE Inactive PREDNISONE 20 MG ORAL TABLET 2 po qd x 5 days PREDNISONE 20 MG ORAL TABLET 211766 PREDNISONE Inactive AZITHROMYCIN 250 MG ORAL TABLET 2 po qd x 1 day, then 1 po q d x 4 days AZITHROMYCIN 250 MG ORAL TABLET 714553 AZITHROMY GIOVANNI Inactive PREDNISONE 50 MG ORAL TABLET Take 50 mg dialy for 6 day s 7 PREDNISONE 50 MG ORAL TABLET 624005 PREDNISONE Inactive AUGMENTIN 875-125 MG ORAL TABLET 1 po BID x 10 days 18/04/16 AUGMENTIN 875-125 MG ORAL TABLET AMOXICILLIN-POT CLAVULANATE Inactive DOXYCYCLINE HYCLATE 100 MG ORAL CAPSULE 1 cap by mouth twice latasha ly DOXYCYCLINE HYCLATE 100 MG ORAL CAPSULE 1032116 DOXYCYCL INE HYCLATE Inactive PREDNISONE 20 MG ORAL TABLET Take 2 tabs day 1 and 2 and 1 t ab days 3 and 4 PREDNISONE 20 MG ORAL TABLET 796119 PREDNISONE Inactive AMOXICILLIN 500 MG ORAL CAPSULE 1 cap by mouth twice daily 10/21 AMOXICILLIN 500 MG ORAL CAPSULE 218006 AMOXICILLIN Inactive Vital Signs Date Name Value [...] - Chem istry sodium, serum 139 mmol/L 287-976 6731/10/12 potassium, serum 3.8 mmol/L 3.5-5.2 chloride, serum [...] negative Encounters Code Encounter Date Provider Facility CPT-14386 Level 3 Est. Patient 16:08:07 CDT David lion [facility] CPT-82537 Level 3 Est. Patient 16:53:54 CDT May haas MD [facility] CPT-90846 [id number] Vst-Est Level IV 08:41:[address] Carlton Hu MD [facility] CPT-59233 Level 3 Est. Patient 09:46:49 PUBLIC INFORMATION RELATIONS MANAGER David lion [facility] CPT-92588 [id number] Vst-Est Level III 11:12:16 CDT Yanet Bess DO [facility] CPT-92671 Level 3 Est. Patient 11:34:49 PUBLIC INFORMATION RELATIONS MANAGER Perez Mora MD [facility] CPT-17524 Level 4 Est. Patient 09:51:32 PUBLIC INFORMATION RELATIONS MANAGER Carlton rich MD [facility] CPT-79909 Level 3 Est. Patient 10:26:00 PUBLIC INFORMATION RELATIONS MANAGER Elise stephenson [facility] CPT-51701 Level 3 Est. Patient 13:35:41 PUBLIC INFORMATION RELATIONS MANAGER Carlton rich MD [facility] CPT-43672 Level 3 Est. Patient 10:03:52 PUBLIC INFORMATION RELATIONS MANAGER Carlton rich MD [facility] CPT-33754 Level 3 Est. Patient 12:17:50 CDT Hugo Restrepo MD [facility]-60478 Level 3 Est. Patient 13:42:38 CDT Elise stephenson [facility] CPT-57152 Level 3 Est. Patient 13:23:51 CDT Diya cobian [facility]-85566 Level 3 Est. Patient 14:22:19 PUBLIC INFORMATION RELATIONS MANAGER Diya cobian [facility] CPT-27876 Level 3 Est. Patient 10:11:46 CDT Carlton rich MD [facility] CPT-88415 Level 3 Est. Patient 17:29:43 CDT Elise Are ll [facility] CPT-34171 Level 3 Est. Patient 11:58:06 CDT Elise Are ll [facility] CPT-32896 Level 4 Est. Patient 14:36:51 CDT Calrton rich MD [facility]-94407 Level 3 Est. Patient 18:16:00 PUBLIC INFORMATION RELATIONS MANAGER Blaine Freeman [facility]-96239 Level 3 Est. Patient 09:45:49 PUBLIC INFORMATION RELATIONS MANAGER Carlton rich MD [facility] CPT-66931 Level 3 Est. Patient 13:19:20 CDT Carlton rich MD [facility] CPT-81031 Level 3 Est. Patient 13:06:43 CDT Ridge tam DO [facility] CPT-70223 Level 3 Est. Patient 10:03:07 CDT Perez Mora MD [facility]-60695 Level 3 Est. Patient 19:50:35 PUBLIC INFORMATION RELATIONS MANAGER Carlton rich MD [facility] CPT-23793 Level 4 Est. Patient 18:05:01 PUBLIC INFORMATION RELATIONS MANAGER Carlton rich MD [facility] CPT-00395 Level 3 Est. Patient 10:45:55 PUBLIC INFORMATION RELATIONS MANAGER Hugo Restrepo MD [facility] CPT-93856 Level 3 Est. Patient 14:12:49 CDT Griffin lincoln [facility]-96533 Level 3 Est. Patient 17:37:24 CDT Carlton rich MD [facility] CPT-09500 Level 3 Est. Patient 16:51:54 CDT Carlton rich MD [facility] CPT-19800 Level 3 Est. Patient 12:18:11 CDT Hugo Restrepo MD [facility] CPT-08549 Level 3 Est. Patient 11:30:25 CDT Marcy crisostomo MD PhD [facility] CPT-39870 Level 3 Est. Patient 12:00:47 PUBLIC INFORMATION RELATIONS MANAGER Carlton rich MD [facility] CPT-65952 Level 3 Est. Patient 16:31:06 PUBLIC INFORMATION RELATIONS MANAGER Carlton rich MD [facility] CPT-78356 Level 3 Est. Patient 16:23:24 PUBLIC INFORMATION RELATIONS MANAGER Ridge tam [facility] CPT-45684 Level 3 Est. Patient 12:34:12 CDT Carlton rich MD [facility] CPT-04887 Level 2 Est. Patient 15:43:33 CDT Robi armstrong MD [facility] CPT-62736 Level 4 Est. Patient 14:04:44 CDT Carlton rich MD [facility] CPT-76797 Level 3 Est. Patient 05:47:59 CDT Ridge tam [facility] CPT-48368 Level 3 Est. Patient 13:12:53 PUBLIC INFORMATION RELATIONS MANAGER Carlton rich MD [facility] CPT-42973 Level 3 Est. Patient 14:26:53 CDT Hugo Restrepo MD [facility] Procedures Code Procedure Name Date Entry Date Standard Desc ription CPT-000 Give Appropriate Flu Vaccine 14:14:31 CDT 2 CPT-J1040 Depo Medrol 80 mg (Methyl Prednisolone A cetate) 10:42:44 CDT CPT-J1100 Decadron 8mg (Dexamethasone) 10:42:44 CDT 2 017/06/05 CPT-J0696 Rocephin 1gm Inj Solr 14:32:13 CDT CPT-J1020 Depo Medrol 60 mg (Methyl Prednisolone A cetate) 14:32:13 CDT CPT-J1100 Decadron 6mg (Dexamethasone) 14:32:13 CDT 2 CPT-38398 Hip bilat min 2V w AP pelvis 13:16:20 CDT 2 CPT-76018 Pelvis only 13:07:33 CDT CPT-83239 Spec Collection and Handling Fee 11:25:12 C DT CPT-20991 Fluzone Quadrivalent Intramuscular Suspe nsion 0.5 ML 14:31:55 CDT CPT-06996 Abx/Therapy Injection 13:28:47 PUBLIC INFORMATION RELATIONS MANAGER CPT-J2930 Solu Medrol 125 mg (Methyl Prednisolone Sodium Succinate) 12:00:47 PUBLIC INFORMATION RELATIONS MANAGER CPT-35138 Venipuncture Draw Fee 11:33:31 CDT CPT-80636 EKG Trac and Interp 11:21:09 CDT CPT-09099 Chest 2V Frontal and Lat 11:21:09 CDT 12/15 CPT-36719 Venipuncture Draw Fee 08:02:34 CDT CPT-38257 Chest 2V Frontal and Lat 05:47:59 CDT 06/05
--- OUTSIDE RECORDS SUMMARY | 2019-10-08 08:56 | XMS REPORT | Clinical Summary ---
Author Author Caitlin, Juliana Martinez Organization [facility] Address Unknown Phone Unavailable Allergies, Adverse Reactions, [...] Mass Index 35.0-35.9, adult BMI 35-35.9 Active Dvaid Lopes APRN Body Mass Index 35.0-35.9, adult [...] Inactive Marcy De La Rosa MD PhD Bronchitis-Acute ICD-466.0 Inactive Hugo dominguez MD URI - acute ICD-465.9 Inactive Hugo Restrepo MD Pharyngitis acute ICD-462 Inactive Hugo gore MD Rhinitis, acute ICD-460 Inactive Hugo Ochoa MD Sinusitis ICD-473.9 Inactive Hugo Restrepo MD Bronchitis ICD-490 Inactive Hugo Restrepo MD 201 10/02/29 URI ICD-465.9 Inactive Ridge Bess DO Pelvic pain, acute ICD-789.09 Inactive Hugo Restrepo MD Sinusitis ICD-473.9 Inactive Hugo Restrepo MD Medication List Medication Instructions Start Date Stop Date Generic Name NDC Status Provider Patient Instruction TRIAMCINOLONE ACETONIDE 0.1 % EXTERNAL OINTMENT Apply to affected areas TID PRN Rash/Itching for up 2 weeks TRIAMCINOLONE ACETON KAYLA [id number] Active David Marianne FAMILY SERVICES MANAGER Active AMOXICILLIN 500 MG ORAL CAPSULE 1 cap by mouth twice daily 10/21 AMOXICILLIN 32548932029 No Longer Active David Marianne FAMILY SERVICES MANAGER Active ELMIRON 100 MG ORAL CAPSULE 2 capsules in the morning and 1 capsule at night PENTOSAN POLYSULFATE SODIUM 43633201435 Active Cinthai H art SHEEP SHEARER Active CYMBALTA 30 MG ORAL CAPSULE DELAYED RELEASE PARTICLES 1 cap by mouth daily for depression DULOXETINE HCL 38108751919 No Longer Active Carlton Hu MD Active CYMBALTA 60 MG ORAL CAPSULE DELAYED RELEASE PARTICLES 1 cap by mouth daily for mood and pain DULOXETINE HCL 57825989864 Active Carlton Hu MD Active TUSSIONEX PENNKINETIC ER 10-8 MG/5ML ORAL SUSPENSION E XTENDED RELEASE 5ml po q12hr PRN Cough HYDROCOD POLST-CHLORPHEN POLST 16059774356 Active David Marianne FAMILY SERVICES MANAGER Active PREDNISONE 20 MG ORAL TABLET Take 2 tabs day 1 and 2 and 1 t ab days 3 and 4 PREDNISONE 35927092271 No Longer Active David Marianne FAMILY SERVICES MANAGER Active DOXYCYCLINE HYCLATE 100 MG ORAL CAPSULE 1 cap by mouth twice latasha ly DOXYCYCLINE HYCLATE 82718637818 No Longer Active David Marianne FAMILY SERVICES MANAGER Active TOPAMAX 100 MG ORAL TABLET Take 1 tablet po bid TOPIRAMATE 26206883923 No Longer Active David Marianne FAMILY SERVICES MANAGER Active TUSSIONEX PENNKINETIC ER 10-8 MG/5ML ORAL SUSPENSION E XTENDED RELEASE 5ml po q12hr PRN Cough HYDROCOD POLST-CHLORPHEN POLST 5 5934884314 No Longer Active David Marianne FAMILY SERVICES MANAGER Active AUGMENTIN 875-125 MG ORAL TABLET 1 po BID x 10 days 18/04/16 AMOXICILLIN-POT CLAVULANATE 67577600371 No Longer Active David Lopes APRN Active PREDNISONE 50 MG ORAL TABLET Take 50 mg dialy for 6 day s 7 PREDNISONE 90514302404 No Longer Active David Marianne FAMILY SERVICES MANAGER Active TUSSIONEX PENNKINETIC ER 10-8 MG/5ML ORAL SUSPENSION E XTENDED RELEASE 5ml po q12hr PRN Cough HYDROCOD POLST-CHLORPHEN POLST 5 4585096596 No Longer Active Cherelle Torres RN Active PREDNISONE 20 MG ORAL TABLET two tabs by mouth today, then one tab by mouth days two and three and four PREDNISONE 43885696646 No Lo nger Active Cherelle Torres RN Active AZITHROMYCIN 250 MG ORAL TABLET 2 po qd x 1 day, then 1 po q d x 4 days AZITHROMYCIN 47740361835 No Longer Active Ridge Bess DO Active PREDNISONE 20 MG ORAL TABLET 2 po qd x 5 days P REDNISONE 70176453926 No Longer Active Perez Mora MD Active PROAIR HFA 108 (90 BASE) MCG/ACT INHALATION AEROSOL SO LUTION 2 puffs four times a day as needed ALBUTEROL SULFATE 71694243863 No Long er Active Becky FUENTES Active ASPIRIN 81 MG ORAL TABLET 1 po qd ASPIRIN 31710125528 Active Carlton Hu MD Active PREDNISONE 20 MG ORAL TABLET 1 tab twice daily for 3 d ay, then one daily for three days PREDNISONE 54734281803 No Longer Active Carlton Hu MD Active AUGMENTIN 875-125 MG ORAL TABLET 1 po BID x 10 days 20 16/03/22 AMOXICILLIN-POT CLAVULANATE 29682216278 No Longer Active Elise Garcia APRN Active TERBINAFINE HCL 250 MG ORAL TABLET 1 qDay for nail fungus 7 TERBINAFINE HCL 76250626652 No Longer Active Carlton Hu MD A ctive AMOXICILLIN 500 MG ORAL CAPSULE 1 cap by mouth three times a day AMOXICILLIN 54564532087 No Longer Active Carlton Hu MD Active ELMIRON 100 MG ORAL CAPSULE 2 tablets in the am and 1 tablet at hs PENTOSAN POLYSULFATE SODIUM 46643613325 No Longer Active Robert jade Hu MD Active MUCINEX D 60-600 MG ORAL TABLET EXTENDED RELEASE 12 HOUR 1 t ab po q am PSEUDOEPHEDRINE-GUAIFENESIN 84738622968 No Longer Act nael Carlton Hu MD Active MUCINEX DM MAXIMUM STRENGTH 60-1200 MG ORAL TABLET EXT ENDED RELEASE 12 HOUR 1 tab po q am DEXTROMETHORPHAN-GUAIFENESIN 96076317881 No Longer Active Carlton Hu MD Active TUSSIONEX PENNKINETIC ER 10-8 MG/5ML ORAL SUSPENSION E XTENDED RELEASE 5ml po q12hr PRN Cough HYDROCOD POLST-CHLORPHEN POLST 5 1796289244 No Longer Active Carlton Hu MD Active POTASSIUM CHLORIDE ER 20 MEQ ORAL TABLET EXTENDED RELE ASE Take 1 by mouth 4 times daily for 7 days POTASSIUM CHLORIDE 94145759005 No Longer Active Carlton Hu MD Active ZITHROMAX 250 MG ORAL TABLET 2 po today, then 1 po q days 2-5 14/09/04 AZITHROMYCIN 66851532396 No Longer Active Elise Garcia APRN Active TUSSIONEX PENNKINETIC ER 10-8 MG/5ML ORAL SUSPENSION E XTENDED RELEASE 5 ml twice a day as needed for cough HYDROCOD POLST-CHLORPH EN POLST 85112450246 No Longer Active Elise Garcia APRN Active MONTELUKAST SODIUM 10 MG ORAL TABLET 1 po daily for Allergy MONTELUKAST SODIUM 81915547208 Active Carlton Hu MD Ac tive TUSSIONEX PENNKINETIC ER 10-8 MG/5ML ORAL SUSPENSION E XTENDED RELEASE 5ml po q12hr PRN Cough HYDROCOD POLST-CHLORPHEN POLST 5 5510713488 No Longer Active Hugo Restrepo MD Active GABAPENTIN 100 MG ORAL CAPSULE 1 po BID for fibromyalgia GABAPENTIN 05727125938 Active ALFREDO Holly Active LYRICA 100 MG ORAL CAPSULE Take 1 tab po BID for fibromyalgia 20 11/08/21 PREGABALIN 01847686148 No Longer Active Elise Garcia APRN A ctive PREDNISONE 20 MG ORAL TABLET 2 tabs daily for 3 days, 1 tab daily for 3 days, 1/2 tab daily for 2 days PREDNISONE 92291668704 No Longer Active Jillina Frazell FAMILY SERVICES MANAGER Active TUSSIONEX PENNKINETIC ER 10-8 MG/5ML ORAL SUSPENSION E XTENDED RELEASE 5 mL PO q 12 hrs PRN cough HYDROCOD POLST-CHLORPHEN POLST 091449 09532 No Longer Active Jillina Frazell FAMILY SERVICES MANAGER Active FLUTICASONE PROPIONATE 50 MCG/ACT NASAL SUSPENSION 2 s prays each nostril daily until bottle is empty FLUTICASONE PROPIONATE 145232605 99 No Longer Active Jillina Frazell FAMILY SERVICES MANAGER Active ASMANEX 60 METERED DOSES 220 MCG/INH INHALATION AEROSO L POWDER BREATH ACTIVATED 1 puff bid with rinse after MOMETASONE FUROATE 4103537 4102 No Longer Active Jillina Frazell FAMILY SERVICES MANAGER Active ZITHROMAX Z-REYNA 250 MG ORAL TABLET 2 today, then 1 daily for 4 d ays AZITHROMYCIN 59572144869 No Longer Active Elise Garcia FAMILY SERVICES MANAGER Active TUSSIONEX PENNKINETIC ER 10-8 MG/5ML ORAL SUSPENSION E XTENDED RELEASE 5ml po q12hr PRN Cough HYDROCOD POLST-CHLORPHEN POLST 5 5696281088 No Longer Active Elise Garcia FAMILY SERVICES MANAGER Active PREDNISONE 20 MG ORAL TABLET 2 tabs daily for 3 days, 1 tab daily for 3 days, 1/2 tab daily for 2 days PREDNISONE 19723053036 No Longer Active Jillina Frazell FAMILY SERVICES MANAGER Active AMOXICILLIN 500 MG ORAL CAPSULE 2 po BID x 10 days 201 09/29/08 AMOXICILLIN 30975106685 No Longer Active Diya De Guzman FAMILY SERVICES MANAGER Act nael SINGULAIR 10 MG ORAL TABLET 1 po qday for allergies 14/01/12 MONTELUKAST SODIUM 60565977899 No Longer Active Carlton Hu MD Active LEVAQUIN 500 MG ORAL TABLET 1 tablet by mouth daily 13/09/24 LEVOFLOXACIN 52771961227 No Longer Active Carlton Hu MD Acti ve FLUTICASONE PROPIONATE 50 MCG/ACT NASAL SUSPENSION 2 s prays each nostril daily for 2 weeks, then 1 spray each nostril daily. FLUTICASONE PROPIONATE 92218069596 Active Carlton Hu MD Active ZITHROMAX 250 MG ORAL TABLET 2 po today, then 1 po q days 2-5 20 13/08/10 AZITHROMYCIN 71500725192 No Longer Active Elise Garcia FAMILY SERVICES MANAGER Active XANAX 0.5 MG ORAL TABLET one tablet by mouth daily prn anxiety 2015 ALPRAZOLAM 73787824016 Active ALFREDO Holly Active CEFDINIR 300 MG ORAL CAPSULE 1 po BID x 10 days CEFDINIR 50192605335 No Longer Active Carlton Hu MD Active ZOCOR 40 MG ORAL TABLET 1 tab by mouth daily SI MVASTATIN 09041842223 No Longer Active Carlton Hu MD Active CYCLOBENZAPRINE HCL 10 MG ORAL TABLET 1 tablet by mouth BID prn had pain CYCLOBENZAPRINE HCL 01011208584 No Longer Active Jayden Hu MD Active LEVOFLOXACIN 500 MG ORAL TABLET 1 tab PO daily x 10 days LEVOFLOXACIN 11204669228 No Longer Active Carlton Hu MD Acti ve PREDNISONE 20 MG ORAL TABLET 3 tab PO qd x 2d, 2 tab P O qd x 2d, 1 tab PO qd x 2d, 1/2 tab PO qd x 2d PREDNISONE 53452939793 No Lo nger Active Carlton Hu MD Active FLUTICASONE PROPIONATE 50 MCG/ACT NASAL SUSPENSION 1 t o 2 sprays each nostril daily FLUTICASONE PROPIONATE 49260800640 No Longer Ac tive Blaine HERNANDEZ Active CHERATUSSIN AC 100-10 MG/5ML ORAL SYRUP 1 tsp by mouth every 4 hours as needed for cough GUAIFENESIN-CODEINE 57840424388 No Longe r Active Blaine HERNANDEZ Active PROMETHAZINE-CODEINE 6.25-10 MG/5ML ORAL SYRUP 1 tsp b y mouth every 6 hours if needed for cough PROMETHAZINE-CODEINE 93431336591 No Longer Active Blaine HERNANDEZ Active CHERATUSSIN AC 100-10 MG/5ML ORAL SYRUP 1 tsp by mouth every 4 hours as needed for cough GUAIFENESIN-CODEINE 30394225881 No Longe r Active Blaine HERNANDEZ Active ZITHROMAX Z-REYNA 250 MG ORAL TABLET 2 today, then 1 daily for 4 d ays AZITHROMYCIN 48375391663 No Longer Active Columba Raida Act nael ZITHROMAX 250 MG ORAL TABLET 2 po today, then 1 po q days 2-5 20 14/03/21 AZITHROMYCIN 91641048724 No Longer Active Carlton Hu MD Active ZITHROMAX Z-REYNA 250 MG ORAL TABLET 2 today, then 1 daily for 4 d ays AZITHROMYCIN 80223192110 No Longer Active Columba Raida Act nael AUGMENTIN 875-125 MG ORAL TABLET 1 po BID x 10 days 13/01/20 AMOXICILLIN-POT CLAVULANATE 79402206942 No Longer Active Diya De Guzman APRN Active ZITHROMAX 250 MG ORAL TABLET 2 po today, then 1 po q days 2-5 20 12/08/14 AZITHROMYCIN 85003753671 No Longer Active Carlton Hu MD Active TRAMADOL HCL 50 MG ORAL TABLET 1 po tid with ES Tylenol TRAMADOL HCL 21228303088 Active Carlton Hu MD Active PREMARIN 0.625 MG ORAL TABLET TAKE 1 TAB BY MOUTH DAILY ESTROGENS CONJUGATED 33991928841 No Longer Active Ridge Bess DO A ctive CYMBALTA 30 MG ORAL CAPSULE DELAYED RELEASE PARTICLES 1 cap by mouth daily DULOXETINE HCL 73899283153 No Longer Active Ridge Ya ee DO Active AMOXICILLIN 500 MG ORAL CAPSULE 1 tab by mouth 3 times daily x 10 days AMOXICILLIN 91044039780 No Longer Active Carlton bustamante MD Active AMOXICILLIN 500 MG ORAL CAPSULE 1 tab by mouth 3 times daily x 10 days AMOXICILLIN 84174215888 No Longer Active Carlton bustamante MD Active PROMETHAZINE-CODEINE 6.25-10 MG/5ML ORAL SYRUP 1 tsp b y mouth every 8 hours prn cough PROMETHAZINE-CODEINE 28733193952 No Longer Acti ve Carlton Hu MD Active MEDROL 4 MG ORAL TABLET THERAPY PACK 6 pills x 1 day, then 5 pills x 1 day then 4 pills x 1 day, then 3 pills x 1 day, then 2 pills x 1 day, then 1 pill x 1 day, then stop METHYLPREDNISOLONE 57258768202 No Long er Active Perez Mora MD Active AZITHROMYCIN 250 MG ORAL TABLET 2 po qd x 1 day, then 1 po q d x 4 days AZITHROMYCIN 92958952847 No Longer Active Perez Ambriz MD Active SYMBICORT 160-4.5 MCG/ACT INHALATION AEROSOL 2 puffs bid wit h rinse after BUDESONIDE-FORMOTEROL FUMARATE 18789059558 N o Longer Active Perez Mora MD Active LYRICA 75 MG ORAL CAPSULE TAKE 1 CAPSULE BY MOUTH TWICE DAILY PREGABALIN 58640314284 No Longer Active Carlton Hu MD Acti ve TOPAMAX 25 MG ORAL TABLET 1 qHS x 1 week, then 1 BID x 1 week, then 1 qAM and 2 qHS x 1 week, then 2 BID (migraine prevention) T OPIRAMATE 52315255527 No Longer Active Jerica Goeringer RMA Active TOPAMAX 50 MG ORAL TABLET take 1 tab po BID for migraines. 07/02 TOPIRAMATE 69583317386 No Longer Active Jerica FUENTES Active TRIAMCINOLONE ACETONIDE 0.1 % EXTERNAL CREAM apply three roger es daily prn rash TRIAMCINOLONE ACETONIDE 60124594553 No Longer Active Carlton Hu MD Active PAXIL 40 MG ORAL TABLET take 1 tab po qday for depression 0 PAROXETINE HCL 09017225232 Active Carlton Hu MD Active CHERATUSSIN AC 100-10 MG/5ML ORAL SYRUP 5ml po q6hr PRN Cough 20 13/04/14 GUAIFENESIN-CODEINE 25461959244 No Longer Active Carlton Hu MD Active MEDROL 4 MG ORAL TABLET THERAPY PACK 6 tabs on day 1, 5 tabs on day 2, 4 tabs on day 3, 3 tabs on day 4, 2 tabs on day 5, 1 tab on day 6 2013 METHYLPREDNISOLONE 74697361165 No Longer Active Perez Mora MD Active AZITHROMYCIN 250 MG ORAL TABLET 2 po qd x 1 day, then 1 po q d x 4 days AZITHROMYCIN 15869618124 No Longer Active Perez Ambriz MD Active PROPRANOLOL HCL 60 MG ORAL TABLET 1 PO Q D PROPRANOLOL HCL 91325510193 No Longer Active Perez Mora MD Activ e CHERATUSSIN AC 100-10 MG/5ML ORAL SYRUP take one tsp po Q 6h ours prn cough GUAIFENESIN-CODEINE 06602190503 No Longer Active Zia Mora MD Active AUGMENTIN 875-125 MG ORAL TABLET 1 tab by mouth twice daily with food AMOXICILLIN-POT CLAVULANATE 40517904470 No Longer Act nael Perez Mora MD Active CHERATUSSIN AC 100-10 MG/5ML ORAL SYRUP 1 tsp by mouth every 4 hours as needed for cough GUAIFENESIN-CODEINE 67446729200 No Longe r Active Hugo Restrepo MD Active ACETAMINOPHEN-CODEINE #3 300-30 MG ORAL TABLET 1 PO Q 4-6 HRS AR N PAIN ACETAMINOPHEN-CODEINE 31056141538 No Longer Active Hugo Restrepo MD Active LEVAQUIN 500 MG ORAL TABLET take one po QD LEVO FLOXACIN 92042511795 No Longer Active Griffin HERNANDEZ Active PREDNISONE 20 MG ORAL TABLET Take 3 tabs daily for 3 d ays, 2 tabs daily for 3 days, 1 tab daily for 3 days, 1/2 tab daily for 3 days 11/07 PREDNISONE 25112245607 No Longer Active Carlton Hu MD Acti ve AVELOX 400 MG ORAL TABLET 1 tab by mouth daily MOXIFLOXACIN HCL 48967013059 No Longer Active Carlton Hu MD Active CHERATUSSIN AC 100-10 MG/5ML ORAL SYRUP 1 tsp by mouth every 4 hours as needed for cough GUAIFENESIN-CODEINE 04283834384 No Longe r Active Hugo Restrepo MD Active AVELOX 400 MG ORAL TABLET 1 tab by mouth daily MOXIFLOXACIN HCL 60197624184 No Longer Active Mracy De La Rosa MD PhD Active TERBINAFINE HCL 250 MG ORAL TABLET 1 qDay T ERBINAFINE HCL 58067783626 No Longer Active Marcy De La Rosa MD PhD Active CHERATUSSIN AC 100-10 MG/5ML ORAL SYRUP 1 tsp by mouth every 4 hours as needed for cough GUAIFENESIN-CODEINE 40301972369 No Longe r Active Marcy De La Rosa MD PhD Active AVELOX 400 MG ORAL TABLET 1 tab by mouth daily MOXIFLOXACIN HCL 93283520664 No Longer Active Marcy De La Rosa MD PhD Active HYDROCODONE-ACETAMINOPHEN 5-325 MG ORAL TABLET 1 po q 6hr PRN co ugh HYDROCODONE-ACETAMINOPHEN 48331602936 No Longer Active Marcy De La Rosa MD PhD Active PREDNISONE 20 MG ORAL TABLET 2 tabs daily for 3 days, 1 tab daily for 3 days, 1/2 tab daily for 2 days PREDNISONE 71378123030 No Longer Active Carlton Hu MD Active CEFDINIR 300 MG ORAL CAPSULE by mouth twice a day 2011 CEFDINIR 12770692249 No Longer Active Carlton Hu MD Acti ve HYDROCHLOROTHIAZIDE 25 MG ORAL TABLET 1 TAB PO DAILY HYDROCHLOROTHIAZIDE 55717719055 Active Carlton Hu MD A ctive ACETAMINOPHEN-CODEINE #3 300-30 MG ORAL TABLET 1 tablet po q 4-6 hrs prn pain ACETAMINOPHEN-CODEINE 76092480135 No Longer Active Ridge Bess DO Active ZITHROMAX 250 MG ORAL TABLET 2 po today, then 1 po q days 2-5 20 03/07/07 AZITHROMYCIN 84232127073 No Longer Active Carlton Hu MD Active CHERATUSSIN AC 100-10 MG/5ML ORAL SYRUP take 1 tsp po q4-6 h ours prn cough GUAIFENESIN-CODEINE 95815935066 No Longer Active Jayden Hu MD Active ACETAMINOPHEN-CODEINE #3 300-30 MG ORAL TABLET 1 PO Q 4-6 HR PRN PAIN ACETAMINOPHEN-CODEINE 43881479742 No Longer Active Da raimundo Hu MD Active LORTAB 7.5-500 MG/15ML ORAL ELIXIR 7.5 ml po q 4 hour prn cough HYDROCODONE-ACETAMINOPHEN 27637008478 No Longer Active Carlton Hu MD Active PREDNISONE 20 MG ORAL TABLET 1 po bid 3 days, then 1 po q day 3 days PREDNISONE 62654935454 No Longer Active Carlton Hu MD Active CEFDINIR 300 MG ORAL CAPSULE by mouth twice a day 2011 CEFDINIR 68427549361 No Longer Active Carlton Hu MD Acti ve CEFDINIR 300 MG ORAL CAPSULE by mouth twice a day 2010 CEFDINIR 65223607503 No Longer Active Carlton Hu MD Acti ve CEFDINIR 300 MG ORAL CAPSULE by mouth twice a day 2010 CEFDINIR 37416799996 No Longer Active Carlton Hu MD Acti ve TESSALON PERLES 100 MG ORAL CAPSULE 1 tablet by mouth 3 times daily as needed for cough BENZONATATE 70168756147 No Longer Active Carlton Hu MD Active CEFDINIR 300 MG ORAL CAPSULE by mouth twice a day 2010 CEFDINIR 80602340471 No Longer Active Carlton Hu MD Acti ve ZITHROMAX Z-REYNA 250 MG ORAL TABLET 2 today, then 1 daily for 4 d ays AZITHROMYCIN 89287707826 No Longer Active Hugo Restrepo MD Active TESSALON PERLES 100 MG ORAL CAPSULE 1 tablet by mouth 3 times daily as needed for cough TESSALON PERLES 100 MG ORAL CAPSULE 52752 7 BENZONATATE Inactive PREDNISONE 20 MG ORAL TABLET 1 po bid 3 days, then 1 po q day 3 days PREDNISONE 20 MG ORAL TABLET 698639 PREDNISONE Greer ctive LORTAB 7.5-500 MG/15ML ORAL [...] cough CHERATUSSIN AC 100-10 MG/5ML ORAL SYRUP 162938 GUAIFENESIN-CODEINE Inactive ACETAMINOPHEN-CODEINE #3 300-30 MG ORAL TABLET 1 tablet po q 4-6 hrs prn pain ACETAMINOPHEN-CODEINE #3 300-30 MG ORAL TABLET ACETAMINOPHEN-CODEINE Inactive HYDROCODONE-ACETAMINOPHEN 5-325 MG ORAL TABLET 1 po q 6hr PRN co ugh HYDROCODONE-ACETAMINOPHEN 5-325 MG ORAL TABLET 822551 HYDROCODONE-ACETAMINOPHEN Inactive AVELOX 400 MG ORAL TABLET 1 tab by mouth daily AVELOX 400 MG ORAL TABLET 240632 MOXIFLOXACIN HCL Inactive CHERATUSSIN AC 100-10 MG/5ML ORAL SYRUP 1 tsp by mouth every 4 hours as needed for cough CHERATUSSIN AC 100-10 MG/5ML ORAL SYRUP 9 11857 GUAIFENESIN-CODEINE Inactive TERBINAFINE HCL 250 MG ORAL TABLET 1 qDay 07/08 TERBINAFINE HCL 250 MG ORAL TABLET 775181 TERBINAFINE HCL Inactive CHERATUSSIN AC 100-10 MG/5ML ORAL SYRUP 1 tsp by mouth every 4 hours as needed for cough CHERATUSSIN AC 100-10 MG/5ML ORAL SYRUP 9 75643 GUAIFENESIN-CODEINE Inactive ACETAMINOPHEN-CODEINE #3 300-30 MG ORAL TABLET 1 PO Q 4-6 HRS AR N PAIN ACETAMINOPHEN-CODEINE #3 300-30 MG ORAL TABLET ACETAMINOPHEN-CODEINE Inactive CHERATUSSIN AC 100-10 MG/5ML ORAL SYRUP 1 tsp by mouth every 4 hours as needed for cough CHERATUSSIN AC 100-10 MG/5ML ORAL SYRUP 9 49167 GUAIFENESIN-CODEINE Inactive AUGMENTIN 875-125 MG ORAL TABLET 1 tab by mouth twice daily with food AUGMENTIN 875-125 MG ORAL TABLET AMOXICIL MADELINE-POT CLAVULANATE Inactive CHERATUSSIN AC 100-10 MG/5ML ORAL SYRUP take one tsp po Q 6h ours prn cough CHERATUSSIN AC 100-10 MG/5ML ORAL SYRUP 171474 GUAIFENESIN-CODEINE Inactive PROPRANOLOL HCL 60 MG ORAL TABLET 1 PO Q D PROPRANOLOL HCL 60 MG ORAL TABLET 992399 PROPRANOLOL HCL Inactive TOPAMAX 50 MG ORAL TABLET take 1 tab po BID for migraines. 07/02 TOPAMAX 50 MG ORAL TABLET 234647 TOPIRAMATE Inacti ve TOPAMAX 25 MG ORAL TABLET 1 qHS x 1 week, then 1 BID x 1 week, then 1 qAM and 2 qHS x 1 week, then 2 BID (migraine prevention) TOPAMAX 25 MG ORAL TABLET 384079 TOPIRAMATE Inactive LYRICA 75 MG ORAL CAPSULE TAKE 1 CAPSULE BY MOUTH TWICE DAILY LYRICA 75 MG ORAL CAPSULE PREGABALIN Inactive SYMBICORT 160-4.5 MCG/ACT INHALATION AEROSOL 2 puffs bid wit h rinse after SYMBICORT 160-4.5 MCG/ACT INHALATION AEROSOL BUDESONIDE- FORMOTEROL FUMARATE Inactive PROMETHAZINE-CODEINE 6.25-10 MG/5ML ORAL SYRUP 1 tsp b y mouth every 8 hours prn cough PROMETHAZINE-CODEINE 6.25-10 MG/ 5ML ORAL SYRUP 126341 PROMETHAZINE-CODEINE Inactive CYMBALTA 30 MG ORAL CAPSULE DELAYED RELEASE PARTICLES 1 cap by mouth daily CYMBALTA 30 MG ORAL CAPSULE DELAYED RELE ASE PARTICLES 384445 DULOXETINE HCL Inactive PREMARIN 0.625 MG ORAL TABLET TAKE 1 TAB BY MOUTH DAILY PREMARIN 0.625 MG ORAL TABLET ESTROGENS CONJUGATED Inactive CHERATUSSIN AC 100-10 MG/5ML ORAL SYRUP 1 tsp by mouth every 4 hours as needed for cough CHERATUSSIN AC 100-10 MG/5ML ORAL SYRUP 9 67481 GUAIFENESIN-CODEINE Inactive PROMETHAZINE-CODEINE 6.25-10 MG/5ML ORAL SYRUP 1 tsp b y mouth every 6 hours if needed for cough PROMETHAZINE-CODEINE 6.25-10 MG/5ML ORAL SYRUP 356210 PROMETHAZINE-CODEINE Inactive CHERATUSSIN AC 100-10 MG/5ML ORAL SYRUP 1 tsp by mouth every 4 hours as needed for cough CHERATUSSIN AC 100-10 MG/5ML ORAL SYRUP 9 40069 GUAIFENESIN-CODEINE Inactive FLUTICASONE PROPIONATE 50 MCG/ACT NASAL SUSPENSION 1 t o 2 sprays each nostril daily FLUTICASONE PROPIONATE 50 MCG/AC T NASAL SUSPENSION 9838721 FLUTICASONE PROPIONATE Inactive PREDNISONE 20 MG ORAL TABLET 3 tab PO qd x 2d, 2 tab P O qd x 2d, 1 tab PO qd x 2d, 1/2 tab PO qd x 2d PREDNISONE 20 MG ORAL TAB LET 846276 PREDNISONE Inactive LEVOFLOXACIN 500 MG ORAL TABLET 1 tab PO daily x 10 days LEVOFLOXACIN 500 MG ORAL TABLET 599171 LEVOFLOXACIN Inactive CYCLOBENZAPRINE HCL 10 MG ORAL TABLET 1 tablet by mouth BID prn had pain CYCLOBENZAPRINE HCL 10 MG ORAL TABLET 272944 CYCLOBENZAPRINE HCL Inactive ZOCOR 40 MG ORAL TABLET 1 tab by mouth daily 4 ZOCOR 40 MG ORAL TABLET 532130 SIMVASTATIN Inactive TUSSIONEX PENNKINETIC ER 10-8 MG/5ML [...] FLUTICASONE PROPIO EFE 50 MCG/ACT NASAL SUSPENSION 9138541 FLUTICASONE PROPIONATE Inactive TUSSIONEX PENNKINETIC ER 10-8 [...] three days PREDNISONE 20 MG ORAL TABLET 536227 PREDNIS ONE Inactive PROAIR HFA 108 (90 BASE) MCG/ACT INHALATION AEROSOL SO LUTION 2 puffs four times a day as needed PROAIR HFA 108 (90 B ASE) MCG/ACT INHALATION AEROSOL SOLUTION ALBUTEROL SULFATE Inactive PREDNISONE 20 MG ORAL TABLET two tabs by mouth today, then one tab by mouth days two and three and four PREDNISONE 20 MG ORAL TAB LET 640728 PREDNISONE Inactive TUSSIONEX PENNKINETIC ER 10-8 MG/5ML [...] bid 04/20 TOPAMAX 100 MG ORAL TABLET 875011 TOPIRAMATE Inactive CYMBALTA 30 MG ORAL CAPSULE DELAYED RELEASE PARTICLES 1 cap by mouth daily for depression CYMBALTA 30 MG ORAL CAPSULE DELAYED RELEASE PARTICLES 593825 DULOXETINE HCL Inactive ZITHROMAX Z-REYNA 250 MG ORAL TABLET 2 today, then 1 daily for 4 d ays ZITHROMAX Z-REYNA 250 MG ORAL TABLET 017409 AZITHROMYCIN Inactive CEFDINIR 300 MG ORAL CAPSULE [...] day 2011 CEFDINIR 300 MG ORAL CAPSULE 824582 CEFDINIR Inactive ZITHROMAX 250 MG ORAL TABLET 2 po today, then 1 po q days 2-5 20 03/07/07 ZITHROMAX 250 MG ORAL TABLET 182039 AZITHROMYCIN [place] ctive CEFDINIR 300 MG ORAL CAPSULE by mouth twice a day 2011 CEFDINIR 300 MG ORAL CAPSULE 951143 CEFDINIR Inactive PREDNISONE 20 MG ORAL TABLET 2 tabs daily for 3 days, 1 tab daily for 3 days, 1/2 tab daily for 2 days PREDNISONE 20 MG ORAL T ABLET 856027 PREDNISONE Inactive AVELOX 400 MG ORAL TABLET 1 tab by mouth daily AVELOX 400 MG ORAL TABLET 450129 MOXIFLOXACIN HCL Inactive AVELOX 400 MG ORAL TABLET 1 tab by mouth daily AVELOX 400 MG ORAL TABLET 274756 MOXIFLOXACIN HCL Inactive PREDNISONE 20 MG ORAL TABLET Take 3 tabs daily for 3 d ays, 2 tabs daily for 3 days, 1 tab daily for 3 days, 1/2 tab daily for 3 days 11/07 PREDNISONE 20 MG ORAL TABLET 979137 PREDNISONE Inactive LEVAQUIN 500 MG ORAL TABLET take one po QD LEVAQUIN 500 MG ORAL TABLET 160680 LEVOFLOXACIN Inactive AZITHROMYCIN 250 MG ORAL TABLET 2 po qd x 1 day, then 1 po q d x 4 days AZITHROMYCIN 250 MG ORAL TABLET 906968 AZITHROMY GIOVANNI Inactive MEDROL 4 MG ORAL TABLET THERAPY PACK 6 tabs on day 1, 5 tabs on day 2, 4 tabs on day 3, 3 tabs on day 4, 2 tabs on day 5, 1 tab on day 6 2013 MEDROL 4 MG ORAL TABLET THERAPY PACK 235499 METHYLPREDNISOLONE Greer ctive CHERATUSSIN AC 100-10 MG/5ML ORAL SYRUP 5ml po q6hr PRN Cough 20 13/04/14 CHERATUSSIN AC 100-10 MG/5ML ORAL SYRUP 160918 GUAIFENE SIN-CODEINE Inactive TRIAMCINOLONE ACETONIDE 0.1 % EXTERNAL CREAM apply three roger es daily prn rash TRIAMCINOLONE ACETONIDE 0.1 % EXTERNAL CREAM 101 4314 TRIAMCINOLONE ACETONIDE Inactive AZITHROMYCIN 250 MG ORAL TABLET 2 po qd x 1 day, then 1 po q d x 4 days AZITHROMYCIN 250 MG ORAL TABLET [id number] AZITHROMY GIOVANNI Inactive MEDROL 4 MG ORAL TABLET THERAPY PACK 6 pills x 1 day, then 5 pills x 1 day then 4 pills x 1 day, then 3 pills x 1 day, then 2 pills x 1 day, then 1 pill x 1 day, then stop MEDROL 4 MG ORAL TABLET THERAPY PACK [id number] METHYLPREDNISOLONE Inactive AMOXICILLIN 500 MG ORAL CAPSULE 1 tab by mouth 3 times daily x 10 days AMOXICILLIN 500 MG ORAL CAPSULE 166814 AMOXICILL IN Inactive AMOXICILLIN 500 MG ORAL CAPSULE 1 tab by mouth 3 times daily x 10 days AMOXICILLIN 500 MG ORAL CAPSULE 251576 AMOXICILL IN Inactive ZITHROMAX 250 MG ORAL TABLET 2 po today, then 1 po q days 2-5 20 12/08/14 ZITHROMAX 250 MG ORAL TABLET 760310 AZITHROMYCIN [place] [facility] AUGMENTIN 875-125 MG ORAL TABLET 1 po BID x 10 days 20 13/01/20 AUGMENTIN 875-125 MG ORAL TABLET AMOXICILLIN-POT CLAVULANATE Inactive ZITHROMAX Z-REYNA 250 MG ORAL TABLET 2 today, then 1 daily for 4 d ays ZITHROMAX Z-REYNA 250 MG ORAL TABLET 876597 AZITHROMYCIN Inactive ZITHROMAX 250 MG ORAL TABLET 2 po today, then 1 po q days 2-5 20 14/03/21 ZITHROMAX 250 MG ORAL TABLET 175163 AZITHROMYCIN [place] [facility] ZITHROMAX Z-REYNA 250 MG ORAL TABLET 2 today, then 1 daily for 4 d ays ZITHROMAX Z-REYNA 250 MG ORAL TABLET 832311 AZITHROMYCIN Inactive CEFDINIR 300 MG ORAL CAPSULE 1 po BID x 10 days 06/21 CEFDINIR 300 MG ORAL CAPSULE 20020704 CEFDINIR Inactive ZITHROMAX 250 MG ORAL TABLET 2 po today, then 1 po q days 2-5 20 13/08/10 ZITHROMAX 250 MG ORAL TABLET 197495 AZITHROMYCIN [place] [facility] LEVAQUIN 500 MG ORAL TABLET 1 tablet by mouth daily 13/09/24 LEVAQUIN 500 MG ORAL TABLET 19971102 LEVOFLOXACIN Inactive SINGULAIR 10 MG ORAL TABLET 1 po qday for allergies 14/01/12 SINGULAIR 10 MG ORAL TABLET 20010504 MONTELUKAST SODIUM Inactive AMOXICILLIN 500 MG ORAL CAPSULE 2 po BID x 10 days 201 09/29/08 AMOXICILLIN 500 MG ORAL CAPSULE 236126 AMOXICILLIN Inactive PREDNISONE 20 MG ORAL TABLET 2 tabs daily for 3 days, 1 tab daily for 3 days, 1/2 tab daily for 2 days PREDNISONE 20 MG ORAL T ABLET 955922 PREDNISONE Inactive ZITHROMAX Z-REYNA 250 MG ORAL TABLET 2 today, then 1 daily for 4 d ays ZITHROMAX Z-REYNA 250 MG ORAL TABLET 049350 AZITHROMYCIN Inactive PREDNISONE 20 MG ORAL TABLET 2 tabs daily for 3 days, 1 tab daily for 3 days, 1/2 tab daily for 2 days PREDNISONE 20 MG ORAL T ABLET 833273 PREDNISONE Inactive ZITHROMAX 250 MG ORAL TABLET 2 po today, then 1 po q days 2-5 20 14/09/04 ZITHROMAX 250 MG ORAL TABLET 037505 AZITHROMYCIN [place] [facility] AMOXICILLIN 500 MG ORAL CAPSULE 1 cap by mouth three times a day AMOXICILLIN 500 MG ORAL CAPSULE 879537 AMOXICILLIN Inactive TERBINAFINE HCL 250 MG ORAL TABLET 1 qDay for nail fungus 7 TERBINAFINE HCL 250 MG ORAL TABLET 394495 TERBINAFINE HCL Inact nael AUGMENTIN 875-125 MG ORAL TABLET 1 po BID x 10 days 20 16/03/22 AUGMENTIN 875-125 MG ORAL TABLET AMOXICILLIN-POT CLAVULANATE Inactive PREDNISONE 20 MG ORAL TABLET 2 po qd x 5 days PREDNISONE 20 MG ORAL TABLET 078111 PREDNISONE Inactive AZITHROMYCIN 250 MG ORAL TABLET 2 po qd x 1 day, then 1 po q d x 4 days AZITHROMYCIN 250 MG ORAL TABLET 625713 AZITHROMY GIOVANNI Inactive PREDNISONE 50 MG ORAL TABLET Take 50 mg dialy for 6 day s 7 PREDNISONE 50 MG ORAL TABLET 339365 PREDNISONE Inactive AUGMENTIN 875-125 MG ORAL TABLET 1 po BID x 10 days 18/04/16 AUGMENTIN 875-125 MG ORAL TABLET AMOXICILLIN-POT CLAVULANATE Inactive DOXYCYCLINE HYCLATE 100 MG ORAL CAPSULE 1 cap by mouth twice latasha ly DOXYCYCLINE HYCLATE 100 MG ORAL CAPSULE 9777149 DOXYCYCL INE HYCLATE Inactive PREDNISONE 20 MG ORAL TABLET Take 2 tabs day 1 and 2 and 1 t ab days 3 and 4 PREDNISONE 20 MG ORAL TABLET 092705 PREDNISONE Inactive AMOXICILLIN 500 MG ORAL CAPSULE 1 cap by mouth twice daily 10/21 AMOXICILLIN 500 MG ORAL CAPSULE 490460 AMOXICILLIN Inactive Vital Signs Date Name Value [...] - Chem istry sodium, serum 139 mmol/L 927-932 1252/10/12 potassium, serum 3.8 mmol/L 3.5-5.2 chloride, serum [...] negative Encounters Code Encounter Date Provider Facility CPT-77387 Level 3 Est. Patient 16:08:07 CDT David lion [facility] CPT-69138 Level 3 Est. Patient 16:53:54 CDT May haas MD [facility] CPT-90570 [id number] Vst-Est Level IV 08:41:[address] Carlton Hu MD [facility] CPT-47696 Level 3 Est. Patient 09:46:49 TOLL BOOTH OPERATOR David lion [facility] CPT-48123 [id number] Vst-Est Level III 11:12:16 CDT Yanet Bess DO [facility] CPT-43071 Level 3 Est. Patient 11:34:49 TOLL BOOTH OPERATOR Perez Mora MD [facility] CPT-95752 Level 4 Est. Patient 09:51:32 TOLL BOOTH OPERATOR Carlton rich MD [facility] CPT-96014 Level 3 Est. Patient 10:26:00 TOLL BOOTH OPERATOR Elise stephenson [facility] CPT-67223 Level 3 Est. Patient 13:35:41 TOLL BOOTH OPERATOR Carlton rich MD [facility] CPT-03143 Level 3 Est. Patient 10:03:52 TOLL BOOTH OPERATOR Carlton rich MD [facility] CPT-86682 Level 3 Est. Patient 12:17:50 CDT Hugo Restrepo MD [facility]-08895 Level 3 Est. Patient 13:42:38 CDT Elise stephenson [facility] CPT-87400 Level 3 Est. Patient 13:23:51 CDT Diya cobian [facility]-51208 Level 3 Est. Patient 14:22:19 TOLL BOOTH OPERATOR Diya cobian [facility] CPT-30322 Level 3 Est. Patient 10:11:46 CDT Carlton rich MD [facility] CPT-81747 Level 3 Est. Patient 17:29:43 CDT Elise Are ll [facility] CPT-28131 Level 3 Est. Patient 11:58:06 CDT Elise Are ll [facility] CPT-94904 Level 4 Est. Patient 14:36:51 CDT Carlton rich MD [facility] CPT-15480 Level 3 Est. Patient 18:16:00 TOLL BOOTH OPERATOR Blaine Freeman [facility]-91822 Level 3 Est. Patient 09:45:49 TOLL BOOTH OPERATOR Carlton rich MD [facility] CPT-61499 Level 3 Est. Patient 13:19:20 CDT Carlton rich MD [facility] CPT-41853 Level 3 Est. Patient 13:06:43 CDT Ridge tam DO [facility] CPT-97019 Level 3 Est. Patient 10:03:07 CDT Perez Mora MD [facility]-80217 Level 3 Est. Patient 19:50:35 TOLL BOOTH OPERATOR Carlton rich MD [facility] CPT-55060 Level 4 Est. Patient 18:05:01 TOLL BOOTH OPERATOR Carlton rich MD [facility] CPT-13704 Level 3 Est. Patient 10:45:55 TOLL BOOTH OPERATOR Hugo Restrepo MD [facility] CPT-04754 Level 3 Est. Patient 14:12:49 CDT Griffin lincoln [facility] CPT-17094 Level 3 Est. Patient 17:37:24 CDT Carlton rich MD [facility] CPT-24861 Level 3 Est. Patient 16:51:54 CDT Carlton rich MD [facility] CPT-38793 Level 3 Est. Patient 12:18:11 CDT Hugo Restrepo MD [facility] CPT-90091 Level 3 Est. Patient 11:30:25 CDT Marcy crisostomo MD PhD [facility] CPT-07755 Level 3 Est. Patient 12:00:47 TOLL BOOTH OPERATOR Carlton rich MD [facility] CPT-60421 Level 3 Est. Patient 16:31:06 TOLL BOOTH OPERATOR Carlton rich MD [facility] CPT-84693 Level 3 Est. Patient 16:23:24 TOLL BOOTH OPERATOR Ridge tam [facility] CPT-97442 Level 3 Est. Patient 12:34:12 CDT Carlton rich MD [facility] CPT-30660 Level 2 Est. Patient 15:43:33 CDT Robi armstrong MD [facility] CPT-12245 Level 4 Est. Patient 14:04:44 CDT Carlton rich MD [facility] CPT-17938 Level 3 Est. Patient 05:47:59 CDT Ridge tam [facility] CPT-40967 Level 3 Est. Patient 13:12:53 TOLL BOOTH OPERATOR Carlton rich MD [facility] CPT-27848 Level 3 Est. Patient 14:26:53 CDT Hugo [...] CPT-J1100 Decadron 6mg (Dexamethasone) 14:32:13 CDT 2 CPT-56932 Hip bilat min 2V w AP pelvis 13:16:20 CDT 2 CPT-18769 Pelvis only 13:07:33 CDT CPT-61356 Spec Collection and Handling Fee 11:25:12 C DT CPT-76933 Fluzone Quadrivalent Intramuscular Suspe nsion 0.5 ML 14:31:55 CDT CPT-72532 Abx/Therapy Injection 13:28:47 TOLL BOOTH OPERATOR CPT-J2930 Solu Medrol 125 mg (Methyl Prednisolone Sodium Succinate) 12:00:47 TOLL BOOTH OPERATOR CPT-35599 Venipuncture Draw Fee 11:33:31 CDT CPT-18659 EKG Trac and Interp 11:21:09 CDT CPT-69337 Chest 2V Frontal and Lat 11:21:09 CDT 12/15 CPT-18354 Venipuncture Draw Fee 08:02:34 CDT CPT-35403 Chest 2V Frontal and Lat 05:47:59 CDT 06/05
--- OUTSIDE RECORDS SUMMARY | 2019-10-08 08:57 | XMS REPORT | Clinical Summary ---
Author Author Caitlin, Juliana Martinez Organization [facility] Address Unknown Phone Unavailable Allergies, Adverse [...] URI 465.9 Inactive Ridge Bess DO Ac [place] upper respiratory infections of unspecified site Body Mass Index 35.0-35.9 Adult Refinement 2017 Ridge Bess DO Body Mass Index 35.0-35.9, adult BMI 34-34.9 Refinement Cherelle Torres RN Body Mass Index 35.0-35.9, adult BMI 35-35.9 Refinement David Lopes APRN Body Mass Index 35.0-35.9, adult BMI 34-34.9 Refinement aMy Vivar MD Body Mass Index 35.0-35.9, adult [...] for up 2 weeks TRIAMCINOLONE ACETON KAYLA [id number] Active David Marianne MICROGRINDER 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 AMOXICILLIN 500 MG ORAL CAPSULE 1 cap by mouth twice daily 10/21 AMOXICILLIN 51659953401 Active David Marianne MICROGRINDER OPERATOR Activ e ELMIRON 100 MG ORAL CAPSULE 2 capsules in the morning and 1 capsule at night PENTOSAN POLYSULFATE SODIUM 23903378520 Active Cinthia H art CHHA Active CYMBALTA 30 MG ORAL CAPSULE DELAYED RELEASE PARTICLES 1 cap by mouth daily for depression DULOXETINE HCL 49102781781 No Longer Active Carlton Hu MD Active CYMBALTA 60 MG ORAL CAPSULE DELAYED RELEASE PARTICLES 1 cap by mouth daily for mood and pain DULOXETINE HCL 26305358009 Active Carlton Hu MD Active TUSSIONEX PENNKINETIC ER 10-8 MG/5ML ORAL SUSPENSION E XTENDED RELEASE 5ml po q12hr PRN Cough HYDROCOD POLST-CHLORPHEN POLST 38376930201 Active David Marianne MICROGRINDER 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 PREDNISONE 20 MG ORAL TABLET Take 2 tabs day 1 and 2 and 1 t ab days 3 and 4 PREDNISONE 92393594507 No Longer Active David Marianne MICROGRINDER 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 DOXYCYCLINE HYCLATE 100 MG ORAL CAPSULE 1 cap by mouth twice latasha ly DOXYCYCLINE HYCLATE 88331145146 No Longer Active David Marianne MICROGRINDER 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 TOPAMAX 100 MG ORAL TABLET Take 1 tablet po bid TOPIRAMATE 02562031247 No Longer Active David Marianne MICROGRINDER 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 TUSSIONEX PENNKINETIC ER 10-8 MG/5ML ORAL SUSPENSION E XTENDED RELEASE 5ml po q12hr PRN Cough HYDROCOD POLST-CHLORPHEN POLST 5 0912432760 No Longer Active David Marianne MICROGRINDER 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 AUGMENTIN 875-125 MG ORAL TABLET 1 po BID x 10 days 18/04/16 AMOXICILLIN-POT CLAVULANATE 62286036786 No Longer Active David Lopes APRN Active PREDNISONE 50 MG ORAL TABLET Take 50 mg dialy for 6 day s 7 PREDNISONE 55221092771 No Longer Active David Marianne MICROGRINDER 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 TUSSIONEX PENNKINETIC ER 10-8 MG/5ML ORAL SUSPENSION E XTENDED RELEASE 5ml po q12hr PRN Cough HYDROCOD POLST-CHLORPHEN POLST 5 5112638211 No Longer Active Cherelle Torres RN Active PREDNISONE 20 MG ORAL TABLET two tabs by mouth today, then one tab by mouth days two and three and four PREDNISONE 04516615949 No Lo nger Active Cherelle Torres RN Active AZITHROMYCIN 250 MG ORAL TABLET 2 po qd x 1 day, then 1 po q d x 4 days AZITHROMYCIN 27033306862 No Longer Active Ridge Bess DO Active PREDNISONE 20 MG ORAL TABLET 2 po qd x 5 days P REDNISONE 61919074283 No Longer Active Perez Mora MD Active PROAIR HFA 108 (90 BASE) MCG/ACT INHALATION AEROSOL SO LUTION 2 puffs four times a day as needed ALBUTEROL SULFATE 40252866276 No Long er Active Becky FUENTES Active ASPIRIN 81 MG ORAL TABLET 1 po qd ASPIRIN 78915880658 Active Carlton Hu MD Active PREDNISONE 20 MG ORAL TABLET 1 tab twice daily for 3 d ay, then one daily for three days PREDNISONE 52215102558 No Longer Active Carlton Hu MD Active AUGMENTIN 875-125 MG ORAL TABLET 1 po BID x 10 days 20 16/03/22 AMOXICILLIN-POT CLAVULANATE 10160598809 No Longer Active Elise Garcia APRN Active TERBINAFINE HCL 250 MG ORAL TABLET 1 qDay for nail fungus 7 TERBINAFINE HCL 12573971879 No Longer Active Carlton Hu MD A ctive AMOXICILLIN 500 MG ORAL CAPSULE 1 cap by mouth three times a day AMOXICILLIN 60525988481 No Longer Active Carlton Hu MD Active ELMIRON 100 MG ORAL CAPSULE 2 tablets in the am and 1 tablet at hs PENTOSAN POLYSULFATE SODIUM 43420972041 No Longer Active Robert jade Hu MD Active MUCINEX D 60-600 MG ORAL TABLET EXTENDED RELEASE 12 HOUR 1 t ab po q am PSEUDOEPHEDRINE-GUAIFENESIN 96805968223 No Longer Act nael Carlton Hu MD Active MUCINEX DM MAXIMUM STRENGTH 60-1200 MG ORAL TABLET EXT ENDED RELEASE 12 HOUR 1 tab po q am DEXTROMETHORPHAN-GUAIFENESIN 06541001998 No Longer Active Carlton Hu MD Active TUSSIONEX PENNKINETIC ER 10-8 MG/5ML ORAL SUSPENSION E XTENDED RELEASE 5ml po q12hr PRN Cough HYDROCOD POLST-CHLORPHEN POLST 5 0097806817 No Longer Active Carlton Hu MD Active POTASSIUM CHLORIDE ER 20 MEQ ORAL TABLET EXTENDED RELE ASE Take 1 by mouth 4 times daily for 7 days POTASSIUM CHLORIDE 28637502956 No Longer Active Carlton Hu MD Active ZITHROMAX 250 MG ORAL TABLET 2 po today, then 1 po q days 2-5 14/09/04 AZITHROMYCIN 45877422267 No Longer Active Elise Garcia APRN Active TUSSIONEX PENNKINETIC ER 10-8 MG/5ML ORAL SUSPENSION E XTENDED RELEASE 5 ml twice a day as needed for cough HYDROCOD POLST-CHLORPH EN POLST 86327951038 No Longer Active Elise Garcia APRN Active MONTELUKAST SODIUM 10 MG ORAL TABLET 1 po daily for Allergy MONTELUKAST SODIUM 09138887661 Active Carlton Hu MD Ac tive TUSSIONEX PENNKINETIC ER 10-8 MG/5ML ORAL SUSPENSION E XTENDED RELEASE 5ml po q12hr PRN Cough HYDROCOD POLST-CHLORPHEN POLST 5 3736653485 No Longer Active Hugo Restrepo MD Active GABAPENTIN 100 MG ORAL CAPSULE 1 po BID for fibromyalgia GABAPENTIN 84343914735 Active ALFREDO Holly Active LYRICA 100 MG ORAL CAPSULE Take 1 tab po BID for fibromyalgia 20 11/08/21 PREGABALIN 21146258842 No Longer Active Elise Garcia APRN A ctive PREDNISONE 20 MG ORAL TABLET 2 tabs daily for 3 days, 1 tab daily for 3 days, 1/2 tab daily for 2 days PREDNISONE 62734502772 No Longer Active Jillina Frazell MICROGRINDER 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 TUSSIONEX PENNKINETIC ER 10-8 MG/5ML ORAL SUSPENSION E XTENDED RELEASE 5 mL PO q 12 hrs PRN cough HYDROCOD POLST-CHLORPHEN POLST 597366 59850 No Longer Active Jillina Frazell MICROGRINDER 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 FLUTICASONE PROPIONATE 50 MCG/ACT NASAL SUSPENSION 2 s prays each nostril daily until bottle is empty FLUTICASONE PROPIONATE 152054902 99 No Longer Active Jillina Frazell MICROGRINDER 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 ASMANEX 60 METERED DOSES 220 MCG/INH INHALATION AEROSO L POWDER BREATH ACTIVATED 1 puff bid with rinse after MOMETASONE FUROATE 4628756 4102 No Longer Active Jillina Frazell MICROGRINDER 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 ZITHROMAX Z-REYNA 250 MG ORAL TABLET 2 today, then 1 daily for 4 d ays AZITHROMYCIN 38783594228 No Longer Active Elise Garcia MICROGRINDER 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 TUSSIONEX PENNKINETIC ER 10-8 MG/5ML ORAL SUSPENSION E XTENDED RELEASE 5ml po q12hr PRN Cough HYDROCOD POLST-CHLORPHEN POLST 5 2298289479 No Longer Active Elise Garcia MICROGRINDER 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 PREDNISONE 20 MG ORAL TABLET 2 tabs daily for 3 days, 1 tab daily for 3 days, 1/2 tab daily for 2 days PREDNISONE 86812020535 No Longer Active Jillina Frazell MICROGRINDER 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 AMOXICILLIN 500 MG ORAL CAPSULE 2 po BID x 10 days 201 09/29/08 AMOXICILLIN 05927835314 No Longer Active Diya De Guzman MICROGRINDER OPERATOR Act nael SINGULAIR 10 MG ORAL TABLET 1 po qday for allergies 14/01/12 MONTELUKAST SODIUM 91299452422 No Longer Active Carlton Hu MD Active LEVAQUIN 500 MG ORAL TABLET 1 tablet by mouth daily 13/09/24 LEVOFLOXACIN 98166793007 No Longer Active Carlton Hu MD Acti ve FLUTICASONE PROPIONATE 50 MCG/ACT NASAL SUSPENSION 2 s prays each nostril daily for 2 weeks, then 1 spray each nostril daily. FLUTICASONE PROPIONATE 60064281369 Active Carlton Hu MD Active ZITHROMAX 250 MG ORAL TABLET 2 po today, then 1 po q days 2-5 20 13/08/10 AZITHROMYCIN 68332444676 No Longer Active Elise Garcia MICROGRINDER 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 XANAX 0.5 MG ORAL TABLET one tablet by mouth daily prn anxiety 2015 ALPRAZOLAM 03128710641 Active ALFREDO Holly Active CEFDINIR 300 MG ORAL CAPSULE 1 po BID x 10 days CEFDINIR 63959021819 No Longer Active Carlton Hu MD Active ZOCOR 40 MG ORAL TABLET 1 tab by mouth daily SI MVASTATIN 28727181671 No Longer Active Carlton Hu MD Active CYCLOBENZAPRINE HCL 10 MG ORAL TABLET 1 tablet by mouth BID prn had pain CYCLOBENZAPRINE HCL 32045899307 No Longer Active Jayden Hu MD Active LEVOFLOXACIN 500 MG ORAL TABLET 1 tab PO daily x 10 days LEVOFLOXACIN 34402921488 No Longer Active Carlton Hu MD Acti ve PREDNISONE 20 MG ORAL TABLET 3 tab PO qd x 2d, 2 tab P O qd x 2d, 1 tab PO qd x 2d, 1/2 tab PO qd x 2d PREDNISONE 63394195441 No Lo nger Active Carlton Hu MD Active FLUTICASONE PROPIONATE 50 MCG/ACT NASAL SUSPENSION 1 t o 2 sprays each nostril daily FLUTICASONE PROPIONATE 93015206347 No Longer Ac tive Blaine HERNANDEZ Active CHERATUSSIN AC 100-10 MG/5ML ORAL SYRUP 1 tsp by mouth every 4 hours as needed for cough GUAIFENESIN-CODEINE 60413523777 No Longe r Active Blaine HERNANDEZ Active PROMETHAZINE-CODEINE 6.25-10 MG/5ML ORAL SYRUP 1 tsp b y mouth every 6 hours if needed for cough PROMETHAZINE-CODEINE 24682612235 No Longer Active Blaine HERNANDEZ Active CHERATUSSIN AC 100-10 MG/5ML ORAL SYRUP 1 tsp by mouth every 4 hours as needed for cough GUAIFENESIN-CODEINE 81366312983 No Longe r Active Blaine HERNANDEZ Active ZITHROMAX Z-REYNA 250 MG ORAL TABLET 2 today, then 1 daily for 4 d ays AZITHROMYCIN 31374446191 No Longer Active Columba Raida Act nael ZITHROMAX 250 MG ORAL TABLET 2 po today, then 1 po q days 2-5 20 14/03/21 AZITHROMYCIN 09161883066 No Longer Active Carlton Hu MD Active ZITHROMAX Z-REYNA 250 MG ORAL TABLET 2 today, then 1 daily for 4 d ays AZITHROMYCIN 25700163708 No Longer Active Columba Raida Act nael AUGMENTIN 875-125 MG ORAL TABLET 1 po BID x 10 days 13/01/20 AMOXICILLIN-POT CLAVULANATE 06544696066 No Longer Active Diya De Guzman APRN Active ZITHROMAX 250 MG ORAL TABLET 2 po today, then 1 po q days 2-5 20 12/08/14 AZITHROMYCIN 30059434220 No Longer Active Carlton Hu MD Active TRAMADOL HCL 50 MG ORAL TABLET 1 po tid with ES Tylenol TRAMADOL HCL 13374284450 Active Cralton Hu MD Active PREMARIN 0.625 MG ORAL TABLET TAKE 1 TAB BY MOUTH DAILY ESTROGENS CONJUGATED 72578195944 No Longer Active Ridge Bess DO A ctive CYMBALTA 30 MG ORAL CAPSULE DELAYED RELEASE PARTICLES 1 cap by mouth daily DULOXETINE HCL 91411089347 No Longer Active Ridge Ya ee DO Active AMOXICILLIN 500 MG ORAL CAPSULE 1 tab by mouth 3 times daily x 10 days AMOXICILLIN 22838516652 No Longer Active Carlton bustamante MD Active AMOXICILLIN 500 MG ORAL CAPSULE 1 tab by mouth 3 times daily x 10 days AMOXICILLIN 24169357217 No Longer Active Carlton bustamante MD Active PROMETHAZINE-CODEINE 6.25-10 MG/5ML ORAL SYRUP 1 tsp b y mouth every 8 hours prn cough PROMETHAZINE-CODEINE 73775025938 No Longer Acti ve Carlton Hu MD Active MEDROL 4 MG ORAL TABLET THERAPY PACK 6 pills x 1 day, then 5 pills x 1 day then 4 pills x 1 day, then 3 pills x 1 day, then 2 pills x 1 day, then 1 pill x 1 day, then stop METHYLPREDNISOLONE 61800117940 No Long er Active Perez Mora MD Active AZITHROMYCIN 250 MG ORAL TABLET 2 po qd x 1 day, then 1 po q d x 4 days AZITHROMYCIN 36088222125 No Longer Active Perez Ambriz MD Active SYMBICORT 160-4.5 MCG/ACT INHALATION AEROSOL 2 puffs bid wit h rinse after BUDESONIDE-FORMOTEROL FUMARATE 94622642824 N o Longer Active Perez Mora MD Active LYRICA 75 MG ORAL CAPSULE TAKE 1 CAPSULE BY MOUTH TWICE DAILY PREGABALIN 17520594818 No Longer Active Carlton Hu MD Acti ve TOPAMAX 25 MG ORAL TABLET 1 qHS x 1 week, then 1 BID x 1 week, then 1 qAM and 2 qHS x 1 week, then 2 BID (migraine prevention) T OPIRAMATE 13534992631 No Longer Active Jerica FUENTES Active TOPAMAX 50 MG ORAL TABLET take 1 tab po BID for migraines. 07/02 TOPIRAMATE 59235376059 No Longer Active Jerica FEUNTES Active TRIAMCINOLONE ACETONIDE 0.1 % EXTERNAL CREAM apply three roger es daily prn rash TRIAMCINOLONE ACETONIDE 10741123426 No Longer Active Carlton Hu MD Active PAXIL 40 MG ORAL TABLET take 1 tab po qday for depression 0 PAROXETINE HCL 92669889767 Active Carlton Hu MD Active CHERATUSSIN AC 100-10 MG/5ML ORAL SYRUP 5ml po q6hr PRN Cough 20 13/04/14 GUAIFENESIN-CODEINE 00913229956 No Longer Active Carlton Hu MD Active MEDROL 4 MG ORAL TABLET THERAPY PACK 6 tabs on day 1, 5 tabs on day 2, 4 tabs on day 3, 3 tabs on day 4, 2 tabs on day 5, 1 tab on day 6 2013 METHYLPREDNISOLONE 16089180662 No Longer Active Perez Mora MD Active AZITHROMYCIN 250 MG ORAL TABLET 2 po qd x 1 day, then 1 po q d x 4 days AZITHROMYCIN 60208134719 No Longer Active Perez Ambriz MD Active PROPRANOLOL HCL 60 MG ORAL TABLET 1 PO Q D PROPRANOLOL HCL 69305389609 No Longer Active Perez Mora MD Activ e CHERATUSSIN AC 100-10 MG/5ML ORAL SYRUP take one tsp po Q 6h ours prn cough GUAIFENESIN-CODEINE 77338667612 No Longer Active Zia Mora MD Active AUGMENTIN 875-125 MG ORAL TABLET 1 tab by mouth twice daily with food AMOXICILLIN-POT CLAVULANATE 23433067696 No Longer Act nael Perez Mora MD Active CHERATUSSIN AC 100-10 MG/5ML ORAL SYRUP 1 tsp by mouth every 4 hours as needed for cough GUAIFENESIN-CODEINE 38444974748 No Longe r Active Hugo Restrepo MD Active ACETAMINOPHEN-CODEINE #3 300-30 MG ORAL TABLET 1 PO Q 4-[address] PAIN ACETAMINOPHEN-CODEINE 20884682019 No Longer Active Hugo Restrepo MD Active LEVAQUIN 500 MG ORAL TABLET take one po QD LEVO FLOXACIN 08377234486 No Longer Active Griffin HERNANDEZ Active PREDNISONE 20 MG ORAL TABLET Take 3 tabs daily for 3 d ays, 2 tabs daily for 3 days, 1 tab daily for 3 days, 1/2 tab daily for 3 days 11/07 PREDNISONE 35640287958 No Longer Active Carlton Hu MD Acti ve AVELOX 400 MG ORAL TABLET 1 tab by mouth daily MOXIFLOXACIN HCL 40447060016 No Longer Active Carlton Hu MD Active CHERATUSSIN AC 100-10 MG/5ML ORAL SYRUP 1 tsp by mouth every 4 hours as needed for cough GUAIFENESIN-CODEINE 63746552064 No Longe r Active Hugo Restrepo MD Active AVELOX 400 MG ORAL TABLET 1 tab by mouth daily MOXIFLOXACIN HCL 37173177691 No Longer Active Marcy De La Rosa MD PhD Active TERBINAFINE HCL 250 MG ORAL TABLET 1 qDay T ERBINAFINE HCL 75877879723 No Longer Active Marcy De La Rosa MD PhD Active CHERATUSSIN AC 100-10 MG/5ML ORAL SYRUP 1 tsp by mouth every 4 hours as needed for cough GUAIFENESIN-CODEINE 10415022701 No Longe r Active Marcy De La Rosa MD PhD Active AVELOX 400 MG ORAL TABLET 1 tab by mouth daily MOXIFLOXACIN HCL 27961884425 No Longer Active Marcy De La Rosa MD PhD Active HYDROCODONE-ACETAMINOPHEN 5-325 MG ORAL TABLET 1 po q 6hr PRN co ugh HYDROCODONE-ACETAMINOPHEN 83973507679 No Longer Active Marcy De La Rosa MD PhD Active PREDNISONE 20 MG ORAL TABLET 2 tabs daily for 3 days, 1 tab daily for 3 days, 1/2 tab daily for 2 days PREDNISONE 96306937891 No Longer Active Carlton Hu MD Active CEFDINIR 300 MG ORAL CAPSULE by mouth twice a day 2011 CEFDINIR 26314065598 No Longer Active Carlton Hu MD Acti ve HYDROCHLOROTHIAZIDE 25 MG ORAL TABLET 1 TAB PO DAILY HYDROCHLOROTHIAZIDE 64802699970 Active Carlton Hu MD A ctive ACETAMINOPHEN-CODEINE #3 300-30 MG ORAL TABLET 1 tablet po q 4-6 hrs prn pain ACETAMINOPHEN-CODEINE 51744445822 No Longer Active Ridge Bess DO Active ZITHROMAX 250 MG ORAL TABLET 2 po today, then 1 po q days 2-5 20 03/07/07 AZITHROMYCIN 30278327085 No Longer Active Carlton Hu MD Active CHERATUSSIN AC 100-10 MG/5ML ORAL SYRUP take 1 tsp po q4-6 h ours prn cough GUAIFENESIN-CODEINE 40383946904 No Longer Active Jayden Hu MD Active ACETAMINOPHEN-CODEINE #3 300-30 MG ORAL TABLET 1 PO Q 4-6 HR PRN PAIN ACETAMINOPHEN-CODEINE 78072948597 No Longer Active Da raimundo Hu MD Active LORTAB 7.5-500 MG/15ML ORAL ELIXIR 7.5 ml po q 4 hour prn cough HYDROCODONE-ACETAMINOPHEN 30284600906 No Longer Active Carlton Hu MD Active PREDNISONE 20 MG ORAL TABLET 1 po bid 3 days, then 1 po q day 3 days PREDNISONE 44084132593 No Longer Active Carlton Hu MD Active CEFDINIR 300 MG ORAL CAPSULE by mouth twice a day 2011 CEFDINIR 47025783362 No Longer Active Carlton Hu MD Acti ve CEFDINIR 300 MG ORAL CAPSULE by mouth twice a day 2010 CEFDINIR 56320262717 No Longer Active Carlton Hu MD Acti ve CEFDINIR 300 MG ORAL CAPSULE by mouth twice a day 2010 CEFDINIR 58404161959 No Longer Active Carlton Hu MD Acti ve TESSALON PERLES 100 MG ORAL CAPSULE 1 tablet by mouth 3 times daily as needed for cough BENZONATATE 86566794848 No Longer Active Carlton Hu MD Active CEFDINIR 300 MG ORAL CAPSULE by mouth twice a day 2010 CEFDINIR 98398587815 No Longer Active Carlton Hu MD Acti ve ZITHROMAX Z-REYNA 250 MG ORAL TABLET 2 today, then 1 daily for 4 d ays AZITHROMYCIN 01045803228 No Longer Active Hugo Restrepo MD Active TESSALON PERLES 100 MG ORAL CAPSULE 1 tablet by mouth 3 times daily as needed for cough TESSALON PERLES 100 MG ORAL CAPSULE 40657 7 BENZONATATE Inactive PREDNISONE 20 MG ORAL TABLET 1 po bid 3 days, then 1 po q day 3 days PREDNISONE 20 MG ORAL TABLET 005351 PREDNISONE Greer ctive LORTAB 7.5-500 MG/15ML ORAL [...] cough CHERATUSSIN AC 100-10 MG/5ML ORAL SYRUP 570442 GUAIFENESIN-CODEINE Inactive ACETAMINOPHEN-CODEINE #3 300-30 MG ORAL TABLET 1 tablet po q 4-6 hrs prn pain ACETAMINOPHEN-CODEINE #3 300-30 MG ORAL TABLET ACETAMINOPHEN-CODEINE Inactive HYDROCODONE-ACETAMINOPHEN 5-325 MG ORAL TABLET 1 po q 6hr PRN co ugh HYDROCODONE-ACETAMINOPHEN 5-325 MG ORAL TABLET 789661 HYDROCODONE-ACETAMINOPHEN Inactive AVELOX 400 MG ORAL TABLET 1 tab by mouth daily AVELOX 400 MG ORAL TABLET 064332 MOXIFLOXACIN HCL Inactive CHERATUSSIN AC 100-10 MG/5ML ORAL SYRUP 1 tsp by mouth every 4 hours as needed for cough CHERATUSSIN AC 100-10 MG/5ML ORAL SYRUP 9 30469 GUAIFENESIN-CODEINE Inactive TERBINAFINE HCL 250 MG ORAL TABLET 1 qDay 07/08 TERBINAFINE HCL 250 MG ORAL TABLET 835376 TERBINAFINE HCL Inactive CHERATUSSIN AC 100-10 MG/5ML ORAL SYRUP 1 tsp by mouth every 4 hours as needed for cough CHERATUSSIN AC 100-10 MG/5ML ORAL SYRUP 9 32617 GUAIFENESIN-CODEINE Inactive ACETAMINOPHEN-CODEINE #3 300-30 MG ORAL TABLET 1 PO Q 4-[address] N PAIN ACETAMINOPHEN-CODEINE #3 300-30 MG ORAL TABLET ACETAMINOPHEN-CODEINE Inactive CHERATUSSIN AC 100-10 MG/5ML ORAL SYRUP 1 tsp by mouth every 4 hours as needed for cough CHERATUSSIN AC 100-10 MG/5ML ORAL SYRUP 9 27484 GUAIFENESIN-CODEINE Inactive AUGMENTIN 875-125 MG ORAL TABLET 1 tab by mouth twice daily with food AUGMENTIN 875-125 MG ORAL TABLET AMOXICIL MADELINE-POT CLAVULANATE Inactive CHERATUSSIN AC 100-10 MG/5ML ORAL SYRUP take one tsp po Q 6h ours prn cough CHERATUSSIN AC 100-10 MG/5ML ORAL SYRUP 181514 GUAIFENESIN-CODEINE Inactive PROPRANOLOL HCL 60 MG ORAL TABLET 1 PO Q D PROPRANOLOL HCL 60 MG ORAL TABLET 546366 PROPRANOLOL HCL Inactive TOPAMAX 50 MG ORAL TABLET take 1 tab po BID for migraines. 07/02 TOPAMAX 50 MG ORAL TABLET 459365 TOPIRAMATE Inacti ve TOPAMAX 25 MG ORAL TABLET 1 qHS x 1 week, then 1 BID x 1 week, then 1 qAM and 2 qHS x 1 week, then 2 BID (migraine prevention) TOPAMAX 25 MG ORAL TABLET 124593 TOPIRAMATE Inactive LYRICA 75 MG ORAL CAPSULE TAKE 1 CAPSULE BY MOUTH TWICE DAILY LYRICA 75 MG ORAL CAPSULE PREGABALIN Inactive SYMBICORT 160-4.5 MCG/ACT INHALATION AEROSOL 2 puffs bid wit h rinse after SYMBICORT 160-4.5 MCG/ACT INHALATION AEROSOL BUDESONIDE- FORMOTEROL FUMARATE Inactive PROMETHAZINE-CODEINE 6.25-10 MG/5ML ORAL SYRUP 1 tsp b y mouth every 8 hours prn cough PROMETHAZINE-CODEINE 6.25-10 MG/ 5ML ORAL SYRUP 351823 PROMETHAZINE-CODEINE Inactive CYMBALTA 30 MG ORAL CAPSULE DELAYED RELEASE PARTICLES 1 cap by mouth daily CYMBALTA 30 MG ORAL CAPSULE DELAYED RELE ASE PARTICLES 155780 DULOXETINE HCL Inactive PREMARIN 0.625 MG ORAL TABLET TAKE 1 TAB BY MOUTH DAILY PREMARIN 0.625 MG ORAL TABLET ESTROGENS CONJUGATED Inactive CHERATUSSIN AC 100-10 MG/5ML ORAL SYRUP 1 tsp by mouth every 4 hours as needed for cough CHERATUSSIN AC 100-10 MG/5ML ORAL SYRUP 9 96537 GUAIFENESIN-CODEINE Inactive PROMETHAZINE-CODEINE 6.25-10 MG/5ML ORAL SYRUP 1 tsp b y mouth every 6 hours if needed for cough PROMETHAZINE-CODEINE 6.25-10 MG/5ML ORAL SYRUP 808296 PROMETHAZINE-CODEINE Inactive CHERATUSSIN AC 100-10 MG/5ML ORAL SYRUP 1 tsp by mouth every 4 hours as needed for cough CHERATUSSIN AC 100-10 MG/5ML ORAL SYRUP 9 29114 GUAIFENESIN-CODEINE Inactive FLUTICASONE PROPIONATE 50 MCG/ACT NASAL SUSPENSION 1 t o 2 sprays each nostril daily FLUTICASONE PROPIONATE 50 MCG/AC T NASAL SUSPENSION 3699779 FLUTICASONE PROPIONATE Inactive PREDNISONE 20 MG ORAL TABLET 3 tab PO qd x 2d, 2 tab P O qd x 2d, 1 tab PO qd x 2d, 1/2 tab PO qd x 2d PREDNISONE 20 MG ORAL TAB LET 931866 PREDNISONE Inactive LEVOFLOXACIN 500 MG ORAL TABLET 1 tab PO daily x 10 days LEVOFLOXACIN 500 MG ORAL TABLET 709142 LEVOFLOXACIN Inactive CYCLOBENZAPRINE HCL 10 MG ORAL TABLET 1 tablet by mouth BID prn had pain CYCLOBENZAPRINE HCL 10 MG ORAL TABLET 775583 CYCLOBENZAPRINE HCL Inactive ZOCOR 40 MG ORAL TABLET 1 tab by mouth daily 4 ZOCOR 40 MG ORAL TABLET 377047 SIMVASTATIN Inactive TUSSIONEX PENNKINETIC ER 10-8 MG/5ML [...] FLUTICASONE PROPIO EFE 50 MCG/ACT NASAL SUSPENSION 5931899 FLUTICASONE PROPIONATE Inactive TUSSIONEX PENNKINETIC ER 10-8 [...] three days PREDNISONE 20 MG ORAL TABLET 661755 PREDNIS ONE Inactive PROAIR HFA 108 (90 BASE) MCG/ACT INHALATION AEROSOL SO LUTION 2 puffs four times a day as needed PROAIR HFA 108 (90 B ASE) MCG/ACT INHALATION AEROSOL SOLUTION ALBUTEROL SULFATE Inactive PREDNISONE 20 MG ORAL TABLET two tabs by mouth today, then one tab by mouth days two and three and four PREDNISONE 20 MG ORAL TAB LET 882894 PREDNISONE Inactive TUSSIONEX PENNKINETIC ER 10-8 MG/5ML [...] bid 04/20 TOPAMAX 100 MG ORAL TABLET 693687 TOPIRAMATE Inactive CYMBALTA 30 MG ORAL CAPSULE DELAYED RELEASE PARTICLES 1 cap by mouth daily for depression CYMBALTA 30 MG ORAL CAPSULE DELAYED RELEASE PARTICLES 843325 DULOXETINE HCL Inactive ZITHROMAX Z-REYNA 250 MG ORAL TABLET 2 today, then 1 daily for 4 d ays ZITHROMAX Z-REYNA 250 MG ORAL TABLET 636422 AZITHROMYCIN Inactive CEFDINIR 300 MG ORAL CAPSULE [...] 20 03/07/07 ZITHROMAX 250 MG ORAL TABLET 652104 AZITHROMYCIN Greer ctive CEFDINIR 300 MG ORAL CAPSULE by mouth twice a day 2011 CEFDINIR 300 MG ORAL CAPSULE 562480 CEFDINIR Inactive PREDNISONE 20 MG ORAL TABLET 2 tabs daily for 3 days, 1 tab daily for 3 days, 1/2 tab daily for 2 days PREDNISONE 20 MG ORAL T ABLET 535100 PREDNISONE Inactive AVELOX 400 MG ORAL TABLET 1 tab by mouth daily AVELOX 400 MG ORAL TABLET 187976 MOXIFLOXACIN HCL Inactive AVELOX 400 MG ORAL TABLET 1 tab by mouth daily AVELOX 400 MG ORAL TABLET 619337 MOXIFLOXACIN HCL Inactive PREDNISONE 20 MG ORAL TABLET Take 3 tabs daily for 3 d ays, 2 tabs daily for 3 days, 1 tab daily for 3 days, 1/2 tab daily for 3 days 11/07 PREDNISONE 20 MG ORAL TABLET 639244 PREDNISONE Inactive LEVAQUIN 500 MG ORAL TABLET take one po QD LEVAQUIN 500 MG ORAL TABLET 056609 LEVOFLOXACIN Inactive AZITHROMYCIN 250 MG ORAL TABLET 2 po qd x 1 day, then 1 po q d x 4 days AZITHROMYCIN 250 MG ORAL TABLET 867073 AZITHROMY GIOVANNI Inactive MEDROL 4 MG ORAL TABLET THERAPY PACK 6 tabs on day 1, 5 tabs on day 2, 4 tabs on day 3, 3 tabs on day 4, 2 tabs on day 5, 1 tab on day 6 2013 MEDROL 4 MG ORAL TABLET THERAPY PACK 857537 METHYLPREDNISOLONE [place] ctive CHERATUSSIN AC 100-10 MG/5ML ORAL SYRUP 5ml po q6hr PRN Cough 20 13/04/14 CHERATUSSIN AC 100-10 MG/5ML ORAL SYRUP 254320 GUAIFENE SIN-CODEINE Inactive TRIAMCINOLONE ACETONIDE 0.1 % EXTERNAL CREAM apply three roger es daily prn rash TRIAMCINOLONE ACETONIDE 0.1 % EXTERNAL CREAM 101 4314 TRIAMCINOLONE ACETONIDE Inactive AZITHROMYCIN 250 MG ORAL TABLET 2 po qd x 1 day, then 1 po q d x 4 days AZITHROMYCIN 250 MG ORAL TABLET [id number] AZITHROMY GIOVANNI Inactive MEDROL 4 MG ORAL TABLET THERAPY PACK 6 pills x 1 day, then 5 pills x 1 day then 4 pills x 1 day, then 3 pills x 1 day, then 2 pills x 1 day, then 1 pill x 1 day, then stop MEDROL 4 MG ORAL TABLET THERAPY PACK 009246 METHYLPREDNISOLONE Inactive AMOXICILLIN 500 MG ORAL CAPSULE 1 tab by mouth 3 times daily x 10 days AMOXICILLIN 500 MG ORAL CAPSULE 853682 AMOXICILL IN Inactive AMOXICILLIN 500 MG ORAL CAPSULE 1 tab by mouth 3 times daily x 10 days AMOXICILLIN 500 MG ORAL CAPSULE 814032 AMOXICILL IN Inactive ZITHROMAX 250 MG ORAL TABLET 2 po today, then 1 po q days 2-5 20 12/08/14 ZITHROMAX 250 MG ORAL TABLET 984052 AZITHROMYCIN [place] [facility] AUGMENTIN 875-125 MG ORAL TABLET 1 po BID x 10 days 20 13/01/20 AUGMENTIN 875-125 MG ORAL TABLET AMOXICILLIN-POT CLAVULANATE Inactive ZITHROMAX Z-REYNA 250 MG ORAL TABLET 2 today, then 1 daily for 4 d ays ZITHROMAX Z-REYNA 250 MG ORAL TABLET 782076 AZITHROMYCIN Inactive ZITHROMAX 250 MG ORAL TABLET 2 po today, then 1 po q days 2-5 20 14/03/21 ZITHROMAX 250 MG ORAL TABLET 057582 AZITHROMYCIN [place] [facility] ZITHROMAX Z-REYNA 250 MG ORAL TABLET 2 today, then 1 daily for 4 d ays ZITHROMAX Z-REYNA 250 MG ORAL TABLET 684034 AZITHROMYCIN Inactive CEFDINIR 300 MG ORAL CAPSULE 1 po BID x 10 days 06/21 CEFDINIR 300 MG ORAL CAPSULE 20020704 CEFDINIR Inactive ZITHROMAX 250 MG ORAL TABLET 2 po today, then 1 po q days 2-5 20 13/08/10 ZITHROMAX 250 MG ORAL TABLET 437755 AZITHROMYCIN [place] [facility] LEVAQUIN 500 MG ORAL TABLET 1 tablet by mouth daily 13/09/24 LEVAQUIN 500 MG ORAL TABLET 19971102 LEVOFLOXACIN Inactive SINGULAIR 10 MG ORAL TABLET 1 po qday for allergies 14/01/12 SINGULAIR 10 MG ORAL TABLET 20010504 MONTELUKAST SODIUM Inactive AMOXICILLIN 500 MG ORAL CAPSULE 2 po BID x 10 days 201 09/29/08 AMOXICILLIN 500 MG ORAL CAPSULE 515606 AMOXICILLIN Inactive PREDNISONE 20 MG ORAL TABLET 2 tabs daily for 3 days, 1 tab daily for 3 days, 1/2 tab daily for 2 days PREDNISONE 20 MG ORAL T ABLET 970853 PREDNISONE Inactive ZITHROMAX Z-REYNA 250 MG ORAL TABLET 2 today, then 1 daily for 4 d ays ZITHROMAX Z-REYNA 250 MG ORAL TABLET 997185 AZITHROMYCIN Inactive PREDNISONE 20 MG ORAL TABLET 2 tabs daily for 3 days, 1 tab daily for 3 days, 1/2 tab daily for 2 days PREDNISONE 20 MG ORAL T ABLET 109127 PREDNISONE Inactive ZITHROMAX 250 MG ORAL TABLET 2 po today, then 1 po q days 2-5 20 14/09/04 ZITHROMAX 250 MG ORAL TABLET 602225 AZITHROMYCIN [place] [facility] AMOXICILLIN 500 MG ORAL CAPSULE 1 cap by mouth three times a day AMOXICILLIN 500 MG ORAL CAPSULE 848033 AMOXICILLIN Inactive TERBINAFINE HCL 250 MG ORAL TABLET 1 qDay for nail fungus 7 TERBINAFINE HCL 250 MG ORAL TABLET 045441 TERBINAFINE HCL Inact nael AUGMENTIN 875-125 MG ORAL TABLET 1 po BID x 10 days 20 16/03/22 AUGMENTIN 875-125 MG ORAL TABLET AMOXICILLIN-POT CLAVULANATE Inactive PREDNISONE 20 MG ORAL TABLET 2 po qd x 5 days PREDNISONE 20 MG ORAL TABLET 390344 PREDNISONE Inactive AZITHROMYCIN 250 MG ORAL TABLET 2 po qd x 1 day, then 1 po q d x 4 days AZITHROMYCIN 250 MG ORAL TABLET 157465 AZITHROMY GIOVANNI Inactive PREDNISONE 50 MG ORAL TABLET Take 50 mg dialy for 6 day s 7 PREDNISONE 50 MG ORAL TABLET 988261 PREDNISONE Inactive AUGMENTIN 875-125 MG ORAL TABLET 1 po BID x 10 days 18/04/16 AUGMENTIN 875-125 MG ORAL TABLET AMOXICILLIN-POT CLAVULANATE Inactive DOXYCYCLINE HYCLATE 100 MG ORAL CAPSULE 1 cap by mouth twice latasha ly DOXYCYCLINE HYCLATE 100 MG ORAL CAPSULE 0065291 DOXYCYCL INE HYCLATE Inactive PREDNISONE 20 MG ORAL TABLET Take 2 tabs day 1 and 2 and 1 t ab days 3 and 4 PREDNISONE 20 MG ORAL TABLET 748277 PREDNISONE Inactive Vital Signs Date Name Value [...] - Chem istry sodium, serum 139 mmol/L 680-706 4829/10/12 potassium, serum 3.8 mmol/L 3.5-5.2 chloride, serum [...] negative Encounters Code Encounter Date Provider Facility CPT-55611 Level 3 Est. Patient 16:08:07 CDT David lion [facility] CPT-67790 Level 3 Est. Patient 16:53:54 CDT May haas MD [facility] CPT-13397 [id number] Vst-Est Level IV 08:41:[address] Carlton Hu MD [facility] CPT-80030 Level 3 Est. Patient 09:46:49 GUN NUMBERER David lion [facility] CPT-12158 [id number] Vst-Est Level III 11:12:16 CDT Yanet Bess DO [facility] CPT-66408 Level 3 Est. Patient 11:34:49 GUN NUMBERER Perez Mora MD [facility] CPT-34179 Level 4 Est. Patient 09:51:32 GUN NUMBERER Carlton rich MD [facility] CPT-83589 Level 3 Est. Patient 10:26:00 GUN NUMBERER Elise stephenson [facility] CPT-74279 Level 3 Est. Patient 13:35:41 GUN NUMBERER Carlton rich MD [facility] CPT-51250 Level 3 Est. Patient 10:03:52 GUN NUMBERER Carlton rich MD [facility] CPT-12106 Level 3 Est. Patient 12:17:50 CDT Hugo Restrepo MD [facility] CPT-82849 Level 3 Est. Patient 13:42:38 CDT Elise stephenson [facility] CPT-30997 Level 3 Est. Patient 13:23:51 CDT Diya cobian [facility] CPT-62406 Level 3 Est. Patient 14:22:19 GUN NUMBERER Diya cobian [facility] CPT-09885 Level 3 Est. Patient 10:11:46 CDT Carlton rich MD [facility] CPT-27604 Level 3 Est. 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 Patient 11:58:06 CDT Elise Are ll [facility] CPT-44115 Level 4 Est. Patient 14:36:51 CDT Carlton rich MD [facility] CPT-96135 Level 3 Est. Patient 18:16:00 GUN NUMBERER Blaine Freeman [facility] CPT-05840 Level 3 Est. Patient 09:45:49 GUN NUMBERER Carlton rich MD [facility] CPT-94451 Level 3 Est. Patient 13:19:20 CDT Carlton rich MD [facility] CPT-95071 Level 3 Est. Patient 13:06:43 CDT Ridge tam DO [facility] CPT-89253 Level 3 Est. Patient 10:03:07 CDT Perez Mora MD [facility] CPT-47438 Level 3 Est. Patient 19:50:35 GUN NUMBERER Carlton rich MD [facility] CPT-29863 Level 4 Est. Patient 18:05:01 GUN NUMBERER Carlton rich MD [facility] CPT-82700 Level 3 Est. Patient 10:45:55 GUN NUMBERER Hugo Restrepo MD [facility] CPT-40821 Level 3 Est. Patient 14:12:49 CDT Griffin lincoln [facility] CPT-47431 Level 3 Est. Patient 17:37:24 CDT Carlton rich MD [facility] CPT-03810 Level 3 Est. Patient 16:51:54 CDT Carlton rich MD [facility] CPT-95778 Level 3 Est. Patient 12:18:11 CDT Hugo Restrepo MD [facility] CPT-91948 Level 3 Est. Patient 11:30:25 CDT Marcy crisostomo MD PhD [facility] CPT-85521 Level 3 Est. Patient 12:00:47 GUN NUMBERER Carlton rich MD [facility] CPT-96441 Level 3 Est. Patient 16:31:06 GUN NUMBERER Carlton rich MD [facility] CPT-72529 Level 3 Est. Patient 16:23:24 GUN NUMBERER Ridge tam [facility] CPT-20635 Level 3 Est. Patient 12:34:12 CDT Carlton rich MD [facility] CPT-24332 Level 2 Est. Patient 15:43:33 CDT Robi armstrong MD [facility] CPT-87004 Level 4 Est. Patient 14:04:44 CDT Carlton rich MD [facility] CPT-23239 Level 3 Est. Patient 05:47:59 CDT Ridge tam [facility] CPT-99786 Level 3 Est. Patient 13:12:53 GUN NUMBERER Carlton rich MD [facility] CPT-54309 Level 3 Est. Patient 14:26:53 CDT Hugo [...] CPT-J1100 Decadron 6mg (Dexamethasone) 14:32:13 CDT 2 CPT-94320 Hip bilat min 2V w AP pelvis 13:16:20 CDT 2 CPT-21294 Pelvis only 13:07:33 CDT CPT-12865 Spec Collection and Handling Fee 11:25:12 C DT CPT-26715 Fluzone Quadrivalent Intramuscular Suspe nsion 0.5 ML 14:31:55 CDT CPT-39800 Abx/Therapy Injection 13:28:47 GUN NUMBERER CPT-J2930 Solu Medrol 125 mg (Methyl Prednisolone Sodium Succinate) 12:00:47 GUN NUMBERER CPT-24015 Venipuncture Draw Fee 11:33:31 CDT CPT-39704 EKG Trac and Interp 11:21:09 CDT CPT-49107 Chest 2V Frontal and Lat 11:21:09 CDT 12/15 CPT-45726 Venipuncture Draw Fee 08:02:34 CDT CPT-78579 Chest 2V Frontal and Lat 05:47:59 CDT 06/05
--- OUTSIDE RECORDS SUMMARY | 2019-10-08 08:57 | XMS REPORT | Clinical Summary ---
Author Author Caitlin, Juliana Martinez Organization [facility] Address Unknown Phone Unavailable Allergies, [...] and thigh Pelvic pain, acute 789.09 Resolved Hguo gilmore MD Abdominal pain, other specified site; [...] URI 465.9 Inactive Ridge Bess DO Ac [place] upper respiratory infections of unspecified site Body [...] for up 2 weeks TRIAMCINOLONE ACETON KAYLA [id number] Active David Marianne HERBICIDE SERVICE SALES REPRESENTATIVE Active AMOXICILLIN 500 MG ORAL CAPSULE 1 cap by mouth twice daily 10/21 AMOXICILLIN 02991649784 Active David Marianne HERBICIDE SERVICE SALES REPRESENTATIVE Activ e ELMIRON 100 MG ORAL CAPSULE 2 capsules in the morning and 1 capsule at night PENTOSAN POLYSULFATE SODIUM 09595077881 Active 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 CYMBALTA 30 MG ORAL CAPSULE DELAYED RELEASE PARTICLES 1 cap by mouth daily for depression DULOXETINE HCL 55028255150 No Longer Active Carlton Hu MD Active CYMBALTA 60 MG ORAL CAPSULE DELAYED RELEASE PARTICLES 1 cap by mouth daily for mood and pain DULOXETINE HCL 60037383184 Active Carlton Hu MD Active TUSSIONEX PENNKINETIC ER 10-8 MG/5ML ORAL SUSPENSION E XTENDED RELEASE 5ml po q12hr PRN Cough HYDROCOD POLST-CHLORPHEN POLST 99249262098 Active David Marianne HERBICIDE SERVICE SALES REPRESENTATIVE Active PREDNISONE 20 MG ORAL TABLET Take 2 tabs day 1 and 2 and 1 t ab days 3 and 4 PREDNISONE 24187257672 No Longer Active David Marianne HERBICIDE SERVICE SALES REPRESENTATIVE Active DOXYCYCLINE HYCLATE 100 MG ORAL CAPSULE 1 cap by mouth twice latasha ly DOXYCYCLINE HYCLATE 34180692063 No Longer Active David Marianne HERBICIDE SERVICE SALES REPRESENTATIVE Active TOPAMAX 100 MG ORAL TABLET Take 1 tablet po bid TOPIRAMATE 13210391413 No Longer Active David Marianne HERBICIDE SERVICE SALES REPRESENTATIVE Active TUSSIONEX PENNKINETIC ER 10-8 MG/5ML ORAL SUSPENSION E XTENDED RELEASE 5ml po q12hr PRN Cough HYDROCOD POLST-CHLORPHEN POLST 5 3616369376 No Longer Active David Marianne HERBICIDE SERVICE SALES REPRESENTATIVE Active AUGMENTIN 875-125 MG ORAL TABLET 1 po BID x 10 days 18/04/16 AMOXICILLIN-POT CLAVULANATE 59060719388 No Longer Active David Lopes APRN Active PREDNISONE 50 MG ORAL TABLET Take 50 mg dialy for 6 day s 7 PREDNISONE 05711157726 No Longer Active David Marianne HERBICIDE SERVICE SALES REPRESENTATIVE Active TUSSIONEX PENNKINETIC ER 10-8 MG/5ML ORAL SUSPENSION E XTENDED RELEASE 5ml po q12hr PRN Cough HYDROCOD POLST-CHLORPHEN POLST 5 9624823846 No Longer Active Cherelle Torres RN Active PREDNISONE 20 MG ORAL TABLET two tabs by mouth today, then one tab by mouth days two and three and four PREDNISONE 26073724003 No Lo nger Active Cherelle Torres RN Active AZITHROMYCIN 250 MG ORAL TABLET 2 po qd x 1 day, then 1 po q d x 4 days AZITHROMYCIN 14322575284 No Longer Active Ridge Bess DO Active PREDNISONE 20 MG ORAL TABLET 2 po qd x 5 days P REDNISONE 02246216431 No Longer Active Perez Mora MD Active PROAIR HFA 108 (90 BASE) MCG/ACT INHALATION AEROSOL SO LUTION 2 puffs four times a day as needed ALBUTEROL SULFATE 42111283881 No Long er Active Becky FUENTES Active ASPIRIN 81 MG ORAL TABLET 1 po qd ASPIRIN 72900676669 Active Carlton Hu MD Active PREDNISONE 20 MG ORAL TABLET 1 tab twice daily for 3 d ay, then one daily for three days PREDNISONE 14997248572 No Longer Active Carlton Hu MD Active AUGMENTIN 875-125 MG ORAL TABLET 1 po BID x 10 days 20 16/03/22 AMOXICILLIN-POT CLAVULANATE 48445177112 No Longer Active Elise Garcia APRN Active TERBINAFINE HCL 250 MG ORAL TABLET 1 qDay for nail fungus 7 TERBINAFINE HCL 71237951206 No Longer Active Carlton Hu MD A ctive AMOXICILLIN 500 MG ORAL CAPSULE 1 cap by mouth three times a day AMOXICILLIN 97658811911 No Longer Active Carlton Hu MD Active ELMIRON 100 MG ORAL CAPSULE 2 tablets in the am and 1 tablet at hs PENTOSAN POLYSULFATE SODIUM 54112426710 No Longer Active Robert jade Hu MD Active MUCINEX D 60-600 MG ORAL TABLET EXTENDED RELEASE 12 HOUR 1 t ab po q am PSEUDOEPHEDRINE-GUAIFENESIN 88839047983 No Longer Act nael Carlton Hu MD Active MUCINEX DM MAXIMUM STRENGTH 60-1200 MG ORAL TABLET EXT ENDED RELEASE 12 HOUR 1 tab po q am DEXTROMETHORPHAN-GUAIFENESIN 03073060586 No Longer Active Carlton Hu MD Active TUSSIONEX PENNKINETIC ER 10-8 MG/5ML ORAL SUSPENSION E XTENDED RELEASE 5ml po q12hr PRN Cough HYDROCOD POLST-CHLORPHEN POLST 5 0550342255 No Longer Active Carlton Hu MD Active POTASSIUM CHLORIDE ER 20 MEQ ORAL TABLET EXTENDED RELE ASE Take 1 by mouth 4 times daily for 7 days POTASSIUM CHLORIDE 17259893751 No Longer Active Carlton Hu MD Active ZITHROMAX 250 MG ORAL TABLET 2 po today, then 1 po q days 2-5 14/09/04 AZITHROMYCIN 33010436057 No Longer Active Elise Garcia APRN Active TUSSIONEX PENNKINETIC ER 10-8 MG/5ML ORAL SUSPENSION E XTENDED RELEASE 5 ml twice a day as needed for cough HYDROCOD POLST-CHLORPH EN POLST 89666228016 No Longer Active Elise aGrcia APRN Active MONTELUKAST SODIUM 10 MG ORAL TABLET 1 po daily for Allergy MONTELUKAST SODIUM 61674590832 Active Carlton Hu MD Ac tive TUSSIONEX PENNKINETIC ER 10-8 MG/5ML ORAL SUSPENSION E XTENDED RELEASE 5ml po q12hr PRN Cough HYDROCOD POLST-CHLORPHEN POLST 5 1838902938 No Longer Active Hugo Restrepo MD Active GABAPENTIN 100 MG ORAL CAPSULE 1 po BID for fibromyalgia GABAPENTIN 51567624336 Active ALFREDO Holly Active LYRICA 100 MG ORAL CAPSULE Take 1 tab po BID for fibromyalgia 20 11/08/21 PREGABALIN 05422909955 No Longer Active Elise Garcia APRN A ctive PREDNISONE 20 MG ORAL TABLET 2 tabs daily for 3 days, 1 tab daily for 3 days, 1/2 tab daily for 2 days PREDNISONE 22545005479 No Longer Active Jillina Frazell HERBICIDE SERVICE SALES REPRESENTATIVE Active TUSSIONEX PENNKINETIC ER 10-8 MG/5ML ORAL SUSPENSION E XTENDED RELEASE 5 mL PO q 12 hrs PRN cough HYDROCOD POLST-CHLORPHEN POLST 801520 10415 No Longer Active Jillina Frazell HERBICIDE SERVICE SALES REPRESENTATIVE Active FLUTICASONE PROPIONATE 50 MCG/ACT NASAL SUSPENSION 2 s prays each nostril daily until bottle is empty FLUTICASONE PROPIONATE 614954823 99 No Longer Active Jillina Frazell HERBICIDE SERVICE SALES REPRESENTATIVE Active ASMANEX 60 METERED DOSES 220 MCG/INH INHALATION AEROSO L POWDER BREATH ACTIVATED 1 puff bid with rinse after MOMETASONE FUROATE 0472514 4102 No Longer Active Jillina Frazell HERBICIDE SERVICE SALES REPRESENTATIVE Active ZITHROMAX Z-REYNA 250 MG ORAL TABLET 2 today, then 1 daily for 4 d ays AZITHROMYCIN 15121286723 No Longer Active Elise Garcia HERBICIDE SERVICE SALES REPRESENTATIVE Active TUSSIONEX PENNKINETIC ER 10-8 MG/5ML ORAL SUSPENSION E XTENDED RELEASE 5ml po q12hr PRN Cough HYDROCOD POLST-CHLORPHEN POLST 5 5605829282 No Longer Active Elise Garcia HERBICIDE SERVICE SALES REPRESENTATIVE Active PREDNISONE 20 MG ORAL TABLET 2 tabs daily for 3 days, 1 tab daily for 3 days, 1/2 tab daily for 2 days PREDNISONE 93186786117 No Longer Active Jillina Frazell HERBICIDE SERVICE SALES REPRESENTATIVE Active AMOXICILLIN 500 MG ORAL CAPSULE 2 po BID x 10 days 201 09/29/08 AMOXICILLIN 05424804307 No Longer Active Diya De Guzman HERBICIDE SERVICE SALES REPRESENTATIVE Act nael SINGULAIR 10 MG ORAL TABLET 1 po qday for allergies 14/01/12 MONTELUKAST SODIUM 53260646635 No Longer Active Carlton Hu MD Active LEVAQUIN 500 MG ORAL TABLET 1 tablet by mouth daily 13/09/24 LEVOFLOXACIN 63653284980 No Longer Active Carlton Hu MD Acti ve FLUTICASONE PROPIONATE 50 MCG/ACT NASAL SUSPENSION 2 s prays each nostril daily for 2 weeks, then 1 spray each nostril daily. FLUTICASONE PROPIONATE 37734752142 Active Carlton Hu MD Active ZITHROMAX 250 MG ORAL TABLET 2 po today, then 1 po q days 2-5 20 13/08/10 AZITHROMYCIN 33908049857 No Longer Active Elise Garcia HERBICIDE SERVICE SALES REPRESENTATIVE Active XANAX 0.5 MG ORAL TABLET one tablet by mouth daily prn anxiety 2015 ALPRAZOLAM 63211324984 Active ALFREDO Holly Active CEFDINIR 300 MG ORAL CAPSULE 1 po BID x 10 days CEFDINIR 34801037597 No Longer Active Carlton Hu MD Active ZOCOR 40 MG ORAL TABLET 1 tab by mouth daily SI MVASTATIN 14116199251 No Longer Active Carlton Hu MD Active CYCLOBENZAPRINE HCL 10 MG ORAL TABLET 1 tablet by mouth BID prn had pain CYCLOBENZAPRINE HCL 87975221542 No Longer Active Jayden Hu MD Active LEVOFLOXACIN 500 MG ORAL TABLET 1 tab PO daily x 10 days LEVOFLOXACIN 75614437702 No Longer Active Carlton Hu MD Acti ve PREDNISONE 20 MG ORAL TABLET 3 tab PO qd x 2d, 2 tab P O qd x 2d, 1 tab PO qd x 2d, 1/2 tab PO qd x 2d PREDNISONE 42245231047 No Lo nger Active Carlton Hu MD Active FLUTICASONE PROPIONATE 50 MCG/ACT NASAL SUSPENSION 1 t o 2 sprays each nostril daily FLUTICASONE PROPIONATE 60989437217 No Longer Ac tive Blaine HERNANDEZ Active CHERATUSSIN AC 100-10 MG/5ML ORAL SYRUP 1 tsp by mouth every 4 hours as needed for cough GUAIFENESIN-CODEINE 76685098193 No Longe r Active Blaine HERNANDEZ Active PROMETHAZINE-CODEINE 6.25-10 MG/5ML ORAL SYRUP 1 tsp b y mouth every 6 hours if needed for cough PROMETHAZINE-CODEINE 78991570937 No Longer Active Blaine HERNANDEZ Active CHERATUSSIN AC 100-10 MG/5ML ORAL SYRUP 1 tsp by mouth every 4 hours as needed for cough GUAIFENESIN-CODEINE 58138501659 No Longe r Active Blaine HERNANDEZ Active ZITHROMAX Z-REYNA 250 MG ORAL TABLET 2 today, then 1 daily for 4 d ays AZITHROMYCIN 60864237346 No Longer Active Columba Raida Act nael ZITHROMAX 250 MG ORAL TABLET 2 po today, then 1 po q days 2-5 20 14/03/21 AZITHROMYCIN 20054124721 No Longer Active Carlton Hu MD Active ZITHROMAX Z-REYNA 250 MG ORAL TABLET 2 today, then 1 daily for 4 d ays AZITHROMYCIN 43820324496 No Longer Active Columba Raida Act nael AUGMENTIN 875-125 MG ORAL TABLET 1 po BID x 10 days 13/01/20 AMOXICILLIN-POT CLAVULANATE 71421116457 No Longer Active Diya De Guzman APRN Active ZITHROMAX 250 MG ORAL TABLET 2 po today, then 1 po q days 2-5 20 12/08/14 AZITHROMYCIN 70562329217 No Longer Active Carlton Hu MD Active TRAMADOL HCL 50 MG ORAL TABLET 1 po tid with ES Tylenol TRAMADOL HCL 24070917824 Active Carlton Hu MD Active PREMARIN 0.625 MG ORAL TABLET TAKE 1 TAB BY MOUTH DAILY ESTROGENS CONJUGATED 95667140501 No Longer Active Ridge Bess DO A ctive CYMBALTA 30 MG ORAL CAPSULE DELAYED RELEASE PARTICLES 1 cap by mouth daily DULOXETINE HCL 83481952578 No Longer Active Ridge Ya ee DO Active AMOXICILLIN 500 MG ORAL CAPSULE 1 tab by mouth 3 times daily x 10 days AMOXICILLIN 69448871753 No Longer Active Carlton bustamante MD Active AMOXICILLIN 500 MG ORAL CAPSULE 1 tab by mouth 3 times daily x 10 days AMOXICILLIN 14836161870 No Longer Active Carlton bustamante MD Active PROMETHAZINE-CODEINE 6.25-10 MG/5ML ORAL SYRUP 1 tsp b y mouth every 8 hours prn cough PROMETHAZINE-CODEINE 06602209423 No Longer Acti ve Carlton Hu MD Active MEDROL 4 MG ORAL TABLET THERAPY PACK 6 pills x 1 day, then 5 pills x 1 day then 4 pills x 1 day, then 3 pills x 1 day, then 2 pills x 1 day, then 1 pill x 1 day, then stop METHYLPREDNISOLONE 72287079191 No Long er Active Perez Mora MD Active AZITHROMYCIN 250 MG ORAL TABLET 2 po qd x 1 day, then 1 po q d x 4 days AZITHROMYCIN 82515061920 No Longer Active Perez Ambriz MD Active SYMBICORT 160-4.5 MCG/ACT INHALATION AEROSOL 2 puffs bid wit h rinse after BUDESONIDE-FORMOTEROL FUMARATE 38465322426 N o Longer Active Perez Mora MD Active LYRICA 75 MG ORAL CAPSULE TAKE 1 CAPSULE BY MOUTH TWICE DAILY PREGABALIN 52344075924 No Longer Active Carlton Hu MD Acti ve TOPAMAX 25 MG ORAL TABLET 1 qHS x 1 week, then 1 BID x 1 week, then 1 qAM and 2 qHS x 1 week, then 2 BID (migraine prevention) T OPIRAMATE 72252636228 No Longer Active Jerica FUENTES Active TOPAMAX 50 MG ORAL TABLET take 1 tab po BID for migraines. 07/02 TOPIRAMATE 51096678158 No Longer Active Jerica FUENETS Active TRIAMCINOLONE ACETONIDE 0.1 % EXTERNAL CREAM apply three roger es daily prn rash TRIAMCINOLONE ACETONIDE 42926727203 No Longer Active Carlton Hu MD Active PAXIL 40 MG ORAL TABLET take 1 tab po qday for depression 0 PAROXETINE HCL 70450892263 Active Carlton Hu MD Active CHERATUSSIN AC 100-10 MG/5ML ORAL SYRUP 5ml po q6hr PRN Cough 20 13/04/14 GUAIFENESIN-CODEINE 06761686835 No Longer Active Carlton Hu MD Active MEDROL 4 MG ORAL TABLET THERAPY PACK 6 tabs on day 1, 5 tabs on day 2, 4 tabs on day 3, 3 tabs on day 4, 2 tabs on day 5, 1 tab on day 6 2013 METHYLPREDNISOLONE 34968234946 No Longer Active Perez Mora MD Active AZITHROMYCIN 250 MG ORAL TABLET 2 po qd x 1 day, then 1 po q d x 4 days AZITHROMYCIN 81684303941 No Longer Active Perez Ambriz MD Active PROPRANOLOL HCL 60 MG ORAL TABLET 1 PO Q D PROPRANOLOL HCL 16384217955 No Longer Active Perez Mora MD Activ e CHERATUSSIN AC 100-10 MG/5ML ORAL SYRUP take one tsp po Q 6h ours prn cough GUAIFENESIN-CODEINE 81602349279 No Longer Active Zia Mora MD Active AUGMENTIN 875-125 MG ORAL TABLET 1 tab by mouth twice daily with food AMOXICILLIN-POT CLAVULANATE 55075646064 No Longer Act nael Perez Mora MD Active CHERATUSSIN AC 100-10 MG/5ML ORAL SYRUP 1 tsp by mouth every 4 hours as needed for cough GUAIFENESIN-CODEINE 89751536029 No Longe r Active Hugo Restrepo MD Active ACETAMINOPHEN-CODEINE #3 300-30 MG ORAL TABLET 1 PO Q 4-6 HRS [place] N PAIN ACETAMINOPHEN-CODEINE 01202573621 No Longer Active Hugo Restrepo MD Active LEVAQUIN 500 MG ORAL TABLET take one po QD LEVO FLOXACIN 50385986436 No Longer Active Griffin HERNANDEZ Active PREDNISONE 20 MG ORAL TABLET Take 3 tabs daily for 3 d ays, 2 tabs daily for 3 days, 1 tab daily for 3 days, 1/2 tab daily for 3 days 11/07 PREDNISONE 62507709587 No Longer Active Carlton Hu MD Acti ve AVELOX 400 MG ORAL TABLET 1 tab by mouth daily MOXIFLOXACIN HCL 71393460316 No Longer Active Carlton Hu MD Active CHERATUSSIN AC 100-10 MG/5ML ORAL SYRUP 1 tsp by mouth every 4 hours as needed for cough GUAIFENESIN-CODEINE 36520621551 No Longe r Active Hugo Restrepo MD Active AVELOX 400 MG ORAL TABLET 1 tab by mouth daily MOXIFLOXACIN HCL 21319588050 No Longer Active Marcy De La Rosa MD PhD Active TERBINAFINE HCL 250 MG ORAL TABLET 1 qDay T ERBINAFINE HCL 91540988304 No Longer Active Marcy De La Rosa MD PhD Active CHERATUSSIN AC 100-10 MG/5ML ORAL SYRUP 1 tsp by mouth every 4 hours as needed for cough GUAIFENESIN-CODEINE 55675446673 No Longe r Active Marcy De La Rosa MD PhD Active AVELOX 400 MG ORAL TABLET 1 tab by mouth daily MOXIFLOXACIN HCL 07251010597 No Longer Active Marcy De La Rosa MD PhD Active HYDROCODONE-ACETAMINOPHEN 5-325 MG ORAL TABLET 1 po q 6hr PRN co ugh HYDROCODONE-ACETAMINOPHEN 47809966734 No Longer Active Marcy De La Rosa MD PhD Active PREDNISONE 20 MG ORAL TABLET 2 tabs daily for 3 days, 1 tab daily for 3 days, 1/2 tab daily for 2 days PREDNISONE 20081491963 No Longer Active Carlton Hu MD Active CEFDINIR 300 MG ORAL CAPSULE by mouth twice a day 2011 CEFDINIR 96510063243 No Longer Active Carlton Hu MD Acti ve HYDROCHLOROTHIAZIDE 25 MG ORAL TABLET 1 TAB PO DAILY HYDROCHLOROTHIAZIDE 63225669028 Active Carlton Hu MD A ctive ACETAMINOPHEN-CODEINE #3 300-30 MG ORAL TABLET 1 tablet po q 4-6 hrs prn pain ACETAMINOPHEN-CODEINE 53878538197 No Longer Active Ridge Bess DO Active ZITHROMAX 250 MG ORAL TABLET 2 po today, then 1 po q days 2-5 20 03/07/07 AZITHROMYCIN 62057081814 No Longer Active Carlton Hu MD Active CHERATUSSIN AC 100-10 MG/5ML ORAL SYRUP take 1 tsp po q4-6 h ours prn cough GUAIFENESIN-CODEINE 22734410785 No Longer Active Jayden Hu MD Active ACETAMINOPHEN-CODEINE #3 300-30 MG ORAL TABLET 1 PO Q 4-6 HR PRN PAIN ACETAMINOPHEN-CODEINE 26561074444 No Longer Active Da raimundo Hu MD Active LORTAB 7.5-500 MG/15ML ORAL ELIXIR 7.5 ml po q 4 hour prn cough HYDROCODONE-ACETAMINOPHEN 00107633772 No Longer Active Carlton Hu MD Active PREDNISONE 20 MG ORAL TABLET 1 po bid 3 days, then 1 po q day 3 days PREDNISONE 90425946634 No Longer Active Carlton Hu MD Active CEFDINIR 300 MG ORAL CAPSULE by mouth twice a day 2011 CEFDINIR 04040560161 No Longer Active Carlton Hu MD Acti ve CEFDINIR 300 MG ORAL CAPSULE by mouth twice a day 2010 CEFDINIR 84186826274 No Longer Active Carlton Hu MD Acti ve CEFDINIR 300 MG ORAL CAPSULE by mouth twice a day 2010 CEFDINIR 15594469070 No Longer Active Carlton Hu MD Acti ve TESSALON PERLES 100 MG ORAL CAPSULE 1 tablet by mouth 3 times daily as needed for cough BENZONATATE 05497532592 No Longer Active Carlton Hu MD Active CEFDINIR 300 MG ORAL CAPSULE by mouth twice a day 2010 CEFDINIR 92860998630 No Longer Active Carlton Hu MD Acti ve ZITHROMAX Z-REYNA 250 MG ORAL TABLET 2 today, then 1 daily for 4 d ays AZITHROMYCIN 14661615800 No Longer Active Hugo Restrepo MD Active TESSALON PERLES 100 MG ORAL CAPSULE 1 tablet by mouth 3 times daily as needed for cough TESSALON PERLES 100 MG ORAL CAPSULE 90505 7 BENZONATATE Inactive PREDNISONE 20 MG ORAL TABLET 1 po bid 3 days, then 1 po q day 3 days PREDNISONE 20 MG ORAL TABLET 496230 PREDNISONE Greer ctive LORTAB 7.5-500 MG/15ML ORAL [...] cough CHERATUSSIN AC 100-10 MG/5ML ORAL SYRUP 008216 GUAIFENESIN-CODEINE Inactive ACETAMINOPHEN-CODEINE #3 300-30 MG ORAL TABLET 1 tablet po q 4-6 hrs prn pain ACETAMINOPHEN-CODEINE #3 300-30 MG ORAL TABLET ACETAMINOPHEN-CODEINE Inactive HYDROCODONE-ACETAMINOPHEN 5-325 MG ORAL TABLET 1 po q 6hr PRN co ugh HYDROCODONE-ACETAMINOPHEN 5-325 MG ORAL TABLET 394975 HYDROCODONE-ACETAMINOPHEN Inactive AVELOX 400 MG ORAL TABLET 1 tab by mouth daily AVELOX 400 MG ORAL TABLET 067476 MOXIFLOXACIN HCL Inactive CHERATUSSIN AC 100-10 MG/5ML ORAL SYRUP 1 tsp by mouth every 4 hours as needed for cough CHERATUSSIN AC 100-10 MG/5ML ORAL SYRUP 9 33675 GUAIFENESIN-CODEINE Inactive TERBINAFINE HCL 250 MG ORAL TABLET 1 qDay 07/08 TERBINAFINE HCL 250 MG ORAL TABLET 714651 TERBINAFINE HCL Inactive CHERATUSSIN AC 100-10 MG/5ML ORAL SYRUP 1 tsp by mouth every 4 hours as needed for cough CHERATUSSIN AC 100-10 MG/5ML ORAL SYRUP 9 96653 GUAIFENESIN-CODEINE Inactive ACETAMINOPHEN-CODEINE #3 300-30 MG ORAL TABLET 1 PO Q 4-6 HRS [place] N PAIN ACETAMINOPHEN-CODEINE #3 300-30 MG ORAL TABLET ACETAMINOPHEN-CODEINE Inactive CHERATUSSIN AC 100-10 MG/5ML ORAL SYRUP 1 tsp by mouth every 4 hours as needed for cough CHERATUSSIN AC 100-10 MG/5ML ORAL SYRUP 9 80403 GUAIFENESIN-CODEINE Inactive AUGMENTIN 875-125 MG ORAL TABLET 1 tab by mouth twice daily with food AUGMENTIN 875-125 MG ORAL TABLET AMOXICIL MADELINE-POT CLAVULANATE Inactive CHERATUSSIN AC 100-10 MG/5ML ORAL SYRUP take one tsp po Q 6h ours prn cough CHERATUSSIN AC 100-10 MG/5ML ORAL SYRUP 332766 GUAIFENESIN-CODEINE Inactive PROPRANOLOL HCL 60 MG ORAL TABLET 1 PO Q D PROPRANOLOL HCL 60 MG ORAL TABLET 980991 PROPRANOLOL HCL Inactive TOPAMAX 50 MG ORAL TABLET take 1 tab po BID for migraines. 07/02 TOPAMAX 50 MG ORAL TABLET 919661 TOPIRAMATE Inacti ve TOPAMAX 25 MG ORAL TABLET 1 qHS x 1 week, then 1 BID x 1 week, then 1 qAM and 2 qHS x 1 week, then 2 BID (migraine prevention) TOPAMAX 25 MG ORAL TABLET 405463 TOPIRAMATE Inactive LYRICA 75 MG ORAL CAPSULE TAKE 1 CAPSULE BY MOUTH TWICE DAILY LYRICA 75 MG ORAL CAPSULE PREGABALIN Inactive SYMBICORT 160-4.5 MCG/ACT INHALATION AEROSOL 2 puffs bid wit h rinse after SYMBICORT 160-4.5 MCG/ACT INHALATION AEROSOL BUDESONIDE- FORMOTEROL FUMARATE Inactive PROMETHAZINE-CODEINE 6.25-10 MG/5ML ORAL SYRUP 1 tsp b y mouth every 8 hours prn cough PROMETHAZINE-CODEINE 6.25-10 MG/ 5ML ORAL SYRUP 970118 PROMETHAZINE-CODEINE Inactive CYMBALTA 30 MG ORAL CAPSULE DELAYED RELEASE PARTICLES 1 cap by mouth daily CYMBALTA 30 MG ORAL CAPSULE DELAYED RELE ASE PARTICLES 726134 DULOXETINE HCL Inactive PREMARIN 0.625 MG ORAL TABLET TAKE 1 TAB BY MOUTH DAILY PREMARIN 0.625 MG ORAL TABLET ESTROGENS CONJUGATED Inactive CHERATUSSIN AC 100-10 MG/5ML ORAL SYRUP 1 tsp by mouth every 4 hours as needed for cough CHERATUSSIN AC 100-10 MG/5ML ORAL SYRUP 9 23760 GUAIFENESIN-CODEINE Inactive PROMETHAZINE-CODEINE 6.25-10 MG/5ML ORAL SYRUP 1 tsp b y mouth every 6 hours if needed for cough PROMETHAZINE-CODEINE 6.25-10 MG/5ML ORAL SYRUP 850426 PROMETHAZINE-CODEINE Inactive CHERATUSSIN AC 100-10 MG/5ML ORAL SYRUP 1 tsp by mouth every 4 hours as needed for cough CHERATUSSIN AC 100-10 MG/5ML ORAL SYRUP 9 47020 GUAIFENESIN-CODEINE Inactive FLUTICASONE PROPIONATE 50 MCG/ACT NASAL SUSPENSION 1 t o 2 sprays each nostril daily FLUTICASONE PROPIONATE 50 MCG/AC T NASAL SUSPENSION 4358813 FLUTICASONE PROPIONATE Inactive PREDNISONE 20 MG ORAL TABLET 3 tab PO qd x 2d, 2 tab P O qd x 2d, 1 tab PO qd x 2d, 1/2 tab PO qd x 2d PREDNISONE 20 MG ORAL TAB LET 825922 PREDNISONE Inactive LEVOFLOXACIN 500 MG ORAL TABLET 1 tab PO daily x 10 days LEVOFLOXACIN 500 MG ORAL TABLET 265517 LEVOFLOXACIN Inactive CYCLOBENZAPRINE HCL 10 MG ORAL TABLET 1 tablet by mouth BID prn had pain CYCLOBENZAPRINE HCL 10 MG ORAL TABLET 449988 CYCLOBENZAPRINE HCL Inactive ZOCOR 40 MG ORAL TABLET 1 tab by mouth daily 4 ZOCOR 40 MG ORAL TABLET 552868 SIMVASTATIN Inactive TUSSIONEX PENNKINETIC ER 10-8 MG/5ML [...] FLUTICASONE PROPIO EFE 50 MCG/ACT NASAL SUSPENSION 5560863 FLUTICASONE PROPIONATE Inactive TUSSIONEX PENNKINETIC ER 10-8 [...] three days PREDNISONE 20 MG ORAL TABLET 071997 PREDNIS ONE Inactive PROAIR HFA 108 (90 BASE) MCG/ACT INHALATION AEROSOL SO LUTION 2 puffs four times a day as needed PROAIR HFA 108 (90 B ASE) MCG/ACT INHALATION AEROSOL SOLUTION ALBUTEROL SULFATE Inactive PREDNISONE 20 MG ORAL TABLET two tabs by mouth today, then one tab by mouth days two and three and four PREDNISONE 20 MG ORAL TAB LET 348653 PREDNISONE Inactive TUSSIONEX PENNKINETIC ER 10-8 MG/5ML [...] bid 04/20 TOPAMAX 100 MG ORAL TABLET 138107 TOPIRAMATE Inactive CYMBALTA 30 MG ORAL CAPSULE DELAYED RELEASE PARTICLES 1 cap by mouth daily for depression CYMBALTA 30 MG ORAL CAPSULE DELAYED RELEASE PARTICLES 607511 DULOXETINE HCL Inactive ZITHROMAX Z-REYNA 250 MG ORAL TABLET 2 today, then 1 daily for 4 d ays ZITHROMAX Z-REYNA 250 MG ORAL TABLET 844325 AZITHROMYCIN Inactive CEFDINIR 300 MG ORAL CAPSULE [...] 20 03/07/07 ZITHROMAX 250 MG ORAL TABLET 688173 AZITHROMYCIN Greer ctive CEFDINIR 300 MG ORAL CAPSULE by mouth twice a day 2011 CEFDINIR 300 MG ORAL CAPSULE 846918 CEFDINIR Inactive PREDNISONE 20 MG ORAL TABLET 2 tabs daily for 3 days, 1 tab daily for 3 days, 1/2 tab daily for 2 days PREDNISONE 20 MG ORAL T ABLET 319947 PREDNISONE Inactive AVELOX 400 MG ORAL TABLET 1 tab by mouth daily AVELOX 400 MG ORAL TABLET 415020 MOXIFLOXACIN HCL Inactive AVELOX 400 MG ORAL TABLET 1 tab by mouth daily AVELOX 400 MG ORAL TABLET 460279 MOXIFLOXACIN HCL Inactive PREDNISONE 20 MG ORAL TABLET Take 3 tabs daily for 3 d ays, 2 tabs daily for 3 days, 1 tab daily for 3 days, 1/2 tab daily for 3 days 11/07 PREDNISONE 20 MG ORAL TABLET 241871 PREDNISONE Inactive LEVAQUIN 500 MG ORAL TABLET take one po QD LEVAQUIN 500 MG ORAL TABLET 403979 LEVOFLOXACIN Inactive AZITHROMYCIN 250 MG ORAL TABLET 2 po qd x 1 day, then 1 po q d x 4 days AZITHROMYCIN 250 MG ORAL TABLET 833712 AZITHROMY GIOVANNI Inactive MEDROL 4 MG ORAL TABLET THERAPY PACK 6 tabs on day 1, 5 tabs on day 2, 4 tabs on day 3, 3 tabs on day 4, 2 tabs on day 5, 1 tab on day 6 2013 MEDROL 4 MG ORAL TABLET THERAPY PACK 073250 METHYLPREDNISOLONE [place] ctive CHERATUSSIN AC 100-10 MG/5ML ORAL SYRUP 5ml po q6hr PRN Cough 20 13/04/14 CHERATUSSIN AC 100-10 MG/5ML ORAL SYRUP 398649 GUAIFENE SIN-CODEINE Inactive TRIAMCINOLONE ACETONIDE 0.1 % EXTERNAL CREAM apply three roger es daily prn rash TRIAMCINOLONE ACETONIDE 0.1 % EXTERNAL CREAM 101 4314 TRIAMCINOLONE ACETONIDE Inactive AZITHROMYCIN 250 MG ORAL TABLET 2 po qd x 1 day, then 1 po q d x 4 days AZITHROMYCIN 250 MG ORAL TABLET 090681 AZITHROMY GIOVANNI Inactive MEDROL 4 MG ORAL TABLET THERAPY PACK 6 pills x 1 day, then 5 pills x 1 day then 4 pills x 1 day, then 3 pills x 1 day, then 2 pills x 1 day, then 1 pill x 1 day, then stop MEDROL 4 MG ORAL TABLET THERAPY PACK 097707 METHYLPREDNISOLONE Inactive AMOXICILLIN 500 MG ORAL CAPSULE 1 tab by mouth 3 times daily x 10 days AMOXICILLIN 500 MG ORAL CAPSULE 371024 AMOXICILL IN Inactive AMOXICILLIN 500 MG ORAL CAPSULE 1 tab by mouth 3 times daily x 10 days AMOXICILLIN 500 MG ORAL CAPSULE 259244 AMOXICILL IN Inactive ZITHROMAX 250 MG ORAL TABLET 2 po today, then 1 po q days 2-5 20 12/08/14 ZITHROMAX 250 MG ORAL TABLET [id number] AZITHROMYCIN [place] ctive AUGMENTIN 875-125 MG ORAL TABLET 1 po BID x 10 days 20 13/01/20 AUGMENTIN 875-125 MG ORAL TABLET AMOXICILLIN-POT CLAVULANATE Inactive ZITHROMAX Z-REYNA 250 MG ORAL TABLET 2 today, then 1 daily for 4 d ays ZITHROMAX Z-REYNA 250 MG ORAL TABLET 181110 AZITHROMYCIN Inactive ZITHROMAX 250 MG ORAL TABLET 2 po today, then 1 po q days 2-5 20 14/03/21 ZITHROMAX 250 MG ORAL TABLET 090070 AZITHROMYCIN [place] ctive ZITHROMAX Z-REYNA 250 MG ORAL TABLET 2 today, then 1 daily for 4 d ays ZITHROMAX Z-REYNA 250 MG ORAL TABLET 133394 AZITHROMYCIN Inactive CEFDINIR 300 MG ORAL CAPSULE 1 po BID x 10 days 06/21 CEFDINIR 300 MG ORAL CAPSULE 20020704 CEFDINIR Inactive ZITHROMAX 250 MG ORAL TABLET 2 po today, then 1 po q days 2-5 20 13/08/10 ZITHROMAX 250 MG ORAL TABLET 871200 AZITHROMYCIN [place] ctive LEVAQUIN 500 MG ORAL TABLET 1 tablet by mouth daily 13/09/24 LEVAQUIN 500 MG ORAL TABLET 19971102 LEVOFLOXACIN Inactive SINGULAIR 10 MG ORAL TABLET 1 po qday for allergies 14/01/12 SINGULAIR 10 MG ORAL TABLET 20010504 MONTELUKAST SODIUM Inactive AMOXICILLIN 500 MG ORAL CAPSULE 2 po BID x 10 days 201 09/29/08 AMOXICILLIN 500 MG ORAL CAPSULE 732315 AMOXICILLIN Inactive PREDNISONE 20 MG ORAL TABLET 2 tabs daily for 3 days, 1 tab daily for 3 days, 1/2 tab daily for 2 days PREDNISONE 20 MG ORAL T ABLET 395170 PREDNISONE Inactive ZITHROMAX Z-REYNA 250 MG ORAL TABLET 2 today, then 1 daily for 4 d ays ZITHROMAX Z-REYNA 250 MG ORAL TABLET 218827 AZITHROMYCIN Inactive PREDNISONE 20 MG ORAL TABLET 2 tabs daily for 3 days, 1 tab daily for 3 days, 1/2 tab daily for 2 days PREDNISONE 20 MG ORAL T ABLET 674406 PREDNISONE Inactive ZITHROMAX 250 MG ORAL TABLET 2 po today, then 1 po q days 2-5 20 14/09/04 ZITHROMAX 250 MG ORAL TABLET 779487 AZITHROMYCIN [place] ctive AMOXICILLIN 500 MG ORAL CAPSULE 1 cap by mouth three times a day AMOXICILLIN 500 MG ORAL CAPSULE 557371 AMOXICILLIN Inactive TERBINAFINE HCL 250 MG ORAL TABLET 1 qDay for nail fungus 7 TERBINAFINE HCL 250 MG ORAL TABLET 522042 TERBINAFINE HCL Inact nael AUGMENTIN 875-125 MG ORAL TABLET 1 po BID x 10 days 20 16/03/22 AUGMENTIN 875-125 MG ORAL TABLET AMOXICILLIN-POT CLAVULANATE Inactive PREDNISONE 20 MG ORAL TABLET 2 po qd x 5 days PREDNISONE 20 MG ORAL TABLET 135494 PREDNISONE Inactive AZITHROMYCIN 250 MG ORAL TABLET 2 po qd x 1 day, then 1 po q d x 4 days AZITHROMYCIN 250 MG ORAL TABLET 751206 AZITHROMY GIOVANNI Inactive PREDNISONE 50 MG ORAL TABLET Take 50 mg dialy for 6 day s 7 PREDNISONE 50 MG ORAL TABLET 773898 PREDNISONE Inactive AUGMENTIN 875-125 MG ORAL TABLET 1 po BID x 10 days 18/04/16 AUGMENTIN 875-125 MG ORAL TABLET AMOXICILLIN-POT CLAVULANATE Inactive DOXYCYCLINE HYCLATE 100 MG ORAL CAPSULE 1 cap by mouth twice latasha ly DOXYCYCLINE HYCLATE 100 MG ORAL CAPSULE 3972412 DOXYCYCL INE HYCLATE Inactive PREDNISONE 20 MG ORAL TABLET Take 2 tabs day 1 and 2 and 1 t ab days 3 and 4 PREDNISONE 20 MG ORAL TABLET 356142 PREDNISONE Inactive Vital Signs Date Name Value [...] - Chem istry sodium, serum 139 mmol/L 963-185 1514/10/12 potassium, serum 3.8 mmol/L 3.5-5.2 chloride, serum [...] negative Encounters Code Encounter Date Provider Facility CPT-54189 Level 3 Est. Patient 16:08:07 CDT David lion [facility] CPT-51299 Level 3 Est. Patient 16:53:54 CDT May haas MD [facility] CPT-42460 [id number] Vst-Est Level IV 08:41:[address] Carlton Hu MD [facility] CPT-91288 Level 3 Est. Patient 09:46:49 INCOMING INSPECTOR David lion [facility] CPT-43687 [id number] Vst-Est Level III 11:12:16 CDT Yanet Bess DO [facility] CPT-17645 Level 3 Est. Patient 11:34:49 INCOMING INSPECTOR Perez Mora MD [facility] CPT-32615 Level 4 Est. Patient 09:51:32 INCOMING INSPECTOR Carlton rich MD [facility] CPT-80106 Level 3 Est. Patient 10:26:00 INCOMING INSPECTOR Elise stephenson [facility] CPT-06350 Level 3 Est. Patient 13:35:41 INCOMING INSPECTOR Carlton rich MD [facility] CPT-22459 Level 3 Est. Patient 10:03:52 INCOMING INSPECTOR Carlton rich MD [facility] CPT-37755 Level 3 Est. Patient 12:17:50 CDT Hugo Restrepo MD [facility] CPT-24657 Level 3 Est. Patient 13:42:38 CDT Elise stephenson [facility] CPT-35829 Level 3 Est. Patient 13:23:51 CDT Diya cobian [facility] CPT-84166 Level 3 Est. Patient 14:22:19 INCOMING INSPECTOR Diya cobian [facility] CPT-99132 Level 3 Est. Patient 10:11:46 CDT Carlton rich MD [facility] CPT-05958 Level 3 Est. Patient 17:29:43 CDT Elise Are ll [employer] [facility] CPT-96030 Level 3 Est. Patient 11:58:06 CDT Elise Are ll [facility] CPT-71858 Level 4 Est. Patient 14:36:51 CDT Carlton rich MD [facility] CPT-06942 Level 3 Est. Patient 18:16:00 INCOMING INSPECTOR Blaine Freeman [facility] CPT-59683 Level 3 Est. Patient 09:45:49 INCOMING INSPECTOR Carlton rich MD [facility] CPT-03340 Level 3 Est. Patient 13:19:20 CDT Carlton rich MD [facility] CPT-70354 Level 3 Est. Patient 13:06:43 CDT Ridge tam DO [facility] CPT-18610 Level 3 Est. Patient 10:03:07 CDT Perez Mora MD [facility] CPT-53799 Level 3 Est. Patient 19:50:35 INCOMING INSPECTOR Carlton rich MD [facility] CPT-92552 Level 4 Est. Patient 18:05:01 INCOMING INSPECTOR Carlton rich MD [facility] CPT-11089 Level 3 Est. Patient 10:45:55 INCOMING INSPECTOR Hugo Restrepo MD [facility] CPT-12920 Level 3 Est. Patient 14:12:49 CDT Griffin lincoln [facility] CPT-36533 Level 3 Est. Patient 17:37:24 CDT Carlton rich MD [facility] CPT-74079 Level 3 Est. Patient 16:51:54 CDT Carlton rich MD [facility] CPT-92723 Level 3 Est. Patient 12:18:11 CDT Hugo Restrepo MD [facility] CPT-11452 Level 3 Est. Patient 11:30:25 CDT Marcy crisostomo MD PhD [facility] CPT-89846 Level 3 Est. Patient 12:00:47 INCOMING INSPECTOR Carlton rich MD [facility] CPT-32760 Level 3 Est. Patient 16:31:06 INCOMING INSPECTOR Carlton rich MD [facility] CPT-63366 Level 3 Est. Patient 16:23:24 INCOMING INSPECTOR Ridge tam [facility] CPT-03808 Level 3 Est. Patient 12:34:12 CDT Carlton rich MD [facility] CPT-51648 Level 2 Est. Patient 15:43:33 CDT Robi armstrong MD [facility] CPT-34609 Level 4 Est. Patient 14:04:44 CDT Carlton rich MD [facility] CPT-81534 Level 3 Est. Patient 05:47:59 CDT Ridge tam [facility] CPT-09022 Level 3 Est. Patient 13:12:53 INCOMING INSPECTOR Carlton rich MD [facility] CPT-44619 Level 3 Est. Patient 14:26:53 CDT Hugo [...] CPT-J1100 Decadron 6mg (Dexamethasone) 14:32:13 CDT 2 CPT-04652 Hip bilat min 2V w AP pelvis 13:16:20 CDT 2 CPT-75657 Pelvis only 13:07:33 CDT CPT-20776 Spec Collection and Handling Fee 11:25:12 C DT CPT-37197 Fluzone Quadrivalent Intramuscular Suspe nsion 0.5 ML 14:31:55 CDT CPT-57299 Abx/Therapy Injection 13:28:47 INCOMING INSPECTOR CPT-J2930 Solu Medrol 125 mg (Methyl Prednisolone Sodium Succinate) 12:00:47 INCOMING INSPECTOR CPT-88038 Venipuncture Draw Fee 11:33:31 CDT CPT-37238 EKG Trac and Interp 11:21:09 CDT CPT-32824 Chest 2V Frontal and Lat 11:21:09 CDT 12/15 CPT-37866 Venipuncture Draw Fee 08:02:34 CDT CPT-22278 Chest 2V Frontal and Lat 05:47:59 CDT 06/05
--- OUTSIDE RECORDS SUMMARY | 2019-10-08 08:58 | XMS REPORT | Clinical Summary ---
Author Author Caitlin, Juliana Martinez Organization [facility] [facility] [facility] Address Unknown Phone Unavailable Allergies, [...] URI 465.9 Inactive Ridge Bess DO Ac [place] upper respiratory infections of unspecified site Body [...] site Obesity Class I (BMI 30-34.9) Refinement oJse Torres RN Obesity, unspecified Morbid obesity due [...] 201 12/06/23 David Lopes APRN Acute pharyngitis BRONCHITIS, ACUTE WITH MILD BRONCHOSPASM ICD-466.0 Inactive Maryc De La Rosa MD PhD DYSPNEA ICD-786.05 [...] Inactive Marcy De La Rosa MD PhD BRONCHITIS ICD-490 Inactive Hugo Restrepo MD 201 04/09/17 SINUSITIS, ACUTE ICD-461.9 Inactive Hugo dominguez MD Pelvic pain, acute ICD-789.09 Inactive Hugo Restrepo MD Bronchitis-Acute ICD-466.0 Inactive Hugo dominguez MD URI - acute ICD-465.9 Inactive Hugo Restrepo MD Pharyngitis acute ICD-462 Inactive Hugo gore MD Sinusitis ICD-473.9 Inactive Hugo Restrepo MD [...] for up 2 weeks TRIAMCINOLONE ACETON KAYLA [id number] Active David Marianne HOME HEALTH ADMINISTRATOR Active AMOXICILLIN 500 MG ORAL CAPSULE 1 cap by mouth twice daily 10/21 AMOXICILLIN 90001710283 Active David Marianne HOME HEALTH ADMINISTRATOR Activ e ELMIRON 100 MG ORAL CAPSULE 2 capsules in the morning and 1 capsule at night PENTOSAN POLYSULFATE SODIUM 03705122722 Active 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 CYMBALTA 30 MG ORAL CAPSULE DELAYED RELEASE PARTICLES 1 cap by mouth daily for depression DULOXETINE HCL 14856005934 No Longer Active Carlton Hu MD Active CYMBALTA 60 MG ORAL CAPSULE DELAYED RELEASE PARTICLES 1 cap by mouth daily for mood and pain DULOXETINE HCL 00861981658 Active Carlton Hu MD Active TUSSIONEX PENNKINETIC ER 10-8 MG/5ML ORAL SUSPENSION E XTENDED RELEASE 5ml po q12hr PRN Cough HYDROCOD POLST-CHLORPHEN POLST 55484288718 Active David Marianne HOME HEALTH ADMINISTRATOR Active PREDNISONE 20 MG ORAL TABLET Take 2 tabs day 1 and 2 and 1 t ab days 3 and 4 PREDNISONE 87997365069 No Longer Active David Marianne HOME HEALTH ADMINISTRATOR Active DOXYCYCLINE HYCLATE 100 MG ORAL CAPSULE 1 cap by mouth twice latasha ly DOXYCYCLINE HYCLATE 04322788863 No Longer Active David Marianne HOME HEALTH ADMINISTRATOR Active TOPAMAX 100 MG ORAL TABLET Take 1 tablet po bid TOPIRAMATE 77148670621 No Longer Active David Marianne HOME HEALTH ADMINISTRATOR Active TUSSIONEX PENNKINETIC ER 10-8 MG/5ML ORAL SUSPENSION E XTENDED RELEASE 5ml po q12hr PRN Cough HYDROCOD POLST-CHLORPHEN POLST 5 2726472922 No Longer Active David Marianne HOME HEALTH ADMINISTRATOR Active AUGMENTIN 875-125 MG ORAL TABLET 1 po BID x 10 days 18/04/16 AMOXICILLIN-POT CLAVULANATE 23474583331 No Longer Active David Lopes APRN Active PREDNISONE 50 MG ORAL TABLET Take 50 mg dialy for 6 day s 7 PREDNISONE 69163123731 No Longer Active David Marianne HOME HEALTH ADMINISTRATOR Active TUSSIONEX PENNKINETIC ER 10-8 MG/5ML ORAL SUSPENSION E XTENDED RELEASE 5ml po q12hr PRN Cough HYDROCOD POLST-CHLORPHEN POLST 5 7925003340 No Longer Active Cherelle Torres RN Active PREDNISONE 20 MG ORAL TABLET two tabs by mouth today, then one tab by mouth days two and three and four PREDNISONE 62387382352 No Lo nger Active Cherelle Torres RN Active AZITHROMYCIN 250 MG ORAL TABLET 2 po qd x 1 day, then 1 po q d x 4 days AZITHROMYCIN 78037758461 No Longer Active Ridge Bess DO Active PREDNISONE 20 MG ORAL TABLET 2 po qd x 5 days P REDNISONE 89670393185 No Longer Active Perez Mora MD Active PROAIR HFA 108 (90 BASE) MCG/ACT INHALATION AEROSOL SO LUTION 2 puffs four times a day as needed ALBUTEROL SULFATE 37893783806 No Long er Active Becky FUENTES Active ASPIRIN 81 MG ORAL TABLET 1 po qd ASPIRIN 55204071437 Active Carlton Hu MD Active PREDNISONE 20 MG ORAL TABLET 1 tab twice daily for 3 d ay, then one daily for three days PREDNISONE 24579596308 No Longer Active Carlton Hu MD Active AUGMENTIN 875-125 MG ORAL TABLET 1 po BID x 10 days 20 16/03/22 AMOXICILLIN-POT CLAVULANATE 63515444462 No Longer Active Elise Garcia APRN Active TERBINAFINE HCL 250 MG ORAL TABLET 1 qDay for nail fungus 7 TERBINAFINE HCL 40387755724 No Longer Active Carlton Hu MD A ctive AMOXICILLIN 500 MG ORAL CAPSULE 1 cap by mouth three times a day AMOXICILLIN 29420028607 No Longer Active Carlton Hu MD Active ELMIRON 100 MG ORAL CAPSULE 2 tablets in the am and 1 tablet at hs PENTOSAN POLYSULFATE SODIUM 06313061354 No Longer Active Robert jade Hu MD Active MUCINEX D 60-600 MG ORAL TABLET EXTENDED RELEASE 12 HOUR 1 t ab po q am PSEUDOEPHEDRINE-GUAIFENESIN 18764658553 No Longer Act nael Carlton Hu MD Active MUCINEX DM MAXIMUM STRENGTH 60-1200 MG ORAL TABLET EXT ENDED RELEASE 12 HOUR 1 tab po q am DEXTROMETHORPHAN-GUAIFENESIN 77339826164 No Longer Active Carlton Hu MD Active TUSSIONEX PENNKINETIC ER 10-8 MG/5ML ORAL SUSPENSION E XTENDED RELEASE 5ml po q12hr PRN Cough HYDROCOD POLST-CHLORPHEN POLST 5 6221475532 No Longer Active Carlton Hu MD Active POTASSIUM CHLORIDE ER 20 MEQ ORAL TABLET EXTENDED RELE ASE Take 1 by mouth 4 times daily for 7 days POTASSIUM CHLORIDE 08228783840 No Longer Active Carlton Hu MD Active ZITHROMAX 250 MG ORAL TABLET 2 po today, then 1 po q days 2-5 14/09/04 AZITHROMYCIN 52814368018 No Longer Active Elise Garcia APRN Active TUSSIONEX PENNKINETIC ER 10-8 MG/5ML ORAL SUSPENSION E XTENDED RELEASE 5 ml twice a day as needed for cough HYDROCOD POLST-CHLORPH EN POLST 54519803827 No Longer Active Elise Garcia APRN Active MONTELUKAST SODIUM 10 MG ORAL TABLET 1 po daily for Allergy MONTELUKAST SODIUM 52583770449 Active Carlton Hu MD Ac tive TUSSIONEX PENNKINETIC ER 10-8 MG/5ML ORAL SUSPENSION E XTENDED RELEASE 5ml po q12hr PRN Cough HYDROCOD POLST-CHLORPHEN POLST 5 2936322827 No Longer Active Hugo Restrepo MD Active GABAPENTIN 100 MG ORAL CAPSULE 1 po BID for fibromyalgia GABAPENTIN 07984460222 Active ALFREDO Holly Active LYRICA 100 MG ORAL CAPSULE Take 1 tab po BID for fibromyalgia 20 11/08/21 PREGABALIN 96436843227 No Longer Active Elise Garcia APRN A ctive PREDNISONE 20 MG ORAL TABLET 2 tabs daily for 3 days, 1 tab daily for 3 days, 1/2 tab daily for 2 days PREDNISONE 35783714966 No Longer Active Jillina Frazell HOME HEALTH ADMINISTRATOR Active TUSSIONEX PENNKINETIC ER 10-8 MG/5ML ORAL SUSPENSION E XTENDED RELEASE 5 mL PO q 12 hrs PRN cough HYDROCOD POLST-CHLORPHEN POLST 823523 20684 No Longer Active Jillina Frazell HOME HEALTH ADMINISTRATOR Active FLUTICASONE PROPIONATE 50 MCG/ACT NASAL SUSPENSION 2 s prays each nostril daily until bottle is empty FLUTICASONE PROPIONATE 863959886 99 No Longer Active Jillina Frazell HOME HEALTH ADMINISTRATOR Active ASMANEX 60 METERED DOSES 220 MCG/INH INHALATION AEROSO L POWDER BREATH ACTIVATED 1 puff bid with rinse after MOMETASONE FUROATE 4457415 4102 No Longer Active Jillina Frazell HOME HEALTH ADMINISTRATOR Active ZITHROMAX Z-REYNA 250 MG ORAL TABLET 2 today, then 1 daily for 4 d ays AZITHROMYCIN 14820316174 No Longer Active Elise Garcia HOME HEALTH ADMINISTRATOR Active TUSSIONEX PENNKINETIC ER 10-8 MG/5ML ORAL SUSPENSION E XTENDED RELEASE 5ml po q12hr PRN Cough HYDROCOD POLST-CHLORPHEN POLST 5 1242303002 No Longer Active Elise Garcia HOME HEALTH ADMINISTRATOR Active PREDNISONE 20 MG ORAL TABLET 2 tabs daily for 3 days, 1 tab daily for 3 days, 1/2 tab daily for 2 days PREDNISONE 95415215092 No Longer Active Jillina Frazell HOME HEALTH ADMINISTRATOR Active AMOXICILLIN 500 MG ORAL CAPSULE 2 po BID x 10 days 201 09/29/08 AMOXICILLIN 57078544022 No Longer Active Diya De Guzman HOME HEALTH ADMINISTRATOR Act nael SINGULAIR 10 MG ORAL TABLET 1 po qday for allergies 14/01/12 MONTELUKAST SODIUM 90100524839 No Longer Active Carlton Hu MD Active LEVAQUIN 500 MG ORAL TABLET 1 tablet by mouth daily 13/09/24 LEVOFLOXACIN 76491949680 No Longer Active Carlton Hu MD Acti ve FLUTICASONE PROPIONATE 50 MCG/ACT NASAL SUSPENSION 2 s prays each nostril daily for 2 weeks, then 1 spray each nostril daily. FLUTICASONE PROPIONATE 94299685929 Active Carlton Hu MD Active ZITHROMAX 250 MG ORAL TABLET 2 po today, then 1 po q days 2-5 20 13/08/10 AZITHROMYCIN 05054598014 No Longer Active Elise Garcia HOME HEALTH ADMINISTRATOR Active XANAX 0.5 MG ORAL TABLET one tablet by mouth daily prn anxiety 2015 ALPRAZOLAM 67931329405 Active ALFREDO Holly Active CEFDINIR 300 MG ORAL CAPSULE 1 po BID x 10 days CEFDINIR 84502247795 No Longer Active Carlton Hu MD Active ZOCOR 40 MG ORAL TABLET 1 tab by mouth daily SI MVASTATIN 98442133881 No Longer Active Carlton Hu MD Active CYCLOBENZAPRINE HCL 10 MG ORAL TABLET 1 tablet by mouth BID prn had pain CYCLOBENZAPRINE HCL 61700961092 No Longer Active Jayden Hu MD Active LEVOFLOXACIN 500 MG ORAL TABLET 1 tab PO daily x 10 days LEVOFLOXACIN 60717414221 No Longer Active Carlton Hu MD Acti ve PREDNISONE 20 MG ORAL TABLET 3 tab PO qd x 2d, 2 tab P O qd x 2d, 1 tab PO qd x 2d, 1/2 tab PO qd x 2d PREDNISONE 27089439147 No Lo nger Active Carlton Hu MD Active FLUTICASONE PROPIONATE 50 MCG/ACT NASAL SUSPENSION 1 t o 2 sprays each nostril daily FLUTICASONE PROPIONATE 07697793361 No Longer Ac tive Blaine HERNANDEZ Active CHERATUSSIN AC 100-10 MG/5ML ORAL SYRUP 1 tsp by mouth every 4 hours as needed for cough GUAIFENESIN-CODEINE 04896861362 No Longe r Active Blaine HERNANDEZ Active PROMETHAZINE-CODEINE 6.25-10 MG/5ML ORAL SYRUP 1 tsp b y mouth every 6 hours if needed for cough PROMETHAZINE-CODEINE 19078490036 No Longer Active Blaine HERNANDEZ Active CHERATUSSIN AC 100-10 MG/5ML ORAL SYRUP 1 tsp by mouth every 4 hours as needed for cough GUAIFENESIN-CODEINE 86877405169 No Longe r Active Blaine HERNANDEZ Active ZITHROMAX Z-REYNA 250 MG ORAL TABLET 2 today, then 1 daily for 4 d ays AZITHROMYCIN 18459719803 No Longer Active Columba Raida Act nael ZITHROMAX 250 MG ORAL TABLET 2 po today, then 1 po q days 2-5 20 14/03/21 AZITHROMYCIN 02008588279 No Longer Active Carlton Hu MD Active ZITHROMAX Z-REYNA 250 MG ORAL TABLET 2 today, then 1 daily for 4 d ays AZITHROMYCIN 23782820428 No Longer Active Columba Raida Act nael AUGMENTIN 875-125 MG ORAL TABLET 1 po BID x 10 days 13/01/20 AMOXICILLIN-POT CLAVULANATE 48034908654 No Longer Active Diya De Guzman APRN Active ZITHROMAX 250 MG ORAL TABLET 2 po today, then 1 po q days 2-5 20 12/08/14 AZITHROMYCIN 61974446402 No Longer Active Carlton Hu MD Active TRAMADOL HCL 50 MG ORAL TABLET 1 po tid with ES Tylenol TRAMADOL HCL 97309457562 Active Carlton Hu MD Active PREMARIN 0.625 MG ORAL TABLET TAKE 1 TAB BY MOUTH DAILY ESTROGENS CONJUGATED 48356128938 No Longer Active Ridge Bess DO A ctive CYMBALTA 30 MG ORAL CAPSULE DELAYED RELEASE PARTICLES 1 cap by mouth daily DULOXETINE HCL 06053392001 No Longer Active Ridge Ya ee DO Active AMOXICILLIN 500 MG ORAL CAPSULE 1 tab by mouth 3 times daily x 10 days AMOXICILLIN 78314522609 No Longer Active Carlton bustamante MD Active AMOXICILLIN 500 MG ORAL CAPSULE 1 tab by mouth 3 times daily x 10 days AMOXICILLIN 79989726976 No Longer Active Carlton bustamante MD Active PROMETHAZINE-CODEINE 6.25-10 MG/5ML ORAL SYRUP 1 tsp b y mouth every 8 hours prn cough PROMETHAZINE-CODEINE 70334397292 No Longer Acti ve Carlton Hu MD Active MEDROL 4 MG ORAL TABLET THERAPY PACK 6 pills x 1 day, then 5 pills x 1 day then 4 pills x 1 day, then 3 pills x 1 day, then 2 pills x 1 day, then 1 pill x 1 day, then stop METHYLPREDNISOLONE 20184529214 No Long er Active Perez Mora MD Active AZITHROMYCIN 250 MG ORAL TABLET 2 po qd x 1 day, then 1 po q d x 4 days AZITHROMYCIN 88722210428 No Longer Active Perez Ambriz MD Active SYMBICORT 160-4.5 MCG/ACT INHALATION AEROSOL 2 puffs bid wit h rinse after BUDESONIDE-FORMOTEROL FUMARATE 01630542784 N o Longer Active Perez Mora MD Active LYRICA 75 MG ORAL CAPSULE TAKE 1 CAPSULE BY MOUTH TWICE DAILY PREGABALIN 82873538913 No Longer Active Carlton Hu MD Acti ve TOPAMAX 25 MG ORAL TABLET 1 qHS x 1 week, then 1 BID x 1 week, then 1 qAM and 2 qHS x 1 week, then 2 BID (migraine prevention) T OPIRAMATE 26238974540 No Longer Active Jerica FUENTES Active TOPAMAX 50 MG ORAL TABLET take 1 tab po BID for migraines. 07/02 TOPIRAMATE 03324926391 No Longer Active Jerica FUENTES Active TRIAMCINOLONE ACETONIDE 0.1 % EXTERNAL CREAM apply three roger es daily prn rash TRIAMCINOLONE ACETONIDE 43534067645 No Longer Active Carlton Hu MD Active PAXIL 40 MG ORAL TABLET take 1 tab po qday for depression 0 PAROXETINE HCL 51795898381 Active Carlton Hu MD Active CHERATUSSIN AC 100-10 MG/5ML ORAL SYRUP 5ml po q6hr PRN Cough 20 13/04/14 GUAIFENESIN-CODEINE 80083450151 No Longer Active Carlton Hu MD Active MEDROL 4 MG ORAL TABLET THERAPY PACK 6 tabs on day 1, 5 tabs on day 2, 4 tabs on day 3, 3 tabs on day 4, 2 tabs on day 5, 1 tab on day 6 2013 METHYLPREDNISOLONE 86980655085 No Longer Active Perez Mora MD Active AZITHROMYCIN 250 MG ORAL TABLET 2 po qd x 1 day, then 1 po q d x 4 days AZITHROMYCIN 80164633317 No Longer Active Perez Ambriz MD Active PROPRANOLOL HCL 60 MG ORAL TABLET 1 PO Q D PROPRANOLOL HCL 10130075599 No Longer Active Perez Mora MD Activ e CHERATUSSIN AC 100-10 MG/5ML ORAL SYRUP take one tsp po Q 6h ours prn cough GUAIFENESIN-CODEINE 92181886114 No Longer Active Zia Mora MD Active AUGMENTIN 875-125 MG ORAL TABLET 1 tab by mouth twice daily with food AMOXICILLIN-POT CLAVULANATE 12372702517 No Longer Act nael Perez Mora MD Active CHERATUSSIN AC 100-10 MG/5ML ORAL SYRUP 1 tsp by mouth every 4 hours as needed for cough GUAIFENESIN-CODEINE 30809546566 No Longe r Active Hugo Restrepo MD Active ACETAMINOPHEN-CODEINE #3 300-30 MG ORAL TABLET 1 PO Q 4-6 HRS W[place] N PAIN ACETAMINOPHEN-CODEINE 06054103640 No Longer Active Hugo Restrepo MD Active LEVAQUIN 500 MG ORAL TABLET take one po QD LEVO FLOXACIN 65999551489 No Longer Active Griffin HERNANDEZ Active PREDNISONE 20 MG ORAL TABLET Take 3 tabs daily for 3 d ays, 2 tabs daily for 3 days, 1 tab daily for 3 days, 1/2 tab daily for 3 days 11/07 PREDNISONE 92955758201 No Longer Active Carlton Hu MD Acti ve AVELOX 400 MG ORAL TABLET 1 tab by mouth daily MOXIFLOXACIN HCL 56259313764 No Longer Active Carlton Hu MD Active CHERATUSSIN AC 100-10 MG/5ML ORAL SYRUP 1 tsp by mouth every 4 hours as needed for cough GUAIFENESIN-CODEINE 59195203138 No Longe r Active Hugo Restrepo MD Active AVELOX 400 MG ORAL TABLET 1 tab by mouth daily MOXIFLOXACIN HCL 90877830180 No Longer Active Marcy De La Rosa MD PhD Active TERBINAFINE HCL 250 MG ORAL TABLET 1 qDay T ERBINAFINE HCL 41365892456 No Longer Active Marcy De La Rosa MD PhD Active CHERATUSSIN AC 100-10 MG/5ML ORAL SYRUP 1 tsp by mouth every 4 hours as needed for cough GUAIFENESIN-CODEINE 70132570972 No Longe r Active Marcy De La Rosa MD PhD Active AVELOX 400 MG ORAL TABLET 1 tab by mouth daily MOXIFLOXACIN HCL 84588018844 No Longer Active Marcy De La Rosa MD PhD Active HYDROCODONE-ACETAMINOPHEN 5-325 MG ORAL TABLET 1 po q 6hr PRN co ugh HYDROCODONE-ACETAMINOPHEN 75845801183 No Longer Active Marcy De La Rosa MD PhD Active PREDNISONE 20 MG ORAL TABLET 2 tabs daily for 3 days, 1 tab daily for 3 days, 1/2 tab daily for 2 days PREDNISONE 34765024459 No Longer Active Carlton Hu MD Active CEFDINIR 300 MG ORAL CAPSULE by mouth twice a day 2011 CEFDINIR 17711155535 No Longer Active Carlton Hu MD Acti ve HYDROCHLOROTHIAZIDE 25 MG ORAL TABLET 1 TAB PO DAILY HYDROCHLOROTHIAZIDE 35388323378 Active Carlton Hu MD A ctive ACETAMINOPHEN-CODEINE #3 300-30 MG ORAL TABLET 1 tablet po q 4-6 hrs prn pain ACETAMINOPHEN-CODEINE 28239832316 No Longer Active Ridge Bess DO Active ZITHROMAX 250 MG ORAL TABLET 2 po today, then 1 po q days 2-5 20 03/07/07 AZITHROMYCIN 58941936432 No Longer Active Carlton Hu MD Active CHERATUSSIN AC 100-10 MG/5ML ORAL SYRUP take 1 tsp po q4-6 h ours prn cough GUAIFENESIN-CODEINE 42586318022 No Longer Active Jayden Hu MD Active ACETAMINOPHEN-CODEINE #3 300-30 MG ORAL TABLET 1 PO Q 4-6 HR PRN PAIN ACETAMINOPHEN-CODEINE 79520392812 No Longer Active Da raimundo Hu MD Active LORTAB 7.5-500 MG/15ML ORAL ELIXIR 7.5 ml po q 4 hour prn cough HYDROCODONE-ACETAMINOPHEN 51936121822 No Longer Active Carlton Hu MD Active PREDNISONE 20 MG ORAL TABLET 1 po bid 3 days, then 1 po q day 3 days PREDNISONE 70443685745 No Longer Active Carlton Hu MD Active CEFDINIR 300 MG ORAL CAPSULE by mouth twice a day 2011 CEFDINIR 12230913597 No Longer Active Carlton Hu MD Acti ve CEFDINIR 300 MG ORAL CAPSULE by mouth twice a day 2010 CEFDINIR 29435946667 No Longer Active Carlton Hu MD Acti ve CEFDINIR 300 MG ORAL CAPSULE by mouth twice a day 2010 CEFDINIR 24855612058 No Longer Active Carlton Hu MD Acti ve TESSALON PERLES 100 MG ORAL CAPSULE 1 tablet by mouth 3 times daily as needed for cough BENZONATATE 69073393769 No Longer Active Carlton Hu MD Active CEFDINIR 300 MG ORAL CAPSULE by mouth twice a day 2010 CEFDINIR 52256126373 No Longer Active Carlton Hu MD Acti ve ZITHROMAX Z-REYNA 250 MG ORAL TABLET 2 today, then 1 daily for 4 d ays AZITHROMYCIN 00509787003 No Longer Active Hugo Restrepo MD Active TESSALON PERLES 100 MG ORAL CAPSULE 1 tablet by mouth 3 times daily as needed for cough TESSALON PERLES 100 MG ORAL CAPSULE 86403 7 BENZONATATE Inactive PREDNISONE 20 MG ORAL TABLET 1 po bid 3 days, then 1 po q day 3 days PREDNISONE 20 MG ORAL TABLET 369283 PREDNISONE Greer ctive LORTAB 7.5-500 MG/15ML ORAL [...] cough CHERATUSSIN AC 100-10 MG/5ML ORAL SYRUP 235386 GUAIFENESIN-CODEINE Inactive ACETAMINOPHEN-CODEINE #3 300-30 MG ORAL TABLET 1 tablet po q 4-6 hrs prn pain ACETAMINOPHEN-CODEINE #3 300-30 MG ORAL TABLET ACETAMINOPHEN-CODEINE Inactive HYDROCODONE-ACETAMINOPHEN 5-325 MG ORAL TABLET 1 po q 6hr PRN co ugh HYDROCODONE-ACETAMINOPHEN 5-325 MG ORAL TABLET 823202 HYDROCODONE-ACETAMINOPHEN Inactive AVELOX 400 MG ORAL TABLET 1 tab by mouth daily AVELOX 400 MG ORAL TABLET 005719 MOXIFLOXACIN HCL Inactive CHERATUSSIN AC 100-10 MG/5ML ORAL SYRUP 1 tsp by mouth every 4 hours as needed for cough CHERATUSSIN AC 100-10 MG/5ML ORAL SYRUP 9 15089 GUAIFENESIN-CODEINE Inactive TERBINAFINE HCL 250 MG ORAL TABLET 1 qDay 07/08 TERBINAFINE HCL 250 MG ORAL TABLET 843198 TERBINAFINE HCL Inactive CHERATUSSIN AC 100-10 MG/5ML ORAL SYRUP 1 tsp by mouth every 4 hours as needed for cough CHERATUSSIN AC 100-10 MG/5ML ORAL SYRUP 9 16997 GUAIFENESIN-CODEINE Inactive ACETAMINOPHEN-CODEINE #3 300-30 MG ORAL TABLET 1 PO Q 4-6 HRS WV N PAIN ACETAMINOPHEN-CODEINE #3 300-30 MG ORAL TABLET ACETAMINOPHEN-CODEINE Inactive CHERATUSSIN AC 100-10 MG/5ML ORAL SYRUP 1 tsp by mouth every 4 hours as needed for cough CHERATUSSIN AC 100-10 MG/5ML ORAL SYRUP 9 16626 GUAIFENESIN-CODEINE Inactive AUGMENTIN 875-125 MG ORAL TABLET 1 tab by mouth twice daily with food AUGMENTIN 875-125 MG ORAL TABLET AMOXICIL MADELINE-POT CLAVULANATE Inactive CHERATUSSIN AC 100-10 MG/5ML ORAL SYRUP take one tsp po Q 6h ours prn cough CHERATUSSIN AC 100-10 MG/5ML ORAL SYRUP 170820 GUAIFENESIN-CODEINE Inactive PROPRANOLOL HCL 60 MG ORAL TABLET 1 PO Q D PROPRANOLOL HCL 60 MG ORAL TABLET 360557 PROPRANOLOL HCL Inactive TOPAMAX 50 MG ORAL TABLET take 1 tab po BID for migraines. 07/02 TOPAMAX 50 MG ORAL TABLET 616953 TOPIRAMATE Inacti ve TOPAMAX 25 MG ORAL TABLET 1 qHS x 1 week, then 1 BID x 1 week, then 1 qAM and 2 qHS x 1 week, then 2 BID (migraine prevention) TOPAMAX 25 MG ORAL TABLET 914534 TOPIRAMATE Inactive LYRICA 75 MG ORAL CAPSULE TAKE 1 CAPSULE BY MOUTH TWICE DAILY LYRICA 75 MG ORAL CAPSULE PREGABALIN Inactive SYMBICORT 160-4.5 MCG/ACT INHALATION AEROSOL 2 puffs bid wit h rinse after SYMBICORT 160-4.5 MCG/ACT INHALATION AEROSOL BUDESONIDE- FORMOTEROL FUMARATE Inactive PROMETHAZINE-CODEINE 6.25-10 MG/5ML ORAL SYRUP 1 tsp b y mouth every 8 hours prn cough PROMETHAZINE-CODEINE 6.25-10 MG/ 5ML ORAL SYRUP 100297 PROMETHAZINE-CODEINE Inactive CYMBALTA 30 MG ORAL CAPSULE DELAYED RELEASE PARTICLES 1 cap by mouth daily CYMBALTA 30 MG ORAL CAPSULE DELAYED RELE ASE PARTICLES 336124 DULOXETINE HCL Inactive PREMARIN 0.625 MG ORAL TABLET TAKE 1 TAB BY MOUTH DAILY PREMARIN 0.625 MG ORAL TABLET ESTROGENS CONJUGATED Inactive CHERATUSSIN AC 100-10 MG/5ML ORAL SYRUP 1 tsp by mouth every 4 hours as needed for cough CHERATUSSIN AC 100-10 MG/5ML ORAL SYRUP 9 52593 GUAIFENESIN-CODEINE Inactive PROMETHAZINE-CODEINE 6.25-10 MG/5ML ORAL SYRUP 1 tsp b y mouth every 6 hours if needed for cough PROMETHAZINE-CODEINE 6.25-10 MG/5ML ORAL SYRUP 422444 PROMETHAZINE-CODEINE Inactive CHERATUSSIN AC 100-10 MG/5ML ORAL SYRUP 1 tsp by mouth every 4 hours as needed for cough CHERATUSSIN AC 100-10 MG/5ML ORAL SYRUP 9 66689 GUAIFENESIN-CODEINE Inactive FLUTICASONE PROPIONATE 50 MCG/ACT NASAL SUSPENSION 1 t o 2 sprays each nostril daily FLUTICASONE PROPIONATE 50 MCG/AC T NASAL SUSPENSION 5657461 FLUTICASONE PROPIONATE Inactive PREDNISONE 20 MG ORAL TABLET 3 tab PO qd x 2d, 2 tab P O qd x 2d, 1 tab PO qd x 2d, 1/2 tab PO qd x 2d PREDNISONE 20 MG ORAL TAB LET 993490 PREDNISONE Inactive LEVOFLOXACIN 500 MG ORAL TABLET 1 tab PO daily x 10 days LEVOFLOXACIN 500 MG ORAL TABLET 390916 LEVOFLOXACIN Inactive CYCLOBENZAPRINE HCL 10 MG ORAL TABLET 1 tablet by mouth BID prn had pain CYCLOBENZAPRINE HCL 10 MG ORAL TABLET 623783 CYCLOBENZAPRINE HCL Inactive ZOCOR 40 MG ORAL TABLET 1 tab by mouth daily 4 ZOCOR 40 MG ORAL TABLET 800557 SIMVASTATIN Inactive TUSSIONEX PENNKINETIC ER 10-8 MG/5ML [...] FLUTICASONE PROPIO EFE 50 MCG/ACT NASAL SUSPENSION 4640849 FLUTICASONE PROPIONATE Inactive TUSSIONEX PENNKINETIC ER 10-8 [...] three days PREDNISONE 20 MG ORAL TABLET 010261 PREDNIS ONE Inactive PROAIR HFA 108 (90 BASE) MCG/ACT INHALATION AEROSOL SO LUTION 2 puffs four times a day as needed PROAIR HFA 108 (90 B ASE) MCG/ACT INHALATION AEROSOL SOLUTION ALBUTEROL SULFATE Inactive PREDNISONE 20 MG ORAL TABLET two tabs by mouth today, then one tab by mouth days two and three and four PREDNISONE 20 MG ORAL TAB LET 021313 PREDNISONE Inactive TUSSIONEX PENNKINETIC ER 10-8 MG/5ML [...] bid 04/20 TOPAMAX 100 MG ORAL TABLET 840552 TOPIRAMATE Inactive CYMBALTA 30 MG ORAL CAPSULE DELAYED RELEASE PARTICLES 1 cap by mouth daily for depression CYMBALTA 30 MG ORAL CAPSULE DELAYED RELEASE PARTICLES 145167 DULOXETINE HCL Inactive ZITHROMAX Z-REYNA 250 MG ORAL TABLET 2 today, then 1 daily for 4 d ays ZITHROMAX Z-REYNA 250 MG ORAL TABLET 764229 AZITHROMYCIN Inactive CEFDINIR 300 MG ORAL CAPSULE [...] 20 03/07/07 ZITHROMAX 250 MG ORAL TABLET 877663 AZITHROMYCIN Greer ctive CEFDINIR 300 MG ORAL CAPSULE by mouth twice a day 2011 CEFDINIR 300 MG ORAL CAPSULE 575406 CEFDINIR Inactive PREDNISONE 20 MG ORAL TABLET 2 tabs daily for 3 days, 1 tab daily for 3 days, 1/2 tab daily for 2 days PREDNISONE 20 MG ORAL T ABLET 165862 PREDNISONE Inactive AVELOX 400 MG ORAL TABLET 1 tab by mouth daily AVELOX 400 MG ORAL TABLET 098798 MOXIFLOXACIN HCL Inactive AVELOX 400 MG ORAL TABLET 1 tab by mouth daily AVELOX 400 MG ORAL TABLET 748352 MOXIFLOXACIN HCL Inactive PREDNISONE 20 MG ORAL TABLET Take 3 tabs daily for 3 d ays, 2 tabs daily for 3 days, 1 tab daily for 3 days, 1/2 tab daily for 3 days 11/07 PREDNISONE 20 MG ORAL TABLET 369206 PREDNISONE Inactive LEVAQUIN 500 MG ORAL TABLET take one po QD LEVAQUIN 500 MG ORAL TABLET 945814 LEVOFLOXACIN Inactive AZITHROMYCIN 250 MG ORAL TABLET 2 po qd x 1 day, then 1 po q d x 4 days AZITHROMYCIN 250 MG ORAL TABLET 568275 AZITHROMY GIOVANNI Inactive MEDROL 4 MG ORAL TABLET THERAPY PACK 6 tabs on day 1, 5 tabs on day 2, 4 tabs on day 3, 3 tabs on day 4, 2 tabs on day 5, 1 tab on day 6 2013 MEDROL 4 MG ORAL TABLET THERAPY PACK [id number] METHYLPREDNISOLONE Fannin ctive CHERATUSSIN AC 100-10 MG/5ML ORAL SYRUP 5ml po q6hr PRN Cough 20 13/04/14 CHERATUSSIN AC 100-10 MG/5ML ORAL SYRUP [id number] GUAIFENE SIN-CODEINE Inactive TRIAMCINOLONE ACETONIDE 0.1 % EXTERNAL CREAM apply three roger es daily prn rash TRIAMCINOLONE ACETONIDE 0.1 % EXTERNAL CREAM 101 4314 TRIAMCINOLONE ACETONIDE Inactive AZITHROMYCIN 250 MG ORAL TABLET 2 po qd x 1 day, then 1 po q d x 4 days AZITHROMYCIN 250 MG ORAL TABLET [id number] AZITHROMY GIOVANNI Inactive MEDROL 4 MG ORAL TABLET THERAPY PACK 6 pills x 1 day, then 5 pills x 1 day then 4 pills x 1 day, then 3 pills x 1 day, then 2 pills x 1 day, then 1 pill x 1 day, then stop MEDROL 4 MG ORAL TABLET THERAPY PACK [id number] METHYLPREDNISOLONE Inactive AMOXICILLIN 500 MG ORAL CAPSULE 1 tab by mouth 3 times daily x 10 days AMOXICILLIN 500 MG ORAL CAPSULE 918426 AMOXICILL IN Inactive AMOXICILLIN 500 MG ORAL CAPSULE 1 tab by mouth 3 times daily x 10 days AMOXICILLIN 500 MG ORAL CAPSULE 208560 AMOXICILL IN Inactive ZITHROMAX 250 MG ORAL TABLET 2 po today, then 1 po q days 2-5 20 12/08/14 ZITHROMAX 250 MG ORAL TABLET 833643 AZITHROMYCIN Greer ctive AUGMENTIN 875-125 MG ORAL TABLET 1 po BID x 10 days 20 13/01/20 AUGMENTIN 875-125 MG ORAL TABLET AMOXICILLIN-POT CLAVULANATE Inactive ZITHROMAX Z-REYNA 250 MG ORAL TABLET 2 today, then 1 daily for 4 d ays ZITHROMAX Z-REYNA 250 MG ORAL TABLET 351887 AZITHROMYCIN Inactive ZITHROMAX 250 MG ORAL TABLET 2 po today, then 1 po q days 2-5 20 14/03/21 ZITHROMAX 250 MG ORAL TABLET 164656 AZITHROMYCIN Fannin ctive ZITHROMAX Z-REYNA 250 MG ORAL TABLET 2 today, then 1 daily for 4 d ays ZITHROMAX Z-REYNA 250 MG ORAL TABLET 752099 AZITHROMYCIN Inactive CEFDINIR 300 MG ORAL CAPSULE 1 po BID x 10 days 06/21 CEFDINIR 300 MG ORAL CAPSULE 20020704 CEFDINIR Inactive ZITHROMAX 250 MG ORAL TABLET 2 po today, then 1 po q days 2-5 20 13/08/10 ZITHROMAX 250 MG ORAL TABLET 508705 AZITHROMYCIN Greer ctive LEVAQUIN 500 MG ORAL TABLET 1 tablet by mouth daily 13/09/24 LEVAQUIN 500 MG ORAL TABLET 19971102 LEVOFLOXACIN Inactive SINGULAIR 10 MG ORAL TABLET 1 po qday for allergies 14/01/12 SINGULAIR 10 MG ORAL TABLET 20010504 MONTELUKAST SODIUM Inactive AMOXICILLIN 500 MG ORAL CAPSULE 2 po BID x 10 days 201 09/29/08 AMOXICILLIN 500 MG ORAL CAPSULE 595818 AMOXICILLIN Inactive PREDNISONE 20 MG ORAL TABLET 2 tabs daily for 3 days, 1 tab daily for 3 days, 1/2 tab daily for 2 days PREDNISONE 20 MG ORAL T ABLET 811568 PREDNISONE Inactive ZITHROMAX Z-REYNA 250 MG ORAL TABLET 2 today, then 1 daily for 4 d ays ZITHROMAX Z-REYNA 250 MG ORAL TABLET 062071 AZITHROMYCIN Inactive PREDNISONE 20 MG ORAL TABLET 2 tabs daily for 3 days, 1 tab daily for 3 days, 1/2 tab daily for 2 days PREDNISONE 20 MG ORAL T ABLET 947366 PREDNISONE Inactive ZITHROMAX 250 MG ORAL TABLET 2 po today, then 1 po q days 2-5 20 14/09/04 ZITHROMAX 250 MG ORAL TABLET 167177 AZITHROMYCIN Fannin ctive AMOXICILLIN 500 MG ORAL CAPSULE 1 cap by mouth three times a day AMOXICILLIN 500 MG ORAL CAPSULE 023266 AMOXICILLIN Inactive TERBINAFINE HCL 250 MG ORAL TABLET 1 qDay for nail fungus 7 TERBINAFINE HCL 250 MG ORAL TABLET 440970 TERBINAFINE HCL Inact nael AUGMENTIN 875-125 MG ORAL TABLET 1 po BID x 10 days 20 16/03/22 AUGMENTIN 875-125 MG ORAL TABLET AMOXICILLIN-POT CLAVULANATE Inactive PREDNISONE 20 MG ORAL TABLET 2 po qd x 5 days PREDNISONE 20 MG ORAL TABLET 742940 PREDNISONE Inactive AZITHROMYCIN 250 MG ORAL TABLET 2 po qd x 1 day, then 1 po q d x 4 days AZITHROMYCIN 250 MG ORAL TABLET 010066 AZITHROMY GIOVANNI Inactive PREDNISONE 50 MG ORAL TABLET Take 50 mg dialy for 6 day s 7 PREDNISONE 50 MG ORAL TABLET 640131 PREDNISONE Inactive AUGMENTIN 875-125 MG ORAL TABLET 1 po BID x 10 days 18/04/16 AUGMENTIN 875-125 MG ORAL TABLET AMOXICILLIN-POT CLAVULANATE Inactive DOXYCYCLINE HYCLATE 100 MG ORAL CAPSULE 1 cap by mouth twice latasha ly DOXYCYCLINE HYCLATE 100 MG ORAL CAPSULE 1316909 DOXYCYCL INE HYCLATE Inactive PREDNISONE 20 MG ORAL TABLET Take 2 tabs day 1 and 2 and 1 t ab days 3 and 4 PREDNISONE 20 MG ORAL TABLET 880268 PREDNISONE Inactive Vital Signs Date Name Value [...] - Chem istry sodium, serum 139 mmol/L 945-539 4500/10/12 potassium, serum 3.8 mmol/L 3.5-5.2 chloride, serum [...] negative Encounters Code Encounter Date Provider Facility CPT-66804 Level 3 Est. Patient 16:08:07 CDT David lion [facility] CPT-14670 Level 3 Est. Patient 16:53:54 CDT May haas MD [facility] CPT-55070 [id number] Vst-Est Level IV 08:41:[address] Carlton Hu MD [facility] CPT-79815 Level 3 Est. Patient 09:46:49 REGISTRATION MANAGER David lion [facility] CPT-34141 [id number] Vst-Est Level III 11:12:16 CDT Yanet Bess DO [facility] CPT-05190 Level 3 Est. Patient 11:34:49 REGISTRATION MANAGER Perez Mora MD [facility] CPT-34517 Level 4 Est. Patient 09:51:32 REGISTRATION MANAGER Carlton rich MD [facility] CPT-28629 Level 3 Est. Patient 10:26:00 REGISTRATION MANAGER Elise stephenson [facility] CPT-59678 Level 3 Est. Patient 13:35:41 REGISTRATION MANAGER Carlton rich MD [facility] CPT-35652 Level 3 Est. Patient 10:03:52 REGISTRATION MANAGER Carlton rich MD [facility] CPT-06698 Level 3 Est. Patient 12:17:50 CDT Hugo Restrepo MD [facility] CPT-90413 Level 3 Est. Patient 13:42:38 CDT Elise stephenson [facility] CPT-22413 Level 3 Est. Patient 13:23:51 CDT Diya cobian [facility] CPT-21362 Level 3 Est. Patient 14:22:19 REGISTRATION MANAGER Diya cobian [facility] CPT-35602 Level 3 Est. Patient 10:11:46 CDT Carlton rich MD [facility] CPT-30414 Level 3 Est. Patient 17:29:43 CDT Elise Are ll HOME HEALTH ADMINISTRATOR [facility] CPT-65142 Level 3 Est. Patient 11:58:06 CDT Elise Are ll [facility] CPT-13069 Level 4 Est. Patient 14:36:51 CDT Carlton rich MD [facility] CPT-68882 Level 3 Est. Patient 18:16:00 REGISTRATION MANAGER Blaine Freeman [facility] CPT-65374 Level 3 Est. Patient 09:45:49 REGISTRATION MANAGER Carlton rich MD [facility] CPT-57581 Level 3 Est. Patient 13:19:20 CDT Carlton rich MD [facility] CPT-42279 Level 3 Est. Patient 13:06:43 CDT Ridge tam DO [facility] CPT-69419 Level 3 Est. Patient 10:03:07 CDT Perez Mora MD [facility] CPT-27740 Level 3 Est. Patient 19:50:35 REGISTRATION MANAGER Carlton rich MD [facility] CPT-63184 Level 4 Est. Patient 18:05:01 REGISTRATION MANAGER Carlton rich MD [facility] CPT-71589 Level 3 Est. Patient 10:45:55 REGISTRATION MANAGER Hugo Restrepo MD [facility] CPT-64359 Level 3 Est. Patient 14:12:49 CDT Griffin lincoln [facility] CPT-84685 Level 3 Est. Patient 17:37:24 CDT Carlton rich MD [facility] CPT-33766 Level 3 Est. Patient 16:51:54 CDT Carlton rich MD [facility] CPT-50480 Level 3 Est. Patient 12:18:11 CDT Hugo Restrepo MD [facility] CPT-15566 Level 3 Est. Patient 11:30:25 CDT Marcy crisostomo MD PhD [facility] CPT-81051 Level 3 Est. Patient 12:00:47 REGISTRATION MANAGER Carlton rich MD [facility] CPT-16784 Level 3 Est. Patient 16:31:06 REGISTRATION MANAGER Carlton rich MD [facility] CPT-60653 Level 3 Est. Patient 16:23:24 REGISTRATION MANAGER Ridge tam [facility] CPT-17493 Level 3 Est. Patient 12:34:12 CDT Carlton rich MD [facility] CPT-14532 Level 2 Est. Patient 15:43:33 CDT Robi armstrong MD [facility] CPT-93945 Level 4 Est. Patient 14:04:44 CDT Carlton rich MD [facility] CPT-00484 Level 3 Est. Patient 05:47:59 CDT Ridge tam [facility] CPT-79054 Level 3 Est. Patient 13:12:53 REGISTRATION MANAGER Carlton rich MD [facility] CPT-64602 Level 3 Est. Patient 14:26:53 CDT Hugo Restrepo MD [facility] Procedures Code Procedure Name Date Entry Date Standard Desc ription CPT-000 Give Appropriate Flu Vaccine 14:14:31 CDT 2 CPT-J1040 Depo Medrol 80 mg (Methyl Prednisolone A cetate) 10:42:44 CDT CPT-J1100 Decadron 8mg (Dexamethasone) 10:42:44 CDT 2 CPT-J0696 Rocephin 1gm Inj Solr 14:32:13 CDT CPT-J1020 Depo Medrol 60 mg (Methyl Prednisolone A cetate) 14:32:13 CDT CPT-J1100 Decadron 6mg (Dexamethasone) 14:32:13 CDT 2 CPT-22371 Hip bilat min 2V w AP pelvis 13:16:20 CDT 2 CPT-60084 Pelvis only 13:07:33 CDT CPT-66187 Spec Collection and Handling Fee 11:25:12 C DT CPT-58166 Fluzone Quadrivalent Intramuscular Suspe nsion 0.5 ML 14:31:55 CDT CPT-84378 Abx/Therapy Injection 13:28:47 REGISTRATION MANAGER CPT-J2930 Solu Medrol 125 mg (Methyl Prednisolone Sodium Succinate) 12:00:47 REGISTRATION MANAGER CPT-73090 Venipuncture Draw Fee 11:33:31 CDT CPT-49340 EKG Trac and Interp 11:21:09 CDT CPT-39231 Chest 2V Frontal and Lat 11:21:09 CDT 12/15 CPT-14239 Venipuncture Draw Fee 08:02:34 CDT CPT-21948 Chest 2V Frontal and Lat 05:47:59 CDT 06/05
--- OUTSIDE RECORDS SUMMARY | 2019-10-08 08:59 | XMS REPORT | Clinical Summary ---
Author Author Caitlin, Juliana Martinez Organization [facility] Address Unknown Phone Unavailable Allergies, Adverse [...] not els ewhere classified Menopause 627.2 Active Cralton Hu MD Symptomatic menopausal or female climacteric [...] unspecified site Pharyngitis acute 462 Resolved Hugo Restreop MD Acute pharyngitis Rhinitis, acute 460 Resolved [...] for up 2 weeks TRIAMCINOLONE ACETON KAYLA 75169862788 Active David Marianne CANVAS BASTER Active AMOXICILLIN 500 MG ORAL CAPSULE 1 cap by mouth twice daily 10/21 AMOXICILLIN 25248490849 Active David Marianne CANVAS BASTER Activ e ELMIRON 100 MG ORAL CAPSULE 2 capsules in the morning and 1 capsule at night PENTOSAN POLYSULFATE SODIUM 65998342414 Active 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 CYMBALTA 30 MG ORAL CAPSULE DELAYED RELEASE PARTICLES 1 cap by mouth daily for depression DULOXETINE HCL 84460206522 No Longer Active Carlton Hu MD Active CYMBALTA 60 MG ORAL CAPSULE DELAYED RELEASE PARTICLES 1 cap by mouth daily for mood and pain DULOXETINE HCL 59733849008 Active Carlton Hu MD Active TUSSIONEX PENNKINETIC ER 10-8 MG/5ML ORAL SUSPENSION E XTENDED RELEASE 5ml po q12hr PRN Cough HYDROCOD POLST-CHLORPHEN POLST 27042323954 Active David Marianne CANVAS BASTER Active PREDNISONE 20 MG ORAL TABLET Take 2 tabs day 1 and 2 and 1 t ab days 3 and 4 PREDNISONE 01469984574 No Longer Active David Marianne CANVAS BASTER Active DOXYCYCLINE HYCLATE 100 MG ORAL CAPSULE 1 cap by mouth twice latasha ly DOXYCYCLINE HYCLATE 65970017521 No Longer Active David Marianne CANVAS BASTER Active TOPAMAX 100 MG ORAL TABLET Take 1 tablet po bid TOPIRAMATE 06103751739 No Longer Active David Marianne CANVAS BASTER Active TUSSIONEX PENNKINETIC ER 10-8 MG/5ML ORAL SUSPENSION E XTENDED RELEASE 5ml po q12hr PRN Cough HYDROCOD POLST-CHLORPHEN POLST 5 7833417871 No Longer Active David Marianne CANVAS BASTER Active AUGMENTIN 875-125 MG ORAL TABLET 1 po BID x 10 days 18/04/16 AMOXICILLIN-POT CLAVULANATE 96402135225 No Longer Active David Lopes APRN Active PREDNISONE 50 MG ORAL TABLET Take 50 mg dialy for 6 day s 7 PREDNISONE 49379033652 No Longer Active David Marianne CANVAS BASTER Active TUSSIONEX PENNKINETIC ER 10-8 MG/5ML ORAL SUSPENSION E XTENDED RELEASE 5ml po q12hr PRN Cough HYDROCOD POLST-CHLORPHEN POLST 5 7359639900 No Longer Active Cherelle Torres RN Active PREDNISONE 20 MG ORAL TABLET two tabs by mouth today, then one tab by mouth days two and three and four PREDNISONE 92443199378 No Lo nger Active Cherelle Torres RN Active AZITHROMYCIN 250 MG ORAL TABLET 2 po qd x 1 day, then 1 po q d x 4 days AZITHROMYCIN 38901336169 No Longer Active Ridge Bess DO Active PREDNISONE 20 MG ORAL TABLET 2 po qd x 5 days P REDNISONE 80769054442 No Longer Active Perez Mora MD Active PROAIR HFA 108 (90 BASE) MCG/ACT INHALATION AEROSOL SO LUTION 2 puffs four times a day as needed ALBUTEROL SULFATE 11789732416 No Long er Active Becky FUENTES Active ASPIRIN 81 MG ORAL TABLET 1 po qd ASPIRIN 64968044838 Active Carlton Hu MD Active PREDNISONE 20 MG ORAL TABLET 1 tab twice daily for 3 d ay, then one daily for three days PREDNISONE 82489454229 No Longer Active Carlton Hu MD Active AUGMENTIN 875-125 MG ORAL TABLET 1 po BID x 10 days 20 16/03/22 AMOXICILLIN-POT CLAVULANATE 14108535702 No Longer Active Elise Garcai APRN Active TERBINAFINE HCL 250 MG ORAL TABLET 1 qDay for nail fungus 7 TERBINAFINE HCL 96247207084 No Longer Active Carlton Hu MD A ctive AMOXICILLIN 500 MG ORAL CAPSULE 1 cap by mouth three times a day AMOXICILLIN 79377899593 No Longer Active Carlton Hu MD Active ELMIRON 100 MG ORAL CAPSULE 2 tablets in the am and 1 tablet at hs PENTOSAN POLYSULFATE SODIUM 24699446924 No Longer Active Robert jade Hu MD Active MUCINEX D 60-600 MG ORAL TABLET EXTENDED RELEASE 12 HOUR 1 t ab po q am PSEUDOEPHEDRINE-GUAIFENESIN 37712771515 No Longer Act nael Carlton Hu MD Active MUCINEX DM MAXIMUM STRENGTH 60-1200 MG ORAL TABLET EXT ENDED RELEASE 12 HOUR 1 tab po q am DEXTROMETHORPHAN-GUAIFENESIN 56294062290 No Longer Active Carlton Hu MD Active TUSSIONEX PENNKINETIC ER 10-8 MG/5ML ORAL SUSPENSION E XTENDED RELEASE 5ml po q12hr PRN Cough HYDROCOD POLST-CHLORPHEN POLST 5 7670757701 No Longer Active Carlton Hu MD Active POTASSIUM CHLORIDE ER 20 MEQ ORAL TABLET EXTENDED RELE ASE Take 1 by mouth 4 times daily for 7 days POTASSIUM CHLORIDE 76767909545 No Longer Active Carlton Hu MD Active ZITHROMAX 250 MG ORAL TABLET 2 po today, then 1 po q days 2-5 14/09/04 AZITHROMYCIN 69305029194 No Longer Active Elise Garcia APRN Active TUSSIONEX PENNKINETIC ER 10-8 MG/5ML ORAL SUSPENSION E XTENDED RELEASE 5 ml twice a day as needed for cough HYDROCOD POLST-CHLORPH EN POLST 93398937561 No Longer Active Elise Garcia APRN Active MONTELUKAST SODIUM 10 MG ORAL TABLET 1 po daily for Allergy MONTELUKAST SODIUM 64540444635 Active Carlton Hu MD Ac tive TUSSIONEX PENNKINETIC ER 10-8 MG/5ML ORAL SUSPENSION E XTENDED RELEASE 5ml po q12hr PRN Cough HYDROCOD POLST-CHLORPHEN POLST 5 9612659216 No Longer Active Hugo Restrepo MD Active GABAPENTIN 100 MG ORAL CAPSULE 1 po BID for fibromyalgia GABAPENTIN 38278585204 Active ALFREDO Holly Active LYRICA 100 MG ORAL CAPSULE Take 1 tab po BID for fibromyalgia 20 11/08/21 PREGABALIN 73453069325 No Longer Active Elise Garcia APRN A ctive PREDNISONE 20 MG ORAL TABLET 2 tabs daily for 3 days, 1 tab daily for 3 days, 1/2 tab daily for 2 days PREDNISONE 58392439747 No Longer Active Jillina Frazell CANVAS BASTER Active TUSSIONEX PENNKINETIC ER 10-8 MG/5ML ORAL SUSPENSION E XTENDED RELEASE 5 mL PO q 12 hrs PRN cough HYDROCOD POLST-CHLORPHEN POLST 877885 58720 No Longer Active Jillina Frazell CANVAS BASTER Active FLUTICASONE PROPIONATE 50 MCG/ACT NASAL SUSPENSION 2 s prays each nostril daily until bottle is empty FLUTICASONE PROPIONATE 622427826 99 No Longer Active Jillina Frazell CANVAS BASTER Active ASMANEX 60 METERED DOSES 220 MCG/INH INHALATION AEROSO L POWDER BREATH ACTIVATED 1 puff bid with rinse after MOMETASONE FUROATE 0694591 4102 No Longer Active Jillina Frazell CANVAS BASTER Active ZITHROMAX Z-REYNA 250 MG ORAL TABLET 2 today, then 1 daily for 4 d ays AZITHROMYCIN 90070820732 No Longer Active Elise Garcia CANVAS BASTER Active TUSSIONEX PENNKINETIC ER 10-8 MG/5ML ORAL SUSPENSION E XTENDED RELEASE 5ml po q12hr PRN Cough HYDROCOD POLST-CHLORPHEN POLST 5 6508630127 No Longer Active Elise Garcia CANVAS BASTER Active PREDNISONE 20 MG ORAL TABLET 2 tabs daily for 3 days, 1 tab daily for 3 days, 1/2 tab daily for 2 days PREDNISONE 65026368478 No Longer Active Jillina Frazell CANVAS BASTER Active AMOXICILLIN 500 MG ORAL CAPSULE 2 po BID x 10 days 201 09/29/08 AMOXICILLIN 56176865040 No Longer Active Diya De Guzman CANVAS BASTER Act nael SINGULAIR 10 MG ORAL TABLET 1 po qday for allergies 14/01/12 MONTELUKAST SODIUM 74545496048 No Longer Active Carlton Hu MD Active LEVAQUIN 500 MG ORAL TABLET 1 tablet by mouth daily 13/09/24 LEVOFLOXACIN 33712985801 No Longer Active Carlton Hu MD Acti ve FLUTICASONE PROPIONATE 50 MCG/ACT NASAL SUSPENSION 2 s prays each nostril daily for 2 weeks, then 1 spray each nostril daily. FLUTICASONE PROPIONATE 28343146553 Active Carlton Hu MD Active ZITHROMAX 250 MG ORAL TABLET 2 po today, then 1 po q days 2-5 20 13/08/10 AZITHROMYCIN 43594340472 No Longer Active Elise Garcia CANVAS BASTER Active XANAX 0.5 MG ORAL TABLET one tablet by mouth daily prn anxiety 2015 ALPRAZOLAM 17719083988 Active ALFREDO Holly Active CEFDINIR 300 MG ORAL CAPSULE 1 po BID x 10 days CEFDINIR 27805391212 No Longer Active Carlton Hu MD Active ZOCOR 40 MG ORAL TABLET 1 tab by mouth daily SI MVASTATIN 42114691286 No Longer Active Carlton Hu MD Active CYCLOBENZAPRINE HCL 10 MG ORAL TABLET 1 tablet by mouth BID prn had pain CYCLOBENZAPRINE HCL 35755450325 No Longer Active Jayden Hu MD Active LEVOFLOXACIN 500 MG ORAL TABLET 1 tab PO daily x 10 days LEVOFLOXACIN 22807149087 No Longer Active Carlton Hu MD Acti ve PREDNISONE 20 MG ORAL TABLET 3 tab PO qd x 2d, 2 tab P O qd x 2d, 1 tab PO qd x 2d, 1/2 tab PO qd x 2d PREDNISONE 96152744870 No Lo nger Active Carlton Hu MD Active FLUTICASONE PROPIONATE 50 MCG/ACT NASAL SUSPENSION 1 t o 2 sprays each nostril daily FLUTICASONE PROPIONATE 27495662728 No Longer Ac tive Blaine HERNANDEZ Active CHERATUSSIN AC 100-10 MG/5ML ORAL SYRUP 1 tsp by mouth every 4 hours as needed for cough GUAIFENESIN-CODEINE 97009858819 No Longe r Active Blaine HERNANDEZ Active PROMETHAZINE-CODEINE 6.25-10 MG/5ML ORAL SYRUP 1 tsp b y mouth every 6 hours if needed for cough PROMETHAZINE-CODEINE 91236631751 No Longer Active Blaine HERNANDEZ Active CHERATUSSIN AC 100-10 MG/5ML ORAL SYRUP 1 tsp by mouth every 4 hours as needed for cough GUAIFENESIN-CODEINE 85705328743 No Longe r Active Blaine HERNANDEZ Active ZITHROMAX Z-REYNA 250 MG ORAL TABLET 2 today, then 1 daily for 4 d ays AZITHROMYCIN 57099038194 No Longer Active Columba Raida Act nael ZITHROMAX 250 MG ORAL TABLET 2 po today, then 1 po q days 2-5 20 14/03/21 AZITHROMYCIN 15014840272 No Longer Active Carlton Hu MD Active ZITHROMAX Z-REYNA 250 MG ORAL TABLET 2 today, then 1 daily for 4 d ays AZITHROMYCIN 36420593919 No Longer Active Columba Raida Act nael AUGMENTIN 875-125 MG ORAL TABLET 1 po BID x 10 days 13/01/20 AMOXICILLIN-POT CLAVULANATE 91424269885 No Longer Active Diya De Guzman APRN Active ZITHROMAX 250 MG ORAL TABLET 2 po today, then 1 po q days 2-5 20 12/08/14 AZITHROMYCIN 86975008115 No Longer Active Carlton Hu MD Active TRAMADOL HCL 50 MG ORAL TABLET 1 po tid with ES Tylenol TRAMADOL HCL 28622400740 Active Carlton Hu MD Active PREMARIN 0.625 MG ORAL TABLET TAKE 1 TAB BY MOUTH DAILY ESTROGENS CONJUGATED 23889495059 No Longer Active Ridge Bess DO A ctive CYMBALTA 30 MG ORAL CAPSULE DELAYED RELEASE PARTICLES 1 cap by mouth daily DULOXETINE HCL 84841364422 No Longer Active Ridge Ya ee DO Active AMOXICILLIN 500 MG ORAL CAPSULE 1 tab by mouth 3 times daily x 10 days AMOXICILLIN 21204035738 No Longer Active Carlton bustamante MD Active AMOXICILLIN 500 MG ORAL CAPSULE 1 tab by mouth 3 times daily x 10 days AMOXICILLIN 42798274158 No Longer Active Carlton bustamante MD Active PROMETHAZINE-CODEINE 6.25-10 MG/5ML ORAL SYRUP 1 tsp b y mouth every 8 hours prn cough PROMETHAZINE-CODEINE 90163580018 No Longer Acti ve Carlton Hu MD Active MEDROL 4 MG ORAL TABLET THERAPY PACK 6 pills x 1 day, then 5 pills x 1 day then 4 pills x 1 day, then 3 pills x 1 day, then 2 pills x 1 day, then 1 pill x 1 day, then stop METHYLPREDNISOLONE 40331909833 No Long er Active Perez Mora MD Active AZITHROMYCIN 250 MG ORAL TABLET 2 po qd x 1 day, then 1 po q d x 4 days AZITHROMYCIN 48159912569 No Longer Active Perez Ambriz MD Active SYMBICORT 160-4.5 MCG/ACT INHALATION AEROSOL 2 puffs bid wit h rinse after BUDESONIDE-FORMOTEROL FUMARATE 70616349440 N o Longer Active Perez Mora MD Active LYRICA 75 MG ORAL CAPSULE TAKE 1 CAPSULE BY MOUTH TWICE DAILY PREGABALIN 21227551666 No Longer Active Carlton Hu MD Acti ve TOPAMAX 25 MG ORAL TABLET 1 qHS x 1 week, then 1 BID x 1 week, then 1 qAM and 2 qHS x 1 week, then 2 BID (migraine prevention) T OPIRAMATE 05687753755 No Longer Active Jerica FUENTES Active TOPAMAX 50 MG ORAL TABLET take 1 tab po BID for migraines. 07/02 TOPIRAMATE 99193278947 No Longer Active Jerica FUENTES Active TRIAMCINOLONE ACETONIDE 0.1 % EXTERNAL CREAM apply three roger es daily prn rash TRIAMCINOLONE ACETONIDE 53324126699 No Longer Active Carlton Hu MD Active PAXIL 40 MG ORAL TABLET take 1 tab po qday for depression 0 PAROXETINE HCL 28947604993 Active Carlton Hu MD Active CHERATUSSIN AC 100-10 MG/5ML ORAL SYRUP 5ml po q6hr PRN Cough 20 13/04/14 GUAIFENESIN-CODEINE 26763218564 No Longer Active Carlton Hu MD Active MEDROL 4 MG ORAL TABLET THERAPY PACK 6 tabs on day 1, 5 tabs on day 2, 4 tabs on day 3, 3 tabs on day 4, 2 tabs on day 5, 1 tab on day 6 2013 METHYLPREDNISOLONE 69748925038 No Longer Active Perez Mora MD Active AZITHROMYCIN 250 MG ORAL TABLET 2 po qd x 1 day, then 1 po q d x 4 days AZITHROMYCIN 09851591086 No Longer Active Perez Ambriz MD Active PROPRANOLOL HCL 60 MG ORAL TABLET 1 PO Q D PROPRANOLOL HCL 37417683945 No Longer Active Perez Mora MD Activ e CHERATUSSIN AC 100-10 MG/5ML ORAL SYRUP take one tsp po Q 6h ours prn cough GUAIFENESIN-CODEINE 01855586465 No Longer Active Zia Mora MD Active AUGMENTIN 875-125 MG ORAL TABLET 1 tab by mouth twice daily with food AMOXICILLIN-POT CLAVULANATE 55713570245 No Longer Act nael Perez Mora MD Active CHERATUSSIN AC 100-10 MG/5ML ORAL SYRUP 1 tsp by mouth every 4 hours as needed for cough GUAIFENESIN-CODEINE 54744347572 No Longe r Active Hugo Restrepo MD Active ACETAMINOPHEN-CODEINE #3 300-30 MG ORAL TABLET 1 PO Q 4-6 HRS [place] N PAIN ACETAMINOPHEN-CODEINE 39449568307 No Longer Active Hugo Restrepo MD Active LEVAQUIN 500 MG ORAL TABLET take one po QD LEVO FLOXACIN 19339387950 No Longer Active Griffin HERNANDEZ Active PREDNISONE 20 MG ORAL TABLET Take 3 tabs daily for 3 d ays, 2 tabs daily for 3 days, 1 tab daily for 3 days, 1/2 tab daily for 3 days 11/07 PREDNISONE 00605691254 No Longer Active Carlton Hu MD Acti ve AVELOX 400 MG ORAL TABLET 1 tab by mouth daily MOXIFLOXACIN HCL 52807747350 No Longer Active Carlton Hu MD Active CHERATUSSIN AC 100-10 MG/5ML ORAL SYRUP 1 tsp by mouth every 4 hours as needed for cough GUAIFENESIN-CODEINE 51934949266 No Longe r Active Hugo Restrepo MD Active AVELOX 400 MG ORAL TABLET 1 tab by mouth daily MOXIFLOXACIN HCL 10681939520 No Longer Active Marcy De La Rosa MD PhD Active TERBINAFINE HCL 250 MG ORAL TABLET 1 qDay T ERBINAFINE HCL 01199567426 No Longer Active Marcy De La Rosa MD PhD Active CHERATUSSIN AC 100-10 MG/5ML ORAL SYRUP 1 tsp by mouth every 4 hours as needed for cough GUAIFENESIN-CODEINE 64917811764 No Longe r Active Marcy De La Rosa MD PhD Active AVELOX 400 MG ORAL TABLET 1 tab by mouth daily MOXIFLOXACIN HCL 73585022366 No Longer Active Marcy De La Rosa MD PhD Active HYDROCODONE-ACETAMINOPHEN 5-325 MG ORAL TABLET 1 po q 6hr PRN co ugh HYDROCODONE-ACETAMINOPHEN 29733980860 No Longer Active Marcy De La Rosa MD PhD Active PREDNISONE 20 MG ORAL TABLET 2 tabs daily for 3 days, 1 tab daily for 3 days, 1/2 tab daily for 2 days PREDNISONE 82585825423 No Longer Active Carlton Hu MD Active CEFDINIR 300 MG ORAL CAPSULE by mouth twice a day 2011 CEFDINIR 43207901237 No Longer Active Carlton Hu MD Acti ve HYDROCHLOROTHIAZIDE 25 MG ORAL TABLET 1 TAB PO DAILY HYDROCHLOROTHIAZIDE 31536094784 Active Carlton Hu MD A ctive ACETAMINOPHEN-CODEINE #3 300-30 MG ORAL TABLET 1 tablet po q 4-6 hrs prn pain ACETAMINOPHEN-CODEINE 72823755136 No Longer Active Ridge Bess DO Active ZITHROMAX 250 MG ORAL TABLET 2 po today, then 1 po q days 2-5 20 03/07/07 AZITHROMYCIN 83013142030 No Longer Active Carlton Hu MD Active CHERATUSSIN AC 100-10 MG/5ML ORAL SYRUP take 1 tsp po q4-6 h ours prn cough GUAIFENESIN-CODEINE 17258037562 No Longer Active Jayden Hu MD Active ACETAMINOPHEN-CODEINE #3 300-30 MG ORAL TABLET 1 PO Q 4-6 HR PRN PAIN ACETAMINOPHEN-CODEINE 64623798068 No Longer Active Da raimundo Hu MD Active LORTAB 7.5-500 MG/15ML ORAL ELIXIR 7.5 ml po q 4 hour prn cough HYDROCODONE-ACETAMINOPHEN 49223188673 No Longer Active Carlton Hu MD Active PREDNISONE 20 MG ORAL TABLET 1 po bid 3 days, then 1 po q day 3 days PREDNISONE 00513778595 No Longer Active Carlton Hu MD Active CEFDINIR 300 MG ORAL CAPSULE by mouth twice a day 2011 CEFDINIR 64148485224 No Longer Active Carlton Hu MD Acti ve CEFDINIR 300 MG ORAL CAPSULE by mouth twice a day 2010 CEFDINIR 98362328587 No Longer Active Carlton Hu MD Acti ve CEFDINIR 300 MG ORAL CAPSULE by mouth twice a day 2010 CEFDINIR 47312710749 No Longer Active Carlton Hu MD Acti ve TESSALON PERLES 100 MG ORAL CAPSULE 1 tablet by mouth 3 times daily as needed for cough BENZONATATE 80651133456 No Longer Active Carlton Hu MD Active CEFDINIR 300 MG ORAL CAPSULE by mouth twice a day 2010 CEFDINIR 05856663044 No Longer Active Carlton Hu MD Acti ve ZITHROMAX Z-REYNA 250 MG ORAL TABLET 2 today, then 1 daily for 4 d ays AZITHROMYCIN 46535429887 No Longer Active Hugo Restrepo MD Active TESSALON PERLES 100 MG ORAL CAPSULE 1 tablet by mouth 3 times daily as needed for cough TESSALON PERLES 100 MG ORAL CAPSULE 22126 7 BENZONATATE Inactive PREDNISONE 20 MG ORAL TABLET 1 po bid 3 days, then 1 po q day 3 days PREDNISONE 20 MG ORAL TABLET 372680 PREDNISONE [place] ctive LORTAB 7.5-500 MG/15ML ORAL [...] cough CHERATUSSIN AC 100-10 MG/5ML ORAL SYRUP 789398 GUAIFENESIN-CODEINE Inactive ACETAMINOPHEN-CODEINE #3 300-30 MG ORAL TABLET 1 tablet po q 4-6 hrs prn pain ACETAMINOPHEN-CODEINE #3 300-30 MG ORAL TABLET ACETAMINOPHEN-CODEINE Inactive HYDROCODONE-ACETAMINOPHEN 5-325 MG ORAL TABLET 1 po q 6hr PRN co ugh HYDROCODONE-ACETAMINOPHEN 5-325 MG ORAL TABLET 526126 HYDROCODONE-ACETAMINOPHEN Inactive AVELOX 400 MG ORAL TABLET 1 tab by mouth daily AVELOX 400 MG ORAL TABLET 873679 MOXIFLOXACIN HCL Inactive CHERATUSSIN AC 100-10 MG/5ML ORAL SYRUP 1 tsp by mouth every 4 hours as needed for cough CHERATUSSIN AC 100-10 MG/5ML ORAL SYRUP 9 68085 GUAIFENESIN-CODEINE Inactive TERBINAFINE HCL 250 MG ORAL TABLET 1 qDay 07/08 TERBINAFINE HCL 250 MG ORAL TABLET 788348 TERBINAFINE HCL Inactive CHERATUSSIN AC 100-10 MG/5ML ORAL SYRUP 1 tsp by mouth every 4 hours as needed for cough CHERATUSSIN AC 100-10 MG/5ML ORAL SYRUP 9 18655 GUAIFENESIN-CODEINE Inactive ACETAMINOPHEN-CODEINE #3 300-30 MG ORAL TABLET 1 PO Q 4-6 HRS KS N PAIN ACETAMINOPHEN-CODEINE #3 300-30 MG ORAL TABLET ACETAMINOPHEN-CODEINE Inactive CHERATUSSIN AC 100-10 MG/5ML ORAL SYRUP 1 tsp by mouth every 4 hours as needed for cough CHERATUSSIN AC 100-10 MG/5ML ORAL SYRUP 9 23184 GUAIFENESIN-CODEINE Inactive AUGMENTIN 875-125 MG ORAL TABLET 1 tab by mouth twice daily with food AUGMENTIN 875-125 MG ORAL TABLET AMOXICIL MADELINE-POT CLAVULANATE Inactive CHERATUSSIN AC 100-10 MG/5ML ORAL SYRUP take one tsp po Q 6h ours prn cough CHERATUSSIN AC 100-10 MG/5ML ORAL SYRUP 774394 GUAIFENESIN-CODEINE Inactive PROPRANOLOL HCL 60 MG ORAL TABLET 1 PO Q D PROPRANOLOL HCL 60 MG ORAL TABLET 436362 PROPRANOLOL HCL Inactive TOPAMAX 50 MG ORAL TABLET take 1 tab po BID for migraines. 07/02 TOPAMAX 50 MG ORAL TABLET 680827 TOPIRAMATE Inacti ve TOPAMAX 25 MG ORAL TABLET 1 qHS x 1 week, then 1 BID x 1 week, then 1 qAM and 2 qHS x 1 week, then 2 BID (migraine prevention) TOPAMAX 25 MG ORAL TABLET 380849 TOPIRAMATE Inactive LYRICA 75 MG ORAL CAPSULE TAKE 1 CAPSULE BY MOUTH TWICE DAILY LYRICA 75 MG ORAL CAPSULE PREGABALIN Inactive SYMBICORT 160-4.5 MCG/ACT INHALATION AEROSOL 2 puffs bid wit h rinse after SYMBICORT 160-4.5 MCG/ACT INHALATION AEROSOL BUDESONIDE- FORMOTEROL FUMARATE Inactive PROMETHAZINE-CODEINE 6.25-10 MG/5ML ORAL SYRUP 1 tsp b y mouth every 8 hours prn cough PROMETHAZINE-CODEINE 6.25-10 MG/ 5ML ORAL SYRUP 572445 PROMETHAZINE-CODEINE Inactive CYMBALTA 30 MG ORAL CAPSULE DELAYED RELEASE PARTICLES 1 cap by mouth daily CYMBALTA 30 MG ORAL CAPSULE DELAYED RELE ASE PARTICLES 032899 DULOXETINE HCL Inactive PREMARIN 0.625 MG ORAL TABLET TAKE 1 TAB BY MOUTH DAILY PREMARIN 0.625 MG ORAL TABLET ESTROGENS CONJUGATED Inactive CHERATUSSIN AC 100-10 MG/5ML ORAL SYRUP 1 tsp by mouth every 4 hours as needed for cough CHERATUSSIN AC 100-10 MG/5ML ORAL SYRUP 9 48659 GUAIFENESIN-CODEINE Inactive PROMETHAZINE-CODEINE 6.25-10 MG/5ML ORAL SYRUP 1 tsp b y mouth every 6 hours if needed for cough PROMETHAZINE-CODEINE 6.25-10 MG/5ML ORAL SYRUP 239427 PROMETHAZINE-CODEINE Inactive CHERATUSSIN AC 100-10 MG/5ML ORAL SYRUP 1 tsp by mouth every 4 hours as needed for cough CHERATUSSIN AC 100-10 MG/5ML ORAL SYRUP 9 28313 GUAIFENESIN-CODEINE Inactive FLUTICASONE PROPIONATE 50 MCG/ACT NASAL SUSPENSION 1 t o 2 sprays each nostril daily FLUTICASONE PROPIONATE 50 MCG/AC T NASAL SUSPENSION 1932601 FLUTICASONE PROPIONATE Inactive PREDNISONE 20 MG ORAL TABLET 3 tab PO qd x 2d, 2 tab P O qd x 2d, 1 tab PO qd x 2d, 1/2 tab PO qd x 2d PREDNISONE 20 MG ORAL TAB LET 349316 PREDNISONE Inactive LEVOFLOXACIN 500 MG ORAL TABLET 1 tab PO daily x 10 days LEVOFLOXACIN 500 MG ORAL TABLET 969083 LEVOFLOXACIN Inactive CYCLOBENZAPRINE HCL 10 MG ORAL TABLET 1 tablet by mouth BID prn had pain CYCLOBENZAPRINE HCL 10 MG ORAL TABLET 075612 CYCLOBENZAPRINE HCL Inactive ZOCOR 40 MG ORAL TABLET 1 tab by mouth daily 4 ZOCOR 40 MG ORAL TABLET 318640 SIMVASTATIN Inactive TUSSIONEX PENNKINETIC ER 10-8 MG/5ML [...] FLUTICASONE PROPIO EFE 50 MCG/ACT NASAL SUSPENSION 1535578 FLUTICASONE PROPIONATE Inactive TUSSIONEX PENNKINETIC ER 10-8 [...] three days PREDNISONE 20 MG ORAL TABLET 807809 PREDNIS ONE Inactive PROAIR HFA 108 (90 BASE) MCG/ACT INHALATION AEROSOL SO LUTION 2 puffs four times a day as needed PROAIR HFA 108 (90 B ASE) MCG/ACT INHALATION AEROSOL SOLUTION ALBUTEROL SULFATE Inactive PREDNISONE 20 MG ORAL TABLET two tabs by mouth today, then one tab by mouth days two and three and four PREDNISONE 20 MG ORAL TAB LET 935493 PREDNISONE Inactive TUSSIONEX PENNKINETIC ER 10-8 MG/5ML [...] bid 04/20 TOPAMAX 100 MG ORAL TABLET 837557 TOPIRAMATE Inactive CYMBALTA 30 MG ORAL CAPSULE DELAYED RELEASE PARTICLES 1 cap by mouth daily for depression CYMBALTA 30 MG ORAL CAPSULE DELAYED RELEASE PARTICLES 326870 DULOXETINE HCL Inactive ZITHROMAX Z-REYNA 250 MG ORAL TABLET 2 today, then 1 daily for 4 d ays ZITHROMAX Z-REYNA 250 MG ORAL TABLET 060512 AZITHROMYCIN Inactive CEFDINIR 300 MG ORAL CAPSULE [...] 20 03/07/07 ZITHROMAX 250 MG ORAL TABLET 399569 AZITHROMYCIN [place] ctive CEFDINIR 300 MG ORAL CAPSULE by mouth twice a day 2011 CEFDINIR 300 MG ORAL CAPSULE 627645 CEFDINIR Inactive PREDNISONE 20 MG ORAL TABLET 2 tabs daily for 3 days, 1 tab daily for 3 days, 1/2 tab daily for 2 days PREDNISONE 20 MG ORAL T ABLET 419463 PREDNISONE Inactive AVELOX 400 MG ORAL TABLET 1 tab by mouth daily AVELOX 400 MG ORAL TABLET 224576 MOXIFLOXACIN HCL Inactive AVELOX 400 MG ORAL TABLET 1 tab by mouth daily AVELOX 400 MG ORAL TABLET 610144 MOXIFLOXACIN HCL Inactive PREDNISONE 20 MG ORAL TABLET Take 3 tabs daily for 3 d ays, 2 tabs daily for 3 days, 1 tab daily for 3 days, 1/2 tab daily for 3 days 11/07 PREDNISONE 20 MG ORAL TABLET 278204 PREDNISONE Inactive LEVAQUIN 500 MG ORAL TABLET take one po QD LEVAQUIN 500 MG ORAL TABLET 615856 LEVOFLOXACIN Inactive AZITHROMYCIN 250 MG ORAL TABLET 2 po qd x 1 day, then 1 po q d x 4 days AZITHROMYCIN 250 MG ORAL TABLET 395001 AZITHROMY GIOVANNI Inactive MEDROL 4 MG ORAL TABLET THERAPY PACK 6 tabs on day 1, 5 tabs on day 2, 4 tabs on day 3, 3 tabs on day 4, 2 tabs on day 5, 1 tab on day 6 2013 MEDROL 4 MG ORAL TABLET THERAPY PACK 872670 METHYLPREDNISOLONE [place] ctive CHERATUSSIN AC 100-10 MG/5ML ORAL SYRUP 5ml po q6hr PRN Cough 20 13/04/14 CHERATUSSIN AC 100-10 MG/5ML ORAL SYRUP 104490 GUAIFENE SIN-CODEINE Inactive TRIAMCINOLONE ACETONIDE 0.1 % EXTERNAL CREAM apply three roger es daily prn rash TRIAMCINOLONE ACETONIDE 0.1 % EXTERNAL CREAM 101 4314 TRIAMCINOLONE ACETONIDE Inactive AZITHROMYCIN 250 MG ORAL TABLET 2 po qd x 1 day, then 1 po q d x 4 days AZITHROMYCIN 250 MG ORAL TABLET 971683 AZITHROMY GIOVANNI Inactive MEDROL 4 MG ORAL TABLET THERAPY PACK 6 pills x 1 day, then 5 pills x 1 day then 4 pills x 1 day, then 3 pills x 1 day, then 2 pills x 1 day, then 1 pill x 1 day, then stop MEDROL 4 MG ORAL TABLET THERAPY PACK 229678 METHYLPREDNISOLONE Inactive AMOXICILLIN 500 MG ORAL CAPSULE 1 tab by mouth 3 times daily x 10 days AMOXICILLIN 500 MG ORAL CAPSULE 659331 AMOXICILL IN Inactive AMOXICILLIN 500 MG ORAL CAPSULE 1 tab by mouth 3 times daily x 10 days AMOXICILLIN 500 MG ORAL CAPSULE 676339 AMOXICILL IN Inactive ZITHROMAX 250 MG ORAL TABLET 2 po today, then 1 po q days 2-5 20 12/08/14 ZITHROMAX 250 MG ORAL TABLET 948698 AZITHROMYCIN [place] [facility] AUGMENTIN 875-125 MG ORAL TABLET 1 po BID x 10 days 20 13/01/20 AUGMENTIN 875-125 MG ORAL TABLET AMOXICILLIN-POT CLAVULANATE Inactive ZITHROMAX Z-REYNA 250 MG ORAL TABLET 2 today, then 1 daily for 4 d ays ZITHROMAX Z-REYNA 250 MG ORAL TABLET 611920 AZITHROMYCIN Inactive ZITHROMAX 250 MG ORAL TABLET 2 po today, then 1 po q days 2-5 20 14/03/21 ZITHROMAX 250 MG ORAL TABLET 264432 AZITHROMYCIN [place] ctive ZITHROMAX Z-REYNA 250 MG ORAL TABLET 2 today, then 1 daily for 4 d ays ZITHROMAX Z-REYNA 250 MG ORAL TABLET 616624 AZITHROMYCIN Inactive CEFDINIR 300 MG ORAL CAPSULE 1 po BID x 10 days 06/21 CEFDINIR 300 MG ORAL CAPSULE 20020704 CEFDINIR Inactive ZITHROMAX 250 MG ORAL TABLET 2 po today, then 1 po q days 2-5 20 13/08/10 ZITHROMAX 250 MG ORAL TABLET 548994 AZITHROMYCIN [place] [facility]ive LEVAQUIN 500 MG ORAL TABLET 1 tablet by mouth daily 13/09/24 LEVAQUIN 500 MG ORAL TABLET 19971102 LEVOFLOXACIN Inactive SINGULAIR 10 MG ORAL TABLET 1 po qday for allergies 14/01/12 SINGULAIR 10 MG ORAL TABLET 20010504 MONTELUKAST SODIUM Inactive AMOXICILLIN 500 MG ORAL CAPSULE 2 po BID x 10 days 201 09/29/08 AMOXICILLIN 500 MG ORAL CAPSULE 851367 AMOXICILLIN Inactive PREDNISONE 20 MG ORAL TABLET 2 tabs daily for 3 days, 1 tab daily for 3 days, 1/2 tab daily for 2 days PREDNISONE 20 MG ORAL T ABLET 463456 PREDNISONE Inactive ZITHROMAX Z-REYNA 250 MG ORAL TABLET 2 today, then 1 daily for 4 d ays ZITHROMAX Z-REYNA 250 MG ORAL TABLET 906386 AZITHROMYCIN Inactive PREDNISONE 20 MG ORAL TABLET 2 tabs daily for 3 days, 1 tab daily for 3 days, 1/2 tab daily for 2 days PREDNISONE 20 MG ORAL T ABLET 788966 PREDNISONE Inactive ZITHROMAX 250 MG ORAL TABLET 2 po today, then 1 po q days 2-5 20 14/09/04 ZITHROMAX 250 MG ORAL TABLET 948373 AZITHROMYCIN [place] [facility] AMOXICILLIN 500 MG ORAL CAPSULE 1 cap by mouth three times a day AMOXICILLIN 500 MG ORAL CAPSULE 582934 AMOXICILLIN Inactive TERBINAFINE HCL 250 MG ORAL TABLET 1 qDay for nail fungus 7 TERBINAFINE HCL 250 MG ORAL TABLET 354311 TERBINAFINE HCL Inact nael AUGMENTIN 875-125 MG ORAL TABLET 1 po BID x 10 days 20 16/03/22 AUGMENTIN 875-125 MG ORAL TABLET AMOXICILLIN-POT CLAVULANATE Inactive PREDNISONE 20 MG ORAL TABLET 2 po qd x 5 days PREDNISONE 20 MG ORAL TABLET 386073 PREDNISONE Inactive AZITHROMYCIN 250 MG ORAL TABLET 2 po qd x 1 day, then 1 po q d x 4 days AZITHROMYCIN 250 MG ORAL TABLET 716336 AZITHROMY GIOVANNI Inactive PREDNISONE 50 MG ORAL TABLET Take 50 mg dialy for 6 day s 7 PREDNISONE 50 MG ORAL TABLET 892205 PREDNISONE Inactive AUGMENTIN 875-125 MG ORAL TABLET 1 po BID x 10 days 18/04/16 AUGMENTIN 875-125 MG ORAL TABLET AMOXICILLIN-POT CLAVULANATE Inactive DOXYCYCLINE HYCLATE 100 MG ORAL CAPSULE 1 cap by mouth twice latasha ly DOXYCYCLINE HYCLATE 100 MG ORAL CAPSULE 6972931 DOXYCYCL INE HYCLATE Inactive PREDNISONE 20 MG ORAL TABLET Take 2 tabs day 1 and 2 and 1 t ab days 3 and 4 PREDNISONE 20 MG ORAL TABLET 466930 PREDNISONE Inactive Vital Signs Date Name Value [...] - Chem istry sodium, serum 139 mmol/L 054-689 0348/10/12 potassium, serum 3.8 mmol/L 3.5-5.2 chloride, serum [...] negative Encounters Code Encounter Date Provider Facility CPT-71479 Level 3 Est. Patient 16:08:07 CDT David lion [facility] CPT-90836 Level 3 Est. Patient 16:53:54 CDT May haas MD [facility] CPT-09593 [id number] Vst-Est Level IV 08:41:[address] Carlton Hu MD [facility] CPT-70709 Level 3 Est. Patient 09:46:49 RESEARCH ADMINISTRATOR David lion [facility] CPT-50654 [id number] Vst-Est Level III 11:12:16 CDT Yanet Bess DO [facility] CPT-59679 Level 3 Est. Patient 11:34:49 RESEARCH ADMINISTRATOR Perez Mora MD [facility] CPT-39026 Level 4 Est. Patient 09:51:32 RESEARCH ADMINISTRATOR Carlton rich MD [facility] CPT-94728 Level 3 Est. Patient 10:26:00 RESEARCH ADMINISTRATOR Elise stephenson [facility] CPT-60145 Level 3 Est. Patient 13:35:41 RESEARCH ADMINISTRATOR Carlton rich MD [facility] CPT-71599 Level 3 Est. Patient 10:03:52 RESEARCH ADMINISTRATOR Carlton rich MD [facility] CPT-72838 Level 3 Est. Patient 12:17:50 CDT Hugo Restrepo MD [facility] CPT-25074 Level 3 Est. Patient 13:42:38 CDT Elise stephenson [facility] CPT-03524 Level 3 Est. Patient 13:23:51 CDT Diya cobian [facility] CPT-54581 Level 3 Est. Patient 14:22:19 RESEARCH ADMINISTRATOR Diya cobian [facility] CPT-82847 Level 3 Est. Patient 10:11:46 CDT Carlton rich MD [facility] CPT-59591 Level 3 Est. Patient 17:29:43 CDT Leise Are ll [employer]ER [facility] CPT-90166 Level 3 Est. Patient 11:58:06 CDT Elise Are ll [facility] CPT-66703 Level 4 Est. Patient 14:36:51 CDT Carlton rich MD [facility] CPT-61464 Level 3 Est. Patient 18:16:00 RESEARCH ADMINISTRATOR Blaine Freeman [facility] CPT-60104 Level 3 Est. Patient 09:45:49 RESEARCH ADMINISTRATOR Carlton rich MD [facility] CPT-09250 Level 3 Est. Patient 13:19:20 CDT Carlton rich MD [facility] CPT-32417 Level 3 Est. Patient 13:06:43 CDT Ridge tam DO [facility] CPT-75712 Level 3 Est. Patient 10:03:07 CDT Perez Mora MD [facility] CPT-43378 Level 3 Est. Patient 19:50:35 RESEARCH ADMINISTRATOR Carlton rich MD [facility] CPT-76926 Level 4 Est. Patient 18:05:01 RESEARCH ADMINISTRATOR Carlton rich MD [facility] CPT-76616 Level 3 Est. Patient 10:45:55 RESEARCH ADMINISTRATOR Hugo Restrepo MD [facility] CPT-81372 Level 3 Est. Patient 14:12:49 CDT Griffin lincoln [facility] CPT-33099 Level 3 Est. Patient 17:37:24 CDT Carlton rich MD [facility] CPT-72510 Level 3 Est. Patient 16:51:54 CDT Carlton rich MD [facility] CPT-37269 Level 3 Est. Patient 12:18:11 CDT Hugo Restrepo MD [facility] CPT-27118 Level 3 Est. Patient 11:30:25 CDT Marcy crisostomo MD PhD [facility] CPT-37349 Level 3 Est. Patient 12:00:47 RESEARCH ADMINISTRATOR Carlton rich MD [facility] CPT-25533 Level 3 Est. Patient 16:31:06 RESEARCH ADMINISTRATOR Carlton rich MD [facility] CPT-01696 Level 3 Est. Patient 16:23:24 RESEARCH ADMINISTRATOR Ridge tam [facility] CPT-50418 Level 3 Est. Patient 12:34:12 CDT Carlton rich MD [facility] CPT-76555 Level 2 Est. Patient 15:43:33 CDT Robi armstrong MD [facility] CPT-99314 Level 4 Est. Patient 14:04:44 CDT Carlton rich MD [facility] CPT-41214 Level 3 Est. Patient 05:47:59 CDT Ridge tam [facility] CPT-15128 Level 3 Est. Patient 13:12:53 RESEARCH ADMINISTRATOR Carlton rich MD [facility] CPT-77760 Level 3 Est. Patient 14:26:53 CDT Hugo Restrepo MD [facility] Procedures Code Procedure Name Date Entry Date Standard Desc ription CPT-000 Give Appropriate Flu Vaccine 14:14:31 CDT 2 CPT-J1040 Depo Medrol 80 mg (Methyl Prednisolone A cetate) 10:42:44 CDT CPT-J1100 Decadron 8mg (Dexamethasone) 10:42:44 CDT 2 CPT-J0696 Rocephin 1gm Inj Solr 14:32:13 CDT CPT-J1020 Depo Medrol 60 mg (Methyl Prednisolone A cetate) 14:32:13 CDT CPT-J1100 Decadron 6mg (Dexamethasone) 14:32:13 CDT 2 CPT-22343 Hip bilat min 2V w AP pelvis 13:16:20 CDT 2 CPT-17001 Pelvis only 13:07:33 CDT CPT-55985 Spec Collection and Handling Fee 11:25:12 C DT CPT-73870 Fluzone Quadrivalent Intramuscular Suspe nsion 0.5 ML 14:31:55 CDT CPT-93314 Abx/Therapy Injection 13:28:47 RESEARCH ADMINISTRATOR CPT-J2930 Solu Medrol 125 mg (Methyl Prednisolone Sodium Succinate) 12:00:47 RESEARCH ADMINISTRATOR CPT-71210 Venipuncture Draw Fee 11:33:31 CDT CPT-94293 EKG Trac and Interp 11:21:09 CDT CPT-08745 Chest 2V Frontal and Lat 11:21:09 CDT 12/15 CPT-31474 Venipuncture Draw Fee 08:02:34 CDT CPT-67246 Chest 2V Frontal and Lat 05:47:59 CDT 06/05
--- OUTSIDE RECORDS SUMMARY | 2019-10-08 08:59 | XMS REPORT | Clinical Summary ---
Author Author Caitlin, Juliana Martinez Organization [employer] [facility] Address Unknown [...] URI 465.9 Inactive Ridge Bess DO Ac [place] upper respiratory infections of unspecified site Body [...] for up 2 weeks TRIAMCINOLONE ACETON KAYLA [id number] Active David Marianne MANAGER TRAINING Active AMOXICILLIN 500 MG ORAL CAPSULE 1 cap by mouth twice daily 10/21 AMOXICILLIN 63948583309 Active David Marianne MANAGER TRAINING Activ e ELMIRON 100 MG ORAL CAPSULE 2 capsules in the morning and 1 capsule at night PENTOSAN POLYSULFATE SODIUM 12361043797 Active Cinthia H art [employer] MANAGER Active CYMBALTA 30 MG ORAL CAPSULE DELAYED RELEASE PARTICLES 1 cap by mouth daily for depression DULOXETINE HCL 01753629180 No Longer Active Carlton Hu MD Active CYMBALTA 60 MG ORAL CAPSULE DELAYED RELEASE PARTICLES 1 cap by mouth daily for mood and pain DULOXETINE HCL 81123820073 Active Carlton Hu MD Active TUSSIONEX PENNKINETIC ER 10-8 MG/5ML ORAL SUSPENSION E XTENDED RELEASE 5ml po q12hr PRN Cough HYDROCOD POLST-CHLORPHEN POLST 71066518779 Active David Marianne MANAGER TRAINING Active PREDNISONE 20 MG ORAL TABLET Take 2 tabs day 1 and 2 and 1 t ab days 3 and 4 PREDNISONE 55912094607 No Longer Active David Marianne MANAGER TRAINING Active DOXYCYCLINE HYCLATE 100 MG ORAL CAPSULE 1 cap by mouth twice latasha ly DOXYCYCLINE HYCLATE 46908714688 No Longer Active David Marianne MANAGER TRAINING Active TOPAMAX 100 MG ORAL TABLET Take 1 tablet po bid TOPIRAMATE 55876805402 No Longer Active David Marianne MANAGER TRAINING Active TUSSIONEX PENNKINETIC ER 10-8 MG/5ML ORAL SUSPENSION E XTENDED RELEASE 5ml po q12hr PRN Cough HYDROCOD POLST-CHLORPHEN POLST 5 0256872902 No Longer Active David Marianne MANAGER TRAINING Active AUGMENTIN 875-125 MG ORAL TABLET 1 po BID x 10 days 18/04/16 AMOXICILLIN-POT CLAVULANATE 67688371243 No Longer Active David Lopes APRN Active PREDNISONE 50 MG ORAL TABLET Take 50 mg dialy for 6 day s 7 PREDNISONE 03447369974 No Longer Active David Marianne MANAGER TRAINING Active TUSSIONEX PENNKINETIC ER 10-8 MG/5ML ORAL SUSPENSION E XTENDED RELEASE 5ml po q12hr PRN Cough HYDROCOD POLST-CHLORPHEN POLST 5 3573070745 No Longer Active Cherelle Torres RN Active PREDNISONE 20 MG ORAL TABLET two tabs by mouth today, then one tab by mouth days two and three and four PREDNISONE 02112204449 No Lo nger Active Cherelle Torres RN Active AZITHROMYCIN 250 MG ORAL TABLET 2 po qd x 1 day, then 1 po q d x 4 days AZITHROMYCIN 58254924175 No Longer Active Ridge Bess DO Active PREDNISONE 20 MG ORAL TABLET 2 po qd x 5 days P REDNISONE 57404305823 No Longer Active Perez Mora MD Active PROAIR HFA 108 (90 BASE) MCG/ACT INHALATION AEROSOL SO LUTION 2 puffs four times a day as needed ALBUTEROL SULFATE 59011398885 No Long er Active Becky FUENTES Active ASPIRIN 81 MG ORAL TABLET 1 po qd ASPIRIN 02686921014 Active Carlton Hu MD Active PREDNISONE 20 MG ORAL TABLET 1 tab twice daily for 3 d ay, then one daily for three days PREDNISONE 08295083323 No Longer Active Carlton Hu MD Active AUGMENTIN 875-125 MG ORAL TABLET 1 po BID x 10 days 20 16/03/22 AMOXICILLIN-POT CLAVULANATE 17007587646 No Longer Active Elise Garcia APRN Active TERBINAFINE HCL 250 MG ORAL TABLET 1 qDay for nail fungus 7 TERBINAFINE HCL 35692206631 No Longer Active Carlton Hu MD A ctive AMOXICILLIN 500 MG ORAL CAPSULE 1 cap by mouth three times a day AMOXICILLIN 64115894773 No Longer Active Carlton Hu MD Active ELMIRON 100 MG ORAL CAPSULE 2 tablets in the am and 1 tablet at hs PENTOSAN POLYSULFATE SODIUM 89293194990 No Longer Active Robert Hu MD Active MUCINEX D 60-600 MG ORAL TABLET EXTENDED RELEASE 12 HOUR 1 t ab po q am PSEUDOEPHEDRINE-GUAIFENESIN 50117563188 No Longer Act nael Carlton Hu MD Active MUCINEX DM MAXIMUM STRENGTH 60-1200 MG ORAL TABLET EXT ENDED RELEASE 12 HOUR 1 tab po q am DEXTROMETHORPHAN-GUAIFENESIN 97853645990 No Longer Active Carlton Hu MD Active TUSSIONEX PENNKINETIC ER 10-8 MG/5ML ORAL SUSPENSION E XTENDED RELEASE 5ml po q12hr PRN Cough HYDROCOD POLST-CHLORPHEN POLST 5 4928950768 No Longer Active Carlton Hu MD Active POTASSIUM CHLORIDE ER 20 MEQ ORAL TABLET EXTENDED RELE ASE Take 1 by mouth 4 times daily for 7 days POTASSIUM CHLORIDE 91345508193 No Longer Active Carlton Hu MD Active ZITHROMAX 250 MG ORAL TABLET 2 po today, then 1 po q days 2-5 14/09/04 AZITHROMYCIN 87599875296 No Longer Active Elise Garcia APRN Active TUSSIONEX PENNKINETIC ER 10-8 MG/5ML ORAL SUSPENSION E XTENDED RELEASE 5 ml twice a day as needed for cough HYDROCOD POLST-CHLORPH EN POLST 60958632724 No Longer Active Elise Garcia APRN Active MONTELUKAST SODIUM 10 MG ORAL TABLET 1 po daily for Allergy MONTELUKAST SODIUM 76624266674 Active Carlton Hu MD Ac tive TUSSIONEX PENNKINETIC ER 10-8 MG/5ML ORAL SUSPENSION E XTENDED RELEASE 5ml po q12hr PRN Cough HYDROCOD POLST-CHLORPHEN POLST 5 0026400618 No Longer Active Hugo Restrepo MD Active GABAPENTIN 100 MG ORAL CAPSULE 1 po BID for fibromyalgia GABAPENTIN 94247877211 Active ALFREDO Holly Active LYRICA 100 MG ORAL CAPSULE Take 1 tab po BID for fibromyalgia 20 11/08/21 PREGABALIN 44417718246 No Longer Active Elise Garcia APRN A ctive PREDNISONE 20 MG ORAL TABLET 2 tabs daily for 3 days, 1 tab daily for 3 days, 1/2 tab daily for 2 days PREDNISONE 59640414727 No Longer Active Jillina Frazell MANAGER TRAINING Active TUSSIONEX PENNKINETIC ER 10-8 MG/5ML ORAL SUSPENSION E XTENDED RELEASE 5 mL PO q 12 hrs PRN cough HYDROCOD POLST-CHLORPHEN POLST 073697 55914 No Longer Active Jillina Frazell MANAGER TRAINING Active FLUTICASONE PROPIONATE 50 MCG/ACT NASAL SUSPENSION 2 s prays each nostril daily until bottle is empty FLUTICASONE PROPIONATE 549320648 99 No Longer Active Jillina Frazell MANAGER TRAINING Active ASMANEX 60 METERED DOSES 220 MCG/INH INHALATION AEROSO L POWDER BREATH ACTIVATED 1 puff bid with rinse after MOMETASONE FUROATE 1098339 4102 No Longer Active Jillina Frazell MANAGER TRAINING Active ZITHROMAX Z-REYNA 250 MG ORAL TABLET 2 today, then 1 daily for 4 d ays AZITHROMYCIN 74346827667 No Longer Active Elise Garcia MANAGER TRAINING Active TUSSIONEX PENNKINETIC ER 10-8 MG/5ML ORAL SUSPENSION E XTENDED RELEASE 5ml po q12hr PRN Cough HYDROCOD POLST-CHLORPHEN POLST 5 9453846614 No Longer Active Eilse Garcia APRN Active PREDNISONE 20 MG ORAL TABLET 2 tabs daily for 3 days, 1 tab daily for 3 days, 1/2 tab daily for 2 days PREDNISONE 99865844234 No Longer Active Jillina Frazell MANAGER TRAINING Active AMOXICILLIN 500 MG ORAL CAPSULE 2 po BID x 10 days 201 09/29/08 AMOXICILLIN 41385443026 No Longer Active Diya De Guzman MANAGER TRAINING Act nael SINGULAIR 10 MG ORAL TABLET 1 po qday for allergies 14/01/12 MONTELUKAST SODIUM 30361863982 No Longer Active Carlton Hu MD Active LEVAQUIN 500 MG ORAL TABLET 1 tablet by mouth daily 13/09/24 LEVOFLOXACIN 48324313646 No Longer Active Carlton Hu MD Acti ve FLUTICASONE PROPIONATE 50 MCG/ACT NASAL SUSPENSION 2 s prays each nostril daily for 2 weeks, then 1 spray each nostril daily. FLUTICASONE PROPIONATE 18481123998 Active Carlton Hu MD Active ZITHROMAX 250 MG ORAL TABLET 2 po today, then 1 po q days 2-5 20 13/08/10 AZITHROMYCIN 49289726538 No Longer Active Elise Garcia APRN Active XANAX 0.5 MG ORAL TABLET one tablet by mouth daily prn anxiety 2015 ALPRAZOLAM 76698989920 Active ALFREDO Holly Active CEFDINIR 300 MG ORAL CAPSULE 1 po BID x 10 days CEFDINIR 61851660896 No Longer Active Carlton Hu MD Active ZOCOR 40 MG ORAL TABLET 1 tab by mouth daily SI MVASTATIN 74874751856 No Longer Active Carlton Hu MD Active CYCLOBENZAPRINE HCL 10 MG ORAL TABLET 1 tablet by mouth BID prn had pain CYCLOBENZAPRINE HCL 51850059640 No Longer Active Jayden Hu MD Active LEVOFLOXACIN 500 MG ORAL TABLET 1 tab PO daily x 10 days LEVOFLOXACIN 04607388195 No Longer Active Carlton Hu MD Acti ve PREDNISONE 20 MG ORAL TABLET 3 tab PO qd x 2d, 2 tab P O qd x 2d, 1 tab PO qd x 2d, 1/2 tab PO qd x 2d PREDNISONE 82863790800 No Lo nger Active Carlton Hu MD Active FLUTICASONE PROPIONATE 50 MCG/ACT NASAL SUSPENSION 1 t o 2 sprays each nostril daily FLUTICASONE PROPIONATE 04258680359 No Longer Ac tive Blaine HERNANDEZ Active CHERATUSSIN AC 100-10 MG/5ML ORAL SYRUP 1 tsp by mouth every 4 hours as needed for cough GUAIFENESIN-CODEINE 79708190697 No Longe r Active Blaine HERNANDEZ Active PROMETHAZINE-CODEINE 6.25-10 MG/5ML ORAL SYRUP 1 tsp b y mouth every 6 hours if needed for cough PROMETHAZINE-CODEINE 04389870230 No Longer Active Blaine HERNANDEZ Active CHERATUSSIN AC 100-10 MG/5ML ORAL SYRUP 1 tsp by mouth every 4 hours as needed for cough GUAIFENESIN-CODEINE 02363669874 No Longe r Active Blaine HERNANDEZ Active ZITHROMAX Z-REYNA 250 MG ORAL TABLET 2 today, then 1 daily for 4 d ays AZITHROMYCIN 16037637623 No Longer Active Columba Raida Act nael ZITHROMAX 250 MG ORAL TABLET 2 po today, then 1 po q days 2-5 20 14/03/21 AZITHROMYCIN 73882564411 No Longer Active Carlton Hu MD Active ZITHROMAX Z-REYNA 250 MG ORAL TABLET 2 today, then 1 daily for 4 d ays AZITHROMYCIN 29699135605 No Longer Active Columba Raida Act nael AUGMENTIN 875-125 MG ORAL TABLET 1 po BID x 10 days 13/01/20 AMOXICILLIN-POT CLAVULANATE 97192664307 No Longer Active Diya De Guzman APRN Active ZITHROMAX 250 MG ORAL TABLET 2 po today, then 1 po q days 2-5 20 12/08/14 AZITHROMYCIN 60450174959 No Longer Active Carlton Hu MD Active TRAMADOL HCL 50 MG ORAL TABLET 1 po tid with ES Tylenol TRAMADOL HCL 36095966511 Active Carlton Hu MD Active PREMARIN 0.625 MG ORAL TABLET TAKE 1 TAB BY MOUTH DAILY ESTROGENS CONJUGATED 00427819356 No Longer Active Ridge Bess DO A ctive CYMBALTA 30 MG ORAL CAPSULE DELAYED RELEASE PARTICLES 1 cap by mouth daily DULOXETINE HCL 02010664535 No Longer Active Ridge Ya ee DO Active AMOXICILLIN 500 MG ORAL CAPSULE 1 tab by mouth 3 times daily x 10 days AMOXICILLIN 39879353795 No Longer Active Carlton bustamante MD Active AMOXICILLIN 500 MG ORAL CAPSULE 1 tab by mouth 3 times daily x 10 days AMOXICILLIN 28899820084 No Longer Active Carlton bustamante MD Active PROMETHAZINE-CODEINE 6.25-10 MG/5ML ORAL SYRUP 1 tsp b y mouth every 8 hours prn cough PROMETHAZINE-CODEINE 78058138862 No Longer Acti ve Carlton Hu MD Active MEDROL 4 MG ORAL TABLET THERAPY PACK 6 pills x 1 day, then 5 pills x 1 day then 4 pills x 1 day, then 3 pills x 1 day, then 2 pills x 1 day, then 1 pill x 1 day, then stop METHYLPREDNISOLONE 17187468950 No Long er Active Perez Mora MD Active AZITHROMYCIN 250 MG ORAL TABLET 2 po qd x 1 day, then 1 po q d x 4 days AZITHROMYCIN 96843230107 No Longer Active Perez Ambriz MD Active SYMBICORT 160-4.5 MCG/ACT INHALATION AEROSOL 2 puffs bid wit h rinse after BUDESONIDE-FORMOTEROL FUMARATE 50908216935 N o Longer Active Perez Mora MD Active LYRICA 75 MG ORAL CAPSULE TAKE 1 CAPSULE BY MOUTH TWICE DAILY PREGABALIN 25129842657 No Longer Active Carlton Hu MD Acti ve TOPAMAX 25 MG ORAL TABLET 1 qHS x 1 week, then 1 BID x 1 week, then 1 qAM and 2 qHS x 1 week, then 2 BID (migraine prevention) T OPIRAMATE 81741992211 No Longer Active Jerica FUENTES Active TOPAMAX 50 MG ORAL TABLET take 1 tab po BID for migraines. 07/02 TOPIRAMATE 08648759174 No Longer Active Jerica FUENTES Active TRIAMCINOLONE ACETONIDE 0.1 % EXTERNAL CREAM apply three roger es daily prn rash TRIAMCINOLONE ACETONIDE 85309701361 No Longer Active Carlton Hu MD Active PAXIL 40 MG ORAL TABLET take 1 tab po qday for depression 0 PAROXETINE HCL 51885371096 Active Carlton Hu MD Active CHERATUSSIN AC 100-10 MG/5ML ORAL SYRUP 5ml po q6hr PRN Cough 20 13/04/14 GUAIFENESIN-CODEINE 47528284455 No Longer Active Carlton Hu MD Active MEDROL 4 MG ORAL TABLET THERAPY PACK 6 tabs on day 1, 5 tabs on day 2, 4 tabs on day 3, 3 tabs on day 4, 2 tabs on day 5, 1 tab on day 6 2013 METHYLPREDNISOLONE 73456839032 No Longer Active Perez Mora MD Active AZITHROMYCIN 250 MG ORAL TABLET 2 po qd x 1 day, then 1 po q d x 4 days AZITHROMYCIN 12904236415 No Longer Active Perez Ambriz MD Active PROPRANOLOL HCL 60 MG ORAL TABLET 1 PO Q D PROPRANOLOL HCL 21513395970 No Longer Active Perez Mora MD Activ e CHERATUSSIN AC 100-10 MG/5ML ORAL SYRUP take one tsp po Q 6h ours prn cough GUAIFENESIN-CODEINE 48046532988 No Longer Active Zia Mora MD Active AUGMENTIN 875-125 MG ORAL TABLET 1 tab by mouth twice daily with food AMOXICILLIN-POT CLAVULANATE 62027907325 No Longer Act nael Perez Mora MD Active CHERATUSSIN AC 100-10 MG/5ML ORAL SYRUP 1 tsp by mouth every 4 hours as needed for cough GUAIFENESIN-CODEINE 94113928302 No Longe r Active Hugo Restrepo MD Active ACETAMINOPHEN-CODEINE #3 300-30 MG ORAL TABLET 1 PO Q 4-6 HRS SD N PAIN ACETAMINOPHEN-CODEINE 17589931731 No Longer Active Hugo Restrepo MD Active LEVAQUIN 500 MG ORAL TABLET take one po QD LEVO FLOXACIN 86718784812 No Longer Active Griffin HERNANDEZ Active PREDNISONE 20 MG ORAL TABLET Take 3 tabs daily for 3 d ays, 2 tabs daily for 3 days, 1 tab daily for 3 days, 1/2 tab daily for 3 days 11/07 PREDNISONE 61373417626 No Longer Active Carlton Hu MD Acti ve AVELOX 400 MG ORAL TABLET 1 tab by mouth daily MOXIFLOXACIN HCL 14593891905 No Longer Active Carlton Hu MD Active CHERATUSSIN AC 100-10 MG/5ML ORAL SYRUP 1 tsp by mouth every 4 hours as needed for cough GUAIFENESIN-CODEINE 82175904461 No Longe r Active Hugo Restrepo MD Active AVELOX 400 MG ORAL TABLET 1 tab by mouth daily MOXIFLOXACIN HCL 04576024425 No Longer Active Marcy De La Rosa MD PhD Active TERBINAFINE HCL 250 MG ORAL TABLET 1 qDay T ERBINAFINE HCL 62590505722 No Longer Active Marcy De La Rosa MD PhD Active CHERATUSSIN AC 100-10 MG/5ML ORAL SYRUP 1 tsp by mouth every 4 hours as needed for cough GUAIFENESIN-CODEINE 08704370583 No Longe r Active Marcy De La Rosa MD PhD Active AVELOX 400 MG ORAL TABLET 1 tab by mouth daily MOXIFLOXACIN HCL 92245734205 No Longer Active Marcy De La Rosa MD PhD Active HYDROCODONE-ACETAMINOPHEN 5-325 MG ORAL TABLET 1 po q 6hr PRN co ugh HYDROCODONE-ACETAMINOPHEN 37266671354 No Longer Active Marcy De La Rosa MD PhD Active PREDNISONE 20 MG ORAL TABLET 2 tabs daily for 3 days, 1 tab daily for 3 days, 1/2 tab daily for 2 days PREDNISONE 54562813402 No Longer Active Carlton Hu MD Active CEFDINIR 300 MG ORAL CAPSULE by mouth twice a day 2011 CEFDINIR 20429071444 No Longer Active Carlton Hu MD Acti ve HYDROCHLOROTHIAZIDE 25 MG ORAL TABLET 1 TAB PO DAILY HYDROCHLOROTHIAZIDE 71246887884 Active Carlton Hu MD A ctive ACETAMINOPHEN-CODEINE #3 300-30 MG ORAL TABLET 1 tablet po q 4-6 hrs prn pain ACETAMINOPHEN-CODEINE 89112923727 No Longer Active Ridge Bess DO Active ZITHROMAX 250 MG ORAL TABLET 2 po today, then 1 po q days 2-5 20 03/07/07 AZITHROMYCIN 36142064714 No Longer Active Carlton Hu MD Active CHERATUSSIN AC 100-10 MG/5ML ORAL SYRUP take 1 tsp po q4-6 h ours prn cough GUAIFENESIN-CODEINE 99562945265 No Longer Active Jayden Hu MD Active ACETAMINOPHEN-CODEINE #3 300-30 MG ORAL TABLET 1 PO Q 4-6 HR PRN PAIN ACETAMINOPHEN-CODEINE 31589302731 No Longer Active Da raimundo Hu MD Active LORTAB 7.5-500 MG/15ML ORAL ELIXIR 7.5 ml po q 4 hour prn cough HYDROCODONE-ACETAMINOPHEN 84967243865 No Longer Active Carlton Hu MD Active PREDNISONE 20 MG ORAL TABLET 1 po bid 3 days, then 1 po q day 3 days PREDNISONE 05831249298 No Longer Active Carlton Hu MD Active CEFDINIR 300 MG ORAL CAPSULE by mouth twice a day 2011 CEFDINIR 84714616867 No Longer Active Carlton Hu MD Acti ve CEFDINIR 300 MG ORAL CAPSULE by mouth twice a day 2010 CEFDINIR 80921941302 No Longer Active Carlton Hu MD Acti ve CEFDINIR 300 MG ORAL CAPSULE by mouth twice a day 2010 CEFDINIR 87768691718 No Longer Active Carlton Hu MD Acti ve TESSALON PERLES 100 MG ORAL CAPSULE 1 tablet by mouth 3 times daily as needed for cough BENZONATATE 47174115192 No Longer Active Carlton Hu MD Active CEFDINIR 300 MG ORAL CAPSULE by mouth twice a day 2010 CEFDINIR 35488363387 No Longer Active Carlton Hu MD Acti ve ZITHROMAX Z-REYNA 250 MG ORAL TABLET 2 today, then 1 daily for 4 d ays AZITHROMYCIN 40261576768 No Longer Active Hugo Restrepo MD Active TESSALON PERLES 100 MG ORAL CAPSULE 1 tablet by mouth 3 times daily as needed for cough TESSALON PERLES 100 MG ORAL CAPSULE 41761 7 BENZONATATE Inactive PREDNISONE 20 MG ORAL TABLET 1 po bid 3 days, then 1 po q day 3 days PREDNISONE 20 MG ORAL TABLET 546012 PREDNISONE Greer ctive LORTAB 7.5-500 MG/15ML ORAL [...] cough CHERATUSSIN AC 100-10 MG/5ML ORAL SYRUP 952524 GUAIFENESIN-CODEINE Inactive ACETAMINOPHEN-CODEINE #3 300-30 MG ORAL TABLET 1 tablet po q 4-6 hrs prn pain ACETAMINOPHEN-CODEINE #3 300-30 MG ORAL TABLET ACETAMINOPHEN-CODEINE Inactive HYDROCODONE-ACETAMINOPHEN 5-325 MG ORAL TABLET 1 po q 6hr PRN co ugh HYDROCODONE-ACETAMINOPHEN 5-325 MG ORAL TABLET 284942 HYDROCODONE-ACETAMINOPHEN Inactive AVELOX 400 MG ORAL TABLET 1 tab by mouth daily AVELOX 400 MG ORAL TABLET 280191 MOXIFLOXACIN HCL Inactive CHERATUSSIN AC 100-10 MG/5ML ORAL SYRUP 1 tsp by mouth every 4 hours as needed for cough CHERATUSSIN AC 100-10 MG/5ML ORAL SYRUP 9 64161 GUAIFENESIN-CODEINE Inactive TERBINAFINE HCL 250 MG ORAL TABLET 1 qDay 07/08 TERBINAFINE HCL 250 MG ORAL TABLET 422396 TERBINAFINE HCL Inactive CHERATUSSIN AC 100-10 MG/5ML ORAL SYRUP 1 tsp by mouth every 4 hours as needed for cough CHERATUSSIN AC 100-10 MG/5ML ORAL SYRUP 9 33402 GUAIFENESIN-CODEINE Inactive ACETAMINOPHEN-CODEINE #3 300-30 MG ORAL TABLET 1 PO Q 4-6 HRS SD N PAIN ACETAMINOPHEN-CODEINE #3 300-30 MG ORAL TABLET ACETAMINOPHEN-CODEINE Inactive CHERATUSSIN AC 100-10 MG/5ML ORAL SYRUP 1 tsp by mouth every 4 hours as needed for cough CHERATUSSIN AC 100-10 MG/5ML ORAL SYRUP 9 69322 GUAIFENESIN-CODEINE Inactive AUGMENTIN 875-125 MG ORAL TABLET 1 tab by mouth twice daily with food AUGMENTIN 875-125 MG ORAL TABLET AMOXICIL MADELINE-POT CLAVULANATE Inactive CHERATUSSIN AC 100-10 MG/5ML ORAL SYRUP take one tsp po Q 6h ours prn cough CHERATUSSIN AC 100-10 MG/5ML ORAL SYRUP 707665 GUAIFENESIN-CODEINE Inactive PROPRANOLOL HCL 60 MG ORAL TABLET 1 PO Q D PROPRANOLOL HCL 60 MG ORAL TABLET 576598 PROPRANOLOL HCL Inactive TOPAMAX 50 MG ORAL TABLET take 1 tab po BID for migraines. 07/02 TOPAMAX 50 MG ORAL TABLET 273946 TOPIRAMATE Inacti ve TOPAMAX 25 MG ORAL TABLET 1 qHS x 1 week, then 1 BID x 1 week, then 1 qAM and 2 qHS x 1 week, then 2 BID (migraine prevention) TOPAMAX 25 MG ORAL TABLET 533948 TOPIRAMATE Inactive LYRICA 75 MG ORAL CAPSULE TAKE 1 CAPSULE BY MOUTH TWICE DAILY LYRICA 75 MG ORAL CAPSULE PREGABALIN Inactive SYMBICORT 160-4.5 MCG/ACT INHALATION AEROSOL 2 puffs bid wit h rinse after SYMBICORT 160-4.5 MCG/ACT INHALATION AEROSOL BUDESONIDE- FORMOTEROL FUMARATE Inactive PROMETHAZINE-CODEINE 6.25-10 MG/5ML ORAL SYRUP 1 tsp b y mouth every 8 hours prn cough PROMETHAZINE-CODEINE 6.25-10 MG/ 5ML ORAL SYRUP 233214 PROMETHAZINE-CODEINE Inactive CYMBALTA 30 MG ORAL CAPSULE DELAYED RELEASE PARTICLES 1 cap by mouth daily CYMBALTA 30 MG ORAL CAPSULE DELAYED RELE ASE PARTICLES 423663 DULOXETINE HCL Inactive PREMARIN 0.625 MG ORAL TABLET TAKE 1 TAB BY MOUTH DAILY PREMARIN 0.625 MG ORAL TABLET ESTROGENS CONJUGATED Inactive CHERATUSSIN AC 100-10 MG/5ML ORAL SYRUP 1 tsp by mouth every 4 hours as needed for cough CHERATUSSIN AC 100-10 MG/5ML ORAL SYRUP 9 22420 GUAIFENESIN-CODEINE Inactive PROMETHAZINE-CODEINE 6.25-10 MG/5ML ORAL SYRUP 1 tsp b y mouth every 6 hours if needed for cough PROMETHAZINE-CODEINE 6.25-10 MG/5ML ORAL SYRUP 410777 PROMETHAZINE-CODEINE Inactive CHERATUSSIN AC 100-10 MG/5ML ORAL SYRUP 1 tsp by mouth every 4 hours as needed for cough CHERATUSSIN AC 100-10 MG/5ML ORAL SYRUP 9 04073 GUAIFENESIN-CODEINE Inactive FLUTICASONE PROPIONATE 50 MCG/ACT NASAL SUSPENSION 1 t o 2 sprays each nostril daily FLUTICASONE PROPIONATE 50 MCG/AC T NASAL SUSPENSION 2809589 FLUTICASONE PROPIONATE Inactive PREDNISONE 20 MG ORAL TABLET 3 tab PO qd x 2d, 2 tab P O qd x 2d, 1 tab PO qd x 2d, 1/2 tab PO qd x 2d PREDNISONE 20 MG ORAL TAB LET 536602 PREDNISONE Inactive LEVOFLOXACIN 500 MG ORAL TABLET 1 tab PO daily x 10 days LEVOFLOXACIN 500 MG ORAL TABLET 296293 LEVOFLOXACIN Inactive CYCLOBENZAPRINE HCL 10 MG ORAL TABLET 1 tablet by mouth BID prn had pain CYCLOBENZAPRINE HCL 10 MG ORAL TABLET 634646 CYCLOBENZAPRINE HCL Inactive ZOCOR 40 MG ORAL TABLET 1 tab by mouth daily 4 ZOCOR 40 MG ORAL TABLET 948577 SIMVASTATIN Inactive TUSSIONEX PENNKINETIC ER 10-8 MG/5ML [...] FLUTICASONE PROPIO EFE 50 MCG/ACT NASAL SUSPENSION 8957434 FLUTICASONE PROPIONATE Inactive TUSSIONEX PENNKINETIC ER 10-8 [...] three days PREDNISONE 20 MG ORAL TABLET 787955 PREDNIS ONE Inactive PROAIR HFA 108 (90 BASE) MCG/ACT INHALATION AEROSOL SO LUTION 2 puffs four times a day as needed PROAIR HFA 108 (90 B ASE) MCG/ACT INHALATION AEROSOL SOLUTION ALBUTEROL SULFATE Inactive PREDNISONE 20 MG ORAL TABLET two tabs by mouth today, then one tab by mouth days two and three and four PREDNISONE 20 MG ORAL TAB LET 034325 PREDNISONE Inactive TUSSIONEX PENNKINETIC ER 10-8 MG/5ML [...] bid 04/20 TOPAMAX 100 MG ORAL TABLET 733348 TOPIRAMATE Inactive CYMBALTA 30 MG ORAL CAPSULE DELAYED RELEASE PARTICLES 1 cap by mouth daily for depression CYMBALTA 30 MG ORAL CAPSULE DELAYED RELEASE PARTICLES 130340 DULOXETINE HCL Inactive ZITHROMAX Z-REYNA 250 MG ORAL TABLET 2 today, then 1 daily for 4 d ays ZITHROMAX Z-REYNA 250 MG ORAL TABLET 591416 AZITHROMYCIN Inactive CEFDINIR 300 MG ORAL CAPSULE [...] 20 03/07/07 ZITHROMAX 250 MG ORAL TABLET 311698 AZITHROMYCIN Greer ctive CEFDINIR 300 MG ORAL CAPSULE by mouth twice a day 2011 CEFDINIR 300 MG ORAL CAPSULE 878328 CEFDINIR Inactive PREDNISONE 20 MG ORAL TABLET 2 tabs daily for 3 days, 1 tab daily for 3 days, 1/2 tab daily for 2 days PREDNISONE 20 MG ORAL T ABLET 654832 PREDNISONE Inactive AVELOX 400 MG ORAL TABLET 1 tab by mouth daily AVELOX 400 MG ORAL TABLET 995175 MOXIFLOXACIN HCL Inactive AVELOX 400 MG ORAL TABLET 1 tab by mouth daily AVELOX 400 MG ORAL TABLET 159454 MOXIFLOXACIN HCL Inactive PREDNISONE 20 MG ORAL TABLET Take 3 tabs daily for 3 d ays, 2 tabs daily for 3 days, 1 tab daily for 3 days, 1/2 tab daily for 3 days 11/07 PREDNISONE 20 MG ORAL TABLET 658077 PREDNISONE Inactive LEVAQUIN 500 MG ORAL TABLET take one po QD LEVAQUIN 500 MG ORAL TABLET 074239 LEVOFLOXACIN Inactive AZITHROMYCIN 250 MG ORAL TABLET 2 po qd x 1 day, then 1 po q d x 4 days AZITHROMYCIN 250 MG ORAL TABLET 726971 AZITHROMY GIOVANNI Inactive MEDROL 4 MG ORAL TABLET THERAPY PACK 6 tabs on day 1, 5 tabs on day 2, 4 tabs on day 3, 3 tabs on day 4, 2 tabs on day 5, 1 tab on day 6 2013 MEDROL 4 MG ORAL TABLET THERAPY PACK 336454 METHYLPREDNISOLONE [place] ctive CHERATUSSIN AC 100-10 MG/5ML ORAL SYRUP 5ml po q6hr PRN Cough 20 13/04/14 CHERATUSSIN AC 100-10 MG/5ML ORAL SYRUP 267458 GUAIFENE SIN-CODEINE Inactive TRIAMCINOLONE ACETONIDE 0.1 % EXTERNAL CREAM apply three roger es daily prn rash TRIAMCINOLONE ACETONIDE 0.1 % EXTERNAL CREAM 101 4314 TRIAMCINOLONE ACETONIDE Inactive AZITHROMYCIN 250 MG ORAL TABLET 2 po qd x 1 day, then 1 po q d x 4 days AZITHROMYCIN 250 MG ORAL TABLET 000143 AZITHROMY GIOVANNI Inactive MEDROL 4 MG ORAL TABLET THERAPY PACK 6 pills x 1 day, then 5 pills x 1 day then 4 pills x 1 day, then 3 pills x 1 day, then 2 pills x 1 day, then 1 pill x 1 day, then stop MEDROL 4 MG ORAL TABLET THERAPY PACK [id number] METHYLPREDNISOLONE Inactive AMOXICILLIN 500 MG ORAL CAPSULE 1 tab by mouth 3 times daily x 10 days AMOXICILLIN 500 MG ORAL CAPSULE 025495 AMOXICILL IN Inactive AMOXICILLIN 500 MG ORAL CAPSULE 1 tab by mouth 3 times daily x 10 days AMOXICILLIN 500 MG ORAL CAPSULE 595259 AMOXICILL IN Inactive ZITHROMAX 250 MG ORAL TABLET 2 po today, then 1 po q days 2-5 20 12/08/14 ZITHROMAX 250 MG ORAL TABLET 856125 AZITHROMYCIN [place] [facility] AUGMENTIN 875-125 MG ORAL TABLET 1 po BID x 10 days 20 13/01/20 AUGMENTIN 875-125 MG ORAL TABLET AMOXICILLIN-POT CLAVULANATE Inactive ZITHROMAX Z-REYNA 250 MG ORAL TABLET 2 today, then 1 daily for 4 d ays ZITHROMAX Z-REYNA 250 MG ORAL TABLET [id number] AZITHROMYCIN Inactive ZITHROMAX 250 MG ORAL TABLET 2 po today, then 1 po q days 2-5 20 14/03/21 ZITHROMAX 250 MG ORAL TABLET 841395 AZITHROMYCIN [place] [facility] ZITHROMAX Z-REYNA 250 MG ORAL TABLET 2 today, then 1 daily for 4 d ays ZITHROMAX Z-REYNA 250 MG ORAL TABLET 704522 AZITHROMYCIN Inactive CEFDINIR 300 MG ORAL CAPSULE 1 po BID x 10 days 06/21 CEFDINIR 300 MG ORAL CAPSULE 20020704 CEFDINIR Inactive ZITHROMAX 250 MG ORAL TABLET 2 po today, then 1 po q days 2-5 20 13/08/10 ZITHROMAX 250 MG ORAL TABLET 415667 AZITHROMYCIN [facility] LEVAQUIN 500 MG ORAL TABLET 1 tablet by mouth daily 13/09/24 LEVAQUIN 500 MG ORAL TABLET 19971102 LEVOFLOXACIN Inactive SINGULAIR 10 MG ORAL TABLET 1 po qday for allergies 14/01/12 SINGULAIR 10 MG ORAL TABLET 20010504 MONTELUKAST SODIUM Inactive AMOXICILLIN 500 MG ORAL CAPSULE 2 po BID x 10 days 201 09/29/08 AMOXICILLIN 500 MG ORAL CAPSULE 414334 AMOXICILLIN Inactive PREDNISONE 20 MG ORAL TABLET 2 tabs daily for 3 days, 1 tab daily for 3 days, 1/2 tab daily for 2 days PREDNISONE 20 MG ORAL T ABLET 609927 PREDNISONE Inactive ZITHROMAX Z-REYNA 250 MG ORAL TABLET 2 today, then 1 daily for 4 d ays ZITHROMAX Z-REYNA 250 MG ORAL TABLET 082020 AZITHROMYCIN Inactive PREDNISONE 20 MG ORAL TABLET 2 tabs daily for 3 days, 1 tab daily for 3 days, 1/2 tab daily for 2 days PREDNISONE 20 MG ORAL T ABLET 917756 PREDNISONE Inactive ZITHROMAX 250 MG ORAL TABLET 2 po today, then 1 po q days 2-5 20 14/09/04 ZITHROMAX 250 MG ORAL TABLET 553484 AZITHROMYCIN [place] [facility] AMOXICILLIN 500 MG ORAL CAPSULE 1 cap by mouth three times a day AMOXICILLIN 500 MG ORAL CAPSULE 770525 AMOXICILLIN Inactive TERBINAFINE HCL 250 MG ORAL TABLET 1 qDay for nail fungus 7 TERBINAFINE HCL 250 MG ORAL TABLET 777946 TERBINAFINE HCL Inact nael AUGMENTIN 875-125 MG ORAL TABLET 1 po BID x 10 days 16/03/22 AUGMENTIN 875-125 MG ORAL TABLET AMOXICILLIN-POT CLAVULANATE Inactive PREDNISONE 20 MG ORAL TABLET 2 po qd x 5 days PREDNISONE 20 MG ORAL TABLET 690969 PREDNISONE Inactive AZITHROMYCIN 250 MG ORAL TABLET 2 po qd x 1 day, then 1 po q d x 4 days AZITHROMYCIN 250 MG ORAL TABLET 606846 AZITHROMY GIOVANNI Inactive PREDNISONE 50 MG ORAL TABLET Take 50 mg dialy for 6 day s 7 PREDNISONE 50 MG ORAL TABLET 808010 PREDNISONE Inactive AUGMENTIN 875-125 MG ORAL TABLET 1 po BID x 10 days 18/04/16 AUGMENTIN 875-125 MG ORAL TABLET AMOXICILLIN-POT CLAVULANATE Inactive DOXYCYCLINE HYCLATE 100 MG ORAL CAPSULE 1 cap by mouth twice latasha ly DOXYCYCLINE HYCLATE 100 MG ORAL CAPSULE 0770840 DOXYCYCL INE HYCLATE Inactive PREDNISONE 20 MG ORAL TABLET Take 2 tabs day 1 and 2 and 1 t ab days 3 and 4 PREDNISONE 20 MG ORAL TABLET 717923 PREDNISONE Inactive Vital Signs Date Name Value [...] d blood pressure, diastolic 75 mm[Hg] BP srinivasna blood pressure, systolic 110 mm[Hg] BP sys height E&M 53 [in_us] Bdy height pulse rate E&M 98 /min Heart rate temperature E&M 97.7 [degF] Body temp erature weight E&M 140.50 [lb_av] Weight Measure d Diagnostic Results Date Name Value Unit Range Description Lab Report: Basic Metabolic Panel - Chem istry sodium, serum 139 mmol/L 681-155 0580/10/12 potassium, serum 3.8 mmol/L 3.5-5.2 chloride, serum [...] negative Encounters Code Encounter Date Provider Facility CPT-20530 Level 3 Est. Patient 16:08:07 CDT David lion [facility] CPT-77602 Level 3 Est. Patient 16:53:54 CDT May haas MD [facility] CPT-18205 [id number] Vst-Est Level IV 08:41:[address] Carlton Hu MD [facility] CPT-49478 Level 3 Est. Patient 09:46:49 WORK STUDY STUDENT David loin [facility] CPT-77924 [id number] Vst-Est Level III 11:12:16 CDT Yanet Bess DO [facility] CPT-48244 Level 3 Est. Patient 11:34:49 WORK STUDY STUDENT Perez Mora MD [facility] CPT-63765 Level 4 Est. Patient 09:51:32 WORK STUDY STUDENT Carlton rich MD [facility] CPT-73608 Level 3 Est. Patient 10:26:00 WORK STUDY STUDENT Elise stephenson [facility] CPT-27245 Level 3 Est. Patient 13:35:41 WORK STUDY STUDENT Carlton rich MD [facility] CPT-96147 Level 3 Est. Patient 10:03:52 WORK STUDY STUDENT Carlton rich MD [facility] CPT-64744 Level 3 Est. Patient 12:17:50 CDT Hugo Restrepo MD [facility] CPT-05280 Level 3 Est. Patient 13:42:38 CDT Elise stephenson [facility] CPT-68056 Level 3 Est. Patient 13:23:51 CDT Diya cobian [facility] CPT-56915 Level 3 Est. Patient 14:22:19 WORK STUDY STUDENT Diya cobian [facility] CPT-67869 Level 3 Est. Patient 10:11:46 CDT Carlton rich MD [facility] CPT-14031 Level 3 Est. Patient 17:29:43 CDT Elise Are ll MANAGER TRAINING [facility] CPT-08867 Level 3 Est. Patient 11:58:06 CDT Elise Are ll [facility] CPT-04049 Level 4 Est. Patient 14:36:51 CDT Carlton rich MD [facility] CPT-53216 Level 3 Est. Patient 18:16:00 WORK STUDY STUDENT Blaine Freeman [facility] CPT-37499 Level 3 Est. Patient 09:45:49 WORK STUDY STUDENT Carlton rich MD [facility] CPT-13834 Level 3 Est. Patient 13:19:20 CDT Carlton rich MD [facility] CPT-98099 Level 3 Est. Patient 13:06:43 CDT Ridge tam DO [facility] CPT-82582 Level 3 Est. Patient 10:03:07 CDT Perez Mora MD [facility] CPT-72098 Level 3 Est. Patient 19:50:35 WORK STUDY STUDENT Carlton rich MD [facility] CPT-57631 Level 4 Est. Patient 18:05:01 WORK STUDY STUDENT Carlton rich MD [facility] CPT-75673 Level 3 Est. Patient 10:45:55 WORK STUDY STUDENT Hugo Restrepo MD [facility] CPT-87162 Level 3 Est. Patient 14:12:49 CDT Griffin lincoln [facility] CPT-88952 Level 3 Est. Patient 17:37:24 CDT Carlton rich MD [facility] CPT-63271 Level 3 Est. Patient 16:51:54 CDT Carlton rich MD [facility] CPT-87460 Level 3 Est. Patient 12:18:11 CDT Hugo Restrepo MD [facility] CPT-49952 Level 3 Est. Patient 11:30:25 CDT Marcy crisostomo MD PhD [facility] CPT-02000 Level 3 Est. Patient 12:00:47 WORK STUDY STUDENT Carlton rich MD [facility] CPT-57514 Level 3 Est. Patient 16:31:06 WORK STUDY STUDENT Carlton rich MD [facility] CPT-69860 Level 3 Est. Patient 16:23:24 WORK STUDY STUDENT Ridge tam [facility] CPT-61971 Level 3 Est. Patient 12:34:12 CDT Carlton rich MD [facility] CPT-36497 Level 2 Est. Patient 15:43:33 CDT Robi armstrong MD [facility] CPT-66320 Level 4 Est. Patient 14:04:44 CDT Carlton rich MD [facility] CPT-03373 Level 3 Est. Patient 05:47:59 CDT Ridge tam [facility] CPT-23256 Level 3 Est. Patient 13:12:53 WORK STUDY STUDENT Carlton rich MD [facility] CPT-84420 Level 3 Est. Patient 14:26:53 CDT Hugo Restrepo MD [facility] Procedures Code Procedure Name Date Entry Date Standard Desc ription CPT-000 Give Appropriate Flu Vaccine 14:14:31 CDT 2 CPT-J1040 Depo Medrol 80 mg (Methyl Prednisolone A cetate) 10:42:44 CDT CPT-J1100 Decadron 8mg (Dexamethasone) 10:42:44 CDT 2 CPT-J0696 Rocephin 1gm Inj Solr 14:32:13 CDT CPT-J1020 Depo Medrol 60 mg (Methyl Prednisolone A cetate) 14:32:13 CDT CPT-J1100 Decadron 6mg (Dexamethasone) 14:32:13 CDT 2 CPT-30085 Hip bilat min 2V w AP pelvis 13:16:20 CDT 2 CPT-23894 Pelvis only 13:07:33 CDT CPT-56979 Spec Collection and Handling Fee 11:25:12 C DT CPT-07937 Fluzone Quadrivalent Intramuscular Suspe nsion 0.5 ML 14:31:55 CDT CPT-85842 Abx/Therapy Injection 13:28:47 WORK STUDY STUDENT CPT-J2930 Solu Medrol 125 mg (Methyl Prednisolone Sodium Succinate) 12:00:47 WORK STUDY STUDENT CPT-02141 Venipuncture Draw Fee 11:33:31 CDT CPT-15897 EKG Trac and Interp 11:21:09 CDT CPT-33857 Chest 2V Frontal and Lat 11:21:09 CDT 12/15 CPT-11508 Venipuncture Draw Fee 08:02:34 CDT CPT-47733 Chest 2V Frontal and Lat 05:47:59 CDT 06/05
--- OUTSIDE RECORDS SUMMARY | 2019-10-08 09:00 | XMS REPORT | Clinical Summary ---
Author Author Caitlin, Juliana Martinez Organization [facility] Address Unknown Phone Unavailable [...] Acute pharyngitis Rhinitis, acute 460 Resolved uHgo Means Acute nasopharyngitis [common cold] Sinusitis 473.9 [...] URI 465.9 Inactive Ridge Bess DO Ac [place] upper respiratory infections of unspecified site Body [...] PhD 201 06/01/09 SINUSITIS ICD-473.9 Inactive Marcy eD La Rosa MD Ph D CONTACT DERMATITIS [...] for up 2 weeks TRIAMCINOLONE ACETON KAYLA [id number] Active David Marianne DIRECTOR OF ACADEMIC Active AMOXICILLIN 500 MG ORAL CAPSULE 1 cap by mouth twice daily 10/21 AMOXICILLIN 88770815283 Active David Marianne DIRECTOR OF ACADEMIC Activ e ELMIRON 100 MG ORAL CAPSULE 2 capsules in the morning and 1 capsule at night PENTOSAN POLYSULFATE SODIUM 79966540645 Active Cinthia H art [employer] Active CYMBALTA 30 MG ORAL CAPSULE DELAYED RELEASE PARTICLES 1 cap by mouth daily for depression DULOXETINE HCL 13655664135 No Longer Active Carlton Hu MD Active CYMBALTA 60 MG ORAL CAPSULE DELAYED RELEASE PARTICLES 1 cap by mouth daily for mood and pain DULOXETINE HCL 54204276656 Active Carlton Hu MD Active TUSSIONEX PENNKINETIC ER 10-8 MG/5ML ORAL SUSPENSION E XTENDED RELEASE 5ml po q12hr PRN Cough HYDROCOD POLST-CHLORPHEN POLST 04656849128 Active David Marianne DIRECTOR OF ACADEMIC Active PREDNISONE 20 MG ORAL TABLET Take 2 tabs day 1 and 2 and 1 t ab days 3 and 4 PREDNISONE 83318922969 No Longer Active David Marianne DIRECTOR OF ACADEMIC Active DOXYCYCLINE HYCLATE 100 MG ORAL CAPSULE 1 cap by mouth twice latasha ly DOXYCYCLINE HYCLATE 72092325163 No Longer Active David Marianne DIRECTOR OF ACADEMIC Active TOPAMAX 100 MG ORAL TABLET Take 1 tablet po bid TOPIRAMATE 36929273832 No Longer Active David Marianne DIRECTOR OF ACADEMIC Active TUSSIONEX PENNKINETIC ER 10-8 MG/5ML ORAL SUSPENSION E XTENDED RELEASE 5ml po q12hr PRN Cough HYDROCOD POLST-CHLORPHEN POLST 5 4297845831 No Longer Active David Marianne DIRECTOR OF ACADEMIC Active AUGMENTIN 875-125 MG ORAL TABLET 1 po BID x 10 days 18/04/16 AMOXICILLIN-POT CLAVULANATE 96766631079 No Longer Active David Lopes APRN Active PREDNISONE 50 MG ORAL TABLET Take 50 mg dialy for 6 day s 7 PREDNISONE 74629696287 No Longer Active David Marianne DIRECTOR OF ACADEMIC Active TUSSIONEX PENNKINETIC ER 10-8 MG/5ML ORAL SUSPENSION E XTENDED RELEASE 5ml po q12hr PRN Cough HYDROCOD POLST-CHLORPHEN POLST 5 3385770191 No Longer Active Cherelle Torres RN Active PREDNISONE 20 MG ORAL TABLET two tabs by mouth today, then one tab by mouth days two and three and four PREDNISONE 70397892637 No Lo nger Active Cherelle Torres RN Active AZITHROMYCIN 250 MG ORAL TABLET 2 po qd x 1 day, then 1 po q d x 4 days AZITHROMYCIN 99880592452 No Longer Active Ridge Bess DO Active PREDNISONE 20 MG ORAL TABLET 2 po qd x 5 days P REDNISONE 96815739131 No Longer Active Perez Mora MD Active PROAIR HFA 108 (90 BASE) MCG/ACT INHALATION AEROSOL SO LUTION 2 puffs four times a day as needed ALBUTEROL SULFATE 39759234497 No Long er Active Becky FUENTES Active ASPIRIN 81 MG ORAL TABLET 1 po qd ASPIRIN 97417467689 Active Carlton Hu MD Active PREDNISONE 20 MG ORAL TABLET 1 tab twice daily for 3 d ay, then one daily for three days PREDNISONE 34750289022 No Longer Active Carlton Hu MD Active AUGMENTIN 875-125 MG ORAL TABLET 1 po BID x 10 days 20 16/03/22 AMOXICILLIN-POT CLAVULANATE 68221374787 No Longer Active Elise Garcia APRN Active TERBINAFINE HCL 250 MG ORAL TABLET 1 qDay for nail fungus 7 TERBINAFINE HCL 01669607651 No Longer Active Carlton Hu MD A ctive AMOXICILLIN 500 MG ORAL CAPSULE 1 cap by mouth three times a day AMOXICILLIN 57112466717 No Longer Active Carlton Hu MD Active ELMIRON 100 MG ORAL CAPSULE 2 tablets in the am and 1 tablet at hs PENTOSAN POLYSULFATE SODIUM 95160996511 No Longer Active Robert Hu MD Active MUCINEX D 60-600 MG ORAL TABLET EXTENDED RELEASE 12 HOUR 1 t ab po q am PSEUDOEPHEDRINE-GUAIFENESIN 18432288854 No Longer Act nael Carlotn Hu MD Active MUCINEX DM MAXIMUM STRENGTH 60-1200 MG ORAL TABLET EXT ENDED RELEASE 12 HOUR 1 tab po q am DEXTROMETHORPHAN-GUAIFENESIN 58825219891 No Longer Active Carlton Hu MD Active TUSSIONEX PENNKINETIC ER 10-8 MG/5ML ORAL SUSPENSION E XTENDED RELEASE 5ml po q12hr PRN Cough HYDROCOD POLST-CHLORPHEN POLST 5 4622966135 No Longer Active Carlton Hu MD Active POTASSIUM CHLORIDE ER 20 MEQ ORAL TABLET EXTENDED RELE ASE Take 1 by mouth 4 times daily for 7 days POTASSIUM CHLORIDE 30008205786 No Longer Active Carlton Hu MD Active ZITHROMAX 250 MG ORAL TABLET 2 po today, then 1 po q days 2-5 14/09/04 AZITHROMYCIN 34685225633 No Longer Active Elise Garcia APRN Active TUSSIONEX PENNKINETIC ER 10-8 MG/5ML ORAL SUSPENSION E XTENDED RELEASE 5 ml twice a day as needed for cough HYDROCOD POLST-CHLORPH EN POLST 03145415033 No Longer Active Elise Garcia APRN Active MONTELUKAST SODIUM 10 MG ORAL TABLET 1 po daily for Allergy MONTELUKAST SODIUM 02603241100 Active Carlton Hu MD Ac tive TUSSIONEX PENNKINETIC ER 10-8 MG/5ML ORAL SUSPENSION E XTENDED RELEASE 5ml po q12hr PRN Cough HYDROCOD POLST-CHLORPHEN POLST 5 6090012916 No Longer Active Hugo Restrepo MD Active GABAPENTIN 100 MG ORAL CAPSULE 1 po BID for fibromyalgia GABAPENTIN 96717797085 Active ALFREDO Holly Active LYRICA 100 MG ORAL CAPSULE Take 1 tab po BID for fibromyalgia 20 11/08/21 PREGABALIN 92605357983 No Longer Active Elise Garcia APRN A ctive PREDNISONE 20 MG ORAL TABLET 2 tabs daily for 3 days, 1 tab daily for 3 days, 1/2 tab daily for 2 days PREDNISONE 44940921300 No Longer Active Jillina Frazell DIRECTOR OF ACADEMIC Active TUSSIONEX PENNKINETIC ER 10-8 MG/5ML ORAL SUSPENSION E XTENDED RELEASE 5 mL PO q 12 hrs PRN cough HYDROCOD POLST-CHLORPHEN POLST 978360 20018 No Longer Active Jillina Frazell DIRECTOR OF ACADEMIC Active FLUTICASONE PROPIONATE 50 MCG/ACT NASAL SUSPENSION 2 s prays each nostril daily until bottle is empty FLUTICASONE PROPIONATE 611052029 99 No Longer Active Jillina Frazell DIRECTOR OF ACADEMIC Active ASMANEX 60 METERED DOSES 220 MCG/INH INHALATION AEROSO L POWDER BREATH ACTIVATED 1 puff bid with rinse after MOMETASONE FUROATE 1515014 4102 No Longer Active Jillina Frazell DIRECTOR OF ACADEMIC Active ZITHROMAX Z-REYNA 250 MG ORAL TABLET 2 today, then 1 daily for 4 d ays AZITHROMYCIN 26926190700 No Longer Active Elise Garcia DIRECTOR OF ACADEMIC Active TUSSIONEX PENNKINETIC ER 10-8 MG/5ML ORAL SUSPENSION E XTENDED RELEASE 5ml po q12hr PRN Cough HYDROCOD POLST-CHLORPHEN POLST 5 0900363136 No Longer Active Elise Garcia APRN Active PREDNISONE 20 MG ORAL TABLET 2 tabs daily for 3 days, 1 tab daily for 3 days, 1/2 tab daily for 2 days PREDNISONE 62082586212 No Longer Active Jillina Frazell DIRECTOR OF ACADEMIC Active AMOXICILLIN 500 MG ORAL CAPSULE 2 po BID x 10 days 201 09/29/08 AMOXICILLIN 09768093444 No Longer Active Diya De Guzman DIRECTOR OF ACADEMIC Act nael SINGULAIR 10 MG ORAL TABLET 1 po qday for allergies 14/01/12 MONTELUKAST SODIUM 04488114330 No Longer Active Carlton Hu MD Active LEVAQUIN 500 MG ORAL TABLET 1 tablet by mouth daily 13/09/24 LEVOFLOXACIN 02900972699 No Longer Active Carlton Hu MD Acti ve FLUTICASONE PROPIONATE 50 MCG/ACT NASAL SUSPENSION 2 s prays each nostril daily for 2 weeks, then 1 spray each nostril daily. FLUTICASONE PROPIONATE 33902684873 Active Carlton Hu MD Active ZITHROMAX 250 MG ORAL TABLET 2 po today, then 1 po q days 2-5 20 13/08/10 AZITHROMYCIN 52434210954 No Longer Active Elise Garcia APRN Active XANAX 0.5 MG ORAL TABLET one tablet by mouth daily prn anxiety 2015 ALPRAZOLAM 49391457439 Active ALFREDO Holly Active CEFDINIR 300 MG ORAL CAPSULE 1 po BID x 10 days CEFDINIR 63667328060 No Longer Active Carlton Hu MD Active ZOCOR 40 MG ORAL TABLET 1 tab by mouth daily SI MVASTATIN 97801308379 No Longer Active Carlton Hu MD Active CYCLOBENZAPRINE HCL 10 MG ORAL TABLET 1 tablet by mouth BID prn had pain CYCLOBENZAPRINE HCL 11833547247 No Longer Active Jayden Hu MD Active LEVOFLOXACIN 500 MG ORAL TABLET 1 tab PO daily x 10 days LEVOFLOXACIN 29043373175 No Longer Active Carlton Hu MD Acti ve PREDNISONE 20 MG ORAL TABLET 3 tab PO qd x 2d, 2 tab P O qd x 2d, 1 tab PO qd x 2d, 1/2 tab PO qd x 2d PREDNISONE 09429469108 No Lo nger Active Carlton Hu MD Active FLUTICASONE PROPIONATE 50 MCG/ACT NASAL SUSPENSION 1 t o 2 sprays each nostril daily FLUTICASONE PROPIONATE 27448208795 No Longer Ac tive Blaine HERNANDEZ Active CHERATUSSIN AC 100-10 MG/5ML ORAL SYRUP 1 tsp by mouth every 4 hours as needed for cough GUAIFENESIN-CODEINE 36048486365 No Longe r Active Blaine HERNANDEZ Active PROMETHAZINE-CODEINE 6.25-10 MG/5ML ORAL SYRUP 1 tsp b y mouth every 6 hours if needed for cough PROMETHAZINE-CODEINE 56646257200 No Longer Active Blaine HERNANDEZ Active CHERATUSSIN AC 100-10 MG/5ML ORAL SYRUP 1 tsp by mouth every 4 hours as needed for cough GUAIFENESIN-CODEINE 98489272724 No Longe r Active Blaine HERNANDEZ Active ZITHROMAX Z-REYNA 250 MG ORAL TABLET 2 today, then 1 daily for 4 d ays AZITHROMYCIN 84642337778 No Longer Active Columba Raida Act nael ZITHROMAX 250 MG ORAL TABLET 2 po today, then 1 po q days 2-5 20 14/03/21 AZITHROMYCIN 34753781878 No Longer Active Carlton Hu MD Active ZITHROMAX Z-REYNA 250 MG ORAL TABLET 2 today, then 1 daily for 4 d ays AZITHROMYCIN 38822809718 No Longer Active Columba Raida Act nael AUGMENTIN 875-125 MG ORAL TABLET 1 po BID x 10 days 13/01/20 AMOXICILLIN-POT CLAVULANATE 53466282562 No Longer Active Diya De Guzman APRN Active ZITHROMAX 250 MG ORAL TABLET 2 po today, then 1 po q days 2-5 20 12/08/14 AZITHROMYCIN 18167932110 No Longer Active Carlton Hu MD Active TRAMADOL HCL 50 MG ORAL TABLET 1 po tid with ES Tylenol TRAMADOL HCL 95090060647 Active Carlton Hu MD Active PREMARIN 0.625 MG ORAL TABLET TAKE 1 TAB BY MOUTH DAILY ESTROGENS CONJUGATED 71958615819 No Longer Active Ridge Bess DO A ctive CYMBALTA 30 MG ORAL CAPSULE DELAYED RELEASE PARTICLES 1 cap by mouth daily DULOXETINE HCL 66412636883 No Longer Active Ridge Ya ee DO Active AMOXICILLIN 500 MG ORAL CAPSULE 1 tab by mouth 3 times daily x 10 days AMOXICILLIN 10040975821 No Longer Active Carlton bustamante MD Active AMOXICILLIN 500 MG ORAL CAPSULE 1 tab by mouth 3 times daily x 10 days AMOXICILLIN 35103950476 No Longer Active Carlton bustamante MD Active PROMETHAZINE-CODEINE 6.25-10 MG/5ML ORAL SYRUP 1 tsp b y mouth every 8 hours prn cough PROMETHAZINE-CODEINE 82824635736 No Longer Acti ve Carlton Hu MD Active MEDROL 4 MG ORAL TABLET THERAPY PACK 6 pills x 1 day, then 5 pills x 1 day then 4 pills x 1 day, then 3 pills x 1 day, then 2 pills x 1 day, then 1 pill x 1 day, then stop METHYLPREDNISOLONE 24659395479 No Long er Active Perez Mora MD Active AZITHROMYCIN 250 MG ORAL TABLET 2 po qd x 1 day, then 1 po q d x 4 days AZITHROMYCIN 90077478908 No Longer Active Perez Ambriz MD Active SYMBICORT 160-4.5 MCG/ACT INHALATION AEROSOL 2 puffs bid wit h rinse after BUDESONIDE-FORMOTEROL FUMARATE 20102695346 N o Longer Active Perez Mora MD Active LYRICA 75 MG ORAL CAPSULE TAKE 1 CAPSULE BY MOUTH TWICE DAILY PREGABALIN 92233764002 No Longer Active Carlton Hu MD Acti ve TOPAMAX 25 MG ORAL TABLET 1 qHS x 1 week, then 1 BID x 1 week, then 1 qAM and 2 qHS x 1 week, then 2 BID (migraine prevention) T OPIRAMATE 71603787232 No Longer Active Jerica FUENTES Active TOPAMAX 50 MG ORAL TABLET take 1 tab po BID for migraines. 07/02 TOPIRAMATE 69696363335 No Longer Active Jerica FUENTES Active TRIAMCINOLONE ACETONIDE 0.1 % EXTERNAL CREAM apply three roger es daily prn rash TRIAMCINOLONE ACETONIDE 54706699735 No Longer Active Carlton Hu MD Active PAXIL 40 MG ORAL TABLET take 1 tab po qday for depression 0 PAROXETINE HCL 41917725741 Active Carlton Hu MD Active CHERATUSSIN AC 100-10 MG/5ML ORAL SYRUP 5ml po q6hr PRN Cough 20 13/04/14 GUAIFENESIN-CODEINE 65370381481 No Longer Active Carlton Hu MD Active MEDROL 4 MG ORAL TABLET THERAPY PACK 6 tabs on day 1, 5 tabs on day 2, 4 tabs on day 3, 3 tabs on day 4, 2 tabs on day 5, 1 tab on day 6 2013 METHYLPREDNISOLONE 99563105536 No Longer Active Perez Mora MD Active AZITHROMYCIN 250 MG ORAL TABLET 2 po qd x 1 day, then 1 po q d x 4 days AZITHROMYCIN 53283946721 No Longer Active Perez Ambriz MD Active PROPRANOLOL HCL 60 MG ORAL TABLET 1 PO Q D PROPRANOLOL HCL 93937431322 No Longer Active Perez Mora MD Activ e CHERATUSSIN AC 100-10 MG/5ML ORAL SYRUP take one tsp po Q 6h ours prn cough GUAIFENESIN-CODEINE 28880036828 No Longer Active Zia Mora MD Active AUGMENTIN 875-125 MG ORAL TABLET 1 tab by mouth twice daily with food AMOXICILLIN-POT CLAVULANATE 41604165040 No Longer Act nael Perez Mora MD Active CHERATUSSIN AC 100-10 MG/5ML ORAL SYRUP 1 tsp by mouth every 4 hours as needed for cough GUAIFENESIN-CODEINE 66822086010 No Longe r Active Hugo Restrepo MD Active ACETAMINOPHEN-CODEINE #3 300-30 MG ORAL TABLET 1 PO Q 4-6 HRS ID N PAIN ACETAMINOPHEN-CODEINE 63606859871 No Longer Active Hugo Restrepo MD Active LEVAQUIN 500 MG ORAL TABLET take one po QD LEVO FLOXACIN 08536209755 No Longer Active Griffin HERNANDEZ Active PREDNISONE 20 MG ORAL TABLET Take 3 tabs daily for 3 d ays, 2 tabs daily for 3 days, 1 tab daily for 3 days, 1/2 tab daily for 3 days 11/07 PREDNISONE 33422992026 No Longer Active Carlton Hu MD Acti ve AVELOX 400 MG ORAL TABLET 1 tab by mouth daily MOXIFLOXACIN HCL 16128731520 No Longer Active Carlton Hu MD Active CHERATUSSIN AC 100-10 MG/5ML ORAL SYRUP 1 tsp by mouth every 4 hours as needed for cough GUAIFENESIN-CODEINE 70233536390 No Longe r Active Hugo Restrepo MD Active AVELOX 400 MG ORAL TABLET 1 tab by mouth daily MOXIFLOXACIN HCL 63884696291 No Longer Active Marcy De La Rosa MD PhD Active TERBINAFINE HCL 250 MG ORAL TABLET 1 qDay T ERBINAFINE HCL 80759519910 No Longer Active Marcy De La Rosa MD PhD Active CHERATUSSIN AC 100-10 MG/5ML ORAL SYRUP 1 tsp by mouth every 4 hours as needed for cough GUAIFENESIN-CODEINE 60938416614 No Longe r Active Marcy De La Rosa MD PhD Active AVELOX 400 MG ORAL TABLET 1 tab by mouth daily MOXIFLOXACIN HCL 45595893346 No Longer Active Marcy De La Rosa MD PhD Active HYDROCODONE-ACETAMINOPHEN 5-325 MG ORAL TABLET 1 po q 6hr PRN co ugh HYDROCODONE-ACETAMINOPHEN 04490414783 No Longer Active Marcy De La Rosa MD PhD Active PREDNISONE 20 MG ORAL TABLET 2 tabs daily for 3 days, 1 tab daily for 3 days, 1/2 tab daily for 2 days PREDNISONE 99979473310 No Longer Active Carlton Hu MD Active CEFDINIR 300 MG ORAL CAPSULE by mouth twice a day 2011 CEFDINIR 43221099419 No Longer Active Carlton Hu MD Acti ve HYDROCHLOROTHIAZIDE 25 MG ORAL TABLET 1 TAB PO DAILY HYDROCHLOROTHIAZIDE 99552727889 Active Carlton Hu MD A ctive ACETAMINOPHEN-CODEINE #3 300-30 MG ORAL TABLET 1 tablet po q 4-6 hrs prn pain ACETAMINOPHEN-CODEINE 32784711166 No Longer Active Ridge Bess DO Active ZITHROMAX 250 MG ORAL TABLET 2 po today, then 1 po q days 2-5 20 03/07/07 AZITHROMYCIN 26304021088 No Longer Active Carlton Hu MD Active CHERATUSSIN AC 100-10 MG/5ML ORAL SYRUP take 1 tsp po q4-6 h ours prn cough GUAIFENESIN-CODEINE 68538511090 No Longer Active Jayden Hu MD Active ACETAMINOPHEN-CODEINE #3 300-30 MG ORAL TABLET 1 PO Q 4-6 HR PRN PAIN ACETAMINOPHEN-CODEINE 02015798262 No Longer Active Da raimundo Hu MD Active LORTAB 7.5-500 MG/15ML ORAL ELIXIR 7.5 ml po q 4 hour prn cough HYDROCODONE-ACETAMINOPHEN 24372840702 No Longer Active Carlton Hu MD Active PREDNISONE 20 MG ORAL TABLET 1 po bid 3 days, then 1 po q day 3 days PREDNISONE 67175270558 No Longer Active Carlton Hu MD Active CEFDINIR 300 MG ORAL CAPSULE by mouth twice a day 2011 CEFDINIR 42977035142 No Longer Active Carlton Hu MD Acti ve CEFDINIR 300 MG ORAL CAPSULE by mouth twice a day 2010 CEFDINIR 28990029071 No Longer Active Carlton Hu MD Acti ve CEFDINIR 300 MG ORAL CAPSULE by mouth twice a day 2010 CEFDINIR 82558372451 No Longer Active Carlton Hu MD Acti ve TESSALON PERLES 100 MG ORAL CAPSULE 1 tablet by mouth 3 times daily as needed for cough BENZONATATE 46841491246 No Longer Active Carlton Hu MD Active CEFDINIR 300 MG ORAL CAPSULE by mouth twice a day 2010 CEFDINIR 58310135079 No Longer Active Carlton Hu MD Acti ve ZITHROMAX Z-REYNA 250 MG ORAL TABLET 2 today, then 1 daily for 4 d ays AZITHROMYCIN 55500661797 No Longer Active Hugo Restrepo MD Active TESSALON PERLES 100 MG ORAL CAPSULE 1 tablet by mouth 3 times daily as needed for cough TESSALON PERLES 100 MG ORAL CAPSULE 14185 7 BENZONATATE Inactive PREDNISONE 20 MG ORAL TABLET 1 po bid 3 days, then 1 po q day 3 days PREDNISONE 20 MG ORAL TABLET 434927 PREDNISONE Greer ctive LORTAB 7.5-500 MG/15ML ORAL [...] cough CHERATUSSIN AC 100-10 MG/5ML ORAL SYRUP 233047 GUAIFENESIN-CODEINE Inactive ACETAMINOPHEN-CODEINE #3 300-30 MG ORAL TABLET 1 tablet po q 4-6 hrs prn pain ACETAMINOPHEN-CODEINE #3 300-30 MG ORAL TABLET ACETAMINOPHEN-CODEINE Inactive HYDROCODONE-ACETAMINOPHEN 5-325 MG ORAL TABLET 1 po q 6hr PRN co ugh HYDROCODONE-ACETAMINOPHEN 5-325 MG ORAL TABLET 470239 HYDROCODONE-ACETAMINOPHEN Inactive AVELOX 400 MG ORAL TABLET 1 tab by mouth daily AVELOX 400 MG ORAL TABLET 198860 MOXIFLOXACIN HCL Inactive CHERATUSSIN AC 100-10 MG/5ML ORAL SYRUP 1 tsp by mouth every 4 hours as needed for cough CHERATUSSIN AC 100-10 MG/5ML ORAL SYRUP 9 55664 GUAIFENESIN-CODEINE Inactive TERBINAFINE HCL 250 MG ORAL TABLET 1 qDay 07/08 TERBINAFINE HCL 250 MG ORAL TABLET 559044 TERBINAFINE HCL Inactive CHERATUSSIN AC 100-10 MG/5ML ORAL SYRUP 1 tsp by mouth every 4 hours as needed for cough CHERATUSSIN AC 100-10 MG/5ML ORAL SYRUP 9 63333 GUAIFENESIN-CODEINE Inactive ACETAMINOPHEN-CODEINE #3 300-30 MG ORAL TABLET 1 PO Q 4-6 HRS ID N PAIN ACETAMINOPHEN-CODEINE #3 300-30 MG ORAL TABLET ACETAMINOPHEN-CODEINE Inactive CHERATUSSIN AC 100-10 MG/5ML ORAL SYRUP 1 tsp by mouth every 4 hours as needed for cough CHERATUSSIN AC 100-10 MG/5ML ORAL SYRUP 9 58261 GUAIFENESIN-CODEINE Inactive AUGMENTIN 875-125 MG ORAL TABLET 1 tab by mouth twice daily with food AUGMENTIN 875-125 MG ORAL TABLET AMOXICIL MADELINE-POT CLAVULANATE Inactive CHERATUSSIN AC 100-10 MG/5ML ORAL SYRUP take one tsp po Q 6h ours prn cough CHERATUSSIN AC 100-10 MG/5ML ORAL SYRUP 884709 GUAIFENESIN-CODEINE Inactive PROPRANOLOL HCL 60 MG ORAL TABLET 1 PO Q D PROPRANOLOL HCL 60 MG ORAL TABLET 820060 PROPRANOLOL HCL Inactive TOPAMAX 50 MG ORAL TABLET take 1 tab po BID for migraines. 07/02 TOPAMAX 50 MG ORAL TABLET 878621 TOPIRAMATE Inacti ve TOPAMAX 25 MG ORAL TABLET 1 qHS x 1 week, then 1 BID x 1 week, then 1 qAM and 2 qHS x 1 week, then 2 BID (migraine prevention) TOPAMAX 25 MG ORAL TABLET 746857 TOPIRAMATE Inactive LYRICA 75 MG ORAL CAPSULE TAKE 1 CAPSULE BY MOUTH TWICE DAILY LYRICA 75 MG ORAL CAPSULE PREGABALIN Inactive SYMBICORT 160-4.5 MCG/ACT INHALATION AEROSOL 2 puffs bid wit h rinse after SYMBICORT 160-4.5 MCG/ACT INHALATION AEROSOL BUDESONIDE- FORMOTEROL FUMARATE Inactive PROMETHAZINE-CODEINE 6.25-10 MG/5ML ORAL SYRUP 1 tsp b y mouth every 8 hours prn cough PROMETHAZINE-CODEINE 6.25-10 MG/ 5ML ORAL SYRUP 122179 PROMETHAZINE-CODEINE Inactive CYMBALTA 30 MG ORAL CAPSULE DELAYED RELEASE PARTICLES 1 cap by mouth daily CYMBALTA 30 MG ORAL CAPSULE DELAYED RELE ASE PARTICLES 614987 DULOXETINE HCL Inactive PREMARIN 0.625 MG ORAL TABLET TAKE 1 TAB BY MOUTH DAILY PREMARIN 0.625 MG ORAL TABLET ESTROGENS CONJUGATED Inactive CHERATUSSIN AC 100-10 MG/5ML ORAL SYRUP 1 tsp by mouth every 4 hours as needed for cough CHERATUSSIN AC 100-10 MG/5ML ORAL SYRUP 9 47875 GUAIFENESIN-CODEINE Inactive PROMETHAZINE-CODEINE 6.25-10 MG/5ML ORAL SYRUP 1 tsp b y mouth every 6 hours if needed for cough PROMETHAZINE-CODEINE 6.25-10 MG/5ML ORAL SYRUP 790290 PROMETHAZINE-CODEINE Inactive CHERATUSSIN AC 100-10 MG/5ML ORAL SYRUP 1 tsp by mouth every 4 hours as needed for cough CHERATUSSIN AC 100-10 MG/5ML ORAL SYRUP 9 25515 GUAIFENESIN-CODEINE Inactive FLUTICASONE PROPIONATE 50 MCG/ACT NASAL SUSPENSION 1 t o 2 sprays each nostril daily FLUTICASONE PROPIONATE 50 MCG/AC T NASAL SUSPENSION 7261906 FLUTICASONE PROPIONATE Inactive PREDNISONE 20 MG ORAL TABLET 3 tab PO qd x 2d, 2 tab P O qd x 2d, 1 tab PO qd x 2d, 1/2 tab PO qd x 2d PREDNISONE 20 MG ORAL TAB LET 025248 PREDNISONE Inactive LEVOFLOXACIN 500 MG ORAL TABLET 1 tab PO daily x 10 days LEVOFLOXACIN 500 MG ORAL TABLET 629445 LEVOFLOXACIN Inactive CYCLOBENZAPRINE HCL 10 MG ORAL TABLET 1 tablet by mouth BID prn had pain CYCLOBENZAPRINE HCL 10 MG ORAL TABLET 099387 CYCLOBENZAPRINE HCL Inactive ZOCOR 40 MG ORAL TABLET 1 tab by mouth daily 4 ZOCOR 40 MG ORAL TABLET 458479 SIMVASTATIN Inactive TUSSIONEX PENNKINETIC ER 10-8 MG/5ML [...] FLUTICASONE PROPIO EFE 50 MCG/ACT NASAL SUSPENSION 5191173 FLUTICASONE PROPIONATE Inactive TUSSIONEX PENNKINETIC ER 10-8 [...] three days PREDNISONE 20 MG ORAL TABLET 745002 PREDNIS ONE Inactive PROAIR HFA 108 (90 BASE) MCG/ACT INHALATION AEROSOL SO LUTION 2 puffs four times a day as needed PROAIR HFA 108 (90 B ASE) MCG/ACT INHALATION AEROSOL SOLUTION ALBUTEROL SULFATE Inactive PREDNISONE 20 MG ORAL TABLET two tabs by mouth today, then one tab by mouth days two and three and four PREDNISONE 20 MG ORAL TAB LET 043189 PREDNISONE Inactive TUSSIONEX PENNKINETIC ER 10-8 MG/5ML [...] bid 04/20 TOPAMAX 100 MG ORAL TABLET 110061 TOPIRAMATE Inactive CYMBALTA 30 MG ORAL CAPSULE DELAYED RELEASE PARTICLES 1 cap by mouth daily for depression CYMBALTA 30 MG ORAL CAPSULE DELAYED RELEASE PARTICLES 285387 DULOXETINE HCL Inactive ZITHROMAX Z-REYNA 250 MG ORAL TABLET 2 today, then 1 daily for 4 d ays ZITHROMAX Z-REYNA 250 MG ORAL TABLET 300793 AZITHROMYCIN Inactive CEFDINIR 300 MG ORAL CAPSULE [...] 20 03/07/07 ZITHROMAX 250 MG ORAL TABLET 450932 AZITHROMYCIN Greer ctive CEFDINIR 300 MG ORAL CAPSULE by mouth twice a day 2011 CEFDINIR 300 MG ORAL CAPSULE 575991 CEFDINIR Inactive PREDNISONE 20 MG ORAL TABLET 2 tabs daily for 3 days, 1 tab daily for 3 days, 1/2 tab daily for 2 days PREDNISONE 20 MG ORAL T ABLET 090916 PREDNISONE Inactive AVELOX 400 MG ORAL TABLET 1 tab by mouth daily AVELOX 400 MG ORAL TABLET 556589 MOXIFLOXACIN HCL Inactive AVELOX 400 MG ORAL TABLET 1 tab by mouth daily AVELOX 400 MG ORAL TABLET 239249 MOXIFLOXACIN HCL Inactive PREDNISONE 20 MG ORAL TABLET Take 3 tabs daily for 3 d ays, 2 tabs daily for 3 days, 1 tab daily for 3 days, 1/2 tab daily for 3 days 11/07 PREDNISONE 20 MG ORAL TABLET 312651 PREDNISONE Inactive LEVAQUIN 500 MG ORAL TABLET take one po QD LEVAQUIN 500 MG ORAL TABLET 690733 LEVOFLOXACIN Inactive AZITHROMYCIN 250 MG ORAL TABLET 2 po qd x 1 day, then 1 po q d x 4 days AZITHROMYCIN 250 MG ORAL TABLET 057720 AZITHROMY GIOVANNI Inactive MEDROL 4 MG ORAL TABLET THERAPY PACK 6 tabs on day 1, 5 tabs on day 2, 4 tabs on day 3, 3 tabs on day 4, 2 tabs on day 5, 1 tab on day 6 2013 MEDROL 4 MG ORAL TABLET THERAPY PACK 764673 METHYLPREDNISOLONE [place] ctive CHERATUSSIN AC 100-10 MG/5ML ORAL SYRUP 5ml po q6hr PRN Cough 20 13/04/14 CHERATUSSIN AC 100-10 MG/5ML ORAL SYRUP 461609 GUAIFENE SIN-CODEINE Inactive TRIAMCINOLONE ACETONIDE 0.1 % EXTERNAL CREAM apply three roger es daily prn rash TRIAMCINOLONE ACETONIDE 0.1 % EXTERNAL CREAM 101 4314 TRIAMCINOLONE ACETONIDE Inactive AZITHROMYCIN 250 MG ORAL TABLET 2 po qd x 1 day, then 1 po q d x 4 days AZITHROMYCIN 250 MG ORAL TABLET 622830 AZITHROMY GIOVANNI Inactive MEDROL 4 MG ORAL TABLET THERAPY PACK 6 pills x 1 day, then 5 pills x 1 day then 4 pills x 1 day, then 3 pills x 1 day, then 2 pills x 1 day, then 1 pill x 1 day, then stop MEDROL 4 MG ORAL TABLET THERAPY PACK 445161 METHYLPREDNISOLONE Inactive AMOXICILLIN 500 MG ORAL CAPSULE 1 tab by mouth 3 times daily x 10 days AMOXICILLIN 500 MG ORAL CAPSULE 791352 AMOXICILL IN Inactive AMOXICILLIN 500 MG ORAL CAPSULE 1 tab by mouth 3 times daily x 10 days AMOXICILLIN 500 MG ORAL CAPSULE 685611 AMOXICILL IN Inactive ZITHROMAX 250 MG ORAL TABLET 2 po today, then 1 po q days 2-5 20 12/08/14 ZITHROMAX 250 MG ORAL TABLET 643118 AZITHROMYCIN Greer ctive AUGMENTIN 875-125 MG ORAL TABLET 1 po BID x 10 days 20 13/01/20 AUGMENTIN 875-125 MG ORAL TABLET AMOXICILLIN-POT CLAVULANATE Inactive ZITHROMAX Z-REYNA 250 MG ORAL TABLET 2 today, then 1 daily for 4 d ays ZITHROMAX Z-REYNA 250 MG ORAL TABLET 144231 AZITHROMYCIN Inactive ZITHROMAX 250 MG ORAL TABLET 2 po today, then 1 po q days 2-5 20 14/03/21 ZITHROMAX 250 MG ORAL TABLET 839230 AZITHROMYCIN [place] [facility] ZITHROMAX Z-REYNA 250 MG ORAL TABLET 2 today, then 1 daily for 4 d ays ZITHROMAX Z-REYNA 250 MG ORAL TABLET 053046 AZITHROMYCIN Inactive CEFDINIR 300 MG ORAL CAPSULE 1 po BID x 10 days 06/21 CEFDINIR 300 MG ORAL CAPSULE 20020704 CEFDINIR Inactive ZITHROMAX 250 MG ORAL TABLET 2 po today, then 1 po q days 2-5 20 13/08/10 ZITHROMAX 250 MG ORAL TABLET 290923 AZITHROMYCIN [facility] LEVAQUIN 500 MG ORAL TABLET 1 tablet by mouth daily 13/09/24 LEVAQUIN 500 MG ORAL TABLET 19971102 LEVOFLOXACIN Inactive SINGULAIR 10 MG ORAL TABLET 1 po qday for allergies 14/01/12 SINGULAIR 10 MG ORAL TABLET 20010504 MONTELUKAST SODIUM Inactive AMOXICILLIN 500 MG ORAL CAPSULE 2 po BID x 10 days 201 09/29/08 AMOXICILLIN 500 MG ORAL CAPSULE 942619 AMOXICILLIN Inactive PREDNISONE 20 MG ORAL TABLET 2 tabs daily for 3 days, 1 tab daily for 3 days, 1/2 tab daily for 2 days PREDNISONE 20 MG ORAL T ABLET 706434 PREDNISONE Inactive ZITHROMAX Z-REYNA 250 MG ORAL TABLET 2 today, then 1 daily for 4 d ays ZITHROMAX Z-REYNA 250 MG ORAL TABLET 188894 AZITHROMYCIN Inactive PREDNISONE 20 MG ORAL TABLET 2 tabs daily for 3 days, 1 tab daily for 3 days, 1/2 tab daily for 2 days PREDNISONE 20 MG ORAL T ABLET 869163 PREDNISONE Inactive ZITHROMAX 250 MG ORAL TABLET 2 po today, then 1 po q days 2-5 20 14/09/04 ZITHROMAX 250 MG ORAL TABLET 478782 AZITHROMYCIN [place] [facility] AMOXICILLIN 500 MG ORAL CAPSULE 1 cap by mouth three times a day AMOXICILLIN 500 MG ORAL CAPSULE 193628 AMOXICILLIN Inactive TERBINAFINE HCL 250 MG ORAL TABLET 1 qDay for nail fungus 7 TERBINAFINE HCL 250 MG ORAL TABLET 319045 TERBINAFINE HCL Inact nael AUGMENTIN 875-125 MG ORAL TABLET 1 po BID x 10 days 16/03/22 AUGMENTIN 875-125 MG ORAL TABLET AMOXICILLIN-POT CLAVULANATE Inactive PREDNISONE 20 MG ORAL TABLET 2 po qd x 5 days PREDNISONE 20 MG ORAL TABLET 408160 PREDNISONE Inactive AZITHROMYCIN 250 MG ORAL TABLET 2 po qd x 1 day, then 1 po q d x 4 days AZITHROMYCIN 250 MG ORAL TABLET 048491 AZITHROMY GIOVANNI Inactive PREDNISONE 50 MG ORAL TABLET Take 50 mg dialy for 6 day s 7 PREDNISONE 50 MG ORAL TABLET 923561 PREDNISONE Inactive AUGMENTIN 875-125 MG ORAL TABLET 1 po BID x 10 days 18/04/16 AUGMENTIN 875-125 MG ORAL TABLET AMOXICILLIN-POT CLAVULANATE Inactive DOXYCYCLINE HYCLATE 100 MG ORAL CAPSULE 1 cap by mouth twice latasha ly DOXYCYCLINE HYCLATE 100 MG ORAL CAPSULE 7188383 DOXYCYCL INE HYCLATE Inactive PREDNISONE 20 MG ORAL TABLET Take 2 tabs day 1 and 2 and 1 t ab days 3 and 4 PREDNISONE 20 MG ORAL TABLET 874221 PREDNISONE Inactive Vital Signs Date Name Value [...] - Chem istry sodium, serum 139 mmol/L 126-507 7329/10/12 potassium, serum 3.8 mmol/L 3.5-5.2 chloride, serum [...] negative Encounters Code Encounter Date Provider Facility CPT-73252 Level 3 Est. Patient 16:08:07 CDT David lion [facility] CPT-99667 Level 3 Est. Patient 16:53:54 CDT May haas MD [facility] CPT-88533 [id number] Vst-Est Level IV 08:41:[address] Carlton Hu MD [facility] CPT-78656 Level 3 Est. Patient 09:46:49 DATABASE DESIGNER David lion [facility] CPT-72929 [id number] Vst-Est Level III 11:12:16 CDT Yanet Bess DO [facility] CPT-81589 Level 3 Est. Patient 11:34:49 DATABASE DESIGNER Perez Mora MD [facility] CPT-56612 Level 4 Est. Patient 09:51:32 DATABASE DESIGNER Carlton rich MD [facility] CPT-58150 Level 3 Est. Patient 10:26:00 DATABASE DESIGNER Elise stephenson [facility] CPT-91976 Level 3 Est. Patient 13:35:41 DATABASE DESIGNER Carlton rich MD [facility] CPT-03936 Level 3 Est. Patient 10:03:52 DATABASE DESIGNER Carlton rich MD [facility] CPT-72043 Level 3 Est. Patient 12:17:50 CDT Hugo Restrepo MD [facility] CPT-09521 Level 3 Est. Patient 13:42:38 CDT Elise stephenson [facility] CPT-65925 Level 3 Est. Patient 13:23:51 CDT Diya cobian [facility] CPT-74076 Level 3 Est. Patient 14:22:19 DATABASE DESIGNER Diya cobian [facility] CPT-88258 Level 3 Est. Patient 10:11:46 CDT Carlton rich MD [facility] CPT-03476 Level 3 Est. Patient 17:29:43 CDT Elise Are ll DIRECTOR OF ACADEMIC [facility] CPT-91428 Level 3 Est. Patient 11:58:06 CDT Elise Are ll [facility] CPT-96092 Level 4 Est. Patient 14:36:51 CDT Carlton rich MD [facility] CPT-51512 Level 3 Est. Patient 18:16:00 DATABASE DESIGNER Blaine Freeman [facility] CPT-29795 Level 3 Est. Patient 09:45:49 DATABASE DESIGNER Carlton rich MD [facility] CPT-83956 Level 3 Est. Patient 13:19:20 CDT Carlton rich MD [facility] CPT-36914 Level 3 Est. Patient 13:06:43 CDT Ridge tam DO [facility] CPT-34155 Level 3 Est. Patient 10:03:07 CDT Perez Mora MD [facility] CPT-26002 Level 3 Est. Patient 19:50:35 DATABASE DESIGNER Carlton rich MD [facility] CPT-80121 Level 4 Est. Patient 18:05:01 DATABASE DESIGNER Carlton rich MD [facility] CPT-31543 Level 3 Est. Patient 10:45:55 DATABASE DESIGNER Hugo Restrepo MD [facility] CPT-69914 Level 3 Est. Patient 14:12:49 CDT Griffin lincoln [facility] CPT-63117 Level 3 Est. Patient 17:37:24 CDT Carlton rich MD [facility] CPT-65219 Level 3 Est. Patient 16:51:54 CDT Carlton rich MD [facility] CPT-29175 Level 3 Est. Patient 12:18:11 CDT Hugo Restrepo MD [facility] CPT-36944 Level 3 Est. Patient 11:30:25 CDT Marcy crisostomo MD PhD [facility] CPT-53752 Level 3 Est. Patient 12:00:47 DATABASE DESIGNER Carlton rich MD [facility] CPT-38175 Level 3 Est. Patient 16:31:06 DATABASE DESIGNER Carlton rich MD [facility] CPT-83804 Level 3 Est. Patient 16:23:24 DATABASE DESIGNER Ridge tam [facility] CPT-27057 Level 3 Est. Patient 12:34:12 CDT Carlton rich MD [facility] CPT-48636 Level 2 Est. Patient 15:43:33 CDT Robi armstrong MD [facility] CPT-79876 Level 4 Est. Patient 14:04:44 CDT Carlton rich MD [facility] CPT-47232 Level 3 Est. Patient 05:47:[address] [facility] CPT-37348 Level 3 Est. Patient 13:12:53 DATABASE DESIGNER Carlton rich MD [facility] CPT-20887 Level 3 Est. Patient 14:26:53 CDT Hugo [...] CPT-J1100 Decadron 6mg (Dexamethasone) 14:32:13 CDT 2 CPT-30721 Hip bilat min 2V w AP pelvis 13:16:20 CDT 2 CPT-38566 Pelvis only 13:07:33 CDT CPT-45703 Spec Collection and Handling Fee 11:25:12 C DT CPT-46043 Fluzone Quadrivalent Intramuscular Suspe nsion 0.5 ML 14:31:55 CDT CPT-34891 Abx/Therapy Injection 13:28:47 DATABASE DESIGNER CPT-J2930 Solu Medrol 125 mg (Methyl Prednisolone Sodium Succinate) 12:00:47 DATABASE DESIGNER CPT-33131 Venipuncture Draw Fee 11:33:31 CDT CPT-76548 EKG Trac and Interp 11:21:09 CDT CPT-96519 Chest 2V Frontal and Lat 11:21:09 CDT 12/15 CPT-92138 Venipuncture Draw Fee 08:02:34 CDT CPT-78515 Chest 2V Frontal and Lat 05:47:59 CDT 06/05
--- OUTSIDE RECORDS SUMMARY | 2019-10-08 09:01 | XMS REPORT | Clinical Summary ---
Author Author Caitlin, Juliana Martinez Organization [employer] Address Unknown Phone Unavailable Allergies, [...] URI 465.9 Inactive Ridge Bess DO Ac [place] upper respiratory infections of unspecified site Body [...] for up 2 weeks TRIAMCINOLONE ACETON KAYLA [id number] Active David Marianne FAMILY PRACTICE NURSE PRACTITIONER Active AMOXICILLIN 500 MG ORAL CAPSULE 1 cap by mouth twice daily 10/21 AMOXICILLIN 90748335652 Active David Marianne FAMILY PRACTICE NURSE PRACTITIONER Activ e ELMIRON 100 MG ORAL CAPSULE 2 capsules in the morning and 1 capsule at night PENTOSAN POLYSULFATE SODIUM 80727525549 Active Cinthia H art [employer] WORK[employer] SUPER[employer]OR Active CYMBALTA 30 MG ORAL CAPSULE DELAYED RELEASE PARTICLES 1 cap by mouth daily for depression DULOXETINE HCL 57628289796 No Longer Active Carlton Hu MD Active CYMBALTA 60 MG ORAL CAPSULE DELAYED RELEASE PARTICLES 1 cap by mouth daily for mood and pain DULOXETINE HCL 94509866227 Active Carlton Hu MD Active TUSSIONEX PENNKINETIC ER 10-8 MG/5ML ORAL SUSPENSION E XTENDED RELEASE 5ml po q12hr PRN Cough HYDROCOD POLST-CHLORPHEN POLST 93910207345 Active David Marianne FAMILY PRACTICE NURSE PRACTITIONER Active PREDNISONE 20 MG ORAL TABLET Take 2 tabs day 1 and 2 and 1 t ab days 3 and 4 PREDNISONE 70980613472 No Longer Active David Marianne FAMILY PRACTICE NURSE PRACTITIONER Active DOXYCYCLINE HYCLATE 100 MG ORAL CAPSULE 1 cap by mouth twice latasha ly DOXYCYCLINE HYCLATE 85630481981 No Longer Active David Marianne FAMILY PRACTICE NURSE PRACTITIONER Active TOPAMAX 100 MG ORAL TABLET Take 1 tablet po bid TOPIRAMATE 35652559947 No Longer Active David Marianne FAMILY PRACTICE NURSE PRACTITIONER Active TUSSIONEX PENNKINETIC ER 10-8 MG/5ML ORAL SUSPENSION E XTENDED RELEASE 5ml po q12hr PRN Cough HYDROCOD POLST-CHLORPHEN POLST 5 9007660238 No Longer Active David Marianne FAMILY PRACTICE NURSE PRACTITIONER Active AUGMENTIN 875-125 MG ORAL TABLET 1 po BID x 10 days 18/04/16 AMOXICILLIN-POT CLAVULANATE 20043502772 No Longer Active David Lopes APRN Active PREDNISONE 50 MG ORAL TABLET Take 50 mg dialy for 6 day s 7 PREDNISONE 87192634092 No Longer Active David Marianne FAMILY PRACTICE NURSE PRACTITIONER Active TUSSIONEX PENNKINETIC ER 10-8 MG/5ML ORAL SUSPENSION E XTENDED RELEASE 5ml po q12hr PRN Cough HYDROCOD POLST-CHLORPHEN POLST 5 8286140898 No Longer Active Cherelle Torres RN Active PREDNISONE 20 MG ORAL TABLET two tabs by mouth today, then one tab by mouth days two and three and four PREDNISONE 49492315109 No Lo nger Active Cherelle Torres RN Active AZITHROMYCIN 250 MG ORAL TABLET 2 po qd x 1 day, then 1 po q d x 4 days AZITHROMYCIN 65440869674 No Longer Active Ridge Bess DO Active PREDNISONE 20 MG ORAL TABLET 2 po qd x 5 days P REDNISONE 67054913398 No Longer Active Perez Mora MD Active PROAIR HFA 108 (90 BASE) MCG/ACT INHALATION AEROSOL SO LUTION 2 puffs four times a day as needed ALBUTEROL SULFATE 88534249018 No Long er Active Becky FUENTES Active ASPIRIN 81 MG ORAL TABLET 1 po qd ASPIRIN 10792186306 Active Carlton Hu MD Active PREDNISONE 20 MG ORAL TABLET 1 tab twice daily for 3 d ay, then one daily for three days PREDNISONE 76275203547 No Longer Active Carlton Hu MD Active AUGMENTIN 875-125 MG ORAL TABLET 1 po BID x 10 days 20 16/03/22 AMOXICILLIN-POT CLAVULANATE 72074804637 No Longer Active Elise Garcia APRN Active TERBINAFINE HCL 250 MG ORAL TABLET 1 qDay for nail fungus 7 TERBINAFINE HCL 28692520398 No Longer Active Carlton Hu MD A ctive AMOXICILLIN 500 MG ORAL CAPSULE 1 cap by mouth three times a day AMOXICILLIN 71733112477 No Longer Active Carlton Hu MD Active ELMIRON 100 MG ORAL CAPSULE 2 tablets in the am and 1 tablet at hs PENTOSAN POLYSULFATE SODIUM 94179134421 No Longer Active Robert Hu MD Active MUCINEX D 60-600 MG ORAL TABLET EXTENDED RELEASE 12 HOUR 1 t ab po q am PSEUDOEPHEDRINE-GUAIFENESIN 84854582534 No Longer Act nael Carlton Hu MD Active MUCINEX DM MAXIMUM STRENGTH 60-1200 MG ORAL TABLET EXT ENDED RELEASE 12 HOUR 1 tab po q am DEXTROMETHORPHAN-GUAIFENESIN 81591659304 No Longer Active Carlton Hu MD Active TUSSIONEX PENNKINETIC ER 10-8 MG/5ML ORAL SUSPENSION E XTENDED RELEASE 5ml po q12hr PRN Cough HYDROCOD POLST-CHLORPHEN POLST 5 7963641044 No Longer Active Carlton Hu MD Active POTASSIUM CHLORIDE ER 20 MEQ ORAL TABLET EXTENDED RELE ASE Take 1 by mouth 4 times daily for 7 days POTASSIUM CHLORIDE 66847675007 No Longer Active Carlton Hu MD Active ZITHROMAX 250 MG ORAL TABLET 2 po today, then 1 po q days 2-5 14/09/04 AZITHROMYCIN 34315241490 No Longer Active Elise Garcia APRN Active TUSSIONEX PENNKINETIC ER 10-8 MG/5ML ORAL SUSPENSION E XTENDED RELEASE 5 ml twice a day as needed for cough HYDROCOD POLST-CHLORPH EN POLST 46519827549 No Longer Active Elise Garcia APRN Active MONTELUKAST SODIUM 10 MG ORAL TABLET 1 po daily for Allergy MONTELUKAST SODIUM 20128080065 Active Carlton Hu MD Ac tive TUSSIONEX PENNKINETIC ER 10-8 MG/5ML ORAL SUSPENSION E XTENDED RELEASE 5ml po q12hr PRN Cough HYDROCOD POLST-CHLORPHEN POLST 5 2392126006 No Longer Active Hugo Restrepo MD Active GABAPENTIN 100 MG ORAL CAPSULE 1 po BID for fibromyalgia GABAPENTIN 59939342910 Active ALFREDO Holly Active LYRICA 100 MG ORAL CAPSULE Take 1 tab po BID for fibromyalgia 20 11/08/21 PREGABALIN 85910879976 No Longer Active Elise Garcia APRN A ctive PREDNISONE 20 MG ORAL TABLET 2 tabs daily for 3 days, 1 tab daily for 3 days, 1/2 tab daily for 2 days PREDNISONE 07864450486 No Longer Active Jillina Frazell FAMILY PRACTICE NURSE PRACTITIONER Active TUSSIONEX PENNKINETIC ER 10-8 MG/5ML ORAL SUSPENSION E XTENDED RELEASE 5 mL PO q 12 hrs PRN cough HYDROCOD POLST-CHLORPHEN POLST 207859 98698 No Longer Active Jillina Frazell FAMILY PRACTICE NURSE PRACTITIONER Active FLUTICASONE PROPIONATE 50 MCG/ACT NASAL SUSPENSION 2 s prays each nostril daily until bottle is empty FLUTICASONE PROPIONATE 074608929 99 No Longer Active Jillina Frazell FAMILY PRACTICE NURSE PRACTITIONER Active ASMANEX 60 METERED DOSES 220 MCG/INH INHALATION AEROSO L POWDER BREATH ACTIVATED 1 puff bid with rinse after MOMETASONE FUROATE 3217060 4102 No Longer Active Jillina Frazell FAMILY PRACTICE NURSE PRACTITIONER Active ZITHROMAX Z-REYNA 250 MG ORAL TABLET 2 today, then 1 daily for 4 d ays AZITHROMYCIN 84720935680 No Longer Active Elise Garcia FAMILY PRACTICE NURSE PRACTITIONER Active TUSSIONEX PENNKINETIC ER 10-8 MG/5ML ORAL SUSPENSION E XTENDED RELEASE 5ml po q12hr PRN Cough HYDROCOD POLST-CHLORPHEN POLST 5 2396265068 No Longer Active Elise Garcia APRN Active PREDNISONE 20 MG ORAL TABLET 2 tabs daily for 3 days, 1 tab daily for 3 days, 1/2 tab daily for 2 days PREDNISONE 68142787012 No Longer Active Jillina Frazell FAMILY PRACTICE NURSE PRACTITIONER Active AMOXICILLIN 500 MG ORAL CAPSULE 2 po BID x 10 days 201 09/29/08 AMOXICILLIN 30173658515 No Longer Active Diya De Guzman FAMILY PRACTICE NURSE PRACTITIONER Act nael SINGULAIR 10 MG ORAL TABLET 1 po qday for allergies 14/01/12 MONTELUKAST SODIUM 86905206277 No Longer Active Carlton Hu MD Active LEVAQUIN 500 MG ORAL TABLET 1 tablet by mouth daily 13/09/24 LEVOFLOXACIN 46924898421 No Longer Active Carlton Hu MD Acti ve FLUTICASONE PROPIONATE 50 MCG/ACT NASAL SUSPENSION 2 s prays each nostril daily for 2 weeks, then 1 spray each nostril daily. FLUTICASONE PROPIONATE 11703461146 Active Carlton Hu MD Active ZITHROMAX 250 MG ORAL TABLET 2 po today, then 1 po q days 2-5 20 13/08/10 AZITHROMYCIN 07772516864 No Longer Active Elise Garcia APRN Active XANAX 0.5 MG ORAL TABLET one tablet by mouth daily prn anxiety 2015 ALPRAZOLAM 46787977306 Active ALFREDO Holly Active CEFDINIR 300 MG ORAL CAPSULE 1 po BID x 10 days CEFDINIR 82610580246 No Longer Active Carlton Hu MD Active ZOCOR 40 MG ORAL TABLET 1 tab by mouth daily SI MVASTATIN 64183599404 No Longer Active Carlton Hu MD Active CYCLOBENZAPRINE HCL 10 MG ORAL TABLET 1 tablet by mouth BID prn had pain CYCLOBENZAPRINE HCL 80864689311 No Longer Active Jayden Hu MD Active LEVOFLOXACIN 500 MG ORAL TABLET 1 tab PO daily x 10 days LEVOFLOXACIN 40727094582 No Longer Active Carlton Hu MD Acti ve PREDNISONE 20 MG ORAL TABLET 3 tab PO qd x 2d, 2 tab P O qd x 2d, 1 tab PO qd x 2d, 1/2 tab PO qd x 2d PREDNISONE 87438379106 No Lo nger Active Carlton Hu MD Active FLUTICASONE PROPIONATE 50 MCG/ACT NASAL SUSPENSION 1 t o 2 sprays each nostril daily FLUTICASONE PROPIONATE 99001522786 No Longer Ac tive Blaine HERNANDEZ Active CHERATUSSIN AC 100-10 MG/5ML ORAL SYRUP 1 tsp by mouth every 4 hours as needed for cough GUAIFENESIN-CODEINE 59394273093 No Longe r Active Blaine HERNANDEZ Active PROMETHAZINE-CODEINE 6.25-10 MG/5ML ORAL SYRUP 1 tsp b y mouth every 6 hours if needed for cough PROMETHAZINE-CODEINE 59240224685 No Longer Active Blaine HERNANDEZ Active CHERATUSSIN AC 100-10 MG/5ML ORAL SYRUP 1 tsp by mouth every 4 hours as needed for cough GUAIFENESIN-CODEINE 29019148982 No Longe r Active Blaine HERNANDEZ Active ZITHROMAX Z-REYNA 250 MG ORAL TABLET 2 today, then 1 daily for 4 d ays AZITHROMYCIN 67167273197 No Longer Active Columba Raida Act nael ZITHROMAX 250 MG ORAL TABLET 2 po today, then 1 po q days 2-5 20 14/03/21 AZITHROMYCIN 51334606347 No Longer Active Carlton Hu MD Active ZITHROMAX Z-REYNA 250 MG ORAL TABLET 2 today, then 1 daily for 4 d ays AZITHROMYCIN 63503598934 No Longer Active Columba Raida Act nael AUGMENTIN 875-125 MG ORAL TABLET 1 po BID x 10 days 13/01/20 AMOXICILLIN-POT CLAVULANATE 94797898685 No Longer Active Diya De Guzman APRN Active ZITHROMAX 250 MG ORAL TABLET 2 po today, then 1 po q days 2-5 20 12/08/14 AZITHROMYCIN 15580424967 No Longer Active Carlton Hu MD Active TRAMADOL HCL 50 MG ORAL TABLET 1 po tid with ES Tylenol TRAMADOL HCL 36032175167 Active Carlton Hu MD Active PREMARIN 0.625 MG ORAL TABLET TAKE 1 TAB BY MOUTH DAILY ESTROGENS CONJUGATED 43148491959 No Longer Active Ridge Bess DO A ctive CYMBALTA 30 MG ORAL CAPSULE DELAYED RELEASE PARTICLES 1 cap by mouth daily DULOXETINE HCL 15203766979 No Longer Active Ridge Ya ee DO Active AMOXICILLIN 500 MG ORAL CAPSULE 1 tab by mouth 3 times daily x 10 days AMOXICILLIN 62100900622 No Longer Active Carlton bustamante MD Active AMOXICILLIN 500 MG ORAL CAPSULE 1 tab by mouth 3 times daily x 10 days AMOXICILLIN 00954976968 No Longer Active Carlton bustamante MD Active PROMETHAZINE-CODEINE 6.25-10 MG/5ML ORAL SYRUP 1 tsp b y mouth every 8 hours prn cough PROMETHAZINE-CODEINE 59822184964 No Longer Acti ve Carlton Hu MD Active MEDROL 4 MG ORAL TABLET THERAPY PACK 6 pills x 1 day, then 5 pills x 1 day then 4 pills x 1 day, then 3 pills x 1 day, then 2 pills x 1 day, then 1 pill x 1 day, then stop METHYLPREDNISOLONE 27091539026 No Long er Active Perez Mora MD Active AZITHROMYCIN 250 MG ORAL TABLET 2 po qd x 1 day, then 1 po q d x 4 days AZITHROMYCIN 02024983804 No Longer Active Perez Ambriz MD Active SYMBICORT 160-4.5 MCG/ACT INHALATION AEROSOL 2 puffs bid wit h rinse after BUDESONIDE-FORMOTEROL FUMARATE 38877006224 N o Longer Active Perez Mora MD Active LYRICA 75 MG ORAL CAPSULE TAKE 1 CAPSULE BY MOUTH TWICE DAILY PREGABALIN 47551744457 No Longer Active Carlton Hu MD Acti ve TOPAMAX 25 MG ORAL TABLET 1 qHS x 1 week, then 1 BID x 1 week, then 1 qAM and 2 qHS x 1 week, then 2 BID (migraine prevention) T OPIRAMATE 84195313337 No Longer Active Jerica FUENTES Active TOPAMAX 50 MG ORAL TABLET take 1 tab po BID for migraines. 07/02 TOPIRAMATE 85159429443 No Longer Active Jerica FUENTES Active TRIAMCINOLONE ACETONIDE 0.1 % EXTERNAL CREAM apply three roger es daily prn rash TRIAMCINOLONE ACETONIDE 33612405849 No Longer Active Carlton Hu MD Active PAXIL 40 MG ORAL TABLET take 1 tab po qday for depression 0 PAROXETINE HCL 83837723039 Active Carlton Hu MD Active CHERATUSSIN AC 100-10 MG/5ML ORAL SYRUP 5ml po q6hr PRN Cough 20 13/04/14 GUAIFENESIN-CODEINE 22950123766 No Longer Active Carlton Hu MD Active MEDROL 4 MG ORAL TABLET THERAPY PACK 6 tabs on day 1, 5 tabs on day 2, 4 tabs on day 3, 3 tabs on day 4, 2 tabs on day 5, 1 tab on day 6 2013 METHYLPREDNISOLONE 83138151116 No Longer Active Perez Mora MD Active AZITHROMYCIN 250 MG ORAL TABLET 2 po qd x 1 day, then 1 po q d x 4 days AZITHROMYCIN 69509314609 No Longer Active Perez Ambriz MD Active PROPRANOLOL HCL 60 MG ORAL TABLET 1 PO Q D PROPRANOLOL HCL 63268553151 No Longer Active Perez Mora MD Activ e CHERATUSSIN AC 100-10 MG/5ML ORAL SYRUP take one tsp po Q 6h ours prn cough GUAIFENESIN-CODEINE 76007268760 No Longer Active Zia Mora MD Active AUGMENTIN 875-125 MG ORAL TABLET 1 tab by mouth twice daily with food AMOXICILLIN-POT CLAVULANATE 20334027398 No Longer Act nael Perez Mora MD Active CHERATUSSIN AC 100-10 MG/5ML ORAL SYRUP 1 tsp by mouth every 4 hours as needed for cough GUAIFENESIN-CODEINE 17418439812 No Longe r Active Hugo Restrepo MD Active ACETAMINOPHEN-CODEINE #3 300-30 MG ORAL TABLET 1 PO Q 4-6 HRS AL N PAIN ACETAMINOPHEN-CODEINE 50733692212 No Longer Active Hugo Restrepo MD Active LEVAQUIN 500 MG ORAL TABLET take one po QD LEVO FLOXACIN 35646724665 No Longer Active Griffin HERNANDEZ Active PREDNISONE 20 MG ORAL TABLET Take 3 tabs daily for 3 d ays, 2 tabs daily for 3 days, 1 tab daily for 3 days, 1/2 tab daily for 3 days 11/07 PREDNISONE 05289130058 No Longer Active Carlton Hu MD Acti ve AVELOX 400 MG ORAL TABLET 1 tab by mouth daily MOXIFLOXACIN HCL 46196991128 No Longer Active Carlton Hu MD Active CHERATUSSIN AC 100-10 MG/5ML ORAL SYRUP 1 tsp by mouth every 4 hours as needed for cough GUAIFENESIN-CODEINE 79612852909 No Longe r Active Hugo Restrepo MD Active AVELOX 400 MG ORAL TABLET 1 tab by mouth daily MOXIFLOXACIN HCL 31459655860 No Longer Active Marcy De La Rosa MD PhD Active TERBINAFINE HCL 250 MG ORAL TABLET 1 qDay T ERBINAFINE HCL 37502732681 No Longer Active Marcy De La Rosa MD PhD Active CHERATUSSIN AC 100-10 MG/5ML ORAL SYRUP 1 tsp by mouth every 4 hours as needed for cough GUAIFENESIN-CODEINE 34689951910 No Longe r Active Marcy De La Rosa MD PhD Active AVELOX 400 MG ORAL TABLET 1 tab by mouth daily MOXIFLOXACIN HCL 06058507862 No Longer Active Marcy De La Rosa MD PhD Active HYDROCODONE-ACETAMINOPHEN 5-325 MG ORAL TABLET 1 po q 6hr PRN co ugh HYDROCODONE-ACETAMINOPHEN 43595967651 No Longer Active Marcy De La Rosa MD PhD Active PREDNISONE 20 MG ORAL TABLET 2 tabs daily for 3 days, 1 tab daily for 3 days, 1/2 tab daily for 2 days PREDNISONE 79504359591 No Longer Active Carlton Hu MD Active CEFDINIR 300 MG ORAL CAPSULE by mouth twice a day 2011 CEFDINIR 06480857705 No Longer Active Carlton Hu MD Acti ve HYDROCHLOROTHIAZIDE 25 MG ORAL TABLET 1 TAB PO DAILY HYDROCHLOROTHIAZIDE 38434215899 Active Carlton Hu MD A ctive ACETAMINOPHEN-CODEINE #3 300-30 MG ORAL TABLET 1 tablet po q 4-6 hrs prn pain ACETAMINOPHEN-CODEINE 47356967272 No Longer Active Ridge Bess DO Active ZITHROMAX 250 MG ORAL TABLET 2 po today, then 1 po q days 2-5 20 03/07/07 AZITHROMYCIN 93334433077 No Longer Active Carlton Hu MD Active CHERATUSSIN AC 100-10 MG/5ML ORAL SYRUP take 1 tsp po q4-6 h ours prn cough GUAIFENESIN-CODEINE 50408386775 No Longer Active Jayden Hu MD Active ACETAMINOPHEN-CODEINE #3 300-30 MG ORAL TABLET 1 PO Q 4-6 HR PRN PAIN ACETAMINOPHEN-CODEINE 52192704029 No Longer Active Da raimundo Hu MD Active LORTAB 7.5-500 MG/15ML ORAL ELIXIR 7.5 ml po q 4 hour prn cough HYDROCODONE-ACETAMINOPHEN 53234580504 No Longer Active Carlton Hu MD Active PREDNISONE 20 MG ORAL TABLET 1 po bid 3 days, then 1 po q day 3 days PREDNISONE 02553912612 No Longer Active Carlton Hu MD Active CEFDINIR 300 MG ORAL CAPSULE by mouth twice a day 2011 CEFDINIR 73012071347 No Longer Active Carlton Hu MD Acti ve CEFDINIR 300 MG ORAL CAPSULE by mouth twice a day 2010 CEFDINIR 14581481397 No Longer Active Carlton Hu MD Acti ve CEFDINIR 300 MG ORAL CAPSULE by mouth twice a day 2010 CEFDINIR 33202450934 No Longer Active Carlton Hu MD Acti ve TESSALON PERLES 100 MG ORAL CAPSULE 1 tablet by mouth 3 times daily as needed for cough BENZONATATE 11044138456 No Longer Active Carlton Hu MD Active CEFDINIR 300 MG ORAL CAPSULE by mouth twice a day 2010 CEFDINIR 23251105052 No Longer Active Carlton Hu MD Acti ve ZITHROMAX Z-REYNA 250 MG ORAL TABLET 2 today, then 1 daily for 4 d ays AZITHROMYCIN 38953153954 No Longer Active Hugo Restrepo MD Active TESSALON PERLES 100 MG ORAL CAPSULE 1 tablet by mouth 3 times daily as needed for cough TESSALON PERLES 100 MG ORAL CAPSULE 49968 7 BENZONATATE Inactive PREDNISONE 20 MG ORAL TABLET 1 po bid 3 days, then 1 po q day 3 days PREDNISONE 20 MG ORAL TABLET 182153 PREDNISONE Greer ctive LORTAB 7.5-500 MG/15ML ORAL [...] cough CHERATUSSIN AC 100-10 MG/5ML ORAL SYRUP 929282 GUAIFENESIN-CODEINE Inactive ACETAMINOPHEN-CODEINE #3 300-30 MG ORAL TABLET 1 tablet po q 4-6 hrs prn pain ACETAMINOPHEN-CODEINE #3 300-30 MG ORAL TABLET ACETAMINOPHEN-CODEINE Inactive HYDROCODONE-ACETAMINOPHEN 5-325 MG ORAL TABLET 1 po q 6hr PRN co ugh HYDROCODONE-ACETAMINOPHEN 5-325 MG ORAL TABLET 789476 HYDROCODONE-ACETAMINOPHEN Inactive AVELOX 400 MG ORAL TABLET 1 tab by mouth daily AVELOX 400 MG ORAL TABLET 821254 MOXIFLOXACIN HCL Inactive CHERATUSSIN AC 100-10 MG/5ML ORAL SYRUP 1 tsp by mouth every 4 hours as needed for cough CHERATUSSIN AC 100-10 MG/5ML ORAL SYRUP 9 01261 GUAIFENESIN-CODEINE Inactive TERBINAFINE HCL 250 MG ORAL TABLET 1 qDay 07/08 TERBINAFINE HCL 250 MG ORAL TABLET 152078 TERBINAFINE HCL Inactive CHERATUSSIN AC 100-10 MG/5ML ORAL SYRUP 1 tsp by mouth every 4 hours as needed for cough CHERATUSSIN AC 100-10 MG/5ML ORAL SYRUP 9 86116 GUAIFENESIN-CODEINE Inactive ACETAMINOPHEN-CODEINE #3 300-30 MG ORAL TABLET 1 PO Q 4-6 HRS AL N PAIN ACETAMINOPHEN-CODEINE #3 300-30 MG ORAL TABLET ACETAMINOPHEN-CODEINE Inactive CHERATUSSIN AC 100-10 MG/5ML ORAL SYRUP 1 tsp by mouth every 4 hours as needed for cough CHERATUSSIN AC 100-10 MG/5ML ORAL SYRUP 9 82163 GUAIFENESIN-CODEINE Inactive AUGMENTIN 875-125 MG ORAL TABLET 1 tab by mouth twice daily with food AUGMENTIN 875-125 MG ORAL TABLET AMOXICIL MADELINE-POT CLAVULANATE Inactive CHERATUSSIN AC 100-10 MG/5ML ORAL SYRUP take one tsp po Q 6h ours prn cough CHERATUSSIN AC 100-10 MG/5ML ORAL SYRUP 908246 GUAIFENESIN-CODEINE Inactive PROPRANOLOL HCL 60 MG ORAL TABLET 1 PO Q D PROPRANOLOL HCL 60 MG ORAL TABLET 020002 PROPRANOLOL HCL Inactive TOPAMAX 50 MG ORAL TABLET take 1 tab po BID for migraines. 07/02 TOPAMAX 50 MG ORAL TABLET 677859 TOPIRAMATE Inacti ve TOPAMAX 25 MG ORAL TABLET 1 qHS x 1 week, then 1 BID x 1 week, then 1 qAM and 2 qHS x 1 week, then 2 BID (migraine prevention) TOPAMAX 25 MG ORAL TABLET 767729 TOPIRAMATE Inactive LYRICA 75 MG ORAL CAPSULE TAKE 1 CAPSULE BY MOUTH TWICE DAILY LYRICA 75 MG ORAL CAPSULE PREGABALIN Inactive SYMBICORT 160-4.5 MCG/ACT INHALATION AEROSOL 2 puffs bid wit h rinse after SYMBICORT 160-4.5 MCG/ACT INHALATION AEROSOL BUDESONIDE- FORMOTEROL FUMARATE Inactive PROMETHAZINE-CODEINE 6.25-10 MG/5ML ORAL SYRUP 1 tsp b y mouth every 8 hours prn cough PROMETHAZINE-CODEINE 6.25-10 MG/ 5ML ORAL SYRUP 461184 PROMETHAZINE-CODEINE Inactive CYMBALTA 30 MG ORAL CAPSULE DELAYED RELEASE PARTICLES 1 cap by mouth daily CYMBALTA 30 MG ORAL CAPSULE DELAYED RELE ASE PARTICLES 285404 DULOXETINE HCL Inactive PREMARIN 0.625 MG ORAL TABLET TAKE 1 TAB BY MOUTH DAILY PREMARIN 0.625 MG ORAL TABLET ESTROGENS CONJUGATED Inactive CHERATUSSIN AC 100-10 MG/5ML ORAL SYRUP 1 tsp by mouth every 4 hours as needed for cough CHERATUSSIN AC 100-10 MG/5ML ORAL SYRUP 9 74714 GUAIFENESIN-CODEINE Inactive PROMETHAZINE-CODEINE 6.25-10 MG/5ML ORAL SYRUP 1 tsp b y mouth every 6 hours if needed for cough PROMETHAZINE-CODEINE 6.25-10 MG/5ML ORAL SYRUP 041206 PROMETHAZINE-CODEINE Inactive CHERATUSSIN AC 100-10 MG/5ML ORAL SYRUP 1 tsp by mouth every 4 hours as needed for cough CHERATUSSIN AC 100-10 MG/5ML ORAL SYRUP 9 98992 GUAIFENESIN-CODEINE Inactive FLUTICASONE PROPIONATE 50 MCG/ACT NASAL SUSPENSION 1 t o 2 sprays each nostril daily FLUTICASONE PROPIONATE 50 MCG/AC T NASAL SUSPENSION 1357805 FLUTICASONE PROPIONATE Inactive PREDNISONE 20 MG ORAL TABLET 3 tab PO qd x 2d, 2 tab P O qd x 2d, 1 tab PO qd x 2d, 1/2 tab PO qd x 2d PREDNISONE 20 MG ORAL TAB LET 573543 PREDNISONE Inactive LEVOFLOXACIN 500 MG ORAL TABLET 1 tab PO daily x 10 days LEVOFLOXACIN 500 MG ORAL TABLET 371081 LEVOFLOXACIN Inactive CYCLOBENZAPRINE HCL 10 MG ORAL TABLET 1 tablet by mouth BID prn had pain CYCLOBENZAPRINE HCL 10 MG ORAL TABLET 897371 CYCLOBENZAPRINE HCL Inactive ZOCOR 40 MG ORAL TABLET 1 tab by mouth daily 4 ZOCOR 40 MG ORAL TABLET 312487 SIMVASTATIN Inactive TUSSIONEX PENNKINETIC ER 10-8 MG/5ML [...] FLUTICASONE PROPIO EFE 50 MCG/ACT NASAL SUSPENSION 3704272 FLUTICASONE PROPIONATE Inactive TUSSIONEX PENNKINETIC ER 10-8 [...] three days PREDNISONE 20 MG ORAL TABLET 199792 PREDNIS ONE Inactive PROAIR HFA 108 (90 BASE) MCG/ACT INHALATION AEROSOL SO LUTION 2 puffs four times a day as needed PROAIR HFA 108 (90 B ASE) MCG/ACT INHALATION AEROSOL SOLUTION ALBUTEROL SULFATE Inactive PREDNISONE 20 MG ORAL TABLET two tabs by mouth today, then one tab by mouth days two and three and four PREDNISONE 20 MG ORAL TAB LET 305445 PREDNISONE Inactive TUSSIONEX PENNKINETIC ER 10-8 MG/5ML [...] bid 04/20 TOPAMAX 100 MG ORAL TABLET 497228 TOPIRAMATE Inactive CYMBALTA 30 MG ORAL CAPSULE DELAYED RELEASE PARTICLES 1 cap by mouth daily for depression CYMBALTA 30 MG ORAL CAPSULE DELAYED RELEASE PARTICLES 195826 DULOXETINE HCL Inactive ZITHROMAX Z-REYNA 250 MG ORAL TABLET 2 today, then 1 daily for 4 d ays ZITHROMAX Z-REYNA 250 MG ORAL TABLET 255502 AZITHROMYCIN Inactive CEFDINIR 300 MG ORAL CAPSULE [...] 20 03/07/07 ZITHROMAX 250 MG ORAL TABLET 438196 AZITHROMYCIN Greer ctive CEFDINIR 300 MG ORAL CAPSULE by mouth twice a day 2011 CEFDINIR 300 MG ORAL CAPSULE 227572 CEFDINIR Inactive PREDNISONE 20 MG ORAL TABLET 2 tabs daily for 3 days, 1 tab daily for 3 days, 1/2 tab daily for 2 days PREDNISONE 20 MG ORAL T ABLET 020662 PREDNISONE Inactive AVELOX 400 MG ORAL TABLET 1 tab by mouth daily AVELOX 400 MG ORAL TABLET 529725 MOXIFLOXACIN HCL Inactive AVELOX 400 MG ORAL TABLET 1 tab by mouth daily AVELOX 400 MG ORAL TABLET 545303 MOXIFLOXACIN HCL Inactive PREDNISONE 20 MG ORAL TABLET Take 3 tabs daily for 3 d ays, 2 tabs daily for 3 days, 1 tab daily for 3 days, 1/2 tab daily for 3 days 11/07 PREDNISONE 20 MG ORAL TABLET 342126 PREDNISONE Inactive LEVAQUIN 500 MG ORAL TABLET take one po QD LEVAQUIN 500 MG ORAL TABLET 226210 LEVOFLOXACIN Inactive AZITHROMYCIN 250 MG ORAL TABLET 2 po qd x 1 day, then 1 po q d x 4 days AZITHROMYCIN 250 MG ORAL TABLET 213737 AZITHROMY GIOVANNI Inactive MEDROL 4 MG ORAL TABLET THERAPY PACK 6 tabs on day 1, 5 tabs on day 2, 4 tabs on day 3, 3 tabs on day 4, 2 tabs on day 5, 1 tab on day 6 2013 MEDROL 4 MG ORAL TABLET THERAPY PACK 986803 METHYLPREDNISOLONE [place] ctive CHERATUSSIN AC 100-10 MG/5ML ORAL SYRUP 5ml po q6hr PRN Cough 20 13/04/14 CHERATUSSIN AC 100-10 MG/5ML ORAL SYRUP 977462 GUAIFENE SIN-CODEINE Inactive TRIAMCINOLONE ACETONIDE 0.1 % EXTERNAL CREAM apply three roger es daily prn rash TRIAMCINOLONE ACETONIDE 0.1 % EXTERNAL CREAM 101 4314 TRIAMCINOLONE ACETONIDE Inactive AZITHROMYCIN 250 MG ORAL TABLET 2 po qd x 1 day, then 1 po q d x 4 days AZITHROMYCIN 250 MG ORAL TABLET 261604 AZITHROMY GIOVANNI Inactive MEDROL 4 MG ORAL TABLET THERAPY PACK 6 pills x 1 day, then 5 pills x 1 day then 4 pills x 1 day, then 3 pills x 1 day, then 2 pills x 1 day, then 1 pill x 1 day, then stop MEDROL 4 MG ORAL TABLET THERAPY PACK 271519 METHYLPREDNISOLONE Inactive AMOXICILLIN 500 MG ORAL CAPSULE 1 tab by mouth 3 times daily x 10 days AMOXICILLIN 500 MG ORAL CAPSULE 715320 AMOXICILL IN Inactive AMOXICILLIN 500 MG ORAL CAPSULE 1 tab by mouth 3 times daily x 10 days AMOXICILLIN 500 MG ORAL CAPSULE [id number] AMOXICILL IN Inactive ZITHROMAX 250 MG ORAL TABLET 2 po today, then 1 po q days 2-5 20 12/08/14 ZITHROMAX 250 MG ORAL TABLET [id number] AZITHROMYCIN Greer ctive AUGMENTIN 875-125 MG ORAL TABLET 1 po BID x 10 days 20 13/01/20 AUGMENTIN 875-125 MG ORAL TABLET AMOXICILLIN-POT CLAVULANATE Inactive ZITHROMAX Z-REYNA 250 MG ORAL TABLET 2 today, then 1 daily for 4 d ays ZITHROMAX Z-REYNA 250 MG ORAL TABLET 831231 AZITHROMYCIN Inactive ZITHROMAX 250 MG ORAL TABLET 2 po today, then 1 po q days 2-5 20 14/03/21 ZITHROMAX 250 MG ORAL TABLET 867603 AZITHROMYCIN [place] [facility] ZITHROMAX Z-REYNA 250 MG ORAL TABLET 2 today, then 1 daily for 4 d ays ZITHROMAX Z-REYNA 250 MG ORAL TABLET 822300 AZITHROMYCIN Inactive CEFDINIR 300 MG ORAL CAPSULE 1 po BID x 10 days 06/21 CEFDINIR 300 MG ORAL CAPSULE 20020704 CEFDINIR Inactive ZITHROMAX 250 MG ORAL TABLET 2 po today, then 1 po q days 2-5 20 13/08/10 ZITHROMAX 250 MG ORAL TABLET 500042 AZITHROMYCIN [place] [facility] LEVAQUIN 500 MG ORAL TABLET 1 tablet by mouth daily 13/09/24 LEVAQUIN 500 MG ORAL TABLET 19971102 LEVOFLOXACIN Inactive SINGULAIR 10 MG ORAL TABLET 1 po qday for allergies 14/01/12 SINGULAIR 10 MG ORAL TABLET 20010504 MONTELUKAST SODIUM Inactive AMOXICILLIN 500 MG ORAL CAPSULE 2 po BID x 10 days 201 09/29/08 AMOXICILLIN 500 MG ORAL CAPSULE 688285 AMOXICILLIN Inactive PREDNISONE 20 MG ORAL TABLET 2 tabs daily for 3 days, 1 tab daily for 3 days, 1/2 tab daily for 2 days PREDNISONE 20 MG ORAL T ABLET 470741 PREDNISONE Inactive ZITHROMAX Z-REYNA 250 MG ORAL TABLET 2 today, then 1 daily for 4 d ays ZITHROMAX Z-REYNA 250 MG ORAL TABLET 539745 AZITHROMYCIN Inactive PREDNISONE 20 MG ORAL TABLET 2 tabs daily for 3 days, 1 tab daily for 3 days, 1/2 tab daily for 2 days PREDNISONE 20 MG ORAL T ABLET 762688 PREDNISONE Inactive ZITHROMAX 250 MG ORAL TABLET 2 po today, then 1 po q days 2-5 20 14/09/04 ZITHROMAX 250 MG ORAL TABLET 884455 AZITHROMYCIN [place] [facility] AMOXICILLIN 500 MG ORAL CAPSULE 1 cap by mouth three times a day AMOXICILLIN 500 MG ORAL CAPSULE 662255 AMOXICILLIN Inactive TERBINAFINE HCL 250 MG ORAL TABLET 1 qDay for nail fungus 7 TERBINAFINE HCL 250 MG ORAL TABLET 834262 TERBINAFINE HCL Inact nael AUGMENTIN 875-125 MG ORAL TABLET 1 po BID x 10 days 16/03/22 AUGMENTIN 875-125 MG ORAL TABLET AMOXICILLIN-POT CLAVULANATE Inactive PREDNISONE 20 MG ORAL TABLET 2 po qd x 5 days PREDNISONE 20 MG ORAL TABLET 963607 PREDNISONE Inactive AZITHROMYCIN 250 MG ORAL TABLET 2 po qd x 1 day, then 1 po q d x 4 days AZITHROMYCIN 250 MG ORAL TABLET 349197 AZITHROMY GIOVANNI Inactive PREDNISONE 50 MG ORAL TABLET Take 50 mg dialy for 6 day s 7 PREDNISONE 50 MG ORAL TABLET 270446 PREDNISONE Inactive AUGMENTIN 875-125 MG ORAL TABLET 1 po BID x 10 days 18/04/16 AUGMENTIN 875-125 MG ORAL TABLET AMOXICILLIN-POT CLAVULANATE Inactive DOXYCYCLINE HYCLATE 100 MG ORAL CAPSULE 1 cap by mouth twice latasha ly DOXYCYCLINE HYCLATE 100 MG ORAL CAPSULE 6190623 DOXYCYCL INE HYCLATE Inactive PREDNISONE 20 MG ORAL TABLET Take 2 tabs day 1 and 2 and 1 t ab days 3 and 4 PREDNISONE 20 MG ORAL TABLET 946103 PREDNISONE Inactive Vital Signs Date Name Value [...] - Chem istry sodium, serum 139 mmol/L 826-725 8442/10/12 potassium, serum 3.8 mmol/L 3.5-5.2 chloride, serum [...] negative Encounters Code Encounter Date Provider Facility CPT-70376 Level 3 Est. Patient 16:08:07 CDT David lion [facility] CPT-28291 Level 3 Est. Patient 16:53:54 CDT May haas MD [facility] CPT-52286 [id number] Vst-Est Level IV 08:41:[address] Carlton Hu MD [facility] CPT-91194 Level 3 Est. Patient 09:46:49 PER DIEM CLERK David lion [facility] CPT-26143 [id number] Vst-Est Level III 11:12:16 CDT Yanet Bess DO [facility] CPT-30996 Level 3 Est. Patient 11:34:49 PER DIEM CLERK Perez Mora MD [facility] CPT-15235 Level 4 Est. Patient 09:51:32 PER DIEM CLERK Carlton rich MD [facility] CPT-68256 Level 3 Est. Patient 10:26:00 PER DIEM CLERK Elise stephenson [facility] CPT-33093 Level 3 Est. Patient 13:35:41 PER DIEM CLERK Carlton rich MD [facility] CPT-68699 Level 3 Est. Patient 10:03:52 PER DIEM CLERK Carlton rich MD [facility] CPT-89265 Level 3 Est. Patient 12:17:50 CDT Hugo Restrepo MD [facility] CPT-49611 Level 3 Est. Patient 13:42:38 CDT Elise stephenosn [facility] CPT-02445 Level 3 Est. Patient 13:23:51 CDT Diya cobian [facility] CPT-66864 Level 3 Est. Patient 14:22:19 PER DIEM CLERK Diya cobian [facility] CPT-79257 Level 3 Est. Patient 10:11:46 CDT Carlton rich MD [facility] CPT-92811 Level 3 Est. Patient 17:29:43 CDT Elise Are ll FAMILY PRACTICE NURSE PRACTITIONER [facility] CPT-18172 Level 3 Est. Patient 11:58:06 CDT Elise Are ll [facility] CPT-85650 Level 4 Est. Patient 14:36:51 CDT Carlton rich MD [facility] CPT-74537 Level 3 Est. Patient 18:16:00 PER DIEM CLERK Blaine Freeman [facility] CPT-04789 Level 3 Est. Patient 09:45:49 PER DIEM CLERK Carlton rich MD [facility] CPT-05137 Level 3 Est. Patient 13:19:20 CDT Carlton rich MD [facility] CPT-41870 Level 3 Est. Patient 13:06:43 CDT Ridge tam DO [facility] CPT-70135 Level 3 Est. Patient 10:03:07 CDT Perez Mora MD [facility] CPT-74527 Level 3 Est. Patient 19:50:35 PER DIEM CLERK Carlton rich MD [facility] CPT-23976 Level 4 Est. Patient 18:05:01 PER DIEM CLERK Carlton rich MD [facility] CPT-46054 Level 3 Est. Patient 10:45:55 PER DIEM CLERK Hugo Restrepo MD [facility] CPT-65637 Level 3 Est. Patient 14:12:49 CDT Griffin lincoln [facility] CPT-84736 Level 3 Est. Patient 17:37:24 CDT Carlton rich MD [facility] CPT-43443 Level 3 Est. Patient 16:51:54 CDT Carlton rich MD [facility] CPT-62353 Level 3 Est. Patient 12:18:11 CDT Hugo Restrepo MD [facility] CPT-73171 Level 3 Est. Patient 11:30:25 CDT Marcy crisostomo MD PhD [facility] CPT-31432 Level 3 Est. Patient 12:00:47 PER DIEM CLERK Carlton rich MD [facility] CPT-96566 Level 3 Est. Patient 16:31:06 PER DIEM CLERK Carlton rich MD [facility] CPT-76461 Level 3 Est. Patient 16:23:24 PER DIEM CLERK Ridge tam [facility] CPT-69500 Level 3 Est. Patient 12:34:12 CDT Carlton rich MD [facility] CPT-67723 Level 2 Est. Patient 15:43:33 CDT Robi armstrong MD [facility] CPT-11834 Level 4 Est. Patient 14:04:44 CDT Carlton rich MD [facility] CPT-22552 Level 3 Est. Patient 05:47:59 CDT Ridge tam [facility] CPT-22880 Level 3 Est. Patient 13:12:53 PER DIEM CLERK Carlton rich MD [facility] CPT-79696 Level 3 Est. Patient 14:26:53 CDT Hugo Restrepo MD [facility] Procedures Code Procedure Name Date Entry Date Standard Desc ription CPT-000 Give Appropriate Flu Vaccine 14:14:31 CDT 2 CPT-J1040 Depo Medrol 80 mg (Methyl Prednisolone A cetate) 10:42:44 CDT CPT-J1100 Decadron 8mg (Dexamethasone) 10:42:44 CDT 2 CPT-J0696 Rocephin 1gm Inj Solr 14:32:13 CDT CPT-J1020 Depo Medrol 60 mg (Methyl Prednisolone A cetate) 14:32:13 CDT CPT-J1100 Decadron 6mg (Dexamethasone) 14:32:13 CDT 2 CPT-89080 Hip bilat min 2V w AP pelvis 13:16:20 CDT 2 CPT-89066 Pelvis only 13:07:33 CDT CPT-33932 Spec Collection and Handling Fee 11:25:12 C DT CPT-75878 Fluzone Quadrivalent Intramuscular Suspe nsion 0.5 ML 14:31:55 CDT CPT-10844 Abx/Therapy Injection 13:28:47 PER DIEM CLERK CPT-J2930 Solu Medrol 125 mg (Methyl Prednisolone Sodium Succinate) 12:00:47 PER DIEM CLERK CPT-67577 Venipuncture Draw Fee 11:33:31 CDT CPT-62611 EKG Trac and Interp 11:21:09 CDT CPT-26472 Chest 2V Frontal and Lat 11:21:09 CDT 12/15 CPT-82010 Venipuncture Draw Fee 08:02:34 CDT CPT-66189 Chest 2V Frontal and Lat 05:47:59 CDT 06/05
--- OUTSIDE RECORDS SUMMARY | 2019-10-08 09:01 | XMS REPORT | Clinical Summary ---
Author Author Caitlin, Juliana Martinez Organization [employer] [facility] Address Unknown Phone Unavailable Allergies, Adverse [...] URI 465.9 Inactive Ridge Bess DO Ac la posta upper respiratory infections of unspecified site Body [...] for up 2 weeks TRIAMCINOLONE ACETON KAYLA [id number] Active David Marianne JIG BORING MACHINE SET UP 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 AMOXICILLIN 500 MG ORAL CAPSULE 1 cap by mouth twice daily 10/21 AMOXICILLIN 65986331892 Active David Marianne JIG BORING MACHINE SET UP OPERATOR Activ e ELMIRON 100 MG ORAL CAPSULE 2 capsules in the morning and 1 capsule at night PENTOSAN POLYSULFATE SODIUM 72262850137 Active Cinthia H art 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 Active CYMBALTA 30 MG ORAL CAPSULE DELAYED RELEASE PARTICLES 1 cap by mouth daily for depression DULOXETINE HCL 05022658667 No Longer Active Carlton Hu MD Active CYMBALTA 60 MG ORAL CAPSULE DELAYED RELEASE PARTICLES 1 cap by mouth daily for mood and pain DULOXETINE HCL 13995635403 Active Carlton Hu MD Active TUSSIONEX PENNKINETIC ER 10-8 MG/5ML ORAL SUSPENSION E XTENDED RELEASE 5ml po q12hr PRN Cough HYDROCOD POLST-CHLORPHEN POLST 77623916966 Active David Marianne JIG BORING MACHINE SET UP 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 PREDNISONE 20 MG ORAL TABLET Take 2 tabs day 1 and 2 and 1 t ab days 3 and 4 PREDNISONE 97540452551 No Longer Active David Marianne JIG BORING MACHINE SET UP 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 DOXYCYCLINE HYCLATE 100 MG ORAL CAPSULE 1 cap by mouth twice latasha ly DOXYCYCLINE HYCLATE 41476315933 No Longer Active David Marianne JIG BORING MACHINE SET UP 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 TOPAMAX 100 MG ORAL TABLET Take 1 tablet po bid TOPIRAMATE 30695506897 No Longer Active David Marianne JIG BORING MACHINE SET UP 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 TUSSIONEX PENNKINETIC ER 10-8 MG/5ML ORAL SUSPENSION E XTENDED RELEASE 5ml po q12hr PRN Cough HYDROCOD POLST-CHLORPHEN POLST 5 6253041873 No Longer Active David Marianne JIG BORING MACHINE SET UP 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 AUGMENTIN 875-125 MG ORAL TABLET 1 po BID x 10 days 18/04/16 AMOXICILLIN-POT CLAVULANATE 62069069243 No Longer Active David Lopes APRN Active PREDNISONE 50 MG ORAL TABLET Take 50 mg dialy for 6 day s 7 PREDNISONE 52713452595 No Longer Active David Marianne JIG BORING MACHINE SET UP 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 TUSSIONEX PENNKINETIC ER 10-8 MG/5ML ORAL SUSPENSION E XTENDED RELEASE 5ml po q12hr PRN Cough HYDROCOD POLST-CHLORPHEN POLST 5 9412386598 No Longer Active Cherelle Torres RN Active PREDNISONE 20 MG ORAL TABLET two tabs by mouth today, then one tab by mouth days two and three and four PREDNISONE 50775309502 No Lo nger Active Cherelle Torres RN Active AZITHROMYCIN 250 MG ORAL TABLET 2 po qd x 1 day, then 1 po q d x 4 days AZITHROMYCIN 41455580328 No Longer Active Ridge Bess DO Active PREDNISONE 20 MG ORAL TABLET 2 po qd x 5 days P REDNISONE 79713972510 No Longer Active Perez Mora MD Active PROAIR HFA 108 (90 BASE) MCG/ACT INHALATION AEROSOL SO LUTION 2 puffs four times a day as needed ALBUTEROL SULFATE 24544863210 No Long er Active Becky FUENTES Active ASPIRIN 81 MG ORAL TABLET 1 po qd ASPIRIN 62006518604 Active Carlton Hu MD Active PREDNISONE 20 MG ORAL TABLET 1 tab twice daily for 3 d ay, then one daily for three days PREDNISONE 54912523445 No Longer Active Carlton Hu MD Active AUGMENTIN 875-125 MG ORAL TABLET 1 po BID x 10 days 20 16/03/22 AMOXICILLIN-POT CLAVULANATE 57346283560 No Longer Active Eilse Garcia APRN Active TERBINAFINE HCL 250 MG ORAL TABLET 1 qDay for nail fungus 7 TERBINAFINE HCL 55616078749 No Longer Active Carlton Hu MD A ctive AMOXICILLIN 500 MG ORAL CAPSULE 1 cap by mouth three times a day AMOXICILLIN 81572210370 No Longer Active Carlton Hu MD Active ELMIRON 100 MG ORAL CAPSULE 2 tablets in the am and 1 tablet at hs PENTOSAN POLYSULFATE SODIUM 58999207144 No Longer Active Robert jade Hu MD Active MUCINEX D 60-600 MG ORAL TABLET EXTENDED RELEASE 12 HOUR 1 t ab po q am PSEUDOEPHEDRINE-GUAIFENESIN 42196098502 No Longer Act nael Carlton Hu MD Active MUCINEX DM MAXIMUM STRENGTH 60-1200 MG ORAL TABLET EXT ENDED RELEASE 12 HOUR 1 tab po q am DEXTROMETHORPHAN-GUAIFENESIN 75613388910 No Longer Active Carlton Hu MD Active TUSSIONEX PENNKINETIC ER 10-8 MG/5ML ORAL SUSPENSION E XTENDED RELEASE 5ml po q12hr PRN Cough HYDROCOD POLST-CHLORPHEN POLST 5 6423062295 No Longer Active Carlton Hu MD Active POTASSIUM CHLORIDE ER 20 MEQ ORAL TABLET EXTENDED RELE ASE Take 1 by mouth 4 times daily for 7 days POTASSIUM CHLORIDE 57929211697 No Longer Active Carlton Hu MD Active ZITHROMAX 250 MG ORAL TABLET 2 po today, then 1 po q days 2-5 14/09/04 AZITHROMYCIN 70531185259 No Longer Active Elise Garcia APRN Active TUSSIONEX PENNKINETIC ER 10-8 MG/5ML ORAL SUSPENSION E XTENDED RELEASE 5 ml twice a day as needed for cough HYDROCOD POLST-CHLORPH EN POLST 29534806851 No Longer Active Elise Garcia APRN Active MONTELUKAST SODIUM 10 MG ORAL TABLET 1 po daily for Allergy MONTELUKAST SODIUM 11414244957 Active Carlton uH MD Ac tive TUSSIONEX PENNKINETIC ER 10-8 MG/5ML ORAL SUSPENSION E XTENDED RELEASE 5ml po q12hr PRN Cough HYDROCOD POLST-CHLORPHEN POLST 5 9448253895 No Longer Active Hugo Restrepo MD Active GABAPENTIN 100 MG ORAL CAPSULE 1 po BID for fibromyalgia GABAPENTIN 67365887787 Active ALFREDO Holly Active LYRICA 100 MG ORAL CAPSULE Take 1 tab po BID for fibromyalgia 20 11/08/21 PREGABALIN 16125588244 No Longer Active Elise Garcia APRN A ctive PREDNISONE 20 MG ORAL TABLET 2 tabs daily for 3 days, 1 tab daily for 3 days, 1/2 tab daily for 2 days PREDNISONE 20188635905 No Longer Active Jillina Frazell JIG BORING MACHINE SET UP 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 TUSSIONEX PENNKINETIC ER 10-8 MG/5ML ORAL SUSPENSION E XTENDED RELEASE 5 mL PO q 12 hrs PRN cough HYDROCOD POLST-CHLORPHEN POLST 896352 18105 No Longer Active Jillina Frazell JIG BORING MACHINE SET UP 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 FLUTICASONE PROPIONATE 50 MCG/ACT NASAL SUSPENSION 2 s prays each nostril daily until bottle is empty FLUTICASONE PROPIONATE 176935978 99 No Longer Active Jillina Frazell JIG BORING MACHINE SET UP 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 ASMANEX 60 METERED DOSES 220 MCG/INH INHALATION AEROSO L POWDER BREATH ACTIVATED 1 puff bid with rinse after MOMETASONE FUROATE 8966900 4102 No Longer Active Jillina Frazell JIG BORING MACHINE SET UP 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 ZITHROMAX Z-REYNA 250 MG ORAL TABLET 2 today, then 1 daily for 4 d ays AZITHROMYCIN 21561763170 No Longer Active Elise Garcia JIG BORING MACHINE SET UP 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 TUSSIONEX PENNKINETIC ER 10-8 MG/5ML ORAL SUSPENSION E XTENDED RELEASE 5ml po q12hr PRN Cough HYDROCOD POLST-CHLORPHEN POLST 5 5760015832 No Longer Active Elise Garcia JIG BORING MACHINE SET UP 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 PREDNISONE 20 MG ORAL TABLET 2 tabs daily for 3 days, 1 tab daily for 3 days, 1/2 tab daily for 2 days PREDNISONE 69975551984 No Longer Active Jillina Frazell JIG BORING MACHINE SET UP 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 AMOXICILLIN 500 MG ORAL CAPSULE 2 po BID x 10 days 201 09/29/08 AMOXICILLIN 61913089730 No Longer Active Diya De Guzman JIG BORING MACHINE SET UP OPERATOR Act nael SINGULAIR 10 MG ORAL TABLET 1 po qday for allergies 14/01/12 MONTELUKAST SODIUM 03367937308 No Longer Active Carlton Hu MD Active LEVAQUIN 500 MG ORAL TABLET 1 tablet by mouth daily 13/09/24 LEVOFLOXACIN 57741810286 No Longer Active Carlton Hu MD Acti ve FLUTICASONE PROPIONATE 50 MCG/ACT NASAL SUSPENSION 2 s prays each nostril daily for 2 weeks, then 1 spray each nostril daily. FLUTICASONE PROPIONATE 57227014301 Active Carlton Hu MD Active ZITHROMAX 250 MG ORAL TABLET 2 po today, then 1 po q days 2-5 20 13/08/10 AZITHROMYCIN 47696628066 No Longer Active Elise Garcia JIG BORING MACHINE SET UP 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 XANAX 0.5 MG ORAL TABLET one tablet by mouth daily prn anxiety 2015 ALPRAZOLAM 67607381140 Active ALFREDO Holly Active CEFDINIR 300 MG ORAL CAPSULE 1 po BID x 10 days CEFDINIR 92093401015 No Longer Active Carlton Hu MD Active ZOCOR 40 MG ORAL TABLET 1 tab by mouth daily SI MVASTATIN 41140778228 No Longer Active Carlton Hu MD Active CYCLOBENZAPRINE HCL 10 MG ORAL TABLET 1 tablet by mouth BID prn had pain CYCLOBENZAPRINE HCL 65880590131 No Longer Active Jayden Hu MD Active LEVOFLOXACIN 500 MG ORAL TABLET 1 tab PO daily x 10 days LEVOFLOXACIN 00334483321 No Longer Active Carlton Hu MD Acti ve PREDNISONE 20 MG ORAL TABLET 3 tab PO qd x 2d, 2 tab P O qd x 2d, 1 tab PO qd x 2d, 1/2 tab PO qd x 2d PREDNISONE 95705919980 No Lo nger Active Carlton Hu MD Active FLUTICASONE PROPIONATE 50 MCG/ACT NASAL SUSPENSION 1 t o 2 sprays each nostril daily FLUTICASONE PROPIONATE 62072997026 No Longer Ac tive Blaine HERNANDEZ Active CHERATUSSIN AC 100-10 MG/5ML ORAL SYRUP 1 tsp by mouth every 4 hours as needed for cough GUAIFENESIN-CODEINE 46590772322 No Longe r Active Blaine HERNANDEZ Active PROMETHAZINE-CODEINE 6.25-10 MG/5ML ORAL SYRUP 1 tsp b y mouth every 6 hours if needed for cough PROMETHAZINE-CODEINE 23297057540 No Longer Active Blaine HERNANDEZ Active CHERATUSSIN AC 100-10 MG/5ML ORAL SYRUP 1 tsp by mouth every 4 hours as needed for cough GUAIFENESIN-CODEINE 21969151367 No Longe r Active Blaine HERNANDEZ Active ZITHROMAX Z-REYNA 250 MG ORAL TABLET 2 today, then 1 daily for 4 d ays AZITHROMYCIN 42418134528 No Longer Active Columba Raida Act nael ZITHROMAX 250 MG ORAL TABLET 2 po today, then 1 po q days 2-5 20 14/03/21 AZITHROMYCIN 08071669851 No Longer Active Carlton Hu MD Active ZITHROMAX Z-REYNA 250 MG ORAL TABLET 2 today, then 1 daily for 4 d ays AZITHROMYCIN 37303076946 No Longer Active Columba Raida Act nael AUGMENTIN 875-125 MG ORAL TABLET 1 po BID x 10 days 13/01/20 AMOXICILLIN-POT CLAVULANATE 72313733424 No Longer Active Diya De Guzman APRN Active ZITHROMAX 250 MG ORAL TABLET 2 po today, then 1 po q days 2-5 20 12/08/14 AZITHROMYCIN 96776569163 No Longer Active Carlton Hu MD Active TRAMADOL HCL 50 MG ORAL TABLET 1 po tid with ES Tylenol TRAMADOL HCL 68041886511 Active Carlton Hu MD Active PREMARIN 0.625 MG ORAL TABLET TAKE 1 TAB BY MOUTH DAILY ESTROGENS CONJUGATED 12265333781 No Longer Active Ridge Bess DO A ctive CYMBALTA 30 MG ORAL CAPSULE DELAYED RELEASE PARTICLES 1 cap by mouth daily DULOXETINE HCL 51698672012 No Longer Active Ridge Ya ee DO Active AMOXICILLIN 500 MG ORAL CAPSULE 1 tab by mouth 3 times daily x 10 days AMOXICILLIN 64024782358 No Longer Active Carlton bustamante MD Active AMOXICILLIN 500 MG ORAL CAPSULE 1 tab by mouth 3 times daily x 10 days AMOXICILLIN 04888130168 No Longer Active Carlton bustamante MD Active PROMETHAZINE-CODEINE 6.25-10 MG/5ML ORAL SYRUP 1 tsp b y mouth every 8 hours prn cough PROMETHAZINE-CODEINE 77459669765 No Longer Acti ve Carlton Hu MD Active MEDROL 4 MG ORAL TABLET THERAPY PACK 6 pills x 1 day, then 5 pills x 1 day then 4 pills x 1 day, then 3 pills x 1 day, then 2 pills x 1 day, then 1 pill x 1 day, then stop METHYLPREDNISOLONE 94555539281 No Long er Active Perez Mora MD Active AZITHROMYCIN 250 MG ORAL TABLET 2 po qd x 1 day, then 1 po q d x 4 days AZITHROMYCIN 31956486075 No Longer Active Perez Ambriz MD Active SYMBICORT 160-4.5 MCG/ACT INHALATION AEROSOL 2 puffs bid wit h rinse after BUDESONIDE-FORMOTEROL FUMARATE 01667360388 N o Longer Active Perez Mora MD Active LYRICA 75 MG ORAL CAPSULE TAKE 1 CAPSULE BY MOUTH TWICE DAILY PREGABALIN 70621935379 No Longer Active Carlton Hu MD Acti ve TOPAMAX 25 MG ORAL TABLET 1 qHS x 1 week, then 1 BID x 1 week, then 1 qAM and 2 qHS x 1 week, then 2 BID (migraine prevention) T OPIRAMATE 24713371679 No Longer Active Jerica FUENTES Active TOPAMAX 50 MG ORAL TABLET take 1 tab po BID for migraines. 07/02 TOPIRAMATE 54246199588 No Longer Active Jerica FUENTES Active TRIAMCINOLONE ACETONIDE 0.1 % EXTERNAL CREAM apply three roger es daily prn rash TRIAMCINOLONE ACETONIDE 97401194169 No Longer Active Carlton Hu MD Active PAXIL 40 MG ORAL TABLET take 1 tab po qday for depression 0 PAROXETINE HCL 27777720768 Active Carlton Hu MD Active CHERATUSSIN AC 100-10 MG/5ML ORAL SYRUP 5ml po q6hr PRN Cough 20 13/04/14 GUAIFENESIN-CODEINE 00248207601 No Longer Active Carlton Hu MD Active MEDROL 4 MG ORAL TABLET THERAPY PACK 6 tabs on day 1, 5 tabs on day 2, 4 tabs on day 3, 3 tabs on day 4, 2 tabs on day 5, 1 tab on day 6 2013 METHYLPREDNISOLONE 38024477811 No Longer Active Perez Mora MD Active AZITHROMYCIN 250 MG ORAL TABLET 2 po qd x 1 day, then 1 po q d x 4 days AZITHROMYCIN 40077324710 No Longer Active Perez Ambriz MD Active PROPRANOLOL HCL 60 MG ORAL TABLET 1 PO Q D PROPRANOLOL HCL 91515108503 No Longer Active Perez Mora MD Activ e CHERATUSSIN AC 100-10 MG/5ML ORAL SYRUP take one tsp po Q 6h ours prn cough GUAIFENESIN-CODEINE 89314024728 No Longer Active Zia Mora MD Active AUGMENTIN 875-125 MG ORAL TABLET 1 tab by mouth twice daily with food AMOXICILLIN-POT CLAVULANATE 83264363974 No Longer Act nael Perez Mora MD Active CHERATUSSIN AC 100-10 MG/5ML ORAL SYRUP 1 tsp by mouth every 4 hours as needed for cough GUAIFENESIN-CODEINE 62708441568 No Longe r Active Hugo Restrepo MD Active ACETAMINOPHEN-CODEINE #3 300-30 MG ORAL TABLET 1 PO Q 4-6 HRS IA N PAIN ACETAMINOPHEN-CODEINE 31033344399 No Longer Active Hugo Restrepo MD Active LEVAQUIN 500 MG ORAL TABLET take one po QD LEVO FLOXACIN 25242453328 No Longer Active Griffin HERNANDEZ Active PREDNISONE 20 MG ORAL TABLET Take 3 tabs daily for 3 d ays, 2 tabs daily for 3 days, 1 tab daily for 3 days, 1/2 tab daily for 3 days 11/07 PREDNISONE 98328935866 No Longer Active Carlton Hu MD Acti ve AVELOX 400 MG ORAL TABLET 1 tab by mouth daily MOXIFLOXACIN HCL 69067845199 No Longer Active Carlton Hu MD Active CHERATUSSIN AC 100-10 MG/5ML ORAL SYRUP 1 tsp by mouth every 4 hours as needed for cough GUAIFENESIN-CODEINE 06656583276 No Longe r Active Hugo Restrepo MD Active AVELOX 400 MG ORAL TABLET 1 tab by mouth daily MOXIFLOXACIN HCL 27584996816 No Longer Active Marcy De La Rosa MD PhD Active TERBINAFINE HCL 250 MG ORAL TABLET 1 qDay T ERBINAFINE HCL 61397248310 No Longer Active Marcy De La Rosa MD PhD Active CHERATUSSIN AC 100-10 MG/5ML ORAL SYRUP 1 tsp by mouth every 4 hours as needed for cough GUAIFENESIN-CODEINE 99469317465 No Longe r Active Marcy De La Rosa MD PhD Active AVELOX 400 MG ORAL TABLET 1 tab by mouth daily MOXIFLOXACIN HCL 21895219424 No Longer Active Marcy De La Rosa MD PhD Active HYDROCODONE-ACETAMINOPHEN 5-325 MG ORAL TABLET 1 po q 6hr PRN co ugh HYDROCODONE-ACETAMINOPHEN 75874435233 No Longer Active Marcy De La Rosa MD PhD Active PREDNISONE 20 MG ORAL TABLET 2 tabs daily for 3 days, 1 tab daily for 3 days, 1/2 tab daily for 2 days PREDNISONE 51307203587 No Longer Active Carlton Hu MD Active CEFDINIR 300 MG ORAL CAPSULE by mouth twice a day 2011 CEFDINIR 45311079629 No Longer Active Carlton Hu MD Acti ve HYDROCHLOROTHIAZIDE 25 MG ORAL TABLET 1 TAB PO DAILY HYDROCHLOROTHIAZIDE 39209487110 Active Carlton Hu MD A ctive ACETAMINOPHEN-CODEINE #3 300-30 MG ORAL TABLET 1 tablet po q 4-6 hrs prn pain ACETAMINOPHEN-CODEINE 31005188236 No Longer Active Ridge Bess DO Active ZITHROMAX 250 MG ORAL TABLET 2 po today, then 1 po q days 2-5 20 03/07/07 AZITHROMYCIN 70906572548 No Longer Active Carlton Hu MD Active CHERATUSSIN AC 100-10 MG/5ML ORAL SYRUP take 1 tsp po q4-6 h ours prn cough GUAIFENESIN-CODEINE 66010303881 No Longer Active Jayden Hu MD Active ACETAMINOPHEN-CODEINE #3 300-30 MG ORAL TABLET 1 PO Q 4-6 HR PRN PAIN ACETAMINOPHEN-CODEINE 24401074336 No Longer Active Da raimundo Hu MD Active LORTAB 7.5-500 MG/15ML ORAL ELIXIR 7.5 ml po q 4 hour prn cough HYDROCODONE-ACETAMINOPHEN 10414972716 No Longer Active Carlton Hu MD Active PREDNISONE 20 MG ORAL TABLET 1 po bid 3 days, then 1 po q day 3 days PREDNISONE 72746484016 No Longer Active Carlton Hu MD Active CEFDINIR 300 MG ORAL CAPSULE by mouth twice a day 2011 CEFDINIR 05434508463 No Longer Active Carlton Hu MD Acti ve CEFDINIR 300 MG ORAL CAPSULE by mouth twice a day 2010 CEFDINIR 54092140601 No Longer Active Carlton Hu MD Acti ve CEFDINIR 300 MG ORAL CAPSULE by mouth twice a day 2010 CEFDINIR 77401173067 No Longer Active Carlton Hu MD Acti ve TESSALON PERLES 100 MG ORAL CAPSULE 1 tablet by mouth 3 times daily as needed for cough BENZONATATE 86305971729 No Longer Active Carlton Hu MD Active CEFDINIR 300 MG ORAL CAPSULE by mouth twice a day 2010 CEFDINIR 11820733777 No Longer Active Carlton Hu MD Acti ve ZITHROMAX Z-REYNA 250 MG ORAL TABLET 2 today, then 1 daily for 4 d ays AZITHROMYCIN 84984620812 No Longer Active Hugo Restrepo MD Active TESSALON PERLES 100 MG ORAL CAPSULE 1 tablet by mouth 3 times daily as needed for cough TESSALON PERLES 100 MG ORAL CAPSULE 32845 7 BENZONATATE Inactive PREDNISONE 20 MG ORAL TABLET 1 po bid 3 days, then 1 po q day 3 days PREDNISONE 20 MG ORAL TABLET 991432 PREDNISONE Greer ctive LORTAB 7.5-500 MG/15ML ORAL [...] cough CHERATUSSIN AC 100-10 MG/5ML ORAL SYRUP 424636 GUAIFENESIN-CODEINE Inactive ACETAMINOPHEN-CODEINE #3 300-30 MG ORAL TABLET 1 tablet po q 4-6 hrs prn pain ACETAMINOPHEN-CODEINE #3 300-30 MG ORAL TABLET ACETAMINOPHEN-CODEINE Inactive HYDROCODONE-ACETAMINOPHEN 5-325 MG ORAL TABLET 1 po q 6hr PRN co ugh HYDROCODONE-ACETAMINOPHEN 5-325 MG ORAL TABLET 514945 HYDROCODONE-ACETAMINOPHEN Inactive AVELOX 400 MG ORAL TABLET 1 tab by mouth daily AVELOX 400 MG ORAL TABLET 948242 MOXIFLOXACIN HCL Inactive CHERATUSSIN AC 100-10 MG/5ML ORAL SYRUP 1 tsp by mouth every 4 hours as needed for cough CHERATUSSIN AC 100-10 MG/5ML ORAL SYRUP 9 56986 GUAIFENESIN-CODEINE Inactive TERBINAFINE HCL 250 MG ORAL TABLET 1 qDay 07/08 TERBINAFINE HCL 250 MG ORAL TABLET 363521 TERBINAFINE HCL Inactive CHERATUSSIN AC 100-10 MG/5ML ORAL SYRUP 1 tsp by mouth every 4 hours as needed for cough CHERATUSSIN AC 100-10 MG/5ML ORAL SYRUP 9 74713 GUAIFENESIN-CODEINE Inactive ACETAMINOPHEN-CODEINE #3 300-30 MG ORAL TABLET 1 PO Q 4-6 HRS IA N PAIN ACETAMINOPHEN-CODEINE #3 300-30 MG ORAL TABLET ACETAMINOPHEN-CODEINE Inactive CHERATUSSIN AC 100-10 MG/5ML ORAL SYRUP 1 tsp by mouth every 4 hours as needed for cough CHERATUSSIN AC 100-10 MG/5ML ORAL SYRUP 9 99012 GUAIFENESIN-CODEINE Inactive AUGMENTIN 875-125 MG ORAL TABLET 1 tab by mouth twice daily with food AUGMENTIN 875-125 MG ORAL TABLET AMOXICIL MADELINE-POT CLAVULANATE Inactive CHERATUSSIN AC 100-10 MG/5ML ORAL SYRUP take one tsp po Q 6h ours prn cough CHERATUSSIN AC 100-10 MG/5ML ORAL SYRUP 410111 GUAIFENESIN-CODEINE Inactive PROPRANOLOL HCL 60 MG ORAL TABLET 1 PO Q D PROPRANOLOL HCL 60 MG ORAL TABLET 270039 PROPRANOLOL HCL Inactive TOPAMAX 50 MG ORAL TABLET take 1 tab po BID for migraines. 07/02 TOPAMAX 50 MG ORAL TABLET 248173 TOPIRAMATE Inacti ve TOPAMAX 25 MG ORAL TABLET 1 qHS x 1 week, then 1 BID x 1 week, then 1 qAM and 2 qHS x 1 week, then 2 BID (migraine prevention) TOPAMAX 25 MG ORAL TABLET 782031 TOPIRAMATE Inactive LYRICA 75 MG ORAL CAPSULE TAKE 1 CAPSULE BY MOUTH TWICE DAILY LYRICA 75 MG ORAL CAPSULE PREGABALIN Inactive SYMBICORT 160-4.5 MCG/ACT INHALATION AEROSOL 2 puffs bid wit h rinse after SYMBICORT 160-4.5 MCG/ACT INHALATION AEROSOL BUDESONIDE- FORMOTEROL FUMARATE Inactive PROMETHAZINE-CODEINE 6.25-10 MG/5ML ORAL SYRUP 1 tsp b y mouth every 8 hours prn cough PROMETHAZINE-CODEINE 6.25-10 MG/ 5ML ORAL SYRUP 149179 PROMETHAZINE-CODEINE Inactive CYMBALTA 30 MG ORAL CAPSULE DELAYED RELEASE PARTICLES 1 cap by mouth daily CYMBALTA 30 MG ORAL CAPSULE DELAYED RELE ASE PARTICLES 734525 DULOXETINE HCL Inactive PREMARIN 0.625 MG ORAL TABLET TAKE 1 TAB BY MOUTH DAILY PREMARIN 0.625 MG ORAL TABLET ESTROGENS CONJUGATED Inactive CHERATUSSIN AC 100-10 MG/5ML ORAL SYRUP 1 tsp by mouth every 4 hours as needed for cough CHERATUSSIN AC 100-10 MG/5ML ORAL SYRUP 9 32172 GUAIFENESIN-CODEINE Inactive PROMETHAZINE-CODEINE 6.25-10 MG/5ML ORAL SYRUP 1 tsp b y mouth every 6 hours if needed for cough PROMETHAZINE-CODEINE 6.25-10 MG/5ML ORAL SYRUP 178725 PROMETHAZINE-CODEINE Inactive CHERATUSSIN AC 100-10 MG/5ML ORAL SYRUP 1 tsp by mouth every 4 hours as needed for cough CHERATUSSIN AC 100-10 MG/5ML ORAL SYRUP 9 15882 GUAIFENESIN-CODEINE Inactive FLUTICASONE PROPIONATE 50 MCG/ACT NASAL SUSPENSION 1 t o 2 sprays each nostril daily FLUTICASONE PROPIONATE 50 MCG/AC T NASAL SUSPENSION 5308641 FLUTICASONE PROPIONATE Inactive PREDNISONE 20 MG ORAL TABLET 3 tab PO qd x 2d, 2 tab P O qd x 2d, 1 tab PO qd x 2d, 1/2 tab PO qd x 2d PREDNISONE 20 MG ORAL TAB LET 408123 PREDNISONE Inactive LEVOFLOXACIN 500 MG ORAL TABLET 1 tab PO daily x 10 days LEVOFLOXACIN 500 MG ORAL TABLET 184470 LEVOFLOXACIN Inactive CYCLOBENZAPRINE HCL 10 MG ORAL TABLET 1 tablet by mouth BID prn had pain CYCLOBENZAPRINE HCL 10 MG ORAL TABLET 015622 CYCLOBENZAPRINE HCL Inactive ZOCOR 40 MG ORAL TABLET 1 tab by mouth daily 4 ZOCOR 40 MG ORAL TABLET 985500 SIMVASTATIN Inactive TUSSIONEX PENNKINETIC ER 10-8 MG/5ML [...] FLUTICASONE PROPIO EFE 50 MCG/ACT NASAL SUSPENSION 7262415 FLUTICASONE PROPIONATE Inactive TUSSIONEX PENNKINETIC ER 10-8 [...] three days PREDNISONE 20 MG ORAL TABLET 852381 PREDNIS ONE Inactive PROAIR HFA 108 (90 BASE) MCG/ACT INHALATION AEROSOL SO LUTION 2 puffs four times a day as needed PROAIR HFA 108 (90 B ASE) MCG/ACT INHALATION AEROSOL SOLUTION ALBUTEROL SULFATE Inactive PREDNISONE 20 MG ORAL TABLET two tabs by mouth today, then one tab by mouth days two and three and four PREDNISONE 20 MG ORAL TAB LET 908551 PREDNISONE Inactive TUSSIONEX PENNKINETIC ER 10-8 MG/5ML [...] bid 04/20 TOPAMAX 100 MG ORAL TABLET 560324 TOPIRAMATE Inactive CYMBALTA 30 MG ORAL CAPSULE DELAYED RELEASE PARTICLES 1 cap by mouth daily for depression CYMBALTA 30 MG ORAL CAPSULE DELAYED RELEASE PARTICLES 683948 DULOXETINE HCL Inactive ZITHROMAX Z-REYNA 250 MG ORAL TABLET 2 today, then 1 daily for 4 d ays ZITHROMAX Z-REYNA 250 MG ORAL TABLET 922432 AZITHROMYCIN Inactive CEFDINIR 300 MG ORAL CAPSULE [...] 20 03/07/07 ZITHROMAX 250 MG ORAL TABLET 724837 AZITHROMYCIN Greer ctive CEFDINIR 300 MG ORAL CAPSULE by mouth twice a day 2011 CEFDINIR 300 MG ORAL CAPSULE 972768 CEFDINIR Inactive PREDNISONE 20 MG ORAL TABLET 2 tabs daily for 3 days, 1 tab daily for 3 days, 1/2 tab daily for 2 days PREDNISONE 20 MG ORAL T ABLET 078208 PREDNISONE Inactive AVELOX 400 MG ORAL TABLET 1 tab by mouth daily AVELOX 400 MG ORAL TABLET 002443 MOXIFLOXACIN HCL Inactive AVELOX 400 MG ORAL TABLET 1 tab by mouth daily AVELOX 400 MG ORAL TABLET 316160 MOXIFLOXACIN HCL Inactive PREDNISONE 20 MG ORAL TABLET Take 3 tabs daily for 3 d ays, 2 tabs daily for 3 days, 1 tab daily for 3 days, 1/2 tab daily for 3 days 11/07 PREDNISONE 20 MG ORAL TABLET 246636 PREDNISONE Inactive LEVAQUIN 500 MG ORAL TABLET take one po QD LEVAQUIN 500 MG ORAL TABLET 796407 LEVOFLOXACIN Inactive AZITHROMYCIN 250 MG ORAL TABLET 2 po qd x 1 day, then 1 po q d x 4 days AZITHROMYCIN 250 MG ORAL TABLET 008648 AZITHROMY GIOVANNI Inactive MEDROL 4 MG ORAL TABLET THERAPY PACK 6 tabs on day 1, 5 tabs on day 2, 4 tabs on day 3, 3 tabs on day 4, 2 tabs on day 5, 1 tab on day 6 2013 MEDROL 4 MG ORAL TABLET THERAPY PACK 175705 METHYLPREDNISOLONE Horse Shoe ctive CHERATUSSIN AC 100-10 MG/5ML ORAL SYRUP 5ml po q6hr PRN Cough 20 13/04/14 CHERATUSSIN AC 100-10 MG/5ML ORAL SYRUP 378216 GUAIFENE SIN-CODEINE Inactive TRIAMCINOLONE ACETONIDE 0.1 % EXTERNAL CREAM apply three roger es daily prn rash TRIAMCINOLONE ACETONIDE 0.1 % EXTERNAL CREAM 101 4314 TRIAMCINOLONE ACETONIDE Inactive AZITHROMYCIN 250 MG ORAL TABLET 2 po qd x 1 day, then 1 po q d x 4 days AZITHROMYCIN 250 MG ORAL TABLET [id number] AZITHROMY GIOVANNI Inactive MEDROL 4 MG ORAL TABLET THERAPY PACK 6 pills x 1 day, then 5 pills x 1 day then 4 pills x 1 day, then 3 pills x 1 day, then 2 pills x 1 day, then 1 pill x 1 day, then stop MEDROL 4 MG ORAL TABLET THERAPY PACK [id number] METHYLPREDNISOLONE Inactive AMOXICILLIN 500 MG ORAL CAPSULE 1 tab by mouth 3 times daily x 10 days AMOXICILLIN 500 MG ORAL CAPSULE 163090 AMOXICILL IN Inactive AMOXICILLIN 500 MG ORAL CAPSULE 1 tab by mouth 3 times daily x 10 days AMOXICILLIN 500 MG ORAL CAPSULE [id number] AMOXICILL IN Inactive ZITHROMAX 250 MG ORAL TABLET 2 po today, then 1 po q days 2-5 20 12/08/14 ZITHROMAX 250 MG ORAL TABLET [id number] AZITHROMYCIN Greer ctive AUGMENTIN 875-125 MG ORAL TABLET 1 po BID x 10 days 20 13/01/20 AUGMENTIN 875-125 MG ORAL TABLET AMOXICILLIN-POT CLAVULANATE Inactive ZITHROMAX Z-REYNA 250 MG ORAL TABLET 2 today, then 1 daily for 4 d ays ZITHROMAX Z-REYNA 250 MG ORAL TABLET 274236 AZITHROMYCIN Inactive ZITHROMAX 250 MG ORAL TABLET 2 po today, then 1 po q days 2-5 20 14/03/21 ZITHROMAX 250 MG ORAL TABLET 931162 AZITHROMYCIN Horse Shoe ctive ZITHROMAX Z-REYNA 250 MG ORAL TABLET 2 today, then 1 daily for 4 d ays ZITHROMAX Z-REYNA 250 MG ORAL TABLET 740522 AZITHROMYCIN Inactive CEFDINIR 300 MG ORAL CAPSULE 1 po BID x 10 days 06/21 CEFDINIR 300 MG ORAL CAPSULE 20020704 CEFDINIR Inactive ZITHROMAX 250 MG ORAL TABLET 2 po today, then 1 po q days 2-5 20 13/08/10 ZITHROMAX 250 MG ORAL TABLET 914406 AZITHROMYCIN Greer ctive LEVAQUIN 500 MG ORAL TABLET 1 tablet by mouth daily 13/09/24 LEVAQUIN 500 MG ORAL TABLET 19971102 LEVOFLOXACIN Inactive SINGULAIR 10 MG ORAL TABLET 1 po qday for allergies 14/01/12 SINGULAIR 10 MG ORAL TABLET 20010504 MONTELUKAST SODIUM Inactive AMOXICILLIN 500 MG ORAL CAPSULE 2 po BID x 10 days 201 09/29/08 AMOXICILLIN 500 MG ORAL CAPSULE 697064 AMOXICILLIN Inactive PREDNISONE 20 MG ORAL TABLET 2 tabs daily for 3 days, 1 tab daily for 3 days, 1/2 tab daily for 2 days PREDNISONE 20 MG ORAL T ABLET 468095 PREDNISONE Inactive ZITHROMAX Z-REYNA 250 MG ORAL TABLET 2 today, then 1 daily for 4 d ays ZITHROMAX Z-RENYA 250 MG ORAL TABLET 307351 AZITHROMYCIN Inactive PREDNISONE 20 MG ORAL TABLET 2 tabs daily for 3 days, 1 tab daily for 3 days, 1/2 tab daily for 2 days PREDNISONE 20 MG ORAL T ABLET 490852 PREDNISONE Inactive ZITHROMAX 250 MG ORAL TABLET 2 po today, then 1 po q days 2-5 20 14/09/04 ZITHROMAX 250 MG ORAL TABLET 978236 AZITHROMYCIN Horse Shoe ctive AMOXICILLIN 500 MG ORAL CAPSULE 1 cap by mouth three times a day AMOXICILLIN 500 MG ORAL CAPSULE 469799 AMOXICILLIN Inactive TERBINAFINE HCL 250 MG ORAL TABLET 1 qDay for nail fungus 7 TERBINAFINE HCL 250 MG ORAL TABLET 434035 TERBINAFINE HCL Inact nael AUGMENTIN 875-125 MG ORAL TABLET 1 po BID x 10 days 20 16/03/22 AUGMENTIN 875-125 MG ORAL TABLET AMOXICILLIN-POT CLAVULANATE Inactive PREDNISONE 20 MG ORAL TABLET 2 po qd x 5 days PREDNISONE 20 MG ORAL TABLET 499976 PREDNISONE Inactive AZITHROMYCIN 250 MG ORAL TABLET 2 po qd x 1 day, then 1 po q d x 4 days AZITHROMYCIN 250 MG ORAL TABLET 033146 AZITHROMY GIOVANNI Inactive PREDNISONE 50 MG ORAL TABLET Take 50 mg dialy for 6 day s 7 PREDNISONE 50 MG ORAL TABLET 154328 PREDNISONE Inactive AUGMENTIN 875-125 MG ORAL TABLET 1 po BID x 10 days 18/04/16 AUGMENTIN 875-125 MG ORAL TABLET AMOXICILLIN-POT CLAVULANATE Inactive DOXYCYCLINE HYCLATE 100 MG ORAL CAPSULE 1 cap by mouth twice latasha ly DOXYCYCLINE HYCLATE 100 MG ORAL CAPSULE 4769552 DOXYCYCL INE HYCLATE Inactive PREDNISONE 20 MG ORAL TABLET Take 2 tabs day 1 and 2 and 1 t ab days 3 and 4 PREDNISONE 20 MG ORAL TABLET 025979 PREDNISONE Inactive Vital Signs Date Name Value [...] - Chem istry sodium, serum 139 mmol/L 690-286 8581/10/12 potassium, serum 3.8 mmol/L 3.5-5.2 chloride, serum [...] negative Encounters Code Encounter Date Provider Facility CPT-52286 Level 3 Est. Patient 16:08:07 CDT David lion [facility] CPT-83394 Level 3 Est. Patient 16:53:54 CDT May haas MD [facility] CPT-61727 [id number] Vst-Est Level IV 08:41:[address] Carlton Hu MD [facility] CPT-75653 Level 3 Est. Patient 09:46:49 CRANE RIGGER David lion [facility] CPT-60325 [id number] Vst-Est Level III 11:12:16 CDT Yanet Bess DO [facility] CPT-55546 Level 3 Est. Patient 11:34:49 CRANE RIGGER Perez Mora MD [facility] CPT-63590 Level 4 Est. Patient 09:51:32 CRANE RIGGER Carlton rich MD [facility] CPT-73216 Level 3 Est. Patient 10:26:00 CRANE RIGGER Elise stephenson [facility] CPT-92567 Level 3 Est. Patient 13:35:41 CRANE RIGGER Carlton rich MD [facility] CPT-16460 Level 3 Est. Patient 10:03:52 CRANE RIGGER Carlton rich MD [facility] CPT-71798 Level 3 Est. Patient 12:17:50 CDT Hugo Restrepo MD [facility] CPT-06297 Level 3 Est. Patient 13:42:38 CDT Elise stephenson [facility] CPT-18289 Level 3 Est. Patient 13:23:51 CDT Diya cobian [facility] CPT-98931 Level 3 Est. Patient 14:22:19 CRANE RIGGER Diya cobian [facility] CPT-50149 Level 3 Est. Patient 10:11:46 CDT Carlton rich MD [facility] CPT-62596 Level 3 Est. 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 Patient 11:58:06 CDT Elise Are ll [facility] CPT-89421 Level 4 Est. Patient 14:36:51 CDT Carlton rich MD [facility] CPT-63406 Level 3 Est. Patient 18:16:00 CRANE RIGGER Blaine Freeman [facility] CPT-39289 Level 3 Est. Patient 09:45:49 CRANE RIGGER Carlton rich MD [facility] CPT-66644 Level 3 Est. Patient 13:19:20 CDT Carlton rich MD [facility] CPT-04649 Level 3 Est. Patient 13:06:43 CDT Ridge tam DO [facility] CPT-20159 Level 3 Est. Patient 10:03:07 CDT Perez Mora MD [facility] CPT-76963 Level 3 Est. Patient 19:50:35 CRANE RIGGER Carlton rich MD [facility] CPT-95429 Level 4 Est. Patient 18:05:01 CRANE RIGGER Carlton rich MD [facility] CPT-21877 Level 3 Est. Patient 10:45:55 CRANE RIGGER Hugo Restrepo MD [facility] CPT-77679 Level 3 Est. Patient 14:12:49 CDT Griffin lincoln [facility] CPT-12308 Level 3 Est. Patient 17:37:24 CDT Carlton rich MD [facility] CPT-80590 Level 3 Est. Patient 16:51:54 CDT Carlton rich MD [facility] CPT-79565 Level 3 Est. Patient 12:18:11 CDT Hugo Restrepo MD [facility] CPT-65404 Level 3 Est. Patient 11:30:25 CDT Marcy crisostomo MD PhD [facility] CPT-54360 Level 3 Est. Patient 12:00:47 CRANE RIGGER Carlton rich MD [facility] CPT-61142 Level 3 Est. Patient 16:31:06 CRANE RIGGER Carlton rich MD [facility] CPT-98236 Level 3 Est. Patient 16:23:24 CRANE RIGGER Ridge tam [facility] CPT-24806 Level 3 Est. Patient 12:34:12 CDT Carlton rich MD [facility] CPT-34631 Level 2 Est. Patient 15:43:33 CDT Robi armstrong MD [facility] CPT-16060 Level 4 Est. Patient 14:04:44 CDT Carlton rich MD [facility] CPT-99553 Level 3 Est. Patient 05:47:59 CDT Ridge tam [facility] CPT-81886 Level 3 Est. Patient 13:12:53 CRANE RIGGER Carlton rich MD [facility] CPT-65254 Level 3 Est. Patient 14:26:53 CDT Hugo [...] CPT-J1100 Decadron 6mg (Dexamethasone) 14:32:13 CDT 2 CPT-56678 Hip bilat min 2V w AP pelvis 13:16:20 CDT 2 CPT-63427 Pelvis only 13:07:33 CDT CPT-97278 Spec Collection and Handling Fee 11:25:12 C DT CPT-50377 Fluzone Quadrivalent Intramuscular Suspe nsion 0.5 ML 14:31:55 CDT CPT-66451 Abx/Therapy Injection 13:28:47 CRANE RIGGER CPT-J2930 Solu Medrol 125 mg (Methyl Prednisolone Sodium Succinate) 12:00:47 CRANE RIGGER CPT-93162 Venipuncture Draw Fee 11:33:31 CDT CPT-50929 EKG Trac and Interp 11:21:09 CDT CPT-35867 Chest 2V Frontal and Lat 11:21:09 CDT 12/15 CPT-23188 Venipuncture Draw Fee 08:02:34 CDT CPT-68380 Chest 2V Frontal and Lat 05:47:59 CDT 06/05
--- OUTSIDE RECORDS SUMMARY | 2019-10-08 09:02 | XMS REPORT | Clinical Summary ---
Author Author Caitlin, Juliana Martinez Organization [facility] Address Unknown Phone Unavailable Allergies, [...] care facility MAMMOGRAM, ABNORMAL 793.80 Active Carlton lidna MD Abnormal mammogram, unspecified CHEST WALL PAIN, [...] Mass Index 35.0-35.9, adult BMI 34-34.9 Active May Vivar MD Body Mass Index 35.0-35.9, adult Upper respiratory [...] unspecified Obesity Class I (BMI 30-34.9) Active May Vivar MD Obesity, unspecified Hypertension, systolic 401.9 Active Carlton bustamante MD Unspecified essential hypertension Interstitial Cystitis 595.1 Active May lorenz MD Chronic interstitial cystitis BRONCHITIS ICD-490 Inactive Hugo Restrepo MD 201 [...] Patient Instruction ELMIRON 100 MG ORAL CAPSULE 2 capsules in the morning and 1 capsule at night PENTOSAN POLYSULFATE SODIUM 30498667002 Active Cinthia H art MEDICAL TRANSCRIPTION EDITOR Active CYMBALTA 30 MG ORAL CAPSULE DELAYED RELEASE PARTICLES 1 cap by mouth daily for depression DULOXETINE HCL 38552106577 No Longer Active Carlton Hu MD Active CYMBALTA 60 MG ORAL CAPSULE DELAYED RELEASE PARTICLES 1 cap by mouth daily for mood and pain DULOXETINE HCL 19828223510 Active Carlton Hu MD Active TUSSIONEX PENNKINETIC ER 10-8 MG/5ML ORAL SUSPENSION E XTENDED RELEASE 5ml po q12hr PRN Cough HYDROCOD POLST-CHLORPHEN POLST 62922851744 Active David Marianne SNACK FOODS MIXER 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 PREDNISONE 20 MG ORAL TABLET Take 2 tabs day 1 and 2 and 1 t ab days 3 and 4 PREDNISONE 11372283362 No Longer Active David Marianne SNACK FOODS MIXER 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 DOXYCYCLINE HYCLATE 100 MG ORAL CAPSULE 1 cap by mouth twice latasha ly DOXYCYCLINE HYCLATE 08741625147 No Longer Active David Marianne SNACK FOODS MIXER 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 TOPAMAX 100 MG ORAL TABLET Take 1 tablet po bid TOPIRAMATE 70888577930 No Longer Active David Marianne SNACK FOODS MIXER 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 TUSSIONEX PENNKINETIC ER 10-8 MG/5ML ORAL SUSPENSION E XTENDED RELEASE 5ml po q12hr PRN Cough HYDROCOD POLST-CHLORPHEN POLST 5 5431792365 No Longer Active David Marianne SNACK FOODS MIXER 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 AUGMENTIN 875-125 MG ORAL TABLET 1 po BID x 10 days 18/04/16 AMOXICILLIN-POT CLAVULANATE 97983332451 No Longer Active David Marianne SNACK FOODS MIXER 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 PREDNISONE 50 MG ORAL TABLET Take 50 mg dialy for 6 day s 7 PREDNISONE 09724298626 No Longer Active David Marianne SNACK FOODS MIXER 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 TUSSIONEX PENNKINETIC ER 10-8 MG/5ML ORAL SUSPENSION E XTENDED RELEASE 5ml po q12hr PRN Cough HYDROCOD POLST-CHLORPHEN POLST 5 1255383774 No Longer Active Cherelle Torres RN Active PREDNISONE 20 MG ORAL TABLET two tabs by mouth today, then one tab by mouth days two and three and four PREDNISONE 36136760648 No Lo nger Active Cherelle Torres RN Active AZITHROMYCIN 250 MG ORAL TABLET 2 po qd x 1 day, then 1 po q d x 4 days AZITHROMYCIN 92393770124 No Longer Active Ridge Bess DO Active PREDNISONE 20 MG ORAL TABLET 2 po qd x 5 days P REDNISONE 73207903702 No Longer Active Perez Mora MD Active PROAIR HFA 108 (90 BASE) MCG/ACT INHALATION AEROSOL SO LUTION 2 puffs four times a day as needed ALBUTEROL SULFATE 85103312717 No Long er Active Becky Cuellar RMA Active ASPIRIN 81 MG ORAL TABLET 1 po qd ASPIRIN 56298798941 Active Carlton Hu MD Active PREDNISONE 20 MG ORAL TABLET 1 tab twice daily for 3 d ay, then one daily for three days PREDNISONE 96762891910 No Longer Active Carlton Hu MD Active AUGMENTIN 875-125 MG ORAL TABLET 1 po BID x 10 days 16/03/22 AMOXICILLIN-POT CLAVULANATE 87995015266 No Longer Active Elise Garcia APRN Active TERBINAFINE HCL 250 MG ORAL TABLET 1 qDay for nail fungus 7 TERBINAFINE HCL 63521553254 No Longer Active Carlton Hu MD A ctive AMOXICILLIN 500 MG ORAL CAPSULE 1 cap by mouth three times a day AMOXICILLIN 83964190245 No Longer Active Carlton Hu MD Active ELMIRON 100 MG ORAL CAPSULE 2 tablets in the am and 1 tablet at hs PENTOSAN POLYSULFATE SODIUM 37916607337 No Longer Active Robert Hu MD Active MUCINEX D 60-600 MG ORAL TABLET EXTENDED RELEASE 12 HOUR 1 t ab po q am PSEUDOEPHEDRINE-GUAIFENESIN 07367007137 No Longer Act nael Carlton Hu MD Active MUCINEX DM MAXIMUM STRENGTH 60-1200 MG ORAL TABLET EXT ENDED RELEASE 12 HOUR 1 tab po q am DEXTROMETHORPHAN-GUAIFENESIN 03574362414 No Longer Active Carlton uH MD Active TUSSIONEX PENNKINETIC ER 10-8 MG/5ML ORAL SUSPENSION E XTENDED RELEASE 5ml po q12hr PRN Cough HYDROCOD POLST-CHLORPHEN POLST 5 7838660906 No Longer Active Carlton Hu MD Active POTASSIUM CHLORIDE ER 20 MEQ ORAL TABLET EXTENDED RELE ASE Take 1 by mouth 4 times daily for 7 days POTASSIUM CHLORIDE 69876447008 No Longer Active Carlton Hu MD Active ZITHROMAX 250 MG ORAL TABLET 2 po today, then 1 po q days 2-5 20 14/09/04 AZITHROMYCIN 60063792942 No Longer Active Elise Garcia APRN Active TUSSIONEX PENNKINETIC ER 10-8 MG/5ML ORAL SUSPENSION E XTENDED RELEASE 5 ml twice a day as needed for cough HYDROCOD POLST-CHLORPH EN POLST 86450455796 No Longer Active Elise Garcia APRN Active MONTELUKAST SODIUM 10 MG ORAL TABLET 1 po daily for Allergy MONTELUKAST SODIUM 76447750876 Active Carlton Hu MD Ac tive TUSSIONEX PENNKINETIC ER 10-8 MG/5ML ORAL SUSPENSION E XTENDED RELEASE 5ml po q12hr PRN Cough HYDROCOD POLST-CHLORPHEN POLST 5 4903283961 No Longer Active Hugo Restrepo MD Active GABAPENTIN 100 MG ORAL CAPSULE 1 po BID for fibromyalgia GABAPENTIN 48255632081 Active ALFREDO Holly Active LYRICA 100 MG ORAL CAPSULE Take 1 tab po BID for fibromyalgia 20 11/08/21 PREGABALIN 60519319919 No Longer Active Elise Garcia APRN A ctive PREDNISONE 20 MG ORAL TABLET 2 tabs daily for 3 days, 1 tab daily for 3 days, 1/2 tab daily for 2 days PREDNISONE 07528023857 No Longer Active Diya De Guzman APRN Active TUSSIONEX PENNKINETIC ER 10-8 MG/5ML ORAL SUSPENSION E XTENDED RELEASE 5 mL PO q 12 hrs PRN cough HYDROCOD POLST-CHLORPHEN POLST 579173 89532 No Longer Active Jiriley De Guzman APRN Active FLUTICASONE PROPIONATE 50 MCG/ACT NASAL SUSPENSION 2 s prays each nostril daily until bottle is empty FLUTICASONE PROPIONATE 255012590 99 No Longer Active Diya De Guzman APRN Active ASMANEX 60 METERED DOSES 220 MCG/INH INHALATION AEROSO L POWDER BREATH ACTIVATED 1 puff bid with rinse after MOMETASONE FUROATE 6597898 4102 No Longer Active Diya De Guzman APRN Active ZITHROMAX Z-REYNA 250 MG ORAL TABLET 2 today, then 1 daily for 4 d ays AZITHROMYCIN 41952598319 No Longer Active Elise Garcia APRN Active TUSSIONEX PENNKINETIC ER 10-8 MG/5ML ORAL SUSPENSION E XTENDED RELEASE 5ml po q12hr PRN Cough HYDROCOD POLST-CHLORPHEN POLST 5 3887127808 No Longer Active Elise Garcia APRN Active PREDNISONE 20 MG ORAL TABLET 2 tabs daily for 3 days, 1 tab daily for 3 days, 1/2 tab daily for 2 days PREDNISONE 81190379965 No Longer Active Diya De Guzman APRN Active AMOXICILLIN 500 MG ORAL CAPSULE 2 po BID x 10 days 201 09/29/08 AMOXICILLIN 01411930915 No Longer Active Diya De Guzman APRN Act nael SINGULAIR 10 MG ORAL TABLET 1 po qday for allergies 20 14/01/12 MONTELUKAST SODIUM 13147610023 No Longer Active Carlton Hu MD Active LEVAQUIN 500 MG ORAL TABLET 1 tablet by mouth daily 20 13/09/24 LEVOFLOXACIN 97878727426 No Longer Active Carlton Hu MD Acti ve FLUTICASONE PROPIONATE 50 MCG/ACT NASAL SUSPENSION 2 s prays each nostril daily for 2 weeks, then 1 spray each nostril daily. FLUTICASONE PROPIONATE 06491782443 Active Carlton Hu MD Active ZITHROMAX 250 MG ORAL TABLET 2 po today, then 1 po q days 2-5 20 13/08/10 AZITHROMYCIN 92654176230 No Longer Active Elise Garcia APRN Active XANAX 0.5 MG ORAL TABLET one tablet by mouth daily prn anxiety 2015 ALPRAZOLAM 88784161668 Active ALFREDO Holly Active CEFDINIR 300 MG ORAL CAPSULE 1 po BID x 10 days CEFDINIR 55796268965 No Longer Active Carlton Hu MD Active ZOCOR 40 MG ORAL TABLET 1 tab by mouth daily SI MVASTATIN 31273822275 No Longer Active Carlton Hu MD Active CYCLOBENZAPRINE HCL 10 MG ORAL TABLET 1 tablet by mouth BID prn had pain CYCLOBENZAPRINE HCL 94157412623 No Longer Active Jayden Hu MD Active LEVOFLOXACIN 500 MG ORAL TABLET 1 tab PO daily x 10 days LEVOFLOXACIN 39357898743 No Longer Active Carlton Hu MD Acti ve PREDNISONE 20 MG ORAL TABLET 3 tab PO qd x 2d, 2 tab P O qd x 2d, 1 tab PO qd x 2d, 1/2 tab PO qd x 2d PREDNISONE 09901700831 No Lo nger Active Carlton Hu MD Active FLUTICASONE PROPIONATE 50 MCG/ACT NASAL SUSPENSION 1 t o 2 sprays each nostril daily FLUTICASONE PROPIONATE 88361152605 No Longer Ac tive Blaine HERNANDEZ Active CHERATUSSIN AC 100-10 MG/5ML ORAL SYRUP 1 tsp by mouth every 4 hours as needed for cough GUAIFENESIN-CODEINE 08820324115 No Longe r Active Blaine HERNANDEZ Active PROMETHAZINE-CODEINE 6.25-10 MG/5ML ORAL SYRUP 1 tsp b y mouth every 6 hours if needed for cough PROMETHAZINE-CODEINE 23302319468 No Longer Active Blaine HERNANDEZ Active CHERATUSSIN AC 100-10 MG/5ML ORAL SYRUP 1 tsp by mouth every 4 hours as needed for cough GUAIFENESIN-CODEINE 29143406843 No Longe r Active Blaine HERNANDEZ Active ZITHROMAX Z-REYNA 250 MG ORAL TABLET 2 today, then 1 daily for 4 d ays AZITHROMYCIN 68955279595 No Longer Active Columba Raida Act nael ZITHROMAX 250 MG ORAL TABLET 2 po today, then 1 po q days 2-5 20 14/03/21 AZITHROMYCIN 00849175616 No Longer Active Carlton Hu MD Active ZITHROMAX Z-REYNA 250 MG ORAL TABLET 2 today, then 1 daily for 4 d ays AZITHROMYCIN 24569773488 No Longer Active Columba Raida Act nael AUGMENTIN 875-125 MG ORAL TABLET 1 po BID x 10 days 13/01/20 AMOXICILLIN-POT CLAVULANATE 95397959625 No Longer Active Diya De Guzman APRN Active ZITHROMAX 250 MG ORAL TABLET 2 po today, then 1 po q days 2-5 20 12/08/14 AZITHROMYCIN 01218322251 No Longer Active Carlton Hu MD Active TRAMADOL HCL 50 MG ORAL TABLET 1 po tid with ES Tylenol TRAMADOL HCL 15967385934 Active Carlton Hu MD Active PREMARIN 0.625 MG ORAL TABLET TAKE 1 TAB BY MOUTH DAILY ESTROGENS CONJUGATED 76790831727 No Longer Active Ridge Bess DO A ctive CYMBALTA 30 MG ORAL CAPSULE DELAYED RELEASE PARTICLES 1 cap by mouth daily DULOXETINE HCL 36712053629 No Longer Active Ridge tam DO Active AMOXICILLIN 500 MG ORAL CAPSULE 1 tab by mouth 3 times daily x 10 days AMOXICILLIN 80032291538 No Longer Active Carlton bustamante MD Active AMOXICILLIN 500 MG ORAL CAPSULE 1 tab by mouth 3 times daily x 10 days AMOXICILLIN 19033720689 No Longer Active Carlton bustamante MD Active PROMETHAZINE-CODEINE 6.25-10 MG/5ML ORAL SYRUP 1 tsp b y mouth every 8 hours prn cough PROMETHAZINE-CODEINE 41071076918 No Longer Acti ve Carlton Hu MD Active MEDROL 4 MG ORAL TABLET THERAPY PACK 6 pills x 1 day, then 5 pills x 1 day then 4 pills x 1 day, then 3 pills x 1 day, then 2 pills x 1 day, then 1 pill x 1 day, then stop METHYLPREDNISOLONE 29386965085 No Long er Active Perez Mora MD Active AZITHROMYCIN 250 MG ORAL TABLET 2 po qd x 1 day, then 1 po q d x 4 days AZITHROMYCIN 39810618047 No Longer Active Perez Ambriz MD Active SYMBICORT 160-4.5 MCG/ACT INHALATION AEROSOL 2 puffs bid wit h rinse after BUDESONIDE-FORMOTEROL FUMARATE 01219615270 N o Longer Active Perez Mora MD Active LYRICA 75 MG ORAL CAPSULE TAKE 1 CAPSULE BY MOUTH TWICE DAILY PREGABALIN 83381951933 No Longer Active Carlton Hu MD Acti ve TOPAMAX 25 MG ORAL TABLET 1 qHS x 1 week, then 1 BID x 1 week, then 1 qAM and 2 qHS x 1 week, then 2 BID (migraine prevention) T OPIRAMATE 18013799041 No Longer Active Jerica FUENTES Active TOPAMAX 50 MG ORAL TABLET take 1 tab po BID for migraines. 07/02 TOPIRAMATE 39188764848 No Longer Active Jerica FUENTES Active TRIAMCINOLONE ACETONIDE 0.1 % EXTERNAL CREAM apply three roger es daily prn rash TRIAMCINOLONE ACETONIDE 86273549626 No Longer Active Carlton Hu MD Active PAXIL 40 MG ORAL TABLET take 1 tab po qday for depression 0 PAROXETINE HCL 50960498864 Active Carlton Hu MD Active CHERATUSSIN AC 100-10 MG/5ML ORAL SYRUP 5ml po q6hr PRN Cough 20 13/04/14 GUAIFENESIN-CODEINE 58928853672 No Longer Active Carlton Hu MD Active MEDROL 4 MG ORAL TABLET THERAPY PACK 6 tabs on day 1, 5 tabs on day 2, 4 tabs on day 3, 3 tabs on day 4, 2 tabs on day 5, 1 tab on day 6 2013 METHYLPREDNISOLONE 27814788060 No Longer Active Perez Mora MD Active AZITHROMYCIN 250 MG ORAL TABLET 2 po qd x 1 day, then 1 po q d x 4 days AZITHROMYCIN 26472548936 No Longer Active Perez Ambriz MD Active PROPRANOLOL HCL 60 MG ORAL TABLET 1 PO Q D PROPRANOLOL HCL 22062596256 No Longer Active Perez Mora MD Activ e CHERATUSSIN AC 100-10 MG/5ML ORAL SYRUP take one tsp po Q 6h ours prn cough GUAIFENESIN-CODEINE 33087954113 No Longer Active Zia Mora MD Active AUGMENTIN 875-125 MG ORAL TABLET 1 tab by mouth twice daily with food AMOXICILLIN-POT CLAVULANATE 99588148205 No Longer Act nael Perez Mora MD Active CHERATUSSIN AC 100-10 MG/5ML ORAL SYRUP 1 tsp by mouth every 4 hours as needed for cough GUAIFENESIN-CODEINE 76460355099 No Longe r Active Hugo Restrepo MD Active ACETAMINOPHEN-CODEINE #3 300-30 MG ORAL TABLET 1 PO Q 4-6 HRS MI N PAIN ACETAMINOPHEN-CODEINE 08127401904 No Longer Active Hugo Restrepo MD Active LEVAQUIN 500 MG ORAL TABLET take one po QD LEVO FLOXACIN 97537923836 No Longer Active Griffin HERNANDEZ Active PREDNISONE 20 MG ORAL TABLET Take 3 tabs daily for 3 d ays, 2 tabs daily for 3 days, 1 tab daily for 3 days, 1/2 tab daily for 3 days 11/07 PREDNISONE 37066668280 No Longer Active Carlton Hu MD Acti ve AVELOX 400 MG ORAL TABLET 1 tab by mouth daily MOXIFLOXACIN HCL 85329956771 No Longer Active Carlton Hu MD Active CHERATUSSIN AC 100-10 MG/5ML ORAL SYRUP 1 tsp by mouth every 4 hours as needed for cough GUAIFENESIN-CODEINE 60508395738 No Longe r Active Hugo Restrepo MD Active AVELOX 400 MG ORAL TABLET 1 tab by mouth daily MOXIFLOXACIN HCL 91481259306 No Longer Active Marcy De La Rosa MD PhD Active TERBINAFINE HCL 250 MG ORAL TABLET 1 qDay T ERBINAFINE HCL 24288885803 No Longer Active Marcy De La Rosa MD PhD Active CHERATUSSIN AC 100-10 MG/5ML ORAL SYRUP 1 tsp by mouth every 4 hours as needed for cough GUAIFENESIN-CODEINE 48721786457 No Longe r Active Marcy De La Rosa MD PhD Active AVELOX 400 MG ORAL TABLET 1 tab by mouth daily MOXIFLOXACIN HCL 57298632050 No Longer Active Marcy De La Rosa MD PhD Active HYDROCODONE-ACETAMINOPHEN 5-325 MG ORAL TABLET 1 po q 6hr PRN co ugh HYDROCODONE-ACETAMINOPHEN 58363965751 No Longer Active Marcy De La Rosa MD PhD Active PREDNISONE 20 MG ORAL TABLET 2 tabs daily for 3 days, 1 tab daily for 3 days, 1/2 tab daily for 2 days PREDNISONE 11507328722 No Longer Active Carlton Hu MD Active CEFDINIR 300 MG ORAL CAPSULE by mouth twice a day 2011 CEFDINIR 28280234780 No Longer Active Carlton Hu MD Acti ve HYDROCHLOROTHIAZIDE 25 MG ORAL TABLET 1 TAB PO DAILY HYDROCHLOROTHIAZIDE 60308009503 Active Carlton Hu MD A ctive ACETAMINOPHEN-CODEINE #3 300-30 MG ORAL TABLET 1 tablet po q 4-6 hrs prn pain ACETAMINOPHEN-CODEINE 91322478052 No Longer Active Ridge Bess DO Active ZITHROMAX 250 MG ORAL TABLET 2 po today, then 1 po q days 2-5 20 03/07/07 AZITHROMYCIN 07105816548 No Longer Active Carlton Hu MD Active CHERATUSSIN AC 100-10 MG/5ML ORAL SYRUP take 1 tsp po q4-6 h ours prn cough GUAIFENESIN-CODEINE 90239876129 No Longer Active Jayden Hu MD Active ACETAMINOPHEN-CODEINE #3 300-30 MG ORAL TABLET 1 PO Q 4-6 HR PRN PAIN ACETAMINOPHEN-CODEINE 01992985320 No Longer Active Da raimundo Hu MD Active LORTAB 7.5-500 MG/15ML ORAL ELIXIR 7.5 ml po q 4 hour prn cough HYDROCODONE-ACETAMINOPHEN 46460754977 No Longer Active Carlton Hu MD Active PREDNISONE 20 MG ORAL TABLET 1 po bid 3 days, then 1 po q day 3 days PREDNISONE 86744165508 No Longer Active Carlton Hu MD Active CEFDINIR 300 MG ORAL CAPSULE by mouth twice a day 2011 CEFDINIR 61057577319 No Longer Active Carlton Hu MD Acti ve CEFDINIR 300 MG ORAL CAPSULE by mouth twice a day 2010 CEFDINIR 93483432847 No Longer Active Carlton Hu MD Acti ve CEFDINIR 300 MG ORAL CAPSULE by mouth twice a day 2010 CEFDINIR 88034635984 No Longer Active Carlton Hu MD Acti ve TESSALON PERLES 100 MG ORAL CAPSULE 1 tablet by mouth 3 times daily as needed for cough BENZONATATE 09328024114 No Longer Active Carlton Hu MD Active CEFDINIR 300 MG ORAL CAPSULE by mouth twice a day 2010 CEFDINIR 73026954189 No Longer Active Carlton Hu MD Acti ve ZITHROMAX Z-REYNA 250 MG ORAL TABLET 2 today, then 1 daily for 4 d ays AZITHROMYCIN 44480922338 No Longer Active Hugo Restrepo MD Active TESSALON PERLES 100 MG ORAL CAPSULE 1 tablet by mouth 3 times daily as needed for cough ROLFSALBARRON PERLES 100 MG ORAL CAPSULE 27428 7 BENZONATATE Inactive PREDNISONE 20 MG ORAL TABLET 1 po bid 3 days, then 1 po q day 3 days PREDNISONE 20 MG ORAL TABLET 434910 PREDNISONE Greer ctive LORTAB 7.5-500 MG/15ML ORAL [...] cough CHERATUSSIN AC 100-10 MG/5ML ORAL SYRUP 789744 GUAIFENESIN-CODEINE Inactive ACETAMINOPHEN-CODEINE #3 300-30 MG ORAL TABLET 1 tablet po q 4-6 hrs prn pain ACETAMINOPHEN-CODEINE #3 300-30 MG ORAL TABLET ACETAMINOPHEN-CODEINE Inactive HYDROCODONE-ACETAMINOPHEN 5-325 MG ORAL TABLET 1 po q 6hr PRN co ugh HYDROCODONE-ACETAMINOPHEN 5-325 MG ORAL TABLET 813860 HYDROCODONE-ACETAMINOPHEN Inactive AVELOX 400 MG ORAL TABLET 1 tab by mouth daily AVELOX 400 MG ORAL TABLET 428871 MOXIFLOXACIN HCL Inactive CHERATUSSIN AC 100-10 MG/5ML ORAL SYRUP 1 tsp by mouth every 4 hours as needed for cough CHERATUSSIN AC 100-10 MG/5ML ORAL SYRUP 9 94411 GUAIFENESIN-CODEINE Inactive TERBINAFINE HCL 250 MG ORAL TABLET 1 qDay 07/08 TERBINAFINE HCL 250 MG ORAL TABLET 073846 TERBINAFINE HCL Inactive CHERATUSSIN AC 100-10 MG/5ML ORAL SYRUP 1 tsp by mouth every 4 hours as needed for cough CHERATUSSIN AC 100-10 MG/5ML ORAL SYRUP 9 67663 GUAIFENESIN-CODEINE Inactive ACETAMINOPHEN-CODEINE #3 300-30 MG ORAL TABLET 1 PO Q 4-6 HRS MI N PAIN ACETAMINOPHEN-CODEINE #3 300-30 MG ORAL TABLET ACETAMINOPHEN-CODEINE Inactive CHERATUSSIN AC 100-10 MG/5ML ORAL SYRUP 1 tsp by mouth every 4 hours as needed for cough CHERATUSSIN AC 100-10 MG/5ML ORAL SYRUP 9 97811 GUAIFENESIN-CODEINE Inactive AUGMENTIN 875-125 MG ORAL TABLET 1 tab by mouth twice daily with food AUGMENTIN 875-125 MG ORAL TABLET AMOXICIL MADELINE-POT CLAVULANATE Inactive CHERATUSSIN AC 100-10 MG/5ML ORAL SYRUP take one tsp po Q 6h ours prn cough CHERATUSSIN AC 100-10 MG/5ML ORAL SYRUP 491014 GUAIFENESIN-CODEINE Inactive PROPRANOLOL HCL 60 MG ORAL TABLET 1 PO Q D PROPRANOLOL HCL 60 MG ORAL TABLET 240877 PROPRANOLOL HCL Inactive TOPAMAX 50 MG ORAL TABLET take 1 tab po BID for migraines. 07/02 TOPAMAX 50 MG ORAL TABLET 932491 TOPIRAMATE Inacti ve TOPAMAX 25 MG ORAL TABLET 1 qHS x 1 week, then 1 BID x 1 week, then 1 qAM and 2 qHS x 1 week, then 2 BID (migraine prevention) TOPAMAX 25 MG ORAL TABLET 562357 TOPIRAMATE Inactive LYRICA 75 MG ORAL CAPSULE TAKE 1 CAPSULE BY MOUTH TWICE DAILY LYRICA 75 MG ORAL CAPSULE PREGABALIN Inactive SYMBICORT 160-4.5 MCG/ACT INHALATION AEROSOL 2 puffs bid wit h rinse after SYMBICORT 160-4.5 MCG/ACT INHALATION AEROSOL BUDESONIDE- FORMOTEROL FUMARATE Inactive PROMETHAZINE-CODEINE 6.25-10 MG/5ML ORAL SYRUP 1 tsp b y mouth every 8 hours prn cough PROMETHAZINE-CODEINE 6.25-10 MG/ 5ML ORAL SYRUP 145017 PROMETHAZINE-CODEINE Inactive CYMBALTA 30 MG ORAL CAPSULE DELAYED RELEASE PARTICLES 1 cap by mouth daily CYMBALTA 30 MG ORAL CAPSULE DELAYED RELE ASE PARTICLES 425526 DULOXETINE HCL Inactive PREMARIN 0.625 MG ORAL TABLET TAKE 1 TAB BY MOUTH DAILY PREMARIN 0.625 MG ORAL TABLET ESTROGENS CONJUGATED Inactive CHERATUSSIN AC 100-10 MG/5ML ORAL SYRUP 1 tsp by mouth every 4 hours as needed for cough CHERATUSSIN AC 100-10 MG/5ML ORAL SYRUP 9 35501 GUAIFENESIN-CODEINE Inactive PROMETHAZINE-CODEINE 6.25-10 MG/5ML ORAL SYRUP 1 tsp b y mouth every 6 hours if needed for cough PROMETHAZINE-CODEINE 6.25-10 MG/5ML ORAL SYRUP 826397 PROMETHAZINE-CODEINE Inactive CHERATUSSIN AC 100-10 MG/5ML ORAL SYRUP 1 tsp by mouth every 4 hours as needed for cough CHERATUSSIN AC 100-10 MG/5ML ORAL SYRUP 9 86325 GUAIFENESIN-CODEINE Inactive FLUTICASONE PROPIONATE 50 MCG/ACT NASAL SUSPENSION 1 t o 2 sprays each nostril daily FLUTICASONE PROPIONATE 50 MCG/AC T NASAL SUSPENSION 0671418 FLUTICASONE PROPIONATE Inactive PREDNISONE 20 MG ORAL TABLET 3 tab PO qd x 2d, 2 tab P O qd x 2d, 1 tab PO qd x 2d, 1/2 tab PO qd x 2d PREDNISONE 20 MG ORAL TAB LET 512616 PREDNISONE Inactive LEVOFLOXACIN 500 MG ORAL TABLET 1 tab PO daily x 10 days LEVOFLOXACIN 500 MG ORAL TABLET 610649 LEVOFLOXACIN Inactive CYCLOBENZAPRINE HCL 10 MG ORAL TABLET 1 tablet by mouth BID prn had pain CYCLOBENZAPRINE HCL 10 MG ORAL TABLET 209891 CYCLOBENZAPRINE HCL Inactive ZOCOR 40 MG ORAL TABLET 1 tab by mouth daily 4 ZOCOR 40 MG ORAL TABLET 19810331 SIMVASTATIN Inactive TUSSIONEX PENNKINETIC ER 10-8 MG/5ML [...] FLUTICASONE PROPIO EFE 50 MCG/ACT NASAL SUSPENSION 7075015 FLUTICASONE PROPIONATE Inactive TUSSIONEX PENNKINETIC ER 10-8 [...] three days PREDNISONE 20 MG ORAL TABLET 470025 PREDNIS ONE Inactive PROAIR HFA 108 (90 BASE) MCG/ACT INHALATION AEROSOL SO LUTION 2 puffs four times a day as needed PROAIR HFA 108 (90 B ASE) MCG/ACT INHALATION AEROSOL SOLUTION ALBUTEROL SULFATE Inactive PREDNISONE 20 MG ORAL TABLET two tabs by mouth today, then one tab by mouth days two and three and four PREDNISONE 20 MG ORAL TAB LET 350495 PREDNISONE Inactive TUSSIONEX PENNKINETIC ER 10-8 MG/5ML ORAL SUSPENSION E XTENDED RELEASE 5ml po q12hr PRN Cough TUSSIONEX PENNKINETI C ER 10-8 MG/5ML ORAL SUSPENSION EXTENDED RELEASE HYDROCOD POLST-CHLORPHEN POLST I nactive TUSSIONEX PENNKINETIC ER 10-8 MG/5ML ORAL SUSPENSION E XTENDED RELEASE 5ml po q12hr PRN Cough TUSSWALIX LAWSON C ER 10-8 MG/5ML ORAL SUSPENSION EXTENDED RELEASE HYDROCOD POLST-CHLORPHEN POLST I nactive TOPAMAX 100 MG ORAL TABLET Take 1 tablet po bid 04/20 TOPAMAX 100 MG ORAL TABLET 512626 TOPIRAMATE Inactive CYMBALTA 30 MG ORAL CAPSULE DELAYED RELEASE PARTICLES 1 cap by mouth daily for depression CYMBALTA 30 MG ORAL CAPSULE DELAYED RELEASE PARTICLES 677125 DULOXETINE HCL Inactive ZITHROMAX Z-REYNA 250 MG ORAL TABLET 2 today, then 1 daily for 4 d ays ZITHROMAX Z-REYNA 250 MG ORAL TABLET 975631 AZITHROMYCIN Inactive CEFDINIR 300 MG ORAL CAPSULE by mouth twice a day 2010 CEFDINIR 300 MG ORAL CAPSULE 730459 CEFDINIR Inactive CEFDINIR 300 MG ORAL CAPSULE by mouth twice a day 2010 CEFDINIR 300 MG ORAL CAPSULE 783438 CEFDINIR Inactive CEFDINIR 300 MG ORAL CAPSULE by mouth twice a day 2010 CEFDINIR 300 MG ORAL CAPSULE 260800 CEFDINIR Inactive CEFDINIR 300 MG ORAL CAPSULE by mouth twice a day 2011 CEFDINIR 300 MG ORAL CAPSULE 214071 CEFDINIR Inactive ZITHROMAX 250 MG ORAL TABLET 2 po today, then 1 po q days 2-5 20 03/07/07 ZITHROMAX 250 MG ORAL TABLET 395831 AZITHROMYCIN Belle ctive CEFDINIR 300 MG ORAL CAPSULE by mouth twice a day 2011 CEFDINIR 300 MG ORAL CAPSULE 201065 CEFDINIR Inactive PREDNISONE 20 MG ORAL TABLET 2 tabs daily for 3 days, 1 tab daily for 3 days, 1/2 tab daily for 2 days PREDNISONE 20 MG ORAL T ABLET 882987 PREDNISONE Inactive AVELOX 400 MG ORAL TABLET 1 tab by mouth daily AVELOX 400 MG ORAL TABLET 848201 MOXIFLOXACIN HCL Inactive AVELOX 400 MG ORAL TABLET 1 tab by mouth daily AVELOX 400 MG ORAL TABLET 178096 MOXIFLOXACIN HCL Inactive PREDNISONE 20 MG ORAL TABLET Take 3 tabs daily for 3 d ays, 2 tabs daily for 3 days, 1 tab daily for 3 days, 1/2 tab daily for 3 days 11/07 PREDNISONE 20 MG ORAL TABLET 130305 PREDNISONE Inactive LEVAQUIN 500 MG ORAL TABLET take one po QD LEVAQUIN 500 MG ORAL TABLET 426178 LEVOFLOXACIN Inactive AZITHROMYCIN 250 MG ORAL TABLET 2 po qd x 1 day, then 1 po q d x 4 days AZITHROMYCIN 250 MG ORAL TABLET [id number] AZITHROMY GIOVANNI Inactive MEDROL 4 MG ORAL TABLET THERAPY PACK 6 tabs on day 1, 5 tabs on day 2, 4 tabs on day 3, 3 tabs on day 4, 2 tabs on day 5, 1 tab on day 6 2013 MEDROL 4 MG ORAL TABLET THERAPY PACK [id number] METHYLPREDNISOLONE [place] ctive CHERATUSSIN AC 100-10 MG/5ML ORAL SYRUP 5ml po q6hr PRN Cough 20 13/04/14 CHERATUSSIN AC 100-10 MG/5ML ORAL SYRUP 606945 GUAIFENE SIN-CODEINE Inactive TRIAMCINOLONE ACETONIDE 0.1 % EXTERNAL CREAM apply three roger es daily prn rash TRIAMCINOLONE ACETONIDE 0.1 % EXTERNAL CREAM 101 4314 TRIAMCINOLONE ACETONIDE Inactive AZITHROMYCIN 250 MG ORAL TABLET 2 po qd x 1 day, then 1 po q d x 4 days AZITHROMYCIN 250 MG ORAL TABLET [id number] AZITHROMY GIOVANNI Inactive MEDROL 4 MG ORAL TABLET THERAPY PACK 6 pills x 1 day, then 5 pills x 1 day then 4 pills x 1 day, then 3 pills x 1 day, then 2 pills x 1 day, then 1 pill x 1 day, then stop MEDROL 4 MG ORAL TABLET THERAPY PACK 603903 METHYLPREDNISOLONE Inactive AMOXICILLIN 500 MG ORAL CAPSULE 1 tab by mouth 3 times daily x 10 days AMOXICILLIN 500 MG ORAL CAPSULE 902376 AMOXICILL IN Inactive AMOXICILLIN 500 MG ORAL CAPSULE 1 tab by mouth 3 times daily x 10 days AMOXICILLIN 500 MG ORAL CAPSULE 963436 AMOXICILL IN Inactive ZITHROMAX 250 MG ORAL TABLET 2 po today, then 1 po q days 2-5 20 12/08/14 ZITHROMAX 250 MG ORAL TABLET 593131 AZITHROMYCIN [facility] AUGMENTIN 875-125 MG ORAL TABLET 1 po BID x 10 days 20 13/01/20 AUGMENTIN 875-125 MG ORAL TABLET AMOXICILLIN-POT CLAVULANATE Inactive ZITHROMAX Z-REYNA 250 MG ORAL TABLET 2 today, then 1 daily for 4 d ays ZITHROMAX Z-REYNA 250 MG ORAL TABLET 513733 AZITHROMYCIN Inactive ZITHROMAX 250 MG ORAL TABLET 2 po today, then 1 po q days 2-5 20 14/03/21 ZITHROMAX 250 MG ORAL TABLET 454204 AZITHROMYCIN [facility] ZITHROMAX Z-REYNA 250 MG ORAL TABLET 2 today, then 1 daily for 4 d ays ZITHROMAX Z-REYNA 250 MG ORAL TABLET 842986 AZITHROMYCIN Inactive CEFDINIR 300 MG ORAL CAPSULE 1 po BID x 10 days 06/21 CEFDINIR 300 MG ORAL CAPSULE 043961 CEFDINIR Inactive ZITHROMAX 250 MG ORAL TABLET 2 po today, then 1 po q days 2-5 20 13/08/10 ZITHROMAX 250 MG ORAL TABLET 652360 AZITHROMYCIN [facility] LEVAQUIN 500 MG ORAL TABLET 1 tablet by mouth daily 20 13/09/24 LEVAQUIN 500 MG ORAL TABLET 19971102 LEVOFLOXACIN Inactive SINGULAIR 10 MG ORAL TABLET 1 po qday for allergies 20 14/01/12 SINGULAIR 10 MG ORAL TABLET 20010504 MONTELUKAST SODIUM Inactive AMOXICILLIN 500 MG ORAL CAPSULE 2 po BID x 10 days 201 09/29/08 AMOXICILLIN 500 MG ORAL CAPSULE 720543 AMOXICILLIN Inactive PREDNISONE 20 MG ORAL TABLET 2 tabs daily for 3 days, 1 tab daily for 3 days, 1/2 tab daily for 2 days PREDNISONE 20 MG ORAL T ABLET 115580 PREDNISONE Inactive ZITHROMAX Z-REYNA 250 MG ORAL TABLET 2 today, then 1 daily for 4 d ays ZITHROMAX Z-REYNA 250 MG ORAL TABLET 604982 AZITHROMYCIN Inactive PREDNISONE 20 MG ORAL TABLET 2 tabs daily for 3 days, 1 tab daily for 3 days, 1/2 tab daily for 2 days PREDNISONE 20 MG ORAL T ABLET 304479 PREDNISONE Inactive ZITHROMAX 250 MG ORAL TABLET 2 po today, then 1 po q days 2-5 20 14/09/04 ZITHROMAX 250 MG ORAL TABLET 882051 AZITHROMYCIN [facility] AMOXICILLIN 500 MG ORAL CAPSULE 1 cap by mouth three times a day AMOXICILLIN 500 MG ORAL CAPSULE 660960 AMOXICILLIN Inactive TERBINAFINE HCL 250 MG ORAL TABLET 1 qDay for nail fungus 7 TERBINAFINE HCL 250 MG ORAL TABLET 176550 TERBINAFINE HCL Inact nael AUGMENTIN 875-125 MG ORAL TABLET 1 po BID x 10 days 16/03/22 AUGMENTIN 875-125 MG ORAL TABLET AMOXICILLIN-POT CLAVULANATE Inactive PREDNISONE 20 MG ORAL TABLET 2 po qd x 5 days PREDNISONE 20 MG ORAL TABLET 339077 PREDNISONE Inactive AZITHROMYCIN 250 MG ORAL TABLET 2 po qd x 1 day, then 1 po q d x 4 days AZITHROMYCIN 250 MG ORAL TABLET 318486 AZITHROMY GIOVANNI Inactive PREDNISONE 50 MG ORAL TABLET Take 50 mg dialy for 6 day s 7 PREDNISONE 50 MG ORAL TABLET 114590 PREDNISONE Inactive AUGMENTIN 875-125 MG ORAL TABLET 1 po BID x 10 days 20 18/04/16 AUGMENTIN 875-125 MG ORAL TABLET AMOXICILLIN-POT CLAVULANATE Inactive DOXYCYCLINE HYCLATE 100 MG ORAL CAPSULE 1 cap by mouth twice latasha ly DOXYCYCLINE HYCLATE 100 MG ORAL CAPSULE 2225094 DOXYCYCL INE HYCLATE Inactive PREDNISONE 20 MG ORAL TABLET Take 2 tabs day 1 and 2 and 1 t ab days 3 and 4 PREDNISONE 20 MG ORAL TABLET 540509 PREDNISONE Inactive Vital Signs Date Name Value [...] - Chem istry sodium, serum 139 mmol/L 575-783 3658/10/12 potassium, serum 3.8 mmol/L 3.5-5.2 chloride, serum [...] negative Encounters Code Encounter Date Provider Facility CPT-39507 Level 3 Est. Patient 16:53:54 CDT May haas MD [facility]-62592 [id number] Vst-Est Level IV 08:41:[address] Carlton Hu MD [facility]-13828 Level 3 Est. Patient 09:46:49 WAITER/WAITRESS ROOM SERVICE David lion [facility]-07941 [id number] Vst-Est Level III 11:12:16 CDT Yanet Bess DO [facility]-78268 Level 3 Est. Patient 11:34:49 WAITER/WAITRESS ROOM SERVICE Perez Mora MD [facility]-63231 Level 4 Est. Patient 09:51:32 WAITER/WAITRESS ROOM SERVICE Carlton rich MD [facility]-12688 Level 3 Est. Patient 10:26:00 WAITER/WAITRESS ROOM SERVICE Elise stephenson [facility]-00510 Level 3 Est. Patient 13:35:41 WAITER/WAITRESS ROOM SERVICE Carlton rich MD [facility]-99531 Level 3 Est. Patient 10:03:52 WAITER/WAITRESS ROOM SERVICE Carlton rich MD [facility]-49680 Level 3 Est. Patient 12:17:50 CDT Hugo Restrepo MD [facility]-26848 Level 3 Est. Patient 13:42:38 CDT Elise Are [facility] CPT-93423 Level 3 Est. Patient 13:23:51 CDT Diya Mariana cobian [facility] CPT-30223 Level 3 Est. Patient 14:22:19 WAITER/WAITRESS ROOM SERVICE Venuriley Mariana cobian [facility] CPT-08729 Level 3 Est. Patient 10:11:46 CDT Carlton rich MD [facility] CPT-32696 Level 3 Est. Patient 17:29:43 CDT Elise Are [facility] CPT-15261 Level 3 Est. Patient 11:58:06 CDT Elise Are [facility] CPT-83026 Level 4 Est. Patient 14:36:51 CDT Carlton rich MD [facility] CPT-41574 Level 3 Est. Patient 18:16:00 WAITER/WAITRESS ROOM SERVICE Blaine HERNANDEZ [facility] CPT-04376 Level 3 Est. Patient 09:45:49 WAITER/WAITRESS ROOM SERVICE Carlton rich MD [facility] CPT-97211 Level 3 Est. Patient 13:19:20 CDT Carlton rich MD [facility] CPT-51134 Level 3 Est. Patient 13:06:43 CDT Ridge tam DO [facility] CPT-35437 Level 3 Est. Patient 10:03:07 CDT Perez Mora MD [facility] CPT-48320 Level 3 Est. Patient 19:50:35 WAITER/WAITRESS ROOM SERVICE Carlton rich MD [facility] CPT-26160 Level 4 Est. Patient 18:05:01 WAITER/WAITRESS ROOM SERVICE Carlton rich MD [facility] CPT-11254 Level 3 Est. Patient 10:45:55 WAITER/WAITRESS ROOM SERVICE Hugo Restrepo MD [facility] CPT-91158 Level 3 Est. Patient 14:12:49 CDT Griffin HERNANDEZ [facility] CPT-12334 Level 3 Est. Patient 17:37:24 CDT Carlton rich MD [facility] CPT-01187 Level 3 Est. Patient 16:51:54 CDT Carlton rich MD [facility] CPT-26667 Level 3 Est. Patient 12:18:11 CDT Hugo Restrepo MD [facility] CPT-91372 Level 3 Est. Patient 11:30:25 CDT Marcy crisostomo MD PhD [facility] CPT-91963 Level 3 Est. Patient 12:00:47 WAITER/WAITRESS ROOM SERVICE Carlton rich MD [facility] CPT-88889 Level 3 Est. Patient 16:31:06 WAITER/WAITRESS ROOM SERVICE Carlton rich MD [facility] CPT-79050 Level 3 Est. Patient 16:23:24 WAITER/WAITRESS ROOM SERVICE Ridge tam DO [facility] CPT-00251 Level 3 Est. Patient 12:34:12 CDT Carlton rich MD [facility] CPT-36324 Level 2 Est. Patient 15:43:33 CDT Robi armstrong MD [facility] CPT-96117 Level 4 Est. Patient 14:04:44 CDT Carlton rich MD [facility] CPT-80962 Level 3 Est. Patient 05:47:59 CDT Ridge tam [facility] CPT-44304 Level 3 Est. Patient 13:12:53 WAITER/WAITRESS ROOM SERVICE Carlton rich MD [facility] CPT-98722 Level 3 Est. Patient 14:26:53 CDT Hugo [...] CPT-J1100 Decadron 6mg (Dexamethasone) 14:32:13 CDT 2 CPT-47723 Hip bilat min 2V w AP pelvis 13:16:20 CDT 2 CPT-02964 Pelvis only 13:07:33 CDT CPT-30418 Spec Collection and Handling Fee 11:25:12 C DT CPT-66918 Fluzone Quadrivalent Intramuscular Suspe nsion 0.5 ML 14:31:55 CDT CPT-21923 Abx/Therapy Injection 13:28:47 WAITER/WAITRESS ROOM SERVICE CPT-J2930 Solu Medrol 125 mg (Methyl Prednisolone Sodium Succinate) 12:00:47 WAITER/WAITRESS ROOM SERVICE CPT-13585 Venipuncture Draw Fee 11:33:31 CDT CPT-95054 EKG Trac and Interp 11:21:09 CDT CPT-51196 Chest 2V Frontal and Lat 11:21:09 CDT 12/15 CPT-26582 Venipuncture Draw Fee 08:02:34 CDT CPT-12357 Chest 2V Frontal and Lat 05:47:59 CDT 06/05
--- OUTSIDE RECORDS SUMMARY | 2019-10-08 09:02 | XMS REPORT | Clinical Summary ---
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 CYMBALTA 30 MG ORAL CAPSULE DELAYED RELEASE PARTICLES 1 cap by mouth daily for depression DULOXETINE HCL 78257717416 No Longer Active Carlton Hu MD Active CYMBALTA 60 MG ORAL CAPSULE DELAYED RELEASE PARTICLES 1 cap by mouth daily for mood and pain DULOXETINE HCL 05997423371 Active Carlton Hu MD Active TUSSIONEX PENNKINETIC ER 10-8 MG/5ML ORAL SUSPENSION E XTENDED RELEASE 5ml po q12hr PRN Cough HYDROCOD POLST-CHLORPHEN POLST 68485110244 Active David Marianne GEAR SHAPER Active PREDNISONE 20 MG ORAL TABLET Take 2 tabs day 1 and 2 and 1 t ab days 3 and 4 PREDNISONE 94211589918 No Longer Active David Marianne GEAR SHAPER Active DOXYCYCLINE HYCLATE 100 MG ORAL CAPSULE 1 cap by mouth twice latasha ly DOXYCYCLINE HYCLATE 61013443734 No Longer Active David Marianne GEAR SHAPER Active TOPAMAX 100 MG ORAL TABLET Take 1 tablet po bid TOPIRAMATE 99681233432 No Longer Active David Marianne GEAR SHAPER Active TUSSIONEX PENNKINETIC ER 10-8 MG/5ML ORAL SUSPENSION E XTENDED RELEASE 5ml po q12hr PRN Cough HYDROCOD POLST-CHLORPHEN POLST 5 6521524024 No Longer Active David Marianne GEAR SHAPER Active AUGMENTIN 875-125 MG ORAL TABLET 1 po BID x 10 days 18/04/16 AMOXICILLIN-POT CLAVULANATE 09472252115 No Longer Active David Marianne GEAR SHAPER Active PREDNISONE 50 MG ORAL TABLET Take 50 mg dialy for 6 day s 7 PREDNISONE 31305139519 No Longer Active David Marianne GEAR SHAPER Active TUSSIONEX PENNKINETIC ER 10-8 MG/5ML ORAL SUSPENSION E XTENDED RELEASE 5ml po q12hr PRN Cough HYDROCOD POLST-CHLORPHEN POLST 5 6955515643 No Longer Active Cherelle Torres RN Active PREDNISONE 20 MG ORAL TABLET two tabs by mouth today, then one tab by mouth days two and three and four PREDNISONE 69461393209 No Lo nger Active Cherelle Torres RN Active AZITHROMYCIN 250 MG ORAL TABLET 2 po qd x 1 day, then 1 po q d x 4 days AZITHROMYCIN 27375414680 No Longer Active Ridge Bess DO Active PREDNISONE 20 MG ORAL TABLET 2 po qd x 5 days P REDNISONE 36586688113 No Longer Active Perez Mora MD Active PROAIR HFA 108 (90 BASE) MCG/ACT INHALATION AEROSOL SO LUTION 2 puffs four times a day as needed ALBUTEROL SULFATE 34529520777 No Long er Active Becky Cuellar RMA Active ASPIRIN 81 MG ORAL TABLET 1 po qd ASPIRIN 83947370869 Active Carlton Hu MD Active PREDNISONE 20 MG ORAL TABLET 1 tab twice daily for 3 d ay, then one daily for three days PREDNISONE 67911122771 No Longer Active Carlton Hu MD Active AUGMENTIN 875-125 MG ORAL TABLET 1 po BID x 10 days 16/03/22 AMOXICILLIN-POT CLAVULANATE 89053653754 No Longer Active Elise Garcia APRN Active TERBINAFINE HCL 250 MG ORAL TABLET 1 qDay for nail fungus 7 TERBINAFINE HCL 27131502023 No Longer Active Carlton Hu MD A ctive AMOXICILLIN 500 MG ORAL CAPSULE 1 cap by mouth three times a day AMOXICILLIN 77215786227 No Longer Active Carlton Hu MD Active ELMIRON 100 MG ORAL CAPSULE 2 tablets in the am and 1 tablet at hs PENTOSAN POLYSULFATE SODIUM 64243691543 No Longer Active Robert Hu MD Active MUCINEX D 60-600 MG ORAL TABLET EXTENDED RELEASE 12 HOUR 1 t ab po q am PSEUDOEPHEDRINE-GUAIFENESIN 84272939830 No Longer Act nael Carlton Hu MD Active MUCINEX DM MAXIMUM STRENGTH 60-1200 MG ORAL TABLET EXT ENDED RELEASE 12 HOUR 1 tab po q am DEXTROMETHORPHAN-GUAIFENESIN 44183314097 No Longer Active Carlton Hu MD Active TUSSIONEX PENNKINETIC ER 10-8 MG/5ML ORAL SUSPENSION E XTENDED RELEASE 5ml po q12hr PRN Cough HYDROCOD POLST-CHLORPHEN POLST 5 9134915130 No Longer Active Carlton Hu MD Active POTASSIUM CHLORIDE ER 20 MEQ ORAL TABLET EXTENDED RELE ASE Take 1 by mouth 4 times daily for 7 days POTASSIUM CHLORIDE 94322507307 No Longer Active Carlton Hu MD Active ZITHROMAX 250 MG ORAL TABLET 2 po today, then 1 po q days 2-5 20 14/09/04 AZITHROMYCIN 29328392921 No Longer Active Elise Garcia APRN Active TUSSIONEX PENNKINETIC ER 10-8 MG/5ML ORAL SUSPENSION E XTENDED RELEASE 5 ml twice a day as needed for cough HYDROCOD POLST-CHLORPH EN POLST 29799813058 No Longer Active Elise Garcia APRN Active MONTELUKAST SODIUM 10 MG ORAL TABLET 1 po daily for Allergy MONTELUKAST SODIUM 38603488994 Active Carlton Hu MD Ac tive TUSSIONEX PENNKINETIC ER 10-8 MG/5ML ORAL SUSPENSION E XTENDED RELEASE 5ml po q12hr PRN Cough HYDROCOD POLST-CHLORPHEN POLST 5 5931294110 No Longer Active Hugo Restrepo MD Active GABAPENTIN 100 MG ORAL CAPSULE 1 po BID for fibromyalgia GABAPENTIN 45837618164 Active ALFREDO Holly Active LYRICA 100 MG ORAL CAPSULE Take 1 tab po BID for fibromyalgia 20 11/08/21 PREGABALIN 87775311944 No Longer Active Elise Garcia APRN A ctive PREDNISONE 20 MG ORAL TABLET 2 tabs daily for 3 days, 1 tab daily for 3 days, 1/2 tab daily for 2 days PREDNISONE 85124438504 No Longer Active Diya De Guzman APRN Active TUSSIONEX PENNKINETIC ER 10-8 MG/5ML ORAL SUSPENSION E XTENDED RELEASE 5 mL PO q 12 hrs PRN cough HYDROCOD POLST-CHLORPHEN POLST 851227 07222 No Longer Active Jiriley De Guzman APRN Active FLUTICASONE PROPIONATE 50 MCG/ACT NASAL SUSPENSION 2 s prays each nostril daily until bottle is empty FLUTICASONE PROPIONATE 479304065 99 No Longer Active Diya De Guzman APRN Active ASMANEX 60 METERED DOSES 220 MCG/INH INHALATION AEROSO L POWDER BREATH ACTIVATED 1 puff bid with rinse after MOMETASONE FUROATE 9709736 4102 No Longer Active Diya De Guzman APRN Active ZITHROMAX Z-REYNA 250 MG ORAL TABLET 2 today, then 1 daily for 4 d ays AZITHROMYCIN 50096149139 No Longer Active Elise Garcia APRN Active TUSSIONEX PENNKINETIC ER 10-8 MG/5ML ORAL SUSPENSION E XTENDED RELEASE 5ml po q12hr PRN Cough HYDROCOD POLST-CHLORPHEN POLST 5 5968914936 No Longer Active Elise Garcia APRN Active PREDNISONE 20 MG ORAL TABLET 2 tabs daily for 3 days, 1 tab daily for 3 days, 1/2 tab daily for 2 days PREDNISONE 42039312847 No Longer Active Diya De Guzman APRN Active AMOXICILLIN 500 MG ORAL CAPSULE 2 po BID x 10 days 201 09/29/08 AMOXICILLIN 12350461839 No Longer Active Diya De Guzman APRN Act nael SINGULAIR 10 MG ORAL TABLET 1 po qday for allergies 20 14/01/12 MONTELUKAST SODIUM 63337070754 No Longer Active Carlton Hu MD Active LEVAQUIN 500 MG ORAL TABLET 1 tablet by mouth daily 20 13/09/24 LEVOFLOXACIN 12877324589 No Longer Active Carlton Hu MD Acti ve FLUTICASONE PROPIONATE 50 MCG/ACT NASAL SUSPENSION 2 s prays each nostril daily for 2 weeks, then 1 spray each nostril daily. FLUTICASONE PROPIONATE 50294030030 Active Carlton Hu MD Active ZITHROMAX 250 MG ORAL TABLET 2 po today, then 1 po q days 2-5 20 13/08/10 AZITHROMYCIN 46209629696 No Longer Active Elise Garcia APRN Active XANAX 0.5 MG ORAL TABLET one tablet by mouth daily prn anxiety 2015 ALPRAZOLAM 15901937672 Active ALFREDO Holly Active CEFDINIR 300 MG ORAL CAPSULE 1 po BID x 10 days CEFDINIR 52774305789 No Longer Active Carlton Hu MD Active ZOCOR 40 MG ORAL TABLET 1 tab by mouth daily SI MVASTATIN 40836546746 No Longer Active Carlton Hu MD Active CYCLOBENZAPRINE HCL 10 MG ORAL TABLET 1 tablet by mouth BID prn had pain CYCLOBENZAPRINE HCL 89329828710 No Longer Active Jayden Hu MD Active LEVOFLOXACIN 500 MG ORAL TABLET 1 tab PO daily x 10 days LEVOFLOXACIN 24277490757 No Longer Active Carlton Hu MD Acti ve PREDNISONE 20 MG ORAL TABLET 3 tab PO qd x 2d, 2 tab P O qd x 2d, 1 tab PO qd x 2d, 1/2 tab PO qd x 2d PREDNISONE 93120180947 No Lo nger Active Carlton Hu MD Active FLUTICASONE PROPIONATE 50 MCG/ACT NASAL SUSPENSION 1 t o 2 sprays each nostril daily FLUTICASONE PROPIONATE 72775028041 No Longer Ac tive Blaine HERNANDEZ Active CHERATUSSIN AC 100-10 MG/5ML ORAL SYRUP 1 tsp by mouth every 4 hours as needed for cough GUAIFENESIN-CODEINE 56201305284 No Longe r Active Blaine HERNANDEZ Active PROMETHAZINE-CODEINE 6.25-10 MG/5ML ORAL SYRUP 1 tsp b y mouth every 6 hours if needed for cough PROMETHAZINE-CODEINE 65943074499 No Longer Active Blaine HERNANDEZ Active CHERATUSSIN AC 100-10 MG/5ML ORAL SYRUP 1 tsp by mouth every 4 hours as needed for cough GUAIFENESIN-CODEINE 31359223016 No Longe r Active Blaine HERNANDEZ Active ZITHROMAX Z-REYNA 250 MG ORAL TABLET 2 today, then 1 daily for 4 d ays AZITHROMYCIN 12098799721 No Longer Active Columba Raida Act nael ZITHROMAX 250 MG ORAL TABLET 2 po today, then 1 po q days 2-5 20 14/03/21 AZITHROMYCIN 41827628094 No Longer Active Carlton Hu MD Active ZITHROMAX Z-REYNA 250 MG ORAL TABLET 2 today, then 1 daily for 4 d ays AZITHROMYCIN 32470371430 No Longer Active Columba Raida Act nael AUGMENTIN 875-125 MG ORAL TABLET 1 po BID x 10 days 13/01/20 AMOXICILLIN-POT CLAVULANATE 06545940691 No Longer Active Diya De Guzman APRN Active ZITHROMAX 250 MG ORAL TABLET 2 po today, then 1 po q days 2-5 20 12/08/14 AZITHROMYCIN 00419469755 No Longer Active Carlton Hu MD Active TRAMADOL HCL 50 MG ORAL TABLET 1 po tid with ES Tylenol TRAMADOL HCL 02665272285 Active ALFREDO Holly Active PREMARIN 0.625 MG ORAL TABLET TAKE 1 TAB BY MOUTH DAILY ESTROGENS CONJUGATED 37255291356 No Longer Active Ridge Bess DO A ctive CYMBALTA 30 MG ORAL CAPSULE DELAYED RELEASE PARTICLES 1 cap by mouth daily DULOXETINE HCL 05274816958 No Longer Active Ridge tam DO Active AMOXICILLIN 500 MG ORAL CAPSULE 1 tab by mouth 3 times daily x 10 days AMOXICILLIN 64957745333 No Longer Active Carlton bustamante MD Active AMOXICILLIN 500 MG ORAL CAPSULE 1 tab by mouth 3 times daily x 10 days AMOXICILLIN 43068201562 No Longer Active Carlton bustamante MD Active PROMETHAZINE-CODEINE 6.25-10 MG/5ML ORAL SYRUP 1 tsp b y mouth every 8 hours prn cough PROMETHAZINE-CODEINE 80301346011 No Longer Acti ve Carlton Hu MD Active MEDROL 4 MG ORAL TABLET THERAPY PACK 6 pills x 1 day, then 5 pills x 1 day then 4 pills x 1 day, then 3 pills x 1 day, then 2 pills x 1 day, then 1 pill x 1 day, then stop METHYLPREDNISOLONE 99240839914 No Long er Active Perez Mora MD Active AZITHROMYCIN 250 MG ORAL TABLET 2 po qd x 1 day, then 1 po q d x 4 days AZITHROMYCIN 68445521397 No Longer Active Perez Ambriz MD Active SYMBICORT 160-4.5 MCG/ACT INHALATION AEROSOL 2 puffs bid wit h rinse after BUDESONIDE-FORMOTEROL FUMARATE 06563387512 N o Longer Active Perez Mora MD Active LYRICA 75 MG ORAL CAPSULE TAKE 1 CAPSULE BY MOUTH TWICE DAILY PREGABALIN 34176426779 No Longer Active Carlton Hu MD Acti ve TOPAMAX 25 MG ORAL TABLET 1 qHS x 1 week, then 1 BID x 1 week, then 1 qAM and 2 qHS x 1 week, then 2 BID (migraine prevention) T OPIRAMATE 34527925345 No Longer Active Jerica FUENTES Active TOPAMAX 50 MG ORAL TABLET take 1 tab po BID for migraines. 07/02 TOPIRAMATE 58866153517 No Longer Active Jerica FUENTES Active TRIAMCINOLONE ACETONIDE 0.1 % EXTERNAL CREAM apply three roger es daily prn rash TRIAMCINOLONE ACETONIDE 44890285890 No Longer Active Carlton Hu MD Active PAXIL 40 MG ORAL TABLET take 1 tab po qday for depression 0 PAROXETINE HCL 23826759563 Active Carlton Hu MD Active CHERATUSSIN AC 100-10 MG/5ML ORAL SYRUP 5ml po q6hr PRN Cough 20 13/04/14 GUAIFENESIN-CODEINE 00104180221 No Longer Active Carlton Hu MD Active MEDROL 4 MG ORAL TABLET THERAPY PACK 6 tabs on day 1, 5 tabs on day 2, 4 tabs on day 3, 3 tabs on day 4, 2 tabs on day 5, 1 tab on day 6 2013 METHYLPREDNISOLONE 18051551352 No Longer Active Perez Mora MD Active AZITHROMYCIN 250 MG ORAL TABLET 2 po qd x 1 day, then 1 po q d x 4 days AZITHROMYCIN 03766151064 No Longer Active Perez Ambriz MD Active PROPRANOLOL HCL 60 MG ORAL TABLET 1 PO Q D PROPRANOLOL HCL 15946974022 No Longer Active Perez Mora MD Activ e CHERATUSSIN AC 100-10 MG/5ML ORAL SYRUP take one tsp po Q 6h ours prn cough GUAIFENESIN-CODEINE 70492993951 No Longer Active Zia Mora MD Active AUGMENTIN 875-125 MG ORAL TABLET 1 tab by mouth twice daily with food AMOXICILLIN-POT CLAVULANATE 95424245913 No Longer Act nael Perez Mora MD Active CHERATUSSIN AC 100-10 MG/5ML ORAL SYRUP 1 tsp by mouth every 4 hours as needed for cough GUAIFENESIN-CODEINE 55926434579 No Longe r Active Hugo Restrepo MD Active ACETAMINOPHEN-CODEINE #3 300-30 MG ORAL TABLET 1 PO Q 4-6 HRS DC N PAIN ACETAMINOPHEN-CODEINE 16926295602 No Longer Active Hugo Restrepo MD Active LEVAQUIN 500 MG ORAL TABLET take one po QD LEVO FLOXACIN 16956228918 No Longer Active Griffin HERNANDEZ Active PREDNISONE 20 MG ORAL TABLET Take 3 tabs daily for 3 d ays, 2 tabs daily for 3 days, 1 tab daily for 3 days, 1/2 tab daily for 3 days 11/07 PREDNISONE 09488161727 No Longer Active Carlton Hu MD Acti ve AVELOX 400 MG ORAL TABLET 1 tab by mouth daily MOXIFLOXACIN HCL 53489053216 No Longer Active Carlton Hu MD Active CHERATUSSIN AC 100-10 MG/5ML ORAL SYRUP 1 tsp by mouth every 4 hours as needed for cough GUAIFENESIN-CODEINE 35660018100 No Longe r Active Hugo Restrepo MD Active AVELOX 400 MG ORAL TABLET 1 tab by mouth daily MOXIFLOXACIN HCL 98581250274 No Longer Active Marcy De La Rosa MD PhD Active TERBINAFINE HCL 250 MG ORAL TABLET 1 qDay T ERBINAFINE HCL 99957222661 No Longer Active Marcy De La Rosa MD PhD Active CHERATUSSIN AC 100-10 MG/5ML ORAL SYRUP 1 tsp by mouth every 4 hours as needed for cough GUAIFENESIN-CODEINE 61124407266 No Longe r Active Marcy De La Rosa MD PhD Active AVELOX 400 MG ORAL TABLET 1 tab by mouth daily MOXIFLOXACIN HCL 77820158068 No Longer Active Marcy De La Rosa MD PhD Active HYDROCODONE-ACETAMINOPHEN 5-325 MG ORAL TABLET 1 po q 6hr PRN co ugh HYDROCODONE-ACETAMINOPHEN 68901156489 No Longer Active Marcy De La Rosa MD PhD Active PREDNISONE 20 MG ORAL TABLET 2 tabs daily for 3 days, 1 tab daily for 3 days, 1/2 tab daily for 2 days PREDNISONE 85231764510 No Longer Active Carlton Hu MD Active CEFDINIR 300 MG ORAL CAPSULE by mouth twice a day 2011 CEFDINIR 45280797174 No Longer Active Carlton Hu MD Acti ve HYDROCHLOROTHIAZIDE 25 MG ORAL TABLET 1 TAB PO DAILY HYDROCHLOROTHIAZIDE 46829051825 Active Carlton Hu MD A ctive ACETAMINOPHEN-CODEINE #3 300-30 MG ORAL TABLET 1 tablet po q 4-6 hrs prn pain ACETAMINOPHEN-CODEINE 10024966485 No Longer Active Ridge Bess DO Active ZITHROMAX 250 MG ORAL TABLET 2 po today, then 1 po q days 2-5 20 03/07/07 AZITHROMYCIN 40260402749 No Longer Active Carlton Hu MD Active CHERATUSSIN AC 100-10 MG/5ML ORAL SYRUP take 1 tsp po q4-6 h ours prn cough GUAIFENESIN-CODEINE 61783214099 No Longer Active Jayden Hu MD Active ACETAMINOPHEN-CODEINE #3 300-30 MG ORAL TABLET 1 PO Q 4-6 HR PRN PAIN ACETAMINOPHEN-CODEINE 82494298346 No Longer Active Da raimundo Hu MD Active LORTAB 7.5-500 MG/15ML ORAL ELIXIR 7.5 ml po q 4 hour prn cough HYDROCODONE-ACETAMINOPHEN 89595551405 No Longer Active Carlton Hu MD Active PREDNISONE 20 MG ORAL TABLET 1 po bid 3 days, then 1 po q day 3 days PREDNISONE 93461349760 No Longer Active Carlton Hu MD Active CEFDINIR 300 MG ORAL CAPSULE by mouth twice a day 2011 CEFDINIR 40546873166 No Longer Active Carlton Hu MD Acti ve CEFDINIR 300 MG ORAL CAPSULE by mouth twice a day 2010 CEFDINIR 15531237689 No Longer Active Carlton Hu MD Acti ve CEFDINIR 300 MG ORAL CAPSULE by mouth twice a day 2010 CEFDINIR 17669353778 No Longer Active Carlton Hu MD Acti ve TESSALON PERLES 100 MG ORAL CAPSULE 1 tablet by mouth 3 times daily as needed for cough BENZONATATE 75734141783 No Longer Active Carlton Hu MD Active CEFDINIR 300 MG ORAL CAPSULE by mouth twice a day 2010 CEFDINIR 24052557369 No Longer Active Carlton Hu MD Acti ve ZITHROMAX Z-REYAN 250 MG ORAL TABLET 2 today, then 1 daily for 4 d ays AZITHROMYCIN 13213271481 No Longer Active Hugo Restrepo MD Active TESSALON PERLES 100 MG ORAL CAPSULE 1 tablet by mouth 3 times daily as needed for cough TESSALBARRON PERLES 100 MG ORAL CAPSULE 38666 7 BENZONATATE Inactive PREDNISONE 20 MG ORAL TABLET 1 po bid 3 days, then 1 po q day 3 days PREDNISONE 20 MG ORAL TABLET 642547 PREDNISONE [place] ctive LORTAB 7.5-500 MG/15ML ORAL ELIXIR 7.5 [...] cough CHERATUSSIN AC 100-10 MG/5ML ORAL SYRUP 050044 GUAIFENESIN-CODEINE Inactive ACETAMINOPHEN-CODEINE #3 300-30 MG ORAL TABLET 1 tablet po q 4-6 hrs prn pain ACETAMINOPHEN-CODEINE #3 300-30 MG ORAL TABLET ACETAMINOPHEN-CODEINE Inactive HYDROCODONE-ACETAMINOPHEN 5-325 MG ORAL TABLET 1 po q 6hr PRN co ugh HYDROCODONE-ACETAMINOPHEN 5-325 MG ORAL TABLET 426585 HYDROCODONE-ACETAMINOPHEN Inactive AVELOX 400 MG ORAL TABLET 1 tab by mouth daily AVELOX 400 MG ORAL TABLET 871370 MOXIFLOXACIN HCL Inactive CHERATUSSIN AC 100-10 MG/5ML ORAL SYRUP 1 tsp by mouth every 4 hours as needed for cough CHERATUSSIN AC 100-10 MG/5ML ORAL SYRUP 9 81057 GUAIFENESIN-CODEINE Inactive TERBINAFINE HCL 250 MG ORAL TABLET 1 qDay 07/08 TERBINAFINE HCL 250 MG ORAL TABLET 465396 TERBINAFINE HCL Inactive CHERATUSSIN AC 100-10 MG/5ML ORAL SYRUP 1 tsp by mouth every 4 hours as needed for cough CHERATUSSIN AC 100-10 MG/5ML ORAL SYRUP 9 75898 GUAIFENESIN-CODEINE Inactive ACETAMINOPHEN-CODEINE #3 300-30 MG ORAL TABLET 1 PO Q 4-6 HRS DC N PAIN ACETAMINOPHEN-CODEINE #3 300-30 MG ORAL TABLET ACETAMINOPHEN-CODEINE Inactive CHERATUSSIN AC 100-10 MG/5ML ORAL SYRUP 1 tsp by mouth every 4 hours as needed for cough CHERATUSSIN AC 100-10 MG/5ML ORAL SYRUP 9 63929 GUAIFENESIN-CODEINE Inactive AUGMENTIN 875-125 MG ORAL TABLET 1 tab by mouth twice daily with food AUGMENTIN 875-125 MG ORAL TABLET AMOXICIL MADELINE-POT CLAVULANATE Inactive CHERATUSSIN AC 100-10 MG/5ML ORAL SYRUP take one tsp po Q 6h ours prn cough CHERATUSSIN AC 100-10 MG/5ML ORAL SYRUP 670692 GUAIFENESIN-CODEINE Inactive PROPRANOLOL HCL 60 MG ORAL TABLET 1 PO Q D PROPRANOLOL HCL 60 MG ORAL TABLET 302292 PROPRANOLOL HCL Inactive TOPAMAX 50 MG ORAL TABLET take 1 tab po BID for migraines. 07/02 TOPAMAX 50 MG ORAL TABLET 535540 TOPIRAMATE Inacti ve TOPAMAX 25 MG ORAL TABLET 1 qHS x 1 week, then 1 BID x 1 week, then 1 qAM and 2 qHS x 1 week, then 2 BID (migraine prevention) TOPAMAX 25 MG ORAL TABLET 122484 TOPIRAMATE Inactive LYRICA 75 MG ORAL CAPSULE TAKE 1 CAPSULE BY MOUTH TWICE DAILY LYRICA 75 MG ORAL CAPSULE PREGABALIN Inactive SYMBICORT 160-4.5 MCG/ACT INHALATION AEROSOL 2 puffs bid wit h rinse after SYMBICORT 160-4.5 MCG/ACT INHALATION AEROSOL BUDESONIDE- FORMOTEROL FUMARATE Inactive PROMETHAZINE-CODEINE 6.25-10 MG/5ML ORAL SYRUP 1 tsp b y mouth every 8 hours prn cough PROMETHAZINE-CODEINE 6.25-10 MG/ 5ML ORAL SYRUP 959708 PROMETHAZINE-CODEINE Inactive CYMBALTA 30 MG ORAL CAPSULE DELAYED RELEASE PARTICLES 1 cap by mouth daily CYMBALTA 30 MG ORAL CAPSULE DELAYED RELE ASE PARTICLES 785218 DULOXETINE HCL Inactive PREMARIN 0.625 MG ORAL TABLET TAKE 1 TAB BY MOUTH DAILY PREMARIN 0.625 MG ORAL TABLET ESTROGENS CONJUGATED Inactive CHERATUSSIN AC 100-10 MG/5ML ORAL SYRUP 1 tsp by mouth every 4 hours as needed for cough CHERATUSSIN AC 100-10 MG/5ML ORAL SYRUP 9 09518 GUAIFENESIN-CODEINE Inactive PROMETHAZINE-CODEINE 6.25-10 MG/5ML ORAL SYRUP 1 tsp b y mouth every 6 hours if needed for cough PROMETHAZINE-CODEINE 6.25-10 MG/5ML ORAL SYRUP 894375 PROMETHAZINE-CODEINE Inactive CHERATUSSIN AC 100-10 MG/5ML ORAL SYRUP 1 tsp by mouth every 4 hours as needed for cough CHERATUSSIN AC 100-10 MG/5ML ORAL SYRUP 9 53506 GUAIFENESIN-CODEINE Inactive FLUTICASONE PROPIONATE 50 MCG/ACT NASAL SUSPENSION 1 t o 2 sprays each nostril daily FLUTICASONE PROPIONATE 50 MCG/AC T NASAL SUSPENSION 4102408 FLUTICASONE PROPIONATE Inactive PREDNISONE 20 MG ORAL TABLET 3 tab PO qd x 2d, 2 tab P O qd x 2d, 1 tab PO qd x 2d, 1/2 tab PO qd x 2d PREDNISONE 20 MG ORAL TAB LET 606681 PREDNISONE Inactive LEVOFLOXACIN 500 MG ORAL TABLET 1 tab PO daily x 10 days LEVOFLOXACIN 500 MG ORAL TABLET 992442 LEVOFLOXACIN Inactive CYCLOBENZAPRINE HCL 10 MG ORAL TABLET 1 tablet by mouth BID prn had pain CYCLOBENZAPRINE HCL 10 MG ORAL TABLET 988528 CYCLOBENZAPRINE HCL Inactive ZOCOR 40 MG ORAL [...] FLUTICASONE PROPIO EFE 50 MCG/ACT NASAL SUSPENSION 1615442 FLUTICASONE PROPIONATE Inactive TUSSIONEX PENNKINETIC ER 10-8 [...] three days PREDNISONE 20 MG ORAL TABLET 578815 PREDNIS ONE Inactive PROAIR HFA 108 (90 BASE) MCG/ACT INHALATION AEROSOL SO LUTION 2 puffs four times a day as needed PROAIR HFA 108 (90 B ASE) MCG/ACT INHALATION AEROSOL SOLUTION ALBUTEROL SULFATE Inactive PREDNISONE 20 MG ORAL TABLET two tabs by mouth today, then one tab by mouth days two and three and four PREDNISONE 20 MG ORAL TAB LET 159591 PREDNISONE Inactive TUSSIONEX PENNKINETIC ER 10-8 MG/5ML ORAL SUSPENSION E XTENDED RELEASE 5ml po q12hr PRN Cough TUSSIONEX PENNKINETI C ER 10-8 MG/5ML ORAL SUSPENSION EXTENDED RELEASE HYDROCOD POLST-CHLORPHEN POLST I nactive TUSSIONEX PENNKINETIC ER 10-8 MG/5ML ORAL SUSPENSION E XTENDED RELEASE 5ml po q12hr PRN Cough TUSSIONEX ELISABETHJenniferMADELINELAINEY C ER 10-8 MG/5ML ORAL SUSPENSION EXTENDED RELEASE HYDROCOD POLST-CHLORPHEN POLST I nactive TOPAMAX 100 MG ORAL TABLET Take 1 tablet po bid 04/20 TOPAMAX 100 MG ORAL TABLET 986624 TOPIRAMATE Inactive CYMBALTA 30 MG ORAL CAPSULE DELAYED RELEASE PARTICLES 1 cap by mouth daily for depression CYMBALTA 30 MG ORAL CAPSULE DELAYED RELEASE PARTICLES 081492 DULOXETINE HCL Inactive ZITHROMAX Z-REYNA 250 MG ORAL TABLET 2 today, then 1 daily for 4 d ays ZITHROMAX Z-REYNA 250 MG ORAL TABLET 784008 AZITHROMYCIN Inactive CEFDINIR 300 MG ORAL CAPSULE by mouth twice a day 2010 CEFDINIR 300 MG ORAL CAPSULE 369904 CEFDINIR Inactive CEFDINIR 300 MG ORAL CAPSULE by mouth twice a day 2010 CEFDINIR 300 MG ORAL CAPSULE 482119 CEFDINIR Inactive CEFDINIR 300 MG ORAL CAPSULE by mouth twice a day 2010 CEFDINIR 300 MG ORAL CAPSULE 583254 CEFDINIR Inactive CEFDINIR 300 MG ORAL CAPSULE by mouth twice a day 2011 CEFDINIR 300 MG ORAL CAPSULE 724357 CEFDINIR Inactive ZITHROMAX 250 MG ORAL TABLET 2 po today, then 1 po q days 2-5 03/07/07 ZITHROMAX 250 MG ORAL TABLET 387131 AZITHROMYCIN [place] ctive CEFDINIR 300 MG ORAL CAPSULE by mouth twice a day 2011 CEFDINIR 300 MG ORAL CAPSULE 025010 CEFDINIR Inactive PREDNISONE 20 MG ORAL TABLET 2 tabs daily for 3 days, 1 tab daily for 3 days, 1/2 tab daily for 2 days PREDNISONE 20 MG ORAL T ABLET 648971 PREDNISONE Inactive AVELOX 400 MG ORAL TABLET 1 tab by mouth daily AVELOX 400 MG ORAL TABLET 086942 MOXIFLOXACIN HCL Inactive AVELOX 400 MG ORAL TABLET 1 tab by mouth daily AVELOX 400 MG ORAL TABLET 307297 MOXIFLOXACIN HCL Inactive PREDNISONE 20 MG ORAL TABLET Take 3 tabs daily for 3 d ays, 2 tabs daily for 3 days, 1 tab daily for 3 days, 1/2 tab daily for 3 days 11/07 PREDNISONE 20 MG ORAL TABLET 160198 PREDNISONE Inactive LEVAQUIN 500 MG ORAL TABLET take one po QD LEVAQUIN 500 MG ORAL TABLET 949809 LEVOFLOXACIN Inactive AZITHROMYCIN 250 MG ORAL TABLET 2 po qd x 1 day, then 1 po q d x 4 days AZITHROMYCIN 250 MG ORAL TABLET 613911 AZITHROMY GIOVANNI Inactive MEDROL 4 MG ORAL TABLET THERAPY PACK 6 tabs on day 1, 5 tabs on day 2, 4 tabs on day 3, 3 tabs on day 4, 2 tabs on day 5, 1 tab on day 6 2013 MEDROL 4 MG ORAL TABLET THERAPY PACK 053441 METHYLPREDNISOLONE [place] ctive CHERATUSSIN AC 100-10 MG/5ML ORAL SYRUP 5ml po q6hr PRN Cough 20 13/04/14 CHERATUSSIN AC 100-10 MG/5ML ORAL SYRUP 630610 GUAIFENE SIN-CODEINE Inactive TRIAMCINOLONE ACETONIDE 0.1 % EXTERNAL CREAM apply three roger es daily prn rash TRIAMCINOLONE ACETONIDE 0.1 % EXTERNAL CREAM 101 4314 TRIAMCINOLONE ACETONIDE Inactive AZITHROMYCIN 250 MG ORAL TABLET 2 po qd x 1 day, then 1 po q d x 4 days AZITHROMYCIN 250 MG ORAL TABLET 171202 AZITHROMY GIOVANNI Inactive MEDROL 4 MG ORAL TABLET THERAPY PACK 6 pills x 1 day, then 5 pills x 1 day then 4 pills x 1 day, then 3 pills x 1 day, then 2 pills x 1 day, then 1 pill x 1 day, then stop MEDROL 4 MG ORAL TABLET THERAPY PACK 803754 METHYLPREDNISOLONE Inactive AMOXICILLIN 500 MG ORAL CAPSULE 1 tab by mouth 3 times daily x 10 days AMOXICILLIN 500 MG ORAL CAPSULE 950659 AMOXICILL IN Inactive AMOXICILLIN 500 MG ORAL CAPSULE 1 tab by mouth 3 times daily x 10 days AMOXICILLIN 500 MG ORAL CAPSULE 407238 AMOXICILL IN Inactive ZITHROMAX 250 MG ORAL TABLET 2 po today, then 1 po q days 2-5 20 12/08/14 ZITHROMAX 250 MG ORAL TABLET 074752 AZITHROMYCIN Greer ctive AUGMENTIN 875-125 MG ORAL TABLET 1 po BID x 10 days 20 13/01/20 AUGMENTIN 875-125 MG ORAL TABLET AMOXICILLIN-POT CLAVULANATE Inactive ZITHROMAX Z-REYNA 250 MG ORAL TABLET 2 today, then 1 daily for 4 d ays ZITHROMAX Z-REYNA 250 MG ORAL TABLET 528509 AZITHROMYCIN Inactive ZITHROMAX 250 MG ORAL TABLET 2 po today, then 1 po q days 2-5 20 14/03/21 ZITHROMAX 250 MG ORAL TABLET 873816 AZITHROMYCIN [place] [facility] ZITHROMAX Z-REYNA 250 MG ORAL TABLET 2 today, then 1 daily for 4 d ays ZITHROMAX Z-REYNA 250 MG ORAL TABLET 503785 AZITHROMYCIN Inactive CEFDINIR 300 MG ORAL CAPSULE 1 po BID x 10 days 06/21 CEFDINIR 300 MG ORAL CAPSULE 679568 CEFDINIR Inactive ZITHROMAX 250 MG ORAL TABLET 2 po today, then 1 po q days 2-5 20 13/08/10 ZITHROMAX 250 MG ORAL TABLET 704498 AZITHROMYCIN [place] [facility] LEVAQUIN 500 MG ORAL TABLET 1 tablet by mouth daily 20 13/09/24 LEVAQUIN 500 MG ORAL TABLET 19971102 LEVOFLOXACIN Inactive SINGULAIR 10 MG ORAL TABLET 1 po qday for allergies 20 14/01/12 SINGULAIR 10 MG ORAL TABLET 20010504 MONTELUKAST SODIUM Inactive AMOXICILLIN 500 MG ORAL CAPSULE 2 po BID x 10 days 201 09/29/08 AMOXICILLIN 500 MG ORAL CAPSULE 167114 AMOXICILLIN Inactive PREDNISONE 20 MG ORAL TABLET 2 tabs daily for 3 days, 1 tab daily for 3 days, 1/2 tab daily for 2 days PREDNISONE 20 MG ORAL T ABLET 505631 PREDNISONE Inactive ZITHROMAX Z-REYNA 250 MG ORAL TABLET 2 today, then 1 daily for 4 d ays ZITHROMAX Z-REYNA 250 MG ORAL TABLET 195841 AZITHROMYCIN Inactive PREDNISONE 20 MG ORAL TABLET 2 tabs daily for 3 days, 1 tab daily for 3 days, 1/2 tab daily for 2 days PREDNISONE 20 MG ORAL T ABLET 733753 PREDNISONE Inactive ZITHROMAX 250 MG ORAL TABLET 2 po today, then 1 po q days 2-5 20 14/09/04 ZITHROMAX 250 MG ORAL TABLET 172749 AZITHROMYCIN [place] [facility] AMOXICILLIN 500 MG ORAL CAPSULE 1 cap by mouth three times a day AMOXICILLIN 500 MG ORAL CAPSULE 167912 AMOXICILLIN Inactive TERBINAFINE HCL 250 MG ORAL TABLET 1 qDay for nail fungus 7 TERBINAFINE HCL 250 MG ORAL TABLET 712394 TERBINAFINE HCL Inact nael AUGMENTIN 875-125 MG ORAL TABLET 1 po BID x 10 days 16/03/22 AUGMENTIN 875-125 MG ORAL TABLET AMOXICILLIN-POT CLAVULANATE Inactive PREDNISONE 20 MG ORAL TABLET 2 po qd x 5 days PREDNISONE 20 MG ORAL TABLET 925806 PREDNISONE Inactive AZITHROMYCIN 250 MG ORAL TABLET 2 po qd x 1 day, then 1 po q d x 4 days AZITHROMYCIN 250 MG ORAL TABLET 620923 AZITHROMY GIOVANNI Inactive PREDNISONE 50 MG ORAL TABLET Take 50 mg dialy for 6 day s 7 PREDNISONE 50 MG ORAL TABLET 066867 PREDNISONE Inactive AUGMENTIN 875-125 MG ORAL TABLET 1 po BID x 10 days 20 18/04/16 AUGMENTIN 875-125 MG ORAL TABLET AMOXICILLIN-POT CLAVULANATE Inactive DOXYCYCLINE HYCLATE 100 MG ORAL CAPSULE 1 cap by mouth twice latasha ly DOXYCYCLINE HYCLATE 100 MG ORAL CAPSULE 8285082 DOXYCYCL INE HYCLATE Inactive PREDNISONE 20 MG ORAL TABLET Take 2 tabs day 1 and 2 and 1 t ab days 3 and 4 PREDNISONE 20 MG ORAL TABLET 042578 PREDNISONE Inactive Vital Signs Date Name Value [...] - Chem istry sodium, serum 139 mmol/L 834-882 8424/10/12 potassium, serum 3.8 mmol/L 3.5-5.2 chloride, serum [...] negative Encounters Code Encounter Date Provider Facility CPT-[id number] Level 3 Est. Patient 16:53:54 CDT May haas MD [facility]-66908 [id number] Vst-Est Level IV 08:41:[address] Carlton Hu MD [facility]-35318 Level 3 Est. Patient 09:46:49 ADOPTION WORKER David lion [facility]-33299 [id number] Vst-Est Level III 11:12:16 CDT Yanet Bess DO [facility]-98337 Level 3 Est. Patient 11:34:49 ADOPTION WORKER Perez Mora MD [facility]-92426 Level 4 Est. Patient 09:51:32 ADOPTION WORKER Carlton rich MD [facility]-87467 Level 3 Est. Patient 10:26:00 ADOPTION WORKER Elise stephenson [employer] [facility]-39843 Level 3 Est. Patient 13:35:41 ADOPTION WORKER Carlton rich MD [facility]-85337 Level 3 Est. Patient 10:03:52 ADOPTION WORKER Carlton rich MD [facility]-92462 Level 3 Est. Patient 12:17:50 CDT Hugo Restrepo MD [facility]-76704 Level 3 Est. Patient 13:42:38 CDT Elise Are [facility] CPT-30260 Level 3 Est. Patient 13:23:51 CDT Diya Mariana cobian [facility] CPT-12274 Level 3 Est. Patient 14:22:19 ADOPTION WORKER Diya cobian [facility] CPT-63829 Level 3 Est. Patient 10:11:46 CDT Carlton rich MD [facility] CPT-49203 Level 3 Est. Patient 17:29:43 CDT Elise Are [facility] CPT-51947 Level 3 Est. Patient 11:58:06 CDT Elise Are [facility] CPT-13382 Level 4 Est. Patient 14:36:51 CDT Carlton rich MD [facility] CPT-82180 Level 3 Est. Patient 18:16:00 ADOPTION WORKER Blaine HERNANDEZ [facility] CPT-11139 Level 3 Est. Patient 09:45:49 ADOPTION WORKER Carlton rich MD [facility] CPT-26426 Level 3 Est. Patient 13:19:20 CDT Carlton rich MD [facility] CPT-35253 Level 3 Est. Patient 13:06:43 CDT Ridge tam DO [facility] CPT-16028 Level 3 Est. Patient 10:03:07 CDT Perez Mora MD [facility] CPT-25819 Level 3 Est. Patient 19:50:35 ADOPTION WORKER Carlton rich MD [facility] CPT-00030 Level 4 Est. Patient 18:05:01 ADOPTION WORKER Carlton rich MD [facility] CPT-12409 Level 3 Est. Patient 10:45:55 ADOPTION WORKER Hugo Restrepo MD [facility] CPT-73463 Level 3 Est. Patient 14:12:49 CDT Griffin HERNANDEZ [facility] CPT-28292 Level 3 Est. Patient 17:37:24 CDT Carlton rich MD [facility] CPT-98878 Level 3 Est. Patient 16:51:54 CDT Carlton rich MD [facility] CPT-92249 Level 3 Est. Patient 12:18:11 CDT Hugo Restrepo MD [facility] CPT-13315 Level 3 Est. Patient 11:30:25 CDT Marcy crisostomo MD PhD [facility] CPT-07189 Level 3 Est. Patient 12:00:47 ADOPTION WORKER Carlton rich MD [facility] CPT-56397 Level 3 Est. Patient 16:31:06 ADOPTION WORKER Carlton rich MD [facility] CPT-64833 Level 3 Est. Patient 16:23:24 ADOPTION WORKER Ridge tam DO [facility] CPT-83095 Level 3 Est. Patient 12:34:12 CDT Carlton rich MD [facility] CPT-17460 Level 2 Est. Patient 15:43:33 CDT Robi armstrong MD [facility] CPT-05435 Level 4 Est. Patient 14:04:44 CDT Carlton rich MD [facility] CPT-03464 Level 3 Est. Patient 05:47:59 CDT Ridge tam [facility] CPT-57817 Level 3 Est. Patient 13:12:53 ADOPTION WORKER Carlton rich MD [facility] CPT-35188 Level 3 Est. Patient 14:26:53 CDT Hugo Restrepo MD [facility] Procedures [...] CPT-J1100 Decadron 6mg (Dexamethasone) 14:32:13 CDT 2 CPT-16942 Hip bilat min 2V w AP pelvis 13:16:20 CDT 2 CPT-73117 Pelvis only 13:07:33 CDT CPT-59092 Spec Collection and Handling Fee 11:25:12 C DT CPT-54681 Fluzone Quadrivalent Intramuscular Suspe nsion 0.5 ML 14:31:55 CDT CPT-07644 Abx/Therapy Injection 13:28:47 ADOPTION WORKER CPT-J2930 Solu Medrol 125 mg (Methyl Prednisolone Sodium Succinate) 12:00:47 ADOPTION WORKER CPT-82348 Venipuncture Draw Fee 11:33:31 CDT CPT-39489 EKG Trac and Interp 11:21:09 CDT CPT-72556 Chest 2V Frontal and Lat 11:21:09 CDT 12/15 CPT-22631 Venipuncture Draw Fee 08:02:34 CDT CPT-16435 Chest 2V Frontal and Lat 05:47:59 CDT 06/05
--- OUTSIDE RECORDS SUMMARY | 2019-10-08 09:03 | XMS REPORT | Clinical Summary ---
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 CYMBALTA 30 MG ORAL CAPSULE DELAYED RELEASE PARTICLES 1 cap by mouth daily for depression DULOXETINE HCL 10146209639 No Longer Active Carlton Hu MD Active CYMBALTA 60 MG ORAL CAPSULE DELAYED RELEASE PARTICLES 1 cap by mouth daily for mood and pain DULOXETINE HCL 94689124855 Active Carlton Hu MD Active TUSSIONEX PENNKINETIC ER 10-8 MG/5ML ORAL SUSPENSION E XTENDED RELEASE 5ml po q12hr PRN Cough HYDROCOD POLST-CHLORPHEN POLST 71998967507 Active David Marianne MENTAL HEALTH SPECIALIST Active PREDNISONE 20 MG ORAL TABLET Take 2 tabs day 1 and 2 and 1 t ab days 3 and 4 PREDNISONE 40252340346 No Longer Active David Marianne MENTAL HEALTH SPECIALIST Active DOXYCYCLINE HYCLATE 100 MG ORAL CAPSULE 1 cap by mouth twice latasha ly DOXYCYCLINE HYCLATE 04338218093 No Longer Active David Marianne MENTAL HEALTH SPECIALIST Active TOPAMAX 100 MG ORAL TABLET Take 1 tablet po bid TOPIRAMATE 36823466557 No Longer Active David Marianne MENTAL HEALTH SPECIALIST Active TUSSIONEX PENNKINETIC ER 10-8 MG/5ML ORAL SUSPENSION E XTENDED RELEASE 5ml po q12hr PRN Cough HYDROCOD POLST-CHLORPHEN POLST 5 6580167894 No Longer Active David Marianne MENTAL HEALTH SPECIALIST Active AUGMENTIN 875-125 MG ORAL TABLET 1 po BID x 10 days 18/04/16 AMOXICILLIN-POT CLAVULANATE 08901988849 No Longer Active David Marianne MENTAL HEALTH SPECIALIST Active PREDNISONE 50 MG ORAL TABLET Take 50 mg dialy for 6 day s 7 PREDNISONE 86705015854 No Longer Active David Marianne MENTAL HEALTH SPECIALIST Active TUSSIONEX PENNKINETIC ER 10-8 MG/5ML ORAL SUSPENSION E XTENDED RELEASE 5ml po q12hr PRN Cough HYDROCOD POLST-CHLORPHEN POLST 5 6667634873 No Longer Active Cherelle Torres RN Active PREDNISONE 20 MG ORAL TABLET two tabs by mouth today, then one tab by mouth days two and three and four PREDNISONE 50051525376 No Lo nger Active Cherelle Torres RN Active AZITHROMYCIN 250 MG ORAL TABLET 2 po qd x 1 day, then 1 po q d x 4 days AZITHROMYCIN 52698762943 No Longer Active Ridge Bess DO Active PREDNISONE 20 MG ORAL TABLET 2 po qd x 5 days P REDNISONE 59678577026 No Longer Active Perez Mora MD Active PROAIR HFA 108 (90 BASE) MCG/ACT INHALATION AEROSOL SO LUTION 2 puffs four times a day as needed ALBUTEROL SULFATE 17800383620 No Long er Active Becky Cuellar RMA Active ASPIRIN 81 MG ORAL TABLET 1 po qd ASPIRIN 55202587442 Active Carlton Hu MD Active PREDNISONE 20 MG ORAL TABLET 1 tab twice daily for 3 d ay, then one daily for three days PREDNISONE 81959972034 No Longer Active Carlton Hu MD Active AUGMENTIN 875-125 MG ORAL TABLET 1 po BID x 10 days 16/03/22 AMOXICILLIN-POT CLAVULANATE 78342402813 No Longer Active Elise Garcia APRN Active TERBINAFINE HCL 250 MG ORAL TABLET 1 qDay for nail fungus 7 TERBINAFINE HCL 12684390935 No Longer Active Carlton Hu MD A ctive AMOXICILLIN 500 MG ORAL CAPSULE 1 cap by mouth three times a day AMOXICILLIN 00432261191 No Longer Active Carlton Hu MD Active ELMIRON 100 MG ORAL CAPSULE 2 tablets in the am and 1 tablet at hs PENTOSAN POLYSULFATE SODIUM 15376727555 No Longer Active Robert Hu MD Active MUCINEX D 60-600 MG ORAL TABLET EXTENDED RELEASE 12 HOUR 1 t ab po q am PSEUDOEPHEDRINE-GUAIFENESIN 49834990648 No Longer Act nael Carlton Hu MD Active MUCINEX DM MAXIMUM STRENGTH 60-1200 MG ORAL TABLET EXT ENDED RELEASE 12 HOUR 1 tab po q am DEXTROMETHORPHAN-GUAIFENESIN 17252811145 No Longer Active Carlton Hu MD Active TUSSIONEX PENNKINETIC ER 10-8 MG/5ML ORAL SUSPENSION E XTENDED RELEASE 5ml po q12hr PRN Cough HYDROCOD POLST-CHLORPHEN POLST 5 0210271485 No Longer Active Carlton Hu MD Active POTASSIUM CHLORIDE ER 20 MEQ ORAL TABLET EXTENDED RELE ASE Take 1 by mouth 4 times daily for 7 days POTASSIUM CHLORIDE 30140241947 No Longer Active Carlton Hu MD Active ZITHROMAX 250 MG ORAL TABLET 2 po today, then 1 po q days 2-5 20 14/09/04 AZITHROMYCIN 22971468027 No Longer Active Elise Garcia APRN Active TUSSIONEX PENNKINETIC ER 10-8 MG/5ML ORAL SUSPENSION E XTENDED RELEASE 5 ml twice a day as needed for cough HYDROCOD POLST-CHLORPH EN POLST 33863520924 No Longer Active Elise Garcia APRN Active MONTELUKAST SODIUM 10 MG ORAL TABLET 1 po daily for Allergy MONTELUKAST SODIUM 06224978868 Active Carlton Hu MD Ac tive TUSSIONEX PENNKINETIC ER 10-8 MG/5ML ORAL SUSPENSION E XTENDED RELEASE 5ml po q12hr PRN Cough HYDROCOD POLST-CHLORPHEN POLST 5 6459589417 No Longer Active Hugo Restrepo MD Active GABAPENTIN 100 MG ORAL CAPSULE 1 po BID for fibromyalgia GABAPENTIN 77320318742 Active ALFREDO Holly Active LYRICA 100 MG ORAL CAPSULE Take 1 tab po BID for fibromyalgia 20 11/08/21 PREGABALIN 27868123704 No Longer Active Elise Garcia APRN A ctive PREDNISONE 20 MG ORAL TABLET 2 tabs daily for 3 days, 1 tab daily for 3 days, 1/2 tab daily for 2 days PREDNISONE 57271223917 No Longer Active Diya De Guzman APRN Active TUSSIONEX PENNKINETIC ER 10-8 MG/5ML ORAL SUSPENSION E XTENDED RELEASE 5 mL PO q 12 hrs PRN cough HYDROCOD POLST-CHLORPHEN POLST 980887 64602 No Longer Active Jiriley De Guzman APRN Active FLUTICASONE PROPIONATE 50 MCG/ACT NASAL SUSPENSION 2 s prays each nostril daily until bottle is empty FLUTICASONE PROPIONATE 893168131 99 No Longer Active Diya De Guzman APRN Active ASMANEX 60 METERED DOSES 220 MCG/INH INHALATION AEROSO L POWDER BREATH ACTIVATED 1 puff bid with rinse after MOMETASONE FUROATE 6161393 4102 No Longer Active Diya De Guzman APRN Active ZITHROMAX Z-REYNA 250 MG ORAL TABLET 2 today, then 1 daily for 4 d ays AZITHROMYCIN 82876595613 No Longer Active Elise Garcia APRN Active TUSSIONEX PENNKINETIC ER 10-8 MG/5ML ORAL SUSPENSION E XTENDED RELEASE 5ml po q12hr PRN Cough HYDROCOD POLST-CHLORPHEN POLST 5 8149932005 No Longer Active Elise Garica APRN Active PREDNISONE 20 MG ORAL TABLET 2 tabs daily for 3 days, 1 tab daily for 3 days, 1/2 tab daily for 2 days PREDNISONE 93490150307 No Longer Active Diya De Guzman APRN Active AMOXICILLIN 500 MG ORAL CAPSULE 2 po BID x 10 days 201 09/29/08 AMOXICILLIN 56912886144 No Longer Active Diya De Guzman APRN Act nael SINGULAIR 10 MG ORAL TABLET 1 po qday for allergies 20 14/01/12 MONTELUKAST SODIUM 95534143797 No Longer Active Carlton Hu MD Active LEVAQUIN 500 MG ORAL TABLET 1 tablet by mouth daily 20 13/09/24 LEVOFLOXACIN 59233780649 No Longer Active Carlton Hu MD Acti ve FLUTICASONE PROPIONATE 50 MCG/ACT NASAL SUSPENSION 2 s prays each nostril daily for 2 weeks, then 1 spray each nostril daily. FLUTICASONE PROPIONATE 63601724591 Active Carlton Hu MD Active ZITHROMAX 250 MG ORAL TABLET 2 po today, then 1 po q days 2-5 20 13/08/10 AZITHROMYCIN 82020710932 No Longer Active lEise Garcia APRN Active XANAX 0.5 MG ORAL TABLET one tablet by mouth daily prn anxiety 2015 ALPRAZOLAM 74709351424 Active ALFREDO Holly Active CEFDINIR 300 MG ORAL CAPSULE 1 po BID x 10 days CEFDINIR 64617673383 No Longer Active Carlton Hu MD Active ZOCOR 40 MG ORAL TABLET 1 tab by mouth daily SI MVASTATIN 66378661602 No Longer Active Carlton Hu MD Active CYCLOBENZAPRINE HCL 10 MG ORAL TABLET 1 tablet by mouth BID prn had pain CYCLOBENZAPRINE HCL 37863615265 No Longer Active Jayden Hu MD Active LEVOFLOXACIN 500 MG ORAL TABLET 1 tab PO daily x 10 days LEVOFLOXACIN 33875088813 No Longer Active Carlton Hu MD Acti ve PREDNISONE 20 MG ORAL TABLET 3 tab PO qd x 2d, 2 tab P O qd x 2d, 1 tab PO qd x 2d, 1/2 tab PO qd x 2d PREDNISONE 83276654148 No Lo nger Active Carlton Hu MD Active FLUTICASONE PROPIONATE 50 MCG/ACT NASAL SUSPENSION 1 t o 2 sprays each nostril daily FLUTICASONE PROPIONATE 32187424543 No Longer Ac tive Blaine HERNANDEZ Active CHERATUSSIN AC 100-10 MG/5ML ORAL SYRUP 1 tsp by mouth every 4 hours as needed for cough GUAIFENESIN-CODEINE 33042587972 No Longe r Active Blaine HERNANDEZ Active PROMETHAZINE-CODEINE 6.25-10 MG/5ML ORAL SYRUP 1 tsp b y mouth every 6 hours if needed for cough PROMETHAZINE-CODEINE 02704459840 No Longer Active Blaine HERNANDEZ Active CHERATUSSIN AC 100-10 MG/5ML ORAL SYRUP 1 tsp by mouth every 4 hours as needed for cough GUAIFENESIN-CODEINE 40519321382 No Longe r Active Blaine HERNANDEZ Active ZITHROMAX Z-REYNA 250 MG ORAL TABLET 2 today, then 1 daily for 4 d ays AZITHROMYCIN 25981119587 No Longer Active Columba Raida Act nael ZITHROMAX 250 MG ORAL TABLET 2 po today, then 1 po q days 2-5 20 14/03/21 AZITHROMYCIN 02220437227 No Longer Active Carlton Hu MD Active ZITHROMAX Z-REYNA 250 MG ORAL TABLET 2 today, then 1 daily for 4 d ays AZITHROMYCIN 34251283993 No Longer Active Columba Raida Act nael AUGMENTIN 875-125 MG ORAL TABLET 1 po BID x 10 days 13/01/20 AMOXICILLIN-POT CLAVULANATE 51979006935 No Longer Active Diya De Guzman APRN Active ZITHROMAX 250 MG ORAL TABLET 2 po today, then 1 po q days 2-5 20 12/08/14 AZITHROMYCIN 73579375985 No Longer Active Carlton Hu MD Active TRAMADOL HCL 50 MG ORAL TABLET 1 po tid with ES Tylenol TRAMADOL HCL 24529469942 Active ALFREDO Holly Active PREMARIN 0.625 MG ORAL TABLET TAKE 1 TAB BY MOUTH DAILY ESTROGENS CONJUGATED 00773254965 No Longer Active Ridge Bess DO A ctive CYMBALTA 30 MG ORAL CAPSULE DELAYED RELEASE PARTICLES 1 cap by mouth daily DULOXETINE HCL 77450536297 No Longer Active Ridge tam DO Active AMOXICILLIN 500 MG ORAL CAPSULE 1 tab by mouth 3 times daily x 10 days AMOXICILLIN 45307101558 No Longer Active Carlton bustamante MD Active AMOXICILLIN 500 MG ORAL CAPSULE 1 tab by mouth 3 times daily x 10 days AMOXICILLIN 81751122786 No Longer Active Carlton bustamante MD Active PROMETHAZINE-CODEINE 6.25-10 MG/5ML ORAL SYRUP 1 tsp b y mouth every 8 hours prn cough PROMETHAZINE-CODEINE 79455840593 No Longer Acti ve Carlton Hu MD Active MEDROL 4 MG ORAL TABLET THERAPY PACK 6 pills x 1 day, then 5 pills x 1 day then 4 pills x 1 day, then 3 pills x 1 day, then 2 pills x 1 day, then 1 pill x 1 day, then stop METHYLPREDNISOLONE 22733058271 No Long er Active Perez Mora MD Active AZITHROMYCIN 250 MG ORAL TABLET 2 po qd x 1 day, then 1 po q d x 4 days AZITHROMYCIN 29150440303 No Longer Active Perez Ambriz MD Active SYMBICORT 160-4.5 MCG/ACT INHALATION AEROSOL 2 puffs bid wit h rinse after BUDESONIDE-FORMOTEROL FUMARATE 23352830556 N o Longer Active Perez Mora MD Active LYRICA 75 MG ORAL CAPSULE TAKE 1 CAPSULE BY MOUTH TWICE DAILY PREGABALIN 34008424733 No Longer Active Carlton Hu MD Acti ve TOPAMAX 25 MG ORAL TABLET 1 qHS x 1 week, then 1 BID x 1 week, then 1 qAM and 2 qHS x 1 week, then 2 BID (migraine prevention) T OPIRAMATE 31597032540 No Longer Active Jerica FUENTES Active TOPAMAX 50 MG ORAL TABLET take 1 tab po BID for migraines. 07/02 TOPIRAMATE 81272067609 No Longer Active Jerica FUENTES Active TRIAMCINOLONE ACETONIDE 0.1 % EXTERNAL CREAM apply three roger es daily prn rash TRIAMCINOLONE ACETONIDE 01322399175 No Longer Active Carlton Hu MD Active PAXIL 40 MG ORAL TABLET take 1 tab po qday for depression 0 PAROXETINE HCL 08906205851 Active Carlton Hu MD Active CHERATUSSIN AC 100-10 MG/5ML ORAL SYRUP 5ml po q6hr PRN Cough 20 13/04/14 GUAIFENESIN-CODEINE 66921384147 No Longer Active Carlton Hu MD Active MEDROL 4 MG ORAL TABLET THERAPY PACK 6 tabs on day 1, 5 tabs on day 2, 4 tabs on day 3, 3 tabs on day 4, 2 tabs on day 5, 1 tab on day 6 2013 METHYLPREDNISOLONE 69517478821 No Longer Active Perez Mora MD Active AZITHROMYCIN 250 MG ORAL TABLET 2 po qd x 1 day, then 1 po q d x 4 days AZITHROMYCIN 34443896895 No Longer Active Perez Ambriz MD Active PROPRANOLOL HCL 60 MG ORAL TABLET 1 PO Q D PROPRANOLOL HCL 79440098778 No Longer Active Perez Mora MD Activ e CHERATUSSIN AC 100-10 MG/5ML ORAL SYRUP take one tsp po Q 6h ours prn cough GUAIFENESIN-CODEINE 66676068225 No Longer Active Zia Mora MD Active AUGMENTIN 875-125 MG ORAL TABLET 1 tab by mouth twice daily with food AMOXICILLIN-POT CLAVULANATE 79963449627 No Longer Act nael Perez Mora MD Active CHERATUSSIN AC 100-10 MG/5ML ORAL SYRUP 1 tsp by mouth every 4 hours as needed for cough GUAIFENESIN-CODEINE 16993760737 No Longe r Active Hugo Restrepo MD Active ACETAMINOPHEN-CODEINE #3 300-30 MG ORAL TABLET 1 PO Q 4-6 HRS KS N PAIN ACETAMINOPHEN-CODEINE 40398120836 No Longer Active Hugo Restrepo MD Active LEVAQUIN 500 MG ORAL TABLET take one po QD LEVO FLOXACIN 15577324366 No Longer Active Griffin HERNANDEZ Active PREDNISONE 20 MG ORAL TABLET Take 3 tabs daily for 3 d ays, 2 tabs daily for 3 days, 1 tab daily for 3 days, 1/2 tab daily for 3 days 11/07 PREDNISONE 63603851022 No Longer Active Carlton Hu MD Acti ve AVELOX 400 MG ORAL TABLET 1 tab by mouth daily MOXIFLOXACIN HCL 96095125979 No Longer Active Carlton Hu MD Active CHERATUSSIN AC 100-10 MG/5ML ORAL SYRUP 1 tsp by mouth every 4 hours as needed for cough GUAIFENESIN-CODEINE 77461566688 No Longe r Active Hugo Restrepo MD Active AVELOX 400 MG ORAL TABLET 1 tab by mouth daily MOXIFLOXACIN HCL 92976540224 No Longer Active Marcy De La Rosa MD PhD Active TERBINAFINE HCL 250 MG ORAL TABLET 1 qDay T ERBINAFINE HCL 37499606040 No Longer Active Marcy De La Rosa MD PhD Active CHERATUSSIN AC 100-10 MG/5ML ORAL SYRUP 1 tsp by mouth every 4 hours as needed for cough GUAIFENESIN-CODEINE 14309688382 No Longe r Active Marcy De La Rosa MD PhD Active AVELOX 400 MG ORAL TABLET 1 tab by mouth daily MOXIFLOXACIN HCL 15956839653 No Longer Active Marcy De La Rosa MD PhD Active HYDROCODONE-ACETAMINOPHEN 5-325 MG ORAL TABLET 1 po q 6hr PRN co ugh HYDROCODONE-ACETAMINOPHEN 45089464056 No Longer Active Mracy De La Rosa MD PhD Active PREDNISONE 20 MG ORAL TABLET 2 tabs daily for 3 days, 1 tab daily for 3 days, 1/2 tab daily for 2 days PREDNISONE 62755894822 No Longer Active Carlton Hu MD Active CEFDINIR 300 MG ORAL CAPSULE by mouth twice a day 2011 CEFDINIR 50251980350 No Longer Active Carlton Hu MD Acti ve HYDROCHLOROTHIAZIDE 25 MG ORAL TABLET 1 TAB PO DAILY HYDROCHLOROTHIAZIDE 57564910943 Active Carlton Hu MD A ctive ACETAMINOPHEN-CODEINE #3 300-30 MG ORAL TABLET 1 tablet po q 4-6 hrs prn pain ACETAMINOPHEN-CODEINE 67481536857 No Longer Active Ridge Bess DO Active ZITHROMAX 250 MG ORAL TABLET 2 po today, then 1 po q days 2-5 20 03/07/07 AZITHROMYCIN 88642276377 No Longer Active Carlton Hu MD Active CHERATUSSIN AC 100-10 MG/5ML ORAL SYRUP take 1 tsp po q4-6 h ours prn cough GUAIFENESIN-CODEINE 67551557498 No Longer Active Jayden Hu MD Active ACETAMINOPHEN-CODEINE #3 300-30 MG ORAL TABLET 1 PO Q 4-6 HR PRN PAIN ACETAMINOPHEN-CODEINE 85695624678 No Longer Active Da raimundo Hu MD Active LORTAB 7.5-500 MG/15ML ORAL ELIXIR 7.5 ml po q 4 hour prn cough HYDROCODONE-ACETAMINOPHEN 73361459160 No Longer Active Carlton Hu MD Active PREDNISONE 20 MG ORAL TABLET 1 po bid 3 days, then 1 po q day 3 days PREDNISONE 72830807734 No Longer Active Carlton Hu MD Active CEFDINIR 300 MG ORAL CAPSULE by mouth twice a day 2011 CEFDINIR 09263037327 No Longer Active Carlton Hu MD Acti ve CEFDINIR 300 MG ORAL CAPSULE by mouth twice a day 2010 CEFDINIR 84848891238 No Longer Active Carlton Hu MD Acti ve CEFDINIR 300 MG ORAL CAPSULE by mouth twice a day 2010 CEFDINIR 39888284380 No Longer Active Carlton Hu MD Acti ve TESSALON PERLES 100 MG ORAL CAPSULE 1 tablet by mouth 3 times daily as needed for cough BENZONATATE 01404435801 No Longer Active Carlton Hu MD Active CEFDINIR 300 MG ORAL CAPSULE by mouth twice a day 2010 CEFDINIR 36870645296 No Longer Active Carlton Hu MD Acti ve ZITHROMAX Z-REYNA 250 MG ORAL TABLET 2 today, then 1 daily for 4 d ays AZITHROMYCIN 02774145774 No Longer Active Hugo Restrepo MD Active TESSALON PERLES 100 MG ORAL CAPSULE 1 tablet by mouth 3 times daily as needed for cough TESSALBARRON PERLES 100 MG ORAL CAPSULE 76965 7 BENZONATATE Inactive PREDNISONE 20 MG ORAL TABLET 1 po bid 3 days, then 1 po q day 3 days PREDNISONE 20 MG ORAL TABLET 934080 PREDNISONE [place] ctive LORTAB 7.5-500 MG/15ML ORAL ELIXIR 7.5 [...] cough CHERATUSSIN AC 100-10 MG/5ML ORAL SYRUP 532001 GUAIFENESIN-CODEINE Inactive ACETAMINOPHEN-CODEINE #3 300-30 MG ORAL TABLET 1 tablet po q 4-6 hrs prn pain ACETAMINOPHEN-CODEINE #3 300-30 MG ORAL TABLET ACETAMINOPHEN-CODEINE Inactive HYDROCODONE-ACETAMINOPHEN 5-325 MG ORAL TABLET 1 po q 6hr PRN co ugh HYDROCODONE-ACETAMINOPHEN 5-325 MG ORAL TABLET 801362 HYDROCODONE-ACETAMINOPHEN Inactive AVELOX 400 MG ORAL TABLET 1 tab by mouth daily AVELOX 400 MG ORAL TABLET 057824 MOXIFLOXACIN HCL Inactive CHERATUSSIN AC 100-10 MG/5ML ORAL SYRUP 1 tsp by mouth every 4 hours as needed for cough CHERATUSSIN AC 100-10 MG/5ML ORAL SYRUP 9 27684 GUAIFENESIN-CODEINE Inactive TERBINAFINE HCL 250 MG ORAL TABLET 1 qDay 07/08 TERBINAFINE HCL 250 MG ORAL TABLET 204399 TERBINAFINE HCL Inactive CHERATUSSIN AC 100-10 MG/5ML ORAL SYRUP 1 tsp by mouth every 4 hours as needed for cough CHERATUSSIN AC 100-10 MG/5ML ORAL SYRUP 9 28527 GUAIFENESIN-CODEINE Inactive ACETAMINOPHEN-CODEINE #3 300-30 MG ORAL TABLET 1 PO Q 4-6 HRS KS N PAIN ACETAMINOPHEN-CODEINE #3 300-30 MG ORAL TABLET ACETAMINOPHEN-CODEINE Inactive CHERATUSSIN AC 100-10 MG/5ML ORAL SYRUP 1 tsp by mouth every 4 hours as needed for cough CHERATUSSIN AC 100-10 MG/5ML ORAL SYRUP 9 24362 GUAIFENESIN-CODEINE Inactive AUGMENTIN 875-125 MG ORAL TABLET 1 tab by mouth twice daily with food AUGMENTIN 875-125 MG ORAL TABLET AMOXICIL MADELINE-POT CLAVULANATE Inactive CHERATUSSIN AC 100-10 MG/5ML ORAL SYRUP take one tsp po Q 6h ours prn cough CHERATUSSIN AC 100-10 MG/5ML ORAL SYRUP 112389 GUAIFENESIN-CODEINE Inactive PROPRANOLOL HCL 60 MG ORAL TABLET 1 PO Q D PROPRANOLOL HCL 60 MG ORAL TABLET 945428 PROPRANOLOL HCL Inactive TOPAMAX 50 MG ORAL TABLET take 1 tab po BID for migraines. 07/02 TOPAMAX 50 MG ORAL TABLET 796124 TOPIRAMATE Inacti ve TOPAMAX 25 MG ORAL TABLET 1 qHS x 1 week, then 1 BID x 1 week, then 1 qAM and 2 qHS x 1 week, then 2 BID (migraine prevention) TOPAMAX 25 MG ORAL TABLET 559815 TOPIRAMATE Inactive LYRICA 75 MG ORAL CAPSULE TAKE 1 CAPSULE BY MOUTH TWICE DAILY LYRICA 75 MG ORAL CAPSULE PREGABALIN Inactive SYMBICORT 160-4.5 MCG/ACT INHALATION AEROSOL 2 puffs bid wit h rinse after SYMBICORT 160-4.5 MCG/ACT INHALATION AEROSOL BUDESONIDE- FORMOTEROL FUMARATE Inactive PROMETHAZINE-CODEINE 6.25-10 MG/5ML ORAL SYRUP 1 tsp b y mouth every 8 hours prn cough PROMETHAZINE-CODEINE 6.25-10 MG/ 5ML ORAL SYRUP 351641 PROMETHAZINE-CODEINE Inactive CYMBALTA 30 MG ORAL CAPSULE DELAYED RELEASE PARTICLES 1 cap by mouth daily CYMBALTA 30 MG ORAL CAPSULE DELAYED RELE ASE PARTICLES 193956 DULOXETINE HCL Inactive PREMARIN 0.625 MG ORAL TABLET TAKE 1 TAB BY MOUTH DAILY PREMARIN 0.625 MG ORAL TABLET ESTROGENS CONJUGATED Inactive CHERATUSSIN AC 100-10 MG/5ML ORAL SYRUP 1 tsp by mouth every 4 hours as needed for cough CHERATUSSIN AC 100-10 MG/5ML ORAL SYRUP 9 83274 GUAIFENESIN-CODEINE Inactive PROMETHAZINE-CODEINE 6.25-10 MG/5ML ORAL SYRUP 1 tsp b y mouth every 6 hours if needed for cough PROMETHAZINE-CODEINE 6.25-10 MG/5ML ORAL SYRUP 209597 PROMETHAZINE-CODEINE Inactive CHERATUSSIN AC 100-10 MG/5ML ORAL SYRUP 1 tsp by mouth every 4 hours as needed for cough CHERATUSSIN AC 100-10 MG/5ML ORAL SYRUP 9 90674 GUAIFENESIN-CODEINE Inactive FLUTICASONE PROPIONATE 50 MCG/ACT NASAL SUSPENSION 1 t o 2 sprays each nostril daily FLUTICASONE PROPIONATE 50 MCG/AC T NASAL SUSPENSION 0971497 FLUTICASONE PROPIONATE Inactive PREDNISONE 20 MG ORAL TABLET 3 tab PO qd x 2d, 2 tab P O qd x 2d, 1 tab PO qd x 2d, 1/2 tab PO qd x 2d PREDNISONE 20 MG ORAL TAB LET 782898 PREDNISONE Inactive LEVOFLOXACIN 500 MG ORAL TABLET 1 tab PO daily x 10 days LEVOFLOXACIN 500 MG ORAL TABLET 478654 LEVOFLOXACIN Inactive CYCLOBENZAPRINE HCL 10 MG ORAL TABLET 1 tablet by mouth BID prn had pain CYCLOBENZAPRINE HCL 10 MG ORAL TABLET 929521 CYCLOBENZAPRINE HCL Inactive ZOCOR 40 MG ORAL [...] FLUTICASONE PROPIO EFE 50 MCG/ACT NASAL SUSPENSION 3498396 FLUTICASONE PROPIONATE Inactive TUSSIONEX PENNKINETIC ER 10-8 [...] three days PREDNISONE 20 MG ORAL TABLET 492178 PREDNIS ONE Inactive PROAIR HFA 108 (90 BASE) MCG/ACT INHALATION AEROSOL SO LUTION 2 puffs four times a day as needed PROAIR HFA 108 (90 B ASE) MCG/ACT INHALATION AEROSOL SOLUTION ALBUTEROL SULFATE Inactive PREDNISONE 20 MG ORAL TABLET two tabs by mouth today, then one tab by mouth days two and three and four PREDNISONE 20 MG ORAL TAB LET 296090 PREDNISONE Inactive TUSSIONEX PENNKINETIC ER 10-8 MG/5ML [...] bid 04/20 TOPAMAX 100 MG ORAL TABLET 318117 TOPIRAMATE Inactive CYMBALTA 30 MG ORAL CAPSULE DELAYED RELEASE PARTICLES 1 cap by mouth daily for depression CYMBALTA 30 MG ORAL CAPSULE DELAYED RELEASE PARTICLES 149079 DULOXETINE HCL Inactive ZITHROMAX Z-REYNA 250 MG ORAL TABLET 2 today, then 1 daily for 4 d ays ZITHROMAX Z-REYNA 250 MG ORAL TABLET 540780 AZITHROMYCIN Inactive CEFDINIR 300 MG ORAL CAPSULE by mouth twice a day 2010 CEFDINIR 300 MG ORAL CAPSULE 471994 CEFDINIR Inactive CEFDINIR 300 MG ORAL CAPSULE by mouth twice a day 2010 CEFDINIR 300 MG ORAL CAPSULE 329303 CEFDINIR Inactive CEFDINIR 300 MG ORAL CAPSULE by mouth twice a day 2010 CEFDINIR 300 MG ORAL CAPSULE 676961 CEFDINIR Inactive CEFDINIR 300 MG ORAL CAPSULE by mouth twice a day 2011 CEFDINIR 300 MG ORAL CAPSULE 959052 CEFDINIR Inactive ZITHROMAX 250 MG ORAL TABLET 2 po today, then 1 po q days 2-5 03/07/07 ZITHROMAX 250 MG ORAL TABLET 448038 AZITHROMYCIN [place] ctive CEFDINIR 300 MG ORAL CAPSULE by mouth twice a day 2011 CEFDINIR 300 MG ORAL CAPSULE 135208 CEFDINIR Inactive PREDNISONE 20 MG ORAL TABLET 2 tabs daily for 3 days, 1 tab daily for 3 days, 1/2 tab daily for 2 days PREDNISONE 20 MG ORAL T ABLET 416016 PREDNISONE Inactive AVELOX 400 MG ORAL TABLET 1 tab by mouth daily AVELOX 400 MG ORAL TABLET 229120 MOXIFLOXACIN HCL Inactive AVELOX 400 MG ORAL TABLET 1 tab by mouth daily AVELOX 400 MG ORAL TABLET 474072 MOXIFLOXACIN HCL Inactive PREDNISONE 20 MG ORAL TABLET Take 3 tabs daily for 3 d ays, 2 tabs daily for 3 days, 1 tab daily for 3 days, 1/2 tab daily for 3 days 11/07 PREDNISONE 20 MG ORAL TABLET 909783 PREDNISONE Inactive LEVAQUIN 500 MG ORAL TABLET take one po QD LEVAQUIN 500 MG ORAL TABLET 502886 LEVOFLOXACIN Inactive AZITHROMYCIN 250 MG ORAL TABLET 2 po qd x 1 day, then 1 po q d x 4 days AZITHROMYCIN 250 MG ORAL TABLET 284491 AZITHROMY GIOVANNI Inactive MEDROL 4 MG ORAL TABLET THERAPY PACK 6 tabs on day 1, 5 tabs on day 2, 4 tabs on day 3, 3 tabs on day 4, 2 tabs on day 5, 1 tab on day 6 2013 MEDROL 4 MG ORAL TABLET THERAPY PACK 074367 METHYLPREDNISOLONE [place] ctive CHERATUSSIN AC 100-10 MG/5ML ORAL SYRUP 5ml po q6hr PRN Cough 20 13/04/14 CHERATUSSIN AC 100-10 MG/5ML ORAL SYRUP 383066 GUAIFENE SIN-CODEINE Inactive TRIAMCINOLONE ACETONIDE 0.1 % EXTERNAL CREAM apply three roger es daily prn rash TRIAMCINOLONE ACETONIDE 0.1 % EXTERNAL CREAM 101 4314 TRIAMCINOLONE ACETONIDE Inactive AZITHROMYCIN 250 MG ORAL TABLET 2 po qd x 1 day, then 1 po q d x 4 days AZITHROMYCIN 250 MG ORAL TABLET 263232 AZITHROMY GIOVANNI Inactive MEDROL 4 MG ORAL TABLET THERAPY PACK 6 pills x 1 day, then 5 pills x 1 day then 4 pills x 1 day, then 3 pills x 1 day, then 2 pills x 1 day, then 1 pill x 1 day, then stop MEDROL 4 MG ORAL TABLET THERAPY PACK [id number] METHYLPREDNISOLONE Inactive AMOXICILLIN 500 MG ORAL CAPSULE 1 tab by mouth 3 times daily x 10 days AMOXICILLIN 500 MG ORAL CAPSULE 255815 AMOXICILL IN Inactive AMOXICILLIN 500 MG ORAL CAPSULE 1 tab by mouth 3 times daily x 10 days AMOXICILLIN 500 MG ORAL CAPSULE 805017 AMOXICILL IN Inactive ZITHROMAX 250 MG ORAL TABLET 2 po today, then 1 po q days 2-5 20 12/08/14 ZITHROMAX 250 MG ORAL TABLET [id number] AZITHROMYCIN Greer ctive AUGMENTIN 875-125 MG ORAL TABLET 1 po BID x 10 days 20 13/01/20 AUGMENTIN 875-125 MG ORAL TABLET AMOXICILLIN-POT CLAVULANATE Inactive ZITHROMAX Z-REYNA 250 MG ORAL TABLET 2 today, then 1 daily for 4 d ays ZITHROMAX Z-REYNA 250 MG ORAL TABLET 005017 AZITHROMYCIN Inactive ZITHROMAX 250 MG ORAL TABLET 2 po today, then 1 po q days 2-5 20 14/03/21 ZITHROMAX 250 MG ORAL TABLET 392784 AZITHROMYCIN Greer ctive ZITHROMAX Z-REYNA 250 MG ORAL TABLET 2 today, then 1 daily for 4 d ays ZITHROMAX Z-REYNA 250 MG ORAL TABLET 692638 AZITHROMYCIN Inactive CEFDINIR 300 MG ORAL CAPSULE 1 po BID x 10 days 06/21 CEFDINIR 300 MG ORAL CAPSULE 892028 CEFDINIR Inactive ZITHROMAX 250 MG ORAL TABLET 2 po today, then 1 po q days 2-5 20 13/08/10 ZITHROMAX 250 MG ORAL TABLET 015602 AZ[facility]ROMYCIN [facility] LEVAQUIN 500 MG ORAL TABLET 1 tablet by mouth daily 20 13/09/24 LEVAQUIN 500 MG ORAL TABLET 19971102 LEVOFLOXACIN Inactive SINGULAIR 10 MG ORAL TABLET 1 po qday for allergies 20 14/01/12 SINGULAIR 10 MG ORAL TABLET 20010504 MONTELUKAST SODIUM Inactive AMOXICILLIN 500 MG ORAL CAPSULE 2 po BID x 10 days 201 09/29/08 AMOXICILLIN 500 MG ORAL CAPSULE 854025 AMOXICILLIN Inactive PREDNISONE 20 MG ORAL TABLET 2 tabs daily for 3 days, 1 tab daily for 3 days, 1/2 tab daily for 2 days PREDNISONE 20 MG ORAL T ABLET 989030 PREDNISONE Inactive ZITHROMAX Z-REYNA 250 MG ORAL TABLET 2 today, then 1 daily for 4 d ays ZITHROMAX Z-REYNA 250 MG ORAL TABLET 308878 AZITHROMYCIN Inactive PREDNISONE 20 MG ORAL TABLET 2 tabs daily for 3 days, 1 tab daily for 3 days, 1/2 tab daily for 2 days PREDNISONE 20 MG ORAL T ABLET 605972 PREDNISONE Inactive ZITHROMAX 250 MG ORAL TABLET 2 po today, then 1 po q days 2-5 20 14/09/04 ZITHROMAX 250 MG ORAL TABLET 870244 [facility]YCIN [facility] AMOXICILLIN 500 MG ORAL CAPSULE 1 cap by mouth three times a day AMOXICILLIN 500 MG ORAL CAPSULE 200832 AMOXICILLIN Inactive TERBINAFINE HCL 250 MG ORAL TABLET 1 qDay for nail fungus 7 TERBINAFINE HCL 250 MG ORAL TABLET 892353 TERBINAFINE HCL Inact nael AUGMENTIN 875-125 MG ORAL TABLET 1 po BID x 10 days 16/03/22 AUGMENTIN 875-125 MG ORAL TABLET AMOXICILLIN-POT CLAVULANATE Inactive PREDNISONE 20 MG ORAL TABLET 2 po qd x 5 days PREDNISONE 20 MG ORAL TABLET 219783 PREDNISONE Inactive AZITHROMYCIN 250 MG ORAL TABLET 2 po qd x 1 day, then 1 po q d x 4 days AZITHROMYCIN 250 MG ORAL TABLET 725752 AZITHROMY GIOVANNI Inactive PREDNISONE 50 MG ORAL TABLET Take 50 mg dialy for 6 day s 7 PREDNISONE 50 MG ORAL TABLET 530955 PREDNISONE Inactive AUGMENTIN 875-125 MG ORAL TABLET 1 po BID x 10 days 20 18/04/16 AUGMENTIN 875-125 MG ORAL TABLET AMOXICILLIN-POT CLAVULANATE Inactive DOXYCYCLINE HYCLATE 100 MG ORAL CAPSULE 1 cap by mouth twice latasha ly DOXYCYCLINE HYCLATE 100 MG ORAL CAPSULE 1407022 DOXYCYCL INE HYCLATE Inactive PREDNISONE 20 MG ORAL TABLET Take 2 tabs day 1 and 2 and 1 t ab days 3 and 4 PREDNISONE 20 MG ORAL TABLET 926749 PREDNISONE Inactive Vital Signs Date Name Value [...] - Chem istry sodium, serum 139 mmol/L 649-125 7117/10/12 potassium, serum 3.8 mmol/L 3.5-5.2 chloride, serum [...] negative Encounters Code Encounter Date Provider Facility CPT-49323 Level 3 Est. Patient 16:53:54 CDT May haas MD [facility]-05902 [id number] Vst-Est Level IV 08:41:[address] Carlton Hu MD [facility]-32252 Level 3 Est. Patient 09:46:49 WHITE SPOOLER David ilon [facility]-89312 [id number]-Sel Vst-Est Level III 11:12:16 CDT Yanet Bess DO [facility]-58740 Level 3 Est. Patient 11:34:49 WHITE SPOOLER Perez Mora MD [facility]-44322 Level 4 Est. Patient 09:51:32 WHITE SPOOLER Carlton rich MD [facility]-15673 Level 3 Est. Patient 10:26:00 WHITE SPOOLER Elise stephenson MENTAL HEALTH SPECIALIST [facility]-26192 Level 3 Est. Patient 13:35:41 WHITE SPOOLER Carlton rich MD [facility]-10121 Level 3 Est. Patient 10:03:52 WHITE SPOOLER Carlton rich MD [facility]-95776 Level 3 Est. Patient 12:17:50 CDT Hugo Restrepo MD [facility]-09409 Level 3 Est. Patient 13:42:38 CDT Elise Are [facility] CPT-88975 Level 3 Est. Patient 13:23:51 CDT Diya Mariana cobian [facility] CPT-64825 Level 3 Est. Patient 14:22:19 WHITE SPOOLER Diya cobian [facility] CPT-33822 Level 3 Est. Patient 10:11:46 CDT Carlton rich MD [facility] CPT-71156 Level 3 Est. Patient 17:29:43 CDT Elise Are [facility] CPT-01134 Level 3 Est. Patient 11:58:06 CDT Elise Are [facility] CPT-27029 Level 4 Est. Patient 14:36:51 CDT Carlton rich MD [facility] CPT-49633 Level 3 Est. Patient 18:16:00 WHITE SPOOLER Blaine HERNANDEZ [facility] CPT-84385 Level 3 Est. Patient 09:45:49 WHITE SPOOLER Carlton rich MD [facility] CPT-02870 Level 3 Est. Patient 13:19:20 CDT Carlton rich MD [facility] CPT-44356 Level 3 Est. Patient 13:06:43 CDT Ridge tam DO [facility] CPT-55170 Level 3 Est. Patient 10:03:07 CDT Perez Mora MD [facility] CPT-84706 Level 3 Est. Patient 19:50:35 WHITE SPOOLER Carlton rich MD [facility] CPT-95281 Level 4 Est. Patient 18:05:01 WHITE SPOOLER Carlton rich MD [facility] CPT-10578 Level 3 Est. Patient 10:45:55 WHITE SPOOLER Hugo Restrepo MD [facility] CPT-66215 Level 3 Est. Patient 14:12:49 CDT Griffin HERNANDEZ [facility] CPT-17844 Level 3 Est. Patient 17:37:24 CDT Carlton rich MD [facility] CPT-18376 Level 3 Est. Patient 16:51:54 CDT Carlton rich MD [facility] CPT-19752 Level 3 Est. Patient 12:18:11 CDT Hugo Restrepo MD [facility] CPT-76434 Level 3 Est. Patient 11:30:25 CDT Marcy cirsostomo MD PhD [facility] CPT-37435 Level 3 Est. Patient 12:00:47 WHITE SPOOLER Carlton rich MD [facility] CPT-67395 Level 3 Est. Patient 16:31:06 WHITE SPOOLER Carlton rich MD [facility] CPT-97496 Level 3 Est. Patient 16:23:24 WHITE SPOOLER Ridge tam DO [facility] CPT-01529 Level 3 Est. Patient 12:34:12 CDT Carlton rich MD [facility] CPT-77300 Level 2 Est. Patient 15:43:33 CDT Robi armstrong MD [facility] CPT-04241 Level 4 Est. Patient 14:04:44 CDT Carlton rich MD [facility] CPT-48938 Level 3 Est. Patient 05:47:59 CDT Ridge tam [facility] CPT-53326 Level 3 Est. Patient 13:12:53 WHITE SPOOLER Carlton rich MD [facility] CPT-81161 Level 3 Est. Patient 14:26:53 CDT Hugo Restrepo MD [facility] Procedures Code Procedure Name Date Entry Date Standard Desc ription CPT-000 Give Appropriate Flu Vaccine 14:14:31 CDT 2 CPT-J1040 Depo Medrol 80 mg (Methyl Prednisolone A cetate) 10:42:44 CDT CPT-J1100 Decadron 8mg (Dexamethasone) 10:42:44 CDT 2 CPT-J0696 Rocephin 1gm Inj Solr 14:32:13 CDT CPT-J1020 Depo Medrol 60 mg (Methyl Prednisolone A cetate) 14:32:13 CDT CPT-J1100 Decadron 6mg (Dexamethasone) 14:32:13 CDT 2 CPT-15156 Hip bilat min 2V w AP pelvis 13:16:20 CDT 2 CPT-18572 Pelvis only 13:07:33 CDT CPT-13455 Spec Collection and Handling Fee 11:25:12 C DT CPT-36682 Fluzone Quadrivalent Intramuscular Suspe nsion 0.5 ML 14:31:55 CDT CPT-49676 Abx/Therapy Injection 13:28:47 WHITE SPOOLER CPT-J2930 Solu Medrol 125 mg (Methyl Prednisolone Sodium Succinate) 12:00:47 WHITE SPOOLER CPT-91375 Venipuncture Draw Fee 11:33:31 CDT CPT-96637 EKG Trac and Interp 11:21:09 CDT CPT-95137 Chest 2V Frontal and Lat 11:21:09 CDT 12/15 CPT-96806 Venipuncture Draw Fee 08:02:34 CDT CPT-66280 Chest 2V Frontal and Lat 05:47:59 CDT 06/05
--- OUTSIDE RECORDS SUMMARY | 2019-10-08 09:04 | XMS REPORT | Clinical Summary ---
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 CYMBALTA 30 MG ORAL CAPSULE DELAYED RELEASE PARTICLES 1 cap by mouth daily for depression DULOXETINE HCL 25994233483 No Longer Active Carlton Hu MD Active CYMBALTA 60 MG ORAL CAPSULE DELAYED RELEASE PARTICLES 1 cap by mouth daily for mood and pain DULOXETINE HCL 20310597628 Active Carlton Hu MD Active TUSSIONEX PENNKINETIC ER 10-8 MG/5ML ORAL SUSPENSION E XTENDED RELEASE 5ml po q12hr PRN Cough HYDROCOD POLST-CHLORPHEN POLST 73535547066 Active David Marianne METAL FITTER Active PREDNISONE 20 MG ORAL TABLET Take 2 tabs day 1 and 2 and 1 t ab days 3 and 4 PREDNISONE 81977594970 No Longer Active David Marianne METAL FITTER Active DOXYCYCLINE HYCLATE 100 MG ORAL CAPSULE 1 cap by mouth twice latasha ly DOXYCYCLINE HYCLATE 39636729240 No Longer Active David Marianne METAL FITTER Active TOPAMAX 100 MG ORAL TABLET Take 1 tablet po bid TOPIRAMATE 47473417056 No Longer Active David Marianne METAL FITTER Active TUSSIONEX PENNKINETIC ER 10-8 MG/5ML ORAL SUSPENSION E XTENDED RELEASE 5ml po q12hr PRN Cough HYDROCOD POLST-CHLORPHEN POLST 5 2608903233 No Longer Active David Marianne METAL FITTER Active AUGMENTIN 875-125 MG ORAL TABLET 1 po BID x 10 days 18/04/16 AMOXICILLIN-POT CLAVULANATE 53812719133 No Longer Active David Marianne METAL FITTER Active PREDNISONE 50 MG ORAL TABLET Take 50 mg dialy for 6 day s 7 PREDNISONE 67286969795 No Longer Active David Marianne METAL FITTER Active TUSSIONEX PENNKINETIC ER 10-8 MG/5ML ORAL SUSPENSION E XTENDED RELEASE 5ml po q12hr PRN Cough HYDROCOD POLST-CHLORPHEN POLST 5 7309163119 No Longer Active Cherelle Torres RN Active PREDNISONE 20 MG ORAL TABLET two tabs by mouth today, then one tab by mouth days two and three and four PREDNISONE 45171046114 No Lo nger Active Cherelle Torres RN Active AZITHROMYCIN 250 MG ORAL TABLET 2 po qd x 1 day, then 1 po q d x 4 days AZITHROMYCIN 69294990695 No Longer Active Ridge Bess DO Active PREDNISONE 20 MG ORAL TABLET 2 po qd x 5 days P REDNISONE 07962150274 No Longer Active Perez Mora MD Active PROAIR HFA 108 (90 BASE) MCG/ACT INHALATION AEROSOL SO LUTION 2 puffs four times a day as needed ALBUTEROL SULFATE 23633672963 No Long er Active Becky Cuellar RMA Active ASPIRIN 81 MG ORAL TABLET 1 po qd ASPIRIN 55801875753 Active Carlton Hu MD Active PREDNISONE 20 MG ORAL TABLET 1 tab twice daily for 3 d ay, then one daily for three days PREDNISONE 90518465610 No Longer Active Carlton Hu MD Active AUGMENTIN 875-125 MG ORAL TABLET 1 po BID x 10 days 16/03/22 AMOXICILLIN-POT CLAVULANATE 46179438904 No Longer Active Elise Garcia APRN Active TERBINAFINE HCL 250 MG ORAL TABLET 1 qDay for nail fungus 7 TERBINAFINE HCL 31548281422 No Longer Active Carlton Hu MD A ctive AMOXICILLIN 500 MG ORAL CAPSULE 1 cap by mouth three times a day AMOXICILLIN 78167647348 No Longer Active Carlton Hu MD Active ELMIRON 100 MG ORAL CAPSULE 2 tablets in the am and 1 tablet at hs PENTOSAN POLYSULFATE SODIUM 21240751943 No Longer Active Robert Hu MD Active MUCINEX D 60-600 MG ORAL TABLET EXTENDED RELEASE 12 HOUR 1 t ab po q am PSEUDOEPHEDRINE-GUAIFENESIN 96958030842 No Longer Act nael Carlton Hu MD Active MUCINEX DM MAXIMUM STRENGTH 60-1200 MG ORAL TABLET EXT ENDED RELEASE 12 HOUR 1 tab po q am DEXTROMETHORPHAN-GUAIFENESIN 93520412548 No Longer Active Carlton Hu MD Active TUSSIONEX PENNKINETIC ER 10-8 MG/5ML ORAL SUSPENSION E XTENDED RELEASE 5ml po q12hr PRN Cough HYDROCOD POLST-CHLORPHEN POLST 5 0923681818 No Longer Active Carlton Hu MD Active POTASSIUM CHLORIDE ER 20 MEQ ORAL TABLET EXTENDED RELE ASE Take 1 by mouth 4 times daily for 7 days POTASSIUM CHLORIDE 17070181812 No Longer Active Carlton Hu MD Active ZITHROMAX 250 MG ORAL TABLET 2 po today, then 1 po q days 2-5 20 14/09/04 AZITHROMYCIN 77071838381 No Longer Active Elise Garcia APRN Active TUSSIONEX PENNKINETIC ER 10-8 MG/5ML ORAL SUSPENSION E XTENDED RELEASE 5 ml twice a day as needed for cough HYDROCOD POLST-CHLORPH EN POLST 58705355263 No Longer Active Elise Garcia APRN Active MONTELUKAST SODIUM 10 MG ORAL TABLET 1 po daily for Allergy MONTELUKAST SODIUM 98427046746 Active Carlton Hu MD Ac tive TUSSIONEX PENNKINETIC ER 10-8 MG/5ML ORAL SUSPENSION E XTENDED RELEASE 5ml po q12hr PRN Cough HYDROCOD POLST-CHLORPHEN POLST 5 6320904280 No Longer Active Hugo Restrepo MD Active GABAPENTIN 100 MG ORAL CAPSULE 1 po BID for fibromyalgia GABAPENTIN 24730866132 Active ALFREDO Holly Active LYRICA 100 MG ORAL CAPSULE Take 1 tab po BID for fibromyalgia 20 11/08/21 PREGABALIN 78379954912 No Longer Active Elise Garcia APRN A ctive PREDNISONE 20 MG ORAL TABLET 2 tabs daily for 3 days, 1 tab daily for 3 days, 1/2 tab daily for 2 days PREDNISONE 83217723231 No Longer Active Diya De Guzman APRN Active TUSSIONEX PENNKINETIC ER 10-8 MG/5ML ORAL SUSPENSION E XTENDED RELEASE 5 mL PO q 12 hrs PRN cough HYDROCOD POLST-CHLORPHEN POLST 963224 23399 No Longer Active Jiriley De Guzman APRN Active FLUTICASONE PROPIONATE 50 MCG/ACT NASAL SUSPENSION 2 s prays each nostril daily until bottle is empty FLUTICASONE PROPIONATE 945408874 99 No Longer Active Diya De Guzman APRN Active ASMANEX 60 METERED DOSES 220 MCG/INH INHALATION AEROSO L POWDER BREATH ACTIVATED 1 puff bid with rinse after MOMETASONE FUROATE 1461268 4102 No Longer Active Diya De Guzman APRN Active ZITHROMAX Z-REYNA 250 MG ORAL TABLET 2 today, then 1 daily for 4 d ays AZITHROMYCIN 13209395115 No Longer Active Elise Garcia APRN Active TUSSIONEX PENNKINETIC ER 10-8 MG/5ML ORAL SUSPENSION E XTENDED RELEASE 5ml po q12hr PRN Cough HYDROCOD POLST-CHLORPHEN POLST 5 0533514650 No Longer Active Elise Garcia APRN Active PREDNISONE 20 MG ORAL TABLET 2 tabs daily for 3 days, 1 tab daily for 3 days, 1/2 tab daily for 2 days PREDNISONE 51942177963 No Longer Active Diya De Guzman APRN Active AMOXICILLIN 500 MG ORAL CAPSULE 2 po BID x 10 days 201 09/29/08 AMOXICILLIN 62876011759 No Longer Active Diya De Guzman APRN Act nael SINGULAIR 10 MG ORAL TABLET 1 po qday for allergies 20 14/01/12 MONTELUKAST SODIUM 44942749603 No Longer Active Carlton Hu MD Active LEVAQUIN 500 MG ORAL TABLET 1 tablet by mouth daily 20 13/09/24 LEVOFLOXACIN 06886505585 No Longer Active Carlton Hu MD Acti ve FLUTICASONE PROPIONATE 50 MCG/ACT NASAL SUSPENSION 2 s prays each nostril daily for 2 weeks, then 1 spray each nostril daily. FLUTICASONE PROPIONATE 89864785490 Active Carlton Hu MD Active ZITHROMAX 250 MG ORAL TABLET 2 po today, then 1 po q days 2-5 20 13/08/10 AZITHROMYCIN 13820244761 No Longer Active Elise Garcia APRN Active XANAX 0.5 MG ORAL TABLET one tablet by mouth daily prn anxiety 2015 ALPRAZOLAM 99631796394 Active ALFREDO Holly Active CEFDINIR 300 MG ORAL CAPSULE 1 po BID x 10 days CEFDINIR 13549013165 No Longer Active Carlton Hu MD Active ZOCOR 40 MG ORAL TABLET 1 tab by mouth daily SI MVASTATIN 97230894913 No Longer Active Carlton Hu MD Active CYCLOBENZAPRINE HCL 10 MG ORAL TABLET 1 tablet by mouth BID prn had pain CYCLOBENZAPRINE HCL 67060787963 No Longer Active Jayden Hu MD Active LEVOFLOXACIN 500 MG ORAL TABLET 1 tab PO daily x 10 days LEVOFLOXACIN 19724387827 No Longer Active Carlton Hu MD Acti ve PREDNISONE 20 MG ORAL TABLET 3 tab PO qd x 2d, 2 tab P O qd x 2d, 1 tab PO qd x 2d, 1/2 tab PO qd x 2d PREDNISONE 84559678211 No Lo nger Active Carlton Hu MD Active FLUTICASONE PROPIONATE 50 MCG/ACT NASAL SUSPENSION 1 t o 2 sprays each nostril daily FLUTICASONE PROPIONATE 46537566006 No Longer Ac tive Blaine HERNANDEZ Active CHERATUSSIN AC 100-10 MG/5ML ORAL SYRUP 1 tsp by mouth every 4 hours as needed for cough GUAIFENESIN-CODEINE 02493386252 No Longe r Active Blaine HERNANDEZ Active PROMETHAZINE-CODEINE 6.25-10 MG/5ML ORAL SYRUP 1 tsp b y mouth every 6 hours if needed for cough PROMETHAZINE-CODEINE 93709519233 No Longer Active Blaine HERNANDEZ Active CHERATUSSIN AC 100-10 MG/5ML ORAL SYRUP 1 tsp by mouth every 4 hours as needed for cough GUAIFENESIN-CODEINE 98826289293 No Longe r Active Blaine HERNANDEZ Active ZITHROMAX Z-REYNA 250 MG ORAL TABLET 2 today, then 1 daily for 4 d ays AZITHROMYCIN 20479204653 No Longer Active Columba Raida Act nael ZITHROMAX 250 MG ORAL TABLET 2 po today, then 1 po q days 2-5 20 14/03/21 AZITHROMYCIN 36344377614 No Longer Active Carlton Hu MD Active ZITHROMAX Z-REYNA 250 MG ORAL TABLET 2 today, then 1 daily for 4 d ays AZITHROMYCIN 97024436317 No Longer Active Columba Raida Act nael AUGMENTIN 875-125 MG ORAL TABLET 1 po BID x 10 days 13/01/20 AMOXICILLIN-POT CLAVULANATE 47136712980 No Longer Active Diya De Guzman APRN Active ZITHROMAX 250 MG ORAL TABLET 2 po today, then 1 po q days 2-5 20 12/08/14 AZITHROMYCIN 41449726448 No Longer Active Carlton Hu MD Active TRAMADOL HCL 50 MG ORAL TABLET 1 po tid with ES Tylenol TRAMADOL HCL 87123186686 Active ALFREDO Holly Active PREMARIN 0.625 MG ORAL TABLET TAKE 1 TAB BY MOUTH DAILY ESTROGENS CONJUGATED 89530445850 No Longer Active Ridge Bess DO A ctive CYMBALTA 30 MG ORAL CAPSULE DELAYED RELEASE PARTICLES 1 cap by mouth daily DULOXETINE HCL 26741824158 No Longer Active Ridge tam DO Active AMOXICILLIN 500 MG ORAL CAPSULE 1 tab by mouth 3 times daily x 10 days AMOXICILLIN 04292445473 No Longer Active Carlton bustamante MD Active AMOXICILLIN 500 MG ORAL CAPSULE 1 tab by mouth 3 times daily x 10 days AMOXICILLIN 21576551396 No Longer Active Carlton bustamante MD Active PROMETHAZINE-CODEINE 6.25-10 MG/5ML ORAL SYRUP 1 tsp b y mouth every 8 hours prn cough PROMETHAZINE-CODEINE 05361082222 No Longer Acti ve Carlton Hu MD Active MEDROL 4 MG ORAL TABLET THERAPY PACK 6 pills x 1 day, then 5 pills x 1 day then 4 pills x 1 day, then 3 pills x 1 day, then 2 pills x 1 day, then 1 pill x 1 day, then stop METHYLPREDNISOLONE 17151189115 No Long er Active Perez Mora MD Active AZITHROMYCIN 250 MG ORAL TABLET 2 po qd x 1 day, then 1 po q d x 4 days AZITHROMYCIN 68963848915 No Longer Active Perez Ambriz MD Active SYMBICORT 160-4.5 MCG/ACT INHALATION AEROSOL 2 puffs bid wit h rinse after BUDESONIDE-FORMOTEROL FUMARATE 50074767471 N o Longer Active Perez Mora MD Active LYRICA 75 MG ORAL CAPSULE TAKE 1 CAPSULE BY MOUTH TWICE DAILY PREGABALIN 52884804072 No Longer Active Carlton Hu MD Acti ve TOPAMAX 25 MG ORAL TABLET 1 qHS x 1 week, then 1 BID x 1 week, then 1 qAM and 2 qHS x 1 week, then 2 BID (migraine prevention) T OPIRAMATE 89652972112 No Longer Active Jerica FUENTES Active TOPAMAX 50 MG ORAL TABLET take 1 tab po BID for migraines. 07/02 TOPIRAMATE 07955244277 No Longer Active Jerica FUENTES Active TRIAMCINOLONE ACETONIDE 0.1 % EXTERNAL CREAM apply three roger es daily prn rash TRIAMCINOLONE ACETONIDE 72803282656 No Longer Active Carlton Hu MD Active PAXIL 40 MG ORAL TABLET take 1 tab po qday for depression 0 PAROXETINE HCL 27038216465 Active Carlton Hu MD Active CHERATUSSIN AC 100-10 MG/5ML ORAL SYRUP 5ml po q6hr PRN Cough 20 13/04/14 GUAIFENESIN-CODEINE 19655007591 No Longer Active Carlton Hu MD Active MEDROL 4 MG ORAL TABLET THERAPY PACK 6 tabs on day 1, 5 tabs on day 2, 4 tabs on day 3, 3 tabs on day 4, 2 tabs on day 5, 1 tab on day 6 2013 METHYLPREDNISOLONE 10086534651 No Longer Active Perez Mora MD Active AZITHROMYCIN 250 MG ORAL TABLET 2 po qd x 1 day, then 1 po q d x 4 days AZITHROMYCIN 81775851104 No Longer Active Perez Ambriz MD Active PROPRANOLOL HCL 60 MG ORAL TABLET 1 PO Q D PROPRANOLOL HCL 10418286730 No Longer Active Perez Mora MD Activ e CHERATUSSIN AC 100-10 MG/5ML ORAL SYRUP take one tsp po Q 6h ours prn cough GUAIFENESIN-CODEINE 57379319014 No Longer Active Zia Mora MD Active AUGMENTIN 875-125 MG ORAL TABLET 1 tab by mouth twice daily with food AMOXICILLIN-POT CLAVULANATE 43189933110 No Longer Act nael Perez Mora MD Active CHERATUSSIN AC 100-10 MG/5ML ORAL SYRUP 1 tsp by mouth every 4 hours as needed for cough GUAIFENESIN-CODEINE 76917483872 No Longe r Active Hguo Restrepo MD Active ACETAMINOPHEN-CODEINE #3 300-30 MG ORAL TABLET 1 PO Q 4-6 HRS [place] N PAIN ACETAMINOPHEN-CODEINE 46630285345 No Longer Active Hugo Restrepo MD Active LEVAQUIN 500 MG ORAL TABLET take one po QD LEVO FLOXACIN 08498326511 No Longer Active Griffin HERNANDEZ Active PREDNISONE 20 MG ORAL TABLET Take 3 tabs daily for 3 d ays, 2 tabs daily for 3 days, 1 tab daily for 3 days, 1/2 tab daily for 3 days 11/07 PREDNISONE 34027800491 No Longer Active Carlton Hu MD Acti ve AVELOX 400 MG ORAL TABLET 1 tab by mouth daily MOXIFLOXACIN HCL 69757283498 No Longer Active Carlton Hu MD Active CHERATUSSIN AC 100-10 MG/5ML ORAL SYRUP 1 tsp by mouth every 4 hours as needed for cough GUAIFENESIN-CODEINE 53851902805 No Longe r Active Hugo Restrepo MD Active AVELOX 400 MG ORAL TABLET 1 tab by mouth daily MOXIFLOXACIN HCL 37970028271 No Longer Active Marcy De La Rosa MD PhD Active TERBINAFINE HCL 250 MG ORAL TABLET 1 qDay T ERBINAFINE HCL 78609473356 No Longer Active Marcy De La Rosa MD PhD Active CHERATUSSIN AC 100-10 MG/5ML ORAL SYRUP 1 tsp by mouth every 4 hours as needed for cough GUAIFENESIN-CODEINE 85011961607 No Longe r Active Marcy De La Rosa MD PhD Active AVELOX 400 MG ORAL TABLET 1 tab by mouth daily MOXIFLOXACIN HCL 49912603274 No Longer Active Marcy De La Rosa MD PhD Active HYDROCODONE-ACETAMINOPHEN 5-325 MG ORAL TABLET 1 po q 6hr PRN co ugh HYDROCODONE-ACETAMINOPHEN 18214093643 No Longer Active Marcy De La Rosa MD PhD Active PREDNISONE 20 MG ORAL TABLET 2 tabs daily for 3 days, 1 tab daily for 3 days, 1/2 tab daily for 2 days PREDNISONE 63261093246 No Longer Active Carlton Hu MD Active CEFDINIR 300 MG ORAL CAPSULE by mouth twice a day 2011 CEFDINIR 07526479907 No Longer Active Carlton Hu MD Acti ve HYDROCHLOROTHIAZIDE 25 MG ORAL TABLET 1 TAB PO DAILY HYDROCHLOROTHIAZIDE 65731442260 Active Carlton Hu MD A ctive ACETAMINOPHEN-CODEINE #3 300-30 MG ORAL TABLET 1 tablet po q 4-6 hrs prn pain ACETAMINOPHEN-CODEINE 25741662059 No Longer Active Ridge Bess DO Active ZITHROMAX 250 MG ORAL TABLET 2 po today, then 1 po q days 2-5 20 03/07/07 AZITHROMYCIN 44474888328 No Longer Active Carlton Hu MD Active CHERATUSSIN AC 100-10 MG/5ML ORAL SYRUP take 1 tsp po q4-6 h ours prn cough GUAIFENESIN-CODEINE 79096493137 No Longer Active Jayden Hu MD Active ACETAMINOPHEN-CODEINE #3 300-30 MG ORAL TABLET 1 PO Q 4-6 HR PRN PAIN ACETAMINOPHEN-CODEINE 73581329561 No Longer Active Da raimundo Hu MD Active LORTAB 7.5-500 MG/15ML ORAL ELIXIR 7.5 ml po q 4 hour prn cough HYDROCODONE-ACETAMINOPHEN 36072981814 No Longer Active Carlton Hu MD Active PREDNISONE 20 MG ORAL TABLET 1 po bid 3 days, then 1 po q day 3 days PREDNISONE 71944210258 No Longer Active Carlton Hu MD Active CEFDINIR 300 MG ORAL CAPSULE by mouth twice a day 2011 CEFDINIR 43680519199 No Longer Active Carlton Hu MD Acti ve CEFDINIR 300 MG ORAL CAPSULE by mouth twice a day 2010 CEFDINIR 70921367561 No Longer Active Carlton Hu MD Acti ve CEFDINIR 300 MG ORAL CAPSULE by mouth twice a day 2010 CEFDINIR 70699403631 No Longer Active Carlton Hu MD Acti ve TESSALON PERLES 100 MG ORAL CAPSULE 1 tablet by mouth 3 times daily as needed for cough BENZONATATE 06787052691 No Longer Active Carlton Hu MD Active CEFDINIR 300 MG ORAL CAPSULE by mouth twice a day 2010 CEFDINIR 20458970919 No Longer Active Carlton Hu MD Acti ve ZITHROMAX Z-REYNA 250 MG ORAL TABLET 2 today, then 1 daily for 4 d ays AZITHROMYCIN 81851154724 No Longer Active Hugo Restrepo MD Active TESSALON PERLES 100 MG ORAL CAPSULE 1 tablet by mouth 3 times daily as needed for cough TESSALBARRON PERLES 100 MG ORAL CAPSULE 36590 7 BENZONATATE Inactive PREDNISONE 20 MG ORAL TABLET 1 po bid 3 days, then 1 po q day 3 days PREDNISONE 20 MG ORAL TABLET 793556 PREDNISONE [place] ctive LORTAB 7.5-500 MG/15ML ORAL ELIXIR 7.5 [...] cough CHERATUSSIN AC 100-10 MG/5ML ORAL SYRUP 849474 GUAIFENESIN-CODEINE Inactive ACETAMINOPHEN-CODEINE #3 300-30 MG ORAL TABLET 1 tablet po q 4-6 hrs prn pain ACETAMINOPHEN-CODEINE #3 300-30 MG ORAL TABLET ACETAMINOPHEN-CODEINE Inactive HYDROCODONE-ACETAMINOPHEN 5-325 MG ORAL TABLET 1 po q 6hr PRN co ugh HYDROCODONE-ACETAMINOPHEN 5-325 MG ORAL TABLET 226367 HYDROCODONE-ACETAMINOPHEN Inactive AVELOX 400 MG ORAL TABLET 1 tab by mouth daily AVELOX 400 MG ORAL TABLET 291395 MOXIFLOXACIN HCL Inactive CHERATUSSIN AC 100-10 MG/5ML ORAL SYRUP 1 tsp by mouth every 4 hours as needed for cough CHERATUSSIN AC 100-10 MG/5ML ORAL SYRUP 9 96924 GUAIFENESIN-CODEINE Inactive TERBINAFINE HCL 250 MG ORAL TABLET 1 qDay 07/08 TERBINAFINE HCL 250 MG ORAL TABLET 443365 TERBINAFINE HCL Inactive CHERATUSSIN AC 100-10 MG/5ML ORAL SYRUP 1 tsp by mouth every 4 hours as needed for cough CHERATUSSIN AC 100-10 MG/5ML ORAL SYRUP 9 41090 GUAIFENESIN-CODEINE Inactive ACETAMINOPHEN-CODEINE #3 300-30 MG ORAL TABLET 1 PO Q 4-6 HRS [place] N PAIN ACETAMINOPHEN-CODEINE #3 300-30 MG ORAL TABLET ACETAMINOPHEN-CODEINE Inactive CHERATUSSIN AC 100-10 MG/5ML ORAL SYRUP 1 tsp by mouth every 4 hours as needed for cough CHERATUSSIN AC 100-10 MG/5ML ORAL SYRUP 9 95583 GUAIFENESIN-CODEINE Inactive AUGMENTIN 875-125 MG ORAL TABLET 1 tab by mouth twice daily with food AUGMENTIN 875-125 MG ORAL TABLET AMOXICIL MADELINE-POT CLAVULANATE Inactive CHERATUSSIN AC 100-10 MG/5ML ORAL SYRUP take one tsp po Q 6h ours prn cough CHERATUSSIN AC 100-10 MG/5ML ORAL SYRUP 788681 GUAIFENESIN-CODEINE Inactive PROPRANOLOL HCL 60 MG ORAL TABLET 1 PO Q D PROPRANOLOL HCL 60 MG ORAL TABLET 723486 PROPRANOLOL HCL Inactive TOPAMAX 50 MG ORAL TABLET take 1 tab po BID for migraines. 07/02 TOPAMAX 50 MG ORAL TABLET 879076 TOPIRAMATE Inacti ve TOPAMAX 25 MG ORAL TABLET 1 qHS x 1 week, then 1 BID x 1 week, then 1 qAM and 2 qHS x 1 week, then 2 BID (migraine prevention) TOPAMAX 25 MG ORAL TABLET 995420 TOPIRAMATE Inactive LYRICA 75 MG ORAL CAPSULE TAKE 1 CAPSULE BY MOUTH TWICE DAILY LYRICA 75 MG ORAL CAPSULE PREGABALIN Inactive SYMBICORT 160-4.5 MCG/ACT INHALATION AEROSOL 2 puffs bid wit h rinse after SYMBICORT 160-4.5 MCG/ACT INHALATION AEROSOL BUDESONIDE- FORMOTEROL FUMARATE Inactive PROMETHAZINE-CODEINE 6.25-10 MG/5ML ORAL SYRUP 1 tsp b y mouth every 8 hours prn cough PROMETHAZINE-CODEINE 6.25-10 MG/ 5ML ORAL SYRUP 028387 PROMETHAZINE-CODEINE Inactive CYMBALTA 30 MG ORAL CAPSULE DELAYED RELEASE PARTICLES 1 cap by mouth daily CYMBALTA 30 MG ORAL CAPSULE DELAYED RELE ASE PARTICLES 488176 DULOXETINE HCL Inactive PREMARIN 0.625 MG ORAL TABLET TAKE 1 TAB BY MOUTH DAILY PREMARIN 0.625 MG ORAL TABLET ESTROGENS CONJUGATED Inactive CHERATUSSIN AC 100-10 MG/5ML ORAL SYRUP 1 tsp by mouth every 4 hours as needed for cough CHERATUSSIN AC 100-10 MG/5ML ORAL SYRUP 9 52251 GUAIFENESIN-CODEINE Inactive PROMETHAZINE-CODEINE 6.25-10 MG/5ML ORAL SYRUP 1 tsp b y mouth every 6 hours if needed for cough PROMETHAZINE-CODEINE 6.25-10 MG/5ML ORAL SYRUP 392256 PROMETHAZINE-CODEINE Inactive CHERATUSSIN AC 100-10 MG/5ML ORAL SYRUP 1 tsp by mouth every 4 hours as needed for cough CHERATUSSIN AC 100-10 MG/5ML ORAL SYRUP 9 01359 GUAIFENESIN-CODEINE Inactive FLUTICASONE PROPIONATE 50 MCG/ACT NASAL SUSPENSION 1 t o 2 sprays each nostril daily FLUTICASONE PROPIONATE 50 MCG/AC T NASAL SUSPENSION 9880782 FLUTICASONE PROPIONATE Inactive PREDNISONE 20 MG ORAL TABLET 3 tab PO qd x 2d, 2 tab P O qd x 2d, 1 tab PO qd x 2d, 1/2 tab PO qd x 2d PREDNISONE 20 MG ORAL TAB LET 187224 PREDNISONE Inactive LEVOFLOXACIN 500 MG ORAL TABLET 1 tab PO daily x 10 days LEVOFLOXACIN 500 MG ORAL TABLET 019100 LEVOFLOXACIN Inactive CYCLOBENZAPRINE HCL 10 MG ORAL TABLET 1 tablet by mouth BID prn had pain CYCLOBENZAPRINE HCL 10 MG ORAL TABLET 666766 CYCLOBENZAPRINE HCL Inactive ZOCOR 40 MG ORAL [...] FLUTICASONE PROPIO EFE 50 MCG/ACT NASAL SUSPENSION 7881609 FLUTICASONE PROPIONATE Inactive TUSSIONEX PENNKINETIC ER 10-8 [...] three days PREDNISONE 20 MG ORAL TABLET 057740 PREDNIS ONE Inactive PROAIR HFA 108 (90 BASE) MCG/ACT INHALATION AEROSOL SO LUTION 2 puffs four times a day as needed PROAIR HFA 108 (90 B ASE) MCG/ACT INHALATION AEROSOL SOLUTION ALBUTEROL SULFATE Inactive PREDNISONE 20 MG ORAL TABLET two tabs by mouth today, then one tab by mouth days two and three and four PREDNISONE 20 MG ORAL TAB LET 289085 PREDNISONE Inactive TUSSIONEX PENNKINETIC ER 10-8 MG/5ML [...] bid 04/20 TOPAMAX 100 MG ORAL TABLET 377289 TOPIRAMATE Inactive CYMBALTA 30 MG ORAL CAPSULE DELAYED RELEASE PARTICLES 1 cap by mouth daily for depression CYMBALTA 30 MG ORAL CAPSULE DELAYED RELEASE PARTICLES 592610 DULOXETINE HCL Inactive ZITHROMAX Z-REYNA 250 MG ORAL TABLET 2 today, then 1 daily for 4 d ays ZITHROMAX Z-REYNA 250 MG ORAL TABLET 661300 AZITHROMYCIN Inactive CEFDINIR 300 MG ORAL CAPSULE by mouth twice a day 2010 CEFDINIR 300 MG ORAL CAPSULE 254067 CEFDINIR Inactive CEFDINIR 300 MG ORAL CAPSULE by mouth twice a day 2010 CEFDINIR 300 MG ORAL CAPSULE 257643 CEFDINIR Inactive CEFDINIR 300 MG ORAL CAPSULE by mouth twice a day 2010 CEFDINIR 300 MG ORAL CAPSULE 509257 CEFDINIR Inactive CEFDINIR 300 MG ORAL CAPSULE by mouth twice a day 2011 CEFDINIR 300 MG ORAL CAPSULE 682875 CEFDINIR Inactive ZITHROMAX 250 MG ORAL TABLET 2 po today, then 1 po q days 2-5 03/07/07 ZITHROMAX 250 MG ORAL TABLET 944736 AZITHROMYCIN [place] ctive CEFDINIR 300 MG ORAL CAPSULE by mouth twice a day 2011 CEFDINIR 300 MG ORAL CAPSULE 685222 CEFDINIR Inactive PREDNISONE 20 MG ORAL TABLET 2 tabs daily for 3 days, 1 tab daily for 3 days, 1/2 tab daily for 2 days PREDNISONE 20 MG ORAL T ABLET 818440 PREDNISONE Inactive AVELOX 400 MG ORAL TABLET 1 tab by mouth daily AVELOX 400 MG ORAL TABLET 489382 MOXIFLOXACIN HCL Inactive AVELOX 400 MG ORAL TABLET 1 tab by mouth daily AVELOX 400 MG ORAL TABLET 513003 MOXIFLOXACIN HCL Inactive PREDNISONE 20 MG ORAL TABLET Take 3 tabs daily for 3 d ays, 2 tabs daily for 3 days, 1 tab daily for 3 days, 1/2 tab daily for 3 days 11/07 PREDNISONE 20 MG ORAL TABLET 065802 PREDNISONE Inactive LEVAQUIN 500 MG ORAL TABLET take one po QD LEVAQUIN 500 MG ORAL TABLET 389902 LEVOFLOXACIN Inactive AZITHROMYCIN 250 MG ORAL TABLET 2 po qd x 1 day, then 1 po q d x 4 days AZITHROMYCIN 250 MG ORAL TABLET 015470 AZITHROMY GIOVANNI Inactive MEDROL 4 MG ORAL TABLET THERAPY PACK 6 tabs on day 1, 5 tabs on day 2, 4 tabs on day 3, 3 tabs on day 4, 2 tabs on day 5, 1 tab on day 6 2013 MEDROL 4 MG ORAL TABLET THERAPY PACK 178314 METHYLPREDNISOLONE [place] ctive CHERATUSSIN AC 100-10 MG/5ML ORAL SYRUP 5ml po q6hr PRN Cough 20 13/04/14 CHERATUSSIN AC 100-10 MG/5ML ORAL SYRUP 359929 GUAIFENE SIN-CODEINE Inactive TRIAMCINOLONE ACETONIDE 0.1 % EXTERNAL CREAM apply three roger es daily prn rash TRIAMCINOLONE ACETONIDE 0.1 % EXTERNAL CREAM 101 4314 TRIAMCINOLONE ACETONIDE Inactive AZITHROMYCIN 250 MG ORAL TABLET 2 po qd x 1 day, then 1 po q d x 4 days AZITHROMYCIN 250 MG ORAL TABLET 967584 AZITHROMY GIOVANNI Inactive MEDROL 4 MG ORAL TABLET THERAPY PACK 6 pills x 1 day, then 5 pills x 1 day then 4 pills x 1 day, then 3 pills x 1 day, then 2 pills x 1 day, then 1 pill x 1 day, then stop MEDROL 4 MG ORAL TABLET THERAPY PACK 032284 METHYLPREDNISOLONE Inactive AMOXICILLIN 500 MG ORAL CAPSULE 1 tab by mouth 3 times daily x 10 days AMOXICILLIN 500 MG ORAL CAPSULE 506537 AMOXICILL IN Inactive AMOXICILLIN 500 MG ORAL CAPSULE 1 tab by mouth 3 times daily x 10 days AMOXICILLIN 500 MG ORAL CAPSULE 796275 AMOXICILL IN Inactive ZITHROMAX 250 MG ORAL TABLET 2 po today, then 1 po q days 2-5 20 12/08/14 ZITHROMAX 250 MG ORAL TABLET 079318 AZITHROMYCIN Greer ctive AUGMENTIN 875-125 MG ORAL TABLET 1 po BID x 10 days 20 13/01/20 AUGMENTIN 875-125 MG ORAL TABLET AMOXICILLIN-POT CLAVULANATE Inactive ZITHROMAX Z-REYNA 250 MG ORAL TABLET 2 today, then 1 daily for 4 d ays ZITHROMAX Z-REYNA 250 MG ORAL TABLET 482033 AZITHROMYCIN Inactive ZITHROMAX 250 MG ORAL TABLET 2 po today, then 1 po q days 2-5 20 14/03/21 ZITHROMAX 250 MG ORAL TABLET 390391 AZITHROMYCIN Greer ctive ZITHROMAX Z-REYNA 250 MG ORAL TABLET 2 today, then 1 daily for 4 d ays ZITHROMAX Z-REYNA 250 MG ORAL TABLET 198380 AZITHROMYCIN Inactive CEFDINIR 300 MG ORAL CAPSULE 1 po BID x 10 days 06/21 CEFDINIR 300 MG ORAL CAPSULE 535549 CEFDINIR Inactive ZITHROMAX 250 MG ORAL TABLET 2 po today, then 1 po q days 2-5 20 13/08/10 ZITHROMAX 250 MG ORAL TABLET 763266 AZITHROMYCIN [place] [facility] LEVAQUIN 500 MG ORAL TABLET 1 tablet by mouth daily 20 13/09/24 LEVAQUIN 500 MG ORAL TABLET 19971102 LEVOFLOXACIN Inactive SINGULAIR 10 MG ORAL TABLET 1 po qday for allergies 20 14/01/12 SINGULAIR 10 MG ORAL TABLET 20010504 MONTELUKAST SODIUM Inactive AMOXICILLIN 500 MG ORAL CAPSULE 2 po BID x 10 days 201 09/29/08 AMOXICILLIN 500 MG ORAL CAPSULE 024195 AMOXICILLIN Inactive PREDNISONE 20 MG ORAL TABLET 2 tabs daily for 3 days, 1 tab daily for 3 days, 1/2 tab daily for 2 days PREDNISONE 20 MG ORAL T ABLET 795465 PREDNISONE Inactive ZITHROMAX Z-REYNA 250 MG ORAL TABLET 2 today, then 1 daily for 4 d ays ZITHROMAX Z-REYNA 250 MG ORAL TABLET 034939 AZITHROMYCIN Inactive PREDNISONE 20 MG ORAL TABLET 2 tabs daily for 3 days, 1 tab daily for 3 days, 1/2 tab daily for 2 days PREDNISONE 20 MG ORAL T ABLET 404613 PREDNISONE Inactive ZITHROMAX 250 MG ORAL TABLET 2 po today, then 1 po q days 2-5 20 14/09/04 ZITHROMAX 250 MG ORAL TABLET 165286 AZITHROMYCIN [place] [facility] AMOXICILLIN 500 MG ORAL CAPSULE 1 cap by mouth three times a day AMOXICILLIN 500 MG ORAL CAPSULE 452636 AMOXICILLIN Inactive TERBINAFINE HCL 250 MG ORAL TABLET 1 qDay for nail fungus 7 TERBINAFINE HCL 250 MG ORAL TABLET 349022 TERBINAFINE HCL Inact nael AUGMENTIN 875-125 MG ORAL TABLET 1 po BID x 10 days 16/03/22 AUGMENTIN 875-125 MG ORAL TABLET AMOXICILLIN-POT CLAVULANATE Inactive PREDNISONE 20 MG ORAL TABLET 2 po qd x 5 days PREDNISONE 20 MG ORAL TABLET 607240 PREDNISONE Inactive AZITHROMYCIN 250 MG ORAL TABLET 2 po qd x 1 day, then 1 po q d x 4 days AZITHROMYCIN 250 MG ORAL TABLET 340088 AZITHROMY GIOVANNI Inactive PREDNISONE 50 MG ORAL TABLET Take 50 mg dialy for 6 day s 7 PREDNISONE 50 MG ORAL TABLET 338174 PREDNISONE Inactive AUGMENTIN 875-125 MG ORAL TABLET 1 po BID x 10 days 20 18/04/16 AUGMENTIN 875-125 MG ORAL TABLET AMOXICILLIN-POT CLAVULANATE Inactive DOXYCYCLINE HYCLATE 100 MG ORAL CAPSULE 1 cap by mouth twice latasha ly DOXYCYCLINE HYCLATE 100 MG ORAL CAPSULE 5618023 DOXYCYCL INE HYCLATE Inactive PREDNISONE 20 MG ORAL TABLET Take 2 tabs day 1 and 2 and 1 t ab days 3 and 4 PREDNISONE 20 MG ORAL TABLET 521503 PREDNISONE Inactive Vital Signs Date Name Value [...] - Chem istry sodium, serum 139 mmol/L 297-764 1434/10/12 potassium, serum 3.8 mmol/L 3.5-5.2 chloride, serum [...] negative Encounters Code Encounter Date Provider Facility CPT-28296 Level 3 Est. Patient 16:53:54 CDT May haas MD [facility]-69716 [id number] Vst-Est Level IV 08:41:[address] Carlton Hu MD [facility]-58130 Level 3 Est. Patient 09:46:49 VEHICLE SAFETY INSPECTOR David lion [facility]-54225 [id number] Vst-Est Level III 11:12:16 CDT Yanet Bess DO [facility]-43333 Level 3 Est. Patient 11:34:49 VEHICLE SAFETY INSPECTOR Perez Mora MD [facility]-29120 Level 4 Est. Patient 09:51:32 VEHICLE SAFETY INSPECTOR Carlton rich MD [facility]-48702 Level 3 Est. Patient 10:26:00 VEHICLE SAFETY INSPECTOR Elise stephenson METAL FITTER [facility]-98778 Level 3 Est. Patient 13:35:41 VEHICLE SAFETY INSPECTOR Carlton rich MD [facility]-52840 Level 3 Est. Patient 10:03:52 VEHICLE SAFETY INSPECTOR Carlton rich MD [facility]-87337 Level 3 Est. Patient 12:17:50 CDT Hugo Restrepo MD [facility]-26986 Level 3 Est. Patient 13:42:38 CDT Elise Are [facility] CPT-57484 Level 3 Est. Patient 13:23:51 CDT Diya Mariana cobian [facility] CPT-78910 Level 3 Est. Patient 14:22:19 VEHICLE SAFETY INSPECTOR Diya cobian [facility] CPT-83396 Level 3 Est. Patient 10:11:46 CDT Carlton rich MD [facility] CPT-73228 Level 3 Est. Patient 17:29:43 CDT Elise Are [facility] CPT-20308 Level 3 Est. Patient 11:58:06 CDT Elise Are [facility] CPT-84231 Level 4 Est. Patient 14:36:51 CDT Carlton rich MD [facility] CPT-15344 Level 3 Est. Patient 18:16:00 VEHICLE SAFETY INSPECTOR Blaine HERNANDEZ [facility] CPT-82616 Level 3 Est. Patient 09:45:49 VEHICLE SAFETY INSPECTOR Carlton rich MD [facility] CPT-38527 Level 3 Est. Patient 13:19:20 CDT Carlton rich MD [facility] CPT-04222 Level 3 Est. Patient 13:06:43 CDT Ridge tam DO [facility] CPT-53179 Level 3 Est. Patient 10:03:07 CDT Perez Mora MD [facility] CPT-78379 Level 3 Est. Patient 19:50:35 VEHICLE SAFETY INSPECTOR Carlton rich MD [facility] CPT-68047 Level 4 Est. Patient 18:05:01 VEHICLE SAFETY INSPECTOR Carlton rich MD [facility] CPT-38302 Level 3 Est. Patient 10:45:55 VEHICLE SAFETY INSPECTOR Hugo Restrepo MD [facility] CPT-26592 Level 3 Est. Patient 14:12:49 CDT Griffin HERNANDEZ [facility] CPT-97825 Level 3 Est. Patient 17:37:24 CDT Carlton rich MD [facility] CPT-79880 Level 3 Est. Patient 16:51:54 CDT Carlton rich MD [facility] CPT-62856 Level 3 Est. Patient 12:18:11 CDT Hugo Restrepo MD [facility] CPT-07458 Level 3 Est. Patient 11:30:25 CDT Marcy crisostomo MD PhD [facility] CPT-85040 Level 3 Est. Patient 12:00:47 VEHICLE SAFETY INSPECTOR Carlton rich MD [facility] CPT-47997 Level 3 Est. Patient 16:31:06 VEHICLE SAFETY INSPECTOR Carlton rich MD [facility] CPT-84819 Level 3 Est. Patient 16:23:24 VEHICLE SAFETY INSPECTOR Ridge tam DO [facility] CPT-87886 Level 3 Est. Patient 12:34:12 CDT Carlton rich MD [facility] CPT-63969 Level 2 Est. Patient 15:43:33 CDT Robi armstrong MD [facility] CPT-97534 Level 4 Est. Patient 14:04:44 CDT Carlton rich MD [facility] CPT-17347 Level 3 Est. Patient 05:47:59 CDT Ridge tam [facility] CPT-19518 Level 3 Est. Patient 13:12:53 VEHICLE SAFETY INSPECTOR Carlton rich MD [facility] CPT-89683 Level 3 Est. Patient 14:26:53 CDT Hugo Restrepo MD [facility] Procedures Code Procedure Name Date Entry Date Standard Desc ription CPT-000 Give Appropriate Flu Vaccine 14:14:31 CDT 2 CPT-J1040 Depo Medrol 80 mg (Methyl Prednisolone A cetate) 10:42:44 CDT CPT-J1100 Decadron 8mg (Dexamethasone) 10:42:44 CDT 2 CPT-J0696 Rocephin 1gm Inj Solr 14:32:13 CDT CPT-J1020 Depo Medrol 60 mg (Methyl Prednisolone A cetate) 14:32:13 CDT CPT-J1100 Decadron 6mg (Dexamethasone) 14:32:13 CDT 2 CPT-27949 Hip bilat min 2V w AP pelvis 13:16:20 CDT 2 CPT-68209 Pelvis only 13:07:33 CDT CPT-68392 Spec Collection and Handling Fee 11:25:12 C DT CPT-63442 Fluzone Quadrivalent Intramuscular Suspe nsion 0.5 ML 14:31:55 CDT CPT-78503 Abx/Therapy Injection 13:28:47 VEHICLE SAFETY INSPECTOR CPT-J2930 Solu Medrol 125 mg (Methyl Prednisolone Sodium Succinate) 12:00:47 VEHICLE SAFETY INSPECTOR CPT-14622 Venipuncture Draw Fee 11:33:31 CDT CPT-19516 EKG Trac and Interp 11:21:09 CDT CPT-81622 Chest 2V Frontal and Lat 11:21:09 CDT 12/15 CPT-17465 Venipuncture Draw Fee 08:02:34 CDT CPT-53099 Chest 2V Frontal and Lat 05:47:59 CDT 06/05
--- OUTSIDE RECORDS SUMMARY | 2019-10-08 09:04 | XMS REPORT | Clinical Summary ---
[...] Inactive Hugo Restrepo MD Sinusitis ICD-473.9 Inactive uHgo Restrepo MD Bronchitis-Acute ICD-466.0 Inactive Hugo dominguez [...] 1 capsule at night PENTOSAN POLYSULFATE SODIUM [id number] Active Cinthia H art REMOTE MORTGAGE UNDERWRITER Active CYMBALTA 30 MG ORAL CAPSULE DELAYED RELEASE PARTICLES 1 cap by mouth daily for depression DULOXETINE HCL 10918279562 No Longer Active Carlton Hu MD Active CYMBALTA 60 MG ORAL CAPSULE DELAYED RELEASE PARTICLES 1 cap by mouth daily for mood and pain DULOXETINE HCL 60882020342 Active Carlton Hu MD Active TUSSIONEX PENNKINETIC ER 10-8 MG/5ML ORAL SUSPENSION E XTENDED RELEASE 5ml po q12hr PRN Cough HYDROCOD POLST-CHLORPHEN POLST 14906257685 Active David Marianne INFORMATICS NURSE SPECIALIST Active PREDNISONE 20 MG ORAL TABLET Take 2 tabs day 1 and 2 and 1 t ab days 3 and 4 PREDNISONE 23185776532 No Longer Active David Marianne INFORMATICS NURSE SPECIALIST Active DOXYCYCLINE HYCLATE 100 MG ORAL CAPSULE 1 cap by mouth twice latasha ly DOXYCYCLINE HYCLATE 62201629478 No Longer Active David Marianne INFORMATICS NURSE SPECIALIST Active TOPAMAX 100 MG ORAL TABLET Take 1 tablet po bid TOPIRAMATE 80873818405 No Longer Active David Marianne INFORMATICS NURSE SPECIALIST Active TUSSIONEX PENNKINETIC ER 10-8 MG/5ML ORAL SUSPENSION E XTENDED RELEASE 5ml po q12hr PRN Cough HYDROCOD POLST-CHLORPHEN POLST 5 1296806972 No Longer Active David Marianne INFORMATICS NURSE SPECIALIST Active AUGMENTIN 875-125 MG ORAL TABLET 1 po BID x 10 days 18/04/16 AMOXICILLIN-POT CLAVULANATE 99144491426 No Longer Active David Marianne INFORMATICS NURSE SPECIALIST Active PREDNISONE 50 MG ORAL TABLET Take 50 mg dialy for 6 day s 7 PREDNISONE 19098741276 No Longer Active David Marianne INFORMATICS NURSE SPECIALIST Active TUSSIONEX PENNKINETIC ER 10-8 MG/5ML ORAL SUSPENSION E XTENDED RELEASE 5ml po q12hr PRN Cough HYDROCOD POLST-CHLORPHEN POLST 5 0166553775 No Longer Active Cherelle Torres RN Active PREDNISONE 20 MG ORAL TABLET two tabs by mouth today, then one tab by mouth days two and three and four PREDNISONE 64443318757 No Lo nger Active Cherelle Torres RN Active AZITHROMYCIN 250 MG ORAL TABLET 2 po qd x 1 day, then 1 po q d x 4 days AZITHROMYCIN 53048817832 No Longer Active Ridge Bess DO Active PREDNISONE 20 MG ORAL TABLET 2 po qd x 5 days P REDNISONE 80453533835 No Longer Active Perez Mora MD Active PROAIR HFA 108 (90 BASE) MCG/ACT INHALATION AEROSOL SO LUTION 2 puffs four times a day as needed ALBUTEROL SULFATE 11713842840 No Long er Active Becky Cuellar RMA Active ASPIRIN 81 MG ORAL TABLET 1 po qd ASPIRIN 98494226106 Active Carlton Hu MD Active PREDNISONE 20 MG ORAL TABLET 1 tab twice daily for 3 d ay, then one daily for three days PREDNISONE 08623627688 No Longer Active Carlton Hu MD Active AUGMENTIN 875-125 MG ORAL TABLET 1 po BID x 10 days 16/03/22 AMOXICILLIN-POT CLAVULANATE 12118746114 No Longer Active Elise Garcia APRN Active TERBINAFINE HCL 250 MG ORAL TABLET 1 qDay for nail fungus 7 TERBINAFINE HCL 65963123730 No Longer Active Carlton Hu MD A ctive AMOXICILLIN 500 MG ORAL CAPSULE 1 cap by mouth three times a day AMOXICILLIN 15143200933 No Longer Active Carlton Hu MD Active ELMIRON 100 MG ORAL CAPSULE 2 tablets in the am and 1 tablet at hs PENTOSAN POLYSULFATE SODIUM 98607137940 No Longer Active Robert Hu MD Active MUCINEX D 60-600 MG ORAL TABLET EXTENDED RELEASE 12 HOUR 1 t ab po q am PSEUDOEPHEDRINE-GUAIFENESIN 59448280771 No Longer Act nael Carlton Hu MD Active MUCINEX DM MAXIMUM STRENGTH 60-1200 MG ORAL TABLET EXT ENDED RELEASE 12 HOUR 1 tab po q am DEXTROMETHORPHAN-GUAIFENESIN 61226930310 No Longer Active Carlton Hu MD Active TUSSIONEX PENNKINETIC ER 10-8 MG/5ML ORAL SUSPENSION E XTENDED RELEASE 5ml po q12hr PRN Cough HYDROCOD POLST-CHLORPHEN POLST 5 0030081720 No Longer Active Carlton Hu MD Active POTASSIUM CHLORIDE ER 20 MEQ ORAL TABLET EXTENDED RELE ASE Take 1 by mouth 4 times daily for 7 days POTASSIUM CHLORIDE 26122077766 No Longer Active Carlton Hu MD Active ZITHROMAX 250 MG ORAL TABLET 2 po today, then 1 po q days 2-5 20 14/09/04 AZITHROMYCIN 28658585237 No Longer Active Elise Garcia APRN Active TUSSIONEX PENNKINETIC ER 10-8 MG/5ML ORAL SUSPENSION E XTENDED RELEASE 5 ml twice a day as needed for cough HYDROCOD POLST-CHLORPH EN POLST 52992317510 No Longer Active Elise Garcia APRN Active MONTELUKAST SODIUM 10 MG ORAL TABLET 1 po daily for Allergy MONTELUKAST SODIUM 30911037208 Active Carlton Hu MD Ac tive TUSSIONEX PENNKINETIC ER 10-8 MG/5ML ORAL SUSPENSION E XTENDED RELEASE 5ml po q12hr PRN Cough HYDROCOD POLST-CHLORPHEN POLST 5 3883848164 No Longer Active Hugo Restrepo MD Active GABAPENTIN 100 MG ORAL CAPSULE 1 po BID for fibromyalgia GABAPENTIN 45616564494 Active ALFREDO Holly Active LYRICA 100 MG ORAL CAPSULE Take 1 tab po BID for fibromyalgia 20 11/08/21 PREGABALIN 29546929179 No Longer Active Elise Garcia APRN A ctive PREDNISONE 20 MG ORAL TABLET 2 tabs daily for 3 days, 1 tab daily for 3 days, 1/2 tab daily for 2 days PREDNISONE 48490990864 No Longer Active Diya De Guzman APRN Active TUSSIONEX PENNKINETIC ER 10-8 MG/5ML ORAL SUSPENSION E XTENDED RELEASE 5 mL PO q 12 hrs PRN cough HYDROCOD POLST-CHLORPHEN POLST 028544 26449 No Longer Active Jiriley De Guzman APRN Active FLUTICASONE PROPIONATE 50 MCG/ACT NASAL SUSPENSION 2 s prays each nostril daily until bottle is empty FLUTICASONE PROPIONATE 911888850 99 No Longer Active Diya De Guzman APRN Active ASMANEX 60 METERED DOSES 220 MCG/INH INHALATION AEROSO L POWDER BREATH ACTIVATED 1 puff bid with rinse after MOMETASONE FUROATE 8509215 4102 No Longer Active Diya De Guzman APRN Active ZITHROMAX Z-REYNA 250 MG ORAL TABLET 2 today, then 1 daily for 4 d ays AZITHROMYCIN 45210740753 No Longer Active Elise Garcia APRN Active TUSSIONEX PENNKINETIC ER 10-8 MG/5ML ORAL SUSPENSION E XTENDED RELEASE 5ml po q12hr PRN Cough HYDROCOD POLST-CHLORPHEN POLST 5 2949312230 No Longer Active Elise Garcia APRN Active PREDNISONE 20 MG ORAL TABLET 2 tabs daily for 3 days, 1 tab daily for 3 days, 1/2 tab daily for 2 days PREDNISONE 52972011185 No Longer Active Diya De Guzman APRN Active AMOXICILLIN 500 MG ORAL CAPSULE 2 po BID x 10 days 201 09/29/08 AMOXICILLIN 27901342278 No Longer Active Diya De Guzman APRN Act nael SINGULAIR 10 MG ORAL TABLET 1 po qday for allergies 20 14/01/12 MONTELUKAST SODIUM 36751096424 No Longer Active Carlton Hu MD Active LEVAQUIN 500 MG ORAL TABLET 1 tablet by mouth daily 20 13/09/24 LEVOFLOXACIN 36018643896 No Longer Active Carlton Hu MD Acti ve FLUTICASONE PROPIONATE 50 MCG/ACT NASAL SUSPENSION 2 s prays each nostril daily for 2 weeks, then 1 spray each nostril daily. FLUTICASONE PROPIONATE 31750061432 Active Carlton Hu MD Active ZITHROMAX 250 MG ORAL TABLET 2 po today, then 1 po q days 2-5 20 13/08/10 AZITHROMYCIN 01807160074 No Longer Active Elise Garcia APRN Active XANAX 0.5 MG ORAL TABLET one tablet by mouth daily prn anxiety 2015 ALPRAZOLAM 34779017802 Active ALFREDO Holly Active CEFDINIR 300 MG ORAL CAPSULE 1 po BID x 10 days CEFDINIR 55778573959 No Longer Active Carlton Hu MD Active ZOCOR 40 MG ORAL TABLET 1 tab by mouth daily SI MVASTATIN 08714561578 No Longer Active Carlton Hu MD Active CYCLOBENZAPRINE HCL 10 MG ORAL TABLET 1 tablet by mouth BID prn had pain CYCLOBENZAPRINE HCL 17980306812 No Longer Active Jayden Hu MD Active LEVOFLOXACIN 500 MG ORAL TABLET 1 tab PO daily x 10 days LEVOFLOXACIN 35031370428 No Longer Active Carlton Hu MD Acti ve PREDNISONE 20 MG ORAL TABLET 3 tab PO qd x 2d, 2 tab P O qd x 2d, 1 tab PO qd x 2d, 1/2 tab PO qd x 2d PREDNISONE 90061068548 No Lo nger Active Carlton Hu MD Active FLUTICASONE PROPIONATE 50 MCG/ACT NASAL SUSPENSION 1 t o 2 sprays each nostril daily FLUTICASONE PROPIONATE 26081781929 No Longer Ac tive Blaine HERNANDEZ Active CHERATUSSIN AC 100-10 MG/5ML ORAL SYRUP 1 tsp by mouth every 4 hours as needed for cough GUAIFENESIN-CODEINE 64902035782 No Longe r Active Blaine HERNANDEZ Active PROMETHAZINE-CODEINE 6.25-10 MG/5ML ORAL SYRUP 1 tsp b y mouth every 6 hours if needed for cough PROMETHAZINE-CODEINE 57220670412 No Longer Active Blaine HERNANDEZ Active CHERATUSSIN AC 100-10 MG/5ML ORAL SYRUP 1 tsp by mouth every 4 hours as needed for cough GUAIFENESIN-CODEINE 57915959590 No Longe r Active Blaine HERNANDEZ Active ZITHROMAX Z-REYNA 250 MG ORAL TABLET 2 today, then 1 daily for 4 d ays AZITHROMYCIN 27301079883 No Longer Active Columba Raida Act nael ZITHROMAX 250 MG ORAL TABLET 2 po today, then 1 po q days 2-5 20 14/03/21 AZITHROMYCIN 28498067974 No Longer Active Carlton Hu MD Active ZITHROMAX Z-REYNA 250 MG ORAL TABLET 2 today, then 1 daily for 4 d ays AZITHROMYCIN 96267474973 No Longer Active Columba Raida Act nael AUGMENTIN 875-125 MG ORAL TABLET 1 po BID x 10 days 13/01/20 AMOXICILLIN-POT CLAVULANATE 82879948562 No Longer Active Diya De Guzman APRN Active ZITHROMAX 250 MG ORAL TABLET 2 po today, then 1 po q days 2-5 20 12/08/14 AZITHROMYCIN 33684037601 No Longer Active Carlton Hu MD Active TRAMADOL HCL 50 MG ORAL TABLET 1 po tid with ES Tylenol TRAMADOL HCL 66752214339 Active ALFREDO Holly Active PREMARIN 0.625 MG ORAL TABLET TAKE 1 TAB BY MOUTH DAILY ESTROGENS CONJUGATED 82435495456 No Longer Active Ridge Bess DO A ctive CYMBALTA 30 MG ORAL CAPSULE DELAYED RELEASE PARTICLES 1 cap by mouth daily DULOXETINE HCL 87778504179 No Longer Active Ridge tam DO Active AMOXICILLIN 500 MG ORAL CAPSULE 1 tab by mouth 3 times daily x 10 days AMOXICILLIN 70445118296 No Longer Active Carlton bustamante MD Active AMOXICILLIN 500 MG ORAL CAPSULE 1 tab by mouth 3 times daily x 10 days AMOXICILLIN 90581569833 No Longer Active Carlton bustamante MD Active PROMETHAZINE-CODEINE 6.25-10 MG/5ML ORAL SYRUP 1 tsp b y mouth every 8 hours prn cough PROMETHAZINE-CODEINE 77201184222 No Longer Acti ve Carlton Hu MD Active MEDROL 4 MG ORAL TABLET THERAPY PACK 6 pills x 1 day, then 5 pills x 1 day then 4 pills x 1 day, then 3 pills x 1 day, then 2 pills x 1 day, then 1 pill x 1 day, then stop METHYLPREDNISOLONE 88849585112 No Long er Active Perez Mora MD Active AZITHROMYCIN 250 MG ORAL TABLET 2 po qd x 1 day, then 1 po q d x 4 days AZITHROMYCIN 69607838270 No Longer Active Perez Ambriz MD Active SYMBICORT 160-4.5 MCG/ACT INHALATION AEROSOL 2 puffs bid wit h rinse after BUDESONIDE-FORMOTEROL FUMARATE 24536043659 N o Longer Active Perez Mora MD Active LYRICA 75 MG ORAL CAPSULE TAKE 1 CAPSULE BY MOUTH TWICE DAILY PREGABALIN 71196112728 No Longer Active Carlton Hu MD Acti ve TOPAMAX 25 MG ORAL TABLET 1 qHS x 1 week, then 1 BID x 1 week, then 1 qAM and 2 qHS x 1 week, then 2 BID (migraine prevention) T OPIRAMATE 88269468657 No Longer Active Jerica FUENTES Active TOPAMAX 50 MG ORAL TABLET take 1 tab po BID for migraines. 07/02 TOPIRAMATE 22339845553 No Longer Active Jerica FUENTES Active TRIAMCINOLONE ACETONIDE 0.1 % EXTERNAL CREAM apply three roger es daily prn rash TRIAMCINOLONE ACETONIDE 98340833362 No Longer Active Carlton Hu MD Active PAXIL 40 MG ORAL TABLET take 1 tab po qday for depression 0 PAROXETINE HCL 96424763001 Active Carlton Hu MD Active CHERATUSSIN AC 100-10 MG/5ML ORAL SYRUP 5ml po q6hr PRN Cough 20 13/04/14 GUAIFENESIN-CODEINE 55070514495 No Longer Active Carlton Hu MD Active MEDROL 4 MG ORAL TABLET THERAPY PACK 6 tabs on day 1, 5 tabs on day 2, 4 tabs on day 3, 3 tabs on day 4, 2 tabs on day 5, 1 tab on day 6 2013 METHYLPREDNISOLONE 60550676663 No Longer Active Perez Mora MD Active AZITHROMYCIN 250 MG ORAL TABLET 2 po qd x 1 day, then 1 po q d x 4 days AZITHROMYCIN 34047426015 No Longer Active Perez Ambriz MD Active PROPRANOLOL HCL 60 MG ORAL TABLET 1 PO Q D PROPRANOLOL HCL 53077121234 No Longer Active Perez Mora MD Activ e CHERATUSSIN AC 100-10 MG/5ML ORAL SYRUP take one tsp po Q 6h ours prn cough GUAIFENESIN-CODEINE 84460448638 No Longer Active Zia Mora MD Active AUGMENTIN 875-125 MG ORAL TABLET 1 tab by mouth twice daily with food AMOXICILLIN-POT CLAVULANATE 23010599154 No Longer Act nael Perez Mora MD Active CHERATUSSIN AC 100-10 MG/5ML ORAL SYRUP 1 tsp by mouth every 4 hours as needed for cough GUAIFENESIN-CODEINE 03229139079 No Longe r Active Hugo Restrepo MD Active ACETAMINOPHEN-CODEINE #3 300-30 MG ORAL TABLET 1 PO Q 4-6 HRS MS N PAIN ACETAMINOPHEN-CODEINE 36115103068 No Longer Active Hugo Restrepo MD Active LEVAQUIN 500 MG ORAL TABLET take one po QD LEVO FLOXACIN 54330633689 No Longer Active Griffin HERNANDEZ Active PREDNISONE 20 MG ORAL TABLET Take 3 tabs daily for 3 d ays, 2 tabs daily for 3 days, 1 tab daily for 3 days, 1/2 tab daily for 3 days 11/07 PREDNISONE 00240419365 No Longer Active Carlton Hu MD Acti ve AVELOX 400 MG ORAL TABLET 1 tab by mouth daily MOXIFLOXACIN HCL 00772395077 No Longer Active Carlton Hu MD Active CHERATUSSIN AC 100-10 MG/5ML ORAL SYRUP 1 tsp by mouth every 4 hours as needed for cough GUAIFENESIN-CODEINE 62501680839 No Longe r Active Hugo Restrepo MD Active AVELOX 400 MG ORAL TABLET 1 tab by mouth daily MOXIFLOXACIN HCL 11980710722 No Longer Active Marcy De La Rosa MD PhD Active TERBINAFINE HCL 250 MG ORAL TABLET 1 qDay T ERBINAFINE HCL 20684743430 No Longer Active Marcy De La Rosa MD PhD Active CHERATUSSIN AC 100-10 MG/5ML ORAL SYRUP 1 tsp by mouth every 4 hours as needed for cough GUAIFENESIN-CODEINE 18537153484 No Longe r Active Marcy De La Rosa MD PhD Active AVELOX 400 MG ORAL TABLET 1 tab by mouth daily MOXIFLOXACIN HCL 96923112017 No Longer Active Marcy De La Rosa MD PhD Active HYDROCODONE-ACETAMINOPHEN 5-325 MG ORAL TABLET 1 po q 6hr PRN co ugh HYDROCODONE-ACETAMINOPHEN 61047426676 No Longer Active Marcy De La Rosa MD PhD Active PREDNISONE 20 MG ORAL TABLET 2 tabs daily for 3 days, 1 tab daily for 3 days, 1/2 tab daily for 2 days PREDNISONE 90094976163 No Longer Active Carlton Hu MD Active CEFDINIR 300 MG ORAL CAPSULE by mouth twice a day 2011 CEFDINIR 46783034077 No Longer Active Carlton Hu MD Acti ve HYDROCHLOROTHIAZIDE 25 MG ORAL TABLET 1 TAB PO DAILY HYDROCHLOROTHIAZIDE 22605553436 Active Carlton Hu MD A ctive ACETAMINOPHEN-CODEINE #3 300-30 MG ORAL TABLET 1 tablet po q 4-6 hrs prn pain ACETAMINOPHEN-CODEINE 32276664125 No Longer Active Ridge Bess DO Active ZITHROMAX 250 MG ORAL TABLET 2 po today, then 1 po q days 2-5 20 03/07/07 AZITHROMYCIN 06656402380 No Longer Active Carlton Hu MD Active CHERATUSSIN AC 100-10 MG/5ML ORAL SYRUP take 1 tsp po q4-6 h ours prn cough GUAIFENESIN-CODEINE 44342700943 No Longer Active Jayden Hu MD Active ACETAMINOPHEN-CODEINE #3 300-30 MG ORAL TABLET 1 PO Q 4-6 HR PRN PAIN ACETAMINOPHEN-CODEINE 17004140020 No Longer Active Da raimundo Hu MD Active LORTAB 7.5-500 MG/15ML ORAL ELIXIR 7.5 ml po q 4 hour prn cough HYDROCODONE-ACETAMINOPHEN 58211721050 No Longer Active Carlton Hu MD Active PREDNISONE 20 MG ORAL TABLET 1 po bid 3 days, then 1 po q day 3 days PREDNISONE 40056915754 No Longer Active Carlton Hu MD Active CEFDINIR 300 MG ORAL CAPSULE by mouth twice a day 2011 CEFDINIR 90763608157 No Longer Active Carlton Hu MD Acti ve CEFDINIR 300 MG ORAL CAPSULE by mouth twice a day 2010 CEFDINIR 38787258496 No Longer Active Carlton Hu MD Acti ve CEFDINIR 300 MG ORAL CAPSULE by mouth twice a day 2010 CEFDINIR 40145616238 No Longer Active Carlton Hu MD Acti ve TESSALON PERLES 100 MG ORAL CAPSULE 1 tablet by mouth 3 times daily as needed for cough BENZONATATE 96906131831 No Longer Active Carlton Hu MD Active CEFDINIR 300 MG ORAL CAPSULE by mouth twice a day 2010 CEFDINIR 67200089100 No Longer Active Carlton Hu MD Acti ve ZITHROMAX Z-REYNA 250 MG ORAL TABLET 2 today, then 1 daily for 4 d ays AZITHROMYCIN 96318262195 No Longer Active Hugo Restrepo MD Active TESSALON PERLES 100 MG ORAL CAPSULE 1 tablet by mouth 3 times daily as needed for cough TESSALBARRON PERLES 100 MG ORAL CAPSULE 02817 7 BENZONATATE Inactive PREDNISONE 20 MG ORAL TABLET 1 po bid 3 days, then 1 po q day 3 days PREDNISONE 20 MG ORAL TABLET 741684 PREDNISONE [place] ctive LORTAB 7.5-500 MG/15ML ORAL ELIXIR 7.5 [...] cough CHERATUSSIN AC 100-10 MG/5ML ORAL SYRUP 815401 GUAIFENESIN-CODEINE Inactive ACETAMINOPHEN-CODEINE #3 300-30 MG ORAL TABLET 1 tablet po q 4-6 hrs prn pain ACETAMINOPHEN-CODEINE #3 300-30 MG ORAL TABLET ACETAMINOPHEN-CODEINE Inactive HYDROCODONE-ACETAMINOPHEN 5-325 MG ORAL TABLET 1 po q 6hr PRN co ugh HYDROCODONE-ACETAMINOPHEN 5-325 MG ORAL TABLET 483033 HYDROCODONE-ACETAMINOPHEN Inactive AVELOX 400 MG ORAL TABLET 1 tab by mouth daily AVELOX 400 MG ORAL TABLET 855469 MOXIFLOXACIN HCL Inactive CHERATUSSIN AC 100-10 MG/5ML ORAL SYRUP 1 tsp by mouth every 4 hours as needed for cough CHERATUSSIN AC 100-10 MG/5ML ORAL SYRUP 9 36223 GUAIFENESIN-CODEINE Inactive TERBINAFINE HCL 250 MG ORAL TABLET 1 qDay 07/08 TERBINAFINE HCL 250 MG ORAL TABLET 625579 TERBINAFINE HCL Inactive CHERATUSSIN AC 100-10 MG/5ML ORAL SYRUP 1 tsp by mouth every 4 hours as needed for cough CHERATUSSIN AC 100-10 MG/5ML ORAL SYRUP 9 65256 GUAIFENESIN-CODEINE Inactive ACETAMINOPHEN-CODEINE #3 300-30 MG ORAL TABLET 1 PO Q 4-6 HRS MS N PAIN ACETAMINOPHEN-CODEINE #3 300-30 MG ORAL TABLET ACETAMINOPHEN-CODEINE Inactive CHERATUSSIN AC 100-10 MG/5ML ORAL SYRUP 1 tsp by mouth every 4 hours as needed for cough CHERATUSSIN AC 100-10 MG/5ML ORAL SYRUP 9 67548 GUAIFENESIN-CODEINE Inactive AUGMENTIN 875-125 MG ORAL TABLET 1 tab by mouth twice daily with food AUGMENTIN 875-125 MG ORAL TABLET AMOXICIL MADELINE-POT CLAVULANATE Inactive CHERATUSSIN AC 100-10 MG/5ML ORAL SYRUP take one tsp po Q 6h ours prn cough CHERATUSSIN AC 100-10 MG/5ML ORAL SYRUP 308027 GUAIFENESIN-CODEINE Inactive PROPRANOLOL HCL 60 MG ORAL TABLET 1 PO Q D PROPRANOLOL HCL 60 MG ORAL TABLET 298580 PROPRANOLOL HCL Inactive TOPAMAX 50 MG ORAL TABLET take 1 tab po BID for migraines. 07/02 TOPAMAX 50 MG ORAL TABLET 646747 TOPIRAMATE Inacti ve TOPAMAX 25 MG ORAL TABLET 1 qHS x 1 week, then 1 BID x 1 week, then 1 qAM and 2 qHS x 1 week, then 2 BID (migraine prevention) TOPAMAX 25 MG ORAL TABLET 325995 TOPIRAMATE Inactive LYRICA 75 MG ORAL CAPSULE TAKE 1 CAPSULE BY MOUTH TWICE DAILY LYRICA 75 MG ORAL CAPSULE PREGABALIN Inactive SYMBICORT 160-4.5 MCG/ACT INHALATION AEROSOL 2 puffs bid wit h rinse after SYMBICORT 160-4.5 MCG/ACT INHALATION AEROSOL BUDESONIDE- FORMOTEROL FUMARATE Inactive PROMETHAZINE-CODEINE 6.25-10 MG/5ML ORAL SYRUP 1 tsp b y mouth every 8 hours prn cough PROMETHAZINE-CODEINE 6.25-10 MG/ 5ML ORAL SYRUP 287524 PROMETHAZINE-CODEINE Inactive CYMBALTA 30 MG ORAL CAPSULE DELAYED RELEASE PARTICLES 1 cap by mouth daily CYMBALTA 30 MG ORAL CAPSULE DELAYED RELE ASE PARTICLES 092914 DULOXETINE HCL Inactive PREMARIN 0.625 MG ORAL TABLET TAKE 1 TAB BY MOUTH DAILY PREMARIN 0.625 MG ORAL TABLET ESTROGENS CONJUGATED Inactive CHERATUSSIN AC 100-10 MG/5ML ORAL SYRUP 1 tsp by mouth every 4 hours as needed for cough CHERATUSSIN AC 100-10 MG/5ML ORAL SYRUP 9 12081 GUAIFENESIN-CODEINE Inactive PROMETHAZINE-CODEINE 6.25-10 MG/5ML ORAL SYRUP 1 tsp b y mouth every 6 hours if needed for cough PROMETHAZINE-CODEINE 6.25-10 MG/5ML ORAL SYRUP 727993 PROMETHAZINE-CODEINE Inactive CHERATUSSIN AC 100-10 MG/5ML ORAL SYRUP 1 tsp by mouth every 4 hours as needed for cough CHERATUSSIN AC 100-10 MG/5ML ORAL SYRUP 9 77921 GUAIFENESIN-CODEINE Inactive FLUTICASONE PROPIONATE 50 MCG/ACT NASAL SUSPENSION 1 t o 2 sprays each nostril daily FLUTICASONE PROPIONATE 50 MCG/AC T NASAL SUSPENSION 7526670 FLUTICASONE PROPIONATE Inactive PREDNISONE 20 MG ORAL TABLET 3 tab PO qd x 2d, 2 tab P O qd x 2d, 1 tab PO qd x 2d, 1/2 tab PO qd x 2d PREDNISONE 20 MG ORAL TAB LET 635914 PREDNISONE Inactive LEVOFLOXACIN 500 MG ORAL TABLET 1 tab PO daily x 10 days LEVOFLOXACIN 500 MG ORAL TABLET 656897 LEVOFLOXACIN Inactive CYCLOBENZAPRINE HCL 10 MG ORAL TABLET 1 tablet by mouth BID prn had pain CYCLOBENZAPRINE HCL 10 MG ORAL TABLET 940675 CYCLOBENZAPRINE HCL Inactive ZOCOR 40 MG ORAL [...] FLUTICASONE PROPIO EFE 50 MCG/ACT NASAL SUSPENSION 9065070 FLUTICASONE PROPIONATE Inactive TUSSIONEX PENNKINETIC ER 10-8 [...] three days PREDNISONE 20 MG ORAL TABLET 247674 PREDNIS ONE Inactive PROAIR HFA 108 (90 BASE) MCG/ACT INHALATION AEROSOL SO LUTION 2 puffs four times a day as needed PROAIR HFA 108 (90 B ASE) MCG/ACT INHALATION AEROSOL SOLUTION ALBUTEROL SULFATE Inactive PREDNISONE 20 MG ORAL TABLET two tabs by mouth today, then one tab by mouth days two and three and four PREDNISONE 20 MG ORAL TAB LET 590656 PREDNISONE Inactive TUSSIONEX PENNKINETIC ER 10-8 MG/5ML [...] bid 04/20 TOPAMAX 100 MG ORAL TABLET 817046 TOPIRAMATE Inactive CYMBALTA 30 MG ORAL CAPSULE DELAYED RELEASE PARTICLES 1 cap by mouth daily for depression CYMBALTA 30 MG ORAL CAPSULE DELAYED RELEASE PARTICLES 053354 DULOXETINE HCL Inactive ZITHROMAX Z-REYNA 250 MG ORAL TABLET 2 today, then 1 daily for 4 d ays ZITHROMAX Z-REYNA 250 MG ORAL TABLET 288847 AZITHROMYCIN Inactive CEFDINIR 300 MG ORAL CAPSULE by mouth twice a day 2010 CEFDINIR 300 MG ORAL CAPSULE 939335 CEFDINIR Inactive CEFDINIR 300 MG ORAL CAPSULE by mouth twice a day 2010 CEFDINIR 300 MG ORAL CAPSULE 726443 CEFDINIR Inactive CEFDINIR 300 MG ORAL CAPSULE by mouth twice a day 2010 CEFDINIR 300 MG ORAL CAPSULE 285497 CEFDINIR Inactive CEFDINIR 300 MG ORAL CAPSULE by mouth twice a day 2011 CEFDINIR 300 MG ORAL CAPSULE 967219 CEFDINIR Inactive ZITHROMAX 250 MG ORAL TABLET 2 po today, then 1 po q days 2-5 03/07/07 ZITHROMAX 250 MG ORAL TABLET 207939 AZITHROMYCIN [place] ctive CEFDINIR 300 MG ORAL CAPSULE by mouth twice a day 2011 CEFDINIR 300 MG ORAL CAPSULE 796009 CEFDINIR Inactive PREDNISONE 20 MG ORAL TABLET 2 tabs daily for 3 days, 1 tab daily for 3 days, 1/2 tab daily for 2 days PREDNISONE 20 MG ORAL T ABLET 715431 PREDNISONE Inactive AVELOX 400 MG ORAL TABLET 1 tab by mouth daily AVELOX 400 MG ORAL TABLET 744123 MOXIFLOXACIN HCL Inactive AVELOX 400 MG ORAL TABLET 1 tab by mouth daily AVELOX 400 MG ORAL TABLET 709801 MOXIFLOXACIN HCL Inactive PREDNISONE 20 MG ORAL TABLET Take 3 tabs daily for 3 d ays, 2 tabs daily for 3 days, 1 tab daily for 3 days, 1/2 tab daily for 3 days 11/07 PREDNISONE 20 MG ORAL TABLET 564767 PREDNISONE Inactive LEVAQUIN 500 MG ORAL TABLET take one po QD LEVAQUIN 500 MG ORAL TABLET 347156 LEVOFLOXACIN Inactive AZITHROMYCIN 250 MG ORAL TABLET 2 po qd x 1 day, then 1 po q d x 4 days AZITHROMYCIN 250 MG ORAL TABLET 358065 AZITHROMY GIOVANNI Inactive MEDROL 4 MG ORAL TABLET THERAPY PACK 6 tabs on day 1, 5 tabs on day 2, 4 tabs on day 3, 3 tabs on day 4, 2 tabs on day 5, 1 tab on day 6 2013 MEDROL 4 MG ORAL TABLET THERAPY PACK 031438 METHYLPREDNISOLONE [place] ctive CHERATUSSIN AC 100-10 MG/5ML ORAL SYRUP 5ml po q6hr PRN Cough 20 13/04/14 CHERATUSSIN AC 100-10 MG/5ML ORAL SYRUP 337807 GUAIFENE SIN-CODEINE Inactive TRIAMCINOLONE ACETONIDE 0.1 % EXTERNAL CREAM apply three roger es daily prn rash TRIAMCINOLONE ACETONIDE 0.1 % EXTERNAL CREAM 101 4314 TRIAMCINOLONE ACETONIDE Inactive AZITHROMYCIN 250 MG ORAL TABLET 2 po qd x 1 day, then 1 po q d x 4 days AZITHROMYCIN 250 MG ORAL TABLET 333107 AZITHROMY GIOVANNI Inactive MEDROL 4 MG ORAL TABLET THERAPY PACK 6 pills x 1 day, then 5 pills x 1 day then 4 pills x 1 day, then 3 pills x 1 day, then 2 pills x 1 day, then 1 pill x 1 day, then stop MEDROL 4 MG ORAL TABLET THERAPY PACK 385843 METHYLPREDNISOLONE Inactive AMOXICILLIN 500 MG ORAL CAPSULE 1 tab by mouth 3 times daily x 10 days AMOXICILLIN 500 MG ORAL CAPSULE 832114 AMOXICILL IN Inactive AMOXICILLIN 500 MG ORAL CAPSULE 1 tab by mouth 3 times daily x 10 days AMOXICILLIN 500 MG ORAL CAPSULE 718664 AMOXICILL IN Inactive ZITHROMAX 250 MG ORAL TABLET 2 po today, then 1 po q days 2-5 20 12/08/14 ZITHROMAX 250 MG ORAL TABLET 765455 AZITHROMYCIN Greer ctive AUGMENTIN 875-125 MG ORAL TABLET 1 po BID x 10 days 20 13/01/20 AUGMENTIN 875-125 MG ORAL TABLET AMOXICILLIN-POT CLAVULANATE Inactive ZITHROMAX Z-REYNA 250 MG ORAL TABLET 2 today, then 1 daily for 4 d ays ZITHROMAX Z-REYNA 250 MG ORAL TABLET [id number] AZITHROMYCIN Inactive ZITHROMAX 250 MG ORAL TABLET 2 po today, then 1 po q days 2-5 20 14/03/21 ZITHROMAX 250 MG ORAL TABLET 109421 AZITHROMYCIN Greer ctive ZITHROMAX Z-REYNA 250 MG ORAL TABLET 2 today, then 1 daily for 4 d ays ZITHROMAX Z-REYNA 250 MG ORAL TABLET 175314 AZITHROMYCIN Inactive CEFDINIR 300 MG ORAL CAPSULE 1 po BID x 10 days 06/21 CEFDINIR 300 MG ORAL CAPSULE 474577 CEFDINIR Inactive ZITHROMAX 250 MG ORAL TABLET 2 po today, then 1 po q days 2-5 20 13/08/10 ZITHROMAX 250 MG ORAL TABLET 343657 AZITHROMYCIN [place] [facility] LEVAQUIN 500 MG ORAL TABLET 1 tablet by mouth daily 20 13/09/24 LEVAQUIN 500 MG ORAL TABLET 19971102 LEVOFLOXACIN Inactive SINGULAIR 10 MG ORAL TABLET 1 po qday for allergies 20 14/01/12 SINGULAIR 10 MG ORAL TABLET 20010504 MONTELUKAST SODIUM Inactive AMOXICILLIN 500 MG ORAL CAPSULE 2 po BID x 10 days 201 09/29/08 AMOXICILLIN 500 MG ORAL CAPSULE 765259 AMOXICILLIN Inactive PREDNISONE 20 MG ORAL TABLET 2 tabs daily for 3 days, 1 tab daily for 3 days, 1/2 tab daily for 2 days PREDNISONE 20 MG ORAL T ABLET 821295 PREDNISONE Inactive ZITHROMAX Z-REYNA 250 MG ORAL TABLET 2 today, then 1 daily for 4 d ays ZITHROMAX Z-REYNA 250 MG ORAL TABLET 304268 AZITHROMYCIN Inactive PREDNISONE 20 MG ORAL TABLET 2 tabs daily for 3 days, 1 tab daily for 3 days, 1/2 tab daily for 2 days PREDNISONE 20 MG ORAL T ABLET 081500 PREDNISONE Inactive ZITHROMAX 250 MG ORAL TABLET 2 po today, then 1 po q days 2-5 20 14/09/04 ZITHROMAX 250 MG ORAL TABLET 798863 AZITHROMYCIN [place] [facility] AMOXICILLIN 500 MG ORAL CAPSULE 1 cap by mouth three times a day AMOXICILLIN 500 MG ORAL CAPSULE 512706 AMOXICILLIN Inactive TERBINAFINE HCL 250 MG ORAL TABLET 1 qDay for nail fungus 7 TERBINAFINE HCL 250 MG ORAL TABLET 352105 TERBINAFINE HCL Inact nael AUGMENTIN 875-125 MG ORAL TABLET 1 po BID x 10 days 16/03/22 AUGMENTIN 875-125 MG ORAL TABLET AMOXICILLIN-POT CLAVULANATE Inactive PREDNISONE 20 MG ORAL TABLET 2 po qd x 5 days PREDNISONE 20 MG ORAL TABLET 649532 PREDNISONE Inactive AZITHROMYCIN 250 MG ORAL TABLET 2 po qd x 1 day, then 1 po q d x 4 days AZITHROMYCIN 250 MG ORAL TABLET 016066 AZITHROMY GIOVANNI Inactive PREDNISONE 50 MG ORAL TABLET Take 50 mg dialy for 6 day s 7 PREDNISONE 50 MG ORAL TABLET 242039 PREDNISONE Inactive AUGMENTIN 875-125 MG ORAL TABLET 1 po BID x 10 days 20 18/04/16 AUGMENTIN 875-125 MG ORAL TABLET AMOXICILLIN-POT CLAVULANATE Inactive DOXYCYCLINE HYCLATE 100 MG ORAL CAPSULE 1 cap by mouth twice latasha ly DOXYCYCLINE HYCLATE 100 MG ORAL CAPSULE 8972768 DOXYCYCL INE HYCLATE Inactive PREDNISONE 20 MG ORAL TABLET Take 2 tabs day 1 and 2 and 1 t ab days 3 and 4 PREDNISONE 20 MG ORAL TABLET 578842 PREDNISONE Inactive Vital Signs Date Name Value [...] negative Encounters Code Encounter Date Provider Facility CPT-58960 Level 3 Est. Patient 16:53:54 CDT May haas MD [facility]-15317 [id number] Vst-Est Level IV 08:41:[address] Carlton Hu MD [facility]-15026 Level 3 Est. Patient 09:46:49 SQUAD LEADER David lion [facility]-03688 [id number] Vst-Est Level III 11:12:16 CDT Yanet Bess DO [facility]-70681 Level 3 Est. Patient 11:34:49 SQUAD LEADER Perez Mora MD [facility]-71164 Level 4 Est. Patient 09:51:32 SQUAD LEADER Carlton rich MD [facility]-62644 Level 3 Est. Patient 10:26:00 SQUAD LEADER Elise stephenson INFORMATICS NURSE SPECIALIST [facility]-58210 Level 3 Est. Patient 13:35:41 SQUAD LEADER Carlton rich MD [facility]-48711 Level 3 Est. Patient 10:03:52 SQUAD LEADER Carlton rich MD [facility]-24827 Level 3 Est. Patient 12:17:50 CDT Hugo Restrepo MD [facility]-18301 Level 3 Est. Patient 13:42:38 CDT Elise Are [facility] CPT-48479 Level 3 Est. Patient 13:23:51 CDT Diya Mariana cobian [facility] CPT-87829 Level 3 Est. Patient 14:22:19 SQUAD LEADER Diya cobian [facility] CPT-34821 Level 3 Est. Patient 10:11:46 CDT Carlton rich MD [facility] CPT-20469 Level 3 Est. Patient 17:29:43 CDT Elise Are [facility] CPT-08942 Level 3 Est. Patient 11:58:06 CDT Elise Are [facility] CPT-58225 Level 4 Est. Patient 14:36:51 CDT Carlton rich MD [facility] CPT-71170 Level 3 Est. Patient 18:16:00 SQUAD LEADER Blaine HERNANDEZ [facility] CPT-30997 Level 3 Est. Patient 09:45:49 SQUAD LEADER Carlton rich MD [facility] CPT-85938 Level 3 Est. Patient 13:19:20 CDT Carlton rich MD [facility] CPT-83897 Level 3 Est. Patient 13:06:43 CDT Ridge tam DO [facility] CPT-53184 Level 3 Est. Patient 10:03:07 CDT Perez Mora MD [facility] CPT-03709 Level 3 Est. Patient 19:50:35 SQUAD LEADER Carlton rich MD [facility] CPT-46178 Level 4 Est. Patient 18:05:01 SQUAD LEADER Carlton rich MD [facility] CPT-56258 Level 3 Est. Patient 10:45:55 SQUAD LEADER Hugo Restrepo MD [facility] CPT-72852 Level 3 Est. Patient 14:12:49 CDT Griffin HERNANDEZ [facility] CPT-34544 Level 3 Est. Patient 17:37:24 CDT Carlton rich MD [facility] CPT-19302 Level 3 Est. Patient 16:51:54 CDT Carlton rich MD [facility] CPT-38720 Level 3 Est. Patient 12:18:11 CDT Hugo Restrepo MD [facility] CPT-98867 Level 3 Est. Patient 11:30:25 CDT Marcy crisostomo MD PhD [facility] CPT-20942 Level 3 Est. Patient 12:00:47 SQUAD LEADER Carlton rich MD [facility] CPT-37020 Level 3 Est. Patient 16:31:06 SQUAD LEADER Carlton rich MD [facility] CPT-58443 Level 3 Est. Patient 16:23:24 SQUAD LEADER Ridge tam DO [facility] CPT-67015 Level 3 Est. Patient 12:34:12 CDT Carlton rich MD [facility] CPT-37750 Level 2 Est. Patient 15:43:33 CDT Robi armstrong MD [facility] CPT-15904 Level 4 Est. Patient 14:04:44 CDT Carlton rich MD [facility] CPT-36810 Level 3 Est. Patient 05:47:59 CDT Ridge tam [facility] CPT-95032 Level 3 Est. Patient 13:12:53 SQUAD LEADER Carlton rich MD [facility] CPT-71722 Level 3 Est. Patient 14:26:53 CDT Hugo Restrepo MD [facility] Procedures Code Procedure Name Date Entry Date Standard Desc ription CPT-000 Give Appropriate Flu Vaccine 14:14:31 CDT 2 CPT-J1040 Depo Medrol 80 mg (Methyl Prednisolone A cetate) 10:42:44 CDT CPT-J1100 Decadron 8mg (Dexamethasone) 10:42:44 CDT 2 CPT-J0696 Rocephin 1gm Inj Solr 14:32:13 CDT CPT-J1020 Depo Medrol 60 mg (Methyl Prednisolone A cetate) 14:32:13 CDT CPT-J1100 Decadron 6mg (Dexamethasone) 14:32:13 CDT 2 CPT-34866 Hip bilat min 2V w AP pelvis 13:16:20 CDT 2 CPT-52832 Pelvis only 13:07:33 CDT CPT-26301 Spec Collection and Handling Fee 11:25:12 C DT CPT-39158 Fluzone Quadrivalent Intramuscular Suspe nsion 0.5 ML 14:31:55 CDT CPT-29969 Abx/Therapy Injection 13:28:47 SQUAD LEADER CPT-J2930 Solu Medrol 125 mg (Methyl Prednisolone Sodium Succinate) 12:00:47 SQUAD LEADER CPT-32277 Venipuncture Draw Fee 11:33:31 CDT CPT-15201 EKG Trac and Interp 11:21:09 CDT CPT-18079 Chest 2V Frontal and Lat 11:21:09 CDT 12/15 CPT-41234 Venipuncture Draw Fee 08:02:34 CDT CPT-60586 Chest 2V Frontal and Lat 05:47:59 CDT 06/05
--- OUTSIDE RECORDS SUMMARY | 2019-10-08 09:05 | XMS REPORT | Clinical Summary ---
Author Author Caitlin, Juliana Martinez Organization [facility] Address Unknown Phone Unavailable Allergies, Adverse Reactions, Alerts Allergy Name Reaction Description Start Date Severity Status Pr ovider No Known Allergies ALFREDO Yanez Conditions or Problems Problem Name Problem Code Onset Date Status Entry Date Provider Comment Standard Description Annotate BRONCHITIS 490 Inactive Hugo Restrepo MD Bronchitis, not specified as acute or chronic FH COLON CANCER V16.0 Active Carlton uH MD Family history of malignant neoplasm of [...] Unspecified sinusitis (chronic) Bronchitis-Acute 466.0 Resolved Hugo Restreop MD Acute bronchitis URI - acute 465.9 [...] dominguez MD Pelvic pain, acute ICD-789.09 Inactive Huog Restrepo MD Sinusitis ICD-473.9 Inactive Hugo Restrepo [...] 1 capsule at night PENTOSAN POLYSULFATE SODIUM 05064442767 Active 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 CYMBALTA 30 MG ORAL CAPSULE DELAYED RELEASE PARTICLES 1 cap by mouth daily for depression DULOXETINE HCL 90608802062 No Longer Active Carlton Hu MD Active CYMBALTA 60 MG ORAL CAPSULE DELAYED RELEASE PARTICLES 1 cap by mouth daily for mood and pain DULOXETINE HCL 55509515510 Active Carlton Hu MD Active TUSSIONEX PENNKINETIC ER 10-8 MG/5ML ORAL SUSPENSION E XTENDED RELEASE 5ml po q12hr PRN Cough HYDROCOD POLST-CHLORPHEN POLST 50813662252 Active David Marianne MEDICAL DIR Active PREDNISONE 20 MG ORAL TABLET Take 2 tabs day 1 and 2 and 1 t ab days 3 and 4 PREDNISONE 00651996371 No Longer Active David Marianne MEDICAL DIR Active DOXYCYCLINE HYCLATE 100 MG ORAL CAPSULE 1 cap by mouth twice latasha ly DOXYCYCLINE HYCLATE 35302877190 No Longer Active David Marianne MEDICAL DIR Active TOPAMAX 100 MG ORAL TABLET Take 1 tablet po bid TOPIRAMATE 41584668557 No Longer Active David Marianne MEDICAL DIR Active TUSSIONEX PENNKINETIC ER 10-8 MG/5ML ORAL SUSPENSION E XTENDED RELEASE 5ml po q12hr PRN Cough HYDROCOD POLST-CHLORPHEN POLST 5 1857702239 No Longer Active David Marianne MEDICAL DIR Active AUGMENTIN 875-125 MG ORAL TABLET 1 po BID x 10 days 18/04/16 AMOXICILLIN-POT CLAVULANATE 53775507713 No Longer Active David Marianne MEDICAL DIR Active PREDNISONE 50 MG ORAL TABLET Take 50 mg dialy for 6 day s 7 PREDNISONE 48094577896 No Longer Active David Marianne MEDICAL DIR Active TUSSIONEX PENNKINETIC ER 10-8 MG/5ML ORAL SUSPENSION E XTENDED RELEASE 5ml po q12hr PRN Cough HYDROCOD POLST-CHLORPHEN POLST 5 0825674907 No Longer Active Cherelle Torres RN Active PREDNISONE 20 MG ORAL TABLET two tabs by mouth today, then one tab by mouth days two and three and four PREDNISONE 59245732662 No Lo nger Active Cherelle Torres RN Active AZITHROMYCIN 250 MG ORAL TABLET 2 po qd x 1 day, then 1 po q d x 4 days AZITHROMYCIN 66247026886 No Longer Active Ridge Bess DO Active PREDNISONE 20 MG ORAL TABLET 2 po qd x 5 days P REDNISONE 51514894615 No Longer Active Perez Mora MD Active PROAIR HFA 108 (90 BASE) MCG/ACT INHALATION AEROSOL SO LUTION 2 puffs four times a day as needed ALBUTEROL SULFATE 80805855681 No Long er Active Becky Cuellar RMA Active ASPIRIN 81 MG ORAL TABLET 1 po qd ASPIRIN 42276825384 Active Carlton Hu MD Active PREDNISONE 20 MG ORAL TABLET 1 tab twice daily for 3 d ay, then one daily for three days PREDNISONE 66906218887 No Longer Active Carlton Hu MD Active AUGMENTIN 875-125 MG ORAL TABLET 1 po BID x 10 days 16/03/22 AMOXICILLIN-POT CLAVULANATE 43186551546 No Longer Active Elise Garcia APRN Active TERBINAFINE HCL 250 MG ORAL TABLET 1 qDay for nail fungus 7 TERBINAFINE HCL 55143693006 No Longer Active Carlton Hu MD A ctive AMOXICILLIN 500 MG ORAL CAPSULE 1 cap by mouth three times a day AMOXICILLIN 60620064698 No Longer Active Carlton Hu MD Active ELMIRON 100 MG ORAL CAPSULE 2 tablets in the am and 1 tablet at hs PENTOSAN POLYSULFATE SODIUM 99416601461 No Longer Active Robert Hu MD Active MUCINEX D 60-600 MG ORAL TABLET EXTENDED RELEASE 12 HOUR 1 t ab po q am PSEUDOEPHEDRINE-GUAIFENESIN 90840413448 No Longer Act nael Carlton Hu MD Active MUCINEX DM MAXIMUM STRENGTH 60-1200 MG ORAL TABLET EXT ENDED RELEASE 12 HOUR 1 tab po q am DEXTROMETHORPHAN-GUAIFENESIN 07451360271 No Longer Active Carlton Hu MD Active TUSSIONEX PENNKINETIC ER 10-8 MG/5ML ORAL SUSPENSION E XTENDED RELEASE 5ml po q12hr PRN Cough HYDROCOD POLST-CHLORPHEN POLST 5 3127138834 No Longer Active Carlton Hu MD Active POTASSIUM CHLORIDE ER 20 MEQ ORAL TABLET EXTENDED RELE ASE Take 1 by mouth 4 times daily for 7 days POTASSIUM CHLORIDE 75792362216 No Longer Active Carlton Hu MD Active ZITHROMAX 250 MG ORAL TABLET 2 po today, then 1 po q days 2-5 20 14/09/04 AZITHROMYCIN 05941629106 No Longer Active Elise Garcia APRN Active TUSSIONEX PENNKINETIC ER 10-8 MG/5ML ORAL SUSPENSION E XTENDED RELEASE 5 ml twice a day as needed for cough HYDROCOD POLST-CHLORPH EN POLST 14314180718 No Longer Active Elise Garcia APRN Active MONTELUKAST SODIUM 10 MG ORAL TABLET 1 po daily for Allergy MONTELUKAST SODIUM 48121141854 Active Carlton Hu MD Ac tive TUSSIONEX PENNKINETIC ER 10-8 MG/5ML ORAL SUSPENSION E XTENDED RELEASE 5ml po q12hr PRN Cough HYDROCOD POLST-CHLORPHEN POLST 5 2896802914 No Longer Active Hugo Restrepo MD Active GABAPENTIN 100 MG ORAL CAPSULE 1 po BID for fibromyalgia GABAPENTIN 98831622420 Active ALFREDO Holly Active LYRICA 100 MG ORAL CAPSULE Take 1 tab po BID for fibromyalgia 20 11/08/21 PREGABALIN 78348563252 No Longer Active Elise Garcia APRN A ctive PREDNISONE 20 MG ORAL TABLET 2 tabs daily for 3 days, 1 tab daily for 3 days, 1/2 tab daily for 2 days PREDNISONE 31252080308 No Longer Active Diya De Guzman APRN Active TUSSIONEX PENNKINETIC ER 10-8 MG/5ML ORAL SUSPENSION E XTENDED RELEASE 5 mL PO q 12 hrs PRN cough HYDROCOD POLST-CHLORPHEN POLST 239721 47049 No Longer Active Jiriley De Guzman APRN Active FLUTICASONE PROPIONATE 50 MCG/ACT NASAL SUSPENSION 2 s prays each nostril daily until bottle is empty FLUTICASONE PROPIONATE 717020668 99 No Longer Active Diya De Guzman APRN Active ASMANEX 60 METERED DOSES 220 MCG/INH INHALATION AEROSO L POWDER BREATH ACTIVATED 1 puff bid with rinse after MOMETASONE FUROATE 0232290 4102 No Longer Active Diya De Guzman APRN Active ZITHROMAX Z-REYNA 250 MG ORAL TABLET 2 today, then 1 daily for 4 d ays AZITHROMYCIN 72426427815 No Longer Active Elise Garcia APRN Active TUSSIONEX PENNKINETIC ER 10-8 MG/5ML ORAL SUSPENSION E XTENDED RELEASE 5ml po q12hr PRN Cough HYDROCOD POLST-CHLORPHEN POLST 5 9280158005 No Longer Active Elise Garcia APRN Active PREDNISONE 20 MG ORAL TABLET 2 tabs daily for 3 days, 1 tab daily for 3 days, 1/2 tab daily for 2 days PREDNISONE 42376383446 No Longer Active Diya De Guzman APRN Active AMOXICILLIN 500 MG ORAL CAPSULE 2 po BID x 10 days 201 09/29/08 AMOXICILLIN 95818368969 No Longer Active Diya De Guzman APRN Act nael SINGULAIR 10 MG ORAL TABLET 1 po qday for allergies 20 14/01/12 MONTELUKAST SODIUM 66439463420 No Longer Active Carlton Hu MD Active LEVAQUIN 500 MG ORAL TABLET 1 tablet by mouth daily 20 13/09/24 LEVOFLOXACIN 42140830659 No Longer Active Carlton Hu MD Acti ve FLUTICASONE PROPIONATE 50 MCG/ACT NASAL SUSPENSION 2 s prays each nostril daily for 2 weeks, then 1 spray each nostril daily. FLUTICASONE PROPIONATE 41441132262 Active Carlton Hu MD Active ZITHROMAX 250 MG ORAL TABLET 2 po today, then 1 po q days 2-5 20 13/08/10 AZITHROMYCIN 03561626513 No Longer Active Elise Garcia APRN Active XANAX 0.5 MG ORAL TABLET one tablet by mouth daily prn anxiety 2015 ALPRAZOLAM 95179353954 Active ALFREDO Holly Active CEFDINIR 300 MG ORAL CAPSULE 1 po BID x 10 days CEFDINIR 85132369560 No Longer Active Carlton Hu MD Active ZOCOR 40 MG ORAL TABLET 1 tab by mouth daily SI MVASTATIN 50510795606 No Longer Active Carlton Hu MD Active CYCLOBENZAPRINE HCL 10 MG ORAL TABLET 1 tablet by mouth BID prn had pain CYCLOBENZAPRINE HCL 92368954653 No Longer Active Jayden Hu MD Active LEVOFLOXACIN 500 MG ORAL TABLET 1 tab PO daily x 10 days LEVOFLOXACIN 19574937671 No Longer Active Carlton Hu MD Acti ve PREDNISONE 20 MG ORAL TABLET 3 tab PO qd x 2d, 2 tab P O qd x 2d, 1 tab PO qd x 2d, 1/2 tab PO qd x 2d PREDNISONE 49357925118 No Lo nger Active Carlton Hu MD Active FLUTICASONE PROPIONATE 50 MCG/ACT NASAL SUSPENSION 1 t o 2 sprays each nostril daily FLUTICASONE PROPIONATE 39989420641 No Longer Ac tive Blaine HERNANDEZ Active CHERATUSSIN AC 100-10 MG/5ML ORAL SYRUP 1 tsp by mouth every 4 hours as needed for cough GUAIFENESIN-CODEINE 18400264160 No Longe r Active Blaine HERNANDEZ Active PROMETHAZINE-CODEINE 6.25-10 MG/5ML ORAL SYRUP 1 tsp b y mouth every 6 hours if needed for cough PROMETHAZINE-CODEINE 01195519389 No Longer Active Blaine HERNANDEZ Active CHERATUSSIN AC 100-10 MG/5ML ORAL SYRUP 1 tsp by mouth every 4 hours as needed for cough GUAIFENESIN-CODEINE 48505935769 No Longe r Active Blaine HERNANDEZ Active ZITHROMAX Z-REYNA 250 MG ORAL TABLET 2 today, then 1 daily for 4 d ays AZITHROMYCIN 04947752753 No Longer Active Columba Raida Act nael ZITHROMAX 250 MG ORAL TABLET 2 po today, then 1 po q days 2-5 20 14/03/21 AZITHROMYCIN 60307558099 No Longer Active Carlton Hu MD Active ZITHROMAX Z-REYNA 250 MG ORAL TABLET 2 today, then 1 daily for 4 d ays AZITHROMYCIN 44515784876 No Longer Active Columba Raida Act nael AUGMENTIN 875-125 MG ORAL TABLET 1 po BID x 10 days 13/01/20 AMOXICILLIN-POT CLAVULANATE 44811933196 No Longer Active Diya De Guzman APRN Active ZITHROMAX 250 MG ORAL TABLET 2 po today, then 1 po q days 2-5 20 12/08/14 AZITHROMYCIN 31779382233 No Longer Active Carlton Hu MD Active TRAMADOL HCL 50 MG ORAL TABLET 1 po tid with ES Tylenol TRAMADOL HCL 19192609859 Active ALFREDO Holly Active PREMARIN 0.625 MG ORAL TABLET TAKE 1 TAB BY MOUTH DAILY ESTROGENS CONJUGATED 73670463584 No Longer Active Ridge Bess DO A ctive CYMBALTA 30 MG ORAL CAPSULE DELAYED RELEASE PARTICLES 1 cap by mouth daily DULOXETINE HCL 60491152408 No Longer Active Ridge tam DO Active AMOXICILLIN 500 MG ORAL CAPSULE 1 tab by mouth 3 times daily x 10 days AMOXICILLIN 85621882322 No Longer Active Carlton bustamante MD Active AMOXICILLIN 500 MG ORAL CAPSULE 1 tab by mouth 3 times daily x 10 days AMOXICILLIN 11664193271 No Longer Active Carlton bustamante MD Active PROMETHAZINE-CODEINE 6.25-10 MG/5ML ORAL SYRUP 1 tsp b y mouth every 8 hours prn cough PROMETHAZINE-CODEINE 06928380733 No Longer Acti ve Carlton Hu MD Active MEDROL 4 MG ORAL TABLET THERAPY PACK 6 pills x 1 day, then 5 pills x 1 day then 4 pills x 1 day, then 3 pills x 1 day, then 2 pills x 1 day, then 1 pill x 1 day, then stop METHYLPREDNISOLONE 24993076042 No Long er Active Perez Mora MD Active AZITHROMYCIN 250 MG ORAL TABLET 2 po qd x 1 day, then 1 po q d x 4 days AZITHROMYCIN 42199330416 No Longer Active Peerz Ambriz MD Active SYMBICORT 160-4.5 MCG/ACT INHALATION AEROSOL 2 puffs bid wit h rinse after BUDESONIDE-FORMOTEROL FUMARATE 15655134456 N o Longer Active Perez Mora MD Active LYRICA 75 MG ORAL CAPSULE TAKE 1 CAPSULE BY MOUTH TWICE DAILY PREGABALIN 14432693392 No Longer Active Carlton Hu MD Acti ve TOPAMAX 25 MG ORAL TABLET 1 qHS x 1 week, then 1 BID x 1 week, then 1 qAM and 2 qHS x 1 week, then 2 BID (migraine prevention) T OPIRAMATE 13082821389 No Longer Active Jerica FUENTES Active TOPAMAX 50 MG ORAL TABLET take 1 tab po BID for migraines. 07/02 TOPIRAMATE 13458950320 No Longer Active Jerica FUENTES Active TRIAMCINOLONE ACETONIDE 0.1 % EXTERNAL CREAM apply three roger es daily prn rash TRIAMCINOLONE ACETONIDE 31552109904 No Longer Active Carlton Hu MD Active PAXIL 40 MG ORAL TABLET take 1 tab po qday for depression 0 PAROXETINE HCL 22154031867 Active Carlton Hu MD Active CHERATUSSIN AC 100-10 MG/5ML ORAL SYRUP 5ml po q6hr PRN Cough 20 13/04/14 GUAIFENESIN-CODEINE 75249625226 No Longer Active Carlton Hu MD Active MEDROL 4 MG ORAL TABLET THERAPY PACK 6 tabs on day 1, 5 tabs on day 2, 4 tabs on day 3, 3 tabs on day 4, 2 tabs on day 5, 1 tab on day 6 2013 METHYLPREDNISOLONE 72817771418 No Longer Active Perez Mora MD Active AZITHROMYCIN 250 MG ORAL TABLET 2 po qd x 1 day, then 1 po q d x 4 days AZITHROMYCIN 38598655784 No Longer Active Perez Ambriz MD Active PROPRANOLOL HCL 60 MG ORAL TABLET 1 PO Q D PROPRANOLOL HCL 72401621134 No Longer Active Perez Mora MD Activ e CHERATUSSIN AC 100-10 MG/5ML ORAL SYRUP take one tsp po Q 6h ours prn cough GUAIFENESIN-CODEINE 41021875084 No Longer Active Zia Mora MD Active AUGMENTIN 875-125 MG ORAL TABLET 1 tab by mouth twice daily with food AMOXICILLIN-POT CLAVULANATE 84920675704 No Longer Act nael Perez Mora MD Active CHERATUSSIN AC 100-10 MG/5ML ORAL SYRUP 1 tsp by mouth every 4 hours as needed for cough GUAIFENESIN-CODEINE 84233451394 No Longe r Active Hugo Restrepo MD Active ACETAMINOPHEN-CODEINE #3 300-30 MG ORAL TABLET 1 PO Q 4-6 HRS AR N PAIN ACETAMINOPHEN-CODEINE 15668191897 No Longer Active Hugo Restrepo MD Active LEVAQUIN 500 MG ORAL TABLET take one po QD LEVO FLOXACIN 64349518714 No Longer Active Griffin HERNANDEZ Active PREDNISONE 20 MG ORAL TABLET Take 3 tabs daily for 3 d ays, 2 tabs daily for 3 days, 1 tab daily for 3 days, 1/2 tab daily for 3 days 11/07 PREDNISONE 83337978510 No Longer Active Carlton Hu MD Acti ve AVELOX 400 MG ORAL TABLET 1 tab by mouth daily MOXIFLOXACIN HCL 88698752853 No Longer Active Carlton Hu MD Active CHERATUSSIN AC 100-10 MG/5ML ORAL SYRUP 1 tsp by mouth every 4 hours as needed for cough GUAIFENESIN-CODEINE 56590891621 No Longe r Active Hugo Restrepo MD Active AVELOX 400 MG ORAL TABLET 1 tab by mouth daily MOXIFLOXACIN HCL 79528036604 No Longer Active Marcy De La Rosa MD PhD Active TERBINAFINE HCL 250 MG ORAL TABLET 1 qDay T ERBINAFINE HCL 44215463937 No Longer Active Marcy De La Rosa MD PhD Active CHERATUSSIN AC 100-10 MG/5ML ORAL SYRUP 1 tsp by mouth every 4 hours as needed for cough GUAIFENESIN-CODEINE 10742813529 No Longe r Active Marcy De La Rosa MD PhD Active AVELOX 400 MG ORAL TABLET 1 tab by mouth daily MOXIFLOXACIN HCL 03707760938 No Longer Active Marcy De La Rosa MD PhD Active HYDROCODONE-ACETAMINOPHEN 5-325 MG ORAL TABLET 1 po q 6hr PRN co ugh HYDROCODONE-ACETAMINOPHEN 29099895963 No Longer Active Marcy De La Rosa MD PhD Active PREDNISONE 20 MG ORAL TABLET 2 tabs daily for 3 days, 1 tab daily for 3 days, 1/2 tab daily for 2 days PREDNISONE 85833014821 No Longer Active Carlton Hu MD Active CEFDINIR 300 MG ORAL CAPSULE by mouth twice a day 2011 CEFDINIR 08133790433 No Longer Active Carlton Hu MD Acti ve HYDROCHLOROTHIAZIDE 25 MG ORAL TABLET 1 TAB PO DAILY HYDROCHLOROTHIAZIDE 55645207853 Active Carlton Hu MD A ctive ACETAMINOPHEN-CODEINE #3 300-30 MG ORAL TABLET 1 tablet po q 4-6 hrs prn pain ACETAMINOPHEN-CODEINE 14722621643 No Longer Active Ridge Bess DO Active ZITHROMAX 250 MG ORAL TABLET 2 po today, then 1 po q days 2-5 20 03/07/07 AZITHROMYCIN 35647970288 No Longer Active Carlton Hu MD Active CHERATUSSIN AC 100-10 MG/5ML ORAL SYRUP take 1 tsp po q4-6 h ours prn cough GUAIFENESIN-CODEINE 78711541898 No Longer Active Jayden Hu MD Active ACETAMINOPHEN-CODEINE #3 300-30 MG ORAL TABLET 1 PO Q 4-6 HR PRN PAIN ACETAMINOPHEN-CODEINE 32797284627 No Longer Active Da raimundo Hu MD Active LORTAB 7.5-500 MG/15ML ORAL ELIXIR 7.5 ml po q 4 hour prn cough HYDROCODONE-ACETAMINOPHEN 24922923646 No Longer Active Carlton Hu MD Active PREDNISONE 20 MG ORAL TABLET 1 po bid 3 days, then 1 po q day 3 days PREDNISONE 97513940675 No Longer Active Carlton Hu MD Active CEFDINIR 300 MG ORAL CAPSULE by mouth twice a day 2011 CEFDINIR 01949225063 No Longer Active Carlton Hu MD Acti ve CEFDINIR 300 MG ORAL CAPSULE by mouth twice a day 2010 CEFDINIR 30859807547 No Longer Active Carlton Hu MD Acti ve CEFDINIR 300 MG ORAL CAPSULE by mouth twice a day 2010 CEFDINIR 19838478274 No Longer Active Carlton Hu MD Acti ve TESSALON PERLES 100 MG ORAL CAPSULE 1 tablet by mouth 3 times daily as needed for cough BENZONATATE 05240618859 No Longer Active Carlton Hu MD Active CEFDINIR 300 MG ORAL CAPSULE by mouth twice a day 2010 CEFDINIR 95887848524 No Longer Active Carlton Hu MD Acti ve ZITHROMAX Z-REYNA 250 MG ORAL TABLET 2 today, then 1 daily for 4 d ays AZITHROMYCIN 53781601242 No Longer Active Hugo Restrepo MD Active TESSALON PERLES 100 MG ORAL CAPSULE 1 tablet by mouth 3 times daily as needed for cough ROLFSALBARRON PERLES 100 MG ORAL CAPSULE 61990 7 BENZONATATE Inactive PREDNISONE 20 MG ORAL TABLET 1 po bid 3 days, then 1 po q day 3 days PREDNISONE 20 MG ORAL TABLET 612695 PREDNISONE [place] ctive LORTAB 7.5-500 MG/15ML ORAL ELIXIR 7.5 [...] cough CHERATUSSIN AC 100-10 MG/5ML ORAL SYRUP 354443 GUAIFENESIN-CODEINE Inactive ACETAMINOPHEN-CODEINE #3 300-30 MG ORAL TABLET 1 tablet po q 4-6 hrs prn pain ACETAMINOPHEN-CODEINE #3 300-30 MG ORAL TABLET ACETAMINOPHEN-CODEINE Inactive HYDROCODONE-ACETAMINOPHEN 5-325 MG ORAL TABLET 1 po q 6hr PRN co ugh HYDROCODONE-ACETAMINOPHEN 5-325 MG ORAL TABLET 303970 HYDROCODONE-ACETAMINOPHEN Inactive AVELOX 400 MG ORAL TABLET 1 tab by mouth daily AVELOX 400 MG ORAL TABLET 479570 MOXIFLOXACIN HCL Inactive CHERATUSSIN AC 100-10 MG/5ML ORAL SYRUP 1 tsp by mouth every 4 hours as needed for cough CHERATUSSIN AC 100-10 MG/5ML ORAL SYRUP 9 09955 GUAIFENESIN-CODEINE Inactive TERBINAFINE HCL 250 MG ORAL TABLET 1 qDay 07/08 TERBINAFINE HCL 250 MG ORAL TABLET 240252 TERBINAFINE HCL Inactive CHERATUSSIN AC 100-10 MG/5ML ORAL SYRUP 1 tsp by mouth every 4 hours as needed for cough CHERATUSSIN AC 100-10 MG/5ML ORAL SYRUP 9 06284 GUAIFENESIN-CODEINE Inactive ACETAMINOPHEN-CODEINE #3 300-30 MG ORAL TABLET 1 PO Q 4-6 HRS AR N PAIN ACETAMINOPHEN-CODEINE #3 300-30 MG ORAL TABLET ACETAMINOPHEN-CODEINE Inactive CHERATUSSIN AC 100-10 MG/5ML ORAL SYRUP 1 tsp by mouth every 4 hours as needed for cough CHERATUSSIN AC 100-10 MG/5ML ORAL SYRUP 9 03433 GUAIFENESIN-CODEINE Inactive AUGMENTIN 875-125 MG ORAL TABLET 1 tab by mouth twice daily with food AUGMENTIN 875-125 MG ORAL TABLET AMOXICIL MADELINE-POT CLAVULANATE Inactive CHERATUSSIN AC 100-10 MG/5ML ORAL SYRUP take one tsp po Q 6h ours prn cough CHERATUSSIN AC 100-10 MG/5ML ORAL SYRUP 795024 GUAIFENESIN-CODEINE Inactive PROPRANOLOL HCL 60 MG ORAL TABLET 1 PO Q D PROPRANOLOL HCL 60 MG ORAL TABLET 348466 PROPRANOLOL HCL Inactive TOPAMAX 50 MG ORAL TABLET take 1 tab po BID for migraines. 07/02 TOPAMAX 50 MG ORAL TABLET 135994 TOPIRAMATE Inacti ve TOPAMAX 25 MG ORAL TABLET 1 qHS x 1 week, then 1 BID x 1 week, then 1 qAM and 2 qHS x 1 week, then 2 BID (migraine prevention) TOPAMAX 25 MG ORAL TABLET 833246 TOPIRAMATE Inactive LYRICA 75 MG ORAL CAPSULE TAKE 1 CAPSULE BY MOUTH TWICE DAILY LYRICA 75 MG ORAL CAPSULE PREGABALIN Inactive SYMBICORT 160-4.5 MCG/ACT INHALATION AEROSOL 2 puffs bid wit h rinse after SYMBICORT 160-4.5 MCG/ACT INHALATION AEROSOL BUDESONIDE- FORMOTEROL FUMARATE Inactive PROMETHAZINE-CODEINE 6.25-10 MG/5ML ORAL SYRUP 1 tsp b y mouth every 8 hours prn cough PROMETHAZINE-CODEINE 6.25-10 MG/ 5ML ORAL SYRUP 113976 PROMETHAZINE-CODEINE Inactive CYMBALTA 30 MG ORAL CAPSULE DELAYED RELEASE PARTICLES 1 cap by mouth daily CYMBALTA 30 MG ORAL CAPSULE DELAYED RELE ASE PARTICLES 115040 DULOXETINE HCL Inactive PREMARIN 0.625 MG ORAL TABLET TAKE 1 TAB BY MOUTH DAILY PREMARIN 0.625 MG ORAL TABLET ESTROGENS CONJUGATED Inactive CHERATUSSIN AC 100-10 MG/5ML ORAL SYRUP 1 tsp by mouth every 4 hours as needed for cough CHERATUSSIN AC 100-10 MG/5ML ORAL SYRUP 9 68563 GUAIFENESIN-CODEINE Inactive PROMETHAZINE-CODEINE 6.25-10 MG/5ML ORAL SYRUP 1 tsp b y mouth every 6 hours if needed for cough PROMETHAZINE-CODEINE 6.25-10 MG/5ML ORAL SYRUP 553696 PROMETHAZINE-CODEINE Inactive CHERATUSSIN AC 100-10 MG/5ML ORAL SYRUP 1 tsp by mouth every 4 hours as needed for cough CHERATUSSIN AC 100-10 MG/5ML ORAL SYRUP 9 11205 GUAIFENESIN-CODEINE Inactive FLUTICASONE PROPIONATE 50 MCG/ACT NASAL SUSPENSION 1 t o 2 sprays each nostril daily FLUTICASONE PROPIONATE 50 MCG/AC T NASAL SUSPENSION 9871115 FLUTICASONE PROPIONATE Inactive PREDNISONE 20 MG ORAL TABLET 3 tab PO qd x 2d, 2 tab P O qd x 2d, 1 tab PO qd x 2d, 1/2 tab PO qd x 2d PREDNISONE 20 MG ORAL TAB LET 842212 PREDNISONE Inactive LEVOFLOXACIN 500 MG ORAL TABLET 1 tab PO daily x 10 days LEVOFLOXACIN 500 MG ORAL TABLET 396648 LEVOFLOXACIN Inactive CYCLOBENZAPRINE HCL 10 MG ORAL TABLET 1 tablet by mouth BID prn had pain CYCLOBENZAPRINE HCL 10 MG ORAL TABLET 563096 CYCLOBENZAPRINE HCL Inactive ZOCOR 40 MG ORAL [...] FLUTICASONE PROPIO EFE 50 MCG/ACT NASAL SUSPENSION 6480530 FLUTICASONE PROPIONATE Inactive TUSSIONEX PENNKINETIC ER 10-8 [...] three days PREDNISONE 20 MG ORAL TABLET 462353 PREDNIS ONE Inactive PROAIR HFA 108 (90 BASE) MCG/ACT INHALATION AEROSOL SO LUTION 2 puffs four times a day as needed PROAIR HFA 108 (90 B ASE) MCG/ACT INHALATION AEROSOL SOLUTION ALBUTEROL SULFATE Inactive PREDNISONE 20 MG ORAL TABLET two tabs by mouth today, then one tab by mouth days two and three and four PREDNISONE 20 MG ORAL TAB LET 272780 PREDNISONE Inactive TUSSIONEX PENNKINETIC ER 10-8 MG/5ML [...] bid 04/20 TOPAMAX 100 MG ORAL TABLET 625052 TOPIRAMATE Inactive CYMBALTA 30 MG ORAL CAPSULE DELAYED RELEASE PARTICLES 1 cap by mouth daily for depression CYMBALTA 30 MG ORAL CAPSULE DELAYED RELEASE PARTICLES 703755 DULOXETINE HCL Inactive ZITHROMAX Z-REYNA 250 MG ORAL TABLET 2 today, then 1 daily for 4 d ays ZITHROMAX Z-REYNA 250 MG ORAL TABLET 475207 AZITHROMYCIN Inactive CEFDINIR 300 MG ORAL CAPSULE by mouth twice a day 2010 CEFDINIR 300 MG ORAL CAPSULE 598410 CEFDINIR Inactive CEFDINIR 300 MG ORAL CAPSULE by mouth twice a day 2010 CEFDINIR 300 MG ORAL CAPSULE 936964 CEFDINIR Inactive CEFDINIR 300 MG ORAL CAPSULE by mouth twice a day 2010 CEFDINIR 300 MG ORAL CAPSULE 879411 CEFDINIR Inactive CEFDINIR 300 MG ORAL CAPSULE by mouth twice a day 2011 CEFDINIR 300 MG ORAL CAPSULE 787950 CEFDINIR Inactive ZITHROMAX 250 MG ORAL TABLET 2 po today, then 1 po q days 2-5 20 03/07/07 ZITHROMAX 250 MG ORAL TABLET 838904 AZITHROMYCIN [place] ctive CEFDINIR 300 MG ORAL CAPSULE by mouth twice a day 2011 CEFDINIR 300 MG ORAL CAPSULE 819391 CEFDINIR Inactive PREDNISONE 20 MG ORAL TABLET 2 tabs daily for 3 days, 1 tab daily for 3 days, 1/2 tab daily for 2 days PREDNISONE 20 MG ORAL T ABLET 179894 PREDNISONE Inactive AVELOX 400 MG ORAL TABLET 1 tab by mouth daily AVELOX 400 MG ORAL TABLET 643417 MOXIFLOXACIN HCL Inactive AVELOX 400 MG ORAL TABLET 1 tab by mouth daily AVELOX 400 MG ORAL TABLET 502524 MOXIFLOXACIN HCL Inactive PREDNISONE 20 MG ORAL TABLET Take 3 tabs daily for 3 d ays, 2 tabs daily for 3 days, 1 tab daily for 3 days, 1/2 tab daily for 3 days 11/07 PREDNISONE 20 MG ORAL TABLET 298822 PREDNISONE Inactive LEVAQUIN 500 MG ORAL TABLET take one po QD LEVAQUIN 500 MG ORAL TABLET 733944 LEVOFLOXACIN Inactive AZITHROMYCIN 250 MG ORAL TABLET 2 po qd x 1 day, then 1 po q d x 4 days AZITHROMYCIN 250 MG ORAL TABLET 076587 AZITHROMY GIOVANNI Inactive MEDROL 4 MG ORAL TABLET THERAPY PACK 6 tabs on day 1, 5 tabs on day 2, 4 tabs on day 3, 3 tabs on day 4, 2 tabs on day 5, 1 tab on day 6 2013 MEDROL 4 MG ORAL TABLET THERAPY PACK 424116 METHYLPREDNISOLONE [place] ctive CHERATUSSIN AC 100-10 MG/5ML ORAL SYRUP 5ml po q6hr PRN Cough 20 13/04/14 CHERATUSSIN AC 100-10 MG/5ML ORAL SYRUP 786883 GUAIFENE SIN-CODEINE Inactive TRIAMCINOLONE ACETONIDE 0.1 % EXTERNAL CREAM apply three roger es daily prn rash TRIAMCINOLONE ACETONIDE 0.1 % EXTERNAL CREAM 101 4314 TRIAMCINOLONE ACETONIDE Inactive AZITHROMYCIN 250 MG ORAL TABLET 2 po qd x 1 day, then 1 po q d x 4 days AZITHROMYCIN 250 MG ORAL TABLET 431443 AZITHROMY GIOVANNI Inactive MEDROL 4 MG ORAL TABLET THERAPY PACK 6 pills x 1 day, then 5 pills x 1 day then 4 pills x 1 day, then 3 pills x 1 day, then 2 pills x 1 day, then 1 pill x 1 day, then stop MEDROL 4 MG ORAL TABLET THERAPY PACK 640226 METHYLPREDNISOLONE Inactive AMOXICILLIN 500 MG ORAL CAPSULE 1 tab by mouth 3 times daily x 10 days AMOXICILLIN 500 MG ORAL CAPSULE 029936 AMOXICILL IN Inactive AMOXICILLIN 500 MG ORAL CAPSULE 1 tab by mouth 3 times daily x 10 days AMOXICILLIN 500 MG ORAL CAPSULE [id number] AMOXICILL IN Inactive ZITHROMAX 250 MG ORAL TABLET 2 po today, then 1 po q days 2-5 20 12/08/14 ZITHROMAX 250 MG ORAL TABLET 140312 AZITHROMYCIN Greer ctive AUGMENTIN 875-125 MG ORAL TABLET 1 po BID x 10 days 20 13/01/20 AUGMENTIN 875-125 MG ORAL TABLET AMOXICILLIN-POT CLAVULANATE Inactive ZITHROMAX Z-REYNA 250 MG ORAL TABLET 2 today, then 1 daily for 4 d ays ZITHROMAX Z-REYNA 250 MG ORAL TABLET 320494 AZITHROMYCIN Inactive ZITHROMAX 250 MG ORAL TABLET 2 po today, then 1 po q days 2-5 20 14/03/21 ZITHROMAX 250 MG ORAL TABLET 187501 AZITHROMYCIN [place] [facility] ZITHROMAX Z-REYNA 250 MG ORAL TABLET 2 today, then 1 daily for 4 d ays ZITHROMAX Z-REYNA 250 MG ORAL TABLET 441435 AZITHROMYCIN Inactive CEFDINIR 300 MG ORAL CAPSULE 1 po BID x 10 days 06/21 CEFDINIR 300 MG ORAL CAPSULE 169954 CEFDINIR Inactive ZITHROMAX 250 MG ORAL TABLET 2 po today, then 1 po q days 2-5 20 13/08/10 ZITHROMAX 250 MG ORAL TABLET 434076 AZITHROMYCIN [place] [facility] LEVAQUIN 500 MG ORAL TABLET 1 tablet by mouth daily 20 13/09/24 LEVAQUIN 500 MG ORAL TABLET 19971102 LEVOFLOXACIN Inactive SINGULAIR 10 MG ORAL TABLET 1 po qday for allergies 20 14/01/12 SINGULAIR 10 MG ORAL TABLET 20010504 MONTELUKAST SODIUM Inactive AMOXICILLIN 500 MG ORAL CAPSULE 2 po BID x 10 days 201 09/29/08 AMOXICILLIN 500 MG ORAL CAPSULE 510856 AMOXICILLIN Inactive PREDNISONE 20 MG ORAL TABLET 2 tabs daily for 3 days, 1 tab daily for 3 days, 1/2 tab daily for 2 days PREDNISONE 20 MG ORAL T ABLET 127865 PREDNISONE Inactive ZITHROMAX Z-REYNA 250 MG ORAL TABLET 2 today, then 1 daily for 4 d ays ZITHROMAX Z-REYNA 250 MG ORAL TABLET 018239 AZITHROMYCIN Inactive PREDNISONE 20 MG ORAL TABLET 2 tabs daily for 3 days, 1 tab daily for 3 days, 1/2 tab daily for 2 days PREDNISONE 20 MG ORAL T ABLET 665523 PREDNISONE Inactive ZITHROMAX 250 MG ORAL TABLET 2 po today, then 1 po q days 2-5 20 14/09/04 ZITHROMAX 250 MG ORAL TABLET 291853 AZITHROMYCIN [place] [facility] AMOXICILLIN 500 MG ORAL CAPSULE 1 cap by mouth three times a day AMOXICILLIN 500 MG ORAL CAPSULE 642071 AMOXICILLIN Inactive TERBINAFINE HCL 250 MG ORAL TABLET 1 qDay for nail fungus 7 TERBINAFINE HCL 250 MG ORAL TABLET 048285 TERBINAFINE HCL Inact nael AUGMENTIN 875-125 MG ORAL TABLET 1 po BID x 10 days 16/03/22 AUGMENTIN 875-125 MG ORAL TABLET AMOXICILLIN-POT CLAVULANATE Inactive PREDNISONE 20 MG ORAL TABLET 2 po qd x 5 days PREDNISONE 20 MG ORAL TABLET 467896 PREDNISONE Inactive AZITHROMYCIN 250 MG ORAL TABLET 2 po qd x 1 day, then 1 po q d x 4 days AZITHROMYCIN 250 MG ORAL TABLET 758808 AZITHROMY GIOVANNI Inactive PREDNISONE 50 MG ORAL TABLET Take 50 mg dialy for 6 day s 7 PREDNISONE 50 MG ORAL TABLET 372779 PREDNISONE Inactive AUGMENTIN 875-125 MG ORAL TABLET 1 po BID x 10 days 20 18/04/16 AUGMENTIN 875-125 MG ORAL TABLET AMOXICILLIN-POT CLAVULANATE Inactive DOXYCYCLINE HYCLATE 100 MG ORAL CAPSULE 1 cap by mouth twice latasha ly DOXYCYCLINE HYCLATE 100 MG ORAL CAPSULE 2662218 DOXYCYCL INE HYCLATE Inactive PREDNISONE 20 MG ORAL TABLET Take 2 tabs day 1 and 2 and 1 t ab days 3 and 4 PREDNISONE 20 MG ORAL TABLET 438970 PREDNISONE Inactive Vital Signs Date Name Value [...] - Chem istry sodium, serum 139 mmol/L 996-760 9885/10/12 potassium, serum 3.8 mmol/L 3.5-5.2 chloride, serum [...] negative Encounters Code Encounter Date Provider Facility CPT-99078 Level 3 Est. Patient 16:53:54 CDT May haas MD [facility]-58231 [id number] Vst-Est Level IV 08:41:[address] Carlton Hu MD [facility]-43915 Level 3 Est. Patient 09:46:49 INSTRUCTIONAL AIDE David lion [facility]-84480 [id number] Vst-Est Level III 11:12:16 CDT Yanet Bess DO [facility]-72616 Level 3 Est. Patient 11:34:49 INSTRUCTIONAL AIDE Perez Mora MD [facility]-92374 Level 4 Est. Patient 09:51:32 INSTRUCTIONAL AIDE Carlton rich MD [facility]-58163 Level 3 Est. Patient 10:26:00 INSTRUCTIONAL AIDE Elise stephenson [facility]-30927 Level 3 Est. Patient 13:35:41 INSTRUCTIONAL AIDE Carlton rich MD [facility]-46981 Level 3 Est. Patient 10:03:52 INSTRUCTIONAL AIDE Carlton rich MD [facility]-22482 Level 3 Est. Patient 12:17:50 CDT Hugo Restrepo MD [facility]-57061 Level 3 Est. Patient 13:42:38 CDT Elise Are [facility] CPT-50366 Level 3 Est. Patient 13:23:51 CDT Diya Mariana cobian [facility] CPT-11335 Level 3 Est. Patient 14:22:19 INSTRUCTIONAL AIDE Venuriley Mariana cobian [facility] CPT-66679 Level 3 Est. Patient 10:11:46 CDT Carlton rich MD [facility] CPT-80148 Level 3 Est. Patient 17:29:43 CDT Elise Are [facility] CPT-41698 Level 3 Est. Patient 11:58:06 CDT Elise Are [facility] CPT-08849 Level 4 Est. Patient 14:36:51 CDT Carlton rich MD [facility] CPT-39591 Level 3 Est. Patient 18:16:00 INSTRUCTIONAL AIDE Blaine HERNANDEZ [facility] CPT-16412 Level 3 Est. Patient 09:45:49 INSTRUCTIONAL AIDE Carlton rich MD [facility] CPT-39844 Level 3 Est. Patient 13:19:20 CDT Carlton rich MD [facility] CPT-04974 Level 3 Est. Patient 13:06:43 CDT Ridge tam DO [facility] CPT-79102 Level 3 Est. Patient 10:03:07 CDT Perez Mora MD [facility] CPT-06393 Level 3 Est. Patient 19:50:35 INSTRUCTIONAL AIDE Carlton rich MD [facility] CPT-48569 Level 4 Est. Patient 18:05:01 INSTRUCTIONAL AIDE Carlton rich MD [facility] CPT-45680 Level 3 Est. Patient 10:45:55 INSTRUCTIONAL AIDE Hugo Restrepo MD [facility] CPT-92640 Level 3 Est. Patient 14:12:49 CDT Griffin HERNANDEZ [facility] CPT-63315 Level 3 Est. Patient 17:37:24 CDT Carlton rich MD [facility] CPT-76715 Level 3 Est. Patient 16:51:54 CDT Carlton rich MD [facility] CPT-77627 Level 3 Est. Patient 12:18:11 CDT Hugo Restrepo MD [facility] CPT-89564 Level 3 Est. Patient 11:30:25 CDT Marcy crisostomo MD PhD [facility] CPT-71970 Level 3 Est. Patient 12:00:47 INSTRUCTIONAL AIDE Carlton rich MD [facility] CPT-38984 Level 3 Est. Patient 16:31:06 INSTRUCTIONAL AIDE Carlton rich MD [facility] CPT-74851 Level 3 Est. Patient 16:23:24 INSTRUCTIONAL AIDE Ridge tam DO [facility] CPT-79391 Level 3 Est. Patient 12:34:12 CDT Carlton rich MD [facility] CPT-99358 Level 2 Est. Patient 15:43:33 CDT Robi armstrong MD [facility] CPT-45726 Level 4 Est. Patient 14:04:44 CDT Carlton rich MD [facility] CPT-40836 Level 3 Est. Patient 05:47:59 CDT Ridge tam [facility] CPT-90637 Level 3 Est. Patient 13:12:53 INSTRUCTIONAL AIDE Carlton rich MD [facility] CPT-49713 Level 3 Est. Patient 14:26:53 CDT Hugo [...] CPT-J1100 Decadron 6mg (Dexamethasone) 14:32:13 CDT 2 CPT-69346 Hip bilat min 2V w AP pelvis 13:16:20 CDT 2 CPT-72460 Pelvis only 13:07:33 CDT CPT-86735 Spec Collection and Handling Fee 11:25:12 C DT CPT-04782 Fluzone Quadrivalent Intramuscular Suspe nsion 0.5 ML 14:31:55 CDT CPT-28707 Abx/Therapy Injection 13:28:47 INSTRUCTIONAL AIDE CPT-J2930 Solu Medrol 125 mg (Methyl Prednisolone Sodium Succinate) 12:00:47 INSTRUCTIONAL AIDE CPT-24689 Venipuncture Draw Fee 11:33:31 CDT CPT-24848 EKG Trac and Interp 11:21:09 CDT CPT-58029 Chest 2V Frontal and Lat 11:21:09 CDT 12/15 CPT-02386 Venipuncture Draw Fee 08:02:34 CDT CPT-61475 Chest 2V Frontal and Lat 05:47:59 CDT 06/05
--- OUTSIDE RECORDS SUMMARY | 2019-10-08 09:05 | XMS REPORT | Clinical Summary ---
[...] 1 capsule at night PENTOSAN POLYSULFATE SODIUM [id number] Active Cinthia H art SCALE ADJUSTER Active CYMBALTA 30 MG ORAL CAPSULE DELAYED RELEASE PARTICLES 1 cap by mouth daily for depression DULOXETINE HCL 53380475663 No Longer Active Carlton Hu MD Active CYMBALTA 60 MG ORAL CAPSULE DELAYED RELEASE PARTICLES 1 cap by mouth daily for mood and pain DULOXETINE HCL 26955852284 Active Carlton Hu MD Active TUSSIONEX PENNKINETIC ER 10-8 MG/5ML ORAL SUSPENSION E XTENDED RELEASE 5ml po q12hr PRN Cough HYDROCOD POLST-CHLORPHEN POLST 65989481850 Active David Marianne FISH CAKE MAKER Active PREDNISONE 20 MG ORAL TABLET Take 2 tabs day 1 and 2 and 1 t ab days 3 and 4 PREDNISONE 87074237655 No Longer Active David Marianne FISH CAKE MAKER Active DOXYCYCLINE HYCLATE 100 MG ORAL CAPSULE 1 cap by mouth twice latasha ly DOXYCYCLINE HYCLATE 35961709225 No Longer Active David Marianne FISH CAKE MAKER Active TOPAMAX 100 MG ORAL TABLET Take 1 tablet po bid TOPIRAMATE 59684225526 No Longer Active David Marianne FISH CAKE MAKER Active TUSSIONEX PENNKINETIC ER 10-8 MG/5ML ORAL SUSPENSION E XTENDED RELEASE 5ml po q12hr PRN Cough HYDROCOD POLST-CHLORPHEN POLST 5 4459074143 No Longer Active David Marianne FISH CAKE MAKER Active AUGMENTIN 875-125 MG ORAL TABLET 1 po BID x 10 days 18/04/16 AMOXICILLIN-POT CLAVULANATE 32227593389 No Longer Active David Marianne FISH CAKE MAKER Active PREDNISONE 50 MG ORAL TABLET Take 50 mg dialy for 6 day s 7 PREDNISONE 22291035229 No Longer Active David Marianne FISH CAKE MAKER Active TUSSIONEX PENNKINETIC ER 10-8 MG/5ML ORAL SUSPENSION E XTENDED RELEASE 5ml po q12hr PRN Cough HYDROCOD POLST-CHLORPHEN POLST 5 6819893568 No Longer Active Cherelle Torres RN Active PREDNISONE 20 MG ORAL TABLET two tabs by mouth today, then one tab by mouth days two and three and four PREDNISONE 28549405705 No Lo nger Active Cherelle Torres RN Active AZITHROMYCIN 250 MG ORAL TABLET 2 po qd x 1 day, then 1 po q d x 4 days AZITHROMYCIN 78827583782 No Longer Active Ridge Bess DO Active PREDNISONE 20 MG ORAL TABLET 2 po qd x 5 days P REDNISONE 95924665191 No Longer Active Peerz Mora MD Active PROAIR HFA 108 (90 BASE) MCG/ACT INHALATION AEROSOL SO LUTION 2 puffs four times a day as needed ALBUTEROL SULFATE 93344732659 No Long er Active Becky Cuellar RMA Active ASPIRIN 81 MG ORAL TABLET 1 po qd ASPIRIN 98405795695 Active Carlton Hu MD Active PREDNISONE 20 MG ORAL TABLET 1 tab twice daily for 3 d ay, then one daily for three days PREDNISONE 38495955419 No Longer Active Carlton Hu MD Active AUGMENTIN 875-125 MG ORAL TABLET 1 po BID x 10 days 16/03/22 AMOXICILLIN-POT CLAVULANATE 80509919863 No Longer Active Elise Garcia APRN Active TERBINAFINE HCL 250 MG ORAL TABLET 1 qDay for nail fungus 7 TERBINAFINE HCL 08449292547 No Longer Active Carlton Hu MD A ctive AMOXICILLIN 500 MG ORAL CAPSULE 1 cap by mouth three times a day AMOXICILLIN 43910104844 No Longer Active Carlton Hu MD Active ELMIRON 100 MG ORAL CAPSULE 2 tablets in the am and 1 tablet at hs PENTOSAN POLYSULFATE SODIUM 03353497941 No Longer Active Robert Hu MD Active MUCINEX D 60-600 MG ORAL TABLET EXTENDED RELEASE 12 HOUR 1 t ab po q am PSEUDOEPHEDRINE-GUAIFENESIN 11105117556 No Longer Act nael Carlton Hu MD Active MUCINEX DM MAXIMUM STRENGTH 60-1200 MG ORAL TABLET EXT ENDED RELEASE 12 HOUR 1 tab po q am DEXTROMETHORPHAN-GUAIFENESIN 54109560079 No Longer Active Carlton Hu MD Active TUSSIONEX PENNKINETIC ER 10-8 MG/5ML ORAL SUSPENSION E XTENDED RELEASE 5ml po q12hr PRN Cough HYDROCOD POLST-CHLORPHEN POLST 5 2239218867 No Longer Active Carlton Hu MD Active POTASSIUM CHLORIDE ER 20 MEQ ORAL TABLET EXTENDED RELE ASE Take 1 by mouth 4 times daily for 7 days POTASSIUM CHLORIDE 73963432526 No Longer Active Carlton Hu MD Active ZITHROMAX 250 MG ORAL TABLET 2 po today, then 1 po q days 2-5 20 14/09/04 AZITHROMYCIN 85241668978 No Longer Active Elise Garcia APRN Active TUSSIONEX PENNKINETIC ER 10-8 MG/5ML ORAL SUSPENSION E XTENDED RELEASE 5 ml twice a day as needed for cough HYDROCOD POLST-CHLORPH EN POLST 74885167379 No Longer Active Elise Garcia APRN Active MONTELUKAST SODIUM 10 MG ORAL TABLET 1 po daily for Allergy MONTELUKAST SODIUM 76052231200 Active Carlton Hu MD Ac tive TUSSIONEX PENNKINETIC ER 10-8 MG/5ML ORAL SUSPENSION E XTENDED RELEASE 5ml po q12hr PRN Cough HYDROCOD POLST-CHLORPHEN POLST 5 3435854234 No Longer Active Hugo Restrepo MD Active GABAPENTIN 100 MG ORAL CAPSULE 1 po BID for fibromyalgia GABAPENTIN 38248168226 Active ALFREDO Holly Active LYRICA 100 MG ORAL CAPSULE Take 1 tab po BID for fibromyalgia 20 11/08/21 PREGABALIN 46068799874 No Longer Active Elise Garcia APRN A ctive PREDNISONE 20 MG ORAL TABLET 2 tabs daily for 3 days, 1 tab daily for 3 days, 1/2 tab daily for 2 days PREDNISONE 82629285572 No Longer Active Diya De Guzman APRN Active TUSSIONEX PENNKINETIC ER 10-8 MG/5ML ORAL SUSPENSION E XTENDED RELEASE 5 mL PO q 12 hrs PRN cough HYDROCOD POLST-CHLORPHEN POLST 915063 54480 No Longer Active Jiriley De Guzman APRN Active FLUTICASONE PROPIONATE 50 MCG/ACT NASAL SUSPENSION 2 s prays each nostril daily until bottle is empty FLUTICASONE PROPIONATE 815599859 99 No Longer Active Diya De Guzman APRN Active ASMANEX 60 METERED DOSES 220 MCG/INH INHALATION AEROSO L POWDER BREATH ACTIVATED 1 puff bid with rinse after MOMETASONE FUROATE 7239868 4102 No Longer Active Diya De Guzman APRN Active ZITHROMAX Z-REYNA 250 MG ORAL TABLET 2 today, then 1 daily for 4 d ays AZITHROMYCIN 59534290211 No Longer Active Elise Garcia APRN Active TUSSIONEX PENNKINETIC ER 10-8 MG/5ML ORAL SUSPENSION E XTENDED RELEASE 5ml po q12hr PRN Cough HYDROCOD POLST-CHLORPHEN POLST 5 3272764948 No Longer Active Elise Garcia APRN Active PREDNISONE 20 MG ORAL TABLET 2 tabs daily for 3 days, 1 tab daily for 3 days, 1/2 tab daily for 2 days PREDNISONE 53657829104 No Longer Active Diya De Guzman APRN Active AMOXICILLIN 500 MG ORAL CAPSULE 2 po BID x 10 days 201 09/29/08 AMOXICILLIN 69998725266 No Longer Active Diya De Guzman APRN Act nael SINGULAIR 10 MG ORAL TABLET 1 po qday for allergies 20 14/01/12 MONTELUKAST SODIUM 03246923917 No Longer Active Carlton Hu MD Active LEVAQUIN 500 MG ORAL TABLET 1 tablet by mouth daily 20 13/09/24 LEVOFLOXACIN 21652517391 No Longer Active Carlton Hu MD Acti ve FLUTICASONE PROPIONATE 50 MCG/ACT NASAL SUSPENSION 2 s prays each nostril daily for 2 weeks, then 1 spray each nostril daily. FLUTICASONE PROPIONATE 01524792650 Active Carlton Hu MD Active ZITHROMAX 250 MG ORAL TABLET 2 po today, then 1 po q days 2-5 20 13/08/10 AZITHROMYCIN 84120477426 No Longer Active Elise Garcia APRN Active XANAX 0.5 MG ORAL TABLET one tablet by mouth daily prn anxiety 2015 ALPRAZOLAM 54143606489 Active ALFREDO Holly Active CEFDINIR 300 MG ORAL CAPSULE 1 po BID x 10 days CEFDINIR 14056828005 No Longer Active Carlton Hu MD Active ZOCOR 40 MG ORAL TABLET 1 tab by mouth daily SI MVASTATIN 59412493966 No Longer Active Carlton Hu MD Active CYCLOBENZAPRINE HCL 10 MG ORAL TABLET 1 tablet by mouth BID prn had pain CYCLOBENZAPRINE HCL 59868814397 No Longer Active Jayden Hu MD Active LEVOFLOXACIN 500 MG ORAL TABLET 1 tab PO daily x 10 days LEVOFLOXACIN 67346401849 No Longer Active Carlton Hu MD Acti ve PREDNISONE 20 MG ORAL TABLET 3 tab PO qd x 2d, 2 tab P O qd x 2d, 1 tab PO qd x 2d, 1/2 tab PO qd x 2d PREDNISONE 37432967270 No Lo nger Active Carlton Hu MD Active FLUTICASONE PROPIONATE 50 MCG/ACT NASAL SUSPENSION 1 t o 2 sprays each nostril daily FLUTICASONE PROPIONATE 19960177179 No Longer Ac tive Blaine HERNANDEZ Active CHERATUSSIN AC 100-10 MG/5ML ORAL SYRUP 1 tsp by mouth every 4 hours as needed for cough GUAIFENESIN-CODEINE 93248421900 No Longe r Active Blaine HERNANDEZ Active PROMETHAZINE-CODEINE 6.25-10 MG/5ML ORAL SYRUP 1 tsp b y mouth every 6 hours if needed for cough PROMETHAZINE-CODEINE 32637040246 No Longer Active Blaine HERNANDEZ Active CHERATUSSIN AC 100-10 MG/5ML ORAL SYRUP 1 tsp by mouth every 4 hours as needed for cough GUAIFENESIN-CODEINE 22010139723 No Longe r Active Blaine HERNANDEZ Active ZITHROMAX Z-REYNA 250 MG ORAL TABLET 2 today, then 1 daily for 4 d ays AZITHROMYCIN 75327047824 No Longer Active Columba Raida Act nael ZITHROMAX 250 MG ORAL TABLET 2 po today, then 1 po q days 2-5 20 14/03/21 AZITHROMYCIN 67945631337 No Longer Active Carlton Hu MD Active ZITHROMAX Z-REYNA 250 MG ORAL TABLET 2 today, then 1 daily for 4 d ays AZITHROMYCIN 01887311294 No Longer Active Columba Raida Act nael AUGMENTIN 875-125 MG ORAL TABLET 1 po BID x 10 days 13/01/20 AMOXICILLIN-POT CLAVULANATE 26250066959 No Longer Active Diya De Guzman APRN Active ZITHROMAX 250 MG ORAL TABLET 2 po today, then 1 po q days 2-5 20 12/08/14 AZITHROMYCIN 15402551389 No Longer Active Carlton Hu MD Active TRAMADOL HCL 50 MG ORAL TABLET 1 po tid with ES Tylenol TRAMADOL HCL 66948933136 Active ALFREDO Holly Active PREMARIN 0.625 MG ORAL TABLET TAKE 1 TAB BY MOUTH DAILY ESTROGENS CONJUGATED 95862610961 No Longer Active Ridge Bess DO A ctive CYMBALTA 30 MG ORAL CAPSULE DELAYED RELEASE PARTICLES 1 cap by mouth daily DULOXETINE HCL 94577309432 No Longer Active Ridge tam DO Active AMOXICILLIN 500 MG ORAL CAPSULE 1 tab by mouth 3 times daily x 10 days AMOXICILLIN 50633246091 No Longer Active Carlton bustamante MD Active AMOXICILLIN 500 MG ORAL CAPSULE 1 tab by mouth 3 times daily x 10 days AMOXICILLIN 11709613162 No Longer Active Carlton bustamante MD Active PROMETHAZINE-CODEINE 6.25-10 MG/5ML ORAL SYRUP 1 tsp b y mouth every 8 hours prn cough PROMETHAZINE-CODEINE 60484654611 No Longer Acti ve Carlton Hu MD Active MEDROL 4 MG ORAL TABLET THERAPY PACK 6 pills x 1 day, then 5 pills x 1 day then 4 pills x 1 day, then 3 pills x 1 day, then 2 pills x 1 day, then 1 pill x 1 day, then stop METHYLPREDNISOLONE 32576595089 No Long er Active Perez Mora MD Active AZITHROMYCIN 250 MG ORAL TABLET 2 po qd x 1 day, then 1 po q d x 4 days AZITHROMYCIN 62413452286 No Longer Active Perez Ambriz MD Active SYMBICORT 160-4.5 MCG/ACT INHALATION AEROSOL 2 puffs bid wit h rinse after BUDESONIDE-FORMOTEROL FUMARATE 53531436237 N o Longer Active Perez Mora MD Active LYRICA 75 MG ORAL CAPSULE TAKE 1 CAPSULE BY MOUTH TWICE DAILY PREGABALIN 36480542567 No Longer Active Carlton Hu MD Acti ve TOPAMAX 25 MG ORAL TABLET 1 qHS x 1 week, then 1 BID x 1 week, then 1 qAM and 2 qHS x 1 week, then 2 BID (migraine prevention) T OPIRAMATE 14845517935 No Longer Active Jerica FUENTES Active TOPAMAX 50 MG ORAL TABLET take 1 tab po BID for migraines. 07/02 TOPIRAMATE 34509157716 No Longer Active Jerica FUENTES Active TRIAMCINOLONE ACETONIDE 0.1 % EXTERNAL CREAM apply three roger es daily prn rash TRIAMCINOLONE ACETONIDE 06158827107 No Longer Active Carlton Hu MD Active PAXIL 40 MG ORAL TABLET take 1 tab po qday for depression 0 PAROXETINE HCL 09553464632 Active Carlton Hu MD Active CHERATUSSIN AC 100-10 MG/5ML ORAL SYRUP 5ml po q6hr PRN Cough 20 13/04/14 GUAIFENESIN-CODEINE 80588153745 No Longer Active Carlton Hu MD Active MEDROL 4 MG ORAL TABLET THERAPY PACK 6 tabs on day 1, 5 tabs on day 2, 4 tabs on day 3, 3 tabs on day 4, 2 tabs on day 5, 1 tab on day 6 2013 METHYLPREDNISOLONE 05086782204 No Longer Active Perez Mora MD Active AZITHROMYCIN 250 MG ORAL TABLET 2 po qd x 1 day, then 1 po q d x 4 days AZITHROMYCIN 34106746830 No Longer Active Perez Ambriz MD Active PROPRANOLOL HCL 60 MG ORAL TABLET 1 PO Q D PROPRANOLOL HCL 51291871419 No Longer Active Perez Mora MD Activ e CHERATUSSIN AC 100-10 MG/5ML ORAL SYRUP take one tsp po Q 6h ours prn cough GUAIFENESIN-CODEINE 91979920477 No Longer Active Zia Mora MD Active AUGMENTIN 875-125 MG ORAL TABLET 1 tab by mouth twice daily with food AMOXICILLIN-POT CLAVULANATE 96479829163 No Longer Act nael Perez Mora MD Active CHERATUSSIN AC 100-10 MG/5ML ORAL SYRUP 1 tsp by mouth every 4 hours as needed for cough GUAIFENESIN-CODEINE 87246056468 No Longe r Active Hugo Restrepo MD Active ACETAMINOPHEN-CODEINE #3 300-30 MG ORAL TABLET 1 PO Q 4-6 HRS [place] ACETAMINOPHEN-CODEINE 38836049528 No Longer Active Hugo Restrepo MD Active LEVAQUIN 500 MG ORAL TABLET take one po QD LEVO FLOXACIN 90018134488 No Longer Active Griffin HERNANDEZ Active PREDNISONE 20 MG ORAL TABLET Take 3 tabs daily for 3 d ays, 2 tabs daily for 3 days, 1 tab daily for 3 days, 1/2 tab daily for 3 days 11/07 PREDNISONE 38481193055 No Longer Active Carlton Hu MD Acti ve AVELOX 400 MG ORAL TABLET 1 tab by mouth daily MOXIFLOXACIN HCL 49759502820 No Longer Active Carlton Hu MD Active CHERATUSSIN AC 100-10 MG/5ML ORAL SYRUP 1 tsp by mouth every 4 hours as needed for cough GUAIFENESIN-CODEINE 46194062759 No Longe r Active Hugo Restrepo MD Active AVELOX 400 MG ORAL TABLET 1 tab by mouth daily MOXIFLOXACIN HCL 69018851696 No Longer Active Marcy De La Rosa MD PhD Active TERBINAFINE HCL 250 MG ORAL TABLET 1 qDay T ERBINAFINE HCL 75805748397 No Longer Active Marcy De La Rosa MD PhD Active CHERATUSSIN AC 100-10 MG/5ML ORAL SYRUP 1 tsp by mouth every 4 hours as needed for cough GUAIFENESIN-CODEINE 83149473702 No Longe r Active Marcy De La Rosa MD PhD Active AVELOX 400 MG ORAL TABLET 1 tab by mouth daily MOXIFLOXACIN HCL 72058781377 No Longer Active Marcy De La Rosa MD PhD Active HYDROCODONE-ACETAMINOPHEN 5-325 MG ORAL TABLET 1 po q 6hr PRN co ugh HYDROCODONE-ACETAMINOPHEN 22716968350 No Longer Active Marcy De La Rosa MD PhD Active PREDNISONE 20 MG ORAL TABLET 2 tabs daily for 3 days, 1 tab daily for 3 days, 1/2 tab daily for 2 days PREDNISONE 66276578965 No Longer Active Carlton Hu MD Active CEFDINIR 300 MG ORAL CAPSULE by mouth twice a day 2011 CEFDINIR 76932564170 No Longer Active Carlton Hu MD Acti ve HYDROCHLOROTHIAZIDE 25 MG ORAL TABLET 1 TAB PO DAILY HYDROCHLOROTHIAZIDE 72669119769 Active Carlton Hu MD A ctive ACETAMINOPHEN-CODEINE #3 300-30 MG ORAL TABLET 1 tablet po q 4-6 hrs prn pain ACETAMINOPHEN-CODEINE 44584432621 No Longer Active Ridge Bess DO Active ZITHROMAX 250 MG ORAL TABLET 2 po today, then 1 po q days 2-5 20 03/07/07 AZITHROMYCIN 21415411186 No Longer Active Carlton Hu MD Active CHERATUSSIN AC 100-10 MG/5ML ORAL SYRUP take 1 tsp po q4-6 h ours prn cough GUAIFENESIN-CODEINE 14352242673 No Longer Active Jayden Hu MD Active ACETAMINOPHEN-CODEINE #3 300-30 MG ORAL TABLET 1 PO Q 4-6 HR PRN PAIN ACETAMINOPHEN-CODEINE 33341317703 No Longer Active Da raimundo Hu MD Active LORTAB 7.5-500 MG/15ML ORAL ELIXIR 7.5 ml po q 4 hour prn cough HYDROCODONE-ACETAMINOPHEN 19947485349 No Longer Active Carlton Hu MD Active PREDNISONE 20 MG ORAL TABLET 1 po bid 3 days, then 1 po q day 3 days PREDNISONE 32910539671 No Longer Active Carlton Hu MD Active CEFDINIR 300 MG ORAL CAPSULE by mouth twice a day 2011 CEFDINIR 14832606513 No Longer Active Carlton Hu MD Acti ve CEFDINIR 300 MG ORAL CAPSULE by mouth twice a day 2010 CEFDINIR 09712969154 No Longer Active Carlton Hu MD Acti ve CEFDINIR 300 MG ORAL CAPSULE by mouth twice a day 2010 CEFDINIR 25275431448 No Longer Active Carlton Hu MD Acti ve TESSALON PERLES 100 MG ORAL CAPSULE 1 tablet by mouth 3 times daily as needed for cough BENZONATATE 34997068168 No Longer Active Carlton Hu MD Active CEFDINIR 300 MG ORAL CAPSULE by mouth twice a day 2010 CEFDINIR 84479065789 No Longer Active Carlton Hu MD Acti ve ZITHROMAX Z-REYNA 250 MG ORAL TABLET 2 today, then 1 daily for 4 d ays AZITHROMYCIN 83761077997 No Longer Active Hugo Restrepo MD Active TESSALON PERLES 100 MG ORAL CAPSULE 1 tablet by mouth 3 times daily as needed for cough TESSALBARRON PERLES 100 MG ORAL CAPSULE 71893 7 BENZONATATE Inactive PREDNISONE 20 MG ORAL TABLET 1 po bid 3 days, then 1 po q day 3 days PREDNISONE 20 MG ORAL TABLET 873875 PREDNISONE [place] ctive LORTAB 7.5-500 MG/15ML ORAL ELIXIR 7.5 [...] cough CHERATUSSIN AC 100-10 MG/5ML ORAL SYRUP 398054 GUAIFENESIN-CODEINE Inactive ACETAMINOPHEN-CODEINE #3 300-30 MG ORAL TABLET 1 tablet po q 4-6 hrs prn pain ACETAMINOPHEN-CODEINE #3 300-30 MG ORAL TABLET ACETAMINOPHEN-CODEINE Inactive HYDROCODONE-ACETAMINOPHEN 5-325 MG ORAL TABLET 1 po q 6hr PRN co ugh HYDROCODONE-ACETAMINOPHEN 5-325 MG ORAL TABLET 466882 HYDROCODONE-ACETAMINOPHEN Inactive AVELOX 400 MG ORAL TABLET 1 tab by mouth daily AVELOX 400 MG ORAL TABLET 843297 MOXIFLOXACIN HCL Inactive CHERATUSSIN AC 100-10 MG/5ML ORAL SYRUP 1 tsp by mouth every 4 hours as needed for cough CHERATUSSIN AC 100-10 MG/5ML ORAL SYRUP 9 51186 GUAIFENESIN-CODEINE Inactive TERBINAFINE HCL 250 MG ORAL TABLET 1 qDay 07/08 TERBINAFINE HCL 250 MG ORAL TABLET 212018 TERBINAFINE HCL Inactive CHERATUSSIN AC 100-10 MG/5ML ORAL SYRUP 1 tsp by mouth every 4 hours as needed for cough CHERATUSSIN AC 100-10 MG/5ML ORAL SYRUP 9 10161 GUAIFENESIN-CODEINE Inactive ACETAMINOPHEN-CODEINE #3 300-30 MG ORAL TABLET 1 PO Q 4-6 HRS [place] N PAIN ACETAMINOPHEN-CODEINE #3 300-30 MG ORAL TABLET ACETAMINOPHEN-CODEINE Inactive CHERATUSSIN AC 100-10 MG/5ML ORAL SYRUP 1 tsp by mouth every 4 hours as needed for cough CHERATUSSIN AC 100-10 MG/5ML ORAL SYRUP 9 06414 GUAIFENESIN-CODEINE Inactive AUGMENTIN 875-125 MG ORAL TABLET 1 tab by mouth twice daily with food AUGMENTIN 875-125 MG ORAL TABLET AMOXICIL MADELINE-POT CLAVULANATE Inactive CHERATUSSIN AC 100-10 MG/5ML ORAL SYRUP take one tsp po Q 6h ours prn cough CHERATUSSIN AC 100-10 MG/5ML ORAL SYRUP 968749 GUAIFENESIN-CODEINE Inactive PROPRANOLOL HCL 60 MG ORAL TABLET 1 PO Q D PROPRANOLOL HCL 60 MG ORAL TABLET 101041 PROPRANOLOL HCL Inactive TOPAMAX 50 MG ORAL TABLET take 1 tab po BID for migraines. 07/02 TOPAMAX 50 MG ORAL TABLET 105911 TOPIRAMATE Inacti ve TOPAMAX 25 MG ORAL TABLET 1 qHS x 1 week, then 1 BID x 1 week, then 1 qAM and 2 qHS x 1 week, then 2 BID (migraine prevention) TOPAMAX 25 MG ORAL TABLET 139372 TOPIRAMATE Inactive LYRICA 75 MG ORAL CAPSULE TAKE 1 CAPSULE BY MOUTH TWICE DAILY LYRICA 75 MG ORAL CAPSULE PREGABALIN Inactive SYMBICORT 160-4.5 MCG/ACT INHALATION AEROSOL 2 puffs bid wit h rinse after SYMBICORT 160-4.5 MCG/ACT INHALATION AEROSOL BUDESONIDE- FORMOTEROL FUMARATE Inactive PROMETHAZINE-CODEINE 6.25-10 MG/5ML ORAL SYRUP 1 tsp b y mouth every 8 hours prn cough PROMETHAZINE-CODEINE 6.25-10 MG/ 5ML ORAL SYRUP 245888 PROMETHAZINE-CODEINE Inactive CYMBALTA 30 MG ORAL CAPSULE DELAYED RELEASE PARTICLES 1 cap by mouth daily CYMBALTA 30 MG ORAL CAPSULE DELAYED RELE ASE PARTICLES 902484 DULOXETINE HCL Inactive PREMARIN 0.625 MG ORAL TABLET TAKE 1 TAB BY MOUTH DAILY PREMARIN 0.625 MG ORAL TABLET ESTROGENS CONJUGATED Inactive CHERATUSSIN AC 100-10 MG/5ML ORAL SYRUP 1 tsp by mouth every 4 hours as needed for cough CHERATUSSIN AC 100-10 MG/5ML ORAL SYRUP 9 39214 GUAIFENESIN-CODEINE Inactive PROMETHAZINE-CODEINE 6.25-10 MG/5ML ORAL SYRUP 1 tsp b y mouth every 6 hours if needed for cough PROMETHAZINE-CODEINE 6.25-10 MG/5ML ORAL SYRUP 340836 PROMETHAZINE-CODEINE Inactive CHERATUSSIN AC 100-10 MG/5ML ORAL SYRUP 1 tsp by mouth every 4 hours as needed for cough CHERATUSSIN AC 100-10 MG/5ML ORAL SYRUP 9 66819 GUAIFENESIN-CODEINE Inactive FLUTICASONE PROPIONATE 50 MCG/ACT NASAL SUSPENSION 1 t o 2 sprays each nostril daily FLUTICASONE PROPIONATE 50 MCG/AC T NASAL SUSPENSION 9641832 FLUTICASONE PROPIONATE Inactive PREDNISONE 20 MG ORAL TABLET 3 tab PO qd x 2d, 2 tab P O qd x 2d, 1 tab PO qd x 2d, 1/2 tab PO qd x 2d PREDNISONE 20 MG ORAL TAB LET 041392 PREDNISONE Inactive LEVOFLOXACIN 500 MG ORAL TABLET 1 tab PO daily x 10 days LEVOFLOXACIN 500 MG ORAL TABLET 567003 LEVOFLOXACIN Inactive CYCLOBENZAPRINE HCL 10 MG ORAL TABLET 1 tablet by mouth BID prn had pain CYCLOBENZAPRINE HCL 10 MG ORAL TABLET 247993 CYCLOBENZAPRINE HCL Inactive ZOCOR 40 MG ORAL [...] FLUTICASONE PROPIO EFE 50 MCG/ACT NASAL SUSPENSION 4960218 FLUTICASONE PROPIONATE Inactive TUSSIONEX PENNKINETIC ER 10-8 [...] three days PREDNISONE 20 MG ORAL TABLET 730334 PREDNIS ONE Inactive PROAIR HFA 108 (90 BASE) MCG/ACT INHALATION AEROSOL SO LUTION 2 puffs four times a day as needed PROAIR HFA 108 (90 B ASE) MCG/ACT INHALATION AEROSOL SOLUTION ALBUTEROL SULFATE Inactive PREDNISONE 20 MG ORAL TABLET two tabs by mouth today, then one tab by mouth days two and three and four PREDNISONE 20 MG ORAL TAB LET 482447 PREDNISONE Inactive TUSSIONEX PENNKINETIC ER 10-8 MG/5ML [...] bid 04/20 TOPAMAX 100 MG ORAL TABLET 935720 TOPIRAMATE Inactive CYMBALTA 30 MG ORAL CAPSULE DELAYED RELEASE PARTICLES 1 cap by mouth daily for depression CYMBALTA 30 MG ORAL CAPSULE DELAYED RELEASE PARTICLES 392671 DULOXETINE HCL Inactive ZITHROMAX Z-REYNA 250 MG ORAL TABLET 2 today, then 1 daily for 4 d ays ZITHROMAX Z-REYNA 250 MG ORAL TABLET 180268 AZITHROMYCIN Inactive CEFDINIR 300 MG ORAL CAPSULE by mouth twice a day 2010 CEFDINIR 300 MG ORAL CAPSULE 079745 CEFDINIR Inactive CEFDINIR 300 MG ORAL CAPSULE by mouth twice a day 2010 CEFDINIR 300 MG ORAL CAPSULE 480713 CEFDINIR Inactive CEFDINIR 300 MG ORAL CAPSULE by mouth twice a day 2010 CEFDINIR 300 MG ORAL CAPSULE 078744 CEFDINIR Inactive CEFDINIR 300 MG ORAL CAPSULE by mouth twice a day 2011 CEFDINIR 300 MG ORAL CAPSULE 101457 CEFDINIR Inactive ZITHROMAX 250 MG ORAL TABLET 2 po today, then 1 po q days 2-5 03/07/07 ZITHROMAX 250 MG ORAL TABLET 240831 AZITHROMYCIN Greer ctive CEFDINIR 300 MG ORAL CAPSULE by mouth twice a day 2011 CEFDINIR 300 MG ORAL CAPSULE 736892 CEFDINIR Inactive PREDNISONE 20 MG ORAL TABLET 2 tabs daily for 3 days, 1 tab daily for 3 days, 1/2 tab daily for 2 days PREDNISONE 20 MG ORAL T ABLET 941542 PREDNISONE Inactive AVELOX 400 MG ORAL TABLET 1 tab by mouth daily AVELOX 400 MG ORAL TABLET 390702 MOXIFLOXACIN HCL Inactive AVELOX 400 MG ORAL TABLET 1 tab by mouth daily AVELOX 400 MG ORAL TABLET 774056 MOXIFLOXACIN HCL Inactive PREDNISONE 20 MG ORAL TABLET Take 3 tabs daily for 3 d ays, 2 tabs daily for 3 days, 1 tab daily for 3 days, 1/2 tab daily for 3 days 11/07 PREDNISONE 20 MG ORAL TABLET 791859 PREDNISONE Inactive LEVAQUIN 500 MG ORAL TABLET take one po QD LEVAQUIN 500 MG ORAL TABLET 299429 LEVOFLOXACIN Inactive AZITHROMYCIN 250 MG ORAL TABLET 2 po qd x 1 day, then 1 po q d x 4 days AZITHROMYCIN 250 MG ORAL TABLET 496375 AZITHROMY GIOVANNI Inactive MEDROL 4 MG ORAL TABLET THERAPY PACK 6 tabs on day 1, 5 tabs on day 2, 4 tabs on day 3, 3 tabs on day 4, 2 tabs on day 5, 1 tab on day 6 2013 MEDROL 4 MG ORAL TABLET THERAPY PACK 005699 METHYLPREDNISOLONE Greer ctive CHERATUSSIN AC 100-10 MG/5ML ORAL SYRUP 5ml po q6hr PRN Cough 20 13/04/14 CHERATUSSIN AC 100-10 MG/5ML ORAL SYRUP 135410 GUAIFENE SIN-CODEINE Inactive TRIAMCINOLONE ACETONIDE 0.1 % EXTERNAL CREAM apply three roger es daily prn rash TRIAMCINOLONE ACETONIDE 0.1 % EXTERNAL CREAM 101 4314 TRIAMCINOLONE ACETONIDE Inactive AZITHROMYCIN 250 MG ORAL TABLET 2 po qd x 1 day, then 1 po q d x 4 days AZITHROMYCIN 250 MG ORAL TABLET 903464 AZITHROMY GIOVANNI Inactive MEDROL 4 MG ORAL TABLET THERAPY PACK 6 pills x 1 day, then 5 pills x 1 day then 4 pills x 1 day, then 3 pills x 1 day, then 2 pills x 1 day, then 1 pill x 1 day, then stop MEDROL 4 MG ORAL TABLET THERAPY PACK 500917 METHYLPREDNISOLONE Inactive AMOXICILLIN 500 MG ORAL CAPSULE 1 tab by mouth 3 times daily x 10 days AMOXICILLIN 500 MG ORAL CAPSULE 641680 AMOXICILL IN Inactive AMOXICILLIN 500 MG ORAL CAPSULE 1 tab by mouth 3 times daily x 10 days AMOXICILLIN 500 MG ORAL CAPSULE 503374 AMOXICILL IN Inactive ZITHROMAX 250 MG ORAL TABLET 2 po today, then 1 po q days 2-5 20 12/08/14 ZITHROMAX 250 MG ORAL TABLET 233927 AZITHROMYCIN [place] [facility] AUGMENTIN 875-125 MG ORAL TABLET 1 po BID x 10 days 20 13/01/20 AUGMENTIN 875-125 MG ORAL TABLET AMOXICILLIN-POT CLAVULANATE Inactive ZITHROMAX Z-REYNA 250 MG ORAL TABLET 2 today, then 1 daily for 4 d ays ZITHROMAX Z-REYNA 250 MG ORAL TABLET 403909 AZITHROMYCIN Inactive ZITHROMAX 250 MG ORAL TABLET 2 po today, then 1 po q days 2-5 20 14/03/21 ZITHROMAX 250 MG ORAL TABLET 245765 AZITHROMYCIN [place] [facility] ZITHROMAX Z-REYNA 250 MG ORAL TABLET 2 today, then 1 daily for 4 d ays ZITHROMAX Z-REYNA 250 MG ORAL TABLET 434661 AZITHROMYCIN Inactive CEFDINIR 300 MG ORAL CAPSULE 1 po BID x 10 days 06/21 CEFDINIR 300 MG ORAL CAPSULE 328428 CEFDINIR Inactive ZITHROMAX 250 MG ORAL TABLET 2 po today, then 1 po q days 2-5 20 13/08/10 ZITHROMAX 250 MG ORAL TABLET 191369 AZITHROMYCIN [place] [facility] LEVAQUIN 500 MG ORAL TABLET 1 tablet by mouth daily 20 13/09/24 LEVAQUIN 500 MG ORAL TABLET 19971102 LEVOFLOXACIN Inactive SINGULAIR 10 MG ORAL TABLET 1 po qday for allergies 20 14/01/12 SINGULAIR 10 MG ORAL TABLET [id number] MONTELUKAST SODIUM Inactive AMOXICILLIN 500 MG ORAL CAPSULE 2 po BID x 10 days 201 09/29/08 AMOXICILLIN 500 MG ORAL CAPSULE 898473 AMOXICILLIN Inactive PREDNISONE 20 MG ORAL TABLET 2 tabs daily for 3 days, 1 tab daily for 3 days, 1/2 tab daily for 2 days PREDNISONE 20 MG ORAL T ABLET 298563 PREDNISONE Inactive ZITHROMAX Z-REYNA 250 MG ORAL TABLET 2 today, then 1 daily for 4 d ays ZITHROMAX Z-REYNA 250 MG ORAL TABLET 528936 AZITHROMYCIN Inactive PREDNISONE 20 MG ORAL TABLET 2 tabs daily for 3 days, 1 tab daily for 3 days, 1/2 tab daily for 2 days PREDNISONE 20 MG ORAL T ABLET 779932 PREDNISONE Inactive ZITHROMAX 250 MG ORAL TABLET 2 po today, then 1 po q days 2-5 20 14/09/04 ZITHROMAX 250 MG ORAL TABLET 079337 AZITHROMYCIN [place] [facility] AMOXICILLIN 500 MG ORAL CAPSULE 1 cap by mouth three times a day AMOXICILLIN 500 MG ORAL CAPSULE 267569 AMOXICILLIN Inactive TERBINAFINE HCL 250 MG ORAL TABLET 1 qDay for nail fungus 7 TERBINAFINE HCL 250 MG ORAL TABLET 986186 TERBINAFINE HCL Inact nael AUGMENTIN 875-125 MG ORAL TABLET 1 po BID x 10 days 16/03/22 AUGMENTIN 875-125 MG ORAL TABLET AMOXICILLIN-POT CLAVULANATE Inactive PREDNISONE 20 MG ORAL TABLET 2 po qd x 5 days PREDNISONE 20 MG ORAL TABLET 754651 PREDNISONE Inactive AZITHROMYCIN 250 MG ORAL TABLET 2 po qd x 1 day, then 1 po q d x 4 days AZITHROMYCIN 250 MG ORAL TABLET 756107 AZITHROMY GIOVANNI Inactive PREDNISONE 50 MG ORAL TABLET Take 50 mg dialy for 6 day s 7 PREDNISONE 50 MG ORAL TABLET 547870 PREDNISONE Inactive AUGMENTIN 875-125 MG ORAL TABLET 1 po BID x 10 days 20 18/04/16 AUGMENTIN 875-125 MG ORAL TABLET AMOXICILLIN-POT CLAVULANATE Inactive DOXYCYCLINE HYCLATE 100 MG ORAL CAPSULE 1 cap by mouth twice latasha ly DOXYCYCLINE HYCLATE 100 MG ORAL CAPSULE 9057516 DOXYCYCL INE HYCLATE Inactive PREDNISONE 20 MG ORAL TABLET Take 2 tabs day 1 and 2 and 1 t ab days 3 and 4 PREDNISONE 20 MG ORAL TABLET 154121 PREDNISONE Inactive Vital Signs Date Name Value [...] - Chem istry sodium, serum 139 mmol/L 558-933 8915/10/12 potassium, serum 3.8 mmol/L 3.5-5.2 chloride, serum [...] negative Encounters Code Encounter Date Provider Facility CPT-16729 Level 3 Est. Patient 16:53:54 CDT May haas MD [facility]-62417 [id number] Vst-Est Level IV 08:41:[address] Carlton Hu MD [facility]-90791 Level 3 Est. Patient 09:46:49 SLEEP TECHNICIAN David lion [facility]-91916 [id number] Vst-Est Level III 11:12:16 CDT Yanet Bess DO [facility]-86186 Level 3 Est. Patient 11:34:49 SLEEP TECHNICIAN Perez Mora MD [facility]-82127 Level 4 Est. Patient 09:51:32 SLEEP TECHNICIAN Carlton rich MD [facility]-76638 Level 3 Est. Patient 10:26:00 SLEEP TECHNICIAN Elise stephenson [employer] [facility]-47705 Level 3 Est. Patient 13:35:41 SLEEP TECHNICIAN Carlton rich MD [facility]-55865 Level 3 Est. Patient 10:03:52 SLEEP TECHNICIAN Carlton rich MD [facility]-56391 Level 3 Est. Patient 12:17:50 CDT Hugo Restrepo MD [facility]-70286 Level 3 Est. Patient 13:42:38 CDT Elise Are [facility] CPT-69956 Level 3 Est. Patient 13:23:51 CDT Diya Mariana cobian [facility] CPT-80313 Level 3 Est. Patient 14:22:19 SLEEP TECHNICIAN Diya cobian [facility] CPT-74534 Level 3 Est. Patient 10:11:46 CDT Carlton rich MD [facility] CPT-75085 Level 3 Est. Patient 17:29:43 CDT Elise Are [facility] CPT-05558 Level 3 Est. Patient 11:58:06 CDT Elise Are [facility] CPT-91858 Level 4 Est. Patient 14:36:51 CDT Carlton rich MD [facility] CPT-80153 Level 3 Est. Patient 18:16:00 SLEEP TECHNICIAN Blaine HERNANDEZ [facility] CPT-48501 Level 3 Est. Patient 09:45:49 SLEEP TECHNICIAN Carlton rich MD [facility] CPT-10757 Level 3 Est. Patient 13:19:20 CDT Carlton rich MD [facility] CPT-42543 Level 3 Est. Patient 13:06:43 CDT Ridge tma DO [facility] CPT-45874 Level 3 Est. Patient 10:03:07 CDT Perez Mora MD [facility] CPT-16884 Level 3 Est. Patient 19:50:35 SLEEP TECHNICIAN Carlton rich MD [facility] CPT-00213 Level 4 Est. Patient 18:05:01 SLEEP TECHNICIAN Carlton rich MD [facility] CPT-00034 Level 3 Est. Patient 10:45:55 SLEEP TECHNICIAN Hugo Restrepo MD [facility] CPT-77698 Level 3 Est. Patient 14:12:49 CDT Griffin HERNANDEZ [facility] CPT-97875 Level 3 Est. Patient 17:37:24 CDT Carlton rich MD [facility] CPT-48278 Level 3 Est. Patient 16:51:54 CDT Carlton rich MD [facility] CPT-49667 Level 3 Est. Patient 12:18:11 CDT Hugo Restrepo MD [facility] CPT-13585 Level 3 Est. Patient 11:30:25 CDT Marcy crisostomo MD PhD [facility] CPT-66806 Level 3 Est. Patient 12:00:47 SLEEP TECHNICIAN Carlton rich MD [facility] CPT-84032 Level 3 Est. Patient 16:31:06 SLEEP TECHNICIAN Carlton rich MD [facility] CPT-78330 Level 3 Est. Patient 16:23:24 SLEEP TECHNICIAN Ridge tam DO [facility] CPT-92561 Level 3 Est. Patient 12:34:12 CDT Carlton rich MD [facility] CPT-11389 Level 2 Est. Patient 15:43:33 CDT Robi armstrong MD [facility] CPT-21625 Level 4 Est. Patient 14:04:44 CDT Carlton rich MD [facility] CPT-74463 Level 3 Est. Patient 05:47:59 CDT Ridge tam [facility] CPT-92567 Level 3 Est. Patient 13:12:53 SLEEP TECHNICIAN Carlton rich MD [facility] CPT-82552 Level 3 Est. Patient 14:26:53 CDT Hugo Restrepo MD [facility] Procedures Code Procedure Name Date Entry Date Standard Desc ription CPT-000 Give Appropriate Flu Vaccine 14:14:31 CDT 2 CPT-J1040 Depo Medrol 80 mg (Methyl Prednisolone A cetate) 10:42:44 CDT CPT-J1100 Decadron 8mg (Dexamethasone) 10:42:44 CDT 2 CPT-J0696 Rocephin 1gm Inj Solr 14:32:13 CDT CPT-J1020 Depo Medrol 60 mg (Methyl Prednisolone A cetate) 14:32:13 CDT CPT-J1100 Decadron 6mg (Dexamethasone) 14:32:13 CDT 2 CPT-75413 Hip bilat min 2V w AP pelvis 13:16:20 CDT 2 CPT-43017 Pelvis only 13:07:33 CDT CPT-61411 Spec Collection and Handling Fee 11:25:12 C DT CPT-37296 Fluzone Quadrivalent Intramuscular Suspe nsion 0.5 ML 14:31:55 CDT CPT-24504 Abx/Therapy Injection 13:28:47 SLEEP TECHNICIAN CPT-J2930 Solu Medrol 125 mg (Methyl Prednisolone Sodium Succinate) 12:00:47 SLEEP TECHNICIAN CPT-55805 Venipuncture Draw Fee 11:33:31 CDT CPT-37200 EKG Trac and Interp 11:21:09 CDT CPT-01054 Chest 2V Frontal and Lat 11:21:09 CDT 12/15 CPT-83114 Venipuncture Draw Fee 08:02:34 CDT CPT-11729 Chest 2V Frontal and Lat 05:47:59 CDT 06/05
--- OUTSIDE RECORDS SUMMARY | 2019-10-08 09:06 | XMS REPORT | Clinical Summary ---
Author Author Caitlin, Juliana Martinez Organization [facility] Address Unknown Phone Unavailable Allergies, [...] 1 capsule at night PENTOSAN POLYSULFATE SODIUM [id number] Active Cinthia H art HEAVY LIFT RIGGER Active CYMBALTA 30 MG ORAL CAPSULE DELAYED RELEASE PARTICLES 1 cap by mouth daily for depression DULOXETINE HCL 30023708552 No Longer Active Carlton Hu MD Active CYMBALTA 60 MG ORAL CAPSULE DELAYED RELEASE PARTICLES 1 cap by mouth daily for mood and pain DULOXETINE HCL 56688807911 Active Carlton Hu MD Active TUSSIONEX PENNKINETIC ER 10-8 MG/5ML ORAL SUSPENSION E XTENDED RELEASE 5ml po q12hr PRN Cough HYDROCOD POLST-CHLORPHEN POLST 10184355399 Active David Marianne BRICK YARD HAND Active PREDNISONE 20 MG ORAL TABLET Take 2 tabs day 1 and 2 and 1 t ab days 3 and 4 PREDNISONE 35981281146 No Longer Active David Marianne BRICK YARD HAND Active DOXYCYCLINE HYCLATE 100 MG ORAL CAPSULE 1 cap by mouth twice latasha ly DOXYCYCLINE HYCLATE 02588791774 No Longer Active David Marianne BRICK YARD HAND Active TOPAMAX 100 MG ORAL TABLET Take 1 tablet po bid TOPIRAMATE 01697315356 No Longer Active David Marianne BRICK YARD HAND Active TUSSIONEX PENNKINETIC ER 10-8 MG/5ML ORAL SUSPENSION E XTENDED RELEASE 5ml po q12hr PRN Cough HYDROCOD POLST-CHLORPHEN POLST 5 3456955409 No Longer Active David Marianne BRICK YARD HAND Active AUGMENTIN 875-125 MG ORAL TABLET 1 po BID x 10 days 18/04/16 AMOXICILLIN-POT CLAVULANATE 80939249079 No Longer Active David Marianne BRICK YARD HAND Active PREDNISONE 50 MG ORAL TABLET Take 50 mg dialy for 6 day s 7 PREDNISONE 81094420484 No Longer Active David Marianne BRICK YARD HAND Active TUSSIONEX PENNKINETIC ER 10-8 MG/5ML ORAL SUSPENSION E XTENDED RELEASE 5ml po q12hr PRN Cough HYDROCOD POLST-CHLORPHEN POLST 5 0525785706 No Longer Active Cherelle Torres RN Active PREDNISONE 20 MG ORAL TABLET two tabs by mouth today, then one tab by mouth days two and three and four PREDNISONE 71951238298 No Lo nger Active Cherelle Torres RN Active AZITHROMYCIN 250 MG ORAL TABLET 2 po qd x 1 day, then 1 po q d x 4 days AZITHROMYCIN 39020239035 No Longer Active Ridge Bess DO Active PREDNISONE 20 MG ORAL TABLET 2 po qd x 5 days P REDNISONE 69609129846 No Longer Active Perez Mora MD Active PROAIR HFA 108 (90 BASE) MCG/ACT INHALATION AEROSOL SO LUTION 2 puffs four times a day as needed ALBUTEROL SULFATE 18723468011 No Long er Active Becky Cuellar RMA Active ASPIRIN 81 MG ORAL TABLET 1 po qd ASPIRIN 57506078014 Active Carlton Hu MD Active PREDNISONE 20 MG ORAL TABLET 1 tab twice daily for 3 d ay, then one daily for three days PREDNISONE 06089398874 No Longer Active Carlton Hu MD Active AUGMENTIN 875-125 MG ORAL TABLET 1 po BID x 10 days 16/03/22 AMOXICILLIN-POT CLAVULANATE 38462370728 No Longer Active Elise Garcia APRN Active TERBINAFINE HCL 250 MG ORAL TABLET 1 qDay for nail fungus 7 TERBINAFINE HCL 47328669246 No Longer Active Carlton Hu MD A ctive AMOXICILLIN 500 MG ORAL CAPSULE 1 cap by mouth three times a day AMOXICILLIN 48040391129 No Longer Active Carlton Hu MD Active ELMIRON 100 MG ORAL CAPSULE 2 tablets in the am and 1 tablet at hs PENTOSAN POLYSULFATE SODIUM 06090228025 No Longer Active Robert Hu MD Active MUCINEX D 60-600 MG ORAL TABLET EXTENDED RELEASE 12 HOUR 1 t ab po q am PSEUDOEPHEDRINE-GUAIFENESIN 29694010979 No Longer Act nael Carlton Hu MD Active MUCINEX DM MAXIMUM STRENGTH 60-1200 MG ORAL TABLET EXT ENDED RELEASE 12 HOUR 1 tab po q am DEXTROMETHORPHAN-GUAIFENESIN 09103680295 No Longer Active Carlton Hu MD Active TUSSIONEX PENNKINETIC ER 10-8 MG/5ML ORAL SUSPENSION E XTENDED RELEASE 5ml po q12hr PRN Cough HYDROCOD POLST-CHLORPHEN POLST 5 2487090455 No Longer Active Carlton Hu MD Active POTASSIUM CHLORIDE ER 20 MEQ ORAL TABLET EXTENDED RELE ASE Take 1 by mouth 4 times daily for 7 days POTASSIUM CHLORIDE 95089858004 No Longer Active Carlton Hu MD Active ZITHROMAX 250 MG ORAL TABLET 2 po today, then 1 po q days 2-5 20 14/09/04 AZITHROMYCIN 63453378742 No Longer Active Elise Garcia APRN Active TUSSIONEX PENNKINETIC ER 10-8 MG/5ML ORAL SUSPENSION E XTENDED RELEASE 5 ml twice a day as needed for cough HYDROCOD POLST-CHLORPH EN POLST 55859873301 No Longer Active Elise Garcia APRN Active MONTELUKAST SODIUM 10 MG ORAL TABLET 1 po daily for Allergy MONTELUKAST SODIUM 73545593345 Active Carlton Hu MD Ac tive TUSSIONEX PENNKINETIC ER 10-8 MG/5ML ORAL SUSPENSION E XTENDED RELEASE 5ml po q12hr PRN Cough HYDROCOD POLST-CHLORPHEN POLST 5 2723035358 No Longer Active Hugo Restrepo MD Active GABAPENTIN 100 MG ORAL CAPSULE 1 po BID for fibromyalgia GABAPENTIN 61088376404 Active ALFREDO Holly Active LYRICA 100 MG ORAL CAPSULE Take 1 tab po BID for fibromyalgia 20 11/08/21 PREGABALIN 34142159619 No Longer Active Elise Garcia APRN A ctive PREDNISONE 20 MG ORAL TABLET 2 tabs daily for 3 days, 1 tab daily for 3 days, 1/2 tab daily for 2 days PREDNISONE 09261344483 No Longer Active Diya De Guzman APRN Active TUSSIONEX PENNKINETIC ER 10-8 MG/5ML ORAL SUSPENSION E XTENDED RELEASE 5 mL PO q 12 hrs PRN cough HYDROCOD POLST-CHLORPHEN POLST 006087 71697 No Longer Active Jiriley De Guzman APRN Active FLUTICASONE PROPIONATE 50 MCG/ACT NASAL SUSPENSION 2 s prays each nostril daily until bottle is empty FLUTICASONE PROPIONATE 558583800 99 No Longer Active Diya De Guzman APRN Active ASMANEX 60 METERED DOSES 220 MCG/INH INHALATION AEROSO L POWDER BREATH ACTIVATED 1 puff bid with rinse after MOMETASONE FUROATE 8089847 4102 No Longer Active Diya De Guzman APRN Active ZITHROMAX Z-REYNA 250 MG ORAL TABLET 2 today, then 1 daily for 4 d ays AZITHROMYCIN 63737009485 No Longer Active Elise Garcia APRN Active TUSSIONEX PENNKINETIC ER 10-8 MG/5ML ORAL SUSPENSION E XTENDED RELEASE 5ml po q12hr PRN Cough HYDROCOD POLST-CHLORPHEN POLST 5 7018940558 No Longer Active Elise Garcia APRN Active PREDNISONE 20 MG ORAL TABLET 2 tabs daily for 3 days, 1 tab daily for 3 days, 1/2 tab daily for 2 days PREDNISONE 28623412217 No Longer Active Diya De Guzman APRN Active AMOXICILLIN 500 MG ORAL CAPSULE 2 po BID x 10 days 201 09/29/08 AMOXICILLIN 51920687578 No Longer Active Diya De Guzman APRN Act nael SINGULAIR 10 MG ORAL TABLET 1 po qday for allergies 20 14/01/12 MONTELUKAST SODIUM 52634600762 No Longer Active Carlton Hu MD Active LEVAQUIN 500 MG ORAL TABLET 1 tablet by mouth daily 20 13/09/24 LEVOFLOXACIN 52014421406 No Longer Active Carlton Hu MD Acti ve FLUTICASONE PROPIONATE 50 MCG/ACT NASAL SUSPENSION 2 s prays each nostril daily for 2 weeks, then 1 spray each nostril daily. FLUTICASONE PROPIONATE 71834239682 Active Carlton Hu MD Active ZITHROMAX 250 MG ORAL TABLET 2 po today, then 1 po q days 2-5 20 13/08/10 AZITHROMYCIN 81454876745 No Longer Active Elise Garcia APRN Active XANAX 0.5 MG ORAL TABLET one tablet by mouth daily prn anxiety 2015 ALPRAZOLAM 78305132869 Active ALFREDO Holly Active CEFDINIR 300 MG ORAL CAPSULE 1 po BID x 10 days CEFDINIR 04828803096 No Longer Active Carlton Hu MD Active ZOCOR 40 MG ORAL TABLET 1 tab by mouth daily SI MVASTATIN 45493173348 No Longer Active Carlton Hu MD Active CYCLOBENZAPRINE HCL 10 MG ORAL TABLET 1 tablet by mouth BID prn had pain CYCLOBENZAPRINE HCL 89404762861 No Longer Active Jayden Hu MD Active LEVOFLOXACIN 500 MG ORAL TABLET 1 tab PO daily x 10 days LEVOFLOXACIN 67888877554 No Longer Active Carlton Hu MD Acti ve PREDNISONE 20 MG ORAL TABLET 3 tab PO qd x 2d, 2 tab P O qd x 2d, 1 tab PO qd x 2d, 1/2 tab PO qd x 2d PREDNISONE 69169005691 No Lo nger Active Carlton Hu MD Active FLUTICASONE PROPIONATE 50 MCG/ACT NASAL SUSPENSION 1 t o 2 sprays each nostril daily FLUTICASONE PROPIONATE 14647024602 No Longer Ac tive Blaine HERNANDEZ Active CHERATUSSIN AC 100-10 MG/5ML ORAL SYRUP 1 tsp by mouth every 4 hours as needed for cough GUAIFENESIN-CODEINE 19028274632 No Longe r Active Blaine HERNANDEZ Active PROMETHAZINE-CODEINE 6.25-10 MG/5ML ORAL SYRUP 1 tsp b y mouth every 6 hours if needed for cough PROMETHAZINE-CODEINE 26628732288 No Longer Active Blaine HERNANDEZ Active CHERATUSSIN AC 100-10 MG/5ML ORAL SYRUP 1 tsp by mouth every 4 hours as needed for cough GUAIFENESIN-CODEINE 54155455575 No Longe r Active Blaine HERNANDEZ Active ZITHROMAX Z-REYNA 250 MG ORAL TABLET 2 today, then 1 daily for 4 d ays AZITHROMYCIN 84750284480 No Longer Active Colubma Raida Act nael ZITHROMAX 250 MG ORAL TABLET 2 po today, then 1 po q days 2-5 20 14/03/21 AZITHROMYCIN 10922893428 No Longer Active Carlton Hu MD Active ZITHROMAX Z-REYNA 250 MG ORAL TABLET 2 today, then 1 daily for 4 d ays AZITHROMYCIN 55119831534 No Longer Active Columba Raida Act nael AUGMENTIN 875-125 MG ORAL TABLET 1 po BID x 10 days 13/01/20 AMOXICILLIN-POT CLAVULANATE 13698434260 No Longer Active Diya De Guzman APRN Active ZITHROMAX 250 MG ORAL TABLET 2 po today, then 1 po q days 2-5 20 12/08/14 AZITHROMYCIN 04606209115 No Longer Active Carlton Hu MD Active TRAMADOL HCL 50 MG ORAL TABLET 1 po tid with ES Tylenol TRAMADOL HCL 73811566279 Active ALFREDO Holly Active PREMARIN 0.625 MG ORAL TABLET TAKE 1 TAB BY MOUTH DAILY ESTROGENS CONJUGATED 49005118534 No Longer Active Ridge Bess DO A ctive CYMBALTA 30 MG ORAL CAPSULE DELAYED RELEASE PARTICLES 1 cap by mouth daily DULOXETINE HCL 92246774552 No Longer Active Ridge tam DO Active AMOXICILLIN 500 MG ORAL CAPSULE 1 tab by mouth 3 times daily x 10 days AMOXICILLIN 95071325768 No Longer Active Carlton bustamante MD Active AMOXICILLIN 500 MG ORAL CAPSULE 1 tab by mouth 3 times daily x 10 days AMOXICILLIN 29542074031 No Longer Active Carlton bustamante MD Active PROMETHAZINE-CODEINE 6.25-10 MG/5ML ORAL SYRUP 1 tsp b y mouth every 8 hours prn cough PROMETHAZINE-CODEINE 47429995243 No Longer Acti ve Carlton Hu MD Active MEDROL 4 MG ORAL TABLET THERAPY PACK 6 pills x 1 day, then 5 pills x 1 day then 4 pills x 1 day, then 3 pills x 1 day, then 2 pills x 1 day, then 1 pill x 1 day, then stop METHYLPREDNISOLONE 12471732930 No Long er Active Perez Mora MD Active AZITHROMYCIN 250 MG ORAL TABLET 2 po qd x 1 day, then 1 po q d x 4 days AZITHROMYCIN 86567922861 No Longer Active Perez Ambriz MD Active SYMBICORT 160-4.5 MCG/ACT INHALATION AEROSOL 2 puffs bid wit h rinse after BUDESONIDE-FORMOTEROL FUMARATE 94315552876 N o Longer Active Perez Mora MD Active LYRICA 75 MG ORAL CAPSULE TAKE 1 CAPSULE BY MOUTH TWICE DAILY PREGABALIN 38366758032 No Longer Active Carlton Hu MD Acti ve TOPAMAX 25 MG ORAL TABLET 1 qHS x 1 week, then 1 BID x 1 week, then 1 qAM and 2 qHS x 1 week, then 2 BID (migraine prevention) T OPIRAMATE 32059507695 No Longer Active Jerica FUENTES Active TOPAMAX 50 MG ORAL TABLET take 1 tab po BID for migraines. 07/02 TOPIRAMATE 84287302308 No Longer Active Jerica FUENTES Active TRIAMCINOLONE ACETONIDE 0.1 % EXTERNAL CREAM apply three roger es daily prn rash TRIAMCINOLONE ACETONIDE 22968553238 No Longer Active Carlton Hu MD Active PAXIL 40 MG ORAL TABLET take 1 tab po qday for depression 0 PAROXETINE HCL 08618436778 Active Carlton uH MD Active CHERATUSSIN AC 100-10 MG/5ML ORAL SYRUP 5ml po q6hr PRN Cough 20 13/04/14 GUAIFENESIN-CODEINE 90846369321 No Longer Active Carlton Hu MD Active MEDROL 4 MG ORAL TABLET THERAPY PACK 6 tabs on day 1, 5 tabs on day 2, 4 tabs on day 3, 3 tabs on day 4, 2 tabs on day 5, 1 tab on day 6 2013 METHYLPREDNISOLONE 26288789868 No Longer Active Perez Mora MD Active AZITHROMYCIN 250 MG ORAL TABLET 2 po qd x 1 day, then 1 po q d x 4 days AZITHROMYCIN 64200549258 No Longer Active Perez Ambriz MD Active PROPRANOLOL HCL 60 MG ORAL TABLET 1 PO Q D PROPRANOLOL HCL 36393051583 No Longer Active Perez Mora MD Activ e CHERATUSSIN AC 100-10 MG/5ML ORAL SYRUP take one tsp po Q 6h ours prn cough GUAIFENESIN-CODEINE 35820718236 No Longer Active Zia Mora MD Active AUGMENTIN 875-125 MG ORAL TABLET 1 tab by mouth twice daily with food AMOXICILLIN-POT CLAVULANATE 92816300305 No Longer Act nael Perez Mora MD Active CHERATUSSIN AC 100-10 MG/5ML ORAL SYRUP 1 tsp by mouth every 4 hours as needed for cough GUAIFENESIN-CODEINE 59567187206 No Longe r Active Hugo Restrepo MD Active ACETAMINOPHEN-CODEINE #3 300-30 MG ORAL TABLET 1 PO Q 4-6 HRS RI N PAIN ACETAMINOPHEN-CODEINE 59871826818 No Longer Active Hugo Restrepo MD Active LEVAQUIN 500 MG ORAL TABLET take one po QD LEVO FLOXACIN 49516486627 No Longer Active Griffin HERNANDEZ Active PREDNISONE 20 MG ORAL TABLET Take 3 tabs daily for 3 d ays, 2 tabs daily for 3 days, 1 tab daily for 3 days, 1/2 tab daily for 3 days 11/07 PREDNISONE 07975197447 No Longer Active Carlton Hu MD Acti ve AVELOX 400 MG ORAL TABLET 1 tab by mouth daily MOXIFLOXACIN HCL 69280781864 No Longer Active Carlton Hu MD Active CHERATUSSIN AC 100-10 MG/5ML ORAL SYRUP 1 tsp by mouth every 4 hours as needed for cough GUAIFENESIN-CODEINE 09871218054 No Longe r Active Hugo Restrepo MD Active AVELOX 400 MG ORAL TABLET 1 tab by mouth daily MOXIFLOXACIN HCL 74933028209 No Longer Active Marcy De La Rosa MD PhD Active TERBINAFINE HCL 250 MG ORAL TABLET 1 qDay T ERBINAFINE HCL 21799726599 No Longer Active Marcy De La Rosa MD PhD Active CHERATUSSIN AC 100-10 MG/5ML ORAL SYRUP 1 tsp by mouth every 4 hours as needed for cough GUAIFENESIN-CODEINE 04343315367 No Longe r Active Marcy De La Rosa MD PhD Active AVELOX 400 MG ORAL TABLET 1 tab by mouth daily MOXIFLOXACIN HCL 83468698422 No Longer Active Marcy De La Rosa MD PhD Active HYDROCODONE-ACETAMINOPHEN 5-325 MG ORAL TABLET 1 po q 6hr PRN co ugh HYDROCODONE-ACETAMINOPHEN 84874451008 No Longer Active Marcy De La Rosa MD PhD Active PREDNISONE 20 MG ORAL TABLET 2 tabs daily for 3 days, 1 tab daily for 3 days, 1/2 tab daily for 2 days PREDNISONE 32330818578 No Longer Active Carlton Hu MD Active CEFDINIR 300 MG ORAL CAPSULE by mouth twice a day 2011 CEFDINIR 55121639045 No Longer Active Carlton Hu MD Acti ve HYDROCHLOROTHIAZIDE 25 MG ORAL TABLET 1 TAB PO DAILY HYDROCHLOROTHIAZIDE 09210122279 Active Carlton Hu MD A ctive ACETAMINOPHEN-CODEINE #3 300-30 MG ORAL TABLET 1 tablet po q 4-6 hrs prn pain ACETAMINOPHEN-CODEINE 60332209184 No Longer Active Ridge Bess DO Active ZITHROMAX 250 MG ORAL TABLET 2 po today, then 1 po q days 2-5 20 03/07/07 AZITHROMYCIN 37827408331 No Longer Active Carlton Hu MD Active CHERATUSSIN AC 100-10 MG/5ML ORAL SYRUP take 1 tsp po q4-6 h ours prn cough GUAIFENESIN-CODEINE 40618849157 No Longer Active Jayden Hu MD Active ACETAMINOPHEN-CODEINE #3 300-30 MG ORAL TABLET 1 PO Q 4-6 HR PRN PAIN ACETAMINOPHEN-CODEINE 76632343902 No Longer Active Da raimundo Hu MD Active LORTAB 7.5-500 MG/15ML ORAL ELIXIR 7.5 ml po q 4 hour prn cough HYDROCODONE-ACETAMINOPHEN 70079329638 No Longer Active Carlton Hu MD Active PREDNISONE 20 MG ORAL TABLET 1 po bid 3 days, then 1 po q day 3 days PREDNISONE 17830528302 No Longer Active Carlton Hu MD Active CEFDINIR 300 MG ORAL CAPSULE by mouth twice a day 2011 CEFDINIR 24368838833 No Longer Active Carlton Hu MD Acti ve CEFDINIR 300 MG ORAL CAPSULE by mouth twice a day 2010 CEFDINIR 24803717234 No Longer Active Carlton Hu MD Acti ve CEFDINIR 300 MG ORAL CAPSULE by mouth twice a day 2010 CEFDINIR 11777356326 No Longer Active Carlton Hu MD Acti ve TESSALON PERLES 100 MG ORAL CAPSULE 1 tablet by mouth 3 times daily as needed for cough BENZONATATE 37341746572 No Longer Active Carlton Hu MD Active CEFDINIR 300 MG ORAL CAPSULE by mouth twice a day 2010 CEFDINIR 07825905017 No Longer Active Carlton Hu MD Acti ve ZITHROMAX Z-REYNA 250 MG ORAL TABLET 2 today, then 1 daily for 4 d ays AZITHROMYCIN 52674060895 No Longer Active Hugo Restrepo MD Active TESSALON PERLES 100 MG ORAL CAPSULE 1 tablet by mouth 3 times daily as needed for cough TESSALBARRON PERLES 100 MG ORAL CAPSULE 54963 7 BENZONATATE Inactive PREDNISONE 20 MG ORAL TABLET 1 po bid 3 days, then 1 po q day 3 days PREDNISONE 20 MG ORAL TABLET 574348 PREDNISONE [place] ctive LORTAB 7.5-500 MG/15ML ORAL ELIXIR 7.5 [...] cough CHERATUSSIN AC 100-10 MG/5ML ORAL SYRUP 594347 GUAIFENESIN-CODEINE Inactive ACETAMINOPHEN-CODEINE #3 300-30 MG ORAL TABLET 1 tablet po q 4-6 hrs prn pain ACETAMINOPHEN-CODEINE #3 300-30 MG ORAL TABLET ACETAMINOPHEN-CODEINE Inactive HYDROCODONE-ACETAMINOPHEN 5-325 MG ORAL TABLET 1 po q 6hr PRN co ugh HYDROCODONE-ACETAMINOPHEN 5-325 MG ORAL TABLET 999715 HYDROCODONE-ACETAMINOPHEN Inactive AVELOX 400 MG ORAL TABLET 1 tab by mouth daily AVELOX 400 MG ORAL TABLET 756360 MOXIFLOXACIN HCL Inactive CHERATUSSIN AC 100-10 MG/5ML ORAL SYRUP 1 tsp by mouth every 4 hours as needed for cough CHERATUSSIN AC 100-10 MG/5ML ORAL SYRUP 9 14599 GUAIFENESIN-CODEINE Inactive TERBINAFINE HCL 250 MG ORAL TABLET 1 qDay 07/08 TERBINAFINE HCL 250 MG ORAL TABLET 380345 TERBINAFINE HCL Inactive CHERATUSSIN AC 100-10 MG/5ML ORAL SYRUP 1 tsp by mouth every 4 hours as needed for cough CHERATUSSIN AC 100-10 MG/5ML ORAL SYRUP 9 20927 GUAIFENESIN-CODEINE Inactive ACETAMINOPHEN-CODEINE #3 300-30 MG ORAL TABLET 1 PO Q 4-6 HRS RI N PAIN ACETAMINOPHEN-CODEINE #3 300-30 MG ORAL TABLET ACETAMINOPHEN-CODEINE Inactive CHERATUSSIN AC 100-10 MG/5ML ORAL SYRUP 1 tsp by mouth every 4 hours as needed for cough CHERATUSSIN AC 100-10 MG/5ML ORAL SYRUP 9 34711 GUAIFENESIN-CODEINE Inactive AUGMENTIN 875-125 MG ORAL TABLET 1 tab by mouth twice daily with food AUGMENTIN 875-125 MG ORAL TABLET 476703 AMOXICIL MADELINE-POT CLAVULANATE Inactive CHERATUSSIN AC 100-10 MG/5ML ORAL SYRUP take one tsp po Q 6h ours prn cough CHERATUSSIN AC 100-10 MG/5ML ORAL SYRUP 897096 GUAIFENESIN-CODEINE Inactive PROPRANOLOL HCL 60 MG ORAL TABLET 1 PO Q D PROPRANOLOL HCL 60 MG ORAL TABLET 524448 PROPRANOLOL HCL Inactive TOPAMAX 50 MG ORAL TABLET take 1 tab po BID for migraines. 07/02 TOPAMAX 50 MG ORAL TABLET 963578 TOPIRAMATE Inacti ve TOPAMAX 25 MG ORAL TABLET 1 qHS x 1 week, then 1 BID x 1 week, then 1 qAM and 2 qHS x 1 week, then 2 BID (migraine prevention) TOPAMAX 25 MG ORAL TABLET 438610 TOPIRAMATE Inactive LYRICA 75 MG ORAL CAPSULE TAKE 1 CAPSULE BY MOUTH TWICE DAILY LYRICA 75 MG ORAL CAPSULE PREGABALIN Inactive SYMBICORT 160-4.5 MCG/ACT INHALATION AEROSOL 2 puffs bid wit h rinse after SYMBICORT 160-4.5 MCG/ACT INHALATION AEROSOL BUDESONIDE- FORMOTEROL FUMARATE Inactive PROMETHAZINE-CODEINE 6.25-10 MG/5ML ORAL SYRUP 1 tsp b y mouth every 8 hours prn cough PROMETHAZINE-CODEINE 6.25-10 MG/ 5ML ORAL SYRUP 859389 PROMETHAZINE-CODEINE Inactive CYMBALTA 30 MG ORAL CAPSULE DELAYED RELEASE PARTICLES 1 cap by mouth daily CYMBALTA 30 MG ORAL CAPSULE DELAYED RELE ASE PARTICLES 928264 DULOXETINE HCL Inactive PREMARIN 0.625 MG ORAL TABLET TAKE 1 TAB BY MOUTH DAILY PREMARIN 0.625 MG ORAL TABLET ESTROGENS CONJUGATED Inactive CHERATUSSIN AC 100-10 MG/5ML ORAL SYRUP 1 tsp by mouth every 4 hours as needed for cough CHERATUSSIN AC 100-10 MG/5ML ORAL SYRUP 9 90636 GUAIFENESIN-CODEINE Inactive PROMETHAZINE-CODEINE 6.25-10 MG/5ML ORAL SYRUP 1 tsp b y mouth every 6 hours if needed for cough PROMETHAZINE-CODEINE 6.25-10 MG/5ML ORAL SYRUP 994332 PROMETHAZINE-CODEINE Inactive CHERATUSSIN AC 100-10 MG/5ML ORAL SYRUP 1 tsp by mouth every 4 hours as needed for cough CHERATUSSIN AC 100-10 MG/5ML ORAL SYRUP 9 29236 GUAIFENESIN-CODEINE Inactive FLUTICASONE PROPIONATE 50 MCG/ACT NASAL SUSPENSION 1 t o 2 sprays each nostril daily FLUTICASONE PROPIONATE 50 MCG/AC T NASAL SUSPENSION 4135131 FLUTICASONE PROPIONATE Inactive PREDNISONE 20 MG ORAL TABLET 3 tab PO qd x 2d, 2 tab P O qd x 2d, 1 tab PO qd x 2d, 1/2 tab PO qd x 2d PREDNISONE 20 MG ORAL TAB LET 698862 PREDNISONE Inactive LEVOFLOXACIN 500 MG ORAL TABLET 1 tab PO daily x 10 days LEVOFLOXACIN 500 MG ORAL TABLET 245827 LEVOFLOXACIN Inactive CYCLOBENZAPRINE HCL 10 MG ORAL TABLET 1 tablet by mouth BID prn had pain CYCLOBENZAPRINE HCL 10 MG ORAL TABLET 264868 CYCLOBENZAPRINE HCL Inactive ZOCOR 40 MG ORAL [...] FLUTICASONE PROPIO EFE 50 MCG/ACT NASAL SUSPENSION 0327439 FLUTICASONE PROPIONATE Inactive TUSSIONEX PENNKINETIC ER 10-8 [...] three days PREDNISONE 20 MG ORAL TABLET 072578 PREDNIS ONE Inactive PROAIR HFA 108 (90 BASE) MCG/ACT INHALATION AEROSOL SO LUTION 2 puffs four times a day as needed PROAIR HFA 108 (90 B ASE) MCG/ACT INHALATION AEROSOL SOLUTION ALBUTEROL SULFATE Inactive PREDNISONE 20 MG ORAL TABLET two tabs by mouth today, then one tab by mouth days two and three and four PREDNISONE 20 MG ORAL TAB LET 705590 PREDNISONE Inactive TUSSIONEX PENNKINETIC ER 10-8 MG/5ML ORAL SUSPENSION E XTENDED RELEASE 5ml po q12hr PRN Cough TUSSIONEX PENNKINETI C ER 10-8 MG/5ML ORAL SUSPENSION EXTENDED RELEASE HYDROCOD POLST-CHLORPHEN POLST I nactive TUSSIONEX PENNKINETIC ER 10-8 MG/5ML ORAL SUSPENSION E XTENDED RELEASE 5ml po q12hr PRN Cough KIETX LAWSON C ER 10-8 MG/5ML ORAL SUSPENSION EXTENDED RELEASE HYDROCOD POLST-CHLORPHEN POLST I nactive TOPAMAX 100 MG ORAL TABLET Take 1 tablet po bid 04/20 TOPAMAX 100 MG ORAL TABLET 610947 TOPIRAMATE Inactive CYMBALTA 30 MG ORAL CAPSULE DELAYED RELEASE PARTICLES 1 cap by mouth daily for depression CYMBALTA 30 MG ORAL CAPSULE DELAYED RELEASE PARTICLES 740039 DULOXETINE HCL Inactive ZITHROMAX Z-REYNA 250 MG ORAL TABLET 2 today, then 1 daily for 4 d ays ZITHROMAX Z-REYNA 250 MG ORAL TABLET 070327 AZITHROMYCIN Inactive CEFDINIR 300 MG ORAL CAPSULE by mouth twice a day 2010 CEFDINIR 300 MG ORAL CAPSULE 071734 CEFDINIR Inactive CEFDINIR 300 MG ORAL CAPSULE by mouth twice a day 2010 CEFDINIR 300 MG ORAL CAPSULE 327693 CEFDINIR Inactive CEFDINIR 300 MG ORAL CAPSULE by mouth twice a day 2010 CEFDINIR 300 MG ORAL CAPSULE 509062 CEFDINIR Inactive CEFDINIR 300 MG ORAL CAPSULE by mouth twice a day 2011 CEFDINIR 300 MG ORAL CAPSULE 831523 CEFDINIR Inactive ZITHROMAX 250 MG ORAL TABLET 2 po today, then 1 po q days 2-5 20 03/07/07 ZITHROMAX 250 MG ORAL TABLET 296074 AZITHROMYCIN Gre[place] ctive CEFDINIR 300 MG ORAL CAPSULE by mouth twice a day 2011 CEFDINIR 300 MG ORAL CAPSULE 047103 CEFDINIR Inactive PREDNISONE 20 MG ORAL TABLET 2 tabs daily for 3 days, 1 tab daily for 3 days, 1/2 tab daily for 2 days PREDNISONE 20 MG ORAL T ABLET 157082 PREDNISONE Inactive AVELOX 400 MG ORAL TABLET 1 tab by mouth daily AVELOX 400 MG ORAL TABLET 939732 MOXIFLOXACIN HCL Inactive AVELOX 400 MG ORAL TABLET 1 tab by mouth daily AVELOX 400 MG ORAL TABLET 044279 MOXIFLOXACIN HCL Inactive PREDNISONE 20 MG ORAL TABLET Take 3 tabs daily for 3 d ays, 2 tabs daily for 3 days, 1 tab daily for 3 days, 1/2 tab daily for 3 days 11/07 PREDNISONE 20 MG ORAL TABLET 724923 PREDNISONE Inactive LEVAQUIN 500 MG ORAL TABLET take one po QD LEVAQUIN 500 MG ORAL TABLET 824827 LEVOFLOXACIN Inactive AZITHROMYCIN 250 MG ORAL TABLET 2 po qd x 1 day, then 1 po q d x 4 days AZITHROMYCIN 250 MG ORAL TABLET 517170 AZITHROMY GIOVANNI Inactive MEDROL 4 MG ORAL TABLET THERAPY PACK 6 tabs on day 1, 5 tabs on day 2, 4 tabs on day 3, 3 tabs on day 4, 2 tabs on day 5, 1 tab on day 6 2013 MEDROL 4 MG ORAL TABLET THERAPY PACK 634738 METHYLPREDNISOLONE [place] ctive CHERATUSSIN AC 100-10 MG/5ML ORAL SYRUP 5ml po q6hr PRN Cough 20 13/04/14 CHERATUSSIN AC 100-10 MG/5ML ORAL SYRUP 496294 GUAIFENE SIN-CODEINE Inactive TRIAMCINOLONE ACETONIDE 0.1 % EXTERNAL CREAM apply three roger es daily prn rash TRIAMCINOLONE ACETONIDE 0.1 % EXTERNAL CREAM 101 4314 TRIAMCINOLONE ACETONIDE Inactive AZITHROMYCIN 250 MG ORAL TABLET 2 po qd x 1 day, then 1 po q d x 4 days AZITHROMYCIN 250 MG ORAL TABLET [id number] AZITHROMY GIOVANNI Inactive MEDROL 4 MG ORAL TABLET THERAPY PACK 6 pills x 1 day, then 5 pills x 1 day then 4 pills x 1 day, then 3 pills x 1 day, then 2 pills x 1 day, then 1 pill x 1 day, then stop MEDROL 4 MG ORAL TABLET THERAPY PACK [id number] METHYLPREDNISOLONE Inactive AMOXICILLIN 500 MG ORAL CAPSULE 1 tab by mouth 3 times daily x 10 days AMOXICILLIN 500 MG ORAL CAPSULE 583158 AMOXICILL IN Inactive AMOXICILLIN 500 MG ORAL CAPSULE 1 tab by mouth 3 times daily x 10 days AMOXICILLIN 500 MG ORAL CAPSULE 867181 AMOXICILL IN Inactive ZITHROMAX 250 MG ORAL TABLET 2 po today, then 1 po q days 2-5 20 12/08/14 ZITHROMAX 250 MG ORAL TABLET 273906 AZITHROMYCIN [place] [facility] AUGMENTIN 875-125 MG ORAL TABLET 1 po BID x 10 days 20 13/01/20 AUGMENTIN 875-125 MG ORAL TABLET 875414 AMOXICILLIN-POT CLAVULANATE Inactive ZITHROMAX Z-REYNA 250 MG ORAL TABLET 2 today, then 1 daily for 4 d ays ZITHROMAX Z-REYNA 250 MG ORAL TABLET [id number] AZITHROMYCIN Inactive ZITHROMAX 250 MG ORAL TABLET 2 po today, then 1 po q days 2-5 20 14/03/21 ZITHROMAX 250 MG ORAL TABLET 176721 AZITHROMYCIN [place] [facility] ZITHROMAX Z-REYNA 250 MG ORAL TABLET 2 today, then 1 daily for 4 d ays ZITHROMAX Z-REYNA 250 MG ORAL TABLET 028170 AZITHROMYCIN Inactive CEFDINIR 300 MG ORAL CAPSULE 1 po BID x 10 days 06/21 CEFDINIR 300 MG ORAL CAPSULE 364087 CEFDINIR Inactive ZITHROMAX 250 MG ORAL TABLET 2 po today, then 1 po q days 2-5 20 13/08/10 ZITHROMAX 250 MG ORAL TABLET 499470 AZITHROMYCIN [place] [facility] LEVAQUIN 500 MG ORAL TABLET 1 tablet by mouth daily 20 13/09/24 LEVAQUIN 500 MG ORAL TABLET 19971102 LEVOFLOXACIN Inactive SINGULAIR 10 MG ORAL TABLET 1 po qday for allergies 20 14/01/12 SINGULAIR 10 MG ORAL TABLET 20010504 MONTELUKAST SODIUM Inactive AMOXICILLIN 500 MG ORAL CAPSULE 2 po BID x 10 days 201 09/29/08 AMOXICILLIN 500 MG ORAL CAPSULE 295263 AMOXICILLIN Inactive PREDNISONE 20 MG ORAL TABLET 2 tabs daily for 3 days, 1 tab daily for 3 days, 1/2 tab daily for 2 days PREDNISONE 20 MG ORAL T ABLET 495412 PREDNISONE Inactive ZITHROMAX Z-REYNA 250 MG ORAL TABLET 2 today, then 1 daily for 4 d ays ZITHROMAX Z-REYNA 250 MG ORAL TABLET 217841 AZITHROMYCIN Inactive PREDNISONE 20 MG ORAL TABLET 2 tabs daily for 3 days, 1 tab daily for 3 days, 1/2 tab daily for 2 days PREDNISONE 20 MG ORAL T ABLET 140284 PREDNISONE Inactive ZITHROMAX 250 MG ORAL TABLET 2 po today, then 1 po q days 2-5 20 14/09/04 ZITHROMAX 250 MG ORAL TABLET 475457 AZITHROMYCIN [place] [facility] AMOXICILLIN 500 MG ORAL CAPSULE 1 cap by mouth three times a day AMOXICILLIN 500 MG ORAL CAPSULE 906512 AMOXICILLIN Inactive TERBINAFINE HCL 250 MG ORAL TABLET 1 qDay for nail fungus 7 TERBINAFINE HCL 250 MG ORAL TABLET 052714 TERBINAFINE HCL Inact nael AUGMENTIN 875-125 MG ORAL TABLET 1 po BID x 10 days 16/03/22 AUGMENTIN 875-125 MG ORAL TABLET 196906 AMOXICILLIN-POT CLAVULANATE Inactive PREDNISONE 20 MG ORAL TABLET 2 po qd x 5 days PREDNISONE 20 MG ORAL TABLET 887652 PREDNISONE Inactive AZITHROMYCIN 250 MG ORAL TABLET 2 po qd x 1 day, then 1 po q d x 4 days AZITHROMYCIN 250 MG ORAL TABLET 698380 AZITHROMY GIOVANNI Inactive PREDNISONE 50 MG ORAL TABLET Take 50 mg dialy for 6 day s 7 PREDNISONE 50 MG ORAL TABLET 674374 PREDNISONE Inactive AUGMENTIN 875-125 MG ORAL TABLET 1 po BID x 10 days 20 18/04/16 AUGMENTIN 875-125 MG ORAL TABLET 271537 AMOXICILLIN-POT CLAVULANATE Inactive DOXYCYCLINE HYCLATE 100 MG ORAL CAPSULE 1 cap by mouth twice latasha ly DOXYCYCLINE HYCLATE 100 MG ORAL CAPSULE 6152813 DOXYCYCL INE HYCLATE Inactive PREDNISONE 20 MG ORAL TABLET Take 2 tabs day 1 and 2 and 1 t ab days 3 and 4 PREDNISONE 20 MG ORAL TABLET 738751 PREDNISONE Inactive Vital Signs Date Name Value [...] Report: Basic Metabolic Panel - Chem istry creatinine, serum 0.97 mg/dL 0.60-1.30 Estimated Glomerular Filtration Rate (calc) 62 (?) mL/min/1.73m2 = OR > 60 mL/min blood glucose 103 mg/dL 65-95 carbon dioxide, venous blood 29.4 mmol/L 21.0-32 .0 chloride, serum 102 mmol/L 98-107 potassium, serum 3.8 mmol/L 3.5-5.2 sodium, serum 139 mmol/L 183-039 0396/10/12 urea nitrogen, blood 10 mg/dL 7-18 calcium, serum 8.8 mg/dL 8.5-10.1 Office Visit: check-up for elmiron - Fernanda [...] negative Encounters Code Encounter Date Provider Facility CPT-78582 Level 3 Est. Patient 16:53:54 CDT May haas MD [facility] CPT-25103 [id number] Vst-Est Level IV 08:41:[address] Carlton Hu MD [facility] CPT-47350 Level 3 Est. Patient 09:46:49 PUMP ASSEMBLER David lion [facility] CPT-71330 [id number] Vst-Est Level III 11:12:16 CDT Yanet Bess DO [facility] CPT-08781 Level 3 Est. Patient 11:34:49 PUMP ASSEMBLER Perez Mora MD [facility] CPT-06630 Level 4 Est. Patient 09:51:32 PUMP ASSEMBLER Carlton rich MD [facility] CPT-74789 Level 3 Est. Patient 10:26:00 PUMP ASSEMBLER Elise stephenson [facility] CPT-68426 Level 3 Est. Patient 13:35:41 PUMP ASSEMBLER Carlton rich MD [facility] CPT-41286 Level 3 Est. Patient 10:03:52 PUMP ASSEMBLER Carlton rich MD [facility] CPT-13285 Level 3 Est. Patient 12:17:50 CDT Hugo Restrepo MD [facility] CPT-61123 Level 3 Est. Patient 13:42:38 CDT Elise Are ll [employer] [facility] CPT-27525 Level 3 Est. Patient 13:23:51 CDT Diya cobian [facility] CPT-88935 Level 3 Est. Patient 14:22:19 PUMP ASSEMBLER Astridgreer Mariana cobian [facility] CPT-61624 Level 3 Est. Patient 10:11:46 CDT Carlton rich MD [facility] CPT-32736 Level 3 Est. Patient 17:29:43 CDT Elise Are ll [facility] CPT-54974 Level 3 Est. Patient 11:58:06 CDT Elise Are ll [facility] CPT-60631 Level 4 Est. Patient 14:36:51 CDT Carlton rich MD [facility] CPT-02429 Level 3 Est. Patient 18:16:00 PUMP ASSEMBLER Blaine HERNANDEZ [facility] CPT-38622 Level 3 Est. Patient 09:45:49 PUMP ASSEMBLER Carlton rich MD [facility] CPT-44429 Level 3 Est. Patient 13:19:20 CDT Carlton rich MD [facility] CPT-97819 Level 3 Est. Patient 13:06:43 CDT Ridge tam DO [facility] CPT-21296 Level 3 Est. Patient 10:03:07 CDT Perez Mora MD [facility] CPT-01927 Level 3 Est. Patient 19:50:35 PUMP ASSEMBLER Carlton rich MD [facility] CPT-49357 Level 4 Est. Patient 18:05:01 PUMP ASSEMBLER Carlton rich MD [facility] CPT-86727 Level 3 Est. Patient 10:45:55 PUMP ASSEMBLER Hugo Restrepo MD [facility] CPT-98118 Level 3 Est. Patient 14:12:49 CDT Griffin HERNANDEZ [facility] CPT-15328 Level 3 Est. Patient 17:37:24 CDT Carlton rich MD [facility] CPT-03523 Level 3 Est. Patient 16:51:54 CDT Carlton rich MD [facility] CPT-03672 Level 3 Est. Patient 12:18:11 CDT Hugo Restrepo MD [facility] CPT-92998 Level 3 Est. Patient 11:30:25 CDT Marcy crisostomo MD PhD [facility] CPT-46135 Level 3 Est. Patient 12:00:47 PUMP ASSEMBLER Carlton rich MD [facility] CPT-11605 Level 3 Est. Patient 16:31:06 PUMP ASSEMBLER Carlton rich MD [facility] CPT-51391 Level 3 Est. Patient 16:23:24 PUMP ASSEMBLER Ridge tam DO [facility] CPT-90043 Level 3 Est. Patient 12:34:12 CDT Carlton rich MD [facility] CPT-97333 Level 2 Est. Patient 15:43:33 CDT Robi armstrong MD [facility] CPT-95111 Level 4 Est. Patient 14:04:44 CDT Carlton rich MD [facility] CPT-55288 Level 3 Est. Patient 05:47:59 CDT Ridge tam [facility] CPT-09405 Level 3 Est. Patient 13:12:53 PUMP ASSEMBLER Carlton rich MD [facility] CPT-78172 Level 3 Est. Patient 14:26:53 CDT Hugo Restrepo MD [facility] Procedures Code Procedure Name Date Entry Date Standard Desc ription CPT-000 Give Appropriate Flu Vaccine 14:14:31 CDT 2 CPT-J1040 Depo Medrol 80 mg (Methyl Prednisolone A cetate) 10:42:44 CDT CPT-J1100 Decadron 8mg (Dexamethasone) 10:42:44 CDT 2 CPT-J0696 Rocephin 1gm Inj Solr 14:32:13 CDT CPT-J1020 Depo Medrol 60 mg (Methyl Prednisolone A cetate) 14:32:13 CDT CPT-J1100 Decadron 6mg (Dexamethasone) 14:32:13 CDT 2 CPT-08583 Hip bilat min 2V w AP pelvis 13:16:20 CDT 2 CPT-72288 Pelvis only 13:07:33 CDT CPT-97146 Spec Collection and Handling Fee 11:25:12 C DT CPT-30037 Fluzone Quadrivalent Intramuscular Suspe nsion 0.5 ML 14:31:55 CDT CPT-66896 Abx/Therapy Injection 13:28:47 PUMP ASSEMBLER CPT-J2930 Solu Medrol 125 mg (Methyl Prednisolone Sodium Succinate) 12:00:47 PUMP ASSEMBLER CPT-91682 Venipuncture Draw Fee 11:33:31 CDT CPT-64416 EKG Trac and Interp 11:21:09 CDT CPT-21136 Chest 2V Frontal and Lat 11:21:09 CDT 12/15 CPT-39451 Venipuncture Draw Fee 08:02:34 CDT CPT-18496 Chest 2V Frontal and Lat 05:47:59 CDT 06/05
--- OUTSIDE RECORDS SUMMARY | 2019-10-08 09:06 | XMS REPORT | Clinical Summary ---
Author Author Caitlin, Juliana Martinez Organization [facility] Address Unknown Phone Unavailable Allergies, Adverse [...] WITH MILD BRONCHOSPASM ICD-466.0 Inactive Marcy De LaR osa MD PhD DYSPNEA ICD-786.05 Inactive Marcy De [...] Hugo Ochoa MD Sinusitis ICD-473.9 Inactive Hugo eRstrepo MD Bronchitis ICD-490 Inactive Hugo Restrepo MD 201 10/02/29 URI ICD-465.9 Inactive Ridge Bess DO Medication List Medication Instructions Start Date Stop Date Generic Name NDC Status Provider Patient Instruction ELMIRON 100 MG ORAL CAPSULE 2 capsules in the morning and 1 capsule at night PENTOSAN POLYSULFATE SODIUM [id number] Active Cinthia H art [employer] CHIEF Active CYMBALTA 30 MG ORAL CAPSULE DELAYED RELEASE PARTICLES 1 cap by mouth daily for depression DULOXETINE HCL 48334708574 No Longer Active Carlton Hu MD Active CYMBALTA 60 MG ORAL CAPSULE DELAYED RELEASE PARTICLES 1 cap by mouth daily for mood and pain DULOXETINE HCL 77626428222 Active Carlton Hu MD Active TUSSIONEX PENNKINETIC ER 10-8 MG/5ML ORAL SUSPENSION E XTENDED RELEASE 5ml po q12hr PRN Cough HYDROCOD POLST-CHLORPHEN POLST 39660818045 Active 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 PREDNISONE 20 MG ORAL TABLET Take 2 tabs day 1 and 2 and 1 t ab days 3 and 4 PREDNISONE 46806181849 No Longer Active 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 DOXYCYCLINE HYCLATE 100 MG ORAL CAPSULE 1 cap by mouth twice latasha ly DOXYCYCLINE HYCLATE 61425819894 No Longer Active 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 TOPAMAX 100 MG ORAL TABLET Take 1 tablet po bid TOPIRAMATE 09788690784 No Longer Active 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 TUSSIONEX PENNKINETIC ER 10-8 MG/5ML ORAL SUSPENSION E XTENDED RELEASE 5ml po q12hr PRN Cough HYDROCOD POLST-CHLORPHEN POLST 5 9060057074 No Longer Active 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 AUGMENTIN 875-125 MG ORAL TABLET 1 po BID x 10 days 18/04/16 AMOXICILLIN-POT CLAVULANATE 65427951258 No Longer Active 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 PREDNISONE 50 MG ORAL TABLET Take 50 mg dialy for 6 day s 7 PREDNISONE 70069774837 No Longer Active 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 TUSSIONEX PENNKINETIC ER 10-8 MG/5ML ORAL SUSPENSION E XTENDED RELEASE 5ml po q12hr PRN Cough HYDROCOD POLST-CHLORPHEN POLST 5 5877711310 No Longer Active Cherelle Torres RN Active PREDNISONE 20 MG ORAL TABLET two tabs by mouth today, then one tab by mouth days two and three and four PREDNISONE 91996024511 No Lo nger Active Cherelle Torres RN Active AZITHROMYCIN 250 MG ORAL TABLET 2 po qd x 1 day, then 1 po q d x 4 days AZITHROMYCIN 16486156554 No Longer Active Ridge Bess DO Active PREDNISONE 20 MG ORAL TABLET 2 po qd x 5 days P REDNISONE 99663639365 No Longer Active Perez Mora MD Active PROAIR HFA 108 (90 BASE) MCG/ACT INHALATION AEROSOL SO LUTION 2 puffs four times a day as needed ALBUTEROL SULFATE 26940427272 No Long er Active Becky Cuellar RMA Active ASPIRIN 81 MG ORAL TABLET 1 po qd ASPIRIN 98375426320 Active Carlton Hu MD Active PREDNISONE 20 MG ORAL TABLET 1 tab twice daily for 3 d ay, then one daily for three days PREDNISONE 65451524378 No Longer Active Carlton Hu MD Active AUGMENTIN 875-125 MG ORAL TABLET 1 po BID x 10 days 16/03/22 AMOXICILLIN-POT CLAVULANATE 57530974723 No Longer Active Elise Garcia APRN Active TERBINAFINE HCL 250 MG ORAL TABLET 1 qDay for nail fungus 7 TERBINAFINE HCL 51854493065 No Longer Active Carlton Hu MD A ctive AMOXICILLIN 500 MG ORAL CAPSULE 1 cap by mouth three times a day AMOXICILLIN 80969985777 No Longer Active Carlton Hu MD Active ELMIRON 100 MG ORAL CAPSULE 2 tablets in the am and 1 tablet at hs PENTOSAN POLYSULFATE SODIUM 07679783460 No Longer Active Robert Hu MD Active MUCINEX D 60-600 MG ORAL TABLET EXTENDED RELEASE 12 HOUR 1 t ab po q am PSEUDOEPHEDRINE-GUAIFENESIN 33135461590 No Longer Act nael Carlton Hu MD Active MUCINEX DM MAXIMUM STRENGTH 60-1200 MG ORAL TABLET EXT ENDED RELEASE 12 HOUR 1 tab po q am DEXTROMETHORPHAN-GUAIFENESIN 68719534915 No Longer Active Carlton Hu MD Active TUSSIONEX PENNKINETIC ER 10-8 MG/5ML ORAL SUSPENSION E XTENDED RELEASE 5ml po q12hr PRN Cough HYDROCOD POLST-CHLORPHEN POLST 5 4319297493 No Longer Active Carlton Hu MD Active POTASSIUM CHLORIDE ER 20 MEQ ORAL TABLET EXTENDED RELE ASE Take 1 by mouth 4 times daily for 7 days POTASSIUM CHLORIDE 96282295916 No Longer Active Carlton Hu MD Active ZITHROMAX 250 MG ORAL TABLET 2 po today, then 1 po q days 2-5 20 14/09/04 AZITHROMYCIN 83643965410 No Longer Active Elise Garcia APRN Active TUSSIONEX PENNKINETIC ER 10-8 MG/5ML ORAL SUSPENSION E XTENDED RELEASE 5 ml twice a day as needed for cough HYDROCOD POLST-CHLORPH EN POLST 87981278448 No Longer Active Elise Garcia APRN Active MONTELUKAST SODIUM 10 MG ORAL TABLET 1 po daily for Allergy MONTELUKAST SODIUM 71090997246 Active Carlton Hu MD Ac tive TUSSIONEX PENNKINETIC ER 10-8 MG/5ML ORAL SUSPENSION E XTENDED RELEASE 5ml po q12hr PRN Cough HYDROCOD POLST-CHLORPHEN POLST 5 4606406098 No Longer Active Hugo Restrepo MD Active GABAPENTIN 100 MG ORAL CAPSULE 1 po BID for fibromyalgia GABAPENTIN 27765396126 Active ALFREDO Holly Active LYRICA 100 MG ORAL CAPSULE Take 1 tab po BID for fibromyalgia 20 11/08/21 PREGABALIN 69928520200 No Longer Active Elise Garcia APRN A ctive PREDNISONE 20 MG ORAL TABLET 2 tabs daily for 3 days, 1 tab daily for 3 days, 1/2 tab daily for 2 days PREDNISONE 61244691790 No Longer Active Diya De Guzman APRN Active TUSSIONEX PENNKINETIC ER 10-8 MG/5ML ORAL SUSPENSION E XTENDED RELEASE 5 mL PO q 12 hrs PRN cough HYDROCOD POLST-CHLORPHEN POLST 771851 41543 No Longer Active Jiriley De Guzman APRN Active FLUTICASONE PROPIONATE 50 MCG/ACT NASAL SUSPENSION 2 s prays each nostril daily until bottle is empty FLUTICASONE PROPIONATE 318329666 99 No Longer Active Diya De Guzman APRN Active ASMANEX 60 METERED DOSES 220 MCG/INH INHALATION AEROSO L POWDER BREATH ACTIVATED 1 puff bid with rinse after MOMETASONE FUROATE 6661753 4102 No Longer Active Diya De Guzman APRN Active ZITHROMAX Z-REYNA 250 MG ORAL TABLET 2 today, then 1 daily for 4 d ays AZITHROMYCIN 05301307603 No Longer Active Elise Garcia APRN Active TUSSIONEX PENNKINETIC ER 10-8 MG/5ML ORAL SUSPENSION E XTENDED RELEASE 5ml po q12hr PRN Cough HYDROCOD POLST-CHLORPHEN POLST 5 3802708884 No Longer Active Elise Garcia APRN Active PREDNISONE 20 MG ORAL TABLET 2 tabs daily for 3 days, 1 tab daily for 3 days, 1/2 tab daily for 2 days PREDNISONE 71335727029 No Longer Active Diya De Guzman APRN Active AMOXICILLIN 500 MG ORAL CAPSULE 2 po BID x 10 days 201 09/29/08 AMOXICILLIN 36031954968 No Longer Active Diya De Guzman APRN Act nael SINGULAIR 10 MG ORAL TABLET 1 po qday for allergies 20 14/01/12 MONTELUKAST SODIUM 69158376122 No Longer Active Carlton Hu MD Active LEVAQUIN 500 MG ORAL TABLET 1 tablet by mouth daily 20 13/09/24 LEVOFLOXACIN 55573292367 No Longer Active Carlton Hu MD Acti ve FLUTICASONE PROPIONATE 50 MCG/ACT NASAL SUSPENSION 2 s prays each nostril daily for 2 weeks, then 1 spray each nostril daily. FLUTICASONE PROPIONATE 74002169974 Active Carlton Hu MD Active ZITHROMAX 250 MG ORAL TABLET 2 po today, then 1 po q days 2-5 20 13/08/10 AZITHROMYCIN 71884906347 No Longer Active Elise Garcia APRN Active XANAX 0.5 MG ORAL TABLET one tablet by mouth daily prn anxiety 2015 ALPRAZOLAM 36420645115 Active ALFREDO Holly Active CEFDINIR 300 MG ORAL CAPSULE 1 po BID x 10 days CEFDINIR 08322759477 No Longer Active Carlton Hu MD Active ZOCOR 40 MG ORAL TABLET 1 tab by mouth daily SI MVASTATIN 70427911383 No Longer Active Carlton Hu MD Active CYCLOBENZAPRINE HCL 10 MG ORAL TABLET 1 tablet by mouth BID prn had pain CYCLOBENZAPRINE HCL 22926665871 No Longer Active Jayden Hu MD Active LEVOFLOXACIN 500 MG ORAL TABLET 1 tab PO daily x 10 days LEVOFLOXACIN 84251449773 No Longer Active Carlton Hu MD Acti ve PREDNISONE 20 MG ORAL TABLET 3 tab PO qd x 2d, 2 tab P O qd x 2d, 1 tab PO qd x 2d, 1/2 tab PO qd x 2d PREDNISONE 39650269848 No Lo nger Active Carlton Hu MD Active FLUTICASONE PROPIONATE 50 MCG/ACT NASAL SUSPENSION 1 t o 2 sprays each nostril daily FLUTICASONE PROPIONATE 44739706863 No Longer Ac tive Blaine HERNANDEZ Active CHERATUSSIN AC 100-10 MG/5ML ORAL SYRUP 1 tsp by mouth every 4 hours as needed for cough GUAIFENESIN-CODEINE 51722444026 No Longe r Active Blaine HERNANDEZ Active PROMETHAZINE-CODEINE 6.25-10 MG/5ML ORAL SYRUP 1 tsp b y mouth every 6 hours if needed for cough PROMETHAZINE-CODEINE 01787457538 No Longer Active Blaine HERNANDEZ Active CHERATUSSIN AC 100-10 MG/5ML ORAL SYRUP 1 tsp by mouth every 4 hours as needed for cough GUAIFENESIN-CODEINE 75798490462 No Longe r Active Blaine HERNANDEZ Active ZITHROMAX Z-REYNA 250 MG ORAL TABLET 2 today, then 1 daily for 4 d ays AZITHROMYCIN 81518014262 No Longer Active Columba Raida Act nael ZITHROMAX 250 MG ORAL TABLET 2 po today, then 1 po q days 2-5 20 14/03/21 AZITHROMYCIN 19688454504 No Longer Active Carlton Hu MD Active ZITHROMAX Z-REYNA 250 MG ORAL TABLET 2 today, then 1 daily for 4 d ays AZITHROMYCIN 03108696328 No Longer Active Columba Raida Act nael AUGMENTIN 875-125 MG ORAL TABLET 1 po BID x 10 days 13/01/20 AMOXICILLIN-POT CLAVULANATE 51149260975 No Longer Active Diya De Guzman APRN Active ZITHROMAX 250 MG ORAL TABLET 2 po today, then 1 po q days 2-5 20 12/08/14 AZITHROMYCIN 14267923728 No Longer Active Carlton Hu MD Active TRAMADOL HCL 50 MG ORAL TABLET 1 po tid with ES Tylenol TRAMADOL HCL 25988798058 Active ALFREDO Holly Active PREMARIN 0.625 MG ORAL TABLET TAKE 1 TAB BY MOUTH DAILY ESTROGENS CONJUGATED 01049801339 No Longer Active Ridge Bess DO A ctive CYMBALTA 30 MG ORAL CAPSULE DELAYED RELEASE PARTICLES 1 cap by mouth daily DULOXETINE HCL 76619685953 No Longer Active Ridge tam DO Active AMOXICILLIN 500 MG ORAL CAPSULE 1 tab by mouth 3 times daily x 10 days AMOXICILLIN 36821260846 No Longer Active Carlton bustamante MD Active AMOXICILLIN 500 MG ORAL CAPSULE 1 tab by mouth 3 times daily x 10 days AMOXICILLIN 23341576273 No Longer Active Carlton bustamante MD Active PROMETHAZINE-CODEINE 6.25-10 MG/5ML ORAL SYRUP 1 tsp b y mouth every 8 hours prn cough PROMETHAZINE-CODEINE 12679071388 No Longer Acti ve Carlton Hu MD Active MEDROL 4 MG ORAL TABLET THERAPY PACK 6 pills x 1 day, then 5 pills x 1 day then 4 pills x 1 day, then 3 pills x 1 day, then 2 pills x 1 day, then 1 pill x 1 day, then stop METHYLPREDNISOLONE 79810384655 No Long er Active Perez Mora MD Active AZITHROMYCIN 250 MG ORAL TABLET 2 po qd x 1 day, then 1 po q d x 4 days AZITHROMYCIN 63712702706 No Longer Active Perez Ambriz MD Active SYMBICORT 160-4.5 MCG/ACT INHALATION AEROSOL 2 puffs bid wit h rinse after BUDESONIDE-FORMOTEROL FUMARATE 79921800965 N o Longer Active Perez Mora MD Active LYRICA 75 MG ORAL CAPSULE TAKE 1 CAPSULE BY MOUTH TWICE DAILY PREGABALIN 50918036160 No Longer Active Carlton Hu MD Acti ve TOPAMAX 25 MG ORAL TABLET 1 qHS x 1 week, then 1 BID x 1 week, then 1 qAM and 2 qHS x 1 week, then 2 BID (migraine prevention) T OPIRAMATE 14471383130 No Longer Active Jerica FUENTES Active TOPAMAX 50 MG ORAL TABLET take 1 tab po BID for migraines. 07/02 TOPIRAMATE 70900058043 No Longer Active Jerica FUENTES Active TRIAMCINOLONE ACETONIDE 0.1 % EXTERNAL CREAM apply three roger es daily prn rash TRIAMCINOLONE ACETONIDE 69377912388 No Longer Active Carlton Hu MD Active PAXIL 40 MG ORAL TABLET take 1 tab po qday for depression 0 PAROXETINE HCL 78326394364 Active Carlton Hu MD Active CHERATUSSIN AC 100-10 MG/5ML ORAL SYRUP 5ml po q6hr PRN Cough 20 13/04/14 GUAIFENESIN-CODEINE 82992280982 No Longer Active Carlton Hu MD Active MEDROL 4 MG ORAL TABLET THERAPY PACK 6 tabs on day 1, 5 tabs on day 2, 4 tabs on day 3, 3 tabs on day 4, 2 tabs on day 5, 1 tab on day 6 2013 METHYLPREDNISOLONE 59929431228 No Longer Active Perez Mora MD Active AZITHROMYCIN 250 MG ORAL TABLET 2 po qd x 1 day, then 1 po q d x 4 days AZITHROMYCIN 23402428579 No Longer Active Perez Ambriz MD Active PROPRANOLOL HCL 60 MG ORAL TABLET 1 PO Q D PROPRANOLOL HCL 97805171415 No Longer Active Perez Mora MD Activ e CHERATUSSIN AC 100-10 MG/5ML ORAL SYRUP take one tsp po Q 6h ours prn cough GUAIFENESIN-CODEINE 45420754526 No Longer Active Zia Mora MD Active AUGMENTIN 875-125 MG ORAL TABLET 1 tab by mouth twice daily with food AMOXICILLIN-POT CLAVULANATE 32346759996 No Longer Act nael Perez Mora MD Active CHERATUSSIN AC 100-10 MG/5ML ORAL SYRUP 1 tsp by mouth every 4 hours as needed for cough GUAIFENESIN-CODEINE 80299423666 No Longe r Active Hugo Restrepo MD Active ACETAMINOPHEN-CODEINE #3 300-30 MG ORAL TABLET 1 PO Q 4-6 HRS [place] N [place] ACETAMINOPHEN-CODEINE 72588357686 No Longer Active Hugo Restrepo MD Active LEVAQUIN 500 MG ORAL TABLET take one po QD LEVO FLOXACIN 22735477809 No Longer Active Griffin HERNANDEZ Active PREDNISONE 20 MG ORAL TABLET Take 3 tabs daily for 3 d ays, 2 tabs daily for 3 days, 1 tab daily for 3 days, 1/2 tab daily for 3 days 11/07 PREDNISONE 04936322083 No Longer Active Carlton Hu MD Acti ve AVELOX 400 MG ORAL TABLET 1 tab by mouth daily MOXIFLOXACIN HCL 19677668827 No Longer Active Carlton Hu MD Active CHERATUSSIN AC 100-10 MG/5ML ORAL SYRUP 1 tsp by mouth every 4 hours as needed for cough GUAIFENESIN-CODEINE 13369094140 No Longe r Active Hugo Restrepo MD Active AVELOX 400 MG ORAL TABLET 1 tab by mouth daily MOXIFLOXACIN HCL 32714827340 No Longer Active Marcy De La Rosa MD PhD Active TERBINAFINE HCL 250 MG ORAL TABLET 1 qDay T ERBINAFINE HCL 88529632325 No Longer Active Marcy De La Rosa MD PhD Active CHERATUSSIN AC 100-10 MG/5ML ORAL SYRUP 1 tsp by mouth every 4 hours as needed for cough GUAIFENESIN-CODEINE 68081454592 No Longe r Active Marcy De La Rosa MD PhD Active AVELOX 400 MG ORAL TABLET 1 tab by mouth daily MOXIFLOXACIN HCL 24257988946 No Longer Active Marcy De La Rosa MD PhD Active HYDROCODONE-ACETAMINOPHEN 5-325 MG ORAL TABLET 1 po q 6hr PRN co ugh HYDROCODONE-ACETAMINOPHEN 93335396638 No Longer Active Marcy De La Rosa MD PhD Active PREDNISONE 20 MG ORAL TABLET 2 tabs daily for 3 days, 1 tab daily for 3 days, 1/2 tab daily for 2 days PREDNISONE 97174131656 No Longer Active Carlton Hu MD Active CEFDINIR 300 MG ORAL CAPSULE by mouth twice a day 2011 CEFDINIR 59064430046 No Longer Active Carlton Hu MD Acti ve HYDROCHLOROTHIAZIDE 25 MG ORAL TABLET 1 TAB PO DAILY HYDROCHLOROTHIAZIDE 79261902818 Active Carlton Hu MD A ctive ACETAMINOPHEN-CODEINE #3 300-30 MG ORAL TABLET 1 tablet po q 4-6 hrs prn pain ACETAMINOPHEN-CODEINE 36269628030 No Longer Active Ridge Bess DO Active ZITHROMAX 250 MG ORAL TABLET 2 po today, then 1 po q days 2-5 20 03/07/07 AZITHROMYCIN 33657030544 No Longer Active Carlton Hu MD Active CHERATUSSIN AC 100-10 MG/5ML ORAL SYRUP take 1 tsp po q4-6 h ours prn cough GUAIFENESIN-CODEINE 45350264200 No Longer Active Jayden Hu MD Active ACETAMINOPHEN-CODEINE #3 300-30 MG ORAL TABLET 1 PO Q 4-6 HR PRN PAIN ACETAMINOPHEN-CODEINE 49471262212 No Longer Active Da raimundo Hu MD Active LORTAB 7.5-500 MG/15ML ORAL ELIXIR 7.5 ml po q 4 hour prn cough HYDROCODONE-ACETAMINOPHEN 57844627654 No Longer Active Carlton Hu MD Active PREDNISONE 20 MG ORAL TABLET 1 po bid 3 days, then 1 po q day 3 days PREDNISONE 74685190261 No Longer Active Carlton Hu MD Active CEFDINIR 300 MG ORAL CAPSULE by mouth twice a day 2011 CEFDINIR 07734920626 No Longer Active Carlton Hu MD Acti ve CEFDINIR 300 MG ORAL CAPSULE by mouth twice a day 2010 CEFDINIR 48483058670 No Longer Active Carlton Hu MD Acti ve CEFDINIR 300 MG ORAL CAPSULE by mouth twice a day 2010 CEFDINIR 86202661778 No Longer Active Carlton Hu MD Acti ve TESSALON PERLES 100 MG ORAL CAPSULE 1 tablet by mouth 3 times daily as needed for cough BENZONATATE 01930318830 No Longer Active Carlton Hu MD Active CEFDINIR 300 MG ORAL CAPSULE by mouth twice a day 2010 CEFDINIR 89151976718 No Longer Active Carlton Hu MD Acti ve ZITHROMAX Z-REYNA 250 MG ORAL TABLET 2 today, then 1 daily for 4 d ays AZITHROMYCIN 83262056746 No Longer Active Hugo Restrepo MD Active TESSALON PERLES 100 MG ORAL CAPSULE 1 tablet by mouth 3 times daily as needed for cough TESSALBARRON PERLES 100 MG ORAL CAPSULE 13860 7 BENZONATATE Inactive PREDNISONE 20 MG ORAL TABLET 1 po bid 3 days, then 1 po q day 3 days PREDNISONE 20 MG ORAL TABLET 168685 PREDNISONE [place] ctive LORTAB 7.5-500 MG/15ML ORAL ELIXIR 7.5 [...] cough CHERATUSSIN AC 100-10 MG/5ML ORAL SYRUP 438204 GUAIFENESIN-CODEINE Inactive ACETAMINOPHEN-CODEINE #3 300-30 MG ORAL TABLET 1 tablet po q 4-6 hrs prn pain ACETAMINOPHEN-CODEINE #3 300-30 MG ORAL TABLET ACETAMINOPHEN-CODEINE Inactive HYDROCODONE-ACETAMINOPHEN 5-325 MG ORAL TABLET 1 po q 6hr PRN co ugh HYDROCODONE-ACETAMINOPHEN 5-325 MG ORAL TABLET 676166 HYDROCODONE-ACETAMINOPHEN Inactive AVELOX 400 MG ORAL TABLET 1 tab by mouth daily AVELOX 400 MG ORAL TABLET 729223 MOXIFLOXACIN HCL Inactive CHERATUSSIN AC 100-10 MG/5ML ORAL SYRUP 1 tsp by mouth every 4 hours as needed for cough CHERATUSSIN AC 100-10 MG/5ML ORAL SYRUP 9 70525 GUAIFENESIN-CODEINE Inactive TERBINAFINE HCL 250 MG ORAL TABLET 1 qDay 07/08 TERBINAFINE HCL 250 MG ORAL TABLET 131182 TERBINAFINE HCL Inactive CHERATUSSIN AC 100-10 MG/5ML ORAL SYRUP 1 tsp by mouth every 4 hours as needed for cough CHERATUSSIN AC 100-10 MG/5ML ORAL SYRUP 9 49728 GUAIFENESIN-CODEINE Inactive ACETAMINOPHEN-CODEINE #3 300-30 MG ORAL TABLET 1 PO Q 4-6 HRS [place] N PAIN ACETAMINOPHEN-CODEINE #3 300-30 MG ORAL TABLET ACETAMINOPHEN-CODEINE Inactive CHERATUSSIN AC 100-10 MG/5ML ORAL SYRUP 1 tsp by mouth every 4 hours as needed for cough CHERATUSSIN AC 100-10 MG/5ML ORAL SYRUP 9 79524 GUAIFENESIN-CODEINE Inactive AUGMENTIN 875-125 MG ORAL TABLET 1 tab by mouth twice daily with food AUGMENTIN 875-125 MG ORAL TABLET 983805 AMOXICIL MADELINE-POT CLAVULANATE Inactive CHERATUSSIN AC 100-10 MG/5ML ORAL SYRUP take one tsp po Q 6h ours prn cough CHERATUSSIN AC 100-10 MG/5ML ORAL SYRUP 513123 GUAIFENESIN-CODEINE Inactive PROPRANOLOL HCL 60 MG ORAL TABLET 1 PO Q D PROPRANOLOL HCL 60 MG ORAL TABLET 979305 PROPRANOLOL HCL Inactive TOPAMAX 50 MG ORAL TABLET take 1 tab po BID for migraines. 07/02 TOPAMAX 50 MG ORAL TABLET 139342 TOPIRAMATE Inacti ve TOPAMAX 25 MG ORAL TABLET 1 qHS x 1 week, then 1 BID x 1 week, then 1 qAM and 2 qHS x 1 week, then 2 BID (migraine prevention) TOPAMAX 25 MG ORAL TABLET 041213 TOPIRAMATE Inactive LYRICA 75 MG ORAL CAPSULE TAKE 1 CAPSULE BY MOUTH TWICE DAILY LYRICA 75 MG ORAL CAPSULE PREGABALIN Inactive SYMBICORT 160-4.5 MCG/ACT INHALATION AEROSOL 2 puffs bid wit h rinse after SYMBICORT 160-4.5 MCG/ACT INHALATION AEROSOL BUDESONIDE- FORMOTEROL FUMARATE Inactive PROMETHAZINE-CODEINE 6.25-10 MG/5ML ORAL SYRUP 1 tsp b y mouth every 8 hours prn cough PROMETHAZINE-CODEINE 6.25-10 MG/ 5ML ORAL SYRUP 918613 PROMETHAZINE-CODEINE Inactive CYMBALTA 30 MG ORAL CAPSULE DELAYED RELEASE PARTICLES 1 cap by mouth daily CYMBALTA 30 MG ORAL CAPSULE DELAYED RELE ASE PARTICLES 191933 DULOXETINE HCL Inactive PREMARIN 0.625 MG ORAL TABLET TAKE 1 TAB BY MOUTH DAILY PREMARIN 0.625 MG ORAL TABLET ESTROGENS CONJUGATED Inactive CHERATUSSIN AC 100-10 MG/5ML ORAL SYRUP 1 tsp by mouth every 4 hours as needed for cough CHERATUSSIN AC 100-10 MG/5ML ORAL SYRUP 9 40945 GUAIFENESIN-CODEINE Inactive PROMETHAZINE-CODEINE 6.25-10 MG/5ML ORAL SYRUP 1 tsp b y mouth every 6 hours if needed for cough PROMETHAZINE-CODEINE 6.25-10 MG/5ML ORAL SYRUP 931975 PROMETHAZINE-CODEINE Inactive CHERATUSSIN AC 100-10 MG/5ML ORAL SYRUP 1 tsp by mouth every 4 hours as needed for cough CHERATUSSIN AC 100-10 MG/5ML ORAL SYRUP 9 08181 GUAIFENESIN-CODEINE Inactive FLUTICASONE PROPIONATE 50 MCG/ACT NASAL SUSPENSION 1 t o 2 sprays each nostril daily FLUTICASONE PROPIONATE 50 MCG/AC T NASAL SUSPENSION 4825556 FLUTICASONE PROPIONATE Inactive PREDNISONE 20 MG ORAL TABLET 3 tab PO qd x 2d, 2 tab P O qd x 2d, 1 tab PO qd x 2d, 1/2 tab PO qd x 2d PREDNISONE 20 MG ORAL TAB LET 777278 PREDNISONE Inactive LEVOFLOXACIN 500 MG ORAL TABLET 1 tab PO daily x 10 days LEVOFLOXACIN 500 MG ORAL TABLET 939897 LEVOFLOXACIN Inactive CYCLOBENZAPRINE HCL 10 MG ORAL TABLET 1 tablet by mouth BID prn had pain CYCLOBENZAPRINE HCL 10 MG ORAL TABLET 325453 CYCLOBENZAPRINE HCL Inactive ZOCOR 40 MG ORAL [...] FLUTICASONE PROPIO EFE 50 MCG/ACT NASAL SUSPENSION 7193824 FLUTICASONE PROPIONATE Inactive TUSSIONEX PENNKINETIC ER 10-8 [...] three days PREDNISONE 20 MG ORAL TABLET 301727 PREDNIS ONE Inactive PROAIR HFA 108 (90 BASE) MCG/ACT INHALATION AEROSOL SO LUTION 2 puffs four times a day as needed PROAIR HFA 108 (90 B ASE) MCG/ACT INHALATION AEROSOL SOLUTION ALBUTEROL SULFATE Inactive PREDNISONE 20 MG ORAL TABLET two tabs by mouth today, then one tab by mouth days two and three and four PREDNISONE 20 MG ORAL TAB LET 213233 PREDNISONE Inactive TUSSIONEX PENNKINETIC ER 10-8 MG/5ML [...] bid 04/20 TOPAMAX 100 MG ORAL TABLET 153403 TOPIRAMATE Inactive CYMBALTA 30 MG ORAL CAPSULE DELAYED RELEASE PARTICLES 1 cap by mouth daily for depression CYMBALTA 30 MG ORAL CAPSULE DELAYED RELEASE PARTICLES 863116 DULOXETINE HCL Inactive ZITHROMAX Z-REYNA 250 MG ORAL TABLET 2 today, then 1 daily for 4 d ays ZITHROMAX Z-REYNA 250 MG ORAL TABLET 349378 AZITHROMYCIN Inactive CEFDINIR 300 MG ORAL CAPSULE by mouth twice a day 2010 CEFDINIR 300 MG ORAL CAPSULE 254580 CEFDINIR Inactive CEFDINIR 300 MG ORAL CAPSULE by mouth twice a day 2010 CEFDINIR 300 MG ORAL CAPSULE 252397 CEFDINIR Inactive CEFDINIR 300 MG ORAL CAPSULE by mouth twice a day 2010 CEFDINIR 300 MG ORAL CAPSULE 814783 CEFDINIR Inactive CEFDINIR 300 MG ORAL CAPSULE by mouth twice a day 2011 CEFDINIR 300 MG ORAL CAPSULE 842009 CEFDINIR Inactive ZITHROMAX 250 MG ORAL TABLET 2 po today, then 1 po q days 2-5 20 03/07/07 ZITHROMAX 250 MG ORAL TABLET 913166 AZITHROMYCIN [place] ctive CEFDINIR 300 MG ORAL CAPSULE by mouth twice a day 2011 CEFDINIR 300 MG ORAL CAPSULE 242440 CEFDINIR Inactive PREDNISONE 20 MG ORAL TABLET 2 tabs daily for 3 days, 1 tab daily for 3 days, 1/2 tab daily for 2 days PREDNISONE 20 MG ORAL T ABLET 694582 PREDNISONE Inactive AVELOX 400 MG ORAL TABLET 1 tab by mouth daily AVELOX 400 MG ORAL TABLET 053656 MOXIFLOXACIN HCL Inactive AVELOX 400 MG ORAL TABLET 1 tab by mouth daily AVELOX 400 MG ORAL TABLET 545116 MOXIFLOXACIN HCL Inactive PREDNISONE 20 MG ORAL TABLET Take 3 tabs daily for 3 d ays, 2 tabs daily for 3 days, 1 tab daily for 3 days, 1/2 tab daily for 3 days 11/07 PREDNISONE 20 MG ORAL TABLET 420041 PREDNISONE Inactive LEVAQUIN 500 MG ORAL TABLET take one po QD LEVAQUIN 500 MG ORAL TABLET 182789 LEVOFLOXACIN Inactive AZITHROMYCIN 250 MG ORAL TABLET 2 po qd x 1 day, then 1 po q d x 4 days AZITHROMYCIN 250 MG ORAL TABLET 397355 AZITHROMY GIOVANNI Inactive MEDROL 4 MG ORAL TABLET THERAPY PACK 6 tabs on day 1, 5 tabs on day 2, 4 tabs on day 3, 3 tabs on day 4, 2 tabs on day 5, 1 tab on day 6 2013 MEDROL 4 MG ORAL TABLET THERAPY PACK 172215 METHYLPREDNISOLONE [place] ctive CHERATUSSIN AC 100-10 MG/5ML ORAL SYRUP 5ml po q6hr PRN Cough 20 13/04/14 CHERATUSSIN AC 100-10 MG/5ML ORAL SYRUP 986975 GUAIFENE SIN-CODEINE Inactive TRIAMCINOLONE ACETONIDE 0.1 % EXTERNAL CREAM apply three roger es daily prn rash TRIAMCINOLONE ACETONIDE 0.1 % EXTERNAL CREAM 101 4314 TRIAMCINOLONE ACETONIDE Inactive AZITHROMYCIN 250 MG ORAL TABLET 2 po qd x 1 day, then 1 po q d x 4 days AZITHROMYCIN 250 MG ORAL TABLET 510530 AZITHROMY GIOVANNI Inactive MEDROL 4 MG ORAL TABLET THERAPY PACK 6 pills x 1 day, then 5 pills x 1 day then 4 pills x 1 day, then 3 pills x 1 day, then 2 pills x 1 day, then 1 pill x 1 day, then stop MEDROL 4 MG ORAL TABLET THERAPY PACK 710611 METHYLPREDNISOLONE Inactive AMOXICILLIN 500 MG ORAL CAPSULE 1 tab by mouth 3 times daily x 10 days AMOXICILLIN 500 MG ORAL CAPSULE 899884 AMOXICILL IN Inactive AMOXICILLIN 500 MG ORAL CAPSULE 1 tab by mouth 3 times daily x 10 days AMOXICILLIN 500 MG ORAL CAPSULE 382316 AMOXICILL IN Inactive ZITHROMAX 250 MG ORAL TABLET 2 po today, then 1 po q days 2-5 20 12/08/14 ZITHROMAX 250 MG ORAL TABLET 837419 AZITHROMYCIN [place] [facility] AUGMENTIN 875-125 MG ORAL TABLET 1 po BID x 10 days 20 13/01/20 AUGMENTIN 875-125 MG ORAL TABLET 528707 AMOXICILLIN-POT CLAVULANATE Inactive ZITHROMAX Z-REYNA 250 MG ORAL TABLET 2 today, then 1 daily for 4 d ays ZITHROMAX Z-REYNA 250 MG ORAL TABLET 839437 AZITHROMYCIN Inactive ZITHROMAX 250 MG ORAL TABLET 2 po today, then 1 po q days 2-5 20 14/03/21 ZITHROMAX 250 MG ORAL TABLET 018526 [facility]ITHROMYCIN [place] [facility] ZITHROMAX Z-REYNA 250 MG ORAL TABLET 2 today, then 1 daily for 4 d ays ZITHROMAX Z-REYNA 250 MG ORAL TABLET 533032 AZITHROMYCIN Inactive CEFDINIR 300 MG ORAL CAPSULE 1 po BID x 10 days 06/21 CEFDINIR 300 MG ORAL CAPSULE 261131 CEFDINIR Inactive ZITHROMAX 250 MG ORAL TABLET 2 po today, then 1 po q days 2-5 20 13/08/10 ZITHROMAX 250 MG ORAL TABLET 931371 AZITHROMYCIN [facility] [facility] LEVAQUIN 500 MG ORAL TABLET 1 tablet by mouth daily 20 13/09/24 LEVAQUIN 500 MG ORAL TABLET 19971102 LEVOFLOXACIN Inactive SINGULAIR 10 MG ORAL TABLET 1 po qday for allergies 20 14/01/12 SINGULAIR 10 MG ORAL TABLET 20010504 MONTELUKAST SODIUM Inactive AMOXICILLIN 500 MG ORAL CAPSULE 2 po BID x 10 days 201 09/29/08 AMOXICILLIN 500 MG ORAL CAPSULE 142271 AMOXICILLIN Inactive PREDNISONE 20 MG ORAL TABLET 2 tabs daily for 3 days, 1 tab daily for 3 days, 1/2 tab daily for 2 days PREDNISONE 20 MG ORAL T ABLET 856163 PREDNISONE Inactive ZITHROMAX Z-REYNA 250 MG ORAL TABLET 2 today, then 1 daily for 4 d ays ZITHROMAX Z-REYNA 250 MG ORAL TABLET 723765 AZITHROMYCIN Inactive PREDNISONE 20 MG ORAL TABLET 2 tabs daily for 3 days, 1 tab daily for 3 days, 1/2 tab daily for 2 days PREDNISONE 20 MG ORAL T ABLET 719523 PREDNISONE Inactive ZITHROMAX 250 MG ORAL TABLET 2 po today, then 1 po q days 2-5 20 14/09/04 ZITHROMAX 250 MG ORAL TABLET 757384 [place]ITHROMYCIN [place] [facility] AMOXICILLIN 500 MG ORAL CAPSULE 1 cap by mouth three times a day AMOXICILLIN 500 MG ORAL CAPSULE 591970 AMOXICILLIN Inactive TERBINAFINE HCL 250 MG ORAL TABLET 1 qDay for nail fungus 7 TERBINAFINE HCL 250 MG ORAL TABLET 682177 TERBINAFINE HCL Inact nael AUGMENTIN 875-125 MG ORAL TABLET 1 po BID x 10 days 16/03/22 AUGMENTIN 875-125 MG ORAL TABLET 094726 AMOXICILLIN-POT CLAVULANATE Inactive PREDNISONE 20 MG ORAL TABLET 2 po qd x 5 days PREDNISONE 20 MG ORAL TABLET 865481 PREDNISONE Inactive AZITHROMYCIN 250 MG ORAL TABLET 2 po qd x 1 day, then 1 po q d x 4 days AZITHROMYCIN 250 MG ORAL TABLET 538051 AZITHROMY GIOVANNI Inactive PREDNISONE 50 MG ORAL TABLET Take 50 mg dialy for 6 day s 7 PREDNISONE 50 MG ORAL TABLET 629620 PREDNISONE Inactive AUGMENTIN 875-125 MG ORAL TABLET 1 po BID x 10 days 20 18/04/16 AUGMENTIN 875-125 MG ORAL TABLET 289596 AMOXICILLIN-POT CLAVULANATE Inactive DOXYCYCLINE HYCLATE 100 MG ORAL CAPSULE 1 cap by mouth twice latasha ly DOXYCYCLINE HYCLATE 100 MG ORAL CAPSULE 6735637 DOXYCYCL INE HYCLATE Inactive PREDNISONE 20 MG ORAL TABLET Take 2 tabs day 1 and 2 and 1 t ab days 3 and 4 PREDNISONE 20 MG ORAL TABLET 164735 PREDNISONE Inactive Vital Signs Date Name Value [...] srinivasan blood pressure, diastolic 78 mm[Hg] BP srniivasan blood pressure, systolic, repeated by physician 128 [...] negative Encounters Code Encounter Date Provider Facility CPT-14821 Level 3 Est. Patient 16:53:54 CDT May haas MD [facility] CPT-42230 [id number] Vst-Est Level IV 08:41:[address] Carlton Hu MD [facility] CPT-49356 Level 3 Est. Patient 09:46:49 [facility] David lion [facility] CPT-28441 [id number] Vst-Est Level III 11:12:16 CDT Yanet Bess DO [facility] CPT-05194 Level 3 Est. Patient 11:34:49 [facility] Perez Mora MD [facility] CPT-17145 Level 4 Est. Patient 09:51:32 [facility] Carlton rich MD [facility] CPT-85041 Level 3 Est. Patient 10:26:00 [facility] Elise stephenson [facility] CPT-36000 Level 3 Est. Patient 13:35:41 [facility] Carlton rich MD [facility] CPT-78590 Level 3 Est. Patient 10:03:52 [facility] Carlton rich MD [facility] CPT-32729 Level 3 Est. Patient 12:17:50 CDT Hugo Restrepo MD [facility] CPT-05501 Level 3 Est. Patient 13:42:38 CDT Elise Are ll [employer]ERY [employer] [facility] CPT-41381 Level 3 Est. Patient 13:23:51 CDT Diya cobian [facility] CPT-20813 Level 3 Est. Patient 14:22:19 [facility] Astridgreer Mariana cobian [facility] CPT-58475 Level 3 Est. Patient 10:11:46 CDT Carlton rich MD [facility] CPT-31681 Level 3 Est. Patient 17:29:43 CDT Elise Are ll [facility] CPT-23924 Level 3 Est. Patient 11:58:06 CDT Elise Are ll [facility] CPT-76285 Level 4 Est. Patient 14:36:51 CDT Carlton rich MD [facility] CPT-07855 Level 3 Est. Patient 18:16:00 [facility] Blaine HERNANDEZ [facility] CPT-80870 Level 3 Est. Patient 09:45:49 [facility] Carlton rich MD [facility] CPT-28240 Level 3 Est. Patient 13:19:20 CDT Carlton rich MD [facility] CPT-99994 Level 3 Est. Patient 13:06:43 CDT Ridge tam DO [facility] CPT-88242 Level 3 Est. Patient 10:03:07 CDT Perez Mora MD [facility] CPT-74509 Level 3 Est. Patient 19:50:35 [facility] Carlton rich MD [facility] CPT-14496 Level 4 Est. Patient 18:05:01 [facility] Carlton rich MD [facility] CPT-82532 Level 3 Est. Patient 10:45:55 [facility] Hugo Restrepo MD [facility] CPT-72377 Level 3 Est. Patient 14:12:49 CDT Griffin HERNANDEZ [facility] CPT-53193 Level 3 Est. Patient 17:37:24 CDT Carlton rich MD [facility] CPT-27516 Level 3 Est. Patient 16:51:54 CDT Carlton rich MD [facility] CPT-23644 Level 3 Est. Patient 12:18:11 CDT Hugo Restrepo MD [facility] CPT-64051 Level 3 Est. Patient 11:30:25 CDT Marcy crisostomo MD PhD [facility] CPT-29844 Level 3 Est. Patient 12:00:47 [facility] Carlton rich MD [facility] CPT-35616 Level 3 Est. Patient 16:31:06 [facility] Carlton rich MD [facility] CPT-45417 Level 3 Est. Patient 16:23:24 [facility] Ridge tam DO [facility] CPT-86385 Level 3 Est. Patient 12:34:12 CDT Carlton rich MD [facility] CPT-75269 Level 2 Est. Patient 15:43:33 CDT Robi armstrong MD [facility] CPT-31655 Level 4 Est. Patient 14:04:44 CDT Carlton rich MD [facility] CPT-64385 Level 3 Est. Patient 05:47:59 CDT Ridge tam [facility] CPT-91475 Level 3 Est. Patient 13:12:53 [facility] Carlton rich MD [facility] CPT-48600 Level 3 Est. Patient 14:26:53 CDT Hugo Restrepo MD [facility] Procedures Code Procedure Name Date Entry Date Standard Desc ription CPT-000 Give Appropriate Flu Vaccine 14:14:31 CDT 2 CPT-J1040 Depo Medrol 80 mg (Methyl Prednisolone A cetate) 10:42:44 CDT CPT-J1100 Decadron 8mg (Dexamethasone) 10:42:44 CDT 2 CPT-J0696 Rocephin 1gm Inj Solr 14:32:13 CDT CPT-J1020 Depo Medrol 60 mg (Methyl Prednisolone A cetate) 14:32:13 CDT CPT-J1100 Decadron 6mg (Dexamethasone) 14:32:13 CDT 2 CPT-79742 Hip bilat min 2V w AP pelvis 13:16:20 CDT 2 CPT-15130 Pelvis only 13:07:33 CDT CPT-39799 Spec Collection and Handling Fee 11:25:12 C DT CPT-89548 Fluzone Quadrivalent Intramuscular Suspe nsion 0.5 ML 14:31:55 CDT CPT-81960 Abx/Therapy Injection 13:28:47 [facility] CPT-J2930 Solu Medrol 125 mg (Methyl Prednisolone Sodium Succinate) 12:00:47 [facility] CPT-97318 Venipuncture Draw Fee 11:33:31 CDT CPT-52279 EKG Trac and Interp 11:21:09 CDT CPT-56789 Chest 2V Frontal and Lat 11:21:09 CDT 12/15 CPT-39979 Venipuncture Draw Fee 08:02:34 CDT CPT-74213 Chest 2V Frontal and Lat 05:47:59 CDT 06/05
--- OUTSIDE RECORDS SUMMARY | 2019-10-08 09:07 | XMS REPORT | Clinical Summary ---
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 CYMBALTA 30 MG ORAL CAPSULE DELAYED RELEASE PARTICLES 1 cap by mouth daily for depression DULOXETINE HCL 87500543887 No Longer Active Carlton Hu MD Active CYMBALTA 60 MG ORAL CAPSULE DELAYED RELEASE PARTICLES 1 cap by mouth daily for mood and pain DULOXETINE HCL 74052529628 Active Carlton Hu MD Active TUSSIONEX PENNKINETIC ER 10-8 MG/5ML ORAL SUSPENSION E XTENDED RELEASE 5ml po q12hr PRN Cough HYDROCOD POLST-CHLORPHEN POLST 72850741172 Active David Marianne TELETYPIST Active PREDNISONE 20 MG ORAL TABLET Take 2 tabs day 1 and 2 and 1 t ab days 3 and 4 PREDNISONE 95100829179 No Longer Active David Marianne TELETYPIST Active DOXYCYCLINE HYCLATE 100 MG ORAL CAPSULE 1 cap by mouth twice latasha ly DOXYCYCLINE HYCLATE 77975446531 No Longer Active David Marianne TELETYPIST Active TOPAMAX 100 MG ORAL TABLET Take 1 tablet po bid TOPIRAMATE 22706791246 No Longer Active David Marianne TELETYPIST Active TUSSIONEX PENNKINETIC ER 10-8 MG/5ML ORAL SUSPENSION E XTENDED RELEASE 5ml po q12hr PRN Cough HYDROCOD POLST-CHLORPHEN POLST 5 8451991905 No Longer Active David Marianne TELETYPIST Active AUGMENTIN 875-125 MG ORAL TABLET 1 po BID x 10 days 18/04/16 AMOXICILLIN-POT CLAVULANATE 45688803322 No Longer Active David Marianne TELETYPIST Active PREDNISONE 50 MG ORAL TABLET Take 50 mg dialy for 6 day s 7 PREDNISONE 31071477534 No Longer Active David Marianne TELETYPIST Active TUSSIONEX PENNKINETIC ER 10-8 MG/5ML ORAL SUSPENSION E XTENDED RELEASE 5ml po q12hr PRN Cough HYDROCOD POLST-CHLORPHEN POLST 5 5982951532 No Longer Active Cherelle Torres RN Active PREDNISONE 20 MG ORAL TABLET two tabs by mouth today, then one tab by mouth days two and three and four PREDNISONE 76625960527 No Lo nger Active Cherelle Torres RN Active AZITHROMYCIN 250 MG ORAL TABLET 2 po qd x 1 day, then 1 po q d x 4 days AZITHROMYCIN 06449270393 No Longer Active Ridge Bess DO Active PREDNISONE 20 MG ORAL TABLET 2 po qd x 5 days P REDNISONE 59170278494 No Longer Active Perez Mora MD Active PROAIR HFA 108 (90 BASE) MCG/ACT INHALATION AEROSOL SO LUTION 2 puffs four times a day as needed ALBUTEROL SULFATE 85388352891 No Long er Active Becky Cuellar RMA Active ASPIRIN 81 MG ORAL TABLET 1 po qd ASPIRIN 90933187115 Active Carlton uH MD Active PREDNISONE 20 MG ORAL TABLET 1 tab twice daily for 3 d ay, then one daily for three days PREDNISONE 63581153797 No Longer Active Carlton Hu MD Active AUGMENTIN 875-125 MG ORAL TABLET 1 po BID x 10 days 16/03/22 AMOXICILLIN-POT CLAVULANATE 65872001435 No Longer Active Elise Garcia APRN Active TERBINAFINE HCL 250 MG ORAL TABLET 1 qDay for nail fungus 7 TERBINAFINE HCL 92031108250 No Longer Active Carlton Hu MD A ctive AMOXICILLIN 500 MG ORAL CAPSULE 1 cap by mouth three times a day AMOXICILLIN 90857200550 No Longer Active Carlton Hu MD Active ELMIRON 100 MG ORAL CAPSULE 2 tablets in the am and 1 tablet at hs PENTOSAN POLYSULFATE SODIUM 94823891140 No Longer Active Robert Hu MD Active MUCINEX D 60-600 MG ORAL TABLET EXTENDED RELEASE 12 HOUR 1 t ab po q am PSEUDOEPHEDRINE-GUAIFENESIN 13540221451 No Longer Act nael Carlton Hu MD Active MUCINEX DM MAXIMUM STRENGTH 60-1200 MG ORAL TABLET EXT ENDED RELEASE 12 HOUR 1 tab po q am DEXTROMETHORPHAN-GUAIFENESIN 37173421301 No Longer Active Carlton Hu MD Active TUSSIONEX PENNKINETIC ER 10-8 MG/5ML ORAL SUSPENSION E XTENDED RELEASE 5ml po q12hr PRN Cough HYDROCOD POLST-CHLORPHEN POLST 5 9303525411 No Longer Active Carlton Hu MD Active POTASSIUM CHLORIDE ER 20 MEQ ORAL TABLET EXTENDED RELE ASE Take 1 by mouth 4 times daily for 7 days POTASSIUM CHLORIDE 84015735518 No Longer Active Carlton Hu MD Active ZITHROMAX 250 MG ORAL TABLET 2 po today, then 1 po q days 2-5 20 14/09/04 AZITHROMYCIN 52933635779 No Longer Active Elise Garcia APRN Active TUSSIONEX PENNKINETIC ER 10-8 MG/5ML ORAL SUSPENSION E XTENDED RELEASE 5 ml twice a day as needed for cough HYDROCOD POLST-CHLORPH EN POLST 14465518082 No Longer Active Elise Garcia APRN Active MONTELUKAST SODIUM 10 MG ORAL TABLET 1 po daily for Allergy MONTELUKAST SODIUM 77148612815 Active Carlton Hu MD Ac tive TUSSIONEX PENNKINETIC ER 10-8 MG/5ML ORAL SUSPENSION E XTENDED RELEASE 5ml po q12hr PRN Cough HYDROCOD POLST-CHLORPHEN POLST 5 2046275758 No Longer Active Hugo Restrepo MD Active GABAPENTIN 100 MG ORAL CAPSULE 1 po BID for fibromyalgia GABAPENTIN 17837695679 Active ALFREDO Holly Active LYRICA 100 MG ORAL CAPSULE Take 1 tab po BID for fibromyalgia 20 11/08/21 PREGABALIN 95379142174 No Longer Active Elise Garcia APRN A ctive PREDNISONE 20 MG ORAL TABLET 2 tabs daily for 3 days, 1 tab daily for 3 days, 1/2 tab daily for 2 days PREDNISONE 63870067869 No Longer Active Diya De Guzman APRN Active TUSSIONEX PENNKINETIC ER 10-8 MG/5ML ORAL SUSPENSION E XTENDED RELEASE 5 mL PO q 12 hrs PRN cough HYDROCOD POLST-CHLORPHEN POLST 142613 40173 No Longer Active Jiriley De Guzman APRN Active FLUTICASONE PROPIONATE 50 MCG/ACT NASAL SUSPENSION 2 s prays each nostril daily until bottle is empty FLUTICASONE PROPIONATE 288031017 99 No Longer Active Diya De Guzman APRN Active ASMANEX 60 METERED DOSES 220 MCG/INH INHALATION AEROSO L POWDER BREATH ACTIVATED 1 puff bid with rinse after MOMETASONE FUROATE 5681237 4102 No Longer Active Diya De Guzman APRN Active ZITHROMAX Z-REYNA 250 MG ORAL TABLET 2 today, then 1 daily for 4 d ays AZITHROMYCIN 01871120818 No Longer Active Elise Garcia APRN Active TUSSIONEX PENNKINETIC ER 10-8 MG/5ML ORAL SUSPENSION E XTENDED RELEASE 5ml po q12hr PRN Cough HYDROCOD POLST-CHLORPHEN POLST 5 0207536440 No Longer Active Elise Garcia APRN Active PREDNISONE 20 MG ORAL TABLET 2 tabs daily for 3 days, 1 tab daily for 3 days, 1/2 tab daily for 2 days PREDNISONE 16141556532 No Longer Active Diya De Guzman APRN Active AMOXICILLIN 500 MG ORAL CAPSULE 2 po BID x 10 days 201 09/29/08 AMOXICILLIN 43643110440 No Longer Active Diya De Guzman APRN Act nael SINGULAIR 10 MG ORAL TABLET 1 po qday for allergies 20 14/01/12 MONTELUKAST SODIUM 14190237788 No Longer Active Carlton Hu MD Active LEVAQUIN 500 MG ORAL TABLET 1 tablet by mouth daily 20 13/09/24 LEVOFLOXACIN 88300302381 No Longer Active Carlton Hu MD Acti ve FLUTICASONE PROPIONATE 50 MCG/ACT NASAL SUSPENSION 2 s prays each nostril daily for 2 weeks, then 1 spray each nostril daily. FLUTICASONE PROPIONATE 23750540980 Active Carlton Hu MD Active ZITHROMAX 250 MG ORAL TABLET 2 po today, then 1 po q days 2-5 20 13/08/10 AZITHROMYCIN 73231335123 No Longer Active Elise Garcia APRN Active XANAX 0.5 MG ORAL TABLET one tablet by mouth daily prn anxiety 2015 ALPRAZOLAM 98861300105 Active ALFREDO Holly Active CEFDINIR 300 MG ORAL CAPSULE 1 po BID x 10 days CEFDINIR 75206896045 No Longer Active Carlton uH MD Active ZOCOR 40 MG ORAL TABLET 1 tab by mouth daily SI MVASTATIN 37212394470 No Longer Active Carlton Hu MD Active CYCLOBENZAPRINE HCL 10 MG ORAL TABLET 1 tablet by mouth BID prn had pain CYCLOBENZAPRINE HCL 32768217221 No Longer Active Jayden Hu MD Active LEVOFLOXACIN 500 MG ORAL TABLET 1 tab PO daily x 10 days LEVOFLOXACIN 01329724473 No Longer Active Carlton Hu MD Acti ve PREDNISONE 20 MG ORAL TABLET 3 tab PO qd x 2d, 2 tab P O qd x 2d, 1 tab PO qd x 2d, 1/2 tab PO qd x 2d PREDNISONE 97652962040 No Lo nger Active Carlton Hu MD Active FLUTICASONE PROPIONATE 50 MCG/ACT NASAL SUSPENSION 1 t o 2 sprays each nostril daily FLUTICASONE PROPIONATE 47264981681 No Longer Ac tive Blaine HERNANDEZ Active CHERATUSSIN AC 100-10 MG/5ML ORAL SYRUP 1 tsp by mouth every 4 hours as needed for cough GUAIFENESIN-CODEINE 61999804646 No Longe r Active Blaine HERNANDEZ Active PROMETHAZINE-CODEINE 6.25-10 MG/5ML ORAL SYRUP 1 tsp b y mouth every 6 hours if needed for cough PROMETHAZINE-CODEINE 44058970126 No Longer Active Blaine HERNANDEZ Active CHERATUSSIN AC 100-10 MG/5ML ORAL SYRUP 1 tsp by mouth every 4 hours as needed for cough GUAIFENESIN-CODEINE 85255272257 No Longe r Active Blaine HERNANDEZ Active ZITHROMAX Z-REYNA 250 MG ORAL TABLET 2 today, then 1 daily for 4 d ays AZITHROMYCIN 93516273522 No Longer Active Columba Raida Act nael ZITHROMAX 250 MG ORAL TABLET 2 po today, then 1 po q days 2-5 20 14/03/21 AZITHROMYCIN 96433204587 No Longer Active Carlton Hu MD Active ZITHROMAX Z-REYNA 250 MG ORAL TABLET 2 today, then 1 daily for 4 d ays AZITHROMYCIN 89754486684 No Longer Active Columba Raida Act nael AUGMENTIN 875-125 MG ORAL TABLET 1 po BID x 10 days 13/01/20 AMOXICILLIN-POT CLAVULANATE 86135292399 No Longer Active Diya De Guzman APRN Active ZITHROMAX 250 MG ORAL TABLET 2 po today, then 1 po q days 2-5 20 12/08/14 AZITHROMYCIN 37174385146 No Longer Active Carlton Hu MD Active TRAMADOL HCL 50 MG ORAL TABLET 1 po tid with ES Tylenol TRAMADOL HCL 83531642807 Active ALFREDO Holly Active PREMARIN 0.625 MG ORAL TABLET TAKE 1 TAB BY MOUTH DAILY ESTROGENS CONJUGATED 57845794864 No Longer Active Ridge Bess DO A ctive CYMBALTA 30 MG ORAL CAPSULE DELAYED RELEASE PARTICLES 1 cap by mouth daily DULOXETINE HCL 23983890583 No Longer Active Ridge tam DO Active AMOXICILLIN 500 MG ORAL CAPSULE 1 tab by mouth 3 times daily x 10 days AMOXICILLIN 97369051240 No Longer Active Carlton bustamante MD Active AMOXICILLIN 500 MG ORAL CAPSULE 1 tab by mouth 3 times daily x 10 days AMOXICILLIN 10713366748 No Longer Active Carlton bustamante MD Active PROMETHAZINE-CODEINE 6.25-10 MG/5ML ORAL SYRUP 1 tsp b y mouth every 8 hours prn cough PROMETHAZINE-CODEINE 64649898093 No Longer Acti ve Carlton Hu MD Active MEDROL 4 MG ORAL TABLET THERAPY PACK 6 pills x 1 day, then 5 pills x 1 day then 4 pills x 1 day, then 3 pills x 1 day, then 2 pills x 1 day, then 1 pill x 1 day, then stop METHYLPREDNISOLONE 27499353181 No Long er Active Perez Mora MD Active AZITHROMYCIN 250 MG ORAL TABLET 2 po qd x 1 day, then 1 po q d x 4 days AZITHROMYCIN 03585974862 No Longer Active Perez Ambriz MD Active SYMBICORT 160-4.5 MCG/ACT INHALATION AEROSOL 2 puffs bid wit h rinse after BUDESONIDE-FORMOTEROL FUMARATE 97049561438 N o Longer Active Perez Mora MD Active LYRICA 75 MG ORAL CAPSULE TAKE 1 CAPSULE BY MOUTH TWICE DAILY PREGABALIN 66408276979 No Longer Active Carlton Hu MD Acti ve TOPAMAX 25 MG ORAL TABLET 1 qHS x 1 week, then 1 BID x 1 week, then 1 qAM and 2 qHS x 1 week, then 2 BID (migraine prevention) T OPIRAMATE 17334054283 No Longer Active Jerica FUENTES Active TOPAMAX 50 MG ORAL TABLET take 1 tab po BID for migraines. 07/02 TOPIRAMATE 15376231482 No Longer Active Jerica FUENTES Active TRIAMCINOLONE ACETONIDE 0.1 % EXTERNAL CREAM apply three roger es daily prn rash TRIAMCINOLONE ACETONIDE 59373793107 No Longer Active Carlton Hu MD Active PAXIL 40 MG ORAL TABLET take 1 tab po qday for depression 0 PAROXETINE HCL 48607265798 Active Carlton Hu MD Active CHERATUSSIN AC 100-10 MG/5ML ORAL SYRUP 5ml po q6hr PRN Cough 20 13/04/14 GUAIFENESIN-CODEINE 50664208839 No Longer Active Carlton Hu MD Active MEDROL 4 MG ORAL TABLET THERAPY PACK 6 tabs on day 1, 5 tabs on day 2, 4 tabs on day 3, 3 tabs on day 4, 2 tabs on day 5, 1 tab on day 6 2013 METHYLPREDNISOLONE 67329967453 No Longer Active Perez Mora MD Active AZITHROMYCIN 250 MG ORAL TABLET 2 po qd x 1 day, then 1 po q d x 4 days AZITHROMYCIN 02511454220 No Longer Active Perez Ambriz MD Active PROPRANOLOL HCL 60 MG ORAL TABLET 1 PO Q D PROPRANOLOL HCL 38964554084 No Longer Active Perez Mora MD Activ e CHERATUSSIN AC 100-10 MG/5ML ORAL SYRUP take one tsp po Q 6h ours prn cough GUAIFENESIN-CODEINE 42128344013 No Longer Active Zia Mora MD Active AUGMENTIN 875-125 MG ORAL TABLET 1 tab by mouth twice daily with food AMOXICILLIN-POT CLAVULANATE 29232382115 No Longer Act nael Perez Mora MD Active CHERATUSSIN AC 100-10 MG/5ML ORAL SYRUP 1 tsp by mouth every 4 hours as needed for cough GUAIFENESIN-CODEINE 12415617069 No Longe r Active Hugo Restrepo MD Active ACETAMINOPHEN-CODEINE #3 300-30 MG ORAL TABLET 1 PO Q 4-6 HRS GA N PAIN ACETAMINOPHEN-CODEINE 96779491800 No Longer Active Hugo Restrepo MD Active LEVAQUIN 500 MG ORAL TABLET take one po QD LEVO FLOXACIN 33549800951 No Longer Active Griffin HERNANDEZ Active PREDNISONE 20 MG ORAL TABLET Take 3 tabs daily for 3 d ays, 2 tabs daily for 3 days, 1 tab daily for 3 days, 1/2 tab daily for 3 days 11/07 PREDNISONE 69962555656 No Longer Active Carlton Hu MD Acti ve AVELOX 400 MG ORAL TABLET 1 tab by mouth daily MOXIFLOXACIN HCL 66772883650 No Longer Active Carlton Hu MD Active CHERATUSSIN AC 100-10 MG/5ML ORAL SYRUP 1 tsp by mouth every 4 hours as needed for cough GUAIFENESIN-CODEINE 38100434793 No Longe r Active Hugo Restrepo MD Active AVELOX 400 MG ORAL TABLET 1 tab by mouth daily MOXIFLOXACIN HCL 90761953380 No Longer Active Marcy De La Rosa MD PhD Active TERBINAFINE HCL 250 MG ORAL TABLET 1 qDay T ERBINAFINE HCL 48274000333 No Longer Active Marcy De La Rosa MD PhD Active CHERATUSSIN AC 100-10 MG/5ML ORAL SYRUP 1 tsp by mouth every 4 hours as needed for cough GUAIFENESIN-CODEINE 80852543095 No Longe r Active Marcy De La Rosa MD PhD Active AVELOX 400 MG ORAL TABLET 1 tab by mouth daily MOXIFLOXACIN HCL 60734247651 No Longer Active Marcy De La Rosa MD PhD Active HYDROCODONE-ACETAMINOPHEN 5-325 MG ORAL TABLET 1 po q 6hr PRN co ugh HYDROCODONE-ACETAMINOPHEN 33094088684 No Longer Active Marcy De La Rosa MD PhD Active PREDNISONE 20 MG ORAL TABLET 2 tabs daily for 3 days, 1 tab daily for 3 days, 1/2 tab daily for 2 days PREDNISONE 46944906380 No Longer Active Carlton Hu MD Active CEFDINIR 300 MG ORAL CAPSULE by mouth twice a day 2011 CEFDINIR 59210607431 No Longer Active Carlton Hu MD Acti ve HYDROCHLOROTHIAZIDE 25 MG ORAL TABLET 1 TAB PO DAILY HYDROCHLOROTHIAZIDE 29865369590 Active Carlton Hu MD A ctive ACETAMINOPHEN-CODEINE #3 300-30 MG ORAL TABLET 1 tablet po q 4-6 hrs prn pain ACETAMINOPHEN-CODEINE 73614887091 No Longer Active Ridge Bess DO Active ZITHROMAX 250 MG ORAL TABLET 2 po today, then 1 po q days 2-5 20 03/07/07 AZITHROMYCIN 06657702365 No Longer Active Carlton Hu MD Active CHERATUSSIN AC 100-10 MG/5ML ORAL SYRUP take 1 tsp po q4-6 h ours prn cough GUAIFENESIN-CODEINE 48825486798 No Longer Active Jayden Hu MD Active ACETAMINOPHEN-CODEINE #3 300-30 MG ORAL TABLET 1 PO Q 4-6 HR PRN PAIN ACETAMINOPHEN-CODEINE 75659735188 No Longer Active Da raimundo Hu MD Active LORTAB 7.5-500 MG/15ML ORAL ELIXIR 7.5 ml po q 4 hour prn cough HYDROCODONE-ACETAMINOPHEN 04911033550 No Longer Active Carlton Hu MD Active PREDNISONE 20 MG ORAL TABLET 1 po bid 3 days, then 1 po q day 3 days PREDNISONE 03619754093 No Longer Active Carlton Hu MD Active CEFDINIR 300 MG ORAL CAPSULE by mouth twice a day 2011 CEFDINIR 33771845340 No Longer Active Carlton Hu MD Acti ve CEFDINIR 300 MG ORAL CAPSULE by mouth twice a day 2010 CEFDINIR 45332940959 No Longer Active Carlton Hu MD Acti ve CEFDINIR 300 MG ORAL CAPSULE by mouth twice a day 2010 CEFDINIR 82437051548 No Longer Active Carlton Hu MD Acti ve TESSALON PERLES 100 MG ORAL CAPSULE 1 tablet by mouth 3 times daily as needed for cough BENZONATATE 65176034905 No Longer Active Carlton Hu MD Active CEFDINIR 300 MG ORAL CAPSULE by mouth twice a day 2010 CEFDINIR 91034638651 No Longer Active Carlton Hu MD Acti ve ZITHROMAX Z-REYNA 250 MG ORAL TABLET 2 today, then 1 daily for 4 d ays AZITHROMYCIN 74685597673 No Longer Active Hugo Restrepo MD Active TESSALON PERLES 100 MG ORAL CAPSULE 1 tablet by mouth 3 times daily as needed for cough ROLFSALBARRON PERLES 100 MG ORAL CAPSULE 73162 7 BENZONATATE Inactive PREDNISONE 20 MG ORAL TABLET 1 po bid 3 days, then 1 po q day 3 days PREDNISONE 20 MG ORAL TABLET 427281 PREDNISONE Mccarley ctive LORTAB 7.5-500 MG/15ML ORAL ELIXIR 7.5 [...] cough CHERATUSSIN AC 100-10 MG/5ML ORAL SYRUP 161164 GUAIFENESIN-CODEINE Inactive ACETAMINOPHEN-CODEINE #3 300-30 MG ORAL TABLET 1 tablet po q 4-6 hrs prn pain ACETAMINOPHEN-CODEINE #3 300-30 MG ORAL TABLET ACETAMINOPHEN-CODEINE Inactive HYDROCODONE-ACETAMINOPHEN 5-325 MG ORAL TABLET 1 po q 6hr PRN co ugh HYDROCODONE-ACETAMINOPHEN 5-325 MG ORAL TABLET 835256 HYDROCODONE-ACETAMINOPHEN Inactive AVELOX 400 MG ORAL TABLET 1 tab by mouth daily AVELOX 400 MG ORAL TABLET 098156 MOXIFLOXACIN HCL Inactive CHERATUSSIN AC 100-10 MG/5ML ORAL SYRUP 1 tsp by mouth every 4 hours as needed for cough CHERATUSSIN AC 100-10 MG/5ML ORAL SYRUP 9 30623 GUAIFENESIN-CODEINE Inactive TERBINAFINE HCL 250 MG ORAL TABLET 1 qDay 07/08 TERBINAFINE HCL 250 MG ORAL TABLET 407196 TERBINAFINE HCL Inactive CHERATUSSIN AC 100-10 MG/5ML ORAL SYRUP 1 tsp by mouth every 4 hours as needed for cough CHERATUSSIN AC 100-10 MG/5ML ORAL SYRUP 9 44746 GUAIFENESIN-CODEINE Inactive ACETAMINOPHEN-CODEINE #3 300-30 MG ORAL TABLET 1 PO Q 4-6 HRS GA N PAIN ACETAMINOPHEN-CODEINE #3 300-30 MG ORAL TABLET ACETAMINOPHEN-CODEINE Inactive CHERATUSSIN AC 100-10 MG/5ML ORAL SYRUP 1 tsp by mouth every 4 hours as needed for cough CHERATUSSIN AC 100-10 MG/5ML ORAL SYRUP 9 31466 GUAIFENESIN-CODEINE Inactive AUGMENTIN 875-125 MG ORAL TABLET 1 tab by mouth twice daily with food AUGMENTIN 875-125 MG ORAL TABLET 047781 AMOXICIL MADELINE-POT CLAVULANATE Inactive CHERATUSSIN AC 100-10 MG/5ML ORAL SYRUP take one tsp po Q 6h ours prn cough CHERATUSSIN AC 100-10 MG/5ML ORAL SYRUP 389873 GUAIFENESIN-CODEINE Inactive PROPRANOLOL HCL 60 MG ORAL TABLET 1 PO Q D PROPRANOLOL HCL 60 MG ORAL TABLET 458320 PROPRANOLOL HCL Inactive TOPAMAX 50 MG ORAL TABLET take 1 tab po BID for migraines. 07/02 TOPAMAX 50 MG ORAL TABLET 540949 TOPIRAMATE Inacti ve TOPAMAX 25 MG ORAL TABLET 1 qHS x 1 week, then 1 BID x 1 week, then 1 qAM and 2 qHS x 1 week, then 2 BID (migraine prevention) TOPAMAX 25 MG ORAL TABLET 987647 TOPIRAMATE Inactive LYRICA 75 MG ORAL CAPSULE TAKE 1 CAPSULE BY MOUTH TWICE DAILY LYRICA 75 MG ORAL CAPSULE PREGABALIN Inactive SYMBICORT 160-4.5 MCG/ACT INHALATION AEROSOL 2 puffs bid wit h rinse after SYMBICORT 160-4.5 MCG/ACT INHALATION AEROSOL BUDESONIDE- FORMOTEROL FUMARATE Inactive PROMETHAZINE-CODEINE 6.25-10 MG/5ML ORAL SYRUP 1 tsp b y mouth every 8 hours prn cough PROMETHAZINE-CODEINE 6.25-10 MG/ 5ML ORAL SYRUP 798462 PROMETHAZINE-CODEINE Inactive CYMBALTA 30 MG ORAL CAPSULE DELAYED RELEASE PARTICLES 1 cap by mouth daily CYMBALTA 30 MG ORAL CAPSULE DELAYED RELE ASE PARTICLES 365872 DULOXETINE HCL Inactive PREMARIN 0.625 MG ORAL TABLET TAKE 1 TAB BY MOUTH DAILY PREMARIN 0.625 MG ORAL TABLET ESTROGENS CONJUGATED Inactive CHERATUSSIN AC 100-10 MG/5ML ORAL SYRUP 1 tsp by mouth every 4 hours as needed for cough CHERATUSSIN AC 100-10 MG/5ML ORAL SYRUP 9 24946 GUAIFENESIN-CODEINE Inactive PROMETHAZINE-CODEINE 6.25-10 MG/5ML ORAL SYRUP 1 tsp b y mouth every 6 hours if needed for cough PROMETHAZINE-CODEINE 6.25-10 MG/5ML ORAL SYRUP 570785 PROMETHAZINE-CODEINE Inactive CHERATUSSIN AC 100-10 MG/5ML ORAL SYRUP 1 tsp by mouth every 4 hours as needed for cough CHERATUSSIN AC 100-10 MG/5ML ORAL SYRUP 9 73678 GUAIFENESIN-CODEINE Inactive FLUTICASONE PROPIONATE 50 MCG/ACT NASAL SUSPENSION 1 t o 2 sprays each nostril daily FLUTICASONE PROPIONATE 50 MCG/AC T NASAL SUSPENSION 5202319 FLUTICASONE PROPIONATE Inactive PREDNISONE 20 MG ORAL TABLET 3 tab PO qd x 2d, 2 tab P O qd x 2d, 1 tab PO qd x 2d, 1/2 tab PO qd x 2d PREDNISONE 20 MG ORAL TAB LET 215269 PREDNISONE Inactive LEVOFLOXACIN 500 MG ORAL TABLET 1 tab PO daily x 10 days LEVOFLOXACIN 500 MG ORAL TABLET 073168 LEVOFLOXACIN Inactive CYCLOBENZAPRINE HCL 10 MG ORAL TABLET 1 tablet by mouth BID prn had pain CYCLOBENZAPRINE HCL 10 MG ORAL TABLET 610442 CYCLOBENZAPRINE HCL Inactive ZOCOR 40 MG ORAL TABLET 1 tab by mouth daily 4 ZOCOR 40 MG ORAL TABLET 948714 SIMVASTATIN Inactive TUSSIONEX PENNKINETIC ER 10-8 MG/5ML [...] FLUTICASONE PROPIO EFE 50 MCG/ACT NASAL SUSPENSION 5853066 FLUTICASONE PROPIONATE Inactive TUSSIONEX PENNKINETIC ER 10-8 [...] three days PREDNISONE 20 MG ORAL TABLET 587947 PREDNIS ONE Inactive PROAIR HFA 108 (90 BASE) MCG/ACT INHALATION AEROSOL SO LUTION 2 puffs four times a day as needed PROAIR HFA 108 (90 B ASE) MCG/ACT INHALATION AEROSOL SOLUTION ALBUTEROL SULFATE Inactive PREDNISONE 20 MG ORAL TABLET two tabs by mouth today, then one tab by mouth days two and three and four PREDNISONE 20 MG ORAL TAB LET 161717 PREDNISONE Inactive TUSSIONEX PENNKINETIC ER 10-8 MG/5ML [...] bid 04/20 TOPAMAX 100 MG ORAL TABLET 215416 TOPIRAMATE Inactive CYMBALTA 30 MG ORAL CAPSULE DELAYED RELEASE PARTICLES 1 cap by mouth daily for depression CYMBALTA 30 MG ORAL CAPSULE DELAYED RELEASE PARTICLES 328128 DULOXETINE HCL Inactive ZITHROMAX Z-REYNA 250 MG ORAL TABLET 2 today, then 1 daily for 4 d ays ZITHROMAX Z-REYNA 250 MG ORAL TABLET 710509 AZITHROMYCIN Inactive CEFDINIR 300 MG ORAL CAPSULE by mouth twice a day 2010 CEFDINIR 300 MG ORAL CAPSULE 864657 CEFDINIR Inactive CEFDINIR 300 MG ORAL CAPSULE by mouth twice a day 2010 CEFDINIR 300 MG ORAL CAPSULE 466118 CEFDINIR Inactive CEFDINIR 300 MG ORAL CAPSULE by mouth twice a day 2010 CEFDINIR 300 MG ORAL CAPSULE 357354 CEFDINIR Inactive CEFDINIR 300 MG ORAL CAPSULE by mouth twice a day 2011 CEFDINIR 300 MG ORAL CAPSULE 070345 CEFDINIR Inactive ZITHROMAX 250 MG ORAL TABLET 2 po today, then 1 po q days 2-5 20 03/07/07 ZITHROMAX 250 MG ORAL TABLET 302579 AZITHROMYCIN Greer ctive CEFDINIR 300 MG ORAL CAPSULE by mouth twice a day 2011 CEFDINIR 300 MG ORAL CAPSULE 181242 CEFDINIR Inactive PREDNISONE 20 MG ORAL TABLET 2 tabs daily for 3 days, 1 tab daily for 3 days, 1/2 tab daily for 2 days PREDNISONE 20 MG ORAL T ABLET 450060 PREDNISONE Inactive AVELOX 400 MG ORAL TABLET 1 tab by mouth daily AVELOX 400 MG ORAL TABLET 549137 MOXIFLOXACIN HCL Inactive AVELOX 400 MG ORAL TABLET 1 tab by mouth daily AVELOX 400 MG ORAL TABLET 314121 MOXIFLOXACIN HCL Inactive PREDNISONE 20 MG ORAL TABLET Take 3 tabs daily for 3 d ays, 2 tabs daily for 3 days, 1 tab daily for 3 days, 1/2 tab daily for 3 days 11/07 PREDNISONE 20 MG ORAL TABLET 685111 PREDNISONE Inactive LEVAQUIN 500 MG ORAL TABLET take one po QD LEVAQUIN 500 MG ORAL TABLET 524512 LEVOFLOXACIN Inactive AZITHROMYCIN 250 MG ORAL TABLET 2 po qd x 1 day, then 1 po q d x 4 days AZITHROMYCIN 250 MG ORAL TABLET 222464 AZITHROMY GIOVANNI Inactive MEDROL 4 MG ORAL TABLET THERAPY PACK 6 tabs on day 1, 5 tabs on day 2, 4 tabs on day 3, 3 tabs on day 4, 2 tabs on day 5, 1 tab on day 6 2013 MEDROL 4 MG ORAL TABLET THERAPY PACK 326410 METHYLPREDNISOLONE Mccarley ctive CHERATUSSIN AC 100-10 MG/5ML ORAL SYRUP 5ml po q6hr PRN Cough 20 13/04/14 CHERATUSSIN AC 100-10 MG/5ML ORAL SYRUP 356729 GUAIFENE SIN-CODEINE Inactive TRIAMCINOLONE ACETONIDE 0.1 % EXTERNAL CREAM apply three roger es daily prn rash TRIAMCINOLONE ACETONIDE 0.1 % EXTERNAL CREAM 101 4314 TRIAMCINOLONE ACETONIDE Inactive AZITHROMYCIN 250 MG ORAL TABLET 2 po qd x 1 day, then 1 po q d x 4 days AZITHROMYCIN 250 MG ORAL TABLET 073640 AZITHROMY GIOVANNI Inactive MEDROL 4 MG ORAL TABLET THERAPY PACK 6 pills x 1 day, then 5 pills x 1 day then 4 pills x 1 day, then 3 pills x 1 day, then 2 pills x 1 day, then 1 pill x 1 day, then stop MEDROL 4 MG ORAL TABLET THERAPY PACK 381480 METHYLPREDNISOLONE Inactive AMOXICILLIN 500 MG ORAL CAPSULE 1 tab by mouth 3 times daily x 10 days AMOXICILLIN 500 MG ORAL CAPSULE 054136 AMOXICILL IN Inactive AMOXICILLIN 500 MG ORAL CAPSULE 1 tab by mouth 3 times daily x 10 days AMOXICILLIN 500 MG ORAL CAPSULE 521141 AMOXICILL IN Inactive ZITHROMAX 250 MG ORAL TABLET 2 po today, then 1 po q days 2-5 20 12/08/14 ZITHROMAX 250 MG ORAL TABLET 256216 AZITHROMYCIN [facility] AUGMENTIN 875-125 MG ORAL TABLET 1 po BID x 10 days 20 13/01/20 AUGMENTIN 875-125 MG ORAL TABLET 471331 AMOXICILLIN-POT CLAVULANATE Inactive ZITHROMAX Z-REYNA 250 MG ORAL TABLET 2 today, then 1 daily for 4 d ays ZITHROMAX Z-REYNA 250 MG ORAL TABLET 270459 AZITHROMYCIN Inactive ZITHROMAX 250 MG ORAL TABLET 2 po today, then 1 po q days 2-5 20 14/03/21 ZITHROMAX 250 MG ORAL TABLET 534620 AZITHROMYCIN [place] [facility] ZITHROMAX Z-REYNA 250 MG ORAL TABLET 2 today, then 1 daily for 4 d ays ZITHROMAX Z-REYNA 250 MG ORAL TABLET 774322 AZITHROMYCIN Inactive CEFDINIR 300 MG ORAL CAPSULE 1 po BID x 10 days 06/21 CEFDINIR 300 MG ORAL CAPSULE 440354 CEFDINIR Inactive ZITHROMAX 250 MG ORAL TABLET 2 po today, then 1 po q days 2-5 20 13/08/10 ZITHROMAX 250 MG ORAL TABLET 285204 AZITHROMYCIN Greer ctive LEVAQUIN 500 MG ORAL TABLET 1 tablet by mouth daily 20 13/09/24 LEVAQUIN 500 MG ORAL TABLET 19971102 LEVOFLOXACIN Inactive SINGULAIR 10 MG ORAL TABLET 1 po qday for allergies 20 14/01/12 SINGULAIR 10 MG ORAL TABLET 20010504 MONTELUKAST SODIUM Inactive AMOXICILLIN 500 MG ORAL CAPSULE 2 po BID x 10 days 201 09/29/08 AMOXICILLIN 500 MG ORAL CAPSULE 710148 AMOXICILLIN Inactive PREDNISONE 20 MG ORAL TABLET 2 tabs daily for 3 days, 1 tab daily for 3 days, 1/2 tab daily for 2 days PREDNISONE 20 MG ORAL T ABLET 986782 PREDNISONE Inactive ZITHROMAX Z-REYNA 250 MG ORAL TABLET 2 today, then 1 daily for 4 d ays ZITHROMAX Z-REYNA 250 MG ORAL TABLET 779285 AZITHROMYCIN Inactive PREDNISONE 20 MG ORAL TABLET 2 tabs daily for 3 days, 1 tab daily for 3 days, 1/2 tab daily for 2 days PREDNISONE 20 MG ORAL T ABLET 885580 PREDNISONE Inactive ZITHROMAX 250 MG ORAL TABLET 2 po today, then 1 po q days 2-5 20 14/09/04 ZITHROMAX 250 MG ORAL TABLET 440849 AZITHROMYCIN M[facility]ar[place] ctive AMOXICILLIN 500 MG ORAL CAPSULE 1 cap by mouth three times a day AMOXICILLIN 500 MG ORAL CAPSULE 659072 AMOXICILLIN Inactive TERBINAFINE HCL 250 MG ORAL TABLET 1 qDay for nail fungus 7 TERBINAFINE HCL 250 MG ORAL TABLET 095698 TERBINAFINE HCL Inact nael AUGMENTIN 875-125 MG ORAL TABLET 1 po BID x 10 days 16/03/22 AUGMENTIN 875-125 MG ORAL TABLET 385510 AMOXICILLIN-POT CLAVULANATE Inactive PREDNISONE 20 MG ORAL TABLET 2 po qd x 5 days PREDNISONE 20 MG ORAL TABLET 551203 PREDNISONE Inactive AZITHROMYCIN 250 MG ORAL TABLET 2 po qd x 1 day, then 1 po q d x 4 days AZITHROMYCIN 250 MG ORAL TABLET 071832 AZITHROMY GIOVANNI Inactive PREDNISONE 50 MG ORAL TABLET Take 50 mg dialy for 6 day s 7 PREDNISONE 50 MG ORAL TABLET 896897 PREDNISONE Inactive AUGMENTIN 875-125 MG ORAL TABLET 1 po BID x 10 days 20 18/04/16 AUGMENTIN 875-125 MG ORAL TABLET 545157 AMOXICILLIN-POT CLAVULANATE Inactive DOXYCYCLINE HYCLATE 100 MG ORAL CAPSULE 1 cap by mouth twice latasha ly DOXYCYCLINE HYCLATE 100 MG ORAL CAPSULE 4463764 DOXYCYCL INE HYCLATE Inactive PREDNISONE 20 MG ORAL TABLET Take 2 tabs day 1 and 2 and 1 t ab days 3 and 4 PREDNISONE 20 MG ORAL TABLET 120228 PREDNISONE Inactive Vital Signs Date Name Value [...] - Chem istry sodium, serum 139 mmol/L [phone]/10/12 potassium, serum 3.8 mmol/L 3.5-5.2 chloride, serum [...] negative Encounters Code Encounter Date Provider Facility CPT-22210 Level 3 Est. Patient 16:53:54 CDT May haas MD [facility] CPT-93356 [id number] Vst-Est Level IV 08:41:[address] Carlton Hu MD [facility] CPT-77380 Level 3 Est. Patient 09:46:49 SAFETY REPRESENTATIVE David lion [facility] CPT-09887 [id number] Vst-Est Level III 11:12:16 CDT Yanet Bess DO [facility] CPT-09209 Level 3 Est. Patient 11:34:49 SAFETY REPRESENTATIVE Perez Mora MD [facility] CPT-61537 Level 4 Est. Patient 09:51:32 SAFETY REPRESENTATIVE Carlton rich MD [facility] CPT-44440 Level 3 Est. Patient 10:26:00 SAFETY REPRESENTATIVE Elise stpehenson [facility] CPT-82757 Level 3 Est. Patient 13:35:41 SAFETY REPRESENTATIVE Carlton rich MD [facility] CPT-23980 Level 3 Est. Patient 10:03:52 SAFETY REPRESENTATIVE Carlton rich MD [facility] CPT-27848 Level 3 Est. Patient 12:17:50 CDT Hugo Restrepo MD [facility] CPT-55098 Level 3 Est. Patient 13:42:38 CDT Elise Are ll TELETYPIST [facility] CPT-17178 Level 3 Est. Patient 13:23:51 CDT Diya cobian [facility] CPT-55188 Level 3 Est. Patient 14:22:19 SAFETY REPRESENTATIVE Venuseemagreer Mariana cobian [facility] CPT-28209 Level 3 Est. Patient 10:11:46 CDT Carlton rich MD [facility] CPT-57868 Level 3 Est. Patient 17:29:43 CDT Elise Are ll [facility] CPT-39231 Level 3 Est. Patient 11:58:06 CDT Elise Are ll [facility] CPT-85878 Level 4 Est. Patient 14:36:51 CDT Carlton rich MD [facility] CPT-46214 Level 3 Est. Patient 18:16:00 SAFETY REPRESENTATIVE Blaine HERNANDEZ [facility] CPT-70751 Level 3 Est. Patient 09:45:49 SAFETY REPRESENTATIVE Carlton rich MD [facility] CPT-04542 Level 3 Est. Patient 13:19:20 CDT Carlton rich MD [facility] CPT-86756 Level 3 Est. Patient 13:06:43 CDT Ridge tam DO [facility] CPT-53198 Level 3 Est. Patient 10:03:07 CDT Perez Mora MD [facility] CPT-29742 Level 3 Est. Patient 19:50:35 SAFETY REPRESENTATIVE Carlton rich MD [facility] CPT-82482 Level 4 Est. Patient 18:05:01 SAFETY REPRESENTATIVE Carlton rich MD [facility] CPT-33787 Level 3 Est. Patient 10:45:55 SAFETY REPRESENTATIVE Hugo Restrepo MD [facility] CPT-01577 Level 3 Est. Patient 14:12:49 CDT Griffin HERNANDEZ [facility] CPT-24865 Level 3 Est. Patient 17:37:24 CDT Carlton rich MD [facility] CPT-25942 Level 3 Est. Patient 16:51:54 CDT Carlton rich MD [facility] CPT-07462 Level 3 Est. Patient 12:18:11 CDT Hugo Restrepo MD [facility] CPT-02737 Level 3 Est. Patient 11:30:25 CDT Marcy crisostomo MD PhD [facility] CPT-33930 Level 3 Est. Patient 12:00:47 SAFETY REPRESENTATIVE Carlton rich MD [facility] CPT-90852 Level 3 Est. Patient 16:31:06 SAFETY REPRESENTATIVE Carlton rich MD [facility] CPT-75269 Level 3 Est. Patient 16:23:24 SAFETY REPRESENTATIVE Ridge tam DO [facility] CPT-63881 Level 3 Est. Patient 12:34:12 CDT Carlton rich MD [facility] CPT-31609 Level 2 Est. Patient 15:43:33 CDT Robi armstrong MD [facility] CPT-05904 Level 4 Est. Patient 14:04:44 CDT Carlton rich MD [facility] CPT-59761 Level 3 Est. Patient 05:47:59 CDT Ridge tam DO [facility] CPT-97982 Level 3 Est. Patient 13:12:53 SAFETY REPRESENTATIVE Carlton rich MD [facility] CPT-38216 Level 3 Est. Patient 14:26:53 CDT Hugo Restrepo MD [facility] Procedures Code Procedure Name Date Entry Date Standard Desc ription CPT-000 Give Appropriate Flu Vaccine 14:14:31 CDT 2 CPT-J1040 Depo Medrol 80 mg (Methyl Prednisolone A cetate) 10:42:44 CDT CPT-J1100 Decadron 8mg (Dexamethasone) 10:42:44 CDT 2 CPT-J0696 Rocephin 1gm Inj Solr 14:32:13 CDT CPT-J1020 Depo Medrol 60 mg (Methyl Prednisolone A cetate) 14:32:13 CDT CPT-J1100 Decadron 6mg (Dexamethasone) 14:32:13 CDT 2 CPT-72401 Hip bilat min 2V w AP pelvis 13:16:20 CDT 2 CPT-40518 Pelvis only 13:07:33 CDT CPT-26383 Spec Collection and Handling Fee 11:25:12 C DT CPT-68658 Fluzone Quadrivalent Intramuscular Suspe nsion 0.5 ML 14:31:55 CDT CPT-95391 Abx/Therapy Injection 13:28:47 SAFETY REPRESENTATIVE CPT-J2930 Solu Medrol 125 mg (Methyl Prednisolone Sodium Succinate) 12:00:47 SAFETY REPRESENTATIVE CPT-62002 Venipuncture Draw Fee 11:33:31 CDT CPT-17254 EKG Trac and Interp 11:21:09 CDT CPT-05217 Chest 2V Frontal and Lat 11:21:09 CDT 12/15 CPT-43444 Venipuncture Draw Fee 08:02:34 CDT CPT-87446 Chest 2V Frontal and Lat 05:47:59 CDT 06/05
--- OUTSIDE RECORDS SUMMARY | 2019-10-08 09:07 | XMS REPORT | Clinical Summary ---
Author Author Caitlin, Juliana Martinez Organization [facility] Address Unknown Phone Unavailable Allergies, [...] - acute ICD-465.9 Inactive Hugo Restrepo MD Pelvic pain, acute ICD-789.09 Inactive Hugo Restrepo MD Pharyngitis acute ICD-462 [...] 1 capsule at night PENTOSAN POLYSULFATE SODIUM [id number] Active Cinthia H art RN CLINICAL DOCUMENTATION SPECIALIST Active CYMBALTA 30 MG ORAL CAPSULE DELAYED RELEASE PARTICLES 1 cap by mouth daily for depression DULOXETINE HCL 44656375566 No Longer Active Carlton Hu MD Active CYMBALTA 60 MG ORAL CAPSULE DELAYED RELEASE PARTICLES 1 cap by mouth daily for mood and pain DULOXETINE HCL 51859276056 Active Carlton Hu MD Active TUSSIONEX PENNKINETIC ER 10-8 MG/5ML ORAL SUSPENSION E XTENDED RELEASE 5ml po q12hr PRN Cough HYDROCOD POLST-CHLORPHEN POLST 94903954212 Active David Marianne PET TRAINER Active PREDNISONE 20 MG ORAL TABLET Take 2 tabs day 1 and 2 and 1 t ab days 3 and 4 PREDNISONE 66184445984 No Longer Active David Marianne PET TRAINER Active DOXYCYCLINE HYCLATE 100 MG ORAL CAPSULE 1 cap by mouth twice latasha ly DOXYCYCLINE HYCLATE 51261123757 No Longer Active David Marianne PET TRAINER Active TOPAMAX 100 MG ORAL TABLET Take 1 tablet po bid TOPIRAMATE 83332173440 No Longer Active David Marianne PET TRAINER Active TUSSIONEX PENNKINETIC ER 10-8 MG/5ML ORAL SUSPENSION E XTENDED RELEASE 5ml po q12hr PRN Cough HYDROCOD POLST-CHLORPHEN POLST 5 1704265885 No Longer Active David Marianne PET TRAINER Active AUGMENTIN 875-125 MG ORAL TABLET 1 po BID x 10 days 18/04/16 AMOXICILLIN-POT CLAVULANATE 53512973741 No Longer Active David Marianne PET TRAINER Active PREDNISONE 50 MG ORAL TABLET Take 50 mg dialy for 6 day s 7 PREDNISONE 17138550921 No Longer Active David Marianne PET TRAINER Active TUSSIONEX PENNKINETIC ER 10-8 MG/5ML ORAL SUSPENSION E XTENDED RELEASE 5ml po q12hr PRN Cough HYDROCOD POLST-CHLORPHEN POLST 5 9878899767 No Longer Active Cherelle Torres RN Active PREDNISONE 20 MG ORAL TABLET two tabs by mouth today, then one tab by mouth days two and three and four PREDNISONE 38840675819 No Lo nger Active Cherelle Torres RN Active AZITHROMYCIN 250 MG ORAL TABLET 2 po qd x 1 day, then 1 po q d x 4 days AZITHROMYCIN 72367388609 No Longer Active Ridge Bess DO Active PREDNISONE 20 MG ORAL TABLET 2 po qd x 5 days P REDNISONE 76198833070 No Longer Active Perez Mora MD Active PROAIR HFA 108 (90 BASE) MCG/ACT INHALATION AEROSOL SO LUTION 2 puffs four times a day as needed ALBUTEROL SULFATE 83569529271 No Long er Active Becky Cuellar RMA Active ASPIRIN 81 MG ORAL TABLET 1 po qd ASPIRIN 21597656980 Active Carlton Hu MD Active PREDNISONE 20 MG ORAL TABLET 1 tab twice daily for 3 d ay, then one daily for three days PREDNISONE 77043244164 No Longer Active Carlton Hu MD Active AUGMENTIN 875-125 MG ORAL TABLET 1 po BID x 10 days 16/03/22 AMOXICILLIN-POT CLAVULANATE 21860489419 No Longer Active Elise Garcia APRN Active TERBINAFINE HCL 250 MG ORAL TABLET 1 qDay for nail fungus 7 TERBINAFINE HCL 30182677008 No Longer Active Carlton Hu MD A ctive AMOXICILLIN 500 MG ORAL CAPSULE 1 cap by mouth three times a day AMOXICILLIN 59800975384 No Longer Active Carlton Hu MD Active ELMIRON 100 MG ORAL CAPSULE 2 tablets in the am and 1 tablet at hs PENTOSAN POLYSULFATE SODIUM 11905957374 No Longer Active Robert Hu MD Active MUCINEX D 60-600 MG ORAL TABLET EXTENDED RELEASE 12 HOUR 1 t ab po q am PSEUDOEPHEDRINE-GUAIFENESIN 26989498777 No Longer Act nael Carlton Hu MD Active MUCINEX DM MAXIMUM STRENGTH 60-1200 MG ORAL TABLET EXT ENDED RELEASE 12 HOUR 1 tab po q am DEXTROMETHORPHAN-GUAIFENESIN 91927283403 No Longer Active Carlton Hu MD Active TUSSIONEX PENNKINETIC ER 10-8 MG/5ML ORAL SUSPENSION E XTENDED RELEASE 5ml po q12hr PRN Cough HYDROCOD POLST-CHLORPHEN POLST 5 7787107975 No Longer Active Carlton Hu MD Active POTASSIUM CHLORIDE ER 20 MEQ ORAL TABLET EXTENDED RELE ASE Take 1 by mouth 4 times daily for 7 days POTASSIUM CHLORIDE 60910332219 No Longer Active Carlton Hu MD Active ZITHROMAX 250 MG ORAL TABLET 2 po today, then 1 po q days 2-5 20 14/09/04 AZITHROMYCIN 40489608961 No Longer Active Elise Garcia APRN Active TUSSIONEX PENNKINETIC ER 10-8 MG/5ML ORAL SUSPENSION E XTENDED RELEASE 5 ml twice a day as needed for cough HYDROCOD POLST-CHLORPH EN POLST 84604227048 No Longer Active Elise Garcia APRN Active MONTELUKAST SODIUM 10 MG ORAL TABLET 1 po daily for Allergy MONTELUKAST SODIUM 13653122446 Active Carlton Hu MD Ac tive TUSSIONEX PENNKINETIC ER 10-8 MG/5ML ORAL SUSPENSION E XTENDED RELEASE 5ml po q12hr PRN Cough HYDROCOD POLST-CHLORPHEN POLST 5 9784582708 No Longer Active Hugo Restrepo MD Active GABAPENTIN 100 MG ORAL CAPSULE 1 po BID for fibromyalgia GABAPENTIN 96587892747 Active ALFREDO Holly Active LYRICA 100 MG ORAL CAPSULE Take 1 tab po BID for fibromyalgia 20 11/08/21 PREGABALIN 92717942882 No Longer Active Elise Garcia APRN A ctive PREDNISONE 20 MG ORAL TABLET 2 tabs daily for 3 days, 1 tab daily for 3 days, 1/2 tab daily for 2 days PREDNISONE 99594974065 No Longer Active Diya De Guzman APRN Active TUSSIONEX PENNKINETIC ER 10-8 MG/5ML ORAL SUSPENSION E XTENDED RELEASE 5 mL PO q 12 hrs PRN cough HYDROCOD POLST-CHLORPHEN POLST 786627 77243 No Longer Active Jiriley De Guzman APRN Active FLUTICASONE PROPIONATE 50 MCG/ACT NASAL SUSPENSION 2 s prays each nostril daily until bottle is empty FLUTICASONE PROPIONATE 789240399 99 No Longer Active Diya De Guzman APRN Active ASMANEX 60 METERED DOSES 220 MCG/INH INHALATION AEROSO L POWDER BREATH ACTIVATED 1 puff bid with rinse after MOMETASONE FUROATE 8983502 4102 No Longer Active Diya De Guzman APRN Active ZITHROMAX Z-REYNA 250 MG ORAL TABLET 2 today, then 1 daily for 4 d ays AZITHROMYCIN 74337578453 No Longer Active Elise Garcia APRN Active TUSSIONEX PENNKINETIC ER 10-8 MG/5ML ORAL SUSPENSION E XTENDED RELEASE 5ml po q12hr PRN Cough HYDROCOD POLST-CHLORPHEN POLST 5 7814764277 No Longer Active Elise Garcia APRN Active PREDNISONE 20 MG ORAL TABLET 2 tabs daily for 3 days, 1 tab daily for 3 days, 1/2 tab daily for 2 days PREDNISONE 37789795485 No Longer Active Diya De Guzman APRN Active AMOXICILLIN 500 MG ORAL CAPSULE 2 po BID x 10 days 201 09/29/08 AMOXICILLIN 54058542693 No Longer Active Diya De Guzman APRN Act nael SINGULAIR 10 MG ORAL TABLET 1 po qday for allergies 20 14/01/12 MONTELUKAST SODIUM 12464864523 No Longer Active Carlton Hu MD Active LEVAQUIN 500 MG ORAL TABLET 1 tablet by mouth daily 20 13/09/24 LEVOFLOXACIN 55153040360 No Longer Active Carlton Hu MD Acti ve FLUTICASONE PROPIONATE 50 MCG/ACT NASAL SUSPENSION 2 s prays each nostril daily for 2 weeks, then 1 spray each nostril daily. FLUTICASONE PROPIONATE 92444143178 Active Carlton Hu MD Active ZITHROMAX 250 MG ORAL TABLET 2 po today, then 1 po q days 2-5 20 13/08/10 AZITHROMYCIN 08824863610 No Longer Active Elise Garcia APRN Active XANAX 0.5 MG ORAL TABLET one tablet by mouth daily prn anxiety 2015 ALPRAZOLAM 72531842807 Active ALFREDO Holly Active CEFDINIR 300 MG ORAL CAPSULE 1 po BID x 10 days CEFDINIR 38651077672 No Longer Active Carlton Hu MD Active ZOCOR 40 MG ORAL TABLET 1 tab by mouth daily SI MVASTATIN 41647180244 No Longer Active Carlton Hu MD Active CYCLOBENZAPRINE HCL 10 MG ORAL TABLET 1 tablet by mouth BID prn had pain CYCLOBENZAPRINE HCL 60537418688 No Longer Active Jayden Hu MD Active LEVOFLOXACIN 500 MG ORAL TABLET 1 tab PO daily x 10 days LEVOFLOXACIN 06898296184 No Longer Active Carlton Hu MD Acti ve PREDNISONE 20 MG ORAL TABLET 3 tab PO qd x 2d, 2 tab P O qd x 2d, 1 tab PO qd x 2d, 1/2 tab PO qd x 2d PREDNISONE 33249732108 No Lo nger Active Carlton Hu MD Active FLUTICASONE PROPIONATE 50 MCG/ACT NASAL SUSPENSION 1 t o 2 sprays each nostril daily FLUTICASONE PROPIONATE 70855350765 No Longer Ac tive Blaine HERNANDEZ Active CHERATUSSIN AC 100-10 MG/5ML ORAL SYRUP 1 tsp by mouth every 4 hours as needed for cough GUAIFENESIN-CODEINE 60139752688 No Longe r Active Blaine HERNANDEZ Active PROMETHAZINE-CODEINE 6.25-10 MG/5ML ORAL SYRUP 1 tsp b y mouth every 6 hours if needed for cough PROMETHAZINE-CODEINE 76867472229 No Longer Active Blaine HERNANDEZ Active CHERATUSSIN AC 100-10 MG/5ML ORAL SYRUP 1 tsp by mouth every 4 hours as needed for cough GUAIFENESIN-CODEINE 30766215451 No Longe r Active Blaine HERNANDEZ Active ZITHROMAX Z-REYNA 250 MG ORAL TABLET 2 today, then 1 daily for 4 d ays AZITHROMYCIN 98462879566 No Longer Active Columba Raida Act nael ZITHROMAX 250 MG ORAL TABLET 2 po today, then 1 po q days 2-5 20 14/03/21 AZITHROMYCIN 00602216434 No Longer Active Carlton Hu MD Active ZITHROMAX Z-REYNA 250 MG ORAL TABLET 2 today, then 1 daily for 4 d ays AZITHROMYCIN 46617726825 No Longer Active Columba Raida Act nael AUGMENTIN 875-125 MG ORAL TABLET 1 po BID x 10 days 13/01/20 AMOXICILLIN-POT CLAVULANATE 89763411620 No Longer Active Diya De Guzman APRN Active ZITHROMAX 250 MG ORAL TABLET 2 po today, then 1 po q days 2-5 20 12/08/14 AZITHROMYCIN 51458742143 No Longer Active Carlton Hu MD Active TRAMADOL HCL 50 MG ORAL TABLET 1 po tid with ES Tylenol TRAMADOL HCL 99252174481 Active ALFREDO Holly Active PREMARIN 0.625 MG ORAL TABLET TAKE 1 TAB BY MOUTH DAILY ESTROGENS CONJUGATED 75715064399 No Longer Active Ridge Bess DO A ctive CYMBALTA 30 MG ORAL CAPSULE DELAYED RELEASE PARTICLES 1 cap by mouth daily DULOXETINE HCL 36072505889 No Longer Active Ridge tam DO Active AMOXICILLIN 500 MG ORAL CAPSULE 1 tab by mouth 3 times daily x 10 days AMOXICILLIN 07595186032 No Longer Active Carlton bustamante MD Active AMOXICILLIN 500 MG ORAL CAPSULE 1 tab by mouth 3 times daily x 10 days AMOXICILLIN 10189891876 No Longer Active Carlton bustamante MD Active PROMETHAZINE-CODEINE 6.25-10 MG/5ML ORAL SYRUP 1 tsp b y mouth every 8 hours prn cough PROMETHAZINE-CODEINE 54030718761 No Longer Acti ve Carlton Hu MD Active MEDROL 4 MG ORAL TABLET THERAPY PACK 6 pills x 1 day, then 5 pills x 1 day then 4 pills x 1 day, then 3 pills x 1 day, then 2 pills x 1 day, then 1 pill x 1 day, then stop METHYLPREDNISOLONE 18054631849 No Long er Active Perez Mora MD Active AZITHROMYCIN 250 MG ORAL TABLET 2 po qd x 1 day, then 1 po q d x 4 days AZITHROMYCIN 83236203883 No Longer Active Perez Ambriz MD Active SYMBICORT 160-4.5 MCG/ACT INHALATION AEROSOL 2 puffs bid wit h rinse after BUDESONIDE-FORMOTEROL FUMARATE 99670059065 N o Longer Active Perez Mora MD Active LYRICA 75 MG ORAL CAPSULE TAKE 1 CAPSULE BY MOUTH TWICE DAILY PREGABALIN 94959108629 No Longer Active Carlton Hu MD Acti ve TOPAMAX 25 MG ORAL TABLET 1 qHS x 1 week, then 1 BID x 1 week, then 1 qAM and 2 qHS x 1 week, then 2 BID (migraine prevention) T OPIRAMATE 74979754426 No Longer Active Jerica FUENTES Active TOPAMAX 50 MG ORAL TABLET take 1 tab po BID for migraines. 07/02 TOPIRAMATE 08012318261 No Longer Active Jerica FUENTES Active TRIAMCINOLONE ACETONIDE 0.1 % EXTERNAL CREAM apply three roger es daily prn rash TRIAMCINOLONE ACETONIDE 41095900296 No Longer Active Carlton Hu MD Active PAXIL 40 MG ORAL TABLET take 1 tab po qday for depression 0 PAROXETINE HCL 30371921304 Active Carlton Hu MD Active CHERATUSSIN AC 100-10 MG/5ML ORAL SYRUP 5ml po q6hr PRN Cough 20 13/04/14 GUAIFENESIN-CODEINE 20925192165 No Longer Active Carlton Hu MD Active MEDROL 4 MG ORAL TABLET THERAPY PACK 6 tabs on day 1, 5 tabs on day 2, 4 tabs on day 3, 3 tabs on day 4, 2 tabs on day 5, 1 tab on day 6 2013 METHYLPREDNISOLONE 25473326847 No Longer Active Perez Mora MD Active AZITHROMYCIN 250 MG ORAL TABLET 2 po qd x 1 day, then 1 po q d x 4 days AZITHROMYCIN 93209077858 No Longer Active Perez Ambriz MD Active PROPRANOLOL HCL 60 MG ORAL TABLET 1 PO Q D PROPRANOLOL HCL 20277547211 No Longer Active Perez Mora MD Activ e CHERATUSSIN AC 100-10 MG/5ML ORAL SYRUP take one tsp po Q 6h ours prn cough GUAIFENESIN-CODEINE 36577271539 No Longer Active Zia Mora MD Active AUGMENTIN 875-125 MG ORAL TABLET 1 tab by mouth twice daily with food AMOXICILLIN-POT CLAVULANATE 04703719270 No Longer Act nael Perez Mora MD Active CHERATUSSIN AC 100-10 MG/5ML ORAL SYRUP 1 tsp by mouth every 4 hours as needed for cough GUAIFENESIN-CODEINE 92579315844 No Longe r Active Hugo Restrepo MD Active ACETAMINOPHEN-CODEINE #3 300-30 MG ORAL TABLET 1 PO Q 4-6 HRS [place] N PAIN ACETAMINOPHEN-CODEINE 02595590950 No Longer Active Hugo Restrepo MD Active LEVAQUIN 500 MG ORAL TABLET take one po QD LEVO FLOXACIN 84093387834 No Longer Active Griffin HERNANDEZ Active PREDNISONE 20 MG ORAL TABLET Take 3 tabs daily for 3 d ays, 2 tabs daily for 3 days, 1 tab daily for 3 days, 1/2 tab daily for 3 days 11/07 PREDNISONE 41487437017 No Longer Active Carlton Hu MD Acti ve AVELOX 400 MG ORAL TABLET 1 tab by mouth daily MOXIFLOXACIN HCL 03881971979 No Longer Active Carlton Hu MD Active CHERATUSSIN AC 100-10 MG/5ML ORAL SYRUP 1 tsp by mouth every 4 hours as needed for cough GUAIFENESIN-CODEINE 38227030821 No Longe r Active Hugo Restrepo MD Active AVELOX 400 MG ORAL TABLET 1 tab by mouth daily MOXIFLOXACIN HCL 74956848504 No Longer Active Marcy De La Rosa MD PhD Active TERBINAFINE HCL 250 MG ORAL TABLET 1 qDay T ERBINAFINE HCL 93112089908 No Longer Active Marcy De La Rosa MD PhD Active CHERATUSSIN AC 100-10 MG/5ML ORAL SYRUP 1 tsp by mouth every 4 hours as needed for cough GUAIFENESIN-CODEINE 80615678402 No Longe r Active Marcy De La Rosa MD PhD Active AVELOX 400 MG ORAL TABLET 1 tab by mouth daily MOXIFLOXACIN HCL 13437598511 No Longer Active Marcy De La Rosa MD PhD Active HYDROCODONE-ACETAMINOPHEN 5-325 MG ORAL TABLET 1 po q 6hr PRN co ugh HYDROCODONE-ACETAMINOPHEN 15874926012 No Longer Active Marcy De La Rosa MD PhD Active PREDNISONE 20 MG ORAL TABLET 2 tabs daily for 3 days, 1 tab daily for 3 days, 1/2 tab daily for 2 days PREDNISONE 48343484697 No Longer Active Carlton Hu MD Active CEFDINIR 300 MG ORAL CAPSULE by mouth twice a day 2011 CEFDINIR 20852105466 No Longer Active Carlton Hu MD Acti ve HYDROCHLOROTHIAZIDE 25 MG ORAL TABLET 1 TAB PO DAILY HYDROCHLOROTHIAZIDE 95367159572 Active Carlton Hu MD A ctive ACETAMINOPHEN-CODEINE #3 300-30 MG ORAL TABLET 1 tablet po q 4-6 hrs prn pain ACETAMINOPHEN-CODEINE 16573191531 No Longer Active Ridge Bess DO Active ZITHROMAX 250 MG ORAL TABLET 2 po today, then 1 po q days 2-5 20 03/07/07 AZITHROMYCIN 94690307373 No Longer Active Carlton Hu MD Active CHERATUSSIN AC 100-10 MG/5ML ORAL SYRUP take 1 tsp po q4-6 h ours prn cough GUAIFENESIN-CODEINE 33864510639 No Longer Active Jayden Hu MD Active ACETAMINOPHEN-CODEINE #3 300-30 MG ORAL TABLET 1 PO Q 4-6 HR PRN PAIN ACETAMINOPHEN-CODEINE 76687711197 No Longer Active Da raimundo Hu MD Active LORTAB 7.5-500 MG/15ML ORAL ELIXIR 7.5 ml po q 4 hour prn cough HYDROCODONE-ACETAMINOPHEN 50174852806 No Longer Active Carlton Hu MD Active PREDNISONE 20 MG ORAL TABLET 1 po bid 3 days, then 1 po q day 3 days PREDNISONE 31089264674 No Longer Active Carlton Hu MD Active CEFDINIR 300 MG ORAL CAPSULE by mouth twice a day 2011 CEFDINIR 56001746856 No Longer Active Carlton Hu MD Acti ve CEFDINIR 300 MG ORAL CAPSULE by mouth twice a day 2010 CEFDINIR 07560795343 No Longer Active Carlton Hu MD Acti ve CEFDINIR 300 MG ORAL CAPSULE by mouth twice a day 2010 CEFDINIR 74900053011 No Longer Active Carlton Hu MD Acti ve TESSALON PERLES 100 MG ORAL CAPSULE 1 tablet by mouth 3 times daily as needed for cough BENZONATATE 77800879334 No Longer Active Carlton Hu MD Active CEFDINIR 300 MG ORAL CAPSULE by mouth twice a day 2010 CEFDINIR 82957420351 No Longer Active Carlton Hu MD Acti ve ZITHROMAX Z-REYNA 250 MG ORAL TABLET 2 today, then 1 daily for 4 d ays AZITHROMYCIN 26903018251 No Longer Active Hugo Restrepo MD Active TESSALON PERLES 100 MG ORAL CAPSULE 1 tablet by mouth 3 times daily as needed for cough TESSALBARRON PERLES 100 MG ORAL CAPSULE 88109 7 BENZONATATE Inactive PREDNISONE 20 MG ORAL TABLET 1 po bid 3 days, then 1 po q day 3 days PREDNISONE 20 MG ORAL TABLET 484874 PREDNISONE [place] ctive LORTAB 7.5-500 MG/15ML ORAL ELIXIR 7.5 [...] cough CHERATUSSIN AC 100-10 MG/5ML ORAL SYRUP 440333 GUAIFENESIN-CODEINE Inactive ACETAMINOPHEN-CODEINE #3 300-30 MG ORAL TABLET 1 tablet po q 4-6 hrs prn pain ACETAMINOPHEN-CODEINE #3 300-30 MG ORAL TABLET ACETAMINOPHEN-CODEINE Inactive HYDROCODONE-ACETAMINOPHEN 5-325 MG ORAL TABLET 1 po q 6hr PRN co ugh HYDROCODONE-ACETAMINOPHEN 5-325 MG ORAL TABLET 293137 HYDROCODONE-ACETAMINOPHEN Inactive AVELOX 400 MG ORAL TABLET 1 tab by mouth daily AVELOX 400 MG ORAL TABLET 980211 MOXIFLOXACIN HCL Inactive CHERATUSSIN AC 100-10 MG/5ML ORAL SYRUP 1 tsp by mouth every 4 hours as needed for cough CHERATUSSIN AC 100-10 MG/5ML ORAL SYRUP 9 02715 GUAIFENESIN-CODEINE Inactive TERBINAFINE HCL 250 MG ORAL TABLET 1 qDay 07/08 TERBINAFINE HCL 250 MG ORAL TABLET 607407 TERBINAFINE HCL Inactive CHERATUSSIN AC 100-10 MG/5ML ORAL SYRUP 1 tsp by mouth every 4 hours as needed for cough CHERATUSSIN AC 100-10 MG/5ML ORAL SYRUP 9 87297 GUAIFENESIN-CODEINE Inactive ACETAMINOPHEN-CODEINE #3 300-30 MG ORAL TABLET 1 PO Q 4-6 HRS [place] N PAIN ACETAMINOPHEN-CODEINE #3 300-30 MG ORAL TABLET ACETAMINOPHEN-CODEINE Inactive CHERATUSSIN AC 100-10 MG/5ML ORAL SYRUP 1 tsp by mouth every 4 hours as needed for cough CHERATUSSIN AC 100-10 MG/5ML ORAL SYRUP 9 31706 GUAIFENESIN-CODEINE Inactive AUGMENTIN 875-125 MG ORAL TABLET 1 tab by mouth twice daily with food AUGMENTIN 875-125 MG ORAL TABLET 497085 AMOXICIL MADELINE-POT CLAVULANATE Inactive CHERATUSSIN AC 100-10 MG/5ML ORAL SYRUP take one tsp po Q 6h ours prn cough CHERATUSSIN AC 100-10 MG/5ML ORAL SYRUP 127094 GUAIFENESIN-CODEINE Inactive PROPRANOLOL HCL 60 MG ORAL TABLET 1 PO Q D PROPRANOLOL HCL 60 MG ORAL TABLET 599009 PROPRANOLOL HCL Inactive TOPAMAX 50 MG ORAL TABLET take 1 tab po BID for migraines. 07/02 TOPAMAX 50 MG ORAL TABLET 173567 TOPIRAMATE Inacti ve TOPAMAX 25 MG ORAL TABLET 1 qHS x 1 week, then 1 BID x 1 week, then 1 qAM and 2 qHS x 1 week, then 2 BID (migraine prevention) TOPAMAX 25 MG ORAL TABLET 601214 TOPIRAMATE Inactive LYRICA 75 MG ORAL CAPSULE TAKE 1 CAPSULE BY MOUTH TWICE DAILY LYRICA 75 MG ORAL CAPSULE PREGABALIN Inactive SYMBICORT 160-4.5 MCG/ACT INHALATION AEROSOL 2 puffs bid wit h rinse after SYMBICORT 160-4.5 MCG/ACT INHALATION AEROSOL BUDESONIDE- FORMOTEROL FUMARATE Inactive PROMETHAZINE-CODEINE 6.25-10 MG/5ML ORAL SYRUP 1 tsp b y mouth every 8 hours prn cough PROMETHAZINE-CODEINE 6.25-10 MG/ 5ML ORAL SYRUP 428456 PROMETHAZINE-CODEINE Inactive CYMBALTA 30 MG ORAL CAPSULE DELAYED RELEASE PARTICLES 1 cap by mouth daily CYMBALTA 30 MG ORAL CAPSULE DELAYED RELE ASE PARTICLES 258898 DULOXETINE HCL Inactive PREMARIN 0.625 MG ORAL TABLET TAKE 1 TAB BY MOUTH DAILY PREMARIN 0.625 MG ORAL TABLET ESTROGENS CONJUGATED Inactive CHERATUSSIN AC 100-10 MG/5ML ORAL SYRUP 1 tsp by mouth every 4 hours as needed for cough CHERATUSSIN AC 100-10 MG/5ML ORAL SYRUP 9 00695 GUAIFENESIN-CODEINE Inactive PROMETHAZINE-CODEINE 6.25-10 MG/5ML ORAL SYRUP 1 tsp b y mouth every 6 hours if needed for cough PROMETHAZINE-CODEINE 6.25-10 MG/5ML ORAL SYRUP 632259 PROMETHAZINE-CODEINE Inactive CHERATUSSIN AC 100-10 MG/5ML ORAL SYRUP 1 tsp by mouth every 4 hours as needed for cough CHERATUSSIN AC 100-10 MG/5ML ORAL SYRUP 9 59391 GUAIFENESIN-CODEINE Inactive FLUTICASONE PROPIONATE 50 MCG/ACT NASAL SUSPENSION 1 t o 2 sprays each nostril daily FLUTICASONE PROPIONATE 50 MCG/AC T NASAL SUSPENSION 3664116 FLUTICASONE PROPIONATE Inactive PREDNISONE 20 MG ORAL TABLET 3 tab PO qd x 2d, 2 tab P O qd x 2d, 1 tab PO qd x 2d, 1/2 tab PO qd x 2d PREDNISONE 20 MG ORAL TAB LET 021078 PREDNISONE Inactive LEVOFLOXACIN 500 MG ORAL TABLET 1 tab PO daily x 10 days LEVOFLOXACIN 500 MG ORAL TABLET 527709 LEVOFLOXACIN Inactive CYCLOBENZAPRINE HCL 10 MG ORAL TABLET 1 tablet by mouth BID prn had pain CYCLOBENZAPRINE HCL 10 MG ORAL TABLET 368942 CYCLOBENZAPRINE HCL Inactive ZOCOR 40 MG ORAL [...] FLUTICASONE PROPIO EFE 50 MCG/ACT NASAL SUSPENSION 4042329 FLUTICASONE PROPIONATE Inactive TUSSIONEX PENNKINETIC ER 10-8 [...] three days PREDNISONE 20 MG ORAL TABLET 338785 PREDNIS ONE Inactive PROAIR HFA 108 (90 BASE) MCG/ACT INHALATION AEROSOL SO LUTION 2 puffs four times a day as needed PROAIR HFA 108 (90 B ASE) MCG/ACT INHALATION AEROSOL SOLUTION ALBUTEROL SULFATE Inactive PREDNISONE 20 MG ORAL TABLET two tabs by mouth today, then one tab by mouth days two and three and four PREDNISONE 20 MG ORAL TAB LET 202885 PREDNISONE Inactive TUSSIONEX PENNKINETIC ER 10-8 MG/5ML [...] bid 04/20 TOPAMAX 100 MG ORAL TABLET 558202 TOPIRAMATE Inactive CYMBALTA 30 MG ORAL CAPSULE DELAYED RELEASE PARTICLES 1 cap by mouth daily for depression CYMBALTA 30 MG ORAL CAPSULE DELAYED RELEASE PARTICLES 610157 DULOXETINE HCL Inactive ZITHROMAX Z-REYNA 250 MG ORAL TABLET 2 today, then 1 daily for 4 d ays ZITHROMAX Z-ERYNA 250 MG ORAL TABLET 377106 AZITHROMYCIN Inactive CEFDINIR 300 MG ORAL CAPSULE by mouth twice a day 2010 CEFDINIR 300 MG ORAL CAPSULE 253495 CEFDINIR Inactive CEFDINIR 300 MG ORAL CAPSULE by mouth twice a day 2010 CEFDINIR 300 MG ORAL CAPSULE 145054 CEFDINIR Inactive CEFDINIR 300 MG ORAL CAPSULE by mouth twice a day 2010 CEFDINIR 300 MG ORAL CAPSULE 119641 CEFDINIR Inactive CEFDINIR 300 MG ORAL CAPSULE by mouth twice a day 2011 CEFDINIR 300 MG ORAL CAPSULE 518968 CEFDINIR Inactive ZITHROMAX 250 MG ORAL TABLET 2 po today, then 1 po q days 2-5 20 03/07/07 ZITHROMAX 250 MG ORAL TABLET 709849 AZITHROMYCIN [place] ctive CEFDINIR 300 MG ORAL CAPSULE by mouth twice a day 2011 CEFDINIR 300 MG ORAL CAPSULE 695350 CEFDINIR Inactive PREDNISONE 20 MG ORAL TABLET 2 tabs daily for 3 days, 1 tab daily for 3 days, 1/2 tab daily for 2 days PREDNISONE 20 MG ORAL T ABLET 725093 PREDNISONE Inactive AVELOX 400 MG ORAL TABLET 1 tab by mouth daily AVELOX 400 MG ORAL TABLET 897945 MOXIFLOXACIN HCL Inactive AVELOX 400 MG ORAL TABLET 1 tab by mouth daily AVELOX 400 MG ORAL TABLET 924293 MOXIFLOXACIN HCL Inactive PREDNISONE 20 MG ORAL TABLET Take 3 tabs daily for 3 d ays, 2 tabs daily for 3 days, 1 tab daily for 3 days, 1/2 tab daily for 3 days 11/07 PREDNISONE 20 MG ORAL TABLET 244110 PREDNISONE Inactive LEVAQUIN 500 MG ORAL TABLET take one po QD LEVAQUIN 500 MG ORAL TABLET 972995 LEVOFLOXACIN Inactive AZITHROMYCIN 250 MG ORAL TABLET 2 po qd x 1 day, then 1 po q d x 4 days AZITHROMYCIN 250 MG ORAL TABLET 632018 AZITHROMY GIOVANNI Inactive MEDROL 4 MG ORAL TABLET THERAPY PACK 6 tabs on day 1, 5 tabs on day 2, 4 tabs on day 3, 3 tabs on day 4, 2 tabs on day 5, 1 tab on day 6 2013 MEDROL 4 MG ORAL TABLET THERAPY PACK 129070 METHYLPREDNISOLONE [place] ctive CHERATUSSIN AC 100-10 MG/5ML ORAL SYRUP 5ml po q6hr PRN Cough 20 13/04/14 CHERATUSSIN AC 100-10 MG/5ML ORAL SYRUP 327227 GUAIFENE SIN-CODEINE Inactive TRIAMCINOLONE ACETONIDE 0.1 % EXTERNAL CREAM apply three roger es daily prn rash TRIAMCINOLONE ACETONIDE 0.1 % EXTERNAL CREAM 101 4314 TRIAMCINOLONE ACETONIDE Inactive AZITHROMYCIN 250 MG ORAL TABLET 2 po qd x 1 day, then 1 po q d x 4 days AZITHROMYCIN 250 MG ORAL TABLET 088731 AZITHROMY GIOVANNI Inactive MEDROL 4 MG ORAL TABLET THERAPY PACK 6 pills x 1 day, then 5 pills x 1 day then 4 pills x 1 day, then 3 pills x 1 day, then 2 pills x 1 day, then 1 pill x 1 day, then stop MEDROL 4 MG ORAL TABLET THERAPY PACK 380564 METHYLPREDNISOLONE Inactive AMOXICILLIN 500 MG ORAL CAPSULE 1 tab by mouth 3 times daily x 10 days AMOXICILLIN 500 MG ORAL CAPSULE 402444 AMOXICILL IN Inactive AMOXICILLIN 500 MG ORAL CAPSULE 1 tab by mouth 3 times daily x 10 days AMOXICILLIN 500 MG ORAL CAPSULE 737654 AMOXICILL IN Inactive ZITHROMAX 250 MG ORAL TABLET 2 po today, then 1 po q days 2-5 20 12/08/14 ZITHROMAX 250 MG ORAL TABLET 870434 AZITHROMYCIN [facility] AUGMENTIN 875-125 MG ORAL TABLET 1 po BID x 10 days 20 13/01/20 AUGMENTIN 875-125 MG ORAL TABLET 991606 AMOXICILLIN-POT CLAVULANATE Inactive ZITHROMAX Z-REYNA 250 MG ORAL TABLET 2 today, then 1 daily for 4 d ays ZITHROMAX Z-REYNA 250 MG ORAL TABLET 975055 AZITHROMYCIN Inactive ZITHROMAX 250 MG ORAL TABLET 2 po today, then 1 po q days 2-5 20 14/03/21 ZITHROMAX 250 MG ORAL TABLET 676865 AZITHROMYCIN [place] [facility] ZITHROMAX Z-REYNA 250 MG ORAL TABLET 2 today, then 1 daily for 4 d ays ZITHROMAX Z-REYNA 250 MG ORAL TABLET [id number] AZITHROMYCIN Inactive CEFDINIR 300 MG ORAL CAPSULE 1 po BID x 10 days 06/21 CEFDINIR 300 MG ORAL CAPSULE 085619 CEFDINIR Inactive ZITHROMAX 250 MG ORAL TABLET 2 po today, then 1 po q days 2-5 20 13/08/10 ZITHROMAX 250 MG ORAL TABLET 909995 AZITHROMYCIN [facility] LEVAQUIN 500 MG ORAL TABLET 1 tablet by mouth daily 20 13/09/24 LEVAQUIN 500 MG ORAL TABLET 19971102 LEVOFLOXACIN Inactive SINGULAIR 10 MG ORAL TABLET 1 po qday for allergies 20 14/01/12 SINGULAIR 10 MG ORAL TABLET 20010504 MONTELUKAST SODIUM Inactive AMOXICILLIN 500 MG ORAL CAPSULE 2 po BID x 10 days 201 09/29/08 AMOXICILLIN 500 MG ORAL CAPSULE 980576 AMOXICILLIN Inactive PREDNISONE 20 MG ORAL TABLET 2 tabs daily for 3 days, 1 tab daily for 3 days, 1/2 tab daily for 2 days PREDNISONE 20 MG ORAL T ABLET 038000 PREDNISONE Inactive ZITHROMAX Z-REYNA 250 MG ORAL TABLET 2 today, then 1 daily for 4 d ays ZITHROMAX Z-REYNA 250 MG ORAL TABLET 140361 AZITHROMYCIN Inactive PREDNISONE 20 MG ORAL TABLET 2 tabs daily for 3 days, 1 tab daily for 3 days, 1/2 tab daily for 2 days PREDNISONE 20 MG ORAL T ABLET 860208 PREDNISONE Inactive ZITHROMAX 250 MG ORAL TABLET 2 po today, then 1 po q days 2-5 20 14/09/04 ZITHROMAX 250 MG ORAL TABLET 544488 AZITHROMYCIN [place] [facility] AMOXICILLIN 500 MG ORAL CAPSULE 1 cap by mouth three times a day AMOXICILLIN 500 MG ORAL CAPSULE 136110 AMOXICILLIN Inactive TERBINAFINE HCL 250 MG ORAL TABLET 1 qDay for nail fungus 7 TERBINAFINE HCL 250 MG ORAL TABLET 722393 TERBINAFINE HCL Inact nael AUGMENTIN 875-125 MG ORAL TABLET 1 po BID x 10 days 16/03/22 AUGMENTIN 875-125 MG ORAL TABLET 199203 AMOXICILLIN-POT CLAVULANATE Inactive PREDNISONE 20 MG ORAL TABLET 2 po qd x 5 days PREDNISONE 20 MG ORAL TABLET 671090 PREDNISONE Inactive AZITHROMYCIN 250 MG ORAL TABLET 2 po qd x 1 day, then 1 po q d x 4 days AZITHROMYCIN 250 MG ORAL TABLET 214895 AZITHROMY GIOVANNI Inactive PREDNISONE 50 MG ORAL TABLET Take 50 mg dialy for 6 day s 7 PREDNISONE 50 MG ORAL TABLET 253876 PREDNISONE Inactive AUGMENTIN 875-125 MG ORAL TABLET 1 po BID x 10 days 20 18/04/16 AUGMENTIN 875-125 MG ORAL TABLET 526923 AMOXICILLIN-POT CLAVULANATE Inactive DOXYCYCLINE HYCLATE 100 MG ORAL CAPSULE 1 cap by mouth twice latasha ly DOXYCYCLINE HYCLATE 100 MG ORAL CAPSULE 0738306 DOXYCYCL INE HYCLATE Inactive PREDNISONE 20 MG ORAL TABLET Take 2 tabs day 1 and 2 and 1 t ab days 3 and 4 PREDNISONE 20 MG ORAL TABLET 383011 PREDNISONE Inactive Vital Signs Date Name Value [...] - Chem istry sodium, serum 139 mmol/L 666-107 3604/10/12 potassium, serum 3.8 mmol/L 3.5-5.2 chloride, serum [...] negative Encounters Code Encounter Date Provider Facility CPT-01278 Level 3 Est. Patient 16:53:54 CDT May haas MD [facility] CPT-68213 [id number] Vst-Est Level IV 08:41:[address] Carlton Hu MD [facility] CPT-71284 Level 3 Est. Patient 09:46:49 RESEARCH CONSULTANT David lion [facility] CPT-04984 [id number] Vst-Est Level III 11:12:16 CDT Yanet Bess DO [facility] CPT-35497 Level 3 Est. Patient 11:34:49 RESEARCH CONSULTANT Perez Mora MD [facility] CPT-56694 Level 4 Est. Patient 09:51:32 RESEARCH CONSULTANT Carlton rich MD [facility] CPT-35380 Level 3 Est. Patient 10:26:00 RESEARCH CONSULTANT Elise stephenson [facility] CPT-73734 Level 3 Est. Patient 13:35:41 RESEARCH CONSULTANT Carlton rich MD [facility] CPT-71319 Level 3 Est. Patient 10:03:52 RESEARCH CONSULTANT Carlton rich MD [facility] CPT-92160 Level 3 Est. Patient 12:17:50 CDT Hugo Restrepo MD [facility] CPT-90900 Level 3 Est. Patient 13:42:38 CDT Elise Are ll PET TRAINER [facility] CPT-20974 Level 3 Est. Patient 13:23:51 CDT Diya cobian [facility] CPT-79893 Level 3 Est. Patient 14:22:19 RESEARCH CONSULTANT Astridgreer Mariana cobian [facility] CPT-10223 Level 3 Est. Patient 10:11:46 CDT Carlton rich MD [facility] CPT-76652 Level 3 Est. Patient 17:29:43 CDT Elise Are ll [facility] CPT-95438 Level 3 Est. Patient 11:58:06 CDT Elise Are ll [facility] CPT-01549 Level 4 Est. Patient 14:36:51 CDT Carlton rich MD [facility] CPT-60565 Level 3 Est. Patient 18:16:00 RESEARCH CONSULTANT Blaine HERNANDEZ [facility] CPT-78677 Level 3 Est. Patient 09:45:49 RESEARCH CONSULTANT Carlton rich MD [facility] CPT-63008 Level 3 Est. Patient 13:19:20 CDT Carlton rich MD [facility] CPT-10520 Level 3 Est. Patient 13:06:43 CDT Ridge tam DO [facility] CPT-09605 Level 3 Est. Patient 10:03:07 CDT Perez Mora MD [facility] CPT-79998 Level 3 Est. Patient 19:50:35 RESEARCH CONSULTANT Carlton rich MD [facility] CPT-48540 Level 4 Est. Patient 18:05:01 RESEARCH CONSULTANT Carlton rich MD [facility] CPT-81664 Level 3 Est. Patient 10:45:55 RESEARCH CONSULTANT Hugo Restrepo MD [facility] CPT-55615 Level 3 Est. Patient 14:12:49 CDT Griffin HERNANDEZ [facility] CPT-48256 Level 3 Est. Patient 17:37:24 CDT Carlton rich MD [facility] CPT-29539 Level 3 Est. Patient 16:51:54 CDT Carlton rich MD [facility] CPT-60149 Level 3 Est. Patient 12:18:11 CDT Hugo Restrepo MD [facility] CPT-22284 Level 3 Est. Patient 11:30:25 CDT Marcy crisostomo MD PhD [facility] CPT-88671 Level 3 Est. Patient 12:00:47 RESEARCH CONSULTANT aCrlton rich MD [facility] CPT-84888 Level 3 Est. Patient 16:31:06 RESEARCH CONSULTANT Carlton rich MD [facility] CPT-65096 Level 3 Est. Patient 16:23:24 RESEARCH CONSULTANT Ridge tam DO [facility] CPT-01951 Level 3 Est. Patient 12:34:12 CDT Carlton rich MD [facility] CPT-86252 Level 2 Est. Patient 15:43:33 CDT Robi armstrong MD [facility] CPT-45764 Level 4 Est. Patient 14:04:44 CDT Carlton rich MD [facility] CPT-78859 Level 3 Est. Patient 05:47:59 CDT Ridge tam [facility] CPT-78672 Level 3 Est. Patient 13:12:53 RESEARCH CONSULTANT Carlton rich MD [facility] CPT-40801 Level 3 Est. Patient 14:26:53 CDT Hugo Restrepo MD [facility] Procedures Code Procedure Name [...] CPT-J1100 Decadron 6mg (Dexamethasone) 14:32:13 CDT 2 CPT-47044 Hip bilat min 2V w AP pelvis 13:16:20 CDT 2 CPT-54108 Pelvis only 13:07:33 CDT CPT-59625 Spec Collection and Handling Fee 11:25:12 C DT CPT-63290 Fluzone Quadrivalent Intramuscular Suspe nsion 0.5 ML 14:31:55 CDT CPT-29311 Abx/Therapy Injection 13:28:47 RESEARCH CONSULTANT CPT-J2930 Solu Medrol 125 mg (Methyl Prednisolone Sodium Succinate) 12:00:47 RESEARCH CONSULTANT CPT-40105 Venipuncture Draw Fee 11:33:31 CDT CPT-60359 EKG Trac and Interp 11:21:09 CDT CPT-70664 Chest 2V Frontal and Lat 11:21:09 CDT 12/15 CPT-52803 Venipuncture Draw Fee 08:02:34 CDT CPT-12069 Chest 2V Frontal and Lat 05:47:59 CDT 06/05
--- OUTSIDE RECORDS SUMMARY | 2019-10-08 09:08 | XMS REPORT | Clinical Summary ---
Author Author Caitlin, Juliana Martinez Organization [facility] Address Unknown Phone Unavailable Allergies, [...] sinusitis, unspecified CALF PAIN, LEFT 729.5 Active uHgo Restrepo MD Pain in limb SINUSITIS 473.9 [...] Restrepo MD Acute pharyngitis Onychomycosis 112.3 Active Carltno Hu MD Candidiasis of skin and nails [...] by mouth daily for depression DULOXETINE HCL 28647835791 No Longer Active Carlton Hu MD Active CYMBALTA 60 MG ORAL CAPSULE DELAYED RELEASE PARTICLES 1 cap by mouth daily for mood and pain DULOXETINE HCL 97085248854 Active Carlton Hu MD Active TUSSIONEX PENNKINETIC ER 10-8 MG/5ML ORAL SUSPENSION E XTENDED RELEASE 5ml po q12hr PRN Cough HYDROCOD POLST-CHLORPHEN POLST 30511780440 Active David Marianne VOLUNTEER ASSISTANT Active PREDNISONE 20 MG ORAL TABLET Take 2 tabs day 1 and 2 and 1 t ab days 3 and 4 PREDNISONE 77263459277 No Longer Active David Marianne VOLUNTEER ASSISTANT Active DOXYCYCLINE HYCLATE 100 MG ORAL CAPSULE 1 cap by mouth twice latasha ly DOXYCYCLINE HYCLATE 00734160959 No Longer Active David Lopes APRN Active TOPAMAX 100 MG ORAL TABLET Take 1 tablet po bid TOPIRAMATE 36529321244 No Longer Active David Marianne VOLUNTEER ASSISTANT Active TUSSIONEX PENNKINETIC ER 10-8 MG/5ML ORAL SUSPENSION E XTENDED RELEASE 5ml po q12hr PRN Cough HYDROCOD POLST-CHLORPHEN POLST 5 7264112612 No Longer Active David Marianne VOLUNTEER ASSISTANT Active AUGMENTIN 875-125 MG ORAL TABLET 1 po BID x 10 days 20 18/04/16 AMOXICILLIN-POT CLAVULANATE 83241923074 No Longer Active David Lopes VOLUNTEER ASSISTANT Active PREDNISONE 50 MG ORAL TABLET Take 50 mg dialy for 6 day s 7 PREDNISONE 72752735409 No Longer Active David Marianne RICEN Active TUSSIONEX PENNKINETIC ER 10-8 MG/5ML ORAL SUSPENSION E XTENDED RELEASE 5ml po q12hr PRN Cough HYDROCOD POLST-CHLORPHEN POLST 5 6315945913 No Longer Active Cherelle Torres RN Active PREDNISONE 20 MG ORAL TABLET two tabs by mouth today, then one tab by mouth days two and three and four PREDNISONE 29771260306 No Lo nger Active Cherelle Torres RN Active AZITHROMYCIN 250 MG ORAL TABLET 2 po qd x 1 day, then 1 po q d x 4 days AZITHROMYCIN 36731496172 No Longer Active Ridge Bess DO Active PREDNISONE 20 MG ORAL TABLET 2 po qd x 5 days P REDNISONE 71572678280 No Longer Active Perez Mora MD Active PROAIR HFA 108 (90 BASE) MCG/ACT INHALATION AEROSOL SO LUTION 2 puffs four times a day as needed ALBUTEROL SULFATE 01476175134 No Long er Active Becky AGUILARA Active ASPIRIN 81 MG ORAL TABLET 1 po qd ASPIRIN 75954014355 Active Carlton Hu MD Active PREDNISONE 20 MG ORAL TABLET 1 tab twice daily for 3 d ay, then one daily for three days PREDNISONE 68375972608 No Longer Active Carlton Hu MD Active AUGMENTIN 875-125 MG ORAL TABLET 1 po BID x 10 days 16/03/22 AMOXICILLIN-POT CLAVULANATE 29940817412 No Longer Active Elise Garcia APRN Active TERBINAFINE HCL 250 MG ORAL TABLET 1 qDay for nail fungus 7 TERBINAFINE HCL 62859063877 No Longer Active Carlton Hu MD A ctive AMOXICILLIN 500 MG ORAL CAPSULE 1 cap by mouth three times a day AMOXICILLIN 92348520826 No Longer Active Carlton Hu MD Active ELMIRON 100 MG ORAL CAPSULE 2 tablets in the am and 1 tablet at hs PENTOSAN POLYSULFATE SODIUM 77337395127 No Longer Active Robert Hu MD Active MUCINEX D 60-600 MG ORAL TABLET EXTENDED RELEASE 12 HOUR 1 t ab po q am PSEUDOEPHEDRINE-GUAIFENESIN 86006193216 No Longer Act nael Carlton Hu MD Active MUCINEX DM MAXIMUM STRENGTH 60-1200 MG ORAL TABLET EXT ENDED RELEASE 12 HOUR 1 tab po q am DEXTROMETHORPHAN-GUAIFENESIN 68977167675 No Longer Active Carlton Hu MD Active TUSSIONEX PENNKINETIC ER 10-8 MG/5ML ORAL SUSPENSION E XTENDED RELEASE 5ml po q12hr PRN Cough HYDROCOD POLST-CHLORPHEN POLST 5 9538634435 No Longer Active Carlton Hu MD Active POTASSIUM CHLORIDE ER 20 MEQ ORAL TABLET EXTENDED RELE ASE Take 1 by mouth 4 times daily for 7 days POTASSIUM CHLORIDE 22207886879 No Longer Active Carlton Hu MD Active ZITHROMAX 250 MG ORAL TABLET 2 po today, then 1 po q days 2-5 20 14/09/04 AZITHROMYCIN 49352076517 No Longer Active Elise Garcia APRN Active TUSSIONEX PENNKINETIC ER 10-8 MG/5ML ORAL SUSPENSION E XTENDED RELEASE 5 ml twice a day as needed for cough HYDROCOD POLST-CHLORPH EN POLST 92658552946 No Longer Active Elise Garcia APRN Active MONTELUKAST SODIUM 10 MG ORAL TABLET 1 po daily for Allergy MONTELUKAST SODIUM 55091091987 Active Carlton Hu MD Ac tive TUSSIONEX PENNKINETIC ER 10-8 MG/5ML ORAL SUSPENSION E XTENDED RELEASE 5ml po q12hr PRN Cough HYDROCOD POLST-CHLORPHEN POLST 5 2346355449 No Longer Active Hugo Restrepo MD Active GABAPENTIN 100 MG ORAL CAPSULE 1 po BID for fibromyalgia GABAPENTIN 87953977528 Active ALFREDO Holly Active LYRICA 100 MG ORAL CAPSULE Take 1 tab po BID for fibromyalgia 20 11/08/21 PREGABALIN 63049375172 No Longer Active Elise Garcia APRN A ctive PREDNISONE 20 MG ORAL TABLET 2 tabs daily for 3 days, 1 tab daily for 3 days, 1/2 tab daily for 2 days PREDNISONE 66506303058 No Longer Active Astridina Gege KHAN Active TUSSIONEX PENNKINETIC ER 10-8 MG/5ML ORAL SUSPENSION E XTENDED RELEASE 5 mL PO q 12 hrs PRN cough HYDROCOD POLST-CHLORPHEN POLST 310928 39823 No Longer Active Jillina Frazell VOLUNTEER ASSISTANT Active FLUTICASONE PROPIONATE 50 MCG/ACT NASAL SUSPENSION 2 s prays each nostril daily until bottle is empty FLUTICASONE PROPIONATE 647702853 99 No Longer Active Jillina Frazell VOLUNTEER ASSISTANT Active ASMANEX 60 METERED DOSES 220 MCG/INH INHALATION AEROSO L POWDER BREATH ACTIVATED 1 puff bid with rinse after MOMETASONE FUROATE 2593007 4102 No Longer Active Jillina Frazell VOLUNTEER ASSISTANT Active ZITHROMAX Z-REYNA 250 MG ORAL TABLET 2 today, then 1 daily for 4 d ays AZITHROMYCIN 37607534676 No Longer Active Elise Garcia APRN Active TUSSIONEX PENNKINETIC ER 10-8 MG/5ML ORAL SUSPENSION E XTENDED RELEASE 5ml po q12hr PRN Cough HYDROCOD POLST-CHLORPHEN POLST 5 1521154629 No Longer Active Elise Garcia APRN Active PREDNISONE 20 MG ORAL TABLET 2 tabs daily for 3 days, 1 tab daily for 3 days, 1/2 tab daily for 2 days PREDNISONE 53491668137 No Longer Active Diya De Guzman APRN Active AMOXICILLIN 500 MG ORAL CAPSULE 2 po BID x 10 days 201 09/29/08 AMOXICILLIN 56573990676 No Longer Active Diya De Guzman APRN Act nael SINGULAIR 10 MG ORAL TABLET 1 po qday for allergies 20 14/01/12 MONTELUKAST SODIUM 14875617091 No Longer Active Carlton Hu MD Active LEVAQUIN 500 MG ORAL TABLET 1 tablet by mouth daily 20 13/09/24 LEVOFLOXACIN 33196113366 No Longer Active Carlton Hu MD Acti ve FLUTICASONE PROPIONATE 50 MCG/ACT NASAL SUSPENSION 2 s prays each nostril daily for 2 weeks, then 1 spray each nostril daily. FLUTICASONE PROPIONATE 50209142374 Active Carlton Hu MD Active ZITHROMAX 250 MG ORAL TABLET 2 po today, then 1 po q days 2-5 20 13/08/10 AZITHROMYCIN 01982780863 No Longer Active Elise Garcia APRN Active XANAX 0.5 MG ORAL TABLET one tablet by mouth daily prn anxiety 2015 ALPRAZOLAM 98322626913 Active ALFREDO Holly Active CEFDINIR 300 MG ORAL CAPSULE 1 po BID x 10 days CEFDINIR 07159824307 No Longer Active Carlton Hu MD Active ZOCOR 40 MG ORAL TABLET 1 tab by mouth daily SI MVASTATIN 83174009104 No Longer Active Carlton Hu MD Active CYCLOBENZAPRINE HCL 10 MG ORAL TABLET 1 tablet by mouth BID prn had pain CYCLOBENZAPRINE HCL 04334423143 No Longer Active Jayden Hu MD Active LEVOFLOXACIN 500 MG ORAL TABLET 1 tab PO daily x 10 days LEVOFLOXACIN 72311231903 No Longer Active Carlton Hu MD Acti ve PREDNISONE 20 MG ORAL TABLET 3 tab PO qd x 2d, 2 tab P O qd x 2d, 1 tab PO qd x 2d, 1/2 tab PO qd x 2d PREDNISONE 03234067093 No Lo nger Active Carlton Hu MD Active FLUTICASONE PROPIONATE 50 MCG/ACT NASAL SUSPENSION 1 t o 2 sprays each nostril daily FLUTICASONE PROPIONATE 80478594636 No Longer Ac tive Blaine HERNANDEZ Active CHERATUSSIN AC 100-10 MG/5ML ORAL SYRUP 1 tsp by mouth every 4 hours as needed for cough GUAIFENESIN-CODEINE 31484131252 No Longe r Active Blaine HERNANDEZ Active PROMETHAZINE-CODEINE 6.25-10 MG/5ML ORAL SYRUP 1 tsp b y mouth every 6 hours if needed for cough PROMETHAZINE-CODEINE 08530618204 No Longer Active Blaine HERNANDEZ Active CHERATUSSIN AC 100-10 MG/5ML ORAL SYRUP 1 tsp by mouth every 4 hours as needed for cough GUAIFENESIN-CODEINE 92089982616 No Longe r Active Blaine HERNANDEZ Active ZITHROMAX Z-REYNA 250 MG ORAL TABLET 2 today, then 1 daily for 4 d ays AZITHROMYCIN 60036941677 No Longer Active Columba Raida Act nael ZITHROMAX 250 MG ORAL TABLET 2 po today, then 1 po q days 2-5 20 14/03/21 AZITHROMYCIN 69596349926 No Longer Active Carlton Hu MD Active ZITHROMAX Z-REYNA 250 MG ORAL TABLET 2 today, then 1 daily for 4 d ays AZITHROMYCIN 87892700490 No Longer Active Columba Raida Act nael AUGMENTIN 875-125 MG ORAL TABLET 1 po BID x 10 days 13/01/20 AMOXICILLIN-POT CLAVULANATE 05250375409 No Longer Active Diya Daphnebrayan KHAN Active ZITHROMAX 250 MG ORAL TABLET 2 po today, then 1 po q days 2-5 20 12/08/14 AZITHROMYCIN 93383916185 No Longer Active Carlton Hu MD Active TRAMADOL HCL 50 MG ORAL TABLET 1 po tid with ES Tylenol TRAMADOL HCL 11194469515 Active ALFREDO Holly Active PREMARIN 0.625 MG ORAL TABLET TAKE 1 TAB BY MOUTH DAILY ESTROGENS CONJUGATED 00013097262 No Longer Active Ridge Bess DO A ctive CYMBALTA 30 MG ORAL CAPSULE DELAYED RELEASE PARTICLES 1 cap by mouth daily DULOXETINE HCL 65008954625 No Longer Active Ridge tam DO Active AMOXICILLIN 500 MG ORAL CAPSULE 1 tab by mouth 3 times daily x 10 days AMOXICILLIN 24183596362 No Longer Active Carlton bustamante MD Active AMOXICILLIN 500 MG ORAL CAPSULE 1 tab by mouth 3 times daily x 10 days AMOXICILLIN 16794503978 No Longer Active Carlton bustamante MD Active PROMETHAZINE-CODEINE 6.25-10 MG/5ML ORAL SYRUP 1 tsp b y mouth every 8 hours prn cough PROMETHAZINE-CODEINE 94513785276 No Longer Acti ve Carlton Hu MD Active MEDROL 4 MG ORAL TABLET THERAPY PACK 6 pills x 1 day, then 5 pills x 1 day then 4 pills x 1 day, then 3 pills x 1 day, then 2 pills x 1 day, then 1 pill x 1 day, then stop METHYLPREDNISOLONE 64036697237 No Long er Active Perez Mora MD Active AZITHROMYCIN 250 MG ORAL TABLET 2 po qd x 1 day, then 1 po q d x 4 days AZITHROMYCIN 41999911043 No Longer Active Perez Ambriz MD Active SYMBICORT 160-4.5 MCG/ACT INHALATION AEROSOL 2 puffs bid wit h rinse after BUDESONIDE-FORMOTEROL FUMARATE 15256579891 N o Longer Active Perez Mora MD Active LYRICA 75 MG ORAL CAPSULE TAKE 1 CAPSULE BY MOUTH TWICE DAILY PREGABALIN 49197280830 No Longer Active Carlton Hu MD Acti ve TOPAMAX 25 MG ORAL TABLET 1 qHS x 1 week, then 1 BID x 1 week, then 1 qAM and 2 qHS x 1 week, then 2 BID (migraine prevention) T OPIRAMATE 68378600112 No Longer Active Jerica FUENTES Active TOPAMAX 50 MG ORAL TABLET take 1 tab po BID for migraines. 07/02 TOPIRAMATE 21635626634 No Longer Active Jerica FUENTES Active TRIAMCINOLONE ACETONIDE 0.1 % EXTERNAL CREAM apply three roger es daily prn rash TRIAMCINOLONE ACETONIDE 96486910077 No Longer Active Carlton Hu MD Active PAXIL 40 MG ORAL TABLET take 1 tab po qday for depression 0 PAROXETINE HCL 15254232072 Active Carlton uH MD Active CHERATUSSIN AC 100-10 MG/5ML ORAL SYRUP 5ml po q6hr PRN Cough 20 13/04/14 GUAIFENESIN-CODEINE 47934299077 No Longer Active Carlton Hu MD Active MEDROL 4 MG ORAL TABLET THERAPY PACK 6 tabs on day 1, 5 tabs on day 2, 4 tabs on day 3, 3 tabs on day 4, 2 tabs on day 5, 1 tab on day 6 2013 METHYLPREDNISOLONE 06077355881 No Longer Active Perez Mora MD Active AZITHROMYCIN 250 MG ORAL TABLET 2 po qd x 1 day, then 1 po q d x 4 days AZITHROMYCIN 22508947253 No Longer Active Perez Ambriz MD Active PROPRANOLOL HCL 60 MG ORAL TABLET 1 PO Q D PROPRANOLOL HCL 93774743427 No Longer Active Perez Mora MD Activ e CHERATUSSIN AC 100-10 MG/5ML ORAL SYRUP take one tsp po Q 6h ours prn cough GUAIFENESIN-CODEINE 41701033029 No Longer Active Zia Mora MD Active AUGMENTIN 875-125 MG ORAL TABLET 1 tab by mouth twice daily with food AMOXICILLIN-POT CLAVULANATE 26092355458 No Longer Act nael Mora MD Active CHERATUSSIN AC 100-10 MG/5ML ORAL SYRUP 1 tsp by mouth every 4 hours as needed for cough GUAIFENESIN-CODEINE 24661592443 No Longe r Active Hugo Restrepo MD Active ACETAMINOPHEN-CODEINE #3 300-30 MG ORAL TABLET 1 PO Q 4-6 HRS SC N PAIN ACETAMINOPHEN-CODEINE 83222471317 No Longer Active Hugo Restrepo MD Active LEVAQUIN 500 MG ORAL TABLET take one po QD LEVO FLOXACIN 51158350552 No Longer Active Griffin HERNANDEZ Active PREDNISONE 20 MG ORAL TABLET Take 3 tabs daily for 3 d ays, 2 tabs daily for 3 days, 1 tab daily for 3 days, 1/2 tab daily for 3 days 11/07 PREDNISONE 92110718231 No Longer Active Carlton Hu MD Acti ve AVELOX 400 MG ORAL TABLET 1 tab by mouth daily MOXIFLOXACIN HCL 85934346208 No Longer Active Carlton Hu MD Active CHERATUSSIN AC 100-10 MG/5ML ORAL SYRUP 1 tsp by mouth every 4 hours as needed for cough GUAIFENESIN-CODEINE 65738080036 No Longe r Active Hugo Restrepo MD Active AVELOX 400 MG ORAL TABLET 1 tab by mouth daily MOXIFLOXACIN HCL 10438746618 No Longer Active Marcy De La Rosa MD PhD Active TERBINAFINE HCL 250 MG ORAL TABLET 1 qDay T ERBINAFINE HCL 16002371019 No Longer Active Marcy De La Rosa MD PhD Active CHERATUSSIN AC 100-10 MG/5ML ORAL SYRUP 1 tsp by mouth every 4 hours as needed for cough GUAIFENESIN-CODEINE 28035223597 No Longe r Active Marcy De La Rosa MD PhD Active AVELOX 400 MG ORAL TABLET 1 tab by mouth daily MOXIFLOXACIN HCL 04465899700 No Longer Active Marcy De La Rosa MD PhD Active HYDROCODONE-ACETAMINOPHEN 5-325 MG ORAL TABLET 1 po q 6hr PRN co ugh HYDROCODONE-ACETAMINOPHEN 38152699302 No Longer Active Marcy De La Rosa MD PhD Active PREDNISONE 20 MG ORAL TABLET 2 tabs daily for 3 days, 1 tab daily for 3 days, 1/2 tab daily for 2 days PREDNISONE 19875720930 No Longer Active Carlton Hu MD Active CEFDINIR 300 MG ORAL CAPSULE by mouth twice a day 2011 CEFDINIR 03021046747 No Longer Active Carlton Hu MD Acti ve HYDROCHLOROTHIAZIDE 25 MG ORAL TABLET 1 TAB PO DAILY HYDROCHLOROTHIAZIDE 96618254449 Active Carlton Hu MD A ctive ACETAMINOPHEN-CODEINE #3 300-30 MG ORAL TABLET 1 tablet po q 4-6 hrs prn pain ACETAMINOPHEN-CODEINE 33702334816 No Longer Active Ridge Bess DO Active ZITHROMAX 250 MG ORAL TABLET 2 po today, then 1 po q days 2-5 20 03/07/07 AZITHROMYCIN 39929636025 No Longer Active Carlton Hu MD Active CHERATUSSIN AC 100-10 MG/5ML ORAL SYRUP take 1 tsp po q4-6 h ours prn cough GUAIFENESIN-CODEINE 42765642083 No Longer Active Jayden Hu MD Active ACETAMINOPHEN-CODEINE #3 300-30 MG ORAL TABLET 1 PO Q 4-6 HR PRN PAIN ACETAMINOPHEN-CODEINE 43834122209 No Longer Active Arnol Hu MD Active LORTAB 7.5-500 MG/15ML ORAL ELIXIR 7.5 ml po q 4 hour prn cough HYDROCODONE-ACETAMINOPHEN 65802491089 No Longer Active Carlton Hu MD Active PREDNISONE 20 MG ORAL TABLET 1 po bid 3 days, then 1 po q day 3 days PREDNISONE 23825304696 No Longer Active Carlton Hu MD Active CEFDINIR 300 MG ORAL CAPSULE by mouth twice a day 2011 CEFDINIR 29704202814 No Longer Active Carlton Hu MD Acti ve CEFDINIR 300 MG ORAL CAPSULE by mouth twice a day 2010 CEFDINIR 86306085646 No Longer Active Carlton Hu MD Acti ve CEFDINIR 300 MG ORAL CAPSULE by mouth twice a day 2010 CEFDINIR 13552033973 No Longer Active Carlton Hu MD Acti ve TESSALON PERLES 100 MG ORAL CAPSULE 1 tablet by mouth 3 times daily as needed for cough BENZONATATE 80563562889 No Longer Active Carlton Hu MD Active CEFDINIR 300 MG ORAL CAPSULE by mouth twice a day 2010 CEFDINIR 05719728175 No Longer Active Carlton Hu MD Acti ve ZITHROMAX Z-REYNA 250 MG ORAL TABLET 2 today, then 1 daily for 4 d ays AZITHROMYCIN 18196533120 No Longer Active Hugo Restrepo MD Active TESSALON PERLES 100 MG ORAL CAPSULE 1 tablet by mouth 3 times daily as needed for cough TESSALON PERLES 100 MG ORAL CAPSULE 99688 7 BENZONATATE Inactive PREDNISONE 20 MG ORAL TABLET 1 po bid 3 days, then 1 po q day 3 days PREDNISONE 20 MG ORAL TABLET 772145 PREDNISONE Greer ctive LORTAB 7.5-500 MG/15ML ORAL [...] cough CHERATUSSIN AC 100-10 MG/5ML ORAL SYRUP 176501 GUAIFENESIN-CODEINE Inactive ACETAMINOPHEN-CODEINE #3 300-30 MG ORAL TABLET 1 tablet po q 4-6 hrs prn pain ACETAMINOPHEN-CODEINE #3 300-30 MG ORAL TABLET ACETAMINOPHEN-CODEINE Inactive HYDROCODONE-ACETAMINOPHEN 5-325 MG ORAL TABLET 1 po q 6hr PRN co ugh HYDROCODONE-ACETAMINOPHEN 5-325 MG ORAL TABLET 758544 HYDROCODONE-ACETAMINOPHEN Inactive AVELOX 400 MG ORAL TABLET 1 tab by mouth daily AVELOX 400 MG ORAL TABLET 129971 MOXIFLOXACIN HCL Inactive CHERATUSSIN AC 100-10 MG/5ML ORAL SYRUP 1 tsp by mouth every 4 hours as needed for cough CHERATUSSIN AC 100-10 MG/5ML ORAL SYRUP 9 60442 GUAIFENESIN-CODEINE Inactive TERBINAFINE HCL 250 MG ORAL TABLET 1 qDay 07/08 TERBINAFINE HCL 250 MG ORAL TABLET 544569 TERBINAFINE HCL Inactive CHERATUSSIN AC 100-10 MG/5ML ORAL SYRUP 1 tsp by mouth every 4 hours as needed for cough CHERATUSSIN AC 100-10 MG/5ML ORAL SYRUP 9 44485 GUAIFENESIN-CODEINE Inactive ACETAMINOPHEN-CODEINE #3 300-30 MG ORAL TABLET 1 PO Q 4-6 HRS SC N PAIN ACETAMINOPHEN-CODEINE #3 300-30 MG ORAL TABLET ACETAMINOPHEN-CODEINE Inactive CHERATUSSIN AC 100-10 MG/5ML ORAL SYRUP 1 tsp by mouth every 4 hours as needed for cough CHERATUSSIN AC 100-10 MG/5ML ORAL SYRUP 9 19865 GUAIFENESIN-CODEINE Inactive AUGMENTIN 875-125 MG ORAL TABLET 1 tab by mouth twice daily with food AUGMENTIN 875-125 MG ORAL TABLET 017434 AMOXICIL MADELINE-POT CLAVULANATE Inactive CHERATUSSIN AC 100-10 MG/5ML ORAL SYRUP take one tsp po Q 6h ours prn cough CHERATUSSIN AC 100-10 MG/5ML ORAL SYRUP 859723 GUAIFENESIN-CODEINE Inactive PROPRANOLOL HCL 60 MG ORAL TABLET 1 PO Q D PROPRANOLOL HCL 60 MG ORAL TABLET 236417 PROPRANOLOL HCL Inactive TOPAMAX 50 MG ORAL TABLET take 1 tab po BID for migraines. 07/02 TOPAMAX 50 MG ORAL TABLET 771440 TOPIRAMATE Inacti ve TOPAMAX 25 MG ORAL TABLET 1 qHS x 1 week, then 1 BID x 1 week, then 1 qAM and 2 qHS x 1 week, then 2 BID (migraine prevention) TOPAMAX 25 MG ORAL TABLET 009295 TOPIRAMATE Inactive LYRICA 75 MG ORAL CAPSULE TAKE 1 CAPSULE BY MOUTH TWICE DAILY LYRICA 75 MG ORAL CAPSULE PREGABALIN Inactive SYMBICORT 160-4.5 MCG/ACT INHALATION AEROSOL 2 puffs bid wit h rinse after SYMBICORT 160-4.5 MCG/ACT INHALATION AEROSOL BUDESONIDE- FORMOTEROL FUMARATE Inactive PROMETHAZINE-CODEINE 6.25-10 MG/5ML ORAL SYRUP 1 tsp b y mouth every 8 hours prn cough PROMETHAZINE-CODEINE 6.25-10 MG/ 5ML ORAL SYRUP 535651 PROMETHAZINE-CODEINE Inactive CYMBALTA 30 MG ORAL CAPSULE DELAYED RELEASE PARTICLES 1 cap by mouth daily CYMBALTA 30 MG ORAL CAPSULE DELAYED RELE ASE PARTICLES 426288 DULOXETINE HCL Inactive PREMARIN 0.625 MG ORAL TABLET TAKE 1 TAB BY MOUTH DAILY PREMARIN 0.625 MG ORAL TABLET ESTROGENS CONJUGATED Inactive CHERATUSSIN AC 100-10 MG/5ML ORAL SYRUP 1 tsp by mouth every 4 hours as needed for cough CHERATUSSIN AC 100-10 MG/5ML ORAL SYRUP 9 73037 GUAIFENESIN-CODEINE Inactive PROMETHAZINE-CODEINE 6.25-10 MG/5ML ORAL SYRUP 1 tsp b y mouth every 6 hours if needed for cough PROMETHAZINE-CODEINE 6.25-10 MG/5ML ORAL SYRUP 280401 PROMETHAZINE-CODEINE Inactive CHERATUSSIN AC 100-10 MG/5ML ORAL SYRUP 1 tsp by mouth every 4 hours as needed for cough CHERATUSSIN AC 100-10 MG/5ML ORAL SYRUP 9 93613 GUAIFENESIN-CODEINE Inactive FLUTICASONE PROPIONATE 50 MCG/ACT NASAL SUSPENSION 1 t o 2 sprays each nostril daily FLUTICASONE PROPIONATE 50 MCG/AC T NASAL SUSPENSION 5083090 FLUTICASONE PROPIONATE Inactive PREDNISONE 20 MG ORAL TABLET 3 tab PO qd x 2d, 2 tab P O qd x 2d, 1 tab PO qd x 2d, 1/2 tab PO qd x 2d PREDNISONE 20 MG ORAL TAB LET 325737 PREDNISONE Inactive LEVOFLOXACIN 500 MG ORAL TABLET 1 tab PO daily x 10 days LEVOFLOXACIN 500 MG ORAL TABLET 604699 LEVOFLOXACIN Inactive CYCLOBENZAPRINE HCL 10 MG ORAL TABLET 1 tablet by mouth BID prn had pain CYCLOBENZAPRINE HCL 10 MG ORAL TABLET 104050 CYCLOBENZAPRINE HCL Inactive ZOCOR 40 MG ORAL TABLET 1 tab by mouth daily 4 ZOCOR 40 MG ORAL TABLET 776820 SIMVASTATIN Inactive TUSSIONEX PENNKINETIC ER 10-8 MG/5ML [...] FLUTICASONE PROPIO EFE 50 MCG/ACT NASAL SUSPENSION 0215484 FLUTICASONE PROPIONATE Inactive TUSSIONEX PENNKINETIC ER 10-8 [...] three days PREDNISONE 20 MG ORAL TABLET 337419 PREDNIS ONE Inactive PROAIR HFA 108 (90 BASE) MCG/ACT INHALATION AEROSOL SO LUTION 2 puffs four times a day as needed PROAIR HFA 108 (90 B ASE) MCG/ACT INHALATION AEROSOL SOLUTION ALBUTEROL SULFATE Inactive PREDNISONE 20 MG ORAL TABLET two tabs by mouth today, then one tab by mouth days two and three and four PREDNISONE 20 MG ORAL TAB LET 633180 PREDNISONE Inactive TUSSIONEX PENNKINETIC ER 10-8 MG/5ML [...] bid 04/20 TOPAMAX 100 MG ORAL TABLET 846016 TOPIRAMATE Inactive CYMBALTA 30 MG ORAL CAPSULE DELAYED RELEASE PARTICLES 1 cap by mouth daily for depression CYMBALTA 30 MG ORAL CAPSULE DELAYED RELEASE PARTICLES 705214 DULOXETINE HCL Inactive ZITHROMAX Z-REYNA 250 MG ORAL TABLET 2 today, then 1 daily for 4 d ays ZITHROMAX Z-REYNA 250 MG ORAL TABLET 344817 AZITHROMYCIN Inactive CEFDINIR 300 MG ORAL CAPSULE by mouth twice a day 2010 CEFDINIR 300 MG ORAL CAPSULE 20020704 CEFDINIR Inactive CEFDINIR 300 MG ORAL CAPSULE by mouth twice a day 2010 CEFDINIR 300 MG ORAL CAPSULE 467326 CEFDINIR Inactive CEFDINIR 300 MG ORAL CAPSULE by mouth twice a day 2010 CEFDINIR 300 MG ORAL CAPSULE 897002 CEFDINIR Inactive CEFDINIR 300 MG ORAL CAPSULE by mouth twice a day 2011 CEFDINIR 300 MG ORAL CAPSULE 923176 CEFDINIR Inactive ZITHROMAX 250 MG ORAL TABLET 2 po today, then 1 po q days 2-5 20 03/07/07 ZITHROMAX 250 MG ORAL TABLET 503599 AZITHROMYCIN Liberal ctive CEFDINIR 300 MG ORAL CAPSULE by mouth twice a day 2011 CEFDINIR 300 MG ORAL CAPSULE 694986 CEFDINIR Inactive PREDNISONE 20 MG ORAL TABLET 2 tabs daily for 3 days, 1 tab daily for 3 days, 1/2 tab daily for 2 days PREDNISONE 20 MG ORAL T ABLET 059804 PREDNISONE Inactive AVELOX 400 MG ORAL TABLET 1 tab by mouth daily AVELOX 400 MG ORAL TABLET 392331 MOXIFLOXACIN HCL Inactive AVELOX 400 MG ORAL TABLET 1 tab by mouth daily AVELOX 400 MG ORAL TABLET 408128 MOXIFLOXACIN HCL Inactive PREDNISONE 20 MG ORAL TABLET Take 3 tabs daily for 3 d ays, 2 tabs daily for 3 days, 1 tab daily for 3 days, 1/2 tab daily for 3 days 11/07 PREDNISONE 20 MG ORAL TABLET 107484 PREDNISONE Inactive LEVAQUIN 500 MG ORAL TABLET take one po QD LEVAQUIN 500 MG ORAL TABLET 142224 LEVOFLOXACIN Inactive AZITHROMYCIN 250 MG ORAL TABLET 2 po qd x 1 day, then 1 po q d x 4 days AZITHROMYCIN 250 MG ORAL TABLET 194857 AZITHROMY GIOVANNI Inactive MEDROL 4 MG ORAL TABLET THERAPY PACK 6 tabs on day 1, 5 tabs on day 2, 4 tabs on day 3, 3 tabs on day 4, 2 tabs on day 5, 1 tab on day 6 2013 MEDROL 4 MG ORAL TABLET THERAPY PACK 798026 METHYLPREDNISOLONE Liberal ctive CHERATUSSIN AC 100-10 MG/5ML ORAL SYRUP 5ml po q6hr PRN Cough 20 13/04/14 CHERATUSSIN AC 100-10 MG/5ML ORAL SYRUP 618646 GUAIFENE SIN-CODEINE Inactive TRIAMCINOLONE ACETONIDE 0.1 % EXTERNAL CREAM apply three roger es daily prn rash TRIAMCINOLONE ACETONIDE 0.1 % EXTERNAL CREAM 101 4314 TRIAMCINOLONE ACETONIDE Inactive AZITHROMYCIN 250 MG ORAL TABLET 2 po qd x 1 day, then 1 po q d x 4 days AZITHROMYCIN 250 MG ORAL TABLET 850644 AZITHROMY GIOVANNI Inactive MEDROL 4 MG ORAL TABLET THERAPY PACK 6 pills x 1 day, then 5 pills x 1 day then 4 pills x 1 day, then 3 pills x 1 day, then 2 pills x 1 day, then 1 pill x 1 day, then stop MEDROL 4 MG ORAL TABLET THERAPY PACK 017620 METHYLPREDNISOLONE Inactive AMOXICILLIN 500 MG ORAL CAPSULE 1 tab by mouth 3 times daily x 10 days AMOXICILLIN 500 MG ORAL CAPSULE 083316 AMOXICILL IN Inactive AMOXICILLIN 500 MG ORAL CAPSULE 1 tab by mouth 3 times daily x 10 days AMOXICILLIN 500 MG ORAL CAPSULE 463691 AMOXICILL IN Inactive ZITHROMAX 250 MG ORAL TABLET 2 po today, then 1 po q days 2-5 20 12/08/14 ZITHROMAX 250 MG ORAL TABLET 079118 AZITHROMYCIN Greer ctive AUGMENTIN 875-125 MG ORAL TABLET 1 po BID x 10 days 20 13/01/20 AUGMENTIN 875-125 MG ORAL TABLET 143684 AMOXICILLIN-POT CLAVULANATE Inactive ZITHROMAX Z-REYNA 250 MG ORAL TABLET 2 today, then 1 daily for 4 d ays ZITHROMAX Z-REYNA 250 MG ORAL TABLET 776372 AZITHROMYCIN Inactive ZITHROMAX 250 MG ORAL TABLET 2 po today, then 1 po q days 2-5 20 14/03/21 ZITHROMAX 250 MG ORAL TABLET 053829 AZITHROMYCIN Greer ctive ZITHROMAX Z-REYNA 250 MG ORAL TABLET 2 today, then 1 daily for 4 d ays ZITHROMAX Z-REYNA 250 MG ORAL TABLET 272194 AZITHROMYCIN Inactive CEFDINIR 300 MG ORAL CAPSULE 1 po BID x 10 days 06/21 CEFDINIR 300 MG ORAL CAPSULE 992775 CEFDINIR Inactive ZITHROMAX 250 MG ORAL TABLET 2 po today, then 1 po q days 2-5 20 13/08/10 ZITHROMAX 250 MG ORAL TABLET 308524 AZITHROMYCIN Liberal ctive LEVAQUIN 500 MG ORAL TABLET 1 tablet by mouth daily 13/09/24 LEVAQUIN 500 MG ORAL TABLET 418452 LEVOFLOXACIN Inactive SINGULAIR 10 MG ORAL TABLET 1 po qday for allergies 20 14/01/12 SINGULAIR 10 MG ORAL TABLET 405553 MONTELUKAST SODIUM Inactive AMOXICILLIN 500 MG ORAL CAPSULE 2 po BID x 10 days 201 09/29/08 AMOXICILLIN 500 MG ORAL CAPSULE 958569 AMOXICILLIN Inactive PREDNISONE 20 MG ORAL TABLET 2 tabs daily for 3 days, 1 tab daily for 3 days, 1/2 tab daily for 2 days PREDNISONE 20 MG ORAL T ABLET 263798 PREDNISONE Inactive ZITHROMAX Z-REYNA 250 MG ORAL TABLET 2 today, then 1 daily for 4 d ays ZITHROMAX Z-REYNA 250 MG ORAL TABLET 361990 AZITHROMYCIN Inactive PREDNISONE 20 MG ORAL TABLET 2 tabs daily for 3 days, 1 tab daily for 3 days, 1/2 tab daily for 2 days PREDNISONE 20 MG ORAL T ABLET 500510 PREDNISONE Inactive ZITHROMAX 250 MG ORAL TABLET 2 po today, then 1 po q days 2-5 20 14/09/04 ZITHROMAX 250 MG ORAL TABLET 587662 AZITHROMYCIN Greer ctive AMOXICILLIN 500 MG ORAL CAPSULE 1 cap by mouth three times a day AMOXICILLIN 500 MG ORAL CAPSULE 459326 AMOXICILLIN Inactive TERBINAFINE HCL 250 MG ORAL TABLET 1 qDay for nail fungus 7 TERBINAFINE HCL 250 MG ORAL TABLET 454823 TERBINAFINE HCL Inact nael AUGMENTIN 875-125 MG ORAL TABLET 1 po BID x 10 days 16/03/22 AUGMENTIN 875-125 MG ORAL TABLET 250420 AMOXICILLIN-POT CLAVULANATE Inactive PREDNISONE 20 MG ORAL TABLET 2 po qd x 5 days PREDNISONE 20 MG ORAL TABLET 027271 PREDNISONE Inactive AZITHROMYCIN 250 MG ORAL TABLET 2 po qd x 1 day, then 1 po q d x 4 days AZITHROMYCIN 250 MG ORAL TABLET 882146 AZITHROMY GIOVANNI Inactive PREDNISONE 50 MG ORAL TABLET Take 50 mg dialy for 6 day s 7 PREDNISONE 50 MG ORAL TABLET 954184 PREDNISONE Inactive AUGMENTIN 875-125 MG ORAL TABLET 1 po BID x 10 days 18/04/16 AUGMENTIN 875-125 MG ORAL TABLET 707876 AMOXICILLIN-POT CLAVULANATE Inactive DOXYCYCLINE HYCLATE 100 MG ORAL CAPSULE 1 cap by mouth twice latasha ly DOXYCYCLINE HYCLATE 100 MG ORAL CAPSULE 9981508 DOXYCYCL INE HYCLATE Inactive PREDNISONE 20 MG ORAL TABLET Take 2 tabs day 1 and 2 and 1 t ab days 3 and 4 PREDNISONE 20 MG ORAL TABLET 475938 PREDNISONE Inactive Vital Signs Date Name Value [...] Report: Basic Metabolic Panel - Chem istry blood glucose 103 mg/dL 65-95 carbon dioxide, venous blood 29.4 mmol/L 21.0-32 .0 chloride, serum 102 mmol/L 98-107 potassium, serum 3.8 mmol/L 3.5-5.2 sodium, serum 139 mmol/L 250-611 3322/10/12 Estimated Glomerular Filtration Rate (calc) 62 (?) mL/min/1.73m2 = OR > 60 mL/min creatinine, serum 0.97 mg/dL 0.60-1.30 urea nitrogen, blood 10 mg/dL 7-18 calcium, serum 8.8 mg/dL 8.5-10.1 Encounters Code Encounter Date Provider Facility CPT-57636 [id number] Vst-Est Level IV 08:41:[address] Carlton Hu MD [facility] CPT-84671 Level 3 Est. Patient 09:46:49 FLIGHT SIMULATOR TEACHER David lion [facility] CPT-39664 [id number] Vst-Est Level III 11:12:16 CDT Yanet Bess DO [facility] CPT-29779 Level 3 Est. Patient 11:34:49 FLIGHT SIMULATOR TEACHER Perez Mora MD [facility] CPT-86397 Level 4 Est. Patient 09:51:32 FLIGHT SIMULATOR TEACHER Carlton rich MD [facility] CPT-52259 Level 3 Est. Patient 10:26:00 FLIGHT SIMULATOR TEACHER Elise stephenson [facility] CPT-00894 Level 3 Est. Patient 13:35:41 FLIGHT SIMULATOR TEACHER Carlton rich MD [facility] CPT-23271 Level 3 Est. Patient 10:03:52 FLIGHT SIMULATOR TEACHER Carlton rich MD [facility] CPT-62371 Level 3 Est. Patient 12:17:50 CDT Hugo Restrepo MD -[id number] Level 3 Est. Patient 13:42:38 CDT Elise Are [facility] CPT-76607 Level 3 Est. Patient 13:23:51 CDT Diya cobian [facility] CPT-21609 Level 3 Est. Patient 14:22:19 FLIGHT SIMULATOR TEACHER Astridgreer Mariana cobian [facility] CPT-57576 Level 3 Est. Patient 10:11:46 CDT Carlton rich MD [facility] CPT-12342 Level 3 Est. Patient 17:29:43 CDT Elise Are [facility] CPT-92285 Level 3 Est. Patient 11:58:06 CDT Elise Are [facility] CPT-73439 Level 4 Est. Patient 14:36:51 CDT Carlton rich MD [facility] CPT-93669 Level 3 Est. Patient 18:16:00 FLIGHT SIMULATOR TEACHER Blaine HERNANDEZ [facility] CPT-94006 Level 3 Est. Patient 09:45:49 FLIGHT SIMULATOR TEACHER Carlton rich MD [facility] CPT-87242 Level 3 Est. Patient 13:19:20 CDT Carlton rich MD [facility] CPT-43123 Level 3 Est. Patient 13:06:43 CDT Ridge tam DO [facility] CPT-95588 Level 3 Est. Patient 10:03:07 CDT Perez Mora MD [facility] CPT-40288 Level 3 Est. Patient 19:50:35 FLIGHT SIMULATOR TEACHER Carlton rich MD [facility] CPT-68538 Level 4 Est. Patient 18:05:01 FLIGHT SIMULATOR TEACHER Carlton rich MD [facility] CPT-95862 Level 3 Est. Patient 10:45:55 FLIGHT SIMULATOR TEACHER Hugo Restrepo MD [facility] CPT-41337 Level 3 Est. Patient 14:12:49 CDT Griffin HERNANDEZ [facility] CPT-10932 Level 3 Est. Patient 17:37:24 CDT Carlton rich MD [facility] CPT-16483 Level 3 Est. Patient 16:51:54 CDT Carlton rich MD [facility] CPT-13204 Level 3 Est. Patient 12:18:11 CDT Hugo Restrepo MD [facility] CPT-72069 Level 3 Est. Patient 11:30:25 CDT Marcy crisostomo MD PhD [facility] CPT-12433 Level 3 Est. Patient 12:00:47 FLIGHT SIMULATOR TEACHER Carlton rich MD [facility] CPT-74736 Level 3 Est. Patient 16:31:06 FLIGHT SIMULATOR TEACHER Carlton rich MD [facility] CPT-21357 Level 3 Est. Patient 16:23:24 FLIGHT SIMULATOR TEACHER Ridge tam [facility] CPT-98603 Level 3 Est. Patient 12:34:12 CDT Carlton rich MD [facility] CPT-98884 Level 2 Est. Patient 15:43:33 CDT Robi armstrong MD [facility] CPT-76530 Level 4 Est. Patient 14:04:44 CDT Carlton rich MD [facility] CPT-19037 Level 3 Est. Patient 05:47:59 CDT Ridge tam [facility] CPT-31778 Level 3 Est. Patient 13:12:53 FLIGHT SIMULATOR TEACHER Carlton rich MD [facility] CPT-04257 Level 3 Est. Patient 14:26:53 CDT Hugo Restrepo MD [facility] Procedures Code Procedure Name Date Entry Date Standard Desc ription CPT-000 Give Appropriate Flu Vaccine 14:14:31 CDT 2 014/10/23 CPT-J1040 Depo Medrol 80 mg (Methyl Prednisolone A cetate) 10:42:44 CDT CPT-J1100 Decadron 8mg (Dexamethasone) 10:42:44 CDT 2 CPT-J0696 Rocephin 1gm Inj Solr 14:32:13 CDT CPT-J1020 Depo Medrol 60 mg (Methyl Prednisolone A cetate) 14:32:13 CDT CPT-J1100 Decadron 6mg (Dexamethasone) 14:32:13 CDT 2 CPT-28374 Hip bilat min 2V w AP pelvis 13:16:20 CDT 2 CPT-19896 Pelvis only 13:07:33 CDT CPT-57678 Spec Collection and Handling Fee 11:25:12 C DT CPT-74058 Fluzone Quadrivalent Intramuscular Suspe nsion 0.5 ML 14:31:55 CDT CPT-98586 Abx/Therapy Injection 13:28:47 FLIGHT SIMULATOR TEACHER CPT-J2930 Solu Medrol 125 mg (Methyl Prednisolone Sodium Succinate) 12:00:47 FLIGHT SIMULATOR TEACHER CPT-27069 Venipuncture Draw Fee 11:33:31 CDT CPT-33949 EKG Trac and Interp 11:21:09 CDT CPT-18007 Chest 2V Frontal and Lat 11:21:09 CDT 12/15 CPT-53779 Venipuncture Draw Fee 08:02:34 CDT CPT-39305 Chest 2V Frontal and Lat 05:47:59 CDT 06/05
--- OUTSIDE RECORDS SUMMARY | 2019-10-08 09:08 | XMS REPORT | Clinical Summary ---
Author Author Caitlin, Juliana Martinez Organization [facility] Address Unknown Phone Unavailable Allergies, [...] Rosa MD P HEALTH SCREENING ICD-V70.0 Inactive Maryc ya MD PhD CHEST WALL PAIN, ACUTE [...] by mouth daily for depression DULOXETINE HCL 45732920676 No Longer Active Carlton Hu MD Active CYMBALTA 60 MG ORAL CAPSULE DELAYED RELEASE PARTICLES 1 cap by mouth daily for mood and pain DULOXETINE HCL 98231579722 Active Carlton Hu MD Active TUSSIONEX PENNKINETIC ER 10-8 MG/5ML ORAL SUSPENSION E XTENDED RELEASE 5ml po q12hr PRN Cough HYDROCOD POLST-CHLORPHEN POLST 13106891000 Active David Marianne DIRECTOR 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 PREDNISONE 20 MG ORAL TABLET Take 2 tabs day 1 and 2 and 1 t ab days 3 and 4 PREDNISONE 52252225709 No Longer Active David Marianne DIRECTOR 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 DOXYCYCLINE HYCLATE 100 MG ORAL CAPSULE 1 cap by mouth twice latasha ly DOXYCYCLINE HYCLATE 58775988263 No Longer Active David Lopes APRN Active TOPAMAX 100 MG ORAL TABLET Take 1 tablet po bid TOPIRAMATE 68398534512 No Longer Active David Marianne 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 TUSSIONEX PENNKINETIC ER 10-8 MG/5ML ORAL SUSPENSION E XTENDED RELEASE 5ml po q12hr PRN Cough HYDROCOD POLST-CHLORPHEN POLST 5 8619486838 No Longer Active David Marianne 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 AUGMENTIN 875-125 MG ORAL TABLET 1 po BID x 10 days 20 18/04/16 AMOXICILLIN-POT CLAVULANATE 60657348947 No Longer Active David Lopes DIRECTOR 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 PREDNISONE 50 MG ORAL TABLET Take 50 mg dialy for 6 day s 7 PREDNISONE 95266755477 No Longer Active David Marianne RICEN Active TUSSIONEX PENNKINETIC ER 10-8 MG/5ML ORAL SUSPENSION E XTENDED RELEASE 5ml po q12hr PRN Cough HYDROCOD POLST-CHLORPHEN POLST 5 8689159821 No Longer Active Cherelle Torres RN Active PREDNISONE 20 MG ORAL TABLET two tabs by mouth today, then one tab by mouth days two and three and four PREDNISONE 57925148840 No Lo nger Active Cherelle Torres RN Active AZITHROMYCIN 250 MG ORAL TABLET 2 po qd x 1 day, then 1 po q d x 4 days AZITHROMYCIN 66873852145 No Longer Active Ridge Bess DO Active PREDNISONE 20 MG ORAL TABLET 2 po qd x 5 days P REDNISONE 66690060116 No Longer Active Perez Mora MD Active PROAIR HFA 108 (90 BASE) MCG/ACT INHALATION AEROSOL SO LUTION 2 puffs four times a day as needed ALBUTEROL SULFATE 19292764182 No Long er Active Becky AGUILARA Active ASPIRIN 81 MG ORAL TABLET 1 po qd ASPIRIN 15905985642 Active Carlton Hu MD Active PREDNISONE 20 MG ORAL TABLET 1 tab twice daily for 3 d ay, then one daily for three days PREDNISONE 75570073454 No Longer Active Carlton Hu MD Active AUGMENTIN 875-125 MG ORAL TABLET 1 po BID x 10 days 16/03/22 AMOXICILLIN-POT CLAVULANATE 02566952666 No Longer Active Elise Garcia APRN Active TERBINAFINE HCL 250 MG ORAL TABLET 1 qDay for nail fungus 7 TERBINAFINE HCL 35069981503 No Longer Active Carlton Hu MD A ctive AMOXICILLIN 500 MG ORAL CAPSULE 1 cap by mouth three times a day AMOXICILLIN 99006358504 No Longer Active Carlton Hu MD Active ELMIRON 100 MG ORAL CAPSULE 2 tablets in the am and 1 tablet at hs PENTOSAN POLYSULFATE SODIUM 08150036183 No Longer Active Robert Hu MD Active MUCINEX D 60-600 MG ORAL TABLET EXTENDED RELEASE 12 HOUR 1 t ab po q am PSEUDOEPHEDRINE-GUAIFENESIN 29063043769 No Longer Act nael Carlton Hu MD Active MUCINEX DM MAXIMUM STRENGTH 60-1200 MG ORAL TABLET EXT ENDED RELEASE 12 HOUR 1 tab po q am DEXTROMETHORPHAN-GUAIFENESIN 69439855659 No Longer Active Carlton Hu MD Active TUSSIONEX PENNKINETIC ER 10-8 MG/5ML ORAL SUSPENSION E XTENDED RELEASE 5ml po q12hr PRN Cough HYDROCOD POLST-CHLORPHEN POLST 5 2425540093 No Longer Active Carlton Hu MD Active POTASSIUM CHLORIDE ER 20 MEQ ORAL TABLET EXTENDED RELE ASE Take 1 by mouth 4 times daily for 7 days POTASSIUM CHLORIDE 78504753943 No Longer Active Carlton Hu MD Active ZITHROMAX 250 MG ORAL TABLET 2 po today, then 1 po q days 2-5 20 14/09/04 AZITHROMYCIN 20530856235 No Longer Active Elise Garcia APRN Active TUSSIONEX PENNKINETIC ER 10-8 MG/5ML ORAL SUSPENSION E XTENDED RELEASE 5 ml twice a day as needed for cough HYDROCOD POLST-CHLORPH EN POLST 89274721249 No Longer Active Elise Garcia APRN Active MONTELUKAST SODIUM 10 MG ORAL TABLET 1 po daily for Allergy MONTELUKAST SODIUM 13154766874 Active Carlton Hu MD Ac tive TUSSIONEX PENNKINETIC ER 10-8 MG/5ML ORAL SUSPENSION E XTENDED RELEASE 5ml po q12hr PRN Cough HYDROCOD POLST-CHLORPHEN POLST 5 2199796319 No Longer Active Hugo Restrepo MD Active GABAPENTIN 100 MG ORAL CAPSULE 1 po BID for fibromyalgia GABAPENTIN 65085038242 Active ALFREDO Holly Active LYRICA 100 MG ORAL CAPSULE Take 1 tab po BID for fibromyalgia 20 11/08/21 PREGABALIN 40864504867 No Longer Active Elise Garcia APRN A ctive PREDNISONE 20 MG ORAL TABLET 2 tabs daily for 3 days, 1 tab daily for 3 days, 1/2 tab daily for 2 days PREDNISONE 06146399067 No Longer Active Astridina Gege KHAN Active TUSSIONEX PENNKINETIC ER 10-8 MG/5ML ORAL SUSPENSION E XTENDED RELEASE 5 mL PO q 12 hrs PRN cough HYDROCOD POLST-CHLORPHEN POLST 103754 75953 No Longer Active Jillina Frazell DIRECTOR 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 FLUTICASONE PROPIONATE 50 MCG/ACT NASAL SUSPENSION 2 s prays each nostril daily until bottle is empty FLUTICASONE PROPIONATE 052223962 99 No Longer Active Jillina Frazell DIRECTOR 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 ASMANEX 60 METERED DOSES 220 MCG/INH INHALATION AEROSO L POWDER BREATH ACTIVATED 1 puff bid with rinse after MOMETASONE FUROATE 9358199 4102 No Longer Active Jillina Frazell DIRECTOR 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 ZITHROMAX Z-REYNA 250 MG ORAL TABLET 2 today, then 1 daily for 4 d ays AZITHROMYCIN 73975042883 No Longer Active Elise Garcia APRN Active TUSSIONEX PENNKINETIC ER 10-8 MG/5ML ORAL SUSPENSION E XTENDED RELEASE 5ml po q12hr PRN Cough HYDROCOD POLST-CHLORPHEN POLST 5 6872973559 No Longer Active Elise Garcia APRN Active PREDNISONE 20 MG ORAL TABLET 2 tabs daily for 3 days, 1 tab daily for 3 days, 1/2 tab daily for 2 days PREDNISONE 54906492038 No Longer Active Diya De Guzman APRN Active AMOXICILLIN 500 MG ORAL CAPSULE 2 po BID x 10 days 201 09/29/08 AMOXICILLIN 00514148656 No Longer Active Diya De Guzman APRN Act nael SINGULAIR 10 MG ORAL TABLET 1 po qday for allergies 20 14/01/12 MONTELUKAST SODIUM 21911756585 No Longer Active Carlton Hu MD Active LEVAQUIN 500 MG ORAL TABLET 1 tablet by mouth daily 20 13/09/24 LEVOFLOXACIN 66095114697 No Longer Active Carlton Hu MD Acti ve FLUTICASONE PROPIONATE 50 MCG/ACT NASAL SUSPENSION 2 s prays each nostril daily for 2 weeks, then 1 spray each nostril daily. FLUTICASONE PROPIONATE 10501049489 Active Carlton Hu MD Active ZITHROMAX 250 MG ORAL TABLET 2 po today, then 1 po q days 2-5 20 13/08/10 AZITHROMYCIN 06101111597 No Longer Active Elise Garcia APRN Active XANAX 0.5 MG ORAL TABLET one tablet by mouth daily prn anxiety 2015 ALPRAZOLAM 17199632167 Active ALFREDO Holly Active CEFDINIR 300 MG ORAL CAPSULE 1 po BID x 10 days CEFDINIR 72491561063 No Longer Active Carlton Hu MD Active ZOCOR 40 MG ORAL TABLET 1 tab by mouth daily SI MVASTATIN 19568125829 No Longer Active Carlton Hu MD Active CYCLOBENZAPRINE HCL 10 MG ORAL TABLET 1 tablet by mouth BID prn had pain CYCLOBENZAPRINE HCL 70154530915 No Longer Active Jayden Hu MD Active LEVOFLOXACIN 500 MG ORAL TABLET 1 tab PO daily x 10 days LEVOFLOXACIN 43678831770 No Longer Active Carlton Hu MD Acti ve PREDNISONE 20 MG ORAL TABLET 3 tab PO qd x 2d, 2 tab P O qd x 2d, 1 tab PO qd x 2d, 1/2 tab PO qd x 2d PREDNISONE 07818771285 No Lo nger Active Carlton Hu MD Active FLUTICASONE PROPIONATE 50 MCG/ACT NASAL SUSPENSION 1 t o 2 sprays each nostril daily FLUTICASONE PROPIONATE 51413091600 No Longer Ac tive Blaine HERNANDEZ Active CHERATUSSIN AC 100-10 MG/5ML ORAL SYRUP 1 tsp by mouth every 4 hours as needed for cough GUAIFENESIN-CODEINE 62645700811 No Longe r Active Blaine HERNANDEZ Active PROMETHAZINE-CODEINE 6.25-10 MG/5ML ORAL SYRUP 1 tsp b y mouth every 6 hours if needed for cough PROMETHAZINE-CODEINE 13762020058 No Longer Active Blaine HERNANDEZ Active CHERATUSSIN AC 100-10 MG/5ML ORAL SYRUP 1 tsp by mouth every 4 hours as needed for cough GUAIFENESIN-CODEINE 09066443618 No Longe r Active Blaine HERNANDEZ Active ZITHROMAX Z-REYNA 250 MG ORAL TABLET 2 today, then 1 daily for 4 d ays AZITHROMYCIN 73111341702 No Longer Active Columba Raida Act nael ZITHROMAX 250 MG ORAL TABLET 2 po today, then 1 po q days 2-5 20 14/03/21 AZITHROMYCIN 44226980327 No Longer Active Carlton Hu MD Active ZITHROMAX Z-REYNA 250 MG ORAL TABLET 2 today, then 1 daily for 4 d ays AZITHROMYCIN 49562369212 No Longer Active Columba Raida Act nael AUGMENTIN 875-125 MG ORAL TABLET 1 po BID x 10 days 13/01/20 AMOXICILLIN-POT CLAVULANATE 78459021472 No Longer Active Diya Daphnebrayan KHAN Active ZITHROMAX 250 MG ORAL TABLET 2 po today, then 1 po q days 2-5 20 12/08/14 AZITHROMYCIN 58892626868 No Longer Active Carlton Hu MD Active TRAMADOL HCL 50 MG ORAL TABLET 1 po tid with ES Tylenol TRAMADOL HCL 64179984935 Active ALFREDO Holly Active PREMARIN 0.625 MG ORAL TABLET TAKE 1 TAB BY MOUTH DAILY ESTROGENS CONJUGATED 30423177762 No Longer Active Ridge Bess DO A ctive CYMBALTA 30 MG ORAL CAPSULE DELAYED RELEASE PARTICLES 1 cap by mouth daily DULOXETINE HCL 24079867709 No Longer Active Ridge tam DO Active AMOXICILLIN 500 MG ORAL CAPSULE 1 tab by mouth 3 times daily x 10 days AMOXICILLIN 23637120153 No Longer Active Carlton bustamante MD Active AMOXICILLIN 500 MG ORAL CAPSULE 1 tab by mouth 3 times daily x 10 days AMOXICILLIN 28750263124 No Longer Active Carlton bustamante MD Active PROMETHAZINE-CODEINE 6.25-10 MG/5ML ORAL SYRUP 1 tsp b y mouth every 8 hours prn cough PROMETHAZINE-CODEINE 59351719299 No Longer Acti ve Carlton Hu MD Active MEDROL 4 MG ORAL TABLET THERAPY PACK 6 pills x 1 day, then 5 pills x 1 day then 4 pills x 1 day, then 3 pills x 1 day, then 2 pills x 1 day, then 1 pill x 1 day, then stop METHYLPREDNISOLONE 41061120757 No Long er Active Perez Mora MD Active AZITHROMYCIN 250 MG ORAL TABLET 2 po qd x 1 day, then 1 po q d x 4 days AZITHROMYCIN 43846923297 No Longer Active Perez Ambriz MD Active SYMBICORT 160-4.5 MCG/ACT INHALATION AEROSOL 2 puffs bid wit h rinse after BUDESONIDE-FORMOTEROL FUMARATE 68665412278 N o Longer Active Perez Mora MD Active LYRICA 75 MG ORAL CAPSULE TAKE 1 CAPSULE BY MOUTH TWICE DAILY PREGABALIN 74681042793 No Longer Active Carlton Hu MD Acti ve TOPAMAX 25 MG ORAL TABLET 1 qHS x 1 week, then 1 BID x 1 week, then 1 qAM and 2 qHS x 1 week, then 2 BID (migraine prevention) T OPIRAMATE 62870881669 No Longer Active Jerica FUENTES Active TOPAMAX 50 MG ORAL TABLET take 1 tab po BID for migraines. 07/02 TOPIRAMATE 03958491923 No Longer Active Jerica FUENTES Active TRIAMCINOLONE ACETONIDE 0.1 % EXTERNAL CREAM apply three roger es daily prn rash TRIAMCINOLONE ACETONIDE 93783595305 No Longer Active Carlton Hu MD Active PAXIL 40 MG ORAL TABLET take 1 tab po qday for depression 0 PAROXETINE HCL 66557168386 Active Carlton Hu MD Active CHERATUSSIN AC 100-10 MG/5ML ORAL SYRUP 5ml po q6hr PRN Cough 20 13/04/14 GUAIFENESIN-CODEINE 77806391717 No Longer Active Carlton Hu MD Active MEDROL 4 MG ORAL TABLET THERAPY PACK 6 tabs on day 1, 5 tabs on day 2, 4 tabs on day 3, 3 tabs on day 4, 2 tabs on day 5, 1 tab on day 6 2013 METHYLPREDNISOLONE 71978164109 No Longer Active Perez Mora MD Active AZITHROMYCIN 250 MG ORAL TABLET 2 po qd x 1 day, then 1 po q d x 4 days AZITHROMYCIN 69519663594 No Longer Active Perez Ambriz MD Active PROPRANOLOL HCL 60 MG ORAL TABLET 1 PO Q D PROPRANOLOL HCL 26233737241 No Longer Active Perez Mora MD Activ e CHERATUSSIN AC 100-10 MG/5ML ORAL SYRUP take one tsp po Q 6h ours prn cough GUAIFENESIN-CODEINE 35133908774 No Longer Active Zia Mora MD Active AUGMENTIN 875-125 MG ORAL TABLET 1 tab by mouth twice daily with food AMOXICILLIN-POT CLAVULANATE 41054524287 No Longer Act nael Mora MD Active CHERATUSSIN AC 100-10 MG/5ML ORAL SYRUP 1 tsp by mouth every 4 hours as needed for cough GUAIFENESIN-CODEINE 59884940884 No Longe r Active Hugo Restrepo MD Active ACETAMINOPHEN-CODEINE #3 300-30 MG ORAL TABLET 1 PO Q 4-6 HRS DE N PAIN ACETAMINOPHEN-CODEINE 62856704670 No Longer Active Hugo Restrepo MD Active LEVAQUIN 500 MG ORAL TABLET take one po QD LEVO FLOXACIN 45479355020 No Longer Active Griffin HERNANDEZ Active PREDNISONE 20 MG ORAL TABLET Take 3 tabs daily for 3 d ays, 2 tabs daily for 3 days, 1 tab daily for 3 days, 1/2 tab daily for 3 days 11/07 PREDNISONE 73476827466 No Longer Active Carlton Hu MD Acti ve AVELOX 400 MG ORAL TABLET 1 tab by mouth daily MOXIFLOXACIN HCL 44982119301 No Longer Active Carlton Hu MD Active CHERATUSSIN AC 100-10 MG/5ML ORAL SYRUP 1 tsp by mouth every 4 hours as needed for cough GUAIFENESIN-CODEINE 22657308153 No Longe r Active Hugo Restrepo MD Active AVELOX 400 MG ORAL TABLET 1 tab by mouth daily MOXIFLOXACIN HCL 19780805129 No Longer Active Marcy De La Rosa MD PhD Active TERBINAFINE HCL 250 MG ORAL TABLET 1 qDay T ERBINAFINE HCL 38960730741 No Longer Active Marcy De La Rosa MD PhD Active CHERATUSSIN AC 100-10 MG/5ML ORAL SYRUP 1 tsp by mouth every 4 hours as needed for cough GUAIFENESIN-CODEINE 45847035948 No Longe r Active Marcy De La Rosa MD PhD Active AVELOX 400 MG ORAL TABLET 1 tab by mouth daily MOXIFLOXACIN HCL 08559754291 No Longer Active Marcy De La Rosa MD PhD Active HYDROCODONE-ACETAMINOPHEN 5-325 MG ORAL TABLET 1 po q 6hr PRN co ugh HYDROCODONE-ACETAMINOPHEN 11240068157 No Longer Active Marcy De La Rosa MD PhD Active PREDNISONE 20 MG ORAL TABLET 2 tabs daily for 3 days, 1 tab daily for 3 days, 1/2 tab daily for 2 days PREDNISONE 24645996255 No Longer Active Carlton Hu MD Active CEFDINIR 300 MG ORAL CAPSULE by mouth twice a day 2011 CEFDINIR 86404540907 No Longer Active Carlton Hu MD Acti ve HYDROCHLOROTHIAZIDE 25 MG ORAL TABLET 1 TAB PO DAILY HYDROCHLOROTHIAZIDE 07342080714 Active Carlton Hu MD A ctive ACETAMINOPHEN-CODEINE #3 300-30 MG ORAL TABLET 1 tablet po q 4-6 hrs prn pain ACETAMINOPHEN-CODEINE 28148030681 No Longer Active Ridge Bess DO Active ZITHROMAX 250 MG ORAL TABLET 2 po today, then 1 po q days 2-5 20 03/07/07 AZITHROMYCIN 17035719243 No Longer Active Carlton Hu MD Active CHERATUSSIN AC 100-10 MG/5ML ORAL SYRUP take 1 tsp po q4-6 h ours prn cough GUAIFENESIN-CODEINE 68335490730 No Longer Active Jayden Hu MD Active ACETAMINOPHEN-CODEINE #3 300-30 MG ORAL TABLET 1 PO Q 4-6 HR PRN PAIN ACETAMINOPHEN-CODEINE 92198632485 No Longer Active Arnol Hu MD Active LORTAB 7.5-500 MG/15ML ORAL ELIXIR 7.5 ml po q 4 hour prn cough HYDROCODONE-ACETAMINOPHEN 69556636327 No Longer Active Carlton Hu MD Active PREDNISONE 20 MG ORAL TABLET 1 po bid 3 days, then 1 po q day 3 days PREDNISONE 05511373786 No Longer Active Carlton Hu MD Active CEFDINIR 300 MG ORAL CAPSULE by mouth twice a day 2011 CEFDINIR 78650242134 No Longer Active Carlton Hu MD Acti ve CEFDINIR 300 MG ORAL CAPSULE by mouth twice a day 2010 CEFDINIR 62717957609 No Longer Active Carlton Hu MD Acti ve CEFDINIR 300 MG ORAL CAPSULE by mouth twice a day 2010 CEFDINIR 49811430581 No Longer Active Carlton Hu MD Acti ve TESSALON PERLES 100 MG ORAL CAPSULE 1 tablet by mouth 3 times daily as needed for cough BENZONATATE 20735397158 No Longer Active Carlton Hu MD Active CEFDINIR 300 MG ORAL CAPSULE by mouth twice a day 2010 CEFDINIR 62521473645 No Longer Active Carlton Hu MD Acti ve ZITHROMAX Z-REYNA 250 MG ORAL TABLET 2 today, then 1 daily for 4 d ays AZITHROMYCIN 65726049959 No Longer Active Hugo Restrepo MD Active TESSALON PERLES 100 MG ORAL CAPSULE 1 tablet by mouth 3 times daily as needed for cough TESSALON PERLES 100 MG ORAL CAPSULE 40250 7 BENZONATATE Inactive PREDNISONE 20 MG ORAL TABLET 1 po bid 3 days, then 1 po q day 3 days PREDNISONE 20 MG ORAL TABLET 782066 PREDNISONE Greer ctive LORTAB 7.5-500 MG/15ML ORAL [...] cough CHERATUSSIN AC 100-10 MG/5ML ORAL SYRUP 298091 GUAIFENESIN-CODEINE Inactive ACETAMINOPHEN-CODEINE #3 300-30 MG ORAL TABLET 1 tablet po q 4-6 hrs prn pain ACETAMINOPHEN-CODEINE #3 300-30 MG ORAL TABLET ACETAMINOPHEN-CODEINE Inactive HYDROCODONE-ACETAMINOPHEN 5-325 MG ORAL TABLET 1 po q 6hr PRN co ugh HYDROCODONE-ACETAMINOPHEN 5-325 MG ORAL TABLET 626767 HYDROCODONE-ACETAMINOPHEN Inactive AVELOX 400 MG ORAL TABLET 1 tab by mouth daily AVELOX 400 MG ORAL TABLET 977363 MOXIFLOXACIN HCL Inactive CHERATUSSIN AC 100-10 MG/5ML ORAL SYRUP 1 tsp by mouth every 4 hours as needed for cough CHERATUSSIN AC 100-10 MG/5ML ORAL SYRUP 9 33592 GUAIFENESIN-CODEINE Inactive TERBINAFINE HCL 250 MG ORAL TABLET 1 qDay 07/08 TERBINAFINE HCL 250 MG ORAL TABLET 741708 TERBINAFINE HCL Inactive CHERATUSSIN AC 100-10 MG/5ML ORAL SYRUP 1 tsp by mouth every 4 hours as needed for cough CHERATUSSIN AC 100-10 MG/5ML ORAL SYRUP 9 75250 GUAIFENESIN-CODEINE Inactive ACETAMINOPHEN-CODEINE #3 300-30 MG ORAL TABLET 1 PO Q 4-6 HRS DE N PAIN ACETAMINOPHEN-CODEINE #3 300-30 MG ORAL TABLET ACETAMINOPHEN-CODEINE Inactive CHERATUSSIN AC 100-10 MG/5ML ORAL SYRUP 1 tsp by mouth every 4 hours as needed for cough CHERATUSSIN AC 100-10 MG/5ML ORAL SYRUP 9 13480 GUAIFENESIN-CODEINE Inactive AUGMENTIN 875-125 MG ORAL TABLET 1 tab by mouth twice daily with food AUGMENTIN 875-125 MG ORAL TABLET 141352 AMOXICIL MADELINE-POT CLAVULANATE Inactive CHERATUSSIN AC 100-10 MG/5ML ORAL SYRUP take one tsp po Q 6h ours prn cough CHERATUSSIN AC 100-10 MG/5ML ORAL SYRUP 508417 GUAIFENESIN-CODEINE Inactive PROPRANOLOL HCL 60 MG ORAL TABLET 1 PO Q D PROPRANOLOL HCL 60 MG ORAL TABLET 121796 PROPRANOLOL HCL Inactive TOPAMAX 50 MG ORAL TABLET take 1 tab po BID for migraines. 07/02 TOPAMAX 50 MG ORAL TABLET 139409 TOPIRAMATE Inacti ve TOPAMAX 25 MG ORAL TABLET 1 qHS x 1 week, then 1 BID x 1 week, then 1 qAM and 2 qHS x 1 week, then 2 BID (migraine prevention) TOPAMAX 25 MG ORAL TABLET 128110 TOPIRAMATE Inactive LYRICA 75 MG ORAL CAPSULE TAKE 1 CAPSULE BY MOUTH TWICE DAILY LYRICA 75 MG ORAL CAPSULE PREGABALIN Inactive SYMBICORT 160-4.5 MCG/ACT INHALATION AEROSOL 2 puffs bid wit h rinse after SYMBICORT 160-4.5 MCG/ACT INHALATION AEROSOL BUDESONIDE- FORMOTEROL FUMARATE Inactive PROMETHAZINE-CODEINE 6.25-10 MG/5ML ORAL SYRUP 1 tsp b y mouth every 8 hours prn cough PROMETHAZINE-CODEINE 6.25-10 MG/ 5ML ORAL SYRUP 262226 PROMETHAZINE-CODEINE Inactive CYMBALTA 30 MG ORAL CAPSULE DELAYED RELEASE PARTICLES 1 cap by mouth daily CYMBALTA 30 MG ORAL CAPSULE DELAYED RELE ASE PARTICLES 008315 DULOXETINE HCL Inactive PREMARIN 0.625 MG ORAL TABLET TAKE 1 TAB BY MOUTH DAILY PREMARIN 0.625 MG ORAL TABLET ESTROGENS CONJUGATED Inactive CHERATUSSIN AC 100-10 MG/5ML ORAL SYRUP 1 tsp by mouth every 4 hours as needed for cough CHERATUSSIN AC 100-10 MG/5ML ORAL SYRUP 9 35557 GUAIFENESIN-CODEINE Inactive PROMETHAZINE-CODEINE 6.25-10 MG/5ML ORAL SYRUP 1 tsp b y mouth every 6 hours if needed for cough PROMETHAZINE-CODEINE 6.25-10 MG/5ML ORAL SYRUP 292176 PROMETHAZINE-CODEINE Inactive CHERATUSSIN AC 100-10 MG/5ML ORAL SYRUP 1 tsp by mouth every 4 hours as needed for cough CHERATUSSIN AC 100-10 MG/5ML ORAL SYRUP 9 91599 GUAIFENESIN-CODEINE Inactive FLUTICASONE PROPIONATE 50 MCG/ACT NASAL SUSPENSION 1 t o 2 sprays each nostril daily FLUTICASONE PROPIONATE 50 MCG/AC T NASAL SUSPENSION 6973464 FLUTICASONE PROPIONATE Inactive PREDNISONE 20 MG ORAL TABLET 3 tab PO qd x 2d, 2 tab P O qd x 2d, 1 tab PO qd x 2d, 1/2 tab PO qd x 2d PREDNISONE 20 MG ORAL TAB LET 747819 PREDNISONE Inactive LEVOFLOXACIN 500 MG ORAL TABLET 1 tab PO daily x 10 days LEVOFLOXACIN 500 MG ORAL TABLET 552265 LEVOFLOXACIN Inactive CYCLOBENZAPRINE HCL 10 MG ORAL TABLET 1 tablet by mouth BID prn had pain CYCLOBENZAPRINE HCL 10 MG ORAL TABLET 429414 CYCLOBENZAPRINE HCL Inactive ZOCOR 40 MG ORAL TABLET 1 tab by mouth daily 4 ZOCOR 40 MG ORAL TABLET 010001 SIMVASTATIN Inactive TUSSIONEX PENNKINETIC ER 10-8 MG/5ML [...] FLUTICASONE PROPIO EFE 50 MCG/ACT NASAL SUSPENSION 0358947 FLUTICASONE PROPIONATE Inactive TUSSIONEX PENNKINETIC ER 10-8 [...] three days PREDNISONE 20 MG ORAL TABLET 950822 PREDNIS ONE Inactive PROAIR HFA 108 (90 BASE) MCG/ACT INHALATION AEROSOL SO LUTION 2 puffs four times a day as needed PROAIR HFA 108 (90 B ASE) MCG/ACT INHALATION AEROSOL SOLUTION ALBUTEROL SULFATE Inactive PREDNISONE 20 MG ORAL TABLET two tabs by mouth today, then one tab by mouth days two and three and four PREDNISONE 20 MG ORAL TAB LET 772218 PREDNISONE Inactive TUSSIONEX PENNKINETIC ER 10-8 MG/5ML [...] bid 04/20 TOPAMAX 100 MG ORAL TABLET 982642 TOPIRAMATE Inactive CYMBALTA 30 MG ORAL CAPSULE DELAYED RELEASE PARTICLES 1 cap by mouth daily for depression CYMBALTA 30 MG ORAL CAPSULE DELAYED RELEASE PARTICLES 929864 DULOXETINE HCL Inactive ZITHROMAX Z-REYNA 250 MG ORAL TABLET 2 today, then 1 daily for 4 d ays ZITHROMAX Z-REYNA 250 MG ORAL TABLET 933516 AZITHROMYCIN Inactive CEFDINIR 300 MG ORAL CAPSULE by mouth twice a day 2010 CEFDINIR 300 MG ORAL CAPSULE 20020704 CEFDINIR Inactive CEFDINIR 300 MG ORAL CAPSULE by mouth twice a day 2010 CEFDINIR 300 MG ORAL CAPSULE 770102 CEFDINIR Inactive CEFDINIR 300 MG ORAL CAPSULE by mouth twice a day 2010 CEFDINIR 300 MG ORAL CAPSULE 817348 CEFDINIR Inactive CEFDINIR 300 MG ORAL CAPSULE by mouth twice a day 2011 CEFDINIR 300 MG ORAL CAPSULE 010131 CEFDINIR Inactive ZITHROMAX 250 MG ORAL TABLET 2 po today, then 1 po q days 2-5 20 03/07/07 ZITHROMAX 250 MG ORAL TABLET 594465 AZITHROMYCIN Mcintosh ctive CEFDINIR 300 MG ORAL CAPSULE by mouth twice a day 2011 CEFDINIR 300 MG ORAL CAPSULE 355790 CEFDINIR Inactive PREDNISONE 20 MG ORAL TABLET 2 tabs daily for 3 days, 1 tab daily for 3 days, 1/2 tab daily for 2 days PREDNISONE 20 MG ORAL T ABLET 368657 PREDNISONE Inactive AVELOX 400 MG ORAL TABLET 1 tab by mouth daily AVELOX 400 MG ORAL TABLET 934925 MOXIFLOXACIN HCL Inactive AVELOX 400 MG ORAL TABLET 1 tab by mouth daily AVELOX 400 MG ORAL TABLET 838636 MOXIFLOXACIN HCL Inactive PREDNISONE 20 MG ORAL TABLET Take 3 tabs daily for 3 d ays, 2 tabs daily for 3 days, 1 tab daily for 3 days, 1/2 tab daily for 3 days 11/07 PREDNISONE 20 MG ORAL TABLET 983574 PREDNISONE Inactive LEVAQUIN 500 MG ORAL TABLET take one po QD LEVAQUIN 500 MG ORAL TABLET 781047 LEVOFLOXACIN Inactive AZITHROMYCIN 250 MG ORAL TABLET 2 po qd x 1 day, then 1 po q d x 4 days AZITHROMYCIN 250 MG ORAL TABLET 576677 AZITHROMY GIOVANNI Inactive MEDROL 4 MG ORAL TABLET THERAPY PACK 6 tabs on day 1, 5 tabs on day 2, 4 tabs on day 3, 3 tabs on day 4, 2 tabs on day 5, 1 tab on day 6 2013 MEDROL 4 MG ORAL TABLET THERAPY PACK 384218 METHYLPREDNISOLONE Mcintosh ctive CHERATUSSIN AC 100-10 MG/5ML ORAL SYRUP 5ml po q6hr PRN Cough 20 13/04/14 CHERATUSSIN AC 100-10 MG/5ML ORAL SYRUP 022992 GUAIFENE SIN-CODEINE Inactive TRIAMCINOLONE ACETONIDE 0.1 % EXTERNAL CREAM apply three roger es daily prn rash TRIAMCINOLONE ACETONIDE 0.1 % EXTERNAL CREAM 101 4314 TRIAMCINOLONE ACETONIDE Inactive AZITHROMYCIN 250 MG ORAL TABLET 2 po qd x 1 day, then 1 po q d x 4 days AZITHROMYCIN 250 MG ORAL TABLET 369806 AZITHROMY GIOVANNI Inactive MEDROL 4 MG ORAL TABLET THERAPY PACK 6 pills x 1 day, then 5 pills x 1 day then 4 pills x 1 day, then 3 pills x 1 day, then 2 pills x 1 day, then 1 pill x 1 day, then stop MEDROL 4 MG ORAL TABLET THERAPY PACK 821115 METHYLPREDNISOLONE Inactive AMOXICILLIN 500 MG ORAL CAPSULE 1 tab by mouth 3 times daily x 10 days AMOXICILLIN 500 MG ORAL CAPSULE 429045 AMOXICILL IN Inactive AMOXICILLIN 500 MG ORAL CAPSULE 1 tab by mouth 3 times daily x 10 days AMOXICILLIN 500 MG ORAL CAPSULE 780433 AMOXICILL IN Inactive ZITHROMAX 250 MG ORAL TABLET 2 po today, then 1 po q days 2-5 20 12/08/14 ZITHROMAX 250 MG ORAL TABLET 199883 AZITHROMYCIN Greer ctive AUGMENTIN 875-125 MG ORAL TABLET 1 po BID x 10 days 20 13/01/20 AUGMENTIN 875-125 MG ORAL TABLET 015514 AMOXICILLIN-POT CLAVULANATE Inactive ZITHROMAX Z-REYNA 250 MG ORAL TABLET 2 today, then 1 daily for 4 d ays ZITHROMAX Z-REYNA 250 MG ORAL TABLET 807353 AZITHROMYCIN Inactive ZITHROMAX 250 MG ORAL TABLET 2 po today, then 1 po q days 2-5 20 14/03/21 ZITHROMAX 250 MG ORAL TABLET 299491 AZITHROMYCIN Greer ctive ZITHROMAX Z-REYNA 250 MG ORAL TABLET 2 today, then 1 daily for 4 d ays ZITHROMAX Z-REYNA 250 MG ORAL TABLET 427579 AZITHROMYCIN Inactive CEFDINIR 300 MG ORAL CAPSULE 1 po BID x 10 days 06/21 CEFDINIR 300 MG ORAL CAPSULE 626927 CEFDINIR Inactive ZITHROMAX 250 MG ORAL TABLET 2 po today, then 1 po q days 2-5 20 13/08/10 ZITHROMAX 250 MG ORAL TABLET 511924 AZITHROMYCIN [facility] ctive LEVAQUIN 500 MG ORAL TABLET 1 tablet by mouth daily 13/09/24 LEVAQUIN 500 MG ORAL TABLET 540693 LEVOFLOXACIN Inactive SINGULAIR 10 MG ORAL TABLET 1 po qday for allergies 20 14/01/12 SINGULAIR 10 MG ORAL TABLET 684971 MONTELUKAST SODIUM Inactive AMOXICILLIN 500 MG ORAL CAPSULE 2 po BID x 10 days 201 09/29/08 AMOXICILLIN 500 MG ORAL CAPSULE 091999 AMOXICILLIN Inactive PREDNISONE 20 MG ORAL TABLET 2 tabs daily for 3 days, 1 tab daily for 3 days, 1/2 tab daily for 2 days PREDNISONE 20 MG ORAL T ABLET 409661 PREDNISONE Inactive ZITHROMAX Z-REYNA 250 MG ORAL TABLET 2 today, then 1 daily for 4 d ays ZITHROMAX Z-REYNA 250 MG ORAL TABLET 744754 AZITHROMYCIN Inactive PREDNISONE 20 MG ORAL TABLET 2 tabs daily for 3 days, 1 tab daily for 3 days, 1/2 tab daily for 2 days PREDNISONE 20 MG ORAL T ABLET 226473 PREDNISONE Inactive ZITHROMAX 250 MG ORAL TABLET 2 po today, then 1 po q days 2-5 20 14/09/04 ZITHROMAX 250 MG ORAL TABLET 577463 AZITHROMYCIN Greer ctive AMOXICILLIN 500 MG ORAL CAPSULE 1 cap by mouth three times a day AMOXICILLIN 500 MG ORAL CAPSULE 764433 AMOXICILLIN Inactive TERBINAFINE HCL 250 MG ORAL TABLET 1 qDay for nail fungus 7 TERBINAFINE HCL 250 MG ORAL TABLET 933801 TERBINAFINE HCL Inact nael AUGMENTIN 875-125 MG ORAL TABLET 1 po BID x 10 days 16/03/22 AUGMENTIN 875-125 MG ORAL TABLET 051110 AMOXICILLIN-POT CLAVULANATE Inactive PREDNISONE 20 MG ORAL TABLET 2 po qd x 5 days PREDNISONE 20 MG ORAL TABLET 336575 PREDNISONE Inactive AZITHROMYCIN 250 MG ORAL TABLET 2 po qd x 1 day, then 1 po q d x 4 days AZITHROMYCIN 250 MG ORAL TABLET 473856 AZITHROMY GIOVANNI Inactive PREDNISONE 50 MG ORAL TABLET Take 50 mg dialy for 6 day s 7 PREDNISONE 50 MG ORAL TABLET 180623 PREDNISONE Inactive AUGMENTIN 875-125 MG ORAL TABLET 1 po BID x 10 days 18/04/16 AUGMENTIN 875-125 MG ORAL TABLET 964369 AMOXICILLIN-POT CLAVULANATE Inactive DOXYCYCLINE HYCLATE 100 MG ORAL CAPSULE 1 cap by mouth twice latasha ly DOXYCYCLINE HYCLATE 100 MG ORAL CAPSULE 6370266 DOXYCYCL INE HYCLATE Inactive PREDNISONE 20 MG ORAL TABLET Take 2 tabs day 1 and 2 and 1 t ab days 3 and 4 PREDNISONE 20 MG ORAL TABLET 754412 PREDNISONE Inactive Vital Signs Date Name Value [...] - Chem istry sodium, serum 139 mmol/L 081-361 8670/10/12 potassium, serum 3.8 mmol/L 3.5-5.2 chloride, serum 102 mmol/L 98-107 carbon dioxide, venous blood 29.4 mmol/L 21.0-32 .0 blood glucose 103 mg/dL 65-95 calcium, serum 8.8 mg/dL 8.5-10.1 urea nitrogen, blood 10 mg/dL 7-18 creatinine, serum 0.97 mg/dL 0.60-1.30 Estimated Glomerular Filtration Rate (calc) 62 (?) mL/min/1.73m2 = OR > 60 mL/min Encounters Code Encounter Date Provider Facility CPT-42160 [id number] Vst-Est Level IV 08:41:[address] Carlton Hu MD [facility] CPT-32203 Level 3 Est. Patient 09:46:49 MACHINE TOOL DRESSER David lion [facility]-21541 [id number] Vst-Est Level III 11:12:16 CDT Yanet Bess DO [facility] CPT-55899 Level 3 Est. Patient 11:34:49 MACHINE TOOL DRESSER Perez Mora MD [facility] CPT-67782 Level 4 Est. Patient 09:51:32 MACHINE TOOL DRESSER Carlton rich MD [facility] CPT-01217 Level 3 Est. Patient 10:26:00 MACHINE TOOL DRESSER Elise stephenson [facility] CPT-26826 Level 3 Est. Patient 13:35:41 MACHINE TOOL DRESSER Carlton rich MD [facility]-25922 Level 3 Est. Patient 10:03:52 MACHINE TOOL DRESSER Carlton rich MD [facility] CPT-12399 Level 3 Est. Patient 12:17:50 CDT Hugo Restrepo MD [facility]-32137 Level 3 Est. Patient 13:42:38 CDT Elise Are [facility] CPT-26566 Level 3 Est. Patient 13:23:51 CDT Diya cobian [facility] CPT-70760 Level 3 Est. Patient 14:22:19 MACHINE TOOL DRESSER Astridgreer Mariana cobian [facility] CPT-63533 Level 3 Est. Patient 10:11:46 CDT Carlton rich MD [facility] CPT-09637 Level 3 Est. Patient 17:29:43 CDT Elise Are [facility] CPT-90574 Level 3 Est. Patient 11:58:06 CDT Elise Are [facility] CPT-14663 Level 4 Est. Patient 14:36:51 CDT Carlton rich MD [facility] CPT-72715 Level 3 Est. Patient 18:16:00 MACHINE TOOL DRESSER Blaine HERNANDEZ [facility] CPT-70257 Level 3 Est. Patient 09:45:49 MACHINE TOOL DRESSER Carlton rich MD [facility] CPT-04873 Level 3 Est. Patient 13:19:20 CDT Carlton rich MD [facility] CPT-53580 Level 3 Est. Patient 13:06:43 CDT Ridge tam DO [facility] CPT-32321 Level 3 Est. Patient 10:03:07 CDT Perez Mora MD [facility] CPT-12109 Level 3 Est. Patient 19:50:35 MACHINE TOOL DRESSER Carlton rich MD [facility] CPT-38510 Level 4 Est. Patient 18:05:01 MACHINE TOOL DRESSER Carlton rich MD [facility] CPT-65586 Level 3 Est. Patient 10:45:55 MACHINE TOOL DRESSER Hugo Restrepo MD [facility] CPT-02109 Level 3 Est. Patient 14:12:49 CDT Griffin HERNANDEZ [facility] CPT-86768 Level 3 Est. Patient 17:37:24 CDT Carlton rich MD [facility] CPT-48258 Level 3 Est. Patient 16:51:54 CDT Carlton rich MD [facility] CPT-12820 Level 3 Est. Patient 12:18:11 CDT Hugo Restrepo MD [facility] CPT-45948 Level 3 Est. Patient 11:30:25 CDT Marcy crisostomo MD PhD [facility] CPT-13859 Level 3 Est. Patient 12:00:47 MACHINE TOOL DRESSER Carlton rich MD [facility] CPT-68956 Level 3 Est. Patient 16:31:06 MACHINE TOOL DRESSER Carlton rich MD [facility] CPT-84636 Level 3 Est. Patient 16:23:24 MACHINE TOOL DRESSER Ridge tam [facility] CPT-46516 Level 3 Est. Patient 12:34:12 CDT Carlton rcih MD [facility] CPT-30099 Level 2 Est. Patient 15:43:33 CDT Robi armstrong MD [facility] CPT-21109 Level 4 Est. Patient 14:04:44 CDT Carlton rich MD [facility] CPT-85526 Level 3 Est. Patient 05:47:59 CDT Ridge tam [facility] CPT-12070 Level 3 Est. Patient 13:12:53 MACHINE TOOL DRESSER Carlton rich MD [facility] CPT-60153 Level 3 Est. Patient 14:26:53 CDT Hugo Restrepo MD [facility] Procedures Code Procedure Name Date Entry Date Standard Desc ription CPT-000 Give Appropriate Flu Vaccine 14:14:31 CDT 2 014/10/23 CPT-J1040 Depo Medrol 80 mg (Methyl Prednisolone A cetate) 10:42:44 CDT CPT-J1100 Decadron 8mg (Dexamethasone) 10:42:44 CDT 2 CPT-J0696 Rocephin 1gm Inj Solr 14:32:13 CDT CPT-J1020 Depo Medrol 60 mg (Methyl Prednisolone A cetate) 14:32:13 CDT CPT-J1100 Decadron 6mg (Dexamethasone) 14:32:13 CDT 2 CPT-78481 Hip bilat min 2V w AP pelvis 13:16:20 CDT 2 CPT-57118 Pelvis only 13:07:33 CDT CPT-59926 Spec Collection and Handling Fee 11:25:12 C DT CPT-37375 Fluzone Quadrivalent Intramuscular Suspe nsion 0.5 ML 14:31:55 CDT CPT-26557 Abx/Therapy Injection 13:28:47 MACHINE TOOL DRESSER CPT-J2930 Solu Medrol 125 mg (Methyl Prednisolone Sodium Succinate) 12:00:47 MACHINE TOOL DRESSER CPT-85332 Venipuncture Draw Fee 11:33:31 CDT CPT-01927 EKG Trac and Interp 11:21:09 CDT CPT-16487 Chest 2V Frontal and Lat 11:21:09 CDT 12/15 CPT-17650 Venipuncture Draw Fee 08:02:34 CDT CPT-80879 Chest 2V Frontal and Lat 05:47:59 CDT 06/05
--- OUTSIDE RECORDS SUMMARY | 2019-10-08 09:09 | XMS REPORT | Clinical Summary ---
Author Author Caitlin, Juliana Martinez Organization [facility] Address Unknown Phone Unavailable Allergies, [...] Painful respiration PNEUMONIA 486 Resolved Marcy De aL Rosa MD PhD Pneumonia, organism unspecified SINUSITIS [...] by mouth daily for depression DULOXETINE HCL [id number] No Longer Active Carlton Hu MD Active CYMBALTA 60 MG ORAL CAPSULE DELAYED RELEASE PARTICLES 1 cap by mouth daily for mood and pain DULOXETINE HCL 48103366362 Active Carlton Hu MD Active TUSSIONEX PENNKINETIC ER 10-8 MG/5ML ORAL SUSPENSION E XTENDED RELEASE 5ml po q12hr PRN Cough HYDROCOD POLST-CHLORPHEN POLST 84300479802 Active David Marianne CLIENT MANAGER Active PREDNISONE 20 MG ORAL TABLET Take 2 tabs day 1 and 2 and 1 t ab days 3 and 4 PREDNISONE 92960042173 No Longer Active David Marianne CLIENT MANAGER Active DOXYCYCLINE HYCLATE 100 MG ORAL CAPSULE 1 cap by mouth twice latasha ly DOXYCYCLINE HYCLATE 52899579966 No Longer Active David Lopes APRN Active TOPAMAX 100 MG ORAL TABLET Take 1 tablet po bid TOPIRAMATE 57905040966 No Longer Active David Marianne CLIENT MANAGER Active TUSSIONEX PENNKINETIC ER 10-8 MG/5ML ORAL SUSPENSION E XTENDED RELEASE 5ml po q12hr PRN Cough HYDROCOD POLST-CHLORPHEN POLST 5 2739768107 No Longer Active David Marianne CLIENT MANAGER Active AUGMENTIN 875-125 MG ORAL TABLET 1 po BID x 10 days 20 18/04/16 AMOXICILLIN-POT CLAVULANATE 71240211701 No Longer Active David Lopes CLIENT MANAGER Active PREDNISONE 50 MG ORAL TABLET Take 50 mg dialy for 6 day s 7 PREDNISONE 87607445883 No Longer Active David Marianne RICEN Active TUSSIONEX PENNKINETIC ER 10-8 MG/5ML ORAL SUSPENSION E XTENDED RELEASE 5ml po q12hr PRN Cough HYDROCOD POLST-CHLORPHEN POLST 5 5568769838 No Longer Active Cherelle Torres RN Active PREDNISONE 20 MG ORAL TABLET two tabs by mouth today, then one tab by mouth days two and three and four PREDNISONE 17972198533 No Lo nger Active Cherelle Torres RN Active AZITHROMYCIN 250 MG ORAL TABLET 2 po qd x 1 day, then 1 po q d x 4 days AZITHROMYCIN 67018178321 No Longer Active Ridge Bess DO Active PREDNISONE 20 MG ORAL TABLET 2 po qd x 5 days P REDNISONE 57643808937 No Longer Active Perez Mora MD Active PROAIR HFA 108 (90 BASE) MCG/ACT INHALATION AEROSOL SO LUTION 2 puffs four times a day as needed ALBUTEROL SULFATE 59600048696 No Long er Active Becky AGUILARA Active ASPIRIN 81 MG ORAL TABLET 1 po qd ASPIRIN 38190910894 Active Carlton Hu MD Active PREDNISONE 20 MG ORAL TABLET 1 tab twice daily for 3 d ay, then one daily for three days PREDNISONE 13998855845 No Longer Active Carlton Hu MD Active AUGMENTIN 875-125 MG ORAL TABLET 1 po BID x 10 days 16/03/22 AMOXICILLIN-POT CLAVULANATE 74726045670 No Longer Active Elise Garcia APRN Active TERBINAFINE HCL 250 MG ORAL TABLET 1 qDay for nail fungus 7 TERBINAFINE HCL 84297566911 No Longer Active Carlton Hu MD A ctive AMOXICILLIN 500 MG ORAL CAPSULE 1 cap by mouth three times a day AMOXICILLIN 85997987899 No Longer Active Carlton Hu MD Active ELMIRON 100 MG ORAL CAPSULE 2 tablets in the am and 1 tablet at hs PENTOSAN POLYSULFATE SODIUM 49498373999 No Longer Active Robert Hu MD Active MUCINEX D 60-600 MG ORAL TABLET EXTENDED RELEASE 12 HOUR 1 t ab po q am PSEUDOEPHEDRINE-GUAIFENESIN 60859850543 No Longer Act nael Carlton Hu MD Active MUCINEX DM MAXIMUM STRENGTH 60-1200 MG ORAL TABLET EXT ENDED RELEASE 12 HOUR 1 tab po q am DEXTROMETHORPHAN-GUAIFENESIN 51040263177 No Longer Active Carlton Hu MD Active TUSSIONEX PENNKINETIC ER 10-8 MG/5ML ORAL SUSPENSION E XTENDED RELEASE 5ml po q12hr PRN Cough HYDROCOD POLST-CHLORPHEN POLST 5 1327620332 No Longer Active Carlton Hu MD Active POTASSIUM CHLORIDE ER 20 MEQ ORAL TABLET EXTENDED RELE ASE Take 1 by mouth 4 times daily for 7 days POTASSIUM CHLORIDE 79828454376 No Longer Active Carlton Hu MD Active ZITHROMAX 250 MG ORAL TABLET 2 po today, then 1 po q days 2-5 20 14/09/04 AZITHROMYCIN 01466637544 No Longer Active Elise Garcia APRN Active TUSSIONEX PENNKINETIC ER 10-8 MG/5ML ORAL SUSPENSION E XTENDED RELEASE 5 ml twice a day as needed for cough HYDROCOD POLST-CHLORPH EN POLST 24546090689 No Longer Active Elise Garcia APRN Active MONTELUKAST SODIUM 10 MG ORAL TABLET 1 po daily for Allergy MONTELUKAST SODIUM 03548512732 Active Carlton Hu MD Ac tive TUSSIONEX PENNKINETIC ER 10-8 MG/5ML ORAL SUSPENSION E XTENDED RELEASE 5ml po q12hr PRN Cough HYDROCOD POLST-CHLORPHEN POLST 5 4506499267 No Longer Active Hugo Restrepo MD Active GABAPENTIN 100 MG ORAL CAPSULE 1 po BID for fibromyalgia GABAPENTIN 95970532803 Active ALFREDO Holly Active LYRICA 100 MG ORAL CAPSULE Take 1 tab po BID for fibromyalgia 20 11/08/21 PREGABALIN 72920142000 No Longer Active Elise Garcia APRN A ctive PREDNISONE 20 MG ORAL TABLET 2 tabs daily for 3 days, 1 tab daily for 3 days, 1/2 tab daily for 2 days PREDNISONE 48353032380 No Longer Active Astridina Gege KHAN Active TUSSIONEX PENNKINETIC ER 10-8 MG/5ML ORAL SUSPENSION E XTENDED RELEASE 5 mL PO q 12 hrs PRN cough HYDROCOD POLST-CHLORPHEN POLST 472775 71387 No Longer Active Jillina Frazell CLIENT MANAGER Active FLUTICASONE PROPIONATE 50 MCG/ACT NASAL SUSPENSION 2 s prays each nostril daily until bottle is empty FLUTICASONE PROPIONATE 091849765 99 No Longer Active Jillina Frazell CLIENT MANAGER Active ASMANEX 60 METERED DOSES 220 MCG/INH INHALATION AEROSO L POWDER BREATH ACTIVATED 1 puff bid with rinse after MOMETASONE FUROATE 1336120 4102 No Longer Active Jillina Frazell CLIENT MANAGER Active ZITHROMAX Z-REYNA 250 MG ORAL TABLET 2 today, then 1 daily for 4 d ays AZITHROMYCIN 21410164134 No Longer Active Elise Garcia APRN Active TUSSIONEX PENNKINETIC ER 10-8 MG/5ML ORAL SUSPENSION E XTENDED RELEASE 5ml po q12hr PRN Cough HYDROCOD POLST-CHLORPHEN POLST 5 6260945655 No Longer Active Elise Garcia APRN Active PREDNISONE 20 MG ORAL TABLET 2 tabs daily for 3 days, 1 tab daily for 3 days, 1/2 tab daily for 2 days PREDNISONE 33545780063 No Longer Active Diya De Guzman APRN Active AMOXICILLIN 500 MG ORAL CAPSULE 2 po BID x 10 days 201 09/29/08 AMOXICILLIN 60970595815 No Longer Active Diya De Guzman APRN Act nael SINGULAIR 10 MG ORAL TABLET 1 po qday for allergies 20 14/01/12 MONTELUKAST SODIUM 24389169734 No Longer Active Carlton Hu MD Active LEVAQUIN 500 MG ORAL TABLET 1 tablet by mouth daily 20 13/09/24 LEVOFLOXACIN 10130821154 No Longer Active Carlton Hu MD Acti ve FLUTICASONE PROPIONATE 50 MCG/ACT NASAL SUSPENSION 2 s prays each nostril daily for 2 weeks, then 1 spray each nostril daily. FLUTICASONE PROPIONATE 90647809556 Active Carlton Hu MD Active ZITHROMAX 250 MG ORAL TABLET 2 po today, then 1 po q days 2-5 20 13/08/10 AZITHROMYCIN 68475106838 No Longer Active Elise Garcia APRN Active XANAX 0.5 MG ORAL TABLET one tablet by mouth daily prn anxiety 2015 ALPRAZOLAM 59927275694 Active ALFREDO Holly Active CEFDINIR 300 MG ORAL CAPSULE 1 po BID x 10 days CEFDINIR 74002242582 No Longer Active Carlton Hu MD Active ZOCOR 40 MG ORAL TABLET 1 tab by mouth daily SI MVASTATIN 74595082706 No Longer Active Carlton Hu MD Active CYCLOBENZAPRINE HCL 10 MG ORAL TABLET 1 tablet by mouth BID prn had pain CYCLOBENZAPRINE HCL 64627871659 No Longer Active Jayden Hu MD Active LEVOFLOXACIN 500 MG ORAL TABLET 1 tab PO daily x 10 days LEVOFLOXACIN 17070106612 No Longer Active Carlton Hu MD Acti ve PREDNISONE 20 MG ORAL TABLET 3 tab PO qd x 2d, 2 tab P O qd x 2d, 1 tab PO qd x 2d, 1/2 tab PO qd x 2d PREDNISONE 42877781019 No Lo nger Active Carlton Hu MD Active FLUTICASONE PROPIONATE 50 MCG/ACT NASAL SUSPENSION 1 t o 2 sprays each nostril daily FLUTICASONE PROPIONATE 81147866437 No Longer Ac tive Blaine HERNANDEZ Active CHERATUSSIN AC 100-10 MG/5ML ORAL SYRUP 1 tsp by mouth every 4 hours as needed for cough GUAIFENESIN-CODEINE 83589576891 No Longe r Active Blaine HERNANDEZ Active PROMETHAZINE-CODEINE 6.25-10 MG/5ML ORAL SYRUP 1 tsp b y mouth every 6 hours if needed for cough PROMETHAZINE-CODEINE 96286542372 No Longer Active Blaine HERNANDEZ Active CHERATUSSIN AC 100-10 MG/5ML ORAL SYRUP 1 tsp by mouth every 4 hours as needed for cough GUAIFENESIN-CODEINE 30286419202 No Longe r Active Blaine HERNANDEZ Active ZITHROMAX Z-REYNA 250 MG ORAL TABLET 2 today, then 1 daily for 4 d ays AZITHROMYCIN 45356549584 No Longer Active Columba Raida Act nael ZITHROMAX 250 MG ORAL TABLET 2 po today, then 1 po q days 2-5 20 14/03/21 AZITHROMYCIN 34982499004 No Longer Active Carlton Hu MD Active ZITHROMAX Z-REYNA 250 MG ORAL TABLET 2 today, then 1 daily for 4 d ays AZITHROMYCIN 44621308985 No Longer Active Columba Raida Act nael AUGMENTIN 875-125 MG ORAL TABLET 1 po BID x 10 days 13/01/20 AMOXICILLIN-POT CLAVULANATE 55868158212 No Longer Active Diya Daphnebrayan KHAN Active ZITHROMAX 250 MG ORAL TABLET 2 po today, then 1 po q days 2-5 20 12/08/14 AZITHROMYCIN 37925461938 No Longer Active Carlton Hu MD Active TRAMADOL HCL 50 MG ORAL TABLET 1 po tid with ES Tylenol TRAMADOL HCL 17377182303 Active ALFREDO Holly Active PREMARIN 0.625 MG ORAL TABLET TAKE 1 TAB BY MOUTH DAILY ESTROGENS CONJUGATED 25431374457 No Longer Active Ridge Bess DO A ctive CYMBALTA 30 MG ORAL CAPSULE DELAYED RELEASE PARTICLES 1 cap by mouth daily DULOXETINE HCL 27626761617 No Longer Active Ridge tam DO Active AMOXICILLIN 500 MG ORAL CAPSULE 1 tab by mouth 3 times daily x 10 days AMOXICILLIN 65481458230 No Longer Active Carlton bustamante MD Active AMOXICILLIN 500 MG ORAL CAPSULE 1 tab by mouth 3 times daily x 10 days AMOXICILLIN 22987502081 No Longer Active Carlton bustamante MD Active PROMETHAZINE-CODEINE 6.25-10 MG/5ML ORAL SYRUP 1 tsp b y mouth every 8 hours prn cough PROMETHAZINE-CODEINE 77191341607 No Longer Acti ve Carlton Hu MD Active MEDROL 4 MG ORAL TABLET THERAPY PACK 6 pills x 1 day, then 5 pills x 1 day then 4 pills x 1 day, then 3 pills x 1 day, then 2 pills x 1 day, then 1 pill x 1 day, then stop METHYLPREDNISOLONE 15782296771 No Long er Active Perez Mora MD Active AZITHROMYCIN 250 MG ORAL TABLET 2 po qd x 1 day, then 1 po q d x 4 days AZITHROMYCIN 46253675678 No Longer Active Perez Ambriz MD Active SYMBICORT 160-4.5 MCG/ACT INHALATION AEROSOL 2 puffs bid wit h rinse after BUDESONIDE-FORMOTEROL FUMARATE 57255824260 N o Longer Active Perez Mora MD Active LYRICA 75 MG ORAL CAPSULE TAKE 1 CAPSULE BY MOUTH TWICE DAILY PREGABALIN 12641216383 No Longer Active Carlton Hu MD Acti ve TOPAMAX 25 MG ORAL TABLET 1 qHS x 1 week, then 1 BID x 1 week, then 1 qAM and 2 qHS x 1 week, then 2 BID (migraine prevention) T OPIRAMATE 94046092117 No Longer Active Jerica FUENTES Active TOPAMAX 50 MG ORAL TABLET take 1 tab po BID for migraines. 07/02 TOPIRAMATE 07778834116 No Longer Active Jerica FUENTES Active TRIAMCINOLONE ACETONIDE 0.1 % EXTERNAL CREAM apply three roger es daily prn rash TRIAMCINOLONE ACETONIDE 75840322981 No Longer Active Carlton Hu MD Active PAXIL 40 MG ORAL TABLET take 1 tab po qday for depression 0 PAROXETINE HCL 82877746770 Active Carlton Hu MD Active CHERATUSSIN AC 100-10 MG/5ML ORAL SYRUP 5ml po q6hr PRN Cough 20 13/04/14 GUAIFENESIN-CODEINE 68965337976 No Longer Active Carlton Hu MD Active MEDROL 4 MG ORAL TABLET THERAPY PACK 6 tabs on day 1, 5 tabs on day 2, 4 tabs on day 3, 3 tabs on day 4, 2 tabs on day 5, 1 tab on day 6 2013 METHYLPREDNISOLONE 88342738974 No Longer Active Perez Mora MD Active AZITHROMYCIN 250 MG ORAL TABLET 2 po qd x 1 day, then 1 po q d x 4 days AZITHROMYCIN 12740250087 No Longer Active Perez Ambriz MD Active PROPRANOLOL HCL 60 MG ORAL TABLET 1 PO Q D PROPRANOLOL HCL 90242580188 No Longer Active Perez Mora MD Activ e CHERATUSSIN AC 100-10 MG/5ML ORAL SYRUP take one tsp po Q 6h ours prn cough GUAIFENESIN-CODEINE 35562285628 No Longer Active Zia Mora MD Active AUGMENTIN 875-125 MG ORAL TABLET 1 tab by mouth twice daily with food AMOXICILLIN-POT CLAVULANATE 11260582244 No Longer Act nael Mora MD Active CHERATUSSIN AC 100-10 MG/5ML ORAL SYRUP 1 tsp by mouth every 4 hours as needed for cough GUAIFENESIN-CODEINE 28003286477 No Longe r Active Hugo Restrepo MD Active ACETAMINOPHEN-CODEINE #3 300-30 MG ORAL TABLET 1 PO Q 4-6 HRS AL N PAIN ACETAMINOPHEN-CODEINE 37533169216 No Longer Active Hugo Restrepo MD Active LEVAQUIN 500 MG ORAL TABLET take one po QD LEVO FLOXACIN 22498234593 No Longer Active Griffin HERNANDEZ Active PREDNISONE 20 MG ORAL TABLET Take 3 tabs daily for 3 d ays, 2 tabs daily for 3 days, 1 tab daily for 3 days, 1/2 tab daily for 3 days 11/07 PREDNISONE 59031442358 No Longer Active Carlton Hu MD Acti ve AVELOX 400 MG ORAL TABLET 1 tab by mouth daily MOXIFLOXACIN HCL 14960832820 No Longer Active Carlton Hu MD Active CHERATUSSIN AC 100-10 MG/5ML ORAL SYRUP 1 tsp by mouth every 4 hours as needed for cough GUAIFENESIN-CODEINE 11794640100 No Longe r Active Hugo Restrepo MD Active AVELOX 400 MG ORAL TABLET 1 tab by mouth daily MOXIFLOXACIN HCL 12210146523 No Longer Active Marcy De La Rosa MD PhD Active TERBINAFINE HCL 250 MG ORAL TABLET 1 qDay T ERBINAFINE HCL 50733160909 No Longer Active Marcy De La Rosa MD PhD Active CHERATUSSIN AC 100-10 MG/5ML ORAL SYRUP 1 tsp by mouth every 4 hours as needed for cough GUAIFENESIN-CODEINE 32468452651 No Longe r Active Marcy De La Rosa MD PhD Active AVELOX 400 MG ORAL TABLET 1 tab by mouth daily MOXIFLOXACIN HCL 54338777822 No Longer Active Marcy De La Rosa MD PhD Active HYDROCODONE-ACETAMINOPHEN 5-325 MG ORAL TABLET 1 po q 6hr PRN co ugh HYDROCODONE-ACETAMINOPHEN 66925270712 No Longer Active Marcy De La Rosa MD PhD Active PREDNISONE 20 MG ORAL TABLET 2 tabs daily for 3 days, 1 tab daily for 3 days, 1/2 tab daily for 2 days PREDNISONE 66831826147 No Longer Active Carlton Hu MD Active CEFDINIR 300 MG ORAL CAPSULE by mouth twice a day 2011 CEFDINIR 51688940291 No Longer Active Carlton Hu MD Acti ve HYDROCHLOROTHIAZIDE 25 MG ORAL TABLET 1 TAB PO DAILY HYDROCHLOROTHIAZIDE 01765091865 Active Carlton Hu MD A ctive ACETAMINOPHEN-CODEINE #3 300-30 MG ORAL TABLET 1 tablet po q 4-6 hrs prn pain ACETAMINOPHEN-CODEINE 99999738020 No Longer Active Ridge Bess DO Active ZITHROMAX 250 MG ORAL TABLET 2 po today, then 1 po q days 2-5 20 03/07/07 AZITHROMYCIN 24361496966 No Longer Active Carlton Hu MD Active CHERATUSSIN AC 100-10 MG/5ML ORAL SYRUP take 1 tsp po q4-6 h ours prn cough GUAIFENESIN-CODEINE 11957517592 No Longer Active Jayden Hu MD Active ACETAMINOPHEN-CODEINE #3 300-30 MG ORAL TABLET 1 PO Q 4-6 HR PRN PAIN ACETAMINOPHEN-CODEINE 51798430439 No Longer Active Arnol Hu MD Active LORTAB 7.5-500 MG/15ML ORAL ELIXIR 7.5 ml po q 4 hour prn cough HYDROCODONE-ACETAMINOPHEN 26612476510 No Longer Active Carlton Hu MD Active PREDNISONE 20 MG ORAL TABLET 1 po bid 3 days, then 1 po q day 3 days PREDNISONE 33458025135 No Longer Active Carlton Hu MD Active CEFDINIR 300 MG ORAL CAPSULE by mouth twice a day 2011 CEFDINIR 49589864686 No Longer Active Carlton Hu MD Acti ve CEFDINIR 300 MG ORAL CAPSULE by mouth twice a day 2010 CEFDINIR 79439151806 No Longer Active Carlton Hu MD Acti ve CEFDINIR 300 MG ORAL CAPSULE by mouth twice a day 2010 CEFDINIR 68608070894 No Longer Active Carlton Hu MD Acti ve TESSALON PERLES 100 MG ORAL CAPSULE 1 tablet by mouth 3 times daily as needed for cough BENZONATATE 42762979688 No Longer Active Carlton Hu MD Active CEFDINIR 300 MG ORAL CAPSULE by mouth twice a day 2010 CEFDINIR 37144858840 No Longer Active Carlton Hu MD Acti ve ZITHROMAX Z-REYNA 250 MG ORAL TABLET 2 today, then 1 daily for 4 d ays AZITHROMYCIN 76809284479 No Longer Active Hugo Restrepo MD Active TESSALON PERLES 100 MG ORAL CAPSULE 1 tablet by mouth 3 times daily as needed for cough TESSALON PERLES 100 MG ORAL CAPSULE 80854 7 BENZONATATE Inactive PREDNISONE 20 MG ORAL TABLET 1 po bid 3 days, then 1 po q day 3 days PREDNISONE 20 MG ORAL TABLET 607735 PREDNISONE Greer ctive LORTAB 7.5-500 MG/15ML ORAL [...] cough CHERATUSSIN AC 100-10 MG/5ML ORAL SYRUP 625735 GUAIFENESIN-CODEINE Inactive ACETAMINOPHEN-CODEINE #3 300-30 MG ORAL TABLET 1 tablet po q 4-6 hrs prn pain ACETAMINOPHEN-CODEINE #3 300-30 MG ORAL TABLET ACETAMINOPHEN-CODEINE Inactive HYDROCODONE-ACETAMINOPHEN 5-325 MG ORAL TABLET 1 po q 6hr PRN co ugh HYDROCODONE-ACETAMINOPHEN 5-325 MG ORAL TABLET 228881 HYDROCODONE-ACETAMINOPHEN Inactive AVELOX 400 MG ORAL TABLET 1 tab by mouth daily AVELOX 400 MG ORAL TABLET 097218 MOXIFLOXACIN HCL Inactive CHERATUSSIN AC 100-10 MG/5ML ORAL SYRUP 1 tsp by mouth every 4 hours as needed for cough CHERATUSSIN AC 100-10 MG/5ML ORAL SYRUP 9 41357 GUAIFENESIN-CODEINE Inactive TERBINAFINE HCL 250 MG ORAL TABLET 1 qDay 07/08 TERBINAFINE HCL 250 MG ORAL TABLET 893919 TERBINAFINE HCL Inactive CHERATUSSIN AC 100-10 MG/5ML ORAL SYRUP 1 tsp by mouth every 4 hours as needed for cough CHERATUSSIN AC 100-10 MG/5ML ORAL SYRUP 9 12308 GUAIFENESIN-CODEINE Inactive ACETAMINOPHEN-CODEINE #3 300-30 MG ORAL TABLET 1 PO Q 4-6 HRS AL N PAIN ACETAMINOPHEN-CODEINE #3 300-30 MG ORAL TABLET ACETAMINOPHEN-CODEINE Inactive CHERATUSSIN AC 100-10 MG/5ML ORAL SYRUP 1 tsp by mouth every 4 hours as needed for cough CHERATUSSIN AC 100-10 MG/5ML ORAL SYRUP 9 63270 GUAIFENESIN-CODEINE Inactive AUGMENTIN 875-125 MG ORAL TABLET 1 tab by mouth twice daily with food AUGMENTIN 875-125 MG ORAL TABLET 522461 AMOXICIL MADELINE-POT CLAVULANATE Inactive CHERATUSSIN AC 100-10 MG/5ML ORAL SYRUP take one tsp po Q 6h ours prn cough CHERATUSSIN AC 100-10 MG/5ML ORAL SYRUP 354224 GUAIFENESIN-CODEINE Inactive PROPRANOLOL HCL 60 MG ORAL TABLET 1 PO Q D PROPRANOLOL HCL 60 MG ORAL TABLET 018786 PROPRANOLOL HCL Inactive TOPAMAX 50 MG ORAL TABLET take 1 tab po BID for migraines. 07/02 TOPAMAX 50 MG ORAL TABLET 937763 TOPIRAMATE Inacti ve TOPAMAX 25 MG ORAL TABLET 1 qHS x 1 week, then 1 BID x 1 week, then 1 qAM and 2 qHS x 1 week, then 2 BID (migraine prevention) TOPAMAX 25 MG ORAL TABLET 230205 TOPIRAMATE Inactive LYRICA 75 MG ORAL CAPSULE TAKE 1 CAPSULE BY MOUTH TWICE DAILY LYRICA 75 MG ORAL CAPSULE PREGABALIN Inactive SYMBICORT 160-4.5 MCG/ACT INHALATION AEROSOL 2 puffs bid wit h rinse after SYMBICORT 160-4.5 MCG/ACT INHALATION AEROSOL BUDESONIDE- FORMOTEROL FUMARATE Inactive PROMETHAZINE-CODEINE 6.25-10 MG/5ML ORAL SYRUP 1 tsp b y mouth every 8 hours prn cough PROMETHAZINE-CODEINE 6.25-10 MG/ 5ML ORAL SYRUP 032742 PROMETHAZINE-CODEINE Inactive CYMBALTA 30 MG ORAL CAPSULE DELAYED RELEASE PARTICLES 1 cap by mouth daily CYMBALTA 30 MG ORAL CAPSULE DELAYED RELE ASE PARTICLES 159901 DULOXETINE HCL Inactive PREMARIN 0.625 MG ORAL TABLET TAKE 1 TAB BY MOUTH DAILY PREMARIN 0.625 MG ORAL TABLET ESTROGENS CONJUGATED Inactive CHERATUSSIN AC 100-10 MG/5ML ORAL SYRUP 1 tsp by mouth every 4 hours as needed for cough CHERATUSSIN AC 100-10 MG/5ML ORAL SYRUP 9 01263 GUAIFENESIN-CODEINE Inactive PROMETHAZINE-CODEINE 6.25-10 MG/5ML ORAL SYRUP 1 tsp b y mouth every 6 hours if needed for cough PROMETHAZINE-CODEINE 6.25-10 MG/5ML ORAL SYRUP 926048 PROMETHAZINE-CODEINE Inactive CHERATUSSIN AC 100-10 MG/5ML ORAL SYRUP 1 tsp by mouth every 4 hours as needed for cough CHERATUSSIN AC 100-10 MG/5ML ORAL SYRUP 9 05583 GUAIFENESIN-CODEINE Inactive FLUTICASONE PROPIONATE 50 MCG/ACT NASAL SUSPENSION 1 t o 2 sprays each nostril daily FLUTICASONE PROPIONATE 50 MCG/AC T NASAL SUSPENSION 1556134 FLUTICASONE PROPIONATE Inactive PREDNISONE 20 MG ORAL TABLET 3 tab PO qd x 2d, 2 tab P O qd x 2d, 1 tab PO qd x 2d, 1/2 tab PO qd x 2d PREDNISONE 20 MG ORAL TAB LET 886491 PREDNISONE Inactive LEVOFLOXACIN 500 MG ORAL TABLET 1 tab PO daily x 10 days LEVOFLOXACIN 500 MG ORAL TABLET 054735 LEVOFLOXACIN Inactive CYCLOBENZAPRINE HCL 10 MG ORAL TABLET 1 tablet by mouth BID prn had pain CYCLOBENZAPRINE HCL 10 MG ORAL TABLET 304700 CYCLOBENZAPRINE HCL Inactive ZOCOR 40 MG ORAL TABLET 1 tab by mouth daily 4 ZOCOR 40 MG ORAL TABLET 030623 SIMVASTATIN Inactive TUSSIONEX PENNKINETIC ER 10-8 MG/5ML [...] FLUTICASONE PROPIO EFE 50 MCG/ACT NASAL SUSPENSION 3266913 FLUTICASONE PROPIONATE Inactive TUSSIONEX PENNKINETIC ER 10-8 [...] three days PREDNISONE 20 MG ORAL TABLET 219265 PREDNIS ONE Inactive PROAIR HFA 108 (90 BASE) MCG/ACT INHALATION AEROSOL SO LUTION 2 puffs four times a day as needed PROAIR HFA 108 (90 B ASE) MCG/ACT INHALATION AEROSOL SOLUTION ALBUTEROL SULFATE Inactive PREDNISONE 20 MG ORAL TABLET two tabs by mouth today, then one tab by mouth days two and three and four PREDNISONE 20 MG ORAL TAB LET 480336 PREDNISONE Inactive TUSSIONEX PENNKINETIC ER 10-8 MG/5ML [...] bid 04/20 TOPAMAX 100 MG ORAL TABLET 060283 TOPIRAMATE Inactive CYMBALTA 30 MG ORAL CAPSULE DELAYED RELEASE PARTICLES 1 cap by mouth daily for depression CYMBALTA 30 MG ORAL CAPSULE DELAYED RELEASE PARTICLES 196889 DULOXETINE HCL Inactive ZITHROMAX Z-REYNA 250 MG ORAL TABLET 2 today, then 1 daily for 4 d ays ZITHROMAX Z-REYNA 250 MG ORAL TABLET 938508 AZITHROMYCIN Inactive CEFDINIR 300 MG ORAL CAPSULE by mouth twice a day 2010 CEFDINIR 300 MG ORAL CAPSULE 20020704 CEFDINIR Inactive CEFDINIR 300 MG ORAL CAPSULE by mouth twice a day 2010 CEFDINIR 300 MG ORAL CAPSULE 231101 CEFDINIR Inactive CEFDINIR 300 MG ORAL CAPSULE by mouth twice a day 2010 CEFDINIR 300 MG ORAL CAPSULE 365440 CEFDINIR Inactive CEFDINIR 300 MG ORAL CAPSULE by mouth twice a day 2011 CEFDINIR 300 MG ORAL CAPSULE 463495 CEFDINIR Inactive ZITHROMAX 250 MG ORAL TABLET 2 po today, then 1 po q days 2-5 20 03/07/07 ZITHROMAX 250 MG ORAL TABLET 088836 AZITHROMYCIN [place] ctive CEFDINIR 300 MG ORAL CAPSULE by mouth twice a day 2011 CEFDINIR 300 MG ORAL CAPSULE 983907 CEFDINIR Inactive PREDNISONE 20 MG ORAL TABLET 2 tabs daily for 3 days, 1 tab daily for 3 days, 1/2 tab daily for 2 days PREDNISONE 20 MG ORAL T ABLET 677377 PREDNISONE Inactive AVELOX 400 MG ORAL TABLET 1 tab by mouth daily AVELOX 400 MG ORAL TABLET 268556 MOXIFLOXACIN HCL Inactive AVELOX 400 MG ORAL TABLET 1 tab by mouth daily AVELOX 400 MG ORAL TABLET 787384 MOXIFLOXACIN HCL Inactive PREDNISONE 20 MG ORAL TABLET Take 3 tabs daily for 3 d ays, 2 tabs daily for 3 days, 1 tab daily for 3 days, 1/2 tab daily for 3 days 11/07 PREDNISONE 20 MG ORAL TABLET 442423 PREDNISONE Inactive LEVAQUIN 500 MG ORAL TABLET take one po QD LEVAQUIN 500 MG ORAL TABLET 168892 LEVOFLOXACIN Inactive AZITHROMYCIN 250 MG ORAL TABLET 2 po qd x 1 day, then 1 po q d x 4 days AZITHROMYCIN 250 MG ORAL TABLET 392206 AZITHROMY GIOVANNI Inactive MEDROL 4 MG ORAL TABLET THERAPY PACK 6 tabs on day 1, 5 tabs on day 2, 4 tabs on day 3, 3 tabs on day 4, 2 tabs on day 5, 1 tab on day 6 2013 MEDROL 4 MG ORAL TABLET THERAPY PACK 631615 METHYLPREDNISOLONE [place] ctive CHERATUSSIN AC 100-10 MG/5ML ORAL SYRUP 5ml po q6hr PRN Cough 20 13/04/14 CHERATUSSIN AC 100-10 MG/5ML ORAL SYRUP 639949 GUAIFENE SIN-CODEINE Inactive TRIAMCINOLONE ACETONIDE 0.1 % EXTERNAL CREAM apply three roger es daily prn rash TRIAMCINOLONE ACETONIDE 0.1 % EXTERNAL CREAM 101 4314 TRIAMCINOLONE ACETONIDE Inactive AZITHROMYCIN 250 MG ORAL TABLET 2 po qd x 1 day, then 1 po q d x 4 days AZITHROMYCIN 250 MG ORAL TABLET 285088 AZITHROMY GIOVANNI Inactive MEDROL 4 MG ORAL TABLET THERAPY PACK 6 pills x 1 day, then 5 pills x 1 day then 4 pills x 1 day, then 3 pills x 1 day, then 2 pills x 1 day, then 1 pill x 1 day, then stop MEDROL 4 MG ORAL TABLET THERAPY PACK 068066 METHYLPREDNISOLONE Inactive AMOXICILLIN 500 MG ORAL CAPSULE 1 tab by mouth 3 times daily x 10 days AMOXICILLIN 500 MG ORAL CAPSULE 590726 AMOXICILL IN Inactive AMOXICILLIN 500 MG ORAL CAPSULE 1 tab by mouth 3 times daily x 10 days AMOXICILLIN 500 MG ORAL CAPSULE 788491 AMOXICILL IN Inactive ZITHROMAX 250 MG ORAL TABLET 2 po today, then 1 po q days 2-5 20 12/08/14 ZITHROMAX 250 MG ORAL TABLET 774726 AZITHROMYCIN Greer ctive AUGMENTIN 875-125 MG ORAL TABLET 1 po BID x 10 days 20 13/01/20 AUGMENTIN 875-125 MG ORAL TABLET 768909 AMOXICILLIN-POT CLAVULANATE Inactive ZITHROMAX Z-REYNA 250 MG ORAL TABLET 2 today, then 1 daily for 4 d ays ZITHROMAX Z-REYNA 250 MG ORAL TABLET 827782 AZITHROMYCIN Inactive ZITHROMAX 250 MG ORAL TABLET 2 po today, then 1 po q days 2-5 20 14/03/21 ZITHROMAX 250 MG ORAL TABLET 134179 AZITHROMYCIN Greer ctive ZITHROMAX Z-REYNA 250 MG ORAL TABLET 2 today, then 1 daily for 4 d ays ZITHROMAX Z-REYNA 250 MG ORAL TABLET 169437 AZITHROMYCIN Inactive CEFDINIR 300 MG ORAL CAPSULE 1 po BID x 10 days 06/21 CEFDINIR 300 MG ORAL CAPSULE 639227 CEFDINIR Inactive ZITHROMAX 250 MG ORAL TABLET 2 po today, then 1 po q days 2-5 20 13/08/10 ZITHROMAX 250 MG ORAL TABLET 028753 AZITHROMYCIN [place] ctive LEVAQUIN 500 MG ORAL TABLET 1 tablet by mouth daily 13/09/24 LEVAQUIN 500 MG ORAL TABLET 619254 LEVOFLOXACIN Inactive SINGULAIR 10 MG ORAL TABLET 1 po qday for allergies 20 14/01/12 SINGULAIR 10 MG ORAL TABLET 465727 MONTELUKAST SODIUM Inactive AMOXICILLIN 500 MG ORAL CAPSULE 2 po BID x 10 days 201 09/29/08 AMOXICILLIN 500 MG ORAL CAPSULE 172681 AMOXICILLIN Inactive PREDNISONE 20 MG ORAL TABLET 2 tabs daily for 3 days, 1 tab daily for 3 days, 1/2 tab daily for 2 days PREDNISONE 20 MG ORAL T ABLET 606471 PREDNISONE Inactive ZITHROMAX Z-REYNA 250 MG ORAL TABLET 2 today, then 1 daily for 4 d ays ZITHROMAX Z-REYAN 250 MG ORAL TABLET 837035 AZITHROMYCIN Inactive PREDNISONE 20 MG ORAL TABLET 2 tabs daily for 3 days, 1 tab daily for 3 days, 1/2 tab daily for 2 days PREDNISONE 20 MG ORAL T ABLET 792101 PREDNISONE Inactive ZITHROMAX 250 MG ORAL TABLET 2 po today, then 1 po q days 2-5 20 14/09/04 ZITHROMAX 250 MG ORAL TABLET 906599 AZITHROMYCIN [place] ctive AMOXICILLIN 500 MG ORAL CAPSULE 1 cap by mouth three times a day AMOXICILLIN 500 MG ORAL CAPSULE 944578 AMOXICILLIN Inactive TERBINAFINE HCL 250 MG ORAL TABLET 1 qDay for nail fungus 7 TERBINAFINE HCL 250 MG ORAL TABLET 293156 TERBINAFINE HCL Inact nael AUGMENTIN 875-125 MG ORAL TABLET 1 po BID x 10 days 16/03/22 AUGMENTIN 875-125 MG ORAL TABLET 508686 AMOXICILLIN-POT CLAVULANATE Inactive PREDNISONE 20 MG ORAL TABLET 2 po qd x 5 days PREDNISONE 20 MG ORAL TABLET 458437 PREDNISONE Inactive AZITHROMYCIN 250 MG ORAL TABLET 2 po qd x 1 day, then 1 po q d x 4 days AZITHROMYCIN 250 MG ORAL TABLET 678309 AZITHROMY GIOVANNI Inactive PREDNISONE 50 MG ORAL TABLET Take 50 mg dialy for 6 day s 7 PREDNISONE 50 MG ORAL TABLET 879121 PREDNISONE Inactive AUGMENTIN 875-125 MG ORAL TABLET 1 po BID x 10 days 18/04/16 AUGMENTIN 875-125 MG ORAL TABLET 554745 AMOXICILLIN-POT CLAVULANATE Inactive DOXYCYCLINE HYCLATE 100 MG ORAL CAPSULE 1 cap by mouth twice latasha ly DOXYCYCLINE HYCLATE 100 MG ORAL CAPSULE 8308693 DOXYCYCL INE HYCLATE Inactive PREDNISONE 20 MG ORAL TABLET Take 2 tabs day 1 and 2 and 1 t ab days 3 and 4 PREDNISONE 20 MG ORAL TABLET 152990 PREDNISONE Inactive Vital Signs Date Name Value [...] - Chem istry sodium, serum 139 mmol/L [phone]/10/12 potassium, serum 3.8 mmol/L 3.5-5.2 chloride, serum 102 mmol/L 98-107 carbon dioxide, venous blood 29.4 mmol/L 21.0-32 .0 blood glucose 103 mg/dL 65-95 calcium, serum 8.8 mg/dL 8.5-10.1 urea nitrogen, blood 10 mg/dL 7-18 creatinine, serum 0.97 mg/dL 0.60-1.30 Estimated Glomerular Filtration Rate (calc) 62 (?) mL/min/1.73m2 = OR > 60 mL/min Encounters Code Encounter Date Provider Facility CPT-[id number] Vst-Est Level IV 08:41:[address] Carlton Hu MD [facility] CPT-38921 Level 3 Est. Patient 09:46:49 YIELD ENGINEER David lion [facility]-30812 [id number] Vst-Est Level III 11:12:16 CDT Yanet Bess DO [facility] CPT-44546 Level 3 Est. Patient 11:34:49 YIELD ENGINEER Perez Mora MD [facility] CPT-75126 Level 4 Est. Patient 09:51:32 YIELD ENGINEER Carlton rich MD [facility] CPT-93150 Level 3 Est. Patient 10:26:00 YIELD ENGINEER Elise stephenson [facility] CPT-72620 Level 3 Est. Patient 13:35:41 YIELD ENGINEER Carlton rich MD [facility]-44513 Level 3 Est. Patient 10:03:52 YIELD ENGINEER Carlton rich MD [facility] CPT-38888 Level 3 Est. Patient 12:17:50 CDT Hugo Restrepo MD [facility]-04611 Level 3 Est. Patient 13:42:38 CDT Elise Are [facility] CPT-69151 Level 3 Est. Patient 13:23:51 CDT Diya cobian [facility] CPT-45806 Level 3 Est. Patient 14:22:19 YIELD ENGINEER Astridgreer Mariana cobian [facility] CPT-92011 Level 3 Est. Patient 10:11:46 CDT Carlton rich MD [facility] CPT-03190 Level 3 Est. Patient 17:29:43 CDT Elise Are [facility] CPT-99944 Level 3 Est. Patient 11:58:06 CDT Elise Are [facility] CPT-80024 Level 4 Est. Patient 14:36:51 CDT Carlton rich MD [facility] CPT-94761 Level 3 Est. Patient 18:16:00 YIELD ENGINEER Blaine HERNANDEZ [facility] CPT-15122 Level 3 Est. Patient 09:45:49 YIELD ENGINEER Carlton rich MD [facility] CPT-01301 Level 3 Est. Patient 13:19:20 CDT Carlton rich MD [facility] CPT-96879 Level 3 Est. Patient 13:06:43 CDT Ridge tam DO [facility] CPT-86100 Level 3 Est. Patient 10:03:07 CDT Perez Mora MD [facility] CPT-54371 Level 3 Est. Patient 19:50:35 YIELD ENGINEER Carlton rich MD [facility] CPT-06724 Level 4 Est. Patient 18:05:01 YIELD ENGINEER Carlton rich MD [facility] CPT-36608 Level 3 Est. Patient 10:45:55 YIELD ENGINEER Hugo Restrepo MD [facility] CPT-73926 Level 3 Est. Patient 14:12:49 CDT Griffin HERNANDEZ [facility] CPT-89228 Level 3 Est. Patient 17:37:24 CDT Carlton rich MD [facility] CPT-11911 Level 3 Est. Patient 16:51:54 CDT Carlton rich MD [facility] CPT-99410 Level 3 Est. Patient 12:18:11 CDT Hugo Restrepo MD [facility] CPT-84924 Level 3 Est. Patient 11:30:25 CDT Marcy crisostomo MD PhD [facility] CPT-85575 Level 3 Est. Patient 12:00:47 YIELD ENGINEER Carlton rich MD [facility] CPT-36925 Level 3 Est. Patient 16:31:06 YIELD ENGINEER Carlton rich MD [facility] CPT-41643 Level 3 Est. Patient 16:23:24 YIELD ENGINEER Ridge tam [facility] CPT-39249 Level 3 Est. Patient 12:34:12 CDT Carlton rihc MD [facility] CPT-78676 Level 2 Est. Patient 15:43:33 CDT Robi armstrong MD [facility] CPT-58564 Level 4 Est. Patient 14:04:44 CDT Carlton rich MD [facility] CPT-61362 Level 3 Est. Patient 05:47:59 CDT Ridge tam [facility] CPT-44548 Level 3 Est. Patient 13:12:53 YIELD ENGINEER Carlton rich MD [facility] CPT-45347 Level 3 Est. Patient 14:26:53 CDT Hugo [...] CPT-J1100 Decadron 6mg (Dexamethasone) 14:32:13 CDT 2 CPT-59681 Hip bilat min 2V w AP pelvis 13:16:20 CDT 2 CPT-47528 Pelvis only 13:07:33 CDT CPT-01786 Spec Collection and Handling Fee 11:25:12 C DT CPT-44406 Fluzone Quadrivalent Intramuscular Suspe nsion 0.5 ML 14:31:55 CDT CPT-12416 Abx/Therapy Injection 13:28:47 YIELD ENGINEER CPT-J2930 Solu Medrol 125 mg (Methyl Prednisolone Sodium Succinate) 12:00:47 YIELD ENGINEER CPT-09357 Venipuncture Draw Fee 11:33:31 CDT CPT-68460 EKG Trac and Interp 11:21:09 CDT CPT-87784 Chest 2V Frontal and Lat 11:21:09 CDT 12/15 CPT-38639 Venipuncture Draw Fee 08:02:34 CDT CPT-13176 Chest 2V Frontal and Lat 05:47:59 CDT 06/05
--- OUTSIDE RECORDS SUMMARY | 2019-10-08 09:09 | XMS REPORT | Clinical Summary ---
Author Author Caitlin, Juliana Martinez Organization [facility] Address Unknown Phone Unavailable Allergies, Adverse [...] EXAMINATION OF DEFINED SUBPOPULATION V70.5 Act nael [place] [facility] examination of defined subpopulat ions [...] by mouth daily for depression DULOXETINE HCL 28084354659 No Longer Active Carlton Hu MD Active CYMBALTA 60 MG ORAL CAPSULE DELAYED RELEASE PARTICLES 1 cap by mouth daily for mood and pain DULOXETINE HCL 93260415515 Active Carlton Hu MD Active TUSSIONEX PENNKINETIC ER 10-8 MG/5ML ORAL SUSPENSION E XTENDED RELEASE 5ml po q12hr PRN Cough HYDROCOD POLST-CHLORPHEN POLST 78796570824 Active David Marianne RN SHIFT MGR Active PREDNISONE 20 MG ORAL TABLET Take 2 tabs day 1 and 2 and 1 t ab days 3 and 4 PREDNISONE 31518739080 No Longer Active David Marianne RN SHIFT MGR Active DOXYCYCLINE HYCLATE 100 MG ORAL CAPSULE 1 cap by mouth twice latasha ly DOXYCYCLINE HYCLATE 30778536449 No Longer Active David Lopes APRN Active TOPAMAX 100 MG ORAL TABLET Take 1 tablet po bid TOPIRAMATE 91434424026 No Longer Active David Marianne RN SHIFT MGR Active TUSSIONEX PENNKINETIC ER 10-8 MG/5ML ORAL SUSPENSION E XTENDED RELEASE 5ml po q12hr PRN Cough HYDROCOD POLST-CHLORPHEN POLST 5 0852551756 No Longer Active David Marianne RN SHIFT MGR Active AUGMENTIN 875-125 MG ORAL TABLET 1 po BID x 10 days 20 18/04/16 AMOXICILLIN-POT CLAVULANATE 52256465144 No Longer Active David Lopes RN SHIFT MGR Active PREDNISONE 50 MG ORAL TABLET Take 50 mg dialy for 6 day s 7 PREDNISONE 45811618678 No Longer Active David Marianne RICEN Active TUSSIONEX PENNKINETIC ER 10-8 MG/5ML ORAL SUSPENSION E XTENDED RELEASE 5ml po q12hr PRN Cough HYDROCOD POLST-CHLORPHEN POLST 5 1986544646 No Longer Active Cherelle Torres RN Active PREDNISONE 20 MG ORAL TABLET two tabs by mouth today, then one tab by mouth days two and three and four PREDNISONE 16039677980 No Lo nger Active Cherelle Torres RN Active AZITHROMYCIN 250 MG ORAL TABLET 2 po qd x 1 day, then 1 po q d x 4 days AZITHROMYCIN 06777317447 No Longer Active Ridge Bess DO Active PREDNISONE 20 MG ORAL TABLET 2 po qd x 5 days P REDNISONE 37629217652 No Longer Active Perez Mora MD Active PROAIR HFA 108 (90 BASE) MCG/ACT INHALATION AEROSOL SO LUTION 2 puffs four times a day as needed ALBUTEROL SULFATE 11484124193 No Long er Active Becky AGUILARA Active ASPIRIN 81 MG ORAL TABLET 1 po qd ASPIRIN 63687992112 Active Carlton Hu MD Active PREDNISONE 20 MG ORAL TABLET 1 tab twice daily for 3 d ay, then one daily for three days PREDNISONE 38514673594 No Longer Active Carlton Hu MD Active AUGMENTIN 875-125 MG ORAL TABLET 1 po BID x 10 days 16/03/22 AMOXICILLIN-POT CLAVULANATE 32912876536 No Longer Active Elise Garcia APRN Active TERBINAFINE HCL 250 MG ORAL TABLET 1 qDay for nail fungus 7 TERBINAFINE HCL 74659571558 No Longer Active Carlton Hu MD A ctive AMOXICILLIN 500 MG ORAL CAPSULE 1 cap by mouth three times a day AMOXICILLIN 45747987218 No Longer Active Carlton Hu MD Active ELMIRON 100 MG ORAL CAPSULE 2 tablets in the am and 1 tablet at hs PENTOSAN POLYSULFATE SODIUM 95501180723 No Longer Active Robert Hu MD Active MUCINEX D 60-600 MG ORAL TABLET EXTENDED RELEASE 12 HOUR 1 t ab po q am PSEUDOEPHEDRINE-GUAIFENESIN 26028978317 No Longer Act nael Carlton Hu MD Active MUCINEX DM MAXIMUM STRENGTH 60-1200 MG ORAL TABLET EXT ENDED RELEASE 12 HOUR 1 tab po q am DEXTROMETHORPHAN-GUAIFENESIN 41268769138 No Longer Active Carlton Hu MD Active TUSSIONEX PENNKINETIC ER 10-8 MG/5ML ORAL SUSPENSION E XTENDED RELEASE 5ml po q12hr PRN Cough HYDROCOD POLST-CHLORPHEN POLST 5 2350653399 No Longer Active Carlton Hu MD Active POTASSIUM CHLORIDE ER 20 MEQ ORAL TABLET EXTENDED RELE ASE Take 1 by mouth 4 times daily for 7 days POTASSIUM CHLORIDE 08217123751 No Longer Active Carlton Hu MD Active ZITHROMAX 250 MG ORAL TABLET 2 po today, then 1 po q days 2-5 20 14/09/04 AZITHROMYCIN 07282215042 No Longer Active Elise Garcia APRN Active TUSSIONEX PENNKINETIC ER 10-8 MG/5ML ORAL SUSPENSION E XTENDED RELEASE 5 ml twice a day as needed for cough HYDROCOD POLST-CHLORPH EN POLST 38609079773 No Longer Active Elise Garcia APRN Active MONTELUKAST SODIUM 10 MG ORAL TABLET 1 po daily for Allergy MONTELUKAST SODIUM 38582747467 Active Carlton Hu MD Ac tive TUSSIONEX PENNKINETIC ER 10-8 MG/5ML ORAL SUSPENSION E XTENDED RELEASE 5ml po q12hr PRN Cough HYDROCOD POLST-CHLORPHEN POLST 5 6275176193 No Longer Active Hugo Restrepo MD Active GABAPENTIN 100 MG ORAL CAPSULE 1 po BID for fibromyalgia GABAPENTIN 82039796573 Active ALFREDO Holly Active LYRICA 100 MG ORAL CAPSULE Take 1 tab po BID for fibromyalgia 20 11/08/21 PREGABALIN 13330441815 No Longer Active Elise Garcia APRN A ctive PREDNISONE 20 MG ORAL TABLET 2 tabs daily for 3 days, 1 tab daily for 3 days, 1/2 tab daily for 2 days PREDNISONE 25459294820 No Longer Active Astridina Gege KHAN Active TUSSIONEX PENNKINETIC ER 10-8 MG/5ML ORAL SUSPENSION E XTENDED RELEASE 5 mL PO q 12 hrs PRN cough HYDROCOD POLST-CHLORPHEN POLST 037860 54259 No Longer Active Jillina Frazell RN SHIFT MGR Active FLUTICASONE PROPIONATE 50 MCG/ACT NASAL SUSPENSION 2 s prays each nostril daily until bottle is empty FLUTICASONE PROPIONATE 205067526 99 No Longer Active Jillina Frazell RN SHIFT MGR Active ASMANEX 60 METERED DOSES 220 MCG/INH INHALATION AEROSO L POWDER BREATH ACTIVATED 1 puff bid with rinse after MOMETASONE FUROATE 4112107 4102 No Longer Active Jillina Frazell RN SHIFT MGR Active ZITHROMAX Z-REYNA 250 MG ORAL TABLET 2 today, then 1 daily for 4 d ays AZITHROMYCIN 03409749982 No Longer Active Elise Garcia APRN Active TUSSIONEX PENNKINETIC ER 10-8 MG/5ML ORAL SUSPENSION E XTENDED RELEASE 5ml po q12hr PRN Cough HYDROCOD POLST-CHLORPHEN POLST 5 5188831930 No Longer Active Elise Garcia APRN Active PREDNISONE 20 MG ORAL TABLET 2 tabs daily for 3 days, 1 tab daily for 3 days, 1/2 tab daily for 2 days PREDNISONE 51806588136 No Longer Active Diya De Guzman APRN Active AMOXICILLIN 500 MG ORAL CAPSULE 2 po BID x 10 days 201 09/29/08 AMOXICILLIN 19983414365 No Longer Active Diya De Guzman APRN Act nael SINGULAIR 10 MG ORAL TABLET 1 po qday for allergies 20 14/01/12 MONTELUKAST SODIUM 77811669646 No Longer Active Carlton Hu MD Active LEVAQUIN 500 MG ORAL TABLET 1 tablet by mouth daily 20 13/09/24 LEVOFLOXACIN 63398360688 No Longer Active Carlton Hu MD Acti ve FLUTICASONE PROPIONATE 50 MCG/ACT NASAL SUSPENSION 2 s prays each nostril daily for 2 weeks, then 1 spray each nostril daily. FLUTICASONE PROPIONATE 64127030492 Active Carlton Hu MD Active ZITHROMAX 250 MG ORAL TABLET 2 po today, then 1 po q days 2-5 20 13/08/10 AZITHROMYCIN 45327621031 No Longer Active Elise Garcia APRN Active XANAX 0.5 MG ORAL TABLET one tablet by mouth daily prn anxiety 2015 ALPRAZOLAM 67154355845 Active ALFREDO Holly Active CEFDINIR 300 MG ORAL CAPSULE 1 po BID x 10 days CEFDINIR 28112823256 No Longer Active Carlton uH MD Active ZOCOR 40 MG ORAL TABLET 1 tab by mouth daily SI MVASTATIN 38263164169 No Longer Active Carlton Hu MD Active CYCLOBENZAPRINE HCL 10 MG ORAL TABLET 1 tablet by mouth BID prn had pain CYCLOBENZAPRINE HCL 72807796091 No Longer Active Jayden Hu MD Active LEVOFLOXACIN 500 MG ORAL TABLET 1 tab PO daily x 10 days LEVOFLOXACIN 22495412802 No Longer Active Carlton Hu MD Acti ve PREDNISONE 20 MG ORAL TABLET 3 tab PO qd x 2d, 2 tab P O qd x 2d, 1 tab PO qd x 2d, 1/2 tab PO qd x 2d PREDNISONE 20034692261 No Lo nger Active Carlton Hu MD Active FLUTICASONE PROPIONATE 50 MCG/ACT NASAL SUSPENSION 1 t o 2 sprays each nostril daily FLUTICASONE PROPIONATE 83838494735 No Longer Ac tive Blaine HERNANDEZ Active CHERATUSSIN AC 100-10 MG/5ML ORAL SYRUP 1 tsp by mouth every 4 hours as needed for cough GUAIFENESIN-CODEINE 25159959912 No Longe r Active Blaine HERNANDEZ Active PROMETHAZINE-CODEINE 6.25-10 MG/5ML ORAL SYRUP 1 tsp b y mouth every 6 hours if needed for cough PROMETHAZINE-CODEINE 07956998656 No Longer Active Blaine HERNANDEZ Active CHERATUSSIN AC 100-10 MG/5ML ORAL SYRUP 1 tsp by mouth every 4 hours as needed for cough GUAIFENESIN-CODEINE 81039837712 No Longe r Active Blaine HERNANDEZ Active ZITHROMAX Z-REYNA 250 MG ORAL TABLET 2 today, then 1 daily for 4 d ays AZITHROMYCIN 22722973907 No Longer Active Columba Raida Act nael ZITHROMAX 250 MG ORAL TABLET 2 po today, then 1 po q days 2-5 20 14/03/21 AZITHROMYCIN 78022309217 No Longer Active Carlton Hu MD Active ZITHROMAX Z-REYNA 250 MG ORAL TABLET 2 today, then 1 daily for 4 d ays AZITHROMYCIN 81324007469 No Longer Active Columba Raida Act nael AUGMENTIN 875-125 MG ORAL TABLET 1 po BID x 10 days 13/01/20 AMOXICILLIN-POT CLAVULANATE 52353682234 No Longer Active Diya Daphnebrayan KHAN Active ZITHROMAX 250 MG ORAL TABLET 2 po today, then 1 po q days 2-5 20 12/08/14 AZITHROMYCIN 25993296825 No Longer Active Carlton Hu MD Active TRAMADOL HCL 50 MG ORAL TABLET 1 po tid with ES Tylenol TRAMADOL HCL 89247832379 Active ALFREDO oHlly Active PREMARIN 0.625 MG ORAL TABLET TAKE 1 TAB BY MOUTH DAILY ESTROGENS CONJUGATED 73970231932 No Longer Active Ridge Bess DO A ctive CYMBALTA 30 MG ORAL CAPSULE DELAYED RELEASE PARTICLES 1 cap by mouth daily DULOXETINE HCL 36349526328 No Longer Active Ridge tam DO Active AMOXICILLIN 500 MG ORAL CAPSULE 1 tab by mouth 3 times daily x 10 days AMOXICILLIN 58884436530 No Longer Active Carlton ubstamante MD Active AMOXICILLIN 500 MG ORAL CAPSULE 1 tab by mouth 3 times daily x 10 days AMOXICILLIN 95722679844 No Longer Active Carlton bustamante MD Active PROMETHAZINE-CODEINE 6.25-10 MG/5ML ORAL SYRUP 1 tsp b y mouth every 8 hours prn cough PROMETHAZINE-CODEINE 97917971223 No Longer Acti ve Carlton Hu MD Active MEDROL 4 MG ORAL TABLET THERAPY PACK 6 pills x 1 day, then 5 pills x 1 day then 4 pills x 1 day, then 3 pills x 1 day, then 2 pills x 1 day, then 1 pill x 1 day, then stop METHYLPREDNISOLONE 24819514599 No Long er Active Perez Mora MD Active AZITHROMYCIN 250 MG ORAL TABLET 2 po qd x 1 day, then 1 po q d x 4 days AZITHROMYCIN 90923970947 No Longer Active Perez Ambriz MD Active SYMBICORT 160-4.5 MCG/ACT INHALATION AEROSOL 2 puffs bid wit h rinse after BUDESONIDE-FORMOTEROL FUMARATE 03105751206 N o Longer Active Perez Mora MD Active LYRICA 75 MG ORAL CAPSULE TAKE 1 CAPSULE BY MOUTH TWICE DAILY PREGABALIN 07487513263 No Longer Active Carlton Hu MD Acti ve TOPAMAX 25 MG ORAL TABLET 1 qHS x 1 week, then 1 BID x 1 week, then 1 qAM and 2 qHS x 1 week, then 2 BID (migraine prevention) T OPIRAMATE 10847096761 No Longer Active Jerica FUENTES Active TOPAMAX 50 MG ORAL TABLET take 1 tab po BID for migraines. 07/02 TOPIRAMATE 71307308225 No Longer Active Jerica FUENTES Active TRIAMCINOLONE ACETONIDE 0.1 % EXTERNAL CREAM apply three roger es daily prn rash TRIAMCINOLONE ACETONIDE 33220189419 No Longer Active Carlton Hu MD Active PAXIL 40 MG ORAL TABLET take 1 tab po qday for depression 0 PAROXETINE HCL 30746372873 Active Carlton Hu MD Active CHERATUSSIN AC 100-10 MG/5ML ORAL SYRUP 5ml po q6hr PRN Cough 20 13/04/14 GUAIFENESIN-CODEINE 08388118755 No Longer Active Carlton Hu MD Active MEDROL 4 MG ORAL TABLET THERAPY PACK 6 tabs on day 1, 5 tabs on day 2, 4 tabs on day 3, 3 tabs on day 4, 2 tabs on day 5, 1 tab on day 6 2013 METHYLPREDNISOLONE 38724067312 No Longer Active Perez Mora MD Active AZITHROMYCIN 250 MG ORAL TABLET 2 po qd x 1 day, then 1 po q d x 4 days AZITHROMYCIN 13950630187 No Longer Active Perez Ambriz MD Active PROPRANOLOL HCL 60 MG ORAL TABLET 1 PO Q D PROPRANOLOL HCL 40375053848 No Longer Active Perez Mora MD Activ e CHERATUSSIN AC 100-10 MG/5ML ORAL SYRUP take one tsp po Q 6h ours prn cough GUAIFENESIN-CODEINE 43405467342 No Longer Active Zia Mroa MD Active AUGMENTIN 875-125 MG ORAL TABLET 1 tab by mouth twice daily with food AMOXICILLIN-POT CLAVULANATE 97177599659 No Longer Act nael Mora MD Active CHERATUSSIN AC 100-10 MG/5ML ORAL SYRUP 1 tsp by mouth every 4 hours as needed for cough GUAIFENESIN-CODEINE 26371682154 No Longe r Active Hugo Restrepo MD Active ACETAMINOPHEN-CODEINE #3 300-30 MG ORAL TABLET 1 PO Q 4-6 HRS SD N PAIN ACETAMINOPHEN-CODEINE 19577948409 No Longer Active Hugo Restrepo MD Active LEVAQUIN 500 MG ORAL TABLET take one po QD LEVO FLOXACIN 40920058130 No Longer Active Griffin HERNANDEZ Active PREDNISONE 20 MG ORAL TABLET Take 3 tabs daily for 3 d ays, 2 tabs daily for 3 days, 1 tab daily for 3 days, 1/2 tab daily for 3 days 11/07 PREDNISONE 45554745237 No Longer Active Carlton Hu MD Acti ve AVELOX 400 MG ORAL TABLET 1 tab by mouth daily MOXIFLOXACIN HCL 15025445371 No Longer Active Carlton Hu MD Active CHERATUSSIN AC 100-10 MG/5ML ORAL SYRUP 1 tsp by mouth every 4 hours as needed for cough GUAIFENESIN-CODEINE 15671313800 No Longe r Active Hugo Restrepo MD Active AVELOX 400 MG ORAL TABLET 1 tab by mouth daily MOXIFLOXACIN HCL 33612898801 No Longer Active Marcy De La Rosa MD PhD Active TERBINAFINE HCL 250 MG ORAL TABLET 1 qDay T ERBINAFINE HCL 32971763197 No Longer Active Marcy De La Rosa MD PhD Active CHERATUSSIN AC 100-10 MG/5ML ORAL SYRUP 1 tsp by mouth every 4 hours as needed for cough GUAIFENESIN-CODEINE 36187380243 No Longe r Active Marcy De La Rosa MD PhD Active AVELOX 400 MG ORAL TABLET 1 tab by mouth daily MOXIFLOXACIN HCL 32760367394 No Longer Active Marcy De La Rosa MD PhD Active HYDROCODONE-ACETAMINOPHEN 5-325 MG ORAL TABLET 1 po q 6hr PRN co ugh HYDROCODONE-ACETAMINOPHEN 64697006479 No Longer Active Marcy De La Rosa MD PhD Active PREDNISONE 20 MG ORAL TABLET 2 tabs daily for 3 days, 1 tab daily for 3 days, 1/2 tab daily for 2 days PREDNISONE 11083516472 No Longer Active Carlton Hu MD Active CEFDINIR 300 MG ORAL CAPSULE by mouth twice a day 2011 CEFDINIR 58307531154 No Longer Active Carlton Hu MD Acti ve HYDROCHLOROTHIAZIDE 25 MG ORAL TABLET 1 TAB PO DAILY HYDROCHLOROTHIAZIDE 08590165257 Active Carlton Hu MD A ctive ACETAMINOPHEN-CODEINE #3 300-30 MG ORAL TABLET 1 tablet po q 4-6 hrs prn pain ACETAMINOPHEN-CODEINE 36752095714 No Longer Active Ridge Bess DO Active ZITHROMAX 250 MG ORAL TABLET 2 po today, then 1 po q days 2-5 20 03/07/07 AZITHROMYCIN 80314068399 No Longer Active Carlton Hu MD Active CHERATUSSIN AC 100-10 MG/5ML ORAL SYRUP take 1 tsp po q4-6 h ours prn cough GUAIFENESIN-CODEINE 89417806932 No Longer Active Jayden Hu MD Active ACETAMINOPHEN-CODEINE #3 300-30 MG ORAL TABLET 1 PO Q 4-6 HR PRN PAIN ACETAMINOPHEN-CODEINE 48332173543 No Longer Active Arnol Hu MD Active LORTAB 7.5-500 MG/15ML ORAL ELIXIR 7.5 ml po q 4 hour prn cough HYDROCODONE-ACETAMINOPHEN 57284737861 No Longer Active Carlton Hu MD Active PREDNISONE 20 MG ORAL TABLET 1 po bid 3 days, then 1 po q day 3 days PREDNISONE 49708901099 No Longer Active Carlton Hu MD Active CEFDINIR 300 MG ORAL CAPSULE by mouth twice a day 2011 CEFDINIR 17427178772 No Longer Active Carlton Hu MD Acti ve CEFDINIR 300 MG ORAL CAPSULE by mouth twice a day 2010 CEFDINIR 54382905537 No Longer Active Carlton Hu MD Acti ve CEFDINIR 300 MG ORAL CAPSULE by mouth twice a day 2010 CEFDINIR 51213169791 No Longer Active Carlton Hu MD Acti ve TESSALON PERLES 100 MG ORAL CAPSULE 1 tablet by mouth 3 times daily as needed for cough BENZONATATE 54603322320 No Longer Active Carlton Hu MD Active CEFDINIR 300 MG ORAL CAPSULE by mouth twice a day 2010 CEFDINIR 93813266744 No Longer Active Carlton Hu MD Acti ve ZITHROMAX Z-REYNA 250 MG ORAL TABLET 2 today, then 1 daily for 4 d ays AZITHROMYCIN 80443506887 No Longer Active Hugo Restrepo MD Active TESSALON PERLES 100 MG ORAL CAPSULE 1 tablet by mouth 3 times daily as needed for cough TESSALON PERLES 100 MG ORAL CAPSULE 04971 7 BENZONATATE Inactive PREDNISONE 20 MG ORAL TABLET 1 po bid 3 days, then 1 po q day 3 days PREDNISONE 20 MG ORAL TABLET 602838 PREDNISONE [place] ctive LORTAB 7.5-500 MG/15ML ORAL [...] cough CHERATUSSIN AC 100-10 MG/5ML ORAL SYRUP 186159 GUAIFENESIN-CODEINE Inactive ACETAMINOPHEN-CODEINE #3 300-30 MG ORAL TABLET 1 tablet po q 4-6 hrs prn pain ACETAMINOPHEN-CODEINE #3 300-30 MG ORAL TABLET ACETAMINOPHEN-CODEINE Inactive HYDROCODONE-ACETAMINOPHEN 5-325 MG ORAL TABLET 1 po q 6hr PRN co ugh HYDROCODONE-ACETAMINOPHEN 5-325 MG ORAL TABLET 665929 HYDROCODONE-ACETAMINOPHEN Inactive AVELOX 400 MG ORAL TABLET 1 tab by mouth daily AVELOX 400 MG ORAL TABLET 306791 MOXIFLOXACIN HCL Inactive CHERATUSSIN AC 100-10 MG/5ML ORAL SYRUP 1 tsp by mouth every 4 hours as needed for cough CHERATUSSIN AC 100-10 MG/5ML ORAL SYRUP 9 30881 GUAIFENESIN-CODEINE Inactive TERBINAFINE HCL 250 MG ORAL TABLET 1 qDay 07/08 TERBINAFINE HCL 250 MG ORAL TABLET 552679 TERBINAFINE HCL Inactive CHERATUSSIN AC 100-10 MG/5ML ORAL SYRUP 1 tsp by mouth every 4 hours as needed for cough CHERATUSSIN AC 100-10 MG/5ML ORAL SYRUP 9 76530 GUAIFENESIN-CODEINE Inactive ACETAMINOPHEN-CODEINE #3 300-30 MG ORAL TABLET 1 PO Q 4-6 HRS SD N PAIN ACETAMINOPHEN-CODEINE #3 300-30 MG ORAL TABLET ACETAMINOPHEN-CODEINE Inactive CHERATUSSIN AC 100-10 MG/5ML ORAL SYRUP 1 tsp by mouth every 4 hours as needed for cough CHERATUSSIN AC 100-10 MG/5ML ORAL SYRUP 9 06988 GUAIFENESIN-CODEINE Inactive AUGMENTIN 875-125 MG ORAL TABLET 1 tab by mouth twice daily with food AUGMENTIN 875-125 MG ORAL TABLET 130412 AMOXICIL MADELINE-POT CLAVULANATE Inactive CHERATUSSIN AC 100-10 MG/5ML ORAL SYRUP take one tsp po Q 6h ours prn cough CHERATUSSIN AC 100-10 MG/5ML ORAL SYRUP 836323 GUAIFENESIN-CODEINE Inactive PROPRANOLOL HCL 60 MG ORAL TABLET 1 PO Q D PROPRANOLOL HCL 60 MG ORAL TABLET 107390 PROPRANOLOL HCL Inactive TOPAMAX 50 MG ORAL TABLET take 1 tab po BID for migraines. 07/02 TOPAMAX 50 MG ORAL TABLET 963659 TOPIRAMATE Inacti ve TOPAMAX 25 MG ORAL TABLET 1 qHS x 1 week, then 1 BID x 1 week, then 1 qAM and 2 qHS x 1 week, then 2 BID (migraine prevention) TOPAMAX 25 MG ORAL TABLET 745947 TOPIRAMATE Inactive LYRICA 75 MG ORAL CAPSULE TAKE 1 CAPSULE BY MOUTH TWICE DAILY LYRICA 75 MG ORAL CAPSULE PREGABALIN Inactive SYMBICORT 160-4.5 MCG/ACT INHALATION AEROSOL 2 puffs bid wit h rinse after SYMBICORT 160-4.5 MCG/ACT INHALATION AEROSOL BUDESONIDE- FORMOTEROL FUMARATE Inactive PROMETHAZINE-CODEINE 6.25-10 MG/5ML ORAL SYRUP 1 tsp b y mouth every 8 hours prn cough PROMETHAZINE-CODEINE 6.25-10 MG/ 5ML ORAL SYRUP 510513 PROMETHAZINE-CODEINE Inactive CYMBALTA 30 MG ORAL CAPSULE DELAYED RELEASE PARTICLES 1 cap by mouth daily CYMBALTA 30 MG ORAL CAPSULE DELAYED RELE ASE PARTICLES 441398 DULOXETINE HCL Inactive PREMARIN 0.625 MG ORAL TABLET TAKE 1 TAB BY MOUTH DAILY PREMARIN 0.625 MG ORAL TABLET ESTROGENS CONJUGATED Inactive CHERATUSSIN AC 100-10 MG/5ML ORAL SYRUP 1 tsp by mouth every 4 hours as needed for cough CHERATUSSIN AC 100-10 MG/5ML ORAL SYRUP 9 75429 GUAIFENESIN-CODEINE Inactive PROMETHAZINE-CODEINE 6.25-10 MG/5ML ORAL SYRUP 1 tsp b y mouth every 6 hours if needed for cough PROMETHAZINE-CODEINE 6.25-10 MG/5ML ORAL SYRUP 210128 PROMETHAZINE-CODEINE Inactive CHERATUSSIN AC 100-10 MG/5ML ORAL SYRUP 1 tsp by mouth every 4 hours as needed for cough CHERATUSSIN AC 100-10 MG/5ML ORAL SYRUP 9 31463 GUAIFENESIN-CODEINE Inactive FLUTICASONE PROPIONATE 50 MCG/ACT NASAL SUSPENSION 1 t o 2 sprays each nostril daily FLUTICASONE PROPIONATE 50 MCG/AC T NASAL SUSPENSION 3344524 FLUTICASONE PROPIONATE Inactive PREDNISONE 20 MG ORAL TABLET 3 tab PO qd x 2d, 2 tab P O qd x 2d, 1 tab PO qd x 2d, 1/2 tab PO qd x 2d PREDNISONE 20 MG ORAL TAB LET 973560 PREDNISONE Inactive LEVOFLOXACIN 500 MG ORAL TABLET 1 tab PO daily x 10 days LEVOFLOXACIN 500 MG ORAL TABLET 593052 LEVOFLOXACIN Inactive CYCLOBENZAPRINE HCL 10 MG ORAL TABLET 1 tablet by mouth BID prn had pain CYCLOBENZAPRINE HCL 10 MG ORAL TABLET 961801 CYCLOBENZAPRINE HCL Inactive ZOCOR 40 MG ORAL TABLET 1 tab by mouth daily 4 ZOCOR 40 MG ORAL TABLET 287860 SIMVASTATIN Inactive TUSSIONEX PENNKINETIC ER 10-8 MG/5ML [...] FLUTICASONE PROPIO EFE 50 MCG/ACT NASAL SUSPENSION 2283082 FLUTICASONE PROPIONATE Inactive TUSSIONEX PENNKINETIC ER 10-8 [...] three days PREDNISONE 20 MG ORAL TABLET 068865 PREDNIS ONE Inactive PROAIR HFA 108 (90 BASE) MCG/ACT INHALATION AEROSOL SO LUTION 2 puffs four times a day as needed PROAIR HFA 108 (90 B ASE) MCG/ACT INHALATION AEROSOL SOLUTION ALBUTEROL SULFATE Inactive PREDNISONE 20 MG ORAL TABLET two tabs by mouth today, then one tab by mouth days two and three and four PREDNISONE 20 MG ORAL TAB LET 258066 PREDNISONE Inactive TUSSIONEX PENNKINETIC ER 10-8 MG/5ML [...] bid 04/20 TOPAMAX 100 MG ORAL TABLET 133799 TOPIRAMATE Inactive CYMBALTA 30 MG ORAL CAPSULE DELAYED RELEASE PARTICLES 1 cap by mouth daily for depression CYMBALTA 30 MG ORAL CAPSULE DELAYED RELEASE PARTICLES 138676 DULOXETINE HCL Inactive ZITHROMAX Z-REYNA 250 MG ORAL TABLET 2 today, then 1 daily for 4 d ays ZITHROMAX Z-REYNA 250 MG ORAL TABLET 744365 AZITHROMYCIN Inactive CEFDINIR 300 MG ORAL CAPSULE by mouth twice a day 2010 CEFDINIR 300 MG ORAL CAPSULE 20020704 CEFDINIR Inactive CEFDINIR 300 MG ORAL CAPSULE by mouth twice a day 2010 CEFDINIR 300 MG ORAL CAPSULE 558641 CEFDINIR Inactive CEFDINIR 300 MG ORAL CAPSULE by mouth twice a day 2010 CEFDINIR 300 MG ORAL CAPSULE 937838 CEFDINIR Inactive CEFDINIR 300 MG ORAL CAPSULE by mouth twice a day 2011 CEFDINIR 300 MG ORAL CAPSULE 277986 CEFDINIR Inactive ZITHROMAX 250 MG ORAL TABLET 2 po today, then 1 po q days 2-5 20 03/07/07 ZITHROMAX 250 MG ORAL TABLET 640002 AZITHROMYCIN [place] ctive CEFDINIR 300 MG ORAL CAPSULE by mouth twice a day 2011 CEFDINIR 300 MG ORAL CAPSULE 024462 CEFDINIR Inactive PREDNISONE 20 MG ORAL TABLET 2 tabs daily for 3 days, 1 tab daily for 3 days, 1/2 tab daily for 2 days PREDNISONE 20 MG ORAL T ABLET 781344 PREDNISONE Inactive AVELOX 400 MG ORAL TABLET 1 tab by mouth daily AVELOX 400 MG ORAL TABLET 822850 MOXIFLOXACIN HCL Inactive AVELOX 400 MG ORAL TABLET 1 tab by mouth daily AVELOX 400 MG ORAL TABLET 279444 MOXIFLOXACIN HCL Inactive PREDNISONE 20 MG ORAL TABLET Take 3 tabs daily for 3 d ays, 2 tabs daily for 3 days, 1 tab daily for 3 days, 1/2 tab daily for 3 days 11/07 PREDNISONE 20 MG ORAL TABLET 829849 PREDNISONE Inactive LEVAQUIN 500 MG ORAL TABLET take one po QD LEVAQUIN 500 MG ORAL TABLET 663981 LEVOFLOXACIN Inactive AZITHROMYCIN 250 MG ORAL TABLET 2 po qd x 1 day, then 1 po q d x 4 days AZITHROMYCIN 250 MG ORAL TABLET 391144 AZITHROMY GIOVANNI Inactive MEDROL 4 MG ORAL TABLET THERAPY PACK 6 tabs on day 1, 5 tabs on day 2, 4 tabs on day 3, 3 tabs on day 4, 2 tabs on day 5, 1 tab on day 6 2013 MEDROL 4 MG ORAL TABLET THERAPY PACK 727337 METHYLPREDNISOLONE [place] ctive CHERATUSSIN AC 100-10 MG/5ML ORAL SYRUP 5ml po q6hr PRN Cough 20 13/04/14 CHERATUSSIN AC 100-10 MG/5ML ORAL SYRUP 916419 GUAIFENE SIN-CODEINE Inactive TRIAMCINOLONE ACETONIDE 0.1 % EXTERNAL CREAM apply three roger es daily prn rash TRIAMCINOLONE ACETONIDE 0.1 % EXTERNAL CREAM 101 4314 TRIAMCINOLONE ACETONIDE Inactive AZITHROMYCIN 250 MG ORAL TABLET 2 po qd x 1 day, then 1 po q d x 4 days AZITHROMYCIN 250 MG ORAL TABLET 836479 AZITHROMY GIOVANNI Inactive MEDROL 4 MG ORAL TABLET THERAPY PACK 6 pills x 1 day, then 5 pills x 1 day then 4 pills x 1 day, then 3 pills x 1 day, then 2 pills x 1 day, then 1 pill x 1 day, then stop MEDROL 4 MG ORAL TABLET THERAPY PACK [id number] METHYLPREDNISOLONE Inactive AMOXICILLIN 500 MG ORAL CAPSULE 1 tab by mouth 3 times daily x 10 days AMOXICILLIN 500 MG ORAL CAPSULE [id number] AMOXICILL IN Inactive AMOXICILLIN 500 MG ORAL CAPSULE 1 tab by mouth 3 times daily x 10 days AMOXICILLIN 500 MG ORAL CAPSULE 157961 AMOXICILL IN Inactive ZITHROMAX 250 MG ORAL TABLET 2 po today, then 1 po q days 2-5 20 12/08/14 ZITHROMAX 250 MG ORAL TABLET [id number] AZITHROMYCIN Greer ctive AUGMENTIN 875-125 MG ORAL TABLET 1 po BID x 10 days 20 13/01/20 AUGMENTIN 875-125 MG ORAL TABLET [id number] AMOXICILLIN-POT CLAVULANATE Inactive ZITHROMAX Z-REYNA 250 MG ORAL TABLET 2 today, then 1 daily for 4 d ays ZITHROMAX Z-REYNA 250 MG ORAL TABLET 155905 AZITHROMYCIN Inactive ZITHROMAX 250 MG ORAL TABLET 2 po today, then 1 po q days 2-5 20 14/03/21 ZITHROMAX 250 MG ORAL TABLET 284145 AZITHROMYCIN Greer ctive ZITHROMAX Z-REYNA 250 MG ORAL TABLET 2 today, then 1 daily for 4 d ays ZITHROMAX Z-REYNA 250 MG ORAL TABLET 154697 AZITHROMYCIN Inactive CEFDINIR 300 MG ORAL CAPSULE 1 po BID x 10 days 06/21 CEFDINIR 300 MG ORAL CAPSULE 379216 CEFDINIR Inactive ZITHROMAX 250 MG ORAL TABLET 2 po today, then 1 po q days 2-5 20 13/08/10 ZITHROMAX 250 MG ORAL TABLET 557058 AZITHROMYCIN [place] [facility] LEVAQUIN 500 MG ORAL TABLET 1 tablet by mouth daily 13/09/24 LEVAQUIN 500 MG ORAL TABLET 846130 LEVOFLOXACIN Inactive SINGULAIR 10 MG ORAL TABLET 1 po qday for allergies 20 14/01/12 SINGULAIR 10 MG ORAL TABLET 660977 MONTELUKAST SODIUM Inactive AMOXICILLIN 500 MG ORAL CAPSULE 2 po BID x 10 days 201 09/29/08 AMOXICILLIN 500 MG ORAL CAPSULE 551810 AMOXICILLIN Inactive PREDNISONE 20 MG ORAL TABLET 2 tabs daily for 3 days, 1 tab daily for 3 days, 1/2 tab daily for 2 days PREDNISONE 20 MG ORAL T ABLET 519651 PREDNISONE Inactive ZITHROMAX Z-REYNA 250 MG ORAL TABLET 2 today, then 1 daily for 4 d ays ZITHROMAX Z-REYNA 250 MG ORAL TABLET 638639 AZITHROMYCIN Inactive PREDNISONE 20 MG ORAL TABLET 2 tabs daily for 3 days, 1 tab daily for 3 days, 1/2 tab daily for 2 days PREDNISONE 20 MG ORAL T ABLET 750061 PREDNISONE Inactive ZITHROMAX 250 MG ORAL TABLET 2 po today, then 1 po q days 2-5 20 14/09/04 ZITHROMAX 250 MG ORAL TABLET 082531 AZITHROMYCIN [place] [facility] AMOXICILLIN 500 MG ORAL CAPSULE 1 cap by mouth three times a day AMOXICILLIN 500 MG ORAL CAPSULE 357141 AMOXICILLIN Inactive TERBINAFINE HCL 250 MG ORAL TABLET 1 qDay for nail fungus 7 TERBINAFINE HCL 250 MG ORAL TABLET 537630 TERBINAFINE HCL Inact nael AUGMENTIN 875-125 MG ORAL TABLET 1 po BID x 10 days 16/03/22 AUGMENTIN 875-125 MG ORAL TABLET 757451 AMOXICILLIN-POT CLAVULANATE Inactive PREDNISONE 20 MG ORAL TABLET 2 po qd x 5 days PREDNISONE 20 MG ORAL TABLET 509029 PREDNISONE Inactive AZITHROMYCIN 250 MG ORAL TABLET 2 po qd x 1 day, then 1 po q d x 4 days AZITHROMYCIN 250 MG ORAL TABLET 842701 AZITHROMY GIOVANNI Inactive PREDNISONE 50 MG ORAL TABLET Take 50 mg dialy for 6 day s 7 PREDNISONE 50 MG ORAL TABLET 313637 PREDNISONE Inactive AUGMENTIN 875-125 MG ORAL TABLET 1 po BID x 10 days 18/04/16 AUGMENTIN 875-125 MG ORAL TABLET 101725 AMOXICILLIN-POT CLAVULANATE Inactive DOXYCYCLINE HYCLATE 100 MG ORAL CAPSULE 1 cap by mouth twice latasha ly DOXYCYCLINE HYCLATE 100 MG ORAL CAPSULE 1312218 DOXYCYCL INE HYCLATE Inactive PREDNISONE 20 MG ORAL TABLET Take 2 tabs day 1 and 2 and 1 t ab days 3 and 4 PREDNISONE 20 MG ORAL TABLET 000684 PREDNISONE Inactive Vital Signs Date Name Value [...] - Chem istry sodium, serum 139 mmol/L 244-592 9075/10/12 potassium, serum 3.8 mmol/L 3.5-5.2 chloride, serum 102 mmol/L 98-107 carbon dioxide, venous blood 29.4 mmol/L 21.0-32 .0 blood glucose 103 mg/dL 65-95 calcium, serum 8.8 mg/dL 8.5-10.1 urea nitrogen, blood 10 mg/dL 7-18 creatinine, serum 0.97 mg/dL 0.60-1.30 Estimated Glomerular Filtration Rate (calc) 62 (?) mL/min/1.73m2 = OR > 60 mL/min Encounters Code Encounter Date Provider Facility [id number] Vst-Est Level IV 08:41:[address] Carlton Hu MD [facility] CPT-69740 Level 3 Est. Patient 09:46:49 CLAIMS TECHNICIAN David lion [facility] [id number] Vst-Est Level III 11:12:16 CDT Yanet Bess DO [facility] CPT-63439 Level 3 Est. Patient 11:34:49 CLAIMS TECHNICIAN Perez Mora MD [facility] CPT-41999 Level 4 Est. Patient 09:51:32 CLAIMS TECHNICIAN Carlton rich MD [facility] CPT-80409 Level 3 Est. Patient 10:26:00 CLAIMS TECHNICIAN Elise stephenson [facility] CPT-89904 Level 3 Est. Patient 13:35:41 CLAIMS TECHNICIAN Carlton rich MD [facility]-07612 Level 3 Est. Patient 10:03:52 CLAIMS TECHNICIAN Carlton rich MD [facility] CPT-78872 Level 3 Est. Patient 12:17:50 CDT Hugo Restrepo MD [facility]-84984 Level 3 Est. Patient 13:42:38 CDT Elise Are [facility] CPT-55461 Level 3 Est. Patient 13:23:51 CDT Diya cobian [facility] CPT-55832 Level 3 Est. Patient 14:22:19 CLAIMS TECHNICIAN Astridgreer Mariana cobian [facility] CPT-16898 Level 3 Est. Patient 10:11:46 CDT Carlton rich MD [facility] CPT-80182 Level 3 Est. Patient 17:29:43 CDT Elise Are [facility] CPT-04603 Level 3 Est. Patient 11:58:06 CDT Elise Are [facility] CPT-74393 Level 4 Est. Patient 14:36:51 CDT Carlton rich MD [facility] CPT-24556 Level 3 Est. Patient 18:16:00 CLAIMS TECHNICIAN Blaine HERNANDEZ [facility] CPT-42089 Level 3 Est. Patient 09:45:49 CLAIMS TECHNICIAN Carlton rich MD [facility] CPT-63607 Level 3 Est. Patient 13:19:20 CDT Carlton rich MD [facility] CPT-70285 Level 3 Est. Patient 13:06:43 CDT Ridge tam DO [facility] CPT-22489 Level 3 Est. Patient 10:03:07 CDT Perez Mora MD [facility] CPT-31102 Level 3 Est. Patient 19:50:35 CLAIMS TECHNICIAN Carlton rich MD [facility] CPT-67761 Level 4 Est. Patient 18:05:01 CLAIMS TECHNICIAN Carlton rich MD [facility] CPT-86171 Level 3 Est. Patient 10:45:55 CLAIMS TECHNICIAN Hugo Restrepo MD [facility] CPT-33838 Level 3 Est. Patient 14:12:49 CDT Griffin HERNANDEZ [facility] CPT-25842 Level 3 Est. Patient 17:37:24 CDT Carlton rich MD [facility] CPT-09014 Level 3 Est. Patient 16:51:54 CDT Carlton rich MD [facility] CPT-20429 Level 3 Est. Patient 12:18:11 CDT Hugo Restrepo MD [facility] CPT-62669 Level 3 Est. Patient 11:30:25 CDT Marcy crisostomo MD PhD [facility] CPT-43579 Level 3 Est. Patient 12:00:47 CLAIMS TECHNICIAN Carlton rich MD [facility] CPT-45828 Level 3 Est. Patient 16:31:06 CLAIMS TECHNICIAN Carlton rich MD [facility] CPT-06359 Level 3 Est. Patient 16:23:24 CLAIMS TECHNICIAN Ridge tam [facility] CPT-24083 Level 3 Est. Patient 12:34:12 CDT Carlton rich MD [facility] CPT-67260 Level 2 Est. Patient 15:43:33 CDT Robi armstrong MD [facility] CPT-78107 Level 4 Est. Patient 14:04:44 CDT Carlton rich MD [facility] CPT-34948 Level 3 Est. Patient 05:47:59 CDT Ridge tam [facility] CPT-92107 Level 3 Est. Patient 13:12:53 CLAIMS TECHNICIAN Carlton rich MD [facility] CPT-43618 Level 3 Est. Patient 14:26:53 CDT Hugo [...] CPT-J1100 Decadron 6mg (Dexamethasone) 14:32:13 CDT 2 CPT-36879 Hip bilat min 2V w AP pelvis 13:16:20 CDT 2 CPT-73401 Pelvis only 13:07:33 CDT CPT-74082 Spec Collection and Handling Fee 11:25:12 C DT CPT-50651 Fluzone Quadrivalent Intramuscular Suspe nsion 0.5 ML 14:31:55 CDT CPT-50424 Abx/Therapy Injection 13:28:47 CLAIMS TECHNICIAN CPT-J2930 Solu Medrol 125 mg (Methyl Prednisolone Sodium Succinate) 12:00:47 CLAIMS TECHNICIAN CPT-65317 Venipuncture Draw Fee 11:33:31 CDT CPT-73836 EKG Trac and Interp 11:21:09 CDT CPT-13711 Chest 2V Frontal and Lat 11:21:09 CDT 12/15 CPT-13274 Venipuncture Draw Fee 08:02:34 CDT CPT-79435 Chest 2V Frontal and Lat 05:47:59 CDT 06/05
--- OUTSIDE RECORDS SUMMARY | 2019-10-08 09:10 | XMS REPORT | Clinical Summary ---
Author Author Caitlin, Juliana Martinez Organization [facility] Address Unknown Phone Unavailable [...] by mouth daily for depression DULOXETINE HCL [id number] No Longer Active Carlton Hu MD Active CYMBALTA 60 MG ORAL CAPSULE DELAYED RELEASE PARTICLES 1 cap by mouth daily for mood and pain DULOXETINE HCL 79117173025 Active Carlton Hu MD Active TUSSIONEX PENNKINETIC ER 10-8 MG/5ML ORAL SUSPENSION E XTENDED RELEASE 5ml po q12hr PRN Cough HYDROCOD POLST-CHLORPHEN POLST 90083100068 Active David Marianne PHARMACY DATA ANALYST Active PREDNISONE 20 MG ORAL TABLET Take 2 tabs day 1 and 2 and 1 t ab days 3 and 4 PREDNISONE 52507647858 No Longer Active David Marianne PHARMACY DATA ANALYST Active DOXYCYCLINE HYCLATE 100 MG ORAL CAPSULE 1 cap by mouth twice latasha ly DOXYCYCLINE HYCLATE 61162174160 No Longer Active David Lopes PHARMACY DATA ANALYST Active TOPAMAX 100 MG ORAL TABLET Take 1 tablet po bid TOPIRAMATE 21221596321 No Longer Active David Marianne PHARMACY DATA ANALYST Active TUSSIONEX PENNKINETIC ER 10-8 MG/5ML ORAL SUSPENSION E XTENDED RELEASE 5ml po q12hr PRN Cough HYDROCOD POLST-CHLORPHEN POLST 5 6214529514 No Longer Active David Marianne PHARMACY DATA ANALYST Active AUGMENTIN 875-125 MG ORAL TABLET 1 po BID x 10 days 18/04/16 AMOXICILLIN-POT CLAVULANATE 22044344414 No Longer Active David Lopes PHARMACY DATA ANALYST Active PREDNISONE 50 MG ORAL TABLET Take 50 mg dialy for 6 day s 7 PREDNISONE 72560600229 No Longer Active David Marianne PHARMACY DATA ANALYST Active TUSSIONEX PENNKINETIC ER 10-8 MG/5ML ORAL SUSPENSION E XTENDED RELEASE 5ml po q12hr PRN Cough HYDROCOD POLST-CHLORPHEN POLST 5 3431692098 No Longer Active Cherelle Torres RN Active PREDNISONE 20 MG ORAL TABLET two tabs by mouth today, then one tab by mouth days two and three and four PREDNISONE 94501868212 No Lo nger Active Cherelle Torres RN Active AZITHROMYCIN 250 MG ORAL TABLET 2 po qd x 1 day, then 1 po q d x 4 days AZITHROMYCIN 51181834479 No Longer Active Ridge Bess DO Active PREDNISONE 20 MG ORAL TABLET 2 po qd x 5 days P REDNISONE 38022082480 No Longer Active Perez Mora MD Active PROAIR HFA 108 (90 BASE) MCG/ACT INHALATION AEROSOL SO LUTION 2 puffs four times a day as needed ALBUTEROL SULFATE 06765160327 No Long er Active Becky AGUILARA Active ASPIRIN 81 MG ORAL TABLET 1 po qd ASPIRIN 38792379389 Active Carlton Hu MD Active PREDNISONE 20 MG ORAL TABLET 1 tab twice daily for 3 d ay, then one daily for three days PREDNISONE 66155068887 No Longer Active Carlton Hu MD Active AUGMENTIN 875-125 MG ORAL TABLET 1 po BID x 10 days 16/03/22 AMOXICILLIN-POT CLAVULANATE 21907690410 No Longer Active Elise Garcia APRN Active TERBINAFINE HCL 250 MG ORAL TABLET 1 qDay for nail fungus 7 TERBINAFINE HCL 46841804389 No Longer Active Carlton Hu MD A ctive AMOXICILLIN 500 MG ORAL CAPSULE 1 cap by mouth three times a day AMOXICILLIN 06302850610 No Longer Active Carlton Hu MD Active ELMIRON 100 MG ORAL CAPSULE 2 tablets in the am and 1 tablet at hs PENTOSAN POLYSULFATE SODIUM 37062292581 No Longer Active Robert jade Hu MD Active MUCINEX D 60-600 MG ORAL TABLET EXTENDED RELEASE 12 HOUR 1 t ab po q am PSEUDOEPHEDRINE-GUAIFENESIN 99185659800 No Longer Act nael Carlton Hu MD Active MUCINEX DM MAXIMUM STRENGTH 60-1200 MG ORAL TABLET EXT ENDED RELEASE 12 HOUR 1 tab po q am DEXTROMETHORPHAN-GUAIFENESIN 35479977232 No Longer Active Carlton Hu MD Active TUSSIONEX PENNKINETIC ER 10-8 MG/5ML ORAL SUSPENSION E XTENDED RELEASE 5ml po q12hr PRN Cough HYDROCOD POLST-CHLORPHEN POLST 5 7196261816 No Longer Active Carlton Hu MD Active POTASSIUM CHLORIDE ER 20 MEQ ORAL TABLET EXTENDED RELE ASE Take 1 by mouth 4 times daily for 7 days POTASSIUM CHLORIDE 77894795463 No Longer Active Carlton Hu MD Active ZITHROMAX 250 MG ORAL TABLET 2 po today, then 1 po q days 2-5 20 14/09/04 AZITHROMYCIN 62571678058 No Longer Active Elise Garcia APRN Active TUSSIONEX PENNKINETIC ER 10-8 MG/5ML ORAL SUSPENSION E XTENDED RELEASE 5 ml twice a day as needed for cough HYDROCOD POLST-CHLORPH EN POLST 17490946044 No Longer Active Elise Garcia APRN Active MONTELUKAST SODIUM 10 MG ORAL TABLET 1 po daily for Allergy MONTELUKAST SODIUM 99619660731 Active Carlton Hu MD Ac tive TUSSIONEX PENNKINETIC ER 10-8 MG/5ML ORAL SUSPENSION E XTENDED RELEASE 5ml po q12hr PRN Cough HYDROCOD POLST-CHLORPHEN POLST 5 3114031606 No Longer Active Hugo Restrepo MD Active GABAPENTIN 100 MG ORAL CAPSULE 1 po BID for fibromyalgia GABAPENTIN 87864947314 Active ALFREDO Holly Active LYRICA 100 MG ORAL CAPSULE Take 1 tab po BID for fibromyalgia 20 11/08/21 PREGABALIN 81100735309 No Longer Active Elise Garcia APRN A ctive PREDNISONE 20 MG ORAL TABLET 2 tabs daily for 3 days, 1 tab daily for 3 days, 1/2 tab daily for 2 days PREDNISONE 18130422560 No Longer Active Diya De Guzman APRN Active TUSSIONEX PENNKINETIC ER 10-8 MG/5ML ORAL SUSPENSION E XTENDED RELEASE 5 mL PO q 12 hrs PRN cough HYDROCOD POLST-CHLORPHEN POLST 840062 76292 No Longer Active Jillina Frazell PHARMACY DATA ANALYST Active FLUTICASONE PROPIONATE 50 MCG/ACT NASAL SUSPENSION 2 s prays each nostril daily until bottle is empty FLUTICASONE PROPIONATE 053701100 99 No Longer Active Jillina Frazell PHARMACY DATA ANALYST Active ASMANEX 60 METERED DOSES 220 MCG/INH INHALATION AEROSO L POWDER BREATH ACTIVATED 1 puff bid with rinse after MOMETASONE FUROATE 6846782 4102 No Longer Active Jillina Frazell PHARMACY DATA ANALYST Active ZITHROMAX Z-REYNA 250 MG ORAL TABLET 2 today, then 1 daily for 4 d ays AZITHROMYCIN 81148741890 No Longer Active Elise Garcia APRN Active TUSSIONEX PENNKINETIC ER 10-8 MG/5ML ORAL SUSPENSION E XTENDED RELEASE 5ml po q12hr PRN Cough HYDROCOD POLST-CHLORPHEN POLST 5 8353883231 No Longer Active Elise Garcia APRN Active PREDNISONE 20 MG ORAL TABLET 2 tabs daily for 3 days, 1 tab daily for 3 days, 1/2 tab daily for 2 days PREDNISONE 26952017083 No Longer Active Diya De Guzman APRN Active AMOXICILLIN 500 MG ORAL CAPSULE 2 po BID x 10 days 201 09/29/08 AMOXICILLIN 30234663904 No Longer Active Jiriley De Guzman APRN Act nael SINGULAIR 10 MG ORAL TABLET 1 po qday for allergies 20 14/01/12 MONTELUKAST SODIUM 08484759572 No Longer Active Carlton Hu MD Active LEVAQUIN 500 MG ORAL TABLET 1 tablet by mouth daily 20 13/09/24 LEVOFLOXACIN 89452497858 No Longer Active Carlton Hu MD Acti ve FLUTICASONE PROPIONATE 50 MCG/ACT NASAL SUSPENSION 2 s prays each nostril daily for 2 weeks, then 1 spray each nostril daily. FLUTICASONE PROPIONATE 00512886528 Active Carlton Hu MD Active ZITHROMAX 250 MG ORAL TABLET 2 po today, then 1 po q days 2-5 20 13/08/10 AZITHROMYCIN 07844598156 No Longer Active Elise Garcia APRN Active XANAX 0.5 MG ORAL TABLET one tablet by mouth daily prn anxiety 2015 ALPRAZOLAM 44528753115 Active ALFREDO Holly Active CEFDINIR 300 MG ORAL CAPSULE 1 po BID x 10 days CEFDINIR 19637545000 No Longer Active Carlton Hu MD Active ZOCOR 40 MG ORAL TABLET 1 tab by mouth daily SI MVASTATIN 54334528204 No Longer Active Carlton Hu MD Active CYCLOBENZAPRINE HCL 10 MG ORAL TABLET 1 tablet by mouth BID prn had pain CYCLOBENZAPRINE HCL 23417391152 No Longer Active Jayden Hu MD Active LEVOFLOXACIN 500 MG ORAL TABLET 1 tab PO daily x 10 days LEVOFLOXACIN 67314849228 No Longer Active Carlton Hu MD Acti ve PREDNISONE 20 MG ORAL TABLET 3 tab PO qd x 2d, 2 tab P O qd x 2d, 1 tab PO qd x 2d, 1/2 tab PO qd x 2d PREDNISONE 84024407627 No Lo nger Active Carlton Hu MD Active FLUTICASONE PROPIONATE 50 MCG/ACT NASAL SUSPENSION 1 t o 2 sprays each nostril daily FLUTICASONE PROPIONATE 75449316528 No Longer Ac tive Blaine HERNANDEZ Active CHERATUSSIN AC 100-10 MG/5ML ORAL SYRUP 1 tsp by mouth every 4 hours as needed for cough GUAIFENESIN-CODEINE 60831343861 No Longe r Active Blaine HERNANDEZ Active PROMETHAZINE-CODEINE 6.25-10 MG/5ML ORAL SYRUP 1 tsp b y mouth every 6 hours if needed for cough PROMETHAZINE-CODEINE 15926845126 No Longer Active Blaine HERNANDEZ Active CHERATUSSIN AC 100-10 MG/5ML ORAL SYRUP 1 tsp by mouth every 4 hours as needed for cough GUAIFENESIN-CODEINE 19926049503 No Longe r Active Blaine HERNANDEZ Active ZITHROMAX Z-REYNA 250 MG ORAL TABLET 2 today, then 1 daily for 4 d ays AZITHROMYCIN 30506819275 No Longer Active Columba Raida Act nael ZITHROMAX 250 MG ORAL TABLET 2 po today, then 1 po q days 2-5 20 14/03/21 AZITHROMYCIN 53019548184 No Longer Active Carlton Hu MD Active ZITHROMAX Z-REYNA 250 MG ORAL TABLET 2 today, then 1 daily for 4 d ays AZITHROMYCIN 52134637792 No Longer Active Columba Raida Act nael AUGMENTIN 875-125 MG ORAL TABLET 1 po BID x 10 days 13/01/20 AMOXICILLIN-POT CLAVULANATE 00565468153 No Longer Active Diya De Guzman APRN Active ZITHROMAX 250 MG ORAL TABLET 2 po today, then 1 po q days 2-5 12/08/14 AZITHROMYCIN 35905932028 No Longer Active Carlton Hu MD Active TRAMADOL HCL 50 MG ORAL TABLET 1 po tid with ES Tylenol TRAMADOL HCL 72040317472 Active ALFREDO Holly Active PREMARIN 0.625 MG ORAL TABLET TAKE 1 TAB BY MOUTH DAILY ESTROGENS CONJUGATED 79287648880 No Longer Active Ridge Bess DO A ctive CYMBALTA 30 MG ORAL CAPSULE DELAYED RELEASE PARTICLES 1 cap by mouth daily DULOXETINE HCL 12148049763 No Longer Active Ridge tam DO Active AMOXICILLIN 500 MG ORAL CAPSULE 1 tab by mouth 3 times daily x 10 days AMOXICILLIN 96836915222 No Longer Active Carlton bustamante MD Active AMOXICILLIN 500 MG ORAL CAPSULE 1 tab by mouth 3 times daily x 10 days AMOXICILLIN 10168779426 No Longer Active Carlton bustamante MD Active PROMETHAZINE-CODEINE 6.25-10 MG/5ML ORAL SYRUP 1 tsp b y mouth every 8 hours prn cough PROMETHAZINE-CODEINE 77906839785 No Longer Acti ve Carlton Hu MD Active MEDROL 4 MG ORAL TABLET THERAPY PACK 6 pills x 1 day, then 5 pills x 1 day then 4 pills x 1 day, then 3 pills x 1 day, then 2 pills x 1 day, then 1 pill x 1 day, then stop METHYLPREDNISOLONE 13784512745 No Long er Active Perez Mora MD Active AZITHROMYCIN 250 MG ORAL TABLET 2 po qd x 1 day, then 1 po q d x 4 days AZITHROMYCIN 22486832718 No Longer Active Perez Ambriz MD Active SYMBICORT 160-4.5 MCG/ACT INHALATION AEROSOL 2 puffs bid wit h rinse after BUDESONIDE-FORMOTEROL FUMARATE 10135648208 N o Longer Active Perez Mora MD Active LYRICA 75 MG ORAL CAPSULE TAKE 1 CAPSULE BY MOUTH TWICE DAILY PREGABALIN 13403706990 No Longer Active Carlton Hu MD Acti ve TOPAMAX 25 MG ORAL TABLET 1 qHS x 1 week, then 1 BID x 1 week, then 1 qAM and 2 qHS x 1 week, then 2 BID (migraine prevention) T OPIRAMATE 78321774729 No Longer Active Jerica FUENTES Active TOPAMAX 50 MG ORAL TABLET take 1 tab po BID for migraines. 07/02 TOPIRAMATE 85822313856 No Longer Active Jerica FUENTES Active TRIAMCINOLONE ACETONIDE 0.1 % EXTERNAL CREAM apply three roger es daily prn rash TRIAMCINOLONE ACETONIDE 86366662528 No Longer Active Carlton Hu MD Active PAXIL 40 MG ORAL TABLET take 1 tab po qday for depression 0 PAROXETINE HCL 85875853180 Active Carlton Hu MD Active CHERATUSSIN AC 100-10 MG/5ML ORAL SYRUP 5ml po q6hr PRN Cough 20 13/04/14 GUAIFENESIN-CODEINE 31232581381 No Longer Active Carlton Hu MD Active MEDROL 4 MG ORAL TABLET THERAPY PACK 6 tabs on day 1, 5 tabs on day 2, 4 tabs on day 3, 3 tabs on day 4, 2 tabs on day 5, 1 tab on day 6 2013 METHYLPREDNISOLONE 61382874521 No Longer Active Perez Mora MD Active AZITHROMYCIN 250 MG ORAL TABLET 2 po qd x 1 day, then 1 po q d x 4 days AZITHROMYCIN 80733773657 No Longer Active Perez Ambriz MD Active PROPRANOLOL HCL 60 MG ORAL TABLET 1 PO Q D PROPRANOLOL HCL 34586017095 No Longer Active Perez Mora MD Activ e CHERATUSSIN AC 100-10 MG/5ML ORAL SYRUP take one tsp po Q 6h ours prn cough GUAIFENESIN-CODEINE 33403464134 No Longer Active Zia Mora MD Active AUGMENTIN 875-125 MG ORAL TABLET 1 tab by mouth twice daily with food AMOXICILLIN-POT CLAVULANATE 88081470178 No Longer Act nael Mora MD Active CHERATUSSIN AC 100-10 MG/5ML ORAL SYRUP 1 tsp by mouth every 4 hours as needed for cough GUAIFENESIN-CODEINE 57410730596 No Longe r Active Hugo Restrepo MD Active ACETAMINOPHEN-CODEINE #3 300-30 MG ORAL TABLET 1 PO Q 4-6 HRS [place] N PAIN ACETAMINOPHEN-CODEINE 76281630844 No Longer Active Hugo Restrepo MD Active LEVAQUIN 500 MG ORAL TABLET take one po QD LEVO FLOXACIN 04025902941 No Longer Active Griffin HERNANDEZ Active PREDNISONE 20 MG ORAL TABLET Take 3 tabs daily for 3 d ays, 2 tabs daily for 3 days, 1 tab daily for 3 days, 1/2 tab daily for 3 days 11/07 PREDNISONE 20995531783 No Longer Active Carlton Hu MD Acti ve AVELOX 400 MG ORAL TABLET 1 tab by mouth daily MOXIFLOXACIN HCL 17865903606 No Longer Active Carlton Hu MD Active CHERATUSSIN AC 100-10 MG/5ML ORAL SYRUP 1 tsp by mouth every 4 hours as needed for cough GUAIFENESIN-CODEINE 07993231010 No Longe r Active Hugo Restrepo MD Active AVELOX 400 MG ORAL TABLET 1 tab by mouth daily MOXIFLOXACIN HCL 79303018078 No Longer Active Marcy De La Rosa MD PhD Active TERBINAFINE HCL 250 MG ORAL TABLET 1 qDay T ERBINAFINE HCL 22006312776 No Longer Active Marcy De La Rosa MD PhD Active CHERATUSSIN AC 100-10 MG/5ML ORAL SYRUP 1 tsp by mouth every 4 hours as needed for cough GUAIFENESIN-CODEINE 62404454654 No Longe r Active Marcy De La Rosa MD PhD Active AVELOX 400 MG ORAL TABLET 1 tab by mouth daily MOXIFLOXACIN HCL 85038901310 No Longer Active Marcy De La Rosa MD PhD Active HYDROCODONE-ACETAMINOPHEN 5-325 MG ORAL TABLET 1 po q 6hr PRN co ugh HYDROCODONE-ACETAMINOPHEN 46907067440 No Longer Active Marcy De La Rosa MD PhD Active PREDNISONE 20 MG ORAL TABLET 2 tabs daily for 3 days, 1 tab daily for 3 days, 1/2 tab daily for 2 days PREDNISONE 70547273338 No Longer Active Carlton Hu MD Active CEFDINIR 300 MG ORAL CAPSULE by mouth twice a day 2011 CEFDINIR 69200474543 No Longer Active Carlton Hu MD Acti ve HYDROCHLOROTHIAZIDE 25 MG ORAL TABLET 1 TAB PO DAILY HYDROCHLOROTHIAZIDE 67831354478 Active Carlton Hu MD A ctive ACETAMINOPHEN-CODEINE #3 300-30 MG ORAL TABLET 1 tablet po q 4-6 hrs prn pain ACETAMINOPHEN-CODEINE 24172211787 No Longer Active Ridge Bess DO Active ZITHROMAX 250 MG ORAL TABLET 2 po today, then 1 po q days 2-5 20 03/07/07 AZITHROMYCIN 20404685256 No Longer Active Carlton Hu MD Active CHERATUSSIN AC 100-10 MG/5ML ORAL SYRUP take 1 tsp po q4-6 h ours prn cough GUAIFENESIN-CODEINE 78060932703 No Longer Active Jayden Hu MD Active ACETAMINOPHEN-CODEINE #3 300-30 MG ORAL TABLET 1 PO Q 4-6 HR PRN PAIN ACETAMINOPHEN-CODEINE 24734825705 No Longer Active Arnol Hu MD Active LORTAB 7.5-500 MG/15ML ORAL ELIXIR 7.5 ml po q 4 hour prn cough HYDROCODONE-ACETAMINOPHEN 68733338504 No Longer Active Carlton Hu MD Active PREDNISONE 20 MG ORAL TABLET 1 po bid 3 days, then 1 po q day 3 days PREDNISONE 19029779146 No Longer Active Carlton Hu MD Active CEFDINIR 300 MG ORAL CAPSULE by mouth twice a day 2011 CEFDINIR 40221972397 No Longer Active Carlton Hu MD Acti ve CEFDINIR 300 MG ORAL CAPSULE by mouth twice a day 2010 CEFDINIR 78976757560 No Longer Active Carlton Hu MD Acti ve CEFDINIR 300 MG ORAL CAPSULE by mouth twice a day 2010 CEFDINIR 98946789792 No Longer Active Carlton Hu MD Acti ve TESSALON PERLES 100 MG ORAL CAPSULE 1 tablet by mouth 3 times daily as needed for cough BENZONATATE 77150113281 No Longer Active Carlton Hu MD Active CEFDINIR 300 MG ORAL CAPSULE by mouth twice a day 2010 CEFDINIR 51201211538 No Longer Active Carlton Hu MD Acti ve ZITHROMAX Z-REYNA 250 MG ORAL TABLET 2 today, then 1 daily for 4 d ays AZITHROMYCIN 17954506072 No Longer Active Hugo Restrepo MD Active TESSALON PERLES 100 MG ORAL CAPSULE 1 tablet by mouth 3 times daily as needed for cough TESSALON PERLES 100 MG ORAL CAPSULE 72406 7 BENZONATATE Inactive PREDNISONE 20 MG ORAL TABLET 1 po bid 3 days, then 1 po q day 3 days PREDNISONE 20 MG ORAL TABLET 093877 PREDNISONE [place] ctive LORTAB 7.5-500 MG/15ML ORAL [...] cough CHERATUSSIN AC 100-10 MG/5ML ORAL SYRUP 058804 GUAIFENESIN-CODEINE Inactive ACETAMINOPHEN-CODEINE #3 300-30 MG ORAL TABLET 1 tablet po q 4-6 hrs prn pain ACETAMINOPHEN-CODEINE #3 300-30 MG ORAL TABLET ACETAMINOPHEN-CODEINE Inactive HYDROCODONE-ACETAMINOPHEN 5-325 MG ORAL TABLET 1 po q 6hr PRN co ugh HYDROCODONE-ACETAMINOPHEN 5-325 MG ORAL TABLET 794358 HYDROCODONE-ACETAMINOPHEN Inactive AVELOX 400 MG ORAL TABLET 1 tab by mouth daily AVELOX 400 MG ORAL TABLET 140927 MOXIFLOXACIN HCL Inactive CHERATUSSIN AC 100-10 MG/5ML ORAL SYRUP 1 tsp by mouth every 4 hours as needed for cough CHERATUSSIN AC 100-10 MG/5ML ORAL SYRUP 9 00580 GUAIFENESIN-CODEINE Inactive TERBINAFINE HCL 250 MG ORAL TABLET 1 qDay 07/08 TERBINAFINE HCL 250 MG ORAL TABLET 009426 TERBINAFINE HCL Inactive CHERATUSSIN AC 100-10 MG/5ML ORAL SYRUP 1 tsp by mouth every 4 hours as needed for cough CHERATUSSIN AC 100-10 MG/5ML ORAL SYRUP 9 75256 GUAIFENESIN-CODEINE Inactive ACETAMINOPHEN-CODEINE #3 300-30 MG ORAL TABLET 1 PO Q 4-6 HRS KS N PAIN ACETAMINOPHEN-CODEINE #3 300-30 MG ORAL TABLET ACETAMINOPHEN-CODEINE Inactive CHERATUSSIN AC 100-10 MG/5ML ORAL SYRUP 1 tsp by mouth every 4 hours as needed for cough CHERATUSSIN AC 100-10 MG/5ML ORAL SYRUP 9 82105 GUAIFENESIN-CODEINE Inactive AUGMENTIN 875-125 MG ORAL TABLET 1 tab by mouth twice daily with food AUGMENTIN 875-125 MG ORAL TABLET 406192 AMOXICIL MADELINE-POT CLAVULANATE Inactive CHERATUSSIN AC 100-10 MG/5ML ORAL SYRUP take one tsp po Q 6h ours prn cough CHERATUSSIN AC 100-10 MG/5ML ORAL SYRUP 694666 GUAIFENESIN-CODEINE Inactive PROPRANOLOL HCL 60 MG ORAL TABLET 1 PO Q D PROPRANOLOL HCL 60 MG ORAL TABLET 118817 PROPRANOLOL HCL Inactive TOPAMAX 50 MG ORAL TABLET take 1 tab po BID for migraines. 07/02 TOPAMAX 50 MG ORAL TABLET 091653 TOPIRAMATE Inacti ve TOPAMAX 25 MG ORAL TABLET 1 qHS x 1 week, then 1 BID x 1 week, then 1 qAM and 2 qHS x 1 week, then 2 BID (migraine prevention) TOPAMAX 25 MG ORAL TABLET 036469 TOPIRAMATE Inactive LYRICA 75 MG ORAL CAPSULE TAKE 1 CAPSULE BY MOUTH TWICE DAILY LYRICA 75 MG ORAL CAPSULE PREGABALIN Inactive SYMBICORT 160-4.5 MCG/ACT INHALATION AEROSOL 2 puffs bid wit h rinse after SYMBICORT 160-4.5 MCG/ACT INHALATION AEROSOL BUDESONIDE- FORMOTEROL FUMARATE Inactive PROMETHAZINE-CODEINE 6.25-10 MG/5ML ORAL SYRUP 1 tsp b y mouth every 8 hours prn cough PROMETHAZINE-CODEINE 6.25-10 MG/ 5ML ORAL SYRUP 794209 PROMETHAZINE-CODEINE Inactive CYMBALTA 30 MG ORAL CAPSULE DELAYED RELEASE PARTICLES 1 cap by mouth daily CYMBALTA 30 MG ORAL CAPSULE DELAYED RELE ASE PARTICLES 755014 DULOXETINE HCL Inactive PREMARIN 0.625 MG ORAL TABLET TAKE 1 TAB BY MOUTH DAILY PREMARIN 0.625 MG ORAL TABLET ESTROGENS CONJUGATED Inactive CHERATUSSIN AC 100-10 MG/5ML ORAL SYRUP 1 tsp by mouth every 4 hours as needed for cough CHERATUSSIN AC 100-10 MG/5ML ORAL SYRUP 9 33072 GUAIFENESIN-CODEINE Inactive PROMETHAZINE-CODEINE 6.25-10 MG/5ML ORAL SYRUP 1 tsp b y mouth every 6 hours if needed for cough PROMETHAZINE-CODEINE 6.25-10 MG/5ML ORAL SYRUP 189179 PROMETHAZINE-CODEINE Inactive CHERATUSSIN AC 100-10 MG/5ML ORAL SYRUP 1 tsp by mouth every 4 hours as needed for cough CHERATUSSIN AC 100-10 MG/5ML ORAL SYRUP 9 11080 GUAIFENESIN-CODEINE Inactive FLUTICASONE PROPIONATE 50 MCG/ACT NASAL SUSPENSION 1 t o 2 sprays each nostril daily FLUTICASONE PROPIONATE 50 MCG/AC T NASAL SUSPENSION 6073474 FLUTICASONE PROPIONATE Inactive PREDNISONE 20 MG ORAL TABLET 3 tab PO qd x 2d, 2 tab P O qd x 2d, 1 tab PO qd x 2d, 1/2 tab PO qd x 2d PREDNISONE 20 MG ORAL TAB LET 445844 PREDNISONE Inactive LEVOFLOXACIN 500 MG ORAL TABLET 1 tab PO daily x 10 days LEVOFLOXACIN 500 MG ORAL TABLET 607399 LEVOFLOXACIN Inactive CYCLOBENZAPRINE HCL 10 MG ORAL TABLET 1 tablet by mouth BID prn had pain CYCLOBENZAPRINE HCL 10 MG ORAL TABLET 543194 CYCLOBENZAPRINE HCL Inactive ZOCOR 40 MG ORAL TABLET 1 tab by mouth daily 4 ZOCOR 40 MG ORAL TABLET 894179 SIMVASTATIN Inactive TUSSIONEX PENNKINETIC ER 10-8 MG/5ML [...] FLUTICASONE PROPIO EFE 50 MCG/ACT NASAL SUSPENSION 5651310 FLUTICASONE PROPIONATE Inactive TUSSIONEX PENNKINETIC ER 10-8 [...] three days PREDNISONE 20 MG ORAL TABLET 490172 PREDNIS ONE Inactive PROAIR HFA 108 (90 BASE) MCG/ACT INHALATION AEROSOL SO LUTION 2 puffs four times a day as needed PROAIR HFA 108 (90 B ASE) MCG/ACT INHALATION AEROSOL SOLUTION ALBUTEROL SULFATE Inactive PREDNISONE 20 MG ORAL TABLET two tabs by mouth today, then one tab by mouth days two and three and four PREDNISONE 20 MG ORAL TAB LET 608331 PREDNISONE Inactive TUSSIONEX PENNKINETIC ER 10-8 MG/5ML [...] bid 04/20 TOPAMAX 100 MG ORAL TABLET 162200 TOPIRAMATE Inactive CYMBALTA 30 MG ORAL CAPSULE DELAYED RELEASE PARTICLES 1 cap by mouth daily for depression CYMBALTA 30 MG ORAL CAPSULE DELAYED RELEASE PARTICLES 120166 DULOXETINE HCL Inactive ZITHROMAX Z-REYNA 250 MG ORAL TABLET 2 today, then 1 daily for 4 d ays ZITHROMAX Z-REYNA 250 MG ORAL TABLET 911812 AZITHROMYCIN Inactive CEFDINIR 300 MG ORAL CAPSULE by mouth twice a day 2010 CEFDINIR 300 MG ORAL CAPSULE 294756 CEFDINIR Inactive CEFDINIR 300 MG ORAL CAPSULE by mouth twice a day 2010 CEFDINIR 300 MG ORAL CAPSULE 404201 CEFDINIR Inactive CEFDINIR 300 MG ORAL CAPSULE by mouth twice a day 2010 CEFDINIR 300 MG ORAL CAPSULE 606515 CEFDINIR Inactive CEFDINIR 300 MG ORAL CAPSULE by mouth twice a day 2011 CEFDINIR 300 MG ORAL CAPSULE 032402 CEFDINIR Inactive ZITHROMAX 250 MG ORAL TABLET 2 po today, then 1 po q days 2-5 20 03/07/07 ZITHROMAX 250 MG ORAL TABLET 781242 AZITHROMYCIN [place] ctive CEFDINIR 300 MG ORAL CAPSULE by mouth twice a day 2011 CEFDINIR 300 MG ORAL CAPSULE 368597 CEFDINIR Inactive PREDNISONE 20 MG ORAL TABLET 2 tabs daily for 3 days, 1 tab daily for 3 days, 1/2 tab daily for 2 days PREDNISONE 20 MG ORAL T ABLET 987815 PREDNISONE Inactive AVELOX 400 MG ORAL TABLET 1 tab by mouth daily AVELOX 400 MG ORAL TABLET 576064 MOXIFLOXACIN HCL Inactive AVELOX 400 MG ORAL TABLET 1 tab by mouth daily AVELOX 400 MG ORAL TABLET 257639 MOXIFLOXACIN HCL Inactive PREDNISONE 20 MG ORAL TABLET Take 3 tabs daily for 3 d ays, 2 tabs daily for 3 days, 1 tab daily for 3 days, 1/2 tab daily for 3 days 11/07 PREDNISONE 20 MG ORAL TABLET 570754 PREDNISONE Inactive LEVAQUIN 500 MG ORAL TABLET take one po QD LEVAQUIN 500 MG ORAL TABLET 007507 LEVOFLOXACIN Inactive AZITHROMYCIN 250 MG ORAL TABLET 2 po qd x 1 day, then 1 po q d x 4 days AZITHROMYCIN 250 MG ORAL TABLET 169646 AZITHROMY GIOVANNI Inactive MEDROL 4 MG ORAL TABLET THERAPY PACK 6 tabs on day 1, 5 tabs on day 2, 4 tabs on day 3, 3 tabs on day 4, 2 tabs on day 5, 1 tab on day 6 2013 MEDROL 4 MG ORAL TABLET THERAPY PACK 686581 METHYLPREDNISOLONE [place] ctive CHERATUSSIN AC 100-10 MG/5ML ORAL SYRUP 5ml po q6hr PRN Cough 20 13/04/14 CHERATUSSIN AC 100-10 MG/5ML ORAL SYRUP 568061 GUAIFENE SIN-CODEINE Inactive TRIAMCINOLONE ACETONIDE 0.1 % EXTERNAL CREAM apply three roger es daily prn rash TRIAMCINOLONE ACETONIDE 0.1 % EXTERNAL CREAM 101 4314 TRIAMCINOLONE ACETONIDE Inactive AZITHROMYCIN 250 MG ORAL TABLET 2 po qd x 1 day, then 1 po q d x 4 days AZITHROMYCIN 250 MG ORAL TABLET 627931 AZITHROMY GIOVANNI Inactive MEDROL 4 MG ORAL TABLET THERAPY PACK 6 pills x 1 day, then 5 pills x 1 day then 4 pills x 1 day, then 3 pills x 1 day, then 2 pills x 1 day, then 1 pill x 1 day, then stop MEDROL 4 MG ORAL TABLET THERAPY PACK 801646 METHYLPREDNISOLONE Inactive AMOXICILLIN 500 MG ORAL CAPSULE 1 tab by mouth 3 times daily x 10 days AMOXICILLIN 500 MG ORAL CAPSULE 904310 AMOXICILL IN Inactive AMOXICILLIN 500 MG ORAL CAPSULE 1 tab by mouth 3 times daily x 10 days AMOXICILLIN 500 MG ORAL CAPSULE 094574 AMOXICILL IN Inactive ZITHROMAX 250 MG ORAL TABLET 2 po today, then 1 po q days 2-5 20 12/08/14 ZITHROMAX 250 MG ORAL TABLET 450499 AZITHROMYCIN [place] ctive AUGMENTIN 875-125 MG ORAL TABLET 1 po BID x 10 days 20 13/01/20 AUGMENTIN 875-125 MG ORAL TABLET 464603 AMOXICILLIN-POT CLAVULANATE Inactive ZITHROMAX Z-REYNA 250 MG ORAL TABLET 2 today, then 1 daily for 4 d ays ZITHROMAX Z-REYNA 250 MG ORAL TABLET 400879 AZITHROMYCIN Inactive ZITHROMAX 250 MG ORAL TABLET 2 po today, then 1 po q days 2-5 20 14/03/21 ZITHROMAX 250 MG ORAL TABLET 234251 AZITHROMYCIN [place] ctive ZITHROMAX Z-REYNA 250 MG ORAL TABLET 2 today, then 1 daily for 4 d ays ZITHROMAX Z-REYNA 250 MG ORAL TABLET 814339 AZITHROMYCIN Inactive CEFDINIR 300 MG ORAL CAPSULE 1 po BID x 10 days 06/21 CEFDINIR 300 MG ORAL CAPSULE 449548 CEFDINIR Inactive ZITHROMAX 250 MG ORAL TABLET 2 po today, then 1 po q days 2-5 20 13/08/10 ZITHROMAX 250 MG ORAL TABLET 773017 AZITHROMYCIN Greer ctive LEVAQUIN 500 MG ORAL TABLET 1 tablet by mouth daily 13/09/24 LEVAQUIN 500 MG ORAL TABLET 699168 LEVOFLOXACIN Inactive SINGULAIR 10 MG ORAL TABLET 1 po qday for allergies 20 14/01/12 SINGULAIR 10 MG ORAL TABLET 20010504 MONTELUKAST SODIUM Inactive AMOXICILLIN 500 MG ORAL CAPSULE 2 po BID x 10 days 201 09/29/08 AMOXICILLIN 500 MG ORAL CAPSULE 702043 AMOXICILLIN Inactive PREDNISONE 20 MG ORAL TABLET 2 tabs daily for 3 days, 1 tab daily for 3 days, 1/2 tab daily for 2 days PREDNISONE 20 MG ORAL T ABLET 635433 PREDNISONE Inactive ZITHROMAX Z-REYNA 250 MG ORAL TABLET 2 today, then 1 daily for 4 d ays ZITHROMAX Z-REYNA 250 MG ORAL TABLET 711566 AZITHROMYCIN Inactive PREDNISONE 20 MG ORAL TABLET 2 tabs daily for 3 days, 1 tab daily for 3 days, 1/2 tab daily for 2 days PREDNISONE 20 MG ORAL T ABLET 612307 PREDNISONE Inactive ZITHROMAX 250 MG ORAL TABLET 2 po today, then 1 po q days 2-5 20 14/09/04 ZITHROMAX 250 MG ORAL TABLET 847402 AZITHROMYCIN Greer ctive AMOXICILLIN 500 MG ORAL CAPSULE 1 cap by mouth three times a day AMOXICILLIN 500 MG ORAL CAPSULE 477093 AMOXICILLIN Inactive TERBINAFINE HCL 250 MG ORAL TABLET 1 qDay for nail fungus 7 TERBINAFINE HCL 250 MG ORAL TABLET 616392 TERBINAFINE HCL Inact nael AUGMENTIN 875-125 MG ORAL TABLET 1 po BID x 10 days 16/03/22 AUGMENTIN 875-125 MG ORAL TABLET 018629 AMOXICILLIN-POT CLAVULANATE Inactive PREDNISONE 20 MG ORAL TABLET 2 po qd x 5 days PREDNISONE 20 MG ORAL TABLET 318047 PREDNISONE Inactive AZITHROMYCIN 250 MG ORAL TABLET 2 po qd x 1 day, then 1 po q d x 4 days AZITHROMYCIN 250 MG ORAL TABLET 053357 AZITHROMY GIOVANNI Inactive PREDNISONE 50 MG ORAL TABLET Take 50 mg dialy for 6 day s 7 PREDNISONE 50 MG ORAL TABLET 917602 PREDNISONE Inactive AUGMENTIN 875-125 MG ORAL TABLET 1 po BID x 10 days 18/04/16 AUGMENTIN 875-125 MG ORAL TABLET 834882 AMOXICILLIN-POT CLAVULANATE Inactive DOXYCYCLINE HYCLATE 100 MG ORAL CAPSULE 1 cap by mouth twice latasha ly DOXYCYCLINE HYCLATE 100 MG ORAL CAPSULE 2288748 DOXYCYCL INE HYCLATE Inactive PREDNISONE 20 MG ORAL TABLET Take 2 tabs day 1 and 2 and 1 t ab days 3 and 4 PREDNISONE 20 MG ORAL TABLET 057369 PREDNISONE Inactive Vital Signs Date Name Value [...] - Chem istry sodium, serum 139 mmol/L 552-052 9397/10/12 potassium, serum 3.8 mmol/L 3.5-5.2 chloride, serum 102 mmol/L 98-107 carbon dioxide, venous blood 29.4 mmol/L 21.0-32 .0 blood glucose 103 mg/dL 65-95 calcium, serum 8.8 mg/dL 8.5-10.1 urea nitrogen, blood 10 mg/dL 7-18 creatinine, serum 0.97 mg/dL 0.60-1.30 Estimated Glomerular Filtration Rate (calc) 62 (?) mL/min/1.73m2 = OR > 60 mL/min Encounters Code Encounter Date Provider Facility CPT-34686 [id number] Vst-Est Level IV 08:41:[address] Carlton Hu MD [facility] CPT-00679 Level 3 Est. Patient 09:46:49 [employer] WORKER David lion [facility]-03708 07389-Pah Vst-Est Level III 11:12:16 CDT Yanet Bess DO [facility] CPT-04343 Level 3 Est. Patient 11:34:49 HEALTHCARE SOCIAL WORKER Perez Mora MD [facility] CPT-60128 Level 4 Est. Patient 09:51:32 HEALTHCARE SOCIAL WORKER Carlton rich MD [facility] CPT-93471 Level 3 Est. Patient 10:26:00 HEALTHCARE SOCIAL WORKER Elise stephenson [facility] CPT-85760 Level 3 Est. Patient 13:35:41 HEALTHCARE SOCIAL WORKER Carlton rich MD [facility]-63815 Level 3 Est. Patient 10:03:52 HEALTHCARE SOCIAL WORKER Carlton rich MD [facility]-10125 Level 3 Est. Patient 12:17:50 CDT Hugo Restrepo MD [facility]-20215 Level 3 Est. Patient 13:42:38 CDT Elise Are [facility] CPT-51439 Level 3 Est. Patient 13:23:51 CDT Diya cobian [facility] CPT-78624 Level 3 Est. Patient 14:22:19 HEALTHCARE SOCIAL WORKER Diya cobian [facility] CPT-33256 Level 3 Est. Patient 10:11:46 CDT Carlton rich MD [facility] CPT-19049 Level 3 Est. Patient 17:29:43 CDT Elise Are ll [facility] CPT-34500 Level 3 Est. Patient 11:58:06 CDT Elise Are [facility] CPT-44029 Level 4 Est. Patient 14:36:51 CDT Carlton rich MD [facility] CPT-73870 Level 3 Est. Patient 18:16:00 HEALTHCARE SOCIAL WORKER Blaine HERNANDEZ [facility] CPT-04868 Level 3 Est. Patient 09:45:49 HEALTHCARE SOCIAL WORKER Carlton rich MD [facility] CPT-23806 Level 3 Est. Patient 13:19:20 CDT Carlton rich MD [facility] CPT-74948 Level 3 Est. Patient 13:06:43 CDT Rigde tam DO [facility] CPT-75355 Level 3 Est. Patient 10:03:07 CDT Perez Mora MD [facility] CPT-56487 Level 3 Est. Patient 19:50:35 HE[employer]CARE SOCIAL WORKER Carlton rich MD [facility] CPT-77951 Level 4 Est. Patient 18:05:01 HEALTHCARE SOCIAL WORKER Carlton rich MD [facility] CPT-88406 Level 3 Est. Patient 10:45:55 HEALTHCARE SOCIAL WORKER Hugo Restrepo MD [facility] CPT-22151 Level 3 Est. Patient 14:12:49 CDT Griffin HERNANDEZ [facility] CPT-79119 Level 3 Est. Patient 17:37:24 CDT Carlton rich MD [facility] CPT-12831 Level 3 Est. Patient 16:51:54 CDT Carlton rich MD [facility] CPT-32282 Level 3 Est. Patient 12:18:11 CDT Hugo Restrepo MD [facility] CPT-98976 Level 3 Est. Patient 11:30:25 CDT Marcy crisostomo MD PhD [facility] CPT-94589 Level 3 Est. Patient 12:00:47 HEALTHCARE SOCIAL WORKER Carlton rich MD [facility] CPT-91920 Level 3 Est. Patient 16:31:06 HEALTHCARE SOCIAL WORKER Carlton rich MD [facility] CPT-24998 Level 3 Est. Patient 16:23:24 HEALTHCARE SOCIAL WORKER Ridge tam DO [facility] CPT-24913 Level 3 Est. Patient 12:34:12 CDT Carlton rich MD [facility] CPT-27290 Level 2 Est. Patient 15:43:33 CDT Robi armstrong MD [facility] CPT-44683 Level 4 Est. Patient 14:04:44 CDT Carlton rich MD [facility] CPT-31503 Level 3 Est. Patient 05:47:59 CDT Ridge tam [facility] CPT-56580 Level 3 Est. Patient 13:12:53 HEALTHCARE SOCIAL WORKER Carlton rich MD [facility] CPT-60799 Level 3 Est. Patient 14:26:53 CDT Hugo Restrepo MD [facility] Procedures Code Procedure Name Date Entry Date Standard Desc ription CPT-000 Give Appropriate Flu Vaccine 14:14:31 CDT 2 014/10/23 CPT-J1040 Depo Medrol 80 mg (Methyl Prednisolone A cetate) 10:42:44 CDT CPT-J1100 Decadron 8mg (Dexamethasone) 10:42:44 CDT 2 CPT-J0696 Rocephin 1gm Inj Solr 14:32:13 CDT CPT-J1020 Depo Medrol 60 mg (Methyl Prednisolone A cetate) 14:32:13 CDT CPT-J1100 Decadron 6mg (Dexamethasone) 14:32:13 CDT 2 CPT-67412 Hip bilat min 2V w AP pelvis 13:16:20 CDT 2 CPT-95907 Pelvis only 13:07:33 CDT CPT-01533 Spec Collection and Handling Fee 11:25:12 C DT CPT-77876 Fluzone Quadrivalent Intramuscular Suspe nsion 0.5 ML 14:31:55 CDT CPT-24116 Abx/Therapy Injection 13:28:47 HEALTHCARE SOCIAL WORKER CPT-J2930 Solu Medrol 125 mg (Methyl Prednisolone Sodium Succinate) 12:00:47 HEALTHCARE SOCIAL WORKER CPT-38580 Venipuncture Draw Fee 11:33:31 CDT CPT-10750 EKG Trac and Interp 11:21:09 CDT CPT-51410 Chest 2V Frontal and Lat 11:21:09 CDT 12/15 CPT-11161 Venipuncture Draw Fee 08:02:34 CDT CPT-52801 Chest 2V Frontal and Lat 05:47:59 CDT 06/05
--- OUTSIDE RECORDS SUMMARY | 2019-10-08 09:10 | XMS REPORT | Clinical Summary ---
Author Author Caitlin, Juliana Martinez Organization [facility] Address Unknown Phone Unavailable Allergies, Adverse [...] by mouth daily for depression DULOXETINE HCL [id number] No Longer Active Carlton Hu MD Active CYMBALTA 60 MG ORAL CAPSULE DELAYED RELEASE PARTICLES 1 cap by mouth daily for mood and pain DULOXETINE HCL 87474539615 Active Carlton Hu MD Active TUSSIONEX PENNKINETIC ER 10-8 MG/5ML ORAL SUSPENSION E XTENDED RELEASE 5ml po q12hr PRN Cough HYDROCOD POLST-CHLORPHEN POLST 78671110887 Active David Marianne CONCAVER Active PREDNISONE 20 MG ORAL TABLET Take 2 tabs day 1 and 2 and 1 t ab days 3 and 4 PREDNISONE 59592504670 No Longer Active David Marianne CONCAVER Active DOXYCYCLINE HYCLATE 100 MG ORAL CAPSULE 1 cap by mouth twice latasha ly DOXYCYCLINE HYCLATE 64108256389 No Longer Active David Lopes APRN Active TOPAMAX 100 MG ORAL TABLET Take 1 tablet po bid TOPIRAMATE 22071090457 No Longer Active David Marianne CONCAVER Active TUSSIONEX PENNKINETIC ER 10-8 MG/5ML ORAL SUSPENSION E XTENDED RELEASE 5ml po q12hr PRN Cough HYDROCOD POLST-CHLORPHEN POLST 5 4670021298 No Longer Active David Marianne CONCAVER Active AUGMENTIN 875-125 MG ORAL TABLET 1 po BID x 10 days 20 18/04/16 AMOXICILLIN-POT CLAVULANATE 87161041578 No Longer Active David Lopes CONCAVER Active PREDNISONE 50 MG ORAL TABLET Take 50 mg dialy for 6 day s 7 PREDNISONE 87500128865 No Longer Active David Marianne RICEN Active TUSSIONEX PENNKINETIC ER 10-8 MG/5ML ORAL SUSPENSION E XTENDED RELEASE 5ml po q12hr PRN Cough HYDROCOD POLST-CHLORPHEN POLST 5 2673464275 No Longer Active Cherelle Torres RN Active PREDNISONE 20 MG ORAL TABLET two tabs by mouth today, then one tab by mouth days two and three and four PREDNISONE 25182585553 No Lo nger Active Cherelle Torres RN Active AZITHROMYCIN 250 MG ORAL TABLET 2 po qd x 1 day, then 1 po q d x 4 days AZITHROMYCIN 83256216731 No Longer Active Ridge Bess DO Active PREDNISONE 20 MG ORAL TABLET 2 po qd x 5 days P REDNISONE 64786992145 No Longer Active Perez Mora MD Active PROAIR HFA 108 (90 BASE) MCG/ACT INHALATION AEROSOL SO LUTION 2 puffs four times a day as needed ALBUTEROL SULFATE 39098966975 No Long er Active Becky AGUILARA Active ASPIRIN 81 MG ORAL TABLET 1 po qd ASPIRIN 81136889218 Active Carlton Hu MD Active PREDNISONE 20 MG ORAL TABLET 1 tab twice daily for 3 d ay, then one daily for three days PREDNISONE 12274678996 No Longer Active Carlton Hu MD Active AUGMENTIN 875-125 MG ORAL TABLET 1 po BID x 10 days 16/03/22 AMOXICILLIN-POT CLAVULANATE 86252118913 No Longer Active Elise Garcia APRN Active TERBINAFINE HCL 250 MG ORAL TABLET 1 qDay for nail fungus 7 TERBINAFINE HCL 46950524990 No Longer Active Carlton Hu MD A ctive AMOXICILLIN 500 MG ORAL CAPSULE 1 cap by mouth three times a day AMOXICILLIN 99292110058 No Longer Active Carlton uH MD Active ELMIRON 100 MG ORAL CAPSULE 2 tablets in the am and 1 tablet at hs PENTOSAN POLYSULFATE SODIUM 40742913776 No Longer Active Robert Hu MD Active MUCINEX D 60-600 MG ORAL TABLET EXTENDED RELEASE 12 HOUR 1 t ab po q am PSEUDOEPHEDRINE-GUAIFENESIN 24098135265 No Longer Act nael Carlton Hu MD Active MUCINEX DM MAXIMUM STRENGTH 60-1200 MG ORAL TABLET EXT ENDED RELEASE 12 HOUR 1 tab po q am DEXTROMETHORPHAN-GUAIFENESIN 89006001092 No Longer Active Carlton Hu MD Active TUSSIONEX PENNKINETIC ER 10-8 MG/5ML ORAL SUSPENSION E XTENDED RELEASE 5ml po q12hr PRN Cough HYDROCOD POLST-CHLORPHEN POLST 5 6619927298 No Longer Active Carlton Hu MD Active POTASSIUM CHLORIDE ER 20 MEQ ORAL TABLET EXTENDED RELE ASE Take 1 by mouth 4 times daily for 7 days POTASSIUM CHLORIDE 55246473544 No Longer Active Carlton Hu MD Active ZITHROMAX 250 MG ORAL TABLET 2 po today, then 1 po q days 2-5 20 14/09/04 AZITHROMYCIN 91755148030 No Longer Active Elise Garcia APRN Active TUSSIONEX PENNKINETIC ER 10-8 MG/5ML ORAL SUSPENSION E XTENDED RELEASE 5 ml twice a day as needed for cough HYDROCOD POLST-CHLORPH EN POLST 22343191123 No Longer Active Elise Garcia APRN Active MONTELUKAST SODIUM 10 MG ORAL TABLET 1 po daily for Allergy MONTELUKAST SODIUM 42545024654 Active Carlton Hu MD Ac tive TUSSIONEX PENNKINETIC ER 10-8 MG/5ML ORAL SUSPENSION E XTENDED RELEASE 5ml po q12hr PRN Cough HYDROCOD POLST-CHLORPHEN POLST 5 7824605080 No Longer Active Hugo Restrepo MD Active GABAPENTIN 100 MG ORAL CAPSULE 1 po BID for fibromyalgia GABAPENTIN 37626294986 Active ALFREDO Holly Active LYRICA 100 MG ORAL CAPSULE Take 1 tab po BID for fibromyalgia 20 11/08/21 PREGABALIN 67555730795 No Longer Active Elise Garcia APRN A ctive PREDNISONE 20 MG ORAL TABLET 2 tabs daily for 3 days, 1 tab daily for 3 days, 1/2 tab daily for 2 days PREDNISONE 82087737729 No Longer Active Astridina Gege KHAN Active TUSSIONEX PENNKINETIC ER 10-8 MG/5ML ORAL SUSPENSION E XTENDED RELEASE 5 mL PO q 12 hrs PRN cough HYDROCOD POLST-CHLORPHEN POLST 213236 70267 No Longer Active Jillina Frazell CONCAVER Active FLUTICASONE PROPIONATE 50 MCG/ACT NASAL SUSPENSION 2 s prays each nostril daily until bottle is empty FLUTICASONE PROPIONATE 713700638 99 No Longer Active Jillina Frazell CONCAVER Active ASMANEX 60 METERED DOSES 220 MCG/INH INHALATION AEROSO L POWDER BREATH ACTIVATED 1 puff bid with rinse after MOMETASONE FUROATE 5620736 4102 No Longer Active Jillina Frazell CONCAVER Active ZITHROMAX Z-REYNA 250 MG ORAL TABLET 2 today, then 1 daily for 4 d ays AZITHROMYCIN 60225270386 No Longer Active Elise Garcia APRN Active TUSSIONEX PENNKINETIC ER 10-8 MG/5ML ORAL SUSPENSION E XTENDED RELEASE 5ml po q12hr PRN Cough HYDROCOD POLST-CHLORPHEN POLST 5 8991874695 No Longer Active Elise Garcia APRN Active PREDNISONE 20 MG ORAL TABLET 2 tabs daily for 3 days, 1 tab daily for 3 days, 1/2 tab daily for 2 days PREDNISONE 64567881798 No Longer Active Diya De Guzman APRN Active AMOXICILLIN 500 MG ORAL CAPSULE 2 po BID x 10 days 201 09/29/08 AMOXICILLIN 88605916414 No Longer Active Diya De Guzman APRN Act nael SINGULAIR 10 MG ORAL TABLET 1 po qday for allergies 20 14/01/12 MONTELUKAST SODIUM 54260582387 No Longer Active Carlton Hu MD Active LEVAQUIN 500 MG ORAL TABLET 1 tablet by mouth daily 20 13/09/24 LEVOFLOXACIN 51265840438 No Longer Active Carlton Hu MD Acti ve FLUTICASONE PROPIONATE 50 MCG/ACT NASAL SUSPENSION 2 s prays each nostril daily for 2 weeks, then 1 spray each nostril daily. FLUTICASONE PROPIONATE 13909463132 Active Carlton Hu MD Active ZITHROMAX 250 MG ORAL TABLET 2 po today, then 1 po q days 2-5 20 13/08/10 AZITHROMYCIN 79007604316 No Longer Active Elise Garcia APRN Active XANAX 0.5 MG ORAL TABLET one tablet by mouth daily prn anxiety 2015 ALPRAZOLAM 23276141236 Active ALFREDO Holly Active CEFDINIR 300 MG ORAL CAPSULE 1 po BID x 10 days CEFDINIR 55480432131 No Longer Active Carlton Hu MD Active ZOCOR 40 MG ORAL TABLET 1 tab by mouth daily SI MVASTATIN 08228626098 No Longer Active Carlton Hu MD Active CYCLOBENZAPRINE HCL 10 MG ORAL TABLET 1 tablet by mouth BID prn had pain CYCLOBENZAPRINE HCL 33798973457 No Longer Active Jayden Hu MD Active LEVOFLOXACIN 500 MG ORAL TABLET 1 tab PO daily x 10 days LEVOFLOXACIN 96012907670 No Longer Active Carlton Hu MD Acti ve PREDNISONE 20 MG ORAL TABLET 3 tab PO qd x 2d, 2 tab P O qd x 2d, 1 tab PO qd x 2d, 1/2 tab PO qd x 2d PREDNISONE 66190117316 No Lo nger Active Carlton Hu MD Active FLUTICASONE PROPIONATE 50 MCG/ACT NASAL SUSPENSION 1 t o 2 sprays each nostril daily FLUTICASONE PROPIONATE 44105550634 No Longer Ac tive Blaine HERNANDEZ Active CHERATUSSIN AC 100-10 MG/5ML ORAL SYRUP 1 tsp by mouth every 4 hours as needed for cough GUAIFENESIN-CODEINE 38712445984 No Longe r Active Blaine HERNANDEZ Active PROMETHAZINE-CODEINE 6.25-10 MG/5ML ORAL SYRUP 1 tsp b y mouth every 6 hours if needed for cough PROMETHAZINE-CODEINE 38795234278 No Longer Active Blaine HERNANDEZ Active CHERATUSSIN AC 100-10 MG/5ML ORAL SYRUP 1 tsp by mouth every 4 hours as needed for cough GUAIFENESIN-CODEINE 57262661572 No Longe r Active Blaine HERNANDEZ Active ZITHROMAX Z-REYNA 250 MG ORAL TABLET 2 today, then 1 daily for 4 d ays AZITHROMYCIN 72419654216 No Longer Active Columba Raida Act nael ZITHROMAX 250 MG ORAL TABLET 2 po today, then 1 po q days 2-5 20 14/03/21 AZITHROMYCIN 96317318341 No Longer Active Carlton Hu MD Active ZITHROMAX Z-REYNA 250 MG ORAL TABLET 2 today, then 1 daily for 4 d ays AZITHROMYCIN 97010822899 No Longer Active Columba Raida Act nael AUGMENTIN 875-125 MG ORAL TABLET 1 po BID x 10 days 13/01/20 AMOXICILLIN-POT CLAVULANATE 45346330587 No Longer Active Diya Daphnebrayan KHAN Active ZITHROMAX 250 MG ORAL TABLET 2 po today, then 1 po q days 2-5 20 12/08/14 AZITHROMYCIN 31573232580 No Longer Active Carlton Hu MD Active TRAMADOL HCL 50 MG ORAL TABLET 1 po tid with ES Tylenol TRAMADOL HCL 78619313415 Active ALFREDO Holly Active PREMARIN 0.625 MG ORAL TABLET TAKE 1 TAB BY MOUTH DAILY ESTROGENS CONJUGATED 67874927559 No Longer Active Ridge Bess DO A ctive CYMBALTA 30 MG ORAL CAPSULE DELAYED RELEASE PARTICLES 1 cap by mouth daily DULOXETINE HCL 79443981532 No Longer Active Ridge tam DO Active AMOXICILLIN 500 MG ORAL CAPSULE 1 tab by mouth 3 times daily x 10 days AMOXICILLIN 97157843420 No Longer Active Carlton bustamante MD Active AMOXICILLIN 500 MG ORAL CAPSULE 1 tab by mouth 3 times daily x 10 days AMOXICILLIN 06008934080 No Longer Active Carlton bustamante MD Active PROMETHAZINE-CODEINE 6.25-10 MG/5ML ORAL SYRUP 1 tsp b y mouth every 8 hours prn cough PROMETHAZINE-CODEINE 05237514156 No Longer Acti ve Carlton Hu MD Active MEDROL 4 MG ORAL TABLET THERAPY PACK 6 pills x 1 day, then 5 pills x 1 day then 4 pills x 1 day, then 3 pills x 1 day, then 2 pills x 1 day, then 1 pill x 1 day, then stop METHYLPREDNISOLONE 08757982640 No Long er Active Perez Mora MD Active AZITHROMYCIN 250 MG ORAL TABLET 2 po qd x 1 day, then 1 po q d x 4 days AZITHROMYCIN 47866057169 No Longer Active Perez Ambriz MD Active SYMBICORT 160-4.5 MCG/ACT INHALATION AEROSOL 2 puffs bid wit h rinse after BUDESONIDE-FORMOTEROL FUMARATE 99740212224 N o Longer Active Perez Mora MD Active LYRICA 75 MG ORAL CAPSULE TAKE 1 CAPSULE BY MOUTH TWICE DAILY PREGABALIN 30074894862 No Longer Active Carlton Hu MD Acti ve TOPAMAX 25 MG ORAL TABLET 1 qHS x 1 week, then 1 BID x 1 week, then 1 qAM and 2 qHS x 1 week, then 2 BID (migraine prevention) T OPIRAMATE 65409579337 No Longer Active Jerica FUENTES Active TOPAMAX 50 MG ORAL TABLET take 1 tab po BID for migraines. 07/02 TOPIRAMATE 11253673865 No Longer Active Jerica FUENTES Active TRIAMCINOLONE ACETONIDE 0.1 % EXTERNAL CREAM apply three roger es daily prn rash TRIAMCINOLONE ACETONIDE 77291672867 No Longer Active Carlton Hu MD Active PAXIL 40 MG ORAL TABLET take 1 tab po qday for depression 0 PAROXETINE HCL 12861695824 Active Carlton Hu MD Active CHERATUSSIN AC 100-10 MG/5ML ORAL SYRUP 5ml po q6hr PRN Cough 20 13/04/14 GUAIFENESIN-CODEINE 50783359211 No Longer Active Carlton Hu MD Active MEDROL 4 MG ORAL TABLET THERAPY PACK 6 tabs on day 1, 5 tabs on day 2, 4 tabs on day 3, 3 tabs on day 4, 2 tabs on day 5, 1 tab on day 6 2013 METHYLPREDNISOLONE 02836338266 No Longer Active Perez Mora MD Active AZITHROMYCIN 250 MG ORAL TABLET 2 po qd x 1 day, then 1 po q d x 4 days AZITHROMYCIN 08170455604 No Longer Active Perez Ambriz MD Active PROPRANOLOL HCL 60 MG ORAL TABLET 1 PO Q D PROPRANOLOL HCL 62292125284 No Longer Active Perez Mora MD Activ e CHERATUSSIN AC 100-10 MG/5ML ORAL SYRUP take one tsp po Q 6h ours prn cough GUAIFENESIN-CODEINE 67391848106 No Longer Active Zia Mora MD Active AUGMENTIN 875-125 MG ORAL TABLET 1 tab by mouth twice daily with food AMOXICILLIN-POT CLAVULANATE 14604839946 No Longer Act nael Mora MD Active CHERATUSSIN AC 100-10 MG/5ML ORAL SYRUP 1 tsp by mouth every 4 hours as needed for cough GUAIFENESIN-CODEINE 81978367428 No Longe r Active Hugo Restrepo MD Active ACETAMINOPHEN-CODEINE #3 300-30 MG ORAL TABLET 1 PO Q 4-6 HRS SC N PAIN ACETAMINOPHEN-CODEINE 20978605994 No Longer Active Hugo Restrepo MD Active LEVAQUIN 500 MG ORAL TABLET take one po QD LEVO FLOXACIN 58486863879 No Longer Active Griffin HERNANDEZ Active PREDNISONE 20 MG ORAL TABLET Take 3 tabs daily for 3 d ays, 2 tabs daily for 3 days, 1 tab daily for 3 days, 1/2 tab daily for 3 days 11/07 PREDNISONE 47399160999 No Longer Active Carlton Hu MD Acti ve AVELOX 400 MG ORAL TABLET 1 tab by mouth daily MOXIFLOXACIN HCL 61624623714 No Longer Active Carlton Hu MD Active CHERATUSSIN AC 100-10 MG/5ML ORAL SYRUP 1 tsp by mouth every 4 hours as needed for cough GUAIFENESIN-CODEINE 81089717547 No Longe r Active Hugo Restrepo MD Active AVELOX 400 MG ORAL TABLET 1 tab by mouth daily MOXIFLOXACIN HCL 23703555341 No Longer Active Marcy De La Rosa MD PhD Active TERBINAFINE HCL 250 MG ORAL TABLET 1 qDay T ERBINAFINE HCL 18609329596 No Longer Active Marcy De La Rosa MD PhD Active CHERATUSSIN AC 100-10 MG/5ML ORAL SYRUP 1 tsp by mouth every 4 hours as needed for cough GUAIFENESIN-CODEINE 21790808530 No Longe r Active Marcy De La Rosa MD PhD Active AVELOX 400 MG ORAL TABLET 1 tab by mouth daily MOXIFLOXACIN HCL 47903569299 No Longer Active Marcy De La Rosa MD PhD Active HYDROCODONE-ACETAMINOPHEN 5-325 MG ORAL TABLET 1 po q 6hr PRN co ugh HYDROCODONE-ACETAMINOPHEN 35311467010 No Longer Active Marcy De La Rosa MD PhD Active PREDNISONE 20 MG ORAL TABLET 2 tabs daily for 3 days, 1 tab daily for 3 days, 1/2 tab daily for 2 days PREDNISONE 52800663263 No Longer Active Carlton Hu MD Active CEFDINIR 300 MG ORAL CAPSULE by mouth twice a day 2011 CEFDINIR 38411477623 No Longer Active Carlton Hu MD Acti ve HYDROCHLOROTHIAZIDE 25 MG ORAL TABLET 1 TAB PO DAILY HYDROCHLOROTHIAZIDE 38000563226 Active Carlton Hu MD A ctive ACETAMINOPHEN-CODEINE #3 300-30 MG ORAL TABLET 1 tablet po q 4-6 hrs prn pain ACETAMINOPHEN-CODEINE 74501090954 No Longer Active Ridge Bess DO Active ZITHROMAX 250 MG ORAL TABLET 2 po today, then 1 po q days 2-5 20 03/07/07 AZITHROMYCIN 31979697575 No Longer Active Carlton Hu MD Active CHERATUSSIN AC 100-10 MG/5ML ORAL SYRUP take 1 tsp po q4-6 h ours prn cough GUAIFENESIN-CODEINE 62334612941 No Longer Active Jayden Hu MD Active ACETAMINOPHEN-CODEINE #3 300-30 MG ORAL TABLET 1 PO Q 4-6 HR PRN PAIN ACETAMINOPHEN-CODEINE 48256200631 No Longer Active Arnol Hu MD Active LORTAB 7.5-500 MG/15ML ORAL ELIXIR 7.5 ml po q 4 hour prn cough HYDROCODONE-ACETAMINOPHEN 35319233811 No Longer Active Carlton Hu MD Active PREDNISONE 20 MG ORAL TABLET 1 po bid 3 days, then 1 po q day 3 days PREDNISONE 58773077260 No Longer Active Carlton Hu MD Active CEFDINIR 300 MG ORAL CAPSULE by mouth twice a day 2011 CEFDINIR 61177120976 No Longer Active Carlton Hu MD Acti ve CEFDINIR 300 MG ORAL CAPSULE by mouth twice a day 2010 CEFDINIR 60278336002 No Longer Active Carlton Hu MD Acti ve CEFDINIR 300 MG ORAL CAPSULE by mouth twice a day 2010 CEFDINIR 04085865173 No Longer Active Carlton Hu MD Acti ve TESSALON PERLES 100 MG ORAL CAPSULE 1 tablet by mouth 3 times daily as needed for cough BENZONATATE 80034247605 No Longer Active Carlton Hu MD Active CEFDINIR 300 MG ORAL CAPSULE by mouth twice a day 2010 CEFDINIR 26644079904 No Longer Active Carlton Hu MD Acti ve ZITHROMAX Z-REYNA 250 MG ORAL TABLET 2 today, then 1 daily for 4 d ays AZITHROMYCIN 97739213825 No Longer Active Hugo Restrepo MD Active TESSALON PERLES 100 MG ORAL CAPSULE 1 tablet by mouth 3 times daily as needed for cough TESSALON PERLES 100 MG ORAL CAPSULE 75181 7 BENZONATATE Inactive PREDNISONE 20 MG ORAL TABLET 1 po bid 3 days, then 1 po q day 3 days PREDNISONE 20 MG ORAL TABLET 505201 PREDNISONE [place]er ctive LORTAB 7.5-500 MG/15ML ORAL [...] cough CHERATUSSIN AC 100-10 MG/5ML ORAL SYRUP 437196 GUAIFENESIN-CODEINE Inactive ACETAMINOPHEN-CODEINE #3 300-30 MG ORAL TABLET 1 tablet po q 4-6 hrs prn pain ACETAMINOPHEN-CODEINE #3 300-30 MG ORAL TABLET ACETAMINOPHEN-CODEINE Inactive HYDROCODONE-ACETAMINOPHEN 5-325 MG ORAL TABLET 1 po q 6hr PRN co ugh HYDROCODONE-ACETAMINOPHEN 5-325 MG ORAL TABLET 067491 HYDROCODONE-ACETAMINOPHEN Inactive AVELOX 400 MG ORAL TABLET 1 tab by mouth daily AVELOX 400 MG ORAL TABLET 013848 MOXIFLOXACIN HCL Inactive CHERATUSSIN AC 100-10 MG/5ML ORAL SYRUP 1 tsp by mouth every 4 hours as needed for cough CHERATUSSIN AC 100-10 MG/5ML ORAL SYRUP 9 75441 GUAIFENESIN-CODEINE Inactive TERBINAFINE HCL 250 MG ORAL TABLET 1 qDay 07/08 TERBINAFINE HCL 250 MG ORAL TABLET 651206 TERBINAFINE HCL Inactive CHERATUSSIN AC 100-10 MG/5ML ORAL SYRUP 1 tsp by mouth every 4 hours as needed for cough CHERATUSSIN AC 100-10 MG/5ML ORAL SYRUP 9 20146 GUAIFENESIN-CODEINE Inactive ACETAMINOPHEN-CODEINE #3 300-30 MG ORAL TABLET 1 PO Q 4-6 HRS SC N PAIN ACETAMINOPHEN-CODEINE #3 300-30 MG ORAL TABLET ACETAMINOPHEN-CODEINE Inactive CHERATUSSIN AC 100-10 MG/5ML ORAL SYRUP 1 tsp by mouth every 4 hours as needed for cough CHERATUSSIN AC 100-10 MG/5ML ORAL SYRUP 9 75637 GUAIFENESIN-CODEINE Inactive AUGMENTIN 875-125 MG ORAL TABLET 1 tab by mouth twice daily with food AUGMENTIN 875-125 MG ORAL TABLET 955455 AMOXICIL MADELINE-POT CLAVULANATE Inactive CHERATUSSIN AC 100-10 MG/5ML ORAL SYRUP take one tsp po Q 6h ours prn cough CHERATUSSIN AC 100-10 MG/5ML ORAL SYRUP 205588 GUAIFENESIN-CODEINE Inactive PROPRANOLOL HCL 60 MG ORAL TABLET 1 PO Q D PROPRANOLOL HCL 60 MG ORAL TABLET 693809 PROPRANOLOL HCL Inactive TOPAMAX 50 MG ORAL TABLET take 1 tab po BID for migraines. 07/02 TOPAMAX 50 MG ORAL TABLET 208894 TOPIRAMATE Inacti ve TOPAMAX 25 MG ORAL TABLET 1 qHS x 1 week, then 1 BID x 1 week, then 1 qAM and 2 qHS x 1 week, then 2 BID (migraine prevention) TOPAMAX 25 MG ORAL TABLET 551234 TOPIRAMATE Inactive LYRICA 75 MG ORAL CAPSULE TAKE 1 CAPSULE BY MOUTH TWICE DAILY LYRICA 75 MG ORAL CAPSULE PREGABALIN Inactive SYMBICORT 160-4.5 MCG/ACT INHALATION AEROSOL 2 puffs bid wit h rinse after SYMBICORT 160-4.5 MCG/ACT INHALATION AEROSOL BUDESONIDE- FORMOTEROL FUMARATE Inactive PROMETHAZINE-CODEINE 6.25-10 MG/5ML ORAL SYRUP 1 tsp b y mouth every 8 hours prn cough PROMETHAZINE-CODEINE 6.25-10 MG/ 5ML ORAL SYRUP 268940 PROMETHAZINE-CODEINE Inactive CYMBALTA 30 MG ORAL CAPSULE DELAYED RELEASE PARTICLES 1 cap by mouth daily CYMBALTA 30 MG ORAL CAPSULE DELAYED RELE ASE PARTICLES 523765 DULOXETINE HCL Inactive PREMARIN 0.625 MG ORAL TABLET TAKE 1 TAB BY MOUTH DAILY PREMARIN 0.625 MG ORAL TABLET ESTROGENS CONJUGATED Inactive CHERATUSSIN AC 100-10 MG/5ML ORAL SYRUP 1 tsp by mouth every 4 hours as needed for cough CHERATUSSIN AC 100-10 MG/5ML ORAL SYRUP 9 10180 GUAIFENESIN-CODEINE Inactive PROMETHAZINE-CODEINE 6.25-10 MG/5ML ORAL SYRUP 1 tsp b y mouth every 6 hours if needed for cough PROMETHAZINE-CODEINE 6.25-10 MG/5ML ORAL SYRUP 622819 PROMETHAZINE-CODEINE Inactive CHERATUSSIN AC 100-10 MG/5ML ORAL SYRUP 1 tsp by mouth every 4 hours as needed for cough CHERATUSSIN AC 100-10 MG/5ML ORAL SYRUP 9 74016 GUAIFENESIN-CODEINE Inactive FLUTICASONE PROPIONATE 50 MCG/ACT NASAL SUSPENSION 1 t o 2 sprays each nostril daily FLUTICASONE PROPIONATE 50 MCG/AC T NASAL SUSPENSION 5037227 FLUTICASONE PROPIONATE Inactive PREDNISONE 20 MG ORAL TABLET 3 tab PO qd x 2d, 2 tab P O qd x 2d, 1 tab PO qd x 2d, 1/2 tab PO qd x 2d PREDNISONE 20 MG ORAL TAB LET 357113 PREDNISONE Inactive LEVOFLOXACIN 500 MG ORAL TABLET 1 tab PO daily x 10 days LEVOFLOXACIN 500 MG ORAL TABLET 459053 LEVOFLOXACIN Inactive CYCLOBENZAPRINE HCL 10 MG ORAL TABLET 1 tablet by mouth BID prn had pain CYCLOBENZAPRINE HCL 10 MG ORAL TABLET 044508 CYCLOBENZAPRINE HCL Inactive ZOCOR 40 MG ORAL TABLET 1 tab by mouth daily 4 ZOCOR 40 MG ORAL TABLET 595306 SIMVASTATIN Inactive TUSSIONEX PENNKINETIC ER 10-8 MG/5ML [...] FLUTICASONE PROPIO EFE 50 MCG/ACT NASAL SUSPENSION 8273411 FLUTICASONE PROPIONATE Inactive TUSSIONEX PENNKINETIC ER 10-8 [...] three days PREDNISONE 20 MG ORAL TABLET 477759 PREDNIS ONE Inactive PROAIR HFA 108 (90 BASE) MCG/ACT INHALATION AEROSOL SO LUTION 2 puffs four times a day as needed PROAIR HFA 108 (90 B ASE) MCG/ACT INHALATION AEROSOL SOLUTION ALBUTEROL SULFATE Inactive PREDNISONE 20 MG ORAL TABLET two tabs by mouth today, then one tab by mouth days two and three and four PREDNISONE 20 MG ORAL TAB LET 165341 PREDNISONE Inactive TUSSIONEX PENNKINETIC ER 10-8 MG/5ML [...] bid 04/20 TOPAMAX 100 MG ORAL TABLET 765022 TOPIRAMATE Inactive CYMBALTA 30 MG ORAL CAPSULE DELAYED RELEASE PARTICLES 1 cap by mouth daily for depression CYMBALTA 30 MG ORAL CAPSULE DELAYED RELEASE PARTICLES 487193 DULOXETINE HCL Inactive ZITHROMAX Z-REYNA 250 MG ORAL TABLET 2 today, then 1 daily for 4 d ays ZITHROMAX Z-REYNA 250 MG ORAL TABLET 704167 AZITHROMYCIN Inactive CEFDINIR 300 MG ORAL CAPSULE by mouth twice a day 2010 CEFDINIR 300 MG ORAL CAPSULE 20020704 CEFDINIR Inactive CEFDINIR 300 MG ORAL CAPSULE by mouth twice a day 2010 CEFDINIR 300 MG ORAL CAPSULE 472716 CEFDINIR Inactive CEFDINIR 300 MG ORAL CAPSULE by mouth twice a day 2010 CEFDINIR 300 MG ORAL CAPSULE 851881 CEFDINIR Inactive CEFDINIR 300 MG ORAL CAPSULE by mouth twice a day 2011 CEFDINIR 300 MG ORAL CAPSULE 635089 CEFDINIR Inactive ZITHROMAX 250 MG ORAL TABLET 2 po today, then 1 po q days 2-5 20 03/07/07 ZITHROMAX 250 MG ORAL TABLET 346699 AZITHROMYCIN [place] ctive CEFDINIR 300 MG ORAL CAPSULE by mouth twice a day 2011 CEFDINIR 300 MG ORAL CAPSULE 259766 CEFDINIR Inactive PREDNISONE 20 MG ORAL TABLET 2 tabs daily for 3 days, 1 tab daily for 3 days, 1/2 tab daily for 2 days PREDNISONE 20 MG ORAL T ABLET 630682 PREDNISONE Inactive AVELOX 400 MG ORAL TABLET 1 tab by mouth daily AVELOX 400 MG ORAL TABLET 199799 MOXIFLOXACIN HCL Inactive AVELOX 400 MG ORAL TABLET 1 tab by mouth daily AVELOX 400 MG ORAL TABLET 561790 MOXIFLOXACIN HCL Inactive PREDNISONE 20 MG ORAL TABLET Take 3 tabs daily for 3 d ays, 2 tabs daily for 3 days, 1 tab daily for 3 days, 1/2 tab daily for 3 days 11/07 PREDNISONE 20 MG ORAL TABLET 761399 PREDNISONE Inactive LEVAQUIN 500 MG ORAL TABLET take one po QD LEVAQUIN 500 MG ORAL TABLET 049445 LEVOFLOXACIN Inactive AZITHROMYCIN 250 MG ORAL TABLET 2 po qd x 1 day, then 1 po q d x 4 days AZITHROMYCIN 250 MG ORAL TABLET 820457 AZITHROMY GIOVANNI Inactive MEDROL 4 MG ORAL TABLET THERAPY PACK 6 tabs on day 1, 5 tabs on day 2, 4 tabs on day 3, 3 tabs on day 4, 2 tabs on day 5, 1 tab on day 6 2013 MEDROL 4 MG ORAL TABLET THERAPY PACK 636633 METHYLPREDNISOLONE [place] ctive CHERATUSSIN AC 100-10 MG/5ML ORAL SYRUP 5ml po q6hr PRN Cough 20 13/04/14 CHERATUSSIN AC 100-10 MG/5ML ORAL SYRUP 167583 GUAIFENE SIN-CODEINE Inactive TRIAMCINOLONE ACETONIDE 0.1 % EXTERNAL CREAM apply three roger es daily prn rash TRIAMCINOLONE ACETONIDE 0.1 % EXTERNAL CREAM 101 4314 TRIAMCINOLONE ACETONIDE Inactive AZITHROMYCIN 250 MG ORAL TABLET 2 po qd x 1 day, then 1 po q d x 4 days AZITHROMYCIN 250 MG ORAL TABLET 546067 AZITHROMY GIOVANNI Inactive MEDROL 4 MG ORAL TABLET THERAPY PACK 6 pills x 1 day, then 5 pills x 1 day then 4 pills x 1 day, then 3 pills x 1 day, then 2 pills x 1 day, then 1 pill x 1 day, then stop MEDROL 4 MG ORAL TABLET THERAPY PACK 747993 METHYLPREDNISOLONE Inactive AMOXICILLIN 500 MG ORAL CAPSULE 1 tab by mouth 3 times daily x 10 days AMOXICILLIN 500 MG ORAL CAPSULE 197189 AMOXICILL IN Inactive AMOXICILLIN 500 MG ORAL CAPSULE 1 tab by mouth 3 times daily x 10 days AMOXICILLIN 500 MG ORAL CAPSULE 058621 AMOXICILL IN Inactive ZITHROMAX 250 MG ORAL TABLET 2 po today, then 1 po q days 2-5 20 12/08/14 ZITHROMAX 250 MG ORAL TABLET 672147 AZITHROMYCIN Greer ctive AUGMENTIN 875-125 MG ORAL TABLET 1 po BID x 10 days 20 13/01/20 AUGMENTIN 875-125 MG ORAL TABLET 199626 AMOXICILLIN-POT CLAVULANATE Inactive ZITHROMAX Z-REYNA 250 MG ORAL TABLET 2 today, then 1 daily for 4 d ays ZITHROMAX Z-REYNA 250 MG ORAL TABLET 377148 AZITHROMYCIN Inactive ZITHROMAX 250 MG ORAL TABLET 2 po today, then 1 po q days 2-5 20 14/03/21 ZITHROMAX 250 MG ORAL TABLET 944622 AZITHROMYCIN Greer ctive ZITHROMAX Z-REYNA 250 MG ORAL TABLET 2 today, then 1 daily for 4 d ays ZITHROMAX Z-REYNA 250 MG ORAL TABLET 023062 AZITHROMYCIN Inactive CEFDINIR 300 MG ORAL CAPSULE 1 po BID x 10 days 06/21 CEFDINIR 300 MG ORAL CAPSULE 983012 CEFDINIR Inactive ZITHROMAX 250 MG ORAL TABLET 2 po today, then 1 po q days 2-5 20 13/08/10 ZITHROMAX 250 MG ORAL TABLET 316256 AZITHROMYCIN [facility] LEVAQUIN 500 MG ORAL TABLET 1 tablet by mouth daily 13/09/24 LEVAQUIN 500 MG ORAL TABLET 488819 LEVOFLOXACIN Inactive SINGULAIR 10 MG ORAL TABLET 1 po qday for allergies 20 14/01/12 SINGULAIR 10 MG ORAL TABLET 085252 MONTELUKAST SODIUM Inactive AMOXICILLIN 500 MG ORAL CAPSULE 2 po BID x 10 days 201 09/29/08 AMOXICILLIN 500 MG ORAL CAPSULE 174905 AMOXICILLIN Inactive PREDNISONE 20 MG ORAL TABLET 2 tabs daily for 3 days, 1 tab daily for 3 days, 1/2 tab daily for 2 days PREDNISONE 20 MG ORAL T ABLET 807223 PREDNISONE Inactive ZITHROMAX Z-REYNA 250 MG ORAL TABLET 2 today, then 1 daily for 4 d ays ZITHROMAX Z-REYNA 250 MG ORAL TABLET 611932 AZITHROMYCIN Inactive PREDNISONE 20 MG ORAL TABLET 2 tabs daily for 3 days, 1 tab daily for 3 days, 1/2 tab daily for 2 days PREDNISONE 20 MG ORAL T ABLET 831013 PREDNISONE Inactive ZITHROMAX 250 MG ORAL TABLET 2 po today, then 1 po q days 2-5 20 14/09/04 ZITHROMAX 250 MG ORAL TABLET 874858 AZITHROMYCIN [facility] AMOXICILLIN 500 MG ORAL CAPSULE 1 cap by mouth three times a day AMOXICILLIN 500 MG ORAL CAPSULE 252390 AMOXICILLIN Inactive TERBINAFINE HCL 250 MG ORAL TABLET 1 qDay for nail fungus 7 TERBINAFINE HCL 250 MG ORAL TABLET 216303 TERBINAFINE HCL Inact nael AUGMENTIN 875-125 MG ORAL TABLET 1 po BID x 10 days 16/03/22 AUGMENTIN 875-125 MG ORAL TABLET 137470 AMOXICILLIN-POT CLAVULANATE Inactive PREDNISONE 20 MG ORAL TABLET 2 po qd x 5 days PREDNISONE 20 MG ORAL TABLET 522066 PREDNISONE Inactive AZITHROMYCIN 250 MG ORAL TABLET 2 po qd x 1 day, then 1 po q d x 4 days AZITHROMYCIN 250 MG ORAL TABLET 218813 AZITHROMY GIOVANNI Inactive PREDNISONE 50 MG ORAL TABLET Take 50 mg dialy for 6 day s 7 PREDNISONE 50 MG ORAL TABLET 942031 PREDNISONE Inactive AUGMENTIN 875-125 MG ORAL TABLET 1 po BID x 10 days 18/04/16 AUGMENTIN 875-125 MG ORAL TABLET 218949 AMOXICILLIN-POT CLAVULANATE Inactive DOXYCYCLINE HYCLATE 100 MG ORAL CAPSULE 1 cap by mouth twice latasha ly DOXYCYCLINE HYCLATE 100 MG ORAL CAPSULE 0106855 DOXYCYCL INE HYCLATE Inactive PREDNISONE 20 MG ORAL TABLET Take 2 tabs day 1 and 2 and 1 t ab days 3 and 4 PREDNISONE 20 MG ORAL TABLET 932745 PREDNISONE Inactive Vital Signs Date Name Value [...] - Chem istry sodium, serum 139 mmol/L 943-043 3662/10/12 potassium, serum 3.8 mmol/L 3.5-5.2 chloride, serum 102 mmol/L 98-107 carbon dioxide, venous blood 29.4 mmol/L 21.0-32 .0 blood glucose 103 mg/dL 65-95 calcium, serum 8.8 mg/dL 8.5-10.1 urea nitrogen, blood 10 mg/dL 7-18 creatinine, serum 0.97 mg/dL 0.60-1.30 Estimated Glomerular Filtration Rate (calc) 62 (?) mL/min/1.73m2 = OR > 60 mL/min Encounters Code Encounter Date Provider Facility CPT-79141 [id number] Vst-Est Level IV 08:41:[address] Carlton Hu MD [facility] CPT-78209 Level 3 Est. Patient 09:46:49 AVIATION ELECTRICIAN David lion [facility]-70186 [id number] Vst-Est Level III 11:12:16 CDT Yanet Bess DO [facility] CPT-09188 Level 3 Est. Patient 11:34:49 [employer]IATION ELECTRICIAN Preez Mora MD [facility] CPT-62154 Level 4 Est. Patient 09:51:32 AVIATION ELECTRICIAN Carlton rich MD [facility] CPT-55206 Level 3 Est. Patient 10:26:00 AVIATION ELECTRICIAN Elise stephenson [facility] CPT-57990 Level 3 Est. Patient 13:35:41 AVIATION ELECTRICIAN Carlton rich MD [facility]-13801 Level 3 Est. Patient 10:03:52 AVIATION ELECTRICIAN Carlton rich MD [facility] CPT-82043 Level 3 Est. Patient 12:17:50 CDT Hugo Restrepo MD [facility]-77746 Level 3 Est. Patient 13:42:38 CDT Elise Are [facility] CPT-42690 Level 3 Est. Patient 13:23:51 CDT Diya cobian [facility] CPT-77056 Level 3 Est. Patient 14:22:19 AVIATION ELECTRICIAN Astridgreer Mariana cobian [facility] CPT-95021 Level 3 Est. Patient 10:11:46 CDT Carlton rich MD [facility] CPT-96939 Level 3 Est. Patient 17:29:43 CDT Elise Are [facility] CPT-39546 Level 3 Est. Patient 11:58:06 CDT Elise Are [facility] CPT-94057 Level 4 Est. Patient 14:36:51 CDT Carlton rich MD [facility] CPT-91808 Level 3 Est. Patient 18:16:00 AVIATION ELECTRICIAN Blaine HERNANDEZ [facility] CPT-43051 Level 3 Est. Patient 09:45:49 AVIATION ELECTRICIAN Carlton rich MD [facility] CPT-94982 Level 3 Est. Patient 13:19:20 CDT Carlton rich MD [facility] CPT-50897 Level 3 Est. Patient 13:06:43 CDT Ridge tam DO [facility] CPT-70569 Level 3 Est. Patient 10:03:07 CDT Perez Mora MD [facility] CPT-90588 Level 3 Est. Patient 19:50:35 AVIATION ELECTRICIAN Carlton rich MD [facility] CPT-93648 Level 4 Est. Patient 18:05:01 AVIATION ELECTRICIAN Carlton rich MD [facility] CPT-25854 Level 3 Est. Patient 10:45:55 AVIATION ELECTRICIAN Hugo Restrepo MD [facility] CPT-21845 Level 3 Est. Patient 14:12:49 CDT Griffin HERNANDEZ [facility] CPT-49763 Level 3 Est. Patient 17:37:24 CDT Carlton rich MD [facility] CPT-70679 Level 3 Est. Patient 16:51:54 CDT Carlton rich MD [facility] CPT-87250 Level 3 Est. Patient 12:18:11 CDT Hugo Restrepo MD [facility] CPT-42942 Level 3 Est. Patient 11:30:25 CDT Marcy crisostomo MD PhD [facility] CPT-56210 Level 3 Est. Patient 12:00:47 AVIATION ELECTRICIAN Carlton rich MD [facility] CPT-17619 Level 3 Est. Patient 16:31:06 AVIATION ELECTRICIAN Carlton rich MD [facility] CPT-89236 Level 3 Est. Patient 16:23:24 AVIATION ELECTRICIAN Ridge tam [facility] CPT-22848 Level 3 Est. Patient 12:34:12 CDT Carlton rich MD [facility] CPT-79334 Level 2 Est. Patient 15:43:33 CDT Robi armstrong MD [facility] CPT-85222 Level 4 Est. Patient 14:04:44 CDT Carlton rich MD [facility] CPT-73163 Level 3 Est. Patient 05:47:59 CDT Ridge tam [facility] CPT-05321 Level 3 Est. Patient 13:12:53 [employer]IATION ELECTRICIAN Carlton rich MD [facility] CPT-36160 Level 3 Est. Patient 14:26:53 CDT Hugo [...] CPT-J1100 Decadron 6mg (Dexamethasone) 14:32:13 CDT 2 CPT-03952 Hip bilat min 2V w AP pelvis 13:16:20 CDT 2 CPT-42274 Pelvis only 13:07:33 CDT CPT-02449 Spec Collection and Handling Fee 11:25:12 C DT CPT-61893 Fluzone Quadrivalent Intramuscular Suspe nsion 0.5 ML 14:31:55 CDT CPT-02490 Abx/Therapy Injection 13:28:47 [employer]IATION ELECTRICIAN CPT-J2930 Solu Medrol 125 mg (Methyl Prednisolone Sodium Succinate) 12:00:47 [employer]IATION ELECTRICIAN CPT-94831 Venipuncture Draw Fee 11:33:31 CDT CPT-86133 EKG Trac and Interp 11:21:09 CDT CPT-73625 Chest 2V Frontal and Lat 11:21:09 CDT 12/15 CPT-07829 Venipuncture Draw Fee 08:02:34 CDT CPT-57985 Chest 2V Frontal and Lat 05:47:59 CDT 06/05
--- OUTSIDE RECORDS SUMMARY | 2019-10-08 09:11 | XMS REPORT | Clinical Summary ---
Author Author Caitlin, Juliana Martinez Organization [facility] Address Unknown Phone Unavailable [...] Unspecified sinusitis (chronic) Bronchitis 490 Resolved Hugo Resterpo MD Bronchitis, not specified as acute or [...] Morbid obesity due to excess calories [facility] t David Lopes APRN Obesity, unspecified Obesity [...] MD P HEALTH SCREENING ICD-V70.0 Inactive Marcy ay MD PhD CHEST WALL PAIN, ACUTE ICD-786.52 [...] - acute ICD-465.9 Inactive Hugo Restrepo MD SINUSITIS, ACUTE ICD-461.9 Inactive Hugo dominguez MD [...] by mouth daily for depression DULOXETINE HCL 07792174457 No Longer Active Carlton Hu MD Active CYMBALTA 60 MG ORAL CAPSULE DELAYED RELEASE PARTICLES 1 cap by mouth daily for mood and pain DULOXETINE HCL 97442777793 Active Carlton Hu MD Active TUSSIONEX PENNKINETIC ER 10-8 MG/5ML ORAL SUSPENSION E XTENDED RELEASE 5ml po q12hr PRN Cough HYDROCOD POLST-CHLORPHEN POLST 07574313102 Active David Marianne PLACEMENT DIRECTOR Active PREDNISONE 20 MG ORAL TABLET Take 2 tabs day 1 and 2 and 1 t ab days 3 and 4 PREDNISONE 70107068413 No Longer Active David Marianne PLACEMENT DIRECTOR Active DOXYCYCLINE HYCLATE 100 MG ORAL CAPSULE 1 cap by mouth twice latasha ly DOXYCYCLINE HYCLATE 84461145701 No Longer Active David Lopes PLACEMENT DIRECTOR Active TOPAMAX 100 MG ORAL TABLET Take 1 tablet po bid TOPIRAMATE 05942156999 No Longer Active David Marianne PLACEMENT DIRECTOR Active TUSSIONEX PENNKINETIC ER 10-8 MG/5ML ORAL SUSPENSION E XTENDED RELEASE 5ml po q12hr PRN Cough HYDROCOD POLST-CHLORPHEN POLST 5 7965596558 No Longer Active David Marianne PLACEMENT DIRECTOR Active AUGMENTIN 875-125 MG ORAL TABLET 1 po BID x 10 days 18/04/16 AMOXICILLIN-POT CLAVULANATE 04035819157 No Longer Active David Lopes PLACEMENT DIRECTOR Active PREDNISONE 50 MG ORAL TABLET Take 50 mg dialy for 6 day s 7 PREDNISONE 33391058046 No Longer Active David Marianne PLACEMENT DIRECTOR Active TUSSIONEX PENNKINETIC ER 10-8 MG/5ML ORAL SUSPENSION E XTENDED RELEASE 5ml po q12hr PRN Cough HYDROCOD POLST-CHLORPHEN POLST 5 7240110807 No Longer Active Cherelle Torres RN Active PREDNISONE 20 MG ORAL TABLET two tabs by mouth today, then one tab by mouth days two and three and four PREDNISONE 41330320060 No Lo nger Active Chreelle Torres RN Active AZITHROMYCIN 250 MG ORAL TABLET 2 po qd x 1 day, then 1 po q d x 4 days AZITHROMYCIN 44300375995 No Longer Active Ridge Bess DO Active PREDNISONE 20 MG ORAL TABLET 2 po qd x 5 days P REDNISONE 18169965938 No Longer Active Perez Mora MD Active PROAIR HFA 108 (90 BASE) MCG/ACT INHALATION AEROSOL SO LUTION 2 puffs four times a day as needed ALBUTEROL SULFATE 51263176637 No Long er Active Becky AGUILARA Active ASPIRIN 81 MG ORAL TABLET 1 po qd ASPIRIN 93212224513 Active Carlton Hu MD Active PREDNISONE 20 MG ORAL TABLET 1 tab twice daily for 3 d ay, then one daily for three days PREDNISONE 29235604995 No Longer Active Carlton Hu MD Active AUGMENTIN 875-125 MG ORAL TABLET 1 po BID x 10 days 16/03/22 AMOXICILLIN-POT CLAVULANATE 56673700937 No Longer Active Elise Garcia APRN Active TERBINAFINE HCL 250 MG ORAL TABLET 1 qDay for nail fungus 7 TERBINAFINE HCL 60324965688 No Longer Active Carlton Hu MD A ctive AMOXICILLIN 500 MG ORAL CAPSULE 1 cap by mouth three times a day AMOXICILLIN 00477166226 No Longer Active Carlton Hu MD Active ELMIRON 100 MG ORAL CAPSULE 2 tablets in the am and 1 tablet at hs PENTOSAN POLYSULFATE SODIUM 63176442937 No Longer Active Robert jade Hu MD Active MUCINEX D 60-600 MG ORAL TABLET EXTENDED RELEASE 12 HOUR 1 t ab po q am PSEUDOEPHEDRINE-GUAIFENESIN 57698686278 No Longer Act nael Carlton uH MD Active MUCINEX DM MAXIMUM STRENGTH 60-1200 MG ORAL TABLET EXT ENDED RELEASE 12 HOUR 1 tab po q am DEXTROMETHORPHAN-GUAIFENESIN 32130277739 No Longer Active Carlton Hu MD Active TUSSIONEX PENNKINETIC ER 10-8 MG/5ML ORAL SUSPENSION E XTENDED RELEASE 5ml po q12hr PRN Cough HYDROCOD POLST-CHLORPHEN POLST 5 0856589332 No Longer Active Carlton Hu MD Active POTASSIUM CHLORIDE ER 20 MEQ ORAL TABLET EXTENDED RELE ASE Take 1 by mouth 4 times daily for 7 days POTASSIUM CHLORIDE 54039034396 No Longer Active Carlton Hu MD Active ZITHROMAX 250 MG ORAL TABLET 2 po today, then 1 po q days 2-5 20 14/09/04 AZITHROMYCIN 61447809718 No Longer Active Elise Garcia APRN Active TUSSIONEX PENNKINETIC ER 10-8 MG/5ML ORAL SUSPENSION E XTENDED RELEASE 5 ml twice a day as needed for cough HYDROCOD POLST-CHLORPH EN POLST 31216606795 No Longer Active Elise Garcia APRN Active MONTELUKAST SODIUM 10 MG ORAL TABLET 1 po daily for Allergy MONTELUKAST SODIUM 54368781876 Active Carlton Hu MD Ac tive TUSSIONEX PENNKINETIC ER 10-8 MG/5ML ORAL SUSPENSION E XTENDED RELEASE 5ml po q12hr PRN Cough HYDROCOD POLST-CHLORPHEN POLST 5 5780731162 No Longer Active Hugo Restrepo MD Active GABAPENTIN 100 MG ORAL CAPSULE 1 po BID for fibromyalgia GABAPENTIN 27813980315 Active ALFREDO Holly Active LYRICA 100 MG ORAL CAPSULE Take 1 tab po BID for fibromyalgia 20 11/08/21 PREGABALIN 46393736394 No Longer Active Elise Garcia APRN A ctive PREDNISONE 20 MG ORAL TABLET 2 tabs daily for 3 days, 1 tab daily for 3 days, 1/2 tab daily for 2 days PREDNISONE 44063470458 No Longer Active Diya De Guzman APRN Active TUSSIONEX PENNKINETIC ER 10-8 MG/5ML ORAL SUSPENSION E XTENDED RELEASE 5 mL PO q 12 hrs PRN cough HYDROCOD POLST-CHLORPHEN POLST 256114 33783 No Longer Active Jillina Frazell PLACEMENT DIRECTOR Active FLUTICASONE PROPIONATE 50 MCG/ACT NASAL SUSPENSION 2 s prays each nostril daily until bottle is empty FLUTICASONE PROPIONATE 299784580 99 No Longer Active Jillina Frazell PLACEMENT DIRECTOR Active ASMANEX 60 METERED DOSES 220 MCG/INH INHALATION AEROSO L POWDER BREATH ACTIVATED 1 puff bid with rinse after MOMETASONE FUROATE 7643042 4102 No Longer Active Jillina Frazell PLACEMENT DIRECTOR Active ZITHROMAX Z-REYNA 250 MG ORAL TABLET 2 today, then 1 daily for 4 d ays AZITHROMYCIN 23588660090 No Longer Active Elise Garcia APRN Active TUSSIONEX PENNKINETIC ER 10-8 MG/5ML ORAL SUSPENSION E XTENDED RELEASE 5ml po q12hr PRN Cough HYDROCOD POLST-CHLORPHEN POLST 5 1917157358 No Longer Active Elise Garcia APRN Active PREDNISONE 20 MG ORAL TABLET 2 tabs daily for 3 days, 1 tab daily for 3 days, 1/2 tab daily for 2 days PREDNISONE 42498740800 No Longer Active Diya De Guzman APRN Active AMOXICILLIN 500 MG ORAL CAPSULE 2 po BID x 10 days 201 09/29/08 AMOXICILLIN 78149195077 No Longer Active Jiriley De Guzman APRN Act nael SINGULAIR 10 MG ORAL TABLET 1 po qday for allergies 20 14/01/12 MONTELUKAST SODIUM 12492698130 No Longer Active Carlton Hu MD Active LEVAQUIN 500 MG ORAL TABLET 1 tablet by mouth daily 20 13/09/24 LEVOFLOXACIN 21962393018 No Longer Active Carlton Hu MD Acti ve FLUTICASONE PROPIONATE 50 MCG/ACT NASAL SUSPENSION 2 s prays each nostril daily for 2 weeks, then 1 spray each nostril daily. FLUTICASONE PROPIONATE 19691325009 Active Carlton Hu MD Active ZITHROMAX 250 MG ORAL TABLET 2 po today, then 1 po q days 2-5 20 13/08/10 AZITHROMYCIN 91485096129 No Longer Active Elise Garcia APRN Active XANAX 0.5 MG ORAL TABLET one tablet by mouth daily prn anxiety 2015 ALPRAZOLAM 88314388391 Active ALFREDO Holly Active CEFDINIR 300 MG ORAL CAPSULE 1 po BID x 10 days CEFDINIR 18214440938 No Longer Active Carlton Hu MD Active ZOCOR 40 MG ORAL TABLET 1 tab by mouth daily SI MVASTATIN 38074595892 No Longer Active Carlton Hu MD Active CYCLOBENZAPRINE HCL 10 MG ORAL TABLET 1 tablet by mouth BID prn had pain CYCLOBENZAPRINE HCL 25616283781 No Longer Active Jayden Hu MD Active LEVOFLOXACIN 500 MG ORAL TABLET 1 tab PO daily x 10 days LEVOFLOXACIN 01381180563 No Longer Active Carlton Hu MD Acti ve PREDNISONE 20 MG ORAL TABLET 3 tab PO qd x 2d, 2 tab P O qd x 2d, 1 tab PO qd x 2d, 1/2 tab PO qd x 2d PREDNISONE 04774986924 No Lo nger Active Carlton Hu MD Active FLUTICASONE PROPIONATE 50 MCG/ACT NASAL SUSPENSION 1 t o 2 sprays each nostril daily FLUTICASONE PROPIONATE 53791819869 No Longer Ac tive Blaine HERNANDEZ Active CHERATUSSIN AC 100-10 MG/5ML ORAL SYRUP 1 tsp by mouth every 4 hours as needed for cough GUAIFENESIN-CODEINE 87898093560 No Longe r Active Blaine HERNANDEZ Active PROMETHAZINE-CODEINE 6.25-10 MG/5ML ORAL SYRUP 1 tsp b y mouth every 6 hours if needed for cough PROMETHAZINE-CODEINE 85487669856 No Longer Active Blaine HERNANDEZ Active CHERATUSSIN AC 100-10 MG/5ML ORAL SYRUP 1 tsp by mouth every 4 hours as needed for cough GUAIFENESIN-CODEINE 06000161405 No Longe r Active Blaine HERNANDEZ Active ZITHROMAX Z-ERYNA 250 MG ORAL TABLET 2 today, then 1 daily for 4 d ays AZITHROMYCIN 07376413257 No Longer Active Columba Raida Act nael ZITHROMAX 250 MG ORAL TABLET 2 po today, then 1 po q days 2-5 20 14/03/21 AZITHROMYCIN 20453680240 No Longer Active Carlton Hu MD Active ZITHROMAX Z-REYNA 250 MG ORAL TABLET 2 today, then 1 daily for 4 d ays AZITHROMYCIN 63749512599 No Longer Active Columba Raida Act nael AUGMENTIN 875-125 MG ORAL TABLET 1 po BID x 10 days 13/01/20 AMOXICILLIN-POT CLAVULANATE 69504518407 No Longer Active Diya De Guzman APRN Active ZITHROMAX 250 MG ORAL TABLET 2 po today, then 1 po q days 2-5 12/08/14 AZITHROMYCIN 78218902214 No Longer Active Carlton Hu MD Active TRAMADOL HCL 50 MG ORAL TABLET 1 po tid with ES Tylenol TRAMADOL HCL 32984659405 Active ALFREDO Holly Active PREMARIN 0.625 MG ORAL TABLET TAKE 1 TAB BY MOUTH DAILY ESTROGENS CONJUGATED 15867145570 No Longer Active Ridge Bess DO A ctive CYMBALTA 30 MG ORAL CAPSULE DELAYED RELEASE PARTICLES 1 cap by mouth daily DULOXETINE HCL 12362489760 No Longer Active Ridge tam DO Active AMOXICILLIN 500 MG ORAL CAPSULE 1 tab by mouth 3 times daily x 10 days AMOXICILLIN 27447162632 No Longer Active Carlton bustamante MD Active AMOXICILLIN 500 MG ORAL CAPSULE 1 tab by mouth 3 times daily x 10 days AMOXICILLIN 68603090189 No Longer Active Carlton bustamante MD Active PROMETHAZINE-CODEINE 6.25-10 MG/5ML ORAL SYRUP 1 tsp b y mouth every 8 hours prn cough PROMETHAZINE-CODEINE 04392617010 No Longer Acti ve Carlton Hu MD Active MEDROL 4 MG ORAL TABLET THERAPY PACK 6 pills x 1 day, then 5 pills x 1 day then 4 pills x 1 day, then 3 pills x 1 day, then 2 pills x 1 day, then 1 pill x 1 day, then stop METHYLPREDNISOLONE 72505898278 No Long er Active Perez Mora MD Active AZITHROMYCIN 250 MG ORAL TABLET 2 po qd x 1 day, then 1 po q d x 4 days AZITHROMYCIN 02003419406 No Longer Active Perez Ambriz MD Active SYMBICORT 160-4.5 MCG/ACT INHALATION AEROSOL 2 puffs bid wit h rinse after BUDESONIDE-FORMOTEROL FUMARATE 08516647277 N o Longer Active Perez Mora MD Active LYRICA 75 MG ORAL CAPSULE TAKE 1 CAPSULE BY MOUTH TWICE DAILY PREGABALIN 34920788923 No Longer Active Carlton Hu MD Acti ve TOPAMAX 25 MG ORAL TABLET 1 qHS x 1 week, then 1 BID x 1 week, then 1 qAM and 2 qHS x 1 week, then 2 BID (migraine prevention) T OPIRAMATE 98081485552 No Longer Active Jerica FUENTES Active TOPAMAX 50 MG ORAL TABLET take 1 tab po BID for migraines. 07/02 TOPIRAMATE 34143294142 No Longer Active Jerica FUENTES Active TRIAMCINOLONE ACETONIDE 0.1 % EXTERNAL CREAM apply three roger es daily prn rash TRIAMCINOLONE ACETONIDE 73916669469 No Longer Active Carlton Hu MD Active PAXIL 40 MG ORAL TABLET take 1 tab po qday for depression 0 PAROXETINE HCL 54386827687 Active Carlton Hu MD Active CHERATUSSIN AC 100-10 MG/5ML ORAL SYRUP 5ml po q6hr PRN Cough 20 13/04/14 GUAIFENESIN-CODEINE 45926110814 No Longer Active Carlton Hu MD Active MEDROL 4 MG ORAL TABLET THERAPY PACK 6 tabs on day 1, 5 tabs on day 2, 4 tabs on day 3, 3 tabs on day 4, 2 tabs on day 5, 1 tab on day 6 2013 METHYLPREDNISOLONE 29069166058 No Longer Active Perez Mora MD Active AZITHROMYCIN 250 MG ORAL TABLET 2 po qd x 1 day, then 1 po q d x 4 days AZITHROMYCIN 12129703235 No Longer Active Perez Ambriz MD Active PROPRANOLOL HCL 60 MG ORAL TABLET 1 PO Q D PROPRANOLOL HCL 39917160148 No Longer Active Perez Mora MD Activ e CHERATUSSIN AC 100-10 MG/5ML ORAL SYRUP take one tsp po Q 6h ours prn cough GUAIFENESIN-CODEINE 06180129246 No Longer Active Zia Mora MD Active AUGMENTIN 875-125 MG ORAL TABLET 1 tab by mouth twice daily with food AMOXICILLIN-POT CLAVULANATE 07151302862 No Longer Act nael Mora MD Active CHERATUSSIN AC 100-10 MG/5ML ORAL SYRUP 1 tsp by mouth every 4 hours as needed for cough GUAIFENESIN-CODEINE 94235191569 No Longe r Active Hugo Restrepo MD Active ACETAMINOPHEN-CODEINE #3 300-30 MG ORAL TABLET 1 PO Q 4-6 HRS MA N PAIN ACETAMINOPHEN-CODEINE 68340776964 No Longer Active Hugo Restrepo MD Active LEVAQUIN 500 MG ORAL TABLET take one po QD LEVO FLOXACIN 35513877855 No Longer Active Griffin HERNANDEZ Active PREDNISONE 20 MG ORAL TABLET Take 3 tabs daily for 3 d ays, 2 tabs daily for 3 days, 1 tab daily for 3 days, 1/2 tab daily for 3 days 11/07 PREDNISONE 18423833440 No Longer Active Carlton Hu MD Acti ve AVELOX 400 MG ORAL TABLET 1 tab by mouth daily MOXIFLOXACIN HCL 84165559528 No Longer Active Carlton Hu MD Active CHERATUSSIN AC 100-10 MG/5ML ORAL SYRUP 1 tsp by mouth every 4 hours as needed for cough GUAIFENESIN-CODEINE 82188375544 No Longe r Active Hugo Restrepo MD Active AVELOX 400 MG ORAL TABLET 1 tab by mouth daily MOXIFLOXACIN HCL 67227852966 No Longer Active Marcy De La Rosa MD PhD Active TERBINAFINE HCL 250 MG ORAL TABLET 1 qDay T ERBINAFINE HCL 69436003260 No Longer Active Marcy De La Rosa MD PhD Active CHERATUSSIN AC 100-10 MG/5ML ORAL SYRUP 1 tsp by mouth every 4 hours as needed for cough GUAIFENESIN-CODEINE 03840075654 No Longe r Active Marcy De La Rosa MD PhD Active AVELOX 400 MG ORAL TABLET 1 tab by mouth daily MOXIFLOXACIN HCL 63102303645 No Longer Active Marcy De La Rosa MD PhD Active HYDROCODONE-ACETAMINOPHEN 5-325 MG ORAL TABLET 1 po q 6hr PRN co ugh HYDROCODONE-ACETAMINOPHEN 91241023629 No Longer Active Marcy De La Rosa MD PhD Active PREDNISONE 20 MG ORAL TABLET 2 tabs daily for 3 days, 1 tab daily for 3 days, 1/2 tab daily for 2 days PREDNISONE 32627776392 No Longer Active Carlton Hu MD Active CEFDINIR 300 MG ORAL CAPSULE by mouth twice a day 2011 CEFDINIR 18133157239 No Longer Active Carlton Hu MD Acti ve HYDROCHLOROTHIAZIDE 25 MG ORAL TABLET 1 TAB PO DAILY HYDROCHLOROTHIAZIDE 64251027782 Active Carlton Hu MD A ctive ACETAMINOPHEN-CODEINE #3 300-30 MG ORAL TABLET 1 tablet po q 4-6 hrs prn pain ACETAMINOPHEN-CODEINE 68940033257 No Longer Active Ridge Bess DO Active ZITHROMAX 250 MG ORAL TABLET 2 po today, then 1 po q days 2-5 20 03/07/07 AZITHROMYCIN 43701345797 No Longer Active Carlton Hu MD Active CHERATUSSIN AC 100-10 MG/5ML ORAL SYRUP take 1 tsp po q4-6 h ours prn cough GUAIFENESIN-CODEINE 68763766126 No Longer Active Jayden Hu MD Active ACETAMINOPHEN-CODEINE #3 300-30 MG ORAL TABLET 1 PO Q 4-6 HR PRN PAIN ACETAMINOPHEN-CODEINE 38484670103 No Longer Active Arnol Hu MD Active LORTAB 7.5-500 MG/15ML ORAL ELIXIR 7.5 ml po q 4 hour prn cough HYDROCODONE-ACETAMINOPHEN 67249569823 No Longer Active Carlton Hu MD Active PREDNISONE 20 MG ORAL TABLET 1 po bid 3 days, then 1 po q day 3 days PREDNISONE 88784357902 No Longer Active Carlton Hu MD Active CEFDINIR 300 MG ORAL CAPSULE by mouth twice a day 2011 CEFDINIR 50765794135 No Longer Active Carlton Hu MD Acti ve CEFDINIR 300 MG ORAL CAPSULE by mouth twice a day 2010 CEFDINIR 60750650573 No Longer Active Carlton Hu MD Acti ve CEFDINIR 300 MG ORAL CAPSULE by mouth twice a day 2010 CEFDINIR 70296662670 No Longer Active Carlton Hu MD Acti ve TESSALON PERLES 100 MG ORAL CAPSULE 1 tablet by mouth 3 times daily as needed for cough BENZONATATE 57066671870 No Longer Active Carlton Hu MD Active CEFDINIR 300 MG ORAL CAPSULE by mouth twice a day 2010 CEFDINIR 33830325092 No Longer Active Carlton Hu MD Acti ve ZITHROMAX Z-REYNA 250 MG ORAL TABLET 2 today, then 1 daily for 4 d ays AZITHROMYCIN 04895894271 No Longer Active Hugo Restrepo MD Active TESSALON PERLES 100 MG ORAL CAPSULE 1 tablet by mouth 3 times daily as needed for cough TESSALON PERLES 100 MG ORAL CAPSULE 02421 7 BENZONATATE Inactive PREDNISONE 20 MG ORAL TABLET 1 po bid 3 days, then 1 po q day 3 days PREDNISONE 20 MG ORAL TABLET 339520 PREDNISONE [place] ctive LORTAB 7.5-500 MG/15ML ORAL [...] cough CHERATUSSIN AC 100-10 MG/5ML ORAL SYRUP 740305 GUAIFENESIN-CODEINE Inactive ACETAMINOPHEN-CODEINE #3 300-30 MG ORAL TABLET 1 tablet po q 4-6 hrs prn pain ACETAMINOPHEN-CODEINE #3 300-30 MG ORAL TABLET ACETAMINOPHEN-CODEINE Inactive HYDROCODONE-ACETAMINOPHEN 5-325 MG ORAL TABLET 1 po q 6hr PRN co ugh HYDROCODONE-ACETAMINOPHEN 5-325 MG ORAL TABLET 102310 HYDROCODONE-ACETAMINOPHEN Inactive AVELOX 400 MG ORAL TABLET 1 tab by mouth daily AVELOX 400 MG ORAL TABLET 807064 MOXIFLOXACIN HCL Inactive CHERATUSSIN AC 100-10 MG/5ML ORAL SYRUP 1 tsp by mouth every 4 hours as needed for cough CHERATUSSIN AC 100-10 MG/5ML ORAL SYRUP 9 46087 GUAIFENESIN-CODEINE Inactive TERBINAFINE HCL 250 MG ORAL TABLET 1 qDay 07/08 TERBINAFINE HCL 250 MG ORAL TABLET 739643 TERBINAFINE HCL Inactive CHERATUSSIN AC 100-10 MG/5ML ORAL SYRUP 1 tsp by mouth every 4 hours as needed for cough CHERATUSSIN AC 100-10 MG/5ML ORAL SYRUP 9 89137 GUAIFENESIN-CODEINE Inactive ACETAMINOPHEN-CODEINE #3 300-30 MG ORAL TABLET 1 PO Q 4-6 HRS MA N PAIN ACETAMINOPHEN-CODEINE #3 300-30 MG ORAL TABLET ACETAMINOPHEN-CODEINE Inactive CHERATUSSIN AC 100-10 MG/5ML ORAL SYRUP 1 tsp by mouth every 4 hours as needed for cough CHERATUSSIN AC 100-10 MG/5ML ORAL SYRUP 9 70723 GUAIFENESIN-CODEINE Inactive AUGMENTIN 875-125 MG ORAL TABLET 1 tab by mouth twice daily with food AUGMENTIN 875-125 MG ORAL TABLET 396887 AMOXICIL MADELINE-POT CLAVULANATE Inactive CHERATUSSIN AC 100-10 MG/5ML ORAL SYRUP take one tsp po Q 6h ours prn cough CHERATUSSIN AC 100-10 MG/5ML ORAL SYRUP 404818 GUAIFENESIN-CODEINE Inactive PROPRANOLOL HCL 60 MG ORAL TABLET 1 PO Q D PROPRANOLOL HCL 60 MG ORAL TABLET 562825 PROPRANOLOL HCL Inactive TOPAMAX 50 MG ORAL TABLET take 1 tab po BID for migraines. 07/02 TOPAMAX 50 MG ORAL TABLET 915762 TOPIRAMATE Inacti ve TOPAMAX 25 MG ORAL TABLET 1 qHS x 1 week, then 1 BID x 1 week, then 1 qAM and 2 qHS x 1 week, then 2 BID (migraine prevention) TOPAMAX 25 MG ORAL TABLET 532642 TOPIRAMATE Inactive LYRICA 75 MG ORAL CAPSULE TAKE 1 CAPSULE BY MOUTH TWICE DAILY LYRICA 75 MG ORAL CAPSULE PREGABALIN Inactive SYMBICORT 160-4.5 MCG/ACT INHALATION AEROSOL 2 puffs bid wit h rinse after SYMBICORT 160-4.5 MCG/ACT INHALATION AEROSOL BUDESONIDE- FORMOTEROL FUMARATE Inactive PROMETHAZINE-CODEINE 6.25-10 MG/5ML ORAL SYRUP 1 tsp b y mouth every 8 hours prn cough PROMETHAZINE-CODEINE 6.25-10 MG/ 5ML ORAL SYRUP 625127 PROMETHAZINE-CODEINE Inactive CYMBALTA 30 MG ORAL CAPSULE DELAYED RELEASE PARTICLES 1 cap by mouth daily CYMBALTA 30 MG ORAL CAPSULE DELAYED RELE ASE PARTICLES 524656 DULOXETINE HCL Inactive PREMARIN 0.625 MG ORAL TABLET TAKE 1 TAB BY MOUTH DAILY PREMARIN 0.625 MG ORAL TABLET ESTROGENS CONJUGATED Inactive CHERATUSSIN AC 100-10 MG/5ML ORAL SYRUP 1 tsp by mouth every 4 hours as needed for cough CHERATUSSIN AC 100-10 MG/5ML ORAL SYRUP 9 45070 GUAIFENESIN-CODEINE Inactive PROMETHAZINE-CODEINE 6.25-10 MG/5ML ORAL SYRUP 1 tsp b y mouth every 6 hours if needed for cough PROMETHAZINE-CODEINE 6.25-10 MG/5ML ORAL SYRUP 959691 PROMETHAZINE-CODEINE Inactive CHERATUSSIN AC 100-10 MG/5ML ORAL SYRUP 1 tsp by mouth every 4 hours as needed for cough CHERATUSSIN AC 100-10 MG/5ML ORAL SYRUP 9 04103 GUAIFENESIN-CODEINE Inactive FLUTICASONE PROPIONATE 50 MCG/ACT NASAL SUSPENSION 1 t o 2 sprays each nostril daily FLUTICASONE PROPIONATE 50 MCG/AC T NASAL SUSPENSION 4224020 FLUTICASONE PROPIONATE Inactive PREDNISONE 20 MG ORAL TABLET 3 tab PO qd x 2d, 2 tab P O qd x 2d, 1 tab PO qd x 2d, 1/2 tab PO qd x 2d PREDNISONE 20 MG ORAL TAB LET 096773 PREDNISONE Inactive LEVOFLOXACIN 500 MG ORAL TABLET 1 tab PO daily x 10 days LEVOFLOXACIN 500 MG ORAL TABLET 856664 LEVOFLOXACIN Inactive CYCLOBENZAPRINE HCL 10 MG ORAL TABLET 1 tablet by mouth BID prn had pain CYCLOBENZAPRINE HCL 10 MG ORAL TABLET 173454 CYCLOBENZAPRINE HCL Inactive ZOCOR 40 MG ORAL TABLET 1 tab by mouth daily 4 ZOCOR 40 MG ORAL TABLET 253511 SIMVASTATIN Inactive TUSSIONEX PENNKINETIC ER 10-8 MG/5ML [...] FLUTICASONE PROPIO EFE 50 MCG/ACT NASAL SUSPENSION 8881283 FLUTICASONE PROPIONATE Inactive TUSSIONEX PENNKINETIC ER 10-8 [...] three days PREDNISONE 20 MG ORAL TABLET 893243 PREDNIS ONE Inactive PROAIR HFA 108 (90 BASE) MCG/ACT INHALATION AEROSOL SO LUTION 2 puffs four times a day as needed PROAIR HFA 108 (90 B ASE) MCG/ACT INHALATION AEROSOL SOLUTION ALBUTEROL SULFATE Inactive PREDNISONE 20 MG ORAL TABLET two tabs by mouth today, then one tab by mouth days two and three and four PREDNISONE 20 MG ORAL TAB LET 306251 PREDNISONE Inactive TUSSIONEX PENNKINETIC ER 10-8 MG/5ML [...] bid 04/20 TOPAMAX 100 MG ORAL TABLET 061171 TOPIRAMATE Inactive CYMBALTA 30 MG ORAL CAPSULE DELAYED RELEASE PARTICLES 1 cap by mouth daily for depression CYMBALTA 30 MG ORAL CAPSULE DELAYED RELEASE PARTICLES 531116 DULOXETINE HCL Inactive ZITHROMAX Z-REYNA 250 MG ORAL TABLET 2 today, then 1 daily for 4 d ays ZITHROMAX Z-REYNA 250 MG ORAL TABLET 071081 AZITHROMYCIN Inactive CEFDINIR 300 MG ORAL CAPSULE by mouth twice a day 2010 CEFDINIR 300 MG ORAL CAPSULE 513062 CEFDINIR Inactive CEFDINIR 300 MG ORAL CAPSULE by mouth twice a day 2010 CEFDINIR 300 MG ORAL CAPSULE 274259 CEFDINIR Inactive CEFDINIR 300 MG ORAL CAPSULE by mouth twice a day 2010 CEFDINIR 300 MG ORAL CAPSULE 225816 CEFDINIR Inactive CEFDINIR 300 MG ORAL CAPSULE by mouth twice a day 2011 CEFDINIR 300 MG ORAL CAPSULE 038266 CEFDINIR Inactive ZITHROMAX 250 MG ORAL TABLET 2 po today, then 1 po q days 2-5 20 03/07/07 ZITHROMAX 250 MG ORAL TABLET 956011 AZITHROMYCIN [place] ctive CEFDINIR 300 MG ORAL CAPSULE by mouth twice a day 2011 CEFDINIR 300 MG ORAL CAPSULE 760672 CEFDINIR Inactive PREDNISONE 20 MG ORAL TABLET 2 tabs daily for 3 days, 1 tab daily for 3 days, 1/2 tab daily for 2 days PREDNISONE 20 MG ORAL T ABLET 842575 PREDNISONE Inactive AVELOX 400 MG ORAL TABLET 1 tab by mouth daily AVELOX 400 MG ORAL TABLET 855775 MOXIFLOXACIN HCL Inactive AVELOX 400 MG ORAL TABLET 1 tab by mouth daily AVELOX 400 MG ORAL TABLET 224146 MOXIFLOXACIN HCL Inactive PREDNISONE 20 MG ORAL TABLET Take 3 tabs daily for 3 d ays, 2 tabs daily for 3 days, 1 tab daily for 3 days, 1/2 tab daily for 3 days 11/07 PREDNISONE 20 MG ORAL TABLET 004793 PREDNISONE Inactive LEVAQUIN 500 MG ORAL TABLET take one po QD LEVAQUIN 500 MG ORAL TABLET 183976 LEVOFLOXACIN Inactive AZITHROMYCIN 250 MG ORAL TABLET 2 po qd x 1 day, then 1 po q d x 4 days AZITHROMYCIN 250 MG ORAL TABLET 902109 AZITHROMY GIOVANNI Inactive MEDROL 4 MG ORAL TABLET THERAPY PACK 6 tabs on day 1, 5 tabs on day 2, 4 tabs on day 3, 3 tabs on day 4, 2 tabs on day 5, 1 tab on day 6 2013 MEDROL 4 MG ORAL TABLET THERAPY PACK 021618 METHYLPREDNISOLONE [place] ctive CHERATUSSIN AC 100-10 MG/5ML ORAL SYRUP 5ml po q6hr PRN Cough 20 13/04/14 CHERATUSSIN AC 100-10 MG/5ML ORAL SYRUP 953207 GUAIFENE SIN-CODEINE Inactive TRIAMCINOLONE ACETONIDE 0.1 % EXTERNAL CREAM apply three roger es daily prn rash TRIAMCINOLONE ACETONIDE 0.1 % EXTERNAL CREAM 101 4314 TRIAMCINOLONE ACETONIDE Inactive AZITHROMYCIN 250 MG ORAL TABLET 2 po qd x 1 day, then 1 po q d x 4 days AZITHROMYCIN 250 MG ORAL TABLET 581743 AZITHROMY GIOVANNI Inactive MEDROL 4 MG ORAL TABLET THERAPY PACK 6 pills x 1 day, then 5 pills x 1 day then 4 pills x 1 day, then 3 pills x 1 day, then 2 pills x 1 day, then 1 pill x 1 day, then stop MEDROL 4 MG ORAL TABLET THERAPY PACK 591654 METHYLPREDNISOLONE Inactive AMOXICILLIN 500 MG ORAL CAPSULE 1 tab by mouth 3 times daily x 10 days AMOXICILLIN 500 MG ORAL CAPSULE 604229 AMOXICILL IN Inactive AMOXICILLIN 500 MG ORAL CAPSULE 1 tab by mouth 3 times daily x 10 days AMOXICILLIN 500 MG ORAL CAPSULE 171062 AMOXICILL IN Inactive ZITHROMAX 250 MG ORAL TABLET 2 po today, then 1 po q days 2-5 20 12/08/14 ZITHROMAX 250 MG ORAL TABLET 597777 AZITHROMYCIN Greer ctive AUGMENTIN 875-125 MG ORAL TABLET 1 po BID x 10 days 20 13/01/20 AUGMENTIN 875-125 MG ORAL TABLET 622919 AMOXICILLIN-POT CLAVULANATE Inactive ZITHROMAX Z-REYNA 250 MG ORAL TABLET 2 today, then 1 daily for 4 d ays ZITHROMAX Z-REYNA 250 MG ORAL TABLET 417287 AZITHROMYCIN Inactive ZITHROMAX 250 MG ORAL TABLET 2 po today, then 1 po q days 2-5 20 14/03/21 ZITHROMAX 250 MG ORAL TABLET 815016 AZITHROMYCIN [place] [facility] ZITHROMAX Z-REYNA 250 MG ORAL TABLET 2 today, then 1 daily for 4 d ays ZITHROMAX Z-REYNA 250 MG ORAL TABLET 257397 AZITHROMYCIN Inactive CEFDINIR 300 MG ORAL CAPSULE 1 po BID x 10 days 06/21 CEFDINIR 300 MG ORAL CAPSULE 586290 CEFDINIR Inactive ZITHROMAX 250 MG ORAL TABLET 2 po today, then 1 po q days 2-5 20 13/08/10 ZITHROMAX 250 MG ORAL TABLET 603607 AZITHROMYCIN [place] [facility] LEVAQUIN 500 MG ORAL TABLET 1 tablet by mouth daily 13/09/24 LEVAQUIN 500 MG ORAL TABLET 101710 LEVOFLOXACIN Inactive SINGULAIR 10 MG ORAL TABLET 1 po qday for allergies 20 14/01/12 SINGULAIR 10 MG ORAL TABLET 20010504 MONTELUKAST SODIUM Inactive AMOXICILLIN 500 MG ORAL CAPSULE 2 po BID x 10 days 201 09/29/08 AMOXICILLIN 500 MG ORAL CAPSULE 424329 AMOXICILLIN Inactive PREDNISONE 20 MG ORAL TABLET 2 tabs daily for 3 days, 1 tab daily for 3 days, 1/2 tab daily for 2 days PREDNISONE 20 MG ORAL T ABLET 799854 PREDNISONE Inactive ZITHROMAX Z-REYNA 250 MG ORAL TABLET 2 today, then 1 daily for 4 d ays ZITHROMAX Z-REYNA 250 MG ORAL TABLET 980505 AZITHROMYCIN Inactive PREDNISONE 20 MG ORAL TABLET 2 tabs daily for 3 days, 1 tab daily for 3 days, 1/2 tab daily for 2 days PREDNISONE 20 MG ORAL T ABLET 998932 PREDNISONE Inactive ZITHROMAX 250 MG ORAL TABLET 2 po today, then 1 po q days 2-5 20 14/09/04 ZITHROMAX 250 MG ORAL TABLET 066435 AZITHROMYCIN [place] [facility] AMOXICILLIN 500 MG ORAL CAPSULE 1 cap by mouth three times a day AMOXICILLIN 500 MG ORAL CAPSULE 143860 AMOXICILLIN Inactive TERBINAFINE HCL 250 MG ORAL TABLET 1 qDay for nail fungus 7 TERBINAFINE HCL 250 MG ORAL TABLET 007994 TERBINAFINE HCL Inact nael AUGMENTIN 875-125 MG ORAL TABLET 1 po BID x 10 days 16/03/22 AUGMENTIN 875-125 MG ORAL TABLET 618200 AMOXICILLIN-POT CLAVULANATE Inactive PREDNISONE 20 MG ORAL TABLET 2 po qd x 5 days PREDNISONE 20 MG ORAL TABLET 754711 PREDNISONE Inactive AZITHROMYCIN 250 MG ORAL TABLET 2 po qd x 1 day, then 1 po q d x 4 days AZITHROMYCIN 250 MG ORAL TABLET 767455 AZITHROMY GIOVANNI Inactive PREDNISONE 50 MG ORAL TABLET Take 50 mg dialy for 6 day s 7 PREDNISONE 50 MG ORAL TABLET 193955 PREDNISONE Inactive AUGMENTIN 875-125 MG ORAL TABLET 1 po BID x 10 days 18/04/16 AUGMENTIN 875-125 MG ORAL TABLET 838229 AMOXICILLIN-POT CLAVULANATE Inactive DOXYCYCLINE HYCLATE 100 MG ORAL CAPSULE 1 cap by mouth twice latasha ly DOXYCYCLINE HYCLATE 100 MG ORAL CAPSULE 6715690 DOXYCYCL INE HYCLATE Inactive PREDNISONE 20 MG ORAL TABLET Take 2 tabs day 1 and 2 and 1 t ab days 3 and 4 PREDNISONE 20 MG ORAL TABLET 858461 PREDNISONE Inactive Vital Signs Date Name Value [...] - Chem istry sodium, serum 139 mmol/L 242-571 0968/10/12 potassium, serum 3.8 mmol/L 3.5-5.2 chloride, serum 102 mmol/L 98-107 carbon dioxide, venous blood 29.4 mmol/L 21.0-32 .0 blood glucose 103 mg/dL 65-95 calcium, serum 8.8 mg/dL 8.5-10.1 urea nitrogen, blood 10 mg/dL 7-18 creatinine, serum 0.97 mg/dL 0.60-1.30 Estimated Glomerular Filtration Rate (calc) 62 (?) mL/min/1.73m2 = OR > 60 mL/min Encounters Code Encounter Date Provider Facility CPT-10095 [id number] Vst-Est Level IV 08:41:[address] Carlton Hu MD [facility] CPT-06705 Level 3 Est. Patient 09:46:49 LINEWORKER David lion [facility]-96217 [id number] Vst-Est Level III 11:12:16 CDT Yanet Bess DO [facility] CPT-27713 Level 3 Est. Patient 11:34:49 LINEWORKER Perez Mora MD [facility] CPT-55942 Level 4 Est. Patient 09:51:32 LINEWORKER Carlton rich MD [facility] CPT-34975 Level 3 Est. Patient 10:26:00 LINEWORKER Elise stephenson [facility] CPT-34024 Level 3 Est. Patient 13:35:41 LINEWORKER Carlton rich MD [facility]-55801 Level 3 Est. Patient 10:03:52 LINEWORKER Carlton rich MD [facility]-66110 Level 3 Est. Patient 12:17:50 CDT Hugo Restrepo MD [facility]-59166 Level 3 Est. Patient 13:42:38 CDT Elise Are [facility] CPT-09549 Level 3 Est. Patient 13:23:51 CDT Dyia cobian [facility] CPT-90666 Level 3 Est. Patient 14:22:19 LINEWORKER Diya cobian [facility] CPT-51622 Level 3 Est. Patient 10:11:46 CDT Carlton rich MD [facility] CPT-42578 Level 3 Est. Patient 17:29:43 CDT Elise Are ll [facility] CPT-52689 Level 3 Est. Patient 11:58:06 CDT Elise Are [facility] CPT-77171 Level 4 Est. Patient 14:36:51 CDT Carlton rich MD [facility] CPT-68785 Level 3 Est. Patient 18:16:00 LINEWORKER Blaine HERNANDEZ [facility] CPT-82408 Level 3 Est. Patient 09:45:49 LINEWORKER Carlton rich MD [facility] CPT-98580 Level 3 Est. Patient 13:19:20 CDT Carlton rich MD [facility] CPT-33641 Level 3 Est. Patient 13:06:43 CDT Ridge tam DO [facility] CPT-67684 Level 3 Est. Patient 10:03:07 CDT Perez Mora MD [facility] CPT-67448 Level 3 Est. Patient 19:50:35 LINEWORKER Carlton rich MD [facility] CPT-13969 Level 4 Est. Patient 18:05:01 LINEWORKER Carlton rich MD [facility] CPT-81608 Level 3 Est. Patient 10:45:55 LINEWORKER Hugo Restrepo MD [facility] CPT-56414 Level 3 Est. Patient 14:12:49 CDT Griffin HERNANDEZ [facility] CPT-85175 Level 3 Est. Patient 17:37:24 CDT Carlton rich MD [facility] CPT-83044 Level 3 Est. Patient 16:51:54 CDT Carlton rich MD [facility] CPT-88366 Level 3 Est. Patient 12:18:11 CDT Hugo Restrepo MD [facility] CPT-80869 Level 3 Est. Patient 11:30:25 CDT Marcy crisostomo MD PhD [facility] CPT-76481 Level 3 Est. Patient 12:00:47 LINEWORKER Carlton rich MD [facility] CPT-66184 Level 3 Est. Patient 16:31:06 LINEWORKER Carlton rich MD [facility] CPT-88091 Level 3 Est. Patient 16:23:24 LINEWORKER Ridge tam DO [facility] CPT-58248 Level 3 Est. Patient 12:34:12 CDT Carlton rich MD [facility] CPT-84378 Level 2 Est. Patient 15:43:33 CDT Robi armstrong MD [facility] CPT-65802 Level 4 Est. Patient 14:04:44 CDT Carlton rich MD [facility] CPT-14419 Level 3 Est. Patient 05:47:59 CDT Ridge tam [facility] CPT-44722 Level 3 Est. Patient 13:12:53 LINEWORKER Carlton rich MD [facility] CPT-03840 Level 3 Est. Patient 14:26:53 CDT Hugo [...] CPT-J1100 Decadron 6mg (Dexamethasone) 14:32:13 CDT 2 CPT-93949 Hip bilat min 2V w AP pelvis 13:16:20 CDT 2 CPT-39534 Pelvis only 13:07:33 CDT CPT-30898 Spec Collection and Handling Fee 11:25:12 C DT CPT-47395 Fluzone Quadrivalent Intramuscular Suspe nsion 0.5 ML 14:31:55 CDT CPT-13345 Abx/Therapy Injection 13:28:47 LINEWORKER CPT-J2930 Solu Medrol 125 mg (Methyl Prednisolone Sodium Succinate) 12:00:47 LINEWORKER CPT-79607 Venipuncture Draw Fee 11:33:31 CDT CPT-30733 EKG Trac and Interp 11:21:09 CDT CPT-78095 Chest 2V Frontal and Lat 11:21:09 CDT 12/15 CPT-23015 Venipuncture Draw Fee 08:02:34 CDT CPT-75407 Chest 2V Frontal and Lat 05:47:59 CDT 06/05
--- OUTSIDE RECORDS SUMMARY | 2019-10-08 09:11 | XMS REPORT | Clinical Summary ---
Author Author Caitlin, Juliana Martinez Organization [facility] Address Unknown Phone Unavailable Allergies, [...] by mouth daily for depression DULOXETINE HCL [id number] No Longer Active Carlton Hu MD Active CYMBALTA 60 MG ORAL CAPSULE DELAYED RELEASE PARTICLES 1 cap by mouth daily for mood and pain DULOXETINE HCL 77793286342 Active Carlton Hu MD Active TUSSIONEX PENNKINETIC ER 10-8 MG/5ML ORAL SUSPENSION E XTENDED RELEASE 5ml po q12hr PRN Cough HYDROCOD POLST-CHLORPHEN POLST 05869058129 Active David Marianne FLOOR SURFACER Active PREDNISONE 20 MG ORAL TABLET Take 2 tabs day 1 and 2 and 1 t ab days 3 and 4 PREDNISONE 50266489119 No Longer Active David Marianne FLOOR SURFACER Active DOXYCYCLINE HYCLATE 100 MG ORAL CAPSULE 1 cap by mouth twice latasha ly DOXYCYCLINE HYCLATE 48992371502 No Longer Active David Lopes FLOOR SURFACER Active TOPAMAX 100 MG ORAL TABLET Take 1 tablet po bid TOPIRAMATE 28821852245 No Longer Active David Marianne FLOOR SURFACER Active TUSSIONEX PENNKINETIC ER 10-8 MG/5ML ORAL SUSPENSION E XTENDED RELEASE 5ml po q12hr PRN Cough HYDROCOD POLST-CHLORPHEN POLST 5 5089031369 No Longer Active David Marianne FLOOR SURFACER Active AUGMENTIN 875-125 MG ORAL TABLET 1 po BID x 10 days 18/04/16 AMOXICILLIN-POT CLAVULANATE 19564295068 No Longer Active David Lopes FLOOR SURFACER Active PREDNISONE 50 MG ORAL TABLET Take 50 mg dialy for 6 day s 7 PREDNISONE 57447082420 No Longer Active David Marianne FLOOR SURFACER Active TUSSIONEX PENNKINETIC ER 10-8 MG/5ML ORAL SUSPENSION E XTENDED RELEASE 5ml po q12hr PRN Cough HYDROCOD POLST-CHLORPHEN POLST 5 6685747608 No Longer Active Cherelle Torres RN Active PREDNISONE 20 MG ORAL TABLET two tabs by mouth today, then one tab by mouth days two and three and four PREDNISONE 29280702707 No Lo nger Active Cherelle Torres RN Active AZITHROMYCIN 250 MG ORAL TABLET 2 po qd x 1 day, then 1 po q d x 4 days AZITHROMYCIN 27468457789 No Longer Active Ridge Bess DO Active PREDNISONE 20 MG ORAL TABLET 2 po qd x 5 days P REDNISONE 76890486476 No Longer Active Perez Mora MD Active PROAIR HFA 108 (90 BASE) MCG/ACT INHALATION AEROSOL SO LUTION 2 puffs four times a day as needed ALBUTEROL SULFATE 68275058870 No Long er Active Becky AGUILARA Active ASPIRIN 81 MG ORAL TABLET 1 po qd ASPIRIN 53989000348 Active Carlton Hu MD Active PREDNISONE 20 MG ORAL TABLET 1 tab twice daily for 3 d ay, then one daily for three days PREDNISONE 06506028525 No Longer Active Carlton Hu MD Active AUGMENTIN 875-125 MG ORAL TABLET 1 po BID x 10 days 16/03/22 AMOXICILLIN-POT CLAVULANATE 98731405262 No Longer Active Elise Garcia APRN Active TERBINAFINE HCL 250 MG ORAL TABLET 1 qDay for nail fungus 7 TERBINAFINE HCL 91190784502 No Longer Active Carlton Hu MD A ctive AMOXICILLIN 500 MG ORAL CAPSULE 1 cap by mouth three times a day AMOXICILLIN 22020371359 No Longer Active Carlton Hu MD Active ELMIRON 100 MG ORAL CAPSULE 2 tablets in the am and 1 tablet at hs PENTOSAN POLYSULFATE SODIUM 31356629067 No Longer Active Robert jade Hu MD Active MUCINEX D 60-600 MG ORAL TABLET EXTENDED RELEASE 12 HOUR 1 t ab po q am PSEUDOEPHEDRINE-GUAIFENESIN 42341100078 No Longer Act nael Carlton Hu MD Active MUCINEX DM MAXIMUM STRENGTH 60-1200 MG ORAL TABLET EXT ENDED RELEASE 12 HOUR 1 tab po q am DEXTROMETHORPHAN-GUAIFENESIN 62663391702 No Longer Active Carlton Hu MD Active TUSSIONEX PENNKINETIC ER 10-8 MG/5ML ORAL SUSPENSION E XTENDED RELEASE 5ml po q12hr PRN Cough HYDROCOD POLST-CHLORPHEN POLST 5 6504850274 No Longer Active Carlton Hu MD Active POTASSIUM CHLORIDE ER 20 MEQ ORAL TABLET EXTENDED RELE ASE Take 1 by mouth 4 times daily for 7 days POTASSIUM CHLORIDE 42701652135 No Longer Active Carlton uH MD Active ZITHROMAX 250 MG ORAL TABLET 2 po today, then 1 po q days 2-5 20 14/09/04 AZITHROMYCIN 27472153503 No Longer Active Elise Garcia APRN Active TUSSIONEX PENNKINETIC ER 10-8 MG/5ML ORAL SUSPENSION E XTENDED RELEASE 5 ml twice a day as needed for cough HYDROCOD POLST-CHLORPH EN POLST 00351116933 No Longer Active Elise Garcia APRN Active MONTELUKAST SODIUM 10 MG ORAL TABLET 1 po daily for Allergy MONTELUKAST SODIUM 29565110707 Active Carlton Hu MD Ac tive TUSSIONEX PENNKINETIC ER 10-8 MG/5ML ORAL SUSPENSION E XTENDED RELEASE 5ml po q12hr PRN Cough HYDROCOD POLST-CHLORPHEN POLST 5 0956339308 No Longer Active Hugo Restrepo MD Active GABAPENTIN 100 MG ORAL CAPSULE 1 po BID for fibromyalgia GABAPENTIN 06977769666 Active Carlton Hu MD Active LYRICA 100 MG ORAL CAPSULE Take 1 tab po BID for fibromyalgia 20 11/08/21 PREGABALIN 42996747375 No Longer Active Eilse Garcia APRN A ctive PREDNISONE 20 MG ORAL TABLET 2 tabs daily for 3 days, 1 tab daily for 3 days, 1/2 tab daily for 2 days PREDNISONE 42506633700 No Longer Active Astridina Cesarl FLOOR SURFACER Active TUSSIONEX PENNKINETIC ER 10-8 MG/5ML ORAL SUSPENSION E XTENDED RELEASE 5 mL PO q 12 hrs PRN cough HYDROCOD POLST-CHLORPHEN POLST 528004 28235 No Longer Active Jillina Frazell FLOOR SURFACER Active FLUTICASONE PROPIONATE 50 MCG/ACT NASAL SUSPENSION 2 s prays each nostril daily until bottle is empty FLUTICASONE PROPIONATE 726265767 99 No Longer Active Jillina Frazell FLOOR SURFACER Active ASMANEX 60 METERED DOSES 220 MCG/INH INHALATION AEROSO L POWDER BREATH ACTIVATED 1 puff bid with rinse after MOMETASONE FUROATE 3873966 4102 No Longer Active Jillina Frazell FLOOR SURFACER Active ZITHROMAX Z-REYNA 250 MG ORAL TABLET 2 today, then 1 daily for 4 d ays AZITHROMYCIN 21356395016 No Longer Active Elise Garcia APRN Active TUSSIONEX PENNKINETIC ER 10-8 MG/5ML ORAL SUSPENSION E XTENDED RELEASE 5ml po q12hr PRN Cough HYDROCOD POLST-CHLORPHEN POLST 5 7677365686 No Longer Active Elise Garcia APRN Active PREDNISONE 20 MG ORAL TABLET 2 tabs daily for 3 days, 1 tab daily for 3 days, 1/2 tab daily for 2 days PREDNISONE 27479564153 No Longer Active Diya De Guzman APRN Active AMOXICILLIN 500 MG ORAL CAPSULE 2 po BID x 10 days 201 09/29/08 AMOXICILLIN 04687343796 No Longer Active Jiriley De Guzman APRN Act nael SINGULAIR 10 MG ORAL TABLET 1 po qday for allergies 20 14/01/12 MONTELUKAST SODIUM 36352296723 No Longer Active Carlton Hu MD Active LEVAQUIN 500 MG ORAL TABLET 1 tablet by mouth daily 20 13/09/24 LEVOFLOXACIN 39648599214 No Longer Active Carlton Hu MD Acti ve FLUTICASONE PROPIONATE 50 MCG/ACT NASAL SUSPENSION 2 s prays each nostril daily for 2 weeks, then 1 spray each nostril daily. FLUTICASONE PROPIONATE 67616826395 Active Carlton Hu MD Active ZITHROMAX 250 MG ORAL TABLET 2 po today, then 1 po q days 2-5 20 13/08/10 AZITHROMYCIN 91035895465 No Longer Active Elise Garcia APRN Active XANAX 0.5 MG ORAL TABLET one tablet by mouth daily prn anxiety 2015 ALPRAZOLAM 33921767126 Active ALFREDO Holly Active CEFDINIR 300 MG ORAL CAPSULE 1 po BID x 10 days CEFDINIR 44995578379 No Longer Active Carlton Hu MD Active ZOCOR 40 MG ORAL TABLET 1 tab by mouth daily SI MVASTATIN 23848582118 No Longer Active Carlton Hu MD Active CYCLOBENZAPRINE HCL 10 MG ORAL TABLET 1 tablet by mouth BID prn had pain CYCLOBENZAPRINE HCL 30760367495 No Longer Active Jayden Hu MD Active LEVOFLOXACIN 500 MG ORAL TABLET 1 tab PO daily x 10 days LEVOFLOXACIN 39613885007 No Longer Active Carlton Hu MD Acti ve PREDNISONE 20 MG ORAL TABLET 3 tab PO qd x 2d, 2 tab P O qd x 2d, 1 tab PO qd x 2d, 1/2 tab PO qd x 2d PREDNISONE 91862189903 No Lo nger Active Carlton Hu MD Active FLUTICASONE PROPIONATE 50 MCG/ACT NASAL SUSPENSION 1 t o 2 sprays each nostril daily FLUTICASONE PROPIONATE 50266043851 No Longer Ac tive Blaine HERNANDEZ Active CHERATUSSIN AC 100-10 MG/5ML ORAL SYRUP 1 tsp by mouth every 4 hours as needed for cough GUAIFENESIN-CODEINE 74783000297 No Longe r Active Blaine HERNANDEZ Active PROMETHAZINE-CODEINE 6.25-10 MG/5ML ORAL SYRUP 1 tsp b y mouth every 6 hours if needed for cough PROMETHAZINE-CODEINE 66819184083 No Longer Active Blaine HERNANDEZ Active CHERATUSSIN AC 100-10 MG/5ML ORAL SYRUP 1 tsp by mouth every 4 hours as needed for cough GUAIFENESIN-CODEINE 12830604062 No Longe r Active Blaine HERNANDEZ Active ZITHROMAX Z-REYNA 250 MG ORAL TABLET 2 today, then 1 daily for 4 d ays AZITHROMYCIN 98851044112 No Longer Active Columba Raida Act nael ZITHROMAX 250 MG ORAL TABLET 2 po today, then 1 po q days 2-5 20 14/03/21 AZITHROMYCIN 53620418885 No Longer Active Carlton Hu MD Active ZITHROMAX Z-REYNA 250 MG ORAL TABLET 2 today, then 1 daily for 4 d ays AZITHROMYCIN 86402064779 No Longer Active Columba Raida Act nael AUGMENTIN 875-125 MG ORAL TABLET 1 po BID x 10 days 13/01/20 AMOXICILLIN-POT CLAVULANATE 20378725449 No Longer Active Diya De Guzman APRN Active ZITHROMAX 250 MG ORAL TABLET 2 po today, then 1 po q days 2-5 12/08/14 AZITHROMYCIN 07359050026 No Longer Active Carlton Hu MD Active TRAMADOL HCL 50 MG ORAL TABLET 1 po tid with ES Tylenol TRAMADOL HCL 32808647260 Active ALFREDO Holly Active PREMARIN 0.625 MG ORAL TABLET TAKE 1 TAB BY MOUTH DAILY ESTROGENS CONJUGATED 23056989080 No Longer Active Ridge Bess DO A ctive CYMBALTA 30 MG ORAL CAPSULE DELAYED RELEASE PARTICLES 1 cap by mouth daily DULOXETINE HCL 39374945638 No Longer Active Ridge tam DO Active AMOXICILLIN 500 MG ORAL CAPSULE 1 tab by mouth 3 times daily x 10 days AMOXICILLIN 97544448965 No Longer Active Carlton bustamante MD Active AMOXICILLIN 500 MG ORAL CAPSULE 1 tab by mouth 3 times daily x 10 days AMOXICILLIN 78044217216 No Longer Active Carlton bustamante MD Active PROMETHAZINE-CODEINE 6.25-10 MG/5ML ORAL SYRUP 1 tsp b y mouth every 8 hours prn cough PROMETHAZINE-CODEINE 29824397801 No Longer Acti ve Carlton Hu MD Active MEDROL 4 MG ORAL TABLET THERAPY PACK 6 pills x 1 day, then 5 pills x 1 day then 4 pills x 1 day, then 3 pills x 1 day, then 2 pills x 1 day, then 1 pill x 1 day, then stop METHYLPREDNISOLONE 32101304506 No Long er Active Perez Mora MD Active AZITHROMYCIN 250 MG ORAL TABLET 2 po qd x 1 day, then 1 po q d x 4 days AZITHROMYCIN 53828438203 No Longer Active Perez Ambriz MD Active SYMBICORT 160-4.5 MCG/ACT INHALATION AEROSOL 2 puffs bid wit h rinse after BUDESONIDE-FORMOTEROL FUMARATE 77702667934 N o Longer Active Perez Mora MD Active LYRICA 75 MG ORAL CAPSULE TAKE 1 CAPSULE BY MOUTH TWICE DAILY PREGABALIN 28948709231 No Longer Active Carlton Hu MD Acti ve TOPAMAX 25 MG ORAL TABLET 1 qHS x 1 week, then 1 BID x 1 week, then 1 qAM and 2 qHS x 1 week, then 2 BID (migraine prevention) T OPIRAMATE 85761637635 No Longer Active Jerica FUENTES Active TOPAMAX 50 MG ORAL TABLET take 1 tab po BID for migraines. 07/02 TOPIRAMATE 05664286928 No Longer Active Jerica FUENTES Active TRIAMCINOLONE ACETONIDE 0.1 % EXTERNAL CREAM apply three roger es daily prn rash TRIAMCINOLONE ACETONIDE 41132379525 No Longer Active Carlton Hu MD Active PAXIL 40 MG ORAL TABLET take 1 tab po qday for depression 0 PAROXETINE HCL 94015945309 Active Carlton Hu MD Active CHERATUSSIN AC 100-10 MG/5ML ORAL SYRUP 5ml po q6hr PRN Cough 20 13/04/14 GUAIFENESIN-CODEINE 46170701016 No Longer Active Carlton Hu MD Active MEDROL 4 MG ORAL TABLET THERAPY PACK 6 tabs on day 1, 5 tabs on day 2, 4 tabs on day 3, 3 tabs on day 4, 2 tabs on day 5, 1 tab on day 6 2013 METHYLPREDNISOLONE 66344319628 No Longer Active Perez Mora MD Active AZITHROMYCIN 250 MG ORAL TABLET 2 po qd x 1 day, then 1 po q d x 4 days AZITHROMYCIN 70837682707 No Longer Active Perez Ambriz MD Active PROPRANOLOL HCL 60 MG ORAL TABLET 1 PO Q D PROPRANOLOL HCL 31274411763 No Longer Active Perez Mora MD Activ e CHERATUSSIN AC 100-10 MG/5ML ORAL SYRUP take one tsp po Q 6h ours prn cough GUAIFENESIN-CODEINE 88481399044 No Longer Active Zia Mora MD Active AUGMENTIN 875-125 MG ORAL TABLET 1 tab by mouth twice daily with food AMOXICILLIN-POT CLAVULANATE 71986379965 No Longer Act nael Mora MD Active CHERATUSSIN AC 100-10 MG/5ML ORAL SYRUP 1 tsp by mouth every 4 hours as needed for cough GUAIFENESIN-CODEINE 92486149803 No Longe r Active Hugo Restrepo MD Active ACETAMINOPHEN-CODEINE #3 300-30 MG ORAL TABLET 1 PO Q 4-6 HRS AR N PAIN ACETAMINOPHEN-CODEINE 49460354348 No Longer Active Hugo Restrepo MD Active LEVAQUIN 500 MG ORAL TABLET take one po QD LEVO FLOXACIN 27732108282 No Longer Active Griffin HERNANDEZ Active PREDNISONE 20 MG ORAL TABLET Take 3 tabs daily for 3 d ays, 2 tabs daily for 3 days, 1 tab daily for 3 days, 1/2 tab daily for 3 days 11/07 PREDNISONE 76479101371 No Longer Active Carlton Hu MD Acti ve AVELOX 400 MG ORAL TABLET 1 tab by mouth daily MOXIFLOXACIN HCL 80093001047 No Longer Active Carlton Hu MD Active CHERATUSSIN AC 100-10 MG/5ML ORAL SYRUP 1 tsp by mouth every 4 hours as needed for cough GUAIFENESIN-CODEINE 68094365461 No Longe r Active Hugo Restrepo MD Active AVELOX 400 MG ORAL TABLET 1 tab by mouth daily MOXIFLOXACIN HCL 77073545424 No Longer Active Marcy De La Rosa MD PhD Active TERBINAFINE HCL 250 MG ORAL TABLET 1 qDay T ERBINAFINE HCL 54649880030 No Longer Active Marcy De La Rosa MD PhD Active CHERATUSSIN AC 100-10 MG/5ML ORAL SYRUP 1 tsp by mouth every 4 hours as needed for cough GUAIFENESIN-CODEINE 73842017751 No Longe r Active Marcy De La Rosa MD PhD Active AVELOX 400 MG ORAL TABLET 1 tab by mouth daily MOXIFLOXACIN HCL 02010534806 No Longer Active Marcy De La Rosa MD PhD Active HYDROCODONE-ACETAMINOPHEN 5-325 MG ORAL TABLET 1 po q 6hr PRN co ugh HYDROCODONE-ACETAMINOPHEN 92300506777 No Longer Active Marcy De La Rosa MD PhD Active PREDNISONE 20 MG ORAL TABLET 2 tabs daily for 3 days, 1 tab daily for 3 days, 1/2 tab daily for 2 days PREDNISONE 41591757491 No Longer Active Carlton Hu MD Active CEFDINIR 300 MG ORAL CAPSULE by mouth twice a day 2011 CEFDINIR 98193634531 No Longer Active Carlton Hu MD Acti ve HYDROCHLOROTHIAZIDE 25 MG ORAL TABLET 1 TAB PO DAILY HYDROCHLOROTHIAZIDE 72106831752 Active Carlton Hu MD A ctive ACETAMINOPHEN-CODEINE #3 300-30 MG ORAL TABLET 1 tablet po q 4-6 hrs prn pain ACETAMINOPHEN-CODEINE 49572320258 No Longer Active Ridge Bess DO Active ZITHROMAX 250 MG ORAL TABLET 2 po today, then 1 po q days 2-5 20 03/07/07 AZITHROMYCIN 35717024613 No Longer Active Carlton Hu MD Active CHERATUSSIN AC 100-10 MG/5ML ORAL SYRUP take 1 tsp po q4-6 h ours prn cough GUAIFENESIN-CODEINE 74418115926 No Longer Active Jayden Hu MD Active ACETAMINOPHEN-CODEINE #3 300-30 MG ORAL TABLET 1 PO Q 4-6 HR PRN PAIN ACETAMINOPHEN-CODEINE 24515688686 No Longer Active Arnol Hu MD Active LORTAB 7.5-500 MG/15ML ORAL ELIXIR 7.5 ml po q 4 hour prn cough HYDROCODONE-ACETAMINOPHEN 36134137908 No Longer Active Carlton Hu MD Active PREDNISONE 20 MG ORAL TABLET 1 po bid 3 days, then 1 po q day 3 days PREDNISONE 83235804616 No Longer Active Carlton Hu MD Active CEFDINIR 300 MG ORAL CAPSULE by mouth twice a day 2011 CEFDINIR 16882430065 No Longer Active Carlton Hu MD Acti ve CEFDINIR 300 MG ORAL CAPSULE by mouth twice a day 2010 CEFDINIR 91728987164 No Longer Active Carlton Hu MD Acti ve CEFDINIR 300 MG ORAL CAPSULE by mouth twice a day 2010 CEFDINIR 48222344222 No Longer Active Carlton Hu MD Acti ve TESSALON PERLES 100 MG ORAL CAPSULE 1 tablet by mouth 3 times daily as needed for cough BENZONATATE 20858184503 No Longer Active Carlton Hu MD Active CEFDINIR 300 MG ORAL CAPSULE by mouth twice a day 2010 CEFDINIR 97941706485 No Longer Active Carlton Hu MD Acti ve ZITHROMAX Z-REYNA 250 MG ORAL TABLET 2 today, then 1 daily for 4 d ays AZITHROMYCIN 97020888008 No Longer Active Hugo Restrepo MD Active TESSALON PERLES 100 MG ORAL CAPSULE 1 tablet by mouth 3 times daily as needed for cough TESSALON PERLES 100 MG ORAL CAPSULE 37238 7 BENZONATATE Inactive PREDNISONE 20 MG ORAL TABLET 1 po bid 3 days, then 1 po q day 3 days PREDNISONE 20 MG ORAL TABLET 630430 PREDNISONE [place] ctive LORTAB 7.5-500 MG/15ML ORAL ELIXIR 7.5 [...] cough CHERATUSSIN AC 100-10 MG/5ML ORAL SYRUP 440387 GUAIFENESIN-CODEINE Inactive ACETAMINOPHEN-CODEINE #3 300-30 MG ORAL TABLET 1 tablet po q 4-6 hrs prn pain ACETAMINOPHEN-CODEINE #3 300-30 MG ORAL TABLET ACETAMINOPHEN-CODEINE Inactive HYDROCODONE-ACETAMINOPHEN 5-325 MG ORAL TABLET 1 po q 6hr PRN co ugh HYDROCODONE-ACETAMINOPHEN 5-325 MG ORAL TABLET 292043 HYDROCODONE-ACETAMINOPHEN Inactive AVELOX 400 MG ORAL TABLET 1 tab by mouth daily AVELOX 400 MG ORAL TABLET 022039 MOXIFLOXACIN HCL Inactive CHERATUSSIN AC 100-10 MG/5ML ORAL SYRUP 1 tsp by mouth every 4 hours as needed for cough CHERATUSSIN AC 100-10 MG/5ML ORAL SYRUP 9 40633 GUAIFENESIN-CODEINE Inactive TERBINAFINE HCL 250 MG ORAL TABLET 1 qDay 07/08 TERBINAFINE HCL 250 MG ORAL TABLET 758902 TERBINAFINE HCL Inactive CHERATUSSIN AC 100-10 MG/5ML ORAL SYRUP 1 tsp by mouth every 4 hours as needed for cough CHERATUSSIN AC 100-10 MG/5ML ORAL SYRUP 9 08820 GUAIFENESIN-CODEINE Inactive ACETAMINOPHEN-CODEINE #3 300-30 MG ORAL TABLET 1 PO Q 4-6 HRS AR N PAIN ACETAMINOPHEN-CODEINE #3 300-30 MG ORAL TABLET ACETAMINOPHEN-CODEINE Inactive CHERATUSSIN AC 100-10 MG/5ML ORAL SYRUP 1 tsp by mouth every 4 hours as needed for cough CHERATUSSIN AC 100-10 MG/5ML ORAL SYRUP 9 60835 GUAIFENESIN-CODEINE Inactive AUGMENTIN 875-125 MG ORAL TABLET 1 tab by mouth twice daily with food AUGMENTIN 875-125 MG ORAL TABLET 843131 AMOXICIL MADELINE-POT CLAVULANATE Inactive CHERATUSSIN AC 100-10 MG/5ML ORAL SYRUP take one tsp po Q 6h ours prn cough CHERATUSSIN AC 100-10 MG/5ML ORAL SYRUP 759069 GUAIFENESIN-CODEINE Inactive PROPRANOLOL HCL 60 MG ORAL TABLET 1 PO Q D PROPRANOLOL HCL 60 MG ORAL TABLET 343737 PROPRANOLOL HCL Inactive TOPAMAX 50 MG ORAL TABLET take 1 tab po BID for migraines. 07/02 TOPAMAX 50 MG ORAL TABLET 893924 TOPIRAMATE Inacti ve TOPAMAX 25 MG ORAL TABLET 1 qHS x 1 week, then 1 BID x 1 week, then 1 qAM and 2 qHS x 1 week, then 2 BID (migraine prevention) TOPAMAX 25 MG ORAL TABLET 590278 TOPIRAMATE Inactive LYRICA 75 MG ORAL CAPSULE TAKE 1 CAPSULE BY MOUTH TWICE DAILY LYRICA 75 MG ORAL CAPSULE PREGABALIN Inactive SYMBICORT 160-4.5 MCG/ACT INHALATION AEROSOL 2 puffs bid wit h rinse after SYMBICORT 160-4.5 MCG/ACT INHALATION AEROSOL BUDESONIDE- FORMOTEROL FUMARATE Inactive PROMETHAZINE-CODEINE 6.25-10 MG/5ML ORAL SYRUP 1 tsp b y mouth every 8 hours prn cough PROMETHAZINE-CODEINE 6.25-10 MG/ 5ML ORAL SYRUP 849365 PROMETHAZINE-CODEINE Inactive CYMBALTA 30 MG ORAL CAPSULE DELAYED RELEASE PARTICLES 1 cap by mouth daily CYMBALTA 30 MG ORAL CAPSULE DELAYED RELE ASE PARTICLES 916929 DULOXETINE HCL Inactive PREMARIN 0.625 MG ORAL TABLET TAKE 1 TAB BY MOUTH DAILY PREMARIN 0.625 MG ORAL TABLET ESTROGENS CONJUGATED Inactive CHERATUSSIN AC 100-10 MG/5ML ORAL SYRUP 1 tsp by mouth every 4 hours as needed for cough CHERATUSSIN AC 100-10 MG/5ML ORAL SYRUP 9 14048 GUAIFENESIN-CODEINE Inactive PROMETHAZINE-CODEINE 6.25-10 MG/5ML ORAL SYRUP 1 tsp b y mouth every 6 hours if needed for cough PROMETHAZINE-CODEINE 6.25-10 MG/5ML ORAL SYRUP 257951 PROMETHAZINE-CODEINE Inactive CHERATUSSIN AC 100-10 MG/5ML ORAL SYRUP 1 tsp by mouth every 4 hours as needed for cough CHERATUSSIN AC 100-10 MG/5ML ORAL SYRUP 9 57851 GUAIFENESIN-CODEINE Inactive FLUTICASONE PROPIONATE 50 MCG/ACT NASAL SUSPENSION 1 t o 2 sprays each nostril daily FLUTICASONE PROPIONATE 50 MCG/AC T NASAL SUSPENSION 4584250 FLUTICASONE PROPIONATE Inactive PREDNISONE 20 MG ORAL TABLET 3 tab PO qd x 2d, 2 tab P O qd x 2d, 1 tab PO qd x 2d, 1/2 tab PO qd x 2d PREDNISONE 20 MG ORAL TAB LET 989823 PREDNISONE Inactive LEVOFLOXACIN 500 MG ORAL TABLET 1 tab PO daily x 10 days LEVOFLOXACIN 500 MG ORAL TABLET 256723 LEVOFLOXACIN Inactive CYCLOBENZAPRINE HCL 10 MG ORAL TABLET 1 tablet by mouth BID prn had pain CYCLOBENZAPRINE HCL 10 MG ORAL TABLET 431766 CYCLOBENZAPRINE HCL Inactive ZOCOR 40 MG ORAL TABLET 1 tab by mouth daily 4 ZOCOR 40 MG ORAL TABLET 998106 SIMVASTATIN Inactive TUSSIONEX PENNKINETIC ER 10-8 MG/5ML [...] FLUTICASONE PROPIO EFE 50 MCG/ACT NASAL SUSPENSION 9959286 FLUTICASONE PROPIONATE Inactive TUSSIONEX PENNKINETIC ER 10-8 [...] three days PREDNISONE 20 MG ORAL TABLET 356343 PREDNIS ONE Inactive PROAIR HFA 108 (90 BASE) MCG/ACT INHALATION AEROSOL SO LUTION 2 puffs four times a day as needed PROAIR HFA 108 (90 B ASE) MCG/ACT INHALATION AEROSOL SOLUTION ALBUTEROL SULFATE Inactive PREDNISONE 20 MG ORAL TABLET two tabs by mouth today, then one tab by mouth days two and three and four PREDNISONE 20 MG ORAL TAB LET 765642 PREDNISONE Inactive TUSSIONEX PENNKINETIC ER 10-8 MG/5ML [...] bid 04/20 TOPAMAX 100 MG ORAL TABLET 026819 TOPIRAMATE Inactive CYMBALTA 30 MG ORAL CAPSULE DELAYED RELEASE PARTICLES 1 cap by mouth daily for depression CYMBALTA 30 MG ORAL CAPSULE DELAYED RELEASE PARTICLES 887474 DULOXETINE HCL Inactive ZITHROMAX Z-REYNA 250 MG ORAL TABLET 2 today, then 1 daily for 4 d ays ZITHROMAX Z-REYNA 250 MG ORAL TABLET 727609 AZITHROMYCIN Inactive CEFDINIR 300 MG ORAL CAPSULE by mouth twice a day 2010 CEFDINIR 300 MG ORAL CAPSULE 360215 CEFDINIR Inactive CEFDINIR 300 MG ORAL CAPSULE by mouth twice a day 2010 CEFDINIR 300 MG ORAL CAPSULE 553502 CEFDINIR Inactive CEFDINIR 300 MG ORAL CAPSULE by mouth twice a day 2010 CEFDINIR 300 MG ORAL CAPSULE 737635 CEFDINIR Inactive CEFDINIR 300 MG ORAL CAPSULE by mouth twice a day 2011 CEFDINIR 300 MG ORAL CAPSULE 591098 CEFDINIR Inactive ZITHROMAX 250 MG ORAL TABLET 2 po today, then 1 po q days 2-5 20 03/07/07 ZITHROMAX 250 MG ORAL TABLET 586767 AZITHROMYCIN [place] ctive CEFDINIR 300 MG ORAL CAPSULE by mouth twice a day 2011 CEFDINIR 300 MG ORAL CAPSULE 357842 CEFDINIR Inactive PREDNISONE 20 MG ORAL TABLET 2 tabs daily for 3 days, 1 tab daily for 3 days, 1/2 tab daily for 2 days PREDNISONE 20 MG ORAL T ABLET 308964 PREDNISONE Inactive AVELOX 400 MG ORAL TABLET 1 tab by mouth daily AVELOX 400 MG ORAL TABLET 585315 MOXIFLOXACIN HCL Inactive AVELOX 400 MG ORAL TABLET 1 tab by mouth daily AVELOX 400 MG ORAL TABLET 320707 MOXIFLOXACIN HCL Inactive PREDNISONE 20 MG ORAL TABLET Take 3 tabs daily for 3 d ays, 2 tabs daily for 3 days, 1 tab daily for 3 days, 1/2 tab daily for 3 days 11/07 PREDNISONE 20 MG ORAL TABLET 129123 PREDNISONE Inactive LEVAQUIN 500 MG ORAL TABLET take one po QD LEVAQUIN 500 MG ORAL TABLET 172606 LEVOFLOXACIN Inactive AZITHROMYCIN 250 MG ORAL TABLET 2 po qd x 1 day, then 1 po q d x 4 days AZITHROMYCIN 250 MG ORAL TABLET 529943 AZITHROMY GIOVANNI Inactive MEDROL 4 MG ORAL TABLET THERAPY PACK 6 tabs on day 1, 5 tabs on day 2, 4 tabs on day 3, 3 tabs on day 4, 2 tabs on day 5, 1 tab on day 6 2013 MEDROL 4 MG ORAL TABLET THERAPY PACK 736986 METHYLPREDNISOLONE [place] ctive CHERATUSSIN AC 100-10 MG/5ML ORAL SYRUP 5ml po q6hr PRN Cough 20 13/04/14 CHERATUSSIN AC 100-10 MG/5ML ORAL SYRUP 937099 GUAIFENE SIN-CODEINE Inactive TRIAMCINOLONE ACETONIDE 0.1 % EXTERNAL CREAM apply three roger es daily prn rash TRIAMCINOLONE ACETONIDE 0.1 % EXTERNAL CREAM 101 4314 TRIAMCINOLONE ACETONIDE Inactive AZITHROMYCIN 250 MG ORAL TABLET 2 po qd x 1 day, then 1 po q d x 4 days AZITHROMYCIN 250 MG ORAL TABLET 677200 AZITHROMY GIOVANNI Inactive MEDROL 4 MG ORAL TABLET THERAPY PACK 6 pills x 1 day, then 5 pills x 1 day then 4 pills x 1 day, then 3 pills x 1 day, then 2 pills x 1 day, then 1 pill x 1 day, then stop MEDROL 4 MG ORAL TABLET THERAPY PACK 037892 METHYLPREDNISOLONE Inactive AMOXICILLIN 500 MG ORAL CAPSULE 1 tab by mouth 3 times daily x 10 days AMOXICILLIN 500 MG ORAL CAPSULE 528669 AMOXICILL IN Inactive AMOXICILLIN 500 MG ORAL CAPSULE 1 tab by mouth 3 times daily x 10 days AMOXICILLIN 500 MG ORAL CAPSULE 933684 AMOXICILL IN Inactive ZITHROMAX 250 MG ORAL TABLET 2 po today, then 1 po q days 2-5 20 12/08/14 ZITHROMAX 250 MG ORAL TABLET 261522 AZITHROMYCIN [place] [facility] AUGMENTIN 875-125 MG ORAL TABLET 1 po BID x 10 days 20 13/01/20 AUGMENTIN 875-125 MG ORAL TABLET 328587 AMOXICILLIN-POT CLAVULANATE Inactive ZITHROMAX Z-REYNA 250 MG ORAL TABLET 2 today, then 1 daily for 4 d ays ZITHROMAX Z-REYNA 250 MG ORAL TABLET 318286 AZITHROMYCIN Inactive ZITHROMAX 250 MG ORAL TABLET 2 po today, then 1 po q days 2-5 20 14/03/21 ZITHROMAX 250 MG ORAL TABLET 526357 AZITHROMYCIN [place] ctive ZITHROMAX Z-REYNA 250 MG ORAL TABLET 2 today, then 1 daily for 4 d ays ZITHROMAX Z-REYNA 250 MG ORAL TABLET 162490 AZITHROMYCIN Inactive CEFDINIR 300 MG ORAL CAPSULE 1 po BID x 10 days 06/21 CEFDINIR 300 MG ORAL CAPSULE 067693 CEFDINIR Inactive ZITHROMAX 250 MG ORAL TABLET 2 po today, then 1 po q days 2-5 20 13/08/10 ZITHROMAX 250 MG ORAL TABLET 553363 AZITHROMYCIN [place] [facility] LEVAQUIN 500 MG ORAL TABLET 1 tablet by mouth daily 13/09/24 LEVAQUIN 500 MG ORAL TABLET 120379 LEVOFLOXACIN Inactive SINGULAIR 10 MG ORAL TABLET 1 po qday for allergies 20 14/01/12 SINGULAIR 10 MG ORAL TABLET 20010504 MONTELUKAST SODIUM Inactive AMOXICILLIN 500 MG ORAL CAPSULE 2 po BID x 10 days 201 09/29/08 AMOXICILLIN 500 MG ORAL CAPSULE 276000 AMOXICILLIN Inactive PREDNISONE 20 MG ORAL TABLET 2 tabs daily for 3 days, 1 tab daily for 3 days, 1/2 tab daily for 2 days PREDNISONE 20 MG ORAL T ABLET 066483 PREDNISONE Inactive ZITHROMAX Z-REYNA 250 MG ORAL TABLET 2 today, then 1 daily for 4 d ays ZITHROMAX Z-REYNA 250 MG ORAL TABLET 494760 AZITHROMYCIN Inactive PREDNISONE 20 MG ORAL TABLET 2 tabs daily for 3 days, 1 tab daily for 3 days, 1/2 tab daily for 2 days PREDNISONE 20 MG ORAL T ABLET 596038 PREDNISONE Inactive ZITHROMAX 250 MG ORAL TABLET 2 po today, then 1 po q days 2-5 20 14/09/04 ZITHROMAX 250 MG ORAL TABLET 979499 AZITHROMYCIN [place] [facility] AMOXICILLIN 500 MG ORAL CAPSULE 1 cap by mouth three times a day AMOXICILLIN 500 MG ORAL CAPSULE 383166 AMOXICILLIN Inactive TERBINAFINE HCL 250 MG ORAL TABLET 1 qDay for nail fungus 7 TERBINAFINE HCL 250 MG ORAL TABLET 206832 TERBINAFINE HCL Inact nael AUGMENTIN 875-125 MG ORAL TABLET 1 po BID x 10 days 16/03/22 AUGMENTIN 875-125 MG ORAL TABLET 576952 AMOXICILLIN-POT CLAVULANATE Inactive PREDNISONE 20 MG ORAL TABLET 2 po qd x 5 days PREDNISONE 20 MG ORAL TABLET 260587 PREDNISONE Inactive AZITHROMYCIN 250 MG ORAL TABLET 2 po qd x 1 day, then 1 po q d x 4 days AZITHROMYCIN 250 MG ORAL TABLET 241340 AZITHROMY GIOVANNI Inactive PREDNISONE 50 MG ORAL TABLET Take 50 mg dialy for 6 day s 7 PREDNISONE 50 MG ORAL TABLET 586837 PREDNISONE Inactive AUGMENTIN 875-125 MG ORAL TABLET 1 po BID x 10 days 18/04/16 AUGMENTIN 875-125 MG ORAL TABLET 044567 AMOXICILLIN-POT CLAVULANATE Inactive DOXYCYCLINE HYCLATE 100 MG ORAL CAPSULE 1 cap by mouth twice latasha ly DOXYCYCLINE HYCLATE 100 MG ORAL CAPSULE 3232424 DOXYCYCL INE HYCLATE Inactive PREDNISONE 20 MG ORAL TABLET Take 2 tabs day 1 and 2 and 1 t ab days 3 and 4 PREDNISONE 20 MG ORAL TABLET 582300 PREDNISONE Inactive Vital Signs Date Name Value [...] - Chem istry sodium, serum 139 mmol/L 231-257 6734/03/19 potassium, serum 3.6 mmol/L 3.5-5.2 chloride, serum 100 mmol/L 98-107 carbon dioxide, venous blood 30.3 mmol/L 21.0-32 .0 blood glucose 101 mg/dL 65-110 calcium, serum 9.4 mg/dL 8.5-10.1 urea nitrogen, blood 10 mg/dL 7-18 creatinine, serum 0.96 mg/dL 0.60-1.30 sodium, serum 139 mmol/L 101-484 0326/10/12 potassium, serum 3.8 mmol/L 3.5-5.2 chloride, serum 102 mmol/L 98-107 carbon dioxide, venous blood 29.4 mmol/L 21.0-32 .0 blood glucose 103 mg/dL 65-95 calcium, serum 8.8 mg/dL 8.5-10.1 urea nitrogen, blood 10 mg/dL 7-18 creatinine, serum 0.97 mg/dL 0.60-1.30 Estimated Glomerular Filtration Rate (calc) 62 (?) mL/min/1.73m2 = OR > 60 mL/min Encounters Code Encounter Date Provider Facility CPT-15956 [id number] Vst-Est Level IV 08:41:[address] Carlton Hu MD [facility] CPT-41745 Level 3 Est. Patient 09:46:49 ACID WASH OPERATOR David lion APRN [facility] CPT-10584 [id number] Vst-Est Level III 11:12:16 CDT Yanet Bess DO [facility] CPT-62509 Level 3 Est. Patient 11:34:49 ACID WASH OPERATOR Perez Mora MD [facility] CPT-02538 Level 4 Est. Patient 09:51:32 ACID WASH OPERATOR Carlton rich MD [facility] CPT-96565 Level 3 Est. Patient 10:26:00 ACID WASH OPERATOR Elise Are ll [facility] CPT-70120 Level 3 Est. Patient 13:35:41 ACID WASH OPERATOR Carlton rich MD [facility] CPT-71706 Level 3 Est. Patient 10:03:52 ACID WASH OPERATOR Carlton rich MD [facility] CPT-96295 Level 3 Est. Patient 12:17:50 CDT Hugo Restrepo MD [facility] CPT-97222 Level 3 Est. Patient 13:42:38 CDT Elise Are ll [facility] CPT-90591 Level 3 Est. Patient 13:23:51 CDT Diya cobian [facility] CPT-21425 Level 3 Est. Patient 14:22:19 ACID WASH OPERATOR Diya cobian [facility] CPT-14049 Level 3 Est. Patient 10:11:46 CDT Carlton rich MD [facility] CPT-29643 Level 3 Est. Patient 17:29:43 CDT Elise Are [facility] CPT-73507 Level 3 Est. Patient 11:58:06 CDT Elise Are [facility] CPT-89706 Level 4 Est. Patient 14:36:51 CDT Carlton rich MD [facility] CPT-29653 Level 3 Est. Patient 18:16:00 ACID WASH OPERATOR Blaine HERNANDEZ [facility] CPT-39137 Level 3 Est. Patient 09:45:49 ACID WASH OPERATOR Carlton rich MD [facility] CPT-92393 Level 3 Est. Patient 13:19:20 CDT Carlton rich MD [facility] CPT-52874 Level 3 Est. Patient 13:06:43 CDT Ridge tam DO [facility] CPT-45383 Level 3 Est. Patient 10:03:07 CDT Perez Mora MD [facility] CPT-64221 Level 3 Est. Patient 19:50:35 ACID WASH OPERATOR Carlton rich MD [facility]-12289 Level 4 Est. Patient 18:05:01 ACID WASH OPERATOR Carlton rich MD [facility]-13045 Level 3 Est. Patient 10:45:55 ACID WASH OPERATOR Hugo Restrepo MD [facility]-62781 Level 3 Est. Patient 14:12:49 CDT Griffin HERNANDEZ [facility]-04990 Level 3 Est. Patient 17:37:24 CDT Carlton rich MD [facility]-32561 Level 3 Est. Patient 16:51:54 CDT Carlton rich MD [facility]-91350 Level 3 Est. Patient 12:18:11 CDT Hugo Restrepo MD [facility] CPT-24310 Level 3 Est. Patient 11:30:25 CDT Marcy crisostomo MD PhD [facility]-55938 Level 3 Est. Patient 12:00:47 ACID WASH OPERATOR Carlton rich MD [facility]-86362 Level 3 Est. Patient 16:31:06 ACID WASH OPERATOR Carlton rich MD [facility] CPT-67398 Level 3 Est. Patient 16:23:24 ACID WASH OPERATOR Ridge tam DO [facility] CPT-74369 Level 3 Est. Patient 12:34:12 CDT Carlton rich MD [facility]-18106 Level 2 Est. Patient 15:43:33 CDT Robi armstrong MD [facility]-24538 Level 4 Est. Patient 14:04:44 CDT Carlton rich MD [facility] CPT-64894 Level 3 Est. Patient 05:47:59 CDT Ridge tam DO [facility] CPT-19734 Level 3 Est. Patient 13:12:53 ACID WASH OPERATOR Carlton rich MD [facility] CPT-39848 Level 3 Est. Patient 14:26:53 CDT Hugo Restrepo MD [facility] Procedures Code Procedure Name Date Entry Date Standard Desc ription CPT-000 Give Appropriate Flu Vaccine 14:14:31 CDT 2 CPT-J1040 Depo Medrol 80 mg (Methyl Prednisolone A cetate) 10:42:44 CDT CPT-J1100 Decadron 8mg (Dexamethasone) 10:42:44 CDT 2 CPT-J0696 Rocephin 1gm Inj Solr 14:32:13 CDT CPT-J1020 Depo Medrol 60 mg (Methyl Prednisolone A cetate) 14:32:13 CDT CPT-J1100 Decadron 6mg (Dexamethasone) 14:32:13 CDT 2 CPT-89231 Hip bilat min 2V w AP pelvis 13:16:20 CDT 2 CPT-59178 Pelvis only 13:07:33 CDT CPT-08618 Spec Collection and Handling Fee 11:25:12 C DT CPT-93686 Fluzone Quadrivalent Intramuscular Suspe nsion 0.5 ML 14:31:55 CDT CPT-80138 Abx/Therapy Injection 13:28:47 ACID WASH OPERATOR CPT-J2930 Solu Medrol 125 mg (Methyl Prednisolone Sodium Succinate) 12:00:47 ACID WASH OPERATOR CPT-19361 Venipuncture Draw Fee 11:33:31 CDT CPT-75981 EKG Trac and Interp 11:21:09 CDT CPT-04226 Chest 2V Frontal and Lat 11:21:09 CDT 12/15 CPT-62947 Venipuncture Draw Fee 08:02:34 CDT CPT-60818 Chest 2V Frontal and Lat 05:47:59 CDT 06/05
--- OUTSIDE RECORDS SUMMARY | 2019-10-08 09:12 | XMS REPORT | Clinical Summary ---
Author Author Caitlin, Juliana Martinez Organization [facility] Address Unknown Phone Unavailable Allergies, [...] URI 465.9 Inactive Ridge Bess DO Ac [place] upper respiratory infections of unspecified site Body [...] po q12hr PRN Cough HYDROCOD POLST-CHLORPHEN POLST 52126224360 Active David Marianne POWDERER Active PREDNISONE 20 MG ORAL TABLET Take 2 tabs day 1 and 2 and 1 t ab days 3 and 4 PREDNISONE 28705317695 No Longer Active David Marianne POWDERER Active DOXYCYCLINE HYCLATE 100 MG ORAL CAPSULE 1 cap by mouth twice latasha ly DOXYCYCLINE HYCLATE 03501027238 No Longer Active David Marianne POWDERER Active TOPAMAX 100 MG ORAL TABLET Take 1 tablet po bid TOPIRAMATE 66271034702 No Longer Active David Marianne POWDERER Active TUSSIONEX PENNKINETIC ER 10-8 MG/5ML ORAL SUSPENSION E XTENDED RELEASE 5ml po q12hr PRN Cough HYDROCOD POLST-CHLORPHEN POLST 5 5813192230 No Longer Active David Marianne POWDERER Active AUGMENTIN 875-125 MG ORAL TABLET 1 po BID x 10 days 20 18/04/16 AMOXICILLIN-POT CLAVULANATE 48271166769 No Longer Active David Marianne POWDERER Active PREDNISONE 50 MG ORAL TABLET Take 50 mg dialy for 6 day s 7 PREDNISONE 99485390706 No Longer Active David Lopes APRN Active TUSSIONEX PENNKINETIC ER 10-8 MG/5ML ORAL SUSPENSION E XTENDED RELEASE 5ml po q12hr PRN Cough HYDROCOD POLST-CHLORPHEN POLST 5 3454204984 No Longer Active Cherelle Torres RN Active PREDNISONE 20 MG ORAL TABLET two tabs by mouth today, then one tab by mouth days two and three and four PREDNISONE 39737797964 No Lo nger Active Cherelle Torres RN Active AZITHROMYCIN 250 MG ORAL TABLET 2 po qd x 1 day, then 1 po q d x 4 days AZITHROMYCIN 55079870480 No Longer Active Ridge Bess DO Active PREDNISONE 20 MG ORAL TABLET 2 po qd x 5 days P REDNISONE 94767379017 No Longer Active Perez Mora MD Active PROAIR HFA 108 (90 BASE) MCG/ACT INHALATION AEROSOL SO LUTION 2 puffs four times a day as needed ALBUTEROL SULFATE 26203714816 No Long er Active Becky AGUILARA Active ASPIRIN 81 MG ORAL TABLET 1 po qd ASPIRIN 09207800194 Active Carlton Hu MD Active PREDNISONE 20 MG ORAL TABLET 1 tab twice daily for 3 d ay, then one daily for three days PREDNISONE 27679087406 No Longer Active Carlton Hu MD Active AUGMENTIN 875-125 MG ORAL TABLET 1 po BID x 10 days 20 16/03/22 AMOXICILLIN-POT CLAVULANATE 47140741411 No Longer Active Elise Garcia APRN Active TERBINAFINE HCL 250 MG ORAL TABLET 1 qDay for nail fungus 7 TERBINAFINE HCL 00805674792 No Longer Active Carlton Hu MD A ctive AMOXICILLIN 500 MG ORAL CAPSULE 1 cap by mouth three times a day AMOXICILLIN 99937227486 No Longer Active Carlton Hu MD Active ELMIRON 100 MG ORAL CAPSULE 2 tablets in the am and 1 tablet at hs PENTOSAN POLYSULFATE SODIUM 83868782139 No Longer Active Robert Hu MD Active MUCINEX D 60-600 MG ORAL TABLET EXTENDED RELEASE 12 HOUR 1 t ab po q am PSEUDOEPHEDRINE-GUAIFENESIN 41075694205 No Longer Act nael Carlton Hu MD Active MUCINEX DM MAXIMUM STRENGTH 60-1200 MG ORAL TABLET EXT ENDED RELEASE 12 HOUR 1 tab po q am DEXTROMETHORPHAN-GUAIFENESIN 36145955137 No Longer Active Carlton Hu MD Active TUSSIONEX PENNKINETIC ER 10-8 MG/5ML ORAL SUSPENSION E XTENDED RELEASE 5ml po q12hr PRN Cough HYDROCOD POLST-CHLORPHEN POLST 5 6188317044 No Longer Active Carlton Hu MD Active POTASSIUM CHLORIDE ER 20 MEQ ORAL TABLET EXTENDED RELE ASE Take 1 by mouth 4 times daily for 7 days POTASSIUM CHLORIDE 56144889658 No Longer Active Carlton Hu MD Active ZITHROMAX 250 MG ORAL TABLET 2 po today, then 1 po q days 2-5 14/09/04 AZITHROMYCIN 05028522468 No Longer Active Elise Garcia APRN Active TUSSIONEX PENNKINETIC ER 10-8 MG/5ML ORAL SUSPENSION E XTENDED RELEASE 5 ml twice a day as needed for cough HYDROCOD POLST-CHLORPH EN POLST 61764569598 No Longer Active Elise Garcia APRN Active MONTELUKAST SODIUM 10 MG ORAL TABLET 1 po daily for Allergy MONTELUKAST SODIUM 20350452052 Active ALFREDO Holly Act nael TUSSIONEX PENNKINETIC ER 10-8 MG/5ML ORAL SUSPENSION E XTENDED RELEASE 5ml po q12hr PRN Cough HYDROCOD POLST-CHLORPHEN POLST 5 1630709486 No Longer Active Hugo Restrepo MD Active GABAPENTIN 100 MG ORAL CAPSULE 1 po BID for fibromyalgia GABAPENTIN 17291875134 Active Carlton Hu MD Active LYRICA 100 MG ORAL CAPSULE Take 1 tab po BID for fibromyalgia 20 11/08/21 PREGABALIN 01411679699 No Longer Active Elise Garcia APRN A ctive PREDNISONE 20 MG ORAL TABLET 2 tabs daily for 3 days, 1 tab daily for 3 days, 1/2 tab daily for 2 days PREDNISONE 72040902918 No Longer Active Venullina Cesarl POWDERER Active TUSSIONEX PENNKINETIC ER 10-8 MG/5ML ORAL SUSPENSION E XTENDED RELEASE 5 mL PO q 12 hrs PRN cough HYDROCOD POLST-CHLORPHEN POLST 105285 59064 No Longer Active Jillina Frakerriel POWDERER Active FLUTICASONE PROPIONATE 50 MCG/ACT NASAL SUSPENSION 2 s prays each nostril daily until bottle is empty FLUTICASONE PROPIONATE 609458232 99 No Longer Active Jillina Frazell POWDERER Active ASMANEX 60 METERED DOSES 220 MCG/INH INHALATION AEROSO L POWDER BREATH ACTIVATED 1 puff bid with rinse after MOMETASONE FUROATE 3889883 4102 No Longer Active Jillina Cesarl POWDERER Active ZITHROMAX Z-REYNA 250 MG ORAL TABLET 2 today, then 1 daily for 4 d ays AZITHROMYCIN 15602659186 No Longer Active Elise Garcia POWDERER Active TUSSIONEX PENNKINETIC ER 10-8 MG/5ML ORAL SUSPENSION E XTENDED RELEASE 5ml po q12hr PRN Cough HYDROCOD POLST-CHLORPHEN POLST 5 1268949605 No Longer Active Elise Garcia APRN Active PREDNISONE 20 MG ORAL TABLET 2 tabs daily for 3 days, 1 tab daily for 3 days, 1/2 tab daily for 2 days PREDNISONE 96824889212 No Longer Active Jillina Cesarl POWDERER Active AMOXICILLIN 500 MG ORAL CAPSULE 2 po BID x 10 days 201 09/29/08 AMOXICILLIN 47281184025 No Longer Active Jillina Cesarl POWDERER Act nael SINGULAIR 10 MG ORAL TABLET 1 po qday for allergies 20 14/01/12 MONTELUKAST SODIUM 51231388636 No Longer Active Carlton Hu MD Active LEVAQUIN 500 MG ORAL TABLET 1 tablet by mouth daily 13/09/24 LEVOFLOXACIN 34712112582 No Longer Active Carlton Hu MD Acti ve FLUTICASONE PROPIONATE 50 MCG/ACT NASAL SUSPENSION 2 s prays each nostril daily for 2 weeks, then 1 spray each nostril daily. FLUTICASONE PROPIONATE 01260252402 Active ALFREDO Holly Active ZITHROMAX 250 MG ORAL TABLET 2 po today, then 1 po q days 2-5 20 13/08/10 AZITHROMYCIN 82201447999 No Longer Active Elise Garcia APRN Active XANAX 0.5 MG ORAL TABLET one tablet by mouth daily prn anxiety 2015 ALPRAZOLAM 41877977489 Active ALFREDO Holly Active CYMBALTA 30 MG ORAL CAPSULE DELAYED RELEASE PARTICLES 1 cap by mouth daily for depression DULOXETINE HCL 49141556388 Active ALFREDO Holly Active CEFDINIR 300 MG ORAL CAPSULE 1 po BID x 10 days CEFDINIR 68830793632 No Longer Active Carlton Hu MD Active ZOCOR 40 MG ORAL TABLET 1 tab by mouth daily SI MVASTATIN 95463079137 No Longer Active Carlton Hu MD Active CYCLOBENZAPRINE HCL 10 MG ORAL TABLET 1 tablet by mouth BID prn had pain CYCLOBENZAPRINE HCL 40992085703 No Longer Active Jayden Hu MD Active LEVOFLOXACIN 500 MG ORAL TABLET 1 tab PO daily x 10 days LEVOFLOXACIN 64502681851 No Longer Active Carlotn Hu MD Acti ve PREDNISONE 20 MG ORAL TABLET 3 tab PO qd x 2d, 2 tab P O qd x 2d, 1 tab PO qd x 2d, 1/2 tab PO qd x 2d PREDNISONE 15334570869 No Lo nger Active Carlton Hu MD Active FLUTICASONE PROPIONATE 50 MCG/ACT NASAL SUSPENSION 1 t o 2 sprays each nostril daily FLUTICASONE PROPIONATE 60552268270 No Longer Ac tive Blaine HERNANDEZ Active CHERATUSSIN AC 100-10 MG/5ML ORAL SYRUP 1 tsp by mouth every 4 hours as needed for cough GUAIFENESIN-CODEINE 07167364075 No Longe r Active Blaine HERNANDEZ Active PROMETHAZINE-CODEINE 6.25-10 MG/5ML ORAL SYRUP 1 tsp b y mouth every 6 hours if needed for cough PROMETHAZINE-CODEINE 29612471489 No Longer Active Blaine HERNANDEZ Active CHERATUSSIN AC 100-10 MG/5ML ORAL SYRUP 1 tsp by mouth every 4 hours as needed for cough GUAIFENESIN-CODEINE 44432039598 No Longe r Active Blaine HERNANDEZ Active ZITHROMAX Z-REYNA 250 MG ORAL TABLET 2 today, then 1 daily for 4 d ays AZITHROMYCIN 46978256639 No Longer Active Columba Raida Act nael ZITHROMAX 250 MG ORAL TABLET 2 po today, then 1 po q days 2-5 20 14/03/21 AZITHROMYCIN 05450825684 No Longer Active Carlton Hu MD Active ZITHROMAX Z-REYNA 250 MG ORAL TABLET 2 today, then 1 daily for 4 d ays AZITHROMYCIN 31786237389 No Longer Active Columba Raida Act nael AUGMENTIN 875-125 MG ORAL TABLET 1 po BID x 10 days 13/01/20 AMOXICILLIN-POT CLAVULANATE 02850093955 No Longer Active Diya De Guzman APRN Active ZITHROMAX 250 MG ORAL TABLET 2 po today, then 1 po q days 2-5 20 12/08/14 AZITHROMYCIN 23119301105 No Longer Active Carlton Hu MD Active TRAMADOL HCL 50 MG ORAL TABLET 1 po tid with ES Tylenol TRAMADOL HCL 69602071030 Active Adrienne Galvez ENGINEER PROCESS Active PREMARIN 0.625 MG ORAL TABLET TAKE 1 TAB BY MOUTH DAILY ESTROGENS CONJUGATED 84663181310 No Longer Active Ridge Bess DO A ctive CYMBALTA 30 MG ORAL CAPSULE DELAYED RELEASE PARTICLES 1 cap by mouth daily DULOXETINE HCL 59682000161 No Longer Active Ridge Ya ee DO Active AMOXICILLIN 500 MG ORAL CAPSULE 1 tab by mouth 3 times daily x 10 days AMOXICILLIN 12417905538 No Longer Active Carlton bustamante MD Active AMOXICILLIN 500 MG ORAL CAPSULE 1 tab by mouth 3 times daily x 10 days AMOXICILLIN 50513994579 No Longer Active Carlton bustamante MD Active PROMETHAZINE-CODEINE 6.25-10 MG/5ML ORAL SYRUP 1 tsp b y mouth every 8 hours prn cough PROMETHAZINE-CODEINE 81370024471 No Longer Acti ve Carlton Hu MD Active MEDROL 4 MG ORAL TABLET THERAPY PACK 6 pills x 1 day, then 5 pills x 1 day then 4 pills x 1 day, then 3 pills x 1 day, then 2 pills x 1 day, then 1 pill x 1 day, then stop METHYLPREDNISOLONE 23368341229 No Long er Active Perez Mora MD Active AZITHROMYCIN 250 MG ORAL TABLET 2 po qd x 1 day, then 1 po q d x 4 days AZITHROMYCIN 91944788313 No Longer Active Perez Ambriz MD Active SYMBICORT 160-4.5 MCG/ACT INHALATION AEROSOL 2 puffs bid wit h rinse after BUDESONIDE-FORMOTEROL FUMARATE 58490157868 N o Longer Active Perez Mora MD Active LYRICA 75 MG ORAL CAPSULE TAKE 1 CAPSULE BY MOUTH TWICE DAILY PREGABALIN 28753215819 No Longer Active Carlton Hu MD Acti ve TOPAMAX 25 MG ORAL TABLET 1 qHS x 1 week, then 1 BID x 1 week, then 1 qAM and 2 qHS x 1 week, then 2 BID (migraine prevention) T OPIRAMATE 17950740942 No Longer Active Jerica FUENTES Active TOPAMAX 50 MG ORAL TABLET take 1 tab po BID for migraines. 07/02 TOPIRAMATE 06654608082 No Longer Active Jerica FUENTES Active TRIAMCINOLONE ACETONIDE 0.1 % EXTERNAL CREAM apply three roger es daily prn rash TRIAMCINOLONE ACETONIDE 37281441426 No Longer Active Carlton Hu MD Active PAXIL 40 MG ORAL TABLET take 1 tab po qday for depression 0 PAROXETINE HCL 92128449131 Active ALFREDO Holly Active CHERATUSSIN AC 100-10 MG/5ML ORAL SYRUP 5ml po q6hr PRN Cough 20 13/04/14 GUAIFENESIN-CODEINE 05119108315 No Longer Active Carlton Hu MD Active MEDROL 4 MG ORAL TABLET THERAPY PACK 6 tabs on day 1, 5 tabs on day 2, 4 tabs on day 3, 3 tabs on day 4, 2 tabs on day 5, 1 tab on day 6 2013 METHYLPREDNISOLONE 23664500114 No Longer Active Perez Mora MD Active AZITHROMYCIN 250 MG ORAL TABLET 2 po qd x 1 day, then 1 po q d x 4 days AZITHROMYCIN 48000919214 No Longer Active Perez Ambriz MD Active PROPRANOLOL HCL 60 MG ORAL TABLET 1 PO Q D PROPRANOLOL HCL 39901915955 No Longer Active Perez Mora MD Activ e CHERATUSSIN AC 100-10 MG/5ML ORAL SYRUP take one tsp po Q 6h ours prn cough GUAIFENESIN-CODEINE 38442652201 No Longer Active Zia Mora MD Active AUGMENTIN 875-125 MG ORAL TABLET 1 tab by mouth twice daily with food AMOXICILLIN-POT CLAVULANATE 34407906963 No Longer Act nael Perez Mora MD Active CHERATUSSIN AC 100-10 MG/5ML ORAL SYRUP 1 tsp by mouth every 4 hours as needed for cough GUAIFENESIN-CODEINE 48311365690 No Longe r Active Hugo Restrepo MD Active ACETAMINOPHEN-CODEINE #3 300-30 MG ORAL TABLET 1 PO Q 4-6 HRS [place] PA[place] ACETAMINOPHEN-CODEINE 38302269453 No Longer Active Hugo Restrepo MD Active LEVAQUIN 500 MG ORAL TABLET take one po QD LEVO FLOXACIN 80037176383 No Longer Active Griffin HERNANDEZ Active PREDNISONE 20 MG ORAL TABLET Take 3 tabs daily for 3 d ays, 2 tabs daily for 3 days, 1 tab daily for 3 days, 1/2 tab daily for 3 days 11/07 PREDNISONE 95464407745 No Longer Active Carlton Hu MD Acti ve AVELOX 400 MG ORAL TABLET 1 tab by mouth daily MOXIFLOXACIN HCL 83593069647 No Longer Active Carlton Hu MD Active CHERATUSSIN AC 100-10 MG/5ML ORAL SYRUP 1 tsp by mouth every 4 hours as needed for cough GUAIFENESIN-CODEINE 48372852513 No Longe r Active Hugo Restrepo MD Active AVELOX 400 MG ORAL TABLET 1 tab by mouth daily MOXIFLOXACIN HCL 79605885517 No Longer Active Marcy De La Rosa MD PhD Active TERBINAFINE HCL 250 MG ORAL TABLET 1 qDay T ERBINAFINE HCL 01866275714 No Longer Active Marcy De La Rosa MD PhD Active CHERATUSSIN AC 100-10 MG/5ML ORAL SYRUP 1 tsp by mouth every 4 hours as needed for cough GUAIFENESIN-CODEINE 14086161343 No Longe r Active Marcy De La Rosa MD PhD Active AVELOX 400 MG ORAL TABLET 1 tab by mouth daily MOXIFLOXACIN HCL 06928480245 No Longer Active Marcy De La Rosa MD PhD Active HYDROCODONE-ACETAMINOPHEN 5-325 MG ORAL TABLET 1 po q 6hr PRN co ugh HYDROCODONE-ACETAMINOPHEN 75053713223 No Longer Active Marcy De La Rosa MD PhD Active PREDNISONE 20 MG ORAL TABLET 2 tabs daily for 3 days, 1 tab daily for 3 days, 1/2 tab daily for 2 days PREDNISONE 54696336451 No Longer Active Carlton Hu MD Active CEFDINIR 300 MG ORAL CAPSULE by mouth twice a day 2011 CEFDINIR 35590206960 No Longer Active Carlton Hu MD Acti ve HYDROCHLOROTHIAZIDE 25 MG ORAL TABLET 1 TAB PO DAILY HYDROCHLOROTHIAZIDE 57583171615 Active ALFREDO Holly Ac tive ACETAMINOPHEN-CODEINE #3 300-30 MG ORAL TABLET 1 tablet po q 4-6 hrs prn pain ACETAMINOPHEN-CODEINE 95969844053 No Longer Active Ridge Bess DO Active ZITHROMAX 250 MG ORAL TABLET 2 po today, then 1 po q days 2-5 20 03/07/07 AZITHROMYCIN 39121052832 No Longer Active Carlton Hu MD Active CHERATUSSIN AC 100-10 MG/5ML ORAL SYRUP take 1 tsp po q4-6 h ours prn cough GUAIFENESIN-CODEINE 79365144558 No Longer Active Jayden Hu MD Active ACETAMINOPHEN-CODEINE #3 300-30 MG ORAL TABLET 1 PO Q 4-6 HR PRN PAIN ACETAMINOPHEN-CODEINE 10316030885 No Longer Active Da raimundo Hu MD Active LORTAB 7.5-500 MG/15ML ORAL ELIXIR 7.5 ml po q 4 hour prn cough HYDROCODONE-ACETAMINOPHEN 08652205392 No Longer Active Carlton Hu MD Active PREDNISONE 20 MG ORAL TABLET 1 po bid 3 days, then 1 po q day 3 days PREDNISONE 69022461711 No Longer Active Carlton Hu MD Active CEFDINIR 300 MG ORAL CAPSULE by mouth twice a day 2011 CEFDINIR 41064524861 No Longer Active Carlton Hu MD Acti ve CEFDINIR 300 MG ORAL CAPSULE by mouth twice a day 2010 CEFDINIR 72175955855 No Longer Active Carlton Hu MD Acti ve CEFDINIR 300 MG ORAL CAPSULE by mouth twice a day 2010 CEFDINIR 22594879557 No Longer Active Carlton Hu MD Acti ve TESSALON PERLES 100 MG ORAL CAPSULE 1 tablet by mouth 3 times daily as needed for cough BENZONATATE 15952263070 No Longer Active Carlton Hu MD Active CEFDINIR 300 MG ORAL CAPSULE by mouth twice a day 2010 CEFDINIR 84447028483 No Longer Active Carlton Hu MD Acti ve ZITHROMAX Z-REYNA 250 MG ORAL TABLET 2 today, then 1 daily for 4 d ays AZITHROMYCIN 37928465132 No Longer Active Hugo Restrepo MD Active TESSALON PERLES 100 MG ORAL CAPSULE 1 tablet by mouth 3 times daily as needed for cough TESSALON PERLES 100 MG ORAL CAPSULE 39413 7 BENZONATATE Inactive PREDNISONE 20 MG ORAL TABLET 1 po bid 3 days, then 1 po q day 3 days PREDNISONE 20 MG ORAL TABLET 103956 PREDNISONE Greer ctive LORTAB 7.5-500 MG/15ML ORAL [...] cough CHERATUSSIN AC 100-10 MG/5ML ORAL SYRUP 260007 GUAIFENESIN-CODEINE Inactive ACETAMINOPHEN-CODEINE #3 300-30 MG ORAL TABLET 1 tablet po q 4-6 hrs prn pain ACETAMINOPHEN-CODEINE #3 300-30 MG ORAL TABLET ACETAMINOPHEN-CODEINE Inactive HYDROCODONE-ACETAMINOPHEN 5-325 MG ORAL TABLET 1 po q 6hr PRN co ugh HYDROCODONE-ACETAMINOPHEN 5-325 MG ORAL TABLET 497828 HYDROCODONE-ACETAMINOPHEN Inactive AVELOX 400 MG ORAL TABLET 1 tab by mouth daily AVELOX 400 MG ORAL TABLET 623627 MOXIFLOXACIN HCL Inactive CHERATUSSIN AC 100-10 MG/5ML ORAL SYRUP 1 tsp by mouth every 4 hours as needed for cough CHERATUSSIN AC 100-10 MG/5ML ORAL SYRUP 9 90622 GUAIFENESIN-CODEINE Inactive TERBINAFINE HCL 250 MG ORAL TABLET 1 qDay 07/08 TERBINAFINE HCL 250 MG ORAL TABLET 400414 TERBINAFINE HCL Inactive CHERATUSSIN AC 100-10 MG/5ML ORAL SYRUP 1 tsp by mouth every 4 hours as needed for cough CHERATUSSIN AC 100-10 MG/5ML ORAL SYRUP 9 12853 GUAIFENESIN-CODEINE Inactive ACETAMINOPHEN-CODEINE #3 300-30 MG ORAL TABLET 1 PO Q 4-6 HRS [place] N PAIN ACETAMINOPHEN-CODEINE #3 300-30 MG ORAL TABLET ACETAMINOPHEN-CODEINE Inactive CHERATUSSIN AC 100-10 MG/5ML ORAL SYRUP 1 tsp by mouth every 4 hours as needed for cough CHERATUSSIN AC 100-10 MG/5ML ORAL SYRUP 9 73484 GUAIFENESIN-CODEINE Inactive AUGMENTIN 875-125 MG ORAL TABLET 1 tab by mouth twice daily with food AUGMENTIN 875-125 MG ORAL TABLET 510862 AMOXICIL MADELINE-POT CLAVULANATE Inactive CHERATUSSIN AC 100-10 MG/5ML ORAL SYRUP take one tsp po Q 6h ours prn cough CHERATUSSIN AC 100-10 MG/5ML ORAL SYRUP 905906 GUAIFENESIN-CODEINE Inactive PROPRANOLOL HCL 60 MG ORAL TABLET 1 PO Q D PROPRANOLOL HCL 60 MG ORAL TABLET 084300 PROPRANOLOL HCL Inactive TOPAMAX 50 MG ORAL TABLET take 1 tab po BID for migraines. 07/02 TOPAMAX 50 MG ORAL TABLET 376763 TOPIRAMATE Inacti ve TOPAMAX 25 MG ORAL TABLET 1 qHS x 1 week, then 1 BID x 1 week, then 1 qAM and 2 qHS x 1 week, then 2 BID (migraine prevention) TOPAMAX 25 MG ORAL TABLET 404074 TOPIRAMATE Inactive LYRICA 75 MG ORAL CAPSULE TAKE 1 CAPSULE BY MOUTH TWICE DAILY LYRICA 75 MG ORAL CAPSULE PREGABALIN Inactive SYMBICORT 160-4.5 MCG/ACT INHALATION AEROSOL 2 puffs bid wit h rinse after SYMBICORT 160-4.5 MCG/ACT INHALATION AEROSOL BUDESONIDE- FORMOTEROL FUMARATE Inactive PROMETHAZINE-CODEINE 6.25-10 MG/5ML ORAL SYRUP 1 tsp b y mouth every 8 hours prn cough PROMETHAZINE-CODEINE 6.25-10 MG/ 5ML ORAL SYRUP 653876 PROMETHAZINE-CODEINE Inactive CYMBALTA 30 MG ORAL CAPSULE DELAYED RELEASE PARTICLES 1 cap by mouth daily CYMBALTA 30 MG ORAL CAPSULE DELAYED RELE ASE PARTICLES 447107 DULOXETINE HCL Inactive PREMARIN 0.625 MG ORAL TABLET TAKE 1 TAB BY MOUTH DAILY PREMARIN 0.625 MG ORAL TABLET ESTROGENS CONJUGATED Inactive CHERATUSSIN AC 100-10 MG/5ML ORAL SYRUP 1 tsp by mouth every 4 hours as needed for cough CHERATUSSIN AC 100-10 MG/5ML ORAL SYRUP 9 13829 GUAIFENESIN-CODEINE Inactive PROMETHAZINE-CODEINE 6.25-10 MG/5ML ORAL SYRUP 1 tsp b y mouth every 6 hours if needed for cough PROMETHAZINE-CODEINE 6.25-10 MG/5ML ORAL SYRUP 095976 PROMETHAZINE-CODEINE Inactive CHERATUSSIN AC 100-10 MG/5ML ORAL SYRUP 1 tsp by mouth every 4 hours as needed for cough CHERATUSSIN AC 100-10 MG/5ML ORAL SYRUP 9 69381 GUAIFENESIN-CODEINE Inactive FLUTICASONE PROPIONATE 50 MCG/ACT NASAL SUSPENSION 1 t o 2 sprays each nostril daily FLUTICASONE PROPIONATE 50 MCG/AC T NASAL SUSPENSION 6444842 FLUTICASONE PROPIONATE Inactive PREDNISONE 20 MG ORAL TABLET 3 tab PO qd x 2d, 2 tab P O qd x 2d, 1 tab PO qd x 2d, 1/2 tab PO qd x 2d PREDNISONE 20 MG ORAL TAB LET 687009 PREDNISONE Inactive LEVOFLOXACIN 500 MG ORAL TABLET 1 tab PO daily x 10 days LEVOFLOXACIN 500 MG ORAL TABLET 077300 LEVOFLOXACIN Inactive CYCLOBENZAPRINE HCL 10 MG ORAL TABLET 1 tablet by mouth BID prn had pain CYCLOBENZAPRINE HCL 10 MG ORAL TABLET 054902 CYCLOBENZAPRINE HCL Inactive ZOCOR 40 MG ORAL TABLET 1 tab by mouth daily 4 ZOCOR 40 MG ORAL TABLET 519403 SIMVASTATIN Inactive TUSSIONEX PENNKINETIC ER 10-8 MG/5ML [...] FLUTICASONE PROPIO EFE 50 MCG/ACT NASAL SUSPENSION 9836612 FLUTICASONE PROPIONATE Inactive TUSSIONEX PENNKINETIC ER 10-8 [...] three days PREDNISONE 20 MG ORAL TABLET 125227 PREDNIS ONE Inactive PROAIR HFA 108 (90 BASE) MCG/ACT INHALATION AEROSOL SO LUTION 2 puffs four times a day as needed PROAIR HFA 108 (90 B ASE) MCG/ACT INHALATION AEROSOL SOLUTION ALBUTEROL SULFATE Inactive PREDNISONE 20 MG ORAL TABLET two tabs by mouth today, then one tab by mouth days two and three and four PREDNISONE 20 MG ORAL TAB LET 645909 PREDNISONE Inactive TUSSIONEX PENNKINETIC ER 10-8 MG/5ML [...] bid 04/20 TOPAMAX 100 MG ORAL TABLET 889282 TOPIRAMATE Inactive ZITHROMAX Z-REYNA 250 MG ORAL TABLET 2 today, then 1 daily for 4 d ays ZITHROMAX Z-REYNA 250 MG ORAL TABLET 895518 AZITHROMYCIN Inactive CEFDINIR 300 MG ORAL CAPSULE [...] 2-5 03/07/07 ZITHROMAX 250 MG ORAL TABLET 700328 AZITHROMYCIN Reedy ctive CEFDINIR 300 MG ORAL CAPSULE by mouth twice a day 2011 CEFDINIR 300 MG ORAL CAPSULE 812546 CEFDINIR Inactive PREDNISONE 20 MG ORAL TABLET 2 tabs daily for 3 days, 1 tab daily for 3 days, 1/2 tab daily for 2 days PREDNISONE 20 MG ORAL T ABLET 310094 PREDNISONE Inactive AVELOX 400 MG ORAL TABLET 1 tab by mouth daily AVELOX 400 MG ORAL TABLET 303067 MOXIFLOXACIN HCL Inactive AVELOX 400 MG ORAL TABLET 1 tab by mouth daily AVELOX 400 MG ORAL TABLET 415871 MOXIFLOXACIN HCL Inactive PREDNISONE 20 MG ORAL TABLET Take 3 tabs daily for 3 d ays, 2 tabs daily for 3 days, 1 tab daily for 3 days, 1/2 tab daily for 3 days 11/07 PREDNISONE 20 MG ORAL TABLET 341233 PREDNISONE Inactive LEVAQUIN 500 MG ORAL TABLET take one po QD LEVAQUIN 500 MG ORAL TABLET 938288 LEVOFLOXACIN Inactive AZITHROMYCIN 250 MG ORAL TABLET 2 po qd x 1 day, then 1 po q d x 4 days AZITHROMYCIN 250 MG ORAL TABLET 956219 AZITHROMY GIOVANNI Inactive MEDROL 4 MG ORAL TABLET THERAPY PACK 6 tabs on day 1, 5 tabs on day 2, 4 tabs on day 3, 3 tabs on day 4, 2 tabs on day 5, 1 tab on day 6 2013 MEDROL 4 MG ORAL TABLET THERAPY PACK 257780 METHYLPREDNISOLONE Reedy ctive CHERATUSSIN AC 100-10 MG/5ML ORAL SYRUP 5ml po q6hr PRN Cough 20 13/04/14 CHERATUSSIN AC 100-10 MG/5ML ORAL SYRUP 859937 GUAIFENE SIN-CODEINE Inactive TRIAMCINOLONE ACETONIDE 0.1 % EXTERNAL CREAM apply three roger es daily prn rash TRIAMCINOLONE ACETONIDE 0.1 % EXTERNAL CREAM 101 4314 TRIAMCINOLONE ACETONIDE Inactive AZITHROMYCIN 250 MG ORAL TABLET 2 po qd x 1 day, then 1 po q d x 4 days AZITHROMYCIN 250 MG ORAL TABLET 557356 AZITHROMY GIOVANNI Inactive MEDROL 4 MG ORAL TABLET THERAPY PACK 6 pills x 1 day, then 5 pills x 1 day then 4 pills x 1 day, then 3 pills x 1 day, then 2 pills x 1 day, then 1 pill x 1 day, then stop MEDROL 4 MG ORAL TABLET THERAPY PACK 682308 METHYLPREDNISOLONE Inactive AMOXICILLIN 500 MG ORAL CAPSULE 1 tab by mouth 3 times daily x 10 days AMOXICILLIN 500 MG ORAL CAPSULE 482464 AMOXICILL IN Inactive AMOXICILLIN 500 MG ORAL CAPSULE 1 tab by mouth 3 times daily x 10 days AMOXICILLIN 500 MG ORAL CAPSULE 073222 AMOXICILL IN Inactive ZITHROMAX 250 MG ORAL TABLET 2 po today, then 1 po q days 2-5 20 12/08/14 ZITHROMAX 250 MG ORAL TABLET 527272 AZITHROMYCIN Reedy ctive AUGMENTIN 875-125 MG ORAL TABLET 1 po BID x 10 days 20 13/01/20 AUGMENTIN 875-125 MG ORAL TABLET 089440 AMOXICILLIN-POT CLAVULANATE Inactive ZITHROMAX Z-REYNA 250 MG ORAL TABLET 2 today, then 1 daily for 4 d ays ZITHROMAX Z-REYNA 250 MG ORAL TABLET 951639 AZITHROMYCIN Inactive ZITHROMAX 250 MG ORAL TABLET 2 po today, then 1 po q days 2-5 20 14/03/21 ZITHROMAX 250 MG ORAL TABLET 838522 AZITHROMYCIN Greer ctive ZITHROMAX Z-REYNA 250 MG ORAL TABLET 2 today, then 1 daily for 4 d ays ZITHROMAX Z-REYNA 250 MG ORAL TABLET 879970 AZITHROMYCIN Inactive CEFDINIR 300 MG ORAL CAPSULE 1 po BID x 10 days 06/21 CEFDINIR 300 MG ORAL CAPSULE 388275 CEFDINIR Inactive ZITHROMAX 250 MG ORAL TABLET 2 po today, then 1 po q days 2-5 20 13/08/10 ZITHROMAX 250 MG ORAL TABLET 853227 AZITHROMYCIN Reedy ctive LEVAQUIN 500 MG ORAL TABLET 1 tablet by mouth daily 13/09/24 LEVAQUIN 500 MG ORAL TABLET 149555 LEVOFLOXACIN Inactive SINGULAIR 10 MG ORAL TABLET 1 po qday for allergies 20 14/01/12 SINGULAIR 10 MG ORAL TABLET 523643 MONTELUKAST SODIUM Inactive AMOXICILLIN 500 MG ORAL CAPSULE 2 po BID x 10 days 201 09/29/08 AMOXICILLIN 500 MG ORAL CAPSULE 982393 AMOXICILLIN Inactive PREDNISONE 20 MG ORAL TABLET 2 tabs daily for 3 days, 1 tab daily for 3 days, 1/2 tab daily for 2 days PREDNISONE 20 MG ORAL T ABLET 735590 PREDNISONE Inactive ZITHROMAX Z-REYNA 250 MG ORAL TABLET 2 today, then 1 daily for 4 d ays ZITHROMAX Z-REYNA 250 MG ORAL TABLET 930211 AZITHROMYCIN Inactive PREDNISONE 20 MG ORAL TABLET 2 tabs daily for 3 days, 1 tab daily for 3 days, 1/2 tab daily for 2 days PREDNISONE 20 MG ORAL T ABLET 348009 PREDNISONE Inactive ZITHROMAX 250 MG ORAL TABLET 2 po today, then 1 po q days 2-5 20 14/09/04 ZITHROMAX 250 MG ORAL TABLET 901339 AZITHROMYCIN Reedy ctive AMOXICILLIN 500 MG ORAL CAPSULE 1 cap by mouth three times a day AMOXICILLIN 500 MG ORAL CAPSULE 582556 AMOXICILLIN Inactive TERBINAFINE HCL 250 MG ORAL TABLET 1 qDay for nail fungus 7 TERBINAFINE HCL 250 MG ORAL TABLET 153025 TERBINAFINE HCL Inact nael AUGMENTIN 875-125 MG ORAL TABLET 1 po BID x 10 days 16/03/22 AUGMENTIN 875-125 MG ORAL TABLET 085505 AMOXICILLIN-POT CLAVULANATE Inactive PREDNISONE 20 MG ORAL TABLET 2 po qd x 5 days PREDNISONE 20 MG ORAL TABLET 467887 PREDNISONE Inactive AZITHROMYCIN 250 MG ORAL TABLET 2 po qd x 1 day, then 1 po q d x 4 days AZITHROMYCIN 250 MG ORAL TABLET 317208 AZITHROMY GIOVANNI Inactive PREDNISONE 50 MG ORAL TABLET Take 50 mg dialy for 6 day s 7 PREDNISONE 50 MG ORAL TABLET 420674 PREDNISONE Inactive AUGMENTIN 875-125 MG ORAL TABLET 1 po BID x 10 days 20 18/04/16 AUGMENTIN 875-125 MG ORAL TABLET 374914 AMOXICILLIN-POT CLAVULANATE Inactive DOXYCYCLINE HYCLATE 100 MG ORAL CAPSULE 1 cap by mouth twice latasha ly DOXYCYCLINE HYCLATE 100 MG ORAL CAPSULE 0736522 DOXYCYCL INE HYCLATE Inactive PREDNISONE 20 MG ORAL TABLET Take 2 tabs day 1 and 2 and 1 t ab days 3 and 4 PREDNISONE 20 MG ORAL TABLET 180944 PREDNISONE Inactive Vital Signs Date Name Value [...] weight E&M 140.50 [lb_av] Weight Measure d blood pressure, diastolic 53 mm[Hg] BP srinivasan blood pressure, systolic 65 mm[Hg] BP sys height E&M 53 [in_us] Bdy height pulse rate E&M 86 /min Heart rate temperature E&M 98.6 [degF] Body temp erature weight E&M 139.5 [lb_av] Weight Measure d Diagnostic Results Date Name Value Unit Range Description Lab Report: Basic Metabolic Panel - Chem istry sodium, serum 139 mmol/L [phone]/03/19 potassium, serum 3.6 mmol/L 3.5-5.2 chloride, serum 100 mmol/L 98-107 carbon dioxide, venous blood 30.3 mmol/L 21.0-32 .0 blood glucose 101 mg/dL 65-110 calcium, serum 9.4 mg/dL 8.5-10.1 urea nitrogen, blood 10 mg/dL 7-18 creatinine, serum 0.96 mg/dL 0.60-1.30 sodium, serum 139 mmol/L 109-585 6199/10/12 potassium, serum 3.8 mmol/L 3.5-5.2 chloride, serum 102 mmol/L 98-107 carbon dioxide, venous blood 29.4 mmol/L 21.0-32 .0 blood glucose 103 mg/dL 65-95 calcium, serum 8.8 mg/dL 8.5-10.1 urea nitrogen, blood 10 mg/dL 7-18 creatinine, serum 0.97 mg/dL 0.60-1.30 Estimated Glomerular Filtration Rate (calc) 62 (?) mL/min/1.73m2 = OR > 60 mL/min Encounters Code Encounter Date Provider Facility CPT-48112 Level 3 Est. Patient 09:46:49 HOBBER David lion [facility] [id number] Vst-Est Level III 11:12:16 CDT Yanet Bess DO [facility] CPT-13907 Level 3 Est. Patient 11:34:49 HOBBER Perez Mora MD [facility] CPT-72157 Level 4 Est. Patient 09:51:32 HOBBER Carlton rich MD [facility] CPT-03863 Level 3 Est. Patient 10:26:00 HOBBER Elise stephenson [facility] CPT-06897 Level 3 Est. Patient 13:35:41 HOBBER Carlton rich MD [facility] CPT-54385 Level 3 Est. Patient 10:03:52 HOBBER Carlton rich MD [facility] CPT-77822 Level 3 Est. Patient 12:17:50 CDT Hugo Restrepo MD [facility] CPT-91092 Level 3 Est. Patient 13:42:38 CDT Elise stephenson [facility] CPT-87781 Level 3 Est. Patient 13:23:51 CDT Diya cobian [facility] CPT-30073 Level 3 Est. Patient 14:22:19 HOBBER Diya cobian [facility] CPT-67789 Level 3 Est. Patient 10:11:46 CDT Carlton rich MD [facility] CPT-21055 Level 3 Est. Patient 17:29:43 CDT Elise Are [facility] CPT-12933 Level 3 Est. Patient 11:58:06 CDT Elise Are [facility] CPT-45179 Level 4 Est. Patient 14:36:51 CDT Carlton rich MD [facility] CPT-42331 Level 3 Est. Patient 18:16:00 HOBBER Blaine Freeman [facility] CPT-40447 Level 3 Est. Patient 09:45:49 HOBBER Carlton rich MD [facility] CPT-68684 Level 3 Est. Patient 13:19:20 CDT Carlton rich MD [facility] CPT-15585 Level 3 Est. Patient 13:06:43 CDT Ridge tam DO [facility] CPT-24689 Level 3 Est. Patient 10:03:07 CDT Perez Mora MD [facility] CPT-00076 Level 3 Est. Patient 19:50:35 HOBBER Carlton rich MD [facility] CPT-71574 Level 4 Est. Patient 18:05:01 HOBBER Carlton rich MD [facility] CPT-47309 Level 3 Est. Patient 10:45:55 HOBBER Hugo Restrepo MD [facility] CPT-77420 Level 3 Est. Patient 14:12:49 CDT Griffin lincoln [facility]-97596 Level 3 Est. Patient 17:37:24 CDT Carlton rich MD [facility] CPT-70107 Level 3 Est. Patient 16:51:54 CDT Carlton rich MD [facility] CPT-68916 Level 3 Est. Patient 12:18:11 CDT Hugo Restrepo MD [facility] CPT-62756 Level 3 Est. Patient 11:30:25 CDT Marcy crisostomo MD PhD [facility] CPT-31259 Level 3 Est. Patient 12:00:47 HOBBER Carlton rich MD [facility] CPT-82692 Level 3 Est. Patient 16:31:06 HOBBER Carlton rich MD [facility] CPT-52104 Level 3 Est. Patient 16:23:24 HOBBER Ridge tam [facility] CPT-50792 Level 3 Est. Patient 12:34:12 CDT Carlton rich MD [facility] CPT-04565 Level 2 Est. Patient 15:43:33 CDT Robi armstrong MD [facility] CPT-75190 Level 4 Est. Patient 14:04:44 CDT Carlton rich MD [facility] CPT-92621 Level 3 Est. Patient 05:47:59 CDT Ridge tam [facility] CPT-79476 Level 3 Est. Patient 13:12:53 HOBBER Carltno rich MD [facility] CPT-06861 Level 3 Est. Patient 14:26:53 CDT Hugo Restrepo MD [facility] Procedures Code Procedure Name Date Entry Date Standard Desc ription CPT-000 Give Appropriate Flu Vaccine 14:14:31 CDT CPT-J1040 Depo Medrol 80 mg (Methyl Prednisolone A cetate) 10:42:44 CDT CPT-J1100 Decadron 8mg (Dexamethasone) 10:42:44 CDT 2 CPT-J0696 Rocephin 1gm Inj Solr 14:32:13 CDT CPT-J1020 Depo Medrol 60 mg (Methyl Prednisolone A cetate) 14:32:13 CDT CPT-J1100 Decadron 6mg (Dexamethasone) 14:32:13 CDT 2 CPT-22151 Hip bilat min 2V w AP pelvis 13:16:20 CDT 2 CPT-87706 Pelvis only 13:07:33 CDT CPT-56973 Spec Collection and Handling Fee 11:25:12 C DT CPT-47740 Fluzone Quadrivalent Intramuscular Suspe nsion 0.5 ML 14:31:55 CDT CPT-93577 Abx/Therapy Injection 13:28:47 HOBBER CPT-J2930 Solu Medrol 125 mg (Methyl Prednisolone Sodium Succinate) 12:00:47 HOBBER CPT-33953 Venipuncture Draw Fee 11:33:31 CDT CPT-59815 EKG Trac and Interp 11:21:09 CDT CPT-65689 Chest 2V Frontal and Lat 11:21:09 CDT 12/15 CPT-61048 Venipuncture Draw Fee 08:02:34 CDT CPT-46671 Chest 2V Frontal and Lat 05:47:59 CDT 06/05
--- OUTSIDE RECORDS SUMMARY | 2019-10-08 09:12 | XMS REPORT | Clinical Summary ---
Author Author Caitlin, Juliana Martinez Organization [facility] Address Unknown Phone Unavailable Allergies, Adverse [...] or chronic Upper respiratory infection 465.9 Active uHgo Restrepo MD Acute upper respiratory infections of [...] unspecified Morbid obesity due to excess calories [facility] David Lopes APRN Obesity, unspecified [...] by mouth daily for depression DULOXETINE HCL 85484133717 No Longer Active Carlton Hu MD Active CYMBALTA 60 MG ORAL CAPSULE DELAYED RELEASE PARTICLES 1 cap by mouth daily for mood and pain DULOXETINE HCL 69536450572 Active Carlton Hu MD Active TUSSIONEX PENNKINETIC ER 10-8 MG/5ML ORAL SUSPENSION E XTENDED RELEASE 5ml po q12hr PRN Cough HYDROCOD POLST-CHLORPHEN POLST 61484408488 Active David Marianne [employer]IV[employer]AL [employer]ER SET UP 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 PREDNISONE 20 MG ORAL TABLET Take 2 tabs day 1 and 2 and 1 t ab days 3 and 4 PREDNISONE 31546514509 No Longer Active David Marianne [employer]IV[employer]AL [employer]ER SET UP 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 DOXYCYCLINE HYCLATE 100 MG ORAL CAPSULE 1 cap by mouth twice latasha ly DOXYCYCLINE HYCLATE 19704371336 No Longer Active David Lopes [employer]IV[employer]ER SET UP 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 TOPAMAX 100 MG ORAL TABLET Take 1 tablet po bid TOPIRAMATE 15046893688 No Longer Active David Marianne [employer]IV[employer]ER SET UP 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 TUSSIONEX PENNKINETIC ER 10-8 MG/5ML ORAL SUSPENSION E XTENDED RELEASE 5ml po q12hr PRN Cough HYDROCOD POLST-CHLORPHEN POLST 5 5111091122 No Longer Active David Marianne [employer]IV[employer]AL [employer]ER SET UP 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 AUGMENTIN 875-125 MG ORAL TABLET 1 po BID x 10 days 18/04/16 AMOXICILLIN-POT CLAVULANATE 65315554123 No Longer Active David Lopes [employer]IV[employer]ER [employer] UP 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 PREDNISONE 50 MG ORAL TABLET Take 50 mg dialy for 6 day s 7 PREDNISONE 08563509476 No Longer Active David Marianne [employer]IV[employer]ER [employer] UP 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 TUSSIONEX PENNKINETIC ER 10-8 MG/5ML ORAL SUSPENSION E XTENDED RELEASE 5ml po q12hr PRN Cough HYDROCOD POLST-CHLORPHEN POLST 5 5860753899 No Longer Active Cherelle Torres RN Active PREDNISONE 20 MG ORAL TABLET two tabs by mouth today, then one tab by mouth days two and three and four PREDNISONE 98476794874 No Lo nger Active Cherelle Torres RN Active AZITHROMYCIN 250 MG ORAL TABLET 2 po qd x 1 day, then 1 po q d x 4 days AZITHROMYCIN 66222966002 No Longer Active Ridge Bess DO Active PREDNISONE 20 MG ORAL TABLET 2 po qd x 5 days P REDNISONE 67524287848 No Longer Active Perez Mora MD Active PROAIR HFA 108 (90 BASE) MCG/ACT INHALATION AEROSOL SO LUTION 2 puffs four times a day as needed ALBUTEROL SULFATE 94439065828 No Long er Active Becky AGUILARA Active ASPIRIN 81 MG ORAL TABLET 1 po qd ASPIRIN 82119983713 Active Carlton uH MD Active PREDNISONE 20 MG ORAL TABLET 1 tab twice daily for 3 d ay, then one daily for three days PREDNISONE 65556170533 No Longer Active Carlton Hu MD Active AUGMENTIN 875-125 MG ORAL TABLET 1 po BID x 10 days 16/03/22 AMOXICILLIN-POT CLAVULANATE 44144014602 No Longer Active Elise Garcia APRN Active TERBINAFINE HCL 250 MG ORAL TABLET 1 qDay for nail fungus 7 TERBINAFINE HCL 05944177790 No Longer Active Carlton Hu MD A ctive AMOXICILLIN 500 MG ORAL CAPSULE 1 cap by mouth three times a day AMOXICILLIN 23279551994 No Longer Active Carlton Hu MD Active ELMIRON 100 MG ORAL CAPSULE 2 tablets in the am and 1 tablet at hs PENTOSAN POLYSULFATE SODIUM 46035266045 No Longer Active Robert jade Hu MD Active MUCINEX D 60-600 MG ORAL TABLET EXTENDED RELEASE 12 HOUR 1 t ab po q am PSEUDOEPHEDRINE-GUAIFENESIN 74057577246 No Longer Act nael Carlton Hu MD Active MUCINEX DM MAXIMUM STRENGTH 60-1200 MG ORAL TABLET EXT ENDED RELEASE 12 HOUR 1 tab po q am DEXTROMETHORPHAN-GUAIFENESIN 07883359767 No Longer Active Carlton Hu MD Active TUSSIONEX PENNKINETIC ER 10-8 MG/5ML ORAL SUSPENSION E XTENDED RELEASE 5ml po q12hr PRN Cough HYDROCOD POLST-CHLORPHEN POLST 5 1415814751 No Longer Active Carlton Hu MD Active POTASSIUM CHLORIDE ER 20 MEQ ORAL TABLET EXTENDED RELE ASE Take 1 by mouth 4 times daily for 7 days POTASSIUM CHLORIDE 12298365454 No Longer Active Carlton Hu MD Active ZITHROMAX 250 MG ORAL TABLET 2 po today, then 1 po q days 2-5 20 14/09/04 AZITHROMYCIN 89396215576 No Longer Active Elise Garcia APRN Active TUSSIONEX PENNKINETIC ER 10-8 MG/5ML ORAL SUSPENSION E XTENDED RELEASE 5 ml twice a day as needed for cough HYDROCOD POLST-CHLORPH EN POLST 48185907006 No Longer Active Elise Garcia APRN Active MONTELUKAST SODIUM 10 MG ORAL TABLET 1 po daily for Allergy MONTELUKAST SODIUM 54804865512 Active Carlton Hu MD Ac tive TUSSIONEX PENNKINETIC ER 10-8 MG/5ML ORAL SUSPENSION E XTENDED RELEASE 5ml po q12hr PRN Cough HYDROCOD POLST-CHLORPHEN POLST 5 5841624821 No Longer Active Hugo Restrepo MD Active GABAPENTIN 100 MG ORAL CAPSULE 1 po BID for fibromyalgia GABAPENTIN 36783046262 Active Carlton Hu MD Active LYRICA 100 MG ORAL CAPSULE Take 1 tab po BID for fibromyalgia 20 11/08/21 PREGABALIN 75553934413 No Longer Active Elise Garcia APRN A ctive PREDNISONE 20 MG ORAL TABLET 2 tabs daily for 3 days, 1 tab daily for 3 days, 1/2 tab daily for 2 days PREDNISONE 77125818724 No Longer Active Astridina Cesarl [employer]ER [employer] UP 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 TUSSIONEX PENNKINETIC ER 10-8 MG/5ML ORAL SUSPENSION E XTENDED RELEASE 5 mL PO q 12 hrs PRN cough HYDROCOD POLST-CHLORPHEN POLST 548730 71589 No Longer Active Jillina Frazell [employer] UP 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 FLUTICASONE PROPIONATE 50 MCG/ACT NASAL SUSPENSION 2 s prays each nostril daily until bottle is empty FLUTICASONE PROPIONATE 354505052 99 No Longer Active Jillina Frazell [employer]IV[employer]ER SET UP 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 ASMANEX 60 METERED DOSES 220 MCG/INH INHALATION AEROSO L POWDER BREATH ACTIVATED 1 puff bid with rinse after MOMETASONE FUROATE 6932341 4102 No Longer Active Jillina Frazell [employer]IV[employer]ER SET UP 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 ZITHROMAX Z-REYNA 250 MG ORAL TABLET 2 today, then 1 daily for 4 d ays AZITHROMYCIN 77066269837 No Longer Active Elise Garcia APRN Active TUSSIONEX PENNKINETIC ER 10-8 MG/5ML ORAL SUSPENSION E XTENDED RELEASE 5ml po q12hr PRN Cough HYDROCOD POLST-CHLORPHEN POLST 5 4144350436 No Longer Active Elise Garcia APRN Active PREDNISONE 20 MG ORAL TABLET 2 tabs daily for 3 days, 1 tab daily for 3 days, 1/2 tab daily for 2 days PREDNISONE 82775646382 No Longer Active Diya De Guzman APRN Active AMOXICILLIN 500 MG ORAL CAPSULE 2 po BID x 10 days 201 09/29/08 AMOXICILLIN 64633325281 No Longer Active Jiriley De Guzman APRN Act nael SINGULAIR 10 MG ORAL TABLET 1 po qday for allergies 20 14/01/12 MONTELUKAST SODIUM 56951388949 No Longer Active Carlton Hu MD Active LEVAQUIN 500 MG ORAL TABLET 1 tablet by mouth daily 20 13/09/24 LEVOFLOXACIN 34708192765 No Longer Active Carlton Hu MD Acti ve FLUTICASONE PROPIONATE 50 MCG/ACT NASAL SUSPENSION 2 s prays each nostril daily for 2 weeks, then 1 spray each nostril daily. FLUTICASONE PROPIONATE 12154731524 Active Carlton Hu MD Active ZITHROMAX 250 MG ORAL TABLET 2 po today, then 1 po q days 2-5 20 13/08/10 AZITHROMYCIN 02154573678 No Longer Active Elise Garcia APRN Active XANAX 0.5 MG ORAL TABLET one tablet by mouth daily prn anxiety 2015 ALPRAZOLAM 70729478730 Active ALFREDO Holly Active CEFDINIR 300 MG ORAL CAPSULE 1 po BID x 10 days CEFDINIR 11002101232 No Longer Active Carlton Hu MD Active ZOCOR 40 MG ORAL TABLET 1 tab by mouth daily SI MVASTATIN 90836710224 No Longer Active Carlton Hu MD Active CYCLOBENZAPRINE HCL 10 MG ORAL TABLET 1 tablet by mouth BID prn had pain CYCLOBENZAPRINE HCL 03999166209 No Longer Active Jayden Hu MD Active LEVOFLOXACIN 500 MG ORAL TABLET 1 tab PO daily x 10 days LEVOFLOXACIN 19068363499 No Longer Active Carlton Hu MD Acti ve PREDNISONE 20 MG ORAL TABLET 3 tab PO qd x 2d, 2 tab P O qd x 2d, 1 tab PO qd x 2d, 1/2 tab PO qd x 2d PREDNISONE 81701765218 No Lo nger Active Carlton Hu MD Active FLUTICASONE PROPIONATE 50 MCG/ACT NASAL SUSPENSION 1 t o 2 sprays each nostril daily FLUTICASONE PROPIONATE 13047753887 No Longer Ac tive Blaine HERNANDEZ Active CHERATUSSIN AC 100-10 MG/5ML ORAL SYRUP 1 tsp by mouth every 4 hours as needed for cough GUAIFENESIN-CODEINE 93954606984 No Longe r Active Blaine HERNANDEZ Active PROMETHAZINE-CODEINE 6.25-10 MG/5ML ORAL SYRUP 1 tsp b y mouth every 6 hours if needed for cough PROMETHAZINE-CODEINE 35172282918 No Longer Active Blaine HERNANDEZ Active CHERATUSSIN AC 100-10 MG/5ML ORAL SYRUP 1 tsp by mouth every 4 hours as needed for cough GUAIFENESIN-CODEINE 10041191031 No Longe r Active Blaine HERNANDEZ Active ZITHROMAX Z-REYNA 250 MG ORAL TABLET 2 today, then 1 daily for 4 d ays AZITHROMYCIN 03372745854 No Longer Active Columba Raida Act nael ZITHROMAX 250 MG ORAL TABLET 2 po today, then 1 po q days 2-5 20 14/03/21 AZITHROMYCIN 37625773759 No Longer Active Carlton Hu MD Active ZITHROMAX Z-REYNA 250 MG ORAL TABLET 2 today, then 1 daily for 4 d ays AZITHROMYCIN 67948948637 No Longer Active Columba Raida Act nael AUGMENTIN 875-125 MG ORAL TABLET 1 po BID x 10 days 13/01/20 AMOXICILLIN-POT CLAVULANATE 61298397470 No Longer Active Diya De Guzman APRN Active ZITHROMAX 250 MG ORAL TABLET 2 po today, then 1 po q days 2-5 12/08/14 AZITHROMYCIN 69171258612 No Longer Active Carlton Hu MD Active TRAMADOL HCL 50 MG ORAL TABLET 1 po tid with ES Tylenol TRAMADOL HCL 51081567209 Active ALFREDO Holly Active PREMARIN 0.625 MG ORAL TABLET TAKE 1 TAB BY MOUTH DAILY ESTROGENS CONJUGATED 91047297993 No Longer Active Ridge Bess DO A ctive CYMBALTA 30 MG ORAL CAPSULE DELAYED RELEASE PARTICLES 1 cap by mouth daily DULOXETINE HCL 71280429455 No Longer Active Ridge tam DO Active AMOXICILLIN 500 MG ORAL CAPSULE 1 tab by mouth 3 times daily x 10 days AMOXICILLIN 93128396899 No Longer Active Carlton bustamante MD Active AMOXICILLIN 500 MG ORAL CAPSULE 1 tab by mouth 3 times daily x 10 days AMOXICILLIN 57137216396 No Longer Active Carlton bustamante MD Active PROMETHAZINE-CODEINE 6.25-10 MG/5ML ORAL SYRUP 1 tsp b y mouth every 8 hours prn cough PROMETHAZINE-CODEINE 89130407686 No Longer Acti ve Carlton Hu MD Active MEDROL 4 MG ORAL TABLET THERAPY PACK 6 pills x 1 day, then 5 pills x 1 day then 4 pills x 1 day, then 3 pills x 1 day, then 2 pills x 1 day, then 1 pill x 1 day, then stop METHYLPREDNISOLONE 66107862446 No Long er Active Perez Mora MD Active AZITHROMYCIN 250 MG ORAL TABLET 2 po qd x 1 day, then 1 po q d x 4 days AZITHROMYCIN 41607257165 No Longer Active Perez Ambriz MD Active SYMBICORT 160-4.5 MCG/ACT INHALATION AEROSOL 2 puffs bid wit h rinse after BUDESONIDE-FORMOTEROL FUMARATE 18548067276 N o Longer Active Perez Mora MD Active LYRICA 75 MG ORAL CAPSULE TAKE 1 CAPSULE BY MOUTH TWICE DAILY PREGABALIN 99243563340 No Longer Active Carlton Hu MD Acti ve TOPAMAX 25 MG ORAL TABLET 1 qHS x 1 week, then 1 BID x 1 week, then 1 qAM and 2 qHS x 1 week, then 2 BID (migraine prevention) T OPIRAMATE 24702002918 No Longer Active Jerica FUENTES Active TOPAMAX 50 MG ORAL TABLET take 1 tab po BID for migraines. 07/02 TOPIRAMATE 72852897814 No Longer Active Jerica FUENTES Active TRIAMCINOLONE ACETONIDE 0.1 % EXTERNAL CREAM apply three roger es daily prn rash TRIAMCINOLONE ACETONIDE 89274336112 No Longer Active Carlton Hu MD Active PAXIL 40 MG ORAL TABLET take 1 tab po qday for depression 0 PAROXETINE HCL 93259846656 Active Cralton Hu MD Active CHERATUSSIN AC 100-10 MG/5ML ORAL SYRUP 5ml po q6hr PRN Cough 20 13/04/14 GUAIFENESIN-CODEINE 27180861645 No Longer Active Carlton Hu MD Active MEDROL 4 MG ORAL TABLET THERAPY PACK 6 tabs on day 1, 5 tabs on day 2, 4 tabs on day 3, 3 tabs on day 4, 2 tabs on day 5, 1 tab on day 6 2013 METHYLPREDNISOLONE 08380524835 No Longer Active Perez Mora MD Active AZITHROMYCIN 250 MG ORAL TABLET 2 po qd x 1 day, then 1 po q d x 4 days AZITHROMYCIN 51722974192 No Longer Active Perez Ambriz MD Active PROPRANOLOL HCL 60 MG ORAL TABLET 1 PO Q D PROPRANOLOL HCL 86839153337 No Longer Active Perez Mora MD Activ e CHERATUSSIN AC 100-10 MG/5ML ORAL SYRUP take one tsp po Q 6h ours prn cough GUAIFENESIN-CODEINE 53760031514 No Longer Active Zia Mora MD Active AUGMENTIN 875-125 MG ORAL TABLET 1 tab by mouth twice daily with food AMOXICILLIN-POT CLAVULANATE 37323852202 No Longer Act nael Mora MD Active CHERATUSSIN AC 100-10 MG/5ML ORAL SYRUP 1 tsp by mouth every 4 hours as needed for cough GUAIFENESIN-CODEINE 27727108790 No Longe r Active Hugo Restrepo MD Active ACETAMINOPHEN-CODEINE #3 300-30 MG ORAL TABLET 1 PO Q 4-6 HRS NV N PAIN ACETAMINOPHEN-CODEINE 01178165095 No Longer Active Hugo Restrepo MD Active LEVAQUIN 500 MG ORAL TABLET take one po QD LEVO FLOXACIN 23860998402 No Longer Active Griffin HERNANDEZ Active PREDNISONE 20 MG ORAL TABLET Take 3 tabs daily for 3 d ays, 2 tabs daily for 3 days, 1 tab daily for 3 days, 1/2 tab daily for 3 days 11/07 PREDNISONE 28735620661 No Longer Active Carlton Hu MD Acti ve AVELOX 400 MG ORAL TABLET 1 tab by mouth daily MOXIFLOXACIN HCL 22662733721 No Longer Active Carlton Hu MD Active CHERATUSSIN AC 100-10 MG/5ML ORAL SYRUP 1 tsp by mouth every 4 hours as needed for cough GUAIFENESIN-CODEINE 72736483310 No Longe r Active Hugo Restrepo MD Active AVELOX 400 MG ORAL TABLET 1 tab by mouth daily MOXIFLOXACIN HCL 94263609387 No Longer Active Marcy De La Rosa MD PhD Active TERBINAFINE HCL 250 MG ORAL TABLET 1 qDay T ERBINAFINE HCL 92392004690 No Longer Active Marcy De La Rosa MD PhD Active CHERATUSSIN AC 100-10 MG/5ML ORAL SYRUP 1 tsp by mouth every 4 hours as needed for cough GUAIFENESIN-CODEINE 85240129404 No Longe r Active Marcy De La Rosa MD PhD Active AVELOX 400 MG ORAL TABLET 1 tab by mouth daily MOXIFLOXACIN HCL 71200182722 No Longer Active Marcy De La Rosa MD PhD Active HYDROCODONE-ACETAMINOPHEN 5-325 MG ORAL TABLET 1 po q 6hr PRN co ugh HYDROCODONE-ACETAMINOPHEN 63531424896 No Longer Active Marcy De La Rosa MD PhD Active PREDNISONE 20 MG ORAL TABLET 2 tabs daily for 3 days, 1 tab daily for 3 days, 1/2 tab daily for 2 days PREDNISONE 77954739457 No Longer Active Carlton Hu MD Active CEFDINIR 300 MG ORAL CAPSULE by mouth twice a day 2011 CEFDINIR 95020713337 No Longer Active Carlton Hu MD Acti ve HYDROCHLOROTHIAZIDE 25 MG ORAL TABLET 1 TAB PO DAILY HYDROCHLOROTHIAZIDE 48049187885 Active Carlton Hu MD A ctive ACETAMINOPHEN-CODEINE #3 300-30 MG ORAL TABLET 1 tablet po q 4-6 hrs prn pain ACETAMINOPHEN-CODEINE 80299400142 No Longer Active Ridge Bess DO Active ZITHROMAX 250 MG ORAL TABLET 2 po today, then 1 po q days 2-5 20 03/07/07 AZITHROMYCIN 97923210721 No Longer Active Carlton Hu MD Active CHERATUSSIN AC 100-10 MG/5ML ORAL SYRUP take 1 tsp po q4-6 h ours prn cough GUAIFENESIN-CODEINE 04451071619 No Longer Active Jayden Hu MD Active ACETAMINOPHEN-CODEINE #3 300-30 MG ORAL TABLET 1 PO Q 4-6 HR PRN PAIN ACETAMINOPHEN-CODEINE 02355905229 No Longer Active Arnol Hu MD Active LORTAB 7.5-500 MG/15ML ORAL ELIXIR 7.5 ml po q 4 hour prn cough HYDROCODONE-ACETAMINOPHEN 38708474925 No Longer Active Carlton Hu MD Active PREDNISONE 20 MG ORAL TABLET 1 po bid 3 days, then 1 po q day 3 days PREDNISONE 71827157753 No Longer Active Carlton Hu MD Active CEFDINIR 300 MG ORAL CAPSULE by mouth twice a day 2011 CEFDINIR 13195483045 No Longer Active Carlton Hu MD Acti ve CEFDINIR 300 MG ORAL CAPSULE by mouth twice a day 2010 CEFDINIR 94756377948 No Longer Active Carlton Hu MD Acti ve CEFDINIR 300 MG ORAL CAPSULE by mouth twice a day 2010 CEFDINIR 80691375004 No Longer Active Carlton Hu MD Acti ve TESSALON PERLES 100 MG ORAL CAPSULE 1 tablet by mouth 3 times daily as needed for cough BENZONATATE 29851082529 No Longer Active Carlton Hu MD Active CEFDINIR 300 MG ORAL CAPSULE by mouth twice a day 2010 CEFDINIR 09334747281 No Longer Active Carlton Hu MD Acti ve ZITHROMAX Z-REYNA 250 MG ORAL TABLET 2 today, then 1 daily for 4 d ays AZITHROMYCIN 66545602804 No Longer Active Hugo Restrepo MD Active TESSALON PERLES 100 MG ORAL CAPSULE 1 tablet by mouth 3 times daily as needed for cough TESSALON PERLES 100 MG ORAL CAPSULE 29132 7 BENZONATATE Inactive PREDNISONE 20 MG ORAL TABLET 1 po bid 3 days, then 1 po q day 3 days PREDNISONE 20 MG ORAL TABLET 905389 PREDNISONE [place] ctive LORTAB 7.5-500 MG/15ML ORAL ELIXIR 7.5 [...] cough CHERATUSSIN AC 100-10 MG/5ML ORAL SYRUP 567492 GUAIFENESIN-CODEINE Inactive ACETAMINOPHEN-CODEINE #3 300-30 MG ORAL TABLET 1 tablet po q 4-6 hrs prn pain ACETAMINOPHEN-CODEINE #3 300-30 MG ORAL TABLET ACETAMINOPHEN-CODEINE Inactive HYDROCODONE-ACETAMINOPHEN 5-325 MG ORAL TABLET 1 po q 6hr PRN co ugh HYDROCODONE-ACETAMINOPHEN 5-325 MG ORAL TABLET 552839 HYDROCODONE-ACETAMINOPHEN Inactive AVELOX 400 MG ORAL TABLET 1 tab by mouth daily AVELOX 400 MG ORAL TABLET 963848 MOXIFLOXACIN HCL Inactive CHERATUSSIN AC 100-10 MG/5ML ORAL SYRUP 1 tsp by mouth every 4 hours as needed for cough CHERATUSSIN AC 100-10 MG/5ML ORAL SYRUP 9 64599 GUAIFENESIN-CODEINE Inactive TERBINAFINE HCL 250 MG ORAL TABLET 1 qDay 07/08 TERBINAFINE HCL 250 MG ORAL TABLET 981433 TERBINAFINE HCL Inactive CHERATUSSIN AC 100-10 MG/5ML ORAL SYRUP 1 tsp by mouth every 4 hours as needed for cough CHERATUSSIN AC 100-10 MG/5ML ORAL SYRUP 9 02980 GUAIFENESIN-CODEINE Inactive ACETAMINOPHEN-CODEINE #3 300-30 MG ORAL TABLET 1 PO Q 4-6 HRS NV N PAIN ACETAMINOPHEN-CODEINE #3 300-30 MG ORAL TABLET ACETAMINOPHEN-CODEINE Inactive CHERATUSSIN AC 100-10 MG/5ML ORAL SYRUP 1 tsp by mouth every 4 hours as needed for cough CHERATUSSIN AC 100-10 MG/5ML ORAL SYRUP 9 83539 GUAIFENESIN-CODEINE Inactive AUGMENTIN 875-125 MG ORAL TABLET 1 tab by mouth twice daily with food AUGMENTIN 875-125 MG ORAL TABLET 070686 AMOXICIL MADELINE-POT CLAVULANATE Inactive CHERATUSSIN AC 100-10 MG/5ML ORAL SYRUP take one tsp po Q 6h ours prn cough CHERATUSSIN AC 100-10 MG/5ML ORAL SYRUP 613078 GUAIFENESIN-CODEINE Inactive PROPRANOLOL HCL 60 MG ORAL TABLET 1 PO Q D PROPRANOLOL HCL 60 MG ORAL TABLET 311826 PROPRANOLOL HCL Inactive TOPAMAX 50 MG ORAL TABLET take 1 tab po BID for migraines. 07/02 TOPAMAX 50 MG ORAL TABLET 959848 TOPIRAMATE Inacti ve TOPAMAX 25 MG ORAL TABLET 1 qHS x 1 week, then 1 BID x 1 week, then 1 qAM and 2 qHS x 1 week, then 2 BID (migraine prevention) TOPAMAX 25 MG ORAL TABLET 843357 TOPIRAMATE Inactive LYRICA 75 MG ORAL CAPSULE TAKE 1 CAPSULE BY MOUTH TWICE DAILY LYRICA 75 MG ORAL CAPSULE PREGABALIN Inactive SYMBICORT 160-4.5 MCG/ACT INHALATION AEROSOL 2 puffs bid wit h rinse after SYMBICORT 160-4.5 MCG/ACT INHALATION AEROSOL BUDESONIDE- FORMOTEROL FUMARATE Inactive PROMETHAZINE-CODEINE 6.25-10 MG/5ML ORAL SYRUP 1 tsp b y mouth every 8 hours prn cough PROMETHAZINE-CODEINE 6.25-10 MG/ 5ML ORAL SYRUP 002463 PROMETHAZINE-CODEINE Inactive CYMBALTA 30 MG ORAL CAPSULE DELAYED RELEASE PARTICLES 1 cap by mouth daily CYMBALTA 30 MG ORAL CAPSULE DELAYED RELE ASE PARTICLES 082971 DULOXETINE HCL Inactive PREMARIN 0.625 MG ORAL TABLET TAKE 1 TAB BY MOUTH DAILY PREMARIN 0.625 MG ORAL TABLET ESTROGENS CONJUGATED Inactive CHERATUSSIN AC 100-10 MG/5ML ORAL SYRUP 1 tsp by mouth every 4 hours as needed for cough CHERATUSSIN AC 100-10 MG/5ML ORAL SYRUP 9 94356 GUAIFENESIN-CODEINE Inactive PROMETHAZINE-CODEINE 6.25-10 MG/5ML ORAL SYRUP 1 tsp b y mouth every 6 hours if needed for cough PROMETHAZINE-CODEINE 6.25-10 MG/5ML ORAL SYRUP 026516 PROMETHAZINE-CODEINE Inactive CHERATUSSIN AC 100-10 MG/5ML ORAL SYRUP 1 tsp by mouth every 4 hours as needed for cough CHERATUSSIN AC 100-10 MG/5ML ORAL SYRUP 9 18492 GUAIFENESIN-CODEINE Inactive FLUTICASONE PROPIONATE 50 MCG/ACT NASAL SUSPENSION 1 t o 2 sprays each nostril daily FLUTICASONE PROPIONATE 50 MCG/AC T NASAL SUSPENSION 7721065 FLUTICASONE PROPIONATE Inactive PREDNISONE 20 MG ORAL TABLET 3 tab PO qd x 2d, 2 tab P O qd x 2d, 1 tab PO qd x 2d, 1/2 tab PO qd x 2d PREDNISONE 20 MG ORAL TAB LET 448837 PREDNISONE Inactive LEVOFLOXACIN 500 MG ORAL TABLET 1 tab PO daily x 10 days LEVOFLOXACIN 500 MG ORAL TABLET 791607 LEVOFLOXACIN Inactive CYCLOBENZAPRINE HCL 10 MG ORAL TABLET 1 tablet by mouth BID prn had pain CYCLOBENZAPRINE HCL 10 MG ORAL TABLET 230336 CYCLOBENZAPRINE HCL Inactive ZOCOR 40 MG ORAL TABLET 1 tab by mouth daily 4 ZOCOR 40 MG ORAL TABLET 225239 SIMVASTATIN Inactive TUSSIONEX PENNKINETIC ER 10-8 MG/5ML [...] FLUTICASONE PROPIO EFE 50 MCG/ACT NASAL SUSPENSION 5550540 FLUTICASONE PROPIONATE Inactive TUSSIONEX PENNKINETIC ER 10-8 [...] three days PREDNISONE 20 MG ORAL TABLET 719348 PREDNIS ONE Inactive PROAIR HFA 108 (90 BASE) MCG/ACT INHALATION AEROSOL SO LUTION 2 puffs four times a day as needed PROAIR HFA 108 (90 B ASE) MCG/ACT INHALATION AEROSOL SOLUTION ALBUTEROL SULFATE Inactive PREDNISONE 20 MG ORAL TABLET two tabs by mouth today, then one tab by mouth days two and three and four PREDNISONE 20 MG ORAL TAB LET 415941 PREDNISONE Inactive TUSSIONEX PENNKINETIC ER 10-8 MG/5ML [...] bid 04/20 TOPAMAX 100 MG ORAL TABLET 998201 TOPIRAMATE Inactive CYMBALTA 30 MG ORAL CAPSULE DELAYED RELEASE PARTICLES 1 cap by mouth daily for depression CYMBALTA 30 MG ORAL CAPSULE DELAYED RELEASE PARTICLES 994488 DULOXETINE HCL Inactive ZITHROMAX Z-REYNA 250 MG ORAL TABLET 2 today, then 1 daily for 4 d ays ZITHROMAX Z-REYNA 250 MG ORAL TABLET 662517 AZITHROMYCIN Inactive CEFDINIR 300 MG ORAL CAPSULE by mouth twice a day 2010 CEFDINIR 300 MG ORAL CAPSULE 231007 CEFDINIR Inactive CEFDINIR 300 MG ORAL CAPSULE by mouth twice a day 2010 CEFDINIR 300 MG ORAL CAPSULE 856444 CEFDINIR Inactive CEFDINIR 300 MG ORAL CAPSULE by mouth twice a day 2010 CEFDINIR 300 MG ORAL CAPSULE 966875 CEFDINIR Inactive CEFDINIR 300 MG ORAL CAPSULE by mouth twice a day 2011 CEFDINIR 300 MG ORAL CAPSULE 424358 CEFDINIR Inactive ZITHROMAX 250 MG ORAL TABLET 2 po today, then 1 po q days 2-5 20 03/07/07 ZITHROMAX 250 MG ORAL TABLET 063613 AZITHROMYCIN [place] ctive CEFDINIR 300 MG ORAL CAPSULE by mouth twice a day 2011 CEFDINIR 300 MG ORAL CAPSULE 391382 CEFDINIR Inactive PREDNISONE 20 MG ORAL TABLET 2 tabs daily for 3 days, 1 tab daily for 3 days, 1/2 tab daily for 2 days PREDNISONE 20 MG ORAL T ABLET 664252 PREDNISONE Inactive AVELOX 400 MG ORAL TABLET 1 tab by mouth daily AVELOX 400 MG ORAL TABLET 113359 MOXIFLOXACIN HCL Inactive AVELOX 400 MG ORAL TABLET 1 tab by mouth daily AVELOX 400 MG ORAL TABLET 879843 MOXIFLOXACIN HCL Inactive PREDNISONE 20 MG ORAL TABLET Take 3 tabs daily for 3 d ays, 2 tabs daily for 3 days, 1 tab daily for 3 days, 1/2 tab daily for 3 days 11/07 PREDNISONE 20 MG ORAL TABLET 753069 PREDNISONE Inactive LEVAQUIN 500 MG ORAL TABLET take one po QD LEVAQUIN 500 MG ORAL TABLET 024000 LEVOFLOXACIN Inactive AZITHROMYCIN 250 MG ORAL TABLET 2 po qd x 1 day, then 1 po q d x 4 days AZITHROMYCIN 250 MG ORAL TABLET 392718 AZITHROMY GIOVANNI Inactive MEDROL 4 MG ORAL TABLET THERAPY PACK 6 tabs on day 1, 5 tabs on day 2, 4 tabs on day 3, 3 tabs on day 4, 2 tabs on day 5, 1 tab on day 6 2013 MEDROL 4 MG ORAL TABLET THERAPY PACK 971876 METHYLPREDNISOLONE [place] ctive CHERATUSSIN AC 100-10 MG/5ML ORAL SYRUP 5ml po q6hr PRN Cough 20 13/04/14 CHERATUSSIN AC 100-10 MG/5ML ORAL SYRUP 774907 GUAIFENE SIN-CODEINE Inactive TRIAMCINOLONE ACETONIDE 0.1 % EXTERNAL CREAM apply three roger es daily prn rash TRIAMCINOLONE ACETONIDE 0.1 % EXTERNAL CREAM 101 4314 TRIAMCINOLONE ACETONIDE Inactive AZITHROMYCIN 250 MG ORAL TABLET 2 po qd x 1 day, then 1 po q d x 4 days AZITHROMYCIN 250 MG ORAL TABLET 074440 AZITHROMY GIOVANNI Inactive MEDROL 4 MG ORAL TABLET THERAPY PACK 6 pills x 1 day, then 5 pills x 1 day then 4 pills x 1 day, then 3 pills x 1 day, then 2 pills x 1 day, then 1 pill x 1 day, then stop MEDROL 4 MG ORAL TABLET THERAPY PACK 742286 METHYLPREDNISOLONE Inactive AMOXICILLIN 500 MG ORAL CAPSULE 1 tab by mouth 3 times daily x 10 days AMOXICILLIN 500 MG ORAL CAPSULE 559047 AMOXICILL IN Inactive AMOXICILLIN 500 MG ORAL CAPSULE 1 tab by mouth 3 times daily x 10 days AMOXICILLIN 500 MG ORAL CAPSULE 134631 AMOXICILL IN Inactive ZITHROMAX 250 MG ORAL TABLET 2 po today, then 1 po q days 2-5 20 12/08/14 ZITHROMAX 250 MG ORAL TABLET 812076 AZITHROMYCIN Greer ctive AUGMENTIN 875-125 MG ORAL TABLET 1 po BID x 10 days 20 13/01/20 AUGMENTIN 875-125 MG ORAL TABLET 302241 AMOXICILLIN-POT CLAVULANATE Inactive ZITHROMAX Z-REYNA 250 MG ORAL TABLET 2 today, then 1 daily for 4 d ays ZITHROMAX Z-REYNA 250 MG ORAL TABLET 212022 AZITHROMYCIN Inactive ZITHROMAX 250 MG ORAL TABLET 2 po today, then 1 po q days 2-5 20 14/03/21 ZITHROMAX 250 MG ORAL TABLET 648282 AZITHROMYCIN [place] ctive ZITHROMAX Z-REYNA 250 MG ORAL TABLET 2 today, then 1 daily for 4 d ays ZITHROMAX Z-REYNA 250 MG ORAL TABLET 514035 AZITHROMYCIN Inactive CEFDINIR 300 MG ORAL CAPSULE 1 po BID x 10 days 06/21 CEFDINIR 300 MG ORAL CAPSULE 881036 CEFDINIR Inactive ZITHROMAX 250 MG ORAL TABLET 2 po today, then 1 po q days 2-5 20 13/08/10 ZITHROMAX 250 MG ORAL TABLET 962038 AZITHROMYCIN [place] [facility] LEVAQUIN 500 MG ORAL TABLET 1 tablet by mouth daily 13/09/24 LEVAQUIN 500 MG ORAL TABLET 322579 LEVOFLOXACIN Inactive SINGULAIR 10 MG ORAL TABLET 1 po qday for allergies 20 14/01/12 SINGULAIR 10 MG ORAL TABLET 20010504 MONTELUKAST SODIUM Inactive AMOXICILLIN 500 MG ORAL CAPSULE 2 po BID x 10 days 201 09/29/08 AMOXICILLIN 500 MG ORAL CAPSULE 153087 AMOXICILLIN Inactive PREDNISONE 20 MG ORAL TABLET 2 tabs daily for 3 days, 1 tab daily for 3 days, 1/2 tab daily for 2 days PREDNISONE 20 MG ORAL T ABLET 124754 PREDNISONE Inactive ZITHROMAX Z-REYNA 250 MG ORAL TABLET 2 today, then 1 daily for 4 d ays ZITHROMAX Z-REYNA 250 MG ORAL TABLET 693823 AZITHROMYCIN Inactive PREDNISONE 20 MG ORAL TABLET 2 tabs daily for 3 days, 1 tab daily for 3 days, 1/2 tab daily for 2 days PREDNISONE 20 MG ORAL T ABLET 373071 PREDNISONE Inactive ZITHROMAX 250 MG ORAL TABLET 2 po today, then 1 po q days 2-5 20 14/09/04 ZITHROMAX 250 MG ORAL TABLET 680693 AZITHROMYCIN [facility] AMOXICILLIN 500 MG ORAL CAPSULE 1 cap by mouth three times a day AMOXICILLIN 500 MG ORAL CAPSULE 853947 AMOXICILLIN Inactive TERBINAFINE HCL 250 MG ORAL TABLET 1 qDay for nail fungus 7 TERBINAFINE HCL 250 MG ORAL TABLET 830664 TERBINAFINE HCL Inact nael AUGMENTIN 875-125 MG ORAL TABLET 1 po BID x 10 days 16/03/22 AUGMENTIN 875-125 MG ORAL TABLET 876189 AMOXICILLIN-POT CLAVULANATE Inactive PREDNISONE 20 MG ORAL TABLET 2 po qd x 5 days PREDNISONE 20 MG ORAL TABLET 277279 PREDNISONE Inactive AZITHROMYCIN 250 MG ORAL TABLET 2 po qd x 1 day, then 1 po q d x 4 days AZITHROMYCIN 250 MG ORAL TABLET 379815 AZITHROMY GIOVANNI Inactive PREDNISONE 50 MG ORAL TABLET Take 50 mg dialy for 6 day s 7 PREDNISONE 50 MG ORAL TABLET 845397 PREDNISONE Inactive AUGMENTIN 875-125 MG ORAL TABLET 1 po BID x 10 days 18/04/16 AUGMENTIN 875-125 MG ORAL TABLET 095744 AMOXICILLIN-POT CLAVULANATE Inactive DOXYCYCLINE HYCLATE 100 MG ORAL CAPSULE 1 cap by mouth twice latasha ly DOXYCYCLINE HYCLATE 100 MG ORAL CAPSULE 5427431 DOXYCYCL INE HYCLATE Inactive PREDNISONE 20 MG ORAL TABLET Take 2 tabs day 1 and 2 and 1 t ab days 3 and 4 PREDNISONE 20 MG ORAL TABLET 938356 PREDNISONE Inactive Vital Signs Date Name Value [...] - Chem istry sodium, serum 139 mmol/L 886-558 9713/03/19 potassium, serum 3.6 mmol/L 3.5-5.2 chloride, serum 100 mmol/L 98-107 carbon dioxide, venous blood 30.3 mmol/L 21.0-32 .0 blood glucose 101 mg/dL 65-110 calcium, serum 9.4 mg/dL 8.5-10.1 urea nitrogen, blood 10 mg/dL 7-18 creatinine, serum 0.96 mg/dL 0.60-1.30 sodium, serum 139 mmol/L 326-162 8659/10/12 potassium, serum 3.8 mmol/L 3.5-5.2 chloride, serum 102 mmol/L 98-107 carbon dioxide, venous blood 29.4 mmol/L 21.0-32 .0 blood glucose 103 mg/dL 65-95 calcium, serum 8.8 mg/dL 8.5-10.1 urea nitrogen, blood 10 mg/dL 7-18 creatinine, serum 0.97 mg/dL 0.60-1.30 Estimated Glomerular Filtration Rate (calc) 62 (?) mL/min/1.73m2 = OR > 60 mL/min Encounters Code Encounter Date Provider Facility CPT-23254 [id number] Vst-Est Level IV 08:41:[address] Carlton Hu MD [facility] CPT-81402 Level 3 Est. Patient 09:46:49 [employer] David lion APRN [facility] CPT-99766 [id number] Vst-Est Level III 11:12:16 CDT Yanet Bess DO [facility] CPT-23164 Level 3 Est. Patient 11:34:49 [employer] Perez Mora MD [facility] CPT-21453 Level 4 Est. Patient 09:51:32 [employer] Carlton rich MD [facility] CPT-25283 Level 3 Est. Patient 10:26:00 [employer] Elise Are ll [facility] CPT-94444 Level 3 Est. Patient 13:35:41 [employer] Carlton rich MD [facility] CPT-24487 Level 3 Est. Patient 10:03:52 [employer] Carlton rich MD [facility] CPT-93941 Level 3 Est. Patient 12:17:50 CDT Hugo Restrepo MD [facility] CPT-86395 Level 3 Est. Patient 13:42:38 CDT Elise Are ll [facility] CPT-32504 Level 3 Est. Patient 13:23:51 CDT Diya cobian [facility] CPT-92794 Level 3 Est. Patient 14:22:19 [employer] Diya cobian [facility] CPT-82243 Level 3 Est. Patient 10:11:46 CDT Carlton rich MD [facility] CPT-28730 Level 3 Est. Patient 17:29:43 CDT Elise Are [facility] CPT-67766 Level 3 Est. Patient 11:58:06 CDT Elise Are [facility] CPT-73094 Level 4 Est. Patient 14:36:51 CDT Carlton rich MD [facility] CPT-52410 Level 3 Est. Patient 18:16:00 [employer] Blaine HERNANDEZ [facility] CPT-76069 Level 3 Est. Patient 09:45:49 [employer] Carlton rich MD [facility] CPT-69755 Level 3 Est. Patient 13:19:20 CDT Carlton rich MD [facility] CPT-65744 Level 3 Est. Patient 13:06:43 CDT Ridge tam DO [facility] CPT-80991 Level 3 Est. Patient 10:03:07 CDT Perez Mora MD [facility] CPT-86884 Level 3 Est. Patient 19:50:35 [employer] Carlton rich MD [facility]-26146 Level 4 Est. Patient 18:05:01 [employer] Carlton rich MD [facility]-21883 Level 3 Est. Patient 10:45:55 [employer] Hugo Restrepo MD [facility]-72126 Level 3 Est. Patient 14:12:49 CDT Griffin HERNANDEZ [facility]-12043 Level 3 Est. Patient 17:37:24 CDT Carlton rcih MD [facility]-91479 Level 3 Est. Patient 16:51:54 CDT Carlton rich MD [facility]-02855 Level 3 Est. Patient 12:18:11 CDT Hugo Restrepo MD [facility] CPT-90735 Level 3 Est. Patient 11:30:25 CDT Marcy crisostomo MD PhD [facility]-33459 Level 3 Est. Patient 12:00:47 [employer] Carlton rich MD [facility]-03204 Level 3 Est. Patient 16:31:06 [employer] Carlton rich MD [facility] CPT-72434 Level 3 Est. Patient 16:23:24 [employer] Ridge tam DO [facility] CPT-12538 Level 3 Est. Patient 12:34:12 CDT Carlton rich MD [facility]-27767 Level 2 Est. Patient 15:43:33 CDT Robi armstrong MD [facility]-70359 Level 4 Est. Patient 14:04:44 CDT Carlton rich MD [facility] CPT-54081 Level 3 Est. Patient 05:47:59 CDT Ridge tam DO [facility] CPT-80131 Level 3 Est. Patient 13:12:53 [employer] Carlton rich MD [facility] CPT-80311 Level 3 Est. Patient 14:26:53 CDT Hugo [...] CPT-J1100 Decadron 6mg (Dexamethasone) 14:32:13 CDT 2 CPT-12852 Hip bilat min 2V w AP pelvis 13:16:20 CDT 2 CPT-27083 Pelvis only 13:07:33 CDT CPT-20160 Spec Collection and Handling Fee 11:25:12 C DT CPT-24242 Fluzone Quadrivalent Intramuscular Suspe nsion 0.5 ML 14:31:55 CDT CPT-21022 Abx/Therapy Injection 13:28:47 [employer] CPT-J2930 Solu Medrol 125 mg (Methyl Prednisolone Sodium Succinate) 12:00:47 [employer] CPT-20815 Venipuncture Draw Fee 11:33:31 CDT CPT-82801 EKG Trac and Interp 11:21:09 CDT CPT-87952 Chest 2V Frontal and Lat 11:21:09 CDT 12/15 CPT-42949 Venipuncture Draw Fee 08:02:34 CDT CPT-81915 Chest 2V Frontal and Lat 05:47:59 CDT 06/05
--- OUTSIDE RECORDS SUMMARY | 2019-10-08 09:13 | XMS REPORT | Clinical Summary ---
Author Author Caitlin, Juliana Martinez Organization [employer] [facility] Address Unknown Phone Unavailable Allergies, Adverse [...] URI 465.9 Inactive Ridge Bess DO [place] upper respiratory infections of unspecified site [...] po q12hr PRN Cough HYDROCOD POLST-CHLORPHEN POLST 53175373290 Active David Marianne CONSTRUCTION REP Active PREDNISONE 20 MG ORAL TABLET Take 2 tabs day 1 and 2 and 1 t ab days 3 and 4 PREDNISONE 92544736089 No Longer Active Davdi Marianne CONSTRUCTION REP Active DOXYCYCLINE HYCLATE 100 MG ORAL CAPSULE 1 cap by mouth twice latasha ly DOXYCYCLINE HYCLATE 03166488513 No Longer Active David Marianne CONSTRUCTION REP Active TOPAMAX 100 MG ORAL TABLET Take 1 tablet po bid TOPIRAMATE 59083001359 No Longer Active David Marianne CONSTRUCTION REP Active TUSSIONEX PENNKINETIC ER 10-8 MG/5ML ORAL SUSPENSION E XTENDED RELEASE 5ml po q12hr PRN Cough HYDROCOD POLST-CHLORPHEN POLST 5 4808708763 No Longer Active David Marianne CONSTRUCTION REP Active AUGMENTIN 875-125 MG ORAL TABLET 1 po BID x 10 days 20 18/04/16 AMOXICILLIN-POT CLAVULANATE 04079879275 No Longer Active David Marianne CONSTRUCTION REP Active PREDNISONE 50 MG ORAL TABLET Take 50 mg dialy for 6 day s 7 PREDNISONE 76890028457 No Longer Active David Lopes APRN Active TUSSIONEX PENNKINETIC ER 10-8 MG/5ML ORAL SUSPENSION E XTENDED RELEASE 5ml po q12hr PRN Cough HYDROCOD POLST-CHLORPHEN POLST 5 1049319190 No Longer Active Cherelle Torres RN Active PREDNISONE 20 MG ORAL TABLET two tabs by mouth today, then one tab by mouth days two and three and four PREDNISONE 64489047988 No Lo nger Active Cherelle Torres RN Active AZITHROMYCIN 250 MG ORAL TABLET 2 po qd x 1 day, then 1 po q d x 4 days AZITHROMYCIN 07411592439 No Longer Active Ridge Bess DO Active PREDNISONE 20 MG ORAL TABLET 2 po qd x 5 days P REDNISONE 57412983171 No Longer Active Perez Mora MD Active PROAIR HFA 108 (90 BASE) MCG/ACT INHALATION AEROSOL SO LUTION 2 puffs four times a day as needed ALBUTEROL SULFATE 33500634097 No Long er Active Becky AGUILARA Active ASPIRIN 81 MG ORAL TABLET 1 po qd ASPIRIN 94203514266 Active Carlton Hu MD Active PREDNISONE 20 MG ORAL TABLET 1 tab twice daily for 3 d ay, then one daily for three days PREDNISONE 07646317274 No Longer Active Carlton Hu MD Active AUGMENTIN 875-125 MG ORAL TABLET 1 po BID x 10 days 20 16/03/22 AMOXICILLIN-POT CLAVULANATE 53244995082 No Longer Active Elise Garcia APRN Active TERBINAFINE HCL 250 MG ORAL TABLET 1 qDay for nail fungus 7 TERBINAFINE HCL 21688149942 No Longer Active Carlton Hu MD A ctive AMOXICILLIN 500 MG ORAL CAPSULE 1 cap by mouth three times a day AMOXICILLIN 27237484370 No Longer Active Carlton Hu MD Active ELMIRON 100 MG ORAL CAPSULE 2 tablets in the am and 1 tablet at hs PENTOSAN POLYSULFATE SODIUM 38837108186 No Longer Active Robert Hu MD Active MUCINEX D 60-600 MG ORAL TABLET EXTENDED RELEASE 12 HOUR 1 t ab po q am PSEUDOEPHEDRINE-GUAIFENESIN 55624345607 No Longer Act nael Carlton Hu MD Active MUCINEX DM MAXIMUM STRENGTH 60-1200 MG ORAL TABLET EXT ENDED RELEASE 12 HOUR 1 tab po q am DEXTROMETHORPHAN-GUAIFENESIN 23542736351 No Longer Active Carlton Hu MD Active TUSSIONEX PENNKINETIC ER 10-8 MG/5ML ORAL SUSPENSION E XTENDED RELEASE 5ml po q12hr PRN Cough HYDROCOD POLST-CHLORPHEN POLST 5 3835337741 No Longer Active Carlton Hu MD Active POTASSIUM CHLORIDE ER 20 MEQ ORAL TABLET EXTENDED RELE ASE Take 1 by mouth 4 times daily for 7 days POTASSIUM CHLORIDE 48526551403 No Longer Active Carlton Hu MD Active ZITHROMAX 250 MG ORAL TABLET 2 po today, then 1 po q days 2-5 14/09/04 AZITHROMYCIN 60011967098 No Longer Active Elise Garcia APRN Active TUSSIONEX PENNKINETIC ER 10-8 MG/5ML ORAL SUSPENSION E XTENDED RELEASE 5 ml twice a day as needed for cough HYDROCOD POLST-CHLORPH EN POLST 88515685145 No Longer Active Elise Garcia APRN Active MONTELUKAST SODIUM 10 MG ORAL TABLET 1 po daily for Allergy MONTELUKAST SODIUM 22439829679 Active ALFREDO Holly Act nael TUSSIONEX PENNKINETIC ER 10-8 MG/5ML ORAL SUSPENSION E XTENDED RELEASE 5ml po q12hr PRN Cough HYDROCOD POLST-CHLORPHEN POLST 5 0411028217 No Longer Active Hugo Restrepo MD Active GABAPENTIN 100 MG ORAL CAPSULE 1 po BID for fibromyalgia GABAPENTIN 23673790531 Active Carlton Hu MD Active LYRICA 100 MG ORAL CAPSULE Take 1 tab po BID for fibromyalgia 20 11/08/21 PREGABALIN 71847269645 No Longer Active Elise Garcia APRN A ctive PREDNISONE 20 MG ORAL TABLET 2 tabs daily for 3 days, 1 tab daily for 3 days, 1/2 tab daily for 2 days PREDNISONE 93859585901 No Longer Active Venullina Cesarl CONSTRUCTION REP Active TUSSIONEX PENNKINETIC ER 10-8 MG/5ML ORAL SUSPENSION E XTENDED RELEASE 5 mL PO q 12 hrs PRN cough HYDROCOD POLST-CHLORPHEN POLST 332030 89392 No Longer Active Jillina Frakerriel CONSTRUCTION REP Active FLUTICASONE PROPIONATE 50 MCG/ACT NASAL SUSPENSION 2 s prays each nostril daily until bottle is empty FLUTICASONE PROPIONATE 417605184 99 No Longer Active Jillina Frazell CONSTRUCTION REP Active ASMANEX 60 METERED DOSES 220 MCG/INH INHALATION AEROSO L POWDER BREATH ACTIVATED 1 puff bid with rinse after MOMETASONE FUROATE 2786768 4102 No Longer Active Jillina Cesarl CONSTRUCTION REP Active ZITHROMAX Z-REYNA 250 MG ORAL TABLET 2 today, then 1 daily for 4 d ays AZITHROMYCIN 83204739648 No Longer Active Elise Garcia CONSTRUCTION REP Active TUSSIONEX PENNKINETIC ER 10-8 MG/5ML ORAL SUSPENSION E XTENDED RELEASE 5ml po q12hr PRN Cough HYDROCOD POLST-CHLORPHEN POLST 5 6599356629 No Longer Active Elise Garcia APRN Active PREDNISONE 20 MG ORAL TABLET 2 tabs daily for 3 days, 1 tab daily for 3 days, 1/2 tab daily for 2 days PREDNISONE 82769367641 No Longer Active Jillina Cesarl CONSTRUCTION REP Active AMOXICILLIN 500 MG ORAL CAPSULE 2 po BID x 10 days 201 09/29/08 AMOXICILLIN 51530798573 No Longer Active Jillina Cesarl CONSTRUCTION REP Act nael SINGULAIR 10 MG ORAL TABLET 1 po qday for allergies 20 14/01/12 MONTELUKAST SODIUM 47784120942 No Longer Active Carlton Hu MD Active LEVAQUIN 500 MG ORAL TABLET 1 tablet by mouth daily 13/09/24 LEVOFLOXACIN 01072724479 No Longer Active Carlton Hu MD Acti ve FLUTICASONE PROPIONATE 50 MCG/ACT NASAL SUSPENSION 2 s prays each nostril daily for 2 weeks, then 1 spray each nostril daily. FLUTICASONE PROPIONATE 67448120982 Active ALFREDO Holly Active ZITHROMAX 250 MG ORAL TABLET 2 po today, then 1 po q days 2-5 20 13/08/10 AZITHROMYCIN 64675582676 No Longer Active Elise Garcia APRN Active XANAX 0.5 MG ORAL TABLET one tablet by mouth daily prn anxiety 2015 ALPRAZOLAM 67568321818 Active ALFREDO Holly Active CYMBALTA 30 MG ORAL CAPSULE DELAYED RELEASE PARTICLES 1 cap by mouth daily for depression DULOXETINE HCL 36525639960 Active ALFREDO Holly Active CEFDINIR 300 MG ORAL CAPSULE 1 po BID x 10 days CEFDINIR 07491056447 No Longer Active Carlton Hu MD Active ZOCOR 40 MG ORAL TABLET 1 tab by mouth daily SI MVASTATIN 70918026605 No Longer Active Carlton Hu MD Active CYCLOBENZAPRINE HCL 10 MG ORAL TABLET 1 tablet by mouth BID prn had pain CYCLOBENZAPRINE HCL 64040817412 No Longer Active Jayden Hu MD Active LEVOFLOXACIN 500 MG ORAL TABLET 1 tab PO daily x 10 days LEVOFLOXACIN 46993050476 No Longer Active Carlton Hu MD Acti ve PREDNISONE 20 MG ORAL TABLET 3 tab PO qd x 2d, 2 tab P O qd x 2d, 1 tab PO qd x 2d, 1/2 tab PO qd x 2d PREDNISONE 44141327822 No Lo nger Active Carlton Hu MD Active FLUTICASONE PROPIONATE 50 MCG/ACT NASAL SUSPENSION 1 t o 2 sprays each nostril daily FLUTICASONE PROPIONATE 36910509712 No Longer Ac tive Blaine HERNANDEZ Active CHERATUSSIN AC 100-10 MG/5ML ORAL SYRUP 1 tsp by mouth every 4 hours as needed for cough GUAIFENESIN-CODEINE 93313818678 No Longe r Active Blaine HERNANDEZ Active PROMETHAZINE-CODEINE 6.25-10 MG/5ML ORAL SYRUP 1 tsp b y mouth every 6 hours if needed for cough PROMETHAZINE-CODEINE 65861420043 No Longer Active Blaine HERNANDEZ Active CHERATUSSIN AC 100-10 MG/5ML ORAL SYRUP 1 tsp by mouth every 4 hours as needed for cough GUAIFENESIN-CODEINE 82788165704 No Longe r Active Blaine HERNANDEZ Active ZITHROMAX Z-REYNA 250 MG ORAL TABLET 2 today, then 1 daily for 4 d ays AZITHROMYCIN 76590785514 No Longer Active Columba Raida Act nael ZITHROMAX 250 MG ORAL TABLET 2 po today, then 1 po q days 2-5 20 14/03/21 AZITHROMYCIN 21549060175 No Longer Active Carlton Hu MD Active ZITHROMAX Z-REYNA 250 MG ORAL TABLET 2 today, then 1 daily for 4 d ays AZITHROMYCIN 30274891221 No Longer Active Columba Raida Act nael AUGMENTIN 875-125 MG ORAL TABLET 1 po BID x 10 days 13/01/20 AMOXICILLIN-POT CLAVULANATE 19538599645 No Longer Active Diya De Guzman APRN Active ZITHROMAX 250 MG ORAL TABLET 2 po today, then 1 po q days 2-5 20 12/08/14 AZITHROMYCIN 82313988603 No Longer Active Carlton Hu MD Active TRAMADOL HCL 50 MG ORAL TABLET 1 po tid with ES Tylenol TRAMADOL HCL 75822315943 Active Adrienne Galvez AQUATIC PERFORMER Active PREMARIN 0.625 MG ORAL TABLET TAKE 1 TAB BY MOUTH DAILY ESTROGENS CONJUGATED 52126703158 No Longer Active Ridge Bess DO A ctive CYMBALTA 30 MG ORAL CAPSULE DELAYED RELEASE PARTICLES 1 cap by mouth daily DULOXETINE HCL 59549771280 No Longer Active Ridge Ya ee DO Active AMOXICILLIN 500 MG ORAL CAPSULE 1 tab by mouth 3 times daily x 10 days AMOXICILLIN 71475238162 No Longer Active Carlton bustamante MD Active AMOXICILLIN 500 MG ORAL CAPSULE 1 tab by mouth 3 times daily x 10 days AMOXICILLIN 61620605723 No Longer Active Carlton bustamante MD Active PROMETHAZINE-CODEINE 6.25-10 MG/5ML ORAL SYRUP 1 tsp b y mouth every 8 hours prn cough PROMETHAZINE-CODEINE 95086626419 No Longer Acti ve Carlton Hu MD Active MEDROL 4 MG ORAL TABLET THERAPY PACK 6 pills x 1 day, then 5 pills x 1 day then 4 pills x 1 day, then 3 pills x 1 day, then 2 pills x 1 day, then 1 pill x 1 day, then stop METHYLPREDNISOLONE 07684904384 No Long er Active Perez Mora MD Active AZITHROMYCIN 250 MG ORAL TABLET 2 po qd x 1 day, then 1 po q d x 4 days AZITHROMYCIN 66625761981 No Longer Active Perez Ambriz MD Active SYMBICORT 160-4.5 MCG/ACT INHALATION AEROSOL 2 puffs bid wit h rinse after BUDESONIDE-FORMOTEROL FUMARATE 56770462963 N o Longer Active Perez Mora MD Active LYRICA 75 MG ORAL CAPSULE TAKE 1 CAPSULE BY MOUTH TWICE DAILY PREGABALIN 66671417724 No Longer Active Carlton Hu MD Acti ve TOPAMAX 25 MG ORAL TABLET 1 qHS x 1 week, then 1 BID x 1 week, then 1 qAM and 2 qHS x 1 week, then 2 BID (migraine prevention) T OPIRAMATE 53059919689 No Longer Active Jerica FUENTES Active TOPAMAX 50 MG ORAL TABLET take 1 tab po BID for migraines. 07/02 TOPIRAMATE 22567787517 No Longer Active Jerica FUENTES Active TRIAMCINOLONE ACETONIDE 0.1 % EXTERNAL CREAM apply three roger es daily prn rash TRIAMCINOLONE ACETONIDE 29854635364 No Longer Active Carlton Hu MD Active PAXIL 40 MG ORAL TABLET take 1 tab po qday for depression 0 PAROXETINE HCL 99388563689 Active ALFREDO Holly Active CHERATUSSIN AC 100-10 MG/5ML ORAL SYRUP 5ml po q6hr PRN Cough 20 13/04/14 GUAIFENESIN-CODEINE 04774230222 No Longer Active Carlton Hu MD Active MEDROL 4 MG ORAL TABLET THERAPY PACK 6 tabs on day 1, 5 tabs on day 2, 4 tabs on day 3, 3 tabs on day 4, 2 tabs on day 5, 1 tab on day 6 2013 METHYLPREDNISOLONE 01599745299 No Longer Active Perez Mora MD Active AZITHROMYCIN 250 MG ORAL TABLET 2 po qd x 1 day, then 1 po q d x 4 days AZITHROMYCIN 32450777815 No Longer Active Perez Ambriz MD Active PROPRANOLOL HCL 60 MG ORAL TABLET 1 PO Q D PROPRANOLOL HCL 02458260418 No Longer Active Perez Mora MD Activ e CHERATUSSIN AC 100-10 MG/5ML ORAL SYRUP take one tsp po Q 6h ours prn cough GUAIFENESIN-CODEINE 22810418442 No Longer Active Zia Mora MD Active AUGMENTIN 875-125 MG ORAL TABLET 1 tab by mouth twice daily with food AMOXICILLIN-POT CLAVULANATE 26234764465 No Longer Act nael Perez Mora MD Active CHERATUSSIN AC 100-10 MG/5ML ORAL SYRUP 1 tsp by mouth every 4 hours as needed for cough GUAIFENESIN-CODEINE 68523044298 No Longe r Active Hugo Restrepo MD Active ACETAMINOPHEN-CODEINE #3 300-30 MG ORAL TABLET 1 PO Q 4-6 HRS AL N PAIN ACETAMINOPHEN-CODEINE 42919126767 No Longer Active Hugo Restrepo MD Active LEVAQUIN 500 MG ORAL TABLET take one po QD LEVO FLOXACIN 77141401920 No Longer Active Griffin HERNANDEZ Active PREDNISONE 20 MG ORAL TABLET Take 3 tabs daily for 3 d ays, 2 tabs daily for 3 days, 1 tab daily for 3 days, 1/2 tab daily for 3 days 11/07 PREDNISONE 11815907641 No Longer Active Carlton Hu MD Acti ve AVELOX 400 MG ORAL TABLET 1 tab by mouth daily MOXIFLOXACIN HCL 16344113814 No Longer Active Carlton Hu MD Active CHERATUSSIN AC 100-10 MG/5ML ORAL SYRUP 1 tsp by mouth every 4 hours as needed for cough GUAIFENESIN-CODEINE 25479599662 No Longe r Active Hugo Restrepo MD Active AVELOX 400 MG ORAL TABLET 1 tab by mouth daily MOXIFLOXACIN HCL 30319962464 No Longer Active Marcy De La Rosa MD PhD Active TERBINAFINE HCL 250 MG ORAL TABLET 1 qDay T ERBINAFINE HCL 02253810481 No Longer Active Marcy De La Rosa MD PhD Active CHERATUSSIN AC 100-10 MG/5ML ORAL SYRUP 1 tsp by mouth every 4 hours as needed for cough GUAIFENESIN-CODEINE 57706051045 No Longe r Active Marcy De La Rosa MD PhD Active AVELOX 400 MG ORAL TABLET 1 tab by mouth daily MOXIFLOXACIN HCL 18121331816 No Longer Active Marcy De La Rosa MD PhD Active HYDROCODONE-ACETAMINOPHEN 5-325 MG ORAL TABLET 1 po q 6hr PRN co ugh HYDROCODONE-ACETAMINOPHEN 69766947967 No Longer Active Marcy De La Rosa MD PhD Active PREDNISONE 20 MG ORAL TABLET 2 tabs daily for 3 days, 1 tab daily for 3 days, 1/2 tab daily for 2 days PREDNISONE 86952533069 No Longer Active Carlton Hu MD Active CEFDINIR 300 MG ORAL CAPSULE by mouth twice a day 2011 CEFDINIR 62396017108 No Longer Active Carlton Hu MD Acti ve HYDROCHLOROTHIAZIDE 25 MG ORAL TABLET 1 TAB PO DAILY HYDROCHLOROTHIAZIDE 07014737939 Active ALFREDO Holly Ac tive ACETAMINOPHEN-CODEINE #3 300-30 MG ORAL TABLET 1 tablet po q 4-6 hrs prn pain ACETAMINOPHEN-CODEINE 20461714583 No Longer Active Ridge Bess DO Active ZITHROMAX 250 MG ORAL TABLET 2 po today, then 1 po q days 2-5 20 03/07/07 AZITHROMYCIN 29634910455 No Longer Active Carlton Hu MD Active CHERATUSSIN AC 100-10 MG/5ML ORAL SYRUP take 1 tsp po q4-6 h ours prn cough GUAIFENESIN-CODEINE 27955071100 No Longer Active Jayden Hu MD Active ACETAMINOPHEN-CODEINE #3 300-30 MG ORAL TABLET 1 PO Q 4-6 HR PRN PAIN ACETAMINOPHEN-CODEINE 66890691064 No Longer Active Da raimundo Hu MD Active LORTAB 7.5-500 MG/15ML ORAL ELIXIR 7.5 ml po q 4 hour prn cough HYDROCODONE-ACETAMINOPHEN 19075503635 No Longer Active Carlton Hu MD Active PREDNISONE 20 MG ORAL TABLET 1 po bid 3 days, then 1 po q day 3 days PREDNISONE 37405520204 No Longer Active Carlton Hu MD Active CEFDINIR 300 MG ORAL CAPSULE by mouth twice a day 2011 CEFDINIR 09289247591 No Longer Active Carlton Hu MD Acti ve CEFDINIR 300 MG ORAL CAPSULE by mouth twice a day 2010 CEFDINIR 58714528613 No Longer Active Carlton Hu MD Acti ve CEFDINIR 300 MG ORAL CAPSULE by mouth twice a day 2010 CEFDINIR 07156596830 No Longer Active Carlton Hu MD Acti ve TESSALON PERLES 100 MG ORAL CAPSULE 1 tablet by mouth 3 times daily as needed for cough BENZONATATE 31854774086 No Longer Active Carlton Hu MD Active CEFDINIR 300 MG ORAL CAPSULE by mouth twice a day 2010 CEFDINIR 23826687803 No Longer Active Carlton Hu MD Acti ve ZITHROMAX Z-REYNA 250 MG ORAL TABLET 2 today, then 1 daily for 4 d ays AZITHROMYCIN 16106953196 No Longer Active Hugo Restrepo MD Active TESSALON PERLES 100 MG ORAL CAPSULE 1 tablet by mouth 3 times daily as needed for cough TESSALON PERLES 100 MG ORAL CAPSULE 38090 7 BENZONATATE Inactive PREDNISONE 20 MG ORAL TABLET 1 po bid 3 days, then 1 po q day 3 days PREDNISONE 20 MG ORAL TABLET 562385 PREDNISONE [place] ctive LORTAB 7.5-500 MG/15ML ORAL [...] cough CHERATUSSIN AC 100-10 MG/5ML ORAL SYRUP 463660 GUAIFENESIN-CODEINE Inactive ACETAMINOPHEN-CODEINE #3 300-30 MG ORAL TABLET 1 tablet po q 4-6 hrs prn pain ACETAMINOPHEN-CODEINE #3 300-30 MG ORAL TABLET ACETAMINOPHEN-CODEINE Inactive HYDROCODONE-ACETAMINOPHEN 5-325 MG ORAL TABLET 1 po q 6hr PRN co ugh HYDROCODONE-ACETAMINOPHEN 5-325 MG ORAL TABLET 528436 HYDROCODONE-ACETAMINOPHEN Inactive AVELOX 400 MG ORAL TABLET 1 tab by mouth daily AVELOX 400 MG ORAL TABLET 438180 MOXIFLOXACIN HCL Inactive CHERATUSSIN AC 100-10 MG/5ML ORAL SYRUP 1 tsp by mouth every 4 hours as needed for cough CHERATUSSIN AC 100-10 MG/5ML ORAL SYRUP 9 92141 GUAIFENESIN-CODEINE Inactive TERBINAFINE HCL 250 MG ORAL TABLET 1 qDay 07/08 TERBINAFINE HCL 250 MG ORAL TABLET 490263 TERBINAFINE HCL Inactive CHERATUSSIN AC 100-10 MG/5ML ORAL SYRUP 1 tsp by mouth every 4 hours as needed for cough CHERATUSSIN AC 100-10 MG/5ML ORAL SYRUP 9 19413 GUAIFENESIN-CODEINE Inactive ACETAMINOPHEN-CODEINE #3 300-30 MG ORAL TABLET 1 PO Q 4-6 HRS AL N PAIN ACETAMINOPHEN-CODEINE #3 300-30 MG ORAL TABLET ACETAMINOPHEN-CODEINE Inactive CHERATUSSIN AC 100-10 MG/5ML ORAL SYRUP 1 tsp by mouth every 4 hours as needed for cough CHERATUSSIN AC 100-10 MG/5ML ORAL SYRUP 9 16566 GUAIFENESIN-CODEINE Inactive AUGMENTIN 875-125 MG ORAL TABLET 1 tab by mouth twice daily with food AUGMENTIN 875-125 MG ORAL TABLET 880445 AMOXICIL MADELINE-POT CLAVULANATE Inactive CHERATUSSIN AC 100-10 MG/5ML ORAL SYRUP take one tsp po Q 6h ours prn cough CHERATUSSIN AC 100-10 MG/5ML ORAL SYRUP 229357 GUAIFENESIN-CODEINE Inactive PROPRANOLOL HCL 60 MG ORAL TABLET 1 PO Q D PROPRANOLOL HCL 60 MG ORAL TABLET 833924 PROPRANOLOL HCL Inactive TOPAMAX 50 MG ORAL TABLET take 1 tab po BID for migraines. 07/02 TOPAMAX 50 MG ORAL TABLET 292209 TOPIRAMATE Inacti ve TOPAMAX 25 MG ORAL TABLET 1 qHS x 1 week, then 1 BID x 1 week, then 1 qAM and 2 qHS x 1 week, then 2 BID (migraine prevention) TOPAMAX 25 MG ORAL TABLET 342874 TOPIRAMATE Inactive LYRICA 75 MG ORAL CAPSULE TAKE 1 CAPSULE BY MOUTH TWICE DAILY LYRICA 75 MG ORAL CAPSULE PREGABALIN Inactive SYMBICORT 160-4.5 MCG/ACT INHALATION AEROSOL 2 puffs bid wit h rinse after SYMBICORT 160-4.5 MCG/ACT INHALATION AEROSOL BUDESONIDE- FORMOTEROL FUMARATE Inactive PROMETHAZINE-CODEINE 6.25-10 MG/5ML ORAL SYRUP 1 tsp b y mouth every 8 hours prn cough PROMETHAZINE-CODEINE 6.25-10 MG/ 5ML ORAL SYRUP 990630 PROMETHAZINE-CODEINE Inactive CYMBALTA 30 MG ORAL CAPSULE DELAYED RELEASE PARTICLES 1 cap by mouth daily CYMBALTA 30 MG ORAL CAPSULE DELAYED RELE ASE PARTICLES 212758 DULOXETINE HCL Inactive PREMARIN 0.625 MG ORAL TABLET TAKE 1 TAB BY MOUTH DAILY PREMARIN 0.625 MG ORAL TABLET ESTROGENS CONJUGATED Inactive CHERATUSSIN AC 100-10 MG/5ML ORAL SYRUP 1 tsp by mouth every 4 hours as needed for cough CHERATUSSIN AC 100-10 MG/5ML ORAL SYRUP 9 45050 GUAIFENESIN-CODEINE Inactive PROMETHAZINE-CODEINE 6.25-10 MG/5ML ORAL SYRUP 1 tsp b y mouth every 6 hours if needed for cough PROMETHAZINE-CODEINE 6.25-10 MG/5ML ORAL SYRUP 171588 PROMETHAZINE-CODEINE Inactive CHERATUSSIN AC 100-10 MG/5ML ORAL SYRUP 1 tsp by mouth every 4 hours as needed for cough CHERATUSSIN AC 100-10 MG/5ML ORAL SYRUP 9 39592 GUAIFENESIN-CODEINE Inactive FLUTICASONE PROPIONATE 50 MCG/ACT NASAL SUSPENSION 1 t o 2 sprays each nostril daily FLUTICASONE PROPIONATE 50 MCG/AC T NASAL SUSPENSION 3366562 FLUTICASONE PROPIONATE Inactive PREDNISONE 20 MG ORAL TABLET 3 tab PO qd x 2d, 2 tab P O qd x 2d, 1 tab PO qd x 2d, 1/2 tab PO qd x 2d PREDNISONE 20 MG ORAL TAB LET 345940 PREDNISONE Inactive LEVOFLOXACIN 500 MG ORAL TABLET 1 tab PO daily x 10 days LEVOFLOXACIN 500 MG ORAL TABLET 265089 LEVOFLOXACIN Inactive CYCLOBENZAPRINE HCL 10 MG ORAL TABLET 1 tablet by mouth BID prn had pain CYCLOBENZAPRINE HCL 10 MG ORAL TABLET 329140 CYCLOBENZAPRINE HCL Inactive ZOCOR 40 MG ORAL TABLET 1 tab by mouth daily 4 ZOCOR 40 MG ORAL TABLET 625876 SIMVASTATIN Inactive TUSSIONEX PENNKINETIC ER 10-8 MG/5ML [...] FLUTICASONE PROPIO EFE 50 MCG/ACT NASAL SUSPENSION 7958569 FLUTICASONE PROPIONATE Inactive TUSSIONEX PENNKINETIC ER 10-8 [...] three days PREDNISONE 20 MG ORAL TABLET 436908 PREDNIS ONE Inactive PROAIR HFA 108 (90 BASE) MCG/ACT INHALATION AEROSOL SO LUTION 2 puffs four times a day as needed PROAIR HFA 108 (90 B ASE) MCG/ACT INHALATION AEROSOL SOLUTION ALBUTEROL SULFATE Inactive PREDNISONE 20 MG ORAL TABLET two tabs by mouth today, then one tab by mouth days two and three and four PREDNISONE 20 MG ORAL TAB LET 870264 PREDNISONE Inactive TUSSIONEX PENNKINETIC ER 10-8 MG/5ML [...] bid 04/20 TOPAMAX 100 MG ORAL TABLET 654391 TOPIRAMATE Inactive ZITHROMAX Z-REYNA 250 MG ORAL TABLET 2 today, then 1 daily for 4 d ays ZITHROMAX Z-REYNA 250 MG ORAL TABLET 060596 AZITHROMYCIN Inactive CEFDINIR 300 MG ORAL CAPSULE [...] 2-5 03/07/07 ZITHROMAX 250 MG ORAL TABLET 695168 AZITHROMYCIN [place] ctive CEFDINIR 300 MG ORAL CAPSULE by mouth twice a day 2011 CEFDINIR 300 MG ORAL CAPSULE 898407 CEFDINIR Inactive PREDNISONE 20 MG ORAL TABLET 2 tabs daily for 3 days, 1 tab daily for 3 days, 1/2 tab daily for 2 days PREDNISONE 20 MG ORAL T ABLET 494909 PREDNISONE Inactive AVELOX 400 MG ORAL TABLET 1 tab by mouth daily AVELOX 400 MG ORAL TABLET 439589 MOXIFLOXACIN HCL Inactive AVELOX 400 MG ORAL TABLET 1 tab by mouth daily AVELOX 400 MG ORAL TABLET 850077 MOXIFLOXACIN HCL Inactive PREDNISONE 20 MG ORAL TABLET Take 3 tabs daily for 3 d ays, 2 tabs daily for 3 days, 1 tab daily for 3 days, 1/2 tab daily for 3 days 11/07 PREDNISONE 20 MG ORAL TABLET 882620 PREDNISONE Inactive LEVAQUIN 500 MG ORAL TABLET take one po QD LEVAQUIN 500 MG ORAL TABLET 360864 LEVOFLOXACIN Inactive AZITHROMYCIN 250 MG ORAL TABLET 2 po qd x 1 day, then 1 po q d x 4 days AZITHROMYCIN 250 MG ORAL TABLET 735467 AZITHROMY GIOVANNI Inactive MEDROL 4 MG ORAL TABLET THERAPY PACK 6 tabs on day 1, 5 tabs on day 2, 4 tabs on day 3, 3 tabs on day 4, 2 tabs on day 5, 1 tab on day 6 2013 MEDROL 4 MG ORAL TABLET THERAPY PACK 011899 METHYLPREDNISOLONE [place] ctive CHERATUSSIN AC 100-10 MG/5ML ORAL SYRUP 5ml po q6hr PRN Cough 20 13/04/14 CHERATUSSIN AC 100-10 MG/5ML ORAL SYRUP 900072 GUAIFENE SIN-CODEINE Inactive TRIAMCINOLONE ACETONIDE 0.1 % EXTERNAL CREAM apply three roger es daily prn rash TRIAMCINOLONE ACETONIDE 0.1 % EXTERNAL CREAM 101 4314 TRIAMCINOLONE ACETONIDE Inactive AZITHROMYCIN 250 MG ORAL TABLET 2 po qd x 1 day, then 1 po q d x 4 days AZITHROMYCIN 250 MG ORAL TABLET 759375 AZITHROMY GIOVANNI Inactive MEDROL 4 MG ORAL TABLET THERAPY PACK 6 pills x 1 day, then 5 pills x 1 day then 4 pills x 1 day, then 3 pills x 1 day, then 2 pills x 1 day, then 1 pill x 1 day, then stop MEDROL 4 MG ORAL TABLET THERAPY PACK 239729 METHYLPREDNISOLONE Inactive AMOXICILLIN 500 MG ORAL CAPSULE 1 tab by mouth 3 times daily x 10 days AMOXICILLIN 500 MG ORAL CAPSULE 991440 AMOXICILL IN Inactive AMOXICILLIN 500 MG ORAL CAPSULE 1 tab by mouth 3 times daily x 10 days AMOXICILLIN 500 MG ORAL CAPSULE 856426 AMOXICILL IN Inactive ZITHROMAX 250 MG ORAL TABLET 2 po today, then 1 po q days 2-5 20 12/08/14 ZITHROMAX 250 MG ORAL TABLET 007636 AZITHROMYCIN [place] ctive AUGMENTIN 875-125 MG ORAL TABLET 1 po BID x 10 days 20 13/01/20 AUGMENTIN 875-125 MG ORAL TABLET 856547 AMOXICILLIN-POT CLAVULANATE Inactive ZITHROMAX Z-REYNA 250 MG ORAL TABLET 2 today, then 1 daily for 4 d ays ZITHROMAX Z-REYNA 250 MG ORAL TABLET [id number] AZITHROMYCIN Inactive ZITHROMAX 250 MG ORAL TABLET 2 po today, then 1 po q days 2-5 20 14/03/21 ZITHROMAX 250 MG ORAL TABLET 124636 AZITHROMYCIN Greer ctive ZITHROMAX Z-REYNA 250 MG ORAL TABLET 2 today, then 1 daily for 4 d ays ZITHROMAX Z-REYNA 250 MG ORAL TABLET [id number] AZITHROMYCIN Inactive CEFDINIR 300 MG ORAL CAPSULE 1 po BID x 10 days 06/21 CEFDINIR 300 MG ORAL CAPSULE 055235 CEFDINIR Inactive ZITHROMAX 250 MG ORAL TABLET 2 po today, then 1 po q days 2-5 20 13/08/10 ZITHROMAX 250 MG ORAL TABLET [id number] AZITHROMYCIN Greer ctive LEVAQUIN 500 MG ORAL TABLET 1 tablet by mouth daily 13/09/24 LEVAQUIN 500 MG ORAL TABLET 622409 LEVOFLOXACIN Inactive SINGULAIR 10 MG ORAL TABLET 1 po qday for allergies 20 14/01/12 SINGULAIR 10 MG ORAL TABLET 466632 MONTELUKAST SODIUM Inactive AMOXICILLIN 500 MG ORAL CAPSULE 2 po BID x 10 days 201 09/29/08 AMOXICILLIN 500 MG ORAL CAPSULE [id number] AMOXICILLIN Inactive PREDNISONE 20 MG ORAL TABLET 2 tabs daily for 3 days, 1 tab daily for 3 days, 1/2 tab daily for 2 days PREDNISONE 20 MG ORAL T ABLET 815789 PREDNISONE Inactive ZITHROMAX Z-REYNA 250 MG ORAL TABLET 2 today, then 1 daily for 4 d ays ZITHROMAX Z-REYNA 250 MG ORAL TABLET 215184 AZITHROMYCIN Inactive PREDNISONE 20 MG ORAL TABLET 2 tabs daily for 3 days, 1 tab daily for 3 days, 1/2 tab daily for 2 days PREDNISONE 20 MG ORAL T ABLET 233596 PREDNISONE Inactive ZITHROMAX 250 MG ORAL TABLET 2 po today, then 1 po q days 2-5 20 14/09/04 ZITHROMAX 250 MG ORAL TABLET 207620 AZITHROMYCIN Greer ctive AMOXICILLIN 500 MG ORAL CAPSULE 1 cap by mouth three times a day AMOXICILLIN 500 MG ORAL CAPSULE 131928 AMOXICILLIN Inactive TERBINAFINE HCL 250 MG ORAL TABLET 1 qDay for nail fungus 7 TERBINAFINE HCL 250 MG ORAL TABLET 895812 TERBINAFINE HCL Inact nael AUGMENTIN 875-125 MG ORAL TABLET 1 po BID x 10 days 16/03/22 AUGMENTIN 875-125 MG ORAL TABLET 814756 AMOXICILLIN-POT CLAVULANATE Inactive PREDNISONE 20 MG ORAL TABLET 2 po qd x 5 days PREDNISONE 20 MG ORAL TABLET 223063 PREDNISONE Inactive AZITHROMYCIN 250 MG ORAL TABLET 2 po qd x 1 day, then 1 po q d x 4 days AZITHROMYCIN 250 MG ORAL TABLET 406023 AZITHROMY GIOVANNI Inactive PREDNISONE 50 MG ORAL TABLET Take 50 mg dialy for 6 day s 7 PREDNISONE 50 MG ORAL TABLET 538271 PREDNISONE Inactive AUGMENTIN 875-125 MG ORAL TABLET 1 po BID x 10 days 20 18/04/16 AUGMENTIN 875-125 MG ORAL TABLET 531605 AMOXICILLIN-POT CLAVULANATE Inactive DOXYCYCLINE HYCLATE 100 MG ORAL CAPSULE 1 cap by mouth twice latasha ly DOXYCYCLINE HYCLATE 100 MG ORAL CAPSULE 7828697 DOXYCYCL INE HYCLATE Inactive PREDNISONE 20 MG ORAL TABLET Take 2 tabs day 1 and 2 and 1 t ab days 3 and 4 PREDNISONE 20 MG ORAL TABLET 376784 PREDNISONE Inactive Vital Signs Date Name Value [...] - Chem istry sodium, serum 139 mmol/L 682-956 3232/03/19 potassium, serum 3.6 mmol/L 3.5-5.2 chloride, serum 100 mmol/L 98-107 carbon dioxide, venous blood 30.3 mmol/L 21.0-32 .0 blood glucose 101 mg/dL 65-110 calcium, serum 9.4 mg/dL 8.5-10.1 urea nitrogen, blood 10 mg/dL 7-18 creatinine, serum 0.96 mg/dL 0.60-1.30 sodium, serum 139 mmol/L 220-205 0526/10/12 potassium, serum 3.8 mmol/L 3.5-5.2 chloride, serum 102 mmol/L 98-107 carbon dioxide, venous blood 29.4 mmol/L 21.0-32 .0 blood glucose 103 mg/dL 65-95 calcium, serum 8.8 mg/dL 8.5-10.1 urea nitrogen, blood 10 mg/dL 7-18 creatinine, serum 0.97 mg/dL 0.60-1.30 Estimated Glomerular Filtration Rate (calc) 62 (?) mL/min/1.73m2 = OR > 60 mL/min Encounters Code Encounter Date Provider Facility CPT-89260 Level 3 Est. Patient 09:46:49 [employer] DIRECT[employer] David lion [facility]-[id number] Vst-Est Level III 11:12:16 CDT Yanet Bess DO [facility] CPT-04422 Level 3 Est. Patient 11:34:49 [employer] DIRECT[employer] Perez Mora MD [facility] CPT-94659 Level 4 Est. Patient 09:51:32 [employer] DIRECTOR Carlton rich MD [facility] CPT-25255 Level 3 Est. Patient 10:26:00 [employer] DIRECTOR Elise stephenson [facility] CPT-34997 Level 3 Est. Patient 13:35:41 [employer] DIRECT[employer] Carlton rich MD [facility] CPT-41746 Level 3 Est. Patient 10:03:52 [employer] DIRECT[employer] Carlton rich MD [facility] CPT-97324 Level 3 Est. Patient 12:17:50 CDT Hugo Restrepo MD [facility] CPT-01645 Level 3 Est. Patient 13:42:38 CDT Elise stephenson [facility] CPT-19348 Level 3 Est. Patient 13:23:51 CDT Diya cobian [facility] CPT-68498 Level 3 Est. Patient 14:22:19 [employer] DIRECTOR Diya cobian [facility] CPT-58994 Level 3 Est. Patient 10:11:46 CDT Carlton rich MD [facility] CPT-50489 Level 3 Est. Patient 17:29:43 CDT Elise Are [facility] CPT-84564 Level 3 Est. Patient 11:58:06 CDT Elise Are [facility] CPT-89365 Level 4 Est. Patient 14:36:51 CDT Carlton rich MD [facility] CPT-67892 Level 3 Est. Patient 18:16:00 [employer] DIRECTOR Blaine Freeman [facility] CPT-00293 Level 3 Est. Patient 09:45:49 [employer] DIRECTOR Carlton rich MD [facility] CPT-39365 Level 3 Est. Patient 13:19:20 CDT Carlton rich MD [facility] CPT-87505 Level 3 Est. Patient 13:06:43 CDT Ridge tam DO [facility] CPT-35229 Level 3 Est. Patient 10:03:07 CDT Perez Mora MD [facility] CPT-06837 Level 3 Est. Patient 19:50:35 [employer] DIRECTOR Carlton rich MD [facility] CPT-97892 Level 4 Est. Patient 18:05:01 [employer] DIRECTOR Carlton rich MD [facility] CPT-60126 Level 3 Est. Patient 10:45:55 [employer] DIRECTOR Hugo Restrepo MD [facility] CPT-80911 Level 3 Est. Patient 14:12:49 CDT Griffin lincoln [facility]-17217 Level 3 Est. Patient 17:37:24 CDT Carlton rich MD [facility] CPT-70370 Level 3 Est. Patient 16:51:54 CDT Carlton rich MD [facility] CPT-96336 Level 3 Est. Patient 12:18:11 CDT Hugo Restrepo MD [facility] CPT-82423 Level 3 Est. Patient 11:30:25 CDT Marcy crisostomo MD PhD [facility] CPT-80534 Level 3 Est. Patient 12:00:47 [employer] DIRECTOR Carlton rich MD [facility] CPT-96987 Level 3 Est. Patient 16:31:06 [employer] DIRECTOR Carlton rich MD [facility] CPT-73886 Level 3 Est. Patient 16:23:24 [employer] DIRECTOR Ridge tam [facility] CPT-61571 Level 3 Est. Patient 12:34:12 CDT Carlton rich MD [facility] CPT-36138 Level 2 Est. Patient 15:43:33 CDT Robi armstrong MD [facility] CPT-35600 Level 4 Est. Patient 14:04:44 CDT Carlton rich MD [facility] CPT-34683 Level 3 Est. Patient 05:47:59 CDT Ridge tam [facility] CPT-09235 Level 3 Est. Patient 13:12:53 [employer] DIRECTOR Carlton rich MD [facility] CPT-19836 Level 3 Est. Patient 14:26:53 CDT Hugo Restrepo MD [facility] Procedures Code Procedure Name Date Entry Date Standard Desc ription CPT-000 Give Appropriate Flu Vaccine 14:14:31 CDT CPT-J1040 Depo Medrol 80 mg (Methyl Prednisolone A cetate) 10:42:44 CDT CPT-J1100 Decadron 8mg (Dexamethasone) 10:42:44 CDT 2 CPT-J0696 Rocephin 1gm Inj Solr 14:32:13 CDT CPT-J1020 Depo Medrol 60 mg (Methyl Prednisolone A cetate) 14:32:13 CDT CPT-J1100 Decadron 6mg (Dexamethasone) 14:32:13 CDT 2 CPT-55110 Hip bilat min 2V w AP pelvis 13:16:20 CDT 2 CPT-23644 Pelvis only 13:07:33 CDT CPT-61692 Spec Collection and Handling Fee 11:25:12 C DT CPT-34741 Fluzone Quadrivalent Intramuscular Suspe nsion 0.5 ML 14:31:55 CDT CPT-99637 Abx/Therapy Injection 13:28:47 [employer] DIRECTOR CPT-J2930 Solu Medrol 125 mg (Methyl Prednisolone Sodium Succinate) 12:00:47 [employer] DIRECTOR CPT-59431 Venipuncture Draw Fee 11:33:31 CDT CPT-00804 EKG Trac and Interp 11:21:09 CDT CPT-42142 Chest 2V Frontal and Lat 11:21:09 CDT 12/15 CPT-65760 Venipuncture Draw Fee 08:02:34 CDT CPT-75126 Chest 2V Frontal and Lat 05:47:59 CDT 06/05
--- OUTSIDE RECORDS SUMMARY | 2019-10-08 09:14 | XMS REPORT | Clinical Summary ---
Author Author Caitlin, Juliana Martinez Organization [facility] Address Unknown Phone Unavailable Allergies, [...] of gastrointestinal tract FH DIABETES V18.0 Active Calrton Hu MD Family history of diabetes mellitus [...] URI 465.9 Inactive Ridge Bess DO Ac [place] upper respiratory infections of unspecified site Body [...] po q12hr PRN Cough HYDROCOD POLST-CHLORPHEN POLST 73052670323 Active David Marianne BINDER AND BOX BUILDER Active PREDNISONE 20 MG ORAL TABLET Take 2 tabs day 1 and 2 and 1 t ab days 3 and 4 PREDNISONE 69942749991 No Longer Active David Marianne BINDER AND BOX BUILDER Active DOXYCYCLINE HYCLATE 100 MG ORAL CAPSULE 1 cap by mouth twice latasha ly DOXYCYCLINE HYCLATE 82605623347 No Longer Active David Marianne BINDER AND BOX BUILDER Active TOPAMAX 100 MG ORAL TABLET Take 1 tablet po bid TOPIRAMATE 01759673713 No Longer Active David Marianne BINDER AND BOX BUILDER Active TUSSIONEX PENNKINETIC ER 10-8 MG/5ML ORAL SUSPENSION E XTENDED RELEASE 5ml po q12hr PRN Cough HYDROCOD POLST-CHLORPHEN POLST 5 3787696060 No Longer Active David Marianne BINDER AND BOX BUILDER Active AUGMENTIN 875-125 MG ORAL TABLET 1 po BID x 10 days 20 18/04/16 AMOXICILLIN-POT CLAVULANATE 79070161666 No Longer Active David Marianne BINDER AND BOX BUILDER Active PREDNISONE 50 MG ORAL TABLET Take 50 mg dialy for 6 day s 7 PREDNISONE 09424838650 No Longer Active David Lopes APRN Active TUSSIONEX PENNKINETIC ER 10-8 MG/5ML ORAL SUSPENSION E XTENDED RELEASE 5ml po q12hr PRN Cough HYDROCOD POLST-CHLORPHEN POLST 5 9599404051 No Longer Active Cherelle Torres RN Active PREDNISONE 20 MG ORAL TABLET two tabs by mouth today, then one tab by mouth days two and three and four PREDNISONE 64695165393 No Lo nger Active Cherelle Torres RN Active AZITHROMYCIN 250 MG ORAL TABLET 2 po qd x 1 day, then 1 po q d x 4 days AZITHROMYCIN 84718856747 No Longer Active Ridge Bess DO Active PREDNISONE 20 MG ORAL TABLET 2 po qd x 5 days P REDNISONE 64890930144 No Longer Active Perez Mora MD Active PROAIR HFA 108 (90 BASE) MCG/ACT INHALATION AEROSOL SO LUTION 2 puffs four times a day as needed ALBUTEROL SULFATE 15205995597 No Long er Active Becky AGUILARA Active ASPIRIN 81 MG ORAL TABLET 1 po qd ASPIRIN 97538345352 Active Carlton Hu MD Active PREDNISONE 20 MG ORAL TABLET 1 tab twice daily for 3 d ay, then one daily for three days PREDNISONE 45618903738 No Longer Active Carlton Hu MD Active AUGMENTIN 875-125 MG ORAL TABLET 1 po BID x 10 days 20 16/03/22 AMOXICILLIN-POT CLAVULANATE 20453521700 No Longer Active Elise Garcia APRN Active TERBINAFINE HCL 250 MG ORAL TABLET 1 qDay for nail fungus 7 TERBINAFINE HCL 00938972449 No Longer Active Carlton Hu MD A ctive AMOXICILLIN 500 MG ORAL CAPSULE 1 cap by mouth three times a day AMOXICILLIN 25368416086 No Longer Active Carlton Hu MD Active ELMIRON 100 MG ORAL CAPSULE 2 tablets in the am and 1 tablet at hs PENTOSAN POLYSULFATE SODIUM 32940042343 No Longer Active Robert Hu MD Active MUCINEX D 60-600 MG ORAL TABLET EXTENDED RELEASE 12 HOUR 1 t ab po q am PSEUDOEPHEDRINE-GUAIFENESIN 80774881226 No Longer Act nael Carlton Hu MD Active MUCINEX DM MAXIMUM STRENGTH 60-1200 MG ORAL TABLET EXT ENDED RELEASE 12 HOUR 1 tab po q am DEXTROMETHORPHAN-GUAIFENESIN 74157099050 No Longer Active Carlton Hu MD Active TUSSIONEX PENNKINETIC ER 10-8 MG/5ML ORAL SUSPENSION E XTENDED RELEASE 5ml po q12hr PRN Cough HYDROCOD POLST-CHLORPHEN POLST 5 4526817386 No Longer Active Carlton Hu MD Active POTASSIUM CHLORIDE ER 20 MEQ ORAL TABLET EXTENDED RELE ASE Take 1 by mouth 4 times daily for 7 days POTASSIUM CHLORIDE 59525562113 No Longer Active Carlton Hu MD Active ZITHROMAX 250 MG ORAL TABLET 2 po today, then 1 po q days 2-5 14/09/04 AZITHROMYCIN 58351730416 No Longer Active Elise Garcia APRN Active TUSSIONEX PENNKINETIC ER 10-8 MG/5ML ORAL SUSPENSION E XTENDED RELEASE 5 ml twice a day as needed for cough HYDROCOD POLST-CHLORPH EN POLST 48827511171 No Longer Active Elise Garcia APRN Active MONTELUKAST SODIUM 10 MG ORAL TABLET 1 po daily for Allergy MONTELUKAST SODIUM 06712106085 Active ALFREDO Holly Act nael TUSSIONEX PENNKINETIC ER 10-8 MG/5ML ORAL SUSPENSION E XTENDED RELEASE 5ml po q12hr PRN Cough HYDROCOD POLST-CHLORPHEN POLST 5 3987928161 No Longer Active Hugo Restrepo MD Active GABAPENTIN 100 MG ORAL CAPSULE 1 po BID for fibromyalgia GABAPENTIN 45065651293 Active Carlton Hu MD Active LYRICA 100 MG ORAL CAPSULE Take 1 tab po BID for fibromyalgia 20 11/08/21 PREGABALIN 15347817477 No Longer Active Elise Garcia APRN A ctive PREDNISONE 20 MG ORAL TABLET 2 tabs daily for 3 days, 1 tab daily for 3 days, 1/2 tab daily for 2 days PREDNISONE 50570106463 No Longer Active Venullina Cesarl BINDER AND BOX BUILDER Active TUSSIONEX PENNKINETIC ER 10-8 MG/5ML ORAL SUSPENSION E XTENDED RELEASE 5 mL PO q 12 hrs PRN cough HYDROCOD POLST-CHLORPHEN POLST 755004 30118 No Longer Active Jillina Frakerriel BINDER AND BOX BUILDER Active FLUTICASONE PROPIONATE 50 MCG/ACT NASAL SUSPENSION 2 s prays each nostril daily until bottle is empty FLUTICASONE PROPIONATE 328120036 99 No Longer Active Jillina Frazell BINDER AND BOX BUILDER Active ASMANEX 60 METERED DOSES 220 MCG/INH INHALATION AEROSO L POWDER BREATH ACTIVATED 1 puff bid with rinse after MOMETASONE FUROATE 0933567 4102 No Longer Active Jillina Cesarl BINDER AND BOX BUILDER Active ZITHROMAX Z-REYNA 250 MG ORAL TABLET 2 today, then 1 daily for 4 d ays AZITHROMYCIN 66718723492 No Longer Active Elise Garcia BINDER AND BOX BUILDER Active TUSSIONEX PENNKINETIC ER 10-8 MG/5ML ORAL SUSPENSION E XTENDED RELEASE 5ml po q12hr PRN Cough HYDROCOD POLST-CHLORPHEN POLST 5 5597016290 No Longer Active Elise Garcia APRN Active PREDNISONE 20 MG ORAL TABLET 2 tabs daily for 3 days, 1 tab daily for 3 days, 1/2 tab daily for 2 days PREDNISONE 87903755023 No Longer Active Jillina Cesarl BINDER AND BOX BUILDER Active AMOXICILLIN 500 MG ORAL CAPSULE 2 po BID x 10 days 201 09/29/08 AMOXICILLIN 23418148837 No Longer Active Jillina Cesarl BINDER AND BOX BUILDER Act nael SINGULAIR 10 MG ORAL TABLET 1 po qday for allergies 20 14/01/12 MONTELUKAST SODIUM 60931965667 No Longer Active Carlton Hu MD Active LEVAQUIN 500 MG ORAL TABLET 1 tablet by mouth daily 13/09/24 LEVOFLOXACIN 70414904624 No Longer Active Carlton Hu MD Acti ve FLUTICASONE PROPIONATE 50 MCG/ACT NASAL SUSPENSION 2 s prays each nostril daily for 2 weeks, then 1 spray each nostril daily. FLUTICASONE PROPIONATE 15229629406 Active ALFREDO Holly Active ZITHROMAX 250 MG ORAL TABLET 2 po today, then 1 po q days 2-5 20 13/08/10 AZITHROMYCIN 13377834696 No Longer Active Elise Garcia APRN Active XANAX 0.5 MG ORAL TABLET one tablet by mouth daily prn anxiety 2015 ALPRAZOLAM 50305940223 Active ALFREDO Holly Active CYMBALTA 30 MG ORAL CAPSULE DELAYED RELEASE PARTICLES 1 cap by mouth daily for depression DULOXETINE HCL 35065669409 Active ALFREDO Holly Active CEFDINIR 300 MG ORAL CAPSULE 1 po BID x 10 days CEFDINIR 24851932665 No Longer Active Carlton Hu MD Active ZOCOR 40 MG ORAL TABLET 1 tab by mouth daily SI MVASTATIN 01900309757 No Longer Active Carlton Hu MD Active CYCLOBENZAPRINE HCL 10 MG ORAL TABLET 1 tablet by mouth BID prn had pain CYCLOBENZAPRINE HCL 49862540592 No Longer Active Jayden Hu MD Active LEVOFLOXACIN 500 MG ORAL TABLET 1 tab PO daily x 10 days LEVOFLOXACIN 68612467839 No Longer Active Carlton Hu MD Acti ve PREDNISONE 20 MG ORAL TABLET 3 tab PO qd x 2d, 2 tab P O qd x 2d, 1 tab PO qd x 2d, 1/2 tab PO qd x 2d PREDNISONE 85892674380 No Lo nger Active Carlton Hu MD Active FLUTICASONE PROPIONATE 50 MCG/ACT NASAL SUSPENSION 1 t o 2 sprays each nostril daily FLUTICASONE PROPIONATE 28278487614 No Longer Ac tive Blaine HERNANDEZ Active CHERATUSSIN AC 100-10 MG/5ML ORAL SYRUP 1 tsp by mouth every 4 hours as needed for cough GUAIFENESIN-CODEINE 20936661642 No Longe r Active Blaine HERNANDEZ Active PROMETHAZINE-CODEINE 6.25-10 MG/5ML ORAL SYRUP 1 tsp b y mouth every 6 hours if needed for cough PROMETHAZINE-CODEINE 13364573058 No Longer Active Blaine HERNANDEZ Active CHERATUSSIN AC 100-10 MG/5ML ORAL SYRUP 1 tsp by mouth every 4 hours as needed for cough GUAIFENESIN-CODEINE 67012559466 No Longe r Active Blaine HERNANDEZ Active ZITHROMAX Z-REYNA 250 MG ORAL TABLET 2 today, then 1 daily for 4 d ays AZITHROMYCIN 97050369899 No Longer Active Columba Raida Act nael ZITHROMAX 250 MG ORAL TABLET 2 po today, then 1 po q days 2-5 20 14/03/21 AZITHROMYCIN 80890960260 No Longer Active Carlton Hu MD Active ZITHROMAX Z-REYNA 250 MG ORAL TABLET 2 today, then 1 daily for 4 d ays AZITHROMYCIN 08959374572 No Longer Active Columba Raida Act neal AUGMENTIN 875-125 MG ORAL TABLET 1 po BID x 10 days 13/01/20 AMOXICILLIN-POT CLAVULANATE 84250566688 No Longer Active Diya De Guzman APRN Active ZITHROMAX 250 MG ORAL TABLET 2 po today, then 1 po q days 2-5 20 12/08/14 AZITHROMYCIN 54506781959 No Longer Active Carlton Hu MD Active TRAMADOL HCL 50 MG ORAL TABLET 1 po tid with ES Tylenol TRAMADOL HCL 98201271230 Active Adrienne Galvez TUNNEL ELASTIC OPERATOR ZIGZAG Active PREMARIN 0.625 MG ORAL TABLET TAKE 1 TAB BY MOUTH DAILY ESTROGENS CONJUGATED 81081477828 No Longer Active Ridge Bess DO A ctive CYMBALTA 30 MG ORAL CAPSULE DELAYED RELEASE PARTICLES 1 cap by mouth daily DULOXETINE HCL 00286622336 No Longer Active Ridge Ya ee DO Active AMOXICILLIN 500 MG ORAL CAPSULE 1 tab by mouth 3 times daily x 10 days AMOXICILLIN 63262616632 No Longer Active Carlton bustamante MD Active AMOXICILLIN 500 MG ORAL CAPSULE 1 tab by mouth 3 times daily x 10 days AMOXICILLIN 24719726528 No Longer Active Carlton bustamante MD Active PROMETHAZINE-CODEINE 6.25-10 MG/5ML ORAL SYRUP 1 tsp b y mouth every 8 hours prn cough PROMETHAZINE-CODEINE 98676262578 No Longer Acti ve Carlton Hu MD Active MEDROL 4 MG ORAL TABLET THERAPY PACK 6 pills x 1 day, then 5 pills x 1 day then 4 pills x 1 day, then 3 pills x 1 day, then 2 pills x 1 day, then 1 pill x 1 day, then stop METHYLPREDNISOLONE 99146851997 No Long er Active Perez Mora MD Active AZITHROMYCIN 250 MG ORAL TABLET 2 po qd x 1 day, then 1 po q d x 4 days AZITHROMYCIN 22180176803 No Longer Active Perez Ambriz MD Active SYMBICORT 160-4.5 MCG/ACT INHALATION AEROSOL 2 puffs bid wit h rinse after BUDESONIDE-FORMOTEROL FUMARATE 87055132157 N o Longer Active Perez Mora MD Active LYRICA 75 MG ORAL CAPSULE TAKE 1 CAPSULE BY MOUTH TWICE DAILY PREGABALIN 80167018402 No Longer Active Carlton Hu MD Acti ve TOPAMAX 25 MG ORAL TABLET 1 qHS x 1 week, then 1 BID x 1 week, then 1 qAM and 2 qHS x 1 week, then 2 BID (migraine prevention) T OPIRAMATE 20015312453 No Longer Active Jerica FUENTES Active TOPAMAX 50 MG ORAL TABLET take 1 tab po BID for migraines. 07/02 TOPIRAMATE 55912414859 No Longer Active Jerica FUENTES Active TRIAMCINOLONE ACETONIDE 0.1 % EXTERNAL CREAM apply three roger es daily prn rash TRIAMCINOLONE ACETONIDE 83356550176 No Longer Active Carlton Hu MD Active PAXIL 40 MG ORAL TABLET take 1 tab po qday for depression 0 PAROXETINE HCL 17780420167 Active ALFREDO Holly Active CHERATUSSIN AC 100-10 MG/5ML ORAL SYRUP 5ml po q6hr PRN Cough 20 13/04/14 GUAIFENESIN-CODEINE 10386677277 No Longer Active Carlton Hu MD Active MEDROL 4 MG ORAL TABLET THERAPY PACK 6 tabs on day 1, 5 tabs on day 2, 4 tabs on day 3, 3 tabs on day 4, 2 tabs on day 5, 1 tab on day 6 2013 METHYLPREDNISOLONE 77953043694 No Longer Active Perez Mora MD Active AZITHROMYCIN 250 MG ORAL TABLET 2 po qd x 1 day, then 1 po q d x 4 days AZITHROMYCIN 51651860648 No Longer Active Perez Ambriz MD Active PROPRANOLOL HCL 60 MG ORAL TABLET 1 PO Q D PROPRANOLOL HCL 95745426549 No Longer Active Perez Mora MD Activ e CHERATUSSIN AC 100-10 MG/5ML ORAL SYRUP take one tsp po Q 6h ours prn cough GUAIFENESIN-CODEINE 16978406824 No Longer Active Zia Mora MD Active AUGMENTIN 875-125 MG ORAL TABLET 1 tab by mouth twice daily with food AMOXICILLIN-POT CLAVULANATE 98440113160 No Longer Act nael Perez Mora MD Active CHERATUSSIN AC 100-10 MG/5ML ORAL SYRUP 1 tsp by mouth every 4 hours as needed for cough GUAIFENESIN-CODEINE 74450178187 No Longe r Active Hugo Restrepo MD Active ACETAMINOPHEN-CODEINE #3 300-30 MG ORAL TABLET 1 PO Q 4-6 HRS LA N PAIN ACETAMINOPHEN-CODEINE 06635852954 No Longer Active Hugo Restrepo MD Active LEVAQUIN 500 MG ORAL TABLET take one po QD LEVO FLOXACIN 86961179978 No Longer Active Griffin HERNANDEZ Active PREDNISONE 20 MG ORAL TABLET Take 3 tabs daily for 3 d ays, 2 tabs daily for 3 days, 1 tab daily for 3 days, 1/2 tab daily for 3 days 11/07 PREDNISONE 08908337498 No Longer Active Carlton Hu MD Acti ve AVELOX 400 MG ORAL TABLET 1 tab by mouth daily MOXIFLOXACIN HCL 09660513518 No Longer Active Carlton Hu MD Active CHERATUSSIN AC 100-10 MG/5ML ORAL SYRUP 1 tsp by mouth every 4 hours as needed for cough GUAIFENESIN-CODEINE 55552733022 No Longe r Active Hugo Restrepo MD Active AVELOX 400 MG ORAL TABLET 1 tab by mouth daily MOXIFLOXACIN HCL 87700689018 No Longer Active Marcy De La Rosa MD PhD Active TERBINAFINE HCL 250 MG ORAL TABLET 1 qDay T ERBINAFINE HCL 97058058372 No Longer Active Marcy De La Rosa MD PhD Active CHERATUSSIN AC 100-10 MG/5ML ORAL SYRUP 1 tsp by mouth every 4 hours as needed for cough GUAIFENESIN-CODEINE 38028307397 No Longe r Active Marcy De La Rosa MD PhD Active AVELOX 400 MG ORAL TABLET 1 tab by mouth daily MOXIFLOXACIN HCL 53243871502 No Longer Active Marcy De La Rosa MD PhD Active HYDROCODONE-ACETAMINOPHEN 5-325 MG ORAL TABLET 1 po q 6hr PRN co ugh HYDROCODONE-ACETAMINOPHEN 58231992822 No Longer Active Marcy De La Rosa MD PhD Active PREDNISONE 20 MG ORAL TABLET 2 tabs daily for 3 days, 1 tab daily for 3 days, 1/2 tab daily for 2 days PREDNISONE 79428959040 No Longer Active Carlton Hu MD Active CEFDINIR 300 MG ORAL CAPSULE by mouth twice a day 2011 CEFDINIR 13663513329 No Longer Active Carlton Hu MD Acti ve HYDROCHLOROTHIAZIDE 25 MG ORAL TABLET 1 TAB PO DAILY HYDROCHLOROTHIAZIDE 92987739934 Active ALFREDO Holly Ac tive ACETAMINOPHEN-CODEINE #3 300-30 MG ORAL TABLET 1 tablet po q 4-6 hrs prn pain ACETAMINOPHEN-CODEINE 84042001116 No Longer Active Ridge Bess DO Active ZITHROMAX 250 MG ORAL TABLET 2 po today, then 1 po q days 2-5 20 03/07/07 AZITHROMYCIN 33368071682 No Longer Active Carlton Hu MD Active CHERATUSSIN AC 100-10 MG/5ML ORAL SYRUP take 1 tsp po q4-6 h ours prn cough GUAIFENESIN-CODEINE 53385439281 No Longer Active Jayden Hu MD Active ACETAMINOPHEN-CODEINE #3 300-30 MG ORAL TABLET 1 PO Q 4-6 HR PRN PAIN ACETAMINOPHEN-CODEINE 18431424580 No Longer Active Da raimundo Hu MD Active LORTAB 7.5-500 MG/15ML ORAL ELIXIR 7.5 ml po q 4 hour prn cough HYDROCODONE-ACETAMINOPHEN 89617142916 No Longer Active Carlton Hu MD Active PREDNISONE 20 MG ORAL TABLET 1 po bid 3 days, then 1 po q day 3 days PREDNISONE 29092492116 No Longer Active Carlton Hu MD Active CEFDINIR 300 MG ORAL CAPSULE by mouth twice a day 2011 CEFDINIR 19235259956 No Longer Active Carlton Hu MD Acti ve CEFDINIR 300 MG ORAL CAPSULE by mouth twice a day 2010 CEFDINIR 98379456613 No Longer Active Carlton Hu MD Acti ve CEFDINIR 300 MG ORAL CAPSULE by mouth twice a day 2010 CEFDINIR 02664870226 No Longer Active Carlton Hu MD Acti ve TESSALON PERLES 100 MG ORAL CAPSULE 1 tablet by mouth 3 times daily as needed for cough BENZONATATE 21139907724 No Longer Active Carlton Hu MD Active CEFDINIR 300 MG ORAL CAPSULE by mouth twice a day 2010 CEFDINIR 77364726035 No Longer Active Carlton Hu MD Acti ve ZITHROMAX Z-REYNA 250 MG ORAL TABLET 2 today, then 1 daily for 4 d ays AZITHROMYCIN 36185086381 No Longer Active Hugo Restrepo MD Active TESSALON PERLES 100 MG ORAL CAPSULE 1 tablet by mouth 3 times daily as needed for cough TESSALON PERLES 100 MG ORAL CAPSULE 52034 7 BENZONATATE Inactive PREDNISONE 20 MG ORAL TABLET 1 po bid 3 days, then 1 po q day 3 days PREDNISONE 20 MG ORAL TABLET 969268 PREDNISONE [place] ctive LORTAB 7.5-500 MG/15ML ORAL [...] cough CHERATUSSIN AC 100-10 MG/5ML ORAL SYRUP 286173 GUAIFENESIN-CODEINE Inactive ACETAMINOPHEN-CODEINE #3 300-30 MG ORAL TABLET 1 tablet po q 4-6 hrs prn pain ACETAMINOPHEN-CODEINE #3 300-30 MG ORAL TABLET ACETAMINOPHEN-CODEINE Inactive HYDROCODONE-ACETAMINOPHEN 5-325 MG ORAL TABLET 1 po q 6hr PRN co ugh HYDROCODONE-ACETAMINOPHEN 5-325 MG ORAL TABLET 532519 HYDROCODONE-ACETAMINOPHEN Inactive AVELOX 400 MG ORAL TABLET 1 tab by mouth daily AVELOX 400 MG ORAL TABLET 845319 MOXIFLOXACIN HCL Inactive CHERATUSSIN AC 100-10 MG/5ML ORAL SYRUP 1 tsp by mouth every 4 hours as needed for cough CHERATUSSIN AC 100-10 MG/5ML ORAL SYRUP 9 05593 GUAIFENESIN-CODEINE Inactive TERBINAFINE HCL 250 MG ORAL TABLET 1 qDay 07/08 TERBINAFINE HCL 250 MG ORAL TABLET 511957 TERBINAFINE HCL Inactive CHERATUSSIN AC 100-10 MG/5ML ORAL SYRUP 1 tsp by mouth every 4 hours as needed for cough CHERATUSSIN AC 100-10 MG/5ML ORAL SYRUP 9 15636 GUAIFENESIN-CODEINE Inactive ACETAMINOPHEN-CODEINE #3 300-30 MG ORAL TABLET 1 PO Q 4-6 HRS LA N PAIN ACETAMINOPHEN-CODEINE #3 300-30 MG ORAL TABLET ACETAMINOPHEN-CODEINE Inactive CHERATUSSIN AC 100-10 MG/5ML ORAL SYRUP 1 tsp by mouth every 4 hours as needed for cough CHERATUSSIN AC 100-10 MG/5ML ORAL SYRUP 9 84406 GUAIFENESIN-CODEINE Inactive AUGMENTIN 875-125 MG ORAL TABLET 1 tab by mouth twice daily with food AUGMENTIN 875-125 MG ORAL TABLET 551968 AMOXICIL MADELINE-POT CLAVULANATE Inactive CHERATUSSIN AC 100-10 MG/5ML ORAL SYRUP take one tsp po Q 6h ours prn cough CHERATUSSIN AC 100-10 MG/5ML ORAL SYRUP 824031 GUAIFENESIN-CODEINE Inactive PROPRANOLOL HCL 60 MG ORAL TABLET 1 PO Q D PROPRANOLOL HCL 60 MG ORAL TABLET 646232 PROPRANOLOL HCL Inactive TOPAMAX 50 MG ORAL TABLET take 1 tab po BID for migraines. 07/02 TOPAMAX 50 MG ORAL TABLET 143951 TOPIRAMATE Inacti ve TOPAMAX 25 MG ORAL TABLET 1 qHS x 1 week, then 1 BID x 1 week, then 1 qAM and 2 qHS x 1 week, then 2 BID (migraine prevention) TOPAMAX 25 MG ORAL TABLET 457710 TOPIRAMATE Inactive LYRICA 75 MG ORAL CAPSULE TAKE 1 CAPSULE BY MOUTH TWICE DAILY LYRICA 75 MG ORAL CAPSULE PREGABALIN Inactive SYMBICORT 160-4.5 MCG/ACT INHALATION AEROSOL 2 puffs bid wit h rinse after SYMBICORT 160-4.5 MCG/ACT INHALATION AEROSOL BUDESONIDE- FORMOTEROL FUMARATE Inactive PROMETHAZINE-CODEINE 6.25-10 MG/5ML ORAL SYRUP 1 tsp b y mouth every 8 hours prn cough PROMETHAZINE-CODEINE 6.25-10 MG/ 5ML ORAL SYRUP 135222 PROMETHAZINE-CODEINE Inactive CYMBALTA 30 MG ORAL CAPSULE DELAYED RELEASE PARTICLES 1 cap by mouth daily CYMBALTA 30 MG ORAL CAPSULE DELAYED RELE ASE PARTICLES 938340 DULOXETINE HCL Inactive PREMARIN 0.625 MG ORAL TABLET TAKE 1 TAB BY MOUTH DAILY PREMARIN 0.625 MG ORAL TABLET ESTROGENS CONJUGATED Inactive CHERATUSSIN AC 100-10 MG/5ML ORAL SYRUP 1 tsp by mouth every 4 hours as needed for cough CHERATUSSIN AC 100-10 MG/5ML ORAL SYRUP 9 63310 GUAIFENESIN-CODEINE Inactive PROMETHAZINE-CODEINE 6.25-10 MG/5ML ORAL SYRUP 1 tsp b y mouth every 6 hours if needed for cough PROMETHAZINE-CODEINE 6.25-10 MG/5ML ORAL SYRUP 125827 PROMETHAZINE-CODEINE Inactive CHERATUSSIN AC 100-10 MG/5ML ORAL SYRUP 1 tsp by mouth every 4 hours as needed for cough CHERATUSSIN AC 100-10 MG/5ML ORAL SYRUP 9 31594 GUAIFENESIN-CODEINE Inactive FLUTICASONE PROPIONATE 50 MCG/ACT NASAL SUSPENSION 1 t o 2 sprays each nostril daily FLUTICASONE PROPIONATE 50 MCG/AC T NASAL SUSPENSION 3591848 FLUTICASONE PROPIONATE Inactive PREDNISONE 20 MG ORAL TABLET 3 tab PO qd x 2d, 2 tab P O qd x 2d, 1 tab PO qd x 2d, 1/2 tab PO qd x 2d PREDNISONE 20 MG ORAL TAB LET 879131 PREDNISONE Inactive LEVOFLOXACIN 500 MG ORAL TABLET 1 tab PO daily x 10 days LEVOFLOXACIN 500 MG ORAL TABLET 120732 LEVOFLOXACIN Inactive CYCLOBENZAPRINE HCL 10 MG ORAL TABLET 1 tablet by mouth BID prn had pain CYCLOBENZAPRINE HCL 10 MG ORAL TABLET 867108 CYCLOBENZAPRINE HCL Inactive ZOCOR 40 MG ORAL TABLET 1 tab by mouth daily 4 ZOCOR 40 MG ORAL TABLET 457867 SIMVASTATIN Inactive TUSSIONEX PENNKINETIC ER 10-8 MG/5ML [...] FLUTICASONE PROPIO EFE 50 MCG/ACT NASAL SUSPENSION 5567416 FLUTICASONE PROPIONATE Inactive TUSSIONEX PENNKINETIC ER 10-8 [...] three days PREDNISONE 20 MG ORAL TABLET 939835 PREDNIS ONE Inactive PROAIR HFA 108 (90 BASE) MCG/ACT INHALATION AEROSOL SO LUTION 2 puffs four times a day as needed PROAIR HFA 108 (90 B ASE) MCG/ACT INHALATION AEROSOL SOLUTION ALBUTEROL SULFATE Inactive PREDNISONE 20 MG ORAL TABLET two tabs by mouth today, then one tab by mouth days two and three and four PREDNISONE 20 MG ORAL TAB LET 682259 PREDNISONE Inactive TUSSIONEX PENNKINETIC ER 10-8 MG/5ML [...] bid 04/20 TOPAMAX 100 MG ORAL TABLET 339692 TOPIRAMATE Inactive ZITHROMAX Z-REYNA 250 MG ORAL TABLET 2 today, then 1 daily for 4 d ays ZITHROMAX Z-REYNA 250 MG ORAL TABLET 753507 AZITHROMYCIN Inactive CEFDINIR 300 MG ORAL CAPSULE [...] 2-5 03/07/07 ZITHROMAX 250 MG ORAL TABLET 930247 AZITHROMYCIN [place] ctive CEFDINIR 300 MG ORAL CAPSULE by mouth twice a day 2011 CEFDINIR 300 MG ORAL CAPSULE 640981 CEFDINIR Inactive PREDNISONE 20 MG ORAL TABLET 2 tabs daily for 3 days, 1 tab daily for 3 days, 1/2 tab daily for 2 days PREDNISONE 20 MG ORAL T ABLET 272868 PREDNISONE Inactive AVELOX 400 MG ORAL TABLET 1 tab by mouth daily AVELOX 400 MG ORAL TABLET 234599 MOXIFLOXACIN HCL Inactive AVELOX 400 MG ORAL TABLET 1 tab by mouth daily AVELOX 400 MG ORAL TABLET 747744 MOXIFLOXACIN HCL Inactive PREDNISONE 20 MG ORAL TABLET Take 3 tabs daily for 3 d ays, 2 tabs daily for 3 days, 1 tab daily for 3 days, 1/2 tab daily for 3 days 11/07 PREDNISONE 20 MG ORAL TABLET 820564 PREDNISONE Inactive LEVAQUIN 500 MG ORAL TABLET take one po QD LEVAQUIN 500 MG ORAL TABLET 676440 LEVOFLOXACIN Inactive AZITHROMYCIN 250 MG ORAL TABLET 2 po qd x 1 day, then 1 po q d x 4 days AZITHROMYCIN 250 MG ORAL TABLET 524584 AZITHROMY GIOVANNI Inactive MEDROL 4 MG ORAL TABLET THERAPY PACK 6 tabs on day 1, 5 tabs on day 2, 4 tabs on day 3, 3 tabs on day 4, 2 tabs on day 5, 1 tab on day 6 2013 MEDROL 4 MG ORAL TABLET THERAPY PACK 740315 METHYLPREDNISOLONE [place] ctive CHERATUSSIN AC 100-10 MG/5ML ORAL SYRUP 5ml po q6hr PRN Cough 20 13/04/14 CHERATUSSIN AC 100-10 MG/5ML ORAL SYRUP 716039 GUAIFENE SIN-CODEINE Inactive TRIAMCINOLONE ACETONIDE 0.1 % EXTERNAL CREAM apply three roger es daily prn rash TRIAMCINOLONE ACETONIDE 0.1 % EXTERNAL CREAM 101 4314 TRIAMCINOLONE ACETONIDE Inactive AZITHROMYCIN 250 MG ORAL TABLET 2 po qd x 1 day, then 1 po q d x 4 days AZITHROMYCIN 250 MG ORAL TABLET 441902 AZITHROMY GIOVANNI Inactive MEDROL 4 MG ORAL TABLET THERAPY PACK 6 pills x 1 day, then 5 pills x 1 day then 4 pills x 1 day, then 3 pills x 1 day, then 2 pills x 1 day, then 1 pill x 1 day, then stop MEDROL 4 MG ORAL TABLET THERAPY PACK 990752 METHYLPREDNISOLONE Inactive AMOXICILLIN 500 MG ORAL CAPSULE 1 tab by mouth 3 times daily x 10 days AMOXICILLIN 500 MG ORAL CAPSULE 324843 AMOXICILL IN Inactive AMOXICILLIN 500 MG ORAL CAPSULE 1 tab by mouth 3 times daily x 10 days AMOXICILLIN 500 MG ORAL CAPSULE 973625 AMOXICILL IN Inactive ZITHROMAX 250 MG ORAL TABLET 2 po today, then 1 po q days 2-5 20 12/08/14 ZITHROMAX 250 MG ORAL TABLET 565807 AZITHROMYCIN [place] ctive AUGMENTIN 875-125 MG ORAL TABLET 1 po BID x 10 days 20 13/01/20 AUGMENTIN 875-125 MG ORAL TABLET 334083 AMOXICILLIN-POT CLAVULANATE Inactive ZITHROMAX Z-REYNA 250 MG ORAL TABLET 2 today, then 1 daily for 4 d ays ZITHROMAX Z-REYNA 250 MG ORAL TABLET 245753 AZITHROMYCIN Inactive ZITHROMAX 250 MG ORAL TABLET 2 po today, then 1 po q days 2-5 20 14/03/21 ZITHROMAX 250 MG ORAL TABLET 948761 AZITHROMYCIN [place] [facility] ZITHROMAX Z-REYNA 250 MG ORAL TABLET 2 today, then 1 daily for 4 d ays ZITHROMAX Z-REYNA 250 MG ORAL TABLET 207210 AZITHROMYCIN Inactive CEFDINIR 300 MG ORAL CAPSULE 1 po BID x 10 days 06/21 CEFDINIR 300 MG ORAL CAPSULE 643404 CEFDINIR Inactive ZITHROMAX 250 MG ORAL TABLET 2 po today, then 1 po q days 2-5 20 13/08/10 ZITHROMAX 250 MG ORAL TABLET 387249 AZITHROMYCIN [place] [facility] LEVAQUIN 500 MG ORAL TABLET 1 tablet by mouth daily 13/09/24 LEVAQUIN 500 MG ORAL TABLET 751047 LEVOFLOXACIN Inactive SINGULAIR 10 MG ORAL TABLET 1 po qday for allergies 20 14/01/12 SINGULAIR 10 MG ORAL TABLET 183038 MONTELUKAST SODIUM Inactive AMOXICILLIN 500 MG ORAL CAPSULE 2 po BID x 10 days 201 09/29/08 AMOXICILLIN 500 MG ORAL CAPSULE 372620 AMOXICILLIN Inactive PREDNISONE 20 MG ORAL TABLET 2 tabs daily for 3 days, 1 tab daily for 3 days, 1/2 tab daily for 2 days PREDNISONE 20 MG ORAL T ABLET 225743 PREDNISONE Inactive ZITHROMAX Z-REYNA 250 MG ORAL TABLET 2 today, then 1 daily for 4 d ays ZITHROMAX Z-REYNA 250 MG ORAL TABLET 174896 AZITHROMYCIN Inactive PREDNISONE 20 MG ORAL TABLET 2 tabs daily for 3 days, 1 tab daily for 3 days, 1/2 tab daily for 2 days PREDNISONE 20 MG ORAL T ABLET 392450 PREDNISONE Inactive ZITHROMAX 250 MG ORAL TABLET 2 po today, then 1 po q days 2-5 20 14/09/04 ZITHROMAX 250 MG ORAL TABLET 806127 AZITHROMYCIN [place] [facility] AMOXICILLIN 500 MG ORAL CAPSULE 1 cap by mouth three times a day AMOXICILLIN 500 MG ORAL CAPSULE 147338 AMOXICILLIN Inactive TERBINAFINE HCL 250 MG ORAL TABLET 1 qDay for nail fungus 7 TERBINAFINE HCL 250 MG ORAL TABLET 164727 TERBINAFINE HCL Inact nael AUGMENTIN 875-125 MG ORAL TABLET 1 po BID x 10 days 16/03/22 AUGMENTIN 875-125 MG ORAL TABLET 105226 AMOXICILLIN-POT CLAVULANATE Inactive PREDNISONE 20 MG ORAL TABLET 2 po qd x 5 days PREDNISONE 20 MG ORAL TABLET 611983 PREDNISONE Inactive AZITHROMYCIN 250 MG ORAL TABLET 2 po qd x 1 day, then 1 po q d x 4 days AZITHROMYCIN 250 MG ORAL TABLET 468136 AZITHROMY GIOVANNI Inactive PREDNISONE 50 MG ORAL TABLET Take 50 mg dialy for 6 day s 7 PREDNISONE 50 MG ORAL TABLET 578754 PREDNISONE Inactive AUGMENTIN 875-125 MG ORAL TABLET 1 po BID x 10 days 20 18/04/16 AUGMENTIN 875-125 MG ORAL TABLET 771060 AMOXICILLIN-POT CLAVULANATE Inactive DOXYCYCLINE HYCLATE 100 MG ORAL CAPSULE 1 cap by mouth twice latasha ly DOXYCYCLINE HYCLATE 100 MG ORAL CAPSULE 6908148 DOXYCYCL INE HYCLATE Inactive PREDNISONE 20 MG ORAL TABLET Take 2 tabs day 1 and 2 and 1 t ab days 3 and 4 PREDNISONE 20 MG ORAL TABLET 675987 PREDNISONE Inactive Vital Signs Date Name Value [...] - Chem istry sodium, serum 139 mmol/L 030-806 1606/03/19 potassium, serum 3.6 mmol/L 3.5-5.2 chloride, serum 100 mmol/L 98-107 carbon dioxide, venous blood 30.3 mmol/L 21.0-32 .0 blood glucose 101 mg/dL 65-110 calcium, serum 9.4 mg/dL 8.5-10.1 urea nitrogen, blood 10 mg/dL 7-18 creatinine, serum 0.96 mg/dL 0.60-1.30 sodium, serum 139 mmol/L 208-107 0750/10/12 potassium, serum 3.8 mmol/L 3.5-5.2 chloride, serum 102 mmol/L 98-107 carbon dioxide, venous blood 29.4 mmol/L 21.0-32 .0 blood glucose 103 mg/dL 65-95 calcium, serum 8.8 mg/dL 8.5-10.1 urea nitrogen, blood 10 mg/dL 7-18 creatinine, serum 0.97 mg/dL 0.60-1.30 Estimated Glomerular Filtration Rate (calc) 62 (?) mL/min/1.73m2 = OR > 60 mL/min Encounters Code Encounter Date Provider Facility CPT-62853 Level 3 Est. Patient 09:46:49 BUILDING ENGINEER David lion [facility]-[address] [id number] Vst-Est Level III 11:12:16 CDT Yanet Bess DO [facility] CPT-78927 Level 3 Est. Patient 11:34:49 BUILDING ENGINEER Perez Mora MD [facility] CPT-06198 Level 4 Est. Patient 09:51:32 BUILDING ENGINEER Carlton rich MD [facility] CPT-18482 Level 3 Est. Patient 10:26:00 BUILDING ENGINEER Elise stephenson [facility] CPT-53829 Level 3 Est. Patient 13:35:41 BUILDING ENGINEER Carlton rich MD [facility] CPT-20503 Level 3 Est. Patient 10:03:52 BUILDING ENGINEER Carlton rich MD [facility] CPT-78711 Level 3 Est. Patient 12:17:50 CDT Hugo Restrepo MD [facility] CPT-74595 Level 3 Est. Patient 13:42:38 CDT Elise stephenson [facility] CPT-97351 Level 3 Est. Patient 13:23:51 CDT Diya cobian [facility] CPT-64424 Level 3 Est. Patient 14:22:19 BUILDING ENGINEER Diya cobian [facility] CPT-49892 Level 3 Est. Patient 10:11:46 CDT Carlton rich MD [facility] CPT-93908 Level 3 Est. Patient 17:29:43 CDT Elise [facility] CPT-88769 Level 3 Est. Patient 11:58:06 CDT Elise [facility] CPT-41506 Level 4 Est. Patient 14:36:51 CDT Carlton rich MD [facility] CPT-98299 Level 3 Est. Patient 18:16:00 BUILDING ENGINEER Blaine Freeman [facility] CPT-50966 Level 3 Est. Patient 09:45:49 BUILDING ENGINEER Carlton rich MD [facility] CPT-24249 Level 3 Est. Patient 13:19:20 CDT Carlton rich MD [facility] CPT-86365 Level 3 Est. Patient 13:06:43 CDT Ridge tam DO [facility] CPT-73039 Level 3 Est. Patient 10:03:07 CDT Perez Mora MD [facility] CPT-94526 Level 3 Est. Patient 19:50:35 BUILDING ENGINEER Carlton rich MD [facility] CPT-03011 Level 4 Est. Patient 18:05:01 BUILDING ENGINEER Carlton rich MD [facility] CPT-96028 Level 3 Est. Patient 10:45:55 BUILDING ENGINEER Hugo Restrepo MD [facility] CPT-16287 Level 3 Est. Patient 14:12:49 CDT Griffin lincoln [facility]-96555 Level 3 Est. Patient 17:37:24 CDT Carlton rich MD [facility] CPT-28005 Level 3 Est. Patient 16:51:54 CDT Carlton rich MD [facility] CPT-60264 Level 3 Est. Patient 12:18:11 CDT Hugo Restrepo MD [facility] CPT-33553 Level 3 Est. Patient 11:30:25 CDT Marcy crisostomo MD PhD [facility] CPT-06762 Level 3 Est. Patient 12:00:47 BUILDING ENGINEER Carlton rich MD [facility] CPT-51639 Level 3 Est. Patient 16:31:06 BUILDING ENGINEER Carlton rich MD [facility] CPT-14095 Level 3 Est. Patient 16:23:24 BUILDING ENGINEER Ridge tam [facility] CPT-98331 Level 3 Est. Patient 12:34:12 CDT Carlton rich MD [facility] CPT-72547 Level 2 Est. Patient 15:43:33 CDT Robi armstrong MD [facility] CPT-10266 Level 4 Est. Patient 14:04:44 CDT Carlton rich MD [facility] CPT-44720 Level 3 Est. Patient 05:47:59 CDT Ridge tam [facility] CPT-30328 Level 3 Est. Patient 13:12:53 BUILDING ENGINEER Carlton rich MD [facility] CPT-12083 Level 3 Est. Patient 14:26:53 CDT Hugo [...] CPT-J1100 Decadron 6mg (Dexamethasone) 14:32:13 CDT 2 CPT-82315 Hip bilat min 2V w AP pelvis 13:16:20 CDT 2 CPT-97298 Pelvis only 13:07:33 CDT CPT-54989 Spec Collection and Handling Fee 11:25:12 C DT CPT-12045 Fluzone Quadrivalent Intramuscular Suspe nsion 0.5 ML 14:31:55 CDT CPT-17346 Abx/Therapy Injection 13:28:47 BUILDING ENGINEER CPT-J2930 Solu Medrol 125 mg (Methyl Prednisolone Sodium Succinate) 12:00:47 BUILDING ENGINEER CPT-69180 Venipuncture Draw Fee 11:33:31 CDT CPT-80636 EKG Trac and Interp 11:21:09 CDT CPT-23145 Chest 2V Frontal and Lat 11:21:09 CDT 12/15 CPT-26272 Venipuncture Draw Fee 08:02:34 CDT CPT-88083 Chest 2V Frontal and Lat 05:47:59 CDT 06/05
--- OUTSIDE RECORDS SUMMARY | 2019-10-08 09:14 | XMS REPORT | Clinical Summary ---
Author Author Caitlin, Juliana Martinez Organization [employer] [facility] Address Unknown Phone [...] URI 465.9 Inactive Ridge Bess DO Ac chilkoot upper respiratory infections of unspecified site Body [...] Hugo Restrepo MD Sinusitis ICD-473.9 Inactive Hugo Retsrepo MD Bronchitis-Acute ICD-466.0 Inactive Hugo dominguez MD [...] po q12hr PRN Cough HYDROCOD POLST-CHLORPHEN POLST 03196664642 Active David Marianne LION TAMER Active PREDNISONE 20 MG ORAL TABLET Take 2 tabs day 1 and 2 and 1 t ab days 3 and 4 PREDNISONE 72437405539 No Longer Active David Marianne LION TAMER Active DOXYCYCLINE HYCLATE 100 MG ORAL CAPSULE 1 cap by mouth twice latasha ly DOXYCYCLINE HYCLATE 09660955266 No Longer Active David Marianne LION TAMER Active TOPAMAX 100 MG ORAL TABLET Take 1 tablet po bid TOPIRAMATE 60260937350 No Longer Active David Marianne LION TAMER Active TUSSIONEX PENNKINETIC ER 10-8 MG/5ML ORAL SUSPENSION E XTENDED RELEASE 5ml po q12hr PRN Cough HYDROCOD POLST-CHLORPHEN POLST 5 7372179413 No Longer Active David Marianne LION TAMER Active AUGMENTIN 875-125 MG ORAL TABLET 1 po BID x 10 days 20 18/04/16 AMOXICILLIN-POT CLAVULANATE 53868172881 No Longer Active David Marianne LION TAMER Active PREDNISONE 50 MG ORAL TABLET Take 50 mg dialy for 6 day s 7 PREDNISONE 73014539341 No Longer Active David Lopes LION TAMER Active TUSSIONEX PENNKINETIC ER 10-8 MG/5ML ORAL SUSPENSION E XTENDED RELEASE 5ml po q12hr PRN Cough HYDROCOD POLST-CHLORPHEN POLST 5 1054198540 No Longer Active Cherelle Torres RN Active PREDNISONE 20 MG ORAL TABLET two tabs by mouth today, then one tab by mouth days two and three and four PREDNISONE 26322973586 No Lo nger Active Cherelle Torres RN Active AZITHROMYCIN 250 MG ORAL TABLET 2 po qd x 1 day, then 1 po q d x 4 days AZITHROMYCIN 05060601878 No Longer Active Ridge Bess DO Active PREDNISONE 20 MG ORAL TABLET 2 po qd x 5 days P REDNISONE 35913699266 No Longer Active Perez Mora MD Active PROAIR HFA 108 (90 BASE) MCG/ACT INHALATION AEROSOL SO LUTION 2 puffs four times a day as needed ALBUTEROL SULFATE 81207665314 No Long er Active Becky AGUILARA Active ASPIRIN 81 MG ORAL TABLET 1 po qd ASPIRIN 52649822383 Active Carlton Hu MD Active PREDNISONE 20 MG ORAL TABLET 1 tab twice daily for 3 d ay, then one daily for three days PREDNISONE 05523507193 No Longer Active Carlton Hu MD Active AUGMENTIN 875-125 MG ORAL TABLET 1 po BID x 10 days 20 16/03/22 AMOXICILLIN-POT CLAVULANATE 95892426388 No Longer Active Elise Garcia APRN Active TERBINAFINE HCL 250 MG ORAL TABLET 1 qDay for nail fungus 7 TERBINAFINE HCL 41796573141 No Longer Active Carlton Hu MD A ctive AMOXICILLIN 500 MG ORAL CAPSULE 1 cap by mouth three times a day AMOXICILLIN 93904760964 No Longer Active Carlton Hu MD Active ELMIRON 100 MG ORAL CAPSULE 2 tablets in the am and 1 tablet at hs PENTOSAN POLYSULFATE SODIUM 36603350533 No Longer Active Robert jade Hu MD Active MUCINEX D 60-600 MG ORAL TABLET EXTENDED RELEASE 12 HOUR 1 t ab po q am PSEUDOEPHEDRINE-GUAIFENESIN 46625098331 No Longer Act nael Carlton Hu MD Active MUCINEX DM MAXIMUM STRENGTH 60-1200 MG ORAL TABLET EXT ENDED RELEASE 12 HOUR 1 tab po q am DEXTROMETHORPHAN-GUAIFENESIN 53211894636 No Longer Active Carlton Hu MD Active TUSSIONEX PENNKINETIC ER 10-8 MG/5ML ORAL SUSPENSION E XTENDED RELEASE 5ml po q12hr PRN Cough HYDROCOD POLST-CHLORPHEN POLST 5 6137013929 No Longer Active Carlton Hu MD Active POTASSIUM CHLORIDE ER 20 MEQ ORAL TABLET EXTENDED RELE ASE Take 1 by mouth 4 times daily for 7 days POTASSIUM CHLORIDE 19440922806 No Longer Active Carlton Hu MD Active ZITHROMAX 250 MG ORAL TABLET 2 po today, then 1 po q days 2-5 14/09/04 AZITHROMYCIN 69372812991 No Longer Active Elise Garcia APRN Active TUSSIONEX PENNKINETIC ER 10-8 MG/5ML ORAL SUSPENSION E XTENDED RELEASE 5 ml twice a day as needed for cough HYDROCOD POLST-CHLORPH EN POLST 04295801167 No Longer Active Elise Garcia APRN Active MONTELUKAST SODIUM 10 MG ORAL TABLET 1 po daily for Allergy MONTELUKAST SODIUM 49276796744 Active ALFREDO Holly Act nael TUSSIONEX PENNKINETIC ER 10-8 MG/5ML ORAL SUSPENSION E XTENDED RELEASE 5ml po q12hr PRN Cough HYDROCOD POLST-CHLORPHEN POLST 5 6833887125 No Longer Active Hugo Restrepo MD Active GABAPENTIN 100 MG ORAL CAPSULE 1 po BID for fibromyalgia GABAPENTIN 57593228523 Active Carlton Hu MD Active LYRICA 100 MG ORAL CAPSULE Take 1 tab po BID for fibromyalgia 20 11/08/21 PREGABALIN 15839321058 No Longer Active Elise Garcia APRN A ctive PREDNISONE 20 MG ORAL TABLET 2 tabs daily for 3 days, 1 tab daily for 3 days, 1/2 tab daily for 2 days PREDNISONE 11208702063 No Longer Active Jillina Cesarl LION TAMER Active TUSSIONEX PENNKINETIC ER 10-8 MG/5ML ORAL SUSPENSION E XTENDED RELEASE 5 mL PO q 12 hrs PRN cough HYDROCOD POLST-CHLORPHEN POLST 271793 74813 No Longer Active Jillina Frazell LION TAMER Active FLUTICASONE PROPIONATE 50 MCG/ACT NASAL SUSPENSION 2 s prays each nostril daily until bottle is empty FLUTICASONE PROPIONATE 120291621 99 No Longer Active Jillina Frazell LION TAMER Active ASMANEX 60 METERED DOSES 220 MCG/INH INHALATION AEROSO L POWDER BREATH ACTIVATED 1 puff bid with rinse after MOMETASONE FUROATE 9612495 4102 No Longer Active Jillina Cesarl LION TAMER Active ZITHROMAX Z-REYNA 250 MG ORAL TABLET 2 today, then 1 daily for 4 d ays AZITHROMYCIN 16988397086 No Longer Active Elise Garcia LION TAMER Active TUSSIONEX PENNKINETIC ER 10-8 MG/5ML ORAL SUSPENSION E XTENDED RELEASE 5ml po q12hr PRN Cough HYDROCOD POLST-CHLORPHEN POLST 5 5441839364 No Longer Active Elise Garcia LION TAMER Active PREDNISONE 20 MG ORAL TABLET 2 tabs daily for 3 days, 1 tab daily for 3 days, 1/2 tab daily for 2 days PREDNISONE 58047389914 No Longer Active Jillina Frazell LION TAMER Active AMOXICILLIN 500 MG ORAL CAPSULE 2 po BID x 10 days 201 09/29/08 AMOXICILLIN 59824746834 No Longer Active Jillina Frazell LION TAMER Act nael SINGULAIR 10 MG ORAL TABLET 1 po qday for allergies 20 14/01/12 MONTELUKAST SODIUM 10682902024 No Longer Active Carlton Hu MD Active LEVAQUIN 500 MG ORAL TABLET 1 tablet by mouth daily 20 13/09/24 LEVOFLOXACIN 46915199747 No Longer Active Carlton Hu MD Acti ve FLUTICASONE PROPIONATE 50 MCG/ACT NASAL SUSPENSION 2 s prays each nostril daily for 2 weeks, then 1 spray each nostril daily. FLUTICASONE PROPIONATE 92617943615 Active ALFREDO Holly Active ZITHROMAX 250 MG ORAL TABLET 2 po today, then 1 po q days 2-5 20 13/08/10 AZITHROMYCIN 51898002022 No Longer Active Elise Garcia APRN Active XANAX 0.5 MG ORAL TABLET one tablet by mouth daily prn anxiety 2015 ALPRAZOLAM 33547097861 Active ALFREDO Holly Active CYMBALTA 30 MG ORAL CAPSULE DELAYED RELEASE PARTICLES 1 cap by mouth daily for depression DULOXETINE HCL 22823687342 Active ALFREDO Holly Active CEFDINIR 300 MG ORAL CAPSULE 1 po BID x 10 days CEFDINIR 27810657813 No Longer Active Carlton Hu MD Active ZOCOR 40 MG ORAL TABLET 1 tab by mouth daily SI MVASTATIN 71659536866 No Longer Active Carlton Hu MD Active CYCLOBENZAPRINE HCL 10 MG ORAL TABLET 1 tablet by mouth BID prn had pain CYCLOBENZAPRINE HCL 36261732575 No Longer Active Jayden Hu MD Active LEVOFLOXACIN 500 MG ORAL TABLET 1 tab PO daily x 10 days LEVOFLOXACIN 07328862970 No Longer Active Carlton Hu MD Acti ve PREDNISONE 20 MG ORAL TABLET 3 tab PO qd x 2d, 2 tab P O qd x 2d, 1 tab PO qd x 2d, 1/2 tab PO qd x 2d PREDNISONE 68908542469 No Lo nger Active Carlton Hu MD Active FLUTICASONE PROPIONATE 50 MCG/ACT NASAL SUSPENSION 1 t o 2 sprays each nostril daily FLUTICASONE PROPIONATE 03352343774 No Longer Ac tive Blaine HERNANDEZ Active CHERATUSSIN AC 100-10 MG/5ML ORAL SYRUP 1 tsp by mouth every 4 hours as needed for cough GUAIFENESIN-CODEINE 82193785665 No Longe r Active Blaine HERNANDEZ Active PROMETHAZINE-CODEINE 6.25-10 MG/5ML ORAL SYRUP 1 tsp b y mouth every 6 hours if needed for cough PROMETHAZINE-CODEINE 76023639188 No Longer Active Blaine HERNANDEZ Active CHERATUSSIN AC 100-10 MG/5ML ORAL SYRUP 1 tsp by mouth every 4 hours as needed for cough GUAIFENESIN-CODEINE 57953197945 No Longe r Active Blaine HERNANDEZ Active ZITHROMAX Z-REYNA 250 MG ORAL TABLET 2 today, then 1 daily for 4 d ays AZITHROMYCIN 21504203780 No Longer Active Columba Raida Act nael ZITHROMAX 250 MG ORAL TABLET 2 po today, then 1 po q days 2-5 20 14/03/21 AZITHROMYCIN 62236009123 No Longer Active Carlton Hu MD Active ZITHROMAX Z-REYNA 250 MG ORAL TABLET 2 today, then 1 daily for 4 d ays AZITHROMYCIN 69941139987 No Longer Active Columba Raida Act nael AUGMENTIN 875-125 MG ORAL TABLET 1 po BID x 10 days 13/01/20 AMOXICILLIN-POT CLAVULANATE 22295364106 No Longer Active iDya De Guzman APRN Active ZITHROMAX 250 MG ORAL TABLET 2 po today, then 1 po q days 2-5 20 12/08/14 AZITHROMYCIN 08763784435 No Longer Active Carlton Hu MD Active TRAMADOL HCL 50 MG ORAL TABLET 1 po tid with ES Tylenol TRAMADOL HCL 30696533554 Active Adrienne Galvez J[employer]IOR [employer]LE DBA Active PREMARIN 0.625 MG ORAL TABLET TAKE 1 TAB BY MOUTH DAILY ESTROGENS CONJUGATED 07546536940 No Longer Active Ridge Bess DO A ctive CYMBALTA 30 MG ORAL CAPSULE DELAYED RELEASE PARTICLES 1 cap by mouth daily DULOXETINE HCL 90456719900 No Longer Active Ridge Ya ee DO Active AMOXICILLIN 500 MG ORAL CAPSULE 1 tab by mouth 3 times daily x 10 days AMOXICILLIN 11034802322 No Longer Active Carlton bustamante MD Active AMOXICILLIN 500 MG ORAL CAPSULE 1 tab by mouth 3 times daily x 10 days AMOXICILLIN 65793697080 No Longer Active Carlton bustamante MD Active PROMETHAZINE-CODEINE 6.25-10 MG/5ML ORAL SYRUP 1 tsp b y mouth every 8 hours prn cough PROMETHAZINE-CODEINE 42415950770 No Longer Acti ve Carlton Hu MD Active MEDROL 4 MG ORAL TABLET THERAPY PACK 6 pills x 1 day, then 5 pills x 1 day then 4 pills x 1 day, then 3 pills x 1 day, then 2 pills x 1 day, then 1 pill x 1 day, then stop METHYLPREDNISOLONE 29098789183 No Long er Active Perez Mora MD Active AZITHROMYCIN 250 MG ORAL TABLET 2 po qd x 1 day, then 1 po q d x 4 days AZITHROMYCIN 47778525058 No Longer Active Perez Ambriz MD Active SYMBICORT 160-4.5 MCG/ACT INHALATION AEROSOL 2 puffs bid wit h rinse after BUDESONIDE-FORMOTEROL FUMARATE 50969843898 N o Longer Active Perez Mora MD Active LYRICA 75 MG ORAL CAPSULE TAKE 1 CAPSULE BY MOUTH TWICE DAILY PREGABALIN 55136465864 No Longer Active Carlton Hu MD Acti ve TOPAMAX 25 MG ORAL TABLET 1 qHS x 1 week, then 1 BID x 1 week, then 1 qAM and 2 qHS x 1 week, then 2 BID (migraine prevention) T OPIRAMATE 74958609844 No Longer Active Jerica FUENTES Active TOPAMAX 50 MG ORAL TABLET take 1 tab po BID for migraines. 07/02 TOPIRAMATE 82591720756 No Longer Active Jerica FUENTES Active TRIAMCINOLONE ACETONIDE 0.1 % EXTERNAL CREAM apply three orger es daily prn rash TRIAMCINOLONE ACETONIDE 74229398977 No Longer Active Carlton Hu MD Active PAXIL 40 MG ORAL TABLET take 1 tab po qday for depression 0 PAROXETINE HCL 97758532991 Active ALFREDO Holly Active CHERATUSSIN AC 100-10 MG/5ML ORAL SYRUP 5ml po q6hr PRN Cough 20 13/04/14 GUAIFENESIN-CODEINE 04772948946 No Longer Active Carlton Hu MD Active MEDROL 4 MG ORAL TABLET THERAPY PACK 6 tabs on day 1, 5 tabs on day 2, 4 tabs on day 3, 3 tabs on day 4, 2 tabs on day 5, 1 tab on day 6 2013 METHYLPREDNISOLONE 14520103005 No Longer Active Perez Mora MD Active AZITHROMYCIN 250 MG ORAL TABLET 2 po qd x 1 day, then 1 po q d x 4 days AZITHROMYCIN 47528622491 No Longer Active Perez Ambriz MD Active PROPRANOLOL HCL 60 MG ORAL TABLET 1 PO Q D PROPRANOLOL HCL 90336225380 No Longer Active Perez Mora MD Activ e CHERATUSSIN AC 100-10 MG/5ML ORAL SYRUP take one tsp po Q 6h ours prn cough GUAIFENESIN-CODEINE 20891469962 No Longer Active Zia Mora MD Active AUGMENTIN 875-125 MG ORAL TABLET 1 tab by mouth twice daily with food AMOXICILLIN-POT CLAVULANATE 35568502671 No Longer Act nael Perez Mora MD Active CHERATUSSIN AC 100-10 MG/5ML ORAL SYRUP 1 tsp by mouth every 4 hours as needed for cough GUAIFENESIN-CODEINE 88899745309 No Longe r Active Hugo Restrepo MD Active ACETAMINOPHEN-CODEINE #3 300-30 MG ORAL TABLET 1 PO Q 4-6 HRS IL N PAIN ACETAMINOPHEN-CODEINE 57991877682 No Longer Active Hugo Restrepo MD Active LEVAQUIN 500 MG ORAL TABLET take one po QD LEVO FLOXACIN 51804974716 No Longer Active Griffin HERNANDEZ Active PREDNISONE 20 MG ORAL TABLET Take 3 tabs daily for 3 d ays, 2 tabs daily for 3 days, 1 tab daily for 3 days, 1/2 tab daily for 3 days 11/07 PREDNISONE 29193056708 No Longer Active Carlton Hu MD Acti ve AVELOX 400 MG ORAL TABLET 1 tab by mouth daily MOXIFLOXACIN HCL 77361151825 No Longer Active Carlton Hu MD Active CHERATUSSIN AC 100-10 MG/5ML ORAL SYRUP 1 tsp by mouth every 4 hours as needed for cough GUAIFENESIN-CODEINE 99943549950 No Longe r Active Hugo Restrepo MD Active AVELOX 400 MG ORAL TABLET 1 tab by mouth daily MOXIFLOXACIN HCL 60880493449 No Longer Active Marcy De La Rosa MD PhD Active TERBINAFINE HCL 250 MG ORAL TABLET 1 qDay T ERBINAFINE HCL 48185619543 No Longer Active Marcy De La Rosa MD PhD Active CHERATUSSIN AC 100-10 MG/5ML ORAL SYRUP 1 tsp by mouth every 4 hours as needed for cough GUAIFENESIN-CODEINE 59337721125 No Longe r Active Marcy De La Rosa MD PhD Active AVELOX 400 MG ORAL TABLET 1 tab by mouth daily MOXIFLOXACIN HCL 53167900452 No Longer Active Marcy De La Rosa MD PhD Active HYDROCODONE-ACETAMINOPHEN 5-325 MG ORAL TABLET 1 po q 6hr PRN co ugh HYDROCODONE-ACETAMINOPHEN 56384947987 No Longer Active Marcy De La Rosa MD PhD Active PREDNISONE 20 MG ORAL TABLET 2 tabs daily for 3 days, 1 tab daily for 3 days, 1/2 tab daily for 2 days PREDNISONE 90732458072 No Longer Active Carlton uH MD Active CEFDINIR 300 MG ORAL CAPSULE by mouth twice a day 2011 CEFDINIR 75135335825 No Longer Active Carlton Hu MD Acti ve HYDROCHLOROTHIAZIDE 25 MG ORAL TABLET 1 TAB PO DAILY HYDROCHLOROTHIAZIDE 82964443244 Active ALFREDO Holly Ac tive ACETAMINOPHEN-CODEINE #3 300-30 MG ORAL TABLET 1 tablet po q 4-6 hrs prn pain ACETAMINOPHEN-CODEINE 63190910600 No Longer Active Ridge Bess DO Active ZITHROMAX 250 MG ORAL TABLET 2 po today, then 1 po q days 2-5 20 03/07/07 AZITHROMYCIN 76219213048 No Longer Active Carlton Hu MD Active CHERATUSSIN AC 100-10 MG/5ML ORAL SYRUP take 1 tsp po q4-6 h ours prn cough GUAIFENESIN-CODEINE 67814055367 No Longer Active Jayden Hu MD Active ACETAMINOPHEN-CODEINE #3 300-30 MG ORAL TABLET 1 PO Q 4-6 HR PRN PAIN ACETAMINOPHEN-CODEINE 89193386371 No Longer Active Da raimundo Hu MD Active LORTAB 7.5-500 MG/15ML ORAL ELIXIR 7.5 ml po q 4 hour prn cough HYDROCODONE-ACETAMINOPHEN 39029523995 No Longer Active Carlton Hu MD Active PREDNISONE 20 MG ORAL TABLET 1 po bid 3 days, then 1 po q day 3 days PREDNISONE 16467078217 No Longer Active Carlton Hu MD Active CEFDINIR 300 MG ORAL CAPSULE by mouth twice a day 2011 CEFDINIR 98113548706 No Longer Active Carlton uH MD Acti ve CEFDINIR 300 MG ORAL CAPSULE by mouth twice a day 2010 CEFDINIR 47783300626 No Longer Active Carlton Hu MD Acti ve CEFDINIR 300 MG ORAL CAPSULE by mouth twice a day 2010 CEFDINIR 99801875077 No Longer Active Carlton Hu MD Acti ve TESSALON PERLES 100 MG ORAL CAPSULE 1 tablet by mouth 3 times daily as needed for cough BENZONATATE 29994946905 No Longer Active Carlton Hu MD Active CEFDINIR 300 MG ORAL CAPSULE by mouth twice a day 2010 CEFDINIR 86109553457 No Longer Active Carlton Hu MD Acti ve ZITHROMAX Z-REYNA 250 MG ORAL TABLET 2 today, then 1 daily for 4 d ays AZITHROMYCIN 03175024295 No Longer Active Hugo Restrepo MD Active TESSALON PERLES 100 MG ORAL CAPSULE 1 tablet by mouth 3 times daily as needed for cough TESSALON PERLES 100 MG ORAL CAPSULE 73923 7 BENZONATATE Inactive PREDNISONE 20 MG ORAL TABLET 1 po bid 3 days, then 1 po q day 3 days PREDNISONE 20 MG ORAL TABLET 372485 PREDNISONE Greer ctive LORTAB 7.5-500 MG/15ML ORAL [...] cough CHERATUSSIN AC 100-10 MG/5ML ORAL SYRUP 312513 GUAIFENESIN-CODEINE Inactive ACETAMINOPHEN-CODEINE #3 300-30 MG ORAL TABLET 1 tablet po q 4-6 hrs prn pain ACETAMINOPHEN-CODEINE #3 300-30 MG ORAL TABLET ACETAMINOPHEN-CODEINE Inactive HYDROCODONE-ACETAMINOPHEN 5-325 MG ORAL TABLET 1 po q 6hr PRN co ugh HYDROCODONE-ACETAMINOPHEN 5-325 MG ORAL TABLET 000271 HYDROCODONE-ACETAMINOPHEN Inactive AVELOX 400 MG ORAL TABLET 1 tab by mouth daily AVELOX 400 MG ORAL TABLET 587283 MOXIFLOXACIN HCL Inactive CHERATUSSIN AC 100-10 MG/5ML ORAL SYRUP 1 tsp by mouth every 4 hours as needed for cough CHERATUSSIN AC 100-10 MG/5ML ORAL SYRUP 9 18830 GUAIFENESIN-CODEINE Inactive TERBINAFINE HCL 250 MG ORAL TABLET 1 qDay 07/08 TERBINAFINE HCL 250 MG ORAL TABLET 091748 TERBINAFINE HCL Inactive CHERATUSSIN AC 100-10 MG/5ML ORAL SYRUP 1 tsp by mouth every 4 hours as needed for cough CHERATUSSIN AC 100-10 MG/5ML ORAL SYRUP 9 89856 GUAIFENESIN-CODEINE Inactive ACETAMINOPHEN-CODEINE #3 300-30 MG ORAL TABLET 1 PO Q 4-6 HRS IL N PAIN ACETAMINOPHEN-CODEINE #3 300-30 MG ORAL TABLET ACETAMINOPHEN-CODEINE Inactive CHERATUSSIN AC 100-10 MG/5ML ORAL SYRUP 1 tsp by mouth every 4 hours as needed for cough CHERATUSSIN AC 100-10 MG/5ML ORAL SYRUP 9 58928 GUAIFENESIN-CODEINE Inactive AUGMENTIN 875-125 MG ORAL TABLET 1 tab by mouth twice daily with food AUGMENTIN 875-125 MG ORAL TABLET 964753 AMOXICIL MADELINE-POT CLAVULANATE Inactive CHERATUSSIN AC 100-10 MG/5ML ORAL SYRUP take one tsp po Q 6h ours prn cough CHERATUSSIN AC 100-10 MG/5ML ORAL SYRUP 493592 GUAIFENESIN-CODEINE Inactive PROPRANOLOL HCL 60 MG ORAL TABLET 1 PO Q D PROPRANOLOL HCL 60 MG ORAL TABLET 996077 PROPRANOLOL HCL Inactive TOPAMAX 50 MG ORAL TABLET take 1 tab po BID for migraines. 07/02 TOPAMAX 50 MG ORAL TABLET 449543 TOPIRAMATE Inacti ve TOPAMAX 25 MG ORAL TABLET 1 qHS x 1 week, then 1 BID x 1 week, then 1 qAM and 2 qHS x 1 week, then 2 BID (migraine prevention) TOPAMAX 25 MG ORAL TABLET 240664 TOPIRAMATE Inactive LYRICA 75 MG ORAL CAPSULE TAKE 1 CAPSULE BY MOUTH TWICE DAILY LYRICA 75 MG ORAL CAPSULE PREGABALIN Inactive SYMBICORT 160-4.5 MCG/ACT INHALATION AEROSOL 2 puffs bid wit h rinse after SYMBICORT 160-4.5 MCG/ACT INHALATION AEROSOL BUDESONIDE- FORMOTEROL FUMARATE Inactive PROMETHAZINE-CODEINE 6.25-10 MG/5ML ORAL SYRUP 1 tsp b y mouth every 8 hours prn cough PROMETHAZINE-CODEINE 6.25-10 MG/ 5ML ORAL SYRUP 464817 PROMETHAZINE-CODEINE Inactive CYMBALTA 30 MG ORAL CAPSULE DELAYED RELEASE PARTICLES 1 cap by mouth daily CYMBALTA 30 MG ORAL CAPSULE DELAYED RELE ASE PARTICLES 917849 DULOXETINE HCL Inactive PREMARIN 0.625 MG ORAL TABLET TAKE 1 TAB BY MOUTH DAILY PREMARIN 0.625 MG ORAL TABLET ESTROGENS CONJUGATED Inactive CHERATUSSIN AC 100-10 MG/5ML ORAL SYRUP 1 tsp by mouth every 4 hours as needed for cough CHERATUSSIN AC 100-10 MG/5ML ORAL SYRUP 9 72369 GUAIFENESIN-CODEINE Inactive PROMETHAZINE-CODEINE 6.25-10 MG/5ML ORAL SYRUP 1 tsp b y mouth every 6 hours if needed for cough PROMETHAZINE-CODEINE 6.25-10 MG/5ML ORAL SYRUP 884127 PROMETHAZINE-CODEINE Inactive CHERATUSSIN AC 100-10 MG/5ML ORAL SYRUP 1 tsp by mouth every 4 hours as needed for cough CHERATUSSIN AC 100-10 MG/5ML ORAL SYRUP 9 57635 GUAIFENESIN-CODEINE Inactive FLUTICASONE PROPIONATE 50 MCG/ACT NASAL SUSPENSION 1 t o 2 sprays each nostril daily FLUTICASONE PROPIONATE 50 MCG/AC T NASAL SUSPENSION 4694574 FLUTICASONE PROPIONATE Inactive PREDNISONE 20 MG ORAL TABLET 3 tab PO qd x 2d, 2 tab P O qd x 2d, 1 tab PO qd x 2d, 1/2 tab PO qd x 2d PREDNISONE 20 MG ORAL TAB LET 742974 PREDNISONE Inactive LEVOFLOXACIN 500 MG ORAL TABLET 1 tab PO daily x 10 days LEVOFLOXACIN 500 MG ORAL TABLET 573884 LEVOFLOXACIN Inactive CYCLOBENZAPRINE HCL 10 MG ORAL TABLET 1 tablet by mouth BID prn had pain CYCLOBENZAPRINE HCL 10 MG ORAL TABLET 096832 CYCLOBENZAPRINE HCL Inactive ZOCOR 40 MG ORAL TABLET 1 tab by mouth daily 4 ZOCOR 40 MG ORAL TABLET 547372 SIMVASTATIN Inactive TUSSIONEX PENNKINETIC ER 10-8 MG/5ML [...] FLUTICASONE PROPIO EFE 50 MCG/ACT NASAL SUSPENSION 8489485 FLUTICASONE PROPIONATE Inactive TUSSIONEX PENNKINETIC ER 10-8 [...] three days PREDNISONE 20 MG ORAL TABLET 468533 PREDNIS ONE Inactive PROAIR HFA 108 (90 BASE) MCG/ACT INHALATION AEROSOL SO LUTION 2 puffs four times a day as needed PROAIR HFA 108 (90 B ASE) MCG/ACT INHALATION AEROSOL SOLUTION ALBUTEROL SULFATE Inactive PREDNISONE 20 MG ORAL TABLET two tabs by mouth today, then one tab by mouth days two and three and four PREDNISONE 20 MG ORAL TAB LET 945470 PREDNISONE Inactive TUSSIONEX PENNKINETIC ER 10-8 MG/5ML [...] bid 04/20 TOPAMAX 100 MG ORAL TABLET 423168 TOPIRAMATE Inactive ZITHROMAX Z-REYNA 250 MG ORAL TABLET 2 today, then 1 daily for 4 d ays ZITHROMAX Z-REYNA 250 MG ORAL TABLET 912887 AZITHROMYCIN Inactive CEFDINIR 300 MG ORAL CAPSULE [...] 20 03/07/07 ZITHROMAX 250 MG ORAL TABLET 934219 AZITHROMYCIN [place] ctive CEFDINIR 300 MG ORAL CAPSULE by mouth twice a day 2011 CEFDINIR 300 MG ORAL CAPSULE 575440 CEFDINIR Inactive PREDNISONE 20 MG ORAL TABLET 2 tabs daily for 3 days, 1 tab daily for 3 days, 1/2 tab daily for 2 days PREDNISONE 20 MG ORAL T ABLET 731227 PREDNISONE Inactive AVELOX 400 MG ORAL TABLET 1 tab by mouth daily AVELOX 400 MG ORAL TABLET 704500 MOXIFLOXACIN HCL Inactive AVELOX 400 MG ORAL TABLET 1 tab by mouth daily AVELOX 400 MG ORAL TABLET 483175 MOXIFLOXACIN HCL Inactive PREDNISONE 20 MG ORAL TABLET Take 3 tabs daily for 3 d ays, 2 tabs daily for 3 days, 1 tab daily for 3 days, 1/2 tab daily for 3 days 11/07 PREDNISONE 20 MG ORAL TABLET 709795 PREDNISONE Inactive LEVAQUIN 500 MG ORAL TABLET take one po QD LEVAQUIN 500 MG ORAL TABLET 892351 LEVOFLOXACIN Inactive AZITHROMYCIN 250 MG ORAL TABLET 2 po qd x 1 day, then 1 po q d x 4 days AZITHROMYCIN 250 MG ORAL TABLET 046616 AZITHROMY GIOVANNI Inactive MEDROL 4 MG ORAL TABLET THERAPY PACK 6 tabs on day 1, 5 tabs on day 2, 4 tabs on day 3, 3 tabs on day 4, 2 tabs on day 5, 1 tab on day 6 2013 MEDROL 4 MG ORAL TABLET THERAPY PACK 143124 METHYLPREDNISOLONE [place] ctive CHERATUSSIN AC 100-10 MG/5ML ORAL SYRUP 5ml po q6hr PRN Cough 20 13/04/14 CHERATUSSIN AC 100-10 MG/5ML ORAL SYRUP 786160 GUAIFENE SIN-CODEINE Inactive TRIAMCINOLONE ACETONIDE 0.1 % EXTERNAL CREAM apply three roger es daily prn rash TRIAMCINOLONE ACETONIDE 0.1 % EXTERNAL CREAM 101 4314 TRIAMCINOLONE ACETONIDE Inactive AZITHROMYCIN 250 MG ORAL TABLET 2 po qd x 1 day, then 1 po q d x 4 days AZITHROMYCIN 250 MG ORAL TABLET 206187 AZITHROMY GIOVANNI Inactive MEDROL 4 MG ORAL TABLET THERAPY PACK 6 pills x 1 day, then 5 pills x 1 day then 4 pills x 1 day, then 3 pills x 1 day, then 2 pills x 1 day, then 1 pill x 1 day, then stop MEDROL 4 MG ORAL TABLET THERAPY PACK 252238 METHYLPREDNISOLONE Inactive AMOXICILLIN 500 MG ORAL CAPSULE 1 tab by mouth 3 times daily x 10 days AMOXICILLIN 500 MG ORAL CAPSULE 493408 AMOXICILL IN Inactive AMOXICILLIN 500 MG ORAL CAPSULE 1 tab by mouth 3 times daily x 10 days AMOXICILLIN 500 MG ORAL CAPSULE 612079 AMOXICILL IN Inactive ZITHROMAX 250 MG ORAL TABLET 2 po today, then 1 po q days 2-5 20 12/08/14 ZITHROMAX 250 MG ORAL TABLET 221268 AZITHROMYCIN [place] ctive AUGMENTIN 875-125 MG ORAL TABLET 1 po BID x 10 days 20 13/01/20 AUGMENTIN 875-125 MG ORAL TABLET 172281 AMOXICILLIN-POT CLAVULANATE Inactive ZITHROMAX Z-REYNA 250 MG ORAL TABLET 2 today, then 1 daily for 4 d ays ZITHROMAX Z-REYNA 250 MG ORAL TABLET [id number] AZITHROMYCIN Inactive ZITHROMAX 250 MG ORAL TABLET 2 po today, then 1 po q days 2-5 20 14/03/21 ZITHROMAX 250 MG ORAL TABLET 854054 AZITHROMYCIN Greer ctive ZITHROMAX Z-REYNA 250 MG ORAL TABLET 2 today, then 1 daily for 4 d ays ZITHROMAX Z-REYNA 250 MG ORAL TABLET 882754 AZITHROMYCIN Inactive CEFDINIR 300 MG ORAL CAPSULE 1 po BID x 10 days 06/21 CEFDINIR 300 MG ORAL CAPSULE 521216 CEFDINIR Inactive ZITHROMAX 250 MG ORAL TABLET 2 po today, then 1 po q days 2-5 20 13/08/10 ZITHROMAX 250 MG ORAL TABLET 425387 AZITHROMYCIN Greer ctive LEVAQUIN 500 MG ORAL TABLET 1 tablet by mouth daily 13/09/24 LEVAQUIN 500 MG ORAL TABLET 943735 LEVOFLOXACIN Inactive SINGULAIR 10 MG ORAL TABLET 1 po qday for allergies 20 14/01/12 SINGULAIR 10 MG ORAL TABLET 450195 MONTELUKAST SODIUM Inactive AMOXICILLIN 500 MG ORAL CAPSULE 2 po BID x 10 days 201 09/29/08 AMOXICILLIN 500 MG ORAL CAPSULE 421324 AMOXICILLIN Inactive PREDNISONE 20 MG ORAL TABLET 2 tabs daily for 3 days, 1 tab daily for 3 days, 1/2 tab daily for 2 days PREDNISONE 20 MG ORAL T ABLET 211479 PREDNISONE Inactive ZITHROMAX Z-REYNA 250 MG ORAL TABLET 2 today, then 1 daily for 4 d ays ZITHROMAX Z-REYNA 250 MG ORAL TABLET 577477 AZITHROMYCIN Inactive PREDNISONE 20 MG ORAL TABLET 2 tabs daily for 3 days, 1 tab daily for 3 days, 1/2 tab daily for 2 days PREDNISONE 20 MG ORAL T ABLET 034186 PREDNISONE Inactive ZITHROMAX 250 MG ORAL TABLET 2 po today, then 1 po q days 2-5 20 14/09/04 ZITHROMAX 250 MG ORAL TABLET 024673 AZITHROMYCIN Greer ctive AMOXICILLIN 500 MG ORAL CAPSULE 1 cap by mouth three times a day AMOXICILLIN 500 MG ORAL CAPSULE 247773 AMOXICILLIN Inactive TERBINAFINE HCL 250 MG ORAL TABLET 1 qDay for nail fungus 7 TERBINAFINE HCL 250 MG ORAL TABLET 004915 TERBINAFINE HCL Inact nael AUGMENTIN 875-125 MG ORAL TABLET 1 po BID x 10 days 16/03/22 AUGMENTIN 875-125 MG ORAL TABLET 227111 AMOXICILLIN-POT CLAVULANATE Inactive PREDNISONE 20 MG ORAL TABLET 2 po qd x 5 days PREDNISONE 20 MG ORAL TABLET 640128 PREDNISONE Inactive AZITHROMYCIN 250 MG ORAL TABLET 2 po qd x 1 day, then 1 po q d x 4 days AZITHROMYCIN 250 MG ORAL TABLET 122572 AZITHROMY GIOVANNI Inactive PREDNISONE 50 MG ORAL TABLET Take 50 mg dialy for 6 day s 7 PREDNISONE 50 MG ORAL TABLET 159216 PREDNISONE Inactive AUGMENTIN 875-125 MG ORAL TABLET 1 po BID x 10 days 20 18/04/16 AUGMENTIN 875-125 MG ORAL TABLET 444231 AMOXICILLIN-POT CLAVULANATE Inactive DOXYCYCLINE HYCLATE 100 MG ORAL CAPSULE 1 cap by mouth twice latasha ly DOXYCYCLINE HYCLATE 100 MG ORAL CAPSULE 2417582 DOXYCYCL INE HYCLATE Inactive PREDNISONE 20 MG ORAL TABLET Take 2 tabs day 1 and 2 and 1 t ab days 3 and 4 PREDNISONE 20 MG ORAL TABLET 316507 PREDNISONE Inactive Vital Signs Date Name Value [...] - Chem istry sodium, serum 139 mmol/L 645-794 5925/03/19 potassium, serum 3.6 mmol/L 3.5-5.2 chloride, serum 100 mmol/L 98-107 carbon dioxide, venous blood 30.3 mmol/L 21.0-32 .0 blood glucose 101 mg/dL 65-110 calcium, serum 9.4 mg/dL 8.5-10.1 urea nitrogen, blood 10 mg/dL 7-18 creatinine, serum 0.96 mg/dL 0.60-1.30 sodium, serum 139 mmol/L 886-013 8651/10/12 potassium, serum 3.8 mmol/L 3.5-5.2 chloride, serum 102 mmol/L 98-107 carbon dioxide, venous blood 29.4 mmol/L 21.0-32 .0 blood glucose 103 mg/dL 65-95 calcium, serum 8.8 mg/dL 8.5-10.1 urea nitrogen, blood 10 mg/dL 7-18 creatinine, serum 0.97 mg/dL 0.60-1.30 Estimated Glomerular Filtration Rate (calc) 62 (?) mL/min/1.73m2 = OR > 60 mL/min Encounters Code Encounter Date Provider Facility CPT-22982 Level 3 Est. Patient 09:46:49 [employer]BLING DEALER David lion [facility]-35918 [id number] Vst-Est Level III 11:12:16 CDT Yanet Bess DO [facility]-14717 Level 3 Est. Patient 11:34:49 G[employer]BLING DEALER Perez Mora MD [facility] CPT-37079 Level 4 Est. Patient 09:51:32 [employer]BLING DEALER Carlton rich MD [facility]-30976 Level 3 Est. Patient 10:26:00 [employer]BLING DEALER Elise stephenson [facility]-45838 Level 3 Est. Patient 13:35:41 GAMBLING DEALER Carlton rich MD [facility]-85062 Level 3 Est. Patient 10:03:52 G[employer]BLING DEALER Carlton rich MD [facility]-71031 Level 3 Est. Patient 12:17:50 CDT Hugo Restrepo MD [facility] CPT-35047 Level 3 Est. Patient 13:42:38 CDT Elise stephenson [facility] CPT-04936 Level 3 Est. Patient 13:23:51 CDT Diya cobian [facility]-18874 Level 3 Est. Patient 14:22:19 [employer]BLING DEALER Diya cobian [facility] CPT-45945 Level 3 Est. Patient 10:11:46 CDT Carlton rich MD [facility] CPT-03308 Level 3 Est. Patient 17:29:43 CDT Elise [facility] CPT-73207 Level 3 Est. Patient 11:58:06 CDT Elise [facility] CPT-16867 Level 4 Est. Patient 14:36:51 CDT Carlton rich MD [facility] CPT-31590 Level 3 Est. Patient 18:16:00 [employer]BLING DEALER Blaine Freeman [facility] CPT-90661 Level 3 Est. Patient 09:45:49 GAMBLING DEALER Carlton rich MD [facility] CPT-57369 Level 3 Est. Patient 13:19:20 CDT Carlton rich MD [facility] CPT-21126 Level 3 Est. Patient 13:06:43 CDT Ridge tam DO [facility] CPT-35538 Level 3 Est. Patient 10:03:07 CDT Perez Mora MD [facility] CPT-24394 Level 3 Est. Patient 19:50:35 [employer]BLING DEALER Carlton rich MD [facility] CPT-42465 Level 4 Est. Patient 18:05:01 GAMBLING DEALER Carlton rich MD [facility] CPT-38006 Level 3 Est. Patient 10:45:55 G[employer]BLING DEALER Hugo Restrepo MD [facility] CPT-51606 Level 3 Est. Patient 14:12:49 CDT Griffin lincoln [facility]-73022 Level 3 Est. Patient 17:37:24 CDT Carlton rich MD [facility] CPT-92204 Level 3 Est. Patient 16:51:54 CDT Carlton rich MD [facility] CPT-19317 Level 3 Est. Patient 12:18:11 CDT Hugo Restrepo MD [facility] CPT-19584 Level 3 Est. Patient 11:30:25 CDT Marcy crisostomo MD PhD [facility] CPT-07335 Level 3 Est. Patient 12:00:47 G[employer]BLING DEALER Carlton rich MD [facility] CPT-80985 Level 3 Est. Patient 16:31:06 GAMBLING DEALER Carlton rich MD [facility] CPT-76264 Level 3 Est. Patient 16:23:24 GAMBLING DEALER Ridge tam [facility] CPT-32222 Level 3 Est. Patient 12:34:12 CDT Carlton rich MD [facility] CPT-81014 Level 2 Est. Patient 15:43:33 CDT Robi armstrong MD [facility] CPT-56055 Level 4 Est. Patient 14:04:44 CDT Carlton rich MD [facility] CPT-70423 Level 3 Est. Patient 05:47:59 CDT Ridge tam [facility] CPT-54020 Level 3 Est. Patient 13:12:53 GAMBLING DEALER Carlton rich MD [facility] CPT-16778 Level 3 Est. Patient 14:26:53 CDT Hugo [...] CPT-J1100 Decadron 6mg (Dexamethasone) 14:32:13 CDT 2 CPT-76348 Hip bilat min 2V w AP pelvis 13:16:20 CDT 2 CPT-30134 Pelvis only 13:07:33 CDT CPT-63096 Spec Collection and Handling Fee 11:25:12 C DT CPT-75294 Fluzone Quadrivalent Intramuscular Suspe nsion 0.5 ML 14:31:55 CDT CPT-74317 Abx/Therapy Injection 13:28:47 [employer]BLING DEALER CPT-J2930 Solu Medrol 125 mg (Methyl Prednisolone Sodium Succinate) 12:00:47 G[employer]BLING DEALER CPT-78843 Venipuncture Draw Fee 11:33:31 CDT CPT-07843 EKG Trac and Interp 11:21:09 CDT CPT-27588 Chest 2V Frontal and Lat 11:21:09 CDT 12/15 CPT-72524 Venipuncture Draw Fee 08:02:34 CDT CPT-13698 Chest 2V Frontal and Lat 05:47:59 CDT 06/05
--- OUTSIDE RECORDS SUMMARY | 2019-10-08 09:15 | XMS REPORT | Clinical Summary ---
Author Author Caitlin, Juliana Martinez Organization [facility] Address Unknown Phone Unavailable Allergies, [...] URI 465.9 Inactive Ridge Bess DO Ac qawalangin upper respiratory infections of unspecified site Body [...] po q12hr PRN Cough HYDROCOD POLST-CHLORPHEN POLST [id number] Active David Marianne BULKER Active PREDNISONE 20 MG ORAL TABLET Take 2 tabs day 1 and 2 and 1 t ab days 3 and 4 PREDNISONE 44058097721 No Longer Active David Marianne BULKER Active DOXYCYCLINE HYCLATE 100 MG ORAL CAPSULE 1 cap by mouth twice latasha ly DOXYCYCLINE HYCLATE 86853951549 Active David Marianne BULKER Active TOPAMAX 100 MG ORAL TABLET Take 1 tablet po bid TOPIRAMATE 76490880579 No Longer Active David Marianne BULKER Active TUSSIONEX PENNKINETIC ER 10-8 MG/5ML ORAL SUSPENSION E XTENDED RELEASE 5ml po q12hr PRN Cough HYDROCOD POLST-CHLORPHEN POLST 5 8490033262 No Longer Active David Marianne BULKER Active AUGMENTIN 875-125 MG ORAL TABLET 1 po BID x 10 days 20 18/04/16 AMOXICILLIN-POT CLAVULANATE 77886872494 No Longer Active David Marianne BULKER Active PREDNISONE 50 MG ORAL TABLET Take 50 mg dialy for 6 day s 7 PREDNISONE 39322632067 No Longer Active David Lopes APRN Active TUSSIONEX PENNKINETIC ER 10-8 MG/5ML ORAL SUSPENSION E XTENDED RELEASE 5ml po q12hr PRN Cough HYDROCOD POLST-CHLORPHEN POLST 5 6526877271 No Longer Active Cherelle Torres RN Active PREDNISONE 20 MG ORAL TABLET two tabs by mouth today, then one tab by mouth days two and three and four PREDNISONE 99454493526 No Lo nger Active Cherelle Torres RN Active AZITHROMYCIN 250 MG ORAL TABLET 2 po qd x 1 day, then 1 po q d x 4 days AZITHROMYCIN 53347089321 No Longer Active Ridge Bess DO Active PREDNISONE 20 MG ORAL TABLET 2 po qd x 5 days P REDNISONE 71747281576 No Longer Active Perez Mora MD Active PROAIR HFA 108 (90 BASE) MCG/ACT INHALATION AEROSOL SO LUTION 2 puffs four times a day as needed ALBUTEROL SULFATE 44376564862 No Long er Active Becky AGUILARA Active ASPIRIN 81 MG ORAL TABLET 1 po qd ASPIRIN 58567914625 Active Carlton Hu MD Active PREDNISONE 20 MG ORAL TABLET 1 tab twice daily for 3 d ay, then one daily for three days PREDNISONE 08578185016 No Longer Active Carlton Hu MD Active AUGMENTIN 875-125 MG ORAL TABLET 1 po BID x 10 days 16/03/22 AMOXICILLIN-POT CLAVULANATE 65958069810 No Longer Active Elise Garcia APRN Active TERBINAFINE HCL 250 MG ORAL TABLET 1 qDay for nail fungus 7 TERBINAFINE HCL 65109213144 No Longer Active Carlton Hu MD A ctive AMOXICILLIN 500 MG ORAL CAPSULE 1 cap by mouth three times a day AMOXICILLIN 46186740948 No Longer Active Carlton Hu MD Active ELMIRON 100 MG ORAL CAPSULE 2 tablets in the am and 1 tablet at hs PENTOSAN POLYSULFATE SODIUM 26897021592 No Longer Active Robert jade Hu MD Active MUCINEX D 60-600 MG ORAL TABLET EXTENDED RELEASE 12 HOUR 1 t ab po q am PSEUDOEPHEDRINE-GUAIFENESIN 89966930309 No Longer Act nael Carlton Hu MD Active MUCINEX DM MAXIMUM STRENGTH 60-1200 MG ORAL TABLET EXT ENDED RELEASE 12 HOUR 1 tab po q am DEXTROMETHORPHAN-GUAIFENESIN 63765449747 No Longer Active Carlton Hu MD Active TUSSIONEX PENNKINETIC ER 10-8 MG/5ML ORAL SUSPENSION E XTENDED RELEASE 5ml po q12hr PRN Cough HYDROCOD POLST-CHLORPHEN POLST 5 6903066092 No Longer Active Carlton Hu MD Active POTASSIUM CHLORIDE ER 20 MEQ ORAL TABLET EXTENDED RELE ASE Take 1 by mouth 4 times daily for 7 days POTASSIUM CHLORIDE 94011495187 No Longer Active Carlton Hu MD Active ZITHROMAX 250 MG ORAL TABLET 2 po today, then 1 po q days 2-5 14/09/04 AZITHROMYCIN 95687425109 No Longer Active Elise Garcia APRN Active TUSSIONEX PENNKINETIC ER 10-8 MG/5ML ORAL SUSPENSION E XTENDED RELEASE 5 ml twice a day as needed for cough HYDROCOD POLST-CHLORPH EN POLST 02190686136 No Longer Active Elise Garcia APRN Active MONTELUKAST SODIUM 10 MG ORAL TABLET 1 po daily for Allergy MONTELUKAST SODIUM 32645761933 Active Carlton Hu MD Ac tive TUSSIONEX PENNKINETIC ER 10-8 MG/5ML ORAL SUSPENSION E XTENDED RELEASE 5ml po q12hr PRN Cough HYDROCOD POLST-CHLORPHEN POLST 5 0903706658 No Longer Active Hugo Restrepo MD Active GABAPENTIN 100 MG ORAL CAPSULE 1 po BID for fibromyalgia GABAPENTIN 81449449282 Active Carlton Hu MD Active LYRICA 100 MG ORAL CAPSULE Take 1 tab po BID for fibromyalgia 20 11/08/21 PREGABALIN 27929728631 No Longer Active Elise Garcia APRN A ctive PREDNISONE 20 MG ORAL TABLET 2 tabs daily for 3 days, 1 tab daily for 3 days, 1/2 tab daily for 2 days PREDNISONE 19867552964 No Longer Active Venullina Cesarl BULKER Active TUSSIONEX PENNKINETIC ER 10-8 MG/5ML ORAL SUSPENSION E XTENDED RELEASE 5 mL PO q 12 hrs PRN cough HYDROCOD POLST-CHLORPHEN POLST 014918 35993 No Longer Active Jillina Frazell BULKER Active FLUTICASONE PROPIONATE 50 MCG/ACT NASAL SUSPENSION 2 s prays each nostril daily until bottle is empty FLUTICASONE PROPIONATE 509397537 99 No Longer Active Jillina Frazell BULKER Active ASMANEX 60 METERED DOSES 220 MCG/INH INHALATION AEROSO L POWDER BREATH ACTIVATED 1 puff bid with rinse after MOMETASONE FUROATE 5922321 4102 No Longer Active Venullina Cesarl BULKER Active ZITHROMAX Z-REYNA 250 MG ORAL TABLET 2 today, then 1 daily for 4 d ays AZITHROMYCIN 21912267279 No Longer Active Elise Garcia APRN Active TUSSIONEX PENNKINETIC ER 10-8 MG/5ML ORAL SUSPENSION E XTENDED RELEASE 5ml po q12hr PRN Cough HYDROCOD POLST-CHLORPHEN POLST 5 6060914592 No Longer Active Elise Garcia APRN Active PREDNISONE 20 MG ORAL TABLET 2 tabs daily for 3 days, 1 tab daily for 3 days, 1/2 tab daily for 2 days PREDNISONE 31782887619 No Longer Active Jillina Daphnezell BULKER Active AMOXICILLIN 500 MG ORAL CAPSULE 2 po BID x 10 days 201 09/29/08 AMOXICILLIN 99765683028 No Longer Active Jillina Frazell BULKER Act nael SINGULAIR 10 MG ORAL TABLET 1 po qday for allergies 20 14/01/12 MONTELUKAST SODIUM 31290880087 No Longer Active Carlton Hu MD Active LEVAQUIN 500 MG ORAL TABLET 1 tablet by mouth daily 20 13/09/24 LEVOFLOXACIN 85406537824 No Longer Active Carlton Hu MD Acti ve FLUTICASONE PROPIONATE 50 MCG/ACT NASAL SUSPENSION 2 s prays each nostril daily for 2 weeks, then 1 spray each nostril daily. FLUTICASONE PROPIONATE 83864478681 Active ALFREDO Holly Active ZITHROMAX 250 MG ORAL TABLET 2 po today, then 1 po q days 2-5 20 13/08/10 AZITHROMYCIN 73486468027 No Longer Active Elise Garcia APRN Active XANAX 0.5 MG ORAL TABLET one tablet by mouth daily prn anxiety 2015 ALPRAZOLAM 22608392073 Active ALFREDO Holly Active CYMBALTA 30 MG ORAL CAPSULE DELAYED RELEASE PARTICLES 1 cap by mouth daily for depression DULOXETINE HCL 42758874244 Active ALFREDO Holly Active CEFDINIR 300 MG ORAL CAPSULE 1 po BID x 10 days CEFDINIR 16253111633 No Longer Active Carlton Hu MD Active ZOCOR 40 MG ORAL TABLET 1 tab by mouth daily SI MVASTATIN 87812152958 No Longer Active Carlton Hu MD Active CYCLOBENZAPRINE HCL 10 MG ORAL TABLET 1 tablet by mouth BID prn had pain CYCLOBENZAPRINE HCL 23374605444 No Longer Active Jayden Hu MD Active LEVOFLOXACIN 500 MG ORAL TABLET 1 tab PO daily x 10 days LEVOFLOXACIN 29797323832 No Longer Active Carlton Hu MD Acti ve PREDNISONE 20 MG ORAL TABLET 3 tab PO qd x 2d, 2 tab P O qd x 2d, 1 tab PO qd x 2d, 1/2 tab PO qd x 2d PREDNISONE 18583640359 No Lo nger Active Carlton Hu MD Active FLUTICASONE PROPIONATE 50 MCG/ACT NASAL SUSPENSION 1 t o 2 sprays each nostril daily FLUTICASONE PROPIONATE 11907610526 No Longer Ac tive Blaine HERNANDEZ Active CHERATUSSIN AC 100-10 MG/5ML ORAL SYRUP 1 tsp by mouth every 4 hours as needed for cough GUAIFENESIN-CODEINE 09074189807 No Longe r Active Blaine HERNANDEZ Active PROMETHAZINE-CODEINE 6.25-10 MG/5ML ORAL SYRUP 1 tsp b y mouth every 6 hours if needed for cough PROMETHAZINE-CODEINE 38989593254 No Longer Active Blaine HERNANDEZ Active CHERATUSSIN AC 100-10 MG/5ML ORAL SYRUP 1 tsp by mouth every 4 hours as needed for cough GUAIFENESIN-CODEINE 15346692568 No Longe r Active Blaine HERNANDEZ Active ZITHROMAX Z-REYNA 250 MG ORAL TABLET 2 today, then 1 daily for 4 d ays AZITHROMYCIN 13441092504 No Longer Active Columba Raida Act nael ZITHROMAX 250 MG ORAL TABLET 2 po today, then 1 po q days 2-5 20 14/03/21 AZITHROMYCIN 72741524460 No Longer Active Carlton Hu MD Active ZITHROMAX Z-REYNA 250 MG ORAL TABLET 2 today, then 1 daily for 4 d ays AZITHROMYCIN 62406750379 No Longer Active Columba Raida Act nael AUGMENTIN 875-125 MG ORAL TABLET 1 po BID x 10 days 13/01/20 AMOXICILLIN-POT CLAVULANATE 31669834747 No Longer Active Diya De Guzman APRN Active ZITHROMAX 250 MG ORAL TABLET 2 po today, then 1 po q days 2-5 20 12/08/14 AZITHROMYCIN 21971897761 No Longer Active Carlton Hu MD Active TRAMADOL HCL 50 MG ORAL TABLET 1 po tid with ES Tylenol TRAMADOL HCL 15101679374 Active Adrienne Galvez HIDE SHAKER Active PREMARIN 0.625 MG ORAL TABLET TAKE 1 TAB BY MOUTH DAILY ESTROGENS CONJUGATED 28227764331 No Longer Active Ridge Bess DO A ctive CYMBALTA 30 MG ORAL CAPSULE DELAYED RELEASE PARTICLES 1 cap by mouth daily DULOXETINE HCL 30004438848 No Longer Active Ridge Ya ee DO Active AMOXICILLIN 500 MG ORAL CAPSULE 1 tab by mouth 3 times daily x 10 days AMOXICILLIN 36017725769 No Longer Active Carlton bustamante MD Active AMOXICILLIN 500 MG ORAL CAPSULE 1 tab by mouth 3 times daily x 10 days AMOXICILLIN 46286292674 No Longer Active Carlton bustamante MD Active PROMETHAZINE-CODEINE 6.25-10 MG/5ML ORAL SYRUP 1 tsp b y mouth every 8 hours prn cough PROMETHAZINE-CODEINE 17510924823 No Longer Acti ve Carlton Hu MD Active MEDROL 4 MG ORAL TABLET THERAPY PACK 6 pills x 1 day, then 5 pills x 1 day then 4 pills x 1 day, then 3 pills x 1 day, then 2 pills x 1 day, then 1 pill x 1 day, then stop METHYLPREDNISOLONE 62690009227 No Long er Active Perez Mora MD Active AZITHROMYCIN 250 MG ORAL TABLET 2 po qd x 1 day, then 1 po q d x 4 days AZITHROMYCIN 03238927945 No Longer Active Perez Ambriz MD Active SYMBICORT 160-4.5 MCG/ACT INHALATION AEROSOL 2 puffs bid wit h rinse after BUDESONIDE-FORMOTEROL FUMARATE 06249601489 N o Longer Active Perez Mora MD Active LYRICA 75 MG ORAL CAPSULE TAKE 1 CAPSULE BY MOUTH TWICE DAILY PREGABALIN 22150192791 No Longer Active Carlton Hu MD Acti ve TOPAMAX 25 MG ORAL TABLET 1 qHS x 1 week, then 1 BID x 1 week, then 1 qAM and 2 qHS x 1 week, then 2 BID (migraine prevention) T OPIRAMATE 46937714343 No Longer Active Jerica FUENTES Active TOPAMAX 50 MG ORAL TABLET take 1 tab po BID for migraines. 07/02 TOPIRAMATE 04710384040 No Longer Active Jerica FUENTES Active TRIAMCINOLONE ACETONIDE 0.1 % EXTERNAL CREAM apply three roger es daily prn rash TRIAMCINOLONE ACETONIDE 36648216299 No Longer Active Carlton Hu MD Active PAXIL 40 MG ORAL TABLET take 1 tab po qday for depression 0 PAROXETINE HCL 06446284757 Active ALFREDO Holly Active CHERATUSSIN AC 100-10 MG/5ML ORAL SYRUP 5ml po q6hr PRN Cough 20 13/04/14 GUAIFENESIN-CODEINE 35716699888 No Longer Active Carlton Hu MD Active MEDROL 4 MG ORAL TABLET THERAPY PACK 6 tabs on day 1, 5 tabs on day 2, 4 tabs on day 3, 3 tabs on day 4, 2 tabs on day 5, 1 tab on day 6 2013 METHYLPREDNISOLONE 59524148071 No Longer Active Perez Mora MD Active AZITHROMYCIN 250 MG ORAL TABLET 2 po qd x 1 day, then 1 po q d x 4 days AZITHROMYCIN 98118139637 No Longer Active Perez Ambriz MD Active PROPRANOLOL HCL 60 MG ORAL TABLET 1 PO Q D PROPRANOLOL HCL 69394376188 No Longer Active Perez Mora MD Activ e CHERATUSSIN AC 100-10 MG/5ML ORAL SYRUP take one tsp po Q 6h ours prn cough GUAIFENESIN-CODEINE 10397376268 No Longer Active Zia Mora MD Active AUGMENTIN 875-125 MG ORAL TABLET 1 tab by mouth twice daily with food AMOXICILLIN-POT CLAVULANATE 15538558075 No Longer Act nael Perez Mora MD Active CHERATUSSIN AC 100-10 MG/5ML ORAL SYRUP 1 tsp by mouth every 4 hours as needed for cough GUAIFENESIN-CODEINE 13000659885 No Longe r Active Hugo Restrepo MD Active ACETAMINOPHEN-CODEINE #3 300-30 MG ORAL TABLET 1 PO Q 4-6 HRS [place] N PAIN ACETAMINOPHEN-CODEINE 84324374920 No Longer Active Hugo Restrepo MD Active LEVAQUIN 500 MG ORAL TABLET take one po QD LEVO FLOXACIN 04477231439 No Longer Active Griffin HERNANDEZ Active PREDNISONE 20 MG ORAL TABLET Take 3 tabs daily for 3 d ays, 2 tabs daily for 3 days, 1 tab daily for 3 days, 1/2 tab daily for 3 days 11/07 PREDNISONE 61857006248 No Longer Active Carlton Hu MD Acti ve AVELOX 400 MG ORAL TABLET 1 tab by mouth daily MOXIFLOXACIN HCL 15787167578 No Longer Active Carlton Hu MD Active CHERATUSSIN AC 100-10 MG/5ML ORAL SYRUP 1 tsp by mouth every 4 hours as needed for cough GUAIFENESIN-CODEINE 21598459750 No Longe r Active Hugo Restrepo MD Active AVELOX 400 MG ORAL TABLET 1 tab by mouth daily MOXIFLOXACIN HCL 38790275857 No Longer Active Marcy De La Rosa MD PhD Active TERBINAFINE HCL 250 MG ORAL TABLET 1 qDay T ERBINAFINE HCL 94496727077 No Longer Active Marcy De La Rosa MD PhD Active CHERATUSSIN AC 100-10 MG/5ML ORAL SYRUP 1 tsp by mouth every 4 hours as needed for cough GUAIFENESIN-CODEINE 92555717649 No Longe r Active Marcy De La Rosa MD PhD Active AVELOX 400 MG ORAL TABLET 1 tab by mouth daily MOXIFLOXACIN HCL 51638649056 No Longer Active Marcy De La Rosa MD PhD Active HYDROCODONE-ACETAMINOPHEN 5-325 MG ORAL TABLET 1 po q 6hr PRN co ugh HYDROCODONE-ACETAMINOPHEN 45269898450 No Longer Active Marcy De La Rosa MD PhD Active PREDNISONE 20 MG ORAL TABLET 2 tabs daily for 3 days, 1 tab daily for 3 days, 1/2 tab daily for 2 days PREDNISONE 32434175543 No Longer Active Carlton Hu MD Active CEFDINIR 300 MG ORAL CAPSULE by mouth twice a day 2011 CEFDINIR 79251725362 No Longer Active Carlton Hu MD Acti ve HYDROCHLOROTHIAZIDE 25 MG ORAL TABLET 1 TAB PO DAILY HYDROCHLOROTHIAZIDE 36551296578 Active ALFREDO Holly Ac tive ACETAMINOPHEN-CODEINE #3 300-30 MG ORAL TABLET 1 tablet po q 4-6 hrs prn pain ACETAMINOPHEN-CODEINE 20553005724 No Longer Active Ridge Bess DO Active ZITHROMAX 250 MG ORAL TABLET 2 po today, then 1 po q days 2-5 20 03/07/07 AZITHROMYCIN 72109760011 No Longer Active Carlton Hu MD Active CHERATUSSIN AC 100-10 MG/5ML ORAL SYRUP take 1 tsp po q4-6 h ours prn cough GUAIFENESIN-CODEINE 78862626224 No Longer Active Jayden Hu MD Active ACETAMINOPHEN-CODEINE #3 300-30 MG ORAL TABLET 1 PO Q 4-6 HR PRN PAIN ACETAMINOPHEN-CODEINE 00391056367 No Longer Active Da raimundo Hu MD Active LORTAB 7.5-500 MG/15ML ORAL ELIXIR 7.5 ml po q 4 hour prn cough HYDROCODONE-ACETAMINOPHEN 17888139838 No Longer Active Carlton Hu MD Active PREDNISONE 20 MG ORAL TABLET 1 po bid 3 days, then 1 po q day 3 days PREDNISONE 49786927245 No Longer Active Carlton Hu MD Active CEFDINIR 300 MG ORAL CAPSULE by mouth twice a day 2011 CEFDINIR 98728523294 No Longer Active Carlton Hu MD Acti ve CEFDINIR 300 MG ORAL CAPSULE by mouth twice a day 2010 CEFDINIR 38666757537 No Longer Active Carlton Hu MD Acti ve CEFDINIR 300 MG ORAL CAPSULE by mouth twice a day 2010 CEFDINIR 94288403380 No Longer Active Carlton Hu MD Acti ve TESSALON PERLES 100 MG ORAL CAPSULE 1 tablet by mouth 3 times daily as needed for cough BENZONATATE 67593566173 No Longer Active Carlton Hu MD Active CEFDINIR 300 MG ORAL CAPSULE by mouth twice a day 2010 CEFDINIR 10155599216 No Longer Active Carlton Hu MD Acti ve ZITHROMAX Z-REYNA 250 MG ORAL TABLET 2 today, then 1 daily for 4 d ays AZITHROMYCIN 07494090346 No Longer Active Hugo Restrepo MD Active TESSALON PERLES 100 MG ORAL CAPSULE 1 tablet by mouth 3 times daily as needed for cough TESSALON PERLES 100 MG ORAL CAPSULE 92985 7 BENZONATATE Inactive PREDNISONE 20 MG ORAL TABLET 1 po bid 3 days, then 1 po q day 3 days PREDNISONE 20 MG ORAL TABLET 347316 PREDNISONE Greer ctive LORTAB 7.5-500 MG/15ML ORAL [...] cough CHERATUSSIN AC 100-10 MG/5ML ORAL SYRUP 959238 GUAIFENESIN-CODEINE Inactive ACETAMINOPHEN-CODEINE #3 300-30 MG ORAL TABLET 1 tablet po q 4-6 hrs prn pain ACETAMINOPHEN-CODEINE #3 300-30 MG ORAL TABLET ACETAMINOPHEN-CODEINE Inactive HYDROCODONE-ACETAMINOPHEN 5-325 MG ORAL TABLET 1 po q 6hr PRN co ugh HYDROCODONE-ACETAMINOPHEN 5-325 MG ORAL TABLET 891848 HYDROCODONE-ACETAMINOPHEN Inactive AVELOX 400 MG ORAL TABLET 1 tab by mouth daily AVELOX 400 MG ORAL TABLET 325738 MOXIFLOXACIN HCL Inactive CHERATUSSIN AC 100-10 MG/5ML ORAL SYRUP 1 tsp by mouth every 4 hours as needed for cough CHERATUSSIN AC 100-10 MG/5ML ORAL SYRUP 9 47486 GUAIFENESIN-CODEINE Inactive TERBINAFINE HCL 250 MG ORAL TABLET 1 qDay 07/08 TERBINAFINE HCL 250 MG ORAL TABLET 555053 TERBINAFINE HCL Inactive CHERATUSSIN AC 100-10 MG/5ML ORAL SYRUP 1 tsp by mouth every 4 hours as needed for cough CHERATUSSIN AC 100-10 MG/5ML ORAL SYRUP 9 06642 GUAIFENESIN-CODEINE Inactive ACETAMINOPHEN-CODEINE #3 300-30 MG ORAL TABLET 1 PO Q 4-6 HRS TN N PAIN ACETAMINOPHEN-CODEINE #3 300-30 MG ORAL TABLET ACETAMINOPHEN-CODEINE Inactive CHERATUSSIN AC 100-10 MG/5ML ORAL SYRUP 1 tsp by mouth every 4 hours as needed for cough CHERATUSSIN AC 100-10 MG/5ML ORAL SYRUP 9 62698 GUAIFENESIN-CODEINE Inactive AUGMENTIN 875-125 MG ORAL TABLET 1 tab by mouth twice daily with food AUGMENTIN 875-125 MG ORAL TABLET 562650 AMOXICIL MADELINE-POT CLAVULANATE Inactive CHERATUSSIN AC 100-10 MG/5ML ORAL SYRUP take one tsp po Q 6h ours prn cough CHERATUSSIN AC 100-10 MG/5ML ORAL SYRUP 924638 GUAIFENESIN-CODEINE Inactive PROPRANOLOL HCL 60 MG ORAL TABLET 1 PO Q D PROPRANOLOL HCL 60 MG ORAL TABLET 079559 PROPRANOLOL HCL Inactive TOPAMAX 50 MG ORAL TABLET take 1 tab po BID for migraines. 07/02 TOPAMAX 50 MG ORAL TABLET 637279 TOPIRAMATE Inacti ve TOPAMAX 25 MG ORAL TABLET 1 qHS x 1 week, then 1 BID x 1 week, then 1 qAM and 2 qHS x 1 week, then 2 BID (migraine prevention) TOPAMAX 25 MG ORAL TABLET 628883 TOPIRAMATE Inactive LYRICA 75 MG ORAL CAPSULE TAKE 1 CAPSULE BY MOUTH TWICE DAILY LYRICA 75 MG ORAL CAPSULE PREGABALIN Inactive SYMBICORT 160-4.5 MCG/ACT INHALATION AEROSOL 2 puffs bid wit h rinse after SYMBICORT 160-4.5 MCG/ACT INHALATION AEROSOL BUDESONIDE- FORMOTEROL FUMARATE Inactive PROMETHAZINE-CODEINE 6.25-10 MG/5ML ORAL SYRUP 1 tsp b y mouth every 8 hours prn cough PROMETHAZINE-CODEINE 6.25-10 MG/ 5ML ORAL SYRUP 264454 PROMETHAZINE-CODEINE Inactive CYMBALTA 30 MG ORAL CAPSULE DELAYED RELEASE PARTICLES 1 cap by mouth daily CYMBALTA 30 MG ORAL CAPSULE DELAYED RELE ASE PARTICLES 841614 DULOXETINE HCL Inactive PREMARIN 0.625 MG ORAL TABLET TAKE 1 TAB BY MOUTH DAILY PREMARIN 0.625 MG ORAL TABLET ESTROGENS CONJUGATED Inactive CHERATUSSIN AC 100-10 MG/5ML ORAL SYRUP 1 tsp by mouth every 4 hours as needed for cough CHERATUSSIN AC 100-10 MG/5ML ORAL SYRUP 9 33551 GUAIFENESIN-CODEINE Inactive PROMETHAZINE-CODEINE 6.25-10 MG/5ML ORAL SYRUP 1 tsp b y mouth every 6 hours if needed for cough PROMETHAZINE-CODEINE 6.25-10 MG/5ML ORAL SYRUP 591039 PROMETHAZINE-CODEINE Inactive CHERATUSSIN AC 100-10 MG/5ML ORAL SYRUP 1 tsp by mouth every 4 hours as needed for cough CHERATUSSIN AC 100-10 MG/5ML ORAL SYRUP 9 98065 GUAIFENESIN-CODEINE Inactive FLUTICASONE PROPIONATE 50 MCG/ACT NASAL SUSPENSION 1 t o 2 sprays each nostril daily FLUTICASONE PROPIONATE 50 MCG/AC T NASAL SUSPENSION 2554892 FLUTICASONE PROPIONATE Inactive PREDNISONE 20 MG ORAL TABLET 3 tab PO qd x 2d, 2 tab P O qd x 2d, 1 tab PO qd x 2d, 1/2 tab PO qd x 2d PREDNISONE 20 MG ORAL TAB LET 833544 PREDNISONE Inactive LEVOFLOXACIN 500 MG ORAL TABLET 1 tab PO daily x 10 days LEVOFLOXACIN 500 MG ORAL TABLET 880347 LEVOFLOXACIN Inactive CYCLOBENZAPRINE HCL 10 MG ORAL TABLET 1 tablet by mouth BID prn had pain CYCLOBENZAPRINE HCL 10 MG ORAL TABLET 276039 CYCLOBENZAPRINE HCL Inactive ZOCOR 40 MG ORAL TABLET 1 tab by mouth daily 4 ZOCOR 40 MG ORAL TABLET 414853 SIMVASTATIN Inactive TUSSIONEX PENNKINETIC ER 10-8 MG/5ML [...] FLUTICASONE PROPIO EFE 50 MCG/ACT NASAL SUSPENSION 6636684 FLUTICASONE PROPIONATE Inactive TUSSIONEX PENNKINETIC ER 10-8 [...] three days PREDNISONE 20 MG ORAL TABLET 840130 PREDNIS ONE Inactive PROAIR HFA 108 (90 BASE) MCG/ACT INHALATION AEROSOL SO LUTION 2 puffs four times a day as needed PROAIR HFA 108 (90 B ASE) MCG/ACT INHALATION AEROSOL SOLUTION ALBUTEROL SULFATE Inactive PREDNISONE 20 MG ORAL TABLET two tabs by mouth today, then one tab by mouth days two and three and four PREDNISONE 20 MG ORAL TAB LET 119557 PREDNISONE Inactive TUSSIONEX PENNKINETIC ER 10-8 MG/5ML [...] bid 04/20 TOPAMAX 100 MG ORAL TABLET 906967 TOPIRAMATE Inactive ZITHROMAX Z-REYNA 250 MG ORAL TABLET 2 today, then 1 daily for 4 d ays ZITHROMAX Z-REYNA 250 MG ORAL TABLET 153675 AZITHROMYCIN Inactive CEFDINIR 300 MG ORAL CAPSULE [...] 20 03/07/07 ZITHROMAX 250 MG ORAL TABLET 801806 AZITHROMYCIN Greer ctive CEFDINIR 300 MG ORAL CAPSULE by mouth twice a day 2011 CEFDINIR 300 MG ORAL CAPSULE 901758 CEFDINIR Inactive PREDNISONE 20 MG ORAL TABLET 2 tabs daily for 3 days, 1 tab daily for 3 days, 1/2 tab daily for 2 days PREDNISONE 20 MG ORAL T ABLET 267696 PREDNISONE Inactive AVELOX 400 MG ORAL TABLET 1 tab by mouth daily AVELOX 400 MG ORAL TABLET 467013 MOXIFLOXACIN HCL Inactive AVELOX 400 MG ORAL TABLET 1 tab by mouth daily AVELOX 400 MG ORAL TABLET 201805 MOXIFLOXACIN HCL Inactive PREDNISONE 20 MG ORAL TABLET Take 3 tabs daily for 3 d ays, 2 tabs daily for 3 days, 1 tab daily for 3 days, 1/2 tab daily for 3 days 11/07 PREDNISONE 20 MG ORAL TABLET 166962 PREDNISONE Inactive LEVAQUIN 500 MG ORAL TABLET take one po QD LEVAQUIN 500 MG ORAL TABLET 043291 LEVOFLOXACIN Inactive AZITHROMYCIN 250 MG ORAL TABLET 2 po qd x 1 day, then 1 po q d x 4 days AZITHROMYCIN 250 MG ORAL TABLET 033661 AZITHROMY GIOVANNI Inactive MEDROL 4 MG ORAL TABLET THERAPY PACK 6 tabs on day 1, 5 tabs on day 2, 4 tabs on day 3, 3 tabs on day 4, 2 tabs on day 5, 1 tab on day 6 2013 MEDROL 4 MG ORAL TABLET THERAPY PACK 078124 METHYLPREDNISOLONE Greer ctive CHERATUSSIN AC 100-10 MG/5ML ORAL SYRUP 5ml po q6hr PRN Cough 20 13/04/14 CHERATUSSIN AC 100-10 MG/5ML ORAL SYRUP 316531 GUAIFENE SIN-CODEINE Inactive TRIAMCINOLONE ACETONIDE 0.1 % EXTERNAL CREAM apply three roger es daily prn rash TRIAMCINOLONE ACETONIDE 0.1 % EXTERNAL CREAM 101 4314 TRIAMCINOLONE ACETONIDE Inactive AZITHROMYCIN 250 MG ORAL TABLET 2 po qd x 1 day, then 1 po q d x 4 days AZITHROMYCIN 250 MG ORAL TABLET 587043 AZITHROMY GIOVANNI Inactive MEDROL 4 MG ORAL TABLET THERAPY PACK 6 pills x 1 day, then 5 pills x 1 day then 4 pills x 1 day, then 3 pills x 1 day, then 2 pills x 1 day, then 1 pill x 1 day, then stop MEDROL 4 MG ORAL TABLET THERAPY PACK 783828 METHYLPREDNISOLONE Inactive AMOXICILLIN 500 MG ORAL CAPSULE 1 tab by mouth 3 times daily x 10 days AMOXICILLIN 500 MG ORAL CAPSULE 871506 AMOXICILL IN Inactive AMOXICILLIN 500 MG ORAL CAPSULE 1 tab by mouth 3 times daily x 10 days AMOXICILLIN 500 MG ORAL CAPSULE 818835 AMOXICILL IN Inactive ZITHROMAX 250 MG ORAL TABLET 2 po today, then 1 po q days 2-5 20 12/08/14 ZITHROMAX 250 MG ORAL TABLET 255833 AZITHROMYCIN Greer ctive AUGMENTIN 875-125 MG ORAL TABLET 1 po BID x 10 days 20 13/01/20 AUGMENTIN 875-125 MG ORAL TABLET 042483 AMOXICILLIN-POT CLAVULANATE Inactive ZITHROMAX Z-REYNA 250 MG ORAL TABLET 2 today, then 1 daily for 4 d ays ZITHROMAX Z-REYNA 250 MG ORAL TABLET 037145 AZITHROMYCIN Inactive ZITHROMAX 250 MG ORAL TABLET 2 po today, then 1 po q days 2-5 20 14/03/21 ZITHROMAX 250 MG ORAL TABLET 829408 AZITHROMYCIN Greer ctive ZITHROMAX Z-REYNA 250 MG ORAL TABLET 2 today, then 1 daily for 4 d ays ZITHROMAX Z-REYNA 250 MG ORAL TABLET 179769 AZITHROMYCIN Inactive CEFDINIR 300 MG ORAL CAPSULE 1 po BID x 10 days 06/21 CEFDINIR 300 MG ORAL CAPSULE 347343 CEFDINIR Inactive ZITHROMAX 250 MG ORAL TABLET 2 po today, then 1 po q days 2-5 20 13/08/10 ZITHROMAX 250 MG ORAL TABLET 313603 AZITHROMYCIN Greer ctive LEVAQUIN 500 MG ORAL TABLET 1 tablet by mouth daily 13/09/24 LEVAQUIN 500 MG ORAL TABLET 787203 LEVOFLOXACIN Inactive SINGULAIR 10 MG ORAL TABLET 1 po qday for allergies 20 14/01/12 SINGULAIR 10 MG ORAL TABLET 239653 MONTELUKAST SODIUM Inactive AMOXICILLIN 500 MG ORAL CAPSULE 2 po BID x 10 days 201 09/29/08 AMOXICILLIN 500 MG ORAL CAPSULE 656530 AMOXICILLIN Inactive PREDNISONE 20 MG ORAL TABLET 2 tabs daily for 3 days, 1 tab daily for 3 days, 1/2 tab daily for 2 days PREDNISONE 20 MG ORAL T ABLET [id number] PREDNISONE Inactive ZITHROMAX Z-REYNA 250 MG ORAL TABLET 2 today, then 1 daily for 4 d ays ZITHROMAX Z-REYNA 250 MG ORAL TABLET 185915 AZITHROMYCIN Inactive PREDNISONE 20 MG ORAL TABLET 2 tabs daily for 3 days, 1 tab daily for 3 days, 1/2 tab daily for 2 days PREDNISONE 20 MG ORAL T ABLET 155902 PREDNISONE Inactive ZITHROMAX 250 MG ORAL TABLET 2 po today, then 1 po q days 2-5 20 14/09/04 ZITHROMAX 250 MG ORAL TABLET 683247 AZITHROMYCIN [facility] AMOXICILLIN 500 MG ORAL CAPSULE 1 cap by mouth three times a day AMOXICILLIN 500 MG ORAL CAPSULE 031835 AMOXICILLIN Inactive TERBINAFINE HCL 250 MG ORAL TABLET 1 qDay for nail fungus 7 TERBINAFINE HCL 250 MG ORAL TABLET 698413 TERBINAFINE HCL Inact nael AUGMENTIN 875-125 MG ORAL TABLET 1 po BID x 10 days 16/03/22 AUGMENTIN 875-125 MG ORAL TABLET 085008 AMOXICILLIN-POT CLAVULANATE Inactive PREDNISONE 20 MG ORAL TABLET 2 po qd x 5 days PREDNISONE 20 MG ORAL TABLET 268990 PREDNISONE Inactive AZITHROMYCIN 250 MG ORAL TABLET 2 po qd x 1 day, then 1 po q d x 4 days AZITHROMYCIN 250 MG ORAL TABLET 147694 AZITHROMY GIOVANNI Inactive PREDNISONE 50 MG ORAL TABLET Take 50 mg dialy for 6 day s 7 PREDNISONE 50 MG ORAL TABLET 237449 PREDNISONE Inactive AUGMENTIN 875-125 MG ORAL TABLET 1 po BID x 10 days 20 18/04/16 AUGMENTIN 875-125 MG ORAL TABLET 746913 AMOXICILLIN-POT CLAVULANATE Inactive PREDNISONE 20 MG ORAL TABLET Take 2 tabs day 1 and 2 and 1 t ab days 3 and 4 PREDNISONE 20 MG ORAL TABLET 058844 PREDNISONE Inactive Vital Signs Date Name Value [...] - Chem istry sodium, serum 139 mmol/L 513-509 6697/03/19 potassium, serum 3.6 mmol/L 3.5-5.2 chloride, serum 100 mmol/L 98-107 carbon dioxide, venous blood 30.3 mmol/L 21.0-32 .0 blood glucose 101 mg/dL 65-110 calcium, serum 9.4 mg/dL 8.5-10.1 urea nitrogen, blood 10 mg/dL 7-18 creatinine, serum 0.96 mg/dL 0.60-1.30 sodium, serum 139 mmol/L 444-217 5638/10/12 potassium, serum 3.8 mmol/L 3.5-5.2 chloride, serum 102 mmol/L 98-107 carbon dioxide, venous blood 29.4 mmol/L 21.0-32 .0 blood glucose 103 mg/dL 65-95 calcium, serum 8.8 mg/dL 8.5-10.1 urea nitrogen, blood 10 mg/dL 7-18 creatinine, serum 0.97 mg/dL 0.60-1.30 Estimated Glomerular Filtration Rate (calc) 62 (?) mL/min/1.73m2 = OR > 60 mL/min Encounters Code Encounter Date Provider Facility CPT-34676 Level 3 Est. Patient 09:46:49 DIRECTOR OF STUDENT AFFAIRS David lion [facility] CPT-07497 [id number] Vst-Est Level III 11:12:16 CDT Yanet Bess DO [facility] CPT-98207 Level 3 Est. Patient 11:34:49 DIRECTOR OF STUDENT AFFAIRS Perez Mora MD [facility] CPT-32780 Level 4 Est. Patient 09:51:32 DIRECTOR OF STUDENT AFFAIRS Carlton rich MD [facility] CPT-75611 Level 3 Est. Patient 10:26:00 DIRECTOR OF STUDENT AFFAIRS Elise stephenson [facility] CPT-00325 Level 3 Est. Patient 13:35:41 DIRECTOR OF STUDENT AFFAIRS Carlton rich MD [facility] CPT-38255 Level 3 Est. Patient 10:03:52 DIRECTOR OF STUDENT AFFAIRS Carlton rich MD [facility] CPT-52712 Level 3 Est. Patient 12:17:50 CDT Hugo Restrepo MD [facility] CPT-54026 Level 3 Est. Patient 13:42:38 CDT Elise stephenson [facility] CPT-51719 Level 3 Est. Patient 13:23:51 CDT Diya cobian [facility]-30824 Level 3 Est. Patient 14:22:19 DIRECTOR OF STUDENT AFFAIRS Diya cobian [facility] CPT-15293 Level 3 Est. Patient 10:11:46 CDT Carlton rich MD [facility] CPT-53028 Level 3 Est. Patient 17:29:43 CDT Elise Are ll [facility] CPT-48714 Level 3 Est. Patient 11:58:06 CDT Elise Are ll [facility]UL[facility] CPT-57141 Level 4 Est. Patient 14:36:51 CDT Carlton rich MD [facility] CPT-88853 Level 3 Est. Patient 18:16:00 DIRECTOR OF STUDENT AFFAIRS Blaine Freeman [facility] CPT-59153 Level 3 Est. Patient 09:45:49 DIRECTOR OF STUDENT AFFAIRS Carlton rich MD [facility] CPT-07108 Level 3 Est. Patient 13:19:20 CDT Carlton rich MD [facility] CPT-50408 Level 3 Est. Patient 13:06:43 CDT Ridge tam DO [facility] CPT-31166 Level 3 Est. Patient 10:03:07 CDT Perez Mora MD [facility] CPT-00301 Level 3 Est. Patient 19:50:35 DIRECTOR OF STUDENT AFFAIRS Carlton rich MD [facility] CPT-36657 Level 4 Est. Patient 18:05:01 DIRECTOR OF STUDENT AFFAIRS Carlton rich MD [facility] CPT-92203 Level 3 Est. Patient 10:45:55 DIRECTOR OF STUDENT AFFAIRS Hugo Restrepo MD [facility] CPT-56486 Level 3 Est. Patient 14:12:49 CDT Griffin lincoln [facility] CPT-63318 Level 3 Est. Patient 17:37:24 CDT Carlton rich MD [facility]-75861 Level 3 Est. Patient 16:51:54 CDT Carlton rich MD [facility] CPT-84994 Level 3 Est. Patient 12:18:11 CDT Hugo Restrepo MD [facility] CPT-65101 Level 3 Est. Patient 11:30:25 CDT Marcy crisostomo MD PhD [facility] CPT-23687 Level 3 Est. Patient 12:00:47 DIRECTOR OF STUDENT AFFAIRS Carlton rich MD [facility] CPT-83236 Level 3 Est. Patient 16:31:06 DIRECTOR OF STUDENT AFFAIRS Carlton rich MD [facility] CPT-75427 Level 3 Est. Patient 16:23:24 DIRECTOR OF STUDENT AFFAIRS Ridge tam [facility] CPT-35467 Level 3 Est. Patient 12:34:12 CDT Carlton rich MD [facility] CPT-38915 Level 2 Est. Patient 15:43:33 CDT Robi armstrong MD [facility] CPT-18194 Level 4 Est. Patient 14:04:44 CDT Carlton rich MD [facility] CPT-82673 Level 3 Est. Patient 05:47:59 CDT Ridge tam [facility] CPT-06724 Level 3 Est. Patient 13:12:53 DIRECTOR OF STUDENT AFFAIRS Carlton rich MD [facility] CPT-73247 Level 3 Est. Patient 14:26:53 CDT Hugo Restrepo MD [facility] Procedures Code Procedure Name Date Entry Date Standard Desc ription CPT-000 Give Appropriate Flu Vaccine 14:14:31 CDT 2 CPT-J1040 Depo Medrol 80 mg (Methyl Prednisolone A cetate) 10:42:44 CDT CPT-J1100 Decadron 8mg (Dexamethasone) 10:42:44 CDT 2 CPT-J0696 Rocephin 1gm Inj Solr 14:32:13 CDT CPT-J1020 Depo Medrol 60 mg (Methyl Prednisolone A cetate) 14:32:13 CDT CPT-J1100 Decadron 6mg (Dexamethasone) 14:32:13 CDT 2 CPT-19988 Hip bilat min 2V w AP pelvis 13:16:20 CDT 2 CPT-45175 Pelvis only 13:07:33 CDT CPT-07465 Spec Collection and Handling Fee 11:25:12 C DT CPT-19292 Fluzone Quadrivalent Intramuscular Suspe nsion 0.5 ML 14:31:55 CDT CPT-21478 Abx/Therapy Injection 13:28:47 DIRECTOR OF STUDENT AFFAIRS CPT-J2930 Solu Medrol 125 mg (Methyl Prednisolone Sodium Succinate) 12:00:47 DIRECTOR OF STUDENT AFFAIRS CPT-58328 Venipuncture Draw Fee 11:33:31 CDT CPT-71494 EKG Trac and Interp 11:21:09 CDT CPT-38204 Chest 2V Frontal and Lat 11:21:09 CDT 12/15 CPT-56687 Venipuncture Draw Fee 08:02:34 CDT CPT-48322 Chest 2V Frontal and Lat 05:47:59 CDT 06/05
--- OUTSIDE RECORDS SUMMARY | 2019-10-08 09:15 | XMS REPORT | Clinical Summary ---
Author Author Caitlin, Juliana Martinez Organization [facility] Address Unknown Phone Unavailable Allergies, Adverse [...] URI 465.9 Inactive Ridge Bess DO Ac [place] upper respiratory infections of unspecified site Body [...] Rosa MD P HEALTH SCREENING ICD-V70.0 Inactive Mracy ya MD PhD CHEST WALL PAIN, ACUTE [...] po q12hr PRN Cough HYDROCOD POLST-CHLORPHEN POLST 30209901446 Active David Marianne BUSINESS ACCOUNT LEADER Active PREDNISONE 20 MG ORAL TABLET Take 2 tabs day 1 and 2 and 1 t ab days 3 and 4 PREDNISONE 20791964553 No Longer Active David Marianne BUSINESS ACCOUNT LEADER Active DOXYCYCLINE HYCLATE 100 MG ORAL CAPSULE 1 cap by mouth twice latasha ly DOXYCYCLINE HYCLATE 45430504304 No Longer Active David Marianne BUSINESS ACCOUNT LEADER Active TOPAMAX 100 MG ORAL TABLET Take 1 tablet po bid TOPIRAMATE 64751506614 No Longer Active David Marianne BUSINESS ACCOUNT LEADER Active TUSSIONEX PENNKINETIC ER 10-8 MG/5ML ORAL SUSPENSION E XTENDED RELEASE 5ml po q12hr PRN Cough HYDROCOD POLST-CHLORPHEN POLST 5 4536900901 No Longer Active David Marianne BUSINESS ACCOUNT LEADER Active AUGMENTIN 875-125 MG ORAL TABLET 1 po BID x 10 days 20 18/04/16 AMOXICILLIN-POT CLAVULANATE 24761766895 No Longer Active David Marianne BUSINESS ACCOUNT LEADER Active PREDNISONE 50 MG ORAL TABLET Take 50 mg dialy for 6 day s 7 PREDNISONE 60286135019 No Longer Active David Lopes BUSINESS ACCOUNT LEADER Active TUSSIONEX PENNKINETIC ER 10-8 MG/5ML ORAL SUSPENSION E XTENDED RELEASE 5ml po q12hr PRN Cough HYDROCOD POLST-CHLORPHEN POLST 5 7831966192 No Longer Active Cherelle Torres RN Active PREDNISONE 20 MG ORAL TABLET two tabs by mouth today, then one tab by mouth days two and three and four PREDNISONE 42506507603 No Lo nger Active Cherelle Torres RN Active AZITHROMYCIN 250 MG ORAL TABLET 2 po qd x 1 day, then 1 po q d x 4 days AZITHROMYCIN 38160619032 No Longer Active Ridge Bess DO Active PREDNISONE 20 MG ORAL TABLET 2 po qd x 5 days P REDNISONE 25867362899 No Longer Active Perez Mora MD Active PROAIR HFA 108 (90 BASE) MCG/ACT INHALATION AEROSOL SO LUTION 2 puffs four times a day as needed ALBUTEROL SULFATE 07392629743 No Long er Active Becky AGUILARA Active ASPIRIN 81 MG ORAL TABLET 1 po qd ASPIRIN 92619345323 Active Carlton Hu MD Active PREDNISONE 20 MG ORAL TABLET 1 tab twice daily for 3 d ay, then one daily for three days PREDNISONE 11606985062 No Longer Active Carlton Hu MD Active AUGMENTIN 875-125 MG ORAL TABLET 1 po BID x 10 days 20 16/03/22 AMOXICILLIN-POT CLAVULANATE 77779993649 No Longer Active Elise Garcia APRN Active TERBINAFINE HCL 250 MG ORAL TABLET 1 qDay for nail fungus 7 TERBINAFINE HCL 65202629210 No Longer Active Carlton Hu MD A ctive AMOXICILLIN 500 MG ORAL CAPSULE 1 cap by mouth three times a day AMOXICILLIN 86697781653 No Longer Active Carlton Hu MD Active ELMIRON 100 MG ORAL CAPSULE 2 tablets in the am and 1 tablet at hs PENTOSAN POLYSULFATE SODIUM 90628067996 No Longer Active Robert jade Hu MD Active MUCINEX D 60-600 MG ORAL TABLET EXTENDED RELEASE 12 HOUR 1 t ab po q am PSEUDOEPHEDRINE-GUAIFENESIN 35604422318 No Longer Act nael Carlton Hu MD Active MUCINEX DM MAXIMUM STRENGTH 60-1200 MG ORAL TABLET EXT ENDED RELEASE 12 HOUR 1 tab po q am DEXTROMETHORPHAN-GUAIFENESIN 62327062760 No Longer Active Carlton Hu MD Active TUSSIONEX PENNKINETIC ER 10-8 MG/5ML ORAL SUSPENSION E XTENDED RELEASE 5ml po q12hr PRN Cough HYDROCOD POLST-CHLORPHEN POLST 5 9112758429 No Longer Active Carlton Hu MD Active POTASSIUM CHLORIDE ER 20 MEQ ORAL TABLET EXTENDED RELE ASE Take 1 by mouth 4 times daily for 7 days POTASSIUM CHLORIDE 45526053014 No Longer Active Carlton Hu MD Active ZITHROMAX 250 MG ORAL TABLET 2 po today, then 1 po q days 2-5 14/09/04 AZITHROMYCIN 15813633131 No Longer Active Elise Garcia APRN Active TUSSIONEX PENNKINETIC ER 10-8 MG/5ML ORAL SUSPENSION E XTENDED RELEASE 5 ml twice a day as needed for cough HYDROCOD POLST-CHLORPH EN POLST 01889499395 No Longer Active Elise Garcia APRN Active MONTELUKAST SODIUM 10 MG ORAL TABLET 1 po daily for Allergy MONTELUKAST SODIUM 42490297811 Active ALFREDO Holly Act nael TUSSIONEX PENNKINETIC ER 10-8 MG/5ML ORAL SUSPENSION E XTENDED RELEASE 5ml po q12hr PRN Cough HYDROCOD POLST-CHLORPHEN POLST 5 2135771733 No Longer Active Hugo Restrepo MD Active GABAPENTIN 100 MG ORAL CAPSULE 1 po BID for fibromyalgia GABAPENTIN 24000379561 Active Carlton Hu MD Active LYRICA 100 MG ORAL CAPSULE Take 1 tab po BID for fibromyalgia 20 11/08/21 PREGABALIN 62352238174 No Longer Active Elise Garcia APRN A ctive PREDNISONE 20 MG ORAL TABLET 2 tabs daily for 3 days, 1 tab daily for 3 days, 1/2 tab daily for 2 days PREDNISONE 65019894445 No Longer Active Jillina Cesarl BUSINESS ACCOUNT LEADER Active TUSSIONEX PENNKINETIC ER 10-8 MG/5ML ORAL SUSPENSION E XTENDED RELEASE 5 mL PO q 12 hrs PRN cough HYDROCOD POLST-CHLORPHEN POLST 867799 85366 No Longer Active Jillina Frazell BUSINESS ACCOUNT LEADER Active FLUTICASONE PROPIONATE 50 MCG/ACT NASAL SUSPENSION 2 s prays each nostril daily until bottle is empty FLUTICASONE PROPIONATE 456175201 99 No Longer Active Jillina Frazell BUSINESS ACCOUNT LEADER Active ASMANEX 60 METERED DOSES 220 MCG/INH INHALATION AEROSO L POWDER BREATH ACTIVATED 1 puff bid with rinse after MOMETASONE FUROATE 9962742 4102 No Longer Active Jillina Cesarl BUSINESS ACCOUNT LEADER Active ZITHROMAX Z-REYNA 250 MG ORAL TABLET 2 today, then 1 daily for 4 d ays AZITHROMYCIN 61160937176 No Longer Active Elise Garcia BUSINESS ACCOUNT LEADER Active TUSSIONEX PENNKINETIC ER 10-8 MG/5ML ORAL SUSPENSION E XTENDED RELEASE 5ml po q12hr PRN Cough HYDROCOD POLST-CHLORPHEN POLST 5 8403248132 No Longer Active Elise Garcia BUSINESS ACCOUNT LEADER Active PREDNISONE 20 MG ORAL TABLET 2 tabs daily for 3 days, 1 tab daily for 3 days, 1/2 tab daily for 2 days PREDNISONE 70050610030 No Longer Active Jillina Frazell BUSINESS ACCOUNT LEADER Active AMOXICILLIN 500 MG ORAL CAPSULE 2 po BID x 10 days 201 09/29/08 AMOXICILLIN 91699376173 No Longer Active Jillina Frazell BUSINESS ACCOUNT LEADER Act nael SINGULAIR 10 MG ORAL TABLET 1 po qday for allergies 20 14/01/12 MONTELUKAST SODIUM 94552160311 No Longer Active Carlton Hu MD Active LEVAQUIN 500 MG ORAL TABLET 1 tablet by mouth daily 20 13/09/24 LEVOFLOXACIN 41763805446 No Longer Active Carlton Hu MD Acti ve FLUTICASONE PROPIONATE 50 MCG/ACT NASAL SUSPENSION 2 s prays each nostril daily for 2 weeks, then 1 spray each nostril daily. FLUTICASONE PROPIONATE 54058461962 Active ALFREDO Holly Active ZITHROMAX 250 MG ORAL TABLET 2 po today, then 1 po q days 2-5 20 13/08/10 AZITHROMYCIN 44311772974 No Longer Active Elise Garcia APRN Active XANAX 0.5 MG ORAL TABLET one tablet by mouth daily prn anxiety 2015 ALPRAZOLAM 82294452648 Active ALFREDO Holly Active CYMBALTA 30 MG ORAL CAPSULE DELAYED RELEASE PARTICLES 1 cap by mouth daily for depression DULOXETINE HCL 56939646880 Active ALFREDO Holly Active CEFDINIR 300 MG ORAL CAPSULE 1 po BID x 10 days CEFDINIR 09467493749 No Longer Active Carlton Hu MD Active ZOCOR 40 MG ORAL TABLET 1 tab by mouth daily SI MVASTATIN 50931061874 No Longer Active Carlton Hu MD Active CYCLOBENZAPRINE HCL 10 MG ORAL TABLET 1 tablet by mouth BID prn had pain CYCLOBENZAPRINE HCL 44018654552 No Longer Active Jayden Hu MD Active LEVOFLOXACIN 500 MG ORAL TABLET 1 tab PO daily x 10 days LEVOFLOXACIN 06953690844 No Longer Active Carlton Hu MD Acti ve PREDNISONE 20 MG ORAL TABLET 3 tab PO qd x 2d, 2 tab P O qd x 2d, 1 tab PO qd x 2d, 1/2 tab PO qd x 2d PREDNISONE 02850908825 No Lo nger Active Carlton Hu MD Active FLUTICASONE PROPIONATE 50 MCG/ACT NASAL SUSPENSION 1 t o 2 sprays each nostril daily FLUTICASONE PROPIONATE 42075294945 No Longer Ac tive Blaine HERNANDEZ Active CHERATUSSIN AC 100-10 MG/5ML ORAL SYRUP 1 tsp by mouth every 4 hours as needed for cough GUAIFENESIN-CODEINE 65465401014 No Longe r Active Blaine HERNANDEZ Active PROMETHAZINE-CODEINE 6.25-10 MG/5ML ORAL SYRUP 1 tsp b y mouth every 6 hours if needed for cough PROMETHAZINE-CODEINE 12606696224 No Longer Active Blaine HERNANDEZ Active CHERATUSSIN AC 100-10 MG/5ML ORAL SYRUP 1 tsp by mouth every 4 hours as needed for cough GUAIFENESIN-CODEINE 44948864627 No Longe r Active Blaine HERNANDEZ Active ZITHROMAX Z-REYNA 250 MG ORAL TABLET 2 today, then 1 daily for 4 d ays AZITHROMYCIN 58147233345 No Longer Active Columba Raida Act nael ZITHROMAX 250 MG ORAL TABLET 2 po today, then 1 po q days 2-5 20 14/03/21 AZITHROMYCIN 66065065847 No Longer Active Carlton Hu MD Active ZITHROMAX Z-REYNA 250 MG ORAL TABLET 2 today, then 1 daily for 4 d ays AZITHROMYCIN 54086938496 No Longer Active Columba Raida Act nael AUGMENTIN 875-125 MG ORAL TABLET 1 po BID x 10 days 13/01/20 AMOXICILLIN-POT CLAVULANATE 36411018618 No Longer Active Diya De Guzman APRN Active ZITHROMAX 250 MG ORAL TABLET 2 po today, then 1 po q days 2-5 20 12/08/14 AZITHROMYCIN 44054938911 No Longer Active Carlton Hu MD Active TRAMADOL HCL 50 MG ORAL TABLET 1 po tid with ES Tylenol TRAMADOL HCL 66860948389 Active Adrienne Galvez FITTER'S ASSISTANT Active PREMARIN 0.625 MG ORAL TABLET TAKE 1 TAB BY MOUTH DAILY ESTROGENS CONJUGATED 31981787615 No Longer Active Ridge Bess DO A ctive CYMBALTA 30 MG ORAL CAPSULE DELAYED RELEASE PARTICLES 1 cap by mouth daily DULOXETINE HCL 18756725346 No Longer Active Ridge Ya ee DO Active AMOXICILLIN 500 MG ORAL CAPSULE 1 tab by mouth 3 times daily x 10 days AMOXICILLIN 65644345788 No Longer Active Carlton bustamante MD Active AMOXICILLIN 500 MG ORAL CAPSULE 1 tab by mouth 3 times daily x 10 days AMOXICILLIN 21079573160 No Longer Active Carlton bustamante MD Active PROMETHAZINE-CODEINE 6.25-10 MG/5ML ORAL SYRUP 1 tsp b y mouth every 8 hours prn cough PROMETHAZINE-CODEINE 54687473720 No Longer Acti ve Carlton Hu MD Active MEDROL 4 MG ORAL TABLET THERAPY PACK 6 pills x 1 day, then 5 pills x 1 day then 4 pills x 1 day, then 3 pills x 1 day, then 2 pills x 1 day, then 1 pill x 1 day, then stop METHYLPREDNISOLONE 03724013944 No Long er Active Perez Mora MD Active AZITHROMYCIN 250 MG ORAL TABLET 2 po qd x 1 day, then 1 po q d x 4 days AZITHROMYCIN 56771785436 No Longer Active Perez Ambriz MD Active SYMBICORT 160-4.5 MCG/ACT INHALATION AEROSOL 2 puffs bid wit h rinse after BUDESONIDE-FORMOTEROL FUMARATE 00124332429 N o Longer Active Perez Mora MD Active LYRICA 75 MG ORAL CAPSULE TAKE 1 CAPSULE BY MOUTH TWICE DAILY PREGABALIN 18172916694 No Longer Active Carlton Hu MD Acti ve TOPAMAX 25 MG ORAL TABLET 1 qHS x 1 week, then 1 BID x 1 week, then 1 qAM and 2 qHS x 1 week, then 2 BID (migraine prevention) T OPIRAMATE 05469574243 No Longer Active Jerica FUENTES Active TOPAMAX 50 MG ORAL TABLET take 1 tab po BID for migraines. 07/02 TOPIRAMATE 82844516897 No Longer Active Jerica FUENTES Active TRIAMCINOLONE ACETONIDE 0.1 % EXTERNAL CREAM apply three roger es daily prn rash TRIAMCINOLONE ACETONIDE 43891893705 No Longer Active Carlton Hu MD Active PAXIL 40 MG ORAL TABLET take 1 tab po qday for depression 0 PAROXETINE HCL 50778279740 Active ALFREDO Holly Active CHERATUSSIN AC 100-10 MG/5ML ORAL SYRUP 5ml po q6hr PRN Cough 20 13/04/14 GUAIFENESIN-CODEINE 47369096213 No Longer Active Carlton Hu MD Active MEDROL 4 MG ORAL TABLET THERAPY PACK 6 tabs on day 1, 5 tabs on day 2, 4 tabs on day 3, 3 tabs on day 4, 2 tabs on day 5, 1 tab on day 6 2013 METHYLPREDNISOLONE 63972238933 No Longer Active Perez Mora MD Active AZITHROMYCIN 250 MG ORAL TABLET 2 po qd x 1 day, then 1 po q d x 4 days AZITHROMYCIN 19117474290 No Longer Active Perez Ambriz MD Active PROPRANOLOL HCL 60 MG ORAL TABLET 1 PO Q D PROPRANOLOL HCL 38592283197 No Longer Active Perez Mora MD Activ e CHERATUSSIN AC 100-10 MG/5ML ORAL SYRUP take one tsp po Q 6h ours prn cough GUAIFENESIN-CODEINE 76717872079 No Longer Active Zia Mora MD Active AUGMENTIN 875-125 MG ORAL TABLET 1 tab by mouth twice daily with food AMOXICILLIN-POT CLAVULANATE 27389599079 No Longer Act nael Perez Mora MD Active CHERATUSSIN AC 100-10 MG/5ML ORAL SYRUP 1 tsp by mouth every 4 hours as needed for cough GUAIFENESIN-CODEINE 60113426511 No Longe r Active Hugo Restrepo MD Active ACETAMINOPHEN-CODEINE #3 300-30 MG ORAL TABLET 1 PO Q 4-6 HRS [place] N PAIN ACETAMINOPHEN-CODEINE 18765835255 No Longer Active Hugo Restrepo MD Active LEVAQUIN 500 MG ORAL TABLET take one po QD LEVO FLOXACIN 12644390250 No Longer Active Griffin HERNANDEZ Active PREDNISONE 20 MG ORAL TABLET Take 3 tabs daily for 3 d ays, 2 tabs daily for 3 days, 1 tab daily for 3 days, 1/2 tab daily for 3 days 11/07 PREDNISONE 35281027848 No Longer Active Carlton Hu MD Acti ve AVELOX 400 MG ORAL TABLET 1 tab by mouth daily MOXIFLOXACIN HCL 61837489486 No Longer Active Carlton Hu MD Active CHERATUSSIN AC 100-10 MG/5ML ORAL SYRUP 1 tsp by mouth every 4 hours as needed for cough GUAIFENESIN-CODEINE 20893029775 No Longe r Active Hugo Restrepo MD Active AVELOX 400 MG ORAL TABLET 1 tab by mouth daily MOXIFLOXACIN HCL 02716905823 No Longer Active Marcy De La Rosa MD PhD Active TERBINAFINE HCL 250 MG ORAL TABLET 1 qDay T ERBINAFINE HCL 31627670943 No Longer Active Marcy De La Rosa MD PhD Active CHERATUSSIN AC 100-10 MG/5ML ORAL SYRUP 1 tsp by mouth every 4 hours as needed for cough GUAIFENESIN-CODEINE 91015500582 No Longe r Active Marcy De La Rosa MD PhD Active AVELOX 400 MG ORAL TABLET 1 tab by mouth daily MOXIFLOXACIN HCL 17712368547 No Longer Active Marcy De La Rosa MD PhD Active HYDROCODONE-ACETAMINOPHEN 5-325 MG ORAL TABLET 1 po q 6hr PRN co ugh HYDROCODONE-ACETAMINOPHEN 56763912533 No Longer Active Marcy De La Rosa MD PhD Active PREDNISONE 20 MG ORAL TABLET 2 tabs daily for 3 days, 1 tab daily for 3 days, 1/2 tab daily for 2 days PREDNISONE 81835918220 No Longer Active Carlton Hu MD Active CEFDINIR 300 MG ORAL CAPSULE by mouth twice a day 2011 CEFDINIR 22130076518 No Longer Active Carlton Hu MD Acti ve HYDROCHLOROTHIAZIDE 25 MG ORAL TABLET 1 TAB PO DAILY HYDROCHLOROTHIAZIDE 16620899643 Active ALFREDO Holly Ac tive ACETAMINOPHEN-CODEINE #3 300-30 MG ORAL TABLET 1 tablet po q 4-6 hrs prn pain ACETAMINOPHEN-CODEINE 66452165217 No Longer Active Ridge Bess DO Active ZITHROMAX 250 MG ORAL TABLET 2 po today, then 1 po q days 2-5 20 03/07/07 AZITHROMYCIN 22215448333 No Longer Active Carlton Hu MD Active CHERATUSSIN AC 100-10 MG/5ML ORAL SYRUP take 1 tsp po q4-6 h ours prn cough GUAIFENESIN-CODEINE 20770921817 No Longer Active Jayden Hu MD Active ACETAMINOPHEN-CODEINE #3 300-30 MG ORAL TABLET 1 PO Q 4-6 HR PRN PAIN ACETAMINOPHEN-CODEINE 05475443334 No Longer Active Da raimundo Hu MD Active LORTAB 7.5-500 MG/15ML ORAL ELIXIR 7.5 ml po q 4 hour prn cough HYDROCODONE-ACETAMINOPHEN 73289257463 No Longer Active Carlton Hu MD Active PREDNISONE 20 MG ORAL TABLET 1 po bid 3 days, then 1 po q day 3 days PREDNISONE 34259726514 No Longer Active Carlton Hu MD Active CEFDINIR 300 MG ORAL CAPSULE by mouth twice a day 2011 CEFDINIR 72004411008 No Longer Active Carlton Hu MD Acti ve CEFDINIR 300 MG ORAL CAPSULE by mouth twice a day 2010 CEFDINIR 86413212648 No Longer Active Carlton Hu MD Acti ve CEFDINIR 300 MG ORAL CAPSULE by mouth twice a day 2010 CEFDINIR 33605598462 No Longer Active Carlton Hu MD Acti ve TESSALON PERLES 100 MG ORAL CAPSULE 1 tablet by mouth 3 times daily as needed for cough BENZONATATE 48765289488 No Longer Active Carlton Hu MD Active CEFDINIR 300 MG ORAL CAPSULE by mouth twice a day 2010 CEFDINIR 20153323664 No Longer Active Carlton Hu MD Acti ve ZITHROMAX Z-REYNA 250 MG ORAL TABLET 2 today, then 1 daily for 4 d ays AZITHROMYCIN 74149703856 No Longer Active Hugo Restrepo MD Active TESSALON PERLES 100 MG ORAL CAPSULE 1 tablet by mouth 3 times daily as needed for cough TESSALON PERLES 100 MG ORAL CAPSULE 15553 7 BENZONATATE Inactive PREDNISONE 20 MG ORAL TABLET 1 po bid 3 days, then 1 po q day 3 days PREDNISONE 20 MG ORAL TABLET 964860 PREDNISONE Greer ctive LORTAB 7.5-500 MG/15ML ORAL [...] cough CHERATUSSIN AC 100-10 MG/5ML ORAL SYRUP 841985 GUAIFENESIN-CODEINE Inactive ACETAMINOPHEN-CODEINE #3 300-30 MG ORAL TABLET 1 tablet po q 4-6 hrs prn pain ACETAMINOPHEN-CODEINE #3 300-30 MG ORAL TABLET ACETAMINOPHEN-CODEINE Inactive HYDROCODONE-ACETAMINOPHEN 5-325 MG ORAL TABLET 1 po q 6hr PRN co ugh HYDROCODONE-ACETAMINOPHEN 5-325 MG ORAL TABLET 532193 HYDROCODONE-ACETAMINOPHEN Inactive AVELOX 400 MG ORAL TABLET 1 tab by mouth daily AVELOX 400 MG ORAL TABLET 602650 MOXIFLOXACIN HCL Inactive CHERATUSSIN AC 100-10 MG/5ML ORAL SYRUP 1 tsp by mouth every 4 hours as needed for cough CHERATUSSIN AC 100-10 MG/5ML ORAL SYRUP 9 97924 GUAIFENESIN-CODEINE Inactive TERBINAFINE HCL 250 MG ORAL TABLET 1 qDay 07/08 TERBINAFINE HCL 250 MG ORAL TABLET 845422 TERBINAFINE HCL Inactive CHERATUSSIN AC 100-10 MG/5ML ORAL SYRUP 1 tsp by mouth every 4 hours as needed for cough CHERATUSSIN AC 100-10 MG/5ML ORAL SYRUP 9 68930 GUAIFENESIN-CODEINE Inactive ACETAMINOPHEN-CODEINE #3 300-30 MG ORAL TABLET 1 PO Q 4-6 HRS [place] N PAIN ACETAMINOPHEN-CODEINE #3 300-30 MG ORAL TABLET ACETAMINOPHEN-CODEINE Inactive CHERATUSSIN AC 100-10 MG/5ML ORAL SYRUP 1 tsp by mouth every 4 hours as needed for cough CHERATUSSIN AC 100-10 MG/5ML ORAL SYRUP 9 36826 GUAIFENESIN-CODEINE Inactive AUGMENTIN 875-125 MG ORAL TABLET 1 tab by mouth twice daily with food AUGMENTIN 875-125 MG ORAL TABLET 922356 AMOXICIL MADELINE-POT CLAVULANATE Inactive CHERATUSSIN AC 100-10 MG/5ML ORAL SYRUP take one tsp po Q 6h ours prn cough CHERATUSSIN AC 100-10 MG/5ML ORAL SYRUP 179220 GUAIFENESIN-CODEINE Inactive PROPRANOLOL HCL 60 MG ORAL TABLET 1 PO Q D PROPRANOLOL HCL 60 MG ORAL TABLET 487772 PROPRANOLOL HCL Inactive TOPAMAX 50 MG ORAL TABLET take 1 tab po BID for migraines. 07/02 TOPAMAX 50 MG ORAL TABLET 340900 TOPIRAMATE Inacti ve TOPAMAX 25 MG ORAL TABLET 1 qHS x 1 week, then 1 BID x 1 week, then 1 qAM and 2 qHS x 1 week, then 2 BID (migraine prevention) TOPAMAX 25 MG ORAL TABLET 374084 TOPIRAMATE Inactive LYRICA 75 MG ORAL CAPSULE TAKE 1 CAPSULE BY MOUTH TWICE DAILY LYRICA 75 MG ORAL CAPSULE PREGABALIN Inactive SYMBICORT 160-4.5 MCG/ACT INHALATION AEROSOL 2 puffs bid wit h rinse after SYMBICORT 160-4.5 MCG/ACT INHALATION AEROSOL BUDESONIDE- FORMOTEROL FUMARATE Inactive PROMETHAZINE-CODEINE 6.25-10 MG/5ML ORAL SYRUP 1 tsp b y mouth every 8 hours prn cough PROMETHAZINE-CODEINE 6.25-10 MG/ 5ML ORAL SYRUP 222620 PROMETHAZINE-CODEINE Inactive CYMBALTA 30 MG ORAL CAPSULE DELAYED RELEASE PARTICLES 1 cap by mouth daily CYMBALTA 30 MG ORAL CAPSULE DELAYED RELE ASE PARTICLES 110444 DULOXETINE HCL Inactive PREMARIN 0.625 MG ORAL TABLET TAKE 1 TAB BY MOUTH DAILY PREMARIN 0.625 MG ORAL TABLET ESTROGENS CONJUGATED Inactive CHERATUSSIN AC 100-10 MG/5ML ORAL SYRUP 1 tsp by mouth every 4 hours as needed for cough CHERATUSSIN AC 100-10 MG/5ML ORAL SYRUP 9 26053 GUAIFENESIN-CODEINE Inactive PROMETHAZINE-CODEINE 6.25-10 MG/5ML ORAL SYRUP 1 tsp b y mouth every 6 hours if needed for cough PROMETHAZINE-CODEINE 6.25-10 MG/5ML ORAL SYRUP 374103 PROMETHAZINE-CODEINE Inactive CHERATUSSIN AC 100-10 MG/5ML ORAL SYRUP 1 tsp by mouth every 4 hours as needed for cough CHERATUSSIN AC 100-10 MG/5ML ORAL SYRUP 9 47415 GUAIFENESIN-CODEINE Inactive FLUTICASONE PROPIONATE 50 MCG/ACT NASAL SUSPENSION 1 t o 2 sprays each nostril daily FLUTICASONE PROPIONATE 50 MCG/AC T NASAL SUSPENSION 5738873 FLUTICASONE PROPIONATE Inactive PREDNISONE 20 MG ORAL TABLET 3 tab PO qd x 2d, 2 tab P O qd x 2d, 1 tab PO qd x 2d, 1/2 tab PO qd x 2d PREDNISONE 20 MG ORAL TAB LET 622359 PREDNISONE Inactive LEVOFLOXACIN 500 MG ORAL TABLET 1 tab PO daily x 10 days LEVOFLOXACIN 500 MG ORAL TABLET 636110 LEVOFLOXACIN Inactive CYCLOBENZAPRINE HCL 10 MG ORAL TABLET 1 tablet by mouth BID prn had pain CYCLOBENZAPRINE HCL 10 MG ORAL TABLET 290781 CYCLOBENZAPRINE HCL Inactive ZOCOR 40 MG ORAL TABLET 1 tab by mouth daily 4 ZOCOR 40 MG ORAL TABLET 778164 SIMVASTATIN Inactive TUSSIONEX PENNKINETIC ER 10-8 MG/5ML [...] FLUTICASONE PROPIO EFE 50 MCG/ACT NASAL SUSPENSION 8127998 FLUTICASONE PROPIONATE Inactive TUSSIONEX PENNKINETIC ER 10-8 [...] three days PREDNISONE 20 MG ORAL TABLET 299164 PREDNIS ONE Inactive PROAIR HFA 108 (90 BASE) MCG/ACT INHALATION AEROSOL SO LUTION 2 puffs four times a day as needed PROAIR HFA 108 (90 B ASE) MCG/ACT INHALATION AEROSOL SOLUTION ALBUTEROL SULFATE Inactive PREDNISONE 20 MG ORAL TABLET two tabs by mouth today, then one tab by mouth days two and three and four PREDNISONE 20 MG ORAL TAB LET 107400 PREDNISONE Inactive TUSSIONEX PENNKINETIC ER 10-8 MG/5ML [...] bid 04/20 TOPAMAX 100 MG ORAL TABLET 533110 TOPIRAMATE Inactive ZITHROMAX Z-REYNA 250 MG ORAL TABLET 2 today, then 1 daily for 4 d ays ZITHROMAX Z-REYNA 250 MG ORAL TABLET 842697 AZITHROMYCIN Inactive CEFDINIR 300 MG ORAL CAPSULE [...] 20 03/07/07 ZITHROMAX 250 MG ORAL TABLET 182837 AZITHROMYCIN [place] ctive CEFDINIR 300 MG ORAL CAPSULE by mouth twice a day 2011 CEFDINIR 300 MG ORAL CAPSULE 775529 CEFDINIR Inactive PREDNISONE 20 MG ORAL TABLET 2 tabs daily for 3 days, 1 tab daily for 3 days, 1/2 tab daily for 2 days PREDNISONE 20 MG ORAL T ABLET 109901 PREDNISONE Inactive AVELOX 400 MG ORAL TABLET 1 tab by mouth daily AVELOX 400 MG ORAL TABLET 982853 MOXIFLOXACIN HCL Inactive AVELOX 400 MG ORAL TABLET 1 tab by mouth daily AVELOX 400 MG ORAL TABLET 596097 MOXIFLOXACIN HCL Inactive PREDNISONE 20 MG ORAL TABLET Take 3 tabs daily for 3 d ays, 2 tabs daily for 3 days, 1 tab daily for 3 days, 1/2 tab daily for 3 days 11/07 PREDNISONE 20 MG ORAL TABLET 823234 PREDNISONE Inactive LEVAQUIN 500 MG ORAL TABLET take one po QD LEVAQUIN 500 MG ORAL TABLET 313809 LEVOFLOXACIN Inactive AZITHROMYCIN 250 MG ORAL TABLET 2 po qd x 1 day, then 1 po q d x 4 days AZITHROMYCIN 250 MG ORAL TABLET 820353 AZITHROMY GIOVANNI Inactive MEDROL 4 MG ORAL TABLET THERAPY PACK 6 tabs on day 1, 5 tabs on day 2, 4 tabs on day 3, 3 tabs on day 4, 2 tabs on day 5, 1 tab on day 6 2013 MEDROL 4 MG ORAL TABLET THERAPY PACK 527547 METHYLPREDNISOLONE [place] ctive CHERATUSSIN AC 100-10 MG/5ML ORAL SYRUP 5ml po q6hr PRN Cough 20 13/04/14 CHERATUSSIN AC 100-10 MG/5ML ORAL SYRUP 555710 GUAIFENE SIN-CODEINE Inactive TRIAMCINOLONE ACETONIDE 0.1 % EXTERNAL CREAM apply three roger es daily prn rash TRIAMCINOLONE ACETONIDE 0.1 % EXTERNAL CREAM 101 4314 TRIAMCINOLONE ACETONIDE Inactive AZITHROMYCIN 250 MG ORAL TABLET 2 po qd x 1 day, then 1 po q d x 4 days AZITHROMYCIN 250 MG ORAL TABLET 525962 AZITHROMY GIOVANNI Inactive MEDROL 4 MG ORAL TABLET THERAPY PACK 6 pills x 1 day, then 5 pills x 1 day then 4 pills x 1 day, then 3 pills x 1 day, then 2 pills x 1 day, then 1 pill x 1 day, then stop MEDROL 4 MG ORAL TABLET THERAPY PACK 762197 METHYLPREDNISOLONE Inactive AMOXICILLIN 500 MG ORAL CAPSULE 1 tab by mouth 3 times daily x 10 days AMOXICILLIN 500 MG ORAL CAPSULE 248739 AMOXICILL IN Inactive AMOXICILLIN 500 MG ORAL CAPSULE 1 tab by mouth 3 times daily x 10 days AMOXICILLIN 500 MG ORAL CAPSULE 128007 AMOXICILL IN Inactive ZITHROMAX 250 MG ORAL TABLET 2 po today, then 1 po q days 2-5 20 12/08/14 ZITHROMAX 250 MG ORAL TABLET 052844 AZITHROMYCIN [place] ctive AUGMENTIN 875-125 MG ORAL TABLET 1 po BID x 10 days 20 13/01/20 AUGMENTIN 875-125 MG ORAL TABLET 604180 AMOXICILLIN-POT CLAVULANATE Inactive ZITHROMAX Z-REYNA 250 MG ORAL TABLET 2 today, then 1 daily for 4 d ays ZITHROMAX Z-REYNA 250 MG ORAL TABLET 197064 AZITHROMYCIN Inactive ZITHROMAX 250 MG ORAL TABLET 2 po today, then 1 po q days 2-5 20 14/03/21 ZITHROMAX 250 MG ORAL TABLET 351218 AZITHROMYCIN Greer ctive ZITHROMAX Z-REYNA 250 MG ORAL TABLET 2 today, then 1 daily for 4 d ays ZITHROMAX Z-REYNA 250 MG ORAL TABLET 019941 AZITHROMYCIN Inactive CEFDINIR 300 MG ORAL CAPSULE 1 po BID x 10 days 06/21 CEFDINIR 300 MG ORAL CAPSULE 188206 CEFDINIR Inactive ZITHROMAX 250 MG ORAL TABLET 2 po today, then 1 po q days 2-5 20 13/08/10 ZITHROMAX 250 MG ORAL TABLET 671354 AZITHROMYCIN Greer ctive LEVAQUIN 500 MG ORAL TABLET 1 tablet by mouth daily 13/09/24 LEVAQUIN 500 MG ORAL TABLET 014379 LEVOFLOXACIN Inactive SINGULAIR 10 MG ORAL TABLET 1 po qday for allergies 20 14/01/12 SINGULAIR 10 MG ORAL TABLET 162010 MONTELUKAST SODIUM Inactive AMOXICILLIN 500 MG ORAL CAPSULE 2 po BID x 10 days 201 09/29/08 AMOXICILLIN 500 MG ORAL CAPSULE 784186 AMOXICILLIN Inactive PREDNISONE 20 MG ORAL TABLET 2 tabs daily for 3 days, 1 tab daily for 3 days, 1/2 tab daily for 2 days PREDNISONE 20 MG ORAL T ABLET 415047 PREDNISONE Inactive ZITHROMAX Z-REYNA 250 MG ORAL TABLET 2 today, then 1 daily for 4 d ays ZITHROMAX Z-REYNA 250 MG ORAL TABLET 734041 AZITHROMYCIN Inactive PREDNISONE 20 MG ORAL TABLET 2 tabs daily for 3 days, 1 tab daily for 3 days, 1/2 tab daily for 2 days PREDNISONE 20 MG ORAL T ABLET 410636 PREDNISONE Inactive ZITHROMAX 250 MG ORAL TABLET 2 po today, then 1 po q days 2-5 20 14/09/04 ZITHROMAX 250 MG ORAL TABLET 866244 AZITHROMYCIN Greer ctive AMOXICILLIN 500 MG ORAL CAPSULE 1 cap by mouth three times a day AMOXICILLIN 500 MG ORAL CAPSULE 921282 AMOXICILLIN Inactive TERBINAFINE HCL 250 MG ORAL TABLET 1 qDay for nail fungus 7 TERBINAFINE HCL 250 MG ORAL TABLET 129631 TERBINAFINE HCL Inact nael AUGMENTIN 875-125 MG ORAL TABLET 1 po BID x 10 days 16/03/22 AUGMENTIN 875-125 MG ORAL TABLET 625086 AMOXICILLIN-POT CLAVULANATE Inactive PREDNISONE 20 MG ORAL TABLET 2 po qd x 5 days PREDNISONE 20 MG ORAL TABLET 793752 PREDNISONE Inactive AZITHROMYCIN 250 MG ORAL TABLET 2 po qd x 1 day, then 1 po q d x 4 days AZITHROMYCIN 250 MG ORAL TABLET 941018 AZITHROMY GIOVANNI Inactive PREDNISONE 50 MG ORAL TABLET Take 50 mg dialy for 6 day s 7 PREDNISONE 50 MG ORAL TABLET 878552 PREDNISONE Inactive AUGMENTIN 875-125 MG ORAL TABLET 1 po BID x 10 days 20 18/04/16 AUGMENTIN 875-125 MG ORAL TABLET 617874 AMOXICILLIN-POT CLAVULANATE Inactive DOXYCYCLINE HYCLATE 100 MG ORAL CAPSULE 1 cap by mouth twice latasha ly DOXYCYCLINE HYCLATE 100 MG ORAL CAPSULE 3731787 DOXYCYCL INE HYCLATE Inactive PREDNISONE 20 MG ORAL TABLET Take 2 tabs day 1 and 2 and 1 t ab days 3 and 4 PREDNISONE 20 MG ORAL TABLET 071122 PREDNISONE Inactive Vital Signs Date Name Value [...] - Chem istry sodium, serum 139 mmol/L 387-377 3991/03/19 potassium, serum 3.6 mmol/L 3.5-5.2 chloride, serum 100 mmol/L 98-107 carbon dioxide, venous blood 30.3 mmol/L 21.0-32 .0 blood glucose 101 mg/dL 65-110 calcium, serum 9.4 mg/dL 8.5-10.1 urea nitrogen, blood 10 mg/dL 7-18 creatinine, serum 0.96 mg/dL 0.60-1.30 sodium, serum 139 mmol/L 347-504 5457/10/12 potassium, serum 3.8 mmol/L 3.5-5.2 chloride, serum 102 mmol/L 98-107 carbon dioxide, venous blood 29.4 mmol/L 21.0-32 .0 blood glucose 103 mg/dL 65-95 calcium, serum 8.8 mg/dL 8.5-10.1 urea nitrogen, blood 10 mg/dL 7-18 creatinine, serum 0.97 mg/dL 0.60-1.30 Estimated Glomerular Filtration Rate (calc) 62 (?) mL/min/1.73m2 = OR > 60 mL/min Encounters Code Encounter Date Provider Facility CPT-93918 Level 3 Est. Patient 09:46:49 CHECKOUT SUPERVISOR David lion [facility]-06746 [id number] Vst-Est Level III 11:12:16 CDT Yanet Bess DO [facility]-83037 Level 3 Est. Patient 11:34:49 CHECKOUT SUPERVISOR Perez Mora MD [facility] CPT-46135 Level 4 Est. Patient 09:51:32 CHECKOUT SUPERVISOR Carlton rich MD [facility]-70104 Level 3 Est. Patient 10:26:00 CHECKOUT SUPERVISOR Elise stephenson [facility]-84365 Level 3 Est. Patient 13:35:41 CHECKOUT SUPERVISOR Carlton rich MD [facility]-17555 Level 3 Est. Patient 10:03:52 CHECKOUT SUPERVISOR Carlton rich MD [facility]-82129 Level 3 Est. Patient 12:17:50 CDT Hugo Restrepo MD [facility] CPT-48627 Level 3 Est. Patient 13:42:38 CDT Elise stephenson [facility] [place] CPT-52127 Level 3 Est. Patient 13:23:51 CDT Diya cobian [facility]-50981 Level 3 Est. Patient 14:22:19 CHECKOUT SUPERVISOR Diya cobian [facility] [place] CPT-89471 Level 3 Est. Patient 10:11:46 CDT Carlton rich MD [facility] CPT-35092 Level 3 Est. Patient 17:29:43 CDT Elise Are [facility] CPT-88799 Level 3 Est. Patient 11:58:06 CDT Elise Are [facility] CPT-76268 Level 4 Est. Patient 14:36:51 CDT Carlton rich MD [facility] CPT-68054 Level 3 Est. Patient 18:16:00 CHECKOUT SUPERVISOR Blaine Freeman [facility] CPT-67528 Level 3 Est. Patient 09:45:49 CHECKOUT SUPERVISOR Carlton rich MD [facility] CPT-98546 Level 3 Est. Patient 13:19:20 CDT Carlton rich MD [facility] CPT-97146 Level 3 Est. Patient 13:06:43 CDT Ridge tam DO [facility] CPT-58650 Level 3 Est. Patient 10:03:07 CDT Perez Mora MD [facility] CPT-61782 Level 3 Est. Patient 19:50:35 CHECKOUT SUPERVISOR Carlton rich MD [facility] CPT-53430 Level 4 Est. Patient 18:05:01 CHECKOUT SUPERVISOR Carlton rich MD [facility] CPT-52869 Level 3 Est. Patient 10:45:55 CHECKOUT SUPERVISOR Hugo Restrepo MD [facility] CPT-15781 Level 3 Est. Patient 14:12:[address] [facility] [place]-22496 Level 3 Est. Patient 17:37:24 CDT Carlton rich MD [facility] CPT-74440 Level 3 Est. Patient 16:51:54 CDT Carlton rich MD [facility] CPT-22105 Level 3 Est. Patient 12:18:11 CDT Hugo Restrepo MD [facility] CPT-30121 Level 3 Est. Patient 11:30:25 CDT Marcy crisostomo MD PhD [facility] CPT-74847 Level 3 Est. Patient 12:00:47 CHECKOUT SUPERVISOR Carlton rich MD [facility] CPT-89221 Level 3 Est. Patient 16:31:06 CHECKOUT SUPERVISOR Carlton rich MD [facility] CPT-47241 Level 3 Est. Patient 16:23:24 CHECKOUT SUPERVISOR Ridge tam [facility] CPT-03367 Level 3 Est. Patient 12:34:12 CDT Carlton rich MD [facility] CPT-32037 Level 2 Est. Patient 15:43:33 CDT Robi armstrong MD [facility] CPT-94186 Level 4 Est. Patient 14:04:44 CDT Carlton rich MD [facility] CPT-51622 Level 3 Est. Patient 05:47:59 CDT Ridge tam [facility] CPT-08248 Level 3 Est. Patient 13:12:53 CHECKOUT SUPERVISOR Carlton rich MD [facility] CPT-20782 Level 3 Est. Patient 14:26:53 CDT Hugo [...] CPT-J1100 Decadron 6mg (Dexamethasone) 14:32:13 CDT 2 CPT-21883 Hip bilat min 2V w AP pelvis 13:16:20 CDT 2 CPT-94201 Pelvis only 13:07:33 CDT CPT-58816 Spec Collection and Handling Fee 11:25:12 C DT CPT-93075 Fluzone Quadrivalent Intramuscular Suspe nsion 0.5 ML 14:31:55 CDT CPT-97052 Abx/Therapy Injection 13:28:47 CHECKOUT SUPERVISOR CPT-J2930 Solu Medrol 125 mg (Methyl Prednisolone Sodium Succinate) 12:00:47 CHECKOUT SUPERVISOR CPT-06064 Venipuncture Draw Fee 11:33:31 CDT CPT-04011 EKG Trac and Interp 11:21:09 CDT CPT-28896 Chest 2V Frontal and Lat 11:21:09 CDT 12/15 CPT-33411 Venipuncture Draw Fee 08:02:34 CDT CPT-43655 Chest 2V Frontal and Lat 05:47:59 CDT 06/05
--- OUTSIDE RECORDS SUMMARY | 2019-10-08 09:16 | XMS REPORT | Clinical Summary ---
Author Author Caitlin, Juliana Martinez Organization [facility] Address Unknown Phone Unavailable Allergies, Adverse Reactions, [...] URI 465.9 Inactive Ridge Bess DO Ac [place] upper respiratory infections of unspecified site Body [...] po q12hr PRN Cough HYDROCOD POLST-CHLORPHEN POLST 57243497654 Active David Marianne MECHANICAL DEVELOPMENT ENGINEER Active PREDNISONE 20 MG ORAL TABLET Take 2 tabs day 1 and 2 and 1 t ab days 3 and 4 PREDNISONE 74061724961 No Longer Active David Marianne MECHANICAL DEVELOPMENT ENGINEER Active DOXYCYCLINE HYCLATE 100 MG ORAL CAPSULE 1 cap by mouth twice latasha ly DOXYCYCLINE HYCLATE 95335471146 Active David Marianne MECHANICAL DEVELOPMENT ENGINEER Active TOPAMAX 100 MG ORAL TABLET Take 1 tablet po bid TOPIRAMATE 60541716437 No Longer Active David Marianne MECHANICAL DEVELOPMENT ENGINEER Active TUSSIONEX PENNKINETIC ER 10-8 MG/5ML ORAL SUSPENSION E XTENDED RELEASE 5ml po q12hr PRN Cough HYDROCOD POLST-CHLORPHEN POLST 5 5703722191 No Longer Active David Marianne MECHANICAL DEVELOPMENT ENGINEER Active AUGMENTIN 875-125 MG ORAL TABLET 1 po BID x 10 days 20 18/04/16 AMOXICILLIN-POT CLAVULANATE 24303164406 No Longer Active David Marianne MECHANICAL DEVELOPMENT ENGINEER Active PREDNISONE 50 MG ORAL TABLET Take 50 mg dialy for 6 day s 7 PREDNISONE 72273504316 No Longer Active David Lopes APRN Active TUSSIONEX PENNKINETIC ER 10-8 MG/5ML ORAL SUSPENSION E XTENDED RELEASE 5ml po q12hr PRN Cough HYDROCOD POLST-CHLORPHEN POLST 5 1945431007 No Longer Active Cherelle Torres RN Active PREDNISONE 20 MG ORAL TABLET two tabs by mouth today, then one tab by mouth days two and three and four PREDNISONE 68779903750 No Lo nger Active Cherelle Torres RN Active AZITHROMYCIN 250 MG ORAL TABLET 2 po qd x 1 day, then 1 po q d x 4 days AZITHROMYCIN 01774724448 No Longer Active Ridge Bess DO Active PREDNISONE 20 MG ORAL TABLET 2 po qd x 5 days P REDNISONE 15020220276 No Longer Active Perez Mora MD Active PROAIR HFA 108 (90 BASE) MCG/ACT INHALATION AEROSOL SO LUTION 2 puffs four times a day as needed ALBUTEROL SULFATE 27954443757 No Long er Active Becky AGUILARA Active ASPIRIN 81 MG ORAL TABLET 1 po qd ASPIRIN 87560832260 Active Carlton Hu MD Active PREDNISONE 20 MG ORAL TABLET 1 tab twice daily for 3 d ay, then one daily for three days PREDNISONE 09093407214 No Longer Active Carlton Hu MD Active AUGMENTIN 875-125 MG ORAL TABLET 1 po BID x 10 days 16/03/22 AMOXICILLIN-POT CLAVULANATE 68455080770 No Longer Active Elise Garcia APRN Active TERBINAFINE HCL 250 MG ORAL TABLET 1 qDay for nail fungus 7 TERBINAFINE HCL 39388700081 No Longer Active Carlton Hu MD A ctive AMOXICILLIN 500 MG ORAL CAPSULE 1 cap by mouth three times a day AMOXICILLIN 89556083488 No Longer Active Carlton Hu MD Active ELMIRON 100 MG ORAL CAPSULE 2 tablets in the am and 1 tablet at hs PENTOSAN POLYSULFATE SODIUM 07573426864 No Longer Active Robert jade Hu MD Active MUCINEX D 60-600 MG ORAL TABLET EXTENDED RELEASE 12 HOUR 1 t ab po q am PSEUDOEPHEDRINE-GUAIFENESIN 19889551114 No Longer Act nael Carlton Hu MD Active MUCINEX DM MAXIMUM STRENGTH 60-1200 MG ORAL TABLET EXT ENDED RELEASE 12 HOUR 1 tab po q am DEXTROMETHORPHAN-GUAIFENESIN 92280681373 No Longer Active Carlton Hu MD Active TUSSIONEX PENNKINETIC ER 10-8 MG/5ML ORAL SUSPENSION E XTENDED RELEASE 5ml po q12hr PRN Cough HYDROCOD POLST-CHLORPHEN POLST 5 6275289736 No Longer Active Carlton Hu MD Active POTASSIUM CHLORIDE ER 20 MEQ ORAL TABLET EXTENDED RELE ASE Take 1 by mouth 4 times daily for 7 days POTASSIUM CHLORIDE 55298487414 No Longer Active Carlton Hu MD Active ZITHROMAX 250 MG ORAL TABLET 2 po today, then 1 po q days 2-5 14/09/04 AZITHROMYCIN 66642588017 No Longer Active Elise Garcia APRN Active TUSSIONEX PENNKINETIC ER 10-8 MG/5ML ORAL SUSPENSION E XTENDED RELEASE 5 ml twice a day as needed for cough HYDROCOD POLST-CHLORPH EN POLST 53128129247 No Longer Active Elise Garcia APRN Active MONTELUKAST SODIUM 10 MG ORAL TABLET 1 po daily for Allergy MONTELUKAST SODIUM 66088710768 Active Carlton Hu MD Ac tive TUSSIONEX PENNKINETIC ER 10-8 MG/5ML ORAL SUSPENSION E XTENDED RELEASE 5ml po q12hr PRN Cough HYDROCOD POLST-CHLORPHEN POLST 5 1199682939 No Longer Active Hugo Restrepo MD Active GABAPENTIN 100 MG ORAL CAPSULE 1 po BID for fibromyalgia GABAPENTIN 65622565887 Active Carlton Hu MD Active LYRICA 100 MG ORAL CAPSULE Take 1 tab po BID for fibromyalgia 20 11/08/21 PREGABALIN 62721230261 No Longer Active Elise Garcia APRN A ctive PREDNISONE 20 MG ORAL TABLET 2 tabs daily for 3 days, 1 tab daily for 3 days, 1/2 tab daily for 2 days PREDNISONE 99070760282 No Longer Active Venullina Cesarl MECHANICAL DEVELOPMENT ENGINEER Active TUSSIONEX PENNKINETIC ER 10-8 MG/5ML ORAL SUSPENSION E XTENDED RELEASE 5 mL PO q 12 hrs PRN cough HYDROCOD POLST-CHLORPHEN POLST 606068 35601 No Longer Active Jillina Frazell MECHANICAL DEVELOPMENT ENGINEER Active FLUTICASONE PROPIONATE 50 MCG/ACT NASAL SUSPENSION 2 s prays each nostril daily until bottle is empty FLUTICASONE PROPIONATE 227932568 99 No Longer Active Jillina Frazell MECHANICAL DEVELOPMENT ENGINEER Active ASMANEX 60 METERED DOSES 220 MCG/INH INHALATION AEROSO L POWDER BREATH ACTIVATED 1 puff bid with rinse after MOMETASONE FUROATE 7524190 4102 No Longer Active Venullina Cesarl MECHANICAL DEVELOPMENT ENGINEER Active ZITHROMAX Z-REYNA 250 MG ORAL TABLET 2 today, then 1 daily for 4 d ays AZITHROMYCIN 29009368729 No Longer Active Elise Garcia APRN Active TUSSIONEX PENNKINETIC ER 10-8 MG/5ML ORAL SUSPENSION E XTENDED RELEASE 5ml po q12hr PRN Cough HYDROCOD POLST-CHLORPHEN POLST 5 7531891419 No Longer Active Elise Garcia APRN Active PREDNISONE 20 MG ORAL TABLET 2 tabs daily for 3 days, 1 tab daily for 3 days, 1/2 tab daily for 2 days PREDNISONE 28169870875 No Longer Active Jillina Daphnezell MECHANICAL DEVELOPMENT ENGINEER Active AMOXICILLIN 500 MG ORAL CAPSULE 2 po BID x 10 days 201 09/29/08 AMOXICILLIN 04072106309 No Longer Active Jillina Frazell MECHANICAL DEVELOPMENT ENGINEER Act nael SINGULAIR 10 MG ORAL TABLET 1 po qday for allergies 20 14/01/12 MONTELUKAST SODIUM 06901449917 No Longer Active Carlton Hu MD Active LEVAQUIN 500 MG ORAL TABLET 1 tablet by mouth daily 20 13/09/24 LEVOFLOXACIN 46324932757 No Longer Active Carlton Hu MD Acti ve FLUTICASONE PROPIONATE 50 MCG/ACT NASAL SUSPENSION 2 s prays each nostril daily for 2 weeks, then 1 spray each nostril daily. FLUTICASONE PROPIONATE 74273426070 Active ALFREDO Holly Active ZITHROMAX 250 MG ORAL TABLET 2 po today, then 1 po q days 2-5 20 13/08/10 AZITHROMYCIN 07003658687 No Longer Active Elise Garcia APRN Active XANAX 0.5 MG ORAL TABLET one tablet by mouth daily prn anxiety 2015 ALPRAZOLAM 79511990110 Active ALFREDO Holly Active CYMBALTA 30 MG ORAL CAPSULE DELAYED RELEASE PARTICLES 1 cap by mouth daily for depression DULOXETINE HCL 70588678007 Active ALFREDO Holly Active CEFDINIR 300 MG ORAL CAPSULE 1 po BID x 10 days CEFDINIR 12076213702 No Longer Active Carlton Hu MD Active ZOCOR 40 MG ORAL TABLET 1 tab by mouth daily SI MVASTATIN 74825046896 No Longer Active Carlton Hu MD Active CYCLOBENZAPRINE HCL 10 MG ORAL TABLET 1 tablet by mouth BID prn had pain CYCLOBENZAPRINE HCL 15557219849 No Longer Active Jayden Hu MD Active LEVOFLOXACIN 500 MG ORAL TABLET 1 tab PO daily x 10 days LEVOFLOXACIN 08169742411 No Longer Active Carlton Hu MD Acti ve PREDNISONE 20 MG ORAL TABLET 3 tab PO qd x 2d, 2 tab P O qd x 2d, 1 tab PO qd x 2d, 1/2 tab PO qd x 2d PREDNISONE 08088541709 No Lo nger Active Carlton Hu MD Active FLUTICASONE PROPIONATE 50 MCG/ACT NASAL SUSPENSION 1 t o 2 sprays each nostril daily FLUTICASONE PROPIONATE 74771407209 No Longer Ac tive Blaine HERNANDEZ Active CHERATUSSIN AC 100-10 MG/5ML ORAL SYRUP 1 tsp by mouth every 4 hours as needed for cough GUAIFENESIN-CODEINE 73174062179 No Longe r Active Blaine HERNANDEZ Active PROMETHAZINE-CODEINE 6.25-10 MG/5ML ORAL SYRUP 1 tsp b y mouth every 6 hours if needed for cough PROMETHAZINE-CODEINE 63799462020 No Longer Active Blaine HERNANDEZ Active CHERATUSSIN AC 100-10 MG/5ML ORAL SYRUP 1 tsp by mouth every 4 hours as needed for cough GUAIFENESIN-CODEINE 04535800981 No Longe r Active Blaine HERNANDEZ Active ZITHROMAX Z-REYNA 250 MG ORAL TABLET 2 today, then 1 daily for 4 d ays AZITHROMYCIN 49199667831 No Longer Active Columba Raida Act nael ZITHROMAX 250 MG ORAL TABLET 2 po today, then 1 po q days 2-5 20 14/03/21 AZITHROMYCIN 15303933588 No Longer Active Carlton Hu MD Active ZITHROMAX Z-REYNA 250 MG ORAL TABLET 2 today, then 1 daily for 4 d ays AZITHROMYCIN 94966188220 No Longer Active Columba Raida Act nael AUGMENTIN 875-125 MG ORAL TABLET 1 po BID x 10 days 13/01/20 AMOXICILLIN-POT CLAVULANATE 11856328076 No Longer Active Diya De Guzman APRN Active ZITHROMAX 250 MG ORAL TABLET 2 po today, then 1 po q days 2-5 20 12/08/14 AZITHROMYCIN 93523158241 No Longer Active Carlton Hu MD Active TRAMADOL HCL 50 MG ORAL TABLET 1 po tid with ES Tylenol TRAMADOL HCL 84178109367 Active Adrienne Galvez PHYSICAL DAMAGE APPRAISER Active PREMARIN 0.625 MG ORAL TABLET TAKE 1 TAB BY MOUTH DAILY ESTROGENS CONJUGATED 92969176627 No Longer Active Ridge Bess DO A ctive CYMBALTA 30 MG ORAL CAPSULE DELAYED RELEASE PARTICLES 1 cap by mouth daily DULOXETINE HCL 10337011668 No Longer Active Ridge Ya ee DO Active AMOXICILLIN 500 MG ORAL CAPSULE 1 tab by mouth 3 times daily x 10 days AMOXICILLIN 76814580225 No Longer Active Carlton bustamante MD Active AMOXICILLIN 500 MG ORAL CAPSULE 1 tab by mouth 3 times daily x 10 days AMOXICILLIN 55153250081 No Longer Active Carlton bustamante MD Active PROMETHAZINE-CODEINE 6.25-10 MG/5ML ORAL SYRUP 1 tsp b y mouth every 8 hours prn cough PROMETHAZINE-CODEINE 81724518385 No Longer Acti ve Carlton Hu MD Active MEDROL 4 MG ORAL TABLET THERAPY PACK 6 pills x 1 day, then 5 pills x 1 day then 4 pills x 1 day, then 3 pills x 1 day, then 2 pills x 1 day, then 1 pill x 1 day, then stop METHYLPREDNISOLONE 20045166658 No Long er Active Perez Mora MD Active AZITHROMYCIN 250 MG ORAL TABLET 2 po qd x 1 day, then 1 po q d x 4 days AZITHROMYCIN 51061495600 No Longer Active Perez Ambriz MD Active SYMBICORT 160-4.5 MCG/ACT INHALATION AEROSOL 2 puffs bid wit h rinse after BUDESONIDE-FORMOTEROL FUMARATE 21519694661 N o Longer Active Perez Mora MD Active LYRICA 75 MG ORAL CAPSULE TAKE 1 CAPSULE BY MOUTH TWICE DAILY PREGABALIN 64894895944 No Longer Active Carlton Hu MD Acti ve TOPAMAX 25 MG ORAL TABLET 1 qHS x 1 week, then 1 BID x 1 week, then 1 qAM and 2 qHS x 1 week, then 2 BID (migraine prevention) T OPIRAMATE 55195108124 No Longer Active Jerica FUENTES Active TOPAMAX 50 MG ORAL TABLET take 1 tab po BID for migraines. 07/02 TOPIRAMATE 21457592773 No Longer Active Jerica FUENTES Active TRIAMCINOLONE ACETONIDE 0.1 % EXTERNAL CREAM apply three roger es daily prn rash TRIAMCINOLONE ACETONIDE 92072656960 No Longer Active Carlton Hu MD Active PAXIL 40 MG ORAL TABLET take 1 tab po qday for depression 0 PAROXETINE HCL 38015844861 Active ALFREDO Holly Active CHERATUSSIN AC 100-10 MG/5ML ORAL SYRUP 5ml po q6hr PRN Cough 20 13/04/14 GUAIFENESIN-CODEINE 02178341335 No Longer Active Carlton Hu MD Active MEDROL 4 MG ORAL TABLET THERAPY PACK 6 tabs on day 1, 5 tabs on day 2, 4 tabs on day 3, 3 tabs on day 4, 2 tabs on day 5, 1 tab on day 6 2013 METHYLPREDNISOLONE 55611957565 No Longer Active Perez Mora MD Active AZITHROMYCIN 250 MG ORAL TABLET 2 po qd x 1 day, then 1 po q d x 4 days AZITHROMYCIN 11907104017 No Longer Active Perez Ambriz MD Active PROPRANOLOL HCL 60 MG ORAL TABLET 1 PO Q D PROPRANOLOL HCL 25749980309 No Longer Active Perez Mora MD Activ e CHERATUSSIN AC 100-10 MG/5ML ORAL SYRUP take one tsp po Q 6h ours prn cough GUAIFENESIN-CODEINE 52590444845 No Longer Active Zia Mora MD Active AUGMENTIN 875-125 MG ORAL TABLET 1 tab by mouth twice daily with food AMOXICILLIN-POT CLAVULANATE 67527937231 No Longer Act nael Perez Mora MD Active CHERATUSSIN AC 100-10 MG/5ML ORAL SYRUP 1 tsp by mouth every 4 hours as needed for cough GUAIFENESIN-CODEINE 22836658082 No Longe r Active Hugo Restrepo MD Active ACETAMINOPHEN-CODEINE #3 300-30 MG ORAL TABLET 1 PO Q 4-6 HRS CA N PAIN ACETAMINOPHEN-CODEINE 99863213637 No Longer Active Hugo Restrepo MD Active LEVAQUIN 500 MG ORAL TABLET take one po QD LEVO FLOXACIN 50364694191 No Longer Active Griffin HERNANDEZ Active PREDNISONE 20 MG ORAL TABLET Take 3 tabs daily for 3 d ays, 2 tabs daily for 3 days, 1 tab daily for 3 days, 1/2 tab daily for 3 days 11/07 PREDNISONE 70082264070 No Longer Active Carlton Hu MD Acti ve AVELOX 400 MG ORAL TABLET 1 tab by mouth daily MOXIFLOXACIN HCL 25186380730 No Longer Active Carlton Hu MD Active CHERATUSSIN AC 100-10 MG/5ML ORAL SYRUP 1 tsp by mouth every 4 hours as needed for cough GUAIFENESIN-CODEINE 34673795881 No Longe r Active Hugo Restrepo MD Active AVELOX 400 MG ORAL TABLET 1 tab by mouth daily MOXIFLOXACIN HCL 71466810369 No Longer Active Marcy De La Rosa MD PhD Active TERBINAFINE HCL 250 MG ORAL TABLET 1 qDay T ERBINAFINE HCL 86104303088 No Longer Active Marcy De La Rosa MD PhD Active CHERATUSSIN AC 100-10 MG/5ML ORAL SYRUP 1 tsp by mouth every 4 hours as needed for cough GUAIFENESIN-CODEINE 17843970692 No Longe r Active Marcy De La Rosa MD PhD Active AVELOX 400 MG ORAL TABLET 1 tab by mouth daily MOXIFLOXACIN HCL 02128624182 No Longer Active Marcy De La Rosa MD PhD Active HYDROCODONE-ACETAMINOPHEN 5-325 MG ORAL TABLET 1 po q 6hr PRN co ugh HYDROCODONE-ACETAMINOPHEN 42856362025 No Longer Active Marcy De La Rosa MD PhD Active PREDNISONE 20 MG ORAL TABLET 2 tabs daily for 3 days, 1 tab daily for 3 days, 1/2 tab daily for 2 days PREDNISONE 84613158182 No Longer Active Carlton Hu MD Active CEFDINIR 300 MG ORAL CAPSULE by mouth twice a day 2011 CEFDINIR 10571741741 No Longer Active Carlton Hu MD Acti ve HYDROCHLOROTHIAZIDE 25 MG ORAL TABLET 1 TAB PO DAILY HYDROCHLOROTHIAZIDE 41755474352 Active ALFREDO Holly Ac tive ACETAMINOPHEN-CODEINE #3 300-30 MG ORAL TABLET 1 tablet po q 4-6 hrs prn pain ACETAMINOPHEN-CODEINE 06129137303 No Longer Active Ridge Bess DO Active ZITHROMAX 250 MG ORAL TABLET 2 po today, then 1 po q days 2-5 20 03/07/07 AZITHROMYCIN 14271657033 No Longer Active Carlton Hu MD Active CHERATUSSIN AC 100-10 MG/5ML ORAL SYRUP take 1 tsp po q4-6 h ours prn cough GUAIFENESIN-CODEINE 51943680482 No Longer Active Jayden Hu MD Active ACETAMINOPHEN-CODEINE #3 300-30 MG ORAL TABLET 1 PO Q 4-6 HR PRN PAIN ACETAMINOPHEN-CODEINE 05196641392 No Longer Active Da raimundo Hu MD Active LORTAB 7.5-500 MG/15ML ORAL ELIXIR 7.5 ml po q 4 hour prn cough HYDROCODONE-ACETAMINOPHEN 96221324368 No Longer Active Carlton Hu MD Active PREDNISONE 20 MG ORAL TABLET 1 po bid 3 days, then 1 po q day 3 days PREDNISONE 06979403959 No Longer Active Carlton Hu MD Active CEFDINIR 300 MG ORAL CAPSULE by mouth twice a day 2011 CEFDINIR 01768137000 No Longer Active Carlton Hu MD Acti ve CEFDINIR 300 MG ORAL CAPSULE by mouth twice a day 2010 CEFDINIR 09107822000 No Longer Active Carlton Hu MD Acti ve CEFDINIR 300 MG ORAL CAPSULE by mouth twice a day 2010 CEFDINIR 70128007269 No Longer Active Carlton Hu MD Acti ve TESSALON PERLES 100 MG ORAL CAPSULE 1 tablet by mouth 3 times daily as needed for cough BENZONATATE 48624151111 No Longer Active Carlton Hu MD Active CEFDINIR 300 MG ORAL CAPSULE by mouth twice a day 2010 CEFDINIR 13320814679 No Longer Active Carlton Hu MD Acti ve ZITHROMAX Z-REYNA 250 MG ORAL TABLET 2 today, then 1 daily for 4 d ays AZITHROMYCIN 05303133956 No Longer Active Hugo Restrepo MD Active TESSALON PERLES 100 MG ORAL CAPSULE 1 tablet by mouth 3 times daily as needed for cough TESSALON PERLES 100 MG ORAL CAPSULE 98259 7 BENZONATATE Inactive PREDNISONE 20 MG ORAL TABLET 1 po bid 3 days, then 1 po q day 3 days PREDNISONE 20 MG ORAL TABLET 747419 PREDNISONE Greer ctive LORTAB 7.5-500 MG/15ML ORAL [...] cough CHERATUSSIN AC 100-10 MG/5ML ORAL SYRUP 225549 GUAIFENESIN-CODEINE Inactive ACETAMINOPHEN-CODEINE #3 300-30 MG ORAL TABLET 1 tablet po q 4-6 hrs prn pain ACETAMINOPHEN-CODEINE #3 300-30 MG ORAL TABLET ACETAMINOPHEN-CODEINE Inactive HYDROCODONE-ACETAMINOPHEN 5-325 MG ORAL TABLET 1 po q 6hr PRN co ugh HYDROCODONE-ACETAMINOPHEN 5-325 MG ORAL TABLET 855955 HYDROCODONE-ACETAMINOPHEN Inactive AVELOX 400 MG ORAL TABLET 1 tab by mouth daily AVELOX 400 MG ORAL TABLET 864191 MOXIFLOXACIN HCL Inactive CHERATUSSIN AC 100-10 MG/5ML ORAL SYRUP 1 tsp by mouth every 4 hours as needed for cough CHERATUSSIN AC 100-10 MG/5ML ORAL SYRUP 9 80883 GUAIFENESIN-CODEINE Inactive TERBINAFINE HCL 250 MG ORAL TABLET 1 qDay 07/08 TERBINAFINE HCL 250 MG ORAL TABLET 928943 TERBINAFINE HCL Inactive CHERATUSSIN AC 100-10 MG/5ML ORAL SYRUP 1 tsp by mouth every 4 hours as needed for cough CHERATUSSIN AC 100-10 MG/5ML ORAL SYRUP 9 89093 GUAIFENESIN-CODEINE Inactive ACETAMINOPHEN-CODEINE #3 300-30 MG ORAL TABLET 1 PO Q 4-6 HRS CA N PAIN ACETAMINOPHEN-CODEINE #3 300-30 MG ORAL TABLET ACETAMINOPHEN-CODEINE Inactive CHERATUSSIN AC 100-10 MG/5ML ORAL SYRUP 1 tsp by mouth every 4 hours as needed for cough CHERATUSSIN AC 100-10 MG/5ML ORAL SYRUP 9 47065 GUAIFENESIN-CODEINE Inactive AUGMENTIN 875-125 MG ORAL TABLET 1 tab by mouth twice daily with food AUGMENTIN 875-125 MG ORAL TABLET 660802 AMOXICIL MADELINE-POT CLAVULANATE Inactive CHERATUSSIN AC 100-10 MG/5ML ORAL SYRUP take one tsp po Q 6h ours prn cough CHERATUSSIN AC 100-10 MG/5ML ORAL SYRUP 055200 GUAIFENESIN-CODEINE Inactive PROPRANOLOL HCL 60 MG ORAL TABLET 1 PO Q D PROPRANOLOL HCL 60 MG ORAL TABLET 656228 PROPRANOLOL HCL Inactive TOPAMAX 50 MG ORAL TABLET take 1 tab po BID for migraines. 07/02 TOPAMAX 50 MG ORAL TABLET 357985 TOPIRAMATE Inacti ve TOPAMAX 25 MG ORAL TABLET 1 qHS x 1 week, then 1 BID x 1 week, then 1 qAM and 2 qHS x 1 week, then 2 BID (migraine prevention) TOPAMAX 25 MG ORAL TABLET 022177 TOPIRAMATE Inactive LYRICA 75 MG ORAL CAPSULE TAKE 1 CAPSULE BY MOUTH TWICE DAILY LYRICA 75 MG ORAL CAPSULE PREGABALIN Inactive SYMBICORT 160-4.5 MCG/ACT INHALATION AEROSOL 2 puffs bid wit h rinse after SYMBICORT 160-4.5 MCG/ACT INHALATION AEROSOL BUDESONIDE- FORMOTEROL FUMARATE Inactive PROMETHAZINE-CODEINE 6.25-10 MG/5ML ORAL SYRUP 1 tsp b y mouth every 8 hours prn cough PROMETHAZINE-CODEINE 6.25-10 MG/ 5ML ORAL SYRUP 785017 PROMETHAZINE-CODEINE Inactive CYMBALTA 30 MG ORAL CAPSULE DELAYED RELEASE PARTICLES 1 cap by mouth daily CYMBALTA 30 MG ORAL CAPSULE DELAYED RELE ASE PARTICLES 873086 DULOXETINE HCL Inactive PREMARIN 0.625 MG ORAL TABLET TAKE 1 TAB BY MOUTH DAILY PREMARIN 0.625 MG ORAL TABLET ESTROGENS CONJUGATED Inactive CHERATUSSIN AC 100-10 MG/5ML ORAL SYRUP 1 tsp by mouth every 4 hours as needed for cough CHERATUSSIN AC 100-10 MG/5ML ORAL SYRUP 9 43017 GUAIFENESIN-CODEINE Inactive PROMETHAZINE-CODEINE 6.25-10 MG/5ML ORAL SYRUP 1 tsp b y mouth every 6 hours if needed for cough PROMETHAZINE-CODEINE 6.25-10 MG/5ML ORAL SYRUP 656276 PROMETHAZINE-CODEINE Inactive CHERATUSSIN AC 100-10 MG/5ML ORAL SYRUP 1 tsp by mouth every 4 hours as needed for cough CHERATUSSIN AC 100-10 MG/5ML ORAL SYRUP 9 15396 GUAIFENESIN-CODEINE Inactive FLUTICASONE PROPIONATE 50 MCG/ACT NASAL SUSPENSION 1 t o 2 sprays each nostril daily FLUTICASONE PROPIONATE 50 MCG/AC T NASAL SUSPENSION 6645059 FLUTICASONE PROPIONATE Inactive PREDNISONE 20 MG ORAL TABLET 3 tab PO qd x 2d, 2 tab P O qd x 2d, 1 tab PO qd x 2d, 1/2 tab PO qd x 2d PREDNISONE 20 MG ORAL TAB LET 761333 PREDNISONE Inactive LEVOFLOXACIN 500 MG ORAL TABLET 1 tab PO daily x 10 days LEVOFLOXACIN 500 MG ORAL TABLET 409315 LEVOFLOXACIN Inactive CYCLOBENZAPRINE HCL 10 MG ORAL TABLET 1 tablet by mouth BID prn had pain CYCLOBENZAPRINE HCL 10 MG ORAL TABLET 829114 CYCLOBENZAPRINE HCL Inactive ZOCOR 40 MG ORAL TABLET 1 tab by mouth daily 4 ZOCOR 40 MG ORAL TABLET 502363 SIMVASTATIN Inactive TUSSIONEX PENNKINETIC ER 10-8 MG/5ML [...] FLUTICASONE PROPIO EFE 50 MCG/ACT NASAL SUSPENSION 8592478 FLUTICASONE PROPIONATE Inactive TUSSIONEX PENNKINETIC ER 10-8 [...] three days PREDNISONE 20 MG ORAL TABLET 376327 PREDNIS ONE Inactive PROAIR HFA 108 (90 BASE) MCG/ACT INHALATION AEROSOL SO LUTION 2 puffs four times a day as needed PROAIR HFA 108 (90 B ASE) MCG/ACT INHALATION AEROSOL SOLUTION ALBUTEROL SULFATE Inactive PREDNISONE 20 MG ORAL TABLET two tabs by mouth today, then one tab by mouth days two and three and four PREDNISONE 20 MG ORAL TAB LET 657145 PREDNISONE Inactive TUSSIONEX PENNKINETIC ER 10-8 MG/5ML [...] bid 04/20 TOPAMAX 100 MG ORAL TABLET 239717 TOPIRAMATE Inactive ZITHROMAX Z-REYNA 250 MG ORAL TABLET 2 today, then 1 daily for 4 d ays ZITHROMAX Z-REYNA 250 MG ORAL TABLET 722116 AZITHROMYCIN Inactive CEFDINIR 300 MG ORAL CAPSULE [...] 20 03/07/07 ZITHROMAX 250 MG ORAL TABLET 862283 AZITHROMYCIN Greer ctive CEFDINIR 300 MG ORAL CAPSULE by mouth twice a day 2011 CEFDINIR 300 MG ORAL CAPSULE 418288 CEFDINIR Inactive PREDNISONE 20 MG ORAL TABLET 2 tabs daily for 3 days, 1 tab daily for 3 days, 1/2 tab daily for 2 days PREDNISONE 20 MG ORAL T ABLET 574316 PREDNISONE Inactive AVELOX 400 MG ORAL TABLET 1 tab by mouth daily AVELOX 400 MG ORAL TABLET 004623 MOXIFLOXACIN HCL Inactive AVELOX 400 MG ORAL TABLET 1 tab by mouth daily AVELOX 400 MG ORAL TABLET 968497 MOXIFLOXACIN HCL Inactive PREDNISONE 20 MG ORAL TABLET Take 3 tabs daily for 3 d ays, 2 tabs daily for 3 days, 1 tab daily for 3 days, 1/2 tab daily for 3 days 11/07 PREDNISONE 20 MG ORAL TABLET 200202 PREDNISONE Inactive LEVAQUIN 500 MG ORAL TABLET take one po QD LEVAQUIN 500 MG ORAL TABLET 482420 LEVOFLOXACIN Inactive AZITHROMYCIN 250 MG ORAL TABLET 2 po qd x 1 day, then 1 po q d x 4 days AZITHROMYCIN 250 MG ORAL TABLET 299419 AZITHROMY GIOVANNI Inactive MEDROL 4 MG ORAL TABLET THERAPY PACK 6 tabs on day 1, 5 tabs on day 2, 4 tabs on day 3, 3 tabs on day 4, 2 tabs on day 5, 1 tab on day 6 2013 MEDROL 4 MG ORAL TABLET THERAPY PACK 894633 METHYLPREDNISOLONE Greer ctive CHERATUSSIN AC 100-10 MG/5ML ORAL SYRUP 5ml po q6hr PRN Cough 20 13/04/14 CHERATUSSIN AC 100-10 MG/5ML ORAL SYRUP 116112 GUAIFENE SIN-CODEINE Inactive TRIAMCINOLONE ACETONIDE 0.1 % EXTERNAL CREAM apply three roger es daily prn rash TRIAMCINOLONE ACETONIDE 0.1 % EXTERNAL CREAM 101 4314 TRIAMCINOLONE ACETONIDE Inactive AZITHROMYCIN 250 MG ORAL TABLET 2 po qd x 1 day, then 1 po q d x 4 days AZITHROMYCIN 250 MG ORAL TABLET 100665 AZITHROMY GIOVANNI Inactive MEDROL 4 MG ORAL TABLET THERAPY PACK 6 pills x 1 day, then 5 pills x 1 day then 4 pills x 1 day, then 3 pills x 1 day, then 2 pills x 1 day, then 1 pill x 1 day, then stop MEDROL 4 MG ORAL TABLET THERAPY PACK 372462 METHYLPREDNISOLONE Inactive AMOXICILLIN 500 MG ORAL CAPSULE 1 tab by mouth 3 times daily x 10 days AMOXICILLIN 500 MG ORAL CAPSULE 321350 AMOXICILL IN Inactive AMOXICILLIN 500 MG ORAL CAPSULE 1 tab by mouth 3 times daily x 10 days AMOXICILLIN 500 MG ORAL CAPSULE 465440 AMOXICILL IN Inactive ZITHROMAX 250 MG ORAL TABLET 2 po today, then 1 po q days 2-5 20 12/08/14 ZITHROMAX 250 MG ORAL TABLET 714896 AZITHROMYCIN Greer ctive AUGMENTIN 875-125 MG ORAL TABLET 1 po BID x 10 days 20 13/01/20 AUGMENTIN 875-125 MG ORAL TABLET 350120 AMOXICILLIN-POT CLAVULANATE Inactive ZITHROMAX Z-REYNA 250 MG ORAL TABLET 2 today, then 1 daily for 4 d ays ZITHROMAX Z-REYNA 250 MG ORAL TABLET 889118 AZITHROMYCIN Inactive ZITHROMAX 250 MG ORAL TABLET 2 po today, then 1 po q days 2-5 20 14/03/21 ZITHROMAX 250 MG ORAL TABLET 429045 AZITHROMYCIN Greer ctive ZITHROMAX Z-REYNA 250 MG ORAL TABLET 2 today, then 1 daily for 4 d ays ZITHROMAX Z-REYNA 250 MG ORAL TABLET 666440 AZITHROMYCIN Inactive CEFDINIR 300 MG ORAL CAPSULE 1 po BID x 10 days 06/21 CEFDINIR 300 MG ORAL CAPSULE 224827 CEFDINIR Inactive ZITHROMAX 250 MG ORAL TABLET 2 po today, then 1 po q days 2-5 20 13/08/10 ZITHROMAX 250 MG ORAL TABLET 075417 AZITHROMYCIN Greer ctive LEVAQUIN 500 MG ORAL TABLET 1 tablet by mouth daily 13/09/24 LEVAQUIN 500 MG ORAL TABLET 862616 LEVOFLOXACIN Inactive SINGULAIR 10 MG ORAL TABLET 1 po qday for allergies 20 14/01/12 SINGULAIR 10 MG ORAL TABLET 029085 MONTELUKAST SODIUM Inactive AMOXICILLIN 500 MG ORAL CAPSULE 2 po BID x 10 days 201 09/29/08 AMOXICILLIN 500 MG ORAL CAPSULE 708953 AMOXICILLIN Inactive PREDNISONE 20 MG ORAL TABLET 2 tabs daily for 3 days, 1 tab daily for 3 days, 1/2 tab daily for 2 days PREDNISONE 20 MG ORAL T ABLET 771970 PREDNISONE Inactive ZITHROMAX Z-REYNA 250 MG ORAL TABLET 2 today, then 1 daily for 4 d ays ZITHROMAX Z-REYNA 250 MG ORAL TABLET 772016 AZITHROMYCIN Inactive PREDNISONE 20 MG ORAL TABLET 2 tabs daily for 3 days, 1 tab daily for 3 days, 1/2 tab daily for 2 days PREDNISONE 20 MG ORAL T ABLET 642802 PREDNISONE Inactive ZITHROMAX 250 MG ORAL TABLET 2 po today, then 1 po q days 2-5 20 14/09/04 ZITHROMAX 250 MG ORAL TABLET 104734 AZITHROMYCIN Greer ctive AMOXICILLIN 500 MG ORAL CAPSULE 1 cap by mouth three times a day AMOXICILLIN 500 MG ORAL CAPSULE 597893 AMOXICILLIN Inactive TERBINAFINE HCL 250 MG ORAL TABLET 1 qDay for nail fungus 7 TERBINAFINE HCL 250 MG ORAL TABLET 390086 TERBINAFINE HCL Inact nael AUGMENTIN 875-125 MG ORAL TABLET 1 po BID x 10 days 16/03/22 AUGMENTIN 875-125 MG ORAL TABLET 551441 AMOXICILLIN-POT CLAVULANATE Inactive PREDNISONE 20 MG ORAL TABLET 2 po qd x 5 days PREDNISONE 20 MG ORAL TABLET 306844 PREDNISONE Inactive AZITHROMYCIN 250 MG ORAL TABLET 2 po qd x 1 day, then 1 po q d x 4 days AZITHROMYCIN 250 MG ORAL TABLET 834019 AZITHROMY GIOVANNI Inactive PREDNISONE 50 MG ORAL TABLET Take 50 mg dialy for 6 day s 7 PREDNISONE 50 MG ORAL TABLET 790754 PREDNISONE Inactive AUGMENTIN 875-125 MG ORAL TABLET 1 po BID x 10 days 20 18/04/16 AUGMENTIN 875-125 MG ORAL TABLET 524973 AMOXICILLIN-POT CLAVULANATE Inactive PREDNISONE 20 MG ORAL TABLET Take 2 tabs day 1 and 2 and 1 t ab days 3 and 4 PREDNISONE 20 MG ORAL TABLET 623262 PREDNISONE Inactive Vital Signs Date Name Value [...] - Chem istry sodium, serum 139 mmol/L 133-034 6690/03/19 potassium, serum 3.6 mmol/L 3.5-5.2 chloride, serum 100 mmol/L 98-107 carbon dioxide, venous blood 30.3 mmol/L 21.0-32 .0 blood glucose 101 mg/dL 65-110 calcium, serum 9.4 mg/dL 8.5-10.1 urea nitrogen, blood 10 mg/dL 7-18 creatinine, serum 0.96 mg/dL 0.60-1.30 sodium, serum 139 mmol/L 909-044 3240/10/12 potassium, serum 3.8 mmol/L 3.5-5.2 chloride, serum 102 mmol/L 98-107 carbon dioxide, venous blood 29.4 mmol/L 21.0-32 .0 blood glucose 103 mg/dL 65-95 calcium, serum 8.8 mg/dL 8.5-10.1 urea nitrogen, blood 10 mg/dL 7-18 creatinine, serum 0.97 mg/dL 0.60-1.30 Estimated Glomerular Filtration Rate (calc) 62 (?) mL/min/1.73m2 = OR > 60 mL/min Encounters Code Encounter Date Provider Facility CPT-45564 Level 3 Est. Patient 09:46:49 SPOOL SALVAGER David lion [facility][note 3] CPT-75141 [id number] Vst-Est Level III 11:12:16 CDT Yanet Bess DO [facility] CPT-32268 Level 3 Est. Patient 11:34:49 SPOOL SALVAGER Perez Mora MD [facility] CPT-37687 Level 4 Est. Patient 09:51:32 SPOOL SALVAGER Carlton rich MD [facility] CPT-22363 Level 3 Est. Patient 10:26:00 SPOOL SALVAGER Elise stephenson [facility][note 3] CPT-01173 Level 3 Est. Patient 13:35:41 SPOOL SALVAGER Carlton rich MD [facility] CPT-48694 Level 3 Est. Patient 10:03:52 SPOOL SALVAGER Carlton rich MD [facility] CPT-14330 Level 3 Est. Patient 12:17:50 CDT Hugo Restrepo MD [facility] CPT-71853 Level 3 Est. Patient 13:42:38 CDT Elise stephenson [facility][note 3] CPT-50793 Level 3 Est. Patient 13:23:51 CDT Diya cobian [facility]-58154 Level 3 Est. Patient 14:22:19 SPOOL SALVAGER Diya cobian [facility][note 3] CPT-42870 Level 3 Est. Patient 10:11:46 CDT Carlton rich MD [facility] CPT-34449 Level 3 Est. Patient 17:29:43 CDT Elise Are ll MECHANICAL DEVELOPMENT ENGINEER [facility] CPT-43655 Level 3 Est. Patient 11:58:06 CDT Elise Are ll MECHANICAL DEVELOPMENT ENGINEER [facility] CPT-90766 Level 4 Est. Patient 14:36:51 CDT Carlton rich MD [facility] CPT-27686 Level 3 Est. Patient 18:16:00 SPOOL SALVAGER Blaine Freeman [facility] CPT-20632 Level 3 Est. Patient 09:45:49 SPOOL SALVAGER Carlton rich MD [facility] CPT-01663 Level 3 Est. Patient 13:19:20 CDT Carlton rich MD [facility] CPT-23510 Level 3 Est. Patient 13:06:43 CDT Ridge tam DO [facility] CPT-58867 Level 3 Est. Patient 10:03:07 CDT Perez Mora MD [facility] CPT-28673 Level 3 Est. Patient 19:50:35 SPOOL SALVAGER Carlton rich MD [facility] CPT-08342 Level 4 Est. Patient 18:05:01 SPOOL SALVAGER Carlton rich MD [facility] CPT-11229 Level 3 Est. Patient 10:45:55 SPOOL SALVAGER Hugo Restrepo MD [facility] CPT-09643 Level 3 Est. Patient 14:12:49 CDT Griffin lincoln [facility] CPT-52282 Level 3 Est. Patient 17:37:24 CDT Carlton rich MD [facility]-51803 Level 3 Est. Patient 16:51:54 CDT Carlton rich MD [facility] CPT-13116 Level 3 Est. Patient 12:18:11 CDT Hugo Restrepo MD [facility] CPT-90478 Level 3 Est. Patient 11:30:25 CDT Marcy crisostomo MD PhD [facility] CPT-41321 Level 3 Est. Patient 12:00:47 SPOOL SALVAGER Carlton rich MD [facility] CPT-80080 Level 3 Est. Patient 16:31:06 SPOOL SALVAGER Carlton rich MD [facility] CPT-32967 Level 3 Est. Patient 16:23:24 SPOOL SALVAGER Ridge tam [facility] CPT-56649 Level 3 Est. Patient 12:34:12 CDT Carlton rich MD [facility] CPT-41698 Level 2 Est. Patient 15:43:33 CDT Robi armstrong MD [facility] CPT-36135 Level 4 Est. Patient 14:04:44 CDT Carlton rich MD [facility] CPT-19367 Level 3 Est. Patient 05:47:59 CDT Ridge tam [facility] CPT-13217 Level 3 Est. Patient 13:12:53 SPOOL SALVAGER Carlton rich MD [facility] CPT-42751 Level 3 Est. Patient 14:26:53 CDT Hugo Restrepo MD [facility] Procedures Code Procedure Name Date Entry Date Standard Desc ription CPT-000 Give Appropriate Flu Vaccine 14:14:31 CDT 2 CPT-J1040 Depo Medrol 80 mg (Methyl Prednisolone A cetate) 10:42:44 CDT CPT-J1100 Decadron 8mg (Dexamethasone) 10:42:44 CDT 2 CPT-J0696 Rocephin 1gm Inj Solr 14:32:13 CDT CPT-J1020 Depo Medrol 60 mg (Methyl Prednisolone A cetate) 14:32:13 CDT CPT-J1100 Decadron 6mg (Dexamethasone) 14:32:13 CDT 2 CPT-76285 Hip bilat min 2V w AP pelvis 13:16:20 CDT 2 CPT-67340 Pelvis only 13:07:33 CDT CPT-15946 Spec Collection and Handling Fee 11:25:12 C DT CPT-09033 Fluzone Quadrivalent Intramuscular Suspe nsion 0.5 ML 14:31:55 CDT CPT-88975 Abx/Therapy Injection 13:28:47 SPOOL SALVAGER CPT-J2930 Solu Medrol 125 mg (Methyl Prednisolone Sodium Succinate) 12:00:47 SPOOL SALVAGER CPT-17120 Venipuncture Draw Fee 11:33:31 CDT CPT-06276 EKG Trac and Interp 11:21:09 CDT CPT-95846 Chest 2V Frontal and Lat 11:21:09 CDT 12/15 CPT-19528 Venipuncture Draw Fee 08:02:34 CDT CPT-56917 Chest 2V Frontal and Lat 05:47:59 CDT 06/05
--- OUTSIDE RECORDS SUMMARY | 2019-10-08 09:17 | XMS REPORT | Clinical Summary ---
Author Author Caitlin, Juliana Martinez Organization [employer] [facility] Address Unknown Phone Unavailable [...] URI 465.9 Inactive Ridge Bess DO Ac [place] upper respiratory infections of unspecified site Body [...] po q12hr PRN Cough HYDROCOD POLST-CHLORPHEN POLST 34029122707 Active David Marianne MANAGEMENT COORDINATOR Active PREDNISONE 20 MG ORAL TABLET Take 2 tabs day 1 and 2 and 1 t ab days 3 and 4 PREDNISONE 36377545064 Active David Marianne MANAGEMENT COORDINATOR Active DOXYCYCLINE HYCLATE 100 MG ORAL CAPSULE 1 cap by mouth twice latasha ly DOXYCYCLINE HYCLATE 69564238085 Active David Marianne MANAGEMENT COORDINATOR Active TOPAMAX 100 MG ORAL TABLET Take 1 tablet po bid TOPIRAMATE 50547109586 No Longer Active David Marianne MANAGEMENT COORDINATOR Active TUSSIONEX PENNKINETIC ER 10-8 MG/5ML ORAL SUSPENSION E XTENDED RELEASE 5ml po q12hr PRN Cough HYDROCOD POLST-CHLORPHEN POLST 5 4776187706 No Longer Active David Marianne MANAGEMENT COORDINATOR Active AUGMENTIN 875-125 MG ORAL TABLET 1 po BID x 10 days 20 18/04/16 AMOXICILLIN-POT CLAVULANATE 83449201016 No Longer Active David Marianne MANAGEMENT COORDINATOR Active PREDNISONE 50 MG ORAL TABLET Take 50 mg dialy for 6 day s 7 PREDNISONE 24997599624 No Longer Active David Lopes APRN Active TUSSIONEX PENNKINETIC ER 10-8 MG/5ML ORAL SUSPENSION E XTENDED RELEASE 5ml po q12hr PRN Cough HYDROCOD POLST-CHLORPHEN POLST 5 6755239689 No Longer Active Cherelle Torres RN Active PREDNISONE 20 MG ORAL TABLET two tabs by mouth today, then one tab by mouth days two and three and four PREDNISONE 52831131467 No Lo nger Active Cherelle Torres RN Active AZITHROMYCIN 250 MG ORAL TABLET 2 po qd x 1 day, then 1 po q d x 4 days AZITHROMYCIN 97274646104 No Longer Active Ridge Bess DO Active PREDNISONE 20 MG ORAL TABLET 2 po qd x 5 days P REDNISONE 76573803619 No Longer Active Perez Mora MD Active PROAIR HFA 108 (90 BASE) MCG/ACT INHALATION AEROSOL SO LUTION 2 puffs four times a day as needed ALBUTEROL SULFATE 53254632957 No Long er Active Becky AGUILARA Active ASPIRIN 81 MG ORAL TABLET 1 po qd ASPIRIN 40747798477 Active Carlton Hu MD Active PREDNISONE 20 MG ORAL TABLET 1 tab twice daily for 3 d ay, then one daily for three days PREDNISONE 71086301020 No Longer Active Carlton Hu MD Active AUGMENTIN 875-125 MG ORAL TABLET 1 po BID x 10 days 20 16/03/22 AMOXICILLIN-POT CLAVULANATE 52394686878 No Longer Active Elise Garcia APRN Active TERBINAFINE HCL 250 MG ORAL TABLET 1 qDay for nail fungus 7 TERBINAFINE HCL 48575067569 No Longer Active Carlton Hu MD A ctive AMOXICILLIN 500 MG ORAL CAPSULE 1 cap by mouth three times a day AMOXICILLIN 81021222897 No Longer Active Carlton Hu MD Active ELMIRON 100 MG ORAL CAPSULE 2 tablets in the am and 1 tablet at hs PENTOSAN POLYSULFATE SODIUM 84747799144 No Longer Active Robert Hu MD Active MUCINEX D 60-600 MG ORAL TABLET EXTENDED RELEASE 12 HOUR 1 t ab po q am PSEUDOEPHEDRINE-GUAIFENESIN 56868077032 No Longer Act nael Carlton Hu MD Active MUCINEX DM MAXIMUM STRENGTH 60-1200 MG ORAL TABLET EXT ENDED RELEASE 12 HOUR 1 tab po q am DEXTROMETHORPHAN-GUAIFENESIN 80665123282 No Longer Active Carlton Hu MD Active TUSSIONEX PENNKINETIC ER 10-8 MG/5ML ORAL SUSPENSION E XTENDED RELEASE 5ml po q12hr PRN Cough HYDROCOD POLST-CHLORPHEN POLST 5 1678072654 No Longer Active Carlton Hu MD Active POTASSIUM CHLORIDE ER 20 MEQ ORAL TABLET EXTENDED RELE ASE Take 1 by mouth 4 times daily for 7 days POTASSIUM CHLORIDE 61514836841 No Longer Active Carlton Hu MD Active ZITHROMAX 250 MG ORAL TABLET 2 po today, then 1 po q days 2-5 14/09/04 AZITHROMYCIN 27142172237 No Longer Active Elise Garcia APRN Active TUSSIONEX PENNKINETIC ER 10-8 MG/5ML ORAL SUSPENSION E XTENDED RELEASE 5 ml twice a day as needed for cough HYDROCOD POLST-CHLORPH EN POLST 84847633585 No Longer Active Elise Garcia APRN Active MONTELUKAST SODIUM 10 MG ORAL TABLET 1 po daily for Allergy MONTELUKAST SODIUM 65740803578 Active Carlton Hu MD Ac tive TUSSIONEX PENNKINETIC ER 10-8 MG/5ML ORAL SUSPENSION E XTENDED RELEASE 5ml po q12hr PRN Cough HYDROCOD POLST-CHLORPHEN POLST 5 5932269504 No Longer Active Hugo Restrepo MD Active GABAPENTIN 100 MG ORAL CAPSULE 1 po BID for fibromyalgia GABAPENTIN 41730908530 Active Carlton Hu MD Active LYRICA 100 MG ORAL CAPSULE Take 1 tab po BID for fibromyalgia 20 11/08/21 PREGABALIN 98459364851 No Longer Active Elise Garcia APRN A ctive PREDNISONE 20 MG ORAL TABLET 2 tabs daily for 3 days, 1 tab daily for 3 days, 1/2 tab daily for 2 days PREDNISONE 91121486035 No Longer Active Jillina Frakerriel MANAGEMENT COORDINATOR Active TUSSIONEX PENNKINETIC ER 10-8 MG/5ML ORAL SUSPENSION E XTENDED RELEASE 5 mL PO q 12 hrs PRN cough HYDROCOD POLST-CHLORPHEN POLST 061691 77496 No Longer Active Jillina Frazell MANAGEMENT COORDINATOR Active FLUTICASONE PROPIONATE 50 MCG/ACT NASAL SUSPENSION 2 s prays each nostril daily until bottle is empty FLUTICASONE PROPIONATE 368062405 99 No Longer Active Jillina Frazell MANAGEMENT COORDINATOR Active ASMANEX 60 METERED DOSES 220 MCG/INH INHALATION AEROSO L POWDER BREATH ACTIVATED 1 puff bid with rinse after MOMETASONE FUROATE 5350874 4102 No Longer Active Jillina Frakerriel MANAGEMENT COORDINATOR Active ZITHROMAX Z-REYNA 250 MG ORAL TABLET 2 today, then 1 daily for 4 d ays AZITHROMYCIN 98430344445 No Longer Active Elise Garcia MANAGEMENT COORDINATOR Active TUSSIONEX PENNKINETIC ER 10-8 MG/5ML ORAL SUSPENSION E XTENDED RELEASE 5ml po q12hr PRN Cough HYDROCOD POLST-CHLORPHEN POLST 5 1601047472 No Longer Active Elise Garcia MANAGEMENT COORDINATOR Active PREDNISONE 20 MG ORAL TABLET 2 tabs daily for 3 days, 1 tab daily for 3 days, 1/2 tab daily for 2 days PREDNISONE 80761910010 No Longer Active Jillina Frazell MANAGEMENT COORDINATOR Active AMOXICILLIN 500 MG ORAL CAPSULE 2 po BID x 10 days 201 09/29/08 AMOXICILLIN 38981552055 No Longer Active Jillina Frazell MANAGEMENT COORDINATOR Act nael SINGULAIR 10 MG ORAL TABLET 1 po qday for allergies 20 14/01/12 MONTELUKAST SODIUM 04694711307 No Longer Active Carlton Hu MD Active LEVAQUIN 500 MG ORAL TABLET 1 tablet by mouth daily 20 13/09/24 LEVOFLOXACIN 26518937909 No Longer Active Carlton Hu MD Acti ve FLUTICASONE PROPIONATE 50 MCG/ACT NASAL SUSPENSION 2 s prays each nostril daily for 2 weeks, then 1 spray each nostril daily. FLUTICASONE PROPIONATE 08117225564 Active ALFREDO Holly Active ZITHROMAX 250 MG ORAL TABLET 2 po today, then 1 po q days 2-5 20 13/08/10 AZITHROMYCIN 38714079551 No Longer Active Elise Garcia APRN Active XANAX 0.5 MG ORAL TABLET one tablet by mouth daily prn anxiety 2015 ALPRAZOLAM 80705388016 Active ALFREDO Holly Active CYMBALTA 30 MG ORAL CAPSULE DELAYED RELEASE PARTICLES 1 cap by mouth daily for depression DULOXETINE HCL 15935528662 Active ALFREDO Holly Active CEFDINIR 300 MG ORAL CAPSULE 1 po BID x 10 days CEFDINIR 44569968139 No Longer Active Carlton Hu MD Active ZOCOR 40 MG ORAL TABLET 1 tab by mouth daily SI MVASTATIN 15609203471 No Longer Active Carlton Hu MD Active CYCLOBENZAPRINE HCL 10 MG ORAL TABLET 1 tablet by mouth BID prn had pain CYCLOBENZAPRINE HCL 70596060558 No Longer Active Jayden Hu MD Active LEVOFLOXACIN 500 MG ORAL TABLET 1 tab PO daily x 10 days LEVOFLOXACIN 59380277155 No Longer Active Carlton Hu MD Acti ve PREDNISONE 20 MG ORAL TABLET 3 tab PO qd x 2d, 2 tab P O qd x 2d, 1 tab PO qd x 2d, 1/2 tab PO qd x 2d PREDNISONE 15261161337 No Lo nger Active Carlton Hu MD Active FLUTICASONE PROPIONATE 50 MCG/ACT NASAL SUSPENSION 1 t o 2 sprays each nostril daily FLUTICASONE PROPIONATE 71229368934 No Longer Ac tive Blaine HERNANDEZ Active CHERATUSSIN AC 100-10 MG/5ML ORAL SYRUP 1 tsp by mouth every 4 hours as needed for cough GUAIFENESIN-CODEINE 38361442935 No Longe r Active Blaine HERNANDEZ Active PROMETHAZINE-CODEINE 6.25-10 MG/5ML ORAL SYRUP 1 tsp b y mouth every 6 hours if needed for cough PROMETHAZINE-CODEINE 36690519737 No Longer Active Blaine HERNANDEZ Active CHERATUSSIN AC 100-10 MG/5ML ORAL SYRUP 1 tsp by mouth every 4 hours as needed for cough GUAIFENESIN-CODEINE 89350843824 No Longe r Active Blaine HERNANDEZ Active ZITHROMAX Z-REYNA 250 MG ORAL TABLET 2 today, then 1 daily for 4 d ays AZITHROMYCIN 40183684550 No Longer Active Columba Raida Act nael ZITHROMAX 250 MG ORAL TABLET 2 po today, then 1 po q days 2-5 20 14/03/21 AZITHROMYCIN 36159625784 No Longer Active Carlton Hu MD Active ZITHROMAX Z-REYNA 250 MG ORAL TABLET 2 today, then 1 daily for 4 d ays AZITHROMYCIN 55900720258 No Longer Active Columba Raida Act nael AUGMENTIN 875-125 MG ORAL TABLET 1 po BID x 10 days 13/01/20 AMOXICILLIN-POT CLAVULANATE 32679580132 No Longer Active Diya De Guzman APRN Active ZITHROMAX 250 MG ORAL TABLET 2 po today, then 1 po q days 2-5 20 12/08/14 AZITHROMYCIN 95014709989 No Longer Active Carlton Hu MD Active TRAMADOL HCL 50 MG ORAL TABLET 1 po tid with ES Tylenol TRAMADOL HCL 63950244223 Active Adrienne Galvez LPN Active PREMARIN 0.625 MG ORAL TABLET TAKE 1 TAB BY MOUTH DAILY ESTROGENS CONJUGATED 23076730932 No Longer Active Ridge Bess DO A ctive CYMBALTA 30 MG ORAL CAPSULE DELAYED RELEASE PARTICLES 1 cap by mouth daily DULOXETINE HCL 61878535380 No Longer Active Ridge Ya ee DO Active AMOXICILLIN 500 MG ORAL CAPSULE 1 tab by mouth 3 times daily x 10 days AMOXICILLIN 12252794131 No Longer Active Carlton bustamante MD Active AMOXICILLIN 500 MG ORAL CAPSULE 1 tab by mouth 3 times daily x 10 days AMOXICILLIN 01750488947 No Longer Active Carlton bustamante MD Active PROMETHAZINE-CODEINE 6.25-10 MG/5ML ORAL SYRUP 1 tsp b y mouth every 8 hours prn cough PROMETHAZINE-CODEINE 96078561866 No Longer Acti ve Carlton Hu MD Active MEDROL 4 MG ORAL TABLET THERAPY PACK 6 pills x 1 day, then 5 pills x 1 day then 4 pills x 1 day, then 3 pills x 1 day, then 2 pills x 1 day, then 1 pill x 1 day, then stop METHYLPREDNISOLONE 39443450903 No Long er Active Perez Mora MD Active AZITHROMYCIN 250 MG ORAL TABLET 2 po qd x 1 day, then 1 po q d x 4 days AZITHROMYCIN 85856450143 No Longer Active Perez Ambriz MD Active SYMBICORT 160-4.5 MCG/ACT INHALATION AEROSOL 2 puffs bid wit h rinse after BUDESONIDE-FORMOTEROL FUMARATE 32905233023 N o Longer Active Perez Mora MD Active LYRICA 75 MG ORAL CAPSULE TAKE 1 CAPSULE BY MOUTH TWICE DAILY PREGABALIN 48245816602 No Longer Active Carlton Hu MD Acti ve TOPAMAX 25 MG ORAL TABLET 1 qHS x 1 week, then 1 BID x 1 week, then 1 qAM and 2 qHS x 1 week, then 2 BID (migraine prevention) T OPIRAMATE 56113707429 No Longer Active Jerica FUENTES Active TOPAMAX 50 MG ORAL TABLET take 1 tab po BID for migraines. 07/02 TOPIRAMATE 86633789815 No Longer Active Jerica FUENTES Active TRIAMCINOLONE ACETONIDE 0.1 % EXTERNAL CREAM apply three roger es daily prn rash TRIAMCINOLONE ACETONIDE 04092670916 No Longer Active Carlton Hu MD Active PAXIL 40 MG ORAL TABLET take 1 tab po qday for depression 0 PAROXETINE HCL 55953646732 Active ALFREDO Holly Active CHERATUSSIN AC 100-10 MG/5ML ORAL SYRUP 5ml po q6hr PRN Cough 20 13/04/14 GUAIFENESIN-CODEINE 16906330471 No Longer Active Carlton Hu MD Active MEDROL 4 MG ORAL TABLET THERAPY PACK 6 tabs on day 1, 5 tabs on day 2, 4 tabs on day 3, 3 tabs on day 4, 2 tabs on day 5, 1 tab on day 6 2013 METHYLPREDNISOLONE 71672834822 No Longer Active Perez Mora MD Active AZITHROMYCIN 250 MG ORAL TABLET 2 po qd x 1 day, then 1 po q d x 4 days AZITHROMYCIN 79564332705 No Longer Active Perez Ambriz MD Active PROPRANOLOL HCL 60 MG ORAL TABLET 1 PO Q D PROPRANOLOL HCL 74298470370 No Longer Active Perez Mora MD Activ e CHERATUSSIN AC 100-10 MG/5ML ORAL SYRUP take one tsp po Q 6h ours prn cough GUAIFENESIN-CODEINE 71837978584 No Longer Active Zia Mora MD Active AUGMENTIN 875-125 MG ORAL TABLET 1 tab by mouth twice daily with food AMOXICILLIN-POT CLAVULANATE 33012871890 No Longer Act nael Perez Mora MD Active CHERATUSSIN AC 100-10 MG/5ML ORAL SYRUP 1 tsp by mouth every 4 hours as needed for cough GUAIFENESIN-CODEINE 98647088935 No Longe r Active Hugo Restrepo MD Active ACETAMINOPHEN-CODEINE #3 300-30 MG ORAL TABLET 1 PO Q 4-6 HRS PA N PAIN ACETAMINOPHEN-CODEINE 42108716692 No Longer Active Hugo Restrepo MD Active LEVAQUIN 500 MG ORAL TABLET take one po QD LEVO FLOXACIN 03785982616 No Longer Active Griffin HERNANDEZ Active PREDNISONE 20 MG ORAL TABLET Take 3 tabs daily for 3 d ays, 2 tabs daily for 3 days, 1 tab daily for 3 days, 1/2 tab daily for 3 days 11/07 PREDNISONE 56213934164 No Longer Active Carlton Hu MD Acti ve AVELOX 400 MG ORAL TABLET 1 tab by mouth daily MOXIFLOXACIN HCL 57884155098 No Longer Active Carlton Hu MD Active CHERATUSSIN AC 100-10 MG/5ML ORAL SYRUP 1 tsp by mouth every 4 hours as needed for cough GUAIFENESIN-CODEINE 38832689220 No Longe r Active Hugo Restrepo MD Active AVELOX 400 MG ORAL TABLET 1 tab by mouth daily MOXIFLOXACIN HCL 22714920364 No Longer Active Marcy De La Rosa MD PhD Active TERBINAFINE HCL 250 MG ORAL TABLET 1 qDay T ERBINAFINE HCL 62816017304 No Longer Active Marcy De La Rosa MD PhD Active CHERATUSSIN AC 100-10 MG/5ML ORAL SYRUP 1 tsp by mouth every 4 hours as needed for cough GUAIFENESIN-CODEINE 41941377735 No Longe r Active Marcy De La Rosa MD PhD Active AVELOX 400 MG ORAL TABLET 1 tab by mouth daily MOXIFLOXACIN HCL 19914843558 No Longer Active Marcy De La Rosa MD PhD Active HYDROCODONE-ACETAMINOPHEN 5-325 MG ORAL TABLET 1 po q 6hr PRN co ugh HYDROCODONE-ACETAMINOPHEN 81826215658 No Longer Active Marcy De La Rosa MD PhD Active PREDNISONE 20 MG ORAL TABLET 2 tabs daily for 3 days, 1 tab daily for 3 days, 1/2 tab daily for 2 days PREDNISONE 36192178898 No Longer Active Carlton Hu MD Active CEFDINIR 300 MG ORAL CAPSULE by mouth twice a day 2011 CEFDINIR 27094976529 No Longer Active Carlton Hu MD Acti ve HYDROCHLOROTHIAZIDE 25 MG ORAL TABLET 1 TAB PO DAILY HYDROCHLOROTHIAZIDE 25551014068 Active ALFREDO Holly Ac tive ACETAMINOPHEN-CODEINE #3 300-30 MG ORAL TABLET 1 tablet po q 4-6 hrs prn pain ACETAMINOPHEN-CODEINE 39633027439 No Longer Active Ridge Bess DO Active ZITHROMAX 250 MG ORAL TABLET 2 po today, then 1 po q days 2-5 20 03/07/07 AZITHROMYCIN 75945379840 No Longer Active Carlton Hu MD Active CHERATUSSIN AC 100-10 MG/5ML ORAL SYRUP take 1 tsp po q4-6 h ours prn cough GUAIFENESIN-CODEINE 07532272977 No Longer Active Jayden Hu MD Active ACETAMINOPHEN-CODEINE #3 300-30 MG ORAL TABLET 1 PO Q 4-6 HR PRN PAIN ACETAMINOPHEN-CODEINE 94210008092 No Longer Active Da raimundo Hu MD Active LORTAB 7.5-500 MG/15ML ORAL ELIXIR 7.5 ml po q 4 hour prn cough HYDROCODONE-ACETAMINOPHEN 60718525836 No Longer Active Carlton Hu MD Active PREDNISONE 20 MG ORAL TABLET 1 po bid 3 days, then 1 po q day 3 days PREDNISONE 89908451373 No Longer Active Carlton Hu MD Active CEFDINIR 300 MG ORAL CAPSULE by mouth twice a day 2011 CEFDINIR 76841720366 No Longer Active Carlton Hu MD Acti ve CEFDINIR 300 MG ORAL CAPSULE by mouth twice a day 2010 CEFDINIR 55954777360 No Longer Active Carlton Hu MD Acti ve CEFDINIR 300 MG ORAL CAPSULE by mouth twice a day 2010 CEFDINIR 39018671678 No Longer Active Carlton Hu MD Acti ve TESSALON PERLES 100 MG ORAL CAPSULE 1 tablet by mouth 3 times daily as needed for cough BENZONATATE 04033261774 No Longer Active Carlton Hu MD Active CEFDINIR 300 MG ORAL CAPSULE by mouth twice a day 2010 CEFDINIR 29962608861 No Longer Active Carlton Hu MD Acti ve ZITHROMAX Z-REYNA 250 MG ORAL TABLET 2 today, then 1 daily for 4 d ays AZITHROMYCIN 32076705422 No Longer Active Hugo Restrepo MD Active TESSALON PERLES 100 MG ORAL CAPSULE 1 tablet by mouth 3 times daily as needed for cough TESSALON PERLES 100 MG ORAL CAPSULE 82163 7 BENZONATATE Inactive PREDNISONE 20 MG ORAL TABLET 1 po bid 3 days, then 1 po q day 3 days PREDNISONE 20 MG ORAL TABLET 628450 PREDNISONE [place] ctive LORTAB 7.5-500 MG/15ML ORAL ELIXIR [...] cough CHERATUSSIN AC 100-10 MG/5ML ORAL SYRUP 794132 GUAIFENESIN-CODEINE Inactive ACETAMINOPHEN-CODEINE #3 300-30 MG ORAL TABLET 1 tablet po q 4-6 hrs prn pain ACETAMINOPHEN-CODEINE #3 300-30 MG ORAL TABLET ACETAMINOPHEN-CODEINE Inactive HYDROCODONE-ACETAMINOPHEN 5-325 MG ORAL TABLET 1 po q 6hr PRN co ugh HYDROCODONE-ACETAMINOPHEN 5-325 MG ORAL TABLET 979297 HYDROCODONE-ACETAMINOPHEN Inactive AVELOX 400 MG ORAL TABLET 1 tab by mouth daily AVELOX 400 MG ORAL TABLET 056452 MOXIFLOXACIN HCL Inactive CHERATUSSIN AC 100-10 MG/5ML ORAL SYRUP 1 tsp by mouth every 4 hours as needed for cough CHERATUSSIN AC 100-10 MG/5ML ORAL SYRUP 9 17004 GUAIFENESIN-CODEINE Inactive TERBINAFINE HCL 250 MG ORAL TABLET 1 qDay 07/08 TERBINAFINE HCL 250 MG ORAL TABLET 443240 TERBINAFINE HCL Inactive CHERATUSSIN AC 100-10 MG/5ML ORAL SYRUP 1 tsp by mouth every 4 hours as needed for cough CHERATUSSIN AC 100-10 MG/5ML ORAL SYRUP 9 86907 GUAIFENESIN-CODEINE Inactive ACETAMINOPHEN-CODEINE #3 300-30 MG ORAL TABLET 1 PO Q 4-6 HRS PA N PAIN ACETAMINOPHEN-CODEINE #3 300-30 MG ORAL TABLET ACETAMINOPHEN-CODEINE Inactive CHERATUSSIN AC 100-10 MG/5ML ORAL SYRUP 1 tsp by mouth every 4 hours as needed for cough CHERATUSSIN AC 100-10 MG/5ML ORAL SYRUP 9 40558 GUAIFENESIN-CODEINE Inactive AUGMENTIN 875-125 MG ORAL TABLET 1 tab by mouth twice daily with food AUGMENTIN 875-125 MG ORAL TABLET 442059 AMOXICIL MADELINE-POT CLAVULANATE Inactive CHERATUSSIN AC 100-10 MG/5ML ORAL SYRUP take one tsp po Q 6h ours prn cough CHERATUSSIN AC 100-10 MG/5ML ORAL SYRUP 830782 GUAIFENESIN-CODEINE Inactive PROPRANOLOL HCL 60 MG ORAL TABLET 1 PO Q D PROPRANOLOL HCL 60 MG ORAL TABLET 118511 PROPRANOLOL HCL Inactive TOPAMAX 50 MG ORAL TABLET take 1 tab po BID for migraines. 07/02 TOPAMAX 50 MG ORAL TABLET 552066 TOPIRAMATE Inacti ve TOPAMAX 25 MG ORAL TABLET 1 qHS x 1 week, then 1 BID x 1 week, then 1 qAM and 2 qHS x 1 week, then 2 BID (migraine prevention) TOPAMAX 25 MG ORAL TABLET 903127 TOPIRAMATE Inactive LYRICA 75 MG ORAL CAPSULE TAKE 1 CAPSULE BY MOUTH TWICE DAILY LYRICA 75 MG ORAL CAPSULE PREGABALIN Inactive SYMBICORT 160-4.5 MCG/ACT INHALATION AEROSOL 2 puffs bid wit h rinse after SYMBICORT 160-4.5 MCG/ACT INHALATION AEROSOL BUDESONIDE- FORMOTEROL FUMARATE Inactive PROMETHAZINE-CODEINE 6.25-10 MG/5ML ORAL SYRUP 1 tsp b y mouth every 8 hours prn cough PROMETHAZINE-CODEINE 6.25-10 MG/ 5ML ORAL SYRUP 871028 PROMETHAZINE-CODEINE Inactive CYMBALTA 30 MG ORAL CAPSULE DELAYED RELEASE PARTICLES 1 cap by mouth daily CYMBALTA 30 MG ORAL CAPSULE DELAYED RELE ASE PARTICLES 804556 DULOXETINE HCL Inactive PREMARIN 0.625 MG ORAL TABLET TAKE 1 TAB BY MOUTH DAILY PREMARIN 0.625 MG ORAL TABLET ESTROGENS CONJUGATED Inactive CHERATUSSIN AC 100-10 MG/5ML ORAL SYRUP 1 tsp by mouth every 4 hours as needed for cough CHERATUSSIN AC 100-10 MG/5ML ORAL SYRUP 9 81458 GUAIFENESIN-CODEINE Inactive PROMETHAZINE-CODEINE 6.25-10 MG/5ML ORAL SYRUP 1 tsp b y mouth every 6 hours if needed for cough PROMETHAZINE-CODEINE 6.25-10 MG/5ML ORAL SYRUP 813124 PROMETHAZINE-CODEINE Inactive CHERATUSSIN AC 100-10 MG/5ML ORAL SYRUP 1 tsp by mouth every 4 hours as needed for cough CHERATUSSIN AC 100-10 MG/5ML ORAL SYRUP 9 96606 GUAIFENESIN-CODEINE Inactive FLUTICASONE PROPIONATE 50 MCG/ACT NASAL SUSPENSION 1 t o 2 sprays each nostril daily FLUTICASONE PROPIONATE 50 MCG/AC T NASAL SUSPENSION 5296166 FLUTICASONE PROPIONATE Inactive PREDNISONE 20 MG ORAL TABLET 3 tab PO qd x 2d, 2 tab P O qd x 2d, 1 tab PO qd x 2d, 1/2 tab PO qd x 2d PREDNISONE 20 MG ORAL TAB LET 447963 PREDNISONE Inactive LEVOFLOXACIN 500 MG ORAL TABLET 1 tab PO daily x 10 days LEVOFLOXACIN 500 MG ORAL TABLET 977925 LEVOFLOXACIN Inactive CYCLOBENZAPRINE HCL 10 MG ORAL TABLET 1 tablet by mouth BID prn had pain CYCLOBENZAPRINE HCL 10 MG ORAL TABLET 311184 CYCLOBENZAPRINE HCL Inactive ZOCOR 40 MG ORAL TABLET 1 tab by mouth daily 4 ZOCOR 40 MG ORAL TABLET 259698 SIMVASTATIN Inactive TUSSIONEX PENNKINETIC ER 10-8 MG/5ML [...] FLUTICASONE PROPIO EFE 50 MCG/ACT NASAL SUSPENSION 6312710 FLUTICASONE PROPIONATE Inactive TUSSIONEX PENNKINETIC ER 10-8 [...] three days PREDNISONE 20 MG ORAL TABLET 062369 PREDNIS ONE Inactive PROAIR HFA 108 (90 BASE) MCG/ACT INHALATION AEROSOL SO LUTION 2 puffs four times a day as needed PROAIR HFA 108 (90 B ASE) MCG/ACT INHALATION AEROSOL SOLUTION ALBUTEROL SULFATE Inactive PREDNISONE 20 MG ORAL TABLET two tabs by mouth today, then one tab by mouth days two and three and four PREDNISONE 20 MG ORAL TAB LET 953039 PREDNISONE Inactive TUSSIONEX PENNKINETIC ER 10-8 MG/5ML [...] bid 04/20 TOPAMAX 100 MG ORAL TABLET 505257 TOPIRAMATE Inactive ZITHROMAX Z-REYNA 250 MG ORAL TABLET 2 today, then 1 daily for 4 d ays ZITHROMAX Z-REYNA 250 MG ORAL TABLET 150044 AZITHROMYCIN Inactive CEFDINIR 300 MG ORAL CAPSULE [...] 20 03/07/07 ZITHROMAX 250 MG ORAL TABLET 663094 AZITHROMYCIN [place] ctive CEFDINIR 300 MG ORAL CAPSULE by mouth twice a day 2011 CEFDINIR 300 MG ORAL CAPSULE 994446 CEFDINIR Inactive PREDNISONE 20 MG ORAL TABLET 2 tabs daily for 3 days, 1 tab daily for 3 days, 1/2 tab daily for 2 days PREDNISONE 20 MG ORAL T ABLET 625457 PREDNISONE Inactive AVELOX 400 MG ORAL TABLET 1 tab by mouth daily AVELOX 400 MG ORAL TABLET 496783 MOXIFLOXACIN HCL Inactive AVELOX 400 MG ORAL TABLET 1 tab by mouth daily AVELOX 400 MG ORAL TABLET 761835 MOXIFLOXACIN HCL Inactive PREDNISONE 20 MG ORAL TABLET Take 3 tabs daily for 3 d ays, 2 tabs daily for 3 days, 1 tab daily for 3 days, 1/2 tab daily for 3 days 11/07 PREDNISONE 20 MG ORAL TABLET 963633 PREDNISONE Inactive LEVAQUIN 500 MG ORAL TABLET take one po QD LEVAQUIN 500 MG ORAL TABLET 759689 LEVOFLOXACIN Inactive AZITHROMYCIN 250 MG ORAL TABLET 2 po qd x 1 day, then 1 po q d x 4 days AZITHROMYCIN 250 MG ORAL TABLET 975765 AZITHROMY GIOVANNI Inactive MEDROL 4 MG ORAL TABLET THERAPY PACK 6 tabs on day 1, 5 tabs on day 2, 4 tabs on day 3, 3 tabs on day 4, 2 tabs on day 5, 1 tab on day 6 2013 MEDROL 4 MG ORAL TABLET THERAPY PACK 590865 METHYLPREDNISOLONE [place] ctive CHERATUSSIN AC 100-10 MG/5ML ORAL SYRUP 5ml po q6hr PRN Cough 20 13/04/14 CHERATUSSIN AC 100-10 MG/5ML ORAL SYRUP 992393 GUAIFENE SIN-CODEINE Inactive TRIAMCINOLONE ACETONIDE 0.1 % EXTERNAL CREAM apply three roger es daily prn rash TRIAMCINOLONE ACETONIDE 0.1 % EXTERNAL CREAM 101 4314 TRIAMCINOLONE ACETONIDE Inactive AZITHROMYCIN 250 MG ORAL TABLET 2 po qd x 1 day, then 1 po q d x 4 days AZITHROMYCIN 250 MG ORAL TABLET 450406 AZITHROMY GIOVANNI Inactive MEDROL 4 MG ORAL TABLET THERAPY PACK 6 pills x 1 day, then 5 pills x 1 day then 4 pills x 1 day, then 3 pills x 1 day, then 2 pills x 1 day, then 1 pill x 1 day, then stop MEDROL 4 MG ORAL TABLET THERAPY PACK 822699 METHYLPREDNISOLONE Inactive AMOXICILLIN 500 MG ORAL CAPSULE 1 tab by mouth 3 times daily x 10 days AMOXICILLIN 500 MG ORAL CAPSULE 650446 AMOXICILL IN Inactive AMOXICILLIN 500 MG ORAL CAPSULE 1 tab by mouth 3 times daily x 10 days AMOXICILLIN 500 MG ORAL CAPSULE 375861 AMOXICILL IN Inactive ZITHROMAX 250 MG ORAL TABLET 2 po today, then 1 po q days 2-5 20 12/08/14 ZITHROMAX 250 MG ORAL TABLET 375177 AZITHROMYCIN [place] ctive AUGMENTIN 875-125 MG ORAL TABLET 1 po BID x 10 days 20 13/01/20 AUGMENTIN 875-125 MG ORAL TABLET 181996 AMOXICILLIN-POT CLAVULANATE Inactive ZITHROMAX Z-REYNA 250 MG ORAL TABLET 2 today, then 1 daily for 4 d ays ZITHROMAX Z-REYNA 250 MG ORAL TABLET 561394 AZITHROMYCIN Inactive ZITHROMAX 250 MG ORAL TABLET 2 po today, then 1 po q days 2-5 20 14/03/21 ZITHROMAX 250 MG ORAL TABLET 269603 AZITHROMYCIN Greer ctive ZITHROMAX Z-REYNA 250 MG ORAL TABLET 2 today, then 1 daily for 4 d ays ZITHROMAX Z-REYNA 250 MG ORAL TABLET 129641 AZITHROMYCIN Inactive CEFDINIR 300 MG ORAL CAPSULE 1 po BID x 10 days 06/21 CEFDINIR 300 MG ORAL CAPSULE 956994 CEFDINIR Inactive ZITHROMAX 250 MG ORAL TABLET 2 po today, then 1 po q days 2-5 20 13/08/10 ZITHROMAX 250 MG ORAL TABLET 645039 AZITHROMYCIN Greer ctive LEVAQUIN 500 MG ORAL TABLET 1 tablet by mouth daily 13/09/24 LEVAQUIN 500 MG ORAL TABLET 166480 LEVOFLOXACIN Inactive SINGULAIR 10 MG ORAL TABLET 1 po qday for allergies 20 14/01/12 SINGULAIR 10 MG ORAL TABLET 782485 MONTELUKAST SODIUM Inactive AMOXICILLIN 500 MG ORAL CAPSULE 2 po BID x 10 days 201 09/29/08 AMOXICILLIN 500 MG ORAL CAPSULE 338878 AMOXICILLIN Inactive PREDNISONE 20 MG ORAL TABLET 2 tabs daily for 3 days, 1 tab daily for 3 days, 1/2 tab daily for 2 days PREDNISONE 20 MG ORAL T ABLET 409843 PREDNISONE Inactive ZITHROMAX Z-REYNA 250 MG ORAL TABLET 2 today, then 1 daily for 4 d ays ZITHROMAX Z-REYNA 250 MG ORAL TABLET 658996 AZITHROMYCIN Inactive PREDNISONE 20 MG ORAL TABLET 2 tabs daily for 3 days, 1 tab daily for 3 days, 1/2 tab daily for 2 days PREDNISONE 20 MG ORAL T ABLET 648113 PREDNISONE Inactive ZITHROMAX 250 MG ORAL TABLET 2 po today, then 1 po q days 2-5 20 14/09/04 ZITHROMAX 250 MG ORAL TABLET 100963 AZITHROMYCIN [place] [facility] AMOXICILLIN 500 MG ORAL CAPSULE 1 cap by mouth three times a day AMOXICILLIN 500 MG ORAL CAPSULE 993157 AMOXICILLIN Inactive TERBINAFINE HCL 250 MG ORAL TABLET 1 qDay for nail fungus 7 TERBINAFINE HCL 250 MG ORAL TABLET 027778 TERBINAFINE HCL Inact nael AUGMENTIN 875-125 MG ORAL TABLET 1 po BID x 10 days 16/03/22 AUGMENTIN 875-125 MG ORAL TABLET 202154 AMOXICILLIN-POT CLAVULANATE Inactive PREDNISONE 20 MG ORAL TABLET 2 po qd x 5 days PREDNISONE 20 MG ORAL TABLET 723655 PREDNISONE Inactive AZITHROMYCIN 250 MG ORAL TABLET 2 po qd x 1 day, then 1 po q d x 4 days AZITHROMYCIN 250 MG ORAL TABLET 438346 AZITHROMY GIOVANNI Inactive PREDNISONE 50 MG ORAL TABLET Take 50 mg dialy for 6 day s 7 PREDNISONE 50 MG ORAL TABLET 238414 PREDNISONE Inactive AUGMENTIN 875-125 MG ORAL TABLET 1 po BID x 10 days 20 18/04/16 AUGMENTIN 875-125 MG ORAL TABLET 794965 AMOXICILLIN-POT CLAVULANATE Inactive Vital Signs Date Name [...] weight E&M 141 [lb_av] Weight Measure d Diagnostic Results Date Name Value Unit Range Description Lab Report: Basic Metabolic Panel - Chem istry sodium, serum 139 mmol/L 676-995 8093/03/19 potassium, serum 3.6 mmol/L 3.5-5.2 chloride, serum 100 mmol/L 98-107 carbon dioxide, venous blood 30.3 mmol/L 21.0-32 .0 blood glucose 101 mg/dL 65-110 calcium, serum 9.4 mg/dL 8.5-10.1 urea nitrogen, blood 10 mg/dL 7-18 creatinine, serum 0.96 mg/dL 0.60-1.30 sodium, serum 139 mmol/L 330-912 4645/10/12 potassium, serum 3.8 mmol/L 3.5-5.2 chloride, serum 102 mmol/L 98-107 carbon dioxide, venous blood 29.4 mmol/L 21.0-32 .0 blood glucose 103 mg/dL 65-95 calcium, serum 8.8 mg/dL 8.5-10.1 urea nitrogen, blood 10 mg/dL 7-18 creatinine, serum 0.97 mg/dL 0.60-1.30 Estimated Glomerular Filtration Rate (calc) 62 (?) mL/min/1.73m2 = OR > 60 mL/min Encounters Code Encounter Date Provider Facility CPT-31669 Level 3 Est. Patient 09:46:49 [employer] David lion [facility] CPT-86724 08198-Tcq Vst-Est Level III 11:12:16 CDT Yanet Bess DO [facility] CPT-62144 Level 3 Est. Patient 11:34:49 [employer] Perez Mora MD [facility] CPT-48101 Level 4 Est. Patient 09:51:32 [employer] Carlton rich MD [facility]-91879 Level 3 Est. Patient 10:26:00 [employer] Elise Hitchcock [facility] CPT-44982 Level 3 Est. Patient 13:35:41 [employer] Carlton rich MD [facility] CPT-95993 Level 3 Est. Patient 10:03:52 [employer] Carlton rich MD [facility] CPT-00100 Level 3 Est. Patient 12:17:50 CDT Hugo Restrepo MD [facility] CPT-55681 Level 3 Est. Patient 13:42:38 CDT Elise Hitchcock [facility] CPT-23966 Level 3 Est. Patient 13:23:51 CDT Diya cobian [facility] CPT-22020 Level 3 Est. Patient 14:22:19 [employer] Diya cobian [facility] CPT-37166 Level 3 Est. Patient 10:11:46 CDT Carlton rich MD [facility] CPT-88178 Level 3 Est. Patient 17:29:43 CDT Elise Are ll [facility] CPT-83530 Level 3 Est. Patient 11:58:06 CDT Elise Are ll [facility] CPT-77149 Level 4 Est. Patient 14:36:51 CDT Carlton rich MD [facility]-66147 Level 3 Est. Patient 18:16:00 [employer] Blaine Freeman [facility] CPT-17604 Level 3 Est. Patient 09:45:49 [employer] Carlton rich MD [facility] CPT-41617 Level 3 Est. Patient 13:19:20 CDT Carlton rich MD [facility] CPT-13186 Level 3 Est. Patient 13:06:43 CDT Ridge tam DO [facility] CPT-24674 Level 3 Est. Patient 10:03:07 CDT Perez Mora MD [facility] CPT-58857 Level 3 Est. Patient 19:50:35 [employer] Carlton rich MD [facility] CPT-08101 Level 4 Est. Patient 18:05:01 [employer] Carlton rich MD [facility] CPT-49640 Level 3 Est. Patient 10:45:55 [employer] Hugo Restrepo MD [facility]-10611 Level 3 Est. Patient 14:12:49 CDT Griffin lincoln [facility] CPT-42868 Level 3 Est. Patient 17:37:24 CDT Carlton rich MD [facility] CPT-53765 Level 3 Est. Patient 16:51:54 CDT Carlton rich MD [facility] CPT-69764 Level 3 Est. Patient 12:18:11 CDT Hugo Restrepo MD [facility] CPT-40847 Level 3 Est. Patient 11:30:25 CDT Marcy crisostomo MD PhD [facility] CPT-59859 Level 3 Est. Patient 12:00:47 [employer] Carlton rich MD [facility] CPT-29319 Level 3 Est. Patient 16:31:06 [employer] Carlton rich MD [facility]-96964 Level 3 Est. Patient 16:23:24 [employer] Ridge tam [facility] CPT-58324 Level 3 Est. Patient 12:34:12 CDT Carlton rich MD [facility] CPT-21613 Level 2 Est. Patient 15:43:33 CDT Robi armstrong MD [facility] CPT-84845 Level 4 Est. Patient 14:04:44 CDT Carlton rich MD [facility] CPT-03313 Level 3 Est. Patient 05:47:59 CDT Ridge tam [facility] CPT-86724 Level 3 Est. Patient 13:12:53 [employer] Carlton rich MD [facility] CPT-00052 Level 3 Est. Patient 14:26:53 CDT Hugo Restrepo MD [facility] Procedures Code Procedure Name Date Entry Date Standard Desc ription CPT-000 Give Appropriate Flu Vaccine 14:14:31 CDT 2 CPT-J1040 Depo Medrol 80 mg (Methyl Prednisolone A cetate) 10:42:44 CDT CPT-J1100 Decadron 8mg (Dexamethasone) 10:42:44 CDT 2 CPT-J0696 Rocephin 1gm Inj Solr 14:32:13 CDT CPT-J1020 Depo Medrol 60 mg (Methyl Prednisolone A cetate) 14:32:13 CDT CPT-J1100 Decadron 6mg (Dexamethasone) 14:32:13 CDT 2 CPT-70217 Hip bilat min 2V w AP pelvis 13:16:20 CDT 2 CPT-85140 Pelvis only 13:07:33 CDT CPT-62814 Spec Collection and Handling Fee 11:25:12 C DT CPT-25121 Fluzone Quadrivalent Intramuscular Suspe nsion 0.5 ML 14:31:55 CDT CPT-23167 Abx/Therapy Injection 13:28:47 [employer] CPT-J2930 Solu Medrol 125 mg (Methyl Prednisolone Sodium Succinate) 12:00:47 [employer] CPT-20419 Venipuncture Draw Fee 11:33:31 CDT CPT-87746 EKG Trac and Interp 11:21:09 CDT CPT-56902 Chest 2V Frontal and Lat 11:21:09 CDT 12/15 CPT-74776 Venipuncture Draw Fee 08:02:34 CDT CPT-18772 Chest 2V Frontal and Lat 05:47:59 CDT 06/05
--- OUTSIDE RECORDS SUMMARY | 2019-10-08 09:17 | XMS REPORT | Clinical Summary ---
Author Author Caitlin, Juliana Martinez Organization [facility] Address Unknown Phone Unavailable Allergies, Adverse [...] MD PhD Acute bronchitis DYSPNEA 786.05 Resolved Maryc De La Rosa MD PhD Shortness of [...] URI 465.9 Inactive Ridge Bess DO Ac [place] upper respiratory infections of unspecified site Body [...] MD PhD PNEUMONIA ICD-486 Inactive Marcy De LaR osa MD PhD 201 06/01/09 SINUSITIS ICD-473.9 Inactive [...] po q12hr PRN Cough HYDROCOD POLST-CHLORPHEN POLST 15158544424 Active David Marianne WINDOWS ADMINISTRATOR Active PREDNISONE 20 MG ORAL TABLET Take 2 tabs day 1 and 2 and 1 t ab days 3 and 4 PREDNISONE 25821794270 Active David Marianne WINDOWS ADMINISTRATOR Active DOXYCYCLINE HYCLATE 100 MG ORAL CAPSULE 1 cap by mouth twice latasha ly DOXYCYCLINE HYCLATE 83343687952 Active David Marianne WINDOWS ADMINISTRATOR Active TOPAMAX 100 MG ORAL TABLET Take 1 tablet po bid TOPIRAMATE 74775878067 No Longer Active David Marianne WINDOWS ADMINISTRATOR Active TUSSIONEX PENNKINETIC ER 10-8 MG/5ML ORAL SUSPENSION E XTENDED RELEASE 5ml po q12hr PRN Cough HYDROCOD POLST-CHLORPHEN POLST 5 0679852814 No Longer Active David Marianne WINDOWS ADMINISTRATOR Active AUGMENTIN 875-125 MG ORAL TABLET 1 po BID x 10 days 20 18/04/16 AMOXICILLIN-POT CLAVULANATE 01236293066 No Longer Active David Marianne WINDOWS ADMINISTRATOR Active PREDNISONE 50 MG ORAL TABLET Take 50 mg dialy for 6 day s 7 PREDNISONE 67444550111 No Longer Active David Lopes APRN Active TUSSIONEX PENNKINETIC ER 10-8 MG/5ML ORAL SUSPENSION E XTENDED RELEASE 5ml po q12hr PRN Cough HYDROCOD POLST-CHLORPHEN POLST 5 1172565579 No Longer Active Cherelle Torres RN Active PREDNISONE 20 MG ORAL TABLET two tabs by mouth today, then one tab by mouth days two and three and four PREDNISONE 59014579536 No Lo nger Active Cherelle Torres RN Active AZITHROMYCIN 250 MG ORAL TABLET 2 po qd x 1 day, then 1 po q d x 4 days AZITHROMYCIN 42637705813 No Longer Active Ridge Bess DO Active PREDNISONE 20 MG ORAL TABLET 2 po qd x 5 days P REDNISONE 63776946050 No Longer Active Perez Mora MD Active PROAIR HFA 108 (90 BASE) MCG/ACT INHALATION AEROSOL SO LUTION 2 puffs four times a day as needed ALBUTEROL SULFATE 88089451828 No Long er Active Becky AGUILARA Active ASPIRIN 81 MG ORAL TABLET 1 po qd ASPIRIN 25256670143 Active Carlton Hu MD Active PREDNISONE 20 MG ORAL TABLET 1 tab twice daily for 3 d ay, then one daily for three days PREDNISONE 41534109802 No Longer Active Carlton Hu MD Active AUGMENTIN 875-125 MG ORAL TABLET 1 po BID x 10 days 20 16/03/22 AMOXICILLIN-POT CLAVULANATE 72034701270 No Longer Active Elise Garcia APRN Active TERBINAFINE HCL 250 MG ORAL TABLET 1 qDay for nail fungus 7 TERBINAFINE HCL 37964190640 No Longer Active Carlton Hu MD A ctive AMOXICILLIN 500 MG ORAL CAPSULE 1 cap by mouth three times a day AMOXICILLIN 81490174379 No Longer Active Carlton Hu MD Active ELMIRON 100 MG ORAL CAPSULE 2 tablets in the am and 1 tablet at hs PENTOSAN POLYSULFATE SODIUM 63255216977 No Longer Active Robert Hu MD Active MUCINEX D 60-600 MG ORAL TABLET EXTENDED RELEASE 12 HOUR 1 t ab po q am PSEUDOEPHEDRINE-GUAIFENESIN 40442154064 No Longer Act nael Carlton Hu MD Active MUCINEX DM MAXIMUM STRENGTH 60-1200 MG ORAL TABLET EXT ENDED RELEASE 12 HOUR 1 tab po q am DEXTROMETHORPHAN-GUAIFENESIN 32515841929 No Longer Active Carlton Hu MD Active TUSSIONEX PENNKINETIC ER 10-8 MG/5ML ORAL SUSPENSION E XTENDED RELEASE 5ml po q12hr PRN Cough HYDROCOD POLST-CHLORPHEN POLST 5 0810425376 No Longer Active Carlton Hu MD Active POTASSIUM CHLORIDE ER 20 MEQ ORAL TABLET EXTENDED RELE ASE Take 1 by mouth 4 times daily for 7 days POTASSIUM CHLORIDE 34277589671 No Longer Active Carlton Hu MD Active ZITHROMAX 250 MG ORAL TABLET 2 po today, then 1 po q days 2-5 14/09/04 AZITHROMYCIN 62330327020 No Longer Active Elise Garcia APRN Active TUSSIONEX PENNKINETIC ER 10-8 MG/5ML ORAL SUSPENSION E XTENDED RELEASE 5 ml twice a day as needed for cough HYDROCOD POLST-CHLORPH EN POLST 14918817684 No Longer Active Elise Garcia APRN Active MONTELUKAST SODIUM 10 MG ORAL TABLET 1 po daily for Allergy MONTELUKAST SODIUM 12450947751 Active Carlton Hu MD Ac tive TUSSIONEX PENNKINETIC ER 10-8 MG/5ML ORAL SUSPENSION E XTENDED RELEASE 5ml po q12hr PRN Cough HYDROCOD POLST-CHLORPHEN POLST 5 6910037822 No Longer Active Hugo Restrepo MD Active GABAPENTIN 100 MG ORAL CAPSULE 1 po BID for fibromyalgia GABAPENTIN 24874526474 Active Carlton Hu MD Active LYRICA 100 MG ORAL CAPSULE Take 1 tab po BID for fibromyalgia 20 11/08/21 PREGABALIN 16527626369 No Longer Active Elise Garcia APRN A ctive PREDNISONE 20 MG ORAL TABLET 2 tabs daily for 3 days, 1 tab daily for 3 days, 1/2 tab daily for 2 days PREDNISONE 68519355501 No Longer Active Jillina Frakerriel WINDOWS ADMINISTRATOR Active TUSSIONEX PENNKINETIC ER 10-8 MG/5ML ORAL SUSPENSION E XTENDED RELEASE 5 mL PO q 12 hrs PRN cough HYDROCOD POLST-CHLORPHEN POLST 603345 76795 No Longer Active Jillina Frazell WINDOWS ADMINISTRATOR Active FLUTICASONE PROPIONATE 50 MCG/ACT NASAL SUSPENSION 2 s prays each nostril daily until bottle is empty FLUTICASONE PROPIONATE 787138460 99 No Longer Active Jillina Frazell WINDOWS ADMINISTRATOR Active ASMANEX 60 METERED DOSES 220 MCG/INH INHALATION AEROSO L POWDER BREATH ACTIVATED 1 puff bid with rinse after MOMETASONE FUROATE 0571159 4102 No Longer Active Jillina Frakerriel WINDOWS ADMINISTRATOR Active ZITHROMAX Z-REYNA 250 MG ORAL TABLET 2 today, then 1 daily for 4 d ays AZITHROMYCIN 27239647346 No Longer Active Elise Garcia WINDOWS ADMINISTRATOR Active TUSSIONEX PENNKINETIC ER 10-8 MG/5ML ORAL SUSPENSION E XTENDED RELEASE 5ml po q12hr PRN Cough HYDROCOD POLST-CHLORPHEN POLST 5 2893152600 No Longer Active Elise Garcia WINDOWS ADMINISTRATOR Active PREDNISONE 20 MG ORAL TABLET 2 tabs daily for 3 days, 1 tab daily for 3 days, 1/2 tab daily for 2 days PREDNISONE 15993590246 No Longer Active Jillina Frazell WINDOWS ADMINISTRATOR Active AMOXICILLIN 500 MG ORAL CAPSULE 2 po BID x 10 days 201 09/29/08 AMOXICILLIN 36899130423 No Longer Active Jillina Frazell WINDOWS ADMINISTRATOR Act nael SINGULAIR 10 MG ORAL TABLET 1 po qday for allergies 20 14/01/12 MONTELUKAST SODIUM 79389563174 No Longer Active Carlton Hu MD Active LEVAQUIN 500 MG ORAL TABLET 1 tablet by mouth daily 20 13/09/24 LEVOFLOXACIN 21746872680 No Longer Active Carlton Hu MD Acti ve FLUTICASONE PROPIONATE 50 MCG/ACT NASAL SUSPENSION 2 s prays each nostril daily for 2 weeks, then 1 spray each nostril daily. FLUTICASONE PROPIONATE 18794869578 Active ALFREDO Holly Active ZITHROMAX 250 MG ORAL TABLET 2 po today, then 1 po q days 2-5 20 13/08/10 AZITHROMYCIN 60862673232 No Longer Active Elise Garcia APRN Active XANAX 0.5 MG ORAL TABLET one tablet by mouth daily prn anxiety 2015 ALPRAZOLAM 97577886654 Active ALFREDO Holly Active CYMBALTA 30 MG ORAL CAPSULE DELAYED RELEASE PARTICLES 1 cap by mouth daily for depression DULOXETINE HCL 32384295458 Active ALFREDO Holly Active CEFDINIR 300 MG ORAL CAPSULE 1 po BID x 10 days CEFDINIR 25783523091 No Longer Active Carlton Hu MD Active ZOCOR 40 MG ORAL TABLET 1 tab by mouth daily SI MVASTATIN 24180289955 No Longer Active Carlton Hu MD Active CYCLOBENZAPRINE HCL 10 MG ORAL TABLET 1 tablet by mouth BID prn had pain CYCLOBENZAPRINE HCL 66994790168 No Longer Active Jayden Hu MD Active LEVOFLOXACIN 500 MG ORAL TABLET 1 tab PO daily x 10 days LEVOFLOXACIN 20432677906 No Longer Active Carlton Hu MD Acti ve PREDNISONE 20 MG ORAL TABLET 3 tab PO qd x 2d, 2 tab P O qd x 2d, 1 tab PO qd x 2d, 1/2 tab PO qd x 2d PREDNISONE 15234194058 No Lo nger Active Carlton Hu MD Active FLUTICASONE PROPIONATE 50 MCG/ACT NASAL SUSPENSION 1 t o 2 sprays each nostril daily FLUTICASONE PROPIONATE 64931148831 No Longer Ac tive lBaine HERNANDEZ Active CHERATUSSIN AC 100-10 MG/5ML ORAL SYRUP 1 tsp by mouth every 4 hours as needed for cough GUAIFENESIN-CODEINE 79854038034 No Longe r Active Blaine HERNANDEZ Active PROMETHAZINE-CODEINE 6.25-10 MG/5ML ORAL SYRUP 1 tsp b y mouth every 6 hours if needed for cough PROMETHAZINE-CODEINE 84370898005 No Longer Active Blaine HERNANDEZ Active CHERATUSSIN AC 100-10 MG/5ML ORAL SYRUP 1 tsp by mouth every 4 hours as needed for cough GUAIFENESIN-CODEINE 36902897513 No Longe r Active Blaine HERNANDEZ Active ZITHROMAX Z-REYNA 250 MG ORAL TABLET 2 today, then 1 daily for 4 d ays AZITHROMYCIN 36423969947 No Longer Active Columba Raida Act nael ZITHROMAX 250 MG ORAL TABLET 2 po today, then 1 po q days 2-5 20 14/03/21 AZITHROMYCIN 46488424155 No Longer Active Carlton Hu MD Active ZITHROMAX Z-REYNA 250 MG ORAL TABLET 2 today, then 1 daily for 4 d ays AZITHROMYCIN 08001948420 No Longer Active Columba Raida Act nael AUGMENTIN 875-125 MG ORAL TABLET 1 po BID x 10 days 13/01/20 AMOXICILLIN-POT CLAVULANATE 79507712903 No Longer Active Diya De Guzman APRN Active ZITHROMAX 250 MG ORAL TABLET 2 po today, then 1 po q days 2-5 20 12/08/14 AZITHROMYCIN 35943585487 No Longer Active Carlton Hu MD Active TRAMADOL HCL 50 MG ORAL TABLET 1 po tid with ES Tylenol TRAMADOL HCL 52596228244 Active Adrienne Galvez LPN Active PREMARIN 0.625 MG ORAL TABLET TAKE 1 TAB BY MOUTH DAILY ESTROGENS CONJUGATED 17832184203 No Longer Active Ridge Bess DO A ctive CYMBALTA 30 MG ORAL CAPSULE DELAYED RELEASE PARTICLES 1 cap by mouth daily DULOXETINE HCL 96469069716 No Longer Active Ridge Ya ee DO Active AMOXICILLIN 500 MG ORAL CAPSULE 1 tab by mouth 3 times daily x 10 days AMOXICILLIN 21445358011 No Longer Active Carlotn bustamante MD Active AMOXICILLIN 500 MG ORAL CAPSULE 1 tab by mouth 3 times daily x 10 days AMOXICILLIN 45110967295 No Longer Active Carlton bustamante MD Active PROMETHAZINE-CODEINE 6.25-10 MG/5ML ORAL SYRUP 1 tsp b y mouth every 8 hours prn cough PROMETHAZINE-CODEINE 59216620846 No Longer Acti ve Carlton Hu MD Active MEDROL 4 MG ORAL TABLET THERAPY PACK 6 pills x 1 day, then 5 pills x 1 day then 4 pills x 1 day, then 3 pills x 1 day, then 2 pills x 1 day, then 1 pill x 1 day, then stop METHYLPREDNISOLONE 67415997797 No Long er Active Perez Mora MD Active AZITHROMYCIN 250 MG ORAL TABLET 2 po qd x 1 day, then 1 po q d x 4 days AZITHROMYCIN 23043937871 No Longer Active Perez Ambriz MD Active SYMBICORT 160-4.5 MCG/ACT INHALATION AEROSOL 2 puffs bid wit h rinse after BUDESONIDE-FORMOTEROL FUMARATE 20994685890 N o Longer Active Perez Mora MD Active LYRICA 75 MG ORAL CAPSULE TAKE 1 CAPSULE BY MOUTH TWICE DAILY PREGABALIN 90450036177 No Longer Active Carlton Hu MD Acti ve TOPAMAX 25 MG ORAL TABLET 1 qHS x 1 week, then 1 BID x 1 week, then 1 qAM and 2 qHS x 1 week, then 2 BID (migraine prevention) T OPIRAMATE 33250060538 No Longer Active Jerica FUENTES Active TOPAMAX 50 MG ORAL TABLET take 1 tab po BID for migraines. 07/02 TOPIRAMATE 87586828109 No Longer Active Jerica FUENTES Active TRIAMCINOLONE ACETONIDE 0.1 % EXTERNAL CREAM apply three roger es daily prn rash TRIAMCINOLONE ACETONIDE 47610264950 No Longer Active Carlton Hu MD Active PAXIL 40 MG ORAL TABLET take 1 tab po qday for depression 0 PAROXETINE HCL 85502649826 Active ALFREDO Holly Active CHERATUSSIN AC 100-10 MG/5ML ORAL SYRUP 5ml po q6hr PRN Cough 20 13/04/14 GUAIFENESIN-CODEINE 56807365151 No Longer Active Carlton Hu MD Active MEDROL 4 MG ORAL TABLET THERAPY PACK 6 tabs on day 1, 5 tabs on day 2, 4 tabs on day 3, 3 tabs on day 4, 2 tabs on day 5, 1 tab on day 6 2013 METHYLPREDNISOLONE 53318921069 No Longer Active Perez Mora MD Active AZITHROMYCIN 250 MG ORAL TABLET 2 po qd x 1 day, then 1 po q d x 4 days AZITHROMYCIN 57440551970 No Longer Active Perez Ambriz MD Active PROPRANOLOL HCL 60 MG ORAL TABLET 1 PO Q D PROPRANOLOL HCL 12318247955 No Longer Active Perez Mora MD Activ e CHERATUSSIN AC 100-10 MG/5ML ORAL SYRUP take one tsp po Q 6h ours prn cough GUAIFENESIN-CODEINE 45666918509 No Longer Active Zia Mora MD Active AUGMENTIN 875-125 MG ORAL TABLET 1 tab by mouth twice daily with food AMOXICILLIN-POT CLAVULANATE 30956812309 No Longer Act nael Perez Mora MD Active CHERATUSSIN AC 100-10 MG/5ML ORAL SYRUP 1 tsp by mouth every 4 hours as needed for cough GUAIFENESIN-CODEINE 47949294895 No Longe r Active Hugo Restrepo MD Active ACETAMINOPHEN-CODEINE #3 300-30 MG ORAL TABLET 1 PO Q 4-6 HRS AL N PAIN ACETAMINOPHEN-CODEINE 48331545538 No Longer Active Hugo Restrepo MD Active LEVAQUIN 500 MG ORAL TABLET take one po QD LEVO FLOXACIN 78321343663 No Longer Active Griffin HERNANDEZ Active PREDNISONE 20 MG ORAL TABLET Take 3 tabs daily for 3 d ays, 2 tabs daily for 3 days, 1 tab daily for 3 days, 1/2 tab daily for 3 days 11/07 PREDNISONE 17204818107 No Longer Active Carlton Hu MD Acti ve AVELOX 400 MG ORAL TABLET 1 tab by mouth daily MOXIFLOXACIN HCL 64114568036 No Longer Active Carlton Hu MD Active CHERATUSSIN AC 100-10 MG/5ML ORAL SYRUP 1 tsp by mouth every 4 hours as needed for cough GUAIFENESIN-CODEINE 17835190017 No Longe r Active Hugo Restrepo MD Active AVELOX 400 MG ORAL TABLET 1 tab by mouth daily MOXIFLOXACIN HCL 98515071588 No Longer Active Marcy De La Rosa MD PhD Active TERBINAFINE HCL 250 MG ORAL TABLET 1 qDay T ERBINAFINE HCL 07301842075 No Longer Active Marcy De La Rosa MD PhD Active CHERATUSSIN AC 100-10 MG/5ML ORAL SYRUP 1 tsp by mouth every 4 hours as needed for cough GUAIFENESIN-CODEINE 96588524079 No Longe r Active Marcy De La Rosa MD PhD Active AVELOX 400 MG ORAL TABLET 1 tab by mouth daily MOXIFLOXACIN HCL 82726912967 No Longer Active Marcy De La Rosa MD PhD Active HYDROCODONE-ACETAMINOPHEN 5-325 MG ORAL TABLET 1 po q 6hr PRN co ugh HYDROCODONE-ACETAMINOPHEN 22307859868 No Longer Active Marcy De La Rosa MD PhD Active PREDNISONE 20 MG ORAL TABLET 2 tabs daily for 3 days, 1 tab daily for 3 days, 1/2 tab daily for 2 days PREDNISONE 32050164055 No Longer Active Carlton Hu MD Active CEFDINIR 300 MG ORAL CAPSULE by mouth twice a day 2011 CEFDINIR 06762841573 No Longer Active Carlton Hu MD Acti ve HYDROCHLOROTHIAZIDE 25 MG ORAL TABLET 1 TAB PO DAILY HYDROCHLOROTHIAZIDE 84816124874 Active ALFREDO Holly Ac tive ACETAMINOPHEN-CODEINE #3 300-30 MG ORAL TABLET 1 tablet po q 4-6 hrs prn pain ACETAMINOPHEN-CODEINE 25266932334 No Longer Active Ridge Bess DO Active ZITHROMAX 250 MG ORAL TABLET 2 po today, then 1 po q days 2-5 20 03/07/07 AZITHROMYCIN 56428075815 No Longer Active Carlton Hu MD Active CHERATUSSIN AC 100-10 MG/5ML ORAL SYRUP take 1 tsp po q4-6 h ours prn cough GUAIFENESIN-CODEINE 28431439591 No Longer Active Jayden Hu MD Active ACETAMINOPHEN-CODEINE #3 300-30 MG ORAL TABLET 1 PO Q 4-6 HR PRN PAIN ACETAMINOPHEN-CODEINE 02773557924 No Longer Active Da raimundo Hu MD Active LORTAB 7.5-500 MG/15ML ORAL ELIXIR 7.5 ml po q 4 hour prn cough HYDROCODONE-ACETAMINOPHEN 52066311689 No Longer Active Carlton Hu MD Active PREDNISONE 20 MG ORAL TABLET 1 po bid 3 days, then 1 po q day 3 days PREDNISONE 93715934538 No Longer Active Carlton Hu MD Active CEFDINIR 300 MG ORAL CAPSULE by mouth twice a day 2011 CEFDINIR 62689474977 No Longer Active Carlton Hu MD Acti ve CEFDINIR 300 MG ORAL CAPSULE by mouth twice a day 2010 CEFDINIR 56265836477 No Longer Active Carlton Hu MD Acti ve CEFDINIR 300 MG ORAL CAPSULE by mouth twice a day 2010 CEFDINIR 22374029343 No Longer Active Carlton Hu MD Acti ve TESSALON PERLES 100 MG ORAL CAPSULE 1 tablet by mouth 3 times daily as needed for cough BENZONATATE 32748305728 No Longer Active Carlton Hu MD Active CEFDINIR 300 MG ORAL CAPSULE by mouth twice a day 2010 CEFDINIR 36557171951 No Longer Active Carlton Hu MD Acti ve ZITHROMAX Z-REYNA 250 MG ORAL TABLET 2 today, then 1 daily for 4 d ays AZITHROMYCIN 50784824113 No Longer Active Hugo Restrepo MD Active TESSALON PERLES 100 MG ORAL CAPSULE 1 tablet by mouth 3 times daily as needed for cough TESSALON PERLES 100 MG ORAL CAPSULE 20963 7 BENZONATATE Inactive PREDNISONE 20 MG ORAL TABLET 1 po bid 3 days, then 1 po q day 3 days PREDNISONE 20 MG ORAL TABLET 039395 PREDNISONE [place] ctive LORTAB 7.5-500 MG/15ML ORAL ELIXIR 7.5 [...] cough CHERATUSSIN AC 100-10 MG/5ML ORAL SYRUP 510310 GUAIFENESIN-CODEINE Inactive ACETAMINOPHEN-CODEINE #3 300-30 MG ORAL TABLET 1 tablet po q 4-6 hrs prn pain ACETAMINOPHEN-CODEINE #3 300-30 MG ORAL TABLET ACETAMINOPHEN-CODEINE Inactive HYDROCODONE-ACETAMINOPHEN 5-325 MG ORAL TABLET 1 po q 6hr PRN co ugh HYDROCODONE-ACETAMINOPHEN 5-325 MG ORAL TABLET 634475 HYDROCODONE-ACETAMINOPHEN Inactive AVELOX 400 MG ORAL TABLET 1 tab by mouth daily AVELOX 400 MG ORAL TABLET 365456 MOXIFLOXACIN HCL Inactive CHERATUSSIN AC 100-10 MG/5ML ORAL SYRUP 1 tsp by mouth every 4 hours as needed for cough CHERATUSSIN AC 100-10 MG/5ML ORAL SYRUP 9 99142 GUAIFENESIN-CODEINE Inactive TERBINAFINE HCL 250 MG ORAL TABLET 1 qDay 07/08 TERBINAFINE HCL 250 MG ORAL TABLET 988021 TERBINAFINE HCL Inactive CHERATUSSIN AC 100-10 MG/5ML ORAL SYRUP 1 tsp by mouth every 4 hours as needed for cough CHERATUSSIN AC 100-10 MG/5ML ORAL SYRUP 9 45007 GUAIFENESIN-CODEINE Inactive ACETAMINOPHEN-CODEINE #3 300-30 MG ORAL TABLET 1 PO Q 4-6 HRS AL N PAIN ACETAMINOPHEN-CODEINE #3 300-30 MG ORAL TABLET ACETAMINOPHEN-CODEINE Inactive CHERATUSSIN AC 100-10 MG/5ML ORAL SYRUP 1 tsp by mouth every 4 hours as needed for cough CHERATUSSIN AC 100-10 MG/5ML ORAL SYRUP 9 14435 GUAIFENESIN-CODEINE Inactive AUGMENTIN 875-125 MG ORAL TABLET 1 tab by mouth twice daily with food AUGMENTIN 875-125 MG ORAL TABLET 111454 AMOXICIL MADELINE-POT CLAVULANATE Inactive CHERATUSSIN AC 100-10 MG/5ML ORAL SYRUP take one tsp po Q 6h ours prn cough CHERATUSSIN AC 100-10 MG/5ML ORAL SYRUP 696000 GUAIFENESIN-CODEINE Inactive PROPRANOLOL HCL 60 MG ORAL TABLET 1 PO Q D PROPRANOLOL HCL 60 MG ORAL TABLET 621211 PROPRANOLOL HCL Inactive TOPAMAX 50 MG ORAL TABLET take 1 tab po BID for migraines. 07/02 TOPAMAX 50 MG ORAL TABLET 173893 TOPIRAMATE Inacti ve TOPAMAX 25 MG ORAL TABLET 1 qHS x 1 week, then 1 BID x 1 week, then 1 qAM and 2 qHS x 1 week, then 2 BID (migraine prevention) TOPAMAX 25 MG ORAL TABLET 214089 TOPIRAMATE Inactive LYRICA 75 MG ORAL CAPSULE TAKE 1 CAPSULE BY MOUTH TWICE DAILY LYRICA 75 MG ORAL CAPSULE PREGABALIN Inactive SYMBICORT 160-4.5 MCG/ACT INHALATION AEROSOL 2 puffs bid wit h rinse after SYMBICORT 160-4.5 MCG/ACT INHALATION AEROSOL BUDESONIDE- FORMOTEROL FUMARATE Inactive PROMETHAZINE-CODEINE 6.25-10 MG/5ML ORAL SYRUP 1 tsp b y mouth every 8 hours prn cough PROMETHAZINE-CODEINE 6.25-10 MG/ 5ML ORAL SYRUP 736311 PROMETHAZINE-CODEINE Inactive CYMBALTA 30 MG ORAL CAPSULE DELAYED RELEASE PARTICLES 1 cap by mouth daily CYMBALTA 30 MG ORAL CAPSULE DELAYED RELE ASE PARTICLES 918025 DULOXETINE HCL Inactive PREMARIN 0.625 MG ORAL TABLET TAKE 1 TAB BY MOUTH DAILY PREMARIN 0.625 MG ORAL TABLET ESTROGENS CONJUGATED Inactive CHERATUSSIN AC 100-10 MG/5ML ORAL SYRUP 1 tsp by mouth every 4 hours as needed for cough CHERATUSSIN AC 100-10 MG/5ML ORAL SYRUP 9 37872 GUAIFENESIN-CODEINE Inactive PROMETHAZINE-CODEINE 6.25-10 MG/5ML ORAL SYRUP 1 tsp b y mouth every 6 hours if needed for cough PROMETHAZINE-CODEINE 6.25-10 MG/5ML ORAL SYRUP 864203 PROMETHAZINE-CODEINE Inactive CHERATUSSIN AC 100-10 MG/5ML ORAL SYRUP 1 tsp by mouth every 4 hours as needed for cough CHERATUSSIN AC 100-10 MG/5ML ORAL SYRUP 9 29063 GUAIFENESIN-CODEINE Inactive FLUTICASONE PROPIONATE 50 MCG/ACT NASAL SUSPENSION 1 t o 2 sprays each nostril daily FLUTICASONE PROPIONATE 50 MCG/AC T NASAL SUSPENSION 9196273 FLUTICASONE PROPIONATE Inactive PREDNISONE 20 MG ORAL TABLET 3 tab PO qd x 2d, 2 tab P O qd x 2d, 1 tab PO qd x 2d, 1/2 tab PO qd x 2d PREDNISONE 20 MG ORAL TAB LET 891524 PREDNISONE Inactive LEVOFLOXACIN 500 MG ORAL TABLET 1 tab PO daily x 10 days LEVOFLOXACIN 500 MG ORAL TABLET 737641 LEVOFLOXACIN Inactive CYCLOBENZAPRINE HCL 10 MG ORAL TABLET 1 tablet by mouth BID prn had pain CYCLOBENZAPRINE HCL 10 MG ORAL TABLET 370362 CYCLOBENZAPRINE HCL Inactive ZOCOR 40 MG ORAL TABLET 1 tab by mouth daily 4 ZOCOR 40 MG ORAL TABLET 938999 SIMVASTATIN Inactive TUSSIONEX PENNKINETIC ER 10-8 MG/5ML [...] FLUTICASONE PROPIO EFE 50 MCG/ACT NASAL SUSPENSION 7915230 FLUTICASONE PROPIONATE Inactive TUSSIONEX PENNKINETIC ER 10-8 [...] three days PREDNISONE 20 MG ORAL TABLET 535445 PREDNIS ONE Inactive PROAIR HFA 108 (90 BASE) MCG/ACT INHALATION AEROSOL SO LUTION 2 puffs four times a day as needed PROAIR HFA 108 (90 B ASE) MCG/ACT INHALATION AEROSOL SOLUTION ALBUTEROL SULFATE Inactive PREDNISONE 20 MG ORAL TABLET two tabs by mouth today, then one tab by mouth days two and three and four PREDNISONE 20 MG ORAL TAB LET 125767 PREDNISONE Inactive TUSSIONEX PENNKINETIC ER 10-8 MG/5ML [...] bid 04/20 TOPAMAX 100 MG ORAL TABLET 896542 TOPIRAMATE Inactive ZITHROMAX Z-REYNA 250 MG ORAL TABLET 2 today, then 1 daily for 4 d ays ZITHROMAX Z-REYNA 250 MG ORAL TABLET 032563 AZITHROMYCIN Inactive CEFDINIR 300 MG ORAL CAPSULE [...] 20 03/07/07 ZITHROMAX 250 MG ORAL TABLET 671802 AZITHROMYCIN [place] ctive CEFDINIR 300 MG ORAL CAPSULE by mouth twice a day 2011 CEFDINIR 300 MG ORAL CAPSULE 280432 CEFDINIR Inactive PREDNISONE 20 MG ORAL TABLET 2 tabs daily for 3 days, 1 tab daily for 3 days, 1/2 tab daily for 2 days PREDNISONE 20 MG ORAL T ABLET 153565 PREDNISONE Inactive AVELOX 400 MG ORAL TABLET 1 tab by mouth daily AVELOX 400 MG ORAL TABLET 667718 MOXIFLOXACIN HCL Inactive AVELOX 400 MG ORAL TABLET 1 tab by mouth daily AVELOX 400 MG ORAL TABLET 936978 MOXIFLOXACIN HCL Inactive PREDNISONE 20 MG ORAL TABLET Take 3 tabs daily for 3 d ays, 2 tabs daily for 3 days, 1 tab daily for 3 days, 1/2 tab daily for 3 days 11/07 PREDNISONE 20 MG ORAL TABLET 623357 PREDNISONE Inactive LEVAQUIN 500 MG ORAL TABLET take one po QD LEVAQUIN 500 MG ORAL TABLET 233009 LEVOFLOXACIN Inactive AZITHROMYCIN 250 MG ORAL TABLET 2 po qd x 1 day, then 1 po q d x 4 days AZITHROMYCIN 250 MG ORAL TABLET 081624 AZITHROMY GIOVANNI Inactive MEDROL 4 MG ORAL TABLET THERAPY PACK 6 tabs on day 1, 5 tabs on day 2, 4 tabs on day 3, 3 tabs on day 4, 2 tabs on day 5, 1 tab on day 6 2013 MEDROL 4 MG ORAL TABLET THERAPY PACK 726303 METHYLPREDNISOLONE [place] ctive CHERATUSSIN AC 100-10 MG/5ML ORAL SYRUP 5ml po q6hr PRN Cough 20 13/04/14 CHERATUSSIN AC 100-10 MG/5ML ORAL SYRUP 042627 GUAIFENE SIN-CODEINE Inactive TRIAMCINOLONE ACETONIDE 0.1 % EXTERNAL CREAM apply three roger es daily prn rash TRIAMCINOLONE ACETONIDE 0.1 % EXTERNAL CREAM 101 4314 TRIAMCINOLONE ACETONIDE Inactive AZITHROMYCIN 250 MG ORAL TABLET 2 po qd x 1 day, then 1 po q d x 4 days AZITHROMYCIN 250 MG ORAL TABLET 529297 AZITHROMY GIOVANNI Inactive MEDROL 4 MG ORAL TABLET THERAPY PACK 6 pills x 1 day, then 5 pills x 1 day then 4 pills x 1 day, then 3 pills x 1 day, then 2 pills x 1 day, then 1 pill x 1 day, then stop MEDROL 4 MG ORAL TABLET THERAPY PACK 459690 METHYLPREDNISOLONE Inactive AMOXICILLIN 500 MG ORAL CAPSULE 1 tab by mouth 3 times daily x 10 days AMOXICILLIN 500 MG ORAL CAPSULE 429878 AMOXICILL IN Inactive AMOXICILLIN 500 MG ORAL CAPSULE 1 tab by mouth 3 times daily x 10 days AMOXICILLIN 500 MG ORAL CAPSULE 950008 AMOXICILL IN Inactive ZITHROMAX 250 MG ORAL TABLET 2 po today, then 1 po q days 2-5 20 12/08/14 ZITHROMAX 250 MG ORAL TABLET 987877 AZITHROMYCIN Greer ctive AUGMENTIN 875-125 MG ORAL TABLET 1 po BID x 10 days 20 13/01/20 AUGMENTIN 875-125 MG ORAL TABLET 197408 AMOXICILLIN-POT CLAVULANATE Inactive ZITHROMAX Z-REYNA 250 MG ORAL TABLET 2 today, then 1 daily for 4 d ays ZITHROMAX Z-REYNA 250 MG ORAL TABLET 219310 AZITHROMYCIN Inactive ZITHROMAX 250 MG ORAL TABLET 2 po today, then 1 po q days 2-5 20 14/03/21 ZITHROMAX 250 MG ORAL TABLET 280993 AZITHROMYCIN Greer ctive ZITHROMAX Z-REYNA 250 MG ORAL TABLET 2 today, then 1 daily for 4 d ays ZITHROMAX Z-REYNA 250 MG ORAL TABLET 317067 AZITHROMYCIN Inactive CEFDINIR 300 MG ORAL CAPSULE 1 po BID x 10 days 06/21 CEFDINIR 300 MG ORAL CAPSULE 596188 CEFDINIR Inactive ZITHROMAX 250 MG ORAL TABLET 2 po today, then 1 po q days 2-5 20 13/08/10 ZITHROMAX 250 MG ORAL TABLET 391435 AZITHROMYCIN Greer ctive LEVAQUIN 500 MG ORAL TABLET 1 tablet by mouth daily 13/09/24 LEVAQUIN 500 MG ORAL TABLET 389590 LEVOFLOXACIN Inactive SINGULAIR 10 MG ORAL TABLET 1 po qday for allergies 20 14/01/12 SINGULAIR 10 MG ORAL TABLET 824825 MONTELUKAST SODIUM Inactive AMOXICILLIN 500 MG ORAL CAPSULE 2 po BID x 10 days 201 09/29/08 AMOXICILLIN 500 MG ORAL CAPSULE 445001 AMOXICILLIN Inactive PREDNISONE 20 MG ORAL TABLET 2 tabs daily for 3 days, 1 tab daily for 3 days, 1/2 tab daily for 2 days PREDNISONE 20 MG ORAL T ABLET 807135 PREDNISONE Inactive ZITHROMAX Z-REYNA 250 MG ORAL TABLET 2 today, then 1 daily for 4 d ays ZITHROMAX Z-REYNA 250 MG ORAL TABLET 823371 AZITHROMYCIN Inactive PREDNISONE 20 MG ORAL TABLET 2 tabs daily for 3 days, 1 tab daily for 3 days, 1/2 tab daily for 2 days PREDNISONE 20 MG ORAL T ABLET 956755 PREDNISONE Inactive ZITHROMAX 250 MG ORAL TABLET 2 po today, then 1 po q days 2-5 20 14/09/04 ZITHROMAX 250 MG ORAL TABLET 521198 AZITHROMYCIN [place] [facility] AMOXICILLIN 500 MG ORAL CAPSULE 1 cap by mouth three times a day AMOXICILLIN 500 MG ORAL CAPSULE 332001 AMOXICILLIN Inactive TERBINAFINE HCL 250 MG ORAL TABLET 1 qDay for nail fungus 7 TERBINAFINE HCL 250 MG ORAL TABLET 021672 TERBINAFINE HCL Inact nael AUGMENTIN 875-125 MG ORAL TABLET 1 po BID x 10 days 16/03/22 AUGMENTIN 875-125 MG ORAL TABLET 990594 AMOXICILLIN-POT CLAVULANATE Inactive PREDNISONE 20 MG ORAL TABLET 2 po qd x 5 days PREDNISONE 20 MG ORAL TABLET 070228 PREDNISONE Inactive AZITHROMYCIN 250 MG ORAL TABLET 2 po qd x 1 day, then 1 po q d x 4 days AZITHROMYCIN 250 MG ORAL TABLET 511320 AZITHROMY GIOVANNI Inactive PREDNISONE 50 MG ORAL TABLET Take 50 mg dialy for 6 day s 7 PREDNISONE 50 MG ORAL TABLET 917379 PREDNISONE Inactive AUGMENTIN 875-125 MG ORAL TABLET 1 po BID x 10 days 20 18/04/16 AUGMENTIN 875-125 MG ORAL TABLET 116731 AMOXICILLIN-POT CLAVULANATE Inactive Vital Signs Date Name [...] - Chem istry sodium, serum 139 mmol/L 746-470 1397/03/19 potassium, serum 3.6 mmol/L 3.5-5.2 chloride, serum 100 mmol/L 98-107 carbon dioxide, venous blood 30.3 mmol/L 21.0-32 .0 blood glucose 101 mg/dL 65-110 calcium, serum 9.4 mg/dL 8.5-10.1 urea nitrogen, blood 10 mg/dL 7-18 creatinine, serum 0.96 mg/dL 0.60-1.30 sodium, serum 139 mmol/L 234-073 7641/10/12 potassium, serum 3.8 mmol/L 3.5-5.2 chloride, serum 102 mmol/L 98-107 carbon dioxide, venous blood 29.4 mmol/L 21.0-32 .0 blood glucose 103 mg/dL 65-95 calcium, serum 8.8 mg/dL 8.5-10.1 urea nitrogen, blood 10 mg/dL 7-18 creatinine, serum 0.97 mg/dL 0.60-1.30 Estimated Glomerular Filtration Rate (calc) 62 (?) mL/min/1.73m2 = OR > 60 mL/min Encounters Code Encounter Date Provider Facility CPT-05230 Level 3 Est. Patient 09:46:49 [employer] David lion [facility] CPT-74211 32846-Oee Vst-Est Level III 11:12:16 CDT Yanet Bess DO [facility] CPT-66497 Level 3 Est. Patient 11:34:49 [employer] Perez Mora MD [facility] CPT-38222 Level 4 Est. Patient 09:51:32 [employer] Carlton rich MD [facility]-84641 Level 3 Est. Patient 10:26:00 [employer] Elise Hitchcock [facility] CPT-62502 Level 3 Est. Patient 13:35:41 [employer] Carlton rich MD [facility] CPT-37822 Level 3 Est. Patient 10:03:52 [employer] Carlton rich MD [facility] CPT-03770 Level 3 Est. Patient 12:17:50 CDT Hugo Restrepo MD [facility] CPT-41203 Level 3 Est. Patient 13:42:38 CDT Elise Hitchcock [facility] CPT-09728 Level 3 Est. Patient 13:23:51 CDT Diya cobian [facility] CPT-69230 Level 3 Est. Patient 14:22:19 [employer] Diay cobian [facility] CPT-24832 Level 3 Est. Patient 10:11:46 CDT Carlton rich MD [facility] CPT-00663 Level 3 Est. Patient 17:29:43 CDT Elise Are ll [facility] CPT-31183 Level 3 Est. Patient 11:58:06 CDT Elise Are ll [facility] CPT-62595 Level 4 Est. Patient 14:36:51 CDT Carlton rich MD [facility]-69875 Level 3 Est. Patient 18:16:00 [employer] Blaine Freeman [facility] CPT-52633 Level 3 Est. Patient 09:45:49 [employer] Carlton rich MD [facility] CPT-59623 Level 3 Est. Patient 13:19:20 CDT Carlton rich MD [facility] CPT-22811 Level 3 Est. Patient 13:06:43 CDT Ridge tam DO [facility] CPT-90003 Level 3 Est. Patient 10:03:07 CDT Perez Mora MD [facility] CPT-85774 Level 3 Est. Patient 19:50:35 [employer] Carlton rich MD [facility] CPT-48958 Level 4 Est. Patient 18:05:01 [employer] Carlton rich MD [facility] CPT-25704 Level 3 Est. Patient 10:45:55 [employer] Hugo Restrepo MD [facility] [place]-81120 Level 3 Est. Patient 14:12:49 CDT Griffin lincoln [facility] CPT-31592 Level 3 Est. Patient 17:37:24 CDT Carlton rich MD [facility] CPT-42636 Level 3 Est. Patient 16:51:54 CDT Carlton rich MD [facility] CPT-28841 Level 3 Est. Patient 12:18:11 CDT Hugo Restrepo MD [facility] CPT-40932 Level 3 Est. Patient 11:30:25 CDT Marcy crisostomo MD PhD [facility] CPT-46760 Level 3 Est. Patient 12:00:47 [employer] Carlton rich MD [facility] CPT-08759 Level 3 Est. Patient 16:31:06 [employer] Carlton rich MD [facility] [place]-21234 Level 3 Est. Patient 16:23:24 [employer] Ridge tam [facility] CPT-91849 Level 3 Est. Patient 12:34:12 CDT Carlton rich MD [facility] CPT-64220 Level 2 Est. Patient 15:43:33 CDT Robi armstrong MD [facility] CPT-36619 Level 4 Est. Patient 14:04:44 CDT Carlton rich MD [facility] CPT-50843 Level 3 Est. Patient 05:47:59 CDT Ridge tam [facility] CPT-94903 Level 3 Est. Patient 13:12:53 [employer] Carlton rich MD [facility] CPT-50622 Level 3 Est. Patient 14:26:53 CDT Hugo [...] CPT-J1100 Decadron 6mg (Dexamethasone) 14:32:13 CDT 2 CPT-21757 Hip bilat min 2V w AP pelvis 13:16:20 CDT 2 CPT-33452 Pelvis only 13:07:33 CDT CPT-75192 Spec Collection and Handling Fee 11:25:12 C DT CPT-88587 Fluzone Quadrivalent Intramuscular Suspe nsion 0.5 ML 14:31:55 CDT CPT-74698 Abx/Therapy Injection 13:28:47 [employer] CPT-J2930 Solu Medrol 125 mg (Methyl Prednisolone Sodium Succinate) 12:00:47 [employer] CPT-81676 Venipuncture Draw Fee 11:33:31 CDT CPT-86776 EKG Trac and Interp 11:21:09 CDT CPT-55293 Chest 2V Frontal and Lat 11:21:09 CDT 12/15 CPT-63073 Venipuncture Draw Fee 08:02:34 CDT CPT-81847 Chest 2V Frontal and Lat 05:47:59 CDT 06/05
--- OUTSIDE RECORDS SUMMARY | 2019-10-08 09:18 | XMS REPORT | Clinical Summary ---
Author Author Caitlin, Juliana Martinez Organization [employer] [facility] Address Unknown Phone Unavailable [...] bronchitis URI - acute 465.9 Resolved Hugo Restreop MD Acute upper respiratory infections of unspecified [...] URI 465.9 Inactive Ridge Bess DO Ac curyung upper respiratory infections of unspecified site Body [...] po q12hr PRN Cough HYDROCOD POLST-CHLORPHEN POLST [id number] Active David Marianne BODY MAN Active PREDNISONE 20 MG ORAL TABLET Take 2 tabs day 1 and 2 and 1 t ab days 3 and 4 PREDNISONE 09022720317 Active David Marianne BODY MAN Active DOXYCYCLINE HYCLATE 100 MG ORAL CAPSULE 1 cap by mouth twice latasha ly DOXYCYCLINE HYCLATE 76435290332 Active David Marianne BODY MAN Active TOPAMAX 100 MG ORAL TABLET Take 1 tablet po bid TOPIRAMATE 00409514302 No Longer Active David Marianne BODY MAN Active TUSSIONEX PENNKINETIC ER 10-8 MG/5ML ORAL SUSPENSION E XTENDED RELEASE 5ml po q12hr PRN Cough HYDROCOD POLST-CHLORPHEN POLST 5 6949119720 No Longer Active David Marianne BODY MAN Active AUGMENTIN 875-125 MG ORAL TABLET 1 po BID x 10 days 20 18/04/16 AMOXICILLIN-POT CLAVULANATE 37002016238 No Longer Active David Marianne BODY MAN Active PREDNISONE 50 MG ORAL TABLET Take 50 mg dialy for 6 day s 7 PREDNISONE 96322938449 No Longer Active David Lopes APRN Active TUSSIONEX PENNKINETIC ER 10-8 MG/5ML ORAL SUSPENSION E XTENDED RELEASE 5ml po q12hr PRN Cough HYDROCOD POLST-CHLORPHEN POLST 5 3273201602 No Longer Active Cherelle Torres RN Active PREDNISONE 20 MG ORAL TABLET two tabs by mouth today, then one tab by mouth days two and three and four PREDNISONE 70089428377 No Lo nger Active Cherelle Torres RN Active AZITHROMYCIN 250 MG ORAL TABLET 2 po qd x 1 day, then 1 po q d x 4 days AZITHROMYCIN 73044719848 No Longer Active Ridge Bess DO Active PREDNISONE 20 MG ORAL TABLET 2 po qd x 5 days P REDNISONE 79864720127 No Longer Active Perez Mora MD Active PROAIR HFA 108 (90 BASE) MCG/ACT INHALATION AEROSOL SO LUTION 2 puffs four times a day as needed ALBUTEROL SULFATE 77958673778 No Long er Active Becky AGUILARA Active ASPIRIN 81 MG ORAL TABLET 1 po qd ASPIRIN 95148767406 Active Carlton Hu MD Active PREDNISONE 20 MG ORAL TABLET 1 tab twice daily for 3 d ay, then one daily for three days PREDNISONE 32589839332 No Longer Active Carlton Hu MD Active AUGMENTIN 875-125 MG ORAL TABLET 1 po BID x 10 days 20 16/03/22 AMOXICILLIN-POT CLAVULANATE 60087224410 No Longer Active Elise Garcia APRN Active TERBINAFINE HCL 250 MG ORAL TABLET 1 qDay for nail fungus 7 TERBINAFINE HCL 15891680425 No Longer Active Carlton Hu MD A ctive AMOXICILLIN 500 MG ORAL CAPSULE 1 cap by mouth three times a day AMOXICILLIN 99426303235 No Longer Active Carlton Hu MD Active ELMIRON 100 MG ORAL CAPSULE 2 tablets in the am and 1 tablet at hs PENTOSAN POLYSULFATE SODIUM 50068526925 No Longer Active Robert Hu MD Active MUCINEX D 60-600 MG ORAL TABLET EXTENDED RELEASE 12 HOUR 1 t ab po q am PSEUDOEPHEDRINE-GUAIFENESIN 04270372795 No Longer Act nael Carlton Hu MD Active MUCINEX DM MAXIMUM STRENGTH 60-1200 MG ORAL TABLET EXT ENDED RELEASE 12 HOUR 1 tab po q am DEXTROMETHORPHAN-GUAIFENESIN 82226394251 No Longer Active Carlton Hu MD Active TUSSIONEX PENNKINETIC ER 10-8 MG/5ML ORAL SUSPENSION E XTENDED RELEASE 5ml po q12hr PRN Cough HYDROCOD POLST-CHLORPHEN POLST 5 0929520805 No Longer Active Carlton Hu MD Active POTASSIUM CHLORIDE ER 20 MEQ ORAL TABLET EXTENDED RELE ASE Take 1 by mouth 4 times daily for 7 days POTASSIUM CHLORIDE 81476026765 No Longer Active Carlton Hu MD Active ZITHROMAX 250 MG ORAL TABLET 2 po today, then 1 po q days 2-5 14/09/04 AZITHROMYCIN 73219915703 No Longer Active Eilse Garcia APRN Active TUSSIONEX PENNKINETIC ER 10-8 MG/5ML ORAL SUSPENSION E XTENDED RELEASE 5 ml twice a day as needed for cough HYDROCOD POLST-CHLORPH EN POLST 96933424343 No Longer Active Elise Garcia APRN Active MONTELUKAST SODIUM 10 MG ORAL TABLET 1 po daily for Allergy MONTELUKAST SODIUM 90313506935 Active Carlton Hu MD Ac tive TUSSIONEX PENNKINETIC ER 10-8 MG/5ML ORAL SUSPENSION E XTENDED RELEASE 5ml po q12hr PRN Cough HYDROCOD POLST-CHLORPHEN POLST 5 1028322302 No Longer Active Hugo Restrepo MD Active GABAPENTIN 100 MG ORAL CAPSULE 1 po BID for fibromyalgia GABAPENTIN 53729379146 Active Carlton Hu MD Active LYRICA 100 MG ORAL CAPSULE Take 1 tab po BID for fibromyalgia 20 11/08/21 PREGABALIN 46987776383 No Longer Active Elise Garcia APRN A ctive PREDNISONE 20 MG ORAL TABLET 2 tabs daily for 3 days, 1 tab daily for 3 days, 1/2 tab daily for 2 days PREDNISONE 82359957798 No Longer Active Jillina Frakerriel BODY MAN Active TUSSIONEX PENNKINETIC ER 10-8 MG/5ML ORAL SUSPENSION E XTENDED RELEASE 5 mL PO q 12 hrs PRN cough HYDROCOD POLST-CHLORPHEN POLST 571771 73498 No Longer Active Jillina Frazell BODY MAN Active FLUTICASONE PROPIONATE 50 MCG/ACT NASAL SUSPENSION 2 s prays each nostril daily until bottle is empty FLUTICASONE PROPIONATE 107342821 99 No Longer Active Jillina Frazell BODY MAN Active ASMANEX 60 METERED DOSES 220 MCG/INH INHALATION AEROSO L POWDER BREATH ACTIVATED 1 puff bid with rinse after MOMETASONE FUROATE 7085779 4102 No Longer Active Jillina Frakerriel BODY MAN Active ZITHROMAX Z-REYNA 250 MG ORAL TABLET 2 today, then 1 daily for 4 d ays AZITHROMYCIN 65213484905 No Longer Active Elise Garcia BODY MAN Active TUSSIONEX PENNKINETIC ER 10-8 MG/5ML ORAL SUSPENSION E XTENDED RELEASE 5ml po q12hr PRN Cough HYDROCOD POLST-CHLORPHEN POLST 5 5372916642 No Longer Active Elise Garcia BODY MAN Active PREDNISONE 20 MG ORAL TABLET 2 tabs daily for 3 days, 1 tab daily for 3 days, 1/2 tab daily for 2 days PREDNISONE 47033029829 No Longer Active Jillina Frazell BODY MAN Active AMOXICILLIN 500 MG ORAL CAPSULE 2 po BID x 10 days 201 09/29/08 AMOXICILLIN 56947679544 No Longer Active Jillina Frazell BODY MAN Act nael SINGULAIR 10 MG ORAL TABLET 1 po qday for allergies 20 14/01/12 MONTELUKAST SODIUM 34583180737 No Longer Active Carlton Hu MD Active LEVAQUIN 500 MG ORAL TABLET 1 tablet by mouth daily 20 13/09/24 LEVOFLOXACIN 25505982699 No Longer Active Carlton Hu MD Acti ve FLUTICASONE PROPIONATE 50 MCG/ACT NASAL SUSPENSION 2 s prays each nostril daily for 2 weeks, then 1 spray each nostril daily. FLUTICASONE PROPIONATE 72485834909 Active ALFREDO Holly Active ZITHROMAX 250 MG ORAL TABLET 2 po today, then 1 po q days 2-5 20 13/08/10 AZITHROMYCIN 80953772450 No Longer Active Elise Garcia APRN Active XANAX 0.5 MG ORAL TABLET one tablet by mouth daily prn anxiety 2015 ALPRAZOLAM 30449527537 Active ALFREDO Holly Active CYMBALTA 30 MG ORAL CAPSULE DELAYED RELEASE PARTICLES 1 cap by mouth daily for depression DULOXETINE HCL 02970340716 Active ALFREDO Holly Active CEFDINIR 300 MG ORAL CAPSULE 1 po BID x 10 days CEFDINIR 26738480103 No Longer Active Carlton Hu MD Active ZOCOR 40 MG ORAL TABLET 1 tab by mouth daily SI MVASTATIN 83059181231 No Longer Active Carlton Hu MD Active CYCLOBENZAPRINE HCL 10 MG ORAL TABLET 1 tablet by mouth BID prn had pain CYCLOBENZAPRINE HCL 96094772971 No Longer Active Jayden Hu MD Active LEVOFLOXACIN 500 MG ORAL TABLET 1 tab PO daily x 10 days LEVOFLOXACIN 51232411783 No Longer Active Carlton Hu MD Acti ve PREDNISONE 20 MG ORAL TABLET 3 tab PO qd x 2d, 2 tab P O qd x 2d, 1 tab PO qd x 2d, 1/2 tab PO qd x 2d PREDNISONE 48952376407 No Lo nger Active Carlton Hu MD Active FLUTICASONE PROPIONATE 50 MCG/ACT NASAL SUSPENSION 1 t o 2 sprays each nostril daily FLUTICASONE PROPIONATE 78748301037 No Longer Ac tive Blaine HERNANDEZ Active CHERATUSSIN AC 100-10 MG/5ML ORAL SYRUP 1 tsp by mouth every 4 hours as needed for cough GUAIFENESIN-CODEINE 81625620860 No Longe r Active Blaine HERNANDEZ Active PROMETHAZINE-CODEINE 6.25-10 MG/5ML ORAL SYRUP 1 tsp b y mouth every 6 hours if needed for cough PROMETHAZINE-CODEINE 66296408184 No Longer Active Blaine HERNANDEZ Active CHERATUSSIN AC 100-10 MG/5ML ORAL SYRUP 1 tsp by mouth every 4 hours as needed for cough GUAIFENESIN-CODEINE 75490707691 No Longe r Active Blaine HERNANDEZ Active ZITHROMAX Z-REYNA 250 MG ORAL TABLET 2 today, then 1 daily for 4 d ays AZITHROMYCIN 25864612426 No Longer Active Columba Raida Act nael ZITHROMAX 250 MG ORAL TABLET 2 po today, then 1 po q days 2-5 20 14/03/21 AZITHROMYCIN 20836033555 No Longer Active Carlton Hu MD Active ZITHROMAX Z-REYNA 250 MG ORAL TABLET 2 today, then 1 daily for 4 d ays AZITHROMYCIN 89782634854 No Longer Active Columba Raida Act nael AUGMENTIN 875-125 MG ORAL TABLET 1 po BID x 10 days 13/01/20 AMOXICILLIN-POT CLAVULANATE 39820441009 No Longer Active Diya De Guzman APRN Active ZITHROMAX 250 MG ORAL TABLET 2 po today, then 1 po q days 2-5 20 12/08/14 AZITHROMYCIN 14633404017 No Longer Active Carlton Hu MD Active TRAMADOL HCL 50 MG ORAL TABLET 1 po tid with ES Tylenol TRAMADOL HCL 94820098250 Active Adrienne Galvez LPN Active PREMARIN 0.625 MG ORAL TABLET TAKE 1 TAB BY MOUTH DAILY ESTROGENS CONJUGATED 27531209486 No Longer Active Ridge Bess DO A ctive CYMBALTA 30 MG ORAL CAPSULE DELAYED RELEASE PARTICLES 1 cap by mouth daily DULOXETINE HCL 31533024648 No Longer Active Ridge Ya ee DO Active AMOXICILLIN 500 MG ORAL CAPSULE 1 tab by mouth 3 times daily x 10 days AMOXICILLIN 60728615218 No Longer Active Carlton bustamante MD Active AMOXICILLIN 500 MG ORAL CAPSULE 1 tab by mouth 3 times daily x 10 days AMOXICILLIN 76347656540 No Longer Active Carlton bustamante MD Active PROMETHAZINE-CODEINE 6.25-10 MG/5ML ORAL SYRUP 1 tsp b y mouth every 8 hours prn cough PROMETHAZINE-CODEINE 37914800846 No Longer Acti ve Carlton Hu MD Active MEDROL 4 MG ORAL TABLET THERAPY PACK 6 pills x 1 day, then 5 pills x 1 day then 4 pills x 1 day, then 3 pills x 1 day, then 2 pills x 1 day, then 1 pill x 1 day, then stop METHYLPREDNISOLONE 38423782872 No Long er Active Perez Mora MD Active AZITHROMYCIN 250 MG ORAL TABLET 2 po qd x 1 day, then 1 po q d x 4 days AZITHROMYCIN 07061605207 No Longer Active Perez Ambriz MD Active SYMBICORT 160-4.5 MCG/ACT INHALATION AEROSOL 2 puffs bid wit h rinse after BUDESONIDE-FORMOTEROL FUMARATE 70207765564 N o Longer Active Perez Mora MD Active LYRICA 75 MG ORAL CAPSULE TAKE 1 CAPSULE BY MOUTH TWICE DAILY PREGABALIN 80388691693 No Longer Active Carlton Hu MD Acti ve TOPAMAX 25 MG ORAL TABLET 1 qHS x 1 week, then 1 BID x 1 week, then 1 qAM and 2 qHS x 1 week, then 2 BID (migraine prevention) T OPIRAMATE 72433116059 No Longer Active Jerica FUENTES Active TOPAMAX 50 MG ORAL TABLET take 1 tab po BID for migraines. 07/02 TOPIRAMATE 80604459830 No Longer Active Jerica FUENTES Active TRIAMCINOLONE ACETONIDE 0.1 % EXTERNAL CREAM apply three roger es daily prn rash TRIAMCINOLONE ACETONIDE 08026824337 No Longer Active Carlton Hu MD Active PAXIL 40 MG ORAL TABLET take 1 tab po qday for depression 0 PAROXETINE HCL 85719026029 Active ALFREDO Holly Active CHERATUSSIN AC 100-10 MG/5ML ORAL SYRUP 5ml po q6hr PRN Cough 20 13/04/14 GUAIFENESIN-CODEINE 06101177802 No Longer Active Carlton Hu MD Active MEDROL 4 MG ORAL TABLET THERAPY PACK 6 tabs on day 1, 5 tabs on day 2, 4 tabs on day 3, 3 tabs on day 4, 2 tabs on day 5, 1 tab on day 6 2013 METHYLPREDNISOLONE 51575514049 No Longer Active Perez Mora MD Active AZITHROMYCIN 250 MG ORAL TABLET 2 po qd x 1 day, then 1 po q d x 4 days AZITHROMYCIN 16892888015 No Longer Active Perez Ambriz MD Active PROPRANOLOL HCL 60 MG ORAL TABLET 1 PO Q D PROPRANOLOL HCL 65110909650 No Longer Active Perez Moar MD Activ e CHERATUSSIN AC 100-10 MG/5ML ORAL SYRUP take one tsp po Q 6h ours prn cough GUAIFENESIN-CODEINE 20775758923 No Longer Active Zia Mora MD Active AUGMENTIN 875-125 MG ORAL TABLET 1 tab by mouth twice daily with food AMOXICILLIN-POT CLAVULANATE 66155699137 No Longer Act nael Perez Mora MD Active CHERATUSSIN AC 100-10 MG/5ML ORAL SYRUP 1 tsp by mouth every 4 hours as needed for cough GUAIFENESIN-CODEINE 83791272497 No Longe r Active Hugo Restrepo MD Active ACETAMINOPHEN-CODEINE #3 300-30 MG ORAL TABLET 1 PO Q 4-6 HRS NM N PAIN ACETAMINOPHEN-CODEINE 49001339426 No Longer Active Hugo Restrepo MD Active LEVAQUIN 500 MG ORAL TABLET take one po QD LEVO FLOXACIN 63708810487 No Longer Active Griffin HERNANDEZ Active PREDNISONE 20 MG ORAL TABLET Take 3 tabs daily for 3 d ays, 2 tabs daily for 3 days, 1 tab daily for 3 days, 1/2 tab daily for 3 days 11/07 PREDNISONE 70122364754 No Longer Active Carlton Hu MD Acti ve AVELOX 400 MG ORAL TABLET 1 tab by mouth daily MOXIFLOXACIN HCL 83115435460 No Longer Active Carlton Hu MD Active CHERATUSSIN AC 100-10 MG/5ML ORAL SYRUP 1 tsp by mouth every 4 hours as needed for cough GUAIFENESIN-CODEINE 57343906972 No Longe r Active Hugo Restrepo MD Active AVELOX 400 MG ORAL TABLET 1 tab by mouth daily MOXIFLOXACIN HCL 13148163606 No Longer Active Marcy De La Rosa MD PhD Active TERBINAFINE HCL 250 MG ORAL TABLET 1 qDay T ERBINAFINE HCL 09664325807 No Longer Active Marcy De La Rosa MD PhD Active CHERATUSSIN AC 100-10 MG/5ML ORAL SYRUP 1 tsp by mouth every 4 hours as needed for cough GUAIFENESIN-CODEINE 90448583707 No Longe r Active Marcy De La Rosa MD PhD Active AVELOX 400 MG ORAL TABLET 1 tab by mouth daily MOXIFLOXACIN HCL 48762681579 No Longer Active Marcy De La Rosa MD PhD Active HYDROCODONE-ACETAMINOPHEN 5-325 MG ORAL TABLET 1 po q 6hr PRN co ugh HYDROCODONE-ACETAMINOPHEN 72615204679 No Longer Active Marcy De La Rosa MD PhD Active PREDNISONE 20 MG ORAL TABLET 2 tabs daily for 3 days, 1 tab daily for 3 days, 1/2 tab daily for 2 days PREDNISONE 99987753311 No Longer Active Carlton Hu MD Active CEFDINIR 300 MG ORAL CAPSULE by mouth twice a day 2011 CEFDINIR 86213361914 No Longer Active Carlton Hu MD Acti ve HYDROCHLOROTHIAZIDE 25 MG ORAL TABLET 1 TAB PO DAILY HYDROCHLOROTHIAZIDE 12580128158 Active ALFREDO Holly Ac tive ACETAMINOPHEN-CODEINE #3 300-30 MG ORAL TABLET 1 tablet po q 4-6 hrs prn pain ACETAMINOPHEN-CODEINE 46335029353 No Longer Active Ridge Bess DO Active ZITHROMAX 250 MG ORAL TABLET 2 po today, then 1 po q days 2-5 20 03/07/07 AZITHROMYCIN 50860600882 No Longer Active Carlton Hu MD Active CHERATUSSIN AC 100-10 MG/5ML ORAL SYRUP take 1 tsp po q4-6 h ours prn cough GUAIFENESIN-CODEINE 72926879671 No Longer Active Jayden Hu MD Active ACETAMINOPHEN-CODEINE #3 300-30 MG ORAL TABLET 1 PO Q 4-6 HR PRN PAIN ACETAMINOPHEN-CODEINE 14579379522 No Longer Active Da raimundo Hu MD Active LORTAB 7.5-500 MG/15ML ORAL ELIXIR 7.5 ml po q 4 hour prn cough HYDROCODONE-ACETAMINOPHEN 38136046692 No Longer Active Carlton Hu MD Active PREDNISONE 20 MG ORAL TABLET 1 po bid 3 days, then 1 po q day 3 days PREDNISONE 26330937073 No Longer Active Carlton Hu MD Active CEFDINIR 300 MG ORAL CAPSULE by mouth twice a day 2011 CEFDINIR 61512168156 No Longer Active Carlton Hu MD Acti ve CEFDINIR 300 MG ORAL CAPSULE by mouth twice a day 2010 CEFDINIR 48278490142 No Longer Active Carlton Hu MD Acti ve CEFDINIR 300 MG ORAL CAPSULE by mouth twice a day 2010 CEFDINIR 16258987536 No Longer Active Carlton Hu MD Acti ve TESSALON PERLES 100 MG ORAL CAPSULE 1 tablet by mouth 3 times daily as needed for cough BENZONATATE 19832345398 No Longer Active Carlton Hu MD Active CEFDINIR 300 MG ORAL CAPSULE by mouth twice a day 2010 CEFDINIR 41585273303 No Longer Active Carlton Hu MD Acti ve ZITHROMAX Z-REYNA 250 MG ORAL TABLET 2 today, then 1 daily for 4 d ays AZITHROMYCIN 35797433319 No Longer Active Hugo Restrepo MD Active TESSALON PERLES 100 MG ORAL CAPSULE 1 tablet by mouth 3 times daily as needed for cough TESSALON PERLES 100 MG ORAL CAPSULE 69688 7 BENZONATATE Inactive PREDNISONE 20 MG ORAL TABLET 1 po bid 3 days, then 1 po q day 3 days PREDNISONE 20 MG ORAL TABLET 004787 PREDNISONE [place] ctive LORTAB 7.5-500 MG/15ML ORAL ELIXIR 7.5 [...] cough CHERATUSSIN AC 100-10 MG/5ML ORAL SYRUP 526452 GUAIFENESIN-CODEINE Inactive ACETAMINOPHEN-CODEINE #3 300-30 MG ORAL TABLET 1 tablet po q 4-6 hrs prn pain ACETAMINOPHEN-CODEINE #3 300-30 MG ORAL TABLET ACETAMINOPHEN-CODEINE Inactive HYDROCODONE-ACETAMINOPHEN 5-325 MG ORAL TABLET 1 po q 6hr PRN co ugh HYDROCODONE-ACETAMINOPHEN 5-325 MG ORAL TABLET 067031 HYDROCODONE-ACETAMINOPHEN Inactive AVELOX 400 MG ORAL TABLET 1 tab by mouth daily AVELOX 400 MG ORAL TABLET 473410 MOXIFLOXACIN HCL Inactive CHERATUSSIN AC 100-10 MG/5ML ORAL SYRUP 1 tsp by mouth every 4 hours as needed for cough CHERATUSSIN AC 100-10 MG/5ML ORAL SYRUP 9 06047 GUAIFENESIN-CODEINE Inactive TERBINAFINE HCL 250 MG ORAL TABLET 1 qDay 07/08 TERBINAFINE HCL 250 MG ORAL TABLET 918226 TERBINAFINE HCL Inactive CHERATUSSIN AC 100-10 MG/5ML ORAL SYRUP 1 tsp by mouth every 4 hours as needed for cough CHERATUSSIN AC 100-10 MG/5ML ORAL SYRUP 9 41523 GUAIFENESIN-CODEINE Inactive ACETAMINOPHEN-CODEINE #3 300-30 MG ORAL TABLET 1 PO Q 4-6 HRS NM N PAIN ACETAMINOPHEN-CODEINE #3 300-30 MG ORAL TABLET ACETAMINOPHEN-CODEINE Inactive CHERATUSSIN AC 100-10 MG/5ML ORAL SYRUP 1 tsp by mouth every 4 hours as needed for cough CHERATUSSIN AC 100-10 MG/5ML ORAL SYRUP 9 34296 GUAIFENESIN-CODEINE Inactive AUGMENTIN 875-125 MG ORAL TABLET 1 tab by mouth twice daily with food AUGMENTIN 875-125 MG ORAL TABLET 166737 AMOXICIL MADELINE-POT CLAVULANATE Inactive CHERATUSSIN AC 100-10 MG/5ML ORAL SYRUP take one tsp po Q 6h ours prn cough CHERATUSSIN AC 100-10 MG/5ML ORAL SYRUP 493873 GUAIFENESIN-CODEINE Inactive PROPRANOLOL HCL 60 MG ORAL TABLET 1 PO Q D PROPRANOLOL HCL 60 MG ORAL TABLET 873593 PROPRANOLOL HCL Inactive TOPAMAX 50 MG ORAL TABLET take 1 tab po BID for migraines. 07/02 TOPAMAX 50 MG ORAL TABLET 290822 TOPIRAMATE Inacti ve TOPAMAX 25 MG ORAL TABLET 1 qHS x 1 week, then 1 BID x 1 week, then 1 qAM and 2 qHS x 1 week, then 2 BID (migraine prevention) TOPAMAX 25 MG ORAL TABLET 561041 TOPIRAMATE Inactive LYRICA 75 MG ORAL CAPSULE TAKE 1 CAPSULE BY MOUTH TWICE DAILY LYRICA 75 MG ORAL CAPSULE PREGABALIN Inactive SYMBICORT 160-4.5 MCG/ACT INHALATION AEROSOL 2 puffs bid wit h rinse after SYMBICORT 160-4.5 MCG/ACT INHALATION AEROSOL BUDESONIDE- FORMOTEROL FUMARATE Inactive PROMETHAZINE-CODEINE 6.25-10 MG/5ML ORAL SYRUP 1 tsp b y mouth every 8 hours prn cough PROMETHAZINE-CODEINE 6.25-10 MG/ 5ML ORAL SYRUP 039524 PROMETHAZINE-CODEINE Inactive CYMBALTA 30 MG ORAL CAPSULE DELAYED RELEASE PARTICLES 1 cap by mouth daily CYMBALTA 30 MG ORAL CAPSULE DELAYED RELE ASE PARTICLES 359275 DULOXETINE HCL Inactive PREMARIN 0.625 MG ORAL TABLET TAKE 1 TAB BY MOUTH DAILY PREMARIN 0.625 MG ORAL TABLET ESTROGENS CONJUGATED Inactive CHERATUSSIN AC 100-10 MG/5ML ORAL SYRUP 1 tsp by mouth every 4 hours as needed for cough CHERATUSSIN AC 100-10 MG/5ML ORAL SYRUP 9 00418 GUAIFENESIN-CODEINE Inactive PROMETHAZINE-CODEINE 6.25-10 MG/5ML ORAL SYRUP 1 tsp b y mouth every 6 hours if needed for cough PROMETHAZINE-CODEINE 6.25-10 MG/5ML ORAL SYRUP 342532 PROMETHAZINE-CODEINE Inactive CHERATUSSIN AC 100-10 MG/5ML ORAL SYRUP 1 tsp by mouth every 4 hours as needed for cough CHERATUSSIN AC 100-10 MG/5ML ORAL SYRUP 9 69309 GUAIFENESIN-CODEINE Inactive FLUTICASONE PROPIONATE 50 MCG/ACT NASAL SUSPENSION 1 t o 2 sprays each nostril daily FLUTICASONE PROPIONATE 50 MCG/AC T NASAL SUSPENSION 8637793 FLUTICASONE PROPIONATE Inactive PREDNISONE 20 MG ORAL TABLET 3 tab PO qd x 2d, 2 tab P O qd x 2d, 1 tab PO qd x 2d, 1/2 tab PO qd x 2d PREDNISONE 20 MG ORAL TAB LET 209739 PREDNISONE Inactive LEVOFLOXACIN 500 MG ORAL TABLET 1 tab PO daily x 10 days LEVOFLOXACIN 500 MG ORAL TABLET 944641 LEVOFLOXACIN Inactive CYCLOBENZAPRINE HCL 10 MG ORAL TABLET 1 tablet by mouth BID prn had pain CYCLOBENZAPRINE HCL 10 MG ORAL TABLET 915960 CYCLOBENZAPRINE HCL Inactive ZOCOR 40 MG ORAL TABLET 1 tab by mouth daily 4 ZOCOR 40 MG ORAL TABLET 906004 SIMVASTATIN Inactive TUSSIONEX PENNKINETIC ER 10-8 MG/5ML [...] FLUTICASONE PROPIO EFE 50 MCG/ACT NASAL SUSPENSION 0919041 FLUTICASONE PROPIONATE Inactive TUSSIONEX PENNKINETIC ER 10-8 [...] three days PREDNISONE 20 MG ORAL TABLET 913574 PREDNIS ONE Inactive PROAIR HFA 108 (90 BASE) MCG/ACT INHALATION AEROSOL SO LUTION 2 puffs four times a day as needed PROAIR HFA 108 (90 B ASE) MCG/ACT INHALATION AEROSOL SOLUTION ALBUTEROL SULFATE Inactive PREDNISONE 20 MG ORAL TABLET two tabs by mouth today, then one tab by mouth days two and three and four PREDNISONE 20 MG ORAL TAB LET 461590 PREDNISONE Inactive TUSSIONEX PENNKINETIC ER 10-8 MG/5ML [...] bid 04/20 TOPAMAX 100 MG ORAL TABLET 941085 TOPIRAMATE Inactive ZITHROMAX Z-REYNA 250 MG ORAL TABLET 2 today, then 1 daily for 4 d ays ZITHROMAX Z-REYNA 250 MG ORAL TABLET 082764 AZITHROMYCIN Inactive CEFDINIR 300 MG ORAL CAPSULE [...] 20 03/07/07 ZITHROMAX 250 MG ORAL TABLET 686869 AZITHROMYCIN [place] ctive CEFDINIR 300 MG ORAL CAPSULE by mouth twice a day 2011 CEFDINIR 300 MG ORAL CAPSULE 221452 CEFDINIR Inactive PREDNISONE 20 MG ORAL TABLET 2 tabs daily for 3 days, 1 tab daily for 3 days, 1/2 tab daily for 2 days PREDNISONE 20 MG ORAL T ABLET 141334 PREDNISONE Inactive AVELOX 400 MG ORAL TABLET 1 tab by mouth daily AVELOX 400 MG ORAL TABLET 445309 MOXIFLOXACIN HCL Inactive AVELOX 400 MG ORAL TABLET 1 tab by mouth daily AVELOX 400 MG ORAL TABLET 992064 MOXIFLOXACIN HCL Inactive PREDNISONE 20 MG ORAL TABLET Take 3 tabs daily for 3 d ays, 2 tabs daily for 3 days, 1 tab daily for 3 days, 1/2 tab daily for 3 days 11/07 PREDNISONE 20 MG ORAL TABLET 086082 PREDNISONE Inactive LEVAQUIN 500 MG ORAL TABLET take one po QD LEVAQUIN 500 MG ORAL TABLET 896696 LEVOFLOXACIN Inactive AZITHROMYCIN 250 MG ORAL TABLET 2 po qd x 1 day, then 1 po q d x 4 days AZITHROMYCIN 250 MG ORAL TABLET 285199 AZITHROMY GIOVANNI Inactive MEDROL 4 MG ORAL TABLET THERAPY PACK 6 tabs on day 1, 5 tabs on day 2, 4 tabs on day 3, 3 tabs on day 4, 2 tabs on day 5, 1 tab on day 6 2013 MEDROL 4 MG ORAL TABLET THERAPY PACK 791181 METHYLPREDNISOLONE [place] ctive CHERATUSSIN AC 100-10 MG/5ML ORAL SYRUP 5ml po q6hr PRN Cough 20 13/04/14 CHERATUSSIN AC 100-10 MG/5ML ORAL SYRUP 847831 GUAIFENE SIN-CODEINE Inactive TRIAMCINOLONE ACETONIDE 0.1 % EXTERNAL CREAM apply three roger es daily prn rash TRIAMCINOLONE ACETONIDE 0.1 % EXTERNAL CREAM 101 4314 TRIAMCINOLONE ACETONIDE Inactive AZITHROMYCIN 250 MG ORAL TABLET 2 po qd x 1 day, then 1 po q d x 4 days AZITHROMYCIN 250 MG ORAL TABLET 091069 AZITHROMY GIOVANNI Inactive MEDROL 4 MG ORAL TABLET THERAPY PACK 6 pills x 1 day, then 5 pills x 1 day then 4 pills x 1 day, then 3 pills x 1 day, then 2 pills x 1 day, then 1 pill x 1 day, then stop MEDROL 4 MG ORAL TABLET THERAPY PACK 672235 METHYLPREDNISOLONE Inactive AMOXICILLIN 500 MG ORAL CAPSULE 1 tab by mouth 3 times daily x 10 days AMOXICILLIN 500 MG ORAL CAPSULE 010150 AMOXICILL IN Inactive AMOXICILLIN 500 MG ORAL CAPSULE 1 tab by mouth 3 times daily x 10 days AMOXICILLIN 500 MG ORAL CAPSULE 398482 AMOXICILL IN Inactive ZITHROMAX 250 MG ORAL TABLET 2 po today, then 1 po q days 2-5 20 12/08/14 ZITHROMAX 250 MG ORAL TABLET 121471 AZITHROMYCIN Greer ctive AUGMENTIN 875-125 MG ORAL TABLET 1 po BID x 10 days 20 13/01/20 AUGMENTIN 875-125 MG ORAL TABLET 115721 AMOXICILLIN-POT CLAVULANATE Inactive ZITHROMAX Z-REYNA 250 MG ORAL TABLET 2 today, then 1 daily for 4 d ays ZITHROMAX Z-REYNA 250 MG ORAL TABLET 576777 AZITHROMYCIN Inactive ZITHROMAX 250 MG ORAL TABLET 2 po today, then 1 po q days 2-5 20 14/03/21 ZITHROMAX 250 MG ORAL TABLET 305581 AZITHROMYCIN Greer ctive ZITHROMAX Z-REYNA 250 MG ORAL TABLET 2 today, then 1 daily for 4 d ays ZITHROMAX Z-REYNA 250 MG ORAL TABLET 467457 AZITHROMYCIN Inactive CEFDINIR 300 MG ORAL CAPSULE 1 po BID x 10 days 06/21 CEFDINIR 300 MG ORAL CAPSULE 136147 CEFDINIR Inactive ZITHROMAX 250 MG ORAL TABLET 2 po today, then 1 po q days 2-5 20 13/08/10 ZITHROMAX 250 MG ORAL TABLET 887071 AZITHROMYCIN Greer ctive LEVAQUIN 500 MG ORAL TABLET 1 tablet by mouth daily 13/09/24 LEVAQUIN 500 MG ORAL TABLET 747254 LEVOFLOXACIN Inactive SINGULAIR 10 MG ORAL TABLET 1 po qday for allergies 20 14/01/12 SINGULAIR 10 MG ORAL TABLET 884861 MONTELUKAST SODIUM Inactive AMOXICILLIN 500 MG ORAL CAPSULE 2 po BID x 10 days 201 09/29/08 AMOXICILLIN 500 MG ORAL CAPSULE 853713 AMOXICILLIN Inactive PREDNISONE 20 MG ORAL TABLET 2 tabs daily for 3 days, 1 tab daily for 3 days, 1/2 tab daily for 2 days PREDNISONE 20 MG ORAL T ABLET 895896 PREDNISONE Inactive ZITHROMAX Z-REYNA 250 MG ORAL TABLET 2 today, then 1 daily for 4 d ays ZITHROMAX Z-REYNA 250 MG ORAL TABLET 043660 AZITHROMYCIN Inactive PREDNISONE 20 MG ORAL TABLET 2 tabs daily for 3 days, 1 tab daily for 3 days, 1/2 tab daily for 2 days PREDNISONE 20 MG ORAL T ABLET 614449 PREDNISONE Inactive ZITHROMAX 250 MG ORAL TABLET 2 po today, then 1 po q days 2-5 20 14/09/04 ZITHROMAX 250 MG ORAL TABLET 668150 AZITHROMYCIN [place] [facility] AMOXICILLIN 500 MG ORAL CAPSULE 1 cap by mouth three times a day AMOXICILLIN 500 MG ORAL CAPSULE 680180 AMOXICILLIN Inactive TERBINAFINE HCL 250 MG ORAL TABLET 1 qDay for nail fungus 7 TERBINAFINE HCL 250 MG ORAL TABLET 588003 TERBINAFINE HCL Inact nael AUGMENTIN 875-125 MG ORAL TABLET 1 po BID x 10 days 16/03/22 AUGMENTIN 875-125 MG ORAL TABLET 998026 AMOXICILLIN-POT CLAVULANATE Inactive PREDNISONE 20 MG ORAL TABLET 2 po qd x 5 days PREDNISONE 20 MG ORAL TABLET 008475 PREDNISONE Inactive AZITHROMYCIN 250 MG ORAL TABLET 2 po qd x 1 day, then 1 po q d x 4 days AZITHROMYCIN 250 MG ORAL TABLET 394640 AZITHROMY GIOVANNI Inactive PREDNISONE 50 MG ORAL TABLET Take 50 mg dialy for 6 day s 7 PREDNISONE 50 MG ORAL TABLET 462066 PREDNISONE Inactive AUGMENTIN 875-125 MG ORAL TABLET 1 po BID x 10 days 20 18/04/16 AUGMENTIN 875-125 MG ORAL TABLET 399681 AMOXICILLIN-POT CLAVULANATE Inactive Vital Signs Date Name [...] - Chem istry sodium, serum 139 mmol/L 647-118 6963/03/19 potassium, serum 3.6 mmol/L 3.5-5.2 chloride, serum 100 mmol/L 98-107 carbon dioxide, venous blood 30.3 mmol/L 21.0-32 .0 blood glucose 101 mg/dL 65-110 calcium, serum 9.4 mg/dL 8.5-10.1 urea nitrogen, blood 10 mg/dL 7-18 creatinine, serum 0.96 mg/dL 0.60-1.30 sodium, serum 139 mmol/L 584-767 8551/10/12 potassium, serum 3.8 mmol/L 3.5-5.2 chloride, serum 102 mmol/L 98-107 carbon dioxide, venous blood 29.4 mmol/L 21.0-32 .0 blood glucose 103 mg/dL 65-95 calcium, serum 8.8 mg/dL 8.5-10.1 urea nitrogen, blood 10 mg/dL 7-18 creatinine, serum 0.97 mg/dL 0.60-1.30 Estimated Glomerular Filtration Rate (calc) 62 (?) mL/min/1.73m2 = OR > 60 mL/min Encounters Code Encounter Date Provider Facility CPT-32242 Level 3 Est. Patient 09:46:49 [employer]PECTION TEAM LEADER David lion [facility] CPT-13693 [id number] Vst-Est Level III 11:12:16 CDT Yanet Bess DO [facility] CPT-72223 Level 3 Est. Patient 11:34:49 BRIDGE/STRUCTURE INSPECTION TEAM LEADER Perez Mora MD [facility] CPT-35556 Level 4 Est. Patient 09:51:32 BRIDGE/STRUCTURE INSPECTION TEAM LEADER Carlton rich MD [facility]-[id number] Level 3 Est. Patient 10:26:00 BRIDGE/STRUCTURE INSPECTION TEAM LEADER Elise [facility] CPT-73287 Level 3 Est. Patient 13:35:41 BRIDGE/STRUCTURE INSPECTION TEAM LEADER Carlton rich MD [facility] CPT-23275 Level 3 Est. Patient 10:03:52 BRIDGE/STRUCTURE INSPECTION TEAM LEADER Carlton rich MD [facility] CPT-73049 Level 3 Est. Patient 12:17:50 CDT Hugo Restrepo MD [facility] CPT-94981 Level 3 Est. Patient 13:42:38 CDT Elise [facility] CPT-91172 Level 3 Est. Patient 13:23:51 CDT Diya cobian [facility] CPT-06169 Level 3 Est. Patient 14:22:19 BRID[employer]STRUCTURE INSPECTION TEAM LEADER Diya cobian [facility] CPT-69430 Level 3 Est. Patient 10:11:46 CDT Carlton rich MD [facility] CPT-85214 Level 3 Est. Patient 17:29:43 CDT Elise Are ll [facility] CPT-99078 Level 3 Est. Patient 11:58:06 CDT Elise Are ll [facility] CPT-31858 Level 4 Est. Patient 14:36:51 CDT Carlton rich MD [facility]-45730 Level 3 Est. Patient 18:16:00 BRIDGE/STRUCTURE INSPECTION TEAM LEADER Blaine Freeman [facility] CPT-79084 Level 3 Est. Patient 09:45:49 BRIDGE/STRUCTURE INSPECTION TEAM LEADER Carlton rich MD [facility] CPT-53050 Level 3 Est. Patient 13:19:20 CDT Carlton rich MD [facility] CPT-43340 Level 3 Est. Patient 13:06:43 CDT Ridge tam DO [facility] CPT-28090 Level 3 Est. Patient 10:03:07 CDT Perez Mora MD [facility] CPT-77229 Level 3 Est. Patient 19:50:35 BRID[employer]STRUCTURE INSPECTION TEAM LEADER Carlton irch MD [facility] CPT-53847 Level 4 Est. Patient 18:05:01 BRIDGE/STRUCTURE INSPECTION TEAM LEADER Carlton rich MD [facility] CPT-91178 Level 3 Est. Patient 10:45:55 BRIDGE/STRUCTURE INSPECTION TEAM LEADER Hugo Restrepo MD [facility] [place]-[id number] Level 3 Est. Patient 14:12:49 CDT Griffin lincoln [facility] CPT-13721 Level 3 Est. Patient 17:37:24 CDT Carlton rich MD [facility] CPT-09194 Level 3 Est. Patient 16:51:54 CDT Carlton rich MD [facility] CPT-35843 Level 3 Est. Patient 12:18:11 CDT Hugo Restrepo MD [facility] CPT-32963 Level 3 Est. Patient 11:30:25 CDT Marcy crisostomo MD PhD [facility] CPT-44181 Level 3 Est. Patient 12:00:47 BRIDGE/STRUCTURE INSPECTION TEAM LEADER Carlton rich MD [facility] CPT-32068 Level 3 Est. Patient 16:31:06 BRIDGE/STRUCTURE INSPECTION TEAM LEADER Carlton rich MD [facility] [place]-[id number] Level 3 Est. Patient 16:23:24 BRIDGE/STRUCTURE INSPECTION TEAM LEADER Ridge tam [facility] CPT-01903 Level 3 Est. Patient 12:34:12 CDT Carlton rich MD [facility] CPT-05317 Level 2 Est. Patient 15:43:33 CDT Robi armstrong MD [facility] CPT-97022 Level 4 Est. Patient 14:04:44 CDT Carlton rich MD [facility] CPT-04296 Level 3 Est. Patient 05:47:59 CDT Ridge tam [facility] CPT-03999 Level 3 Est. Patient 13:12:53 BRIDGE/STRUCTURE INSPECTION TEAM LEADER Carlton rich MD [facility] CPT-71731 Level 3 Est. Patient 14:26:53 CDT Hugo Restrepo MD [facility] Procedures Code Procedure Name Date Entry Date Standard Desc ription CPT-000 Give Appropriate Flu Vaccine 14:14:31 CDT 2 CPT-J1040 Depo Medrol 80 mg (Methyl Prednisolone A cetate) 10:42:44 CDT CPT-J1100 Decadron 8mg (Dexamethasone) 10:42:44 CDT 2 CPT-J0696 Rocephin 1gm Inj Solr 14:32:13 CDT CPT-J1020 Depo Medrol 60 mg (Methyl Prednisolone A cetate) 14:32:13 CDT CPT-J1100 Decadron 6mg (Dexamethasone) 14:32:13 CDT 2 CPT-35611 Hip bilat min 2V w AP pelvis 13:16:20 CDT 2 CPT-85113 Pelvis only 13:07:33 CDT CPT-91544 Spec Collection and Handling Fee 11:25:12 C DT CPT-55801 Fluzone Quadrivalent Intramuscular Suspe nsion 0.5 ML 14:31:55 CDT CPT-28247 Abx/Therapy Injection 13:28:47 BRID[employer] INSPECTION TEAM LEADER CPT-J2930 Solu Medrol 125 mg (Methyl Prednisolone Sodium Succinate) 12:00:47 BRIDGE/STRUCTURE INSPECTION TEAM LEADER CPT-57644 Venipuncture Draw Fee 11:33:31 CDT CPT-28103 EKG Trac and Interp 11:21:09 CDT CPT-23264 Chest 2V Frontal and Lat 11:21:09 CDT 12/15 CPT-52782 Venipuncture Draw Fee 08:02:34 CDT CPT-28733 Chest 2V Frontal and Lat 05:47:59 CDT 06/05
--- OUTSIDE RECORDS SUMMARY | 2019-10-08 09:18 | XMS REPORT | Clinical Summary ---
Author Author Caitlin, Juliana Martinez Organization [facility] Address Unknown Phone Unavailable Allergies, Adverse Reactions, Alerts Allergy Name Reaction Description Start Date Severity Status Pr ovider No Known Allergies Mercy Torres RN Conditions or Problems Problem Name Problem [...] bronchitis URI - acute 465.9 Resolved Hugo Resterpo MD Acute upper respiratory infections of unspecified [...] Mass Index 35.0-35.9, adult BMI 34-34.9 Active Cherelle Torres RN Body Mass Index 35.0-35.9, adult Upper respiratory infection, viral 465.9 Active 2 Perez Mora MD Acute upper respiratory infections of un specified site Obesity Class I (BMI 30-34.9) Active Gabbie Torres RN Obesity, unspecified BRONCHITIS ICD-490 Inactive Hugo Restrepo [...] MD PhD 201 06/01/09 SINUSITIS ICD-473.9 Inactive aMrcy De La Rosa MD Ph D CONTACT [...] po q12hr PRN Cough HYDROCOD POLST-CHLORPHEN POLST 03141371366 Active Carlton Hu MD Active AUGMENTIN 875-125 MG ORAL TABLET 1 po BID x 10 days 18/04/16 AMOXICILLIN-POT CLAVULANATE 09117024872 Active David Marianne FRONT DESK MANAGER Active PREDNISONE 50 MG ORAL TABLET Take 50 mg dialy for 6 day s 7 PREDNISONE 66573296592 No Longer Active David Marianne FRONT DESK MANAGER Active TUSSIONEX PENNKINETIC ER 10-8 MG/5ML ORAL SUSPENSION E XTENDED RELEASE 5ml po q12hr PRN Cough HYDROCOD POLST-CHLORPHEN POLST 5 5715936225 No Longer Active Cherelle Torres RN Active PREDNISONE 20 MG ORAL TABLET two tabs by mouth today, then one tab by mouth days two and three and four PREDNISONE 30259628873 No Lo nger Active Cherelle Torres RN Active AZITHROMYCIN 250 MG ORAL TABLET 2 po qd x 1 day, then 1 po q d x 4 days AZITHROMYCIN 68051962269 No Longer Active Ridge Bess DO Active PREDNISONE 20 MG ORAL TABLET 2 po qd x 5 days P REDNISONE 93637932299 No Longer Active Perez Mora MD Active PROAIR HFA 108 (90 BASE) MCG/ACT INHALATION AEROSOL SO LUTION 2 puffs four times a day as needed ALBUTEROL SULFATE 43329784868 No Long er Active Becky FUENTES Active ASPIRIN 81 MG ORAL TABLET 1 po qd ASPIRIN 07078106809 Active Carlton Hu MD Active PREDNISONE 20 MG ORAL TABLET 1 tab twice daily for 3 d ay, then one daily for three days PREDNISONE 17943509292 No Longer Active Carlton Hu MD Active AUGMENTIN 875-125 MG ORAL TABLET 1 po BID x 10 days 16/03/22 AMOXICILLIN-POT CLAVULANATE 35887098548 No Longer Active Elise Garcia APRN Active TERBINAFINE HCL 250 MG ORAL TABLET 1 qDay for nail fungus 7 TERBINAFINE HCL 79764127920 No Longer Active Carlton Hu MD A ctive AMOXICILLIN 500 MG ORAL CAPSULE 1 cap by mouth three times a day AMOXICILLIN 46463565800 No Longer Active Carlton Hu MD Active ELMIRON 100 MG ORAL CAPSULE 2 tablets in the am and 1 tablet at hs PENTOSAN POLYSULFATE SODIUM 79654063567 No Longer Active Robert Hu MD Active MUCINEX D 60-600 MG ORAL TABLET EXTENDED RELEASE 12 HOUR 1 t ab po q am PSEUDOEPHEDRINE-GUAIFENESIN 59582655070 No Longer Act nael Carlton Hu MD Active MUCINEX DM MAXIMUM STRENGTH 60-1200 MG ORAL TABLET EXT ENDED RELEASE 12 HOUR 1 tab po q am DEXTROMETHORPHAN-GUAIFENESIN 22885357902 No Longer Active Carlton Hu MD Active TUSSIONEX PENNKINETIC ER 10-8 MG/5ML ORAL SUSPENSION E XTENDED RELEASE 5ml po q12hr PRN Cough HYDROCOD POLST-CHLORPHEN POLST 5 8956932135 No Longer Active Carlton Hu MD Active POTASSIUM CHLORIDE ER 20 MEQ ORAL TABLET EXTENDED RELE ASE Take 1 by mouth 4 times daily for 7 days POTASSIUM CHLORIDE 42460714630 No Longer Active Carlton Hu MD Active ZITHROMAX 250 MG ORAL TABLET 2 po today, then 1 po q days 2-5 20 14/09/04 AZITHROMYCIN 90572905567 No Longer Active Elise Garcia APRN Active TUSSIONEX PENNKINETIC ER 10-8 MG/5ML ORAL SUSPENSION E XTENDED RELEASE 5 ml twice a day as needed for cough HYDROCOD POLST-CHLORPH EN POLST 53765636374 No Longer Active Elise Garcia APRN Active MONTELUKAST SODIUM 10 MG ORAL TABLET 1 po daily for Allergy MONTELUKAST SODIUM 39196479848 Active Carlton Hu MD Ac tive TUSSIONEX PENNKINETIC ER 10-8 MG/5ML ORAL SUSPENSION E XTENDED RELEASE 5ml po q12hr PRN Cough HYDROCOD POLST-CHLORPHEN POLST 5 3525058243 No Longer Active Hugo Restrepo MD Active GABAPENTIN 100 MG ORAL CAPSULE 1 po BID for fibromyalgia GABAPENTIN 70042638885 Active Carlton Hu MD Active LYRICA 100 MG ORAL CAPSULE Take 1 tab po BID for fibromyalgia 20 11/08/21 PREGABALIN 74896514142 No Longer Active Elise Garcia APRN A ctive PREDNISONE 20 MG ORAL TABLET 2 tabs daily for 3 days, 1 tab daily for 3 days, 1/2 tab daily for 2 days PREDNISONE 07400424617 No Longer Active Diya De Guzman APRN Active TUSSIONEX PENNKINETIC ER 10-8 MG/5ML ORAL SUSPENSION E XTENDED RELEASE 5 mL PO q 12 hrs PRN cough HYDROCOD POLST-CHLORPHEN POLST 329783 59887 No Longer Active Jillina Daphnezell BILL Active FLUTICASONE PROPIONATE 50 MCG/ACT NASAL SUSPENSION 2 s prays each nostril daily until bottle is empty FLUTICASONE PROPIONATE 402397408 99 No Longer Active Jillina Cesarl FRONT DESK MANAGER Active ASMANEX 60 METERED DOSES 220 MCG/INH INHALATION AEROSO L POWDER BREATH ACTIVATED 1 puff bid with rinse after MOMETASONE FUROATE 7925916 4102 No Longer Active Diya De Guzman APRN Active ZITHROMAX Z-REYNA 250 MG ORAL TABLET 2 today, then 1 daily for 4 d ays AZITHROMYCIN 30540327514 No Longer Active Elise Garcia APRN Active TUSSIONEX PENNKINETIC ER 10-8 MG/5ML ORAL SUSPENSION E XTENDED RELEASE 5ml po q12hr PRN Cough HYDROCOD POLST-CHLORPHEN POLST 5 7025218620 No Longer Active Elise Garcia APRN Active PREDNISONE 20 MG ORAL TABLET 2 tabs daily for 3 days, 1 tab daily for 3 days, 1/2 tab daily for 2 days PREDNISONE 90906466274 No Longer Active Diya De Guzman APRN Active AMOXICILLIN 500 MG ORAL CAPSULE 2 po BID x 10 days 201 09/29/08 AMOXICILLIN 14926586355 No Longer Active Diya De Guzman APRN Act nael SINGULAIR 10 MG ORAL TABLET 1 po qday for allergies 20 14/01/12 MONTELUKAST SODIUM 65517856908 No Longer Active Carlton Hu MD Active LEVAQUIN 500 MG ORAL TABLET 1 tablet by mouth daily 20 13/09/24 LEVOFLOXACIN 19268896224 No Longer Active Carlton Hu MD Acti ve FLUTICASONE PROPIONATE 50 MCG/ACT NASAL SUSPENSION 2 s prays each nostril daily for 2 weeks, then 1 spray each nostril daily. FLUTICASONE PROPIONATE 04289164016 Active ALFREDO Holly Active ZITHROMAX 250 MG ORAL TABLET 2 po today, then 1 po q days 2-5 20 13/08/10 AZITHROMYCIN 23106678465 No Longer Active Elise Garcia APRN Active XANAX 0.5 MG ORAL TABLET one tablet by mouth daily prn anxiety 2015 ALPRAZOLAM 53777024219 Active ALFREDO Holly Active CYMBALTA 30 MG ORAL CAPSULE DELAYED RELEASE PARTICLES 1 cap by mouth daily for depression DULOXETINE HCL 28176261980 Active ALFREDO Holly Active CEFDINIR 300 MG ORAL CAPSULE 1 po BID x 10 days CEFDINIR 75949242472 No Longer Active Carlton Hu MD Active ZOCOR 40 MG ORAL TABLET 1 tab by mouth daily SI MVASTATIN 80036420948 No Longer Active Carlton Hu MD Active CYCLOBENZAPRINE HCL 10 MG ORAL TABLET 1 tablet by mouth BID prn had pain CYCLOBENZAPRINE HCL 48351625669 No Longer Active Jayden Hu MD Active LEVOFLOXACIN 500 MG ORAL TABLET 1 tab PO daily x 10 days LEVOFLOXACIN 41557785223 No Longer Active Carlton Hu MD Acti ve PREDNISONE 20 MG ORAL TABLET 3 tab PO qd x 2d, 2 tab P O qd x 2d, 1 tab PO qd x 2d, 1/2 tab PO qd x 2d PREDNISONE 24059803714 No Lo nger Active Carlton Hu MD Active FLUTICASONE PROPIONATE 50 MCG/ACT NASAL SUSPENSION 1 t o 2 sprays each nostril daily FLUTICASONE PROPIONATE 93605360419 No Longer Ac tive Blaine HERNANDEZ Active CHERATUSSIN AC 100-10 MG/5ML ORAL SYRUP 1 tsp by mouth every 4 hours as needed for cough GUAIFENESIN-CODEINE 22689981489 No Longe r Active Blaine HERNANDEZ Active PROMETHAZINE-CODEINE 6.25-10 MG/5ML ORAL SYRUP 1 tsp b y mouth every 6 hours if needed for cough PROMETHAZINE-CODEINE 20573296576 No Longer Active Blaine HERNANDEZ Active CHERATUSSIN AC 100-10 MG/5ML ORAL SYRUP 1 tsp by mouth every 4 hours as needed for cough GUAIFENESIN-CODEINE 21968536770 No Longe r Active Blaine HERNANDEZ Active ZITHROMAX Z-REYNA 250 MG ORAL TABLET 2 today, then 1 daily for 4 d ays AZITHROMYCIN 36085213076 No Longer Active Columba Raida Act nael ZITHROMAX 250 MG ORAL TABLET 2 po today, then 1 po q days 2-5 20 14/03/21 AZITHROMYCIN 35891001524 No Longer Active Carlton Hu MD Active ZITHROMAX Z-REYNA 250 MG ORAL TABLET 2 today, then 1 daily for 4 d ays AZITHROMYCIN 72848299248 No Longer Active Columba Raida Act nael AUGMENTIN 875-125 MG ORAL TABLET 1 po BID x 10 days 13/01/20 AMOXICILLIN-POT CLAVULANATE 43318162795 No Longer Active Diya De Guzman FRONT DESK MANAGER Active ZITHROMAX 250 MG ORAL TABLET 2 po today, then 1 po q days 2-5 12/08/14 AZITHROMYCIN 05384350895 No Longer Active Carlton Hu MD Active TRAMADOL HCL 50 MG ORAL TABLET 1 po tid with ES Tylenol TRAMADOL HCL 40504777712 Active Adrienne Galvez COLOR CARD MAKER Active PREMARIN 0.625 MG ORAL TABLET TAKE 1 TAB BY MOUTH DAILY ESTROGENS CONJUGATED 15651706819 No Longer Active Ridge Bess DO A ctive CYMBALTA 30 MG ORAL CAPSULE DELAYED RELEASE PARTICLES 1 cap by mouth daily DULOXETINE HCL 93766233218 No Longer Active Ridge tam DO Active AMOXICILLIN 500 MG ORAL CAPSULE 1 tab by mouth 3 times daily x 10 days AMOXICILLIN 10002843060 No Longer Active Carlton bustamante MD Active AMOXICILLIN 500 MG ORAL CAPSULE 1 tab by mouth 3 times daily x 10 days AMOXICILLIN 95141701780 No Longer Active Carlton bustamante MD Active PROMETHAZINE-CODEINE 6.25-10 MG/5ML ORAL SYRUP 1 tsp b y mouth every 8 hours prn cough PROMETHAZINE-CODEINE 33459404267 No Longer Acti ve Carlton Hu MD Active MEDROL 4 MG ORAL TABLET THERAPY PACK 6 pills x 1 day, then 5 pills x 1 day then 4 pills x 1 day, then 3 pills x 1 day, then 2 pills x 1 day, then 1 pill x 1 day, then stop METHYLPREDNISOLONE 71875699376 No Long er Active Perez Mora MD Active AZITHROMYCIN 250 MG ORAL TABLET 2 po qd x 1 day, then 1 po q d x 4 days AZITHROMYCIN 24122756099 No Longer Active Perez Ambriz MD Active SYMBICORT 160-4.5 MCG/ACT INHALATION AEROSOL 2 puffs bid wit h rinse after BUDESONIDE-FORMOTEROL FUMARATE 20689139016 N o Longer Active Perez Mora MD Active LYRICA 75 MG ORAL CAPSULE TAKE 1 CAPSULE BY MOUTH TWICE DAILY PREGABALIN 99372110521 No Longer Active Carlton Hu MD Acti ve TOPAMAX 25 MG ORAL TABLET 1 qHS x 1 week, then 1 BID x 1 week, then 1 qAM and 2 qHS x 1 week, then 2 BID (migraine prevention) T OPIRAMATE 62707260935 No Longer Active Jerica FUENTES Active TOPAMAX 50 MG ORAL TABLET take 1 tab po BID for migraines. 07/02 TOPIRAMATE 00710081197 No Longer Active Jerica FUENTES Active TOPAMAX 100 MG ORAL TABLET Take 1 tablet po bid TO PIRAMATE 02437933651 Active ALFREDO Holly Active TRIAMCINOLONE ACETONIDE 0.1 % EXTERNAL CREAM apply three roger es daily prn rash TRIAMCINOLONE ACETONIDE 20603921148 No Longer Active Carlton Hu MD Active PAXIL 40 MG ORAL TABLET take 1 tab po qday for depression 0 PAROXETINE HCL 49631570239 Active ALFREDO Holly Active CHERATUSSIN AC 100-10 MG/5ML ORAL SYRUP 5ml po q6hr PRN Cough 20 13/04/14 GUAIFENESIN-CODEINE 55540078533 No Longer Active Carlton Hu MD Active MEDROL 4 MG ORAL TABLET THERAPY PACK 6 tabs on day 1, 5 tabs on day 2, 4 tabs on day 3, 3 tabs on day 4, 2 tabs on day 5, 1 tab on day 6 2013 METHYLPREDNISOLONE 16195247845 No Longer Active Perez Mora MD Active AZITHROMYCIN 250 MG ORAL TABLET 2 po qd x 1 day, then 1 po q d x 4 days AZITHROMYCIN 18119579460 No Longer Active Perez Ambriz MD Active PROPRANOLOL HCL 60 MG ORAL TABLET 1 PO Q D PROPRANOLOL HCL 14056113098 No Longer Active Perez Mora MD Activ e CHERATUSSIN AC 100-10 MG/5ML ORAL SYRUP take one tsp po Q 6h ours prn cough GUAIFENESIN-CODEINE 92955145363 No Longer Active Zia Mora MD Active AUGMENTIN 875-125 MG ORAL TABLET 1 tab by mouth twice daily with food AMOXICILLIN-POT CLAVULANATE 87699176853 No Longer Act nael Perez Mora MD Active CHERATUSSIN AC 100-10 MG/5ML ORAL SYRUP 1 tsp by mouth every 4 hours as needed for cough GUAIFENESIN-CODEINE 72157651873 No Longe r Active Hugo Restrepo MD Active ACETAMINOPHEN-CODEINE #3 300-30 MG ORAL TABLET 1 PO Q 4-6 HRS [place] N PAIN ACETAMINOPHEN-CODEINE 46879591999 No Longer Active Hugo Restrepo MD Active LEVAQUIN 500 MG ORAL TABLET take one po QD LEVO FLOXACIN 98836652335 No Longer Active Griffin HERNANDEZ Active PREDNISONE 20 MG ORAL TABLET Take 3 tabs daily for 3 d ays, 2 tabs daily for 3 days, 1 tab daily for 3 days, 1/2 tab daily for 3 days 11/07 PREDNISONE 73386537596 No Longer Active Carlton Hu MD Acti ve AVELOX 400 MG ORAL TABLET 1 tab by mouth daily MOXIFLOXACIN HCL 44297534079 No Longer Active Carlton Hu MD Active CHERATUSSIN AC 100-10 MG/5ML ORAL SYRUP 1 tsp by mouth every 4 hours as needed for cough GUAIFENESIN-CODEINE 44821166935 No Longe r Active Hugo Restrepo MD Active AVELOX 400 MG ORAL TABLET 1 tab by mouth daily MOXIFLOXACIN HCL 68944022377 No Longer Active Marcy De La Rosa MD PhD Active TERBINAFINE HCL 250 MG ORAL TABLET 1 qDay T ERBINAFINE HCL 69652945075 No Longer Active Marcy De La Rosa MD PhD Active CHERATUSSIN AC 100-10 MG/5ML ORAL SYRUP 1 tsp by mouth every 4 hours as needed for cough GUAIFENESIN-CODEINE 86004581563 No Longe r Active Marcy De La Rosa MD PhD Active AVELOX 400 MG ORAL TABLET 1 tab by mouth daily MOXIFLOXACIN HCL 42761431430 No Longer Active Marcy De La Rosa MD PhD Active HYDROCODONE-ACETAMINOPHEN 5-325 MG ORAL TABLET 1 po q 6hr PRN co ugh HYDROCODONE-ACETAMINOPHEN 37702768873 No Longer Active Marcy De La Rosa MD PhD Active PREDNISONE 20 MG ORAL TABLET 2 tabs daily for 3 days, 1 tab daily for 3 days, 1/2 tab daily for 2 days PREDNISONE 18242922501 No Longer Active Carlton Hu MD Active CEFDINIR 300 MG ORAL CAPSULE by mouth twice a day 2011 CEFDINIR 32555144199 No Longer Active Carlton Hu MD Acti ve HYDROCHLOROTHIAZIDE 25 MG ORAL TABLET 1 TAB PO DAILY HYDROCHLOROTHIAZIDE 06841632685 Active ALFREDO Holly tive ACETAMINOPHEN-CODEINE #3 300-30 MG ORAL TABLET 1 tablet po q 4-6 hrs prn pain ACETAMINOPHEN-CODEINE 26052752783 No Longer Active Ridge Bess DO Active ZITHROMAX 250 MG ORAL TABLET 2 po today, then 1 po q days 2-5 20 03/07/07 AZITHROMYCIN 51342366495 No Longer Active Carlton Hu MD Active CHERATUSSIN AC 100-10 MG/5ML ORAL SYRUP take 1 tsp po q4-6 h ours prn cough GUAIFENESIN-CODEINE 13927707337 No Longer Active Jayden Hu MD Active ACETAMINOPHEN-CODEINE #3 300-30 MG ORAL TABLET 1 PO Q 4-6 HR PRN PAIN ACETAMINOPHEN-CODEINE 22978643445 No Longer Active Da raimundo Hu MD Active LORTAB 7.5-500 MG/15ML ORAL ELIXIR 7.5 ml po q 4 hour prn cough HYDROCODONE-ACETAMINOPHEN 57544559094 No Longer Active Carlton Hu MD Active PREDNISONE 20 MG ORAL TABLET 1 po bid 3 days, then 1 po q day 3 days PREDNISONE 05587283202 No Longer Active Carlton Hu MD Active CEFDINIR 300 MG ORAL CAPSULE by mouth twice a day 2011 CEFDINIR 54249074852 No Longer Active Carlton Hu MD Acti ve CEFDINIR 300 MG ORAL CAPSULE by mouth twice a day 2010 CEFDINIR 44324422579 No Longer Active Carlton Hu MD Acti ve CEFDINIR 300 MG ORAL CAPSULE by mouth twice a day 2010 CEFDINIR 45052631075 No Longer Active Carlton Hu MD Acti ve TESSALON PERLES 100 MG ORAL CAPSULE 1 tablet by mouth 3 times daily as needed for cough BENZONATATE 25109155401 No Longer Active Carlton Hu MD Active CEFDINIR 300 MG ORAL CAPSULE by mouth twice a day 2010 CEFDINIR 63659718196 No Longer Active Carlton Hu MD Acti ve ZITHROMAX Z-REYNA 250 MG ORAL TABLET 2 today, then 1 daily for 4 d ays AZITHROMYCIN 57119819041 No Longer Active Hugo Restrepo MD Active TESSALON PERLES 100 MG ORAL CAPSULE 1 tablet by mouth 3 times daily as needed for cough TESSALON PERLES 100 MG ORAL CAPSULE 62213 7 BENZONATATE Inactive PREDNISONE 20 MG ORAL TABLET 1 po bid 3 days, then 1 po q day 3 days PREDNISONE 20 MG ORAL TABLET 053986 PREDNISONE [place] ctive LORTAB 7.5-500 MG/15ML ORAL ELIXIR 7.5 [...] cough CHERATUSSIN AC 100-10 MG/5ML ORAL SYRUP 152880 GUAIFENESIN-CODEINE Inactive ACETAMINOPHEN-CODEINE #3 300-30 MG ORAL TABLET 1 tablet po q 4-6 hrs prn pain ACETAMINOPHEN-CODEINE #3 300-30 MG ORAL TABLET ACETAMINOPHEN-CODEINE Inactive HYDROCODONE-ACETAMINOPHEN 5-325 MG ORAL TABLET 1 po q 6hr PRN co ugh HYDROCODONE-ACETAMINOPHEN 5-325 MG ORAL TABLET 944335 HYDROCODONE-ACETAMINOPHEN Inactive AVELOX 400 MG ORAL TABLET 1 tab by mouth daily AVELOX 400 MG ORAL TABLET 834310 MOXIFLOXACIN HCL Inactive CHERATUSSIN AC 100-10 MG/5ML ORAL SYRUP 1 tsp by mouth every 4 hours as needed for cough CHERATUSSIN AC 100-10 MG/5ML ORAL SYRUP 9 94029 GUAIFENESIN-CODEINE Inactive TERBINAFINE HCL 250 MG ORAL TABLET 1 qDay 07/08 TERBINAFINE HCL 250 MG ORAL TABLET 159351 TERBINAFINE HCL Inactive CHERATUSSIN AC 100-10 MG/5ML ORAL SYRUP 1 tsp by mouth every 4 hours as needed for cough CHERATUSSIN AC 100-10 MG/5ML ORAL SYRUP 9 56083 GUAIFENESIN-CODEINE Inactive ACETAMINOPHEN-CODEINE #3 300-30 MG ORAL TABLET 1 PO Q 4-6 HRS KS N PAIN ACETAMINOPHEN-CODEINE #3 300-30 MG ORAL TABLET ACETAMINOPHEN-CODEINE Inactive CHERATUSSIN AC 100-10 MG/5ML ORAL SYRUP 1 tsp by mouth every 4 hours as needed for cough CHERATUSSIN AC 100-10 MG/5ML ORAL SYRUP 9 97427 GUAIFENESIN-CODEINE Inactive AUGMENTIN 875-125 MG ORAL TABLET 1 tab by mouth twice daily with food AUGMENTIN 875-125 MG ORAL TABLET 299628 AMOXICIL MADELINE-POT CLAVULANATE Inactive CHERATUSSIN AC 100-10 MG/5ML ORAL SYRUP take one tsp po Q 6h ours prn cough CHERATUSSIN AC 100-10 MG/5ML ORAL SYRUP 205489 GUAIFENESIN-CODEINE Inactive PROPRANOLOL HCL 60 MG ORAL TABLET 1 PO Q D PROPRANOLOL HCL 60 MG ORAL TABLET 768538 PROPRANOLOL HCL Inactive TOPAMAX 50 MG ORAL TABLET take 1 tab po BID for migraines. 07/02 TOPAMAX 50 MG ORAL TABLET 348683 TOPIRAMATE Inacti ve TOPAMAX 25 MG ORAL TABLET 1 qHS x 1 week, then 1 BID x 1 week, then 1 qAM and 2 qHS x 1 week, then 2 BID (migraine prevention) TOPAMAX 25 MG ORAL TABLET 494400 TOPIRAMATE Inactive LYRICA 75 MG ORAL CAPSULE TAKE 1 CAPSULE BY MOUTH TWICE DAILY LYRICA 75 MG ORAL CAPSULE PREGABALIN Inactive SYMBICORT 160-4.5 MCG/ACT INHALATION AEROSOL 2 puffs bid wit h rinse after SYMBICORT 160-4.5 MCG/ACT INHALATION AEROSOL BUDESONIDE- FORMOTEROL FUMARATE Inactive PROMETHAZINE-CODEINE 6.25-10 MG/5ML ORAL SYRUP 1 tsp b y mouth every 8 hours prn cough PROMETHAZINE-CODEINE 6.25-10 MG/ 5ML ORAL SYRUP 521990 PROMETHAZINE-CODEINE Inactive CYMBALTA 30 MG ORAL CAPSULE DELAYED RELEASE PARTICLES 1 cap by mouth daily CYMBALTA 30 MG ORAL CAPSULE DELAYED RELE ASE PARTICLES 391378 DULOXETINE HCL Inactive PREMARIN 0.625 MG ORAL TABLET TAKE 1 TAB BY MOUTH DAILY PREMARIN 0.625 MG ORAL TABLET ESTROGENS CONJUGATED Inactive CHERATUSSIN AC 100-10 MG/5ML ORAL SYRUP 1 tsp by mouth every 4 hours as needed for cough CHERATUSSIN AC 100-10 MG/5ML ORAL SYRUP 9 86592 GUAIFENESIN-CODEINE Inactive PROMETHAZINE-CODEINE 6.25-10 MG/5ML ORAL SYRUP 1 tsp b y mouth every 6 hours if needed for cough PROMETHAZINE-CODEINE 6.25-10 MG/5ML ORAL SYRUP 210974 PROMETHAZINE-CODEINE Inactive CHERATUSSIN AC 100-10 MG/5ML ORAL SYRUP 1 tsp by mouth every 4 hours as needed for cough CHERATUSSIN AC 100-10 MG/5ML ORAL SYRUP 9 23099 GUAIFENESIN-CODEINE Inactive FLUTICASONE PROPIONATE 50 MCG/ACT NASAL SUSPENSION 1 t o 2 sprays each nostril daily FLUTICASONE PROPIONATE 50 MCG/AC T NASAL SUSPENSION 6372169 FLUTICASONE PROPIONATE Inactive PREDNISONE 20 MG ORAL TABLET 3 tab PO qd x 2d, 2 tab P O qd x 2d, 1 tab PO qd x 2d, 1/2 tab PO qd x 2d PREDNISONE 20 MG ORAL TAB LET 596453 PREDNISONE Inactive LEVOFLOXACIN 500 MG ORAL TABLET 1 tab PO daily x 10 days LEVOFLOXACIN 500 MG ORAL TABLET 095549 LEVOFLOXACIN Inactive CYCLOBENZAPRINE HCL 10 MG ORAL TABLET 1 tablet by mouth BID prn had pain CYCLOBENZAPRINE HCL 10 MG ORAL TABLET 587415 CYCLOBENZAPRINE HCL Inactive ZOCOR 40 MG ORAL [...] FLUTICASONE PROPIO EFE 50 MCG/ACT NASAL SUSPENSION 8696349 FLUTICASONE PROPIONATE Inactive TUSSIONEX PENNKINETIC ER 10-8 [...] three days PREDNISONE 20 MG ORAL TABLET 851144 PREDNIS ONE Inactive PROAIR HFA 108 (90 BASE) MCG/ACT INHALATION AEROSOL SO LUTION 2 puffs four times a day as needed PROAIR HFA 108 (90 B ASE) MCG/ACT INHALATION AEROSOL SOLUTION ALBUTEROL SULFATE Inactive PREDNISONE 20 MG ORAL TABLET two tabs by mouth today, then one tab by mouth days two and three and four PREDNISONE 20 MG ORAL TAB LET 763771 PREDNISONE Inactive TUSSIONEX PENNKINETIC ER 10-8 MG/5ML ORAL SUSPENSION E XTENDED RELEASE 5ml po q12hr PRN Cough TUSSIONEX PENNKINETI C ER 10-8 MG/5ML ORAL SUSPENSION EXTENDED RELEASE HYDROCOD POLST-CHLORPHEN POLST I nactive ZITHROMAX Z-REYNA 250 MG ORAL TABLET 2 today, then 1 daily for 4 d ays ZITHROMAX Z-REYNA 250 MG ORAL TABLET 860162 AZITHROMYCIN Inactive CEFDINIR 300 MG ORAL CAPSULE [...] day 2011 CEFDINIR 300 MG ORAL CAPSULE 766429 CEFDINIR Inactive ZITHROMAX 250 MG ORAL TABLET 2 po today, then 1 po q days 2-5 03/07/07 ZITHROMAX 250 MG ORAL TABLET 682809 AZITHROMYCIN [place] ctive CEFDINIR 300 MG ORAL CAPSULE by mouth twice a day 2011 CEFDINIR 300 MG ORAL CAPSULE 20020704 CEFDINIR Inactive PREDNISONE 20 MG ORAL TABLET 2 tabs daily for 3 days, 1 tab daily for 3 days, 1/2 tab daily for 2 days PREDNISONE 20 MG ORAL T ABLET 127643 PREDNISONE Inactive AVELOX 400 MG ORAL TABLET 1 tab by mouth daily AVELOX 400 MG ORAL TABLET 264023 MOXIFLOXACIN HCL Inactive AVELOX 400 MG ORAL TABLET 1 tab by mouth daily AVELOX 400 MG ORAL TABLET 207134 MOXIFLOXACIN HCL Inactive PREDNISONE 20 MG ORAL TABLET Take 3 tabs daily for 3 d ays, 2 tabs daily for 3 days, 1 tab daily for 3 days, 1/2 tab daily for 3 days 11/07 PREDNISONE 20 MG ORAL TABLET 014208 PREDNISONE Inactive LEVAQUIN 500 MG ORAL TABLET take one po QD LEVAQUIN 500 MG ORAL TABLET 597574 LEVOFLOXACIN Inactive AZITHROMYCIN 250 MG ORAL TABLET 2 po qd x 1 day, then 1 po q d x 4 days AZITHROMYCIN 250 MG ORAL TABLET 365397 AZITHROMY GIOVANNI Inactive MEDROL 4 MG ORAL TABLET THERAPY PACK 6 tabs on day 1, 5 tabs on day 2, 4 tabs on day 3, 3 tabs on day 4, 2 tabs on day 5, 1 tab on day 6 2013 MEDROL 4 MG ORAL TABLET THERAPY PACK 443487 METHYLPREDNISOLONE [place] ctive CHERATUSSIN AC 100-10 MG/5ML ORAL SYRUP 5ml po q6hr PRN Cough 20 13/04/14 CHERATUSSIN AC 100-10 MG/5ML ORAL SYRUP 750103 GUAIFENE SIN-CODEINE Inactive TRIAMCINOLONE ACETONIDE 0.1 % EXTERNAL CREAM apply three roger es daily prn rash TRIAMCINOLONE ACETONIDE 0.1 % EXTERNAL CREAM 101 4314 TRIAMCINOLONE ACETONIDE Inactive AZITHROMYCIN 250 MG ORAL TABLET 2 po qd x 1 day, then 1 po q d x 4 days AZITHROMYCIN 250 MG ORAL TABLET 537551 AZITHROMY GIOVANNI Inactive MEDROL 4 MG ORAL TABLET THERAPY PACK 6 pills x 1 day, then 5 pills x 1 day then 4 pills x 1 day, then 3 pills x 1 day, then 2 pills x 1 day, then 1 pill x 1 day, then stop MEDROL 4 MG ORAL TABLET THERAPY PACK 759696 METHYLPREDNISOLONE Inactive AMOXICILLIN 500 MG ORAL CAPSULE 1 tab by mouth 3 times daily x 10 days AMOXICILLIN 500 MG ORAL CAPSULE 123512 AMOXICILL IN Inactive AMOXICILLIN 500 MG ORAL CAPSULE 1 tab by mouth 3 times daily x 10 days AMOXICILLIN 500 MG ORAL CAPSULE 128105 AMOXICILL IN Inactive ZITHROMAX 250 MG ORAL TABLET 2 po today, then 1 po q days 2-5 20 12/08/14 ZITHROMAX 250 MG ORAL TABLET 397920 AZITHROMYCIN Greer ctive AUGMENTIN 875-125 MG ORAL TABLET 1 po BID x 10 days 13/01/20 AUGMENTIN 875-125 MG ORAL TABLET 965302 AMOXICILLIN-POT CLAVULANATE Inactive ZITHROMAX Z-REYNA 250 MG ORAL TABLET 2 today, then 1 daily for 4 d ays ZITHROMAX Z-REYNA 250 MG ORAL TABLET [id number] AZITHROMYCIN Inactive ZITHROMAX 250 MG ORAL TABLET 2 po today, then 1 po q days 2-5 20 14/03/21 ZITHROMAX 250 MG ORAL TABLET [id number] AZITHROMYCIN [place] [facility] ZITHROMAX Z-REYNA 250 MG ORAL TABLET 2 today, then 1 daily for 4 d ays ZITHROMAX Z-REYNA 250 MG ORAL TABLET 254387 AZITHROMYCIN Inactive CEFDINIR 300 MG ORAL CAPSULE 1 po BID x 10 days 06/21 CEFDINIR 300 MG ORAL CAPSULE [id number] CEFDINIR Inactive ZITHROMAX 250 MG ORAL TABLET 2 po today, then 1 po q days 2-5 20 13/08/10 ZITHROMAX 250 MG ORAL TABLET 840055 AZITHROMYCIN [place] [facility] LEVAQUIN 500 MG ORAL TABLET 1 tablet by mouth daily 20 13/09/24 LEVAQUIN 500 MG ORAL TABLET 999049 LEVOFLOXACIN Inactive SINGULAIR 10 MG ORAL TABLET 1 po qday for allergies 20 14/01/12 SINGULAIR 10 MG ORAL TABLET 557219 MONTELUKAST SODIUM Inactive AMOXICILLIN 500 MG ORAL CAPSULE 2 po BID x 10 days 201 09/29/08 AMOXICILLIN 500 MG ORAL CAPSULE 020134 AMOXICILLIN Inactive PREDNISONE 20 MG ORAL TABLET 2 tabs daily for 3 days, 1 tab daily for 3 days, 1/2 tab daily for 2 days PREDNISONE 20 MG ORAL T ABLET 917570 PREDNISONE Inactive ZITHROMAX Z-REYNA 250 MG ORAL TABLET 2 today, then 1 daily for 4 d ays ZITHROMAX Z-REYNA 250 MG ORAL TABLET 883300 AZITHROMYCIN Inactive PREDNISONE 20 MG ORAL TABLET 2 tabs daily for 3 days, 1 tab daily for 3 days, 1/2 tab daily for 2 days PREDNISONE 20 MG ORAL T ABLET 049425 PREDNISONE Inactive ZITHROMAX 250 MG ORAL TABLET 2 po today, then 1 po q days 2-5 20 14/09/04 ZITHROMAX 250 MG ORAL TABLET 954090 AZITHROMYCIN [facility] AMOXICILLIN 500 MG ORAL CAPSULE 1 cap by mouth three times a day AMOXICILLIN 500 MG ORAL CAPSULE 116903 AMOXICILLIN Inactive TERBINAFINE HCL 250 MG ORAL TABLET 1 qDay for nail fungus 7 TERBINAFINE HCL 250 MG ORAL TABLET 928778 TERBINAFINE HCL Inact nael AUGMENTIN 875-125 MG ORAL TABLET 1 po BID x 10 days 16/03/22 AUGMENTIN 875-125 MG ORAL TABLET 251945 AMOXICILLIN-POT CLAVULANATE Inactive PREDNISONE 20 MG ORAL TABLET 2 po qd x 5 days PREDNISONE 20 MG ORAL TABLET 456702 PREDNISONE Inactive AZITHROMYCIN 250 MG ORAL TABLET 2 po qd x 1 day, then 1 po q d x 4 days AZITHROMYCIN 250 MG ORAL TABLET 750642 AZITHROMY GIOVANNI Inactive PREDNISONE 50 MG ORAL TABLET Take 50 mg dialy for 6 day s 7 PREDNISONE 50 MG ORAL TABLET 420650 PREDNISONE Inactive Vital Signs Date Name Value Unit Range Description blood pressure, diastolic, repeated by physician 78 [...] - Chem istry sodium, serum 139 mmol/L 864-825 3636/03/19 potassium, serum 3.6 mmol/L 3.5-5.2 chloride, serum 100 mmol/L 98-107 carbon dioxide, venous blood 30.3 mmol/L 21.0-32 .0 blood glucose 101 mg/dL 65-110 calcium, serum 9.4 mg/dL 8.5-10.1 urea nitrogen, blood 10 mg/dL 7-18 creatinine, serum 0.96 mg/dL 0.60-1.30 sodium, serum 139 mmol/L 652-389 3158/10/12 potassium, serum 3.8 mmol/L 3.5-5.2 chloride, serum 102 mmol/L 98-107 carbon dioxide, venous blood 29.4 mmol/L 21.0-32 .0 blood glucose 103 mg/dL 65-95 calcium, serum 8.8 mg/dL 8.5-10.1 urea nitrogen, blood 10 mg/dL 7-18 creatinine, serum 0.97 mg/dL 0.60-1.30 Estimated Glomerular Filtration Rate (calc) 62 (?) mL/min/1.73m2 = OR > 60 mL/min Encounters Code Encounter Date Provider Facility CPT-01135 [id number] Vst-Est Level III 11:12:16 CDT Yanet Bess DO [facility] CPT-04441 Level 3 Est. Patient 11:34:49 BUFFER INFLATED PAD Perez Mora MD [facility] CPT-72586 Level 4 Est. Patient 09:51:32 BUFFER INFLATED PAD Carlton rich MD [facility] CPT-76621 Level 3 Est. Patient 10:26:00 BUFFER INFLATED PAD Elise stephenson [facility] CPT-74731 Level 3 Est. Patient 13:35:41 BUFFER INFLATED PAD Carlton rich MD [facility] CPT-83523 Level 3 Est. Patient 10:03:52 BUFFER INFLATED PAD Carlton rich MD [facility] CPT-11717 Level 3 Est. Patient 12:17:50 CDT Hugo Restrepo MD [facility] CPT-82203 Level 3 Est. Patient 13:42:38 CDT Elise stephenson [facility] CPT-88853 Level 3 Est. Patient 13:23:[address] [facility]-00408 Level 3 Est. Patient 14:22:19 BUFFER INFLATED PAD Diya cobian [facility] CPT-80233 Level 3 Est. Patient 10:11:46 CDT Carlton rich MD [facility] CPT-44179 Level 3 Est. Patient 17:29:43 CDT Elise Are ll FRONT DESK MANAGER [facility] CPT-80395 Level 3 Est. Patient 11:58:06 CDT Elise Are ll FRONT DESK MANAGER [facility] CPT-26235 Level 4 Est. Patient 14:36:51 CDT Carlton rich MD [facility] CPT-86837 Level 3 Est. Patient 18:16:00 BUFFER INFLATED PAD Blaine Freeman [facility] CPT-10782 Level 3 Est. Patient 09:45:49 BUFFER INFLATED PAD Carlton rich MD [facility] CPT-78788 Level 3 Est. Patient 13:19:20 CDT Carlton rich MD [facility] CPT-26581 Level 3 Est. Patient 13:06:43 CDT Ridge tam DO [facility] CPT-13555 Level 3 Est. Patient 10:03:07 CDT Perez Mora MD [facility] CPT-94253 Level 3 Est. Patient 19:50:35 BUFFER INFLATED PAD Carlton rich MD [facility] CPT-95335 Level 4 Est. Patient 18:05:01 BUFFER INFLATED PAD Carlton rich MD [facility] CPT-53353 Level 3 Est. Patient 10:45:55 BUFFER INFLATED PAD Hugo Restrepo MD [facility] CPT-67246 Level 3 Est. Patient 14:12:49 CDT Griffin lincoln [facility] CPT-42347 Level 3 Est. Patient 17:37:24 CDT Carlton rich MD [facility] CPT-00126 Level 3 Est. Patient 16:51:54 CDT Carlton rich MD [facility] CPT-85775 Level 3 Est. Patient 12:18:11 CDT Hugo Restrepo MD [facility] CPT-29252 Level 3 Est. Patient 11:30:25 CDT Marcy crisostomo MD PhD [facility] CPT-37608 Level 3 Est. Patient 12:00:47 BUFFER INFLATED PAD Carlton rich MD [facility] CPT-88787 Level 3 Est. Patient 16:31:06 BUFFER INFLATED PAD Carlton rich MD [facility] CPT-87578 Level 3 Est. Patient 16:23:24 BUFFER INFLATED PAD Ridge tam [facility] CPT-14338 Level 3 Est. Patient 12:34:12 CDT Carlton rich MD [facility] CPT-95256 Level 2 Est. Patient 15:43:33 CDT Robi armstrong MD [facility] CPT-39180 Level 4 Est. Patient 14:04:44 CDT Carlton rich MD [facility] CPT-32660 Level 3 Est. Patient 05:47:[address] [facility] CPT-82534 Level 3 Est. Patient 13:12:53 BUFFER INFLATED PAD Carlton rich MD [facility] CPT-05903 Level 3 Est. Patient 14:26:53 CDT Hugo [...] CPT-J1100 Decadron 6mg (Dexamethasone) 14:32:13 CDT 2 CPT-42650 Hip bilat min 2V w AP pelvis 13:16:20 CDT 2 CPT-97256 Pelvis only 13:07:33 CDT CPT-08737 Spec Collection and Handling Fee 11:25:12 C DT CPT-33445 Fluzone Quadrivalent Intramuscular Suspe nsion 0.5 ML 14:31:55 CDT CPT-89930 Abx/Therapy Injection 13:28:47 BUFFER INFLATED PAD CPT-J2930 Solu Medrol 125 mg (Methyl Prednisolone Sodium Succinate) 12:00:47 BUFFER INFLATED PAD CPT-55927 Venipuncture Draw Fee 11:33:31 CDT CPT-63333 EKG Trac and Interp 11:21:09 CDT CPT-13482 Chest 2V Frontal and Lat 11:21:09 CDT 12/15 CPT-85084 Venipuncture Draw Fee 08:02:34 CDT CPT-32766 Chest 2V Frontal and Lat 05:47:59 CDT 06/05
--- OUTSIDE RECORDS SUMMARY | 2019-10-08 09:19 | XMS REPORT | Clinical Summary ---
Author Author Caitlin, Juliana Martinez Organization [facility] Address Unknown Phone Unavailable Allergies, Adverse [...] URI 465.9 Inactive Ridge Bess DO Ac [place] upper respiratory infections of unspecified site Body [...] po q12hr PRN Cough HYDROCOD POLST-CHLORPHEN POLST [id number] Active Carlton Hu MD Active AUGMENTIN 875-125 MG ORAL TABLET 1 po BID x 10 days 18/04/16 AMOXICILLIN-POT CLAVULANATE 28496731279 Active David Marianne ADMINISTRATIVE SUPPORT ASSISTANT Active PREDNISONE 50 MG ORAL TABLET Take 50 mg dialy for 6 day s 7 PREDNISONE 96332462169 No Longer Active David Marianne ADMINISTRATIVE SUPPORT ASSISTANT Active TUSSIONEX PENNKINETIC ER 10-8 MG/5ML ORAL SUSPENSION E XTENDED RELEASE 5ml po q12hr PRN Cough HYDROCOD POLST-CHLORPHEN POLST 5 9140799528 No Longer Active Cherelle Torres RN Active PREDNISONE 20 MG ORAL TABLET two tabs by mouth today, then one tab by mouth days two and three and four PREDNISONE 04607865009 No Lo nger Active Cherelle Torres RN Active AZITHROMYCIN 250 MG ORAL TABLET 2 po qd x 1 day, then 1 po q d x 4 days AZITHROMYCIN 79474006700 No Longer Active Ridge Bess DO Active PREDNISONE 20 MG ORAL TABLET 2 po qd x 5 days P REDNISONE 84077957896 No Longer Active Perez Mora MD Active PROAIR HFA 108 (90 BASE) MCG/ACT INHALATION AEROSOL SO LUTION 2 puffs four times a day as needed ALBUTEROL SULFATE 05302240897 No Long er Active Becky FUENTES Active ASPIRIN 81 MG ORAL TABLET 1 po qd ASPIRIN 01643200978 Active Carlton Hu MD Active PREDNISONE 20 MG ORAL TABLET 1 tab twice daily for 3 d ay, then one daily for three days PREDNISONE 78940615686 No Longer Active Carlton Hu MD Active AUGMENTIN 875-125 MG ORAL TABLET 1 po BID x 10 days 16/03/22 AMOXICILLIN-POT CLAVULANATE 52983069056 No Longer Active Elise Garcia APRN Active TERBINAFINE HCL 250 MG ORAL TABLET 1 qDay for nail fungus 7 TERBINAFINE HCL 55562938599 No Longer Active Carlton Hu MD A ctive AMOXICILLIN 500 MG ORAL CAPSULE 1 cap by mouth three times a day AMOXICILLIN 44060043598 No Longer Active Carlton Hu MD Active ELMIRON 100 MG ORAL CAPSULE 2 tablets in the am and 1 tablet at hs PENTOSAN POLYSULFATE SODIUM 78148670629 No Longer Active Robert jade Hu MD Active MUCINEX D 60-600 MG ORAL TABLET EXTENDED RELEASE 12 HOUR 1 t ab po q am PSEUDOEPHEDRINE-GUAIFENESIN 69276718618 No Longer Act nael Carlton Hu MD Active MUCINEX DM MAXIMUM STRENGTH 60-1200 MG ORAL TABLET EXT ENDED RELEASE 12 HOUR 1 tab po q am DEXTROMETHORPHAN-GUAIFENESIN 76140877800 No Longer Active Carlton Hu MD Active TUSSIONEX PENNKINETIC ER 10-8 MG/5ML ORAL SUSPENSION E XTENDED RELEASE 5ml po q12hr PRN Cough HYDROCOD POLST-CHLORPHEN POLST 5 9984683884 No Longer Active Carlton Hu MD Active POTASSIUM CHLORIDE ER 20 MEQ ORAL TABLET EXTENDED RELE ASE Take 1 by mouth 4 times daily for 7 days POTASSIUM CHLORIDE 80015039701 No Longer Active Carlton Hu MD Active ZITHROMAX 250 MG ORAL TABLET 2 po today, then 1 po q days 2-5 20 14/09/04 AZITHROMYCIN 41844242363 No Longer Active Elise Garcia APRN Active TUSSIONEX PENNKINETIC ER 10-8 MG/5ML ORAL SUSPENSION E XTENDED RELEASE 5 ml twice a day as needed for cough HYDROCOD POLST-CHLORPH EN POLST 22785742553 No Longer Active Elise Garcia APRN Active MONTELUKAST SODIUM 10 MG ORAL TABLET 1 po daily for Allergy MONTELUKAST SODIUM 72044246967 Active Carlton Hu MD Ac tive TUSSIONEX PENNKINETIC ER 10-8 MG/5ML ORAL SUSPENSION E XTENDED RELEASE 5ml po q12hr PRN Cough HYDROCOD POLST-CHLORPHEN POLST 5 8755355515 No Longer Active Hugo Restrepo MD Active GABAPENTIN 100 MG ORAL CAPSULE 1 po BID for fibromyalgia GABAPENTIN 96411490852 Active Carlton Hu MD Active LYRICA 100 MG ORAL CAPSULE Take 1 tab po BID for fibromyalgia 20 11/08/21 PREGABALIN 31294437763 No Longer Active Elise Garcia APRN A ctive PREDNISONE 20 MG ORAL TABLET 2 tabs daily for 3 days, 1 tab daily for 3 days, 1/2 tab daily for 2 days PREDNISONE 28298610069 No Longer Active Diya De Guzman APRN Active TUSSIONEX PENNKINETIC ER 10-8 MG/5ML ORAL SUSPENSION E XTENDED RELEASE 5 mL PO q 12 hrs PRN cough HYDROCOD POLST-CHLORPHEN POLST 669787 11772 No Longer Active Jillina Daphnezell BILL Active FLUTICASONE PROPIONATE 50 MCG/ACT NASAL SUSPENSION 2 s prays each nostril daily until bottle is empty FLUTICASONE PROPIONATE 776917094 99 No Longer Active Jillina Cesarl ADMINISTRATIVE SUPPORT ASSISTANT Active ASMANEX 60 METERED DOSES 220 MCG/INH INHALATION AEROSO L POWDER BREATH ACTIVATED 1 puff bid with rinse after MOMETASONE FUROATE 1682492 4102 No Longer Active Diya De Guzman APRN Active ZITHROMAX Z-REYNA 250 MG ORAL TABLET 2 today, then 1 daily for 4 d ays AZITHROMYCIN 60294427764 No Longer Active Elise Garcia APRN Active TUSSIONEX PENNKINETIC ER 10-8 MG/5ML ORAL SUSPENSION E XTENDED RELEASE 5ml po q12hr PRN Cough HYDROCOD POLST-CHLORPHEN POLST 5 2751782153 No Longer Active Elise Garcia APRN Active PREDNISONE 20 MG ORAL TABLET 2 tabs daily for 3 days, 1 tab daily for 3 days, 1/2 tab daily for 2 days PREDNISONE 35519000134 No Longer Active Diya De Guzman APRN Active AMOXICILLIN 500 MG ORAL CAPSULE 2 po BID x 10 days 201 09/29/08 AMOXICILLIN 68713769568 No Longer Active Diya De Guzman APRN Act nael SINGULAIR 10 MG ORAL TABLET 1 po qday for allergies 20 14/01/12 MONTELUKAST SODIUM 92922884036 No Longer Active Carlton Hu MD Active LEVAQUIN 500 MG ORAL TABLET 1 tablet by mouth daily 20 13/09/24 LEVOFLOXACIN 32985008683 No Longer Active Carlton Hu MD Acti ve FLUTICASONE PROPIONATE 50 MCG/ACT NASAL SUSPENSION 2 s prays each nostril daily for 2 weeks, then 1 spray each nostril daily. FLUTICASONE PROPIONATE 72650710145 Active ALFREDO Holly Active ZITHROMAX 250 MG ORAL TABLET 2 po today, then 1 po q days 2-5 20 13/08/10 AZITHROMYCIN 63965235489 No Longer Active Elise Garcia APRN Active XANAX 0.5 MG ORAL TABLET one tablet by mouth daily prn anxiety 2015 ALPRAZOLAM 37990654633 Active ALFREDO Holly Active CYMBALTA 30 MG ORAL CAPSULE DELAYED RELEASE PARTICLES 1 cap by mouth daily for depression DULOXETINE HCL 41326763857 Active Maria Luisa Sanabria, RMA Active CEFDINIR 300 MG ORAL CAPSULE 1 po BID x 10 days CEFDINIR 65392583766 No Longer Active Carlton Hu MD Active ZOCOR 40 MG ORAL TABLET 1 tab by mouth daily SI MVASTATIN 49255133079 No Longer Active Carlton Hu MD Active CYCLOBENZAPRINE HCL 10 MG ORAL TABLET 1 tablet by mouth BID prn had pain CYCLOBENZAPRINE HCL 15998022797 No Longer Active Jayden Hu MD Active LEVOFLOXACIN 500 MG ORAL TABLET 1 tab PO daily x 10 days LEVOFLOXACIN 13362037812 No Longer Active Carlton Hu MD Acti ve PREDNISONE 20 MG ORAL TABLET 3 tab PO qd x 2d, 2 tab P O qd x 2d, 1 tab PO qd x 2d, 1/2 tab PO qd x 2d PREDNISONE 36732486391 No Lo nger Active Carlton Hu MD Active FLUTICASONE PROPIONATE 50 MCG/ACT NASAL SUSPENSION 1 t o 2 sprays each nostril daily FLUTICASONE PROPIONATE 39241341923 No Longer Ac tive Blaine HERNANDEZ Active CHERATUSSIN AC 100-10 MG/5ML ORAL SYRUP 1 tsp by mouth every 4 hours as needed for cough GUAIFENESIN-CODEINE 97355153787 No Longe r Active Blaine HERNANDEZ Active PROMETHAZINE-CODEINE 6.25-10 MG/5ML ORAL SYRUP 1 tsp b y mouth every 6 hours if needed for cough PROMETHAZINE-CODEINE 74247025543 No Longer Active Blaine HERNANDEZ Active CHERATUSSIN AC 100-10 MG/5ML ORAL SYRUP 1 tsp by mouth every 4 hours as needed for cough GUAIFENESIN-CODEINE 34334216856 No Longe r Active Blaine HERNANDEZ Active ZITHROMAX Z-REYNA 250 MG ORAL TABLET 2 today, then 1 daily for 4 d ays AZITHROMYCIN 58179888289 No Longer Active Columba Raida Act nael ZITHROMAX 250 MG ORAL TABLET 2 po today, then 1 po q days 2-5 20 14/03/21 AZITHROMYCIN 83773066858 No Longer Active Carlton Hu MD Active ZITHROMAX Z-REYNA 250 MG ORAL TABLET 2 today, then 1 daily for 4 d ays AZITHROMYCIN 35665817770 No Longer Active Columba Raida Act nael AUGMENTIN 875-125 MG ORAL TABLET 1 po BID x 10 days 13/01/20 AMOXICILLIN-POT CLAVULANATE 17744169524 No Longer Active Diya De Guzman ADMINISTRATIVE SUPPORT ASSISTANT Active ZITHROMAX 250 MG ORAL TABLET 2 po today, then 1 po q days 2-5 12/08/14 AZITHROMYCIN 13429230674 No Longer Active Carlton Hu MD Active TRAMADOL HCL 50 MG ORAL TABLET 1 po tid with ES Tylenol TRAMADOL HCL 17895044232 Active Adrienne Galvez STEM MOUNTER Active PREMARIN 0.625 MG ORAL TABLET TAKE 1 TAB BY MOUTH DAILY ESTROGENS CONJUGATED 36031708220 No Longer Active Ridge eBss DO A ctive CYMBALTA 30 MG ORAL CAPSULE DELAYED RELEASE PARTICLES 1 cap by mouth daily DULOXETINE HCL 16426325585 No Longer Active Ridge tam DO Active AMOXICILLIN 500 MG ORAL CAPSULE 1 tab by mouth 3 times daily x 10 days AMOXICILLIN 27650255378 No Longer Active Carlton bustamante MD Active AMOXICILLIN 500 MG ORAL CAPSULE 1 tab by mouth 3 times daily x 10 days AMOXICILLIN 85169221828 No Longer Active Carlton bustamante MD Active PROMETHAZINE-CODEINE 6.25-10 MG/5ML ORAL SYRUP 1 tsp b y mouth every 8 hours prn cough PROMETHAZINE-CODEINE 84961846631 No Longer Acti ve Carlton Hu MD Active MEDROL 4 MG ORAL TABLET THERAPY PACK 6 pills x 1 day, then 5 pills x 1 day then 4 pills x 1 day, then 3 pills x 1 day, then 2 pills x 1 day, then 1 pill x 1 day, then stop METHYLPREDNISOLONE 91382623364 No Long er Active Perez Mora MD Active AZITHROMYCIN 250 MG ORAL TABLET 2 po qd x 1 day, then 1 po q d x 4 days AZITHROMYCIN 48773746958 No Longer Active Perez Ambriz MD Active SYMBICORT 160-4.5 MCG/ACT INHALATION AEROSOL 2 puffs bid wit h rinse after BUDESONIDE-FORMOTEROL FUMARATE 24588428463 N o Longer Active Perez Mora MD Active LYRICA 75 MG ORAL CAPSULE TAKE 1 CAPSULE BY MOUTH TWICE DAILY PREGABALIN 22786065387 No Longer Active Carlton Hu MD Acti ve TOPAMAX 25 MG ORAL TABLET 1 qHS x 1 week, then 1 BID x 1 week, then 1 qAM and 2 qHS x 1 week, then 2 BID (migraine prevention) T OPIRAMATE 27446616248 No Longer Active Jerica FUENTES Active TOPAMAX 50 MG ORAL TABLET take 1 tab po BID for migraines. 07/02 TOPIRAMATE 03214096552 No Longer Active Jerica FUENTES Active TOPAMAX 100 MG ORAL TABLET Take 1 tablet po bid TO PIRAMATE 41398329646 Active ALFREDO Holly Active TRIAMCINOLONE ACETONIDE 0.1 % EXTERNAL CREAM apply three roger es daily prn rash TRIAMCINOLONE ACETONIDE 30261406887 No Longer Active Carlton Hu MD Active PAXIL 40 MG ORAL TABLET take 1 tab po qday for depression 0 PAROXETINE HCL 56349027204 Active ALFREDO Holly Active CHERATUSSIN AC 100-10 MG/5ML ORAL SYRUP 5ml po q6hr PRN Cough 20 13/04/14 GUAIFENESIN-CODEINE 74831856297 No Longer Active Carlton Hu MD Active MEDROL 4 MG ORAL TABLET THERAPY PACK 6 tabs on day 1, 5 tabs on day 2, 4 tabs on day 3, 3 tabs on day 4, 2 tabs on day 5, 1 tab on day 6 2013 METHYLPREDNISOLONE 20712748774 No Longer Active Perez Mora MD Active AZITHROMYCIN 250 MG ORAL TABLET 2 po qd x 1 day, then 1 po q d x 4 days AZITHROMYCIN 43512468989 No Longer Active Perez Ambriz MD Active PROPRANOLOL HCL 60 MG ORAL TABLET 1 PO Q D PROPRANOLOL HCL 43921690542 No Longer Active Perez Mora MD Activ e CHERATUSSIN AC 100-10 MG/5ML ORAL SYRUP take one tsp po Q 6h ours prn cough GUAIFENESIN-CODEINE 17564891284 No Longer Active Zia Mora MD Active AUGMENTIN 875-125 MG ORAL TABLET 1 tab by mouth twice daily with food AMOXICILLIN-POT CLAVULANATE 48551611944 No Longer Act nael Perez Mora MD Active CHERATUSSIN AC 100-10 MG/5ML ORAL SYRUP 1 tsp by mouth every 4 hours as needed for cough GUAIFENESIN-CODEINE 11961228890 No Longe r Active Hugo Restrepo MD Active ACETAMINOPHEN-CODEINE #3 300-30 MG ORAL TABLET 1 PO Q 4-6 HRS CA N PAIN ACETAMINOPHEN-CODEINE 39478467379 No Longer Active Hugo Restrepo MD Active LEVAQUIN 500 MG ORAL TABLET take one po QD LEVO FLOXACIN 19354742964 No Longer Active Griffin HERNANDEZ Active PREDNISONE 20 MG ORAL TABLET Take 3 tabs daily for 3 d ays, 2 tabs daily for 3 days, 1 tab daily for 3 days, 1/2 tab daily for 3 days 11/07 PREDNISONE 82100520917 No Longer Active Carlton Hu MD Acti ve AVELOX 400 MG ORAL TABLET 1 tab by mouth daily MOXIFLOXACIN HCL 96193280842 No Longer Active Carlton Hu MD Active CHERATUSSIN AC 100-10 MG/5ML ORAL SYRUP 1 tsp by mouth every 4 hours as needed for cough GUAIFENESIN-CODEINE 88751730525 No Longe r Active Hugo Restrepo MD Active AVELOX 400 MG ORAL TABLET 1 tab by mouth daily MOXIFLOXACIN HCL 70580255588 No Longer Active Marcy De La Rosa MD PhD Active TERBINAFINE HCL 250 MG ORAL TABLET 1 qDay T ERBINAFINE HCL 60123601528 No Longer Active Marcy De La Rosa MD PhD Active CHERATUSSIN AC 100-10 MG/5ML ORAL SYRUP 1 tsp by mouth every 4 hours as needed for cough GUAIFENESIN-CODEINE 05682096913 No Longe r Active Marcy De La Rosa MD PhD Active AVELOX 400 MG ORAL TABLET 1 tab by mouth daily MOXIFLOXACIN HCL 11981371477 No Longer Active Marcy De La Rosa MD PhD Active HYDROCODONE-ACETAMINOPHEN 5-325 MG ORAL TABLET 1 po q 6hr PRN co ugh HYDROCODONE-ACETAMINOPHEN 18937072835 No Longer Active Marcy De La Rosa MD PhD Active PREDNISONE 20 MG ORAL TABLET 2 tabs daily for 3 days, 1 tab daily for 3 days, 1/2 tab daily for 2 days PREDNISONE 76276767754 No Longer Active Carlton Hu MD Active CEFDINIR 300 MG ORAL CAPSULE by mouth twice a day 2011 CEFDINIR 69274779957 No Longer Active Carlton Hu MD Acti ve HYDROCHLOROTHIAZIDE 25 MG ORAL TABLET 1 TAB PO DAILY HYDROCHLOROTHIAZIDE 94686380832 Active ALFREDO Holly tive ACETAMINOPHEN-CODEINE #3 300-30 MG ORAL TABLET 1 tablet po q 4-6 hrs prn pain ACETAMINOPHEN-CODEINE 84841793790 No Longer Active Ridge Bess DO Active ZITHROMAX 250 MG ORAL TABLET 2 po today, then 1 po q days 2-5 20 03/07/07 AZITHROMYCIN 10511923972 No Longer Active Carlton Hu MD Active CHERATUSSIN AC 100-10 MG/5ML ORAL SYRUP take 1 tsp po q4-6 h ours prn cough GUAIFENESIN-CODEINE 44332180774 No Longer Active Jayden Hu MD Active ACETAMINOPHEN-CODEINE #3 300-30 MG ORAL TABLET 1 PO Q 4-6 HR PRN PAIN ACETAMINOPHEN-CODEINE 33835638773 No Longer Active Da raimundo Hu MD Active LORTAB 7.5-500 MG/15ML ORAL ELIXIR 7.5 ml po q 4 hour prn cough HYDROCODONE-ACETAMINOPHEN 52917337652 No Longer Active Carlton Hu MD Active PREDNISONE 20 MG ORAL TABLET 1 po bid 3 days, then 1 po q day 3 days PREDNISONE 82196839808 No Longer Active Carlton Hu MD Active CEFDINIR 300 MG ORAL CAPSULE by mouth twice a day 2011 CEFDINIR 71317223257 No Longer Active Carlton Hu MD Acti ve CEFDINIR 300 MG ORAL CAPSULE by mouth twice a day 2010 CEFDINIR 60702771355 No Longer Active Carlton Hu MD Acti ve CEFDINIR 300 MG ORAL CAPSULE by mouth twice a day 2010 CEFDINIR 09081179409 No Longer Active Carlton Hu MD Acti ve TESSALON PERLES 100 MG ORAL CAPSULE 1 tablet by mouth 3 times daily as needed for cough BENZONATATE 86930654520 No Longer Active Carlton Hu MD Active CEFDINIR 300 MG ORAL CAPSULE by mouth twice a day 2010 CEFDINIR 51816599982 No Longer Active Carlton Hu MD Acti ve ZITHROMAX Z-REYNA 250 MG ORAL TABLET 2 today, then 1 daily for 4 d ays AZITHROMYCIN 54372204086 No Longer Active Hugo Restrepo MD Active TESSALON PERLES 100 MG ORAL CAPSULE 1 tablet by mouth 3 times daily as needed for cough DIANA PERLES 100 MG ORAL CAPSULE 37322 7 BENZONATATE Inactive PREDNISONE 20 MG ORAL TABLET 1 po bid 3 days, then 1 po q day 3 days PREDNISONE 20 MG ORAL TABLET 319019 PREDNISONE [place] ctive LORTAB 7.5-500 MG/15ML ORAL ELIXIR 7.5 [...] cough CHERATUSSIN AC 100-10 MG/5ML ORAL SYRUP 186207 GUAIFENESIN-CODEINE Inactive ACETAMINOPHEN-CODEINE #3 300-30 MG ORAL TABLET 1 tablet po q 4-6 hrs prn pain ACETAMINOPHEN-CODEINE #3 300-30 MG ORAL TABLET ACETAMINOPHEN-CODEINE Inactive HYDROCODONE-ACETAMINOPHEN 5-325 MG ORAL TABLET 1 po q 6hr PRN co ugh HYDROCODONE-ACETAMINOPHEN 5-325 MG ORAL TABLET 738841 HYDROCODONE-ACETAMINOPHEN Inactive AVELOX 400 MG ORAL TABLET 1 tab by mouth daily AVELOX 400 MG ORAL TABLET 678853 MOXIFLOXACIN HCL Inactive CHERATUSSIN AC 100-10 MG/5ML ORAL SYRUP 1 tsp by mouth every 4 hours as needed for cough CHERATUSSIN AC 100-10 MG/5ML ORAL SYRUP 9 19439 GUAIFENESIN-CODEINE Inactive TERBINAFINE HCL 250 MG ORAL TABLET 1 qDay 07/08 TERBINAFINE HCL 250 MG ORAL TABLET 015008 TERBINAFINE HCL Inactive CHERATUSSIN AC 100-10 MG/5ML ORAL SYRUP 1 tsp by mouth every 4 hours as needed for cough CHERATUSSIN AC 100-10 MG/5ML ORAL SYRUP 9 26681 GUAIFENESIN-CODEINE Inactive ACETAMINOPHEN-CODEINE #3 300-30 MG ORAL TABLET 1 PO Q 4-6 HRS CA N PAIN ACETAMINOPHEN-CODEINE #3 300-30 MG ORAL TABLET ACETAMINOPHEN-CODEINE Inactive CHERATUSSIN AC 100-10 MG/5ML ORAL SYRUP 1 tsp by mouth every 4 hours as needed for cough CHERATUSSIN AC 100-10 MG/5ML ORAL SYRUP 9 71047 GUAIFENESIN-CODEINE Inactive AUGMENTIN 875-125 MG ORAL TABLET 1 tab by mouth twice daily with food AUGMENTIN 875-125 MG ORAL TABLET 873401 AMOXICIL MADELINE-POT CLAVULANATE Inactive CHERATUSSIN AC 100-10 MG/5ML ORAL SYRUP take one tsp po Q 6h ours prn cough CHERATUSSIN AC 100-10 MG/5ML ORAL SYRUP 151896 GUAIFENESIN-CODEINE Inactive PROPRANOLOL HCL 60 MG ORAL TABLET 1 PO Q D PROPRANOLOL HCL 60 MG ORAL TABLET 146432 PROPRANOLOL HCL Inactive TOPAMAX 50 MG ORAL TABLET take 1 tab po BID for migraines. 07/02 TOPAMAX 50 MG ORAL TABLET 109966 TOPIRAMATE Inacti ve TOPAMAX 25 MG ORAL TABLET 1 qHS x 1 week, then 1 BID x 1 week, then 1 qAM and 2 qHS x 1 week, then 2 BID (migraine prevention) TOPAMAX 25 MG ORAL TABLET 229171 TOPIRAMATE Inactive LYRICA 75 MG ORAL CAPSULE TAKE 1 CAPSULE BY MOUTH TWICE DAILY LYRICA 75 MG ORAL CAPSULE PREGABALIN Inactive SYMBICORT 160-4.5 MCG/ACT INHALATION AEROSOL 2 puffs bid wit h rinse after SYMBICORT 160-4.5 MCG/ACT INHALATION AEROSOL BUDESONIDE- FORMOTEROL FUMARATE Inactive PROMETHAZINE-CODEINE 6.25-10 MG/5ML ORAL SYRUP 1 tsp b y mouth every 8 hours prn cough PROMETHAZINE-CODEINE 6.25-10 MG/ 5ML ORAL SYRUP 444345 PROMETHAZINE-CODEINE Inactive CYMBALTA 30 MG ORAL CAPSULE DELAYED RELEASE PARTICLES 1 cap by mouth daily CYMBALTA 30 MG ORAL CAPSULE DELAYED RELE ASE PARTICLES 843353 DULOXETINE HCL Inactive PREMARIN 0.625 MG ORAL TABLET TAKE 1 TAB BY MOUTH DAILY PREMARIN 0.625 MG ORAL TABLET ESTROGENS CONJUGATED Inactive CHERATUSSIN AC 100-10 MG/5ML ORAL SYRUP 1 tsp by mouth every 4 hours as needed for cough CHERATUSSIN AC 100-10 MG/5ML ORAL SYRUP 9 57233 GUAIFENESIN-CODEINE Inactive PROMETHAZINE-CODEINE 6.25-10 MG/5ML ORAL SYRUP 1 tsp b y mouth every 6 hours if needed for cough PROMETHAZINE-CODEINE 6.25-10 MG/5ML ORAL SYRUP 798077 PROMETHAZINE-CODEINE Inactive CHERATUSSIN AC 100-10 MG/5ML ORAL SYRUP 1 tsp by mouth every 4 hours as needed for cough CHERATUSSIN AC 100-10 MG/5ML ORAL SYRUP 9 39046 GUAIFENESIN-CODEINE Inactive FLUTICASONE PROPIONATE 50 MCG/ACT NASAL SUSPENSION 1 t o 2 sprays each nostril daily FLUTICASONE PROPIONATE 50 MCG/AC T NASAL SUSPENSION 9954070 FLUTICASONE PROPIONATE Inactive PREDNISONE 20 MG ORAL TABLET 3 tab PO qd x 2d, 2 tab P O qd x 2d, 1 tab PO qd x 2d, 1/2 tab PO qd x 2d PREDNISONE 20 MG ORAL TAB LET 603916 PREDNISONE Inactive LEVOFLOXACIN 500 MG ORAL TABLET 1 tab PO daily x 10 days LEVOFLOXACIN 500 MG ORAL TABLET 564703 LEVOFLOXACIN Inactive CYCLOBENZAPRINE HCL 10 MG ORAL TABLET 1 tablet by mouth BID prn had pain CYCLOBENZAPRINE HCL 10 MG ORAL TABLET 137973 CYCLOBENZAPRINE HCL Inactive ZOCOR 40 MG ORAL [...] FLUTICASONE PROPIO EFE 50 MCG/ACT NASAL SUSPENSION 2632418 FLUTICASONE PROPIONATE Inactive TUSSIONEX PENNKINETIC ER 10-8 [...] three days PREDNISONE 20 MG ORAL TABLET 961299 PREDNIS ONE Inactive PROAIR HFA 108 (90 BASE) MCG/ACT INHALATION AEROSOL SO LUTION 2 puffs four times a day as needed PROAIR HFA 108 (90 B ASE) MCG/ACT INHALATION AEROSOL SOLUTION ALBUTEROL SULFATE Inactive PREDNISONE 20 MG ORAL TABLET two tabs by mouth today, then one tab by mouth days two and three and four PREDNISONE 20 MG ORAL TAB LET 729911 PREDNISONE Inactive TUSSIONEX PENNKINETIC ER 10-8 MG/5ML ORAL SUSPENSION E XTENDED RELEASE 5ml po q12hr PRN Cough TUSSIONEX PENNKINETI C ER 10-8 MG/5ML ORAL SUSPENSION EXTENDED RELEASE HYDROCOD POLST-CHLORPHEN POLST I nactive ZITHROMAX Z-REYNA 250 MG ORAL TABLET 2 today, then 1 daily for 4 d ays ZITHROMAX Z-REYNA 250 MG ORAL TABLET 989684 AZITHROMYCIN Inactive CEFDINIR 300 MG ORAL CAPSULE [...] day 2011 CEFDINIR 300 MG ORAL CAPSULE 307835 CEFDINIR Inactive ZITHROMAX 250 MG ORAL TABLET 2 po today, then 1 po q days 2-5 03/07/07 ZITHROMAX 250 MG ORAL TABLET 480321 AZITHROMYCIN [place] ctive CEFDINIR 300 MG ORAL CAPSULE by mouth twice a day 2011 CEFDINIR 300 MG ORAL CAPSULE 20020704 CEFDINIR Inactive PREDNISONE 20 MG ORAL TABLET 2 tabs daily for 3 days, 1 tab daily for 3 days, 1/2 tab daily for 2 days PREDNISONE 20 MG ORAL T ABLET 568382 PREDNISONE Inactive AVELOX 400 MG ORAL TABLET 1 tab by mouth daily AVELOX 400 MG ORAL TABLET 920473 MOXIFLOXACIN HCL Inactive AVELOX 400 MG ORAL TABLET 1 tab by mouth daily AVELOX 400 MG ORAL TABLET 326574 MOXIFLOXACIN HCL Inactive PREDNISONE 20 MG ORAL TABLET Take 3 tabs daily for 3 d ays, 2 tabs daily for 3 days, 1 tab daily for 3 days, 1/2 tab daily for 3 days 11/07 PREDNISONE 20 MG ORAL TABLET 556373 PREDNISONE Inactive LEVAQUIN 500 MG ORAL TABLET take one po QD LEVAQUIN 500 MG ORAL TABLET 298335 LEVOFLOXACIN Inactive AZITHROMYCIN 250 MG ORAL TABLET 2 po qd x 1 day, then 1 po q d x 4 days AZITHROMYCIN 250 MG ORAL TABLET 281839 AZITHROMY GIOVANNI Inactive MEDROL 4 MG ORAL TABLET THERAPY PACK 6 tabs on day 1, 5 tabs on day 2, 4 tabs on day 3, 3 tabs on day 4, 2 tabs on day 5, 1 tab on day 6 2013 MEDROL 4 MG ORAL TABLET THERAPY PACK 531871 METHYLPREDNISOLONE [place] ctive CHERATUSSIN AC 100-10 MG/5ML ORAL SYRUP 5ml po q6hr PRN Cough 20 13/04/14 CHERATUSSIN AC 100-10 MG/5ML ORAL SYRUP 701999 GUAIFENE SIN-CODEINE Inactive TRIAMCINOLONE ACETONIDE 0.1 % EXTERNAL CREAM apply three roger es daily prn rash TRIAMCINOLONE ACETONIDE 0.1 % EXTERNAL CREAM 101 4314 TRIAMCINOLONE ACETONIDE Inactive AZITHROMYCIN 250 MG ORAL TABLET 2 po qd x 1 day, then 1 po q d x 4 days AZITHROMYCIN 250 MG ORAL TABLET 499352 AZITHROMY GIOVANNI Inactive MEDROL 4 MG ORAL TABLET THERAPY PACK 6 pills x 1 day, then 5 pills x 1 day then 4 pills x 1 day, then 3 pills x 1 day, then 2 pills x 1 day, then 1 pill x 1 day, then stop MEDROL 4 MG ORAL TABLET THERAPY PACK 528708 METHYLPREDNISOLONE Inactive AMOXICILLIN 500 MG ORAL CAPSULE 1 tab by mouth 3 times daily x 10 days AMOXICILLIN 500 MG ORAL CAPSULE 820920 AMOXICILL IN Inactive AMOXICILLIN 500 MG ORAL CAPSULE 1 tab by mouth 3 times daily x 10 days AMOXICILLIN 500 MG ORAL CAPSULE 986428 AMOXICILL IN Inactive ZITHROMAX 250 MG ORAL TABLET 2 po today, then 1 po q days 2-5 20 12/08/14 ZITHROMAX 250 MG ORAL TABLET 977092 AZITHROMYCIN [place] ctive AUGMENTIN 875-125 MG ORAL TABLET 1 po BID x 10 days 20 13/01/20 AUGMENTIN 875-125 MG ORAL TABLET 806570 AMOXICILLIN-POT CLAVULANATE Inactive ZITHROMAX Z-REYNA 250 MG ORAL TABLET 2 today, then 1 daily for 4 d ays ZITHROMAX Z-REYNA 250 MG ORAL TABLET 191564 AZITHROMYCIN Inactive ZITHROMAX 250 MG ORAL TABLET 2 po today, then 1 po q days 2-5 20 14/03/21 ZITHROMAX 250 MG ORAL TABLET 647706 AZITHROMYCIN [place] ctive ZITHROMAX Z-REYNA 250 MG ORAL TABLET 2 today, then 1 daily for 4 d ays ZITHROMAX Z-REYNA 250 MG ORAL TABLET 142777 AZITHROMYCIN Inactive CEFDINIR 300 MG ORAL CAPSULE 1 po BID x 10 days 06/21 CEFDINIR 300 MG ORAL CAPSULE [id number] CEFDINIR Inactive ZITHROMAX 250 MG ORAL TABLET 2 po today, then 1 po q days 2-5 20 13/08/10 ZITHROMAX 250 MG ORAL TABLET 738443 AZITHROMYCIN Greer ctive LEVAQUIN 500 MG ORAL TABLET 1 tablet by mouth daily 20 13/09/24 LEVAQUIN 500 MG ORAL TABLET 498412 LEVOFLOXACIN Inactive SINGULAIR 10 MG ORAL TABLET 1 po qday for allergies 20 14/01/12 SINGULAIR 10 MG ORAL TABLET 552197 MONTELUKAST SODIUM Inactive AMOXICILLIN 500 MG ORAL CAPSULE 2 po BID x 10 days 201 09/29/08 AMOXICILLIN 500 MG ORAL CAPSULE 091276 AMOXICILLIN Inactive PREDNISONE 20 MG ORAL TABLET 2 tabs daily for 3 days, 1 tab daily for 3 days, 1/2 tab daily for 2 days PREDNISONE 20 MG ORAL T ABLET 984184 PREDNISONE Inactive ZITHROMAX Z-REYNA 250 MG ORAL TABLET 2 today, then 1 daily for 4 d ays ZITHROMAX Z-REYNA 250 MG ORAL TABLET 094721 AZITHROMYCIN Inactive PREDNISONE 20 MG ORAL TABLET 2 tabs daily for 3 days, 1 tab daily for 3 days, 1/2 tab daily for 2 days PREDNISONE 20 MG ORAL T ABLET 205266 PREDNISONE Inactive ZITHROMAX 250 MG ORAL TABLET 2 po today, then 1 po q days 2-5 20 14/09/04 ZITHROMAX 250 MG ORAL TABLET 219211 AZ[facility]ROMYCIN [facility] AMOXICILLIN 500 MG ORAL CAPSULE 1 cap by mouth three times a day AMOXICILLIN 500 MG ORAL CAPSULE 233786 AMOXICILLIN Inactive TERBINAFINE HCL 250 MG ORAL TABLET 1 qDay for nail fungus 7 TERBINAFINE HCL 250 MG ORAL TABLET 624842 TERBINAFINE HCL Inact nael AUGMENTIN 875-125 MG ORAL TABLET 1 po BID x 10 days 16/03/22 AUGMENTIN 875-125 MG ORAL TABLET 838864 AMOXICILLIN-POT CLAVULANATE Inactive PREDNISONE 20 MG ORAL TABLET 2 po qd x 5 days PREDNISONE 20 MG ORAL TABLET 542297 PREDNISONE Inactive AZITHROMYCIN 250 MG ORAL TABLET 2 po qd x 1 day, then 1 po q d x 4 days AZITHROMYCIN 250 MG ORAL TABLET 656645 AZITHROMY GIOVANNI Inactive PREDNISONE 50 MG ORAL TABLET Take 50 mg dialy for 6 day s 7 PREDNISONE 50 MG ORAL TABLET 014230 PREDNISONE Inactive Vital Signs Date Name Value [...] - Chem istry sodium, serum 139 mmol/L 736-766 8218/03/19 potassium, serum 3.6 mmol/L 3.5-5.2 chloride, serum 100 mmol/L 98-107 carbon dioxide, venous blood 30.3 mmol/L 21.0-32 .0 blood glucose 101 mg/dL 65-110 calcium, serum 9.4 mg/dL 8.5-10.1 urea nitrogen, blood 10 mg/dL 7-18 creatinine, serum 0.96 mg/dL 0.60-1.30 sodium, serum 139 mmol/L 117-840 2980/10/12 potassium, serum 3.8 mmol/L 3.5-5.2 chloride, serum 102 mmol/L 98-107 carbon dioxide, venous blood 29.4 mmol/L 21.0-32 .0 blood glucose 103 mg/dL 65-95 calcium, serum 8.8 mg/dL 8.5-10.1 urea nitrogen, blood 10 mg/dL 7-18 creatinine, serum 0.97 mg/dL 0.60-1.30 Estimated Glomerular Filtration Rate (calc) 62 (?) mL/min/1.73m2 = OR > 60 mL/min Encounters Code Encounter Date Provider Facility CPT-92819 [id number] Vst-Est Level III 11:12:16 CDT Yanet Bess DO [facility] CPT-57248 Level 3 Est. Patient 11:34:49 PLATE GRAINER APPRENTICE Perez Mora MD [facility] CPT-81205 Level 4 Est. Patient 09:51:32 PLATE GRAINER APPRENTICE Carlton rich MD [facility] CPT-07032 Level 3 Est. Patient 10:26:00 PLATE GRAINER APPRENTICE Elise stephenson [facility] CPT-48313 Level 3 Est. Patient 13:35:41 PLATE GRAINER APPRENTICE Carlton rich MD [facility] CPT-83466 Level 3 Est. Patient 10:03:52 PLATE GRAINER APPRENTICE Carlton rich MD [facility] CPT-01774 Level 3 Est. Patient 12:17:50 CDT Hugo Restrepo MD [facility] CPT-45147 Level 3 Est. Patient 13:42:38 CDT Elise stephenson [facility] CPT-19554 Level 3 Est. Patient 13:23:51 CDT Diya cobian [facility]-80384 Level 3 Est. Patient 14:22:19 PLATE GRAINER APPRENTICE Diya cobian [facility] CPT-65841 Level 3 Est. Patient 10:11:46 CDT Carlton rich MD [facility] CPT-94770 Level 3 Est. Patient 17:29:43 CDT Elise Are ll ADMINISTRATIVE SUPPORT ASSISTANT [facility] CPT-74279 Level 3 Est. Patient 11:58:06 CDT Elise Are ll ADMINISTRATIVE SUPPORT ASSISTANT [facility] CPT-06822 Level 4 Est. Patient 14:36:51 CDT Carlton rich MD [facility] CPT-70461 Level 3 Est. Patient 18:16:00 PLATE GRAINER APPRENTICE [facility] CPT-09339 Level 3 Est. Patient 09:45:49 PLATE GRAINER APPRENTICE Carlton rich MD [facility] CPT-98726 Level 3 Est. Patient 13:19:20 CDT Carlton rich MD [facility] CPT-60312 Level 3 Est. Patient 13:06:43 CDT Ridge tam DO [facility] CPT-42860 Level 3 Est. Patient 10:03:07 CDT Perez Mora MD [facility] CPT-66563 Level 3 Est. Patient 19:50:35 PLATE GRAINER APPRENTICE Carlton rich MD [facility] CPT-06189 Level 4 Est. Patient 18:05:01 PLATE GRAINER APPRENTICE Carlton rich MD [facility] CPT-67500 Level 3 Est. Patient 10:45:55 PLATE GRAINER APPRENTICE Hugo Restrepo MD [facility] CPT-53633 Level 3 Est. Patient 14:12:49 CDT Griffin lincoln [facility] CPT-52533 Level 3 Est. Patient 17:37:24 CDT Carlton rich MD [facility] CPT-00616 Level 3 Est. Patient 16:51:54 CDT Carlton rich MD [facility] CPT-23737 Level 3 Est. Patient 12:18:11 CDT Hugo Restrepo MD [facility] CPT-15619 Level 3 Est. Patient 11:30:25 CDT Marcy crisostomo MD PhD [facility] CPT-64825 Level 3 Est. Patient 12:00:47 PLATE GRAINER APPRENTICE Carlton rich MD [facility] CPT-52758 Level 3 Est. Patient 16:31:06 PLATE GRAINER APPRENTICE Carlton rich MD [facility] CPT-28137 Level 3 Est. Patient 16:23:24 PLATE GRAINER APPRENTICE Ridge tam [facility] CPT-50335 Level 3 Est. Patient 12:34:12 CDT Carlton rich MD [facility] CPT-14840 Level 2 Est. Patient 15:43:33 CDT Robi armstrong MD [facility] CPT-82913 Level 4 Est. Patient 14:04:44 CDT Carlton rich MD [facility] CPT-54060 Level 3 Est. Patient 05:47:59 CDT Ridge tam [facility] CPT-55693 Level 3 Est. Patient 13:12:53 PLATE GRAINER APPRENTICE Carlton rich MD [facility] CPT-37971 Level 3 Est. Patient 14:26:53 CDT Hugo [...] CPT-J1100 Decadron 6mg (Dexamethasone) 14:32:13 CDT 2 CPT-65552 Hip bilat min 2V w AP pelvis 13:16:20 CDT 2 CPT-65538 Pelvis only 13:07:33 CDT CPT-33995 Spec Collection and Handling Fee 11:25:12 C DT CPT-18817 Fluzone Quadrivalent Intramuscular Suspe nsion 0.5 ML 14:31:55 CDT CPT-08590 Abx/Therapy Injection 13:28:47 PLATE GRAINER APPRENTICE CPT-J2930 Solu Medrol 125 mg (Methyl Prednisolone Sodium Succinate) 12:00:47 PLATE GRAINER APPRENTICE CPT-39610 Venipuncture Draw Fee 11:33:31 CDT CPT-18233 EKG Trac and Interp 11:21:09 CDT CPT-04960 Chest 2V Frontal and Lat 11:21:09 CDT 12/15 CPT-94469 Venipuncture Draw Fee 08:02:34 CDT CPT-40988 Chest 2V Frontal and Lat 05:47:59 CDT 06/05
--- OUTSIDE RECORDS SUMMARY | 2019-10-08 09:19 | XMS REPORT | Clinical Summary ---
Author Author Caitlin, Juliana Martinez Organization [facility] Address Unknown Phone Unavailable [...] URI 465.9 Inactive Ridge Bess DO Ac [place] upper respiratory infections of unspecified site Body [...] po q12hr PRN Cough HYDROCOD POLST-CHLORPHEN POLST 81547831738 Active David Marianne LAMP REPLACER Active AUGMENTIN 875-125 MG ORAL TABLET 1 po BID x 10 days 18/04/16 AMOXICILLIN-POT CLAVULANATE 05301512673 Active David Marianne LAMP REPLACER Active PREDNISONE 50 MG ORAL TABLET Take 50 mg dialy for 6 day s 7 PREDNISONE 66922293653 Active David Marianne LAMP REPLACER Active TUSSIONEX PENNKINETIC ER 10-8 MG/5ML ORAL SUSPENSION E XTENDED RELEASE 5ml po q12hr PRN Cough HYDROCOD POLST-CHLORPHEN POLST 5 8278670055 No Longer Active Cherelle Torres RN Active PREDNISONE 20 MG ORAL TABLET two tabs by mouth today, then one tab by mouth days two and three and four PREDNISONE 88140355813 No Lo nger Active Cherelle Torres RN Active AZITHROMYCIN 250 MG ORAL TABLET 2 po qd x 1 day, then 1 po q d x 4 days AZITHROMYCIN 37359735847 No Longer Active Ridge Bess DO Active PREDNISONE 20 MG ORAL TABLET 2 po qd x 5 days P REDNISONE 00052050049 No Longer Active Perez Moar MD Active PROAIR HFA 108 (90 BASE) MCG/ACT INHALATION AEROSOL SO LUTION 2 puffs four times a day as needed ALBUTEROL SULFATE 17105229053 No Long er Active Becky FUENTES Active ASPIRIN 81 MG ORAL TABLET 1 po qd ASPIRIN 99578292950 Active Carlton Hu MD Active PREDNISONE 20 MG ORAL TABLET 1 tab twice daily for 3 d ay, then one daily for three days PREDNISONE 97987382189 No Longer Active Carlton Hu MD Active AUGMENTIN 875-125 MG ORAL TABLET 1 po BID x 10 days 16/03/22 AMOXICILLIN-POT CLAVULANATE 58751110905 No Longer Active Elise Garcia APRN Active TERBINAFINE HCL 250 MG ORAL TABLET 1 qDay for nail fungus 7 TERBINAFINE HCL 36123001892 No Longer Active Carlton Hu MD A ctive AMOXICILLIN 500 MG ORAL CAPSULE 1 cap by mouth three times a day AMOXICILLIN 36267292773 No Longer Active Carlton Hu MD Active ELMIRON 100 MG ORAL CAPSULE 2 tablets in the am and 1 tablet at hs PENTOSAN POLYSULFATE SODIUM 45990912498 No Longer Active Robert Hu MD Active MUCINEX D 60-600 MG ORAL TABLET EXTENDED RELEASE 12 HOUR 1 t ab po q am PSEUDOEPHEDRINE-GUAIFENESIN 03115986558 No Longer Act nael Carlton Hu MD Active MUCINEX DM MAXIMUM STRENGTH 60-1200 MG ORAL TABLET EXT ENDED RELEASE 12 HOUR 1 tab po q am DEXTROMETHORPHAN-GUAIFENESIN 75255397622 No Longer Active Carlton Hu MD Active TUSSIONEX PENNKINETIC ER 10-8 MG/5ML ORAL SUSPENSION E XTENDED RELEASE 5ml po q12hr PRN Cough HYDROCOD POLST-CHLORPHEN POLST 5 8386723926 No Longer Active Carlton Hu MD Active POTASSIUM CHLORIDE ER 20 MEQ ORAL TABLET EXTENDED RELE ASE Take 1 by mouth 4 times daily for 7 days POTASSIUM CHLORIDE 28022864556 No Longer Active Carlton Hu MD Active ZITHROMAX 250 MG ORAL TABLET 2 po today, then 1 po q days 2-5 20 14/09/04 AZITHROMYCIN 55695153290 No Longer Active Elise Garcia APRN Active TUSSIONEX PENNKINETIC ER 10-8 MG/5ML ORAL SUSPENSION E XTENDED RELEASE 5 ml twice a day as needed for cough HYDROCOD POLST-CHLORPH EN POLST 42703545511 No Longer Active Elise Garcia APRN Active MONTELUKAST SODIUM 10 MG ORAL TABLET 1 po daily for Allergy MONTELUKAST SODIUM 27513904902 Active Carlton Hu MD Ac tive TUSSIONEX PENNKINETIC ER 10-8 MG/5ML ORAL SUSPENSION E XTENDED RELEASE 5ml po q12hr PRN Cough HYDROCOD POLST-CHLORPHEN POLST 5 1281420013 No Longer Active Hugo Restrepo MD Active GABAPENTIN 100 MG ORAL CAPSULE 1 po BID for fibromyalgia GABAPENTIN 43158491395 Active Carlton Hu MD Active LYRICA 100 MG ORAL CAPSULE Take 1 tab po BID for fibromyalgia 20 11/08/21 PREGABALIN 96366988821 No Longer Active Elise Garcia APRN A ctive PREDNISONE 20 MG ORAL TABLET 2 tabs daily for 3 days, 1 tab daily for 3 days, 1/2 tab daily for 2 days PREDNISONE 91526603828 No Longer Active Diya De Guzman APRN Active TUSSIONEX PENNKINETIC ER 10-8 MG/5ML ORAL SUSPENSION E XTENDED RELEASE 5 mL PO q 12 hrs PRN cough HYDROCOD POLST-CHLORPHEN POLST 176008 84178 No Longer Active Jillina Frazell BILL Active FLUTICASONE PROPIONATE 50 MCG/ACT NASAL SUSPENSION 2 s prays each nostril daily until bottle is empty FLUTICASONE PROPIONATE 958749064 99 No Longer Active Jillina Frazell LAMP REPLACER Active ASMANEX 60 METERED DOSES 220 MCG/INH INHALATION AEROSO L POWDER BREATH ACTIVATED 1 puff bid with rinse after MOMETASONE FUROATE 3804531 4102 No Longer Active Diya De Guzman APRN Active ZITHROMAX Z-REYNA 250 MG ORAL TABLET 2 today, then 1 daily for 4 d ays AZITHROMYCIN 09188605347 No Longer Active Elise Garcia APRN Active TUSSIONEX PENNKINETIC ER 10-8 MG/5ML ORAL SUSPENSION E XTENDED RELEASE 5ml po q12hr PRN Cough HYDROCOD POLST-CHLORPHEN POLST 5 6448496387 No Longer Active Elise Garcia APRN Active PREDNISONE 20 MG ORAL TABLET 2 tabs daily for 3 days, 1 tab daily for 3 days, 1/2 tab daily for 2 days PREDNISONE 35864897568 No Longer Active Diya De Guzman APRN Active AMOXICILLIN 500 MG ORAL CAPSULE 2 po BID x 10 days 201 09/29/08 AMOXICILLIN 66666601346 No Longer Active Diya De Guzman APRN Act nael SINGULAIR 10 MG ORAL TABLET 1 po qday for allergies 20 14/01/12 MONTELUKAST SODIUM 04168778644 No Longer Active Carlton Hu MD Active LEVAQUIN 500 MG ORAL TABLET 1 tablet by mouth daily 20 13/09/24 LEVOFLOXACIN 75953098536 No Longer Active Carlton Hu MD Acti ve FLUTICASONE PROPIONATE 50 MCG/ACT NASAL SUSPENSION 2 s prays each nostril daily for 2 weeks, then 1 spray each nostril daily. FLUTICASONE PROPIONATE 06239840354 Active ALFREDO Holly Active ZITHROMAX 250 MG ORAL TABLET 2 po today, then 1 po q days 2-5 20 13/08/10 AZITHROMYCIN 94224154089 No Longer Active Elise Garcia APRN Active XANAX 0.5 MG ORAL TABLET one tablet by mouth daily prn anxiety 2015 ALPRAZOLAM 73155267916 Active ALFREDO Holly Active CYMBALTA 30 MG ORAL CAPSULE DELAYED RELEASE PARTICLES 1 cap by mouth daily for depression DULOXETINE HCL 35295901718 Active Maria Luisa Sanabria, RMA Active CEFDINIR 300 MG ORAL CAPSULE 1 po BID x 10 days CEFDINIR 32000582680 No Longer Active Carlton Hu MD Active ZOCOR 40 MG ORAL TABLET 1 tab by mouth daily SI MVASTATIN 13549846844 No Longer Active Carlton Hu MD Active CYCLOBENZAPRINE HCL 10 MG ORAL TABLET 1 tablet by mouth BID prn had pain CYCLOBENZAPRINE HCL 53478341542 No Longer Active Jayden Hu MD Active LEVOFLOXACIN 500 MG ORAL TABLET 1 tab PO daily x 10 days LEVOFLOXACIN 59339951139 No Longer Active Carlotn Hu MD Acti ve PREDNISONE 20 MG ORAL TABLET 3 tab PO qd x 2d, 2 tab P O qd x 2d, 1 tab PO qd x 2d, 1/2 tab PO qd x 2d PREDNISONE 26829989030 No Lo nger Active Carlton Hu MD Active FLUTICASONE PROPIONATE 50 MCG/ACT NASAL SUSPENSION 1 t o 2 sprays each nostril daily FLUTICASONE PROPIONATE 25904071772 No Longer Ac tive Blaine HERNANDEZ Active CHERATUSSIN AC 100-10 MG/5ML ORAL SYRUP 1 tsp by mouth every 4 hours as needed for cough GUAIFENESIN-CODEINE 87436725152 No Longe r Active Blaine HERNANDEZ Active PROMETHAZINE-CODEINE 6.25-10 MG/5ML ORAL SYRUP 1 tsp b y mouth every 6 hours if needed for cough PROMETHAZINE-CODEINE 67010866429 No Longer Active Blaine HERNANDEZ Active CHERATUSSIN AC 100-10 MG/5ML ORAL SYRUP 1 tsp by mouth every 4 hours as needed for cough GUAIFENESIN-CODEINE 69836148615 No Longe r Active Blaine HERNANDEZ Active ZITHROMAX Z-REYNA 250 MG ORAL TABLET 2 today, then 1 daily for 4 d ays AZITHROMYCIN 39804287389 No Longer Active Columba Raida Act nael ZITHROMAX 250 MG ORAL TABLET 2 po today, then 1 po q days 2-5 20 14/03/21 AZITHROMYCIN 56834790637 No Longer Active Carlton Hu MD Active ZITHROMAX Z-REYNA 250 MG ORAL TABLET 2 today, then 1 daily for 4 d ays AZITHROMYCIN 44259790791 No Longer Active Columba Raida Act nael AUGMENTIN 875-125 MG ORAL TABLET 1 po BID x 10 days 13/01/20 AMOXICILLIN-POT CLAVULANATE 48430857513 No Longer Active Diya De Guzman LAMP REPLACER Active ZITHROMAX 250 MG ORAL TABLET 2 po today, then 1 po q days 2-5 12/08/14 AZITHROMYCIN 72553971228 No Longer Active Carlton Hu MD Active TRAMADOL HCL 50 MG ORAL TABLET 1 po tid with ES Tylenol TRAMADOL HCL 64931276183 Active Adrienne Galvez CHIEF DIGITAL OFFICER Active PREMARIN 0.625 MG ORAL TABLET TAKE 1 TAB BY MOUTH DAILY ESTROGENS CONJUGATED 54998923641 No Longer Active Ridge Bess DO A ctive CYMBALTA 30 MG ORAL CAPSULE DELAYED RELEASE PARTICLES 1 cap by mouth daily DULOXETINE HCL 87345958105 No Longer Active Ridge Ya ee DO Active AMOXICILLIN 500 MG ORAL CAPSULE 1 tab by mouth 3 times daily x 10 days AMOXICILLIN 36003929063 No Longer Active Carlton bustamante MD Active AMOXICILLIN 500 MG ORAL CAPSULE 1 tab by mouth 3 times daily x 10 days AMOXICILLIN 24572890433 No Longer Active Carlton bustamante MD Active PROMETHAZINE-CODEINE 6.25-10 MG/5ML ORAL SYRUP 1 tsp b y mouth every 8 hours prn cough PROMETHAZINE-CODEINE 51283348246 No Longer Acti ve Carlton Hu MD Active MEDROL 4 MG ORAL TABLET THERAPY PACK 6 pills x 1 day, then 5 pills x 1 day then 4 pills x 1 day, then 3 pills x 1 day, then 2 pills x 1 day, then 1 pill x 1 day, then stop METHYLPREDNISOLONE 73507950644 No Long er Active Perez Mora MD Active AZITHROMYCIN 250 MG ORAL TABLET 2 po qd x 1 day, then 1 po q d x 4 days AZITHROMYCIN 32985366971 No Longer Active Perez Ambriz MD Active SYMBICORT 160-4.5 MCG/ACT INHALATION AEROSOL 2 puffs bid wit h rinse after BUDESONIDE-FORMOTEROL FUMARATE 00687819720 N o Longer Active Perez Mora MD Active LYRICA 75 MG ORAL CAPSULE TAKE 1 CAPSULE BY MOUTH TWICE DAILY PREGABALIN 05745082069 No Longer Active Carlton Hu MD Acti ve TOPAMAX 25 MG ORAL TABLET 1 qHS x 1 week, then 1 BID x 1 week, then 1 qAM and 2 qHS x 1 week, then 2 BID (migraine prevention) T OPIRAMATE 29661971371 No Longer Active Jerica FUENTES Active TOPAMAX 50 MG ORAL TABLET take 1 tab po BID for migraines. 07/02 TOPIRAMATE 99400776175 No Longer Active Jerica FUENTES Active TOPAMAX 100 MG ORAL TABLET Take 1 tablet po bid TO PIRAMATE 99723719054 Active ALFREDO Holly Active TRIAMCINOLONE ACETONIDE 0.1 % EXTERNAL CREAM apply three roger es daily prn rash TRIAMCINOLONE ACETONIDE 00172753629 No Longer Active Carlton Hu MD Active PAXIL 40 MG ORAL TABLET take 1 tab po qday for depression 0 PAROXETINE HCL 44752060877 Active ALFREDO Holly Active CHERATUSSIN AC 100-10 MG/5ML ORAL SYRUP 5ml po q6hr PRN Cough 20 13/04/14 GUAIFENESIN-CODEINE 97691969041 No Longer Active Carlton Hu MD Active MEDROL 4 MG ORAL TABLET THERAPY PACK 6 tabs on day 1, 5 tabs on day 2, 4 tabs on day 3, 3 tabs on day 4, 2 tabs on day 5, 1 tab on day 6 2013 METHYLPREDNISOLONE 34516549590 No Longer Active Perez Mora MD Active AZITHROMYCIN 250 MG ORAL TABLET 2 po qd x 1 day, then 1 po q d x 4 days AZITHROMYCIN 74780397562 No Longer Active Preez Ambriz MD Active PROPRANOLOL HCL 60 MG ORAL TABLET 1 PO Q D PROPRANOLOL HCL 14281330649 No Longer Active Perez Mora MD Activ e CHERATUSSIN AC 100-10 MG/5ML ORAL SYRUP take one tsp po Q 6h ours prn cough GUAIFENESIN-CODEINE 12844712559 No Longer Active Zia Mora MD Active AUGMENTIN 875-125 MG ORAL TABLET 1 tab by mouth twice daily with food AMOXICILLIN-POT CLAVULANATE 89362054000 No Longer Act nael Perez Mora MD Active CHERATUSSIN AC 100-10 MG/5ML ORAL SYRUP 1 tsp by mouth every 4 hours as needed for cough GUAIFENESIN-CODEINE 81505627676 No Longe r Active Hugo Restrepo MD Active ACETAMINOPHEN-CODEINE #3 300-30 MG ORAL TABLET 1 PO Q 4-6 HRS [place] PAIN ACETAMINOPHEN-CODEINE 44580706389 No Longer Active Hugo Restrepo MD Active LEVAQUIN 500 MG ORAL TABLET take one po QD LEVO FLOXACIN 59298037350 No Longer Active Griffin HERNANDEZ Active PREDNISONE 20 MG ORAL TABLET Take 3 tabs daily for 3 d ays, 2 tabs daily for 3 days, 1 tab daily for 3 days, 1/2 tab daily for 3 days 11/07 PREDNISONE 04854829130 No Longer Active Carlton Hu MD Acti ve AVELOX 400 MG ORAL TABLET 1 tab by mouth daily MOXIFLOXACIN HCL 74038752588 No Longer Active Carlton Hu MD Active CHERATUSSIN AC 100-10 MG/5ML ORAL SYRUP 1 tsp by mouth every 4 hours as needed for cough GUAIFENESIN-CODEINE 56130367179 No Longe r Active Hugo Restrepo MD Active AVELOX 400 MG ORAL TABLET 1 tab by mouth daily MOXIFLOXACIN HCL 85768355772 No Longer Active Marcy De La Rosa MD PhD Active TERBINAFINE HCL 250 MG ORAL TABLET 1 qDay T ERBINAFINE HCL 49065913063 No Longer Active Marcy De La Rosa MD PhD Active CHERATUSSIN AC 100-10 MG/5ML ORAL SYRUP 1 tsp by mouth every 4 hours as needed for cough GUAIFENESIN-CODEINE 60431694652 No Longe r Active Marcy De La Rosa MD PhD Active AVELOX 400 MG ORAL TABLET 1 tab by mouth daily MOXIFLOXACIN HCL 21340527764 No Longer Active Marcy De La Rosa MD PhD Active HYDROCODONE-ACETAMINOPHEN 5-325 MG ORAL TABLET 1 po q 6hr PRN co ugh HYDROCODONE-ACETAMINOPHEN 52958894233 No Longer Active Marcy De La Rosa MD PhD Active PREDNISONE 20 MG ORAL TABLET 2 tabs daily for 3 days, 1 tab daily for 3 days, 1/2 tab daily for 2 days PREDNISONE 50541520055 No Longer Active Carlton Hu MD Active CEFDINIR 300 MG ORAL CAPSULE by mouth twice a day 2011 CEFDINIR 32456010230 No Longer Active Carlton Hu MD Acti ve HYDROCHLOROTHIAZIDE 25 MG ORAL TABLET 1 TAB PO DAILY HYDROCHLOROTHIAZIDE 88271022135 Active ALFREDO Holly tive ACETAMINOPHEN-CODEINE #3 300-30 MG ORAL TABLET 1 tablet po q 4-6 hrs prn pain ACETAMINOPHEN-CODEINE 78481652453 No Longer Active Ridge Bess DO Active ZITHROMAX 250 MG ORAL TABLET 2 po today, then 1 po q days 2-5 20 03/07/07 AZITHROMYCIN 36335500461 No Longer Active Carlton Hu MD Active CHERATUSSIN AC 100-10 MG/5ML ORAL SYRUP take 1 tsp po q4-6 h ours prn cough GUAIFENESIN-CODEINE 53404377803 No Longer Active Jayden Hu MD Active ACETAMINOPHEN-CODEINE #3 300-30 MG ORAL TABLET 1 PO Q 4-6 HR PRN PAIN ACETAMINOPHEN-CODEINE 52205045004 No Longer Active Arnol Hu MD Active LORTAB 7.5-500 MG/15ML ORAL ELIXIR 7.5 ml po q 4 hour prn cough HYDROCODONE-ACETAMINOPHEN 29561789830 No Longer Active Carlton Hu MD Active PREDNISONE 20 MG ORAL TABLET 1 po bid 3 days, then 1 po q day 3 days PREDNISONE 91133808769 No Longer Active Carlton Hu MD Active CEFDINIR 300 MG ORAL CAPSULE by mouth twice a day 2011 CEFDINIR 98644174799 No Longer Active Carlton Hu MD Acti ve CEFDINIR 300 MG ORAL CAPSULE by mouth twice a day 2010 CEFDINIR 14244022871 No Longer Active Carlton Hu MD Acti ve CEFDINIR 300 MG ORAL CAPSULE by mouth twice a day 2010 CEFDINIR 95538367830 No Longer Active Carlton Hu MD Acti ve TESSALON PERLES 100 MG ORAL CAPSULE 1 tablet by mouth 3 times daily as needed for cough BENZONATATE 29704220706 No Longer Active Carlton Hu MD Active CEFDINIR 300 MG ORAL CAPSULE by mouth twice a day 2010 CEFDINIR 64967321729 No Longer Active Carlton Hu MD Acti ve ZITHROMAX Z-REYNA 250 MG ORAL TABLET 2 today, then 1 daily for 4 d ays AZITHROMYCIN 57133064215 No Longer Active Hugo Restrepo MD Active TESSALON PERLES 100 MG ORAL CAPSULE 1 tablet by mouth 3 times daily as needed for cough ROLFSALBARRON PERLES 100 MG ORAL CAPSULE 19970 7 BENZONATATE Inactive PREDNISONE 20 MG ORAL TABLET 1 po bid 3 days, then 1 po q day 3 days PREDNISONE 20 MG ORAL TABLET 666302 PREDNISONE Greer ctive LORTAB 7.5-500 MG/15ML ORAL [...] cough CHERATUSSIN AC 100-10 MG/5ML ORAL SYRUP 611745 GUAIFENESIN-CODEINE Inactive ACETAMINOPHEN-CODEINE #3 300-30 MG ORAL TABLET 1 tablet po q 4-6 hrs prn pain ACETAMINOPHEN-CODEINE #3 300-30 MG ORAL TABLET ACETAMINOPHEN-CODEINE Inactive HYDROCODONE-ACETAMINOPHEN 5-325 MG ORAL TABLET 1 po q 6hr PRN co ugh HYDROCODONE-ACETAMINOPHEN 5-325 MG ORAL TABLET 809118 HYDROCODONE-ACETAMINOPHEN Inactive AVELOX 400 MG ORAL TABLET 1 tab by mouth daily AVELOX 400 MG ORAL TABLET 858356 MOXIFLOXACIN HCL Inactive CHERATUSSIN AC 100-10 MG/5ML ORAL SYRUP 1 tsp by mouth every 4 hours as needed for cough CHERATUSSIN AC 100-10 MG/5ML ORAL SYRUP 9 58104 GUAIFENESIN-CODEINE Inactive TERBINAFINE HCL 250 MG ORAL TABLET 1 qDay 07/08 TERBINAFINE HCL 250 MG ORAL TABLET 442799 TERBINAFINE HCL Inactive CHERATUSSIN AC 100-10 MG/5ML ORAL SYRUP 1 tsp by mouth every 4 hours as needed for cough CHERATUSSIN AC 100-10 MG/5ML ORAL SYRUP 9 37027 GUAIFENESIN-CODEINE Inactive ACETAMINOPHEN-CODEINE #3 300-30 MG ORAL TABLET 1 PO Q 4-6 HRS [place] ACETAMINOPHEN-CODEINE #3 300-30 MG ORAL TABLET ACETAMINOPHEN-CODEINE Inactive CHERATUSSIN AC 100-10 MG/5ML ORAL SYRUP 1 tsp by mouth every 4 hours as needed for cough CHERATUSSIN AC 100-10 MG/5ML ORAL SYRUP 9 77796 GUAIFENESIN-CODEINE Inactive AUGMENTIN 875-125 MG ORAL TABLET 1 tab by mouth twice daily with food AUGMENTIN 875-125 MG ORAL TABLET 716102 AMOXICIL MADELINE-POT CLAVULANATE Inactive CHERATUSSIN AC 100-10 MG/5ML ORAL SYRUP take one tsp po Q 6h ours prn cough CHERATUSSIN AC 100-10 MG/5ML ORAL SYRUP 997164 GUAIFENESIN-CODEINE Inactive PROPRANOLOL HCL 60 MG ORAL TABLET 1 PO Q D PROPRANOLOL HCL 60 MG ORAL TABLET 656298 PROPRANOLOL HCL Inactive TOPAMAX 50 MG ORAL TABLET take 1 tab po BID for migraines. 07/02 TOPAMAX 50 MG ORAL TABLET 047966 TOPIRAMATE Inacti ve TOPAMAX 25 MG ORAL TABLET 1 qHS x 1 week, then 1 BID x 1 week, then 1 qAM and 2 qHS x 1 week, then 2 BID (migraine prevention) TOPAMAX 25 MG ORAL TABLET 654401 TOPIRAMATE Inactive LYRICA 75 MG ORAL CAPSULE TAKE 1 CAPSULE BY MOUTH TWICE DAILY LYRICA 75 MG ORAL CAPSULE PREGABALIN Inactive SYMBICORT 160-4.5 MCG/ACT INHALATION AEROSOL 2 puffs bid wit h rinse after SYMBICORT 160-4.5 MCG/ACT INHALATION AEROSOL BUDESONIDE- FORMOTEROL FUMARATE Inactive PROMETHAZINE-CODEINE 6.25-10 MG/5ML ORAL SYRUP 1 tsp b y mouth every 8 hours prn cough PROMETHAZINE-CODEINE 6.25-10 MG/ 5ML ORAL SYRUP 535602 PROMETHAZINE-CODEINE Inactive CYMBALTA 30 MG ORAL CAPSULE DELAYED RELEASE PARTICLES 1 cap by mouth daily CYMBALTA 30 MG ORAL CAPSULE DELAYED RELE ASE PARTICLES 203678 DULOXETINE HCL Inactive PREMARIN 0.625 MG ORAL TABLET TAKE 1 TAB BY MOUTH DAILY PREMARIN 0.625 MG ORAL TABLET ESTROGENS CONJUGATED Inactive CHERATUSSIN AC 100-10 MG/5ML ORAL SYRUP 1 tsp by mouth every 4 hours as needed for cough CHERATUSSIN AC 100-10 MG/5ML ORAL SYRUP 9 90390 GUAIFENESIN-CODEINE Inactive PROMETHAZINE-CODEINE 6.25-10 MG/5ML ORAL SYRUP 1 tsp b y mouth every 6 hours if needed for cough PROMETHAZINE-CODEINE 6.25-10 MG/5ML ORAL SYRUP 395929 PROMETHAZINE-CODEINE Inactive CHERATUSSIN AC 100-10 MG/5ML ORAL SYRUP 1 tsp by mouth every 4 hours as needed for cough CHERATUSSIN AC 100-10 MG/5ML ORAL SYRUP 9 38398 GUAIFENESIN-CODEINE Inactive FLUTICASONE PROPIONATE 50 MCG/ACT NASAL SUSPENSION 1 t o 2 sprays each nostril daily FLUTICASONE PROPIONATE 50 MCG/AC T NASAL SUSPENSION 2234373 FLUTICASONE PROPIONATE Inactive PREDNISONE 20 MG ORAL TABLET 3 tab PO qd x 2d, 2 tab P O qd x 2d, 1 tab PO qd x 2d, 1/2 tab PO qd x 2d PREDNISONE 20 MG ORAL TAB LET 866283 PREDNISONE Inactive LEVOFLOXACIN 500 MG ORAL TABLET 1 tab PO daily x 10 days LEVOFLOXACIN 500 MG ORAL TABLET 795702 LEVOFLOXACIN Inactive CYCLOBENZAPRINE HCL 10 MG ORAL TABLET 1 tablet by mouth BID prn had pain CYCLOBENZAPRINE HCL 10 MG ORAL TABLET 548234 CYCLOBENZAPRINE HCL Inactive ZOCOR 40 MG ORAL TABLET 1 tab by mouth daily 4 ZOCOR 40 MG ORAL TABLET 848427 SIMVASTATIN Inactive TUSSIONEX PENNKINETIC ER 10-8 MG/5ML [...] FLUTICASONE PROPIO EFE 50 MCG/ACT NASAL SUSPENSION 0193712 FLUTICASONE PROPIONATE Inactive TUSSIONEX PENNKINETIC ER 10-8 [...] three days PREDNISONE 20 MG ORAL TABLET 108159 PREDNIS ONE Inactive PROAIR HFA 108 (90 BASE) MCG/ACT INHALATION AEROSOL SO LUTION 2 puffs four times a day as needed PROAIR HFA 108 (90 B ASE) MCG/ACT INHALATION AEROSOL SOLUTION ALBUTEROL SULFATE Inactive PREDNISONE 20 MG ORAL TABLET two tabs by mouth today, then one tab by mouth days two and three and four PREDNISONE 20 MG ORAL TAB LET 866313 PREDNISONE Inactive TUSSIONEX PENNKINETIC ER 10-8 MG/5ML ORAL SUSPENSION E XTENDED RELEASE 5ml po q12hr PRN Cough TUSSIONEX PENNKINETI C ER 10-8 MG/5ML ORAL SUSPENSION EXTENDED RELEASE HYDROCOD POLST-CHLORPHEN POLST I nactive ZITHROMAX Z-REYNA 250 MG ORAL TABLET 2 today, then 1 daily for 4 d ays ZITHROMAX Z-REYNA 250 MG ORAL TABLET 501566 AZITHROMYCIN Inactive CEFDINIR 300 MG ORAL CAPSULE [...] day 2011 CEFDINIR 300 MG ORAL CAPSULE 646421 CEFDINIR Inactive ZITHROMAX 250 MG ORAL TABLET 2 po today, then 1 po q days 2-5 03/07/07 ZITHROMAX 250 MG ORAL TABLET 760199 AZITHROMYCIN Greer ctive CEFDINIR 300 MG ORAL CAPSULE by mouth twice a day 2011 CEFDINIR 300 MG ORAL CAPSULE 20020704 CEFDINIR Inactive PREDNISONE 20 MG ORAL TABLET 2 tabs daily for 3 days, 1 tab daily for 3 days, 1/2 tab daily for 2 days PREDNISONE 20 MG ORAL T ABLET 962649 PREDNISONE Inactive AVELOX 400 MG ORAL TABLET 1 tab by mouth daily AVELOX 400 MG ORAL TABLET 641265 MOXIFLOXACIN HCL Inactive AVELOX 400 MG ORAL TABLET 1 tab by mouth daily AVELOX 400 MG ORAL TABLET 646829 MOXIFLOXACIN HCL Inactive PREDNISONE 20 MG ORAL TABLET Take 3 tabs daily for 3 d ays, 2 tabs daily for 3 days, 1 tab daily for 3 days, 1/2 tab daily for 3 days 11/07 PREDNISONE 20 MG ORAL TABLET 822163 PREDNISONE Inactive LEVAQUIN 500 MG ORAL TABLET take one po QD LEVAQUIN 500 MG ORAL TABLET 854365 LEVOFLOXACIN Inactive AZITHROMYCIN 250 MG ORAL TABLET 2 po qd x 1 day, then 1 po q d x 4 days AZITHROMYCIN 250 MG ORAL TABLET 819299 AZITHROMY GIOVANNI Inactive MEDROL 4 MG ORAL TABLET THERAPY PACK 6 tabs on day 1, 5 tabs on day 2, 4 tabs on day 3, 3 tabs on day 4, 2 tabs on day 5, 1 tab on day 6 2013 MEDROL 4 MG ORAL TABLET THERAPY PACK 747236 METHYLPREDNISOLONE [place] ctive CHERATUSSIN AC 100-10 MG/5ML ORAL SYRUP 5ml po q6hr PRN Cough 20 13/04/14 CHERATUSSIN AC 100-10 MG/5ML ORAL SYRUP 800498 GUAIFENE SIN-CODEINE Inactive TRIAMCINOLONE ACETONIDE 0.1 % EXTERNAL CREAM apply three roger es daily prn rash TRIAMCINOLONE ACETONIDE 0.1 % EXTERNAL CREAM 101 4314 TRIAMCINOLONE ACETONIDE Inactive AZITHROMYCIN 250 MG ORAL TABLET 2 po qd x 1 day, then 1 po q d x 4 days AZITHROMYCIN 250 MG ORAL TABLET 975071 AZITHROMY GIOVANNI Inactive MEDROL 4 MG ORAL TABLET THERAPY PACK 6 pills x 1 day, then 5 pills x 1 day then 4 pills x 1 day, then 3 pills x 1 day, then 2 pills x 1 day, then 1 pill x 1 day, then stop MEDROL 4 MG ORAL TABLET THERAPY PACK 554961 METHYLPREDNISOLONE Inactive AMOXICILLIN 500 MG ORAL CAPSULE 1 tab by mouth 3 times daily x 10 days AMOXICILLIN 500 MG ORAL CAPSULE 480556 AMOXICILL IN Inactive AMOXICILLIN 500 MG ORAL CAPSULE 1 tab by mouth 3 times daily x 10 days AMOXICILLIN 500 MG ORAL CAPSULE 722577 AMOXICILL IN Inactive ZITHROMAX 250 MG ORAL TABLET 2 po today, then 1 po q days 2-5 20 12/08/14 ZITHROMAX 250 MG ORAL TABLET 785305 AZITHROMYCIN [place] ctive AUGMENTIN 875-125 MG ORAL TABLET 1 po BID x 10 days 20 13/01/20 AUGMENTIN 875-125 MG ORAL TABLET 193559 AMOXICILLIN-POT CLAVULANATE Inactive ZITHROMAX Z-REYNA 250 MG ORAL TABLET 2 today, then 1 daily for 4 d ays ZITHROMAX Z-REYNA 250 MG ORAL TABLET 356952 AZITHROMYCIN Inactive ZITHROMAX 250 MG ORAL TABLET 2 po today, then 1 po q days 2-5 20 14/03/21 ZITHROMAX 250 MG ORAL TABLET 702939 AZITHROMYCIN Greer ctive ZITHROMAX Z-REYNA 250 MG ORAL TABLET 2 today, then 1 daily for 4 d ays ZITHROMAX Z-REYNA 250 MG ORAL TABLET 308486 AZITHROMYCIN Inactive CEFDINIR 300 MG ORAL CAPSULE 1 po BID x 10 days 06/21 CEFDINIR 300 MG ORAL CAPSULE [id number] CEFDINIR Inactive ZITHROMAX 250 MG ORAL TABLET 2 po today, then 1 po q days 2-5 20 13/08/10 ZITHROMAX 250 MG ORAL TABLET 871391 AZITHROMYCIN Greer ctive LEVAQUIN 500 MG ORAL TABLET 1 tablet by mouth daily 13/09/24 LEVAQUIN 500 MG ORAL TABLET 338015 LEVOFLOXACIN Inactive SINGULAIR 10 MG ORAL TABLET 1 po qday for allergies 20 14/01/12 SINGULAIR 10 MG ORAL TABLET 578825 MONTELUKAST SODIUM Inactive AMOXICILLIN 500 MG ORAL CAPSULE 2 po BID x 10 days 201 09/29/08 AMOXICILLIN 500 MG ORAL CAPSULE 199013 AMOXICILLIN Inactive PREDNISONE 20 MG ORAL TABLET 2 tabs daily for 3 days, 1 tab daily for 3 days, 1/2 tab daily for 2 days PREDNISONE 20 MG ORAL T ABLET 349557 PREDNISONE Inactive ZITHROMAX Z-REYNA 250 MG ORAL TABLET 2 today, then 1 daily for 4 d ays ZITHROMAX Z-REYNA 250 MG ORAL TABLET 136630 AZITHROMYCIN Inactive PREDNISONE 20 MG ORAL TABLET 2 tabs daily for 3 days, 1 tab daily for 3 days, 1/2 tab daily for 2 days PREDNISONE 20 MG ORAL T ABLET [id number] PREDNISONE Inactive ZITHROMAX 250 MG ORAL TABLET 2 po today, then 1 po q days 2-5 20 14/09/04 ZITHROMAX 250 MG ORAL TABLET 087205 AZITHROMYCIN [facility] AMOXICILLIN 500 MG ORAL CAPSULE 1 cap by mouth three times a day AMOXICILLIN 500 MG ORAL CAPSULE 119928 AMOXICILLIN Inactive TERBINAFINE HCL 250 MG ORAL TABLET 1 qDay for nail fungus 7 TERBINAFINE HCL 250 MG ORAL TABLET 744717 TERBINAFINE HCL Inact nael AUGMENTIN 875-125 MG ORAL TABLET 1 po BID x 10 days 16/03/22 AUGMENTIN 875-125 MG ORAL TABLET 698191 AMOXICILLIN-POT CLAVULANATE Inactive PREDNISONE 20 MG ORAL TABLET 2 po qd x 5 days PREDNISONE 20 MG ORAL TABLET 356736 PREDNISONE Inactive AZITHROMYCIN 250 MG ORAL TABLET 2 po qd x 1 day, then 1 po q d x 4 days AZITHROMYCIN 250 MG ORAL TABLET 773220 AZITHROMY GIOVANNI Inactive Vital Signs Date Name Value Unit [...] - Chem istry sodium, serum 139 mmol/L 296-246 4421/03/19 potassium, serum 3.6 mmol/L 3.5-5.2 chloride, serum 100 mmol/L 98-107 carbon dioxide, venous blood 30.3 mmol/L 21.0-32 .0 blood glucose 101 mg/dL 65-110 calcium, serum 9.4 mg/dL 8.5-10.1 urea nitrogen, blood 10 mg/dL 7-18 creatinine, serum 0.96 mg/dL 0.60-1.30 sodium, serum 139 mmol/L 889-148 4771/10/12 potassium, serum 3.8 mmol/L 3.5-5.2 chloride, serum 102 mmol/L 98-107 carbon dioxide, venous blood 29.4 mmol/L 21.0-32 .0 blood glucose 103 mg/dL 65-95 calcium, serum 8.8 mg/dL 8.5-10.1 urea nitrogen, blood 10 mg/dL 7-18 creatinine, serum 0.97 mg/dL 0.60-1.30 Estimated Glomerular Filtration Rate (calc) 62 (?) mL/min/1.73m2 = OR > 60 mL/min Encounters Code Encounter Date Provider Facility CPT-02617 [id number] Vst-Est Level III 11:12:16 CDT Yanet Bess DO [facility]-77265 Level 3 Est. Patient 11:34:49 BODY WIRER Perez Mora MD [facility]-08692 Level 4 Est. Patient 09:51:32 BODY WIRER Carlton rich MD [facility]-68851 Level 3 Est. Patient 10:26:00 BODY WIRER Elise stephenson [facility]-64784 Level 3 Est. Patient 13:35:41 BODY WIRER Carlton rich MD [facility]-97509 Level 3 Est. Patient 10:03:52 BODY WIRER Carlton rich MD [facility]-59029 Level 3 Est. Patient 12:17:50 CDT Hugo Restrepo MD [facility]-52818 Level 3 Est. Patient 13:42:38 CDT Elise stephenson [facility]-18562 Level 3 Est. Patient 13:23:51 CDT Diya cobian [facility]-36791 Level 3 Est. Patient 14:22:19 BODY WIRER Diya cobian [facility]-30184 Level 3 Est. Patient 10:11:46 CDT Carlton rich MD [facility]-96881 Level 3 Est. Patient 17:29:43 CDT Elise Are ll LAMP REPLACER [facility] CPT-94388 Level 3 Est. Patient 11:58:06 CDT Elise Are ll LAMP REPLACER [facility] CPT-83388 Level 4 Est. Patient 14:36:51 CDT Carlton rich MD [facility] CPT-33847 Level 3 Est. Patient 18:16:00 BODY WIRER Blaine Freeman [facility] CPT-76444 Level 3 Est. Patient 09:45:49 BODY WIRER Carlton rich MD [facility] CPT-02649 Level 3 Est. Patient 13:19:20 CDT Carlton rich MD [facility]-81520 Level 3 Est. Patient 13:06:43 CDT Ridge tam DO [facility] CPT-97776 Level 3 Est. Patient 10:03:07 CDT Perez Mora MD [facility] CPT-48972 Level 3 Est. Patient 19:50:35 BODY WIRER Carlton rich MD [facility] CPT-07537 Level 4 Est. Patient 18:05:01 BODY WIRER Carlton rich MD [facility] CPT-67734 Level 3 Est. Patient 10:45:55 BODY WIRER Hugo Restrepo MD [facility] CPT-63119 Level 3 Est. Patient 14:12:49 CDT Griffin lincoln [facility] CPT-82523 Level 3 Est. Patient 17:37:24 CDT Carlton rich MD [facility] CPT-74461 Level 3 Est. Patient 16:51:54 CDT Carlton rich MD [facility] CPT-90702 Level 3 Est. Patient 12:18:11 CDT Hugo Restrepo MD [facility] CPT-63328 Level 3 Est. Patient 11:30:25 CDT Marcy crisostomo MD PhD [facility] CPT-47228 Level 3 Est. Patient 12:00:47 BODY WIRER Carlton rich MD [facility] CPT-57572 Level 3 Est. Patient 16:31:06 BODY WIRER Carlton rich MD [facility] CPT-79645 Level 3 Est. Patient 16:23:24 BODY WIRER Ridge tam [facility] CPT-17561 Level 3 Est. Patient 12:34:12 CDT Carlton rich MD [facility] CPT-49531 Level 2 Est. Patient 15:43:33 CDT Robi armstrong MD [facility] CPT-75060 Level 4 Est. Patient 14:04:44 CDT Carlton rich MD [facility] CPT-45088 Level 3 Est. Patient 05:47:59 CDT Ridge tam [facility] CPT-91569 Level 3 Est. Patient 13:12:53 BODY WIRER Carlton rich MD [facility] CPT-78408 Level 3 Est. Patient 14:26:53 CDT Hugo Restrepo MD [facility] Procedures Code Procedure Name Date Entry Date Standard Desc ription CPT-000 Give Appropriate Flu Vaccine 14:14:31 CDT 2 CPT-J1040 Depo Medrol 80 mg (Methyl Prednisolone A cetate) 10:42:44 CDT CPT-J1100 Decadron 8mg (Dexamethasone) 10:42:44 CDT 2 CPT-J0696 Rocephin 1gm Inj Solr 14:32:13 CDT CPT-J1020 Depo Medrol 60 mg (Methyl Prednisolone A cetate) 14:32:13 CDT CPT-J1100 Decadron 6mg (Dexamethasone) 14:32:13 CDT 2 CPT-50995 Hip bilat min 2V w AP pelvis 13:16:20 CDT 2 CPT-00768 Pelvis only 13:07:33 CDT CPT-70931 Spec Collection and Handling Fee 11:25:12 C DT CPT-10731 Fluzone Quadrivalent Intramuscular Suspe nsion 0.5 ML 14:31:55 CDT CPT-84669 Abx/Therapy Injection 13:28:47 BODY WIRER CPT-J2930 Solu Medrol 125 mg (Methyl Prednisolone Sodium Succinate) 12:00:47 BODY WIRER CPT-29388 Venipuncture Draw Fee 11:33:31 CDT CPT-23847 EKG Trac and Interp 11:21:09 CDT CPT-66623 Chest 2V Frontal and Lat 11:21:09 CDT 12/15 CPT-99136 Venipuncture Draw Fee 08:02:34 CDT CPT-97495 Chest 2V Frontal and Lat 05:47:59 CDT 06/05
--- OUTSIDE RECORDS SUMMARY | 2019-10-08 09:20 | XMS REPORT | Clinical Summary ---
Author Author Caitlin, Juliana Martinez Organization [employer] [facility] [place] Address Unknown Phone Unavailable Allergies, Adverse Reactions, [...] and unspecified angina pectoris URI 465.9 Inactive iRdge Bess DO Ac [place] upper respiratory infections of unspecified site Body [...] Hugo Restrepo MD SINUSITIS, ACUTE ICD-461.9 Inactive uHgo dominguez MD Pelvic pain, acute ICD-789.09 Inactive [...] po q12hr PRN Cough HYDROCOD POLST-CHLORPHEN POLST 30624508892 Active David Marianne MASTER AUTOMOTIVE GLASS TECHNICIAN Active AUGMENTIN 875-125 MG ORAL TABLET 1 po BID x 10 days 18/04/16 AMOXICILLIN-POT CLAVULANATE 16506617899 Active David Marianne MASTER AUTOMOTIVE GLASS TECHNICIAN Active PREDNISONE 50 MG ORAL TABLET Take 50 mg dialy for 6 day s 7 PREDNISONE 36787486400 Active David Marianne MASTER AUTOMOTIVE GLASS TECHNICIAN Active TUSSIONEX PENNKINETIC ER 10-8 MG/5ML ORAL SUSPENSION E XTENDED RELEASE 5ml po q12hr PRN Cough HYDROCOD POLST-CHLORPHEN POLST 5 7834089267 No Longer Active Cherelle Torres RN Active PREDNISONE 20 MG ORAL TABLET two tabs by mouth today, then one tab by mouth days two and three and four PREDNISONE 17133172477 No Lo nger Active Cherelle Torres RN Active AZITHROMYCIN 250 MG ORAL TABLET 2 po qd x 1 day, then 1 po q d x 4 days AZITHROMYCIN 78838338472 No Longer Active Ridge Bess DO Active PREDNISONE 20 MG ORAL TABLET 2 po qd x 5 days P REDNISONE 95809110391 No Longer Active Perez Mora MD Active PROAIR HFA 108 (90 BASE) MCG/ACT INHALATION AEROSOL SO LUTION 2 puffs four times a day as needed ALBUTEROL SULFATE 52015532304 No Long er Active Becky FUENTES Active ASPIRIN 81 MG ORAL TABLET 1 po qd ASPIRIN 19717126683 Active Carlton Hu MD Active PREDNISONE 20 MG ORAL TABLET 1 tab twice daily for 3 d ay, then one daily for three days PREDNISONE 11238914875 No Longer Active Carlton Hu MD Active AUGMENTIN 875-125 MG ORAL TABLET 1 po BID x 10 days 16/03/22 AMOXICILLIN-POT CLAVULANATE 48874112179 No Longer Active Elise Garcia APRN Active TERBINAFINE HCL 250 MG ORAL TABLET 1 qDay for nail fungus 7 TERBINAFINE HCL 73978874205 No Longer Active Carlton Hu MD A ctive AMOXICILLIN 500 MG ORAL CAPSULE 1 cap by mouth three times a day AMOXICILLIN 13622326983 No Longer Active Carlton Hu MD Active ELMIRON 100 MG ORAL CAPSULE 2 tablets in the am and 1 tablet at hs PENTOSAN POLYSULFATE SODIUM 36157821386 No Longer Active Robert Hu MD Active MUCINEX D 60-600 MG ORAL TABLET EXTENDED RELEASE 12 HOUR 1 t ab po q am PSEUDOEPHEDRINE-GUAIFENESIN 90119062290 No Longer Act nael Carlton Hu MD Active MUCINEX DM MAXIMUM STRENGTH 60-1200 MG ORAL TABLET EXT ENDED RELEASE 12 HOUR 1 tab po q am DEXTROMETHORPHAN-GUAIFENESIN 34655396998 No Longer Active Carlton Hu MD Active TUSSIONEX PENNKINETIC ER 10-8 MG/5ML ORAL SUSPENSION E XTENDED RELEASE 5ml po q12hr PRN Cough HYDROCOD POLST-CHLORPHEN POLST 5 1012942975 No Longer Active Carlton Hu MD Active POTASSIUM CHLORIDE ER 20 MEQ ORAL TABLET EXTENDED RELE ASE Take 1 by mouth 4 times daily for 7 days POTASSIUM CHLORIDE 64281679875 No Longer Active Carlton Hu MD Active ZITHROMAX 250 MG ORAL TABLET 2 po today, then 1 po q days 2-5 20 14/09/04 AZITHROMYCIN 71936324063 No Longer Active Elise Garcia APRN Active TUSSIONEX PENNKINETIC ER 10-8 MG/5ML ORAL SUSPENSION E XTENDED RELEASE 5 ml twice a day as needed for cough HYDROCOD POLST-CHLORPH EN POLST 99451024972 No Longer Active Elise Garcia APRN Active MONTELUKAST SODIUM 10 MG ORAL TABLET 1 po daily for Allergy MONTELUKAST SODIUM 13649629695 Active Carlton Hu MD Ac tive TUSSIONEX PENNKINETIC ER 10-8 MG/5ML ORAL SUSPENSION E XTENDED RELEASE 5ml po q12hr PRN Cough HYDROCOD POLST-CHLORPHEN POLST 5 6667958221 No Longer Active Hugo Restrepo MD Active GABAPENTIN 100 MG ORAL CAPSULE 1 po BID for fibromyalgia GABAPENTIN 16204053908 Active Carlton Hu MD Active LYRICA 100 MG ORAL CAPSULE Take 1 tab po BID for fibromyalgia 20 11/08/21 PREGABALIN 72487427461 No Longer Active Elise Garcia APRN A ctive PREDNISONE 20 MG ORAL TABLET 2 tabs daily for 3 days, 1 tab daily for 3 days, 1/2 tab daily for 2 days PREDNISONE 47369588929 No Longer Active Diya De Guzman APRN Active TUSSIONEX PENNKINETIC ER 10-8 MG/5ML ORAL SUSPENSION E XTENDED RELEASE 5 mL PO q 12 hrs PRN cough HYDROCOD POLST-CHLORPHEN POLST 897689 44721 No Longer Active Jillina Frazell BILL Active FLUTICASONE PROPIONATE 50 MCG/ACT NASAL SUSPENSION 2 s prays each nostril daily until bottle is empty FLUTICASONE PROPIONATE 143063418 99 No Longer Active Jillina Frakerriel MASTER AUTOMOTIVE GLASS TECHNICIAN Active ASMANEX 60 METERED DOSES 220 MCG/INH INHALATION AEROSO L POWDER BREATH ACTIVATED 1 puff bid with rinse after MOMETASONE FUROATE 0818830 4102 No Longer Active Diya De Guzman APRN Active ZITHROMAX Z-REYNA 250 MG ORAL TABLET 2 today, then 1 daily for 4 d ays AZITHROMYCIN 15635800712 No Longer Active Elise Garcia APRN Active TUSSIONEX PENNKINETIC ER 10-8 MG/5ML ORAL SUSPENSION E XTENDED RELEASE 5ml po q12hr PRN Cough HYDROCOD POLST-CHLORPHEN POLST 5 6728905578 No Longer Active Elise Garcia APRN Active PREDNISONE 20 MG ORAL TABLET 2 tabs daily for 3 days, 1 tab daily for 3 days, 1/2 tab daily for 2 days PREDNISONE 15668237073 No Longer Active Diya De Guzman APRN Active AMOXICILLIN 500 MG ORAL CAPSULE 2 po BID x 10 days 201 09/29/08 AMOXICILLIN 19998421847 No Longer Active Diya De Guzman APRN Act nael SINGULAIR 10 MG ORAL TABLET 1 po qday for allergies 20 14/01/12 MONTELUKAST SODIUM 73329733493 No Longer Active Carlton Hu MD Active LEVAQUIN 500 MG ORAL TABLET 1 tablet by mouth daily 20 13/09/24 LEVOFLOXACIN 23865290146 No Longer Active Carlton Hu MD Acti ve FLUTICASONE PROPIONATE 50 MCG/ACT NASAL SUSPENSION 2 s prays each nostril daily for 2 weeks, then 1 spray each nostril daily. FLUTICASONE PROPIONATE 98290513814 Active ALFREDO Holly Active ZITHROMAX 250 MG ORAL TABLET 2 po today, then 1 po q days 2-5 20 13/08/10 AZITHROMYCIN 69694294925 No Longer Active Elise Garcia APRN Active XANAX 0.5 MG ORAL TABLET one tablet by mouth daily prn anxiety 2015 ALPRAZOLAM 57746045031 Active ALFREDO Holly Active CYMBALTA 30 MG ORAL CAPSULE DELAYED RELEASE PARTICLES 1 cap by mouth daily for depression DULOXETINE HCL 20298724231 Active ALFREDO Holly Active CEFDINIR 300 MG ORAL CAPSULE 1 po BID x 10 days CEFDINIR 41736557325 No Longer Active Carlton Hu MD Active ZOCOR 40 MG ORAL TABLET 1 tab by mouth daily SI MVASTATIN 51563236900 No Longer Active Carlton Hu MD Active CYCLOBENZAPRINE HCL 10 MG ORAL TABLET 1 tablet by mouth BID prn had pain CYCLOBENZAPRINE HCL 42652085730 No Longer Active Jayden Hu MD Active LEVOFLOXACIN 500 MG ORAL TABLET 1 tab PO daily x 10 days LEVOFLOXACIN 73613728418 No Longer Active Carlton Hu MD Acti ve PREDNISONE 20 MG ORAL TABLET 3 tab PO qd x 2d, 2 tab P O qd x 2d, 1 tab PO qd x 2d, 1/2 tab PO qd x 2d PREDNISONE 60157004705 No Lo nger Active Carlton Hu MD Active FLUTICASONE PROPIONATE 50 MCG/ACT NASAL SUSPENSION 1 t o 2 sprays each nostril daily FLUTICASONE PROPIONATE 89786888174 No Longer Ac tive Blaine HRENANDEZ Active CHERATUSSIN AC 100-10 MG/5ML ORAL SYRUP 1 tsp by mouth every 4 hours as needed for cough GUAIFENESIN-CODEINE 91879895202 No Longe r Active Blaine HERNANDEZ Active PROMETHAZINE-CODEINE 6.25-10 MG/5ML ORAL SYRUP 1 tsp b y mouth every 6 hours if needed for cough PROMETHAZINE-CODEINE 65245771089 No Longer Active Blaine HERNANDEZ Active CHERATUSSIN AC 100-10 MG/5ML ORAL SYRUP 1 tsp by mouth every 4 hours as needed for cough GUAIFENESIN-CODEINE 75732424488 No Longe r Active Blaine HERNANDEZ Active ZITHROMAX Z-REYNA 250 MG ORAL TABLET 2 today, then 1 daily for 4 d ays AZITHROMYCIN 94045150664 No Longer Active Columba Raida Act nael ZITHROMAX 250 MG ORAL TABLET 2 po today, then 1 po q days 2-5 20 14/03/21 AZITHROMYCIN 48457061950 No Longer Active Carlton Hu MD Active ZITHROMAX Z-REYNA 250 MG ORAL TABLET 2 today, then 1 daily for 4 d ays AZITHROMYCIN 99334272685 No Longer Active Columba Raida Act nael AUGMENTIN 875-125 MG ORAL TABLET 1 po BID x 10 days 13/01/20 AMOXICILLIN-POT CLAVULANATE 79235495888 No Longer Active Diya De Guzman MASTER AUTOMOTIVE GLASS TECHNICIAN Active ZITHROMAX 250 MG ORAL TABLET 2 po today, then 1 po q days 2-5 20 12/08/14 AZITHROMYCIN 53177462332 No Longer Active Carlton Hu MD Active TRAMADOL HCL 50 MG ORAL TABLET 1 po tid with ES Tylenol TRAMADOL HCL 97939503262 Active Adrienne Galvez NUCLEAR OFFICER Active PREMARIN 0.625 MG ORAL TABLET TAKE 1 TAB BY MOUTH DAILY ESTROGENS CONJUGATED 79663240461 No Longer Active Ridge Bess DO A ctive CYMBALTA 30 MG ORAL CAPSULE DELAYED RELEASE PARTICLES 1 cap by mouth daily DULOXETINE HCL 56680985869 No Longer Active Ridge Ya ee DO Active AMOXICILLIN 500 MG ORAL CAPSULE 1 tab by mouth 3 times daily x 10 days AMOXICILLIN 54876154800 No Longer Active Carlton bustamante MD Active AMOXICILLIN 500 MG ORAL CAPSULE 1 tab by mouth 3 times daily x 10 days AMOXICILLIN 22100248462 No Longer Active Carlton bustamante MD Active PROMETHAZINE-CODEINE 6.25-10 MG/5ML ORAL SYRUP 1 tsp b y mouth every 8 hours prn cough PROMETHAZINE-CODEINE 29975261453 No Longer Acti ve Carlton Hu MD Active MEDROL 4 MG ORAL TABLET THERAPY PACK 6 pills x 1 day, then 5 pills x 1 day then 4 pills x 1 day, then 3 pills x 1 day, then 2 pills x 1 day, then 1 pill x 1 day, then stop METHYLPREDNISOLONE 19218470799 No Long er Active Perez Mora MD Active AZITHROMYCIN 250 MG ORAL TABLET 2 po qd x 1 day, then 1 po q d x 4 days AZITHROMYCIN 76016752796 No Longer Active Perez Ambriz MD Active SYMBICORT 160-4.5 MCG/ACT INHALATION AEROSOL 2 puffs bid wit h rinse after BUDESONIDE-FORMOTEROL FUMARATE 15408595091 N o Longer Active Perez Mora MD Active LYRICA 75 MG ORAL CAPSULE TAKE 1 CAPSULE BY MOUTH TWICE DAILY PREGABALIN 94566755087 No Longer Active Carlton Hu MD Acti ve TOPAMAX 25 MG ORAL TABLET 1 qHS x 1 week, then 1 BID x 1 week, then 1 qAM and 2 qHS x 1 week, then 2 BID (migraine prevention) T OPIRAMATE 51314257579 No Longer Active Jerica FUENTES Active TOPAMAX 50 MG ORAL TABLET take 1 tab po BID for migraines. 07/02 TOPIRAMATE 58186477885 No Longer Active Jerica FUENTES Active TOPAMAX 100 MG ORAL TABLET Take 1 tablet po bid TO PIRAMATE 95356390696 Active ALFREDO Holly Active TRIAMCINOLONE ACETONIDE 0.1 % EXTERNAL CREAM apply three roger es daily prn rash TRIAMCINOLONE ACETONIDE 92513856613 No Longer Active Carlton Hu MD Active PAXIL 40 MG ORAL TABLET take 1 tab po qday for depression 0 PAROXETINE HCL 33720217357 Active ALFREDO Holly Active CHERATUSSIN AC 100-10 MG/5ML ORAL SYRUP 5ml po q6hr PRN Cough 20 13/04/14 GUAIFENESIN-CODEINE 17066755034 No Longer Active Carlton Hu MD Active MEDROL 4 MG ORAL TABLET THERAPY PACK 6 tabs on day 1, 5 tabs on day 2, 4 tabs on day 3, 3 tabs on day 4, 2 tabs on day 5, 1 tab on day 6 2013 METHYLPREDNISOLONE 26002416296 No Longer Active Perez Mora MD Active AZITHROMYCIN 250 MG ORAL TABLET 2 po qd x 1 day, then 1 po q d x 4 days AZITHROMYCIN 81396090296 No Longer Active Perez Ambriz MD Active PROPRANOLOL HCL 60 MG ORAL TABLET 1 PO Q D PROPRANOLOL HCL 09902752742 No Longer Active Perez Mora MD Activ e CHERATUSSIN AC 100-10 MG/5ML ORAL SYRUP take one tsp po Q 6h ours prn cough GUAIFENESIN-CODEINE 74247735749 No Longer Active Zia Mora MD Active AUGMENTIN 875-125 MG ORAL TABLET 1 tab by mouth twice daily with food AMOXICILLIN-POT CLAVULANATE 89040475216 No Longer Act nael Perez Mora MD Active CHERATUSSIN AC 100-10 MG/5ML ORAL SYRUP 1 tsp by mouth every 4 hours as needed for cough GUAIFENESIN-CODEINE 71511935212 No Longe r Active Hugo Restrepo MD Active ACETAMINOPHEN-CODEINE #3 300-30 MG ORAL TABLET 1 PO Q 4-6 HRS DE N PAIN ACETAMINOPHEN-CODEINE 54386498449 No Longer Active Hugo Restrepo MD Active LEVAQUIN 500 MG ORAL TABLET take one po QD LEVO FLOXACIN 17433574998 No Longer Active Griffin HERNANDEZ Active PREDNISONE 20 MG ORAL TABLET Take 3 tabs daily for 3 d ays, 2 tabs daily for 3 days, 1 tab daily for 3 days, 1/2 tab daily for 3 days 11/07 PREDNISONE 82748334012 No Longer Active Carlton Hu MD Acti ve AVELOX 400 MG ORAL TABLET 1 tab by mouth daily MOXIFLOXACIN HCL 34996040534 No Longer Active Carlton Hu MD Active CHERATUSSIN AC 100-10 MG/5ML ORAL SYRUP 1 tsp by mouth every 4 hours as needed for cough GUAIFENESIN-CODEINE 21788745923 No Longe r Active Hugo Restrepo MD Active AVELOX 400 MG ORAL TABLET 1 tab by mouth daily MOXIFLOXACIN HCL 00017143325 No Longer Active Marcy De La Rosa MD PhD Active TERBINAFINE HCL 250 MG ORAL TABLET 1 qDay T ERBINAFINE HCL 16761762543 No Longer Active Marcy De La Rosa MD PhD Active CHERATUSSIN AC 100-10 MG/5ML ORAL SYRUP 1 tsp by mouth every 4 hours as needed for cough GUAIFENESIN-CODEINE 79481116844 No Longe r Active Marcy De La Rosa MD PhD Active AVELOX 400 MG ORAL TABLET 1 tab by mouth daily MOXIFLOXACIN HCL 89292015398 No Longer Active Marcy De La Rosa MD PhD Active HYDROCODONE-ACETAMINOPHEN 5-325 MG ORAL TABLET 1 po q 6hr PRN co ugh HYDROCODONE-ACETAMINOPHEN 73985704443 No Longer Active Marcy De La Rosa MD PhD Active PREDNISONE 20 MG ORAL TABLET 2 tabs daily for 3 days, 1 tab daily for 3 days, 1/2 tab daily for 2 days PREDNISONE 46615008463 No Longer Active Carlton Hu MD Active CEFDINIR 300 MG ORAL CAPSULE by mouth twice a day 2011 CEFDINIR 17683483967 No Longer Active Carlton Hu MD Acti ve HYDROCHLOROTHIAZIDE 25 MG ORAL TABLET 1 TAB PO DAILY HYDROCHLOROTHIAZIDE 23900366495 Active Adrienne Galvez NUCLEAR OFFICER Active ACETAMINOPHEN-CODEINE #3 300-30 MG ORAL TABLET 1 tablet po q 4-6 hrs prn pain ACETAMINOPHEN-CODEINE 67751399657 No Longer Active Ridge Bess DO Active ZITHROMAX 250 MG ORAL TABLET 2 po today, then 1 po q days 2-5 20 03/07/07 AZITHROMYCIN 24633968519 No Longer Active Carlton Hu MD Active CHERATUSSIN AC 100-10 MG/5ML ORAL SYRUP take 1 tsp po q4-6 h ours prn cough GUAIFENESIN-CODEINE 75380568111 No Longer Active Jayden Hu MD Active ACETAMINOPHEN-CODEINE #3 300-30 MG ORAL TABLET 1 PO Q 4-6 HR PRN PAIN ACETAMINOPHEN-CODEINE 90735569541 No Longer Active Da raimundo Hu MD Active LORTAB 7.5-500 MG/15ML ORAL ELIXIR 7.5 ml po q 4 hour prn cough HYDROCODONE-ACETAMINOPHEN 39905770981 No Longer Active Carlton Hu MD Active PREDNISONE 20 MG ORAL TABLET 1 po bid 3 days, then 1 po q day 3 days PREDNISONE 24888468645 No Longer Active Carlton Hu MD Active CEFDINIR 300 MG ORAL CAPSULE by mouth twice a day 2011 CEFDINIR 09298431713 No Longer Active Carlton Hu MD Acti ve CEFDINIR 300 MG ORAL CAPSULE by mouth twice a day 2010 CEFDINIR 19299001390 No Longer Active Carlton Hu MD Acti ve CEFDINIR 300 MG ORAL CAPSULE by mouth twice a day 2010 CEFDINIR 89567543387 No Longer Active Carlton Hu MD Acti ve TESSALON PERLES 100 MG ORAL CAPSULE 1 tablet by mouth 3 times daily as needed for cough BENZONATATE 01674333449 No Longer Active Carlton Hu MD Active CEFDINIR 300 MG ORAL CAPSULE by mouth twice a day 2010 CEFDINIR 95076470738 No Longer Active Carlton Hu MD Acti ve ZITHROMAX Z-REYNA 250 MG ORAL TABLET 2 today, then 1 daily for 4 d ays AZITHROMYCIN 19406105472 No Longer Active Hugo Restrepo MD Active TESSALON PERLES 100 MG ORAL CAPSULE 1 tablet by mouth 3 times daily as needed for cough TESSALON PERLES 100 MG ORAL CAPSULE 22821 7 BENZONATATE Inactive PREDNISONE 20 MG ORAL TABLET 1 po bid 3 days, then 1 po q day 3 days PREDNISONE 20 MG ORAL TABLET 673916 PREDNISONE [place] ctive LORTAB 7.5-500 MG/15ML ORAL ELIXIR [...] cough CHERATUSSIN AC 100-10 MG/5ML ORAL SYRUP 732897 GUAIFENESIN-CODEINE Inactive ACETAMINOPHEN-CODEINE #3 300-30 MG ORAL TABLET 1 tablet po q 4-6 hrs prn pain ACETAMINOPHEN-CODEINE #3 300-30 MG ORAL TABLET ACETAMINOPHEN-CODEINE Inactive HYDROCODONE-ACETAMINOPHEN 5-325 MG ORAL TABLET 1 po q 6hr PRN co ugh HYDROCODONE-ACETAMINOPHEN 5-325 MG ORAL TABLET 308513 HYDROCODONE-ACETAMINOPHEN Inactive AVELOX 400 MG ORAL TABLET 1 tab by mouth daily AVELOX 400 MG ORAL TABLET 474363 MOXIFLOXACIN HCL Inactive CHERATUSSIN AC 100-10 MG/5ML ORAL SYRUP 1 tsp by mouth every 4 hours as needed for cough CHERATUSSIN AC 100-10 MG/5ML ORAL SYRUP 9 89978 GUAIFENESIN-CODEINE Inactive TERBINAFINE HCL 250 MG ORAL TABLET 1 qDay 07/08 TERBINAFINE HCL 250 MG ORAL TABLET 492232 TERBINAFINE HCL Inactive CHERATUSSIN AC 100-10 MG/5ML ORAL SYRUP 1 tsp by mouth every 4 hours as needed for cough CHERATUSSIN AC 100-10 MG/5ML ORAL SYRUP 9 23102 GUAIFENESIN-CODEINE Inactive ACETAMINOPHEN-CODEINE #3 300-30 MG ORAL TABLET 1 PO Q 4-6 HRS DE N PAIN ACETAMINOPHEN-CODEINE #3 300-30 MG ORAL TABLET ACETAMINOPHEN-CODEINE Inactive CHERATUSSIN AC 100-10 MG/5ML ORAL SYRUP 1 tsp by mouth every 4 hours as needed for cough CHERATUSSIN AC 100-10 MG/5ML ORAL SYRUP 9 71042 GUAIFENESIN-CODEINE Inactive AUGMENTIN 875-125 MG ORAL TABLET 1 tab by mouth twice daily with food AUGMENTIN 875-125 MG ORAL TABLET 332049 AMOXICIL MADELINE-POT CLAVULANATE Inactive CHERATUSSIN AC 100-10 MG/5ML ORAL SYRUP take one tsp po Q 6h ours prn cough CHERATUSSIN AC 100-10 MG/5ML ORAL SYRUP 202217 GUAIFENESIN-CODEINE Inactive PROPRANOLOL HCL 60 MG ORAL TABLET 1 PO Q D PROPRANOLOL HCL 60 MG ORAL TABLET 689366 PROPRANOLOL HCL Inactive TOPAMAX 50 MG ORAL TABLET take 1 tab po BID for migraines. 07/02 TOPAMAX 50 MG ORAL TABLET 144070 TOPIRAMATE Inacti ve TOPAMAX 25 MG ORAL TABLET 1 qHS x 1 week, then 1 BID x 1 week, then 1 qAM and 2 qHS x 1 week, then 2 BID (migraine prevention) TOPAMAX 25 MG ORAL TABLET 589691 TOPIRAMATE Inactive LYRICA 75 MG ORAL CAPSULE TAKE 1 CAPSULE BY MOUTH TWICE DAILY LYRICA 75 MG ORAL CAPSULE PREGABALIN Inactive SYMBICORT 160-4.5 MCG/ACT INHALATION AEROSOL 2 puffs bid wit h rinse after SYMBICORT 160-4.5 MCG/ACT INHALATION AEROSOL BUDESONIDE- FORMOTEROL FUMARATE Inactive PROMETHAZINE-CODEINE 6.25-10 MG/5ML ORAL SYRUP 1 tsp b y mouth every 8 hours prn cough PROMETHAZINE-CODEINE 6.25-10 MG/ 5ML ORAL SYRUP 939771 PROMETHAZINE-CODEINE Inactive CYMBALTA 30 MG ORAL CAPSULE DELAYED RELEASE PARTICLES 1 cap by mouth daily CYMBALTA 30 MG ORAL CAPSULE DELAYED RELE ASE PARTICLES 468941 DULOXETINE HCL Inactive PREMARIN 0.625 MG ORAL TABLET TAKE 1 TAB BY MOUTH DAILY PREMARIN 0.625 MG ORAL TABLET ESTROGENS CONJUGATED Inactive CHERATUSSIN AC 100-10 MG/5ML ORAL SYRUP 1 tsp by mouth every 4 hours as needed for cough CHERATUSSIN AC 100-10 MG/5ML ORAL SYRUP 9 91934 GUAIFENESIN-CODEINE Inactive PROMETHAZINE-CODEINE 6.25-10 MG/5ML ORAL SYRUP 1 tsp b y mouth every 6 hours if needed for cough PROMETHAZINE-CODEINE 6.25-10 MG/5ML ORAL SYRUP 981460 PROMETHAZINE-CODEINE Inactive CHERATUSSIN AC 100-10 MG/5ML ORAL SYRUP 1 tsp by mouth every 4 hours as needed for cough CHERATUSSIN AC 100-10 MG/5ML ORAL SYRUP 9 77592 GUAIFENESIN-CODEINE Inactive FLUTICASONE PROPIONATE 50 MCG/ACT NASAL SUSPENSION 1 t o 2 sprays each nostril daily FLUTICASONE PROPIONATE 50 MCG/AC T NASAL SUSPENSION 8329547 FLUTICASONE PROPIONATE Inactive PREDNISONE 20 MG ORAL TABLET 3 tab PO qd x 2d, 2 tab P O qd x 2d, 1 tab PO qd x 2d, 1/2 tab PO qd x 2d PREDNISONE 20 MG ORAL TAB LET 482004 PREDNISONE Inactive LEVOFLOXACIN 500 MG ORAL TABLET 1 tab PO daily x 10 days LEVOFLOXACIN 500 MG ORAL TABLET 884501 LEVOFLOXACIN Inactive CYCLOBENZAPRINE HCL 10 MG ORAL TABLET 1 tablet by mouth BID prn had pain CYCLOBENZAPRINE HCL 10 MG ORAL TABLET 322019 CYCLOBENZAPRINE HCL Inactive ZOCOR 40 MG ORAL TABLET 1 tab by mouth daily 4 ZOCOR 40 MG ORAL TABLET 449902 SIMVASTATIN Inactive TUSSIONEX PENNKINETIC ER 10-8 MG/5ML [...] FLUTICASONE PROPIO EFE 50 MCG/ACT NASAL SUSPENSION 2226374 FLUTICASONE PROPIONATE Inactive TUSSIONEX PENNKINETIC ER 10-8 [...] three days PREDNISONE 20 MG ORAL TABLET 815201 PREDNIS ONE Inactive PROAIR HFA 108 (90 BASE) MCG/ACT INHALATION AEROSOL SO LUTION 2 puffs four times a day as needed PROAIR HFA 108 (90 B ASE) MCG/ACT INHALATION AEROSOL SOLUTION ALBUTEROL SULFATE Inactive PREDNISONE 20 MG ORAL TABLET two tabs by mouth today, then one tab by mouth days two and three and four PREDNISONE 20 MG ORAL TAB LET 998649 PREDNISONE Inactive TUSSIONEX PENNKINETIC ER 10-8 MG/5ML ORAL SUSPENSION E XTENDED RELEASE 5ml po q12hr PRN Cough TUSSIONEX PENNKINETI C ER 10-8 MG/5ML ORAL SUSPENSION EXTENDED RELEASE HYDROCOD POLST-CHLORPHEN POLST I nactive ZITHROMAX Z-REYNA 250 MG ORAL TABLET 2 today, then 1 daily for 4 d ays ZITHROMAX Z-REYNA 250 MG ORAL TABLET 644861 AZITHROMYCIN Inactive CEFDINIR 300 MG ORAL CAPSULE by mouth twice a day 2010 CEFDINIR 300 MG ORAL CAPSULE 20020704 CEFDINIR Inactive CEFDINIR 300 MG ORAL CAPSULE by mouth twice a day 2010 CEFDINIR 300 MG ORAL CAPSULE 20020704 CEFDINIR Inactive CEFDINIR 300 MG ORAL CAPSULE by mouth twice a day 2010 CEFDINIR 300 MG ORAL CAPSULE 845834 CEFDINIR Inactive CEFDINIR 300 MG ORAL CAPSULE by mouth twice a day 2011 CEFDINIR 300 MG ORAL CAPSULE 767561 CEFDINIR Inactive ZITHROMAX 250 MG ORAL TABLET 2 po today, then 1 po q days 2-5 03/07/07 ZITHROMAX 250 MG ORAL TABLET 573365 AZITHROMYCIN [place] ctive CEFDINIR 300 MG ORAL CAPSULE by mouth twice a day 2011 CEFDINIR 300 MG ORAL CAPSULE 20020704 CEFDINIR Inactive PREDNISONE 20 MG ORAL TABLET 2 tabs daily for 3 days, 1 tab daily for 3 days, 1/2 tab daily for 2 days PREDNISONE 20 MG ORAL T ABLET 814196 PREDNISONE Inactive AVELOX 400 MG ORAL TABLET 1 tab by mouth daily AVELOX 400 MG ORAL TABLET 840060 MOXIFLOXACIN HCL Inactive AVELOX 400 MG ORAL TABLET 1 tab by mouth daily AVELOX 400 MG ORAL TABLET 955039 MOXIFLOXACIN HCL Inactive PREDNISONE 20 MG ORAL TABLET Take 3 tabs daily for 3 d ays, 2 tabs daily for 3 days, 1 tab daily for 3 days, 1/2 tab daily for 3 days 11/07 PREDNISONE 20 MG ORAL TABLET 170107 PREDNISONE Inactive LEVAQUIN 500 MG ORAL TABLET take one po QD LEVAQUIN 500 MG ORAL TABLET 354341 LEVOFLOXACIN Inactive AZITHROMYCIN 250 MG ORAL TABLET 2 po qd x 1 day, then 1 po q d x 4 days AZITHROMYCIN 250 MG ORAL TABLET 161004 AZITHROMY GIOVANNI Inactive MEDROL 4 MG ORAL TABLET THERAPY PACK 6 tabs on day 1, 5 tabs on day 2, 4 tabs on day 3, 3 tabs on day 4, 2 tabs on day 5, 1 tab on day 6 2013 MEDROL 4 MG ORAL TABLET THERAPY PACK 115006 METHYLPREDNISOLONE [place] ctive CHERATUSSIN AC 100-10 MG/5ML ORAL SYRUP 5ml po q6hr PRN Cough 20 13/04/14 CHERATUSSIN AC 100-10 MG/5ML ORAL SYRUP 722889 GUAIFENE SIN-CODEINE Inactive TRIAMCINOLONE ACETONIDE 0.1 % EXTERNAL CREAM apply three roger es daily prn rash TRIAMCINOLONE ACETONIDE 0.1 % EXTERNAL CREAM 101 4314 TRIAMCINOLONE ACETONIDE Inactive AZITHROMYCIN 250 MG ORAL TABLET 2 po qd x 1 day, then 1 po q d x 4 days AZITHROMYCIN 250 MG ORAL TABLET 375320 AZITHROMY GIOVANNI Inactive MEDROL 4 MG ORAL TABLET THERAPY PACK 6 pills x 1 day, then 5 pills x 1 day then 4 pills x 1 day, then 3 pills x 1 day, then 2 pills x 1 day, then 1 pill x 1 day, then stop MEDROL 4 MG ORAL TABLET THERAPY PACK 493287 METHYLPREDNISOLONE Inactive AMOXICILLIN 500 MG ORAL CAPSULE 1 tab by mouth 3 times daily x 10 days AMOXICILLIN 500 MG ORAL CAPSULE 113276 AMOXICILL IN Inactive AMOXICILLIN 500 MG ORAL CAPSULE 1 tab by mouth 3 times daily x 10 days AMOXICILLIN 500 MG ORAL CAPSULE 159802 AMOXICILL IN Inactive ZITHROMAX 250 MG ORAL TABLET 2 po today, then 1 po q days 2-5 20 12/08/14 ZITHROMAX 250 MG ORAL TABLET [id number] AZITHROMYCIN [place] ctive AUGMENTIN 875-125 MG ORAL TABLET 1 po BID x 10 days 13/01/20 AUGMENTIN 875-125 MG ORAL TABLET 004276 AMOXICILLIN-POT CLAVULANATE Inactive ZITHROMAX Z-REYNA 250 MG ORAL TABLET 2 today, then 1 daily for 4 d ays ZITHROMAX Z-REYNA 250 MG ORAL TABLET [id number] AZITHROMYCIN Inactive ZITHROMAX 250 MG ORAL TABLET 2 po today, then 1 po q days 2-5 20 14/03/21 ZITHROMAX 250 MG ORAL TABLET 931640 AZITHROMYCIN [place] [facility] ZITHROMAX Z-REYNA 250 MG ORAL TABLET 2 today, then 1 daily for 4 d ays ZITHROMAX Z-REYNA 250 MG ORAL TABLET 901155 AZITHROMYCIN Inactive CEFDINIR 300 MG ORAL CAPSULE 1 po BID x 10 days 06/21 CEFDINIR 300 MG ORAL CAPSULE [id number] CEFDINIR Inactive ZITHROMAX 250 MG ORAL TABLET 2 po today, then 1 po q days 2-5 20 13/08/10 ZITHROMAX 250 MG ORAL TABLET 238199 AZITHROMYCIN [place] [facility] LEVAQUIN 500 MG ORAL TABLET 1 tablet by mouth daily 13/09/24 LEVAQUIN 500 MG ORAL TABLET [id number] LEVOFLOXACIN Inactive SINGULAIR 10 MG ORAL TABLET 1 po qday for allergies 20 14/01/12 SINGULAIR 10 MG ORAL TABLET 449017 MONTELUKAST SODIUM Inactive AMOXICILLIN 500 MG ORAL CAPSULE 2 po BID x 10 days 201 09/29/08 AMOXICILLIN 500 MG ORAL CAPSULE 081625 AMOXICILLIN Inactive PREDNISONE 20 MG ORAL TABLET 2 tabs daily for 3 days, 1 tab daily for 3 days, 1/2 tab daily for 2 days PREDNISONE 20 MG ORAL T ABLET 164187 PREDNISONE Inactive ZITHROMAX Z-REYNA 250 MG ORAL TABLET 2 today, then 1 daily for 4 d ays ZITHROMAX Z-REYNA 250 MG ORAL TABLET 376474 AZITHROMYCIN Inactive PREDNISONE 20 MG ORAL TABLET 2 tabs daily for 3 days, 1 tab daily for 3 days, 1/2 tab daily for 2 days PREDNISONE 20 MG ORAL T ABLET 237745 PREDNISONE Inactive ZITHROMAX 250 MG ORAL TABLET 2 po today, then 1 po q days 2-5 20 14/09/04 ZITHROMAX 250 MG ORAL TABLET 490782 AZITHROMYCIN Greer ctive AMOXICILLIN 500 MG ORAL CAPSULE 1 cap by mouth three times a day AMOXICILLIN 500 MG ORAL CAPSULE 047645 AMOXICILLIN Inactive TERBINAFINE HCL 250 MG ORAL TABLET 1 qDay for nail fungus 7 TERBINAFINE HCL 250 MG ORAL TABLET 549095 TERBINAFINE HCL Inact nael AUGMENTIN 875-125 MG ORAL TABLET 1 po BID x 10 days 16/03/22 AUGMENTIN 875-125 MG ORAL TABLET 697162 AMOXICILLIN-POT CLAVULANATE Inactive PREDNISONE 20 MG ORAL TABLET 2 po qd x 5 days PREDNISONE 20 MG ORAL TABLET 569415 PREDNISONE Inactive AZITHROMYCIN 250 MG ORAL TABLET 2 po qd x 1 day, then 1 po q d x 4 days AZITHROMYCIN 250 MG ORAL TABLET 058244 AZITHROMY GIOVANNI Inactive Vital Signs Date Name [...] - Chem istry sodium, serum 139 mmol/L [phone]/03/19 potassium, serum 3.6 mmol/L 3.5-5.2 chloride, serum 100 mmol/L 98-107 carbon dioxide, venous blood 30.3 mmol/L 21.0-32 .0 blood glucose 101 mg/dL 65-110 calcium, serum 9.4 mg/dL 8.5-10.1 urea nitrogen, blood 10 mg/dL 7-18 creatinine, serum 0.96 mg/dL 0.60-1.30 sodium, serum 139 mmol/L 722-763 3359/10/12 potassium, serum 3.8 mmol/L 3.5-5.2 chloride, serum 102 mmol/L 98-107 carbon dioxide, venous blood 29.4 mmol/L 21.0-32 .0 blood glucose 103 mg/dL 65-95 calcium, serum 8.8 mg/dL 8.5-10.1 urea nitrogen, blood 10 mg/dL 7-18 creatinine, serum 0.97 mg/dL 0.60-1.30 Estimated Glomerular Filtration Rate (calc) 62 (?) mL/min/1.73m2 = OR > 60 mL/min Encounters Code Encounter Date Provider Facility CPT-75267 [id number] Vst-Est Level III 11:12:16 CDT Yanet Bess DO [facility] [place]-84312 Level 3 Est. Patient 11:34:49 HVAC DESIGNER Perez Mora MD [facility] [place]-14212 Level 4 Est. Patient 09:51:32 HVAC DESIGNER Carlton rich MD [facility] [place]-97526 Level 3 Est. Patient 10:26:00 HVAC DESIGNER Elise stephenson [facility]-06141 Level 3 Est. Patient 13:35:41 HVAC DESIGNER Carlton rich MD [facility] [place]-13547 Level 3 Est. Patient 10:03:52 HVAC DESIGNER Carlton rich MD [facility] [place]-72645 Level 3 Est. Patient 12:17:50 CDT Hugo Restrepo MD [facility] [place]-92151 Level 3 Est. Patient 13:42:38 CDT Elise stephenson [facility]-61026 Level 3 Est. Patient 13:23:51 CDT Diya cobian [facility]-54490 Level 3 Est. Patient 14:22:19 HVAC DESIGNER Diya cobian [facility]-79465 Level 3 Est. Patient 10:11:46 CDT Carlton rich MD [facility] [place]-34485 Level 3 Est. Patient 17:29:43 CDT Elise Are ll MASTER [employer]OMOT[employer] TECHNICIAN [facility] CPT-49643 Level 3 Est. Patient 11:58:06 CDT Elise Are ll MASTER AUTOMOTIVE [employer]ASS TECHNICIAN [facility] CPT-91826 Level 4 Est. Patient 14:36:51 CDT Carlton rich MD [facility] CPT-25377 Level 3 Est. Patient 18:16:00 HVAC DESIGNER Blaine Freeman [facility] CPT-71269 Level 3 Est. Patient 09:45:49 HVAC DESIGNER Carlton rich MD [facility] CPT-82731 Level 3 Est. Patient 13:19:20 CDT Carlton [id number] Level 3 Est. Patient 13:06:43 CDT Ridge tam DO [facility] CPT-73583 Level 3 Est. Patient 10:03:07 CDT Perez Mora MD [facility] CPT-29177 Level 3 Est. Patient 19:50:35 HVAC DESIGNER Carlton rich MD [facility] CPT-73792 Level 4 Est. Patient 18:05:01 HVAC DESIGNER Carlton rich MD [facility] CPT-72531 Level 3 Est. Patient 10:45:55 HVAC DESIGNER Hugo Restrepo MD [facility] CPT-21692 Level 3 Est. Patient 14:12:49 CDT Griffin lincoln [facility] CPT-65441 Level 3 Est. Patient 17:37:24 CDT Carlton rich MD [facility] CPT-03533 Level 3 Est. Patient 16:51:54 CDT Carlton rich MD [facility] CPT-03151 Level 3 Est. Patient 12:18:11 CDT Hugo Restrepo MD [facility] CPT-58906 Level 3 Est. Patient 11:30:25 CDT Marcy crisostomo MD PhD [facility] CPT-36868 Level 3 Est. Patient 12:00:47 HVAC DESIGNER Carlton rich MD [facility] CPT-31723 Level 3 Est. Patient 16:31:06 HVAC DESIGNER Carlton rich MD [facility] CPT-99214 Level 3 Est. Patient 16:23:24 HVAC DESIGNER Ridge tam [facility] CPT-88172 Level 3 Est. Patient 12:34:12 CDT Carlton rich MD [facility] CPT-98006 Level 2 Est. Patient 15:43:33 CDT Robi armstrong MD [facility] CPT-67109 Level 4 Est. Patient 14:04:44 CDT Carlton rich MD [facility] CPT-76005 Level 3 Est. Patient 05:47:59 CDT Ridge tam [facility] CPT-64136 Level 3 Est. Patient 13:12:53 HVAC DESIGNER Carlton rich MD [facility] CPT-90116 Level 3 Est. Patient 14:26:53 CDT Hugo [...] CPT-J1100 Decadron 6mg (Dexamethasone) 14:32:13 CDT 2 CPT-65836 Hip bilat min 2V w AP pelvis 13:16:20 CDT 2 CPT-90133 Pelvis only 13:07:33 CDT CPT-92562 Spec Collection and Handling Fee 11:25:12 C DT CPT-47404 Fluzone Quadrivalent Intramuscular Suspe nsion 0.5 ML 14:31:55 CDT CPT-47030 Abx/Therapy Injection 13:28:47 HVAC DESIGNER CPT-J2930 Solu Medrol 125 mg (Methyl Prednisolone Sodium Succinate) 12:00:47 HVAC DESIGNER CPT-30688 Venipuncture Draw Fee 11:33:31 CDT CPT-93281 EKG Trac and Interp 11:21:09 CDT CPT-59920 Chest 2V Frontal and Lat 11:21:09 CDT 12/15 CPT-45520 Venipuncture Draw Fee 08:02:34 CDT CPT-18011 Chest 2V Frontal and Lat 05:47:59 CDT 06/05
--- OUTSIDE RECORDS SUMMARY | 2019-10-08 09:20 | XMS REPORT | Clinical Summary ---
Author Author Caitlin, Juliana Martinez Organization [facility] Address Unknown Phone Unavailable Allergies, [...] URI 465.9 Inactive Ridge Bess DO Ac nondalton upper respiratory infections of unspecified site Body [...] po q12hr PRN Cough HYDROCOD POLST-CHLORPHEN POLST 55069939514 Active David Marianne MANAGER STAR Active AUGMENTIN 875-125 MG ORAL TABLET 1 po BID x 10 days 18/04/16 AMOXICILLIN-POT CLAVULANATE 41341640142 Active David Marianne MANAGER STAR Active PREDNISONE 50 MG ORAL TABLET Take 50 mg dialy for 6 day s 7 PREDNISONE 36782791341 Active Davdi Marianne MANAGER STAR Active TUSSIONEX PENNKINETIC ER 10-8 MG/5ML ORAL SUSPENSION E XTENDED RELEASE 5ml po q12hr PRN Cough HYDROCOD POLST-CHLORPHEN POLST 5 2965016926 No Longer Active Cherelle Torres RN Active PREDNISONE 20 MG ORAL TABLET two tabs by mouth today, then one tab by mouth days two and three and four PREDNISONE 78452348935 No Lo nger Active Cherelle Torres RN Active AZITHROMYCIN 250 MG ORAL TABLET 2 po qd x 1 day, then 1 po q d x 4 days AZITHROMYCIN 43971569670 No Longer Active Ridge eBss DO Active PREDNISONE 20 MG ORAL TABLET 2 po qd x 5 days P REDNISONE 81317352993 No Longer Active Perez Mora MD Active PROAIR HFA 108 (90 BASE) MCG/ACT INHALATION AEROSOL SO LUTION 2 puffs four times a day as needed ALBUTEROL SULFATE 22381596477 No Long er Active Becky FUENTES Active ASPIRIN 81 MG ORAL TABLET 1 po qd ASPIRIN 17012294415 Active Carlton Hu MD Active PREDNISONE 20 MG ORAL TABLET 1 tab twice daily for 3 d ay, then one daily for three days PREDNISONE 93115026906 No Longer Active Carlton Hu MD Active AUGMENTIN 875-125 MG ORAL TABLET 1 po BID x 10 days 16/03/22 AMOXICILLIN-POT CLAVULANATE 88211091038 No Longer Active Elise Garcia APRN Active TERBINAFINE HCL 250 MG ORAL TABLET 1 qDay for nail fungus 7 TERBINAFINE HCL 18881968363 No Longer Active Carlton Hu MD A ctive AMOXICILLIN 500 MG ORAL CAPSULE 1 cap by mouth three times a day AMOXICILLIN 28810056702 No Longer Active Carlton Hu MD Active ELMIRON 100 MG ORAL CAPSULE 2 tablets in the am and 1 tablet at hs PENTOSAN POLYSULFATE SODIUM 63546983770 No Longer Active Robert Hu MD Active MUCINEX D 60-600 MG ORAL TABLET EXTENDED RELEASE 12 HOUR 1 t ab po q am PSEUDOEPHEDRINE-GUAIFENESIN 54148485454 No Longer Act nael Carlton Hu MD Active MUCINEX DM MAXIMUM STRENGTH 60-1200 MG ORAL TABLET EXT ENDED RELEASE 12 HOUR 1 tab po q am DEXTROMETHORPHAN-GUAIFENESIN 54508471618 No Longer Active Carlton Hu MD Active TUSSIONEX PENNKINETIC ER 10-8 MG/5ML ORAL SUSPENSION E XTENDED RELEASE 5ml po q12hr PRN Cough HYDROCOD POLST-CHLORPHEN POLST 5 8149193185 No Longer Active Carlton Hu MD Active POTASSIUM CHLORIDE ER 20 MEQ ORAL TABLET EXTENDED RELE ASE Take 1 by mouth 4 times daily for 7 days POTASSIUM CHLORIDE 78784217304 No Longer Active Carlton Hu MD Active ZITHROMAX 250 MG ORAL TABLET 2 po today, then 1 po q days 2-5 20 14/09/04 AZITHROMYCIN 51208205532 No Longer Active Elise Garcia APRN Active TUSSIONEX PENNKINETIC ER 10-8 MG/5ML ORAL SUSPENSION E XTENDED RELEASE 5 ml twice a day as needed for cough HYDROCOD POLST-CHLORPH EN POLST 68338626614 No Longer Active Elise Garcia APRN Active MONTELUKAST SODIUM 10 MG ORAL TABLET 1 po daily for Allergy MONTELUKAST SODIUM 33657359301 Active Carlton Hu MD Ac tive TUSSIONEX PENNKINETIC ER 10-8 MG/5ML ORAL SUSPENSION E XTENDED RELEASE 5ml po q12hr PRN Cough HYDROCOD POLST-CHLORPHEN POLST 5 1165781193 No Longer Active Hugo Restrepo MD Active GABAPENTIN 100 MG ORAL CAPSULE 1 po BID for fibromyalgia GABAPENTIN 90997520420 Active Carlton Hu MD Active LYRICA 100 MG ORAL CAPSULE Take 1 tab po BID for fibromyalgia 20 11/08/21 PREGABALIN 05195074476 No Longer Active Elise Garcia APRN A ctive PREDNISONE 20 MG ORAL TABLET 2 tabs daily for 3 days, 1 tab daily for 3 days, 1/2 tab daily for 2 days PREDNISONE 10390646273 No Longer Active Diya De Guzman APRN Active TUSSIONEX PENNKINETIC ER 10-8 MG/5ML ORAL SUSPENSION E XTENDED RELEASE 5 mL PO q 12 hrs PRN cough HYDROCOD POLST-CHLORPHEN POLST 550175 97988 No Longer Active Jillina Frazell BILL Active FLUTICASONE PROPIONATE 50 MCG/ACT NASAL SUSPENSION 2 s prays each nostril daily until bottle is empty FLUTICASONE PROPIONATE 613607759 99 No Longer Active Jillina Frakerriel MANAGER STAR Active ASMANEX 60 METERED DOSES 220 MCG/INH INHALATION AEROSO L POWDER BREATH ACTIVATED 1 puff bid with rinse after MOMETASONE FUROATE 0194644 4102 No Longer Active Diya De Guzman APRN Active ZITHROMAX Z-REYNA 250 MG ORAL TABLET 2 today, then 1 daily for 4 d ays AZITHROMYCIN 37797075211 No Longer Active Elise Garcia APRN Active TUSSIONEX PENNKINETIC ER 10-8 MG/5ML ORAL SUSPENSION E XTENDED RELEASE 5ml po q12hr PRN Cough HYDROCOD POLST-CHLORPHEN POLST 5 3427044072 No Longer Active Elise Garcia APRN Active PREDNISONE 20 MG ORAL TABLET 2 tabs daily for 3 days, 1 tab daily for 3 days, 1/2 tab daily for 2 days PREDNISONE 09229924902 No Longer Active Diya De Guzman APRN Active AMOXICILLIN 500 MG ORAL CAPSULE 2 po BID x 10 days 201 09/29/08 AMOXICILLIN 93159985414 No Longer Active Diya De Guzman APRN Act nael SINGULAIR 10 MG ORAL TABLET 1 po qday for allergies 20 14/01/12 MONTELUKAST SODIUM 42754816779 No Longer Active Carlton Hu MD Active LEVAQUIN 500 MG ORAL TABLET 1 tablet by mouth daily 20 13/09/24 LEVOFLOXACIN 53354625517 No Longer Active Carlton Hu MD Acti ve FLUTICASONE PROPIONATE 50 MCG/ACT NASAL SUSPENSION 2 s prays each nostril daily for 2 weeks, then 1 spray each nostril daily. FLUTICASONE PROPIONATE 12290321906 Active ALFREDO Holly Active ZITHROMAX 250 MG ORAL TABLET 2 po today, then 1 po q days 2-5 20 13/08/10 AZITHROMYCIN 58062436901 No Longer Active Elise Garcia APRN Active XANAX 0.5 MG ORAL TABLET one tablet by mouth daily prn anxiety 2015 ALPRAZOLAM 68976624912 Active ALFREDO Holly Active CYMBALTA 30 MG ORAL CAPSULE DELAYED RELEASE PARTICLES 1 cap by mouth daily for depression DULOXETINE HCL 36327597113 Active ALFREDO Holly Active CEFDINIR 300 MG ORAL CAPSULE 1 po BID x 10 days CEFDINIR 60989119488 No Longer Active Carlton Hu MD Active ZOCOR 40 MG ORAL TABLET 1 tab by mouth daily SI MVASTATIN 36433235092 No Longer Active Carlton Hu MD Active CYCLOBENZAPRINE HCL 10 MG ORAL TABLET 1 tablet by mouth BID prn had pain CYCLOBENZAPRINE HCL 08150529706 No Longer Active Jayden Hu MD Active LEVOFLOXACIN 500 MG ORAL TABLET 1 tab PO daily x 10 days LEVOFLOXACIN 56031812902 No Longer Active Carlton Hu MD Acti ve PREDNISONE 20 MG ORAL TABLET 3 tab PO qd x 2d, 2 tab P O qd x 2d, 1 tab PO qd x 2d, 1/2 tab PO qd x 2d PREDNISONE 71031341739 No Lo nger Active Carlton Hu MD Active FLUTICASONE PROPIONATE 50 MCG/ACT NASAL SUSPENSION 1 t o 2 sprays each nostril daily FLUTICASONE PROPIONATE 17784492247 No Longer Ac tive Blaine HERNANDEZ Active CHERATUSSIN AC 100-10 MG/5ML ORAL SYRUP 1 tsp by mouth every 4 hours as needed for cough GUAIFENESIN-CODEINE 81292169472 No Longe r Active Blaine HERNANDEZ Active PROMETHAZINE-CODEINE 6.25-10 MG/5ML ORAL SYRUP 1 tsp b y mouth every 6 hours if needed for cough PROMETHAZINE-CODEINE 53387568447 No Longer Active Blaine HERNANDEZ Active CHERATUSSIN AC 100-10 MG/5ML ORAL SYRUP 1 tsp by mouth every 4 hours as needed for cough GUAIFENESIN-CODEINE 86039446539 No Longe r Active Blaine HERNANDEZ Active ZITHROMAX Z-REYNA 250 MG ORAL TABLET 2 today, then 1 daily for 4 d ays AZITHROMYCIN 77617801151 No Longer Active Columba Raida Act nael ZITHROMAX 250 MG ORAL TABLET 2 po today, then 1 po q days 2-5 20 14/03/21 AZITHROMYCIN 56349871498 No Longer Active Carlton Hu MD Active ZITHROMAX Z-REYNA 250 MG ORAL TABLET 2 today, then 1 daily for 4 d ays AZITHROMYCIN 67745826673 No Longer Active Columba Raida Act nael AUGMENTIN 875-125 MG ORAL TABLET 1 po BID x 10 days 13/01/20 AMOXICILLIN-POT CLAVULANATE 88392334193 No Longer Active Diya De Guzman MANAGER STAR Active ZITHROMAX 250 MG ORAL TABLET 2 po today, then 1 po q days 2-5 20 12/08/14 AZITHROMYCIN 22284908734 No Longer Active Carlton Hu MD Active TRAMADOL HCL 50 MG ORAL TABLET 1 po tid with ES Tylenol TRAMADOL HCL 03805945672 Active Adrienne Galvez CONTENT PUBLISHER Active PREMARIN 0.625 MG ORAL TABLET TAKE 1 TAB BY MOUTH DAILY ESTROGENS CONJUGATED 46319921601 No Longer Active Ridge Bess DO A ctive CYMBALTA 30 MG ORAL CAPSULE DELAYED RELEASE PARTICLES 1 cap by mouth daily DULOXETINE HCL 06338957581 No Longer Active Ridge Ya ee DO Active AMOXICILLIN 500 MG ORAL CAPSULE 1 tab by mouth 3 times daily x 10 days AMOXICILLIN 62593333654 No Longer Active Carlton bustamante MD Active AMOXICILLIN 500 MG ORAL CAPSULE 1 tab by mouth 3 times daily x 10 days AMOXICILLIN 24033848136 No Longer Active Carlton bustamante MD Active PROMETHAZINE-CODEINE 6.25-10 MG/5ML ORAL SYRUP 1 tsp b y mouth every 8 hours prn cough PROMETHAZINE-CODEINE 06070116420 No Longer Acti ve Carlton Hu MD Active MEDROL 4 MG ORAL TABLET THERAPY PACK 6 pills x 1 day, then 5 pills x 1 day then 4 pills x 1 day, then 3 pills x 1 day, then 2 pills x 1 day, then 1 pill x 1 day, then stop METHYLPREDNISOLONE 62456138410 No Long er Active Perez Mora MD Active AZITHROMYCIN 250 MG ORAL TABLET 2 po qd x 1 day, then 1 po q d x 4 days AZITHROMYCIN 09234913680 No Longer Active Perez Ambriz MD Active SYMBICORT 160-4.5 MCG/ACT INHALATION AEROSOL 2 puffs bid wit h rinse after BUDESONIDE-FORMOTEROL FUMARATE 97330146098 N o Longer Active Perez Mora MD Active LYRICA 75 MG ORAL CAPSULE TAKE 1 CAPSULE BY MOUTH TWICE DAILY PREGABALIN 91250104410 No Longer Active Carlton Hu MD Acti ve TOPAMAX 25 MG ORAL TABLET 1 qHS x 1 week, then 1 BID x 1 week, then 1 qAM and 2 qHS x 1 week, then 2 BID (migraine prevention) T OPIRAMATE 25819465504 No Longer Active Jerica FUENTES Active TOPAMAX 50 MG ORAL TABLET take 1 tab po BID for migraines. 07/02 TOPIRAMATE 45068967679 No Longer Active Jerica FUENTES Active TOPAMAX 100 MG ORAL TABLET Take 1 tablet po bid TO PIRAMATE 92063161965 Active ALFREDO Holly Active TRIAMCINOLONE ACETONIDE 0.1 % EXTERNAL CREAM apply three roger es daily prn rash TRIAMCINOLONE ACETONIDE 02139126597 No Longer Active Carlton Hu MD Active PAXIL 40 MG ORAL TABLET take 1 tab po qday for depression 0 PAROXETINE HCL 92460182003 Active ALFREDO Holly Active CHERATUSSIN AC 100-10 MG/5ML ORAL SYRUP 5ml po q6hr PRN Cough 20 13/04/14 GUAIFENESIN-CODEINE 08122239811 No Longer Active Carlton Hu MD Active MEDROL 4 MG ORAL TABLET THERAPY PACK 6 tabs on day 1, 5 tabs on day 2, 4 tabs on day 3, 3 tabs on day 4, 2 tabs on day 5, 1 tab on day 6 2013 METHYLPREDNISOLONE 09220972579 No Longer Active Perez Mora MD Active AZITHROMYCIN 250 MG ORAL TABLET 2 po qd x 1 day, then 1 po q d x 4 days AZITHROMYCIN 42190732721 No Longer Active Perez Ambriz MD Active PROPRANOLOL HCL 60 MG ORAL TABLET 1 PO Q D PROPRANOLOL HCL 00146127198 No Longer Active Perez Mora MD Activ e CHERATUSSIN AC 100-10 MG/5ML ORAL SYRUP take one tsp po Q 6h ours prn cough GUAIFENESIN-CODEINE 06985932769 No Longer Active Zia Mora MD Active AUGMENTIN 875-125 MG ORAL TABLET 1 tab by mouth twice daily with food AMOXICILLIN-POT CLAVULANATE 28089248112 No Longer Act nael Perez Mora MD Active CHERATUSSIN AC 100-10 MG/5ML ORAL SYRUP 1 tsp by mouth every 4 hours as needed for cough GUAIFENESIN-CODEINE 51163738043 No Longe r Active uHgo Restrepo MD Active ACETAMINOPHEN-CODEINE #3 300-30 MG ORAL TABLET 1 PO Q 4-6 HRS UT N PAIN ACETAMINOPHEN-CODEINE 48249516779 No Longer Active Hugo Restrepo MD Active LEVAQUIN 500 MG ORAL TABLET take one po QD LEVO FLOXACIN 20682889859 No Longer Active Griffin HERNANDEZ Active PREDNISONE 20 MG ORAL TABLET Take 3 tabs daily for 3 d ays, 2 tabs daily for 3 days, 1 tab daily for 3 days, 1/2 tab daily for 3 days 11/07 PREDNISONE 83889920917 No Longer Active Carlton Hu MD Acti ve AVELOX 400 MG ORAL TABLET 1 tab by mouth daily MOXIFLOXACIN HCL 39294555818 No Longer Active Carlton Hu MD Active CHERATUSSIN AC 100-10 MG/5ML ORAL SYRUP 1 tsp by mouth every 4 hours as needed for cough GUAIFENESIN-CODEINE 55563099474 No Longe r Active Hugo Restrepo MD Active AVELOX 400 MG ORAL TABLET 1 tab by mouth daily MOXIFLOXACIN HCL 45056352639 No Longer Active Marcy De La Rosa MD PhD Active TERBINAFINE HCL 250 MG ORAL TABLET 1 qDay T ERBINAFINE HCL 38529456163 No Longer Active Marcy De La Rosa MD PhD Active CHERATUSSIN AC 100-10 MG/5ML ORAL SYRUP 1 tsp by mouth every 4 hours as needed for cough GUAIFENESIN-CODEINE 87486391188 No Longe r Active Marcy De La Rosa MD PhD Active AVELOX 400 MG ORAL TABLET 1 tab by mouth daily MOXIFLOXACIN HCL 06468786027 No Longer Active Marcy De La Rosa MD PhD Active HYDROCODONE-ACETAMINOPHEN 5-325 MG ORAL TABLET 1 po q 6hr PRN co ugh HYDROCODONE-ACETAMINOPHEN 70683695217 No Longer Active Marcy De La Rosa MD PhD Active PREDNISONE 20 MG ORAL TABLET 2 tabs daily for 3 days, 1 tab daily for 3 days, 1/2 tab daily for 2 days PREDNISONE 83074477924 No Longer Active Carlton Hu MD Active CEFDINIR 300 MG ORAL CAPSULE by mouth twice a day 2011 CEFDINIR 91577967656 No Longer Active Carlton Hu MD Acti ve HYDROCHLOROTHIAZIDE 25 MG ORAL TABLET 1 TAB PO DAILY HYDROCHLOROTHIAZIDE 42715976014 Active ALFREDO Holly tive ACETAMINOPHEN-CODEINE #3 300-30 MG ORAL TABLET 1 tablet po q 4-6 hrs prn pain ACETAMINOPHEN-CODEINE 61692603016 No Longer Active Ridge Bess DO Active ZITHROMAX 250 MG ORAL TABLET 2 po today, then 1 po q days 2-5 20 03/07/07 AZITHROMYCIN 10985951277 No Longer Active Carlton Hu MD Active CHERATUSSIN AC 100-10 MG/5ML ORAL SYRUP take 1 tsp po q4-6 h ours prn cough GUAIFENESIN-CODEINE 45090693642 No Longer Active Jayden Hu MD Active ACETAMINOPHEN-CODEINE #3 300-30 MG ORAL TABLET 1 PO Q 4-6 HR PRN PAIN ACETAMINOPHEN-CODEINE 84276061197 No Longer Active Arnol Hu MD Active LORTAB 7.5-500 MG/15ML ORAL ELIXIR 7.5 ml po q 4 hour prn cough HYDROCODONE-ACETAMINOPHEN 77379937850 No Longer Active aCrlton Hu MD Active PREDNISONE 20 MG ORAL TABLET 1 po bid 3 days, then 1 po q day 3 days PREDNISONE 86452539368 No Longer Active Carlton Hu MD Active CEFDINIR 300 MG ORAL CAPSULE by mouth twice a day 2011 CEFDINIR 76094055450 No Longer Active Carlton Hu MD Acti ve CEFDINIR 300 MG ORAL CAPSULE by mouth twice a day 2010 CEFDINIR 32879463653 No Longer Active Carlton Hu MD Acti ve CEFDINIR 300 MG ORAL CAPSULE by mouth twice a day 2010 CEFDINIR 71109833468 No Longer Active Carlton Hu MD Acti ve TESSALON PERLES 100 MG ORAL CAPSULE 1 tablet by mouth 3 times daily as needed for cough BENZONATATE 66094517031 No Longer Active Carlton Hu MD Active CEFDINIR 300 MG ORAL CAPSULE by mouth twice a day 2010 CEFDINIR 42378235722 No Longer Active Carlton Hu MD Acti ve ZITHROMAX Z-REYNA 250 MG ORAL TABLET 2 today, then 1 daily for 4 d ays AZITHROMYCIN 84055262326 No Longer Active Hugo Restrepo MD Active TESSALON PERLES 100 MG ORAL CAPSULE 1 tablet by mouth 3 times daily as needed for cough ROLFSALBARRON PERLES 100 MG ORAL CAPSULE 37428 7 BENZONATATE Inactive PREDNISONE 20 MG ORAL TABLET 1 po bid 3 days, then 1 po q day 3 days PREDNISONE 20 MG ORAL TABLET 137748 PREDNISONE Greer ctive LORTAB 7.5-500 MG/15ML ORAL [...] cough CHERATUSSIN AC 100-10 MG/5ML ORAL SYRUP 925758 GUAIFENESIN-CODEINE Inactive ACETAMINOPHEN-CODEINE #3 300-30 MG ORAL TABLET 1 tablet po q 4-6 hrs prn pain ACETAMINOPHEN-CODEINE #3 300-30 MG ORAL TABLET ACETAMINOPHEN-CODEINE Inactive HYDROCODONE-ACETAMINOPHEN 5-325 MG ORAL TABLET 1 po q 6hr PRN co ugh HYDROCODONE-ACETAMINOPHEN 5-325 MG ORAL TABLET 678273 HYDROCODONE-ACETAMINOPHEN Inactive AVELOX 400 MG ORAL TABLET 1 tab by mouth daily AVELOX 400 MG ORAL TABLET 121796 MOXIFLOXACIN HCL Inactive CHERATUSSIN AC 100-10 MG/5ML ORAL SYRUP 1 tsp by mouth every 4 hours as needed for cough CHERATUSSIN AC 100-10 MG/5ML ORAL SYRUP 9 66391 GUAIFENESIN-CODEINE Inactive TERBINAFINE HCL 250 MG ORAL TABLET 1 qDay 07/08 TERBINAFINE HCL 250 MG ORAL TABLET 436245 TERBINAFINE HCL Inactive CHERATUSSIN AC 100-10 MG/5ML ORAL SYRUP 1 tsp by mouth every 4 hours as needed for cough CHERATUSSIN AC 100-10 MG/5ML ORAL SYRUP 9 99361 GUAIFENESIN-CODEINE Inactive ACETAMINOPHEN-CODEINE #3 300-30 MG ORAL TABLET 1 PO Q 4-6 HRS UT N PAIN ACETAMINOPHEN-CODEINE #3 300-30 MG ORAL TABLET ACETAMINOPHEN-CODEINE Inactive CHERATUSSIN AC 100-10 MG/5ML ORAL SYRUP 1 tsp by mouth every 4 hours as needed for cough CHERATUSSIN AC 100-10 MG/5ML ORAL SYRUP 9 28845 GUAIFENESIN-CODEINE Inactive AUGMENTIN 875-125 MG ORAL TABLET 1 tab by mouth twice daily with food AUGMENTIN 875-125 MG ORAL TABLET 602602 AMOXICIL MADELINE-POT CLAVULANATE Inactive CHERATUSSIN AC 100-10 MG/5ML ORAL SYRUP take one tsp po Q 6h ours prn cough CHERATUSSIN AC 100-10 MG/5ML ORAL SYRUP 508049 GUAIFENESIN-CODEINE Inactive PROPRANOLOL HCL 60 MG ORAL TABLET 1 PO Q D PROPRANOLOL HCL 60 MG ORAL TABLET 273152 PROPRANOLOL HCL Inactive TOPAMAX 50 MG ORAL TABLET take 1 tab po BID for migraines. 07/02 TOPAMAX 50 MG ORAL TABLET 203525 TOPIRAMATE Inacti ve TOPAMAX 25 MG ORAL TABLET 1 qHS x 1 week, then 1 BID x 1 week, then 1 qAM and 2 qHS x 1 week, then 2 BID (migraine prevention) TOPAMAX 25 MG ORAL TABLET 541873 TOPIRAMATE Inactive LYRICA 75 MG ORAL CAPSULE TAKE 1 CAPSULE BY MOUTH TWICE DAILY LYRICA 75 MG ORAL CAPSULE PREGABALIN Inactive SYMBICORT 160-4.5 MCG/ACT INHALATION AEROSOL 2 puffs bid wit h rinse after SYMBICORT 160-4.5 MCG/ACT INHALATION AEROSOL BUDESONIDE- FORMOTEROL FUMARATE Inactive PROMETHAZINE-CODEINE 6.25-10 MG/5ML ORAL SYRUP 1 tsp b y mouth every 8 hours prn cough PROMETHAZINE-CODEINE 6.25-10 MG/ 5ML ORAL SYRUP 471101 PROMETHAZINE-CODEINE Inactive CYMBALTA 30 MG ORAL CAPSULE DELAYED RELEASE PARTICLES 1 cap by mouth daily CYMBALTA 30 MG ORAL CAPSULE DELAYED RELE ASE PARTICLES 812196 DULOXETINE HCL Inactive PREMARIN 0.625 MG ORAL TABLET TAKE 1 TAB BY MOUTH DAILY PREMARIN 0.625 MG ORAL TABLET ESTROGENS CONJUGATED Inactive CHERATUSSIN AC 100-10 MG/5ML ORAL SYRUP 1 tsp by mouth every 4 hours as needed for cough CHERATUSSIN AC 100-10 MG/5ML ORAL SYRUP 9 38234 GUAIFENESIN-CODEINE Inactive PROMETHAZINE-CODEINE 6.25-10 MG/5ML ORAL SYRUP 1 tsp b y mouth every 6 hours if needed for cough PROMETHAZINE-CODEINE 6.25-10 MG/5ML ORAL SYRUP 781344 PROMETHAZINE-CODEINE Inactive CHERATUSSIN AC 100-10 MG/5ML ORAL SYRUP 1 tsp by mouth every 4 hours as needed for cough CHERATUSSIN AC 100-10 MG/5ML ORAL SYRUP 9 60198 GUAIFENESIN-CODEINE Inactive FLUTICASONE PROPIONATE 50 MCG/ACT NASAL SUSPENSION 1 t o 2 sprays each nostril daily FLUTICASONE PROPIONATE 50 MCG/AC T NASAL SUSPENSION 6185774 FLUTICASONE PROPIONATE Inactive PREDNISONE 20 MG ORAL TABLET 3 tab PO qd x 2d, 2 tab P O qd x 2d, 1 tab PO qd x 2d, 1/2 tab PO qd x 2d PREDNISONE 20 MG ORAL TAB LET 814051 PREDNISONE Inactive LEVOFLOXACIN 500 MG ORAL TABLET 1 tab PO daily x 10 days LEVOFLOXACIN 500 MG ORAL TABLET 332218 LEVOFLOXACIN Inactive CYCLOBENZAPRINE HCL 10 MG ORAL TABLET 1 tablet by mouth BID prn had pain CYCLOBENZAPRINE HCL 10 MG ORAL TABLET 660178 CYCLOBENZAPRINE HCL Inactive ZOCOR 40 MG ORAL TABLET 1 tab by mouth daily 4 ZOCOR 40 MG ORAL TABLET 818113 SIMVASTATIN Inactive TUSSIONEX PENNKINETIC ER 10-8 MG/5ML [...] FLUTICASONE PROPIO EFE 50 MCG/ACT NASAL SUSPENSION 0987683 FLUTICASONE PROPIONATE Inactive TUSSIONEX PENNKINETIC ER 10-8 [...] three days PREDNISONE 20 MG ORAL TABLET 764983 PREDNIS ONE Inactive PROAIR HFA 108 (90 BASE) MCG/ACT INHALATION AEROSOL SO LUTION 2 puffs four times a day as needed PROAIR HFA 108 (90 B ASE) MCG/ACT INHALATION AEROSOL SOLUTION ALBUTEROL SULFATE Inactive PREDNISONE 20 MG ORAL TABLET two tabs by mouth today, then one tab by mouth days two and three and four PREDNISONE 20 MG ORAL TAB LET 628193 PREDNISONE Inactive TUSSIONEX PENNKINETIC ER 10-8 MG/5ML ORAL SUSPENSION E XTENDED RELEASE 5ml po q12hr PRN Cough TUSSIONEX PENNKINETI C ER 10-8 MG/5ML ORAL SUSPENSION EXTENDED RELEASE HYDROCOD POLST-CHLORPHEN POLST I nactive ZITHROMAX Z-REYNA 250 MG ORAL TABLET 2 today, then 1 daily for 4 d ays ZITHROMAX Z-REYNA 250 MG ORAL TABLET 700702 AZITHROMYCIN Inactive CEFDINIR 300 MG ORAL CAPSULE by mouth twice a day 2010 CEFDINIR 300 MG ORAL CAPSULE 20020704 CEFDINIR Inactive CEFDINIR 300 MG ORAL CAPSULE by mouth twice a day 2010 CEFDINIR 300 MG ORAL CAPSULE 20020704 CEFDINIR Inactive CEFDINIR 300 MG ORAL CAPSULE by mouth twice a day 2010 CEFDINIR 300 MG ORAL CAPSULE 471108 CEFDINIR Inactive CEFDINIR 300 MG ORAL CAPSULE by mouth twice a day 2011 CEFDINIR 300 MG ORAL CAPSULE 178836 CEFDINIR Inactive ZITHROMAX 250 MG ORAL TABLET 2 po today, then 1 po q days 2-5 03/07/07 ZITHROMAX 250 MG ORAL TABLET 730998 AZITHROMYCIN Greer ctive CEFDINIR 300 MG ORAL CAPSULE by mouth twice a day 2011 CEFDINIR 300 MG ORAL CAPSULE 20020704 CEFDINIR Inactive PREDNISONE 20 MG ORAL TABLET 2 tabs daily for 3 days, 1 tab daily for 3 days, 1/2 tab daily for 2 days PREDNISONE 20 MG ORAL T ABLET 485401 PREDNISONE Inactive AVELOX 400 MG ORAL TABLET 1 tab by mouth daily AVELOX 400 MG ORAL TABLET 849200 MOXIFLOXACIN HCL Inactive AVELOX 400 MG ORAL TABLET 1 tab by mouth daily AVELOX 400 MG ORAL TABLET 794655 MOXIFLOXACIN HCL Inactive PREDNISONE 20 MG ORAL TABLET Take 3 tabs daily for 3 d ays, 2 tabs daily for 3 days, 1 tab daily for 3 days, 1/2 tab daily for 3 days 11/07 PREDNISONE 20 MG ORAL TABLET 695656 PREDNISONE Inactive LEVAQUIN 500 MG ORAL TABLET take one po QD LEVAQUIN 500 MG ORAL TABLET 718426 LEVOFLOXACIN Inactive AZITHROMYCIN 250 MG ORAL TABLET 2 po qd x 1 day, then 1 po q d x 4 days AZITHROMYCIN 250 MG ORAL TABLET 553969 AZITHROMY GIOVANNI Inactive MEDROL 4 MG ORAL TABLET THERAPY PACK 6 tabs on day 1, 5 tabs on day 2, 4 tabs on day 3, 3 tabs on day 4, 2 tabs on day 5, 1 tab on day 6 2013 MEDROL 4 MG ORAL TABLET THERAPY PACK 251463 METHYLPREDNISOLONE Andrew ctive CHERATUSSIN AC 100-10 MG/5ML ORAL SYRUP 5ml po q6hr PRN Cough 20 13/04/14 CHERATUSSIN AC 100-10 MG/5ML ORAL SYRUP 354617 GUAIFENE SIN-CODEINE Inactive TRIAMCINOLONE ACETONIDE 0.1 % EXTERNAL CREAM apply three roger es daily prn rash TRIAMCINOLONE ACETONIDE 0.1 % EXTERNAL CREAM 101 4314 TRIAMCINOLONE ACETONIDE Inactive AZITHROMYCIN 250 MG ORAL TABLET 2 po qd x 1 day, then 1 po q d x 4 days AZITHROMYCIN 250 MG ORAL TABLET 101557 AZITHROMY GIOVANNI Inactive MEDROL 4 MG ORAL TABLET THERAPY PACK 6 pills x 1 day, then 5 pills x 1 day then 4 pills x 1 day, then 3 pills x 1 day, then 2 pills x 1 day, then 1 pill x 1 day, then stop MEDROL 4 MG ORAL TABLET THERAPY PACK 184254 METHYLPREDNISOLONE Inactive AMOXICILLIN 500 MG ORAL CAPSULE 1 tab by mouth 3 times daily x 10 days AMOXICILLIN 500 MG ORAL CAPSULE 269458 AMOXICILL IN Inactive AMOXICILLIN 500 MG ORAL CAPSULE 1 tab by mouth 3 times daily x 10 days AMOXICILLIN 500 MG ORAL CAPSULE 113020 AMOXICILL IN Inactive ZITHROMAX 250 MG ORAL TABLET 2 po today, then 1 po q days 2-5 20 12/08/14 ZITHROMAX 250 MG ORAL TABLET 947796 AZITHROMYCIN Andrew ctive AUGMENTIN 875-125 MG ORAL TABLET 1 po BID x 10 days 13/01/20 AUGMENTIN 875-125 MG ORAL TABLET 931947 AMOXICILLIN-POT CLAVULANATE Inactive ZITHROMAX Z-REYNA 250 MG ORAL TABLET 2 today, then 1 daily for 4 d ays ZITHROMAX Z-REYNA 250 MG ORAL TABLET [id number] AZITHROMYCIN Inactive ZITHROMAX 250 MG ORAL TABLET 2 po today, then 1 po q days 2-5 20 14/03/21 ZITHROMAX 250 MG ORAL TABLET 599668 AZITHROMYCIN Greer ctive ZITHROMAX Z-REYNA 250 MG ORAL TABLET 2 today, then 1 daily for 4 d ays ZITHROMAX Z-REYNA 250 MG ORAL TABLET 204055 AZITHROMYCIN Inactive CEFDINIR 300 MG ORAL CAPSULE 1 po BID x 10 days 06/21 CEFDINIR 300 MG ORAL CAPSULE [id number] CEFDINIR Inactive ZITHROMAX 250 MG ORAL TABLET 2 po today, then 1 po q days 2-5 20 13/08/10 ZITHROMAX 250 MG ORAL TABLET 271253 AZITHROMYCIN Greer ctive LEVAQUIN 500 MG ORAL TABLET 1 tablet by mouth daily 13/09/24 LEVAQUIN 500 MG ORAL TABLET 198817 LEVOFLOXACIN Inactive SINGULAIR 10 MG ORAL TABLET 1 po qday for allergies 20 14/01/12 SINGULAIR 10 MG ORAL TABLET 066683 MONTELUKAST SODIUM Inactive AMOXICILLIN 500 MG ORAL CAPSULE 2 po BID x 10 days 201 09/29/08 AMOXICILLIN 500 MG ORAL CAPSULE 485414 AMOXICILLIN Inactive PREDNISONE 20 MG ORAL TABLET 2 tabs daily for 3 days, 1 tab daily for 3 days, 1/2 tab daily for 2 days PREDNISONE 20 MG ORAL T ABLET 707135 PREDNISONE Inactive ZITHROMAX Z-REYNA 250 MG ORAL TABLET 2 today, then 1 daily for 4 d ays ZITHROMAX Z-REYNA 250 MG ORAL TABLET 861836 AZITHROMYCIN Inactive PREDNISONE 20 MG ORAL TABLET 2 tabs daily for 3 days, 1 tab daily for 3 days, 1/2 tab daily for 2 days PREDNISONE 20 MG ORAL T ABLET 542445 PREDNISONE Inactive ZITHROMAX 250 MG ORAL TABLET 2 po today, then 1 po q days 2-5 20 14/09/04 ZITHROMAX 250 MG ORAL TABLET 324212 AZITHROMYCIN Greer ctive AMOXICILLIN 500 MG ORAL CAPSULE 1 cap by mouth three times a day AMOXICILLIN 500 MG ORAL CAPSULE 680969 AMOXICILLIN Inactive TERBINAFINE HCL 250 MG ORAL TABLET 1 qDay for nail fungus 7 TERBINAFINE HCL 250 MG ORAL TABLET 898534 TERBINAFINE HCL Inact nael AUGMENTIN 875-125 MG ORAL TABLET 1 po BID x 10 days 16/03/22 AUGMENTIN 875-125 MG ORAL TABLET 646419 AMOXICILLIN-POT CLAVULANATE Inactive PREDNISONE 20 MG ORAL TABLET 2 po qd x 5 days PREDNISONE 20 MG ORAL TABLET 683566 PREDNISONE Inactive AZITHROMYCIN 250 MG ORAL TABLET 2 po qd x 1 day, then 1 po q d x 4 days AZITHROMYCIN 250 MG ORAL TABLET 438646 AZITHROMY GIOAVNNI Inactive Vital Signs Date Name Value Unit [...] 0.96 mg/dL 0.60-1.30 sodium, serum 139 mmol/L 882-690 6463/10/12 potassium, serum 3.8 mmol/L 3.5-5.2 chloride, serum [...] 136-145 Encounters Code Encounter Date Provider Facility [facility]-[id number] Vst-Est Level III 11:12:16 CDT Yanet Bess DO [facility]-94834 Level 3 Est. 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 Patient 09:51:32 REFINERY OPERATOR [employer] Carlton rich MD [facility]-79346 Level 3 Est. Patient 10:26:00 REFINERY OPERATOR [employer] Elise stephenson [facility]-39185 Level 3 Est. Patient 13:35:41 REFINERY OPERATOR [employer] Carlton rich MD [facility]-19430 Level 3 Est. Patient 10:03:52 REFINERY [employer] Carlton rich MD [facility]-99486 Level 3 Est. Patient 12:17:50 CDT Hugo Restrepo MD [facility]-81646 Level 3 Est. Patient 13:42:38 CDT Elise stephenson [facility]-45694 Level 3 Est. Patient 13:23:51 CDT Diya cobian [facility]-07800 Level 3 Est. Patient 14:22:19 REFINERY OPERATOR [employer] Diya cobian [facility]-28512 Level 3 Est. Patient 10:11:46 CDT Carlton rich MD [facility]-23372 Level 3 Est. Patient 17:29:43 CDT Elise Are ll MANAGER STAR [facility] CPT-97665 Level 3 Est. Patient 11:58:06 CDT Elise Are ll MANAGER STAR [facility] CPT-37530 Level 4 Est. Patient 14:36:51 CDT Carlton rich MD [facility] CPT-96221 Level 3 Est. Patient 18:16:00 REFINERY O[employer]ATOR [employer] Blaine Freeman [facility] CPT-67188 Level 3 Est. Patient 09:45:49 REFINERY OPERATOR [employer] Carlton rich MD [facility] CPT-45704 Level 3 Est. Patient 13:19:20 CDT Carlton rich MD [facility]-48560 Level 3 Est. Patient 13:06:43 CDT Ridge tam DO [facility] CPT-69300 Level 3 Est. Patient 10:03:07 CDT Perez Mora MD [facility] CPT-07257 Level 3 Est. Patient 19:50:35 REFINERY OPERATOR [employer] Carlton rich MD [facility] CPT-73575 Level 4 Est. Patient 18:05:01 REFINERY OPERATOR [employer] Carlton rich MD [facility] CPT-56406 Level 3 Est. Patient 10:45:55 REFINERY OPERATOR [employer] Hugo Restrepo MD [facility] CPT-33545 Level 3 Est. Patient 14:12:49 CDT Griffin lincoln [facility] CPT-83636 Level 3 Est. Patient 17:37:24 CDT Carlton rich MD [facility] CPT-12183 Level 3 Est. Patient 16:51:54 CDT Carlton rich MD [facility] CPT-83864 Level 3 Est. Patient 12:18:11 CDT Hugo Restrepo MD [facility] CPT-78149 Level 3 Est. Patient 11:30:25 CDT Marcy crisostomo MD PhD [facility] CPT-44823 Level 3 Est. Patient 12:00:47 REFINERY OPERATOR [employer] Carlton rich MD [facility] CPT-85916 Level 3 Est. Patient 16:31:06 REFINERY OPERATOR [employer] Carlton rich MD [facility] CPT-02379 Level 3 Est. Patient 16:23:24 REFINERY OPERATOR [employer] Ridge tam [facility] CPT-09893 Level 3 Est. Patient 12:34:12 CDT Carlton rich MD [facility] CPT-42175 Level 2 Est. Patient 15:43:33 CDT Robi armstrong MD [facility] CPT-62195 Level 4 Est. Patient 14:04:44 CDT Carlton rich MD [facility] CPT-76451 Level 3 Est. Patient 05:47:59 CDT Ridge tam [facility] CPT-22458 Level 3 Est. Patient 13:12:53 REFINERY OPERATOR [employer] Carlton rich MD [facility] CPT-37301 Level 3 Est. Patient 14:26:53 CDT Hugo [...] CPT-J1100 Decadron 6mg (Dexamethasone) 14:32:13 CDT 2 CPT-73493 Hip bilat min 2V w AP pelvis 13:16:20 CDT 2 CPT-10637 Pelvis only 13:07:33 CDT CPT-49025 Spec Collection and Handling Fee 11:25:12 C DT CPT-26253 Fluzone Quadrivalent Intramuscular Suspe nsion 0.5 ML 14:31:55 CDT CPT-75561 Abx/Therapy Injection 13:28:47 REFINERY OPERATOR [employer] CPT-J2930 Solu Medrol 125 mg (Methyl Prednisolone Sodium Succinate) 12:00:47 REFINERY OPERATOR [employer] CPT-37911 Venipuncture Draw Fee 11:33:31 CDT CPT-60630 EKG Trac and Interp 11:21:09 CDT CPT-50409 Chest 2V Frontal and Lat 11:21:09 CDT 12/15 CPT-06736 Venipuncture Draw Fee 08:02:34 CDT CPT-95111 Chest 2V Frontal and Lat 05:47:59 CDT 06/05
--- OUTSIDE RECORDS SUMMARY | 2019-10-08 09:21 | XMS REPORT | Clinical Summary ---
Author Author Caitlin, Juliana Martinez Organization [facility] Address Unknown Phone Unavailable Allergies, [...] Acute pharyngitis Rhinitis, acute 460 Resolved Hugo eMans Acute nasopharyngitis [common cold] Sinusitis 473.9 Resolved [...] URI 465.9 Inactive Ridge Bess DO Ac reno-sparks upper respiratory infections of unspecified site Body [...] po q12hr PRN Cough HYDROCOD POLST-CHLORPHEN POLST 23260416493 Active David Marianne MARKETING WRITER Active AUGMENTIN 875-125 MG ORAL TABLET 1 po BID x 10 days 20 18/04/16 AMOXICILLIN-POT CLAVULANATE 79546034662 Active David Marianne MARKETING WRITER Active PREDNISONE 50 MG ORAL TABLET Take 50 mg dialy for 6 day s 7 PREDNISONE 33917616842 Active David Marianne MARKETING WRITER Active TUSSIONEX PENNKINETIC ER 10-8 MG/5ML ORAL SUSPENSION E XTENDED RELEASE 5ml po q12hr PRN Cough HYDROCOD POLST-CHLORPHEN POLST 5 6169278037 No Longer Active Cherelle Torres RN Active PREDNISONE 20 MG ORAL TABLET two tabs by mouth today, then one tab by mouth days two and three and four PREDNISONE 48156978405 No Lo nger Active Cherelle Torres RN Active AZITHROMYCIN 250 MG ORAL TABLET 2 po qd x 1 day, then 1 po q d x 4 days AZITHROMYCIN 10968575041 No Longer Active Ridge Bess DO Active PREDNISONE 20 MG ORAL TABLET 2 po qd x 5 days P REDNISONE 67288147189 No Longer Active Perez Mora MD Active PROAIR HFA 108 (90 BASE) MCG/ACT INHALATION AEROSOL SO LUTION 2 puffs four times a day as needed ALBUTEROL SULFATE 26400625190 No Long er Active Becky FUENTES Active ASPIRIN 81 MG ORAL TABLET 1 po qd ASPIRIN 16301517968 Active Carlton Hu MD Active PREDNISONE 20 MG ORAL TABLET 1 tab twice daily for 3 d ay, then one daily for three days PREDNISONE 21419357835 No Longer Active Carlton Hu MD Active AUGMENTIN 875-125 MG ORAL TABLET 1 po BID x 10 days 16/03/22 AMOXICILLIN-POT CLAVULANATE 33949695599 No Longer Active Elise Garcia APRN Active TERBINAFINE HCL 250 MG ORAL TABLET 1 qDay for nail fungus 7 TERBINAFINE HCL 95915703498 No Longer Active Carlton Hu MD A ctive AMOXICILLIN 500 MG ORAL CAPSULE 1 cap by mouth three times a day AMOXICILLIN 50629264994 No Longer Active Carlton Hu MD Active ELMIRON 100 MG ORAL CAPSULE 2 tablets in the am and 1 tablet at hs PENTOSAN POLYSULFATE SODIUM 30767239790 No Longer Active Robert Hu MD Active MUCINEX D 60-600 MG ORAL TABLET EXTENDED RELEASE 12 HOUR 1 t ab po q am PSEUDOEPHEDRINE-GUAIFENESIN 55799073072 No Longer Act nael Carlton Hu MD Active MUCINEX DM MAXIMUM STRENGTH 60-1200 MG ORAL TABLET EXT ENDED RELEASE 12 HOUR 1 tab po q am DEXTROMETHORPHAN-GUAIFENESIN 79983856528 No Longer Active Carlton Hu MD Active TUSSIONEX PENNKINETIC ER 10-8 MG/5ML ORAL SUSPENSION E XTENDED RELEASE 5ml po q12hr PRN Cough HYDROCOD POLST-CHLORPHEN POLST 5 5921104227 No Longer Active Carlton Hu MD Active POTASSIUM CHLORIDE ER 20 MEQ ORAL TABLET EXTENDED RELE ASE Take 1 by mouth 4 times daily for 7 days POTASSIUM CHLORIDE 72295924551 No Longer Active Carlton Hu MD Active ZITHROMAX 250 MG ORAL TABLET 2 po today, then 1 po q days 2-5 20 14/09/04 AZITHROMYCIN 46930107218 No Longer Active Elise Garcia APRN Active TUSSIONEX PENNKINETIC ER 10-8 MG/5ML ORAL SUSPENSION E XTENDED RELEASE 5 ml twice a day as needed for cough HYDROCOD POLST-CHLORPH EN POLST 86158857095 No Longer Active Elise Garcia APRN Active MONTELUKAST SODIUM 10 MG ORAL TABLET 1 po daily for Allergy MONTELUKAST SODIUM 91477914843 Active Carlton Hu MD Ac tive TUSSIONEX PENNKINETIC ER 10-8 MG/5ML ORAL SUSPENSION E XTENDED RELEASE 5ml po q12hr PRN Cough HYDROCOD POLST-CHLORPHEN POLST 5 1334405205 No Longer Active Hugo Restrepo MD Active GABAPENTIN 100 MG ORAL CAPSULE 1 po BID for fibromyalgia GABAPENTIN 72152192591 Active Carlton Hu MD Active LYRICA 100 MG ORAL CAPSULE Take 1 tab po BID for fibromyalgia 20 11/08/21 PREGABALIN 54976474370 No Longer Active Elise Garcia APRN A ctive PREDNISONE 20 MG ORAL TABLET 2 tabs daily for 3 days, 1 tab daily for 3 days, 1/2 tab daily for 2 days PREDNISONE 86587930392 No Longer Active Diya De Guzman APRN Active TUSSIONEX PENNKINETIC ER 10-8 MG/5ML ORAL SUSPENSION E XTENDED RELEASE 5 mL PO q 12 hrs PRN cough HYDROCOD POLST-CHLORPHEN POLST 370640 65802 No Longer Active Jillina Frazell BILL Active FLUTICASONE PROPIONATE 50 MCG/ACT NASAL SUSPENSION 2 s prays each nostril daily until bottle is empty FLUTICASONE PROPIONATE 454379738 99 No Longer Active Jillina Frakerriel MARKETING WRITER Active ASMANEX 60 METERED DOSES 220 MCG/INH INHALATION AEROSO L POWDER BREATH ACTIVATED 1 puff bid with rinse after MOMETASONE FUROATE 5513065 4102 No Longer Active Diya De Guzman APRN Active ZITHROMAX Z-REYNA 250 MG ORAL TABLET 2 today, then 1 daily for 4 d ays AZITHROMYCIN 58958308868 No Longer Active Elise Garcia APRN Active TUSSIONEX PENNKINETIC ER 10-8 MG/5ML ORAL SUSPENSION E XTENDED RELEASE 5ml po q12hr PRN Cough HYDROCOD POLST-CHLORPHEN POLST 5 8954035955 No Longer Active Elise Garcia APRN Active PREDNISONE 20 MG ORAL TABLET 2 tabs daily for 3 days, 1 tab daily for 3 days, 1/2 tab daily for 2 days PREDNISONE 22471566526 No Longer Active Diya De Guzman APRN Active AMOXICILLIN 500 MG ORAL CAPSULE 2 po BID x 10 days 201 09/29/08 AMOXICILLIN 05117834118 No Longer Active Diya De Guzman APRN Act nael SINGULAIR 10 MG ORAL TABLET 1 po qday for allergies 20 14/01/12 MONTELUKAST SODIUM 10153066785 No Longer Active Carlton Hu MD Active LEVAQUIN 500 MG ORAL TABLET 1 tablet by mouth daily 20 13/09/24 LEVOFLOXACIN 72298613148 No Longer Active Carlton Hu MD Acti ve FLUTICASONE PROPIONATE 50 MCG/ACT NASAL SUSPENSION 2 s prays each nostril daily for 2 weeks, then 1 spray each nostril daily. FLUTICASONE PROPIONATE 99771843971 Active ALFREDO Holly Active ZITHROMAX 250 MG ORAL TABLET 2 po today, then 1 po q days 2-5 20 13/08/10 AZITHROMYCIN 69351135893 No Longer Active Elise Garcia APRN Active XANAX 0.5 MG ORAL TABLET one tablet by mouth daily prn anxiety 2015 ALPRAZOLAM 99726533447 Active ALFREDO Holly Active CYMBALTA 30 MG ORAL CAPSULE DELAYED RELEASE PARTICLES 1 cap by mouth daily for depression DULOXETINE HCL 74800591911 Active ALFREDO Holly Active CEFDINIR 300 MG ORAL CAPSULE 1 po BID x 10 days CEFDINIR 73745782915 No Longer Active Carlton Hu MD Active ZOCOR 40 MG ORAL TABLET 1 tab by mouth daily SI MVASTATIN 06063360781 No Longer Active Carlton Hu MD Active CYCLOBENZAPRINE HCL 10 MG ORAL TABLET 1 tablet by mouth BID prn had pain CYCLOBENZAPRINE HCL 34100817540 No Longer Active Jayden Hu MD Active LEVOFLOXACIN 500 MG ORAL TABLET 1 tab PO daily x 10 days LEVOFLOXACIN 01667156225 No Longer Active Carlton Hu MD Acti ve PREDNISONE 20 MG ORAL TABLET 3 tab PO qd x 2d, 2 tab P O qd x 2d, 1 tab PO qd x 2d, 1/2 tab PO qd x 2d PREDNISONE 23169360375 No Lo nger Active Carlton Hu MD Active FLUTICASONE PROPIONATE 50 MCG/ACT NASAL SUSPENSION 1 t o 2 sprays each nostril daily FLUTICASONE PROPIONATE 63251011459 No Longer Ac tive Blaine HERNANDEZ Active CHERATUSSIN AC 100-10 MG/5ML ORAL SYRUP 1 tsp by mouth every 4 hours as needed for cough GUAIFENESIN-CODEINE 43362315987 No Longe r Active Blaine HERNANDEZ Active PROMETHAZINE-CODEINE 6.25-10 MG/5ML ORAL SYRUP 1 tsp b y mouth every 6 hours if needed for cough PROMETHAZINE-CODEINE 16118325078 No Longer Active Blaine HERNANDEZ Active CHERATUSSIN AC 100-10 MG/5ML ORAL SYRUP 1 tsp by mouth every 4 hours as needed for cough GUAIFENESIN-CODEINE 73116833201 No Longe r Active Blaine HERNANDEZ Active ZITHROMAX Z-REYNA 250 MG ORAL TABLET 2 today, then 1 daily for 4 d ays AZITHROMYCIN 79626574513 No Longer Active Columba Raida Act nael ZITHROMAX 250 MG ORAL TABLET 2 po today, then 1 po q days 2-5 20 14/03/21 AZITHROMYCIN 18987351669 No Longer Active Carlton Hu MD Active ZITHROMAX Z-REYNA 250 MG ORAL TABLET 2 today, then 1 daily for 4 d ays AZITHROMYCIN 46967409549 No Longer Active Columba Raida Act nael AUGMENTIN 875-125 MG ORAL TABLET 1 po BID x 10 days 13/01/20 AMOXICILLIN-POT CLAVULANATE 62520604239 No Longer Active Diya De Guzman MARKETING WRITER Active ZITHROMAX 250 MG ORAL TABLET 2 po today, then 1 po q days 2-5 20 12/08/14 AZITHROMYCIN 24650401724 No Longer Active Carlton Hu MD Active TRAMADOL HCL 50 MG ORAL TABLET 1 po tid with ES Tylenol TRAMADOL HCL 67328572823 Active Adrienne Galvez JOB HAND Active PREMARIN 0.625 MG ORAL TABLET TAKE 1 TAB BY MOUTH DAILY ESTROGENS CONJUGATED 70955471288 No Longer Active Ridge Bess DO A ctive CYMBALTA 30 MG ORAL CAPSULE DELAYED RELEASE PARTICLES 1 cap by mouth daily DULOXETINE HCL 93969821639 No Longer Active Ridge Ya ee DO Active AMOXICILLIN 500 MG ORAL CAPSULE 1 tab by mouth 3 times daily x 10 days AMOXICILLIN 01224502255 No Longer Active Carlton bustamante MD Active AMOXICILLIN 500 MG ORAL CAPSULE 1 tab by mouth 3 times daily x 10 days AMOXICILLIN 20613219106 No Longer Active Carlton bustamante MD Active PROMETHAZINE-CODEINE 6.25-10 MG/5ML ORAL SYRUP 1 tsp b y mouth every 8 hours prn cough PROMETHAZINE-CODEINE 70345068322 No Longer Acti ve Carlton Hu MD Active MEDROL 4 MG ORAL TABLET THERAPY PACK 6 pills x 1 day, then 5 pills x 1 day then 4 pills x 1 day, then 3 pills x 1 day, then 2 pills x 1 day, then 1 pill x 1 day, then stop METHYLPREDNISOLONE 92122616561 No Long er Active Perez Mora MD Active AZITHROMYCIN 250 MG ORAL TABLET 2 po qd x 1 day, then 1 po q d x 4 days AZITHROMYCIN 86490169619 No Longer Active Perez Ambriz MD Active SYMBICORT 160-4.5 MCG/ACT INHALATION AEROSOL 2 puffs bid wit h rinse after BUDESONIDE-FORMOTEROL FUMARATE 82624645150 N o Longer Active Perez Mora MD Active LYRICA 75 MG ORAL CAPSULE TAKE 1 CAPSULE BY MOUTH TWICE DAILY PREGABALIN 53783111381 No Longer Active Carlton Hu MD Acti ve TOPAMAX 25 MG ORAL TABLET 1 qHS x 1 week, then 1 BID x 1 week, then 1 qAM and 2 qHS x 1 week, then 2 BID (migraine prevention) T OPIRAMATE 45092054877 No Longer Active Jerica FUENTES Active TOPAMAX 50 MG ORAL TABLET take 1 tab po BID for migraines. 07/02 TOPIRAMATE 97309647680 No Longer Active Jerica FUENTES Active TOPAMAX 100 MG ORAL TABLET Take 1 tablet po bid TO PIRAMATE 62152286467 Active ALFREDO Holly Active TRIAMCINOLONE ACETONIDE 0.1 % EXTERNAL CREAM apply three roger es daily prn rash TRIAMCINOLONE ACETONIDE 30530066860 No Longer Active Carlton Hu MD Active PAXIL 40 MG ORAL TABLET take 1 tab po qday for depression 0 PAROXETINE HCL 29051097040 Active ALFREDO Holly Active CHERATUSSIN AC 100-10 MG/5ML ORAL SYRUP 5ml po q6hr PRN Cough 20 13/04/14 GUAIFENESIN-CODEINE 89617556696 No Longer Active Carlton Hu MD Active MEDROL 4 MG ORAL TABLET THERAPY PACK 6 tabs on day 1, 5 tabs on day 2, 4 tabs on day 3, 3 tabs on day 4, 2 tabs on day 5, 1 tab on day 6 2013 METHYLPREDNISOLONE 56601212008 No Longer Active Perez Mora MD Active AZITHROMYCIN 250 MG ORAL TABLET 2 po qd x 1 day, then 1 po q d x 4 days AZITHROMYCIN 37013815182 No Longer Active Perez Ambriz MD Active PROPRANOLOL HCL 60 MG ORAL TABLET 1 PO Q D PROPRANOLOL HCL 44817637807 No Longer Active Perez Mora MD Activ e CHERATUSSIN AC 100-10 MG/5ML ORAL SYRUP take one tsp po Q 6h ours prn cough GUAIFENESIN-CODEINE 37783187000 No Longer Active Zia Mora MD Active AUGMENTIN 875-125 MG ORAL TABLET 1 tab by mouth twice daily with food AMOXICILLIN-POT CLAVULANATE 59951600413 No Longer Act nael Perez Mora MD Active CHERATUSSIN AC 100-10 MG/5ML ORAL SYRUP 1 tsp by mouth every 4 hours as needed for cough GUAIFENESIN-CODEINE 97257747823 No Longe r Active Hugo Restrepo MD Active ACETAMINOPHEN-CODEINE #3 300-30 MG ORAL TABLET 1 PO Q 4-6 HRS [place] N PAIN ACETAMINOPHEN-CODEINE 33398358853 No Longer Active Hugo Restrepo MD Active LEVAQUIN 500 MG ORAL TABLET take one po QD LEVO FLOXACIN 31019068241 No Longer Active Griffin HERNANDEZ Active PREDNISONE 20 MG ORAL TABLET Take 3 tabs daily for 3 d ays, 2 tabs daily for 3 days, 1 tab daily for 3 days, 1/2 tab daily for 3 days 11/07 PREDNISONE 67952240735 No Longer Active Carlton Hu MD Acti ve AVELOX 400 MG ORAL TABLET 1 tab by mouth daily MOXIFLOXACIN HCL 20135111413 No Longer Active Carlton Hu MD Active CHERATUSSIN AC 100-10 MG/5ML ORAL SYRUP 1 tsp by mouth every 4 hours as needed for cough GUAIFENESIN-CODEINE 84296440504 No Longe r Active Hugo Restrepo MD Active AVELOX 400 MG ORAL TABLET 1 tab by mouth daily MOXIFLOXACIN HCL 01022802374 No Longer Active Marcy De La Rosa MD PhD Active TERBINAFINE HCL 250 MG ORAL TABLET 1 qDay T ERBINAFINE HCL 71604527556 No Longer Active Marcy De La Rosa MD PhD Active CHERATUSSIN AC 100-10 MG/5ML ORAL SYRUP 1 tsp by mouth every 4 hours as needed for cough GUAIFENESIN-CODEINE 44964397308 No Longe r Active Marcy De La Rosa MD PhD Active AVELOX 400 MG ORAL TABLET 1 tab by mouth daily MOXIFLOXACIN HCL 89992817276 No Longer Active Marcy De La Rosa MD PhD Active HYDROCODONE-ACETAMINOPHEN 5-325 MG ORAL TABLET 1 po q 6hr PRN co ugh HYDROCODONE-ACETAMINOPHEN 14186046872 No Longer Active Marcy De La Rosa MD PhD Active PREDNISONE 20 MG ORAL TABLET 2 tabs daily for 3 days, 1 tab daily for 3 days, 1/2 tab daily for 2 days PREDNISONE 08905232703 No Longer Active Carlton Hu MD Active CEFDINIR 300 MG ORAL CAPSULE by mouth twice a day 2011 CEFDINIR 89614388115 No Longer Active Carlton Hu MD Acti ve HYDROCHLOROTHIAZIDE 25 MG ORAL TABLET 1 TAB PO DAILY HYDROCHLOROTHIAZIDE 01435042824 Active Adrienne Galvez JOB HAND Active ACETAMINOPHEN-CODEINE #3 300-30 MG ORAL TABLET 1 tablet po q 4-6 hrs prn pain ACETAMINOPHEN-CODEINE 68066482726 No Longer Active Ridge Bess DO Active ZITHROMAX 250 MG ORAL TABLET 2 po today, then 1 po q days 2-5 20 03/07/07 AZITHROMYCIN 89807204748 No Longer Active Carlton Hu MD Active CHERATUSSIN AC 100-10 MG/5ML ORAL SYRUP take 1 tsp po q4-6 h ours prn cough GUAIFENESIN-CODEINE 19700930595 No Longer Active Jayden Hu MD Active ACETAMINOPHEN-CODEINE #3 300-30 MG ORAL TABLET 1 PO Q 4-6 HR PRN PAIN ACETAMINOPHEN-CODEINE 64682806990 No Longer Active Da raimundo Hu MD Active LORTAB 7.5-500 MG/15ML ORAL ELIXIR 7.5 ml po q 4 hour prn cough HYDROCODONE-ACETAMINOPHEN 66440175558 No Longer Active Carlton Hu MD Active PREDNISONE 20 MG ORAL TABLET 1 po bid 3 days, then 1 po q day 3 days PREDNISONE 62464915398 No Longer Active Carlton Hu MD Active CEFDINIR 300 MG ORAL CAPSULE by mouth twice a day 2011 CEFDINIR 69714443383 No Longer Active Carlton Hu MD Acti ve CEFDINIR 300 MG ORAL CAPSULE by mouth twice a day 2010 CEFDINIR 36353843480 No Longer Active Carlton Hu MD Acti ve CEFDINIR 300 MG ORAL CAPSULE by mouth twice a day 2010 CEFDINIR 01412571774 No Longer Active Carlton Hu MD Acti ve TESSALON PERLES 100 MG ORAL CAPSULE 1 tablet by mouth 3 times daily as needed for cough BENZONATATE 73278388115 No Longer Active Carlton Hu MD Active CEFDINIR 300 MG ORAL CAPSULE by mouth twice a day 2010 CEFDINIR 45027325652 No Longer Active Carlton Hu MD Acti ve ZITHROMAX Z-RENYA 250 MG ORAL TABLET 2 today, then 1 daily for 4 d ays AZITHROMYCIN 72047914878 No Longer Active Hugo Restrepo MD Active TESSALON PERLES 100 MG ORAL CAPSULE 1 tablet by mouth 3 times daily as needed for cough TESSALON PERLES 100 MG ORAL CAPSULE 35436 7 BENZONATATE Inactive PREDNISONE 20 MG ORAL TABLET 1 po bid 3 days, then 1 po q day 3 days PREDNISONE 20 MG ORAL TABLET 307675 PREDNISONE [place] ctive LORTAB 7.5-500 MG/15ML ORAL ELIXIR 7.5 [...] cough CHERATUSSIN AC 100-10 MG/5ML ORAL SYRUP 365680 GUAIFENESIN-CODEINE Inactive ACETAMINOPHEN-CODEINE #3 300-30 MG ORAL TABLET 1 tablet po q 4-6 hrs prn pain ACETAMINOPHEN-CODEINE #3 300-30 MG ORAL TABLET ACETAMINOPHEN-CODEINE Inactive HYDROCODONE-ACETAMINOPHEN 5-325 MG ORAL TABLET 1 po q 6hr PRN co ugh HYDROCODONE-ACETAMINOPHEN 5-325 MG ORAL TABLET 874494 HYDROCODONE-ACETAMINOPHEN Inactive AVELOX 400 MG ORAL TABLET 1 tab by mouth daily AVELOX 400 MG ORAL TABLET 386523 MOXIFLOXACIN HCL Inactive CHERATUSSIN AC 100-10 MG/5ML ORAL SYRUP 1 tsp by mouth every 4 hours as needed for cough CHERATUSSIN AC 100-10 MG/5ML ORAL SYRUP 9 22206 GUAIFENESIN-CODEINE Inactive TERBINAFINE HCL 250 MG ORAL TABLET 1 qDay 07/08 TERBINAFINE HCL 250 MG ORAL TABLET 773400 TERBINAFINE HCL Inactive CHERATUSSIN AC 100-10 MG/5ML ORAL SYRUP 1 tsp by mouth every 4 hours as needed for cough CHERATUSSIN AC 100-10 MG/5ML ORAL SYRUP 9 94145 GUAIFENESIN-CODEINE Inactive ACETAMINOPHEN-CODEINE #3 300-30 MG ORAL TABLET 1 PO Q 4-6 HRS [place] N PAIN ACETAMINOPHEN-CODEINE #3 300-30 MG ORAL TABLET ACETAMINOPHEN-CODEINE Inactive CHERATUSSIN AC 100-10 MG/5ML ORAL SYRUP 1 tsp by mouth every 4 hours as needed for cough CHERATUSSIN AC 100-10 MG/5ML ORAL SYRUP 9 24837 GUAIFENESIN-CODEINE Inactive AUGMENTIN 875-125 MG ORAL TABLET 1 tab by mouth twice daily with food AUGMENTIN 875-125 MG ORAL TABLET 301998 AMOXICIL MADELINE-POT CLAVULANATE Inactive CHERATUSSIN AC 100-10 MG/5ML ORAL SYRUP take one tsp po Q 6h ours prn cough CHERATUSSIN AC 100-10 MG/5ML ORAL SYRUP 792168 GUAIFENESIN-CODEINE Inactive PROPRANOLOL HCL 60 MG ORAL TABLET 1 PO Q D PROPRANOLOL HCL 60 MG ORAL TABLET 055092 PROPRANOLOL HCL Inactive TOPAMAX 50 MG ORAL TABLET take 1 tab po BID for migraines. 07/02 TOPAMAX 50 MG ORAL TABLET 563768 TOPIRAMATE Inacti ve TOPAMAX 25 MG ORAL TABLET 1 qHS x 1 week, then 1 BID x 1 week, then 1 qAM and 2 qHS x 1 week, then 2 BID (migraine prevention) TOPAMAX 25 MG ORAL TABLET 419493 TOPIRAMATE Inactive LYRICA 75 MG ORAL CAPSULE TAKE 1 CAPSULE BY MOUTH TWICE DAILY LYRICA 75 MG ORAL CAPSULE PREGABALIN Inactive SYMBICORT 160-4.5 MCG/ACT INHALATION AEROSOL 2 puffs bid wit h rinse after SYMBICORT 160-4.5 MCG/ACT INHALATION AEROSOL BUDESONIDE- FORMOTEROL FUMARATE Inactive PROMETHAZINE-CODEINE 6.25-10 MG/5ML ORAL SYRUP 1 tsp b y mouth every 8 hours prn cough PROMETHAZINE-CODEINE 6.25-10 MG/ 5ML ORAL SYRUP 360160 PROMETHAZINE-CODEINE Inactive CYMBALTA 30 MG ORAL CAPSULE DELAYED RELEASE PARTICLES 1 cap by mouth daily CYMBALTA 30 MG ORAL CAPSULE DELAYED RELE ASE PARTICLES 216969 DULOXETINE HCL Inactive PREMARIN 0.625 MG ORAL TABLET TAKE 1 TAB BY MOUTH DAILY PREMARIN 0.625 MG ORAL TABLET ESTROGENS CONJUGATED Inactive CHERATUSSIN AC 100-10 MG/5ML ORAL SYRUP 1 tsp by mouth every 4 hours as needed for cough CHERATUSSIN AC 100-10 MG/5ML ORAL SYRUP 9 98431 GUAIFENESIN-CODEINE Inactive PROMETHAZINE-CODEINE 6.25-10 MG/5ML ORAL SYRUP 1 tsp b y mouth every 6 hours if needed for cough PROMETHAZINE-CODEINE 6.25-10 MG/5ML ORAL SYRUP 018060 PROMETHAZINE-CODEINE Inactive CHERATUSSIN AC 100-10 MG/5ML ORAL SYRUP 1 tsp by mouth every 4 hours as needed for cough CHERATUSSIN AC 100-10 MG/5ML ORAL SYRUP 9 84139 GUAIFENESIN-CODEINE Inactive FLUTICASONE PROPIONATE 50 MCG/ACT NASAL SUSPENSION 1 t o 2 sprays each nostril daily FLUTICASONE PROPIONATE 50 MCG/AC T NASAL SUSPENSION 9285136 FLUTICASONE PROPIONATE Inactive PREDNISONE 20 MG ORAL TABLET 3 tab PO qd x 2d, 2 tab P O qd x 2d, 1 tab PO qd x 2d, 1/2 tab PO qd x 2d PREDNISONE 20 MG ORAL TAB LET 745695 PREDNISONE Inactive LEVOFLOXACIN 500 MG ORAL TABLET 1 tab PO daily x 10 days LEVOFLOXACIN 500 MG ORAL TABLET 844016 LEVOFLOXACIN Inactive CYCLOBENZAPRINE HCL 10 MG ORAL TABLET 1 tablet by mouth BID prn had pain CYCLOBENZAPRINE HCL 10 MG ORAL TABLET 138823 CYCLOBENZAPRINE HCL Inactive ZOCOR 40 MG ORAL TABLET 1 tab by mouth daily 4 ZOCOR 40 MG ORAL TABLET 899644 SIMVASTATIN Inactive TUSSIONEX PENNKINETIC ER 10-8 MG/5ML [...] FLUTICASONE PROPIO EFE 50 MCG/ACT NASAL SUSPENSION 4342257 FLUTICASONE PROPIONATE Inactive TUSSIONEX PENNKINETIC ER 10-8 [...] three days PREDNISONE 20 MG ORAL TABLET 180708 PREDNIS ONE Inactive PROAIR HFA 108 (90 BASE) MCG/ACT INHALATION AEROSOL SO LUTION 2 puffs four times a day as needed PROAIR HFA 108 (90 B ASE) MCG/ACT INHALATION AEROSOL SOLUTION ALBUTEROL SULFATE Inactive PREDNISONE 20 MG ORAL TABLET two tabs by mouth today, then one tab by mouth days two and three and four PREDNISONE 20 MG ORAL TAB LET 000510 PREDNISONE Inactive TUSSIONEX PENNKINETIC ER 10-8 MG/5ML ORAL SUSPENSION E XTENDED RELEASE 5ml po q12hr PRN Cough TUSSIONEX PENNKINETI C ER 10-8 MG/5ML ORAL SUSPENSION EXTENDED RELEASE HYDROCOD POLST-CHLORPHEN POLST I nactive ZITHROMAX Z-REYNA 250 MG ORAL TABLET 2 today, then 1 daily for 4 d ays ZITHROMAX Z-REYNA 250 MG ORAL TABLET 865781 AZITHROMYCIN Inactive CEFDINIR 300 MG ORAL CAPSULE by mouth twice a day 2010 CEFDINIR 300 MG ORAL CAPSULE 20020704 CEFDINIR Inactive CEFDINIR 300 MG ORAL CAPSULE by mouth twice a day 2010 CEFDINIR 300 MG ORAL CAPSULE 20020704 CEFDINIR Inactive CEFDINIR 300 MG ORAL CAPSULE by mouth twice a day 2010 CEFDINIR 300 MG ORAL CAPSULE 271836 CEFDINIR Inactive CEFDINIR 300 MG ORAL CAPSULE by mouth twice a day 2011 CEFDINIR 300 MG ORAL CAPSULE 670768 CEFDINIR Inactive ZITHROMAX 250 MG ORAL TABLET 2 po today, then 1 po q days 2-5 03/07/07 ZITHROMAX 250 MG ORAL TABLET 432661 AZITHROMYCIN [place] ctive CEFDINIR 300 MG ORAL CAPSULE by mouth twice a day 2011 CEFDINIR 300 MG ORAL CAPSULE 20020704 CEFDINIR Inactive PREDNISONE 20 MG ORAL TABLET 2 tabs daily for 3 days, 1 tab daily for 3 days, 1/2 tab daily for 2 days PREDNISONE 20 MG ORAL T ABLET 904144 PREDNISONE Inactive AVELOX 400 MG ORAL TABLET 1 tab by mouth daily AVELOX 400 MG ORAL TABLET 938707 MOXIFLOXACIN HCL Inactive AVELOX 400 MG ORAL TABLET 1 tab by mouth daily AVELOX 400 MG ORAL TABLET 405161 MOXIFLOXACIN HCL Inactive PREDNISONE 20 MG ORAL TABLET Take 3 tabs daily for 3 d ays, 2 tabs daily for 3 days, 1 tab daily for 3 days, 1/2 tab daily for 3 days 11/07 PREDNISONE 20 MG ORAL TABLET 925462 PREDNISONE Inactive LEVAQUIN 500 MG ORAL TABLET take one po QD LEVAQUIN 500 MG ORAL TABLET 194967 LEVOFLOXACIN Inactive AZITHROMYCIN 250 MG ORAL TABLET 2 po qd x 1 day, then 1 po q d x 4 days AZITHROMYCIN 250 MG ORAL TABLET 414459 AZITHROMY GIOVANNI Inactive MEDROL 4 MG ORAL TABLET THERAPY PACK 6 tabs on day 1, 5 tabs on day 2, 4 tabs on day 3, 3 tabs on day 4, 2 tabs on day 5, 1 tab on day 6 2013 MEDROL 4 MG ORAL TABLET THERAPY PACK 032281 METHYLPREDNISOLONE [place] ctive CHERATUSSIN AC 100-10 MG/5ML ORAL SYRUP 5ml po q6hr PRN Cough 20 13/04/14 CHERATUSSIN AC 100-10 MG/5ML ORAL SYRUP 880559 GUAIFENE SIN-CODEINE Inactive TRIAMCINOLONE ACETONIDE 0.1 % EXTERNAL CREAM apply three roger es daily prn rash TRIAMCINOLONE ACETONIDE 0.1 % EXTERNAL CREAM 101 4314 TRIAMCINOLONE ACETONIDE Inactive AZITHROMYCIN 250 MG ORAL TABLET 2 po qd x 1 day, then 1 po q d x 4 days AZITHROMYCIN 250 MG ORAL TABLET 778676 AZITHROMY GIOVANNI Inactive MEDROL 4 MG ORAL TABLET THERAPY PACK 6 pills x 1 day, then 5 pills x 1 day then 4 pills x 1 day, then 3 pills x 1 day, then 2 pills x 1 day, then 1 pill x 1 day, then stop MEDROL 4 MG ORAL TABLET THERAPY PACK 103808 METHYLPREDNISOLONE Inactive AMOXICILLIN 500 MG ORAL CAPSULE 1 tab by mouth 3 times daily x 10 days AMOXICILLIN 500 MG ORAL CAPSULE 584149 AMOXICILL IN Inactive AMOXICILLIN 500 MG ORAL CAPSULE 1 tab by mouth 3 times daily x 10 days AMOXICILLIN 500 MG ORAL CAPSULE 720288 AMOXICILL IN Inactive ZITHROMAX 250 MG ORAL TABLET 2 po today, then 1 po q days 2-5 20 12/08/14 ZITHROMAX 250 MG ORAL TABLET 359385 AZITHROMYCIN [place] ctive AUGMENTIN 875-125 MG ORAL TABLET 1 po BID x 10 days 13/01/20 AUGMENTIN 875-125 MG ORAL TABLET 527048 AMOXICILLIN-POT CLAVULANATE Inactive ZITHROMAX Z-REYNA 250 MG ORAL TABLET 2 today, then 1 daily for 4 d ays ZITHROMAX Z-REYNA 250 MG ORAL TABLET 623460 AZITHROMYCIN Inactive ZITHROMAX 250 MG ORAL TABLET 2 po today, then 1 po q days 2-5 20 14/03/21 ZITHROMAX 250 MG ORAL TABLET 544038 AZITHROMYCIN [employer] ctive ZITHROMAX Z-REYNA 250 MG ORAL TABLET 2 today, then 1 daily for 4 d ays ZITHROMAX Z-REYNA 250 MG ORAL TABLET 663020 AZITHROMYCIN Inactive CEFDINIR 300 MG ORAL CAPSULE 1 po BID x 10 days 06/21 CEFDINIR 300 MG ORAL CAPSULE [id number] CEFDINIR Inactive ZITHROMAX 250 MG ORAL TABLET 2 po today, then 1 po q days 2-5 20 13/08/10 ZITHROMAX 250 MG ORAL TABLET 835465 AZITHROMYCIN [employer] LEVAQUIN 500 MG ORAL TABLET 1 tablet by mouth daily 13/09/24 LEVAQUIN 500 MG ORAL TABLET [id number] LEVOFLOXACIN Inactive SINGULAIR 10 MG ORAL TABLET 1 po qday for allergies 20 14/01/12 SINGULAIR 10 MG ORAL TABLET 377554 MONTELUKAST SODIUM Inactive AMOXICILLIN 500 MG ORAL CAPSULE 2 po BID x 10 days 201 09/29/08 AMOXICILLIN 500 MG ORAL CAPSULE 935116 AMOXICILLIN Inactive PREDNISONE 20 MG ORAL TABLET 2 tabs daily for 3 days, 1 tab daily for 3 days, 1/2 tab daily for 2 days PREDNISONE 20 MG ORAL T ABLET 811491 PREDNISONE Inactive ZITHROMAX Z-REYNA 250 MG ORAL TABLET 2 today, then 1 daily for 4 d ays ZITHROMAX Z-REYNA 250 MG ORAL TABLET 176410 AZITHROMYCIN Inactive PREDNISONE 20 MG ORAL TABLET 2 tabs daily for 3 days, 1 tab daily for 3 days, 1/2 tab daily for 2 days PREDNISONE 20 MG ORAL T ABLET 180663 PREDNISONE Inactive ZITHROMAX 250 MG ORAL TABLET 2 po today, then 1 po q days 2-5 20 14/09/04 ZITHROMAX 250 MG ORAL TABLET 882282 AZITHROMYCIN [facility] ct[facility] AMOXICILLIN 500 MG ORAL CAPSULE 1 cap by mouth three times a day AMOXICILLIN 500 MG ORAL CAPSULE 657912 AMOXICILLIN Inactive TERBINAFINE HCL 250 MG ORAL TABLET 1 qDay for nail fungus 7 TERBINAFINE HCL 250 MG ORAL TABLET 654172 TERBINAFINE HCL Inact nael AUGMENTIN 875-125 MG ORAL TABLET 1 po BID x 10 days 16/03/22 AUGMENTIN 875-125 MG ORAL TABLET 555063 AMOXICILLIN-POT CLAVULANATE Inactive PREDNISONE 20 MG ORAL TABLET 2 po qd x 5 days PREDNISONE 20 MG ORAL TABLET 168637 PREDNISONE Inactive AZITHROMYCIN 250 MG ORAL TABLET 2 po qd x 1 day, then 1 po q d x 4 days AZITHROMYCIN 250 MG ORAL TABLET 341346 AZITHROMY GIOVANNI Inactive Vital Signs Date Name [...] - Chem istry sodium, serum 139 mmol/L 608-052 7250/03/19 potassium, serum 3.6 mmol/L 3.5-5.2 chloride, serum 100 mmol/L 98-107 carbon dioxide, venous blood 30.3 mmol/L 21.0-32 .0 blood glucose 101 mg/dL 65-110 calcium, serum 9.4 mg/dL 8.5-10.1 urea nitrogen, blood 10 mg/dL 7-18 creatinine, serum 0.96 mg/dL 0.60-1.30 sodium, serum 139 mmol/L 289-891 3042/10/12 potassium, serum 3.8 mmol/L 3.5-5.2 chloride, serum 102 mmol/L 98-107 carbon dioxide, venous blood 29.4 mmol/L 21.0-32 .0 blood glucose 103 mg/dL 65-95 calcium, serum 8.8 mg/dL 8.5-10.1 urea nitrogen, blood 10 mg/dL 7-18 creatinine, serum 0.97 mg/dL 0.60-1.30 Estimated Glomerular Filtration Rate (calc) 62 (?) mL/min/1.73m2 = OR > 60 mL/min Encounters Code Encounter Date Provider Facility CPT-33688 [id number]-Cal Vst-Est Level III 11:12:16 CDT Yanet Bess DO [facility]-51108 Level 3 Est. Patient 11:34:49 FOREIGN CLERK Perez Mora MD [facility]-22264 Level 4 Est. Patient 09:51:32 FOREIGN CLERK Carlton rich MD [facility]-79391 Level 3 Est. Patient 10:26:00 FOREIGN CLERK Elise stephenson [facility]-76639 Level 3 Est. Patient 13:35:41 FOREIGN CLERK Carlton rich MD [facility]-20810 Level 3 Est. Patient 10:03:52 FOREIGN CLERK Carlton rich MD [facility]-95591 Level 3 Est. Patient 12:17:50 CDT Hugo Restrepo MD [facility]-04893 Level 3 Est. Patient 13:42:38 CDT Elise stephenson [facility]-29553 Level 3 Est. Patient 13:23:51 CDT Dyia cobian [facility]-31926 Level 3 Est. Patient 14:22:19 FOREIGN CLERK Diya cobian [facility]-27677 Level 3 Est. Patient 10:11:46 CDT Carlton rich MD [facility]-41377 Level 3 Est. Patient 17:29:43 CDT Elise Are ll MARKETING WRITER [facility] CPT-09968 Level 3 Est. Patient 11:58:06 CDT Elise Are ll MARKETING WRITER [facility] CPT-80512 Level 4 Est. Patient 14:36:51 CDT Carlton rich MD [facility] CPT-98006 Level 3 Est. Patient 18:16:00 FOREIGN CLERK [facility]49321 Level 3 Est. Patient 09:45:49 FOREIGN CLERK Carlton rich MD [facility] CPT-93774 Level 3 Est. Patient 13:19:20 CDT Carlton rich MD [facility]-53289 Level 3 Est. Patient 13:06:43 CDT Ridge tam DO [facility] CPT-63787 Level 3 Est. Patient 10:03:07 CDT Perez Mora MD [facility] CPT-80490 Level 3 Est. Patient 19:50:35 FOREIGN CLERK Carlotn rich MD [facility] CPT-12500 Level 4 Est. Patient 18:05:01 FOREIGN CLERK Carlton rich MD [facility] CPT-87197 Level 3 Est. Patient 10:45:55 FOREIGN CLERK Hugo Restrepo MD [facility] CPT-07067 Level 3 Est. Patient 14:12:49 CDT Griffin lincoln [facility] CPT-61933 Level 3 Est. Patient 17:37:24 CDT Carlton rich MD [facility] CPT-71554 Level 3 Est. Patient 16:51:54 CDT Carlton rich MD [facility] CPT-39884 Level 3 Est. Patient 12:18:11 CDT Hugo Restrepo MD [facility] CPT-42893 Level 3 Est. Patient 11:30:25 CDT Marcy crisostomo MD PhD [facility] CPT-60936 Level 3 Est. Patient 12:00:47 FOREIGN CLERK Carlton rich MD [facility] CPT-72676 Level 3 Est. Patient 16:31:06 FOREIGN CLERK Carlton rich MD [facility] CPT-23687 Level 3 Est. Patient 16:23:24 FOREIGN CLERK Ridge tam [facility] CPT-95324 Level 3 Est. Patient 12:34:12 CDT Carlton rich MD [facility] CPT-31063 Level 2 Est. Patient 15:43:33 CDT Robi armstrong MD [facility] CPT-30224 Level 4 Est. Patient 14:04:44 CDT Carlton rich MD [facility] CPT-86783 Level 3 Est. Patient 05:47:59 CDT Ridge tam [facility] CPT-47476 Level 3 Est. Patient 13:12:53 FOREIGN CLERK Carlton rich MD [facility] CPT-55207 Level 3 Est. Patient 14:26:53 CDT Hugo Restrepo MD [facility] Procedures Code Procedure Name Date Entry Date Standard Desc ription CPT-000 Give Appropriate Flu Vaccine 14:14:31 CDT 2 CPT-J1040 Depo Medrol 80 mg (Methyl Prednisolone A cetate) 10:42:44 CDT CPT-J1100 Decadron 8mg (Dexamethasone) 10:42:44 CDT 2 CPT-J0696 Rocephin 1gm Inj Solr 14:32:13 CDT CPT-J1020 Depo Medrol 60 mg (Methyl Prednisolone A cetate) 14:32:13 CDT CPT-J1100 Decadron 6mg (Dexamethasone) 14:32:13 CDT 2 CPT-11349 Hip bilat min 2V w AP pelvis 13:16:20 CDT 2 CPT-35013 Pelvis only 13:07:33 CDT CPT-06399 Spec Collection and Handling Fee 11:25:12 C DT CPT-87053 Fluzone Quadrivalent Intramuscular Suspe nsion 0.5 ML 14:31:55 CDT CPT-17363 Abx/Therapy Injection 13:28:47 FOREIGN CLERK CPT-J2930 Solu Medrol 125 mg (Methyl Prednisolone Sodium Succinate) 12:00:47 FOREIGN CLERK CPT-12109 Venipuncture Draw Fee 11:33:31 CDT CPT-94140 EKG Trac and Interp 11:21:09 CDT CPT-53485 Chest 2V Frontal and Lat 11:21:09 CDT 12/15 CPT-90890 Venipuncture Draw Fee 08:02:34 CDT CPT-17883 Chest 2V Frontal and Lat 05:47:59 CDT 06/05
--- OUTSIDE RECORDS SUMMARY | 2019-10-08 09:22 | XMS REPORT | Clinical Summary ---
Author Author Caitlin, Juliana Martinez Organization [employer] [facility] Address Unknown Phone Unavailable Allergies, Adverse Reactions, Alerts Allergy Name Reaction Description Start Date Severity Status Pr ovider No Known Allergies Nakul Nicolas RMA Conditions or Problems Problem Name Problem [...] URI 465.9 Inactive Ridge Bess DO Ac [place] upper respiratory infections of unspecified site Body Mass Index 35.0-35.9 Adult Active Yanet Bess DO Body Mass Index 35.0-35.9, adult Upper respiratory infection, viral 465.9 Active 2 Perez Mora MD Acute upper respiratory infections of un specified site BRONCHITIS ICD-490 Inactive Hugo Restrepo MD 201 [...] Generic Name NDC Status Provider Patient Instruction AZITHROMYCIN 250 MG ORAL TABLET 2 po qd x 1 day, then 1 po q d x 4 days AZITHROMYCIN 13030715523 No Longer Active Ridge Bess DO Active PREDNISONE 20 MG ORAL TABLET two tabs by mouth today, then one tab by mouth days two and three and four PREDNISONE 39444329622 Active Lyndsay Mora MD Active PREDNISONE 20 MG ORAL TABLET 2 po qd x 5 days P REDNISONE 58504504385 No Longer Active Perez Mora MD Active PROAIR HFA 108 (90 BASE) MCG/ACT INHALATION AEROSOL SO LUTION 2 puffs four times a day as needed ALBUTEROL SULFATE 49462304583 No Long er Active Becky FUENTES Active ASPIRIN 81 MG ORAL TABLET 1 po qd ASPIRIN 36732647512 Active Carlton Hu MD Active PREDNISONE 20 MG ORAL TABLET 1 tab twice daily for 3 d ay, then one daily for three days PREDNISONE 81164402971 No Longer Active Carlton Hu MD Active AUGMENTIN 875-125 MG ORAL TABLET 1 po BID x 10 days 20 16/03/22 AMOXICILLIN-POT CLAVULANATE 69396803521 No Longer Active Elise Garcia APRN Active TERBINAFINE HCL 250 MG ORAL TABLET 1 qDay for nail fungus 7 TERBINAFINE HCL 75194486730 No Longer Active Carlton Hu MD A ctive TUSSIONEX PENNKINETIC ER 10-8 MG/5ML ORAL SUSPENSION E XTENDED RELEASE 5ml po q12hr PRN Cough HYDROCOD POLST-CHLORPHEN POLST 41443140380 Active Carlton Hu MD Active AMOXICILLIN 500 MG ORAL CAPSULE 1 cap by mouth three times a day AMOXICILLIN 30600253438 No Longer Active Carlton Hu MD Active ELMIRON 100 MG ORAL CAPSULE 2 tablets in the am and 1 tablet at hs PENTOSAN POLYSULFATE SODIUM 22368786575 No Longer Active Robert jade Hu MD Active MUCINEX D 60-600 MG ORAL TABLET EXTENDED RELEASE 12 HOUR 1 t ab po q am PSEUDOEPHEDRINE-GUAIFENESIN 62388747645 No Longer Act nael Carlton Hu MD Active MUCINEX DM MAXIMUM STRENGTH 60-1200 MG ORAL TABLET EXT ENDED RELEASE 12 HOUR 1 tab po q am DEXTROMETHORPHAN-GUAIFENESIN 63313003179 No Longer Active Carlton Hu MD Active TUSSIONEX PENNKINETIC ER 10-8 MG/5ML ORAL SUSPENSION E XTENDED RELEASE 5ml po q12hr PRN Cough HYDROCOD POLST-CHLORPHEN POLST 5 0218370832 No Longer Active Carlton Hu MD Active POTASSIUM CHLORIDE ER 20 MEQ ORAL TABLET EXTENDED RELE ASE Take 1 by mouth 4 times daily for 7 days POTASSIUM CHLORIDE 35662044808 No Longer Active Carlton Hu MD Active ZITHROMAX 250 MG ORAL TABLET 2 po today, then 1 po q days 2-5 14/09/04 AZITHROMYCIN 48856333466 No Longer Active Elise Garcia APRN Active TUSSIONEX PENNKINETIC ER 10-8 MG/5ML ORAL SUSPENSION E XTENDED RELEASE 5 ml twice a day as needed for cough HYDROCOD POLST-CHLORPH EN POLST 20704588701 No Longer Active Elise Garcia APRN Active MONTELUKAST SODIUM 10 MG ORAL TABLET 1 po daily for Allergy MONTELUKAST SODIUM 66324660697 Active Carlton Hu MD Ac tive TUSSIONEX PENNKINETIC ER 10-8 MG/5ML ORAL SUSPENSION E XTENDED RELEASE 5ml po q12hr PRN Cough HYDROCOD POLST-CHLORPHEN POLST 5 5177660067 No Longer Active Hugo Restrepo MD Active GABAPENTIN 100 MG ORAL CAPSULE 1 po BID for fibromyalgia GABAPENTIN 25934009514 Active Carlton Hu MD Active LYRICA 100 MG ORAL CAPSULE Take 1 tab po BID for fibromyalgia 20 11/08/21 PREGABALIN 11729015475 No Longer Active Elise Garcia BOAT MASTER A ctive PREDNISONE 20 MG ORAL TABLET 2 tabs daily for 3 days, 1 tab daily for 3 days, 1/2 tab daily for 2 days PREDNISONE 44880149743 No Longer Active Jillina Frazell BOAT MASTER Active TUSSIONEX PENNKINETIC ER 10-8 MG/5ML ORAL SUSPENSION E XTENDED RELEASE 5 mL PO q 12 hrs PRN cough HYDROCOD POLST-CHLORPHEN POLST 026733 05312 No Longer Active Jillina Frazell BOAT MASTER Active FLUTICASONE PROPIONATE 50 MCG/ACT NASAL SUSPENSION 2 s prays each nostril daily until bottle is empty FLUTICASONE PROPIONATE 916835836 99 No Longer Active Jillina Frazell BOAT MASTER Active ASMANEX 60 METERED DOSES 220 MCG/INH INHALATION AEROSO L POWDER BREATH ACTIVATED 1 puff bid with rinse after MOMETASONE FUROATE 2205320 4102 No Longer Active Jillina Frazell BOAT MASTER Active ZITHROMAX Z-REYNA 250 MG ORAL TABLET 2 today, then 1 daily for 4 d ays AZITHROMYCIN 18450800859 No Longer Active Elise Garcia BOAT MASTER Active TUSSIONEX PENNKINETIC ER 10-8 MG/5ML ORAL SUSPENSION E XTENDED RELEASE 5ml po q12hr PRN Cough HYDROCOD POLST-CHLORPHEN POLST 5 3680548263 No Longer Active Elise Garcia BOAT MASTER Active PREDNISONE 20 MG ORAL TABLET 2 tabs daily for 3 days, 1 tab daily for 3 days, 1/2 tab daily for 2 days PREDNISONE 18107939510 No Longer Active Jillina Frazell BOAT MASTER Active AMOXICILLIN 500 MG ORAL CAPSULE 2 po BID x 10 days 201 09/29/08 AMOXICILLIN 10193605676 No Longer Active Jillina Frazell BOAT MASTER Act nael SINGULAIR 10 MG ORAL TABLET 1 po qday for allergies 20 14/01/12 MONTELUKAST SODIUM 99225110805 No Longer Active Carlton Hu MD Active LEVAQUIN 500 MG ORAL TABLET 1 tablet by mouth daily 20 13/09/24 LEVOFLOXACIN 49350514757 No Longer Active Carlton Hu MD Acti ve FLUTICASONE PROPIONATE 50 MCG/ACT NASAL SUSPENSION 2 s prays each nostril daily for 2 weeks, then 1 spray each nostril daily. FLUTICASONE PROPIONATE 21673039315 Active ALFREDO Holly Active ZITHROMAX 250 MG ORAL TABLET 2 po today, then 1 po q days 2-5 20 13/08/10 AZITHROMYCIN 50144452136 No Longer Active Elise Garcia APRN Active XANAX 0.5 MG ORAL TABLET one tablet by mouth daily prn anxiety 2015 ALPRAZOLAM 82349627363 Active ALFREDO Holly Active CYMBALTA 30 MG ORAL CAPSULE DELAYED RELEASE PARTICLES 1 cap by mouth daily for depression DULOXETINE HCL 93607165915 Active ALFREDO Holly Active CEFDINIR 300 MG ORAL CAPSULE 1 po BID x 10 days CEFDINIR 11144802948 No Longer Active Carlton Hu MD Active ZOCOR 40 MG ORAL TABLET 1 tab by mouth daily SI MVASTATIN 74667756175 No Longer Active Carlton Hu MD Active CYCLOBENZAPRINE HCL 10 MG ORAL TABLET 1 tablet by mouth BID prn had pain CYCLOBENZAPRINE HCL 34640952256 No Longer Active Jayden Hu MD Active LEVOFLOXACIN 500 MG ORAL TABLET 1 tab PO daily x 10 days LEVOFLOXACIN 14860219577 No Longer Active Carlton Hu MD Acti ve PREDNISONE 20 MG ORAL TABLET 3 tab PO qd x 2d, 2 tab P O qd x 2d, 1 tab PO qd x 2d, 1/2 tab PO qd x 2d PREDNISONE 63089592500 No Lo nger Active Carlton Hu MD Active FLUTICASONE PROPIONATE 50 MCG/ACT NASAL SUSPENSION 1 t o 2 sprays each nostril daily FLUTICASONE PROPIONATE 68526311653 No Longer Ac tive Blaine HERNANDEZ Active CHERATUSSIN AC 100-10 MG/5ML ORAL SYRUP 1 tsp by mouth every 4 hours as needed for cough GUAIFENESIN-CODEINE 37300768540 No Longe r Active Blaine HERNANDEZ Active PROMETHAZINE-CODEINE 6.25-10 MG/5ML ORAL SYRUP 1 tsp b y mouth every 6 hours if needed for cough PROMETHAZINE-CODEINE 66569846957 No Longer Active Blaine HERNANDEZ Active CHERATUSSIN AC 100-10 MG/5ML ORAL SYRUP 1 tsp by mouth every 4 hours as needed for cough GUAIFENESIN-CODEINE 92221732439 No Longe r Active Blaine HERNANDEZ Active ZITHROMAX Z-REYNA 250 MG ORAL TABLET 2 today, then 1 daily for 4 d ays AZITHROMYCIN 49129341465 No Longer Active Columba Raida Act nael ZITHROMAX 250 MG ORAL TABLET 2 po today, then 1 po q days 2-5 20 14/03/21 AZITHROMYCIN 82074164260 No Longer Active Carlton Hu MD Active ZITHROMAX Z-REYNA 250 MG ORAL TABLET 2 today, then 1 daily for 4 d ays AZITHROMYCIN 76479042705 No Longer Active Columba Raida Act nael AUGMENTIN 875-125 MG ORAL TABLET 1 po BID x 10 days 13/01/20 AMOXICILLIN-POT CLAVULANATE 53607060051 No Longer Active Diya De Guzman APRN Active ZITHROMAX 250 MG ORAL TABLET 2 po today, then 1 po q days 2-5 20 12/08/14 AZITHROMYCIN 86049727380 No Longer Active Carlton Hu MD Active TRAMADOL HCL 50 MG ORAL TABLET 1 po tid with ES Tylenol TRAMADOL HCL 24327264779 Active Adrienne Means Leonor [employer]CR[employer] MASON Active PREMARIN 0.625 MG ORAL TABLET TAKE 1 TAB BY MOUTH DAILY ESTROGENS CONJUGATED 35272740120 No Longer Active Ridge Bess DO A ctive CYMBALTA 30 MG ORAL CAPSULE DELAYED RELEASE PARTICLES 1 cap by mouth daily DULOXETINE HCL 99575184969 No Longer Active Ridge Ya ee DO Active AMOXICILLIN 500 MG ORAL CAPSULE 1 tab by mouth 3 times daily x 10 days AMOXICILLIN 36663351065 No Longer Active Carlton bustamante MD Active AMOXICILLIN 500 MG ORAL CAPSULE 1 tab by mouth 3 times daily x 10 days AMOXICILLIN 28521125804 No Longer Active Carlton bustamante MD Active PROMETHAZINE-CODEINE 6.25-10 MG/5ML ORAL SYRUP 1 tsp b y mouth every 8 hours prn cough PROMETHAZINE-CODEINE 35421246664 No Longer Acti ve Carlton Hu MD Active MEDROL 4 MG ORAL TABLET THERAPY PACK 6 pills x 1 day, then 5 pills x 1 day then 4 pills x 1 day, then 3 pills x 1 day, then 2 pills x 1 day, then 1 pill x 1 day, then stop METHYLPREDNISOLONE 55305455307 No Long er Active Perez Mora MD Active AZITHROMYCIN 250 MG ORAL TABLET 2 po qd x 1 day, then 1 po q d x 4 days AZITHROMYCIN 15983626673 No Longer Active Perez Ambriz MD Active SYMBICORT 160-4.5 MCG/ACT INHALATION AEROSOL 2 puffs bid wit h rinse after BUDESONIDE-FORMOTEROL FUMARATE 23585202603 N o Longer Active Perez Mora MD Active LYRICA 75 MG ORAL CAPSULE TAKE 1 CAPSULE BY MOUTH TWICE DAILY PREGABALIN 57708753034 No Longer Active Carlton Hu MD Acti ve TOPAMAX 25 MG ORAL TABLET 1 qHS x 1 week, then 1 BID x 1 week, then 1 qAM and 2 qHS x 1 week, then 2 BID (migraine prevention) T OPIRAMATE 38004767334 No Longer Active Jerica FUENTES Active TOPAMAX 50 MG ORAL TABLET take 1 tab po BID for migraines. 07/02 TOPIRAMATE 30150020261 No Longer Active Jerica FUENTES Active TOPAMAX 100 MG ORAL TABLET Take 1 tablet po bid TO PIRAMATE 16608512472 Active ALFREDO Holly Active TRIAMCINOLONE ACETONIDE 0.1 % EXTERNAL CREAM apply three roger es daily prn rash TRIAMCINOLONE ACETONIDE 68592514929 No Longer Active Carlton Hu MD Active PAXIL 40 MG ORAL TABLET take 1 tab po qday for depression 0 PAROXETINE HCL 05106782177 Active ALFREDO Holly Active CHERATUSSIN AC 100-10 MG/5ML ORAL SYRUP 5ml po q6hr PRN Cough 20 13/04/14 GUAIFENESIN-CODEINE 79066416468 No Longer Active Carlton Hu MD Active MEDROL 4 MG ORAL TABLET THERAPY PACK 6 tabs on day 1, 5 tabs on day 2, 4 tabs on day 3, 3 tabs on day 4, 2 tabs on day 5, 1 tab on day 6 2013 METHYLPREDNISOLONE 63884707652 No Longer Active Perez Mora MD Active AZITHROMYCIN 250 MG ORAL TABLET 2 po qd x 1 day, then 1 po q d x 4 days AZITHROMYCIN 33382284061 No Longer Active Perez Ambriz MD Active PROPRANOLOL HCL 60 MG ORAL TABLET 1 PO Q D PROPRANOLOL HCL 89120644163 No Longer Active Perez Mora MD Activ e CHERATUSSIN AC 100-10 MG/5ML ORAL SYRUP take one tsp po Q 6h ours prn cough GUAIFENESIN-CODEINE 12492642801 No Longer Active Zia Mora MD Active AUGMENTIN 875-125 MG ORAL TABLET 1 tab by mouth twice daily with food AMOXICILLIN-POT CLAVULANATE 24744889300 No Longer Act nael Mora MD Active CHERATUSSIN AC 100-10 MG/5ML ORAL SYRUP 1 tsp by mouth every 4 hours as needed for cough GUAIFENESIN-CODEINE 92689864358 No Longe r Active Hugo Restrepo MD Active ACETAMINOPHEN-CODEINE #3 300-30 MG ORAL TABLET 1 PO Q 4-6 HRS NC N PAIN ACETAMINOPHEN-CODEINE 26684655378 No Longer Active Hugo Restrepo MD Active LEVAQUIN 500 MG ORAL TABLET take one po QD LEVO FLOXACIN 02670683957 No Longer Active Griffin HERNANDEZ Active PREDNISONE 20 MG ORAL TABLET Take 3 tabs daily for 3 d ays, 2 tabs daily for 3 days, 1 tab daily for 3 days, 1/2 tab daily for 3 days 11/07 PREDNISONE 05077868907 No Longer Active Carlton Hu MD Acti ve AVELOX 400 MG ORAL TABLET 1 tab by mouth daily MOXIFLOXACIN HCL 53113124338 No Longer Active Carlton Hu MD Active CHERATUSSIN AC 100-10 MG/5ML ORAL SYRUP 1 tsp by mouth every 4 hours as needed for cough GUAIFENESIN-CODEINE 53167492749 No Longe r Active Hugo Restrepo MD Active AVELOX 400 MG ORAL TABLET 1 tab by mouth daily MOXIFLOXACIN HCL 75783265812 No Longer Active Marcy De La Rosa MD PhD Active TERBINAFINE HCL 250 MG ORAL TABLET 1 qDay T ERBINAFINE HCL 32233299223 No Longer Active Marcy De La Rosa MD PhD Active CHERATUSSIN AC 100-10 MG/5ML ORAL SYRUP 1 tsp by mouth every 4 hours as needed for cough GUAIFENESIN-CODEINE 34371239009 No Longe r Active Marcy De La Rosa MD PhD Active AVELOX 400 MG ORAL TABLET 1 tab by mouth daily MOXIFLOXACIN HCL 65402147483 No Longer Active Marcy De La Rosa MD PhD Active HYDROCODONE-ACETAMINOPHEN 5-325 MG ORAL TABLET 1 po q 6hr PRN co ugh HYDROCODONE-ACETAMINOPHEN 13844273313 No Longer Active Marcy De La Rosa MD PhD Active PREDNISONE 20 MG ORAL TABLET 2 tabs daily for 3 days, 1 tab daily for 3 days, 1/2 tab daily for 2 days PREDNISONE 88283041877 No Longer Active Carlton Hu MD Active CEFDINIR 300 MG ORAL CAPSULE by mouth twice a day 2011 CEFDINIR 79448786892 No Longer Active Carlton Hu MD Acti ve HYDROCHLOROTHIAZIDE 25 MG ORAL TABLET 1 TAB PO DAILY HYDROCHLOROTHIAZIDE 43540009110 Active Adrienne Galvez CONCRETE MASON Active ACETAMINOPHEN-CODEINE #3 300-30 MG ORAL TABLET 1 tablet po q 4-6 hrs prn pain ACETAMINOPHEN-CODEINE 49419716341 No Longer Active Ridge Bess DO Active ZITHROMAX 250 MG ORAL TABLET 2 po today, then 1 po q days 2-5 20 03/07/07 AZITHROMYCIN 34216698654 No Longer Active Carlton Hu MD Active CHERATUSSIN AC 100-10 MG/5ML ORAL SYRUP take 1 tsp po q4-6 h ours prn cough GUAIFENESIN-CODEINE 72890791401 No Longer Active Jayden Hu MD Active ACETAMINOPHEN-CODEINE #3 300-30 MG ORAL TABLET 1 PO Q 4-6 HR PRN PAIN ACETAMINOPHEN-CODEINE 34084027514 No Longer Active Da vid Lyndsay Hu MD Active LORTAB 7.5-500 MG/15ML ORAL ELIXIR 7.5 ml po q 4 hour prn cough HYDROCODONE-ACETAMINOPHEN 65835114100 No Longer Active Carlton Hu MD Active PREDNISONE 20 MG ORAL TABLET 1 po bid 3 days, then 1 po q day 3 days PREDNISONE 88731359265 No Longer Active Carlton Hu MD Active CEFDINIR 300 MG ORAL CAPSULE by mouth twice a day 2011 CEFDINIR 97340028179 No Longer Active Carlton Hu MD Acti ve CEFDINIR 300 MG ORAL CAPSULE by mouth twice a day 2010 CEFDINIR 52828647369 No Longer Active Carlton Hu MD Acti ve CEFDINIR 300 MG ORAL CAPSULE by mouth twice a day 2010 CEFDINIR 80336654840 No Longer Active Carlton Hu MD Acti ve TESSALON PERLES 100 MG ORAL CAPSULE 1 tablet by mouth 3 times daily as needed for cough BENZONATATE 77080167365 No Longer Active Carlton Hu MD Active CEFDINIR 300 MG ORAL CAPSULE by mouth twice a day 2010 CEFDINIR 97462998594 No Longer Active Carlton Hu MD Acti ve ZITHROMAX Z-REYNA 250 MG ORAL TABLET 2 today, then 1 daily for 4 d ays AZITHROMYCIN 32716344719 No Longer Active Hugo Restrepo MD Active TESSALON PERLES 100 MG ORAL CAPSULE 1 tablet by mouth 3 times daily as needed for cough TESSALON PERLES 100 MG ORAL CAPSULE 00570 7 BENZONATATE Inactive PREDNISONE 20 MG ORAL TABLET 1 po bid 3 days, then 1 po q day 3 days PREDNISONE 20 MG ORAL TABLET 911237 PREDNISONE Greer ctive LORTAB 7.5-500 MG/15ML ORAL [...] cough CHERATUSSIN AC 100-10 MG/5ML ORAL SYRUP 400981 GUAIFENESIN-CODEINE Inactive ACETAMINOPHEN-CODEINE #3 300-30 MG ORAL TABLET 1 tablet po q 4-6 hrs prn pain ACETAMINOPHEN-CODEINE #3 300-30 MG ORAL TABLET ACETAMINOPHEN-CODEINE Inactive HYDROCODONE-ACETAMINOPHEN 5-325 MG ORAL TABLET 1 po q 6hr PRN co ugh HYDROCODONE-ACETAMINOPHEN 5-325 MG ORAL TABLET 794330 HYDROCODONE-ACETAMINOPHEN Inactive AVELOX 400 MG ORAL TABLET 1 tab by mouth daily AVELOX 400 MG ORAL TABLET 543391 MOXIFLOXACIN HCL Inactive CHERATUSSIN AC 100-10 MG/5ML ORAL SYRUP 1 tsp by mouth every 4 hours as needed for cough CHERATUSSIN AC 100-10 MG/5ML ORAL SYRUP 9 43324 GUAIFENESIN-CODEINE Inactive TERBINAFINE HCL 250 MG ORAL TABLET 1 qDay 07/08 TERBINAFINE HCL 250 MG ORAL TABLET 225785 TERBINAFINE HCL Inactive CHERATUSSIN AC 100-10 MG/5ML ORAL SYRUP 1 tsp by mouth every 4 hours as needed for cough CHERATUSSIN AC 100-10 MG/5ML ORAL SYRUP 9 43078 GUAIFENESIN-CODEINE Inactive ACETAMINOPHEN-CODEINE #3 300-30 MG ORAL TABLET 1 PO Q 4-6 HRS NC N PAIN ACETAMINOPHEN-CODEINE #3 300-30 MG ORAL TABLET ACETAMINOPHEN-CODEINE Inactive CHERATUSSIN AC 100-10 MG/5ML ORAL SYRUP 1 tsp by mouth every 4 hours as needed for cough CHERATUSSIN AC 100-10 MG/5ML ORAL SYRUP 9 00682 GUAIFENESIN-CODEINE Inactive AUGMENTIN 875-125 MG ORAL TABLET 1 tab by mouth twice daily with food AUGMENTIN 875-125 MG ORAL TABLET 886537 AMOXICIL MADELINE-POT CLAVULANATE Inactive CHERATUSSIN AC 100-10 MG/5ML ORAL SYRUP take one tsp po Q 6h ours prn cough CHERATUSSIN AC 100-10 MG/5ML ORAL SYRUP 685329 GUAIFENESIN-CODEINE Inactive PROPRANOLOL HCL 60 MG ORAL TABLET 1 PO Q D PROPRANOLOL HCL 60 MG ORAL TABLET 303798 PROPRANOLOL HCL Inactive TOPAMAX 50 MG ORAL TABLET take 1 tab po BID for migraines. 07/02 TOPAMAX 50 MG ORAL TABLET 928589 TOPIRAMATE Inacti ve TOPAMAX 25 MG ORAL TABLET 1 qHS x 1 week, then 1 BID x 1 week, then 1 qAM and 2 qHS x 1 week, then 2 BID (migraine prevention) TOPAMAX 25 MG ORAL TABLET 422830 TOPIRAMATE Inactive LYRICA 75 MG ORAL CAPSULE TAKE 1 CAPSULE BY MOUTH TWICE DAILY LYRICA 75 MG ORAL CAPSULE PREGABALIN Inactive SYMBICORT 160-4.5 MCG/ACT INHALATION AEROSOL 2 puffs bid wit h rinse after SYMBICORT 160-4.5 MCG/ACT INHALATION AEROSOL BUDESONIDE- FORMOTEROL FUMARATE Inactive PROMETHAZINE-CODEINE 6.25-10 MG/5ML ORAL SYRUP 1 tsp b y mouth every 8 hours prn cough PROMETHAZINE-CODEINE 6.25-10 MG/ 5ML ORAL SYRUP 141204 PROMETHAZINE-CODEINE Inactive CYMBALTA 30 MG ORAL CAPSULE DELAYED RELEASE PARTICLES 1 cap by mouth daily CYMBALTA 30 MG ORAL CAPSULE DELAYED RELE ASE PARTICLES 861643 DULOXETINE HCL Inactive PREMARIN 0.625 MG ORAL TABLET TAKE 1 TAB BY MOUTH DAILY PREMARIN 0.625 MG ORAL TABLET ESTROGENS CONJUGATED Inactive CHERATUSSIN AC 100-10 MG/5ML ORAL SYRUP 1 tsp by mouth every 4 hours as needed for cough CHERATUSSIN AC 100-10 MG/5ML ORAL SYRUP 9 26464 GUAIFENESIN-CODEINE Inactive PROMETHAZINE-CODEINE 6.25-10 MG/5ML ORAL SYRUP 1 tsp b y mouth every 6 hours if needed for cough PROMETHAZINE-CODEINE 6.25-10 MG/5ML ORAL SYRUP 243272 PROMETHAZINE-CODEINE Inactive CHERATUSSIN AC 100-10 MG/5ML ORAL SYRUP 1 tsp by mouth every 4 hours as needed for cough CHERATUSSIN AC 100-10 MG/5ML ORAL SYRUP 9 76526 GUAIFENESIN-CODEINE Inactive FLUTICASONE PROPIONATE 50 MCG/ACT NASAL SUSPENSION 1 t o 2 sprays each nostril daily FLUTICASONE PROPIONATE 50 MCG/AC T NASAL SUSPENSION 3399451 FLUTICASONE PROPIONATE Inactive PREDNISONE 20 MG ORAL TABLET 3 tab PO qd x 2d, 2 tab P O qd x 2d, 1 tab PO qd x 2d, 1/2 tab PO qd x 2d PREDNISONE 20 MG ORAL TAB LET 675374 PREDNISONE Inactive LEVOFLOXACIN 500 MG ORAL TABLET 1 tab PO daily x 10 days LEVOFLOXACIN 500 MG ORAL TABLET 312380 LEVOFLOXACIN Inactive CYCLOBENZAPRINE HCL 10 MG ORAL TABLET 1 tablet by mouth BID prn had pain CYCLOBENZAPRINE HCL 10 MG ORAL TABLET 536525 CYCLOBENZAPRINE HCL Inactive ZOCOR 40 MG ORAL TABLET 1 tab by mouth daily 4 ZOCOR 40 MG ORAL TABLET 251594 SIMVASTATIN Inactive TUSSIONEX PENNKINETIC ER 10-8 MG/5ML [...] FLUTICASONE PROPIO EFE 50 MCG/ACT NASAL SUSPENSION 2065904 FLUTICASONE PROPIONATE Inactive TUSSIONEX PENNKINETIC ER 10-8 [...] three days PREDNISONE 20 MG ORAL TABLET 588100 PREDNIS ONE Inactive PROAIR HFA 108 (90 BASE) MCG/ACT INHALATION AEROSOL SO LUTION 2 puffs four times a day as needed PROAIR HFA 108 (90 B ASE) MCG/ACT INHALATION AEROSOL SOLUTION ALBUTEROL SULFATE Inactive ZITHROMAX Z-REYNA 250 MG ORAL TABLET 2 today, then 1 daily for 4 d ays ZITHROMAX Z-REYNA 250 MG ORAL TABLET 271722 AZITHROMYCIN Inactive CEFDINIR 300 MG ORAL CAPSULE by mouth twice a day 2010 CEFDINIR 300 MG ORAL CAPSULE 850087 CEFDINIR Inactive CEFDINIR 300 MG ORAL CAPSULE by mouth twice a day 2010 CEFDINIR 300 MG ORAL CAPSULE 700697 CEFDINIR Inactive CEFDINIR 300 MG ORAL CAPSULE by mouth twice a day 2010 CEFDINIR 300 MG ORAL CAPSULE 256449 CEFDINIR Inactive CEFDINIR 300 MG ORAL CAPSULE by mouth twice a day 2011 CEFDINIR 300 MG ORAL CAPSULE 473750 CEFDINIR Inactive ZITHROMAX 250 MG ORAL TABLET 2 po today, then 1 po q days 2-5 20 03/07/07 ZITHROMAX 250 MG ORAL TABLET 386967 AZITHROMYCIN [place] ctive CEFDINIR 300 MG ORAL CAPSULE by mouth twice a day 2011 CEFDINIR 300 MG ORAL CAPSULE 414231 CEFDINIR Inactive PREDNISONE 20 MG ORAL TABLET 2 tabs daily for 3 days, 1 tab daily for 3 days, 1/2 tab daily for 2 days PREDNISONE 20 MG ORAL T ABLET 950476 PREDNISONE Inactive AVELOX 400 MG ORAL TABLET 1 tab by mouth daily AVELOX 400 MG ORAL TABLET 144642 MOXIFLOXACIN HCL Inactive AVELOX 400 MG ORAL TABLET 1 tab by mouth daily AVELOX 400 MG ORAL TABLET 520934 MOXIFLOXACIN HCL Inactive PREDNISONE 20 MG ORAL TABLET Take 3 tabs daily for 3 d ays, 2 tabs daily for 3 days, 1 tab daily for 3 days, 1/2 tab daily for 3 days 11/07 PREDNISONE 20 MG ORAL TABLET 925817 PREDNISONE Inactive LEVAQUIN 500 MG ORAL TABLET take one po QD LEVAQUIN 500 MG ORAL TABLET 198277 LEVOFLOXACIN Inactive AZITHROMYCIN 250 MG ORAL TABLET 2 po qd x 1 day, then 1 po q d x 4 days AZITHROMYCIN 250 MG ORAL TABLET 227505 AZITHROMY GIOVANNI Inactive MEDROL 4 MG ORAL TABLET THERAPY PACK 6 tabs on day 1, 5 tabs on day 2, 4 tabs on day 3, 3 tabs on day 4, 2 tabs on day 5, 1 tab on day 6 2013 MEDROL 4 MG ORAL TABLET THERAPY PACK 880349 METHYLPREDNISOLONE [place] ctive CHERATUSSIN AC 100-10 MG/5ML ORAL SYRUP 5ml po q6hr PRN Cough 20 13/04/14 CHERATUSSIN AC 100-10 MG/5ML ORAL SYRUP 469045 GUAIFENE SIN-CODEINE Inactive TRIAMCINOLONE ACETONIDE 0.1 % EXTERNAL CREAM apply three roger es daily prn rash TRIAMCINOLONE ACETONIDE 0.1 % EXTERNAL CREAM 101 4314 TRIAMCINOLONE ACETONIDE Inactive AZITHROMYCIN 250 MG ORAL TABLET 2 po qd x 1 day, then 1 po q d x 4 days AZITHROMYCIN 250 MG ORAL TABLET 985975 AZITHROMY GIOVANNI Inactive MEDROL 4 MG ORAL TABLET THERAPY PACK 6 pills x 1 day, then 5 pills x 1 day then 4 pills x 1 day, then 3 pills x 1 day, then 2 pills x 1 day, then 1 pill x 1 day, then stop MEDROL 4 MG ORAL TABLET THERAPY PACK 530214 METHYLPREDNISOLONE Inactive AMOXICILLIN 500 MG ORAL CAPSULE 1 tab by mouth 3 times daily x 10 days AMOXICILLIN 500 MG ORAL CAPSULE 601368 AMOXICILL IN Inactive AMOXICILLIN 500 MG ORAL CAPSULE 1 tab by mouth 3 times daily x 10 days AMOXICILLIN 500 MG ORAL CAPSULE 488492 AMOXICILL IN Inactive ZITHROMAX 250 MG ORAL TABLET 2 po today, then 1 po q days 2-5 20 12/08/14 ZITHROMAX 250 MG ORAL TABLET 129590 AZITHROMYCIN [place] ctive AUGMENTIN 875-125 MG ORAL TABLET 1 po BID x 10 days 20 13/01/20 AUGMENTIN 875-125 MG ORAL TABLET 697135 AMOXICILLIN-POT CLAVULANATE Inactive ZITHROMAX Z-REYNA 250 MG ORAL TABLET 2 today, then 1 daily for 4 d ays ZITHROMAX Z-REYNA 250 MG ORAL TABLET 918698 AZITHROMYCIN Inactive ZITHROMAX 250 MG ORAL TABLET 2 po today, then 1 po q days 2-5 20 14/03/21 ZITHROMAX 250 MG ORAL TABLET 499643 AZITHROMYCIN [place] ctive ZITHROMAX Z-REYNA 250 MG ORAL TABLET 2 today, then 1 daily for 4 d ays ZITHROMAX Z-REYNA 250 MG ORAL TABLET 096606 AZITHROMYCIN Inactive CEFDINIR 300 MG ORAL CAPSULE 1 po BID x 10 days 06/21 CEFDINIR 300 MG ORAL CAPSULE 845195 CEFDINIR Inactive ZITHROMAX 250 MG ORAL TABLET 2 po today, then 1 po q days 2-5 20 13/08/10 ZITHROMAX 250 MG ORAL TABLET 739929 AZITHROMYCIN Greer ctive LEVAQUIN 500 MG ORAL TABLET 1 tablet by mouth daily 20 13/09/24 LEVAQUIN 500 MG ORAL TABLET 317866 LEVOFLOXACIN Inactive SINGULAIR 10 MG ORAL TABLET 1 po qday for allergies 20 14/01/12 SINGULAIR 10 MG ORAL TABLET 223024 MONTELUKAST SODIUM Inactive AMOXICILLIN 500 MG ORAL CAPSULE 2 po BID x 10 days 201 09/29/08 AMOXICILLIN 500 MG ORAL CAPSULE 761165 AMOXICILLIN Inactive PREDNISONE 20 MG ORAL TABLET 2 tabs daily for 3 days, 1 tab daily for 3 days, 1/2 tab daily for 2 days PREDNISONE 20 MG ORAL T ABLET 704930 PREDNISONE Inactive ZITHROMAX Z-REYNA 250 MG ORAL TABLET 2 today, then 1 daily for 4 d ays ZITHROMAX Z-REYNA 250 MG ORAL TABLET 030952 AZITHROMYCIN Inactive PREDNISONE 20 MG ORAL TABLET 2 tabs daily for 3 days, 1 tab daily for 3 days, 1/2 tab daily for 2 days PREDNISONE 20 MG ORAL T ABLET 088080 PREDNISONE Inactive ZITHROMAX 250 MG ORAL TABLET 2 po today, then 1 po q days 2-5 20 14/09/04 ZITHROMAX 250 MG ORAL TABLET 154502 AZITHROMYCIN [facility] AMOXICILLIN 500 MG ORAL CAPSULE 1 cap by mouth three times a day AMOXICILLIN 500 MG ORAL CAPSULE 860588 AMOXICILLIN Inactive TERBINAFINE HCL 250 MG ORAL TABLET 1 qDay for nail fungus 7 TERBINAFINE HCL 250 MG ORAL TABLET 482474 TERBINAFINE HCL Inact nael AUGMENTIN 875-125 MG ORAL TABLET 1 po BID x 10 days 16/03/22 AUGMENTIN 875-125 MG ORAL TABLET 138766 AMOXICILLIN-POT CLAVULANATE Inactive PREDNISONE 20 MG ORAL TABLET 2 po qd x 5 days PREDNISONE 20 MG ORAL TABLET 839004 PREDNISONE Inactive AZITHROMYCIN 250 MG ORAL TABLET 2 po qd x 1 day, then 1 po q d x 4 days AZITHROMYCIN 250 MG ORAL TABLET 424857 AZITHROMY GIOVANNI Inactive Vital Signs Date Name Value Unit Range Description blood pressure, diastolic 76 mm[Hg] BP srinivasan [...] - Chem istry sodium, serum 139 mmol/L 927-703 7677/03/19 potassium, serum 3.6 mmol/L 3.5-5.2 chloride, serum 100 mmol/L 98-107 carbon dioxide, venous blood 30.3 mmol/L 21.0-32 .0 blood glucose 101 mg/dL 65-110 calcium, serum 9.4 mg/dL 8.5-10.1 urea nitrogen, blood 10 mg/dL 7-18 creatinine, serum 0.96 mg/dL 0.60-1.30 sodium, serum 139 mmol/L 332-036 9665/10/12 potassium, serum 3.8 mmol/L 3.5-5.2 chloride, serum 102 mmol/L 98-107 carbon dioxide, venous blood 29.4 mmol/L 21.0-32 .0 blood glucose 103 mg/dL 65-95 calcium, serum 8.8 mg/dL 8.5-10.1 urea nitrogen, blood 10 mg/dL 7-18 creatinine, serum 0.97 mg/dL 0.60-1.30 Estimated Glomerular Filtration Rate (calc) 62 (?) mL/min/1.73m2 = OR > 60 mL/min Encounters Code Encounter Date Provider Facility CPT-03461 [id number] Vst-Est Level III 11:12:16 CDT Yanet Bess DO [facility] CPT-35940 Level 3 Est. Patient 11:34:49 CONTINUOUS PROCESS MACHINE OPERATOR Perez Mora MD [facility] CPT-19291 Level 4 Est. Patient 09:51:32 CONTINUOUS PROCESS MACHINE OPERATOR Carlton rich MD [facility] CPT-91815 Level 3 Est. Patient 10:26:00 CONTINUOUS PROCESS MACHINE OPERATOR Elise stephenson [facility] CPT-99818 Level 3 Est. Patient 13:35:41 CONTINUOUS PROCESS MACHINE OPERATOR Carlton rich MD [facility] CPT-01229 Level 3 Est. Patient 10:03:52 CONTINUOUS PROCESS MACHINE OPERATOR Carlton rich MD [facility] CPT-81315 Level 3 Est. Patient 12:17:50 CDT Hugo Restrepo MD [facility] CPT-27848 Level 3 Est. Patient 13:42:38 CDT Elise stephenson [facility] CPT-63651 Level 3 Est. Patient 13:23:51 CDT Diya cobian [facility] CPT-40990 Level 3 Est. Patient 14:22:19 CONTINUOUS PROCESS MACHINE OPERATOR iDya cobian [facility] CPT-20012 Level 3 Est. Patient 10:11:46 CDT Carlton rich MD [facility] CPT-65880 Level 3 Est. Patient 17:29:43 CDT Elise Are ll BOAT MASTER [facility] CPT-62821 Level 3 Est. Patient 11:58:06 CDT Elise Are ll [facility] CPT-64234 Level 4 Est. Patient 14:36:51 CDT Carlton rich MD [facility] CPT-22702 Level 3 Est. Patient 18:16:00 CONTINUOUS PROCESS MACHINE OPERATOR Blaine Freeman [facility] CPT-69306 Level 3 Est. Patient 09:45:49 CONTINUOUS PROCESS MACHINE OPERATOR Carlton rich MD [facility] CPT-77594 Level 3 Est. Patient 13:19:20 CDT Carlton rich MD [facility] CPT-50722 Level 3 Est. Patient 13:06:43 CDT Ridge tam DO [facility] CPT-86098 Level 3 Est. Patient 10:03:07 CDT Perez Mora MD [facility] CPT-50303 Level 3 Est. Patient 19:50:35 CONTINUOUS PROCESS MACHINE OPERATOR Carlton rich MD [facility] CPT-02411 Level 4 Est. Patient 18:05:01 CONTINUOUS PROCESS MACHINE OPERATOR Carlton rich MD [facility] CPT-50374 Level 3 Est. Patient 10:45:55 CONTINUOUS PROCESS MACHINE OPERATOR Hugo Restrepo MD [facility] CPT-42064 Level 3 Est. Patient 14:12:49 CDT [facility] CPT-51739 Level 3 Est. Patient 17:37:24 CDT Carlton rich MD [facility] CPT-67977 Level 3 Est. Patient 16:51:54 CDT Carlton rich MD [facility] CPT-01477 Level 3 Est. Patient 12:18:11 CDT Hugo Restrepo MD [facility] CPT-20069 Level 3 Est. Patient 11:30:25 CDT Marcy crisostomo MD PhD [facility] CPT-92872 Level 3 Est. Patient 12:00:47 CONTINUOUS PROCESS MACHINE OPERATOR Carlton rich MD [facility] CPT-98653 Level 3 Est. Patient 16:31:06 CONTINUOUS PROCESS MACHINE OPERATOR Carlton rich MD [facility] CPT-36005 Level 3 Est. Patient 16:23:24 CONTINUOUS PROCESS MACHINE OPERATOR Ridge tam [facility] CPT-41069 Level 3 Est. Patient 12:34:12 CDT Carlton rich MD [facility] CPT-68061 Level 2 Est. Patient 15:43:33 CDT Robi armstrong MD [facility] CPT-46303 Level 4 Est. Patient 14:04:44 CDT Carlton rich MD [facility] CPT-33193 Level 3 Est. Patient 05:47:59 CDT Ridge tam [facility] CPT-31311 Level 3 Est. Patient 13:12:53 CONTINUOUS PROCESS MACHINE OPERATOR Carlton rich MD [facility] CPT-33033 Level 3 Est. Patient 14:26:53 CDT Hugo Restrepo MD [facility] Procedures Code Procedure Name Date Entry Date Standard Desc ription CPT-000 Give Appropriate Flu Vaccine 14:14:31 CDT 2 CPT-J1040 Depo Medrol 80 mg (Methyl Prednisolone A cetate) 10:42:44 CDT CPT-J1100 Decadron 8mg (Dexamethasone) 10:42:44 CDT 2 CPT-J0696 Rocephin 1gm Inj Solr 14:32:13 CDT CPT-J1020 Depo Medrol 60 mg (Methyl Prednisolone A cetate) 14:32:13 CDT CPT-J1100 Decadron 6mg (Dexamethasone) 14:32:13 CDT 2 CPT-81509 Hip bilat min 2V w AP pelvis 13:16:20 CDT 2 CPT-67019 Pelvis only 13:07:33 CDT CPT-68488 Spec Collection and Handling Fee 11:25:12 C DT CPT-22150 Fluzone Quadrivalent Intramuscular Suspe nsion 0.5 ML 14:31:55 CDT CPT-51357 Abx/Therapy Injection 13:28:47 CONTINUOUS PROCESS MACHINE OPERATOR CPT-J2930 Solu Medrol 125 mg (Methyl Prednisolone Sodium Succinate) 12:00:47 CONTINUOUS PROCESS MACHINE OPERATOR CPT-31963 Venipuncture Draw Fee 11:33:31 CDT CPT-94045 EKG Trac and Interp 11:21:09 CDT CPT-75417 Chest 2V Frontal and Lat 11:21:09 CDT 12/15 CPT-47838 Venipuncture Draw Fee 08:02:34 CDT CPT-94377 Chest 2V Frontal and Lat 05:47:59 CDT 06/05
--- OUTSIDE RECORDS SUMMARY | 2019-10-08 09:22 | XMS REPORT | Clinical Summary ---
Author Author Caitlin, Juliana Martinez Organization [facility] Address Unknown Phone Unavailable Allergies, [...] po q12hr PRN Cough HYDROCOD POLST-CHLORPHEN POLST [id number] Active David Marianne RESEARCH CLERK Active AUGMENTIN 875-125 MG ORAL TABLET 1 po BID x 10 days 18/04/16 AMOXICILLIN-POT CLAVULANATE 27945186292 Active David Marianne RESEARCH CLERK Active PREDNISONE 50 MG ORAL TABLET Take 50 mg dialy for 6 day s 7 PREDNISONE 67043773875 Active David Marianne RESEARCH CLERK Active TUSSIONEX PENNKINETIC ER 10-8 MG/5ML ORAL SUSPENSION E XTENDED RELEASE 5ml po q12hr PRN Cough HYDROCOD POLST-CHLORPHEN POLST 5 0896715583 No Longer Active Cherelle Torres RN Active PREDNISONE 20 MG ORAL TABLET two tabs by mouth today, then one tab by mouth days two and three and four PREDNISONE 29316535569 No Lo nger Active Cherelle Torres RN Active AZITHROMYCIN 250 MG ORAL TABLET 2 po qd x 1 day, then 1 po q d x 4 days AZITHROMYCIN 25513190305 No Longer Active Ridge Bess DO Active PREDNISONE 20 MG ORAL TABLET 2 po qd x 5 days P REDNISONE 41523969899 No Longer Active Perez Mora MD Active PROAIR HFA 108 (90 BASE) MCG/ACT INHALATION AEROSOL SO LUTION 2 puffs four times a day as needed ALBUTEROL SULFATE 26204613012 No Long er Active Becky FUENTES Active ASPIRIN 81 MG ORAL TABLET 1 po qd ASPIRIN 00547984304 Active Carlton Hu MD Active PREDNISONE 20 MG ORAL TABLET 1 tab twice daily for 3 d ay, then one daily for three days PREDNISONE 14756975289 No Longer Active Carlton Hu MD Active AUGMENTIN 875-125 MG ORAL TABLET 1 po BID x 10 days 16/03/22 AMOXICILLIN-POT CLAVULANATE 33495496460 No Longer Active Elise Garcia APRN Active TERBINAFINE HCL 250 MG ORAL TABLET 1 qDay for nail fungus 7 TERBINAFINE HCL 01884634839 No Longer Active Carlton Hu MD A ctive AMOXICILLIN 500 MG ORAL CAPSULE 1 cap by mouth three times a day AMOXICILLIN 59408919718 No Longer Active Carlton Hu MD Active ELMIRON 100 MG ORAL CAPSULE 2 tablets in the am and 1 tablet at hs PENTOSAN POLYSULFATE SODIUM 30047098990 No Longer Active Robert Hu MD Active MUCINEX D 60-600 MG ORAL TABLET EXTENDED RELEASE 12 HOUR 1 t ab po q am PSEUDOEPHEDRINE-GUAIFENESIN 72878611085 No Longer Act nael Carlton Hu MD Active MUCINEX DM MAXIMUM STRENGTH 60-1200 MG ORAL TABLET EXT ENDED RELEASE 12 HOUR 1 tab po q am DEXTROMETHORPHAN-GUAIFENESIN 66644714848 No Longer Active Carlton Hu MD Active TUSSIONEX PENNKINETIC ER 10-8 MG/5ML ORAL SUSPENSION E XTENDED RELEASE 5ml po q12hr PRN Cough HYDROCOD POLST-CHLORPHEN POLST 5 7548767157 No Longer Active Carlton Hu MD Active POTASSIUM CHLORIDE ER 20 MEQ ORAL TABLET EXTENDED RELE ASE Take 1 by mouth 4 times daily for 7 days POTASSIUM CHLORIDE 15277144696 No Longer Active Carlton Hu MD Active ZITHROMAX 250 MG ORAL TABLET 2 po today, then 1 po q days 2-5 20 14/09/04 AZITHROMYCIN 76009181996 No Longer Active Elise Garcia APRN Active TUSSIONEX PENNKINETIC ER 10-8 MG/5ML ORAL SUSPENSION E XTENDED RELEASE 5 ml twice a day as needed for cough HYDROCOD POLST-CHLORPH EN POLST 53801046100 No Longer Active Elise Garcia APRN Active MONTELUKAST SODIUM 10 MG ORAL TABLET 1 po daily for Allergy MONTELUKAST SODIUM 16676211377 Active Carlton Hu MD Ac tive TUSSIONEX PENNKINETIC ER 10-8 MG/5ML ORAL SUSPENSION E XTENDED RELEASE 5ml po q12hr PRN Cough HYDROCOD POLST-CHLORPHEN POLST 5 7683640511 No Longer Active Hugo Restrepo MD Active GABAPENTIN 100 MG ORAL CAPSULE 1 po BID for fibromyalgia GABAPENTIN 08526061866 Active Carlton Hu MD Active LYRICA 100 MG ORAL CAPSULE Take 1 tab po BID for fibromyalgia 20 11/08/21 PREGABALIN 56494026360 No Longer Active Elise Garcia APRN A ctive PREDNISONE 20 MG ORAL TABLET 2 tabs daily for 3 days, 1 tab daily for 3 days, 1/2 tab daily for 2 days PREDNISONE 15133987991 No Longer Active Diya De Guzman APRN Active TUSSIONEX PENNKINETIC ER 10-8 MG/5ML ORAL SUSPENSION E XTENDED RELEASE 5 mL PO q 12 hrs PRN cough HYDROCOD POLST-CHLORPHEN POLST 173555 27783 No Longer Active Jillina Frazell BILL Active FLUTICASONE PROPIONATE 50 MCG/ACT NASAL SUSPENSION 2 s prays each nostril daily until bottle is empty FLUTICASONE PROPIONATE 800980254 99 No Longer Active Jillina Frazell RESEARCH CLERK Active ASMANEX 60 METERED DOSES 220 MCG/INH INHALATION AEROSO L POWDER BREATH ACTIVATED 1 puff bid with rinse after MOMETASONE FUROATE 6142102 4102 No Longer Active Diya De Guzman APRN Active ZITHROMAX Z-REYNA 250 MG ORAL TABLET 2 today, then 1 daily for 4 d ays AZITHROMYCIN 20703591377 No Longer Active Elise Garcia APRN Active TUSSIONEX PENNKINETIC ER 10-8 MG/5ML ORAL SUSPENSION E XTENDED RELEASE 5ml po q12hr PRN Cough HYDROCOD POLST-CHLORPHEN POLST 5 8915296116 No Longer Active Elise Garcia APRN Active PREDNISONE 20 MG ORAL TABLET 2 tabs daily for 3 days, 1 tab daily for 3 days, 1/2 tab daily for 2 days PREDNISONE 09194485803 No Longer Active Diya De Guzman APRN Active AMOXICILLIN 500 MG ORAL CAPSULE 2 po BID x 10 days 201 09/29/08 AMOXICILLIN 97672612431 No Longer Active Diya De Guzman APRN Act nael SINGULAIR 10 MG ORAL TABLET 1 po qday for allergies 20 14/01/12 MONTELUKAST SODIUM 90258120101 No Longer Active Carlton Hu MD Active LEVAQUIN 500 MG ORAL TABLET 1 tablet by mouth daily 20 13/09/24 LEVOFLOXACIN 63041789082 No Longer Active Carlton Hu MD Acti ve FLUTICASONE PROPIONATE 50 MCG/ACT NASAL SUSPENSION 2 s prays each nostril daily for 2 weeks, then 1 spray each nostril daily. FLUTICASONE PROPIONATE 69505134949 Active ALFREDO Holly Active ZITHROMAX 250 MG ORAL TABLET 2 po today, then 1 po q days 2-5 20 13/08/10 AZITHROMYCIN 99263480973 No Longer Active Elise Garcia APRN Active XANAX 0.5 MG ORAL TABLET one tablet by mouth daily prn anxiety 2015 ALPRAZOLAM 69593708601 Active ALFREDO Holly Active CYMBALTA 30 MG ORAL CAPSULE DELAYED RELEASE PARTICLES 1 cap by mouth daily for depression DULOXETINE HCL 88131285020 Active Maria Luisa Sanabria, RMA Active CEFDINIR 300 MG ORAL CAPSULE 1 po BID x 10 days CEFDINIR 27916424387 No Longer Active Carlton Hu MD Active ZOCOR 40 MG ORAL TABLET 1 tab by mouth daily SI MVASTATIN 58971033909 No Longer Active Carlton Hu MD Active CYCLOBENZAPRINE HCL 10 MG ORAL TABLET 1 tablet by mouth BID prn had pain CYCLOBENZAPRINE HCL 30804136723 No Longer Active Jayden Hu MD Active LEVOFLOXACIN 500 MG ORAL TABLET 1 tab PO daily x 10 days LEVOFLOXACIN 27562312073 No Longer Active Carlton Hu MD Acti ve PREDNISONE 20 MG ORAL TABLET 3 tab PO qd x 2d, 2 tab P O qd x 2d, 1 tab PO qd x 2d, 1/2 tab PO qd x 2d PREDNISONE 12820426863 No Lo nger Active Carlton Hu MD Active FLUTICASONE PROPIONATE 50 MCG/ACT NASAL SUSPENSION 1 t o 2 sprays each nostril daily FLUTICASONE PROPIONATE 25623449864 No Longer Ac tive Blaine HERNANDEZ Active CHERATUSSIN AC 100-10 MG/5ML ORAL SYRUP 1 tsp by mouth every 4 hours as needed for cough GUAIFENESIN-CODEINE 78036971328 No Longe r Active Blaine HERNANDEZ Active PROMETHAZINE-CODEINE 6.25-10 MG/5ML ORAL SYRUP 1 tsp b y mouth every 6 hours if needed for cough PROMETHAZINE-CODEINE 10265120432 No Longer Active Blaine HERNANDEZ Active CHERATUSSIN AC 100-10 MG/5ML ORAL SYRUP 1 tsp by mouth every 4 hours as needed for cough GUAIFENESIN-CODEINE 37161259200 No Longe r Active Blaine HERNANDEZ Active ZITHROMAX Z-REYNA 250 MG ORAL TABLET 2 today, then 1 daily for 4 d ays AZITHROMYCIN 13390530016 No Longer Active Columba Raida Act nael ZITHROMAX 250 MG ORAL TABLET 2 po today, then 1 po q days 2-5 20 14/03/21 AZITHROMYCIN 65074081386 No Longer Active Carlton Hu MD Active ZITHROMAX Z-REYNA 250 MG ORAL TABLET 2 today, then 1 daily for 4 d ays AZITHROMYCIN 78397958229 No Longer Active Columba Raida Act nael AUGMENTIN 875-125 MG ORAL TABLET 1 po BID x 10 days 13/01/20 AMOXICILLIN-POT CLAVULANATE 64223858117 No Longer Active Diya De Guzman RESEARCH CLERK Active ZITHROMAX 250 MG ORAL TABLET 2 po today, then 1 po q days 2-5 12/08/14 AZITHROMYCIN 91685028327 No Longer Active Carlton Hu MD Active TRAMADOL HCL 50 MG ORAL TABLET 1 po tid with ES Tylenol TRAMADOL HCL 75020088137 Active Adrienne Galvez PERIANESTHESIA MANAGER Active PREMARIN 0.625 MG ORAL TABLET TAKE 1 TAB BY MOUTH DAILY ESTROGENS CONJUGATED 25516431520 No Longer Active Ridge Bess DO A ctive CYMBALTA 30 MG ORAL CAPSULE DELAYED RELEASE PARTICLES 1 cap by mouth daily DULOXETINE HCL 93189312370 No Longer Active Ridge Ya ee DO Active AMOXICILLIN 500 MG ORAL CAPSULE 1 tab by mouth 3 times daily x 10 days AMOXICILLIN 87048576173 No Longer Active Carlton bustamante MD Active AMOXICILLIN 500 MG ORAL CAPSULE 1 tab by mouth 3 times daily x 10 days AMOXICILLIN 03106894261 No Longer Active Carlton bustamante MD Active PROMETHAZINE-CODEINE 6.25-10 MG/5ML ORAL SYRUP 1 tsp b y mouth every 8 hours prn cough PROMETHAZINE-CODEINE 46327721607 No Longer Acti ve Carlton Hu MD Active MEDROL 4 MG ORAL TABLET THERAPY PACK 6 pills x 1 day, then 5 pills x 1 day then 4 pills x 1 day, then 3 pills x 1 day, then 2 pills x 1 day, then 1 pill x 1 day, then stop METHYLPREDNISOLONE 43194421492 No Long er Active Perez Mora MD Active AZITHROMYCIN 250 MG ORAL TABLET 2 po qd x 1 day, then 1 po q d x 4 days AZITHROMYCIN 27952454848 No Longer Active Perez Ambriz MD Active SYMBICORT 160-4.5 MCG/ACT INHALATION AEROSOL 2 puffs bid wit h rinse after BUDESONIDE-FORMOTEROL FUMARATE 37504620702 N o Longer Active Perez Mora MD Active LYRICA 75 MG ORAL CAPSULE TAKE 1 CAPSULE BY MOUTH TWICE DAILY PREGABALIN 31569284405 No Longer Active Carlton Hu MD Acti ve TOPAMAX 25 MG ORAL TABLET 1 qHS x 1 week, then 1 BID x 1 week, then 1 qAM and 2 qHS x 1 week, then 2 BID (migraine prevention) T OPIRAMATE 10998438512 No Longer Active Jerica FUENTES Active TOPAMAX 50 MG ORAL TABLET take 1 tab po BID for migraines. 07/02 TOPIRAMATE 91784710580 No Longer Active Jerica FUENTES Active TOPAMAX 100 MG ORAL TABLET Take 1 tablet po bid TO PIRAMATE 56028063272 Active ALFREDO Holly Active TRIAMCINOLONE ACETONIDE 0.1 % EXTERNAL CREAM apply three roger es daily prn rash TRIAMCINOLONE ACETONIDE 93974921370 No Longer Active Carlton Hu MD Active PAXIL 40 MG ORAL TABLET take 1 tab po qday for depression 0 PAROXETINE HCL 68549419125 Active ALFREDO Holly Active CHERATUSSIN AC 100-10 MG/5ML ORAL SYRUP 5ml po q6hr PRN Cough 20 13/04/14 GUAIFENESIN-CODEINE 14583536324 No Longer Active Carlton Hu MD Active MEDROL 4 MG ORAL TABLET THERAPY PACK 6 tabs on day 1, 5 tabs on day 2, 4 tabs on day 3, 3 tabs on day 4, 2 tabs on day 5, 1 tab on day 6 2013 METHYLPREDNISOLONE 50436106056 No Longer Active Perez Mora MD Active AZITHROMYCIN 250 MG ORAL TABLET 2 po qd x 1 day, then 1 po q d x 4 days AZITHROMYCIN 10907774968 No Longer Active Perez Ambriz MD Active PROPRANOLOL HCL 60 MG ORAL TABLET 1 PO Q D PROPRANOLOL HCL 29500298099 No Longer Active Perez Mora MD Activ e CHERATUSSIN AC 100-10 MG/5ML ORAL SYRUP take one tsp po Q 6h ours prn cough GUAIFENESIN-CODEINE 41568488092 No Longer Active Zia Mora MD Active AUGMENTIN 875-125 MG ORAL TABLET 1 tab by mouth twice daily with food AMOXICILLIN-POT CLAVULANATE 43003641908 No Longer Act nael Perez oMra MD Active CHERATUSSIN AC 100-10 MG/5ML ORAL SYRUP 1 tsp by mouth every 4 hours as needed for cough GUAIFENESIN-CODEINE 54443189122 No Longe r Active Hugo Restrepo MD Active ACETAMINOPHEN-CODEINE #3 300-30 MG ORAL TABLET 1 PO Q 4-6 HRS NM N PAIN ACETAMINOPHEN-CODEINE 84206794639 No Longer Active Hugo Restrepo MD Active LEVAQUIN 500 MG ORAL TABLET take one po QD LEVO FLOXACIN 42726711134 No Longer Active Griffin HERNANDEZ Active PREDNISONE 20 MG ORAL TABLET Take 3 tabs daily for 3 d ays, 2 tabs daily for 3 days, 1 tab daily for 3 days, 1/2 tab daily for 3 days 11/07 PREDNISONE 95667753014 No Longer Active Carlton Hu MD Acti ve AVELOX 400 MG ORAL TABLET 1 tab by mouth daily MOXIFLOXACIN HCL 62698703096 No Longer Active Carlton Hu MD Active CHERATUSSIN AC 100-10 MG/5ML ORAL SYRUP 1 tsp by mouth every 4 hours as needed for cough GUAIFENESIN-CODEINE 49229830582 No Longe r Active Hugo Restrepo MD Active AVELOX 400 MG ORAL TABLET 1 tab by mouth daily MOXIFLOXACIN HCL 53624836419 No Longer Active Marcy De La Rosa MD PhD Active TERBINAFINE HCL 250 MG ORAL TABLET 1 qDay T ERBINAFINE HCL 13211493380 No Longer Active Marcy De La Rosa MD PhD Active CHERATUSSIN AC 100-10 MG/5ML ORAL SYRUP 1 tsp by mouth every 4 hours as needed for cough GUAIFENESIN-CODEINE 14008872869 No Longe r Active Marcy De La Rosa MD PhD Active AVELOX 400 MG ORAL TABLET 1 tab by mouth daily MOXIFLOXACIN HCL 83470072929 No Longer Active Marcy De La Rosa MD PhD Active HYDROCODONE-ACETAMINOPHEN 5-325 MG ORAL TABLET 1 po q 6hr PRN co ugh HYDROCODONE-ACETAMINOPHEN 39102595114 No Longer Active Marcy De La Rosa MD PhD Active PREDNISONE 20 MG ORAL TABLET 2 tabs daily for 3 days, 1 tab daily for 3 days, 1/2 tab daily for 2 days PREDNISONE 71966058855 No Longer Active Carlton Hu MD Active CEFDINIR 300 MG ORAL CAPSULE by mouth twice a day 2011 CEFDINIR 29153146139 No Longer Active Carlton Hu MD Acti ve HYDROCHLOROTHIAZIDE 25 MG ORAL TABLET 1 TAB PO DAILY HYDROCHLOROTHIAZIDE 31280660529 Active Adrienne Galvez PERIANESTHESIA MANAGER Active ACETAMINOPHEN-CODEINE #3 300-30 MG ORAL TABLET 1 tablet po q 4-6 hrs prn pain ACETAMINOPHEN-CODEINE 83465809725 No Longer Active Ridge Bess DO Active ZITHROMAX 250 MG ORAL TABLET 2 po today, then 1 po q days 2-5 20 03/07/07 AZITHROMYCIN 62583291338 No Longer Active Carlton Hu MD Active CHERATUSSIN AC 100-10 MG/5ML ORAL SYRUP take 1 tsp po q4-6 h ours prn cough GUAIFENESIN-CODEINE 25227119468 No Longer Active Jayden Hu MD Active ACETAMINOPHEN-CODEINE #3 300-30 MG ORAL TABLET 1 PO Q 4-6 HR PRN PAIN ACETAMINOPHEN-CODEINE 36255605946 No Longer Active Arnol Hu MD Active LORTAB 7.5-500 MG/15ML ORAL ELIXIR 7.5 ml po q 4 hour prn cough HYDROCODONE-ACETAMINOPHEN 36575479320 No Longer Active Carlton Hu MD Active PREDNISONE 20 MG ORAL TABLET 1 po bid 3 days, then 1 po q day 3 days PREDNISONE 40247089472 No Longer Active Carlton Hu MD Active CEFDINIR 300 MG ORAL CAPSULE by mouth twice a day 2011 CEFDINIR 80686046132 No Longer Active Carlton Hu MD Acti ve CEFDINIR 300 MG ORAL CAPSULE by mouth twice a day 2010 CEFDINIR 13066279579 No Longer Active Carlton Hu MD Acti ve CEFDINIR 300 MG ORAL CAPSULE by mouth twice a day 2010 CEFDINIR 74457247650 No Longer Active Carlton Hu MD Acti ve TESSALON PERLES 100 MG ORAL CAPSULE 1 tablet by mouth 3 times daily as needed for cough BENZONATATE 48322278338 No Longer Active Carlton Hu MD Active CEFDINIR 300 MG ORAL CAPSULE by mouth twice a day 2010 CEFDINIR 01054717224 No Longer Active Carlton Hu MD Acti ve ZITHROMAX Z-REYNA 250 MG ORAL TABLET 2 today, then 1 daily for 4 d ays AZITHROMYCIN 66180461954 No Longer Active Hugo Restrepo MD Active TESSALON PERLES 100 MG ORAL CAPSULE 1 tablet by mouth 3 times daily as needed for cough ROLFSALBARRON PERLES 100 MG ORAL CAPSULE 37134 7 BENZONATATE Inactive PREDNISONE 20 MG ORAL TABLET 1 po bid 3 days, then 1 po q day 3 days PREDNISONE 20 MG ORAL TABLET 569719 PREDNISONE Greer ctive LORTAB 7.5-500 MG/15ML ORAL [...] cough CHERATUSSIN AC 100-10 MG/5ML ORAL SYRUP 311778 GUAIFENESIN-CODEINE Inactive ACETAMINOPHEN-CODEINE #3 300-30 MG ORAL TABLET 1 tablet po q 4-6 hrs prn pain ACETAMINOPHEN-CODEINE #3 300-30 MG ORAL TABLET ACETAMINOPHEN-CODEINE Inactive HYDROCODONE-ACETAMINOPHEN 5-325 MG ORAL TABLET 1 po q 6hr PRN co ugh HYDROCODONE-ACETAMINOPHEN 5-325 MG ORAL TABLET 347319 HYDROCODONE-ACETAMINOPHEN Inactive AVELOX 400 MG ORAL TABLET 1 tab by mouth daily AVELOX 400 MG ORAL TABLET 360105 MOXIFLOXACIN HCL Inactive CHERATUSSIN AC 100-10 MG/5ML ORAL SYRUP 1 tsp by mouth every 4 hours as needed for cough CHERATUSSIN AC 100-10 MG/5ML ORAL SYRUP 9 46747 GUAIFENESIN-CODEINE Inactive TERBINAFINE HCL 250 MG ORAL TABLET 1 qDay 07/08 TERBINAFINE HCL 250 MG ORAL TABLET 522640 TERBINAFINE HCL Inactive CHERATUSSIN AC 100-10 MG/5ML ORAL SYRUP 1 tsp by mouth every 4 hours as needed for cough CHERATUSSIN AC 100-10 MG/5ML ORAL SYRUP 9 03377 GUAIFENESIN-CODEINE Inactive ACETAMINOPHEN-CODEINE #3 300-30 MG ORAL TABLET 1 PO Q 4-6 HRS NM N PAIN ACETAMINOPHEN-CODEINE #3 300-30 MG ORAL TABLET ACETAMINOPHEN-CODEINE Inactive CHERATUSSIN AC 100-10 MG/5ML ORAL SYRUP 1 tsp by mouth every 4 hours as needed for cough CHERATUSSIN AC 100-10 MG/5ML ORAL SYRUP 9 42324 GUAIFENESIN-CODEINE Inactive AUGMENTIN 875-125 MG ORAL TABLET 1 tab by mouth twice daily with food AUGMENTIN 875-125 MG ORAL TABLET 666512 AMOXICIL MADELINE-POT CLAVULANATE Inactive CHERATUSSIN AC 100-10 MG/5ML ORAL SYRUP take one tsp po Q 6h ours prn cough CHERATUSSIN AC 100-10 MG/5ML ORAL SYRUP 741547 GUAIFENESIN-CODEINE Inactive PROPRANOLOL HCL 60 MG ORAL TABLET 1 PO Q D PROPRANOLOL HCL 60 MG ORAL TABLET 921586 PROPRANOLOL HCL Inactive TOPAMAX 50 MG ORAL TABLET take 1 tab po BID for migraines. 07/02 TOPAMAX 50 MG ORAL TABLET 358773 TOPIRAMATE Inacti ve TOPAMAX 25 MG ORAL TABLET 1 qHS x 1 week, then 1 BID x 1 week, then 1 qAM and 2 qHS x 1 week, then 2 BID (migraine prevention) TOPAMAX 25 MG ORAL TABLET 595191 TOPIRAMATE Inactive LYRICA 75 MG ORAL CAPSULE TAKE 1 CAPSULE BY MOUTH TWICE DAILY LYRICA 75 MG ORAL CAPSULE PREGABALIN Inactive SYMBICORT 160-4.5 MCG/ACT INHALATION AEROSOL 2 puffs bid wit h rinse after SYMBICORT 160-4.5 MCG/ACT INHALATION AEROSOL BUDESONIDE- FORMOTEROL FUMARATE Inactive PROMETHAZINE-CODEINE 6.25-10 MG/5ML ORAL SYRUP 1 tsp b y mouth every 8 hours prn cough PROMETHAZINE-CODEINE 6.25-10 MG/ 5ML ORAL SYRUP 418068 PROMETHAZINE-CODEINE Inactive CYMBALTA 30 MG ORAL CAPSULE DELAYED RELEASE PARTICLES 1 cap by mouth daily CYMBALTA 30 MG ORAL CAPSULE DELAYED RELE ASE PARTICLES 478875 DULOXETINE HCL Inactive PREMARIN 0.625 MG ORAL TABLET TAKE 1 TAB BY MOUTH DAILY PREMARIN 0.625 MG ORAL TABLET ESTROGENS CONJUGATED Inactive CHERATUSSIN AC 100-10 MG/5ML ORAL SYRUP 1 tsp by mouth every 4 hours as needed for cough CHERATUSSIN AC 100-10 MG/5ML ORAL SYRUP 9 46043 GUAIFENESIN-CODEINE Inactive PROMETHAZINE-CODEINE 6.25-10 MG/5ML ORAL SYRUP 1 tsp b y mouth every 6 hours if needed for cough PROMETHAZINE-CODEINE 6.25-10 MG/5ML ORAL SYRUP 617154 PROMETHAZINE-CODEINE Inactive CHERATUSSIN AC 100-10 MG/5ML ORAL SYRUP 1 tsp by mouth every 4 hours as needed for cough CHERATUSSIN AC 100-10 MG/5ML ORAL SYRUP 9 85885 GUAIFENESIN-CODEINE Inactive FLUTICASONE PROPIONATE 50 MCG/ACT NASAL SUSPENSION 1 t o 2 sprays each nostril daily FLUTICASONE PROPIONATE 50 MCG/AC T NASAL SUSPENSION 1636557 FLUTICASONE PROPIONATE Inactive PREDNISONE 20 MG ORAL TABLET 3 tab PO qd x 2d, 2 tab P O qd x 2d, 1 tab PO qd x 2d, 1/2 tab PO qd x 2d PREDNISONE 20 MG ORAL TAB LET 018778 PREDNISONE Inactive LEVOFLOXACIN 500 MG ORAL TABLET 1 tab PO daily x 10 days LEVOFLOXACIN 500 MG ORAL TABLET 751320 LEVOFLOXACIN Inactive CYCLOBENZAPRINE HCL 10 MG ORAL TABLET 1 tablet by mouth BID prn had pain CYCLOBENZAPRINE HCL 10 MG ORAL TABLET 280559 CYCLOBENZAPRINE HCL Inactive ZOCOR 40 MG ORAL [...] FLUTICASONE PROPIO EFE 50 MCG/ACT NASAL SUSPENSION 6390839 FLUTICASONE PROPIONATE Inactive TUSSIONEX PENNKINETIC ER 10-8 [...] three days PREDNISONE 20 MG ORAL TABLET 707290 PREDNIS ONE Inactive PROAIR HFA 108 (90 BASE) MCG/ACT INHALATION AEROSOL SO LUTION 2 puffs four times a day as needed PROAIR HFA 108 (90 B ASE) MCG/ACT INHALATION AEROSOL SOLUTION ALBUTEROL SULFATE Inactive PREDNISONE 20 MG ORAL TABLET two tabs by mouth today, then one tab by mouth days two and three and four PREDNISONE 20 MG ORAL TAB LET 537470 PREDNISONE Inactive TUSSIONEX PENNKINETIC ER 10-8 MG/5ML ORAL SUSPENSION E XTENDED RELEASE 5ml po q12hr PRN Cough TUSSIONEX PENNKINETI C ER 10-8 MG/5ML ORAL SUSPENSION EXTENDED RELEASE HYDROCOD POLST-CHLORPHEN POLST I nactive ZITHROMAX Z-REYNA 250 MG ORAL TABLET 2 today, then 1 daily for 4 d ays ZITHROMAX Z-REYNA 250 MG ORAL TABLET 934484 AZITHROMYCIN Inactive CEFDINIR 300 MG ORAL CAPSULE by mouth twice a day 2010 CEFDINIR 300 MG ORAL CAPSULE 20020704 CEFDINIR Inactive CEFDINIR 300 MG ORAL CAPSULE by mouth twice a day 2010 CEFDINIR 300 MG ORAL CAPSULE 20020704 CEFDINIR Inactive CEFDINIR 300 MG ORAL CAPSULE by mouth twice a day 2010 CEFDINIR 300 MG ORAL CAPSULE 006470 CEFDINIR Inactive CEFDINIR 300 MG ORAL CAPSULE by mouth twice a day 2011 CEFDINIR 300 MG ORAL CAPSULE 280635 CEFDINIR Inactive ZITHROMAX 250 MG ORAL TABLET 2 po today, then 1 po q days 2-5 03/07/07 ZITHROMAX 250 MG ORAL TABLET 617969 AZITHROMYCIN Greer ctive CEFDINIR 300 MG ORAL CAPSULE by mouth twice a day 2011 CEFDINIR 300 MG ORAL CAPSULE 20020704 CEFDINIR Inactive PREDNISONE 20 MG ORAL TABLET 2 tabs daily for 3 days, 1 tab daily for 3 days, 1/2 tab daily for 2 days PREDNISONE 20 MG ORAL T ABLET 500333 PREDNISONE Inactive AVELOX 400 MG ORAL TABLET 1 tab by mouth daily AVELOX 400 MG ORAL TABLET 397130 MOXIFLOXACIN HCL Inactive AVELOX 400 MG ORAL TABLET 1 tab by mouth daily AVELOX 400 MG ORAL TABLET 019074 MOXIFLOXACIN HCL Inactive PREDNISONE 20 MG ORAL TABLET Take 3 tabs daily for 3 d ays, 2 tabs daily for 3 days, 1 tab daily for 3 days, 1/2 tab daily for 3 days 11/07 PREDNISONE 20 MG ORAL TABLET 150866 PREDNISONE Inactive LEVAQUIN 500 MG ORAL TABLET take one po QD LEVAQUIN 500 MG ORAL TABLET 218590 LEVOFLOXACIN Inactive AZITHROMYCIN 250 MG ORAL TABLET 2 po qd x 1 day, then 1 po q d x 4 days AZITHROMYCIN 250 MG ORAL TABLET 283758 AZITHROMY GIOVANNI Inactive MEDROL 4 MG ORAL TABLET THERAPY PACK 6 tabs on day 1, 5 tabs on day 2, 4 tabs on day 3, 3 tabs on day 4, 2 tabs on day 5, 1 tab on day 6 2013 MEDROL 4 MG ORAL TABLET THERAPY PACK 685757 METHYLPREDNISOLONE Greer ctive CHERATUSSIN AC 100-10 MG/5ML ORAL SYRUP 5ml po q6hr PRN Cough 20 13/04/14 CHERATUSSIN AC 100-10 MG/5ML ORAL SYRUP 829413 GUAIFENE SIN-CODEINE Inactive TRIAMCINOLONE ACETONIDE 0.1 % EXTERNAL CREAM apply three roger es daily prn rash TRIAMCINOLONE ACETONIDE 0.1 % EXTERNAL CREAM 101 4314 TRIAMCINOLONE ACETONIDE Inactive AZITHROMYCIN 250 MG ORAL TABLET 2 po qd x 1 day, then 1 po q d x 4 days AZITHROMYCIN 250 MG ORAL TABLET 282266 AZITHROMY GOIVANNI Inactive MEDROL 4 MG ORAL TABLET THERAPY PACK 6 pills x 1 day, then 5 pills x 1 day then 4 pills x 1 day, then 3 pills x 1 day, then 2 pills x 1 day, then 1 pill x 1 day, then stop MEDROL 4 MG ORAL TABLET THERAPY PACK 849732 METHYLPREDNISOLONE Inactive AMOXICILLIN 500 MG ORAL CAPSULE 1 tab by mouth 3 times daily x 10 days AMOXICILLIN 500 MG ORAL CAPSULE 778105 AMOXICILL IN Inactive AMOXICILLIN 500 MG ORAL CAPSULE 1 tab by mouth 3 times daily x 10 days AMOXICILLIN 500 MG ORAL CAPSULE 099926 AMOXICILL IN Inactive ZITHROMAX 250 MG ORAL TABLET 2 po today, then 1 po q days 2-5 20 12/08/14 ZITHROMAX 250 MG ORAL TABLET 232363 AZITHROMYCIN [place] ctive AUGMENTIN 875-125 MG ORAL TABLET 1 po BID x 10 days 13/01/20 AUGMENTIN 875-125 MG ORAL TABLET 855240 AMOXICILLIN-POT CLAVULANATE Inactive ZITHROMAX Z-REYNA 250 MG ORAL TABLET 2 today, then 1 daily for 4 d ays ZITHROMAX Z-REYNA 250 MG ORAL TABLET 014152 AZITHROMYCIN Inactive ZITHROMAX 250 MG ORAL TABLET 2 po today, then 1 po q days 2-5 20 14/03/21 ZITHROMAX 250 MG ORAL TABLET 578319 AZITHROMYCIN [place] ct[facility] ZITHROMAX Z-REYNA 250 MG ORAL TABLET 2 today, then 1 daily for 4 d ays ZITHROMAX Z-REYNA 250 MG ORAL TABLET 204992 AZITHROMYCIN Inactive CEFDINIR 300 MG ORAL CAPSULE 1 po BID x 10 days 06/21 CEFDINIR 300 MG ORAL CAPSULE [id number] CEFDINIR Inactive ZITHROMAX 250 MG ORAL TABLET 2 po today, then 1 po q days 2-5 20 13/08/10 ZITHROMAX 250 MG ORAL TABLET 297998 AZITHROMYCIN [place] [facility] LEVAQUIN 500 MG ORAL TABLET 1 tablet by mouth daily 13/09/24 LEVAQUIN 500 MG ORAL TABLET 783536 LEVOFLOXACIN Inactive SINGULAIR 10 MG ORAL TABLET 1 po qday for allergies 20 14/01/12 SINGULAIR 10 MG ORAL TABLET 696980 MONTELUKAST SODIUM Inactive AMOXICILLIN 500 MG ORAL CAPSULE 2 po BID x 10 days 201 09/29/08 AMOXICILLIN 500 MG ORAL CAPSULE 785800 AMOXICILLIN Inactive PREDNISONE 20 MG ORAL TABLET 2 tabs daily for 3 days, 1 tab daily for 3 days, 1/2 tab daily for 2 days PREDNISONE 20 MG ORAL T ABLET 611775 PREDNISONE Inactive ZITHROMAX Z-REYNA 250 MG ORAL TABLET 2 today, then 1 daily for 4 d ays ZITHROMAX Z-REYNA 250 MG ORAL TABLET 148848 AZITHROMYCIN Inactive PREDNISONE 20 MG ORAL TABLET 2 tabs daily for 3 days, 1 tab daily for 3 days, 1/2 tab daily for 2 days PREDNISONE 20 MG ORAL T ABLET 970697 PREDNISONE Inactive ZITHROMAX 250 MG ORAL TABLET 2 po today, then 1 po q days 2-5 20 14/09/04 ZITHROMAX 250 MG ORAL TABLET 877319 AZITHROMYCIN Greer ctive AMOXICILLIN 500 MG ORAL CAPSULE 1 cap by mouth three times a day AMOXICILLIN 500 MG ORAL CAPSULE 768329 AMOXICILLIN Inactive TERBINAFINE HCL 250 MG ORAL TABLET 1 qDay for nail fungus 7 TERBINAFINE HCL 250 MG ORAL TABLET 809135 TERBINAFINE HCL Inact nael AUGMENTIN 875-125 MG ORAL TABLET 1 po BID x 10 days 16/03/22 AUGMENTIN 875-125 MG ORAL TABLET 935998 AMOXICILLIN-POT CLAVULANATE Inactive PREDNISONE 20 MG ORAL TABLET 2 po qd x 5 days PREDNISONE 20 MG ORAL TABLET 771381 PREDNISONE Inactive AZITHROMYCIN 250 MG ORAL TABLET 2 po qd x 1 day, then 1 po q d x 4 days AZITHROMYCIN 250 MG ORAL TABLET 620519 AZITHROMY GIOVANNI Inactive Vital Signs Date Name [...] - Chem istry sodium, serum 139 mmol/L 325-486 9825/03/19 potassium, serum 3.6 mmol/L 3.5-5.2 chloride, serum 100 mmol/L 98-107 carbon dioxide, venous blood 30.3 mmol/L 21.0-32 .0 blood glucose 101 mg/dL 65-110 calcium, serum 9.4 mg/dL 8.5-10.1 urea nitrogen, blood 10 mg/dL 7-18 creatinine, serum 0.96 mg/dL 0.60-1.30 sodium, serum 139 mmol/L 282-760 8549/10/12 potassium, serum 3.8 mmol/L 3.5-5.2 chloride, serum 102 mmol/L 98-107 carbon dioxide, venous blood 29.4 mmol/L 21.0-32 .0 blood glucose 103 mg/dL 65-95 calcium, serum 8.8 mg/dL 8.5-10.1 urea nitrogen, blood 10 mg/dL 7-18 creatinine, serum 0.97 mg/dL 0.60-1.30 Estimated Glomerular Filtration Rate (calc) 62 (?) mL/min/1.73m2 = OR > 60 mL/min Encounters Code Encounter Date Provider Facility CPT-22786 [id number] Vst-Est Level III 11:12:16 CDT Yanet Bess DO [facility]-07237 Level 3 Est. Patient 11:34:49 VENEER GLUE SPREADER Perez Mora MD [facility]-52788 Level 4 Est. Patient 09:51:32 VENEER GLUE SPREADER Carlton rich MD [facility]-02325 Level 3 Est. Patient 10:26:00 VENEER GLUE SPREADER Elise stephenson [facility]-44247 Level 3 Est. Patient 13:35:41 VENEER GLUE SPREADER Carlton rich MD [facility]-77066 Level 3 Est. Patient 10:03:52 VENEER GLUE SPREADER Carlton rich MD [facility]-58893 Level 3 Est. Patient 12:17:50 CDT Hugo Restrepo MD [facility]-74076 Level 3 Est. Patient 13:42:38 CDT Elise stephenson [facility]-01013 Level 3 Est. Patient 13:23:51 CDT Diya cobian [facility]-59728 Level 3 Est. Patient 14:22:19 VENEER GLUE SPREADER Diya cobian [facility]-44184 Level 3 Est. Patient 10:11:46 CDT Carlton rich MD [facility]-10583 Level 3 Est. Patient 17:29:43 CDT Elise Are ll RESEARCH CLERK [facility] CPT-33525 Level 3 Est. Patient 11:58:06 CDT Elise Are ll RESEARCH CLERK [facility] CPT-99094 Level 4 Est. Patient 14:36:51 CDT Carlton rich MD [facility] CPT-26891 Level 3 Est. Patient 18:16:00 VENEER GLUE SPREADER Blaine Freeman [facility] CPT-41116 Level 3 Est. Patient 09:45:49 VENEER GLUE SPREADER Carlton rich MD [facility] CPT-54041 Level 3 Est. Patient 13:19:20 CDT Carlton rich MD [facility]-04179 Level 3 Est. Patient 13:06:43 CDT Ridge tam DO [facility] CPT-06727 Level 3 Est. Patient 10:03:07 CDT Perez Mora MD [facility] CPT-12966 Level 3 Est. Patient 19:50:35 VENEER GLUE SPREADER Carlton rich MD [facility] CPT-77015 Level 4 Est. Patient 18:05:01 VENEER GLUE SPREADER Carlton rich MD [facility] CPT-49168 Level 3 Est. Patient 10:45:55 VENEER GLUE SPREADER Hugo Restrepo MD [facility] CPT-67829 Level 3 Est. Patient 14:12:49 CDT Griffin lincoln [facility] CPT-63561 Level 3 Est. Patient 17:37:24 CDT Carlton rich MD [facility] CPT-95905 Level 3 Est. Patient 16:51:54 CDT Carlton rich MD [facility] CPT-69450 Level 3 Est. Patient 12:18:11 CDT Hugo Restrepo MD [facility] CPT-27201 Level 3 Est. Patient 11:30:25 CDT Marcy crisostomo MD PhD [facility] CPT-92079 Level 3 Est. Patient 12:00:47 VENEER GLUE SPREADER Carlton rich MD [facility] CPT-42388 Level 3 Est. Patient 16:31:06 VENEER GLUE SPREADER Carlton rich MD [facility] CPT-66520 Level 3 Est. Patient 16:23:24 VENEER GLUE SPREADER Ridge tam [facility] CPT-60687 Level 3 Est. Patient 12:34:12 CDT Carlton rich MD [facility] CPT-48087 Level 2 Est. Patient 15:43:33 CDT Robi armstrong MD [facility] CPT-93953 Level 4 Est. Patient 14:04:44 CDT Carlton rich MD [facility] CPT-56472 Level 3 Est. Patient 05:47:59 CDT Ridge tam [facility] CPT-05392 Level 3 Est. Patient 13:12:53 VENEER GLUE SPREADER Carlton rich MD [facility] CPT-54829 Level 3 Est. Patient 14:26:53 CDT Hugo Restrepo MD [facility] Procedures Code Procedure Name Date Entry Date Standard Desc ription CPT-000 Give Appropriate Flu Vaccine 14:14:31 CDT CPT-J1040 Depo Medrol 80 mg (Methyl Prednisolone A cetate) 10:42:44 CDT CPT-J1100 Decadron 8mg (Dexamethasone) 10:42:44 CDT 2 CPT-J0696 Rocephin 1gm Inj Solr 14:32:13 CDT CPT-J1020 Depo Medrol 60 mg (Methyl Prednisolone A cetate) 14:32:13 CDT CPT-J1100 Decadron 6mg (Dexamethasone) 14:32:13 CDT 2 CPT-29745 Hip bilat min 2V w AP pelvis 13:16:20 CDT 2 CPT-51466 Pelvis only 13:07:33 CDT CPT-26843 Spec Collection and Handling Fee 11:25:12 C DT CPT-39384 Fluzone Quadrivalent Intramuscular Suspe nsion 0.5 ML 14:31:55 CDT CPT-74622 Abx/Therapy Injection 13:28:47 VENEER GLUE SPREADER CPT-J2930 Solu Medrol 125 mg (Methyl Prednisolone Sodium Succinate) 12:00:47 VENEER GLUE SPREADER CPT-20006 Venipuncture Draw Fee 11:33:31 CDT CPT-45006 EKG Trac and Interp 11:21:09 CDT CPT-26739 Chest 2V Frontal and Lat 11:21:09 CDT 12/15 CPT-34085 Venipuncture Draw Fee 08:02:34 CDT CPT-31156 Chest 2V Frontal and Lat 05:47:59 CDT 06/05
--- OUTSIDE RECORDS SUMMARY | 2019-10-08 09:23 | XMS REPORT | Clinical Summary ---
Author Author Caitlin, Juliana Martinez Organization [facility] Address Unknown Phone Unavailable [...] unspecified CALF PAIN, LEFT 729.5 Active Hugo eRstrepo MD Pain in limb SINUSITIS 473.9 Active [...] URI 465.9 Inactive Ridge Bess DO Ac cabazon upper respiratory infections of unspecified site Body [...] Rhinitis, acute ICD-460 Inactive Hugo Ochoa MD Pharyngitis acute ICD-462 Inactive Hugo gore MD Medication List Medication Instructions Start Date Stop Date Generic Name NDC Status Provider Patient Instruction AZITHROMYCIN 250 MG ORAL TABLET 2 po qd x 1 day, then 1 po q d x 4 days AZITHROMYCIN [id number] No Longer Active Ridge Bess DO Active PREDNISONE 20 MG ORAL TABLET two tabs by mouth today, then one tab by mouth days two and three and four PREDNISONE 11660447253 Active Lyndsay Mora MD Active PREDNISONE 20 MG ORAL TABLET 2 po qd x 5 days P REDNISONE 45631317728 No Longer Active Perez Mora MD Active PROAIR HFA 108 (90 BASE) MCG/ACT INHALATION AEROSOL SO LUTION 2 puffs four times a day as needed ALBUTEROL SULFATE 63903146612 No Long er Active Becky FUENTES Active ASPIRIN 81 MG ORAL TABLET 1 po qd ASPIRIN 07762567986 Active Carlton Hu MD Active PREDNISONE 20 MG ORAL TABLET 1 tab twice daily for 3 d ay, then one daily for three days PREDNISONE 96801470871 No Longer Active Carlton Hu MD Active AUGMENTIN 875-125 MG ORAL TABLET 1 po BID x 10 days 20 16/03/22 AMOXICILLIN-POT CLAVULANATE 21634854650 No Longer Active Elise Garcia APRN Active TERBINAFINE HCL 250 MG ORAL TABLET 1 qDay for nail fungus 7 TERBINAFINE HCL 96292226123 No Longer Active Carlton Hu MD A ctive TUSSIONEX PENNKINETIC ER 10-8 MG/5ML ORAL SUSPENSION E XTENDED RELEASE 5ml po q12hr PRN Cough HYDROCOD POLST-CHLORPHEN POLST 41247253145 Active Carlton Hu MD Active AMOXICILLIN 500 MG ORAL CAPSULE 1 cap by mouth three times a day AMOXICILLIN 69705087992 No Longer Active Carlton Hu MD Active ELMIRON 100 MG ORAL CAPSULE 2 tablets in the am and 1 tablet at hs PENTOSAN POLYSULFATE SODIUM 77120371099 No Longer Active Robert jade Hu MD Active MUCINEX D 60-600 MG ORAL TABLET EXTENDED RELEASE 12 HOUR 1 t ab po q am PSEUDOEPHEDRINE-GUAIFENESIN 80381655005 No Longer Act neal Carlton Hu MD Active MUCINEX DM MAXIMUM STRENGTH 60-1200 MG ORAL TABLET EXT ENDED RELEASE 12 HOUR 1 tab po q am DEXTROMETHORPHAN-GUAIFENESIN 89132305492 No Longer Active Carlton Hu MD Active TUSSIONEX PENNKINETIC ER 10-8 MG/5ML ORAL SUSPENSION E XTENDED RELEASE 5ml po q12hr PRN Cough HYDROCOD POLST-CHLORPHEN POLST 5 5697562850 No Longer Active Carlton Hu MD Active POTASSIUM CHLORIDE ER 20 MEQ ORAL TABLET EXTENDED RELE ASE Take 1 by mouth 4 times daily for 7 days POTASSIUM CHLORIDE 57784354737 No Longer Active Carlton Hu MD Active ZITHROMAX 250 MG ORAL TABLET 2 po today, then 1 po q days 2-5 14/09/04 AZITHROMYCIN 63510884055 No Longer Active Elise Garcia APRN Active TUSSIONEX PENNKINETIC ER 10-8 MG/5ML ORAL SUSPENSION E XTENDED RELEASE 5 ml twice a day as needed for cough HYDROCOD POLST-CHLORPH EN POLST 77748980009 No Longer Active Elise Garcia APRN Active MONTELUKAST SODIUM 10 MG ORAL TABLET 1 po daily for Allergy MONTELUKAST SODIUM 36751269077 Active Carlton Hu MD Ac tive TUSSIONEX PENNKINETIC ER 10-8 MG/5ML ORAL SUSPENSION E XTENDED RELEASE 5ml po q12hr PRN Cough HYDROCOD POLST-CHLORPHEN POLST 5 4615401763 No Longer Active Hugo Restrepo MD Active GABAPENTIN 100 MG ORAL CAPSULE 1 po BID for fibromyalgia GABAPENTIN 07816035565 Active Carlton Hu MD Active LYRICA 100 MG ORAL CAPSULE Take 1 tab po BID for fibromyalgia 20 11/08/21 PREGABALIN 00621790852 No Longer Active Elise Garcia MINER HELPER A ctive PREDNISONE 20 MG ORAL TABLET 2 tabs daily for 3 days, 1 tab daily for 3 days, 1/2 tab daily for 2 days PREDNISONE 73276643729 No Longer Active Jillina Frazell MINER HELPER Active TUSSIONEX PENNKINETIC ER 10-8 MG/5ML ORAL SUSPENSION E XTENDED RELEASE 5 mL PO q 12 hrs PRN cough HYDROCOD POLST-CHLORPHEN POLST 757677 57595 No Longer Active Jillina Frazell MINER HELPER Active FLUTICASONE PROPIONATE 50 MCG/ACT NASAL SUSPENSION 2 s prays each nostril daily until bottle is empty FLUTICASONE PROPIONATE 833216504 99 No Longer Active Jillina Frazell MINER HELPER Active ASMANEX 60 METERED DOSES 220 MCG/INH INHALATION AEROSO L POWDER BREATH ACTIVATED 1 puff bid with rinse after MOMETASONE FUROATE 5604094 4102 No Longer Active Jillina Frazell MINER HELPER Active ZITHROMAX Z-REYNA 250 MG ORAL TABLET 2 today, then 1 daily for 4 d ays AZITHROMYCIN 47162620612 No Longer Active Elise Garcia MINER HELPER Active TUSSIONEX PENNKINETIC ER 10-8 MG/5ML ORAL SUSPENSION E XTENDED RELEASE 5ml po q12hr PRN Cough HYDROCOD POLST-CHLORPHEN POLST 5 1603120469 No Longer Active Elise Garcia MINER HELPER Active PREDNISONE 20 MG ORAL TABLET 2 tabs daily for 3 days, 1 tab daily for 3 days, 1/2 tab daily for 2 days PREDNISONE 66849952414 No Longer Active Jillina Frazell MINER HELPER Active AMOXICILLIN 500 MG ORAL CAPSULE 2 po BID x 10 days 201 09/29/08 AMOXICILLIN 16450242446 No Longer Active Jillina Frazell MINER HELPER Act nael SINGULAIR 10 MG ORAL TABLET 1 po qday for allergies 20 14/01/12 MONTELUKAST SODIUM 64537110829 No Longer Active Carlton Hu MD Active LEVAQUIN 500 MG ORAL TABLET 1 tablet by mouth daily 20 13/09/24 LEVOFLOXACIN 55594633073 No Longer Active Carlton Hu MD Acti ve FLUTICASONE PROPIONATE 50 MCG/ACT NASAL SUSPENSION 2 s prays each nostril daily for 2 weeks, then 1 spray each nostril daily. FLUTICASONE PROPIONATE 18975327080 Active ALFREDO Holly Active ZITHROMAX 250 MG ORAL TABLET 2 po today, then 1 po q days 2-5 20 13/08/10 AZITHROMYCIN 13375839728 No Longer Active Elise Garcia APRN Active XANAX 0.5 MG ORAL TABLET one tablet by mouth daily prn anxiety 2015 ALPRAZOLAM 71098202575 Active ALFREDO Holly Active CYMBALTA 30 MG ORAL CAPSULE DELAYED RELEASE PARTICLES 1 cap by mouth daily for depression DULOXETINE HCL 16493970776 Active ALFREDO Holly Active CEFDINIR 300 MG ORAL CAPSULE 1 po BID x 10 days CEFDINIR 92103242434 No Longer Active Carlton Hu MD Active ZOCOR 40 MG ORAL TABLET 1 tab by mouth daily SI MVASTATIN 52488729432 No Longer Active Carlton Hu MD Active CYCLOBENZAPRINE HCL 10 MG ORAL TABLET 1 tablet by mouth BID prn had pain CYCLOBENZAPRINE HCL 62006258696 No Longer Active Jayden Hu MD Active LEVOFLOXACIN 500 MG ORAL TABLET 1 tab PO daily x 10 days LEVOFLOXACIN 98149973653 No Longer Active Carlton Hu MD Acti ve PREDNISONE 20 MG ORAL TABLET 3 tab PO qd x 2d, 2 tab P O qd x 2d, 1 tab PO qd x 2d, 1/2 tab PO qd x 2d PREDNISONE 44343364323 No Lo nger Active Carlton Hu MD Active FLUTICASONE PROPIONATE 50 MCG/ACT NASAL SUSPENSION 1 t o 2 sprays each nostril daily FLUTICASONE PROPIONATE 11601280958 No Longer Ac tive Blaine HERNANDEZ Active CHERATUSSIN AC 100-10 MG/5ML ORAL SYRUP 1 tsp by mouth every 4 hours as needed for cough GUAIFENESIN-CODEINE 22322881432 No Longe r Active Blaine HERNANDEZ Active PROMETHAZINE-CODEINE 6.25-10 MG/5ML ORAL SYRUP 1 tsp b y mouth every 6 hours if needed for cough PROMETHAZINE-CODEINE 30299146043 No Longer Active Blaine HERNANDEZ Active CHERATUSSIN AC 100-10 MG/5ML ORAL SYRUP 1 tsp by mouth every 4 hours as needed for cough GUAIFENESIN-CODEINE 68150646946 No Longe r Active Blaine HERNANDEZ Active ZITHROMAX Z-REYNA 250 MG ORAL TABLET 2 today, then 1 daily for 4 d ays AZITHROMYCIN 80976824109 No Longer Active Columba Raida Act nael ZITHROMAX 250 MG ORAL TABLET 2 po today, then 1 po q days 2-5 20 14/03/21 AZITHROMYCIN 93776174421 No Longer Active Carlton Hu MD Active ZITHROMAX Z-REYNA 250 MG ORAL TABLET 2 today, then 1 daily for 4 d ays AZITHROMYCIN 18053172210 No Longer Active Columba Raida Act nael AUGMENTIN 875-125 MG ORAL TABLET 1 po BID x 10 days 13/01/20 AMOXICILLIN-POT CLAVULANATE 46073934588 No Longer Active Diya De Guzman APRN Active ZITHROMAX 250 MG ORAL TABLET 2 po today, then 1 po q days 2-5 20 12/08/14 AZITHROMYCIN 41010361041 No Longer Active Carlton Hu MD Active TRAMADOL HCL 50 MG ORAL TABLET 1 po tid with ES Tylenol TRAMADOL HCL 97504023883 Active Adrienne Means Leonor 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 PREMARIN 0.625 MG ORAL TABLET TAKE 1 TAB BY MOUTH DAILY ESTROGENS CONJUGATED 58502700127 No Longer Active Ridge Bess DO A ctive CYMBALTA 30 MG ORAL CAPSULE DELAYED RELEASE PARTICLES 1 cap by mouth daily DULOXETINE HCL 78280213272 No Longer Active Ridge Ya ee DO Active AMOXICILLIN 500 MG ORAL CAPSULE 1 tab by mouth 3 times daily x 10 days AMOXICILLIN 30987935348 No Longer Active Carlton bustamante MD Active AMOXICILLIN 500 MG ORAL CAPSULE 1 tab by mouth 3 times daily x 10 days AMOXICILLIN 56899337195 No Longer Active Carlton bustamante MD Active PROMETHAZINE-CODEINE 6.25-10 MG/5ML ORAL SYRUP 1 tsp b y mouth every 8 hours prn cough PROMETHAZINE-CODEINE 76453711776 No Longer Acti ve Carlton Hu MD Active MEDROL 4 MG ORAL TABLET THERAPY PACK 6 pills x 1 day, then 5 pills x 1 day then 4 pills x 1 day, then 3 pills x 1 day, then 2 pills x 1 day, then 1 pill x 1 day, then stop METHYLPREDNISOLONE 19109178267 No Long er Active Perez Mora MD Active AZITHROMYCIN 250 MG ORAL TABLET 2 po qd x 1 day, then 1 po q d x 4 days AZITHROMYCIN 40780425420 No Longer Active Perez Ambriz MD Active SYMBICORT 160-4.5 MCG/ACT INHALATION AEROSOL 2 puffs bid wit h rinse after BUDESONIDE-FORMOTEROL FUMARATE 99356429503 N o Longer Active Perez Mora MD Active LYRICA 75 MG ORAL CAPSULE TAKE 1 CAPSULE BY MOUTH TWICE DAILY PREGABALIN 33589259522 No Longer Active Carlton Hu MD Acti ve TOPAMAX 25 MG ORAL TABLET 1 qHS x 1 week, then 1 BID x 1 week, then 1 qAM and 2 qHS x 1 week, then 2 BID (migraine prevention) T OPIRAMATE 07756416843 No Longer Active Jerica FUENTES Active TOPAMAX 50 MG ORAL TABLET take 1 tab po BID for migraines. 07/02 TOPIRAMATE 58009172343 No Longer Active Jerica FUENTES Active TOPAMAX 100 MG ORAL TABLET Take 1 tablet po bid TO PIRAMATE 95675355556 Active ALFREDO Holly Active TRIAMCINOLONE ACETONIDE 0.1 % EXTERNAL CREAM apply three roger es daily prn rash TRIAMCINOLONE ACETONIDE 58739884859 No Longer Active Carlton Hu MD Active PAXIL 40 MG ORAL TABLET take 1 tab po qday for depression 0 PAROXETINE HCL 26235490619 Active ALRFEDO Holly Active CHERATUSSIN AC 100-10 MG/5ML ORAL SYRUP 5ml po q6hr PRN Cough 20 13/04/14 GUAIFENESIN-CODEINE 04797514436 No Longer Active Carlton Hu MD Active MEDROL 4 MG ORAL TABLET THERAPY PACK 6 tabs on day 1, 5 tabs on day 2, 4 tabs on day 3, 3 tabs on day 4, 2 tabs on day 5, 1 tab on day 6 2013 METHYLPREDNISOLONE 37008934032 No Longer Active Perez Mora MD Active AZITHROMYCIN 250 MG ORAL TABLET 2 po qd x 1 day, then 1 po q d x 4 days AZITHROMYCIN 58146595475 No Longer Active Perez Ambriz MD Active PROPRANOLOL HCL 60 MG ORAL TABLET 1 PO Q D PROPRANOLOL HCL 01145812632 No Longer Active Perez Mora MD Activ e CHERATUSSIN AC 100-10 MG/5ML ORAL SYRUP take one tsp po Q 6h ours prn cough GUAIFENESIN-CODEINE 78908914157 No Longer Active iZa Mora MD Active AUGMENTIN 875-125 MG ORAL TABLET 1 tab by mouth twice daily with food AMOXICILLIN-POT CLAVULANATE 00198067100 No Longer Act nael Mora MD Active CHERATUSSIN AC 100-10 MG/5ML ORAL SYRUP 1 tsp by mouth every 4 hours as needed for cough GUAIFENESIN-CODEINE 97454843208 No Longe r Active Hugo Restrepo MD Active ACETAMINOPHEN-CODEINE #3 300-30 MG ORAL TABLET 1 PO Q 4-6 HRS MS N PAIN ACETAMINOPHEN-CODEINE 56577534455 No Longer Active Hugo Restrepo MD Active LEVAQUIN 500 MG ORAL TABLET take one po QD LEVO FLOXACIN 13462440584 No Longer Active Griffin HERNANDEZ Active PREDNISONE 20 MG ORAL TABLET Take 3 tabs daily for 3 d ays, 2 tabs daily for 3 days, 1 tab daily for 3 days, 1/2 tab daily for 3 days 11/07 PREDNISONE 22692444321 No Longer Active Carlton Hu MD Acti ve AVELOX 400 MG ORAL TABLET 1 tab by mouth daily MOXIFLOXACIN HCL 71970669303 No Longer Active Carlton Hu MD Active CHERATUSSIN AC 100-10 MG/5ML ORAL SYRUP 1 tsp by mouth every 4 hours as needed for cough GUAIFENESIN-CODEINE 54860466663 No Longe r Active Hugo Restrepo MD Active AVELOX 400 MG ORAL TABLET 1 tab by mouth daily MOXIFLOXACIN HCL 69409489499 No Longer Active Marcy De La Rosa MD PhD Active TERBINAFINE HCL 250 MG ORAL TABLET 1 qDay T ERBINAFINE HCL 34196885357 No Longer Active Marcy De La Rosa MD PhD Active CHERATUSSIN AC 100-10 MG/5ML ORAL SYRUP 1 tsp by mouth every 4 hours as needed for cough GUAIFENESIN-CODEINE 69520167376 No Longe r Active Marcy De La Rosa MD PhD Active AVELOX 400 MG ORAL TABLET 1 tab by mouth daily MOXIFLOXACIN HCL 11621249761 No Longer Active Marcy De La Rosa MD PhD Active HYDROCODONE-ACETAMINOPHEN 5-325 MG ORAL TABLET 1 po q 6hr PRN co ugh HYDROCODONE-ACETAMINOPHEN 84697930610 No Longer Active Marcy De La Rosa MD PhD Active PREDNISONE 20 MG ORAL TABLET 2 tabs daily for 3 days, 1 tab daily for 3 days, 1/2 tab daily for 2 days PREDNISONE 79600355099 No Longer Active Carlton Hu MD Active CEFDINIR 300 MG ORAL CAPSULE by mouth twice a day 2011 CEFDINIR 93994438992 No Longer Active Carlton Hu MD Acti ve HYDROCHLOROTHIAZIDE 25 MG ORAL TABLET 1 TAB PO DAILY HYDROCHLOROTHIAZIDE 83585934352 Active Adrienne Galvez 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 ACETAMINOPHEN-CODEINE #3 300-30 MG ORAL TABLET 1 tablet po q 4-6 hrs prn pain ACETAMINOPHEN-CODEINE 04462706910 No Longer Active Ridge Bess DO Active ZITHROMAX 250 MG ORAL TABLET 2 po today, then 1 po q days 2-5 20 03/07/07 AZITHROMYCIN 70008383317 No Longer Active Carlton Hu MD Active CHERATUSSIN AC 100-10 MG/5ML ORAL SYRUP take 1 tsp po q4-6 h ours prn cough GUAIFENESIN-CODEINE 19021857595 No Longer Active Jayden Hu MD Active ACETAMINOPHEN-CODEINE #3 300-30 MG ORAL TABLET 1 PO Q 4-6 HR PRN PAIN ACETAMINOPHEN-CODEINE 22112259068 No Longer Active Da vid Lyndsay Hu MD Active LORTAB 7.5-500 MG/15ML ORAL ELIXIR 7.5 ml po q 4 hour prn cough HYDROCODONE-ACETAMINOPHEN 35426682703 No Longer Active Carlton Hu MD Active PREDNISONE 20 MG ORAL TABLET 1 po bid 3 days, then 1 po q day 3 days PREDNISONE 53771685332 No Longer Active Carlton Hu MD Active CEFDINIR 300 MG ORAL CAPSULE by mouth twice a day 2011 CEFDINIR 48162372097 No Longer Active Carlton Hu MD Acti ve CEFDINIR 300 MG ORAL CAPSULE by mouth twice a day 2010 CEFDINIR 15443954773 No Longer Active Carlton Hu MD Acti ve CEFDINIR 300 MG ORAL CAPSULE by mouth twice a day 2010 CEFDINIR 47179859208 No Longer Active Carlton Hu MD Acti ve TESSALON PERLES 100 MG ORAL CAPSULE 1 tablet by mouth 3 times daily as needed for cough BENZONATATE 30491193394 No Longer Active Carlton Hu MD Active CEFDINIR 300 MG ORAL CAPSULE by mouth twice a day 2010 CEFDINIR 27958421397 No Longer Active Carlton Hu MD Acti ve ZITHROMAX Z-REYNA 250 MG ORAL TABLET 2 today, then 1 daily for 4 d ays AZITHROMYCIN 51076149289 No Longer Active Hugo Restrepo MD Active TESSALON PERLES 100 MG ORAL CAPSULE 1 tablet by mouth 3 times daily as needed for cough TESSALON PERLES 100 MG ORAL CAPSULE 77292 7 BENZONATATE Inactive PREDNISONE 20 MG ORAL TABLET 1 po bid 3 days, then 1 po q day 3 days PREDNISONE 20 MG ORAL TABLET 675150 PREDNISONE Greer ctive LORTAB 7.5-500 MG/15ML ORAL [...] cough CHERATUSSIN AC 100-10 MG/5ML ORAL SYRUP 334236 GUAIFENESIN-CODEINE Inactive ACETAMINOPHEN-CODEINE #3 300-30 MG ORAL TABLET 1 tablet po q 4-6 hrs prn pain ACETAMINOPHEN-CODEINE #3 300-30 MG ORAL TABLET ACETAMINOPHEN-CODEINE Inactive HYDROCODONE-ACETAMINOPHEN 5-325 MG ORAL TABLET 1 po q 6hr PRN co ugh HYDROCODONE-ACETAMINOPHEN 5-325 MG ORAL TABLET 180791 HYDROCODONE-ACETAMINOPHEN Inactive AVELOX 400 MG ORAL TABLET 1 tab by mouth daily AVELOX 400 MG ORAL TABLET 542203 MOXIFLOXACIN HCL Inactive CHERATUSSIN AC 100-10 MG/5ML ORAL SYRUP 1 tsp by mouth every 4 hours as needed for cough CHERATUSSIN AC 100-10 MG/5ML ORAL SYRUP 9 89882 GUAIFENESIN-CODEINE Inactive TERBINAFINE HCL 250 MG ORAL TABLET 1 qDay 07/08 TERBINAFINE HCL 250 MG ORAL TABLET 511688 TERBINAFINE HCL Inactive CHERATUSSIN AC 100-10 MG/5ML ORAL SYRUP 1 tsp by mouth every 4 hours as needed for cough CHERATUSSIN AC 100-10 MG/5ML ORAL SYRUP 9 65001 GUAIFENESIN-CODEINE Inactive ACETAMINOPHEN-CODEINE #3 300-30 MG ORAL TABLET 1 PO Q 4-6 HRS MS N PAIN ACETAMINOPHEN-CODEINE #3 300-30 MG ORAL TABLET ACETAMINOPHEN-CODEINE Inactive CHERATUSSIN AC 100-10 MG/5ML ORAL SYRUP 1 tsp by mouth every 4 hours as needed for cough CHERATUSSIN AC 100-10 MG/5ML ORAL SYRUP 9 77386 GUAIFENESIN-CODEINE Inactive AUGMENTIN 875-125 MG ORAL TABLET 1 tab by mouth twice daily with food AUGMENTIN 875-125 MG ORAL TABLET 366163 AMOXICIL MADELINE-POT CLAVULANATE Inactive CHERATUSSIN AC 100-10 MG/5ML ORAL SYRUP take one tsp po Q 6h ours prn cough CHERATUSSIN AC 100-10 MG/5ML ORAL SYRUP 646319 GUAIFENESIN-CODEINE Inactive PROPRANOLOL HCL 60 MG ORAL TABLET 1 PO Q D PROPRANOLOL HCL 60 MG ORAL TABLET 391441 PROPRANOLOL HCL Inactive TOPAMAX 50 MG ORAL TABLET take 1 tab po BID for migraines. 07/02 TOPAMAX 50 MG ORAL TABLET 756020 TOPIRAMATE Inacti ve TOPAMAX 25 MG ORAL TABLET 1 qHS x 1 week, then 1 BID x 1 week, then 1 qAM and 2 qHS x 1 week, then 2 BID (migraine prevention) TOPAMAX 25 MG ORAL TABLET 499865 TOPIRAMATE Inactive LYRICA 75 MG ORAL CAPSULE TAKE 1 CAPSULE BY MOUTH TWICE DAILY LYRICA 75 MG ORAL CAPSULE PREGABALIN Inactive SYMBICORT 160-4.5 MCG/ACT INHALATION AEROSOL 2 puffs bid wit h rinse after SYMBICORT 160-4.5 MCG/ACT INHALATION AEROSOL BUDESONIDE- FORMOTEROL FUMARATE Inactive PROMETHAZINE-CODEINE 6.25-10 MG/5ML ORAL SYRUP 1 tsp b y mouth every 8 hours prn cough PROMETHAZINE-CODEINE 6.25-10 MG/ 5ML ORAL SYRUP 886735 PROMETHAZINE-CODEINE Inactive CYMBALTA 30 MG ORAL CAPSULE DELAYED RELEASE PARTICLES 1 cap by mouth daily CYMBALTA 30 MG ORAL CAPSULE DELAYED RELE ASE PARTICLES 085676 DULOXETINE HCL Inactive PREMARIN 0.625 MG ORAL TABLET TAKE 1 TAB BY MOUTH DAILY PREMARIN 0.625 MG ORAL TABLET ESTROGENS CONJUGATED Inactive CHERATUSSIN AC 100-10 MG/5ML ORAL SYRUP 1 tsp by mouth every 4 hours as needed for cough CHERATUSSIN AC 100-10 MG/5ML ORAL SYRUP 9 89468 GUAIFENESIN-CODEINE Inactive PROMETHAZINE-CODEINE 6.25-10 MG/5ML ORAL SYRUP 1 tsp b y mouth every 6 hours if needed for cough PROMETHAZINE-CODEINE 6.25-10 MG/5ML ORAL SYRUP 334751 PROMETHAZINE-CODEINE Inactive CHERATUSSIN AC 100-10 MG/5ML ORAL SYRUP 1 tsp by mouth every 4 hours as needed for cough CHERATUSSIN AC 100-10 MG/5ML ORAL SYRUP 9 07442 GUAIFENESIN-CODEINE Inactive FLUTICASONE PROPIONATE 50 MCG/ACT NASAL SUSPENSION 1 t o 2 sprays each nostril daily FLUTICASONE PROPIONATE 50 MCG/AC T NASAL SUSPENSION 5558917 FLUTICASONE PROPIONATE Inactive PREDNISONE 20 MG ORAL TABLET 3 tab PO qd x 2d, 2 tab P O qd x 2d, 1 tab PO qd x 2d, 1/2 tab PO qd x 2d PREDNISONE 20 MG ORAL TAB LET 612551 PREDNISONE Inactive LEVOFLOXACIN 500 MG ORAL TABLET 1 tab PO daily x 10 days LEVOFLOXACIN 500 MG ORAL TABLET 929457 LEVOFLOXACIN Inactive CYCLOBENZAPRINE HCL 10 MG ORAL TABLET 1 tablet by mouth BID prn had pain CYCLOBENZAPRINE HCL 10 MG ORAL TABLET 944978 CYCLOBENZAPRINE HCL Inactive ZOCOR 40 MG ORAL TABLET 1 tab by mouth daily 4 ZOCOR 40 MG ORAL TABLET 248562 SIMVASTATIN Inactive TUSSIONEX PENNKINETIC ER 10-8 MG/5ML [...] FLUTICASONE PROPIO EFE 50 MCG/ACT NASAL SUSPENSION 8185442 FLUTICASONE PROPIONATE Inactive TUSSIONEX PENNKINETIC ER 10-8 [...] three days PREDNISONE 20 MG ORAL TABLET 738183 PREDNIS ONE Inactive PROAIR HFA 108 (90 BASE) MCG/ACT INHALATION AEROSOL SO LUTION 2 puffs four times a day as needed PROAIR HFA 108 (90 B ASE) MCG/ACT INHALATION AEROSOL SOLUTION ALBUTEROL SULFATE Inactive ZITHROMAX Z-REYNA 250 MG ORAL TABLET 2 today, then 1 daily for 4 d ays ZITHROMAX Z-REYNA 250 MG ORAL TABLET 124979 AZITHROMYCIN Inactive CEFDINIR 300 MG ORAL CAPSULE by mouth twice a day 2010 CEFDINIR 300 MG ORAL CAPSULE 954792 CEFDINIR Inactive CEFDINIR 300 MG ORAL CAPSULE by mouth twice a day 2010 CEFDINIR 300 MG ORAL CAPSULE 558020 CEFDINIR Inactive CEFDINIR 300 MG ORAL CAPSULE by mouth twice a day 2010 CEFDINIR 300 MG ORAL CAPSULE 687101 CEFDINIR Inactive CEFDINIR 300 MG ORAL CAPSULE by mouth twice a day 2011 CEFDINIR 300 MG ORAL CAPSULE 293775 CEFDINIR Inactive ZITHROMAX 250 MG ORAL TABLET 2 po today, then 1 po q days 2-5 20 03/07/07 ZITHROMAX 250 MG ORAL TABLET 775593 AZITHROMYCIN Ryde ctive CEFDINIR 300 MG ORAL CAPSULE by mouth twice a day 2011 CEFDINIR 300 MG ORAL CAPSULE 126313 CEFDINIR Inactive PREDNISONE 20 MG ORAL TABLET 2 tabs daily for 3 days, 1 tab daily for 3 days, 1/2 tab daily for 2 days PREDNISONE 20 MG ORAL T ABLET 410109 PREDNISONE Inactive AVELOX 400 MG ORAL TABLET 1 tab by mouth daily AVELOX 400 MG ORAL TABLET 991953 MOXIFLOXACIN HCL Inactive AVELOX 400 MG ORAL TABLET 1 tab by mouth daily AVELOX 400 MG ORAL TABLET 225787 MOXIFLOXACIN HCL Inactive PREDNISONE 20 MG ORAL TABLET Take 3 tabs daily for 3 d ays, 2 tabs daily for 3 days, 1 tab daily for 3 days, 1/2 tab daily for 3 days 11/07 PREDNISONE 20 MG ORAL TABLET 100646 PREDNISONE Inactive LEVAQUIN 500 MG ORAL TABLET take one po QD LEVAQUIN 500 MG ORAL TABLET 306722 LEVOFLOXACIN Inactive AZITHROMYCIN 250 MG ORAL TABLET 2 po qd x 1 day, then 1 po q d x 4 days AZITHROMYCIN 250 MG ORAL TABLET 525970 AZITHROMY GIOVANNI Inactive MEDROL 4 MG ORAL TABLET THERAPY PACK 6 tabs on day 1, 5 tabs on day 2, 4 tabs on day 3, 3 tabs on day 4, 2 tabs on day 5, 1 tab on day 6 2013 MEDROL 4 MG ORAL TABLET THERAPY PACK 176688 METHYLPREDNISOLONE Ryde ctive CHERATUSSIN AC 100-10 MG/5ML ORAL SYRUP 5ml po q6hr PRN Cough 20 13/04/14 CHERATUSSIN AC 100-10 MG/5ML ORAL SYRUP 276765 GUAIFENE SIN-CODEINE Inactive TRIAMCINOLONE ACETONIDE 0.1 % EXTERNAL CREAM apply three roger es daily prn rash TRIAMCINOLONE ACETONIDE 0.1 % EXTERNAL CREAM 101 4314 TRIAMCINOLONE ACETONIDE Inactive AZITHROMYCIN 250 MG ORAL TABLET 2 po qd x 1 day, then 1 po q d x 4 days AZITHROMYCIN 250 MG ORAL TABLET 558462 AZITHROMY GIOVANNI Inactive MEDROL 4 MG ORAL TABLET THERAPY PACK 6 pills x 1 day, then 5 pills x 1 day then 4 pills x 1 day, then 3 pills x 1 day, then 2 pills x 1 day, then 1 pill x 1 day, then stop MEDROL 4 MG ORAL TABLET THERAPY PACK 412668 METHYLPREDNISOLONE Inactive AMOXICILLIN 500 MG ORAL CAPSULE 1 tab by mouth 3 times daily x 10 days AMOXICILLIN 500 MG ORAL CAPSULE 181790 AMOXICILL IN Inactive AMOXICILLIN 500 MG ORAL CAPSULE 1 tab by mouth 3 times daily x 10 days AMOXICILLIN 500 MG ORAL CAPSULE 805435 AMOXICILL IN Inactive ZITHROMAX 250 MG ORAL TABLET 2 po today, then 1 po q days 2-5 20 12/08/14 ZITHROMAX 250 MG ORAL TABLET 636299 AZITHROMYCIN Greer ctive AUGMENTIN 875-125 MG ORAL TABLET 1 po BID x 10 days 20 13/01/20 AUGMENTIN 875-125 MG ORAL TABLET 673965 AMOXICILLIN-POT CLAVULANATE Inactive ZITHROMAX Z-REYNA 250 MG ORAL TABLET 2 today, then 1 daily for 4 d ays ZITHROMAX Z-REYNA 250 MG ORAL TABLET 304942 AZITHROMYCIN Inactive ZITHROMAX 250 MG ORAL TABLET 2 po today, then 1 po q days 2-5 20 14/03/21 ZITHROMAX 250 MG ORAL TABLET 143086 AZITHROMYCIN Greer ctive ZITHROMAX Z-REYNA 250 MG ORAL TABLET 2 today, then 1 daily for 4 d ays ZITHROMAX Z-REYNA 250 MG ORAL TABLET 596620 AZITHROMYCIN Inactive CEFDINIR 300 MG ORAL CAPSULE 1 po BID x 10 days 06/21 CEFDINIR 300 MG ORAL CAPSULE 662127 CEFDINIR Inactive ZITHROMAX 250 MG ORAL TABLET 2 po today, then 1 po q days 2-5 20 13/08/10 ZITHROMAX 250 MG ORAL TABLET 479371 AZITHROMYCIN Greer ctive LEVAQUIN 500 MG ORAL TABLET 1 tablet by mouth daily 20 13/09/24 LEVAQUIN 500 MG ORAL TABLET 764376 LEVOFLOXACIN Inactive SINGULAIR 10 MG ORAL TABLET 1 po qday for allergies 20 14/01/12 SINGULAIR 10 MG ORAL TABLET 459065 MONTELUKAST SODIUM Inactive AMOXICILLIN 500 MG ORAL CAPSULE 2 po BID x 10 days 201 09/29/08 AMOXICILLIN 500 MG ORAL CAPSULE 199551 AMOXICILLIN Inactive PREDNISONE 20 MG ORAL TABLET 2 tabs daily for 3 days, 1 tab daily for 3 days, 1/2 tab daily for 2 days PREDNISONE 20 MG ORAL T ABLET 396334 PREDNISONE Inactive ZITHROMAX Z-REYNA 250 MG ORAL TABLET 2 today, then 1 daily for 4 d ays ZITHROMAX Z-REYNA 250 MG ORAL TABLET 613899 AZITHROMYCIN Inactive PREDNISONE 20 MG ORAL TABLET 2 tabs daily for 3 days, 1 tab daily for 3 days, 1/2 tab daily for 2 days PREDNISONE 20 MG ORAL T ABLET [id number] PREDNISONE Inactive ZITHROMAX 250 MG ORAL TABLET 2 po today, then 1 po q days 2-5 20 14/09/04 ZITHROMAX 250 MG ORAL TABLET [id number] AZITHROMYCIN [facility] AMOXICILLIN 500 MG ORAL CAPSULE 1 cap by mouth three times a day AMOXICILLIN 500 MG ORAL CAPSULE 038411 AMOXICILLIN Inactive TERBINAFINE HCL 250 MG ORAL TABLET 1 qDay for nail fungus 7 TERBINAFINE HCL 250 MG ORAL TABLET 191509 TERBINAFINE HCL Inact nael AUGMENTIN 875-125 MG ORAL TABLET 1 po BID x 10 days 16/03/22 AUGMENTIN 875-125 MG ORAL TABLET 867064 AMOXICILLIN-POT CLAVULANATE Inactive PREDNISONE 20 MG ORAL TABLET 2 po qd x 5 days PREDNISONE 20 MG ORAL TABLET 287769 PREDNISONE Inactive AZITHROMYCIN 250 MG ORAL TABLET 2 po qd x 1 day, then 1 po q d x 4 days AZITHROMYCIN 250 MG ORAL TABLET 009345 AZITHROMY GIOVANNI Inactive Vital Signs Date Name [...] 0.96 mg/dL 0.60-1.30 sodium, serum 139 mmol/L [phone]/10/12 potassium, serum 3.8 mmol/L 3.5-5.2 chloride, serum [...] 136-145 Encounters Code Encounter Date Provider Facility CPT-38802 [id number] Vst-Est Level III 11:12:16 CDT Yanet Bess DO [facility] CPT-38333 Level 3 Est. Patient 11:34:49 [employer] Perez Mora MD [facility] CPT-74805 Level 4 Est. Patient 09:51:32 [employer] Carlton rich MD [facility] CPT-89545 Level 3 Est. Patient 10:26:00 [employer]SULTANT Elise stephenson [facility] CPT-22248 Level 3 Est. Patient 13:35:41 [employer]SULTANT Carlton rich MD [facility]-27439 Level 3 Est. Patient 10:03:52 [employer] Carlton rich MD [facility] CPT-38722 Level 3 Est. Patient 12:17:50 CDT Hugo Restrepo MD [facility] CPT-07510 Level 3 Est. Patient 13:42:38 CDT Elise stephenson [facility] CPT-31239 Level 3 Est. Patient 13:23:51 CDT Diya cobian [facility]-29206 Level 3 Est. Patient 14:22:19 [employer] Diya cobian [facility] CPT-22974 Level 3 Est. Patient 10:11:46 CDT Carlton rich MD [facility] CPT-81093 Level 3 Est. Patient 17:29:43 CDT Elise Are ll [employer] [facility] CPT-68536 Level 3 Est. Patient 11:58:06 CDT Elise Are ll [facility] CPT-00251 Level 4 Est. Patient 14:36:51 CDT Carlton rich MD [facility] CPT-00502 Level 3 Est. Patient 18:16:00 [employer] Blaine Freeman [facility] CPT-66899 Level 3 Est. Patient 09:45:49 [employer] CONSULTANT Carlton rich MD [facility] CPT-17910 Level 3 Est. Patient 13:19:20 CDT Carlton rich MD [facility] CPT-37504 Level 3 Est. Patient 13:06:43 CDT Ridge tam DO [facility] CPT-62653 Level 3 Est. Patient 10:03:07 CDT Perez Mora MD [facility] CPT-30931 Level 3 Est. Patient 19:50:35 [employer] Carlton rich MD [facility] CPT-16124 Level 4 Est. Patient 18:05:01 [employer]SULTANT Carlton rich MD [facility] CPT-06177 Level 3 Est. Patient 10:45:55 [employer]SULTANT Hugo Restrepo MD [facility] CPT-41661 Level 3 Est. Patient 14:12:49 CDT Griffin lincoln [facility] CPT-31324 Level 3 Est. Patient 17:37:24 CDT Carlton rich MD [facility] CPT-46922 Level 3 Est. Patient 16:51:54 CDT Carlton rich MD [facility] CPT-08694 Level 3 Est. Patient 12:18:11 CDT Hugo Restrepo MD [facility] CPT-78312 Level 3 Est. Patient 11:30:25 CDT Marcy crisostomo MD PhD [facility] CPT-25644 Level 3 Est. Patient 12:00:47 [employer]SULT[employer] Carlton rich MD [facility] CPT-40927 Level 3 Est. Patient 16:31:06 [employer]SULTANT Carlton rich MD [facility] CPT-15542 Level 3 Est. Patient 16:23:24 [employer] CONSULTANT Ridge tam [facility] CPT-26243 Level 3 Est. Patient 12:34:12 CDT Carlton rich MD [facility] CPT-39465 Level 2 Est. Patient 15:43:33 CDT Robi armstrong MD [facility] CPT-34344 Level 4 Est. Patient 14:04:44 CDT Carlton rich MD [facility] CPT-65587 Level 3 Est. Patient 05:47:59 CDT Ridge tam [facility] CPT-26105 Level 3 Est. Patient 13:12:53 [employer]SULTANT Carlton rich MD [facility] CPT-71039 Level 3 Est. Patient 14:26:53 CDT Hugo Restrepo MD [facility] Procedures Code Procedure Name Date Entry Date Standard Desc ription CPT-000 Give Appropriate Flu Vaccine 14:14:31 CDT 2 CPT-J1040 Depo Medrol 80 mg (Methyl Prednisolone A cetate) 10:42:44 CDT CPT-J1100 Decadron 8mg (Dexamethasone) 10:42:44 CDT 2 CPT-J0696 Rocephin 1gm Inj Solr 14:32:13 CDT CPT-J1020 Depo Medrol 60 mg (Methyl Prednisolone A cetate) 14:32:13 CDT CPT-J1100 Decadron 6mg (Dexamethasone) 14:32:13 CDT 2 CPT-43681 Hip bilat min 2V w AP pelvis 13:16:20 CDT 2 CPT-34587 Pelvis only 13:07:33 CDT CPT-30916 Spec Collection and Handling Fee 11:25:12 C DT CPT-70881 Fluzone Quadrivalent Intramuscular Suspe nsion 0.5 ML 14:31:55 CDT CPT-33295 Abx/Therapy Injection 13:28:47 [employer] CPT-J2930 Solu Medrol 125 mg (Methyl Prednisolone Sodium Succinate) 12:00:47 [employer] CPT-84043 Venipuncture Draw Fee 11:33:31 CDT CPT-58262 EKG Trac and Interp 11:21:09 CDT CPT-97440 Chest 2V Frontal and Lat 11:21:09 CDT 12/15 CPT-90667 Venipuncture Draw Fee 08:02:34 CDT CPT-09107 Chest 2V Frontal and Lat 05:47:59 CDT 06/05
--- OUTSIDE RECORDS SUMMARY | 2019-10-08 09:23 | XMS REPORT | Clinical Summary ---
Author Author Caitlin, Juliana Martinez Organization [facility] Address Unknown Phone Unavailable [...] po q d x 4 days AZITHROMYCIN [id number] No Longer Active Ridge Bess DO Active PREDNISONE 20 MG ORAL TABLET two tabs by mouth today, then one tab by mouth days two and three and four PREDNISONE 77796111550 Active Lyndsay Mora MD Active PREDNISONE 20 MG ORAL TABLET 2 po qd x 5 days P REDNISONE 26728014648 No Longer Active Perez Mora MD Active PROAIR HFA 108 (90 BASE) MCG/ACT INHALATION AEROSOL SO LUTION 2 puffs four times a day as needed ALBUTEROL SULFATE 28395986394 No Long er Active Becky FUENTES Active ASPIRIN 81 MG ORAL TABLET 1 po qd ASPIRIN 07362367946 Active Carlton Hu MD Active PREDNISONE 20 MG ORAL TABLET 1 tab twice daily for 3 d ay, then one daily for three days PREDNISONE 18596078067 No Longer Active Carlton Hu MD Active AUGMENTIN 875-125 MG ORAL TABLET 1 po BID x 10 days 20 16/03/22 AMOXICILLIN-POT CLAVULANATE 02554486058 No Longer Active Elise Garcia APRN Active TERBINAFINE HCL 250 MG ORAL TABLET 1 qDay for nail fungus 7 TERBINAFINE HCL 49845445855 No Longer Active Carlton Hu MD A ctive TUSSIONEX PENNKINETIC ER 10-8 MG/5ML ORAL SUSPENSION E XTENDED RELEASE 5ml po q12hr PRN Cough HYDROCOD POLST-CHLORPHEN POLST 46695258120 Active Carlton Hu MD Active AMOXICILLIN 500 MG ORAL CAPSULE 1 cap by mouth three times a day AMOXICILLIN 89645346377 No Longer Active Carlton Hu MD Active ELMIRON 100 MG ORAL CAPSULE 2 tablets in the am and 1 tablet at hs PENTOSAN POLYSULFATE SODIUM 26727143078 No Longer Active Robert Hu MD Active MUCINEX D 60-600 MG ORAL TABLET EXTENDED RELEASE 12 HOUR 1 t ab po q am PSEUDOEPHEDRINE-GUAIFENESIN 84090220910 No Longer Act nael Carlton Hu MD Active MUCINEX DM MAXIMUM STRENGTH 60-1200 MG ORAL TABLET EXT ENDED RELEASE 12 HOUR 1 tab po q am DEXTROMETHORPHAN-GUAIFENESIN 25849036635 No Longer Active Carlton Hu MD Active TUSSIONEX PENNKINETIC ER 10-8 MG/5ML ORAL SUSPENSION E XTENDED RELEASE 5ml po q12hr PRN Cough HYDROCOD POLST-CHLORPHEN POLST 5 5216281062 No Longer Active Carlton Hu MD Active POTASSIUM CHLORIDE ER 20 MEQ ORAL TABLET EXTENDED RELE ASE Take 1 by mouth 4 times daily for 7 days POTASSIUM CHLORIDE 92038046756 No Longer Active Carlton Hu MD Active ZITHROMAX 250 MG ORAL TABLET 2 po today, then 1 po q days 2-5 14/09/04 AZITHROMYCIN 26467178596 No Longer Active Elise Garcia APRN Active TUSSIONEX PENNKINETIC ER 10-8 MG/5ML ORAL SUSPENSION E XTENDED RELEASE 5 ml twice a day as needed for cough HYDROCOD POLST-CHLORPH EN POLST 67938330663 No Longer Active Elise Garcia APRN Active MONTELUKAST SODIUM 10 MG ORAL TABLET 1 po daily for Allergy MONTELUKAST SODIUM 54985008677 Active Carlton Hu MD Ac tive TUSSIONEX PENNKINETIC ER 10-8 MG/5ML ORAL SUSPENSION E XTENDED RELEASE 5ml po q12hr PRN Cough HYDROCOD POLST-CHLORPHEN POLST 5 3590129269 No Longer Active Hugo Restrepo MD Active GABAPENTIN 100 MG ORAL CAPSULE 1 po BID for fibromyalgia GABAPENTIN 83156581596 Active Carlton Hu MD Active LYRICA 100 MG ORAL CAPSULE Take 1 tab po BID for fibromyalgia 20 11/08/21 PREGABALIN 20179725528 No Longer Active Elise Garcia INSULATION PROFESSIONAL A ctive PREDNISONE 20 MG ORAL TABLET 2 tabs daily for 3 days, 1 tab daily for 3 days, 1/2 tab daily for 2 days PREDNISONE 67854239732 No Longer Active Jillina Frazell INSULATION PROFESSIONAL Active TUSSIONEX PENNKINETIC ER 10-8 MG/5ML ORAL SUSPENSION E XTENDED RELEASE 5 mL PO q 12 hrs PRN cough HYDROCOD POLST-CHLORPHEN POLST 968877 94077 No Longer Active Jillina Frazell INSULATION PROFESSIONAL Active FLUTICASONE PROPIONATE 50 MCG/ACT NASAL SUSPENSION 2 s prays each nostril daily until bottle is empty FLUTICASONE PROPIONATE 201535811 99 No Longer Active Jillina Frazell INSULATION PROFESSIONAL Active ASMANEX 60 METERED DOSES 220 MCG/INH INHALATION AEROSO L POWDER BREATH ACTIVATED 1 puff bid with rinse after MOMETASONE FUROATE 2045965 4102 No Longer Active Jillina Frazell INSULATION PROFESSIONAL Active ZITHROMAX Z-REYNA 250 MG ORAL TABLET 2 today, then 1 daily for 4 d ays AZITHROMYCIN 77232229295 No Longer Active Elise Garcia INSULATION PROFESSIONAL Active TUSSIONEX PENNKINETIC ER 10-8 MG/5ML ORAL SUSPENSION E XTENDED RELEASE 5ml po q12hr PRN Cough HYDROCOD POLST-CHLORPHEN POLST 5 9834864473 No Longer Active Elise Garcia INSULATION PROFESSIONAL Active PREDNISONE 20 MG ORAL TABLET 2 tabs daily for 3 days, 1 tab daily for 3 days, 1/2 tab daily for 2 days PREDNISONE 42204254668 No Longer Active Jillina Frazell INSULATION PROFESSIONAL Active AMOXICILLIN 500 MG ORAL CAPSULE 2 po BID x 10 days 201 09/29/08 AMOXICILLIN 30454122711 No Longer Active Jillina Frazell INSULATION PROFESSIONAL Act nael SINGULAIR 10 MG ORAL TABLET 1 po qday for allergies 20 14/01/12 MONTELUKAST SODIUM 98323735617 No Longer Active Carlton Hu MD Active LEVAQUIN 500 MG ORAL TABLET 1 tablet by mouth daily 20 13/09/24 LEVOFLOXACIN 09744181286 No Longer Active Carlton Hu MD Acti ve FLUTICASONE PROPIONATE 50 MCG/ACT NASAL SUSPENSION 2 s prays each nostril daily for 2 weeks, then 1 spray each nostril daily. FLUTICASONE PROPIONATE 20030677101 Active Elise Areseema KHAN Active ZITHROMAX 250 MG ORAL TABLET 2 po today, then 1 po q days 2-5 20 13/08/10 AZITHROMYCIN 11383669097 No Longer Active Elise Garcia APRN Active XANAX 0.5 MG ORAL TABLET one tablet by mouth daily prn anxiety 2015 ALPRAZOLAM 63372419670 Active ALFREDO Holly Active CYMBALTA 30 MG ORAL CAPSULE DELAYED RELEASE PARTICLES 1 cap by mouth daily for depression DULOXETINE HCL 24304597889 Active ALFREDO Holly Active CEFDINIR 300 MG ORAL CAPSULE 1 po BID x 10 days CEFDINIR 77236959746 No Longer Active Carlton Hu MD Active ZOCOR 40 MG ORAL TABLET 1 tab by mouth daily SI MVASTATIN 39398953339 No Longer Active Carlton Hu MD Active CYCLOBENZAPRINE HCL 10 MG ORAL TABLET 1 tablet by mouth BID prn had pain CYCLOBENZAPRINE HCL 07774381431 No Longer Active Jayden Hu MD Active LEVOFLOXACIN 500 MG ORAL TABLET 1 tab PO daily x 10 days LEVOFLOXACIN 75435419815 No Longer Active Carlton Hu MD Acti ve PREDNISONE 20 MG ORAL TABLET 3 tab PO qd x 2d, 2 tab P O qd x 2d, 1 tab PO qd x 2d, 1/2 tab PO qd x 2d PREDNISONE 32711139784 No Lo nger Active Carlton Hu MD Active FLUTICASONE PROPIONATE 50 MCG/ACT NASAL SUSPENSION 1 t o 2 sprays each nostril daily FLUTICASONE PROPIONATE 09562606725 No Longer Ac tive Blaine HERNANDEZ Active CHERATUSSIN AC 100-10 MG/5ML ORAL SYRUP 1 tsp by mouth every 4 hours as needed for cough GUAIFENESIN-CODEINE 57130434624 No Longe r Active Blaine HERNANDEZ Active PROMETHAZINE-CODEINE 6.25-10 MG/5ML ORAL SYRUP 1 tsp b y mouth every 6 hours if needed for cough PROMETHAZINE-CODEINE 66525172796 No Longer Active Blaine HERNANDEZ Active CHERATUSSIN AC 100-10 MG/5ML ORAL SYRUP 1 tsp by mouth every 4 hours as needed for cough GUAIFENESIN-CODEINE 23313115724 No Longe r Active Blaine HERNANDEZ Active ZITHROMAX Z-REYNA 250 MG ORAL TABLET 2 today, then 1 daily for 4 d ays AZITHROMYCIN 95832280086 No Longer Active [place] Raida Act nael ZITHROMAX 250 MG ORAL TABLET 2 po today, then 1 po q days 2-5 20 14/03/21 AZITHROMYCIN 83312199225 No Longer Active Carlton Hu MD Active ZITHROMAX Z-REYNA 250 MG ORAL TABLET 2 today, then 1 daily for 4 d ays AZITHROMYCIN 33075975643 No Longer Active Columba Raida Act nael AUGMENTIN 875-125 MG ORAL TABLET 1 po BID x 10 days 13/01/20 AMOXICILLIN-POT CLAVULANATE 63562103524 No Longer Active Diya De Guzman APRN Active ZITHROMAX 250 MG ORAL TABLET 2 po today, then 1 po q days 2-5 20 12/08/14 AZITHROMYCIN 16086030685 No Longer Active Carlton Hu MD Active TRAMADOL HCL 50 MG ORAL TABLET 1 po tid with ES Tylenol TRAMADOL HCL 17268615979 Active Adrienne Means Leonor 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 PREMARIN 0.625 MG ORAL TABLET TAKE 1 TAB BY MOUTH DAILY ESTROGENS CONJUGATED 27732914751 No Longer Active Ridge Bess DO A ctive CYMBALTA 30 MG ORAL CAPSULE DELAYED RELEASE PARTICLES 1 cap by mouth daily DULOXETINE HCL 14492335510 No Longer Active Ridge Ya ee DO Active AMOXICILLIN 500 MG ORAL CAPSULE 1 tab by mouth 3 times daily x 10 days AMOXICILLIN 54832776923 No Longer Active Carlton bustamante MD Active AMOXICILLIN 500 MG ORAL CAPSULE 1 tab by mouth 3 times daily x 10 days AMOXICILLIN 03074435070 No Longer Active Carlton bustamante MD Active PROMETHAZINE-CODEINE 6.25-10 MG/5ML ORAL SYRUP 1 tsp b y mouth every 8 hours prn cough PROMETHAZINE-CODEINE 22408030562 No Longer Acti ve Carlton Hu MD Active MEDROL 4 MG ORAL TABLET THERAPY PACK 6 pills x 1 day, then 5 pills x 1 day then 4 pills x 1 day, then 3 pills x 1 day, then 2 pills x 1 day, then 1 pill x 1 day, then stop METHYLPREDNISOLONE 05828880029 No Long er Active Perez Mora MD Active AZITHROMYCIN 250 MG ORAL TABLET 2 po qd x 1 day, then 1 po q d x 4 days AZITHROMYCIN 03899973948 No Longer Active Perez Ambriz MD Active SYMBICORT 160-4.5 MCG/ACT INHALATION AEROSOL 2 puffs bid wit h rinse after BUDESONIDE-FORMOTEROL FUMARATE 65984659730 N o Longer Active Perez Mora MD Active LYRICA 75 MG ORAL CAPSULE TAKE 1 CAPSULE BY MOUTH TWICE DAILY PREGABALIN 52831136196 No Longer Active Carlton Hu MD Acti ve TOPAMAX 25 MG ORAL TABLET 1 qHS x 1 week, then 1 BID x 1 week, then 1 qAM and 2 qHS x 1 week, then 2 BID (migraine prevention) T OPIRAMATE 27360778766 No Longer Active Jerica FUENTES Active TOPAMAX 50 MG ORAL TABLET take 1 tab po BID for migraines. 07/02 TOPIRAMATE 61627341955 No Longer Active Jerica FUENTES Active TOPAMAX 100 MG ORAL TABLET Take 1 tablet po bid TO PIRAMATE 17543198873 Active ALFREDO Holly Active TRIAMCINOLONE ACETONIDE 0.1 % EXTERNAL CREAM apply three roger es daily prn rash TRIAMCINOLONE ACETONIDE 32176961920 No Longer Active Carlton Hu MD Active PAXIL 40 MG ORAL TABLET take 1 tab po qday for depression 0 PAROXETINE HCL 53245064241 Active ALFREDO Holly Active CHERATUSSIN AC 100-10 MG/5ML ORAL SYRUP 5ml po q6hr PRN Cough 20 13/04/14 GUAIFENESIN-CODEINE 89353680080 No Longer Active Carlton Hu MD Active MEDROL 4 MG ORAL TABLET THERAPY PACK 6 tabs on day 1, 5 tabs on day 2, 4 tabs on day 3, 3 tabs on day 4, 2 tabs on day 5, 1 tab on day 6 2013 METHYLPREDNISOLONE 95817831070 No Longer Active Perez Mora MD Active AZITHROMYCIN 250 MG ORAL TABLET 2 po qd x 1 day, then 1 po q d x 4 days AZITHROMYCIN 82781224783 No Longer Active Perez Ambriz MD Active PROPRANOLOL HCL 60 MG ORAL TABLET 1 PO Q D PROPRANOLOL HCL 60636270030 No Longer Active Perez Mora MD Activ e CHERATUSSIN AC 100-10 MG/5ML ORAL SYRUP take one tsp po Q 6h ours prn cough GUAIFENESIN-CODEINE 98778295313 No Longer Active Zia Mora MD Active AUGMENTIN 875-125 MG ORAL TABLET 1 tab by mouth twice daily with food AMOXICILLIN-POT CLAVULANATE 39668927553 No Longer Act nael Mora MD Active CHERATUSSIN AC 100-10 MG/5ML ORAL SYRUP 1 tsp by mouth every 4 hours as needed for cough GUAIFENESIN-CODEINE 02335637439 No Longe r Active Hugo Restrepo MD Active ACETAMINOPHEN-CODEINE #3 300-30 MG ORAL TABLET 1 PO Q 4-6 HRS DC N PAIN ACETAMINOPHEN-CODEINE 17702921347 No Longer Active Hugo Restrepo MD Active LEVAQUIN 500 MG ORAL TABLET take one po QD LEVO FLOXACIN 39175842320 No Longer Active Griffin HERNANDEZ Active PREDNISONE 20 MG ORAL TABLET Take 3 tabs daily for 3 d ays, 2 tabs daily for 3 days, 1 tab daily for 3 days, 1/2 tab daily for 3 days 11/07 PREDNISONE 69760247318 No Longer Active Carlton Hu MD Acti ve AVELOX 400 MG ORAL TABLET 1 tab by mouth daily MOXIFLOXACIN HCL 51726423749 No Longer Active Carlton Hu MD Active CHERATUSSIN AC 100-10 MG/5ML ORAL SYRUP 1 tsp by mouth every 4 hours as needed for cough GUAIFENESIN-CODEINE 90933545675 No Longe r Active Hugo Restrepo MD Active AVELOX 400 MG ORAL TABLET 1 tab by mouth daily MOXIFLOXACIN HCL 10732126822 No Longer Active Marcy De La Rosa MD PhD Active TERBINAFINE HCL 250 MG ORAL TABLET 1 qDay T ERBINAFINE HCL 42546000810 No Longer Active Marcy De La Rosa MD PhD Active CHERATUSSIN AC 100-10 MG/5ML ORAL SYRUP 1 tsp by mouth every 4 hours as needed for cough GUAIFENESIN-CODEINE 31263992306 No Longe r Active Marcy De La Rosa MD PhD Active AVELOX 400 MG ORAL TABLET 1 tab by mouth daily MOXIFLOXACIN HCL 97756446902 No Longer Active Marcy De La Rosa MD PhD Active HYDROCODONE-ACETAMINOPHEN 5-325 MG ORAL TABLET 1 po q 6hr PRN co ugh HYDROCODONE-ACETAMINOPHEN 37129011966 No Longer Active Marcy De La Rosa MD PhD Active PREDNISONE 20 MG ORAL TABLET 2 tabs daily for 3 days, 1 tab daily for 3 days, 1/2 tab daily for 2 days PREDNISONE 99300350255 No Longer Active Carlton Hu MD Active CEFDINIR 300 MG ORAL CAPSULE by mouth twice a day 2011 CEFDINIR 30247392222 No Longer Active Carlton Hu MD Acti ve HYDROCHLOROTHIAZIDE 25 MG ORAL TABLET 1 TAB PO DAILY HYDROCHLOROTHIAZIDE 93147827155 Active Adrienne Galvez 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 ACETAMINOPHEN-CODEINE #3 300-30 MG ORAL TABLET 1 tablet po q 4-6 hrs prn pain ACETAMINOPHEN-CODEINE 27838538930 No Longer Active Ridge Bess DO Active ZITHROMAX 250 MG ORAL TABLET 2 po today, then 1 po q days 2-5 20 03/07/07 AZITHROMYCIN 11471987355 No Longer Active Carlton Hu MD Active CHERATUSSIN AC 100-10 MG/5ML ORAL SYRUP take 1 tsp po q4-6 h ours prn cough GUAIFENESIN-CODEINE 66958739964 No Longer Active Jayden Hu MD Active ACETAMINOPHEN-CODEINE #3 300-30 MG ORAL TABLET 1 PO Q 4-6 HR PRN PAIN ACETAMINOPHEN-CODEINE 80716217019 No Longer Active Da vid Lyndsay Hu MD Active LORTAB 7.5-500 MG/15ML ORAL ELIXIR 7.5 ml po q 4 hour prn cough HYDROCODONE-ACETAMINOPHEN 80468407317 No Longer Active Carlton Hu MD Active PREDNISONE 20 MG ORAL TABLET 1 po bid 3 days, then 1 po q day 3 days PREDNISONE 06987366210 No Longer Active Carlton Hu MD Active CEFDINIR 300 MG ORAL CAPSULE by mouth twice a day 2011 CEFDINIR 47795274514 No Longer Active Carlton Hu MD Acti ve CEFDINIR 300 MG ORAL CAPSULE by mouth twice a day 2010 CEFDINIR 31083410159 No Longer Active Carlton Hu MD Acti ve CEFDINIR 300 MG ORAL CAPSULE by mouth twice a day 2010 CEFDINIR 89964854381 No Longer Active Carlton Hu MD Acti ve TESSALON PERLES 100 MG ORAL CAPSULE 1 tablet by mouth 3 times daily as needed for cough BENZONATATE 65149741013 No Longer Active Carlton Hu MD Active CEFDINIR 300 MG ORAL CAPSULE by mouth twice a day 2010 CEFDINIR 81135666542 No Longer Active Carlton Hu MD Acti ve ZITHROMAX Z-REYNA 250 MG ORAL TABLET 2 today, then 1 daily for 4 d ays AZITHROMYCIN 33185739419 No Longer Active Hugo Restrepo MD Active TESSALON PERLES 100 MG ORAL CAPSULE 1 tablet by mouth 3 times daily as needed for cough TESSALON PERLES 100 MG ORAL CAPSULE 79115 7 BENZONATATE Inactive PREDNISONE 20 MG ORAL TABLET 1 po bid 3 days, then 1 po q day 3 days PREDNISONE 20 MG ORAL TABLET 918325 PREDNISONE [place] ctive LORTAB 7.5-500 MG/15ML ORAL ELIXIR 7.5 [...] cough CHERATUSSIN AC 100-10 MG/5ML ORAL SYRUP 094465 GUAIFENESIN-CODEINE Inactive ACETAMINOPHEN-CODEINE #3 300-30 MG ORAL TABLET 1 tablet po q 4-6 hrs prn pain ACETAMINOPHEN-CODEINE #3 300-30 MG ORAL TABLET ACETAMINOPHEN-CODEINE Inactive HYDROCODONE-ACETAMINOPHEN 5-325 MG ORAL TABLET 1 po q 6hr PRN co ugh HYDROCODONE-ACETAMINOPHEN 5-325 MG ORAL TABLET 809004 HYDROCODONE-ACETAMINOPHEN Inactive AVELOX 400 MG ORAL TABLET 1 tab by mouth daily AVELOX 400 MG ORAL TABLET 315042 MOXIFLOXACIN HCL Inactive CHERATUSSIN AC 100-10 MG/5ML ORAL SYRUP 1 tsp by mouth every 4 hours as needed for cough CHERATUSSIN AC 100-10 MG/5ML ORAL SYRUP 9 23849 GUAIFENESIN-CODEINE Inactive TERBINAFINE HCL 250 MG ORAL TABLET 1 qDay 07/08 TERBINAFINE HCL 250 MG ORAL TABLET 128550 TERBINAFINE HCL Inactive CHERATUSSIN AC 100-10 MG/5ML ORAL SYRUP 1 tsp by mouth every 4 hours as needed for cough CHERATUSSIN AC 100-10 MG/5ML ORAL SYRUP 9 65969 GUAIFENESIN-CODEINE Inactive ACETAMINOPHEN-CODEINE #3 300-30 MG ORAL TABLET 1 PO Q 4-6 HRS DC N PAIN ACETAMINOPHEN-CODEINE #3 300-30 MG ORAL TABLET ACETAMINOPHEN-CODEINE Inactive CHERATUSSIN AC 100-10 MG/5ML ORAL SYRUP 1 tsp by mouth every 4 hours as needed for cough CHERATUSSIN AC 100-10 MG/5ML ORAL SYRUP 9 49393 GUAIFENESIN-CODEINE Inactive AUGMENTIN 875-125 MG ORAL TABLET 1 tab by mouth twice daily with food AUGMENTIN 875-125 MG ORAL TABLET 810959 AMOXICIL MADELINE-POT CLAVULANATE Inactive CHERATUSSIN AC 100-10 MG/5ML ORAL SYRUP take one tsp po Q 6h ours prn cough CHERATUSSIN AC 100-10 MG/5ML ORAL SYRUP 551111 GUAIFENESIN-CODEINE Inactive PROPRANOLOL HCL 60 MG ORAL TABLET 1 PO Q D PROPRANOLOL HCL 60 MG ORAL TABLET 710234 PROPRANOLOL HCL Inactive TOPAMAX 50 MG ORAL TABLET take 1 tab po BID for migraines. 07/02 TOPAMAX 50 MG ORAL TABLET 689089 TOPIRAMATE Inacti ve TOPAMAX 25 MG ORAL TABLET 1 qHS x 1 week, then 1 BID x 1 week, then 1 qAM and 2 qHS x 1 week, then 2 BID (migraine prevention) TOPAMAX 25 MG ORAL TABLET 818442 TOPIRAMATE Inactive LYRICA 75 MG ORAL CAPSULE TAKE 1 CAPSULE BY MOUTH TWICE DAILY LYRICA 75 MG ORAL CAPSULE PREGABALIN Inactive SYMBICORT 160-4.5 MCG/ACT INHALATION AEROSOL 2 puffs bid wit h rinse after SYMBICORT 160-4.5 MCG/ACT INHALATION AEROSOL BUDESONIDE- FORMOTEROL FUMARATE Inactive PROMETHAZINE-CODEINE 6.25-10 MG/5ML ORAL SYRUP 1 tsp b y mouth every 8 hours prn cough PROMETHAZINE-CODEINE 6.25-10 MG/ 5ML ORAL SYRUP 566345 PROMETHAZINE-CODEINE Inactive CYMBALTA 30 MG ORAL CAPSULE DELAYED RELEASE PARTICLES 1 cap by mouth daily CYMBALTA 30 MG ORAL CAPSULE DELAYED RELE ASE PARTICLES 949580 DULOXETINE HCL Inactive PREMARIN 0.625 MG ORAL TABLET TAKE 1 TAB BY MOUTH DAILY PREMARIN 0.625 MG ORAL TABLET ESTROGENS CONJUGATED Inactive CHERATUSSIN AC 100-10 MG/5ML ORAL SYRUP 1 tsp by mouth every 4 hours as needed for cough CHERATUSSIN AC 100-10 MG/5ML ORAL SYRUP 9 80372 GUAIFENESIN-CODEINE Inactive PROMETHAZINE-CODEINE 6.25-10 MG/5ML ORAL SYRUP 1 tsp b y mouth every 6 hours if needed for cough PROMETHAZINE-CODEINE 6.25-10 MG/5ML ORAL SYRUP 039089 PROMETHAZINE-CODEINE Inactive CHERATUSSIN AC 100-10 MG/5ML ORAL SYRUP 1 tsp by mouth every 4 hours as needed for cough CHERATUSSIN AC 100-10 MG/5ML ORAL SYRUP 9 00727 GUAIFENESIN-CODEINE Inactive FLUTICASONE PROPIONATE 50 MCG/ACT NASAL SUSPENSION 1 t o 2 sprays each nostril daily FLUTICASONE PROPIONATE 50 MCG/AC T NASAL SUSPENSION 7438151 FLUTICASONE PROPIONATE Inactive PREDNISONE 20 MG ORAL TABLET 3 tab PO qd x 2d, 2 tab P O qd x 2d, 1 tab PO qd x 2d, 1/2 tab PO qd x 2d PREDNISONE 20 MG ORAL TAB LET 499085 PREDNISONE Inactive LEVOFLOXACIN 500 MG ORAL TABLET 1 tab PO daily x 10 days LEVOFLOXACIN 500 MG ORAL TABLET 505184 LEVOFLOXACIN Inactive CYCLOBENZAPRINE HCL 10 MG ORAL TABLET 1 tablet by mouth BID prn had pain CYCLOBENZAPRINE HCL 10 MG ORAL TABLET 459300 CYCLOBENZAPRINE HCL Inactive ZOCOR 40 MG ORAL TABLET 1 tab by mouth daily 4 ZOCOR 40 MG ORAL TABLET 843932 SIMVASTATIN Inactive TUSSIONEX PENNKINETIC ER 10-8 MG/5ML [...] FLUTICASONE PROPIO EFE 50 MCG/ACT NASAL SUSPENSION 0087854 FLUTICASONE PROPIONATE Inactive TUSSIONEX PENNKINETIC ER 10-8 [...] three days PREDNISONE 20 MG ORAL TABLET 944816 PREDNIS ONE Inactive PROAIR HFA 108 (90 BASE) MCG/ACT INHALATION AEROSOL SO LUTION 2 puffs four times a day as needed PROAIR HFA 108 (90 B ASE) MCG/ACT INHALATION AEROSOL SOLUTION ALBUTEROL SULFATE Inactive ZITHROMAX Z-REYNA 250 MG ORAL TABLET 2 today, then 1 daily for 4 d ays ZITHROMAX Z-REYNA 250 MG ORAL TABLET 687048 AZITHROMYCIN Inactive CEFDINIR 300 MG ORAL CAPSULE by mouth twice a day 2010 CEFDINIR 300 MG ORAL CAPSULE 441528 CEFDINIR Inactive CEFDINIR 300 MG ORAL CAPSULE by mouth twice a day 2010 CEFDINIR 300 MG ORAL CAPSULE 327475 CEFDINIR Inactive CEFDINIR 300 MG ORAL CAPSULE by mouth twice a day 2010 CEFDINIR 300 MG ORAL CAPSULE 575945 CEFDINIR Inactive CEFDINIR 300 MG ORAL CAPSULE by mouth twice a day 2011 CEFDINIR 300 MG ORAL CAPSULE 312556 CEFDINIR Inactive ZITHROMAX 250 MG ORAL TABLET 2 po today, then 1 po q days 2-5 20 03/07/07 ZITHROMAX 250 MG ORAL TABLET 966837 AZITHROMYCIN Greer ctive CEFDINIR 300 MG ORAL CAPSULE by mouth twice a day 2011 CEFDINIR 300 MG ORAL CAPSULE 286519 CEFDINIR Inactive PREDNISONE 20 MG ORAL TABLET 2 tabs daily for 3 days, 1 tab daily for 3 days, 1/2 tab daily for 2 days PREDNISONE 20 MG ORAL T ABLET 672027 PREDNISONE Inactive AVELOX 400 MG ORAL TABLET 1 tab by mouth daily AVELOX 400 MG ORAL TABLET 313028 MOXIFLOXACIN HCL Inactive AVELOX 400 MG ORAL TABLET 1 tab by mouth daily AVELOX 400 MG ORAL TABLET 852729 MOXIFLOXACIN HCL Inactive PREDNISONE 20 MG ORAL TABLET Take 3 tabs daily for 3 d ays, 2 tabs daily for 3 days, 1 tab daily for 3 days, 1/2 tab daily for 3 days 11/07 PREDNISONE 20 MG ORAL TABLET 468277 PREDNISONE Inactive LEVAQUIN 500 MG ORAL TABLET take one po QD LEVAQUIN 500 MG ORAL TABLET 267295 LEVOFLOXACIN Inactive AZITHROMYCIN 250 MG ORAL TABLET 2 po qd x 1 day, then 1 po q d x 4 days AZITHROMYCIN 250 MG ORAL TABLET 392816 AZITHROMY GIOVANNI Inactive MEDROL 4 MG ORAL TABLET THERAPY PACK 6 tabs on day 1, 5 tabs on day 2, 4 tabs on day 3, 3 tabs on day 4, 2 tabs on day 5, 1 tab on day 6 2013 MEDROL 4 MG ORAL TABLET THERAPY PACK 709492 METHYLPREDNISOLONE [place] ctive CHERATUSSIN AC 100-10 MG/5ML ORAL SYRUP 5ml po q6hr PRN Cough 20 13/04/14 CHERATUSSIN AC 100-10 MG/5ML ORAL SYRUP 255552 GUAIFENE SIN-CODEINE Inactive TRIAMCINOLONE ACETONIDE 0.1 % EXTERNAL CREAM apply three roger es daily prn rash TRIAMCINOLONE ACETONIDE 0.1 % EXTERNAL CREAM 101 4314 TRIAMCINOLONE ACETONIDE Inactive AZITHROMYCIN 250 MG ORAL TABLET 2 po qd x 1 day, then 1 po q d x 4 days AZITHROMYCIN 250 MG ORAL TABLET 722095 AZITHROMY GIOVANNI Inactive MEDROL 4 MG ORAL TABLET THERAPY PACK 6 pills x 1 day, then 5 pills x 1 day then 4 pills x 1 day, then 3 pills x 1 day, then 2 pills x 1 day, then 1 pill x 1 day, then stop MEDROL 4 MG ORAL TABLET THERAPY PACK 362357 METHYLPREDNISOLONE Inactive AMOXICILLIN 500 MG ORAL CAPSULE 1 tab by mouth 3 times daily x 10 days AMOXICILLIN 500 MG ORAL CAPSULE 648714 AMOXICILL IN Inactive AMOXICILLIN 500 MG ORAL CAPSULE 1 tab by mouth 3 times daily x 10 days AMOXICILLIN 500 MG ORAL CAPSULE 825559 AMOXICILL IN Inactive ZITHROMAX 250 MG ORAL TABLET 2 po today, then 1 po q days 2-5 20 12/08/14 ZITHROMAX 250 MG ORAL TABLET 475211 AZITHROMYCIN Greer ctive AUGMENTIN 875-125 MG ORAL TABLET 1 po BID x 10 days 20 13/01/20 AUGMENTIN 875-125 MG ORAL TABLET 429656 AMOXICILLIN-POT CLAVULANATE Inactive ZITHROMAX Z-REYNA 250 MG ORAL TABLET 2 today, then 1 daily for 4 d ays ZITHROMAX Z-REYNA 250 MG ORAL TABLET 976299 AZITHROMYCIN Inactive ZITHROMAX 250 MG ORAL TABLET 2 po today, then 1 po q days 2-5 20 14/03/21 ZITHROMAX 250 MG ORAL TABLET 339444 AZITHROMYCIN Greer ctive ZITHROMAX Z-REYNA 250 MG ORAL TABLET 2 today, then 1 daily for 4 d ays ZITHROMAX Z-REYNA 250 MG ORAL TABLET 388718 AZITHROMYCIN Inactive CEFDINIR 300 MG ORAL CAPSULE 1 po BID x 10 days 06/21 CEFDINIR 300 MG ORAL CAPSULE 509600 CEFDINIR Inactive ZITHROMAX 250 MG ORAL TABLET 2 po today, then 1 po q days 2-5 20 13/08/10 ZITHROMAX 250 MG ORAL TABLET 295116 AZITHROMYCIN Greer ctive LEVAQUIN 500 MG ORAL TABLET 1 tablet by mouth daily 20 13/09/24 LEVAQUIN 500 MG ORAL TABLET 550441 LEVOFLOXACIN Inactive SINGULAIR 10 MG ORAL TABLET 1 po qday for allergies 20 14/01/12 SINGULAIR 10 MG ORAL TABLET 113117 MONTELUKAST SODIUM Inactive AMOXICILLIN 500 MG ORAL CAPSULE 2 po BID x 10 days 201 09/29/08 AMOXICILLIN 500 MG ORAL CAPSULE 434665 AMOXICILLIN Inactive PREDNISONE 20 MG ORAL TABLET 2 tabs daily for 3 days, 1 tab daily for 3 days, 1/2 tab daily for 2 days PREDNISONE 20 MG ORAL T ABLET 203215 PREDNISONE Inactive ZITHROMAX Z-REYNA 250 MG ORAL TABLET 2 today, then 1 daily for 4 d ays ZITHROMAX Z-REYNA 250 MG ORAL TABLET 625110 AZITHROMYCIN Inactive PREDNISONE 20 MG ORAL TABLET 2 tabs daily for 3 days, 1 tab daily for 3 days, 1/2 tab daily for 2 days PREDNISONE 20 MG ORAL T ABLET 734661 PREDNISONE Inactive ZITHROMAX 250 MG ORAL TABLET 2 po today, then 1 po q days 2-5 20 14/09/04 ZITHROMAX 250 MG ORAL TABLET 457580 AZITHROMYCIN [place] ct[facility] AMOXICILLIN 500 MG ORAL CAPSULE 1 cap by mouth three times a day AMOXICILLIN 500 MG ORAL CAPSULE 407587 AMOXICILLIN Inactive TERBINAFINE HCL 250 MG ORAL TABLET 1 qDay for nail fungus 7 TERBINAFINE HCL 250 MG ORAL TABLET 731180 TERBINAFINE HCL Inact nael AUGMENTIN 875-125 MG ORAL TABLET 1 po BID x 10 days 16/03/22 AUGMENTIN 875-125 MG ORAL TABLET [id number] AMOXICILLIN-POT CLAVULANATE Inactive PREDNISONE 20 MG ORAL TABLET 2 po qd x 5 days PREDNISONE 20 MG ORAL TABLET 975490 PREDNISONE Inactive AZITHROMYCIN 250 MG ORAL TABLET 2 po qd x 1 day, then 1 po q d x 4 days AZITHROMYCIN 250 MG ORAL TABLET 965794 AZITHROMY GIOVANNI Inactive Vital Signs Date Name [...] - Chem istry sodium, serum 139 mmol/L [phone]/03/19 potassium, serum 3.6 mmol/L 3.5-5.2 chloride, serum 100 mmol/L 98-107 carbon dioxide, venous blood 30.3 mmol/L 21.0-32 .0 blood glucose 101 mg/dL 65-110 calcium, serum 9.4 mg/dL 8.5-10.1 urea nitrogen, blood 10 mg/dL 7-18 creatinine, serum 0.96 mg/dL 0.60-1.30 sodium, serum 139 mmol/L [id number] 4896/10/12 potassium, serum 3.8 mmol/L 3.5-5.2 chloride, serum 102 mmol/L 98-107 carbon dioxide, venous blood 29.4 mmol/L 21.0-32 .0 blood glucose 103 mg/dL 65-95 calcium, serum 8.8 mg/dL 8.5-10.1 urea nitrogen, blood 10 mg/dL 7-18 creatinine, serum 0.97 mg/dL 0.60-1.30 Estimated Glomerular Filtration Rate (calc) 62 (?) mL/min/1.73m2 = OR > 60 mL/min Encounters Code Encounter Date Provider Facility CPT-71550 [id number] Vst-Est Level III 11:12:16 CDT Yanet Bess DO [facility] CPT-59670 Level 3 Est. Patient 11:34:49 TEACHER AIDE Perez Mora MD [facility] CPT-50513 Level 4 Est. Patient 09:51:32 TEACHER AIDE Carlton rich MD [facility] CPT-54309 Level 3 Est. Patient 10:26:00 TEACHER AIDE Elise stephenson [facility] CPT-31601 Level 3 Est. Patient 13:35:41 TEACHER AIDE Carlton rich MD [facility] CPT-20288 Level 3 Est. Patient 10:03:52 TEACHER AIDE Carlton rich MD [facility] CPT-09876 Level 3 Est. Patient 12:17:50 CDT Hugo Restrepo MD [facility] CPT-81626 Level 3 Est. Patient 13:42:38 CDT Elise stephenson [facility] CPT-51663 Level 3 Est. Patient 13:23:51 CDT Diya cobian [facility] CPT-38991 Level 3 Est. Patient 14:22:19 TEACHER AIDE Diya cobian [facility] CPT-58335 Level 3 Est. Patient 10:11:46 CDT Carlton rich MD [facility] CPT-71747 Level 3 Est. Patient 17:29:43 CDT Elise Are ll INSULATION PROFESSIONAL [facility] CPT-77029 Level 3 Est. Patient 11:58:06 CDT Elise Are ll [facility] CPT-61588 Level 4 Est. Patient 14:36:51 CDT Carlton rich MD [facility] CPT-74697 Level 3 Est. Patient 18:16:00 TEACHER AIDE Blaine Freeman [facility] CPT-37399 Level 3 Est. Patient 09:45:49 TEACHER AIDE Carlton rich MD [facility] CPT-97164 Level 3 Est. Patient 13:19:20 CDT Carlton rich MD [facility] CPT-35023 Level 3 Est. Patient 13:06:43 CDT Ridge tam DO [facility] CPT-27094 Level 3 Est. Patient 10:03:07 CDT Perez Mora MD [facility] CPT-31651 Level 3 Est. Patient 19:50:35 TEACHER AIDE Carlton rich MD [facility] CPT-32412 Level 4 Est. Patient 18:05:01 TEACHER AIDE Carlton rich MD [facility] CPT-96829 Level 3 Est. Patient 10:45:55 TEACHER AIDE Hugo Restrepo MD [facility] CPT-90268 Level 3 Est. Patient 14:12:49 CDT Griffin lincoln [facility] CPT-19599 Level 3 Est. Patient 17:37:24 CDT Carlton rich MD [facility] CPT-09649 Level 3 Est. Patient 16:51:54 CDT Carlton rich MD [facility] CPT-13523 Level 3 Est. Patient 12:18:11 CDT Hugo Restrepo MD [facility] CPT-55202 Level 3 Est. Patient 11:30:25 CDT Marcy crisostomo MD PhD [facility] CPT-48471 Level 3 Est. Patient 12:00:47 TEACHER AIDE Carlton rich MD [facility] CPT-67430 Level 3 Est. Patient 16:31:06 TEACHER AIDE Carlton rich MD [facility] CPT-87966 Level 3 Est. Patient 16:23:24 TEACHER AIDE Ridge tam [facility] CPT-17488 Level 3 Est. Patient 12:34:12 CDT Carlton rich MD [facility] CPT-03954 Level 2 Est. Patient 15:43:33 CDT Robi armstrong MD [facility] CPT-01771 Level 4 Est. Patient 14:04:44 CDT Carlton rich MD [facility] CPT-37475 Level 3 Est. Patient 05:47:59 CDT Ridge tam [facility] CPT-86425 Level 3 Est. Patient 13:12:53 TEACHER AIDE Carlton rich MD [facility] CPT-84934 Level 3 Est. Patient 14:26:53 CDT Hugo Restrepo MD [facility] Procedures Code Procedure Name Date Entry Date Standard Desc ription CPT-000 Give Appropriate Flu Vaccine 14:14:31 CDT 2 CPT-J1040 Depo Medrol 80 mg (Methyl Prednisolone A cetate) 10:42:44 CDT CPT-J1100 Decadron 8mg (Dexamethasone) 10:42:44 CDT 2 CPT-J0696 Rocephin 1gm Inj Solr 14:32:13 CDT CPT-J1020 Depo Medrol 60 mg (Methyl Prednisolone A cetate) 14:32:13 CDT CPT-J1100 Decadron 6mg (Dexamethasone) 14:32:13 CDT 2 CPT-77537 Hip bilat min 2V w AP pelvis 13:16:20 CDT 2 CPT-51454 Pelvis only 13:07:33 CDT CPT-49803 Spec Collection and Handling Fee 11:25:12 C DT CPT-08552 Fluzone Quadrivalent Intramuscular Suspe nsion 0.5 ML 14:31:55 CDT CPT-11664 Abx/Therapy Injection 13:28:47 TEACHER AIDE CPT-J2930 Solu Medrol 125 mg (Methyl Prednisolone Sodium Succinate) 12:00:47 TEACHER AIDE CPT-15807 Venipuncture Draw Fee 11:33:31 CDT CPT-95293 EKG Trac and Interp 11:21:09 CDT CPT-38970 Chest 2V Frontal and Lat 11:21:09 CDT 12/15 CPT-34332 Venipuncture Draw Fee 08:02:34 CDT CPT-63167 Chest 2V Frontal and Lat 05:47:59 CDT 06/05
--- OUTSIDE RECORDS SUMMARY | 2019-10-08 09:24 | XMS REPORT | Clinical Summary ---
[...] URI 465.9 Inactive Ridge Bess DO Ac kashia upper respiratory infections of unspecified site Body [...] MD Sinusitis ICD-473.9 Inactive Hugo Restrepo MD Sinusitis ICD-473.9 Inactive [...] po q d x 4 days AZITHROMYCIN 03074736908 No Longer Active Ridge Bess DO Active PREDNISONE 20 MG ORAL TABLET two tabs by mouth today, then one tab by mouth days two and three and four PREDNISONE 34263922650 Active Lyndsay Mora MD Active PREDNISONE 20 MG ORAL TABLET 2 po qd x 5 days P REDNISONE 00205072316 No Longer Active Perez Mora MD Active PROAIR HFA 108 (90 BASE) MCG/ACT INHALATION AEROSOL SO LUTION 2 puffs four times a day as needed ALBUTEROL SULFATE 93030587171 No Long er Active Becky FUENTES Active ASPIRIN 81 MG ORAL TABLET 1 po qd ASPIRIN 42088260463 Active Carlton Hu MD Active PREDNISONE 20 MG ORAL TABLET 1 tab twice daily for 3 d ay, then one daily for three days PREDNISONE 08879657822 No Longer Active Carlton Hu MD Active AUGMENTIN 875-125 MG ORAL TABLET 1 po BID x 10 days 20 16/03/22 AMOXICILLIN-POT CLAVULANATE 35508115492 No Longer Active Elise Garcia APRN Active TERBINAFINE HCL 250 MG ORAL TABLET 1 qDay for nail fungus 7 TERBINAFINE HCL 66265369899 No Longer Active Carlton Hu MD A ctive TUSSIONEX PENNKINETIC ER 10-8 MG/5ML ORAL SUSPENSION E XTENDED RELEASE 5ml po q12hr PRN Cough HYDROCOD POLST-CHLORPHEN POLST 71643373298 Active Carlton Hu MD Active AMOXICILLIN 500 MG ORAL CAPSULE 1 cap by mouth three times a day AMOXICILLIN 23626197552 No Longer Active Carlton Hu MD Active ELMIRON 100 MG ORAL CAPSULE 2 tablets in the am and 1 tablet at hs PENTOSAN POLYSULFATE SODIUM 31758059427 No Longer Active Robert jade Hu MD Active MUCINEX D 60-600 MG ORAL TABLET EXTENDED RELEASE 12 HOUR 1 t ab po q am PSEUDOEPHEDRINE-GUAIFENESIN 86984321981 No Longer Act nael Carlton Hu MD Active MUCINEX DM MAXIMUM STRENGTH 60-1200 MG ORAL TABLET EXT ENDED RELEASE 12 HOUR 1 tab po q am DEXTROMETHORPHAN-GUAIFENESIN 26416980841 No Longer Active Carlton Hu MD Active TUSSIONEX PENNKINETIC ER 10-8 MG/5ML ORAL SUSPENSION E XTENDED RELEASE 5ml po q12hr PRN Cough HYDROCOD POLST-CHLORPHEN POLST 5 1319966626 No Longer Active Carlton Hu MD Active POTASSIUM CHLORIDE ER 20 MEQ ORAL TABLET EXTENDED RELE ASE Take 1 by mouth 4 times daily for 7 days POTASSIUM CHLORIDE 64979313897 No Longer Active Carlton Hu MD Active ZITHROMAX 250 MG ORAL TABLET 2 po today, then 1 po q days 2-5 14/09/04 AZITHROMYCIN 92206843490 No Longer Active Elise Garcia APRN Active TUSSIONEX PENNKINETIC ER 10-8 MG/5ML ORAL SUSPENSION E XTENDED RELEASE 5 ml twice a day as needed for cough HYDROCOD POLST-CHLORPH EN POLST 93288501382 No Longer Active Elise Garcia APRN Active MONTELUKAST SODIUM 10 MG ORAL TABLET 1 po daily for Allergy MONTELUKAST SODIUM 63461471963 Active Carlton Hu MD Ac tive TUSSIONEX PENNKINETIC ER 10-8 MG/5ML ORAL SUSPENSION E XTENDED RELEASE 5ml po q12hr PRN Cough HYDROCOD POLST-CHLORPHEN POLST 5 5050219032 No Longer Active Hugo Restrepo MD Active GABAPENTIN 100 MG ORAL CAPSULE 1 po BID for fibromyalgia GABAPENTIN 81999509306 Active Carlton Hu MD Active LYRICA 100 MG ORAL CAPSULE Take 1 tab po BID for fibromyalgia 20 11/08/21 PREGABALIN 91728443742 No Longer Active Elise Garcia COMMERCIAL ART INSTRUCTOR A ctive PREDNISONE 20 MG ORAL TABLET 2 tabs daily for 3 days, 1 tab daily for 3 days, 1/2 tab daily for 2 days PREDNISONE 49383405155 No Longer Active Jillina Frazell COMMERCIAL ART INSTRUCTOR Active TUSSIONEX PENNKINETIC ER 10-8 MG/5ML ORAL SUSPENSION E XTENDED RELEASE 5 mL PO q 12 hrs PRN cough HYDROCOD POLST-CHLORPHEN POLST 976319 94079 No Longer Active Jillina Frazell COMMERCIAL ART INSTRUCTOR Active FLUTICASONE PROPIONATE 50 MCG/ACT NASAL SUSPENSION 2 s prays each nostril daily until bottle is empty FLUTICASONE PROPIONATE 309131719 99 No Longer Active Jillina Frazell COMMERCIAL ART INSTRUCTOR Active ASMANEX 60 METERED DOSES 220 MCG/INH INHALATION AEROSO L POWDER BREATH ACTIVATED 1 puff bid with rinse after MOMETASONE FUROATE 6673271 4102 No Longer Active Jillina Frazell COMMERCIAL ART INSTRUCTOR Active ZITHROMAX Z-REYNA 250 MG ORAL TABLET 2 today, then 1 daily for 4 d ays AZITHROMYCIN 16140233804 No Longer Active Elise Garcia COMMERCIAL ART INSTRUCTOR Active TUSSIONEX PENNKINETIC ER 10-8 MG/5ML ORAL SUSPENSION E XTENDED RELEASE 5ml po q12hr PRN Cough HYDROCOD POLST-CHLORPHEN POLST 5 8095896140 No Longer Active Elise Garcia COMMERCIAL ART INSTRUCTOR Active PREDNISONE 20 MG ORAL TABLET 2 tabs daily for 3 days, 1 tab daily for 3 days, 1/2 tab daily for 2 days PREDNISONE 90451061928 No Longer Active Jillina Frazell COMMERCIAL ART INSTRUCTOR Active AMOXICILLIN 500 MG ORAL CAPSULE 2 po BID x 10 days 201 09/29/08 AMOXICILLIN 37079536693 No Longer Active Jillina Frazell COMMERCIAL ART INSTRUCTOR Act nael SINGULAIR 10 MG ORAL TABLET 1 po qday for allergies 20 14/01/12 MONTELUKAST SODIUM 25397209135 No Longer Active Carlton Hu MD Active LEVAQUIN 500 MG ORAL TABLET 1 tablet by mouth daily 20 13/09/24 LEVOFLOXACIN 05392671621 No Longer Active Carlton Hu MD Acti ve FLUTICASONE PROPIONATE 50 MCG/ACT NASAL SUSPENSION 2 s prays each nostril daily for 2 weeks, then 1 spray each nostril daily. FLUTICASONE PROPIONATE 88873362766 Active Elise Areseema KHAN Active ZITHROMAX 250 MG ORAL TABLET 2 po today, then 1 po q days 2-5 20 13/08/10 AZITHROMYCIN 71890256635 No Longer Active Elise Garcia APRN Active XANAX 0.5 MG ORAL TABLET one tablet by mouth daily prn anxiety 2015 ALPRAZOLAM 68308002060 Active ALFREDO Holly Active CYMBALTA 30 MG ORAL CAPSULE DELAYED RELEASE PARTICLES 1 cap by mouth daily for depression DULOXETINE HCL 83174541879 Active ALFREDO Holly Active CEFDINIR 300 MG ORAL CAPSULE 1 po BID x 10 days CEFDINIR 86736798732 No Longer Active Carlton Hu MD Active ZOCOR 40 MG ORAL TABLET 1 tab by mouth daily SI MVASTATIN 56619159237 No Longer Active Carlton Hu MD Active CYCLOBENZAPRINE HCL 10 MG ORAL TABLET 1 tablet by mouth BID prn had pain CYCLOBENZAPRINE HCL 13430737680 No Longer Active Jayden Hu MD Active LEVOFLOXACIN 500 MG ORAL TABLET 1 tab PO daily x 10 days LEVOFLOXACIN 85917075754 No Longer Active Carlton Hu MD Acti ve PREDNISONE 20 MG ORAL TABLET 3 tab PO qd x 2d, 2 tab P O qd x 2d, 1 tab PO qd x 2d, 1/2 tab PO qd x 2d PREDNISONE 65280596162 No Lo nger Active Carlton Hu MD Active FLUTICASONE PROPIONATE 50 MCG/ACT NASAL SUSPENSION 1 t o 2 sprays each nostril daily FLUTICASONE PROPIONATE 46701888148 No Longer Ac tive Blaine HERNANDEZ Active CHERATUSSIN AC 100-10 MG/5ML ORAL SYRUP 1 tsp by mouth every 4 hours as needed for cough GUAIFENESIN-CODEINE 31370680116 No Longe r Active Blaine HERNANDEZ Active PROMETHAZINE-CODEINE 6.25-10 MG/5ML ORAL SYRUP 1 tsp b y mouth every 6 hours if needed for cough PROMETHAZINE-CODEINE 35077118242 No Longer Active Blaine HERNANDEZ Active CHERATUSSIN AC 100-10 MG/5ML ORAL SYRUP 1 tsp by mouth every 4 hours as needed for cough GUAIFENESIN-CODEINE 81733762477 No Longe r Active Blaine HERNANDEZ Active ZITHROMAX Z-REYNA 250 MG ORAL TABLET 2 today, then 1 daily for 4 d ays AZITHROMYCIN 22198368399 No Longer Active Columba Raida Act nael ZITHROMAX 250 MG ORAL TABLET 2 po today, then 1 po q days 2-5 20 14/03/21 AZITHROMYCIN 47847741310 No Longer Active Carlton Hu MD Active ZITHROMAX Z-REYNA 250 MG ORAL TABLET 2 today, then 1 daily for 4 d ays AZITHROMYCIN 70269644780 No Longer Active Columba Raida Act nael AUGMENTIN 875-125 MG ORAL TABLET 1 po BID x 10 days 13/01/20 AMOXICILLIN-POT CLAVULANATE 33009919769 No Longer Active Diya De Guzman APRN Active ZITHROMAX 250 MG ORAL TABLET 2 po today, then 1 po q days 2-5 20 12/08/14 AZITHROMYCIN 17961273538 No Longer Active Carlton Hu MD Active TRAMADOL HCL 50 MG ORAL TABLET 1 po tid with ES Tylenol TRAMADOL HCL 96348736312 Active Adrienne Langeum LEADED GLASS INSTALLER Active PREMARIN 0.625 MG ORAL TABLET TAKE 1 TAB BY MOUTH DAILY ESTROGENS CONJUGATED 36506486267 No Longer Active Ridge Bess DO A ctive CYMBALTA 30 MG ORAL CAPSULE DELAYED RELEASE PARTICLES 1 cap by mouth daily DULOXETINE HCL 95825890868 No Longer Active Ridge Ya ee DO Active AMOXICILLIN 500 MG ORAL CAPSULE 1 tab by mouth 3 times daily x 10 days AMOXICILLIN 55816657840 No Longer Active Carlton bustamante MD Active AMOXICILLIN 500 MG ORAL CAPSULE 1 tab by mouth 3 times daily x 10 days AMOXICILLIN 33075182502 No Longer Active Carlton bustamante MD Active PROMETHAZINE-CODEINE 6.25-10 MG/5ML ORAL SYRUP 1 tsp b y mouth every 8 hours prn cough PROMETHAZINE-CODEINE 20216896674 No Longer Acti ve Carlton Hu MD Active MEDROL 4 MG ORAL TABLET THERAPY PACK 6 pills x 1 day, then 5 pills x 1 day then 4 pills x 1 day, then 3 pills x 1 day, then 2 pills x 1 day, then 1 pill x 1 day, then stop METHYLPREDNISOLONE 67454429688 No Long er Active Perez Mora MD Active AZITHROMYCIN 250 MG ORAL TABLET 2 po qd x 1 day, then 1 po q d x 4 days AZITHROMYCIN 10279014349 No Longer Active Perez Ambriz MD Active SYMBICORT 160-4.5 MCG/ACT INHALATION AEROSOL 2 puffs bid wit h rinse after BUDESONIDE-FORMOTEROL FUMARATE 71546003844 N o Longer Active Perez Mora MD Active LYRICA 75 MG ORAL CAPSULE TAKE 1 CAPSULE BY MOUTH TWICE DAILY PREGABALIN 68939964771 No Longer Active Carlton Hu MD Acti ve TOPAMAX 25 MG ORAL TABLET 1 qHS x 1 week, then 1 BID x 1 week, then 1 qAM and 2 qHS x 1 week, then 2 BID (migraine prevention) T OPIRAMATE 61707560081 No Longer Active Jerica FUENTES Active TOPAMAX 50 MG ORAL TABLET take 1 tab po BID for migraines. 07/02 TOPIRAMATE 81119502384 No Longer Active Jerica FUENTES Active TOPAMAX 100 MG ORAL TABLET Take 1 tablet po bid TO PIRAMATE 69375611170 Active ALFREDO Holly Active TRIAMCINOLONE ACETONIDE 0.1 % EXTERNAL CREAM apply three roger es daily prn rash TRIAMCINOLONE ACETONIDE 06543186131 No Longer Active Carlton Hu MD Active PAXIL 40 MG ORAL TABLET take 1 tab po qday for depression 0 PAROXETINE HCL 78565993384 Active ALFREDO Holly Active CHERATUSSIN AC 100-10 MG/5ML ORAL SYRUP 5ml po q6hr PRN Cough 20 13/04/14 GUAIFENESIN-CODEINE 20886439853 No Longer Active Carlton Hu MD Active MEDROL 4 MG ORAL TABLET THERAPY PACK 6 tabs on day 1, 5 tabs on day 2, 4 tabs on day 3, 3 tabs on day 4, 2 tabs on day 5, 1 tab on day 6 2013 METHYLPREDNISOLONE 75601114691 No Longer Active Perez Mora MD Active AZITHROMYCIN 250 MG ORAL TABLET 2 po qd x 1 day, then 1 po q d x 4 days AZITHROMYCIN 34266818445 No Longer Active Perez Ambriz MD Active PROPRANOLOL HCL 60 MG ORAL TABLET 1 PO Q D PROPRANOLOL HCL 33898046133 No Longer Active Perez Mora MD Activ e CHERATUSSIN AC 100-10 MG/5ML ORAL SYRUP take one tsp po Q 6h ours prn cough GUAIFENESIN-CODEINE 05432486359 No Longer Active Zia Mora MD Active AUGMENTIN 875-125 MG ORAL TABLET 1 tab by mouth twice daily with food AMOXICILLIN-POT CLAVULANATE 83533474051 No Longer Act nael Mora MD Active CHERATUSSIN AC 100-10 MG/5ML ORAL SYRUP 1 tsp by mouth every 4 hours as needed for cough GUAIFENESIN-CODEINE 23229641349 No Longe r Active Hugo Restrepo MD Active ACETAMINOPHEN-CODEINE #3 300-30 MG ORAL TABLET 1 PO Q 4-6 HRS [place] ACETAMINOPHEN-CODEINE 69380480848 No Longer Active Hugo Restrepo MD Active LEVAQUIN 500 MG ORAL TABLET take one po QD LEVO FLOXACIN 01958487523 No Longer Active Griffin HERNANDEZ Active PREDNISONE 20 MG ORAL TABLET Take 3 tabs daily for 3 d ays, 2 tabs daily for 3 days, 1 tab daily for 3 days, 1/2 tab daily for 3 days 11/07 PREDNISONE 91051813792 No Longer Active Carlton Hu MD Acti ve AVELOX 400 MG ORAL TABLET 1 tab by mouth daily MOXIFLOXACIN HCL 02976769082 No Longer Active Carlton Hu MD Active CHERATUSSIN AC 100-10 MG/5ML ORAL SYRUP 1 tsp by mouth every 4 hours as needed for cough GUAIFENESIN-CODEINE 99616252787 No Longe r Active Hugo Restrepo MD Active AVELOX 400 MG ORAL TABLET 1 tab by mouth daily MOXIFLOXACIN HCL 39558359607 No Longer Active Marcy De La Rosa MD PhD Active TERBINAFINE HCL 250 MG ORAL TABLET 1 qDay T ERBINAFINE HCL 26327306058 No Longer Active Marcy De La Rosa MD PhD Active CHERATUSSIN AC 100-10 MG/5ML ORAL SYRUP 1 tsp by mouth every 4 hours as needed for cough GUAIFENESIN-CODEINE 02572750126 No Longe r Active Marcy De La Rosa MD PhD Active AVELOX 400 MG ORAL TABLET 1 tab by mouth daily MOXIFLOXACIN HCL 06642308631 No Longer Active Marcy C Madril MD PhD Active HYDROCODONE-ACETAMINOPHEN 5-325 MG ORAL TABLET 1 po q 6hr PRN co ugh HYDROCODONE-ACETAMINOPHEN 53238427085 No Longer Active Marcy De La Rosa MD PhD Active PREDNISONE 20 MG ORAL TABLET 2 tabs daily for 3 days, 1 tab daily for 3 days, 1/2 tab daily for 2 days PREDNISONE 31056371076 No Longer Active Carlton Hu MD Active CEFDINIR 300 MG ORAL CAPSULE by mouth twice a day 2011 CEFDINIR 31394902735 No Longer Active Carlton Hu MD Acti ve HYDROCHLOROTHIAZIDE 25 MG ORAL TABLET 1 TAB PO DAILY HYDROCHLOROTHIAZIDE 13923833736 Active Adrienne Galvez LEADED GLASS INSTALLER Active ACETAMINOPHEN-CODEINE #3 300-30 MG ORAL TABLET 1 tablet po q 4-6 hrs prn pain ACETAMINOPHEN-CODEINE 49367634276 No Longer Active Ridge Bess DO Active ZITHROMAX 250 MG ORAL TABLET 2 po today, then 1 po q days 2-5 20 03/07/07 AZITHROMYCIN 88026740273 No Longer Active Carlton Hu MD Active CHERATUSSIN AC 100-10 MG/5ML ORAL SYRUP take 1 tsp po q4-6 h ours prn cough GUAIFENESIN-CODEINE 09401511157 No Longer Active Jayden Hu MD Active ACETAMINOPHEN-CODEINE #3 300-30 MG ORAL TABLET 1 PO Q 4-6 HR PRN PAIN ACETAMINOPHEN-CODEINE 07672598987 No Longer Active Da vid Lyndsay Hu MD Active LORTAB 7.5-500 MG/15ML ORAL ELIXIR 7.5 ml po q 4 hour prn cough HYDROCODONE-ACETAMINOPHEN 38952592790 No Longer Active Carlton Hu MD Active PREDNISONE 20 MG ORAL TABLET 1 po bid 3 days, then 1 po q day 3 days PREDNISONE 80491072716 No Longer Active Carlton Hu MD Active CEFDINIR 300 MG ORAL CAPSULE by mouth twice a day 2011 CEFDINIR 40651637715 No Longer Active Carlton Hu MD Acti ve CEFDINIR 300 MG ORAL CAPSULE by mouth twice a day 2010 CEFDINIR 81785922324 No Longer Active Carlton Hu MD Acti ve CEFDINIR 300 MG ORAL CAPSULE by mouth twice a day 2010 CEFDINIR 73642928815 No Longer Active Carlton Hu MD Acti ve TESSALON PERLES 100 MG ORAL CAPSULE 1 tablet by mouth 3 times daily as needed for cough BENZONATATE 21747872131 No Longer Active Carlton Hu MD Active CEFDINIR 300 MG ORAL CAPSULE by mouth twice a day 2010 CEFDINIR 11683232929 No Longer Active Carlton Hu MD Acti ve ZITHROMAX Z-REYNA 250 MG ORAL TABLET 2 today, then 1 daily for 4 d ays AZITHROMYCIN 02601902302 No Longer Active Hugo Restrepo MD Active TESSALON PERLES 100 MG ORAL CAPSULE 1 tablet by mouth 3 times daily as needed for cough TESSALON PERLES 100 MG ORAL CAPSULE 46474 7 BENZONATATE Inactive PREDNISONE 20 MG ORAL TABLET 1 po bid 3 days, then 1 po q day 3 days PREDNISONE 20 MG ORAL TABLET 616637 PREDNISONE [place] ctive LORTAB 7.5-500 MG/15ML ORAL ELIXIR 7.5 [...] cough CHERATUSSIN AC 100-10 MG/5ML ORAL SYRUP 554208 GUAIFENESIN-CODEINE Inactive ACETAMINOPHEN-CODEINE #3 300-30 MG ORAL TABLET 1 tablet po q 4-6 hrs prn pain ACETAMINOPHEN-CODEINE #3 300-30 MG ORAL TABLET ACETAMINOPHEN-CODEINE Inactive HYDROCODONE-ACETAMINOPHEN 5-325 MG ORAL TABLET 1 po q 6hr PRN co ugh HYDROCODONE-ACETAMINOPHEN 5-325 MG ORAL TABLET 569036 HYDROCODONE-ACETAMINOPHEN Inactive AVELOX 400 MG ORAL TABLET 1 tab by mouth daily AVELOX 400 MG ORAL TABLET 020592 MOXIFLOXACIN HCL Inactive CHERATUSSIN AC 100-10 MG/5ML ORAL SYRUP 1 tsp by mouth every 4 hours as needed for cough CHERATUSSIN AC 100-10 MG/5ML ORAL SYRUP 9 42722 GUAIFENESIN-CODEINE Inactive TERBINAFINE HCL 250 MG ORAL TABLET 1 qDay 07/08 TERBINAFINE HCL 250 MG ORAL TABLET 968028 TERBINAFINE HCL Inactive CHERATUSSIN AC 100-10 MG/5ML ORAL SYRUP 1 tsp by mouth every 4 hours as needed for cough CHERATUSSIN AC 100-10 MG/5ML ORAL SYRUP 9 66466 GUAIFENESIN-CODEINE Inactive ACETAMINOPHEN-CODEINE #3 300-30 MG ORAL TABLET 1 PO Q 4-6 HRS [place] PAIN ACETAMINOPHEN-CODEINE #3 300-30 MG ORAL TABLET ACETAMINOPHEN-CODEINE Inactive CHERATUSSIN AC 100-10 MG/5ML ORAL SYRUP 1 tsp by mouth every 4 hours as needed for cough CHERATUSSIN AC 100-10 MG/5ML ORAL SYRUP 9 24802 GUAIFENESIN-CODEINE Inactive AUGMENTIN 875-125 MG ORAL TABLET 1 tab by mouth twice daily with food AUGMENTIN 875-125 MG ORAL TABLET 463280 AMOXICIL MADELINE-POT CLAVULANATE Inactive CHERATUSSIN AC 100-10 MG/5ML ORAL SYRUP take one tsp po Q 6h ours prn cough CHERATUSSIN AC 100-10 MG/5ML ORAL SYRUP 594922 GUAIFENESIN-CODEINE Inactive PROPRANOLOL HCL 60 MG ORAL TABLET 1 PO Q D PROPRANOLOL HCL 60 MG ORAL TABLET 962879 PROPRANOLOL HCL Inactive TOPAMAX 50 MG ORAL TABLET take 1 tab po BID for migraines. 07/02 TOPAMAX 50 MG ORAL TABLET 258093 TOPIRAMATE Inacti ve TOPAMAX 25 MG ORAL TABLET 1 qHS x 1 week, then 1 BID x 1 week, then 1 qAM and 2 qHS x 1 week, then 2 BID (migraine prevention) TOPAMAX 25 MG ORAL TABLET 476260 TOPIRAMATE Inactive LYRICA 75 MG ORAL CAPSULE TAKE 1 CAPSULE BY MOUTH TWICE DAILY LYRICA 75 MG ORAL CAPSULE PREGABALIN Inactive SYMBICORT 160-4.5 MCG/ACT INHALATION AEROSOL 2 puffs bid wit h rinse after SYMBICORT 160-4.5 MCG/ACT INHALATION AEROSOL BUDESONIDE- FORMOTEROL FUMARATE Inactive PROMETHAZINE-CODEINE 6.25-10 MG/5ML ORAL SYRUP 1 tsp b y mouth every 8 hours prn cough PROMETHAZINE-CODEINE 6.25-10 MG/ 5ML ORAL SYRUP 380825 PROMETHAZINE-CODEINE Inactive CYMBALTA 30 MG ORAL CAPSULE DELAYED RELEASE PARTICLES 1 cap by mouth daily CYMBALTA 30 MG ORAL CAPSULE DELAYED RELE ASE PARTICLES 416210 DULOXETINE HCL Inactive PREMARIN 0.625 MG ORAL TABLET TAKE 1 TAB BY MOUTH DAILY PREMARIN 0.625 MG ORAL TABLET ESTROGENS CONJUGATED Inactive CHERATUSSIN AC 100-10 MG/5ML ORAL SYRUP 1 tsp by mouth every 4 hours as needed for cough CHERATUSSIN AC 100-10 MG/5ML ORAL SYRUP 9 89740 GUAIFENESIN-CODEINE Inactive PROMETHAZINE-CODEINE 6.25-10 MG/5ML ORAL SYRUP 1 tsp b y mouth every 6 hours if needed for cough PROMETHAZINE-CODEINE 6.25-10 MG/5ML ORAL SYRUP 310811 PROMETHAZINE-CODEINE Inactive CHERATUSSIN AC 100-10 MG/5ML ORAL SYRUP 1 tsp by mouth every 4 hours as needed for cough CHERATUSSIN AC 100-10 MG/5ML ORAL SYRUP 9 67350 GUAIFENESIN-CODEINE Inactive FLUTICASONE PROPIONATE 50 MCG/ACT NASAL SUSPENSION 1 t o 2 sprays each nostril daily FLUTICASONE PROPIONATE 50 MCG/AC T NASAL SUSPENSION 7914362 FLUTICASONE PROPIONATE Inactive PREDNISONE 20 MG ORAL TABLET 3 tab PO qd x 2d, 2 tab P O qd x 2d, 1 tab PO qd x 2d, 1/2 tab PO qd x 2d PREDNISONE 20 MG ORAL TAB LET 384663 PREDNISONE Inactive LEVOFLOXACIN 500 MG ORAL TABLET 1 tab PO daily x 10 days LEVOFLOXACIN 500 MG ORAL TABLET 455006 LEVOFLOXACIN Inactive CYCLOBENZAPRINE HCL 10 MG ORAL TABLET 1 tablet by mouth BID prn had pain CYCLOBENZAPRINE HCL 10 MG ORAL TABLET 596309 CYCLOBENZAPRINE HCL Inactive ZOCOR 40 MG ORAL TABLET 1 tab by mouth daily 4 ZOCOR 40 MG ORAL TABLET 071732 SIMVASTATIN Inactive TUSSIONEX PENNKINETIC ER 10-8 MG/5ML [...] FLUTICASONE PROPIO EFE 50 MCG/ACT NASAL SUSPENSION 2459576 FLUTICASONE PROPIONATE Inactive TUSSIONEX PENNKINETIC ER 10-8 [...] three days PREDNISONE 20 MG ORAL TABLET 839170 PREDNIS ONE Inactive PROAIR HFA 108 (90 BASE) MCG/ACT INHALATION AEROSOL SO LUTION 2 puffs four times a day as needed PROAIR HFA 108 (90 B ASE) MCG/ACT INHALATION AEROSOL SOLUTION ALBUTEROL SULFATE Inactive ZITHROMAX Z-REYNA 250 MG ORAL TABLET 2 today, then 1 daily for 4 d ays ZITHROMAX Z-REYNA 250 MG ORAL TABLET 374909 AZITHROMYCIN Inactive CEFDINIR 300 MG ORAL CAPSULE by mouth twice a day 2010 CEFDINIR 300 MG ORAL CAPSULE 743497 CEFDINIR Inactive CEFDINIR 300 MG ORAL CAPSULE by mouth twice a day 2010 CEFDINIR 300 MG ORAL CAPSULE 814426 CEFDINIR Inactive CEFDINIR 300 MG ORAL CAPSULE by mouth twice a day 2010 CEFDINIR 300 MG ORAL CAPSULE 751423 CEFDINIR Inactive CEFDINIR 300 MG ORAL CAPSULE by mouth twice a day 2011 CEFDINIR 300 MG ORAL CAPSULE 375041 CEFDINIR Inactive ZITHROMAX 250 MG ORAL TABLET 2 po today, then 1 po q days 2-5 20 03/07/07 ZITHROMAX 250 MG ORAL TABLET 609273 AZITHROMYCIN Greer ctive CEFDINIR 300 MG ORAL CAPSULE by mouth twice a day 2011 CEFDINIR 300 MG ORAL CAPSULE 570788 CEFDINIR Inactive PREDNISONE 20 MG ORAL TABLET 2 tabs daily for 3 days, 1 tab daily for 3 days, 1/2 tab daily for 2 days PREDNISONE 20 MG ORAL T ABLET 812256 PREDNISONE Inactive AVELOX 400 MG ORAL TABLET 1 tab by mouth daily AVELOX 400 MG ORAL TABLET 905868 MOXIFLOXACIN HCL Inactive AVELOX 400 MG ORAL TABLET 1 tab by mouth daily AVELOX 400 MG ORAL TABLET 106977 MOXIFLOXACIN HCL Inactive PREDNISONE 20 MG ORAL TABLET Take 3 tabs daily for 3 d ays, 2 tabs daily for 3 days, 1 tab daily for 3 days, 1/2 tab daily for 3 days 11/07 PREDNISONE 20 MG ORAL TABLET 429848 PREDNISONE Inactive LEVAQUIN 500 MG ORAL TABLET take one po QD LEVAQUIN 500 MG ORAL TABLET 155296 LEVOFLOXACIN Inactive AZITHROMYCIN 250 MG ORAL TABLET 2 po qd x 1 day, then 1 po q d x 4 days AZITHROMYCIN 250 MG ORAL TABLET 031929 AZITHROMY GIOVANNI Inactive MEDROL 4 MG ORAL TABLET THERAPY PACK 6 tabs on day 1, 5 tabs on day 2, 4 tabs on day 3, 3 tabs on day 4, 2 tabs on day 5, 1 tab on day 6 2013 MEDROL 4 MG ORAL TABLET THERAPY PACK 782129 METHYLPREDNISOLONE Greer ctive CHERATUSSIN AC 100-10 MG/5ML ORAL SYRUP 5ml po q6hr PRN Cough 20 13/04/14 CHERATUSSIN AC 100-10 MG/5ML ORAL SYRUP 904503 GUAIFENE SIN-CODEINE Inactive TRIAMCINOLONE ACETONIDE 0.1 % EXTERNAL CREAM apply three roger es daily prn rash TRIAMCINOLONE ACETONIDE 0.1 % EXTERNAL CREAM 101 4314 TRIAMCINOLONE ACETONIDE Inactive AZITHROMYCIN 250 MG ORAL TABLET 2 po qd x 1 day, then 1 po q d x 4 days AZITHROMYCIN 250 MG ORAL TABLET 769052 AZITHROMY GIOVANNI Inactive MEDROL 4 MG ORAL TABLET THERAPY PACK 6 pills x 1 day, then 5 pills x 1 day then 4 pills x 1 day, then 3 pills x 1 day, then 2 pills x 1 day, then 1 pill x 1 day, then stop MEDROL 4 MG ORAL TABLET THERAPY PACK 076735 METHYLPREDNISOLONE Inactive AMOXICILLIN 500 MG ORAL CAPSULE 1 tab by mouth 3 times daily x 10 days AMOXICILLIN 500 MG ORAL CAPSULE 740226 AMOXICILL IN Inactive AMOXICILLIN 500 MG ORAL CAPSULE 1 tab by mouth 3 times daily x 10 days AMOXICILLIN 500 MG ORAL CAPSULE 329755 AMOXICILL IN Inactive ZITHROMAX 250 MG ORAL TABLET 2 po today, then 1 po q days 2-5 20 12/08/14 ZITHROMAX 250 MG ORAL TABLET 335274 AZITHROMYCIN Greer ctive AUGMENTIN 875-125 MG ORAL TABLET 1 po BID x 10 days 20 13/01/20 AUGMENTIN 875-125 MG ORAL TABLET 418011 AMOXICILLIN-POT CLAVULANATE Inactive ZITHROMAX Z-REYNA 250 MG ORAL TABLET 2 today, then 1 daily for 4 d ays ZITHROMAX Z-REYNA 250 MG ORAL TABLET 911260 AZITHROMYCIN Inactive ZITHROMAX 250 MG ORAL TABLET 2 po today, then 1 po q days 2-5 20 14/03/21 ZITHROMAX 250 MG ORAL TABLET 673219 AZITHROMYCIN Greer ctive ZITHROMAX Z-REYNA 250 MG ORAL TABLET 2 today, then 1 daily for 4 d ays ZITHROMAX Z-REYNA 250 MG ORAL TABLET 460198 AZITHROMYCIN Inactive CEFDINIR 300 MG ORAL CAPSULE 1 po BID x 10 days 06/21 CEFDINIR 300 MG ORAL CAPSULE 548279 CEFDINIR Inactive ZITHROMAX 250 MG ORAL TABLET 2 po today, then 1 po q days 2-5 20 13/08/10 ZITHROMAX 250 MG ORAL TABLET 633478 AZITHROMYCIN Greer ctive LEVAQUIN 500 MG ORAL TABLET 1 tablet by mouth daily 20 13/09/24 LEVAQUIN 500 MG ORAL TABLET 618548 LEVOFLOXACIN Inactive SINGULAIR 10 MG ORAL TABLET 1 po qday for allergies 20 14/01/12 SINGULAIR 10 MG ORAL TABLET [id number] MONTELUKAST SODIUM Inactive AMOXICILLIN 500 MG ORAL CAPSULE 2 po BID x 10 days 201 09/29/08 AMOXICILLIN 500 MG ORAL CAPSULE 989452 AMOXICILLIN Inactive PREDNISONE 20 MG ORAL TABLET 2 tabs daily for 3 days, 1 tab daily for 3 days, 1/2 tab daily for 2 days PREDNISONE 20 MG ORAL T ABLET 667224 PREDNISONE Inactive ZITHROMAX Z-REYNA 250 MG ORAL TABLET 2 today, then 1 daily for 4 d ays ZITHROMAX Z-REYNA 250 MG ORAL TABLET 967524 AZITHROMYCIN Inactive PREDNISONE 20 MG ORAL TABLET 2 tabs daily for 3 days, 1 tab daily for 3 days, 1/2 tab daily for 2 days PREDNISONE 20 MG ORAL T ABLET 033971 PREDNISONE Inactive ZITHROMAX 250 MG ORAL TABLET 2 po today, then 1 po q days 2-5 20 14/09/04 ZITHROMAX 250 MG ORAL TABLET 117366 AZITHROMYCIN [place] ctive AMOXICILLIN 500 MG ORAL CAPSULE 1 cap by mouth three times a day AMOXICILLIN 500 MG ORAL CAPSULE 320240 AMOXICILLIN Inactive TERBINAFINE HCL 250 MG ORAL TABLET 1 qDay for nail fungus 7 TERBINAFINE HCL 250 MG ORAL TABLET 031679 TERBINAFINE HCL Inact nael AUGMENTIN 875-125 MG ORAL TABLET 1 po BID x 10 days 16/03/22 AUGMENTIN 875-125 MG ORAL TABLET 752786 AMOXICILLIN-POT CLAVULANATE Inactive PREDNISONE 20 MG ORAL TABLET 2 po qd x 5 days PREDNISONE 20 MG ORAL TABLET 212040 PREDNISONE Inactive AZITHROMYCIN 250 MG ORAL TABLET 2 po qd x 1 day, then 1 po q d x 4 days AZITHROMYCIN 250 MG ORAL TABLET 092311 AZITHROMY GIOVANNI Inactive Vital Signs Date Name [...] - Chem istry sodium, serum 139 mmol/L [phone]/03/19 potassium, serum 3.6 mmol/L 3.5-5.2 chloride, serum 100 mmol/L 98-107 carbon dioxide, venous blood 30.3 mmol/L 21.0-32 .0 blood glucose 101 mg/dL 65-110 calcium, serum 9.4 mg/dL 8.5-10.1 urea nitrogen, blood 10 mg/dL 7-18 creatinine, serum 0.96 mg/dL 0.60-1.30 sodium, serum 139 mmol/L [phone]/10/12 potassium, serum 3.8 mmol/L 3.5-5.2 chloride, serum 102 mmol/L 98-107 carbon dioxide, venous blood 29.4 mmol/L 21.0-32 .0 blood glucose 103 mg/dL 65-95 calcium, serum 8.8 mg/dL 8.5-10.1 urea nitrogen, blood 10 mg/dL 7-18 creatinine, serum 0.97 mg/dL 0.60-1.30 Estimated Glomerular Filtration Rate (calc) 62 (?) mL/min/1.73m2 = OR > 60 mL/min Encounters Code Encounter Date Provider Facility CPT-32049 [id number] Vst-Est Level III 11:12:16 CDT Yanet Bess DO [facility]-78896 Level 3 Est. Patient 11:34:49 BRANCH SERVICE REPRESENTATIVE Perez Mora MD [facility] CPT-08408 Level 4 Est. Patient 09:51:32 BRANCH SERVICE REPRESENTATIVE Carlton rich MD [facility]-93895 Level 3 Est. Patient 10:26:00 BRANCH SERVICE REPRESENTATIVE Elise stephenson [facility]-47689 Level 3 Est. Patient 13:35:41 BRANCH SERVICE REPRESENTATIVE Carlton rich MD [facility]-00661 Level 3 Est. Patient 10:03:52 BRANCH SERVICE REPRESENTATIVE Carlton rich MD [facility]-22577 Level 3 Est. Patient 12:17:50 CDT Hugo Restrepo MD [facility] CPT-09802 Level 3 Est. Patient 13:42:38 CDT Elise stephenson [facility] CPT-47678 Level 3 Est. Patient 13:23:51 CDT Diya cobian [facility]-99127 Level 3 Est. Patient 14:22:19 BRANCH SERVICE REPRESENTATIVE Diya cobian [facility] CPT-00237 Level 3 Est. Patient 10:11:46 CDT Carlton rich MD [facility] CPT-26911 Level 3 Est. 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 Patient 14:36:51 CDT Carlton rich MD [facility] CPT-93648 Level 3 Est. Patient 18:16:00 BRANCH SERVICE REPRESENTATIVE Blaine Freeman [facility] CPT-95128 Level 3 Est. Patient 09:45:49 BRANCH SERVICE REPRESENTATIVE Carlton rich MD [facility]-10774 Level 3 Est. Patient 13:19:20 CDT Carlton rich MD [facility]-39908 Level 3 Est. Patient 13:06:43 CDT Ridge tam DO [facility] CPT-62620 Level 3 Est. Patient 10:03:07 CDT Perez Mora MD [facility] CPT-04041 Level 3 Est. Patient 19:50:35 BRANCH SERVICE REPRESENTATIVE Carlton rich MD [facility] CPT-73595 Level 4 Est. Patient 18:05:01 BRANCH SERVICE REPRESENTATIVE Carlton rich MD [facility] CPT-83202 Level 3 Est. Patient 10:45:55 BRANCH SERVICE REPRESENTATIVE Huog Restrepo MD [facility] CPT-51460 Level 3 Est. Patient 14:12:49 CDT Griffin lincoln [facility] CPT-56055 Level 3 Est. Patient 17:37:24 CDT Carlton rich MD [facility]-23500 Level 3 Est. Patient 16:51:54 CDT Carlton rich MD [facility]-51269 Level 3 Est. Patient 12:18:11 CDT Hugo Restrepo MD [facility] CPT-67234 Level 3 Est. Patient 11:30:25 CDT Marcy crisostomo MD PhD [facility] CPT-15445 Level 3 Est. Patient 12:00:47 BRANCH SERVICE REPRESENTATIVE Carlton rich MD [facility] CPT-37288 Level 3 Est. Patient 16:31:06 BRANCH SERVICE REPRESENTATIVE Carlton rich MD [facility] CPT-38237 Level 3 Est. Patient 16:23:24 BRANCH SERVICE REPRESENTATIVE Ridge tam [facility] CPT-66002 Level 3 Est. Patient 12:34:12 CDT Carlton rich MD [facility] CPT-87746 Level 2 Est. Patient 15:43:33 CDT Robi armstrong MD [facility] CPT-50688 Level 4 Est. Patient 14:04:44 CDT Carlton rich MD [facility] CPT-52042 Level 3 Est. Patient 05:47:59 CDT Ridge tam [facility] CPT-14006 Level 3 Est. Patient 13:12:53 BRANCH SERVICE REPRESENTATIVE Carlton rich MD [facility] CPT-70512 Level 3 Est. Patient 14:26:53 CDT Hugo Restrepo MD [facility] Procedures Code Procedure Name Date Entry Date Standard Desc ription CPT-000 Give Appropriate Flu Vaccine 14:14:31 CDT CPT-J1040 Depo Medrol 80 mg (Methyl Prednisolone A cetate) 10:42:44 CDT CPT-J1100 Decadron 8mg (Dexamethasone) 10:42:44 CDT 2 CPT-J0696 Rocephin 1gm Inj Solr 14:32:13 CDT CPT-J1020 Depo Medrol 60 mg (Methyl Prednisolone A cetate) 14:32:13 CDT CPT-J1100 Decadron 6mg (Dexamethasone) 14:32:13 CDT 2 CPT-54797 Hip bilat min 2V w AP pelvis 13:16:20 CDT 2 CPT-37014 Pelvis only 13:07:33 CDT CPT-96253 Spec Collection and Handling Fee 11:25:12 C DT CPT-10818 Fluzone Quadrivalent Intramuscular Suspe nsion 0.5 ML 14:31:55 CDT CPT-67804 Abx/Therapy Injection 13:28:47 BRANCH SERVICE REPRESENTATIVE CPT-J2930 Solu Medrol 125 mg (Methyl Prednisolone Sodium Succinate) 12:00:47 BRANCH SERVICE REPRESENTATIVE CPT-47464 Venipuncture Draw Fee 11:33:31 CDT CPT-66053 EKG Trac and Interp 11:21:09 CDT CPT-72016 Chest 2V Frontal and Lat 11:21:09 CDT 12/15 CPT-82353 Venipuncture Draw Fee 08:02:34 CDT CPT-31205 Chest 2V Frontal and Lat 05:47:59 CDT 06/05
--- OUTSIDE RECORDS SUMMARY | 2019-10-08 09:24 | XMS REPORT | Clinical Summary ---
Author Author Caitlin, Juliana Martinez Organization [facility] Address Unknown Phone Unavailable Allergies, [...] URI 465.9 Inactive Ridge Bess DO Ac [place] upper respiratory infections of unspecified site Body [...] po q d x 4 days AZITHROMYCIN [id number] No Longer Active Ridge Bess DO Active PREDNISONE 20 MG ORAL TABLET two tabs by mouth today, then one tab by mouth days two and three and four PREDNISONE 95738682331 Active Lyndsay Mora MD Active PREDNISONE 20 MG ORAL TABLET 2 po qd x 5 days P REDNISONE 14096630444 No Longer Active Perez Mora MD Active PROAIR HFA 108 (90 BASE) MCG/ACT INHALATION AEROSOL SO LUTION 2 puffs four times a day as needed ALBUTEROL SULFATE 13846762527 No Long er Active Becky FUENTES Active ASPIRIN 81 MG ORAL TABLET 1 po qd ASPIRIN 53645886206 Active Carlton Hu MD Active PREDNISONE 20 MG ORAL TABLET 1 tab twice daily for 3 d ay, then one daily for three days PREDNISONE 17218692793 No Longer Active Carlton Hu MD Active AUGMENTIN 875-125 MG ORAL TABLET 1 po BID x 10 days 20 16/03/22 AMOXICILLIN-POT CLAVULANATE 36951551316 No Longer Active Elise Garcia APRN Active TERBINAFINE HCL 250 MG ORAL TABLET 1 qDay for nail fungus 7 TERBINAFINE HCL 85730588295 No Longer Active Carlton Hu MD A ctive TUSSIONEX PENNKINETIC ER 10-8 MG/5ML ORAL SUSPENSION E XTENDED RELEASE 5ml po q12hr PRN Cough HYDROCOD POLST-CHLORPHEN POLST 19028699466 Active Carlton Hu MD Active AMOXICILLIN 500 MG ORAL CAPSULE 1 cap by mouth three times a day AMOXICILLIN 21968961606 No Longer Active Carlton Hu MD Active ELMIRON 100 MG ORAL CAPSULE 2 tablets in the am and 1 tablet at hs PENTOSAN POLYSULFATE SODIUM 36656157603 No Longer Active Robert Hu MD Active MUCINEX D 60-600 MG ORAL TABLET EXTENDED RELEASE 12 HOUR 1 t ab po q am PSEUDOEPHEDRINE-GUAIFENESIN 53098475745 No Longer Act nael Carlton Hu MD Active MUCINEX DM MAXIMUM STRENGTH 60-1200 MG ORAL TABLET EXT ENDED RELEASE 12 HOUR 1 tab po q am DEXTROMETHORPHAN-GUAIFENESIN 81713194374 No Longer Active Carlton Hu MD Active TUSSIONEX PENNKINETIC ER 10-8 MG/5ML ORAL SUSPENSION E XTENDED RELEASE 5ml po q12hr PRN Cough HYDROCOD POLST-CHLORPHEN POLST 5 5184824996 No Longer Active Carlton Hu MD Active POTASSIUM CHLORIDE ER 20 MEQ ORAL TABLET EXTENDED RELE ASE Take 1 by mouth 4 times daily for 7 days POTASSIUM CHLORIDE 37675959139 No Longer Active Carlton Hu MD Active ZITHROMAX 250 MG ORAL TABLET 2 po today, then 1 po q days 2-5 14/09/04 AZITHROMYCIN 83045332660 No Longer Active Elise Garcia APRN Active TUSSIONEX PENNKINETIC ER 10-8 MG/5ML ORAL SUSPENSION E XTENDED RELEASE 5 ml twice a day as needed for cough HYDROCOD POLST-CHLORPH EN POLST 71955528483 No Longer Active Elise Garcia APRN Active MONTELUKAST SODIUM 10 MG ORAL TABLET 1 po daily for Allergy MONTELUKAST SODIUM 15580707808 Active Carlton Hu MD Ac tive TUSSIONEX PENNKINETIC ER 10-8 MG/5ML ORAL SUSPENSION E XTENDED RELEASE 5ml po q12hr PRN Cough HYDROCOD POLST-CHLORPHEN POLST 5 9157946864 No Longer Active Hugo Restrepo MD Active GABAPENTIN 100 MG ORAL CAPSULE 1 po BID for fibromyalgia GABAPENTIN 54320773761 Active Carlton Hu MD Active LYRICA 100 MG ORAL CAPSULE Take 1 tab po BID for fibromyalgia 20 11/08/21 PREGABALIN 28409817524 No Longer Active 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 PREDNISONE 20 MG ORAL TABLET 2 tabs daily for 3 days, 1 tab daily for 3 days, 1/2 tab daily for 2 days PREDNISONE 77155291800 No Longer Active Jillina Frazell 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 TUSSIONEX PENNKINETIC ER 10-8 MG/5ML ORAL SUSPENSION E XTENDED RELEASE 5 mL PO q 12 hrs PRN cough HYDROCOD POLST-CHLORPHEN POLST 499797 99343 No Longer Active Jillina Frazell 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 FLUTICASONE PROPIONATE 50 MCG/ACT NASAL SUSPENSION 2 s prays each nostril daily until bottle is empty FLUTICASONE PROPIONATE 798281342 99 No Longer Active Jillina 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 ASMANEX 60 METERED DOSES 220 MCG/INH INHALATION AEROSO L POWDER BREATH ACTIVATED 1 puff bid with rinse after MOMETASONE FUROATE 6133949 4102 No Longer Active Jillina Frazell 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 ZITHROMAX Z-REYNA 250 MG ORAL TABLET 2 today, then 1 daily for 4 d ays AZITHROMYCIN 51842004659 No Longer Active Elise Garcia 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 TUSSIONEX PENNKINETIC ER 10-8 MG/5ML ORAL SUSPENSION E XTENDED RELEASE 5ml po q12hr PRN Cough HYDROCOD POLST-CHLORPHEN POLST 5 8712567994 No Longer Active Elise Garcia 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 PREDNISONE 20 MG ORAL TABLET 2 tabs daily for 3 days, 1 tab daily for 3 days, 1/2 tab daily for 2 days PREDNISONE 89044899475 No Longer Active Jillina Frazell 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 AMOXICILLIN 500 MG ORAL CAPSULE 2 po BID x 10 days 201 09/29/08 AMOXICILLIN 30089562258 No Longer Active Jillina Frazell DRAFTER [employer] DES[employer]AYOUT Act nael SINGULAIR 10 MG ORAL TABLET 1 po qday for allergies 20 14/01/12 MONTELUKAST SODIUM 47900550408 No Longer Active Carlton Hu MD Active LEVAQUIN 500 MG ORAL TABLET 1 tablet by mouth daily 20 13/09/24 LEVOFLOXACIN 43526636590 No Longer Active Carlton Hu MD Acti ve FLUTICASONE PROPIONATE 50 MCG/ACT NASAL SUSPENSION 2 s prays each nostril daily for 2 weeks, then 1 spray each nostril daily. FLUTICASONE PROPIONATE 55861117438 Active Elise Areseema KHAN Active ZITHROMAX 250 MG ORAL TABLET 2 po today, then 1 po q days 2-5 20 13/08/10 AZITHROMYCIN 37843650414 No Longer Active Elise Garcia APRN Active XANAX 0.5 MG ORAL TABLET one tablet by mouth daily prn anxiety 2015 ALPRAZOLAM 30653156771 Active ALFREDO Holly Active CYMBALTA 30 MG ORAL CAPSULE DELAYED RELEASE PARTICLES 1 cap by mouth daily for depression DULOXETINE HCL 71930133649 Active ALFREDO Holly Active CEFDINIR 300 MG ORAL CAPSULE 1 po BID x 10 days CEFDINIR 49730824570 No Longer Active Carlton Hu MD Active ZOCOR 40 MG ORAL TABLET 1 tab by mouth daily SI MVASTATIN 98792002061 No Longer Active Carlton Hu MD Active CYCLOBENZAPRINE HCL 10 MG ORAL TABLET 1 tablet by mouth BID prn had pain CYCLOBENZAPRINE HCL 77625075466 No Longer Active Jayden Hu MD Active LEVOFLOXACIN 500 MG ORAL TABLET 1 tab PO daily x 10 days LEVOFLOXACIN 22102677287 No Longer Active Carlton Hu MD Acti ve PREDNISONE 20 MG ORAL TABLET 3 tab PO qd x 2d, 2 tab P O qd x 2d, 1 tab PO qd x 2d, 1/2 tab PO qd x 2d PREDNISONE 11452397637 No Lo nger Active Carlton Hu MD Active FLUTICASONE PROPIONATE 50 MCG/ACT NASAL SUSPENSION 1 t o 2 sprays each nostril daily FLUTICASONE PROPIONATE 48167179509 No Longer Ac tive Blaine HERNANDEZ Active CHERATUSSIN AC 100-10 MG/5ML ORAL SYRUP 1 tsp by mouth every 4 hours as needed for cough GUAIFENESIN-CODEINE 40353419142 No Longe r Active Blaine HERNANDEZ Active PROMETHAZINE-CODEINE 6.25-10 MG/5ML ORAL SYRUP 1 tsp b y mouth every 6 hours if needed for cough PROMETHAZINE-CODEINE 55556609511 No Longer Active Blaine HERNANDEZ Active CHERATUSSIN AC 100-10 MG/5ML ORAL SYRUP 1 tsp by mouth every 4 hours as needed for cough GUAIFENESIN-CODEINE 06544758124 No Longe r Active Blaine HERNANDEZ Active ZITHROMAX Z-REYNA 250 MG ORAL TABLET 2 today, then 1 daily for 4 d ays AZITHROMYCIN 15358045058 No Longer Active Columba Raida Act nael ZITHROMAX 250 MG ORAL TABLET 2 po today, then 1 po q days 2-5 20 14/03/21 AZITHROMYCIN 61746102157 No Longer Active Carlton Hu MD Active ZITHROMAX Z-REYNA 250 MG ORAL TABLET 2 today, then 1 daily for 4 d ays AZITHROMYCIN 03646606751 No Longer Active Columba Raida Act nael AUGMENTIN 875-125 MG ORAL TABLET 1 po BID x 10 days 13/01/20 AMOXICILLIN-POT CLAVULANATE 36418549942 No Longer Active Diya De Guzman APRN Active ZITHROMAX 250 MG ORAL TABLET 2 po today, then 1 po q days 2-5 20 12/08/14 AZITHROMYCIN 03458586592 No Longer Active Carlton Hu MD Active TRAMADOL HCL 50 MG ORAL TABLET 1 po tid with ES Tylenol TRAMADOL HCL 71458515917 Active Adrienne Means Leonor BRAND STRATEGY MANAGER Active PREMARIN 0.625 MG ORAL TABLET TAKE 1 TAB BY MOUTH DAILY ESTROGENS CONJUGATED 93237052184 No Longer Active Ridge Bess DO A ctive CYMBALTA 30 MG ORAL CAPSULE DELAYED RELEASE PARTICLES 1 cap by mouth daily DULOXETINE HCL 86330205631 No Longer Active Ridge Ya ee DO Active AMOXICILLIN 500 MG ORAL CAPSULE 1 tab by mouth 3 times daily x 10 days AMOXICILLIN 87653682446 No Longer Active Carlton bustamante MD Active AMOXICILLIN 500 MG ORAL CAPSULE 1 tab by mouth 3 times daily x 10 days AMOXICILLIN 21125595289 No Longer Active Carlton bustamante MD Active PROMETHAZINE-CODEINE 6.25-10 MG/5ML ORAL SYRUP 1 tsp b y mouth every 8 hours prn cough PROMETHAZINE-CODEINE 13270931607 No Longer Acti ve Carlton Hu MD Active MEDROL 4 MG ORAL TABLET THERAPY PACK 6 pills x 1 day, then 5 pills x 1 day then 4 pills x 1 day, then 3 pills x 1 day, then 2 pills x 1 day, then 1 pill x 1 day, then stop METHYLPREDNISOLONE 56206197492 No Long er Active Perez Mora MD Active AZITHROMYCIN 250 MG ORAL TABLET 2 po qd x 1 day, then 1 po q d x 4 days AZITHROMYCIN 11096317680 No Longer Active Perez Ambriz MD Active SYMBICORT 160-4.5 MCG/ACT INHALATION AEROSOL 2 puffs bid wit h rinse after BUDESONIDE-FORMOTEROL FUMARATE 51056094148 N o Longer Active Perez Mora MD Active LYRICA 75 MG ORAL CAPSULE TAKE 1 CAPSULE BY MOUTH TWICE DAILY PREGABALIN 87262920598 No Longer Active Carlton Hu MD Acti ve TOPAMAX 25 MG ORAL TABLET 1 qHS x 1 week, then 1 BID x 1 week, then 1 qAM and 2 qHS x 1 week, then 2 BID (migraine prevention) T OPIRAMATE 47451146333 No Longer Active Jerica FUENTES Active TOPAMAX 50 MG ORAL TABLET take 1 tab po BID for migraines. 07/02 TOPIRAMATE 25161040814 No Longer Active Jerica FUENTES Active TOPAMAX 100 MG ORAL TABLET Take 1 tablet po bid TO PIRAMATE 92017947031 Active ALFREDO Holly Active TRIAMCINOLONE ACETONIDE 0.1 % EXTERNAL CREAM apply three roger es daily prn rash TRIAMCINOLONE ACETONIDE 68568090844 No Longer Active Cartlon Hu MD Active PAXIL 40 MG ORAL TABLET take 1 tab po qday for depression 0 PAROXETINE HCL 11462049956 Active ALFREDO Holly Active CHERATUSSIN AC 100-10 MG/5ML ORAL SYRUP 5ml po q6hr PRN Cough 20 13/04/14 GUAIFENESIN-CODEINE 15827828052 No Longer Active Carlton Hu MD Active MEDROL 4 MG ORAL TABLET THERAPY PACK 6 tabs on day 1, 5 tabs on day 2, 4 tabs on day 3, 3 tabs on day 4, 2 tabs on day 5, 1 tab on day 6 2013 METHYLPREDNISOLONE 76766276264 No Longer Active Perez Mora MD Active AZITHROMYCIN 250 MG ORAL TABLET 2 po qd x 1 day, then 1 po q d x 4 days AZITHROMYCIN 95025950029 No Longer Active Perez Ambriz MD Active PROPRANOLOL HCL 60 MG ORAL TABLET 1 PO Q D PROPRANOLOL HCL 60282987339 No Longer Active Perez Mora MD Activ e CHERATUSSIN AC 100-10 MG/5ML ORAL SYRUP take one tsp po Q 6h ours prn cough GUAIFENESIN-CODEINE 57408669800 No Longer Active Zia Mora MD Active AUGMENTIN 875-125 MG ORAL TABLET 1 tab by mouth twice daily with food AMOXICILLIN-POT CLAVULANATE 17344968013 No Longer Act nael Mora MD Active CHERATUSSIN AC 100-10 MG/5ML ORAL SYRUP 1 tsp by mouth every 4 hours as needed for cough GUAIFENESIN-CODEINE 72152880481 No Longe r Active Hugo Restrepo MD Active ACETAMINOPHEN-CODEINE #3 300-30 MG ORAL TABLET 1 PO Q 4-6 HRS WA N PAIN ACETAMINOPHEN-CODEINE 90264575188 No Longer Active Hugo Restrepo MD Active LEVAQUIN 500 MG ORAL TABLET take one po QD LEVO FLOXACIN 00011706417 No Longer Active Griffin HERNANDEZ Active PREDNISONE 20 MG ORAL TABLET Take 3 tabs daily for 3 d ays, 2 tabs daily for 3 days, 1 tab daily for 3 days, 1/2 tab daily for 3 days 11/07 PREDNISONE 39584978858 No Longer Active Carlton Hu MD Acti ve AVELOX 400 MG ORAL TABLET 1 tab by mouth daily MOXIFLOXACIN HCL 95693376765 No Longer Active Carlton Hu MD Active CHERATUSSIN AC 100-10 MG/5ML ORAL SYRUP 1 tsp by mouth every 4 hours as needed for cough GUAIFENESIN-CODEINE 10669818110 No Longe r Active Hugo Restrepo MD Active AVELOX 400 MG ORAL TABLET 1 tab by mouth daily MOXIFLOXACIN HCL 15679006354 No Longer Active Marcy De La Rosa MD PhD Active TERBINAFINE HCL 250 MG ORAL TABLET 1 qDay T ERBINAFINE HCL 27559017603 No Longer Active Marcy De La Rosa MD PhD Active CHERATUSSIN AC 100-10 MG/5ML ORAL SYRUP 1 tsp by mouth every 4 hours as needed for cough GUAIFENESIN-CODEINE 29247648688 No Longe r Active Marcy De La Rosa MD PhD Active AVELOX 400 MG ORAL TABLET 1 tab by mouth daily MOXIFLOXACIN HCL 39054800857 No Longer Active Marcy De La Rosa MD PhD Active HYDROCODONE-ACETAMINOPHEN 5-325 MG ORAL TABLET 1 po q 6hr PRN co ugh HYDROCODONE-ACETAMINOPHEN 94373858580 No Longer Active Marcy De La Rosa MD PhD Active PREDNISONE 20 MG ORAL TABLET 2 tabs daily for 3 days, 1 tab daily for 3 days, 1/2 tab daily for 2 days PREDNISONE 11730263208 No Longer Active Carlton Hu MD Active CEFDINIR 300 MG ORAL CAPSULE by mouth twice a day 2011 CEFDINIR 38336575479 No Longer Active Carlton Hu MD Acti ve HYDROCHLOROTHIAZIDE 25 MG ORAL TABLET 1 TAB PO DAILY HYDROCHLOROTHIAZIDE 90335084202 Active Adrienne Galvez BRAND STRATEGY MANAGER Active ACETAMINOPHEN-CODEINE #3 300-30 MG ORAL TABLET 1 tablet po q 4-6 hrs prn pain ACETAMINOPHEN-CODEINE 60270217109 No Longer Active Ridge Bess DO Active ZITHROMAX 250 MG ORAL TABLET 2 po today, then 1 po q days 2-5 20 03/07/07 AZITHROMYCIN 78553806683 No Longer Active Carlton Hu MD Active CHERATUSSIN AC 100-10 MG/5ML ORAL SYRUP take 1 tsp po q4-6 h ours prn cough GUAIFENESIN-CODEINE 02600755186 No Longer Active Jayden Hu MD Active ACETAMINOPHEN-CODEINE #3 300-30 MG ORAL TABLET 1 PO Q 4-6 HR PRN PAIN ACETAMINOPHEN-CODEINE 04585858867 No Longer Active Da vid Lyndsay Hu MD Active LORTAB 7.5-500 MG/15ML ORAL ELIXIR 7.5 ml po q 4 hour prn cough HYDROCODONE-ACETAMINOPHEN 14578742127 No Longer Active Carlton Hu MD Active PREDNISONE 20 MG ORAL TABLET 1 po bid 3 days, then 1 po q day 3 days PREDNISONE 95358020724 No Longer Active Carlton Hu MD Active CEFDINIR 300 MG ORAL CAPSULE by mouth twice a day 2011 CEFDINIR 49013597441 No Longer Active Carlton Hu MD Acti ve CEFDINIR 300 MG ORAL CAPSULE by mouth twice a day 2010 CEFDINIR 83418004535 No Longer Active Carlton Hu MD Acti ve CEFDINIR 300 MG ORAL CAPSULE by mouth twice a day 2010 CEFDINIR 27867786414 No Longer Active Carlton Hu MD Acti ve TESSALON PERLES 100 MG ORAL CAPSULE 1 tablet by mouth 3 times daily as needed for cough BENZONATATE 33162434941 No Longer Active Carlton Hu MD Active CEFDINIR 300 MG ORAL CAPSULE by mouth twice a day 2010 CEFDINIR 22802576789 No Longer Active Carlton Hu MD Acti ve ZITHROMAX Z-REYNA 250 MG ORAL TABLET 2 today, then 1 daily for 4 d ays AZITHROMYCIN 16196332180 No Longer Active Hugo Restrepo MD Active TESSALON PERLES 100 MG ORAL CAPSULE 1 tablet by mouth 3 times daily as needed for cough TESSALON PERLES 100 MG ORAL CAPSULE 68649 7 BENZONATATE Inactive PREDNISONE 20 MG ORAL TABLET 1 po bid 3 days, then 1 po q day 3 days PREDNISONE 20 MG ORAL TABLET 461260 PREDNISONE [place] ctive LORTAB 7.5-500 MG/15ML ORAL ELIXIR 7.5 [...] cough CHERATUSSIN AC 100-10 MG/5ML ORAL SYRUP 043095 GUAIFENESIN-CODEINE Inactive ACETAMINOPHEN-CODEINE #3 300-30 MG ORAL TABLET 1 tablet po q 4-6 hrs prn pain ACETAMINOPHEN-CODEINE #3 300-30 MG ORAL TABLET ACETAMINOPHEN-CODEINE Inactive HYDROCODONE-ACETAMINOPHEN 5-325 MG ORAL TABLET 1 po q 6hr PRN co ugh HYDROCODONE-ACETAMINOPHEN 5-325 MG ORAL TABLET 278890 HYDROCODONE-ACETAMINOPHEN Inactive AVELOX 400 MG ORAL TABLET 1 tab by mouth daily AVELOX 400 MG ORAL TABLET 431478 MOXIFLOXACIN HCL Inactive CHERATUSSIN AC 100-10 MG/5ML ORAL SYRUP 1 tsp by mouth every 4 hours as needed for cough CHERATUSSIN AC 100-10 MG/5ML ORAL SYRUP 9 12040 GUAIFENESIN-CODEINE Inactive TERBINAFINE HCL 250 MG ORAL TABLET 1 qDay 07/08 TERBINAFINE HCL 250 MG ORAL TABLET 338502 TERBINAFINE HCL Inactive CHERATUSSIN AC 100-10 MG/5ML ORAL SYRUP 1 tsp by mouth every 4 hours as needed for cough CHERATUSSIN AC 100-10 MG/5ML ORAL SYRUP 9 84539 GUAIFENESIN-CODEINE Inactive ACETAMINOPHEN-CODEINE #3 300-30 MG ORAL TABLET 1 PO Q 4-6 HRS WA N PAIN ACETAMINOPHEN-CODEINE #3 300-30 MG ORAL TABLET ACETAMINOPHEN-CODEINE Inactive CHERATUSSIN AC 100-10 MG/5ML ORAL SYRUP 1 tsp by mouth every 4 hours as needed for cough CHERATUSSIN AC 100-10 MG/5ML ORAL SYRUP 9 35029 GUAIFENESIN-CODEINE Inactive AUGMENTIN 875-125 MG ORAL TABLET 1 tab by mouth twice daily with food AUGMENTIN 875-125 MG ORAL TABLET 661995 AMOXICIL MADELINE-POT CLAVULANATE Inactive CHERATUSSIN AC 100-10 MG/5ML ORAL SYRUP take one tsp po Q 6h ours prn cough CHERATUSSIN AC 100-10 MG/5ML ORAL SYRUP 830474 GUAIFENESIN-CODEINE Inactive PROPRANOLOL HCL 60 MG ORAL TABLET 1 PO Q D PROPRANOLOL HCL 60 MG ORAL TABLET 540109 PROPRANOLOL HCL Inactive TOPAMAX 50 MG ORAL TABLET take 1 tab po BID for migraines. 07/02 TOPAMAX 50 MG ORAL TABLET 709687 TOPIRAMATE Inacti ve TOPAMAX 25 MG ORAL TABLET 1 qHS x 1 week, then 1 BID x 1 week, then 1 qAM and 2 qHS x 1 week, then 2 BID (migraine prevention) TOPAMAX 25 MG ORAL TABLET 759972 TOPIRAMATE Inactive LYRICA 75 MG ORAL CAPSULE TAKE 1 CAPSULE BY MOUTH TWICE DAILY LYRICA 75 MG ORAL CAPSULE PREGABALIN Inactive SYMBICORT 160-4.5 MCG/ACT INHALATION AEROSOL 2 puffs bid wit h rinse after SYMBICORT 160-4.5 MCG/ACT INHALATION AEROSOL BUDESONIDE- FORMOTEROL FUMARATE Inactive PROMETHAZINE-CODEINE 6.25-10 MG/5ML ORAL SYRUP 1 tsp b y mouth every 8 hours prn cough PROMETHAZINE-CODEINE 6.25-10 MG/ 5ML ORAL SYRUP 780235 PROMETHAZINE-CODEINE Inactive CYMBALTA 30 MG ORAL CAPSULE DELAYED RELEASE PARTICLES 1 cap by mouth daily CYMBALTA 30 MG ORAL CAPSULE DELAYED RELE ASE PARTICLES 219942 DULOXETINE HCL Inactive PREMARIN 0.625 MG ORAL TABLET TAKE 1 TAB BY MOUTH DAILY PREMARIN 0.625 MG ORAL TABLET ESTROGENS CONJUGATED Inactive CHERATUSSIN AC 100-10 MG/5ML ORAL SYRUP 1 tsp by mouth every 4 hours as needed for cough CHERATUSSIN AC 100-10 MG/5ML ORAL SYRUP 9 12285 GUAIFENESIN-CODEINE Inactive PROMETHAZINE-CODEINE 6.25-10 MG/5ML ORAL SYRUP 1 tsp b y mouth every 6 hours if needed for cough PROMETHAZINE-CODEINE 6.25-10 MG/5ML ORAL SYRUP 925746 PROMETHAZINE-CODEINE Inactive CHERATUSSIN AC 100-10 MG/5ML ORAL SYRUP 1 tsp by mouth every 4 hours as needed for cough CHERATUSSIN AC 100-10 MG/5ML ORAL SYRUP 9 42945 GUAIFENESIN-CODEINE Inactive FLUTICASONE PROPIONATE 50 MCG/ACT NASAL SUSPENSION 1 t o 2 sprays each nostril daily FLUTICASONE PROPIONATE 50 MCG/AC T NASAL SUSPENSION 6561924 FLUTICASONE PROPIONATE Inactive PREDNISONE 20 MG ORAL TABLET 3 tab PO qd x 2d, 2 tab P O qd x 2d, 1 tab PO qd x 2d, 1/2 tab PO qd x 2d PREDNISONE 20 MG ORAL TAB LET 873375 PREDNISONE Inactive LEVOFLOXACIN 500 MG ORAL TABLET 1 tab PO daily x 10 days LEVOFLOXACIN 500 MG ORAL TABLET 959478 LEVOFLOXACIN Inactive CYCLOBENZAPRINE HCL 10 MG ORAL TABLET 1 tablet by mouth BID prn had pain CYCLOBENZAPRINE HCL 10 MG ORAL TABLET 008659 CYCLOBENZAPRINE HCL Inactive ZOCOR 40 MG ORAL TABLET 1 tab by mouth daily 4 ZOCOR 40 MG ORAL TABLET 970555 SIMVASTATIN Inactive TUSSIONEX PENNKINETIC ER 10-8 MG/5ML [...] FLUTICASONE PROPIO EFE 50 MCG/ACT NASAL SUSPENSION 0187699 FLUTICASONE PROPIONATE Inactive TUSSIONEX PENNKINETIC ER 10-8 [...] three days PREDNISONE 20 MG ORAL TABLET 851558 PREDNIS ONE Inactive PROAIR HFA 108 (90 BASE) MCG/ACT INHALATION AEROSOL SO LUTION 2 puffs four times a day as needed PROAIR HFA 108 (90 B ASE) MCG/ACT INHALATION AEROSOL SOLUTION ALBUTEROL SULFATE Inactive ZITHROMAX Z-REYNA 250 MG ORAL TABLET 2 today, then 1 daily for 4 d ays ZITHROMAX Z-REYNA 250 MG ORAL TABLET 955616 AZITHROMYCIN Inactive CEFDINIR 300 MG ORAL CAPSULE by mouth twice a day 2010 CEFDINIR 300 MG ORAL CAPSULE 419589 CEFDINIR Inactive CEFDINIR 300 MG ORAL CAPSULE by mouth twice a day 2010 CEFDINIR 300 MG ORAL CAPSULE 384767 CEFDINIR Inactive CEFDINIR 300 MG ORAL CAPSULE by mouth twice a day 2010 CEFDINIR 300 MG ORAL CAPSULE 872264 CEFDINIR Inactive CEFDINIR 300 MG ORAL CAPSULE by mouth twice a day 2011 CEFDINIR 300 MG ORAL CAPSULE 047209 CEFDINIR Inactive ZITHROMAX 250 MG ORAL TABLET 2 po today, then 1 po q days 2-5 20 03/07/07 ZITHROMAX 250 MG ORAL TABLET 136245 AZITHROMYCIN Greer ctive CEFDINIR 300 MG ORAL CAPSULE by mouth twice a day 2011 CEFDINIR 300 MG ORAL CAPSULE 641596 CEFDINIR Inactive PREDNISONE 20 MG ORAL TABLET 2 tabs daily for 3 days, 1 tab daily for 3 days, 1/2 tab daily for 2 days PREDNISONE 20 MG ORAL T ABLET 057010 PREDNISONE Inactive AVELOX 400 MG ORAL TABLET 1 tab by mouth daily AVELOX 400 MG ORAL TABLET 814813 MOXIFLOXACIN HCL Inactive AVELOX 400 MG ORAL TABLET 1 tab by mouth daily AVELOX 400 MG ORAL TABLET 550347 MOXIFLOXACIN HCL Inactive PREDNISONE 20 MG ORAL TABLET Take 3 tabs daily for 3 d ays, 2 tabs daily for 3 days, 1 tab daily for 3 days, 1/2 tab daily for 3 days 11/07 PREDNISONE 20 MG ORAL TABLET 351301 PREDNISONE Inactive LEVAQUIN 500 MG ORAL TABLET take one po QD LEVAQUIN 500 MG ORAL TABLET 501121 LEVOFLOXACIN Inactive AZITHROMYCIN 250 MG ORAL TABLET 2 po qd x 1 day, then 1 po q d x 4 days AZITHROMYCIN 250 MG ORAL TABLET 429413 AZITHROMY GIOVANNI Inactive MEDROL 4 MG ORAL TABLET THERAPY PACK 6 tabs on day 1, 5 tabs on day 2, 4 tabs on day 3, 3 tabs on day 4, 2 tabs on day 5, 1 tab on day 6 2013 MEDROL 4 MG ORAL TABLET THERAPY PACK 219138 METHYLPREDNISOLONE Greer ctive CHERATUSSIN AC 100-10 MG/5ML ORAL SYRUP 5ml po q6hr PRN Cough 20 13/04/14 CHERATUSSIN AC 100-10 MG/5ML ORAL SYRUP 375747 GUAIFENE SIN-CODEINE Inactive TRIAMCINOLONE ACETONIDE 0.1 % EXTERNAL CREAM apply three roger es daily prn rash TRIAMCINOLONE ACETONIDE 0.1 % EXTERNAL CREAM 101 4314 TRIAMCINOLONE ACETONIDE Inactive AZITHROMYCIN 250 MG ORAL TABLET 2 po qd x 1 day, then 1 po q d x 4 days AZITHROMYCIN 250 MG ORAL TABLET 170564 AZITHROMY GIOVANNI Inactive MEDROL 4 MG ORAL TABLET THERAPY PACK 6 pills x 1 day, then 5 pills x 1 day then 4 pills x 1 day, then 3 pills x 1 day, then 2 pills x 1 day, then 1 pill x 1 day, then stop MEDROL 4 MG ORAL TABLET THERAPY PACK 799937 METHYLPREDNISOLONE Inactive AMOXICILLIN 500 MG ORAL CAPSULE 1 tab by mouth 3 times daily x 10 days AMOXICILLIN 500 MG ORAL CAPSULE 596980 AMOXICILL IN Inactive AMOXICILLIN 500 MG ORAL CAPSULE 1 tab by mouth 3 times daily x 10 days AMOXICILLIN 500 MG ORAL CAPSULE 732233 AMOXICILL IN Inactive ZITHROMAX 250 MG ORAL TABLET 2 po today, then 1 po q days 2-5 20 12/08/14 ZITHROMAX 250 MG ORAL TABLET 303079 AZITHROMYCIN Greer ctive AUGMENTIN 875-125 MG ORAL TABLET 1 po BID x 10 days 20 13/01/20 AUGMENTIN 875-125 MG ORAL TABLET 411329 AMOXICILLIN-POT CLAVULANATE Inactive ZITHROMAX Z-REYNA 250 MG ORAL TABLET 2 today, then 1 daily for 4 d ays ZITHROMAX Z-REYNA 250 MG ORAL TABLET 562145 AZITHROMYCIN Inactive ZITHROMAX 250 MG ORAL TABLET 2 po today, then 1 po q days 2-5 20 14/03/21 ZITHROMAX 250 MG ORAL TABLET 421194 AZITHROMYCIN Greer ctive ZITHROMAX Z-REYNA 250 MG ORAL TABLET 2 today, then 1 daily for 4 d ays ZITHROMAX Z-REYNA 250 MG ORAL TABLET 804809 AZITHROMYCIN Inactive CEFDINIR 300 MG ORAL CAPSULE 1 po BID x 10 days 06/21 CEFDINIR 300 MG ORAL CAPSULE 794036 CEFDINIR Inactive ZITHROMAX 250 MG ORAL TABLET 2 po today, then 1 po q days 2-5 20 13/08/10 ZITHROMAX 250 MG ORAL TABLET 998718 AZITHROMYCIN Greer ctive LEVAQUIN 500 MG ORAL TABLET 1 tablet by mouth daily 20 13/09/24 LEVAQUIN 500 MG ORAL TABLET [id number] LEVOFLOXACIN Inactive SINGULAIR 10 MG ORAL TABLET 1 po qday for allergies 20 14/01/12 SINGULAIR 10 MG ORAL TABLET 636462 MONTELUKAST SODIUM Inactive AMOXICILLIN 500 MG ORAL CAPSULE 2 po BID x 10 days 201 09/29/08 AMOXICILLIN 500 MG ORAL CAPSULE 311030 AMOXICILLIN Inactive PREDNISONE 20 MG ORAL TABLET 2 tabs daily for 3 days, 1 tab daily for 3 days, 1/2 tab daily for 2 days PREDNISONE 20 MG ORAL T ABLET 708730 PREDNISONE Inactive ZITHROMAX Z-REYNA 250 MG ORAL TABLET 2 today, then 1 daily for 4 d ays ZITHROMAX Z-REYNA 250 MG ORAL TABLET 952226 AZITHROMYCIN Inactive PREDNISONE 20 MG ORAL TABLET 2 tabs daily for 3 days, 1 tab daily for 3 days, 1/2 tab daily for 2 days PREDNISONE 20 MG ORAL T ABLET [id number] PREDNISONE Inactive ZITHROMAX 250 MG ORAL TABLET 2 po today, then 1 po q days 2-5 20 14/09/04 ZITHROMAX 250 MG ORAL TABLET 729976 AZITHROMYCIN [place] ctive AMOXICILLIN 500 MG ORAL CAPSULE 1 cap by mouth three times a day AMOXICILLIN 500 MG ORAL CAPSULE 622801 AMOXICILLIN Inactive TERBINAFINE HCL 250 MG ORAL TABLET 1 qDay for nail fungus 7 TERBINAFINE HCL 250 MG ORAL TABLET 042513 TERBINAFINE HCL Inact nael AUGMENTIN 875-125 MG ORAL TABLET 1 po BID x 10 days 16/03/22 AUGMENTIN 875-125 MG ORAL TABLET 606913 AMOXICILLIN-POT CLAVULANATE Inactive PREDNISONE 20 MG ORAL TABLET 2 po qd x 5 days PREDNISONE 20 MG ORAL TABLET 439014 PREDNISONE Inactive AZITHROMYCIN 250 MG ORAL TABLET 2 po qd x 1 day, then 1 po q d x 4 days AZITHROMYCIN 250 MG ORAL TABLET 840462 AZITHROMY GIOVANNI Inactive Vital Signs Date Name [...] weight E&M 138.50 [lb_av] Weight Measure d Diagnostic Results Date Name Value Unit Range Description Lab Report: Basic Metabolic Panel - Chem istry sodium, serum 139 mmol/L 713-807 1130/03/19 potassium, serum 3.6 mmol/L 3.5-5.2 chloride, serum 100 mmol/L 98-107 carbon dioxide, venous blood 30.3 mmol/L 21.0-32 .0 blood glucose 101 mg/dL 65-110 calcium, serum 9.4 mg/dL 8.5-10.1 urea nitrogen, blood 10 mg/dL 7-18 creatinine, serum 0.96 mg/dL 0.60-1.30 sodium, serum 139 mmol/L 721-522 3928/10/12 potassium, serum 3.8 mmol/L 3.5-5.2 chloride, serum 102 mmol/L 98-107 carbon dioxide, venous blood 29.4 mmol/L 21.0-32 .0 blood glucose 103 mg/dL 65-95 calcium, serum 8.8 mg/dL 8.5-10.1 urea nitrogen, blood 10 mg/dL 7-18 creatinine, serum 0.97 mg/dL 0.60-1.30 Estimated Glomerular Filtration Rate (calc) 62 (?) mL/min/1.73m2 = OR > 60 mL/min Encounters Code Encounter Date Provider Facility CPT-09388 [id number] Vst-Est Level III 11:12:16 CDT Yanet Bess DO [facility] CPT-09153 Level 3 Est. Patient 11:34:49 PRESETTER OPERATOR Perez Mora MD [facility] CPT-43754 Level 4 Est. Patient 09:51:32 PRESETTER OPERATOR Carlton rich MD [facility] CPT-47088 Level 3 Est. Patient 10:26:00 PRESETTER OPERATOR Elise stephenson APRN [facility] CPT-53910 Level 3 Est. Patient 13:35:41 PRESETTER OPERATOR Carlton rich MD [facility] CPT-75988 Level 3 Est. Patient 10:03:52 PRESETTER OPERATOR Carlton rich MD [facility] CPT-32287 Level 3 Est. Patient 12:17:50 CDT Hugo Restrepo MD [facility] CPT-88580 Level 3 Est. Patient 13:42:38 CDT Elise Are ll [facility] CPT-99084 Level 3 Est. Patient 13:23:51 CDT Diya cobian [facility] CPT-52307 Level 3 Est. Patient 14:22:19 PRESETTER OPERATOR Diya cobian [facility] CPT-09477 Level 3 Est. Patient 10:11:46 CDT Carlton rich MD [facility] CPT-16584 Level 3 Est. Patient 17:29:43 CDT Elise Are ll [facility] CPT-52131 Level 3 Est. Patient 11:58:06 CDT Elise Are [facility] CPT-26580 Level 4 Est. Patient 14:36:51 CDT Carlton rich MD [facility] CPT-22304 Level 3 Est. Patient 18:16:00 PRESETTER OPERATOR Blaine HERNANDEZ [facility] CPT-11009 Level 3 Est. Patient 09:45:49 PRESETTER OPERATOR Carlton rich MD [facility] CPT-42658 Level 3 Est. Patient 13:19:20 CDT Carlton rich MD [facility] CPT-38651 Level 3 Est. Patient 13:06:43 CDT Ridge tam DO [facility] CPT-49927 Level 3 Est. Patient 10:03:07 CDT Perez Mora MD [facility] CPT-54674 Level 3 Est. Patient 19:50:35 PRESETTER OPERATOR Carlton rich MD [facility] CPT-39862 Level 4 Est. Patient 18:05:01 PRESETTER OPERATOR Carlton rich MD [facility] CPT-84455 Level 3 Est. Patient 10:45:55 PRESETTER OPERATOR Hugo Restrepo MD [facility] CPT-86295 Level 3 Est. Patient 14:12:49 CDT Griffin HERNANDEZ [facility] CPT-40970 Level 3 Est. Patient 17:37:24 CDT Carlton rich MD [facility] CPT-45923 Level 3 Est. Patient 16:51:54 CDT Carlton rich MD [facility] CPT-49741 Level 3 Est. Patient 12:18:11 CDT Hugo Restrepo MD [facility] CPT-88448 Level 3 Est. Patient 11:30:25 CDT Marcy crisostomo MD PhD [facility] CPT-31939 Level 3 Est. Patient 12:00:47 PRESETTER OPERATOR Carlton rich MD [facility] CPT-96424 Level 3 Est. Patient 16:31:06 PRESETTER OPERATOR Carlton rich MD [facility] CPT-14293 Level 3 Est. Patient 16:23:24 PRESETTER OPERATOR Ridge tam DO [facility] CPT-21513 Level 3 Est. Patient 12:34:12 CDT Carlton rich MD [facility] CPT-67266 Level 2 Est. Patient 15:43:33 CDT Robi armstrong MD [facility] CPT-74855 Level 4 Est. Patient 14:04:44 CDT Carlton rich MD [facility] CPT-34437 Level 3 Est. Patient 05:47:59 CDT Ridge tam [facility] CPT-19339 Level 3 Est. Patient 13:12:53 PRESETTER OPERATOR Carlton rich MD [facility] CPT-24810 Level 3 Est. Patient 14:26:53 CDT Hugo Restrepo MD [facility] Procedures Code Procedure Name Date Entry Date Standard Desc ription CPT-000 Give Appropriate Flu Vaccine 14:14:31 CDT 2 CPT-J1040 Depo Medrol 80 mg (Methyl Prednisolone A cetate) 10:42:44 CDT CPT-J1100 Decadron 8mg (Dexamethasone) 10:42:44 CDT 2 CPT-J0696 Rocephin 1gm Inj Solr 14:32:13 CDT CPT-J1020 Depo Medrol 60 mg (Methyl Prednisolone A cetate) 14:32:13 CDT CPT-J1100 Decadron 6mg (Dexamethasone) 14:32:13 CDT CPT-38273 Hip bilat min 2V w AP pelvis 13:16:20 CDT 2 CPT-70874 Pelvis only 13:07:33 CDT CPT-65366 Spec Collection and Handling Fee 11:25:12 C DT CPT-51997 Fluzone Quadrivalent Intramuscular Suspe nsion 0.5 ML 14:31:55 CDT CPT-33076 Abx/Therapy Injection 13:28:47 PRESETTER OPERATOR CPT-J2930 Solu Medrol 125 mg (Methyl Prednisolone Sodium Succinate) 12:00:47 PRESETTER OPERATOR CPT-22336 Venipuncture Draw Fee 11:33:31 CDT CPT-20158 EKG Trac and Interp 11:21:09 CDT CPT-58146 Chest 2V Frontal and Lat 11:21:09 CDT 12/15 CPT-05493 Venipuncture Draw Fee 08:02:34 CDT CPT-26932 Chest 2V Frontal and Lat 05:47:59 CDT 06/05
--- OUTSIDE RECORDS SUMMARY | 2019-10-08 09:25 | XMS REPORT | Clinical Summary ---
Author Author Caitlin, Juliana Martinez Organization [facility] Address Unknown Phone Unavailable Allergies, Adverse Reactions, [...] po q d x 4 days AZITHROMYCIN [id number] No Longer Active Ridge Bess DO Active PREDNISONE 20 MG ORAL TABLET two tabs by mouth today, then one tab by mouth days two and three and four PREDNISONE 01598851828 Active Lyndsay Mora MD Active PREDNISONE 20 MG ORAL TABLET 2 po qd x 5 days P REDNISONE 97173398650 No Longer Active Perez Moar MD Active PROAIR HFA 108 (90 BASE) MCG/ACT INHALATION AEROSOL SO LUTION 2 puffs four times a day as needed ALBUTEROL SULFATE 16314665814 No Long er Active Becky FUENTES Active ASPIRIN 81 MG ORAL TABLET 1 po qd ASPIRIN 12652535509 Active Carlton Hu MD Active PREDNISONE 20 MG ORAL TABLET 1 tab twice daily for 3 d ay, then one daily for three days PREDNISONE 53540369827 No Longer Active Carlton Hu MD Active AUGMENTIN 875-125 MG ORAL TABLET 1 po BID x 10 days 20 16/03/22 AMOXICILLIN-POT CLAVULANATE 99634832028 No Longer Active Elise Garcia APRN Active TERBINAFINE HCL 250 MG ORAL TABLET 1 qDay for nail fungus 7 TERBINAFINE HCL 03656125716 No Longer Active Carlton Hu MD A ctive TUSSIONEX PENNKINETIC ER 10-8 MG/5ML ORAL SUSPENSION E XTENDED RELEASE 5ml po q12hr PRN Cough HYDROCOD POLST-CHLORPHEN POLST 43514514506 Active Carlton Hu MD Active AMOXICILLIN 500 MG ORAL CAPSULE 1 cap by mouth three times a day AMOXICILLIN 09114149761 No Longer Active Carlton Hu MD Active ELMIRON 100 MG ORAL CAPSULE 2 tablets in the am and 1 tablet at hs PENTOSAN POLYSULFATE SODIUM 57697430349 No Longer Active Robert Hu MD Active MUCINEX D 60-600 MG ORAL TABLET EXTENDED RELEASE 12 HOUR 1 t ab po q am PSEUDOEPHEDRINE-GUAIFENESIN 63275495649 No Longer Act nael Carlton Hu MD Active MUCINEX DM MAXIMUM STRENGTH 60-1200 MG ORAL TABLET EXT ENDED RELEASE 12 HOUR 1 tab po q am DEXTROMETHORPHAN-GUAIFENESIN 04730068285 No Longer Active Carlton Hu MD Active TUSSIONEX PENNKINETIC ER 10-8 MG/5ML ORAL SUSPENSION E XTENDED RELEASE 5ml po q12hr PRN Cough HYDROCOD POLST-CHLORPHEN POLST 5 2134520228 No Longer Active Carlton Hu MD Active POTASSIUM CHLORIDE ER 20 MEQ ORAL TABLET EXTENDED RELE ASE Take 1 by mouth 4 times daily for 7 days POTASSIUM CHLORIDE 12349479602 No Longer Active Carlton Hu MD Active ZITHROMAX 250 MG ORAL TABLET 2 po today, then 1 po q days 2-5 14/09/04 AZITHROMYCIN 34804719674 No Longer Active Elise Garcia APRN Active TUSSIONEX PENNKINETIC ER 10-8 MG/5ML ORAL SUSPENSION E XTENDED RELEASE 5 ml twice a day as needed for cough HYDROCOD POLST-CHLORPH EN POLST 54519303139 No Longer Active Elise Garcia APRN Active MONTELUKAST SODIUM 10 MG ORAL TABLET 1 po daily for Allergy MONTELUKAST SODIUM 55807327494 Active Carlton Hu MD Ac tive TUSSIONEX PENNKINETIC ER 10-8 MG/5ML ORAL SUSPENSION E XTENDED RELEASE 5ml po q12hr PRN Cough HYDROCOD POLST-CHLORPHEN POLST 5 2117812113 No Longer Active Hugo Restrepo MD Active GABAPENTIN 100 MG ORAL CAPSULE 1 po BID for fibromyalgia GABAPENTIN 49128340925 Active Carlton Hu MD Active LYRICA 100 MG ORAL CAPSULE Take 1 tab po BID for fibromyalgia 20 11/08/21 PREGABALIN 19465133906 No Longer Active Elise Garcia BUSINESS OFFICE REPRESENTATIVE A ctive PREDNISONE 20 MG ORAL TABLET 2 tabs daily for 3 days, 1 tab daily for 3 days, 1/2 tab daily for 2 days PREDNISONE 77881086152 No Longer Active Jillina Frazell BUSINESS OFFICE REPRESENTATIVE Active TUSSIONEX PENNKINETIC ER 10-8 MG/5ML ORAL SUSPENSION E XTENDED RELEASE 5 mL PO q 12 hrs PRN cough HYDROCOD POLST-CHLORPHEN POLST 029057 36230 No Longer Active Jillina Frazell BUSINESS OFFICE REPRESENTATIVE Active FLUTICASONE PROPIONATE 50 MCG/ACT NASAL SUSPENSION 2 s prays each nostril daily until bottle is empty FLUTICASONE PROPIONATE 297083373 99 No Longer Active Jillina Frazell BUSINESS OFFICE REPRESENTATIVE Active ASMANEX 60 METERED DOSES 220 MCG/INH INHALATION AEROSO L POWDER BREATH ACTIVATED 1 puff bid with rinse after MOMETASONE FUROATE 8196046 4102 No Longer Active Jillina Frazell BUSINESS OFFICE REPRESENTATIVE Active ZITHROMAX Z-REYNA 250 MG ORAL TABLET 2 today, then 1 daily for 4 d ays AZITHROMYCIN 62601683089 No Longer Active Elise Garcia BUSINESS OFFICE REPRESENTATIVE Active TUSSIONEX PENNKINETIC ER 10-8 MG/5ML ORAL SUSPENSION E XTENDED RELEASE 5ml po q12hr PRN Cough HYDROCOD POLST-CHLORPHEN POLST 5 3992972899 No Longer Active Elise Garcia BUSINESS OFFICE REPRESENTATIVE Active PREDNISONE 20 MG ORAL TABLET 2 tabs daily for 3 days, 1 tab daily for 3 days, 1/2 tab daily for 2 days PREDNISONE 56108312620 No Longer Active Jillina Frazell BUSINESS OFFICE REPRESENTATIVE Active AMOXICILLIN 500 MG ORAL CAPSULE 2 po BID x 10 days 201 09/29/08 AMOXICILLIN 51243855534 No Longer Active Jillina Frazell BUSINESS OFFICE REPRESENTATIVE Act nael SINGULAIR 10 MG ORAL TABLET 1 po qday for allergies 20 14/01/12 MONTELUKAST SODIUM 00765565603 No Longer Active Carlton Hu MD Active LEVAQUIN 500 MG ORAL TABLET 1 tablet by mouth daily 20 13/09/24 LEVOFLOXACIN 78923672966 No Longer Active Carlton Hu MD Acti ve FLUTICASONE PROPIONATE 50 MCG/ACT NASAL SUSPENSION 2 s prays each nostril daily for 2 weeks, then 1 spray each nostril daily. FLUTICASONE PROPIONATE 42815105492 Active Elise Areseema KHAN Active ZITHROMAX 250 MG ORAL TABLET 2 po today, then 1 po q days 2-5 20 13/08/10 AZITHROMYCIN 79615777342 No Longer Active Elise Garcia APRN Active XANAX 0.5 MG ORAL TABLET one tablet by mouth daily prn anxiety 2015 ALPRAZOLAM 82049669957 Active ALFREDO Holly Active CYMBALTA 30 MG ORAL CAPSULE DELAYED RELEASE PARTICLES 1 cap by mouth daily for depression DULOXETINE HCL 56573617293 Active ALFREDO Holly Active CEFDINIR 300 MG ORAL CAPSULE 1 po BID x 10 days CEFDINIR 65608080815 No Longer Active Carlton Hu MD Active ZOCOR 40 MG ORAL TABLET 1 tab by mouth daily SI MVASTATIN 40248996638 No Longer Active Carlton Hu MD Active CYCLOBENZAPRINE HCL 10 MG ORAL TABLET 1 tablet by mouth BID prn had pain CYCLOBENZAPRINE HCL 87953036581 No Longer Active Jayden Hu MD Active LEVOFLOXACIN 500 MG ORAL TABLET 1 tab PO daily x 10 days LEVOFLOXACIN 37880424141 No Longer Active Carlton Hu MD Acti ve PREDNISONE 20 MG ORAL TABLET 3 tab PO qd x 2d, 2 tab P O qd x 2d, 1 tab PO qd x 2d, 1/2 tab PO qd x 2d PREDNISONE 73562625989 No Lo nger Active Carlton Hu MD Active FLUTICASONE PROPIONATE 50 MCG/ACT NASAL SUSPENSION 1 t o 2 sprays each nostril daily FLUTICASONE PROPIONATE 65885589678 No Longer Ac tive Blaine HERNANDEZ Active CHERATUSSIN AC 100-10 MG/5ML ORAL SYRUP 1 tsp by mouth every 4 hours as needed for cough GUAIFENESIN-CODEINE 79105998191 No Longe r Active Blaine HERNANDEZ Active PROMETHAZINE-CODEINE 6.25-10 MG/5ML ORAL SYRUP 1 tsp b y mouth every 6 hours if needed for cough PROMETHAZINE-CODEINE 89634434498 No Longer Active Blaine HERNANDEZ Active CHERATUSSIN AC 100-10 MG/5ML ORAL SYRUP 1 tsp by mouth every 4 hours as needed for cough GUAIFENESIN-CODEINE 06315607735 No Longe r Active Blaine HERNANDEZ Active ZITHROMAX Z-REYNA 250 MG ORAL TABLET 2 today, then 1 daily for 4 d ays AZITHROMYCIN 25026037221 No Longer Active Columba Raida Act nael ZITHROMAX 250 MG ORAL TABLET 2 po today, then 1 po q days 2-5 20 14/03/21 AZITHROMYCIN 12560402422 No Longer Active Carlton Hu MD Active ZITHROMAX Z-REYNA 250 MG ORAL TABLET 2 today, then 1 daily for 4 d ays AZITHROMYCIN 44655924517 No Longer Active Columba Raida Act nael AUGMENTIN 875-125 MG ORAL TABLET 1 po BID x 10 days 13/01/20 AMOXICILLIN-POT CLAVULANATE 46652452642 No Longer Active Diya De Guzman APRN Active ZITHROMAX 250 MG ORAL TABLET 2 po today, then 1 po q days 2-5 20 12/08/14 AZITHROMYCIN 65101158015 No Longer Active Carlton Hu MD Active TRAMADOL HCL 50 MG ORAL TABLET 1 po tid with ES Tylenol TRAMADOL HCL 93393824767 Active ALFREDO Holly Active PREMARIN 0.625 MG ORAL TABLET TAKE 1 TAB BY MOUTH DAILY ESTROGENS CONJUGATED 27098552526 No Longer Active Ridge Bess DO A ctive CYMBALTA 30 MG ORAL CAPSULE DELAYED RELEASE PARTICLES 1 cap by mouth daily DULOXETINE HCL 18180122190 No Longer Active Ridge tam DO Active AMOXICILLIN 500 MG ORAL CAPSULE 1 tab by mouth 3 times daily x 10 days AMOXICILLIN 43462153129 No Longer Active Carlton bustamante MD Active AMOXICILLIN 500 MG ORAL CAPSULE 1 tab by mouth 3 times daily x 10 days AMOXICILLIN 83536300734 No Longer Active Carlton bustamante MD Active PROMETHAZINE-CODEINE 6.25-10 MG/5ML ORAL SYRUP 1 tsp b y mouth every 8 hours prn cough PROMETHAZINE-CODEINE 64027285372 No Longer Acti ve Carlton Hu MD Active MEDROL 4 MG ORAL TABLET THERAPY PACK 6 pills x 1 day, then 5 pills x 1 day then 4 pills x 1 day, then 3 pills x 1 day, then 2 pills x 1 day, then 1 pill x 1 day, then stop METHYLPREDNISOLONE 50637727442 No Long er Active Perez Mora MD Active AZITHROMYCIN 250 MG ORAL TABLET 2 po qd x 1 day, then 1 po q d x 4 days AZITHROMYCIN 62978634591 No Longer Active Perez Ambriz MD Active SYMBICORT 160-4.5 MCG/ACT INHALATION AEROSOL 2 puffs bid wit h rinse after BUDESONIDE-FORMOTEROL FUMARATE 46264972048 N o Longer Active Perez Mora MD Active LYRICA 75 MG ORAL CAPSULE TAKE 1 CAPSULE BY MOUTH TWICE DAILY PREGABALIN 98263263637 No Longer Active Carlton Hu MD Acti ve TOPAMAX 25 MG ORAL TABLET 1 qHS x 1 week, then 1 BID x 1 week, then 1 qAM and 2 qHS x 1 week, then 2 BID (migraine prevention) T OPIRAMATE 06241751009 No Longer Active Jerica FUENTES Active TOPAMAX 50 MG ORAL TABLET take 1 tab po BID for migraines. 07/02 TOPIRAMATE 87785985216 No Longer Active Jerica FUENTES Active TOPAMAX 100 MG ORAL TABLET Take 1 tablet po bid TO PIRAMATE 33188608398 Active ALFREDO Holly Active TRIAMCINOLONE ACETONIDE 0.1 % EXTERNAL CREAM apply three roger es daily prn rash TRIAMCINOLONE ACETONIDE 81076905342 No Longer Active Carlton Hu MD Active PAXIL 40 MG ORAL TABLET take 1 tab po qday for depression 0 PAROXETINE HCL 12254181482 Active ALFREDO Holly Active CHERATUSSIN AC 100-10 MG/5ML ORAL SYRUP 5ml po q6hr PRN Cough 20 13/04/14 GUAIFENESIN-CODEINE 93215824866 No Longer Active Carlton Hu MD Active MEDROL 4 MG ORAL TABLET THERAPY PACK 6 tabs on day 1, 5 tabs on day 2, 4 tabs on day 3, 3 tabs on day 4, 2 tabs on day 5, 1 tab on day 6 2013 METHYLPREDNISOLONE 25193006376 No Longer Active Perez Mora MD Active AZITHROMYCIN 250 MG ORAL TABLET 2 po qd x 1 day, then 1 po q d x 4 days AZITHROMYCIN 05763207903 No Longer Active Perez Ambriz MD Active PROPRANOLOL HCL 60 MG ORAL TABLET 1 PO Q D PROPRANOLOL HCL 09282740422 No Longer Active Perez Mora MD Activ e CHERATUSSIN AC 100-10 MG/5ML ORAL SYRUP take one tsp po Q 6h ours prn cough GUAIFENESIN-CODEINE 06183785901 No Longer Active Zia Mora MD Active AUGMENTIN 875-125 MG ORAL TABLET 1 tab by mouth twice daily with food AMOXICILLIN-POT CLAVULANATE 38334056606 No Longer Act nael Mora MD Active CHERATUSSIN AC 100-10 MG/5ML ORAL SYRUP 1 tsp by mouth every 4 hours as needed for cough GUAIFENESIN-CODEINE 75771816756 No Longe r Active Hugo Restrepo MD Active ACETAMINOPHEN-CODEINE #3 300-30 MG ORAL TABLET 1 PO Q 4-6 HRS OR N PAIN ACETAMINOPHEN-CODEINE 12521437886 No Longer Active Hugo Restrepo MD Active LEVAQUIN 500 MG ORAL TABLET take one po QD LEVO FLOXACIN 74023387205 No Longer Active Griffin HERNANDEZ Active PREDNISONE 20 MG ORAL TABLET Take 3 tabs daily for 3 d ays, 2 tabs daily for 3 days, 1 tab daily for 3 days, 1/2 tab daily for 3 days 11/07 PREDNISONE 33592456919 No Longer Active Carlton Hu MD Acti ve AVELOX 400 MG ORAL TABLET 1 tab by mouth daily MOXIFLOXACIN HCL 20538181451 No Longer Active Carlton Hu MD Active CHERATUSSIN AC 100-10 MG/5ML ORAL SYRUP 1 tsp by mouth every 4 hours as needed for cough GUAIFENESIN-CODEINE 37559866543 No Longe r Active Hugo Restrepo MD Active AVELOX 400 MG ORAL TABLET 1 tab by mouth daily MOXIFLOXACIN HCL 24521859197 No Longer Active Marcy De La Rosa MD PhD Active TERBINAFINE HCL 250 MG ORAL TABLET 1 qDay T ERBINAFINE HCL 37392848372 No Longer Active Marcy De La Rosa MD PhD Active CHERATUSSIN AC 100-10 MG/5ML ORAL SYRUP 1 tsp by mouth every 4 hours as needed for cough GUAIFENESIN-CODEINE 83028662426 No Longe r Active Marcy De La Rosa MD PhD Active AVELOX 400 MG ORAL TABLET 1 tab by mouth daily MOXIFLOXACIN HCL 55676872632 No Longer Active Marcy C Madril MD PhD Active HYDROCODONE-ACETAMINOPHEN 5-325 MG ORAL TABLET 1 po q 6hr PRN co ugh HYDROCODONE-ACETAMINOPHEN 04939745730 No Longer Active Marcy De La Rosa MD PhD Active PREDNISONE 20 MG ORAL TABLET 2 tabs daily for 3 days, 1 tab daily for 3 days, 1/2 tab daily for 2 days PREDNISONE 39421431374 No Longer Active Carlton Hu MD Active CEFDINIR 300 MG ORAL CAPSULE by mouth twice a day 2011 CEFDINIR 45323444536 No Longer Active Carlton Hu MD Acti ve HYDROCHLOROTHIAZIDE 25 MG ORAL TABLET 1 TAB PO DAILY HYDROCHLOROTHIAZIDE 33571439168 Active Adrienne Galvez RESIDENTIAL FEE APPRAISER Active ACETAMINOPHEN-CODEINE #3 300-30 MG ORAL TABLET 1 tablet po q 4-6 hrs prn pain ACETAMINOPHEN-CODEINE 60350898884 No Longer Active Ridge Bess DO Active ZITHROMAX 250 MG ORAL TABLET 2 po today, then 1 po q days 2-5 20 03/07/07 AZITHROMYCIN 18099187468 No Longer Active Carlton Hu MD Active CHERATUSSIN AC 100-10 MG/5ML ORAL SYRUP take 1 tsp po q4-6 h ours prn cough GUAIFENESIN-CODEINE 29246441387 No Longer Active Jayden Hu MD Active ACETAMINOPHEN-CODEINE #3 300-30 MG ORAL TABLET 1 PO Q 4-6 HR PRN PAIN ACETAMINOPHEN-CODEINE 46870714056 No Longer Active Da vid Lyndsay Hu MD Active LORTAB 7.5-500 MG/15ML ORAL ELIXIR 7.5 ml po q 4 hour prn cough HYDROCODONE-ACETAMINOPHEN 92518355494 No Longer Active Carlton Hu MD Active PREDNISONE 20 MG ORAL TABLET 1 po bid 3 days, then 1 po q day 3 days PREDNISONE 41570860377 No Longer Active Carlton Hu MD Active CEFDINIR 300 MG ORAL CAPSULE by mouth twice a day 2011 CEFDINIR 82557217123 No Longer Active Carlton Hu MD Acti ve CEFDINIR 300 MG ORAL CAPSULE by mouth twice a day 2010 CEFDINIR 54872693998 No Longer Active Carlton Hu MD Acti ve CEFDINIR 300 MG ORAL CAPSULE by mouth twice a day 2010 CEFDINIR 34664260747 No Longer Active Carlton Hu MD Acti ve TESSALON PERLES 100 MG ORAL CAPSULE 1 tablet by mouth 3 times daily as needed for cough BENZONATATE 01714823256 No Longer Active Carlton Hu MD Active CEFDINIR 300 MG ORAL CAPSULE by mouth twice a day 2010 CEFDINIR 12394934749 No Longer Active Carlton Hu MD Acti ve ZITHROMAX Z-REYNA 250 MG ORAL TABLET 2 today, then 1 daily for 4 d ays AZITHROMYCIN 10335937287 No Longer Active Hugo Restrepo MD Active TESSALON PERLES 100 MG ORAL CAPSULE 1 tablet by mouth 3 times daily as needed for cough TESSALON PERLES 100 MG ORAL CAPSULE 60746 7 BENZONATATE Inactive PREDNISONE 20 MG ORAL TABLET 1 po bid 3 days, then 1 po q day 3 days PREDNISONE 20 MG ORAL TABLET 144979 PREDNISONE Greer ctive LORTAB 7.5-500 MG/15ML ORAL [...] cough CHERATUSSIN AC 100-10 MG/5ML ORAL SYRUP 537855 GUAIFENESIN-CODEINE Inactive ACETAMINOPHEN-CODEINE #3 300-30 MG ORAL TABLET 1 tablet po q 4-6 hrs prn pain ACETAMINOPHEN-CODEINE #3 300-30 MG ORAL TABLET ACETAMINOPHEN-CODEINE Inactive HYDROCODONE-ACETAMINOPHEN 5-325 MG ORAL TABLET 1 po q 6hr PRN co ugh HYDROCODONE-ACETAMINOPHEN 5-325 MG ORAL TABLET 299925 HYDROCODONE-ACETAMINOPHEN Inactive AVELOX 400 MG ORAL TABLET 1 tab by mouth daily AVELOX 400 MG ORAL TABLET 650561 MOXIFLOXACIN HCL Inactive CHERATUSSIN AC 100-10 MG/5ML ORAL SYRUP 1 tsp by mouth every 4 hours as needed for cough CHERATUSSIN AC 100-10 MG/5ML ORAL SYRUP 9 22497 GUAIFENESIN-CODEINE Inactive TERBINAFINE HCL 250 MG ORAL TABLET 1 qDay 07/08 TERBINAFINE HCL 250 MG ORAL TABLET 473407 TERBINAFINE HCL Inactive CHERATUSSIN AC 100-10 MG/5ML ORAL SYRUP 1 tsp by mouth every 4 hours as needed for cough CHERATUSSIN AC 100-10 MG/5ML ORAL SYRUP 9 96135 GUAIFENESIN-CODEINE Inactive ACETAMINOPHEN-CODEINE #3 300-30 MG ORAL TABLET 1 PO Q 4-6 HRS OR N PAIN ACETAMINOPHEN-CODEINE #3 300-30 MG ORAL TABLET ACETAMINOPHEN-CODEINE Inactive CHERATUSSIN AC 100-10 MG/5ML ORAL SYRUP 1 tsp by mouth every 4 hours as needed for cough CHERATUSSIN AC 100-10 MG/5ML ORAL SYRUP 9 01633 GUAIFENESIN-CODEINE Inactive AUGMENTIN 875-125 MG ORAL TABLET 1 tab by mouth twice daily with food AUGMENTIN 875-125 MG ORAL TABLET 397986 AMOXICIL MADELINE-POT CLAVULANATE Inactive CHERATUSSIN AC 100-10 MG/5ML ORAL SYRUP take one tsp po Q 6h ours prn cough CHERATUSSIN AC 100-10 MG/5ML ORAL SYRUP 995081 GUAIFENESIN-CODEINE Inactive PROPRANOLOL HCL 60 MG ORAL TABLET 1 PO Q D PROPRANOLOL HCL 60 MG ORAL TABLET 304376 PROPRANOLOL HCL Inactive TOPAMAX 50 MG ORAL TABLET take 1 tab po BID for migraines. 07/02 TOPAMAX 50 MG ORAL TABLET 545786 TOPIRAMATE Inacti ve TOPAMAX 25 MG ORAL TABLET 1 qHS x 1 week, then 1 BID x 1 week, then 1 qAM and 2 qHS x 1 week, then 2 BID (migraine prevention) TOPAMAX 25 MG ORAL TABLET 455474 TOPIRAMATE Inactive LYRICA 75 MG ORAL CAPSULE TAKE 1 CAPSULE BY MOUTH TWICE DAILY LYRICA 75 MG ORAL CAPSULE PREGABALIN Inactive SYMBICORT 160-4.5 MCG/ACT INHALATION AEROSOL 2 puffs bid wit h rinse after SYMBICORT 160-4.5 MCG/ACT INHALATION AEROSOL BUDESONIDE- FORMOTEROL FUMARATE Inactive PROMETHAZINE-CODEINE 6.25-10 MG/5ML ORAL SYRUP 1 tsp b y mouth every 8 hours prn cough PROMETHAZINE-CODEINE 6.25-10 MG/ 5ML ORAL SYRUP 874539 PROMETHAZINE-CODEINE Inactive CYMBALTA 30 MG ORAL CAPSULE DELAYED RELEASE PARTICLES 1 cap by mouth daily CYMBALTA 30 MG ORAL CAPSULE DELAYED RELE ASE PARTICLES 782275 DULOXETINE HCL Inactive PREMARIN 0.625 MG ORAL TABLET TAKE 1 TAB BY MOUTH DAILY PREMARIN 0.625 MG ORAL TABLET ESTROGENS CONJUGATED Inactive CHERATUSSIN AC 100-10 MG/5ML ORAL SYRUP 1 tsp by mouth every 4 hours as needed for cough CHERATUSSIN AC 100-10 MG/5ML ORAL SYRUP 9 03697 GUAIFENESIN-CODEINE Inactive PROMETHAZINE-CODEINE 6.25-10 MG/5ML ORAL SYRUP 1 tsp b y mouth every 6 hours if needed for cough PROMETHAZINE-CODEINE 6.25-10 MG/5ML ORAL SYRUP 397448 PROMETHAZINE-CODEINE Inactive CHERATUSSIN AC 100-10 MG/5ML ORAL SYRUP 1 tsp by mouth every 4 hours as needed for cough CHERATUSSIN AC 100-10 MG/5ML ORAL SYRUP 9 13353 GUAIFENESIN-CODEINE Inactive FLUTICASONE PROPIONATE 50 MCG/ACT NASAL SUSPENSION 1 t o 2 sprays each nostril daily FLUTICASONE PROPIONATE 50 MCG/AC T NASAL SUSPENSION 3595809 FLUTICASONE PROPIONATE Inactive PREDNISONE 20 MG ORAL TABLET 3 tab PO qd x 2d, 2 tab P O qd x 2d, 1 tab PO qd x 2d, 1/2 tab PO qd x 2d PREDNISONE 20 MG ORAL TAB LET 930759 PREDNISONE Inactive LEVOFLOXACIN 500 MG ORAL TABLET 1 tab PO daily x 10 days LEVOFLOXACIN 500 MG ORAL TABLET 904314 LEVOFLOXACIN Inactive CYCLOBENZAPRINE HCL 10 MG ORAL TABLET 1 tablet by mouth BID prn had pain CYCLOBENZAPRINE HCL 10 MG ORAL TABLET 459254 CYCLOBENZAPRINE HCL Inactive ZOCOR 40 MG ORAL TABLET 1 tab by mouth daily 4 ZOCOR 40 MG ORAL TABLET 516210 SIMVASTATIN Inactive TUSSIONEX PENNKINETIC ER 10-8 MG/5ML [...] FLUTICASONE PROPIO EFE 50 MCG/ACT NASAL SUSPENSION 6780676 FLUTICASONE PROPIONATE Inactive TUSSIONEX PENNKINETIC ER 10-8 [...] three days PREDNISONE 20 MG ORAL TABLET 287044 PREDNIS ONE Inactive PROAIR HFA 108 (90 BASE) MCG/ACT INHALATION AEROSOL SO LUTION 2 puffs four times a day as needed PROAIR HFA 108 (90 B ASE) MCG/ACT INHALATION AEROSOL SOLUTION ALBUTEROL SULFATE Inactive ZITHROMAX Z-REYNA 250 MG ORAL TABLET 2 today, then 1 daily for 4 d ays ZITHROMAX Z-REYNA 250 MG ORAL TABLET 825419 AZITHROMYCIN Inactive CEFDINIR 300 MG ORAL CAPSULE by mouth twice a day 2010 CEFDINIR 300 MG ORAL CAPSULE 301606 CEFDINIR Inactive CEFDINIR 300 MG ORAL CAPSULE by mouth twice a day 2010 CEFDINIR 300 MG ORAL CAPSULE 679378 CEFDINIR Inactive CEFDINIR 300 MG ORAL CAPSULE by mouth twice a day 2010 CEFDINIR 300 MG ORAL CAPSULE 399128 CEFDINIR Inactive CEFDINIR 300 MG ORAL CAPSULE by mouth twice a day 2011 CEFDINIR 300 MG ORAL CAPSULE 978554 CEFDINIR Inactive ZITHROMAX 250 MG ORAL TABLET 2 po today, then 1 po q days 2-5 20 03/07/07 ZITHROMAX 250 MG ORAL TABLET 072495 AZITHROMYCIN [place] ctive CEFDINIR 300 MG ORAL CAPSULE by mouth twice a day 2011 CEFDINIR 300 MG ORAL CAPSULE 237171 CEFDINIR Inactive PREDNISONE 20 MG ORAL TABLET 2 tabs daily for 3 days, 1 tab daily for 3 days, 1/2 tab daily for 2 days PREDNISONE 20 MG ORAL T ABLET 568483 PREDNISONE Inactive AVELOX 400 MG ORAL TABLET 1 tab by mouth daily AVELOX 400 MG ORAL TABLET 544392 MOXIFLOXACIN HCL Inactive AVELOX 400 MG ORAL TABLET 1 tab by mouth daily AVELOX 400 MG ORAL TABLET 797980 MOXIFLOXACIN HCL Inactive PREDNISONE 20 MG ORAL TABLET Take 3 tabs daily for 3 d ays, 2 tabs daily for 3 days, 1 tab daily for 3 days, 1/2 tab daily for 3 days 11/07 PREDNISONE 20 MG ORAL TABLET 833884 PREDNISONE Inactive LEVAQUIN 500 MG ORAL TABLET take one po QD LEVAQUIN 500 MG ORAL TABLET 112273 LEVOFLOXACIN Inactive AZITHROMYCIN 250 MG ORAL TABLET 2 po qd x 1 day, then 1 po q d x 4 days AZITHROMYCIN 250 MG ORAL TABLET 576829 AZITHROMY GIOVANNI Inactive MEDROL 4 MG ORAL TABLET THERAPY PACK 6 tabs on day 1, 5 tabs on day 2, 4 tabs on day 3, 3 tabs on day 4, 2 tabs on day 5, 1 tab on day 6 2013 MEDROL 4 MG ORAL TABLET THERAPY PACK 516010 METHYLPREDNISOLONE [place] ctive CHERATUSSIN AC 100-10 MG/5ML ORAL SYRUP 5ml po q6hr PRN Cough 20 13/04/14 CHERATUSSIN AC 100-10 MG/5ML ORAL SYRUP 596105 GUAIFENE SIN-CODEINE Inactive TRIAMCINOLONE ACETONIDE 0.1 % EXTERNAL CREAM apply three roger es daily prn rash TRIAMCINOLONE ACETONIDE 0.1 % EXTERNAL CREAM 101 4314 TRIAMCINOLONE ACETONIDE Inactive AZITHROMYCIN 250 MG ORAL TABLET 2 po qd x 1 day, then 1 po q d x 4 days AZITHROMYCIN 250 MG ORAL TABLET 042119 AZITHROMY GIOVANNI Inactive MEDROL 4 MG ORAL TABLET THERAPY PACK 6 pills x 1 day, then 5 pills x 1 day then 4 pills x 1 day, then 3 pills x 1 day, then 2 pills x 1 day, then 1 pill x 1 day, then stop MEDROL 4 MG ORAL TABLET THERAPY PACK 831924 METHYLPREDNISOLONE Inactive AMOXICILLIN 500 MG ORAL CAPSULE 1 tab by mouth 3 times daily x 10 days AMOXICILLIN 500 MG ORAL CAPSULE 426305 AMOXICILL IN Inactive AMOXICILLIN 500 MG ORAL CAPSULE 1 tab by mouth 3 times daily x 10 days AMOXICILLIN 500 MG ORAL CAPSULE 545432 AMOXICILL IN Inactive ZITHROMAX 250 MG ORAL TABLET 2 po today, then 1 po q days 2-5 20 12/08/14 ZITHROMAX 250 MG ORAL TABLET 648266 AZITHROMYCIN [place] ctive AUGMENTIN 875-125 MG ORAL TABLET 1 po BID x 10 days 20 13/01/20 AUGMENTIN 875-125 MG ORAL TABLET 903892 AMOXICILLIN-POT CLAVULANATE Inactive ZITHROMAX Z-REYNA 250 MG ORAL TABLET 2 today, then 1 daily for 4 d ays ZITHROMAX Z-REYNA 250 MG ORAL TABLET 376434 AZITHROMYCIN Inactive ZITHROMAX 250 MG ORAL TABLET 2 po today, then 1 po q days 2-5 20 14/03/21 ZITHROMAX 250 MG ORAL TABLET 846035 AZITHROMYCIN [place] ctive ZITHROMAX Z-REYNA 250 MG ORAL TABLET 2 today, then 1 daily for 4 d ays ZITHROMAX Z-REYNA 250 MG ORAL TABLET 896088 AZITHROMYCIN Inactive CEFDINIR 300 MG ORAL CAPSULE 1 po BID x 10 days 06/21 CEFDINIR 300 MG ORAL CAPSULE 569414 CEFDINIR Inactive ZITHROMAX 250 MG ORAL TABLET 2 po today, then 1 po q days 2-5 20 13/08/10 ZITHROMAX 250 MG ORAL TABLET 497395 AZITHROMYCIN [place] ctive LEVAQUIN 500 MG ORAL TABLET 1 tablet by mouth daily 20 13/09/24 LEVAQUIN 500 MG ORAL TABLET 891769 LEVOFLOXACIN Inactive SINGULAIR 10 MG ORAL TABLET 1 po qday for allergies 20 14/01/12 SINGULAIR 10 MG ORAL TABLET [id number] MONTELUKAST SODIUM Inactive AMOXICILLIN 500 MG ORAL CAPSULE 2 po BID x 10 days 201 09/29/08 AMOXICILLIN 500 MG ORAL CAPSULE 873967 AMOXICILLIN Inactive PREDNISONE 20 MG ORAL TABLET 2 tabs daily for 3 days, 1 tab daily for 3 days, 1/2 tab daily for 2 days PREDNISONE 20 MG ORAL T ABLET 743843 PREDNISONE Inactive ZITHROMAX Z-REYNA 250 MG ORAL TABLET 2 today, then 1 daily for 4 d ays ZITHROMAX Z-REYNA 250 MG ORAL TABLET 679641 AZITHROMYCIN Inactive PREDNISONE 20 MG ORAL TABLET 2 tabs daily for 3 days, 1 tab daily for 3 days, 1/2 tab daily for 2 days PREDNISONE 20 MG ORAL T ABLET 694786 PREDNISONE Inactive ZITHROMAX 250 MG ORAL TABLET 2 po today, then 1 po q days 2-5 20 14/09/04 ZITHROMAX 250 MG ORAL TABLET 121526 AZITHROMYCIN Greer ctive AMOXICILLIN 500 MG ORAL CAPSULE 1 cap by mouth three times a day AMOXICILLIN 500 MG ORAL CAPSULE 465972 AMOXICILLIN Inactive TERBINAFINE HCL 250 MG ORAL TABLET 1 qDay for nail fungus 7 TERBINAFINE HCL 250 MG ORAL TABLET 631629 TERBINAFINE HCL Inact nael AUGMENTIN 875-125 MG ORAL TABLET 1 po BID x 10 days 16/03/22 AUGMENTIN 875-125 MG ORAL TABLET 855004 AMOXICILLIN-POT CLAVULANATE Inactive PREDNISONE 20 MG ORAL TABLET 2 po qd x 5 days PREDNISONE 20 MG ORAL TABLET 758629 PREDNISONE Inactive AZITHROMYCIN 250 MG ORAL TABLET 2 po qd x 1 day, then 1 po q d x 4 days AZITHROMYCIN 250 MG ORAL TABLET 573098 AZITHROMY GIOVANNI Inactive Vital Signs Date Name [...] - Chem istry sodium, serum 139 mmol/L 902-293 9560/03/19 potassium, serum 3.6 mmol/L 3.5-5.2 chloride, serum 100 mmol/L 98-107 carbon dioxide, venous blood 30.3 mmol/L 21.0-32 .0 blood glucose 101 mg/dL 65-110 calcium, serum 9.4 mg/dL 8.5-10.1 urea nitrogen, blood 10 mg/dL 7-18 creatinine, serum 0.96 mg/dL 0.60-1.30 sodium, serum 139 mmol/L 849-656 7621/10/12 potassium, serum 3.8 mmol/L 3.5-5.2 chloride, serum 102 mmol/L 98-107 carbon dioxide, venous blood 29.4 mmol/L 21.0-32 .0 blood glucose 103 mg/dL 65-95 calcium, serum 8.8 mg/dL 8.5-10.1 urea nitrogen, blood 10 mg/dL 7-18 creatinine, serum 0.97 mg/dL 0.60-1.30 Estimated Glomerular Filtration Rate (calc) 62 (?) mL/min/1.73m2 = OR > 60 mL/min Encounters Code Encounter Date Provider Facility CPT-08508 [id number] Vst-Est Level III 11:12:16 CDT Yanet Bess DO [facility] CPT-32212 Level 3 Est. Patient 11:34:49 PIPE INSULATOR Perez Mora MD [facility] CPT-82837 Level 4 Est. Patient 09:51:32 PIPE INSULATOR Carlton rich MD [facility] CPT-70508 Level 3 Est. Patient 10:26:00 PIPE INSULATOR Elise stephenson APRN [facility] CPT-91822 Level 3 Est. Patient 13:35:41 PIPE INSULATOR Carlton rich MD [facility] CPT-95900 Level 3 Est. Patient 10:03:52 PIPE INSULATOR Carlton rich MD [facility] CPT-77335 Level 3 Est. Patient 12:17:50 CDT Hugo Restrepo MD [facility] CPT-33255 Level 3 Est. Patient 13:42:38 CDT Elise Are [facility] CPT-81564 Level 3 Est. Patient 13:23:51 CDT Diya cobian [facility] CPT-40267 Level 3 Est. Patient 14:22:19 PIPE INSULATOR Astridgreer Mariana cobian [facility] CPT-48271 Level 3 Est. Patient 10:11:46 CDT Carlton rich MD [facility] CPT-75058 Level 3 Est. Patient 17:29:43 CDT Elise Are ll [facility] CPT-80139 Level 3 Est. Patient 11:58:06 CDT Elise Are [facility] CPT-40760 Level 4 Est. Patient 14:36:51 CDT Carlton rich MD [facility] CPT-71392 Level 3 Est. Patient 18:16:00 PIPE INSULATOR Blaine HERNANDEZ [facility] CPT-44115 Level 3 Est. Patient 09:45:49 PIPE INSULATOR Carlton rich MD [facility] CPT-00031 Level 3 Est. Patient 13:19:20 CDT Carlton rich MD [facility] CPT-10443 Level 3 Est. Patient 13:06:43 CDT Ridge tam DO [facility] CPT-94365 Level 3 Est. Patient 10:03:07 CDT Perez Mora MD [facility] CPT-91813 Level 3 Est. Patient 19:50:35 PIPE INSULATOR Carlton rich MD [facility] CPT-24483 Level 4 Est. Patient 18:05:01 PIPE INSULATOR Carlton rich MD [facility] CPT-54939 Level 3 Est. Patient 10:45:55 PIPE INSULATOR Hugo Restrepo MD [facility] CPT-23602 Level 3 Est. Patient 14:12:49 CDT Griffin HERNANDEZ [facility] CPT-98761 Level 3 Est. Patient 17:37:24 CDT Carlton rich MD [facility] CPT-26551 Level 3 Est. Patient 16:51:54 CDT Carlton rich MD [facility] CPT-82617 Level 3 Est. Patient 12:18:11 CDT Hugo Restrepo MD [facility] CPT-08146 Level 3 Est. Patient 11:30:25 CDT Marcy crisostomo MD PhD [facility] CPT-16926 Level 3 Est. Patient 12:00:47 PIPE INSULATOR Carlton rich MD [facility] CPT-71673 Level 3 Est. Patient 16:31:06 PIPE INSULATOR Carlton rich MD [facility] CPT-40425 Level 3 Est. Patient 16:23:24 PIPE INSULATOR Ridge tam DO [facility] CPT-30718 Level 3 Est. Patient 12:34:12 CDT Carlton rich MD [facility] CPT-49602 Level 2 Est. Patient 15:43:33 CDT Robi armstrong MD [facility] CPT-04567 Level 4 Est. Patient 14:04:44 CDT Carlton rich MD [facility] CPT-33313 Level 3 Est. Patient 05:47:59 CDT Ridge tam [facility] CPT-75986 Level 3 Est. Patient 13:12:53 PIPE INSULATOR Carlton rich MD [facility] CPT-47133 Level 3 Est. Patient 14:26:53 CDT Hugo [...] CPT-J1100 Decadron 6mg (Dexamethasone) 14:32:13 CDT 2 CPT-27723 Hip bilat min 2V w AP pelvis 13:16:20 CDT 2 CPT-32374 Pelvis only 13:07:33 CDT CPT-25363 Spec Collection and Handling Fee 11:25:12 C DT CPT-57237 Fluzone Quadrivalent Intramuscular Suspe nsion 0.5 ML 14:31:55 CDT CPT-05949 Abx/Therapy Injection 13:28:47 PIPE INSULATOR CPT-J2930 Solu Medrol 125 mg (Methyl Prednisolone Sodium Succinate) 12:00:47 PIPE INSULATOR CPT-13264 Venipuncture Draw Fee 11:33:31 CDT CPT-15348 EKG Trac and Interp 11:21:09 CDT CPT-38152 Chest 2V Frontal and Lat 11:21:09 CDT 12/15 CPT-54231 Venipuncture Draw Fee 08:02:34 CDT CPT-64156 Chest 2V Frontal and Lat 05:47:59 CDT 06/05
--- OUTSIDE RECORDS SUMMARY | 2019-10-08 09:25 | XMS REPORT | Clinical Summary ---
[...] 465.9 Inactive Ridge Bess DO [place] upper respiratory infections of unspecified site Body [...] po q d x 4 days AZITHROMYCIN [id number] No Longer Active Ridge Bess DO Active PREDNISONE 20 MG ORAL TABLET two tabs by mouth today, then one tab by mouth days two and three and four PREDNISONE 15726075376 Active Lyndsay Mora MD Active PREDNISONE 20 MG ORAL TABLET 2 po qd x 5 days P REDNISONE 98520260000 No Longer Active Perez Mora MD Active PROAIR HFA 108 (90 BASE) MCG/ACT INHALATION AEROSOL SO LUTION 2 puffs four times a day as needed ALBUTEROL SULFATE 18809785042 No Long er Active Becky FUENTES Active ASPIRIN 81 MG ORAL TABLET 1 po qd ASPIRIN 98100508228 Active Carlton Hu MD Active PREDNISONE 20 MG ORAL TABLET 1 tab twice daily for 3 d ay, then one daily for three days PREDNISONE 06476793480 No Longer Active Carlton Hu MD Active AUGMENTIN 875-125 MG ORAL TABLET 1 po BID x 10 days 20 16/03/22 AMOXICILLIN-POT CLAVULANATE 54898132701 No Longer Active Elise Garcia APRN Active TERBINAFINE HCL 250 MG ORAL TABLET 1 qDay for nail fungus 7 TERBINAFINE HCL 73100050953 No Longer Active Carlton Hu MD A ctive TUSSIONEX PENNKINETIC ER 10-8 MG/5ML ORAL SUSPENSION E XTENDED RELEASE 5ml po q12hr PRN Cough HYDROCOD POLST-CHLORPHEN POLST 76358403732 Active Carlton Hu MD Active AMOXICILLIN 500 MG ORAL CAPSULE 1 cap by mouth three times a day AMOXICILLIN 50228565190 No Longer Active Carlton Hu MD Active ELMIRON 100 MG ORAL CAPSULE 2 tablets in the am and 1 tablet at hs PENTOSAN POLYSULFATE SODIUM 20207330147 No Longer Active Robert Hu MD Active MUCINEX D 60-600 MG ORAL TABLET EXTENDED RELEASE 12 HOUR 1 t ab po q am PSEUDOEPHEDRINE-GUAIFENESIN 53483200496 No Longer Act nael Carlton Hu MD Active MUCINEX DM MAXIMUM STRENGTH 60-1200 MG ORAL TABLET EXT ENDED RELEASE 12 HOUR 1 tab po q am DEXTROMETHORPHAN-GUAIFENESIN 61012226112 No Longer Active Carlton Hu MD Active TUSSIONEX PENNKINETIC ER 10-8 MG/5ML ORAL SUSPENSION E XTENDED RELEASE 5ml po q12hr PRN Cough HYDROCOD POLST-CHLORPHEN POLST 5 8843522322 No Longer Active Carlton Hu MD Active POTASSIUM CHLORIDE ER 20 MEQ ORAL TABLET EXTENDED RELE ASE Take 1 by mouth 4 times daily for 7 days POTASSIUM CHLORIDE 80078463625 No Longer Active Carlton Hu MD Active ZITHROMAX 250 MG ORAL TABLET 2 po today, then 1 po q days 2-5 14/09/04 AZITHROMYCIN 68563449274 No Longer Active Elise Garcia APRN Active TUSSIONEX PENNKINETIC ER 10-8 MG/5ML ORAL SUSPENSION E XTENDED RELEASE 5 ml twice a day as needed for cough HYDROCOD POLST-CHLORPH EN POLST 70239254954 No Longer Active Elise Garcia APRN Active MONTELUKAST SODIUM 10 MG ORAL TABLET 1 po daily for Allergy MONTELUKAST SODIUM 00767221707 Active Carlton Hu MD Ac tive TUSSIONEX PENNKINETIC ER 10-8 MG/5ML ORAL SUSPENSION E XTENDED RELEASE 5ml po q12hr PRN Cough HYDROCOD POLST-CHLORPHEN POLST 5 3740473877 No Longer Active Huog Restrepo MD Active GABAPENTIN 100 MG ORAL CAPSULE 1 po BID for fibromyalgia GABAPENTIN 50393013705 Active Carlton Hu MD Active LYRICA 100 MG ORAL CAPSULE Take 1 tab po BID for fibromyalgia 20 11/08/21 PREGABALIN 96978303394 No Longer Active Elise Garcia MOLECULAR MODELER A ctive PREDNISONE 20 MG ORAL TABLET 2 tabs daily for 3 days, 1 tab daily for 3 days, 1/2 tab daily for 2 days PREDNISONE 08045546233 No Longer Active Jillina Frazell MOLECULAR MODELER Active TUSSIONEX PENNKINETIC ER 10-8 MG/5ML ORAL SUSPENSION E XTENDED RELEASE 5 mL PO q 12 hrs PRN cough HYDROCOD POLST-CHLORPHEN POLST 547183 60481 No Longer Active Jillina Frazell MOLECULAR MODELER Active FLUTICASONE PROPIONATE 50 MCG/ACT NASAL SUSPENSION 2 s prays each nostril daily until bottle is empty FLUTICASONE PROPIONATE 643769557 99 No Longer Active Jillina Frazell MOLECULAR MODELER Active ASMANEX 60 METERED DOSES 220 MCG/INH INHALATION AEROSO L POWDER BREATH ACTIVATED 1 puff bid with rinse after MOMETASONE FUROATE 9457413 4102 No Longer Active Jillina Frazell MOLECULAR MODELER Active ZITHROMAX Z-REYNA 250 MG ORAL TABLET 2 today, then 1 daily for 4 d ays AZITHROMYCIN 35113162469 No Longer Active Elise Garcia MOLECULAR MODELER Active TUSSIONEX PENNKINETIC ER 10-8 MG/5ML ORAL SUSPENSION E XTENDED RELEASE 5ml po q12hr PRN Cough HYDROCOD POLST-CHLORPHEN POLST 5 7642483894 No Longer Active Elise Garcia MOLECULAR MODELER Active PREDNISONE 20 MG ORAL TABLET 2 tabs daily for 3 days, 1 tab daily for 3 days, 1/2 tab daily for 2 days PREDNISONE 87663745998 No Longer Active Jillina Frazell MOLECULAR MODELER Active AMOXICILLIN 500 MG ORAL CAPSULE 2 po BID x 10 days 201 09/29/08 AMOXICILLIN 63391857613 No Longer Active Jillina Frazell MOLECULAR MODELER Act nael SINGULAIR 10 MG ORAL TABLET 1 po qday for allergies 20 14/01/12 MONTELUKAST SODIUM 83022277846 No Longer Active Carlton Hu MD Active LEVAQUIN 500 MG ORAL TABLET 1 tablet by mouth daily 20 13/09/24 LEVOFLOXACIN 84976099216 No Longer Active Carlton Hu MD Acti ve FLUTICASONE PROPIONATE 50 MCG/ACT NASAL SUSPENSION 2 s prays each nostril daily for 2 weeks, then 1 spray each nostril daily. FLUTICASONE PROPIONATE 05039097179 Active Elise Areseema KHAN Active ZITHROMAX 250 MG ORAL TABLET 2 po today, then 1 po q days 2-5 20 13/08/10 AZITHROMYCIN 06616034201 No Longer Active Elise Garcia APRN Active XANAX 0.5 MG ORAL TABLET one tablet by mouth daily prn anxiety 2015 ALPRAZOLAM 91604828688 Active ALFREDO Holly Active CYMBALTA 30 MG ORAL CAPSULE DELAYED RELEASE PARTICLES 1 cap by mouth daily for depression DULOXETINE HCL 72831373254 Active ALFREDO Holly Active CEFDINIR 300 MG ORAL CAPSULE 1 po BID x 10 days CEFDINIR 54836559701 No Longer Active Carlton Hu MD Active ZOCOR 40 MG ORAL TABLET 1 tab by mouth daily SI MVASTATIN 67002703381 No Longer Active Carlton Hu MD Active CYCLOBENZAPRINE HCL 10 MG ORAL TABLET 1 tablet by mouth BID prn had pain CYCLOBENZAPRINE HCL 14041419175 No Longer Active Jayden Hu MD Active LEVOFLOXACIN 500 MG ORAL TABLET 1 tab PO daily x 10 days LEVOFLOXACIN 80218575917 No Longer Active Carlton Hu MD Acti ve PREDNISONE 20 MG ORAL TABLET 3 tab PO qd x 2d, 2 tab P O qd x 2d, 1 tab PO qd x 2d, 1/2 tab PO qd x 2d PREDNISONE 22343083377 No Lo nger Active Carlton Hu MD Active FLUTICASONE PROPIONATE 50 MCG/ACT NASAL SUSPENSION 1 t o 2 sprays each nostril daily FLUTICASONE PROPIONATE 73425381163 No Longer Ac tive Blaine HERNANDEZ Active CHERATUSSIN AC 100-10 MG/5ML ORAL SYRUP 1 tsp by mouth every 4 hours as needed for cough GUAIFENESIN-CODEINE 72219656658 No Longe r Active Blaine HERNANDEZ Active PROMETHAZINE-CODEINE 6.25-10 MG/5ML ORAL SYRUP 1 tsp b y mouth every 6 hours if needed for cough PROMETHAZINE-CODEINE 28844650725 No Longer Active Blaine HERNANDEZ Active CHERATUSSIN AC 100-10 MG/5ML ORAL SYRUP 1 tsp by mouth every 4 hours as needed for cough GUAIFENESIN-CODEINE 01979362605 No Longe r Active Blaine HERNANDEZ Active ZITHROMAX Z-REYNA 250 MG ORAL TABLET 2 today, then 1 daily for 4 d ays AZITHROMYCIN 59175249376 No Longer Active Columba Raida Act nael ZITHROMAX 250 MG ORAL TABLET 2 po today, then 1 po q days 2-5 20 14/03/21 AZITHROMYCIN 74866756266 No Longer Active Carlton Hu MD Active ZITHROMAX Z-REYNA 250 MG ORAL TABLET 2 today, then 1 daily for 4 d ays AZITHROMYCIN 60084555096 No Longer Active Columba Raida Act nael AUGMENTIN 875-125 MG ORAL TABLET 1 po BID x 10 days 13/01/20 AMOXICILLIN-POT CLAVULANATE 81117590977 No Longer Active Diya De Guzman APRN Active ZITHROMAX 250 MG ORAL TABLET 2 po today, then 1 po q days 2-5 20 12/08/14 AZITHROMYCIN 92875482526 No Longer Active Carlton Hu MD Active TRAMADOL HCL 50 MG ORAL TABLET 1 po tid with ES Tylenol TRAMADOL HCL 53100515678 Active Adrienne Means Loenor [employer] WORKER Active PREMARIN 0.625 MG ORAL TABLET TAKE 1 TAB BY MOUTH DAILY ESTROGENS CONJUGATED 57150476610 No Longer Active Ridge Bess DO A ctive CYMBALTA 30 MG ORAL CAPSULE DELAYED RELEASE PARTICLES 1 cap by mouth daily DULOXETINE HCL 68986205032 No Longer Active Ridge Ya ee DO Active AMOXICILLIN 500 MG ORAL CAPSULE 1 tab by mouth 3 times daily x 10 days AMOXICILLIN 41051335079 No Longer Active Carlton bustamante MD Active AMOXICILLIN 500 MG ORAL CAPSULE 1 tab by mouth 3 times daily x 10 days AMOXICILLIN 85820118899 No Longer Active Carlton bustamante MD Active PROMETHAZINE-CODEINE 6.25-10 MG/5ML ORAL SYRUP 1 tsp b y mouth every 8 hours prn cough PROMETHAZINE-CODEINE 30423352843 No Longer Acti ve Carlton Hu MD Active MEDROL 4 MG ORAL TABLET THERAPY PACK 6 pills x 1 day, then 5 pills x 1 day then 4 pills x 1 day, then 3 pills x 1 day, then 2 pills x 1 day, then 1 pill x 1 day, then stop METHYLPREDNISOLONE 95889930449 No Long er Active Perez Mora MD Active AZITHROMYCIN 250 MG ORAL TABLET 2 po qd x 1 day, then 1 po q d x 4 days AZITHROMYCIN 30762738768 No Longer Active Perez Ambriz MD Active SYMBICORT 160-4.5 MCG/ACT INHALATION AEROSOL 2 puffs bid wit h rinse after BUDESONIDE-FORMOTEROL FUMARATE 42963883047 N o Longer Active Perez Mora MD Active LYRICA 75 MG ORAL CAPSULE TAKE 1 CAPSULE BY MOUTH TWICE DAILY PREGABALIN 57500608011 No Longer Active Carlton Hu MD Acti ve TOPAMAX 25 MG ORAL TABLET 1 qHS x 1 week, then 1 BID x 1 week, then 1 qAM and 2 qHS x 1 week, then 2 BID (migraine prevention) T OPIRAMATE 70192278847 No Longer Active Jerica FUENTES Active TOPAMAX 50 MG ORAL TABLET take 1 tab po BID for migraines. 07/02 TOPIRAMATE 12167214704 No Longer Active Jerica FUENTES Active TOPAMAX 100 MG ORAL TABLET Take 1 tablet po bid TO PIRAMATE 68152446994 Active ALFREDO Holly Active TRIAMCINOLONE ACETONIDE 0.1 % EXTERNAL CREAM apply three roger es daily prn rash TRIAMCINOLONE ACETONIDE 34386927614 No Longer Active Carlton Hu MD Active PAXIL 40 MG ORAL TABLET take 1 tab po qday for depression 0 PAROXETINE HCL 63525180743 Active ALFREDO Holly Active CHERATUSSIN AC 100-10 MG/5ML ORAL SYRUP 5ml po q6hr PRN Cough 20 13/04/14 GUAIFENESIN-CODEINE 08707735209 No Longer Active Carlton Hu MD Active MEDROL 4 MG ORAL TABLET THERAPY PACK 6 tabs on day 1, 5 tabs on day 2, 4 tabs on day 3, 3 tabs on day 4, 2 tabs on day 5, 1 tab on day 6 2013 METHYLPREDNISOLONE 27074645423 No Longer Active Perez Mora MD Active AZITHROMYCIN 250 MG ORAL TABLET 2 po qd x 1 day, then 1 po q d x 4 days AZITHROMYCIN 23866348777 No Longer Active Perez Ambriz MD Active PROPRANOLOL HCL 60 MG ORAL TABLET 1 PO Q D PROPRANOLOL HCL 23522558315 No Longer Active Perez Mora MD Activ e CHERATUSSIN AC 100-10 MG/5ML ORAL SYRUP take one tsp po Q 6h ours prn cough GUAIFENESIN-CODEINE 40859049070 No Longer Active Zia Mora MD Active AUGMENTIN 875-125 MG ORAL TABLET 1 tab by mouth twice daily with food AMOXICILLIN-POT CLAVULANATE 86536103219 No Longer Act nael Mora MD Active CHERATUSSIN AC 100-10 MG/5ML ORAL SYRUP 1 tsp by mouth every 4 hours as needed for cough GUAIFENESIN-CODEINE 66390834127 No Longe r Active Hugo Restrepo MD Active ACETAMINOPHEN-CODEINE #3 300-30 MG ORAL TABLET 1 PO Q 4-6 HRS DC N PAIN ACETAMINOPHEN-CODEINE 62081369122 No Longer Active Hugo Restrepo MD Active LEVAQUIN 500 MG ORAL TABLET take one po QD LEVO FLOXACIN 11153083107 No Longer Active Griffin HERNANDEZ Active PREDNISONE 20 MG ORAL TABLET Take 3 tabs daily for 3 d ays, 2 tabs daily for 3 days, 1 tab daily for 3 days, 1/2 tab daily for 3 days 11/07 PREDNISONE 14497135972 No Longer Active Carlton Hu MD Acti ve AVELOX 400 MG ORAL TABLET 1 tab by mouth daily MOXIFLOXACIN HCL 77668760533 No Longer Active Carlton Hu MD Active CHERATUSSIN AC 100-10 MG/5ML ORAL SYRUP 1 tsp by mouth every 4 hours as needed for cough GUAIFENESIN-CODEINE 91344331629 No Longe r Active Hugo Restrepo MD Active AVELOX 400 MG ORAL TABLET 1 tab by mouth daily MOXIFLOXACIN HCL 88887765738 No Longer Active Marcy De La Rosa MD PhD Active TERBINAFINE HCL 250 MG ORAL TABLET 1 qDay T ERBINAFINE HCL 34773850555 No Longer Active Marcy De La Rosa MD PhD Active CHERATUSSIN AC 100-10 MG/5ML ORAL SYRUP 1 tsp by mouth every 4 hours as needed for cough GUAIFENESIN-CODEINE 04174707416 No Longe r Active Marcy De La Rosa MD PhD Active AVELOX 400 MG ORAL TABLET 1 tab by mouth daily MOXIFLOXACIN HCL 02900977064 No Longer Active Marcy De La Rosa MD PhD Active HYDROCODONE-ACETAMINOPHEN 5-325 MG ORAL TABLET 1 po q 6hr PRN co ugh HYDROCODONE-ACETAMINOPHEN 12032435009 No Longer Active Marcy De La Rosa MD PhD Active PREDNISONE 20 MG ORAL TABLET 2 tabs daily for 3 days, 1 tab daily for 3 days, 1/2 tab daily for 2 days PREDNISONE 76655530955 No Longer Active Carlton Hu MD Active CEFDINIR 300 MG ORAL CAPSULE by mouth twice a day 2011 CEFDINIR 72340960804 No Longer Active Carlton Hu MD Acti ve HYDROCHLOROTHIAZIDE 25 MG ORAL TABLET 1 TAB PO DAILY HYDROCHLOROTHIAZIDE 81017436351 Active Adrienne Galvez CONCESSION WORKER Active ACETAMINOPHEN-CODEINE #3 300-30 MG ORAL TABLET 1 tablet po q 4-6 hrs prn pain ACETAMINOPHEN-CODEINE 84744852677 No Longer Active Ridge Bess DO Active ZITHROMAX 250 MG ORAL TABLET 2 po today, then 1 po q days 2-5 20 03/07/07 AZITHROMYCIN 86287570414 No Longer Active Carlton Hu MD Active CHERATUSSIN AC 100-10 MG/5ML ORAL SYRUP take 1 tsp po q4-6 h ours prn cough GUAIFENESIN-CODEINE 54680833519 No Longer Active Jayden Hu MD Active ACETAMINOPHEN-CODEINE #3 300-30 MG ORAL TABLET 1 PO Q 4-6 HR PRN PAIN ACETAMINOPHEN-CODEINE 47174013396 No Longer Active Da vid Lyndsay Hu MD Active LORTAB 7.5-500 MG/15ML ORAL ELIXIR 7.5 ml po q 4 hour prn cough HYDROCODONE-ACETAMINOPHEN 79533626013 No Longer Active Carlton Hu MD Active PREDNISONE 20 MG ORAL TABLET 1 po bid 3 days, then 1 po q day 3 days PREDNISONE 82032072002 No Longer Active Carlton Hu MD Active CEFDINIR 300 MG ORAL CAPSULE by mouth twice a day 2011 CEFDINIR 13428313381 No Longer Active Carlton Hu MD Acti ve CEFDINIR 300 MG ORAL CAPSULE by mouth twice a day 2010 CEFDINIR 47683706011 No Longer Active Carlton Hu MD Acti ve CEFDINIR 300 MG ORAL CAPSULE by mouth twice a day 2010 CEFDINIR 80364799183 No Longer Active Carlton Hu MD Acti ve TESSALON PERLES 100 MG ORAL CAPSULE 1 tablet by mouth 3 times daily as needed for cough BENZONATATE 70520932331 No Longer Active Carlton Hu MD Active CEFDINIR 300 MG ORAL CAPSULE by mouth twice a day 2010 CEFDINIR 56656860858 No Longer Active Carlton uH MD Acti ve ZITHROMAX Z-REYNA 250 MG ORAL TABLET 2 today, then 1 daily for 4 d ays AZITHROMYCIN 14215648830 No Longer Active Hugo Restrepo MD Active TESSALON PERLES 100 MG ORAL CAPSULE 1 tablet by mouth 3 times daily as needed for cough TESSALON PERLES 100 MG ORAL CAPSULE 19222 7 BENZONATATE Inactive PREDNISONE 20 MG ORAL TABLET 1 po bid 3 days, then 1 po q day 3 days PREDNISONE 20 MG ORAL TABLET 137383 PREDNISONE [place] ctive LORTAB 7.5-500 MG/15ML ORAL ELIXIR 7.5 [...] cough CHERATUSSIN AC 100-10 MG/5ML ORAL SYRUP 734374 GUAIFENESIN-CODEINE Inactive ACETAMINOPHEN-CODEINE #3 300-30 MG ORAL TABLET 1 tablet po q 4-6 hrs prn pain ACETAMINOPHEN-CODEINE #3 300-30 MG ORAL TABLET ACETAMINOPHEN-CODEINE Inactive HYDROCODONE-ACETAMINOPHEN 5-325 MG ORAL TABLET 1 po q 6hr PRN co ugh HYDROCODONE-ACETAMINOPHEN 5-325 MG ORAL TABLET 383877 HYDROCODONE-ACETAMINOPHEN Inactive AVELOX 400 MG ORAL TABLET 1 tab by mouth daily AVELOX 400 MG ORAL TABLET 662554 MOXIFLOXACIN HCL Inactive CHERATUSSIN AC 100-10 MG/5ML ORAL SYRUP 1 tsp by mouth every 4 hours as needed for cough CHERATUSSIN AC 100-10 MG/5ML ORAL SYRUP 9 42241 GUAIFENESIN-CODEINE Inactive TERBINAFINE HCL 250 MG ORAL TABLET 1 qDay 07/08 TERBINAFINE HCL 250 MG ORAL TABLET 528488 TERBINAFINE HCL Inactive CHERATUSSIN AC 100-10 MG/5ML ORAL SYRUP 1 tsp by mouth every 4 hours as needed for cough CHERATUSSIN AC 100-10 MG/5ML ORAL SYRUP 9 60640 GUAIFENESIN-CODEINE Inactive ACETAMINOPHEN-CODEINE #3 300-30 MG ORAL TABLET 1 PO Q 4-6 HRS DC N PAIN ACETAMINOPHEN-CODEINE #3 300-30 MG ORAL TABLET ACETAMINOPHEN-CODEINE Inactive CHERATUSSIN AC 100-10 MG/5ML ORAL SYRUP 1 tsp by mouth every 4 hours as needed for cough CHERATUSSIN AC 100-10 MG/5ML ORAL SYRUP 9 68023 GUAIFENESIN-CODEINE Inactive AUGMENTIN 875-125 MG ORAL TABLET 1 tab by mouth twice daily with food AUGMENTIN 875-125 MG ORAL TABLET 001972 AMOXICIL MADELINE-POT CLAVULANATE Inactive CHERATUSSIN AC 100-10 MG/5ML ORAL SYRUP take one tsp po Q 6h ours prn cough CHERATUSSIN AC 100-10 MG/5ML ORAL SYRUP 443398 GUAIFENESIN-CODEINE Inactive PROPRANOLOL HCL 60 MG ORAL TABLET 1 PO Q D PROPRANOLOL HCL 60 MG ORAL TABLET 265634 PROPRANOLOL HCL Inactive TOPAMAX 50 MG ORAL TABLET take 1 tab po BID for migraines. 07/02 TOPAMAX 50 MG ORAL TABLET 162857 TOPIRAMATE Inacti ve TOPAMAX 25 MG ORAL TABLET 1 qHS x 1 week, then 1 BID x 1 week, then 1 qAM and 2 qHS x 1 week, then 2 BID (migraine prevention) TOPAMAX 25 MG ORAL TABLET 076480 TOPIRAMATE Inactive LYRICA 75 MG ORAL CAPSULE TAKE 1 CAPSULE BY MOUTH TWICE DAILY LYRICA 75 MG ORAL CAPSULE PREGABALIN Inactive SYMBICORT 160-4.5 MCG/ACT INHALATION AEROSOL 2 puffs bid wit h rinse after SYMBICORT 160-4.5 MCG/ACT INHALATION AEROSOL BUDESONIDE- FORMOTEROL FUMARATE Inactive PROMETHAZINE-CODEINE 6.25-10 MG/5ML ORAL SYRUP 1 tsp b y mouth every 8 hours prn cough PROMETHAZINE-CODEINE 6.25-10 MG/ 5ML ORAL SYRUP 619704 PROMETHAZINE-CODEINE Inactive CYMBALTA 30 MG ORAL CAPSULE DELAYED RELEASE PARTICLES 1 cap by mouth daily CYMBALTA 30 MG ORAL CAPSULE DELAYED RELE ASE PARTICLES 220276 DULOXETINE HCL Inactive PREMARIN 0.625 MG ORAL TABLET TAKE 1 TAB BY MOUTH DAILY PREMARIN 0.625 MG ORAL TABLET ESTROGENS CONJUGATED Inactive CHERATUSSIN AC 100-10 MG/5ML ORAL SYRUP 1 tsp by mouth every 4 hours as needed for cough CHERATUSSIN AC 100-10 MG/5ML ORAL SYRUP 9 05099 GUAIFENESIN-CODEINE Inactive PROMETHAZINE-CODEINE 6.25-10 MG/5ML ORAL SYRUP 1 tsp b y mouth every 6 hours if needed for cough PROMETHAZINE-CODEINE 6.25-10 MG/5ML ORAL SYRUP 272248 PROMETHAZINE-CODEINE Inactive CHERATUSSIN AC 100-10 MG/5ML ORAL SYRUP 1 tsp by mouth every 4 hours as needed for cough CHERATUSSIN AC 100-10 MG/5ML ORAL SYRUP 9 02422 GUAIFENESIN-CODEINE Inactive FLUTICASONE PROPIONATE 50 MCG/ACT NASAL SUSPENSION 1 t o 2 sprays each nostril daily FLUTICASONE PROPIONATE 50 MCG/AC T NASAL SUSPENSION 4775068 FLUTICASONE PROPIONATE Inactive PREDNISONE 20 MG ORAL TABLET 3 tab PO qd x 2d, 2 tab P O qd x 2d, 1 tab PO qd x 2d, 1/2 tab PO qd x 2d PREDNISONE 20 MG ORAL TAB LET 932303 PREDNISONE Inactive LEVOFLOXACIN 500 MG ORAL TABLET 1 tab PO daily x 10 days LEVOFLOXACIN 500 MG ORAL TABLET 862964 LEVOFLOXACIN Inactive CYCLOBENZAPRINE HCL 10 MG ORAL TABLET 1 tablet by mouth BID prn had pain CYCLOBENZAPRINE HCL 10 MG ORAL TABLET 014678 CYCLOBENZAPRINE HCL Inactive ZOCOR 40 MG ORAL TABLET 1 tab by mouth daily 4 ZOCOR 40 MG ORAL TABLET 779008 SIMVASTATIN Inactive TUSSIONEX PENNKINETIC ER 10-8 MG/5ML [...] FLUTICASONE PROPIO EFE 50 MCG/ACT NASAL SUSPENSION 4272200 FLUTICASONE PROPIONATE Inactive TUSSIONEX PENNKINETIC ER 10-8 [...] three days PREDNISONE 20 MG ORAL TABLET 654000 PREDNIS ONE Inactive PROAIR HFA 108 (90 BASE) MCG/ACT INHALATION AEROSOL SO LUTION 2 puffs four times a day as needed PROAIR HFA 108 (90 B ASE) MCG/ACT INHALATION AEROSOL SOLUTION ALBUTEROL SULFATE Inactive ZITHROMAX Z-REYNA 250 MG ORAL TABLET 2 today, then 1 daily for 4 d ays ZITHROMAX Z-REYNA 250 MG ORAL TABLET 543567 AZITHROMYCIN Inactive CEFDINIR 300 MG ORAL CAPSULE by mouth twice a day 2010 CEFDINIR 300 MG ORAL CAPSULE 345214 CEFDINIR Inactive CEFDINIR 300 MG ORAL CAPSULE by mouth twice a day 2010 CEFDINIR 300 MG ORAL CAPSULE 943972 CEFDINIR Inactive CEFDINIR 300 MG ORAL CAPSULE by mouth twice a day 2010 CEFDINIR 300 MG ORAL CAPSULE 514019 CEFDINIR Inactive CEFDINIR 300 MG ORAL CAPSULE by mouth twice a day 2011 CEFDINIR 300 MG ORAL CAPSULE 424685 CEFDINIR Inactive ZITHROMAX 250 MG ORAL TABLET 2 po today, then 1 po q days 2-5 20 03/07/07 ZITHROMAX 250 MG ORAL TABLET 801119 AZITHROMYCIN Greer ctive CEFDINIR 300 MG ORAL CAPSULE by mouth twice a day 2011 CEFDINIR 300 MG ORAL CAPSULE 399394 CEFDINIR Inactive PREDNISONE 20 MG ORAL TABLET 2 tabs daily for 3 days, 1 tab daily for 3 days, 1/2 tab daily for 2 days PREDNISONE 20 MG ORAL T ABLET 900876 PREDNISONE Inactive AVELOX 400 MG ORAL TABLET 1 tab by mouth daily AVELOX 400 MG ORAL TABLET 756644 MOXIFLOXACIN HCL Inactive AVELOX 400 MG ORAL TABLET 1 tab by mouth daily AVELOX 400 MG ORAL TABLET 520682 MOXIFLOXACIN HCL Inactive PREDNISONE 20 MG ORAL TABLET Take 3 tabs daily for 3 d ays, 2 tabs daily for 3 days, 1 tab daily for 3 days, 1/2 tab daily for 3 days 11/07 PREDNISONE 20 MG ORAL TABLET 249150 PREDNISONE Inactive LEVAQUIN 500 MG ORAL TABLET take one po QD LEVAQUIN 500 MG ORAL TABLET 289520 LEVOFLOXACIN Inactive AZITHROMYCIN 250 MG ORAL TABLET 2 po qd x 1 day, then 1 po q d x 4 days AZITHROMYCIN 250 MG ORAL TABLET 519483 AZITHROMY GIOVANNI Inactive MEDROL 4 MG ORAL TABLET THERAPY PACK 6 tabs on day 1, 5 tabs on day 2, 4 tabs on day 3, 3 tabs on day 4, 2 tabs on day 5, 1 tab on day 6 2013 MEDROL 4 MG ORAL TABLET THERAPY PACK 067359 METHYLPREDNISOLONE Greer ctive CHERATUSSIN AC 100-10 MG/5ML ORAL SYRUP 5ml po q6hr PRN Cough 20 13/04/14 CHERATUSSIN AC 100-10 MG/5ML ORAL SYRUP 630157 GUAIFENE SIN-CODEINE Inactive TRIAMCINOLONE ACETONIDE 0.1 % EXTERNAL CREAM apply three roger es daily prn rash TRIAMCINOLONE ACETONIDE 0.1 % EXTERNAL CREAM 101 4314 TRIAMCINOLONE ACETONIDE Inactive AZITHROMYCIN 250 MG ORAL TABLET 2 po qd x 1 day, then 1 po q d x 4 days AZITHROMYCIN 250 MG ORAL TABLET 239486 AZITHROMY GIOVANNI Inactive MEDROL 4 MG ORAL TABLET THERAPY PACK 6 pills x 1 day, then 5 pills x 1 day then 4 pills x 1 day, then 3 pills x 1 day, then 2 pills x 1 day, then 1 pill x 1 day, then stop MEDROL 4 MG ORAL TABLET THERAPY PACK 054752 METHYLPREDNISOLONE Inactive AMOXICILLIN 500 MG ORAL CAPSULE 1 tab by mouth 3 times daily x 10 days AMOXICILLIN 500 MG ORAL CAPSULE 796026 AMOXICILL IN Inactive AMOXICILLIN 500 MG ORAL CAPSULE 1 tab by mouth 3 times daily x 10 days AMOXICILLIN 500 MG ORAL CAPSULE 816321 AMOXICILL IN Inactive ZITHROMAX 250 MG ORAL TABLET 2 po today, then 1 po q days 2-5 20 12/08/14 ZITHROMAX 250 MG ORAL TABLET 924556 AZITHROMYCIN Greer ctive AUGMENTIN 875-125 MG ORAL TABLET 1 po BID x 10 days 20 13/01/20 AUGMENTIN 875-125 MG ORAL TABLET 996758 AMOXICILLIN-POT CLAVULANATE Inactive ZITHROMAX Z-REYNA 250 MG ORAL TABLET 2 today, then 1 daily for 4 d ays ZITHROMAX Z-REYNA 250 MG ORAL TABLET 006419 AZITHROMYCIN Inactive ZITHROMAX 250 MG ORAL TABLET 2 po today, then 1 po q days 2-5 20 14/03/21 ZITHROMAX 250 MG ORAL TABLET 343981 AZITHROMYCIN Greer ctive ZITHROMAX Z-REYNA 250 MG ORAL TABLET 2 today, then 1 daily for 4 d ays ZITHROMAX Z-REYNA 250 MG ORAL TABLET 835403 AZITHROMYCIN Inactive CEFDINIR 300 MG ORAL CAPSULE 1 po BID x 10 days 06/21 CEFDINIR 300 MG ORAL CAPSULE 142479 CEFDINIR Inactive ZITHROMAX 250 MG ORAL TABLET 2 po today, then 1 po q days 2-5 20 13/08/10 ZITHROMAX 250 MG ORAL TABLET 979913 AZITHROMYCIN Greer ctive LEVAQUIN 500 MG ORAL TABLET 1 tablet by mouth daily 20 13/09/24 LEVAQUIN 500 MG ORAL TABLET 746737 LEVOFLOXACIN Inactive SINGULAIR 10 MG ORAL TABLET 1 po qday for allergies 20 14/01/12 SINGULAIR 10 MG ORAL TABLET 410482 MONTELUKAST SODIUM Inactive AMOXICILLIN 500 MG ORAL CAPSULE 2 po BID x 10 days 201 09/29/08 AMOXICILLIN 500 MG ORAL CAPSULE 677120 AMOXICILLIN Inactive PREDNISONE 20 MG ORAL TABLET 2 tabs daily for 3 days, 1 tab daily for 3 days, 1/2 tab daily for 2 days PREDNISONE 20 MG ORAL T ABLET 990317 PREDNISONE Inactive ZITHROMAX Z-REYNA 250 MG ORAL TABLET 2 today, then 1 daily for 4 d ays ZITHROMAX Z-REYNA 250 MG ORAL TABLET 383191 AZITHROMYCIN Inactive PREDNISONE 20 MG ORAL TABLET 2 tabs daily for 3 days, 1 tab daily for 3 days, 1/2 tab daily for 2 days PREDNISONE 20 MG ORAL T ABLET 536363 PREDNISONE Inactive ZITHROMAX 250 MG ORAL TABLET 2 po today, then 1 po q days 2-5 20 14/09/04 ZITHROMAX 250 MG ORAL TABLET 355418 AZITHROMYCIN [place] [facility] AMOXICILLIN 500 MG ORAL CAPSULE 1 cap by mouth three times a day AMOXICILLIN 500 MG ORAL CAPSULE 550143 AMOXICILLIN Inactive TERBINAFINE HCL 250 MG ORAL TABLET 1 qDay for nail fungus 7 TERBINAFINE HCL 250 MG ORAL TABLET 556018 TERBINAFINE HCL Inact nael AUGMENTIN 875-125 MG ORAL TABLET 1 po BID x 10 days 16/03/22 AUGMENTIN 875-125 MG ORAL TABLET 239903 AMOXICILLIN-POT CLAVULANATE Inactive PREDNISONE 20 MG ORAL TABLET 2 po qd x 5 days PREDNISONE 20 MG ORAL TABLET 729122 PREDNISONE Inactive AZITHROMYCIN 250 MG ORAL TABLET 2 po qd x 1 day, then 1 po q d x 4 days AZITHROMYCIN 250 MG ORAL TABLET 811974 AZITHROMY GIOVANNI Inactive Vital Signs Date Name [...] 3.6 mmol/L 3.5-5.2 sodium, serum 139 mmol/L 607-650 7842/10/12 sodium, serum 139 mmol/L 198-557 2035/10/12 urea nitrogen, blood 10 mg/dL 7-18 creatinine, serum 0.97 mg/dL 0.60-1.30 Estimated Glomerular Filtration Rate (calc) 62 (?) mL/min/1.73m2 = OR > 60 mL/min potassium, serum 3.8 mmol/L 3.5-5.2 chloride, serum 102 mmol/L 98-107 carbon dioxide, venous blood 29.4 mmol/L 21.0-32 .0 blood glucose 103 mg/dL 65-95 calcium, serum 8.8 mg/dL 8.5-10.1 Encounters Code Encounter Date Provider Facility CPT-69536 [id number] Vst-Est Level III 11:12:16 CDT Yanet Bess DO [facility] CPT-93570 Level 3 Est. Patient 11:34:49 SENIOR FIRMWARE ENGINEER Perez Mora MD [facility] CPT-71063 Level 4 Est. Patient 09:51:32 SENIOR FIRMWARE ENGINEER Carlton rich MD [facility] CPT-89112 Level 3 Est. Patient 10:26:00 SENIOR FIRMWARE ENGINEER Elise stephenson APRN [facility] CPT-33833 Level 3 Est. Patient 13:35:41 SENIOR FIRMWARE ENGINEER Carlton rich MD [facility] CPT-19380 Level 3 Est. Patient 10:03:52 SENIOR FIRMWARE ENGINEER Carlton rich MD [facility] CPT-60841 Level 3 Est. Patient 12:17:50 CDT Hugo Restrepo MD [facility] CPT-36579 Level 3 Est. Patient 13:42:38 CDT Elise Are ll [facility] CPT-67060 Level 3 Est. Patient 13:23:51 CDT Diya cobian [facility] CPT-67557 Level 3 Est. Patient 14:22:19 SENIOR FIRMWARE ENGINEER Diya cobian [facility] CPT-15839 Level 3 Est. Patient 10:11:46 CDT Carlton rich MD [facility] CPT-96165 Level 3 Est. Patient 17:29:43 CDT Elise Are ll [facility] CPT-08067 Level 3 Est. Patient 11:58:06 CDT Elise Are [facility] CPT-37935 Level 4 Est. Patient 14:36:51 CDT Carlton rich MD [facility] CPT-63058 Level 3 Est. Patient 18:16:00 SENIOR FIRMWARE ENGINEER Blaine HERNANDEZ [facility] CPT-89871 Level 3 Est. Patient 09:45:49 SENIOR FIRMWARE ENGINEER Carlton rich MD [facility] CPT-14587 Level 3 Est. Patient 13:19:20 CDT Carlton rich MD [facility] CPT-36443 Level 3 Est. Patient 13:06:43 CDT Ridge tam DO [facility] CPT-25839 Level 3 Est. Patient 10:03:07 CDT Perez Mora MD [facility] CPT-15865 Level 3 Est. Patient 19:50:35 SENIOR FIRMWARE ENGINEER Carlton rich MD [facility] CPT-89152 Level 4 Est. Patient 18:05:01 SENIOR FIRMWARE ENGINEER Carlton rich MD [facility] CPT-28010 Level 3 Est. Patient 10:45:55 SENIOR FIRMWARE ENGINEER Hugo Restrepo MD [facility] CPT-28462 Level 3 Est. Patient 14:12:49 CDT Griffin HERNANDEZ [facility] CPT-48797 Level 3 Est. Patient 17:37:24 CDT Carlton rich MD [facility] CPT-76961 Level 3 Est. Patient 16:51:54 CDT Carlton rich MD [facility] CPT-14459 Level 3 Est. Patient 12:18:11 CDT Hugo Restrepo MD [facility] CPT-29121 Level 3 Est. Patient 11:30:25 CDT Marcy crisostomo MD PhD [facility] CPT-13464 Level 3 Est. Patient 12:00:47 SENIOR FIRMWARE ENGINEER Carlton rich MD [facility] CPT-10342 Level 3 Est. Patient 16:31:06 SENIOR FIRMWARE ENGINEER Carlton rich MD [facility] CPT-81128 Level 3 Est. Patient 16:23:24 SENIOR FIRMWARE ENGINEER Ridge tam DO [facility] CPT-63444 Level 3 Est. Patient 12:34:12 CDT Carlton rich MD [facility] CPT-47131 Level 2 Est. Patient 15:43:33 CDT Robi armstrong MD [facility] CPT-74384 Level 4 Est. Patient 14:04:44 CDT Carlton rich MD [facility] CPT-47162 Level 3 Est. Patient 05:47:59 CDT Ridge tam [facility] CPT-39199 Level 3 Est. Patient 13:12:53 SENIOR FIRMWARE ENGINEER Carlton rich MD [facility] CPT-22493 Level 3 Est. Patient 14:26:53 CDT Hugo Restrepo MD [facility] Procedures Code Procedure Name Date Entry Date Standard Desc ription CPT-000 Give Appropriate Flu Vaccine 14:14:31 CDT 2 CPT-J1040 Depo Medrol 80 mg (Methyl Prednisolone A cetate) 10:42:44 CDT CPT-J1100 Decadron 8mg (Dexamethasone) 10:42:44 CDT 2 CPT-J0696 Rocephin 1gm Inj Solr 14:32:13 CDT CPT-J1020 Depo Medrol 60 mg (Methyl Prednisolone A cetate) 14:32:13 CDT CPT-J1100 Decadron 6mg (Dexamethasone) 14:32:13 CDT CPT-89436 Hip bilat min 2V w AP pelvis 13:16:20 CDT 2 CPT-19487 Pelvis only 13:07:33 CDT CPT-48582 Spec Collection and Handling Fee 11:25:12 C DT CPT-33139 Fluzone Quadrivalent Intramuscular Suspe nsion 0.5 ML 14:31:55 CDT CPT-15917 Abx/Therapy Injection 13:28:47 SENIOR FIRMWARE ENGINEER CPT-J2930 Solu Medrol 125 mg (Methyl Prednisolone Sodium Succinate) 12:00:47 SENIOR FIRMWARE ENGINEER CPT-18910 Venipuncture Draw Fee 11:33:31 CDT CPT-76427 EKG Trac and Interp 11:21:09 CDT CPT-46151 Chest 2V Frontal and Lat 11:21:09 CDT 12/15 CPT-31497 Venipuncture Draw Fee 08:02:34 CDT CPT-19352 Chest 2V Frontal and Lat 05:47:59 CDT 06/05
--- OUTSIDE RECORDS SUMMARY | 2019-10-08 09:26 | XMS REPORT | Clinical Summary ---
[...] URI 465.9 Inactive Ridge Bess DO Ac [place] upper respiratory infections of unspecified site Body [...] po q d x 4 days AZITHROMYCIN [id number] No Longer Active Ridge Bess DO Active PREDNISONE 20 MG ORAL TABLET two tabs by mouth today, then one tab by mouth days two and three and four PREDNISONE 70555665088 Active Lyndsay Mora MD Active PREDNISONE 20 MG ORAL TABLET 2 po qd x 5 days P REDNISONE 79596179704 No Longer Active Perez Mora MD Active PROAIR HFA 108 (90 BASE) MCG/ACT INHALATION AEROSOL SO LUTION 2 puffs four times a day as needed ALBUTEROL SULFATE 97142402853 No Long er Active Becky FUENTES Active ASPIRIN 81 MG ORAL TABLET 1 po qd ASPIRIN 39015758004 Active Carlton Hu MD Active PREDNISONE 20 MG ORAL TABLET 1 tab twice daily for 3 d ay, then one daily for three days PREDNISONE 89595447301 No Longer Active Carlton Hu MD Active AUGMENTIN 875-125 MG ORAL TABLET 1 po BID x 10 days 20 16/03/22 AMOXICILLIN-POT CLAVULANATE 06795000870 No Longer Active Elise Garcia APRN Active TERBINAFINE HCL 250 MG ORAL TABLET 1 qDay for nail fungus 7 TERBINAFINE HCL 05059314278 No Longer Active Carlton Hu MD A ctive TUSSIONEX PENNKINETIC ER 10-8 MG/5ML ORAL SUSPENSION E XTENDED RELEASE 5ml po q12hr PRN Cough HYDROCOD POLST-CHLORPHEN POLST 42850040187 Active Carlton Hu MD Active AMOXICILLIN 500 MG ORAL CAPSULE 1 cap by mouth three times a day AMOXICILLIN 25549089241 No Longer Active Carlton Hu MD Active ELMIRON 100 MG ORAL CAPSULE 2 tablets in the am and 1 tablet at hs PENTOSAN POLYSULFATE SODIUM 64575215333 No Longer Active Robert jade Hu MD Active MUCINEX D 60-600 MG ORAL TABLET EXTENDED RELEASE 12 HOUR 1 t ab po q am PSEUDOEPHEDRINE-GUAIFENESIN 60056803054 No Longer Act nael Carlton Hu MD Active MUCINEX DM MAXIMUM STRENGTH 60-1200 MG ORAL TABLET EXT ENDED RELEASE 12 HOUR 1 tab po q am DEXTROMETHORPHAN-GUAIFENESIN 00662953330 No Longer Active Carlton Hu MD Active TUSSIONEX PENNKINETIC ER 10-8 MG/5ML ORAL SUSPENSION E XTENDED RELEASE 5ml po q12hr PRN Cough HYDROCOD POLST-CHLORPHEN POLST 5 2036673447 No Longer Active Carlton Hu MD Active POTASSIUM CHLORIDE ER 20 MEQ ORAL TABLET EXTENDED RELE ASE Take 1 by mouth 4 times daily for 7 days POTASSIUM CHLORIDE 17872007226 No Longer Active Carlton Hu MD Active ZITHROMAX 250 MG ORAL TABLET 2 po today, then 1 po q days 2-5 14/09/04 AZITHROMYCIN 23665054737 No Longer Active Elise Garcia APRN Active TUSSIONEX PENNKINETIC ER 10-8 MG/5ML ORAL SUSPENSION E XTENDED RELEASE 5 ml twice a day as needed for cough HYDROCOD POLST-CHLORPH EN POLST 07252206967 No Longer Active Elise Garcia APRN Active MONTELUKAST SODIUM 10 MG ORAL TABLET 1 po daily for Allergy MONTELUKAST SODIUM 04776656313 Active Carlton Hu MD Ac tive TUSSIONEX PENNKINETIC ER 10-8 MG/5ML ORAL SUSPENSION E XTENDED RELEASE 5ml po q12hr PRN Cough HYDROCOD POLST-CHLORPHEN POLST 5 6504645640 No Longer Active Hugo Restrepo MD Active GABAPENTIN 100 MG ORAL CAPSULE 1 po BID for fibromyalgia GABAPENTIN 31366024103 Active Carlton Hu MD Active LYRICA 100 MG ORAL CAPSULE Take 1 tab po BID for fibromyalgia 20 11/08/21 PREGABALIN 96754895656 No Longer Active Elise Garcia [employer] A ctive PREDNISONE 20 MG ORAL TABLET 2 tabs daily for 3 days, 1 tab daily for 3 days, 1/2 tab daily for 2 days PREDNISONE 59846701965 No Longer Active Jillina Frazell [employer] Active TUSSIONEX PENNKINETIC ER 10-8 MG/5ML ORAL SUSPENSION E XTENDED RELEASE 5 mL PO q 12 hrs PRN cough HYDROCOD POLST-CHLORPHEN POLST 241558 71060 No Longer Active Jillina Frazell [employer] Active FLUTICASONE PROPIONATE 50 MCG/ACT NASAL SUSPENSION 2 s prays each nostril daily until bottle is empty FLUTICASONE PROPIONATE 302571726 99 No Longer Active Jillina Frazell [employer] Active ASMANEX 60 METERED DOSES 220 MCG/INH INHALATION AEROSO L POWDER BREATH ACTIVATED 1 puff bid with rinse after MOMETASONE FUROATE 6716702 4102 No Longer Active Jillina Frazell [employer] Active ZITHROMAX Z-REYNA 250 MG ORAL TABLET 2 today, then 1 daily for 4 d ays AZITHROMYCIN 97486493029 No Longer Active Elise Garcia [employer] Active TUSSIONEX PENNKINETIC ER 10-8 MG/5ML ORAL SUSPENSION E XTENDED RELEASE 5ml po q12hr PRN Cough HYDROCOD POLST-CHLORPHEN POLST 5 0865752580 No Longer Active Elise Garcia [employer] Active PREDNISONE 20 MG ORAL TABLET 2 tabs daily for 3 days, 1 tab daily for 3 days, 1/2 tab daily for 2 days PREDNISONE 22511979911 No Longer Active Jillina Frazell [employer] Active AMOXICILLIN 500 MG ORAL CAPSULE 2 po BID x 10 days 201 09/29/08 AMOXICILLIN 30107728256 No Longer Active Jillina Frazell [employer] Act nael SINGULAIR 10 MG ORAL TABLET 1 po qday for allergies 20 14/01/12 MONTELUKAST SODIUM 73570673388 No Longer Active Carlton Hu MD Active LEVAQUIN 500 MG ORAL TABLET 1 tablet by mouth daily 20 13/09/24 LEVOFLOXACIN 71729778420 No Longer Active Carlton Hu MD Acti ve FLUTICASONE PROPIONATE 50 MCG/ACT NASAL SUSPENSION 2 s prays each nostril daily for 2 weeks, then 1 spray each nostril daily. FLUTICASONE PROPIONATE 69818952407 Active Elise Areseema KHAN Active ZITHROMAX 250 MG ORAL TABLET 2 po today, then 1 po q days 2-5 20 13/08/10 AZITHROMYCIN 65074690182 No Longer Active Elise Garcia APRN Active XANAX 0.5 MG ORAL TABLET one tablet by mouth daily prn anxiety 2015 ALPRAZOLAM 05869063389 Active ALFREDO Holly Active CYMBALTA 30 MG ORAL CAPSULE DELAYED RELEASE PARTICLES 1 cap by mouth daily for depression DULOXETINE HCL 13531775647 Active ALFREDO Holly Active CEFDINIR 300 MG ORAL CAPSULE 1 po BID x 10 days CEFDINIR 13324318418 No Longer Active Carlton Hu MD Active ZOCOR 40 MG ORAL TABLET 1 tab by mouth daily SI MVASTATIN 88748210417 No Longer Active Carlton Hu MD Active CYCLOBENZAPRINE HCL 10 MG ORAL TABLET 1 tablet by mouth BID prn had pain CYCLOBENZAPRINE HCL 17573327010 No Longer Active Jayden Hu MD Active LEVOFLOXACIN 500 MG ORAL TABLET 1 tab PO daily x 10 days LEVOFLOXACIN 48809424751 No Longer Active Carlton Hu MD Acti ve PREDNISONE 20 MG ORAL TABLET 3 tab PO qd x 2d, 2 tab P O qd x 2d, 1 tab PO qd x 2d, 1/2 tab PO qd x 2d PREDNISONE 07494965250 No Lo nger Active Carlton Hu MD Active FLUTICASONE PROPIONATE 50 MCG/ACT NASAL SUSPENSION 1 t o 2 sprays each nostril daily FLUTICASONE PROPIONATE 60852709570 No Longer Ac tive Blaine HERNANDEZ Active CHERATUSSIN AC 100-10 MG/5ML ORAL SYRUP 1 tsp by mouth every 4 hours as needed for cough GUAIFENESIN-CODEINE 82432794605 No Longe r Active Blaine HERNANDEZ Active PROMETHAZINE-CODEINE 6.25-10 MG/5ML ORAL SYRUP 1 tsp b y mouth every 6 hours if needed for cough PROMETHAZINE-CODEINE 31038774874 No Longer Active Blaine HERNANDEZ Active CHERATUSSIN AC 100-10 MG/5ML ORAL SYRUP 1 tsp by mouth every 4 hours as needed for cough GUAIFENESIN-CODEINE 71157819907 No Longe r Active Blaine HERNANDEZ Active ZITHROMAX Z-REYNA 250 MG ORAL TABLET 2 today, then 1 daily for 4 d ays AZITHROMYCIN 43103984716 No Longer Active Columba Raida Act nael ZITHROMAX 250 MG ORAL TABLET 2 po today, then 1 po q days 2-5 20 14/03/21 AZITHROMYCIN 22887426441 No Longer Active Carlton Hu MD Active ZITHROMAX Z-REYNA 250 MG ORAL TABLET 2 today, then 1 daily for 4 d ays AZITHROMYCIN 05868860266 No Longer Active Columba Raida Act nael AUGMENTIN 875-125 MG ORAL TABLET 1 po BID x 10 days 13/01/20 AMOXICILLIN-POT CLAVULANATE 33235176212 No Longer Active Diya De Guzman APRN Active ZITHROMAX 250 MG ORAL TABLET 2 po today, then 1 po q days 2-5 20 12/08/14 AZITHROMYCIN 22216015332 No Longer Active Carlton Hu MD Active TRAMADOL HCL 50 MG ORAL TABLET 1 po tid with ES Tylenol TRAMADOL HCL 13445339839 Active ALFREDO Holly Active PREMARIN 0.625 MG ORAL TABLET TAKE 1 TAB BY MOUTH DAILY ESTROGENS CONJUGATED 57295194003 No Longer Active Ridge Bess DO A ctive CYMBALTA 30 MG ORAL CAPSULE DELAYED RELEASE PARTICLES 1 cap by mouth daily DULOXETINE HCL 47572284040 No Longer Active Ridge tam DO Active AMOXICILLIN 500 MG ORAL CAPSULE 1 tab by mouth 3 times daily x 10 days AMOXICILLIN 65392104851 No Longer Active Carlton bustamante MD Active AMOXICILLIN 500 MG ORAL CAPSULE 1 tab by mouth 3 times daily x 10 days AMOXICILLIN 73506856547 No Longer Active Carlton bustamante MD Active PROMETHAZINE-CODEINE 6.25-10 MG/5ML ORAL SYRUP 1 tsp b y mouth every 8 hours prn cough PROMETHAZINE-CODEINE 67467638607 No Longer Acti ve Carlton Hu MD Active MEDROL 4 MG ORAL TABLET THERAPY PACK 6 pills x 1 day, then 5 pills x 1 day then 4 pills x 1 day, then 3 pills x 1 day, then 2 pills x 1 day, then 1 pill x 1 day, then stop METHYLPREDNISOLONE 01575568662 No Long er Active Perez Mora MD Active AZITHROMYCIN 250 MG ORAL TABLET 2 po qd x 1 day, then 1 po q d x 4 days AZITHROMYCIN 57227361568 No Longer Active Perez Ambriz MD Active SYMBICORT 160-4.5 MCG/ACT INHALATION AEROSOL 2 puffs bid wit h rinse after BUDESONIDE-FORMOTEROL FUMARATE 30041818894 N o Longer Active Perez Mora MD Active LYRICA 75 MG ORAL CAPSULE TAKE 1 CAPSULE BY MOUTH TWICE DAILY PREGABALIN 39150759545 No Longer Active Carlton Hu MD Acti ve TOPAMAX 25 MG ORAL TABLET 1 qHS x 1 week, then 1 BID x 1 week, then 1 qAM and 2 qHS x 1 week, then 2 BID (migraine prevention) T OPIRAMATE 71612797173 No Longer Active Jerica FUENTES Active TOPAMAX 50 MG ORAL TABLET take 1 tab po BID for migraines. 07/02 TOPIRAMATE 04265222210 No Longer Active Jerica FUENTES Active TOPAMAX 100 MG ORAL TABLET Take 1 tablet po bid TO PIRAMATE 07057590546 Active ALFREDO Holly Active TRIAMCINOLONE ACETONIDE 0.1 % EXTERNAL CREAM apply three roger es daily prn rash TRIAMCINOLONE ACETONIDE 08229363732 No Longer Active Carlton Hu MD Active PAXIL 40 MG ORAL TABLET take 1 tab po qday for depression 0 PAROXETINE HCL 40711335538 Active ALFREDO Holly Active CHERATUSSIN AC 100-10 MG/5ML ORAL SYRUP 5ml po q6hr PRN Cough 20 13/04/14 GUAIFENESIN-CODEINE 34548179890 No Longer Active Carlton Hu MD Active MEDROL 4 MG ORAL TABLET THERAPY PACK 6 tabs on day 1, 5 tabs on day 2, 4 tabs on day 3, 3 tabs on day 4, 2 tabs on day 5, 1 tab on day 6 2013 METHYLPREDNISOLONE 12842698541 No Longer Active Perez Mora MD Active AZITHROMYCIN 250 MG ORAL TABLET 2 po qd x 1 day, then 1 po q d x 4 days AZITHROMYCIN 17948091808 No Longer Active Perez Ambriz MD Active PROPRANOLOL HCL 60 MG ORAL TABLET 1 PO Q D PROPRANOLOL HCL 54958880350 No Longer Active Perez Mora MD Activ e CHERATUSSIN AC 100-10 MG/5ML ORAL SYRUP take one tsp po Q 6h ours prn cough GUAIFENESIN-CODEINE 98870799543 No Longer Active Zia Mora MD Active AUGMENTIN 875-125 MG ORAL TABLET 1 tab by mouth twice daily with food AMOXICILLIN-POT CLAVULANATE 02318738647 No Longer Act nael Mora MD Active CHERATUSSIN AC 100-10 MG/5ML ORAL SYRUP 1 tsp by mouth every 4 hours as needed for cough GUAIFENESIN-CODEINE 64266361248 No Longe r Active Hugo Restrepo MD Active ACETAMINOPHEN-CODEINE #3 300-30 MG ORAL TABLET 1 PO Q 4-6 HRS DE N PAIN ACETAMINOPHEN-CODEINE 06776483579 No Longer Active Hugo Restrepo MD Active LEVAQUIN 500 MG ORAL TABLET take one po QD LEVO FLOXACIN 91862564444 No Longer Active Griffin HERNANDEZ Active PREDNISONE 20 MG ORAL TABLET Take 3 tabs daily for 3 d ays, 2 tabs daily for 3 days, 1 tab daily for 3 days, 1/2 tab daily for 3 days 11/07 PREDNISONE 51896454527 No Longer Active Carlton Hu MD Acti ve AVELOX 400 MG ORAL TABLET 1 tab by mouth daily MOXIFLOXACIN HCL 90848137824 No Longer Active Carlton Hu MD Active CHERATUSSIN AC 100-10 MG/5ML ORAL SYRUP 1 tsp by mouth every 4 hours as needed for cough GUAIFENESIN-CODEINE 97964730306 No Longe r Active Hugo Restrepo MD Active AVELOX 400 MG ORAL TABLET 1 tab by mouth daily MOXIFLOXACIN HCL 64334961755 No Longer Active Marcy De La Rosa MD PhD Active TERBINAFINE HCL 250 MG ORAL TABLET 1 qDay T ERBINAFINE HCL 63747943994 No Longer Active Marcy De La Rosa MD PhD Active CHERATUSSIN AC 100-10 MG/5ML ORAL SYRUP 1 tsp by mouth every 4 hours as needed for cough GUAIFENESIN-CODEINE 81253896287 No Longe r Active Marcy De La Rosa MD PhD Active AVELOX 400 MG ORAL TABLET 1 tab by mouth daily MOXIFLOXACIN HCL 04290980929 No Longer Active Marcy De La Rosa MD PhD Active HYDROCODONE-ACETAMINOPHEN 5-325 MG ORAL TABLET 1 po q 6hr PRN co ugh HYDROCODONE-ACETAMINOPHEN 37441832246 No Longer Active Marcy De La Rosa MD PhD Active PREDNISONE 20 MG ORAL TABLET 2 tabs daily for 3 days, 1 tab daily for 3 days, 1/2 tab daily for 2 days PREDNISONE 04783355029 No Longer Active Carlton Hu MD Active CEFDINIR 300 MG ORAL CAPSULE by mouth twice a day 2011 CEFDINIR 09672632314 No Longer Active Carlton Hu MD Acti ve HYDROCHLOROTHIAZIDE 25 MG ORAL TABLET 1 TAB PO DAILY HYDROCHLOROTHIAZIDE 32439380926 Active ALFREDO Holly Ac tive ACETAMINOPHEN-CODEINE #3 300-30 MG ORAL TABLET 1 tablet po q 4-6 hrs prn pain ACETAMINOPHEN-CODEINE 48642438932 No Longer Active Ridge Bess DO Active ZITHROMAX 250 MG ORAL TABLET 2 po today, then 1 po q days 2-5 20 03/07/07 AZITHROMYCIN 53395788310 No Longer Active Carlotn Hu MD Active CHERATUSSIN AC 100-10 MG/5ML ORAL SYRUP take 1 tsp po q4-6 h ours prn cough GUAIFENESIN-CODEINE 41521262978 No Longer Active Jayden Hu MD Active ACETAMINOPHEN-CODEINE #3 300-30 MG ORAL TABLET 1 PO Q 4-6 HR PRN PAIN ACETAMINOPHEN-CODEINE 36884071222 No Longer Active Da vilesley Hu MD Active LORTAB 7.5-500 MG/15ML ORAL ELIXIR 7.5 ml po q 4 hour prn cough HYDROCODONE-ACETAMINOPHEN 76170830459 No Longer Active Carlton Hu MD Active PREDNISONE 20 MG ORAL TABLET 1 po bid 3 days, then 1 po q day 3 days PREDNISONE 39044088855 No Longer Active Carlton Hu MD Active CEFDINIR 300 MG ORAL CAPSULE by mouth twice a day 2011 CEFDINIR 85076191871 No Longer Active Carlton Hu MD Acti ve CEFDINIR 300 MG ORAL CAPSULE by mouth twice a day 2010 CEFDINIR 57053850922 No Longer Active Carlton Hu MD Acti ve CEFDINIR 300 MG ORAL CAPSULE by mouth twice a day 2010 CEFDINIR 45772225086 No Longer Active Carlton Hu MD Acti ve TESSALON PERLES 100 MG ORAL CAPSULE 1 tablet by mouth 3 times daily as needed for cough BENZONATATE 78050092386 No Longer Active Carlton Hu MD Active CEFDINIR 300 MG ORAL CAPSULE by mouth twice a day 2010 CEFDINIR 57705175098 No Longer Active Carlton Hu MD Acti ve ZITHROMAX Z-REYNA 250 MG ORAL TABLET 2 today, then 1 daily for 4 d ays AZITHROMYCIN 80514242058 No Longer Active Hugo Restrepo MD Active TESSALON PERLES 100 MG ORAL CAPSULE 1 tablet by mouth 3 times daily as needed for cough TESSALON PERLES 100 MG ORAL CAPSULE 46825 7 BENZONATATE Inactive PREDNISONE 20 MG ORAL TABLET 1 po bid 3 days, then 1 po q day 3 days PREDNISONE 20 MG ORAL TABLET 752419 PREDNISONE [place] ctive LORTAB 7.5-500 MG/15ML ORAL ELIXIR 7.5 [...] cough CHERATUSSIN AC 100-10 MG/5ML ORAL SYRUP 854702 GUAIFENESIN-CODEINE Inactive ACETAMINOPHEN-CODEINE #3 300-30 MG ORAL TABLET 1 tablet po q 4-6 hrs prn pain ACETAMINOPHEN-CODEINE #3 300-30 MG ORAL TABLET ACETAMINOPHEN-CODEINE Inactive HYDROCODONE-ACETAMINOPHEN 5-325 MG ORAL TABLET 1 po q 6hr PRN co ugh HYDROCODONE-ACETAMINOPHEN 5-325 MG ORAL TABLET 980194 HYDROCODONE-ACETAMINOPHEN Inactive AVELOX 400 MG ORAL TABLET 1 tab by mouth daily AVELOX 400 MG ORAL TABLET 824689 MOXIFLOXACIN HCL Inactive CHERATUSSIN AC 100-10 MG/5ML ORAL SYRUP 1 tsp by mouth every 4 hours as needed for cough CHERATUSSIN AC 100-10 MG/5ML ORAL SYRUP 9 35705 GUAIFENESIN-CODEINE Inactive TERBINAFINE HCL 250 MG ORAL TABLET 1 qDay 07/08 TERBINAFINE HCL 250 MG ORAL TABLET 289948 TERBINAFINE HCL Inactive CHERATUSSIN AC 100-10 MG/5ML ORAL SYRUP 1 tsp by mouth every 4 hours as needed for cough CHERATUSSIN AC 100-10 MG/5ML ORAL SYRUP 9 15464 GUAIFENESIN-CODEINE Inactive ACETAMINOPHEN-CODEINE #3 300-30 MG ORAL TABLET 1 PO Q 4-6 HRS DE N PAIN ACETAMINOPHEN-CODEINE #3 300-30 MG ORAL TABLET ACETAMINOPHEN-CODEINE Inactive CHERATUSSIN AC 100-10 MG/5ML ORAL SYRUP 1 tsp by mouth every 4 hours as needed for cough CHERATUSSIN AC 100-10 MG/5ML ORAL SYRUP 9 40995 GUAIFENESIN-CODEINE Inactive AUGMENTIN 875-125 MG ORAL TABLET 1 tab by mouth twice daily with food AUGMENTIN 875-125 MG ORAL TABLET 083690 AMOXICIL MADELINE-POT CLAVULANATE Inactive CHERATUSSIN AC 100-10 MG/5ML ORAL SYRUP take one tsp po Q 6h ours prn cough CHERATUSSIN AC 100-10 MG/5ML ORAL SYRUP 879141 GUAIFENESIN-CODEINE Inactive PROPRANOLOL HCL 60 MG ORAL TABLET 1 PO Q D PROPRANOLOL HCL 60 MG ORAL TABLET 107687 PROPRANOLOL HCL Inactive TOPAMAX 50 MG ORAL TABLET take 1 tab po BID for migraines. 07/02 TOPAMAX 50 MG ORAL TABLET 145279 TOPIRAMATE Inacti ve TOPAMAX 25 MG ORAL TABLET 1 qHS x 1 week, then 1 BID x 1 week, then 1 qAM and 2 qHS x 1 week, then 2 BID (migraine prevention) TOPAMAX 25 MG ORAL TABLET 600869 TOPIRAMATE Inactive LYRICA 75 MG ORAL CAPSULE TAKE 1 CAPSULE BY MOUTH TWICE DAILY LYRICA 75 MG ORAL CAPSULE PREGABALIN Inactive SYMBICORT 160-4.5 MCG/ACT INHALATION AEROSOL 2 puffs bid wit h rinse after SYMBICORT 160-4.5 MCG/ACT INHALATION AEROSOL BUDESONIDE- FORMOTEROL FUMARATE Inactive PROMETHAZINE-CODEINE 6.25-10 MG/5ML ORAL SYRUP 1 tsp b y mouth every 8 hours prn cough PROMETHAZINE-CODEINE 6.25-10 MG/ 5ML ORAL SYRUP 986037 PROMETHAZINE-CODEINE Inactive CYMBALTA 30 MG ORAL CAPSULE DELAYED RELEASE PARTICLES 1 cap by mouth daily CYMBALTA 30 MG ORAL CAPSULE DELAYED RELE ASE PARTICLES 936018 DULOXETINE HCL Inactive PREMARIN 0.625 MG ORAL TABLET TAKE 1 TAB BY MOUTH DAILY PREMARIN 0.625 MG ORAL TABLET ESTROGENS CONJUGATED Inactive CHERATUSSIN AC 100-10 MG/5ML ORAL SYRUP 1 tsp by mouth every 4 hours as needed for cough CHERATUSSIN AC 100-10 MG/5ML ORAL SYRUP 9 89289 GUAIFENESIN-CODEINE Inactive PROMETHAZINE-CODEINE 6.25-10 MG/5ML ORAL SYRUP 1 tsp b y mouth every 6 hours if needed for cough PROMETHAZINE-CODEINE 6.25-10 MG/5ML ORAL SYRUP 230549 PROMETHAZINE-CODEINE Inactive CHERATUSSIN AC 100-10 MG/5ML ORAL SYRUP 1 tsp by mouth every 4 hours as needed for cough CHERATUSSIN AC 100-10 MG/5ML ORAL SYRUP 9 62942 GUAIFENESIN-CODEINE Inactive FLUTICASONE PROPIONATE 50 MCG/ACT NASAL SUSPENSION 1 t o 2 sprays each nostril daily FLUTICASONE PROPIONATE 50 MCG/AC T NASAL SUSPENSION 7918544 FLUTICASONE PROPIONATE Inactive PREDNISONE 20 MG ORAL TABLET 3 tab PO qd x 2d, 2 tab P O qd x 2d, 1 tab PO qd x 2d, 1/2 tab PO qd x 2d PREDNISONE 20 MG ORAL TAB LET 230078 PREDNISONE Inactive LEVOFLOXACIN 500 MG ORAL TABLET 1 tab PO daily x 10 days LEVOFLOXACIN 500 MG ORAL TABLET 738941 LEVOFLOXACIN Inactive CYCLOBENZAPRINE HCL 10 MG ORAL TABLET 1 tablet by mouth BID prn had pain CYCLOBENZAPRINE HCL 10 MG ORAL TABLET 314289 CYCLOBENZAPRINE HCL Inactive ZOCOR 40 MG ORAL TABLET 1 tab by mouth daily 4 ZOCOR 40 MG ORAL TABLET 378027 SIMVASTATIN Inactive TUSSIONEX PENNKINETIC ER 10-8 MG/5ML [...] FLUTICASONE PROPIO EFE 50 MCG/ACT NASAL SUSPENSION 4504456 FLUTICASONE PROPIONATE Inactive TUSSIONEX PENNKINETIC ER 10-8 [...] three days PREDNISONE 20 MG ORAL TABLET 760431 PREDNIS ONE Inactive PROAIR HFA 108 (90 BASE) MCG/ACT INHALATION AEROSOL SO LUTION 2 puffs four times a day as needed PROAIR HFA 108 (90 B ASE) MCG/ACT INHALATION AEROSOL SOLUTION ALBUTEROL SULFATE Inactive ZITHROMAX Z-REYNA 250 MG ORAL TABLET 2 today, then 1 daily for 4 d ays ZITHROMAX Z-REYNA 250 MG ORAL TABLET 712002 AZITHROMYCIN Inactive CEFDINIR 300 MG ORAL CAPSULE by mouth twice a day 2010 CEFDINIR 300 MG ORAL CAPSULE 266162 CEFDINIR Inactive CEFDINIR 300 MG ORAL CAPSULE by mouth twice a day 2010 CEFDINIR 300 MG ORAL CAPSULE 904509 CEFDINIR Inactive CEFDINIR 300 MG ORAL CAPSULE by mouth twice a day 2010 CEFDINIR 300 MG ORAL CAPSULE 416963 CEFDINIR Inactive CEFDINIR 300 MG ORAL CAPSULE by mouth twice a day 2011 CEFDINIR 300 MG ORAL CAPSULE 442863 CEFDINIR Inactive ZITHROMAX 250 MG ORAL TABLET 2 po today, then 1 po q days 2-5 20 03/07/07 ZITHROMAX 250 MG ORAL TABLET 225935 AZITHROMYCIN [place] ctive CEFDINIR 300 MG ORAL CAPSULE by mouth twice a day 2011 CEFDINIR 300 MG ORAL CAPSULE 192062 CEFDINIR Inactive PREDNISONE 20 MG ORAL TABLET 2 tabs daily for 3 days, 1 tab daily for 3 days, 1/2 tab daily for 2 days PREDNISONE 20 MG ORAL T ABLET 917410 PREDNISONE Inactive AVELOX 400 MG ORAL TABLET 1 tab by mouth daily AVELOX 400 MG ORAL TABLET 534337 MOXIFLOXACIN HCL Inactive AVELOX 400 MG ORAL TABLET 1 tab by mouth daily AVELOX 400 MG ORAL TABLET 591202 MOXIFLOXACIN HCL Inactive PREDNISONE 20 MG ORAL TABLET Take 3 tabs daily for 3 d ays, 2 tabs daily for 3 days, 1 tab daily for 3 days, 1/2 tab daily for 3 days 11/07 PREDNISONE 20 MG ORAL TABLET 921776 PREDNISONE Inactive LEVAQUIN 500 MG ORAL TABLET take one po QD LEVAQUIN 500 MG ORAL TABLET 499319 LEVOFLOXACIN Inactive AZITHROMYCIN 250 MG ORAL TABLET 2 po qd x 1 day, then 1 po q d x 4 days AZITHROMYCIN 250 MG ORAL TABLET 045492 AZITHROMY GIOVANNI Inactive MEDROL 4 MG ORAL TABLET THERAPY PACK 6 tabs on day 1, 5 tabs on day 2, 4 tabs on day 3, 3 tabs on day 4, 2 tabs on day 5, 1 tab on day 6 2013 MEDROL 4 MG ORAL TABLET THERAPY PACK 824079 METHYLPREDNISOLONE [place] ctive CHERATUSSIN AC 100-10 MG/5ML ORAL SYRUP 5ml po q6hr PRN Cough 20 13/04/14 CHERATUSSIN AC 100-10 MG/5ML ORAL SYRUP 463951 GUAIFENE SIN-CODEINE Inactive TRIAMCINOLONE ACETONIDE 0.1 % EXTERNAL CREAM apply three roger es daily prn rash TRIAMCINOLONE ACETONIDE 0.1 % EXTERNAL CREAM 101 4314 TRIAMCINOLONE ACETONIDE Inactive AZITHROMYCIN 250 MG ORAL TABLET 2 po qd x 1 day, then 1 po q d x 4 days AZITHROMYCIN 250 MG ORAL TABLET 433031 AZITHROMY GIOVANNI Inactive MEDROL 4 MG ORAL TABLET THERAPY PACK 6 pills x 1 day, then 5 pills x 1 day then 4 pills x 1 day, then 3 pills x 1 day, then 2 pills x 1 day, then 1 pill x 1 day, then stop MEDROL 4 MG ORAL TABLET THERAPY PACK 352874 METHYLPREDNISOLONE Inactive AMOXICILLIN 500 MG ORAL CAPSULE 1 tab by mouth 3 times daily x 10 days AMOXICILLIN 500 MG ORAL CAPSULE 623374 AMOXICILL IN Inactive AMOXICILLIN 500 MG ORAL CAPSULE 1 tab by mouth 3 times daily x 10 days AMOXICILLIN 500 MG ORAL CAPSULE 596375 AMOXICILL IN Inactive ZITHROMAX 250 MG ORAL TABLET 2 po today, then 1 po q days 2-5 20 12/08/14 ZITHROMAX 250 MG ORAL TABLET 739011 AZITHROMYCIN [place] ctive AUGMENTIN 875-125 MG ORAL TABLET 1 po BID x 10 days 20 13/01/20 AUGMENTIN 875-125 MG ORAL TABLET 511977 AMOXICILLIN-POT CLAVULANATE Inactive ZITHROMAX Z-REYNA 250 MG ORAL TABLET 2 today, then 1 daily for 4 d ays ZITHROMAX Z-REYNA 250 MG ORAL TABLET 597443 AZITHROMYCIN Inactive ZITHROMAX 250 MG ORAL TABLET 2 po today, then 1 po q days 2-5 20 14/03/21 ZITHROMAX 250 MG ORAL TABLET 634039 AZITHROMYCIN [place] ctive ZITHROMAX Z-REYNA 250 MG ORAL TABLET 2 today, then 1 daily for 4 d ays ZITHROMAX Z-REYNA 250 MG ORAL TABLET 770453 AZITHROMYCIN Inactive CEFDINIR 300 MG ORAL CAPSULE 1 po BID x 10 days 06/21 CEFDINIR 300 MG ORAL CAPSULE 449994 CEFDINIR Inactive ZITHROMAX 250 MG ORAL TABLET 2 po today, then 1 po q days 2-5 20 13/08/10 ZITHROMAX 250 MG ORAL TABLET 101388 AZITHROMYCIN [place] ctive LEVAQUIN 500 MG ORAL TABLET 1 tablet by mouth daily 20 13/09/24 LEVAQUIN 500 MG ORAL TABLET 704792 LEVOFLOXACIN Inactive SINGULAIR 10 MG ORAL TABLET 1 po qday for allergies 20 14/01/12 SINGULAIR 10 MG ORAL TABLET 20010504 MONTELUKAST SODIUM Inactive AMOXICILLIN 500 MG ORAL CAPSULE 2 po BID x 10 days 201 09/29/08 AMOXICILLIN 500 MG ORAL CAPSULE 666288 AMOXICILLIN Inactive PREDNISONE 20 MG ORAL TABLET 2 tabs daily for 3 days, 1 tab daily for 3 days, 1/2 tab daily for 2 days PREDNISONE 20 MG ORAL T ABLET 011064 PREDNISONE Inactive ZITHROMAX Z-REYNA 250 MG ORAL TABLET 2 today, then 1 daily for 4 d ays ZITHROMAX Z-REYNA 250 MG ORAL TABLET 931028 AZITHROMYCIN Inactive PREDNISONE 20 MG ORAL TABLET 2 tabs daily for 3 days, 1 tab daily for 3 days, 1/2 tab daily for 2 days PREDNISONE 20 MG ORAL T ABLET 381153 PREDNISONE Inactive ZITHROMAX 250 MG ORAL TABLET 2 po today, then 1 po q days 2-5 20 14/09/04 ZITHROMAX 250 MG ORAL TABLET 524165 AZITHROMYCIN Greer ctive AMOXICILLIN 500 MG ORAL CAPSULE 1 cap by mouth three times a day AMOXICILLIN 500 MG ORAL CAPSULE 926843 AMOXICILLIN Inactive TERBINAFINE HCL 250 MG ORAL TABLET 1 qDay for nail fungus 7 TERBINAFINE HCL 250 MG ORAL TABLET 979561 TERBINAFINE HCL Inact nael AUGMENTIN 875-125 MG ORAL TABLET 1 po BID x 10 days 16/03/22 AUGMENTIN 875-125 MG ORAL TABLET 310116 AMOXICILLIN-POT CLAVULANATE Inactive PREDNISONE 20 MG ORAL TABLET 2 po qd x 5 days PREDNISONE 20 MG ORAL TABLET 221857 PREDNISONE Inactive AZITHROMYCIN 250 MG ORAL TABLET 2 po qd x 1 day, then 1 po q d x 4 days AZITHROMYCIN 250 MG ORAL TABLET 933987 AZITHROMY GIOVANNI Inactive Vital Signs Date Name [...] - Chem istry sodium, serum 139 mmol/L 160-215 5148/03/19 potassium, serum 3.6 mmol/L 3.5-5.2 chloride, serum 100 mmol/L 98-107 carbon dioxide, venous blood 30.3 mmol/L 21.0-32 .0 blood glucose 101 mg/dL 65-110 calcium, serum 9.4 mg/dL 8.5-10.1 urea nitrogen, blood 10 mg/dL 7-18 creatinine, serum 0.96 mg/dL 0.60-1.30 sodium, serum 139 mmol/L 400-151 9547/10/12 potassium, serum 3.8 mmol/L 3.5-5.2 chloride, serum 102 mmol/L 98-107 carbon dioxide, venous blood 29.4 mmol/L 21.0-32 .0 blood glucose 103 mg/dL 65-95 calcium, serum 8.8 mg/dL 8.5-10.1 urea nitrogen, blood 10 mg/dL 7-18 creatinine, serum 0.97 mg/dL 0.60-1.30 Estimated Glomerular Filtration Rate (calc) 62 (?) mL/min/1.73m2 = OR > 60 mL/min Encounters Code Encounter Date Provider Facility CPT-05050 [id number] Vst-Est Level III 11:12:16 CDT Br tami Bess DO [facility] CPT-08120 Level 3 Est. Patient 11:34:49 T[employer] EQUIPMENT INSTALLER Perez Mora MD [facility] CPT-94618 Level 4 Est. Patient 09:51:32 TOWER EQUIPMENT INSTALLER Carlton rich MD [facility] CPT-12084 Level 3 Est. Patient 10:26:00 TOWER EQUIPMENT INSTALLER Elise stephenson APRN [facility] CPT-65063 Level 3 Est. Patient 13:35:41 TOWER EQUIPMENT INSTALLER Carlton rich MD [facility] CPT-92482 Level 3 Est. Patient 10:03:52 TOWER EQUIPMENT INSTALLER Carlton rich MD [facility] CPT-22788 Level 3 Est. Patient 12:17:50 CDT Hugo Restrepo MD [facility] CPT-07321 Level 3 Est. Patient 13:42:38 CDT Elise Are ll [facility] CPT-19547 Level 3 Est. Patient 13:23:51 CDT Diya cobian [facility] CPT-25586 Level 3 Est. Patient 14:22:19 TOWER EQUIPMENT INSTALLER Diya cobian [facility] CPT-98135 Level 3 Est. Patient 10:11:46 CDT Carlton rich MD [facility] CPT-23784 Level 3 Est. Patient 17:29:43 CDT Elise Are ll [facility] CPT-75316 Level 3 Est. Patient 11:58:06 CDT Elise Are ll [facility] CPT-73623 Level 4 Est. Patient 14:36:51 CDT Carlton rich MD [facility] CPT-73312 Level 3 Est. Patient 18:16:00 TOWER EQUIPMENT INSTALLER Blaine HERNANDEZ [facility] CPT-01326 Level 3 Est. Patient 09:45:49 TOWER EQUIPMENT INSTALLER Carlton rich MD [facility] CPT-38289 Level 3 Est. Patient 13:19:20 CDT Carlton rich MD [facility] CPT-63478 Level 3 Est. Patient 13:06:43 CDT Ridge tam DO [facility] CPT-83111 Level 3 Est. Patient 10:03:07 CDT Perez Mora MD [facility] CPT-72279 Level 3 Est. Patient 19:50:35 TOWER EQUIPMENT INSTALLER Carlton rich MD [facility]-78220 Level 4 Est. Patient 18:05:01 TOWER EQUIPMENT INSTALLER Carlton rich MD [facility]-12518 Level 3 Est. Patient 10:45:55 TOWER EQUIPMENT INSTALLER Hugo Restrepo MD [facility]-32925 Level 3 Est. Patient 14:12:49 CDT Griffin HERNANDEZ [facility]-71523 Level 3 Est. Patient 17:37:24 CDT Carlton rich MD [facility]-03044 Level 3 Est. Patient 16:51:54 CDT Carlton rich MD [facility]-99617 Level 3 Est. Patient 12:18:11 CDT Hugo Restrepo MD [facility]-29356 Level 3 Est. Patient 11:30:25 CDT Marcy crisostomo MD PhD [facility]-59918 Level 3 Est. Patient 12:00:47 TOWER EQUIPMENT INSTALLER Carlton rich MD [facility]-72709 Level 3 Est. Patient 16:31:06 TOWER EQUIPMENT INSTALLER Carlton rich MD [facility]-26417 Level 3 Est. Patient 16:23:24 TOWER EQUIPMENT INSTALLER Ridge tam DO [facility]-56410 Level 3 Est. Patient 12:34:12 CDT Carlton rich MD [facility] CPT-85901 Level 2 Est. Patient 15:43:33 CDT Robi armstrong MD [facility]-11007 Level 4 Est. Patient 14:04:44 CDT Carlton rich MD [facility]-82892 Level 3 Est. Patient 05:47:59 CDT Ridge tam [facility]-99963 Level 3 Est. Patient 13:12:53 TOWER EQUIPMENT INSTALLER Carlton rich MD [facility] CPT-55488 Level 3 Est. Patient 14:26:53 CDT Hugo [...] CPT-J1100 Decadron 6mg (Dexamethasone) 14:32:13 CDT 2 CPT-56875 Hip bilat min 2V w AP pelvis 13:16:20 CDT 2 CPT-47661 Pelvis only 13:07:33 CDT CPT-27295 Spec Collection and Handling Fee 11:25:12 C DT CPT-61430 Fluzone Quadrivalent Intramuscular Suspe nsion 0.5 ML 14:31:55 CDT CPT-53117 Abx/Therapy Injection 13:28:47 TOWER EQUIPMENT INSTALLER CPT-J2930 Solu Medrol 125 mg (Methyl Prednisolone Sodium Succinate) 12:00:47 TOWER EQUIPMENT INSTALLER CPT-51917 Venipuncture Draw Fee 11:33:31 CDT CPT-70158 EKG Trac and Interp 11:21:09 CDT CPT-77133 Chest 2V Frontal and Lat 11:21:09 CDT 12/15 CPT-46237 Venipuncture Draw Fee 08:02:34 CDT CPT-80457 Chest 2V Frontal and Lat 05:47:59 CDT 06/05
--- OUTSIDE RECORDS SUMMARY | 2019-10-08 09:26 | XMS REPORT | Clinical Summary ---
Author Author Caitlin, Juliana Martinez Organization [facility] Address Unknown Phone Unavailable Allergies, Adverse [...] of unspecified site Pharyngitis acute 462 Resolved Huog Restrepo MD Acute pharyngitis Rhinitis, acute 460 [...] po q d x 4 days AZITHROMYCIN [id number] No Longer Active Ridge Bess DO Active PREDNISONE 20 MG ORAL TABLET two tabs by mouth today, then one tab by mouth days two and three and four PREDNISONE 93803682344 Active Lyndsay Mora MD Active PREDNISONE 20 MG ORAL TABLET 2 po qd x 5 days P REDNISONE 48678862864 No Longer Active Perez Mora MD Active PROAIR HFA 108 (90 BASE) MCG/ACT INHALATION AEROSOL SO LUTION 2 puffs four times a day as needed ALBUTEROL SULFATE 20411608634 No Long er Active Becky FUENTES Active ASPIRIN 81 MG ORAL TABLET 1 po qd ASPIRIN 28284512076 Active Carlton Hu MD Active PREDNISONE 20 MG ORAL TABLET 1 tab twice daily for 3 d ay, then one daily for three days PREDNISONE 55215368423 No Longer Active Carlton Hu MD Active AUGMENTIN 875-125 MG ORAL TABLET 1 po BID x 10 days 20 16/03/22 AMOXICILLIN-POT CLAVULANATE 17021136211 No Longer Active Elise Garcia APRN Active TERBINAFINE HCL 250 MG ORAL TABLET 1 qDay for nail fungus 7 TERBINAFINE HCL 92423193660 No Longer Active Carlton Hu MD A ctive TUSSIONEX PENNKINETIC ER 10-8 MG/5ML ORAL SUSPENSION E XTENDED RELEASE 5ml po q12hr PRN Cough HYDROCOD POLST-CHLORPHEN POLST 15023093287 Active Carlton Hu MD Active AMOXICILLIN 500 MG ORAL CAPSULE 1 cap by mouth three times a day AMOXICILLIN 61155016073 No Longer Active Carlton Hu MD Active ELMIRON 100 MG ORAL CAPSULE 2 tablets in the am and 1 tablet at hs PENTOSAN POLYSULFATE SODIUM 97845235275 No Longer Active Robert Hu MD Active MUCINEX D 60-600 MG ORAL TABLET EXTENDED RELEASE 12 HOUR 1 t ab po q am PSEUDOEPHEDRINE-GUAIFENESIN 63548017220 No Longer Act nael Carlton Hu MD Active MUCINEX DM MAXIMUM STRENGTH 60-1200 MG ORAL TABLET EXT ENDED RELEASE 12 HOUR 1 tab po q am DEXTROMETHORPHAN-GUAIFENESIN 57402489218 No Longer Active aCrlton Hu MD Active TUSSIONEX PENNKINETIC ER 10-8 MG/5ML ORAL SUSPENSION E XTENDED RELEASE 5ml po q12hr PRN Cough HYDROCOD POLST-CHLORPHEN POLST 5 5914365226 No Longer Active Carlton Hu MD Active POTASSIUM CHLORIDE ER 20 MEQ ORAL TABLET EXTENDED RELE ASE Take 1 by mouth 4 times daily for 7 days POTASSIUM CHLORIDE 88304224665 No Longer Active Carlton Hu MD Active ZITHROMAX 250 MG ORAL TABLET 2 po today, then 1 po q days 2-5 14/09/04 AZITHROMYCIN 19174434652 No Longer Active Elise Garcia APRN Active TUSSIONEX PENNKINETIC ER 10-8 MG/5ML ORAL SUSPENSION E XTENDED RELEASE 5 ml twice a day as needed for cough HYDROCOD POLST-CHLORPH EN POLST 50712074905 No Longer Active Elise Garcia APRN Active MONTELUKAST SODIUM 10 MG ORAL TABLET 1 po daily for Allergy MONTELUKAST SODIUM 42570528539 Active Carlton Hu MD Ac tive TUSSIONEX PENNKINETIC ER 10-8 MG/5ML ORAL SUSPENSION E XTENDED RELEASE 5ml po q12hr PRN Cough HYDROCOD POLST-CHLORPHEN POLST 5 6357537681 No Longer Active Hugo Restrepo MD Active GABAPENTIN 100 MG ORAL CAPSULE 1 po BID for fibromyalgia GABAPENTIN 35051184866 Active Carlton Hu MD Active LYRICA 100 MG ORAL CAPSULE Take 1 tab po BID for fibromyalgia 20 11/08/21 PREGABALIN 17121029389 No Longer Active Elise Garcia HOTEL RECREATIONAL FACILITIES MANAGER A ctive PREDNISONE 20 MG ORAL TABLET 2 tabs daily for 3 days, 1 tab daily for 3 days, 1/2 tab daily for 2 days PREDNISONE 40591248144 No Longer Active Jillina Frazell HOTEL RECREATIONAL FACILITIES MANAGER Active TUSSIONEX PENNKINETIC ER 10-8 MG/5ML ORAL SUSPENSION E XTENDED RELEASE 5 mL PO q 12 hrs PRN cough HYDROCOD POLST-CHLORPHEN POLST 021515 47354 No Longer Active Jillina Frazell HOTEL RECREATIONAL FACILITIES MANAGER Active FLUTICASONE PROPIONATE 50 MCG/ACT NASAL SUSPENSION 2 s prays each nostril daily until bottle is empty FLUTICASONE PROPIONATE 880492057 99 No Longer Active Jillina Frazell HOTEL RECREATIONAL FACILITIES MANAGER Active ASMANEX 60 METERED DOSES 220 MCG/INH INHALATION AEROSO L POWDER BREATH ACTIVATED 1 puff bid with rinse after MOMETASONE FUROATE 6682977 4102 No Longer Active Jillina Frazell HOTEL RECREATIONAL FACILITIES MANAGER Active ZITHROMAX Z-REYNA 250 MG ORAL TABLET 2 today, then 1 daily for 4 d ays AZITHROMYCIN 55253313788 No Longer Active Elise Garcia HOTEL RECREATIONAL FACILITIES MANAGER Active TUSSIONEX PENNKINETIC ER 10-8 MG/5ML ORAL SUSPENSION E XTENDED RELEASE 5ml po q12hr PRN Cough HYDROCOD POLST-CHLORPHEN POLST 5 6631512255 No Longer Active Elise Garcia HOTEL RECREATIONAL FACILITIES MANAGER Active PREDNISONE 20 MG ORAL TABLET 2 tabs daily for 3 days, 1 tab daily for 3 days, 1/2 tab daily for 2 days PREDNISONE 19717754891 No Longer Active Jillina Frazell HOTEL RECREATIONAL FACILITIES MANAGER Active AMOXICILLIN 500 MG ORAL CAPSULE 2 po BID x 10 days 201 09/29/08 AMOXICILLIN 14570181010 No Longer Active Jillina Frazell HOTEL RECREATIONAL FACILITIES MANAGER Act nael SINGULAIR 10 MG ORAL TABLET 1 po qday for allergies 20 14/01/12 MONTELUKAST SODIUM 09313317662 No Longer Active Carlton Hu MD Active LEVAQUIN 500 MG ORAL TABLET 1 tablet by mouth daily 20 13/09/24 LEVOFLOXACIN 93443983821 No Longer Active Carlton Hu MD Acti ve FLUTICASONE PROPIONATE 50 MCG/ACT NASAL SUSPENSION 2 s prays each nostril daily for 2 weeks, then 1 spray each nostril daily. FLUTICASONE PROPIONATE 83348609493 Active Elise Areseema KHAN Active ZITHROMAX 250 MG ORAL TABLET 2 po today, then 1 po q days 2-5 20 13/08/10 AZITHROMYCIN 42305322453 No Longer Active Elise Garcia APRN Active XANAX 0.5 MG ORAL TABLET one tablet by mouth daily prn anxiety 2015 ALPRAZOLAM 94958345142 Active ALFREDO Holly Active CYMBALTA 30 MG ORAL CAPSULE DELAYED RELEASE PARTICLES 1 cap by mouth daily for depression DULOXETINE HCL 44722099919 Active ALFREDO Holly Active CEFDINIR 300 MG ORAL CAPSULE 1 po BID x 10 days CEFDINIR 86739560178 No Longer Active Carlton Hu MD Active ZOCOR 40 MG ORAL TABLET 1 tab by mouth daily SI MVASTATIN 32080601691 No Longer Active Carlton Hu MD Active CYCLOBENZAPRINE HCL 10 MG ORAL TABLET 1 tablet by mouth BID prn had pain CYCLOBENZAPRINE HCL 52146763650 No Longer Active Jayden Hu MD Active LEVOFLOXACIN 500 MG ORAL TABLET 1 tab PO daily x 10 days LEVOFLOXACIN 51918284163 No Longer Active Carlton Hu MD Acti ve PREDNISONE 20 MG ORAL TABLET 3 tab PO qd x 2d, 2 tab P O qd x 2d, 1 tab PO qd x 2d, 1/2 tab PO qd x 2d PREDNISONE 30361749017 No Lo nger Active Carlton Hu MD Active FLUTICASONE PROPIONATE 50 MCG/ACT NASAL SUSPENSION 1 t o 2 sprays each nostril daily FLUTICASONE PROPIONATE 40975230004 No Longer Ac tive Blaine HERNANDEZ Active CHERATUSSIN AC 100-10 MG/5ML ORAL SYRUP 1 tsp by mouth every 4 hours as needed for cough GUAIFENESIN-CODEINE 42354911275 No Longe r Active Blaine EHRNANDEZ Active PROMETHAZINE-CODEINE 6.25-10 MG/5ML ORAL SYRUP 1 tsp b y mouth every 6 hours if needed for cough PROMETHAZINE-CODEINE 86427779332 No Longer Active Blaine HERNANDEZ Active CHERATUSSIN AC 100-10 MG/5ML ORAL SYRUP 1 tsp by mouth every 4 hours as needed for cough GUAIFENESIN-CODEINE 80489243800 No Longe r Active Blaine HERNANDEZ Active ZITHROMAX Z-REYNA 250 MG ORAL TABLET 2 today, then 1 daily for 4 d ays AZITHROMYCIN 54070515692 No Longer Active Columba Raida Act nael ZITHROMAX 250 MG ORAL TABLET 2 po today, then 1 po q days 2-5 20 14/03/21 AZITHROMYCIN 96352647590 No Longer Active Carlton Hu MD Active ZITHROMAX Z-REYNA 250 MG ORAL TABLET 2 today, then 1 daily for 4 d ays AZITHROMYCIN 02516318065 No Longer Active Columba Raida Act nael AUGMENTIN 875-125 MG ORAL TABLET 1 po BID x 10 days 13/01/20 AMOXICILLIN-POT CLAVULANATE 50121052132 No Longer Active Diya De Guzman APRN Active ZITHROMAX 250 MG ORAL TABLET 2 po today, then 1 po q days 2-5 20 12/08/14 AZITHROMYCIN 81275024014 No Longer Active Carlton Hu MD Active TRAMADOL HCL 50 MG ORAL TABLET 1 po tid with ES Tylenol TRAMADOL HCL 59940540187 Active ALFREDO Holly Active PREMARIN 0.625 MG ORAL TABLET TAKE 1 TAB BY MOUTH DAILY ESTROGENS CONJUGATED 39771816734 No Longer Active Ridge Bess DO A ctive CYMBALTA 30 MG ORAL CAPSULE DELAYED RELEASE PARTICLES 1 cap by mouth daily DULOXETINE HCL 94907582032 No Longer Active Ridge tam DO Active AMOXICILLIN 500 MG ORAL CAPSULE 1 tab by mouth 3 times daily x 10 days AMOXICILLIN 45686583494 No Longer Active Carlton bustamante MD Active AMOXICILLIN 500 MG ORAL CAPSULE 1 tab by mouth 3 times daily x 10 days AMOXICILLIN 43603747185 No Longer Active Carlton bustamante MD Active PROMETHAZINE-CODEINE 6.25-10 MG/5ML ORAL SYRUP 1 tsp b y mouth every 8 hours prn cough PROMETHAZINE-CODEINE 92940801006 No Longer Acti ve Carlton Hu MD Active MEDROL 4 MG ORAL TABLET THERAPY PACK 6 pills x 1 day, then 5 pills x 1 day then 4 pills x 1 day, then 3 pills x 1 day, then 2 pills x 1 day, then 1 pill x 1 day, then stop METHYLPREDNISOLONE 36877506337 No Long er Active Perez Mora MD Active AZITHROMYCIN 250 MG ORAL TABLET 2 po qd x 1 day, then 1 po q d x 4 days AZITHROMYCIN 17915350712 No Longer Active Perez Ambriz MD Active SYMBICORT 160-4.5 MCG/ACT INHALATION AEROSOL 2 puffs bid wit h rinse after BUDESONIDE-FORMOTEROL FUMARATE 63190791355 N o Longer Active Perez Mora MD Active LYRICA 75 MG ORAL CAPSULE TAKE 1 CAPSULE BY MOUTH TWICE DAILY PREGABALIN 07299282429 No Longer Active Carlton Hu MD Acti ve TOPAMAX 25 MG ORAL TABLET 1 qHS x 1 week, then 1 BID x 1 week, then 1 qAM and 2 qHS x 1 week, then 2 BID (migraine prevention) T OPIRAMATE 42239423396 No Longer Active Jerica FUENTES Active TOPAMAX 50 MG ORAL TABLET take 1 tab po BID for migraines. 07/02 TOPIRAMATE 83913759101 No Longer Active Jerica FUENTES Active TOPAMAX 100 MG ORAL TABLET Take 1 tablet po bid TO PIRAMATE 46168530515 Active ALFREDO Holly Active TRIAMCINOLONE ACETONIDE 0.1 % EXTERNAL CREAM apply three roger es daily prn rash TRIAMCINOLONE ACETONIDE 31236494269 No Longer Active Carlton Hu MD Active PAXIL 40 MG ORAL TABLET take 1 tab po qday for depression 0 PAROXETINE HCL 17302633105 Active ALFREDO Holly Active CHERATUSSIN AC 100-10 MG/5ML ORAL SYRUP 5ml po q6hr PRN Cough 20 13/04/14 GUAIFENESIN-CODEINE 47525534410 No Longer Active Carlton Hu MD Active MEDROL 4 MG ORAL TABLET THERAPY PACK 6 tabs on day 1, 5 tabs on day 2, 4 tabs on day 3, 3 tabs on day 4, 2 tabs on day 5, 1 tab on day 6 2013 METHYLPREDNISOLONE 35450170523 No Longer Active Perez oMra MD Active AZITHROMYCIN 250 MG ORAL TABLET 2 po qd x 1 day, then 1 po q d x 4 days AZITHROMYCIN 48020667655 No Longer Active Perez Ambriz MD Active PROPRANOLOL HCL 60 MG ORAL TABLET 1 PO Q D PROPRANOLOL HCL 02305332611 No Longer Active Perez Mora MD Activ e CHERATUSSIN AC 100-10 MG/5ML ORAL SYRUP take one tsp po Q 6h ours prn cough GUAIFENESIN-CODEINE 62999846113 No Longer Active Zia Mora MD Active AUGMENTIN 875-125 MG ORAL TABLET 1 tab by mouth twice daily with food AMOXICILLIN-POT CLAVULANATE 21837969078 No Longer Act nael Mora MD Active CHERATUSSIN AC 100-10 MG/5ML ORAL SYRUP 1 tsp by mouth every 4 hours as needed for cough GUAIFENESIN-CODEINE 29147123190 No Longe r Active Hugo Restrepo MD Active ACETAMINOPHEN-CODEINE #3 300-30 MG ORAL TABLET 1 PO Q 4-6 HRS RI N PAIN ACETAMINOPHEN-CODEINE 58302802129 No Longer Active Hugo Restrepo MD Active LEVAQUIN 500 MG ORAL TABLET take one po QD LEVO FLOXACIN 32042491165 No Longer Active Griffin HERNANDEZ Active PREDNISONE 20 MG ORAL TABLET Take 3 tabs daily for 3 d ays, 2 tabs daily for 3 days, 1 tab daily for 3 days, 1/2 tab daily for 3 days 11/07 PREDNISONE 93866027414 No Longer Active Carlton Hu MD Acti ve AVELOX 400 MG ORAL TABLET 1 tab by mouth daily MOXIFLOXACIN HCL 34409013821 No Longer Active Carlton Hu MD Active CHERATUSSIN AC 100-10 MG/5ML ORAL SYRUP 1 tsp by mouth every 4 hours as needed for cough GUAIFENESIN-CODEINE 18144883744 No Longe r Active Hugo Restrepo MD Active AVELOX 400 MG ORAL TABLET 1 tab by mouth daily MOXIFLOXACIN HCL 19048891300 No Longer Active Marcy De La Rosa MD PhD Active TERBINAFINE HCL 250 MG ORAL TABLET 1 qDay T ERBINAFINE HCL 61992136853 No Longer Active Marcy De La Rosa MD PhD Active CHERATUSSIN AC 100-10 MG/5ML ORAL SYRUP 1 tsp by mouth every 4 hours as needed for cough GUAIFENESIN-CODEINE 89132834894 No Longe r Active Marcy De La Rosa MD PhD Active AVELOX 400 MG ORAL TABLET 1 tab by mouth daily MOXIFLOXACIN HCL 75267276270 No Longer Active Marcy C Madril MD PhD Active HYDROCODONE-ACETAMINOPHEN 5-325 MG ORAL TABLET 1 po q 6hr PRN co ugh HYDROCODONE-ACETAMINOPHEN 79827141683 No Longer Active Marcy De La Rosa MD PhD Active PREDNISONE 20 MG ORAL TABLET 2 tabs daily for 3 days, 1 tab daily for 3 days, 1/2 tab daily for 2 days PREDNISONE 80180213638 No Longer Active Carlton Hu MD Active CEFDINIR 300 MG ORAL CAPSULE by mouth twice a day 2011 CEFDINIR 41593438987 No Longer Active Carlton Hu MD Acti ve HYDROCHLOROTHIAZIDE 25 MG ORAL TABLET 1 TAB PO DAILY HYDROCHLOROTHIAZIDE 91216649924 Active Adrienne Galvez SORORITY SUPERVISOR Active ACETAMINOPHEN-CODEINE #3 300-30 MG ORAL TABLET 1 tablet po q 4-6 hrs prn pain ACETAMINOPHEN-CODEINE 51773221164 No Longer Active Ridge Bess DO Active ZITHROMAX 250 MG ORAL TABLET 2 po today, then 1 po q days 2-5 20 03/07/07 AZITHROMYCIN 41710137986 No Longer Active Carlton Hu MD Active CHERATUSSIN AC 100-10 MG/5ML ORAL SYRUP take 1 tsp po q4-6 h ours prn cough GUAIFENESIN-CODEINE 92511942788 No Longer Active Jayden Hu MD Active ACETAMINOPHEN-CODEINE #3 300-30 MG ORAL TABLET 1 PO Q 4-6 HR PRN PAIN ACETAMINOPHEN-CODEINE 42333198740 No Longer Active Da vid Lyndsay Hu MD Active LORTAB 7.5-500 MG/15ML ORAL ELIXIR 7.5 ml po q 4 hour prn cough HYDROCODONE-ACETAMINOPHEN 15155150905 No Longer Active Carlton Hu MD Active PREDNISONE 20 MG ORAL TABLET 1 po bid 3 days, then 1 po q day 3 days PREDNISONE 80221783649 No Longer Active Carlton Hu MD Active CEFDINIR 300 MG ORAL CAPSULE by mouth twice a day 2011 CEFDINIR 15901138670 No Longer Active Carlton Hu MD Acti ve CEFDINIR 300 MG ORAL CAPSULE by mouth twice a day 2010 CEFDINIR 18252008580 No Longer Active Carlton Hu MD Acti ve CEFDINIR 300 MG ORAL CAPSULE by mouth twice a day 2010 CEFDINIR 27653653180 No Longer Active Carlton Hu MD Acti ve TESSALON PERLES 100 MG ORAL CAPSULE 1 tablet by mouth 3 times daily as needed for cough BENZONATATE 74303206226 No Longer Active Carlton Hu MD Active CEFDINIR 300 MG ORAL CAPSULE by mouth twice a day 2010 CEFDINIR 87625780617 No Longer Active Carlton Hu MD Acti ve ZITHROMAX Z-REYNA 250 MG ORAL TABLET 2 today, then 1 daily for 4 d ays AZITHROMYCIN 97064311612 No Longer Active Hugo Restrepo MD Active TESSALON PERLES 100 MG ORAL CAPSULE 1 tablet by mouth 3 times daily as needed for cough TESSALON PERLES 100 MG ORAL CAPSULE 81701 7 BENZONATATE Inactive PREDNISONE 20 MG ORAL TABLET 1 po bid 3 days, then 1 po q day 3 days PREDNISONE 20 MG ORAL TABLET 108139 PREDNISONE Greer ctive LORTAB 7.5-500 MG/15ML ORAL [...] cough CHERATUSSIN AC 100-10 MG/5ML ORAL SYRUP 333994 GUAIFENESIN-CODEINE Inactive ACETAMINOPHEN-CODEINE #3 300-30 MG ORAL TABLET 1 tablet po q 4-6 hrs prn pain ACETAMINOPHEN-CODEINE #3 300-30 MG ORAL TABLET ACETAMINOPHEN-CODEINE Inactive HYDROCODONE-ACETAMINOPHEN 5-325 MG ORAL TABLET 1 po q 6hr PRN co ugh HYDROCODONE-ACETAMINOPHEN 5-325 MG ORAL TABLET 825826 HYDROCODONE-ACETAMINOPHEN Inactive AVELOX 400 MG ORAL TABLET 1 tab by mouth daily AVELOX 400 MG ORAL TABLET 578984 MOXIFLOXACIN HCL Inactive CHERATUSSIN AC 100-10 MG/5ML ORAL SYRUP 1 tsp by mouth every 4 hours as needed for cough CHERATUSSIN AC 100-10 MG/5ML ORAL SYRUP 9 17607 GUAIFENESIN-CODEINE Inactive TERBINAFINE HCL 250 MG ORAL TABLET 1 qDay 07/08 TERBINAFINE HCL 250 MG ORAL TABLET 098851 TERBINAFINE HCL Inactive CHERATUSSIN AC 100-10 MG/5ML ORAL SYRUP 1 tsp by mouth every 4 hours as needed for cough CHERATUSSIN AC 100-10 MG/5ML ORAL SYRUP 9 06454 GUAIFENESIN-CODEINE Inactive ACETAMINOPHEN-CODEINE #3 300-30 MG ORAL TABLET 1 PO Q 4-6 HRS RI N PAIN ACETAMINOPHEN-CODEINE #3 300-30 MG ORAL TABLET ACETAMINOPHEN-CODEINE Inactive CHERATUSSIN AC 100-10 MG/5ML ORAL SYRUP 1 tsp by mouth every 4 hours as needed for cough CHERATUSSIN AC 100-10 MG/5ML ORAL SYRUP 9 08716 GUAIFENESIN-CODEINE Inactive AUGMENTIN 875-125 MG ORAL TABLET 1 tab by mouth twice daily with food AUGMENTIN 875-125 MG ORAL TABLET 303851 AMOXICIL MADELINE-POT CLAVULANATE Inactive CHERATUSSIN AC 100-10 MG/5ML ORAL SYRUP take one tsp po Q 6h ours prn cough CHERATUSSIN AC 100-10 MG/5ML ORAL SYRUP 112487 GUAIFENESIN-CODEINE Inactive PROPRANOLOL HCL 60 MG ORAL TABLET 1 PO Q D PROPRANOLOL HCL 60 MG ORAL TABLET 488743 PROPRANOLOL HCL Inactive TOPAMAX 50 MG ORAL TABLET take 1 tab po BID for migraines. 07/02 TOPAMAX 50 MG ORAL TABLET 397369 TOPIRAMATE Inacti ve TOPAMAX 25 MG ORAL TABLET 1 qHS x 1 week, then 1 BID x 1 week, then 1 qAM and 2 qHS x 1 week, then 2 BID (migraine prevention) TOPAMAX 25 MG ORAL TABLET 729490 TOPIRAMATE Inactive LYRICA 75 MG ORAL CAPSULE TAKE 1 CAPSULE BY MOUTH TWICE DAILY LYRICA 75 MG ORAL CAPSULE PREGABALIN Inactive SYMBICORT 160-4.5 MCG/ACT INHALATION AEROSOL 2 puffs bid wit h rinse after SYMBICORT 160-4.5 MCG/ACT INHALATION AEROSOL BUDESONIDE- FORMOTEROL FUMARATE Inactive PROMETHAZINE-CODEINE 6.25-10 MG/5ML ORAL SYRUP 1 tsp b y mouth every 8 hours prn cough PROMETHAZINE-CODEINE 6.25-10 MG/ 5ML ORAL SYRUP 384109 PROMETHAZINE-CODEINE Inactive CYMBALTA 30 MG ORAL CAPSULE DELAYED RELEASE PARTICLES 1 cap by mouth daily CYMBALTA 30 MG ORAL CAPSULE DELAYED RELE ASE PARTICLES 865987 DULOXETINE HCL Inactive PREMARIN 0.625 MG ORAL TABLET TAKE 1 TAB BY MOUTH DAILY PREMARIN 0.625 MG ORAL TABLET ESTROGENS CONJUGATED Inactive CHERATUSSIN AC 100-10 MG/5ML ORAL SYRUP 1 tsp by mouth every 4 hours as needed for cough CHERATUSSIN AC 100-10 MG/5ML ORAL SYRUP 9 22883 GUAIFENESIN-CODEINE Inactive PROMETHAZINE-CODEINE 6.25-10 MG/5ML ORAL SYRUP 1 tsp b y mouth every 6 hours if needed for cough PROMETHAZINE-CODEINE 6.25-10 MG/5ML ORAL SYRUP 595867 PROMETHAZINE-CODEINE Inactive CHERATUSSIN AC 100-10 MG/5ML ORAL SYRUP 1 tsp by mouth every 4 hours as needed for cough CHERATUSSIN AC 100-10 MG/5ML ORAL SYRUP 9 31682 GUAIFENESIN-CODEINE Inactive FLUTICASONE PROPIONATE 50 MCG/ACT NASAL SUSPENSION 1 t o 2 sprays each nostril daily FLUTICASONE PROPIONATE 50 MCG/AC T NASAL SUSPENSION 9003381 FLUTICASONE PROPIONATE Inactive PREDNISONE 20 MG ORAL TABLET 3 tab PO qd x 2d, 2 tab P O qd x 2d, 1 tab PO qd x 2d, 1/2 tab PO qd x 2d PREDNISONE 20 MG ORAL TAB LET 738684 PREDNISONE Inactive LEVOFLOXACIN 500 MG ORAL TABLET 1 tab PO daily x 10 days LEVOFLOXACIN 500 MG ORAL TABLET 221873 LEVOFLOXACIN Inactive CYCLOBENZAPRINE HCL 10 MG ORAL TABLET 1 tablet by mouth BID prn had pain CYCLOBENZAPRINE HCL 10 MG ORAL TABLET 053095 CYCLOBENZAPRINE HCL Inactive ZOCOR 40 MG ORAL TABLET 1 tab by mouth daily 4 ZOCOR 40 MG ORAL TABLET 923251 SIMVASTATIN Inactive TUSSIONEX PENNKINETIC ER 10-8 MG/5ML [...] FLUTICASONE PROPIO EFE 50 MCG/ACT NASAL SUSPENSION 7358810 FLUTICASONE PROPIONATE Inactive TUSSIONEX PENNKINETIC ER 10-8 [...] three days PREDNISONE 20 MG ORAL TABLET 445092 PREDNIS ONE Inactive PROAIR HFA 108 (90 BASE) MCG/ACT INHALATION AEROSOL SO LUTION 2 puffs four times a day as needed PROAIR HFA 108 (90 B ASE) MCG/ACT INHALATION AEROSOL SOLUTION ALBUTEROL SULFATE Inactive ZITHROMAX Z-REYNA 250 MG ORAL TABLET 2 today, then 1 daily for 4 d ays ZITHROMAX Z-REYNA 250 MG ORAL TABLET 040925 AZITHROMYCIN Inactive CEFDINIR 300 MG ORAL CAPSULE by mouth twice a day 2010 CEFDINIR 300 MG ORAL CAPSULE 823256 CEFDINIR Inactive CEFDINIR 300 MG ORAL CAPSULE by mouth twice a day 2010 CEFDINIR 300 MG ORAL CAPSULE 623670 CEFDINIR Inactive CEFDINIR 300 MG ORAL CAPSULE by mouth twice a day 2010 CEFDINIR 300 MG ORAL CAPSULE 526687 CEFDINIR Inactive CEFDINIR 300 MG ORAL CAPSULE by mouth twice a day 2011 CEFDINIR 300 MG ORAL CAPSULE 813742 CEFDINIR Inactive ZITHROMAX 250 MG ORAL TABLET 2 po today, then 1 po q days 2-5 20 03/07/07 ZITHROMAX 250 MG ORAL TABLET 117085 AZITHROMYCIN Blanding ctive CEFDINIR 300 MG ORAL CAPSULE by mouth twice a day 2011 CEFDINIR 300 MG ORAL CAPSULE 398565 CEFDINIR Inactive PREDNISONE 20 MG ORAL TABLET 2 tabs daily for 3 days, 1 tab daily for 3 days, 1/2 tab daily for 2 days PREDNISONE 20 MG ORAL T ABLET 653851 PREDNISONE Inactive AVELOX 400 MG ORAL TABLET 1 tab by mouth daily AVELOX 400 MG ORAL TABLET 188822 MOXIFLOXACIN HCL Inactive AVELOX 400 MG ORAL TABLET 1 tab by mouth daily AVELOX 400 MG ORAL TABLET 475670 MOXIFLOXACIN HCL Inactive PREDNISONE 20 MG ORAL TABLET Take 3 tabs daily for 3 d ays, 2 tabs daily for 3 days, 1 tab daily for 3 days, 1/2 tab daily for 3 days 11/07 PREDNISONE 20 MG ORAL TABLET 670564 PREDNISONE Inactive LEVAQUIN 500 MG ORAL TABLET take one po QD LEVAQUIN 500 MG ORAL TABLET 434496 LEVOFLOXACIN Inactive AZITHROMYCIN 250 MG ORAL TABLET 2 po qd x 1 day, then 1 po q d x 4 days AZITHROMYCIN 250 MG ORAL TABLET 439181 AZITHROMY GIOVANNI Inactive MEDROL 4 MG ORAL TABLET THERAPY PACK 6 tabs on day 1, 5 tabs on day 2, 4 tabs on day 3, 3 tabs on day 4, 2 tabs on day 5, 1 tab on day 6 2013 MEDROL 4 MG ORAL TABLET THERAPY PACK 288352 METHYLPREDNISOLONE Blanding ctive CHERATUSSIN AC 100-10 MG/5ML ORAL SYRUP 5ml po q6hr PRN Cough 20 13/04/14 CHERATUSSIN AC 100-10 MG/5ML ORAL SYRUP 095937 GUAIFENE SIN-CODEINE Inactive TRIAMCINOLONE ACETONIDE 0.1 % EXTERNAL CREAM apply three roger es daily prn rash TRIAMCINOLONE ACETONIDE 0.1 % EXTERNAL CREAM 101 4314 TRIAMCINOLONE ACETONIDE Inactive AZITHROMYCIN 250 MG ORAL TABLET 2 po qd x 1 day, then 1 po q d x 4 days AZITHROMYCIN 250 MG ORAL TABLET 358658 AZITHROMY GIOVANNI Inactive MEDROL 4 MG ORAL TABLET THERAPY PACK 6 pills x 1 day, then 5 pills x 1 day then 4 pills x 1 day, then 3 pills x 1 day, then 2 pills x 1 day, then 1 pill x 1 day, then stop MEDROL 4 MG ORAL TABLET THERAPY PACK 963219 METHYLPREDNISOLONE Inactive AMOXICILLIN 500 MG ORAL CAPSULE 1 tab by mouth 3 times daily x 10 days AMOXICILLIN 500 MG ORAL CAPSULE 165922 AMOXICILL IN Inactive AMOXICILLIN 500 MG ORAL CAPSULE 1 tab by mouth 3 times daily x 10 days AMOXICILLIN 500 MG ORAL CAPSULE 501683 AMOXICILL IN Inactive ZITHROMAX 250 MG ORAL TABLET 2 po today, then 1 po q days 2-5 20 12/08/14 ZITHROMAX 250 MG ORAL TABLET 549371 AZITHROMYCIN Blanding ctive AUGMENTIN 875-125 MG ORAL TABLET 1 po BID x 10 days 20 13/01/20 AUGMENTIN 875-125 MG ORAL TABLET 182380 AMOXICILLIN-POT CLAVULANATE Inactive ZITHROMAX Z-REYNA 250 MG ORAL TABLET 2 today, then 1 daily for 4 d ays ZITHROMAX Z-REYNA 250 MG ORAL TABLET 578487 AZITHROMYCIN Inactive ZITHROMAX 250 MG ORAL TABLET 2 po today, then 1 po q days 2-5 20 14/03/21 ZITHROMAX 250 MG ORAL TABLET 564391 AZITHROMYCIN Blanding ctive ZITHROMAX Z-REYNA 250 MG ORAL TABLET 2 today, then 1 daily for 4 d ays ZITHROMAX Z-REYNA 250 MG ORAL TABLET 685894 AZITHROMYCIN Inactive CEFDINIR 300 MG ORAL CAPSULE 1 po BID x 10 days 06/21 CEFDINIR 300 MG ORAL CAPSULE 196345 CEFDINIR Inactive ZITHROMAX 250 MG ORAL TABLET 2 po today, then 1 po q days 2-5 20 13/08/10 ZITHROMAX 250 MG ORAL TABLET 385925 AZITHROMYCIN Greer ctive LEVAQUIN 500 MG ORAL TABLET 1 tablet by mouth daily 20 13/09/24 LEVAQUIN 500 MG ORAL TABLET 687350 LEVOFLOXACIN Inactive SINGULAIR 10 MG ORAL TABLET 1 po qday for allergies 20 14/01/12 SINGULAIR 10 MG ORAL TABLET [id number] MONTELUKAST SODIUM Inactive AMOXICILLIN 500 MG ORAL CAPSULE 2 po BID x 10 days 201 09/29/08 AMOXICILLIN 500 MG ORAL CAPSULE 637064 AMOXICILLIN Inactive PREDNISONE 20 MG ORAL TABLET 2 tabs daily for 3 days, 1 tab daily for 3 days, 1/2 tab daily for 2 days PREDNISONE 20 MG ORAL T ABLET 262277 PREDNISONE Inactive ZITHROMAX Z-REYNA 250 MG ORAL TABLET 2 today, then 1 daily for 4 d ays ZITHROMAX Z-REYNA 250 MG ORAL TABLET 380155 AZITHROMYCIN Inactive PREDNISONE 20 MG ORAL TABLET 2 tabs daily for 3 days, 1 tab daily for 3 days, 1/2 tab daily for 2 days PREDNISONE 20 MG ORAL T ABLET 890028 PREDNISONE Inactive ZITHROMAX 250 MG ORAL TABLET 2 po today, then 1 po q days 2-5 20 14/09/04 ZITHROMAX 250 MG ORAL TABLET 954050 AZITHROMYCIN Greer ctive AMOXICILLIN 500 MG ORAL CAPSULE 1 cap by mouth three times a day AMOXICILLIN 500 MG ORAL CAPSULE 150805 AMOXICILLIN Inactive TERBINAFINE HCL 250 MG ORAL TABLET 1 qDay for nail fungus 7 TERBINAFINE HCL 250 MG ORAL TABLET 075729 TERBINAFINE HCL Inact nael AUGMENTIN 875-125 MG ORAL TABLET 1 po BID x 10 days 16/03/22 AUGMENTIN 875-125 MG ORAL TABLET 257501 AMOXICILLIN-POT CLAVULANATE Inactive PREDNISONE 20 MG ORAL TABLET 2 po qd x 5 days PREDNISONE 20 MG ORAL TABLET 169594 PREDNISONE Inactive AZITHROMYCIN 250 MG ORAL TABLET 2 po qd x 1 day, then 1 po q d x 4 days AZITHROMYCIN 250 MG ORAL TABLET 270199 AZITHROMY GIOVANNI Inactive Vital Signs Date Name [...] - Chem istry sodium, serum 139 mmol/L 935-623 6988/03/19 potassium, serum 3.6 mmol/L 3.5-5.2 chloride, serum 100 mmol/L 98-107 carbon dioxide, venous blood 30.3 mmol/L 21.0-32 .0 blood glucose 101 mg/dL 65-110 calcium, serum 9.4 mg/dL 8.5-10.1 urea nitrogen, blood 10 mg/dL 7-18 creatinine, serum 0.96 mg/dL 0.60-1.30 sodium, serum 139 mmol/L 788-796 4612/10/12 potassium, serum 3.8 mmol/L 3.5-5.2 chloride, serum 102 mmol/L 98-107 carbon dioxide, venous blood 29.4 mmol/L 21.0-32 .0 blood glucose 103 mg/dL 65-95 calcium, serum 8.8 mg/dL 8.5-10.1 urea nitrogen, blood 10 mg/dL 7-18 creatinine, serum 0.97 mg/dL 0.60-1.30 Estimated Glomerular Filtration Rate (calc) 62 (?) mL/min/1.73m2 = OR > 60 mL/min Encounters Code Encounter Date Provider Facility [id number] Vst-Est Level III 11:12:16 CDT Yanet Bess DO [facility] CPT-19658 Level 3 Est. Patient 11:34:49 SENIOR LABORATORY TECHNICIAN Perez Mora MD [facility] CPT-45673 Level 4 Est. Patient 09:51:32 SENIOR LABORATORY TECHNICIAN Carlton rich MD [facility] CPT-18845 Level 3 Est. Patient 10:26:00 SENIOR LABORATORY TECHNICIAN Elise stephenson APRN [facility] CPT-21621 Level 3 Est. Patient 13:35:41 SENIOR LABORATORY TECHNICIAN Carlton rich MD [facility] CPT-06205 Level 3 Est. Patient 10:03:52 SENIOR LABORATORY TECHNICIAN Carlton irch MD [facility] CPT-27475 Level 3 Est. Patient 12:17:50 CDT Hugo Restrepo MD [facility] CPT-20258 Level 3 Est. Patient 13:42:38 CDT Elise Are [facility] CPT-72228 Level 3 Est. Patient 13:23:51 CDT Diya cobian [facility] CPT-61117 Level 3 Est. Patient 14:22:19 SENIOR LABORATORY TECHNICIAN Astridgreer Mariana cobian [facility] CPT-06495 Level 3 Est. Patient 10:11:46 CDT Carlton rich MD [facility] CPT-30368 Level 3 Est. Patient 17:29:43 CDT Elise Are ll [facility] CPT-07021 Level 3 Est. Patient 11:58:06 CDT Elise Are [facility] CPT-01823 Level 4 Est. Patient 14:36:51 CDT Carlton rich MD [facility] CPT-34640 Level 3 Est. Patient 18:16:00 SENIOR LABORATORY TECHNICIAN Blaine HERNANDEZ [facility] CPT-79336 Level 3 Est. Patient 09:45:49 SENIOR LABORATORY TECHNICIAN Carlton rich MD [facility] CPT-54325 Level 3 Est. Patient 13:19:20 CDT Carlton rich MD [facility] CPT-73507 Level 3 Est. Patient 13:06:43 CDT Ridge tam DO [facility] CPT-51572 Level 3 Est. Patient 10:03:07 CDT Perez Mora MD [facility] CPT-72075 Level 3 Est. Patient 19:50:35 SENIOR LABORATORY TECHNICIAN Carlton rich MD [facility] CPT-77931 Level 4 Est. Patient 18:05:01 SENIOR LABORATORY TECHNICIAN Carlton rich MD [facility] CPT-50155 Level 3 Est. Patient 10:45:55 SENIOR LABORATORY TECHNICIAN Hugo Restrepo MD [facility] CPT-71602 Level 3 Est. Patient 14:12:49 CDT Griffin HERNANDEZ [facility] CPT-83369 Level 3 Est. Patient 17:37:24 CDT Carlton rich MD [facility] CPT-16702 Level 3 Est. Patient 16:51:54 CDT Carlton rich MD [facility] CPT-68975 Level 3 Est. Patient 12:18:11 CDT Hugo Restrepo MD [facility] CPT-37369 Level 3 Est. Patient 11:30:25 CDT Marcy crisostomo MD PhD [facility] CPT-56610 Level 3 Est. Patient 12:00:47 SENIOR LABORATORY TECHNICIAN Carlton rich MD [facility] CPT-97508 Level 3 Est. Patient 16:31:06 SENIOR LABORATORY TECHNICIAN Carlton rich MD [facility] CPT-89028 Level 3 Est. Patient 16:23:24 SENIOR LABORATORY TECHNICIAN Ridge tam DO [facility] CPT-81430 Level 3 Est. Patient 12:34:12 CDT Carlton rich MD [facility] CPT-86395 Level 2 Est. Patient 15:43:33 CDT Robi armstrong MD [facility] CPT-81445 Level 4 Est. Patient 14:04:44 CDT Carlton rich MD [facility] CPT-60948 Level 3 Est. Patient 05:47:59 CDT Ridge tam [facility] CPT-36289 Level 3 Est. Patient 13:12:53 SENIOR LABORATORY TECHNICIAN Carlton rich MD [facility] CPT-27999 Level 3 Est. Patient 14:26:53 CDT Hugo Restrepo MD [facility] Procedures Code Procedure Name [...] CPT-J1100 Decadron 6mg (Dexamethasone) 14:32:13 CDT 2 CPT-92235 Hip bilat min 2V w AP pelvis 13:16:20 CDT 2 CPT-52225 Pelvis only 13:07:33 CDT CPT-90747 Spec Collection and Handling Fee 11:25:12 C DT CPT-62642 Fluzone Quadrivalent Intramuscular Suspe nsion 0.5 ML 14:31:55 CDT CPT-81184 Abx/Therapy Injection 13:28:47 SENIOR LABORATORY TECHNICIAN CPT-J2930 Solu Medrol 125 mg (Methyl Prednisolone Sodium Succinate) 12:00:47 SENIOR LABORATORY TECHNICIAN CPT-78667 Venipuncture Draw Fee 11:33:31 CDT CPT-03586 EKG Trac and Interp 11:21:09 CDT CPT-42624 Chest 2V Frontal and Lat 11:21:09 CDT 12/15 CPT-96621 Venipuncture Draw Fee 08:02:34 CDT CPT-43624 Chest 2V Frontal and Lat 05:47:59 CDT 06/05
--- OUTSIDE RECORDS SUMMARY | 2019-10-08 09:27 | XMS REPORT | Clinical Summary ---
Author Author Caitlin, Juliana Martinez Organization [facility] Address Unknown Phone Unavailable Allergies, [...] URI 465.9 Inactive Ridge Bess DO Ac [place] upper respiratory infections of unspecified site Body [...] po q d x 4 days AZITHROMYCIN [id number] No Longer Active Ridge Bess DO Active PREDNISONE 20 MG ORAL TABLET two tabs by mouth today, then one tab by mouth days two and three and four PREDNISONE 49136354715 Active Lyndsay Mora MD Active PREDNISONE 20 MG ORAL TABLET 2 po qd x 5 days P REDNISONE 41574613898 No Longer Active Perez Mora MD Active PROAIR HFA 108 (90 BASE) MCG/ACT INHALATION AEROSOL SO LUTION 2 puffs four times a day as needed ALBUTEROL SULFATE 66969595037 No Long er Active Becky FUENTES Active ASPIRIN 81 MG ORAL TABLET 1 po qd ASPIRIN 97079416333 Active Carlton Hu MD Active PREDNISONE 20 MG ORAL TABLET 1 tab twice daily for 3 d ay, then one daily for three days PREDNISONE 85611465117 No Longer Active Carlton Hu MD Active AUGMENTIN 875-125 MG ORAL TABLET 1 po BID x 10 days 20 16/03/22 AMOXICILLIN-POT CLAVULANATE 50152178477 No Longer Active Elise Garcia APRN Active TERBINAFINE HCL 250 MG ORAL TABLET 1 qDay for nail fungus 7 TERBINAFINE HCL 49623233991 No Longer Active Carlton Hu MD A ctive TUSSIONEX PENNKINETIC ER 10-8 MG/5ML ORAL SUSPENSION E XTENDED RELEASE 5ml po q12hr PRN Cough HYDROCOD POLST-CHLORPHEN POLST 21768115138 Active Carlton Hu MD Active AMOXICILLIN 500 MG ORAL CAPSULE 1 cap by mouth three times a day AMOXICILLIN 27424179734 No Longer Active Carlton Hu MD Active ELMIRON 100 MG ORAL CAPSULE 2 tablets in the am and 1 tablet at hs PENTOSAN POLYSULFATE SODIUM 37130252347 No Longer Active Robert jade Hu MD Active MUCINEX D 60-600 MG ORAL TABLET EXTENDED RELEASE 12 HOUR 1 t ab po q am PSEUDOEPHEDRINE-GUAIFENESIN 08695032050 No Longer Act nael Carlton Hu MD Active MUCINEX DM MAXIMUM STRENGTH 60-1200 MG ORAL TABLET EXT ENDED RELEASE 12 HOUR 1 tab po q am DEXTROMETHORPHAN-GUAIFENESIN 62768031206 No Longer Active Carlton Hu MD Active TUSSIONEX PENNKINETIC ER 10-8 MG/5ML ORAL SUSPENSION E XTENDED RELEASE 5ml po q12hr PRN Cough HYDROCOD POLST-CHLORPHEN POLST 5 4691386034 No Longer Active Carlton Hu MD Active POTASSIUM CHLORIDE ER 20 MEQ ORAL TABLET EXTENDED RELE ASE Take 1 by mouth 4 times daily for 7 days POTASSIUM CHLORIDE 16806985241 No Longer Active Carlton Hu MD Active ZITHROMAX 250 MG ORAL TABLET 2 po today, then 1 po q days 2-5 14/09/04 AZITHROMYCIN 83266533234 No Longer Active Elise Garcia APRN Active TUSSIONEX PENNKINETIC ER 10-8 MG/5ML ORAL SUSPENSION E XTENDED RELEASE 5 ml twice a day as needed for cough HYDROCOD POLST-CHLORPH EN POLST 19903150774 No Longer Active Elise Garcia APRN Active MONTELUKAST SODIUM 10 MG ORAL TABLET 1 po daily for Allergy MONTELUKAST SODIUM 00179010241 Active Carlton Hu MD Ac tive TUSSIONEX PENNKINETIC ER 10-8 MG/5ML ORAL SUSPENSION E XTENDED RELEASE 5ml po q12hr PRN Cough HYDROCOD POLST-CHLORPHEN POLST 5 1217843132 No Longer Active Hugo Restrepo MD Active GABAPENTIN 100 MG ORAL CAPSULE 1 po BID for fibromyalgia GABAPENTIN 81512474541 Active Carlton Hu MD Active LYRICA 100 MG ORAL CAPSULE Take 1 tab po BID for fibromyalgia 20 11/08/21 PREGABALIN 92111680013 No Longer Active Elise Garcia DIRECTOR OF GRADUATE ADMISSIONS A ctive PREDNISONE 20 MG ORAL TABLET 2 tabs daily for 3 days, 1 tab daily for 3 days, 1/2 tab daily for 2 days PREDNISONE 79112382917 No Longer Active Jillina Frazell DIRECTOR OF GRADUATE ADMISSIONS Active TUSSIONEX PENNKINETIC ER 10-8 MG/5ML ORAL SUSPENSION E XTENDED RELEASE 5 mL PO q 12 hrs PRN cough HYDROCOD POLST-CHLORPHEN POLST 581446 37492 No Longer Active Jillina Frazell DIRECTOR OF GRADUATE ADMISSIONS Active FLUTICASONE PROPIONATE 50 MCG/ACT NASAL SUSPENSION 2 s prays each nostril daily until bottle is empty FLUTICASONE PROPIONATE 388218078 99 No Longer Active Jillina Frazell DIRECTOR OF GRADUATE ADMISSIONS Active ASMANEX 60 METERED DOSES 220 MCG/INH INHALATION AEROSO L POWDER BREATH ACTIVATED 1 puff bid with rinse after MOMETASONE FUROATE 9770687 4102 No Longer Active Jillina Frazell DIRECTOR OF GRADUATE ADMISSIONS Active ZITHROMAX Z-REYNA 250 MG ORAL TABLET 2 today, then 1 daily for 4 d ays AZITHROMYCIN 65998906800 No Longer Active Elise Garcia DIRECTOR OF GRADUATE ADMISSIONS Active TUSSIONEX PENNKINETIC ER 10-8 MG/5ML ORAL SUSPENSION E XTENDED RELEASE 5ml po q12hr PRN Cough HYDROCOD POLST-CHLORPHEN POLST 5 6212928309 No Longer Active Elise Garcia DIRECTOR OF GRADUATE ADMISSIONS Active PREDNISONE 20 MG ORAL TABLET 2 tabs daily for 3 days, 1 tab daily for 3 days, 1/2 tab daily for 2 days PREDNISONE 33267116368 No Longer Active Jillina Frazell DIRECTOR OF GRADUATE ADMISSIONS Active AMOXICILLIN 500 MG ORAL CAPSULE 2 po BID x 10 days 201 09/29/08 AMOXICILLIN 72160409826 No Longer Active Jillina Frazell DIRECTOR OF GRADUATE ADMISSIONS Act nael SINGULAIR 10 MG ORAL TABLET 1 po qday for allergies 20 14/01/12 MONTELUKAST SODIUM 04257680108 No Longer Active Carlton Hu MD Active LEVAQUIN 500 MG ORAL TABLET 1 tablet by mouth daily 20 13/09/24 LEVOFLOXACIN 54653925438 No Longer Active Carlton Hu MD Acti ve FLUTICASONE PROPIONATE 50 MCG/ACT NASAL SUSPENSION 2 s prays each nostril daily for 2 weeks, then 1 spray each nostril daily. FLUTICASONE PROPIONATE 79319200168 Active Elise Areseema KHAN Active ZITHROMAX 250 MG ORAL TABLET 2 po today, then 1 po q days 2-5 20 13/08/10 AZITHROMYCIN 31550069866 No Longer Active Elise Garcia APRN Active XANAX 0.5 MG ORAL TABLET one tablet by mouth daily prn anxiety 2015 ALPRAZOLAM 08864715790 Active ALFREDO Holly Active CYMBALTA 30 MG ORAL CAPSULE DELAYED RELEASE PARTICLES 1 cap by mouth daily for depression DULOXETINE HCL 76034988873 Active ALFREDO Holly Active CEFDINIR 300 MG ORAL CAPSULE 1 po BID x 10 days CEFDINIR 87959917340 No Longer Active Carlton Hu MD Active ZOCOR 40 MG ORAL TABLET 1 tab by mouth daily SI MVASTATIN 94001147108 No Longer Active Carlton Hu MD Active CYCLOBENZAPRINE HCL 10 MG ORAL TABLET 1 tablet by mouth BID prn had pain CYCLOBENZAPRINE HCL 26636034388 No Longer Active Jayden Hu MD Active LEVOFLOXACIN 500 MG ORAL TABLET 1 tab PO daily x 10 days LEVOFLOXACIN 09598362377 No Longer Active Carlton Hu MD Acti ve PREDNISONE 20 MG ORAL TABLET 3 tab PO qd x 2d, 2 tab P O qd x 2d, 1 tab PO qd x 2d, 1/2 tab PO qd x 2d PREDNISONE 79115257068 No Lo nger Active Carlton Hu MD Active FLUTICASONE PROPIONATE 50 MCG/ACT NASAL SUSPENSION 1 t o 2 sprays each nostril daily FLUTICASONE PROPIONATE 08041610804 No Longer Ac tive Blaine HERNANDEZ Active CHERATUSSIN AC 100-10 MG/5ML ORAL SYRUP 1 tsp by mouth every 4 hours as needed for cough GUAIFENESIN-CODEINE 87749396756 No Longe r Active Blaine HERNANDEZ Active PROMETHAZINE-CODEINE 6.25-10 MG/5ML ORAL SYRUP 1 tsp b y mouth every 6 hours if needed for cough PROMETHAZINE-CODEINE 45910540602 No Longer Active Blaine HERNANDEZ Active CHERATUSSIN AC 100-10 MG/5ML ORAL SYRUP 1 tsp by mouth every 4 hours as needed for cough GUAIFENESIN-CODEINE 48918170804 No Longe r Active Blaine HERNANDEZ Active ZITHROMAX Z-REYNA 250 MG ORAL TABLET 2 today, then 1 daily for 4 d ays AZITHROMYCIN 09971622835 No Longer Active Columba Raida Act nael ZITHROMAX 250 MG ORAL TABLET 2 po today, then 1 po q days 2-5 20 14/03/21 AZITHROMYCIN 26488609985 No Longer Active Carlton Hu MD Active ZITHROMAX Z-REYNA 250 MG ORAL TABLET 2 today, then 1 daily for 4 d ays AZITHROMYCIN 58132260420 No Longer Active Columba Raida Act nael AUGMENTIN 875-125 MG ORAL TABLET 1 po BID x 10 days 13/01/20 AMOXICILLIN-POT CLAVULANATE 71687691178 No Longer Active Diya De Guzman APRN Active ZITHROMAX 250 MG ORAL TABLET 2 po today, then 1 po q days 2-5 20 12/08/14 AZITHROMYCIN 14212921935 No Longer Active Carlton Hu MD Active TRAMADOL HCL 50 MG ORAL TABLET 1 po tid with ES Tylenol TRAMADOL HCL 16232365271 Active ALFREDO Holly Active PREMARIN 0.625 MG ORAL TABLET TAKE 1 TAB BY MOUTH DAILY ESTROGENS CONJUGATED 62283788416 No Longer Active Ridge Bess DO A ctive CYMBALTA 30 MG ORAL CAPSULE DELAYED RELEASE PARTICLES 1 cap by mouth daily DULOXETINE HCL 01054627852 No Longer Active Ridge tam DO Active AMOXICILLIN 500 MG ORAL CAPSULE 1 tab by mouth 3 times daily x 10 days AMOXICILLIN 12975179428 No Longer Active Carlton bustamante MD Active AMOXICILLIN 500 MG ORAL CAPSULE 1 tab by mouth 3 times daily x 10 days AMOXICILLIN 04927540506 No Longer Active Carlton bustamante MD Active PROMETHAZINE-CODEINE 6.25-10 MG/5ML ORAL SYRUP 1 tsp b y mouth every 8 hours prn cough PROMETHAZINE-CODEINE 69664138153 No Longer Acti ve Carlton Hu MD Active MEDROL 4 MG ORAL TABLET THERAPY PACK 6 pills x 1 day, then 5 pills x 1 day then 4 pills x 1 day, then 3 pills x 1 day, then 2 pills x 1 day, then 1 pill x 1 day, then stop METHYLPREDNISOLONE 80769067236 No Long er Active Perez Mora MD Active AZITHROMYCIN 250 MG ORAL TABLET 2 po qd x 1 day, then 1 po q d x 4 days AZITHROMYCIN 44062469494 No Longer Active Perez Ambriz MD Active SYMBICORT 160-4.5 MCG/ACT INHALATION AEROSOL 2 puffs bid wit h rinse after BUDESONIDE-FORMOTEROL FUMARATE 96803366602 N o Longer Active Perez Mora MD Active LYRICA 75 MG ORAL CAPSULE TAKE 1 CAPSULE BY MOUTH TWICE DAILY PREGABALIN 11202049971 No Longer Active Carlton Hu MD Acti ve TOPAMAX 25 MG ORAL TABLET 1 qHS x 1 week, then 1 BID x 1 week, then 1 qAM and 2 qHS x 1 week, then 2 BID (migraine prevention) T OPIRAMATE 57312811248 No Longer Active Jerica FUENTES Active TOPAMAX 50 MG ORAL TABLET take 1 tab po BID for migraines. 07/02 TOPIRAMATE 35788349464 No Longer Active Jerica FUENTES Active TOPAMAX 100 MG ORAL TABLET Take 1 tablet po bid TO PIRAMATE 11934826755 Active ALFREDO Holly Active TRIAMCINOLONE ACETONIDE 0.1 % EXTERNAL CREAM apply three roger es daily prn rash TRIAMCINOLONE ACETONIDE 08963846594 No Longer Active Carlton Hu MD Active PAXIL 40 MG ORAL TABLET take 1 tab po qday for depression 0 PAROXETINE HCL 85096591831 Active ALFREDO Holly Active CHERATUSSIN AC 100-10 MG/5ML ORAL SYRUP 5ml po q6hr PRN Cough 20 13/04/14 GUAIFENESIN-CODEINE 94084838352 No Longer Active Carlton Hu MD Active MEDROL 4 MG ORAL TABLET THERAPY PACK 6 tabs on day 1, 5 tabs on day 2, 4 tabs on day 3, 3 tabs on day 4, 2 tabs on day 5, 1 tab on day 6 2013 METHYLPREDNISOLONE 27996853528 No Longer Active Perez Mora MD Active AZITHROMYCIN 250 MG ORAL TABLET 2 po qd x 1 day, then 1 po q d x 4 days AZITHROMYCIN 51016688304 No Longer Active Perez Ambriz MD Active PROPRANOLOL HCL 60 MG ORAL TABLET 1 PO Q D PROPRANOLOL HCL 52453374379 No Longer Active Perez Mora MD Activ e CHERATUSSIN AC 100-10 MG/5ML ORAL SYRUP take one tsp po Q 6h ours prn cough GUAIFENESIN-CODEINE 72411242185 No Longer Active Zia Mora MD Active AUGMENTIN 875-125 MG ORAL TABLET 1 tab by mouth twice daily with food AMOXICILLIN-POT CLAVULANATE 92045183999 No Longer Act nael Mora MD Active CHERATUSSIN AC 100-10 MG/5ML ORAL SYRUP 1 tsp by mouth every 4 hours as needed for cough GUAIFENESIN-CODEINE 58917538322 No Longe r Active Hugo eRstrepo MD Active ACETAMINOPHEN-CODEINE #3 300-30 MG ORAL TABLET 1 PO Q 4-6 HRS HI N PAIN ACETAMINOPHEN-CODEINE 30387798550 No Longer Active Hugo Restrepo MD Active LEVAQUIN 500 MG ORAL TABLET take one po QD LEVO FLOXACIN 44678179631 No Longer Active Griffin HERNANDEZ Active PREDNISONE 20 MG ORAL TABLET Take 3 tabs daily for 3 d ays, 2 tabs daily for 3 days, 1 tab daily for 3 days, 1/2 tab daily for 3 days 11/07 PREDNISONE 40763239627 No Longer Active Carlton Hu MD Acti ve AVELOX 400 MG ORAL TABLET 1 tab by mouth daily MOXIFLOXACIN HCL 45235131977 No Longer Active Carlton Hu MD Active CHERATUSSIN AC 100-10 MG/5ML ORAL SYRUP 1 tsp by mouth every 4 hours as needed for cough GUAIFENESIN-CODEINE 77148785241 No Longe r Active Hugo Restrepo MD Active AVELOX 400 MG ORAL TABLET 1 tab by mouth daily MOXIFLOXACIN HCL 61502011873 No Longer Active Marcy De La Rosa MD PhD Active TERBINAFINE HCL 250 MG ORAL TABLET 1 qDay T ERBINAFINE HCL 15269227554 No Longer Active Marcy De La Rosa MD PhD Active CHERATUSSIN AC 100-10 MG/5ML ORAL SYRUP 1 tsp by mouth every 4 hours as needed for cough GUAIFENESIN-CODEINE 32938926728 No Longe r Active Marcy De La Rosa MD PhD Active AVELOX 400 MG ORAL TABLET 1 tab by mouth daily MOXIFLOXACIN HCL 97274687054 No Longer Active Marcy De La Rosa MD PhD Active HYDROCODONE-ACETAMINOPHEN 5-325 MG ORAL TABLET 1 po q 6hr PRN co ugh HYDROCODONE-ACETAMINOPHEN 89231659459 No Longer Active Marcy De La Rosa MD PhD Active PREDNISONE 20 MG ORAL TABLET 2 tabs daily for 3 days, 1 tab daily for 3 days, 1/2 tab daily for 2 days PREDNISONE 80365320475 No Longer Active Carlton Hu MD Active CEFDINIR 300 MG ORAL CAPSULE by mouth twice a day 2011 CEFDINIR 92889145642 No Longer Active Carlton Hu MD Acti ve HYDROCHLOROTHIAZIDE 25 MG ORAL TABLET 1 TAB PO DAILY HYDROCHLOROTHIAZIDE 34747754753 Active ALFREDO Holly Ac tive ACETAMINOPHEN-CODEINE #3 300-30 MG ORAL TABLET 1 tablet po q 4-6 hrs prn pain ACETAMINOPHEN-CODEINE 11387514502 No Longer Active Ridge Bess DO Active ZITHROMAX 250 MG ORAL TABLET 2 po today, then 1 po q days 2-5 20 03/07/07 AZITHROMYCIN 96899317926 No Longer Active Carlton Hu MD Active CHERATUSSIN AC 100-10 MG/5ML ORAL SYRUP take 1 tsp po q4-6 h ours prn cough GUAIFENESIN-CODEINE 21575599298 No Longer Active Jayden Hu MD Active ACETAMINOPHEN-CODEINE #3 300-30 MG ORAL TABLET 1 PO Q 4-6 HR PRN PAIN ACETAMINOPHEN-CODEINE 34592142965 No Longer Active Da vilesley Hu MD Active LORTAB 7.5-500 MG/15ML ORAL ELIXIR 7.5 ml po q 4 hour prn cough HYDROCODONE-ACETAMINOPHEN 93239877832 No Longer Active Carlton Hu MD Active PREDNISONE 20 MG ORAL TABLET 1 po bid 3 days, then 1 po q day 3 days PREDNISONE 35303889312 No Longer Active Carlton Hu MD Active CEFDINIR 300 MG ORAL CAPSULE by mouth twice a day 2011 CEFDINIR 00940574596 No Longer Active Carlton Hu MD Acti ve CEFDINIR 300 MG ORAL CAPSULE by mouth twice a day 2010 CEFDINIR 19886123569 No Longer Active Carlton Hu MD Acti ve CEFDINIR 300 MG ORAL CAPSULE by mouth twice a day 2010 CEFDINIR 08047826407 No Longer Active Carlton Hu MD Acti ve TESSALON PERLES 100 MG ORAL CAPSULE 1 tablet by mouth 3 times daily as needed for cough BENZONATATE 84416845568 No Longer Active Carlton Hu MD Active CEFDINIR 300 MG ORAL CAPSULE by mouth twice a day 2010 CEFDINIR 34502187422 No Longer Active Carlton Hu MD Acti ve ZITHROMAX Z-REYNA 250 MG ORAL TABLET 2 today, then 1 daily for 4 d ays AZITHROMYCIN 48112310200 No Longer Active Hugo Restrepo MD Active TESSALON PERLES 100 MG ORAL CAPSULE 1 tablet by mouth 3 times daily as needed for cough TESSALON PERLES 100 MG ORAL CAPSULE 59414 7 BENZONATATE Inactive PREDNISONE 20 MG ORAL TABLET 1 po bid 3 days, then 1 po q day 3 days PREDNISONE 20 MG ORAL TABLET 388195 PREDNISONE [place] ctive LORTAB 7.5-500 MG/15ML ORAL ELIXIR 7.5 [...] cough CHERATUSSIN AC 100-10 MG/5ML ORAL SYRUP 878240 GUAIFENESIN-CODEINE Inactive ACETAMINOPHEN-CODEINE #3 300-30 MG ORAL TABLET 1 tablet po q 4-6 hrs prn pain ACETAMINOPHEN-CODEINE #3 300-30 MG ORAL TABLET ACETAMINOPHEN-CODEINE Inactive HYDROCODONE-ACETAMINOPHEN 5-325 MG ORAL TABLET 1 po q 6hr PRN co ugh HYDROCODONE-ACETAMINOPHEN 5-325 MG ORAL TABLET 566618 HYDROCODONE-ACETAMINOPHEN Inactive AVELOX 400 MG ORAL TABLET 1 tab by mouth daily AVELOX 400 MG ORAL TABLET 158168 MOXIFLOXACIN HCL Inactive CHERATUSSIN AC 100-10 MG/5ML ORAL SYRUP 1 tsp by mouth every 4 hours as needed for cough CHERATUSSIN AC 100-10 MG/5ML ORAL SYRUP 9 23140 GUAIFENESIN-CODEINE Inactive TERBINAFINE HCL 250 MG ORAL TABLET 1 qDay 07/08 TERBINAFINE HCL 250 MG ORAL TABLET 883530 TERBINAFINE HCL Inactive CHERATUSSIN AC 100-10 MG/5ML ORAL SYRUP 1 tsp by mouth every 4 hours as needed for cough CHERATUSSIN AC 100-10 MG/5ML ORAL SYRUP 9 87739 GUAIFENESIN-CODEINE Inactive ACETAMINOPHEN-CODEINE #3 300-30 MG ORAL TABLET 1 PO Q 4-6 HRS HI N PAIN ACETAMINOPHEN-CODEINE #3 300-30 MG ORAL TABLET ACETAMINOPHEN-CODEINE Inactive CHERATUSSIN AC 100-10 MG/5ML ORAL SYRUP 1 tsp by mouth every 4 hours as needed for cough CHERATUSSIN AC 100-10 MG/5ML ORAL SYRUP 9 75101 GUAIFENESIN-CODEINE Inactive AUGMENTIN 875-125 MG ORAL TABLET 1 tab by mouth twice daily with food AUGMENTIN 875-125 MG ORAL TABLET 932220 AMOXICIL MAEDLINE-POT CLAVULANATE Inactive CHERATUSSIN AC 100-10 MG/5ML ORAL SYRUP take one tsp po Q 6h ours prn cough CHERATUSSIN AC 100-10 MG/5ML ORAL SYRUP 534508 GUAIFENESIN-CODEINE Inactive PROPRANOLOL HCL 60 MG ORAL TABLET 1 PO Q D PROPRANOLOL HCL 60 MG ORAL TABLET 059449 PROPRANOLOL HCL Inactive TOPAMAX 50 MG ORAL TABLET take 1 tab po BID for migraines. 07/02 TOPAMAX 50 MG ORAL TABLET 190828 TOPIRAMATE Inacti ve TOPAMAX 25 MG ORAL TABLET 1 qHS x 1 week, then 1 BID x 1 week, then 1 qAM and 2 qHS x 1 week, then 2 BID (migraine prevention) TOPAMAX 25 MG ORAL TABLET 256935 TOPIRAMATE Inactive LYRICA 75 MG ORAL CAPSULE TAKE 1 CAPSULE BY MOUTH TWICE DAILY LYRICA 75 MG ORAL CAPSULE PREGABALIN Inactive SYMBICORT 160-4.5 MCG/ACT INHALATION AEROSOL 2 puffs bid wit h rinse after SYMBICORT 160-4.5 MCG/ACT INHALATION AEROSOL BUDESONIDE- FORMOTEROL FUMARATE Inactive PROMETHAZINE-CODEINE 6.25-10 MG/5ML ORAL SYRUP 1 tsp b y mouth every 8 hours prn cough PROMETHAZINE-CODEINE 6.25-10 MG/ 5ML ORAL SYRUP 811287 PROMETHAZINE-CODEINE Inactive CYMBALTA 30 MG ORAL CAPSULE DELAYED RELEASE PARTICLES 1 cap by mouth daily CYMBALTA 30 MG ORAL CAPSULE DELAYED RELE ASE PARTICLES 120282 DULOXETINE HCL Inactive PREMARIN 0.625 MG ORAL TABLET TAKE 1 TAB BY MOUTH DAILY PREMARIN 0.625 MG ORAL TABLET ESTROGENS CONJUGATED Inactive CHERATUSSIN AC 100-10 MG/5ML ORAL SYRUP 1 tsp by mouth every 4 hours as needed for cough CHERATUSSIN AC 100-10 MG/5ML ORAL SYRUP 9 81070 GUAIFENESIN-CODEINE Inactive PROMETHAZINE-CODEINE 6.25-10 MG/5ML ORAL SYRUP 1 tsp b y mouth every 6 hours if needed for cough PROMETHAZINE-CODEINE 6.25-10 MG/5ML ORAL SYRUP 336056 PROMETHAZINE-CODEINE Inactive CHERATUSSIN AC 100-10 MG/5ML ORAL SYRUP 1 tsp by mouth every 4 hours as needed for cough CHERATUSSIN AC 100-10 MG/5ML ORAL SYRUP 9 24713 GUAIFENESIN-CODEINE Inactive FLUTICASONE PROPIONATE 50 MCG/ACT NASAL SUSPENSION 1 t o 2 sprays each nostril daily FLUTICASONE PROPIONATE 50 MCG/AC T NASAL SUSPENSION 9838894 FLUTICASONE PROPIONATE Inactive PREDNISONE 20 MG ORAL TABLET 3 tab PO qd x 2d, 2 tab P O qd x 2d, 1 tab PO qd x 2d, 1/2 tab PO qd x 2d PREDNISONE 20 MG ORAL TAB LET 328981 PREDNISONE Inactive LEVOFLOXACIN 500 MG ORAL TABLET 1 tab PO daily x 10 days LEVOFLOXACIN 500 MG ORAL TABLET 078980 LEVOFLOXACIN Inactive CYCLOBENZAPRINE HCL 10 MG ORAL TABLET 1 tablet by mouth BID prn had pain CYCLOBENZAPRINE HCL 10 MG ORAL TABLET 830892 CYCLOBENZAPRINE HCL Inactive ZOCOR 40 MG ORAL TABLET 1 tab by mouth daily 4 ZOCOR 40 MG ORAL TABLET 958956 SIMVASTATIN Inactive TUSSIONEX PENNKINETIC ER 10-8 MG/5ML [...] FLUTICASONE PROPIO EFE 50 MCG/ACT NASAL SUSPENSION 6320081 FLUTICASONE PROPIONATE Inactive TUSSIONEX PENNKINETIC ER 10-8 [...] three days PREDNISONE 20 MG ORAL TABLET 335049 PREDNIS ONE Inactive PROAIR HFA 108 (90 BASE) MCG/ACT INHALATION AEROSOL SO LUTION 2 puffs four times a day as needed PROAIR HFA 108 (90 B ASE) MCG/ACT INHALATION AEROSOL SOLUTION ALBUTEROL SULFATE Inactive ZITHROMAX Z-REYNA 250 MG ORAL TABLET 2 today, then 1 daily for 4 d ays ZITHROMAX Z-REYNA 250 MG ORAL TABLET 078518 AZITHROMYCIN Inactive CEFDINIR 300 MG ORAL CAPSULE by mouth twice a day 2010 CEFDINIR 300 MG ORAL CAPSULE 181882 CEFDINIR Inactive CEFDINIR 300 MG ORAL CAPSULE by mouth twice a day 2010 CEFDINIR 300 MG ORAL CAPSULE 759436 CEFDINIR Inactive CEFDINIR 300 MG ORAL CAPSULE by mouth twice a day 2010 CEFDINIR 300 MG ORAL CAPSULE 454294 CEFDINIR Inactive CEFDINIR 300 MG ORAL CAPSULE by mouth twice a day 2011 CEFDINIR 300 MG ORAL CAPSULE 628155 CEFDINIR Inactive ZITHROMAX 250 MG ORAL TABLET 2 po today, then 1 po q days 2-5 20 03/07/07 ZITHROMAX 250 MG ORAL TABLET 913824 AZITHROMYCIN [place] ctive CEFDINIR 300 MG ORAL CAPSULE by mouth twice a day 2011 CEFDINIR 300 MG ORAL CAPSULE 528026 CEFDINIR Inactive PREDNISONE 20 MG ORAL TABLET 2 tabs daily for 3 days, 1 tab daily for 3 days, 1/2 tab daily for 2 days PREDNISONE 20 MG ORAL T ABLET 146254 PREDNISONE Inactive AVELOX 400 MG ORAL TABLET 1 tab by mouth daily AVELOX 400 MG ORAL TABLET 929253 MOXIFLOXACIN HCL Inactive AVELOX 400 MG ORAL TABLET 1 tab by mouth daily AVELOX 400 MG ORAL TABLET 440716 MOXIFLOXACIN HCL Inactive PREDNISONE 20 MG ORAL TABLET Take 3 tabs daily for 3 d ays, 2 tabs daily for 3 days, 1 tab daily for 3 days, 1/2 tab daily for 3 days 11/07 PREDNISONE 20 MG ORAL TABLET 802787 PREDNISONE Inactive LEVAQUIN 500 MG ORAL TABLET take one po QD LEVAQUIN 500 MG ORAL TABLET 399756 LEVOFLOXACIN Inactive AZITHROMYCIN 250 MG ORAL TABLET 2 po qd x 1 day, then 1 po q d x 4 days AZITHROMYCIN 250 MG ORAL TABLET 143936 AZITHROMY GIOVANNI Inactive MEDROL 4 MG ORAL TABLET THERAPY PACK 6 tabs on day 1, 5 tabs on day 2, 4 tabs on day 3, 3 tabs on day 4, 2 tabs on day 5, 1 tab on day 6 2013 MEDROL 4 MG ORAL TABLET THERAPY PACK 038210 METHYLPREDNISOLONE [place] ctive CHERATUSSIN AC 100-10 MG/5ML ORAL SYRUP 5ml po q6hr PRN Cough 20 13/04/14 CHERATUSSIN AC 100-10 MG/5ML ORAL SYRUP 126406 GUAIFENE SIN-CODEINE Inactive TRIAMCINOLONE ACETONIDE 0.1 % EXTERNAL CREAM apply three roger es daily prn rash TRIAMCINOLONE ACETONIDE 0.1 % EXTERNAL CREAM 101 4314 TRIAMCINOLONE ACETONIDE Inactive AZITHROMYCIN 250 MG ORAL TABLET 2 po qd x 1 day, then 1 po q d x 4 days AZITHROMYCIN 250 MG ORAL TABLET 710384 AZITHROMY GIOVANNI Inactive MEDROL 4 MG ORAL TABLET THERAPY PACK 6 pills x 1 day, then 5 pills x 1 day then 4 pills x 1 day, then 3 pills x 1 day, then 2 pills x 1 day, then 1 pill x 1 day, then stop MEDROL 4 MG ORAL TABLET THERAPY PACK 008723 METHYLPREDNISOLONE Inactive AMOXICILLIN 500 MG ORAL CAPSULE 1 tab by mouth 3 times daily x 10 days AMOXICILLIN 500 MG ORAL CAPSULE 503450 AMOXICILL IN Inactive AMOXICILLIN 500 MG ORAL CAPSULE 1 tab by mouth 3 times daily x 10 days AMOXICILLIN 500 MG ORAL CAPSULE 913688 AMOXICILL IN Inactive ZITHROMAX 250 MG ORAL TABLET 2 po today, then 1 po q days 2-5 20 12/08/14 ZITHROMAX 250 MG ORAL TABLET 427780 AZITHROMYCIN [place] ctive AUGMENTIN 875-125 MG ORAL TABLET 1 po BID x 10 days 20 13/01/20 AUGMENTIN 875-125 MG ORAL TABLET 625746 AMOXICILLIN-POT CLAVULANATE Inactive ZITHROMAX Z-REYNA 250 MG ORAL TABLET 2 today, then 1 daily for 4 d ays ZITHROMAX Z-REYNA 250 MG ORAL TABLET 643022 AZITHROMYCIN Inactive ZITHROMAX 250 MG ORAL TABLET 2 po today, then 1 po q days 2-5 20 14/03/21 ZITHROMAX 250 MG ORAL TABLET 383873 AZITHROMYCIN [place] ctive ZITHROMAX Z-REYNA 250 MG ORAL TABLET 2 today, then 1 daily for 4 d ays ZITHROMAX Z-REYNA 250 MG ORAL TABLET 641767 AZITHROMYCIN Inactive CEFDINIR 300 MG ORAL CAPSULE 1 po BID x 10 days 06/21 CEFDINIR 300 MG ORAL CAPSULE 451635 CEFDINIR Inactive ZITHROMAX 250 MG ORAL TABLET 2 po today, then 1 po q days 2-5 20 13/08/10 ZITHROMAX 250 MG ORAL TABLET 797022 AZITHROMYCIN [place] ctive LEVAQUIN 500 MG ORAL TABLET 1 tablet by mouth daily 20 13/09/24 LEVAQUIN 500 MG ORAL TABLET 590535 LEVOFLOXACIN Inactive SINGULAIR 10 MG ORAL TABLET 1 po qday for allergies 20 14/01/12 SINGULAIR 10 MG ORAL TABLET [id number] MONTELUKAST SODIUM Inactive AMOXICILLIN 500 MG ORAL CAPSULE 2 po BID x 10 days 201 09/29/08 AMOXICILLIN 500 MG ORAL CAPSULE [id number] AMOXICILLIN Inactive PREDNISONE 20 MG ORAL TABLET 2 tabs daily for 3 days, 1 tab daily for 3 days, 1/2 tab daily for 2 days PREDNISONE 20 MG ORAL T ABLET 971295 PREDNISONE Inactive ZITHROMAX Z-REYNA 250 MG ORAL TABLET 2 today, then 1 daily for 4 d ays ZITHROMAX Z-REYNA 250 MG ORAL TABLET 355820 AZITHROMYCIN Inactive PREDNISONE 20 MG ORAL TABLET 2 tabs daily for 3 days, 1 tab daily for 3 days, 1/2 tab daily for 2 days PREDNISONE 20 MG ORAL T ABLET [id number] PREDNISONE Inactive ZITHROMAX 250 MG ORAL TABLET 2 po today, then 1 po q days 2-5 20 14/09/04 ZITHROMAX 250 MG ORAL TABLET 865042 AZITHROMYCIN Greer ctive AMOXICILLIN 500 MG ORAL CAPSULE 1 cap by mouth three times a day AMOXICILLIN 500 MG ORAL CAPSULE 923213 AMOXICILLIN Inactive TERBINAFINE HCL 250 MG ORAL TABLET 1 qDay for nail fungus 7 TERBINAFINE HCL 250 MG ORAL TABLET 294394 TERBINAFINE HCL Inact nael AUGMENTIN 875-125 MG ORAL TABLET 1 po BID x 10 days 16/03/22 AUGMENTIN 875-125 MG ORAL TABLET 202947 AMOXICILLIN-POT CLAVULANATE Inactive PREDNISONE 20 MG ORAL TABLET 2 po qd x 5 days PREDNISONE 20 MG ORAL TABLET 610646 PREDNISONE Inactive AZITHROMYCIN 250 MG ORAL TABLET 2 po qd x 1 day, then 1 po q d x 4 days AZITHROMYCIN 250 MG ORAL TABLET 354627 AZITHROMY GIOVANNI Inactive Vital Signs Date Name [...] 0.96 mg/dL 0.60-1.30 sodium, serum 139 mmol/L 514-848 8727/10/12 potassium, serum 3.8 mmol/L 3.5-5.2 chloride, serum [...] 136-145 Encounters Code Encounter Date Provider Facility CPT-96763 [id number] Vst-Est Level III 11:12:16 CDT Br tami Bess DO [facility] CPT-16230 Level 3 Est. Patient 11:34:49 LIBRARY HELPER Perez Mora MD [facility] CPT-48939 Level 4 Est. Patient 09:51:32 LIBRARY HELPER Carlton rich MD [facility] CPT-61662 Level 3 Est. Patient 10:26:00 LIBRARY HELPER Elise stephenson APRN [facility] CPT-04291 Level 3 Est. Patient 13:35:41 LIBRARY HELPER Carlton rich MD [facility] CPT-77599 Level 3 Est. Patient 10:03:52 LIBRARY HELPER Carlton rich MD [facility] CPT-91920 Level 3 Est. Patient 12:17:50 CDT Hugo Restrepo MD [facility] CPT-24346 Level 3 Est. Patient 13:42:38 CDT Elise Are ll [facility] [place] CPT-64638 Level 3 Est. Patient 13:23:51 CDT Diya cobian [facility] [place] CPT-68372 Level 3 Est. Patient 14:22:19 LIBRARY HELPER Diya cobian [facility] [place] CPT-52345 Level 3 Est. Patient 10:11:46 CDT Carlton rich MD [facility] CPT-51526 Level 3 Est. Patient 17:29:43 CDT Elise Are ll [facility] [place] CPT-28797 Level 3 Est. Patient 11:58:06 CDT Elise Are ll [facility] [place] CPT-20592 Level 4 Est. Patient 14:36:51 CDT Carlton rich MD [facility] CPT-61893 Level 3 Est. Patient 18:16:00 LIBRARY HELPER Blaine HERNANDEZ [facility] CPT-02984 Level 3 Est. Patient 09:45:49 LIBRARY HELPER Carlton rich MD [facility] CPT-10286 Level 3 Est. Patient 13:19:20 CDT Carlton rich MD [facility] CPT-21041 Level 3 Est. Patient 13:06:43 CDT Ridge tam DO [facility] CPT-39952 Level 3 Est. Patient 10:03:07 CDT Perez Mora MD [facility] CPT-87081 Level 3 Est. Patient 19:50:35 LIBRARY HELPER Carlton rich MD [facility]-42420 Level 4 Est. Patient 18:05:01 LIBRARY HELPER Carlton rich MD [facility]-04350 Level 3 Est. Patient 10:45:55 LIBRARY HELPER Hugo Restrepo MD [facility]-98872 Level 3 Est. Patient 14:12:49 CDT Griffin HERNANDEZ [facility]-58915 Level 3 Est. Patient 17:37:24 CDT Carlton rich MD [facility]-56647 Level 3 Est. Patient 16:51:54 CDT Carlton rich MD [facility]-31404 Level 3 Est. Patient 12:18:11 CDT Hugo Restrepo MD [facility]-04359 Level 3 Est. Patient 11:30:25 CDT Marcy crisostomo MD PhD [facility]-56795 Level 3 Est. Patient 12:00:47 LIBRARY HELPER Carlton rich MD [facility]-22393 Level 3 Est. Patient 16:31:06 LIBRARY HELPER Carlton rich MD [facility]-76028 Level 3 Est. Patient 16:23:24 LIBRARY HELPER Ridge tam DO [facility]-82432 Level 3 Est. Patient 12:34:12 CDT Carlton rich MD [facility] CPT-11719 Level 2 Est. Patient 15:43:33 CDT Robi armstrong MD [facility]-65765 Level 4 Est. Patient 14:04:44 CDT Carlton rich MD [facility]-50640 Level 3 Est. Patient 05:47:59 CDT Ridge tam [facility]-66437 Level 3 Est. Patient 13:12:53 LIBRARY HELPER Carlton rich MD [facility] CPT-96607 Level 3 Est. Patient 14:26:53 CDT Hugo [...] CPT-J1100 Decadron 6mg (Dexamethasone) 14:32:13 CDT 2 CPT-77919 Hip bilat min 2V w AP pelvis 13:16:20 CDT 2 CPT-38600 Pelvis only 13:07:33 CDT CPT-32023 Spec Collection and Handling Fee 11:25:12 C DT CPT-19566 Fluzone Quadrivalent Intramuscular Suspe nsion 0.5 ML 14:31:55 CDT CPT-08952 Abx/Therapy Injection 13:28:47 LIBRARY HELPER CPT-J2930 Solu Medrol 125 mg (Methyl Prednisolone Sodium Succinate) 12:00:47 LIBRARY HELPER CPT-87395 Venipuncture Draw Fee 11:33:31 CDT CPT-12952 EKG Trac and Interp 11:21:09 CDT CPT-02470 Chest 2V Frontal and Lat 11:21:09 CDT 12/15 CPT-49695 Venipuncture Draw Fee 08:02:34 CDT CPT-59630 Chest 2V Frontal and Lat 05:47:59 CDT 06/05
--- OUTSIDE RECORDS SUMMARY | 2019-10-08 09:27 | XMS REPORT | Clinical Summary ---
Author Author Caitlin, Juliana Martinez Organization [facility] Address Unknown Phone Unavailable Allergies, Adverse Reactions, [...] po q d x 4 days AZITHROMYCIN [id number] No Longer Active Ridge Bess DO Active PREDNISONE 20 MG ORAL TABLET two tabs by mouth today, then one tab by mouth days two and three and four PREDNISONE 07844460985 Active Lyndsay Mora MD Active PREDNISONE 20 MG ORAL TABLET 2 po qd x 5 days P REDNISONE 73378680910 No Longer Active Perez Mora MD Active PROAIR HFA 108 (90 BASE) MCG/ACT INHALATION AEROSOL SO LUTION 2 puffs four times a day as needed ALBUTEROL SULFATE 85363721493 No Long er Active Becky FUENTES Active ASPIRIN 81 MG ORAL TABLET 1 po qd ASPIRIN 32693590439 Active Carlton Hu MD Active PREDNISONE 20 MG ORAL TABLET 1 tab twice daily for 3 d ay, then one daily for three days PREDNISONE 72266480099 No Longer Active Carlton uH MD Active AUGMENTIN 875-125 MG ORAL TABLET 1 po BID x 10 days 20 16/03/22 AMOXICILLIN-POT CLAVULANATE 41307004027 No Longer Active Elise Garcia APRN Active TERBINAFINE HCL 250 MG ORAL TABLET 1 qDay for nail fungus 7 TERBINAFINE HCL 87603286045 No Longer Active Carlton Hu MD A ctive TUSSIONEX PENNKINETIC ER 10-8 MG/5ML ORAL SUSPENSION E XTENDED RELEASE 5ml po q12hr PRN Cough HYDROCOD POLST-CHLORPHEN POLST 65258882665 Active Carlton Hu MD Active AMOXICILLIN 500 MG ORAL CAPSULE 1 cap by mouth three times a day AMOXICILLIN 90841645872 No Longer Active Carlton Hu MD Active ELMIRON 100 MG ORAL CAPSULE 2 tablets in the am and 1 tablet at hs PENTOSAN POLYSULFATE SODIUM 01563184822 No Longer Active Robert Hu MD Active MUCINEX D 60-600 MG ORAL TABLET EXTENDED RELEASE 12 HOUR 1 t ab po q am PSEUDOEPHEDRINE-GUAIFENESIN 71841491929 No Longer Act nael Carlton Hu MD Active MUCINEX DM MAXIMUM STRENGTH 60-1200 MG ORAL TABLET EXT ENDED RELEASE 12 HOUR 1 tab po q am DEXTROMETHORPHAN-GUAIFENESIN 63809975676 No Longer Active Carlton Hu MD Active TUSSIONEX PENNKINETIC ER 10-8 MG/5ML ORAL SUSPENSION E XTENDED RELEASE 5ml po q12hr PRN Cough HYDROCOD POLST-CHLORPHEN POLST 5 3903300903 No Longer Active Carlton Hu MD Active POTASSIUM CHLORIDE ER 20 MEQ ORAL TABLET EXTENDED RELE ASE Take 1 by mouth 4 times daily for 7 days POTASSIUM CHLORIDE 59495417857 No Longer Active Carlton Hu MD Active ZITHROMAX 250 MG ORAL TABLET 2 po today, then 1 po q days 2-5 14/09/04 AZITHROMYCIN 32875711620 No Longer Active Elise Garcia APRN Active TUSSIONEX PENNKINETIC ER 10-8 MG/5ML ORAL SUSPENSION E XTENDED RELEASE 5 ml twice a day as needed for cough HYDROCOD POLST-CHLORPH EN POLST 64061070667 No Longer Active Elise Garcia APRN Active MONTELUKAST SODIUM 10 MG ORAL TABLET 1 po daily for Allergy MONTELUKAST SODIUM 90725590887 Active Carlton Hu MD Ac tive TUSSIONEX PENNKINETIC ER 10-8 MG/5ML ORAL SUSPENSION E XTENDED RELEASE 5ml po q12hr PRN Cough HYDROCOD POLST-CHLORPHEN POLST 5 1753966833 No Longer Active Hugo Restrepo MD Active GABAPENTIN 100 MG ORAL CAPSULE 1 po BID for fibromyalgia GABAPENTIN 20976847777 Active Carlton Hu MD Active LYRICA 100 MG ORAL CAPSULE Take 1 tab po BID for fibromyalgia 20 11/08/21 PREGABALIN 14783101030 No Longer Active Elise Garcia ELDERLY SITTER A ctive PREDNISONE 20 MG ORAL TABLET 2 tabs daily for 3 days, 1 tab daily for 3 days, 1/2 tab daily for 2 days PREDNISONE 61009759304 No Longer Active Jillina Frazell ELDERLY SITTER Active TUSSIONEX PENNKINETIC ER 10-8 MG/5ML ORAL SUSPENSION E XTENDED RELEASE 5 mL PO q 12 hrs PRN cough HYDROCOD POLST-CHLORPHEN POLST 070339 70692 No Longer Active Jillina Frazell ELDERLY SITTER Active FLUTICASONE PROPIONATE 50 MCG/ACT NASAL SUSPENSION 2 s prays each nostril daily until bottle is empty FLUTICASONE PROPIONATE 125805508 99 No Longer Active Jillina Frazell ELDERLY SITTER Active ASMANEX 60 METERED DOSES 220 MCG/INH INHALATION AEROSO L POWDER BREATH ACTIVATED 1 puff bid with rinse after MOMETASONE FUROATE 8635354 4102 No Longer Active Jillina Frazell ELDERLY SITTER Active ZITHROMAX Z-REYNA 250 MG ORAL TABLET 2 today, then 1 daily for 4 d ays AZITHROMYCIN 78559632049 No Longer Active Elise Garcia ELDERLY SITTER Active TUSSIONEX PENNKINETIC ER 10-8 MG/5ML ORAL SUSPENSION E XTENDED RELEASE 5ml po q12hr PRN Cough HYDROCOD POLST-CHLORPHEN POLST 5 4159070392 No Longer Active Elise Garcia ELDERLY SITTER Active PREDNISONE 20 MG ORAL TABLET 2 tabs daily for 3 days, 1 tab daily for 3 days, 1/2 tab daily for 2 days PREDNISONE 61524892420 No Longer Active Jillina Frazell ELDERLY SITTER Active AMOXICILLIN 500 MG ORAL CAPSULE 2 po BID x 10 days 201 09/29/08 AMOXICILLIN 51445867666 No Longer Active Jillina Frazell ELDERLY SITTER Act nael SINGULAIR 10 MG ORAL TABLET 1 po qday for allergies 20 14/01/12 MONTELUKAST SODIUM 50932369886 No Longer Active Carlton Hu MD Active LEVAQUIN 500 MG ORAL TABLET 1 tablet by mouth daily 20 13/09/24 LEVOFLOXACIN 19723931948 No Longer Active Carlton Hu MD Acti ve FLUTICASONE PROPIONATE 50 MCG/ACT NASAL SUSPENSION 2 s prays each nostril daily for 2 weeks, then 1 spray each nostril daily. FLUTICASONE PROPIONATE 21339704946 Active Elise Areseema KHAN Active ZITHROMAX 250 MG ORAL TABLET 2 po today, then 1 po q days 2-5 20 13/08/10 AZITHROMYCIN 31880719466 No Longer Active Elise Garcia APRN Active XANAX 0.5 MG ORAL TABLET one tablet by mouth daily prn anxiety 2015 ALPRAZOLAM 06120900495 Active ALFREDO Holly Active CYMBALTA 30 MG ORAL CAPSULE DELAYED RELEASE PARTICLES 1 cap by mouth daily for depression DULOXETINE HCL 24703222284 Active ALFREDO Holly Active CEFDINIR 300 MG ORAL CAPSULE 1 po BID x 10 days CEFDINIR 21022475581 No Longer Active Carlton Hu MD Active ZOCOR 40 MG ORAL TABLET 1 tab by mouth daily SI MVASTATIN 49643069323 No Longer Active Carlton Hu MD Active CYCLOBENZAPRINE HCL 10 MG ORAL TABLET 1 tablet by mouth BID prn had pain CYCLOBENZAPRINE HCL 18271305472 No Longer Active Jayden Hu MD Active LEVOFLOXACIN 500 MG ORAL TABLET 1 tab PO daily x 10 days LEVOFLOXACIN 68348262597 No Longer Active Carlton Hu MD Acti ve PREDNISONE 20 MG ORAL TABLET 3 tab PO qd x 2d, 2 tab P O qd x 2d, 1 tab PO qd x 2d, 1/2 tab PO qd x 2d PREDNISONE 82229879853 No Lo nger Active Carlton Hu MD Active FLUTICASONE PROPIONATE 50 MCG/ACT NASAL SUSPENSION 1 t o 2 sprays each nostril daily FLUTICASONE PROPIONATE 89662932953 No Longer Ac tive Blaine HERNANDEZ Active CHERATUSSIN AC 100-10 MG/5ML ORAL SYRUP 1 tsp by mouth every 4 hours as needed for cough GUAIFENESIN-CODEINE 12495474391 No Longe r Active Blaine HERNANDEZ Active PROMETHAZINE-CODEINE 6.25-10 MG/5ML ORAL SYRUP 1 tsp b y mouth every 6 hours if needed for cough PROMETHAZINE-CODEINE 39074968745 No Longer Active Blaine HERNANDEZ Active CHERATUSSIN AC 100-10 MG/5ML ORAL SYRUP 1 tsp by mouth every 4 hours as needed for cough GUAIFENESIN-CODEINE 33456140625 No Longe r Active Blaine HERNANDEZ Active ZITHROMAX Z-REYNA 250 MG ORAL TABLET 2 today, then 1 daily for 4 d ays AZITHROMYCIN 03946170432 No Longer Active Columba Raida Act nael ZITHROMAX 250 MG ORAL TABLET 2 po today, then 1 po q days 2-5 20 14/03/21 AZITHROMYCIN 22623573579 No Longer Active Carlton Hu MD Active ZITHROMAX Z-REYNA 250 MG ORAL TABLET 2 today, then 1 daily for 4 d ays AZITHROMYCIN 69022561944 No Longer Active Columba Raida Act nael AUGMENTIN 875-125 MG ORAL TABLET 1 po BID x 10 days 13/01/20 AMOXICILLIN-POT CLAVULANATE 32990320529 No Longer Active Diya De Guzman APRN Active ZITHROMAX 250 MG ORAL TABLET 2 po today, then 1 po q days 2-5 20 12/08/14 AZITHROMYCIN 87313423142 No Longer Active Carlton Hu MD Active TRAMADOL HCL 50 MG ORAL TABLET 1 po tid with ES Tylenol TRAMADOL HCL 02469837018 Active ALFREDO Holly Active PREMARIN 0.625 MG ORAL TABLET TAKE 1 TAB BY MOUTH DAILY ESTROGENS CONJUGATED 31984490474 No Longer Active Ridge Bess DO A ctive CYMBALTA 30 MG ORAL CAPSULE DELAYED RELEASE PARTICLES 1 cap by mouth daily DULOXETINE HCL 34888886120 No Longer Active Ridge tam DO Active AMOXICILLIN 500 MG ORAL CAPSULE 1 tab by mouth 3 times daily x 10 days AMOXICILLIN 22458634851 No Longer Active Carlton bustamante MD Active AMOXICILLIN 500 MG ORAL CAPSULE 1 tab by mouth 3 times daily x 10 days AMOXICILLIN 77860996388 No Longer Active Carlton bustamante MD Active PROMETHAZINE-CODEINE 6.25-10 MG/5ML ORAL SYRUP 1 tsp b y mouth every 8 hours prn cough PROMETHAZINE-CODEINE 61611512263 No Longer Acti ve Carlton Hu MD Active MEDROL 4 MG ORAL TABLET THERAPY PACK 6 pills x 1 day, then 5 pills x 1 day then 4 pills x 1 day, then 3 pills x 1 day, then 2 pills x 1 day, then 1 pill x 1 day, then stop METHYLPREDNISOLONE 79205835826 No Long er Active Perez Mora MD Active AZITHROMYCIN 250 MG ORAL TABLET 2 po qd x 1 day, then 1 po q d x 4 days AZITHROMYCIN 73442823561 No Longer Active Perez Ambriz MD Active SYMBICORT 160-4.5 MCG/ACT INHALATION AEROSOL 2 puffs bid wit h rinse after BUDESONIDE-FORMOTEROL FUMARATE 28757107259 N o Longer Active Perez Mora MD Active LYRICA 75 MG ORAL CAPSULE TAKE 1 CAPSULE BY MOUTH TWICE DAILY PREGABALIN 93612760566 No Longer Active Carlton Hu MD Acti ve TOPAMAX 25 MG ORAL TABLET 1 qHS x 1 week, then 1 BID x 1 week, then 1 qAM and 2 qHS x 1 week, then 2 BID (migraine prevention) T OPIRAMATE 96873164639 No Longer Active Jerica FUENTES Active TOPAMAX 50 MG ORAL TABLET take 1 tab po BID for migraines. 07/02 TOPIRAMATE 33247121096 No Longer Active Jerica FUENTES Active TOPAMAX 100 MG ORAL TABLET Take 1 tablet po bid TO PIRAMATE 17715913587 Active ALFREDO Holly Active TRIAMCINOLONE ACETONIDE 0.1 % EXTERNAL CREAM apply three roger es daily prn rash TRIAMCINOLONE ACETONIDE 87380711555 No Longer Active Carlton Hu MD Active PAXIL 40 MG ORAL TABLET take 1 tab po qday for depression 0 PAROXETINE HCL 82715366551 Active ALFREDO Holly Active CHERATUSSIN AC 100-10 MG/5ML ORAL SYRUP 5ml po q6hr PRN Cough 20 13/04/14 GUAIFENESIN-CODEINE 75111622641 No Longer Active Carlton Hu MD Active MEDROL 4 MG ORAL TABLET THERAPY PACK 6 tabs on day 1, 5 tabs on day 2, 4 tabs on day 3, 3 tabs on day 4, 2 tabs on day 5, 1 tab on day 6 2013 METHYLPREDNISOLONE 10351958032 No Longer Active Perez Mora MD Active AZITHROMYCIN 250 MG ORAL TABLET 2 po qd x 1 day, then 1 po q d x 4 days AZITHROMYCIN 58709370667 No Longer Active Perez Ambriz MD Active PROPRANOLOL HCL 60 MG ORAL TABLET 1 PO Q D PROPRANOLOL HCL 18548179545 No Longer Active Perez Mora MD Activ e CHERATUSSIN AC 100-10 MG/5ML ORAL SYRUP take one tsp po Q 6h ours prn cough GUAIFENESIN-CODEINE 71999806311 No Longer Active Zia Mora MD Active AUGMENTIN 875-125 MG ORAL TABLET 1 tab by mouth twice daily with food AMOXICILLIN-POT CLAVULANATE 83251941097 No Longer Act nael Mora MD Active CHERATUSSIN AC 100-10 MG/5ML ORAL SYRUP 1 tsp by mouth every 4 hours as needed for cough GUAIFENESIN-CODEINE 83640237955 No Longe r Active Hugo Restrepo MD Active ACETAMINOPHEN-CODEINE #3 300-30 MG ORAL TABLET 1 PO Q 4-6 HRS [place] PA[place] ACETAMINOPHEN-CODEINE 21606964369 No Longer Active Hugo Restrepo MD Active LEVAQUIN 500 MG ORAL TABLET take one po QD LEVO FLOXACIN 52296375843 No Longer Active Griffin HERNANDEZ Active PREDNISONE 20 MG ORAL TABLET Take 3 tabs daily for 3 d ays, 2 tabs daily for 3 days, 1 tab daily for 3 days, 1/2 tab daily for 3 days 11/07 PREDNISONE 71370816557 No Longer Active Carlton Hu MD Acti ve AVELOX 400 MG ORAL TABLET 1 tab by mouth daily MOXIFLOXACIN HCL 53521464488 No Longer Active Carlton Hu MD Active CHERATUSSIN AC 100-10 MG/5ML ORAL SYRUP 1 tsp by mouth every 4 hours as needed for cough GUAIFENESIN-CODEINE 46279456895 No Longe r Active Hugo Restrepo MD Active AVELOX 400 MG ORAL TABLET 1 tab by mouth daily MOXIFLOXACIN HCL 07829454571 No Longer Active Marcy De La Rosa MD PhD Active TERBINAFINE HCL 250 MG ORAL TABLET 1 qDay T ERBINAFINE HCL 07244886258 No Longer Active Marcy De La Rosa MD PhD Active CHERATUSSIN AC 100-10 MG/5ML ORAL SYRUP 1 tsp by mouth every 4 hours as needed for cough GUAIFENESIN-CODEINE 58946802826 No Longe r Active Marcy De La Rosa MD PhD Active AVELOX 400 MG ORAL TABLET 1 tab by mouth daily MOXIFLOXACIN HCL 90106029812 No Longer Active Marcy C Madril MD PhD Active HYDROCODONE-ACETAMINOPHEN 5-325 MG ORAL TABLET 1 po q 6hr PRN co ugh HYDROCODONE-ACETAMINOPHEN 06326135736 No Longer Active Marcy De La Rosa MD PhD Active PREDNISONE 20 MG ORAL TABLET 2 tabs daily for 3 days, 1 tab daily for 3 days, 1/2 tab daily for 2 days PREDNISONE 63926171364 No Longer Active Carlton Hu MD Active CEFDINIR 300 MG ORAL CAPSULE by mouth twice a day 2011 CEFDINIR 31794174146 No Longer Active Carlton Hu MD Acti ve HYDROCHLOROTHIAZIDE 25 MG ORAL TABLET 1 TAB PO DAILY HYDROCHLOROTHIAZIDE 88348291256 Active ALFREDO Holly Ac tive ACETAMINOPHEN-CODEINE #3 300-30 MG ORAL TABLET 1 tablet po q 4-6 hrs prn pain ACETAMINOPHEN-CODEINE 05807750841 No Longer Active Ridge Bess DO Active ZITHROMAX 250 MG ORAL TABLET 2 po today, then 1 po q days 2-5 20 03/07/07 AZITHROMYCIN 55020059042 No Longer Active Carlton Hu MD Active CHERATUSSIN AC 100-10 MG/5ML ORAL SYRUP take 1 tsp po q4-6 h ours prn cough GUAIFENESIN-CODEINE 98310168289 No Longer Active Jayden Hu MD Active ACETAMINOPHEN-CODEINE #3 300-30 MG ORAL TABLET 1 PO Q 4-6 HR PRN PAIN ACETAMINOPHEN-CODEINE 87476223444 No Longer Active Da vid Lyndsay Hu MD Active LORTAB 7.5-500 MG/15ML ORAL ELIXIR 7.5 ml po q 4 hour prn cough HYDROCODONE-ACETAMINOPHEN 39980475738 No Longer Active Carlton Hu MD Active PREDNISONE 20 MG ORAL TABLET 1 po bid 3 days, then 1 po q day 3 days PREDNISONE 03261855279 No Longer Active Carlton Hu MD Active CEFDINIR 300 MG ORAL CAPSULE by mouth twice a day 2011 CEFDINIR 50269308769 No Longer Active Carlton Hu MD Acti ve CEFDINIR 300 MG ORAL CAPSULE by mouth twice a day 2010 CEFDINIR 30144324839 No Longer Active Carlton Hu MD Acti ve CEFDINIR 300 MG ORAL CAPSULE by mouth twice a day 2010 CEFDINIR 31296822742 No Longer Active Carlton Hu MD Acti ve TESSALON PERLES 100 MG ORAL CAPSULE 1 tablet by mouth 3 times daily as needed for cough BENZONATATE 55877569620 No Longer Active Carlton Hu MD Active CEFDINIR 300 MG ORAL CAPSULE by mouth twice a day 2010 CEFDINIR 53862000430 No Longer Active Carlton Hu MD Acti ve ZITHROMAX Z-REYNA 250 MG ORAL TABLET 2 today, then 1 daily for 4 d ays AZITHROMYCIN 91705003714 No Longer Active Hugo Restrepo MD Active TESSALON PERLES 100 MG ORAL CAPSULE 1 tablet by mouth 3 times daily as needed for cough TESSALON PERLES 100 MG ORAL CAPSULE 23228 7 BENZONATATE Inactive PREDNISONE 20 MG ORAL TABLET 1 po bid 3 days, then 1 po q day 3 days PREDNISONE 20 MG ORAL TABLET 644896 PREDNISONE Greer ctive LORTAB 7.5-500 MG/15ML ORAL [...] cough CHERATUSSIN AC 100-10 MG/5ML ORAL SYRUP 016246 GUAIFENESIN-CODEINE Inactive ACETAMINOPHEN-CODEINE #3 300-30 MG ORAL TABLET 1 tablet po q 4-6 hrs prn pain ACETAMINOPHEN-CODEINE #3 300-30 MG ORAL TABLET ACETAMINOPHEN-CODEINE Inactive HYDROCODONE-ACETAMINOPHEN 5-325 MG ORAL TABLET 1 po q 6hr PRN co ugh HYDROCODONE-ACETAMINOPHEN 5-325 MG ORAL TABLET 350445 HYDROCODONE-ACETAMINOPHEN Inactive AVELOX 400 MG ORAL TABLET 1 tab by mouth daily AVELOX 400 MG ORAL TABLET 331345 MOXIFLOXACIN HCL Inactive CHERATUSSIN AC 100-10 MG/5ML ORAL SYRUP 1 tsp by mouth every 4 hours as needed for cough CHERATUSSIN AC 100-10 MG/5ML ORAL SYRUP 9 67819 GUAIFENESIN-CODEINE Inactive TERBINAFINE HCL 250 MG ORAL TABLET 1 qDay 07/08 TERBINAFINE HCL 250 MG ORAL TABLET 177254 TERBINAFINE HCL Inactive CHERATUSSIN AC 100-10 MG/5ML ORAL SYRUP 1 tsp by mouth every 4 hours as needed for cough CHERATUSSIN AC 100-10 MG/5ML ORAL SYRUP 9 85998 GUAIFENESIN-CODEINE Inactive ACETAMINOPHEN-CODEINE #3 300-30 MG ORAL TABLET 1 PO Q 4-6 HRS [place] ACETAMINOPHEN-CODEINE #3 300-30 MG ORAL TABLET ACETAMINOPHEN-CODEINE Inactive CHERATUSSIN AC 100-10 MG/5ML ORAL SYRUP 1 tsp by mouth every 4 hours as needed for cough CHERATUSSIN AC 100-10 MG/5ML ORAL SYRUP 9 42355 GUAIFENESIN-CODEINE Inactive AUGMENTIN 875-125 MG ORAL TABLET 1 tab by mouth twice daily with food AUGMENTIN 875-125 MG ORAL TABLET 080858 AMOXICIL MADELINE-POT CLAVULANATE Inactive CHERATUSSIN AC 100-10 MG/5ML ORAL SYRUP take one tsp po Q 6h ours prn cough CHERATUSSIN AC 100-10 MG/5ML ORAL SYRUP 825968 GUAIFENESIN-CODEINE Inactive PROPRANOLOL HCL 60 MG ORAL TABLET 1 PO Q D PROPRANOLOL HCL 60 MG ORAL TABLET 038834 PROPRANOLOL HCL Inactive TOPAMAX 50 MG ORAL TABLET take 1 tab po BID for migraines. 07/02 TOPAMAX 50 MG ORAL TABLET 213341 TOPIRAMATE Inacti ve TOPAMAX 25 MG ORAL TABLET 1 qHS x 1 week, then 1 BID x 1 week, then 1 qAM and 2 qHS x 1 week, then 2 BID (migraine prevention) TOPAMAX 25 MG ORAL TABLET 272016 TOPIRAMATE Inactive LYRICA 75 MG ORAL CAPSULE TAKE 1 CAPSULE BY MOUTH TWICE DAILY LYRICA 75 MG ORAL CAPSULE PREGABALIN Inactive SYMBICORT 160-4.5 MCG/ACT INHALATION AEROSOL 2 puffs bid wit h rinse after SYMBICORT 160-4.5 MCG/ACT INHALATION AEROSOL BUDESONIDE- FORMOTEROL FUMARATE Inactive PROMETHAZINE-CODEINE 6.25-10 MG/5ML ORAL SYRUP 1 tsp b y mouth every 8 hours prn cough PROMETHAZINE-CODEINE 6.25-10 MG/ 5ML ORAL SYRUP 664040 PROMETHAZINE-CODEINE Inactive CYMBALTA 30 MG ORAL CAPSULE DELAYED RELEASE PARTICLES 1 cap by mouth daily CYMBALTA 30 MG ORAL CAPSULE DELAYED RELE ASE PARTICLES 542173 DULOXETINE HCL Inactive PREMARIN 0.625 MG ORAL TABLET TAKE 1 TAB BY MOUTH DAILY PREMARIN 0.625 MG ORAL TABLET ESTROGENS CONJUGATED Inactive CHERATUSSIN AC 100-10 MG/5ML ORAL SYRUP 1 tsp by mouth every 4 hours as needed for cough CHERATUSSIN AC 100-10 MG/5ML ORAL SYRUP 9 36372 GUAIFENESIN-CODEINE Inactive PROMETHAZINE-CODEINE 6.25-10 MG/5ML ORAL SYRUP 1 tsp b y mouth every 6 hours if needed for cough PROMETHAZINE-CODEINE 6.25-10 MG/5ML ORAL SYRUP 929436 PROMETHAZINE-CODEINE Inactive CHERATUSSIN AC 100-10 MG/5ML ORAL SYRUP 1 tsp by mouth every 4 hours as needed for cough CHERATUSSIN AC 100-10 MG/5ML ORAL SYRUP 9 32793 GUAIFENESIN-CODEINE Inactive FLUTICASONE PROPIONATE 50 MCG/ACT NASAL SUSPENSION 1 t o 2 sprays each nostril daily FLUTICASONE PROPIONATE 50 MCG/AC T NASAL SUSPENSION 0150881 FLUTICASONE PROPIONATE Inactive PREDNISONE 20 MG ORAL TABLET 3 tab PO qd x 2d, 2 tab P O qd x 2d, 1 tab PO qd x 2d, 1/2 tab PO qd x 2d PREDNISONE 20 MG ORAL TAB LET 054414 PREDNISONE Inactive LEVOFLOXACIN 500 MG ORAL TABLET 1 tab PO daily x 10 days LEVOFLOXACIN 500 MG ORAL TABLET 871160 LEVOFLOXACIN Inactive CYCLOBENZAPRINE HCL 10 MG ORAL TABLET 1 tablet by mouth BID prn had pain CYCLOBENZAPRINE HCL 10 MG ORAL TABLET 451147 CYCLOBENZAPRINE HCL Inactive ZOCOR 40 MG ORAL TABLET 1 tab by mouth daily 4 ZOCOR 40 MG ORAL TABLET 628002 SIMVASTATIN Inactive TUSSIONEX PENNKINETIC ER 10-8 MG/5ML [...] FLUTICASONE PROPIO EFE 50 MCG/ACT NASAL SUSPENSION 5605297 FLUTICASONE PROPIONATE Inactive TUSSIONEX PENNKINETIC ER 10-8 [...] three days PREDNISONE 20 MG ORAL TABLET 695800 PREDNIS ONE Inactive PROAIR HFA 108 (90 BASE) MCG/ACT INHALATION AEROSOL SO LUTION 2 puffs four times a day as needed PROAIR HFA 108 (90 B ASE) MCG/ACT INHALATION AEROSOL SOLUTION ALBUTEROL SULFATE Inactive ZITHROMAX Z-REYNA 250 MG ORAL TABLET 2 today, then 1 daily for 4 d ays ZITHROMAX Z-REYNA 250 MG ORAL TABLET 008380 AZITHROMYCIN Inactive CEFDINIR 300 MG ORAL CAPSULE by mouth twice a day 2010 CEFDINIR 300 MG ORAL CAPSULE 560131 CEFDINIR Inactive CEFDINIR 300 MG ORAL CAPSULE by mouth twice a day 2010 CEFDINIR 300 MG ORAL CAPSULE 219960 CEFDINIR Inactive CEFDINIR 300 MG ORAL CAPSULE by mouth twice a day 2010 CEFDINIR 300 MG ORAL CAPSULE 864320 CEFDINIR Inactive CEFDINIR 300 MG ORAL CAPSULE by mouth twice a day 2011 CEFDINIR 300 MG ORAL CAPSULE 226712 CEFDINIR Inactive ZITHROMAX 250 MG ORAL TABLET 2 po today, then 1 po q days 2-5 20 03/07/07 ZITHROMAX 250 MG ORAL TABLET 349911 AZITHROMYCIN Greer ctive CEFDINIR 300 MG ORAL CAPSULE by mouth twice a day 2011 CEFDINIR 300 MG ORAL CAPSULE 076289 CEFDINIR Inactive PREDNISONE 20 MG ORAL TABLET 2 tabs daily for 3 days, 1 tab daily for 3 days, 1/2 tab daily for 2 days PREDNISONE 20 MG ORAL T ABLET 348893 PREDNISONE Inactive AVELOX 400 MG ORAL TABLET 1 tab by mouth daily AVELOX 400 MG ORAL TABLET 826612 MOXIFLOXACIN HCL Inactive AVELOX 400 MG ORAL TABLET 1 tab by mouth daily AVELOX 400 MG ORAL TABLET 673615 MOXIFLOXACIN HCL Inactive PREDNISONE 20 MG ORAL TABLET Take 3 tabs daily for 3 d ays, 2 tabs daily for 3 days, 1 tab daily for 3 days, 1/2 tab daily for 3 days 11/07 PREDNISONE 20 MG ORAL TABLET 642001 PREDNISONE Inactive LEVAQUIN 500 MG ORAL TABLET take one po QD LEVAQUIN 500 MG ORAL TABLET 389841 LEVOFLOXACIN Inactive AZITHROMYCIN 250 MG ORAL TABLET 2 po qd x 1 day, then 1 po q d x 4 days AZITHROMYCIN 250 MG ORAL TABLET 504709 AZITHROMY GIOVANNI Inactive MEDROL 4 MG ORAL TABLET THERAPY PACK 6 tabs on day 1, 5 tabs on day 2, 4 tabs on day 3, 3 tabs on day 4, 2 tabs on day 5, 1 tab on day 6 2013 MEDROL 4 MG ORAL TABLET THERAPY PACK 569869 METHYLPREDNISOLONE [place] ctive CHERATUSSIN AC 100-10 MG/5ML ORAL SYRUP 5ml po q6hr PRN Cough 20 13/04/14 CHERATUSSIN AC 100-10 MG/5ML ORAL SYRUP 672209 GUAIFENE SIN-CODEINE Inactive TRIAMCINOLONE ACETONIDE 0.1 % EXTERNAL CREAM apply three roger es daily prn rash TRIAMCINOLONE ACETONIDE 0.1 % EXTERNAL CREAM 101 4314 TRIAMCINOLONE ACETONIDE Inactive AZITHROMYCIN 250 MG ORAL TABLET 2 po qd x 1 day, then 1 po q d x 4 days AZITHROMYCIN 250 MG ORAL TABLET 626822 AZITHROMY GIOVANNI Inactive MEDROL 4 MG ORAL TABLET THERAPY PACK 6 pills x 1 day, then 5 pills x 1 day then 4 pills x 1 day, then 3 pills x 1 day, then 2 pills x 1 day, then 1 pill x 1 day, then stop MEDROL 4 MG ORAL TABLET THERAPY PACK 689231 METHYLPREDNISOLONE Inactive AMOXICILLIN 500 MG ORAL CAPSULE 1 tab by mouth 3 times daily x 10 days AMOXICILLIN 500 MG ORAL CAPSULE 929587 AMOXICILL IN Inactive AMOXICILLIN 500 MG ORAL CAPSULE 1 tab by mouth 3 times daily x 10 days AMOXICILLIN 500 MG ORAL CAPSULE 959600 AMOXICILL IN Inactive ZITHROMAX 250 MG ORAL TABLET 2 po today, then 1 po q days 2-5 20 12/08/14 ZITHROMAX 250 MG ORAL TABLET 803428 AZITHROMYCIN Greer ctive AUGMENTIN 875-125 MG ORAL TABLET 1 po BID x 10 days 20 13/01/20 AUGMENTIN 875-125 MG ORAL TABLET 895485 AMOXICILLIN-POT CLAVULANATE Inactive ZITHROMAX Z-REYNA 250 MG ORAL TABLET 2 today, then 1 daily for 4 d ays ZITHROMAX Z-REYNA 250 MG ORAL TABLET 219238 AZITHROMYCIN Inactive ZITHROMAX 250 MG ORAL TABLET 2 po today, then 1 po q days 2-5 20 14/03/21 ZITHROMAX 250 MG ORAL TABLET 974923 AZITHROMYCIN Greer ctive ZITHROMAX Z-REYNA 250 MG ORAL TABLET 2 today, then 1 daily for 4 d ays ZITHROMAX Z-REYNA 250 MG ORAL TABLET 505747 AZITHROMYCIN Inactive CEFDINIR 300 MG ORAL CAPSULE 1 po BID x 10 days 06/21 CEFDINIR 300 MG ORAL CAPSULE 064377 CEFDINIR Inactive ZITHROMAX 250 MG ORAL TABLET 2 po today, then 1 po q days 2-5 20 13/08/10 ZITHROMAX 250 MG ORAL TABLET 692678 AZITHROMYCIN [place] ctive LEVAQUIN 500 MG ORAL TABLET 1 tablet by mouth daily 20 13/09/24 LEVAQUIN 500 MG ORAL TABLET 285482 LEVOFLOXACIN Inactive SINGULAIR 10 MG ORAL TABLET 1 po qday for allergies 20 14/01/12 SINGULAIR 10 MG ORAL TABLET 266772 MONTELUKAST SODIUM Inactive AMOXICILLIN 500 MG ORAL CAPSULE 2 po BID x 10 days 201 09/29/08 AMOXICILLIN 500 MG ORAL CAPSULE 747613 AMOXICILLIN Inactive PREDNISONE 20 MG ORAL TABLET 2 tabs daily for 3 days, 1 tab daily for 3 days, 1/2 tab daily for 2 days PREDNISONE 20 MG ORAL T ABLET 704372 PREDNISONE Inactive ZITHROMAX Z-REYNA 250 MG ORAL TABLET 2 today, then 1 daily for 4 d ays ZITHROMAX Z-REYNA 250 MG ORAL TABLET 239136 AZITHROMYCIN Inactive PREDNISONE 20 MG ORAL TABLET 2 tabs daily for 3 days, 1 tab daily for 3 days, 1/2 tab daily for 2 days PREDNISONE 20 MG ORAL T ABLET 644637 PREDNISONE Inactive ZITHROMAX 250 MG ORAL TABLET 2 po today, then 1 po q days 2-5 20 14/09/04 ZITHROMAX 250 MG ORAL TABLET 110769 AZITHROMYCIN [place] [facility] AMOXICILLIN 500 MG ORAL CAPSULE 1 cap by mouth three times a day AMOXICILLIN 500 MG ORAL CAPSULE 422551 AMOXICILLIN Inactive TERBINAFINE HCL 250 MG ORAL TABLET 1 qDay for nail fungus 7 TERBINAFINE HCL 250 MG ORAL TABLET 283434 TERBINAFINE HCL Inact nael AUGMENTIN 875-125 MG ORAL TABLET 1 po BID x 10 days 16/03/22 AUGMENTIN 875-125 MG ORAL TABLET 228986 AMOXICILLIN-POT CLAVULANATE Inactive PREDNISONE 20 MG ORAL TABLET 2 po qd x 5 days PREDNISONE 20 MG ORAL TABLET [id number] PREDNISONE Inactive AZITHROMYCIN 250 MG ORAL TABLET 2 po qd x 1 day, then 1 po q d x 4 days AZITHROMYCIN 250 MG ORAL TABLET 230277 AZITHROMY GIOVANNI Inactive Vital Signs Date Name [...] - Chem istry sodium, serum 139 mmol/L 159-117 1868/03/19 potassium, serum 3.6 mmol/L 3.5-5.2 chloride, serum 100 mmol/L 98-107 carbon dioxide, venous blood 30.3 mmol/L 21.0-32 .0 blood glucose 101 mg/dL 65-110 calcium, serum 9.4 mg/dL 8.5-10.1 urea nitrogen, blood 10 mg/dL 7-18 creatinine, serum 0.96 mg/dL 0.60-1.30 sodium, serum 139 mmol/L 121-076 2270/10/12 potassium, serum 3.8 mmol/L 3.5-5.2 chloride, serum 102 mmol/L 98-107 carbon dioxide, venous blood 29.4 mmol/L 21.0-32 .0 blood glucose 103 mg/dL 65-95 calcium, serum 8.8 mg/dL 8.5-10.1 urea nitrogen, blood 10 mg/dL 7-18 creatinine, serum 0.97 mg/dL 0.60-1.30 Estimated Glomerular Filtration Rate (calc) 62 (?) mL/min/1.73m2 = OR > 60 mL/min Encounters Code Encounter Date Provider Facility CPT-69013 [id number] Vst-Est Level III 11:12:16 CDT Br tami Bess DO [facility] CPT-32763 Level 3 Est. Patient 11:34:49 CD REACTOR OPERATOR HEAD Perez Mora MD [facility] CPT-68270 Level 4 Est. Patient 09:51:32 CD REACTOR OPERATOR HEAD Carlton rich MD [facility] CPT-52743 Level 3 Est. Patient 10:26:00 CD REACTOR OPERATOR HEAD Elise stephenson APRN [facility] CPT-46900 Level 3 Est. Patient 13:35:41 CD REACTOR OPERATOR HEAD Carlton rich MD [facility] CPT-17865 Level 3 Est. Patient 10:03:52 CD REACTOR OPERATOR HEAD Carlton rich MD [facility] CPT-92378 Level 3 Est. Patient 12:17:50 CDT Hugo Restrepo MD [facility] CPT-91865 Level 3 Est. Patient 13:42:38 CDT Elise Are ll [facility] CPT-90541 Level 3 Est. Patient 13:23:51 CDT Diya cobian [facility] CPT-00570 Level 3 Est. Patient 14:22:19 CD REACTOR OPERATOR HEAD Diya cobian [facility] CPT-78528 Level 3 Est. Patient 10:11:46 CDT Carlton rich MD [facility] CPT-26208 Level 3 Est. Patient 17:29:43 CDT Elise Are ll [facility] CPT-39605 Level 3 Est. Patient 11:58:06 CDT Elise Are [facility] CPT-42209 Level 4 Est. Patient 14:36:51 CDT Carlton rich MD [facility] CPT-85419 Level 3 Est. Patient 18:16:00 CD REACTOR OPERATOR HEAD Blaine HERNANDEZ [facility] CPT-79229 Level 3 Est. Patient 09:45:49 CD REACTOR OPERATOR HEAD Carlton rich MD [facility] CPT-83747 Level 3 Est. Patient 13:19:20 CDT Carlton rich MD [facility] CPT-84587 Level 3 Est. Patient 13:06:43 CDT Ridge tam DO [facility] CPT-31365 Level 3 Est. Patient 10:03:07 CDT Perez Mora MD [facility] CPT-00932 Level 3 Est. Patient 19:50:35 CD REACTOR OPERATOR HEAD Carlton rich MD [facility]-84038 Level 4 Est. Patient 18:05:01 CD REACTOR OPERATOR HEAD Carlton rich MD [facility]-49190 Level 3 Est. Patient 10:45:55 CD REACTOR OPERATOR HEAD Hugo Restrepo MD [facility]-79715 Level 3 Est. Patient 14:12:49 CDT Griffin HERNANDEZ [facility]-26338 Level 3 Est. Patient 17:37:24 CDT Carlton rich MD [facility]-22369 Level 3 Est. Patient 16:51:54 CDT Carlton rich MD [facility]-96741 Level 3 Est. Patient 12:18:11 CDT Hugo Restrepo MD [facility]-72460 Level 3 Est. Patient 11:30:25 CDT Marcy crisostomo MD PhD [facility]-63659 Level 3 Est. Patient 12:00:47 CD REACTOR OPERATOR HEAD Carlton rich MD [facility]-38305 Level 3 Est. Patient 16:31:06 CD REACTOR OPERATOR HEAD Carlton rich MD [facility]-91802 Level 3 Est. Patient 16:23:24 CD REACTOR OPERATOR HEAD Ridge tam DO [facility]-17096 Level 3 Est. Patient 12:34:12 CDT Carlton rich MD [facility] CPT-22196 Level 2 Est. Patient 15:43:33 CDT Robi armstrong MD [facility]-86807 Level 4 Est. Patient 14:04:44 CDT Carlton rich MD [facility]-15654 Level 3 Est. Patient 05:47:59 CDT Ridge tam [facility]-52419 Level 3 Est. Patient 13:12:53 CD REACTOR OPERATOR HEAD Carlton rich MD [facility] CPT-46403 Level 3 Est. Patient 14:26:53 CDT uHgo Restrepo MD [facility] Procedures Code [...] CPT-J1100 Decadron 6mg (Dexamethasone) 14:32:13 CDT 2 CPT-12349 Hip bilat min 2V w AP pelvis 13:16:20 CDT CPT-50370 Pelvis only 13:07:33 CDT CPT-27172 Spec Collection and Handling Fee 11:25:12 C DT CPT-87812 Fluzone Quadrivalent Intramuscular Suspe nsion 0.5 ML 14:31:55 CDT CPT-07939 Abx/Therapy Injection 13:28:47 CD REACTOR OPERATOR HEAD CPT-J2930 Solu Medrol 125 mg (Methyl Prednisolone Sodium Succinate) 12:00:47 CD REACTOR OPERATOR HEAD CPT-36041 Venipuncture Draw Fee 11:33:31 CDT CPT-83566 EKG Trac and Interp 11:21:09 CDT CPT-13704 Chest 2V Frontal and Lat 11:21:09 CDT 12/15 CPT-27212 Venipuncture Draw Fee 08:02:34 CDT CPT-48685 Chest 2V Frontal and Lat 05:47:59 CDT 06/05
--- OUTSIDE RECORDS SUMMARY | 2019-10-08 09:28 | XMS REPORT | Clinical Summary ---
Author Author Caitlin, Juliana Martinez Organization [facility] Address Unknown Phone Unavailable Allergies, Adverse [...] po q d x 4 days AZITHROMYCIN [id number] No Longer Active Ridge Bess DO Active PREDNISONE 20 MG ORAL TABLET two tabs by mouth today, then one tab by mouth days two and three and four PREDNISONE 39751144365 Active Lyndsay Mora MD Active PREDNISONE 20 MG ORAL TABLET 2 po qd x 5 days P REDNISONE 45916554658 No Longer Active Perez Mora MD Active PROAIR HFA 108 (90 BASE) MCG/ACT INHALATION AEROSOL SO LUTION 2 puffs four times a day as needed ALBUTEROL SULFATE 10319746166 No Long er Active Becky FUENTES Active ASPIRIN 81 MG ORAL TABLET 1 po qd ASPIRIN 48203366663 Active Carlton Hu MD Active PREDNISONE 20 MG ORAL TABLET 1 tab twice daily for 3 d ay, then one daily for three days PREDNISONE 62837860156 No Longer Active Carlton Hu MD Active AUGMENTIN 875-125 MG ORAL TABLET 1 po BID x 10 days 20 16/03/22 AMOXICILLIN-POT CLAVULANATE 97108648082 No Longer Active Elise Garcia APRN Active TERBINAFINE HCL 250 MG ORAL TABLET 1 qDay for nail fungus 7 TERBINAFINE HCL 27888442068 No Longer Active Carlton Hu MD A ctive TUSSIONEX PENNKINETIC ER 10-8 MG/5ML ORAL SUSPENSION E XTENDED RELEASE 5ml po q12hr PRN Cough HYDROCOD POLST-CHLORPHEN POLST 66428001080 Active Carlton Hu MD Active AMOXICILLIN 500 MG ORAL CAPSULE 1 cap by mouth three times a day AMOXICILLIN 76654408150 No Longer Active Carlton Hu MD Active ELMIRON 100 MG ORAL CAPSULE 2 tablets in the am and 1 tablet at hs PENTOSAN POLYSULFATE SODIUM 37230701532 No Longer Active Robert Hu MD Active MUCINEX D 60-600 MG ORAL TABLET EXTENDED RELEASE 12 HOUR 1 t ab po q am PSEUDOEPHEDRINE-GUAIFENESIN 80711547572 No Longer Act nael Carlton Hu MD Active MUCINEX DM MAXIMUM STRENGTH 60-1200 MG ORAL TABLET EXT ENDED RELEASE 12 HOUR 1 tab po q am DEXTROMETHORPHAN-GUAIFENESIN 77295743497 No Longer Active Carlton Hu MD Active TUSSIONEX PENNKINETIC ER 10-8 MG/5ML ORAL SUSPENSION E XTENDED RELEASE 5ml po q12hr PRN Cough HYDROCOD POLST-CHLORPHEN POLST 5 1869290351 No Longer Active Carlton Hu MD Active POTASSIUM CHLORIDE ER 20 MEQ ORAL TABLET EXTENDED RELE ASE Take 1 by mouth 4 times daily for 7 days POTASSIUM CHLORIDE 23867901438 No Longer Active Carlton Hu MD Active ZITHROMAX 250 MG ORAL TABLET 2 po today, then 1 po q days 2-5 14/09/04 AZITHROMYCIN 83670950600 No Longer Active Elise Garcia APRN Active TUSSIONEX PENNKINETIC ER 10-8 MG/5ML ORAL SUSPENSION E XTENDED RELEASE 5 ml twice a day as needed for cough HYDROCOD POLST-CHLORPH EN POLST 86504039940 No Longer Active Elise Garcia APRN Active MONTELUKAST SODIUM 10 MG ORAL TABLET 1 po daily for Allergy MONTELUKAST SODIUM 31531786417 Active Carlton Hu MD Ac tive TUSSIONEX PENNKINETIC ER 10-8 MG/5ML ORAL SUSPENSION E XTENDED RELEASE 5ml po q12hr PRN Cough HYDROCOD POLST-CHLORPHEN POLST 5 4468513025 No Longer Active Hugo Restrepo MD Active GABAPENTIN 100 MG ORAL CAPSULE 1 po BID for fibromyalgia GABAPENTIN 18480310341 Active Carlton Hu MD Active LYRICA 100 MG ORAL CAPSULE Take 1 tab po BID for fibromyalgia 20 11/08/21 PREGABALIN 05052798060 No Longer Active Elise Garcia [employer] A ctive PREDNISONE 20 MG ORAL TABLET 2 tabs daily for 3 days, 1 tab daily for 3 days, 1/2 tab daily for 2 days PREDNISONE 13647921210 No Longer Active Jillina Frazell [employer] Active TUSSIONEX PENNKINETIC ER 10-8 MG/5ML ORAL SUSPENSION E XTENDED RELEASE 5 mL PO q 12 hrs PRN cough HYDROCOD POLST-CHLORPHEN POLST 820914 34355 No Longer Active Jillina Frazell [employer] Active FLUTICASONE PROPIONATE 50 MCG/ACT NASAL SUSPENSION 2 s prays each nostril daily until bottle is empty FLUTICASONE PROPIONATE 570628687 99 No Longer Active Jillina Frazell [employer] Active ASMANEX 60 METERED DOSES 220 MCG/INH INHALATION AEROSO L POWDER BREATH ACTIVATED 1 puff bid with rinse after MOMETASONE FUROATE 4512623 4102 No Longer Active Jillina Frazell [employer] Active ZITHROMAX Z-REYNA 250 MG ORAL TABLET 2 today, then 1 daily for 4 d ays AZITHROMYCIN 80297867525 No Longer Active Elise Garcia [employer] Active TUSSIONEX PENNKINETIC ER 10-8 MG/5ML ORAL SUSPENSION E XTENDED RELEASE 5ml po q12hr PRN Cough HYDROCOD POLST-CHLORPHEN POLST 5 3714276227 No Longer Active Elise Garcia [employer] Active PREDNISONE 20 MG ORAL TABLET 2 tabs daily for 3 days, 1 tab daily for 3 days, 1/2 tab daily for 2 days PREDNISONE 66010319134 No Longer Active Jillina Frazell [employer] Active AMOXICILLIN 500 MG ORAL CAPSULE 2 po BID x 10 days 201 09/29/08 AMOXICILLIN 48236980323 No Longer Active Jillina Frazell [employer] Act nael SINGULAIR 10 MG ORAL TABLET 1 po qday for allergies 20 14/01/12 MONTELUKAST SODIUM 56589193895 No Longer Active Carlton Hu MD Active LEVAQUIN 500 MG ORAL TABLET 1 tablet by mouth daily 20 13/09/24 LEVOFLOXACIN 68326959718 No Longer Active Carlton Hu MD Acti ve FLUTICASONE PROPIONATE 50 MCG/ACT NASAL SUSPENSION 2 s prays each nostril daily for 2 weeks, then 1 spray each nostril daily. FLUTICASONE PROPIONATE 74581917955 Active Elise Areseema KHAN Active ZITHROMAX 250 MG ORAL TABLET 2 po today, then 1 po q days 2-5 20 13/08/10 AZITHROMYCIN 31246628980 No Longer Active Elise Garcia APRN Active XANAX 0.5 MG ORAL TABLET one tablet by mouth daily prn anxiety 2015 ALPRAZOLAM 72051643287 Active ALFREDO Holly Active CYMBALTA 30 MG ORAL CAPSULE DELAYED RELEASE PARTICLES 1 cap by mouth daily for depression DULOXETINE HCL 60817491460 Active ALFREDO Holly Active CEFDINIR 300 MG ORAL CAPSULE 1 po BID x 10 days CEFDINIR 85119770010 No Longer Active Carlton Hu MD Active ZOCOR 40 MG ORAL TABLET 1 tab by mouth daily SI MVASTATIN 44735765222 No Longer Active Carlton Hu MD Active CYCLOBENZAPRINE HCL 10 MG ORAL TABLET 1 tablet by mouth BID prn had pain CYCLOBENZAPRINE HCL 52891660461 No Longer Active Jayden Hu MD Active LEVOFLOXACIN 500 MG ORAL TABLET 1 tab PO daily x 10 days LEVOFLOXACIN 94062965086 No Longer Active Carlton Hu MD Acti ve PREDNISONE 20 MG ORAL TABLET 3 tab PO qd x 2d, 2 tab P O qd x 2d, 1 tab PO qd x 2d, 1/2 tab PO qd x 2d PREDNISONE 06597245087 No Lo nger Active Carlton Hu MD Active FLUTICASONE PROPIONATE 50 MCG/ACT NASAL SUSPENSION 1 t o 2 sprays each nostril daily FLUTICASONE PROPIONATE 16024528825 No Longer Ac tive Blaine HERNANDEZ Active CHERATUSSIN AC 100-10 MG/5ML ORAL SYRUP 1 tsp by mouth every 4 hours as needed for cough GUAIFENESIN-CODEINE 45691487261 No Longe r Active Blaine HERNANDEZ Active PROMETHAZINE-CODEINE 6.25-10 MG/5ML ORAL SYRUP 1 tsp b y mouth every 6 hours if needed for cough PROMETHAZINE-CODEINE 66016585262 No Longer Active Blaine HERNANDEZ Active CHERATUSSIN AC 100-10 MG/5ML ORAL SYRUP 1 tsp by mouth every 4 hours as needed for cough GUAIFENESIN-CODEINE 50648420086 No Longe r Active Blaine HERNANDEZ Active ZITHROMAX Z-REYNA 250 MG ORAL TABLET 2 today, then 1 daily for 4 d ays AZITHROMYCIN 22283029082 No Longer Active Columba Raida Act nael ZITHROMAX 250 MG ORAL TABLET 2 po today, then 1 po q days 2-5 20 14/03/21 AZITHROMYCIN 92550968414 No Longer Active Carlton Hu MD Active ZITHROMAX Z-REYNA 250 MG ORAL TABLET 2 today, then 1 daily for 4 d ays AZITHROMYCIN 00412198830 No Longer Active Columba Raida Act nael AUGMENTIN 875-125 MG ORAL TABLET 1 po BID x 10 days 13/01/20 AMOXICILLIN-POT CLAVULANATE 46473289321 No Longer Active Diya De Guzman APRN Active ZITHROMAX 250 MG ORAL TABLET 2 po today, then 1 po q days 2-5 20 12/08/14 AZITHROMYCIN 26305239962 No Longer Active Carlton Hu MD Active TRAMADOL HCL 50 MG ORAL TABLET 1 po tid with ES Tylenol TRAMADOL HCL 73469190121 Active ALFREDO Holly Active PREMARIN 0.625 MG ORAL TABLET TAKE 1 TAB BY MOUTH DAILY ESTROGENS CONJUGATED 99799632475 No Longer Active Ridge Bess DO A ctive CYMBALTA 30 MG ORAL CAPSULE DELAYED RELEASE PARTICLES 1 cap by mouth daily DULOXETINE HCL 97274874798 No Longer Active Ridge tam DO Active AMOXICILLIN 500 MG ORAL CAPSULE 1 tab by mouth 3 times daily x 10 days AMOXICILLIN 89643745476 No Longer Active Carlton bustamante MD Active AMOXICILLIN 500 MG ORAL CAPSULE 1 tab by mouth 3 times daily x 10 days AMOXICILLIN 17921029971 No Longer Active Carlton bustamante MD Active PROMETHAZINE-CODEINE 6.25-10 MG/5ML ORAL SYRUP 1 tsp b y mouth every 8 hours prn cough PROMETHAZINE-CODEINE 31293239887 No Longer Acti ve Carlton Hu MD Active MEDROL 4 MG ORAL TABLET THERAPY PACK 6 pills x 1 day, then 5 pills x 1 day then 4 pills x 1 day, then 3 pills x 1 day, then 2 pills x 1 day, then 1 pill x 1 day, then stop METHYLPREDNISOLONE 76274361966 No Long er Active Perez Mora MD Active AZITHROMYCIN 250 MG ORAL TABLET 2 po qd x 1 day, then 1 po q d x 4 days AZITHROMYCIN 06101267810 No Longer Active Perez Ambriz MD Active SYMBICORT 160-4.5 MCG/ACT INHALATION AEROSOL 2 puffs bid wit h rinse after BUDESONIDE-FORMOTEROL FUMARATE 00219753719 N o Longer Active Perez Mora MD Active LYRICA 75 MG ORAL CAPSULE TAKE 1 CAPSULE BY MOUTH TWICE DAILY PREGABALIN 57551612138 No Longer Active Carlton Hu MD Acti ve TOPAMAX 25 MG ORAL TABLET 1 qHS x 1 week, then 1 BID x 1 week, then 1 qAM and 2 qHS x 1 week, then 2 BID (migraine prevention) T OPIRAMATE 13173283985 No Longer Active Jerica FUENTES Active TOPAMAX 50 MG ORAL TABLET take 1 tab po BID for migraines. 07/02 TOPIRAMATE 58689885397 No Longer Active Jerica FUENTES Active TOPAMAX 100 MG ORAL TABLET Take 1 tablet po bid TO PIRAMATE 81572148737 Active ALFREDO Holly Active TRIAMCINOLONE ACETONIDE 0.1 % EXTERNAL CREAM apply three roger es daily prn rash TRIAMCINOLONE ACETONIDE 99768889647 No Longer Active Carlton Hu MD Active PAXIL 40 MG ORAL TABLET take 1 tab po qday for depression 0 PAROXETINE HCL 77460032923 Active ALFREDO Holly Active CHERATUSSIN AC 100-10 MG/5ML ORAL SYRUP 5ml po q6hr PRN Cough 20 13/04/14 GUAIFENESIN-CODEINE 58693211804 No Longer Active Carlton Hu MD Active MEDROL 4 MG ORAL TABLET THERAPY PACK 6 tabs on day 1, 5 tabs on day 2, 4 tabs on day 3, 3 tabs on day 4, 2 tabs on day 5, 1 tab on day 6 2013 METHYLPREDNISOLONE 79629497090 No Longer Active Perez Mora MD Active AZITHROMYCIN 250 MG ORAL TABLET 2 po qd x 1 day, then 1 po q d x 4 days AZITHROMYCIN 79793049583 No Longer Active Perez Ambriz MD Active PROPRANOLOL HCL 60 MG ORAL TABLET 1 PO Q D PROPRANOLOL HCL 78586841569 No Longer Active Perez Mora MD Activ e CHERATUSSIN AC 100-10 MG/5ML ORAL SYRUP take one tsp po Q 6h ours prn cough GUAIFENESIN-CODEINE 28463190905 No Longer Active Zia Mora MD Active AUGMENTIN 875-125 MG ORAL TABLET 1 tab by mouth twice daily with food AMOXICILLIN-POT CLAVULANATE 34493149990 No Longer Act nael Mora MD Active CHERATUSSIN AC 100-10 MG/5ML ORAL SYRUP 1 tsp by mouth every 4 hours as needed for cough GUAIFENESIN-CODEINE 36532946484 No Longe r Active Hugo Restrepo MD Active ACETAMINOPHEN-CODEINE #3 300-30 MG ORAL TABLET 1 PO Q 4-6 HRS [facility] N PAIN ACETAMINOPHEN-CODEINE 77413742372 No Longer Active Hugo Restrepo MD Active LEVAQUIN 500 MG ORAL TABLET take one po QD LEVO FLOXACIN 49989191464 No Longer Active Griffin HERNANDEZ Active PREDNISONE 20 MG ORAL TABLET Take 3 tabs daily for 3 d ays, 2 tabs daily for 3 days, 1 tab daily for 3 days, 1/2 tab daily for 3 days 11/07 PREDNISONE 94229220436 No Longer Active Carlton Hu MD Acti ve AVELOX 400 MG ORAL TABLET 1 tab by mouth daily MOXIFLOXACIN HCL 43413481180 No Longer Active Carlton Hu MD Active CHERATUSSIN AC 100-10 MG/5ML ORAL SYRUP 1 tsp by mouth every 4 hours as needed for cough GUAIFENESIN-CODEINE 31960721765 No Longe r Active Hugo Restrepo MD Active AVELOX 400 MG ORAL TABLET 1 tab by mouth daily MOXIFLOXACIN HCL 05539913897 No Longer Active Marcy De La Rosa MD PhD Active TERBINAFINE HCL 250 MG ORAL TABLET 1 qDay T ERBINAFINE HCL 18250436101 No Longer Active Marcy De La Rosa MD PhD Active CHERATUSSIN AC 100-10 MG/5ML ORAL SYRUP 1 tsp by mouth every 4 hours as needed for cough GUAIFENESIN-CODEINE 12157092859 No Longe r Active Marcy De La Rosa MD PhD Active AVELOX 400 MG ORAL TABLET 1 tab by mouth daily MOXIFLOXACIN HCL 89004115863 No Longer Active Marcy C Madril MD PhD Active HYDROCODONE-ACETAMINOPHEN 5-325 MG ORAL TABLET 1 po q 6hr PRN co ugh HYDROCODONE-ACETAMINOPHEN 85771425146 No Longer Active Marcy De La Rosa MD PhD Active PREDNISONE 20 MG ORAL TABLET 2 tabs daily for 3 days, 1 tab daily for 3 days, 1/2 tab daily for 2 days PREDNISONE 64193722611 No Longer Active Carlton Hu MD Active CEFDINIR 300 MG ORAL CAPSULE by mouth twice a day 2011 CEFDINIR 43679524944 No Longer Active Carlton Hu MD Acti ve HYDROCHLOROTHIAZIDE 25 MG ORAL TABLET 1 TAB PO DAILY HYDROCHLOROTHIAZIDE 31167113731 Active ALFREDO Holly Ac tive ACETAMINOPHEN-CODEINE #3 300-30 MG ORAL TABLET 1 tablet po q 4-6 hrs prn pain ACETAMINOPHEN-CODEINE 69210734208 No Longer Active Ridge Bess DO Active ZITHROMAX 250 MG ORAL TABLET 2 po today, then 1 po q days 2-5 20 03/07/07 AZITHROMYCIN 82751863365 No Longer Active Carlton Hu MD Active CHERATUSSIN AC 100-10 MG/5ML ORAL SYRUP take 1 tsp po q4-6 h ours prn cough GUAIFENESIN-CODEINE 81941982736 No Longer Active Jayden Hu MD Active ACETAMINOPHEN-CODEINE #3 300-30 MG ORAL TABLET 1 PO Q 4-6 HR PRN PAIN ACETAMINOPHEN-CODEINE 02622636849 No Longer Active Da vid Lyndsay Hu MD Active LORTAB 7.5-500 MG/15ML ORAL ELIXIR 7.5 ml po q 4 hour prn cough HYDROCODONE-ACETAMINOPHEN 38324588686 No Longer Active Carlton Hu MD Active PREDNISONE 20 MG ORAL TABLET 1 po bid 3 days, then 1 po q day 3 days PREDNISONE 39331361215 No Longer Active Carlton Hu MD Active CEFDINIR 300 MG ORAL CAPSULE by mouth twice a day 2011 CEFDINIR 65210941045 No Longer Active Carlton Hu MD Acti ve CEFDINIR 300 MG ORAL CAPSULE by mouth twice a day 2010 CEFDINIR 40336919920 No Longer Active Carlton Hu MD Acti ve CEFDINIR 300 MG ORAL CAPSULE by mouth twice a day 2010 CEFDINIR 21619028748 No Longer Active Carlton Hu MD Acti ve TESSALON PERLES 100 MG ORAL CAPSULE 1 tablet by mouth 3 times daily as needed for cough BENZONATATE 65699573856 No Longer Active Carlton Hu MD Active CEFDINIR 300 MG ORAL CAPSULE by mouth twice a day 2010 CEFDINIR 55703213390 No Longer Active Carlton Hu MD Acti ve ZITHROMAX Z-REYNA 250 MG ORAL TABLET 2 today, then 1 daily for 4 d ays AZITHROMYCIN 58108543004 No Longer Active Hugo Restrepo MD Active TESSALON PERLES 100 MG ORAL CAPSULE 1 tablet by mouth 3 times daily as needed for cough TESSALON PERLES 100 MG ORAL CAPSULE 08068 7 BENZONATATE Inactive PREDNISONE 20 MG ORAL TABLET 1 po bid 3 days, then 1 po q day 3 days PREDNISONE 20 MG ORAL TABLET 649164 PREDNISONE Greer ctive LORTAB 7.5-500 MG/15ML ORAL [...] cough CHERATUSSIN AC 100-10 MG/5ML ORAL SYRUP 003749 GUAIFENESIN-CODEINE Inactive ACETAMINOPHEN-CODEINE #3 300-30 MG ORAL TABLET 1 tablet po q 4-6 hrs prn pain ACETAMINOPHEN-CODEINE #3 300-30 MG ORAL TABLET ACETAMINOPHEN-CODEINE Inactive HYDROCODONE-ACETAMINOPHEN 5-325 MG ORAL TABLET 1 po q 6hr PRN co ugh HYDROCODONE-ACETAMINOPHEN 5-325 MG ORAL TABLET 976086 HYDROCODONE-ACETAMINOPHEN Inactive AVELOX 400 MG ORAL TABLET 1 tab by mouth daily AVELOX 400 MG ORAL TABLET 820016 MOXIFLOXACIN HCL Inactive CHERATUSSIN AC 100-10 MG/5ML ORAL SYRUP 1 tsp by mouth every 4 hours as needed for cough CHERATUSSIN AC 100-10 MG/5ML ORAL SYRUP 9 88030 GUAIFENESIN-CODEINE Inactive TERBINAFINE HCL 250 MG ORAL TABLET 1 qDay 07/08 TERBINAFINE HCL 250 MG ORAL TABLET 594765 TERBINAFINE HCL Inactive CHERATUSSIN AC 100-10 MG/5ML ORAL SYRUP 1 tsp by mouth every 4 hours as needed for cough CHERATUSSIN AC 100-10 MG/5ML ORAL SYRUP 9 23756 GUAIFENESIN-CODEINE Inactive ACETAMINOPHEN-CODEINE #3 300-30 MG ORAL TABLET 1 PO Q 4-6 HRS [facility] N PAIN ACETAMINOPHEN-CODEINE #3 300-30 MG ORAL TABLET ACETAMINOPHEN-CODEINE Inactive CHERATUSSIN AC 100-10 MG/5ML ORAL SYRUP 1 tsp by mouth every 4 hours as needed for cough CHERATUSSIN AC 100-10 MG/5ML ORAL SYRUP 9 57213 GUAIFENESIN-CODEINE Inactive AUGMENTIN 875-125 MG ORAL TABLET 1 tab by mouth twice daily with food AUGMENTIN 875-125 MG ORAL TABLET 409875 AMOXICIL MADELINE-POT CLAVULANATE Inactive CHERATUSSIN AC 100-10 MG/5ML ORAL SYRUP take one tsp po Q 6h ours prn cough CHERATUSSIN AC 100-10 MG/5ML ORAL SYRUP 201301 GUAIFENESIN-CODEINE Inactive PROPRANOLOL HCL 60 MG ORAL TABLET 1 PO Q D PROPRANOLOL HCL 60 MG ORAL TABLET 736583 PROPRANOLOL HCL Inactive TOPAMAX 50 MG ORAL TABLET take 1 tab po BID for migraines. 07/02 TOPAMAX 50 MG ORAL TABLET 460287 TOPIRAMATE Inacti ve TOPAMAX 25 MG ORAL TABLET 1 qHS x 1 week, then 1 BID x 1 week, then 1 qAM and 2 qHS x 1 week, then 2 BID (migraine prevention) TOPAMAX 25 MG ORAL TABLET 979066 TOPIRAMATE Inactive LYRICA 75 MG ORAL CAPSULE TAKE 1 CAPSULE BY MOUTH TWICE DAILY LYRICA 75 MG ORAL CAPSULE PREGABALIN Inactive SYMBICORT 160-4.5 MCG/ACT INHALATION AEROSOL 2 puffs bid wit h rinse after SYMBICORT 160-4.5 MCG/ACT INHALATION AEROSOL BUDESONIDE- FORMOTEROL FUMARATE Inactive PROMETHAZINE-CODEINE 6.25-10 MG/5ML ORAL SYRUP 1 tsp b y mouth every 8 hours prn cough PROMETHAZINE-CODEINE 6.25-10 MG/ 5ML ORAL SYRUP 712755 PROMETHAZINE-CODEINE Inactive CYMBALTA 30 MG ORAL CAPSULE DELAYED RELEASE PARTICLES 1 cap by mouth daily CYMBALTA 30 MG ORAL CAPSULE DELAYED RELE ASE PARTICLES 698378 DULOXETINE HCL Inactive PREMARIN 0.625 MG ORAL TABLET TAKE 1 TAB BY MOUTH DAILY PREMARIN 0.625 MG ORAL TABLET ESTROGENS CONJUGATED Inactive CHERATUSSIN AC 100-10 MG/5ML ORAL SYRUP 1 tsp by mouth every 4 hours as needed for cough CHERATUSSIN AC 100-10 MG/5ML ORAL SYRUP 9 18914 GUAIFENESIN-CODEINE Inactive PROMETHAZINE-CODEINE 6.25-10 MG/5ML ORAL SYRUP 1 tsp b y mouth every 6 hours if needed for cough PROMETHAZINE-CODEINE 6.25-10 MG/5ML ORAL SYRUP 648166 PROMETHAZINE-CODEINE Inactive CHERATUSSIN AC 100-10 MG/5ML ORAL SYRUP 1 tsp by mouth every 4 hours as needed for cough CHERATUSSIN AC 100-10 MG/5ML ORAL SYRUP 9 90700 GUAIFENESIN-CODEINE Inactive FLUTICASONE PROPIONATE 50 MCG/ACT NASAL SUSPENSION 1 t o 2 sprays each nostril daily FLUTICASONE PROPIONATE 50 MCG/AC T NASAL SUSPENSION 0560863 FLUTICASONE PROPIONATE Inactive PREDNISONE 20 MG ORAL TABLET 3 tab PO qd x 2d, 2 tab P O qd x 2d, 1 tab PO qd x 2d, 1/2 tab PO qd x 2d PREDNISONE 20 MG ORAL TAB LET 092723 PREDNISONE Inactive LEVOFLOXACIN 500 MG ORAL TABLET 1 tab PO daily x 10 days LEVOFLOXACIN 500 MG ORAL TABLET 585614 LEVOFLOXACIN Inactive CYCLOBENZAPRINE HCL 10 MG ORAL TABLET 1 tablet by mouth BID prn had pain CYCLOBENZAPRINE HCL 10 MG ORAL TABLET 167903 CYCLOBENZAPRINE HCL Inactive ZOCOR 40 MG ORAL TABLET 1 tab by mouth daily 4 ZOCOR 40 MG ORAL TABLET 844828 SIMVASTATIN Inactive TUSSIONEX PENNKINETIC ER 10-8 MG/5ML [...] FLUTICASONE PROPIO EFE 50 MCG/ACT NASAL SUSPENSION 6659853 FLUTICASONE PROPIONATE Inactive TUSSIONEX PENNKINETIC ER 10-8 [...] three days PREDNISONE 20 MG ORAL TABLET 194771 PREDNIS ONE Inactive PROAIR HFA 108 (90 BASE) MCG/ACT INHALATION AEROSOL SO LUTION 2 puffs four times a day as needed PROAIR HFA 108 (90 B ASE) MCG/ACT INHALATION AEROSOL SOLUTION ALBUTEROL SULFATE Inactive ZITHROMAX Z-REYNA 250 MG ORAL TABLET 2 today, then 1 daily for 4 d ays ZITHROMAX Z-REYNA 250 MG ORAL TABLET 402449 AZITHROMYCIN Inactive CEFDINIR 300 MG ORAL CAPSULE by mouth twice a day 2010 CEFDINIR 300 MG ORAL CAPSULE 332378 CEFDINIR Inactive CEFDINIR 300 MG ORAL CAPSULE by mouth twice a day 2010 CEFDINIR 300 MG ORAL CAPSULE 344528 CEFDINIR Inactive CEFDINIR 300 MG ORAL CAPSULE by mouth twice a day 2010 CEFDINIR 300 MG ORAL CAPSULE 007069 CEFDINIR Inactive CEFDINIR 300 MG ORAL CAPSULE by mouth twice a day 2011 CEFDINIR 300 MG ORAL CAPSULE 650496 CEFDINIR Inactive ZITHROMAX 250 MG ORAL TABLET 2 po today, then 1 po q days 2-5 20 03/07/07 ZITHROMAX 250 MG ORAL TABLET 446235 AZITHROMYCIN Greer ctive CEFDINIR 300 MG ORAL CAPSULE by mouth twice a day 2011 CEFDINIR 300 MG ORAL CAPSULE 790016 CEFDINIR Inactive PREDNISONE 20 MG ORAL TABLET 2 tabs daily for 3 days, 1 tab daily for 3 days, 1/2 tab daily for 2 days PREDNISONE 20 MG ORAL T ABLET 119602 PREDNISONE Inactive AVELOX 400 MG ORAL TABLET 1 tab by mouth daily AVELOX 400 MG ORAL TABLET 406877 MOXIFLOXACIN HCL Inactive AVELOX 400 MG ORAL TABLET 1 tab by mouth daily AVELOX 400 MG ORAL TABLET 893249 MOXIFLOXACIN HCL Inactive PREDNISONE 20 MG ORAL TABLET Take 3 tabs daily for 3 d ays, 2 tabs daily for 3 days, 1 tab daily for 3 days, 1/2 tab daily for 3 days 11/07 PREDNISONE 20 MG ORAL TABLET 107613 PREDNISONE Inactive LEVAQUIN 500 MG ORAL TABLET take one po QD LEVAQUIN 500 MG ORAL TABLET 658574 LEVOFLOXACIN Inactive AZITHROMYCIN 250 MG ORAL TABLET 2 po qd x 1 day, then 1 po q d x 4 days AZITHROMYCIN 250 MG ORAL TABLET 959659 AZITHROMY GIOVANNI Inactive MEDROL 4 MG ORAL TABLET THERAPY PACK 6 tabs on day 1, 5 tabs on day 2, 4 tabs on day 3, 3 tabs on day 4, 2 tabs on day 5, 1 tab on day 6 2013 MEDROL 4 MG ORAL TABLET THERAPY PACK 917030 METHYLPREDNISOLONE [place] ctive CHERATUSSIN AC 100-10 MG/5ML ORAL SYRUP 5ml po q6hr PRN Cough 20 13/04/14 CHERATUSSIN AC 100-10 MG/5ML ORAL SYRUP 685265 GUAIFENE SIN-CODEINE Inactive TRIAMCINOLONE ACETONIDE 0.1 % EXTERNAL CREAM apply three roger es daily prn rash TRIAMCINOLONE ACETONIDE 0.1 % EXTERNAL CREAM 101 4314 TRIAMCINOLONE ACETONIDE Inactive AZITHROMYCIN 250 MG ORAL TABLET 2 po qd x 1 day, then 1 po q d x 4 days AZITHROMYCIN 250 MG ORAL TABLET 637850 AZITHROMY GIOVANNI Inactive MEDROL 4 MG ORAL TABLET THERAPY PACK 6 pills x 1 day, then 5 pills x 1 day then 4 pills x 1 day, then 3 pills x 1 day, then 2 pills x 1 day, then 1 pill x 1 day, then stop MEDROL 4 MG ORAL TABLET THERAPY PACK 840239 METHYLPREDNISOLONE Inactive AMOXICILLIN 500 MG ORAL CAPSULE 1 tab by mouth 3 times daily x 10 days AMOXICILLIN 500 MG ORAL CAPSULE 420135 AMOXICILL IN Inactive AMOXICILLIN 500 MG ORAL CAPSULE 1 tab by mouth 3 times daily x 10 days AMOXICILLIN 500 MG ORAL CAPSULE 174769 AMOXICILL IN Inactive ZITHROMAX 250 MG ORAL TABLET 2 po today, then 1 po q days 2-5 20 12/08/14 ZITHROMAX 250 MG ORAL TABLET 935420 AZITHROMYCIN Greer ctive AUGMENTIN 875-125 MG ORAL TABLET 1 po BID x 10 days 20 13/01/20 AUGMENTIN 875-125 MG ORAL TABLET 140556 AMOXICILLIN-POT CLAVULANATE Inactive ZITHROMAX Z-REYNA 250 MG ORAL TABLET 2 today, then 1 daily for 4 d ays ZITHROMAX Z-REYNA 250 MG ORAL TABLET 122649 AZITHROMYCIN Inactive ZITHROMAX 250 MG ORAL TABLET 2 po today, then 1 po q days 2-5 20 14/03/21 ZITHROMAX 250 MG ORAL TABLET 004010 AZITHROMYCIN Greer ctive ZITHROMAX Z-REYNA 250 MG ORAL TABLET 2 today, then 1 daily for 4 d ays ZITHROMAX Z-REYNA 250 MG ORAL TABLET 987062 AZITHROMYCIN Inactive CEFDINIR 300 MG ORAL CAPSULE 1 po BID x 10 days 06/21 CEFDINIR 300 MG ORAL CAPSULE 963345 CEFDINIR Inactive ZITHROMAX 250 MG ORAL TABLET 2 po today, then 1 po q days 2-5 20 13/08/10 ZITHROMAX 250 MG ORAL TABLET 600617 AZITHROMYCIN [place] ctive LEVAQUIN 500 MG ORAL TABLET 1 tablet by mouth daily 20 13/09/24 LEVAQUIN 500 MG ORAL TABLET 615322 LEVOFLOXACIN Inactive SINGULAIR 10 MG ORAL TABLET 1 po qday for allergies 20 14/01/12 SINGULAIR 10 MG ORAL TABLET 698650 MONTELUKAST SODIUM Inactive AMOXICILLIN 500 MG ORAL CAPSULE 2 po BID x 10 days 201 09/29/08 AMOXICILLIN 500 MG ORAL CAPSULE 062285 AMOXICILLIN Inactive PREDNISONE 20 MG ORAL TABLET 2 tabs daily for 3 days, 1 tab daily for 3 days, 1/2 tab daily for 2 days PREDNISONE 20 MG ORAL T ABLET 631305 PREDNISONE Inactive ZITHROMAX Z-REYNA 250 MG ORAL TABLET 2 today, then 1 daily for 4 d ays ZITHROMAX Z-REYNA 250 MG ORAL TABLET 143887 AZITHROMYCIN Inactive PREDNISONE 20 MG ORAL TABLET 2 tabs daily for 3 days, 1 tab daily for 3 days, 1/2 tab daily for 2 days PREDNISONE 20 MG ORAL T ABLET 171561 PREDNISONE Inactive ZITHROMAX 250 MG ORAL TABLET 2 po today, then 1 po q days 2-5 20 14/09/04 ZITHROMAX 250 MG ORAL TABLET 041946 AZITHROMYCIN [facility] AMOXICILLIN 500 MG ORAL CAPSULE 1 cap by mouth three times a day AMOXICILLIN 500 MG ORAL CAPSULE 454770 AMOXICILLIN Inactive TERBINAFINE HCL 250 MG ORAL TABLET 1 qDay for nail fungus 7 TERBINAFINE HCL 250 MG ORAL TABLET 034086 TERBINAFINE HCL Inact nael AUGMENTIN 875-125 MG ORAL TABLET 1 po BID x 10 days 16/03/22 AUGMENTIN 875-125 MG ORAL TABLET 889765 AMOXICILLIN-POT CLAVULANATE Inactive PREDNISONE 20 MG ORAL TABLET 2 po qd x 5 days PREDNISONE 20 MG ORAL TABLET 235612 PREDNISONE Inactive AZITHROMYCIN 250 MG ORAL TABLET 2 po qd x 1 day, then 1 po q d x 4 days AZITHROMYCIN 250 MG ORAL TABLET 359420 AZITHROMY GIOVANNI Inactive Vital Signs Date Name [...] - Chem istry sodium, serum 139 mmol/L 115-559 5179/03/19 potassium, serum 3.6 mmol/L 3.5-5.2 chloride, serum 100 mmol/L 98-107 carbon dioxide, venous blood 30.3 mmol/L 21.0-32 .0 blood glucose 101 mg/dL 65-110 calcium, serum 9.4 mg/dL 8.5-10.1 urea nitrogen, blood 10 mg/dL 7-18 creatinine, serum 0.96 mg/dL 0.60-1.30 sodium, serum 139 mmol/L 844-292 9338/10/12 potassium, serum 3.8 mmol/L 3.5-5.2 chloride, serum 102 mmol/L 98-107 carbon dioxide, venous blood 29.4 mmol/L 21.0-32 .0 blood glucose 103 mg/dL 65-95 calcium, serum 8.8 mg/dL 8.5-10.1 urea nitrogen, blood 10 mg/dL 7-18 creatinine, serum 0.97 mg/dL 0.60-1.30 Estimated Glomerular Filtration Rate (calc) 62 (?) mL/min/1.73m2 = OR > 60 mL/min Encounters Code Encounter Date Provider Facility CPT-02697 [id number] Vst-Est Level III 11:12:16 CDT Br tami Bess DO [facility] CPT-41825 Level 3 Est. Patient 11:34:49 SAP CONSULTANT Perez Mora MD [facility] CPT-70248 Level 4 Est. Patient 09:51:32 SAP CONSULTANT Carlton rich MD [facility] CPT-16158 Level 3 Est. Patient 10:26:00 SAP CONSULTANT Elise stephenson APRN [facility] CPT-17072 Level 3 Est. Patient 13:35:41 SAP CONSULTANT Carlton rich MD [facility] CPT-14977 Level 3 Est. Patient 10:03:52 SAP CONSULTANT Carlton rich MD [facility] CPT-24714 Level 3 Est. Patient 12:17:50 CDT Hugo Restrepo MD [facility] CPT-89288 Level 3 Est. Patient 13:42:38 CDT Elise Are ll [facility] CPT-15547 Level 3 Est. Patient 13:23:51 CDT Diya cobian [facility] CPT-19737 Level 3 Est. Patient 14:22:19 SAP CONSULTANT Diya cobian [facility] CPT-95505 Level 3 Est. Patient 10:11:46 CDT Carlton rich MD [facility] CPT-46461 Level 3 Est. Patient 17:29:43 CDT Elise Are ll [facility] CPT-44624 Level 3 Est. Patient 11:58:06 CDT Elise Are [facility] CPT-08863 Level 4 Est. Patient 14:36:51 CDT Carlton rich MD [facility] CPT-32128 Level 3 Est. Patient 18:16:00 SAP CONSULTANT Blaine HERNANDEZ [facility] CPT-50290 Level 3 Est. Patient 09:45:49 SAP CONSULTANT Carlton rich MD [facility] CPT-96708 Level 3 Est. Patient 13:19:20 CDT Carlton rich MD [facility] CPT-48538 Level 3 Est. Patient 13:06:43 CDT Ridge tam DO [facility] CPT-69736 Level 3 Est. Patient 10:03:07 CDT Perez Mora MD [facility] CPT-99328 Level 3 Est. Patient 19:50:35 SAP CONSULTANT Carlton rich MD [facility]-30927 Level 4 Est. Patient 18:05:01 SAP CONSULTANT Carlton rich MD [facility]-09012 Level 3 Est. Patient 10:45:55 SAP CONSULTANT Hugo Restrepo MD [facility]-08744 Level 3 Est. Patient 14:12:49 CDT Griffin HERNANDEZ [facility]-33835 Level 3 Est. Patient 17:37:24 CDT Carlton rich MD [facility]-46187 Level 3 Est. Patient 16:51:54 CDT Carlton rich MD [facility]-13416 Level 3 Est. Patient 12:18:11 CDT Hugo Restrepo MD [facility]-65388 Level 3 Est. Patient 11:30:25 CDT Marcy crisostomo MD PhD [facility]-04576 Level 3 Est. Patient 12:00:47 SAP CONSULTANT Carlton rich MD [facility]-22519 Level 3 Est. Patient 16:31:06 SAP CONSULTANT Carlton rich MD [facility]-42578 Level 3 Est. Patient 16:23:24 SAP CONSULTANT Ridge tam DO [facility]-47688 Level 3 Est. Patient 12:34:12 CDT Carlton rich MD [facility] CPT-19009 Level 2 Est. Patient 15:43:33 CDT Robi armstrong MD [facility]-98382 Level 4 Est. Patient 14:04:44 CDT Carlton rich MD [facility]-46027 Level 3 Est. Patient 05:47:59 CDT Ridge tam [facility]-09557 Level 3 Est. Patient 13:12:53 SAP CONSULTANT Carlton rich MD [facility] CPT-29396 Level 3 Est. Patient 14:26:53 CDT Hugo [...] CPT-J1100 Decadron 6mg (Dexamethasone) 14:32:13 CDT 2 CPT-55324 Hip bilat min 2V w AP pelvis 13:16:20 CDT CPT-77885 Pelvis only 13:07:33 CDT CPT-82509 Spec Collection and Handling Fee 11:25:12 C DT CPT-15470 Fluzone Quadrivalent Intramuscular Suspe nsion 0.5 ML 14:31:55 CDT CPT-76831 Abx/Therapy Injection 13:28:47 SAP CONSULTANT CPT-J2930 Solu Medrol 125 mg (Methyl Prednisolone Sodium Succinate) 12:00:47 SAP CONSULTANT CPT-75119 Venipuncture Draw Fee 11:33:31 CDT CPT-08649 EKG Trac and Interp 11:21:09 CDT CPT-64061 Chest 2V Frontal and Lat 11:21:09 CDT 12/15 CPT-62846 Venipuncture Draw Fee 08:02:34 CDT CPT-91977 Chest 2V Frontal and Lat 05:47:59 CDT 06/05
--- OUTSIDE RECORDS SUMMARY | 2019-10-08 09:28 | XMS REPORT | Clinical Summary ---
Author Author Caitlin, Juliana Martinez Organization [facility] Address Unknown Phone Unavailable Allergies, Adverse [...] Unspecified sinusitis (chronic) Bronchitis 490 Resolved Hugo Rsetrepo MD Bronchitis, not specified as acute or [...] MILD BRONCHOSPASM ICD-466.0 Inactive Marcy De La Roas MD PhD DYSPNEA ICD-786.05 Inactive Marcy De [...] po q d x 4 days AZITHROMYCIN 46566702388 No Longer Active Ridge Bess DO Active PREDNISONE 20 MG ORAL TABLET two tabs by mouth today, then one tab by mouth days two and three and four PREDNISONE 65679127372 Active Lyndsay Mora MD Active PREDNISONE 20 MG ORAL TABLET 2 po qd x 5 days P REDNISONE 40614512693 No Longer Active Perez Mora MD Active PROAIR HFA 108 (90 BASE) MCG/ACT INHALATION AEROSOL SO LUTION 2 puffs four times a day as needed ALBUTEROL SULFATE 96230687498 No Long er Active Becky FUENTES Active ASPIRIN 81 MG ORAL TABLET 1 po qd ASPIRIN 89496597486 Active Carlton Hu MD Active PREDNISONE 20 MG ORAL TABLET 1 tab twice daily for 3 d ay, then one daily for three days PREDNISONE 32850314885 No Longer Active Carlton Hu MD Active AUGMENTIN 875-125 MG ORAL TABLET 1 po BID x 10 days 20 16/03/22 AMOXICILLIN-POT CLAVULANATE 00153778423 No Longer Active Elise Garcia APRN Active TERBINAFINE HCL 250 MG ORAL TABLET 1 qDay for nail fungus 7 TERBINAFINE HCL 06763231962 No Longer Active Carlton Hu MD A ctive TUSSIONEX PENNKINETIC ER 10-8 MG/5ML ORAL SUSPENSION E XTENDED RELEASE 5ml po q12hr PRN Cough HYDROCOD POLST-CHLORPHEN POLST 93682553598 Active Carlton Hu MD Active AMOXICILLIN 500 MG ORAL CAPSULE 1 cap by mouth three times a day AMOXICILLIN 85795558266 No Longer Active Carlton Hu MD Active ELMIRON 100 MG ORAL CAPSULE 2 tablets in the am and 1 tablet at hs PENTOSAN POLYSULFATE SODIUM 82265025153 No Longer Active Robert Hu MD Active MUCINEX D 60-600 MG ORAL TABLET EXTENDED RELEASE 12 HOUR 1 t ab po q am PSEUDOEPHEDRINE-GUAIFENESIN 53108847748 No Longer Act nael Carlton Hu MD Active MUCINEX DM MAXIMUM STRENGTH 60-1200 MG ORAL TABLET EXT ENDED RELEASE 12 HOUR 1 tab po q am DEXTROMETHORPHAN-GUAIFENESIN 55928438345 No Longer Active Carlton Hu MD Active TUSSIONEX PENNKINETIC ER 10-8 MG/5ML ORAL SUSPENSION E XTENDED RELEASE 5ml po q12hr PRN Cough HYDROCOD POLST-CHLORPHEN POLST 5 2838599538 No Longer Active Carlton Hu MD Active POTASSIUM CHLORIDE ER 20 MEQ ORAL TABLET EXTENDED RELE ASE Take 1 by mouth 4 times daily for 7 days POTASSIUM CHLORIDE 35770978983 No Longer Active Carlton Hu MD Active ZITHROMAX 250 MG ORAL TABLET 2 po today, then 1 po q days 2-5 14/09/04 AZITHROMYCIN 54956427807 No Longer Active Elise Garcia APRN Active TUSSIONEX PENNKINETIC ER 10-8 MG/5ML ORAL SUSPENSION E XTENDED RELEASE 5 ml twice a day as needed for cough HYDROCOD POLST-CHLORPH EN POLST 17309705244 No Longer Active Elise Garcia APRN Active MONTELUKAST SODIUM 10 MG ORAL TABLET 1 po daily for Allergy MONTELUKAST SODIUM 79752265152 Active Carlton Hu MD Ac tive TUSSIONEX PENNKINETIC ER 10-8 MG/5ML ORAL SUSPENSION E XTENDED RELEASE 5ml po q12hr PRN Cough HYDROCOD POLST-CHLORPHEN POLST 5 8902044476 No Longer Active Hugo Restrepo MD Active GABAPENTIN 100 MG ORAL CAPSULE 1 po BID for fibromyalgia GABAPENTIN 41636737695 Active Carlton Hu MD Active LYRICA 100 MG ORAL CAPSULE Take 1 tab po BID for fibromyalgia 20 11/08/21 PREGABALIN 22581837415 No Longer Active Elise Garcia 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 A ctive PREDNISONE 20 MG ORAL TABLET 2 tabs daily for 3 days, 1 tab daily for 3 days, 1/2 tab daily for 2 days PREDNISONE 60522812769 No Longer Active Jillina Frazell 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 TUSSIONEX PENNKINETIC ER 10-8 MG/5ML ORAL SUSPENSION E XTENDED RELEASE 5 mL PO q 12 hrs PRN cough HYDROCOD POLST-CHLORPHEN POLST 841926 83664 No Longer Active Jillina Frazell 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 FLUTICASONE PROPIONATE 50 MCG/ACT NASAL SUSPENSION 2 s prays each nostril daily until bottle is empty FLUTICASONE PROPIONATE 035047417 99 No Longer Active Jillina Frazell 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 ASMANEX 60 METERED DOSES 220 MCG/INH INHALATION AEROSO L POWDER BREATH ACTIVATED 1 puff bid with rinse after MOMETASONE FUROATE 6818957 4102 No Longer Active Jillina Frazell 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 ZITHROMAX Z-REYNA 250 MG ORAL TABLET 2 today, then 1 daily for 4 d ays AZITHROMYCIN 72208636816 No Longer Active 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 Garcia 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 TUSSIONEX PENNKINETIC ER 10-8 MG/5ML ORAL SUSPENSION E XTENDED RELEASE 5ml po q12hr PRN Cough HYDROCOD POLST-CHLORPHEN POLST 5 8859856992 No Longer Active Elise Garcia 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 PREDNISONE 20 MG ORAL TABLET 2 tabs daily for 3 days, 1 tab daily for 3 days, 1/2 tab daily for 2 days PREDNISONE 47552402671 No Longer Active Jillina Frazell 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 AMOXICILLIN 500 MG ORAL CAPSULE 2 po BID x 10 days 201 09/29/08 AMOXICILLIN 28949335975 No Longer Active Jillina Frazell 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 Act nael SINGULAIR 10 MG ORAL TABLET 1 po qday for allergies 20 14/01/12 MONTELUKAST SODIUM 03385985086 No Longer Active Carlton Hu MD Active LEVAQUIN 500 MG ORAL TABLET 1 tablet by mouth daily 20 13/09/24 LEVOFLOXACIN 43189286905 No Longer Active Carlton Hu MD Acti ve FLUTICASONE PROPIONATE 50 MCG/ACT NASAL SUSPENSION 2 s prays each nostril daily for 2 weeks, then 1 spray each nostril daily. FLUTICASONE PROPIONATE 59798123439 Active Elise Areseema KHAN Active ZITHROMAX 250 MG ORAL TABLET 2 po today, then 1 po q days 2-5 20 13/08/10 AZITHROMYCIN 32135386703 No Longer Active Elise Garcia APRN Active XANAX 0.5 MG ORAL TABLET one tablet by mouth daily prn anxiety 2015 ALPRAZOLAM 83269039198 Active ALFREDO Holly Active CYMBALTA 30 MG ORAL CAPSULE DELAYED RELEASE PARTICLES 1 cap by mouth daily for depression DULOXETINE HCL 45086079088 Active ALFREDO Holly Active CEFDINIR 300 MG ORAL CAPSULE 1 po BID x 10 days CEFDINIR 69138881842 No Longer Active Carlton Hu MD Active ZOCOR 40 MG ORAL TABLET 1 tab by mouth daily SI MVASTATIN 43260927946 No Longer Active Carlton Hu MD Active CYCLOBENZAPRINE HCL 10 MG ORAL TABLET 1 tablet by mouth BID prn had pain CYCLOBENZAPRINE HCL 55724526189 No Longer Active Jayden Hu MD Active LEVOFLOXACIN 500 MG ORAL TABLET 1 tab PO daily x 10 days LEVOFLOXACIN 38721884055 No Longer Active Carlton Hu MD Acti ve PREDNISONE 20 MG ORAL TABLET 3 tab PO qd x 2d, 2 tab P O qd x 2d, 1 tab PO qd x 2d, 1/2 tab PO qd x 2d PREDNISONE 90783751505 No Lo nger Active Carlton Hu MD Active FLUTICASONE PROPIONATE 50 MCG/ACT NASAL SUSPENSION 1 t o 2 sprays each nostril daily FLUTICASONE PROPIONATE 29151301032 No Longer Ac tive Blaine HERNANDEZ Active CHERATUSSIN AC 100-10 MG/5ML ORAL SYRUP 1 tsp by mouth every 4 hours as needed for cough GUAIFENESIN-CODEINE 70429700025 No Longe r Active Blaine HERNANDEZ Active PROMETHAZINE-CODEINE 6.25-10 MG/5ML ORAL SYRUP 1 tsp b y mouth every 6 hours if needed for cough PROMETHAZINE-CODEINE 74164694057 No Longer Active Blaine HERNANDEZ Active CHERATUSSIN AC 100-10 MG/5ML ORAL SYRUP 1 tsp by mouth every 4 hours as needed for cough GUAIFENESIN-CODEINE 72251570363 No Longe r Active Blaine HERNANDEZ Active ZITHROMAX Z-REYNA 250 MG ORAL TABLET 2 today, then 1 daily for 4 d ays AZITHROMYCIN 90268786005 No Longer Active Columba Raida Act nael ZITHROMAX 250 MG ORAL TABLET 2 po today, then 1 po q days 2-5 20 14/03/21 AZITHROMYCIN 03209145169 No Longer Active Carlton Hu MD Active ZITHROMAX Z-REYNA 250 MG ORAL TABLET 2 today, then 1 daily for 4 d ays AZITHROMYCIN 90197379588 No Longer Active Columba Raida Act nael AUGMENTIN 875-125 MG ORAL TABLET 1 po BID x 10 days 13/01/20 AMOXICILLIN-POT CLAVULANATE 21857284119 No Longer Active Diya De Guzman APRN Active ZITHROMAX 250 MG ORAL TABLET 2 po today, then 1 po q days 2-5 20 12/08/14 AZITHROMYCIN 75668284439 No Longer Active Carlton Hu MD Active TRAMADOL HCL 50 MG ORAL TABLET 1 po tid with ES Tylenol TRAMADOL HCL 62938497688 Active ALFREDO Holly Active PREMARIN 0.625 MG ORAL TABLET TAKE 1 TAB BY MOUTH DAILY ESTROGENS CONJUGATED 89226599952 No Longer Active Ridge Bess DO A ctive CYMBALTA 30 MG ORAL CAPSULE DELAYED RELEASE PARTICLES 1 cap by mouth daily DULOXETINE HCL 06336888343 No Longer Active Ridge tam DO Active AMOXICILLIN 500 MG ORAL CAPSULE 1 tab by mouth 3 times daily x 10 days AMOXICILLIN 79585374938 No Longer Active Carlton bustamante MD Active AMOXICILLIN 500 MG ORAL CAPSULE 1 tab by mouth 3 times daily x 10 days AMOXICILLIN 89133259312 No Longer Active Carlton bustamante MD Active PROMETHAZINE-CODEINE 6.25-10 MG/5ML ORAL SYRUP 1 tsp b y mouth every 8 hours prn cough PROMETHAZINE-CODEINE 61408069071 No Longer Acti ve Carlton Hu MD Active MEDROL 4 MG ORAL TABLET THERAPY PACK 6 pills x 1 day, then 5 pills x 1 day then 4 pills x 1 day, then 3 pills x 1 day, then 2 pills x 1 day, then 1 pill x 1 day, then stop METHYLPREDNISOLONE 61036067858 No Long er Active Perez Mora MD Active AZITHROMYCIN 250 MG ORAL TABLET 2 po qd x 1 day, then 1 po q d x 4 days AZITHROMYCIN 91485755863 No Longer Active Perez Ambriz MD Active SYMBICORT 160-4.5 MCG/ACT INHALATION AEROSOL 2 puffs bid wit h rinse after BUDESONIDE-FORMOTEROL FUMARATE 37901213250 N o Longer Active Perez Mora MD Active LYRICA 75 MG ORAL CAPSULE TAKE 1 CAPSULE BY MOUTH TWICE DAILY PREGABALIN 43226563404 No Longer Active Carlton Hu MD Acti ve TOPAMAX 25 MG ORAL TABLET 1 qHS x 1 week, then 1 BID x 1 week, then 1 qAM and 2 qHS x 1 week, then 2 BID (migraine prevention) T OPIRAMATE 82296317577 No Longer Active Jerica FUENTES Active TOPAMAX 50 MG ORAL TABLET take 1 tab po BID for migraines. 07/02 TOPIRAMATE 74236660313 No Longer Active Jerica FUENTES Active TOPAMAX 100 MG ORAL TABLET Take 1 tablet po bid TO PIRAMATE 32217169941 Active Carlton Hu MD Active TRIAMCINOLONE ACETONIDE 0.1 % EXTERNAL CREAM apply three roger es daily prn rash TRIAMCINOLONE ACETONIDE 70721995243 No Longer Active Carlton Hu MD Active PAXIL 40 MG ORAL TABLET take 1 tab po qday for depression 0 PAROXETINE HCL 22535183473 Active ALFREDO Holly Active CHERATUSSIN AC 100-10 MG/5ML ORAL SYRUP 5ml po q6hr PRN Cough 20 13/04/14 GUAIFENESIN-CODEINE 22090359387 No Longer Active Carlton Hu MD Active MEDROL 4 MG ORAL TABLET THERAPY PACK 6 tabs on day 1, 5 tabs on day 2, 4 tabs on day 3, 3 tabs on day 4, 2 tabs on day 5, 1 tab on day 6 2013 METHYLPREDNISOLONE 82366481314 No Longer Active Perez Mora MD Active AZITHROMYCIN 250 MG ORAL TABLET 2 po qd x 1 day, then 1 po q d x 4 days AZITHROMYCIN 42364935127 No Longer Active Perez Ambriz MD Active PROPRANOLOL HCL 60 MG ORAL TABLET 1 PO Q D PROPRANOLOL HCL 14752499152 No Longer Active Perez Mora MD Activ e CHERATUSSIN AC 100-10 MG/5ML ORAL SYRUP take one tsp po Q 6h ours prn cough GUAIFENESIN-CODEINE 70649822400 No Longer Active Zia Mora MD Active AUGMENTIN 875-125 MG ORAL TABLET 1 tab by mouth twice daily with food AMOXICILLIN-POT CLAVULANATE 71270627845 No Longer Act nael Mora MD Active CHERATUSSIN AC 100-10 MG/5ML ORAL SYRUP 1 tsp by mouth every 4 hours as needed for cough GUAIFENESIN-CODEINE 96879304692 No Longe r Active Hugo Restrepo MD Active ACETAMINOPHEN-CODEINE #3 300-30 MG ORAL TABLET 1 PO Q 4-6 HRS DC N PAIN ACETAMINOPHEN-CODEINE 94659552333 No Longer Active Hugo Restrepo MD Active LEVAQUIN 500 MG ORAL TABLET take one po QD LEVO FLOXACIN 94387012961 No Longer Active Griffin HERNANDEZ Active PREDNISONE 20 MG ORAL TABLET Take 3 tabs daily for 3 d ays, 2 tabs daily for 3 days, 1 tab daily for 3 days, 1/2 tab daily for 3 days 11/07 PREDNISONE 66429799742 No Longer Active Carlton Hu MD Acti ve AVELOX 400 MG ORAL TABLET 1 tab by mouth daily MOXIFLOXACIN HCL 74180328789 No Longer Active Carlton Hu MD Active CHERATUSSIN AC 100-10 MG/5ML ORAL SYRUP 1 tsp by mouth every 4 hours as needed for cough GUAIFENESIN-CODEINE 10039085681 No Longe r Active Hugo Restrepo MD Active AVELOX 400 MG ORAL TABLET 1 tab by mouth daily MOXIFLOXACIN HCL 00975708506 No Longer Active Marcy De La Rosa MD PhD Active TERBINAFINE HCL 250 MG ORAL TABLET 1 qDay T ERBINAFINE HCL 93872981214 No Longer Active Marcy De La Rosa MD PhD Active CHERATUSSIN AC 100-10 MG/5ML ORAL SYRUP 1 tsp by mouth every 4 hours as needed for cough GUAIFENESIN-CODEINE 57738314450 No Longe r Active Marcy De La Rosa MD PhD Active AVELOX 400 MG ORAL TABLET 1 tab by mouth daily MOXIFLOXACIN HCL 95731871559 No Longer Active Marcy C Madril MD PhD Active HYDROCODONE-ACETAMINOPHEN 5-325 MG ORAL TABLET 1 po q 6hr PRN co ugh HYDROCODONE-ACETAMINOPHEN 75789641024 No Longer Active Marcy De La Rosa MD PhD Active PREDNISONE 20 MG ORAL TABLET 2 tabs daily for 3 days, 1 tab daily for 3 days, 1/2 tab daily for 2 days PREDNISONE 61739404873 No Longer Active Carlton Hu MD Active CEFDINIR 300 MG ORAL CAPSULE by mouth twice a day 2011 CEFDINIR 80335584009 No Longer Active Carlton Hu MD Acti ve HYDROCHLOROTHIAZIDE 25 MG ORAL TABLET 1 TAB PO DAILY HYDROCHLOROTHIAZIDE 97869580796 Active ALFREDO Holly Ac tive ACETAMINOPHEN-CODEINE #3 300-30 MG ORAL TABLET 1 tablet po q 4-6 hrs prn pain ACETAMINOPHEN-CODEINE 38499225371 No Longer Active Ridge Bess DO Active ZITHROMAX 250 MG ORAL TABLET 2 po today, then 1 po q days 2-5 20 03/07/07 AZITHROMYCIN 74258912772 No Longer Active Carlton Hu MD Active CHERATUSSIN AC 100-10 MG/5ML ORAL SYRUP take 1 tsp po q4-6 h ours prn cough GUAIFENESIN-CODEINE 67080521992 No Longer Active Jayden Hu MD Active ACETAMINOPHEN-CODEINE #3 300-30 MG ORAL TABLET 1 PO Q 4-6 HR PRN PAIN ACETAMINOPHEN-CODEINE 91936233932 No Longer Active Da vid Lyndsay Hu MD Active LORTAB 7.5-500 MG/15ML ORAL ELIXIR 7.5 ml po q 4 hour prn cough HYDROCODONE-ACETAMINOPHEN 79687482735 No Longer Active Carlton Hu MD Active PREDNISONE 20 MG ORAL TABLET 1 po bid 3 days, then 1 po q day 3 days PREDNISONE 50062631409 No Longer Active Carlton Hu MD Active CEFDINIR 300 MG ORAL CAPSULE by mouth twice a day 2011 CEFDINIR 46798383553 No Longer Active Carlton Hu MD Acti ve CEFDINIR 300 MG ORAL CAPSULE by mouth twice a day 2010 CEFDINIR 44112237217 No Longer Active Carlton Hu MD Acti ve CEFDINIR 300 MG ORAL CAPSULE by mouth twice a day 2010 CEFDINIR 76950631359 No Longer Active Carlton Hu MD Acti ve TESSALON PERLES 100 MG ORAL CAPSULE 1 tablet by mouth 3 times daily as needed for cough BENZONATATE 79324220496 No Longer Active Carlton Hu MD Active CEFDINIR 300 MG ORAL CAPSULE by mouth twice a day 2010 CEFDINIR 37969282849 No Longer Active Carlton Hu MD Acti ve ZITHROMAX Z-REYNA 250 MG ORAL TABLET 2 today, then 1 daily for 4 d ays AZITHROMYCIN 49356538817 No Longer Active Hugo Restrepo MD Active TESSALON PERLES 100 MG ORAL CAPSULE 1 tablet by mouth 3 times daily as needed for cough TESSALON PERLES 100 MG ORAL CAPSULE 49273 7 BENZONATATE Inactive PREDNISONE 20 MG ORAL TABLET 1 po bid 3 days, then 1 po q day 3 days PREDNISONE 20 MG ORAL TABLET 710078 PREDNISONE Greer ctive LORTAB 7.5-500 MG/15ML ORAL [...] cough CHERATUSSIN AC 100-10 MG/5ML ORAL SYRUP 804689 GUAIFENESIN-CODEINE Inactive ACETAMINOPHEN-CODEINE #3 300-30 MG ORAL TABLET 1 tablet po q 4-6 hrs prn pain ACETAMINOPHEN-CODEINE #3 300-30 MG ORAL TABLET ACETAMINOPHEN-CODEINE Inactive HYDROCODONE-ACETAMINOPHEN 5-325 MG ORAL TABLET 1 po q 6hr PRN co ugh HYDROCODONE-ACETAMINOPHEN 5-325 MG ORAL TABLET 379849 HYDROCODONE-ACETAMINOPHEN Inactive AVELOX 400 MG ORAL TABLET 1 tab by mouth daily AVELOX 400 MG ORAL TABLET 329136 MOXIFLOXACIN HCL Inactive CHERATUSSIN AC 100-10 MG/5ML ORAL SYRUP 1 tsp by mouth every 4 hours as needed for cough CHERATUSSIN AC 100-10 MG/5ML ORAL SYRUP 9 03739 GUAIFENESIN-CODEINE Inactive TERBINAFINE HCL 250 MG ORAL TABLET 1 qDay 07/08 TERBINAFINE HCL 250 MG ORAL TABLET 753482 TERBINAFINE HCL Inactive CHERATUSSIN AC 100-10 MG/5ML ORAL SYRUP 1 tsp by mouth every 4 hours as needed for cough CHERATUSSIN AC 100-10 MG/5ML ORAL SYRUP 9 86774 GUAIFENESIN-CODEINE Inactive ACETAMINOPHEN-CODEINE #3 300-30 MG ORAL TABLET 1 PO Q 4-6 HRS DC N PAIN ACETAMINOPHEN-CODEINE #3 300-30 MG ORAL TABLET ACETAMINOPHEN-CODEINE Inactive CHERATUSSIN AC 100-10 MG/5ML ORAL SYRUP 1 tsp by mouth every 4 hours as needed for cough CHERATUSSIN AC 100-10 MG/5ML ORAL SYRUP 9 44032 GUAIFENESIN-CODEINE Inactive AUGMENTIN 875-125 MG ORAL TABLET 1 tab by mouth twice daily with food AUGMENTIN 875-125 MG ORAL TABLET 715976 AMOXICIL MADELINE-POT CLAVULANATE Inactive CHERATUSSIN AC 100-10 MG/5ML ORAL SYRUP take one tsp po Q 6h ours prn cough CHERATUSSIN AC 100-10 MG/5ML ORAL SYRUP 778114 GUAIFENESIN-CODEINE Inactive PROPRANOLOL HCL 60 MG ORAL TABLET 1 PO Q D PROPRANOLOL HCL 60 MG ORAL TABLET 826540 PROPRANOLOL HCL Inactive TOPAMAX 50 MG ORAL TABLET take 1 tab po BID for migraines. 07/02 TOPAMAX 50 MG ORAL TABLET 309122 TOPIRAMATE Inacti ve TOPAMAX 25 MG ORAL TABLET 1 qHS x 1 week, then 1 BID x 1 week, then 1 qAM and 2 qHS x 1 week, then 2 BID (migraine prevention) TOPAMAX 25 MG ORAL TABLET 198063 TOPIRAMATE Inactive LYRICA 75 MG ORAL CAPSULE TAKE 1 CAPSULE BY MOUTH TWICE DAILY LYRICA 75 MG ORAL CAPSULE PREGABALIN Inactive SYMBICORT 160-4.5 MCG/ACT INHALATION AEROSOL 2 puffs bid wit h rinse after SYMBICORT 160-4.5 MCG/ACT INHALATION AEROSOL BUDESONIDE- FORMOTEROL FUMARATE Inactive PROMETHAZINE-CODEINE 6.25-10 MG/5ML ORAL SYRUP 1 tsp b y mouth every 8 hours prn cough PROMETHAZINE-CODEINE 6.25-10 MG/ 5ML ORAL SYRUP 426822 PROMETHAZINE-CODEINE Inactive CYMBALTA 30 MG ORAL CAPSULE DELAYED RELEASE PARTICLES 1 cap by mouth daily CYMBALTA 30 MG ORAL CAPSULE DELAYED RELE ASE PARTICLES 020648 DULOXETINE HCL Inactive PREMARIN 0.625 MG ORAL TABLET TAKE 1 TAB BY MOUTH DAILY PREMARIN 0.625 MG ORAL TABLET ESTROGENS CONJUGATED Inactive CHERATUSSIN AC 100-10 MG/5ML ORAL SYRUP 1 tsp by mouth every 4 hours as needed for cough CHERATUSSIN AC 100-10 MG/5ML ORAL SYRUP 9 41982 GUAIFENESIN-CODEINE Inactive PROMETHAZINE-CODEINE 6.25-10 MG/5ML ORAL SYRUP 1 tsp b y mouth every 6 hours if needed for cough PROMETHAZINE-CODEINE 6.25-10 MG/5ML ORAL SYRUP 882359 PROMETHAZINE-CODEINE Inactive CHERATUSSIN AC 100-10 MG/5ML ORAL SYRUP 1 tsp by mouth every 4 hours as needed for cough CHERATUSSIN AC 100-10 MG/5ML ORAL SYRUP 9 48739 GUAIFENESIN-CODEINE Inactive FLUTICASONE PROPIONATE 50 MCG/ACT NASAL SUSPENSION 1 t o 2 sprays each nostril daily FLUTICASONE PROPIONATE 50 MCG/AC T NASAL SUSPENSION 3811374 FLUTICASONE PROPIONATE Inactive PREDNISONE 20 MG ORAL TABLET 3 tab PO qd x 2d, 2 tab P O qd x 2d, 1 tab PO qd x 2d, 1/2 tab PO qd x 2d PREDNISONE 20 MG ORAL TAB LET 346112 PREDNISONE Inactive LEVOFLOXACIN 500 MG ORAL TABLET 1 tab PO daily x 10 days LEVOFLOXACIN 500 MG ORAL TABLET 041641 LEVOFLOXACIN Inactive CYCLOBENZAPRINE HCL 10 MG ORAL TABLET 1 tablet by mouth BID prn had pain CYCLOBENZAPRINE HCL 10 MG ORAL TABLET 697933 CYCLOBENZAPRINE HCL Inactive ZOCOR 40 MG ORAL TABLET 1 tab by mouth daily 4 ZOCOR 40 MG ORAL TABLET 186577 SIMVASTATIN Inactive TUSSIONEX PENNKINETIC ER 10-8 MG/5ML [...] FLUTICASONE PROPIO EFE 50 MCG/ACT NASAL SUSPENSION 8141517 FLUTICASONE PROPIONATE Inactive TUSSIONEX PENNKINETIC ER 10-8 [...] three days PREDNISONE 20 MG ORAL TABLET 032324 PREDNIS ONE Inactive PROAIR HFA 108 (90 BASE) MCG/ACT INHALATION AEROSOL SO LUTION 2 puffs four times a day as needed PROAIR HFA 108 (90 B ASE) MCG/ACT INHALATION AEROSOL SOLUTION ALBUTEROL SULFATE Inactive ZITHROMAX Z-REYNA 250 MG ORAL TABLET 2 today, then 1 daily for 4 d ays ZITHROMAX Z-REYNA 250 MG ORAL TABLET 598831 AZITHROMYCIN Inactive CEFDINIR 300 MG ORAL CAPSULE by mouth twice a day 2010 CEFDINIR 300 MG ORAL CAPSULE 372590 CEFDINIR Inactive CEFDINIR 300 MG ORAL CAPSULE by mouth twice a day 2010 CEFDINIR 300 MG ORAL CAPSULE 582580 CEFDINIR Inactive CEFDINIR 300 MG ORAL CAPSULE by mouth twice a day 2010 CEFDINIR 300 MG ORAL CAPSULE 830123 CEFDINIR Inactive CEFDINIR 300 MG ORAL CAPSULE by mouth twice a day 2011 CEFDINIR 300 MG ORAL CAPSULE 123506 CEFDINIR Inactive ZITHROMAX 250 MG ORAL TABLET 2 po today, then 1 po q days 2-5 20 03/07/07 ZITHROMAX 250 MG ORAL TABLET 019395 AZITHROMYCIN [place] ctive CEFDINIR 300 MG ORAL CAPSULE by mouth twice a day 2011 CEFDINIR 300 MG ORAL CAPSULE 980226 CEFDINIR Inactive PREDNISONE 20 MG ORAL TABLET 2 tabs daily for 3 days, 1 tab daily for 3 days, 1/2 tab daily for 2 days PREDNISONE 20 MG ORAL T ABLET 370966 PREDNISONE Inactive AVELOX 400 MG ORAL TABLET 1 tab by mouth daily AVELOX 400 MG ORAL TABLET 395205 MOXIFLOXACIN HCL Inactive AVELOX 400 MG ORAL TABLET 1 tab by mouth daily AVELOX 400 MG ORAL TABLET 948111 MOXIFLOXACIN HCL Inactive PREDNISONE 20 MG ORAL TABLET Take 3 tabs daily for 3 d ays, 2 tabs daily for 3 days, 1 tab daily for 3 days, 1/2 tab daily for 3 days 11/07 PREDNISONE 20 MG ORAL TABLET 726407 PREDNISONE Inactive LEVAQUIN 500 MG ORAL TABLET take one po QD LEVAQUIN 500 MG ORAL TABLET 399515 LEVOFLOXACIN Inactive AZITHROMYCIN 250 MG ORAL TABLET 2 po qd x 1 day, then 1 po q d x 4 days AZITHROMYCIN 250 MG ORAL TABLET 729082 AZITHROMY GIOVANNI Inactive MEDROL 4 MG ORAL TABLET THERAPY PACK 6 tabs on day 1, 5 tabs on day 2, 4 tabs on day 3, 3 tabs on day 4, 2 tabs on day 5, 1 tab on day 6 2013 MEDROL 4 MG ORAL TABLET THERAPY PACK 624504 METHYLPREDNISOLONE [place] ctive CHERATUSSIN AC 100-10 MG/5ML ORAL SYRUP 5ml po q6hr PRN Cough 20 13/04/14 CHERATUSSIN AC 100-10 MG/5ML ORAL SYRUP 395119 GUAIFENE SIN-CODEINE Inactive TRIAMCINOLONE ACETONIDE 0.1 % EXTERNAL CREAM apply three roger es daily prn rash TRIAMCINOLONE ACETONIDE 0.1 % EXTERNAL CREAM 101 4314 TRIAMCINOLONE ACETONIDE Inactive AZITHROMYCIN 250 MG ORAL TABLET 2 po qd x 1 day, then 1 po q d x 4 days AZITHROMYCIN 250 MG ORAL TABLET 765979 AZITHROMY GIOVANNI Inactive MEDROL 4 MG ORAL TABLET THERAPY PACK 6 pills x 1 day, then 5 pills x 1 day then 4 pills x 1 day, then 3 pills x 1 day, then 2 pills x 1 day, then 1 pill x 1 day, then stop MEDROL 4 MG ORAL TABLET THERAPY PACK 798032 METHYLPREDNISOLONE Inactive AMOXICILLIN 500 MG ORAL CAPSULE 1 tab by mouth 3 times daily x 10 days AMOXICILLIN 500 MG ORAL CAPSULE 494682 AMOXICILL IN Inactive AMOXICILLIN 500 MG ORAL CAPSULE 1 tab by mouth 3 times daily x 10 days AMOXICILLIN 500 MG ORAL CAPSULE 360078 AMOXICILL IN Inactive ZITHROMAX 250 MG ORAL TABLET 2 po today, then 1 po q days 2-5 20 12/08/14 ZITHROMAX 250 MG ORAL TABLET 773133 AZITHROMYCIN [place] ctive AUGMENTIN 875-125 MG ORAL TABLET 1 po BID x 10 days 20 13/01/20 AUGMENTIN 875-125 MG ORAL TABLET 152231 AMOXICILLIN-POT CLAVULANATE Inactive ZITHROMAX Z-REYNA 250 MG ORAL TABLET 2 today, then 1 daily for 4 d ays ZITHROMAX Z-REYNA 250 MG ORAL TABLET 862690 AZITHROMYCIN Inactive ZITHROMAX 250 MG ORAL TABLET 2 po today, then 1 po q days 2-5 20 14/03/21 ZITHROMAX 250 MG ORAL TABLET 771786 AZITHROMYCIN [place] ctive ZITHROMAX Z-REYNA 250 MG ORAL TABLET 2 today, then 1 daily for 4 d ays ZITHROMAX Z-REYNA 250 MG ORAL TABLET 836769 AZITHROMYCIN Inactive CEFDINIR 300 MG ORAL CAPSULE 1 po BID x 10 days 06/21 CEFDINIR 300 MG ORAL CAPSULE 691775 CEFDINIR Inactive ZITHROMAX 250 MG ORAL TABLET 2 po today, then 1 po q days 2-5 20 13/08/10 ZITHROMAX 250 MG ORAL TABLET 973998 AZITHROMYCIN [place] ctive LEVAQUIN 500 MG ORAL TABLET 1 tablet by mouth daily 20 13/09/24 LEVAQUIN 500 MG ORAL TABLET 259256 LEVOFLOXACIN Inactive SINGULAIR 10 MG ORAL TABLET 1 po qday for allergies 20 14/01/12 SINGULAIR 10 MG ORAL TABLET 295886 MONTELUKAST SODIUM Inactive AMOXICILLIN 500 MG ORAL CAPSULE 2 po BID x 10 days 201 09/29/08 AMOXICILLIN 500 MG ORAL CAPSULE 189658 AMOXICILLIN Inactive PREDNISONE 20 MG ORAL TABLET 2 tabs daily for 3 days, 1 tab daily for 3 days, 1/2 tab daily for 2 days PREDNISONE 20 MG ORAL T ABLET 115581 PREDNISONE Inactive ZITHROMAX Z-REYNA 250 MG ORAL TABLET 2 today, then 1 daily for 4 d ays ZITHROMAX Z-REYNA 250 MG ORAL TABLET 333969 AZITHROMYCIN Inactive PREDNISONE 20 MG ORAL TABLET 2 tabs daily for 3 days, 1 tab daily for 3 days, 1/2 tab daily for 2 days PREDNISONE 20 MG ORAL T ABLET 111057 PREDNISONE Inactive ZITHROMAX 250 MG ORAL TABLET 2 po today, then 1 po q days 2-5 20 14/09/04 ZITHROMAX 250 MG ORAL TABLET 810966 AZITHROMYCIN Greer ctive AMOXICILLIN 500 MG ORAL CAPSULE 1 cap by mouth three times a day AMOXICILLIN 500 MG ORAL CAPSULE 843036 AMOXICILLIN Inactive TERBINAFINE HCL 250 MG ORAL TABLET 1 qDay for nail fungus 7 TERBINAFINE HCL 250 MG ORAL TABLET [id number] TERBINAFINE HCL Inact nael AUGMENTIN 875-125 MG ORAL TABLET 1 po BID x 10 days 16/03/22 AUGMENTIN 875-125 MG ORAL TABLET 739985 AMOXICILLIN-POT CLAVULANATE Inactive PREDNISONE 20 MG ORAL TABLET 2 po qd x 5 days PREDNISONE 20 MG ORAL TABLET 296594 PREDNISONE Inactive AZITHROMYCIN 250 MG ORAL TABLET 2 po qd x 1 day, then 1 po q d x 4 days AZITHROMYCIN 250 MG ORAL TABLET 137583 AZITHROMY GIOVANNI Inactive Vital Signs Date Name [...] - Chem istry sodium, serum 139 mmol/L 990-601 1099/03/19 potassium, serum 3.6 mmol/L 3.5-5.2 chloride, serum 100 mmol/L 98-107 carbon dioxide, venous blood 30.3 mmol/L 21.0-32 .0 blood glucose 101 mg/dL 65-110 calcium, serum 9.4 mg/dL 8.5-10.1 urea nitrogen, blood 10 mg/dL 7-18 creatinine, serum 0.96 mg/dL 0.60-1.30 sodium, serum 139 mmol/L 931-373 3296/10/12 potassium, serum 3.8 mmol/L 3.5-5.2 chloride, serum 102 mmol/L 98-107 carbon dioxide, venous blood 29.4 mmol/L 21.0-32 .0 blood glucose 103 mg/dL 65-95 calcium, serum 8.8 mg/dL 8.5-10.1 urea nitrogen, blood 10 mg/dL 7-18 creatinine, serum 0.97 mg/dL 0.60-1.30 Estimated Glomerular Filtration Rate (calc) 62 (?) mL/min/1.73m2 = OR > 60 mL/min Encounters Code Encounter Date Provider Facility [id number] Vst-Est Level III 11:12:16 CDT Br tami Bess DO [facility] CPT-50986 Level 3 Est. Patient 11:34:49 TRUCK SERVICE TECHNICIAN Perez Mora MD [facility] CPT-19169 Level 4 Est. Patient 09:51:32 TRUCK SERVICE TECHNICIAN Carlton rich MD [facility] CPT-04009 Level 3 Est. Patient 10:26:00 TRUCK SERVICE TECHNICIAN Elise stephenson APRN [facility] CPT-17784 Level 3 Est. Patient 13:35:41 TRUCK SERVICE TECHNICIAN Carlton rich MD [facility] CPT-13940 Level 3 Est. Patient 10:03:52 TRUCK SERVICE TECHNICIAN Carlton rich MD [facility] CPT-55259 Level 3 Est. Patient 12:17:50 CDT Hugo Restrepo MD [facility] CPT-98617 Level 3 Est. Patient 13:42:38 CDT Elise Are ll [facility] CPT-34641 Level 3 Est. Patient 13:23:51 CDT Diya cobian [facility] CPT-65787 Level 3 Est. Patient 14:22:19 TRUCK SERVICE TECHNICIAN Diya cobian [facility] CPT-10825 Level 3 Est. Patient 10:11:46 CDT Carlton rich MD [facility] CPT-82623 Level 3 Est. Patient 17:29:43 CDT Elise Are ll [facility] CPT-89339 Level 3 Est. Patient 11:58:06 CDT Elise Are [facility] CPT-74152 Level 4 Est. Patient 14:36:51 CDT Carlton rich MD [facility] CPT-09645 Level 3 Est. Patient 18:16:00 TRUCK SERVICE TECHNICIAN Blaine HERNANDEZ [facility] CPT-13326 Level 3 Est. Patient 09:45:49 TRUCK SERVICE TECHNICIAN Carlton rich MD [facility] CPT-20694 Level 3 Est. Patient 13:19:20 CDT Carlton rich MD [facility] CPT-44600 Level 3 Est. Patient 13:06:43 CDT Ridge tam DO [facility] CPT-97465 Level 3 Est. Patient 10:03:07 CDT Perez Mora MD [facility] CPT-38429 Level 3 Est. Patient 19:50:35 TRUCK SERVICE TECHNICIAN Carlton rich MD [facility]-88723 Level 4 Est. Patient 18:05:01 TRUCK SERVICE TECHNICIAN Carlton rich MD [facility]-91813 Level 3 Est. Patient 10:45:55 TRUCK SERVICE TECHNICIAN Hugo Restrepo MD [facility]-98917 Level 3 Est. Patient 14:12:49 CDT Griffin HERNANDEZ [facility]-83000 Level 3 Est. Patient 17:37:24 CDT Carlton rich MD [facility]-28935 Level 3 Est. Patient 16:51:54 CDT Carlton rich MD [facility]-81767 Level 3 Est. Patient 12:18:11 CDT Hugo Restrepo MD [facility]-98547 Level 3 Est. Patient 11:30:25 CDT Mracy crisostomo MD PhD [facility]-66041 Level 3 Est. Patient 12:00:47 TRUCK SERVICE TECHNICIAN Carlton rich MD [facility]-22389 Level 3 Est. Patient 16:31:06 TRUCK SERVICE TECHNICIAN Carlton rich MD [facility]-04105 Level 3 Est. Patient 16:23:24 TRUCK SERVICE TECHNICIAN Ridge tam DO [facility]-08194 Level 3 Est. Patient 12:34:12 CDT Carlton rich MD [facility] CPT-96026 Level 2 Est. Patient 15:43:33 CDT Robi armstrong MD [facility]-62213 Level 4 Est. Patient 14:04:44 CDT Carlton rich MD [facility]-43894 Level 3 Est. Patient 05:47:59 CDT Ridge tam [facility]-64507 Level 3 Est. Patient 13:12:53 TRUCK SERVICE TECHNICIAN Carlton rich MD [facility] CPT-27403 Level 3 Est. Patient 14:26:53 CDT Hugo Restrepo MD [facility] Procedures Code Procedure Name Date Entry Date Standard Desc ription CPT-000 Give Appropriate Flu Vaccine 14:14:31 CDT 2 CPT-J1040 Depo Medrol 80 mg (Methyl Prednisolone A cetate) 10:42:44 CDT CPT-J1100 Decadron 8mg (Dexamethasone) 10:42:44 CDT 2 CPT-J0696 Rocephin 1gm Inj Solr 14:32:13 CDT CPT-J1020 Depo Medrol 60 mg (Methyl Prednisolone A cetate) 14:32:13 CDT CPT-J1100 Decadron 6mg (Dexamethasone) 14:32:13 CDT 2 CPT-00552 Hip bilat min 2V w AP pelvis 13:16:20 CDT CPT-53876 Pelvis only 13:07:33 CDT CPT-68454 Spec Collection and Handling Fee 11:25:12 C DT CPT-06033 Fluzone Quadrivalent Intramuscular Suspe nsion 0.5 ML 14:31:55 CDT CPT-73534 Abx/Therapy Injection 13:28:47 TRUCK SERVICE TECHNICIAN CPT-J2930 Solu Medrol 125 mg (Methyl Prednisolone Sodium Succinate) 12:00:47 TRUCK SERVICE TECHNICIAN CPT-80778 Venipuncture Draw Fee 11:33:31 CDT CPT-42633 EKG Trac and Interp 11:21:09 CDT CPT-31968 Chest 2V Frontal and Lat 11:21:09 CDT 12/15 CPT-08414 Venipuncture Draw Fee 08:02:34 CDT CPT-79588 Chest 2V Frontal and Lat 05:47:59 CDT 06/05
--- OUTSIDE RECORDS SUMMARY | 2019-10-08 09:29 | XMS REPORT | Clinical Summary ---
[...] URI 465.9 Inactive Ridge Bess DO Ac sycuan upper respiratory infections of unspecified site Body [...] po q d x 4 days AZITHROMYCIN 58110187842 No Longer Active Ridge Bess DO Active PREDNISONE 20 MG ORAL TABLET two tabs by mouth today, then one tab by mouth days two and three and four PREDNISONE 58678464168 Active Lyndsay Mora MD Active PREDNISONE 20 MG ORAL TABLET 2 po qd x 5 days P REDNISONE 14828728003 No Longer Active Perez Mora MD Active PROAIR HFA 108 (90 BASE) MCG/ACT INHALATION AEROSOL SO LUTION 2 puffs four times a day as needed ALBUTEROL SULFATE 83026758331 No Long er Active Becky FUENTES Active ASPIRIN 81 MG ORAL TABLET 1 po qd ASPIRIN 74050688402 Active Carlton Hu MD Active PREDNISONE 20 MG ORAL TABLET 1 tab twice daily for 3 d ay, then one daily for three days PREDNISONE 20682666401 No Longer Active Carlton Hu MD Active AUGMENTIN 875-125 MG ORAL TABLET 1 po BID x 10 days 20 16/03/22 AMOXICILLIN-POT CLAVULANATE 11055879559 No Longer Active Elise Garcia APRN Active TERBINAFINE HCL 250 MG ORAL TABLET 1 qDay for nail fungus 7 TERBINAFINE HCL 21964836790 No Longer Active Carlton Hu MD A ctive TUSSIONEX PENNKINETIC ER 10-8 MG/5ML ORAL SUSPENSION E XTENDED RELEASE 5ml po q12hr PRN Cough HYDROCOD POLST-CHLORPHEN POLST 33903965245 Active Carlton Hu MD Active AMOXICILLIN 500 MG ORAL CAPSULE 1 cap by mouth three times a day AMOXICILLIN 67559379589 No Longer Active Carlton Hu MD Active ELMIRON 100 MG ORAL CAPSULE 2 tablets in the am and 1 tablet at hs PENTOSAN POLYSULFATE SODIUM 35137443600 No Longer Active Robert jade Hu MD Active MUCINEX D 60-600 MG ORAL TABLET EXTENDED RELEASE 12 HOUR 1 t ab po q am PSEUDOEPHEDRINE-GUAIFENESIN 91365495318 No Longer Act nael Carlton Hu MD Active MUCINEX DM MAXIMUM STRENGTH 60-1200 MG ORAL TABLET EXT ENDED RELEASE 12 HOUR 1 tab po q am DEXTROMETHORPHAN-GUAIFENESIN 65846478057 No Longer Active Carlton Hu MD Active TUSSIONEX PENNKINETIC ER 10-8 MG/5ML ORAL SUSPENSION E XTENDED RELEASE 5ml po q12hr PRN Cough HYDROCOD POLST-CHLORPHEN POLST 5 2496527418 No Longer Active Carlton Hu MD Active POTASSIUM CHLORIDE ER 20 MEQ ORAL TABLET EXTENDED RELE ASE Take 1 by mouth 4 times daily for 7 days POTASSIUM CHLORIDE 92670068360 No Longer Active Carlton Hu MD Active ZITHROMAX 250 MG ORAL TABLET 2 po today, then 1 po q days 2-5 14/09/04 AZITHROMYCIN 60890043294 No Longer Active Elise Garcia APRN Active TUSSIONEX PENNKINETIC ER 10-8 MG/5ML ORAL SUSPENSION E XTENDED RELEASE 5 ml twice a day as needed for cough HYDROCOD POLST-CHLORPH EN POLST 94826330732 No Longer Active Elise Garcia APRN Active MONTELUKAST SODIUM 10 MG ORAL TABLET 1 po daily for Allergy MONTELUKAST SODIUM 93469535552 Active Carlton Hu MD Ac tive TUSSIONEX PENNKINETIC ER 10-8 MG/5ML ORAL SUSPENSION E XTENDED RELEASE 5ml po q12hr PRN Cough HYDROCOD POLST-CHLORPHEN POLST 5 5376788677 No Longer Active Hugo Restrepo MD Active GABAPENTIN 100 MG ORAL CAPSULE 1 po BID for fibromyalgia GABAPENTIN 56537796174 Active Carlton Hu MD Active LYRICA 100 MG ORAL CAPSULE Take 1 tab po BID for fibromyalgia 20 11/08/21 PREGABALIN 80337305012 No Longer Active Elise Garcia [employer] A ctive PREDNISONE 20 MG ORAL TABLET 2 tabs daily for 3 days, 1 tab daily for 3 days, 1/2 tab daily for 2 days PREDNISONE 93384472547 No Longer Active Jillina Frazell [employer] Active TUSSIONEX PENNKINETIC ER 10-8 MG/5ML ORAL SUSPENSION E XTENDED RELEASE 5 mL PO q 12 hrs PRN cough HYDROCOD POLST-CHLORPHEN POLST 518453 37170 No Longer Active Jillina Frazell [employer] Active FLUTICASONE PROPIONATE 50 MCG/ACT NASAL SUSPENSION 2 s prays each nostril daily until bottle is empty FLUTICASONE PROPIONATE 048921092 99 No Longer Active Jillina Frazell [employer] Active ASMANEX 60 METERED DOSES 220 MCG/INH INHALATION AEROSO L POWDER BREATH ACTIVATED 1 puff bid with rinse after MOMETASONE FUROATE 7818671 4102 No Longer Active Jillina Frazell [employer] Active ZITHROMAX Z-REYNA 250 MG ORAL TABLET 2 today, then 1 daily for 4 d ays AZITHROMYCIN 58321631751 No Longer Active Elise Garcia [employer] Active TUSSIONEX PENNKINETIC ER 10-8 MG/5ML ORAL SUSPENSION E XTENDED RELEASE 5ml po q12hr PRN Cough HYDROCOD POLST-CHLORPHEN POLST 5 7899475952 No Longer Active Elise Garcia [employer] Active PREDNISONE 20 MG ORAL TABLET 2 tabs daily for 3 days, 1 tab daily for 3 days, 1/2 tab daily for 2 days PREDNISONE 84913638631 No Longer Active Jillina Frazell [employer] Active AMOXICILLIN 500 MG ORAL CAPSULE 2 po BID x 10 days 201 09/29/08 AMOXICILLIN 42121926372 No Longer Active Jillina Frazell [employer] Act nael SINGULAIR 10 MG ORAL TABLET 1 po qday for allergies 20 14/01/12 MONTELUKAST SODIUM 46563752214 No Longer Active Carlton Hu MD Active LEVAQUIN 500 MG ORAL TABLET 1 tablet by mouth daily 20 13/09/24 LEVOFLOXACIN 40704549105 No Longer Active Carlton Hu MD Acti ve FLUTICASONE PROPIONATE 50 MCG/ACT NASAL SUSPENSION 2 s prays each nostril daily for 2 weeks, then 1 spray each nostril daily. FLUTICASONE PROPIONATE 90351103537 Active Elise Arell [employer] Active ZITHROMAX 250 MG ORAL TABLET 2 po today, then 1 po q days 2-5 20 13/08/10 AZITHROMYCIN 74445992115 No Longer Active Elise Garcia APRN Active XANAX 0.5 MG ORAL TABLET one tablet by mouth daily prn anxiety 2015 ALPRAZOLAM 45708794666 Active ALFREDO Holly Active CYMBALTA 30 MG ORAL CAPSULE DELAYED RELEASE PARTICLES 1 cap by mouth daily for depression DULOXETINE HCL 04045747587 Active Carlton beltrán MD Active CEFDINIR 300 MG ORAL CAPSULE 1 po BID x 10 days CEFDINIR 04884745199 No Longer Active Carlton Hu MD Active ZOCOR 40 MG ORAL TABLET 1 tab by mouth daily SI MVASTATIN 25233222791 No Longer Active Carlton Hu MD Active CYCLOBENZAPRINE HCL 10 MG ORAL TABLET 1 tablet by mouth BID prn had pain CYCLOBENZAPRINE HCL 89355871897 No Longer Active Jayden Hu MD Active LEVOFLOXACIN 500 MG ORAL TABLET 1 tab PO daily x 10 days LEVOFLOXACIN 45778384498 No Longer Active Carlton Hu MD Acti ve PREDNISONE 20 MG ORAL TABLET 3 tab PO qd x 2d, 2 tab P O qd x 2d, 1 tab PO qd x 2d, 1/2 tab PO qd x 2d PREDNISONE 30542454096 No Lo nger Active Carlton Hu MD Active FLUTICASONE PROPIONATE 50 MCG/ACT NASAL SUSPENSION 1 t o 2 sprays each nostril daily FLUTICASONE PROPIONATE 29388920662 No Longer Ac tive Blaine HERNANDEZ Active CHERATUSSIN AC 100-10 MG/5ML ORAL SYRUP 1 tsp by mouth every 4 hours as needed for cough GUAIFENESIN-CODEINE 04665669163 No Longe r Active Blaine HERNANDEZ Active PROMETHAZINE-CODEINE 6.25-10 MG/5ML ORAL SYRUP 1 tsp b y mouth every 6 hours if needed for cough PROMETHAZINE-CODEINE 22831824378 No Longer Active Blaine HERNANDEZ Active CHERATUSSIN AC 100-10 MG/5ML ORAL SYRUP 1 tsp by mouth every 4 hours as needed for cough GUAIFENESIN-CODEINE 41669354120 No Longe r Active Blaine HERNANDEZ Active ZITHROMAX Z-REYNA 250 MG ORAL TABLET 2 today, then 1 daily for 4 d ays AZITHROMYCIN 68700980822 No Longer Active Columba Raida Act nael ZITHROMAX 250 MG ORAL TABLET 2 po today, then 1 po q days 2-5 20 14/03/21 AZITHROMYCIN 58281753422 No Longer Active Carlton Hu MD Active ZITHROMAX Z-REYNA 250 MG ORAL TABLET 2 today, then 1 daily for 4 d ays AZITHROMYCIN 05695594451 No Longer Active Columba Raida Act nael AUGMENTIN 875-125 MG ORAL TABLET 1 po BID x 10 days 13/01/20 AMOXICILLIN-POT CLAVULANATE 32318879335 No Longer Active Diya De Guzman APRN Active ZITHROMAX 250 MG ORAL TABLET 2 po today, then 1 po q days 2-5 20 12/08/14 AZITHROMYCIN 24441455424 No Longer Active Carlton Hu MD Active TRAMADOL HCL 50 MG ORAL TABLET 1 po tid with ES Tylenol TRAMADOL HCL 63265711229 Active ALFREDO Holly Active PREMARIN 0.625 MG ORAL TABLET TAKE 1 TAB BY MOUTH DAILY ESTROGENS CONJUGATED 73017010459 No Longer Active Ridge Bess DO A ctive CYMBALTA 30 MG ORAL CAPSULE DELAYED RELEASE PARTICLES 1 cap by mouth daily DULOXETINE HCL 26930036571 No Longer Active Ridge tam DO Active AMOXICILLIN 500 MG ORAL CAPSULE 1 tab by mouth 3 times daily x 10 days AMOXICILLIN 89647570862 No Longer Active Carlton bustamante MD Active AMOXICILLIN 500 MG ORAL CAPSULE 1 tab by mouth 3 times daily x 10 days AMOXICILLIN 58770006027 No Longer Active Carlton bustamante MD Active PROMETHAZINE-CODEINE 6.25-10 MG/5ML ORAL SYRUP 1 tsp b y mouth every 8 hours prn cough PROMETHAZINE-CODEINE 67611067445 No Longer Acti ve Carlton Hu MD Active MEDROL 4 MG ORAL TABLET THERAPY PACK 6 pills x 1 day, then 5 pills x 1 day then 4 pills x 1 day, then 3 pills x 1 day, then 2 pills x 1 day, then 1 pill x 1 day, then stop METHYLPREDNISOLONE 25131628506 No Long er Active Perez Mora MD Active AZITHROMYCIN 250 MG ORAL TABLET 2 po qd x 1 day, then 1 po q d x 4 days AZITHROMYCIN 94634188015 No Longer Active Perez Ambriz MD Active SYMBICORT 160-4.5 MCG/ACT INHALATION AEROSOL 2 puffs bid wit h rinse after BUDESONIDE-FORMOTEROL FUMARATE 67466209214 N o Longer Active Perez Mora MD Active LYRICA 75 MG ORAL CAPSULE TAKE 1 CAPSULE BY MOUTH TWICE DAILY PREGABALIN 30948189495 No Longer Active Carlton Hu MD Acti ve TOPAMAX 25 MG ORAL TABLET 1 qHS x 1 week, then 1 BID x 1 week, then 1 qAM and 2 qHS x 1 week, then 2 BID (migraine prevention) T OPIRAMATE 68546539368 No Longer Active Jerica FUENTES Active TOPAMAX 50 MG ORAL TABLET take 1 tab po BID for migraines. 07/02 TOPIRAMATE 81064928142 No Longer Active Jerica FUENTES Active TOPAMAX 100 MG ORAL TABLET Take 1 tablet po bid TO PIRAMATE 06665099201 Active Carlton Hu MD Active TRIAMCINOLONE ACETONIDE 0.1 % EXTERNAL CREAM apply three roger es daily prn rash TRIAMCINOLONE ACETONIDE 35065738134 No Longer Active Carlton Hu MD Active PAXIL 40 MG ORAL TABLET take 1 tab po qday for depression 0 PAROXETINE HCL 00075079497 Active ALFREDO Holly Active CHERATUSSIN AC 100-10 MG/5ML ORAL SYRUP 5ml po q6hr PRN Cough 20 13/04/14 GUAIFENESIN-CODEINE 88209251076 No Longer Active Carlton Hu MD Active MEDROL 4 MG ORAL TABLET THERAPY PACK 6 tabs on day 1, 5 tabs on day 2, 4 tabs on day 3, 3 tabs on day 4, 2 tabs on day 5, 1 tab on day 6 2013 METHYLPREDNISOLONE 98645072959 No Longer Active Perez Mora MD Active AZITHROMYCIN 250 MG ORAL TABLET 2 po qd x 1 day, then 1 po q d x 4 days AZITHROMYCIN 00249321032 No Longer Active Perez Ambriz MD Active PROPRANOLOL HCL 60 MG ORAL TABLET 1 PO Q D PROPRANOLOL HCL 28129096847 No Longer Active Perez Mora MD Activ e CHERATUSSIN AC 100-10 MG/5ML ORAL SYRUP take one tsp po Q 6h ours prn cough GUAIFENESIN-CODEINE 50534764199 No Longer Active Zia Mora MD Active AUGMENTIN 875-125 MG ORAL TABLET 1 tab by mouth twice daily with food AMOXICILLIN-POT CLAVULANATE 40136797967 No Longer Act nael Mora MD Active CHERATUSSIN AC 100-10 MG/5ML ORAL SYRUP 1 tsp by mouth every 4 hours as needed for cough GUAIFENESIN-CODEINE 06044903368 No Longe r Active Hugo Restrepo MD Active ACETAMINOPHEN-CODEINE #3 300-30 MG ORAL TABLET 1 PO Q 4-6 HRS ID N PAIN ACETAMINOPHEN-CODEINE 82214062181 No Longer Active Hugo Restrepo MD Active LEVAQUIN 500 MG ORAL TABLET take one po QD LEVO FLOXACIN 84133410810 No Longer Active Griffin HERNANDEZ Active PREDNISONE 20 MG ORAL TABLET Take 3 tabs daily for 3 d ays, 2 tabs daily for 3 days, 1 tab daily for 3 days, 1/2 tab daily for 3 days 11/07 PREDNISONE 09420780232 No Longer Active Carlton Hu MD Acti ve AVELOX 400 MG ORAL TABLET 1 tab by mouth daily MOXIFLOXACIN HCL 89791763978 No Longer Active Carlton Hu MD Active CHERATUSSIN AC 100-10 MG/5ML ORAL SYRUP 1 tsp by mouth every 4 hours as needed for cough GUAIFENESIN-CODEINE 64811979616 No Longe r Active Hugo Restrepo MD Active AVELOX 400 MG ORAL TABLET 1 tab by mouth daily MOXIFLOXACIN HCL 88461379286 No Longer Active Marcy De La Rosa MD PhD Active TERBINAFINE HCL 250 MG ORAL TABLET 1 qDay T ERBINAFINE HCL 11341089547 No Longer Active Marcy De La Rosa MD PhD Active CHERATUSSIN AC 100-10 MG/5ML ORAL SYRUP 1 tsp by mouth every 4 hours as needed for cough GUAIFENESIN-CODEINE 12728708939 No Longe r Active Marcy De La Rosa MD PhD Active AVELOX 400 MG ORAL TABLET 1 tab by mouth daily MOXIFLOXACIN HCL 16760723682 No Longer Active Marcy C Madril MD PhD Active HYDROCODONE-ACETAMINOPHEN 5-325 MG ORAL TABLET 1 po q 6hr PRN co ugh HYDROCODONE-ACETAMINOPHEN 81691196329 No Longer Active Marcy De La Rosa MD PhD Active PREDNISONE 20 MG ORAL TABLET 2 tabs daily for 3 days, 1 tab daily for 3 days, 1/2 tab daily for 2 days PREDNISONE 01242803701 No Longer Active Carlton Hu MD Active CEFDINIR 300 MG ORAL CAPSULE by mouth twice a day 2011 CEFDINIR 56518453569 No Longer Active Carlton Hu MD Acti ve HYDROCHLOROTHIAZIDE 25 MG ORAL TABLET 1 TAB PO DAILY HYDROCHLOROTHIAZIDE 72330407137 Active ALFREDO Holly Ac tive ACETAMINOPHEN-CODEINE #3 300-30 MG ORAL TABLET 1 tablet po q 4-6 hrs prn pain ACETAMINOPHEN-CODEINE 31233665714 No Longer Active Ridge Bess DO Active ZITHROMAX 250 MG ORAL TABLET 2 po today, then 1 po q days 2-5 20 03/07/07 AZITHROMYCIN 45352335961 No Longer Active Carlton Hu MD Active CHERATUSSIN AC 100-10 MG/5ML ORAL SYRUP take 1 tsp po q4-6 h ours prn cough GUAIFENESIN-CODEINE 53464910374 No Longer Active Jaydne Hu MD Active ACETAMINOPHEN-CODEINE #3 300-30 MG ORAL TABLET 1 PO Q 4-6 HR PRN PAIN ACETAMINOPHEN-CODEINE 09627425753 No Longer Active Da vid Lyndsay Hu MD Active LORTAB 7.5-500 MG/15ML ORAL ELIXIR 7.5 ml po q 4 hour prn cough HYDROCODONE-ACETAMINOPHEN 46217221054 No Longer Active Carlton Hu MD Active PREDNISONE 20 MG ORAL TABLET 1 po bid 3 days, then 1 po q day 3 days PREDNISONE 28500223929 No Longer Active Carlton Hu MD Active CEFDINIR 300 MG ORAL CAPSULE by mouth twice a day 2011 CEFDINIR 39024643023 No Longer Active Carlton Hu MD Acti ve CEFDINIR 300 MG ORAL CAPSULE by mouth twice a day 2010 CEFDINIR 69490410037 No Longer Active Carlton Hu MD Acti ve CEFDINIR 300 MG ORAL CAPSULE by mouth twice a day 2010 CEFDINIR 14169790852 No Longer Active Carlton Hu MD Acti ve TESSALON PERLES 100 MG ORAL CAPSULE 1 tablet by mouth 3 times daily as needed for cough BENZONATATE 76801636463 No Longer Active Carlton Hu MD Active CEFDINIR 300 MG ORAL CAPSULE by mouth twice a day 2010 CEFDINIR 07159002862 No Longer Active Carlton Hu MD Acti ve ZITHROMAX Z-REYNA 250 MG ORAL TABLET 2 today, then 1 daily for 4 d ays AZITHROMYCIN 48849012953 No Longer Active Hugo Restrepo MD Active TESSALON PERLES 100 MG ORAL CAPSULE 1 tablet by mouth 3 times daily as needed for cough TESSALON PERLES 100 MG ORAL CAPSULE 35480 7 BENZONATATE Inactive PREDNISONE 20 MG ORAL TABLET 1 po bid 3 days, then 1 po q day 3 days PREDNISONE 20 MG ORAL TABLET 700851 PREDNISONE [place] ctive LORTAB 7.5-500 MG/15ML ORAL ELIXIR 7.5 [...] cough CHERATUSSIN AC 100-10 MG/5ML ORAL SYRUP 783811 GUAIFENESIN-CODEINE Inactive ACETAMINOPHEN-CODEINE #3 300-30 MG ORAL TABLET 1 tablet po q 4-6 hrs prn pain ACETAMINOPHEN-CODEINE #3 300-30 MG ORAL TABLET ACETAMINOPHEN-CODEINE Inactive HYDROCODONE-ACETAMINOPHEN 5-325 MG ORAL TABLET 1 po q 6hr PRN co ugh HYDROCODONE-ACETAMINOPHEN 5-325 MG ORAL TABLET 611637 HYDROCODONE-ACETAMINOPHEN Inactive AVELOX 400 MG ORAL TABLET 1 tab by mouth daily AVELOX 400 MG ORAL TABLET 514341 MOXIFLOXACIN HCL Inactive CHERATUSSIN AC 100-10 MG/5ML ORAL SYRUP 1 tsp by mouth every 4 hours as needed for cough CHERATUSSIN AC 100-10 MG/5ML ORAL SYRUP 9 42996 GUAIFENESIN-CODEINE Inactive TERBINAFINE HCL 250 MG ORAL TABLET 1 qDay 07/08 TERBINAFINE HCL 250 MG ORAL TABLET 362560 TERBINAFINE HCL Inactive CHERATUSSIN AC 100-10 MG/5ML ORAL SYRUP 1 tsp by mouth every 4 hours as needed for cough CHERATUSSIN AC 100-10 MG/5ML ORAL SYRUP 9 99809 GUAIFENESIN-CODEINE Inactive ACETAMINOPHEN-CODEINE #3 300-30 MG ORAL TABLET 1 PO Q 4-6 HRS ID N PAIN ACETAMINOPHEN-CODEINE #3 300-30 MG ORAL TABLET ACETAMINOPHEN-CODEINE Inactive CHERATUSSIN AC 100-10 MG/5ML ORAL SYRUP 1 tsp by mouth every 4 hours as needed for cough CHERATUSSIN AC 100-10 MG/5ML ORAL SYRUP 9 15675 GUAIFENESIN-CODEINE Inactive AUGMENTIN 875-125 MG ORAL TABLET 1 tab by mouth twice daily with food AUGMENTIN 875-125 MG ORAL TABLET 886520 AMOXICIL MADELINE-POT CLAVULANATE Inactive CHERATUSSIN AC 100-10 MG/5ML ORAL SYRUP take one tsp po Q 6h ours prn cough CHERATUSSIN AC 100-10 MG/5ML ORAL SYRUP 195352 GUAIFENESIN-CODEINE Inactive PROPRANOLOL HCL 60 MG ORAL TABLET 1 PO Q D PROPRANOLOL HCL 60 MG ORAL TABLET 908406 PROPRANOLOL HCL Inactive TOPAMAX 50 MG ORAL TABLET take 1 tab po BID for migraines. 07/02 TOPAMAX 50 MG ORAL TABLET 509057 TOPIRAMATE Inacti ve TOPAMAX 25 MG ORAL TABLET 1 qHS x 1 week, then 1 BID x 1 week, then 1 qAM and 2 qHS x 1 week, then 2 BID (migraine prevention) TOPAMAX 25 MG ORAL TABLET 414258 TOPIRAMATE Inactive LYRICA 75 MG ORAL CAPSULE TAKE 1 CAPSULE BY MOUTH TWICE DAILY LYRICA 75 MG ORAL CAPSULE PREGABALIN Inactive SYMBICORT 160-4.5 MCG/ACT INHALATION AEROSOL 2 puffs bid wit h rinse after SYMBICORT 160-4.5 MCG/ACT INHALATION AEROSOL BUDESONIDE- FORMOTEROL FUMARATE Inactive PROMETHAZINE-CODEINE 6.25-10 MG/5ML ORAL SYRUP 1 tsp b y mouth every 8 hours prn cough PROMETHAZINE-CODEINE 6.25-10 MG/ 5ML ORAL SYRUP 749408 PROMETHAZINE-CODEINE Inactive CYMBALTA 30 MG ORAL CAPSULE DELAYED RELEASE PARTICLES 1 cap by mouth daily CYMBALTA 30 MG ORAL CAPSULE DELAYED RELE ASE PARTICLES 433566 DULOXETINE HCL Inactive PREMARIN 0.625 MG ORAL TABLET TAKE 1 TAB BY MOUTH DAILY PREMARIN 0.625 MG ORAL TABLET ESTROGENS CONJUGATED Inactive CHERATUSSIN AC 100-10 MG/5ML ORAL SYRUP 1 tsp by mouth every 4 hours as needed for cough CHERATUSSIN AC 100-10 MG/5ML ORAL SYRUP 9 24356 GUAIFENESIN-CODEINE Inactive PROMETHAZINE-CODEINE 6.25-10 MG/5ML ORAL SYRUP 1 tsp b y mouth every 6 hours if needed for cough PROMETHAZINE-CODEINE 6.25-10 MG/5ML ORAL SYRUP 120381 PROMETHAZINE-CODEINE Inactive CHERATUSSIN AC 100-10 MG/5ML ORAL SYRUP 1 tsp by mouth every 4 hours as needed for cough CHERATUSSIN AC 100-10 MG/5ML ORAL SYRUP 9 29265 GUAIFENESIN-CODEINE Inactive FLUTICASONE PROPIONATE 50 MCG/ACT NASAL SUSPENSION 1 t o 2 sprays each nostril daily FLUTICASONE PROPIONATE 50 MCG/AC T NASAL SUSPENSION 1046444 FLUTICASONE PROPIONATE Inactive PREDNISONE 20 MG ORAL TABLET 3 tab PO qd x 2d, 2 tab P O qd x 2d, 1 tab PO qd x 2d, 1/2 tab PO qd x 2d PREDNISONE 20 MG ORAL TAB LET 052943 PREDNISONE Inactive LEVOFLOXACIN 500 MG ORAL TABLET 1 tab PO daily x 10 days LEVOFLOXACIN 500 MG ORAL TABLET 394497 LEVOFLOXACIN Inactive CYCLOBENZAPRINE HCL 10 MG ORAL TABLET 1 tablet by mouth BID prn had pain CYCLOBENZAPRINE HCL 10 MG ORAL TABLET 160784 CYCLOBENZAPRINE HCL Inactive ZOCOR 40 MG ORAL TABLET 1 tab by mouth daily 4 ZOCOR 40 MG ORAL TABLET 146611 SIMVASTATIN Inactive TUSSIONEX PENNKINETIC ER 10-8 MG/5ML [...] FLUTICASONE PROPIO EFE 50 MCG/ACT NASAL SUSPENSION 9039604 FLUTICASONE PROPIONATE Inactive TUSSIONEX PENNKINETIC ER 10-8 [...] three days PREDNISONE 20 MG ORAL TABLET 654696 PREDNIS ONE Inactive PROAIR HFA 108 (90 BASE) MCG/ACT INHALATION AEROSOL SO LUTION 2 puffs four times a day as needed PROAIR HFA 108 (90 B ASE) MCG/ACT INHALATION AEROSOL SOLUTION ALBUTEROL SULFATE Inactive ZITHROMAX Z-ERYNA 250 MG ORAL TABLET 2 today, then 1 daily for 4 d ays ZITHROMAX Z-REYNA 250 MG ORAL TABLET 225290 AZITHROMYCIN Inactive CEFDINIR 300 MG ORAL CAPSULE by mouth twice a day 2010 CEFDINIR 300 MG ORAL CAPSULE 688859 CEFDINIR Inactive CEFDINIR 300 MG ORAL CAPSULE by mouth twice a day 2010 CEFDINIR 300 MG ORAL CAPSULE 781465 CEFDINIR Inactive CEFDINIR 300 MG ORAL CAPSULE by mouth twice a day 2010 CEFDINIR 300 MG ORAL CAPSULE 148859 CEFDINIR Inactive CEFDINIR 300 MG ORAL CAPSULE by mouth twice a day 2011 CEFDINIR 300 MG ORAL CAPSULE 942264 CEFDINIR Inactive ZITHROMAX 250 MG ORAL TABLET 2 po today, then 1 po q days 2-5 20 03/07/07 ZITHROMAX 250 MG ORAL TABLET 433231 AZITHROMYCIN [place] ctive CEFDINIR 300 MG ORAL CAPSULE by mouth twice a day 2011 CEFDINIR 300 MG ORAL CAPSULE 684250 CEFDINIR Inactive PREDNISONE 20 MG ORAL TABLET 2 tabs daily for 3 days, 1 tab daily for 3 days, 1/2 tab daily for 2 days PREDNISONE 20 MG ORAL T ABLET 966611 PREDNISONE Inactive AVELOX 400 MG ORAL TABLET 1 tab by mouth daily AVELOX 400 MG ORAL TABLET 940361 MOXIFLOXACIN HCL Inactive AVELOX 400 MG ORAL TABLET 1 tab by mouth daily AVELOX 400 MG ORAL TABLET 119189 MOXIFLOXACIN HCL Inactive PREDNISONE 20 MG ORAL TABLET Take 3 tabs daily for 3 d ays, 2 tabs daily for 3 days, 1 tab daily for 3 days, 1/2 tab daily for 3 days 11/07 PREDNISONE 20 MG ORAL TABLET 386831 PREDNISONE Inactive LEVAQUIN 500 MG ORAL TABLET take one po QD LEVAQUIN 500 MG ORAL TABLET 194668 LEVOFLOXACIN Inactive AZITHROMYCIN 250 MG ORAL TABLET 2 po qd x 1 day, then 1 po q d x 4 days AZITHROMYCIN 250 MG ORAL TABLET 259985 AZITHROMY GIOVANNI Inactive MEDROL 4 MG ORAL TABLET THERAPY PACK 6 tabs on day 1, 5 tabs on day 2, 4 tabs on day 3, 3 tabs on day 4, 2 tabs on day 5, 1 tab on day 6 2013 MEDROL 4 MG ORAL TABLET THERAPY PACK 762738 METHYLPREDNISOLONE [place] ctive CHERATUSSIN AC 100-10 MG/5ML ORAL SYRUP 5ml po q6hr PRN Cough 20 13/04/14 CHERATUSSIN AC 100-10 MG/5ML ORAL SYRUP 550835 GUAIFENE SIN-CODEINE Inactive TRIAMCINOLONE ACETONIDE 0.1 % EXTERNAL CREAM apply three roger es daily prn rash TRIAMCINOLONE ACETONIDE 0.1 % EXTERNAL CREAM 101 4314 TRIAMCINOLONE ACETONIDE Inactive AZITHROMYCIN 250 MG ORAL TABLET 2 po qd x 1 day, then 1 po q d x 4 days AZITHROMYCIN 250 MG ORAL TABLET 803858 AZITHROMY GIOVANNI Inactive MEDROL 4 MG ORAL TABLET THERAPY PACK 6 pills x 1 day, then 5 pills x 1 day then 4 pills x 1 day, then 3 pills x 1 day, then 2 pills x 1 day, then 1 pill x 1 day, then stop MEDROL 4 MG ORAL TABLET THERAPY PACK 580281 METHYLPREDNISOLONE Inactive AMOXICILLIN 500 MG ORAL CAPSULE 1 tab by mouth 3 times daily x 10 days AMOXICILLIN 500 MG ORAL CAPSULE 537282 AMOXICILL IN Inactive AMOXICILLIN 500 MG ORAL CAPSULE 1 tab by mouth 3 times daily x 10 days AMOXICILLIN 500 MG ORAL CAPSULE 762189 AMOXICILL IN Inactive ZITHROMAX 250 MG ORAL TABLET 2 po today, then 1 po q days 2-5 20 12/08/14 ZITHROMAX 250 MG ORAL TABLET 043969 AZITHROMYCIN [place] ctive AUGMENTIN 875-125 MG ORAL TABLET 1 po BID x 10 days 20 13/01/20 AUGMENTIN 875-125 MG ORAL TABLET 726095 AMOXICILLIN-POT CLAVULANATE Inactive ZITHROMAX Z-REYNA 250 MG ORAL TABLET 2 today, then 1 daily for 4 d ays ZITHROMAX Z-REYNA 250 MG ORAL TABLET 080112 AZITHROMYCIN Inactive ZITHROMAX 250 MG ORAL TABLET 2 po today, then 1 po q days 2-5 20 14/03/21 ZITHROMAX 250 MG ORAL TABLET 439794 AZITHROMYCIN Greer ctive ZITHROMAX Z-REYNA 250 MG ORAL TABLET 2 today, then 1 daily for 4 d ays ZITHROMAX Z-REYNA 250 MG ORAL TABLET 374304 AZITHROMYCIN Inactive CEFDINIR 300 MG ORAL CAPSULE 1 po BID x 10 days 06/21 CEFDINIR 300 MG ORAL CAPSULE 907536 CEFDINIR Inactive ZITHROMAX 250 MG ORAL TABLET 2 po today, then 1 po q days 2-5 20 13/08/10 ZITHROMAX 250 MG ORAL TABLET 355192 AZITHROMYCIN Greer ctive LEVAQUIN 500 MG ORAL TABLET 1 tablet by mouth daily 20 13/09/24 LEVAQUIN 500 MG ORAL TABLET 294144 LEVOFLOXACIN Inactive SINGULAIR 10 MG ORAL TABLET 1 po qday for allergies 20 14/01/12 SINGULAIR 10 MG ORAL TABLET 516252 MONTELUKAST SODIUM Inactive AMOXICILLIN 500 MG ORAL CAPSULE 2 po BID x 10 days 201 09/29/08 AMOXICILLIN 500 MG ORAL CAPSULE 573943 AMOXICILLIN Inactive PREDNISONE 20 MG ORAL TABLET 2 tabs daily for 3 days, 1 tab daily for 3 days, 1/2 tab daily for 2 days PREDNISONE 20 MG ORAL T ABLET 625145 PREDNISONE Inactive ZITHROMAX Z-REYNA 250 MG ORAL TABLET 2 today, then 1 daily for 4 d ays ZITHROMAX Z-REYNA 250 MG ORAL TABLET 993635 AZITHROMYCIN Inactive PREDNISONE 20 MG ORAL TABLET 2 tabs daily for 3 days, 1 tab daily for 3 days, 1/2 tab daily for 2 days PREDNISONE 20 MG ORAL T ABLET 932082 PREDNISONE Inactive ZITHROMAX 250 MG ORAL TABLET 2 po today, then 1 po q days 2-5 20 14/09/04 ZITHROMAX 250 MG ORAL TABLET 768219 AZITHROMYCIN [place] ctive AMOXICILLIN 500 MG ORAL CAPSULE 1 cap by mouth three times a day AMOXICILLIN 500 MG ORAL CAPSULE 892691 AMOXICILLIN Inactive TERBINAFINE HCL 250 MG ORAL TABLET 1 qDay for nail fungus 7 TERBINAFINE HCL 250 MG ORAL TABLET 971474 TERBINAFINE HCL Inact nael AUGMENTIN 875-125 MG ORAL TABLET 1 po BID x 10 days 16/03/22 AUGMENTIN 875-125 MG ORAL TABLET 217278 AMOXICILLIN-POT CLAVULANATE Inactive PREDNISONE 20 MG ORAL TABLET 2 po qd x 5 days PREDNISONE 20 MG ORAL TABLET 245213 PREDNISONE Inactive AZITHROMYCIN 250 MG ORAL TABLET 2 po qd x 1 day, then 1 po q d x 4 days AZITHROMYCIN 250 MG ORAL TABLET 058045 AZITHROMY GIOVANNI Inactive Vital Signs Date Name [...] - Chem istry sodium, serum 139 mmol/L [phone]/03/19 potassium, serum 3.6 mmol/L 3.5-5.2 chloride, serum 100 mmol/L 98-107 carbon dioxide, venous blood 30.3 mmol/L 21.0-32 .0 blood glucose 101 mg/dL 65-110 calcium, serum 9.4 mg/dL 8.5-10.1 urea nitrogen, blood 10 mg/dL 7-18 creatinine, serum 0.96 mg/dL 0.60-1.30 sodium, serum 139 mmol/L 968-948 9551/10/12 potassium, serum 3.8 mmol/L 3.5-5.2 chloride, serum 102 mmol/L 98-107 carbon dioxide, venous blood 29.4 mmol/L 21.0-32 .0 blood glucose 103 mg/dL 65-95 calcium, serum 8.8 mg/dL 8.5-10.1 urea nitrogen, blood 10 mg/dL 7-18 creatinine, serum 0.97 mg/dL 0.60-1.30 Estimated Glomerular Filtration Rate (calc) 62 (?) mL/min/1.73m2 = OR > 60 mL/min Encounters Code Encounter Date Provider Facility CPT-78008 [id number] Vst-Est Level III 11:12:16 CDT Br tami Bess DO [facility] CPT-71928 Level 3 Est. Patient 11:34:49 PATIENT FINANCIAL REPRESENTATIVE Perez Mora MD [facility] CPT-60661 Level 4 Est. Patient 09:51:32 PATIENT FINANCIAL REPRESENTATIVE Carlton rich MD [facility] CPT-91742 Level 3 Est. Patient 10:26:00 PATIENT FINANCIAL REPRESENTATIVE Elise stephenson APRN [facility] CPT-63349 Level 3 Est. Patient 13:35:41 PATIENT FINANCIAL REPRESENTATIVE Carlton rich MD [facility] CPT-98061 Level 3 Est. Patient 10:03:52 PATIENT FINANCIAL REPRESENTATIVE Carlton rich MD [facility] CPT-24048 Level 3 Est. Patient 12:17:50 CDT Hugo Restrepo MD [facility] CPT-10261 Level 3 Est. Patient 13:42:38 CDT Elise Are ll [facility] CPT-11077 Level 3 Est. Patient 13:23:51 CDT Diya cobian [facility] CPT-68047 Level 3 Est. Patient 14:22:19 PATIENT FINANCIAL REPRESENTATIVE Diya cobian [facility] CPT-19342 Level 3 Est. Patient 10:11:46 CDT Carlton rich MD [facility] CPT-27386 Level 3 Est. Patient 17:29:43 CDT [facility]ise [facility] CPT-19563 Level 3 Est. Patient 11:58:06 CDT Elise Are [facility] CPT-44429 Level 4 Est. Patient 14:36:51 CDT Carlton rich MD [facility] CPT-17942 Level 3 Est. Patient 18:16:00 PATIENT FINANCIAL REPRESENTATIVE Blaine HERNANDEZ [facility] CPT-29367 Level 3 Est. Patient 09:45:49 PATIENT FINANCIAL REPRESENTATIVE Carlton rich MD [facility] CPT-69796 Level 3 Est. Patient 13:19:20 CDT Carlton rich MD [facility] CPT-03147 Level 3 Est. Patient 13:06:43 CDT Ridge tam DO [facility] CPT-07792 Level 3 Est. Patient 10:03:07 CDT Perez Mora MD [facility] CPT-53792 Level 3 Est. Patient 19:50:35 PATIENT FINANCIAL REPRESENTATIVE Carlton rich MD [facility]-23116 Level 4 Est. Patient 18:05:01 PATIENT FINANCIAL REPRESENTATIVE Carlton rich MD [facility]-12236 Level 3 Est. Patient 10:45:55 PATIENT FINANCIAL REPRESENTATIVE Hugo Restrepo MD [facility]-99734 Level 3 Est. Patient 14:12:49 CDT Griffin HERNANDEZ [facility]-41164 Level 3 Est. Patient 17:37:24 CDT Carlton rich MD [facility]-81320 Level 3 Est. Patient 16:51:54 CDT Carlton rich MD [facility]-35580 Level 3 Est. Patient 12:18:11 CDT Hugo Restrepo MD [facility]-00265 Level 3 Est. Patient 11:30:25 CDT Marcy crisostomo MD PhD [facility]-66925 Level 3 Est. Patient 12:00:47 PATIENT FINANCIAL REPRESENTATIVE Carlton rich MD [facility]-66315 Level 3 Est. Patient 16:31:06 PATIENT FINANCIAL REPRESENTATIVE Carlton rich MD [facility]-30647 Level 3 Est. Patient 16:23:24 PATIENT FINANCIAL REPRESENTATIVE Ridge tam DO [facility]-59697 Level 3 Est. Patient 12:34:12 CDT Carlton rich MD [facility] CPT-28853 Level 2 Est. Patient 15:43:33 CDT Robi armstrong MD [facility]-88860 Level 4 Est. Patient 14:04:44 CDT Carlton rich MD [facility]-67756 Level 3 Est. Patient 05:47:59 CDT Ridge tam [facility]-03813 Level 3 Est. Patient 13:12:53 PATIENT FINANCIAL REPRESENTATIVE Carlton rich MD [facility] CPT-57885 Level 3 Est. Patient 14:26:53 CDT Hugo Restrepo MD [facility] Procedures Code Procedure Name Date Entry Date Standard Desc ription CPT-000 Give Appropriate Flu Vaccine 14:14:31 CDT 2 CPT-J1040 Depo Medrol 80 mg (Methyl Prednisolone A cetate) 10:42:44 CDT CPT-J1100 Decadron 8mg (Dexamethasone) 10:42:44 CDT 2 CPT-J0696 Rocephin 1gm Inj Solr 14:32:13 CDT CPT-J1020 Depo Medrol 60 mg (Methyl Prednisolone A cetate) 14:32:13 CDT CPT-J1100 Decadron 6mg (Dexamethasone) 14:32:13 CDT 2 CPT-95768 Hip bilat min 2V w AP pelvis 13:16:20 CDT CPT-52270 Pelvis only 13:07:33 CDT CPT-14834 Spec Collection and Handling Fee 11:25:12 C DT CPT-21870 Fluzone Quadrivalent Intramuscular Suspe nsion 0.5 ML 14:31:55 CDT CPT-27123 Abx/Therapy Injection 13:28:47 PATIENT FINANCIAL REPRESENTATIVE CPT-J2930 Solu Medrol 125 mg (Methyl Prednisolone Sodium Succinate) 12:00:47 PATIENT FINANCIAL REPRESENTATIVE CPT-24691 Venipuncture Draw Fee 11:33:31 CDT CPT-53114 EKG Trac and Interp 11:21:09 CDT CPT-85859 Chest 2V Frontal and Lat 11:21:09 CDT 12/15 CPT-10653 Venipuncture Draw Fee 08:02:34 CDT CPT-76546 Chest 2V Frontal and Lat 05:47:59 CDT 06/05
--- OUTSIDE RECORDS SUMMARY | 2019-10-08 09:29 | XMS REPORT | Clinical Summary ---
Author Author Caitlin, Juliana Martinez Organization [facility] Address Unknown Phone Unavailable Allergies, Adverse Reactions, [...] URI 465.9 Inactive Ridge Bess DO [place] upper respiratory infections of unspecified site Body [...] po q d x 4 days AZITHROMYCIN [id number] No Longer Active Ridge Bess DO Active PREDNISONE 20 MG ORAL TABLET two tabs by mouth today, then one tab by mouth days two and three and four PREDNISONE 74589566382 Active Lyndsay Mora MD Active PREDNISONE 20 MG ORAL TABLET 2 po qd x 5 days P REDNISONE 24920078960 No Longer Active Perez Mora MD Active PROAIR HFA 108 (90 BASE) MCG/ACT INHALATION AEROSOL SO LUTION 2 puffs four times a day as needed ALBUTEROL SULFATE 58216358700 No Long er Active Becky FUENTES Active ASPIRIN 81 MG ORAL TABLET 1 po qd ASPIRIN 94721050444 Active Carlton Hu MD Active PREDNISONE 20 MG ORAL TABLET 1 tab twice daily for 3 d ay, then one daily for three days PREDNISONE 06268205524 No Longer Active Carlton Hu MD Active AUGMENTIN 875-125 MG ORAL TABLET 1 po BID x 10 days 20 16/03/22 AMOXICILLIN-POT CLAVULANATE 27270036137 No Longer Active Elise Garcia APRN Active TERBINAFINE HCL 250 MG ORAL TABLET 1 qDay for nail fungus 7 TERBINAFINE HCL 50440725395 No Longer Active Carlton Hu MD A ctive TUSSIONEX PENNKINETIC ER 10-8 MG/5ML ORAL SUSPENSION E XTENDED RELEASE 5ml po q12hr PRN Cough HYDROCOD POLST-CHLORPHEN POLST 50114301487 Active Carlton Hu MD Active AMOXICILLIN 500 MG ORAL CAPSULE 1 cap by mouth three times a day AMOXICILLIN 29767681678 No Longer Active Carlton Hu MD Active ELMIRON 100 MG ORAL CAPSULE 2 tablets in the am and 1 tablet at hs PENTOSAN POLYSULFATE SODIUM 31273611458 No Longer Active Robert jade Hu MD Active MUCINEX D 60-600 MG ORAL TABLET EXTENDED RELEASE 12 HOUR 1 t ab po q am PSEUDOEPHEDRINE-GUAIFENESIN 60036469127 No Longer Act nael Carlton Hu MD Active MUCINEX DM MAXIMUM STRENGTH 60-1200 MG ORAL TABLET EXT ENDED RELEASE 12 HOUR 1 tab po q am DEXTROMETHORPHAN-GUAIFENESIN 48051855921 No Longer Active Carlton Hu MD Active TUSSIONEX PENNKINETIC ER 10-8 MG/5ML ORAL SUSPENSION E XTENDED RELEASE 5ml po q12hr PRN Cough HYDROCOD POLST-CHLORPHEN POLST 5 7752852016 No Longer Active Carlton Hu MD Active POTASSIUM CHLORIDE ER 20 MEQ ORAL TABLET EXTENDED RELE ASE Take 1 by mouth 4 times daily for 7 days POTASSIUM CHLORIDE 24376495098 No Longer Active Carlton Hu MD Active ZITHROMAX 250 MG ORAL TABLET 2 po today, then 1 po q days 2-5 14/09/04 AZITHROMYCIN 89077466461 No Longer Active Elise Garcia APRN Active TUSSIONEX PENNKINETIC ER 10-8 MG/5ML ORAL SUSPENSION E XTENDED RELEASE 5 ml twice a day as needed for cough HYDROCOD POLST-CHLORPH EN POLST 58450462768 No Longer Active Elise Garcia APRN Active MONTELUKAST SODIUM 10 MG ORAL TABLET 1 po daily for Allergy MONTELUKAST SODIUM 95435880664 Active Carlton Hu MD Ac tive TUSSIONEX PENNKINETIC ER 10-8 MG/5ML ORAL SUSPENSION E XTENDED RELEASE 5ml po q12hr PRN Cough HYDROCOD POLST-CHLORPHEN POLST 5 1420655206 No Longer Active Hugo Restrepo MD Active GABAPENTIN 100 MG ORAL CAPSULE 1 po BID for fibromyalgia GABAPENTIN 22210039961 Active Carlton Hu MD Active LYRICA 100 MG ORAL CAPSULE Take 1 tab po BID for fibromyalgia 20 11/08/21 PREGABALIN 28120346586 No Longer Active Elise Garcia [employer] TECH[employer]ICIAN A ctive PREDNISONE 20 MG ORAL TABLET 2 tabs daily for 3 days, 1 tab daily for 3 days, 1/2 tab daily for 2 days PREDNISONE 50273619835 No Longer Active Jillina Frazell [employer] TECHNICIAN Active TUSSIONEX PENNKINETIC ER 10-8 MG/5ML ORAL SUSPENSION E XTENDED RELEASE 5 mL PO q 12 hrs PRN cough HYDROCOD POLST-CHLORPHEN POLST 788644 11579 No Longer Active Jillina Frazell [employer] TECHNICIAN Active FLUTICASONE PROPIONATE 50 MCG/ACT NASAL SUSPENSION 2 s prays each nostril daily until bottle is empty FLUTICASONE PROPIONATE 808130283 99 No Longer Active Jillina Frazell [employer] TECHNICIAN Active ASMANEX 60 METERED DOSES 220 MCG/INH INHALATION AEROSO L POWDER BREATH ACTIVATED 1 puff bid with rinse after MOMETASONE FUROATE 6581268 4102 No Longer Active Jillina Frazell [employer] TECHNICIAN Active ZITHROMAX Z-REYNA 250 MG ORAL TABLET 2 today, then 1 daily for 4 d ays AZITHROMYCIN 62417182455 No Longer Active Elise Garcia [employer] TECHNICIAN Active TUSSIONEX PENNKINETIC ER 10-8 MG/5ML ORAL SUSPENSION E XTENDED RELEASE 5ml po q12hr PRN Cough HYDROCOD POLST-CHLORPHEN POLST 5 6038141650 No Longer Active Elise Garcia [employer] TECHNICIAN Active PREDNISONE 20 MG ORAL TABLET 2 tabs daily for 3 days, 1 tab daily for 3 days, 1/2 tab daily for 2 days PREDNISONE 55778094480 No Longer Active Jillina Frazell [employer] TECHNICIAN Active AMOXICILLIN 500 MG ORAL CAPSULE 2 po BID x 10 days 201 09/29/08 AMOXICILLIN 43497505045 No Longer Active Jillina Frazell [employer] TECHNICIAN Act nael SINGULAIR 10 MG ORAL TABLET 1 po qday for allergies 20 14/01/12 MONTELUKAST SODIUM 39356031614 No Longer Active Carlton Hu MD Active LEVAQUIN 500 MG ORAL TABLET 1 tablet by mouth daily 20 13/09/24 LEVOFLOXACIN 01911382206 No Longer Active Carlton Hu MD Acti ve FLUTICASONE PROPIONATE 50 MCG/ACT NASAL SUSPENSION 2 s prays each nostril daily for 2 weeks, then 1 spray each nostril daily. FLUTICASONE PROPIONATE 26972332291 Active Elise Areseema KHAN Active ZITHROMAX 250 MG ORAL TABLET 2 po today, then 1 po q days 2-5 20 13/08/10 AZITHROMYCIN 21498997747 No Longer Active Elise Garcia APRN Active XANAX 0.5 MG ORAL TABLET one tablet by mouth daily prn anxiety 2015 ALPRAZOLAM 64286178398 Active ALFREDO Holly Active CYMBALTA 30 MG ORAL CAPSULE DELAYED RELEASE PARTICLES 1 cap by mouth daily for depression DULOXETINE HCL 13856787593 Active ALFREDO Holly Active CEFDINIR 300 MG ORAL CAPSULE 1 po BID x 10 days CEFDINIR 45040112922 No Longer Active Carlton Hu MD Active ZOCOR 40 MG ORAL TABLET 1 tab by mouth daily SI MVASTATIN 28060343230 No Longer Active Carlton Hu MD Active CYCLOBENZAPRINE HCL 10 MG ORAL TABLET 1 tablet by mouth BID prn had pain CYCLOBENZAPRINE HCL 16755289986 No Longer Active Jayden Hu MD Active LEVOFLOXACIN 500 MG ORAL TABLET 1 tab PO daily x 10 days LEVOFLOXACIN 14177780393 No Longer Active Carlton Hu MD Acti ve PREDNISONE 20 MG ORAL TABLET 3 tab PO qd x 2d, 2 tab P O qd x 2d, 1 tab PO qd x 2d, 1/2 tab PO qd x 2d PREDNISONE 97779572096 No Lo nger Active Carlton Hu MD Active FLUTICASONE PROPIONATE 50 MCG/ACT NASAL SUSPENSION 1 t o 2 sprays each nostril daily FLUTICASONE PROPIONATE 96443979119 No Longer Ac tive Blaine HERNANDEZ Active CHERATUSSIN AC 100-10 MG/5ML ORAL SYRUP 1 tsp by mouth every 4 hours as needed for cough GUAIFENESIN-CODEINE 66973378466 No Longe r Active Blaine HERNANDEZ Active PROMETHAZINE-CODEINE 6.25-10 MG/5ML ORAL SYRUP 1 tsp b y mouth every 6 hours if needed for cough PROMETHAZINE-CODEINE 54180163528 No Longer Active Blaine HERNANDEZ Active CHERATUSSIN AC 100-10 MG/5ML ORAL SYRUP 1 tsp by mouth every 4 hours as needed for cough GUAIFENESIN-CODEINE 52809862447 No Longe r Active Blaine HERNANDEZ Active ZITHROMAX Z-REYNA 250 MG ORAL TABLET 2 today, then 1 daily for 4 d ays AZITHROMYCIN 58992970042 No Longer Active Columba Raida Act nael ZITHROMAX 250 MG ORAL TABLET 2 po today, then 1 po q days 2-5 20 14/03/21 AZITHROMYCIN 42817811434 No Longer Active Carlton Hu MD Active ZITHROMAX Z-REYNA 250 MG ORAL TABLET 2 today, then 1 daily for 4 d ays AZITHROMYCIN 40398230687 No Longer Active Columba Raida Act nael AUGMENTIN 875-125 MG ORAL TABLET 1 po BID x 10 days 13/01/20 AMOXICILLIN-POT CLAVULANATE 55722645794 No Longer Active Diya De Guzman APRN Active ZITHROMAX 250 MG ORAL TABLET 2 po today, then 1 po q days 2-5 20 12/08/14 AZITHROMYCIN 52033521261 No Longer Active Carlton Hu MD Active TRAMADOL HCL 50 MG ORAL TABLET 1 po tid with ES Tylenol TRAMADOL HCL 13576511477 Active ALFREDO Holly Active PREMARIN 0.625 MG ORAL TABLET TAKE 1 TAB BY MOUTH DAILY ESTROGENS CONJUGATED 18523449980 No Longer Active Ridge Bess DO A ctive CYMBALTA 30 MG ORAL CAPSULE DELAYED RELEASE PARTICLES 1 cap by mouth daily DULOXETINE HCL 32357051058 No Longer Active Ridge tam DO Active AMOXICILLIN 500 MG ORAL CAPSULE 1 tab by mouth 3 times daily x 10 days AMOXICILLIN 97141942124 No Longer Active Carlton bustamante MD Active AMOXICILLIN 500 MG ORAL CAPSULE 1 tab by mouth 3 times daily x 10 days AMOXICILLIN 52073609356 No Longer Active Carlton bustamante MD Active PROMETHAZINE-CODEINE 6.25-10 MG/5ML ORAL SYRUP 1 tsp b y mouth every 8 hours prn cough PROMETHAZINE-CODEINE 54551194830 No Longer Acti ve Carlton Hu MD Active MEDROL 4 MG ORAL TABLET THERAPY PACK 6 pills x 1 day, then 5 pills x 1 day then 4 pills x 1 day, then 3 pills x 1 day, then 2 pills x 1 day, then 1 pill x 1 day, then stop METHYLPREDNISOLONE 72929884626 No Long er Active Perez Mora MD Active AZITHROMYCIN 250 MG ORAL TABLET 2 po qd x 1 day, then 1 po q d x 4 days AZITHROMYCIN 81591916834 No Longer Active Perez Ambriz MD Active SYMBICORT 160-4.5 MCG/ACT INHALATION AEROSOL 2 puffs bid wit h rinse after BUDESONIDE-FORMOTEROL FUMARATE 74976872320 N o Longer Active Perez Mora MD Active LYRICA 75 MG ORAL CAPSULE TAKE 1 CAPSULE BY MOUTH TWICE DAILY PREGABALIN 92128479780 No Longer Active Carlton Hu MD Acti ve TOPAMAX 25 MG ORAL TABLET 1 qHS x 1 week, then 1 BID x 1 week, then 1 qAM and 2 qHS x 1 week, then 2 BID (migraine prevention) T OPIRAMATE 65607087471 No Longer Active Jerica FUENTES Active TOPAMAX 50 MG ORAL TABLET take 1 tab po BID for migraines. 07/02 TOPIRAMATE 56961277999 No Longer Active Jerica FUENTES Active TOPAMAX 100 MG ORAL TABLET Take 1 tablet po bid TO PIRAMATE 91057606076 Active Carlton Hu MD Active TRIAMCINOLONE ACETONIDE 0.1 % EXTERNAL CREAM apply three roger es daily prn rash TRIAMCINOLONE ACETONIDE 34425142282 No Longer Active Carlton Hu MD Active PAXIL 40 MG ORAL TABLET take 1 tab po qday for depression 0 PAROXETINE HCL 02197024949 Active ALFREDO Holly Active CHERATUSSIN AC 100-10 MG/5ML ORAL SYRUP 5ml po q6hr PRN Cough 20 13/04/14 GUAIFENESIN-CODEINE 83101759091 No Longer Active Carlton Hu MD Active MEDROL 4 MG ORAL TABLET THERAPY PACK 6 tabs on day 1, 5 tabs on day 2, 4 tabs on day 3, 3 tabs on day 4, 2 tabs on day 5, 1 tab on day 6 2013 METHYLPREDNISOLONE 72568878578 No Longer Active Perez Mora MD Active AZITHROMYCIN 250 MG ORAL TABLET 2 po qd x 1 day, then 1 po q d x 4 days AZITHROMYCIN 04185065164 No Longer Active Perez Ambriz MD Active PROPRANOLOL HCL 60 MG ORAL TABLET 1 PO Q D PROPRANOLOL HCL 69811117264 No Longer Active Perez Mora MD Activ e CHERATUSSIN AC 100-10 MG/5ML ORAL SYRUP take one tsp po Q 6h ours prn cough GUAIFENESIN-CODEINE 41017035802 No Longer Active Zia Mora MD Active AUGMENTIN 875-125 MG ORAL TABLET 1 tab by mouth twice daily with food AMOXICILLIN-POT CLAVULANATE 25287638624 No Longer Act nael Mora MD Active CHERATUSSIN AC 100-10 MG/5ML ORAL SYRUP 1 tsp by mouth every 4 hours as needed for cough GUAIFENESIN-CODEINE 66759825733 No Longe r Active Hugo Restrepo MD Active ACETAMINOPHEN-CODEINE #3 300-30 MG ORAL TABLET 1 PO Q 4-6 HRS [place] N PAIN ACETAMINOPHEN-CODEINE 79309946895 No Longer Active Hugo Restrepo MD Active LEVAQUIN 500 MG ORAL TABLET take one po QD LEVO FLOXACIN 64899206881 No Longer Active Griffin HERNANDEZ Active PREDNISONE 20 MG ORAL TABLET Take 3 tabs daily for 3 d ays, 2 tabs daily for 3 days, 1 tab daily for 3 days, 1/2 tab daily for 3 days 11/07 PREDNISONE 23607943263 No Longer Active Carlton Hu MD Acti ve AVELOX 400 MG ORAL TABLET 1 tab by mouth daily MOXIFLOXACIN HCL 21435233666 No Longer Active Carlton Hu MD Active CHERATUSSIN AC 100-10 MG/5ML ORAL SYRUP 1 tsp by mouth every 4 hours as needed for cough GUAIFENESIN-CODEINE 76526566628 No Longe r Active Hugo Restrepo MD Active AVELOX 400 MG ORAL TABLET 1 tab by mouth daily MOXIFLOXACIN HCL 17399599945 No Longer Active Marcy De La Rosa MD PhD Active TERBINAFINE HCL 250 MG ORAL TABLET 1 qDay T ERBINAFINE HCL 08738289243 No Longer Active Marcy De La Rosa MD PhD Active CHERATUSSIN AC 100-10 MG/5ML ORAL SYRUP 1 tsp by mouth every 4 hours as needed for cough GUAIFENESIN-CODEINE 48954007380 No Longe r Active Marcy De La Rosa MD PhD Active AVELOX 400 MG ORAL TABLET 1 tab by mouth daily MOXIFLOXACIN HCL 87403088759 No Longer Active Marcy De La Rosa MD PhD Active HYDROCODONE-ACETAMINOPHEN 5-325 MG ORAL TABLET 1 po q 6hr PRN co ugh HYDROCODONE-ACETAMINOPHEN 78528613724 No Longer Active Marcy De La Rosa MD PhD Active PREDNISONE 20 MG ORAL TABLET 2 tabs daily for 3 days, 1 tab daily for 3 days, 1/2 tab daily for 2 days PREDNISONE 08174848112 No Longer Active Carlton Hu MD Active CEFDINIR 300 MG ORAL CAPSULE by mouth twice a day 2011 CEFDINIR 68408619413 No Longer Active Carlton Hu MD Acti ve HYDROCHLOROTHIAZIDE 25 MG ORAL TABLET 1 TAB PO DAILY HYDROCHLOROTHIAZIDE 10272743255 Active ALFREDO Holly Ac tive ACETAMINOPHEN-CODEINE #3 300-30 MG ORAL TABLET 1 tablet po q 4-6 hrs prn pain ACETAMINOPHEN-CODEINE 97516027575 No Longer Active Ridge Bess DO Active ZITHROMAX 250 MG ORAL TABLET 2 po today, then 1 po q days 2-5 20 03/07/07 AZITHROMYCIN 39566836393 No Longer Active Carlton Hu MD Active CHERATUSSIN AC 100-10 MG/5ML ORAL SYRUP take 1 tsp po q4-6 h ours prn cough GUAIFENESIN-CODEINE 11755496538 No Longer Active Jayden Hu MD Active ACETAMINOPHEN-CODEINE #3 300-30 MG ORAL TABLET 1 PO Q 4-6 HR PRN PAIN ACETAMINOPHEN-CODEINE 65479665332 No Longer Active Da vilesley Hu MD Active LORTAB 7.5-500 MG/15ML ORAL ELIXIR 7.5 ml po q 4 hour prn cough HYDROCODONE-ACETAMINOPHEN 68178718021 No Longer Active Carlton Hu MD Active PREDNISONE 20 MG ORAL TABLET 1 po bid 3 days, then 1 po q day 3 days PREDNISONE 96793874240 No Longer Active Carlton Hu MD Active CEFDINIR 300 MG ORAL CAPSULE by mouth twice a day 2011 CEFDINIR 38412291278 No Longer Active Carlton Hu MD Acti ve CEFDINIR 300 MG ORAL CAPSULE by mouth twice a day 2010 CEFDINIR 56662572170 No Longer Active Carlton Hu MD Acti ve CEFDINIR 300 MG ORAL CAPSULE by mouth twice a day 2010 CEFDINIR 50046430368 No Longer Active Carlton Hu MD Acti ve TESSALON PERLES 100 MG ORAL CAPSULE 1 tablet by mouth 3 times daily as needed for cough BENZONATATE 62083997998 No Longer Active Carlton Hu MD Active CEFDINIR 300 MG ORAL CAPSULE by mouth twice a day 2010 CEFDINIR 03616845313 No Longer Active Carlton Hu MD Acti ve ZITHROMAX Z-REYNA 250 MG ORAL TABLET 2 today, then 1 daily for 4 d ays AZITHROMYCIN 72535118040 No Longer Active Hugo Restrepo MD Active TESSALON PERLES 100 MG ORAL CAPSULE 1 tablet by mouth 3 times daily as needed for cough TESSALON PERLES 100 MG ORAL CAPSULE 37863 7 BENZONATATE Inactive PREDNISONE 20 MG ORAL TABLET 1 po bid 3 days, then 1 po q day 3 days PREDNISONE 20 MG ORAL TABLET 167748 PREDNISONE [place] ctive LORTAB 7.5-500 MG/15ML ORAL [...] cough CHERATUSSIN AC 100-10 MG/5ML ORAL SYRUP 090856 GUAIFENESIN-CODEINE Inactive ACETAMINOPHEN-CODEINE #3 300-30 MG ORAL TABLET 1 tablet po q 4-6 hrs prn pain ACETAMINOPHEN-CODEINE #3 300-30 MG ORAL TABLET ACETAMINOPHEN-CODEINE Inactive HYDROCODONE-ACETAMINOPHEN 5-325 MG ORAL TABLET 1 po q 6hr PRN co ugh HYDROCODONE-ACETAMINOPHEN 5-325 MG ORAL TABLET 365984 HYDROCODONE-ACETAMINOPHEN Inactive AVELOX 400 MG ORAL TABLET 1 tab by mouth daily AVELOX 400 MG ORAL TABLET 651029 MOXIFLOXACIN HCL Inactive CHERATUSSIN AC 100-10 MG/5ML ORAL SYRUP 1 tsp by mouth every 4 hours as needed for cough CHERATUSSIN AC 100-10 MG/5ML ORAL SYRUP 9 22054 GUAIFENESIN-CODEINE Inactive TERBINAFINE HCL 250 MG ORAL TABLET 1 qDay 07/08 TERBINAFINE HCL 250 MG ORAL TABLET 157711 TERBINAFINE HCL Inactive CHERATUSSIN AC 100-10 MG/5ML ORAL SYRUP 1 tsp by mouth every 4 hours as needed for cough CHERATUSSIN AC 100-10 MG/5ML ORAL SYRUP 9 84562 GUAIFENESIN-CODEINE Inactive ACETAMINOPHEN-CODEINE #3 300-30 MG ORAL TABLET 1 PO Q 4-6 HRS [place] N PAIN ACETAMINOPHEN-CODEINE #3 300-30 MG ORAL TABLET ACETAMINOPHEN-CODEINE Inactive CHERATUSSIN AC 100-10 MG/5ML ORAL SYRUP 1 tsp by mouth every 4 hours as needed for cough CHERATUSSIN AC 100-10 MG/5ML ORAL SYRUP 9 64052 GUAIFENESIN-CODEINE Inactive AUGMENTIN 875-125 MG ORAL TABLET 1 tab by mouth twice daily with food AUGMENTIN 875-125 MG ORAL TABLET 307824 AMOXICIL MADELINE-POT CLAVULANATE Inactive CHERATUSSIN AC 100-10 MG/5ML ORAL SYRUP take one tsp po Q 6h ours prn cough CHERATUSSIN AC 100-10 MG/5ML ORAL SYRUP 817628 GUAIFENESIN-CODEINE Inactive PROPRANOLOL HCL 60 MG ORAL TABLET 1 PO Q D PROPRANOLOL HCL 60 MG ORAL TABLET 026742 PROPRANOLOL HCL Inactive TOPAMAX 50 MG ORAL TABLET take 1 tab po BID for migraines. 07/02 TOPAMAX 50 MG ORAL TABLET 394655 TOPIRAMATE Inacti ve TOPAMAX 25 MG ORAL TABLET 1 qHS x 1 week, then 1 BID x 1 week, then 1 qAM and 2 qHS x 1 week, then 2 BID (migraine prevention) TOPAMAX 25 MG ORAL TABLET 950278 TOPIRAMATE Inactive LYRICA 75 MG ORAL CAPSULE TAKE 1 CAPSULE BY MOUTH TWICE DAILY LYRICA 75 MG ORAL CAPSULE PREGABALIN Inactive SYMBICORT 160-4.5 MCG/ACT INHALATION AEROSOL 2 puffs bid wit h rinse after SYMBICORT 160-4.5 MCG/ACT INHALATION AEROSOL BUDESONIDE- FORMOTEROL FUMARATE Inactive PROMETHAZINE-CODEINE 6.25-10 MG/5ML ORAL SYRUP 1 tsp b y mouth every 8 hours prn cough PROMETHAZINE-CODEINE 6.25-10 MG/ 5ML ORAL SYRUP 254757 PROMETHAZINE-CODEINE Inactive CYMBALTA 30 MG ORAL CAPSULE DELAYED RELEASE PARTICLES 1 cap by mouth daily CYMBALTA 30 MG ORAL CAPSULE DELAYED RELE ASE PARTICLES 585144 DULOXETINE HCL Inactive PREMARIN 0.625 MG ORAL TABLET TAKE 1 TAB BY MOUTH DAILY PREMARIN 0.625 MG ORAL TABLET ESTROGENS CONJUGATED Inactive CHERATUSSIN AC 100-10 MG/5ML ORAL SYRUP 1 tsp by mouth every 4 hours as needed for cough CHERATUSSIN AC 100-10 MG/5ML ORAL SYRUP 9 76928 GUAIFENESIN-CODEINE Inactive PROMETHAZINE-CODEINE 6.25-10 MG/5ML ORAL SYRUP 1 tsp b y mouth every 6 hours if needed for cough PROMETHAZINE-CODEINE 6.25-10 MG/5ML ORAL SYRUP 808979 PROMETHAZINE-CODEINE Inactive CHERATUSSIN AC 100-10 MG/5ML ORAL SYRUP 1 tsp by mouth every 4 hours as needed for cough CHERATUSSIN AC 100-10 MG/5ML ORAL SYRUP 9 20259 GUAIFENESIN-CODEINE Inactive FLUTICASONE PROPIONATE 50 MCG/ACT NASAL SUSPENSION 1 t o 2 sprays each nostril daily FLUTICASONE PROPIONATE 50 MCG/AC T NASAL SUSPENSION 8584614 FLUTICASONE PROPIONATE Inactive PREDNISONE 20 MG ORAL TABLET 3 tab PO qd x 2d, 2 tab P O qd x 2d, 1 tab PO qd x 2d, 1/2 tab PO qd x 2d PREDNISONE 20 MG ORAL TAB LET 818213 PREDNISONE Inactive LEVOFLOXACIN 500 MG ORAL TABLET 1 tab PO daily x 10 days LEVOFLOXACIN 500 MG ORAL TABLET 610481 LEVOFLOXACIN Inactive CYCLOBENZAPRINE HCL 10 MG ORAL TABLET 1 tablet by mouth BID prn had pain CYCLOBENZAPRINE HCL 10 MG ORAL TABLET 364082 CYCLOBENZAPRINE HCL Inactive ZOCOR 40 MG ORAL TABLET 1 tab by mouth daily 4 ZOCOR 40 MG ORAL TABLET 197525 SIMVASTATIN Inactive TUSSIONEX PENNKINETIC ER 10-8 MG/5ML [...] FLUTICASONE PROPIO EFE 50 MCG/ACT NASAL SUSPENSION 3694892 FLUTICASONE PROPIONATE Inactive TUSSIONEX PENNKINETIC ER 10-8 [...] three days PREDNISONE 20 MG ORAL TABLET 083041 PREDNIS ONE Inactive PROAIR HFA 108 (90 BASE) MCG/ACT INHALATION AEROSOL SO LUTION 2 puffs four times a day as needed PROAIR HFA 108 (90 B ASE) MCG/ACT INHALATION AEROSOL SOLUTION ALBUTEROL SULFATE Inactive ZITHROMAX Z-REYNA 250 MG ORAL TABLET 2 today, then 1 daily for 4 d ays ZITHROMAX Z-REYNA 250 MG ORAL TABLET 601852 AZITHROMYCIN Inactive CEFDINIR 300 MG ORAL CAPSULE by mouth twice a day 2010 CEFDINIR 300 MG ORAL CAPSULE 203321 CEFDINIR Inactive CEFDINIR 300 MG ORAL CAPSULE by mouth twice a day 2010 CEFDINIR 300 MG ORAL CAPSULE 114509 CEFDINIR Inactive CEFDINIR 300 MG ORAL CAPSULE by mouth twice a day 2010 CEFDINIR 300 MG ORAL CAPSULE 212622 CEFDINIR Inactive CEFDINIR 300 MG ORAL CAPSULE by mouth twice a day 2011 CEFDINIR 300 MG ORAL CAPSULE 156541 CEFDINIR Inactive ZITHROMAX 250 MG ORAL TABLET 2 po today, then 1 po q days 2-5 20 03/07/07 ZITHROMAX 250 MG ORAL TABLET 868099 AZITHROMYCIN [place] ctive CEFDINIR 300 MG ORAL CAPSULE by mouth twice a day 2011 CEFDINIR 300 MG ORAL CAPSULE 708453 CEFDINIR Inactive PREDNISONE 20 MG ORAL TABLET 2 tabs daily for 3 days, 1 tab daily for 3 days, 1/2 tab daily for 2 days PREDNISONE 20 MG ORAL T ABLET 901039 PREDNISONE Inactive AVELOX 400 MG ORAL TABLET 1 tab by mouth daily AVELOX 400 MG ORAL TABLET 430675 MOXIFLOXACIN HCL Inactive AVELOX 400 MG ORAL TABLET 1 tab by mouth daily AVELOX 400 MG ORAL TABLET 279938 MOXIFLOXACIN HCL Inactive PREDNISONE 20 MG ORAL TABLET Take 3 tabs daily for 3 d ays, 2 tabs daily for 3 days, 1 tab daily for 3 days, 1/2 tab daily for 3 days 11/07 PREDNISONE 20 MG ORAL TABLET 053519 PREDNISONE Inactive LEVAQUIN 500 MG ORAL TABLET take one po QD LEVAQUIN 500 MG ORAL TABLET 868256 LEVOFLOXACIN Inactive AZITHROMYCIN 250 MG ORAL TABLET 2 po qd x 1 day, then 1 po q d x 4 days AZITHROMYCIN 250 MG ORAL TABLET 585434 AZITHROMY GIOVANNI Inactive MEDROL 4 MG ORAL TABLET THERAPY PACK 6 tabs on day 1, 5 tabs on day 2, 4 tabs on day 3, 3 tabs on day 4, 2 tabs on day 5, 1 tab on day 6 2013 MEDROL 4 MG ORAL TABLET THERAPY PACK 547612 METHYLPREDNISOLONE [place] ctive CHERATUSSIN AC 100-10 MG/5ML ORAL SYRUP 5ml po q6hr PRN Cough 20 13/04/14 CHERATUSSIN AC 100-10 MG/5ML ORAL SYRUP 980824 GUAIFENE SIN-CODEINE Inactive TRIAMCINOLONE ACETONIDE 0.1 % EXTERNAL CREAM apply three roger es daily prn rash TRIAMCINOLONE ACETONIDE 0.1 % EXTERNAL CREAM 101 4314 TRIAMCINOLONE ACETONIDE Inactive AZITHROMYCIN 250 MG ORAL TABLET 2 po qd x 1 day, then 1 po q d x 4 days AZITHROMYCIN 250 MG ORAL TABLET 997136 AZITHROMY GIOVANNI Inactive MEDROL 4 MG ORAL TABLET THERAPY PACK 6 pills x 1 day, then 5 pills x 1 day then 4 pills x 1 day, then 3 pills x 1 day, then 2 pills x 1 day, then 1 pill x 1 day, then stop MEDROL 4 MG ORAL TABLET THERAPY PACK 873240 METHYLPREDNISOLONE Inactive AMOXICILLIN 500 MG ORAL CAPSULE 1 tab by mouth 3 times daily x 10 days AMOXICILLIN 500 MG ORAL CAPSULE 695900 AMOXICILL IN Inactive AMOXICILLIN 500 MG ORAL CAPSULE 1 tab by mouth 3 times daily x 10 days AMOXICILLIN 500 MG ORAL CAPSULE 396054 AMOXICILL IN Inactive ZITHROMAX 250 MG ORAL TABLET 2 po today, then 1 po q days 2-5 20 12/08/14 ZITHROMAX 250 MG ORAL TABLET 251201 AZITHROMYCIN [place] ctive AUGMENTIN 875-125 MG ORAL TABLET 1 po BID x 10 days 20 13/01/20 AUGMENTIN 875-125 MG ORAL TABLET 611282 AMOXICILLIN-POT CLAVULANATE Inactive ZITHROMAX Z-REYNA 250 MG ORAL TABLET 2 today, then 1 daily for 4 d ays ZITHROMAX Z-REYNA 250 MG ORAL TABLET 885318 AZITHROMYCIN Inactive ZITHROMAX 250 MG ORAL TABLET 2 po today, then 1 po q days 2-5 20 14/03/21 ZITHROMAX 250 MG ORAL TABLET 254030 AZITHROMYCIN [place] ctive ZITHROMAX Z-REYNA 250 MG ORAL TABLET 2 today, then 1 daily for 4 d ays ZITHROMAX Z-REYNA 250 MG ORAL TABLET 229044 AZITHROMYCIN Inactive CEFDINIR 300 MG ORAL CAPSULE 1 po BID x 10 days 06/21 CEFDINIR 300 MG ORAL CAPSULE 273757 CEFDINIR Inactive ZITHROMAX 250 MG ORAL TABLET 2 po today, then 1 po q days 2-5 20 13/08/10 ZITHROMAX 250 MG ORAL TABLET 223243 AZITHROMYCIN [place] ctive LEVAQUIN 500 MG ORAL TABLET 1 tablet by mouth daily 20 13/09/24 LEVAQUIN 500 MG ORAL TABLET 734068 LEVOFLOXACIN Inactive SINGULAIR 10 MG ORAL TABLET 1 po qday for allergies 20 14/01/12 SINGULAIR 10 MG ORAL TABLET [id number] MONTELUKAST SODIUM Inactive AMOXICILLIN 500 MG ORAL CAPSULE 2 po BID x 10 days 201 09/29/08 AMOXICILLIN 500 MG ORAL CAPSULE 434523 AMOXICILLIN Inactive PREDNISONE 20 MG ORAL TABLET 2 tabs daily for 3 days, 1 tab daily for 3 days, 1/2 tab daily for 2 days PREDNISONE 20 MG ORAL T ABLET 212970 PREDNISONE Inactive ZITHROMAX Z-REYNA 250 MG ORAL TABLET 2 today, then 1 daily for 4 d ays ZITHROMAX Z-REYNA 250 MG ORAL TABLET 375463 AZITHROMYCIN Inactive PREDNISONE 20 MG ORAL TABLET 2 tabs daily for 3 days, 1 tab daily for 3 days, 1/2 tab daily for 2 days PREDNISONE 20 MG ORAL T ABLET 650923 PREDNISONE Inactive ZITHROMAX 250 MG ORAL TABLET 2 po today, then 1 po q days 2-5 20 14/09/04 ZITHROMAX 250 MG ORAL TABLET 164244 AZITHROMYCIN Greer ctive AMOXICILLIN 500 MG ORAL CAPSULE 1 cap by mouth three times a day AMOXICILLIN 500 MG ORAL CAPSULE 786308 AMOXICILLIN Inactive TERBINAFINE HCL 250 MG ORAL TABLET 1 qDay for nail fungus 7 TERBINAFINE HCL 250 MG ORAL TABLET 398758 TERBINAFINE HCL Inact nael AUGMENTIN 875-125 MG ORAL TABLET 1 po BID x 10 days 16/03/22 AUGMENTIN 875-125 MG ORAL TABLET 711306 AMOXICILLIN-POT CLAVULANATE Inactive PREDNISONE 20 MG ORAL TABLET 2 po qd x 5 days PREDNISONE 20 MG ORAL TABLET 588156 PREDNISONE Inactive AZITHROMYCIN 250 MG ORAL TABLET 2 po qd x 1 day, then 1 po q d x 4 days AZITHROMYCIN 250 MG ORAL TABLET 434450 AZITHROMY GIOVANNI Inactive Vital Signs Date Name [...] - Chem istry sodium, serum 139 mmol/L 704-637 1233/03/19 potassium, serum 3.6 mmol/L 3.5-5.2 chloride, serum 100 mmol/L 98-107 carbon dioxide, venous blood 30.3 mmol/L 21.0-32 .0 blood glucose 101 mg/dL 65-110 calcium, serum 9.4 mg/dL 8.5-10.1 urea nitrogen, blood 10 mg/dL 7-18 creatinine, serum 0.96 mg/dL 0.60-1.30 sodium, serum 139 mmol/L 842-804 7767/10/12 potassium, serum 3.8 mmol/L 3.5-5.2 chloride, serum 102 mmol/L 98-107 carbon dioxide, venous blood 29.4 mmol/L 21.0-32 .0 blood glucose 103 mg/dL 65-95 calcium, serum 8.8 mg/dL 8.5-10.1 urea nitrogen, blood 10 mg/dL 7-18 creatinine, serum 0.97 mg/dL 0.60-1.30 Estimated Glomerular Filtration Rate (calc) 62 (?) mL/min/1.73m2 = OR > 60 mL/min Encounters Code Encounter Date Provider Facility CPT-64021 [id number] Vst-Est Level III 11:12:16 CDT Br tami Bess DO [facility] CPT-06961 Level 3 Est. Patient 11:34:49 LOGISTICS LOSS PREVENTION MANAGER Perez Mora MD [facility] CPT-65750 Level 4 Est. Patient 09:51:32 LOGISTICS LOSS PREVENTION MANAGER Carlton rich MD [facility] CPT-71242 Level 3 Est. Patient 10:26:00 LOGISTICS LOSS PREVENTION MANAGER Elise stephenson APRN [facility] CPT-15796 Level 3 Est. Patient 13:35:41 LOGISTICS LOSS PREVENTION MANAGER Carlton rich MD [facility] CPT-37267 Level 3 Est. Patient 10:03:52 LOGISTICS LOSS PREVENTION MANAGER Carlton rich MD [facility] CPT-17283 Level 3 Est. Patient 12:17:50 CDT Hugo Restrepo MD [facility] CPT-39150 Level 3 Est. Patient 13:42:38 CDT Elise Are ll [facility] CPT-90459 Level 3 Est. Patient 13:23:51 CDT Diya cobian [facility] CPT-58448 Level 3 Est. Patient 14:22:19 LOGISTICS LOSS PREVENTION MANAGER Diya cobian [facility] CPT-03986 Level 3 Est. Patient 10:11:46 CDT Carlton rich MD [facility] CPT-51895 Level 3 Est. Patient 17:29:43 CDT Elise Are ll [facility] CPT-63291 Level 3 Est. Patient 11:58:06 CDT Elise Are ll [facility] CPT-34028 Level 4 Est. Patient 14:36:51 CDT Carlton rich MD [facility] CPT-86389 Level 3 Est. Patient 18:16:00 LOGISTICS LOSS PREVENTION MANAGER Blaine HERNANDEZ [facility] CPT-90712 Level 3 Est. Patient 09:45:49 LOGISTICS LOSS PREVENTION MANAGER Carlton rich MD [facility] CPT-51011 Level 3 Est. Patient 13:19:20 CDT Carlton rich MD [facility] CPT-40465 Level 3 Est. Patient 13:06:43 CDT Ridge tam DO [facility] CPT-40857 Level 3 Est. Patient 10:03:07 CDT Perez Mora MD [facility] CPT-36370 Level 3 Est. Patient 19:50:35 LOGISTICS LOSS PREVENTION MANAGER Carlton rich MD [facility] named [facility]-95964 Level 4 Est. Patient 18:05:01 LOGISTICS LOSS PREVENTION MANAGER Carlton rich MD [facility] named [facility]-24416 Level 3 Est. Patient 10:45:55 LOGISTICS LOSS PREVENTION MANAGER Hugo Restrepo MD [facility] named [facility]-08689 Level 3 Est. Patient 14:12:49 CDT Griffin HERNANDEZ [facility] named [facility]-55935 Level 3 Est. Patient 17:37:24 CDT Carlton rich MD [facility]-68934 Level 3 Est. Patient 16:51:54 CDT Carlton rich MD [facility] named [facility]-41468 Level 3 Est. Patient 12:18:11 CDT Hugo Restrepo MD [facility] named [facility]-26421 Level 3 Est. Patient 11:30:25 CDT Marcy crisostomo MD PhD [facility] named [facility]-26110 Level 3 Est. Patient 12:00:47 LOGISTICS LOSS PREVENTION MANAGER Carlton rich MD [facility] named [facility]-48175 Level 3 Est. Patient 16:31:06 LOGISTICS LOSS PREVENTION MANAGER Carlton rich MD [facility] named [facility]-30101 Level 3 Est. Patient 16:23:24 LOGISTICS LOSS PREVENTION MANAGER Ridge tam DO [facility]-27245 Level 3 Est. Patient 12:34:12 CDT Carlton rich MD [facility] CPT-42029 Level 2 Est. Patient 15:43:33 CDT Robi armstrong MD [facility]-68202 Level 4 Est. Patient 14:04:44 CDT Carlton rich MD [facility]-56234 Level 3 Est. Patient 05:47:59 CDT Ridge atm [facility]-62385 Level 3 Est. Patient 13:12:53 LOGISTICS LOSS PREVENTION MANAGER Carlton rich MD [facility] CPT-54881 Level 3 Est. Patient 14:26:53 CDT Hugo [...] CPT-J1100 Decadron 6mg (Dexamethasone) 14:32:13 CDT 2 CPT-62576 Hip bilat min 2V w AP pelvis 13:16:20 CDT 2 CPT-92854 Pelvis only 13:07:33 CDT CPT-99238 Spec Collection and Handling Fee 11:25:12 C DT CPT-25786 Fluzone Quadrivalent Intramuscular Suspe nsion 0.5 ML 14:31:55 CDT CPT-35717 Abx/Therapy Injection 13:28:47 LOGISTICS LOSS PREVENTION MANAGER CPT-J2930 Solu Medrol 125 mg (Methyl Prednisolone Sodium Succinate) 12:00:47 LOGISTICS LOSS PREVENTION MANAGER CPT-38163 Venipuncture Draw Fee 11:33:31 CDT CPT-44610 EKG Trac and Interp 11:21:09 CDT CPT-52708 Chest 2V Frontal and Lat 11:21:09 CDT 12/15 CPT-65471 Venipuncture Draw Fee 08:02:34 CDT CPT-94206 Chest 2V Frontal and Lat 05:47:59 CDT 06/05
--- OUTSIDE RECORDS SUMMARY | 2019-10-08 09:30 | XMS REPORT | Clinical Summary ---
[...] URI 465.9 Inactive Ridge Bess DO Ac [place] upper respiratory infections of unspecified site Body [...] po q d x 4 days AZITHROMYCIN [id number] No Longer Active Ridge Bess DO Active PREDNISONE 20 MG ORAL TABLET two tabs by mouth today, then one tab by mouth days two and three and four PREDNISONE 07478003869 Active Lyndsay Mora MD Active PREDNISONE 20 MG ORAL TABLET 2 po qd x 5 days P REDNISONE 57768942294 No Longer Active Perez Mora MD Active PROAIR HFA 108 (90 BASE) MCG/ACT INHALATION AEROSOL SO LUTION 2 puffs four times a day as needed ALBUTEROL SULFATE 24063471417 No Long er Active Becky FUENTES Active ASPIRIN 81 MG ORAL TABLET 1 po qd ASPIRIN 08438527810 Active Carlton Hu MD Active PREDNISONE 20 MG ORAL TABLET 1 tab twice daily for 3 d ay, then one daily for three days PREDNISONE 40615852350 No Longer Active Carlton Hu MD Active AUGMENTIN 875-125 MG ORAL TABLET 1 po BID x 10 days 20 16/03/22 AMOXICILLIN-POT CLAVULANATE 89481836466 No Longer Active Elise Garcia APRN Active TERBINAFINE HCL 250 MG ORAL TABLET 1 qDay for nail fungus 7 TERBINAFINE HCL 42306680696 No Longer Active Carlton Hu MD A ctive TUSSIONEX PENNKINETIC ER 10-8 MG/5ML ORAL SUSPENSION E XTENDED RELEASE 5ml po q12hr PRN Cough HYDROCOD POLST-CHLORPHEN POLST 84422838172 Active Carlton Hu MD Active AMOXICILLIN 500 MG ORAL CAPSULE 1 cap by mouth three times a day AMOXICILLIN 00641172945 No Longer Active Carlton Hu MD Active ELMIRON 100 MG ORAL CAPSULE 2 tablets in the am and 1 tablet at hs PENTOSAN POLYSULFATE SODIUM 65616920428 No Longer Active Robert Hu MD Active MUCINEX D 60-600 MG ORAL TABLET EXTENDED RELEASE 12 HOUR 1 t ab po q am PSEUDOEPHEDRINE-GUAIFENESIN 58848339974 No Longer Act nael Carlton Hu MD Active MUCINEX DM MAXIMUM STRENGTH 60-1200 MG ORAL TABLET EXT ENDED RELEASE 12 HOUR 1 tab po q am DEXTROMETHORPHAN-GUAIFENESIN 82043909770 No Longer Active Carlton Hu MD Active TUSSIONEX PENNKINETIC ER 10-8 MG/5ML ORAL SUSPENSION E XTENDED RELEASE 5ml po q12hr PRN Cough HYDROCOD POLST-CHLORPHEN POLST 5 2827656328 No Longer Active Carlton Hu MD Active POTASSIUM CHLORIDE ER 20 MEQ ORAL TABLET EXTENDED RELE ASE Take 1 by mouth 4 times daily for 7 days POTASSIUM CHLORIDE 49329966370 No Longer Active Carlton Hu MD Active ZITHROMAX 250 MG ORAL TABLET 2 po today, then 1 po q days 2-5 14/09/04 AZITHROMYCIN 25030159876 No Longer Active Elise Garcia APRN Active TUSSIONEX PENNKINETIC ER 10-8 MG/5ML ORAL SUSPENSION E XTENDED RELEASE 5 ml twice a day as needed for cough HYDROCOD POLST-CHLORPH EN POLST 04522035937 No Longer Active Elise Garcia APRN Active MONTELUKAST SODIUM 10 MG ORAL TABLET 1 po daily for Allergy MONTELUKAST SODIUM 57391133330 Active Carlton Hu MD Ac tive TUSSIONEX PENNKINETIC ER 10-8 MG/5ML ORAL SUSPENSION E XTENDED RELEASE 5ml po q12hr PRN Cough HYDROCOD POLST-CHLORPHEN POLST 5 2396958781 No Longer Active Hugo Restrepo MD Active GABAPENTIN 100 MG ORAL CAPSULE 1 po BID for fibromyalgia GABAPENTIN 71455434145 Active Carlton Hu MD Active LYRICA 100 MG ORAL CAPSULE Take 1 tab po BID for fibromyalgia 20 11/08/21 PREGABALIN 51167578732 No Longer Active Elise Garcia PULMONARY PHYSICIAN A ctive PREDNISONE 20 MG ORAL TABLET 2 tabs daily for 3 days, 1 tab daily for 3 days, 1/2 tab daily for 2 days PREDNISONE 53967688309 No Longer Active Jillina Frazell PULMONARY PHYSICIAN Active TUSSIONEX PENNKINETIC ER 10-8 MG/5ML ORAL SUSPENSION E XTENDED RELEASE 5 mL PO q 12 hrs PRN cough HYDROCOD POLST-CHLORPHEN POLST 023380 88220 No Longer Active Jillina Frazell PULMONARY PHYSICIAN Active FLUTICASONE PROPIONATE 50 MCG/ACT NASAL SUSPENSION 2 s prays each nostril daily until bottle is empty FLUTICASONE PROPIONATE 902313942 99 No Longer Active Jillina Frazell PULMONARY PHYSICIAN Active ASMANEX 60 METERED DOSES 220 MCG/INH INHALATION AEROSO L POWDER BREATH ACTIVATED 1 puff bid with rinse after MOMETASONE FUROATE 1934657 4102 No Longer Active Jillina Frazell PULMONARY PHYSICIAN Active ZITHROMAX Z-REYNA 250 MG ORAL TABLET 2 today, then 1 daily for 4 d ays AZITHROMYCIN 76716546584 No Longer Active Elise Garcia PULMONARY PHYSICIAN Active TUSSIONEX PENNKINETIC ER 10-8 MG/5ML ORAL SUSPENSION E XTENDED RELEASE 5ml po q12hr PRN Cough HYDROCOD POLST-CHLORPHEN POLST 5 8797883803 No Longer Active Elise Garcia PULMONARY PHYSICIAN Active PREDNISONE 20 MG ORAL TABLET 2 tabs daily for 3 days, 1 tab daily for 3 days, 1/2 tab daily for 2 days PREDNISONE 98555388229 No Longer Active Jillina Frazell PULMONARY PHYSICIAN Active AMOXICILLIN 500 MG ORAL CAPSULE 2 po BID x 10 days 201 09/29/08 AMOXICILLIN 50653954215 No Longer Active Jillina Frazell PULMONARY PHYSICIAN Act nael SINGULAIR 10 MG ORAL TABLET 1 po qday for allergies 20 14/01/12 MONTELUKAST SODIUM 02869819278 No Longer Active Carlton Hu MD Active LEVAQUIN 500 MG ORAL TABLET 1 tablet by mouth daily 20 13/09/24 LEVOFLOXACIN 74943843793 No Longer Active Carlton Hu MD Acti ve FLUTICASONE PROPIONATE 50 MCG/ACT NASAL SUSPENSION 2 s prays each nostril daily for 2 weeks, then 1 spray each nostril daily. FLUTICASONE PROPIONATE 69359641551 Active Elise Arell PULMONARY PHYSICIAN Active ZITHROMAX 250 MG ORAL TABLET 2 po today, then 1 po q days 2-5 20 13/08/10 AZITHROMYCIN 14888599159 No Longer Active Elise Arell BILL Active XANAX 0.5 MG ORAL TABLET one tablet by mouth daily prn anxiety 2015 ALPRAZOLAM 22036916080 Active ALFREDO Holly Active CYMBALTA 30 MG ORAL CAPSULE DELAYED RELEASE PARTICLES 1 cap by mouth daily for depression DULOXETINE HCL 41134588258 Active Carlton beltrán MD Active CEFDINIR 300 MG ORAL CAPSULE 1 po BID x 10 days CEFDINIR 47742986954 No Longer Active Carlton Hu MD Active ZOCOR 40 MG ORAL TABLET 1 tab by mouth daily SI MVASTATIN 28624449201 No Longer Active Carlton Hu MD Active CYCLOBENZAPRINE HCL 10 MG ORAL TABLET 1 tablet by mouth BID prn had pain CYCLOBENZAPRINE HCL 64183385961 No Longer Active Jayden Hu MD Active LEVOFLOXACIN 500 MG ORAL TABLET 1 tab PO daily x 10 days LEVOFLOXACIN 84171516482 No Longer Active Carlton Hu MD Acti ve PREDNISONE 20 MG ORAL TABLET 3 tab PO qd x 2d, 2 tab P O qd x 2d, 1 tab PO qd x 2d, 1/2 tab PO qd x 2d PREDNISONE 94467668290 No Lo nger Active Carlton Hu MD Active FLUTICASONE PROPIONATE 50 MCG/ACT NASAL SUSPENSION 1 t o 2 sprays each nostril daily FLUTICASONE PROPIONATE 26404831457 No Longer Ac tive Blaine HERNANDEZ Active CHERATUSSIN AC 100-10 MG/5ML ORAL SYRUP 1 tsp by mouth every 4 hours as needed for cough GUAIFENESIN-CODEINE 37255483164 No Longe r Active Blaine HERNANDEZ Active PROMETHAZINE-CODEINE 6.25-10 MG/5ML ORAL SYRUP 1 tsp b y mouth every 6 hours if needed for cough PROMETHAZINE-CODEINE 31764274077 No Longer Active Blaine HERNANDEZ Active CHERATUSSIN AC 100-10 MG/5ML ORAL SYRUP 1 tsp by mouth every 4 hours as needed for cough GUAIFENESIN-CODEINE 85628906816 No Longe r Active Blaine HERNANDEZ Active ZITHROMAX Z-REYNA 250 MG ORAL TABLET 2 today, then 1 daily for 4 d ays AZITHROMYCIN 22259359494 No Longer Active Columba Raida Act nael ZITHROMAX 250 MG ORAL TABLET 2 po today, then 1 po q days 2-5 20 14/03/21 AZITHROMYCIN 22520879332 No Longer Active Carlton Hu MD Active ZITHROMAX Z-REYNA 250 MG ORAL TABLET 2 today, then 1 daily for 4 d ays AZITHROMYCIN 36567403931 No Longer Active Columba Raida Act nael AUGMENTIN 875-125 MG ORAL TABLET 1 po BID x 10 days 13/01/20 AMOXICILLIN-POT CLAVULANATE 28872598124 No Longer Active Diya De Guzman APRN Active ZITHROMAX 250 MG ORAL TABLET 2 po today, then 1 po q days 2-5 20 12/08/14 AZITHROMYCIN 62576458953 No Longer Active Carlton Hu MD Active TRAMADOL HCL 50 MG ORAL TABLET 1 po tid with ES Tylenol TRAMADOL HCL 02559462267 Active ALFREDO Holly Active PREMARIN 0.625 MG ORAL TABLET TAKE 1 TAB BY MOUTH DAILY ESTROGENS CONJUGATED 09844370247 No Longer Active Ridge Bess DO A ctive CYMBALTA 30 MG ORAL CAPSULE DELAYED RELEASE PARTICLES 1 cap by mouth daily DULOXETINE HCL 49975674286 No Longer Active Ridge tam DO Active AMOXICILLIN 500 MG ORAL CAPSULE 1 tab by mouth 3 times daily x 10 days AMOXICILLIN 27654194519 No Longer Active Carlton bustamante MD Active AMOXICILLIN 500 MG ORAL CAPSULE 1 tab by mouth 3 times daily x 10 days AMOXICILLIN 75041269426 No Longer Active Carlton bustamante MD Active PROMETHAZINE-CODEINE 6.25-10 MG/5ML ORAL SYRUP 1 tsp b y mouth every 8 hours prn cough PROMETHAZINE-CODEINE 85273793688 No Longer Acti ve Carlton Hu MD Active MEDROL 4 MG ORAL TABLET THERAPY PACK 6 pills x 1 day, then 5 pills x 1 day then 4 pills x 1 day, then 3 pills x 1 day, then 2 pills x 1 day, then 1 pill x 1 day, then stop METHYLPREDNISOLONE 57467917691 No Long er Active Perez Mora MD Active AZITHROMYCIN 250 MG ORAL TABLET 2 po qd x 1 day, then 1 po q d x 4 days AZITHROMYCIN 65706060440 No Longer Active Perez Ambriz MD Active SYMBICORT 160-4.5 MCG/ACT INHALATION AEROSOL 2 puffs bid wit h rinse after BUDESONIDE-FORMOTEROL FUMARATE 00861728037 N o Longer Active Perez Mora MD Active LYRICA 75 MG ORAL CAPSULE TAKE 1 CAPSULE BY MOUTH TWICE DAILY PREGABALIN 84812275131 No Longer Active Carlton Hu MD Acti ve TOPAMAX 25 MG ORAL TABLET 1 qHS x 1 week, then 1 BID x 1 week, then 1 qAM and 2 qHS x 1 week, then 2 BID (migraine prevention) T OPIRAMATE 60428572678 No Longer Active Jerica FUENTES Active TOPAMAX 50 MG ORAL TABLET take 1 tab po BID for migraines. 07/02 TOPIRAMATE 18369132894 No Longer Active Jerica FUENTES Active TOPAMAX 100 MG ORAL TABLET Take 1 tablet po bid TO PIRAMATE 35135145243 Active Carlton Hu MD Active TRIAMCINOLONE ACETONIDE 0.1 % EXTERNAL CREAM apply three roger es daily prn rash TRIAMCINOLONE ACETONIDE 02434977371 No Longer Active Carlton Hu MD Active PAXIL 40 MG ORAL TABLET take 1 tab po qday for depression 0 PAROXETINE HCL 74206117479 Active ALFREDO Holly Active CHERATUSSIN AC 100-10 MG/5ML ORAL SYRUP 5ml po q6hr PRN Cough 20 13/04/14 GUAIFENESIN-CODEINE 73099449778 No Longer Active Carlton Hu MD Active MEDROL 4 MG ORAL TABLET THERAPY PACK 6 tabs on day 1, 5 tabs on day 2, 4 tabs on day 3, 3 tabs on day 4, 2 tabs on day 5, 1 tab on day 6 2013 METHYLPREDNISOLONE 94878750075 No Longer Active Perez Mora MD Active AZITHROMYCIN 250 MG ORAL TABLET 2 po qd x 1 day, then 1 po q d x 4 days AZITHROMYCIN 12904474427 No Longer Active Perez Ambriz MD Active PROPRANOLOL HCL 60 MG ORAL TABLET 1 PO Q D PROPRANOLOL HCL 78723883681 No Longer Active Peerz Mora MD Activ e CHERATUSSIN AC 100-10 MG/5ML ORAL SYRUP take one tsp po Q 6h ours prn cough GUAIFENESIN-CODEINE 44125243964 No Longer Active Zia Mora MD Active AUGMENTIN 875-125 MG ORAL TABLET 1 tab by mouth twice daily with food AMOXICILLIN-POT CLAVULANATE 60611613814 No Longer Act nael Mora MD Active CHERATUSSIN AC 100-10 MG/5ML ORAL SYRUP 1 tsp by mouth every 4 hours as needed for cough GUAIFENESIN-CODEINE 66879130001 No Longe r Active Hugo Restrepo MD Active ACETAMINOPHEN-CODEINE #3 300-30 MG ORAL TABLET 1 PO Q 4-6 HRS MD N PAIN ACETAMINOPHEN-CODEINE 49858983178 No Longer Active Hugo Restrepo MD Active LEVAQUIN 500 MG ORAL TABLET take one po QD LEVO FLOXACIN 65567093681 No Longer Active Griffin HERNANDEZ Active PREDNISONE 20 MG ORAL TABLET Take 3 tabs daily for 3 d ays, 2 tabs daily for 3 days, 1 tab daily for 3 days, 1/2 tab daily for 3 days 11/07 PREDNISONE 16075882878 No Longer Active Carlton Hu MD Acti ve AVELOX 400 MG ORAL TABLET 1 tab by mouth daily MOXIFLOXACIN HCL 42686258045 No Longer Active Carlton Hu MD Active CHERATUSSIN AC 100-10 MG/5ML ORAL SYRUP 1 tsp by mouth every 4 hours as needed for cough GUAIFENESIN-CODEINE 22716767459 No Longe r Active Hugo Restrepo MD Active AVELOX 400 MG ORAL TABLET 1 tab by mouth daily MOXIFLOXACIN HCL 94280833144 No Longer Active Marcy De La Rosa MD PhD Active TERBINAFINE HCL 250 MG ORAL TABLET 1 qDay T ERBINAFINE HCL 56241574376 No Longer Active Marcy De La Rosa MD PhD Active CHERATUSSIN AC 100-10 MG/5ML ORAL SYRUP 1 tsp by mouth every 4 hours as needed for cough GUAIFENESIN-CODEINE 95636410417 No Longe r Active Marcy De La Rosa MD PhD Active AVELOX 400 MG ORAL TABLET 1 tab by mouth daily MOXIFLOXACIN HCL 01913560032 No Longer Active Marcy De La Rosa MD PhD Active HYDROCODONE-ACETAMINOPHEN 5-325 MG ORAL TABLET 1 po q 6hr PRN co ugh HYDROCODONE-ACETAMINOPHEN 04940672503 No Longer Active Marcy De La Rosa MD PhD Active PREDNISONE 20 MG ORAL TABLET 2 tabs daily for 3 days, 1 tab daily for 3 days, 1/2 tab daily for 2 days PREDNISONE 76316383349 No Longer Active Carlton Hu MD Active CEFDINIR 300 MG ORAL CAPSULE by mouth twice a day 2011 CEFDINIR 57998981517 No Longer Active Carlton Hu MD Acti ve HYDROCHLOROTHIAZIDE 25 MG ORAL TABLET 1 TAB PO DAILY HYDROCHLOROTHIAZIDE 38079194419 Active ALFREDO Holly Ac tive ACETAMINOPHEN-CODEINE #3 300-30 MG ORAL TABLET 1 tablet po q 4-6 hrs prn pain ACETAMINOPHEN-CODEINE 16131213618 No Longer Active Ridge Bess DO Active ZITHROMAX 250 MG ORAL TABLET 2 po today, then 1 po q days 2-5 20 03/07/07 AZITHROMYCIN 26708789364 No Longer Active Carlton Hu MD Active CHERATUSSIN AC 100-10 MG/5ML ORAL SYRUP take 1 tsp po q4-6 h ours prn cough GUAIFENESIN-CODEINE 90209105287 No Longer Active Jayden Hu MD Active ACETAMINOPHEN-CODEINE #3 300-30 MG ORAL TABLET 1 PO Q 4-6 HR PRN PAIN ACETAMINOPHEN-CODEINE 28572955617 No Longer Active Da vilesley Hu MD Active LORTAB 7.5-500 MG/15ML ORAL ELIXIR 7.5 ml po q 4 hour prn cough HYDROCODONE-ACETAMINOPHEN 21634260650 No Longer Active Carlton Hu MD Active PREDNISONE 20 MG ORAL TABLET 1 po bid 3 days, then 1 po q day 3 days PREDNISONE 42206566897 No Longer Active Carlton Hu MD Active CEFDINIR 300 MG ORAL CAPSULE by mouth twice a day 2011 CEFDINIR 11504202167 No Longer Active Carlton Hu MD Acti ve CEFDINIR 300 MG ORAL CAPSULE by mouth twice a day 2010 CEFDINIR 31948245941 No Longer Active Carlton Hu MD Acti ve CEFDINIR 300 MG ORAL CAPSULE by mouth twice a day 2010 CEFDINIR 73200645818 No Longer Active Carlton Hu MD Acti ve TESSALON PERLES 100 MG ORAL CAPSULE 1 tablet by mouth 3 times daily as needed for cough BENZONATATE 88251694905 No Longer Active Carlton Hu MD Active CEFDINIR 300 MG ORAL CAPSULE by mouth twice a day 2010 CEFDINIR 24647585505 No Longer Active Carlton Hu MD Acti ve ZITHROMAX Z-REYNA 250 MG ORAL TABLET 2 today, then 1 daily for 4 d ays AZITHROMYCIN 41272634623 No Longer Active Hugo Restrepo MD Active TESSALON PERLES 100 MG ORAL CAPSULE 1 tablet by mouth 3 times daily as needed for cough TESSALON PERLES 100 MG ORAL CAPSULE 16659 7 BENZONATATE Inactive PREDNISONE 20 MG ORAL TABLET 1 po bid 3 days, then 1 po q day 3 days PREDNISONE 20 MG ORAL TABLET 330161 PREDNISONE [place] ctive LORTAB 7.5-500 MG/15ML ORAL ELIXIR 7.5 [...] cough CHERATUSSIN AC 100-10 MG/5ML ORAL SYRUP 218394 GUAIFENESIN-CODEINE Inactive ACETAMINOPHEN-CODEINE #3 300-30 MG ORAL TABLET 1 tablet po q 4-6 hrs prn pain ACETAMINOPHEN-CODEINE #3 300-30 MG ORAL TABLET ACETAMINOPHEN-CODEINE Inactive HYDROCODONE-ACETAMINOPHEN 5-325 MG ORAL TABLET 1 po q 6hr PRN co ugh HYDROCODONE-ACETAMINOPHEN 5-325 MG ORAL TABLET 718432 HYDROCODONE-ACETAMINOPHEN Inactive AVELOX 400 MG ORAL TABLET 1 tab by mouth daily AVELOX 400 MG ORAL TABLET 484173 MOXIFLOXACIN HCL Inactive CHERATUSSIN AC 100-10 MG/5ML ORAL SYRUP 1 tsp by mouth every 4 hours as needed for cough CHERATUSSIN AC 100-10 MG/5ML ORAL SYRUP 9 19981 GUAIFENESIN-CODEINE Inactive TERBINAFINE HCL 250 MG ORAL TABLET 1 qDay 07/08 TERBINAFINE HCL 250 MG ORAL TABLET 841852 TERBINAFINE HCL Inactive CHERATUSSIN AC 100-10 MG/5ML ORAL SYRUP 1 tsp by mouth every 4 hours as needed for cough CHERATUSSIN AC 100-10 MG/5ML ORAL SYRUP 9 34162 GUAIFENESIN-CODEINE Inactive ACETAMINOPHEN-CODEINE #3 300-30 MG ORAL TABLET 1 PO Q 4-6 HRS MD N PAIN ACETAMINOPHEN-CODEINE #3 300-30 MG ORAL TABLET ACETAMINOPHEN-CODEINE Inactive CHERATUSSIN AC 100-10 MG/5ML ORAL SYRUP 1 tsp by mouth every 4 hours as needed for cough CHERATUSSIN AC 100-10 MG/5ML ORAL SYRUP 9 14972 GUAIFENESIN-CODEINE Inactive AUGMENTIN 875-125 MG ORAL TABLET 1 tab by mouth twice daily with food AUGMENTIN 875-125 MG ORAL TABLET 970071 AMOXICIL MADELINE-POT CLAVULANATE Inactive CHERATUSSIN AC 100-10 MG/5ML ORAL SYRUP take one tsp po Q 6h ours prn cough CHERATUSSIN AC 100-10 MG/5ML ORAL SYRUP 903732 GUAIFENESIN-CODEINE Inactive PROPRANOLOL HCL 60 MG ORAL TABLET 1 PO Q D PROPRANOLOL HCL 60 MG ORAL TABLET 595533 PROPRANOLOL HCL Inactive TOPAMAX 50 MG ORAL TABLET take 1 tab po BID for migraines. 07/02 TOPAMAX 50 MG ORAL TABLET 425036 TOPIRAMATE Inacti ve TOPAMAX 25 MG ORAL TABLET 1 qHS x 1 week, then 1 BID x 1 week, then 1 qAM and 2 qHS x 1 week, then 2 BID (migraine prevention) TOPAMAX 25 MG ORAL TABLET 488491 TOPIRAMATE Inactive LYRICA 75 MG ORAL CAPSULE TAKE 1 CAPSULE BY MOUTH TWICE DAILY LYRICA 75 MG ORAL CAPSULE PREGABALIN Inactive SYMBICORT 160-4.5 MCG/ACT INHALATION AEROSOL 2 puffs bid wit h rinse after SYMBICORT 160-4.5 MCG/ACT INHALATION AEROSOL BUDESONIDE- FORMOTEROL FUMARATE Inactive PROMETHAZINE-CODEINE 6.25-10 MG/5ML ORAL SYRUP 1 tsp b y mouth every 8 hours prn cough PROMETHAZINE-CODEINE 6.25-10 MG/ 5ML ORAL SYRUP 323684 PROMETHAZINE-CODEINE Inactive CYMBALTA 30 MG ORAL CAPSULE DELAYED RELEASE PARTICLES 1 cap by mouth daily CYMBALTA 30 MG ORAL CAPSULE DELAYED RELE ASE PARTICLES 113965 DULOXETINE HCL Inactive PREMARIN 0.625 MG ORAL TABLET TAKE 1 TAB BY MOUTH DAILY PREMARIN 0.625 MG ORAL TABLET ESTROGENS CONJUGATED Inactive CHERATUSSIN AC 100-10 MG/5ML ORAL SYRUP 1 tsp by mouth every 4 hours as needed for cough CHERATUSSIN AC 100-10 MG/5ML ORAL SYRUP 9 28671 GUAIFENESIN-CODEINE Inactive PROMETHAZINE-CODEINE 6.25-10 MG/5ML ORAL SYRUP 1 tsp b y mouth every 6 hours if needed for cough PROMETHAZINE-CODEINE 6.25-10 MG/5ML ORAL SYRUP 616800 PROMETHAZINE-CODEINE Inactive CHERATUSSIN AC 100-10 MG/5ML ORAL SYRUP 1 tsp by mouth every 4 hours as needed for cough CHERATUSSIN AC 100-10 MG/5ML ORAL SYRUP 9 14233 GUAIFENESIN-CODEINE Inactive FLUTICASONE PROPIONATE 50 MCG/ACT NASAL SUSPENSION 1 t o 2 sprays each nostril daily FLUTICASONE PROPIONATE 50 MCG/AC T NASAL SUSPENSION 6856819 FLUTICASONE PROPIONATE Inactive PREDNISONE 20 MG ORAL TABLET 3 tab PO qd x 2d, 2 tab P O qd x 2d, 1 tab PO qd x 2d, 1/2 tab PO qd x 2d PREDNISONE 20 MG ORAL TAB LET 292402 PREDNISONE Inactive LEVOFLOXACIN 500 MG ORAL TABLET 1 tab PO daily x 10 days LEVOFLOXACIN 500 MG ORAL TABLET 227177 LEVOFLOXACIN Inactive CYCLOBENZAPRINE HCL 10 MG ORAL TABLET 1 tablet by mouth BID prn had pain CYCLOBENZAPRINE HCL 10 MG ORAL TABLET 003221 CYCLOBENZAPRINE HCL Inactive ZOCOR 40 MG ORAL TABLET 1 tab by mouth daily 4 ZOCOR 40 MG ORAL TABLET 087714 SIMVASTATIN Inactive TUSSIONEX PENNKINETIC ER 10-8 MG/5ML [...] FLUTICASONE PROPIO EFE 50 MCG/ACT NASAL SUSPENSION 0566909 FLUTICASONE PROPIONATE Inactive TUSSIONEX PENNKINETIC ER 10-8 [...] three days PREDNISONE 20 MG ORAL TABLET 415116 PREDNIS ONE Inactive PROAIR HFA 108 (90 BASE) MCG/ACT INHALATION AEROSOL SO LUTION 2 puffs four times a day as needed PROAIR HFA 108 (90 B ASE) MCG/ACT INHALATION AEROSOL SOLUTION ALBUTEROL SULFATE Inactive ZITHROMAX Z-REYNA 250 MG ORAL TABLET 2 today, then 1 daily for 4 d ays ZITHROMAX Z-REYNA 250 MG ORAL TABLET 950383 AZITHROMYCIN Inactive CEFDINIR 300 MG ORAL CAPSULE by mouth twice a day 2010 CEFDINIR 300 MG ORAL CAPSULE 789179 CEFDINIR Inactive CEFDINIR 300 MG ORAL CAPSULE by mouth twice a day 2010 CEFDINIR 300 MG ORAL CAPSULE 599913 CEFDINIR Inactive CEFDINIR 300 MG ORAL CAPSULE by mouth twice a day 2010 CEFDINIR 300 MG ORAL CAPSULE 114906 CEFDINIR Inactive CEFDINIR 300 MG ORAL CAPSULE by mouth twice a day 2011 CEFDINIR 300 MG ORAL CAPSULE 999600 CEFDINIR Inactive ZITHROMAX 250 MG ORAL TABLET 2 po today, then 1 po q days 2-5 20 03/07/07 ZITHROMAX 250 MG ORAL TABLET 320756 AZITHROMYCIN Greer ctive CEFDINIR 300 MG ORAL CAPSULE by mouth twice a day 2011 CEFDINIR 300 MG ORAL CAPSULE 683020 CEFDINIR Inactive PREDNISONE 20 MG ORAL TABLET 2 tabs daily for 3 days, 1 tab daily for 3 days, 1/2 tab daily for 2 days PREDNISONE 20 MG ORAL T ABLET 971396 PREDNISONE Inactive AVELOX 400 MG ORAL TABLET 1 tab by mouth daily AVELOX 400 MG ORAL TABLET 088774 MOXIFLOXACIN HCL Inactive AVELOX 400 MG ORAL TABLET 1 tab by mouth daily AVELOX 400 MG ORAL TABLET 941931 MOXIFLOXACIN HCL Inactive PREDNISONE 20 MG ORAL TABLET Take 3 tabs daily for 3 d ays, 2 tabs daily for 3 days, 1 tab daily for 3 days, 1/2 tab daily for 3 days 11/07 PREDNISONE 20 MG ORAL TABLET 642006 PREDNISONE Inactive LEVAQUIN 500 MG ORAL TABLET take one po QD LEVAQUIN 500 MG ORAL TABLET 633902 LEVOFLOXACIN Inactive AZITHROMYCIN 250 MG ORAL TABLET 2 po qd x 1 day, then 1 po q d x 4 days AZITHROMYCIN 250 MG ORAL TABLET 955429 AZITHROMY GIOVANNI Inactive MEDROL 4 MG ORAL TABLET THERAPY PACK 6 tabs on day 1, 5 tabs on day 2, 4 tabs on day 3, 3 tabs on day 4, 2 tabs on day 5, 1 tab on day 6 2013 MEDROL 4 MG ORAL TABLET THERAPY PACK 733892 METHYLPREDNISOLONE Greer ctive CHERATUSSIN AC 100-10 MG/5ML ORAL SYRUP 5ml po q6hr PRN Cough 20 13/04/14 CHERATUSSIN AC 100-10 MG/5ML ORAL SYRUP 092066 GUAIFENE SIN-CODEINE Inactive TRIAMCINOLONE ACETONIDE 0.1 % EXTERNAL CREAM apply three roger es daily prn rash TRIAMCINOLONE ACETONIDE 0.1 % EXTERNAL CREAM 101 4314 TRIAMCINOLONE ACETONIDE Inactive AZITHROMYCIN 250 MG ORAL TABLET 2 po qd x 1 day, then 1 po q d x 4 days AZITHROMYCIN 250 MG ORAL TABLET 817837 AZITHROMY GIOVANNI Inactive MEDROL 4 MG ORAL TABLET THERAPY PACK 6 pills x 1 day, then 5 pills x 1 day then 4 pills x 1 day, then 3 pills x 1 day, then 2 pills x 1 day, then 1 pill x 1 day, then stop MEDROL 4 MG ORAL TABLET THERAPY PACK 695499 METHYLPREDNISOLONE Inactive AMOXICILLIN 500 MG ORAL CAPSULE 1 tab by mouth 3 times daily x 10 days AMOXICILLIN 500 MG ORAL CAPSULE 448215 AMOXICILL IN Inactive AMOXICILLIN 500 MG ORAL CAPSULE 1 tab by mouth 3 times daily x 10 days AMOXICILLIN 500 MG ORAL CAPSULE 703004 AMOXICILL IN Inactive ZITHROMAX 250 MG ORAL TABLET 2 po today, then 1 po q days 2-5 20 12/08/14 ZITHROMAX 250 MG ORAL TABLET 931969 AZITHROMYCIN Greer ctive AUGMENTIN 875-125 MG ORAL TABLET 1 po BID x 10 days 20 13/01/20 AUGMENTIN 875-125 MG ORAL TABLET 399221 AMOXICILLIN-POT CLAVULANATE Inactive ZITHROMAX Z-REYNA 250 MG ORAL TABLET 2 today, then 1 daily for 4 d ays ZITHROMAX Z-REYNA 250 MG ORAL TABLET 930489 AZITHROMYCIN Inactive ZITHROMAX 250 MG ORAL TABLET 2 po today, then 1 po q days 2-5 20 14/03/21 ZITHROMAX 250 MG ORAL TABLET 679442 AZITHROMYCIN Greer ctive ZITHROMAX Z-REYNA 250 MG ORAL TABLET 2 today, then 1 daily for 4 d ays ZITHROMAX Z-REYNA 250 MG ORAL TABLET 611022 AZITHROMYCIN Inactive CEFDINIR 300 MG ORAL CAPSULE 1 po BID x 10 days 06/21 CEFDINIR 300 MG ORAL CAPSULE 452806 CEFDINIR Inactive ZITHROMAX 250 MG ORAL TABLET 2 po today, then 1 po q days 2-5 20 13/08/10 ZITHROMAX 250 MG ORAL TABLET 520842 AZITHROMYCIN Greer ctive LEVAQUIN 500 MG ORAL TABLET 1 tablet by mouth daily 13/09/24 LEVAQUIN 500 MG ORAL TABLET 842853 LEVOFLOXACIN Inactive SINGULAIR 10 MG ORAL TABLET 1 po qday for allergies 20 14/01/12 SINGULAIR 10 MG ORAL TABLET [id number] MONTELUKAST SODIUM Inactive AMOXICILLIN 500 MG ORAL CAPSULE 2 po BID x 10 days 201 09/29/08 AMOXICILLIN 500 MG ORAL CAPSULE 451225 AMOXICILLIN Inactive PREDNISONE 20 MG ORAL TABLET 2 tabs daily for 3 days, 1 tab daily for 3 days, 1/2 tab daily for 2 days PREDNISONE 20 MG ORAL T ABLET 033115 PREDNISONE Inactive ZITHROMAX Z-REYNA 250 MG ORAL TABLET 2 today, then 1 daily for 4 d ays ZITHROMAX Z-REYNA 250 MG ORAL TABLET 088710 AZITHROMYCIN Inactive PREDNISONE 20 MG ORAL TABLET 2 tabs daily for 3 days, 1 tab daily for 3 days, 1/2 tab daily for 2 days PREDNISONE 20 MG ORAL T ABLET 381491 PREDNISONE Inactive ZITHROMAX 250 MG ORAL TABLET 2 po today, then 1 po q days 2-5 20 14/09/04 ZITHROMAX 250 MG ORAL TABLET 017196 AZITHROMYCIN [place] [facility] AMOXICILLIN 500 MG ORAL CAPSULE 1 cap by mouth three times a day AMOXICILLIN 500 MG ORAL CAPSULE 903427 AMOXICILLIN Inactive TERBINAFINE HCL 250 MG ORAL TABLET 1 qDay for nail fungus 7 TERBINAFINE HCL 250 MG ORAL TABLET 441344 TERBINAFINE HCL Inact nael AUGMENTIN 875-125 MG ORAL TABLET 1 po BID x 10 days 16/03/22 AUGMENTIN 875-125 MG ORAL TABLET 916740 AMOXICILLIN-POT CLAVULANATE Inactive PREDNISONE 20 MG ORAL TABLET 2 po qd x 5 days PREDNISONE 20 MG ORAL TABLET [id number] PREDNISONE Inactive AZITHROMYCIN 250 MG ORAL TABLET 2 po qd x 1 day, then 1 po q d x 4 days AZITHROMYCIN 250 MG ORAL TABLET 475587 AZITHROMY GIOVANNI Inactive Vital Signs Date Name [...] - Chem istry sodium, serum 139 mmol/L [id number] 5596/03/19 potassium, serum 3.6 mmol/L 3.5-5.2 chloride, serum 100 mmol/L 98-107 carbon dioxide, venous blood 30.3 mmol/L 21.0-32 .0 blood glucose 101 mg/dL 65-110 calcium, serum 9.4 mg/dL 8.5-10.1 urea nitrogen, blood 10 mg/dL 7-18 creatinine, serum 0.96 mg/dL 0.60-1.30 sodium, serum 139 mmol/L 299-055 4186/10/12 potassium, serum 3.8 mmol/L 3.5-5.2 chloride, serum 102 mmol/L 98-107 carbon dioxide, venous blood 29.4 mmol/L 21.0-32 .0 blood glucose 103 mg/dL 65-95 calcium, serum 8.8 mg/dL 8.5-10.1 urea nitrogen, blood 10 mg/dL 7-18 creatinine, serum 0.97 mg/dL 0.60-1.30 Estimated Glomerular Filtration Rate (calc) 62 (?) mL/min/1.73m2 = OR > 60 mL/min Encounters Code Encounter Date Provider Facility [id number] Vst-Est Level III 11:12:16 CDT Br tami Bess DO [facility] CPT-87413 Level 3 Est. Patient 11:34:49 MARINE OILER Perez Mora MD [facility] CPT-19470 Level 4 Est. Patient 09:51:32 MARINE OILER Carlton rich MD [facility] CPT-26913 Level 3 Est. Patient 10:26:00 MARINE OILER Elise stephenson APRN [facility] CPT-16259 Level 3 Est. Patient 13:35:41 MARINE OILER Carlton rich MD [facility] CPT-11972 Level 3 Est. Patient 10:03:52 MARINE OILER Carlton rich MD [facility] CPT-11721 Level 3 Est. Patient 12:17:50 CDT Hugo Restrepo MD [facility] CPT-34578 Level 3 Est. Patient 13:42:38 CDT Elise Are ll [facility] CPT-01036 Level 3 Est. Patient 13:23:51 CDT Diya cobian [facility] CPT-82854 Level 3 Est. Patient 14:22:19 MARINE OILER Diya cobian [facility] CPT-70660 Level 3 Est. Patient 10:11:46 CDT Carlton rich MD [facility] CPT-34684 Level 3 Est. Patient 17:29:43 CDT Elise Are ll [facility] CPT-18983 Level 3 Est. Patient 11:58:06 CDT Elise Are [facility] CPT-01600 Level 4 Est. Patient 14:36:51 CDT Carlton rich MD [facility] CPT-83815 Level 3 Est. Patient 18:16:00 MARINE OILER Blaine HERNANDEZ [facility] CPT-21447 Level 3 Est. Patient 09:45:49 MARINE OILER Carlton rich MD [facility] CPT-88611 Level 3 Est. Patient 13:19:20 CDT Carlton rich MD [facility] CPT-24203 Level 3 Est. Patient 13:06:43 CDT Ridge tam DO [facility] CPT-26435 Level 3 Est. Patient 10:03:07 CDT Perez Mora MD [facility] CPT-76730 Level 3 Est. Patient 19:50:35 MARINE OILER Carlton rich MD [facility]-88506 Level 4 Est. Patient 18:05:01 MARINE OILER Carlton rich MD [facility]-44452 Level 3 Est. Patient 10:45:55 MARINE OILER Hugo Restrepo MD [facility]-35660 Level 3 Est. Patient 14:12:49 CDT Griffin HERNANDEZ [facility]-63075 Level 3 Est. Patient 17:37:24 CDT Carlton rich MD [facility]-12298 Level 3 Est. Patient 16:51:54 CDT Carlton rich MD [facility]-00760 Level 3 Est. Patient 12:18:11 CDT Hugo Restrepo MD [facility]-61538 Level 3 Est. Patient 11:30:25 CDT Marcy crisostomo MD PhD [facility]-30011 Level 3 Est. Patient 12:00:47 MARINE OILER Carlton rich MD [facility]-40606 Level 3 Est. Patient 16:31:06 MARINE OILER Carlton rich MD [facility]-84634 Level 3 Est. Patient 16:23:24 MARINE OILER Ridge tam DO [facility]-97413 Level 3 Est. Patient 12:34:12 CDT Carlton rich MD [facility] CPT-32327 Level 2 Est. Patient 15:43:33 CDT Robi armstrong MD -51662 Level 4 Est. Patient 14:04:44 CDT Carlton rich MD [facility]-00726 Level 3 Est. Patient 05:47:59 CDT Ridge tam [facility]-28782 Level 3 Est. Patient 13:12:53 MARINE OILER Carlton rich MD [facility] CPT-43833 Level 3 Est. Patient 14:26:53 CDT Hugo [...] CPT-J1100 Decadron 6mg (Dexamethasone) 14:32:13 CDT 2 CPT-02807 Hip bilat min 2V w AP pelvis 13:16:20 CDT 2 CPT-55684 Pelvis only 13:07:33 CDT CPT-34077 Spec Collection and Handling Fee 11:25:12 C DT CPT-77767 Fluzone Quadrivalent Intramuscular Suspe nsion 0.5 ML 14:31:55 CDT CPT-39718 Abx/Therapy Injection 13:28:47 MARINE OILER CPT-J2930 Solu Medrol 125 mg (Methyl Prednisolone Sodium Succinate) 12:00:47 MARINE OILER CPT-86833 Venipuncture Draw Fee 11:33:31 CDT CPT-85749 EKG Trac and Interp 11:21:09 CDT CPT-72155 Chest 2V Frontal and Lat 11:21:09 CDT 12/15 CPT-02819 Venipuncture Draw Fee 08:02:34 CDT CPT-00625 Chest 2V Frontal and Lat 05:47:59 CDT 06/05
--- OUTSIDE RECORDS SUMMARY | 2019-10-08 09:30 | XMS REPORT | Clinical Summary ---
Author Author Caitlin, Juliana Martinez Organization [facility] Address Unknown Phone Unavailable [...] PhD Shortness of breath FIBROMYALGIA 729.1 Active aCrlton Hu MD Myalgia and myositis, unspecified DIVERTICULOSIS, [...] female climacteric states Headache, chronic 784.0 Active aCrlton Hu MD Headache Dermatitis, atopic 691.8 Active [...] po q d x 4 days AZITHROMYCIN 79447797560 No Longer Active Ridge Bess DO Active PREDNISONE 20 MG ORAL TABLET two tabs by mouth today, then one tab by mouth days two and three and four PREDNISONE 96491559414 Active Lyndsay Mora MD Active PREDNISONE 20 MG ORAL TABLET 2 po qd x 5 days P REDNISONE 41529219139 No Longer Active Perez Mora MD Active PROAIR HFA 108 (90 BASE) MCG/ACT INHALATION AEROSOL SO LUTION 2 puffs four times a day as needed ALBUTEROL SULFATE 91953244709 No Long er Active Becky FUENTES Active ASPIRIN 81 MG ORAL TABLET 1 po qd ASPIRIN 82543510256 Active Carlton Hu MD Active PREDNISONE 20 MG ORAL TABLET 1 tab twice daily for 3 d ay, then one daily for three days PREDNISONE 30117328442 No Longer Active Carlton Hu MD Active AUGMENTIN 875-125 MG ORAL TABLET 1 po BID x 10 days 20 16/03/22 AMOXICILLIN-POT CLAVULANATE 79407701978 No Longer Active Elise Garcia APRN Active TERBINAFINE HCL 250 MG ORAL TABLET 1 qDay for nail fungus 7 TERBINAFINE HCL 90689301090 No Longer Active Carlton Hu MD A ctive TUSSIONEX PENNKINETIC ER 10-8 MG/5ML ORAL SUSPENSION E XTENDED RELEASE 5ml po q12hr PRN Cough HYDROCOD POLST-CHLORPHEN POLST 78754165821 Active Perez Mora MD Active AMOXICILLIN 500 MG ORAL CAPSULE 1 cap by mouth three times a day AMOXICILLIN 43976354393 No Longer Active Carlton Hu MD Active ELMIRON 100 MG ORAL CAPSULE 2 tablets in the am and 1 tablet at hs PENTOSAN POLYSULFATE SODIUM 00607967680 No Longer Active Robert jade Hu MD Active MUCINEX D 60-600 MG ORAL TABLET EXTENDED RELEASE 12 HOUR 1 t ab po q am PSEUDOEPHEDRINE-GUAIFENESIN 70940536954 No Longer Act nael Carlton Hu MD Active MUCINEX DM MAXIMUM STRENGTH 60-1200 MG ORAL TABLET EXT ENDED RELEASE 12 HOUR 1 tab po q am DEXTROMETHORPHAN-GUAIFENESIN 47294729613 No Longer Active Carlton Hu MD Active TUSSIONEX PENNKINETIC ER 10-8 MG/5ML ORAL SUSPENSION E XTENDED RELEASE 5ml po q12hr PRN Cough HYDROCOD POLST-CHLORPHEN POLST 5 0536810044 No Longer Active Carlton Hu MD Active POTASSIUM CHLORIDE ER 20 MEQ ORAL TABLET EXTENDED RELE ASE Take 1 by mouth 4 times daily for 7 days POTASSIUM CHLORIDE 36225386396 No Longer Active Carlton Hu MD Active ZITHROMAX 250 MG ORAL TABLET 2 po today, then 1 po q days 2-5 14/09/04 AZITHROMYCIN 03116126062 No Longer Active Elise Garcia APRN Active TUSSIONEX PENNKINETIC ER 10-8 MG/5ML ORAL SUSPENSION E XTENDED RELEASE 5 ml twice a day as needed for cough HYDROCOD POLST-CHLORPH EN POLST 18436457611 No Longer Active Elise Garcia APRN Active MONTELUKAST SODIUM 10 MG ORAL TABLET 1 po daily for Allergy MONTELUKAST SODIUM 33853307509 Active Carlton Hu MD Ac tive TUSSIONEX PENNKINETIC ER 10-8 MG/5ML ORAL SUSPENSION E XTENDED RELEASE 5ml po q12hr PRN Cough HYDROCOD POLST-CHLORPHEN POLST 5 3980197715 No Longer Active Hugo Restrepo MD Active GABAPENTIN 100 MG ORAL CAPSULE 1 po BID for fibromyalgia GABAPENTIN 03425240777 Active Carlton Hu MD Active LYRICA 100 MG ORAL CAPSULE Take 1 tab po BID for fibromyalgia 20 11/08/21 PREGABALIN 55718926134 No Longer Active Elise Garcia BUSINESS MANAGEMENT MANAGER A ctive PREDNISONE 20 MG ORAL TABLET 2 tabs daily for 3 days, 1 tab daily for 3 days, 1/2 tab daily for 2 days PREDNISONE 41122776573 No Longer Active Jillina Frazell BUSINESS MANAGEMENT MANAGER Active TUSSIONEX PENNKINETIC ER 10-8 MG/5ML ORAL SUSPENSION E XTENDED RELEASE 5 mL PO q 12 hrs PRN cough HYDROCOD POLST-CHLORPHEN POLST 963788 04863 No Longer Active Jillina Frazell BUSINESS MANAGEMENT MANAGER Active FLUTICASONE PROPIONATE 50 MCG/ACT NASAL SUSPENSION 2 s prays each nostril daily until bottle is empty FLUTICASONE PROPIONATE 440943641 99 No Longer Active Jillina Frazell BUSINESS MANAGEMENT MANAGER Active ASMANEX 60 METERED DOSES 220 MCG/INH INHALATION AEROSO L POWDER BREATH ACTIVATED 1 puff bid with rinse after MOMETASONE FUROATE 3979990 4102 No Longer Active Jillina Frazell BUSINESS MANAGEMENT MANAGER Active ZITHROMAX Z-REYNA 250 MG ORAL TABLET 2 today, then 1 daily for 4 d ays AZITHROMYCIN 79492529878 No Longer Active Elise Garcia BUSINESS MANAGEMENT MANAGER Active TUSSIONEX PENNKINETIC ER 10-8 MG/5ML ORAL SUSPENSION E XTENDED RELEASE 5ml po q12hr PRN Cough HYDROCOD POLST-CHLORPHEN POLST 5 9996918161 No Longer Active Elise Garcia BUSINESS MANAGEMENT MANAGER Active PREDNISONE 20 MG ORAL TABLET 2 tabs daily for 3 days, 1 tab daily for 3 days, 1/2 tab daily for 2 days PREDNISONE 76610163850 No Longer Active Jillina Frazell BUSINESS MANAGEMENT MANAGER Active AMOXICILLIN 500 MG ORAL CAPSULE 2 po BID x 10 days 201 09/29/08 AMOXICILLIN 34906317067 No Longer Active Jillina Frazell BUSINESS MANAGEMENT MANAGER Act nael SINGULAIR 10 MG ORAL TABLET 1 po qday for allergies 20 14/01/12 MONTELUKAST SODIUM 31394426426 No Longer Active Carlton Hu MD Active LEVAQUIN 500 MG ORAL TABLET 1 tablet by mouth daily 20 13/09/24 LEVOFLOXACIN 71353873724 No Longer Active Carlton Hu MD Acti ve FLUTICASONE PROPIONATE 50 MCG/ACT NASAL SUSPENSION 2 s prays each nostril daily for 2 weeks, then 1 spray each nostril daily. FLUTICASONE PROPIONATE 16803868353 Active Elise Areseema BUSINESS MANAGEMENT MANAGER Active ZITHROMAX 250 MG ORAL TABLET 2 po today, then 1 po q days 2-5 20 13/08/10 AZITHROMYCIN 42907278224 No Longer Active Elise Garcia APRN Active XANAX 0.5 MG ORAL TABLET one tablet by mouth daily prn anxiety 2015 ALPRAZOLAM 54968552766 Active ALFREDO Holly Active CYMBALTA 30 MG ORAL CAPSULE DELAYED RELEASE PARTICLES 1 cap by mouth daily for depression DULOXETINE HCL 72455378805 Active Carlton beltrán MD Active CEFDINIR 300 MG ORAL CAPSULE 1 po BID x 10 days CEFDINIR 21342457085 No Longer Active Carlton Hu MD Active ZOCOR 40 MG ORAL TABLET 1 tab by mouth daily SI MVASTATIN 51821249985 No Longer Active Carlton Hu MD Active CYCLOBENZAPRINE HCL 10 MG ORAL TABLET 1 tablet by mouth BID prn had pain CYCLOBENZAPRINE HCL 61109173343 No Longer Active Jayden Hu MD Active LEVOFLOXACIN 500 MG ORAL TABLET 1 tab PO daily x 10 days LEVOFLOXACIN 36354463459 No Longer Active Carlton Hu MD Acti ve PREDNISONE 20 MG ORAL TABLET 3 tab PO qd x 2d, 2 tab P O qd x 2d, 1 tab PO qd x 2d, 1/2 tab PO qd x 2d PREDNISONE 05308467537 No Lo nger Active Carlton Hu MD Active FLUTICASONE PROPIONATE 50 MCG/ACT NASAL SUSPENSION 1 t o 2 sprays each nostril daily FLUTICASONE PROPIONATE 10973142522 No Longer Ac tive Blaine HERNANDEZ Active CHERATUSSIN AC 100-10 MG/5ML ORAL SYRUP 1 tsp by mouth every 4 hours as needed for cough GUAIFENESIN-CODEINE 03129844624 No Longe r Active Blaine HERNANDEZ Active PROMETHAZINE-CODEINE 6.25-10 MG/5ML ORAL SYRUP 1 tsp b y mouth every 6 hours if needed for cough PROMETHAZINE-CODEINE 61126077229 No Longer Active Blaine HERNNADEZ Active CHERATUSSIN AC 100-10 MG/5ML ORAL SYRUP 1 tsp by mouth every 4 hours as needed for cough GUAIFENESIN-CODEINE 47051149119 No Longe r Active Blaine HERNANDEZ Active ZITHROMAX Z-REYNA 250 MG ORAL TABLET 2 today, then 1 daily for 4 d ays AZITHROMYCIN 45613775215 No Longer Active Columba Raida Act nael ZITHROMAX 250 MG ORAL TABLET 2 po today, then 1 po q days 2-5 20 14/03/21 AZITHROMYCIN 12309781420 No Longer Active Carlton Hu MD Active ZITHROMAX Z-REYNA 250 MG ORAL TABLET 2 today, then 1 daily for 4 d ays AZITHROMYCIN 62991080623 No Longer Active Columba Raida Act nael AUGMENTIN 875-125 MG ORAL TABLET 1 po BID x 10 days 13/01/20 AMOXICILLIN-POT CLAVULANATE 88801891947 No Longer Active Diya De Guzman APRN Active ZITHROMAX 250 MG ORAL TABLET 2 po today, then 1 po q days 2-5 20 12/08/14 AZITHROMYCIN 08344110966 No Longer Active Carlton Hu MD Active TRAMADOL HCL 50 MG ORAL TABLET 1 po tid with ES Tylenol TRAMADOL HCL 49453941155 Active ALFREDO Holly Active PREMARIN 0.625 MG ORAL TABLET TAKE 1 TAB BY MOUTH DAILY ESTROGENS CONJUGATED 93820563414 No Longer Active Ridge Bess DO A ctive CYMBALTA 30 MG ORAL CAPSULE DELAYED RELEASE PARTICLES 1 cap by mouth daily DULOXETINE HCL 80995967786 No Longer Active Ridge tam DO Active AMOXICILLIN 500 MG ORAL CAPSULE 1 tab by mouth 3 times daily x 10 days AMOXICILLIN 19669359599 No Longer Active Carlton bustamante MD Active AMOXICILLIN 500 MG ORAL CAPSULE 1 tab by mouth 3 times daily x 10 days AMOXICILLIN 63045847269 No Longer Active Carlton bustamante MD Active PROMETHAZINE-CODEINE 6.25-10 MG/5ML ORAL SYRUP 1 tsp b y mouth every 8 hours prn cough PROMETHAZINE-CODEINE 38169003081 No Longer Acti ve Carlton Hu MD Active MEDROL 4 MG ORAL TABLET THERAPY PACK 6 pills x 1 day, then 5 pills x 1 day then 4 pills x 1 day, then 3 pills x 1 day, then 2 pills x 1 day, then 1 pill x 1 day, then stop METHYLPREDNISOLONE 94490164974 No Long er Active Perez Mora MD Active AZITHROMYCIN 250 MG ORAL TABLET 2 po qd x 1 day, then 1 po q d x 4 days AZITHROMYCIN 94748368357 No Longer Active Perez Ambriz MD Active SYMBICORT 160-4.5 MCG/ACT INHALATION AEROSOL 2 puffs bid wit h rinse after BUDESONIDE-FORMOTEROL FUMARATE 06003619109 N o Longer Active Perez Mora MD Active LYRICA 75 MG ORAL CAPSULE TAKE 1 CAPSULE BY MOUTH TWICE DAILY PREGABALIN 84529418291 No Longer Active Carlton Hu MD Acti ve TOPAMAX 25 MG ORAL TABLET 1 qHS x 1 week, then 1 BID x 1 week, then 1 qAM and 2 qHS x 1 week, then 2 BID (migraine prevention) T OPIRAMATE 86612369050 No Longer Active Jerica FUENTES Active TOPAMAX 50 MG ORAL TABLET take 1 tab po BID for migraines. 07/02 TOPIRAMATE 41636764292 No Longer Active Jerica FUENTES Active TOPAMAX 100 MG ORAL TABLET Take 1 tablet po bid TO PIRAMATE 88575054845 Active Carlton Hu MD Active TRIAMCINOLONE ACETONIDE 0.1 % EXTERNAL CREAM apply three roger es daily prn rash TRIAMCINOLONE ACETONIDE 32726293071 No Longer Active Carlton Hu MD Active PAXIL 40 MG ORAL TABLET take 1 tab po qday for depression 0 PAROXETINE HCL 06472221159 Active ALFERDO Hloly Active CHERATUSSIN AC 100-10 MG/5ML ORAL SYRUP 5ml po q6hr PRN Cough 20 13/04/14 GUAIFENESIN-CODEINE 05183603942 No Longer Active Carlton Hu MD Active MEDROL 4 MG ORAL TABLET THERAPY PACK 6 tabs on day 1, 5 tabs on day 2, 4 tabs on day 3, 3 tabs on day 4, 2 tabs on day 5, 1 tab on day 6 2013 METHYLPREDNISOLONE 70657851619 No Longer Active Perez Mora MD Active AZITHROMYCIN 250 MG ORAL TABLET 2 po qd x 1 day, then 1 po q d x 4 days AZITHROMYCIN 28293647648 No Longer Active Perez Ambriz MD Active PROPRANOLOL HCL 60 MG ORAL TABLET 1 PO Q D PROPRANOLOL HCL 25892668088 No Longer Active Perez Mora MD Activ e CHERATUSSIN AC 100-10 MG/5ML ORAL SYRUP take one tsp po Q 6h ours prn cough GUAIFENESIN-CODEINE 07477204050 No Longer Active Zia Mora MD Active AUGMENTIN 875-125 MG ORAL TABLET 1 tab by mouth twice daily with food AMOXICILLIN-POT CLAVULANATE 63167344326 No Longer Act nael Mora MD Active CHERATUSSIN AC 100-10 MG/5ML ORAL SYRUP 1 tsp by mouth every 4 hours as needed for cough GUAIFENESIN-CODEINE 93716564392 No Longe r Active Hugo Restrepo MD Active ACETAMINOPHEN-CODEINE #3 300-30 MG ORAL TABLET 1 PO Q 4-6 HRS IA N PAIN ACETAMINOPHEN-CODEINE 58025608517 No Longer Active Hugo Restrepo MD Active LEVAQUIN 500 MG ORAL TABLET take one po QD LEVO FLOXACIN 79076923333 No Longer Active Griffin HERNANDEZ Active PREDNISONE 20 MG ORAL TABLET Take 3 tabs daily for 3 d ays, 2 tabs daily for 3 days, 1 tab daily for 3 days, 1/2 tab daily for 3 days 11/07 PREDNISONE 43107376740 No Longer Active Carlton Hu MD Acti ve AVELOX 400 MG ORAL TABLET 1 tab by mouth daily MOXIFLOXACIN HCL 33008158464 No Longer Active Carlton Hu MD Active CHERATUSSIN AC 100-10 MG/5ML ORAL SYRUP 1 tsp by mouth every 4 hours as needed for cough GUAIFENESIN-CODEINE 20090932831 No Longe r Active Hugo Restrepo MD Active AVELOX 400 MG ORAL TABLET 1 tab by mouth daily MOXIFLOXACIN HCL 54274002381 No Longer Active Marcy De La Rosa MD PhD Active TERBINAFINE HCL 250 MG ORAL TABLET 1 qDay T ERBINAFINE HCL 07228768014 No Longer Active Marcy De La Rosa MD PhD Active CHERATUSSIN AC 100-10 MG/5ML ORAL SYRUP 1 tsp by mouth every 4 hours as needed for cough GUAIFENESIN-CODEINE 03390452292 No Longe r Active Marcy De La Rosa MD PhD Active AVELOX 400 MG ORAL TABLET 1 tab by mouth daily MOXIFLOXACIN HCL 03702591447 No Longer Active Marcy De La Rosa MD PhD Active HYDROCODONE-ACETAMINOPHEN 5-325 MG ORAL TABLET 1 po q 6hr PRN co ugh HYDROCODONE-ACETAMINOPHEN 92626144541 No Longer Active Marcy De La Rosa MD PhD Active PREDNISONE 20 MG ORAL TABLET 2 tabs daily for 3 days, 1 tab daily for 3 days, 1/2 tab daily for 2 days PREDNISONE 60520360459 No Longer Active Carlton Hu MD Active CEFDINIR 300 MG ORAL CAPSULE by mouth twice a day 2011 CEFDINIR 87923222927 No Longer Active Carlton Hu MD Acti ve HYDROCHLOROTHIAZIDE 25 MG ORAL TABLET 1 TAB PO DAILY HYDROCHLOROTHIAZIDE 70868880432 Active ALFREDO Holly Ac tive ACETAMINOPHEN-CODEINE #3 300-30 MG ORAL TABLET 1 tablet po q 4-6 hrs prn pain ACETAMINOPHEN-CODEINE 25750509205 No Longer Active Ridge Bess DO Active ZITHROMAX 250 MG ORAL TABLET 2 po today, then 1 po q days 2-5 20 03/07/07 AZITHROMYCIN 27472686979 No Longer Active Carlton Hu MD Active CHERATUSSIN AC 100-10 MG/5ML ORAL SYRUP take 1 tsp po q4-6 h ours prn cough GUAIFENESIN-CODEINE 23683594096 No Longer Active Jayden Hu MD Active ACETAMINOPHEN-CODEINE #3 300-30 MG ORAL TABLET 1 PO Q 4-6 HR PRN PAIN ACETAMINOPHEN-CODEINE 89399101541 No Longer Active Da vilesley Hu MD Active LORTAB 7.5-500 MG/15ML ORAL ELIXIR 7.5 ml po q 4 hour prn cough HYDROCODONE-ACETAMINOPHEN 08119030613 No Longer Active Carlton Hu MD Active PREDNISONE 20 MG ORAL TABLET 1 po bid 3 days, then 1 po q day 3 days PREDNISONE 61470802912 No Longer Active Carlton Hu MD Active CEFDINIR 300 MG ORAL CAPSULE by mouth twice a day 2011 CEFDINIR 40203578171 No Longer Active Carlton Hu MD Acti ve CEFDINIR 300 MG ORAL CAPSULE by mouth twice a day 2010 CEFDINIR 43415572080 No Longer Active Carlton Hu MD Acti ve CEFDINIR 300 MG ORAL CAPSULE by mouth twice a day 2010 CEFDINIR 82270311441 No Longer Active Carlton Hu MD Acti ve TESSALON PERLES 100 MG ORAL CAPSULE 1 tablet by mouth 3 times daily as needed for cough BENZONATATE 35624822527 No Longer Active Carlton Hu MD Active CEFDINIR 300 MG ORAL CAPSULE by mouth twice a day 2010 CEFDINIR 62380733846 No Longer Active Carlton Hu MD Acti ve ZITHROMAX Z-REYNA 250 MG ORAL TABLET 2 today, then 1 daily for 4 d ays AZITHROMYCIN 18699996509 No Longer Active Hugo Restrepo MD Active TESSALON PERLES 100 MG ORAL CAPSULE 1 tablet by mouth 3 times daily as needed for cough TESSALON PERLES 100 MG ORAL CAPSULE 40209 7 BENZONATATE Inactive PREDNISONE 20 MG ORAL TABLET 1 po bid 3 days, then 1 po q day 3 days PREDNISONE 20 MG ORAL TABLET 069444 PREDNISONE Greer ctive LORTAB 7.5-500 MG/15ML ORAL [...] cough CHERATUSSIN AC 100-10 MG/5ML ORAL SYRUP 267214 GUAIFENESIN-CODEINE Inactive ACETAMINOPHEN-CODEINE #3 300-30 MG ORAL TABLET 1 tablet po q 4-6 hrs prn pain ACETAMINOPHEN-CODEINE #3 300-30 MG ORAL TABLET ACETAMINOPHEN-CODEINE Inactive HYDROCODONE-ACETAMINOPHEN 5-325 MG ORAL TABLET 1 po q 6hr PRN co ugh HYDROCODONE-ACETAMINOPHEN 5-325 MG ORAL TABLET 909504 HYDROCODONE-ACETAMINOPHEN Inactive AVELOX 400 MG ORAL TABLET 1 tab by mouth daily AVELOX 400 MG ORAL TABLET 144056 MOXIFLOXACIN HCL Inactive CHERATUSSIN AC 100-10 MG/5ML ORAL SYRUP 1 tsp by mouth every 4 hours as needed for cough CHERATUSSIN AC 100-10 MG/5ML ORAL SYRUP 9 80922 GUAIFENESIN-CODEINE Inactive TERBINAFINE HCL 250 MG ORAL TABLET 1 qDay 07/08 TERBINAFINE HCL 250 MG ORAL TABLET 659051 TERBINAFINE HCL Inactive CHERATUSSIN AC 100-10 MG/5ML ORAL SYRUP 1 tsp by mouth every 4 hours as needed for cough CHERATUSSIN AC 100-10 MG/5ML ORAL SYRUP 9 39734 GUAIFENESIN-CODEINE Inactive ACETAMINOPHEN-CODEINE #3 300-30 MG ORAL TABLET 1 PO Q 4-6 HRS IA N PAIN ACETAMINOPHEN-CODEINE #3 300-30 MG ORAL TABLET ACETAMINOPHEN-CODEINE Inactive CHERATUSSIN AC 100-10 MG/5ML ORAL SYRUP 1 tsp by mouth every 4 hours as needed for cough CHERATUSSIN AC 100-10 MG/5ML ORAL SYRUP 9 53240 GUAIFENESIN-CODEINE Inactive AUGMENTIN 875-125 MG ORAL TABLET 1 tab by mouth twice daily with food AUGMENTIN 875-125 MG ORAL TABLET 310410 AMOXICIL MADELINE-POT CLAVULANATE Inactive CHERATUSSIN AC 100-10 MG/5ML ORAL SYRUP take one tsp po Q 6h ours prn cough CHERATUSSIN AC 100-10 MG/5ML ORAL SYRUP 174679 GUAIFENESIN-CODEINE Inactive PROPRANOLOL HCL 60 MG ORAL TABLET 1 PO Q D PROPRANOLOL HCL 60 MG ORAL TABLET 377682 PROPRANOLOL HCL Inactive TOPAMAX 50 MG ORAL TABLET take 1 tab po BID for migraines. 07/02 TOPAMAX 50 MG ORAL TABLET 324176 TOPIRAMATE Inacti ve TOPAMAX 25 MG ORAL TABLET 1 qHS x 1 week, then 1 BID x 1 week, then 1 qAM and 2 qHS x 1 week, then 2 BID (migraine prevention) TOPAMAX 25 MG ORAL TABLET 255552 TOPIRAMATE Inactive LYRICA 75 MG ORAL CAPSULE TAKE 1 CAPSULE BY MOUTH TWICE DAILY LYRICA 75 MG ORAL CAPSULE PREGABALIN Inactive SYMBICORT 160-4.5 MCG/ACT INHALATION AEROSOL 2 puffs bid wit h rinse after SYMBICORT 160-4.5 MCG/ACT INHALATION AEROSOL BUDESONIDE- FORMOTEROL FUMARATE Inactive PROMETHAZINE-CODEINE 6.25-10 MG/5ML ORAL SYRUP 1 tsp b y mouth every 8 hours prn cough PROMETHAZINE-CODEINE 6.25-10 MG/ 5ML ORAL SYRUP 930301 PROMETHAZINE-CODEINE Inactive CYMBALTA 30 MG ORAL CAPSULE DELAYED RELEASE PARTICLES 1 cap by mouth daily CYMBALTA 30 MG ORAL CAPSULE DELAYED RELE ASE PARTICLES 133564 DULOXETINE HCL Inactive PREMARIN 0.625 MG ORAL TABLET TAKE 1 TAB BY MOUTH DAILY PREMARIN 0.625 MG ORAL TABLET ESTROGENS CONJUGATED Inactive CHERATUSSIN AC 100-10 MG/5ML ORAL SYRUP 1 tsp by mouth every 4 hours as needed for cough CHERATUSSIN AC 100-10 MG/5ML ORAL SYRUP 9 29398 GUAIFENESIN-CODEINE Inactive PROMETHAZINE-CODEINE 6.25-10 MG/5ML ORAL SYRUP 1 tsp b y mouth every 6 hours if needed for cough PROMETHAZINE-CODEINE 6.25-10 MG/5ML ORAL SYRUP 009364 PROMETHAZINE-CODEINE Inactive CHERATUSSIN AC 100-10 MG/5ML ORAL SYRUP 1 tsp by mouth every 4 hours as needed for cough CHERATUSSIN AC 100-10 MG/5ML ORAL SYRUP 9 73935 GUAIFENESIN-CODEINE Inactive FLUTICASONE PROPIONATE 50 MCG/ACT NASAL SUSPENSION 1 t o 2 sprays each nostril daily FLUTICASONE PROPIONATE 50 MCG/AC T NASAL SUSPENSION 8840185 FLUTICASONE PROPIONATE Inactive PREDNISONE 20 MG ORAL TABLET 3 tab PO qd x 2d, 2 tab P O qd x 2d, 1 tab PO qd x 2d, 1/2 tab PO qd x 2d PREDNISONE 20 MG ORAL TAB LET 106474 PREDNISONE Inactive LEVOFLOXACIN 500 MG ORAL TABLET 1 tab PO daily x 10 days LEVOFLOXACIN 500 MG ORAL TABLET 524603 LEVOFLOXACIN Inactive CYCLOBENZAPRINE HCL 10 MG ORAL TABLET 1 tablet by mouth BID prn had pain CYCLOBENZAPRINE HCL 10 MG ORAL TABLET 779734 CYCLOBENZAPRINE HCL Inactive ZOCOR 40 MG ORAL TABLET 1 tab by mouth daily 4 ZOCOR 40 MG ORAL TABLET 523563 SIMVASTATIN Inactive TUSSIONEX PENNKINETIC ER 10-8 MG/5ML [...] FLUTICASONE PROPIO EFE 50 MCG/ACT NASAL SUSPENSION 6809754 FLUTICASONE PROPIONATE Inactive TUSSIONEX PENNKINETIC ER 10-8 [...] three days PREDNISONE 20 MG ORAL TABLET 107077 PREDNIS ONE Inactive PROAIR HFA 108 (90 BASE) MCG/ACT INHALATION AEROSOL SO LUTION 2 puffs four times a day as needed PROAIR HFA 108 (90 B ASE) MCG/ACT INHALATION AEROSOL SOLUTION ALBUTEROL SULFATE Inactive ZITHROMAX Z-REYNA 250 MG ORAL TABLET 2 today, then 1 daily for 4 d ays ZITHROMAX Z-REYNA 250 MG ORAL TABLET 237173 AZITHROMYCIN Inactive CEFDINIR 300 MG ORAL CAPSULE by mouth twice a day 2010 CEFDINIR 300 MG ORAL CAPSULE 161724 CEFDINIR Inactive CEFDINIR 300 MG ORAL CAPSULE by mouth twice a day 2010 CEFDINIR 300 MG ORAL CAPSULE 616067 CEFDINIR Inactive CEFDINIR 300 MG ORAL CAPSULE by mouth twice a day 2010 CEFDINIR 300 MG ORAL CAPSULE 189361 CEFDINIR Inactive CEFDINIR 300 MG ORAL CAPSULE by mouth twice a day 2011 CEFDINIR 300 MG ORAL CAPSULE 304916 CEFDINIR Inactive ZITHROMAX 250 MG ORAL TABLET 2 po today, then 1 po q days 2-5 20 03/07/07 ZITHROMAX 250 MG ORAL TABLET 126092 AZITHROMYCIN [place] ctive CEFDINIR 300 MG ORAL CAPSULE by mouth twice a day 2011 CEFDINIR 300 MG ORAL CAPSULE 046645 CEFDINIR Inactive PREDNISONE 20 MG ORAL TABLET 2 tabs daily for 3 days, 1 tab daily for 3 days, 1/2 tab daily for 2 days PREDNISONE 20 MG ORAL T ABLET 325274 PREDNISONE Inactive AVELOX 400 MG ORAL TABLET 1 tab by mouth daily AVELOX 400 MG ORAL TABLET 851222 MOXIFLOXACIN HCL Inactive AVELOX 400 MG ORAL TABLET 1 tab by mouth daily AVELOX 400 MG ORAL TABLET 586652 MOXIFLOXACIN HCL Inactive PREDNISONE 20 MG ORAL TABLET Take 3 tabs daily for 3 d ays, 2 tabs daily for 3 days, 1 tab daily for 3 days, 1/2 tab daily for 3 days 11/07 PREDNISONE 20 MG ORAL TABLET 223249 PREDNISONE Inactive LEVAQUIN 500 MG ORAL TABLET take one po QD LEVAQUIN 500 MG ORAL TABLET 019201 LEVOFLOXACIN Inactive AZITHROMYCIN 250 MG ORAL TABLET 2 po qd x 1 day, then 1 po q d x 4 days AZITHROMYCIN 250 MG ORAL TABLET 149502 AZITHROMY GIOVANNI Inactive MEDROL 4 MG ORAL TABLET THERAPY PACK 6 tabs on day 1, 5 tabs on day 2, 4 tabs on day 3, 3 tabs on day 4, 2 tabs on day 5, 1 tab on day 6 2013 MEDROL 4 MG ORAL TABLET THERAPY PACK 685191 METHYLPREDNISOLONE [place] ctive CHERATUSSIN AC 100-10 MG/5ML ORAL SYRUP 5ml po q6hr PRN Cough 20 13/04/14 CHERATUSSIN AC 100-10 MG/5ML ORAL SYRUP 838367 GUAIFENE SIN-CODEINE Inactive TRIAMCINOLONE ACETONIDE 0.1 % EXTERNAL CREAM apply three roger es daily prn rash TRIAMCINOLONE ACETONIDE 0.1 % EXTERNAL CREAM 101 4314 TRIAMCINOLONE ACETONIDE Inactive AZITHROMYCIN 250 MG ORAL TABLET 2 po qd x 1 day, then 1 po q d x 4 days AZITHROMYCIN 250 MG ORAL TABLET 873894 AZITHROMY GIOVANNI Inactive MEDROL 4 MG ORAL TABLET THERAPY PACK 6 pills x 1 day, then 5 pills x 1 day then 4 pills x 1 day, then 3 pills x 1 day, then 2 pills x 1 day, then 1 pill x 1 day, then stop MEDROL 4 MG ORAL TABLET THERAPY PACK 425030 METHYLPREDNISOLONE Inactive AMOXICILLIN 500 MG ORAL CAPSULE 1 tab by mouth 3 times daily x 10 days AMOXICILLIN 500 MG ORAL CAPSULE 975152 AMOXICILL IN Inactive AMOXICILLIN 500 MG ORAL CAPSULE 1 tab by mouth 3 times daily x 10 days AMOXICILLIN 500 MG ORAL CAPSULE 785433 AMOXICILL IN Inactive ZITHROMAX 250 MG ORAL TABLET 2 po today, then 1 po q days 2-5 20 12/08/14 ZITHROMAX 250 MG ORAL TABLET 407607 AZITHROMYCIN [place] ctive AUGMENTIN 875-125 MG ORAL TABLET 1 po BID x 10 days 20 13/01/20 AUGMENTIN 875-125 MG ORAL TABLET 715113 AMOXICILLIN-POT CLAVULANATE Inactive ZITHROMAX Z-REYNA 250 MG ORAL TABLET 2 today, then 1 daily for 4 d ays ZITHROMAX Z-REYNA 250 MG ORAL TABLET 975814 AZITHROMYCIN Inactive ZITHROMAX 250 MG ORAL TABLET 2 po today, then 1 po q days 2-5 20 14/03/21 ZITHROMAX 250 MG ORAL TABLET 655373 AZITHROMYCIN [place] ctive ZITHROMAX Z-REYNA 250 MG ORAL TABLET 2 today, then 1 daily for 4 d ays ZITHROMAX Z-REYNA 250 MG ORAL TABLET 997709 AZITHROMYCIN Inactive CEFDINIR 300 MG ORAL CAPSULE 1 po BID x 10 days 06/21 CEFDINIR 300 MG ORAL CAPSULE 829075 CEFDINIR Inactive ZITHROMAX 250 MG ORAL TABLET 2 po today, then 1 po q days 2-5 20 13/08/10 ZITHROMAX 250 MG ORAL TABLET 851388 AZITHROMYCIN [place] ctive LEVAQUIN 500 MG ORAL TABLET 1 tablet by mouth daily 20 13/09/24 LEVAQUIN 500 MG ORAL TABLET 765490 LEVOFLOXACIN Inactive SINGULAIR 10 MG ORAL TABLET 1 po qday for allergies 20 14/01/12 SINGULAIR 10 MG ORAL TABLET [id number] MONTELUKAST SODIUM Inactive AMOXICILLIN 500 MG ORAL CAPSULE 2 po BID x 10 days 201 09/29/08 AMOXICILLIN 500 MG ORAL CAPSULE 657729 AMOXICILLIN Inactive PREDNISONE 20 MG ORAL TABLET 2 tabs daily for 3 days, 1 tab daily for 3 days, 1/2 tab daily for 2 days PREDNISONE 20 MG ORAL T ABLET 457039 PREDNISONE Inactive ZITHROMAX Z-REYNA 250 MG ORAL TABLET 2 today, then 1 daily for 4 d ays ZITHROMAX Z-REYNA 250 MG ORAL TABLET 521398 AZITHROMYCIN Inactive PREDNISONE 20 MG ORAL TABLET 2 tabs daily for 3 days, 1 tab daily for 3 days, 1/2 tab daily for 2 days PREDNISONE 20 MG ORAL T ABLET 939536 PREDNISONE Inactive ZITHROMAX 250 MG ORAL TABLET 2 po today, then 1 po q days 2-5 20 14/09/04 ZITHROMAX 250 MG ORAL TABLET 280268 AZITHROMYCIN [facility] AMOXICILLIN 500 MG ORAL CAPSULE 1 cap by mouth three times a day AMOXICILLIN 500 MG ORAL CAPSULE 402550 AMOXICILLIN Inactive TERBINAFINE HCL 250 MG ORAL TABLET 1 qDay for nail fungus 7 TERBINAFINE HCL 250 MG ORAL TABLET 880315 TERBINAFINE HCL Inact nael AUGMENTIN 875-125 MG ORAL TABLET 1 po BID x 10 days 16/03/22 AUGMENTIN 875-125 MG ORAL TABLET 140877 AMOXICILLIN-POT CLAVULANATE Inactive PREDNISONE 20 MG ORAL TABLET 2 po qd x 5 days PREDNISONE 20 MG ORAL TABLET 326736 PREDNISONE Inactive AZITHROMYCIN 250 MG ORAL TABLET 2 po qd x 1 day, then 1 po q d x 4 days AZITHROMYCIN 250 MG ORAL TABLET 499192 AZITHROMY GIOVANNI Inactive Vital Signs Date Name [...] - Chem istry sodium, serum 139 mmol/L 460-111 4122/03/19 potassium, serum 3.6 mmol/L 3.5-5.2 chloride, serum 100 mmol/L 98-107 carbon dioxide, venous blood 30.3 mmol/L 21.0-32 .0 blood glucose 101 mg/dL 65-110 calcium, serum 9.4 mg/dL 8.5-10.1 urea nitrogen, blood 10 mg/dL 7-18 creatinine, serum 0.96 mg/dL 0.60-1.30 sodium, serum 139 mmol/L 538-314 7906/10/12 potassium, serum 3.8 mmol/L 3.5-5.2 chloride, serum 102 mmol/L 98-107 carbon dioxide, venous blood 29.4 mmol/L 21.0-32 .0 blood glucose 103 mg/dL 65-95 calcium, serum 8.8 mg/dL 8.5-10.1 urea nitrogen, blood 10 mg/dL 7-18 creatinine, serum 0.97 mg/dL 0.60-1.30 Estimated Glomerular Filtration Rate (calc) 62 (?) mL/min/1.73m2 = OR > 60 mL/min Encounters Code Encounter Date Provider Facility CPT-08950 [id number] Vst-Est Level III 11:12:16 CDT Br tami Bess DO [facility] CPT-40461 Level 3 Est. Patient 11:34:49 HEATER ROOM HELPER Perez Mora MD [facility] CPT-00322 Level 4 Est. Patient 09:51:32 HEATER ROOM HELPER Carlton rich MD [facility] CPT-63659 Level 3 Est. Patient 10:26:00 HEATER ROOM HELPER Elise stephenson APRN [facility] CPT-69099 Level 3 Est. Patient 13:35:41 HEATER ROOM HELPER Carlton rich MD [facility] CPT-13773 Level 3 Est. Patient 10:03:52 HEATER ROOM HELPER Carlton rich MD [facility] CPT-61449 Level 3 Est. Patient 12:17:50 CDT Hugo Restrepo MD [facility] CPT-87475 Level 3 Est. Patient 13:42:38 CDT Elise Are ll [facility] CPT-30107 Level 3 Est. Patient 13:23:51 CDT Diya cobian [facility] CPT-91143 Level 3 Est. Patient 14:22:19 HEATER ROOM HELPER Diya cobian [facility] CPT-73187 Level 3 Est. Patient 10:11:46 CDT Carlton rich MD [facility] CPT-66836 Level 3 Est. Patient 17:29:43 CDT Elise Are ll [facility] CPT-50173 Level 3 Est. Patient 11:58:06 CDT Elise Are ll [facility] CPT-61056 Level 4 Est. Patient 14:36:51 CDT Carlton rich MD [facility] CPT-09324 Level 3 Est. Patient 18:16:00 HEATER ROOM HELPER Blaine HERNANDEZ [facility] CPT-87676 Level 3 Est. Patient 09:45:49 HEATER ROOM HELPER Carlton rich MD [facility] CPT-39494 Level 3 Est. Patient 13:19:20 CDT Carlton rich MD [facility] CPT-31882 Level 3 Est. Patient 13:06:43 CDT Ridge tam DO [facility] CPT-91971 Level 3 Est. Patient 10:03:07 CDT Perez Mora MD [facility] CPT-90341 Level 3 Est. Patient 19:50:35 HEATER ROOM HELPER Carlton rich MD [facility]-57826 Level 4 Est. Patient 18:05:01 HEATER ROOM HELPER Carlton rich MD [facility]-19593 Level 3 Est. Patient 10:45:55 HEATER ROOM HELPER Hugo Restrepo MD [facility]-68467 Level 3 Est. Patient 14:12:49 CDT Griffin HERNANDEZ [facility]-43107 Level 3 Est. Patient 17:37:24 CDT Carlton rich MD [facility]-12185 Level 3 Est. Patient 16:51:54 CDT Carlton rich MD [facility]-92548 Level 3 Est. Patient 12:18:11 CDT Hugo Restrepo MD [facility]-35003 Level 3 Est. Patient 11:30:25 CDT Marcy crisostomo MD PhD [facility]-10388 Level 3 Est. Patient 12:00:47 HEATER ROOM HELPER Carlton rich MD [facility]-20148 Level 3 Est. Patient 16:31:06 HEATER ROOM HELPER Carlton rich MD [facility]-40096 Level 3 Est. Patient 16:23:24 HEATER ROOM HELPER Ridge tam DO [facility]-96513 Level 3 Est. Patient 12:34:12 CDT Carlton rich MD [facility] CPT-51671 Level 2 Est. Patient 15:43:33 CDT Robi armstrong MD [facility]-58048 Level 4 Est. Patient 14:04:44 CDT Carlton rich MD [facility]-30538 Level 3 Est. Patient 05:47:59 CDT Ridge tam [facility]-42649 Level 3 Est. Patient 13:12:53 HEATER ROOM HELPER Carlton rich MD [facility] CPT-07569 Level 3 Est. Patient 14:26:53 CDT Hugo Restrepo MD [facility] Procedures Code Procedure Name Date Entry Date Standard Desc ription CPT-000 Give Appropriate Flu Vaccine 14:14:31 CDT 2 CPT-J1040 Depo Medrol 80 mg (Methyl Prednisolone A cetate) 10:42:44 CDT CPT-J1100 Decadron 8mg (Dexamethasone) 10:42:44 CDT 2 CPT-J0696 Rocephin 1gm Inj Solr 14:32:13 CDT CPT-J1020 Depo Medrol 60 mg (Methyl Prednisolone A cetate) 14:32:13 CDT CPT-J1100 Decadron 6mg (Dexamethasone) 14:32:13 CDT 2 CPT-57602 Hip bilat min 2V w AP pelvis 13:16:20 CDT 2 CPT-93438 Pelvis only 13:07:33 CDT CPT-90154 Spec Collection and Handling Fee 11:25:12 C DT CPT-03512 Fluzone Quadrivalent Intramuscular Suspe nsion 0.5 ML 14:31:55 CDT CPT-04538 Abx/Therapy Injection 13:28:47 HEATER ROOM HELPER CPT-J2930 Solu Medrol 125 mg (Methyl Prednisolone Sodium Succinate) 12:00:47 HEATER ROOM HELPER CPT-90212 Venipuncture Draw Fee 11:33:31 CDT CPT-84969 EKG Trac and Interp 11:21:09 CDT CPT-59554 Chest 2V Frontal and Lat 11:21:09 CDT 12/15 CPT-05713 Venipuncture Draw Fee 08:02:34 CDT CPT-23213 Chest 2V Frontal and Lat 05:47:59 CDT 06/05
--- OUTSIDE RECORDS SUMMARY | 2019-10-08 09:31 | XMS REPORT | Clinical Summary ---
Author Author Caitlin, Juliana Martinez Organization [facility] Address Unknown Phone Unavailable Allergies, [...] MD Headache Dermatitis, atopic 691.8 Active Carlton beltrná MD Other atopic dermatitis and related conditions [...] po q d x 4 days AZITHROMYCIN 20915025500 No Longer Active Ridge Bess DO Active PREDNISONE 20 MG ORAL TABLET two tabs by mouth today, then one tab by mouth days two and three and four PREDNISONE 40488933276 Active Lyndsay Mora MD Active PREDNISONE 20 MG ORAL TABLET 2 po qd x 5 days P REDNISONE 75798696739 No Longer Active Perez Mora MD Active PROAIR HFA 108 (90 BASE) MCG/ACT INHALATION AEROSOL SO LUTION 2 puffs four times a day as needed ALBUTEROL SULFATE 67843058918 No Long er Active Becky FUENTES Active ASPIRIN 81 MG ORAL TABLET 1 po qd ASPIRIN 71012848109 Active Carlton Hu MD Active PREDNISONE 20 MG ORAL TABLET 1 tab twice daily for 3 d ay, then one daily for three days PREDNISONE 79575576272 No Longer Active Carlton Hu MD Active AUGMENTIN 875-125 MG ORAL TABLET 1 po BID x 10 days 20 16/03/22 AMOXICILLIN-POT CLAVULANATE 59609254884 No Longer Active Elise Garcia APRN Active TERBINAFINE HCL 250 MG ORAL TABLET 1 qDay for nail fungus 7 TERBINAFINE HCL 14488133004 No Longer Active Carlton Hu MD A ctive TUSSIONEX PENNKINETIC ER 10-8 MG/5ML ORAL SUSPENSION E XTENDED RELEASE 5ml po q12hr PRN Cough HYDROCOD POLST-CHLORPHEN POLST 92071856278 Active Perez Mora MD Active AMOXICILLIN 500 MG ORAL CAPSULE 1 cap by mouth three times a day AMOXICILLIN 90480593020 No Longer Active Carlton Hu MD Active ELMIRON 100 MG ORAL CAPSULE 2 tablets in the am and 1 tablet at hs PENTOSAN POLYSULFATE SODIUM 53062658048 No Longer Active Robert jade Hu MD Active MUCINEX D 60-600 MG ORAL TABLET EXTENDED RELEASE 12 HOUR 1 t ab po q am PSEUDOEPHEDRINE-GUAIFENESIN 86151626524 No Longer Act nael Carlton Hu MD Active MUCINEX DM MAXIMUM STRENGTH 60-1200 MG ORAL TABLET EXT ENDED RELEASE 12 HOUR 1 tab po q am DEXTROMETHORPHAN-GUAIFENESIN 68336348625 No Longer Active Carlton Hu MD Active TUSSIONEX PENNKINETIC ER 10-8 MG/5ML ORAL SUSPENSION E XTENDED RELEASE 5ml po q12hr PRN Cough HYDROCOD POLST-CHLORPHEN POLST 5 2313260864 No Longer Active Carlton Hu MD Active POTASSIUM CHLORIDE ER 20 MEQ ORAL TABLET EXTENDED RELE ASE Take 1 by mouth 4 times daily for 7 days POTASSIUM CHLORIDE 67052379333 No Longer Active Carlton Hu MD Active ZITHROMAX 250 MG ORAL TABLET 2 po today, then 1 po q days 2-5 14/09/04 AZITHROMYCIN 35396078539 No Longer Active Elise Garcia APRN Active TUSSIONEX PENNKINETIC ER 10-8 MG/5ML ORAL SUSPENSION E XTENDED RELEASE 5 ml twice a day as needed for cough HYDROCOD POLST-CHLORPH EN POLST 56322294438 No Longer Active Elise Garcia APRN Active MONTELUKAST SODIUM 10 MG ORAL TABLET 1 po daily for Allergy MONTELUKAST SODIUM 58059285701 Active Carlton Hu MD Ac tive TUSSIONEX PENNKINETIC ER 10-8 MG/5ML ORAL SUSPENSION E XTENDED RELEASE 5ml po q12hr PRN Cough HYDROCOD POLST-CHLORPHEN POLST 5 0159364553 No Longer Active Hugo Restrepo MD Active GABAPENTIN 100 MG ORAL CAPSULE 1 po BID for fibromyalgia GABAPENTIN 45709942775 Active Carlton Hu MD Active LYRICA 100 MG ORAL CAPSULE Take 1 tab po BID for fibromyalgia 20 11/08/21 PREGABALIN 50476767812 No Longer Active Elise Garcia [employer] CLE[employer]ER HELPER A ctive PREDNISONE 20 MG ORAL TABLET 2 tabs daily for 3 days, 1 tab daily for 3 days, 1/2 tab daily for 2 days PREDNISONE 98927697492 No Longer Active Jillina Frazell [employer] CLE[employer]ER HELPER Active TUSSIONEX PENNKINETIC ER 10-8 MG/5ML ORAL SUSPENSION E XTENDED RELEASE 5 mL PO q 12 hrs PRN cough HYDROCOD POLST-CHLORPHEN POLST 251034 48880 No Longer Active Jillina Frazell [employer] CLE[employer] HELPER Active FLUTICASONE PROPIONATE 50 MCG/ACT NASAL SUSPENSION 2 s prays each nostril daily until bottle is empty FLUTICASONE PROPIONATE 754031849 99 No Longer Active Jillina Frazell [employer] CLE[employer]ER HELPER Active ASMANEX 60 METERED DOSES 220 MCG/INH INHALATION AEROSO L POWDER BREATH ACTIVATED 1 puff bid with rinse after MOMETASONE FUROATE 5492545 4102 No Longer Active Jillina Frazell [employer] CLE[employer]ER HELPER Active ZITHROMAX Z-REYNA 250 MG ORAL TABLET 2 today, then 1 daily for 4 d ays AZITHROMYCIN 24642651619 No Longer Active Elise Garcia [employer] CLE[employer]ER HELPER Active TUSSIONEX PENNKINETIC ER 10-8 MG/5ML ORAL SUSPENSION E XTENDED RELEASE 5ml po q12hr PRN Cough HYDROCOD POLST-CHLORPHEN POLST 5 6598476932 No Longer Active Elise Garcia [employer] CLE[employer]ER HELPER Active PREDNISONE 20 MG ORAL TABLET 2 tabs daily for 3 days, 1 tab daily for 3 days, 1/2 tab daily for 2 days PREDNISONE 88691295712 No Longer Active Jillina Frazell [employer] CLE[employer]ER HELPER Active AMOXICILLIN 500 MG ORAL CAPSULE 2 po BID x 10 days 201 09/29/08 AMOXICILLIN 22524112908 No Longer Active Jillina Frazell [employer] CLE[employer]ER HELPER Act nael SINGULAIR 10 MG ORAL TABLET 1 po qday for allergies 20 14/01/12 MONTELUKAST SODIUM 81803629948 No Longer Active Carlton Hu MD Active LEVAQUIN 500 MG ORAL TABLET 1 tablet by mouth daily 20 13/09/24 LEVOFLOXACIN 82988427074 No Longer Active Carlton Hu MD Acti ve FLUTICASONE PROPIONATE 50 MCG/ACT NASAL SUSPENSION 2 s prays each nostril daily for 2 weeks, then 1 spray each nostril daily. FLUTICASONE PROPIONATE 20495003637 Active Elise Areseema [employer] CLE[employer]ER HELPER Active ZITHROMAX 250 MG ORAL TABLET 2 po today, then 1 po q days 2-5 20 13/08/10 AZITHROMYCIN 77425703656 No Longer Active Elise Garcia APRN Active XANAX 0.5 MG ORAL TABLET one tablet by mouth daily prn anxiety 2015 ALPRAZOLAM 19450122728 Active ALFREDO Holly Active CYMBALTA 30 MG ORAL CAPSULE DELAYED RELEASE PARTICLES 1 cap by mouth daily for depression DULOXETINE HCL 33835137313 Active Carlton beltrán MD Active CEFDINIR 300 MG ORAL CAPSULE 1 po BID x 10 days CEFDINIR 04187306543 No Longer Active Carlton Hu MD Active ZOCOR 40 MG ORAL TABLET 1 tab by mouth daily SI MVASTATIN 75018291107 No Longer Active Carlton Hu MD Active CYCLOBENZAPRINE HCL 10 MG ORAL TABLET 1 tablet by mouth BID prn had pain CYCLOBENZAPRINE HCL 82900888994 No Longer Active Jayden Hu MD Active LEVOFLOXACIN 500 MG ORAL TABLET 1 tab PO daily x 10 days LEVOFLOXACIN 30772891294 No Longer Active Carlton Hu MD Acti ve PREDNISONE 20 MG ORAL TABLET 3 tab PO qd x 2d, 2 tab P O qd x 2d, 1 tab PO qd x 2d, 1/2 tab PO qd x 2d PREDNISONE 08585324626 No Lo nger Active Carlton Hu MD Active FLUTICASONE PROPIONATE 50 MCG/ACT NASAL SUSPENSION 1 t o 2 sprays each nostril daily FLUTICASONE PROPIONATE 76361221184 No Longer Ac tive Blaine HERNANDEZ Active CHERATUSSIN AC 100-10 MG/5ML ORAL SYRUP 1 tsp by mouth every 4 hours as needed for cough GUAIFENESIN-CODEINE 84315760631 No Longe r Active Blaine HERNANDEZ Active PROMETHAZINE-CODEINE 6.25-10 MG/5ML ORAL SYRUP 1 tsp b y mouth every 6 hours if needed for cough PROMETHAZINE-CODEINE 14271194271 No Longer Active Blaine HERNANDEZ Active CHERATUSSIN AC 100-10 MG/5ML ORAL SYRUP 1 tsp by mouth every 4 hours as needed for cough GUAIFENESIN-CODEINE 45012044888 No Longe r Active Blaine HERNANDEZ Active ZITHROMAX Z-REYNA 250 MG ORAL TABLET 2 today, then 1 daily for 4 d ays AZITHROMYCIN 56866054445 No Longer Active Columba Raida Act nael ZITHROMAX 250 MG ORAL TABLET 2 po today, then 1 po q days 2-5 20 14/03/21 AZITHROMYCIN 33951823558 No Longer Active Carlton Hu MD Active ZITHROMAX Z-REYNA 250 MG ORAL TABLET 2 today, then 1 daily for 4 d ays AZITHROMYCIN 19610535086 No Longer Active Columba Raida Act nael AUGMENTIN 875-125 MG ORAL TABLET 1 po BID x 10 days 13/01/20 AMOXICILLIN-POT CLAVULANATE 23131850178 No Longer Active Diya De Guzman APRN Active ZITHROMAX 250 MG ORAL TABLET 2 po today, then 1 po q days 2-5 20 12/08/14 AZITHROMYCIN 84280125413 No Longer Active Carlton Hu MD Active TRAMADOL HCL 50 MG ORAL TABLET 1 po tid with ES Tylenol TRAMADOL HCL 20150083495 Active ALFREDO Holly Active PREMARIN 0.625 MG ORAL TABLET TAKE 1 TAB BY MOUTH DAILY ESTROGENS CONJUGATED 64648171281 No Longer Active Ridge Bess DO A ctive CYMBALTA 30 MG ORAL CAPSULE DELAYED RELEASE PARTICLES 1 cap by mouth daily DULOXETINE HCL 84531423684 No Longer Active Ridge tam DO Active AMOXICILLIN 500 MG ORAL CAPSULE 1 tab by mouth 3 times daily x 10 days AMOXICILLIN 14603713338 No Longer Active Carlton bustamante MD Active AMOXICILLIN 500 MG ORAL CAPSULE 1 tab by mouth 3 times daily x 10 days AMOXICILLIN 14665234918 No Longer Active Carlton bustamante MD Active PROMETHAZINE-CODEINE 6.25-10 MG/5ML ORAL SYRUP 1 tsp b y mouth every 8 hours prn cough PROMETHAZINE-CODEINE 82947589961 No Longer Acti ve Carlton Hu MD Active MEDROL 4 MG ORAL TABLET THERAPY PACK 6 pills x 1 day, then 5 pills x 1 day then 4 pills x 1 day, then 3 pills x 1 day, then 2 pills x 1 day, then 1 pill x 1 day, then stop METHYLPREDNISOLONE 51357680045 No Long er Active Perez Mora MD Active AZITHROMYCIN 250 MG ORAL TABLET 2 po qd x 1 day, then 1 po q d x 4 days AZITHROMYCIN 87780504520 No Longer Active Perez Ambriz MD Active SYMBICORT 160-4.5 MCG/ACT INHALATION AEROSOL 2 puffs bid wit h rinse after BUDESONIDE-FORMOTEROL FUMARATE 60487902516 N o Longer Active Perez Mora MD Active LYRICA 75 MG ORAL CAPSULE TAKE 1 CAPSULE BY MOUTH TWICE DAILY PREGABALIN 66048507479 No Longer Active Carlton Hu MD Acti ve TOPAMAX 25 MG ORAL TABLET 1 qHS x 1 week, then 1 BID x 1 week, then 1 qAM and 2 qHS x 1 week, then 2 BID (migraine prevention) T OPIRAMATE 43566861168 No Longer Active Jerica FUENTES Active TOPAMAX 50 MG ORAL TABLET take 1 tab po BID for migraines. 07/02 TOPIRAMATE 32462399638 No Longer Active Jerica FUENTES Active TOPAMAX 100 MG ORAL TABLET Take 1 tablet po bid TO PIRAMATE 97429749088 Active Carlton Hu MD Active TRIAMCINOLONE ACETONIDE 0.1 % EXTERNAL CREAM apply three roger es daily prn rash TRIAMCINOLONE ACETONIDE 51355100580 No Longer Active Carlton Hu MD Active PAXIL 40 MG ORAL TABLET take 1 tab po qday for depression 0 PAROXETINE HCL 11975183749 Active ALFREDO Holly Active CHERATUSSIN AC 100-10 MG/5ML ORAL SYRUP 5ml po q6hr PRN Cough 20 13/04/14 GUAIFENESIN-CODEINE 04233633612 No Longer Active Carlton Hu MD Active MEDROL 4 MG ORAL TABLET THERAPY PACK 6 tabs on day 1, 5 tabs on day 2, 4 tabs on day 3, 3 tabs on day 4, 2 tabs on day 5, 1 tab on day 6 2013 METHYLPREDNISOLONE 88173472280 No Longer Active Perez Mora MD Active AZITHROMYCIN 250 MG ORAL TABLET 2 po qd x 1 day, then 1 po q d x 4 days AZITHROMYCIN 40227045376 No Longer Active Perez Ambriz MD Active PROPRANOLOL HCL 60 MG ORAL TABLET 1 PO Q D PROPRANOLOL HCL 78600402227 No Longer Active Perez Mora MD Activ e CHERATUSSIN AC 100-10 MG/5ML ORAL SYRUP take one tsp po Q 6h ours prn cough GUAIFENESIN-CODEINE 85587261613 No Longer Active Zia Mora MD Active AUGMENTIN 875-125 MG ORAL TABLET 1 tab by mouth twice daily with food AMOXICILLIN-POT CLAVULANATE 04682163630 No Longer Act nael Mora MD Active CHERATUSSIN AC 100-10 MG/5ML ORAL SYRUP 1 tsp by mouth every 4 hours as needed for cough GUAIFENESIN-CODEINE 28513126443 No Longe r Active Hugo Restrepo MD Active ACETAMINOPHEN-CODEINE #3 300-30 MG ORAL TABLET 1 PO Q 4-6 HRS DC N PAIN ACETAMINOPHEN-CODEINE 83364668082 No Longer Active Hugo Restrepo MD Active LEVAQUIN 500 MG ORAL TABLET take one po QD LEVO FLOXACIN 97362921098 No Longer Active Griffin HERNANDEZ Active PREDNISONE 20 MG ORAL TABLET Take 3 tabs daily for 3 d ays, 2 tabs daily for 3 days, 1 tab daily for 3 days, 1/2 tab daily for 3 days 11/07 PREDNISONE 70508028807 No Longer Active Carlton Hu MD Acti ve AVELOX 400 MG ORAL TABLET 1 tab by mouth daily MOXIFLOXACIN HCL 26363784865 No Longer Active Carlton Hu MD Active CHERATUSSIN AC 100-10 MG/5ML ORAL SYRUP 1 tsp by mouth every 4 hours as needed for cough GUAIFENESIN-CODEINE 27986626642 No Longe r Active Hugo Restrepo MD Active AVELOX 400 MG ORAL TABLET 1 tab by mouth daily MOXIFLOXACIN HCL 85053856507 No Longer Active Marcy De La Rosa MD PhD Active TERBINAFINE HCL 250 MG ORAL TABLET 1 qDay T ERBINAFINE HCL 33506145993 No Longer Active Marcy De La Rosa MD PhD Active CHERATUSSIN AC 100-10 MG/5ML ORAL SYRUP 1 tsp by mouth every 4 hours as needed for cough GUAIFENESIN-CODEINE 98709301969 No Longe r Active Marcy De La Rosa MD PhD Active AVELOX 400 MG ORAL TABLET 1 tab by mouth daily MOXIFLOXACIN HCL 23817108136 No Longer Active Marcy De La Rosa MD PhD Active HYDROCODONE-ACETAMINOPHEN 5-325 MG ORAL TABLET 1 po q 6hr PRN co ugh HYDROCODONE-ACETAMINOPHEN 14140646546 No Longer Active Marcy De La Rosa MD PhD Active PREDNISONE 20 MG ORAL TABLET 2 tabs daily for 3 days, 1 tab daily for 3 days, 1/2 tab daily for 2 days PREDNISONE 38301065203 No Longer Active Carlton Hu MD Active CEFDINIR 300 MG ORAL CAPSULE by mouth twice a day 2011 CEFDINIR 27438528100 No Longer Active Carlton Hu MD Acti ve HYDROCHLOROTHIAZIDE 25 MG ORAL TABLET 1 TAB PO DAILY HYDROCHLOROTHIAZIDE 62569633596 Active ALFREDO Holly Ac tive ACETAMINOPHEN-CODEINE #3 300-30 MG ORAL TABLET 1 tablet po q 4-6 hrs prn pain ACETAMINOPHEN-CODEINE 64269816939 No Longer Active Ridge Bess DO Active ZITHROMAX 250 MG ORAL TABLET 2 po today, then 1 po q days 2-5 20 03/07/07 AZITHROMYCIN 93630476887 No Longer Active Carlton Hu MD Active CHERATUSSIN AC 100-10 MG/5ML ORAL SYRUP take 1 tsp po q4-6 h ours prn cough GUAIFENESIN-CODEINE 67216528012 No Longer Active Jayden Hu MD Active ACETAMINOPHEN-CODEINE #3 300-30 MG ORAL TABLET 1 PO Q 4-6 HR PRN PAIN ACETAMINOPHEN-CODEINE 86769387151 No Longer Active Da vilesley Hu MD Active LORTAB 7.5-500 MG/15ML ORAL ELIXIR 7.5 ml po q 4 hour prn cough HYDROCODONE-ACETAMINOPHEN 19040951543 No Longer Active Carlton Hu MD Active PREDNISONE 20 MG ORAL TABLET 1 po bid 3 days, then 1 po q day 3 days PREDNISONE 48796720910 No Longer Active Carlton Hu MD Active CEFDINIR 300 MG ORAL CAPSULE by mouth twice a day 2011 CEFDINIR 94787012185 No Longer Active Carlton Hu MD Acti ve CEFDINIR 300 MG ORAL CAPSULE by mouth twice a day 2010 CEFDINIR 27785431556 No Longer Active Carlton Hu MD Acti ve CEFDINIR 300 MG ORAL CAPSULE by mouth twice a day 2010 CEFDINIR 02936904609 No Longer Active Carlton Hu MD Acti ve TESSALON PERLES 100 MG ORAL CAPSULE 1 tablet by mouth 3 times daily as needed for cough BENZONATATE 30451591611 No Longer Active Carlton Hu MD Active CEFDINIR 300 MG ORAL CAPSULE by mouth twice a day 2010 CEFDINIR 15347694611 No Longer Active Carlton Hu MD Acti ve ZITHROMAX Z-REYNA 250 MG ORAL TABLET 2 today, then 1 daily for 4 d ays AZITHROMYCIN 00264891796 No Longer Active Hugo Restrepo MD Active TESSALON PERLES 100 MG ORAL CAPSULE 1 tablet by mouth 3 times daily as needed for cough TESSALON PERLES 100 MG ORAL CAPSULE 32968 7 BENZONATATE Inactive PREDNISONE 20 MG ORAL TABLET 1 po bid 3 days, then 1 po q day 3 days PREDNISONE 20 MG ORAL TABLET 550743 PREDNISONE Greer ctive LORTAB 7.5-500 MG/15ML ORAL [...] cough CHERATUSSIN AC 100-10 MG/5ML ORAL SYRUP 721516 GUAIFENESIN-CODEINE Inactive ACETAMINOPHEN-CODEINE #3 300-30 MG ORAL TABLET 1 tablet po q 4-6 hrs prn pain ACETAMINOPHEN-CODEINE #3 300-30 MG ORAL TABLET ACETAMINOPHEN-CODEINE Inactive HYDROCODONE-ACETAMINOPHEN 5-325 MG ORAL TABLET 1 po q 6hr PRN co ugh HYDROCODONE-ACETAMINOPHEN 5-325 MG ORAL TABLET 553689 HYDROCODONE-ACETAMINOPHEN Inactive AVELOX 400 MG ORAL TABLET 1 tab by mouth daily AVELOX 400 MG ORAL TABLET 188717 MOXIFLOXACIN HCL Inactive CHERATUSSIN AC 100-10 MG/5ML ORAL SYRUP 1 tsp by mouth every 4 hours as needed for cough CHERATUSSIN AC 100-10 MG/5ML ORAL SYRUP 9 82340 GUAIFENESIN-CODEINE Inactive TERBINAFINE HCL 250 MG ORAL TABLET 1 qDay 07/08 TERBINAFINE HCL 250 MG ORAL TABLET 666745 TERBINAFINE HCL Inactive CHERATUSSIN AC 100-10 MG/5ML ORAL SYRUP 1 tsp by mouth every 4 hours as needed for cough CHERATUSSIN AC 100-10 MG/5ML ORAL SYRUP 9 70813 GUAIFENESIN-CODEINE Inactive ACETAMINOPHEN-CODEINE #3 300-30 MG ORAL TABLET 1 PO Q 4-6 HRS DC N PAIN ACETAMINOPHEN-CODEINE #3 300-30 MG ORAL TABLET ACETAMINOPHEN-CODEINE Inactive CHERATUSSIN AC 100-10 MG/5ML ORAL SYRUP 1 tsp by mouth every 4 hours as needed for cough CHERATUSSIN AC 100-10 MG/5ML ORAL SYRUP 9 88507 GUAIFENESIN-CODEINE Inactive AUGMENTIN 875-125 MG ORAL TABLET 1 tab by mouth twice daily with food AUGMENTIN 875-125 MG ORAL TABLET 150851 AMOXICIL MADELINE-POT CLAVULANATE Inactive CHERATUSSIN AC 100-10 MG/5ML ORAL SYRUP take one tsp po Q 6h ours prn cough CHERATUSSIN AC 100-10 MG/5ML ORAL SYRUP 337721 GUAIFENESIN-CODEINE Inactive PROPRANOLOL HCL 60 MG ORAL TABLET 1 PO Q D PROPRANOLOL HCL 60 MG ORAL TABLET 003019 PROPRANOLOL HCL Inactive TOPAMAX 50 MG ORAL TABLET take 1 tab po BID for migraines. 07/02 TOPAMAX 50 MG ORAL TABLET 538606 TOPIRAMATE Inacti ve TOPAMAX 25 MG ORAL TABLET 1 qHS x 1 week, then 1 BID x 1 week, then 1 qAM and 2 qHS x 1 week, then 2 BID (migraine prevention) TOPAMAX 25 MG ORAL TABLET 436539 TOPIRAMATE Inactive LYRICA 75 MG ORAL CAPSULE TAKE 1 CAPSULE BY MOUTH TWICE DAILY LYRICA 75 MG ORAL CAPSULE PREGABALIN Inactive SYMBICORT 160-4.5 MCG/ACT INHALATION AEROSOL 2 puffs bid wit h rinse after SYMBICORT 160-4.5 MCG/ACT INHALATION AEROSOL BUDESONIDE- FORMOTEROL FUMARATE Inactive PROMETHAZINE-CODEINE 6.25-10 MG/5ML ORAL SYRUP 1 tsp b y mouth every 8 hours prn cough PROMETHAZINE-CODEINE 6.25-10 MG/ 5ML ORAL SYRUP 381623 PROMETHAZINE-CODEINE Inactive CYMBALTA 30 MG ORAL CAPSULE DELAYED RELEASE PARTICLES 1 cap by mouth daily CYMBALTA 30 MG ORAL CAPSULE DELAYED RELE ASE PARTICLES 767088 DULOXETINE HCL Inactive PREMARIN 0.625 MG ORAL TABLET TAKE 1 TAB BY MOUTH DAILY PREMARIN 0.625 MG ORAL TABLET ESTROGENS CONJUGATED Inactive CHERATUSSIN AC 100-10 MG/5ML ORAL SYRUP 1 tsp by mouth every 4 hours as needed for cough CHERATUSSIN AC 100-10 MG/5ML ORAL SYRUP 9 63154 GUAIFENESIN-CODEINE Inactive PROMETHAZINE-CODEINE 6.25-10 MG/5ML ORAL SYRUP 1 tsp b y mouth every 6 hours if needed for cough PROMETHAZINE-CODEINE 6.25-10 MG/5ML ORAL SYRUP 149639 PROMETHAZINE-CODEINE Inactive CHERATUSSIN AC 100-10 MG/5ML ORAL SYRUP 1 tsp by mouth every 4 hours as needed for cough CHERATUSSIN AC 100-10 MG/5ML ORAL SYRUP 9 99574 GUAIFENESIN-CODEINE Inactive FLUTICASONE PROPIONATE 50 MCG/ACT NASAL SUSPENSION 1 t o 2 sprays each nostril daily FLUTICASONE PROPIONATE 50 MCG/AC T NASAL SUSPENSION 6041790 FLUTICASONE PROPIONATE Inactive PREDNISONE 20 MG ORAL TABLET 3 tab PO qd x 2d, 2 tab P O qd x 2d, 1 tab PO qd x 2d, 1/2 tab PO qd x 2d PREDNISONE 20 MG ORAL TAB LET 364002 PREDNISONE Inactive LEVOFLOXACIN 500 MG ORAL TABLET 1 tab PO daily x 10 days LEVOFLOXACIN 500 MG ORAL TABLET 254280 LEVOFLOXACIN Inactive CYCLOBENZAPRINE HCL 10 MG ORAL TABLET 1 tablet by mouth BID prn had pain CYCLOBENZAPRINE HCL 10 MG ORAL TABLET 078236 CYCLOBENZAPRINE HCL Inactive ZOCOR 40 MG ORAL TABLET 1 tab by mouth daily 4 ZOCOR 40 MG ORAL TABLET 620533 SIMVASTATIN Inactive TUSSIONEX PENNKINETIC ER 10-8 MG/5ML [...] FLUTICASONE PROPIO EFE 50 MCG/ACT NASAL SUSPENSION 6985487 FLUTICASONE PROPIONATE Inactive TUSSIONEX PENNKINETIC ER 10-8 [...] three days PREDNISONE 20 MG ORAL TABLET 540430 PREDNIS ONE Inactive PROAIR HFA 108 (90 BASE) MCG/ACT INHALATION AEROSOL SO LUTION 2 puffs four times a day as needed PROAIR HFA 108 (90 B ASE) MCG/ACT INHALATION AEROSOL SOLUTION ALBUTEROL SULFATE Inactive ZITHROMAX Z-REYNA 250 MG ORAL TABLET 2 today, then 1 daily for 4 d ays ZITHROMAX Z-REYNA 250 MG ORAL TABLET 288871 AZITHROMYCIN Inactive CEFDINIR 300 MG ORAL CAPSULE by mouth twice a day 2010 CEFDINIR 300 MG ORAL CAPSULE 717000 CEFDINIR Inactive CEFDINIR 300 MG ORAL CAPSULE by mouth twice a day 2010 CEFDINIR 300 MG ORAL CAPSULE 165955 CEFDINIR Inactive CEFDINIR 300 MG ORAL CAPSULE by mouth twice a day 2010 CEFDINIR 300 MG ORAL CAPSULE 030378 CEFDINIR Inactive CEFDINIR 300 MG ORAL CAPSULE by mouth twice a day 2011 CEFDINIR 300 MG ORAL CAPSULE 976534 CEFDINIR Inactive ZITHROMAX 250 MG ORAL TABLET 2 po today, then 1 po q days 2-5 20 03/07/07 ZITHROMAX 250 MG ORAL TABLET 053786 AZITHROMYCIN [place] ctive CEFDINIR 300 MG ORAL CAPSULE by mouth twice a day 2011 CEFDINIR 300 MG ORAL CAPSULE 617068 CEFDINIR Inactive PREDNISONE 20 MG ORAL TABLET 2 tabs daily for 3 days, 1 tab daily for 3 days, 1/2 tab daily for 2 days PREDNISONE 20 MG ORAL T ABLET 295170 PREDNISONE Inactive AVELOX 400 MG ORAL TABLET 1 tab by mouth daily AVELOX 400 MG ORAL TABLET 399050 MOXIFLOXACIN HCL Inactive AVELOX 400 MG ORAL TABLET 1 tab by mouth daily AVELOX 400 MG ORAL TABLET 963197 MOXIFLOXACIN HCL Inactive PREDNISONE 20 MG ORAL TABLET Take 3 tabs daily for 3 d ays, 2 tabs daily for 3 days, 1 tab daily for 3 days, 1/2 tab daily for 3 days 11/07 PREDNISONE 20 MG ORAL TABLET 499705 PREDNISONE Inactive LEVAQUIN 500 MG ORAL TABLET take one po QD LEVAQUIN 500 MG ORAL TABLET 607035 LEVOFLOXACIN Inactive AZITHROMYCIN 250 MG ORAL TABLET 2 po qd x 1 day, then 1 po q d x 4 days AZITHROMYCIN 250 MG ORAL TABLET 322359 AZITHROMY GIOVANNI Inactive MEDROL 4 MG ORAL TABLET THERAPY PACK 6 tabs on day 1, 5 tabs on day 2, 4 tabs on day 3, 3 tabs on day 4, 2 tabs on day 5, 1 tab on day 6 2013 MEDROL 4 MG ORAL TABLET THERAPY PACK 774720 METHYLPREDNISOLONE [place] ctive CHERATUSSIN AC 100-10 MG/5ML ORAL SYRUP 5ml po q6hr PRN Cough 20 13/04/14 CHERATUSSIN AC 100-10 MG/5ML ORAL SYRUP 568018 GUAIFENE SIN-CODEINE Inactive TRIAMCINOLONE ACETONIDE 0.1 % EXTERNAL CREAM apply three roger es daily prn rash TRIAMCINOLONE ACETONIDE 0.1 % EXTERNAL CREAM 101 4314 TRIAMCINOLONE ACETONIDE Inactive AZITHROMYCIN 250 MG ORAL TABLET 2 po qd x 1 day, then 1 po q d x 4 days AZITHROMYCIN 250 MG ORAL TABLET 494038 AZITHROMY GIOVANNI Inactive MEDROL 4 MG ORAL TABLET THERAPY PACK 6 pills x 1 day, then 5 pills x 1 day then 4 pills x 1 day, then 3 pills x 1 day, then 2 pills x 1 day, then 1 pill x 1 day, then stop MEDROL 4 MG ORAL TABLET THERAPY PACK 536042 METHYLPREDNISOLONE Inactive AMOXICILLIN 500 MG ORAL CAPSULE 1 tab by mouth 3 times daily x 10 days AMOXICILLIN 500 MG ORAL CAPSULE 795992 AMOXICILL IN Inactive AMOXICILLIN 500 MG ORAL CAPSULE 1 tab by mouth 3 times daily x 10 days AMOXICILLIN 500 MG ORAL CAPSULE 118240 AMOXICILL IN Inactive ZITHROMAX 250 MG ORAL TABLET 2 po today, then 1 po q days 2-5 20 12/08/14 ZITHROMAX 250 MG ORAL TABLET 069045 AZITHROMYCIN [place] ctive AUGMENTIN 875-125 MG ORAL TABLET 1 po BID x 10 days 20 13/01/20 AUGMENTIN 875-125 MG ORAL TABLET 899219 AMOXICILLIN-POT CLAVULANATE Inactive ZITHROMAX Z-REYNA 250 MG ORAL TABLET 2 today, then 1 daily for 4 d ays ZITHROMAX Z-REYNA 250 MG ORAL TABLET 663686 AZITHROMYCIN Inactive ZITHROMAX 250 MG ORAL TABLET 2 po today, then 1 po q days 2-5 20 14/03/21 ZITHROMAX 250 MG ORAL TABLET 227990 AZITHROMYCIN [place] ctive ZITHROMAX Z-REYNA 250 MG ORAL TABLET 2 today, then 1 daily for 4 d ays ZITHROMAX Z-REYNA 250 MG ORAL TABLET 160046 AZITHROMYCIN Inactive CEFDINIR 300 MG ORAL CAPSULE 1 po BID x 10 days 06/21 CEFDINIR 300 MG ORAL CAPSULE 508993 CEFDINIR Inactive ZITHROMAX 250 MG ORAL TABLET 2 po today, then 1 po q days 2-5 20 13/08/10 ZITHROMAX 250 MG ORAL TABLET 297242 AZITHROMYCIN [place] ctive LEVAQUIN 500 MG ORAL TABLET 1 tablet by mouth daily 20 13/09/24 LEVAQUIN 500 MG ORAL TABLET 972031 LEVOFLOXACIN Inactive SINGULAIR 10 MG ORAL TABLET 1 po qday for allergies 20 14/01/12 SINGULAIR 10 MG ORAL TABLET 20010504 MONTELUKAST SODIUM Inactive AMOXICILLIN 500 MG ORAL CAPSULE 2 po BID x 10 days 201 09/29/08 AMOXICILLIN 500 MG ORAL CAPSULE 608493 AMOXICILLIN Inactive PREDNISONE 20 MG ORAL TABLET 2 tabs daily for 3 days, 1 tab daily for 3 days, 1/2 tab daily for 2 days PREDNISONE 20 MG ORAL T ABLET 072346 PREDNISONE Inactive ZITHROMAX Z-REYNA 250 MG ORAL TABLET 2 today, then 1 daily for 4 d ays ZITHROMAX Z-REYNA 250 MG ORAL TABLET 662549 AZITHROMYCIN Inactive PREDNISONE 20 MG ORAL TABLET 2 tabs daily for 3 days, 1 tab daily for 3 days, 1/2 tab daily for 2 days PREDNISONE 20 MG ORAL T ABLET 033055 PREDNISONE Inactive ZITHROMAX 250 MG ORAL TABLET 2 po today, then 1 po q days 2-5 20 14/09/04 ZITHROMAX 250 MG ORAL TABLET 370612 AZITHROMYCIN [facility] [place] [facility] AMOXICILLIN 500 MG ORAL CAPSULE 1 cap by mouth three times a day AMOXICILLIN 500 MG ORAL CAPSULE 505220 AMOXICILLIN Inactive TERBINAFINE HCL 250 MG ORAL TABLET 1 qDay for nail fungus 7 TERBINAFINE HCL 250 MG ORAL TABLET 381651 TERBINAFINE HCL Inact nael AUGMENTIN 875-125 MG ORAL TABLET 1 po BID x 10 days 16/03/22 AUGMENTIN 875-125 MG ORAL TABLET 335655 AMOXICILLIN-POT CLAVULANATE Inactive PREDNISONE 20 MG ORAL TABLET 2 po qd x 5 days PREDNISONE 20 MG ORAL TABLET 255135 PREDNISONE Inactive AZITHROMYCIN 250 MG ORAL TABLET 2 po qd x 1 day, then 1 po q d x 4 days AZITHROMYCIN 250 MG ORAL TABLET 206325 AZITHROMY GIOVANNI Inactive Vital Signs Date Name [...] - Chem istry sodium, serum 139 mmol/L 188-661 8946/03/19 potassium, serum 3.6 mmol/L 3.5-5.2 chloride, serum 100 mmol/L 98-107 carbon dioxide, venous blood 30.3 mmol/L 21.0-32 .0 blood glucose 101 mg/dL 65-110 calcium, serum 9.4 mg/dL 8.5-10.1 urea nitrogen, blood 10 mg/dL 7-18 creatinine, serum 0.96 mg/dL 0.60-1.30 sodium, serum 139 mmol/L 804-088 0731/10/12 potassium, serum 3.8 mmol/L 3.5-5.2 chloride, serum 102 mmol/L 98-107 carbon dioxide, venous blood 29.4 mmol/L 21.0-32 .0 blood glucose 103 mg/dL 65-95 calcium, serum 8.8 mg/dL 8.5-10.1 urea nitrogen, blood 10 mg/dL 7-18 creatinine, serum 0.97 mg/dL 0.60-1.30 Estimated Glomerular Filtration Rate (calc) 62 (?) mL/min/1.73m2 = OR > 60 mL/min Encounters Code Encounter Date Provider Facility CPT-59777 [id number] Vst-Est Level III 11:12:16 CDT Br tami Bess DO [facility] CPT-11179 Level 3 Est. Patient 11:34:49 NEEDLE VALVE OPERATOR Perez Mora MD [facility] CPT-05198 Level 4 Est. Patient 09:51:32 NEEDLE VALVE OPERATOR Carlton rich MD [facility] CPT-66456 Level 3 Est. Patient 10:26:00 NEEDLE VALVE OPERATOR Elise stephenson APRN [facility] CPT-69974 Level 3 Est. Patient 13:35:41 NEEDLE VALVE OPERATOR Carlton rich MD [facility] CPT-11672 Level 3 Est. Patient 10:03:52 NEEDLE VALVE OPERATOR Carlton rich MD [facility] CPT-05905 Level 3 Est. Patient 12:17:50 CDT Hugo Restrepo MD [facility] CPT-76391 Level 3 Est. Patient 13:42:38 CDT Elise Are ll [facility] CPT-77166 Level 3 Est. Patient 13:23:51 CDT Diya cobian [facility] CPT-52464 Level 3 Est. Patient 14:22:19 NEEDLE VALVE OPERATOR Diya cobian [facility] CPT-24624 Level 3 Est. Patient 10:11:46 CDT Carlton rich MD [facility] CPT-28542 Level 3 Est. Patient 17:29:43 CDT [facility]ise [facility] CPT-61078 Level 3 Est. Patient 11:58:06 CDT [facility] CPT-86222 Level 4 Est. Patient 14:36:51 CDT Carlton rich MD [facility] CPT-19266 Level 3 Est. Patient 18:16:00 NEEDLE VALVE OPERATOR Blaine HERNANDEZ [facility] CPT-25685 Level 3 Est. Patient 09:45:49 NEEDLE VALVE OPERATOR Carlton rich MD [facility] CPT-55833 Level 3 Est. Patient 13:19:20 CDT Carlton rich MD [facility] CPT-78743 Level 3 Est. Patient 13:06:43 CDT Ridge tam DO [facility] CPT-00798 Level 3 Est. Patient 10:03:07 CDT Perez Mora MD [facility] CPT-19913 Level 3 Est. Patient 19:50:35 NEEDLE VALVE OPERATOR Carlton rich MD [facility]-36006 Level 4 Est. Patient 18:05:01 NEEDLE VALVE OPERATOR Carlton rich MD [facility]-23254 Level 3 Est. Patient 10:45:55 NEEDLE VALVE OPERATOR Hugo Restrepo MD [facility]-73605 Level 3 Est. Patient 14:12:49 CDT Griffin HERNANDEZ [facility]-33744 Level 3 Est. Patient 17:37:24 CDT Carlton rich MD [facility]-63286 Level 3 Est. Patient 16:51:54 CDT Carlton rich MD [facility]-70516 Level 3 Est. Patient 12:18:11 CDT Hugo Restrepo MD [facility]-89534 Level 3 Est. Patient 11:30:25 CDT Marcy crisostomo MD PhD [facility]-36089 Level 3 Est. Patient 12:00:47 NEEDLE VALVE OPERATOR Carlton rich MD [facility]-81122 Level 3 Est. Patient 16:31:06 NEEDLE VALVE OPERATOR Carlton rich MD [facility]-26391 Level 3 Est. Patient 16:23:24 NEEDLE VALVE OPERATOR Ridge tam DO [facility]-91080 Level 3 Est. Patient 12:34:12 CDT Carlton rich MD [facility] CPT-22025 Level 2 Est. Patient 15:43:33 CDT Robi armstrong MD [facility]-84089 Level 4 Est. Patient 14:04:44 CDT Carlton rich MD [facility]-46753 Level 3 Est. Patient 05:47:59 CDT Ridge tam [facility]-00345 Level 3 Est. Patient 13:12:53 NEEDLE VALVE OPERATOR Carlton rich MD [facility] CPT-37331 Level 3 Est. Patient 14:26:53 CDT Hugo Restrepo MD [facility] Procedures Code Procedure Name Date Entry Date Standard Desc ription CPT-000 Give Appropriate Flu Vaccine 14:14:31 CDT 2 CPT-J1040 Depo Medrol 80 mg (Methyl Prednisolone A cetate) 10:42:44 CDT CPT-J1100 Decadron 8mg (Dexamethasone) 10:42:44 CDT 2 CPT-J0696 Rocephin 1gm Inj Solr 14:32:13 CDT CPT-J1020 Depo Medrol 60 mg (Methyl Prednisolone A cetate) 14:32:13 CDT CPT-J1100 Decadron 6mg (Dexamethasone) 14:32:13 CDT 2 CPT-77480 Hip bilat min 2V w AP pelvis 13:16:20 CDT 2 CPT-74646 Pelvis only 13:07:33 CDT CPT-82774 Spec Collection and Handling Fee 11:25:12 C DT CPT-01451 Fluzone Quadrivalent Intramuscular Suspe nsion 0.5 ML 14:31:55 CDT CPT-26983 Abx/Therapy Injection 13:28:47 NEEDLE VALVE OPERATOR CPT-J2930 Solu Medrol 125 mg (Methyl Prednisolone Sodium Succinate) 12:00:47 NEEDLE VALVE OPERATOR CPT-62149 Venipuncture Draw Fee 11:33:31 CDT CPT-93641 EKG Trac and Interp 11:21:09 CDT CPT-19433 Chest 2V Frontal and Lat 11:21:09 CDT 12/15 CPT-05937 Venipuncture Draw Fee 08:02:34 CDT CPT-13555 Chest 2V Frontal and Lat 05:47:59 CDT 06/05
--- OUTSIDE RECORDS SUMMARY | 2019-10-08 09:31 | XMS REPORT | Clinical Summary ---
Author Author Caitlin, Juliana Martinez Organization [facility] Address Unknown Phone Unavailable Allergies, Adverse Reactions, Alerts Allergy Name Reaction Description Start Date Severity Status Pr ovider No Known Allergies Bart Nina Conditions or Problems Problem Name Problem Code [...] Bess DO Body Mass Index 35.0-35.9, adult BRONCHITIS ICD-490 Inactive Hugo Restrepo MD 201 [...] po q d x 4 days AZITHROMYCIN 36650220716 No Longer Active Ridge Bess DO Active PREDNISONE 20 MG ORAL TABLET two tabs by mouth today, then one tab by mouth days two and three and four PREDNISONE 14224713041 Active Arash Bess DO Active PREDNISONE 20 MG ORAL TABLET 2 po qd x 5 days P REDNISONE 73158466292 No Longer Active Perez Mora MD Active PROAIR HFA 108 (90 BASE) MCG/ACT INHALATION AEROSOL SO LUTION 2 puffs four times a day as needed ALBUTEROL SULFATE 18099412924 No Long er Active Becky FUENTES Active ASPIRIN 81 MG ORAL TABLET 1 po qd ASPIRIN 66062731092 Active Carlton Hu MD Active PREDNISONE 20 MG ORAL TABLET 1 tab twice daily for 3 d ay, then one daily for three days PREDNISONE 83034517566 No Longer Active Carlton Hu MD Active AUGMENTIN 875-125 MG ORAL TABLET 1 po BID x 10 days 20 16/03/22 AMOXICILLIN-POT CLAVULANATE 42989909332 No Longer Active Elise Garcia APRN Active TERBINAFINE HCL 250 MG ORAL TABLET 1 qDay for nail fungus 7 TERBINAFINE HCL 78872735423 No Longer Active Carlton Hu MD A ctive TUSSIONEX PENNKINETIC ER 10-8 MG/5ML ORAL SUSPENSION E XTENDED RELEASE 5ml po q12hr PRN Cough HYDROCOD POLST-CHLORPHEN POLST 28698845459 Active Carlton Hu MD Active AMOXICILLIN 500 MG ORAL CAPSULE 1 cap by mouth three times a day AMOXICILLIN 62426729850 No Longer Active Carlton Hu MD Active ELMIRON 100 MG ORAL CAPSULE 2 tablets in the am and 1 tablet at hs PENTOSAN POLYSULFATE SODIUM 54933566141 No Longer Active Robert jade Hu MD Active MUCINEX D 60-600 MG ORAL TABLET EXTENDED RELEASE 12 HOUR 1 t ab po q am PSEUDOEPHEDRINE-GUAIFENESIN 61802920385 No Longer Act nael Carlton Hu MD Active MUCINEX DM MAXIMUM STRENGTH 60-1200 MG ORAL TABLET EXT ENDED RELEASE 12 HOUR 1 tab po q am DEXTROMETHORPHAN-GUAIFENESIN 12202213761 No Longer Active Carlton Hu MD Active TUSSIONEX PENNKINETIC ER 10-8 MG/5ML ORAL SUSPENSION E XTENDED RELEASE 5ml po q12hr PRN Cough HYDROCOD POLST-CHLORPHEN POLST 5 7009133255 No Longer Active Carlton Hu MD Active POTASSIUM CHLORIDE ER 20 MEQ ORAL TABLET EXTENDED RELE ASE Take 1 by mouth 4 times daily for 7 days POTASSIUM CHLORIDE 87920983880 No Longer Active Carlton Hu MD Active ZITHROMAX 250 MG ORAL TABLET 2 po today, then 1 po q days 2-5 14/09/04 AZITHROMYCIN 86066977324 No Longer Active Elise Garcia APRN Active TUSSIONEX PENNKINETIC ER 10-8 MG/5ML ORAL SUSPENSION E XTENDED RELEASE 5 ml twice a day as needed for cough HYDROCOD POLST-CHLORPH EN POLST 63626751339 No Longer Active Elise Garcia APRN Active MONTELUKAST SODIUM 10 MG ORAL TABLET 1 po daily for Allergy MONTELUKAST SODIUM 49656223680 Active Carlton Hu MD Ac tive TUSSIONEX PENNKINETIC ER 10-8 MG/5ML ORAL SUSPENSION E XTENDED RELEASE 5ml po q12hr PRN Cough HYDROCOD POLST-CHLORPHEN POLST 5 3623206660 No Longer Active Hugo Restrepo MD Active GABAPENTIN 100 MG ORAL CAPSULE 1 po BID for fibromyalgia GABAPENTIN 73225519241 Active Carlton Hu MD Active LYRICA 100 MG ORAL CAPSULE Take 1 tab po BID for fibromyalgia 20 11/08/21 PREGABALIN 93469942496 No Longer Active Elise Garcia APRN A ctive PREDNISONE 20 MG ORAL TABLET 2 tabs daily for 3 days, 1 tab daily for 3 days, 1/2 tab daily for 2 days PREDNISONE 55062755293 No Longer Active Venullina Cesarl [employer]CH[employer] INTERN Active TUSSIONEX PENNKINETIC ER 10-8 MG/5ML ORAL SUSPENSION E XTENDED RELEASE 5 mL PO q 12 hrs PRN cough HYDROCOD POLST-CHLORPHEN POLST 148321 60594 No Longer Active Jillina Frazell [employer]CH[employer]ISING INTERN Active FLUTICASONE PROPIONATE 50 MCG/ACT NASAL SUSPENSION 2 s prays each nostril daily until bottle is empty FLUTICASONE PROPIONATE 258002090 99 No Longer Active Jillina Frazell [employer]CH[employer]ISING INTERN Active ASMANEX 60 METERED DOSES 220 MCG/INH INHALATION AEROSO L POWDER BREATH ACTIVATED 1 puff bid with rinse after MOMETASONE FUROATE 3667847 4102 No Longer Active Venullina Cesarl MERCHANDISING INTERN Active ZITHROMAX Z-REYNA 250 MG ORAL TABLET 2 today, then 1 daily for 4 d ays AZITHROMYCIN 05520217774 No Longer Active Elise Garcia APRN Active TUSSIONEX PENNKINETIC ER 10-8 MG/5ML ORAL SUSPENSION E XTENDED RELEASE 5ml po q12hr PRN Cough HYDROCOD POLST-CHLORPHEN POLST 5 5863837433 No Longer Active Elise Garcia APRN Active PREDNISONE 20 MG ORAL TABLET 2 tabs daily for 3 days, 1 tab daily for 3 days, 1/2 tab daily for 2 days PREDNISONE 80084038047 No Longer Active Jillina Daphnezell [employer]CH[employer] INTERN Active AMOXICILLIN 500 MG ORAL CAPSULE 2 po BID x 10 days 201 09/29/08 AMOXICILLIN 16066036817 No Longer Active Jillina Frazell [employer]CH[employer] INTERN Act nael SINGULAIR 10 MG ORAL TABLET 1 po qday for allergies 20 14/01/12 MONTELUKAST SODIUM 91964763312 No Longer Active Carlton Hu MD Active LEVAQUIN 500 MG ORAL TABLET 1 tablet by mouth daily 20 13/09/24 LEVOFLOXACIN 97350113117 No Longer Active Carlton Hu MD Acti ve FLUTICASONE PROPIONATE 50 MCG/ACT NASAL SUSPENSION 2 s prays each nostril daily for 2 weeks, then 1 spray each nostril daily. FLUTICASONE PROPIONATE 10072059961 Active Elisedeirdre Garcia APRN Active ZITHROMAX 250 MG ORAL TABLET 2 po today, then 1 po q days 2-5 20 13/08/10 AZITHROMYCIN 06255497188 No Longer Active Elise Garcia APRN Active XANAX 0.5 MG ORAL TABLET one tablet by mouth daily prn anxiety 2015 ALPRAZOLAM 21977302059 Active ALFREDO Holly Active CYMBALTA 30 MG ORAL CAPSULE DELAYED RELEASE PARTICLES 1 cap by mouth daily for depression DULOXETINE HCL 14290225987 Active Carlton beltrán MD Active CEFDINIR 300 MG ORAL CAPSULE 1 po BID x 10 days CEFDINIR 42884688461 No Longer Active Carlton Hu MD Active ZOCOR 40 MG ORAL TABLET 1 tab by mouth daily SI MVASTATIN 50537848290 No Longer Active Carlton Hu MD Active CYCLOBENZAPRINE HCL 10 MG ORAL TABLET 1 tablet by mouth BID prn had pain CYCLOBENZAPRINE HCL 91880384603 No Longer Active Jayden Hu MD Active LEVOFLOXACIN 500 MG ORAL TABLET 1 tab PO daily x 10 days LEVOFLOXACIN 44039927991 No Longer Active Carlton Hu MD Acti ve PREDNISONE 20 MG ORAL TABLET 3 tab PO qd x 2d, 2 tab P O qd x 2d, 1 tab PO qd x 2d, 1/2 tab PO qd x 2d PREDNISONE 37513902039 No Lo nger Active Carlton Hu MD Active FLUTICASONE PROPIONATE 50 MCG/ACT NASAL SUSPENSION 1 t o 2 sprays each nostril daily FLUTICASONE PROPIONATE 62991693410 No Longer Ac tive Blaine HERNANDEZ Active CHERATUSSIN AC 100-10 MG/5ML ORAL SYRUP 1 tsp by mouth every 4 hours as needed for cough GUAIFENESIN-CODEINE 21107559980 No Longe r Active Blaine HERNANDEZ Active PROMETHAZINE-CODEINE 6.25-10 MG/5ML ORAL SYRUP 1 tsp b y mouth every 6 hours if needed for cough PROMETHAZINE-CODEINE 54479811017 No Longer Active Blaine HERNANDEZ Active CHERATUSSIN AC 100-10 MG/5ML ORAL SYRUP 1 tsp by mouth every 4 hours as needed for cough GUAIFENESIN-CODEINE 58393066048 No Longe r Active Blaine HERNANDEZ Active ZITHROMAX Z-REYNA 250 MG ORAL TABLET 2 today, then 1 daily for 4 d ays AZITHROMYCIN 44731597789 No Longer Active Columba Raida Act nael ZITHROMAX 250 MG ORAL TABLET 2 po today, then 1 po q days 2-5 20 14/03/21 AZITHROMYCIN 68896105873 No Longer Active Carlton Hu MD Active ZITHROMAX Z-REYNA 250 MG ORAL TABLET 2 today, then 1 daily for 4 d ays AZITHROMYCIN 35431906071 No Longer Active Columba Raida Act nael AUGMENTIN 875-125 MG ORAL TABLET 1 po BID x 10 days 13/01/20 AMOXICILLIN-POT CLAVULANATE 15307817100 No Longer Active Diya De Guzman APRN Active ZITHROMAX 250 MG ORAL TABLET 2 po today, then 1 po q days 2-5 12/08/14 AZITHROMYCIN 33583301166 No Longer Active Carlton Hu MD Active TRAMADOL HCL 50 MG ORAL TABLET 1 po tid with ES Tylenol TRAMADOL HCL 24230470976 Active ALFREDO Holly Active PREMARIN 0.625 MG ORAL TABLET TAKE 1 TAB BY MOUTH DAILY ESTROGENS CONJUGATED 97942962619 No Longer Active Ridge Bess DO A ctive CYMBALTA 30 MG ORAL CAPSULE DELAYED RELEASE PARTICLES 1 cap by mouth daily DULOXETINE HCL 85499251781 No Longer Active Ridge Ya ee DO Active AMOXICILLIN 500 MG ORAL CAPSULE 1 tab by mouth 3 times daily x 10 days AMOXICILLIN 13450039787 No Longer Active Carlton bustamante MD Active AMOXICILLIN 500 MG ORAL CAPSULE 1 tab by mouth 3 times daily x 10 days AMOXICILLIN 81612410264 No Longer Active Carlton bustamante MD Active PROMETHAZINE-CODEINE 6.25-10 MG/5ML ORAL SYRUP 1 tsp b y mouth every 8 hours prn cough PROMETHAZINE-CODEINE 03589703133 No Longer Acti ve Carlton Hu MD Active MEDROL 4 MG ORAL TABLET THERAPY PACK 6 pills x 1 day, then 5 pills x 1 day then 4 pills x 1 day, then 3 pills x 1 day, then 2 pills x 1 day, then 1 pill x 1 day, then stop METHYLPREDNISOLONE 81623657861 No Long er Active Perez Mora MD Active AZITHROMYCIN 250 MG ORAL TABLET 2 po qd x 1 day, then 1 po q d x 4 days AZITHROMYCIN 07346171116 No Longer Active Perez Ambriz MD Active SYMBICORT 160-4.5 MCG/ACT INHALATION AEROSOL 2 puffs bid wit h rinse after BUDESONIDE-FORMOTEROL FUMARATE 17969659799 N o Longer Active Perez Mora MD Active LYRICA 75 MG ORAL CAPSULE TAKE 1 CAPSULE BY MOUTH TWICE DAILY PREGABALIN 18731297782 No Longer Active Carlton Hu MD Acti ve TOPAMAX 25 MG ORAL TABLET 1 qHS x 1 week, then 1 BID x 1 week, then 1 qAM and 2 qHS x 1 week, then 2 BID (migraine prevention) T OPIRAMATE 93438123684 No Longer Active Jerica FUENTES Active TOPAMAX 50 MG ORAL TABLET take 1 tab po BID for migraines. 07/02 TOPIRAMATE 81727135497 No Longer Active Jerica FUENTES Active TOPAMAX 100 MG ORAL TABLET Take 1 tablet po bid TO PIRAMATE 17342716983 Active Carlton Hu MD Active TRIAMCINOLONE ACETONIDE 0.1 % EXTERNAL CREAM apply three roger es daily prn rash TRIAMCINOLONE ACETONIDE 26410713497 No Longer Active Carlton Hu MD Active PAXIL 40 MG ORAL TABLET take 1 tab po qday for depression 0 PAROXETINE HCL 00538387313 Active ALFREDO Holly Active CHERATUSSIN AC 100-10 MG/5ML ORAL SYRUP 5ml po q6hr PRN Cough 20 13/04/14 GUAIFENESIN-CODEINE 67059863538 No Longer Active Carlton Hu MD Active MEDROL 4 MG ORAL TABLET THERAPY PACK 6 tabs on day 1, 5 tabs on day 2, 4 tabs on day 3, 3 tabs on day 4, 2 tabs on day 5, 1 tab on day 6 2013 METHYLPREDNISOLONE 14393697481 No Longer Active Perez Mora MD Active AZITHROMYCIN 250 MG ORAL TABLET 2 po qd x 1 day, then 1 po q d x 4 days AZITHROMYCIN 67301756289 No Longer Active Perez Ambriz MD Active PROPRANOLOL HCL 60 MG ORAL TABLET 1 PO Q D PROPRANOLOL HCL 24283045515 No Longer Active Perez Mora MD Activ e CHERATUSSIN AC 100-10 MG/5ML ORAL SYRUP take one tsp po Q 6h ours prn cough GUAIFENESIN-CODEINE 21867679114 No Longer Active Zia Mora MD Active AUGMENTIN 875-125 MG ORAL TABLET 1 tab by mouth twice daily with food AMOXICILLIN-POT CLAVULANATE 79842961639 No Longer Act nael Perez Mora MD Active CHERATUSSIN AC 100-10 MG/5ML ORAL SYRUP 1 tsp by mouth every 4 hours as needed for cough GUAIFENESIN-CODEINE 53616368344 No Longe r Active Hugo Restrepo MD Active ACETAMINOPHEN-CODEINE #3 300-30 MG ORAL TABLET 1 PO Q 4-6 HRS [place] N PAIN ACETAMINOPHEN-CODEINE 85683826349 No Longer Active Hugo Restrepo MD Active LEVAQUIN 500 MG ORAL TABLET take one po QD LEVO FLOXACIN 12587913309 No Longer Active Griffin HERNANDEZ Active PREDNISONE 20 MG ORAL TABLET Take 3 tabs daily for 3 d ays, 2 tabs daily for 3 days, 1 tab daily for 3 days, 1/2 tab daily for 3 days 11/07 PREDNISONE 87591778671 No Longer Active Carlton Hu MD Acti ve AVELOX 400 MG ORAL TABLET 1 tab by mouth daily MOXIFLOXACIN HCL 52336358086 No Longer Active Carlton Hu MD Active CHERATUSSIN AC 100-10 MG/5ML ORAL SYRUP 1 tsp by mouth every 4 hours as needed for cough GUAIFENESIN-CODEINE 22680563187 No Longe r Active Hugo Restrepo MD Active AVELOX 400 MG ORAL TABLET 1 tab by mouth daily MOXIFLOXACIN HCL 05993909588 No Longer Active Marcy De La Rosa MD PhD Active TERBINAFINE HCL 250 MG ORAL TABLET 1 qDay T ERBINAFINE HCL 67569358617 No Longer Active Marcy De La Rosa MD PhD Active CHERATUSSIN AC 100-10 MG/5ML ORAL SYRUP 1 tsp by mouth every 4 hours as needed for cough GUAIFENESIN-CODEINE 23908546518 No Longe r Active Marcy De La Rosa MD PhD Active AVELOX 400 MG ORAL TABLET 1 tab by mouth daily MOXIFLOXACIN HCL 71665098337 No Longer Active Marcy De La Rosa MD PhD Active HYDROCODONE-ACETAMINOPHEN 5-325 MG ORAL TABLET 1 po q 6hr PRN co ugh HYDROCODONE-ACETAMINOPHEN 24018491694 No Longer Active Marcy De La Rosa MD PhD Active PREDNISONE 20 MG ORAL TABLET 2 tabs daily for 3 days, 1 tab daily for 3 days, 1/2 tab daily for 2 days PREDNISONE 43597003662 No Longer Active Carlton Hu MD Active CEFDINIR 300 MG ORAL CAPSULE by mouth twice a day 2011 CEFDINIR 60495875056 No Longer Active Carlton Hu MD Acti ve HYDROCHLOROTHIAZIDE 25 MG ORAL TABLET 1 TAB PO DAILY HYDROCHLOROTHIAZIDE 40496490345 Active ALFREDO Holly Ac tive ACETAMINOPHEN-CODEINE #3 300-30 MG ORAL TABLET 1 tablet po q 4-6 hrs prn pain ACETAMINOPHEN-CODEINE 23178598058 No Longer Active Ridge Bess DO Active ZITHROMAX 250 MG ORAL TABLET 2 po today, then 1 po q days 2-5 20 03/07/07 AZITHROMYCIN 70374834750 No Longer Active Carlton Hu MD Active CHERATUSSIN AC 100-10 MG/5ML ORAL SYRUP take 1 tsp po q4-6 h ours prn cough GUAIFENESIN-CODEINE 57695967326 No Longer Active Jayden Hu MD Active ACETAMINOPHEN-CODEINE #3 300-30 MG ORAL TABLET 1 PO Q 4-6 HR PRN PAIN ACETAMINOPHEN-CODEINE 67294974892 No Longer Active Arnol Hu MD Active LORTAB 7.5-500 MG/15ML ORAL ELIXIR 7.5 ml po q 4 hour prn cough HYDROCODONE-ACETAMINOPHEN 58749614520 No Longer Active Carlton Hu MD Active PREDNISONE 20 MG ORAL TABLET 1 po bid 3 days, then 1 po q day 3 days PREDNISONE 77478518200 No Longer Active Carlton Hu MD Active CEFDINIR 300 MG ORAL CAPSULE by mouth twice a day 2011 CEFDINIR 16201548350 No Longer Active Carlton Hu MD Acti ve CEFDINIR 300 MG ORAL CAPSULE by mouth twice a day 2010 CEFDINIR 48073509617 No Longer Active Carlton Hu MD Acti ve CEFDINIR 300 MG ORAL CAPSULE by mouth twice a day 2010 CEFDINIR 07008796976 No Longer Active Carlton Hu MD Acti ve TESSALON PERLES 100 MG ORAL CAPSULE 1 tablet by mouth 3 times daily as needed for cough BENZONATATE 91469119481 No Longer Active Carlton Hu MD Active CEFDINIR 300 MG ORAL CAPSULE by mouth twice a day 2010 CEFDINIR 89660641167 No Longer Active Carlton Hu MD Acti ve ZITHROMAX Z-REYNA 250 MG ORAL TABLET 2 today, then 1 daily for 4 d ays AZITHROMYCIN 01265076221 No Longer Active Hugo Restrepo MD Active TESSALON PERLES 100 MG ORAL CAPSULE 1 tablet by mouth 3 times daily as needed for cough TESSALON PERLES 100 MG ORAL CAPSULE 11307 7 BENZONATATE Inactive PREDNISONE 20 MG ORAL TABLET 1 po bid 3 days, then 1 po q day 3 days PREDNISONE 20 MG ORAL TABLET 199575 PREDNISONE [place] ctive LORTAB 7.5-500 MG/15ML ORAL ELIXIR 7.5 [...] cough CHERATUSSIN AC 100-10 MG/5ML ORAL SYRUP 190034 GUAIFENESIN-CODEINE Inactive ACETAMINOPHEN-CODEINE #3 300-30 MG ORAL TABLET 1 tablet po q 4-6 hrs prn pain ACETAMINOPHEN-CODEINE #3 300-30 MG ORAL TABLET ACETAMINOPHEN-CODEINE Inactive HYDROCODONE-ACETAMINOPHEN 5-325 MG ORAL TABLET 1 po q 6hr PRN co ugh HYDROCODONE-ACETAMINOPHEN 5-325 MG ORAL TABLET 036163 HYDROCODONE-ACETAMINOPHEN Inactive AVELOX 400 MG ORAL TABLET 1 tab by mouth daily AVELOX 400 MG ORAL TABLET 958249 MOXIFLOXACIN HCL Inactive CHERATUSSIN AC 100-10 MG/5ML ORAL SYRUP 1 tsp by mouth every 4 hours as needed for cough CHERATUSSIN AC 100-10 MG/5ML ORAL SYRUP 9 04573 GUAIFENESIN-CODEINE Inactive TERBINAFINE HCL 250 MG ORAL TABLET 1 qDay 07/08 TERBINAFINE HCL 250 MG ORAL TABLET 245078 TERBINAFINE HCL Inactive CHERATUSSIN AC 100-10 MG/5ML ORAL SYRUP 1 tsp by mouth every 4 hours as needed for cough CHERATUSSIN AC 100-10 MG/5ML ORAL SYRUP 9 80100 GUAIFENESIN-CODEINE Inactive ACETAMINOPHEN-CODEINE #3 300-30 MG ORAL TABLET 1 PO Q 4-6 HRS TN N PAIN ACETAMINOPHEN-CODEINE #3 300-30 MG ORAL TABLET ACETAMINOPHEN-CODEINE Inactive CHERATUSSIN AC 100-10 MG/5ML ORAL SYRUP 1 tsp by mouth every 4 hours as needed for cough CHERATUSSIN AC 100-10 MG/5ML ORAL SYRUP 9 97282 GUAIFENESIN-CODEINE Inactive AUGMENTIN 875-125 MG ORAL TABLET 1 tab by mouth twice daily with food AUGMENTIN 875-125 MG ORAL TABLET 900220 AMOXICIL MADELINE-POT CLAVULANATE Inactive CHERATUSSIN AC 100-10 MG/5ML ORAL SYRUP take one tsp po Q 6h ours prn cough CHERATUSSIN AC 100-10 MG/5ML ORAL SYRUP 811140 GUAIFENESIN-CODEINE Inactive PROPRANOLOL HCL 60 MG ORAL TABLET 1 PO Q D PROPRANOLOL HCL 60 MG ORAL TABLET 287385 PROPRANOLOL HCL Inactive TOPAMAX 50 MG ORAL TABLET take 1 tab po BID for migraines. 07/02 TOPAMAX 50 MG ORAL TABLET 716637 TOPIRAMATE Inacti ve TOPAMAX 25 MG ORAL TABLET 1 qHS x 1 week, then 1 BID x 1 week, then 1 qAM and 2 qHS x 1 week, then 2 BID (migraine prevention) TOPAMAX 25 MG ORAL TABLET 693855 TOPIRAMATE Inactive LYRICA 75 MG ORAL CAPSULE TAKE 1 CAPSULE BY MOUTH TWICE DAILY LYRICA 75 MG ORAL CAPSULE PREGABALIN Inactive SYMBICORT 160-4.5 MCG/ACT INHALATION AEROSOL 2 puffs bid wit h rinse after SYMBICORT 160-4.5 MCG/ACT INHALATION AEROSOL BUDESONIDE- FORMOTEROL FUMARATE Inactive PROMETHAZINE-CODEINE 6.25-10 MG/5ML ORAL SYRUP 1 tsp b y mouth every 8 hours prn cough PROMETHAZINE-CODEINE 6.25-10 MG/ 5ML ORAL SYRUP 481208 PROMETHAZINE-CODEINE Inactive CYMBALTA 30 MG ORAL CAPSULE DELAYED RELEASE PARTICLES 1 cap by mouth daily CYMBALTA 30 MG ORAL CAPSULE DELAYED RELE ASE PARTICLES 667157 DULOXETINE HCL Inactive PREMARIN 0.625 MG ORAL TABLET TAKE 1 TAB BY MOUTH DAILY PREMARIN 0.625 MG ORAL TABLET ESTROGENS CONJUGATED Inactive CHERATUSSIN AC 100-10 MG/5ML ORAL SYRUP 1 tsp by mouth every 4 hours as needed for cough CHERATUSSIN AC 100-10 MG/5ML ORAL SYRUP 9 38732 GUAIFENESIN-CODEINE Inactive PROMETHAZINE-CODEINE 6.25-10 MG/5ML ORAL SYRUP 1 tsp b y mouth every 6 hours if needed for cough PROMETHAZINE-CODEINE 6.25-10 MG/5ML ORAL SYRUP 573099 PROMETHAZINE-CODEINE Inactive CHERATUSSIN AC 100-10 MG/5ML ORAL SYRUP 1 tsp by mouth every 4 hours as needed for cough CHERATUSSIN AC 100-10 MG/5ML ORAL SYRUP 9 89863 GUAIFENESIN-CODEINE Inactive FLUTICASONE PROPIONATE 50 MCG/ACT NASAL SUSPENSION 1 t o 2 sprays each nostril daily FLUTICASONE PROPIONATE 50 MCG/AC T NASAL SUSPENSION 3414209 FLUTICASONE PROPIONATE Inactive PREDNISONE 20 MG ORAL TABLET 3 tab PO qd x 2d, 2 tab P O qd x 2d, 1 tab PO qd x 2d, 1/2 tab PO qd x 2d PREDNISONE 20 MG ORAL TAB LET 559464 PREDNISONE Inactive LEVOFLOXACIN 500 MG ORAL TABLET 1 tab PO daily x 10 days LEVOFLOXACIN 500 MG ORAL TABLET 481006 LEVOFLOXACIN Inactive CYCLOBENZAPRINE HCL 10 MG ORAL TABLET 1 tablet by mouth BID prn had pain CYCLOBENZAPRINE HCL 10 MG ORAL TABLET 845053 CYCLOBENZAPRINE HCL Inactive ZOCOR 40 MG ORAL TABLET 1 tab by mouth daily 4 ZOCOR 40 MG ORAL TABLET 067848 SIMVASTATIN Inactive TUSSIONEX PENNKINETIC ER 10-8 MG/5ML [...] FLUTICASONE PROPIO EFE 50 MCG/ACT NASAL SUSPENSION 2076400 FLUTICASONE PROPIONATE Inactive TUSSIONEX PENNKINETIC ER 10-8 [...] three days PREDNISONE 20 MG ORAL TABLET 199799 PREDNIS ONE Inactive PROAIR HFA 108 (90 BASE) MCG/ACT INHALATION AEROSOL SO LUTION 2 puffs four times a day as needed PROAIR HFA 108 (90 B ASE) MCG/ACT INHALATION AEROSOL SOLUTION ALBUTEROL SULFATE Inactive ZITHROMAX Z-REYNA 250 MG ORAL TABLET 2 today, then 1 daily for 4 d ays ZITHROMAX Z-REYNA 250 MG ORAL TABLET 867911 AZITHROMYCIN Inactive CEFDINIR 300 MG ORAL CAPSULE by mouth twice a day 2010 CEFDINIR 300 MG ORAL CAPSULE 967251 CEFDINIR Inactive CEFDINIR 300 MG ORAL CAPSULE by mouth twice a day 2010 CEFDINIR 300 MG ORAL CAPSULE 393215 CEFDINIR Inactive CEFDINIR 300 MG ORAL CAPSULE by mouth twice a day 2010 CEFDINIR 300 MG ORAL CAPSULE 113119 CEFDINIR Inactive CEFDINIR 300 MG ORAL CAPSULE by mouth twice a day 2011 CEFDINIR 300 MG ORAL CAPSULE 942801 CEFDINIR Inactive ZITHROMAX 250 MG ORAL TABLET 2 po today, then 1 po q days 2-5 20 03/07/07 ZITHROMAX 250 MG ORAL TABLET 672586 AZITHROMYCIN [place] ctive CEFDINIR 300 MG ORAL CAPSULE by mouth twice a day 2011 CEFDINIR 300 MG ORAL CAPSULE 905130 CEFDINIR Inactive PREDNISONE 20 MG ORAL TABLET 2 tabs daily for 3 days, 1 tab daily for 3 days, 1/2 tab daily for 2 days PREDNISONE 20 MG ORAL T ABLET 921703 PREDNISONE Inactive AVELOX 400 MG ORAL TABLET 1 tab by mouth daily AVELOX 400 MG ORAL TABLET 393366 MOXIFLOXACIN HCL Inactive AVELOX 400 MG ORAL TABLET 1 tab by mouth daily AVELOX 400 MG ORAL TABLET 856963 MOXIFLOXACIN HCL Inactive PREDNISONE 20 MG ORAL TABLET Take 3 tabs daily for 3 d ays, 2 tabs daily for 3 days, 1 tab daily for 3 days, 1/2 tab daily for 3 days 11/07 PREDNISONE 20 MG ORAL TABLET 316793 PREDNISONE Inactive LEVAQUIN 500 MG ORAL TABLET take one po QD LEVAQUIN 500 MG ORAL TABLET 608097 LEVOFLOXACIN Inactive AZITHROMYCIN 250 MG ORAL TABLET 2 po qd x 1 day, then 1 po q d x 4 days AZITHROMYCIN 250 MG ORAL TABLET 856574 AZITHROMY GIOVANNI Inactive MEDROL 4 MG ORAL TABLET THERAPY PACK 6 tabs on day 1, 5 tabs on day 2, 4 tabs on day 3, 3 tabs on day 4, 2 tabs on day 5, 1 tab on day 6 2013 MEDROL 4 MG ORAL TABLET THERAPY PACK 086366 METHYLPREDNISOLONE [place] ctive CHERATUSSIN AC 100-10 MG/5ML ORAL SYRUP 5ml po q6hr PRN Cough 20 13/04/14 CHERATUSSIN AC 100-10 MG/5ML ORAL SYRUP 637126 GUAIFENE SIN-CODEINE Inactive TRIAMCINOLONE ACETONIDE 0.1 % EXTERNAL CREAM apply three roger es daily prn rash TRIAMCINOLONE ACETONIDE 0.1 % EXTERNAL CREAM 101 4314 TRIAMCINOLONE ACETONIDE Inactive AZITHROMYCIN 250 MG ORAL TABLET 2 po qd x 1 day, then 1 po q d x 4 days AZITHROMYCIN 250 MG ORAL TABLET 598984 AZITHROMY GIOVANNI Inactive MEDROL 4 MG ORAL TABLET THERAPY PACK 6 pills x 1 day, then 5 pills x 1 day then 4 pills x 1 day, then 3 pills x 1 day, then 2 pills x 1 day, then 1 pill x 1 day, then stop MEDROL 4 MG ORAL TABLET THERAPY PACK 482255 METHYLPREDNISOLONE Inactive AMOXICILLIN 500 MG ORAL CAPSULE 1 tab by mouth 3 times daily x 10 days AMOXICILLIN 500 MG ORAL CAPSULE 005482 AMOXICILL IN Inactive AMOXICILLIN 500 MG ORAL CAPSULE 1 tab by mouth 3 times daily x 10 days AMOXICILLIN 500 MG ORAL CAPSULE 887604 AMOXICILL IN Inactive ZITHROMAX 250 MG ORAL TABLET 2 po today, then 1 po q days 2-5 20 12/08/14 ZITHROMAX 250 MG ORAL TABLET 014710 AZITHROMYCIN [place] ctive AUGMENTIN 875-125 MG ORAL TABLET 1 po BID x 10 days 20 13/01/20 AUGMENTIN 875-125 MG ORAL TABLET 989650 AMOXICILLIN-POT CLAVULANATE Inactive ZITHROMAX Z-REYNA 250 MG ORAL TABLET 2 today, then 1 daily for 4 d ays ZITHROMAX Z-REYNA 250 MG ORAL TABLET 821010 AZITHROMYCIN Inactive ZITHROMAX 250 MG ORAL TABLET 2 po today, then 1 po q days 2-5 20 14/03/21 ZITHROMAX 250 MG ORAL TABLET 980987 AZITHROMYCIN [place] ctive ZITHROMAX Z-REYNA 250 MG ORAL TABLET 2 today, then 1 daily for 4 d ays ZITHROMAX Z-REYNA 250 MG ORAL TABLET 619344 AZITHROMYCIN Inactive CEFDINIR 300 MG ORAL CAPSULE 1 po BID x 10 days 06/21 CEFDINIR 300 MG ORAL CAPSULE 003065 CEFDINIR Inactive ZITHROMAX 250 MG ORAL TABLET 2 po today, then 1 po q days 2-5 20 13/08/10 ZITHROMAX 250 MG ORAL TABLET 727288 AZITHROMYCIN [place] ctive LEVAQUIN 500 MG ORAL TABLET 1 tablet by mouth daily 20 13/09/24 LEVAQUIN 500 MG ORAL TABLET 344146 LEVOFLOXACIN Inactive SINGULAIR 10 MG ORAL TABLET 1 po qday for allergies 20 14/01/12 SINGULAIR 10 MG ORAL TABLET 773622 MONTELUKAST SODIUM Inactive AMOXICILLIN 500 MG ORAL CAPSULE 2 po BID x 10 days 201 09/29/08 AMOXICILLIN 500 MG ORAL CAPSULE 811096 AMOXICILLIN Inactive PREDNISONE 20 MG ORAL TABLET 2 tabs daily for 3 days, 1 tab daily for 3 days, 1/2 tab daily for 2 days PREDNISONE 20 MG ORAL T ABLET 853435 PREDNISONE Inactive ZITHROMAX Z-REYNA 250 MG ORAL TABLET 2 today, then 1 daily for 4 d ays ZITHROMAX Z-REYNA 250 MG ORAL TABLET 198617 AZITHROMYCIN Inactive PREDNISONE 20 MG ORAL TABLET 2 tabs daily for 3 days, 1 tab daily for 3 days, 1/2 tab daily for 2 days PREDNISONE 20 MG ORAL T ABLET 781988 PREDNISONE Inactive ZITHROMAX 250 MG ORAL TABLET 2 po today, then 1 po q days 2-5 20 14/09/04 ZITHROMAX 250 MG ORAL TABLET 368395 AZITHROMYCIN Greer ctive AMOXICILLIN 500 MG ORAL CAPSULE 1 cap by mouth three times a day AMOXICILLIN 500 MG ORAL CAPSULE 476865 AMOXICILLIN Inactive TERBINAFINE HCL 250 MG ORAL TABLET 1 qDay for nail fungus 7 TERBINAFINE HCL 250 MG ORAL TABLET 014918 TERBINAFINE HCL Inact nael AUGMENTIN 875-125 MG ORAL TABLET 1 po BID x 10 days 16/03/22 AUGMENTIN 875-125 MG ORAL TABLET 404626 AMOXICILLIN-POT CLAVULANATE Inactive PREDNISONE 20 MG ORAL TABLET 2 po qd x 5 days PREDNISONE 20 MG ORAL TABLET 376027 PREDNISONE Inactive AZITHROMYCIN 250 MG ORAL TABLET 2 po qd x 1 day, then 1 po q d x 4 days AZITHROMYCIN 250 MG ORAL TABLET 055946 AZITHROMY GIOVANNI Inactive Vital Signs Date Name Value Unit Range Description blood pressure, diastolic 75 mm[Hg] BP srinivasan [...] - Chem istry sodium, serum 139 mmol/L 046-882 5869/03/19 potassium, serum 3.6 mmol/L 3.5-5.2 chloride, serum 100 mmol/L 98-107 carbon dioxide, venous blood 30.3 mmol/L 21.0-32 .0 blood glucose 101 mg/dL 65-110 calcium, serum 9.4 mg/dL 8.5-10.1 urea nitrogen, blood 10 mg/dL 7-18 creatinine, serum 0.96 mg/dL 0.60-1.30 sodium, serum 139 mmol/L 769-896 5778/10/12 potassium, serum 3.8 mmol/L 3.5-5.2 chloride, serum 102 mmol/L 98-107 carbon dioxide, venous blood 29.4 mmol/L 21.0-32 .0 blood glucose 103 mg/dL 65-95 calcium, serum 8.8 mg/dL 8.5-10.1 urea nitrogen, blood 10 mg/dL 7-18 creatinine, serum 0.97 mg/dL 0.60-1.30 Estimated Glomerular Filtration Rate (calc) 62 (?) mL/min/1.73m2 = OR > 60 mL/min Encounters Code Encounter Date Provider Facility [id number] [id number] Vst-Est Level III 11:12:16 CDT Yanet Bess DO [facility]-19152 Level 3 Est. Patient 11:34:49 CIRCUS TRAINER Perez Mora MD [facility] CPT-44913 Level 4 Est. Patient 09:51:32 CIRCUS TRAINER Carlton rich MD [facility]-29093 Level 3 Est. Patient 10:26:00 CIRCUS TRAINER Elise Are ll [facility] CPT-02177 Level 3 Est. Patient 13:35:41 CIRCUS TRAINER Carlton rich MD [facility]-32501 Level 3 Est. Patient 10:03:52 CIRCUS TRAINER Carlton rich MD [facility] CPT-29149 Level 3 Est. Patient 12:17:50 CDT Hugo Restrepo MD [facility]-65650 Level 3 Est. Patient 13:42:38 CDT [facility] CPT-65704 Level 3 Est. Patient 13:23:51 CDT Diya cobian [facility]-89060 Level 3 Est. Patient 14:22:19 CIRCUS TRAINER Diya cobian [facility] CPT-79468 Level 3 Est. Patient 10:11:46 CDT Carlton rich MD [facility] CPT-25531 Level 3 Est. Patient 17:29:43 CDT Elise Are ll [facility] CPT-19812 Level 3 Est. Patient 11:58:06 CDT Elise Are ll [facility] CPT-28408 Level 4 Est. Patient 14:36:51 CDT Carlton rich MD [facility]-51312 Level 3 Est. Patient 18:16:00 CIRCUS TRAINER Blaine Freeman [facility]-25679 Level 3 Est. Patient 09:45:49 CIRCUS TRAINER Carlton rich MD [facility] CPT-96918 Level 3 Est. Patient 13:19:20 CDT Carlton rich MD [facility] CPT-46665 Level 3 Est. Patient 13:06:43 CDT Ridge tam DO [facility] CPT-28384 Level 3 Est. Patient 10:03:07 CDT Perez Mora MD [facility] CPT-68148 Level 3 Est. Patient 19:50:35 CIRCUS TRAINER Carlton rich MD [facility] CPT-28017 Level 4 Est. Patient 18:05:01 CIRCUS TRAINER Carlton rich MD [facility] CPT-55293 Level 3 Est. Patient 10:45:55 CIRCUS TRAINER Hugo Restrepo MD [facility]-60150 Level 3 Est. Patient 14:12:49 CDT Griffin lincoln [facility] CPT-00984 Level 3 Est. Patient 17:37:24 CDT Carlton rich MD [facility] CPT-41698 Level 3 Est. Patient 16:51:54 CDT Carlton rich MD [facility] CPT-41538 Level 3 Est. Patient 12:18:11 CDT Hugo Restrepo MD [facility] CPT-82818 Level 3 Est. Patient 11:30:25 CDT Marcy crisostomo MD PhD [facility] CPT-54486 Level 3 Est. Patient 12:00:47 CIRCUS TRAINER Carlton rich MD [facility] CPT-37983 Level 3 Est. Patient 16:31:06 CIRCUS TRAINER Carlton rich MD [facility] CPT-21479 Level 3 Est. Patient 16:23:24 CIRCUS TRAINER Ridge tam [facility] CPT-79286 Level 3 Est. Patient 12:34:12 CDT Carlton rich MD [facility] CPT-39743 Level 2 Est. Patient 15:43:33 CDT Robi armstrong MD [facility] CPT-74711 Level 4 Est. Patient 14:04:44 CDT Carlton rich MD [facility] CPT-47734 Level 3 Est. Patient 05:47:59 CDT Ridge tam [facility] CPT-78117 Level 3 Est. Patient 13:12:53 CIRCUS TRAINER Carlton rich MD [facility] CPT-36151 Level 3 Est. Patient 14:26:53 CDT Hugo [...] CPT-J1100 Decadron 6mg (Dexamethasone) 14:32:13 CDT 2 CPT-04564 Hip bilat min 2V w AP pelvis 13:16:20 CDT 2 CPT-90005 Pelvis only 13:07:33 CDT CPT-90482 Spec Collection and Handling Fee 11:25:12 C DT CPT-33773 Fluzone Quadrivalent Intramuscular Suspe nsion 0.5 ML 14:31:55 CDT CPT-02786 Abx/Therapy Injection 13:28:47 CIRCUS TRAINER CPT-J2930 Solu Medrol 125 mg (Methyl Prednisolone Sodium Succinate) 12:00:47 CIRCUS TRAINER CPT-89897 Venipuncture Draw Fee 11:33:31 CDT CPT-32628 EKG Trac and Interp 11:21:09 CDT CPT-92962 Chest 2V Frontal and Lat 11:21:09 CDT 12/15 CPT-93726 Venipuncture Draw Fee 08:02:34 CDT CPT-04859 Chest 2V Frontal and Lat 05:47:59 CDT 06/05
--- OUTSIDE RECORDS SUMMARY | 2019-10-08 09:32 | XMS REPORT | Clinical Summary ---
Author Author Caitlin, Juliana Martinez Organization [facility] Address Unknown Phone Unavailable Allergies, Adverse [...] po q d x 4 days AZITHROMYCIN [id number] No Longer Active Ridge Bess DO Active PREDNISONE 20 MG ORAL TABLET two tabs by mouth today, then one tab by mouth days two and three and four PREDNISONE 32914815270 Active Arash Bess DO Active PREDNISONE 20 MG ORAL TABLET 2 po qd x 5 days P REDNISONE 02191300486 No Longer Active Perez Mora MD Active PROAIR HFA 108 (90 BASE) MCG/ACT INHALATION AEROSOL SO LUTION 2 puffs four times a day as needed ALBUTEROL SULFATE 70035735867 No Long er Active Becky FUENTES Active ASPIRIN 81 MG ORAL TABLET 1 po qd ASPIRIN 98694437233 Active Carlton Hu MD Active PREDNISONE 20 MG ORAL TABLET 1 tab twice daily for 3 d ay, then one daily for three days PREDNISONE 91815362338 No Longer Active Cralton Hu MD Active AUGMENTIN 875-125 MG ORAL TABLET 1 po BID x 10 days 20 16/03/22 AMOXICILLIN-POT CLAVULANATE 27276983178 No Longer Active Elise Garcia APRN Active TERBINAFINE HCL 250 MG ORAL TABLET 1 qDay for nail fungus 7 TERBINAFINE HCL 90401905422 No Longer Active Carlton Hu MD A ctive TUSSIONEX PENNKINETIC ER 10-8 MG/5ML ORAL SUSPENSION E XTENDED RELEASE 5ml po q12hr PRN Cough HYDROCOD POLST-CHLORPHEN POLST 31380746814 Active Carlton Hu MD Active AMOXICILLIN 500 MG ORAL CAPSULE 1 cap by mouth three times a day AMOXICILLIN 75443818258 No Longer Active Carlton Hu MD Active ELMIRON 100 MG ORAL CAPSULE 2 tablets in the am and 1 tablet at hs PENTOSAN POLYSULFATE SODIUM 59364845688 No Longer Active Robert jade Hu MD Active MUCINEX D 60-600 MG ORAL TABLET EXTENDED RELEASE 12 HOUR 1 t ab po q am PSEUDOEPHEDRINE-GUAIFENESIN 06036065511 No Longer Act nael Carlton Hu MD Active MUCINEX DM MAXIMUM STRENGTH 60-1200 MG ORAL TABLET EXT ENDED RELEASE 12 HOUR 1 tab po q am DEXTROMETHORPHAN-GUAIFENESIN 91920445298 No Longer Active Carlton Hu MD Active TUSSIONEX PENNKINETIC ER 10-8 MG/5ML ORAL SUSPENSION E XTENDED RELEASE 5ml po q12hr PRN Cough HYDROCOD POLST-CHLORPHEN POLST 5 2630395045 No Longer Active Carlton Hu MD Active POTASSIUM CHLORIDE ER 20 MEQ ORAL TABLET EXTENDED RELE ASE Take 1 by mouth 4 times daily for 7 days POTASSIUM CHLORIDE 76533917689 No Longer Active Carlton Hu MD Active ZITHROMAX 250 MG ORAL TABLET 2 po today, then 1 po q days 2-5 14/09/04 AZITHROMYCIN 82358831171 No Longer Active Elise Garcia APRN Active TUSSIONEX PENNKINETIC ER 10-8 MG/5ML ORAL SUSPENSION E XTENDED RELEASE 5 ml twice a day as needed for cough HYDROCOD POLST-CHLORPH EN POLST 06451376360 No Longer Active Elise Garcia APRN Active MONTELUKAST SODIUM 10 MG ORAL TABLET 1 po daily for Allergy MONTELUKAST SODIUM 88845547280 Active Carlton Hu MD Ac tive TUSSIONEX PENNKINETIC ER 10-8 MG/5ML ORAL SUSPENSION E XTENDED RELEASE 5ml po q12hr PRN Cough HYDROCOD POLST-CHLORPHEN POLST 5 7771192213 No Longer Active Hugo Restrepo MD Active GABAPENTIN 100 MG ORAL CAPSULE 1 po BID for fibromyalgia GABAPENTIN 59909417932 Active Carlton Hu MD Active LYRICA 100 MG ORAL CAPSULE Take 1 tab po BID for fibromyalgia 20 11/08/21 PREGABALIN 55103296778 No Longer Active Elise Garcia APRN A ctive PREDNISONE 20 MG ORAL TABLET 2 tabs daily for 3 days, 1 tab daily for 3 days, 1/2 tab daily for 2 days PREDNISONE 95641836496 No Longer Active Venullina Cesarl DIRECTOR OF PHYSICAL THERAPY Active TUSSIONEX PENNKINETIC ER 10-8 MG/5ML ORAL SUSPENSION E XTENDED RELEASE 5 mL PO q 12 hrs PRN cough HYDROCOD POLST-CHLORPHEN POLST 901965 60406 No Longer Active Jillina Frazell DIRECTOR OF PHYSICAL THERAPY Active FLUTICASONE PROPIONATE 50 MCG/ACT NASAL SUSPENSION 2 s prays each nostril daily until bottle is empty FLUTICASONE PROPIONATE 729171229 99 No Longer Active Jillina Frazell DIRECTOR OF PHYSICAL THERAPY Active ASMANEX 60 METERED DOSES 220 MCG/INH INHALATION AEROSO L POWDER BREATH ACTIVATED 1 puff bid with rinse after MOMETASONE FUROATE 6304022 4102 No Longer Active Venullina Cesarl DIRECTOR OF PHYSICAL THERAPY Active ZITHROMAX Z-REYNA 250 MG ORAL TABLET 2 today, then 1 daily for 4 d ays AZITHROMYCIN 93363134628 No Longer Active Elise Garcia APRN Active TUSSIONEX PENNKINETIC ER 10-8 MG/5ML ORAL SUSPENSION E XTENDED RELEASE 5ml po q12hr PRN Cough HYDROCOD POLST-CHLORPHEN POLST 5 2854747303 No Longer Active Elise Garcia APRN Active PREDNISONE 20 MG ORAL TABLET 2 tabs daily for 3 days, 1 tab daily for 3 days, 1/2 tab daily for 2 days PREDNISONE 00411075492 No Longer Active Jillina Daphnezell DIRECTOR OF PHYSICAL THERAPY Active AMOXICILLIN 500 MG ORAL CAPSULE 2 po BID x 10 days 201 09/29/08 AMOXICILLIN 70601881391 No Longer Active Jillina Frazell DIRECTOR OF PHYSICAL THERAPY Act nael SINGULAIR 10 MG ORAL TABLET 1 po qday for allergies 20 14/01/12 MONTELUKAST SODIUM 93704424726 No Longer Active Carlton Hu MD Active LEVAQUIN 500 MG ORAL TABLET 1 tablet by mouth daily 20 13/09/24 LEVOFLOXACIN 66197334509 No Longer Active Carlton Hu MD Acti ve FLUTICASONE PROPIONATE 50 MCG/ACT NASAL SUSPENSION 2 s prays each nostril daily for 2 weeks, then 1 spray each nostril daily. FLUTICASONE PROPIONATE 02796192920 Active Elisedeirdre Garcia APRN Active ZITHROMAX 250 MG ORAL TABLET 2 po today, then 1 po q days 2-5 20 13/08/10 AZITHROMYCIN 48686092362 No Longer Active Elise Garcia APRN Active XANAX 0.5 MG ORAL TABLET one tablet by mouth daily prn anxiety 2015 ALPRAZOLAM 81798712807 Active ALFREDO Holly Active CYMBALTA 30 MG ORAL CAPSULE DELAYED RELEASE PARTICLES 1 cap by mouth daily for depression DULOXETINE HCL 70727404581 Active Carlton beltrán MD Active CEFDINIR 300 MG ORAL CAPSULE 1 po BID x 10 days CEFDINIR 43439603497 No Longer Active Carlton Hu MD Active ZOCOR 40 MG ORAL TABLET 1 tab by mouth daily SI MVASTATIN 67142425956 No Longer Active Carlton Hu MD Active CYCLOBENZAPRINE HCL 10 MG ORAL TABLET 1 tablet by mouth BID prn had pain CYCLOBENZAPRINE HCL 51981697438 No Longer Active Jayden Hu MD Active LEVOFLOXACIN 500 MG ORAL TABLET 1 tab PO daily x 10 days LEVOFLOXACIN 70993541098 No Longer Active Carlton Hu MD Acti ve PREDNISONE 20 MG ORAL TABLET 3 tab PO qd x 2d, 2 tab P O qd x 2d, 1 tab PO qd x 2d, 1/2 tab PO qd x 2d PREDNISONE 96451889074 No Lo nger Active Carlton Hu MD Active FLUTICASONE PROPIONATE 50 MCG/ACT NASAL SUSPENSION 1 t o 2 sprays each nostril daily FLUTICASONE PROPIONATE 79970656049 No Longer Ac tive Blaine HERNANDEZ Active CHERATUSSIN AC 100-10 MG/5ML ORAL SYRUP 1 tsp by mouth every 4 hours as needed for cough GUAIFENESIN-CODEINE 51608156116 No Longe r Active Blaine HERNANDEZ Active PROMETHAZINE-CODEINE 6.25-10 MG/5ML ORAL SYRUP 1 tsp b y mouth every 6 hours if needed for cough PROMETHAZINE-CODEINE 90041411767 No Longer Active Blaine HERNANDEZ Active CHERATUSSIN AC 100-10 MG/5ML ORAL SYRUP 1 tsp by mouth every 4 hours as needed for cough GUAIFENESIN-CODEINE 96403315708 No Longe r Active Blaine HERNANDEZ Active ZITHROMAX Z-REYNA 250 MG ORAL TABLET 2 today, then 1 daily for 4 d ays AZITHROMYCIN 90492256351 No Longer Active Columba Raida Act nael ZITHROMAX 250 MG ORAL TABLET 2 po today, then 1 po q days 2-5 20 14/03/21 AZITHROMYCIN 18619979257 No Longer Active Carlton Hu MD Active ZITHROMAX Z-REYNA 250 MG ORAL TABLET 2 today, then 1 daily for 4 d ays AZITHROMYCIN 27818920935 No Longer Active Columba Raida Act nael AUGMENTIN 875-125 MG ORAL TABLET 1 po BID x 10 days 13/01/20 AMOXICILLIN-POT CLAVULANATE 19892805839 No Longer Active Diya De Guzman APRN Active ZITHROMAX 250 MG ORAL TABLET 2 po today, then 1 po q days 2-5 12/08/14 AZITHROMYCIN 53122598568 No Longer Active Carlton Hu MD Active TRAMADOL HCL 50 MG ORAL TABLET 1 po tid with ES Tylenol TRAMADOL HCL 06019466347 Active ALFREDO Holly Active PREMARIN 0.625 MG ORAL TABLET TAKE 1 TAB BY MOUTH DAILY ESTROGENS CONJUGATED 27126838005 No Longer Active Ridge Bess DO A ctive CYMBALTA 30 MG ORAL CAPSULE DELAYED RELEASE PARTICLES 1 cap by mouth daily DULOXETINE HCL 35090947618 No Longer Active Ridge Ya ee DO Active AMOXICILLIN 500 MG ORAL CAPSULE 1 tab by mouth 3 times daily x 10 days AMOXICILLIN 89523547623 No Longer Active Carlton bustamante MD Active AMOXICILLIN 500 MG ORAL CAPSULE 1 tab by mouth 3 times daily x 10 days AMOXICILLIN 74219394866 No Longer Active Carlton bustamante MD Active PROMETHAZINE-CODEINE 6.25-10 MG/5ML ORAL SYRUP 1 tsp b y mouth every 8 hours prn cough PROMETHAZINE-CODEINE 62307098665 No Longer Acti ve Carlton Hu MD Active MEDROL 4 MG ORAL TABLET THERAPY PACK 6 pills x 1 day, then 5 pills x 1 day then 4 pills x 1 day, then 3 pills x 1 day, then 2 pills x 1 day, then 1 pill x 1 day, then stop METHYLPREDNISOLONE 02890044612 No Long er Active Perez Mora MD Active AZITHROMYCIN 250 MG ORAL TABLET 2 po qd x 1 day, then 1 po q d x 4 days AZITHROMYCIN 61920569413 No Longer Active Perez Ambriz MD Active SYMBICORT 160-4.5 MCG/ACT INHALATION AEROSOL 2 puffs bid wit h rinse after BUDESONIDE-FORMOTEROL FUMARATE 52024164230 N o Longer Active Perez Mora MD Active LYRICA 75 MG ORAL CAPSULE TAKE 1 CAPSULE BY MOUTH TWICE DAILY PREGABALIN 47929276806 No Longer Active Carlton Hu MD Acti ve TOPAMAX 25 MG ORAL TABLET 1 qHS x 1 week, then 1 BID x 1 week, then 1 qAM and 2 qHS x 1 week, then 2 BID (migraine prevention) T OPIRAMATE 02043715804 No Longer Active Jerica FUENTES Active TOPAMAX 50 MG ORAL TABLET take 1 tab po BID for migraines. 07/02 TOPIRAMATE 32453527688 No Longer Active Jerica FUENTES Active TOPAMAX 100 MG ORAL TABLET Take 1 tablet po bid TO PIRAMATE 41366385543 Active Carlton Hu MD Active TRIAMCINOLONE ACETONIDE 0.1 % EXTERNAL CREAM apply three roger es daily prn rash TRIAMCINOLONE ACETONIDE 37634328622 No Longer Active Carlton Hu MD Active PAXIL 40 MG ORAL TABLET take 1 tab po qday for depression 0 PAROXETINE HCL 83388534280 Active ALFREDO Holly Active CHERATUSSIN AC 100-10 MG/5ML ORAL SYRUP 5ml po q6hr PRN Cough 20 13/04/14 GUAIFENESIN-CODEINE 29643825899 No Longer Active Carlton Hu MD Active MEDROL 4 MG ORAL TABLET THERAPY PACK 6 tabs on day 1, 5 tabs on day 2, 4 tabs on day 3, 3 tabs on day 4, 2 tabs on day 5, 1 tab on day 6 2013 METHYLPREDNISOLONE 94827830610 No Longer Active Perez Mora MD Active AZITHROMYCIN 250 MG ORAL TABLET 2 po qd x 1 day, then 1 po q d x 4 days AZITHROMYCIN 63111228508 No Longer Active Perez Ambriz MD Active PROPRANOLOL HCL 60 MG ORAL TABLET 1 PO Q D PROPRANOLOL HCL 02295919446 No Longer Active Perez Mora MD Activ e CHERATUSSIN AC 100-10 MG/5ML ORAL SYRUP take one tsp po Q 6h ours prn cough GUAIFENESIN-CODEINE 43849354870 No Longer Active Zia Mora MD Active AUGMENTIN 875-125 MG ORAL TABLET 1 tab by mouth twice daily with food AMOXICILLIN-POT CLAVULANATE 84950450777 No Longer Act nael Perez Mora MD Active CHERATUSSIN AC 100-10 MG/5ML ORAL SYRUP 1 tsp by mouth every 4 hours as needed for cough GUAIFENESIN-CODEINE 03543652940 No Longe r Active Hugo Restrepo MD Active ACETAMINOPHEN-CODEINE #3 300-30 MG ORAL TABLET 1 PO Q 4-6 HRS MI N PAIN ACETAMINOPHEN-CODEINE 86034578366 No Longer Active Hugo Restrepo MD Active LEVAQUIN 500 MG ORAL TABLET take one po QD LEVO FLOXACIN 70170413527 No Longer Active Griffin HERNANDEZ Active PREDNISONE 20 MG ORAL TABLET Take 3 tabs daily for 3 d ays, 2 tabs daily for 3 days, 1 tab daily for 3 days, 1/2 tab daily for 3 days 11/07 PREDNISONE 76727672650 No Longer Active Carlton Hu MD Acti ve AVELOX 400 MG ORAL TABLET 1 tab by mouth daily MOXIFLOXACIN HCL 61423404245 No Longer Active Carlton Hu MD Active CHERATUSSIN AC 100-10 MG/5ML ORAL SYRUP 1 tsp by mouth every 4 hours as needed for cough GUAIFENESIN-CODEINE 36476172676 No Longe r Active Hugo Restrepo MD Active AVELOX 400 MG ORAL TABLET 1 tab by mouth daily MOXIFLOXACIN HCL 33456469932 No Longer Active Marcy De La Rosa MD PhD Active TERBINAFINE HCL 250 MG ORAL TABLET 1 qDay T ERBINAFINE HCL 05826582090 No Longer Active Marcy De La Rosa MD PhD Active CHERATUSSIN AC 100-10 MG/5ML ORAL SYRUP 1 tsp by mouth every 4 hours as needed for cough GUAIFENESIN-CODEINE 17459804977 No Longe r Active Marcy De La Rosa MD PhD Active AVELOX 400 MG ORAL TABLET 1 tab by mouth daily MOXIFLOXACIN HCL 96131443649 No Longer Active Marcy De La Rosa MD PhD Active HYDROCODONE-ACETAMINOPHEN 5-325 MG ORAL TABLET 1 po q 6hr PRN co ugh HYDROCODONE-ACETAMINOPHEN 54945289049 No Longer Active Marcy De La Rosa MD PhD Active PREDNISONE 20 MG ORAL TABLET 2 tabs daily for 3 days, 1 tab daily for 3 days, 1/2 tab daily for 2 days PREDNISONE 65669702120 No Longer Active Carlton Hu MD Active CEFDINIR 300 MG ORAL CAPSULE by mouth twice a day 2011 CEFDINIR 98847294925 No Longer Active Carlton Hu MD Acti ve HYDROCHLOROTHIAZIDE 25 MG ORAL TABLET 1 TAB PO DAILY HYDROCHLOROTHIAZIDE 16626752652 Active ALFREDO Holly Ac tive ACETAMINOPHEN-CODEINE #3 300-30 MG ORAL TABLET 1 tablet po q 4-6 hrs prn pain ACETAMINOPHEN-CODEINE 47405650127 No Longer Active Ridge Bess DO Active ZITHROMAX 250 MG ORAL TABLET 2 po today, then 1 po q days 2-5 20 03/07/07 AZITHROMYCIN 33252811643 No Longer Active Carlton Hu MD Active CHERATUSSIN AC 100-10 MG/5ML ORAL SYRUP take 1 tsp po q4-6 h ours prn cough GUAIFENESIN-CODEINE 17273489914 No Longer Active Jayden Hu MD Active ACETAMINOPHEN-CODEINE #3 300-30 MG ORAL TABLET 1 PO Q 4-6 HR PRN PAIN ACETAMINOPHEN-CODEINE 13502610378 No Longer Active Arnol Hu MD Active LORTAB 7.5-500 MG/15ML ORAL ELIXIR 7.5 ml po q 4 hour prn cough HYDROCODONE-ACETAMINOPHEN 58673333362 No Longer Active Carlton Hu MD Active PREDNISONE 20 MG ORAL TABLET 1 po bid 3 days, then 1 po q day 3 days PREDNISONE 44638058328 No Longer Active Carlton Hu MD Active CEFDINIR 300 MG ORAL CAPSULE by mouth twice a day 2011 CEFDINIR 54917153480 No Longer Active Carlton Hu MD Acti ve CEFDINIR 300 MG ORAL CAPSULE by mouth twice a day 2010 CEFDINIR 73244524332 No Longer Active Carlton Hu MD Acti ve CEFDINIR 300 MG ORAL CAPSULE by mouth twice a day 2010 CEFDINIR 79759460904 No Longer Active Carlton Hu MD Acti ve TESSALON PERLES 100 MG ORAL CAPSULE 1 tablet by mouth 3 times daily as needed for cough BENZONATATE 70004218044 No Longer Active Carlton Hu MD Active CEFDINIR 300 MG ORAL CAPSULE by mouth twice a day 2010 CEFDINIR 78221869126 No Longer Active Carlton Hu MD Acti ve ZITHROMAX Z-REYNA 250 MG ORAL TABLET 2 today, then 1 daily for 4 d ays AZITHROMYCIN 58368163402 No Longer Active Hugo Restrepo MD Active TESSALON PERLES 100 MG ORAL CAPSULE 1 tablet by mouth 3 times daily as needed for cough TESSALON PERLES 100 MG ORAL CAPSULE 27584 7 BENZONATATE Inactive PREDNISONE 20 MG ORAL TABLET 1 po bid 3 days, then 1 po q day 3 days PREDNISONE 20 MG ORAL TABLET 309367 PREDNISONE [place] ctive LORTAB 7.5-500 MG/15ML ORAL ELIXIR 7.5 [...] cough CHERATUSSIN AC 100-10 MG/5ML ORAL SYRUP 391675 GUAIFENESIN-CODEINE Inactive ACETAMINOPHEN-CODEINE #3 300-30 MG ORAL TABLET 1 tablet po q 4-6 hrs prn pain ACETAMINOPHEN-CODEINE #3 300-30 MG ORAL TABLET ACETAMINOPHEN-CODEINE Inactive HYDROCODONE-ACETAMINOPHEN 5-325 MG ORAL TABLET 1 po q 6hr PRN co ugh HYDROCODONE-ACETAMINOPHEN 5-325 MG ORAL TABLET 455639 HYDROCODONE-ACETAMINOPHEN Inactive AVELOX 400 MG ORAL TABLET 1 tab by mouth daily AVELOX 400 MG ORAL TABLET 344196 MOXIFLOXACIN HCL Inactive CHERATUSSIN AC 100-10 MG/5ML ORAL SYRUP 1 tsp by mouth every 4 hours as needed for cough CHERATUSSIN AC 100-10 MG/5ML ORAL SYRUP 9 31680 GUAIFENESIN-CODEINE Inactive TERBINAFINE HCL 250 MG ORAL TABLET 1 qDay 07/08 TERBINAFINE HCL 250 MG ORAL TABLET 364740 TERBINAFINE HCL Inactive CHERATUSSIN AC 100-10 MG/5ML ORAL SYRUP 1 tsp by mouth every 4 hours as needed for cough CHERATUSSIN AC 100-10 MG/5ML ORAL SYRUP 9 81142 GUAIFENESIN-CODEINE Inactive ACETAMINOPHEN-CODEINE #3 300-30 MG ORAL TABLET 1 PO Q 4-6 HRS MI N PAIN ACETAMINOPHEN-CODEINE #3 300-30 MG ORAL TABLET ACETAMINOPHEN-CODEINE Inactive CHERATUSSIN AC 100-10 MG/5ML ORAL SYRUP 1 tsp by mouth every 4 hours as needed for cough CHERATUSSIN AC 100-10 MG/5ML ORAL SYRUP 9 78261 GUAIFENESIN-CODEINE Inactive AUGMENTIN 875-125 MG ORAL TABLET 1 tab by mouth twice daily with food AUGMENTIN 875-125 MG ORAL TABLET 652029 AMOXICIL MADELINE-POT CLAVULANATE Inactive CHERATUSSIN AC 100-10 MG/5ML ORAL SYRUP take one tsp po Q 6h ours prn cough CHERATUSSIN AC 100-10 MG/5ML ORAL SYRUP 890923 GUAIFENESIN-CODEINE Inactive PROPRANOLOL HCL 60 MG ORAL TABLET 1 PO Q D PROPRANOLOL HCL 60 MG ORAL TABLET 310520 PROPRANOLOL HCL Inactive TOPAMAX 50 MG ORAL TABLET take 1 tab po BID for migraines. 07/02 TOPAMAX 50 MG ORAL TABLET 638083 TOPIRAMATE Inacti ve TOPAMAX 25 MG ORAL TABLET 1 qHS x 1 week, then 1 BID x 1 week, then 1 qAM and 2 qHS x 1 week, then 2 BID (migraine prevention) TOPAMAX 25 MG ORAL TABLET 615166 TOPIRAMATE Inactive LYRICA 75 MG ORAL CAPSULE TAKE 1 CAPSULE BY MOUTH TWICE DAILY LYRICA 75 MG ORAL CAPSULE PREGABALIN Inactive SYMBICORT 160-4.5 MCG/ACT INHALATION AEROSOL 2 puffs bid wit h rinse after SYMBICORT 160-4.5 MCG/ACT INHALATION AEROSOL BUDESONIDE- FORMOTEROL FUMARATE Inactive PROMETHAZINE-CODEINE 6.25-10 MG/5ML ORAL SYRUP 1 tsp b y mouth every 8 hours prn cough PROMETHAZINE-CODEINE 6.25-10 MG/ 5ML ORAL SYRUP 893962 PROMETHAZINE-CODEINE Inactive CYMBALTA 30 MG ORAL CAPSULE DELAYED RELEASE PARTICLES 1 cap by mouth daily CYMBALTA 30 MG ORAL CAPSULE DELAYED RELE ASE PARTICLES 318670 DULOXETINE HCL Inactive PREMARIN 0.625 MG ORAL TABLET TAKE 1 TAB BY MOUTH DAILY PREMARIN 0.625 MG ORAL TABLET ESTROGENS CONJUGATED Inactive CHERATUSSIN AC 100-10 MG/5ML ORAL SYRUP 1 tsp by mouth every 4 hours as needed for cough CHERATUSSIN AC 100-10 MG/5ML ORAL SYRUP 9 65974 GUAIFENESIN-CODEINE Inactive PROMETHAZINE-CODEINE 6.25-10 MG/5ML ORAL SYRUP 1 tsp b y mouth every 6 hours if needed for cough PROMETHAZINE-CODEINE 6.25-10 MG/5ML ORAL SYRUP 574077 PROMETHAZINE-CODEINE Inactive CHERATUSSIN AC 100-10 MG/5ML ORAL SYRUP 1 tsp by mouth every 4 hours as needed for cough CHERATUSSIN AC 100-10 MG/5ML ORAL SYRUP 9 35108 GUAIFENESIN-CODEINE Inactive FLUTICASONE PROPIONATE 50 MCG/ACT NASAL SUSPENSION 1 t o 2 sprays each nostril daily FLUTICASONE PROPIONATE 50 MCG/AC T NASAL SUSPENSION 5221826 FLUTICASONE PROPIONATE Inactive PREDNISONE 20 MG ORAL TABLET 3 tab PO qd x 2d, 2 tab P O qd x 2d, 1 tab PO qd x 2d, 1/2 tab PO qd x 2d PREDNISONE 20 MG ORAL TAB LET 371338 PREDNISONE Inactive LEVOFLOXACIN 500 MG ORAL TABLET 1 tab PO daily x 10 days LEVOFLOXACIN 500 MG ORAL TABLET 005788 LEVOFLOXACIN Inactive CYCLOBENZAPRINE HCL 10 MG ORAL TABLET 1 tablet by mouth BID prn had pain CYCLOBENZAPRINE HCL 10 MG ORAL TABLET 597775 CYCLOBENZAPRINE HCL Inactive ZOCOR 40 MG ORAL TABLET 1 tab by mouth daily 4 ZOCOR 40 MG ORAL TABLET 202206 SIMVASTATIN Inactive TUSSIONEX PENNKINETIC ER 10-8 MG/5ML [...] FLUTICASONE PROPIO EFE 50 MCG/ACT NASAL SUSPENSION 5536963 FLUTICASONE PROPIONATE Inactive TUSSIONEX PENNKINETIC ER 10-8 [...] three days PREDNISONE 20 MG ORAL TABLET 246701 PREDNIS ONE Inactive PROAIR HFA 108 (90 BASE) MCG/ACT INHALATION AEROSOL SO LUTION 2 puffs four times a day as needed PROAIR HFA 108 (90 B ASE) MCG/ACT INHALATION AEROSOL SOLUTION ALBUTEROL SULFATE Inactive ZITHROMAX Z-REYNA 250 MG ORAL TABLET 2 today, then 1 daily for 4 d ays ZITHROMAX Z-REYNA 250 MG ORAL TABLET 637330 AZITHROMYCIN Inactive CEFDINIR 300 MG ORAL CAPSULE by mouth twice a day 2010 CEFDINIR 300 MG ORAL CAPSULE 322794 CEFDINIR Inactive CEFDINIR 300 MG ORAL CAPSULE by mouth twice a day 2010 CEFDINIR 300 MG ORAL CAPSULE 643602 CEFDINIR Inactive CEFDINIR 300 MG ORAL CAPSULE by mouth twice a day 2010 CEFDINIR 300 MG ORAL CAPSULE 246651 CEFDINIR Inactive CEFDINIR 300 MG ORAL CAPSULE by mouth twice a day 2011 CEFDINIR 300 MG ORAL CAPSULE 522546 CEFDINIR Inactive ZITHROMAX 250 MG ORAL TABLET 2 po today, then 1 po q days 2-5 20 03/07/07 ZITHROMAX 250 MG ORAL TABLET 468620 AZITHROMYCIN [place] ctive CEFDINIR 300 MG ORAL CAPSULE by mouth twice a day 2011 CEFDINIR 300 MG ORAL CAPSULE 499112 CEFDINIR Inactive PREDNISONE 20 MG ORAL TABLET 2 tabs daily for 3 days, 1 tab daily for 3 days, 1/2 tab daily for 2 days PREDNISONE 20 MG ORAL T ABLET 262680 PREDNISONE Inactive AVELOX 400 MG ORAL TABLET 1 tab by mouth daily AVELOX 400 MG ORAL TABLET 217109 MOXIFLOXACIN HCL Inactive AVELOX 400 MG ORAL TABLET 1 tab by mouth daily AVELOX 400 MG ORAL TABLET 537481 MOXIFLOXACIN HCL Inactive PREDNISONE 20 MG ORAL TABLET Take 3 tabs daily for 3 d ays, 2 tabs daily for 3 days, 1 tab daily for 3 days, 1/2 tab daily for 3 days 11/07 PREDNISONE 20 MG ORAL TABLET 184648 PREDNISONE Inactive LEVAQUIN 500 MG ORAL TABLET take one po QD LEVAQUIN 500 MG ORAL TABLET 789323 LEVOFLOXACIN Inactive AZITHROMYCIN 250 MG ORAL TABLET 2 po qd x 1 day, then 1 po q d x 4 days AZITHROMYCIN 250 MG ORAL TABLET 753582 AZITHROMY GIOVANNI Inactive MEDROL 4 MG ORAL TABLET THERAPY PACK 6 tabs on day 1, 5 tabs on day 2, 4 tabs on day 3, 3 tabs on day 4, 2 tabs on day 5, 1 tab on day 6 2013 MEDROL 4 MG ORAL TABLET THERAPY PACK 069001 METHYLPREDNISOLONE [place] ctive CHERATUSSIN AC 100-10 MG/5ML ORAL SYRUP 5ml po q6hr PRN Cough 20 13/04/14 CHERATUSSIN AC 100-10 MG/5ML ORAL SYRUP 394129 GUAIFENE SIN-CODEINE Inactive TRIAMCINOLONE ACETONIDE 0.1 % EXTERNAL CREAM apply three roger es daily prn rash TRIAMCINOLONE ACETONIDE 0.1 % EXTERNAL CREAM 101 4314 TRIAMCINOLONE ACETONIDE Inactive AZITHROMYCIN 250 MG ORAL TABLET 2 po qd x 1 day, then 1 po q d x 4 days AZITHROMYCIN 250 MG ORAL TABLET 908361 AZITHROMY GIOVANNI Inactive MEDROL 4 MG ORAL TABLET THERAPY PACK 6 pills x 1 day, then 5 pills x 1 day then 4 pills x 1 day, then 3 pills x 1 day, then 2 pills x 1 day, then 1 pill x 1 day, then stop MEDROL 4 MG ORAL TABLET THERAPY PACK 485602 METHYLPREDNISOLONE Inactive AMOXICILLIN 500 MG ORAL CAPSULE 1 tab by mouth 3 times daily x 10 days AMOXICILLIN 500 MG ORAL CAPSULE 766308 AMOXICILL IN Inactive AMOXICILLIN 500 MG ORAL CAPSULE 1 tab by mouth 3 times daily x 10 days AMOXICILLIN 500 MG ORAL CAPSULE 468267 AMOXICILL IN Inactive ZITHROMAX 250 MG ORAL TABLET 2 po today, then 1 po q days 2-5 20 12/08/14 ZITHROMAX 250 MG ORAL TABLET 155991 AZITHROMYCIN [place] ctive AUGMENTIN 875-125 MG ORAL TABLET 1 po BID x 10 days 20 13/01/20 AUGMENTIN 875-125 MG ORAL TABLET 980594 AMOXICILLIN-POT CLAVULANATE Inactive ZITHROMAX Z-REYNA 250 MG ORAL TABLET 2 today, then 1 daily for 4 d ays ZITHROMAX Z-REYNA 250 MG ORAL TABLET 878797 AZITHROMYCIN Inactive ZITHROMAX 250 MG ORAL TABLET 2 po today, then 1 po q days 2-5 20 14/03/21 ZITHROMAX 250 MG ORAL TABLET 923050 AZITHROMYCIN [place] ctive ZITHROMAX Z-REYNA 250 MG ORAL TABLET 2 today, then 1 daily for 4 d ays ZITHROMAX Z-REYNA 250 MG ORAL TABLET 699525 AZITHROMYCIN Inactive CEFDINIR 300 MG ORAL CAPSULE 1 po BID x 10 days 06/21 CEFDINIR 300 MG ORAL CAPSULE 445087 CEFDINIR Inactive ZITHROMAX 250 MG ORAL TABLET 2 po today, then 1 po q days 2-5 20 13/08/10 ZITHROMAX 250 MG ORAL TABLET 714190 AZITHROMYCIN [place] ctive LEVAQUIN 500 MG ORAL TABLET 1 tablet by mouth daily 20 13/09/24 LEVAQUIN 500 MG ORAL TABLET 864055 LEVOFLOXACIN Inactive SINGULAIR 10 MG ORAL TABLET 1 po qday for allergies 20 14/01/12 SINGULAIR 10 MG ORAL TABLET 380129 MONTELUKAST SODIUM Inactive AMOXICILLIN 500 MG ORAL CAPSULE 2 po BID x 10 days 201 09/29/08 AMOXICILLIN 500 MG ORAL CAPSULE 443607 AMOXICILLIN Inactive PREDNISONE 20 MG ORAL TABLET 2 tabs daily for 3 days, 1 tab daily for 3 days, 1/2 tab daily for 2 days PREDNISONE 20 MG ORAL T ABLET 530121 PREDNISONE Inactive ZITHROMAX Z-REYNA 250 MG ORAL TABLET 2 today, then 1 daily for 4 d ays ZITHROMAX Z-REYNA 250 MG ORAL TABLET 085109 AZITHROMYCIN Inactive PREDNISONE 20 MG ORAL TABLET 2 tabs daily for 3 days, 1 tab daily for 3 days, 1/2 tab daily for 2 days PREDNISONE 20 MG ORAL T ABLET 850539 PREDNISONE Inactive ZITHROMAX 250 MG ORAL TABLET 2 po today, then 1 po q days 2-5 20 14/09/04 ZITHROMAX 250 MG ORAL TABLET 831026 AZITHROMYCIN Greer ctive AMOXICILLIN 500 MG ORAL CAPSULE 1 cap by mouth three times a day AMOXICILLIN 500 MG ORAL CAPSULE [id number] AMOXICILLIN Inactive TERBINAFINE HCL 250 MG ORAL TABLET 1 qDay for nail fungus 7 TERBINAFINE HCL 250 MG ORAL TABLET 081083 TERBINAFINE HCL Inact nael AUGMENTIN 875-125 MG ORAL TABLET 1 po BID x 10 days 16/03/22 AUGMENTIN 875-125 MG ORAL TABLET 093114 AMOXICILLIN-POT CLAVULANATE Inactive PREDNISONE 20 MG ORAL TABLET 2 po qd x 5 days PREDNISONE 20 MG ORAL TABLET 793214 PREDNISONE Inactive AZITHROMYCIN 250 MG ORAL TABLET 2 po qd x 1 day, then 1 po q d x 4 days AZITHROMYCIN 250 MG ORAL TABLET 616668 AZITHROMY GIOVANNI Inactive Vital Signs Date Name [...] - Chem istry sodium, serum 139 mmol/L 179-440 7213/03/19 potassium, serum 3.6 mmol/L 3.5-5.2 chloride, serum 100 mmol/L 98-107 carbon dioxide, venous blood 30.3 mmol/L 21.0-32 .0 blood glucose 101 mg/dL 65-110 calcium, serum 9.4 mg/dL 8.5-10.1 urea nitrogen, blood 10 mg/dL 7-18 creatinine, serum 0.96 mg/dL 0.60-1.30 Encounters Code Encounter Date Provider Facility [id number] Vst-Est Level III 11:12:16 CDT Yanet Bess DO [facility] CPT-46161 Level 3 Est. Patient 11:34:49 HAND CANDY DIPPER Perez Mora MD [facility] CPT-90775 Level 4 Est. Patient 09:51:32 HAND CANDY DIPPER Carlton rich MD [facility] CPT-99214 Level 3 Est. Patient 10:26:00 HAND CANDY DIPPER Elise Are [facility] CPT-21075 Level 3 Est. Patient 13:35:41 HAND CANDY DIPPER Carlton rich MD [facility]-20230 Level 3 Est. Patient 10:03:52 HAND CANDY DIPPER Carlton rich MD [facility]-56853 Level 3 Est. Patient 12:17:50 CDT Hugo Restrepo MD [facility] CPT-71750 Level 3 Est. Patient 13:42:38 CDT Elise Are [facility] CPT-05606 Level 3 Est. Patient 13:23:51 CDT Diya cobian [facility]-00695 Level 3 Est. Patient 14:22:19 HAND CANDY DIPPER Diya cobian [facility] CPT-37119 Level 3 Est. Patient 10:11:46 CDT Carlton rich MD [facility]-46031 Level 3 Est. Patient 17:29:43 CDT Elise Are [facility] CPT-54382 Level 3 Est. Patient 11:58:06 CDT Elise Are [facility] CPT-78885 Level 4 Est. Patient 14:36:51 CDT Carlton rich MD [facility] CPT-75825 Level 3 Est. Patient 18:16:00 HAND CANDY DIPPER Blaine W Cloven [facility] CPT-82970 Level 3 Est. Patient 09:45:49 HAND CANDY DIPPER Carlton rich MD [facility] CPT-94347 Level 3 Est. Patient 13:19:20 CDT Carlton rich MD [facility] CPT-25954 Level 3 Est. Patient 13:06:43 CDT Ridge tam DO [facility] CPT-00787 Level 3 Est. Patient 10:03:07 CDT Perez Mora MD [facility] CPT-93722 Level 3 Est. Patient 19:50:35 HAND CANDY DIPPER Carlton rich MD [facility] CPT-02037 Level 4 Est. Patient 18:05:01 HAND CANDY DIPPER Carlton rich MD [facility] CPT-98802 Level 3 Est. Patient 10:45:55 HAND CANDY DIPPER Hugo Restrepo MD [facility] CPT-77749 Level 3 Est. Patient 14:12:49 CDT Griffin lincoln [facility] CPT-52276 Level 3 Est. Patient 17:37:24 CDT Carlton rich MD [facility] CPT-38920 Level 3 Est. Patient 16:51:54 CDT Carlton rich MD [facility] CPT-07444 Level 3 Est. Patient 12:18:11 CDT Hugo Restrepo MD [facility] CPT-34999 Level 3 Est. Patient 11:30:25 CDT Marcy crisostomo MD PhD [facility]-87007 Level 3 Est. Patient 12:00:47 HAND CANDY DIPPER Carlton rich MD [facility] CPT-96385 Level 3 Est. Patient 16:31:06 HAND CANDY DIPPER Carlton rich MD [facility] CPT-31753 Level 3 Est. Patient 16:23:24 HAND CANDY DIPPER Ridge tam [facility] CPT-67509 Level 3 Est. Patient 12:34:12 CDT Carlton rich MD [facility] CPT-99985 Level 2 Est. Patient 15:43:33 CDT Robi armstrong MD [facility] CPT-47794 Level 4 Est. Patient 14:04:44 CDT Carlton rich MD [facility] CPT-62176 Level 3 Est. Patient 05:47:59 CDT Ridge tam [facility] CPT-11348 Level 3 Est. Patient 13:12:53 HAND CANDY DIPPER Carlton rich MD [facility] CPT-30262 Level 3 Est. Patient 14:26:53 CDT Hugo [...] CPT-J1100 Decadron 6mg (Dexamethasone) 14:32:13 CDT 2 CPT-95240 Hip bilat min 2V w AP pelvis 13:16:20 CDT 2 CPT-11204 Pelvis only 13:07:33 CDT CPT-88277 Spec Collection and Handling Fee 11:25:12 C DT CPT-10692 Fluzone Quadrivalent Intramuscular Suspe nsion 0.5 ML 14:31:55 CDT CPT-40644 Abx/Therapy Injection 13:28:47 HAND CANDY DIPPER CPT-J2930 Solu Medrol 125 mg (Methyl Prednisolone Sodium Succinate) 12:00:47 HAND CANDY DIPPER CPT-84617 Venipuncture Draw Fee 11:33:31 CDT CPT-15556 EKG Trac and Interp 11:21:09 CDT CPT-47140 Chest 2V Frontal and Lat 11:21:09 CDT 12/15 CPT-74307 Venipuncture Draw Fee 08:02:34 CDT CPT-98684 Chest 2V Frontal and Lat 05:47:59 CDT 06/05
--- OUTSIDE RECORDS SUMMARY | 2019-10-08 09:32 | XMS REPORT | Clinical Summary ---
[...] URI 465.9 Inactive Ridge Bess DO [place] upper respiratory infections of unspecified site Body [...] po q d x 4 days AZITHROMYCIN [id number] No Longer Active Ridge Bess DO Active PREDNISONE 20 MG ORAL TABLET two tabs by mouth today, then one tab by mouth days two and three and four PREDNISONE 15810086702 Active Arash Bess DO Active PREDNISONE 20 MG ORAL TABLET 2 po qd x 5 days P REDNISONE 92964940608 No Longer Active Perez Mora MD Active PROAIR HFA 108 (90 BASE) MCG/ACT INHALATION AEROSOL SO LUTION 2 puffs four times a day as needed ALBUTEROL SULFATE 33678954139 No Long er Active Becky AGUILAR Active ASPIRIN 81 MG ORAL TABLET 1 po qd ASPIRIN 74551969942 Active Carlton Hu MD Active PREDNISONE 20 MG ORAL TABLET 1 tab twice daily for 3 d ay, then one daily for three days PREDNISONE 52289052886 No Longer Active Carlton Hu MD Active AUGMENTIN 875-125 MG ORAL TABLET 1 po BID x 10 days 20 16/03/22 AMOXICILLIN-POT CLAVULANATE 39449626320 No Longer Active Elise Garcia APRN Active TERBINAFINE HCL 250 MG ORAL TABLET 1 qDay for nail fungus 7 TERBINAFINE HCL 50514920790 No Longer Active Carlton Hu MD A ctive TUSSIONEX PENNKINETIC ER 10-8 MG/5ML ORAL SUSPENSION E XTENDED RELEASE 5ml po q12hr PRN Cough HYDROCOD POLST-CHLORPHEN POLST 46771501238 Active Carlton Hu MD Active AMOXICILLIN 500 MG ORAL CAPSULE 1 cap by mouth three times a day AMOXICILLIN 25625276175 No Longer Active Carlton Hu MD Active ELMIRON 100 MG ORAL CAPSULE 2 tablets in the am and 1 tablet at hs PENTOSAN POLYSULFATE SODIUM 04813614962 No Longer Active Robert Hu MD Active MUCINEX D 60-600 MG ORAL TABLET EXTENDED RELEASE 12 HOUR 1 t ab po q am PSEUDOEPHEDRINE-GUAIFENESIN 31748287200 No Longer Act nael Carlton Hu MD Active MUCINEX DM MAXIMUM STRENGTH 60-1200 MG ORAL TABLET EXT ENDED RELEASE 12 HOUR 1 tab po q am DEXTROMETHORPHAN-GUAIFENESIN 59887266710 No Longer Active Carlton Hu MD Active TUSSIONEX PENNKINETIC ER 10-8 MG/5ML ORAL SUSPENSION E XTENDED RELEASE 5ml po q12hr PRN Cough HYDROCOD POLST-CHLORPHEN POLST 5 5286999288 No Longer Active Carlton Hu MD Active POTASSIUM CHLORIDE ER 20 MEQ ORAL TABLET EXTENDED RELE ASE Take 1 by mouth 4 times daily for 7 days POTASSIUM CHLORIDE 45692697664 No Longer Active Carlton Hu MD Active ZITHROMAX 250 MG ORAL TABLET 2 po today, then 1 po q days 2-5 14/09/04 AZITHROMYCIN 89095332474 No Longer Active Elise Garcia APRN Active TUSSIONEX PENNKINETIC ER 10-8 MG/5ML ORAL SUSPENSION E XTENDED RELEASE 5 ml twice a day as needed for cough HYDROCOD POLST-CHLORPH EN POLST 28715949467 No Longer Active Elise Garcia APRN Active MONTELUKAST SODIUM 10 MG ORAL TABLET 1 po daily for Allergy MONTELUKAST SODIUM 85733283265 Active Carlton Hu MD Ac tive TUSSIONEX PENNKINETIC ER 10-8 MG/5ML ORAL SUSPENSION E XTENDED RELEASE 5ml po q12hr PRN Cough HYDROCOD POLST-CHLORPHEN POLST 5 5208378943 No Longer Active Hugo Restrepo MD Active GABAPENTIN 100 MG ORAL CAPSULE 1 po BID for fibromyalgia GABAPENTIN 54615101027 Active Carlton Hu MD Active LYRICA 100 MG ORAL CAPSULE Take 1 tab po BID for fibromyalgia 20 11/08/21 PREGABALIN 25816603076 No Longer Active Elise Garcia APRN A ctive PREDNISONE 20 MG ORAL TABLET 2 tabs daily for 3 days, 1 tab daily for 3 days, 1/2 tab daily for 2 days PREDNISONE 85390897480 No Longer Active Venullina Cesarl [employer] SUPER[employer] Active TUSSIONEX PENNKINETIC ER 10-8 MG/5ML ORAL SUSPENSION E XTENDED RELEASE 5 mL PO q 12 hrs PRN cough HYDROCOD POLST-CHLORPHEN POLST 398452 80256 No Longer Active Jillina Frazell [employer] SUPERVISOR Active FLUTICASONE PROPIONATE 50 MCG/ACT NASAL SUSPENSION 2 s prays each nostril daily until bottle is empty FLUTICASONE PROPIONATE 585760173 99 No Longer Active Jillina Frazell [employer] SUPERVISOR Active ASMANEX 60 METERED DOSES 220 MCG/INH INHALATION AEROSO L POWDER BREATH ACTIVATED 1 puff bid with rinse after MOMETASONE FUROATE 1834769 4102 No Longer Active Venullina Cesarl [employer] SUPERVISOR Active ZITHROMAX Z-REYNA 250 MG ORAL TABLET 2 today, then 1 daily for 4 d ays AZITHROMYCIN 82403788988 No Longer Active Elise Garcia [employer]IPPING [employer] SUPERVISOR Active TUSSIONEX PENNKINETIC ER 10-8 MG/5ML ORAL SUSPENSION E XTENDED RELEASE 5ml po q12hr PRN Cough HYDROCOD POLST-CHLORPHEN POLST 5 0375738087 No Longer Active Elise Garcia [employer] SUPERVISOR Active PREDNISONE 20 MG ORAL TABLET 2 tabs daily for 3 days, 1 tab daily for 3 days, 1/2 tab daily for 2 days PREDNISONE 81260434663 No Longer Active Jillina Frazell [employer] SUPERVISOR Active AMOXICILLIN 500 MG ORAL CAPSULE 2 po BID x 10 days 201 09/29/08 AMOXICILLIN 01789015429 No Longer Active Jillina Frazell [employer] SUPERVISOR Act nael SINGULAIR 10 MG ORAL TABLET 1 po qday for allergies 20 14/01/12 MONTELUKAST SODIUM 42057249921 No Longer Active Carlton Hu MD Active LEVAQUIN 500 MG ORAL TABLET 1 tablet by mouth daily 20 13/09/24 LEVOFLOXACIN 73837217210 No Longer Active Carlton Hu MD Acti ve FLUTICASONE PROPIONATE 50 MCG/ACT NASAL SUSPENSION 2 s prays each nostril daily for 2 weeks, then 1 spray each nostril daily. FLUTICASONE PROPIONATE 22557079122 Active Elisedeirdre Garcia APRN Active ZITHROMAX 250 MG ORAL TABLET 2 po today, then 1 po q days 2-5 20 13/08/10 AZITHROMYCIN 88303278236 No Longer Active Elise Garcia APRN Active XANAX 0.5 MG ORAL TABLET one tablet by mouth daily prn anxiety 2015 ALPRAZOLAM 59794703838 Active ALFREDO Holly Active CYMBALTA 30 MG ORAL CAPSULE DELAYED RELEASE PARTICLES 1 cap by mouth daily for depression DULOXETINE HCL 99554867320 Active Carlton beltrán MD Active CEFDINIR 300 MG ORAL CAPSULE 1 po BID x 10 days CEFDINIR 94582125534 No Longer Active Carlton Hu MD Active ZOCOR 40 MG ORAL TABLET 1 tab by mouth daily SI MVASTATIN 81543466489 No Longer Active Carlton Hu MD Active CYCLOBENZAPRINE HCL 10 MG ORAL TABLET 1 tablet by mouth BID prn had pain CYCLOBENZAPRINE HCL 80953024348 No Longer Active Jayden Hu MD Active LEVOFLOXACIN 500 MG ORAL TABLET 1 tab PO daily x 10 days LEVOFLOXACIN 43246320074 No Longer Active Carlton Hu MD Acti ve PREDNISONE 20 MG ORAL TABLET 3 tab PO qd x 2d, 2 tab P O qd x 2d, 1 tab PO qd x 2d, 1/2 tab PO qd x 2d PREDNISONE 34902369650 No Lo nger Active Carlton Hu MD Active FLUTICASONE PROPIONATE 50 MCG/ACT NASAL SUSPENSION 1 t o 2 sprays each nostril daily FLUTICASONE PROPIONATE 68275631582 No Longer Ac tive Blaine HERNANDEZ Active CHERATUSSIN AC 100-10 MG/5ML ORAL SYRUP 1 tsp by mouth every 4 hours as needed for cough GUAIFENESIN-CODEINE 54566029852 No Longe r Active Blaine HERNANDEZ Active PROMETHAZINE-CODEINE 6.25-10 MG/5ML ORAL SYRUP 1 tsp b y mouth every 6 hours if needed for cough PROMETHAZINE-CODEINE 99416693179 No Longer Active Blaine HERNANDEZ Active CHERATUSSIN AC 100-10 MG/5ML ORAL SYRUP 1 tsp by mouth every 4 hours as needed for cough GUAIFENESIN-CODEINE 72147590494 No Longe r Active Blaine HERNANDEZ Active ZITHROMAX Z-REYNA 250 MG ORAL TABLET 2 today, then 1 daily for 4 d ays AZITHROMYCIN 50929327884 No Longer Active Columba Raida Act nael ZITHROMAX 250 MG ORAL TABLET 2 po today, then 1 po q days 2-5 20 14/03/21 AZITHROMYCIN 09501085301 No Longer Active Carlton Hu MD Active ZITHROMAX Z-REYNA 250 MG ORAL TABLET 2 today, then 1 daily for 4 d ays AZITHROMYCIN 60947204633 No Longer Active Columba Raida Act nael AUGMENTIN 875-125 MG ORAL TABLET 1 po BID x 10 days 13/01/20 AMOXICILLIN-POT CLAVULANATE 62372369216 No Longer Active Diya De Guzman APRN Active ZITHROMAX 250 MG ORAL TABLET 2 po today, then 1 po q days 2-5 20 12/08/14 AZITHROMYCIN 28614207781 No Longer Active Carlton Hu MD Active TRAMADOL HCL 50 MG ORAL TABLET 1 po tid with ES Tylenol TRAMADOL HCL 84487349032 Active ALFREDO Holly Active PREMARIN 0.625 MG ORAL TABLET TAKE 1 TAB BY MOUTH DAILY ESTROGENS CONJUGATED 55183264390 No Longer Active Ridge Bess DO A ctive CYMBALTA 30 MG ORAL CAPSULE DELAYED RELEASE PARTICLES 1 cap by mouth daily DULOXETINE HCL 53892923154 No Longer Active Ridge Ya ee DO Active AMOXICILLIN 500 MG ORAL CAPSULE 1 tab by mouth 3 times daily x 10 days AMOXICILLIN 04482641783 No Longer Active Carlton bustamante MD Active AMOXICILLIN 500 MG ORAL CAPSULE 1 tab by mouth 3 times daily x 10 days AMOXICILLIN 36755707633 No Longer Active Carlton bustamante MD Active PROMETHAZINE-CODEINE 6.25-10 MG/5ML ORAL SYRUP 1 tsp b y mouth every 8 hours prn cough PROMETHAZINE-CODEINE 34763423505 No Longer Acti ve Carlton Hu MD Active MEDROL 4 MG ORAL TABLET THERAPY PACK 6 pills x 1 day, then 5 pills x 1 day then 4 pills x 1 day, then 3 pills x 1 day, then 2 pills x 1 day, then 1 pill x 1 day, then stop METHYLPREDNISOLONE 91706644227 No Long er Active Perez Mora MD Active AZITHROMYCIN 250 MG ORAL TABLET 2 po qd x 1 day, then 1 po q d x 4 days AZITHROMYCIN 79954179184 No Longer Active Perez Ambriz MD Active SYMBICORT 160-4.5 MCG/ACT INHALATION AEROSOL 2 puffs bid wit h rinse after BUDESONIDE-FORMOTEROL FUMARATE 25953404829 N o Longer Active Perez Mora MD Active LYRICA 75 MG ORAL CAPSULE TAKE 1 CAPSULE BY MOUTH TWICE DAILY PREGABALIN 32357511814 No Longer Active Carlton Hu MD Acti ve TOPAMAX 25 MG ORAL TABLET 1 qHS x 1 week, then 1 BID x 1 week, then 1 qAM and 2 qHS x 1 week, then 2 BID (migraine prevention) T OPIRAMATE 83695008739 No Longer Active Jerica FUENTES Active TOPAMAX 50 MG ORAL TABLET take 1 tab po BID for migraines. 07/02 TOPIRAMATE 47389858965 No Longer Active Jerica FUENTES Active TOPAMAX 100 MG ORAL TABLET Take 1 tablet po bid TO PIRAMATE 65904174744 Active Carlton Hu MD Active TRIAMCINOLONE ACETONIDE 0.1 % EXTERNAL CREAM apply three roger es daily prn rash TRIAMCINOLONE ACETONIDE 60164250332 No Longer Active Carlton Hu MD Active PAXIL 40 MG ORAL TABLET take 1 tab po qday for depression 0 PAROXETINE HCL 40226217927 Active ALFREDO Holly Active CHERATUSSIN AC 100-10 MG/5ML ORAL SYRUP 5ml po q6hr PRN Cough 20 13/04/14 GUAIFENESIN-CODEINE 01981858344 No Longer Active Carlton Hu MD Active MEDROL 4 MG ORAL TABLET THERAPY PACK 6 tabs on day 1, 5 tabs on day 2, 4 tabs on day 3, 3 tabs on day 4, 2 tabs on day 5, 1 tab on day 6 2013 METHYLPREDNISOLONE 44169630348 No Longer Active Perez Mora MD Active AZITHROMYCIN 250 MG ORAL TABLET 2 po qd x 1 day, then 1 po q d x 4 days AZITHROMYCIN 92498441564 No Longer Active Perez Ambriz MD Active PROPRANOLOL HCL 60 MG ORAL TABLET 1 PO Q D PROPRANOLOL HCL 20567141003 No Longer Active Perez Mora MD Activ e CHERATUSSIN AC 100-10 MG/5ML ORAL SYRUP take one tsp po Q 6h ours prn cough GUAIFENESIN-CODEINE 29266733534 No Longer Active Zia Mora MD Active AUGMENTIN 875-125 MG ORAL TABLET 1 tab by mouth twice daily with food AMOXICILLIN-POT CLAVULANATE 15974254124 No Longer Act nael Perez Mora MD Active CHERATUSSIN AC 100-10 MG/5ML ORAL SYRUP 1 tsp by mouth every 4 hours as needed for cough GUAIFENESIN-CODEINE 32062174231 No Longe r Active Hugo Restrepo MD Active ACETAMINOPHEN-CODEINE #3 300-30 MG ORAL TABLET 1 PO Q 4-6 HRS WA N PAIN ACETAMINOPHEN-CODEINE 04365243524 No Longer Active Hugo Restrepo MD Active LEVAQUIN 500 MG ORAL TABLET take one po QD LEVO FLOXACIN 60777180454 No Longer Active Griffin HERNANDEZ Active PREDNISONE 20 MG ORAL TABLET Take 3 tabs daily for 3 d ays, 2 tabs daily for 3 days, 1 tab daily for 3 days, 1/2 tab daily for 3 days 11/07 PREDNISONE 12403164473 No Longer Active Carlton Hu MD Acti ve AVELOX 400 MG ORAL TABLET 1 tab by mouth daily MOXIFLOXACIN HCL 45422649756 No Longer Active Carlton Hu MD Active CHERATUSSIN AC 100-10 MG/5ML ORAL SYRUP 1 tsp by mouth every 4 hours as needed for cough GUAIFENESIN-CODEINE 09746466719 No Longe r Active Hugo Restrepo MD Active AVELOX 400 MG ORAL TABLET 1 tab by mouth daily MOXIFLOXACIN HCL 90067105211 No Longer Active Marcy De La Rosa MD PhD Active TERBINAFINE HCL 250 MG ORAL TABLET 1 qDay T ERBINAFINE HCL 97693936006 No Longer Active Marcy De La Rosa MD PhD Active CHERATUSSIN AC 100-10 MG/5ML ORAL SYRUP 1 tsp by mouth every 4 hours as needed for cough GUAIFENESIN-CODEINE 39807201566 No Longe r Active Marcy De La Rosa MD PhD Active AVELOX 400 MG ORAL TABLET 1 tab by mouth daily MOXIFLOXACIN HCL 96420239055 No Longer Active Marcy De La Rosa MD PhD Active HYDROCODONE-ACETAMINOPHEN 5-325 MG ORAL TABLET 1 po q 6hr PRN co ugh HYDROCODONE-ACETAMINOPHEN 77400708500 No Longer Active Marcy De La Rosa MD PhD Active PREDNISONE 20 MG ORAL TABLET 2 tabs daily for 3 days, 1 tab daily for 3 days, 1/2 tab daily for 2 days PREDNISONE 41799334913 No Longer Active Carlton Hu MD Active CEFDINIR 300 MG ORAL CAPSULE by mouth twice a day 2011 CEFDINIR 33290337443 No Longer Active Carlton Hu MD Acti ve HYDROCHLOROTHIAZIDE 25 MG ORAL TABLET 1 TAB PO DAILY HYDROCHLOROTHIAZIDE 27887802485 Active ALFREDO Holly Ac tive ACETAMINOPHEN-CODEINE #3 300-30 MG ORAL TABLET 1 tablet po q 4-6 hrs prn pain ACETAMINOPHEN-CODEINE 01508323967 No Longer Active Ridge Bess DO Active ZITHROMAX 250 MG ORAL TABLET 2 po today, then 1 po q days 2-5 20 03/07/07 AZITHROMYCIN 47685508513 No Longer Active Carlton Hu MD Active CHERATUSSIN AC 100-10 MG/5ML ORAL SYRUP take 1 tsp po q4-6 h ours prn cough GUAIFENESIN-CODEINE 79760904678 No Longer Active Jayden Hu MD Active ACETAMINOPHEN-CODEINE #3 300-30 MG ORAL TABLET 1 PO Q 4-6 HR PRN PAIN ACETAMINOPHEN-CODEINE 44667628514 No Longer Active Arnol Hu MD Active LORTAB 7.5-500 MG/15ML ORAL ELIXIR 7.5 ml po q 4 hour prn cough HYDROCODONE-ACETAMINOPHEN 08909659015 No Longer Active Carlton Hu MD Active PREDNISONE 20 MG ORAL TABLET 1 po bid 3 days, then 1 po q day 3 days PREDNISONE 35780727096 No Longer Active Carlton Hu MD Active CEFDINIR 300 MG ORAL CAPSULE by mouth twice a day 2011 CEFDINIR 37714838081 No Longer Active Carlton Hu MD Acti ve CEFDINIR 300 MG ORAL CAPSULE by mouth twice a day 2010 CEFDINIR 27027224192 No Longer Active Carlton Hu MD Acti ve CEFDINIR 300 MG ORAL CAPSULE by mouth twice a day 2010 CEFDINIR 12408822458 No Longer Active Carlton Hu MD Acti ve TESSALON PERLES 100 MG ORAL CAPSULE 1 tablet by mouth 3 times daily as needed for cough BENZONATATE 15033182560 No Longer Active Carlton Hu MD Active CEFDINIR 300 MG ORAL CAPSULE by mouth twice a day 2010 CEFDINIR 81766937676 No Longer Active Carlton Hu MD Acti ve ZITHROMAX Z-REYNA 250 MG ORAL TABLET 2 today, then 1 daily for 4 d ays AZITHROMYCIN 39215265191 No Longer Active Hugo Restrepo MD Active TESSALON PERLES 100 MG ORAL CAPSULE 1 tablet by mouth 3 times daily as needed for cough TESSALON PERLES 100 MG ORAL CAPSULE 60182 7 BENZONATATE Inactive PREDNISONE 20 MG ORAL TABLET 1 po bid 3 days, then 1 po q day 3 days PREDNISONE 20 MG ORAL TABLET 683948 PREDNISONE [place] ctive LORTAB 7.5-500 MG/15ML ORAL ELIXIR 7.5 [...] cough CHERATUSSIN AC 100-10 MG/5ML ORAL SYRUP 877990 GUAIFENESIN-CODEINE Inactive ACETAMINOPHEN-CODEINE #3 300-30 MG ORAL TABLET 1 tablet po q 4-6 hrs prn pain ACETAMINOPHEN-CODEINE #3 300-30 MG ORAL TABLET ACETAMINOPHEN-CODEINE Inactive HYDROCODONE-ACETAMINOPHEN 5-325 MG ORAL TABLET 1 po q 6hr PRN co ugh HYDROCODONE-ACETAMINOPHEN 5-325 MG ORAL TABLET 131180 HYDROCODONE-ACETAMINOPHEN Inactive AVELOX 400 MG ORAL TABLET 1 tab by mouth daily AVELOX 400 MG ORAL TABLET 954179 MOXIFLOXACIN HCL Inactive CHERATUSSIN AC 100-10 MG/5ML ORAL SYRUP 1 tsp by mouth every 4 hours as needed for cough CHERATUSSIN AC 100-10 MG/5ML ORAL SYRUP 9 29601 GUAIFENESIN-CODEINE Inactive TERBINAFINE HCL 250 MG ORAL TABLET 1 qDay 07/08 TERBINAFINE HCL 250 MG ORAL TABLET 281297 TERBINAFINE HCL Inactive CHERATUSSIN AC 100-10 MG/5ML ORAL SYRUP 1 tsp by mouth every 4 hours as needed for cough CHERATUSSIN AC 100-10 MG/5ML ORAL SYRUP 9 65280 GUAIFENESIN-CODEINE Inactive ACETAMINOPHEN-CODEINE #3 300-30 MG ORAL TABLET 1 PO Q 4-6 HRS WA N PAIN ACETAMINOPHEN-CODEINE #3 300-30 MG ORAL TABLET ACETAMINOPHEN-CODEINE Inactive CHERATUSSIN AC 100-10 MG/5ML ORAL SYRUP 1 tsp by mouth every 4 hours as needed for cough CHERATUSSIN AC 100-10 MG/5ML ORAL SYRUP 9 26564 GUAIFENESIN-CODEINE Inactive AUGMENTIN 875-125 MG ORAL TABLET 1 tab by mouth twice daily with food AUGMENTIN 875-125 MG ORAL TABLET 546847 AMOXICIL MADELINE-POT CLAVULANATE Inactive CHERATUSSIN AC 100-10 MG/5ML ORAL SYRUP take one tsp po Q 6h ours prn cough CHERATUSSIN AC 100-10 MG/5ML ORAL SYRUP 566810 GUAIFENESIN-CODEINE Inactive PROPRANOLOL HCL 60 MG ORAL TABLET 1 PO Q D PROPRANOLOL HCL 60 MG ORAL TABLET 989716 PROPRANOLOL HCL Inactive TOPAMAX 50 MG ORAL TABLET take 1 tab po BID for migraines. 07/02 TOPAMAX 50 MG ORAL TABLET 002402 TOPIRAMATE Inacti ve TOPAMAX 25 MG ORAL TABLET 1 qHS x 1 week, then 1 BID x 1 week, then 1 qAM and 2 qHS x 1 week, then 2 BID (migraine prevention) TOPAMAX 25 MG ORAL TABLET 261968 TOPIRAMATE Inactive LYRICA 75 MG ORAL CAPSULE TAKE 1 CAPSULE BY MOUTH TWICE DAILY LYRICA 75 MG ORAL CAPSULE PREGABALIN Inactive SYMBICORT 160-4.5 MCG/ACT INHALATION AEROSOL 2 puffs bid wit h rinse after SYMBICORT 160-4.5 MCG/ACT INHALATION AEROSOL BUDESONIDE- FORMOTEROL FUMARATE Inactive PROMETHAZINE-CODEINE 6.25-10 MG/5ML ORAL SYRUP 1 tsp b y mouth every 8 hours prn cough PROMETHAZINE-CODEINE 6.25-10 MG/ 5ML ORAL SYRUP 650574 PROMETHAZINE-CODEINE Inactive CYMBALTA 30 MG ORAL CAPSULE DELAYED RELEASE PARTICLES 1 cap by mouth daily CYMBALTA 30 MG ORAL CAPSULE DELAYED RELE ASE PARTICLES 777079 DULOXETINE HCL Inactive PREMARIN 0.625 MG ORAL TABLET TAKE 1 TAB BY MOUTH DAILY PREMARIN 0.625 MG ORAL TABLET ESTROGENS CONJUGATED Inactive CHERATUSSIN AC 100-10 MG/5ML ORAL SYRUP 1 tsp by mouth every 4 hours as needed for cough CHERATUSSIN AC 100-10 MG/5ML ORAL SYRUP 9 00934 GUAIFENESIN-CODEINE Inactive PROMETHAZINE-CODEINE 6.25-10 MG/5ML ORAL SYRUP 1 tsp b y mouth every 6 hours if needed for cough PROMETHAZINE-CODEINE 6.25-10 MG/5ML ORAL SYRUP 857706 PROMETHAZINE-CODEINE Inactive CHERATUSSIN AC 100-10 MG/5ML ORAL SYRUP 1 tsp by mouth every 4 hours as needed for cough CHERATUSSIN AC 100-10 MG/5ML ORAL SYRUP 9 12170 GUAIFENESIN-CODEINE Inactive FLUTICASONE PROPIONATE 50 MCG/ACT NASAL SUSPENSION 1 t o 2 sprays each nostril daily FLUTICASONE PROPIONATE 50 MCG/AC T NASAL SUSPENSION 7703275 FLUTICASONE PROPIONATE Inactive PREDNISONE 20 MG ORAL TABLET 3 tab PO qd x 2d, 2 tab P O qd x 2d, 1 tab PO qd x 2d, 1/2 tab PO qd x 2d PREDNISONE 20 MG ORAL TAB LET 996475 PREDNISONE Inactive LEVOFLOXACIN 500 MG ORAL TABLET 1 tab PO daily x 10 days LEVOFLOXACIN 500 MG ORAL TABLET 719557 LEVOFLOXACIN Inactive CYCLOBENZAPRINE HCL 10 MG ORAL TABLET 1 tablet by mouth BID prn had pain CYCLOBENZAPRINE HCL 10 MG ORAL TABLET 385254 CYCLOBENZAPRINE HCL Inactive ZOCOR 40 MG ORAL TABLET 1 tab by mouth daily 4 ZOCOR 40 MG ORAL TABLET 812022 SIMVASTATIN Inactive TUSSIONEX PENNKINETIC ER 10-8 MG/5ML [...] FLUTICASONE PROPIO EFE 50 MCG/ACT NASAL SUSPENSION 5502805 FLUTICASONE PROPIONATE Inactive TUSSIONEX PENNKINETIC ER 10-8 [...] three days PREDNISONE 20 MG ORAL TABLET 011300 PREDNIS ONE Inactive PROAIR HFA 108 (90 BASE) MCG/ACT INHALATION AEROSOL SO LUTION 2 puffs four times a day as needed PROAIR HFA 108 (90 B ASE) MCG/ACT INHALATION AEROSOL SOLUTION ALBUTEROL SULFATE Inactive ZITHROMAX Z-REYNA 250 MG ORAL TABLET 2 today, then 1 daily for 4 d ays ZITHROMAX Z-REYNA 250 MG ORAL TABLET 119027 AZITHROMYCIN Inactive CEFDINIR 300 MG ORAL CAPSULE by mouth twice a day 2010 CEFDINIR 300 MG ORAL CAPSULE 987485 CEFDINIR Inactive CEFDINIR 300 MG ORAL CAPSULE by mouth twice a day 2010 CEFDINIR 300 MG ORAL CAPSULE 423280 CEFDINIR Inactive CEFDINIR 300 MG ORAL CAPSULE by mouth twice a day 2010 CEFDINIR 300 MG ORAL CAPSULE 237082 CEFDINIR Inactive CEFDINIR 300 MG ORAL CAPSULE by mouth twice a day 2011 CEFDINIR 300 MG ORAL CAPSULE 709478 CEFDINIR Inactive ZITHROMAX 250 MG ORAL TABLET 2 po today, then 1 po q days 2-5 20 03/07/07 ZITHROMAX 250 MG ORAL TABLET 337431 AZITHROMYCIN [place] ctive CEFDINIR 300 MG ORAL CAPSULE by mouth twice a day 2011 CEFDINIR 300 MG ORAL CAPSULE 767102 CEFDINIR Inactive PREDNISONE 20 MG ORAL TABLET 2 tabs daily for 3 days, 1 tab daily for 3 days, 1/2 tab daily for 2 days PREDNISONE 20 MG ORAL T ABLET 825029 PREDNISONE Inactive AVELOX 400 MG ORAL TABLET 1 tab by mouth daily AVELOX 400 MG ORAL TABLET 695818 MOXIFLOXACIN HCL Inactive AVELOX 400 MG ORAL TABLET 1 tab by mouth daily AVELOX 400 MG ORAL TABLET 513790 MOXIFLOXACIN HCL Inactive PREDNISONE 20 MG ORAL TABLET Take 3 tabs daily for 3 d ays, 2 tabs daily for 3 days, 1 tab daily for 3 days, 1/2 tab daily for 3 days 11/07 PREDNISONE 20 MG ORAL TABLET 443106 PREDNISONE Inactive LEVAQUIN 500 MG ORAL TABLET take one po QD LEVAQUIN 500 MG ORAL TABLET 102423 LEVOFLOXACIN Inactive AZITHROMYCIN 250 MG ORAL TABLET 2 po qd x 1 day, then 1 po q d x 4 days AZITHROMYCIN 250 MG ORAL TABLET 600358 AZITHROMY GIOVANNI Inactive MEDROL 4 MG ORAL TABLET THERAPY PACK 6 tabs on day 1, 5 tabs on day 2, 4 tabs on day 3, 3 tabs on day 4, 2 tabs on day 5, 1 tab on day 6 2013 MEDROL 4 MG ORAL TABLET THERAPY PACK 286642 METHYLPREDNISOLONE [place] ctive CHERATUSSIN AC 100-10 MG/5ML ORAL SYRUP 5ml po q6hr PRN Cough 20 13/04/14 CHERATUSSIN AC 100-10 MG/5ML ORAL SYRUP 874897 GUAIFENE SIN-CODEINE Inactive TRIAMCINOLONE ACETONIDE 0.1 % EXTERNAL CREAM apply three roger es daily prn rash TRIAMCINOLONE ACETONIDE 0.1 % EXTERNAL CREAM 101 4314 TRIAMCINOLONE ACETONIDE Inactive AZITHROMYCIN 250 MG ORAL TABLET 2 po qd x 1 day, then 1 po q d x 4 days AZITHROMYCIN 250 MG ORAL TABLET 037089 AZITHROMY GIOVANNI Inactive MEDROL 4 MG ORAL TABLET THERAPY PACK 6 pills x 1 day, then 5 pills x 1 day then 4 pills x 1 day, then 3 pills x 1 day, then 2 pills x 1 day, then 1 pill x 1 day, then stop MEDROL 4 MG ORAL TABLET THERAPY PACK 209053 METHYLPREDNISOLONE Inactive AMOXICILLIN 500 MG ORAL CAPSULE 1 tab by mouth 3 times daily x 10 days AMOXICILLIN 500 MG ORAL CAPSULE 966932 AMOXICILL IN Inactive AMOXICILLIN 500 MG ORAL CAPSULE 1 tab by mouth 3 times daily x 10 days AMOXICILLIN 500 MG ORAL CAPSULE 442066 AMOXICILL IN Inactive ZITHROMAX 250 MG ORAL TABLET 2 po today, then 1 po q days 2-5 20 12/08/14 ZITHROMAX 250 MG ORAL TABLET 505462 AZITHROMYCIN [place] ctive AUGMENTIN 875-125 MG ORAL TABLET 1 po BID x 10 days 20 13/01/20 AUGMENTIN 875-125 MG ORAL TABLET 298255 AMOXICILLIN-POT CLAVULANATE Inactive ZITHROMAX Z-REYNA 250 MG ORAL TABLET 2 today, then 1 daily for 4 d ays ZITHROMAX Z-REYNA 250 MG ORAL TABLET 076705 AZITHROMYCIN Inactive ZITHROMAX 250 MG ORAL TABLET 2 po today, then 1 po q days 2-5 20 14/03/21 ZITHROMAX 250 MG ORAL TABLET 353532 AZITHROMYCIN [place] ctive ZITHROMAX Z-REYNA 250 MG ORAL TABLET 2 today, then 1 daily for 4 d ays ZITHROMAX Z-REYNA 250 MG ORAL TABLET 735752 AZITHROMYCIN Inactive CEFDINIR 300 MG ORAL CAPSULE 1 po BID x 10 days 2015/06/21 CEFDINIR 300 MG ORAL CAPSULE 374483 CEFDINIR Inactive ZITHROMAX 250 MG ORAL TABLET 2 po today, then 1 po q days 2-5 20 13/08/10 ZITHROMAX 250 MG ORAL TABLET 381762 AZITHROMYCIN [place] ctive LEVAQUIN 500 MG ORAL TABLET 1 tablet by mouth daily 20 13/09/24 LEVAQUIN 500 MG ORAL TABLET 656420 LEVOFLOXACIN Inactive SINGULAIR 10 MG ORAL TABLET 1 po qday for allergies 20 14/01/12 SINGULAIR 10 MG ORAL TABLET 495394 MONTELUKAST SODIUM Inactive AMOXICILLIN 500 MG ORAL CAPSULE 2 po BID x 10 days 201 09/29/08 AMOXICILLIN 500 MG ORAL CAPSULE 646288 AMOXICILLIN Inactive PREDNISONE 20 MG ORAL TABLET 2 tabs daily for 3 days, 1 tab daily for 3 days, 1/2 tab daily for 2 days PREDNISONE 20 MG ORAL T ABLET 988513 PREDNISONE Inactive ZITHROMAX Z-REYNA 250 MG ORAL TABLET 2 today, then 1 daily for 4 d ays ZITHROMAX Z-REYNA 250 MG ORAL TABLET 037300 AZITHROMYCIN Inactive PREDNISONE 20 MG ORAL TABLET 2 tabs daily for 3 days, 1 tab daily for 3 days, 1/2 tab daily for 2 days PREDNISONE 20 MG ORAL T ABLET 747709 PREDNISONE Inactive ZITHROMAX 250 MG ORAL TABLET 2 po today, then 1 po q days 2-5 20 14/09/04 ZITHROMAX 250 MG ORAL TABLET 481171 AZITHROMYCIN [place] [facility] AMOXICILLIN 500 MG ORAL CAPSULE 1 cap by mouth three times a day AMOXICILLIN 500 MG ORAL CAPSULE 491396 AMOXICILLIN Inactive TERBINAFINE HCL 250 MG ORAL TABLET 1 qDay for nail fungus 7 TERBINAFINE HCL 250 MG ORAL TABLET 188859 TERBINAFINE HCL Inact nael AUGMENTIN 875-125 MG ORAL TABLET 1 po BID x 10 days 16/03/22 AUGMENTIN 875-125 MG ORAL TABLET 994566 AMOXICILLIN-POT CLAVULANATE Inactive PREDNISONE 20 MG ORAL TABLET 2 po qd x 5 days PREDNISONE 20 MG ORAL TABLET 562531 PREDNISONE Inactive AZITHROMYCIN 250 MG ORAL TABLET 2 po qd x 1 day, then 1 po q d x 4 days AZITHROMYCIN 250 MG ORAL TABLET 084099 AZITHROMY GIOVANNI Inactive Vital Signs Date Name [...] - Chem istry sodium, serum 139 mmol/L [id number] 3559/03/19 potassium, serum 3.6 mmol/L 3.5-5.2 chloride, serum 100 mmol/L 98-107 carbon dioxide, venous blood 30.3 mmol/L 21.0-32 .0 blood glucose 101 mg/dL 65-110 calcium, serum 9.4 mg/dL 8.5-10.1 urea nitrogen, blood 10 mg/dL 7-18 creatinine, serum 0.96 mg/dL 0.60-1.30 Encounters Code Encounter Date Provider Facility [id number] Vst-Est Level III 11:12:16 CDT Yanet Bess DO [facility] CPT-22108 Level 3 Est. Patient 11:34:49 [employer] OFF[employer] MANAGER Perez Mora MD [facility] CPT-85382 Level 4 Est. Patient 09:51:32 [employer]ERAGE OFFICE MANAGER Carlton rich MD [facility] CPT-78003 Level 3 Est. Patient 10:26:00 BROKERAGE OFFICE MANAGER Elise Are [facility] CPT-21304 Level 3 Est. Patient 13:35:41 BROKERAGE OFFICE MANAGER Carlton rich MD [facility]-93287 Level 3 Est. Patient 10:03:52 BROKERAGE OFFICE MANAGER Carlton rich MD [facility]-09371 Level 3 Est. Patient 12:17:50 CDT Hugo Restrepo MD [facility] CPT-05002 Level 3 Est. Patient 13:42:38 CDT Elise Are [facility] CPT-36808 Level 3 Est. Patient 13:23:51 CDT Diya cobian [facility]-46205 Level 3 Est. Patient 14:22:19 BROKERAGE OFFICE MANAGER Diya cobian [facility] CPT-50978 Level 3 Est. Patient 10:11:46 CDT Carlton rich MD [facility] CPT-52280 Level 3 Est. Patient 17:29:43 CDT Elise Are [facility] CPT-60447 Level 3 Est. Patient 11:58:06 CDT Elise Are [facility] CPT-67218 Level 4 Est. Patient 14:36:51 CDT Carlton rich MD [facility] CPT-54407 Level 3 Est. Patient 18:16:00 BROKERAGE OFFICE MANAGER Blaine W Cloven [facility] CPT-78003 Level 3 Est. Patient 09:45:49 BROKERAGE OFFICE MANAGER Carlton rich MD [facility] CPT-38209 Level 3 Est. Patient 13:19:20 CDT Carlton rich MD [facility] CPT-79905 Level 3 Est. Patient 13:06:43 CDT Ridge tam DO [facility] CPT-91169 Level 3 Est. Patient 10:03:07 CDT Perez Mora MD [facility] CPT-29382 Level 3 Est. Patient 19:50:35 BROKERAGE OFFICE MANAGER Carlton rich MD [facility] CPT-68478 Level 4 Est. Patient 18:05:01 BROKERAGE OFFICE MANAGER Carlton rich MD [facility] CPT-78755 Level 3 Est. Patient 10:45:55 BROKERAGE OFFICE MANAGER Hugo Restrepo MD [facility] CPT-94475 Level 3 Est. Patient 14:12:49 CDT Griffin lincoln [facility] CPT-82828 Level 3 Est. Patient 17:37:24 CDT Carlton rich MD [facility] CPT-31862 Level 3 Est. Patient 16:51:54 CDT Carlton rich MD [facility] CPT-25055 Level 3 Est. Patient 12:18:11 CDT Hugo Restrepo MD [facility] CPT-68908 Level 3 Est. Patient 11:30:25 CDT Marcy crisostomo MD PhD [facility]-05213 Level 3 Est. Patient 12:00:47 BROKERAGE OFFICE MANAGER Carlton rich MD [facility] CPT-85527 Level 3 Est. Patient 16:31:06 BROKERAGE OFFICE MANAGER Carlton rich MD [facility] CPT-23556 Level 3 Est. Patient 16:23:24 BROKERAGE OFFICE MANAGER Ridge tam [facility] CPT-25279 Level 3 Est. Patient 12:34:12 CDT Carlton rich MD [facility] CPT-69540 Level 2 Est. Patient 15:43:33 CDT Robi armstrong MD [facility] CPT-17289 Level 4 Est. Patient 14:04:44 CDT Carlton rich MD [facility] CPT-07627 Level 3 Est. Patient 05:47:59 CDT Ridge tam [facility] CPT-94851 Level 3 Est. Patient 13:12:53 BROKERAGE OFFICE MANAGER Carlton rich MD [facility] CPT-66656 Level 3 Est. Patient 14:26:53 CDT Hugo Restrepo MD [facility] Procedures Code Procedure Name Date Entry Date Standard Desc ription CPT-000 Give Appropriate Flu Vaccine 14:14:31 CDT CPT-J1040 Depo Medrol 80 mg (Methyl Prednisolone A cetate) 10:42:44 CDT CPT-J1100 Decadron 8mg (Dexamethasone) 10:42:44 CDT 2 CPT-J0696 Rocephin 1gm Inj Solr 14:32:13 CDT CPT-J1020 Depo Medrol 60 mg (Methyl Prednisolone A cetate) 14:32:13 CDT CPT-J1100 Decadron 6mg (Dexamethasone) 14:32:13 CDT 2 CPT-70290 Hip bilat min 2V w AP pelvis 13:16:20 CDT 2 CPT-21749 Pelvis only 13:07:33 CDT CPT-18398 Spec Collection and Handling Fee 11:25:12 C DT CPT-53288 Fluzone Quadrivalent Intramuscular Suspe nsion 0.5 ML 14:31:55 CDT CPT-22771 Abx/Therapy Injection 13:28:47 BR[employer]ERAGE OFFICE MANAGER CPT-J2930 Solu Medrol 125 mg (Methyl Prednisolone Sodium Succinate) 12:00:47 BROKERAGE OFFICE MANAGER CPT-51991 Venipuncture Draw Fee 11:33:31 CDT CPT-10880 EKG Trac and Interp 11:21:09 CDT CPT-20837 Chest 2V Frontal and Lat 11:21:09 CDT 12/15 CPT-41536 Venipuncture Draw Fee 08:02:34 CDT CPT-69304 Chest 2V Frontal and Lat 05:47:59 CDT 06/05
--- OUTSIDE RECORDS SUMMARY | 2019-10-08 09:32 | XMS REPORT | Clinical Summary ---
Author Author Caitlin, Juliana Martinez Organization [facility] Address Unknown Phone Unavailable Allergies, [...] and related conditions Headache 784.0 Active Carlton uH MD Headache Preventive health care V70.0 [...] bronchitis URI - acute 465.9 Resolved Hugo Restrpeo MD Acute upper respiratory infections of unspecified [...] po q d x 4 days AZITHROMYCIN 41328816638 No Longer Active Ridge Bess DO Active PREDNISONE 20 MG ORAL TABLET two tabs by mouth today, then one tab by mouth days two and three and four PREDNISONE 37464342750 Active Arash Bess DO Active PREDNISONE 20 MG ORAL TABLET 2 po qd x 5 days P REDNISONE 98650517387 No Longer Active Perez Mora MD Active PROAIR HFA 108 (90 BASE) MCG/ACT INHALATION AEROSOL SO LUTION 2 puffs four times a day as needed ALBUTEROL SULFATE 18675248294 No Long er Active Becky AGUILAR Active ASPIRIN 81 MG ORAL TABLET 1 po qd ASPIRIN 36683367086 Active Carlton Hu MD Active PREDNISONE 20 MG ORAL TABLET 1 tab twice daily for 3 d ay, then one daily for three days PREDNISONE 41544623271 No Longer Active Carlton Hu MD Active AUGMENTIN 875-125 MG ORAL TABLET 1 po BID x 10 days 20 16/03/22 AMOXICILLIN-POT CLAVULANATE 89904569170 No Longer Active Elise Garcia APRN Active TERBINAFINE HCL 250 MG ORAL TABLET 1 qDay for nail fungus 7 TERBINAFINE HCL 73984628095 No Longer Active Carlton Hu MD A ctive TUSSIONEX PENNKINETIC ER 10-8 MG/5ML ORAL SUSPENSION E XTENDED RELEASE 5ml po q12hr PRN Cough HYDROCOD POLST-CHLORPHEN POLST 61979568964 Active Carlton Hu MD Active AMOXICILLIN 500 MG ORAL CAPSULE 1 cap by mouth three times a day AMOXICILLIN 32096505786 No Longer Active Carlton Hu MD Active ELMIRON 100 MG ORAL CAPSULE 2 tablets in the am and 1 tablet at hs PENTOSAN POLYSULFATE SODIUM 36530063827 No Longer Active Robert Hu MD Active MUCINEX D 60-600 MG ORAL TABLET EXTENDED RELEASE 12 HOUR 1 t ab po q am PSEUDOEPHEDRINE-GUAIFENESIN 15454389894 No Longer Act nael Carlton Hu MD Active MUCINEX DM MAXIMUM STRENGTH 60-1200 MG ORAL TABLET EXT ENDED RELEASE 12 HOUR 1 tab po q am DEXTROMETHORPHAN-GUAIFENESIN 37136815962 No Longer Active Carlton Hu MD Active TUSSIONEX PENNKINETIC ER 10-8 MG/5ML ORAL SUSPENSION E XTENDED RELEASE 5ml po q12hr PRN Cough HYDROCOD POLST-CHLORPHEN POLST 5 5529901135 No Longer Active Carlton Hu MD Active POTASSIUM CHLORIDE ER 20 MEQ ORAL TABLET EXTENDED RELE ASE Take 1 by mouth 4 times daily for 7 days POTASSIUM CHLORIDE 02728699380 No Longer Active Carlton Hu MD Active ZITHROMAX 250 MG ORAL TABLET 2 po today, then 1 po q days 2-5 14/09/04 AZITHROMYCIN 43073153997 No Longer Active Elise Garcia APRN Active TUSSIONEX PENNKINETIC ER 10-8 MG/5ML ORAL SUSPENSION E XTENDED RELEASE 5 ml twice a day as needed for cough HYDROCOD POLST-CHLORPH EN POLST 43677362775 No Longer Active Elise Garcia APRN Active MONTELUKAST SODIUM 10 MG ORAL TABLET 1 po daily for Allergy MONTELUKAST SODIUM 81499301695 Active Carlton Hu MD Ac tive TUSSIONEX PENNKINETIC ER 10-8 MG/5ML ORAL SUSPENSION E XTENDED RELEASE 5ml po q12hr PRN Cough HYDROCOD POLST-CHLORPHEN POLST 5 4471897136 No Longer Active Hugo Restrepo MD Active GABAPENTIN 100 MG ORAL CAPSULE 1 po BID for fibromyalgia GABAPENTIN 30550177672 Active Carlton Hu MD Active LYRICA 100 MG ORAL CAPSULE Take 1 tab po BID for fibromyalgia 20 11/08/21 PREGABALIN 39779427859 No Longer Active Elise Garcia APRN A ctive PREDNISONE 20 MG ORAL TABLET 2 tabs daily for 3 days, 1 tab daily for 3 days, 1/2 tab daily for 2 days PREDNISONE 25075132652 No Longer Active Venullina Cesarl [employer]ING MANAGER Active TUSSIONEX PENNKINETIC ER 10-8 MG/5ML ORAL SUSPENSION E XTENDED RELEASE 5 mL PO q 12 hrs PRN cough HYDROCOD POLST-CHLORPHEN POLST 070830 18001 No Longer Active Jillina Frazell [employer] MA[employer]GER Active FLUTICASONE PROPIONATE 50 MCG/ACT NASAL SUSPENSION 2 s prays each nostril daily until bottle is empty FLUTICASONE PROPIONATE 039337865 99 No Longer Active Jillina Frazell OFF[employer]ORING MANAGER Active ASMANEX 60 METERED DOSES 220 MCG/INH INHALATION AEROSO L POWDER BREATH ACTIVATED 1 puff bid with rinse after MOMETASONE FUROATE 4685145 4102 No Longer Active Venullina Cesarl [employer]ING MANAGER Active ZITHROMAX Z-REYNA 250 MG ORAL TABLET 2 today, then 1 daily for 4 d ays AZITHROMYCIN 86531890258 No Longer Active Elise Garcia OFF[employer]ORING MANAGER Active TUSSIONEX PENNKINETIC ER 10-8 MG/5ML ORAL SUSPENSION E XTENDED RELEASE 5ml po q12hr PRN Cough HYDROCOD POLST-CHLORPHEN POLST 5 7693119830 No Longer Active Elise Garcia OFF[employer]ING MANAGER Active PREDNISONE 20 MG ORAL TABLET 2 tabs daily for 3 days, 1 tab daily for 3 days, 1/2 tab daily for 2 days PREDNISONE 46718606179 No Longer Active Jillina Frazell [employer]ORING MANAGER Active AMOXICILLIN 500 MG ORAL CAPSULE 2 po BID x 10 days 201 09/29/08 AMOXICILLIN 76032708555 No Longer Active Jillina Frazell [employer]ORING MANAGER Act nael SINGULAIR 10 MG ORAL TABLET 1 po qday for allergies 20 14/01/12 MONTELUKAST SODIUM 02490722413 No Longer Active Carlton Hu MD Active LEVAQUIN 500 MG ORAL TABLET 1 tablet by mouth daily 20 13/09/24 LEVOFLOXACIN 58526007303 No Longer Active Carlton Hu MD Acti ve FLUTICASONE PROPIONATE 50 MCG/ACT NASAL SUSPENSION 2 s prays each nostril daily for 2 weeks, then 1 spray each nostril daily. FLUTICASONE PROPIONATE 22625618377 Active Elisedeirdre Garcia APRN Active ZITHROMAX 250 MG ORAL TABLET 2 po today, then 1 po q days 2-5 20 13/08/10 AZITHROMYCIN 86225149437 No Longer Active Elise Garcia APRN Active XANAX 0.5 MG ORAL TABLET one tablet by mouth daily prn anxiety 2015 ALPRAZOLAM 17133462242 Active ALFREDO Holly Active CYMBALTA 30 MG ORAL CAPSULE DELAYED RELEASE PARTICLES 1 cap by mouth daily for depression DULOXETINE HCL 73645646975 Active Carlton beltrán MD Active CEFDINIR 300 MG ORAL CAPSULE 1 po BID x 10 days CEFDINIR 09254459335 No Longer Active Carlton Hu MD Active ZOCOR 40 MG ORAL TABLET 1 tab by mouth daily SI MVASTATIN 45595379404 No Longer Active Carlton Hu MD Active CYCLOBENZAPRINE HCL 10 MG ORAL TABLET 1 tablet by mouth BID prn had pain CYCLOBENZAPRINE HCL 62635864777 No Longer Active Jayden Hu MD Active LEVOFLOXACIN 500 MG ORAL TABLET 1 tab PO daily x 10 days LEVOFLOXACIN 09287453487 No Longer Active Carlton Hu MD Acti ve PREDNISONE 20 MG ORAL TABLET 3 tab PO qd x 2d, 2 tab P O qd x 2d, 1 tab PO qd x 2d, 1/2 tab PO qd x 2d PREDNISONE 01286320815 No Lo nger Active Carlton Hu MD Active FLUTICASONE PROPIONATE 50 MCG/ACT NASAL SUSPENSION 1 t o 2 sprays each nostril daily FLUTICASONE PROPIONATE 64581878249 No Longer Ac tive Blaine HERNANDEZ Active CHERATUSSIN AC 100-10 MG/5ML ORAL SYRUP 1 tsp by mouth every 4 hours as needed for cough GUAIFENESIN-CODEINE 73181651264 No Longe r Active Blaine EHRNANDEZ Active PROMETHAZINE-CODEINE 6.25-10 MG/5ML ORAL SYRUP 1 tsp b y mouth every 6 hours if needed for cough PROMETHAZINE-CODEINE 15219497808 No Longer Active Blaine HERNANDEZ Active CHERATUSSIN AC 100-10 MG/5ML ORAL SYRUP 1 tsp by mouth every 4 hours as needed for cough GUAIFENESIN-CODEINE 27036059732 No Longe r Active Blaine HERNANDEZ Active ZITHROMAX Z-REYNA 250 MG ORAL TABLET 2 today, then 1 daily for 4 d ays AZITHROMYCIN 37476097581 No Longer Active Columba Raida Act nael ZITHROMAX 250 MG ORAL TABLET 2 po today, then 1 po q days 2-5 20 14/03/21 AZITHROMYCIN 32144881333 No Longer Active Carlton Hu MD Active ZITHROMAX Z-REYNA 250 MG ORAL TABLET 2 today, then 1 daily for 4 d ays AZITHROMYCIN 66032954128 No Longer Active Columba Raida Act nael AUGMENTIN 875-125 MG ORAL TABLET 1 po BID x 10 days 13/01/20 AMOXICILLIN-POT CLAVULANATE 87079737099 No Longer Active Diya De Guzman APRN Active ZITHROMAX 250 MG ORAL TABLET 2 po today, then 1 po q days 2-5 20 12/08/14 AZITHROMYCIN 93155028474 No Longer Active Carlton Hu MD Active TRAMADOL HCL 50 MG ORAL TABLET 1 po tid with ES Tylenol TRAMADOL HCL 65328222739 Active ALFREDO Holly Active PREMARIN 0.625 MG ORAL TABLET TAKE 1 TAB BY MOUTH DAILY ESTROGENS CONJUGATED 98725097711 No Longer Active Ridge Bess DO A ctive CYMBALTA 30 MG ORAL CAPSULE DELAYED RELEASE PARTICLES 1 cap by mouth daily DULOXETINE HCL 13835994073 No Longer Active Ridge Ya ee DO Active AMOXICILLIN 500 MG ORAL CAPSULE 1 tab by mouth 3 times daily x 10 days AMOXICILLIN 30584549016 No Longer Active Carlton bustamante MD Active AMOXICILLIN 500 MG ORAL CAPSULE 1 tab by mouth 3 times daily x 10 days AMOXICILLIN 79266980314 No Longer Active Carlton bustamante MD Active PROMETHAZINE-CODEINE 6.25-10 MG/5ML ORAL SYRUP 1 tsp b y mouth every 8 hours prn cough PROMETHAZINE-CODEINE 73303956139 No Longer Acti ve Carlton Hu MD Active MEDROL 4 MG ORAL TABLET THERAPY PACK 6 pills x 1 day, then 5 pills x 1 day then 4 pills x 1 day, then 3 pills x 1 day, then 2 pills x 1 day, then 1 pill x 1 day, then stop METHYLPREDNISOLONE 21949347023 No Long er Active Perez Mora MD Active AZITHROMYCIN 250 MG ORAL TABLET 2 po qd x 1 day, then 1 po q d x 4 days AZITHROMYCIN 89263101758 No Longer Active Perez Ambriz MD Active SYMBICORT 160-4.5 MCG/ACT INHALATION AEROSOL 2 puffs bid wit h rinse after BUDESONIDE-FORMOTEROL FUMARATE 01748427702 N o Longer Active Perez Mora MD Active LYRICA 75 MG ORAL CAPSULE TAKE 1 CAPSULE BY MOUTH TWICE DAILY PREGABALIN 98378305839 No Longer Active Carlton Hu MD Acti ve TOPAMAX 25 MG ORAL TABLET 1 qHS x 1 week, then 1 BID x 1 week, then 1 qAM and 2 qHS x 1 week, then 2 BID (migraine prevention) T OPIRAMATE 91624842525 No Longer Active Jerica FUENTES Active TOPAMAX 50 MG ORAL TABLET take 1 tab po BID for migraines. 07/02 TOPIRAMATE 18513230724 No Longer Active Jerica FUENTES Active TOPAMAX 100 MG ORAL TABLET Take 1 tablet po bid TO PIRAMATE 85058236515 Active Carlton Hu MD Active TRIAMCINOLONE ACETONIDE 0.1 % EXTERNAL CREAM apply three roger es daily prn rash TRIAMCINOLONE ACETONIDE 03176753464 No Longer Active Carlton Hu MD Active PAXIL 40 MG ORAL TABLET take 1 tab po qday for depression 0 PAROXETINE HCL 93081629906 Active ALFREDO Holly Active CHERATUSSIN AC 100-10 MG/5ML ORAL SYRUP 5ml po q6hr PRN Cough 20 13/04/14 GUAIFENESIN-CODEINE 57994043023 No Longer Active Carlton Hu MD Active MEDROL 4 MG ORAL TABLET THERAPY PACK 6 tabs on day 1, 5 tabs on day 2, 4 tabs on day 3, 3 tabs on day 4, 2 tabs on day 5, 1 tab on day 6 2013 METHYLPREDNISOLONE 64737861476 No Longer Active Perez Mora MD Active AZITHROMYCIN 250 MG ORAL TABLET 2 po qd x 1 day, then 1 po q d x 4 days AZITHROMYCIN 54466499700 No Longer Active Perez Ambriz MD Active PROPRANOLOL HCL 60 MG ORAL TABLET 1 PO Q D PROPRANOLOL HCL 21422993194 No Longer Active Perez Mora MD Activ e CHERATUSSIN AC 100-10 MG/5ML ORAL SYRUP take one tsp po Q 6h ours prn cough GUAIFENESIN-CODEINE 52289642166 No Longer Active Zia Mora MD Active AUGMENTIN 875-125 MG ORAL TABLET 1 tab by mouth twice daily with food AMOXICILLIN-POT CLAVULANATE 02099125003 No Longer Act nael Perez Mora MD Active CHERATUSSIN AC 100-10 MG/5ML ORAL SYRUP 1 tsp by mouth every 4 hours as needed for cough GUAIFENESIN-CODEINE 28252866886 No Longe r Active Hugo Restrepo MD Active ACETAMINOPHEN-CODEINE #3 300-30 MG ORAL TABLET 1 PO Q 4-6 HRS TX N PAIN ACETAMINOPHEN-CODEINE 89450566786 No Longer Active Hugo Restrepo MD Active LEVAQUIN 500 MG ORAL TABLET take one po QD LEVO FLOXACIN 50930486065 No Longer Active Griffin HERNANDEZ Active PREDNISONE 20 MG ORAL TABLET Take 3 tabs daily for 3 d ays, 2 tabs daily for 3 days, 1 tab daily for 3 days, 1/2 tab daily for 3 days 11/07 PREDNISONE 70682507374 No Longer Active Carlton Hu MD Acti ve AVELOX 400 MG ORAL TABLET 1 tab by mouth daily MOXIFLOXACIN HCL 03721872481 No Longer Active Carlton Hu MD Active CHERATUSSIN AC 100-10 MG/5ML ORAL SYRUP 1 tsp by mouth every 4 hours as needed for cough GUAIFENESIN-CODEINE 21429332536 No Longe r Active Hugo Restrepo MD Active AVELOX 400 MG ORAL TABLET 1 tab by mouth daily MOXIFLOXACIN HCL 28176890009 No Longer Active Marcy De La Rosa MD PhD Active TERBINAFINE HCL 250 MG ORAL TABLET 1 qDay T ERBINAFINE HCL 16744717060 No Longer Active Marcy De La Rosa MD PhD Active CHERATUSSIN AC 100-10 MG/5ML ORAL SYRUP 1 tsp by mouth every 4 hours as needed for cough GUAIFENESIN-CODEINE 31279854165 No Longe r Active Marcy De La Rosa MD PhD Active AVELOX 400 MG ORAL TABLET 1 tab by mouth daily MOXIFLOXACIN HCL 99814733287 No Longer Active Marcy De La Rosa MD PhD Active HYDROCODONE-ACETAMINOPHEN 5-325 MG ORAL TABLET 1 po q 6hr PRN co ugh HYDROCODONE-ACETAMINOPHEN 34974207256 No Longer Active Marcy De La Rosa MD PhD Active PREDNISONE 20 MG ORAL TABLET 2 tabs daily for 3 days, 1 tab daily for 3 days, 1/2 tab daily for 2 days PREDNISONE 44368557778 No Longer Active Carlton Hu MD Active CEFDINIR 300 MG ORAL CAPSULE by mouth twice a day 2011 CEFDINIR 91800069743 No Longer Active Carlton Hu MD Acti ve HYDROCHLOROTHIAZIDE 25 MG ORAL TABLET 1 TAB PO DAILY HYDROCHLOROTHIAZIDE 48566893218 Active ALFREDO Holly Ac tive ACETAMINOPHEN-CODEINE #3 300-30 MG ORAL TABLET 1 tablet po q 4-6 hrs prn pain ACETAMINOPHEN-CODEINE 80974862077 No Longer Active Ridge Bess DO Active ZITHROMAX 250 MG ORAL TABLET 2 po today, then 1 po q days 2-5 20 03/07/07 AZITHROMYCIN 66099974028 No Longer Active Carlton Hu MD Active CHERATUSSIN AC 100-10 MG/5ML ORAL SYRUP take 1 tsp po q4-6 h ours prn cough GUAIFENESIN-CODEINE 62579128889 No Longer Active Jayden Hu MD Active ACETAMINOPHEN-CODEINE #3 300-30 MG ORAL TABLET 1 PO Q 4-6 HR PRN PAIN ACETAMINOPHEN-CODEINE 77788388833 No Longer Active Arnol Hu MD Active LORTAB 7.5-500 MG/15ML ORAL ELIXIR 7.5 ml po q 4 hour prn cough HYDROCODONE-ACETAMINOPHEN 32380685197 No Longer Active Carlton Hu MD Active PREDNISONE 20 MG ORAL TABLET 1 po bid 3 days, then 1 po q day 3 days PREDNISONE 57369076122 No Longer Active Carlton Hu MD Active CEFDINIR 300 MG ORAL CAPSULE by mouth twice a day 2011 CEFDINIR 05199363340 No Longer Active Carlton Hu MD Acti ve CEFDINIR 300 MG ORAL CAPSULE by mouth twice a day 2010 CEFDINIR 96457850433 No Longer Active Carlton Hu MD Acti ve CEFDINIR 300 MG ORAL CAPSULE by mouth twice a day 2010 CEFDINIR 33303244580 No Longer Active Carlton Hu MD Acti ve TESSALON PERLES 100 MG ORAL CAPSULE 1 tablet by mouth 3 times daily as needed for cough BENZONATATE 00186100504 No Longer Active Carlton Hu MD Active CEFDINIR 300 MG ORAL CAPSULE by mouth twice a day 2010 CEFDINIR 05778489587 No Longer Active Carlton Hu MD Acti ve ZITHROMAX Z-REYNA 250 MG ORAL TABLET 2 today, then 1 daily for 4 d ays AZITHROMYCIN 06674936060 No Longer Active Hugo Restrepo MD Active TESSALON PERLES 100 MG ORAL CAPSULE 1 tablet by mouth 3 times daily as needed for cough TESSALON PERLES 100 MG ORAL CAPSULE 98201 7 BENZONATATE Inactive PREDNISONE 20 MG ORAL TABLET 1 po bid 3 days, then 1 po q day 3 days PREDNISONE 20 MG ORAL TABLET 625292 PREDNISONE [place] ctive LORTAB 7.5-500 MG/15ML ORAL ELIXIR 7.5 [...] cough CHERATUSSIN AC 100-10 MG/5ML ORAL SYRUP 401833 GUAIFENESIN-CODEINE Inactive ACETAMINOPHEN-CODEINE #3 300-30 MG ORAL TABLET 1 tablet po q 4-6 hrs prn pain ACETAMINOPHEN-CODEINE #3 300-30 MG ORAL TABLET ACETAMINOPHEN-CODEINE Inactive HYDROCODONE-ACETAMINOPHEN 5-325 MG ORAL TABLET 1 po q 6hr PRN co ugh HYDROCODONE-ACETAMINOPHEN 5-325 MG ORAL TABLET 518117 HYDROCODONE-ACETAMINOPHEN Inactive AVELOX 400 MG ORAL TABLET 1 tab by mouth daily AVELOX 400 MG ORAL TABLET 785918 MOXIFLOXACIN HCL Inactive CHERATUSSIN AC 100-10 MG/5ML ORAL SYRUP 1 tsp by mouth every 4 hours as needed for cough CHERATUSSIN AC 100-10 MG/5ML ORAL SYRUP 9 93549 GUAIFENESIN-CODEINE Inactive TERBINAFINE HCL 250 MG ORAL TABLET 1 qDay 07/08 TERBINAFINE HCL 250 MG ORAL TABLET 398864 TERBINAFINE HCL Inactive CHERATUSSIN AC 100-10 MG/5ML ORAL SYRUP 1 tsp by mouth every 4 hours as needed for cough CHERATUSSIN AC 100-10 MG/5ML ORAL SYRUP 9 87864 GUAIFENESIN-CODEINE Inactive ACETAMINOPHEN-CODEINE #3 300-30 MG ORAL TABLET 1 PO Q 4-6 HRS TX N PAIN ACETAMINOPHEN-CODEINE #3 300-30 MG ORAL TABLET ACETAMINOPHEN-CODEINE Inactive CHERATUSSIN AC 100-10 MG/5ML ORAL SYRUP 1 tsp by mouth every 4 hours as needed for cough CHERATUSSIN AC 100-10 MG/5ML ORAL SYRUP 9 05486 GUAIFENESIN-CODEINE Inactive AUGMENTIN 875-125 MG ORAL TABLET 1 tab by mouth twice daily with food AUGMENTIN 875-125 MG ORAL TABLET 801956 AMOXICIL MADELINE-POT CLAVULANATE Inactive CHERATUSSIN AC 100-10 MG/5ML ORAL SYRUP take one tsp po Q 6h ours prn cough CHERATUSSIN AC 100-10 MG/5ML ORAL SYRUP 054338 GUAIFENESIN-CODEINE Inactive PROPRANOLOL HCL 60 MG ORAL TABLET 1 PO Q D PROPRANOLOL HCL 60 MG ORAL TABLET 607601 PROPRANOLOL HCL Inactive TOPAMAX 50 MG ORAL TABLET take 1 tab po BID for migraines. 07/02 TOPAMAX 50 MG ORAL TABLET 656247 TOPIRAMATE Inacti ve TOPAMAX 25 MG ORAL TABLET 1 qHS x 1 week, then 1 BID x 1 week, then 1 qAM and 2 qHS x 1 week, then 2 BID (migraine prevention) TOPAMAX 25 MG ORAL TABLET 424437 TOPIRAMATE Inactive LYRICA 75 MG ORAL CAPSULE TAKE 1 CAPSULE BY MOUTH TWICE DAILY LYRICA 75 MG ORAL CAPSULE PREGABALIN Inactive SYMBICORT 160-4.5 MCG/ACT INHALATION AEROSOL 2 puffs bid wit h rinse after SYMBICORT 160-4.5 MCG/ACT INHALATION AEROSOL BUDESONIDE- FORMOTEROL FUMARATE Inactive PROMETHAZINE-CODEINE 6.25-10 MG/5ML ORAL SYRUP 1 tsp b y mouth every 8 hours prn cough PROMETHAZINE-CODEINE 6.25-10 MG/ 5ML ORAL SYRUP 504837 PROMETHAZINE-CODEINE Inactive CYMBALTA 30 MG ORAL CAPSULE DELAYED RELEASE PARTICLES 1 cap by mouth daily CYMBALTA 30 MG ORAL CAPSULE DELAYED RELE ASE PARTICLES 099480 DULOXETINE HCL Inactive PREMARIN 0.625 MG ORAL TABLET TAKE 1 TAB BY MOUTH DAILY PREMARIN 0.625 MG ORAL TABLET ESTROGENS CONJUGATED Inactive CHERATUSSIN AC 100-10 MG/5ML ORAL SYRUP 1 tsp by mouth every 4 hours as needed for cough CHERATUSSIN AC 100-10 MG/5ML ORAL SYRUP 9 47235 GUAIFENESIN-CODEINE Inactive PROMETHAZINE-CODEINE 6.25-10 MG/5ML ORAL SYRUP 1 tsp b y mouth every 6 hours if needed for cough PROMETHAZINE-CODEINE 6.25-10 MG/5ML ORAL SYRUP 405406 PROMETHAZINE-CODEINE Inactive CHERATUSSIN AC 100-10 MG/5ML ORAL SYRUP 1 tsp by mouth every 4 hours as needed for cough CHERATUSSIN AC 100-10 MG/5ML ORAL SYRUP 9 80834 GUAIFENESIN-CODEINE Inactive FLUTICASONE PROPIONATE 50 MCG/ACT NASAL SUSPENSION 1 t o 2 sprays each nostril daily FLUTICASONE PROPIONATE 50 MCG/AC T NASAL SUSPENSION 3789095 FLUTICASONE PROPIONATE Inactive PREDNISONE 20 MG ORAL TABLET 3 tab PO qd x 2d, 2 tab P O qd x 2d, 1 tab PO qd x 2d, 1/2 tab PO qd x 2d PREDNISONE 20 MG ORAL TAB LET 031443 PREDNISONE Inactive LEVOFLOXACIN 500 MG ORAL TABLET 1 tab PO daily x 10 days LEVOFLOXACIN 500 MG ORAL TABLET 421995 LEVOFLOXACIN Inactive CYCLOBENZAPRINE HCL 10 MG ORAL TABLET 1 tablet by mouth BID prn had pain CYCLOBENZAPRINE HCL 10 MG ORAL TABLET 129538 CYCLOBENZAPRINE HCL Inactive ZOCOR 40 MG ORAL TABLET 1 tab by mouth daily 4 ZOCOR 40 MG ORAL TABLET 700301 SIMVASTATIN Inactive TUSSIONEX PENNKINETIC ER 10-8 MG/5ML [...] FLUTICASONE PROPIO EFE 50 MCG/ACT NASAL SUSPENSION 1202524 FLUTICASONE PROPIONATE Inactive TUSSIONEX PENNKINETIC ER 10-8 [...] three days PREDNISONE 20 MG ORAL TABLET 613274 PREDNIS ONE Inactive PROAIR HFA 108 (90 BASE) MCG/ACT INHALATION AEROSOL SO LUTION 2 puffs four times a day as needed PROAIR HFA 108 (90 B ASE) MCG/ACT INHALATION AEROSOL SOLUTION ALBUTEROL SULFATE Inactive ZITHROMAX Z-REYNA 250 MG ORAL TABLET 2 today, then 1 daily for 4 d ays ZITHROMAX Z-REYNA 250 MG ORAL TABLET 731221 AZITHROMYCIN Inactive CEFDINIR 300 MG ORAL CAPSULE by mouth twice a day 2010 CEFDINIR 300 MG ORAL CAPSULE 358748 CEFDINIR Inactive CEFDINIR 300 MG ORAL CAPSULE by mouth twice a day 2010 CEFDINIR 300 MG ORAL CAPSULE 118426 CEFDINIR Inactive CEFDINIR 300 MG ORAL CAPSULE by mouth twice a day 2010 CEFDINIR 300 MG ORAL CAPSULE 863649 CEFDINIR Inactive CEFDINIR 300 MG ORAL CAPSULE by mouth twice a day 2011 CEFDINIR 300 MG ORAL CAPSULE 002191 CEFDINIR Inactive ZITHROMAX 250 MG ORAL TABLET 2 po today, then 1 po q days 2-5 20 03/07/07 ZITHROMAX 250 MG ORAL TABLET 829348 AZITHROMYCIN [place] ctive CEFDINIR 300 MG ORAL CAPSULE by mouth twice a day 2011 CEFDINIR 300 MG ORAL CAPSULE 895790 CEFDINIR Inactive PREDNISONE 20 MG ORAL TABLET 2 tabs daily for 3 days, 1 tab daily for 3 days, 1/2 tab daily for 2 days PREDNISONE 20 MG ORAL T ABLET 105190 PREDNISONE Inactive AVELOX 400 MG ORAL TABLET 1 tab by mouth daily AVELOX 400 MG ORAL TABLET 944366 MOXIFLOXACIN HCL Inactive AVELOX 400 MG ORAL TABLET 1 tab by mouth daily AVELOX 400 MG ORAL TABLET 255910 MOXIFLOXACIN HCL Inactive PREDNISONE 20 MG ORAL TABLET Take 3 tabs daily for 3 d ays, 2 tabs daily for 3 days, 1 tab daily for 3 days, 1/2 tab daily for 3 days 11/07 PREDNISONE 20 MG ORAL TABLET 683103 PREDNISONE Inactive LEVAQUIN 500 MG ORAL TABLET take one po QD LEVAQUIN 500 MG ORAL TABLET 866486 LEVOFLOXACIN Inactive AZITHROMYCIN 250 MG ORAL TABLET 2 po qd x 1 day, then 1 po q d x 4 days AZITHROMYCIN 250 MG ORAL TABLET 583523 AZITHROMY GIOVANNI Inactive MEDROL 4 MG ORAL TABLET THERAPY PACK 6 tabs on day 1, 5 tabs on day 2, 4 tabs on day 3, 3 tabs on day 4, 2 tabs on day 5, 1 tab on day 6 2013 MEDROL 4 MG ORAL TABLET THERAPY PACK 106684 METHYLPREDNISOLONE [place] ctive CHERATUSSIN AC 100-10 MG/5ML ORAL SYRUP 5ml po q6hr PRN Cough 20 13/04/14 CHERATUSSIN AC 100-10 MG/5ML ORAL SYRUP 437729 GUAIFENE SIN-CODEINE Inactive TRIAMCINOLONE ACETONIDE 0.1 % EXTERNAL CREAM apply three roger es daily prn rash TRIAMCINOLONE ACETONIDE 0.1 % EXTERNAL CREAM 101 4314 TRIAMCINOLONE ACETONIDE Inactive AZITHROMYCIN 250 MG ORAL TABLET 2 po qd x 1 day, then 1 po q d x 4 days AZITHROMYCIN 250 MG ORAL TABLET 027189 AZITHROMY GIOVANNI Inactive MEDROL 4 MG ORAL TABLET THERAPY PACK 6 pills x 1 day, then 5 pills x 1 day then 4 pills x 1 day, then 3 pills x 1 day, then 2 pills x 1 day, then 1 pill x 1 day, then stop MEDROL 4 MG ORAL TABLET THERAPY PACK 814683 METHYLPREDNISOLONE Inactive AMOXICILLIN 500 MG ORAL CAPSULE 1 tab by mouth 3 times daily x 10 days AMOXICILLIN 500 MG ORAL CAPSULE 271548 AMOXICILL IN Inactive AMOXICILLIN 500 MG ORAL CAPSULE 1 tab by mouth 3 times daily x 10 days AMOXICILLIN 500 MG ORAL CAPSULE 495210 AMOXICILL IN Inactive ZITHROMAX 250 MG ORAL TABLET 2 po today, then 1 po q days 2-5 20 12/08/14 ZITHROMAX 250 MG ORAL TABLET 555857 AZITHROMYCIN [place] ctive AUGMENTIN 875-125 MG ORAL TABLET 1 po BID x 10 days 20 13/01/20 AUGMENTIN 875-125 MG ORAL TABLET 903482 AMOXICILLIN-POT CLAVULANATE Inactive ZITHROMAX Z-REYNA 250 MG ORAL TABLET 2 today, then 1 daily for 4 d ays ZITHROMAX Z-REYNA 250 MG ORAL TABLET 033493 AZITHROMYCIN Inactive ZITHROMAX 250 MG ORAL TABLET 2 po today, then 1 po q days 2-5 20 14/03/21 ZITHROMAX 250 MG ORAL TABLET 798732 AZITHROMYCIN [place] ctive ZITHROMAX Z-REYNA 250 MG ORAL TABLET 2 today, then 1 daily for 4 d ays ZITHROMAX Z-REYNA 250 MG ORAL TABLET 367356 AZITHROMYCIN Inactive CEFDINIR 300 MG ORAL CAPSULE 1 po BID x 10 days 2015/06/21 CEFDINIR 300 MG ORAL CAPSULE 201954 CEFDINIR Inactive ZITHROMAX 250 MG ORAL TABLET 2 po today, then 1 po q days 2-5 20 13/08/10 ZITHROMAX 250 MG ORAL TABLET 939639 AZITHROMYCIN [place] ctive LEVAQUIN 500 MG ORAL TABLET 1 tablet by mouth daily 20 13/09/24 LEVAQUIN 500 MG ORAL TABLET [id number] LEVOFLOXACIN Inactive SINGULAIR 10 MG ORAL TABLET 1 po qday for allergies 20 14/01/12 SINGULAIR 10 MG ORAL TABLET 767543 MONTELUKAST SODIUM Inactive AMOXICILLIN 500 MG ORAL CAPSULE 2 po BID x 10 days 201 09/29/08 AMOXICILLIN 500 MG ORAL CAPSULE 775949 AMOXICILLIN Inactive PREDNISONE 20 MG ORAL TABLET 2 tabs daily for 3 days, 1 tab daily for 3 days, 1/2 tab daily for 2 days PREDNISONE 20 MG ORAL T ABLET [id number] PREDNISONE Inactive ZITHROMAX Z-REYNA 250 MG ORAL TABLET 2 today, then 1 daily for 4 d ays ZITHROMAX Z-REYNA 250 MG ORAL TABLET 205884 AZITHROMYCIN Inactive PREDNISONE 20 MG ORAL TABLET 2 tabs daily for 3 days, 1 tab daily for 3 days, 1/2 tab daily for 2 days PREDNISONE 20 MG ORAL T ABLET 749151 PREDNISONE Inactive ZITHROMAX 250 MG ORAL TABLET 2 po today, then 1 po q days 2-5 20 14/09/04 ZITHROMAX 250 MG ORAL TABLET 235722 AZITHROMYCIN [place] [facility] AMOXICILLIN 500 MG ORAL CAPSULE 1 cap by mouth three times a day AMOXICILLIN 500 MG ORAL CAPSULE 309878 AMOXICILLIN Inactive TERBINAFINE HCL 250 MG ORAL TABLET 1 qDay for nail fungus 7 TERBINAFINE HCL 250 MG ORAL TABLET 809015 TERBINAFINE HCL Inact nael AUGMENTIN 875-125 MG ORAL TABLET 1 po BID x 10 days 16/03/22 AUGMENTIN 875-125 MG ORAL TABLET 638530 AMOXICILLIN-POT CLAVULANATE Inactive PREDNISONE 20 MG ORAL TABLET 2 po qd x 5 days PREDNISONE 20 MG ORAL TABLET 095664 PREDNISONE Inactive AZITHROMYCIN 250 MG ORAL TABLET 2 po qd x 1 day, then 1 po q d x 4 days AZITHROMYCIN 250 MG ORAL TABLET 465849 AZITHROMY GIOVANNI Inactive Vital Signs Date Name [...] - Chem istry sodium, serum 139 mmol/L 761-245 7787/03/19 potassium, serum 3.6 mmol/L 3.5-5.2 chloride, serum 100 mmol/L 98-107 carbon dioxide, venous blood 30.3 mmol/L 21.0-32 .0 blood glucose 101 mg/dL 65-110 calcium, serum 9.4 mg/dL 8.5-10.1 urea nitrogen, blood 10 mg/dL 7-18 creatinine, serum 0.96 mg/dL 0.60-1.30 sodium, serum 139 mmol/L 868-518 5513/10/12 potassium, serum 3.8 mmol/L 3.5-5.2 chloride, serum 102 mmol/L 98-107 carbon dioxide, venous blood 29.4 mmol/L 21.0-32 .0 blood glucose 103 mg/dL 65-95 calcium, serum 8.8 mg/dL 8.5-10.1 urea nitrogen, blood 10 mg/dL 7-18 creatinine, serum 0.97 mg/dL 0.60-1.30 Estimated Glomerular Filtration Rate (calc) 62 (?) mL/min/1.73m2 = OR > 60 mL/min Encounters Code Encounter Date Provider Facility CPT-98717 [id number] Vst-Est Level III 11:12:16 CDT Yanet Bess DO [facility]-69502 Level 3 Est. Patient 11:34:49 PHOTO FINISHER Perez Mora MD [facility] CPT-53108 Level 4 Est. Patient 09:51:32 PHOTO FINISHER Carlton rich MD [facility]-01639 Level 3 Est. Patient 10:26:00 PHOTO FINISHER Elise Are ll [facility] CPT-00055 Level 3 Est. Patient 13:35:41 PHOTO FINISHER Carlton rich MD [facility]-20523 Level 3 Est. Patient 10:03:52 PHOTO FINISHER Carlton rich MD [facility] CPT-11786 Level 3 Est. Patient 12:17:50 CDT Hugo Restrepo MD [facility]-77849 Level 3 Est. Patient 13:42:38 CDT Elise Are ll [facility] CPT-75321 Level 3 Est. Patient 13:23:51 CDT Diya cobian [facility]-79086 Level 3 Est. Patient 14:22:19 PHOTO FINISHER Diya cobian [facility] CPT-38036 Level 3 Est. Patient 10:11:46 CDT Carlton rich MD [facility] CPT-89541 Level 3 Est. Patient 17:29:43 CDT Elise Are ll [facility] CPT-53090 Level 3 Est. Patient 11:58:06 CDT Elise Are ll [facility] CPT-36238 Level 4 Est. Patient 14:36:51 CDT Carlton rich MD [facility]-06586 Level 3 Est. Patient 18:16:00 PHOTO FINISHER Blaine Freeman [facility]-82468 Level 3 Est. Patient 09:45:49 PHOTO FINISHER Carlton rich MD [facility] CPT-96216 Level 3 Est. Patient 13:19:20 CDT Carlton rich MD [facility] CPT-66706 Level 3 Est. Patient 13:06:43 CDT Ridge tam DO [facility] CPT-97835 Level 3 Est. Patient 10:03:07 CDT Perez Mora MD [facility] CPT-70455 Level 3 Est. Patient 19:50:35 PHOTO FINISHER Carlton rich MD [facility] CPT-16771 Level 4 Est. Patient 18:05:01 PHOTO FINISHER Carlton rich MD [facility] CPT-94279 Level 3 Est. Patient 10:45:55 PHOTO FINISHER Hugo Restrepo MD [facility]-75116 Level 3 Est. Patient 14:12:49 CDT Griffin lincoln [facility] CPT-38247 Level 3 Est. Patient 17:37:24 CDT Carlton rich MD [facility] CPT-06712 Level 3 Est. Patient 16:51:54 CDT Carlton rich MD [facility] CPT-63975 Level 3 Est. Patient 12:18:11 CDT Hugo Restrepo MD [facility] CPT-89627 Level 3 Est. Patient 11:30:25 CDT Marcy crisostomo MD PhD [facility] CPT-81937 Level 3 Est. Patient 12:00:47 PHOTO FINISHER Carlton rich MD [facility] CPT-27140 Level 3 Est. Patient 16:31:06 PHOTO FINISHER Carlton rich MD [facility] CPT-91875 Level 3 Est. Patient 16:23:24 PHOTO FINISHER Ridge tam [facility] CPT-88916 Level 3 Est. Patient 12:34:12 CDT Carlton rich MD [facility] CPT-13894 Level 2 Est. Patient 15:43:33 CDT Robi armstrong MD [facility] CPT-70486 Level 4 Est. Patient 14:04:44 CDT Carlton rich MD [facility] CPT-50165 Level 3 Est. Patient 05:47:59 CDT Ridge tam [facility] CPT-56120 Level 3 Est. Patient 13:12:53 PHOTO FINISHER Carlton rich MD [facility] CPT-49501 Level 3 Est. Patient 14:26:53 CDT Hugo Restrepo MD [facility] Procedures Code Procedure Name Date Entry Date Standard Desc ription CPT-000 Give Appropriate Flu Vaccine 14:14:31 CDT 2 CPT-J1040 Depo Medrol 80 mg (Methyl Prednisolone A cetate) 10:42:44 CDT CPT-J1100 Decadron 8mg (Dexamethasone) 10:42:44 CDT 2 CPT-J0696 Rocephin 1gm Inj Solr 14:32:13 CDT CPT-J1020 Depo Medrol 60 mg (Methyl Prednisolone A cetate) 14:32:13 CDT CPT-J1100 Decadron 6mg (Dexamethasone) 14:32:13 CDT 2 CPT-45631 Hip bilat min 2V w AP pelvis 13:16:20 CDT 2 CPT-95801 Pelvis only 13:07:33 CDT CPT-56947 Spec Collection and Handling Fee 11:25:12 C DT CPT-80742 Fluzone Quadrivalent Intramuscular Suspe nsion 0.5 ML 14:31:55 CDT CPT-45595 Abx/Therapy Injection 13:28:47 PHOTO FINISHER CPT-J2930 Solu Medrol 125 mg (Methyl Prednisolone Sodium Succinate) 12:00:47 PHOTO FINISHER CPT-69797 Venipuncture Draw Fee 11:33:31 CDT CPT-24645 EKG Trac and Interp 11:21:09 CDT CPT-66063 Chest 2V Frontal and Lat 11:21:09 CDT 12/15 CPT-86848 Venipuncture Draw Fee 08:02:34 CDT CPT-72539 Chest 2V Frontal and Lat 05:47:59 CDT 06/05
--- OUTSIDE RECORDS SUMMARY | 2019-10-08 09:33 | XMS REPORT | Clinical Summary ---
[...] Other and unspecified angina pectoris URI 465.9 Active Ridge Bess DO Acu te upper respiratory infections of unspecified site Body [...] po q d x 4 days AZITHROMYCIN 29519005109 No Longer Active Ridge Bess DO Active PREDNISONE 20 MG ORAL TABLET two tabs by mouth today, then one tab by mouth days two and three and four PREDNISONE 68413961895 Active Arash Bess DO Active PREDNISONE 20 MG ORAL TABLET 2 po qd x 5 days P REDNISONE 37045552682 No Longer Active Perez Mora MD Active PROAIR HFA 108 (90 BASE) MCG/ACT INHALATION AEROSOL SO LUTION 2 puffs four times a day as needed ALBUTEROL SULFATE 27168259031 No Long er Active Becky FUENTES Active ASPIRIN 81 MG ORAL TABLET 1 po qd ASPIRIN 66145268038 Active Carlton Hu MD Active PREDNISONE 20 MG ORAL TABLET 1 tab twice daily for 3 d ay, then one daily for three days PREDNISONE 22178073022 No Longer Active Carlton Hu MD Active AUGMENTIN 875-125 MG ORAL TABLET 1 po BID x 10 days 20 16/03/22 AMOXICILLIN-POT CLAVULANATE 26320351020 No Longer Active Elise Garcia APRN Active TERBINAFINE HCL 250 MG ORAL TABLET 1 qDay for nail fungus 7 TERBINAFINE HCL 19350218425 No Longer Active Carlton Hu MD A ctive TUSSIONEX PENNKINETIC ER 10-8 MG/5ML ORAL SUSPENSION E XTENDED RELEASE 5ml po q12hr PRN Cough HYDROCOD POLST-CHLORPHEN POLST 01160056340 Active Carlton Hu MD Active AMOXICILLIN 500 MG ORAL CAPSULE 1 cap by mouth three times a day AMOXICILLIN 74797212996 No Longer Active Carlton Hu MD Active ELMIRON 100 MG ORAL CAPSULE 2 tablets in the am and 1 tablet at hs PENTOSAN POLYSULFATE SODIUM 26810035163 No Longer Active Robert Hu MD Active MUCINEX D 60-600 MG ORAL TABLET EXTENDED RELEASE 12 HOUR 1 t ab po q am PSEUDOEPHEDRINE-GUAIFENESIN 77071361545 No Longer Act nael Carlton Hu MD Active MUCINEX DM MAXIMUM STRENGTH 60-1200 MG ORAL TABLET EXT ENDED RELEASE 12 HOUR 1 tab po q am DEXTROMETHORPHAN-GUAIFENESIN 28822819462 No Longer Active Carlton Hu MD Active TUSSIONEX PENNKINETIC ER 10-8 MG/5ML ORAL SUSPENSION E XTENDED RELEASE 5ml po q12hr PRN Cough HYDROCOD POLST-CHLORPHEN POLST 5 2584420537 No Longer Active Carlton Hu MD Active POTASSIUM CHLORIDE ER 20 MEQ ORAL TABLET EXTENDED RELE ASE Take 1 by mouth 4 times daily for 7 days POTASSIUM CHLORIDE 10284969389 No Longer Active Carlton Hu MD Active ZITHROMAX 250 MG ORAL TABLET 2 po today, then 1 po q days 2-5 20 14/09/04 AZITHROMYCIN 50025604347 No Longer Active Elise Garcia APRN Active TUSSIONEX PENNKINETIC ER 10-8 MG/5ML ORAL SUSPENSION E XTENDED RELEASE 5 ml twice a day as needed for cough HYDROCOD POLST-CHLORPH EN POLST 89463060640 No Longer Active Elise Garcia APRN Active MONTELUKAST SODIUM 10 MG ORAL TABLET 1 po daily for Allergy MONTELUKAST SODIUM 35335125253 Active Carlton Hu MD Ac tive TUSSIONEX PENNKINETIC ER 10-8 MG/5ML ORAL SUSPENSION E XTENDED RELEASE 5ml po q12hr PRN Cough HYDROCOD POLST-CHLORPHEN POLST 5 8069894668 No Longer Active Hugo Restrepo MD Active GABAPENTIN 100 MG ORAL CAPSULE 1 po BID for fibromyalgia GABAPENTIN 06506612256 Active Carlton Hu MD Active LYRICA 100 MG ORAL CAPSULE Take 1 tab po BID for fibromyalgia 20 11/08/21 PREGABALIN 48886914797 No Longer Active Elise Arell [employer] INSPECTOR A ctive PREDNISONE 20 MG ORAL TABLET 2 tabs daily for 3 days, 1 tab daily for 3 days, 1/2 tab daily for 2 days PREDNISONE 83390458078 No Longer Active Jillina Frazell [employer] INSPECTOR Active TUSSIONEX PENNKINETIC ER 10-8 MG/5ML ORAL SUSPENSION E XTENDED RELEASE 5 mL PO q 12 hrs PRN cough HYDROCOD POLST-CHLORPHEN POLST 014700 68499 No Longer Active Jillina Frazell [employer] INSPECTOR Active FLUTICASONE PROPIONATE 50 MCG/ACT NASAL SUSPENSION 2 s prays each nostril daily until bottle is empty FLUTICASONE PROPIONATE 861412616 99 No Longer Active Jillina Frazell [employer]RA[employer] INSPECTOR Active ASMANEX 60 METERED DOSES 220 MCG/INH INHALATION AEROSO L POWDER BREATH ACTIVATED 1 puff bid with rinse after MOMETASONE FUROATE 6583862 4102 No Longer Active Jillina Frazell [employer] INSPECTOR Active ZITHROMAX Z-REYNA 250 MG ORAL TABLET 2 today, then 1 daily for 4 d ays AZITHROMYCIN 19482037734 No Longer Active Elise Arell [employer]RA[employer] INSPECTOR Active TUSSIONEX PENNKINETIC ER 10-8 MG/5ML ORAL SUSPENSION E XTENDED RELEASE 5ml po q12hr PRN Cough HYDROCOD POLST-CHLORPHEN POLST 5 4780591517 No Longer Active Elise Arell [employer]RA[employer] INSPECTOR Active PREDNISONE 20 MG ORAL TABLET 2 tabs daily for 3 days, 1 tab daily for 3 days, 1/2 tab daily for 2 days PREDNISONE 07276961079 No Longer Active Jillina Frazell [employer] INSPECTOR Active AMOXICILLIN 500 MG ORAL CAPSULE 2 po BID x 10 days 201 09/29/08 AMOXICILLIN 36340724414 No Longer Active Jillina Frazell [employer] INSPECTOR Act nael SINGULAIR 10 MG ORAL TABLET 1 po qday for allergies 20 14/01/12 MONTELUKAST SODIUM 00663002563 No Longer Active Carlton Hu MD Active LEVAQUIN 500 MG ORAL TABLET 1 tablet by mouth daily 20 13/09/24 LEVOFLOXACIN 16528698753 No Longer Active Carlton Hu MD Acti ve FLUTICASONE PROPIONATE 50 MCG/ACT NASAL SUSPENSION 2 s prays each nostril daily for 2 weeks, then 1 spray each nostril daily. FLUTICASONE PROPIONATE 44096316743 Active Elise Arell [employer] INSPECTOR Active ZITHROMAX 250 MG ORAL TABLET 2 po today, then 1 po q days 2-5 20 13/08/10 AZITHROMYCIN 23737805669 No Longer Active Elise Areseema [employer] INSPECTOR Active XANAX 0.5 MG ORAL TABLET one tablet by mouth daily prn anxiety 2015 ALPRAZOLAM 90680266205 Active ALFREDO Holly Active CYMBALTA 30 MG ORAL CAPSULE DELAYED RELEASE PARTICLES 1 cap by mouth daily for depression DULOXETINE HCL 85367778165 Active Carlton beltrán MD Active CEFDINIR 300 MG ORAL CAPSULE 1 po BID x 10 days CEFDINIR 22859516714 No Longer Active Carlton Hu MD Active ZOCOR 40 MG ORAL TABLET 1 tab by mouth daily SI MVASTATIN 59124244955 No Longer Active Carlton Hu MD Active CYCLOBENZAPRINE HCL 10 MG ORAL TABLET 1 tablet by mouth BID prn had pain CYCLOBENZAPRINE HCL 58193178014 No Longer Active Jayden Hu MD Active LEVOFLOXACIN 500 MG ORAL TABLET 1 tab PO daily x 10 days LEVOFLOXACIN 32562470136 No Longer Active Carlton Hu MD Acti ve PREDNISONE 20 MG ORAL TABLET 3 tab PO qd x 2d, 2 tab P O qd x 2d, 1 tab PO qd x 2d, 1/2 tab PO qd x 2d PREDNISONE 90012644181 No Lo nger Active Carlton Hu MD Active FLUTICASONE PROPIONATE 50 MCG/ACT NASAL SUSPENSION 1 t o 2 sprays each nostril daily FLUTICASONE PROPIONATE 49174540138 No Longer Ac tive Blaine HERNANDEZ Active CHERATUSSIN AC 100-10 MG/5ML ORAL SYRUP 1 tsp by mouth every 4 hours as needed for cough GUAIFENESIN-CODEINE 97593954853 No Longe r Active Blaine HERNANDEZ Active PROMETHAZINE-CODEINE 6.25-10 MG/5ML ORAL SYRUP 1 tsp b y mouth every 6 hours if needed for cough PROMETHAZINE-CODEINE 29214539426 No Longer Active Blaine HERNANDEZ Active CHERATUSSIN AC 100-10 MG/5ML ORAL SYRUP 1 tsp by mouth every 4 hours as needed for cough GUAIFENESIN-CODEINE 65479274979 No Longe r Active Blaine HERNANDEZ Active ZITHROMAX Z-REYNA 250 MG ORAL TABLET 2 today, then 1 daily for 4 d ays AZITHROMYCIN 88096958649 No Longer Active Columba Raida Act nael ZITHROMAX 250 MG ORAL TABLET 2 po today, then 1 po q days 2-5 20 14/03/21 AZITHROMYCIN 62988865615 No Longer Active Carlton Hu MD Active ZITHROMAX Z-REYNA 250 MG ORAL TABLET 2 today, then 1 daily for 4 d ays AZITHROMYCIN 20398747878 No Longer Active Columba Raida Act nael AUGMENTIN 875-125 MG ORAL TABLET 1 po BID x 10 days 13/01/20 AMOXICILLIN-POT CLAVULANATE 53737098941 No Longer Active Diya De Guzman APRN Active ZITHROMAX 250 MG ORAL TABLET 2 po today, then 1 po q days 2-5 20 12/08/14 AZITHROMYCIN 84467926827 No Longer Active Carlton Hu MD Active TRAMADOL HCL 50 MG ORAL TABLET 1 po tid with ES Tylenol TRAMADOL HCL 37556669365 Active ALFREDO Holly Active PREMARIN 0.625 MG ORAL TABLET TAKE 1 TAB BY MOUTH DAILY ESTROGENS CONJUGATED 90096084991 No Longer Active Ridge Bess DO A ctive CYMBALTA 30 MG ORAL CAPSULE DELAYED RELEASE PARTICLES 1 cap by mouth daily DULOXETINE HCL 42395377729 No Longer Active Ridge Ya ee DO Active AMOXICILLIN 500 MG ORAL CAPSULE 1 tab by mouth 3 times daily x 10 days AMOXICILLIN 00327941317 No Longer Active Carlton bustamante MD Active AMOXICILLIN 500 MG ORAL CAPSULE 1 tab by mouth 3 times daily x 10 days AMOXICILLIN 70795147643 No Longer Active Carlton bustamante MD Active PROMETHAZINE-CODEINE 6.25-10 MG/5ML ORAL SYRUP 1 tsp b y mouth every 8 hours prn cough PROMETHAZINE-CODEINE 54649907491 No Longer Acti ve Carlton Hu MD Active MEDROL 4 MG ORAL TABLET THERAPY PACK 6 pills x 1 day, then 5 pills x 1 day then 4 pills x 1 day, then 3 pills x 1 day, then 2 pills x 1 day, then 1 pill x 1 day, then stop METHYLPREDNISOLONE 50101305212 No Long er Active Perez Mora MD Active AZITHROMYCIN 250 MG ORAL TABLET 2 po qd x 1 day, then 1 po q d x 4 days AZITHROMYCIN 24879844181 No Longer Active Perez Ambriz MD Active SYMBICORT 160-4.5 MCG/ACT INHALATION AEROSOL 2 puffs bid wit h rinse after BUDESONIDE-FORMOTEROL FUMARATE 78300357647 N o Longer Active Perez Mora MD Active LYRICA 75 MG ORAL CAPSULE TAKE 1 CAPSULE BY MOUTH TWICE DAILY PREGABALIN 36499401175 No Longer Active Carlton Hu MD Acti ve TOPAMAX 25 MG ORAL TABLET 1 qHS x 1 week, then 1 BID x 1 week, then 1 qAM and 2 qHS x 1 week, then 2 BID (migraine prevention) T OPIRAMATE 32994790423 No Longer Active Jerica FUENTES Active TOPAMAX 50 MG ORAL TABLET take 1 tab po BID for migraines. 07/02 TOPIRAMATE 22212640506 No Longer Active Jerica FUENTES Active TOPAMAX 100 MG ORAL TABLET Take 1 tablet po bid TO PIRAMATE 15939566162 Active Carlton Hu MD Active TRIAMCINOLONE ACETONIDE 0.1 % EXTERNAL CREAM apply three roger es daily prn rash TRIAMCINOLONE ACETONIDE 64660614136 No Longer Active Carlton Hu MD Active PAXIL 40 MG ORAL TABLET take 1 tab po qday for depression 0 PAROXETINE HCL 90438065923 Active Perez Mora MD Active CHERATUSSIN AC 100-10 MG/5ML ORAL SYRUP 5ml po q6hr PRN Cough 20 13/04/14 GUAIFENESIN-CODEINE 13933689548 No Longer Active Carlton Hu MD Active MEDROL 4 MG ORAL TABLET THERAPY PACK 6 tabs on day 1, 5 tabs on day 2, 4 tabs on day 3, 3 tabs on day 4, 2 tabs on day 5, 1 tab on day 6 2013 METHYLPREDNISOLONE 80139579500 No Longer Active Perez Mora MD Active AZITHROMYCIN 250 MG ORAL TABLET 2 po qd x 1 day, then 1 po q d x 4 days AZITHROMYCIN 85407942515 No Longer Active Perez Ambriz MD Active PROPRANOLOL HCL 60 MG ORAL TABLET 1 PO Q D PROPRANOLOL HCL 82639749922 No Longer Active Perez Mora MD Activ e CHERATUSSIN AC 100-10 MG/5ML ORAL SYRUP take one tsp po Q 6h ours prn cough GUAIFENESIN-CODEINE 54722116979 No Longer Active Zia Mora MD Active AUGMENTIN 875-125 MG ORAL TABLET 1 tab by mouth twice daily with food AMOXICILLIN-POT CLAVULANATE 57295979213 No Longer Act nael Perez Mora MD Active CHERATUSSIN AC 100-10 MG/5ML ORAL SYRUP 1 tsp by mouth every 4 hours as needed for cough GUAIFENESIN-CODEINE 44408830454 No Longe r Active Hugo Restrepo MD Active ACETAMINOPHEN-CODEINE #3 300-30 MG ORAL TABLET 1 PO Q 4-6 HRS VT N PAIN ACETAMINOPHEN-CODEINE 94798654004 No Longer Active Hugo Restrepo MD Active LEVAQUIN 500 MG ORAL TABLET take one po QD LEVO FLOXACIN 98162434075 No Longer Active Griffin HERNANDEZ Active PREDNISONE 20 MG ORAL TABLET Take 3 tabs daily for 3 d ays, 2 tabs daily for 3 days, 1 tab daily for 3 days, 1/2 tab daily for 3 days 11/07 PREDNISONE 27177712161 No Longer Active Carlton Hu MD Acti ve AVELOX 400 MG ORAL TABLET 1 tab by mouth daily MOXIFLOXACIN HCL 33656968059 No Longer Active Carlton Hu MD Active CHERATUSSIN AC 100-10 MG/5ML ORAL SYRUP 1 tsp by mouth every 4 hours as needed for cough GUAIFENESIN-CODEINE 76611563937 No Longe r Active Hugo Restrepo MD Active AVELOX 400 MG ORAL TABLET 1 tab by mouth daily MOXIFLOXACIN HCL 78531474984 No Longer Active Marcy De La Rosa MD PhD Active TERBINAFINE HCL 250 MG ORAL TABLET 1 qDay T ERBINAFINE HCL 76242334163 No Longer Active Marcy De La Rosa MD PhD Active CHERATUSSIN AC 100-10 MG/5ML ORAL SYRUP 1 tsp by mouth every 4 hours as needed for cough GUAIFENESIN-CODEINE 82970670989 No Longe r Active Marcy De La Rosa MD PhD Active AVELOX 400 MG ORAL TABLET 1 tab by mouth daily MOXIFLOXACIN HCL 16563659044 No Longer Active Marcy De La Rosa MD PhD Active HYDROCODONE-ACETAMINOPHEN 5-325 MG ORAL TABLET 1 po q 6hr PRN co ugh HYDROCODONE-ACETAMINOPHEN 83519921010 No Longer Active Marcy De La Rosa MD PhD Active PREDNISONE 20 MG ORAL TABLET 2 tabs daily for 3 days, 1 tab daily for 3 days, 1/2 tab daily for 2 days PREDNISONE 07985730662 No Longer Active Carlton Hu MD Active CEFDINIR 300 MG ORAL CAPSULE by mouth twice a day 2011 CEFDINIR 49447010415 No Longer Active Carlton Hu MD Acti ve HYDROCHLOROTHIAZIDE 25 MG ORAL TABLET 1 TAB PO DAILY HYDROCHLOROTHIAZIDE 58792259344 Active Carlton Hu MD A ctive ACETAMINOPHEN-CODEINE #3 300-30 MG ORAL TABLET 1 tablet po q 4-6 hrs prn pain ACETAMINOPHEN-CODEINE 80852154831 No Longer Active Ridge Bess DO Active ZITHROMAX 250 MG ORAL TABLET 2 po today, then 1 po q days 2-5 20 03/07/07 AZITHROMYCIN 01893657491 No Longer Active Carlton Hu MD Active CHERATUSSIN AC 100-10 MG/5ML ORAL SYRUP take 1 tsp po q4-6 h ours prn cough GUAIFENESIN-CODEINE 54891380592 No Longer Active Jayden Hu MD Active ACETAMINOPHEN-CODEINE #3 300-30 MG ORAL TABLET 1 PO Q 4-6 HR PRN PAIN ACETAMINOPHEN-CODEINE 50842292977 No Longer Active Da raimundo Hu MD Active LORTAB 7.5-500 MG/15ML ORAL ELIXIR 7.5 ml po q 4 hour prn cough HYDROCODONE-ACETAMINOPHEN 49351651425 No Longer Active Carlton Hu MD Active PREDNISONE 20 MG ORAL TABLET 1 po bid 3 days, then 1 po q day 3 days PREDNISONE 70127448844 No Longer Active Carlton Hu MD Active CEFDINIR 300 MG ORAL CAPSULE by mouth twice a day 2011 CEFDINIR 80601589203 No Longer Active Carlton Hu MD Acti ve CEFDINIR 300 MG ORAL CAPSULE by mouth twice a day 2010 CEFDINIR 34407857350 No Longer Active Carlton Hu MD Acti ve CEFDINIR 300 MG ORAL CAPSULE by mouth twice a day 2010 CEFDINIR 91710284800 No Longer Active Carlton Hu MD Acti ve TESSALON PERLES 100 MG ORAL CAPSULE 1 tablet by mouth 3 times daily as needed for cough BENZONATATE 74707962583 No Longer Active Carlton Hu MD Active CEFDINIR 300 MG ORAL CAPSULE by mouth twice a day 2010 CEFDINIR 87291826963 No Longer Active Carlton Hu MD Acti ve ZITHROMAX Z-REYNA 250 MG ORAL TABLET 2 today, then 1 daily for 4 d ays AZITHROMYCIN 26483700223 No Longer Active Hugo Restrepo MD Active TESSALON PERLES 100 MG ORAL CAPSULE 1 tablet by mouth 3 times daily as needed for cough TESSALON PERLES 100 MG ORAL CAPSULE 33123 7 BENZONATATE Inactive PREDNISONE 20 MG ORAL TABLET 1 po bid 3 days, then 1 po q day 3 days PREDNISONE 20 MG ORAL TABLET 106628 PREDNISONE [place] ctive LORTAB 7.5-500 MG/15ML ORAL ELIXIR 7.5 [...] cough CHERATUSSIN AC 100-10 MG/5ML ORAL SYRUP 383063 GUAIFENESIN-CODEINE Inactive ACETAMINOPHEN-CODEINE #3 300-30 MG ORAL TABLET 1 tablet po q 4-6 hrs prn pain ACETAMINOPHEN-CODEINE #3 300-30 MG ORAL TABLET ACETAMINOPHEN-CODEINE Inactive HYDROCODONE-ACETAMINOPHEN 5-325 MG ORAL TABLET 1 po q 6hr PRN co ugh HYDROCODONE-ACETAMINOPHEN 5-325 MG ORAL TABLET 826911 HYDROCODONE-ACETAMINOPHEN Inactive AVELOX 400 MG ORAL TABLET 1 tab by mouth daily AVELOX 400 MG ORAL TABLET 617616 MOXIFLOXACIN HCL Inactive CHERATUSSIN AC 100-10 MG/5ML ORAL SYRUP 1 tsp by mouth every 4 hours as needed for cough CHERATUSSIN AC 100-10 MG/5ML ORAL SYRUP 9 67007 GUAIFENESIN-CODEINE Inactive TERBINAFINE HCL 250 MG ORAL TABLET 1 qDay 07/08 TERBINAFINE HCL 250 MG ORAL TABLET 531143 TERBINAFINE HCL Inactive CHERATUSSIN AC 100-10 MG/5ML ORAL SYRUP 1 tsp by mouth every 4 hours as needed for cough CHERATUSSIN AC 100-10 MG/5ML ORAL SYRUP 9 30850 GUAIFENESIN-CODEINE Inactive ACETAMINOPHEN-CODEINE #3 300-30 MG ORAL TABLET 1 PO Q 4-6 HRS VT N PAIN ACETAMINOPHEN-CODEINE #3 300-30 MG ORAL TABLET ACETAMINOPHEN-CODEINE Inactive CHERATUSSIN AC 100-10 MG/5ML ORAL SYRUP 1 tsp by mouth every 4 hours as needed for cough CHERATUSSIN AC 100-10 MG/5ML ORAL SYRUP 9 75918 GUAIFENESIN-CODEINE Inactive AUGMENTIN 875-125 MG ORAL TABLET 1 tab by mouth twice daily with food AUGMENTIN 875-125 MG ORAL TABLET 230709 AMOXICIL MADELINE-POT CLAVULANATE Inactive CHERATUSSIN AC 100-10 MG/5ML ORAL SYRUP take one tsp po Q 6h ours prn cough CHERATUSSIN AC 100-10 MG/5ML ORAL SYRUP 957173 GUAIFENESIN-CODEINE Inactive PROPRANOLOL HCL 60 MG ORAL TABLET 1 PO Q D PROPRANOLOL HCL 60 MG ORAL TABLET 790115 PROPRANOLOL HCL Inactive TOPAMAX 50 MG ORAL TABLET take 1 tab po BID for migraines. 07/02 TOPAMAX 50 MG ORAL TABLET 517729 TOPIRAMATE Inacti ve TOPAMAX 25 MG ORAL TABLET 1 qHS x 1 week, then 1 BID x 1 week, then 1 qAM and 2 qHS x 1 week, then 2 BID (migraine prevention) TOPAMAX 25 MG ORAL TABLET 566165 TOPIRAMATE Inactive LYRICA 75 MG ORAL CAPSULE TAKE 1 CAPSULE BY MOUTH TWICE DAILY LYRICA 75 MG ORAL CAPSULE PREGABALIN Inactive SYMBICORT 160-4.5 MCG/ACT INHALATION AEROSOL 2 puffs bid wit h rinse after SYMBICORT 160-4.5 MCG/ACT INHALATION AEROSOL BUDESONIDE- FORMOTEROL FUMARATE Inactive PROMETHAZINE-CODEINE 6.25-10 MG/5ML ORAL SYRUP 1 tsp b y mouth every 8 hours prn cough PROMETHAZINE-CODEINE 6.25-10 MG/ 5ML ORAL SYRUP 470279 PROMETHAZINE-CODEINE Inactive CYMBALTA 30 MG ORAL CAPSULE DELAYED RELEASE PARTICLES 1 cap by mouth daily CYMBALTA 30 MG ORAL CAPSULE DELAYED RELE ASE PARTICLES 747054 DULOXETINE HCL Inactive PREMARIN 0.625 MG ORAL TABLET TAKE 1 TAB BY MOUTH DAILY PREMARIN 0.625 MG ORAL TABLET ESTROGENS CONJUGATED Inactive CHERATUSSIN AC 100-10 MG/5ML ORAL SYRUP 1 tsp by mouth every 4 hours as needed for cough CHERATUSSIN AC 100-10 MG/5ML ORAL SYRUP 9 32980 GUAIFENESIN-CODEINE Inactive PROMETHAZINE-CODEINE 6.25-10 MG/5ML ORAL SYRUP 1 tsp b y mouth every 6 hours if needed for cough PROMETHAZINE-CODEINE 6.25-10 MG/5ML ORAL SYRUP 333737 PROMETHAZINE-CODEINE Inactive CHERATUSSIN AC 100-10 MG/5ML ORAL SYRUP 1 tsp by mouth every 4 hours as needed for cough CHERATUSSIN AC 100-10 MG/5ML ORAL SYRUP 9 07317 GUAIFENESIN-CODEINE Inactive FLUTICASONE PROPIONATE 50 MCG/ACT NASAL SUSPENSION 1 t o 2 sprays each nostril daily FLUTICASONE PROPIONATE 50 MCG/AC T NASAL SUSPENSION 5451041 FLUTICASONE PROPIONATE Inactive PREDNISONE 20 MG ORAL TABLET 3 tab PO qd x 2d, 2 tab P O qd x 2d, 1 tab PO qd x 2d, 1/2 tab PO qd x 2d PREDNISONE 20 MG ORAL TAB LET 976502 PREDNISONE Inactive LEVOFLOXACIN 500 MG ORAL TABLET 1 tab PO daily x 10 days LEVOFLOXACIN 500 MG ORAL TABLET 922648 LEVOFLOXACIN Inactive CYCLOBENZAPRINE HCL 10 MG ORAL TABLET 1 tablet by mouth BID prn had pain CYCLOBENZAPRINE HCL 10 MG ORAL TABLET 428969 CYCLOBENZAPRINE HCL Inactive ZOCOR 40 MG ORAL TABLET 1 tab by mouth daily 4 ZOCOR 40 MG ORAL TABLET 416206 SIMVASTATIN Inactive TUSSIONEX PENNKINETIC ER 10-8 MG/5ML [...] FLUTICASONE PROPIO EFE 50 MCG/ACT NASAL SUSPENSION 4813153 FLUTICASONE PROPIONATE Inactive TUSSIONEX PENNKINETIC ER 10-8 [...] three days PREDNISONE 20 MG ORAL TABLET 213914 PREDNIS ONE Inactive PROAIR HFA 108 (90 BASE) MCG/ACT INHALATION AEROSOL SO LUTION 2 puffs four times a day as needed PROAIR HFA 108 (90 B ASE) MCG/ACT INHALATION AEROSOL SOLUTION ALBUTEROL SULFATE Inactive ZITHROMAX Z-REYNA 250 MG ORAL TABLET 2 today, then 1 daily for 4 d ays ZITHROMAX Z-REYNA 250 MG ORAL TABLET 101677 AZITHROMYCIN Inactive CEFDINIR 300 MG ORAL CAPSULE by mouth twice a day 2010 CEFDINIR 300 MG ORAL CAPSULE 687045 CEFDINIR Inactive CEFDINIR 300 MG ORAL CAPSULE by mouth twice a day 2010 CEFDINIR 300 MG ORAL CAPSULE 353298 CEFDINIR Inactive CEFDINIR 300 MG ORAL CAPSULE by mouth twice a day 2010 CEFDINIR 300 MG ORAL CAPSULE 542959 CEFDINIR Inactive CEFDINIR 300 MG ORAL CAPSULE by mouth twice a day 2011 CEFDINIR 300 MG ORAL CAPSULE 252637 CEFDINIR Inactive ZITHROMAX 250 MG ORAL TABLET 2 po today, then 1 po q days 2-5 20 03/07/07 ZITHROMAX 250 MG ORAL TABLET 744322 AZITHROMYCIN [place] ctive CEFDINIR 300 MG ORAL CAPSULE by mouth twice a day 2011 CEFDINIR 300 MG ORAL CAPSULE 085359 CEFDINIR Inactive PREDNISONE 20 MG ORAL TABLET 2 tabs daily for 3 days, 1 tab daily for 3 days, 1/2 tab daily for 2 days PREDNISONE 20 MG ORAL T ABLET 771876 PREDNISONE Inactive AVELOX 400 MG ORAL TABLET 1 tab by mouth daily AVELOX 400 MG ORAL TABLET 589358 MOXIFLOXACIN HCL Inactive AVELOX 400 MG ORAL TABLET 1 tab by mouth daily AVELOX 400 MG ORAL TABLET 545422 MOXIFLOXACIN HCL Inactive PREDNISONE 20 MG ORAL TABLET Take 3 tabs daily for 3 d ays, 2 tabs daily for 3 days, 1 tab daily for 3 days, 1/2 tab daily for 3 days 11/07 PREDNISONE 20 MG ORAL TABLET 744978 PREDNISONE Inactive LEVAQUIN 500 MG ORAL TABLET take one po QD LEVAQUIN 500 MG ORAL TABLET 490536 LEVOFLOXACIN Inactive AZITHROMYCIN 250 MG ORAL TABLET 2 po qd x 1 day, then 1 po q d x 4 days AZITHROMYCIN 250 MG ORAL TABLET 634665 AZITHROMY GIOVANNI Inactive MEDROL 4 MG ORAL TABLET THERAPY PACK 6 tabs on day 1, 5 tabs on day 2, 4 tabs on day 3, 3 tabs on day 4, 2 tabs on day 5, 1 tab on day 6 2013 MEDROL 4 MG ORAL TABLET THERAPY PACK 310555 METHYLPREDNISOLONE [place] ctive CHERATUSSIN AC 100-10 MG/5ML ORAL SYRUP 5ml po q6hr PRN Cough 20 13/04/14 CHERATUSSIN AC 100-10 MG/5ML ORAL SYRUP 000768 GUAIFENE SIN-CODEINE Inactive TRIAMCINOLONE ACETONIDE 0.1 % EXTERNAL CREAM apply three roger es daily prn rash TRIAMCINOLONE ACETONIDE 0.1 % EXTERNAL CREAM 101 4314 TRIAMCINOLONE ACETONIDE Inactive AZITHROMYCIN 250 MG ORAL TABLET 2 po qd x 1 day, then 1 po q d x 4 days AZITHROMYCIN 250 MG ORAL TABLET 216714 AZITHROMY GIOVANNI Inactive MEDROL 4 MG ORAL TABLET THERAPY PACK 6 pills x 1 day, then 5 pills x 1 day then 4 pills x 1 day, then 3 pills x 1 day, then 2 pills x 1 day, then 1 pill x 1 day, then stop MEDROL 4 MG ORAL TABLET THERAPY PACK 934434 METHYLPREDNISOLONE Inactive AMOXICILLIN 500 MG ORAL CAPSULE 1 tab by mouth 3 times daily x 10 days AMOXICILLIN 500 MG ORAL CAPSULE 543859 AMOXICILL IN Inactive AMOXICILLIN 500 MG ORAL CAPSULE 1 tab by mouth 3 times daily x 10 days AMOXICILLIN 500 MG ORAL CAPSULE 818167 AMOXICILL IN Inactive ZITHROMAX 250 MG ORAL TABLET 2 po today, then 1 po q days 2-5 20 12/08/14 ZITHROMAX 250 MG ORAL TABLET 538527 AZITHROMYCIN [place] ctive AUGMENTIN 875-125 MG ORAL TABLET 1 po BID x 10 days 20 13/01/20 AUGMENTIN 875-125 MG ORAL TABLET 844834 AMOXICILLIN-POT CLAVULANATE Inactive ZITHROMAX Z-REYNA 250 MG ORAL TABLET 2 today, then 1 daily for 4 d ays ZITHROMAX Z-REYNA 250 MG ORAL TABLET 043332 AZITHROMYCIN Inactive ZITHROMAX 250 MG ORAL TABLET 2 po today, then 1 po q days 2-5 20 14/03/21 ZITHROMAX 250 MG ORAL TABLET 229459 AZITHROMYCIN [place] ctive ZITHROMAX Z-REYNA 250 MG ORAL TABLET 2 today, then 1 daily for 4 d ays ZITHROMAX Z-REYNA 250 MG ORAL TABLET 571658 AZITHROMYCIN Inactive CEFDINIR 300 MG ORAL CAPSULE 1 po BID x 10 days 06/21 CEFDINIR 300 MG ORAL CAPSULE 837448 CEFDINIR Inactive ZITHROMAX 250 MG ORAL TABLET 2 po today, then 1 po q days 2-5 20 13/08/10 ZITHROMAX 250 MG ORAL TABLET 977669 AZITHROMYCIN [place] ctive LEVAQUIN 500 MG ORAL TABLET 1 tablet by mouth daily 20 13/09/24 LEVAQUIN 500 MG ORAL TABLET 274165 LEVOFLOXACIN Inactive SINGULAIR 10 MG ORAL TABLET 1 po qday for allergies 20 14/01/12 SINGULAIR 10 MG ORAL TABLET 266346 MONTELUKAST SODIUM Inactive AMOXICILLIN 500 MG ORAL CAPSULE 2 po BID x 10 days 201 09/29/08 AMOXICILLIN 500 MG ORAL CAPSULE 403418 AMOXICILLIN Inactive PREDNISONE 20 MG ORAL TABLET 2 tabs daily for 3 days, 1 tab daily for 3 days, 1/2 tab daily for 2 days PREDNISONE 20 MG ORAL T ABLET 103815 PREDNISONE Inactive ZITHROMAX Z-REYNA 250 MG ORAL TABLET 2 today, then 1 daily for 4 d ays ZITHROMAX Z-REYNA 250 MG ORAL TABLET 462541 AZITHROMYCIN Inactive PREDNISONE 20 MG ORAL TABLET 2 tabs daily for 3 days, 1 tab daily for 3 days, 1/2 tab daily for 2 days PREDNISONE 20 MG ORAL T ABLET 027992 PREDNISONE Inactive ZITHROMAX 250 MG ORAL TABLET 2 po today, then 1 po q days 2-5 20 14/09/04 ZITHROMAX 250 MG ORAL TABLET 013615 AZITHROMYCIN [place] [facility] AMOXICILLIN 500 MG ORAL CAPSULE 1 cap by mouth three times a day AMOXICILLIN 500 MG ORAL CAPSULE 562329 AMOXICILLIN Inactive TERBINAFINE HCL 250 MG ORAL TABLET 1 qDay for nail fungus 7 TERBINAFINE HCL 250 MG ORAL TABLET 624206 TERBINAFINE HCL Inact nael AUGMENTIN 875-125 MG ORAL TABLET 1 po BID x 10 days 16/03/22 AUGMENTIN 875-125 MG ORAL TABLET 910584 AMOXICILLIN-POT CLAVULANATE Inactive PREDNISONE 20 MG ORAL TABLET 2 po qd x 5 days PREDNISONE 20 MG ORAL TABLET 194776 PREDNISONE Inactive AZITHROMYCIN 250 MG ORAL TABLET 2 po qd x 1 day, then 1 po q d x 4 days AZITHROMYCIN 250 MG ORAL TABLET 919626 AZITHROMY GIOVANNI Inactive Vital Signs Date Name [...] - Chem istry sodium, serum 139 mmol/L [phone]/03/19 potassium, serum 3.6 mmol/L 3.5-5.2 chloride, serum 100 mmol/L 98-107 carbon dioxide, venous blood 30.3 mmol/L 21.0-32 .0 blood glucose 101 mg/dL 65-110 calcium, serum 9.4 mg/dL 8.5-10.1 urea nitrogen, blood 10 mg/dL 7-18 creatinine, serum 0.96 mg/dL 0.60-1.30 Encounters Code Encounter Date Provider Facility [id number] Vst-Est Level III 11:12:16 CDT Yanet Bess DO [facility] CPT-21484 Level 3 Est. Patient 11:34:49 [facility] Perez Mora MD [facility] CPT-31205 Level 4 Est. Patient 09:51:32 [facility] Carlton rich MD [facility]-23505 Level 3 Est. Patient 10:26:00 [facility] Elise Are [facility] CPT-82058 Level 3 Est. Patient 13:35:41 [facility] Carlton rich MD [facility]-98481 Level 3 Est. Patient 10:03:52 [facility] [employer] Carlton rich MD [facility] CPT-96915 Level 3 Est. Patient 12:17:50 CDT Hugo Restrepo MD [facility] CPT-87291 Level 3 Est. Patient 13:42:38 CDT Elise Are [facility] CPT-82937 Level 3 Est. Patient 13:23:51 CDT Diya cobian [facility] CPT-59183 Level 3 Est. Patient 14:22:19 [facility] [employer] Diya cobian [facility] CPT-38219 Level 3 Est. Patient 10:11:46 CDT Carlton rich MD [facility] CPT-06465 Level 3 Est. Patient 17:29:43 CDT Elise Are [facility] CPT-67495 Level 3 Est. Patient 11:58:06 CDT Elise Are [facility] CPT-23360 Level 4 Est. Patient 14:36:51 CDT Carlton rich MD [facility]-23412 Level 3 Est. Patient 18:16:00 [facility] Blaine HERNANDEZ [facility] CPT-33738 Level 3 Est. Patient 09:45:49 [facility] [employer] Carlton rich MD [facility]-16018 Level 3 Est. Patient 13:19:20 CDT Carlton rich MD [facility]-04538 Level 3 Est. Patient 13:06:43 CDT Ridge tam DO [facility] CPT-76189 Level 3 Est. Patient 10:03:07 CDT Perez Mora MD [facility]-01845 Level 3 Est. Patient 19:50:35 [facility] Carlton rich MD [facility]-73883 Level 4 Est. Patient 18:05:01 [facility] [employer] Carlton rich MD [facility]-16167 Level 3 Est. Patient 10:45:55 [facility] [employer] Hugo Restrepo MD [facility]-49025 Level 3 Est. Patient 14:12:49 CDT Griffin HERNANDEZ [facility] CPT-98669 Level 3 Est. Patient 17:37:24 CDT Carlton rich MD [facility]-18447 Level 3 Est. Patient 16:51:54 CDT Carlton rich MD [facility]-41298 Level 3 Est. Patient 12:18:11 CDT Hugo Restrepo MD [facility]-06297 Level 3 Est. Patient 11:30:25 CDT Marcy crisostomo MD PhD [facility]-04452 Level 3 Est. Patient 12:00:47 [facility] [employer] Carlton rich MD [facility]-02676 Level 3 Est. Patient 16:31:06 [facility] [employer] Carlton rich MD [facility]-67444 Level 3 Est. Patient 16:23:24 [facility] [employer] Ridge W L ee [facility] CPT-86472 Level 3 Est. Patient 12:34:12 CDT Carlton rich MD [facility] CPT-66640 Level 2 Est. Patient 15:43:33 CDT Robi armstrong MD [facility] CPT-97223 Level 4 Est. Patient 14:04:44 CDT Carlton rich MD [facility] CPT-29572 Level 3 Est. Patient 05:47:59 CDT Ridge tam [facility] CPT-57441 Level 3 Est. Patient 13:12:53 [facility] [employer] Carlton rich MD [facility] CPT-28981 Level 3 Est. Patient 14:26:53 CDT Hugo Restrepo MD [facility] Procedures Code Procedure Name Date Entry Date Standard Desc ription CPT-000 Give Appropriate Flu Vaccine 14:14:31 CDT 2 CPT-J1040 Depo Medrol 80 mg (Methyl Prednisolone A cetate) 10:42:44 CDT CPT-J1100 Decadron 8mg (Dexamethasone) 10:42:44 CDT 2 CPT-J0696 Rocephin 1gm Inj Solr 14:32:13 CDT CPT-J1020 Depo Medrol 60 mg (Methyl Prednisolone A cetate) 14:32:13 CDT CPT-J1100 Decadron 6mg (Dexamethasone) 14:32:13 CDT 2 CPT-45085 Hip bilat min 2V w AP pelvis 13:16:20 CDT 2 CPT-26485 Pelvis only 13:07:33 CDT CPT-69808 Spec Collection and Handling Fee 11:25:12 C DT CPT-49784 Fluzone Quadrivalent Intramuscular Suspe nsion 0.5 ML 14:31:55 CDT CPT-89123 Abx/Therapy Injection 13:28:47 [facility] [employer] CPT-J2930 Solu Medrol 125 mg (Methyl Prednisolone Sodium Succinate) 12:00:47 [facility] [employer] CPT-44927 Venipuncture Draw Fee 11:33:31 CDT CPT-09583 EKG Trac and Interp 11:21:09 CDT CPT-13387 Chest 2V Frontal and Lat 11:21:09 CDT 12/15 CPT-00240 Venipuncture Draw Fee 08:02:34 CDT CPT-25813 Chest 2V Frontal and Lat 05:47:59 CDT 06/05
--- OUTSIDE RECORDS SUMMARY | 2019-10-08 09:33 | XMS REPORT | Clinical Summary ---
Author Author Caitlin, Juliana Martinez Organization [facility] Address Unknown Phone Unavailable Allergies, Adverse [...] Hugo Restrepo MD Bronchitis-Acute ICD-466.0 Inactive Hugo doimnguez MD URI - acute ICD-465.9 Inactive Hugo [...] po q d x 4 days AZITHROMYCIN 20137073105 No Longer Active Ridge Bess DO Active PREDNISONE 20 MG ORAL TABLET two tabs by mouth today, then one tab by mouth days two and three and four PREDNISONE 87204339353 Active Arash Bess DO Active PREDNISONE 20 MG ORAL TABLET 2 po qd x 5 days P REDNISONE 37201877905 No Longer Active Perez Mora MD Active PROAIR HFA 108 (90 BASE) MCG/ACT INHALATION AEROSOL SO LUTION 2 puffs four times a day as needed ALBUTEROL SULFATE 37070269502 No Long er Active Becky FUENTES Active ASPIRIN 81 MG ORAL TABLET 1 po qd ASPIRIN 26144260313 Active Carlton Hu MD Active PREDNISONE 20 MG ORAL TABLET 1 tab twice daily for 3 d ay, then one daily for three days PREDNISONE 76560433758 No Longer Active Carlton Hu MD Active AUGMENTIN 875-125 MG ORAL TABLET 1 po BID x 10 days 20 16/03/22 AMOXICILLIN-POT CLAVULANATE 40424106932 No Longer Active Elise Garcia APRN Active TERBINAFINE HCL 250 MG ORAL TABLET 1 qDay for nail fungus 7 TERBINAFINE HCL 28648886968 No Longer Active Carlton Hu MD A ctive TUSSIONEX PENNKINETIC ER 10-8 MG/5ML ORAL SUSPENSION E XTENDED RELEASE 5ml po q12hr PRN Cough HYDROCOD POLST-CHLORPHEN POLST 78615820276 Active Carlton Hu MD Active AMOXICILLIN 500 MG ORAL CAPSULE 1 cap by mouth three times a day AMOXICILLIN 15921606362 No Longer Active Carlton Hu MD Active ELMIRON 100 MG ORAL CAPSULE 2 tablets in the am and 1 tablet at hs PENTOSAN POLYSULFATE SODIUM 68748888660 No Longer Active Robert jade Hu MD Active MUCINEX D 60-600 MG ORAL TABLET EXTENDED RELEASE 12 HOUR 1 t ab po q am PSEUDOEPHEDRINE-GUAIFENESIN 87299796987 No Longer Act nael Carlton Hu MD Active MUCINEX DM MAXIMUM STRENGTH 60-1200 MG ORAL TABLET EXT ENDED RELEASE 12 HOUR 1 tab po q am DEXTROMETHORPHAN-GUAIFENESIN 32817935549 No Longer Active Carlton Hu MD Active TUSSIONEX PENNKINETIC ER 10-8 MG/5ML ORAL SUSPENSION E XTENDED RELEASE 5ml po q12hr PRN Cough HYDROCOD POLST-CHLORPHEN POLST 5 9612285621 No Longer Active Carlton Hu MD Active POTASSIUM CHLORIDE ER 20 MEQ ORAL TABLET EXTENDED RELE ASE Take 1 by mouth 4 times daily for 7 days POTASSIUM CHLORIDE 96998098066 No Longer Active Carlton Hu MD Active ZITHROMAX 250 MG ORAL TABLET 2 po today, then 1 po q days 2-5 14/09/04 AZITHROMYCIN 60967992128 No Longer Active Elise Garcia APRN Active TUSSIONEX PENNKINETIC ER 10-8 MG/5ML ORAL SUSPENSION E XTENDED RELEASE 5 ml twice a day as needed for cough HYDROCOD POLST-CHLORPH EN POLST 08022793688 No Longer Active Elise Garcia APRN Active MONTELUKAST SODIUM 10 MG ORAL TABLET 1 po daily for Allergy MONTELUKAST SODIUM 11601896807 Active Carlton Hu MD Ac tive TUSSIONEX PENNKINETIC ER 10-8 MG/5ML ORAL SUSPENSION E XTENDED RELEASE 5ml po q12hr PRN Cough HYDROCOD POLST-CHLORPHEN POLST 5 8284574440 No Longer Active Hugo Restrepo MD Active GABAPENTIN 100 MG ORAL CAPSULE 1 po BID for fibromyalgia GABAPENTIN 06387375564 Active Carlton Hu MD Active LYRICA 100 MG ORAL CAPSULE Take 1 tab po BID for fibromyalgia 20 11/08/21 PREGABALIN 48829252549 No Longer Active Elise Garcia APRN A ctive PREDNISONE 20 MG ORAL TABLET 2 tabs daily for 3 days, 1 tab daily for 3 days, 1/2 tab daily for 2 days PREDNISONE 23235126784 No Longer Active Venullina Cesarl [employer]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 TEACHER 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 TUSSIONEX PENNKINETIC ER 10-8 MG/5ML ORAL SUSPENSION E XTENDED RELEASE 5 mL PO q 12 hrs PRN cough HYDROCOD POLST-CHLORPHEN POLST 982456 56980 No Longer Active Jillina Frazell [employer]WING TEACHER Active FLUTICASONE PROPIONATE 50 MCG/ACT NASAL SUSPENSION 2 s prays each nostril daily until bottle is empty FLUTICASONE PROPIONATE 427908797 99 No Longer Active Jillina Frazell SEWING TEACHER Active ASMANEX 60 METERED DOSES 220 MCG/INH INHALATION AEROSO L POWDER BREATH ACTIVATED 1 puff bid with rinse after MOMETASONE FUROATE 3990882 4102 No Longer Active Venullina Cesarl SEWING TEACHER Active ZITHROMAX Z-REYNA 250 MG ORAL TABLET 2 today, then 1 daily for 4 d ays AZITHROMYCIN 35966216773 No Longer Active Elise Garcia APRN Active TUSSIONEX PENNKINETIC ER 10-8 MG/5ML ORAL SUSPENSION E XTENDED RELEASE 5ml po q12hr PRN Cough HYDROCOD POLST-CHLORPHEN POLST 5 2836852514 No Longer Active Elise Garcia APRN Active PREDNISONE 20 MG ORAL TABLET 2 tabs daily for 3 days, 1 tab daily for 3 days, 1/2 tab daily for 2 days PREDNISONE 18056445564 No Longer Active Jillina Daphnezell [employer]ING TEACHER Active AMOXICILLIN 500 MG ORAL CAPSULE 2 po BID x 10 days 201 09/29/08 AMOXICILLIN 79437485747 No Longer Active Jillina Frazell SEWING TEACHER Act nael SINGULAIR 10 MG ORAL TABLET 1 po qday for allergies 20 14/01/12 MONTELUKAST SODIUM 47133449017 No Longer Active Carlton Hu MD Active LEVAQUIN 500 MG ORAL TABLET 1 tablet by mouth daily 20 13/09/24 LEVOFLOXACIN 23982894691 No Longer Active Carlton Hu MD Acti ve FLUTICASONE PROPIONATE 50 MCG/ACT NASAL SUSPENSION 2 s prays each nostril daily for 2 weeks, then 1 spray each nostril daily. FLUTICASONE PROPIONATE 20174980809 Active Elisedeirdre Garcia APRN Active ZITHROMAX 250 MG ORAL TABLET 2 po today, then 1 po q days 2-5 20 13/08/10 AZITHROMYCIN 43548524308 No Longer Active Elise Garcia APRN Active XANAX 0.5 MG ORAL TABLET one tablet by mouth daily prn anxiety 2015 ALPRAZOLAM 42327866735 Active ALFREDO Holly Active CYMBALTA 30 MG ORAL CAPSULE DELAYED RELEASE PARTICLES 1 cap by mouth daily for depression DULOXETINE HCL 57983798470 Active Carlton beltrán MD Active CEFDINIR 300 MG ORAL CAPSULE 1 po BID x 10 days CEFDINIR 57346015078 No Longer Active Carlton Hu MD Active ZOCOR 40 MG ORAL TABLET 1 tab by mouth daily SI MVASTATIN 74587932594 No Longer Active Carlton Hu MD Active CYCLOBENZAPRINE HCL 10 MG ORAL TABLET 1 tablet by mouth BID prn had pain CYCLOBENZAPRINE HCL 70899405928 No Longer Active Jayden Hu MD Active LEVOFLOXACIN 500 MG ORAL TABLET 1 tab PO daily x 10 days LEVOFLOXACIN 72781392417 No Longer Active Carlton Hu MD Acti ve PREDNISONE 20 MG ORAL TABLET 3 tab PO qd x 2d, 2 tab P O qd x 2d, 1 tab PO qd x 2d, 1/2 tab PO qd x 2d PREDNISONE 03096260190 No Lo nger Active Carlton Hu MD Active FLUTICASONE PROPIONATE 50 MCG/ACT NASAL SUSPENSION 1 t o 2 sprays each nostril daily FLUTICASONE PROPIONATE 73894367420 No Longer Ac tive Blaine HERNANDEZ Active CHERATUSSIN AC 100-10 MG/5ML ORAL SYRUP 1 tsp by mouth every 4 hours as needed for cough GUAIFENESIN-CODEINE 35519162773 No Longe r Active Blaine HERNANDEZ Active PROMETHAZINE-CODEINE 6.25-10 MG/5ML ORAL SYRUP 1 tsp b y mouth every 6 hours if needed for cough PROMETHAZINE-CODEINE 76097271433 No Longer Active Blaine HERNANDEZ Active CHERATUSSIN AC 100-10 MG/5ML ORAL SYRUP 1 tsp by mouth every 4 hours as needed for cough GUAIFENESIN-CODEINE 47938191330 No Longe r Active Blaine HERNANDEZ Active ZITHROMAX Z-REYNA 250 MG ORAL TABLET 2 today, then 1 daily for 4 d ays AZITHROMYCIN 28369282729 No Longer Active Columba Raida Act nael ZITHROMAX 250 MG ORAL TABLET 2 po today, then 1 po q days 2-5 20 14/03/21 AZITHROMYCIN 07247918961 No Longer Active Carlton Hu MD Active ZITHROMAX Z-REYNA 250 MG ORAL TABLET 2 today, then 1 daily for 4 d ays AZITHROMYCIN 06249306979 No Longer Active Columba Raida Act nael AUGMENTIN 875-125 MG ORAL TABLET 1 po BID x 10 days 13/01/20 AMOXICILLIN-POT CLAVULANATE 53301023548 No Longer Active Diya De Guzman APRN Active ZITHROMAX 250 MG ORAL TABLET 2 po today, then 1 po q days 2-5 12/08/14 AZITHROMYCIN 71159682523 No Longer Active Carlton Hu MD Active TRAMADOL HCL 50 MG ORAL TABLET 1 po tid with ES Tylenol TRAMADOL HCL 15949727789 Active ALFREDO Holly Active PREMARIN 0.625 MG ORAL TABLET TAKE 1 TAB BY MOUTH DAILY ESTROGENS CONJUGATED 83532448937 No Longer Active Ridge Bess DO A ctive CYMBALTA 30 MG ORAL CAPSULE DELAYED RELEASE PARTICLES 1 cap by mouth daily DULOXETINE HCL 54733078144 No Longer Active Ridge Ya ee DO Active AMOXICILLIN 500 MG ORAL CAPSULE 1 tab by mouth 3 times daily x 10 days AMOXICILLIN 16932405122 No Longer Active Carlton bustamante MD Active AMOXICILLIN 500 MG ORAL CAPSULE 1 tab by mouth 3 times daily x 10 days AMOXICILLIN 04995576022 No Longer Active Carlton bustamante MD Active PROMETHAZINE-CODEINE 6.25-10 MG/5ML ORAL SYRUP 1 tsp b y mouth every 8 hours prn cough PROMETHAZINE-CODEINE 14180225436 No Longer Acti ve Carlton Hu MD Active MEDROL 4 MG ORAL TABLET THERAPY PACK 6 pills x 1 day, then 5 pills x 1 day then 4 pills x 1 day, then 3 pills x 1 day, then 2 pills x 1 day, then 1 pill x 1 day, then stop METHYLPREDNISOLONE 38272460752 No Long er Active Perez Mora MD Active AZITHROMYCIN 250 MG ORAL TABLET 2 po qd x 1 day, then 1 po q d x 4 days AZITHROMYCIN 32083522795 No Longer Active Perez Ambriz MD Active SYMBICORT 160-4.5 MCG/ACT INHALATION AEROSOL 2 puffs bid wit h rinse after BUDESONIDE-FORMOTEROL FUMARATE 04738650984 N o Longer Active Perez Mora MD Active LYRICA 75 MG ORAL CAPSULE TAKE 1 CAPSULE BY MOUTH TWICE DAILY PREGABALIN 52108079230 No Longer Active Carlton Hu MD Acti ve TOPAMAX 25 MG ORAL TABLET 1 qHS x 1 week, then 1 BID x 1 week, then 1 qAM and 2 qHS x 1 week, then 2 BID (migraine prevention) T OPIRAMATE 43736385315 No Longer Active Jerica FUENTES Active TOPAMAX 50 MG ORAL TABLET take 1 tab po BID for migraines. 07/02 TOPIRAMATE 77392795194 No Longer Active Jerica FUENTES Active TOPAMAX 100 MG ORAL TABLET Take 1 tablet po bid TO PIRAMATE 83618215324 Active Carlton Hu MD Active TRIAMCINOLONE ACETONIDE 0.1 % EXTERNAL CREAM apply three roger es daily prn rash TRIAMCINOLONE ACETONIDE 26400698208 No Longer Active Carlton Hu MD Active PAXIL 40 MG ORAL TABLET take 1 tab po qday for depression 0 PAROXETINE HCL 92158845142 Active ALFREDO Holly Active CHERATUSSIN AC 100-10 MG/5ML ORAL SYRUP 5ml po q6hr PRN Cough 20 13/04/14 GUAIFENESIN-CODEINE 69370087657 No Longer Active Carlton Hu MD Active MEDROL 4 MG ORAL TABLET THERAPY PACK 6 tabs on day 1, 5 tabs on day 2, 4 tabs on day 3, 3 tabs on day 4, 2 tabs on day 5, 1 tab on day 6 2013 METHYLPREDNISOLONE 38403417316 No Longer Active Perez Mora MD Active AZITHROMYCIN 250 MG ORAL TABLET 2 po qd x 1 day, then 1 po q d x 4 days AZITHROMYCIN 94653991352 No Longer Active Perez Ambriz MD Active PROPRANOLOL HCL 60 MG ORAL TABLET 1 PO Q D PROPRANOLOL HCL 47861691715 No Longer Active Perez Mora MD Activ e CHERATUSSIN AC 100-10 MG/5ML ORAL SYRUP take one tsp po Q 6h ours prn cough GUAIFENESIN-CODEINE 93872956215 No Longer Active Zia Mora MD Active AUGMENTIN 875-125 MG ORAL TABLET 1 tab by mouth twice daily with food AMOXICILLIN-POT CLAVULANATE 80452515408 No Longer Act nael Perez Mora MD Active CHERATUSSIN AC 100-10 MG/5ML ORAL SYRUP 1 tsp by mouth every 4 hours as needed for cough GUAIFENESIN-CODEINE 80407023699 No Longe r Active Hugo Restrepo MD Active ACETAMINOPHEN-CODEINE #3 300-30 MG ORAL TABLET 1 PO Q 4-6 HRS MT N PAIN ACETAMINOPHEN-CODEINE 39623163869 No Longer Active Hugo Restrepo MD Active LEVAQUIN 500 MG ORAL TABLET take one po QD LEVO FLOXACIN 07007832471 No Longer Active Griffin HERNANDEZ Active PREDNISONE 20 MG ORAL TABLET Take 3 tabs daily for 3 d ays, 2 tabs daily for 3 days, 1 tab daily for 3 days, 1/2 tab daily for 3 days 11/07 PREDNISONE 67258060040 No Longer Active Carlton Hu MD Acti ve AVELOX 400 MG ORAL TABLET 1 tab by mouth daily MOXIFLOXACIN HCL 87008139716 No Longer Active Carlton Hu MD Active CHERATUSSIN AC 100-10 MG/5ML ORAL SYRUP 1 tsp by mouth every 4 hours as needed for cough GUAIFENESIN-CODEINE 46626595001 No Longe r Active Hugo Restrepo MD Active AVELOX 400 MG ORAL TABLET 1 tab by mouth daily MOXIFLOXACIN HCL 25720616626 No Longer Active Marcy De La Rosa MD PhD Active TERBINAFINE HCL 250 MG ORAL TABLET 1 qDay T ERBINAFINE HCL 80870776216 No Longer Active Marcy De La Rosa MD PhD Active CHERATUSSIN AC 100-10 MG/5ML ORAL SYRUP 1 tsp by mouth every 4 hours as needed for cough GUAIFENESIN-CODEINE 72709342001 No Longe r Active Marcy De La Rosa MD PhD Active AVELOX 400 MG ORAL TABLET 1 tab by mouth daily MOXIFLOXACIN HCL 09875572303 No Longer Active Marcy De La Rosa MD PhD Active HYDROCODONE-ACETAMINOPHEN 5-325 MG ORAL TABLET 1 po q 6hr PRN co ugh HYDROCODONE-ACETAMINOPHEN 63301046187 No Longer Active Marcy De La Rosa MD PhD Active PREDNISONE 20 MG ORAL TABLET 2 tabs daily for 3 days, 1 tab daily for 3 days, 1/2 tab daily for 2 days PREDNISONE 30671313759 No Longer Active Carlton Hu MD Active CEFDINIR 300 MG ORAL CAPSULE by mouth twice a day 2011 CEFDINIR 89215229535 No Longer Active Carlton Hu MD Acti ve HYDROCHLOROTHIAZIDE 25 MG ORAL TABLET 1 TAB PO DAILY HYDROCHLOROTHIAZIDE 64783513229 Active ALFREDO Holly Ac tive ACETAMINOPHEN-CODEINE #3 300-30 MG ORAL TABLET 1 tablet po q 4-6 hrs prn pain ACETAMINOPHEN-CODEINE 68332017680 No Longer Active Ridge Bess DO Active ZITHROMAX 250 MG ORAL TABLET 2 po today, then 1 po q days 2-5 20 03/07/07 AZITHROMYCIN 53646204683 No Longer Active Carlton Hu MD Active CHERATUSSIN AC 100-10 MG/5ML ORAL SYRUP take 1 tsp po q4-6 h ours prn cough GUAIFENESIN-CODEINE 66603335514 No Longer Active Jayden Hu MD Active ACETAMINOPHEN-CODEINE #3 300-30 MG ORAL TABLET 1 PO Q 4-6 HR PRN PAIN ACETAMINOPHEN-CODEINE 95702401480 No Longer Active Arnol Hu MD Active LORTAB 7.5-500 MG/15ML ORAL ELIXIR 7.5 ml po q 4 hour prn cough HYDROCODONE-ACETAMINOPHEN 22095587312 No Longer Active Carlton Hu MD Active PREDNISONE 20 MG ORAL TABLET 1 po bid 3 days, then 1 po q day 3 days PREDNISONE 09516516466 No Longer Active Carlton Hu MD Active CEFDINIR 300 MG ORAL CAPSULE by mouth twice a day 2011 CEFDINIR 19904858609 No Longer Active Carlton Hu MD Acti ve CEFDINIR 300 MG ORAL CAPSULE by mouth twice a day 2010 CEFDINIR 60748074453 No Longer Active Carlton Hu MD Acti ve CEFDINIR 300 MG ORAL CAPSULE by mouth twice a day 2010 CEFDINIR 40995720010 No Longer Active Carlton Hu MD Acti ve TESSALON PERLES 100 MG ORAL CAPSULE 1 tablet by mouth 3 times daily as needed for cough BENZONATATE 02763368892 No Longer Active Carlton Hu MD Active CEFDINIR 300 MG ORAL CAPSULE by mouth twice a day 2010 CEFDINIR 69189518461 No Longer Active Carlton Hu MD Acti ve ZITHROMAX Z-REYNA 250 MG ORAL TABLET 2 today, then 1 daily for 4 d ays AZITHROMYCIN 51159137234 No Longer Active Hugo Restrepo MD Active TESSALON PERLES 100 MG ORAL CAPSULE 1 tablet by mouth 3 times daily as needed for cough TESSALON PERLES 100 MG ORAL CAPSULE 54684 7 BENZONATATE Inactive PREDNISONE 20 MG ORAL TABLET 1 po bid 3 days, then 1 po q day 3 days PREDNISONE 20 MG ORAL TABLET 296459 PREDNISONE [place] ctive LORTAB 7.5-500 MG/15ML ORAL ELIXIR 7.5 [...] cough CHERATUSSIN AC 100-10 MG/5ML ORAL SYRUP 334690 GUAIFENESIN-CODEINE Inactive ACETAMINOPHEN-CODEINE #3 300-30 MG ORAL TABLET 1 tablet po q 4-6 hrs prn pain ACETAMINOPHEN-CODEINE #3 300-30 MG ORAL TABLET ACETAMINOPHEN-CODEINE Inactive HYDROCODONE-ACETAMINOPHEN 5-325 MG ORAL TABLET 1 po q 6hr PRN co ugh HYDROCODONE-ACETAMINOPHEN 5-325 MG ORAL TABLET 525961 HYDROCODONE-ACETAMINOPHEN Inactive AVELOX 400 MG ORAL TABLET 1 tab by mouth daily AVELOX 400 MG ORAL TABLET 012899 MOXIFLOXACIN HCL Inactive CHERATUSSIN AC 100-10 MG/5ML ORAL SYRUP 1 tsp by mouth every 4 hours as needed for cough CHERATUSSIN AC 100-10 MG/5ML ORAL SYRUP 9 67014 GUAIFENESIN-CODEINE Inactive TERBINAFINE HCL 250 MG ORAL TABLET 1 qDay 07/08 TERBINAFINE HCL 250 MG ORAL TABLET 907809 TERBINAFINE HCL Inactive CHERATUSSIN AC 100-10 MG/5ML ORAL SYRUP 1 tsp by mouth every 4 hours as needed for cough CHERATUSSIN AC 100-10 MG/5ML ORAL SYRUP 9 02313 GUAIFENESIN-CODEINE Inactive ACETAMINOPHEN-CODEINE #3 300-30 MG ORAL TABLET 1 PO Q 4-6 HRS MT N PAIN ACETAMINOPHEN-CODEINE #3 300-30 MG ORAL TABLET ACETAMINOPHEN-CODEINE Inactive CHERATUSSIN AC 100-10 MG/5ML ORAL SYRUP 1 tsp by mouth every 4 hours as needed for cough CHERATUSSIN AC 100-10 MG/5ML ORAL SYRUP 9 04758 GUAIFENESIN-CODEINE Inactive AUGMENTIN 875-125 MG ORAL TABLET 1 tab by mouth twice daily with food AUGMENTIN 875-125 MG ORAL TABLET 237327 AMOXICIL MADELINE-POT CLAVULANATE Inactive CHERATUSSIN AC 100-10 MG/5ML ORAL SYRUP take one tsp po Q 6h ours prn cough CHERATUSSIN AC 100-10 MG/5ML ORAL SYRUP 542138 GUAIFENESIN-CODEINE Inactive PROPRANOLOL HCL 60 MG ORAL TABLET 1 PO Q D PROPRANOLOL HCL 60 MG ORAL TABLET 704744 PROPRANOLOL HCL Inactive TOPAMAX 50 MG ORAL TABLET take 1 tab po BID for migraines. 07/02 TOPAMAX 50 MG ORAL TABLET 227723 TOPIRAMATE Inacti ve TOPAMAX 25 MG ORAL TABLET 1 qHS x 1 week, then 1 BID x 1 week, then 1 qAM and 2 qHS x 1 week, then 2 BID (migraine prevention) TOPAMAX 25 MG ORAL TABLET 119312 TOPIRAMATE Inactive LYRICA 75 MG ORAL CAPSULE TAKE 1 CAPSULE BY MOUTH TWICE DAILY LYRICA 75 MG ORAL CAPSULE PREGABALIN Inactive SYMBICORT 160-4.5 MCG/ACT INHALATION AEROSOL 2 puffs bid wit h rinse after SYMBICORT 160-4.5 MCG/ACT INHALATION AEROSOL BUDESONIDE- FORMOTEROL FUMARATE Inactive PROMETHAZINE-CODEINE 6.25-10 MG/5ML ORAL SYRUP 1 tsp b y mouth every 8 hours prn cough PROMETHAZINE-CODEINE 6.25-10 MG/ 5ML ORAL SYRUP 570502 PROMETHAZINE-CODEINE Inactive CYMBALTA 30 MG ORAL CAPSULE DELAYED RELEASE PARTICLES 1 cap by mouth daily CYMBALTA 30 MG ORAL CAPSULE DELAYED RELE ASE PARTICLES 729310 DULOXETINE HCL Inactive PREMARIN 0.625 MG ORAL TABLET TAKE 1 TAB BY MOUTH DAILY PREMARIN 0.625 MG ORAL TABLET ESTROGENS CONJUGATED Inactive CHERATUSSIN AC 100-10 MG/5ML ORAL SYRUP 1 tsp by mouth every 4 hours as needed for cough CHERATUSSIN AC 100-10 MG/5ML ORAL SYRUP 9 40548 GUAIFENESIN-CODEINE Inactive PROMETHAZINE-CODEINE 6.25-10 MG/5ML ORAL SYRUP 1 tsp b y mouth every 6 hours if needed for cough PROMETHAZINE-CODEINE 6.25-10 MG/5ML ORAL SYRUP 810286 PROMETHAZINE-CODEINE Inactive CHERATUSSIN AC 100-10 MG/5ML ORAL SYRUP 1 tsp by mouth every 4 hours as needed for cough CHERATUSSIN AC 100-10 MG/5ML ORAL SYRUP 9 52213 GUAIFENESIN-CODEINE Inactive FLUTICASONE PROPIONATE 50 MCG/ACT NASAL SUSPENSION 1 t o 2 sprays each nostril daily FLUTICASONE PROPIONATE 50 MCG/AC T NASAL SUSPENSION 8126671 FLUTICASONE PROPIONATE Inactive PREDNISONE 20 MG ORAL TABLET 3 tab PO qd x 2d, 2 tab P O qd x 2d, 1 tab PO qd x 2d, 1/2 tab PO qd x 2d PREDNISONE 20 MG ORAL TAB LET 468393 PREDNISONE Inactive LEVOFLOXACIN 500 MG ORAL TABLET 1 tab PO daily x 10 days LEVOFLOXACIN 500 MG ORAL TABLET 050403 LEVOFLOXACIN Inactive CYCLOBENZAPRINE HCL 10 MG ORAL TABLET 1 tablet by mouth BID prn had pain CYCLOBENZAPRINE HCL 10 MG ORAL TABLET 237843 CYCLOBENZAPRINE HCL Inactive ZOCOR 40 MG ORAL TABLET 1 tab by mouth daily 4 ZOCOR 40 MG ORAL TABLET 937564 SIMVASTATIN Inactive TUSSIONEX PENNKINETIC ER 10-8 MG/5ML [...] FLUTICASONE PROPIO EFE 50 MCG/ACT NASAL SUSPENSION 1758411 FLUTICASONE PROPIONATE Inactive TUSSIONEX PENNKINETIC ER 10-8 [...] three days PREDNISONE 20 MG ORAL TABLET 920149 PREDNIS ONE Inactive PROAIR HFA 108 (90 BASE) MCG/ACT INHALATION AEROSOL SO LUTION 2 puffs four times a day as needed PROAIR HFA 108 (90 B ASE) MCG/ACT INHALATION AEROSOL SOLUTION ALBUTEROL SULFATE Inactive ZITHROMAX Z-REYNA 250 MG ORAL TABLET 2 today, then 1 daily for 4 d ays ZITHROMAX Z-REYNA 250 MG ORAL TABLET 575679 AZITHROMYCIN Inactive CEFDINIR 300 MG ORAL CAPSULE by mouth twice a day 2010 CEFDINIR 300 MG ORAL CAPSULE 499687 CEFDINIR Inactive CEFDINIR 300 MG ORAL CAPSULE by mouth twice a day 2010 CEFDINIR 300 MG ORAL CAPSULE 940400 CEFDINIR Inactive CEFDINIR 300 MG ORAL CAPSULE by mouth twice a day 2010 CEFDINIR 300 MG ORAL CAPSULE 120458 CEFDINIR Inactive CEFDINIR 300 MG ORAL CAPSULE by mouth twice a day 2011 CEFDINIR 300 MG ORAL CAPSULE 340409 CEFDINIR Inactive ZITHROMAX 250 MG ORAL TABLET 2 po today, then 1 po q days 2-5 20 03/07/07 ZITHROMAX 250 MG ORAL TABLET 493557 AZITHROMYCIN [place] ctive CEFDINIR 300 MG ORAL CAPSULE by mouth twice a day 2011 CEFDINIR 300 MG ORAL CAPSULE 004541 CEFDINIR Inactive PREDNISONE 20 MG ORAL TABLET 2 tabs daily for 3 days, 1 tab daily for 3 days, 1/2 tab daily for 2 days PREDNISONE 20 MG ORAL T ABLET 815172 PREDNISONE Inactive AVELOX 400 MG ORAL TABLET 1 tab by mouth daily AVELOX 400 MG ORAL TABLET 463299 MOXIFLOXACIN HCL Inactive AVELOX 400 MG ORAL TABLET 1 tab by mouth daily AVELOX 400 MG ORAL TABLET 465672 MOXIFLOXACIN HCL Inactive PREDNISONE 20 MG ORAL TABLET Take 3 tabs daily for 3 d ays, 2 tabs daily for 3 days, 1 tab daily for 3 days, 1/2 tab daily for 3 days 11/07 PREDNISONE 20 MG ORAL TABLET 000261 PREDNISONE Inactive LEVAQUIN 500 MG ORAL TABLET take one po QD LEVAQUIN 500 MG ORAL TABLET 017914 LEVOFLOXACIN Inactive AZITHROMYCIN 250 MG ORAL TABLET 2 po qd x 1 day, then 1 po q d x 4 days AZITHROMYCIN 250 MG ORAL TABLET 865239 AZITHROMY GIOVANNI Inactive MEDROL 4 MG ORAL TABLET THERAPY PACK 6 tabs on day 1, 5 tabs on day 2, 4 tabs on day 3, 3 tabs on day 4, 2 tabs on day 5, 1 tab on day 6 2013 MEDROL 4 MG ORAL TABLET THERAPY PACK 995176 METHYLPREDNISOLONE [place] ctive CHERATUSSIN AC 100-10 MG/5ML ORAL SYRUP 5ml po q6hr PRN Cough 20 13/04/14 CHERATUSSIN AC 100-10 MG/5ML ORAL SYRUP 656516 GUAIFENE SIN-CODEINE Inactive TRIAMCINOLONE ACETONIDE 0.1 % EXTERNAL CREAM apply three roger es daily prn rash TRIAMCINOLONE ACETONIDE 0.1 % EXTERNAL CREAM 101 4314 TRIAMCINOLONE ACETONIDE Inactive AZITHROMYCIN 250 MG ORAL TABLET 2 po qd x 1 day, then 1 po q d x 4 days AZITHROMYCIN 250 MG ORAL TABLET 593647 AZITHROMY GIOVANNI Inactive MEDROL 4 MG ORAL TABLET THERAPY PACK 6 pills x 1 day, then 5 pills x 1 day then 4 pills x 1 day, then 3 pills x 1 day, then 2 pills x 1 day, then 1 pill x 1 day, then stop MEDROL 4 MG ORAL TABLET THERAPY PACK 282345 METHYLPREDNISOLONE Inactive AMOXICILLIN 500 MG ORAL CAPSULE 1 tab by mouth 3 times daily x 10 days AMOXICILLIN 500 MG ORAL CAPSULE 901200 AMOXICILL IN Inactive AMOXICILLIN 500 MG ORAL CAPSULE 1 tab by mouth 3 times daily x 10 days AMOXICILLIN 500 MG ORAL CAPSULE 475809 AMOXICILL IN Inactive ZITHROMAX 250 MG ORAL TABLET 2 po today, then 1 po q days 2-5 20 12/08/14 ZITHROMAX 250 MG ORAL TABLET 005398 AZITHROMYCIN [place] ctive AUGMENTIN 875-125 MG ORAL TABLET 1 po BID x 10 days 20 13/01/20 AUGMENTIN 875-125 MG ORAL TABLET 044596 AMOXICILLIN-POT CLAVULANATE Inactive ZITHROMAX Z-REYNA 250 MG ORAL TABLET 2 today, then 1 daily for 4 d ays ZITHROMAX Z-REYNA 250 MG ORAL TABLET 039117 AZITHROMYCIN Inactive ZITHROMAX 250 MG ORAL TABLET 2 po today, then 1 po q days 2-5 20 14/03/21 ZITHROMAX 250 MG ORAL TABLET 297723 AZITHROMYCIN [place] ctive ZITHROMAX Z-REYNA 250 MG ORAL TABLET 2 today, then 1 daily for 4 d ays ZITHROMAX Z-REYNA 250 MG ORAL TABLET 252661 AZITHROMYCIN Inactive CEFDINIR 300 MG ORAL CAPSULE 1 po BID x 10 days 06/21 CEFDINIR 300 MG ORAL CAPSULE 850030 CEFDINIR Inactive ZITHROMAX 250 MG ORAL TABLET 2 po today, then 1 po q days 2-5 20 13/08/10 ZITHROMAX 250 MG ORAL TABLET 809747 AZITHROMYCIN [place] ctive LEVAQUIN 500 MG ORAL TABLET 1 tablet by mouth daily 20 13/09/24 LEVAQUIN 500 MG ORAL TABLET 130449 LEVOFLOXACIN Inactive SINGULAIR 10 MG ORAL TABLET 1 po qday for allergies 20 14/01/12 SINGULAIR 10 MG ORAL TABLET 680315 MONTELUKAST SODIUM Inactive AMOXICILLIN 500 MG ORAL CAPSULE 2 po BID x 10 days 201 09/29/08 AMOXICILLIN 500 MG ORAL CAPSULE 308697 AMOXICILLIN Inactive PREDNISONE 20 MG ORAL TABLET 2 tabs daily for 3 days, 1 tab daily for 3 days, 1/2 tab daily for 2 days PREDNISONE 20 MG ORAL T ABLET 626963 PREDNISONE Inactive ZITHROMAX Z-REYNA 250 MG ORAL TABLET 2 today, then 1 daily for 4 d ays ZITHROMAX Z-REYNA 250 MG ORAL TABLET 512662 AZITHROMYCIN Inactive PREDNISONE 20 MG ORAL TABLET 2 tabs daily for 3 days, 1 tab daily for 3 days, 1/2 tab daily for 2 days PREDNISONE 20 MG ORAL T ABLET 676620 PREDNISONE Inactive ZITHROMAX 250 MG ORAL TABLET 2 po today, then 1 po q days 2-5 20 14/09/04 ZITHROMAX 250 MG ORAL TABLET 439640 AZITHROMYCIN Greer ctive AMOXICILLIN 500 MG ORAL CAPSULE 1 cap by mouth three times a day AMOXICILLIN 500 MG ORAL CAPSULE 637449 AMOXICILLIN Inactive TERBINAFINE HCL 250 MG ORAL TABLET 1 qDay for nail fungus 7 TERBINAFINE HCL 250 MG ORAL TABLET 849578 TERBINAFINE HCL Inact nael AUGMENTIN 875-125 MG ORAL TABLET 1 po BID x 10 days 16/03/22 AUGMENTIN 875-125 MG ORAL TABLET 724869 AMOXICILLIN-POT CLAVULANATE Inactive PREDNISONE 20 MG ORAL TABLET 2 po qd x 5 days PREDNISONE 20 MG ORAL TABLET 714016 PREDNISONE Inactive AZITHROMYCIN 250 MG ORAL TABLET 2 po qd x 1 day, then 1 po q d x 4 days AZITHROMYCIN 250 MG ORAL TABLET 479511 AZITHROMY GIOVANNI Inactive Vital Signs Date Name [...] - Chem istry sodium, serum 139 mmol/L [id number] 1332/03/19 potassium, serum 3.6 mmol/L 3.5-5.2 chloride, serum 100 mmol/L 98-107 carbon dioxide, venous blood 30.3 mmol/L 21.0-32 .0 blood glucose 101 mg/dL 65-110 calcium, serum 9.4 mg/dL 8.5-10.1 urea nitrogen, blood 10 mg/dL 7-18 creatinine, serum 0.96 mg/dL 0.60-1.30 Encounters Code Encounter Date Provider Facility CPT-80443 [id number] Vst-Est Level III 11:12:16 CDT Yanet Bess DO [facility] CPT-58373 Level 3 Est. Patient 11:34:49 [employer] Perez Mora MD [facility] CPT-51118 Level 4 Est. Patient 09:51:32 [employer]NAGER Carlton rich MD [facility] CPT-96993 Level 3 Est. Patient 10:26:00 [employer] MANAGER Elise Are [facility] CPT-80996 Level 3 Est. Patient 13:35:41 [employer] MANAGER Carlton rich MD [facility]-13015 Level 3 Est. Patient 10:03:52 [employer] MANAGER Carlton rich MD [facility]-98576 Level 3 Est. Patient 12:17:50 CDT Hugo Restrepo MD [facility] CPT-88338 Level 3 Est. Patient 13:42:38 CDT Elise Are [facility] CPT-76457 Level 3 Est. Patient 13:23:51 CDT Diya cobian [facility]-53084 Level 3 Est. Patient 14:22:19 [employer] MANAGER Diya cobian [facility] CPT-45714 Level 3 Est. Patient 10:11:46 CDT Carlton rich MD [facility]-87898 Level 3 Est. Patient 17:29:43 CDT Elise Are [facility] CPT-67728 Level 3 Est. Patient 11:58:06 CDT Elise Are [facility] CPT-37741 Level 4 Est. Patient 14:36:51 CDT Carlton rich MD [facility] CPT-69856 Level 3 Est. Patient 18:16:00 [employer] MANAGER Blaine W Cloven [facility] CPT-91255 Level 3 Est. Patient 09:45:49 [employer] MANAGER Carlton rich MD [facility] CPT-30628 Level 3 Est. Patient 13:19:20 CDT Carlton rich MD [facility] CPT-87503 Level 3 Est. Patient 13:06:43 CDT Ridge tam DO [facility] CPT-00693 Level 3 Est. Patient 10:03:07 CDT Perez Mora MD [facility] CPT-45994 Level 3 Est. Patient 19:50:35 [employer]NAGER Carlton rich MD [facility] CPT-86433 Level 4 Est. Patient 18:05:01 [employer]NAGER Carlton rich MD [facility] CPT-12333 Level 3 Est. Patient 10:45:55 [employer] MANAGER Hugo Restrepo MD [facility] CPT-67077 Level 3 Est. Patient 14:12:49 CDT Griffin lincoln [facility] CPT-12247 Level 3 Est. Patient 17:37:24 CDT Carlton rich MD [facility] CPT-83852 Level 3 Est. Patient 16:51:54 CDT Carlton rich MD [facility] CPT-16729 Level 3 Est. Patient 12:18:11 CDT Hugo Restrepo MD [facility] CPT-77117 Level 3 Est. Patient 11:30:25 CDT Marcy crisostomo MD PhD [facility]-58896 Level 3 Est. Patient 12:00:47 [employer]NAGER Carlton rich MD [facility] CPT-93122 Level 3 Est. Patient 16:31:06 [employer] MANAGER Carlton rich MD [facility] CPT-64207 Level 3 Est. Patient 16:23:24 C[employer]OURCES MANAGER Ridge tam [facility] CPT-48344 Level 3 Est. Patient 12:34:12 CDT Carlton rich MD [facility] CPT-48696 Level 2 Est. Patient 15:43:33 CDT Robi armstrong MD [facility] CPT-46519 Level 4 Est. Patient 14:04:44 CDT Carlton rich MD [facility] CPT-75211 Level 3 Est. Patient 05:47:59 CDT Ridge tam [facility] CPT-26651 Level 3 Est. Patient 13:12:53 [employer]NAGER Carlton rich MD [facility] CPT-62470 Level 3 Est. Patient 14:26:53 CDT Hugo Restrepo MD [facility] Procedures Code Procedure Name Date Entry Date Standard Desc ription CPT-000 Give Appropriate Flu Vaccine 14:14:31 CDT CPT-J1040 Depo Medrol 80 mg (Methyl Prednisolone A cetate) 10:42:44 CDT CPT-J1100 Decadron 8mg (Dexamethasone) 10:42:44 CDT 2 CPT-J0696 Rocephin 1gm Inj Solr 14:32:13 CDT CPT-J1020 Depo Medrol 60 mg (Methyl Prednisolone A cetate) 14:32:13 CDT CPT-J1100 Decadron 6mg (Dexamethasone) 14:32:13 CDT 2 CPT-77009 Hip bilat min 2V w AP pelvis 13:16:20 CDT 2 CPT-64477 Pelvis only 13:07:33 CDT CPT-18603 Spec Collection and Handling Fee 11:25:12 C DT CPT-83532 Fluzone Quadrivalent Intramuscular Suspe nsion 0.5 ML 14:31:55 CDT CPT-68053 Abx/Therapy Injection 13:28:47 [employer]NAGER CPT-J2930 Solu Medrol 125 mg (Methyl Prednisolone Sodium Succinate) 12:00:47 [employer] MANAGER CPT-20425 Venipuncture Draw Fee 11:33:31 CDT CPT-13561 EKG Trac and Interp 11:21:09 CDT CPT-58292 Chest 2V Frontal and Lat 11:21:09 CDT 12/15 CPT-07281 Venipuncture Draw Fee 08:02:34 CDT CPT-20052 Chest 2V Frontal and Lat 05:47:59 CDT 06/05
--- OUTSIDE RECORDS SUMMARY | 2019-10-08 09:34 | XMS REPORT | Clinical Summary ---
[...] eczema, unspecified cause SINUSITIS, ACUTE 461.9 Resolved Huog Restrepo MD Acute sinusitis, unspecified CALF PAIN, [...] po q d x 4 days AZITHROMYCIN [id number] No Longer Active Ridge Bess DO Active PREDNISONE 20 MG ORAL TABLET two tabs by mouth today, then one tab by mouth days two and three and four PREDNISONE 63286097732 Active B basil Bess DO Active PREDNISONE 20 MG ORAL TABLET 2 po qd x 5 days P REDNISONE 97428545578 No Longer Active Perez Mora MD Active PROAIR HFA 108 (90 BASE) MCG/ACT INHALATION AEROSOL SO LUTION 2 puffs four times a day as needed ALBUTEROL SULFATE 93225155447 No Long er Active Becky FUENTES Active ASPIRIN 81 MG ORAL TABLET 1 po qd ASPIRIN 79194359461 Active Carlton Hu MD Active PREDNISONE 20 MG ORAL TABLET 1 tab twice daily for 3 d ay, then one daily for three days PREDNISONE 31487759026 No Longer Active Carlton Hu MD Active AUGMENTIN 875-125 MG ORAL TABLET 1 po BID x 10 days 20 16/03/22 AMOXICILLIN-POT CLAVULANATE 54315992643 No Longer Active Elise Garcia APRN Active TERBINAFINE HCL 250 MG ORAL TABLET 1 qDay for nail fungus 7 TERBINAFINE HCL 08208574015 No Longer Active Carlton Hu MD A ctive TUSSIONEX PENNKINETIC ER 10-8 MG/5ML ORAL SUSPENSION E XTENDED RELEASE 5ml po q12hr PRN Cough HYDROCOD POLST-CHLORPHEN POLST 85215549915 Active Ridge Bess DO Active AMOXICILLIN 500 MG ORAL CAPSULE 1 cap by mouth three times a day AMOXICILLIN 79382860960 No Longer Active Carlton Hu MD Active ELMIRON 100 MG ORAL CAPSULE 2 tablets in the am and 1 tablet at hs PENTOSAN POLYSULFATE SODIUM 27774081744 No Longer Active Rboert Hu MD Active MUCINEX D 60-600 MG ORAL TABLET EXTENDED RELEASE 12 HOUR 1 t ab po q am PSEUDOEPHEDRINE-GUAIFENESIN 61049206125 No Longer Act nale Carlton Hu MD Active MUCINEX DM MAXIMUM STRENGTH 60-1200 MG ORAL TABLET EXT ENDED RELEASE 12 HOUR 1 tab po q am DEXTROMETHORPHAN-GUAIFENESIN 26138150627 No Longer Active Carlton Hu MD Active TUSSIONEX PENNKINETIC ER 10-8 MG/5ML ORAL SUSPENSION E XTENDED RELEASE 5ml po q12hr PRN Cough HYDROCOD POLST-CHLORPHEN POLST 5 2466523549 No Longer Active Carlton Hu MD Active POTASSIUM CHLORIDE ER 20 MEQ ORAL TABLET EXTENDED RELE ASE Take 1 by mouth 4 times daily for 7 days POTASSIUM CHLORIDE 25873199828 No Longer Active Carlton Hu MD Active ZITHROMAX 250 MG ORAL TABLET 2 po today, then 1 po q days 2-5 20 14/09/04 AZITHROMYCIN 53630484086 No Longer Active Elise Garcia APRN Active TUSSIONEX PENNKINETIC ER 10-8 MG/5ML ORAL SUSPENSION E XTENDED RELEASE 5 ml twice a day as needed for cough HYDROCOD POLST-CHLORPH EN POLST 58652233621 No Longer Active Elise Garcia APRN Active MONTELUKAST SODIUM 10 MG ORAL TABLET 1 po daily for Allergy MONTELUKAST SODIUM 97563060391 Active Carlton Hu MD Ac tive TUSSIONEX PENNKINETIC ER 10-8 MG/5ML ORAL SUSPENSION E XTENDED RELEASE 5ml po q12hr PRN Cough HYDROCOD POLST-CHLORPHEN POLST 5 3108427237 No Longer Active Hugo Restrepo MD Active GABAPENTIN 100 MG ORAL CAPSULE 1 po BID for fibromyalgia GABAPENTIN 84726771291 Active Carlton Hu MD Active LYRICA 100 MG ORAL CAPSULE Take 1 tab po BID for fibromyalgia 20 11/08/21 PREGABALIN 10403005936 No Longer Active Elise Arell SECURITIES CONSULTANT A ctive PREDNISONE 20 MG ORAL TABLET 2 tabs daily for 3 days, 1 tab daily for 3 days, 1/2 tab daily for 2 days PREDNISONE 27882586805 No Longer Active Jillina Frazell SECURITIES CONSULTANT Active TUSSIONEX PENNKINETIC ER 10-8 MG/5ML ORAL SUSPENSION E XTENDED RELEASE 5 mL PO q 12 hrs PRN cough HYDROCOD POLST-CHLORPHEN POLST 610958 69532 No Longer Active Jillina Frazell SECURITIES CONSULTANT Active FLUTICASONE PROPIONATE 50 MCG/ACT NASAL SUSPENSION 2 s prays each nostril daily until bottle is empty FLUTICASONE PROPIONATE 761577395 99 No Longer Active Jillina Frazell SECURITIES CONSULTANT Active ASMANEX 60 METERED DOSES 220 MCG/INH INHALATION AEROSO L POWDER BREATH ACTIVATED 1 puff bid with rinse after MOMETASONE FUROATE 9629734 4102 No Longer Active Jillina Frazell SECURITIES CONSULTANT Active ZITHROMAX Z-REYNA 250 MG ORAL TABLET 2 today, then 1 daily for 4 d ays AZITHROMYCIN 67731074912 No Longer Active Elise Arell SECURITIES CONSULTANT Active TUSSIONEX PENNKINETIC ER 10-8 MG/5ML ORAL SUSPENSION E XTENDED RELEASE 5ml po q12hr PRN Cough HYDROCOD POLST-CHLORPHEN POLST 5 4774398769 No Longer Active Elise Arell SECURITIES CONSULTANT Active PREDNISONE 20 MG ORAL TABLET 2 tabs daily for 3 days, 1 tab daily for 3 days, 1/2 tab daily for 2 days PREDNISONE 10916383937 No Longer Active Jillina Frazell SECURITIES CONSULTANT Active AMOXICILLIN 500 MG ORAL CAPSULE 2 po BID x 10 days 201 09/29/08 AMOXICILLIN 27838719335 No Longer Active Jillina Frazell SECURITIES CONSULTANT Act anel SINGULAIR 10 MG ORAL TABLET 1 po qday for allergies 20 14/01/12 MONTELUKAST SODIUM 74786808329 No Longer Active Carlton Hu MD Active LEVAQUIN 500 MG ORAL TABLET 1 tablet by mouth daily 20 13/09/24 LEVOFLOXACIN 17093266581 No Longer Active Carlton Hu MD Acti ve FLUTICASONE PROPIONATE 50 MCG/ACT NASAL SUSPENSION 2 s prays each nostril daily for 2 weeks, then 1 spray each nostril daily. FLUTICASONE PROPIONATE 52636111580 Active Elise Areseema SECURITIES CONSULTANT Active ZITHROMAX 250 MG ORAL TABLET 2 po today, then 1 po q days 2-5 20 13/08/10 AZITHROMYCIN 75560279072 No Longer Active Elise Garcia SECURITIES CONSULTANT Active XANAX 0.5 MG ORAL TABLET one tablet by mouth daily prn anxiety 2015 ALPRAZOLAM 79710696682 Active ALFREDO Holly Active CYMBALTA 30 MG ORAL CAPSULE DELAYED RELEASE PARTICLES 1 cap by mouth daily for depression DULOXETINE HCL 41724128380 Active Carlton beltrán MD Active CEFDINIR 300 MG ORAL CAPSULE 1 po BID x 10 days CEFDINIR 85337913524 No Longer Active Carlton Hu MD Active ZOCOR 40 MG ORAL TABLET 1 tab by mouth daily SI MVASTATIN 22113404016 No Longer Active Carlton Hu MD Active CYCLOBENZAPRINE HCL 10 MG ORAL TABLET 1 tablet by mouth BID prn had pain CYCLOBENZAPRINE HCL 03797888732 No Longer Active Jayden Hu MD Active LEVOFLOXACIN 500 MG ORAL TABLET 1 tab PO daily x 10 days LEVOFLOXACIN 02194039408 No Longer Active Carlton Hu MD Acti ve PREDNISONE 20 MG ORAL TABLET 3 tab PO qd x 2d, 2 tab P O qd x 2d, 1 tab PO qd x 2d, 1/2 tab PO qd x 2d PREDNISONE 33823077964 No Lo nger Active Carlton Hu MD Active FLUTICASONE PROPIONATE 50 MCG/ACT NASAL SUSPENSION 1 t o 2 sprays each nostril daily FLUTICASONE PROPIONATE 72655248029 No Longer Ac tive Blaine HERNANDEZ Active CHERATUSSIN AC 100-10 MG/5ML ORAL SYRUP 1 tsp by mouth every 4 hours as needed for cough GUAIFENESIN-CODEINE 15094851205 No Longe r Active Blaine HERNANDEZ Active PROMETHAZINE-CODEINE 6.25-10 MG/5ML ORAL SYRUP 1 tsp b y mouth every 6 hours if needed for cough PROMETHAZINE-CODEINE 50576892934 No Longer Active Blaine HERNANDEZ Active CHERATUSSIN AC 100-10 MG/5ML ORAL SYRUP 1 tsp by mouth every 4 hours as needed for cough GUAIFENESIN-CODEINE 25575789544 No Longe r Active Blaine HERNANDEZ Active ZITHROMAX Z-REYNA 250 MG ORAL TABLET 2 today, then 1 daily for 4 d ays AZITHROMYCIN 88963187601 No Longer Active Columba Raida Act nael ZITHROMAX 250 MG ORAL TABLET 2 po today, then 1 po q days 2-5 20 14/03/21 AZITHROMYCIN 75068016485 No Longer Active Carlton Hu MD Active ZITHROMAX Z-REYNA 250 MG ORAL TABLET 2 today, then 1 daily for 4 d ays AZITHROMYCIN 19038707988 No Longer Active Columba Raida Act nael AUGMENTIN 875-125 MG ORAL TABLET 1 po BID x 10 days 13/01/20 AMOXICILLIN-POT CLAVULANATE 59784863642 No Longer Active Diya De Guzman APRN Active ZITHROMAX 250 MG ORAL TABLET 2 po today, then 1 po q days 2-5 20 12/08/14 AZITHROMYCIN 46811274986 No Longer Active Carlton Hu MD Active TRAMADOL HCL 50 MG ORAL TABLET 1 po tid with ES Tylenol TRAMADOL HCL 06359400427 Active ALFREDO Holly Active PREMARIN 0.625 MG ORAL TABLET TAKE 1 TAB BY MOUTH DAILY ESTROGENS CONJUGATED 43584432953 No Longer Active Ridge W Shahriar DO A ctive CYMBALTA 30 MG ORAL CAPSULE DELAYED RELEASE PARTICLES 1 cap by mouth daily DULOXETINE HCL 60914349736 No Longer Active Ridge Ya ee DO Active AMOXICILLIN 500 MG ORAL CAPSULE 1 tab by mouth 3 times daily x 10 days AMOXICILLIN 20445773780 No Longer Active Carlton bustamante MD Active AMOXICILLIN 500 MG ORAL CAPSULE 1 tab by mouth 3 times daily x 10 days AMOXICILLIN 71857025265 No Longer Active Carlton bustamante MD Active PROMETHAZINE-CODEINE 6.25-10 MG/5ML ORAL SYRUP 1 tsp b y mouth every 8 hours prn cough PROMETHAZINE-CODEINE 59951920216 No Longer Acti ve Carlton Hu MD Active MEDROL 4 MG ORAL TABLET THERAPY PACK 6 pills x 1 day, then 5 pills x 1 day then 4 pills x 1 day, then 3 pills x 1 day, then 2 pills x 1 day, then 1 pill x 1 day, then stop METHYLPREDNISOLONE 52896819370 No Long er Active Perez Mora MD Active AZITHROMYCIN 250 MG ORAL TABLET 2 po qd x 1 day, then 1 po q d x 4 days AZITHROMYCIN 68636769487 No Longer Active Perez Ambriz MD Active SYMBICORT 160-4.5 MCG/ACT INHALATION AEROSOL 2 puffs bid wit h rinse after BUDESONIDE-FORMOTEROL FUMARATE 80731809233 N o Longer Active Perez Mora MD Active LYRICA 75 MG ORAL CAPSULE TAKE 1 CAPSULE BY MOUTH TWICE DAILY PREGABALIN 17067537203 No Longer Active Carlton Hu MD Acti ve TOPAMAX 25 MG ORAL TABLET 1 qHS x 1 week, then 1 BID x 1 week, then 1 qAM and 2 qHS x 1 week, then 2 BID (migraine prevention) T OPIRAMATE 54304403030 No Longer Active Jerica FUENTES Active TOPAMAX 50 MG ORAL TABLET take 1 tab po BID for migraines. 07/02 TOPIRAMATE 10894067894 No Longer Active Jerica FUENTES Active TOPAMAX 100 MG ORAL TABLET Take 1 tablet po bid TO PIRAMATE 70364310296 Active Carlton Hu MD Active TRIAMCINOLONE ACETONIDE 0.1 % EXTERNAL CREAM apply three roger es daily prn rash TRIAMCINOLONE ACETONIDE 53126347487 No Longer Active Carlton Hu MD Active PAXIL 40 MG ORAL TABLET take 1 tab po qday for depression 0 PAROXETINE HCL 15055704101 Active Perez Mora MD Active CHERATUSSIN AC 100-10 MG/5ML ORAL SYRUP 5ml po q6hr PRN Cough 20 13/04/14 GUAIFENESIN-CODEINE 99013064156 No Longer Active Carlton Hu MD Active MEDROL 4 MG ORAL TABLET THERAPY PACK 6 tabs on day 1, 5 tabs on day 2, 4 tabs on day 3, 3 tabs on day 4, 2 tabs on day 5, 1 tab on day 6 2013 METHYLPREDNISOLONE 27684638054 No Longer Active Perez Mora MD Active AZITHROMYCIN 250 MG ORAL TABLET 2 po qd x 1 day, then 1 po q d x 4 days AZITHROMYCIN 94824231366 No Longer Active Perez Ambriz MD Active PROPRANOLOL HCL 60 MG ORAL TABLET 1 PO Q D PROPRANOLOL HCL 39719884632 No Longer Active Perez Mora MD Activ e CHERATUSSIN AC 100-10 MG/5ML ORAL SYRUP take one tsp po Q 6h ours prn cough GUAIFENESIN-CODEINE 14229863514 No Longer Active Zia Mora MD Active AUGMENTIN 875-125 MG ORAL TABLET 1 tab by mouth twice daily with food AMOXICILLIN-POT CLAVULANATE 62714799182 No Longer Act nael Perez Mora MD Active CHERATUSSIN AC 100-10 MG/5ML ORAL SYRUP 1 tsp by mouth every 4 hours as needed for cough GUAIFENESIN-CODEINE 30863363657 No Longe r Active Hugo Restrepo MD Active ACETAMINOPHEN-CODEINE #3 300-30 MG ORAL TABLET 1 PO Q 4-6 HRS MD N PAIN ACETAMINOPHEN-CODEINE 77839225207 No Longer Active Hugo Restrepo MD Active LEVAQUIN 500 MG ORAL TABLET take one po QD LEVO FLOXACIN 22671788643 No Longer Active Griffin HERNANDEZ Active PREDNISONE 20 MG ORAL TABLET Take 3 tabs daily for 3 d ays, 2 tabs daily for 3 days, 1 tab daily for 3 days, 1/2 tab daily for 3 days 11/07 PREDNISONE 97671608947 No Longer Active Carlton Hu MD Acti ve AVELOX 400 MG ORAL TABLET 1 tab by mouth daily MOXIFLOXACIN HCL 78555427358 No Longer Active Carlton Hu MD Active CHERATUSSIN AC 100-10 MG/5ML ORAL SYRUP 1 tsp by mouth every 4 hours as needed for cough GUAIFENESIN-CODEINE 16100851930 No Longe r Active Hugo Restrepo MD Active AVELOX 400 MG ORAL TABLET 1 tab by mouth daily MOXIFLOXACIN HCL 55713009459 No Longer Active Marcy De La Rosa MD PhD Active TERBINAFINE HCL 250 MG ORAL TABLET 1 qDay T ERBINAFINE HCL 74945128784 No Longer Active Marcy De La Rosa MD PhD Active CHERATUSSIN AC 100-10 MG/5ML ORAL SYRUP 1 tsp by mouth every 4 hours as needed for cough GUAIFENESIN-CODEINE 88484044582 No Longe r Active Marcy De La Rosa MD PhD Active AVELOX 400 MG ORAL TABLET 1 tab by mouth daily MOXIFLOXACIN HCL 85669606572 No Longer Active Marcy De La Rosa MD PhD Active HYDROCODONE-ACETAMINOPHEN 5-325 MG ORAL TABLET 1 po q 6hr PRN co ugh HYDROCODONE-ACETAMINOPHEN 23607903877 No Longer Active Marcy De La Rosa MD PhD Active PREDNISONE 20 MG ORAL TABLET 2 tabs daily for 3 days, 1 tab daily for 3 days, 1/2 tab daily for 2 days PREDNISONE 23386660627 No Longer Active Carlton Hu MD Active CEFDINIR 300 MG ORAL CAPSULE by mouth twice a day 2011 CEFDINIR 42242041186 No Longer Active Carlton Hu MD Acti ve HYDROCHLOROTHIAZIDE 25 MG ORAL TABLET 1 TAB PO DAILY HYDROCHLOROTHIAZIDE 15793422260 Active Carlton Hu MD A ctive ACETAMINOPHEN-CODEINE #3 300-30 MG ORAL TABLET 1 tablet po q 4-6 hrs prn pain ACETAMINOPHEN-CODEINE 46145864292 No Longer Active Rigde Bess DO Active ZITHROMAX 250 MG ORAL TABLET 2 po today, then 1 po q days 2-5 20 03/07/07 AZITHROMYCIN 13388226817 No Longer Active Carlton Hu MD Active CHERATUSSIN AC 100-10 MG/5ML ORAL SYRUP take 1 tsp po q4-6 h ours prn cough GUAIFENESIN-CODEINE 25174900033 No Longer Active Jayden Hu MD Active ACETAMINOPHEN-CODEINE #3 300-30 MG ORAL TABLET 1 PO Q 4-6 HR PRN PAIN ACETAMINOPHEN-CODEINE 08548702744 No Longer Active Da raimundo Hu MD Active LORTAB 7.5-500 MG/15ML ORAL ELIXIR 7.5 ml po q 4 hour prn cough HYDROCODONE-ACETAMINOPHEN 06428710504 No Longer Active Carlton Hu MD Active PREDNISONE 20 MG ORAL TABLET 1 po bid 3 days, then 1 po q day 3 days PREDNISONE 08329794382 No Longer Active Carlton Hu MD Active CEFDINIR 300 MG ORAL CAPSULE by mouth twice a day 2011 CEFDINIR 26483750199 No Longer Active Carlton Hu MD Acti ve CEFDINIR 300 MG ORAL CAPSULE by mouth twice a day 2010 CEFDINIR 35976438768 No Longer Active Carlton Hu MD Acti ve CEFDINIR 300 MG ORAL CAPSULE by mouth twice a day 2010 CEFDINIR 37780630421 No Longer Active Carlton Hu MD Acti ve TESSALON PERLES 100 MG ORAL CAPSULE 1 tablet by mouth 3 times daily as needed for cough BENZONATATE 03340017076 No Longer Active Carlton Hu MD Active CEFDINIR 300 MG ORAL CAPSULE by mouth twice a day 2010 CEFDINIR 23190767635 No Longer Active Carlton Hu MD Acti ve ZITHROMAX Z-REYNA 250 MG ORAL TABLET 2 today, then 1 daily for 4 d ays AZITHROMYCIN 03384768149 No Longer Active Hugo Restrepo MD Active TESSALON PERLES 100 MG ORAL CAPSULE 1 tablet by mouth 3 times daily as needed for cough TESSALON PERLES 100 MG ORAL CAPSULE 15934 7 BENZONATATE Inactive PREDNISONE 20 MG ORAL TABLET 1 po bid 3 days, then 1 po q day 3 days PREDNISONE 20 MG ORAL TABLET 844173 PREDNISONE Greer ctive LORTAB 7.5-500 MG/15ML ORAL [...] cough CHERATUSSIN AC 100-10 MG/5ML ORAL SYRUP 679060 GUAIFENESIN-CODEINE Inactive ACETAMINOPHEN-CODEINE #3 300-30 MG ORAL TABLET 1 tablet po q 4-6 hrs prn pain ACETAMINOPHEN-CODEINE #3 300-30 MG ORAL TABLET ACETAMINOPHEN-CODEINE Inactive HYDROCODONE-ACETAMINOPHEN 5-325 MG ORAL TABLET 1 po q 6hr PRN co ugh HYDROCODONE-ACETAMINOPHEN 5-325 MG ORAL TABLET 291057 HYDROCODONE-ACETAMINOPHEN Inactive AVELOX 400 MG ORAL TABLET 1 tab by mouth daily AVELOX 400 MG ORAL TABLET 452760 MOXIFLOXACIN HCL Inactive CHERATUSSIN AC 100-10 MG/5ML ORAL SYRUP 1 tsp by mouth every 4 hours as needed for cough CHERATUSSIN AC 100-10 MG/5ML ORAL SYRUP 9 14098 GUAIFENESIN-CODEINE Inactive TERBINAFINE HCL 250 MG ORAL TABLET 1 qDay 07/08 TERBINAFINE HCL 250 MG ORAL TABLET 093511 TERBINAFINE HCL Inactive CHERATUSSIN AC 100-10 MG/5ML ORAL SYRUP 1 tsp by mouth every 4 hours as needed for cough CHERATUSSIN AC 100-10 MG/5ML ORAL SYRUP 9 30090 GUAIFENESIN-CODEINE Inactive ACETAMINOPHEN-CODEINE #3 300-30 MG ORAL TABLET 1 PO Q 4-6 HRS MD N PAIN ACETAMINOPHEN-CODEINE #3 300-30 MG ORAL TABLET ACETAMINOPHEN-CODEINE Inactive CHERATUSSIN AC 100-10 MG/5ML ORAL SYRUP 1 tsp by mouth every 4 hours as needed for cough CHERATUSSIN AC 100-10 MG/5ML ORAL SYRUP 9 22739 GUAIFENESIN-CODEINE Inactive AUGMENTIN 875-125 MG ORAL TABLET 1 tab by mouth twice daily with food AUGMENTIN 875-125 MG ORAL TABLET 995364 AMOXICIL MADELINE-POT CLAVULANATE Inactive CHERATUSSIN AC 100-10 MG/5ML ORAL SYRUP take one tsp po Q 6h ours prn cough CHERATUSSIN AC 100-10 MG/5ML ORAL SYRUP 861265 GUAIFENESIN-CODEINE Inactive PROPRANOLOL HCL 60 MG ORAL TABLET 1 PO Q D PROPRANOLOL HCL 60 MG ORAL TABLET 276415 PROPRANOLOL HCL Inactive TOPAMAX 50 MG ORAL TABLET take 1 tab po BID for migraines. 07/02 TOPAMAX 50 MG ORAL TABLET 705442 TOPIRAMATE Inacti ve TOPAMAX 25 MG ORAL TABLET 1 qHS x 1 week, then 1 BID x 1 week, then 1 qAM and 2 qHS x 1 week, then 2 BID (migraine prevention) TOPAMAX 25 MG ORAL TABLET 084189 TOPIRAMATE Inactive LYRICA 75 MG ORAL CAPSULE TAKE 1 CAPSULE BY MOUTH TWICE DAILY LYRICA 75 MG ORAL CAPSULE PREGABALIN Inactive SYMBICORT 160-4.5 MCG/ACT INHALATION AEROSOL 2 puffs bid wit h rinse after SYMBICORT 160-4.5 MCG/ACT INHALATION AEROSOL BUDESONIDE- FORMOTEROL FUMARATE Inactive PROMETHAZINE-CODEINE 6.25-10 MG/5ML ORAL SYRUP 1 tsp b y mouth every 8 hours prn cough PROMETHAZINE-CODEINE 6.25-10 MG/ 5ML ORAL SYRUP 253511 PROMETHAZINE-CODEINE Inactive CYMBALTA 30 MG ORAL CAPSULE DELAYED RELEASE PARTICLES 1 cap by mouth daily CYMBALTA 30 MG ORAL CAPSULE DELAYED RELE ASE PARTICLES 593627 DULOXETINE HCL Inactive PREMARIN 0.625 MG ORAL TABLET TAKE 1 TAB BY MOUTH DAILY PREMARIN 0.625 MG ORAL TABLET ESTROGENS CONJUGATED Inactive CHERATUSSIN AC 100-10 MG/5ML ORAL SYRUP 1 tsp by mouth every 4 hours as needed for cough CHERATUSSIN AC 100-10 MG/5ML ORAL SYRUP 9 14250 GUAIFENESIN-CODEINE Inactive PROMETHAZINE-CODEINE 6.25-10 MG/5ML ORAL SYRUP 1 tsp b y mouth every 6 hours if needed for cough PROMETHAZINE-CODEINE 6.25-10 MG/5ML ORAL SYRUP 482841 PROMETHAZINE-CODEINE Inactive CHERATUSSIN AC 100-10 MG/5ML ORAL SYRUP 1 tsp by mouth every 4 hours as needed for cough CHERATUSSIN AC 100-10 MG/5ML ORAL SYRUP 9 40682 GUAIFENESIN-CODEINE Inactive FLUTICASONE PROPIONATE 50 MCG/ACT NASAL SUSPENSION 1 t o 2 sprays each nostril daily FLUTICASONE PROPIONATE 50 MCG/AC T NASAL SUSPENSION 7122327 FLUTICASONE PROPIONATE Inactive PREDNISONE 20 MG ORAL TABLET 3 tab PO qd x 2d, 2 tab P O qd x 2d, 1 tab PO qd x 2d, 1/2 tab PO qd x 2d PREDNISONE 20 MG ORAL TAB LET 832000 PREDNISONE Inactive LEVOFLOXACIN 500 MG ORAL TABLET 1 tab PO daily x 10 days LEVOFLOXACIN 500 MG ORAL TABLET 651696 LEVOFLOXACIN Inactive CYCLOBENZAPRINE HCL 10 MG ORAL TABLET 1 tablet by mouth BID prn had pain CYCLOBENZAPRINE HCL 10 MG ORAL TABLET 502377 CYCLOBENZAPRINE HCL Inactive ZOCOR 40 MG ORAL TABLET 1 tab by mouth daily 4 ZOCOR 40 MG ORAL TABLET 124760 SIMVASTATIN Inactive TUSSIONEX PENNKINETIC ER 10-8 MG/5ML [...] FLUTICASONE PROPIO EFE 50 MCG/ACT NASAL SUSPENSION 9655028 FLUTICASONE PROPIONATE Inactive TUSSIONEX PENNKINETIC ER 10-8 [...] three days PREDNISONE 20 MG ORAL TABLET 157724 PREDNIS ONE Inactive PROAIR HFA 108 (90 BASE) MCG/ACT INHALATION AEROSOL SO LUTION 2 puffs four times a day as needed PROAIR HFA 108 (90 B ASE) MCG/ACT INHALATION AEROSOL SOLUTION ALBUTEROL SULFATE Inactive ZITHROMAX Z-REYNA 250 MG ORAL TABLET 2 today, then 1 daily for 4 d ays ZITHROMAX Z-REYNA 250 MG ORAL TABLET 059089 AZITHROMYCIN Inactive CEFDINIR 300 MG ORAL CAPSULE by mouth twice a day 2010 CEFDINIR 300 MG ORAL CAPSULE 221087 CEFDINIR Inactive CEFDINIR 300 MG ORAL CAPSULE by mouth twice a day 2010 CEFDINIR 300 MG ORAL CAPSULE 466515 CEFDINIR Inactive CEFDINIR 300 MG ORAL CAPSULE by mouth twice a day 2010 CEFDINIR 300 MG ORAL CAPSULE 629570 CEFDINIR Inactive CEFDINIR 300 MG ORAL CAPSULE by mouth twice a day 2011 CEFDINIR 300 MG ORAL CAPSULE 750008 CEFDINIR Inactive ZITHROMAX 250 MG ORAL TABLET 2 po today, then 1 po q days 2-5 20 03/07/07 ZITHROMAX 250 MG ORAL TABLET 357939 AZITHROMYCIN Greer ctive CEFDINIR 300 MG ORAL CAPSULE by mouth twice a day 2011 CEFDINIR 300 MG ORAL CAPSULE 532687 CEFDINIR Inactive PREDNISONE 20 MG ORAL TABLET 2 tabs daily for 3 days, 1 tab daily for 3 days, 1/2 tab daily for 2 days PREDNISONE 20 MG ORAL T ABLET 099319 PREDNISONE Inactive AVELOX 400 MG ORAL TABLET 1 tab by mouth daily AVELOX 400 MG ORAL TABLET 771629 MOXIFLOXACIN HCL Inactive AVELOX 400 MG ORAL TABLET 1 tab by mouth daily AVELOX 400 MG ORAL TABLET 908420 MOXIFLOXACIN HCL Inactive PREDNISONE 20 MG ORAL TABLET Take 3 tabs daily for 3 d ays, 2 tabs daily for 3 days, 1 tab daily for 3 days, 1/2 tab daily for 3 days 11/07 PREDNISONE 20 MG ORAL TABLET 700472 PREDNISONE Inactive LEVAQUIN 500 MG ORAL TABLET take one po QD LEVAQUIN 500 MG ORAL TABLET 658748 LEVOFLOXACIN Inactive AZITHROMYCIN 250 MG ORAL TABLET 2 po qd x 1 day, then 1 po q d x 4 days AZITHROMYCIN 250 MG ORAL TABLET 951705 AZITHROMY GIOVANNI Inactive MEDROL 4 MG ORAL TABLET THERAPY PACK 6 tabs on day 1, 5 tabs on day 2, 4 tabs on day 3, 3 tabs on day 4, 2 tabs on day 5, 1 tab on day 6 2013 MEDROL 4 MG ORAL TABLET THERAPY PACK 273874 METHYLPREDNISOLONE [place] ctive CHERATUSSIN AC 100-10 MG/5ML ORAL SYRUP 5ml po q6hr PRN Cough 20 13/04/14 CHERATUSSIN AC 100-10 MG/5ML ORAL SYRUP 462335 GUAIFENE SIN-CODEINE Inactive TRIAMCINOLONE ACETONIDE 0.1 % EXTERNAL CREAM apply three roger es daily prn rash TRIAMCINOLONE ACETONIDE 0.1 % EXTERNAL CREAM 101 4314 TRIAMCINOLONE ACETONIDE Inactive AZITHROMYCIN 250 MG ORAL TABLET 2 po qd x 1 day, then 1 po q d x 4 days AZITHROMYCIN 250 MG ORAL TABLET 060346 AZITHROMY GIOVANNI Inactive MEDROL 4 MG ORAL TABLET THERAPY PACK 6 pills x 1 day, then 5 pills x 1 day then 4 pills x 1 day, then 3 pills x 1 day, then 2 pills x 1 day, then 1 pill x 1 day, then stop MEDROL 4 MG ORAL TABLET THERAPY PACK 424148 METHYLPREDNISOLONE Inactive AMOXICILLIN 500 MG ORAL CAPSULE 1 tab by mouth 3 times daily x 10 days AMOXICILLIN 500 MG ORAL CAPSULE 550232 AMOXICILL IN Inactive AMOXICILLIN 500 MG ORAL CAPSULE 1 tab by mouth 3 times daily x 10 days AMOXICILLIN 500 MG ORAL CAPSULE 866036 AMOXICILL IN Inactive ZITHROMAX 250 MG ORAL TABLET 2 po today, then 1 po q days 2-5 20 12/08/14 ZITHROMAX 250 MG ORAL TABLET 760208 AZITHROMYCIN Greer ctive AUGMENTIN 875-125 MG ORAL TABLET 1 po BID x 10 days 20 13/01/20 AUGMENTIN 875-125 MG ORAL TABLET 721129 AMOXICILLIN-POT CLAVULANATE Inactive ZITHROMAX Z-REYNA 250 MG ORAL TABLET 2 today, then 1 daily for 4 d ays ZITHROMAX Z-REYNA 250 MG ORAL TABLET 398926 AZITHROMYCIN Inactive ZITHROMAX 250 MG ORAL TABLET 2 po today, then 1 po q days 2-5 20 14/03/21 ZITHROMAX 250 MG ORAL TABLET 810867 AZITHROMYCIN Greer ctive ZITHROMAX Z-REYNA 250 MG ORAL TABLET 2 today, then 1 daily for 4 d ays ZITHROMAX Z-REYNA 250 MG ORAL TABLET 414589 AZITHROMYCIN Inactive CEFDINIR 300 MG ORAL CAPSULE 1 po BID x 10 days 06/21 CEFDINIR 300 MG ORAL CAPSULE 527894 CEFDINIR Inactive ZITHROMAX 250 MG ORAL TABLET 2 po today, then 1 po q days 2-5 20 13/08/10 ZITHROMAX 250 MG ORAL TABLET 352138 AZITHROMYCIN Greer ctive LEVAQUIN 500 MG ORAL TABLET 1 tablet by mouth daily 13/09/24 LEVAQUIN 500 MG ORAL TABLET 437576 LEVOFLOXACIN Inactive SINGULAIR 10 MG ORAL TABLET 1 po qday for allergies 20 14/01/12 SINGULAIR 10 MG ORAL TABLET 431533 MONTELUKAST SODIUM Inactive AMOXICILLIN 500 MG ORAL CAPSULE 2 po BID x 10 days 201 09/29/08 AMOXICILLIN 500 MG ORAL CAPSULE 522870 AMOXICILLIN Inactive PREDNISONE 20 MG ORAL TABLET 2 tabs daily for 3 days, 1 tab daily for 3 days, 1/2 tab daily for 2 days PREDNISONE 20 MG ORAL T ABLET 313528 PREDNISONE Inactive ZITHROMAX Z-REYNA 250 MG ORAL TABLET 2 today, then 1 daily for 4 d ays ZITHROMAX Z-REYNA 250 MG ORAL TABLET 011729 AZITHROMYCIN Inactive PREDNISONE 20 MG ORAL TABLET 2 tabs daily for 3 days, 1 tab daily for 3 days, 1/2 tab daily for 2 days PREDNISONE 20 MG ORAL T ABLET 464294 PREDNISONE Inactive ZITHROMAX 250 MG ORAL TABLET 2 po today, then 1 po q days 2-5 20 14/09/04 ZITHROMAX 250 MG ORAL TABLET 754214 AZITHROMYCIN Greer ctive AMOXICILLIN 500 MG ORAL CAPSULE 1 cap by mouth three times a day AMOXICILLIN 500 MG ORAL CAPSULE 304131 AMOXICILLIN Inactive TERBINAFINE HCL 250 MG ORAL TABLET 1 qDay for nail fungus 7 TERBINAFINE HCL 250 MG ORAL TABLET 298913 TERBINAFINE HCL Inact nael AUGMENTIN 875-125 MG ORAL TABLET 1 po BID x 10 days 16/03/22 AUGMENTIN 875-125 MG ORAL TABLET 841804 AMOXICILLIN-POT CLAVULANATE Inactive PREDNISONE 20 MG ORAL TABLET 2 po qd x 5 days PREDNISONE 20 MG ORAL TABLET 597145 PREDNISONE Inactive AZITHROMYCIN 250 MG ORAL TABLET 2 po qd x 1 day, then 1 po q d x 4 days AZITHROMYCIN 250 MG ORAL TABLET 710969 AZITHROMY GIOVANNI Inactive Vital Signs Date Name [...] - Chem istry sodium, serum 139 mmol/L [id number] 3019/03/19 potassium, serum 3.6 mmol/L 3.5-5.2 chloride, serum 100 mmol/L 98-107 carbon dioxide, venous blood 30.3 mmol/L 21.0-32 .0 blood glucose 101 mg/dL 65-110 calcium, serum 9.4 mg/dL 8.5-10.1 urea nitrogen, blood 10 mg/dL 7-18 creatinine, serum 0.96 mg/dL 0.60-1.30 Encounters Code Encounter Date Provider Facility [id number] Vst-Est Level III 11:12:16 CDT Br natalie W Shahriar DO [facility] CPT-42544 Level 3 Est. Patient 11:34:49 TELEMARKETER Perez Mora MD [facility] CPT-50482 Level 4 Est. Patient 09:51:32 TELEMARKETER Carlton rich MD [facility] CPT-29314 Level 3 Est. Patient 10:26:00 TELEMARKETER Elise Are [facility] CPT-19597 Level 3 Est. Patient 13:35:41 TELEMARKETER Carlton rich MD [facility] CPT-41813 Level 3 Est. Patient 10:03:52 TELEMARKETER Carlton rich MD [facility] CPT-87366 Level 3 Est. Patient 12:17:50 CDT Hugo Restrepo MD [facility]-47170 Level 3 Est. Patient 13:42:38 CDT Elise Are [facility] CPT-18818 Level 3 Est. Patient 13:23:51 CDT Diya cobian [facility] CPT-47621 Level 3 Est. Patient 14:22:19 TELEMARKETER Diya cobian [facility] CPT-11784 Level 3 Est. Patient 10:11:46 CDT Carlton rich MD [facility] CPT-13976 Level 3 Est. Patient 17:29:43 CDT Elise Are [facility] CPT-45669 Level 3 Est. Patient 11:58:06 CDT Elise Are [facility] CPT-79478 Level 4 Est. Patient 14:36:51 CDT Carlton rich MD [facility] CPT-40274 Level 3 Est. Patient 18:16:00 TELEMARKETER Blaine HERNANDEZ [facility] CPT-33535 Level 3 Est. Patient 09:45:49 TELEMARKETER Carlton rich MD [facility] CPT-97045 Level 3 Est. Patient 13:19:20 CDT Carlton rich MD [facility]-65439 Level 3 Est. Patient 13:06:43 CDT Ridge tam DO [facility] CPT-59910 Level 3 Est. Patient 10:03:07 CDT Perez Mora MD [facility] CPT-64912 Level 3 Est. Patient 19:50:35 TELEMARKETER Carlton rich MD [facility] CPT-37383 Level 4 Est. Patient 18:05:01 TELEMARKETER Carlton rich MD [facility] CPT-14182 Level 3 Est. Patient 10:45:55 TELEMARKETER Hugo Restrepo MD [facility] CPT-33368 Level 3 Est. Patient 14:12:49 CDT Griffin HERNANDEZ [facility] CPT-70432 Level 3 Est. Patient 17:37:24 CDT Carlton rich MD [facility]-21939 Level 3 Est. Patient 16:51:54 CDT Carlton rich MD [facility] CPT-77102 Level 3 Est. Patient 12:18:11 CDT Hugo Restrepo MD [facility] CPT-15169 Level 3 Est. Patient 11:30:25 CDT Marcy crisostomo MD PhD [facility] CPT-05282 Level 3 Est. Patient 12:00:47 TELEMARKETER Carlton rich MD [facility]-98462 Level 3 Est. Patient 16:31:06 TELEMARKETER Carlton rich MD [facility] CPT-70724 Level 3 Est. Patient 16:23:24 TELEMARKETER Ridge tam [facility] CPT-58205 Level 3 Est. Patient 12:34:12 CDT Carlton rich MD [facility] CPT-72375 Level 2 Est. Patient 15:43:33 CDT Robi armstrong MD [facility] CPT-06618 Level 4 Est. Patient 14:04:44 CDT Carlton rich MD [facility] CPT-46149 Level 3 Est. Patient 05:47:59 CDT Ridge tam DO [facility] CPT-57696 Level 3 Est. Patient 13:12:53 TELEMARKETER Carlton rich MD [facility] CPT-43996 Level 3 Est. Patient 14:26:53 CDT Hugo Restrepo MD [facility] Procedures Code Procedure Name Date Entry Date Standard Desc ription CPT-000 Give Appropriate Flu Vaccine 14:14:31 CDT 2 CPT-J1040 Depo Medrol 80 mg (Methyl Prednisolone A cetate) 10:42:44 CDT CPT-J1100 Decadron 8mg (Dexamethasone) 10:42:44 CDT 2 CPT-J0696 Rocephin 1gm Inj Solr 14:32:13 CDT CPT-J1020 Depo Medrol 60 mg (Methyl Prednisolone A cetate) 14:32:13 CDT CPT-J1100 Decadron 6mg (Dexamethasone) 14:32:13 CDT 2 CPT-11974 Hip bilat min 2V w AP pelvis 13:16:20 CDT 2 CPT-68274 Pelvis only 13:07:33 CDT CPT-72447 Spec Collection and Handling Fee 11:25:12 C DT CPT-19357 Fluzone Quadrivalent Intramuscular Suspe nsion 0.5 ML 14:31:55 CDT CPT-77696 Abx/Therapy Injection 13:28:47 TELEMARKETER CPT-J2930 Solu Medrol 125 mg (Methyl Prednisolone Sodium Succinate) 12:00:47 TELEMARKETER CPT-28904 Venipuncture Draw Fee 11:33:31 CDT CPT-49092 EKG Trac and Interp 11:21:09 CDT CPT-71801 Chest 2V Frontal and Lat 11:21:09 CDT 12/15 CPT-56331 Venipuncture Draw Fee 08:02:34 CDT CPT-86826 Chest 2V Frontal and Lat 05:47:59 CDT 06/05
--- OUTSIDE RECORDS SUMMARY | 2019-10-08 09:34 | XMS REPORT | Clinical Summary ---
Author Author Catilin, Juliana Martinez Organization [facility] Address Unknown Phone Unavailable Allergies, Adverse [...] po q d x 4 days AZITHROMYCIN [id number] Active Ridge Bess DO Active PREDNISONE 20 MG ORAL TABLET two tabs by mouth today, then one tab by mouth days two and three and four PREDNISONE 29575280496 Active B basil Bess DO Active PREDNISONE 20 MG ORAL TABLET 2 po qd x 5 days P REDNISONE 89709577572 No Longer Active Perez Mora MD Active PROAIR HFA 108 (90 BASE) MCG/ACT INHALATION AEROSOL SO LUTION 2 puffs four times a day as needed ALBUTEROL SULFATE 13203020661 No Long er Active Becky FUENTES Active ASPIRIN 81 MG ORAL TABLET 1 po qd ASPIRIN 06594936974 Active Carlton Hu MD Active PREDNISONE 20 MG ORAL TABLET 1 tab twice daily for 3 d ay, then one daily for three days PREDNISONE 44413703954 No Longer Active Carlton Hu MD Active AUGMENTIN 875-125 MG ORAL TABLET 1 po BID x 10 days 20 16/03/22 AMOXICILLIN-POT CLAVULANATE 80357322859 No Longer Active Elise Garcia APRN Active TERBINAFINE HCL 250 MG ORAL TABLET 1 qDay for nail fungus 7 TERBINAFINE HCL 65140343761 No Longer Active Carlton Hu MD A ctive TUSSIONEX PENNKINETIC ER 10-8 MG/5ML ORAL SUSPENSION E XTENDED RELEASE 5ml po q12hr PRN Cough HYDROCOD POLST-CHLORPHEN POLST 06373757838 Active Ridge Bess DO Active AMOXICILLIN 500 MG ORAL CAPSULE 1 cap by mouth three times a day AMOXICILLIN 79501066780 No Longer Active Carlton Hu MD Active ELMIRON 100 MG ORAL CAPSULE 2 tablets in the am and 1 tablet at hs PENTOSAN POLYSULFATE SODIUM 14190864131 No Longer Active Robert Hu MD Active MUCINEX D 60-600 MG ORAL TABLET EXTENDED RELEASE 12 HOUR 1 t ab po q am PSEUDOEPHEDRINE-GUAIFENESIN 77920429370 No Longer Act nael Carlton Hu MD Active MUCINEX DM MAXIMUM STRENGTH 60-1200 MG ORAL TABLET EXT ENDED RELEASE 12 HOUR 1 tab po q am DEXTROMETHORPHAN-GUAIFENESIN 90933907607 No Longer Active Carlton Hu MD Active TUSSIONEX PENNKINETIC ER 10-8 MG/5ML ORAL SUSPENSION E XTENDED RELEASE 5ml po q12hr PRN Cough HYDROCOD POLST-CHLORPHEN POLST 5 7771911949 No Longer Active Carlton Hu MD Active POTASSIUM CHLORIDE ER 20 MEQ ORAL TABLET EXTENDED RELE ASE Take 1 by mouth 4 times daily for 7 days POTASSIUM CHLORIDE 90474004489 No Longer Active Carlton Hu MD Active ZITHROMAX 250 MG ORAL TABLET 2 po today, then 1 po q days 2-5 20 14/09/04 AZITHROMYCIN 63614331390 No Longer Active Elise Garcia APRN Active TUSSIONEX PENNKINETIC ER 10-8 MG/5ML ORAL SUSPENSION E XTENDED RELEASE 5 ml twice a day as needed for cough HYDROCOD POLST-CHLORPH EN POLST 82588659336 No Longer Active Elise Garcia APRN Active MONTELUKAST SODIUM 10 MG ORAL TABLET 1 po daily for Allergy MONTELUKAST SODIUM 10500777588 Active Carlton Hu MD Ac tive TUSSIONEX PENNKINETIC ER 10-8 MG/5ML ORAL SUSPENSION E XTENDED RELEASE 5ml po q12hr PRN Cough HYDROCOD POLST-CHLORPHEN POLST 5 8425162995 No Longer Active Hugo Restrepo MD Active GABAPENTIN 100 MG ORAL CAPSULE 1 po BID for fibromyalgia GABAPENTIN 09741718387 Active Carlton Hu MD Active LYRICA 100 MG ORAL CAPSULE Take 1 tab po BID for fibromyalgia 20 11/08/21 PREGABALIN 87593051466 No Longer Active Elise Arell DENSITOMETER READER A ctive PREDNISONE 20 MG ORAL TABLET 2 tabs daily for 3 days, 1 tab daily for 3 days, 1/2 tab daily for 2 days PREDNISONE 14474125950 No Longer Active Jillina Frazell DENSITOMETER READER Active TUSSIONEX PENNKINETIC ER 10-8 MG/5ML ORAL SUSPENSION E XTENDED RELEASE 5 mL PO q 12 hrs PRN cough HYDROCOD POLST-CHLORPHEN POLST 409506 41540 No Longer Active Jillina Frazell DENSITOMETER READER Active FLUTICASONE PROPIONATE 50 MCG/ACT NASAL SUSPENSION 2 s prays each nostril daily until bottle is empty FLUTICASONE PROPIONATE 736440383 99 No Longer Active Jillina Frazell DENSITOMETER READER Active ASMANEX 60 METERED DOSES 220 MCG/INH INHALATION AEROSO L POWDER BREATH ACTIVATED 1 puff bid with rinse after MOMETASONE FUROATE 9127673 4102 No Longer Active Jillina Frazell DENSITOMETER READER Active ZITHROMAX Z-REYNA 250 MG ORAL TABLET 2 today, then 1 daily for 4 d ays AZITHROMYCIN 15312965403 No Longer Active Elise Arell DENSITOMETER READER Active TUSSIONEX PENNKINETIC ER 10-8 MG/5ML ORAL SUSPENSION E XTENDED RELEASE 5ml po q12hr PRN Cough HYDROCOD POLST-CHLORPHEN POLST 5 6622226630 No Longer Active Elise Arell DENSITOMETER READER Active PREDNISONE 20 MG ORAL TABLET 2 tabs daily for 3 days, 1 tab daily for 3 days, 1/2 tab daily for 2 days PREDNISONE 64255935052 No Longer Active Jillina Frazell DENSITOMETER READER Active AMOXICILLIN 500 MG ORAL CAPSULE 2 po BID x 10 days 201 09/29/08 AMOXICILLIN 70824548567 No Longer Active Jillina Frazell DENSITOMETER READER Act nael SINGULAIR 10 MG ORAL TABLET 1 po qday for allergies 20 14/01/12 MONTELUKAST SODIUM 61027772699 No Longer Active Carlton Hu MD Active LEVAQUIN 500 MG ORAL TABLET 1 tablet by mouth daily 20 13/09/24 LEVOFLOXACIN 31339997511 No Longer Active Carlton Hu MD Acti ve FLUTICASONE PROPIONATE 50 MCG/ACT NASAL SUSPENSION 2 s prays each nostril daily for 2 weeks, then 1 spray each nostril daily. FLUTICASONE PROPIONATE 70594872763 Active Elise Areseema DENSITOMETER READER Active ZITHROMAX 250 MG ORAL TABLET 2 po today, then 1 po q days 2-5 20 13/08/10 AZITHROMYCIN 61737967523 No Longer Active Elise Garcia DENSITOMETER READER Active XANAX 0.5 MG ORAL TABLET one tablet by mouth daily prn anxiety 2015 ALPRAZOLAM 96844712471 Active ALFREDO Holly Active CYMBALTA 30 MG ORAL CAPSULE DELAYED RELEASE PARTICLES 1 cap by mouth daily for depression DULOXETINE HCL 87491517890 Active Carlton beltrán MD Active CEFDINIR 300 MG ORAL CAPSULE 1 po BID x 10 days CEFDINIR 59927529716 No Longer Active Carlton Hu MD Active ZOCOR 40 MG ORAL TABLET 1 tab by mouth daily SI MVASTATIN 21183008990 No Longer Active Carlton Hu MD Active CYCLOBENZAPRINE HCL 10 MG ORAL TABLET 1 tablet by mouth BID prn had pain CYCLOBENZAPRINE HCL 47673853260 No Longer Active Jayden Hu MD Active LEVOFLOXACIN 500 MG ORAL TABLET 1 tab PO daily x 10 days LEVOFLOXACIN 76071518070 No Longer Active Carlton Hu MD Acti ve PREDNISONE 20 MG ORAL TABLET 3 tab PO qd x 2d, 2 tab P O qd x 2d, 1 tab PO qd x 2d, 1/2 tab PO qd x 2d PREDNISONE 53948846968 No Lo nger Active Carlton Hu MD Active FLUTICASONE PROPIONATE 50 MCG/ACT NASAL SUSPENSION 1 t o 2 sprays each nostril daily FLUTICASONE PROPIONATE 16578002036 No Longer Ac tive Blaine HERNANDEZ Active CHERATUSSIN AC 100-10 MG/5ML ORAL SYRUP 1 tsp by mouth every 4 hours as needed for cough GUAIFENESIN-CODEINE 94954440573 No Longe r Active Blaine HERNANDEZ Active PROMETHAZINE-CODEINE 6.25-10 MG/5ML ORAL SYRUP 1 tsp b y mouth every 6 hours if needed for cough PROMETHAZINE-CODEINE 34754178119 No Longer Active Blaine HERNANDEZ Active CHERATUSSIN AC 100-10 MG/5ML ORAL SYRUP 1 tsp by mouth every 4 hours as needed for cough GUAIFENESIN-CODEINE 13635915354 No Longe r Active Blaine HERNANDEZ Active ZITHROMAX Z-REYNA 250 MG ORAL TABLET 2 today, then 1 daily for 4 d ays AZITHROMYCIN 05305482874 No Longer Active Columba Raida Act nael ZITHROMAX 250 MG ORAL TABLET 2 po today, then 1 po q days 2-5 20 14/03/21 AZITHROMYCIN 72189151173 No Longer Active Carlton Hu MD Active ZITHROMAX Z-REYNA 250 MG ORAL TABLET 2 today, then 1 daily for 4 d ays AZITHROMYCIN 65483734013 No Longer Active Columba Raida Act nael AUGMENTIN 875-125 MG ORAL TABLET 1 po BID x 10 days 20 13/01/20 AMOXICILLIN-POT CLAVULANATE 15755608402 No Longer Active Diya De Guzman APRN Active ZITHROMAX 250 MG ORAL TABLET 2 po today, then 1 po q days 2-5 20 12/08/14 AZITHROMYCIN 63171930424 No Longer Active Carlton Hu MD Active TRAMADOL HCL 50 MG ORAL TABLET 1 po tid with ES Tylenol TRAMADOL HCL 50075463878 Active ALFREDO Holly Active PREMARIN 0.625 MG ORAL TABLET TAKE 1 TAB BY MOUTH DAILY ESTROGENS CONJUGATED 55521657894 No Longer Active Ridge W Shahriar DO A ctive CYMBALTA 30 MG ORAL CAPSULE DELAYED RELEASE PARTICLES 1 cap by mouth daily DULOXETINE HCL 82327600242 No Longer Active Ridge tam DO Active AMOXICILLIN 500 MG ORAL CAPSULE 1 tab by mouth 3 times daily x 10 days AMOXICILLIN 40912841015 No Longer Active Carlton bustamante MD Active AMOXICILLIN 500 MG ORAL CAPSULE 1 tab by mouth 3 times daily x 10 days AMOXICILLIN 33527430951 No Longer Active Carlton bustamante MD Active PROMETHAZINE-CODEINE 6.25-10 MG/5ML ORAL SYRUP 1 tsp b y mouth every 8 hours prn cough PROMETHAZINE-CODEINE 95973354132 No Longer Acti ve Carlton Hu MD Active MEDROL 4 MG ORAL TABLET THERAPY PACK 6 pills x 1 day, then 5 pills x 1 day then 4 pills x 1 day, then 3 pills x 1 day, then 2 pills x 1 day, then 1 pill x 1 day, then stop METHYLPREDNISOLONE 75839227351 No Long er Active Perez Mora MD Active AZITHROMYCIN 250 MG ORAL TABLET 2 po qd x 1 day, then 1 po q d x 4 days AZITHROMYCIN 42116114699 No Longer Active Perez Ambriz MD Active SYMBICORT 160-4.5 MCG/ACT INHALATION AEROSOL 2 puffs bid wit h rinse after BUDESONIDE-FORMOTEROL FUMARATE 60521989918 N o Longer Active Perez Mora MD Active LYRICA 75 MG ORAL CAPSULE TAKE 1 CAPSULE BY MOUTH TWICE DAILY PREGABALIN 46067130431 No Longer Active Carlton Hu MD Acti ve TOPAMAX 25 MG ORAL TABLET 1 qHS x 1 week, then 1 BID x 1 week, then 1 qAM and 2 qHS x 1 week, then 2 BID (migraine prevention) T OPIRAMATE 31390865317 No Longer Active Jerica FUENTES Active TOPAMAX 50 MG ORAL TABLET take 1 tab po BID for migraines. 07/02 TOPIRAMATE 38888039592 No Longer Active Jerica FUENTES Active TOPAMAX 100 MG ORAL TABLET Take 1 tablet po bid TO PIRAMATE 25860437543 Active Carlton Hu MD Active TRIAMCINOLONE ACETONIDE 0.1 % EXTERNAL CREAM apply three roger es daily prn rash TRIAMCINOLONE ACETONIDE 96899075729 No Longer Active Carlton Hu MD Active PAXIL 40 MG ORAL TABLET take 1 tab po qday for depression 0 PAROXETINE HCL 39934169186 Active Perez Mora MD Active CHERATUSSIN AC 100-10 MG/5ML ORAL SYRUP 5ml po q6hr PRN Cough 20 13/04/14 GUAIFENESIN-CODEINE 63444941010 No Longer Active Carlton Hu MD Active MEDROL 4 MG ORAL TABLET THERAPY PACK 6 tabs on day 1, 5 tabs on day 2, 4 tabs on day 3, 3 tabs on day 4, 2 tabs on day 5, 1 tab on day 6 2013 METHYLPREDNISOLONE 25444520757 No Longer Active Perez Mora MD Active AZITHROMYCIN 250 MG ORAL TABLET 2 po qd x 1 day, then 1 po q d x 4 days AZITHROMYCIN 87464503020 No Longer Active Perez Ambriz MD Active PROPRANOLOL HCL 60 MG ORAL TABLET 1 PO Q D PROPRANOLOL HCL 91205998499 No Longer Active Perez Mora MD Activ e CHERATUSSIN AC 100-10 MG/5ML ORAL SYRUP take one tsp po Q 6h ours prn cough GUAIFENESIN-CODEINE 99261505674 No Longer Active Zia Mora MD Active AUGMENTIN 875-125 MG ORAL TABLET 1 tab by mouth twice daily with food AMOXICILLIN-POT CLAVULANATE 80268010158 No Longer Act nael Perez Mora MD Active CHERATUSSIN AC 100-10 MG/5ML ORAL SYRUP 1 tsp by mouth every 4 hours as needed for cough GUAIFENESIN-CODEINE 80750994864 No Longe r Active Hugo Restrepo MD Active ACETAMINOPHEN-CODEINE #3 300-30 MG ORAL TABLET 1 PO Q 4-6 HRS HI N PAIN ACETAMINOPHEN-CODEINE 70324024782 No Longer Active Hugo Restrepo MD Active LEVAQUIN 500 MG ORAL TABLET take one po QD LEVO FLOXACIN 49163499045 No Longer Active Griffin HERNANDEZ Active PREDNISONE 20 MG ORAL TABLET Take 3 tabs daily for 3 d ays, 2 tabs daily for 3 days, 1 tab daily for 3 days, 1/2 tab daily for 3 days 11/07 PREDNISONE 35168092276 No Longer Active Carlton Hu MD Acti ve AVELOX 400 MG ORAL TABLET 1 tab by mouth daily MOXIFLOXACIN HCL 59148987656 No Longer Active Carlton Hu MD Active CHERATUSSIN AC 100-10 MG/5ML ORAL SYRUP 1 tsp by mouth every 4 hours as needed for cough GUAIFENESIN-CODEINE 56719048588 No Longe r Active Hugo Restrepo MD Active AVELOX 400 MG ORAL TABLET 1 tab by mouth daily MOXIFLOXACIN HCL 57191021296 No Longer Active Marcy De La Rosa MD PhD Active TERBINAFINE HCL 250 MG ORAL TABLET 1 qDay T ERBINAFINE HCL 50035683995 No Longer Active Marcy De La Rosa MD PhD Active CHERATUSSIN AC 100-10 MG/5ML ORAL SYRUP 1 tsp by mouth every 4 hours as needed for cough GUAIFENESIN-CODEINE 97924830129 No Longe r Active Marcy De La Rosa MD PhD Active AVELOX 400 MG ORAL TABLET 1 tab by mouth daily MOXIFLOXACIN HCL 52573384725 No Longer Active Marcy De La Rosa MD PhD Active HYDROCODONE-ACETAMINOPHEN 5-325 MG ORAL TABLET 1 po q 6hr PRN co ugh HYDROCODONE-ACETAMINOPHEN 46821062239 No Longer Active Marcy De La Rosa MD PhD Active PREDNISONE 20 MG ORAL TABLET 2 tabs daily for 3 days, 1 tab daily for 3 days, 1/2 tab daily for 2 days PREDNISONE 60802116426 No Longer Active Carlton Hu MD Active CEFDINIR 300 MG ORAL CAPSULE by mouth twice a day 2011 CEFDINIR 06967192439 No Longer Active Carlton Hu MD Acti ve HYDROCHLOROTHIAZIDE 25 MG ORAL TABLET 1 TAB PO DAILY HYDROCHLOROTHIAZIDE 94088526204 Active Carlton Hu MD A ctive ACETAMINOPHEN-CODEINE #3 300-30 MG ORAL TABLET 1 tablet po q 4-6 hrs prn pain ACETAMINOPHEN-CODEINE 52524925707 No Longer Active Ridge Bess DO Active ZITHROMAX 250 MG ORAL TABLET 2 po today, then 1 po q days 2-5 20 03/07/07 AZITHROMYCIN 89429830143 No Longer Active Carlton Hu MD Active CHERATUSSIN AC 100-10 MG/5ML ORAL SYRUP take 1 tsp po q4-6 h ours prn cough GUAIFENESIN-CODEINE 40897964973 No Longer Active Jayden Hu MD Active ACETAMINOPHEN-CODEINE #3 300-30 MG ORAL TABLET 1 PO Q 4-6 HR PRN PAIN ACETAMINOPHEN-CODEINE 02888847180 No Longer Active Da raimundo Hu MD Active LORTAB 7.5-500 MG/15ML ORAL ELIXIR 7.5 ml po q 4 hour prn cough HYDROCODONE-ACETAMINOPHEN 52671989816 No Longer Active Carlton Hu MD Active PREDNISONE 20 MG ORAL TABLET 1 po bid 3 days, then 1 po q day 3 days PREDNISONE 59840013096 No Longer Active Carlton Hu MD Active CEFDINIR 300 MG ORAL CAPSULE by mouth twice a day 2011 CEFDINIR 85036721729 No Longer Active Carlton Hu MD Acti ve CEFDINIR 300 MG ORAL CAPSULE by mouth twice a day 2010 CEFDINIR 22864316381 No Longer Active Carlton Hu MD Acti ve CEFDINIR 300 MG ORAL CAPSULE by mouth twice a day 2010 CEFDINIR 92113852892 No Longer Active Carlton Hu MD Acti ve TESSALON PERLES 100 MG ORAL CAPSULE 1 tablet by mouth 3 times daily as needed for cough BENZONATATE 35179681586 No Longer Active Carlton Hu MD Active CEFDINIR 300 MG ORAL CAPSULE by mouth twice a day 2010 CEFDINIR 54186819971 No Longer Active Carlton Hu MD Acti ve ZITHROMAX Z-REYNA 250 MG ORAL TABLET 2 today, then 1 daily for 4 d ays AZITHROMYCIN 46220781812 No Longer Active Hugo Restrepo MD Active TESSALON PERLES 100 MG ORAL CAPSULE 1 tablet by mouth 3 times daily as needed for cough TESSALON PERLES 100 MG ORAL CAPSULE 76305 7 BENZONATATE Inactive PREDNISONE 20 MG ORAL TABLET 1 po bid 3 days, then 1 po q day 3 days PREDNISONE 20 MG ORAL TABLET 073025 PREDNISONE [place] ctive LORTAB 7.5-500 MG/15ML ORAL [...] cough CHERATUSSIN AC 100-10 MG/5ML ORAL SYRUP 958264 GUAIFENESIN-CODEINE Inactive ACETAMINOPHEN-CODEINE #3 300-30 MG ORAL TABLET 1 tablet po q 4-6 hrs prn pain ACETAMINOPHEN-CODEINE #3 300-30 MG ORAL TABLET ACETAMINOPHEN-CODEINE Inactive HYDROCODONE-ACETAMINOPHEN 5-325 MG ORAL TABLET 1 po q 6hr PRN co ugh HYDROCODONE-ACETAMINOPHEN 5-325 MG ORAL TABLET 708848 HYDROCODONE-ACETAMINOPHEN Inactive AVELOX 400 MG ORAL TABLET 1 tab by mouth daily AVELOX 400 MG ORAL TABLET 276467 MOXIFLOXACIN HCL Inactive CHERATUSSIN AC 100-10 MG/5ML ORAL SYRUP 1 tsp by mouth every 4 hours as needed for cough CHERATUSSIN AC 100-10 MG/5ML ORAL SYRUP 9 21510 GUAIFENESIN-CODEINE Inactive TERBINAFINE HCL 250 MG ORAL TABLET 1 qDay 07/08 TERBINAFINE HCL 250 MG ORAL TABLET 290708 TERBINAFINE HCL Inactive CHERATUSSIN AC 100-10 MG/5ML ORAL SYRUP 1 tsp by mouth every 4 hours as needed for cough CHERATUSSIN AC 100-10 MG/5ML ORAL SYRUP 9 12444 GUAIFENESIN-CODEINE Inactive ACETAMINOPHEN-CODEINE #3 300-30 MG ORAL TABLET 1 PO Q 4-6 HRS HI N PAIN ACETAMINOPHEN-CODEINE #3 300-30 MG ORAL TABLET ACETAMINOPHEN-CODEINE Inactive CHERATUSSIN AC 100-10 MG/5ML ORAL SYRUP 1 tsp by mouth every 4 hours as needed for cough CHERATUSSIN AC 100-10 MG/5ML ORAL SYRUP 9 72839 GUAIFENESIN-CODEINE Inactive AUGMENTIN 875-125 MG ORAL TABLET 1 tab by mouth twice daily with food AUGMENTIN 875-125 MG ORAL TABLET 564507 AMOXICIL MADELINE-POT CLAVULANATE Inactive CHERATUSSIN AC 100-10 MG/5ML ORAL SYRUP take one tsp po Q 6h ours prn cough CHERATUSSIN AC 100-10 MG/5ML ORAL SYRUP 699650 GUAIFENESIN-CODEINE Inactive PROPRANOLOL HCL 60 MG ORAL TABLET 1 PO Q D PROPRANOLOL HCL 60 MG ORAL TABLET 453475 PROPRANOLOL HCL Inactive TOPAMAX 50 MG ORAL TABLET take 1 tab po BID for migraines. 07/02 TOPAMAX 50 MG ORAL TABLET 540976 TOPIRAMATE Inacti ve TOPAMAX 25 MG ORAL TABLET 1 qHS x 1 week, then 1 BID x 1 week, then 1 qAM and 2 qHS x 1 week, then 2 BID (migraine prevention) TOPAMAX 25 MG ORAL TABLET 915334 TOPIRAMATE Inactive LYRICA 75 MG ORAL CAPSULE TAKE 1 CAPSULE BY MOUTH TWICE DAILY LYRICA 75 MG ORAL CAPSULE PREGABALIN Inactive SYMBICORT 160-4.5 MCG/ACT INHALATION AEROSOL 2 puffs bid wit h rinse after SYMBICORT 160-4.5 MCG/ACT INHALATION AEROSOL BUDESONIDE- FORMOTEROL FUMARATE Inactive PROMETHAZINE-CODEINE 6.25-10 MG/5ML ORAL SYRUP 1 tsp b y mouth every 8 hours prn cough PROMETHAZINE-CODEINE 6.25-10 MG/ 5ML ORAL SYRUP 535950 PROMETHAZINE-CODEINE Inactive CYMBALTA 30 MG ORAL CAPSULE DELAYED RELEASE PARTICLES 1 cap by mouth daily CYMBALTA 30 MG ORAL CAPSULE DELAYED RELE ASE PARTICLES 839366 DULOXETINE HCL Inactive PREMARIN 0.625 MG ORAL TABLET TAKE 1 TAB BY MOUTH DAILY PREMARIN 0.625 MG ORAL TABLET ESTROGENS CONJUGATED Inactive CHERATUSSIN AC 100-10 MG/5ML ORAL SYRUP 1 tsp by mouth every 4 hours as needed for cough CHERATUSSIN AC 100-10 MG/5ML ORAL SYRUP 9 12343 GUAIFENESIN-CODEINE Inactive PROMETHAZINE-CODEINE 6.25-10 MG/5ML ORAL SYRUP 1 tsp b y mouth every 6 hours if needed for cough PROMETHAZINE-CODEINE 6.25-10 MG/5ML ORAL SYRUP 516151 PROMETHAZINE-CODEINE Inactive CHERATUSSIN AC 100-10 MG/5ML ORAL SYRUP 1 tsp by mouth every 4 hours as needed for cough CHERATUSSIN AC 100-10 MG/5ML ORAL SYRUP 9 94648 GUAIFENESIN-CODEINE Inactive FLUTICASONE PROPIONATE 50 MCG/ACT NASAL SUSPENSION 1 t o 2 sprays each nostril daily FLUTICASONE PROPIONATE 50 MCG/AC T NASAL SUSPENSION 1974900 FLUTICASONE PROPIONATE Inactive PREDNISONE 20 MG ORAL TABLET 3 tab PO qd x 2d, 2 tab P O qd x 2d, 1 tab PO qd x 2d, 1/2 tab PO qd x 2d PREDNISONE 20 MG ORAL TAB LET 469131 PREDNISONE Inactive LEVOFLOXACIN 500 MG ORAL TABLET 1 tab PO daily x 10 days LEVOFLOXACIN 500 MG ORAL TABLET 900200 LEVOFLOXACIN Inactive CYCLOBENZAPRINE HCL 10 MG ORAL TABLET 1 tablet by mouth BID prn had pain CYCLOBENZAPRINE HCL 10 MG ORAL TABLET 671514 CYCLOBENZAPRINE HCL Inactive ZOCOR 40 MG ORAL TABLET 1 tab by mouth daily 4 ZOCOR 40 MG ORAL TABLET 271391 SIMVASTATIN Inactive TUSSIONEX PENNKINETIC ER 10-8 MG/5ML [...] FLUTICASONE PROPIO EFE 50 MCG/ACT NASAL SUSPENSION 9009744 FLUTICASONE PROPIONATE Inactive TUSSIONEX PENNKINETIC ER 10-8 [...] three days PREDNISONE 20 MG ORAL TABLET 161669 PREDNIS ONE Inactive PROAIR HFA 108 (90 BASE) MCG/ACT INHALATION AEROSOL SO LUTION 2 puffs four times a day as needed PROAIR HFA 108 (90 B ASE) MCG/ACT INHALATION AEROSOL SOLUTION ALBUTEROL SULFATE Inactive ZITHROMAX Z-REYNA 250 MG ORAL TABLET 2 today, then 1 daily for 4 d ays ZITHROMAX Z-REYNA 250 MG ORAL TABLET 771074 AZITHROMYCIN Inactive CEFDINIR 300 MG ORAL CAPSULE by mouth twice a day 2010 CEFDINIR 300 MG ORAL CAPSULE 113097 CEFDINIR Inactive CEFDINIR 300 MG ORAL CAPSULE by mouth twice a day 2010 CEFDINIR 300 MG ORAL CAPSULE 347601 CEFDINIR Inactive CEFDINIR 300 MG ORAL CAPSULE by mouth twice a day 2010 CEFDINIR 300 MG ORAL CAPSULE 975966 CEFDINIR Inactive CEFDINIR 300 MG ORAL CAPSULE by mouth twice a day 2011 CEFDINIR 300 MG ORAL CAPSULE 810181 CEFDINIR Inactive ZITHROMAX 250 MG ORAL TABLET 2 po today, then 1 po q days 2-5 20 03/07/07 ZITHROMAX 250 MG ORAL TABLET 846767 AZITHROMYCIN [place] ctive CEFDINIR 300 MG ORAL CAPSULE by mouth twice a day 2011 CEFDINIR 300 MG ORAL CAPSULE 416873 CEFDINIR Inactive PREDNISONE 20 MG ORAL TABLET 2 tabs daily for 3 days, 1 tab daily for 3 days, 1/2 tab daily for 2 days PREDNISONE 20 MG ORAL T ABLET 929175 PREDNISONE Inactive AVELOX 400 MG ORAL TABLET 1 tab by mouth daily AVELOX 400 MG ORAL TABLET 112264 MOXIFLOXACIN HCL Inactive AVELOX 400 MG ORAL TABLET 1 tab by mouth daily AVELOX 400 MG ORAL TABLET 486970 MOXIFLOXACIN HCL Inactive PREDNISONE 20 MG ORAL TABLET Take 3 tabs daily for 3 d ays, 2 tabs daily for 3 days, 1 tab daily for 3 days, 1/2 tab daily for 3 days 11/07 PREDNISONE 20 MG ORAL TABLET 842330 PREDNISONE Inactive LEVAQUIN 500 MG ORAL TABLET take one po QD LEVAQUIN 500 MG ORAL TABLET 850418 LEVOFLOXACIN Inactive AZITHROMYCIN 250 MG ORAL TABLET 2 po qd x 1 day, then 1 po q d x 4 days AZITHROMYCIN 250 MG ORAL TABLET 608645 AZITHROMY GIOVANNI Inactive MEDROL 4 MG ORAL TABLET THERAPY PACK 6 tabs on day 1, 5 tabs on day 2, 4 tabs on day 3, 3 tabs on day 4, 2 tabs on day 5, 1 tab on day 6 2013 MEDROL 4 MG ORAL TABLET THERAPY PACK 856565 METHYLPREDNISOLONE [place] ctive CHERATUSSIN AC 100-10 MG/5ML ORAL SYRUP 5ml po q6hr PRN Cough 20 13/04/14 CHERATUSSIN AC 100-10 MG/5ML ORAL SYRUP 425748 GUAIFENE SIN-CODEINE Inactive TRIAMCINOLONE ACETONIDE 0.1 % EXTERNAL CREAM apply three roger es daily prn rash TRIAMCINOLONE ACETONIDE 0.1 % EXTERNAL CREAM 101 4314 TRIAMCINOLONE ACETONIDE Inactive AZITHROMYCIN 250 MG ORAL TABLET 2 po qd x 1 day, then 1 po q d x 4 days AZITHROMYCIN 250 MG ORAL TABLET 261228 AZITHROMY GIOVANNI Inactive MEDROL 4 MG ORAL TABLET THERAPY PACK 6 pills x 1 day, then 5 pills x 1 day then 4 pills x 1 day, then 3 pills x 1 day, then 2 pills x 1 day, then 1 pill x 1 day, then stop MEDROL 4 MG ORAL TABLET THERAPY PACK 030492 METHYLPREDNISOLONE Inactive AMOXICILLIN 500 MG ORAL CAPSULE 1 tab by mouth 3 times daily x 10 days AMOXICILLIN 500 MG ORAL CAPSULE 438431 AMOXICILL IN Inactive AMOXICILLIN 500 MG ORAL CAPSULE 1 tab by mouth 3 times daily x 10 days AMOXICILLIN 500 MG ORAL CAPSULE 133881 AMOXICILL IN Inactive ZITHROMAX 250 MG ORAL TABLET 2 po today, then 1 po q days 2-5 20 12/08/14 ZITHROMAX 250 MG ORAL TABLET 211929 AZITHROMYCIN [place] ctive AUGMENTIN 875-125 MG ORAL TABLET 1 po BID x 10 days 20 13/01/20 AUGMENTIN 875-125 MG ORAL TABLET 113086 AMOXICILLIN-POT CLAVULANATE Inactive ZITHROMAX Z-REYNA 250 MG ORAL TABLET 2 today, then 1 daily for 4 d ays ZITHROMAX Z-REYNA 250 MG ORAL TABLET 180881 AZITHROMYCIN Inactive ZITHROMAX 250 MG ORAL TABLET 2 po today, then 1 po q days 2-5 20 14/03/21 ZITHROMAX 250 MG ORAL TABLET 413360 AZITHROMYCIN [place] ctive ZITHROMAX Z-REYNA 250 MG ORAL TABLET 2 today, then 1 daily for 4 d ays ZITHROMAX Z-REYNA 250 MG ORAL TABLET 685729 AZITHROMYCIN Inactive CEFDINIR 300 MG ORAL CAPSULE 1 po BID x 10 days 06/21 CEFDINIR 300 MG ORAL CAPSULE 443473 CEFDINIR Inactive ZITHROMAX 250 MG ORAL TABLET 2 po today, then 1 po q days 2-5 20 13/08/10 ZITHROMAX 250 MG ORAL TABLET 905385 AZITHROMYCIN [place] ctive LEVAQUIN 500 MG ORAL TABLET 1 tablet by mouth daily 13/09/24 LEVAQUIN 500 MG ORAL TABLET 081358 LEVOFLOXACIN Inactive SINGULAIR 10 MG ORAL TABLET 1 po qday for allergies 20 14/01/12 SINGULAIR 10 MG ORAL TABLET 812059 MONTELUKAST SODIUM Inactive AMOXICILLIN 500 MG ORAL CAPSULE 2 po BID x 10 days 201 09/29/08 AMOXICILLIN 500 MG ORAL CAPSULE 024604 AMOXICILLIN Inactive PREDNISONE 20 MG ORAL TABLET 2 tabs daily for 3 days, 1 tab daily for 3 days, 1/2 tab daily for 2 days PREDNISONE 20 MG ORAL T ABLET 932059 PREDNISONE Inactive ZITHROMAX Z-REYNA 250 MG ORAL TABLET 2 today, then 1 daily for 4 d ays ZITHROMAX Z-REYNA 250 MG ORAL TABLET 674146 AZITHROMYCIN Inactive PREDNISONE 20 MG ORAL TABLET 2 tabs daily for 3 days, 1 tab daily for 3 days, 1/2 tab daily for 2 days PREDNISONE 20 MG ORAL T ABLET 827675 PREDNISONE Inactive ZITHROMAX 250 MG ORAL TABLET 2 po today, then 1 po q days 2-5 20 14/09/04 ZITHROMAX 250 MG ORAL TABLET 458400 AZITHROMYCIN [place] [facility] AMOXICILLIN 500 MG ORAL CAPSULE 1 cap by mouth three times a day AMOXICILLIN 500 MG ORAL CAPSULE 614838 AMOXICILLIN Inactive TERBINAFINE HCL 250 MG ORAL TABLET 1 qDay for nail fungus 7 TERBINAFINE HCL 250 MG ORAL TABLET 505757 TERBINAFINE HCL Inact nael AUGMENTIN 875-125 MG ORAL TABLET 1 po BID x 10 days 16/03/22 AUGMENTIN 875-125 MG ORAL TABLET 371006 AMOXICILLIN-POT CLAVULANATE Inactive PREDNISONE 20 MG ORAL TABLET 2 po qd x 5 days PREDNISONE 20 MG ORAL TABLET 972323 PREDNISONE Inactive Vital Signs Date Name Value [...] Metabolic Panel - Chem istry blood glucose 101 mg/dL 65-110 carbon dioxide, venous blood 30.3 mmol/L 21.0-32 .0 chloride, serum 100 mmol/L 98-107 potassium, serum 3.6 mmol/L 3.5-5.2 sodium, serum 139 mmol/L 750-840 2217/03/19 creatinine, serum 0.96 mg/dL 0.60-1.30 urea nitrogen, blood 10 mg/dL 7-18 calcium, serum 9.4 mg/dL 8.5-10.1 Encounters Code Encounter Date Provider Facility CPT-77250 [id number] Vst-Est Level III 11:12:16 CDT Br tami Bess [facility] CPT-01013 Level 3 Est. Patient 11:34:49 [employer] SERVICES INTERN Perez Mora MD [facility] CPT-43274 Level 4 Est. Patient 09:51:32 [employer] SERVICES INTERN Carlton rich MD [facility] CPT-33740 Level 3 Est. Patient 10:26:00 TAX SERVICES INTERN Elise Are ll [facility] CPT-09783 Level 3 Est. Patient 13:35:41 TAX SERVICES INTERN Carlton rich MD [facility] CPT-97660 Level 3 Est. Patient 10:03:52 [employer] SERVICES INTERN Carlton rich MD [facility] CPT-13777 Level 3 Est. Patient 12:17:50 CDT Hugo Restrepo MD [facility] CPT-19752 Level 3 Est. Patient 13:42:38 CDT Elise Are [facility] CPT-85019 Level 3 Est. Patient 13:23:51 CDT Diya cobian [facility] CPT-38019 Level 3 Est. Patient 14:22:19 [employer] SERVICES INTERN Diya cobian [facility] CPT-79198 Level 3 Est. Patient 10:11:46 CDT Carlton rich MD [facility] CPT-26828 Level 3 Est. Patient 17:29:43 CDT Elise Are [facility] CPT-58650 Level 3 Est. Patient 11:58:06 CDT Elise Are [facility] CPT-38561 Level 4 Est. Patient 14:36:51 CDT Carlton rich MD [facility] CPT-06398 Level 3 Est. Patient 18:16:00 TAX SERVICES INTERN Blaine HERNANDEZ [facility] CPT-83149 Level 3 Est. Patient 09:45:49 T[employer] SERVICES INTERN Carlton rich MD [facility] CPT-58520 Level 3 Est. Patient 13:19:20 CDT Carlton rich MD [facility]-59605 Level 3 Est. Patient 13:06:43 CDT Ridge tam DO [facility] CPT-98145 Level 3 Est. Patient 10:03:07 CDT Perez Mora MD [facility]-41260 Level 3 Est. Patient 19:50:35 T[employer] SERVICES INTERN Carlton rich MD [facility] CPT-69175 Level 4 Est. Patient 18:05:01 T[employer] SERVICES INTERN Carlton rich MD [facility] CPT-92530 Level 3 Est. Patient 10:45:55 T[employer] SERVICES INTERN Hugo Restrepo MD [facility]-08741 Level 3 Est. Patient 14:12:49 CDT Griffin HERNANDEZ [facility]-77367 Level 3 Est. Patient 17:37:24 CDT Carlton rich MD [facility]-82281 Level 3 Est. Patient 16:51:54 CDT Carlton rich MD [facility]-78089 Level 3 Est. Patient 12:18:11 CDT Hugo Restrepo MD [facility]-02592 Level 3 Est. Patient 11:30:25 CDT Marcy crisostomo MD PhD [facility]-43791 Level 3 Est. Patient 12:00:47 TAX SERVICES INTERN Carlton rich MD [facility] CPT-54681 Level 3 Est. Patient 16:31:06 T[employer] SERVICES INTERN Carlton rich MD [facility]-77774 Level 3 Est. Patient 16:23:24 TAX SERVICES INTERN Ridge tam DO [facility] CPT-45159 Level 3 Est. Patient 12:34:12 CDT Carlton rich MD [facility]-38396 Level 2 Est. Patient 15:43:33 CDT Robi armstrong MD [facility] CPT-73701 Level 4 Est. Patient 14:04:44 CDT Carlton rich MD [facility] CPT-25429 Level 3 Est. Patient 05:47:59 CDT Ridge tam DO [facility] CPT-97787 Level 3 Est. Patient 13:12:53 [employer] INTERN Carlton rich MD [facility] CPT-05556 Level 3 Est. Patient 14:26:53 CDT Hugo [...] CPT-J1100 Decadron 6mg (Dexamethasone) 14:32:13 CDT 2 CPT-21575 Hip bilat min 2V w AP pelvis 13:16:20 CDT 2 CPT-17269 Pelvis only 13:07:33 CDT CPT-13032 Spec Collection and Handling Fee 11:25:12 C DT CPT-20746 Fluzone Quadrivalent Intramuscular Suspe nsion 0.5 ML 14:31:55 CDT CPT-44159 Abx/Therapy Injection 13:28:47 TAX SERVICES INTERN CPT-J2930 Solu Medrol 125 mg (Methyl Prednisolone Sodium Succinate) 12:00:47 [employer] INTERN CPT-94184 Venipuncture Draw Fee 11:33:31 CDT CPT-35717 EKG Trac and Interp 11:21:09 CDT CPT-32425 Chest 2V Frontal and Lat 11:21:09 CDT 12/15 CPT-04216 Venipuncture Draw Fee 08:02:34 CDT CPT-13687 Chest 2V Frontal and Lat 05:47:59 CDT 06/05
--- OUTSIDE RECORDS SUMMARY | 2019-10-08 09:35 | XMS REPORT | Clinical Summary ---
Author Author Caitlin, Juliana Martinez Organization [facility] Address Unknown Phone Unavailable Allergies, Adverse [...] po q d x 4 days AZITHROMYCIN [id number] Active Ridge Bess DO Active PREDNISONE 20 MG ORAL TABLET two tabs by mouth today, then one tab by mouth days two and three and four PREDNISONE 88730294276 Active B basil Bess DO Active PREDNISONE 20 MG ORAL TABLET 2 po qd x 5 days P REDNISONE 56743302219 No Longer Active Perez Mora MD Active PROAIR HFA 108 (90 BASE) MCG/ACT INHALATION AEROSOL SO LUTION 2 puffs four times a day as needed ALBUTEROL SULFATE 45800234406 No Long er Active Becky FUENTES Active ASPIRIN 81 MG ORAL TABLET 1 po qd ASPIRIN 59805931194 Active Carlton Hu MD Active PREDNISONE 20 MG ORAL TABLET 1 tab twice daily for 3 d ay, then one daily for three days PREDNISONE 94988562511 No Longer Active Carlton Hu MD Active AUGMENTIN 875-125 MG ORAL TABLET 1 po BID x 10 days 20 16/03/22 AMOXICILLIN-POT CLAVULANATE 15672141182 No Longer Active Elise Garcia APRN Active TERBINAFINE HCL 250 MG ORAL TABLET 1 qDay for nail fungus 7 TERBINAFINE HCL 15097099824 No Longer Active Carlton Hu MD A ctive TUSSIONEX PENNKINETIC ER 10-8 MG/5ML ORAL SUSPENSION E XTENDED RELEASE 5ml po q12hr PRN Cough HYDROCOD POLST-CHLORPHEN POLST 19143790796 Active Ridge Bess DO Active AMOXICILLIN 500 MG ORAL CAPSULE 1 cap by mouth three times a day AMOXICILLIN 05642485761 No Longer Active Carlton Hu MD Active ELMIRON 100 MG ORAL CAPSULE 2 tablets in the am and 1 tablet at hs PENTOSAN POLYSULFATE SODIUM 24434392292 No Longer Active Roebrt Hu MD Active MUCINEX D 60-600 MG ORAL TABLET EXTENDED RELEASE 12 HOUR 1 t ab po q am PSEUDOEPHEDRINE-GUAIFENESIN 00332648627 No Longer Act nael Carlton Hu MD Active MUCINEX DM MAXIMUM STRENGTH 60-1200 MG ORAL TABLET EXT ENDED RELEASE 12 HOUR 1 tab po q am DEXTROMETHORPHAN-GUAIFENESIN 45263583357 No Longer Active Carlton Hu MD Active TUSSIONEX PENNKINETIC ER 10-8 MG/5ML ORAL SUSPENSION E XTENDED RELEASE 5ml po q12hr PRN Cough HYDROCOD POLST-CHLORPHEN POLST 5 1320402812 No Longer Active Carlton Hu MD Active POTASSIUM CHLORIDE ER 20 MEQ ORAL TABLET EXTENDED RELE ASE Take 1 by mouth 4 times daily for 7 days POTASSIUM CHLORIDE 65299608808 No Longer Active Carlton Hu MD Active ZITHROMAX 250 MG ORAL TABLET 2 po today, then 1 po q days 2-5 20 14/09/04 AZITHROMYCIN 28885201525 No Longer Active Elise Garcia APRN Active TUSSIONEX PENNKINETIC ER 10-8 MG/5ML ORAL SUSPENSION E XTENDED RELEASE 5 ml twice a day as needed for cough HYDROCOD POLST-CHLORPH EN POLST 12863166033 No Longer Active Elise Garcia APRN Active MONTELUKAST SODIUM 10 MG ORAL TABLET 1 po daily for Allergy MONTELUKAST SODIUM 23137030720 Active Carlton Hu MD Ac tive TUSSIONEX PENNKINETIC ER 10-8 MG/5ML ORAL SUSPENSION E XTENDED RELEASE 5ml po q12hr PRN Cough HYDROCOD POLST-CHLORPHEN POLST 5 6751143459 No Longer Active Hugo Restrepo MD Active GABAPENTIN 100 MG ORAL CAPSULE 1 po BID for fibromyalgia GABAPENTIN 52369508825 Active Carlton Hu MD Active LYRICA 100 MG ORAL CAPSULE Take 1 tab po BID for fibromyalgia 20 11/08/21 PREGABALIN 35432796840 No Longer Active Elise Arell CAR SHUNTER A ctive PREDNISONE 20 MG ORAL TABLET 2 tabs daily for 3 days, 1 tab daily for 3 days, 1/2 tab daily for 2 days PREDNISONE 61703372535 No Longer Active Jillina Frazell CAR SHUNTER Active TUSSIONEX PENNKINETIC ER 10-8 MG/5ML ORAL SUSPENSION E XTENDED RELEASE 5 mL PO q 12 hrs PRN cough HYDROCOD POLST-CHLORPHEN POLST 900412 85559 No Longer Active Jillina Frazell CAR SHUNTER Active FLUTICASONE PROPIONATE 50 MCG/ACT NASAL SUSPENSION 2 s prays each nostril daily until bottle is empty FLUTICASONE PROPIONATE 765661924 99 No Longer Active Jillina Frazell CAR SHUNTER Active ASMANEX 60 METERED DOSES 220 MCG/INH INHALATION AEROSO L POWDER BREATH ACTIVATED 1 puff bid with rinse after MOMETASONE FUROATE 7913047 4102 No Longer Active Jillina Frazell CAR SHUNTER Active ZITHROMAX Z-REYNA 250 MG ORAL TABLET 2 today, then 1 daily for 4 d ays AZITHROMYCIN 26205485661 No Longer Active Elise Arell CAR SHUNTER Active TUSSIONEX PENNKINETIC ER 10-8 MG/5ML ORAL SUSPENSION E XTENDED RELEASE 5ml po q12hr PRN Cough HYDROCOD POLST-CHLORPHEN POLST 5 5210544725 No Longer Active Elise Arell CAR SHUNTER Active PREDNISONE 20 MG ORAL TABLET 2 tabs daily for 3 days, 1 tab daily for 3 days, 1/2 tab daily for 2 days PREDNISONE 34969928374 No Longer Active Jillina Frazell CAR SHUNTER Active AMOXICILLIN 500 MG ORAL CAPSULE 2 po BID x 10 days 201 09/29/08 AMOXICILLIN 80717283714 No Longer Active Jillina Frazell CAR SHUNTER Act nael SINGULAIR 10 MG ORAL TABLET 1 po qday for allergies 20 14/01/12 MONTELUKAST SODIUM 88534859996 No Longer Active Carlton Hu MD Active LEVAQUIN 500 MG ORAL TABLET 1 tablet by mouth daily 13/09/24 LEVOFLOXACIN 44209113507 No Longer Active Carlton Hu MD Acti ve FLUTICASONE PROPIONATE 50 MCG/ACT NASAL SUSPENSION 2 s prays each nostril daily for 2 weeks, then 1 spray each nostril daily. FLUTICASONE PROPIONATE 16980318284 Active Elise Areseema CAR SHUNTER Active ZITHROMAX 250 MG ORAL TABLET 2 po today, then 1 po q days 2-5 20 13/08/10 AZITHROMYCIN 02357755353 No Longer Active Elise Garcia CAR SHUNTER Active XANAX 0.5 MG ORAL TABLET one tablet by mouth daily prn anxiety 2015 ALPRAZOLAM 13031173052 Active ALFREDO Holly Active CYMBALTA 30 MG ORAL CAPSULE DELAYED RELEASE PARTICLES 1 cap by mouth daily for depression DULOXETINE HCL 63279295909 Active Carlton beltrán MD Active CEFDINIR 300 MG ORAL CAPSULE 1 po BID x 10 days CEFDINIR 21136769034 No Longer Active Carlton Hu MD Active ZOCOR 40 MG ORAL TABLET 1 tab by mouth daily SI MVASTATIN 74824484675 No Longer Active Carlton Hu MD Active CYCLOBENZAPRINE HCL 10 MG ORAL TABLET 1 tablet by mouth BID prn had pain CYCLOBENZAPRINE HCL 34349298156 No Longer Active Jayden Hu MD Active LEVOFLOXACIN 500 MG ORAL TABLET 1 tab PO daily x 10 days LEVOFLOXACIN 43178813986 No Longer Active Carlton Hu MD Acti ve PREDNISONE 20 MG ORAL TABLET 3 tab PO qd x 2d, 2 tab P O qd x 2d, 1 tab PO qd x 2d, 1/2 tab PO qd x 2d PREDNISONE 29773351084 No Lo nger Active Carlton Hu MD Active FLUTICASONE PROPIONATE 50 MCG/ACT NASAL SUSPENSION 1 t o 2 sprays each nostril daily FLUTICASONE PROPIONATE 89354324069 No Longer Ac tive Blaine HERNANDEZ Active CHERATUSSIN AC 100-10 MG/5ML ORAL SYRUP 1 tsp by mouth every 4 hours as needed for cough GUAIFENESIN-CODEINE 16406712880 No Longe r Active Blaine HERNANDEZ Active PROMETHAZINE-CODEINE 6.25-10 MG/5ML ORAL SYRUP 1 tsp b y mouth every 6 hours if needed for cough PROMETHAZINE-CODEINE 80863222247 No Longer Active Blaine HERNANDEZ Active CHERATUSSIN AC 100-10 MG/5ML ORAL SYRUP 1 tsp by mouth every 4 hours as needed for cough GUAIFENESIN-CODEINE 56238717600 No Longe r Active Blaine HERNANDEZ Active ZITHROMAX Z-REYNA 250 MG ORAL TABLET 2 today, then 1 daily for 4 d ays AZITHROMYCIN 56510685440 No Longer Active Columba Raida Act nael ZITHROMAX 250 MG ORAL TABLET 2 po today, then 1 po q days 2-5 20 14/03/21 AZITHROMYCIN 12074786201 No Longer Active Carlton Hu MD Active ZITHROMAX Z-REYNA 250 MG ORAL TABLET 2 today, then 1 daily for 4 d ays AZITHROMYCIN 79077518040 No Longer Active Columba Raida Act nael AUGMENTIN 875-125 MG ORAL TABLET 1 po BID x 10 days 20 13/01/20 AMOXICILLIN-POT CLAVULANATE 92473431602 No Longer Active Diya De Guzman APRN Active ZITHROMAX 250 MG ORAL TABLET 2 po today, then 1 po q days 2-5 20 12/08/14 AZITHROMYCIN 60686300691 No Longer Active Carlton Hu MD Active TRAMADOL HCL 50 MG ORAL TABLET 1 po tid with ES Tylenol TRAMADOL HCL 08481241152 Active ALFREDO Holly Active PREMARIN 0.625 MG ORAL TABLET TAKE 1 TAB BY MOUTH DAILY ESTROGENS CONJUGATED 79812677737 No Longer Active Ridge W Shahriar DO A ctive CYMBALTA 30 MG ORAL CAPSULE DELAYED RELEASE PARTICLES 1 cap by mouth daily DULOXETINE HCL 98655096999 No Longer Active Ridge Ya ee DO Active AMOXICILLIN 500 MG ORAL CAPSULE 1 tab by mouth 3 times daily x 10 days AMOXICILLIN 33500096031 No Longer Active Carlton bustamante MD Active AMOXICILLIN 500 MG ORAL CAPSULE 1 tab by mouth 3 times daily x 10 days AMOXICILLIN 30287110689 No Longer Active Carlton bustamante MD Active PROMETHAZINE-CODEINE 6.25-10 MG/5ML ORAL SYRUP 1 tsp b y mouth every 8 hours prn cough PROMETHAZINE-CODEINE 33173541908 No Longer Acti ve Carlton Hu MD Active MEDROL 4 MG ORAL TABLET THERAPY PACK 6 pills x 1 day, then 5 pills x 1 day then 4 pills x 1 day, then 3 pills x 1 day, then 2 pills x 1 day, then 1 pill x 1 day, then stop METHYLPREDNISOLONE 88452265784 No Long er Active Perez Mora MD Active AZITHROMYCIN 250 MG ORAL TABLET 2 po qd x 1 day, then 1 po q d x 4 days AZITHROMYCIN 31325367888 No Longer Active Perez Ambriz MD Active SYMBICORT 160-4.5 MCG/ACT INHALATION AEROSOL 2 puffs bid wit h rinse after BUDESONIDE-FORMOTEROL FUMARATE 30383087813 N o Longer Active Perez Mora MD Active LYRICA 75 MG ORAL CAPSULE TAKE 1 CAPSULE BY MOUTH TWICE DAILY PREGABALIN 09179374307 No Longer Active Carlton Hu MD Acti ve TOPAMAX 25 MG ORAL TABLET 1 qHS x 1 week, then 1 BID x 1 week, then 1 qAM and 2 qHS x 1 week, then 2 BID (migraine prevention) T OPIRAMATE 86165303751 No Longer Active Jerica FUENTES Active TOPAMAX 50 MG ORAL TABLET take 1 tab po BID for migraines. 07/02 TOPIRAMATE 07561174807 No Longer Active Jerica FUENTES Active TOPAMAX 100 MG ORAL TABLET Take 1 tablet po bid TO PIRAMATE 13848787658 Active Carlton Hu MD Active TRIAMCINOLONE ACETONIDE 0.1 % EXTERNAL CREAM apply three roger es daily prn rash TRIAMCINOLONE ACETONIDE 58254224499 No Longer Active Carlton Hu MD Active PAXIL 40 MG ORAL TABLET take 1 tab po qday for depression 0 PAROXETINE HCL 86018816794 Active Perez Mora MD Active CHERATUSSIN AC 100-10 MG/5ML ORAL SYRUP 5ml po q6hr PRN Cough 20 13/04/14 GUAIFENESIN-CODEINE 25534439983 No Longer Active Carlton Hu MD Active MEDROL 4 MG ORAL TABLET THERAPY PACK 6 tabs on day 1, 5 tabs on day 2, 4 tabs on day 3, 3 tabs on day 4, 2 tabs on day 5, 1 tab on day 6 2013 METHYLPREDNISOLONE 82991850001 No Longer Active Perez Mora MD Active AZITHROMYCIN 250 MG ORAL TABLET 2 po qd x 1 day, then 1 po q d x 4 days AZITHROMYCIN 19119337722 No Longer Active Perez Ambriz MD Active PROPRANOLOL HCL 60 MG ORAL TABLET 1 PO Q D PROPRANOLOL HCL 08068894286 No Longer Active Perez Mora MD Activ e CHERATUSSIN AC 100-10 MG/5ML ORAL SYRUP take one tsp po Q 6h ours prn cough GUAIFENESIN-CODEINE 93009335945 No Longer Active Zia Mora MD Active AUGMENTIN 875-125 MG ORAL TABLET 1 tab by mouth twice daily with food AMOXICILLIN-POT CLAVULANATE 78882095646 No Longer Act nael Perez Mora MD Active CHERATUSSIN AC 100-10 MG/5ML ORAL SYRUP 1 tsp by mouth every 4 hours as needed for cough GUAIFENESIN-CODEINE 92779406605 No Longe r Active Hugo Restrepo MD Active ACETAMINOPHEN-CODEINE #3 300-30 MG ORAL TABLET 1 PO Q 4-6 HRS IL N PAIN ACETAMINOPHEN-CODEINE 10942457054 No Longer Active Hugo Restrepo MD Active LEVAQUIN 500 MG ORAL TABLET take one po QD LEVO FLOXACIN 70768750954 No Longer Active Griffin HERNANDEZ Active PREDNISONE 20 MG ORAL TABLET Take 3 tabs daily for 3 d ays, 2 tabs daily for 3 days, 1 tab daily for 3 days, 1/2 tab daily for 3 days 11/07 PREDNISONE 10052402276 No Longer Active Carlton Hu MD Acti ve AVELOX 400 MG ORAL TABLET 1 tab by mouth daily MOXIFLOXACIN HCL 54161369886 No Longer Active Carlton Hu MD Active CHERATUSSIN AC 100-10 MG/5ML ORAL SYRUP 1 tsp by mouth every 4 hours as needed for cough GUAIFENESIN-CODEINE 17310880645 No Longe r Active Hugo Restrepo MD Active AVELOX 400 MG ORAL TABLET 1 tab by mouth daily MOXIFLOXACIN HCL 59620397222 No Longer Active Marcy De La Rosa MD PhD Active TERBINAFINE HCL 250 MG ORAL TABLET 1 qDay T ERBINAFINE HCL 70295509626 No Longer Active Marcy De La Rosa MD PhD Active CHERATUSSIN AC 100-10 MG/5ML ORAL SYRUP 1 tsp by mouth every 4 hours as needed for cough GUAIFENESIN-CODEINE 09993347489 No Longe r Active Marcy De La Rosa MD PhD Active AVELOX 400 MG ORAL TABLET 1 tab by mouth daily MOXIFLOXACIN HCL 65504210626 No Longer Active Marcy De La Rosa MD PhD Active HYDROCODONE-ACETAMINOPHEN 5-325 MG ORAL TABLET 1 po q 6hr PRN co ugh HYDROCODONE-ACETAMINOPHEN 39801832228 No Longer Active Marcy De La Rosa MD PhD Active PREDNISONE 20 MG ORAL TABLET 2 tabs daily for 3 days, 1 tab daily for 3 days, 1/2 tab daily for 2 days PREDNISONE 66240177197 No Longer Active Carlton Hu MD Active CEFDINIR 300 MG ORAL CAPSULE by mouth twice a day 2011 CEFDINIR 14364993385 No Longer Active Carlton Hu MD Acti ve HYDROCHLOROTHIAZIDE 25 MG ORAL TABLET 1 TAB PO DAILY HYDROCHLOROTHIAZIDE 50533048580 Active Carlton Hu MD A ctive ACETAMINOPHEN-CODEINE #3 300-30 MG ORAL TABLET 1 tablet po q 4-6 hrs prn pain ACETAMINOPHEN-CODEINE 41697330730 No Longer Active Ridge Bess DO Active ZITHROMAX 250 MG ORAL TABLET 2 po today, then 1 po q days 2-5 20 03/07/07 AZITHROMYCIN 07326934976 No Longer Active Carlton Hu MD Active CHERATUSSIN AC 100-10 MG/5ML ORAL SYRUP take 1 tsp po q4-6 h ours prn cough GUAIFENESIN-CODEINE 24222160528 No Longer Active Jayden Hu MD Active ACETAMINOPHEN-CODEINE #3 300-30 MG ORAL TABLET 1 PO Q 4-6 HR PRN PAIN ACETAMINOPHEN-CODEINE 89479797451 No Longer Active Da raimundo Hu MD Active LORTAB 7.5-500 MG/15ML ORAL ELIXIR 7.5 ml po q 4 hour prn cough HYDROCODONE-ACETAMINOPHEN 80265880902 No Longer Active Carlton Hu MD Active PREDNISONE 20 MG ORAL TABLET 1 po bid 3 days, then 1 po q day 3 days PREDNISONE 19835664444 No Longer Active Carlton Hu MD Active CEFDINIR 300 MG ORAL CAPSULE by mouth twice a day 2011 CEFDINIR 69151869201 No Longer Active Carlton Hu MD Acti ve CEFDINIR 300 MG ORAL CAPSULE by mouth twice a day 2010 CEFDINIR 11374843283 No Longer Active Carlton Hu MD Acti ve CEFDINIR 300 MG ORAL CAPSULE by mouth twice a day 2010 CEFDINIR 18206644332 No Longer Active Carlton Hu MD Acti ve TESSALON PERLES 100 MG ORAL CAPSULE 1 tablet by mouth 3 times daily as needed for cough BENZONATATE 51814175643 No Longer Active Carlton Hu MD Active CEFDINIR 300 MG ORAL CAPSULE by mouth twice a day 2010 CEFDINIR 05624070438 No Longer Active Carlton Hu MD Acti ve ZITHROMAX Z-REYNA 250 MG ORAL TABLET 2 today, then 1 daily for 4 d ays AZITHROMYCIN 21172360071 No Longer Active Hugo Restrepo MD Active TESSALON PERLES 100 MG ORAL CAPSULE 1 tablet by mouth 3 times daily as needed for cough TESSALON PERLES 100 MG ORAL CAPSULE 12289 7 BENZONATATE Inactive PREDNISONE 20 MG ORAL TABLET 1 po bid 3 days, then 1 po q day 3 days PREDNISONE 20 MG ORAL TABLET 398395 PREDNISONE Gerer ctive LORTAB 7.5-500 MG/15ML ORAL ELIXIR 7.5 [...] cough CHERATUSSIN AC 100-10 MG/5ML ORAL SYRUP 089852 GUAIFENESIN-CODEINE Inactive ACETAMINOPHEN-CODEINE #3 300-30 MG ORAL TABLET 1 tablet po q 4-6 hrs prn pain ACETAMINOPHEN-CODEINE #3 300-30 MG ORAL TABLET ACETAMINOPHEN-CODEINE Inactive HYDROCODONE-ACETAMINOPHEN 5-325 MG ORAL TABLET 1 po q 6hr PRN co ugh HYDROCODONE-ACETAMINOPHEN 5-325 MG ORAL TABLET 872957 HYDROCODONE-ACETAMINOPHEN Inactive AVELOX 400 MG ORAL TABLET 1 tab by mouth daily AVELOX 400 MG ORAL TABLET 441588 MOXIFLOXACIN HCL Inactive CHERATUSSIN AC 100-10 MG/5ML ORAL SYRUP 1 tsp by mouth every 4 hours as needed for cough CHERATUSSIN AC 100-10 MG/5ML ORAL SYRUP 9 70284 GUAIFENESIN-CODEINE Inactive TERBINAFINE HCL 250 MG ORAL TABLET 1 qDay 07/08 TERBINAFINE HCL 250 MG ORAL TABLET 008736 TERBINAFINE HCL Inactive CHERATUSSIN AC 100-10 MG/5ML ORAL SYRUP 1 tsp by mouth every 4 hours as needed for cough CHERATUSSIN AC 100-10 MG/5ML ORAL SYRUP 9 53982 GUAIFENESIN-CODEINE Inactive ACETAMINOPHEN-CODEINE #3 300-30 MG ORAL TABLET 1 PO Q 4-6 HRS IL N PAIN ACETAMINOPHEN-CODEINE #3 300-30 MG ORAL TABLET ACETAMINOPHEN-CODEINE Inactive CHERATUSSIN AC 100-10 MG/5ML ORAL SYRUP 1 tsp by mouth every 4 hours as needed for cough CHERATUSSIN AC 100-10 MG/5ML ORAL SYRUP 9 92220 GUAIFENESIN-CODEINE Inactive AUGMENTIN 875-125 MG ORAL TABLET 1 tab by mouth twice daily with food AUGMENTIN 875-125 MG ORAL TABLET 813148 AMOXICIL MADELINE-POT CLAVULANATE Inactive CHERATUSSIN AC 100-10 MG/5ML ORAL SYRUP take one tsp po Q 6h ours prn cough CHERATUSSIN AC 100-10 MG/5ML ORAL SYRUP 516710 GUAIFENESIN-CODEINE Inactive PROPRANOLOL HCL 60 MG ORAL TABLET 1 PO Q D PROPRANOLOL HCL 60 MG ORAL TABLET 865750 PROPRANOLOL HCL Inactive TOPAMAX 50 MG ORAL TABLET take 1 tab po BID for migraines. 07/02 TOPAMAX 50 MG ORAL TABLET 256639 TOPIRAMATE Inacti ve TOPAMAX 25 MG ORAL TABLET 1 qHS x 1 week, then 1 BID x 1 week, then 1 qAM and 2 qHS x 1 week, then 2 BID (migraine prevention) TOPAMAX 25 MG ORAL TABLET 728663 TOPIRAMATE Inactive LYRICA 75 MG ORAL CAPSULE TAKE 1 CAPSULE BY MOUTH TWICE DAILY LYRICA 75 MG ORAL CAPSULE PREGABALIN Inactive SYMBICORT 160-4.5 MCG/ACT INHALATION AEROSOL 2 puffs bid wit h rinse after SYMBICORT 160-4.5 MCG/ACT INHALATION AEROSOL BUDESONIDE- FORMOTEROL FUMARATE Inactive PROMETHAZINE-CODEINE 6.25-10 MG/5ML ORAL SYRUP 1 tsp b y mouth every 8 hours prn cough PROMETHAZINE-CODEINE 6.25-10 MG/ 5ML ORAL SYRUP 633858 PROMETHAZINE-CODEINE Inactive CYMBALTA 30 MG ORAL CAPSULE DELAYED RELEASE PARTICLES 1 cap by mouth daily CYMBALTA 30 MG ORAL CAPSULE DELAYED RELE ASE PARTICLES 317849 DULOXETINE HCL Inactive PREMARIN 0.625 MG ORAL TABLET TAKE 1 TAB BY MOUTH DAILY PREMARIN 0.625 MG ORAL TABLET ESTROGENS CONJUGATED Inactive CHERATUSSIN AC 100-10 MG/5ML ORAL SYRUP 1 tsp by mouth every 4 hours as needed for cough CHERATUSSIN AC 100-10 MG/5ML ORAL SYRUP 9 52320 GUAIFENESIN-CODEINE Inactive PROMETHAZINE-CODEINE 6.25-10 MG/5ML ORAL SYRUP 1 tsp b y mouth every 6 hours if needed for cough PROMETHAZINE-CODEINE 6.25-10 MG/5ML ORAL SYRUP 912098 PROMETHAZINE-CODEINE Inactive CHERATUSSIN AC 100-10 MG/5ML ORAL SYRUP 1 tsp by mouth every 4 hours as needed for cough CHERATUSSIN AC 100-10 MG/5ML ORAL SYRUP 9 00541 GUAIFENESIN-CODEINE Inactive FLUTICASONE PROPIONATE 50 MCG/ACT NASAL SUSPENSION 1 t o 2 sprays each nostril daily FLUTICASONE PROPIONATE 50 MCG/AC T NASAL SUSPENSION 7006562 FLUTICASONE PROPIONATE Inactive PREDNISONE 20 MG ORAL TABLET 3 tab PO qd x 2d, 2 tab P O qd x 2d, 1 tab PO qd x 2d, 1/2 tab PO qd x 2d PREDNISONE 20 MG ORAL TAB LET 151373 PREDNISONE Inactive LEVOFLOXACIN 500 MG ORAL TABLET 1 tab PO daily x 10 days LEVOFLOXACIN 500 MG ORAL TABLET 629035 LEVOFLOXACIN Inactive CYCLOBENZAPRINE HCL 10 MG ORAL TABLET 1 tablet by mouth BID prn had pain CYCLOBENZAPRINE HCL 10 MG ORAL TABLET 228389 CYCLOBENZAPRINE HCL Inactive ZOCOR 40 MG ORAL TABLET 1 tab by mouth daily 4 ZOCOR 40 MG ORAL TABLET 127890 SIMVASTATIN Inactive TUSSIONEX PENNKINETIC ER 10-8 MG/5ML [...] FLUTICASONE PROPIO EFE 50 MCG/ACT NASAL SUSPENSION 8540036 FLUTICASONE PROPIONATE Inactive TUSSIONEX PENNKINETIC ER 10-8 [...] three days PREDNISONE 20 MG ORAL TABLET 055637 PREDNIS ONE Inactive PROAIR HFA 108 (90 BASE) MCG/ACT INHALATION AEROSOL SO LUTION 2 puffs four times a day as needed PROAIR HFA 108 (90 B ASE) MCG/ACT INHALATION AEROSOL SOLUTION ALBUTEROL SULFATE Inactive ZITHROMAX Z-REYNA 250 MG ORAL TABLET 2 today, then 1 daily for 4 d ays ZITHROMAX Z-REYNA 250 MG ORAL TABLET 067130 AZITHROMYCIN Inactive CEFDINIR 300 MG ORAL CAPSULE by mouth twice a day 2010 CEFDINIR 300 MG ORAL CAPSULE 232466 CEFDINIR Inactive CEFDINIR 300 MG ORAL CAPSULE by mouth twice a day 2010 CEFDINIR 300 MG ORAL CAPSULE 142606 CEFDINIR Inactive CEFDINIR 300 MG ORAL CAPSULE by mouth twice a day 2010 CEFDINIR 300 MG ORAL CAPSULE 191288 CEFDINIR Inactive CEFDINIR 300 MG ORAL CAPSULE by mouth twice a day 2011 CEFDINIR 300 MG ORAL CAPSULE 874852 CEFDINIR Inactive ZITHROMAX 250 MG ORAL TABLET 2 po today, then 1 po q days 2-5 20 03/07/07 ZITHROMAX 250 MG ORAL TABLET 283313 AZITHROMYCIN [place] ctive CEFDINIR 300 MG ORAL CAPSULE by mouth twice a day 2011 CEFDINIR 300 MG ORAL CAPSULE 570734 CEFDINIR Inactive PREDNISONE 20 MG ORAL TABLET 2 tabs daily for 3 days, 1 tab daily for 3 days, 1/2 tab daily for 2 days PREDNISONE 20 MG ORAL T ABLET 428324 PREDNISONE Inactive AVELOX 400 MG ORAL TABLET 1 tab by mouth daily AVELOX 400 MG ORAL TABLET 720165 MOXIFLOXACIN HCL Inactive AVELOX 400 MG ORAL TABLET 1 tab by mouth daily AVELOX 400 MG ORAL TABLET 171170 MOXIFLOXACIN HCL Inactive PREDNISONE 20 MG ORAL TABLET Take 3 tabs daily for 3 d ays, 2 tabs daily for 3 days, 1 tab daily for 3 days, 1/2 tab daily for 3 days 11/07 PREDNISONE 20 MG ORAL TABLET 445301 PREDNISONE Inactive LEVAQUIN 500 MG ORAL TABLET take one po QD LEVAQUIN 500 MG ORAL TABLET 476119 LEVOFLOXACIN Inactive AZITHROMYCIN 250 MG ORAL TABLET 2 po qd x 1 day, then 1 po q d x 4 days AZITHROMYCIN 250 MG ORAL TABLET 893403 AZITHROMY GIOVANNI Inactive MEDROL 4 MG ORAL TABLET THERAPY PACK 6 tabs on day 1, 5 tabs on day 2, 4 tabs on day 3, 3 tabs on day 4, 2 tabs on day 5, 1 tab on day 6 2013 MEDROL 4 MG ORAL TABLET THERAPY PACK 123719 METHYLPREDNISOLONE [place] ctive CHERATUSSIN AC 100-10 MG/5ML ORAL SYRUP 5ml po q6hr PRN Cough 20 13/04/14 CHERATUSSIN AC 100-10 MG/5ML ORAL SYRUP 920707 GUAIFENE SIN-CODEINE Inactive TRIAMCINOLONE ACETONIDE 0.1 % EXTERNAL CREAM apply three roger es daily prn rash TRIAMCINOLONE ACETONIDE 0.1 % EXTERNAL CREAM 101 4314 TRIAMCINOLONE ACETONIDE Inactive AZITHROMYCIN 250 MG ORAL TABLET 2 po qd x 1 day, then 1 po q d x 4 days AZITHROMYCIN 250 MG ORAL TABLET 240227 AZITHROMY GIOVANNI Inactive MEDROL 4 MG ORAL TABLET THERAPY PACK 6 pills x 1 day, then 5 pills x 1 day then 4 pills x 1 day, then 3 pills x 1 day, then 2 pills x 1 day, then 1 pill x 1 day, then stop MEDROL 4 MG ORAL TABLET THERAPY PACK 600775 METHYLPREDNISOLONE Inactive AMOXICILLIN 500 MG ORAL CAPSULE 1 tab by mouth 3 times daily x 10 days AMOXICILLIN 500 MG ORAL CAPSULE 616407 AMOXICILL IN Inactive AMOXICILLIN 500 MG ORAL CAPSULE 1 tab by mouth 3 times daily x 10 days AMOXICILLIN 500 MG ORAL CAPSULE 204063 AMOXICILL IN Inactive ZITHROMAX 250 MG ORAL TABLET 2 po today, then 1 po q days 2-5 20 12/08/14 ZITHROMAX 250 MG ORAL TABLET 639379 AZITHROMYCIN [place] ctive AUGMENTIN 875-125 MG ORAL TABLET 1 po BID x 10 days 20 13/01/20 AUGMENTIN 875-125 MG ORAL TABLET 162839 AMOXICILLIN-POT CLAVULANATE Inactive ZITHROMAX Z-REYNA 250 MG ORAL TABLET 2 today, then 1 daily for 4 d ays ZITHROMAX Z-REYNA 250 MG ORAL TABLET 314690 AZITHROMYCIN Inactive ZITHROMAX 250 MG ORAL TABLET 2 po today, then 1 po q days 2-5 20 14/03/21 ZITHROMAX 250 MG ORAL TABLET 880850 AZITHROMYCIN [place] ctive ZITHROMAX Z-REYNA 250 MG ORAL TABLET 2 today, then 1 daily for 4 d ays ZITHROMAX Z-REYNA 250 MG ORAL TABLET 658517 AZITHROMYCIN Inactive CEFDINIR 300 MG ORAL CAPSULE 1 po BID x 10 days 06/21 CEFDINIR 300 MG ORAL CAPSULE 301814 CEFDINIR Inactive ZITHROMAX 250 MG ORAL TABLET 2 po today, then 1 po q days 2-5 20 13/08/10 ZITHROMAX 250 MG ORAL TABLET 967298 AZITHROMYCIN [place] ctive LEVAQUIN 500 MG ORAL TABLET 1 tablet by mouth daily 13/09/24 LEVAQUIN 500 MG ORAL TABLET 183149 LEVOFLOXACIN Inactive SINGULAIR 10 MG ORAL TABLET 1 po qday for allergies 20 14/01/12 SINGULAIR 10 MG ORAL TABLET 309366 MONTELUKAST SODIUM Inactive AMOXICILLIN 500 MG ORAL CAPSULE 2 po BID x 10 days 201 09/29/08 AMOXICILLIN 500 MG ORAL CAPSULE 569339 AMOXICILLIN Inactive PREDNISONE 20 MG ORAL TABLET 2 tabs daily for 3 days, 1 tab daily for 3 days, 1/2 tab daily for 2 days PREDNISONE 20 MG ORAL T ABLET 873174 PREDNISONE Inactive ZITHROMAX Z-REYNA 250 MG ORAL TABLET 2 today, then 1 daily for 4 d ays ZITHROMAX Z-REYNA 250 MG ORAL TABLET 768680 AZITHROMYCIN Inactive PREDNISONE 20 MG ORAL TABLET 2 tabs daily for 3 days, 1 tab daily for 3 days, 1/2 tab daily for 2 days PREDNISONE 20 MG ORAL T ABLET [id number] PREDNISONE Inactive ZITHROMAX 250 MG ORAL TABLET 2 po today, then 1 po q days 2-5 20 14/09/04 ZITHROMAX 250 MG ORAL TABLET 658401 AZITHROMYCIN [place] [facility] AMOXICILLIN 500 MG ORAL CAPSULE 1 cap by mouth three times a day AMOXICILLIN 500 MG ORAL CAPSULE 563553 AMOXICILLIN Inactive TERBINAFINE HCL 250 MG ORAL TABLET 1 qDay for nail fungus TERBINAFINE HCL 250 MG ORAL TABLET 213619 TERBINAFINE HCL Inact nael AUGMENTIN 875-125 MG ORAL TABLET 1 po BID x 10 days 16/03/22 AUGMENTIN 875-125 MG ORAL TABLET 516641 AMOXICILLIN-POT CLAVULANATE Inactive PREDNISONE 20 MG ORAL TABLET 2 po qd x 5 days PREDNISONE 20 MG ORAL TABLET 733579 PREDNISONE Inactive Vital Signs Date Name Value [...] - Chem istry sodium, serum 139 mmol/L [phone]/03/19 potassium, serum 3.6 mmol/L 3.5-5.2 chloride, serum 100 mmol/L 98-107 carbon dioxide, venous blood 30.3 mmol/L 21.0-32 .0 blood glucose 101 mg/dL 65-110 calcium, serum 9.4 mg/dL 8.5-10.1 urea nitrogen, blood 10 mg/dL 7-18 creatinine, serum 0.96 mg/dL 0.60-1.30 Encounters Code Encounter Date Provider Facility [id number] Vst-Est Level III 11:12:16 CDT Br tami W [facility] CPT-59126 Level 3 Est. Patient 11:34:49 PACU RN Perez Mora MD [facility] CPT-76491 Level 4 Est. Patient 09:51:32 PACU RN Carlton rich MD [facility] CPT-16614 Level 3 Est. Patient 10:26:00 PACU RN Elise Are ll [facility] CPT-95667 Level 3 Est. Patient 13:35:41 PACU RN Carlton rich MD [facility] CPT-78179 Level 3 Est. Patient 10:03:52 PACU RN Carlton rich MD [facility] CPT-42810 Level 3 Est. Patient 12:17:50 CDT Hugo Resrtepo MD [facility] CPT-42611 Level 3 Est. Patient 13:42:38 CDT Elise Are [facility] CPT-04352 Level 3 Est. Patient 13:23:51 CDT Diya cobian [facility] CPT-32530 Level 3 Est. Patient 14:22:19 PACU RN Diya cobian [facility] CPT-59607 Level 3 Est. Patient 10:11:46 CDT Carlton rich MD [facility] CPT-38430 Level 3 Est. Patient 17:29:43 CDT Elise Are [facility] CPT-04884 Level 3 Est. Patient 11:58:06 CDT Elise Are [facility] CPT-22784 Level 4 Est. Patient 14:36:51 CDT Carlton rich MD [facility] CPT-15489 Level 3 Est. Patient 18:16:00 PACU RN Blaine HERNANDEZ [facility] CPT-21810 Level 3 Est. Patient 09:45:49 PACU RN Carlton rich MD [facility] CPT-06788 Level 3 Est. Patient 13:19:20 CDT Carlton rich MD [facility] CPT-06494 Level 3 Est. Patient 13:06:43 CDT Ridge tam DO [facility] CPT-50043 Level 3 Est. Patient 10:03:07 CDT Perez Mora MD [facility]-41588 Level 3 Est. Patient 19:50:35 PACU RN Carlton rich MD [facility] CPT-30685 Level 4 Est. Patient 18:05:01 PACU RN Carlton rich MD [facility] CPT-13768 Level 3 Est. Patient 10:45:55 PACU RN Hugo Restrepo MD [facility]-43955 Level 3 Est. Patient 14:12:49 CDT Griffin HERNANDEZ [facility]-90453 Level 3 Est. Patient 17:37:24 CDT Carlton rich MD [facility]-73107 Level 3 Est. Patient 16:51:54 CDT Carlton rich MD [facility]-93279 Level 3 Est. Patient 12:18:11 CDT Hugo Restrepo MD [facility]-62725 Level 3 Est. Patient 11:30:25 CDT Marcy crisostomo MD PhD [facility]-50072 Level 3 Est. Patient 12:00:47 PACU RN Carlton rich MD [facility] CPT-76246 Level 3 Est. Patient 16:31:06 PACU RN Carlton rich MD [facility]-84875 Level 3 Est. Patient 16:23:24 PACU RN Ridge tam DO [facility] CPT-53153 Level 3 Est. Patient 12:34:12 CDT Carlton rich MD [facility]-81851 Level 2 Est. Patient 15:43:33 CDT Robi armstrong MD [facility] CPT-94811 Level 4 Est. Patient 14:04:44 CDT Carlton rich MD [facility] CPT-61626 Level 3 Est. Patient 05:47:59 CDT Ridge tam DO [facility] CPT-82926 Level 3 Est. Patient 13:12:53 PACU RN Carlton rich MD [facility] CPT-98283 Level 3 Est. Patient 14:26:53 CDT Hugo [...] CPT-J1100 Decadron 6mg (Dexamethasone) 14:32:13 CDT 2 CPT-57320 Hip bilat min 2V w AP pelvis 13:16:20 CDT 2 CPT-73290 Pelvis only 13:07:33 CDT CPT-11930 Spec Collection and Handling Fee 11:25:12 C DT CPT-21083 Fluzone Quadrivalent Intramuscular Suspe nsion 0.5 ML 14:31:55 CDT CPT-01381 Abx/Therapy Injection 13:28:47 PACU RN CPT-J2930 Solu Medrol 125 mg (Methyl Prednisolone Sodium Succinate) 12:00:47 PACU RN CPT-66576 Venipuncture Draw Fee 11:33:31 CDT CPT-86140 EKG Trac and Interp 11:21:09 CDT CPT-28962 Chest 2V Frontal and Lat 11:21:09 CDT 12/15 CPT-85205 Venipuncture Draw Fee 08:02:34 CDT CPT-07597 Chest 2V Frontal and Lat 05:47:59 CDT 06/05
--- OUTSIDE RECORDS SUMMARY | 2019-10-08 09:35 | XMS REPORT | Clinical Summary ---
Author Author Caitlin, Juliana Martinez Organization [employer] [facility] Address Unknown Phone Unavailable Allergies, Adverse Reactions, Alerts Allergy Name Reaction Description Start Date Severity Status Pr ovider No Known Allergies Becky AGIULARA Conditions or Problems Problem Name Problem Code [...] po qd x 5 days P REDNISONE [id number] No Longer Active Perez Mora MD Active PROAIR HFA 108 (90 BASE) MCG/ACT INHALATION AEROSOL SO LUTION 2 puffs four times a day as needed ALBUTEROL SULFATE 93162645426 No Long er Active Becky FUENTES Active ASPIRIN 81 MG ORAL TABLET 1 po qd ASPIRIN 88127632666 Active Carlton Hu MD Active PREDNISONE 20 MG ORAL TABLET 1 tab twice daily for 3 d ay, then one daily for three days PREDNISONE 30064458723 No Longer Active Carlton Hu MD Active AUGMENTIN 875-125 MG ORAL TABLET 1 po BID x 10 days 16/03/22 AMOXICILLIN-POT CLAVULANATE 67241791678 No Longer Active Elise Garcia APRN Active TERBINAFINE HCL 250 MG ORAL TABLET 1 qDay for nail fungus 7 TERBINAFINE HCL 73767065935 No Longer Active Carlton Hu MD A ctive TUSSIONEX PENNKINETIC ER 10-8 MG/5ML ORAL SUSPENSION E XTENDED RELEASE 5ml po q12hr PRN Cough HYDROCOD POLST-CHLORPHEN POLST 37314896083 Active Carlton Hu MD Active AMOXICILLIN 500 MG ORAL CAPSULE 1 cap by mouth three times a day AMOXICILLIN 20302955265 No Longer Active Carlton Hu MD Active ELMIRON 100 MG ORAL CAPSULE 2 tablets in the am and 1 tablet at hs PENTOSAN POLYSULFATE SODIUM 14515719479 No Longer Active Robert Hu MD Active MUCINEX D 60-600 MG ORAL TABLET EXTENDED RELEASE 12 HOUR 1 t ab po q am PSEUDOEPHEDRINE-GUAIFENESIN 58856214091 No Longer Act nael Carlton Hu MD Active MUCINEX DM MAXIMUM STRENGTH 60-1200 MG ORAL TABLET EXT ENDED RELEASE 12 HOUR 1 tab po q am DEXTROMETHORPHAN-GUAIFENESIN 67717120292 No Longer Active Carlton Hu MD Active TUSSIONEX PENNKINETIC ER 10-8 MG/5ML ORAL SUSPENSION E XTENDED RELEASE 5ml po q12hr PRN Cough HYDROCOD POLST-CHLORPHEN POLST 5 9820390372 No Longer Active Carlton Hu MD Active POTASSIUM CHLORIDE ER 20 MEQ ORAL TABLET EXTENDED RELE ASE Take 1 by mouth 4 times daily for 7 days POTASSIUM CHLORIDE 04440864645 No Longer Active Carlton Hu MD Active ZITHROMAX 250 MG ORAL TABLET 2 po today, then 1 po q days 2-5 20 14/09/04 AZITHROMYCIN 35907487287 No Longer Active Elise Garcia APRN Active TUSSIONEX PENNKINETIC ER 10-8 MG/5ML ORAL SUSPENSION E XTENDED RELEASE 5 ml twice a day as needed for cough HYDROCOD POLST-CHLORPH EN POLST 59379556741 No Longer Active Elise Garcia APRN Active MONTELUKAST SODIUM 10 MG ORAL TABLET 1 po daily for Allergy MONTELUKAST SODIUM 01126429727 Active Carlton Hu MD Ac tive TUSSIONEX PENNKINETIC ER 10-8 MG/5ML ORAL SUSPENSION E XTENDED RELEASE 5ml po q12hr PRN Cough HYDROCOD POLST-CHLORPHEN POLST 5 5298095251 No Longer Active Hugo Restrepo MD Active GABAPENTIN 100 MG ORAL CAPSULE 1 po BID for fibromyalgia GABAPENTIN 84343186910 Active Carlton Hu MD Active LYRICA 100 MG ORAL CAPSULE Take 1 tab po BID for fibromyalgia 20 11/08/21 PREGABALIN 28166213753 No Longer Active Elise Garcia APRN A ctive PREDNISONE 20 MG ORAL TABLET 2 tabs daily for 3 days, 1 tab daily for 3 days, 1/2 tab daily for 2 days PREDNISONE 90632853715 No Longer Active Diya De Guzman APRN Active TUSSIONEX PENNKINETIC ER 10-8 MG/5ML ORAL SUSPENSION E XTENDED RELEASE 5 mL PO q 12 hrs PRN cough HYDROCOD POLST-CHLORPHEN POLST 065444 97317 No Longer Active Jillina Gege RICEN Active FLUTICASONE PROPIONATE 50 MCG/ACT NASAL SUSPENSION 2 s prays each nostril daily until bottle is empty FLUTICASONE PROPIONATE 591740184 99 No Longer Active Diya De Guzman APRN Active ASMANEX 60 METERED DOSES 220 MCG/INH INHALATION AEROSO L POWDER BREATH ACTIVATED 1 puff bid with rinse after MOMETASONE FUROATE 5558951 4102 No Longer Active Diya De Guzman APRN Active ZITHROMAX Z-REYNA 250 MG ORAL TABLET 2 today, then 1 daily for 4 d ays AZITHROMYCIN 54265591205 No Longer Active Elise Garcia APRN Active TUSSIONEX PENNKINETIC ER 10-8 MG/5ML ORAL SUSPENSION E XTENDED RELEASE 5ml po q12hr PRN Cough HYDROCOD POLST-CHLORPHEN POLST 5 6993281699 No Longer Active Elise Garcia APRN Active PREDNISONE 20 MG ORAL TABLET 2 tabs daily for 3 days, 1 tab daily for 3 days, 1/2 tab daily for 2 days PREDNISONE 41471113677 No Longer Active Diya De Guzman APRN Active AMOXICILLIN 500 MG ORAL CAPSULE 2 po BID x 10 days 201 09/29/08 AMOXICILLIN 22910266078 No Longer Active Diya De Guzman APRN Act nael SINGULAIR 10 MG ORAL TABLET 1 po qday for allergies 20 14/01/12 MONTELUKAST SODIUM 38407861062 No Longer Active Carlton Hu MD Active LEVAQUIN 500 MG ORAL TABLET 1 tablet by mouth daily 20 13/09/24 LEVOFLOXACIN 50874124886 No Longer Active Carlton Hu MD Acti ve FLUTICASONE PROPIONATE 50 MCG/ACT NASAL SUSPENSION 2 s prays each nostril daily for 2 weeks, then 1 spray each nostril daily. FLUTICASONE PROPIONATE 13571039498 Active Elise Garcia APRN Active ZITHROMAX 250 MG ORAL TABLET 2 po today, then 1 po q days 2-5 20 13/08/10 AZITHROMYCIN 22766690492 No Longer Active Elise Garcia APRN Active XANAX 0.5 MG ORAL TABLET one tablet by mouth daily prn anxiety 2015 ALPRAZOLAM 45015225313 Active ALFREDO Holly Active CYMBALTA 30 MG ORAL CAPSULE DELAYED RELEASE PARTICLES 1 cap by mouth daily for depression DULOXETINE HCL 05144941155 Active Carlton beltrán MD Active CEFDINIR 300 MG ORAL CAPSULE 1 po BID x 10 days CEFDINIR 71553391002 No Longer Active Carlton Hu MD Active ZOCOR 40 MG ORAL TABLET 1 tab by mouth daily SI MVASTATIN 50628839323 No Longer Active Carlton Hu MD Active CYCLOBENZAPRINE HCL 10 MG ORAL TABLET 1 tablet by mouth BID prn had pain CYCLOBENZAPRINE HCL 38333414828 No Longer Active Jayden Hu MD Active LEVOFLOXACIN 500 MG ORAL TABLET 1 tab PO daily x 10 days LEVOFLOXACIN 41409955547 No Longer Active Carlton Hu MD Acti ve PREDNISONE 20 MG ORAL TABLET 3 tab PO qd x 2d, 2 tab P O qd x 2d, 1 tab PO qd x 2d, 1/2 tab PO qd x 2d PREDNISONE 65598006981 No Lo nger Active Carlton Hu MD Active FLUTICASONE PROPIONATE 50 MCG/ACT NASAL SUSPENSION 1 t o 2 sprays each nostril daily FLUTICASONE PROPIONATE 05691617151 No Longer Ac tive Blaine HERNANDEZ Active CHERATUSSIN AC 100-10 MG/5ML ORAL SYRUP 1 tsp by mouth every 4 hours as needed for cough GUAIFENESIN-CODEINE 89040671406 No Longe r Active Blaine HERNANDEZ Active PROMETHAZINE-CODEINE 6.25-10 MG/5ML ORAL SYRUP 1 tsp b y mouth every 6 hours if needed for cough PROMETHAZINE-CODEINE 44054618720 No Longer Active Blaine HERNANDEZ Active CHERATUSSIN AC 100-10 MG/5ML ORAL SYRUP 1 tsp by mouth every 4 hours as needed for cough GUAIFENESIN-CODEINE 36800746236 No Longe r Active Blaine HERNANDEZ Active ZITHROMAX Z-REYNA 250 MG ORAL TABLET 2 today, then 1 daily for 4 d ays AZITHROMYCIN 17938730362 No Longer Active Columba Raida Act nael ZITHROMAX 250 MG ORAL TABLET 2 po today, then 1 po q days 2-5 20 14/03/21 AZITHROMYCIN 34861678638 No Longer Active Carlton Hu MD Active ZITHROMAX Z-REYNA 250 MG ORAL TABLET 2 today, then 1 daily for 4 d ays AZITHROMYCIN 83305391245 No Longer Active Columba Raida Act nael AUGMENTIN 875-125 MG ORAL TABLET 1 po BID x 10 days 13/01/20 AMOXICILLIN-POT CLAVULANATE 07198250392 No Longer Active Diya De Guzman APRN Active ZITHROMAX 250 MG ORAL TABLET 2 po today, then 1 po q days 2-5 20 12/08/14 AZITHROMYCIN 10496295399 No Longer Active Carlton Hu MD Active TRAMADOL HCL 50 MG ORAL TABLET 1 po tid with ES Tylenol TRAMADOL HCL 13158013733 Active ALFREDO Holly Active PREMARIN 0.625 MG ORAL TABLET TAKE 1 TAB BY MOUTH DAILY ESTROGENS CONJUGATED 44944953744 No Longer Active Ridge Bess DO A ctive CYMBALTA 30 MG ORAL CAPSULE DELAYED RELEASE PARTICLES 1 cap by mouth daily DULOXETINE HCL 41299493440 No Longer Active Ridge tam DO Active AMOXICILLIN 500 MG ORAL CAPSULE 1 tab by mouth 3 times daily x 10 days AMOXICILLIN 00161320316 No Longer Active Carlton bustamante MD Active AMOXICILLIN 500 MG ORAL CAPSULE 1 tab by mouth 3 times daily x 10 days AMOXICILLIN 20783518436 No Longer Active Carlton bustamante MD Active PROMETHAZINE-CODEINE 6.25-10 MG/5ML ORAL SYRUP 1 tsp b y mouth every 8 hours prn cough PROMETHAZINE-CODEINE 15490266544 No Longer Acti ve Carlton Hu MD Active MEDROL 4 MG ORAL TABLET THERAPY PACK 6 pills x 1 day, then 5 pills x 1 day then 4 pills x 1 day, then 3 pills x 1 day, then 2 pills x 1 day, then 1 pill x 1 day, then stop METHYLPREDNISOLONE 87948180248 No Long er Active Perez Mora MD Active AZITHROMYCIN 250 MG ORAL TABLET 2 po qd x 1 day, then 1 po q d x 4 days AZITHROMYCIN 70021790344 No Longer Active Perez Ambriz MD Active SYMBICORT 160-4.5 MCG/ACT INHALATION AEROSOL 2 puffs bid wit h rinse after BUDESONIDE-FORMOTEROL FUMARATE 65208642926 N o Longer Active Perez Mora MD Active LYRICA 75 MG ORAL CAPSULE TAKE 1 CAPSULE BY MOUTH TWICE DAILY PREGABALIN 98086669625 No Longer Active Carlton Hu MD Acti ve TOPAMAX 25 MG ORAL TABLET 1 qHS x 1 week, then 1 BID x 1 week, then 1 qAM and 2 qHS x 1 week, then 2 BID (migraine prevention) T OPIRAMATE 70182144969 No Longer Active Jerica FUENTES Active TOPAMAX 50 MG ORAL TABLET take 1 tab po BID for migraines. 07/02 TOPIRAMATE 15854239473 No Longer Active Jerica FUENTES Active TOPAMAX 100 MG ORAL TABLET Take 1 tablet po bid TO PIRAMATE 37340149015 Active Carlton Hu MD Active TRIAMCINOLONE ACETONIDE 0.1 % EXTERNAL CREAM apply three roger es daily prn rash TRIAMCINOLONE ACETONIDE 36050477308 No Longer Active Carlton Hu MD Active PAXIL 40 MG ORAL TABLET take 1 tab po qday for depression 0 PAROXETINE HCL 57194189889 Active Perez Mora MD Active CHERATUSSIN AC 100-10 MG/5ML ORAL SYRUP 5ml po q6hr PRN Cough 20 13/04/14 GUAIFENESIN-CODEINE 36989476306 No Longer Active Carlton Hu MD Active MEDROL 4 MG ORAL TABLET THERAPY PACK 6 tabs on day 1, 5 tabs on day 2, 4 tabs on day 3, 3 tabs on day 4, 2 tabs on day 5, 1 tab on day 6 2013 METHYLPREDNISOLONE 28938965938 No Longer Active Perez Mora MD Active AZITHROMYCIN 250 MG ORAL TABLET 2 po qd x 1 day, then 1 po q d x 4 days AZITHROMYCIN 30308495025 No Longer Active Perez Ambriz MD Active PROPRANOLOL HCL 60 MG ORAL TABLET 1 PO Q D PROPRANOLOL HCL 79270292407 No Longer Active Perez Mora MD Activ e CHERATUSSIN AC 100-10 MG/5ML ORAL SYRUP take one tsp po Q 6h ours prn cough GUAIFENESIN-CODEINE 48834425839 No Longer Active Zia Mora MD Active AUGMENTIN 875-125 MG ORAL TABLET 1 tab by mouth twice daily with food AMOXICILLIN-POT CLAVULANATE 39902100716 No Longer Act nael Perez Mora MD Active CHERATUSSIN AC 100-10 MG/5ML ORAL SYRUP 1 tsp by mouth every 4 hours as needed for cough GUAIFENESIN-CODEINE 67260995938 No Longe r Active Hugo Restrepo MD Active ACETAMINOPHEN-CODEINE #3 300-30 MG ORAL TABLET 1 PO Q 4-6 HRS DC N PAIN ACETAMINOPHEN-CODEINE 32132713243 No Longer Active Hugo Restrepo MD Active LEVAQUIN 500 MG ORAL TABLET take one po QD LEVO FLOXACIN 01106184201 No Longer Active Griffin HERNANDEZ Active PREDNISONE 20 MG ORAL TABLET Take 3 tabs daily for 3 d ays, 2 tabs daily for 3 days, 1 tab daily for 3 days, 1/2 tab daily for 3 days 11/07 PREDNISONE 89836308983 No Longer Active Carlton Hu MD Acti ve AVELOX 400 MG ORAL TABLET 1 tab by mouth daily MOXIFLOXACIN HCL 32895187346 No Longer Active Carlton Hu MD Active CHERATUSSIN AC 100-10 MG/5ML ORAL SYRUP 1 tsp by mouth every 4 hours as needed for cough GUAIFENESIN-CODEINE 60154983228 No Longe r Active Hugo Restrepo MD Active AVELOX 400 MG ORAL TABLET 1 tab by mouth daily MOXIFLOXACIN HCL 80686287420 No Longer Active Marcy De La Rosa MD PhD Active TERBINAFINE HCL 250 MG ORAL TABLET 1 qDay T ERBINAFINE HCL 77251602319 No Longer Active Marcy De La Rosa MD PhD Active CHERATUSSIN AC 100-10 MG/5ML ORAL SYRUP 1 tsp by mouth every 4 hours as needed for cough GUAIFENESIN-CODEINE 80063019908 No Longe r Active Marcy De La Rosa MD PhD Active AVELOX 400 MG ORAL TABLET 1 tab by mouth daily MOXIFLOXACIN HCL 43732666883 No Longer Active Marcy De La Rosa MD PhD Active HYDROCODONE-ACETAMINOPHEN 5-325 MG ORAL TABLET 1 po q 6hr PRN co ugh HYDROCODONE-ACETAMINOPHEN 85472406263 No Longer Active Marcy De La Rosa MD PhD Active PREDNISONE 20 MG ORAL TABLET 2 tabs daily for 3 days, 1 tab daily for 3 days, 1/2 tab daily for 2 days PREDNISONE 10174227730 No Longer Active Carlton Hu MD Active CEFDINIR 300 MG ORAL CAPSULE by mouth twice a day 2011 CEFDINIR 62684509636 No Longer Active Carlton Hu MD Acti ve HYDROCHLOROTHIAZIDE 25 MG ORAL TABLET 1 TAB PO DAILY HYDROCHLOROTHIAZIDE 15149545758 Active Carlton Hu MD A ctive ACETAMINOPHEN-CODEINE #3 300-30 MG ORAL TABLET 1 tablet po q 4-6 hrs prn pain ACETAMINOPHEN-CODEINE 87665285237 No Longer Active Ridge Bess DO Active ZITHROMAX 250 MG ORAL TABLET 2 po today, then 1 po q days 2-5 20 03/07/07 AZITHROMYCIN 26433131208 No Longer Active Carlton Hu MD Active CHERATUSSIN AC 100-10 MG/5ML ORAL SYRUP take 1 tsp po q4-6 h ours prn cough GUAIFENESIN-CODEINE 06610188159 No Longer Active Jayden Hu MD Active ACETAMINOPHEN-CODEINE #3 300-30 MG ORAL TABLET 1 PO Q 4-6 HR PRN PAIN ACETAMINOPHEN-CODEINE 94480632752 No Longer Active Arnol Hu MD Active LORTAB 7.5-500 MG/15ML ORAL ELIXIR 7.5 ml po q 4 hour prn cough HYDROCODONE-ACETAMINOPHEN 20723362158 No Longer Active Carlton Hu MD Active PREDNISONE 20 MG ORAL TABLET 1 po bid 3 days, then 1 po q day 3 days PREDNISONE 27537674244 No Longer Active Carlton Hu MD Active CEFDINIR 300 MG ORAL CAPSULE by mouth twice a day 2011 CEFDINIR 12811431215 No Longer Active Carlton Hu MD Acti ve CEFDINIR 300 MG ORAL CAPSULE by mouth twice a day 2010 CEFDINIR 07303573929 No Longer Active Carlton Hu MD Acti ve CEFDINIR 300 MG ORAL CAPSULE by mouth twice a day 2010 CEFDINIR 13292379916 No Longer Active Carlton Hu MD Acti ve TESSALON PERLES 100 MG ORAL CAPSULE 1 tablet by mouth 3 times daily as needed for cough BENZONATATE 76919824313 No Longer Active Carlton Hu MD Active CEFDINIR 300 MG ORAL CAPSULE by mouth twice a day 2010 CEFDINIR 03326172786 No Longer Active Carlton Hu MD Acti ve ZITHROMAX Z-REYNA 250 MG ORAL TABLET 2 today, then 1 daily for 4 d ays AZITHROMYCIN 66181261527 No Longer Active Hugo Restrepo MD Active TESSALON PERLES 100 MG ORAL CAPSULE 1 tablet by mouth 3 times daily as needed for cough TESSALON PERLES 100 MG ORAL CAPSULE 01597 7 BENZONATATE Inactive PREDNISONE 20 MG ORAL TABLET 1 po bid 3 days, then 1 po q day 3 days PREDNISONE 20 MG ORAL TABLET 778753 PREDNISONE [place] ctive LORTAB 7.5-500 MG/15ML ORAL ELIXIR 7.5 [...] cough CHERATUSSIN AC 100-10 MG/5ML ORAL SYRUP 792567 GUAIFENESIN-CODEINE Inactive ACETAMINOPHEN-CODEINE #3 300-30 MG ORAL TABLET 1 tablet po q 4-6 hrs prn pain ACETAMINOPHEN-CODEINE #3 300-30 MG ORAL TABLET ACETAMINOPHEN-CODEINE Inactive HYDROCODONE-ACETAMINOPHEN 5-325 MG ORAL TABLET 1 po q 6hr PRN co ugh HYDROCODONE-ACETAMINOPHEN 5-325 MG ORAL TABLET 111642 HYDROCODONE-ACETAMINOPHEN Inactive AVELOX 400 MG ORAL TABLET 1 tab by mouth daily AVELOX 400 MG ORAL TABLET 848514 MOXIFLOXACIN HCL Inactive CHERATUSSIN AC 100-10 MG/5ML ORAL SYRUP 1 tsp by mouth every 4 hours as needed for cough CHERATUSSIN AC 100-10 MG/5ML ORAL SYRUP 9 92386 GUAIFENESIN-CODEINE Inactive TERBINAFINE HCL 250 MG ORAL TABLET 1 qDay 07/08 TERBINAFINE HCL 250 MG ORAL TABLET 685872 TERBINAFINE HCL Inactive CHERATUSSIN AC 100-10 MG/5ML ORAL SYRUP 1 tsp by mouth every 4 hours as needed for cough CHERATUSSIN AC 100-10 MG/5ML ORAL SYRUP 9 21020 GUAIFENESIN-CODEINE Inactive ACETAMINOPHEN-CODEINE #3 300-30 MG ORAL TABLET 1 PO Q 4-6 HRS DC N PAIN ACETAMINOPHEN-CODEINE #3 300-30 MG ORAL TABLET ACETAMINOPHEN-CODEINE Inactive CHERATUSSIN AC 100-10 MG/5ML ORAL SYRUP 1 tsp by mouth every 4 hours as needed for cough CHERATUSSIN AC 100-10 MG/5ML ORAL SYRUP 9 55644 GUAIFENESIN-CODEINE Inactive AUGMENTIN 875-125 MG ORAL TABLET 1 tab by mouth twice daily with food AUGMENTIN 875-125 MG ORAL TABLET 739254 AMOXICIL MADELINE-POT CLAVULANATE Inactive CHERATUSSIN AC 100-10 MG/5ML ORAL SYRUP take one tsp po Q 6h ours prn cough CHERATUSSIN AC 100-10 MG/5ML ORAL SYRUP 950641 GUAIFENESIN-CODEINE Inactive PROPRANOLOL HCL 60 MG ORAL TABLET 1 PO Q D PROPRANOLOL HCL 60 MG ORAL TABLET 489877 PROPRANOLOL HCL Inactive TOPAMAX 50 MG ORAL TABLET take 1 tab po BID for migraines. 07/02 TOPAMAX 50 MG ORAL TABLET 176934 TOPIRAMATE Inacti ve TOPAMAX 25 MG ORAL TABLET 1 qHS x 1 week, then 1 BID x 1 week, then 1 qAM and 2 qHS x 1 week, then 2 BID (migraine prevention) TOPAMAX 25 MG ORAL TABLET 785199 TOPIRAMATE Inactive LYRICA 75 MG ORAL CAPSULE TAKE 1 CAPSULE BY MOUTH TWICE DAILY LYRICA 75 MG ORAL CAPSULE PREGABALIN Inactive SYMBICORT 160-4.5 MCG/ACT INHALATION AEROSOL 2 puffs bid wit h rinse after SYMBICORT 160-4.5 MCG/ACT INHALATION AEROSOL BUDESONIDE- FORMOTEROL FUMARATE Inactive PROMETHAZINE-CODEINE 6.25-10 MG/5ML ORAL SYRUP 1 tsp b y mouth every 8 hours prn cough PROMETHAZINE-CODEINE 6.25-10 MG/ 5ML ORAL SYRUP 223097 PROMETHAZINE-CODEINE Inactive CYMBALTA 30 MG ORAL CAPSULE DELAYED RELEASE PARTICLES 1 cap by mouth daily CYMBALTA 30 MG ORAL CAPSULE DELAYED RELE ASE PARTICLES 310538 DULOXETINE HCL Inactive PREMARIN 0.625 MG ORAL TABLET TAKE 1 TAB BY MOUTH DAILY PREMARIN 0.625 MG ORAL TABLET ESTROGENS CONJUGATED Inactive CHERATUSSIN AC 100-10 MG/5ML ORAL SYRUP 1 tsp by mouth every 4 hours as needed for cough CHERATUSSIN AC 100-10 MG/5ML ORAL SYRUP 9 80528 GUAIFENESIN-CODEINE Inactive PROMETHAZINE-CODEINE 6.25-10 MG/5ML ORAL SYRUP 1 tsp b y mouth every 6 hours if needed for cough PROMETHAZINE-CODEINE 6.25-10 MG/5ML ORAL SYRUP 094193 PROMETHAZINE-CODEINE Inactive CHERATUSSIN AC 100-10 MG/5ML ORAL SYRUP 1 tsp by mouth every 4 hours as needed for cough CHERATUSSIN AC 100-10 MG/5ML ORAL SYRUP 9 09452 GUAIFENESIN-CODEINE Inactive FLUTICASONE PROPIONATE 50 MCG/ACT NASAL SUSPENSION 1 t o 2 sprays each nostril daily FLUTICASONE PROPIONATE 50 MCG/AC T NASAL SUSPENSION 2633815 FLUTICASONE PROPIONATE Inactive PREDNISONE 20 MG ORAL TABLET 3 tab PO qd x 2d, 2 tab P O qd x 2d, 1 tab PO qd x 2d, 1/2 tab PO qd x 2d PREDNISONE 20 MG ORAL TAB LET 371638 PREDNISONE Inactive LEVOFLOXACIN 500 MG ORAL TABLET 1 tab PO daily x 10 days LEVOFLOXACIN 500 MG ORAL TABLET 356346 LEVOFLOXACIN Inactive CYCLOBENZAPRINE HCL 10 MG ORAL TABLET 1 tablet by mouth BID prn had pain CYCLOBENZAPRINE HCL 10 MG ORAL TABLET 766833 CYCLOBENZAPRINE HCL Inactive ZOCOR 40 MG ORAL TABLET 1 tab by mouth daily 4 ZOCOR 40 MG ORAL TABLET 722812 SIMVASTATIN Inactive TUSSIONEX PENNKINETIC ER 10-8 MG/5ML [...] FLUTICASONE PROPIO EFE 50 MCG/ACT NASAL SUSPENSION 2188228 FLUTICASONE PROPIONATE Inactive TUSSIONEX PENNKINETIC ER 10-8 [...] three days PREDNISONE 20 MG ORAL TABLET 419115 PREDNIS ONE Inactive PROAIR HFA 108 (90 BASE) MCG/ACT INHALATION AEROSOL SO LUTION 2 puffs four times a day as needed PROAIR HFA 108 (90 B ASE) MCG/ACT INHALATION AEROSOL SOLUTION ALBUTEROL SULFATE Inactive ZITHROMAX Z-REYNA 250 MG ORAL TABLET 2 today, then 1 daily for 4 d ays ZITHROMAX Z-REYNA 250 MG ORAL TABLET 138226 AZITHROMYCIN Inactive CEFDINIR 300 MG ORAL CAPSULE by mouth twice a day 2010 CEFDINIR 300 MG ORAL CAPSULE 556370 CEFDINIR Inactive CEFDINIR 300 MG ORAL CAPSULE [...] 2-5 03/07/07 ZITHROMAX 250 MG ORAL TABLET 362159 AZITHROMYCIN [place] ctive CEFDINIR 300 MG ORAL CAPSULE by mouth twice a day 2011 CEFDINIR 300 MG ORAL CAPSULE 20020704 CEFDINIR Inactive PREDNISONE 20 MG ORAL TABLET 2 tabs daily for 3 days, 1 tab daily for 3 days, 1/2 tab daily for 2 days PREDNISONE 20 MG ORAL T ABLET 799799 PREDNISONE Inactive AVELOX 400 MG ORAL TABLET 1 tab by mouth daily AVELOX 400 MG ORAL TABLET 489412 MOXIFLOXACIN HCL Inactive AVELOX 400 MG ORAL TABLET 1 tab by mouth daily AVELOX 400 MG ORAL TABLET 565034 MOXIFLOXACIN HCL Inactive PREDNISONE 20 MG ORAL TABLET Take 3 tabs daily for 3 d ays, 2 tabs daily for 3 days, 1 tab daily for 3 days, 1/2 tab daily for 3 days 11/07 PREDNISONE 20 MG ORAL TABLET 440485 PREDNISONE Inactive LEVAQUIN 500 MG ORAL TABLET take one po QD LEVAQUIN 500 MG ORAL TABLET 505349 LEVOFLOXACIN Inactive AZITHROMYCIN 250 MG ORAL TABLET 2 po qd x 1 day, then 1 po q d x 4 days AZITHROMYCIN 250 MG ORAL TABLET 199545 AZITHROMY GIOVANNI Inactive MEDROL 4 MG ORAL TABLET THERAPY PACK 6 tabs on day 1, 5 tabs on day 2, 4 tabs on day 3, 3 tabs on day 4, 2 tabs on day 5, 1 tab on day 6 2013 MEDROL 4 MG ORAL TABLET THERAPY PACK 082638 METHYLPREDNISOLONE [place] ctive CHERATUSSIN AC 100-10 MG/5ML ORAL SYRUP 5ml po q6hr PRN Cough 20 13/04/14 CHERATUSSIN AC 100-10 MG/5ML ORAL SYRUP 310793 GUAIFENE SIN-CODEINE Inactive TRIAMCINOLONE ACETONIDE 0.1 % EXTERNAL CREAM apply three roger es daily prn rash TRIAMCINOLONE ACETONIDE 0.1 % EXTERNAL CREAM 101 4314 TRIAMCINOLONE ACETONIDE Inactive AZITHROMYCIN 250 MG ORAL TABLET 2 po qd x 1 day, then 1 po q d x 4 days AZITHROMYCIN 250 MG ORAL TABLET 593516 AZITHROMY GIOVANNI Inactive MEDROL 4 MG ORAL TABLET THERAPY PACK 6 pills x 1 day, then 5 pills x 1 day then 4 pills x 1 day, then 3 pills x 1 day, then 2 pills x 1 day, then 1 pill x 1 day, then stop MEDROL 4 MG ORAL TABLET THERAPY PACK 911229 METHYLPREDNISOLONE Inactive AMOXICILLIN 500 MG ORAL CAPSULE 1 tab by mouth 3 times daily x 10 days AMOXICILLIN 500 MG ORAL CAPSULE 827117 AMOXICILL IN Inactive AMOXICILLIN 500 MG ORAL CAPSULE 1 tab by mouth 3 times daily x 10 days AMOXICILLIN 500 MG ORAL CAPSULE 408271 AMOXICILL IN Inactive ZITHROMAX 250 MG ORAL TABLET 2 po today, then 1 po q days 2-5 20 12/08/14 ZITHROMAX 250 MG ORAL TABLET 633017 AZITHROMYCIN [place] ctive AUGMENTIN 875-125 MG ORAL TABLET 1 po BID x 10 days 20 13/01/20 AUGMENTIN 875-125 MG ORAL TABLET 777636 AMOXICILLIN-POT CLAVULANATE Inactive ZITHROMAX Z-REYNA 250 MG ORAL TABLET 2 today, then 1 daily for 4 d ays ZITHROMAX Z-REYNA 250 MG ORAL TABLET 059707 AZITHROMYCIN Inactive ZITHROMAX 250 MG ORAL TABLET 2 po today, then 1 po q days 2-5 20 14/03/21 ZITHROMAX 250 MG ORAL TABLET 296015 AZITHROMYCIN [place] ctive ZITHROMAX Z-REYNA 250 MG ORAL TABLET 2 today, then 1 daily for 4 d ays ZITHROMAX Z-REYNA 250 MG ORAL TABLET 466156 AZITHROMYCIN Inactive CEFDINIR 300 MG ORAL CAPSULE 1 po BID x 10 days 06/21 CEFDINIR 300 MG ORAL CAPSULE 20020704 CEFDINIR Inactive ZITHROMAX 250 MG ORAL TABLET 2 po today, then 1 po q days 2-5 20 13/08/10 ZITHROMAX 250 MG ORAL TABLET 726428 AZITHROMYCIN [place] ctive LEVAQUIN 500 MG ORAL TABLET 1 tablet by mouth daily 13/09/24 LEVAQUIN 500 MG ORAL TABLET 19971102 LEVOFLOXACIN Inactive SINGULAIR 10 MG ORAL TABLET 1 po qday for allergies 20 14/01/12 SINGULAIR 10 MG ORAL TABLET 20010504 MONTELUKAST SODIUM Inactive AMOXICILLIN 500 MG ORAL CAPSULE 2 po BID x 10 days 201 09/29/08 AMOXICILLIN 500 MG ORAL CAPSULE 722315 AMOXICILLIN Inactive PREDNISONE 20 MG ORAL TABLET 2 tabs daily for 3 days, 1 tab daily for 3 days, 1/2 tab daily for 2 days PREDNISONE 20 MG ORAL T ABLET 248680 PREDNISONE Inactive ZITHROMAX Z-REYNA 250 MG ORAL TABLET 2 today, then 1 daily for 4 d ays ZITHROMAX Z-REYNA 250 MG ORAL TABLET 116985 AZITHROMYCIN Inactive PREDNISONE 20 MG ORAL TABLET 2 tabs daily for 3 days, 1 tab daily for 3 days, 1/2 tab daily for 2 days PREDNISONE 20 MG ORAL T ABLET 744868 PREDNISONE Inactive ZITHROMAX 250 MG ORAL TABLET 2 po today, then 1 po q days 2-5 20 14/09/04 ZITHROMAX 250 MG ORAL TABLET 429981 AZITHROMYCIN Greer ctive AMOXICILLIN 500 MG ORAL CAPSULE 1 cap by mouth three times a day AMOXICILLIN 500 MG ORAL CAPSULE 808481 AMOXICILLIN Inactive TERBINAFINE HCL 250 MG ORAL TABLET 1 qDay for nail fungus 7 TERBINAFINE HCL 250 MG ORAL TABLET 105498 TERBINAFINE HCL Inact nael AUGMENTIN 875-125 MG ORAL TABLET 1 po BID x 10 days 16/03/22 AUGMENTIN 875-125 MG ORAL TABLET 421403 AMOXICILLIN-POT CLAVULANATE Inactive PREDNISONE 20 MG ORAL TABLET 2 po qd x 5 days PREDNISONE 20 MG ORAL TABLET 712176 PREDNISONE Inactive Vital Signs Date Name Value [...] - Chem istry sodium, serum 139 mmol/L 856-791 1236/03/19 potassium, serum 3.6 mmol/L 3.5-5.2 chloride, serum 100 mmol/L 98-107 carbon dioxide, venous blood 30.3 mmol/L 21.0-32 .0 blood glucose 101 mg/dL 65-110 calcium, serum 9.4 mg/dL 8.5-10.1 urea nitrogen, blood 10 mg/dL 7-18 creatinine, serum 0.96 mg/dL 0.60-1.30 Encounters Code Encounter Date Provider Facility CPT-56020 Level 3 Est. Patient 11:34:49 BRAID MAKER Perez Mora MD [facility] CPT-18712 Level 4 Est. Patient 09:51:32 BRAID MAKER Carlton rich MD [facility] CPT-29674 Level 3 Est. Patient 10:26:00 BRAID MAKER lEise stephenson [facility] [place] CPT-58597 Level 3 Est. Patient 13:35:41 BRAID MAKER Carlton rich MD [facility] CPT-78210 Level 3 Est. Patient 10:03:52 BRAID MAKER Carlton rich MD [facility] CPT-80476 Level 3 Est. Patient 12:17:50 CDT Hugo Restrepo MD [facility] CPT-70191 Level 3 Est. Patient 13:42:38 CDT Elise stephenson [facility] [place] CPT-49701 Level 3 Est. Patient 13:23:51 CDT Diya cobian [facility] [place] CPT-87276 Level 3 Est. Patient 14:22:19 BRAID MAKER Diya cobian [facility] [place] CPT-33921 Level 3 Est. Patient 10:11:46 CDT Carlton rich MD [facility] CPT-55309 Level 3 Est. Patient 17:29:43 CDT Elise Are ll [facility] [place] CPT-72584 Level 3 Est. Patient 11:58:06 CDT Elise Are ll [facility] [place] CPT-59968 Level 4 Est. Patient 14:36:51 CDT Carlton rich MD [facility] CPT-12418 Level 3 Est. Patient 18:16:00 BRAID MAKER [facility] CPT-67432 Level 3 Est. Patient 09:45:49 BRAID MAKER Carlton rich MD [facility] CPT-65732 Level 3 Est. Patient 13:19:20 CDT Carlton rich MD [facility] CPT-44303 Level 3 Est. Patient 13:06:43 CDT Ridge tam DO [facility] CPT-03067 Level 3 Est. Patient 10:03:07 CDT Perez Mora MD [facility] CPT-80786 Level 3 Est. Patient 19:50:35 BRAID MAKER Carlton rich MD [facility] CPT-56870 Level 4 Est. Patient 18:05:01 BRAID MAKER Carlton rich MD [facility] CPT-47037 Level 3 Est. Patient 10:45:55 BRAID MAKER Hugo Restrepo MD [facility] CPT-65356 Level 3 Est. Patient 14:12:[address] [facility] CPT-60554 Level 3 Est. Patient 17:37:24 CDT Carlton rich MD [facility] CPT-98685 Level 3 Est. Patient 16:51:54 CDT Carlton rich MD [facility] CPT-10180 Level 3 Est. Patient 12:18:11 CDT Hugo Restrepo MD [facility] CPT-71023 Level 3 Est. Patient 11:30:25 CDT Marcy crisostomo MD PhD [facility] CPT-88395 Level 3 Est. Patient 12:00:47 BRAID MAKER Carlton rich MD [facility] CPT-05100 Level 3 Est. Patient 16:31:06 BRAID MAKER Carlton rich MD [facility] CPT-56489 Level 3 Est. Patient 16:23:24 BRAID MAKER Ridge tam [facility] CPT-77231 Level 3 Est. Patient 12:34:12 CDT Carlton rich MD [facility] CPT-48743 Level 2 Est. Patient 15:43:33 CDT Robi armstrong MD [facility] CPT-28015 Level 4 Est. Patient 14:04:44 CDT Carlton rich MD [facility] CPT-81887 Level 3 Est. Patient 05:47:[address] [facility] CPT-34169 Level 3 Est. Patient 13:12:53 BRAID MAKER Carlton rich MD [facility] CPT-24132 Level 3 Est. Patient 14:26:53 CDT Hugo [...] CPT-J1100 Decadron 6mg (Dexamethasone) 14:32:13 CDT 2 CPT-56753 Hip bilat min 2V w AP pelvis 13:16:20 CDT 2 CPT-50291 Pelvis only 13:07:33 CDT CPT-74023 Spec Collection and Handling Fee 11:25:12 C DT CPT-05661 Fluzone Quadrivalent Intramuscular Suspe nsion 0.5 ML 14:31:55 CDT CPT-01032 Abx/Therapy Injection 13:28:47 BRAID MAKER CPT-J2930 Solu Medrol 125 mg (Methyl Prednisolone Sodium Succinate) 12:00:47 BRAID MAKER CPT-55138 Venipuncture Draw Fee 11:33:31 CDT CPT-42513 EKG Trac and Interp 11:21:09 CDT CPT-05183 Chest 2V Frontal and Lat 11:21:09 CDT 12/15 CPT-09745 Venipuncture Draw Fee 08:02:34 CDT CPT-64348 Chest 2V Frontal and Lat 05:47:59 CDT 06/05
--- OUTSIDE RECORDS SUMMARY | 2019-10-08 09:36 | XMS REPORT | Clinical Summary ---
Author Author Caitlin, Juliana Martinez Organization [facility] Address Unknown Phone Unavailable Allergies, [...] MG ORAL TABLET 1 po qd ASPIRIN 38243330643 Active Carlton Hu MD Active PREDNISONE 20 MG ORAL TABLET 1 tab twice daily for 3 d ay, then one daily for three days PREDNISONE 65313485933 No Longer Active Carlton Hu MD Active AUGMENTIN 875-125 MG ORAL TABLET 1 po BID x 10 days 20 16/03/22 AMOXICILLIN-POT CLAVULANATE 15538721813 No Longer Active Elise Whitmore APRN Active TERBINAFINE HCL 250 MG ORAL TABLET 1 qDay for nail fungus 7 TERBINAFINE HCL 98772832638 No Longer Active Carlton Hu MD A ctive TUSSIONEX PENNKINETIC ER 10-8 MG/5ML ORAL SUSPENSION E XTENDED RELEASE 5ml po q12hr PRN Cough HYDROCOD POLST-CHLORPHEN POLST 12642255619 Active Carlton Hu MD Active AMOXICILLIN 500 MG ORAL CAPSULE 1 cap by mouth three times a day AMOXICILLIN 79898609683 No Longer Active Carlton Hu MD Active ELMIRON 100 MG ORAL CAPSULE 2 tablets in the am and 1 tablet at hs PENTOSAN POLYSULFATE SODIUM 43385413998 No Longer Active Robert Hu MD Active MUCINEX D 60-600 MG ORAL TABLET EXTENDED RELEASE 12 HOUR 1 t ab po q am PSEUDOEPHEDRINE-GUAIFENESIN 01863325299 No Longer Act nael Carlton Hu MD Active MUCINEX DM MAXIMUM STRENGTH 60-1200 MG ORAL TABLET EXT ENDED RELEASE 12 HOUR 1 tab po q am DEXTROMETHORPHAN-GUAIFENESIN 25077574661 No Longer Active Carlton Hu MD Active TUSSIONEX PENNKINETIC ER 10-8 MG/5ML ORAL SUSPENSION E XTENDED RELEASE 5ml po q12hr PRN Cough HYDROCOD POLST-CHLORPHEN POLST 5 6136003199 No Longer Active Carlton Hu MD Active POTASSIUM CHLORIDE ER 20 MEQ ORAL TABLET EXTENDED RELE ASE Take 1 by mouth 4 times daily for 7 days POTASSIUM CHLORIDE 98909830441 No Longer Active Carlton Hu MD Active ZITHROMAX 250 MG ORAL TABLET 2 po today, then 1 po q days 2-5 20 14/09/04 AZITHROMYCIN 61530938486 No Longer Active Elise Whitmore APRN Active TUSSIONEX PENNKINETIC ER 10-8 MG/5ML ORAL SUSPENSION E XTENDED RELEASE 5 ml twice a day as needed for cough HYDROCOD POLST-CHLORPH EN POLST 27661069356 No Longer Active Elise Whitmore APRN Active MONTELUKAST SODIUM 10 MG ORAL TABLET 1 po daily for Allergy MONTELUKAST SODIUM 19192473325 Active Carlton Hu MD Ac tive TUSSIONEX PENNKINETIC ER 10-8 MG/5ML ORAL SUSPENSION E XTENDED RELEASE 5ml po q12hr PRN Cough HYDROCOD POLST-CHLORPHEN POLST 5 9410126001 No Longer Active Hugo Restrepo MD Active GABAPENTIN 100 MG ORAL CAPSULE 1 po BID for fibromyalgia GABAPENTIN 70461355335 Active Carlton Hu MD Active LYRICA 100 MG ORAL CAPSULE Take 1 tab po BID for fibromyalgia 20 11/08/21 PREGABALIN 66404122431 No Longer Active Elise Whitmore APRN Active PROAIR HFA 108 (90 Base) MCG/ACT INHALATION AEROSOL SO LUTION 2 puffs four times a day as needed ALBUTEROL SULFATE 81598039323 Active Lyndsay Whitmore APRN Active PREDNISONE 20 MG ORAL TABLET 2 tabs daily for 3 days, 1 tab daily for 3 days, 1/2 tab daily for 2 days PREDNISONE 07393186604 No Longer Active Jillina Gege KHAN Active TUSSIONEX PENNKINETIC ER 10-8 MG/5ML ORAL SUSPENSION E XTENDED RELEASE 5 mL PO q 12 hrs PRN cough HYDROCOD POLST-CHLORPHEN POLST 927491 36266 No Longer Active Jillina Frazell 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 FLUTICASONE PROPIONATE 50 MCG/ACT NASAL SUSPENSION 2 s prays each nostril daily until bottle is empty FLUTICASONE PROPIONATE 475948545 99 No Longer Active Jillina Frazell [employer]PORT [employer]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 ASMANEX 60 METERED DOSES 220 MCG/INH INHALATION AEROSO L POWDER BREATH ACTIVATED 1 puff bid with rinse after MOMETASONE FUROATE 6349975 4102 No Longer Active Astridina Gege 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 ZITHROMAX Z-REYNA 250 MG ORAL TABLET 2 today, then 1 daily for 4 d ays AZITHROMYCIN 17222897983 No Longer Active Elise Whitmore APRN Active TUSSIONEX PENNKINETIC ER 10-8 MG/5ML ORAL SUSPENSION E XTENDED RELEASE 5ml po q12hr PRN Cough HYDROCOD POLST-CHLORPHEN POLST 5 5746405707 No Longer Active Elise Whitmore APRN Active PREDNISONE 20 MG ORAL TABLET 2 tabs daily for 3 days, 1 tab daily for 3 days, 1/2 tab daily for 2 days PREDNISONE 30207509260 No Longer Active Diya Guerrerol 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 AMOXICILLIN 500 MG ORAL CAPSULE 2 po BID x 10 days 201 09/29/08 AMOXICILLIN 92908988147 No Longer Active Diya De Guzman APRN Act nael SINGULAIR 10 MG ORAL TABLET 1 po qday for allergies 20 14/01/12 MONTELUKAST SODIUM 26972011899 No Longer Active Carlton Hu MD Active LEVAQUIN 500 MG ORAL TABLET 1 tablet by mouth daily 20 13/09/24 LEVOFLOXACIN 21493822688 No Longer Active Carlton Hu MD Acti ve FLUTICASONE PROPIONATE 50 MCG/ACT NASAL SUSPENSION 2 s prays each nostril daily for 2 weeks, then 1 spray each nostril daily. FLUTICASONE PROPIONATE 85737281881 Active Elise Whitmore APRN Active ZITHROMAX 250 MG ORAL TABLET 2 po today, then 1 po q days 2-5 20 13/08/10 AZITHROMYCIN 95697478875 No Longer Active Elise Whitmore APRN Active XANAX 0.5 MG ORAL TABLET one tablet by mouth daily prn anxiety 2015 ALPRAZOLAM 63950201816 Active Carlton Hu MD Active CYMBALTA 30 MG ORAL CAPSULE DELAYED RELEASE PARTICLES 1 cap by mouth daily for depression DULOXETINE HCL 87119195884 Active Carlton beltrán MD Active CEFDINIR 300 MG ORAL CAPSULE 1 po BID x 10 days CEFDINIR 23913469844 No Longer Active Carlton Hu MD Active ZOCOR 40 MG ORAL TABLET 1 tab by mouth daily SI MVASTATIN 02894238337 No Longer Active Carlton Hu MD Active CYCLOBENZAPRINE HCL 10 MG ORAL TABLET 1 tablet by mouth BID prn had pain CYCLOBENZAPRINE HCL 70608832310 No Longer Active Jayden Hu MD Active LEVOFLOXACIN 500 MG ORAL TABLET 1 tab PO daily x 10 days LEVOFLOXACIN 71985440358 No Longer Active Carlton Hu MD Acti ve PREDNISONE 20 MG ORAL TABLET 3 tab PO qd x 2d, 2 tab P O qd x 2d, 1 tab PO qd x 2d, 1/2 tab PO qd x 2d PREDNISONE 63707597215 No Lo nger Active Carlton Hu MD Active FLUTICASONE PROPIONATE 50 MCG/ACT NASAL SUSPENSION 1 t o 2 sprays each nostril daily FLUTICASONE PROPIONATE 54713763978 No Longer Ac tive Blaine HERNANDEZ Active CHERATUSSIN AC 100-10 MG/5ML ORAL SYRUP 1 tsp by mouth every 4 hours as needed for cough GUAIFENESIN-CODEINE 41574313386 No Longe r Active Blaine HERNANDEZ Active PROMETHAZINE-CODEINE 6.25-10 MG/5ML ORAL SYRUP 1 tsp b y mouth every 6 hours if needed for cough PROMETHAZINE-CODEINE 75414897084 No Longer Active Blaine HERNANDEZ Active CHERATUSSIN AC 100-10 MG/5ML ORAL SYRUP 1 tsp by mouth every 4 hours as needed for cough GUAIFENESIN-CODEINE 29295484851 No Longe r Active Blaine HERNANDEZ Active ZITHROMAX Z-REYNA 250 MG ORAL TABLET 2 today, then 1 daily for 4 d ays AZITHROMYCIN 15161031142 No Longer Active Columba Raida Act nael ZITHROMAX 250 MG ORAL TABLET 2 po today, then 1 po q days 2-5 20 14/03/21 AZITHROMYCIN 31797721525 No Longer Active Carlton Hu MD Active ZITHROMAX Z-REYNA 250 MG ORAL TABLET 2 today, then 1 daily for 4 d ays AZITHROMYCIN 01062220880 No Longer Active Columba Raida Act nael AUGMENTIN 875-125 MG ORAL TABLET 1 po BID x 10 days 13/01/20 AMOXICILLIN-POT CLAVULANATE 95420591125 No Longer Active Diya De Guzman APRN Active ZITHROMAX 250 MG ORAL TABLET 2 po today, then 1 po q days 2-5 20 12/08/14 AZITHROMYCIN 17618107476 No Longer Active Carlton Hu MD Active TRAMADOL HCL 50 MG ORAL TABLET 1 po tid with ES Tylenol TRAMADOL HCL 50411117691 Active Carlton Hu MD Active PREMARIN 0.625 MG ORAL TABLET TAKE 1 TAB BY MOUTH DAILY ESTROGENS CONJUGATED 68878805253 No Longer Active Ridge Bess DO A ctive CYMBALTA 30 MG ORAL CAPSULE DELAYED RELEASE PARTICLES 1 cap by mouth daily DULOXETINE HCL 70592688350 No Longer Active Ridge tam DO Active AMOXICILLIN 500 MG ORAL CAPSULE 1 tab by mouth 3 times daily x 10 days AMOXICILLIN 56382073175 No Longer Active Carlton bustamante MD Active AMOXICILLIN 500 MG ORAL CAPSULE 1 tab by mouth 3 times daily x 10 days AMOXICILLIN 13306015166 No Longer Active Carlton bustamante MD Active PROMETHAZINE-CODEINE 6.25-10 MG/5ML ORAL SYRUP 1 tsp b y mouth every 8 hours prn cough PROMETHAZINE-CODEINE 08592946464 No Longer Acti ve Carlton Hu MD Active MEDROL 4 MG ORAL TABLET THERAPY PACK 6 pills x 1 day, then 5 pills x 1 day then 4 pills x 1 day, then 3 pills x 1 day, then 2 pills x 1 day, then 1 pill x 1 day, then stop METHYLPREDNISOLONE 95493360253 No Long er Active Perez Mora MD Active AZITHROMYCIN 250 MG ORAL TABLET 2 po qd x 1 day, then 1 po q d x 4 days AZITHROMYCIN 62331486266 No Longer Active Perez Ambriz MD Active SYMBICORT 160-4.5 MCG/ACT INHALATION AEROSOL 2 puffs bid wit h rinse after BUDESONIDE-FORMOTEROL FUMARATE 20271541304 N o Longer Active Perez Mora MD Active LYRICA 75 MG ORAL CAPSULE TAKE 1 CAPSULE BY MOUTH TWICE DAILY PREGABALIN 18057151987 No Longer Active Carlton Hu MD Acti ve TOPAMAX 25 MG ORAL TABLET 1 qHS x 1 week, then 1 BID x 1 week, then 1 qAM and 2 qHS x 1 week, then 2 BID (migraine prevention) T OPIRAMATE 55614279760 No Longer Active Jerica FUENTES Active TOPAMAX 50 MG ORAL TABLET take 1 tab po BID for migraines. 07/02 TOPIRAMATE 09761848987 No Longer Active Jericacatrachita FUENTES Active TOPAMAX 100 MG ORAL TABLET Take 1 tablet po bid TO PIRAMATE 20872835633 Active Carlton Hu MD Active TRIAMCINOLONE ACETONIDE 0.1 % EXTERNAL CREAM apply three roger es daily prn rash TRIAMCINOLONE ACETONIDE 42662674409 No Longer Active Carlton Hu MD Active PAXIL 40 MG ORAL TABLET take 1 tab po qday for depression 0 PAROXETINE HCL 93661667304 Active Carlton Hu MD Active CHERATUSSIN AC 100-10 MG/5ML ORAL SYRUP 5ml po q6hr PRN Cough 20 13/04/14 GUAIFENESIN-CODEINE 41330309605 No Longer Active Carlton Hu MD Active MEDROL 4 MG ORAL TABLET THERAPY PACK 6 tabs on day 1, 5 tabs on day 2, 4 tabs on day 3, 3 tabs on day 4, 2 tabs on day 5, 1 tab on day 6 2013 METHYLPREDNISOLONE 42992959086 No Longer Active Perez Mora MD Active AZITHROMYCIN 250 MG ORAL TABLET 2 po qd x 1 day, then 1 po q d x 4 days AZITHROMYCIN 87067837832 No Longer Active Perez Ambriz MD Active PROPRANOLOL HCL 60 MG ORAL TABLET 1 PO Q D PROPRANOLOL HCL 77462193655 No Longer Active Perez Mora MD Activ e CHERATUSSIN AC 100-10 MG/5ML ORAL SYRUP take one tsp po Q 6h ours prn cough GUAIFENESIN-CODEINE 31850251254 No Longer Active Zia Mora MD Active AUGMENTIN 875-125 MG ORAL TABLET 1 tab by mouth twice daily with food AMOXICILLIN-POT CLAVULANATE 79596922550 No Longer Act nael Perez Mora MD Active CHERATUSSIN AC 100-10 MG/5ML ORAL SYRUP 1 tsp by mouth every 4 hours as needed for cough GUAIFENESIN-CODEINE 75240500636 No Longe r Active Hugo Restrepo MD Active ACETAMINOPHEN-CODEINE #3 300-30 MG ORAL TABLET 1 PO Q 4-6 HRS ND N PAIN ACETAMINOPHEN-CODEINE 23012782026 No Longer Active Hugo Restrepo MD Active LEVAQUIN 500 MG ORAL TABLET take one po QD LEVO FLOXACIN 29393936362 No Longer Active Griffin HERNANDEZ Active PREDNISONE 20 MG ORAL TABLET Take 3 tabs daily for 3 d ays, 2 tabs daily for 3 days, 1 tab daily for 3 days, 1/2 tab daily for 3 days 11/07 PREDNISONE 39482945827 No Longer Active Carlton Hu MD Acti ve AVELOX 400 MG ORAL TABLET 1 tab by mouth daily MOXIFLOXACIN HCL 99917548034 No Longer Active Carlton Hu MD Active CHERATUSSIN AC 100-10 MG/5ML ORAL SYRUP 1 tsp by mouth every 4 hours as needed for cough GUAIFENESIN-CODEINE 73481506669 No Longe r Active Hugo Restrepo MD Active AVELOX 400 MG ORAL TABLET 1 tab by mouth daily MOXIFLOXACIN HCL 97353622343 No Longer Active Marcy De La Rosa MD PhD Active TERBINAFINE HCL 250 MG ORAL TABLET 1 qDay T ERBINAFINE HCL 73131803918 No Longer Active Marcy De La Rosa MD PhD Active CHERATUSSIN AC 100-10 MG/5ML ORAL SYRUP 1 tsp by mouth every 4 hours as needed for cough GUAIFENESIN-CODEINE 39777389589 No Longe r Active Marcy De La Rosa MD PhD Active AVELOX 400 MG ORAL TABLET 1 tab by mouth daily MOXIFLOXACIN HCL 70944567900 No Longer Active Marcy De La Rosa MD PhD Active HYDROCODONE-ACETAMINOPHEN 5-325 MG ORAL TABLET 1 po q 6hr PRN co ugh HYDROCODONE-ACETAMINOPHEN 26901535174 No Longer Active Marcy De La Rosa MD PhD Active PREDNISONE 20 MG ORAL TABLET 2 tabs daily for 3 days, 1 tab daily for 3 days, 1/2 tab daily for 2 days PREDNISONE 94966468765 No Longer Active Carlton Hu MD Active CEFDINIR 300 MG ORAL CAPSULE by mouth twice a day 2011 CEFDINIR 01220927336 No Longer Active Carlton Hu MD Acti ve HYDROCHLOROTHIAZIDE 25 MG ORAL TABLET 1 TAB PO DAILY HYDROCHLOROTHIAZIDE 62801773985 Active Carlton Hu MD A ctive ACETAMINOPHEN-CODEINE #3 300-30 MG ORAL TABLET 1 tablet po q 4-6 hrs prn pain ACETAMINOPHEN-CODEINE 73835656649 No Longer Active Ridge Bess DO Active ZITHROMAX 250 MG ORAL TABLET 2 po today, then 1 po q days 2-5 20 03/07/07 AZITHROMYCIN 62101062004 No Longer Active Carlton Hu MD Active CHERATUSSIN AC 100-10 MG/5ML ORAL SYRUP take 1 tsp po q4-6 h ours prn cough GUAIFENESIN-CODEINE 23120628894 No Longer Active Jayden Hu MD Active ACETAMINOPHEN-CODEINE #3 300-30 MG ORAL TABLET 1 PO Q 4-6 HR PRN PAIN ACETAMINOPHEN-CODEINE 80109693596 No Longer Active Da raimundo Hu MD Active LORTAB 7.5-500 MG/15ML ORAL ELIXIR 7.5 ml po q 4 hour prn cough HYDROCODONE-ACETAMINOPHEN 15832489460 No Longer Active Carlton Hu MD Active PREDNISONE 20 MG ORAL TABLET 1 po bid 3 days, then 1 po q day 3 days PREDNISONE 84695406180 No Longer Active Carlton Hu MD Active CEFDINIR 300 MG ORAL CAPSULE by mouth twice a day 2011 CEFDINIR 20041679326 No Longer Active Carlton Hu MD Acti ve CEFDINIR 300 MG ORAL CAPSULE by mouth twice a day 2010 CEFDINIR 61447158181 No Longer Active Carlton Hu MD Acti ve CEFDINIR 300 MG ORAL CAPSULE by mouth twice a day 2010 CEFDINIR 47294851647 No Longer Active Carlton Hu MD Acti ve TESSALON PERLES 100 MG ORAL CAPSULE 1 tablet by mouth 3 times daily as needed for cough BENZONATATE 66468270383 No Longer Active Carlton Hu MD Active CEFDINIR 300 MG ORAL CAPSULE by mouth twice a day 2010 CEFDINIR 94137191856 No Longer Active Carlton Hu MD Acti ve ZITHROMAX Z-REYNA 250 MG ORAL TABLET 2 today, then 1 daily for 4 d ays AZITHROMYCIN 72246263872 No Longer Active Hugo Restrepo MD Active TESSALON PERLES 100 MG ORAL CAPSULE 1 tablet by mouth 3 times daily as needed for cough TESSALON PERLES 100 MG ORAL CAPSULE 07152 7 BENZONATATE Inactive PREDNISONE 20 MG ORAL TABLET 1 po bid 3 days, then 1 po q day 3 days PREDNISONE 20 MG ORAL TABLET 822097 PREDNISONE [place] ctive LORTAB 7.5-500 MG/15ML ORAL ELIXIR 7.5 [...] cough CHERATUSSIN AC 100-10 MG/5ML ORAL SYRUP 365427 GUAIFENESIN-CODEINE Inactive ACETAMINOPHEN-CODEINE #3 300-30 MG ORAL TABLET 1 tablet po q 4-6 hrs prn pain ACETAMINOPHEN-CODEINE #3 300-30 MG ORAL TABLET ACETAMINOPHEN-CODEINE Inactive HYDROCODONE-ACETAMINOPHEN 5-325 MG ORAL TABLET 1 po q 6hr PRN co ugh HYDROCODONE-ACETAMINOPHEN 5-325 MG ORAL TABLET 714007 HYDROCODONE-ACETAMINOPHEN Inactive AVELOX 400 MG ORAL TABLET 1 tab by mouth daily AVELOX 400 MG ORAL TABLET 157373 MOXIFLOXACIN HCL Inactive CHERATUSSIN AC 100-10 MG/5ML ORAL SYRUP 1 tsp by mouth every 4 hours as needed for cough CHERATUSSIN AC 100-10 MG/5ML ORAL SYRUP 9 65475 GUAIFENESIN-CODEINE Inactive TERBINAFINE HCL 250 MG ORAL TABLET 1 qDay 07/08 TERBINAFINE HCL 250 MG ORAL TABLET 749784 TERBINAFINE HCL Inactive CHERATUSSIN AC 100-10 MG/5ML ORAL SYRUP 1 tsp by mouth every 4 hours as needed for cough CHERATUSSIN AC 100-10 MG/5ML ORAL SYRUP 9 48508 GUAIFENESIN-CODEINE Inactive ACETAMINOPHEN-CODEINE #3 300-30 MG ORAL TABLET 1 PO Q 4-6 HRS ND N PAIN ACETAMINOPHEN-CODEINE #3 300-30 MG ORAL TABLET ACETAMINOPHEN-CODEINE Inactive CHERATUSSIN AC 100-10 MG/5ML ORAL SYRUP 1 tsp by mouth every 4 hours as needed for cough CHERATUSSIN AC 100-10 MG/5ML ORAL SYRUP 9 34798 GUAIFENESIN-CODEINE Inactive AUGMENTIN 875-125 MG ORAL TABLET 1 tab by mouth twice daily with food AUGMENTIN 875-125 MG ORAL TABLET 322414 AMOXICIL MADELINE-POT CLAVULANATE Inactive CHERATUSSIN AC 100-10 MG/5ML ORAL SYRUP take one tsp po Q 6h ours prn cough CHERATUSSIN AC 100-10 MG/5ML ORAL SYRUP 092078 GUAIFENESIN-CODEINE Inactive PROPRANOLOL HCL 60 MG ORAL TABLET 1 PO Q D PROPRANOLOL HCL 60 MG ORAL TABLET 020413 PROPRANOLOL HCL Inactive TOPAMAX 50 MG ORAL TABLET take 1 tab po BID for migraines. 07/02 TOPAMAX 50 MG ORAL TABLET 858202 TOPIRAMATE Inacti ve TOPAMAX 25 MG ORAL TABLET 1 qHS x 1 week, then 1 BID x 1 week, then 1 qAM and 2 qHS x 1 week, then 2 BID (migraine prevention) TOPAMAX 25 MG ORAL TABLET 254850 TOPIRAMATE Inactive LYRICA 75 MG ORAL CAPSULE TAKE 1 CAPSULE BY MOUTH TWICE DAILY LYRICA 75 MG ORAL CAPSULE PREGABALIN Inactive SYMBICORT 160-4.5 MCG/ACT INHALATION AEROSOL 2 puffs bid wit h rinse after SYMBICORT 160-4.5 MCG/ACT INHALATION AEROSOL BUDESONIDE- FORMOTEROL FUMARATE Inactive PROMETHAZINE-CODEINE 6.25-10 MG/5ML ORAL SYRUP 1 tsp b y mouth every 8 hours prn cough PROMETHAZINE-CODEINE 6.25-10 MG/ 5ML ORAL SYRUP 680438 PROMETHAZINE-CODEINE Inactive CYMBALTA 30 MG ORAL CAPSULE DELAYED RELEASE PARTICLES 1 cap by mouth daily CYMBALTA 30 MG ORAL CAPSULE DELAYED RELE ASE PARTICLES 143627 DULOXETINE HCL Inactive PREMARIN 0.625 MG ORAL TABLET TAKE 1 TAB BY MOUTH DAILY PREMARIN 0.625 MG ORAL TABLET ESTROGENS CONJUGATED Inactive CHERATUSSIN AC 100-10 MG/5ML ORAL SYRUP 1 tsp by mouth every 4 hours as needed for cough CHERATUSSIN AC 100-10 MG/5ML ORAL SYRUP 9 32969 GUAIFENESIN-CODEINE Inactive PROMETHAZINE-CODEINE 6.25-10 MG/5ML ORAL SYRUP 1 tsp b y mouth every 6 hours if needed for cough PROMETHAZINE-CODEINE 6.25-10 MG/5ML ORAL SYRUP 321130 PROMETHAZINE-CODEINE Inactive CHERATUSSIN AC 100-10 MG/5ML ORAL SYRUP 1 tsp by mouth every 4 hours as needed for cough CHERATUSSIN AC 100-10 MG/5ML ORAL SYRUP 9 85800 GUAIFENESIN-CODEINE Inactive FLUTICASONE PROPIONATE 50 MCG/ACT NASAL SUSPENSION 1 t o 2 sprays each nostril daily FLUTICASONE PROPIONATE 50 MCG/AC T NASAL SUSPENSION 8488195 FLUTICASONE PROPIONATE Inactive PREDNISONE 20 MG ORAL TABLET 3 tab PO qd x 2d, 2 tab P O qd x 2d, 1 tab PO qd x 2d, 1/2 tab PO qd x 2d PREDNISONE 20 MG ORAL TAB LET 159031 PREDNISONE Inactive LEVOFLOXACIN 500 MG ORAL TABLET 1 tab PO daily x 10 days LEVOFLOXACIN 500 MG ORAL TABLET 178266 LEVOFLOXACIN Inactive CYCLOBENZAPRINE HCL 10 MG ORAL TABLET 1 tablet by mouth BID prn had pain CYCLOBENZAPRINE HCL 10 MG ORAL TABLET 095815 CYCLOBENZAPRINE HCL Inactive ZOCOR 40 MG ORAL TABLET 1 tab by mouth daily 4 ZOCOR 40 MG ORAL TABLET 773345 SIMVASTATIN Inactive TUSSIONEX PENNKINETIC ER 10-8 MG/5ML [...] FLUTICASONE PROPIO EFE 50 MCG/ACT NASAL SUSPENSION 9585071 FLUTICASONE PROPIONATE Inactive TUSSIONEX PENNKINETIC ER 10-8 [...] three days PREDNISONE 20 MG ORAL TABLET 865826 PREDNIS ONE Inactive ZITHROMAX Z-REYNA 250 MG ORAL TABLET 2 today, then 1 daily for 4 d ays ZITHROMAX Z-REYNA 250 MG ORAL TABLET 811468 AZITHROMYCIN Inactive CEFDINIR 300 MG ORAL CAPSULE [...] 20 03/07/07 ZITHROMAX 250 MG ORAL TABLET 651407 AZITHROMYCIN [place] ctive CEFDINIR 300 MG ORAL CAPSULE by mouth twice a day 2011 CEFDINIR 300 MG ORAL CAPSULE 733684 CEFDINIR Inactive PREDNISONE 20 MG ORAL TABLET 2 tabs daily for 3 days, 1 tab daily for 3 days, 1/2 tab daily for 2 days PREDNISONE 20 MG ORAL T ABLET 001014 PREDNISONE Inactive AVELOX 400 MG ORAL TABLET 1 tab by mouth daily AVELOX 400 MG ORAL TABLET 692121 MOXIFLOXACIN HCL Inactive AVELOX 400 MG ORAL TABLET 1 tab by mouth daily AVELOX 400 MG ORAL TABLET 915368 MOXIFLOXACIN HCL Inactive PREDNISONE 20 MG ORAL TABLET Take 3 tabs daily for 3 d ays, 2 tabs daily for 3 days, 1 tab daily for 3 days, 1/2 tab daily for 3 days 11/07 PREDNISONE 20 MG ORAL TABLET 155422 PREDNISONE Inactive LEVAQUIN 500 MG ORAL TABLET take one po QD LEVAQUIN 500 MG ORAL TABLET 537683 LEVOFLOXACIN Inactive AZITHROMYCIN 250 MG ORAL TABLET 2 po qd x 1 day, then 1 po q d x 4 days AZITHROMYCIN 250 MG ORAL TABLET 797919 AZITHROMY GIOVANNI Inactive MEDROL 4 MG ORAL TABLET THERAPY PACK 6 tabs on day 1, 5 tabs on day 2, 4 tabs on day 3, 3 tabs on day 4, 2 tabs on day 5, 1 tab on day 6 2013 MEDROL 4 MG ORAL TABLET THERAPY PACK 668065 METHYLPREDNISOLONE [place] ctive CHERATUSSIN AC 100-10 MG/5ML ORAL SYRUP 5ml po q6hr PRN Cough 20 13/04/14 CHERATUSSIN AC 100-10 MG/5ML ORAL SYRUP 911138 GUAIFENE SIN-CODEINE Inactive TRIAMCINOLONE ACETONIDE 0.1 % EXTERNAL CREAM apply three roger es daily prn rash TRIAMCINOLONE ACETONIDE 0.1 % EXTERNAL CREAM 101 4314 TRIAMCINOLONE ACETONIDE Inactive AZITHROMYCIN 250 MG ORAL TABLET 2 po qd x 1 day, then 1 po q d x 4 days AZITHROMYCIN 250 MG ORAL TABLET 135537 AZITHROMY GIOVANNI Inactive MEDROL 4 MG ORAL TABLET THERAPY PACK 6 pills x 1 day, then 5 pills x 1 day then 4 pills x 1 day, then 3 pills x 1 day, then 2 pills x 1 day, then 1 pill x 1 day, then stop MEDROL 4 MG ORAL TABLET THERAPY PACK 545743 METHYLPREDNISOLONE Inactive AMOXICILLIN 500 MG ORAL CAPSULE 1 tab by mouth 3 times daily x 10 days AMOXICILLIN 500 MG ORAL CAPSULE 150022 AMOXICILL IN Inactive AMOXICILLIN 500 MG ORAL CAPSULE 1 tab by mouth 3 times daily x 10 days AMOXICILLIN 500 MG ORAL CAPSULE 376985 AMOXICILL IN Inactive ZITHROMAX 250 MG ORAL TABLET 2 po today, then 1 po q days 2-5 20 12/08/14 ZITHROMAX 250 MG ORAL TABLET 821553 AZITHROMYCIN [place] ctive AUGMENTIN 875-125 MG ORAL TABLET 1 po BID x 10 days 20 13/01/20 AUGMENTIN 875-125 MG ORAL TABLET 890874 AMOXICILLIN-POT CLAVULANATE Inactive ZITHROMAX Z-REYNA 250 MG ORAL TABLET 2 today, then 1 daily for 4 d ays ZITHROMAX Z-REYNA 250 MG ORAL TABLET 086452 AZITHROMYCIN Inactive ZITHROMAX 250 MG ORAL TABLET 2 po today, then 1 po q days 2-5 20 14/03/21 ZITHROMAX 250 MG ORAL TABLET 245604 AZITHROMYCIN [place] ctive ZITHROMAX Z-REYNA 250 MG ORAL TABLET 2 today, then 1 daily for 4 d ays ZITHROMAX Z-REYNA 250 MG ORAL TABLET 999908 AZITHROMYCIN Inactive CEFDINIR 300 MG ORAL CAPSULE 1 po BID x 10 days 06/21 CEFDINIR 300 MG ORAL CAPSULE 620906 CEFDINIR Inactive ZITHROMAX 250 MG ORAL TABLET 2 po today, then 1 po q days 2-5 20 13/08/10 ZITHROMAX 250 MG ORAL TABLET 464393 AZITHROMYCIN [place] ctive LEVAQUIN 500 MG ORAL TABLET 1 tablet by mouth daily 13/09/24 LEVAQUIN 500 MG ORAL TABLET 458047 LEVOFLOXACIN Inactive SINGULAIR 10 MG ORAL TABLET 1 po qday for allergies 20 14/01/12 SINGULAIR 10 MG ORAL TABLET 574780 MONTELUKAST SODIUM Inactive AMOXICILLIN 500 MG ORAL CAPSULE 2 po BID x 10 days 201 09/29/08 AMOXICILLIN 500 MG ORAL CAPSULE 952779 AMOXICILLIN Inactive PREDNISONE 20 MG ORAL TABLET 2 tabs daily for 3 days, 1 tab daily for 3 days, 1/2 tab daily for 2 days PREDNISONE 20 MG ORAL T ABLET 719464 PREDNISONE Inactive ZITHROMAX Z-REYNA 250 MG ORAL TABLET 2 today, then 1 daily for 4 d ays ZITHROMAX Z-REYNA 250 MG ORAL TABLET 232066 AZITHROMYCIN Inactive PREDNISONE 20 MG ORAL TABLET 2 tabs daily for 3 days, 1 tab daily for 3 days, 1/2 tab daily for 2 days PREDNISONE 20 MG ORAL T ABLET 734904 PREDNISONE Inactive ZITHROMAX 250 MG ORAL TABLET 2 po today, then 1 po q days 2-5 20 14/09/04 ZITHROMAX 250 MG ORAL TABLET 979390 AZITHROMYCIN [place] ctive AMOXICILLIN 500 MG ORAL CAPSULE 1 cap by mouth three times a day AMOXICILLIN 500 MG ORAL CAPSULE 135640 AMOXICILLIN Inactive TERBINAFINE HCL 250 MG ORAL TABLET 1 qDay for nail fungus 7 TERBINAFINE HCL 250 MG ORAL TABLET 046405 TERBINAFINE HCL Inact nael AUGMENTIN 875-125 MG ORAL TABLET 1 po BID x 10 days 16/03/22 AUGMENTIN 875-125 MG ORAL TABLET 196469 AMOXICILLIN-POT CLAVULANATE Inactive Vital Signs Date Name [...] - Chem istry sodium, serum 132 mmol/L 051-890 4356/07/12 potassium, serum 2.7 mmol/L 3.5-5.2 chloride, serum 93 mmol/L 98-107 carbon dioxide, venous blood 30.8 mmol/L 21.0-32 .0 blood glucose 107 mg/dL 65-110 calcium, serum 9.3 mg/dL 8.5-10.1 urea nitrogen, blood 12 mg/dL 7-18 creatinine, serum 1.00 mg/dL 0.60-1.30 sodium, serum 142 mmol/L 841-415 2709/07/17 potassium, serum 4.2 mmol/L 3.5-5.2 chloride, serum 106 mmol/L 98-107 carbon dioxide, venous blood 29.9 mmol/L 21.0-32 .0 blood glucose 108 mg/dL 65-110 calcium, serum 9.1 mg/dL 8.5-10.1 urea nitrogen, blood 11 mg/dL 7-18 creatinine, serum 0.81 mg/dL 0.60-1.30 Lab Report: Rapid Strep - Lab Microbial identification kit, rapid strep method Negative Negative Encounters Code Encounter Date Provider Facility [id number] Level 4 Est. Patient 09:51:32 NURSING PROGRAM CHAIR Carlton rich MD [id number] Level 3 Est. Patient 10:26:00 NURSING PROGRAM CHAIR [place] [facility]-[id number] Level 3 Est. Patient 13:35:41 NURSING PROGRAM CHAIR Carlton rich MD [facility]-07563 Level 3 Est. Patient 10:03:52 NURSING PROGRAM CHAIR Carlton rich MD [facility]-11986 Level 3 Est. Patient 12:17:50 CDT Hugo Restrepo MD [facility]-31814 Level 3 Est. Patient 13:42:38 CDT Italo [facility]-85286 Level 3 Est. Patient 13:23:51 CDT Diya cobian [facility]-27633 Level 3 Est. Patient 14:22:19 NURSING PROGRAM CHAIR Diya cobian [facility]-85511 Level 3 Est. Patient 10:11:46 CDT Carlton rich MD [facility]-69701 Level 3 Est. Patient 17:29:43 CDT Italo [facility]-87442 Level 3 Est. Patient 11:58:06 CDT Italo [facility]-47425 Level 4 Est. Patient 14:36:51 CDT Carlton rich MD [facility]-18807 Level 3 Est. Patient 18:16:00 NURSING PROGRAM CHAIR Blaine Freeman [facility] CPT-97175 Level 3 Est. Patient 09:45:49 NURSING PROGRAM CHAIR Carlton rich MD [facility] CPT-65633 Level 3 Est. Patient 13:19:20 CDT Carlton rich MD [facility] CPT-90567 Level 3 Est. Patient 13:06:43 CDT Ridge tam DO [facility] CPT-87951 Level 3 Est. Patient 10:03:07 CDT Perez Mora MD [facility] CPT-24244 Level 3 Est. Patient 19:50:35 NURSING PROGRAM CHAIR Carlton rich MD [facility]-63224 Level 4 Est. Patient 18:05:01 NURSING PROGRAM CHAIR Carlton rich MD [facility] CPT-48392 Level 3 Est. Patient 10:45:55 NURSING PROGRAM CHAIR Hugo Restrepo MD [facility] CPT-75767 Level 3 Est. Patient 14:12:49 CDT Griffin lincoln [facility] CPT-02739 Level 3 Est. Patient 17:37:24 CDT Carlton rich MD [facility] CPT-76778 Level 3 Est. Patient 16:51:54 CDT Carlton irch MD [facility] CPT-95991 Level 3 Est. Patient 12:18:11 CDT Hugo Restrepo MD [facility] CPT-93905 Level 3 Est. Patient 11:30:25 CDT Marcy crisostomo MD PhD [facility]-37446 Level 3 Est. Patient 12:00:47 NURSING PROGRAM CHAIR Carlton rich MD [facility] CPT-12282 Level 3 Est. Patient 16:31:06 NURSING PROGRAM CHAIR Carlton rich MD [facility] CPT-06864 Level 3 Est. Patient 16:23:24 NURSING PROGRAM CHAIR Ridge tam [facility] CPT-28718 Level 3 Est. Patient 12:34:12 CDT Carlton rich MD [facility] CPT-02278 Level 2 Est. Patient 15:43:33 CDT Robi armstrong MD [facility] CPT-60986 Level 4 Est. Patient 14:04:44 CDT Carlton rich MD [facility] CPT-06393 Level 3 Est. Patient 05:47:59 CDT Ridge tam [facility] CPT-10259 Level 3 Est. Patient 13:12:53 NURSING PROGRAM CHAIR Carlton rich MD [facility] CPT-10764 Level 3 Est. Patient 14:26:53 CDT Hugo [...] CPT-J1100 Decadron 6mg (Dexamethasone) 14:32:13 CDT 2 CPT-73921 Hip bilat min 2V w AP pelvis 13:16:20 CDT 2 CPT-65074 Pelvis only 13:07:33 CDT CPT-09151 Spec Collection and Handling Fee 11:25:12 C DT CPT-48979 Fluzone Quadrivalent Intramuscular Suspe nsion 0.5 ML 14:31:55 CDT CPT-91212 Abx/Therapy Injection 13:28:47 NURSING PROGRAM CHAIR CPT-J2930 Solu Medrol 125 mg (Methyl Prednisolone Sodium Succinate) 12:00:47 NURSING PROGRAM CHAIR CPT-00334 Venipuncture Draw Fee 11:33:31 CDT CPT-35835 EKG Trac and Interp 11:21:09 CDT CPT-51188 Chest 2V Frontal and Lat 11:21:09 CDT 12/15 CPT-03826 Venipuncture Draw Fee 08:02:34 CDT CPT-95938 Chest 2V Frontal and Lat 05:47:59 CDT 06/05
--- OUTSIDE RECORDS SUMMARY | 2019-10-08 09:36 | XMS REPORT | Clinical Summary ---
[...] po qd x 5 days P REDNISONE [id number] No Longer Active Perez Mora MD Active PROAIR HFA 108 (90 BASE) MCG/ACT INHALATION AEROSOL SO LUTION 2 puffs four times a day as needed ALBUTEROL SULFATE [id number] No Long er Active Becky FUENTES Active ASPIRIN 81 MG ORAL TABLET 1 po qd ASPIRIN 60708384092 Active Carlton Hu MD Active PREDNISONE 20 MG ORAL TABLET 1 tab twice daily for 3 d ay, then one daily for three days PREDNISONE 33048606894 No Longer Active Carlton Hu MD Active AUGMENTIN 875-125 MG ORAL TABLET 1 po BID x 10 days 20 16/03/22 AMOXICILLIN-POT CLAVULANATE 21786782859 No Longer Active Elise Garcia APRN Active TERBINAFINE HCL 250 MG ORAL TABLET 1 qDay for nail fungus 7 TERBINAFINE HCL 52987325314 No Longer Active Carlton Hu MD A ctive TUSSIONEX PENNKINETIC ER 10-8 MG/5ML ORAL SUSPENSION E XTENDED RELEASE 5ml po q12hr PRN Cough HYDROCOD POLST-CHLORPHEN POLST 31128758408 Active Carlton Hu MD Active AMOXICILLIN 500 MG ORAL CAPSULE 1 cap by mouth three times a day AMOXICILLIN 94798295098 No Longer Active Carlton Hu MD Active ELMIRON 100 MG ORAL CAPSULE 2 tablets in the am and 1 tablet at hs PENTOSAN POLYSULFATE SODIUM 93168268701 No Longer Active Robert jade Hu MD Active MUCINEX D 60-600 MG ORAL TABLET EXTENDED RELEASE 12 HOUR 1 t ab po q am PSEUDOEPHEDRINE-GUAIFENESIN 67246060446 No Longer Act nael Carlton Hu MD Active MUCINEX DM MAXIMUM STRENGTH 60-1200 MG ORAL TABLET EXT ENDED RELEASE 12 HOUR 1 tab po q am DEXTROMETHORPHAN-GUAIFENESIN 97343654407 No Longer Active Carlton Hu MD Active TUSSIONEX PENNKINETIC ER 10-8 MG/5ML ORAL SUSPENSION E XTENDED RELEASE 5ml po q12hr PRN Cough HYDROCOD POLST-CHLORPHEN POLST 5 6855929246 No Longer Active Carlton Hu MD Active POTASSIUM CHLORIDE ER 20 MEQ ORAL TABLET EXTENDED RELE ASE Take 1 by mouth 4 times daily for 7 days POTASSIUM CHLORIDE 79091597061 No Longer Active Carlton Hu MD Active ZITHROMAX 250 MG ORAL TABLET 2 po today, then 1 po q days 2-5 20 14/09/04 AZITHROMYCIN 48361880446 No Longer Active Elise Garcia APRN Active TUSSIONEX PENNKINETIC ER 10-8 MG/5ML ORAL SUSPENSION E XTENDED RELEASE 5 ml twice a day as needed for cough HYDROCOD POLST-CHLORPH EN POLST 37134839512 No Longer Active Elise Garcia APRN Active MONTELUKAST SODIUM 10 MG ORAL TABLET 1 po daily for Allergy MONTELUKAST SODIUM 70296663521 Active Carlton Hu MD Ac tive TUSSIONEX PENNKINETIC ER 10-8 MG/5ML ORAL SUSPENSION E XTENDED RELEASE 5ml po q12hr PRN Cough HYDROCOD POLST-CHLORPHEN POLST 5 3580488977 No Longer Active Hugo Restrepo MD Active GABAPENTIN 100 MG ORAL CAPSULE 1 po BID for fibromyalgia GABAPENTIN 12172275746 Active Carlton Hu MD Active LYRICA 100 MG ORAL CAPSULE Take 1 tab po BID for fibromyalgia 20 11/08/21 PREGABALIN 49165161821 No Longer Active Elise Garcia APRN A ctive PREDNISONE 20 MG ORAL TABLET 2 tabs daily for 3 days, 1 tab daily for 3 days, 1/2 tab daily for 2 days PREDNISONE 72313026993 No Longer Active Diya De Guzman APRN Active TUSSIONEX PENNKINETIC ER 10-8 MG/5ML ORAL SUSPENSION E XTENDED RELEASE 5 mL PO q 12 hrs PRN cough HYDROCOD POLST-CHLORPHEN POLST 318142 33171 No Longer Active Jillina Gege KHAN Active FLUTICASONE PROPIONATE 50 MCG/ACT NASAL SUSPENSION 2 s prays each nostril daily until bottle is empty FLUTICASONE PROPIONATE 657514575 99 No Longer Active Diya De Guzman APRN Active ASMANEX 60 METERED DOSES 220 MCG/INH INHALATION AEROSO L POWDER BREATH ACTIVATED 1 puff bid with rinse after MOMETASONE FUROATE 1523366 4102 No Longer Active Diya De Guzman APRN Active ZITHROMAX Z-REYNA 250 MG ORAL TABLET 2 today, then 1 daily for 4 d ays AZITHROMYCIN 69955946142 No Longer Active Elise Garcia APRN Active TUSSIONEX PENNKINETIC ER 10-8 MG/5ML ORAL SUSPENSION E XTENDED RELEASE 5ml po q12hr PRN Cough HYDROCOD POLST-CHLORPHEN POLST 5 7683388463 No Longer Active Elise Garcia APRN Active PREDNISONE 20 MG ORAL TABLET 2 tabs daily for 3 days, 1 tab daily for 3 days, 1/2 tab daily for 2 days PREDNISONE 81866771105 No Longer Active Diya De Guzman APRN Active AMOXICILLIN 500 MG ORAL CAPSULE 2 po BID x 10 days 201 09/29/08 AMOXICILLIN 80032549894 No Longer Active Diya De Guzman APRN Act nael SINGULAIR 10 MG ORAL TABLET 1 po qday for allergies 20 14/01/12 MONTELUKAST SODIUM 35379332285 No Longer Active Carlton Hu MD Active LEVAQUIN 500 MG ORAL TABLET 1 tablet by mouth daily 20 13/09/24 LEVOFLOXACIN 43802869169 No Longer Active Carlton Hu MD Acti ve FLUTICASONE PROPIONATE 50 MCG/ACT NASAL SUSPENSION 2 s prays each nostril daily for 2 weeks, then 1 spray each nostril daily. FLUTICASONE PROPIONATE 07265766582 Active Elise Garcia APRN Active ZITHROMAX 250 MG ORAL TABLET 2 po today, then 1 po q days 2-5 20 13/08/10 AZITHROMYCIN 02003855882 No Longer Active Elise Garcia APRN Active XANAX 0.5 MG ORAL TABLET one tablet by mouth daily prn anxiety 2015 ALPRAZOLAM 89314722803 Active ALFREDO Holly Active CYMBALTA 30 MG ORAL CAPSULE DELAYED RELEASE PARTICLES 1 cap by mouth daily for depression DULOXETINE HCL 60252680924 Active Carlton beltrán MD Active CEFDINIR 300 MG ORAL CAPSULE 1 po BID x 10 days CEFDINIR 50316797455 No Longer Active Carlton Hu MD Active ZOCOR 40 MG ORAL TABLET 1 tab by mouth daily SI MVASTATIN 93440500526 No Longer Active Carlton Hu MD Active CYCLOBENZAPRINE HCL 10 MG ORAL TABLET 1 tablet by mouth BID prn had pain CYCLOBENZAPRINE HCL 65829744432 No Longer Active Jayden Hu MD Active LEVOFLOXACIN 500 MG ORAL TABLET 1 tab PO daily x 10 days LEVOFLOXACIN 60401092431 No Longer Active Carlton Hu MD Acti ve PREDNISONE 20 MG ORAL TABLET 3 tab PO qd x 2d, 2 tab P O qd x 2d, 1 tab PO qd x 2d, 1/2 tab PO qd x 2d PREDNISONE 29824947416 No Lo nger Active Carlton Hu MD Active FLUTICASONE PROPIONATE 50 MCG/ACT NASAL SUSPENSION 1 t o 2 sprays each nostril daily FLUTICASONE PROPIONATE 09415664332 No Longer Ac tive Blaine HERNANDEZ Active CHERATUSSIN AC 100-10 MG/5ML ORAL SYRUP 1 tsp by mouth every 4 hours as needed for cough GUAIFENESIN-CODEINE 22869768510 No Longe r Active Blaine HERNANDEZ Active PROMETHAZINE-CODEINE 6.25-10 MG/5ML ORAL SYRUP 1 tsp b y mouth every 6 hours if needed for cough PROMETHAZINE-CODEINE 08450465095 No Longer Active Blaine HERNANDEZ Active CHERATUSSIN AC 100-10 MG/5ML ORAL SYRUP 1 tsp by mouth every 4 hours as needed for cough GUAIFENESIN-CODEINE 10336802227 No Longe r Active Blaine HERNANDEZ Active ZITHROMAX Z-REYNA 250 MG ORAL TABLET 2 today, then 1 daily for 4 d ays AZITHROMYCIN 48768136795 No Longer Active Columba Raida Act nael ZITHROMAX 250 MG ORAL TABLET 2 po today, then 1 po q days 2-5 20 14/03/21 AZITHROMYCIN 35709889884 No Longer Active Carlton Hu MD Active ZITHROMAX Z-REYNA 250 MG ORAL TABLET 2 today, then 1 daily for 4 d ays AZITHROMYCIN 40935951542 No Longer Active Columba Raida Act nael AUGMENTIN 875-125 MG ORAL TABLET 1 po BID x 10 days 13/01/20 AMOXICILLIN-POT CLAVULANATE 15239226055 No Longer Active Diya De Guzman APRN Active ZITHROMAX 250 MG ORAL TABLET 2 po today, then 1 po q days 2-5 20 12/08/14 AZITHROMYCIN 97046637878 No Longer Active Carlton Hu MD Active TRAMADOL HCL 50 MG ORAL TABLET 1 po tid with ES Tylenol TRAMADOL HCL 83434773742 Active ALFREDO Holly Active PREMARIN 0.625 MG ORAL TABLET TAKE 1 TAB BY MOUTH DAILY ESTROGENS CONJUGATED 59932132426 No Longer Active Ridge Bess DO A ctive CYMBALTA 30 MG ORAL CAPSULE DELAYED RELEASE PARTICLES 1 cap by mouth daily DULOXETINE HCL 14323741780 No Longer Active Ridge tam DO Active AMOXICILLIN 500 MG ORAL CAPSULE 1 tab by mouth 3 times daily x 10 days AMOXICILLIN 27083710340 No Longer Active Carlton bustamante MD Active AMOXICILLIN 500 MG ORAL CAPSULE 1 tab by mouth 3 times daily x 10 days AMOXICILLIN 36540515510 No Longer Active Carlton bustamante MD Active PROMETHAZINE-CODEINE 6.25-10 MG/5ML ORAL SYRUP 1 tsp b y mouth every 8 hours prn cough PROMETHAZINE-CODEINE 10377235797 No Longer Acti ve Carlton Hu MD Active MEDROL 4 MG ORAL TABLET THERAPY PACK 6 pills x 1 day, then 5 pills x 1 day then 4 pills x 1 day, then 3 pills x 1 day, then 2 pills x 1 day, then 1 pill x 1 day, then stop METHYLPREDNISOLONE 39730861864 No Long er Active Perez Mora MD Active AZITHROMYCIN 250 MG ORAL TABLET 2 po qd x 1 day, then 1 po q d x 4 days AZITHROMYCIN 38684509814 No Longer Active Perez Ambriz MD Active SYMBICORT 160-4.5 MCG/ACT INHALATION AEROSOL 2 puffs bid wit h rinse after BUDESONIDE-FORMOTEROL FUMARATE 23882727046 N o Longer Active Perez Mora MD Active LYRICA 75 MG ORAL CAPSULE TAKE 1 CAPSULE BY MOUTH TWICE DAILY PREGABALIN 26122946192 No Longer Active Carlton Hu MD Acti ve TOPAMAX 25 MG ORAL TABLET 1 qHS x 1 week, then 1 BID x 1 week, then 1 qAM and 2 qHS x 1 week, then 2 BID (migraine prevention) T OPIRAMATE 32057465477 No Longer Active Jerica FUENTES Active TOPAMAX 50 MG ORAL TABLET take 1 tab po BID for migraines. 07/02 TOPIRAMATE 41827148368 No Longer Active Jerica FUENTES Active TOPAMAX 100 MG ORAL TABLET Take 1 tablet po bid TO PIRAMATE 93872038891 Active Carlton Hu MD Active TRIAMCINOLONE ACETONIDE 0.1 % EXTERNAL CREAM apply three roger es daily prn rash TRIAMCINOLONE ACETONIDE 14526475007 No Longer Active Carlton Hu MD Active PAXIL 40 MG ORAL TABLET take 1 tab po qday for depression 0 PAROXETINE HCL 37479783768 Active Perez Mora MD Active CHERATUSSIN AC 100-10 MG/5ML ORAL SYRUP 5ml po q6hr PRN Cough 20 13/04/14 GUAIFENESIN-CODEINE 71415384351 No Longer Active Carlton Hu MD Active MEDROL 4 MG ORAL TABLET THERAPY PACK 6 tabs on day 1, 5 tabs on day 2, 4 tabs on day 3, 3 tabs on day 4, 2 tabs on day 5, 1 tab on day 6 2013 METHYLPREDNISOLONE 38685189795 No Longer Active Perez Mora MD Active AZITHROMYCIN 250 MG ORAL TABLET 2 po qd x 1 day, then 1 po q d x 4 days AZITHROMYCIN 57531790260 No Longer Active Perez Ambriz MD Active PROPRANOLOL HCL 60 MG ORAL TABLET 1 PO Q D PROPRANOLOL HCL 71639526217 No Longer Active Perez Mora MD Activ e CHERATUSSIN AC 100-10 MG/5ML ORAL SYRUP take one tsp po Q 6h ours prn cough GUAIFENESIN-CODEINE 07633568115 No Longer Active Zia Mora MD Active AUGMENTIN 875-125 MG ORAL TABLET 1 tab by mouth twice daily with food AMOXICILLIN-POT CLAVULANATE 25517921002 No Longer Act nael Perez Mora MD Active CHERATUSSIN AC 100-10 MG/5ML ORAL SYRUP 1 tsp by mouth every 4 hours as needed for cough GUAIFENESIN-CODEINE 31501635453 No Longe r Active Hugo Restrepo MD Active ACETAMINOPHEN-CODEINE #3 300-30 MG ORAL TABLET 1 PO Q 4-6 HRS MT N PAIN ACETAMINOPHEN-CODEINE 68766339047 No Longer Active Hugo Restrepo MD Active LEVAQUIN 500 MG ORAL TABLET take one po QD LEVO FLOXACIN 61880016732 No Longer Active Griffin HERNANDEZ Active PREDNISONE 20 MG ORAL TABLET Take 3 tabs daily for 3 d ays, 2 tabs daily for 3 days, 1 tab daily for 3 days, 1/2 tab daily for 3 days 11/07 PREDNISONE 47257341098 No Longer Active Carlton Hu MD Acti ve AVELOX 400 MG ORAL TABLET 1 tab by mouth daily MOXIFLOXACIN HCL 21415046442 No Longer Active Carlton Hu MD Active CHERATUSSIN AC 100-10 MG/5ML ORAL SYRUP 1 tsp by mouth every 4 hours as needed for cough GUAIFENESIN-CODEINE 03168162127 No Longe r Active Hugo Restrepo MD Active AVELOX 400 MG ORAL TABLET 1 tab by mouth daily MOXIFLOXACIN HCL 58323583214 No Longer Active Marcy De La Rosa MD PhD Active TERBINAFINE HCL 250 MG ORAL TABLET 1 qDay T ERBINAFINE HCL 28996348759 No Longer Active Marcy De La Rosa MD PhD Active CHERATUSSIN AC 100-10 MG/5ML ORAL SYRUP 1 tsp by mouth every 4 hours as needed for cough GUAIFENESIN-CODEINE 03093412284 No Longe r Active Marcy De La Rosa MD PhD Active AVELOX 400 MG ORAL TABLET 1 tab by mouth daily MOXIFLOXACIN HCL 32628482438 No Longer Active Marcy De La Rosa MD PhD Active HYDROCODONE-ACETAMINOPHEN 5-325 MG ORAL TABLET 1 po q 6hr PRN co ugh HYDROCODONE-ACETAMINOPHEN 55568840766 No Longer Active Marcy De La Rosa MD PhD Active PREDNISONE 20 MG ORAL TABLET 2 tabs daily for 3 days, 1 tab daily for 3 days, 1/2 tab daily for 2 days PREDNISONE 14975539004 No Longer Active Carlton Hu MD Active CEFDINIR 300 MG ORAL CAPSULE by mouth twice a day 2011 CEFDINIR 11782191529 No Longer Active Carlton Hu MD Acti ve HYDROCHLOROTHIAZIDE 25 MG ORAL TABLET 1 TAB PO DAILY HYDROCHLOROTHIAZIDE 22803632008 Active Carlton Hu MD A ctive ACETAMINOPHEN-CODEINE #3 300-30 MG ORAL TABLET 1 tablet po q 4-6 hrs prn pain ACETAMINOPHEN-CODEINE 88303653730 No Longer Active Ridge Bess DO Active ZITHROMAX 250 MG ORAL TABLET 2 po today, then 1 po q days 2-5 20 03/07/07 AZITHROMYCIN 74146938052 No Longer Active Carlton Hu MD Active CHERATUSSIN AC 100-10 MG/5ML ORAL SYRUP take 1 tsp po q4-6 h ours prn cough GUAIFENESIN-CODEINE 32585833518 No Longer Active Jayden Hu MD Active ACETAMINOPHEN-CODEINE #3 300-30 MG ORAL TABLET 1 PO Q 4-6 HR PRN PAIN ACETAMINOPHEN-CODEINE 93016879732 No Longer Active Arnol Hu MD Active LORTAB 7.5-500 MG/15ML ORAL ELIXIR 7.5 ml po q 4 hour prn cough HYDROCODONE-ACETAMINOPHEN 98506749171 No Longer Active Carlton Hu MD Active PREDNISONE 20 MG ORAL TABLET 1 po bid 3 days, then 1 po q day 3 days PREDNISONE 37909676628 No Longer Active Carlton Hu MD Active CEFDINIR 300 MG ORAL CAPSULE by mouth twice a day 2011 CEFDINIR 72556361042 No Longer Active Carlton Hu MD Acti ve CEFDINIR 300 MG ORAL CAPSULE by mouth twice a day 2010 CEFDINIR 63280102117 No Longer Active Carlton Hu MD Acti ve CEFDINIR 300 MG ORAL CAPSULE by mouth twice a day 2010 CEFDINIR 84248214392 No Longer Active Carlton Hu MD Acti ve TESSALON PERLES 100 MG ORAL CAPSULE 1 tablet by mouth 3 times daily as needed for cough BENZONATATE 94301221055 No Longer Active Carlton Hu MD Active CEFDINIR 300 MG ORAL CAPSULE by mouth twice a day 2010 CEFDINIR 30655367917 No Longer Active Carlton Hu MD Acti ve ZITHROMAX Z-REYNA 250 MG ORAL TABLET 2 today, then 1 daily for 4 d ays AZITHROMYCIN 11885034967 No Longer Active Hugo Restrepo MD Active TESSALON PERLES 100 MG ORAL CAPSULE 1 tablet by mouth 3 times daily as needed for cough TESSALON PERLES 100 MG ORAL CAPSULE 64432 7 BENZONATATE Inactive PREDNISONE 20 MG ORAL TABLET 1 po bid 3 days, then 1 po q day 3 days PREDNISONE 20 MG ORAL TABLET 712422 PREDNISONE [place] ctive LORTAB 7.5-500 MG/15ML ORAL ELIXIR 7.5 [...] cough CHERATUSSIN AC 100-10 MG/5ML ORAL SYRUP 291311 GUAIFENESIN-CODEINE Inactive ACETAMINOPHEN-CODEINE #3 300-30 MG ORAL TABLET 1 tablet po q 4-6 hrs prn pain ACETAMINOPHEN-CODEINE #3 300-30 MG ORAL TABLET ACETAMINOPHEN-CODEINE Inactive HYDROCODONE-ACETAMINOPHEN 5-325 MG ORAL TABLET 1 po q 6hr PRN co ugh HYDROCODONE-ACETAMINOPHEN 5-325 MG ORAL TABLET 565204 HYDROCODONE-ACETAMINOPHEN Inactive AVELOX 400 MG ORAL TABLET 1 tab by mouth daily AVELOX 400 MG ORAL TABLET 191308 MOXIFLOXACIN HCL Inactive CHERATUSSIN AC 100-10 MG/5ML ORAL SYRUP 1 tsp by mouth every 4 hours as needed for cough CHERATUSSIN AC 100-10 MG/5ML ORAL SYRUP 9 67006 GUAIFENESIN-CODEINE Inactive TERBINAFINE HCL 250 MG ORAL TABLET 1 qDay 07/08 TERBINAFINE HCL 250 MG ORAL TABLET 637737 TERBINAFINE HCL Inactive CHERATUSSIN AC 100-10 MG/5ML ORAL SYRUP 1 tsp by mouth every 4 hours as needed for cough CHERATUSSIN AC 100-10 MG/5ML ORAL SYRUP 9 30884 GUAIFENESIN-CODEINE Inactive ACETAMINOPHEN-CODEINE #3 300-30 MG ORAL TABLET 1 PO Q 4-6 HRS MT N PAIN ACETAMINOPHEN-CODEINE #3 300-30 MG ORAL TABLET ACETAMINOPHEN-CODEINE Inactive CHERATUSSIN AC 100-10 MG/5ML ORAL SYRUP 1 tsp by mouth every 4 hours as needed for cough CHERATUSSIN AC 100-10 MG/5ML ORAL SYRUP 9 48815 GUAIFENESIN-CODEINE Inactive AUGMENTIN 875-125 MG ORAL TABLET 1 tab by mouth twice daily with food AUGMENTIN 875-125 MG ORAL TABLET 453445 AMOXICIL MADELINE-POT CLAVULANATE Inactive CHERATUSSIN AC 100-10 MG/5ML ORAL SYRUP take one tsp po Q 6h ours prn cough CHERATUSSIN AC 100-10 MG/5ML ORAL SYRUP 324993 GUAIFENESIN-CODEINE Inactive PROPRANOLOL HCL 60 MG ORAL TABLET 1 PO Q D PROPRANOLOL HCL 60 MG ORAL TABLET 491142 PROPRANOLOL HCL Inactive TOPAMAX 50 MG ORAL TABLET take 1 tab po BID for migraines. 07/02 TOPAMAX 50 MG ORAL TABLET 290951 TOPIRAMATE Inacti ve TOPAMAX 25 MG ORAL TABLET 1 qHS x 1 week, then 1 BID x 1 week, then 1 qAM and 2 qHS x 1 week, then 2 BID (migraine prevention) TOPAMAX 25 MG ORAL TABLET 781257 TOPIRAMATE Inactive LYRICA 75 MG ORAL CAPSULE TAKE 1 CAPSULE BY MOUTH TWICE DAILY LYRICA 75 MG ORAL CAPSULE PREGABALIN Inactive SYMBICORT 160-4.5 MCG/ACT INHALATION AEROSOL 2 puffs bid wit h rinse after SYMBICORT 160-4.5 MCG/ACT INHALATION AEROSOL BUDESONIDE- FORMOTEROL FUMARATE Inactive PROMETHAZINE-CODEINE 6.25-10 MG/5ML ORAL SYRUP 1 tsp b y mouth every 8 hours prn cough PROMETHAZINE-CODEINE 6.25-10 MG/ 5ML ORAL SYRUP 732643 PROMETHAZINE-CODEINE Inactive CYMBALTA 30 MG ORAL CAPSULE DELAYED RELEASE PARTICLES 1 cap by mouth daily CYMBALTA 30 MG ORAL CAPSULE DELAYED RELE ASE PARTICLES 387596 DULOXETINE HCL Inactive PREMARIN 0.625 MG ORAL TABLET TAKE 1 TAB BY MOUTH DAILY PREMARIN 0.625 MG ORAL TABLET ESTROGENS CONJUGATED Inactive CHERATUSSIN AC 100-10 MG/5ML ORAL SYRUP 1 tsp by mouth every 4 hours as needed for cough CHERATUSSIN AC 100-10 MG/5ML ORAL SYRUP 9 90322 GUAIFENESIN-CODEINE Inactive PROMETHAZINE-CODEINE 6.25-10 MG/5ML ORAL SYRUP 1 tsp b y mouth every 6 hours if needed for cough PROMETHAZINE-CODEINE 6.25-10 MG/5ML ORAL SYRUP 815376 PROMETHAZINE-CODEINE Inactive CHERATUSSIN AC 100-10 MG/5ML ORAL SYRUP 1 tsp by mouth every 4 hours as needed for cough CHERATUSSIN AC 100-10 MG/5ML ORAL SYRUP 9 78794 GUAIFENESIN-CODEINE Inactive FLUTICASONE PROPIONATE 50 MCG/ACT NASAL SUSPENSION 1 t o 2 sprays each nostril daily FLUTICASONE PROPIONATE 50 MCG/AC T NASAL SUSPENSION 4278902 FLUTICASONE PROPIONATE Inactive PREDNISONE 20 MG ORAL TABLET 3 tab PO qd x 2d, 2 tab P O qd x 2d, 1 tab PO qd x 2d, 1/2 tab PO qd x 2d PREDNISONE 20 MG ORAL TAB LET 866421 PREDNISONE Inactive LEVOFLOXACIN 500 MG ORAL TABLET 1 tab PO daily x 10 days LEVOFLOXACIN 500 MG ORAL TABLET 977794 LEVOFLOXACIN Inactive CYCLOBENZAPRINE HCL 10 MG ORAL TABLET 1 tablet by mouth BID prn had pain CYCLOBENZAPRINE HCL 10 MG ORAL TABLET 506119 CYCLOBENZAPRINE HCL Inactive ZOCOR 40 MG ORAL TABLET 1 tab by mouth daily 4 ZOCOR 40 MG ORAL TABLET 103201 SIMVASTATIN Inactive TUSSIONEX PENNKINETIC ER 10-8 MG/5ML [...] FLUTICASONE PROPIO EFE 50 MCG/ACT NASAL SUSPENSION 2056970 FLUTICASONE PROPIONATE Inactive TUSSIONEX PENNKINETIC ER 10-8 [...] three days PREDNISONE 20 MG ORAL TABLET 030531 PREDNIS ONE Inactive PROAIR HFA 108 (90 BASE) MCG/ACT INHALATION AEROSOL SO LUTION 2 puffs four times a day as needed PROAIR HFA 108 (90 B ASE) MCG/ACT INHALATION AEROSOL SOLUTION ALBUTEROL SULFATE Inactive ZITHROMAX Z-REYNA 250 MG ORAL TABLET 2 today, then 1 daily for 4 d ays ZITHROMAX Z-REYNA 250 MG ORAL TABLET 276845 AZITHROMYCIN Inactive CEFDINIR 300 MG ORAL CAPSULE by mouth twice a day 2010 CEFDINIR 300 MG ORAL CAPSULE 123416 CEFDINIR Inactive CEFDINIR 300 MG ORAL CAPSULE [...] 2-5 03/07/07 ZITHROMAX 250 MG ORAL TABLET 290642 AZITHROMYCIN [place] ctive CEFDINIR 300 MG ORAL CAPSULE by mouth twice a day 2011 CEFDINIR 300 MG ORAL CAPSULE 20020704 CEFDINIR Inactive PREDNISONE 20 MG ORAL TABLET 2 tabs daily for 3 days, 1 tab daily for 3 days, 1/2 tab daily for 2 days PREDNISONE 20 MG ORAL T ABLET 971691 PREDNISONE Inactive AVELOX 400 MG ORAL TABLET 1 tab by mouth daily AVELOX 400 MG ORAL TABLET 242410 MOXIFLOXACIN HCL Inactive AVELOX 400 MG ORAL TABLET 1 tab by mouth daily AVELOX 400 MG ORAL TABLET 020743 MOXIFLOXACIN HCL Inactive PREDNISONE 20 MG ORAL TABLET Take 3 tabs daily for 3 d ays, 2 tabs daily for 3 days, 1 tab daily for 3 days, 1/2 tab daily for 3 days 11/07 PREDNISONE 20 MG ORAL TABLET 915801 PREDNISONE Inactive LEVAQUIN 500 MG ORAL TABLET take one po QD LEVAQUIN 500 MG ORAL TABLET 965718 LEVOFLOXACIN Inactive AZITHROMYCIN 250 MG ORAL TABLET 2 po qd x 1 day, then 1 po q d x 4 days AZITHROMYCIN 250 MG ORAL TABLET 667837 AZITHROMY GIOVANNI Inactive MEDROL 4 MG ORAL TABLET THERAPY PACK 6 tabs on day 1, 5 tabs on day 2, 4 tabs on day 3, 3 tabs on day 4, 2 tabs on day 5, 1 tab on day 6 2013 MEDROL 4 MG ORAL TABLET THERAPY PACK 417112 METHYLPREDNISOLONE [place] ctive CHERATUSSIN AC 100-10 MG/5ML ORAL SYRUP 5ml po q6hr PRN Cough 20 13/04/14 CHERATUSSIN AC 100-10 MG/5ML ORAL SYRUP 240771 GUAIFENE SIN-CODEINE Inactive TRIAMCINOLONE ACETONIDE 0.1 % EXTERNAL CREAM apply three roger es daily prn rash TRIAMCINOLONE ACETONIDE 0.1 % EXTERNAL CREAM 101 4314 TRIAMCINOLONE ACETONIDE Inactive AZITHROMYCIN 250 MG ORAL TABLET 2 po qd x 1 day, then 1 po q d x 4 days AZITHROMYCIN 250 MG ORAL TABLET 626059 AZITHROMY GIOVANNI Inactive MEDROL 4 MG ORAL TABLET THERAPY PACK 6 pills x 1 day, then 5 pills x 1 day then 4 pills x 1 day, then 3 pills x 1 day, then 2 pills x 1 day, then 1 pill x 1 day, then stop MEDROL 4 MG ORAL TABLET THERAPY PACK 590380 METHYLPREDNISOLONE Inactive AMOXICILLIN 500 MG ORAL CAPSULE 1 tab by mouth 3 times daily x 10 days AMOXICILLIN 500 MG ORAL CAPSULE 396849 AMOXICILL IN Inactive AMOXICILLIN 500 MG ORAL CAPSULE 1 tab by mouth 3 times daily x 10 days AMOXICILLIN 500 MG ORAL CAPSULE 715654 AMOXICILL IN Inactive ZITHROMAX 250 MG ORAL TABLET 2 po today, then 1 po q days 2-5 20 12/08/14 ZITHROMAX 250 MG ORAL TABLET 513866 AZITHROMYCIN [place] ctive AUGMENTIN 875-125 MG ORAL TABLET 1 po BID x 10 days 20 13/01/20 AUGMENTIN 875-125 MG ORAL TABLET 394675 AMOXICILLIN-POT CLAVULANATE Inactive ZITHROMAX Z-REYNA 250 MG ORAL TABLET 2 today, then 1 daily for 4 d ays ZITHROMAX Z-REYNA 250 MG ORAL TABLET 897048 AZITHROMYCIN Inactive ZITHROMAX 250 MG ORAL TABLET 2 po today, then 1 po q days 2-5 20 14/03/21 ZITHROMAX 250 MG ORAL TABLET 075544 AZITHROMYCIN [place] ctive ZITHROMAX Z-REYNA 250 MG ORAL TABLET 2 today, then 1 daily for 4 d ays ZITHROMAX Z-REYNA 250 MG ORAL TABLET 156035 AZITHROMYCIN Inactive CEFDINIR 300 MG ORAL CAPSULE 1 po BID x 10 days 06/21 CEFDINIR 300 MG ORAL CAPSULE 20020704 CEFDINIR Inactive ZITHROMAX 250 MG ORAL TABLET 2 po today, then 1 po q days 2-5 20 13/08/10 ZITHROMAX 250 MG ORAL TABLET 226976 AZITHROMYCIN [place] ctive LEVAQUIN 500 MG ORAL TABLET 1 tablet by mouth daily 13/09/24 LEVAQUIN 500 MG ORAL TABLET 19971102 LEVOFLOXACIN Inactive SINGULAIR 10 MG ORAL TABLET 1 po qday for allergies 20 14/01/12 SINGULAIR 10 MG ORAL TABLET 20010504 MONTELUKAST SODIUM Inactive AMOXICILLIN 500 MG ORAL CAPSULE 2 po BID x 10 days 201 09/29/08 AMOXICILLIN 500 MG ORAL CAPSULE 392725 AMOXICILLIN Inactive PREDNISONE 20 MG ORAL TABLET 2 tabs daily for 3 days, 1 tab daily for 3 days, 1/2 tab daily for 2 days PREDNISONE 20 MG ORAL T ABLET 269714 PREDNISONE Inactive ZITHROMAX Z-REYNA 250 MG ORAL TABLET 2 today, then 1 daily for 4 d ays ZITHROMAX Z-REYNA 250 MG ORAL TABLET 614359 AZITHROMYCIN Inactive PREDNISONE 20 MG ORAL TABLET 2 tabs daily for 3 days, 1 tab daily for 3 days, 1/2 tab daily for 2 days PREDNISONE 20 MG ORAL T ABLET 982244 PREDNISONE Inactive ZITHROMAX 250 MG ORAL TABLET 2 po today, then 1 po q days 2-5 20 14/09/04 ZITHROMAX 250 MG ORAL TABLET 424619 AZITHROMYCIN Greer ctive AMOXICILLIN 500 MG ORAL CAPSULE 1 cap by mouth three times a day AMOXICILLIN 500 MG ORAL CAPSULE 578567 AMOXICILLIN Inactive TERBINAFINE HCL 250 MG ORAL TABLET 1 qDay for nail fungus 7 TERBINAFINE HCL 250 MG ORAL TABLET 946476 TERBINAFINE HCL Inact neal AUGMENTIN 875-125 MG ORAL TABLET 1 po BID x 10 days 16/03/22 AUGMENTIN 875-125 MG ORAL TABLET 726521 AMOXICILLIN-POT CLAVULANATE Inactive PREDNISONE 20 MG ORAL TABLET 2 po qd x 5 days PREDNISONE 20 MG ORAL TABLET 975289 PREDNISONE Inactive Vital Signs Date Name Value [...] - Chem istry sodium, serum 139 mmol/L 279-557 3892/03/19 potassium, serum 3.6 mmol/L 3.5-5.2 chloride, serum 100 mmol/L 98-107 carbon dioxide, venous blood 30.3 mmol/L 21.0-32 .0 blood glucose 101 mg/dL 65-110 calcium, serum 9.4 mg/dL 8.5-10.1 urea nitrogen, blood 10 mg/dL 7-18 creatinine, serum 0.96 mg/dL 0.60-1.30 Encounters Code Encounter Date Provider Facility [id number] Level 3 Est. Patient 11:34:49 TEMP RECRUITER Perez Mora MD [facility] [place] CPT-51829 Level 4 Est. Patient 09:51:32 TEMP RECRUITER Carlton rich MD [facility] [place] CPT-16440 Level 3 Est. Patient 10:26:00 TEMP RECRUITER Elise stephenson [facility] [place] CPT-96298 Level 3 Est. Patient 13:35:41 TEMP RECRUITER Carlton rich MD [facility] [place] CPT-77575 Level 3 Est. Patient 10:03:52 TEMP RECRUITER Carlton rich MD [facility] CPT-21726 Level 3 Est. Patient 12:17:50 CDT Hugo Restrepo MD [facility] CPT-47938 Level 3 Est. Patient 13:42:38 CDT Elise stephenson [facility] [place] CPT-59581 Level 3 Est. Patient 13:23:51 CDT Diya cobian [facility] [place] CPT-25093 Level 3 Est. Patient 14:22:19 TEMP RECRUITER Diya cobian [facility] [place] CPT-92170 Level 3 Est. Patient 10:11:46 CDT Carlton rich MD [facility] CPT-96855 Level 3 Est. Patient 17:29:43 CDT Elise Are ll RETIREMENT BENEFITS SPECIALIST [facility] CPT-01741 Level 3 Est. Patient 11:58:06 CDT Elise Are ll [facility] [place] CPT-41863 Level 4 Est. Patient 14:36:51 CDT Carlton rich MD [facility] CPT-53281 Level 3 Est. Patient 18:16:00 TEMP RECRUITER Blaine Freeman [facility] CPT-90943 Level 3 Est. Patient 09:45:49 TEMP RECRUITER Carlton rich MD [facility] CPT-29774 Level 3 Est. Patient 13:19:20 CDT Carlton rich MD [facility] CPT-25338 Level 3 Est. Patient 13:06:43 CDT Ridge tam DO [facility] CPT-65844 Level 3 Est. Patient 10:03:07 CDT Perez Mora MD [facility] CPT-58107 Level 3 Est. Patient 19:50:35 TEMP RECRUITER Carlton rich MD [facility] CPT-75502 Level 4 Est. Patient 18:05:01 TEMP RECRUITER Carlton rich MD [facility] CPT-17946 Level 3 Est. Patient 10:45:55 TEMP RECRUITER Hugo Restrepo MD [facility] CPT-00910 Level 3 Est. Patient 14:12:49 CDT Griffin lincoln [facility] CPT-79942 Level 3 Est. Patient 17:37:24 CDT Carlton rich MD [facility] CPT-21166 Level 3 Est. Patient 16:51:54 CDT Carlton rich MD [facility] CPT-68213 Level 3 Est. Patient 12:18:11 CDT Hugo Restrepo MD [facility] CPT-50085 Level 3 Est. Patient 11:30:25 CDT Marcy crisostomo MD PhD [facility] CPT-18299 Level 3 Est. Patient 12:00:47 TEMP RECRUITER Carlton rich MD [facility] CPT-97528 Level 3 Est. Patient 16:31:06 TEMP RECRUITER Cralton rich MD [facility] CPT-39975 Level 3 Est. Patient 16:23:24 TEMP RECRUITER Ridge tam [facility] CPT-99356 Level 3 Est. Patient 12:34:12 CDT Carlton rich MD [facility] CPT-97222 Level 2 Est. Patient 15:43:33 CDT Robi armstrong MD [facility] CPT-47697 Level 4 Est. Patient 14:04:44 CDT Carlton rich MD [facility] CPT-72038 Level 3 Est. Patient 05:47:59 CDT Ridge tam [facility] CPT-55453 Level 3 Est. Patient 13:12:53 TEMP RECRUITER Carlton rich MD [facility] CPT-38784 Level 3 Est. Patient 14:26:53 CDT Hugo Restrepo MD [facility] Procedures Code Procedure Name Date Entry Date Standard Desc ription CPT-000 Give Appropriate Flu Vaccine 14:14:31 CDT 2 CPT-J1040 Depo Medrol 80 mg (Methyl Prednisolone A cetate) 10:42:44 CDT CPT-J1100 Decadron 8mg (Dexamethasone) 10:42:44 CDT 2 CPT-J0696 Rocephin 1gm Inj Solr 14:32:13 CDT CPT-J1020 Depo Medrol 60 mg (Methyl Prednisolone A cetate) 14:32:13 CDT CPT-J1100 Decadron 6mg (Dexamethasone) 14:32:13 CDT 2 CPT-73683 Hip bilat min 2V w AP pelvis 13:16:20 CDT 2 CPT-69905 Pelvis only 13:07:33 CDT CPT-19876 Spec Collection and Handling Fee 11:25:12 C DT CPT-57696 Fluzone Quadrivalent Intramuscular Suspe nsion 0.5 ML 14:31:55 CDT CPT-18527 Abx/Therapy Injection 13:28:47 TEMP RECRUITER CPT-J2930 Solu Medrol 125 mg (Methyl Prednisolone Sodium Succinate) 12:00:47 TEMP RECRUITER CPT-48562 Venipuncture Draw Fee 11:33:31 CDT CPT-80167 EKG Trac and Interp 11:21:09 CDT CPT-27640 Chest 2V Frontal and Lat 11:21:09 CDT 12/15 CPT-50111 Venipuncture Draw Fee 08:02:34 CDT CPT-58942 Chest 2V Frontal and Lat 05:47:59 CDT 06/05
--- OUTSIDE RECORDS SUMMARY | 2019-10-08 09:36 | XMS REPORT | Clinical Summary ---
Author Author Caitlin, Juliana Martinez Organization [employer] [facility] Address Unknown Phone Unavailable [...] unspecified cause SINUSITIS, ACUTE 461.9 Resolved Hugo Restreop MD Acute sinusitis, unspecified CALF PAIN, LEFT [...] bronchitis URI - acute 465.9 Resolved Hugo eRstrepo MD Acute upper respiratory infections of unspecified [...] x 10 days 20 16/03/22 AMOXICILLIN-POT CLAVULANATE 01021001246 Active Elise Whitmore APRN Active TERBINAFINE HCL 250 MG ORAL TABLET 1 qDay for nail fungus 7 TERBINAFINE HCL 45952641154 No Longer Active Carlton Harkins ctive TUSSIONEX PENNKINETIC ER 10-8 MG/5ML ORAL SUSPENSION E XTENDED RELEASE 5ml po q12hr PRN Cough HYDROCOD POLST-CHLORPHEN POLST 10497087353 Active Carlton Hu MD Active PREDNISONE 20 MG ORAL TABLET 1 tab twice daily for 3 d ay, then one daily for three days PREDNISONE 02172953014 Active Carlton Hu MD Active AMOXICILLIN 500 MG ORAL CAPSULE 1 cap by mouth three times a day AMOXICILLIN 89162770663 No Longer Active Carlton Hu MD Active ELMIRON 100 MG ORAL CAPSULE 2 tablets in the am and 1 tablet at hs PENTOSAN POLYSULFATE SODIUM 69765444494 No Longer Active Robert Hu MD Active MUCINEX D 60-600 MG ORAL TABLET EXTENDED RELEASE 12 HOUR 1 t ab po q am PSEUDOEPHEDRINE-GUAIFENESIN 54393773947 No Longer Act nael Carlton Hu MD Active MUCINEX DM MAXIMUM STRENGTH 60-1200 MG ORAL TABLET EXT ENDED RELEASE 12 HOUR 1 tab po q am DEXTROMETHORPHAN-GUAIFENESIN 26313493476 No Longer Active Carlton Hu MD Active TUSSIONEX PENNKINETIC ER 10-8 MG/5ML ORAL SUSPENSION E XTENDED RELEASE 5ml po q12hr PRN Cough HYDROCOD POLST-CHLORPHEN POLST 5 3631703156 No Longer Active Carlton uH MD Active POTASSIUM CHLORIDE ER 20 MEQ ORAL TABLET EXTENDED RELE ASE Take 1 by mouth 4 times daily for 7 days POTASSIUM CHLORIDE 14849724823 No Longer Active Carlton Hu MD Active ZITHROMAX 250 MG ORAL TABLET 2 po today, then 1 po q days 2-5 20 14/09/04 AZITHROMYCIN 99695771858 No Longer Active Elise Whitmore APRN Active TUSSIONEX PENNKINETIC ER 10-8 MG/5ML ORAL SUSPENSION E XTENDED RELEASE 5 ml twice a day as needed for cough HYDROCOD POLST-CHLORPH EN POLST 54991421592 No Longer Active Elise Whitmore APRN Active MONTELUKAST SODIUM 10 MG ORAL TABLET 1 po daily for Allergy MONTELUKAST SODIUM 74320023301 Active Carlton Hu MD Ac tive TUSSIONEX PENNKINETIC ER 10-8 MG/5ML ORAL SUSPENSION E XTENDED RELEASE 5ml po q12hr PRN Cough HYDROCOD POLST-CHLORPHEN POLST 5 2748657435 No Longer Active Hugo Restrepo MD Active GABAPENTIN 100 MG ORAL CAPSULE 1 po BID for fibromyalgia GABAPENTIN 41737793976 Active Carlton Hu MD Active LYRICA 100 MG ORAL CAPSULE Take 1 tab po BID for fibromyalgia 20 11/08/21 PREGABALIN 32474280070 No Longer Active Elise Whitmore APRN Active PROAIR HFA 108 (90 Base) MCG/ACT INHALATION AEROSOL SO LUTION 2 puffs four times a day as needed ALBUTEROL SULFATE 98403073969 Active Lyndsay Whitmore APRN Active PREDNISONE 20 MG ORAL TABLET 2 tabs daily for 3 days, 1 tab daily for 3 days, 1/2 tab daily for 2 days PREDNISONE 45544087406 No Longer Active Jillina Gege KHAN Active TUSSIONEX PENNKINETIC ER 10-8 MG/5ML ORAL SUSPENSION E XTENDED RELEASE 5 mL PO q 12 hrs PRN cough HYDROCOD POLST-CHLORPHEN POLST 455700 22569 No Longer Active Jillina Frazell BUILDING DRAFTER Active FLUTICASONE PROPIONATE 50 MCG/ACT NASAL SUSPENSION 2 s prays each nostril daily until bottle is empty FLUTICASONE PROPIONATE 829898569 99 No Longer Active Jillina Frazell BUILDING DRAFTER Active ASMANEX 60 METERED DOSES 220 MCG/INH INHALATION AEROSO L POWDER BREATH ACTIVATED 1 puff bid with rinse after MOMETASONE FUROATE 8415004 4102 No Longer Active Jillina Frazell BUILDING DRAFTER Active ZITHROMAX Z-REYNA 250 MG ORAL TABLET 2 today, then 1 daily for 4 d ays AZITHROMYCIN 18945228076 No Longer Active Elise Whitmore APRN Active TUSSIONEX PENNKINETIC ER 10-8 MG/5ML ORAL SUSPENSION E XTENDED RELEASE 5ml po q12hr PRN Cough HYDROCOD POLST-CHLORPHEN POLST 5 2265667765 No Longer Active Elise Whitmore APRN Active PREDNISONE 20 MG ORAL TABLET 2 tabs daily for 3 days, 1 tab daily for 3 days, 1/2 tab daily for 2 days PREDNISONE 01710078665 No Longer Active Diya De Guzman APRN Active AMOXICILLIN 500 MG ORAL CAPSULE 2 po BID x 10 days 201 09/29/08 AMOXICILLIN 36055312758 No Longer Active Jillina Gege RICEN Act nael SINGULAIR 10 MG ORAL TABLET 1 po qday for allergies 20 14/01/12 MONTELUKAST SODIUM 29380280988 No Longer Active Carlton Hu MD Active LEVAQUIN 500 MG ORAL TABLET 1 tablet by mouth daily 20 13/09/24 LEVOFLOXACIN 85619318601 No Longer Active Carlton Hu MD Acti ve FLUTICASONE PROPIONATE 50 MCG/ACT NASAL SUSPENSION 2 s prays each nostril daily for 2 weeks, then 1 spray each nostril daily. FLUTICASONE PROPIONATE 74850766413 Active Elise Whitmore APRN Active ZITHROMAX 250 MG ORAL TABLET 2 po today, then 1 po q days 2-5 20 13/08/10 AZITHROMYCIN 69305942399 No Longer Active Elise Whitmore APRN Active XANAX 0.5 MG ORAL TABLET one tablet by mouth daily prn anxiety 2015 ALPRAZOLAM 88116181789 Active Carlton Hu MD Active CYMBALTA 30 MG ORAL CAPSULE DELAYED RELEASE PARTICLES 1 cap by mouth daily for depression DULOXETINE HCL 02276514609 Active Carlton beltrán MD Active CEFDINIR 300 MG ORAL CAPSULE 1 po BID x 10 days CEFDINIR 97497508371 No Longer Active Carlton Hu MD Active ZOCOR 40 MG ORAL TABLET 1 tab by mouth daily SI MVASTATIN 90361974266 No Longer Active Carlton Hu MD Active CYCLOBENZAPRINE HCL 10 MG ORAL TABLET 1 tablet by mouth BID prn had pain CYCLOBENZAPRINE HCL 25622233601 No Longer Active Jayden Hu MD Active LEVOFLOXACIN 500 MG ORAL TABLET 1 tab PO daily x 10 days LEVOFLOXACIN 33962064760 No Longer Active Carlton Hu MD Acti ve PREDNISONE 20 MG ORAL TABLET 3 tab PO qd x 2d, 2 tab P O qd x 2d, 1 tab PO qd x 2d, 1/2 tab PO qd x 2d PREDNISONE 29879939836 No Lo nger Active Carlton Hu MD Active FLUTICASONE PROPIONATE 50 MCG/ACT NASAL SUSPENSION 1 t o 2 sprays each nostril daily FLUTICASONE PROPIONATE 29823294270 No Longer Ac tive Blaine HERNANDEZ Active CHERATUSSIN AC 100-10 MG/5ML ORAL SYRUP 1 tsp by mouth every 4 hours as needed for cough GUAIFENESIN-CODEINE 08258976491 No Longe r Active Blaine HERNANDEZ Active PROMETHAZINE-CODEINE 6.25-10 MG/5ML ORAL SYRUP 1 tsp b y mouth every 6 hours if needed for cough PROMETHAZINE-CODEINE 48720966045 No Longer Active Blaine HERNANDEZ Active CHERATUSSIN AC 100-10 MG/5ML ORAL SYRUP 1 tsp by mouth every 4 hours as needed for cough GUAIFENESIN-CODEINE 90981128006 No Longe r Active Blaine HERNANDEZ Active ZITHROMAX Z-REYNA 250 MG ORAL TABLET 2 today, then 1 daily for 4 d ays AZITHROMYCIN 17473574525 No Longer Active Columba Parrish Act nael ZITHROMAX 250 MG ORAL TABLET 2 po today, then 1 po q days 2-5 20 14/03/21 AZITHROMYCIN 73729481488 No Longer Active Carlton Hu MD Active ZITHROMAX Z-REYNA 250 MG ORAL TABLET 2 today, then 1 daily for 4 d ays AZITHROMYCIN 47247511410 No Longer Active Columba Parrish Act nael AUGMENTIN 875-125 MG ORAL TABLET 1 po BID x 10 days 13/01/20 AMOXICILLIN-POT CLAVULANATE 43952020529 No Longer Active Venuriley Daphnebrayan RICEN Active ZITHROMAX 250 MG ORAL TABLET 2 po today, then 1 po q days 2-5 12/08/14 AZITHROMYCIN 32658535975 No Longer Active Carlton Hu MD Active TRAMADOL HCL 50 MG ORAL TABLET 1 po tid with ES Tylenol TRAMADOL HCL 36742650534 Active Carlton Hu MD Active PREMARIN 0.625 MG ORAL TABLET TAKE 1 TAB BY MOUTH DAILY ESTROGENS CONJUGATED 42324663866 No Longer Active Ridge Bess DO A ctive CYMBALTA 30 MG ORAL CAPSULE DELAYED RELEASE PARTICLES 1 cap by mouth daily DULOXETINE HCL 23399170272 No Longer Active Ridge tam DO Active AMOXICILLIN 500 MG ORAL CAPSULE 1 tab by mouth 3 times daily x 10 days AMOXICILLIN 50777788296 No Longer Active Carlton bustamante MD Active AMOXICILLIN 500 MG ORAL CAPSULE 1 tab by mouth 3 times daily x 10 days AMOXICILLIN 16478234354 No Longer Active Carlton bustamante MD Active PROMETHAZINE-CODEINE 6.25-10 MG/5ML ORAL SYRUP 1 tsp b y mouth every 8 hours prn cough PROMETHAZINE-CODEINE 01323336895 No Longer Acti ve Carlton Hu MD Active MEDROL 4 MG ORAL TABLET THERAPY PACK 6 pills x 1 day, then 5 pills x 1 day then 4 pills x 1 day, then 3 pills x 1 day, then 2 pills x 1 day, then 1 pill x 1 day, then stop METHYLPREDNISOLONE 96470799303 No Long er Active Perez Mora MD Active AZITHROMYCIN 250 MG ORAL TABLET 2 po qd x 1 day, then 1 po q d x 4 days AZITHROMYCIN 93720738054 No Longer Active Perez Ambriz MD Active SYMBICORT 160-4.5 MCG/ACT INHALATION AEROSOL 2 puffs bid wit h rinse after BUDESONIDE-FORMOTEROL FUMARATE 54390028182 N o Longer Active Perez Mora MD Active LYRICA 75 MG ORAL CAPSULE TAKE 1 CAPSULE BY MOUTH TWICE DAILY PREGABALIN 44080547431 No Longer Active Carlton Hu MD Acti ve TOPAMAX 25 MG ORAL TABLET 1 qHS x 1 week, then 1 BID x 1 week, then 1 qAM and 2 qHS x 1 week, then 2 BID (migraine prevention) T OPIRAMATE 79045883189 No Longer Active Jerica FUENTES Active TOPAMAX 50 MG ORAL TABLET take 1 tab po BID for migraines. 07/02 TOPIRAMATE 83606863372 No Longer Active Jerica FUENTES Active TOPAMAX 100 MG ORAL TABLET Take 1 tablet po bid TO PIRAMATE 34253970231 Active Carlton Hu MD Active TRIAMCINOLONE ACETONIDE 0.1 % EXTERNAL CREAM apply three roger es daily prn rash TRIAMCINOLONE ACETONIDE 31454473304 No Longer Active Carlton Hu MD Active PAXIL 40 MG ORAL TABLET take 1 tab po qday for depression 0 PAROXETINE HCL 19816975055 Active Carlton Hu MD Active CHERATUSSIN AC 100-10 MG/5ML ORAL SYRUP 5ml po q6hr PRN Cough 20 13/04/14 GUAIFENESIN-CODEINE 62727566204 No Longer Active Carlton Hu MD Active MEDROL 4 MG ORAL TABLET THERAPY PACK 6 tabs on day 1, 5 tabs on day 2, 4 tabs on day 3, 3 tabs on day 4, 2 tabs on day 5, 1 tab on day 6 2013 METHYLPREDNISOLONE 23251720879 No Longer Active Perez Mora MD Active AZITHROMYCIN 250 MG ORAL TABLET 2 po qd x 1 day, then 1 po q d x 4 days AZITHROMYCIN 92276826602 No Longer Active Perez Ambriz MD Active PROPRANOLOL HCL 60 MG ORAL TABLET 1 PO Q D PROPRANOLOL HCL 63465351002 No Longer Active Perez Mora MD Activ e CHERATUSSIN AC 100-10 MG/5ML ORAL SYRUP take one tsp po Q 6h ours prn cough GUAIFENESIN-CODEINE 24951902657 No Longer Active Zia Mora MD Active AUGMENTIN 875-125 MG ORAL TABLET 1 tab by mouth twice daily with food AMOXICILLIN-POT CLAVULANATE 80787908679 No Longer Act nael Perez Mora MD Active CHERATUSSIN AC 100-10 MG/5ML ORAL SYRUP 1 tsp by mouth every 4 hours as needed for cough GUAIFENESIN-CODEINE 68750064966 No Longe r Active Hugo Restrepo MD Active ACETAMINOPHEN-CODEINE #3 300-30 MG ORAL TABLET 1 PO Q 4-6 HRS MA N PAIN ACETAMINOPHEN-CODEINE 75313739840 No Longer Active Hugo Restrepo MD Active LEVAQUIN 500 MG ORAL TABLET take one po QD LEVO FLOXACIN 33091321758 No Longer Active Griffin HERNANDEZ Active PREDNISONE 20 MG ORAL TABLET Take 3 tabs daily for 3 d ays, 2 tabs daily for 3 days, 1 tab daily for 3 days, 1/2 tab daily for 3 days 11/07 PREDNISONE 38179519962 No Longer Active Carlton Hu MD Acti ve AVELOX 400 MG ORAL TABLET 1 tab by mouth daily MOXIFLOXACIN HCL 50175769423 No Longer Active Carlton Hu MD Active CHERATUSSIN AC 100-10 MG/5ML ORAL SYRUP 1 tsp by mouth every 4 hours as needed for cough GUAIFENESIN-CODEINE 66883925728 No Longe r Active Hugo Restrepo MD Active AVELOX 400 MG ORAL TABLET 1 tab by mouth daily MOXIFLOXACIN HCL 50354005222 No Longer Active Marcy De La Rosa MD PhD Active TERBINAFINE HCL 250 MG ORAL TABLET 1 qDay T ERBINAFINE HCL 18321385143 No Longer Active Marcy De La Rosa MD PhD Active CHERATUSSIN AC 100-10 MG/5ML ORAL SYRUP 1 tsp by mouth every 4 hours as needed for cough GUAIFENESIN-CODEINE 12310967437 No Longe r Active Marcy De La Rosa MD PhD Active AVELOX 400 MG ORAL TABLET 1 tab by mouth daily MOXIFLOXACIN HCL 91752026549 No Longer Active Marcy De La Rosa MD PhD Active HYDROCODONE-ACETAMINOPHEN 5-325 MG ORAL TABLET 1 po q 6hr PRN co ugh HYDROCODONE-ACETAMINOPHEN 66000196812 No Longer Active Marcy De La Rosa MD PhD Active PREDNISONE 20 MG ORAL TABLET 2 tabs daily for 3 days, 1 tab daily for 3 days, 1/2 tab daily for 2 days PREDNISONE 12719350297 No Longer Active Carlton Hu MD Active CEFDINIR 300 MG ORAL CAPSULE by mouth twice a day 2011 CEFDINIR 42751308355 No Longer Active Carlton Hu MD Acti ve HYDROCHLOROTHIAZIDE 25 MG ORAL TABLET 1 TAB PO DAILY HYDROCHLOROTHIAZIDE 17643995153 Active Carlton Hu MD A ctive ACETAMINOPHEN-CODEINE #3 300-30 MG ORAL TABLET 1 tablet po q 4-6 hrs prn pain ACETAMINOPHEN-CODEINE 13360644426 No Longer Active Ridge Bess DO Active ZITHROMAX 250 MG ORAL TABLET 2 po today, then 1 po q days 2-5 20 03/07/07 AZITHROMYCIN 30373793541 No Longer Active Carlton Hu MD Active CHERATUSSIN AC 100-10 MG/5ML ORAL SYRUP take 1 tsp po q4-6 h ours prn cough GUAIFENESIN-CODEINE 61762544825 No Longer Active Jayden Hu MD Active ACETAMINOPHEN-CODEINE #3 300-30 MG ORAL TABLET 1 PO Q 4-6 HR PRN PAIN ACETAMINOPHEN-CODEINE 55292747391 No Longer Active Arnol Hu MD Active LORTAB 7.5-500 MG/15ML ORAL ELIXIR 7.5 ml po q 4 hour prn cough HYDROCODONE-ACETAMINOPHEN 47185213514 No Longer Active Carlton Hu MD Active PREDNISONE 20 MG ORAL TABLET 1 po bid 3 days, then 1 po q day 3 days PREDNISONE 74181685758 No Longer Active Carlton Hu MD Active CEFDINIR 300 MG ORAL CAPSULE by mouth twice a day 2011 CEFDINIR 36048604788 No Longer Active Carlton Hu MD Acti ve CEFDINIR 300 MG ORAL CAPSULE by mouth twice a day 2010 CEFDINIR 18550669953 No Longer Active Carlton Hu MD Acti ve CEFDINIR 300 MG ORAL CAPSULE by mouth twice a day 2010 CEFDINIR 70174313341 No Longer Active Carlton Hu MD Acti ve TESSALON PERLES 100 MG ORAL CAPSULE 1 tablet by mouth 3 times daily as needed for cough BENZONATATE 01282565940 No Longer Active Carlton Hu MD Active CEFDINIR 300 MG ORAL CAPSULE by mouth twice a day 2010 CEFDINIR 36172142364 No Longer Active Carlton Hu MD Acti ve ZITHROMAX Z-REYNA 250 MG ORAL TABLET 2 today, then 1 daily for 4 d ays AZITHROMYCIN 49525398149 No Longer Active Hugo Restrepo MD Active TESSALON PERLES 100 MG ORAL CAPSULE 1 tablet by mouth 3 times daily as needed for cough TESSALON PERLES 100 MG ORAL CAPSULE 86315 7 BENZONATATE Inactive PREDNISONE 20 MG ORAL TABLET 1 po bid 3 days, then 1 po q day 3 days PREDNISONE 20 MG ORAL TABLET 662017 PREDNISONE Greer ctive LORTAB 7.5-500 MG/15ML ORAL [...] cough CHERATUSSIN AC 100-10 MG/5ML ORAL SYRUP 666066 GUAIFENESIN-CODEINE Inactive ACETAMINOPHEN-CODEINE #3 300-30 MG ORAL TABLET 1 tablet po q 4-6 hrs prn pain ACETAMINOPHEN-CODEINE #3 300-30 MG ORAL TABLET ACETAMINOPHEN-CODEINE Inactive HYDROCODONE-ACETAMINOPHEN 5-325 MG ORAL TABLET 1 po q 6hr PRN co ugh HYDROCODONE-ACETAMINOPHEN 5-325 MG ORAL TABLET 998898 HYDROCODONE-ACETAMINOPHEN Inactive AVELOX 400 MG ORAL TABLET 1 tab by mouth daily AVELOX 400 MG ORAL TABLET 214582 MOXIFLOXACIN HCL Inactive CHERATUSSIN AC 100-10 MG/5ML ORAL SYRUP 1 tsp by mouth every 4 hours as needed for cough CHERATUSSIN AC 100-10 MG/5ML ORAL SYRUP 9 62492 GUAIFENESIN-CODEINE Inactive TERBINAFINE HCL 250 MG ORAL TABLET 1 qDay 07/08 TERBINAFINE HCL 250 MG ORAL TABLET 128630 TERBINAFINE HCL Inactive CHERATUSSIN AC 100-10 MG/5ML ORAL SYRUP 1 tsp by mouth every 4 hours as needed for cough CHERATUSSIN AC 100-10 MG/5ML ORAL SYRUP 9 93164 GUAIFENESIN-CODEINE Inactive ACETAMINOPHEN-CODEINE #3 300-30 MG ORAL TABLET 1 PO Q 4-6 HRS MA N PAIN ACETAMINOPHEN-CODEINE #3 300-30 MG ORAL TABLET ACETAMINOPHEN-CODEINE Inactive CHERATUSSIN AC 100-10 MG/5ML ORAL SYRUP 1 tsp by mouth every 4 hours as needed for cough CHERATUSSIN AC 100-10 MG/5ML ORAL SYRUP 9 81215 GUAIFENESIN-CODEINE Inactive AUGMENTIN 875-125 MG ORAL TABLET 1 tab by mouth twice daily with food AUGMENTIN 875-125 MG ORAL TABLET 251786 AMOXICIL MADELINE-POT CLAVULANATE Inactive CHERATUSSIN AC 100-10 MG/5ML ORAL SYRUP take one tsp po Q 6h ours prn cough CHERATUSSIN AC 100-10 MG/5ML ORAL SYRUP 356682 GUAIFENESIN-CODEINE Inactive PROPRANOLOL HCL 60 MG ORAL TABLET 1 PO Q D PROPRANOLOL HCL 60 MG ORAL TABLET 544401 PROPRANOLOL HCL Inactive TOPAMAX 50 MG ORAL TABLET take 1 tab po BID for migraines. 07/02 TOPAMAX 50 MG ORAL TABLET 106770 TOPIRAMATE Inacti ve TOPAMAX 25 MG ORAL TABLET 1 qHS x 1 week, then 1 BID x 1 week, then 1 qAM and 2 qHS x 1 week, then 2 BID (migraine prevention) TOPAMAX 25 MG ORAL TABLET 954623 TOPIRAMATE Inactive LYRICA 75 MG ORAL CAPSULE TAKE 1 CAPSULE BY MOUTH TWICE DAILY LYRICA 75 MG ORAL CAPSULE PREGABALIN Inactive SYMBICORT 160-4.5 MCG/ACT INHALATION AEROSOL 2 puffs bid wit h rinse after SYMBICORT 160-4.5 MCG/ACT INHALATION AEROSOL BUDESONIDE- FORMOTEROL FUMARATE Inactive PROMETHAZINE-CODEINE 6.25-10 MG/5ML ORAL SYRUP 1 tsp b y mouth every 8 hours prn cough PROMETHAZINE-CODEINE 6.25-10 MG/ 5ML ORAL SYRUP 489548 PROMETHAZINE-CODEINE Inactive CYMBALTA 30 MG ORAL CAPSULE DELAYED RELEASE PARTICLES 1 cap by mouth daily CYMBALTA 30 MG ORAL CAPSULE DELAYED RELE ASE PARTICLES 428350 DULOXETINE HCL Inactive PREMARIN 0.625 MG ORAL TABLET TAKE 1 TAB BY MOUTH DAILY PREMARIN 0.625 MG ORAL TABLET ESTROGENS CONJUGATED Inactive CHERATUSSIN AC 100-10 MG/5ML ORAL SYRUP 1 tsp by mouth every 4 hours as needed for cough CHERATUSSIN AC 100-10 MG/5ML ORAL SYRUP 9 22586 GUAIFENESIN-CODEINE Inactive PROMETHAZINE-CODEINE 6.25-10 MG/5ML ORAL SYRUP 1 tsp b y mouth every 6 hours if needed for cough PROMETHAZINE-CODEINE 6.25-10 MG/5ML ORAL SYRUP 062515 PROMETHAZINE-CODEINE Inactive CHERATUSSIN AC 100-10 MG/5ML ORAL SYRUP 1 tsp by mouth every 4 hours as needed for cough CHERATUSSIN AC 100-10 MG/5ML ORAL SYRUP 9 44071 GUAIFENESIN-CODEINE Inactive FLUTICASONE PROPIONATE 50 MCG/ACT NASAL SUSPENSION 1 t o 2 sprays each nostril daily FLUTICASONE PROPIONATE 50 MCG/AC T NASAL SUSPENSION 2460498 FLUTICASONE PROPIONATE Inactive PREDNISONE 20 MG ORAL TABLET 3 tab PO qd x 2d, 2 tab P O qd x 2d, 1 tab PO qd x 2d, 1/2 tab PO qd x 2d PREDNISONE 20 MG ORAL TAB LET 575388 PREDNISONE Inactive LEVOFLOXACIN 500 MG ORAL TABLET 1 tab PO daily x 10 days LEVOFLOXACIN 500 MG ORAL TABLET 485261 LEVOFLOXACIN Inactive CYCLOBENZAPRINE HCL 10 MG ORAL TABLET 1 tablet by mouth BID prn had pain CYCLOBENZAPRINE HCL 10 MG ORAL TABLET 687404 CYCLOBENZAPRINE HCL Inactive ZOCOR 40 MG ORAL TABLET 1 tab by mouth daily 4 ZOCOR 40 MG ORAL TABLET 714115 SIMVASTATIN Inactive TUSSIONEX PENNKINETIC ER 10-8 MG/5ML [...] FLUTICASONE PROPIO EFE 50 MCG/ACT NASAL SUSPENSION 1784837 FLUTICASONE PROPIONATE Inactive TUSSIONEX PENNKINETIC ER 10-8 [...] ays ZITHROMAX Z-REYNA 250 MG ORAL TABLET 501446 AZITHROMYCIN Inactive CEFDINIR 300 MG ORAL CAPSULE by mouth twice a day 2010 CEFDINIR 300 MG ORAL CAPSULE 605486 CEFDINIR Inactive CEFDINIR 300 MG ORAL CAPSULE by mouth twice a day 2010 CEFDINIR 300 MG ORAL CAPSULE 756654 CEFDINIR Inactive CEFDINIR 300 MG ORAL CAPSULE by mouth twice a day 2010 CEFDINIR 300 MG ORAL CAPSULE 107369 CEFDINIR Inactive CEFDINIR 300 MG ORAL CAPSULE by mouth twice a day 2011 CEFDINIR 300 MG ORAL CAPSULE 642422 CEFDINIR Inactive ZITHROMAX 250 MG ORAL TABLET 2 po today, then 1 po q days 2-5 20 03/07/07 ZITHROMAX 250 MG ORAL TABLET 516196 AZITHROMYCIN [place] ctive CEFDINIR 300 MG ORAL CAPSULE by mouth twice a day 2011 CEFDINIR 300 MG ORAL CAPSULE 778510 CEFDINIR Inactive PREDNISONE 20 MG ORAL TABLET 2 tabs daily for 3 days, 1 tab daily for 3 days, 1/2 tab daily for 2 days PREDNISONE 20 MG ORAL T ABLET 410708 PREDNISONE Inactive AVELOX 400 MG ORAL TABLET 1 tab by mouth daily AVELOX 400 MG ORAL TABLET 068698 MOXIFLOXACIN HCL Inactive AVELOX 400 MG ORAL TABLET 1 tab by mouth daily AVELOX 400 MG ORAL TABLET 910588 MOXIFLOXACIN HCL Inactive PREDNISONE 20 MG ORAL TABLET Take 3 tabs daily for 3 d ays, 2 tabs daily for 3 days, 1 tab daily for 3 days, 1/2 tab daily for 3 days 11/07 PREDNISONE 20 MG ORAL TABLET 434438 PREDNISONE Inactive LEVAQUIN 500 MG ORAL TABLET take one po QD LEVAQUIN 500 MG ORAL TABLET 749635 LEVOFLOXACIN Inactive AZITHROMYCIN 250 MG ORAL TABLET 2 po qd x 1 day, then 1 po q d x 4 days AZITHROMYCIN 250 MG ORAL TABLET 847700 AZITHROMY GIOVANNI Inactive MEDROL 4 MG ORAL TABLET THERAPY PACK 6 tabs on day 1, 5 tabs on day 2, 4 tabs on day 3, 3 tabs on day 4, 2 tabs on day 5, 1 tab on day 6 2013 MEDROL 4 MG ORAL TABLET THERAPY PACK 595714 METHYLPREDNISOLONE [place]er ctive CHERATUSSIN AC 100-10 MG/5ML ORAL SYRUP 5ml po q6hr PRN Cough 20 13/04/14 CHERATUSSIN AC 100-10 MG/5ML ORAL SYRUP 033933 GUAIFENE SIN-CODEINE Inactive TRIAMCINOLONE ACETONIDE 0.1 % EXTERNAL CREAM apply three roger es daily prn rash TRIAMCINOLONE ACETONIDE 0.1 % EXTERNAL CREAM 101 4314 TRIAMCINOLONE ACETONIDE Inactive AZITHROMYCIN 250 MG ORAL TABLET 2 po qd x 1 day, then 1 po q d x 4 days AZITHROMYCIN 250 MG ORAL TABLET 287235 AZITHROMY GIOVANNI Inactive MEDROL 4 MG ORAL TABLET THERAPY PACK 6 pills x 1 day, then 5 pills x 1 day then 4 pills x 1 day, then 3 pills x 1 day, then 2 pills x 1 day, then 1 pill x 1 day, then stop MEDROL 4 MG ORAL TABLET THERAPY PACK 988455 METHYLPREDNISOLONE Inactive AMOXICILLIN 500 MG ORAL CAPSULE 1 tab by mouth 3 times daily x 10 days AMOXICILLIN 500 MG ORAL CAPSULE 376651 AMOXICILL IN Inactive AMOXICILLIN 500 MG ORAL CAPSULE 1 tab by mouth 3 times daily x 10 days AMOXICILLIN 500 MG ORAL CAPSULE 216180 AMOXICILL IN Inactive ZITHROMAX 250 MG ORAL TABLET 2 po today, then 1 po q days 2-5 20 12/08/14 ZITHROMAX 250 MG ORAL TABLET 260420 AZITHROMYCIN [place] ctive AUGMENTIN 875-125 MG ORAL TABLET 1 po BID x 10 days 20 13/01/20 AUGMENTIN 875-125 MG ORAL TABLET 716064 AMOXICILLIN-POT CLAVULANATE Inactive ZITHROMAX Z-REYNA 250 MG ORAL TABLET 2 today, then 1 daily for 4 d ays ZITHROMAX Z-REYNA 250 MG ORAL TABLET 660052 AZITHROMYCIN Inactive ZITHROMAX 250 MG ORAL TABLET 2 po today, then 1 po q days 2-5 20 14/03/21 ZITHROMAX 250 MG ORAL TABLET 961368 AZITHROMYCIN [place] ctive ZITHROMAX Z-REYNA 250 MG ORAL TABLET 2 today, then 1 daily for 4 d ays ZITHROMAX Z-REYNA 250 MG ORAL TABLET 846198 AZITHROMYCIN Inactive CEFDINIR 300 MG ORAL CAPSULE 1 po BID x 10 days 06/21 CEFDINIR 300 MG ORAL CAPSULE 20020704 CEFDINIR Inactive ZITHROMAX 250 MG ORAL TABLET 2 po today, then 1 po q days 2-5 20 13/08/10 ZITHROMAX 250 MG ORAL TABLET 357190 AZITHROMYCIN Greer ctive LEVAQUIN 500 MG ORAL TABLET 1 tablet by mouth daily 20 13/09/24 LEVAQUIN 500 MG ORAL TABLET 19971102 LEVOFLOXACIN Inactive SINGULAIR 10 MG ORAL TABLET 1 po qday for allergies 20 14/01/12 SINGULAIR 10 MG ORAL TABLET 20010504 MONTELUKAST SODIUM Inactive AMOXICILLIN 500 MG ORAL CAPSULE 2 po BID x 10 days 201 09/29/08 AMOXICILLIN 500 MG ORAL CAPSULE 082822 AMOXICILLIN Inactive PREDNISONE 20 MG ORAL TABLET 2 tabs daily for 3 days, 1 tab daily for 3 days, 1/2 tab daily for 2 days PREDNISONE 20 MG ORAL T ABLET 730964 PREDNISONE Inactive ZITHROMAX Z-REYNA 250 MG ORAL TABLET 2 today, then 1 daily for 4 d ays ZITHROMAX Z-REYNA 250 MG ORAL TABLET 795639 AZITHROMYCIN Inactive PREDNISONE 20 MG ORAL TABLET 2 tabs daily for 3 days, 1 tab daily for 3 days, 1/2 tab daily for 2 days PREDNISONE 20 MG ORAL T ABLET 354305 PREDNISONE Inactive ZITHROMAX 250 MG ORAL TABLET 2 po today, then 1 po q days 2-5 20 14/09/04 ZITHROMAX 250 MG ORAL TABLET 602740 AZITHROMYCIN Greer ctive AMOXICILLIN 500 MG ORAL CAPSULE 1 cap by mouth three times a day AMOXICILLIN 500 MG ORAL CAPSULE 502948 AMOXICILLIN Inactive TERBINAFINE HCL 250 MG ORAL TABLET 1 qDay for nail fungus 7 TERBINAFINE HCL 250 MG ORAL TABLET 268726 TERBINAFINE HCL Inact nael Vital Signs Date [...] - Chem istry sodium, serum 132 mmol/L 074-105 4005/07/12 potassium, serum 2.7 mmol/L 3.5-5.2 chloride, serum 93 mmol/L 98-107 carbon dioxide, venous blood 30.8 mmol/L 21.0-32 .0 blood glucose 107 mg/dL 65-110 calcium, serum 9.3 mg/dL 8.5-10.1 urea nitrogen, blood 12 mg/dL 7-18 creatinine, serum 1.00 mg/dL 0.60-1.30 sodium, serum 142 mmol/L 832-939 4682/07/17 potassium, serum 4.2 mmol/L 3.5-5.2 chloride, serum 106 mmol/L 98-107 carbon dioxide, venous blood 29.9 mmol/L 21.0-32 .0 blood glucose 108 mg/dL 65-110 calcium, serum 9.1 mg/dL 8.5-10.1 urea nitrogen, blood 11 mg/dL 7-18 creatinine, serum 0.81 mg/dL 0.60-1.30 Lab Report: Rapid Strep - Lab Microbial identification kit, rapid strep method Negative Negative Encounters Code Encounter Date Provider Facility [id number] Level 3 Est. Patient 10:26:00 [employer] [employer] [facility] CPT-52268 Level 3 Est. Patient 13:35:41 DEVELOPER ARCHITECT Carlton rich MD [facility] CPT-18965 Level 3 Est. Patient 10:03:52 DEVELOPER ARCHITECT Carlton rich MD [facility] CPT-77034 Level 3 Est. Patient 12:17:50 CDT Hugo Resrtepo MD [facility] CPT-19392 Level 3 Est. Patient 13:42:38 CDT Italo KHAN [facility] CPT-50576 Level 3 Est. Patient 13:23:51 CDT Diya Mariana mango [facility] CPT-23289 Level 3 Est. Patient 14:22:19 DEVELOPER ARCHITECT Diya Mariana cobian [facility] CPT-98375 Level 3 Est. Patient 10:11:46 CDT Carlton rich MD [facility] CPT-59803 Level 3 Est. Patient 17:29:43 CDT Elise Cesar spaulding [facility] CPT-00921 Level 3 Est. Patient 11:58:06 CDT Elise And chelly [facility] CPT-80035 Level 4 Est. Patient 14:36:51 CDT Carlton rich MD [facility]-92111 Level 3 Est. Patient 18:16:00 DEVELOPER ARCHITECT Blaine Freeman [facility] CPT-07948 Level 3 Est. Patient 09:45:49 DEVELOPER ARCHITECT Carlton rich MD [facility] CPT-92023 Level 3 Est. Patient 13:19:20 CDT Carlton rich MD [facility] CPT-22282 Level 3 Est. Patient 13:06:43 CDT Ridge tam DO [facility] CPT-51279 Level 3 Est. Patient 10:03:07 CDT Perez Mora MD [facility] CPT-83620 Level 3 Est. Patient 19:50:35 DEVELOPER ARCHITECT Carlton rich MD [facility] CPT-38074 Level 4 Est. Patient 18:05:01 DEVELOPER ARCHITECT Carlton rich MD [facility] CPT-22380 Level 3 Est. Patient 10:45:55 DEVELOPER ARCHITECT Hugo Restrepo MD [facility] CPT-75453 Level 3 Est. Patient 14:12:49 CDT Griffin lincoln [facility] CPT-72191 Level 3 Est. Patient 17:37:24 CDT Carlton rich MD [facility] CPT-67107 Level 3 Est. Patient 16:51:54 CDT Carlton rich MD [facility] CPT-25561 Level 3 Est. Patient 12:18:11 CDT Hugo Restrepo MD [facility] CPT-43909 Level 3 Est. Patient 11:30:25 CDT Marcy crisostomo MD PhD [facility] CPT-22036 Level 3 Est. Patient 12:00:47 DEVELOPER ARCHITECT Carlton rich MD [facility] CPT-23957 Level 3 Est. Patient 16:31:06 DEVELOPER ARCHITECT Carlton rich MD [facility] CPT-14415 Level 3 Est. Patient 16:23:24 DEVELOPER ARCHITECT Ridge tam [facility] CPT-11808 Level 3 Est. Patient 12:34:12 CDT Carlton rich MD [facility] CPT-87792 Level 2 Est. Patient 15:43:33 CDT Robi armstrong MD [facility] CPT-59850 Level 4 Est. Patient 14:04:44 CDT Carlton rich MD [facility] CPT-70337 Level 3 Est. Patient 05:47:59 CDT Ridge tam [facility] CPT-88866 Level 3 Est. Patient 13:12:53 DEVELOPER ARCHITECT Carlton rich MD [facility] CPT-16973 Level 3 Est. Patient 14:26:53 CDT Hugo Restrepo MD [facility] Procedures Code Procedure Name Date Entry Date Standard Desc ription CPT-J1040 Depo Medrol 80 mg (Methyl Prednisolone A cetate) 10:42:44 CDT CPT-J1100 Decadron 8mg (Dexamethasone) 10:42:44 CDT 2 CPT-J0696 Rocephin 1gm Inj Solr 14:32:13 CDT CPT-J1020 Depo Medrol 60 mg (Methyl Prednisolone A cetate) 14:32:13 CDT CPT-J1100 Decadron 6mg (Dexamethasone) 14:32:13 CDT 2 CPT-97815 Hip bilat min 2V w AP pelvis 13:16:20 CDT 2 CPT-67807 Pelvis only 13:07:33 CDT CPT-87505 Spec Collection and Handling Fee 11:25:12 C DT CPT-32832 Fluzone Quadrivalent Intramuscular Suspe nsion 0.5 ML 14:31:55 CDT CPT-92451 Abx/Therapy Injection 13:28:47 DEVELOPER ARCHITECT CPT-J2930 Solu Medrol 125 mg (Methyl Prednisolone Sodium Succinate) 12:00:47 DEVELOPER ARCHITECT CPT-40261 Venipuncture Draw Fee 11:33:31 CDT CPT-53967 EKG Trac and Interp 11:21:09 CDT CPT-86636 Chest 2V Frontal and Lat 11:21:09 CDT 12/15 CPT-65660 Venipuncture Draw Fee 08:02:34 CDT CPT-86456 Chest 2V Frontal and Lat 05:47:59 CDT 06/05
--- OUTSIDE RECORDS SUMMARY | 2019-10-08 09:37 | XMS REPORT | Clinical Summary ---
Author Author Caitlin, Juliana Martinez Organization [facility] Address Unknown Phone Unavailable Allergies, Adverse [...] then 1 po q days 2-5 AZITHROMYCIN [id number] No Longer Active Carlton Hu MD Acti ve TRAMADOL HCL 50 MG TABS 1 po tid with ES Tylenol TRAMADOL HCL 32503324998 Active Ridge Bess DO Active PREMARIN 0.625 MG TABS TAKE 1 TAB BY MOUTH DAILY 07/25 ESTROGENS CONJUGATED [id number] No Longer Active Ridge Bess DO Active CYMBALTA 30 MG CPEP 1 cap by mouth daily DULOXE SNEHA HCL 33156030232 No Longer Active Ridge Bess DO Active AMOXICILLIN 500 MG CAP 1 tab by mouth 3 times daily x 10 days 20 14/04/28 AMOXICILLIN 53930712336 No Longer Active Carlton Hu MD Active AMOXICILLIN 500 MG CAP 1 tab by mouth 3 times daily x 10 days 20 13/03/08 AMOXICILLIN 06346570247 No Longer Active Carlton Hu MD Active CHERATUSSIN AC 100-10 MG/5ML SYRP 1 tsp by mouth every 4 hours as needed for cough GUAIFENESIN-CODEINE 08322508562 Active Carlton banks MD Active CYCLOBENZAPRINE HCL 10 MG TABS 1 tablet by mouth BID prn had pain 2 CYCLOBENZAPRINE HCL 38562572807 Active Carlton Hu MD A ctive PROMETHAZINE-CODEINE 6.25-10 MG/5ML SYRP 1 tsp by mouth ever y 8 hours prn cough PROMETHAZINE-CODEINE 07633277404 No Longer Active Robert Hu MD Active MEDROL (REYNA) 4 MG TABS 6 pills x 1 day, then 5 pill s x 1 day then 4 pills x 1 day, then 3 pills x 1 day, then 2 pills x 1 day, then 1 pill x 1 day, then stop METHYLPREDNISOLONE 72469684344 No Longer Active Parris Mora MD Active AZITHROMYCIN 250 MG TABS 2 po qd x 1 day, then 1 po qd x 4 days AZITHROMYCIN 50301130613 No Longer Active Perez Mora MD Active SYMBICORT 160-4.5 MCG/ACT AERO 2 puffs bid with rinse after 2011 BUDESONIDE-FORMOTEROL FUMARATE 57193744272 No Longer Active Perez Mora MD Active LYRICA 75 MG CAPS TAKE 1 CAPSULE BY MOUTH TWICE DAILY 2013 PREGABALIN 53164386376 No Longer Active Carlton Hu MD Active LYRICA 100 MG CAPS Take 1 tab po BID for fibromyalgia PREGABALIN 60512539205 Active Carlton Hu MD Active TOPAMAX 25 MG TABS 1 qHS x 1 week, then 1 BID x 1 week, then 1 qAM and 2 qHS x 1 week, then 2 BID (migraine prevention) TOPIRAMAT E 35099175463 No Longer Active Jerica AGUILARA Active TOPAMAX 50 MG TABS take 1 tab po BID for migraines. 12/07/10 TOPIRAMATE 64787552190 No Longer Active Jerica Osei RMA Ac tive TOPAMAX 100 MG TABS Take 1 tablet po bid TOPIRAMATE 4999 8479431 Active Carlton Hu MD Active TRIAMCINOLONE ACETONIDE 0.1 % CREA apply three times daily prn r beatrice TRIAMCINOLONE ACETONIDE 55594390396 No Longer Active Carlton Hu MD Active PAXIL 40 MG TAB take 1 tab po qday for depression PAROXETINE HCL 68279111571 Active Carlton Hu MD Active CHERATUSSIN AC 100-10 MG/5ML SYRP 5ml po q6hr PRN Cough GUAIFENESIN-CODEINE 42370367265 No Longer Active Carlton Hu MD Active MEDROL (REYNA) 4 MG TABS 6 tabs on day 1, 5 tabs on d ay 2, 4 tabs on day 3, 3 tabs on day 4, 2 tabs on day 5, 1 tab on day 6 METHYLPREDNISOLONE 35192628389 No Longer Active Perez Mora MD Active AZITHROMYCIN 250 MG TABS 2 po qd x 1 day, then 1 po qd x 4 days AZITHROMYCIN 48514810965 No Longer Active Perez Mora MD Active PROPRANOLOL HCL 60 MG TABS 1 PO Q D PROPRANOL OL HCL 61463729105 No Longer Active Perez Mora MD Active CHERATUSSIN AC 100-10 MG/5ML SYRP take one tsp po Q 6hours prn c ough GUAIFENESIN-CODEINE 14216708698 No Longer Active Peerz Means Active AUGMENTIN 875-125 MG TAB 1 tab by mouth twice daily with food 20 12/03/31 AMOXICILLIN-POT CLAVULANATE 82410004923 No Longer Active Chanel Mora MD Active CHERATUSSIN AC 100-10 MG/5ML SYRP 1 tsp by mouth every 4 hours as needed for cough GUAIFENESIN-CODEINE 95060806708 No Longer Activ e Hugo Restrepo MD Active ACETAMINOPHEN-CODEINE #3 300-30 MG TABS 1 PO Q 4-6 HRS PRN PAIN ACETAMINOPHEN-CODEINE 72361720645 No Longer Active Hugo Restrepo MD Active LEVAQUIN 500 MG TABS take one po QD LEVOFLOXACI N 26886581567 No Longer Active Griffin HERNANDEZ Active PREDNISONE 20 MG TAB Take 3 tabs daily for 3 days , 2 tabs daily for 3 days, 1 tab daily for 3 days, 1/2 tab daily for 3 days P REDNISONE 33381065962 No Longer Active Carlton Hu MD Active AVELOX 400 MG TABS 1 tab by mouth daily MOXIFLO XACIN HCL 49035408272 No Longer Active Carlton Hu MD Active CHERATUSSIN AC 100-10 MG/5ML SYRP 1 tsp by mouth every 4 hours as needed for cough GUAIFENESIN-CODEINE 97677343718 No Longer Activ e Hugo Restrepo MD Active AVELOX 400 MG TABS 1 tab by mouth daily MOXIFLO XACIN HCL 29054664983 No Longer Active Marcy De La Rosa MD PhD Active TERBINAFINE HCL 250 MG TABS 1 qDay TERBINAF INE HCL 50078422109 No Longer Active Marcy De La Rosa MD PhD Active CHERATUSSIN AC 100-10 MG/5ML SYRP 1 tsp by mouth every 4 hours as needed for cough GUAIFENESIN-CODEINE 91188748064 No Longer Activ e Marcy De La Rosa MD PhD Active AVELOX 400 MG TABS 1 tab by mouth daily MOXIFLO XACIN HCL 03893272911 No Longer Active Marcy De La Rosa MD PhD Active HYDROCODONE-ACETAMINOPHEN 5-325 MG TABS 1 po q 6hr PRN cough 201 05/09/16 HYDROCODONE-ACETAMINOPHEN 76192467672 No Longer Active Marcy De La Rosa MD PhD Active PREDNISONE 20 MG TAB 2 tabs daily for 3 days, 1 t ab daily for 3 days, 1/2 tab daily for 2 days PREDNISONE 89760872876 No Longer Active Carlton Hu MD Active CEFDINIR 300 MG CAPS by mouth twice a day CEFDI ODILIA 62513231489 No Longer Active Carlton Hu MD Active ZOCOR 40 MG TAB 1 tab by mouth daily SIMVASTATIN 04960638651 Active Carlton Hu MD Active HYDROCHLOROTHIAZIDE 25 MG TABS 1 TAB PO DAILY H YDROCHLOROTHIAZIDE 73194350007 Active Carlton Hu MD Active ACETAMINOPHEN-CODEINE #3 300-30 MG TABS 1 tablet po q 4-6hrs prn pain ACETAMINOPHEN-CODEINE 89206458096 No Longer Active Ridge Bess DO Active ZITHROMAX 250 MG TAB 2 po today, then 1 po q days 2-5 AZITHROMYCIN 61129447186 No Longer Active Carlton Hu MD Acti ve CHERATUSSIN AC 100-10 MG/5ML SYRP take 1 tsp po q4-6 hours prn c ough GUAIFENESIN-CODEINE 99814101222 No Longer Active Carlton Hu MD Active ACETAMINOPHEN-CODEINE #3 300-30 MG TABS 1 PO Q 4-6 HR PRN PAIN 2 ACETAMINOPHEN-CODEINE 33262230210 No Longer Active Carlton rich MD Active LORTAB 7.5-500 MG/15ML ELIX 7.5 ml po q 4 hour prn cough HYDROCODONE-ACETAMINOPHEN 47047527925 No Longer Active Carlton Hu MD Active PREDNISONE 20 MG TAB 1 po bid 3 days, then 1 po q day 3 days 201 05/03/07 PREDNISONE 39098498365 No Longer Active Carlton Hu MD Active ELMIRON 100 MG CAPS 2 tablets in the am and 1 tablet at hs PENTOSAN POLYSULFATE SODIUM 88322807626 Active Gracie Peacearger Active CEFDINIR 300 MG CAPS by mouth twice a day CEFDI ODILIA 58507798571 No Longer Active Carlton Hu MD Active CEFDINIR 300 MG CAPS by mouth twice a day CEFDI ODILIA 39664882173 No Longer Active Carlton Hu MD Active CEFDINIR 300 MG CAPS by mouth twice a day CEFDI ODILIA 98998216485 No Longer Active Carlton Hu MD Active TESSALON PERLES 100 MG CAP 1 tablet by mouth 3 times daily a s needed for cough BENZONATATE 36125989619 No Longer Active Carlton bustamante MD Active CEFDINIR 300 MG CAPS by mouth twice a day CEFDI ODILIA 85158062170 No Longer Active Carlton Hu MD Active ZITHROMAX Z-REYNA 250 MG TABS 2 today, then 1 daily for 4 days 201 04/09/17 AZITHROMYCIN 92800679588 No Longer Active Hugo Restrepo MD Active TESSALON PERLES 100 MG CAP 1 tablet by mouth 3 times daily a s needed for cough TESSALON PERLES 100 MG CAP 799119 BENZONATATE I nactive PREDNISONE 20 MG TAB 1 po bid 3 days, then 1 po q day 3 days 201 05/03/07 PREDNISONE 20 MG TAB 922280 PREDNISONE Inactive LORTAB 7.5-500 MG/15ML ELIX 7.5 ml po q 4 hour prn cough LORTAB 7.5-500 MG/15ML ELIX HYDROCODONE-ACETAMINOPHEN Inacti ve ACETAMINOPHEN-CODEINE #3 300-30 MG TABS 1 PO Q 4-6 HR PRN PAIN 2 ACETAMINOPHEN-CODEINE #3 300-30 MG TABS 394812 ACETAMIN OPHEN-CODEINE Inactive CHERATUSSIN AC 100-10 MG/5ML SYRP take 1 tsp po q4-6 hours prn c ough CHERATUSSIN AC 100-10 MG/5ML SYRP 248232 GUAIFENESIN-CO DEINE Inactive ACETAMINOPHEN-CODEINE #3 300-30 MG TABS 1 tablet po q 4-6hrs prn pain ACETAMINOPHEN-CODEINE #3 300-30 MG TABS 152820 ACETAMIN OPHEN-CODEINE Inactive HYDROCODONE-ACETAMINOPHEN 5-325 MG TABS 1 po q 6hr PRN cough 201 05/09/16 HYDROCODONE-ACETAMINOPHEN 5-325 MG TABS 918234 HYDROCODONE-ACETAMINOPHEN Inactive AVELOX 400 MG TABS 1 tab by mouth daily A VELOX 400 MG TABS 396517 MOXIFLOXACIN HCL Inactive CHERATUSSIN AC 100-10 MG/5ML SYRP 1 tsp by mouth every 4 hours as needed for cough CHERATUSSIN AC 100-10 MG/5ML SYRP 321277 GUAIFENESIN-CODEINE Inactive TERBINAFINE HCL 250 MG TABS 1 qDay TERBINAFINE HCL 250 MG TABS 554906 TERBINAFINE HCL Inactive CHERATUSSIN AC 100-10 MG/5ML SYRP 1 tsp by mouth every 4 hours as needed for cough CHERATUSSIN AC 100-10 MG/5ML SYRP 503577 GUAIFENESIN-CODEINE Inactive ACETAMINOPHEN-CODEINE #3 300-30 MG TABS 1 PO Q 4-6 HRS PRN PAIN ACETAMINOPHEN-CODEINE #3 300-30 MG TABS 263511 ACETAMINOPHEN-CODEIN E Inactive CHERATUSSIN AC 100-10 MG/5ML SYRP 1 tsp by mouth every 4 hours as needed for cough CHERATUSSIN AC 100-10 MG/5ML SYRP 954515 GUAIFENESIN-CODEINE Inactive AUGMENTIN 875-125 MG TAB 1 tab by mouth twice daily with food 20 12/03/31 AUGMENTIN 875-125 MG TAB 093810 AMOXICILLIN-POT CLAVULA EFE Inactive CHERATUSSIN AC 100-10 MG/5ML SYRP take one tsp po Q 6hours prn c ough CHERATUSSIN AC 100-10 MG/5ML SYRP 513527 GUAIFENESIN-CO DEINE Inactive PROPRANOLOL HCL 60 MG TABS 1 PO Q D P ROPRANOLOL HCL 60 MG TABS 242897 PROPRANOLOL HCL Inactive TOPAMAX 50 MG TABS take 1 tab po BID for migraines. 12/07/10 TOPAMAX 50 MG TABS 405704 TOPIRAMATE Inactive TOPAMAX 25 MG TABS 1 qHS x 1 week, then 1 BID x 1 week, then 1 qAM and 2 qHS x 1 week, then 2 BID (migraine prevention) TOPAMAX 2 5 MG TABS 559490 TOPIRAMATE Inactive LYRICA 75 MG CAPS TAKE 1 CAPSULE BY MOUTH TWICE DAILY LYRICA 75 MG CAPS PREGABALIN Inactive SYMBICORT 160-4.5 MCG/ACT AERO 2 puffs bid with rinse after 2011 SYMBICORT 160-4.5 MCG/ACT AERO BUDESONIDE-FORMOT SÁNCHEZ FUMARATE Inactive PROMETHAZINE-CODEINE 6.25-10 MG/5ML SYRP 1 tsp by mouth ever y 8 hours prn cough PROMETHAZINE-CODEINE 6.25-10 MG/5ML SYRP 399228 PROMETHAZINE-CODEINE Inactive CYMBALTA 30 MG CPEP 1 cap by mouth daily CYMBALTA 30 MG CPEP 534304 DULOXETINE HCL Inactive PREMARIN 0.625 MG TABS TAKE 1 TAB BY MOUTH DAILY 07/25 PREMARIN 0.625 MG TABS ESTROGENS CONJUGATED Inactive ZITHROMAX Z-REYNA 250 MG TABS 2 today, then 1 daily for 4 days 201 04/09/17 ZITHROMAX Z-REYNA 250 MG TABS 3112268 AZITHROMYCIN Inac tive CEFDINIR 300 MG CAPS [...] q days 2-5 ZITHROMAX 250 MG TAB 5770354 AZITHROMYCIN Inactive CEFDINIR 300 MG CAPS by mouth twice a day CEFDINIR 300 MG CAPS 20020704 CEFDINIR Inactive PREDNISONE 20 MG TAB 2 tabs daily for 3 days, 1 t ab daily for 3 days, 1/2 tab daily for 2 days PREDNISONE 20 MG TAB 107616 PREDNISON E Inactive AVELOX 400 MG TABS 1 tab by mouth daily A VELOX 400 MG TABS 039220 MOXIFLOXACIN HCL Inactive AVELOX 400 MG TABS 1 tab by mouth daily A VELOX 400 MG TABS 649067 MOXIFLOXACIN HCL Inactive PREDNISONE 20 MG TAB Take 3 tabs daily for 3 days , 2 tabs daily for 3 days, 1 tab daily for 3 days, 1/2 tab daily for 3 days PREDNISONE 20 MG TAB 609733 PREDNISONE Inactive LEVAQUIN 500 MG TABS take one po QD LEVAQUIN 50 0 MG TABS 971080 LEVOFLOXACIN Inactive AZITHROMYCIN 250 MG TABS 2 po qd x 1 day, then 1 po qd x 4 days AZITHROMYCIN 250 MG TABS 0250407 AZITHROMYCIN Inactiv e MEDROL (REYNA) 4 MG TABS 6 tabs on day 1, 5 tabs on d ay 2, 4 tabs on day 3, 3 tabs on day 4, 2 tabs on day 5, 1 tab on day 6 MEDROL (REYNA) 4 MG TABS METHYLPREDNISOLONE Inactive CHERATUSSIN AC 100-10 MG/5ML SYRP 5ml po q6hr PRN Cough CHERATUSSIN AC 100-10 MG/5ML SYRP 526286 GUAIFENESIN-CODEINE Inacti ve TRIAMCINOLONE ACETONIDE 0.1 % CREA apply three times daily prn r beatrice TRIAMCINOLONE ACETONIDE 0.1 % CREA 7295680 TRIAMCINOLONE ACETONIDE Inactive AZITHROMYCIN 250 MG TABS 2 po qd x 1 day, then 1 po qd x 4 days AZITHROMYCIN 250 MG TABS 9745708 AZITHROMYCIN Inactiv e MEDROL (REYNA) 4 MG [...] days 20 13/03/08 AMOXICILLIN 500 MG CAP 732368 AMOXICILLIN Inactive AMOXICILLIN 500 MG CAP 1 tab by mouth 3 times daily x 10 days 20 14/04/28 AMOXICILLIN 500 MG CAP 387300 AMOXICILLIN Inactive ZITHROMAX 250 MG TAB 2 po today, then 1 po q days 2-5 ZITHROMAX 250 MG TAB 6693496 AZITHROMYCIN Inactive Vital Signs Date Name Value [...] [phone] Encounters Code Encounter Date Provider Facility CPT-19490 Level 3 Est. Patient 13:19:20 CDT Carlton rich MD [facility]-42594 Level 3 Est. Patient 13:06:43 CDT Ridge tam DO [facility] CPT-10952 Level 3 Est. Patient 10:03:07 CDT Perez Mora MD [facility]-34200 Level 3 Est. Patient 19:50:35 WASTE PICKER Carlton rich MD [facility]-39002 Level 4 Est. Patient 18:05:01 WASTE PICKER Carlton rich MD [facility]-08160 Level 3 Est. Patient 10:45:55 WASTE PICKER Hugo Restrepo MD [facility]-66838 Level 3 Est. Patient 14:12:49 CDT Griffin HERNANDEZ [facility]-02890 Level 3 Est. Patient 17:37:24 CDT Carlton rich MD [facility]-63613 Level 3 Est. Patient 16:51:54 CDT Carlton rich MD [facility]-37835 Level 3 Est. Patient 12:18:11 CDT Hugo Restrepo MD [facility]-18669 Level 3 Est. Patient 11:30:25 CDT Marcy crisostomo MD PhD [facility]-04652 Level 3 Est. Patient 12:00:47 WASTE PICKER aCrlton rich MD [facility]-67404 Level 3 Est. Patient 16:31:06 WASTE PICKER Carlton rich MD [facility] CPT-52830 Level 3 Est. Patient 16:23:24 WASTE PICKER Ridge tam [facility] CPT-64148 Level 3 Est. Patient 12:34:12 CDT Carlton rich MD [facility] CPT-40232 Level 2 Est. Patient 15:43:33 CDT Robi armstrong MD [facility] CPT-43841 Level 4 Est. Patient 14:04:44 CDT Carlton rich MD [facility] CPT-70433 Level 3 Est. Patient 05:47:59 CDT Ridge tam [facility] CPT-11952 Level 3 Est. Patient 13:12:53 WASTE PICKER Carlton rich MD [facility] CPT-43660 Level 3 Est. Patient 14:26:53 CDT Hugo Restrepo MD [facility] Procedures Code Procedure Name Date Entry Date Standard Desc ription CPT-10364 Hip bilat min 2V w AP pelvis 13:16:20 CDT 2 CPT-65894 Pelvis only 13:07:33 CDT CPT-19365 Spec Collection and Handling Fee 11:25:12 C DT CPT-11842 Fluzone Quadrivalent Intramuscular Suspe nsion 0.5 ML 14:31:55 CDT CPT-75635 Abx/Therapy Injection 13:28:47 WASTE PICKER CPT-J2930 Solu Medrol 125 mg (Methyl Prednisolone Sodium Succinate) 12:00:47 WASTE PICKER CPT-02032 Venipuncture Draw Fee 11:33:31 CDT CPT-67555 EKG Trac and Interp 11:21:09 CDT CPT-16835 Chest 2V Frontal and Lat 11:21:09 CDT 12/15 CPT-59581 Venipuncture Draw Fee 08:02:34 CDT CPT-62853 Chest 2V Frontal and Lat 05:47:59 CDT 06/05
--- OUTSIDE RECORDS SUMMARY | 2019-10-08 09:37 | XMS REPORT | Clinical Summary ---
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 Unspecified sinusitis (chronic) Bronchitis-Acute 466.0 Active Carlton uH MD Acute bronchitis URI - acute 465.9 Active Elise Whitmore AUTO BODY REPAIRMAN Acute upper respiratory infections of unspecified site Pharyngitis acute 462 Active Elise Whitmore A PRN Acute pharyngitis Rhinitis, acute 460 Active Elise Whitmore APR N Acute nasopharyngitis [common cold] BRONCHITIS ICD-490 Inactive Hugo Rsetrepo MD 201 04/09/17 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 FLUTICASONE PRO PIONATE 07657810542 Active Elise Whitmore APRN Active ZITHROMAX 250 MG TAB 2 po today, then 1 po q days 2-5 AZITHROMYCIN 77857196479 No Longer Active Elise Whitmore APRN Acti ve XANAX 0.5 MG TABS one tablet by mouth daily prn anxiety ALPRAZOLAM 48223575633 Active Carlton Hu MD Active CYMBALTA 30 MG CPEP 1 cap by mouth daily for depression DULOXETINE HCL 56437323076 Active Carlton Hu MD Active CEFDINIR 300 MG CAPS 1 po BID x 10 days CEFDINI R 65875941660 No Longer Active Carlton Hu MD Active ZOCOR 40 MG TAB 1 tab by mouth daily SIMVASTATI N 20944292259 No Longer Active Carlton Hu MD Active CYCLOBENZAPRINE HCL 10 MG TABS 1 tablet by mouth BID prn had cherelle n CYCLOBENZAPRINE HCL 87572716835 No Longer Active Carlton Hu MD Active LEVOFLOXACIN 500 MG ORAL TABS 1 tab PO daily x 10 days LEVOFLOXACIN 23097253271 No Longer Active Carlton Hu MD Acti ve PREDNISONE 20 MG ORAL TABS 3 tab PO qd x 2d, 2 tab PO qd x 2d, 1 tab PO qd x 2d, 1/2 tab PO qd x 2d PREDNISONE 53622300344 No Longer Active Carlton Hu MD Active TUSSIONEX PENNKINETIC ER 10-8 MG/5ML ORAL LQCR 5 mL PO q 12 hrs PRN cough HYDROCOD POLST-CHLORPHEN POLST 36384109078 Active Zo meeks Active FLUTICASONE PROPIONATE 50 MCG/ACT SUSP 1 to 2 sprays each no stril daily FLUTICASONE PROPIONATE 72252804224 No Longer Active T jaz HERNANDEZ Active CHERATUSSIN AC 100-10 MG/5ML SYRP 1 tsp by mouth every 4 hours as needed for cough GUAIFENESIN-CODEINE 04424136250 No Longer Activ e Blaine HERNANDEZ Active PROMETHAZINE-CODEINE 6.25-10 MG/5ML SYRP 1 tsp by mout h every 6 hours if needed for cough PROMETHAZINE-CODEINE 53967646739 No Long er Active Blaine HERNANDEZ Active CHERATUSSIN AC 100-10 MG/5ML SYRP 1 tsp by mouth every 4 hours as needed for cough GUAIFENESIN-CODEINE 67101707554 No Longer Activ e Blaine HERNANDEZ Active ZITHROMAX Z-REYNA 250 MG TABS 2 today, then 1 daily for 4 days 201 08/30/03 AZITHROMYCIN 42690792364 No Longer Active Columba Raida Act nael ZITHROMAX 250 MG TAB 2 po today, then 1 po q days 2-5 AZITHROMYCIN 07157830621 No Longer Active Carlton Hu MD Acti ve ZITHROMAX Z-REYNA 250 MG TABS 2 today, then 1 daily for 4 days 201 08/07/20 AZITHROMYCIN 50103807616 No Longer Active Columba Raida Act nael AUGMENTIN 875-125 MG TAB 1 po BID x 10 days AMOXICILLIN- POT CLAVULANATE 21899545508 No Longer Active Diya De Guzman APRN Active ZITHROMAX 250 MG TAB 2 po today, then 1 po q days 2-5 AZITHROMYCIN 30647973978 No Longer Active Carlton Hu MD Acti ve TRAMADOL HCL 50 MG TABS 1 po tid with ES Tylenol TRAMADOL HCL 93597309064 Active Carlton uH MD Active PREMARIN 0.625 MG TABS TAKE 1 TAB BY MOUTH DAILY 07/25 ESTROGENS CONJUGATED 05483310277 No Longer Active Ridge Bess DO Active CYMBALTA 30 MG CPEP 1 cap by mouth daily DULOXE SNEHA HCL 77483885416 No Longer Active Ridge Bess DO Active AMOXICILLIN 500 MG CAP 1 tab by mouth 3 times daily x 10 days 20 14/04/28 AMOXICILLIN 23497205087 No Longer Active Carlton Hu MD Active AMOXICILLIN 500 MG CAP 1 tab by mouth 3 times daily x 10 days 20 13/03/08 AMOXICILLIN 94181723013 No Longer Active Carlton Hu MD Active PROMETHAZINE-CODEINE 6.25-10 MG/5ML SYRP 1 tsp by mouth ever y 8 hours prn cough PROMETHAZINE-CODEINE 84470417293 No Longer Active Robert Hu MD Active MEDROL (REYNA) 4 MG TABS 6 pills x 1 day, then 5 pill s x 1 day then 4 pills x 1 day, then 3 pills x 1 day, then 2 pills x 1 day, then 1 pill x 1 day, then stop METHYLPREDNISOLONE 05526723216 No Longer Active Parris Mora MD Active AZITHROMYCIN 250 MG TABS 2 po qd x 1 day, then 1 po qd x 4 days AZITHROMYCIN 47700924201 No Longer Active Perez Mora MD Active SYMBICORT 160-4.5 MCG/ACT AERO 2 puffs bid with rinse after 2011 BUDESONIDE-FORMOTEROL FUMARATE 29728673083 No Longer Active Perez Mora MD Active LYRICA 75 MG CAPS TAKE 1 CAPSULE BY MOUTH TWICE DAILY 2013 PREGABALIN 89218187666 No Longer Active Carlton Hu MD Active LYRICA 100 MG CAPS Take 1 tab po BID for fibromyalgia PREGABALIN 92487320170 Active Carlton Hu MD Active TOPAMAX 25 MG TABS 1 qHS x 1 week, then 1 BID x 1 week, then 1 qAM and 2 qHS x 1 week, then 2 BID (migraine prevention) TOPIRAMAT E 04792321647 No Longer Active Jerica Farnaz FUENTES Active TOPAMAX 50 MG TABS take 1 tab po BID for migraines. 12/07/10 TOPIRAMATE 31147525149 No Longer Active Jerica Jonesema RMA Ac tive TOPAMAX 100 MG TABS Take 1 tablet po bid TOPIRAMATE 4999 4400580 Active Carlton Hu MD Active TRIAMCINOLONE ACETONIDE 0.1 % CREA apply three times daily prn r beatrice TRIAMCINOLONE ACETONIDE 97980718481 No Longer Active Carlton Hu MD Active PAXIL 40 MG TAB take 1 tab po qday for depression PAROXETINE HCL 68382070847 Active Elise Whitmore AUT[employer] BODY REPAIRMAN Active CHERATUSSIN AC 100-10 MG/5ML SYRP 5ml po q6hr PRN Cough GUAIFENESIN-CODEINE 41646426265 No Longer Active Carlton Hu MD Active MEDROL (REYNA) 4 MG TABS 6 tabs on day 1, 5 tabs on d ay 2, 4 tabs on day 3, 3 tabs on day 4, 2 tabs on day 5, 1 tab on day 6 METHYLPREDNISOLONE 07904585939 No Longer Active Perez Mora MD Active AZITHROMYCIN 250 MG TABS 2 po qd x 1 day, then 1 po qd x 4 days AZITHROMYCIN 33236610767 No Longer Active Perez Mora MD Active PROPRANOLOL HCL 60 MG TABS 1 PO Q D PROPRANOL OL HCL 98077100890 No Longer Active Perez Mora MD Active CHERATUSSIN AC 100-10 MG/5ML SYRP take one tsp po Q 6hours prn c ough GUAIFENESIN-CODEINE 94133149257 No Longer Active Perez Means Active AUGMENTIN 875-125 MG TAB 1 tab by mouth twice daily with food 20 12/03/31 AMOXICILLIN-POT CLAVULANATE 02117364257 No Longer Active Chanel Mora MD Active CHERATUSSIN AC 100-10 MG/5ML SYRP 1 tsp by mouth every 4 hours as needed for cough GUAIFENESIN-CODEINE 95486903601 No Longer Activ e Hugo Restrepo MD Active ACETAMINOPHEN-CODEINE #3 300-30 MG TABS 1 PO Q 4-6 HRS PRN PAIN ACETAMINOPHEN-CODEINE 02782905980 No Longer Active Hugo Restrepo MD Active LEVAQUIN 500 MG TABS take one po QD LEVOFLOXACI N 69001119880 No Longer Active Griffin HERNANDEZ Active PREDNISONE 20 MG TAB Take 3 tabs daily for 3 days , 2 tabs daily for 3 days, 1 tab daily for 3 days, 1/2 tab daily for 3 days P REDNISONE 54900352529 No Longer Active Carlton Hu MD Active AVELOX 400 MG TABS 1 tab by mouth daily MOXIFLO XACIN HCL 34278834189 No Longer Active Carlton Hu MD Active CHERATUSSIN AC 100-10 MG/5ML SYRP 1 tsp by mouth every 4 hours as needed for cough GUAIFENESIN-CODEINE 96174378362 No Longer Activ e Hugo Restrepo MD Active AVELOX 400 MG TABS 1 tab by mouth daily MOXIFLO XACIN HCL 25610261932 No Longer Active Marcy De La Rosa MD PhD Active TERBINAFINE HCL 250 MG TABS 1 qDay TERBINAF INE HCL 11213681685 No Longer Active Marcy De La Rosa MD PhD Active CHERATUSSIN AC 100-10 MG/5ML SYRP 1 tsp by mouth every 4 hours as needed for cough GUAIFENESIN-CODEINE 48446827438 No Longer Activ e Marcy De La Rosa MD PhD Active AVELOX 400 MG TABS 1 tab by mouth daily MOXIFLO XACIN HCL 00266027646 No Longer Active Marcy De La Rosa MD PhD Active HYDROCODONE-ACETAMINOPHEN 5-325 MG TABS 1 po q 6hr PRN cough 201 05/09/16 HYDROCODONE-ACETAMINOPHEN 75118440947 No Longer Active Marcy De La Rosa MD PhD Active PREDNISONE 20 MG TAB 2 tabs daily for 3 days, 1 t ab daily for 3 days, 1/2 tab daily for 2 days PREDNISONE 45139570545 No Longer Active Carlton Hu MD Active CEFDINIR 300 MG CAPS by mouth twice a day CEFDI ODILIA 40730998492 No Longer Active Carlton Hu MD Active HYDROCHLOROTHIAZIDE 25 MG TABS 1 TAB PO DAILY H YDROCHLOROTHIAZIDE 18666591062 Active Carlton Hu MD Active ACETAMINOPHEN-CODEINE #3 300-30 MG TABS 1 tablet po q 4-6hrs prn pain ACETAMINOPHEN-CODEINE 17113371592 No Longer Active Ridge Bess DO Active ZITHROMAX 250 MG TAB 2 po today, then 1 po q days 2-5 AZITHROMYCIN 68555716066 No Longer Active Carlton Hu MD Acti ve CHERATUSSIN AC 100-10 MG/5ML SYRP take 1 tsp po q4-6 hours prn c ough GUAIFENESIN-CODEINE 32384862426 No Longer Active Carlton Hu MD Active ACETAMINOPHEN-CODEINE #3 300-30 MG TABS 1 PO Q 4-6 HR PRN PAIN 2 ACETAMINOPHEN-CODEINE 91269548426 No Longer Active Carlton rich MD Active LORTAB 7.5-500 MG/15ML ELIX 7.5 ml po q 4 hour prn cough HYDROCODONE-ACETAMINOPHEN 71182014899 No Longer Active Carlton Hu MD Active PREDNISONE 20 MG TAB 1 po bid 3 days, then 1 po q day 3 days 201 05/03/07 PREDNISONE 92989114775 No Longer Active Carlton Hu MD Active ELMIRON 100 MG CAPS 2 tablets in the am and 1 tablet at hs PENTOSAN POLYSULFATE SODIUM 75586184006 Active Carlton Hu MD Ac tive CEFDINIR 300 MG CAPS by mouth twice a day CEFDI ODILIA 14390740245 No Longer Active Carlton Hu MD Active CEFDINIR 300 MG CAPS by mouth twice a day CEFDI ODILIA 65616511961 No Longer Active Carlton Hu MD Active CEFDINIR 300 MG CAPS by mouth twice a day CEFDI ODILIA 29658149362 No Longer Active Carlton Hu MD Active TESSALON PERLES 100 MG CAP 1 tablet by mouth 3 times daily a s needed for cough BENZONATATE 06546984662 No Longer Active Carlton bustamante MD Active CEFDINIR 300 MG CAPS by mouth twice a day CEFDI ODILIA 87036203713 No Longer Active Carlton Hu MD Active ZITHROMAX Z-REYNA 250 MG TABS 2 today, then 1 daily for 4 days 201 04/09/17 AZITHROMYCIN 42324813532 No Longer Active Hugo Restrepo MD Active TESSALON PERLES 100 MG CAP 1 tablet by mouth 3 times daily a s needed for cough TESSALON PERLES 100 MG CAP 441291 BENZONATATE I nactive PREDNISONE 20 MG TAB 1 po bid 3 days, then 1 po q day 3 days 201 05/03/07 PREDNISONE 20 MG TAB 489086 PREDNISONE Inactive LORTAB 7.5-500 MG/15ML ELIX 7.5 ml po q 4 hour prn cough LORTAB 7.5-500 MG/15ML ELIX HYDROCODONE-ACETAMINOPHEN Inacti ve ACETAMINOPHEN-CODEINE #3 300-30 MG TABS 1 PO Q 4-6 HR PRN PAIN 2 ACETAMINOPHEN-CODEINE #3 300-30 MG TABS 316412 ACETAMIN OPHEN-CODEINE Inactive CHERATUSSIN AC 100-10 MG/5ML SYRP take 1 tsp po q4-6 hours prn c ough CHERATUSSIN AC 100-10 MG/5ML SYRP 364047 GUAIFENESIN-CO DEINE Inactive ACETAMINOPHEN-CODEINE #3 300-30 MG TABS 1 tablet po q 4-6hrs prn pain ACETAMINOPHEN-CODEINE #3 300-30 MG TABS 889266 ACETAMIN OPHEN-CODEINE Inactive HYDROCODONE-ACETAMINOPHEN 5-325 MG TABS 1 po q 6hr PRN cough 201 05/09/16 HYDROCODONE-ACETAMINOPHEN 5-325 MG TABS 089075 HYDROCODONE-ACETAMINOPHEN Inactive AVELOX 400 MG TABS 1 tab by mouth daily A VELOX 400 MG TABS 649463 MOXIFLOXACIN HCL Inactive CHERATUSSIN AC 100-10 MG/5ML SYRP 1 tsp by mouth every 4 hours as needed for cough CHERATUSSIN AC 100-10 MG/5ML SYRP 677686 GUAIFENESIN-CODEINE Inactive TERBINAFINE HCL 250 MG TABS 1 qDay TERBINAFINE HCL 250 MG TABS 579178 TERBINAFINE HCL Inactive CHERATUSSIN AC 100-10 MG/5ML SYRP 1 tsp by mouth every 4 hours as needed for cough CHERATUSSIN AC 100-10 MG/5ML SYRP 990821 GUAIFENESIN-CODEINE Inactive ACETAMINOPHEN-CODEINE #3 300-30 MG TABS 1 PO Q 4-6 HRS PRN PAIN ACETAMINOPHEN-CODEINE #3 300-30 MG TABS 570822 ACETAMINOPHEN-CODEIN E Inactive CHERATUSSIN AC 100-10 MG/5ML SYRP 1 tsp by mouth every 4 hours as needed for cough CHERATUSSIN AC 100-10 MG/5ML SYRP 624214 GUAIFENESIN-CODEINE Inactive AUGMENTIN 875-125 MG TAB 1 tab by mouth twice daily with food 20 12/03/31 AUGMENTIN 875-125 MG TAB 733049 AMOXICILLIN-POT CLAVULA EFE Inactive CHERATUSSIN AC 100-10 MG/5ML SYRP take one tsp po Q 6hours prn c ough CHERATUSSIN AC 100-10 MG/5ML SYRP 605647 GUAIFENESIN-CO DEINE Inactive PROPRANOLOL HCL 60 MG TABS 1 PO Q D P ROPRANOLOL HCL 60 MG TABS 816488 PROPRANOLOL HCL Inactive TOPAMAX 50 MG TABS take 1 tab po BID for migraines. 12/07/10 TOPAMAX 50 MG TABS 003257 TOPIRAMATE Inactive TOPAMAX 25 MG TABS 1 qHS x 1 week, then 1 BID x 1 week, then 1 qAM and 2 qHS x 1 week, then 2 BID (migraine prevention) TOPAMAX 2 5 MG TABS 864088 TOPIRAMATE Inactive LYRICA 75 MG CAPS TAKE 1 CAPSULE BY MOUTH TWICE DAILY LYRICA 75 MG CAPS PREGABALIN Inactive SYMBICORT 160-4.5 MCG/ACT AERO 2 puffs bid with rinse after 2011 SYMBICORT 160-4.5 MCG/ACT AERO BUDESONIDE-FORMOT SÁNCHEZ FUMARATE Inactive PROMETHAZINE-CODEINE 6.25-10 MG/5ML SYRP 1 tsp by mouth ever y 8 hours prn cough PROMETHAZINE-CODEINE 6.25-10 MG/5ML SYRP 113634 PROMETHAZINE-CODEINE Inactive CYMBALTA 30 MG CPEP 1 cap by mouth daily CYMBALTA 30 MG CPEP 631233 DULOXETINE HCL Inactive PREMARIN 0.625 MG TABS TAKE 1 TAB BY MOUTH DAILY 07/25 PREMARIN 0.625 MG TABS ESTROGENS CONJUGATED Inactive CHERATUSSIN AC 100-10 MG/5ML SYRP 1 tsp by mouth every 4 hours as needed for cough CHERATUSSIN AC 100-10 MG/5ML SYRP 210365 GUAIFENESIN-CODEINE Inactive PROMETHAZINE-CODEINE 6.25-10 MG/5ML SYRP 1 tsp by mout h every 6 hours if needed for cough PROMETHAZINE-CODEINE 6.25-10 MG/5ML SYRP 558466 PROMETHAZINE-CODEINE Inactive CHERATUSSIN AC 100-10 MG/5ML SYRP 1 tsp by mouth every 4 hours as needed for cough CHERATUSSIN AC 100-10 MG/5ML SYRP 650101 GUAIFENESIN-CODEINE Inactive FLUTICASONE PROPIONATE 50 MCG/ACT SUSP 1 to 2 sprays each no stril daily FLUTICASONE PROPIONATE 50 MCG/ACT SUSP 572194 FLUTICASONE PROPIONATE Inactive PREDNISONE 20 MG ORAL TABS 3 tab PO qd x 2d, 2 tab PO qd x 2d, 1 tab PO qd x 2d, 1/2 tab PO qd x 2d PREDNISONE 20 MG ORAL TABS 548983 PREDNISONE Inactive LEVOFLOXACIN 500 MG ORAL TABS 1 tab PO daily x 10 days LEVOFLOXACIN 500 MG ORAL TABS 029240 LEVOFLOXACIN Inactive CYCLOBENZAPRINE HCL 10 MG TABS 1 tablet by mouth BID prn had cherelle n CYCLOBENZAPRINE HCL 10 MG TABS 946893 CYCLOBENZAPRINE H CL Inactive ZOCOR 40 MG TAB 1 tab by mouth daily ZOCOR 40 M G TAB 096650 SIMVASTATIN Inactive ZITHROMAX Z-REYNA 250 MG TABS 2 today, then 1 daily for 4 days 201 04/09/17 ZITHROMAX Z-REYNA 250 MG TABS 3587960 AZITHROMYCIN Inac tive CEFDINIR 300 MG CAPS [...] q days 2-5 ZITHROMAX 250 MG TAB 2597794 AZITHROMYCIN Inactive CEFDINIR 300 MG CAPS by mouth twice a day CEFDINIR 300 MG CAPS 20020704 CEFDINIR Inactive PREDNISONE 20 MG TAB 2 tabs daily for 3 days, 1 t ab daily for 3 days, 1/2 tab daily for 2 days PREDNISONE 20 MG TAB 469226 PREDNISON E Inactive AVELOX 400 MG TABS 1 tab by mouth daily A VELOX 400 MG TABS 624894 MOXIFLOXACIN HCL Inactive AVELOX 400 MG TABS 1 tab by mouth daily A VELOX 400 MG TABS 049154 MOXIFLOXACIN HCL Inactive PREDNISONE 20 MG TAB Take 3 tabs daily for 3 days , 2 tabs daily for 3 days, 1 tab daily for 3 days, 1/2 tab daily for 3 days PREDNISONE 20 MG TAB 975641 PREDNISONE Inactive LEVAQUIN 500 MG TABS take one po QD LEVAQUIN 50 0 MG TABS 397113 LEVOFLOXACIN Inactive AZITHROMYCIN 250 MG TABS 2 po qd x 1 day, then 1 po qd x 4 days AZITHROMYCIN 250 MG TABS 2434450 AZITHROMYCIN Inactiv e MEDROL (REYNA) 4 MG TABS 6 tabs on day 1, 5 tabs on d ay 2, 4 tabs on day 3, 3 tabs on day 4, 2 tabs on day 5, 1 tab on day 6 MEDROL (REYNA) 4 MG TABS 176484 METHYLPREDNISOLONE Inactive CHERATUSSIN AC 100-10 MG/5ML SYRP 5ml po q6hr PRN Cough CHERATUSSIN AC 100-10 MG/5ML SYRP 811647 GUAIFENESIN-CODEINE Inacti ve TRIAMCINOLONE ACETONIDE 0.1 % CREA apply three times daily prn r beatrice TRIAMCINOLONE ACETONIDE 0.1 % CREA 5135196 TRIAMCINOLONE ACETONIDE Inactive AZITHROMYCIN 250 MG TABS 2 po qd x 1 day, then 1 po qd x 4 days AZITHROMYCIN 250 MG TABS 8219718 AZITHROMYCIN Inactiv e MEDROL (REYNA) 4 MG TABS 6 pills x 1 day, then 5 pill s x 1 day then 4 pills x 1 day, then 3 pills x 1 day, then 2 pills x 1 day, then 1 pill x 1 day, then stop MEDROL (REYNA) 4 MG TABS 063328 METHYLPREDNISOLONE Inactive AMOXICILLIN 500 MG CAP 1 tab by mouth 3 times daily x 10 days 20 13/03/08 AMOXICILLIN 500 MG CAP 041340 AMOXICILLIN Inactive AMOXICILLIN 500 MG CAP 1 tab by mouth 3 times daily x 10 days 20 14/04/28 AMOXICILLIN 500 MG CAP 770941 AMOXICILLIN Inactive ZITHROMAX 250 MG TAB 2 po today, then 1 po q days 2-5 ZITHROMAX 250 MG TAB 5941842 AZITHROMYCIN Inactive AUGMENTIN 875-125 MG TAB 1 po BID x 10 days AUGMENTIN 875- 125 MG TAB 715160 AMOXICILLIN-POT CLAVULANATE Inactive ZITHROMAX Z-REYNA 250 MG TABS 2 today, then 1 daily for 4 days 201 08/07/20 ZITHROMAX Z-REYNA 250 MG TABS 0436723 AZITHROMYCIN Inac tive ZITHROMAX 250 MG TAB 2 po today, then 1 po q days 2-5 ZITHROMAX 250 MG TAB 4319440 AZITHROMYCIN Inactive ZITHROMAX Z-REYNA 250 MG TABS 2 today, then 1 daily for 4 days 201 08/30/03 ZITHROMAX Z-REYNA 250 MG TABS 8518544 AZITHROMYCIN Inac tive CEFDINIR 300 MG CAPS 1 po BID x 10 days C EFDINIR 300 MG CAPS 426630 CEFDINIR Inactive ZITHROMAX 250 MG TAB 2 po today, then 1 po q days 2-5 ZITHROMAX 250 MG TAB 3664002 AZITHROMYCIN Inactive LEVAQUIN 500 MG TAB 1 tablet by mouth daily LEVAQUIN 500 MG TAB 605322 LEVOFLOXACIN Inactive Vital Signs Date Name Value [...] Measured Encounters Code Encounter Date Provider Facility CPT-98411 Level 3 Est. Patient 10:11:46 CDT Carlton rich MD [facility] CPT-34935 Level 3 Est. Patient 17:29:43 CDT Italo AUTO BODY REPAIRMAN [facility] CPT-98492 Level 3 Est. Patient 11:58:06 CDT Italo AUTO BODY REPAIRMAN [facility] CPT-81396 Level 4 Est. Patient 14:36:51 CDT Carlton rich MD [facility] CPT-40499 Level 3 Est. Patient 18:16:00 STAFFING AND SCHEDULING COORDINATOR Blaine W Cloven [facility] CPT-08737 Level 3 Est. Patient 09:45:49 STAFFING AND SCHEDULING COORDINATOR Carlton rich MD [facility]-65972 Level 3 Est. Patient 13:19:20 CDT Carlton rich MD [facility]-61908 Level 3 Est. Patient 13:06:43 CDT Ridge tam DO [facility] CPT-00262 Level 3 Est. Patient 10:03:07 CDT Perez Mora MD [facility]-66256 Level 3 Est. Patient 19:50:35 STAFFING AND SCHEDULING COORDINATOR Carlton rich MD [facility]-89916 Level 4 Est. Patient 18:05:01 STAFFING AND SCHEDULING COORDINATOR Carlton rich MD [facility]-52746 Level 3 Est. Patient 10:45:55 STAFFING AND SCHEDULING COORDINATOR Hugo Restrepo MD [facility]-75513 Level 3 Est. Patient 14:12:49 CDT Griffin lincoln [facility]-03143 Level 3 Est. Patient 17:37:24 CDT Carlton rich MD [facility]-20887 Level 3 Est. Patient 16:51:54 CDT Carlton rich MD [facility]-08867 Level 3 Est. Patient 12:18:11 CDT Hugo Restrepo MD [facility]-88735 Level 3 Est. Patient 11:30:25 CDT Marcy crisostomo MD PhD [facility]-70251 Level 3 Est. Patient 12:00:47 STAFFING AND SCHEDULING COORDINATOR Carlton rich MD [facility]-47553 Level 3 Est. Patient 16:31:06 STAFFING AND SCHEDULING COORDINATOR Carlton rich MD [facility]-14287 Level 3 Est. Patient 16:23:24 STAFFING AND SCHEDULING COORDINATOR Ridge tam [facility] CPT-99558 Level 3 Est. Patient 12:34:12 CDT Carlton rich MD [facility] CPT-45741 Level 2 Est. Patient 15:43:33 CDT Robi armstrong MD [facility] CPT-24149 Level 4 Est. Patient 14:04:44 CDT Carlton rich MD [facility] CPT-92958 Level 3 Est. Patient 05:47:59 CDT Ridge tam [facility] CPT-27418 Level 3 Est. Patient 13:12:53 STAFFING AND SCHEDULING COORDINATOR Carlton rich MD [facility] CPT-56153 Level 3 Est. Patient 14:26:53 CDT Hugo Restrepo MD [facility] Procedures Code Procedure Name Date Entry Date Standard Desc ription CPT-J0696 Rocephin 1gm Inj Solr 14:32:13 CDT CPT-J1020 Depo Medrol 60 mg (Methyl Prednisolone A cetate) 14:32:13 CDT CPT-J1100 Decadron 6mg (Dexamethasone) 14:32:13 CDT 2 CPT-66715 Hip bilat min 2V w AP pelvis 13:16:20 CDT 2 CPT-43633 Pelvis only 13:07:33 CDT CPT-85123 Spec Collection and Handling Fee 11:25:12 C DT CPT-69747 Fluzone Quadrivalent Intramuscular Suspe nsion 0.5 ML 14:31:55 CDT CPT-27041 Abx/Therapy Injection 13:28:47 STAFFING AND SCHEDULING COORDINATOR CPT-J2930 Solu Medrol 125 mg (Methyl Prednisolone Sodium Succinate) 12:00:47 STAFFING AND SCHEDULING COORDINATOR CPT-36457 Venipuncture Draw Fee 11:33:31 CDT CPT-44422 EKG Trac and Interp 11:21:09 CDT CPT-92513 Chest 2V Frontal and Lat 11:21:09 CDT 12/15 CPT-47459 Venipuncture Draw Fee 08:02:34 CDT CPT-51539 Chest 2V Frontal and Lat 05:47:59 CDT 06/05
--- OUTSIDE RECORDS SUMMARY | 2019-10-08 09:38 | XMS REPORT | Clinical Summary ---
Author Author Caitlin, Juliana Martinez Organization [employer] [facility] Address Unknown Phone Unavailable Allergies, Adverse [...] health care facility HEADACHE 784.0 Active Carlton uH MD Headache DEPRESSION 311 Active Carlton Hu [...] po qd x 5 days P REDNISONE 27298457714 No Longer Active Perez Mora MD Active PROAIR HFA 108 (90 BASE) MCG/ACT INHALATION AEROSOL SO LUTION 2 puffs four times a day as needed ALBUTEROL SULFATE 33176951448 No Long er Active Becky FUENTES Active ASPIRIN 81 MG ORAL TABLET 1 po qd ASPIRIN 15213797514 Active Carlton Hu MD Active PREDNISONE 20 MG ORAL TABLET 1 tab twice daily for 3 d ay, then one daily for three days PREDNISONE 78757367323 No Longer Active Carlton Hu MD Active AUGMENTIN 875-125 MG ORAL TABLET 1 po BID x 10 days 16/03/22 AMOXICILLIN-POT CLAVULANATE 42783278305 No Longer Active Elise Garcia APRN Active TERBINAFINE HCL 250 MG ORAL TABLET 1 qDay for nail fungus 7 TERBINAFINE HCL 46909121481 No Longer Active Carlton Hu MD A ctive TUSSIONEX PENNKINETIC ER 10-8 MG/5ML ORAL SUSPENSION E XTENDED RELEASE 5ml po q12hr PRN Cough HYDROCOD POLST-CHLORPHEN POLST 51043821082 Active Perez Mora MD Active AMOXICILLIN 500 MG ORAL CAPSULE 1 cap by mouth three times a day AMOXICILLIN 62661182542 No Longer Active Carlton Hu MD Active ELMIRON 100 MG ORAL CAPSULE 2 tablets in the am and 1 tablet at hs PENTOSAN POLYSULFATE SODIUM 84509455574 No Longer Active Robert Hu MD Active MUCINEX D 60-600 MG ORAL TABLET EXTENDED RELEASE 12 HOUR 1 t ab po q am PSEUDOEPHEDRINE-GUAIFENESIN 99660362462 No Longer Act nael Carlton Hu MD Active MUCINEX DM MAXIMUM STRENGTH 60-1200 MG ORAL TABLET EXT ENDED RELEASE 12 HOUR 1 tab po q am DEXTROMETHORPHAN-GUAIFENESIN 61969851569 No Longer Active Carlton Hu MD Active TUSSIONEX PENNKINETIC ER 10-8 MG/5ML ORAL SUSPENSION E XTENDED RELEASE 5ml po q12hr PRN Cough HYDROCOD POLST-CHLORPHEN POLST 5 3173362933 No Longer Active Carlton Hu MD Active POTASSIUM CHLORIDE ER 20 MEQ ORAL TABLET EXTENDED RELE ASE Take 1 by mouth 4 times daily for 7 days POTASSIUM CHLORIDE 88293564680 No Longer Active Carlton Hu MD Active ZITHROMAX 250 MG ORAL TABLET 2 po today, then 1 po q days 2-5 20 14/09/04 AZITHROMYCIN 19357631702 No Longer Active Elise Garcia APRN Active TUSSIONEX PENNKINETIC ER 10-8 MG/5ML ORAL SUSPENSION E XTENDED RELEASE 5 ml twice a day as needed for cough HYDROCOD POLST-CHLORPH EN POLST 70723765589 No Longer Active Elise Garcia APRN Active MONTELUKAST SODIUM 10 MG ORAL TABLET 1 po daily for Allergy MONTELUKAST SODIUM 46671452615 Active Carlton Hu MD Ac tive TUSSIONEX PENNKINETIC ER 10-8 MG/5ML ORAL SUSPENSION E XTENDED RELEASE 5ml po q12hr PRN Cough HYDROCOD POLST-CHLORPHEN POLST 5 4784396550 No Longer Active Hugo Restrepo MD Active GABAPENTIN 100 MG ORAL CAPSULE 1 po BID for fibromyalgia GABAPENTIN 85299735365 Active Carlton Hu MD Active LYRICA 100 MG ORAL CAPSULE Take 1 tab po BID for fibromyalgia 20 11/08/21 PREGABALIN 74696954625 No Longer Active Elise Garcia APRN A ctive PREDNISONE 20 MG ORAL TABLET 2 tabs daily for 3 days, 1 tab daily for 3 days, 1/2 tab daily for 2 days PREDNISONE 34843228226 No Longer Active Diya De Guzman APRN Active TUSSIONEX PENNKINETIC ER 10-8 MG/5ML ORAL SUSPENSION E XTENDED RELEASE 5 mL PO q 12 hrs PRN cough HYDROCOD POLST-CHLORPHEN POLST 369385 58227 No Longer Active Jillina Gege RICEN Active FLUTICASONE PROPIONATE 50 MCG/ACT NASAL SUSPENSION 2 s prays each nostril daily until bottle is empty FLUTICASONE PROPIONATE 140071790 99 No Longer Active Diya De Guzman APRN Active ASMANEX 60 METERED DOSES 220 MCG/INH INHALATION AEROSO L POWDER BREATH ACTIVATED 1 puff bid with rinse after MOMETASONE FUROATE 6326288 4102 No Longer Active Diya De Guzman [employer] Active ZITHROMAX Z-REYNA 250 MG ORAL TABLET 2 today, then 1 daily for 4 d ays AZITHROMYCIN 42768063739 No Longer Active Elise Garcia APRN Active TUSSIONEX PENNKINETIC ER 10-8 MG/5ML ORAL SUSPENSION E XTENDED RELEASE 5ml po q12hr PRN Cough HYDROCOD POLST-CHLORPHEN POLST 5 0044298990 No Longer Active Elise Garcia APRN Active PREDNISONE 20 MG ORAL TABLET 2 tabs daily for 3 days, 1 tab daily for 3 days, 1/2 tab daily for 2 days PREDNISONE 71277394209 No Longer Active Diya De Guzman APRN Active AMOXICILLIN 500 MG ORAL CAPSULE 2 po BID x 10 days 201 09/29/08 AMOXICILLIN 68338364345 No Longer Active Diya De Guzman APRN Act nael SINGULAIR 10 MG ORAL TABLET 1 po qday for allergies 20 14/01/12 MONTELUKAST SODIUM 29141386857 No Longer Active Carlton Hu MD Active LEVAQUIN 500 MG ORAL TABLET 1 tablet by mouth daily 20 13/09/24 LEVOFLOXACIN 48293663115 No Longer Active Carlton Hu MD Acti ve FLUTICASONE PROPIONATE 50 MCG/ACT NASAL SUSPENSION 2 s prays each nostril daily for 2 weeks, then 1 spray each nostril daily. FLUTICASONE PROPIONATE 80121625432 Active Elise Garcia APRN Active ZITHROMAX 250 MG ORAL TABLET 2 po today, then 1 po q days 2-5 20 13/08/10 AZITHROMYCIN 38783853650 No Longer Active Elise Garcia APRN Active XANAX 0.5 MG ORAL TABLET one tablet by mouth daily prn anxiety 2015 ALPRAZOLAM 08897957923 Active Carlton Hu MD Active CYMBALTA 30 MG ORAL CAPSULE DELAYED RELEASE PARTICLES 1 cap by mouth daily for depression DULOXETINE HCL 52137622569 Active Carlton beltrán MD Active CEFDINIR 300 MG ORAL CAPSULE 1 po BID x 10 days CEFDINIR 84439352784 No Longer Active Carlton Hu MD Active ZOCOR 40 MG ORAL TABLET 1 tab by mouth daily SI MVASTATIN 70113585569 No Longer Active Carlton Hu MD Active CYCLOBENZAPRINE HCL 10 MG ORAL TABLET 1 tablet by mouth BID prn had pain CYCLOBENZAPRINE HCL 92990787837 No Longer Active Jayden Hu MD Active LEVOFLOXACIN 500 MG ORAL TABLET 1 tab PO daily x 10 days LEVOFLOXACIN 59679551836 No Longer Active Carlton Hu MD Acti ve PREDNISONE 20 MG ORAL TABLET 3 tab PO qd x 2d, 2 tab P O qd x 2d, 1 tab PO qd x 2d, 1/2 tab PO qd x 2d PREDNISONE 48276799409 No Lo nger Active Carlton Hu MD Active FLUTICASONE PROPIONATE 50 MCG/ACT NASAL SUSPENSION 1 t o 2 sprays each nostril daily FLUTICASONE PROPIONATE 19342171662 No Longer Ac tive Blaine HERNANDEZ Active CHERATUSSIN AC 100-10 MG/5ML ORAL SYRUP 1 tsp by mouth every 4 hours as needed for cough GUAIFENESIN-CODEINE 73472401746 No Longe r Active Blaine HERNANDEZ Active PROMETHAZINE-CODEINE 6.25-10 MG/5ML ORAL SYRUP 1 tsp b y mouth every 6 hours if needed for cough PROMETHAZINE-CODEINE 73746232905 No Longer Active Blaine HERNANDEZ Active CHERATUSSIN AC 100-10 MG/5ML ORAL SYRUP 1 tsp by mouth every 4 hours as needed for cough GUAIFENESIN-CODEINE 88193372080 No Longe r Active Blaine HERNANDEZ Active ZITHROMAX Z-REYNA 250 MG ORAL TABLET 2 today, then 1 daily for 4 d ays AZITHROMYCIN 75330341960 No Longer Active Columba Raida Act nael ZITHROMAX 250 MG ORAL TABLET 2 po today, then 1 po q days 2-5 20 14/03/21 AZITHROMYCIN 23111001871 No Longer Active Carlton Hu MD Active ZITHROMAX Z-REYNA 250 MG ORAL TABLET 2 today, then 1 daily for 4 d ays AZITHROMYCIN 23381437292 No Longer Active Columba Raida Act nael AUGMENTIN 875-125 MG ORAL TABLET 1 po BID x 10 days 13/01/20 AMOXICILLIN-POT CLAVULANATE 39875259968 No Longer Active Diya De Guzman APRN Active ZITHROMAX 250 MG ORAL TABLET 2 po today, then 1 po q days 2-5 20 12/08/14 AZITHROMYCIN 96884136752 No Longer Active Carlton Hu MD Active TRAMADOL HCL 50 MG ORAL TABLET 1 po tid with ES Tylenol TRAMADOL HCL 98052767196 Active Carlton Hu MD Active PREMARIN 0.625 MG ORAL TABLET TAKE 1 TAB BY MOUTH DAILY ESTROGENS CONJUGATED 11382724623 No Longer Active Ridge Bess DO A ctive CYMBALTA 30 MG ORAL CAPSULE DELAYED RELEASE PARTICLES 1 cap by mouth daily DULOXETINE HCL 31056607118 No Longer Active Ridge tam DO Active AMOXICILLIN 500 MG ORAL CAPSULE 1 tab by mouth 3 times daily x 10 days AMOXICILLIN 98362100680 No Longer Active Carlton bustamante MD Active AMOXICILLIN 500 MG ORAL CAPSULE 1 tab by mouth 3 times daily x 10 days AMOXICILLIN 23212193040 No Longer Active Carlton bustamante MD Active PROMETHAZINE-CODEINE 6.25-10 MG/5ML ORAL SYRUP 1 tsp b y mouth every 8 hours prn cough PROMETHAZINE-CODEINE 68345067743 No Longer Acti ve Carlton Hu MD Active MEDROL 4 MG ORAL TABLET THERAPY PACK 6 pills x 1 day, then 5 pills x 1 day then 4 pills x 1 day, then 3 pills x 1 day, then 2 pills x 1 day, then 1 pill x 1 day, then stop METHYLPREDNISOLONE 44537828247 No Long er Active Perez Mora MD Active AZITHROMYCIN 250 MG ORAL TABLET 2 po qd x 1 day, then 1 po q d x 4 days AZITHROMYCIN 95324748025 No Longer Active Perez Ambriz MD Active SYMBICORT 160-4.5 MCG/ACT INHALATION AEROSOL 2 puffs bid wit h rinse after BUDESONIDE-FORMOTEROL FUMARATE 98933197511 N o Longer Active Perez Mora MD Active LYRICA 75 MG ORAL CAPSULE TAKE 1 CAPSULE BY MOUTH TWICE DAILY PREGABALIN 68261463616 No Longer Active Carlton Hu MD Acti ve TOPAMAX 25 MG ORAL TABLET 1 qHS x 1 week, then 1 BID x 1 week, then 1 qAM and 2 qHS x 1 week, then 2 BID (migraine prevention) T OPIRAMATE 74525119059 No Longer Active Jerica FUENTES Active TOPAMAX 50 MG ORAL TABLET take 1 tab po BID for migraines. 07/02 TOPIRAMATE 55225819877 No Longer Active Jerica FUENTES Active TOPAMAX 100 MG ORAL TABLET Take 1 tablet po bid TO PIRAMATE 33753284346 Active Carlton Hu MD Active TRIAMCINOLONE ACETONIDE 0.1 % EXTERNAL CREAM apply three roger es daily prn rash TRIAMCINOLONE ACETONIDE 35070477277 No Longer Active Carlton Hu MD Active PAXIL 40 MG ORAL TABLET take 1 tab po qday for depression 0 PAROXETINE HCL 93102038909 Active Carlton Hu MD Active CHERATUSSIN AC 100-10 MG/5ML ORAL SYRUP 5ml po q6hr PRN Cough 20 13/04/14 GUAIFENESIN-CODEINE 54424249897 No Longer Active Carlton Hu MD Active MEDROL 4 MG ORAL TABLET THERAPY PACK 6 tabs on day 1, 5 tabs on day 2, 4 tabs on day 3, 3 tabs on day 4, 2 tabs on day 5, 1 tab on day 6 2013 METHYLPREDNISOLONE 66175975754 No Longer Active Perez Mora MD Active AZITHROMYCIN 250 MG ORAL TABLET 2 po qd x 1 day, then 1 po q d x 4 days AZITHROMYCIN 62360174403 No Longer Active Perez Ambriz MD Active PROPRANOLOL HCL 60 MG ORAL TABLET 1 PO Q D PROPRANOLOL HCL 84835063312 No Longer Active Perez Mora MD Activ e CHERATUSSIN AC 100-10 MG/5ML ORAL SYRUP take one tsp po Q 6h ours prn cough GUAIFENESIN-CODEINE 90535286730 No Longer Active iZa Mora MD Active AUGMENTIN 875-125 MG ORAL TABLET 1 tab by mouth twice daily with food AMOXICILLIN-POT CLAVULANATE 36334458521 No Longer Act nael Perez Mora MD Active CHERATUSSIN AC 100-10 MG/5ML ORAL SYRUP 1 tsp by mouth every 4 hours as needed for cough GUAIFENESIN-CODEINE 24858910766 No Longe r Active Hugo Restrepo MD Active ACETAMINOPHEN-CODEINE #3 300-30 MG ORAL TABLET 1 PO Q 4-6 HRS OR N PAIN ACETAMINOPHEN-CODEINE 75154955752 No Longer Active Hugo Restrepo MD Active LEVAQUIN 500 MG ORAL TABLET take one po QD LEVO FLOXACIN 66260895674 No Longer Active Griffin HERNANDEZ Active PREDNISONE 20 MG ORAL TABLET Take 3 tabs daily for 3 d ays, 2 tabs daily for 3 days, 1 tab daily for 3 days, 1/2 tab daily for 3 days 11/07 PREDNISONE 31290186172 No Longer Active Carlton Hu MD Acti ve AVELOX 400 MG ORAL TABLET 1 tab by mouth daily MOXIFLOXACIN HCL 76965000290 No Longer Active Carlton Hu MD Active CHERATUSSIN AC 100-10 MG/5ML ORAL SYRUP 1 tsp by mouth every 4 hours as needed for cough GUAIFENESIN-CODEINE 78659598785 No Longe r Active Hugo Restrepo MD Active AVELOX 400 MG ORAL TABLET 1 tab by mouth daily MOXIFLOXACIN HCL 85501461857 No Longer Active Marcy De La Rosa MD PhD Active TERBINAFINE HCL 250 MG ORAL TABLET 1 qDay T ERBINAFINE HCL 65631178435 No Longer Active Marcy De La Rosa MD PhD Active CHERATUSSIN AC 100-10 MG/5ML ORAL SYRUP 1 tsp by mouth every 4 hours as needed for cough GUAIFENESIN-CODEINE 76831188803 No Longe r Active Marcy eD La Rosa MD PhD Active AVELOX 400 MG ORAL TABLET 1 tab by mouth daily MOXIFLOXACIN HCL 18318430184 No Longer Active Marcy De La Rosa MD PhD Active HYDROCODONE-ACETAMINOPHEN 5-325 MG ORAL TABLET 1 po q 6hr PRN co ugh HYDROCODONE-ACETAMINOPHEN 38166987633 No Longer Active Marcy De La Rosa MD PhD Active PREDNISONE 20 MG ORAL TABLET 2 tabs daily for 3 days, 1 tab daily for 3 days, 1/2 tab daily for 2 days PREDNISONE 03503003916 No Longer Active Carlton Hu MD Active CEFDINIR 300 MG ORAL CAPSULE by mouth twice a day 2011 CEFDINIR 49471301073 No Longer Active Carlton Hu MD Acti ve HYDROCHLOROTHIAZIDE 25 MG ORAL TABLET 1 TAB PO DAILY HYDROCHLOROTHIAZIDE 64435419490 Active ALFREDO Holly Ac tive ACETAMINOPHEN-CODEINE #3 300-30 MG ORAL TABLET 1 tablet po q 4-6 hrs prn pain ACETAMINOPHEN-CODEINE 18288320750 No Longer Active Ridge Bess DO Active ZITHROMAX 250 MG ORAL TABLET 2 po today, then 1 po q days 2-5 20 03/07/07 AZITHROMYCIN 80963164950 No Longer Active Carlton Hu MD Active CHERATUSSIN AC 100-10 MG/5ML ORAL SYRUP take 1 tsp po q4-6 h ours prn cough GUAIFENESIN-CODEINE 75478684935 No Longer Active Jayden Hu MD Active ACETAMINOPHEN-CODEINE #3 300-30 MG ORAL TABLET 1 PO Q 4-6 HR PRN PAIN ACETAMINOPHEN-CODEINE 06775694032 No Longer Active Anrol Hu MD Active LORTAB 7.5-500 MG/15ML ORAL ELIXIR 7.5 ml po q 4 hour prn cough HYDROCODONE-ACETAMINOPHEN 58428664419 No Longer Active Carlton Hu MD Active PREDNISONE 20 MG ORAL TABLET 1 po bid 3 days, then 1 po q day 3 days PREDNISONE 05583449502 No Longer Active Carlton Hu MD Active CEFDINIR 300 MG ORAL CAPSULE by mouth twice a day 2011 CEFDINIR 03269922363 No Longer Active Carlton Hu MD Acti ve CEFDINIR 300 MG ORAL CAPSULE by mouth twice a day 2010 CEFDINIR 25454419816 No Longer Active Carlton Hu MD Acti ve CEFDINIR 300 MG ORAL CAPSULE by mouth twice a day 2010 CEFDINIR 18199677033 No Longer Active Carlton Hu MD Acti ve TESSALON PERLES 100 MG ORAL CAPSULE 1 tablet by mouth 3 times daily as needed for cough BENZONATATE 88647189428 No Longer Active Carlton Hu MD Active CEFDINIR 300 MG ORAL CAPSULE by mouth twice a day 2010 CEFDINIR 49501617563 No Longer Active Carlton Hu MD Acti ve ZITHROMAX Z-REYNA 250 MG ORAL TABLET 2 today, then 1 daily for 4 d ays AZITHROMYCIN 30165923711 No Longer Active Hugo Restrepo MD Active TESSALON PERLES 100 MG ORAL CAPSULE 1 tablet by mouth 3 times daily as needed for cough TESSALON PERLES 100 MG ORAL CAPSULE 08551 7 BENZONATATE Inactive PREDNISONE 20 MG ORAL TABLET 1 po bid 3 days, then 1 po q day 3 days PREDNISONE 20 MG ORAL TABLET 627200 PREDNISONE Greer ctive LORTAB 7.5-500 MG/15ML ORAL [...] cough CHERATUSSIN AC 100-10 MG/5ML ORAL SYRUP 666378 GUAIFENESIN-CODEINE Inactive ACETAMINOPHEN-CODEINE #3 300-30 MG ORAL TABLET 1 tablet po q 4-6 hrs prn pain ACETAMINOPHEN-CODEINE #3 300-30 MG ORAL TABLET ACETAMINOPHEN-CODEINE Inactive HYDROCODONE-ACETAMINOPHEN 5-325 MG ORAL TABLET 1 po q 6hr PRN co ugh HYDROCODONE-ACETAMINOPHEN 5-325 MG ORAL TABLET 957045 HYDROCODONE-ACETAMINOPHEN Inactive AVELOX 400 MG ORAL TABLET 1 tab by mouth daily AVELOX 400 MG ORAL TABLET 919013 MOXIFLOXACIN HCL Inactive CHERATUSSIN AC 100-10 MG/5ML ORAL SYRUP 1 tsp by mouth every 4 hours as needed for cough CHERATUSSIN AC 100-10 MG/5ML ORAL SYRUP 9 01991 GUAIFENESIN-CODEINE Inactive TERBINAFINE HCL 250 MG ORAL TABLET 1 qDay 07/08 TERBINAFINE HCL 250 MG ORAL TABLET 017859 TERBINAFINE HCL Inactive CHERATUSSIN AC 100-10 MG/5ML ORAL SYRUP 1 tsp by mouth every 4 hours as needed for cough CHERATUSSIN AC 100-10 MG/5ML ORAL SYRUP 9 37994 GUAIFENESIN-CODEINE Inactive ACETAMINOPHEN-CODEINE #3 300-30 MG ORAL TABLET 1 PO Q 4-6 HRS OR N PAIN ACETAMINOPHEN-CODEINE #3 300-30 MG ORAL TABLET ACETAMINOPHEN-CODEINE Inactive CHERATUSSIN AC 100-10 MG/5ML ORAL SYRUP 1 tsp by mouth every 4 hours as needed for cough CHERATUSSIN AC 100-10 MG/5ML ORAL SYRUP 9 25140 GUAIFENESIN-CODEINE Inactive AUGMENTIN 875-125 MG ORAL TABLET 1 tab by mouth twice daily with food AUGMENTIN 875-125 MG ORAL TABLET 796264 AMOXICIL MADELINE-POT CLAVULANATE Inactive CHERATUSSIN AC 100-10 MG/5ML ORAL SYRUP take one tsp po Q 6h ours prn cough CHERATUSSIN AC 100-10 MG/5ML ORAL SYRUP 067878 GUAIFENESIN-CODEINE Inactive PROPRANOLOL HCL 60 MG ORAL TABLET 1 PO Q D PROPRANOLOL HCL 60 MG ORAL TABLET 997951 PROPRANOLOL HCL Inactive TOPAMAX 50 MG ORAL TABLET take 1 tab po BID for migraines. 07/02 TOPAMAX 50 MG ORAL TABLET 426964 TOPIRAMATE Inacti ve TOPAMAX 25 MG ORAL TABLET 1 qHS x 1 week, then 1 BID x 1 week, then 1 qAM and 2 qHS x 1 week, then 2 BID (migraine prevention) TOPAMAX 25 MG ORAL TABLET 373481 TOPIRAMATE Inactive LYRICA 75 MG ORAL CAPSULE TAKE 1 CAPSULE BY MOUTH TWICE DAILY LYRICA 75 MG ORAL CAPSULE PREGABALIN Inactive SYMBICORT 160-4.5 MCG/ACT INHALATION AEROSOL 2 puffs bid wit h rinse after SYMBICORT 160-4.5 MCG/ACT INHALATION AEROSOL BUDESONIDE- FORMOTEROL FUMARATE Inactive PROMETHAZINE-CODEINE 6.25-10 MG/5ML ORAL SYRUP 1 tsp b y mouth every 8 hours prn cough PROMETHAZINE-CODEINE 6.25-10 MG/ 5ML ORAL SYRUP 461164 PROMETHAZINE-CODEINE Inactive CYMBALTA 30 MG ORAL CAPSULE DELAYED RELEASE PARTICLES 1 cap by mouth daily CYMBALTA 30 MG ORAL CAPSULE DELAYED RELE ASE PARTICLES 481419 DULOXETINE HCL Inactive PREMARIN 0.625 MG ORAL TABLET TAKE 1 TAB BY MOUTH DAILY PREMARIN 0.625 MG ORAL TABLET ESTROGENS CONJUGATED Inactive CHERATUSSIN AC 100-10 MG/5ML ORAL SYRUP 1 tsp by mouth every 4 hours as needed for cough CHERATUSSIN AC 100-10 MG/5ML ORAL SYRUP 9 45159 GUAIFENESIN-CODEINE Inactive PROMETHAZINE-CODEINE 6.25-10 MG/5ML ORAL SYRUP 1 tsp b y mouth every 6 hours if needed for cough PROMETHAZINE-CODEINE 6.25-10 MG/5ML ORAL SYRUP 015546 PROMETHAZINE-CODEINE Inactive CHERATUSSIN AC 100-10 MG/5ML ORAL SYRUP 1 tsp by mouth every 4 hours as needed for cough CHERATUSSIN AC 100-10 MG/5ML ORAL SYRUP 9 47143 GUAIFENESIN-CODEINE Inactive FLUTICASONE PROPIONATE 50 MCG/ACT NASAL SUSPENSION 1 t o 2 sprays each nostril daily FLUTICASONE PROPIONATE 50 MCG/AC T NASAL SUSPENSION 1681912 FLUTICASONE PROPIONATE Inactive PREDNISONE 20 MG ORAL TABLET 3 tab PO qd x 2d, 2 tab P O qd x 2d, 1 tab PO qd x 2d, 1/2 tab PO qd x 2d PREDNISONE 20 MG ORAL TAB LET 795663 PREDNISONE Inactive LEVOFLOXACIN 500 MG ORAL TABLET 1 tab PO daily x 10 days LEVOFLOXACIN 500 MG ORAL TABLET 221264 LEVOFLOXACIN Inactive CYCLOBENZAPRINE HCL 10 MG ORAL TABLET 1 tablet by mouth BID prn had pain CYCLOBENZAPRINE HCL 10 MG ORAL TABLET 611315 CYCLOBENZAPRINE HCL Inactive ZOCOR 40 MG ORAL TABLET 1 tab by mouth daily 4 ZOCOR 40 MG ORAL TABLET 691050 SIMVASTATIN Inactive TUSSIONEX PENNKINETIC ER 10-8 MG/5ML [...] FLUTICASONE PROPIO EFE 50 MCG/ACT NASAL SUSPENSION 0622370 FLUTICASONE PROPIONATE Inactive TUSSIONEX PENNKINETIC ER 10-8 [...] three days PREDNISONE 20 MG ORAL TABLET 407240 PREDNIS ONE Inactive PROAIR HFA 108 (90 BASE) MCG/ACT INHALATION AEROSOL SO LUTION 2 puffs four times a day as needed PROAIR HFA 108 (90 B ASE) MCG/ACT INHALATION AEROSOL SOLUTION ALBUTEROL SULFATE Inactive ZITHROMAX Z-REYNA 250 MG ORAL TABLET 2 today, then 1 daily for 4 d ays ZITHROMAX Z-REYNA 250 MG ORAL TABLET 830014 AZITHROMYCIN Inactive CEFDINIR 300 MG ORAL CAPSULE by mouth twice a day 2010 CEFDINIR 300 MG ORAL CAPSULE 751490 CEFDINIR Inactive CEFDINIR 300 MG ORAL CAPSULE [...] 2-5 03/07/07 ZITHROMAX 250 MG ORAL TABLET 518187 AZITHROMYCIN Greer ctive CEFDINIR 300 MG ORAL CAPSULE by mouth twice a day 2011 CEFDINIR 300 MG ORAL CAPSULE 20020704 CEFDINIR Inactive PREDNISONE 20 MG ORAL TABLET 2 tabs daily for 3 days, 1 tab daily for 3 days, 1/2 tab daily for 2 days PREDNISONE 20 MG ORAL T ABLET 695699 PREDNISONE Inactive AVELOX 400 MG ORAL TABLET 1 tab by mouth daily AVELOX 400 MG ORAL TABLET 329150 MOXIFLOXACIN HCL Inactive AVELOX 400 MG ORAL TABLET 1 tab by mouth daily AVELOX 400 MG ORAL TABLET 882597 MOXIFLOXACIN HCL Inactive PREDNISONE 20 MG ORAL TABLET Take 3 tabs daily for 3 d ays, 2 tabs daily for 3 days, 1 tab daily for 3 days, 1/2 tab daily for 3 days 11/07 PREDNISONE 20 MG ORAL TABLET 373644 PREDNISONE Inactive LEVAQUIN 500 MG ORAL TABLET take one po QD LEVAQUIN 500 MG ORAL TABLET 252095 LEVOFLOXACIN Inactive AZITHROMYCIN 250 MG ORAL TABLET 2 po qd x 1 day, then 1 po q d x 4 days AZITHROMYCIN 250 MG ORAL TABLET 643313 AZITHROMY GIOVANNI Inactive MEDROL 4 MG ORAL TABLET THERAPY PACK 6 tabs on day 1, 5 tabs on day 2, 4 tabs on day 3, 3 tabs on day 4, 2 tabs on day 5, 1 tab on day 6 2013 MEDROL 4 MG ORAL TABLET THERAPY PACK 256606 METHYLPREDNISOLONE Greer ctive CHERATUSSIN AC 100-10 MG/5ML ORAL SYRUP 5ml po q6hr PRN Cough 20 13/04/14 CHERATUSSIN AC 100-10 MG/5ML ORAL SYRUP 726145 GUAIFENE SIN-CODEINE Inactive TRIAMCINOLONE ACETONIDE 0.1 % EXTERNAL CREAM apply three roger es daily prn rash TRIAMCINOLONE ACETONIDE 0.1 % EXTERNAL CREAM 101 4314 TRIAMCINOLONE ACETONIDE Inactive AZITHROMYCIN 250 MG ORAL TABLET 2 po qd x 1 day, then 1 po q d x 4 days AZITHROMYCIN 250 MG ORAL TABLET 521438 AZITHROMY GIOVANNI Inactive MEDROL 4 MG ORAL TABLET THERAPY PACK 6 pills x 1 day, then 5 pills x 1 day then 4 pills x 1 day, then 3 pills x 1 day, then 2 pills x 1 day, then 1 pill x 1 day, then stop MEDROL 4 MG ORAL TABLET THERAPY PACK 120954 METHYLPREDNISOLONE Inactive AMOXICILLIN 500 MG ORAL CAPSULE 1 tab by mouth 3 times daily x 10 days AMOXICILLIN 500 MG ORAL CAPSULE 799511 AMOXICILL IN Inactive AMOXICILLIN 500 MG ORAL CAPSULE 1 tab by mouth 3 times daily x 10 days AMOXICILLIN 500 MG ORAL CAPSULE 590836 AMOXICILL IN Inactive ZITHROMAX 250 MG ORAL TABLET 2 po today, then 1 po q days 2-5 20 12/08/14 ZITHROMAX 250 MG ORAL TABLET 911908 AZITHROMYCIN Greer ctive AUGMENTIN 875-125 MG ORAL TABLET 1 po BID x 10 days 20 13/01/20 AUGMENTIN 875-125 MG ORAL TABLET 269730 AMOXICILLIN-POT CLAVULANATE Inactive ZITHROMAX Z-REYNA 250 MG ORAL TABLET 2 today, then 1 daily for 4 d ays ZITHROMAX Z-REYNA 250 MG ORAL TABLET 552087 AZITHROMYCIN Inactive ZITHROMAX 250 MG ORAL TABLET 2 po today, then 1 po q days 2-5 20 14/03/21 ZITHROMAX 250 MG ORAL TABLET 870384 AZITHROMYCIN [place] ctive ZITHROMAX Z-REYNA 250 MG ORAL TABLET 2 today, then 1 daily for 4 d ays ZITHROMAX Z-REYNA 250 MG ORAL TABLET 457658 AZITHROMYCIN Inactive CEFDINIR 300 MG ORAL CAPSULE 1 po BID x 10 days 06/21 CEFDINIR 300 MG ORAL CAPSULE 20020704 CEFDINIR Inactive ZITHROMAX 250 MG ORAL TABLET 2 po today, then 1 po q days 2-5 20 13/08/10 ZITHROMAX 250 MG ORAL TABLET 424550 AZITHROMYCIN [place] ctive LEVAQUIN 500 MG ORAL TABLET 1 tablet by mouth daily 13/09/24 LEVAQUIN 500 MG ORAL TABLET 19971102 LEVOFLOXACIN Inactive SINGULAIR 10 MG ORAL TABLET 1 po qday for allergies 20 14/01/12 SINGULAIR 10 MG ORAL TABLET 20010504 MONTELUKAST SODIUM Inactive AMOXICILLIN 500 MG ORAL CAPSULE 2 po BID x 10 days 201 09/29/08 AMOXICILLIN 500 MG ORAL CAPSULE 163165 AMOXICILLIN Inactive PREDNISONE 20 MG ORAL TABLET 2 tabs daily for 3 days, 1 tab daily for 3 days, 1/2 tab daily for 2 days PREDNISONE 20 MG ORAL T ABLET 842514 PREDNISONE Inactive ZITHROMAX Z-REYNA 250 MG ORAL TABLET 2 today, then 1 daily for 4 d ays ZITHROMAX Z-REYNA 250 MG ORAL TABLET 011872 AZITHROMYCIN Inactive PREDNISONE 20 MG ORAL TABLET 2 tabs daily for 3 days, 1 tab daily for 3 days, 1/2 tab daily for 2 days PREDNISONE 20 MG ORAL T ABLET 721847 PREDNISONE Inactive ZITHROMAX 250 MG ORAL TABLET 2 po today, then 1 po q days 2-5 20 14/09/04 ZITHROMAX 250 MG ORAL TABLET 078951 AZITHROMYCIN Greer ctive AMOXICILLIN 500 MG ORAL CAPSULE 1 cap by mouth three times a day AMOXICILLIN 500 MG ORAL CAPSULE 749429 AMOXICILLIN Inactive TERBINAFINE HCL 250 MG ORAL TABLET 1 qDay for nail fungus 7 TERBINAFINE HCL 250 MG ORAL TABLET 931190 TERBINAFINE HCL Inact nael AUGMENTIN 875-125 MG ORAL TABLET 1 po BID x 10 days 16/03/22 AUGMENTIN 875-125 MG ORAL TABLET 360105 AMOXICILLIN-POT CLAVULANATE Inactive PREDNISONE 20 MG ORAL TABLET 2 po qd x 5 days PREDNISONE 20 MG ORAL TABLET 664954 PREDNISONE Inactive Vital Signs Date Name Value [...] - Chem istry sodium, serum 132 mmol/L 167-975 0276/07/12 potassium, serum 2.7 mmol/L 3.5-5.2 chloride, serum 93 mmol/L 98-107 carbon dioxide, venous blood 30.8 mmol/L 21.0-32 .0 blood glucose 107 mg/dL 65-110 calcium, serum 9.3 mg/dL 8.5-10.1 urea nitrogen, blood 12 mg/dL 7-18 creatinine, serum 1.00 mg/dL 0.60-1.30 sodium, serum 142 mmol/L 572-255 8948/07/17 potassium, serum 4.2 mmol/L 3.5-5.2 chloride, serum 106 mmol/L 98-107 carbon dioxide, venous blood 29.9 mmol/L 21.0-32 .0 blood glucose 108 mg/dL 65-110 calcium, serum 9.1 mg/dL 8.5-10.1 urea nitrogen, blood 11 mg/dL 7-18 creatinine, serum 0.81 mg/dL 0.60-1.30 Lab Report: Rapid Strep - Lab Microbial identification kit, rapid strep method Negative Negative Encounters Code Encounter Date Provider Facility CPT-45119 Level 3 Est. Patient 11:34:49 SYSTEM ADMINISTRATION MANAGER Perez Mora MD [facility] [place] CPT-04971 Level 4 Est. Patient 09:51:32 SYSTEM ADMINISTRATION MANAGER Carlton rich MD [facility] CPT-35104 Level 3 Est. Patient 10:26:00 SYSTEM ADMINISTRATION MANAGER Elise stephenson [facility]-04759 Level 3 Est. Patient 13:35:41 SYSTEM ADMINISTRATION MANAGER Carlton rich MD [facility] CPT-33624 Level 3 Est. Patient 10:03:52 SYSTEM ADMINISTRATION MANAGER Carlton rich MD [facility]-19839 Level 3 Est. Patient 12:17:50 CDT Hugo Restrepo MD [facility] CPT-99802 Level 3 Est. Patient 13:42:38 CDT Elise stephenson [facility] CPT-58137 Level 3 Est. Patient 13:23:51 CDT Diya cobian [facility] CPT-63047 Level 3 Est. Patient 14:22:19 SYSTEM ADMINISTRATION MANAGER Diya cobian [facility]-69858 Level 3 Est. Patient 10:11:46 CDT Carlton rich MD [facility] CPT-66641 Level 3 Est. Patient 17:29:43 CDT Elise Are ll [employer]ODUCTION [employer] [facility] CPT-70681 Level 3 Est. Patient 11:58:06 CDT Elise Are ll [employer] [facility] CPT-98452 Level 4 Est. Patient 14:36:51 CDT Carlton rich MD [facility] CPT-75650 Level 3 Est. Patient 18:16:00 SYSTEM ADMINISTRATION MANAGER Blaine Freeman [facility] CPT-87759 Level 3 Est. Patient 09:45:49 SYSTEM ADMINISTRATION MANAGER Carlton rich MD [facility] CPT-68032 Level 3 Est. Patient 13:19:20 CDT Carlton rich MD [facility]-25890 Level 3 Est. Patient 13:06:43 CDT Ridge tam DO [facility] CPT-95068 Level 3 Est. Patient 10:03:07 CDT Perez Mora MD [facility] CPT-20199 Level 3 Est. Patient 19:50:35 SYSTEM ADMINISTRATION MANAGER Carlton rich MD [facility] CPT-07375 Level 4 Est. Patient 18:05:01 SYSTEM ADMINISTRATION MANAGER Carlton rich MD [facility] CPT-55494 Level 3 Est. Patient 10:45:55 SYSTEM ADMINISTRATION MANAGER Hugo Restrepo MD [facility] CPT-25737 Level 3 Est. Patient 14:12:49 CDT Griffin lincoln [facility] CPT-61258 Level 3 Est. Patient 17:37:24 CDT Carlton rich MD [facility] CPT-28368 Level 3 Est. Patient 16:51:54 CDT Carlton rich MD [facility] CPT-87277 Level 3 Est. Patient 12:18:11 CDT Hugo Restrepo MD [facility] CPT-42423 Level 3 Est. Patient 11:30:25 CDT Marcy crisostomo MD PhD [facility] CPT-61740 Level 3 Est. Patient 12:00:47 SYSTEM ADMINISTRATION MANAGER Carlton rich MD [facility] CPT-25388 Level 3 Est. Patient 16:31:06 SYSTEM ADMINISTRATION MANAGER Carlton rich MD [facility] CPT-29371 Level 3 Est. Patient 16:23:24 SYSTEM ADMINISTRATION MANAGER Ridge tam [facility] CPT-16229 Level 3 Est. Patient 12:34:12 CDT Carlton rich MD [facility] CPT-79529 Level 2 Est. Patient 15:43:33 CDT Robi armstrong MD [facility] CPT-23887 Level 4 Est. Patient 14:04:44 CDT Carlton rich MD [facility] CPT-66901 Level 3 Est. Patient 05:47:59 CDT Ridge tam [facility] CPT-89708 Level 3 Est. Patient 13:12:53 SYSTEM ADMINISTRATION MANAGER Carlton rich MD [facility] CPT-56734 Level 3 Est. Patient 14:26:53 CDT Hugo [...] CPT-J1100 Decadron 6mg (Dexamethasone) 14:32:13 CDT 2 CPT-83433 Hip bilat min 2V w AP pelvis 13:16:20 CDT 2 CPT-13414 Pelvis only 13:07:33 CDT CPT-01073 Spec Collection and Handling Fee 11:25:12 C DT CPT-61152 Fluzone Quadrivalent Intramuscular Suspe nsion 0.5 ML 14:31:55 CDT CPT-62137 Abx/Therapy Injection 13:28:47 SYSTEM ADMINISTRATION MANAGER CPT-J2930 Solu Medrol 125 mg (Methyl Prednisolone Sodium Succinate) 12:00:47 SYSTEM ADMINISTRATION MANAGER CPT-26921 Venipuncture Draw Fee 11:33:31 CDT CPT-16225 EKG Trac and Interp 11:21:09 CDT CPT-95025 Chest 2V Frontal and Lat 11:21:09 CDT 12/15 CPT-20060 Venipuncture Draw Fee 08:02:34 CDT CPT-71066 Chest 2V Frontal and Lat 05:47:59 CDT 06/05
--- OUTSIDE RECORDS SUMMARY | 2019-10-08 09:38 | XMS REPORT | Clinical Summary ---
[...] po daily for Allergy 6 MONTELUKAST SODIUM [id number] Active ALFREDO Holly Act nael TUSSIONEX PENNKINETIC ER 10-8 MG/5ML LQCR 5 ml twice a day a s needed for cough HYDROCOD POLST-CHLORPHEN POLST 12682478523 Active Hugo Restrepo MD Active TUSSIONEX PENNKINETIC ER 10-8 MG/5ML LQCR 5ml po q12hr PRN Cough HYDROCOD POLST-CHLORPHEN POLST 49497810752 No Longer Active Hugo Restrepo MD Active GABAPENTIN 100 MG CAPS 1 po BID for fibromyalgia GABAPENTIN 87076801398 Active Elise Whitmore APRN Active LYRICA 100 MG CAPS Take 1 tab po BID for fibromyalgia PREGABALIN 83783279231 No Longer Active Elise Whitmore APRN Acti ve PROAIR HFA 108 (90 BASE) MCG/ACT AERS 2 puffs four times a d ay as needed ALBUTEROL SULFATE 33328488093 Active Diya De Guzman APR N Active MUCINEX DM MAXIMUM STRENGTH 60-1200 MG [id number] 1 tab po q am 2016 DEXTROMETHORPHAN-GUAIFENESIN 45640390067 Active Diya De Guzman PRENATAL TEACHER Active PREDNISONE 20 MG TAB 2 tabs daily for 3 days, 1 t ab daily for 3 days, 1/2 tab daily for 2 days PREDNISONE 78583820991 No Longer Active Diya De Guzman PRENATAL TEACHER Active TUSSIONEX PENNKINETIC ER 10-8 MG/5ML ORAL LQCR 5 mL PO q 12 hrs PRN cough HYDROCOD POLST-CHLORPHEN POLST 18713364283 No Longer Active Diya Guerrerol PRENATAL TEACHER Active FLUTICASONE PROPIONATE 50 MCG/ACT SUSP 2 sprays each n ostril daily until bottle is empty FLUTICASONE PROPIONATE 27605354221 No Longer Ac tive Diya Guerrerol PRENATAL TEACHER Active ASMANEX 60 METERED DOSES 220 MCG/INH AEPB 1 puff bid with ri nse after MOMETASONE FUROATE 26340217847 No Longer Active Diya Saeed ell PRENATAL TEACHER Active ZITHROMAX Z-REYNA 250 MG TABS 2 today, then 1 daily for 4 days 201 09/29/14 AZITHROMYCIN 10003727592 No Longer Active Elise Whitmore APRN Active TUSSIONEX PENNKINETIC ER 10-8 MG/5ML LQCR 5ml po q12hr PRN Cough HYDROCOD POLST-CHLORPHEN POLST 52728634541 No Longer Active Elise Whitmore APRN Active MUCINEX D 60-600 MG [id number] 1 tab po q am PSEUDOEPHEDRINE-GUAIFENESIN 51048232628 Active Jillina Frazell PRENATAL TEACHER Active PREDNISONE 20 MG TAB 2 tabs daily for 3 days, 1 t ab daily for 3 days, 1/2 tab daily for 2 days PREDNISONE 21478959736 No Longer Active Jillina Frazell PRENATAL TEACHER Active AMOXICILLIN 500 MG CAPS 2 po BID x 10 days AMOX ICILLIN 28243630099 No Longer Active Jillina Frazell PRENATAL TEACHER Active SINGULAIR 10 MG TABS 1 po qday for allergies 2 MONTELUKAST SODIUM 20910470975 No Longer Active Carlton Hu MD Acti ve LEVAQUIN 500 MG TAB 1 tablet by mouth daily LEV OFLOXACIN 72263283406 No Longer Active Carlton Hu MD Active FLUTICASONE PROPIONATE 50 MCG/ACT SUSP 2 sprays each n ostril daily for 2 weeks, then 1 spray each nostril daily. FLUTICASONE PRO PIONATE 84648666027 Active Elise Whitmore APRN Active ZITHROMAX 250 MG TAB 2 po today, then 1 po q days 2-5 AZITHROMYCIN 31301478897 No Longer Active Elise Whitmore APRN Acti ve XANAX 0.5 MG TABS one tablet by mouth daily prn anxiety ALPRAZOLAM 73773902204 Active Elise Whitmore APRN Active CYMBALTA 30 MG CPEP 1 cap by mouth daily for depression DULOXETINE HCL 29936581524 Active Carlton Hu MD Active CEFDINIR 300 MG CAPS 1 po BID x 10 days CEFDINI R 47997695959 No Longer Active Carlton Hu MD Active ZOCOR 40 MG TAB 1 tab by mouth daily SIMVASTATI N 90330102479 No Longer Active Carlton Hu MD Active CYCLOBENZAPRINE HCL 10 MG TABS 1 tablet by mouth BID prn had cherelle n CYCLOBENZAPRINE HCL 29730088823 No Longer Active Carlton Hu MD Active LEVOFLOXACIN 500 MG ORAL TABS 1 tab PO daily x 10 days LEVOFLOXACIN 10550674704 No Longer Active Carlton Hu MD Acti ve PREDNISONE 20 MG ORAL TABS 3 tab PO qd x 2d, 2 tab PO qd x 2d, 1 tab PO qd x 2d, 1/2 tab PO qd x 2d PREDNISONE 33689471179 No Longer Active Carlton Hu MD Active FLUTICASONE PROPIONATE 50 MCG/ACT SUSP 1 to 2 sprays each no stril daily FLUTICASONE PROPIONATE 75287102454 No Longer Active T jaz HERNANDEZ Active CHERATUSSIN AC 100-10 MG/5ML SYRP 1 tsp by mouth every 4 hours as needed for cough GUAIFENESIN-CODEINE 17482127564 No Longer Activ e Blaine HERNANDEZ Active PROMETHAZINE-CODEINE 6.25-10 MG/5ML SYRP 1 tsp by mout h every 6 hours if needed for cough PROMETHAZINE-CODEINE 75595891025 No Long er Active Blaine HERNANDEZ Active CHERATUSSIN AC 100-10 MG/5ML SYRP 1 tsp by mouth every 4 hours as needed for cough GUAIFENESIN-CODEINE 63479857975 No Longer Activ e Blaine HERNANDEZ Active ZITHROMAX Z-REYNA 250 MG TABS 2 today, then 1 daily for 4 days 201 08/30/03 AZITHROMYCIN 07337847849 No Longer Active Columba Raida Act nael ZITHROMAX 250 MG TAB 2 po today, then 1 po q days 2-5 AZITHROMYCIN 61049082178 No Longer Active Carlton Hu MD Acti ve ZITHROMAX Z-REYNA 250 MG TABS 2 today, then 1 daily for 4 days 201 08/07/20 AZITHROMYCIN 36517224600 No Longer Active Columba Raida Act nael AUGMENTIN 875-125 MG TAB 1 po BID x 10 days AMOXICILLIN- POT CLAVULANATE 95880636639 No Longer Active Diya Sernabrayan RICEN Active ZITHROMAX 250 MG TAB 2 po today, then 1 po q days 2-5 AZITHROMYCIN 92532423602 No Longer Active Carlton Hu MD Acti ve TRAMADOL HCL 50 MG TABS 1 po tid with ES Tylenol TRAMADOL HCL 20897510412 Active Carlton Hu MD Active PREMARIN 0.625 MG TABS TAKE 1 TAB BY MOUTH DAILY 07/25 ESTROGENS CONJUGATED 62599628450 No Longer Active Ridge Bess DO Active CYMBALTA 30 MG CPEP 1 cap by mouth daily DULOXE SNEHA HCL 23666326474 No Longer Active Ridge Bess DO Active AMOXICILLIN 500 MG CAP 1 tab by mouth 3 times daily x 10 days 20 14/04/28 AMOXICILLIN 44307866088 No Longer Active Carlton Hu MD Active AMOXICILLIN 500 MG CAP 1 tab by mouth 3 times daily x 10 days 20 13/03/08 AMOXICILLIN 32157208145 No Longer Active Carlton Hu MD Active PROMETHAZINE-CODEINE 6.25-10 MG/5ML SYRP 1 tsp by mouth ever y 8 hours prn cough PROMETHAZINE-CODEINE 36884086270 No Longer Active Robert Hu MD Active MEDROL (REYNA) 4 MG TABS 6 pills x 1 day, then 5 pill s x 1 day then 4 pills x 1 day, then 3 pills x 1 day, then 2 pills x 1 day, then 1 pill x 1 day, then stop METHYLPREDNISOLONE 35069279647 No Longer Active Parris Mora MD Active AZITHROMYCIN 250 MG TABS 2 po qd x 1 day, then 1 po qd x 4 days AZITHROMYCIN 64931297670 No Longer Active Perez Mora MD Active SYMBICORT 160-4.5 MCG/ACT AERO 2 puffs bid with rinse after 2011 BUDESONIDE-FORMOTEROL FUMARATE 27460559396 No Longer Active Perez Mora MD Active LYRICA 75 MG CAPS TAKE 1 CAPSULE BY MOUTH TWICE DAILY 2013 PREGABALIN 36566713756 No Longer Active Carlton Hu MD Active TOPAMAX 25 MG TABS 1 qHS x 1 week, then 1 BID x 1 week, then 1 qAM and 2 qHS x 1 week, then 2 BID (migraine prevention) TOPIRAMAT E 57376214783 No Longer Active Jerica FUENTES Active TOPAMAX 50 MG TABS take 1 tab po BID for migraines. 12/07/10 TOPIRAMATE 26210316100 No Longer Active Jerica Osei RMA Ac tive TOPAMAX 100 MG TABS Take 1 tablet po bid TOPIRAMATE 4999 6118477 Active Elise Whitmore APRN Active TRIAMCINOLONE ACETONIDE 0.1 % CREA apply three times daily prn r beatrice TRIAMCINOLONE ACETONIDE 38124978345 No Longer Active Carlton Hu MD Active PAXIL 40 MG TAB take 1 tab po qday for depression PAROXETINE HCL 09918601563 Active Elise Whitmore APRN Active CHERATUSSIN AC 100-10 MG/5ML SYRP 5ml po q6hr PRN Cough GUAIFENESIN-CODEINE 26299705970 No Longer Active Carlton Hu MD Active MEDROL (REYNA) 4 MG TABS 6 tabs on day 1, 5 tabs on d ay 2, 4 tabs on day 3, 3 tabs on day 4, 2 tabs on day 5, 1 tab on day 6 METHYLPREDNISOLONE 89389086368 No Longer Active Perez Mora MD Active AZITHROMYCIN 250 MG TABS 2 po qd x 1 day, then 1 po qd x 4 days AZITHROMYCIN 53592156955 No Longer Active Perez Mora MD Active PROPRANOLOL HCL 60 MG TABS 1 PO Q D PROPRANOL OL HCL 57417267260 No Longer Active Perez Mora MD Active CHERATUSSIN AC 100-10 MG/5ML SYRP take one tsp po Q 6hours prn c ough GUAIFENESIN-CODEINE 05490090461 No Longer Active Perez Means Active AUGMENTIN 875-125 MG TAB 1 tab by mouth twice daily with food 20 12/03/31 AMOXICILLIN-POT CLAVULANATE 59687690094 No Longer Active Chanel Mora MD Active CHERATUSSIN AC 100-10 MG/5ML SYRP 1 tsp by mouth every 4 hours as needed for cough GUAIFENESIN-CODEINE 44718255780 No Longer Activ e Hugo Restrepo MD Active ACETAMINOPHEN-CODEINE #3 300-30 MG TABS 1 PO Q 4-6 HRS PRN PAIN ACETAMINOPHEN-CODEINE 68203625781 No Longer Active Hugo Restrepo MD Active LEVAQUIN 500 MG TABS take one po QD LEVOFLOXACI N 69092937684 No Longer Active Griffin HERNANDEZ Active PREDNISONE 20 MG TAB Take 3 tabs daily for 3 days , 2 tabs daily for 3 days, 1 tab daily for 3 days, 1/2 tab daily for 3 days P REDNISONE 82038608090 No Longer Active Carlton Hu MD Active AVELOX 400 MG TABS 1 tab by mouth daily MOXIFLO XACIN HCL 85468768121 No Longer Active Carlton Hu MD Active CHERATUSSIN AC 100-10 MG/5ML SYRP 1 tsp by mouth every 4 hours as needed for cough GUAIFENESIN-CODEINE 39603575305 No Longer Activ e Hugo Restrepo MD Active AVELOX 400 MG TABS 1 tab by mouth daily MOXIFLO XACIN HCL 09634052303 No Longer Active Marcy De La Rosa MD PhD Active TERBINAFINE HCL 250 MG TABS 1 qDay TERBINAF INE HCL 67546274626 No Longer Active Marcy De La Rosa MD PhD Active CHERATUSSIN AC 100-10 MG/5ML SYRP 1 tsp by mouth every 4 hours as needed for cough GUAIFENESIN-CODEINE 15137313739 No Longer Activ e Marcy De La Rosa MD PhD Active AVELOX 400 MG TABS 1 tab by mouth daily MOXIFLO XACIN HCL 38408863911 No Longer Active Marcy De La Rosa MD PhD Active HYDROCODONE-ACETAMINOPHEN 5-325 MG TABS 1 po q 6hr PRN cough 201 05/09/16 HYDROCODONE-ACETAMINOPHEN 31778722005 No Longer Active Marcy De La Rosa MD PhD Active PREDNISONE 20 MG TAB 2 tabs daily for 3 days, 1 t ab daily for 3 days, 1/2 tab daily for 2 days PREDNISONE 66641667739 No Longer Active Carlton Hu MD Active CEFDINIR 300 MG CAPS by mouth twice a day CEFDI ODILIA 52366895733 No Longer Active Carlton Hu MD Active HYDROCHLOROTHIAZIDE 25 MG TABS 1 TAB PO DAILY H YDROCHLOROTHIAZIDE 41954962588 Active Carlton Hu MD Active ACETAMINOPHEN-CODEINE #3 300-30 MG TABS 1 tablet po q 4-6hrs prn pain ACETAMINOPHEN-CODEINE 61407627987 No Longer Active Ridge Bess DO Active ZITHROMAX 250 MG TAB 2 po today, then 1 po q days 2-5 AZITHROMYCIN 71183384888 No Longer Active Carlton Hu MD Acti ve CHERATUSSIN AC 100-10 MG/5ML SYRP take 1 tsp po q4-6 hours prn c ough GUAIFENESIN-CODEINE 14831424344 No Longer Active Carlton Hu MD Active ACETAMINOPHEN-CODEINE #3 300-30 MG TABS 1 PO Q 4-6 HR PRN PAIN 2 ACETAMINOPHEN-CODEINE 83722389044 No Longer Active Carlton rich MD Active LORTAB 7.5-500 MG/15ML ELIX 7.5 ml po q 4 hour prn cough HYDROCODONE-ACETAMINOPHEN 56803943604 No Longer Active Carlton Hu MD Active PREDNISONE 20 MG TAB 1 po bid 3 days, then 1 po q day 3 days 201 05/03/07 PREDNISONE 15165764655 No Longer Active Carlton Hu MD Active ELMIRON 100 MG CAPS 2 tablets in the am and 1 tablet at hs PENTOSAN POLYSULFATE SODIUM 43390100353 Active Carlton Hu MD Ac tive CEFDINIR 300 MG CAPS by mouth twice a day CEFDI ODILIA 46141472734 No Longer Active Carlton Hu MD Active CEFDINIR 300 MG CAPS by mouth twice a day CEFDI ODILIA 27471103034 No Longer Active Carlton Hu MD Active CEFDINIR 300 MG CAPS by mouth twice a day CEFDI ODILIA 76950902813 No Longer Active Carlton Hu MD Active TESSALON PERLES 100 MG CAP 1 tablet by mouth 3 times daily a s needed for cough BENZONATATE 63351170228 No Longer Active Carlton bustamante MD Active CEFDINIR 300 MG CAPS by mouth twice a day CEFDI ODILIA 03465600449 No Longer Active Carlton Hu MD Active ZITHROMAX Z-REYNA 250 MG TABS 2 today, then 1 daily for 4 days 201 04/09/17 AZITHROMYCIN 08276365397 No Longer Active Hugo Restrepo MD Active TESSALON PERLES 100 MG CAP 1 tablet by mouth 3 times daily a s needed for cough TESSALON PERLES 100 MG CAP 204909 BENZONATATE I nactive PREDNISONE 20 MG TAB 1 po bid 3 days, then 1 po q day 3 days 201 05/03/07 PREDNISONE 20 MG TAB 962578 PREDNISONE Inactive LORTAB 7.5-500 MG/15ML ELIX 7.5 ml po q 4 hour prn cough LORTAB 7.5-500 MG/15ML ELIX HYDROCODONE-ACETAMINOPHEN Inacti ve ACETAMINOPHEN-CODEINE #3 300-30 MG TABS 1 PO Q 4-6 HR PRN PAIN 2 ACETAMINOPHEN-CODEINE #3 300-30 MG TABS ACETAMIN OPHEN-CODEINE Inactive CHERATUSSIN AC 100-10 MG/5ML SYRP take 1 tsp po q4-6 hours prn c ough CHERATUSSIN AC 100-10 MG/5ML SYRP 188863 GUAIFENESIN-CO DEINE Inactive ACETAMINOPHEN-CODEINE #3 300-30 MG TABS 1 tablet po q 4-6hrs prn pain ACETAMINOPHEN-CODEINE #3 300-30 MG TABS ACETAMIN OPHEN-CODEINE Inactive HYDROCODONE-ACETAMINOPHEN 5-325 MG TABS 1 po q 6hr PRN cough 201 05/09/16 HYDROCODONE-ACETAMINOPHEN 5-325 MG TABS 253555 HYDROCODONE-ACETAMINOPHEN Inactive AVELOX 400 MG TABS 1 tab by mouth daily A VELOX 400 MG TABS 191777 MOXIFLOXACIN HCL Inactive CHERATUSSIN AC 100-10 MG/5ML SYRP 1 tsp by mouth every 4 hours as needed for cough CHERATUSSIN AC 100-10 MG/5ML SYRP 448041 GUAIFENESIN-CODEINE Inactive TERBINAFINE HCL 250 MG TABS 1 qDay TERBINAFINE HCL 250 MG TABS 835832 TERBINAFINE HCL Inactive CHERATUSSIN AC 100-10 MG/5ML SYRP 1 tsp by mouth every 4 hours as needed for cough CHERATUSSIN AC 100-10 MG/5ML SYRP 000934 GUAIFENESIN-CODEINE Inactive ACETAMINOPHEN-CODEINE #3 300-30 MG TABS 1 PO Q 4-6 HRS PRN PAIN ACETAMINOPHEN-CODEINE #3 300-30 MG TABS ACETAMINOPHEN-CODEIN E Inactive CHERATUSSIN AC 100-10 MG/5ML SYRP 1 tsp by mouth every 4 hours as needed for cough CHERATUSSIN AC 100-10 MG/5ML SYRP 048065 GUAIFENESIN-CODEINE Inactive AUGMENTIN 875-125 MG TAB 1 tab by mouth twice daily with food 20 12/03/31 AUGMENTIN 875-125 MG TAB 480433 AMOXICILLIN-POT CLAVULA EFE Inactive CHERATUSSIN AC 100-10 MG/5ML SYRP take one tsp po Q 6hours prn c ough CHERATUSSIN AC 100-10 MG/5ML SYRP 035308 GUAIFENESIN-CO DEINE Inactive PROPRANOLOL HCL 60 MG TABS 1 PO Q D P ROPRANOLOL HCL 60 MG TABS 325858 PROPRANOLOL HCL Inactive TOPAMAX 50 MG TABS take 1 tab po BID for migraines. 12/07/10 TOPAMAX 50 MG TABS 961272 TOPIRAMATE Inactive TOPAMAX 25 MG TABS 1 qHS x 1 week, then 1 BID x 1 week, then 1 qAM and 2 qHS x 1 week, then 2 BID (migraine prevention) TOPAMAX 2 5 MG TABS 073516 TOPIRAMATE Inactive LYRICA 75 MG CAPS TAKE 1 CAPSULE BY MOUTH TWICE DAILY LYRICA 75 MG CAPS PREGABALIN Inactive SYMBICORT 160-4.5 MCG/ACT AERO 2 puffs bid with rinse after 2011 SYMBICORT 160-4.5 MCG/ACT AERO BUDESONIDE-FORMOT SÁNCHEZ FUMARATE Inactive PROMETHAZINE-CODEINE 6.25-10 MG/5ML SYRP 1 tsp by mouth ever y 8 hours prn cough PROMETHAZINE-CODEINE 6.25-10 MG/5ML SYRP 754279 PROMETHAZINE-CODEINE Inactive CYMBALTA 30 MG CPEP 1 cap by mouth daily CYMBALTA 30 MG CPEP 470200 DULOXETINE HCL Inactive PREMARIN 0.625 MG TABS TAKE 1 TAB BY MOUTH DAILY 07/25 PREMARIN 0.625 MG TABS ESTROGENS CONJUGATED Inactive CHERATUSSIN AC 100-10 MG/5ML SYRP 1 tsp by mouth every 4 hours as needed for cough CHERATUSSIN AC 100-10 MG/5ML SYRP 603638 GUAIFENESIN-CODEINE Inactive PROMETHAZINE-CODEINE 6.25-10 MG/5ML SYRP 1 tsp by mout h every 6 hours if needed for cough PROMETHAZINE-CODEINE 6.25-10 MG/5ML SYRP 881103 PROMETHAZINE-CODEINE Inactive CHERATUSSIN AC 100-10 MG/5ML SYRP 1 tsp by mouth every 4 hours as needed for cough CHERATUSSIN AC 100-10 MG/5ML SYRP 964156 GUAIFENESIN-CODEINE Inactive FLUTICASONE PROPIONATE 50 MCG/ACT SUSP 1 to 2 sprays each no stril daily FLUTICASONE PROPIONATE 50 MCG/ACT SUSP 9978949 FLUTICASONE PROPIONATE Inactive PREDNISONE 20 MG ORAL TABS 3 tab PO qd x 2d, 2 tab PO qd x 2d, 1 tab PO qd x 2d, 1/2 tab PO qd x 2d PREDNISONE 20 MG ORAL TABS 304036 PREDNISONE Inactive LEVOFLOXACIN 500 MG ORAL TABS 1 tab PO daily x 10 days LEVOFLOXACIN 500 MG ORAL TABS 502157 LEVOFLOXACIN Inactive CYCLOBENZAPRINE HCL 10 MG TABS 1 tablet by mouth BID prn had cherelle n CYCLOBENZAPRINE HCL 10 MG TABS 291166 CYCLOBENZAPRINE H CL Inactive ZOCOR 40 MG TAB 1 tab by mouth daily ZOCOR 40 M G TAB 595967 SIMVASTATIN Inactive TUSSIONEX PENNKINETIC ER 10-8 MG/5ML [...] empty FLUTICASONE PROPIONATE 50 MCG/ACT SUSP 17 61252 FLUTICASONE PROPIONATE Inactive TUSSIONEX PENNKINETIC ER 10-8 [...] 201 04/09/17 ZITHROMAX Z-REYNA 250 MG TABS 4682717 AZITHROMYCIN Inac tive CEFDINIR 300 MG CAPS by mouth twice a day CEFDINIR 300 MG CAPS 20020704 CEFDINIR Inactive CEFDINIR 300 MG CAPS by mouth twice a day CEFDINIR 300 MG CAPS 20020704 CEFDINIR Inactive CEFDINIR 300 MG CAPS by mouth twice a day CEFDINIR 300 MG CAPS 146533 CEFDINIR Inactive CEFDINIR 300 MG CAPS by mouth twice a day CEFDINIR 300 MG CAPS 20020704 CEFDINIR Inactive ZITHROMAX 250 MG TAB 2 po today, then 1 po q days 2-5 ZITHROMAX 250 MG TAB 4894735 AZITHROMYCIN Inactive CEFDINIR 300 MG CAPS by mouth twice a day CEFDINIR 300 MG CAPS 419154 CEFDINIR Inactive PREDNISONE 20 MG TAB 2 tabs daily for 3 days, 1 t ab daily for 3 days, 1/2 tab daily for 2 days PREDNISONE 20 MG TAB 216741 PREDNISON E Inactive AVELOX 400 MG TABS 1 tab by mouth daily A VELOX 400 MG TABS 412738 MOXIFLOXACIN HCL Inactive AVELOX 400 MG TABS 1 tab by mouth daily A VELOX 400 MG TABS 477752 MOXIFLOXACIN HCL Inactive PREDNISONE 20 MG TAB Take 3 tabs daily for 3 days , 2 tabs daily for 3 days, 1 tab daily for 3 days, 1/2 tab daily for 3 days PREDNISONE 20 MG TAB 106486 PREDNISONE Inactive LEVAQUIN 500 MG TABS take one po QD LEVAQUIN 50 0 MG TABS 525453 LEVOFLOXACIN Inactive AZITHROMYCIN 250 MG TABS 2 po qd x 1 day, then 1 po qd x 4 days AZITHROMYCIN 250 MG TABS 8228820 AZITHROMYCIN Inactiv e MEDROL (REYNA) 4 MG TABS 6 tabs on day 1, 5 tabs on d ay 2, 4 tabs on day 3, 3 tabs on day 4, 2 tabs on day 5, 1 tab on day 6 MEDROL (REYNA) 4 MG TABS 892263 METHYLPREDNISOLONE Inactive CHERATUSSIN AC 100-10 MG/5ML SYRP 5ml po q6hr PRN Cough CHERATUSSIN AC 100-10 MG/5ML SYRP 133708 GUAIFENESIN-CODEINE Inacti ve TRIAMCINOLONE ACETONIDE 0.1 % CREA apply three times daily prn r beatrice TRIAMCINOLONE ACETONIDE 0.1 % CREA 7271169 TRIAMCINOLONE ACETONIDE Inactive AZITHROMYCIN 250 MG TABS 2 po qd x 1 day, then 1 po qd x 4 days AZITHROMYCIN 250 MG TABS 9599937 AZITHROMYCIN Inactiv e MEDROL (REYNA) 4 MG TABS 6 pills x 1 day, then 5 pill s x 1 day then 4 pills x 1 day, then 3 pills x 1 day, then 2 pills x 1 day, then 1 pill x 1 day, then stop MEDROL (REYNA) 4 MG TABS 410545 METHYLPREDNISOLONE Inactive AMOXICILLIN 500 MG CAP 1 tab by mouth 3 times daily x 10 days 20 13/03/08 AMOXICILLIN 500 MG CAP 146294 AMOXICILLIN Inactive AMOXICILLIN 500 MG CAP 1 tab by mouth 3 times daily x 10 days 20 14/04/28 AMOXICILLIN 500 MG CAP 674898 AMOXICILLIN Inactive ZITHROMAX 250 MG TAB 2 po today, then 1 po q days 2-5 ZITHROMAX 250 MG TAB 1613156 AZITHROMYCIN Inactive AUGMENTIN 875-125 MG TAB 1 po BID x 10 days AUGMENTIN 875- 125 MG TAB 655081 AMOXICILLIN-POT CLAVULANATE Inactive ZITHROMAX Z-REYNA 250 MG TABS 2 today, then 1 daily for 4 days 201 08/07/20 ZITHROMAX Z-REYNA 250 MG TABS 7320988 AZITHROMYCIN Inac tive ZITHROMAX 250 MG TAB 2 po today, then 1 po q days 2-5 ZITHROMAX 250 MG TAB 2514927 AZITHROMYCIN Inactive ZITHROMAX Z-REYNA 250 MG TABS 2 today, then 1 daily for 4 days 201 08/30/03 ZITHROMAX Z-REYNA 250 MG TABS 0890582 AZITHROMYCIN Inac tive CEFDINIR 300 MG CAPS 1 po BID x 10 days C EFDINIR 300 MG CAPS 838252 CEFDINIR Inactive ZITHROMAX 250 MG TAB 2 po today, then 1 po q days 2-5 ZITHROMAX 250 MG TAB 6879368 AZITHROMYCIN Inactive LEVAQUIN 500 MG TAB 1 tablet by mouth daily LEVAQUIN 500 MG TAB 315690 LEVOFLOXACIN Inactive SINGULAIR 10 MG TABS 1 po qday for allergies 2 SINGULAIR 10 MG TABS 20010504 MONTELUKAST SODIUM Inactive AMOXICILLIN 500 MG CAPS 2 po BID x 10 days AMOXICILLIN 500 MG CAPS 437220 AMOXICILLIN Inactive PREDNISONE 20 MG TAB 2 tabs daily for 3 days, 1 t ab daily for 3 days, 1/2 tab daily for 2 days PREDNISONE 20 MG TAB 714793 PREDNISON E Inactive ZITHROMAX Z-REYNA 250 MG TABS 2 today, then 1 daily for 4 days 201 09/29/14 ZITHROMAX Z-REYNA 250 MG TABS 3885526 AZITHROMYCIN Inac tive PREDNISONE 20 MG TAB 2 tabs daily for 3 days, 1 t ab daily for 3 days, 1/2 tab daily for 2 days PREDNISONE 20 MG TAB 944870 PREDNISON E Inactive Vital Signs Date Name [...] Negative Encounters Code Encounter Date Provider Facility CPT-70405 Level 3 Est. Patient 12:17:50 CDT Hugo Restrepo MD [facility] CPT-83409 Level 3 Est. Patient 13:42:38 CDT Italo [facility] CPT-37181 Level 3 Est. Patient 13:23:51 CDT Diya cobian [facility] CPT-65716 Level 3 Est. Patient 14:22:19 LOCKSTITCH TUNNEL ELASTIC OPERATOR Diya cobian [facility] CPT-26346 Level 3 Est. Patient 10:11:46 CDT Carlton rich MD [facility] CPT-14311 Level 3 Est. Patient 17:29:43 CDT Italo [facility]-45206 Level 3 Est. Patient 11:58:06 CDT Italo [facility] CPT-96827 Level 4 Est. Patient 14:36:51 CDT Carlton rich MD [facility]-33355 Level 3 Est. Patient 18:16:00 LOCKSTITCH TUNNEL ELASTIC OPERATOR Blaine Freeman [facility] CPT-94895 Level 3 Est. Patient 09:45:49 LOCKSTITCH TUNNEL ELASTIC OPERATOR Carlton rich MD [facility]-53402 Level 3 Est. Patient 13:19:20 CDT Carlton rich MD [facility]-48680 Level 3 Est. Patient 13:06:43 CDT Ridge tam DO [facility] CPT-87531 Level 3 Est. Patient 10:03:07 CDT Perez Mora MD [facility]-55128 Level 3 Est. Patient 19:50:35 LOCKSTITCH TUNNEL ELASTIC OPERATOR Carlton rich MD [facility] CPT-62126 Level 4 Est. Patient 18:05:01 LOCKSTITCH TUNNEL ELASTIC OPERATOR Carlton rich MD [facility] CPT-46072 Level 3 Est. Patient 10:45:55 LOCKSTITCH TUNNEL ELASTIC OPERATOR Huog Restrepo MD [facility] CPT-49028 Level 3 Est. Patient 14:12:49 CDT Griffin lincoln [facility]-11176 Level 3 Est. Patient 17:37:24 CDT Carlton rich MD [facility]-95561 Level 3 Est. Patient 16:51:54 CDT Carlton rich MD [facility]-94393 Level 3 Est. Patient 12:18:11 CDT Hugo Restrepo MD [facility]-30887 Level 3 Est. Patient 11:30:25 CDT Marcy crisostomo MD PhD [facility] CPT-62270 Level 3 Est. Patient 12:00:47 LOCKSTITCH TUNNEL ELASTIC OPERATOR Carlton rich MD [facility] CPT-81333 Level 3 Est. Patient 16:31:06 LOCKSTITCH TUNNEL ELASTIC OPERATOR Carlton rich MD [facility] CPT-55672 Level 3 Est. Patient 16:23:24 LOCKSTITCH TUNNEL ELASTIC OPERATOR Ridge tam [facility] CPT-81623 Level 3 Est. Patient 12:34:12 CDT Carlton rich MD [facility] CPT-27177 Level 2 Est. Patient 15:43:33 CDT Robi armstrong MD [facility] CPT-47058 Level 4 Est. Patient 14:04:44 CDT Carlton rich MD [facility] CPT-37299 Level 3 Est. Patient 05:47:[address] [facility] CPT-47107 Level 3 Est. Patient 13:12:53 LOCKSTITCH TUNNEL ELASTIC OPERATOR Carlton rich MD [facility] CPT-09412 Level 3 Est. 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
--- OUTSIDE RECORDS SUMMARY | 2019-10-08 09:38 | XMS REPORT | Clinical Summary ---
Author Author Caitlin, Juliana Martinez Organization [facility] Address Unknown Phone Unavailable Allergies, [...] po daily for Allergy 6 MONTELUKAST SODIUM 55141278995 Active ALFREDO Holly Act nael TUSSIONEX PENNKINETIC ER 10-8 MG/5ML LQCR 5 ml twice a day a s needed for cough HYDROCOD POLST-CHLORPHEN POLST 99362998852 Active Hugo Restrepo MD Active TUSSIONEX PENNKINETIC ER 10-8 MG/5ML LQCR 5ml po q12hr PRN Cough HYDROCOD POLST-CHLORPHEN POLST 58133282399 No Longer Active Hugo Restrepo MD Active GABAPENTIN 100 MG CAPS 1 po BID for fibromyalgia GABAPENTIN 95181838860 Active Elise Whitmore APRN Active LYRICA 100 MG CAPS Take 1 tab po BID for fibromyalgia PREGABALIN 21379199776 No Longer Active Elise Whitmore APRN Acti ve PROAIR HFA 108 (90 BASE) MCG/ACT AERS 2 puffs four times a d ay as needed ALBUTEROL SULFATE 06700891797 Active Diya De Guzman APR N Active MUCINEX DM MAXIMUM STRENGTH 60-1200 MG [id number] 1 tab po q am 2016 DEXTROMETHORPHAN-GUAIFENESIN 36399696961 Active Diya De Guzman [employer]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 PREDNISONE 20 MG TAB 2 tabs daily for 3 days, 1 t ab daily for 3 days, 1/2 tab daily for 2 days PREDNISONE 16466147358 No Longer Active Diya De Guzman [employer]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 TUSSIONEX PENNKINETIC ER 10-8 MG/5ML ORAL LQCR 5 mL PO q 12 hrs PRN cough HYDROCOD POLST-CHLORPHEN POLST 18809347393 No Longer Active Diya Guerrerol J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 FLUTICASONE PROPIONATE 50 MCG/ACT SUSP 2 sprays each n ostril daily until bottle is empty FLUTICASONE PROPIONATE 79024231531 No Longer Ac tive Diya Guerrerol 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 ASMANEX 60 METERED DOSES 220 MCG/INH AEPB 1 puff bid with ri nse after MOMETASONE FUROATE 03046632325 No Longer Active Diya Saeed ell 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 ZITHROMAX Z-REYNA 250 MG TABS 2 today, then 1 daily for 4 days 201 09/29/14 AZITHROMYCIN 71638763648 No Longer Active Elise Whitmore APRN Active TUSSIONEX PENNKINETIC ER 10-8 MG/5ML LQCR 5ml po q12hr PRN Cough HYDROCOD POLST-CHLORPHEN POLST 20466549512 No Longer Active Elise Whitmore APRN Active MUCINEX D 60-600 MG [id number] 1 tab po q am PSEUDOEPHEDRINE-GUAIFENESIN 11089604728 Active Jillina Frazell J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 PREDNISONE 20 MG TAB 2 tabs daily for 3 days, 1 t ab daily for 3 days, 1/2 tab daily for 2 days PREDNISONE 93525714318 No Longer Active Jillina Frazell J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 AMOXICILLIN 500 MG CAPS 2 po BID x 10 days AMOX ICILLIN 78176034366 No Longer Active Jillina Frazell J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 SINGULAIR 10 MG TABS 1 po qday for allergies 2 MONTELUKAST SODIUM 86965703497 No Longer Active Carlton Hu MD Acti ve LEVAQUIN 500 MG TAB 1 tablet by mouth daily LEV OFLOXACIN 79132530717 No Longer Active Carlton Hu MD Active FLUTICASONE PROPIONATE 50 MCG/ACT SUSP 2 sprays each n ostril daily for 2 weeks, then 1 spray each nostril daily. FLUTICASONE PRO PIONATE 74358877247 Active Elise Whitmore APRN Active ZITHROMAX 250 MG TAB 2 po today, then 1 po q days 2-5 AZITHROMYCIN 84550710681 No Longer Active Elise Whitmore APRN Acti ve XANAX 0.5 MG TABS one tablet by mouth daily prn anxiety ALPRAZOLAM 73602524172 Active Elise Whitmore APRN Active CYMBALTA 30 MG CPEP 1 cap by mouth daily for depression DULOXETINE HCL 92410382794 Active Carlton Hu MD Active CEFDINIR 300 MG CAPS 1 po BID x 10 days CEFDINI R 35020473936 No Longer Active Carlton Hu MD Active ZOCOR 40 MG TAB 1 tab by mouth daily SIMVASTATI N 52533814818 No Longer Active Carlton Hu MD Active CYCLOBENZAPRINE HCL 10 MG TABS 1 tablet by mouth BID prn had cherelle n CYCLOBENZAPRINE HCL 89969161615 No Longer Active Carlton Hu MD Active LEVOFLOXACIN 500 MG ORAL TABS 1 tab PO daily x 10 days LEVOFLOXACIN 79234855822 No Longer Active Carlton Hu MD Acti ve PREDNISONE 20 MG ORAL TABS 3 tab PO qd x 2d, 2 tab PO qd x 2d, 1 tab PO qd x 2d, 1/2 tab PO qd x 2d PREDNISONE 68764387379 No Longer Active Carlton Hu MD Active FLUTICASONE PROPIONATE 50 MCG/ACT SUSP 1 to 2 sprays each no stril daily FLUTICASONE PROPIONATE 82857232006 No Longer Active T jaz HERNANDEZ Active CHERATUSSIN AC 100-10 MG/5ML SYRP 1 tsp by mouth every 4 hours as needed for cough GUAIFENESIN-CODEINE 93957120072 No Longer Activ e Blaine HERNANDEZ Active PROMETHAZINE-CODEINE 6.25-10 MG/5ML SYRP 1 tsp by mout h every 6 hours if needed for cough PROMETHAZINE-CODEINE 53132855383 No Long er Active Blaine HERNANDEZ Active CHERATUSSIN AC 100-10 MG/5ML SYRP 1 tsp by mouth every 4 hours as needed for cough GUAIFENESIN-CODEINE 69585484643 No Longer Activ e Blaine HERNANDEZ Active ZITHROMAX Z-REYNA 250 MG TABS 2 today, then 1 daily for 4 days 201 08/30/03 AZITHROMYCIN 69309810974 No Longer Active Columba Raida Act nael ZITHROMAX 250 MG TAB 2 po today, then 1 po q days 2-5 AZITHROMYCIN 62552478496 No Longer Active Carlton Hu MD Acti ve ZITHROMAX Z-REYNA 250 MG TABS 2 today, then 1 daily for 4 days 201 08/07/20 AZITHROMYCIN 93823039360 No Longer Active Columba Raida Act nael AUGMENTIN 875-125 MG TAB 1 po BID x 10 days AMOXICILLIN- POT CLAVULANATE 46362625581 No Longer Active Diya Sernabrayan RICEN Active ZITHROMAX 250 MG TAB 2 po today, then 1 po q days 2-5 AZITHROMYCIN 16674389247 No Longer Active Carlton uH MD Acti ve TRAMADOL HCL 50 MG TABS 1 po tid with ES Tylenol TRAMADOL HCL 17439397844 Active Carlton Hu MD Active PREMARIN 0.625 MG TABS TAKE 1 TAB BY MOUTH DAILY 07/25 ESTROGENS CONJUGATED 89359154314 No Longer Active Ridge Bess DO Active CYMBALTA 30 MG CPEP 1 cap by mouth daily DULOXE SNEHA HCL 52382310397 No Longer Active Ridge Bess DO Active AMOXICILLIN 500 MG CAP 1 tab by mouth 3 times daily x 10 days 20 14/04/28 AMOXICILLIN 48799072690 No Longer Active Carlton Hu MD Active AMOXICILLIN 500 MG CAP 1 tab by mouth 3 times daily x 10 days 20 13/03/08 AMOXICILLIN 48371009142 No Longer Active Carlton Hu MD Active PROMETHAZINE-CODEINE 6.25-10 MG/5ML SYRP 1 tsp by mouth ever y 8 hours prn cough PROMETHAZINE-CODEINE 40664246757 No Longer Active Robert Hu MD Active MEDROL (REYNA) 4 MG TABS 6 pills x 1 day, then 5 pill s x 1 day then 4 pills x 1 day, then 3 pills x 1 day, then 2 pills x 1 day, then 1 pill x 1 day, then stop METHYLPREDNISOLONE 38291128712 No Longer Active Parris Mora MD Active AZITHROMYCIN 250 MG TABS 2 po qd x 1 day, then 1 po qd x 4 days AZITHROMYCIN 87742904347 No Longer Active Perez Mora MD Active SYMBICORT 160-4.5 MCG/ACT AERO 2 puffs bid with rinse after 2011 BUDESONIDE-FORMOTEROL FUMARATE 88782100886 No Longer Active Perez Mora MD Active LYRICA 75 MG CAPS TAKE 1 CAPSULE BY MOUTH TWICE DAILY 2013 PREGABALIN 56492483053 No Longer Active Carlton Hu MD Active TOPAMAX 25 MG TABS 1 qHS x 1 week, then 1 BID x 1 week, then 1 qAM and 2 qHS x 1 week, then 2 BID (migraine prevention) TOPIRAMAT E 08332680403 No Longer Active Jerica FUENTES Active TOPAMAX 50 MG TABS take 1 tab po BID for migraines. 12/07/10 TOPIRAMATE 78806401870 No Longer Active Jerica Osei RMA Ac tive TOPAMAX 100 MG TABS Take 1 tablet po bid TOPIRAMATE 4999 9751489 Active Elise Whitmore APRN Active TRIAMCINOLONE ACETONIDE 0.1 % CREA apply three times daily prn r beatrice TRIAMCINOLONE ACETONIDE 47310225263 No Longer Active Carlton Hu MD Active PAXIL 40 MG TAB take 1 tab po qday for depression PAROXETINE HCL 96129878322 Active Elise Whitmore APRN Active CHERATUSSIN AC 100-10 MG/5ML SYRP 5ml po q6hr PRN Cough GUAIFENESIN-CODEINE 29302373634 No Longer Active Carlton Hu MD Active MEDROL (REYNA) 4 MG TABS 6 tabs on day 1, 5 tabs on d ay 2, 4 tabs on day 3, 3 tabs on day 4, 2 tabs on day 5, 1 tab on day 6 METHYLPREDNISOLONE 68322613137 No Longer Active Perez Mora MD Active AZITHROMYCIN 250 MG TABS 2 po qd x 1 day, then 1 po qd x 4 days AZITHROMYCIN 85262033092 No Longer Active Perez Mora MD Active PROPRANOLOL HCL 60 MG TABS 1 PO Q D PROPRANOL OL HCL 81287513977 No Longer Active Perez Mora MD Active CHERATUSSIN AC 100-10 MG/5ML SYRP take one tsp po Q 6hours prn c ough GUAIFENESIN-CODEINE 05431953333 No Longer Active Perez Means Active AUGMENTIN 875-125 MG TAB 1 tab by mouth twice daily with food 20 12/03/31 AMOXICILLIN-POT CLAVULANATE 00232836459 No Longer Active Chanel Mora MD Active CHERATUSSIN AC 100-10 MG/5ML SYRP 1 tsp by mouth every 4 hours as needed for cough GUAIFENESIN-CODEINE 05325479413 No Longer Activ e Hugo Restrepo MD Active ACETAMINOPHEN-CODEINE #3 300-30 MG TABS 1 PO Q 4-6 HRS PRN PAIN ACETAMINOPHEN-CODEINE 23090743458 No Longer Active Hugo Restrepo MD Active LEVAQUIN 500 MG TABS take one po QD LEVOFLOXACI N 30375807892 No Longer Active Griffin HERNANDEZ Active PREDNISONE 20 MG TAB Take 3 tabs daily for 3 days , 2 tabs daily for 3 days, 1 tab daily for 3 days, 1/2 tab daily for 3 days P REDNISONE 16923105171 No Longer Active Carlton Hu MD Active AVELOX 400 MG TABS 1 tab by mouth daily MOXIFLO XACIN HCL 82956127605 No Longer Active Carlton Hu MD Active CHERATUSSIN AC 100-10 MG/5ML SYRP 1 tsp by mouth every 4 hours as needed for cough GUAIFENESIN-CODEINE 37920091038 No Longer Activ e Hugo Restrepo MD Active AVELOX 400 MG TABS 1 tab by mouth daily MOXIFLO XACIN HCL 20992964056 No Longer Active Marcy De La Rosa MD PhD Active TERBINAFINE HCL 250 MG TABS 1 qDay TERBINAF INE HCL 35126014667 No Longer Active Marcy De La Rosa MD PhD Active CHERATUSSIN AC 100-10 MG/5ML SYRP 1 tsp by mouth every 4 hours as needed for cough GUAIFENESIN-CODEINE 72024070863 No Longer Activ e Marcy De La Rosa MD PhD Active AVELOX 400 MG TABS 1 tab by mouth daily MOXIFLO XACIN HCL 68021880179 No Longer Active Marcy De La Rosa MD PhD Active HYDROCODONE-ACETAMINOPHEN 5-325 MG TABS 1 po q 6hr PRN cough 201 05/09/16 HYDROCODONE-ACETAMINOPHEN 03616491571 No Longer Active Marcy De La Rosa MD PhD Active PREDNISONE 20 MG TAB 2 tabs daily for 3 days, 1 t ab daily for 3 days, 1/2 tab daily for 2 days PREDNISONE 08743131492 No Longer Active Carlton Hu MD Active CEFDINIR 300 MG CAPS by mouth twice a day CEFDI ODILIA 26903697559 No Longer Active Carlton Hu MD Active HYDROCHLOROTHIAZIDE 25 MG TABS 1 TAB PO DAILY H YDROCHLOROTHIAZIDE 55766206257 Active Carlton Hu MD Active ACETAMINOPHEN-CODEINE #3 300-30 MG TABS 1 tablet po q 4-6hrs prn pain ACETAMINOPHEN-CODEINE 07692118246 No Longer Active Ridge Bess DO Active ZITHROMAX 250 MG TAB 2 po today, then 1 po q days 2-5 AZITHROMYCIN 20996918124 No Longer Active Carlton Hu MD Acti ve CHERATUSSIN AC 100-10 MG/5ML SYRP take 1 tsp po q4-6 hours prn c ough GUAIFENESIN-CODEINE 74134716864 No Longer Active Carlton Hu MD Active ACETAMINOPHEN-CODEINE #3 300-30 MG TABS 1 PO Q 4-6 HR PRN PAIN 2 ACETAMINOPHEN-CODEINE 63485155196 No Longer Active Carlton rich MD Active LORTAB 7.5-500 MG/15ML ELIX 7.5 ml po q 4 hour prn cough HYDROCODONE-ACETAMINOPHEN 06005581129 No Longer Active Carlton Hu MD Active PREDNISONE 20 MG TAB 1 po bid 3 days, then 1 po q day 3 days 201 05/03/07 PREDNISONE 98139662670 No Longer Active Carlton Hu MD Active ELMIRON 100 MG CAPS 2 tablets in the am and 1 tablet at hs PENTOSAN POLYSULFATE SODIUM 50562185389 Active Carlton Hu MD Ac tive CEFDINIR 300 MG CAPS by mouth twice a day CEFDI ODILIA 50070472914 No Longer Active Carlton Hu MD Active CEFDINIR 300 MG CAPS by mouth twice a day CEFDI ODILIA 27853065962 No Longer Active Carlton Hu MD Active CEFDINIR 300 MG CAPS by mouth twice a day CEFDI ODILIA 96075086160 No Longer Active Carlton Hu MD Active TESSALON PERLES 100 MG CAP 1 tablet by mouth 3 times daily a s needed for cough BENZONATATE 39456122622 No Longer Active Carlton bustamante MD Active CEFDINIR 300 MG CAPS by mouth twice a day CEFDI ODILIA 98204960481 No Longer Active Carlton Hu MD Active ZITHROMAX Z-REYNA 250 MG TABS 2 today, then 1 daily for 4 days 201 04/09/17 AZITHROMYCIN 89382823138 No Longer Active Hugo Restrepo MD Active TESSALON PERLES 100 MG CAP 1 tablet by mouth 3 times daily a s needed for cough TESSALON PERLES 100 MG CAP 441996 BENZONATATE I nactive PREDNISONE 20 MG TAB 1 po bid 3 days, then 1 po q day 3 days 201 05/03/07 PREDNISONE 20 MG TAB 072683 PREDNISONE Inactive LORTAB 7.5-500 MG/15ML ELIX 7.5 ml po q 4 hour prn cough LORTAB 7.5-500 MG/15ML ELIX HYDROCODONE-ACETAMINOPHEN Inacti ve ACETAMINOPHEN-CODEINE #3 300-30 MG TABS 1 PO Q 4-6 HR PRN PAIN 2 ACETAMINOPHEN-CODEINE #3 300-30 MG TABS ACETAMIN OPHEN-CODEINE Inactive CHERATUSSIN AC 100-10 MG/5ML SYRP take 1 tsp po q4-6 hours prn c ough CHERATUSSIN AC 100-10 MG/5ML SYRP 571915 GUAIFENESIN-CO DEINE Inactive ACETAMINOPHEN-CODEINE #3 300-30 MG TABS 1 tablet po q 4-6hrs prn pain ACETAMINOPHEN-CODEINE #3 300-30 MG TABS ACETAMIN OPHEN-CODEINE Inactive HYDROCODONE-ACETAMINOPHEN 5-325 MG TABS 1 po q 6hr PRN cough 201 05/09/16 HYDROCODONE-ACETAMINOPHEN 5-325 MG TABS 843369 HYDROCODONE-ACETAMINOPHEN Inactive AVELOX 400 MG TABS 1 tab by mouth daily A VELOX 400 MG TABS 317287 MOXIFLOXACIN HCL Inactive CHERATUSSIN AC 100-10 MG/5ML SYRP 1 tsp by mouth every 4 hours as needed for cough CHERATUSSIN AC 100-10 MG/5ML SYRP 088801 GUAIFENESIN-CODEINE Inactive TERBINAFINE HCL 250 MG TABS 1 qDay TERBINAFINE HCL 250 MG TABS 608618 TERBINAFINE HCL Inactive CHERATUSSIN AC 100-10 MG/5ML SYRP 1 tsp by mouth every 4 hours as needed for cough CHERATUSSIN AC 100-10 MG/5ML SYRP 318444 GUAIFENESIN-CODEINE Inactive ACETAMINOPHEN-CODEINE #3 300-30 MG TABS 1 PO Q 4-6 HRS PRN PAIN ACETAMINOPHEN-CODEINE #3 300-30 MG TABS ACETAMINOPHEN-CODEIN E Inactive CHERATUSSIN AC 100-10 MG/5ML SYRP 1 tsp by mouth every 4 hours as needed for cough CHERATUSSIN AC 100-10 MG/5ML SYRP 021984 GUAIFENESIN-CODEINE Inactive AUGMENTIN 875-125 MG TAB 1 tab by mouth twice daily with food 20 12/03/31 AUGMENTIN 875-125 MG TAB 651707 AMOXICILLIN-POT CLAVULA EFE Inactive CHERATUSSIN AC 100-10 MG/5ML SYRP take one tsp po Q 6hours prn c ough CHERATUSSIN AC 100-10 MG/5ML SYRP 619530 GUAIFENESIN-CO DEINE Inactive PROPRANOLOL HCL 60 MG TABS 1 PO Q D P ROPRANOLOL HCL 60 MG TABS 586881 PROPRANOLOL HCL Inactive TOPAMAX 50 MG TABS take 1 tab po BID for migraines. 12/07/10 TOPAMAX 50 MG TABS 220039 TOPIRAMATE Inactive TOPAMAX 25 MG TABS 1 qHS x 1 week, then 1 BID x 1 week, then 1 qAM and 2 qHS x 1 week, then 2 BID (migraine prevention) TOPAMAX 2 5 MG TABS 880424 TOPIRAMATE Inactive LYRICA 75 MG CAPS TAKE 1 CAPSULE BY MOUTH TWICE DAILY LYRICA 75 MG CAPS PREGABALIN Inactive SYMBICORT 160-4.5 MCG/ACT AERO 2 puffs bid with rinse after 2011 SYMBICORT 160-4.5 MCG/ACT AERO BUDESONIDE-FORMOT SÁNCHEZ FUMARATE Inactive PROMETHAZINE-CODEINE 6.25-10 MG/5ML SYRP 1 tsp by mouth ever y 8 hours prn cough PROMETHAZINE-CODEINE 6.25-10 MG/5ML SYRP 603274 PROMETHAZINE-CODEINE Inactive CYMBALTA 30 MG CPEP 1 cap by mouth daily CYMBALTA 30 MG CPEP 013502 DULOXETINE HCL Inactive PREMARIN 0.625 MG TABS TAKE 1 TAB BY MOUTH DAILY 07/25 PREMARIN 0.625 MG TABS ESTROGENS CONJUGATED Inactive CHERATUSSIN AC 100-10 MG/5ML SYRP 1 tsp by mouth every 4 hours as needed for cough CHERATUSSIN AC 100-10 MG/5ML SYRP 335944 GUAIFENESIN-CODEINE Inactive PROMETHAZINE-CODEINE 6.25-10 MG/5ML SYRP 1 tsp by mout h every 6 hours if needed for cough PROMETHAZINE-CODEINE 6.25-10 MG/5ML SYRP 714500 PROMETHAZINE-CODEINE Inactive CHERATUSSIN AC 100-10 MG/5ML SYRP 1 tsp by mouth every 4 hours as needed for cough CHERATUSSIN AC 100-10 MG/5ML SYRP 680623 GUAIFENESIN-CODEINE Inactive FLUTICASONE PROPIONATE 50 MCG/ACT SUSP 1 to 2 sprays each no stril daily FLUTICASONE PROPIONATE 50 MCG/ACT SUSP 0275682 FLUTICASONE PROPIONATE Inactive PREDNISONE 20 MG ORAL TABS 3 tab PO qd x 2d, 2 tab PO qd x 2d, 1 tab PO qd x 2d, 1/2 tab PO qd x 2d PREDNISONE 20 MG ORAL TABS 020335 PREDNISONE Inactive LEVOFLOXACIN 500 MG ORAL TABS 1 tab PO daily x 10 days LEVOFLOXACIN 500 MG ORAL TABS 902995 LEVOFLOXACIN Inactive CYCLOBENZAPRINE HCL 10 MG TABS 1 tablet by mouth BID prn had cherelle n CYCLOBENZAPRINE HCL 10 MG TABS 691076 CYCLOBENZAPRINE H CL Inactive ZOCOR 40 MG TAB 1 tab by mouth daily ZOCOR 40 M G TAB 195860 SIMVASTATIN Inactive TUSSIONEX PENNKINETIC ER 10-8 MG/5ML [...] empty FLUTICASONE PROPIONATE 50 MCG/ACT SUSP 17 79383 FLUTICASONE PROPIONATE Inactive TUSSIONEX PENNKINETIC ER 10-8 [...] 201 04/09/17 ZITHROMAX Z-REYNA 250 MG TABS 9654293 AZITHROMYCIN Inac tive CEFDINIR 300 MG CAPS by mouth twice a day CEFDINIR 300 MG CAPS 20020704 CEFDINIR Inactive CEFDINIR 300 MG CAPS by mouth twice a day CEFDINIR 300 MG CAPS 20020704 CEFDINIR Inactive CEFDINIR 300 MG CAPS by mouth twice a day CEFDINIR 300 MG CAPS 944630 CEFDINIR Inactive CEFDINIR 300 MG CAPS by mouth twice a day CEFDINIR 300 MG CAPS 20020704 CEFDINIR Inactive ZITHROMAX 250 MG TAB 2 po today, then 1 po q days 2-5 ZITHROMAX 250 MG TAB 1652543 AZITHROMYCIN Inactive CEFDINIR 300 MG CAPS by mouth twice a day CEFDINIR 300 MG CAPS 036546 CEFDINIR Inactive PREDNISONE 20 MG TAB 2 tabs daily for 3 days, 1 t ab daily for 3 days, 1/2 tab daily for 2 days PREDNISONE 20 MG TAB 199398 PREDNISON E Inactive AVELOX 400 MG TABS 1 tab by mouth daily A VELOX 400 MG TABS 345552 MOXIFLOXACIN HCL Inactive AVELOX 400 MG TABS 1 tab by mouth daily A VELOX 400 MG TABS 791246 MOXIFLOXACIN HCL Inactive PREDNISONE 20 MG TAB Take 3 tabs daily for 3 days , 2 tabs daily for 3 days, 1 tab daily for 3 days, 1/2 tab daily for 3 days PREDNISONE 20 MG TAB 536171 PREDNISONE Inactive LEVAQUIN 500 MG TABS take one po QD LEVAQUIN 50 0 MG TABS 349434 LEVOFLOXACIN Inactive AZITHROMYCIN 250 MG TABS 2 po qd x 1 day, then 1 po qd x 4 days AZITHROMYCIN 250 MG TABS 6375007 AZITHROMYCIN Inactiv e MEDROL (REYNA) 4 MG TABS 6 tabs on day 1, 5 tabs on d ay 2, 4 tabs on day 3, 3 tabs on day 4, 2 tabs on day 5, 1 tab on day 6 MEDROL (REYNA) 4 MG TABS 040893 METHYLPREDNISOLONE Inactive CHERATUSSIN AC 100-10 MG/5ML SYRP 5ml po q6hr PRN Cough CHERATUSSIN AC 100-10 MG/5ML SYRP 173205 GUAIFENESIN-CODEINE Inacti ve TRIAMCINOLONE ACETONIDE 0.1 % CREA apply three times daily prn r beatrice TRIAMCINOLONE ACETONIDE 0.1 % CREA 5420667 TRIAMCINOLONE ACETONIDE Inactive AZITHROMYCIN 250 MG TABS 2 po qd x 1 day, then 1 po qd x 4 days AZITHROMYCIN 250 MG TABS 4196447 AZITHROMYCIN Inactiv e MEDROL (REYNA) 4 MG TABS 6 pills x 1 day, then 5 pill s x 1 day then 4 pills x 1 day, then 3 pills x 1 day, then 2 pills x 1 day, then 1 pill x 1 day, then stop MEDROL (REYNA) 4 MG TABS 990646 METHYLPREDNISOLONE Inactive AMOXICILLIN 500 MG CAP 1 tab by mouth 3 times daily x 10 days 20 13/03/08 AMOXICILLIN 500 MG CAP 423191 AMOXICILLIN Inactive AMOXICILLIN 500 MG CAP 1 tab by mouth 3 times daily x 10 days 20 14/04/28 AMOXICILLIN 500 MG CAP 050330 AMOXICILLIN Inactive ZITHROMAX 250 MG TAB 2 po today, then 1 po q days 2-5 ZITHROMAX 250 MG TAB 4639917 AZITHROMYCIN Inactive AUGMENTIN 875-125 MG TAB 1 po BID x 10 days AUGMENTIN 875- 125 MG TAB 822756 AMOXICILLIN-POT CLAVULANATE Inactive ZITHROMAX Z-REYNA 250 MG TABS 2 today, then 1 daily for 4 days 201 08/07/20 ZITHROMAX Z-REYNA 250 MG TABS 2843323 AZITHROMYCIN Inac tive ZITHROMAX 250 MG TAB 2 po today, then 1 po q days 2-5 ZITHROMAX 250 MG TAB 3671366 AZITHROMYCIN Inactive ZITHROMAX Z-REYNA 250 MG TABS 2 today, then 1 daily for 4 days 201 08/30/03 ZITHROMAX Z-REYNA 250 MG TABS 9364710 AZITHROMYCIN Inac tive CEFDINIR 300 MG CAPS 1 po BID x 10 days C EFDINIR 300 MG CAPS 118708 CEFDINIR Inactive ZITHROMAX 250 MG TAB 2 po today, then 1 po q days 2-5 ZITHROMAX 250 MG TAB 4825548 AZITHROMYCIN Inactive LEVAQUIN 500 MG TAB 1 tablet by mouth daily LEVAQUIN 500 MG TAB 086596 LEVOFLOXACIN Inactive SINGULAIR 10 MG TABS 1 po qday for allergies 2 SINGULAIR 10 MG TABS 20010504 MONTELUKAST SODIUM Inactive AMOXICILLIN 500 MG CAPS 2 po BID x 10 days AMOXICILLIN 500 MG CAPS 896620 AMOXICILLIN Inactive PREDNISONE 20 MG TAB 2 tabs daily for 3 days, 1 t ab daily for 3 days, 1/2 tab daily for 2 days PREDNISONE 20 MG TAB 227242 PREDNISON E Inactive ZITHROMAX Z-REYNA 250 MG TABS 2 today, then 1 daily for 4 days 201 09/29/14 ZITHROMAX Z-REYNA 250 MG TABS 7948271 AZITHROMYCIN Inac tive PREDNISONE 20 MG TAB 2 tabs daily for 3 days, 1 t ab daily for 3 days, 1/2 tab daily for 2 days PREDNISONE 20 MG TAB 524990 PREDNISON E Inactive Vital Signs Date Name [...] Negative Encounters Code Encounter Date Provider Facility CPT-47952 Level 3 Est. Patient 12:17:50 CDT Hugo Restrepo MD [facility] CPT-70713 Level 3 Est. Patient 13:42:38 CDT Italo [facility] CPT-52092 Level 3 Est. Patient 13:23:51 CDT Diya cobian [facility] CPT-76164 Level 3 Est. Patient 14:22:19 METAL BUMPER Diya cobian [facility] CPT-21637 Level 3 Est. Patient 10:11:46 CDT Carlton rich MD [facility] CPT-97640 Level 3 Est. Patient 17:29:43 CDT Italo [facility]-22501 Level 3 Est. Patient 11:58:06 CDT Italo [facility] CPT-67678 Level 4 Est. Patient 14:36:51 CDT Carlton rich MD [facility]-55363 Level 3 Est. Patient 18:16:00 METAL BUMPER Blaine Freeman [facility] CPT-70182 Level 3 Est. Patient 09:45:49 METAL BUMPER Carlton rich MD [facility]-71121 Level 3 Est. Patient 13:19:20 CDT Carlton rich MD [facility]-96276 Level 3 Est. Patient 13:06:43 CDT Ridge tam DO [facility] CPT-12690 Level 3 Est. Patient 10:03:07 CDT Perez Mora MD [facility]-03168 Level 3 Est. Patient 19:50:35 METAL BUMPER Carlton rich MD [facility] CPT-37582 Level 4 Est. Patient 18:05:01 METAL BUMPER Carlton rich MD [facility] CPT-27659 Level 3 Est. Patient 10:45:55 METAL BUMPER Hugo Restrepo MD [facility] CPT-40978 Level 3 Est. Patient 14:12:49 CDT Griffin lincoln [facility]-52832 Level 3 Est. Patient 17:37:24 CDT Carlton rich MD [facility]-83660 Level 3 Est. Patient 16:51:54 CDT Carlton rich MD [facility]-76426 Level 3 Est. Patient 12:18:11 CDT Hugo Restrepo MD [facility]-59606 Level 3 Est. Patient 11:30:25 CDT Marcy crisostomo MD PhD [facility] CPT-95508 Level 3 Est. Patient 12:00:47 METAL BUMPER Carlton rich MD [facility] CPT-93713 Level 3 Est. Patient 16:31:06 METAL BUMPER Carlton rich MD [facility] CPT-19070 Level 3 Est. Patient 16:23:24 METAL BUMPER Ridge tam [facility] CPT-71949 Level 3 Est. Patient 12:34:12 CDT Carlton rich MD [facility] CPT-98152 Level 2 Est. Patient 15:43:33 CDT Robi armstrong MD [facility] CPT-93050 Level 4 Est. Patient 14:04:44 CDT Carlton rich MD [facility] CPT-18684 Level 3 Est. Patient 05:47:59 CDT Ridge tam [facility] CPT-00323 Level 3 Est. Patient 13:12:53 METAL BUMPER Carlton rich MD [facility] CPT-49869 Level 3 Est. Patient 14:26:53 CDT Hugo Restrepo MD [facility] Procedures Code Procedure Name Date Entry Date Standard Desc ription CPT-J0696 Rocephin 1gm Inj Solr 14:32:13 CDT CPT-J1020 Depo Medrol 60 mg (Methyl Prednisolone A cetate) 14:32:13 CDT CPT-J1100 Decadron 6mg (Dexamethasone) 14:32:13 CDT 2 CPT-58414 Hip bilat min 2V w AP pelvis 13:16:20 CDT 2 CPT-59959 Pelvis only 13:07:33 CDT CPT-24772 Spec Collection and Handling Fee 11:25:12 C DT CPT-54940 Fluzone Quadrivalent Intramuscular Suspe nsion 0.5 ML 14:31:55 CDT CPT-71765 Abx/Therapy Injection 13:28:47 METAL BUMPER CPT-J2930 Solu Medrol 125 mg (Methyl Prednisolone Sodium Succinate) 12:00:47 METAL BUMPER CPT-37368 Venipuncture Draw Fee 11:33:31 CDT CPT-25372 EKG Trac and Interp 11:21:09 CDT CPT-01937 Chest 2V Frontal and Lat 11:21:09 CDT 12/15 CPT-03231 Venipuncture Draw Fee 08:02:34 CDT CPT-14446 Chest 2V Frontal and Lat 05:47:59 CDT 06/05
--- OUTSIDE RECORDS SUMMARY | 2019-10-08 09:39 | XMS REPORT | Clinical Summary ---
Author Author Caitlin, Juliana Martinez Organization [facility] Address Unknown Phone Unavailable [...] sites Sinusitis 473.9 Active Diya De Guzman GRIP ASSEMBLER Unspecified sinusitis (chronic) Bronchitis-Acute 466.0 Active Carlton Hu MD Acute bronchitis URI - acute 465.9 Active Elise Whitmore GRIP ASSEMBLER Acute upper respiratory infections of unspecified site [...] 1 tablet by mouth daily LEV OFLOXACIN 06986242612 No Longer Active Carlton Hu MD Active FLUTICASONE PROPIONATE 50 MCG/ACT SUSP 2 sprays each n ostril daily for 2 weeks, then 1 spray each nostril daily. FLUTICASONE PRO PIONATE 33592767549 Active Elise Whitmore APRN Active ZITHROMAX 250 MG TAB 2 po today, then 1 po q days 2-5 AZITHROMYCIN 58617849288 No Longer Active Elise Whitmore APRN Acti ve XANAX 0.5 MG TABS one tablet by mouth daily prn anxiety ALPRAZOLAM 05816623307 Active Carlton Hu MD Active CYMBALTA 30 MG CPEP 1 cap by mouth daily for depression DULOXETINE HCL 68757485530 Active Carlton Hu MD Active CEFDINIR 300 MG CAPS 1 po BID x 10 days CEFDINI R 25212954057 No Longer Active Carlton Hu MD Active ZOCOR 40 MG TAB 1 tab by mouth daily SIMVASTATI N 51427329874 No Longer Active Carlton Hu MD Active CYCLOBENZAPRINE HCL 10 MG TABS 1 tablet by mouth BID prn had cherelle n CYCLOBENZAPRINE HCL 88256343383 No Longer Active Carlton Hu MD Active LEVOFLOXACIN 500 MG ORAL TABS 1 tab PO daily x 10 days LEVOFLOXACIN 71515078042 No Longer Active Carlton Hu MD Acti ve PREDNISONE 20 MG ORAL TABS 3 tab PO qd x 2d, 2 tab PO qd x 2d, 1 tab PO qd x 2d, 1/2 tab PO qd x 2d PREDNISONE 57217470555 No Longer Active Carlton Hu MD Active TUSSIONEX PENNKINETIC ER 10-8 MG/5ML ORAL LQCR 5 mL PO q 12 hrs PRN cough HYDROCOD POLST-CHLORPHEN POLST 82522665550 Active Zo meeks Active FLUTICASONE PROPIONATE 50 MCG/ACT SUSP 1 to 2 sprays each no stril daily FLUTICASONE PROPIONATE 77798627041 No Longer Active T jaz HERNANDEZ Active CHERATUSSIN AC 100-10 MG/5ML SYRP 1 tsp by mouth every 4 hours as needed for cough GUAIFENESIN-CODEINE 59819756817 No Longer Activ e Blaine HERNANDEZ Active PROMETHAZINE-CODEINE 6.25-10 MG/5ML SYRP 1 tsp by mout h every 6 hours if needed for cough PROMETHAZINE-CODEINE 65865198752 No Long er Active Blaine HERNANDEZ Active CHERATUSSIN AC 100-10 MG/5ML SYRP 1 tsp by mouth every 4 hours as needed for cough GUAIFENESIN-CODEINE 49548470734 No Longer Activ e Blaien HERNANDEZ Active ZITHROMAX Z-REYNA 250 MG TABS 2 today, then 1 daily for 4 days 201 08/30/03 AZITHROMYCIN 57273636369 No Longer Active Columba Raida Act nael ZITHROMAX 250 MG TAB 2 po today, then 1 po q days 2-5 AZITHROMYCIN 28108668783 No Longer Active Carlton Hu MD Acti ve ZITHROMAX Z-REYNA 250 MG TABS 2 today, then 1 daily for 4 days 201 08/07/20 AZITHROMYCIN 40449347024 No Longer Active Columba Raida Act nael AUGMENTIN 875-125 MG TAB 1 po BID x 10 days AMOXICILLIN- POT CLAVULANATE 40111241005 No Longer Active Diya De Guzman APRN Active ZITHROMAX 250 MG TAB 2 po today, then 1 po q days 2-5 AZITHROMYCIN 37105611700 No Longer Active Carlton Hu MD Acti ve TRAMADOL HCL 50 MG TABS 1 po tid with ES Tylenol TRAMADOL HCL 21233128693 Active Carlton Hu MD Active PREMARIN 0.625 MG TABS TAKE 1 TAB BY MOUTH DAILY 07/25 ESTROGENS CONJUGATED 16414019192 No Longer Active Ridge Bess DO Active CYMBALTA 30 MG CPEP 1 cap by mouth daily DULOXE SNEHA HCL 58425409059 No Longer Active Ridge Bess DO Active AMOXICILLIN 500 MG CAP 1 tab by mouth 3 times daily x 10 days 20 14/04/28 AMOXICILLIN 71087311921 No Longer Active Carlton Hu MD Active AMOXICILLIN 500 MG CAP 1 tab by mouth 3 times daily x 10 days 20 13/03/08 AMOXICILLIN 98681073775 No Longer Active Carlton Hu MD Active PROMETHAZINE-CODEINE 6.25-10 MG/5ML SYRP 1 tsp by mouth ever y 8 hours prn cough PROMETHAZINE-CODEINE 94318069082 No Longer Active Robert Hu MD Active MEDROL (REYNA) 4 MG TABS 6 pills x 1 day, then 5 pill s x 1 day then 4 pills x 1 day, then 3 pills x 1 day, then 2 pills x 1 day, then 1 pill x 1 day, then stop METHYLPREDNISOLONE 33204144871 No Longer Active Parris Mora MD Active AZITHROMYCIN 250 MG TABS 2 po qd x 1 day, then 1 po qd x 4 days AZITHROMYCIN 11506556800 No Longer Active Perez Mora MD Active SYMBICORT 160-4.5 MCG/ACT AERO 2 puffs bid with rinse after 2011 BUDESONIDE-FORMOTEROL FUMARATE 08812592472 No Longer Active Perez Mora MD Active LYRICA 75 MG CAPS TAKE 1 CAPSULE BY MOUTH TWICE DAILY 2013 PREGABALIN 51061513082 No Longer Active Carlton Hu MD Active LYRICA 100 MG CAPS Take 1 tab po BID for fibromyalgia PREGABALIN 64649835078 Active Elise Whitmore APRN Active TOPAMAX 25 MG TABS 1 qHS x 1 week, then 1 BID x 1 week, then 1 qAM and 2 qHS x 1 week, then 2 BID (migraine prevention) TOPIRAMAT E 84510724747 No Longer Active Jerica Farnaz FUENTES Active TOPAMAX 50 MG TABS take 1 tab po BID for migraines. 12/07/10 TOPIRAMATE 28362692996 No Longer Active Jerica Manzoerica AGUILARA Ac tive TOPAMAX 100 MG TABS Take 1 tablet po bid TOPIRAMATE 4999 9186485 Active Carlton Hu MD Active TRIAMCINOLONE ACETONIDE 0.1 % CREA apply three times daily prn r beatrice TRIAMCINOLONE ACETONIDE 44751387325 No Longer Active Carlton Hu MD Active PAXIL 40 MG TAB take 1 tab po qday for depression PAROXETINE HCL 39806520812 Active Elise Whitmore GRIP ASSEMBLER Active CHERATUSSIN AC 100-10 MG/5ML SYRP 5ml po q6hr PRN Cough GUAIFENESIN-CODEINE 03300381320 No Longer Active Carlton Hu MD Active MEDROL (REYNA) 4 MG TABS 6 tabs on day 1, 5 tabs on d ay 2, 4 tabs on day 3, 3 tabs on day 4, 2 tabs on day 5, 1 tab on day 6 METHYLPREDNISOLONE 62083118008 No Longer Active Perez Mora MD Active AZITHROMYCIN 250 MG TABS 2 po qd x 1 day, then 1 po qd x 4 days AZITHROMYCIN 96733754364 No Longer Active Perez Mora MD Active PROPRANOLOL HCL 60 MG TABS 1 PO Q D PROPRANOL OL HCL 27421038934 No Longer Active Perez Mora MD Active CHERATUSSIN AC 100-10 MG/5ML SYRP take one tsp po Q 6hours prn c ough GUAIFENESIN-CODEINE 58506531849 No Longer Active Perez Means Active AUGMENTIN 875-125 MG TAB 1 tab by mouth twice daily with food 20 12/03/31 AMOXICILLIN-POT CLAVULANATE 80963446740 No Longer Active Chanel Mora MD Active CHERATUSSIN AC 100-10 MG/5ML SYRP 1 tsp by mouth every 4 hours as needed for cough GUAIFENESIN-CODEINE 62835054997 No Longer Activ e Hugo Restrepo MD Active ACETAMINOPHEN-CODEINE #3 300-30 MG TABS 1 PO Q 4-6 HRS PRN PAIN ACETAMINOPHEN-CODEINE 32278941920 No Longer Active Hugo Restrepo MD Active LEVAQUIN 500 MG TABS take one po QD LEVOFLOXACI N 42372178715 No Longer Active Griffin HERNANDEZ Active PREDNISONE 20 MG TAB Take 3 tabs daily for 3 days , 2 tabs daily for 3 days, 1 tab daily for 3 days, 1/2 tab daily for 3 days P REDNISONE 27291818645 No Longer Active Carlton Hu MD Active AVELOX 400 MG TABS 1 tab by mouth daily MOXIFLO XACIN HCL 35920722014 No Longer Active Carlton Hu MD Active CHERATUSSIN AC 100-10 MG/5ML SYRP 1 tsp by mouth every 4 hours as needed for cough GUAIFENESIN-CODEINE 43809443478 No Longer Activ e Hugo Restrepo MD Active AVELOX 400 MG TABS 1 tab by mouth daily MOXIFLO XACIN HCL 32092304440 No Longer Active Marcy De La Rosa MD PhD Active TERBINAFINE HCL 250 MG TABS 1 qDay TERBINAF INE HCL 73163329191 No Longer Active Marcy De La Rosa MD PhD Active CHERATUSSIN AC 100-10 MG/5ML SYRP 1 tsp by mouth every 4 hours as needed for cough GUAIFENESIN-CODEINE 89948628253 No Longer Activ e Marcy De La Rosa MD PhD Active AVELOX 400 MG TABS 1 tab by mouth daily MOXIFLO XACIN HCL 50126583902 No Longer Active Marcy De La Rosa MD PhD Active HYDROCODONE-ACETAMINOPHEN 5-325 MG TABS 1 po q 6hr PRN cough 201 05/09/16 HYDROCODONE-ACETAMINOPHEN 40313392479 No Longer Active Marcy De La Rosa MD PhD Active PREDNISONE 20 MG TAB 2 tabs daily for 3 days, 1 t ab daily for 3 days, 1/2 tab daily for 2 days PREDNISONE 48825826859 No Longer Active Carlton Hu MD Active CEFDINIR 300 MG CAPS by mouth twice a day CEFDI ODILIA 70765515894 No Longer Active Carlton Hu MD Active HYDROCHLOROTHIAZIDE 25 MG TABS 1 TAB PO DAILY H YDROCHLOROTHIAZIDE 86118848881 Active Carlton Hu MD Active ACETAMINOPHEN-CODEINE #3 300-30 MG TABS 1 tablet po q 4-6hrs prn pain ACETAMINOPHEN-CODEINE 18132503524 No Longer Active Ridge Bess DO Active ZITHROMAX 250 MG TAB 2 po today, then 1 po q days 2-5 AZITHROMYCIN 25421819921 No Longer Active Carlton Hu MD Acti ve CHERATUSSIN AC 100-10 MG/5ML SYRP take 1 tsp po q4-6 hours prn c ough GUAIFENESIN-CODEINE 34798252645 No Longer Active Carlton Hu MD Active ACETAMINOPHEN-CODEINE #3 300-30 MG TABS 1 PO Q 4-6 HR PRN PAIN 2 ACETAMINOPHEN-CODEINE 90246437844 No Longer Active Carlton rich MD Active LORTAB 7.5-500 MG/15ML ELIX 7.5 ml po q 4 hour prn cough HYDROCODONE-ACETAMINOPHEN 35951899964 No Longer Active Carlton Hu MD Active PREDNISONE 20 MG TAB 1 po bid 3 days, then 1 po q day 3 days 201 05/03/07 PREDNISONE 97175926074 No Longer Active Carlton Hu MD Active ELMIRON 100 MG CAPS 2 tablets in the am and 1 tablet at hs PENTOSAN POLYSULFATE SODIUM 01184314844 Active Carlton Hu MD Ac tive CEFDINIR 300 MG CAPS by mouth twice a day CEFDI ODILIA 24791068932 No Longer Active Carlton Hu MD Active CEFDINIR 300 MG CAPS by mouth twice a day CEFDI ODILIA 74502853115 No Longer Active Carlton Hu MD Active CEFDINIR 300 MG CAPS by mouth twice a day CEFDI ODILIA 20599686862 No Longer Active Carlton Hu MD Active TESSALON PERLES 100 MG CAP 1 tablet by mouth 3 times daily a s needed for cough BENZONATATE 77304181095 No Longer Active Carlton bustamante MD Active CEFDINIR 300 MG CAPS by mouth twice a day CEFDI ODILIA 76735960549 No Longer Active Carlton Hu MD Active ZITHROMAX Z-REYNA 250 MG TABS 2 today, then 1 daily for 4 days 201 04/09/17 AZITHROMYCIN 36841890888 No Longer Active Hugo Restrepo MD Active TESSALON PERLES 100 MG CAP 1 tablet by mouth 3 times daily a s needed for cough TESSALON PERLES 100 MG CAP 719814 BENZONATATE I nactive PREDNISONE 20 MG TAB 1 po bid 3 days, then 1 po q day 3 days 201 05/03/07 PREDNISONE 20 MG TAB 732474 PREDNISONE Inactive LORTAB 7.5-500 MG/15ML ELIX 7.5 ml po q 4 hour prn cough LORTAB 7.5-500 MG/15ML ELIX HYDROCODONE-ACETAMINOPHEN Inacti ve ACETAMINOPHEN-CODEINE #3 300-30 MG TABS 1 PO Q 4-6 HR PRN PAIN 2 ACETAMINOPHEN-CODEINE #3 300-30 MG TABS 160064 ACETAMIN OPHEN-CODEINE Inactive CHERATUSSIN AC 100-10 MG/5ML SYRP take 1 tsp po q4-6 hours prn c ough CHERATUSSIN AC 100-10 MG/5ML SYRP 332187 GUAIFENESIN-CO DEINE Inactive ACETAMINOPHEN-CODEINE #3 300-30 MG TABS 1 tablet po q 4-6hrs prn pain ACETAMINOPHEN-CODEINE #3 300-30 MG TABS 241510 ACETAMIN OPHEN-CODEINE Inactive HYDROCODONE-ACETAMINOPHEN 5-325 MG TABS 1 po q 6hr PRN cough 201 05/09/16 HYDROCODONE-ACETAMINOPHEN 5-325 MG TABS 425983 HYDROCODONE-ACETAMINOPHEN Inactive AVELOX 400 MG TABS 1 tab by mouth daily A VELOX 400 MG TABS 739844 MOXIFLOXACIN HCL Inactive CHERATUSSIN AC 100-10 MG/5ML SYRP 1 tsp by mouth every 4 hours as needed for cough CHERATUSSIN AC 100-10 MG/5ML SYRP 738173 GUAIFENESIN-CODEINE Inactive TERBINAFINE HCL 250 MG TABS 1 qDay TERBINAFINE HCL 250 MG TABS 056200 TERBINAFINE HCL Inactive CHERATUSSIN AC 100-10 MG/5ML SYRP 1 tsp by mouth every 4 hours as needed for cough CHERATUSSIN AC 100-10 MG/5ML SYRP 640509 GUAIFENESIN-CODEINE Inactive ACETAMINOPHEN-CODEINE #3 300-30 MG TABS 1 PO Q 4-6 HRS PRN PAIN ACETAMINOPHEN-CODEINE #3 300-30 MG TABS 575912 ACETAMINOPHEN-CODEIN E Inactive CHERATUSSIN AC 100-10 MG/5ML SYRP 1 tsp by mouth every 4 hours as needed for cough CHERATUSSIN AC 100-10 MG/5ML SYRP 246528 GUAIFENESIN-CODEINE Inactive AUGMENTIN 875-125 MG TAB 1 tab by mouth twice daily with food 20 12/03/31 AUGMENTIN 875-125 MG TAB 588230 AMOXICILLIN-POT CLAVULA EFE Inactive CHERATUSSIN AC 100-10 MG/5ML SYRP take one tsp po Q 6hours prn c ough CHERATUSSIN AC 100-10 MG/5ML SYRP 662532 GUAIFENESIN-CO DEINE Inactive PROPRANOLOL HCL 60 MG TABS 1 PO Q D P ROPRANOLOL HCL 60 MG TABS 388351 PROPRANOLOL HCL Inactive TOPAMAX 50 MG TABS take 1 tab po BID for migraines. 12/07/10 TOPAMAX 50 MG TABS 034571 TOPIRAMATE Inactive TOPAMAX 25 MG TABS 1 qHS x 1 week, then 1 BID x 1 week, then 1 qAM and 2 qHS x 1 week, then 2 BID (migraine prevention) TOPAMAX 2 5 MG TABS 238563 TOPIRAMATE Inactive LYRICA 75 MG CAPS TAKE 1 CAPSULE BY MOUTH TWICE DAILY LYRICA 75 MG CAPS PREGABALIN Inactive SYMBICORT 160-4.5 MCG/ACT AERO 2 puffs bid with rinse after 2011 SYMBICORT 160-4.5 MCG/ACT AERO BUDESONIDE-FORMOT SÁNCHEZ FUMARATE Inactive PROMETHAZINE-CODEINE 6.25-10 MG/5ML SYRP 1 tsp by mouth ever y 8 hours prn cough PROMETHAZINE-CODEINE 6.25-10 MG/5ML SYRP 436907 PROMETHAZINE-CODEINE Inactive CYMBALTA 30 MG CPEP 1 cap by mouth daily CYMBALTA 30 MG CPEP 927573 DULOXETINE HCL Inactive PREMARIN 0.625 MG TABS TAKE 1 TAB BY MOUTH DAILY 07/25 PREMARIN 0.625 MG TABS ESTROGENS CONJUGATED Inactive CHERATUSSIN AC 100-10 MG/5ML SYRP 1 tsp by mouth every 4 hours as needed for cough CHERATUSSIN AC 100-10 MG/5ML SYRP 294109 GUAIFENESIN-CODEINE Inactive PROMETHAZINE-CODEINE 6.25-10 MG/5ML SYRP 1 tsp by mout h every 6 hours if needed for cough PROMETHAZINE-CODEINE 6.25-10 MG/5ML SYRP 205110 PROMETHAZINE-CODEINE Inactive CHERATUSSIN AC 100-10 MG/5ML SYRP 1 tsp by mouth every 4 hours as needed for cough CHERATUSSIN AC 100-10 MG/5ML SYRP 775947 GUAIFENESIN-CODEINE Inactive FLUTICASONE PROPIONATE 50 MCG/ACT SUSP 1 to 2 sprays each no stril daily FLUTICASONE PROPIONATE 50 MCG/ACT SUSP 105245 FLUTICASONE PROPIONATE Inactive PREDNISONE 20 MG ORAL TABS 3 tab PO qd x 2d, 2 tab PO qd x 2d, 1 tab PO qd x 2d, 1/2 tab PO qd x 2d PREDNISONE 20 MG ORAL TABS 583037 PREDNISONE Inactive LEVOFLOXACIN 500 MG ORAL TABS 1 tab PO daily x 10 days LEVOFLOXACIN 500 MG ORAL TABS 514347 LEVOFLOXACIN Inactive CYCLOBENZAPRINE HCL 10 MG TABS 1 tablet by mouth BID prn had cherelle n CYCLOBENZAPRINE HCL 10 MG TABS 420841 CYCLOBENZAPRINE H CL Inactive ZOCOR 40 MG TAB 1 tab by mouth daily ZOCOR 40 M G TAB 282069 SIMVASTATIN Inactive ZITHROMAX Z-REYNA 250 MG TABS 2 today, then 1 daily for 4 days 201 04/09/17 ZITHROMAX Z-REYNA 250 MG TABS 3748551 AZITHROMYCIN Inac tive CEFDINIR 300 MG CAPS [...] q days 2-5 ZITHROMAX 250 MG TAB 0582236 AZITHROMYCIN Inactive CEFDINIR 300 MG CAPS by mouth twice a day CEFDINIR 300 MG CAPS 20020704 CEFDINIR Inactive PREDNISONE 20 MG TAB 2 tabs daily for 3 days, 1 t ab daily for 3 days, 1/2 tab daily for 2 days PREDNISONE 20 MG TAB 848179 PREDNISON E Inactive AVELOX 400 MG TABS 1 tab by mouth daily A VELOX 400 MG TABS 278766 MOXIFLOXACIN HCL Inactive AVELOX 400 MG TABS 1 tab by mouth daily A VELOX 400 MG TABS 348749 MOXIFLOXACIN HCL Inactive PREDNISONE 20 MG TAB Take 3 tabs daily for 3 days , 2 tabs daily for 3 days, 1 tab daily for 3 days, 1/2 tab daily for 3 days PREDNISONE 20 MG TAB 181458 PREDNISONE Inactive LEVAQUIN 500 MG TABS take one po QD LEVAQUIN 50 0 MG TABS 644708 LEVOFLOXACIN Inactive AZITHROMYCIN 250 MG TABS 2 po qd x 1 day, then 1 po qd x 4 days AZITHROMYCIN 250 MG TABS 0577097 AZITHROMYCIN Inactiv e MEDROL (REYNA) 4 MG TABS 6 tabs on day 1, 5 tabs on d ay 2, 4 tabs on day 3, 3 tabs on day 4, 2 tabs on day 5, 1 tab on day 6 MEDROL (REYNA) 4 MG TABS 316797 METHYLPREDNISOLONE Inactive CHERATUSSIN AC 100-10 MG/5ML SYRP 5ml po q6hr PRN Cough CHERATUSSIN AC 100-10 MG/5ML SYRP 045723 GUAIFENESIN-CODEINE Inacti ve TRIAMCINOLONE ACETONIDE 0.1 % CREA apply three times daily prn r beatrice TRIAMCINOLONE ACETONIDE 0.1 % CREA 8704007 TRIAMCINOLONE ACETONIDE Inactive AZITHROMYCIN 250 MG TABS 2 po qd x 1 day, then 1 po qd x 4 days AZITHROMYCIN 250 MG TABS 7505904 AZITHROMYCIN Inactiv e MEDROL (REYNA) 4 MG TABS 6 pills x 1 day, then 5 pill s x 1 day then 4 pills x 1 day, then 3 pills x 1 day, then 2 pills x 1 day, then 1 pill x 1 day, then stop MEDROL (REYNA) 4 MG TABS 660176 METHYLPREDNISOLONE Inactive AMOXICILLIN 500 MG CAP 1 tab by mouth 3 times daily x 10 days 20 13/03/08 AMOXICILLIN 500 MG CAP 415122 AMOXICILLIN Inactive AMOXICILLIN 500 MG CAP 1 tab by mouth 3 times daily x 10 days 20 14/04/28 AMOXICILLIN 500 MG CAP 946244 AMOXICILLIN Inactive ZITHROMAX 250 MG TAB 2 po today, then 1 po q days 2-5 ZITHROMAX 250 MG TAB 2268703 AZITHROMYCIN Inactive AUGMENTIN 875-125 MG TAB 1 po BID x 10 days AUGMENTIN 875- 125 MG TAB 087367 AMOXICILLIN-POT CLAVULANATE Inactive ZITHROMAX Z-REYNA 250 MG TABS 2 today, then 1 daily for 4 days 201 08/07/20 ZITHROMAX Z-REYNA 250 MG TABS 3047501 AZITHROMYCIN Inac tive ZITHROMAX 250 MG TAB 2 po today, then 1 po q days 2-5 ZITHROMAX 250 MG TAB 1818408 AZITHROMYCIN Inactive ZITHROMAX Z-REYNA 250 MG TABS 2 today, then 1 daily for 4 days 201 08/30/03 ZITHROMAX Z-REYNA 250 MG TABS 6660454 AZITHROMYCIN Inac tive CEFDINIR 300 MG CAPS 1 po BID x 10 days C EFDINIR 300 MG CAPS 894060 CEFDINIR Inactive ZITHROMAX 250 MG TAB 2 po today, then 1 po q days 2-5 ZITHROMAX 250 MG TAB 2218433 AZITHROMYCIN Inactive LEVAQUIN 500 MG TAB 1 tablet by mouth daily LEVAQUIN 500 MG TAB 797696 LEVOFLOXACIN Inactive Vital Signs Date Name Value [...] Measured Encounters Code Encounter Date Provider Facility CPT-89961 Level 3 Est. Patient 10:11:46 CDT Carlton rich MD [facility] CPT-73863 Level 3 Est. Patient 17:29:43 CDT Italo KHAN [facility] CPT-51892 Level 3 Est. Patient 11:58:06 CDT Italo GRIP ASSEMBLER [facility] CPT-36107 Level 4 Est. Patient 14:36:51 CDT Carlton rich MD [facility] CPT-64449 Level 3 Est. Patient 18:16:00 LONG TERM CARE PHLEBOTOMIST Blaine W Cloven [facility] CPT-44939 Level 3 Est. Patient 09:45:49 LONG TERM CARE PHLEBOTOMIST Carlton rich MD [facility] CPT-70124 Level 3 Est. Patient 13:19:20 CDT Carlton rich MD [facility] CPT-90211 Level 3 Est. Patient 13:06:43 CDT Ridge tam DO [facility] CPT-48038 Level 3 Est. Patient 10:03:07 CDT Perez Mora MD [facility] CPT-83921 Level 3 Est. Patient 19:50:35 LONG TERM CARE PHLEBOTOMIST Carlton rich MD [facility]-24110 Level 4 Est. Patient 18:05:01 LONG TERM CARE PHLEBOTOMIST Carlton rich MD [facility] CPT-96662 Level 3 Est. Patient 10:45:55 LONG TERM CARE PHLEBOTOMIST Hugo Restrepo MD [facility] CPT-51594 Level 3 Est. Patient 14:12:49 CDT Griffin lincoln [facility] CPT-34358 Level 3 Est. Patient 17:37:24 CDT Carlton rich MD [facility] CPT-23025 Level 3 Est. Patient 16:51:54 CDT Carlton rich MD [facility] CPT-07890 Level 3 Est. Patient 12:18:11 CDT Hugo Restrepo MD [facility] CPT-73181 Level 3 Est. Patient 11:30:25 CDT Marcy crisostomo MD PhD [facility]-49023 Level 3 Est. Patient 12:00:47 LONG TERM CARE PHLEBOTOMIST Carlton rich MD [facility]-09904 Level 3 Est. Patient 16:31:06 LONG TERM CARE PHLEBOTOMIST Carlton rich MD [facility]-60781 Level 3 Est. Patient 16:23:24 LONG TERM CARE PHLEBOTOMIST Ridge tam [facility] CPT-60916 Level 3 Est. Patient 12:34:12 CDT Carlton rich MD [facility] CPT-09951 Level 2 Est. Patient 15:43:33 CDT Robi armstrong MD [facility] CPT-32724 Level 4 Est. Patient 14:04:44 CDT Carlton rich MD [facility] CPT-35246 Level 3 Est. Patient 05:47:59 CDT Ridge tam [facility] CPT-36133 Level 3 Est. Patient 13:12:53 LONG TERM CARE PHLEBOTOMIST Carlton rich MD [facility] CPT-89468 Level 3 Est. Patient 14:26:53 CDT Hugo Restrepo MD [facility] Procedures Code Procedure Name Date Entry Date Standard Desc ription CPT-J0696 Rocephin 1gm Inj Solr 14:32:13 CDT CPT-J1020 Depo Medrol 60 mg (Methyl Prednisolone A cetate) 14:32:13 CDT CPT-J1100 Decadron 6mg (Dexamethasone) 14:32:13 CDT 2 CPT-81013 Hip bilat min 2V w AP pelvis 13:16:20 CDT 2 CPT-13223 Pelvis only 13:07:33 CDT CPT-72160 Spec Collection and Handling Fee 11:25:12 C DT CPT-85854 Fluzone Quadrivalent Intramuscular Suspe nsion 0.5 ML 14:31:55 CDT CPT-27979 Abx/Therapy Injection 13:28:47 LONG TERM CARE PHLEBOTOMIST CPT-J2930 Solu Medrol 125 mg (Methyl Prednisolone Sodium Succinate) 12:00:47 LONG TERM CARE PHLEBOTOMIST CPT-07672 Venipuncture Draw Fee 11:33:31 CDT CPT-15600 EKG Trac and Interp 11:21:09 CDT CPT-53561 Chest 2V Frontal and Lat 11:21:09 CDT 12/15 CPT-52723 Venipuncture Draw Fee 08:02:34 CDT CPT-90544 Chest 2V Frontal and Lat 05:47:59 CDT 06/05
--- OUTSIDE RECORDS SUMMARY | 2019-10-08 09:39 | XMS REPORT | Clinical Summary ---
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 Unspecified sinusitis (chronic) Bronchitis-Acute 466.0 Active Carlton [...] tablet by mouth daily prn anxiety ALPRAZOLAM 31108640629 Active Carlton Hu MD Active CYMBALTA 30 MG CPEP 1 cap by mouth daily for depression DULOXETINE HCL 04646704089 Active Carlton Hu MD Active CEFDINIR 300 MG CAPS 1 po BID x 10 days CEFDINI R 43801788978 Active Carlton Hu MD Active ZOCOR 40 MG TAB 1 tab by mouth daily SIMVASTATI N 28858544479 No Longer Active Carlton Hu MD Active CYCLOBENZAPRINE HCL 10 MG TABS 1 tablet by mouth BID prn had cherelle n CYCLOBENZAPRINE HCL 39407464685 No Longer Active Carlton Hu MD Active LEVOFLOXACIN 500 MG ORAL TABS 1 tab PO daily x 10 days LEVOFLOXACIN 02851981018 No Longer Active Carlton Hu MD Acti ve PREDNISONE 20 MG ORAL TABS 3 tab PO qd x 2d, 2 tab PO qd x 2d, 1 tab PO qd x 2d, 1/2 tab PO qd x 2d PREDNISONE 72737599864 No Longer Active Carlton Hu MD Active TUSSIONEX PENNKINETIC ER 10-8 MG/5ML ORAL LQCR 5 mL PO q 12 hrs PRN cough HYDROCOD POLST-CHLORPHEN POLST 07754550289 Active Carlton Hu MD Active FLUTICASONE PROPIONATE 50 MCG/ACT SUSP 1 to 2 sprays each no stril daily FLUTICASONE PROPIONATE 44703482011 No Longer Active T jaz HERNANDEZ Active CHERATUSSIN AC 100-10 MG/5ML SYRP 1 tsp by mouth every 4 hours as needed for cough GUAIFENESIN-CODEINE 20614418952 No Longer Activ e Blaine HERNANDEZ Active PROMETHAZINE-CODEINE 6.25-10 MG/5ML SYRP 1 tsp by mout h every 6 hours if needed for cough PROMETHAZINE-CODEINE 32718824320 No Long er Active Blaine HERNANDEZ Active CHERATUSSIN AC 100-10 MG/5ML SYRP 1 tsp by mouth every 4 hours as needed for cough GUAIFENESIN-CODEINE 18498392444 No Longer Activ Jorge Luis HERNANDEZ Active ZITHROMAX Z-REYNA 250 MG TABS 2 today, then 1 daily for 4 days 201 08/30/03 AZITHROMYCIN 19100655089 No Longer Active Columba Raida Act nael ZITHROMAX 250 MG TAB 2 po today, then 1 po q days 2-5 AZITHROMYCIN 19780942609 No Longer Active Carlton Hu MD Acti ve ZITHROMAX Z-REYNA 250 MG TABS 2 today, then 1 daily for 4 days 201 08/07/20 AZITHROMYCIN 12720418769 No Longer Active Columba Raida Act nael AUGMENTIN 875-125 MG TAB 1 po BID x 10 days AMOXICILLIN- POT CLAVULANATE 90378912902 No Longer Active Diya De Guzman APRN Active ZITHROMAX 250 MG TAB 2 po today, then 1 po q days 2-5 AZITHROMYCIN 37740877863 No Longer Active Carlton Hu MD Acti ve TRAMADOL HCL 50 MG TABS 1 po tid with ES Tylenol TRAMADOL HCL 25504286354 Active Carlton Hu MD Active PREMARIN 0.625 MG TABS TAKE 1 TAB BY MOUTH DAILY 07/25 ESTROGENS CONJUGATED 20499257252 No Longer Active Ridge Bess DO Active CYMBALTA 30 MG CPEP 1 cap by mouth daily DULOXE SNEHA HCL 08960310961 No Longer Active Ridge Bess DO Active AMOXICILLIN 500 MG CAP 1 tab by mouth 3 times daily x 10 days 20 14/04/28 AMOXICILLIN 53961273784 No Longer Active Carlton Hu MD Active AMOXICILLIN 500 MG CAP 1 tab by mouth 3 times daily x 10 days 20 13/03/08 AMOXICILLIN 79482154309 No Longer Active Carlton Hu MD Active PROMETHAZINE-CODEINE 6.25-10 MG/5ML SYRP 1 tsp by mouth ever y 8 hours prn cough PROMETHAZINE-CODEINE 76334514932 No Longer Active Robert Hu MD Active MEDROL (REYNA) 4 MG TABS 6 pills x 1 day, then 5 pill s x 1 day then 4 pills x 1 day, then 3 pills x 1 day, then 2 pills x 1 day, then 1 pill x 1 day, then stop METHYLPREDNISOLONE 78324004846 No Longer Active Parris Mora MD Active AZITHROMYCIN 250 MG TABS 2 po qd x 1 day, then 1 po qd x 4 days AZITHROMYCIN 85950939920 No Longer Active Perez Mora MD Active SYMBICORT 160-4.5 MCG/ACT AERO 2 puffs bid with rinse after 2011 BUDESONIDE-FORMOTEROL FUMARATE 42677188053 No Longer Active Perez Mora MD Active LYRICA 75 MG CAPS TAKE 1 CAPSULE BY MOUTH TWICE DAILY 2013 PREGABALIN 31942054476 No Longer Active Carlton Hu MD Active LYRICA 100 MG CAPS Take 1 tab po BID for fibromyalgia PREGABALIN 41510160956 Active Carlton Hu MD Active TOPAMAX 25 MG TABS 1 qHS x 1 week, then 1 BID x 1 week, then 1 qAM and 2 qHS x 1 week, then 2 BID (migraine prevention) TOPIRAMAT E 52867540151 No Longer Active Jerica FUENTES Active TOPAMAX 50 MG TABS take 1 tab po BID for migraines. 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 CHERATUSSIN AC 100-10 MG/5ML SYRP 5ml po q6hr PRN Cough GUAIFENESIN-CODEINE 49141241284 No Longer Active Carlton Hu MD Active MEDROL (REYNA) 4 MG TABS 6 tabs on day 1, 5 tabs on d ay 2, 4 tabs on day 3, 3 tabs on day 4, 2 tabs on day 5, 1 tab on day 6 METHYLPREDNISOLONE 72832340970 No Longer Active Perez Mora MD Active AZITHROMYCIN 250 MG TABS 2 po qd x 1 day, then 1 po qd x 4 days AZITHROMYCIN 60271000933 No Longer Active Perez Mora MD Active PROPRANOLOL HCL 60 MG TABS 1 PO Q D PROPRANOL OL HCL 32884059624 No Longer Active Perez Mora MD Active CHERATUSSIN AC 100-10 MG/5ML SYRP take one tsp po Q 6hours prn c ough GUAIFENESIN-CODEINE 06376076547 No Longer Active Perez Means Active AUGMENTIN 875-125 MG TAB 1 tab by mouth twice daily with food 20 12/03/31 AMOXICILLIN-POT CLAVULANATE 58575397915 No Longer Active Chanel Mora MD Active CHERATUSSIN AC 100-10 MG/5ML SYRP 1 tsp by mouth every 4 hours as needed for cough GUAIFENESIN-CODEINE 99436908321 No Longer Activ e Hugo Restrepo MD Active ACETAMINOPHEN-CODEINE #3 300-30 MG TABS 1 PO Q 4-6 HRS PRN PAIN ACETAMINOPHEN-CODEINE 78339936437 No Longer Active Hugo Restrepo MD Active LEVAQUIN 500 MG TABS take one po QD LEVOFLOXACI N 17302533517 No Longer Active Griffin HERNANDEZ Active PREDNISONE 20 MG TAB Take 3 tabs daily for 3 days , 2 tabs daily for 3 days, 1 tab daily for 3 days, 1/2 tab daily for 3 days P REDNISONE 74313375412 No Longer Active Carlton Hu MD Active AVELOX 400 MG TABS 1 tab by mouth daily MOXIFLO XACIN HCL 61273657289 No Longer Active Carlton Hu MD Active CHERATUSSIN AC 100-10 MG/5ML SYRP 1 tsp by mouth every 4 hours as needed for cough GUAIFENESIN-CODEINE 41027302609 No Longer Activ e Hugo Restrepo MD Active AVELOX 400 MG TABS 1 tab by mouth daily MOXIFLO XACIN HCL 54231656521 No Longer Active Marcy De La Rosa MD PhD Active TERBINAFINE HCL 250 MG TABS 1 qDay TERBINAF INE HCL 95161338937 No Longer Active Marcy De La Rosa MD PhD Active CHERATUSSIN AC 100-10 MG/5ML SYRP 1 tsp by mouth every 4 hours as needed for cough GUAIFENESIN-CODEINE 18234132472 No Longer Activ e Marcy De La Rosa MD PhD Active AVELOX 400 MG TABS 1 tab by mouth daily MOXIFLO XACIN HCL 78607986855 No Longer Active Marcy De La Rosa MD PhD Active HYDROCODONE-ACETAMINOPHEN 5-325 MG TABS 1 po q 6hr PRN cough 201 05/09/16 HYDROCODONE-ACETAMINOPHEN 30533051308 No Longer Active Marcy De La Rosa MD PhD Active PREDNISONE 20 MG TAB 2 tabs daily for 3 days, 1 t ab daily for 3 days, 1/2 tab daily for 2 days PREDNISONE 43575584151 No Longer Active Carlton Hu MD Active CEFDINIR 300 MG CAPS by mouth twice a day CEFDI ODILIA 04103506304 No Longer Active Carlton Hu MD Active HYDROCHLOROTHIAZIDE 25 MG TABS 1 TAB PO DAILY H YDROCHLOROTHIAZIDE 93235135629 Active Carlton Hu MD Active ACETAMINOPHEN-CODEINE #3 300-30 MG TABS 1 tablet po q 4-6hrs prn pain ACETAMINOPHEN-CODEINE 38759641111 No Longer Active Ridge Bess DO Active ZITHROMAX 250 MG TAB 2 po today, then 1 po q days 2-5 AZITHROMYCIN 46905731687 No Longer Active Carlton Hu MD Acti ve CHERATUSSIN AC 100-10 MG/5ML SYRP take 1 tsp po q4-6 hours prn c ough GUAIFENESIN-CODEINE 33591903516 No Longer Active Carlton Hu MD Active ACETAMINOPHEN-CODEINE #3 300-30 MG TABS 1 PO Q 4-6 HR PRN PAIN 2 ACETAMINOPHEN-CODEINE 27379284416 No Longer Active Carlton rich MD Active LORTAB 7.5-500 MG/15ML ELIX 7.5 ml po q 4 hour prn cough HYDROCODONE-ACETAMINOPHEN 50447819039 No Longer Active Carlton Hu MD Active PREDNISONE 20 MG TAB 1 po bid 3 days, then 1 po q day 3 days 201 05/03/07 PREDNISONE 69738584309 No Longer Active Carlton Hu MD Active ELMIRON 100 MG CAPS 2 tablets in the am and 1 tablet at hs PENTOSAN POLYSULFATE SODIUM 74951296601 Active Carlton Hu MD Ac tive CEFDINIR 300 MG CAPS by mouth twice a day CEFDI ODILIA 33069325420 No Longer Active Carlton Hu MD Active CEFDINIR 300 MG CAPS by mouth twice a day CEFDI ODILIA 42914515018 No Longer Active Carlton Hu MD Active CEFDINIR 300 MG CAPS by mouth twice a day CEFDI ODILIA 88881765764 No Longer Active Carlton Hu MD Active TESSALON PERLES 100 MG CAP 1 tablet by mouth 3 times daily a s needed for cough BENZONATATE 18064594577 No Longer Active Carlton bustamante MD Active CEFDINIR 300 MG CAPS by mouth twice a day CEFDI ODILIA 82327398951 No Longer Active Carlton Hu MD Active ZITHROMAX Z-REYNA 250 MG TABS 2 today, then 1 daily for 4 days 201 04/09/17 AZITHROMYCIN 56961101265 No Longer Active Hugo Restrepo MD Active TESSALON PERLES 100 MG CAP 1 tablet by mouth 3 times daily a s needed for cough TESSALON PERLES 100 MG CAP 756521 BENZONATATE I nactive PREDNISONE 20 MG TAB 1 po bid 3 days, then 1 po q day 3 days 201 05/03/07 PREDNISONE 20 MG TAB 045096 PREDNISONE Inactive LORTAB 7.5-500 MG/15ML ELIX 7.5 ml po q 4 hour prn cough LORTAB 7.5-500 MG/15ML ELIX HYDROCODONE-ACETAMINOPHEN Inacti ve ACETAMINOPHEN-CODEINE #3 300-30 MG TABS 1 PO Q 4-6 HR PRN PAIN 2 ACETAMINOPHEN-CODEINE #3 300-30 MG TABS 492002 ACETAMIN OPHEN-CODEINE Inactive CHERATUSSIN AC 100-10 MG/5ML SYRP take 1 tsp po q4-6 hours prn c ough CHERATUSSIN AC 100-10 MG/5ML SYRP 748873 GUAIFENESIN-CO DEINE Inactive ACETAMINOPHEN-CODEINE #3 300-30 MG TABS 1 tablet po q 4-6hrs prn pain ACETAMINOPHEN-CODEINE #3 300-30 MG TABS 523854 ACETAMIN OPHEN-CODEINE Inactive HYDROCODONE-ACETAMINOPHEN 5-325 MG TABS 1 po q 6hr PRN cough 201 05/09/16 HYDROCODONE-ACETAMINOPHEN 5-325 MG TABS 089412 HYDROCODONE-ACETAMINOPHEN Inactive AVELOX 400 MG TABS 1 tab by mouth daily A VELOX 400 MG TABS 231253 MOXIFLOXACIN HCL Inactive CHERATUSSIN AC 100-10 MG/5ML SYRP 1 tsp by mouth every 4 hours as needed for cough CHERATUSSIN AC 100-10 MG/5ML SYRP 202318 GUAIFENESIN-CODEINE Inactive TERBINAFINE HCL 250 MG TABS 1 qDay TERBINAFINE HCL 250 MG TABS 260298 TERBINAFINE HCL Inactive CHERATUSSIN AC 100-10 MG/5ML SYRP 1 tsp by mouth every 4 hours as needed for cough CHERATUSSIN AC 100-10 MG/5ML SYRP 037754 GUAIFENESIN-CODEINE Inactive ACETAMINOPHEN-CODEINE #3 300-30 MG TABS 1 PO Q 4-6 HRS PRN PAIN ACETAMINOPHEN-CODEINE #3 300-30 MG TABS 210915 ACETAMINOPHEN-CODEIN E Inactive CHERATUSSIN AC 100-10 MG/5ML SYRP 1 tsp by mouth every 4 hours as needed for cough CHERATUSSIN AC 100-10 MG/5ML SYRP 192595 GUAIFENESIN-CODEINE Inactive AUGMENTIN 875-125 MG TAB 1 tab by mouth twice daily with food 20 12/03/31 AUGMENTIN 875-125 MG TAB 714703 AMOXICILLIN-POT CLAVULA EFE Inactive CHERATUSSIN AC 100-10 MG/5ML SYRP take one tsp po Q 6hours prn c ough CHERATUSSIN AC 100-10 MG/5ML SYRP 027134 GUAIFENESIN-CO DEINE Inactive PROPRANOLOL HCL 60 MG TABS 1 PO Q D P ROPRANOLOL HCL 60 MG TABS 462865 PROPRANOLOL HCL Inactive TOPAMAX 50 MG TABS take 1 tab po BID for migraines. 12/07/10 TOPAMAX 50 MG TABS 390895 TOPIRAMATE Inactive TOPAMAX 25 MG TABS 1 qHS x 1 week, then 1 BID x 1 week, then 1 qAM and 2 qHS x 1 week, then 2 BID (migraine prevention) TOPAMAX 2 5 MG TABS 281267 TOPIRAMATE Inactive LYRICA 75 MG CAPS TAKE 1 CAPSULE BY MOUTH TWICE DAILY LYRICA 75 MG CAPS PREGABALIN Inactive SYMBICORT 160-4.5 MCG/ACT AERO 2 puffs bid with rinse after 2011 SYMBICORT 160-4.5 MCG/ACT AERO BUDESONIDE-FORMOT SÁNCHEZ FUMARATE Inactive PROMETHAZINE-CODEINE 6.25-10 MG/5ML SYRP 1 tsp by mouth ever y 8 hours prn cough PROMETHAZINE-CODEINE 6.25-10 MG/5ML SYRP 463174 PROMETHAZINE-CODEINE Inactive CYMBALTA 30 MG CPEP 1 cap by mouth daily CYMBALTA 30 MG CPEP 232529 DULOXETINE HCL Inactive PREMARIN 0.625 MG TABS TAKE 1 TAB BY MOUTH DAILY 07/25 PREMARIN 0.625 MG TABS ESTROGENS CONJUGATED Inactive CHERATUSSIN AC 100-10 MG/5ML SYRP 1 tsp by mouth every 4 hours as needed for cough CHERATUSSIN AC 100-10 MG/5ML SYRP 723480 GUAIFENESIN-CODEINE Inactive PROMETHAZINE-CODEINE 6.25-10 MG/5ML SYRP 1 tsp by mout h every 6 hours if needed for cough PROMETHAZINE-CODEINE 6.25-10 MG/5ML SYRP 711893 PROMETHAZINE-CODEINE Inactive CHERATUSSIN AC 100-10 MG/5ML SYRP 1 tsp by mouth every 4 hours as needed for cough CHERATUSSIN AC 100-10 MG/5ML SYRP 100750 GUAIFENESIN-CODEINE Inactive FLUTICASONE PROPIONATE 50 MCG/ACT SUSP 1 to 2 sprays each no stril daily FLUTICASONE PROPIONATE 50 MCG/ACT SUSP 261118 FLUTICASONE PROPIONATE Inactive PREDNISONE 20 MG ORAL TABS 3 tab PO qd x 2d, 2 tab PO qd x 2d, 1 tab PO qd x 2d, 1/2 tab PO qd x 2d PREDNISONE 20 MG ORAL TABS 261372 PREDNISONE Inactive LEVOFLOXACIN 500 MG ORAL TABS 1 tab PO daily x 10 days LEVOFLOXACIN 500 MG ORAL TABS 608909 LEVOFLOXACIN Inactive CYCLOBENZAPRINE HCL 10 MG TABS 1 tablet by mouth BID prn had cherelle n CYCLOBENZAPRINE HCL 10 MG TABS 289384 CYCLOBENZAPRINE H CL Inactive ZOCOR 40 MG TAB 1 tab by mouth daily ZOCOR 40 M G TAB 772457 SIMVASTATIN Inactive ZITHROMAX Z-REYNA 250 MG TABS 2 today, then 1 daily for 4 days 201 04/09/17 ZITHROMAX Z-REYNA 250 MG TABS 2022870 AZITHROMYCIN Inac tive CEFDINIR 300 MG CAPS by mouth twice a day CEFDINIR 300 MG CAPS 20020704 CEFDINIR Inactive CEFDINIR 300 MG CAPS by mouth twice a day CEFDINIR 300 MG CAPS 20020704 CEFDINIR Inactive CEFDINIR 300 MG CAPS by mouth twice a day CEFDINIR 300 MG CAPS 845482 CEFDINIR Inactive CEFDINIR 300 MG CAPS by mouth twice a day CEFDINIR 300 MG CAPS 365056 CEFDINIR Inactive ZITHROMAX 250 MG TAB 2 po today, then 1 po q days 2-5 ZITHROMAX 250 MG TAB 4497491 AZITHROMYCIN Inactive CEFDINIR 300 MG CAPS by mouth twice a day CEFDINIR 300 MG CAPS 20020704 CEFDINIR Inactive PREDNISONE 20 MG TAB 2 tabs daily for 3 days, 1 t ab daily for 3 days, 1/2 tab daily for 2 days PREDNISONE 20 MG TAB 822750 PREDNISON E Inactive AVELOX 400 MG TABS 1 tab by mouth daily A VELOX 400 MG TABS 213739 MOXIFLOXACIN HCL Inactive AVELOX 400 MG TABS 1 tab by mouth daily A VELOX 400 MG TABS 629125 MOXIFLOXACIN HCL Inactive PREDNISONE 20 MG TAB Take 3 tabs daily for 3 days , 2 tabs daily for 3 days, 1 tab daily for 3 days, 1/2 tab daily for 3 days PREDNISONE 20 MG TAB 436378 PREDNISONE Inactive LEVAQUIN 500 MG TABS take one po QD LEVAQUIN 50 0 MG TABS 323906 LEVOFLOXACIN Inactive AZITHROMYCIN 250 MG TABS 2 po qd x 1 day, then 1 po qd x 4 days AZITHROMYCIN 250 MG TABS 1266935 AZITHROMYCIN Inactiv e MEDROL (REYNA) 4 MG TABS 6 tabs on day 1, 5 tabs on d ay 2, 4 tabs on day 3, 3 tabs on day 4, 2 tabs on day 5, 1 tab on day 6 MEDROL (REYNA) 4 MG TABS METHYLPREDNISOLONE Inactive CHERATUSSIN AC 100-10 MG/5ML SYRP 5ml po q6hr PRN Cough CHERATUSSIN AC 100-10 MG/5ML SYRP 255071 GUAIFENESIN-CODEINE Inacti ve TRIAMCINOLONE ACETONIDE 0.1 % CREA apply three times daily prn r beatrice TRIAMCINOLONE ACETONIDE 0.1 % CREA 3929717 TRIAMCINOLONE ACETONIDE Inactive AZITHROMYCIN 250 MG TABS 2 po qd x 1 day, then 1 po qd x 4 days AZITHROMYCIN 250 MG TABS 2419249 AZITHROMYCIN Inactiv e MEDROL (REYNA) 4 MG [...] days 20 13/03/08 AMOXICILLIN 500 MG CAP 502389 AMOXICILLIN Inactive AMOXICILLIN 500 MG CAP 1 tab by mouth 3 times daily x 10 days 20 14/04/28 AMOXICILLIN 500 MG CAP 036938 AMOXICILLIN Inactive ZITHROMAX 250 MG TAB 2 po today, then 1 po q days 2-5 ZITHROMAX 250 MG TAB 6211197 AZITHROMYCIN Inactive AUGMENTIN 875-125 MG TAB 1 po BID x 10 days AUGMENTIN 875- 125 MG TAB 602829 AMOXICILLIN-POT CLAVULANATE Inactive ZITHROMAX Z-REYNA 250 MG TABS 2 today, then 1 daily for 4 days 201 08/07/20 ZITHROMAX Z-REYNA 250 MG TABS 4319534 AZITHROMYCIN Inac tive ZITHROMAX 250 MG TAB 2 po today, then 1 po q days 2-5 ZITHROMAX 250 MG TAB 1269353 AZITHROMYCIN Inactive ZITHROMAX Z-REYNA 250 MG TABS 2 today, then 1 daily for 4 days 201 08/30/03 ZITHROMAX Z-REYNA 250 MG TABS 1665494 AZITHROMYCIN Inac tive Vital Signs Date Name [...] Measured Encounters Code Encounter Date Provider Facility CPT-53622 Level 4 Est. Patient 14:36:51 CDT Carlton rich MD [facility] CPT-90498 Level 3 Est. Patient 18:16:00 OPHTHALMOLOGY TECHNICIAN Blaine HERNANDEZ [facility] CPT-81109 Level 3 Est. Patient 09:45:49 OPHTHALMOLOGY TECHNICIAN Carlton rich MD [facility] CPT-79255 Level 3 Est. Patient 13:19:20 CDT Carlton rich MD [facility] CPT-13955 Level 3 Est. Patient 13:06:43 CDT Ridge tam DO [facility] CPT-63142 Level 3 Est. Patient 10:03:07 CDT Perez Mora MD [facility] CPT-90955 Level 3 Est. Patient 19:50:35 OPHTHALMOLOGY TECHNICIAN Carlton rich MD [facility] CPT-88656 Level 4 Est. Patient 18:05:01 OPHTHALMOLOGY TECHNICIAN Carlton rich MD [facility] CPT-57223 Level 3 Est. Patient 10:45:55 OPHTHALMOLOGY TECHNICIAN Hugo Restrepo MD [facility] CPT-73822 Level 3 Est. Patient 14:12:49 CDT Griffin HERNANDEZ [facility] CPT-15314 Level 3 Est. Patient 17:37:24 CDT Carlton rich MD [facility] CPT-05334 Level 3 Est. Patient 16:51:54 CDT Carlton rich MD [facility] CPT-53017 Level 3 Est. Patient 12:18:11 CDT Hugo Restrepo MD [facility] CPT-88520 Level 3 Est. Patient 11:30:25 CDT Marcy crisostomo MD PhD [facility] CPT-55474 Level 3 Est. Patient 12:00:47 OPHTHALMOLOGY TECHNICIAN Carlton rich MD [facility] CPT-90537 Level 3 Est. Patient 16:31:06 OPHTHALMOLOGY TECHNICIAN Carlton rich MD [facility] CPT-79903 Level 3 Est. Patient 16:23:24 OPHTHALMOLOGY TECHNICIAN Ridge tam DO [facility] CPT-37890 Level 3 Est. Patient 12:34:12 CDT Carlton rich MD [facility] CPT-26765 Level 2 Est. Patient 15:43:33 CDT Robi armstrong MD [facility] CPT-49141 Level 4 Est. Patient 14:04:44 CDT Carlton rich MD [facility] CPT-38551 Level 3 Est. Patient 05:47:59 CDT Ridge tam DO [facility] CPT-21164 Level 3 Est. Patient 13:12:53 OPHTHALMOLOGY TECHNICIAN Carlton rich MD [facility] CPT-70543 Level 3 Est. Patient 14:26:53 CDT Hugo Restrepo MD [facility] Procedures Code Procedure Name Date Entry Date Standard Desc ription CPT-25608 Hip bilat min 2V w AP pelvis 13:16:20 CDT 2 CPT-66337 Pelvis only 13:07:33 CDT CPT-27088 Spec Collection and Handling Fee 11:25:12 C DT CPT-99299 Fluzone Quadrivalent Intramuscular Suspe nsion 0.5 ML 14:31:55 CDT CPT-40831 Abx/Therapy Injection 13:28:47 OPHTHALMOLOGY TECHNICIAN CPT-J2930 Solu Medrol 125 mg (Methyl Prednisolone Sodium Succinate) 12:00:47 OPHTHALMOLOGY TECHNICIAN CPT-32658 Venipuncture Draw Fee 11:33:31 CDT CPT-60020 EKG Trac and Interp 11:21:09 CDT CPT-68741 Chest 2V Frontal and Lat 11:21:09 CDT 12/15 CPT-61120 Venipuncture Draw Fee 08:02:34 CDT CPT-55344 Chest 2V Frontal and Lat 05:47:59 CDT 06/05
--- OUTSIDE RECORDS SUMMARY | 2019-10-08 09:40 | XMS REPORT | Clinical Summary ---
Author Author Caitlin, Juliana Martinez Organization [facility] Address Unknown Phone Unavailable [...] MD 201 04/09/17 MAXILLARY SINUSITIS ICD-473.0 Inactive Macry De La Rosa MD PhD BRONCHITIS, ACUTE [...] Ph D CONTACT DERMATITIS ICD-692.9 Inactive Marcy cirsostomo MD PhD SINUSITIS, ACUTE ICD-461.9 Inactive Hugo [...] MG ORAL TABLET 1 po qd ASPIRIN 01312663369 Active Carlton Hu MD Active PREDNISONE 20 MG ORAL TABLET 1 tab twice daily for 3 d ay, then one daily for three days PREDNISONE 40839123816 No Longer Active Carlton Hu MD Active AUGMENTIN 875-125 MG ORAL TABLET 1 po BID x 10 days 20 16/03/22 AMOXICILLIN-POT CLAVULANATE 06686945319 No Longer Active Elise Whitmore APRN Active TERBINAFINE HCL 250 MG ORAL TABLET 1 qDay for nail fungus 7 TERBINAFINE HCL 84520737244 No Longer Active Carlton Hu MD A ctive TUSSIONEX PENNKINETIC ER 10-8 MG/5ML ORAL SUSPENSION E XTENDED RELEASE 5ml po q12hr PRN Cough HYDROCOD POLST-CHLORPHEN POLST 10578495868 Active Carlton Hu MD Active AMOXICILLIN 500 MG ORAL CAPSULE 1 cap by mouth three times a day AMOXICILLIN 09704859940 No Longer Active Carlton Hu MD Active ELMIRON 100 MG ORAL CAPSULE 2 tablets in the am and 1 tablet at hs PENTOSAN POLYSULFATE SODIUM 10241257406 No Longer Active Robert Hu MD Active MUCINEX D 60-600 MG ORAL TABLET EXTENDED RELEASE 12 HOUR 1 t ab po q am PSEUDOEPHEDRINE-GUAIFENESIN 94466877860 No Longer Act nael Carlton Hu MD Active MUCINEX DM MAXIMUM STRENGTH 60-1200 MG ORAL TABLET EXT ENDED RELEASE 12 HOUR 1 tab po q am DEXTROMETHORPHAN-GUAIFENESIN 49024003427 No Longer Active Carlton Hu MD Active TUSSIONEX PENNKINETIC ER 10-8 MG/5ML ORAL SUSPENSION E XTENDED RELEASE 5ml po q12hr PRN Cough HYDROCOD POLST-CHLORPHEN POLST 5 0295089813 No Longer Active Carlton Hu MD Active POTASSIUM CHLORIDE ER 20 MEQ ORAL TABLET EXTENDED RELE ASE Take 1 by mouth 4 times daily for 7 days POTASSIUM CHLORIDE 31119281761 No Longer Active Carlton Hu MD Active ZITHROMAX 250 MG ORAL TABLET 2 po today, then 1 po q days 2-5 20 14/09/04 AZITHROMYCIN 61582454666 No Longer Active Elise Whitmore APRN Active TUSSIONEX PENNKINETIC ER 10-8 MG/5ML ORAL SUSPENSION E XTENDED RELEASE 5 ml twice a day as needed for cough HYDROCOD POLST-CHLORPH EN POLST 05794684706 No Longer Active Elise Whitmore APRN Active MONTELUKAST SODIUM 10 MG ORAL TABLET 1 po daily for Allergy MONTELUKAST SODIUM 96398814475 Active Carlton Hu MD Ac tive TUSSIONEX PENNKINETIC ER 10-8 MG/5ML ORAL SUSPENSION E XTENDED RELEASE 5ml po q12hr PRN Cough HYDROCOD POLST-CHLORPHEN POLST 5 0285628560 No Longer Active Hugo Restrepo MD Active GABAPENTIN 100 MG ORAL CAPSULE 1 po BID for fibromyalgia GABAPENTIN 21424098911 Active Carlton Hu MD Active LYRICA 100 MG ORAL CAPSULE Take 1 tab po BID for fibromyalgia 20 11/08/21 PREGABALIN 94062174484 No Longer Active Elise Whitmore APRN Active PROAIR HFA 108 (90 Base) MCG/ACT INHALATION AEROSOL SO LUTION 2 puffs four times a day as needed ALBUTEROL SULFATE 27346798025 Active Lyndsay Whitmore APRN Active PREDNISONE 20 MG ORAL TABLET 2 tabs daily for 3 days, 1 tab daily for 3 days, 1/2 tab daily for 2 days PREDNISONE 91870659134 No Longer Active Jillina Frakerriel BILL Active TUSSIONEX PENNKINETIC ER 10-8 MG/5ML ORAL SUSPENSION E XTENDED RELEASE 5 mL PO q 12 hrs PRN cough HYDROCOD POLST-CHLORPHEN POLST 238751 21568 No Longer Active Jillina Frazell CREAM DIPPER Active FLUTICASONE PROPIONATE 50 MCG/ACT NASAL SUSPENSION 2 s prays each nostril daily until bottle is empty FLUTICASONE PROPIONATE 123251235 99 No Longer Active Jillina Frazell CREAM DIPPER Active ASMANEX 60 METERED DOSES 220 MCG/INH INHALATION AEROSO L POWDER BREATH ACTIVATED 1 puff bid with rinse after MOMETASONE FUROATE 7629196 4102 No Longer Active Diya De Guzman APRN Active ZITHROMAX Z-REYNA 250 MG ORAL TABLET 2 today, then 1 daily for 4 d ays AZITHROMYCIN 79871543298 No Longer Active Elise Whitmore APRN Active TUSSIONEX PENNKINETIC ER 10-8 MG/5ML ORAL SUSPENSION E XTENDED RELEASE 5ml po q12hr PRN Cough HYDROCOD POLST-CHLORPHEN POLST 5 1840273458 No Longer Active Elise Whitmore APRN Active PREDNISONE 20 MG ORAL TABLET 2 tabs daily for 3 days, 1 tab daily for 3 days, 1/2 tab daily for 2 days PREDNISONE 00752512572 No Longer Active Diya De Guzman APRN Active AMOXICILLIN 500 MG ORAL CAPSULE 2 po BID x 10 days 201 09/29/08 AMOXICILLIN 57200858308 No Longer Active Diya De Guzman APRN Act nael SINGULAIR 10 MG ORAL TABLET 1 po qday for allergies 20 14/01/12 MONTELUKAST SODIUM 43194199731 No Longer Active Carlton Hu MD Active LEVAQUIN 500 MG ORAL TABLET 1 tablet by mouth daily 20 13/09/24 LEVOFLOXACIN 52366880205 No Longer Active Carlton Hu MD Acti ve FLUTICASONE PROPIONATE 50 MCG/ACT NASAL SUSPENSION 2 s prays each nostril daily for 2 weeks, then 1 spray each nostril daily. FLUTICASONE PROPIONATE 70375352642 Active Elise Whitmore APRN Active ZITHROMAX 250 MG ORAL TABLET 2 po today, then 1 po q days 2-5 20 13/08/10 AZITHROMYCIN 18111950085 No Longer Active Elise Whitmore APRN Active XANAX 0.5 MG ORAL TABLET one tablet by mouth daily prn anxiety 2015 ALPRAZOLAM 25447083763 Active Carlton Hu MD Active CYMBALTA 30 MG ORAL CAPSULE DELAYED RELEASE PARTICLES 1 cap by mouth daily for depression DULOXETINE HCL 33472489678 Active Carlton beltrán MD Active CEFDINIR 300 MG ORAL CAPSULE 1 po BID x 10 days CEFDINIR 41573191668 No Longer Active Carlton Hu MD Active ZOCOR 40 MG ORAL TABLET 1 tab by mouth daily SI MVASTATIN 21889362885 No Longer Active Carlton Hu MD Active CYCLOBENZAPRINE HCL 10 MG ORAL TABLET 1 tablet by mouth BID prn had pain CYCLOBENZAPRINE HCL 83059967707 No Longer Active Jayden Hu MD Active LEVOFLOXACIN 500 MG ORAL TABLET 1 tab PO daily x 10 days LEVOFLOXACIN 50178736510 No Longer Active Carlton Hu MD Acti ve PREDNISONE 20 MG ORAL TABLET 3 tab PO qd x 2d, 2 tab P O qd x 2d, 1 tab PO qd x 2d, 1/2 tab PO qd x 2d PREDNISONE 67913061406 No Lo nger Active Carlton Hu MD Active FLUTICASONE PROPIONATE 50 MCG/ACT NASAL SUSPENSION 1 t o 2 sprays each nostril daily FLUTICASONE PROPIONATE 16291365307 No Longer Ac tive Blaine HERNANDEZ Active CHERATUSSIN AC 100-10 MG/5ML ORAL SYRUP 1 tsp by mouth every 4 hours as needed for cough GUAIFENESIN-CODEINE 95816434980 No Longe r Active Blaine HERNANDEZ Active PROMETHAZINE-CODEINE 6.25-10 MG/5ML ORAL SYRUP 1 tsp b y mouth every 6 hours if needed for cough PROMETHAZINE-CODEINE 88297474206 No Longer Active Blaine HERNANDEZ Active CHERATUSSIN AC 100-10 MG/5ML ORAL SYRUP 1 tsp by mouth every 4 hours as needed for cough GUAIFENESIN-CODEINE 13816215705 No Longe r Active Blaine HERNANDEZ Active ZITHROMAX Z-REYNA 250 MG ORAL TABLET 2 today, then 1 daily for 4 d ays AZITHROMYCIN 84124061945 No Longer Active Columba Raida Act nael ZITHROMAX 250 MG ORAL TABLET 2 po today, then 1 po q days 2-5 20 14/03/21 AZITHROMYCIN 73124154626 No Longer Active Carlton Hu MD Active ZITHROMAX Z-REYNA 250 MG ORAL TABLET 2 today, then 1 daily for 4 d ays AZITHROMYCIN 60815213803 No Longer Active Columba Raida Act nael AUGMENTIN 875-125 MG ORAL TABLET 1 po BID x 10 days 13/01/20 AMOXICILLIN-POT CLAVULANATE 05364622124 No Longer Active Diya De Guzman APRN Active ZITHROMAX 250 MG ORAL TABLET 2 po today, then 1 po q days 2-5 12/08/14 AZITHROMYCIN 61517026055 No Longer Active Carlton Hu MD Active TRAMADOL HCL 50 MG ORAL TABLET 1 po tid with ES Tylenol TRAMADOL HCL 02786135614 Active Carlton Hu MD Active PREMARIN 0.625 MG ORAL TABLET TAKE 1 TAB BY MOUTH DAILY ESTROGENS CONJUGATED 96132609002 No Longer Active Ridge Bess DO A ctive CYMBALTA 30 MG ORAL CAPSULE DELAYED RELEASE PARTICLES 1 cap by mouth daily DULOXETINE HCL 99422305124 No Longer Active Ridge tam DO Active AMOXICILLIN 500 MG ORAL CAPSULE 1 tab by mouth 3 times daily x 10 days AMOXICILLIN 16680255553 No Longer Active Carlton bustamante MD Active AMOXICILLIN 500 MG ORAL CAPSULE 1 tab by mouth 3 times daily x 10 days AMOXICILLIN 27566710405 No Longer Active Carlton bustamante MD Active PROMETHAZINE-CODEINE 6.25-10 MG/5ML ORAL SYRUP 1 tsp b y mouth every 8 hours prn cough PROMETHAZINE-CODEINE 80656195461 No Longer Acti ve Carlton Hu MD Active MEDROL 4 MG ORAL TABLET THERAPY PACK 6 pills x 1 day, then 5 pills x 1 day then 4 pills x 1 day, then 3 pills x 1 day, then 2 pills x 1 day, then 1 pill x 1 day, then stop METHYLPREDNISOLONE 78328119398 No Long er Active Perez Mora MD Active AZITHROMYCIN 250 MG ORAL TABLET 2 po qd x 1 day, then 1 po q d x 4 days AZITHROMYCIN 20807157057 No Longer Active Perez Ambriz MD Active SYMBICORT 160-4.5 MCG/ACT INHALATION AEROSOL 2 puffs bid wit h rinse after BUDESONIDE-FORMOTEROL FUMARATE 96323556730 N o Longer Active Perez Mora MD Active LYRICA 75 MG ORAL CAPSULE TAKE 1 CAPSULE BY MOUTH TWICE DAILY PREGABALIN 76542373640 No Longer Active Carlton Hu MD Acti ve TOPAMAX 25 MG ORAL TABLET 1 qHS x 1 week, then 1 BID x 1 week, then 1 qAM and 2 qHS x 1 week, then 2 BID (migraine prevention) T OPIRAMATE 99142342088 No Longer Active Jerica FUENTES Active TOPAMAX 50 MG ORAL TABLET take 1 tab po BID for migraines. 07/02 TOPIRAMATE 44643113768 No Longer Active Jerica FUENTES Active TOPAMAX 100 MG ORAL TABLET Take 1 tablet po bid TO PIRAMATE 44654572540 Active Carlton Hu MD Active TRIAMCINOLONE ACETONIDE 0.1 % EXTERNAL CREAM apply three roger es daily prn rash TRIAMCINOLONE ACETONIDE 53085668337 No Longer Active Carlton Hu MD Active PAXIL 40 MG ORAL TABLET take 1 tab po qday for depression 0 PAROXETINE HCL 25072958411 Active Carlton Hu MD Active CHERATUSSIN AC 100-10 MG/5ML ORAL SYRUP 5ml po q6hr PRN Cough 20 13/04/14 GUAIFENESIN-CODEINE 80914327888 No Longer Active Carlton Hu MD Active MEDROL 4 MG ORAL TABLET THERAPY PACK 6 tabs on day 1, 5 tabs on day 2, 4 tabs on day 3, 3 tabs on day 4, 2 tabs on day 5, 1 tab on day 6 2013 METHYLPREDNISOLONE 63492586036 No Longer Active Perez Mora MD Active AZITHROMYCIN 250 MG ORAL TABLET 2 po qd x 1 day, then 1 po q d x 4 days AZITHROMYCIN 91902384762 No Longer Active Perez Ambriz MD Active PROPRANOLOL HCL 60 MG ORAL TABLET 1 PO Q D PROPRANOLOL HCL 74031897041 No Longer Active Perez Mora MD Activ e CHERATUSSIN AC 100-10 MG/5ML ORAL SYRUP take one tsp po Q 6h ours prn cough GUAIFENESIN-CODEINE 54184359175 No Longer Active Zia Mora MD Active AUGMENTIN 875-125 MG ORAL TABLET 1 tab by mouth twice daily with food AMOXICILLIN-POT CLAVULANATE 30045874033 No Longer Act nael Perez Mora MD Active CHERATUSSIN AC 100-10 MG/5ML ORAL SYRUP 1 tsp by mouth every 4 hours as needed for cough GUAIFENESIN-CODEINE 25557449631 No Longe r Active Hugo Restrepo MD Active ACETAMINOPHEN-CODEINE #3 300-30 MG ORAL TABLET 1 PO Q 4-6 HRS LA N PAIN ACETAMINOPHEN-CODEINE 76595388458 No Longer Active Hugo Restrepo MD Active LEVAQUIN 500 MG ORAL TABLET take one po QD LEVO FLOXACIN 97183161648 No Longer Active Griffin HERNANDEZ Active PREDNISONE 20 MG ORAL TABLET Take 3 tabs daily for 3 d ays, 2 tabs daily for 3 days, 1 tab daily for 3 days, 1/2 tab daily for 3 days 11/07 PREDNISONE 14032432113 No Longer Active Carlton Hu MD Acti ve AVELOX 400 MG ORAL TABLET 1 tab by mouth daily MOXIFLOXACIN HCL 89183310324 No Longer Active Carlton Hu MD Active CHERATUSSIN AC 100-10 MG/5ML ORAL SYRUP 1 tsp by mouth every 4 hours as needed for cough GUAIFENESIN-CODEINE 03964625512 No Longe r Active Hugo Restrepo MD Active AVELOX 400 MG ORAL TABLET 1 tab by mouth daily MOXIFLOXACIN HCL 42099422956 No Longer Active Marcy De La Rosa MD PhD Active TERBINAFINE HCL 250 MG ORAL TABLET 1 qDay T ERBINAFINE HCL 50262049410 No Longer Active Marcy De La Rosa MD PhD Active CHERATUSSIN AC 100-10 MG/5ML ORAL SYRUP 1 tsp by mouth every 4 hours as needed for cough GUAIFENESIN-CODEINE 85896352438 No Longe r Active Marcy De La Rosa MD PhD Active AVELOX 400 MG ORAL TABLET 1 tab by mouth daily MOXIFLOXACIN HCL 37402918077 No Longer Active Marcy De La Rosa MD PhD Active HYDROCODONE-ACETAMINOPHEN 5-325 MG ORAL TABLET 1 po q 6hr PRN co ugh HYDROCODONE-ACETAMINOPHEN 84946742706 No Longer Active Marcy De La Rosa MD PhD Active PREDNISONE 20 MG ORAL TABLET 2 tabs daily for 3 days, 1 tab daily for 3 days, 1/2 tab daily for 2 days PREDNISONE 80438215131 No Longer Active Carlton Hu MD Active CEFDINIR 300 MG ORAL CAPSULE by mouth twice a day 2011 CEFDINIR 38326156093 No Longer Active Carlton Hu MD Acti ve HYDROCHLOROTHIAZIDE 25 MG ORAL TABLET 1 TAB PO DAILY HYDROCHLOROTHIAZIDE 58955101441 Active ALFREDO Holly tive ACETAMINOPHEN-CODEINE #3 300-30 MG ORAL TABLET 1 tablet po q 4-6 hrs prn pain ACETAMINOPHEN-CODEINE 73914157468 No Longer Active Ridge Bess DO Active ZITHROMAX 250 MG ORAL TABLET 2 po today, then 1 po q days 2-5 20 03/07/07 AZITHROMYCIN 03393157005 No Longer Active Carlton Hu MD Active CHERATUSSIN AC 100-10 MG/5ML ORAL SYRUP take 1 tsp po q4-6 h ours prn cough GUAIFENESIN-CODEINE 32936352288 No Longer Active Jayden Hu MD Active ACETAMINOPHEN-CODEINE #3 300-30 MG ORAL TABLET 1 PO Q 4-6 HR PRN PAIN ACETAMINOPHEN-CODEINE 27964551940 No Longer Active Arnol Hu MD Active LORTAB 7.5-500 MG/15ML ORAL ELIXIR 7.5 ml po q 4 hour prn cough HYDROCODONE-ACETAMINOPHEN 07340880706 No Longer Active Carlton Hu MD Active PREDNISONE 20 MG ORAL TABLET 1 po bid 3 days, then 1 po q day 3 days PREDNISONE 50250014761 No Longer Active Carlton Hu MD Active CEFDINIR 300 MG ORAL CAPSULE by mouth twice a day 2011 CEFDINIR 63506315413 No Longer Active Carlton Hu MD Acti ve CEFDINIR 300 MG ORAL CAPSULE by mouth twice a day 2010 CEFDINIR 95993558806 No Longer Active Carlton Hu MD Acti ve CEFDINIR 300 MG ORAL CAPSULE by mouth twice a day 2010 CEFDINIR 98108011991 No Longer Active Carlton Hu MD Acti ve TESSALON PERLES 100 MG ORAL CAPSULE 1 tablet by mouth 3 times daily as needed for cough BENZONATATE 06077417160 No Longer Active Carlton Hu MD Active CEFDINIR 300 MG ORAL CAPSULE by mouth twice a day 2010 CEFDINIR 92480451930 No Longer Active Carlton Hu MD Acti ve ZITHROMAX Z-REYNA 250 MG ORAL TABLET 2 today, then 1 daily for 4 d ays AZITHROMYCIN 79334225749 No Longer Active Hugo Restrepo MD Active TESSALON PERLES 100 MG ORAL CAPSULE 1 tablet by mouth 3 times daily as needed for cough TESSALON PERLES 100 MG ORAL CAPSULE 52575 7 BENZONATATE Inactive PREDNISONE 20 MG ORAL TABLET 1 po bid 3 days, then 1 po q day 3 days PREDNISONE 20 MG ORAL TABLET 941682 PREDNISONE [place] ctive LORTAB 7.5-500 MG/15ML ORAL [...] cough CHERATUSSIN AC 100-10 MG/5ML ORAL SYRUP 802428 GUAIFENESIN-CODEINE Inactive ACETAMINOPHEN-CODEINE #3 300-30 MG ORAL TABLET 1 tablet po q 4-6 hrs prn pain ACETAMINOPHEN-CODEINE #3 300-30 MG ORAL TABLET ACETAMINOPHEN-CODEINE Inactive HYDROCODONE-ACETAMINOPHEN 5-325 MG ORAL TABLET 1 po q 6hr PRN co ugh HYDROCODONE-ACETAMINOPHEN 5-325 MG ORAL TABLET 434646 HYDROCODONE-ACETAMINOPHEN Inactive AVELOX 400 MG ORAL TABLET 1 tab by mouth daily AVELOX 400 MG ORAL TABLET 734839 MOXIFLOXACIN HCL Inactive CHERATUSSIN AC 100-10 MG/5ML ORAL SYRUP 1 tsp by mouth every 4 hours as needed for cough CHERATUSSIN AC 100-10 MG/5ML ORAL SYRUP 9 57647 GUAIFENESIN-CODEINE Inactive TERBINAFINE HCL 250 MG ORAL TABLET 1 qDay 07/08 TERBINAFINE HCL 250 MG ORAL TABLET 500738 TERBINAFINE HCL Inactive CHERATUSSIN AC 100-10 MG/5ML ORAL SYRUP 1 tsp by mouth every 4 hours as needed for cough CHERATUSSIN AC 100-10 MG/5ML ORAL SYRUP 9 15845 GUAIFENESIN-CODEINE Inactive ACETAMINOPHEN-CODEINE #3 300-30 MG ORAL TABLET 1 PO Q 4-6 HRS LA N PAIN ACETAMINOPHEN-CODEINE #3 300-30 MG ORAL TABLET ACETAMINOPHEN-CODEINE Inactive CHERATUSSIN AC 100-10 MG/5ML ORAL SYRUP 1 tsp by mouth every 4 hours as needed for cough CHERATUSSIN AC 100-10 MG/5ML ORAL SYRUP 9 69381 GUAIFENESIN-CODEINE Inactive AUGMENTIN 875-125 MG ORAL TABLET 1 tab by mouth twice daily with food AUGMENTIN 875-125 MG ORAL TABLET 247933 AMOXICIL MADELINE-POT CLAVULANATE Inactive CHERATUSSIN AC 100-10 MG/5ML ORAL SYRUP take one tsp po Q 6h ours prn cough CHERATUSSIN AC 100-10 MG/5ML ORAL SYRUP 660254 GUAIFENESIN-CODEINE Inactive PROPRANOLOL HCL 60 MG ORAL TABLET 1 PO Q D PROPRANOLOL HCL 60 MG ORAL TABLET 765596 PROPRANOLOL HCL Inactive TOPAMAX 50 MG ORAL TABLET take 1 tab po BID for migraines. 07/02 TOPAMAX 50 MG ORAL TABLET 533834 TOPIRAMATE Inacti ve TOPAMAX 25 MG ORAL TABLET 1 qHS x 1 week, then 1 BID x 1 week, then 1 qAM and 2 qHS x 1 week, then 2 BID (migraine prevention) TOPAMAX 25 MG ORAL TABLET 985186 TOPIRAMATE Inactive LYRICA 75 MG ORAL CAPSULE TAKE 1 CAPSULE BY MOUTH TWICE DAILY LYRICA 75 MG ORAL CAPSULE PREGABALIN Inactive SYMBICORT 160-4.5 MCG/ACT INHALATION AEROSOL 2 puffs bid wit h rinse after SYMBICORT 160-4.5 MCG/ACT INHALATION AEROSOL BUDESONIDE- FORMOTEROL FUMARATE Inactive PROMETHAZINE-CODEINE 6.25-10 MG/5ML ORAL SYRUP 1 tsp b y mouth every 8 hours prn cough PROMETHAZINE-CODEINE 6.25-10 MG/ 5ML ORAL SYRUP 815213 PROMETHAZINE-CODEINE Inactive CYMBALTA 30 MG ORAL CAPSULE DELAYED RELEASE PARTICLES 1 cap by mouth daily CYMBALTA 30 MG ORAL CAPSULE DELAYED RELE ASE PARTICLES 185913 DULOXETINE HCL Inactive PREMARIN 0.625 MG ORAL TABLET TAKE 1 TAB BY MOUTH DAILY PREMARIN 0.625 MG ORAL TABLET ESTROGENS CONJUGATED Inactive CHERATUSSIN AC 100-10 MG/5ML ORAL SYRUP 1 tsp by mouth every 4 hours as needed for cough CHERATUSSIN AC 100-10 MG/5ML ORAL SYRUP 9 65503 GUAIFENESIN-CODEINE Inactive PROMETHAZINE-CODEINE 6.25-10 MG/5ML ORAL SYRUP 1 tsp b y mouth every 6 hours if needed for cough PROMETHAZINE-CODEINE 6.25-10 MG/5ML ORAL SYRUP 225810 PROMETHAZINE-CODEINE Inactive CHERATUSSIN AC 100-10 MG/5ML ORAL SYRUP 1 tsp by mouth every 4 hours as needed for cough CHERATUSSIN AC 100-10 MG/5ML ORAL SYRUP 9 93592 GUAIFENESIN-CODEINE Inactive FLUTICASONE PROPIONATE 50 MCG/ACT NASAL SUSPENSION 1 t o 2 sprays each nostril daily FLUTICASONE PROPIONATE 50 MCG/AC T NASAL SUSPENSION 9807641 FLUTICASONE PROPIONATE Inactive PREDNISONE 20 MG ORAL TABLET 3 tab PO qd x 2d, 2 tab P O qd x 2d, 1 tab PO qd x 2d, 1/2 tab PO qd x 2d PREDNISONE 20 MG ORAL TAB LET 780523 PREDNISONE Inactive LEVOFLOXACIN 500 MG ORAL TABLET 1 tab PO daily x 10 days LEVOFLOXACIN 500 MG ORAL TABLET 198216 LEVOFLOXACIN Inactive CYCLOBENZAPRINE HCL 10 MG ORAL TABLET 1 tablet by mouth BID prn had pain CYCLOBENZAPRINE HCL 10 MG ORAL TABLET 044160 CYCLOBENZAPRINE HCL Inactive ZOCOR 40 MG ORAL TABLET 1 tab by mouth daily 4 ZOCOR 40 MG ORAL TABLET 714337 SIMVASTATIN Inactive TUSSIONEX PENNKINETIC ER 10-8 MG/5ML [...] FLUTICASONE PROPIO EFE 50 MCG/ACT NASAL SUSPENSION 2379264 FLUTICASONE PROPIONATE Inactive TUSSIONEX PENNKINETIC ER 10-8 [...] three days PREDNISONE 20 MG ORAL TABLET 252907 PREDNIS ONE Inactive ZITHROMAX Z-REYNA 250 MG ORAL TABLET 2 today, then 1 daily for 4 d ays ZITHROMAX Z-REYNA 250 MG ORAL TABLET 270816 AZITHROMYCIN Inactive CEFDINIR 300 MG ORAL CAPSULE [...] 20 03/07/07 ZITHROMAX 250 MG ORAL TABLET 993700 AZITHROMYCIN [place] ctive CEFDINIR 300 MG ORAL CAPSULE by mouth twice a day 2011 CEFDINIR 300 MG ORAL CAPSULE 110661 CEFDINIR Inactive PREDNISONE 20 MG ORAL TABLET 2 tabs daily for 3 days, 1 tab daily for 3 days, 1/2 tab daily for 2 days PREDNISONE 20 MG ORAL T ABLET 663933 PREDNISONE Inactive AVELOX 400 MG ORAL TABLET 1 tab by mouth daily AVELOX 400 MG ORAL TABLET 504922 MOXIFLOXACIN HCL Inactive AVELOX 400 MG ORAL TABLET 1 tab by mouth daily AVELOX 400 MG ORAL TABLET 910773 MOXIFLOXACIN HCL Inactive PREDNISONE 20 MG ORAL TABLET Take 3 tabs daily for 3 d ays, 2 tabs daily for 3 days, 1 tab daily for 3 days, 1/2 tab daily for 3 days 11/07 PREDNISONE 20 MG ORAL TABLET 460451 PREDNISONE Inactive LEVAQUIN 500 MG ORAL TABLET take one po QD LEVAQUIN 500 MG ORAL TABLET 697429 LEVOFLOXACIN Inactive AZITHROMYCIN 250 MG ORAL TABLET 2 po qd x 1 day, then 1 po q d x 4 days AZITHROMYCIN 250 MG ORAL TABLET 008834 AZITHROMY GIOVANNI Inactive MEDROL 4 MG ORAL TABLET THERAPY PACK 6 tabs on day 1, 5 tabs on day 2, 4 tabs on day 3, 3 tabs on day 4, 2 tabs on day 5, 1 tab on day 6 2013 MEDROL 4 MG ORAL TABLET THERAPY PACK 723521 METHYLPREDNISOLONE [place] ctive CHERATUSSIN AC 100-10 MG/5ML ORAL SYRUP 5ml po q6hr PRN Cough 20 13/04/14 CHERATUSSIN AC 100-10 MG/5ML ORAL SYRUP 339762 GUAIFENE SIN-CODEINE Inactive TRIAMCINOLONE ACETONIDE 0.1 % EXTERNAL CREAM apply three roger es daily prn rash TRIAMCINOLONE ACETONIDE 0.1 % EXTERNAL CREAM 101 4314 TRIAMCINOLONE ACETONIDE Inactive AZITHROMYCIN 250 MG ORAL TABLET 2 po qd x 1 day, then 1 po q d x 4 days AZITHROMYCIN 250 MG ORAL TABLET 048090 AZITHROMY GIOVANNI Inactive MEDROL 4 MG ORAL TABLET THERAPY PACK 6 pills x 1 day, then 5 pills x 1 day then 4 pills x 1 day, then 3 pills x 1 day, then 2 pills x 1 day, then 1 pill x 1 day, then stop MEDROL 4 MG ORAL TABLET THERAPY PACK 801046 METHYLPREDNISOLONE Inactive AMOXICILLIN 500 MG ORAL CAPSULE 1 tab by mouth 3 times daily x 10 days AMOXICILLIN 500 MG ORAL CAPSULE 870734 AMOXICILL IN Inactive AMOXICILLIN 500 MG ORAL CAPSULE 1 tab by mouth 3 times daily x 10 days AMOXICILLIN 500 MG ORAL CAPSULE 705501 AMOXICILL IN Inactive ZITHROMAX 250 MG ORAL TABLET 2 po today, then 1 po q days 2-5 20 12/08/14 ZITHROMAX 250 MG ORAL TABLET 372941 AZITHROMYCIN [place] ctive AUGMENTIN 875-125 MG ORAL TABLET 1 po BID x 10 days 20 13/01/20 AUGMENTIN 875-125 MG ORAL TABLET 495660 AMOXICILLIN-POT CLAVULANATE Inactive ZITHROMAX Z-REYNA 250 MG ORAL TABLET 2 today, then 1 daily for 4 d ays ZITHROMAX Z-REYNA 250 MG ORAL TABLET 124713 AZITHROMYCIN Inactive ZITHROMAX 250 MG ORAL TABLET 2 po today, then 1 po q days 2-5 20 14/03/21 ZITHROMAX 250 MG ORAL TABLET 029724 AZITHROMYCIN [place] ctive ZITHROMAX Z-REYNA 250 MG ORAL TABLET 2 today, then 1 daily for 4 d ays ZITHROMAX Z-REYNA 250 MG ORAL TABLET 112373 AZITHROMYCIN Inactive CEFDINIR 300 MG ORAL CAPSULE 1 po BID x 10 days 06/21 CEFDINIR 300 MG ORAL CAPSULE 515636 CEFDINIR Inactive ZITHROMAX 250 MG ORAL TABLET 2 po today, then 1 po q days 2-5 20 13/08/10 ZITHROMAX 250 MG ORAL TABLET 239935 AZITHROMYCIN [place] ctive LEVAQUIN 500 MG ORAL TABLET 1 tablet by mouth daily 13/09/24 LEVAQUIN 500 MG ORAL TABLET 196583 LEVOFLOXACIN Inactive SINGULAIR 10 MG ORAL TABLET 1 po qday for allergies 20 14/01/12 SINGULAIR 10 MG ORAL TABLET 125365 MONTELUKAST SODIUM Inactive AMOXICILLIN 500 MG ORAL CAPSULE 2 po BID x 10 days 201 09/29/08 AMOXICILLIN 500 MG ORAL CAPSULE 943289 AMOXICILLIN Inactive PREDNISONE 20 MG ORAL TABLET 2 tabs daily for 3 days, 1 tab daily for 3 days, 1/2 tab daily for 2 days PREDNISONE 20 MG ORAL T ABLET 206431 PREDNISONE Inactive ZITHROMAX Z-REYNA 250 MG ORAL TABLET 2 today, then 1 daily for 4 d ays ZITHROMAX Z-REYNA 250 MG ORAL TABLET 532286 AZITHROMYCIN Inactive PREDNISONE 20 MG ORAL TABLET 2 tabs daily for 3 days, 1 tab daily for 3 days, 1/2 tab daily for 2 days PREDNISONE 20 MG ORAL T ABLET 411745 PREDNISONE Inactive ZITHROMAX 250 MG ORAL TABLET 2 po today, then 1 po q days 2-5 20 14/09/04 ZITHROMAX 250 MG ORAL TABLET 003460 AZITHROMYCIN [place] ctive AMOXICILLIN 500 MG ORAL CAPSULE 1 cap by mouth three times a day AMOXICILLIN 500 MG ORAL CAPSULE 819082 AMOXICILLIN Inactive TERBINAFINE HCL 250 MG ORAL TABLET 1 qDay for nail fungus 7 TERBINAFINE HCL 250 MG ORAL TABLET 904563 TERBINAFINE HCL Inact nael AUGMENTIN 875-125 MG ORAL TABLET 1 po BID x 10 days 16/03/22 AUGMENTIN 875-125 MG ORAL TABLET 660231 AMOXICILLIN-POT CLAVULANATE Inactive Vital Signs Date Name [...] d blood pressure, diastolic 78 mm[Hg] BP srinivaasn blood pressure, systolic 116 mm[Hg] BP sys pulse rate E&M 108 /min Heart rate temperature E&M 98.1 [degF] Body temp erature weight E&M 150 [lb_av] Weight Measure d Diagnostic Results Date Name Value Unit Range Description Lab Report: Basic Metabolic Panel - Chem istry sodium, serum 132 mmol/L [phone]/07/12 potassium, serum 2.7 mmol/L 3.5-5.2 chloride, serum 93 mmol/L 98-107 carbon dioxide, venous blood 30.8 mmol/L 21.0-32 .0 blood glucose 107 mg/dL 65-110 calcium, serum 9.3 mg/dL 8.5-10.1 urea nitrogen, blood 12 mg/dL 7-18 creatinine, serum 1.00 mg/dL 0.60-1.30 sodium, serum 142 mmol/L 636-454 0164/07/17 potassium, serum 4.2 mmol/L 3.5-5.2 chloride, serum 106 mmol/L 98-107 carbon dioxide, venous blood 29.9 mmol/L 21.0-32 .0 blood glucose 108 mg/dL 65-110 calcium, serum 9.1 mg/dL 8.5-10.1 urea nitrogen, blood 11 mg/dL 7-18 creatinine, serum 0.81 mg/dL 0.60-1.30 Lab Report: Rapid Strep - Lab Microbial identification kit, rapid strep method Negative Negative Encounters Code Encounter Date Provider Facility CPT-75920 Level 4 Est. Patient 09:51:32 THREAD TWISTER Carlton rich MD [facility] CPT-89007 Level 3 Est. Patient 10:26:00 THREAD TWISTER Italo CREAM DIPPER [facility] CPT-96621 Level 3 Est. Patient 13:35:41 THREAD TWISTER Carlton rich MD [facility] CPT-08877 Level 3 Est. Patient 10:03:52 THREAD TWISTER Carlton rich MD [facility] CPT-63619 Level 3 Est. Patient 12:17:50 CDT Hugo Restrepo MD [facility] CPT-22049 Level 3 Est. Patient 13:42:38 CDT Italo [facility] CPT-30486 Level 3 Est. Patient 13:23:51 CDT [facility] CPT-67602 Level 3 Est. Patient 14:22:19 THREAD TWISTER Diya cobian [facility] CPT-36548 Level 3 Est. Patient 10:11:46 CDT Carlton rich MD [facility] CPT-85464 Level 3 Est. Patient 17:29:43 CDT Italo [facility] CPT-73404 Level 3 Est. Patient 11:58:06 CDT Italo [facility] CPT-34443 Level 4 Est. Patient 14:36:51 CDT Carlton rich MD [facility] CPT-09525 Level 3 Est. Patient 18:16:00 THREAD TWISTER Blaine HERNANDEZ [facility] CPT-81512 Level 3 Est. Patient 09:45:49 THREAD TWISTER Carlton rich MD [facility] CPT-75014 Level 3 Est. Patient 13:19:20 CDT Carlton rich MD [facility] CPT-08385 Level 3 Est. Patient 13:06:43 CDT Ridge tam DO [facility] CPT-13379 Level 3 Est. Patient 10:03:07 CDT Perez Mora MD [facility]-37090 Level 3 Est. Patient 19:50:35 THREAD TWISTER Carlton rich MD [facility]-48213 Level 4 Est. Patient 18:05:01 THREAD TWISTER Carlton rich MD [facility]-21401 Level 3 Est. Patient 10:45:55 THREAD TWISTER Hugo Restrepo MD [facility]-56060 Level 3 Est. Patient 14:12:49 CDT Griffin HERNANDEZ [facility]-56374 Level 3 Est. Patient 17:37:24 CDT Carlton rich MD [facility]-11494 Level 3 Est. Patient 16:51:54 CDT Carlton rich MD [facility]-84899 Level 3 Est. Patient 12:18:11 CDT Hugo Restrepo MD [facility]-75445 Level 3 Est. Patient 11:30:25 CDT Marcy crisostomo MD, PhD [facility]-33226 Level 3 Est. Patient 12:00:47 THREAD TWISTER Carlton rich MD [facility]-78255 Level 3 Est. Patient 16:31:06 THREAD TWISTER Carlton rich MD [facility]-46894 Level 3 Est. Patient 16:23:24 THREAD TWISTER Ridge tam [facility]-26380 Level 3 Est. Patient 12:34:12 CDT Carlton rich MD [facility]-94759 Level 2 Est. Patient 15:43:33 CDT Robi armstrong MD [facility] CPT-19945 Level 4 Est. Patient 14:04:44 CDT Carlton rich MD [facility] CPT-34902 Level 3 Est. Patient 05:47:59 CDT Ridge tam DO [facility] CPT-82741 Level 3 Est. Patient 13:12:53 THREAD TWISTER Carlton rich MD [facility] CPT-10191 Level 3 Est. Patient 14:26:53 CDT Hugo [...] CPT-J1100 Decadron 6mg (Dexamethasone) 14:32:13 CDT 2 CPT-99318 Hip bilat min 2V w AP pelvis 13:16:20 CDT 2 CPT-34742 Pelvis only 13:07:33 CDT CPT-18069 Spec Collection and Handling Fee 11:25:12 C DT CPT-52953 Fluzone Quadrivalent Intramuscular Suspe nsion 0.5 ML 14:31:55 CDT CPT-19321 Abx/Therapy Injection 13:28:47 THREAD TWISTER CPT-J2930 Solu Medrol 125 mg (Methyl Prednisolone Sodium Succinate) 12:00:47 THREAD TWISTER CPT-63688 Venipuncture Draw Fee 11:33:31 CDT CPT-75770 EKG Trac and Interp 11:21:09 CDT CPT-31448 Chest 2V Frontal and Lat 11:21:09 CDT 12/15 CPT-93859 Venipuncture Draw Fee 08:02:34 CDT CPT-94455 Chest 2V Frontal and Lat 05:47:59 CDT 06/05
--- OUTSIDE RECORDS SUMMARY | 2019-10-08 09:40 | XMS REPORT | Clinical Summary ---
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 TECHNICIAN Unspecified sinusitis (chronic) Bronchitis-Acute 466.0 Active Carlton uH MD Acute bronchitis URI - acute 465.9 Active Elise Whitmore CATHETERIZATION LABORATORY TECHNICIAN Acute upper respiratory infections of unspecified site Pharyngitis acute 462 Active Elise Whitmore A PRN Acute pharyngitis Rhinitis, acute 460 Active Elise Whitmore APR N Acute nasopharyngitis [common cold] Sinusitis 473.9 Active Diya De Guzman CATHETERIZATION LABORATORY TECHNICIAN Unspecified sinusitis (chronic) Bronchitis 490 Active Diya De Guzman CATHETERIZATION LABORATORY TECHNICIAN Bronchitis, not specified as acute or [...] a d ay as needed ALBUTEROL SULFATE 59922491683 Active Jillina Frakerriel APR N Active MUCINEX DM MAXIMUM STRENGTH 60-1200 MG [id number] 1 tab po q am 2016 DEXTROMETHORPHAN-GUAIFENESIN [id number] Active Jillina Frazell CATHETERIZATION LABORATORY TECHNICIAN Active TUSSIONEX PENNKINETIC ER 10-8 MG/5ML LQCR 5ml po q12hr PRN Cough 20 14/06/21 HYDROCOD POLST-CHLORPHEN POLST 43845373492 Active Jillina Frakerriel CATHETERIZATION LABORATORY TECHNICIAN Active PREDNISONE 20 MG TAB 2 tabs daily for 3 days, 1 t ab daily for 3 days, 1/2 tab daily for 2 days PREDNISONE 40969125802 Active Jillina Cesarl CATHETERIZATION LABORATORY TECHNICIAN Active TUSSIONEX PENNKINETIC ER 10-8 MG/5ML ORAL LQCR 5 mL PO q 12 hrs PRN cough HYDROCOD POLST-CHLORPHEN POLST 74639836504 No Longer Active Jillina Frazell CATHETERIZATION LABORATORY TECHNICIAN Active FLUTICASONE PROPIONATE 50 MCG/ACT SUSP 2 sprays each n ostril daily until bottle is empty FLUTICASONE PROPIONATE 15251661947 No Longer Ac tive Jillina Daphnezell CATHETERIZATION LABORATORY TECHNICIAN Active ASMANEX 60 METERED DOSES 220 MCG/INH AEPB 1 puff bid with ri nse after MOMETASONE FUROATE 13796564506 No Longer Active Venullina Darlin meneses CATHETERIZATION LABORATORY TECHNICIAN Active ZITHROMAX Z-REYNA 250 MG TABS 2 today, then 1 daily for 4 days 201 09/29/14 AZITHROMYCIN 09414350589 No Longer Active Elise Whitmore APRN Active TUSSIONEX PENNKINETIC ER 10-8 MG/5ML LQCR 5ml po q12hr PRN Cough HYDROCOD POLST-CHLORPHEN POLST 61420830011 No Longer Active Elise Whitmore APRN Active MUCINEX D 60-600 MG [id number] 1 tab po q am PSEUDOEPHEDRINE-GUAIFENESIN 64000468168 Active Jillina Frazell CATHETERIZATION LABORATORY TECHNICIAN Active PREDNISONE 20 MG TAB 2 tabs daily for 3 days, 1 t ab daily for 3 days, 1/2 tab daily for 2 days PREDNISONE 55863887040 No Longer Active Jillina Frazell CATHETERIZATION LABORATORY TECHNICIAN Active AMOXICILLIN 500 MG CAPS 2 po BID x 10 days AMOX ICILLIN 49890749926 No Longer Active Jillina Frazell CATHETERIZATION LABORATORY TECHNICIAN Active SINGULAIR 10 MG TABS 1 po qday for allergies 2 MONTELUKAST SODIUM 04668366832 No Longer Active Carlton Hu MD Acti ve LEVAQUIN 500 MG TAB 1 tablet by mouth daily LEV OFLOXACIN 63587563097 No Longer Active Carlton Hu MD Active FLUTICASONE PROPIONATE 50 MCG/ACT SUSP 2 sprays each n ostril daily for 2 weeks, then 1 spray each nostril daily. FLUTICASONE PRO PIONATE 17635532947 Active Elise Whitmore APRN Active ZITHROMAX 250 MG TAB 2 po today, then 1 po q days 2-5 AZITHROMYCIN 79110285544 No Longer Active Elise Whitmore APRN Acti ve XANAX 0.5 MG TABS one tablet by mouth daily prn anxiety ALPRAZOLAM 47548612594 Active Elise Whitmore APRN Active CYMBALTA 30 MG CPEP 1 cap by mouth daily for depression DULOXETINE HCL 98824807496 Active Carlton Hu MD Active CEFDINIR 300 MG CAPS 1 po BID x 10 days CEFDINI R 76291315123 No Longer Active Carlton Hu MD Active ZOCOR 40 MG TAB 1 tab by mouth daily SIMVASTATI N 79656087455 No Longer Active Carlton Hu MD Active CYCLOBENZAPRINE HCL 10 MG TABS 1 tablet by mouth BID prn had cherelle n CYCLOBENZAPRINE HCL 80521010641 No Longer Active Carlton Hu MD Active LEVOFLOXACIN 500 MG ORAL TABS 1 tab PO daily x 10 days LEVOFLOXACIN 03670331462 No Longer Active Carlton uH MD Acti ve PREDNISONE 20 MG ORAL TABS 3 tab PO qd x 2d, 2 tab PO qd x 2d, 1 tab PO qd x 2d, 1/2 tab PO qd x 2d PREDNISONE 08764567865 No Longer Active Carlton Hu MD Active FLUTICASONE PROPIONATE 50 MCG/ACT SUSP 1 to 2 sprays each no stril daily FLUTICASONE PROPIONATE 81247629718 No Longer Active T jaz HERNANDEZ Active CHERATUSSIN AC 100-10 MG/5ML SYRP 1 tsp by mouth every 4 hours as needed for cough GUAIFENESIN-CODEINE 19065257049 No Longer Activ e Blaine HERNANDEZ Active PROMETHAZINE-CODEINE 6.25-10 MG/5ML SYRP 1 tsp by mout h every 6 hours if needed for cough PROMETHAZINE-CODEINE 72885498832 No Long er Active Blaine HERNANDEZ Active CHERATUSSIN AC 100-10 MG/5ML SYRP 1 tsp by mouth every 4 hours as needed for cough GUAIFENESIN-CODEINE 84994778692 No Longer Activ e Blaine HERNANDEZ Active ZITHROMAX Z-REYNA 250 MG TABS 2 today, then 1 daily for 4 days 201 08/30/03 AZITHROMYCIN 39959616020 No Longer Active Columba Parrish Act nael ZITHROMAX 250 MG TAB 2 po today, then 1 po q days 2-5 AZITHROMYCIN 37640534159 No Longer Active Carlton Hu MD Acti ve ZITHROMAX Z-REYNA 250 MG TABS 2 today, then 1 daily for 4 days 201 08/07/20 AZITHROMYCIN 18488755760 No Longer Active Columba Parrish Act nael AUGMENTIN 875-125 MG TAB 1 po BID x 10 days AMOXICILLIN- POT CLAVULANATE 36993462429 No Longer Active Diya De Guzman APRN Active ZITHROMAX 250 MG TAB 2 po today, then 1 po q days 2-5 AZITHROMYCIN 01315691418 No Longer Active Carlton Hu MD Acti ve TRAMADOL HCL 50 MG TABS 1 po tid with ES Tylenol TRAMADOL HCL 52421827897 Active Carlton Hu MD Active PREMARIN 0.625 MG TABS TAKE 1 TAB BY MOUTH DAILY 07/25 ESTROGENS CONJUGATED 48940825165 No Longer Active Ridge Bess DO Active CYMBALTA 30 MG CPEP 1 cap by mouth daily DULOXE SNEHA HCL 67766011159 No Longer Active Ridge Bess DO Active AMOXICILLIN 500 MG CAP 1 tab by mouth 3 times daily x 10 days 20 14/04/28 AMOXICILLIN 28410206541 No Longer Active Carlton Hu MD Active AMOXICILLIN 500 MG CAP 1 tab by mouth 3 times daily x 10 days 20 13/03/08 AMOXICILLIN 62858168740 No Longer Active Carlton Hu MD Active PROMETHAZINE-CODEINE 6.25-10 MG/5ML SYRP 1 tsp by mouth ever y 8 hours prn cough PROMETHAZINE-CODEINE 76775708744 No Longer Active Robert Hu MD Active MEDROL (REYNA) 4 MG TABS 6 pills x 1 day, then 5 pill s x 1 day then 4 pills x 1 day, then 3 pills x 1 day, then 2 pills x 1 day, then 1 pill x 1 day, then stop METHYLPREDNISOLONE 38384320147 No Longer Active Parris Mora MD Active AZITHROMYCIN 250 MG TABS 2 po qd x 1 day, then 1 po qd x 4 days AZITHROMYCIN 94698550344 No Longer Active Perez Mora MD Active SYMBICORT 160-4.5 MCG/ACT AERO 2 puffs bid with rinse after 2011 BUDESONIDE-FORMOTEROL FUMARATE 10357088182 No Longer Active Perez Mora MD Active LYRICA 75 MG CAPS TAKE 1 CAPSULE BY MOUTH TWICE DAILY 2013 PREGABALIN 13633647955 No Longer Active Carlton Hu MD Active LYRICA 100 MG CAPS Take 1 tab po BID for fibromyalgia PREGABALIN 09563657752 Active Carlton Hu MD Active TOPAMAX 25 MG TABS 1 qHS x 1 week, then 1 BID x 1 week, then 1 qAM and 2 qHS x 1 week, then 2 BID (migraine prevention) TOPIRAMAT E 12628883932 No Longer Active Jerica FUENTES Active TOPAMAX 50 MG TABS take 1 tab po BID for migraines. 12/07/10 TOPIRAMATE 86093065146 No Longer Active Jerica AGUILARA Ac tive TOPAMAX 100 MG TABS Take 1 tablet po bid TOPIRAMATE 4999 5186783 Active Elise Whitmore APRN Active TRIAMCINOLONE ACETONIDE 0.1 % CREA apply three times daily prn r beatrice TRIAMCINOLONE ACETONIDE 73799556476 No Longer Active Carlton Hu MD Active PAXIL 40 MG TAB take 1 tab po qday for depression PAROXETINE HCL 87234111285 Active Elise Whitmore APRN Active CHERATUSSIN AC 100-10 MG/5ML SYRP 5ml po q6hr PRN Cough GUAIFENESIN-CODEINE 83343831706 No Longer Active Carlton Hu MD Active MEDROL (REYNA) 4 MG TABS 6 tabs on day 1, 5 tabs on d ay 2, 4 tabs on day 3, 3 tabs on day 4, 2 tabs on day 5, 1 tab on day 6 METHYLPREDNISOLONE 45314718197 No Longer Active Perez Mora MD Active AZITHROMYCIN 250 MG TABS 2 po qd x 1 day, then 1 po qd x 4 days AZITHROMYCIN 05774371014 No Longer Active Perez Mora MD Active PROPRANOLOL HCL 60 MG TABS 1 PO Q D PROPRANOL OL HCL 24806458221 No Longer Active Perez Mora MD Active CHERATUSSIN AC 100-10 MG/5ML SYRP take one tsp po Q 6hours prn c ough GUAIFENESIN-CODEINE 18410203548 No Longer Active Perez Means Active AUGMENTIN 875-125 MG TAB 1 tab by mouth twice daily with food 20 12/03/31 AMOXICILLIN-POT CLAVULANATE 14075036502 No Longer Active Chanel Mora MD Active CHERATUSSIN AC 100-10 MG/5ML SYRP 1 tsp by mouth every 4 hours as needed for cough GUAIFENESIN-CODEINE 96657315463 No Longer Activ e Hugo Restrepo MD Active ACETAMINOPHEN-CODEINE #3 300-30 MG TABS 1 PO Q 4-6 HRS PRN PAIN ACETAMINOPHEN-CODEINE 27269303654 No Longer Active Hugo Restrepo MD Active LEVAQUIN 500 MG TABS take one po QD LEVOFLOXACI N 70184499254 No Longer Active Griffin HERNANDEZ Active PREDNISONE 20 MG TAB Take 3 tabs daily for 3 days , 2 tabs daily for 3 days, 1 tab daily for 3 days, 1/2 tab daily for 3 days P REDNISONE 95422271534 No Longer Active Carlton Hu MD Active AVELOX 400 MG TABS 1 tab by mouth daily MOXIFLO XACIN HCL 75942216230 No Longer Active Carlton Hu MD Active CHERATUSSIN AC 100-10 MG/5ML SYRP 1 tsp by mouth every 4 hours as needed for cough GUAIFENESIN-CODEINE 57805434449 No Longer Activ e Hugo Restrepo MD Active AVELOX 400 MG TABS 1 tab by mouth daily MOXIFLO XACIN HCL 03590704525 No Longer Active Marcy De La Rosa MD PhD Active TERBINAFINE HCL 250 MG TABS 1 qDay TERBINAF INE HCL 46994655468 No Longer Active Marcy De La Rosa MD PhD Active CHERATUSSIN AC 100-10 MG/5ML SYRP 1 tsp by mouth every 4 hours as needed for cough GUAIFENESIN-CODEINE 83232618050 No Longer Activ e Marcy De La Rosa MD PhD Active AVELOX 400 MG TABS 1 tab by mouth daily MOXIFLO XACIN HCL 88846989004 No Longer Active Marcy De La Rosa MD PhD Active HYDROCODONE-ACETAMINOPHEN 5-325 MG TABS 1 po q 6hr PRN cough 201 05/09/16 HYDROCODONE-ACETAMINOPHEN 55486732965 No Longer Active Marcy De La Rosa MD PhD Active PREDNISONE 20 MG TAB 2 tabs daily for 3 days, 1 t ab daily for 3 days, 1/2 tab daily for 2 days PREDNISONE 29760543153 No Longer Active Carlton Hu MD Active CEFDINIR 300 MG CAPS by mouth twice a day CEFDI ODILIA 18722083392 No Longer Active Carlton Hu MD Active HYDROCHLOROTHIAZIDE 25 MG TABS 1 TAB PO DAILY H YDROCHLOROTHIAZIDE 81751089430 Active Carlton Hu MD Active ACETAMINOPHEN-CODEINE #3 300-30 MG TABS 1 tablet po q 4-6hrs prn pain ACETAMINOPHEN-CODEINE 65761618459 No Longer Active Ridge Bess DO Active ZITHROMAX 250 MG TAB 2 po today, then 1 po q days 2-5 AZITHROMYCIN 68471543732 No Longer Active Carlton Hu MD Acti ve CHERATUSSIN AC 100-10 MG/5ML SYRP take 1 tsp po q4-6 hours prn c ough GUAIFENESIN-CODEINE 49535967341 No Longer Active Carlton Hu MD Active ACETAMINOPHEN-CODEINE #3 300-30 MG TABS 1 PO Q 4-6 HR PRN PAIN 2 ACETAMINOPHEN-CODEINE 79442065449 No Longer Active Carlton rich MD Active LORTAB 7.5-500 MG/15ML ELIX 7.5 ml po q 4 hour prn cough HYDROCODONE-ACETAMINOPHEN 26071990305 No Longer Active Carlton Hu MD Active PREDNISONE 20 MG TAB 1 po bid 3 days, then 1 po q day 3 days 201 05/03/07 PREDNISONE 61287649399 No Longer Active Carlton Hu MD Active ELMIRON 100 MG CAPS 2 tablets in the am and 1 tablet at hs PENTOSAN POLYSULFATE SODIUM 19206598299 Active Carlton Hu MD Ac tive CEFDINIR 300 MG CAPS by mouth twice a day CEFDI ODILIA 94694697451 No Longer Active Carlton Hu MD Active CEFDINIR 300 MG CAPS by mouth twice a day CEFDI ODILIA 95046762730 No Longer Active Carlton Hu MD Active CEFDINIR 300 MG CAPS by mouth twice a day CEFDI ODILIA 48362263124 No Longer Active Carlton Hu MD Active TESSALON PERLES 100 MG CAP 1 tablet by mouth 3 times daily a s needed for cough BENZONATATE 32461276972 No Longer Active Carlton bustamante MD Active CEFDINIR 300 MG CAPS by mouth twice a day CEFDI ODILIA 28057413367 No Longer Active Carlton Hu MD Active ZITHROMAX Z-REYNA 250 MG TABS 2 today, then 1 daily for 4 days 201 04/09/17 AZITHROMYCIN 03330393871 No Longer Active Hugo Restrepo MD Active TESSALON PERLES 100 MG CAP 1 tablet by mouth 3 times daily a s needed for cough TESSALON PERLES 100 MG CAP 628961 BENZONATATE I nactive PREDNISONE 20 MG TAB 1 po bid 3 days, then 1 po q day 3 days 201 05/03/07 PREDNISONE 20 MG TAB 913581 PREDNISONE Inactive LORTAB 7.5-500 MG/15ML ELIX 7.5 ml po q 4 hour prn cough LORTAB 7.5-500 MG/15ML ELIX HYDROCODONE-ACETAMINOPHEN Inacti ve ACETAMINOPHEN-CODEINE #3 300-30 MG TABS 1 PO Q 4-6 HR PRN PAIN 2 ACETAMINOPHEN-CODEINE #3 300-30 MG TABS 399274 ACETAMIN OPHEN-CODEINE Inactive CHERATUSSIN AC 100-10 MG/5ML SYRP take 1 tsp po q4-6 hours prn c ough CHERATUSSIN AC 100-10 MG/5ML SYRP 723895 GUAIFENESIN-CO DEINE Inactive ACETAMINOPHEN-CODEINE #3 300-30 MG TABS 1 tablet po q 4-6hrs prn pain ACETAMINOPHEN-CODEINE #3 300-30 MG TABS 327649 ACETAMIN OPHEN-CODEINE Inactive HYDROCODONE-ACETAMINOPHEN 5-325 MG TABS 1 po q 6hr PRN cough 201 05/09/16 HYDROCODONE-ACETAMINOPHEN 5-325 MG TABS 445283 HYDROCODONE-ACETAMINOPHEN Inactive AVELOX 400 MG TABS 1 tab by mouth daily A VELOX 400 MG TABS 561350 MOXIFLOXACIN HCL Inactive CHERATUSSIN AC 100-10 MG/5ML SYRP 1 tsp by mouth every 4 hours as needed for cough CHERATUSSIN AC 100-10 MG/5ML SYRP 157778 GUAIFENESIN-CODEINE Inactive TERBINAFINE HCL 250 MG TABS 1 qDay TERBINAFINE HCL 250 MG TABS 443932 TERBINAFINE HCL Inactive CHERATUSSIN AC 100-10 MG/5ML SYRP 1 tsp by mouth every 4 hours as needed for cough CHERATUSSIN AC 100-10 MG/5ML SYRP 228721 GUAIFENESIN-CODEINE Inactive ACETAMINOPHEN-CODEINE #3 300-30 MG TABS 1 PO Q 4-6 HRS PRN PAIN ACETAMINOPHEN-CODEINE #3 300-30 MG TABS 159260 ACETAMINOPHEN-CODEIN E Inactive CHERATUSSIN AC 100-10 MG/5ML SYRP 1 tsp by mouth every 4 hours as needed for cough CHERATUSSIN AC 100-10 MG/5ML SYRP 945373 GUAIFENESIN-CODEINE Inactive AUGMENTIN 875-125 MG TAB 1 tab by mouth twice daily with food 20 12/03/31 AUGMENTIN 875-125 MG TAB 837903 AMOXICILLIN-POT CLAVULA EFE Inactive CHERATUSSIN AC 100-10 MG/5ML SYRP take one tsp po Q 6hours prn c ough CHERATUSSIN AC 100-10 MG/5ML SYRP 841725 GUAIFENESIN-CO DEINE Inactive PROPRANOLOL HCL 60 MG TABS 1 PO Q D P ROPRANOLOL HCL 60 MG TABS 854714 PROPRANOLOL HCL Inactive TOPAMAX 50 MG TABS take 1 tab po BID for migraines. 12/07/10 TOPAMAX 50 MG TABS 162534 TOPIRAMATE Inactive TOPAMAX 25 MG TABS 1 qHS x 1 week, then 1 BID x 1 week, then 1 qAM and 2 qHS x 1 week, then 2 BID (migraine prevention) TOPAMAX 2 5 MG TABS 915622 TOPIRAMATE Inactive LYRICA 75 MG CAPS TAKE 1 CAPSULE BY MOUTH TWICE DAILY LYRICA 75 MG CAPS PREGABALIN Inactive SYMBICORT 160-4.5 MCG/ACT AERO 2 puffs bid with rinse after 2011 SYMBICORT 160-4.5 MCG/ACT AERO BUDESONIDE-FORMOT SÁNCHEZ FUMARATE Inactive PROMETHAZINE-CODEINE 6.25-10 MG/5ML SYRP 1 tsp by mouth ever y 8 hours prn cough PROMETHAZINE-CODEINE 6.25-10 MG/5ML SYRP 096556 PROMETHAZINE-CODEINE Inactive CYMBALTA 30 MG CPEP 1 cap by mouth daily CYMBALTA 30 MG CPEP 506993 DULOXETINE HCL Inactive PREMARIN 0.625 MG TABS TAKE 1 TAB BY MOUTH DAILY 07/25 PREMARIN 0.625 MG TABS ESTROGENS CONJUGATED Inactive CHERATUSSIN AC 100-10 MG/5ML SYRP 1 tsp by mouth every 4 hours as needed for cough CHERATUSSIN AC 100-10 MG/5ML SYRP 096090 GUAIFENESIN-CODEINE Inactive PROMETHAZINE-CODEINE 6.25-10 MG/5ML SYRP 1 tsp by mout h every 6 hours if needed for cough PROMETHAZINE-CODEINE 6.25-10 MG/5ML SYRP 773825 PROMETHAZINE-CODEINE Inactive CHERATUSSIN AC 100-10 MG/5ML SYRP 1 tsp by mouth every 4 hours as needed for cough CHERATUSSIN AC 100-10 MG/5ML SYRP 294918 GUAIFENESIN-CODEINE Inactive FLUTICASONE PROPIONATE 50 MCG/ACT SUSP 1 to 2 sprays each no stril daily FLUTICASONE PROPIONATE 50 MCG/ACT SUSP 6804171 FLUTICASONE PROPIONATE Inactive PREDNISONE 20 MG ORAL TABS 3 tab PO qd x 2d, 2 tab PO qd x 2d, 1 tab PO qd x 2d, 1/2 tab PO qd x 2d PREDNISONE 20 MG ORAL TABS 374100 PREDNISONE Inactive LEVOFLOXACIN 500 MG ORAL TABS 1 tab PO daily x 10 days LEVOFLOXACIN 500 MG ORAL TABS 336626 LEVOFLOXACIN Inactive CYCLOBENZAPRINE HCL 10 MG TABS 1 tablet by mouth BID prn had cherelle n CYCLOBENZAPRINE HCL 10 MG TABS 172587 CYCLOBENZAPRINE H CL Inactive ZOCOR 40 MG TAB 1 tab by mouth daily ZOCOR 40 M G TAB 104954 SIMVASTATIN Inactive TUSSIONEX PENNKINETIC ER 10-8 MG/5ML [...] empty FLUTICASONE PROPIONATE 50 MCG/ACT SUSP 17 86063 FLUTICASONE PROPIONATE Inactive TUSSIONEX PENNKINETIC ER 10-8 MG/5ML ORAL LQCR 5 mL PO q 12 hrs PRN cough TUSSIONEX PENNKINETIC ER 10-8 MG/5ML ORAL LQCR HYDROCOD POLST-CHLORPHEN POLST Inactive ZITHROMAX Z-REYNA 250 MG TABS 2 today, then 1 daily for 4 days 201 04/09/17 ZITHROMAX Z-REYNA 250 MG TABS 3515585 AZITHROMYCIN Inac tive CEFDINIR 300 MG CAPS [...] q days 2-5 ZITHROMAX 250 MG TAB 1864512 AZITHROMYCIN Inactive CEFDINIR 300 MG CAPS by mouth twice a day CEFDINIR 300 MG CAPS 20020704 CEFDINIR Inactive PREDNISONE 20 MG TAB 2 tabs daily for 3 days, 1 t ab daily for 3 days, 1/2 tab daily for 2 days PREDNISONE 20 MG TAB 050237 PREDNISON E Inactive AVELOX 400 MG TABS 1 tab by mouth daily A VELOX 400 MG TABS 650444 MOXIFLOXACIN HCL Inactive AVELOX 400 MG TABS 1 tab by mouth daily A VELOX 400 MG TABS 056535 MOXIFLOXACIN HCL Inactive PREDNISONE 20 MG TAB Take 3 tabs daily for 3 days , 2 tabs daily for 3 days, 1 tab daily for 3 days, 1/2 tab daily for 3 days PREDNISONE 20 MG TAB 861285 PREDNISONE Inactive LEVAQUIN 500 MG TABS take one po QD LEVAQUIN 50 0 MG TABS 971858 LEVOFLOXACIN Inactive AZITHROMYCIN 250 MG TABS 2 po qd x 1 day, then 1 po qd x 4 days AZITHROMYCIN 250 MG TABS 9635745 AZITHROMYCIN Inactiv e MEDROL (REYNA) 4 MG TABS 6 tabs on day 1, 5 tabs on d ay 2, 4 tabs on day 3, 3 tabs on day 4, 2 tabs on day 5, 1 tab on day 6 MEDROL (REYNA) 4 MG TABS 808168 METHYLPREDNISOLONE Inactive CHERATUSSIN AC 100-10 MG/5ML SYRP 5ml po q6hr PRN Cough CHERATUSSIN AC 100-10 MG/5ML SYRP 707208 GUAIFENESIN-CODEINE Inacti ve TRIAMCINOLONE ACETONIDE 0.1 % CREA apply three times daily prn r beatrice TRIAMCINOLONE ACETONIDE 0.1 % CREA 8313682 TRIAMCINOLONE ACETONIDE Inactive AZITHROMYCIN 250 MG TABS 2 po qd x 1 day, then 1 po qd x 4 days AZITHROMYCIN 250 MG TABS 7566233 AZITHROMYCIN Inactiv e MEDROL (REYNA) 4 MG TABS 6 pills x 1 day, then 5 pill s x 1 day then 4 pills x 1 day, then 3 pills x 1 day, then 2 pills x 1 day, then 1 pill x 1 day, then stop MEDROL (REYNA) 4 MG TABS 981689 METHYLPREDNISOLONE Inactive AMOXICILLIN 500 MG CAP 1 tab by mouth 3 times daily x 10 days 20 13/03/08 AMOXICILLIN 500 MG CAP 343398 AMOXICILLIN Inactive AMOXICILLIN 500 MG CAP 1 tab by mouth 3 times daily x 10 days 20 14/04/28 AMOXICILLIN 500 MG CAP 359585 AMOXICILLIN Inactive ZITHROMAX 250 MG TAB 2 po today, then 1 po q days 2-5 ZITHROMAX 250 MG TAB 5007634 AZITHROMYCIN Inactive AUGMENTIN 875-125 MG TAB 1 po BID x 10 days AUGMENTIN 875- 125 MG TAB 439237 AMOXICILLIN-POT CLAVULANATE Inactive ZITHROMAX Z-REYNA 250 MG TABS 2 today, then 1 daily for 4 days 201 08/07/20 ZITHROMAX Z-REYNA 250 MG TABS 2196302 AZITHROMYCIN Inac tive ZITHROMAX 250 MG TAB 2 po today, then 1 po q days 2-5 ZITHROMAX 250 MG TAB 0389887 AZITHROMYCIN Inactive ZITHROMAX Z-REYNA 250 MG TABS 2 today, then 1 daily for 4 days 201 08/30/03 ZITHROMAX Z-REYNA 250 MG TABS 0361594 AZITHROMYCIN Inac tive CEFDINIR 300 MG CAPS 1 po BID x 10 days C EFDINIR 300 MG CAPS 878209 CEFDINIR Inactive ZITHROMAX 250 MG TAB 2 po today, then 1 po q days 2-5 ZITHROMAX 250 MG TAB 7650017 AZITHROMYCIN Inactive LEVAQUIN 500 MG TAB 1 tablet by mouth daily LEVAQUIN 500 MG TAB 550554 LEVOFLOXACIN Inactive SINGULAIR 10 MG TABS 1 po qday for allergies 2 SINGULAIR 10 MG TABS 809276 MONTELUKAST SODIUM Inactive AMOXICILLIN 500 MG CAPS 2 po BID x 10 days AMOXICILLIN 500 MG CAPS 230728 AMOXICILLIN Inactive PREDNISONE 20 MG TAB 2 tabs daily for 3 days, 1 t ab daily for 3 days, 1/2 tab daily for 2 days PREDNISONE 20 MG TAB 811740 PREDNISON E Inactive ZITHROMAX Z-REYNA 250 MG TABS 2 today, then 1 daily for 4 days 201 09/29/14 ZITHROMAX Z-REYNA 250 MG TABS 7735017 AZITHROMYCIN Inac tive Vital Signs Date Name [...] Measured Encounters Code Encounter Date Provider Facility CPT-22347 Level 3 Est. Patient 13:23:51 CDT Diya cobian [facility] CPT-96022 Level 3 Est. Patient 14:22:19 BACTERIOLOGIST MEDICAL Diya cobian [facility] CPT-36152 Level 3 Est. Patient 10:11:46 CDT Carlton rich MD [facility] CPT-90374 Level 3 Est. Patient 17:29:43 CDT Italo [facility] CPT-37460 Level 3 Est. Patient 11:58:06 CDT [facility] CPT-82933 Level 4 Est. Patient 14:36:51 CDT Carlton rich MD [facility] CPT-39352 Level 3 Est. Patient 18:16:00 BACTERIOLOGIST MEDICAL Blaine HERNANDEZ [facility] CPT-79052 Level 3 Est. Patient 09:45:49 BACTERIOLOGIST MEDICAL Carlton rich MD [facility] CPT-34668 Level 3 Est. Patient 13:19:20 CDT Carlton rich MD [facility] CPT-50390 Level 3 Est. Patient 13:06:43 CDT Ridge tam DO [facility] CPT-93105 Level 3 Est. Patient 10:03:07 CDT Perez Mora MD [facility]-07339 Level 3 Est. Patient 19:50:35 BACTERIOLOGIST MEDICAL Carlton rich MD [facility]-01912 Level 4 Est. Patient 18:05:01 BACTERIOLOGIST MEDICAL Carlton rich MD [facility]-44122 Level 3 Est. Patient 10:45:55 BACTERIOLOGIST MEDICAL Hugo Restrepo MD [facility]-66322 Level 3 Est. Patient 14:12:49 CDT Griffin HERNANDEZ [facility]-38837 Level 3 Est. Patient 17:37:24 CDT Carlton rich MD [facility] CPT-05696 Level 3 Est. Patient 16:51:54 CDT Carlton rich MD [facility]-34653 Level 3 Est. Patient 12:18:11 CDT Hugo Restrepo MD [facility]-56549 Level 3 Est. Patient 11:30:25 CDT Marcy crisostomo MD PhD [facility]-71682 Level 3 Est. Patient 12:00:47 BACTERIOLOGIST MEDICAL Carlton rich MD [facility]-57218 Level 3 Est. Patient 16:31:06 BACTERIOLOGIST MEDICAL Carlton rich MD [facility]-07280 Level 3 Est. Patient 16:23:24 BACTERIOLOGIST MEDICAL Ridge tam DO [facility]-39800 Level 3 Est. Patient 12:34:12 CDT Carlton rich MD [facility] CPT-86743 Level 2 Est. Patient 15:43:33 CDT Robi armstrong MD [facility] CPT-82060 Level 4 Est. Patient 14:04:44 CDT Carlton rich MD [facility] CPT-71499 Level 3 Est. Patient 05:47:59 CDT Ridge tam DO [facility] CPT-28518 Level 3 Est. Patient 13:12:53 BACTERIOLOGIST MEDICAL Carlton rich MD [facility] CPT-93147 Level 3 Est. Patient 14:26:53 CDT Hugo Restrepo MD [facility] Procedures Code Procedure Name Date Entry Date Standard Desc ription CPT-J0696 Rocephin 1gm Inj Solr 14:32:13 CDT CPT-J1020 Depo Medrol 60 mg (Methyl Prednisolone A cetate) 14:32:13 CDT CPT-J1100 Decadron 6mg (Dexamethasone) 14:32:13 CDT 2 CPT-24405 Hip bilat min 2V w AP pelvis 13:16:20 CDT 2 CPT-70138 Pelvis only 13:07:33 CDT CPT-71532 Spec Collection and Handling Fee 11:25:12 C DT CPT-77769 Fluzone Quadrivalent Intramuscular Suspe nsion 0.5 ML 14:31:55 CDT CPT-59311 Abx/Therapy Injection 13:28:47 BACTERIOLOGIST MEDICAL CPT-J2930 Solu Medrol 125 mg (Methyl Prednisolone Sodium Succinate) 12:00:47 BACTERIOLOGIST MEDICAL CPT-10293 Venipuncture Draw Fee 11:33:31 CDT CPT-76938 EKG Trac and Interp 11:21:09 CDT CPT-26889 Chest 2V Frontal and Lat 11:21:09 CDT 12/15 CPT-42919 Venipuncture Draw Fee 08:02:34 CDT CPT-88875 Chest 2V Frontal and Lat 05:47:59 CDT 06/05
--- OUTSIDE RECORDS SUMMARY | 2019-10-08 09:41 | XMS REPORT | Clinical Summary ---
Author Author Caitlin, Juliana Martinez Organization [facility] Address Unknown Phone Unavailable [...] PRN Cough 20 14/09/04 HYDROCOD POLST-CHLORPHEN POLST 70639912751 Active Elise Whitmore APRN Active ZITHROMAX 250 MG TAB 2 po today, then 1 po q days 2-5 AZITHROMYCIN 81338826208 No Longer Active Elise Whitmore APRN Acti ve TUSSIONEX PENNKINETIC ER 10-8 MG/5ML LQCR 5 ml twice a day a s needed for cough HYDROCOD POLST-CHLORPHEN POLST 98042908259 N o Longer Active Elise Whitmore APRN Active MONTELUKAST SODIUM 10 MG ORAL TABS 1 po daily for Allergy 6 MONTELUKAST SODIUM 08653521350 Active ALFREDO Holly Act nael TUSSIONEX PENNKINETIC ER 10-8 MG/5ML LQCR 5ml po q12hr PRN Cough HYDROCOD POLST-CHLORPHEN POLST 29148084387 No Longer Active Hugo Restrepo MD Active GABAPENTIN 100 MG CAPS 1 po BID for fibromyalgia GABAPENTIN 75891049569 Active Elise Whitmore APRN Active LYRICA 100 MG CAPS Take 1 tab po BID for fibromyalgia PREGABALIN 04081931469 No Longer Active Elise Whitmore APRN Acti ve PROAIR HFA 108 (90 BASE) MCG/ACT AERS 2 puffs four times a d ay as needed ALBUTEROL SULFATE 65977021585 Active Elise Whitmore APRN Active MUCINEX DM MAXIMUM STRENGTH 60-1200 MG [id number] 1 tab po q am 2016 DEXTROMETHORPHAN-GUAIFENESIN 04370277755 Active Jillina Frakerriel JIGSAWYER Active PREDNISONE 20 MG TAB 2 tabs daily for 3 days, 1 t ab daily for 3 days, 1/2 tab daily for 2 days PREDNISONE 76582375316 No Longer Active Jillina Frakerriel JIGSAWYER Active TUSSIONEX PENNKINETIC ER 10-8 MG/5ML ORAL LQCR 5 mL PO q 12 hrs PRN cough HYDROCOD POLST-CHLORPHEN POLST 65496375708 No Longer Active Jillina Frazell JIGSAWYER Active FLUTICASONE PROPIONATE 50 MCG/ACT SUSP 2 sprays each n ostril daily until bottle is empty FLUTICASONE PROPIONATE 07743223299 No Longer Ac tive Jillina Frazell JIGSAWYER Active ASMANEX 60 METERED DOSES 220 MCG/INH AEPB 1 puff bid with ri nse after MOMETASONE FUROATE 85592510970 No Longer Active Jillina Darlin ell JIGSAWYER Active ZITHROMAX Z-REYNA 250 MG TABS 2 today, then 1 daily for 4 days 201 7/02/15 AZITHROMYCIN 54786930902 No Longer Active Elise Whitmore APRN Active TUSSIONEX PENNKINETIC ER 10-8 MG/5ML LQCR 5ml po q12hr PRN Cough HYDROCOD POLST-CHLORPHEN POLST 64649567933 No Longer Active Elise Whitmore APRN Active MUCINEX D 60-600 MG [id number] 1 tab po q am PSEUDOEPHEDRINE-GUAIFENESIN 76334580948 Active Jillina Frazell JIGSAWYER Active PREDNISONE 20 MG TAB 2 tabs daily for 3 days, 1 t ab daily for 3 days, 1/2 tab daily for 2 days PREDNISONE 62110550681 No Longer Active Jillina Frazell JIGSAWYER Active AMOXICILLIN 500 MG CAPS 2 po BID x 10 days AMOX ICILLIN 48668002166 No Longer Active Jillina Frazell JIGSAWYER Active SINGULAIR 10 MG TABS 1 po qday for allergies 2 MONTELUKAST SODIUM 39057267207 No Longer Active Carlton Hu MD Acti ve LEVAQUIN 500 MG TAB 1 tablet by mouth daily LEV OFLOXACIN 18195676035 No Longer Active Carlton Hu MD Active FLUTICASONE PROPIONATE 50 MCG/ACT SUSP 2 sprays each n ostril daily for 2 weeks, then 1 spray each nostril daily. FLUTICASONE PRO PIONATE 66928734835 Active Elise Whitmore APRN Active ZITHROMAX 250 MG TAB 2 po today, then 1 po q days 2-5 AZITHROMYCIN 41610197689 No Longer Active Elise Whitmore APRN Acti ve XANAX 0.5 MG TABS one tablet by mouth daily prn anxiety ALPRAZOLAM 90194135524 Active Elise Whitmore APRN Active CYMBALTA 30 MG CPEP 1 cap by mouth daily for depression DULOXETINE HCL 88749790009 Active Carlton Hu MD Active CEFDINIR 300 MG CAPS 1 po BID x 10 days CEFDINI R 82648664553 No Longer Active Carlton Hu MD Active ZOCOR 40 MG TAB 1 tab by mouth daily SIMVASTATI N 38252517262 No Longer Active Carlton Hu MD Active CYCLOBENZAPRINE HCL 10 MG TABS 1 tablet by mouth BID prn had cherelle n CYCLOBENZAPRINE HCL 66648195498 No Longer Active Carlton Hu MD Active LEVOFLOXACIN 500 MG ORAL TABS 1 tab PO daily x 10 days LEVOFLOXACIN 66531099277 No Longer Active Carlton Hu MD Acti ve PREDNISONE 20 MG ORAL TABS 3 tab PO qd x 2d, 2 tab PO qd x 2d, 1 tab PO qd x 2d, 1/2 tab PO qd x 2d PREDNISONE 97694023608 No Longer Active Carlton Hu MD Active FLUTICASONE PROPIONATE 50 MCG/ACT SUSP 1 to 2 sprays each no stril daily FLUTICASONE PROPIONATE 12813533590 No Longer Active T jaz HERNANDEZ Active CHERATUSSIN AC 100-10 MG/5ML SYRP 1 tsp by mouth every 4 hours as needed for cough GUAIFENESIN-CODEINE 26809480495 No Longer Activ e Blaine HERNANDEZ Active PROMETHAZINE-CODEINE 6.25-10 MG/5ML SYRP 1 tsp by mout h every 6 hours if needed for cough PROMETHAZINE-CODEINE 99243513250 No Long er Active Blaine HERNANDEZ Active CHERATUSSIN AC 100-10 MG/5ML SYRP 1 tsp by mouth every 4 hours as needed for cough GUAIFENESIN-CODEINE 96380073842 No Longer Activ e Blaine HERNANDEZ Active ZITHROMAX Z-REYNA 250 MG TABS 2 today, then 1 daily for 4 days 201 08/30/03 AZITHROMYCIN 71018937555 No Longer Active Columba Raida Act nael ZITHROMAX 250 MG TAB 2 po today, then 1 po q days 2-5 AZITHROMYCIN 91453877947 No Longer Active Carlton Hu MD Acti ve ZITHROMAX Z-REYNA 250 MG TABS 2 today, then 1 daily for 4 days 201 08/07/20 AZITHROMYCIN 78991769788 No Longer Active Columba Raida Act nael AUGMENTIN 875-125 MG TAB 1 po BID x 10 days AMOXICILLIN- POT CLAVULANATE 37372887619 No Longer Active Jillina Frazell JIGSAWYER Active ZITHROMAX 250 MG TAB 2 po today, then 1 po q days 2-5 AZITHROMYCIN 78641620811 No Longer Active Carlton Hu MD Acti ve TRAMADOL HCL 50 MG TABS 1 po tid with ES Tylenol TRAMADOL HCL 31077501693 Active Carlton Hu MD Active PREMARIN 0.625 MG TABS TAKE 1 TAB BY MOUTH DAILY 07/25 ESTROGENS CONJUGATED 16299717550 No Longer Active Ridge Bess DO Active CYMBALTA 30 MG CPEP 1 cap by mouth daily DULOXE SNEHA HCL 14552286183 No Longer Active Ridge Bess DO Active AMOXICILLIN 500 MG CAP 1 tab by mouth 3 times daily x 10 days 20 14/04/28 AMOXICILLIN 54354070562 No Longer Active Carlton Hu MD Active AMOXICILLIN 500 MG CAP 1 tab by mouth 3 times daily x 10 days 20 13/03/08 AMOXICILLIN 74005770177 No Longer Active Carlton Hu MD Active PROMETHAZINE-CODEINE 6.25-10 MG/5ML SYRP 1 tsp by mouth ever y 8 hours prn cough PROMETHAZINE-CODEINE 68955942972 No Longer Active Robert Hu MD Active MEDROL (REYNA) 4 MG TABS 6 pills x 1 day, then 5 pill s x 1 day then 4 pills x 1 day, then 3 pills x 1 day, then 2 pills x 1 day, then 1 pill x 1 day, then stop METHYLPREDNISOLONE 36879447711 No Longer Active Parris Mora MD Active AZITHROMYCIN 250 MG TABS 2 po qd x 1 day, then 1 po qd x 4 days AZITHROMYCIN 04725730367 No Longer Active Perez Mora MD Active SYMBICORT 160-4.5 MCG/ACT AERO 2 puffs bid with rinse after 2011 BUDESONIDE-FORMOTEROL FUMARATE 86767023929 No Longer Active Perez Mora MD Active LYRICA 75 MG CAPS TAKE 1 CAPSULE BY MOUTH TWICE DAILY 2013 PREGABALIN 06753570559 No Longer Active Carlton Hu MD Active TOPAMAX 25 MG TABS 1 qHS x 1 week, then 1 BID x 1 week, then 1 qAM and 2 qHS x 1 week, then 2 BID (migraine prevention) TOPIRAMAT E 48036999831 No Longer Active Jerica FUENTES Active TOPAMAX 50 MG TABS take 1 tab po BID for migraines. 12/07/10 TOPIRAMATE 32750611013 No Longer Active Jerica FUENTES Ac tive TOPAMAX 100 MG TABS Take 1 tablet po bid TOPIRAMATE 4999 8010643 Active Elise Whitmore APRN Active TRIAMCINOLONE ACETONIDE 0.1 % CREA apply three times daily prn r beatrice TRIAMCINOLONE ACETONIDE 88185693965 No Longer Active Carlton Hu MD Active PAXIL 40 MG TAB take 1 tab po qday for depression PAROXETINE HCL 69497555583 Active Elise Whitmore APRN Active CHERATUSSIN AC 100-10 MG/5ML SYRP 5ml po q6hr PRN Cough GUAIFENESIN-CODEINE 83487232413 No Longer Active Carlton Hu MD Active MEDROL (REYNA) 4 MG TABS 6 tabs on day 1, 5 tabs on d ay 2, 4 tabs on day 3, 3 tabs on day 4, 2 tabs on day 5, 1 tab on day 6 METHYLPREDNISOLONE 46561583486 No Longer Active Perez Mora MD Active AZITHROMYCIN 250 MG TABS 2 po qd x 1 day, then 1 po qd x 4 days AZITHROMYCIN 63089755155 No Longer Active Perez Mora MD Active PROPRANOLOL HCL 60 MG TABS 1 PO Q D PROPRANOL OL HCL 84407450725 No Longer Active Perez Mora MD Active CHERATUSSIN AC 100-10 MG/5ML SYRP take one tsp po Q 6hours prn c ough GUAIFENESIN-CODEINE 03341403900 No Longer Active Perez Means Active AUGMENTIN 875-125 MG TAB 1 tab by mouth twice daily with food 12/03/31 AMOXICILLIN-POT CLAVULANATE 36334376836 No Longer Active Chanel Mora MD Active CHERATUSSIN AC 100-10 MG/5ML SYRP 1 tsp by mouth every 4 hours as needed for cough GUAIFENESIN-CODEINE 27626966360 No Longer Activ e Hugo Restrepo MD Active ACETAMINOPHEN-CODEINE #3 300-30 MG TABS 1 PO Q 4-6 HRS PRN PAIN ACETAMINOPHEN-CODEINE 10108815522 No Longer Active Hugo Restrepo MD Active LEVAQUIN 500 MG TABS take one po QD LEVOFLOXACI N 49654492840 No Longer Active Griffin HERNANDEZ Active PREDNISONE 20 MG TAB Take 3 tabs daily for 3 days , 2 tabs daily for 3 days, 1 tab daily for 3 days, 1/2 tab daily for 3 days P REDNISONE 81185830791 No Longer Active Carlton Hu MD Active AVELOX 400 MG TABS 1 tab by mouth daily MOXIFLO XACIN HCL 19706092988 No Longer Active Carlton Hu MD Active CHERATUSSIN AC 100-10 MG/5ML SYRP 1 tsp by mouth every 4 hours as needed for cough GUAIFENESIN-CODEINE 21530320435 No Longer Activ e Hugo Restrepo MD Active AVELOX 400 MG TABS 1 tab by mouth daily MOXIFLO XACIN HCL 24366290094 No Longer Active Marcy De La Rosa MD PhD Active TERBINAFINE HCL 250 MG TABS 1 qDay TERBINAF INE HCL 57463319941 No Longer Active Marcy De La Rosa MD PhD Active CHERATUSSIN AC 100-10 MG/5ML SYRP 1 tsp by mouth every 4 hours as needed for cough GUAIFENESIN-CODEINE 65040002599 No Longer Activ e Marcy De La Rosa MD PhD Active AVELOX 400 MG TABS 1 tab by mouth daily MOXIFLO XACIN HCL 95583740725 No Longer Active Marcy De La Rosa MD PhD Active HYDROCODONE-ACETAMINOPHEN 5-325 MG TABS 1 po q 6hr PRN cough 201 05/09/16 HYDROCODONE-ACETAMINOPHEN 14115464021 No Longer Active Marcy De La Rosa MD PhD Active PREDNISONE 20 MG TAB 2 tabs daily for 3 days, 1 t ab daily for 3 days, 1/2 tab daily for 2 days PREDNISONE 33535359255 No Longer Active Carlton Hu MD Active CEFDINIR 300 MG CAPS by mouth twice a day CEFDI ODILIA 01825415984 No Longer Active Carlton Hu MD Active HYDROCHLOROTHIAZIDE 25 MG TABS 1 TAB PO DAILY H YDROCHLOROTHIAZIDE 26710002917 Active Carlton Hu MD Active ACETAMINOPHEN-CODEINE #3 300-30 MG TABS 1 tablet po q 4-6hrs prn pain ACETAMINOPHEN-CODEINE 14649309922 No Longer Active Ridge Bess DO Active ZITHROMAX 250 MG TAB 2 po today, then 1 po q days 2-5 AZITHROMYCIN 64003600299 No Longer Active Carlton Hu MD Acti ve CHERATUSSIN AC 100-10 MG/5ML SYRP take 1 tsp po q4-6 hours prn c ough GUAIFENESIN-CODEINE 60473905026 No Longer Active Carlton Hu MD Active ACETAMINOPHEN-CODEINE #3 300-30 MG TABS 1 PO Q 4-6 HR PRN PAIN 2 ACETAMINOPHEN-CODEINE 69227147602 No Longer Active Carlton rich MD Active LORTAB 7.5-500 MG/15ML ELIX 7.5 ml po q 4 hour prn cough HYDROCODONE-ACETAMINOPHEN 26640861044 No Longer Active Carlton Hu MD Active PREDNISONE 20 MG TAB 1 po bid 3 days, then 1 po q day 3 days 201 05/03/07 PREDNISONE 14678058586 No Longer Active Carlton Hu MD Active ELMIRON 100 MG CAPS 2 tablets in the am and 1 tablet at hs PENTOSAN POLYSULFATE SODIUM 54727102205 Active Carlton Hu MD Ac tive CEFDINIR 300 MG CAPS by mouth twice a day CEFDI ODILIA 56163152775 No Longer Active Carlton Hu MD Active CEFDINIR 300 MG CAPS by mouth twice a day CEFDI ODILIA 76559155786 No Longer Active Carlton Hu MD Active CEFDINIR 300 MG CAPS by mouth twice a day CEFDI ODILIA 85462804723 No Longer Active Carlton Hu MD Active TESSALON PERLES 100 MG CAP 1 tablet by mouth 3 times daily a s needed for cough BENZONATATE 88737897936 No Longer Active Carlton bustamante MD Active CEFDINIR 300 MG CAPS by mouth twice a day CEFDI ODILIA 51159947735 No Longer Active Carlton Hu MD Active ZITHROMAX Z-REYNA 250 MG TABS 2 today, then 1 daily for 4 days 201 04/09/17 AZITHROMYCIN 07732723488 No Longer Active Hugo Restrepo MD Active TESSALON PERLES 100 MG CAP 1 tablet by mouth 3 times daily a s needed for cough TESSALON PERLES 100 MG CAP 704014 BENZONATATE I nactive PREDNISONE 20 MG TAB 1 po bid 3 days, then 1 po q day 3 days 201 05/03/07 PREDNISONE 20 MG TAB 708001 PREDNISONE Inactive LORTAB 7.5-500 MG/15ML ELIX 7.5 ml po q 4 hour prn cough LORTAB 7.5-500 MG/15ML ELIX HYDROCODONE-ACETAMINOPHEN Inacti ve ACETAMINOPHEN-CODEINE #3 300-30 MG TABS 1 PO Q 4-6 HR PRN PAIN 2 ACETAMINOPHEN-CODEINE #3 300-30 MG TABS ACETAMIN OPHEN-CODEINE Inactive CHERATUSSIN AC 100-10 MG/5ML SYRP take 1 tsp po q4-6 hours prn c ough CHERATUSSIN AC 100-10 MG/5ML SYRP 978572 GUAIFENESIN-CO DEINE Inactive ACETAMINOPHEN-CODEINE #3 300-30 MG TABS 1 tablet po q 4-6hrs prn pain ACETAMINOPHEN-CODEINE #3 300-30 MG TABS ACETAMIN OPHEN-CODEINE Inactive HYDROCODONE-ACETAMINOPHEN 5-325 MG TABS 1 po q 6hr PRN cough 201 05/09/16 HYDROCODONE-ACETAMINOPHEN 5-325 MG TABS 907513 HYDROCODONE-ACETAMINOPHEN Inactive AVELOX 400 MG TABS 1 tab by mouth daily A VELOX 400 MG TABS 551112 MOXIFLOXACIN HCL Inactive CHERATUSSIN AC 100-10 MG/5ML SYRP 1 tsp by mouth every 4 hours as needed for cough CHERATUSSIN AC 100-10 MG/5ML SYRP 745874 GUAIFENESIN-CODEINE Inactive TERBINAFINE HCL 250 MG TABS 1 qDay TERBINAFINE HCL 250 MG TABS 513313 TERBINAFINE HCL Inactive CHERATUSSIN AC 100-10 MG/5ML SYRP 1 tsp by mouth every 4 hours as needed for cough CHERATUSSIN AC 100-10 MG/5ML SYRP 459602 GUAIFENESIN-CODEINE Inactive ACETAMINOPHEN-CODEINE #3 300-30 MG TABS 1 PO Q 4-6 HRS PRN PAIN ACETAMINOPHEN-CODEINE #3 300-30 MG TABS ACETAMINOPHEN-CODEIN E Inactive CHERATUSSIN AC 100-10 MG/5ML SYRP 1 tsp by mouth every 4 hours as needed for cough CHERATUSSIN AC 100-10 MG/5ML SYRP 497205 GUAIFENESIN-CODEINE Inactive AUGMENTIN 875-125 MG TAB 1 tab by mouth twice daily with food 20 12/03/31 AUGMENTIN 875-125 MG TAB 020306 AMOXICILLIN-POT CLAVULA EFE Inactive CHERATUSSIN AC 100-10 MG/5ML SYRP take one tsp po Q 6hours prn c ough CHERATUSSIN AC 100-10 MG/5ML SYRP 295864 GUAIFENESIN-CO DEINE Inactive PROPRANOLOL HCL 60 MG TABS 1 PO Q D P ROPRANOLOL HCL 60 MG TABS 524056 PROPRANOLOL HCL Inactive TOPAMAX 50 MG TABS take 1 tab po BID for migraines. 12/07/10 TOPAMAX 50 MG TABS 602383 TOPIRAMATE Inactive TOPAMAX 25 MG TABS 1 qHS x 1 week, then 1 BID x 1 week, then 1 qAM and 2 qHS x 1 week, then 2 BID (migraine prevention) TOPAMAX 2 5 MG TABS 278349 TOPIRAMATE Inactive LYRICA 75 MG CAPS TAKE 1 CAPSULE BY MOUTH TWICE DAILY LYRICA 75 MG CAPS PREGABALIN Inactive SYMBICORT 160-4.5 MCG/ACT AERO 2 puffs bid with rinse after 2011 SYMBICORT 160-4.5 MCG/ACT AERO BUDESONIDE-FORMOT SÁNCHEZ FUMARATE Inactive PROMETHAZINE-CODEINE 6.25-10 MG/5ML SYRP 1 tsp by mouth ever y 8 hours prn cough PROMETHAZINE-CODEINE 6.25-10 MG/5ML SYRP 420566 PROMETHAZINE-CODEINE Inactive CYMBALTA 30 MG CPEP 1 cap by mouth daily CYMBALTA 30 MG CPEP 886061 DULOXETINE HCL Inactive PREMARIN 0.625 MG TABS TAKE 1 TAB BY MOUTH DAILY 07/25 PREMARIN 0.625 MG TABS ESTROGENS CONJUGATED Inactive CHERATUSSIN AC 100-10 MG/5ML SYRP 1 tsp by mouth every 4 hours as needed for cough CHERATUSSIN AC 100-10 MG/5ML SYRP 967399 GUAIFENESIN-CODEINE Inactive PROMETHAZINE-CODEINE 6.25-10 MG/5ML SYRP 1 tsp by mout h every 6 hours if needed for cough PROMETHAZINE-CODEINE 6.25-10 MG/5ML SYRP 250214 PROMETHAZINE-CODEINE Inactive CHERATUSSIN AC 100-10 MG/5ML SYRP 1 tsp by mouth every 4 hours as needed for cough CHERATUSSIN AC 100-10 MG/5ML SYRP 388990 GUAIFENESIN-CODEINE Inactive FLUTICASONE PROPIONATE 50 MCG/ACT SUSP 1 to 2 sprays each no stril daily FLUTICASONE PROPIONATE 50 MCG/ACT SUSP 4166990 FLUTICASONE PROPIONATE Inactive PREDNISONE 20 MG ORAL TABS 3 tab PO qd x 2d, 2 tab PO qd x 2d, 1 tab PO qd x 2d, 1/2 tab PO qd x 2d PREDNISONE 20 MG ORAL TABS 261211 PREDNISONE Inactive LEVOFLOXACIN 500 MG ORAL TABS 1 tab PO daily x 10 days LEVOFLOXACIN 500 MG ORAL TABS 388007 LEVOFLOXACIN Inactive CYCLOBENZAPRINE HCL 10 MG TABS 1 tablet by mouth BID prn had cherelle n CYCLOBENZAPRINE HCL 10 MG TABS 824112 CYCLOBENZAPRINE H CL Inactive ZOCOR 40 MG TAB 1 tab by mouth daily ZOCOR 40 M G TAB 255777 SIMVASTATIN Inactive TUSSIONEX PENNKINETIC ER 10-8 MG/5ML [...] empty FLUTICASONE PROPIONATE 50 MCG/ACT SUSP 17 67620 FLUTICASONE PROPIONATE Inactive TUSSIONEX PENNKINETIC ER 10-8 [...] 201 04/09/17 ZITHROMAX Z-REYNA 250 MG TABS 3993946 AZITHROMYCIN Inac tive CEFDINIR 300 MG CAPS [...] q days 2-5 ZITHROMAX 250 MG TAB 7264574 AZITHROMYCIN Inactive CEFDINIR 300 MG CAPS by mouth twice a day CEFDINIR 300 MG CAPS 20020704 CEFDINIR Inactive PREDNISONE 20 MG TAB 2 tabs daily for 3 days, 1 t ab daily for 3 days, 1/2 tab daily for 2 days PREDNISONE 20 MG TAB 576391 PREDNISON E Inactive AVELOX 400 MG TABS 1 tab by mouth daily A VELOX 400 MG TABS 556054 MOXIFLOXACIN HCL Inactive AVELOX 400 MG TABS 1 tab by mouth daily A VELOX 400 MG TABS 196470 MOXIFLOXACIN HCL Inactive PREDNISONE 20 MG TAB Take 3 tabs daily for 3 days , 2 tabs daily for 3 days, 1 tab daily for 3 days, 1/2 tab daily for 3 days PREDNISONE 20 MG TAB 458616 PREDNISONE Inactive LEVAQUIN 500 MG TABS take one po QD LEVAQUIN 50 0 MG TABS 646002 LEVOFLOXACIN Inactive AZITHROMYCIN 250 MG TABS 2 po qd x 1 day, then 1 po qd x 4 days AZITHROMYCIN 250 MG TABS 3649022 AZITHROMYCIN Inactiv e MEDROL (REYNA) 4 MG TABS 6 tabs on day 1, 5 tabs on d ay 2, 4 tabs on day 3, 3 tabs on day 4, 2 tabs on day 5, 1 tab on day 6 MEDROL (REYNA) 4 MG TABS 199158 METHYLPREDNISOLONE Inactive CHERATUSSIN AC 100-10 MG/5ML SYRP 5ml po q6hr PRN Cough CHERATUSSIN AC 100-10 MG/5ML SYRP 139801 GUAIFENESIN-CODEINE Inacti ve TRIAMCINOLONE ACETONIDE 0.1 % CREA apply three times daily prn r beatrice TRIAMCINOLONE ACETONIDE 0.1 % CREA 4439529 TRIAMCINOLONE ACETONIDE Inactive AZITHROMYCIN 250 MG TABS 2 po qd x 1 day, then 1 po qd x 4 days AZITHROMYCIN 250 MG TABS 4141477 AZITHROMYCIN Inactiv e MEDROL (REYNA) 4 MG TABS 6 pills x 1 day, then 5 pill s x 1 day then 4 pills x 1 day, then 3 pills x 1 day, then 2 pills x 1 day, then 1 pill x 1 day, then stop MEDROL (REYNA) 4 MG TABS 885779 METHYLPREDNISOLONE Inactive AMOXICILLIN 500 MG CAP 1 tab by mouth 3 times daily x 10 days 20 13/03/08 AMOXICILLIN 500 MG CAP 416765 AMOXICILLIN Inactive AMOXICILLIN 500 MG CAP 1 tab by mouth 3 times daily x 10 days 20 14/04/28 AMOXICILLIN 500 MG CAP 758690 AMOXICILLIN Inactive ZITHROMAX 250 MG TAB 2 po today, then 1 po q days 2-5 ZITHROMAX 250 MG TAB 2486266 AZITHROMYCIN Inactive AUGMENTIN 875-125 MG TAB 1 po BID x 10 days AUGMENTIN 875- 125 MG TAB 776518 AMOXICILLIN-POT CLAVULANATE Inactive ZITHROMAX Z-REYNA 250 MG TABS 2 today, then 1 daily for 4 days 201 08/07/20 ZITHROMAX Z-REYNA 250 MG TABS 5905817 AZITHROMYCIN Inac tive ZITHROMAX 250 MG TAB 2 po today, then 1 po q days 2-5 ZITHROMAX 250 MG TAB 3959147 AZITHROMYCIN Inactive ZITHROMAX Z-REYNA 250 MG TABS 2 today, then 1 daily for 4 days 201 08/30/03 ZITHROMAX Z-REYNA 250 MG TABS 9473117 AZITHROMYCIN Inac tive CEFDINIR 300 MG CAPS 1 po BID x 10 days C EFDINIR 300 MG CAPS 20020704 CEFDINIR Inactive ZITHROMAX 250 MG TAB 2 po today, then 1 po q days 2-5 ZITHROMAX 250 MG TAB 6378596 AZITHROMYCIN Inactive LEVAQUIN 500 MG TAB 1 tablet by mouth daily LEVAQUIN 500 MG TAB 884847 LEVOFLOXACIN Inactive SINGULAIR 10 MG TABS 1 po qday for allergies 2 SINGULAIR 10 MG TABS 20010504 MONTELUKAST SODIUM Inactive AMOXICILLIN 500 MG CAPS 2 po BID x 10 days AMOXICILLIN 500 MG CAPS 252730 AMOXICILLIN Inactive PREDNISONE 20 MG TAB 2 tabs daily for 3 days, 1 t ab daily for 3 days, 1/2 tab daily for 2 days PREDNISONE 20 MG TAB 657597 PREDNISON E Inactive ZITHROMAX Z-REYNA 250 MG TABS 2 today, then 1 daily for 4 days 201 09/29/14 ZITHROMAX Z-REYNA 250 MG TABS 8174039 AZITHROMYCIN Inac tive PREDNISONE 20 MG TAB 2 tabs daily for 3 days, 1 t ab daily for 3 days, 1/2 tab daily for 2 days PREDNISONE 20 MG TAB 765171 PREDNISON E Inactive ZITHROMAX 250 MG TAB 2 po today, then 1 po q days 2-5 ZITHROMAX 250 MG TAB 9792323 AZITHROMYCIN Inactive Vital Signs Date Name Value [...] Negative Encounters Code Encounter Date Provider Facility CPT-75587 Level 3 Est. Patient 12:17:50 CDT Hugo Restrepo MD [facility] CPT-68539 Level 3 Est. Patient 13:42:38 CDT Italo [facility] CPT-14457 Level 3 Est. Patient 13:23:51 CDT Diya cobian [facility]-29024 Level 3 Est. Patient 14:22:19 TALENT ADVISOR Diya holtgideon [facility] CPT-29825 Level 3 Est. Patient 10:11:46 CDT Carlton rich MD [facility]-22897 Level 3 Est. Patient 17:29:43 CDT Elise Cesar spaulding [facility] CPT-11729 Level 3 Est. Patient 11:58:06 CDT Elise Guerrero asaelgiselle [facility] CPT-94543 Level 4 Est. Patient 14:36:51 CDT Carlton rich MD [facility]-50633 Level 3 Est. Patient 18:16:00 TALENT ADVISOR Blaine Freeman [facility] CPT-39774 Level 3 Est. Patient 09:45:49 TALENT ADVISOR Carlton rich MD [facility]-94565 Level 3 Est. Patient 13:19:20 CDT aCrlton rich MD [facility] CPT-94729 Level 3 Est. Patient 13:06:43 CDT Ridge tam DO [facility] CPT-90141 Level 3 Est. Patient 10:03:07 CDT Perez Mora MD [facility] CPT-30006 Level 3 Est. Patient 19:50:35 TALENT ADVISOR Carlton rich MD [facility] CPT-91705 Level 4 Est. Patient 18:05:01 TALENT ADVISOR Carlton rich MD [facility]-53231 Level 3 Est. Patient 10:45:55 TALENT ADVISOR Hugo Restrepo MD [facility]-41562 Level 3 Est. Patient 14:12:49 CDT Griffin lincoln [facility] CPT-31793 Level 3 Est. Patient 17:37:24 CDT Carlton rich MD [facility] CPT-87347 Level 3 Est. Patient 16:51:54 CDT Carlton rich MD [facility]-23044 Level 3 Est. Patient 12:18:11 CDT Hugo Restrepo MD [facility]-29490 Level 3 Est. Patient 11:30:25 CDT Marcy crisostomo MD PhD [facility]-76806 Level 3 Est. Patient 12:00:47 TALENT ADVISOR Carlton rich MD [facility]-42708 Level 3 Est. Patient 16:31:06 TALENT ADVISOR Carlton rich MD [facility]-82463 Level 3 Est. Patient 16:23:24 TALENT ADVISOR Ridge tam [facility] CPT-47557 Level 3 Est. Patient 12:34:12 CDT Carlton rich MD [facility] CPT-40711 Level 2 Est. Patient 15:43:33 CDT Robi armstrong MD [facility]-90700 Level 4 Est. Patient 14:04:44 CDT Carlton rich MD [facility]-13262 Level 3 Est. Patient 05:47:59 CDT Ridge tam [facility] CPT-87794 Level 3 Est. Patient 13:12:53 TALENT ADVISOR Carlton rich MD [facility]-95105 Level 3 Est. Patient 14:26:53 CDT Hugo Restrepo MD [facility] Procedures Code Procedure Name Date Entry Date Standard Desc ription CPT-J1040 Depo Medrol 80 mg (Methyl Prednisolone A cetate) 10:42:44 CDT CPT-J1100 Decadron 8mg (Dexamethasone) 10:42:44 CDT 2 CPT-J0696 Rocephin 1gm Inj Solr 14:32:13 CDT CPT-J1020 Depo Medrol 60 mg (Methyl Prednisolone A cetate) 14:32:13 CDT CPT-J1100 Decadron 6mg (Dexamethasone) 14:32:13 CDT 2 CPT-47657 Hip bilat min 2V w AP pelvis 13:16:20 CDT 2 CPT-28631 Pelvis only 13:07:33 CDT CPT-12219 Spec Collection and Handling Fee 11:25:12 C DT CPT-23494 Fluzone Quadrivalent Intramuscular Suspe nsion 0.5 ML 14:31:55 CDT CPT-01150 Abx/Therapy Injection 13:28:47 TALENT ADVISOR CPT-J2930 Solu Medrol 125 mg (Methyl Prednisolone Sodium Succinate) 12:00:47 TALENT ADVISOR CPT-64537 Venipuncture Draw Fee 11:33:31 CDT CPT-01650 EKG Trac and Interp 11:21:09 CDT CPT-04340 Chest 2V Frontal and Lat 11:21:09 CDT 12/15 CPT-85871 Venipuncture Draw Fee 08:02:34 CDT CPT-76511 Chest 2V Frontal and Lat 05:47:59 CDT 06/05
--- OUTSIDE RECORDS SUMMARY | 2019-10-08 09:41 | XMS REPORT | Clinical Summary ---
[...] MD PhD DYSPNEA ICD-786.05 Inactive Marcy De L aRosa MD P [facility] HEALTH SCREENING ICD-V70.0 Inactive [...] po tid with ES Tylenol TRAMADOL HCL [id number] Active Ridge Bess DO Active PREMARIN 0.625 MG TABS TAKE 1 TAB BY MOUTH DAILY 07/25 ESTROGENS CONJUGATED [id number] No Longer Active Ridge Bess DO Active CYMBALTA 30 MG CPEP 1 cap by mouth daily DULOXE SNEHA HCL 25333403821 No Longer Active Ridge Bess DO Active AMOXICILLIN 500 MG CAP 1 tab by mouth 3 times daily x 10 days 20 14/04/28 AMOXICILLIN 57471846379 No Longer Active Carlton Hu MD Active AMOXICILLIN 500 MG CAP 1 tab by mouth 3 times daily x 10 days 20 13/03/08 AMOXICILLIN 56134585885 No Longer Active Carlton Hu MD Active CHERATUSSIN AC 100-10 MG/5ML SYRP 1 tsp by mouth every 4 hours as needed for cough GUAIFENESIN-CODEINE 99693391267 Active Carlton banks MD Active CYCLOBENZAPRINE HCL 10 MG TABS 1 tablet by mouth BID prn had pain 2 CYCLOBENZAPRINE HCL 57917495752 Active Carlton Hu MD A ctive PROMETHAZINE-CODEINE 6.25-10 MG/5ML SYRP 1 tsp by mouth ever y 8 hours prn cough PROMETHAZINE-CODEINE 81952925644 No Longer Active Robert jade Hu MD Active MEDROL (REYNA) 4 MG TABS 6 pills x 1 day, then 5 pill s x 1 day then 4 pills x 1 day, then 3 pills x 1 day, then 2 pills x 1 day, then 1 pill x 1 day, then stop METHYLPREDNISOLONE 26632011660 No Longer Active Parris Mora MD Active AZITHROMYCIN 250 MG TABS 2 po qd x 1 day, then 1 po qd x 4 days AZITHROMYCIN 85684855270 No Longer Active Perez Mora MD Active SYMBICORT 160-4.5 MCG/ACT AERO 2 puffs bid with rinse after 2011 BUDESONIDE-FORMOTEROL FUMARATE 18422559027 No Longer Active Perez Mora MD Active LYRICA 75 MG CAPS TAKE 1 CAPSULE BY MOUTH TWICE DAILY 2013 PREGABALIN 38810581794 No Longer Active Carlton Hu MD Active LYRICA 100 MG CAPS Take 1 tab po BID for fibromyalgia PREGABALIN 87152143847 Active Carlton Hu MD Active TOPAMAX 25 MG TABS 1 qHS x 1 week, then 1 BID x 1 week, then 1 qAM and 2 qHS x 1 week, then 2 BID (migraine prevention) TOPIRAMAT E 78314114936 No Longer Active Jerica FUENTES Active TOPAMAX 50 MG TABS take 1 tab po BID for migraines. 12/07/10 TOPIRAMATE 22065885325 No Longer Active Jerica AGUILARA Ac tive TOPAMAX 100 MG TABS Take 1 tablet po bid TOPIRAMATE 4999 3017737 Active Carlton Hu MD Active TRIAMCINOLONE ACETONIDE 0.1 % CREA apply three times daily prn r beatrice TRIAMCINOLONE ACETONIDE 00862199095 No Longer Active Carlton Hu MD Active PAXIL 40 MG TAB take 1 tab po qday for depression PAROXETINE HCL 35726581156 Active Carlton Hu MD Active CHERATUSSIN AC 100-10 MG/5ML SYRP 5ml po q6hr PRN Cough GUAIFENESIN-CODEINE 85714572924 No Longer Active Carlton Hu MD Active MEDROL (REYNA) 4 MG TABS 6 tabs on day 1, 5 tabs on d ay 2, 4 tabs on day 3, 3 tabs on day 4, 2 tabs on day 5, 1 tab on day 6 METHYLPREDNISOLONE 43642933819 No Longer Active Perez Mora MD Active AZITHROMYCIN 250 MG TABS 2 po qd x 1 day, then 1 po qd x 4 days AZITHROMYCIN 59785681821 No Longer Active Perez Mora MD Active PROPRANOLOL HCL 60 MG TABS 1 PO Q D PROPRANOL OL HCL 06262542535 No Longer Active Perez Mora MD Active CHERATUSSIN AC 100-10 MG/5ML SYRP take one tsp po Q 6hours prn c ough GUAIFENESIN-CODEINE 08459067771 No Longer Active Perez Means Active AUGMENTIN 875-125 MG TAB 1 tab by mouth twice daily with food 20 12/03/31 AMOXICILLIN-POT CLAVULANATE 62933620075 No Longer Active Chanel Mora MD Active CHERATUSSIN AC 100-10 MG/5ML SYRP 1 tsp by mouth every 4 hours as needed for cough GUAIFENESIN-CODEINE 50748204966 No Longer Activ e Hugo Restrepo MD Active ACETAMINOPHEN-CODEINE #3 300-30 MG TABS 1 PO Q 4-6 HRS PRN PAIN ACETAMINOPHEN-CODEINE 61344820306 No Longer Active Hugo Restrepo MD Active LEVAQUIN 500 MG TABS take one po QD LEVOFLOXACI N 40240384847 No Longer Active Griffin HERNANDEZ Active PREDNISONE 20 MG TAB Take 3 tabs daily for 3 days , 2 tabs daily for 3 days, 1 tab daily for 3 days, 1/2 tab daily for 3 days P REDNISONE 54314277722 No Longer Active Carlton Hu MD Active AVELOX 400 MG TABS 1 tab by mouth daily MOXIFLO XACIN HCL 85119050151 No Longer Active Carlton Hu MD Active CHERATUSSIN AC 100-10 MG/5ML SYRP 1 tsp by mouth every 4 hours as needed for cough GUAIFENESIN-CODEINE 73863303755 No Longer Activ e Hugo Restrepo MD Active AVELOX 400 MG TABS 1 tab by mouth daily MOXIFLO XACIN HCL 58330824100 No Longer Active Marcy De La Rosa MD PhD Active TERBINAFINE HCL 250 MG TABS 1 qDay TERBINAF INE HCL 48800981785 No Longer Active Marcy De La Rosa MD PhD Active CHERATUSSIN AC 100-10 MG/5ML SYRP 1 tsp by mouth every 4 hours as needed for cough GUAIFENESIN-CODEINE 04524834501 No Longer Activ e Marcy De La Rosa MD PhD Active AVELOX 400 MG TABS 1 tab by mouth daily MOXIFLO XACIN HCL 80406929317 No Longer Active Marcy De La Rosa MD PhD Active HYDROCODONE-ACETAMINOPHEN 5-325 MG TABS 1 po q 6hr PRN cough 201 05/09/16 HYDROCODONE-ACETAMINOPHEN 46207093406 No Longer Active Marcy De La Rosa MD PhD Active PREDNISONE 20 MG TAB 2 tabs daily for 3 days, 1 t ab daily for 3 days, 1/2 tab daily for 2 days PREDNISONE 32762033740 No Longer Active Carlton Hu MD Active CEFDINIR 300 MG CAPS by mouth twice a day CEFDI ODILIA 28878356326 No Longer Active Carlton Hu MD Active ZOCOR 40 MG TAB 1 tab by mouth daily SIMVASTATIN 48597003871 Active Carlton Hu MD Active HYDROCHLOROTHIAZIDE 25 MG TABS 1 TAB PO DAILY H YDROCHLOROTHIAZIDE 03516902787 Active Carlton Hu MD Active ACETAMINOPHEN-CODEINE #3 300-30 MG TABS 1 tablet po q 4-6hrs prn pain ACETAMINOPHEN-CODEINE 59859091901 No Longer Active Ridge Bess DO Active ZITHROMAX 250 MG TAB 2 po today, then 1 po q days 2-5 AZITHROMYCIN 65772908219 No Longer Active Carlton Hu MD Acti ve CHERATUSSIN AC 100-10 MG/5ML SYRP take 1 tsp po q4-6 hours prn c ough GUAIFENESIN-CODEINE 77856242002 No Longer Active Carlton Hu MD Active ACETAMINOPHEN-CODEINE #3 300-30 MG TABS 1 PO Q 4-6 HR PRN PAIN 2 ACETAMINOPHEN-CODEINE 52131263217 No Longer Active Carlton rich MD Active LORTAB 7.5-500 MG/15ML ELIX 7.5 ml po q 4 hour prn cough HYDROCODONE-ACETAMINOPHEN 84867088619 No Longer Active Carlton Hu MD Active PREDNISONE 20 MG TAB 1 po bid 3 days, then 1 po q day 3 days 201 05/03/07 PREDNISONE 35112482640 No Longer Active Carlton Hu MD Active ELMIRON 100 MG CAPS 2 tablets in the am and 1 tablet at hs PENTOSAN POLYSULFATE SODIUM 78770221371 Active Gracie Moreno Active CEFDINIR 300 MG CAPS by mouth twice a day CEFDI ODILIA 88149538628 No Longer Active Carlton Hu MD Active CEFDINIR 300 MG CAPS by mouth twice a day CEFDI ODILIA 48908186435 No Longer Active Carlton Hu MD Active CEFDINIR 300 MG CAPS by mouth twice a day CEFDI ODILIA 64433469047 No Longer Active Carlton Hu MD Active TESSALON PERLES 100 MG CAP 1 tablet by mouth 3 times daily a s needed for cough BENZONATATE 05873086031 No Longer Active Carlton bustamante MD Active CEFDINIR 300 MG CAPS by mouth twice a day CEFDI ODILIA 94244037485 No Longer Active Carlton Hu MD Active ZITHROMAX Z-REYNA 250 MG TABS 2 today, then 1 daily for 4 days 201 04/09/17 AZITHROMYCIN 81251438850 No Longer Active Hugo Restrepo MD Active TESSALON PERLES 100 MG CAP 1 tablet by mouth 3 times daily a s needed for cough TESSALON PERLES 100 MG CAP 690828 BENZONATATE I nactive PREDNISONE 20 MG TAB 1 po bid 3 days, then 1 po q day 3 days 201 05/03/07 PREDNISONE 20 MG TAB 645245 PREDNISONE Inactive LORTAB 7.5-500 MG/15ML ELIX 7.5 ml po q 4 hour prn cough LORTAB 7.5-500 MG/15ML ELIX HYDROCODONE-ACETAMINOPHEN Inacti ve ACETAMINOPHEN-CODEINE #3 300-30 MG TABS 1 PO Q 4-6 HR PRN PAIN 2 ACETAMINOPHEN-CODEINE #3 300-30 MG TABS 555618 ACETAMIN OPHEN-CODEINE Inactive CHERATUSSIN AC 100-10 MG/5ML SYRP take 1 tsp po q4-6 hours prn c ough CHERATUSSIN AC 100-10 MG/5ML SYRP 619803 GUAIFENESIN-CO DEINE Inactive ACETAMINOPHEN-CODEINE #3 300-30 MG TABS 1 tablet po q 4-6hrs prn pain ACETAMINOPHEN-CODEINE #3 300-30 MG TABS 833840 ACETAMIN OPHEN-CODEINE Inactive HYDROCODONE-ACETAMINOPHEN 5-325 MG TABS 1 po q 6hr PRN cough 201 05/09/16 HYDROCODONE-ACETAMINOPHEN 5-325 MG TABS 971130 HYDROCODONE-ACETAMINOPHEN Inactive AVELOX 400 MG TABS 1 tab by mouth daily A VELOX 400 MG TABS 166585 MOXIFLOXACIN HCL Inactive CHERATUSSIN AC 100-10 MG/5ML SYRP 1 tsp by mouth every 4 hours as needed for cough CHERATUSSIN AC 100-10 MG/5ML SYRP 257473 GUAIFENESIN-CODEINE Inactive TERBINAFINE HCL 250 MG TABS 1 qDay TERBINAFINE HCL 250 MG TABS 127644 TERBINAFINE HCL Inactive CHERATUSSIN AC 100-10 MG/5ML SYRP 1 tsp by mouth every 4 hours as needed for cough CHERATUSSIN AC 100-10 MG/5ML SYRP 703294 GUAIFENESIN-CODEINE Inactive ACETAMINOPHEN-CODEINE #3 300-30 MG TABS 1 PO Q 4-6 HRS PRN PAIN ACETAMINOPHEN-CODEINE #3 300-30 MG TABS 566126 ACETAMINOPHEN-CODEIN E Inactive CHERATUSSIN AC 100-10 MG/5ML SYRP 1 tsp by mouth every 4 hours as needed for cough CHERATUSSIN AC 100-10 MG/5ML SYRP 809424 GUAIFENESIN-CODEINE Inactive AUGMENTIN 875-125 MG TAB 1 tab by mouth twice daily with food 20 12/03/31 AUGMENTIN 875-125 MG TAB 760276 AMOXICILLIN-POT CLAVULA EFE Inactive CHERATUSSIN AC 100-10 MG/5ML SYRP take one tsp po Q 6hours prn c ough CHERATUSSIN AC 100-10 MG/5ML SYRP 409861 GUAIFENESIN-CO DEINE Inactive PROPRANOLOL HCL 60 MG TABS 1 PO Q D P ROPRANOLOL HCL 60 MG TABS 800211 PROPRANOLOL HCL Inactive TOPAMAX 50 MG TABS take 1 tab po BID for migraines. 12/07/10 TOPAMAX 50 MG TABS 701162 TOPIRAMATE Inactive TOPAMAX 25 MG TABS 1 qHS x 1 week, then 1 BID x 1 week, then 1 qAM and 2 qHS x 1 week, then 2 BID (migraine prevention) TOPAMAX 2 5 MG TABS 683794 TOPIRAMATE Inactive LYRICA 75 MG CAPS TAKE 1 CAPSULE BY MOUTH TWICE DAILY LYRICA 75 MG CAPS PREGABALIN Inactive SYMBICORT 160-4.5 MCG/ACT AERO 2 puffs bid with rinse after 2011 SYMBICORT 160-4.5 MCG/ACT AERO BUDESONIDE-FORMOT SÁNCHEZ FUMARATE Inactive PROMETHAZINE-CODEINE 6.25-10 MG/5ML SYRP 1 tsp by mouth ever y 8 hours prn cough PROMETHAZINE-CODEINE 6.25-10 MG/5ML SYRP 392618 PROMETHAZINE-CODEINE Inactive CYMBALTA 30 MG CPEP 1 cap by mouth daily CYMBALTA 30 MG CPEP 338370 DULOXETINE HCL Inactive PREMARIN 0.625 MG TABS TAKE 1 TAB BY MOUTH DAILY 07/25 PREMARIN 0.625 MG TABS ESTROGENS CONJUGATED Inactive ZITHROMAX Z-REYNA 250 MG TABS 2 today, then 1 daily for 4 days 201 04/09/17 ZITHROMAX Z-REYNA 250 MG TABS 4020728 AZITHROMYCIN Inac tive CEFDINIR 300 MG CAPS [...] q days 2-5 ZITHROMAX 250 MG TAB 5729841 AZITHROMYCIN Inactive CEFDINIR 300 MG CAPS by mouth twice a day CEFDINIR 300 MG CAPS 20020704 CEFDINIR Inactive PREDNISONE 20 MG TAB 2 tabs daily for 3 days, 1 t ab daily for 3 days, 1/2 tab daily for 2 days PREDNISONE 20 MG TAB 988120 PREDNISON E Inactive AVELOX 400 MG TABS 1 tab by mouth daily A VELOX 400 MG TABS 892272 MOXIFLOXACIN HCL Inactive AVELOX 400 MG TABS 1 tab by mouth daily A VELOX 400 MG TABS 429379 MOXIFLOXACIN HCL Inactive PREDNISONE 20 MG TAB Take 3 tabs daily for 3 days , 2 tabs daily for 3 days, 1 tab daily for 3 days, 1/2 tab daily for 3 days PREDNISONE 20 MG TAB 816828 PREDNISONE Inactive LEVAQUIN 500 MG TABS take one po QD LEVAQUIN 50 0 MG TABS 434135 LEVOFLOXACIN Inactive AZITHROMYCIN 250 MG TABS 2 po qd x 1 day, then 1 po qd x 4 days AZITHROMYCIN 250 MG TABS 8591809 AZITHROMYCIN Inactiv e MEDROL (REYNA) 4 MG TABS 6 tabs on day 1, 5 tabs on d ay 2, 4 tabs on day 3, 3 tabs on day 4, 2 tabs on day 5, 1 tab on day 6 MEDROL (REYNA) 4 MG TABS METHYLPREDNISOLONE Inactive CHERATUSSIN AC 100-10 MG/5ML SYRP 5ml po q6hr PRN Cough CHERATUSSIN AC 100-10 MG/5ML SYRP 956065 GUAIFENESIN-CODEINE Inacti ve TRIAMCINOLONE ACETONIDE 0.1 % CREA apply three times daily prn r beatrice TRIAMCINOLONE ACETONIDE 0.1 % CREA 1021723 TRIAMCINOLONE ACETONIDE Inactive AZITHROMYCIN 250 MG TABS 2 po qd x 1 day, then 1 po qd x 4 days AZITHROMYCIN 250 MG TABS 8198011 AZITHROMYCIN Inactiv e MEDROL (REYNA) 4 MG [...] days 20 13/03/08 AMOXICILLIN 500 MG CAP 895178 AMOXICILLIN Inactive AMOXICILLIN 500 MG CAP 1 tab by mouth 3 times daily x 10 days 20 14/04/28 AMOXICILLIN 500 MG CAP 610333 AMOXICILLIN Inactive Vital Signs Date Name Value [...] [phone] Encounters Code Encounter Date Provider Facility CPT-66804 Level 3 Est. Patient 13:06:43 CDT Ridge tam DO [facility] CPT-23619 Level 3 Est. Patient 10:03:07 CDT Perez Mora MD [facility] CPT-16748 Level 3 Est. Patient 19:50:35 [employer] Carlton rich MD [facility]-10706 Level 4 Est. 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 Patient 10:45:55 [employer]ARM LOAN INSPECT[employer] Hugo Restrepo MD [facility]-78674 Level 3 Est. Patient 14:12:49 CDT Griffin HERNANDEZ [facility]-65095 Level 3 Est. Patient 17:37:24 CDT Carlton rich MD [facility]-10602 Level 3 Est. Patient 16:51:54 CDT Carlton rich MD [facility]-54723 Level 3 Est. Patient 12:18:11 CDT Hugo Restrepo MD [facility]-59214 Level 3 Est. Patient 11:30:25 CDT Marcy crisostomo MD PhD [facility]-49630 Level 3 Est. Patient 12:00:47 [employer]ARM LOAN INS[employer]OR Carlton rich MD [facility]-55688 Level 3 Est. 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 Patient 16:23:24 [employer]ARM LOAN INSPECTOR Ridge tam DO [facility]-49736 Level 3 Est. Patient 12:34:12 CDT Carlton rich MD [facility] CPT-77124 Level 2 Est. Patient 15:43:33 CDT Robi armstrong MD -[id number] Level 4 Est. Patient 14:04:44 CDT Carlton rich MD [facility]-94617 Level 3 Est. Patient 05:47:59 CDT Ridge tam [facility]-79540 Level 3 Est. Patient 13:12:53 [employer]ARM LOAN INSPECTOR Carlton rich MD [facility] CPT-64210 Level 3 Est. Patient 14:26:53 CDT Hugo Restrepo MD [facility] Procedures Code Procedure Name Date Entry Date Standard Desc ription CPT-94669 Hip bilat min 2V w AP pelvis 13:16:20 CDT 2 CPT-23004 Pelvis only 13:07:33 CDT CPT-59939 Spec Collection and Handling Fee 11:25:12 C DT CPT-98028 Fluzone Quadrivalent Intramuscular Suspe nsion 0.5 ML 14:31:55 CDT CPT-65598 Abx/Therapy Injection 13:28:47 [employer] LO[employer] CPT-J2930 Solu Medrol 125 mg (Methyl Prednisolone Sodium Succinate) 12:00:47 [employer]ARM LOAN [employer] CPT-66743 Venipuncture Draw Fee 11:33:31 CDT CPT-51725 EKG Trac and Interp 11:21:09 CDT CPT-93435 Chest 2V Frontal and Lat 11:21:09 CDT 12/15 CPT-93988 Venipuncture Draw Fee 08:02:34 CDT CPT-64891 Chest 2V Frontal and Lat 05:47:59 CDT 06/05
--- OUTSIDE RECORDS SUMMARY | 2019-10-08 09:41 | XMS REPORT | Clinical Summary ---
Author Author Caitlin, Juliana Martinez Organization [employer] [facility] Address Unknown Phone Unavailable [...] sinusitis SEASONAL ALLERGIC RHINITIS 477.9 Active 1 Cralton Hu MD Allergic rhinitis, cause unspecified BRONCHITIS, [...] x 10 days 20 16/03/22 AMOXICILLIN-POT CLAVULANATE 51770134767 No Longer Active Elise Whitmore APRN Active TERBINAFINE HCL 250 MG ORAL TABLET 1 qDay for nail fungus 7 TERBINAFINE HCL 82045577769 No Longer Active Carlton Hu MD A ctive TUSSIONEX PENNKINETIC ER 10-8 MG/5ML ORAL SUSPENSION E XTENDED RELEASE 5ml po q12hr PRN Cough HYDROCOD POLST-CHLORPHEN POLST 63735960440 Active Carlton Hu MD Active PREDNISONE 20 MG ORAL TABLET 1 tab twice daily for 3 d ay, then one daily for three days PREDNISONE 83694283268 Active Carlton Hu MD Active AMOXICILLIN 500 MG ORAL CAPSULE 1 cap by mouth three times a day AMOXICILLIN 81290457568 No Longer Active Carlton Hu MD Active ELMIRON 100 MG ORAL CAPSULE 2 tablets in the am and 1 tablet at hs PENTOSAN POLYSULFATE SODIUM 52852645184 No Longer Active Robert Hu MD Active MUCINEX D 60-600 MG ORAL TABLET EXTENDED RELEASE 12 HOUR 1 t ab po q am PSEUDOEPHEDRINE-GUAIFENESIN 80709933999 No Longer Act nael Carlton Hu MD Active MUCINEX DM MAXIMUM STRENGTH 60-1200 MG ORAL TABLET EXT ENDED RELEASE 12 HOUR 1 tab po q am DEXTROMETHORPHAN-GUAIFENESIN 05862215717 No Longer Active Carlton Hu MD Active TUSSIONEX PENNKINETIC ER 10-8 MG/5ML ORAL SUSPENSION E XTENDED RELEASE 5ml po q12hr PRN Cough HYDROCOD POLST-CHLORPHEN POLST 5 9711114303 No Longer Active Carlton Hu MD Active POTASSIUM CHLORIDE ER 20 MEQ ORAL TABLET EXTENDED RELE ASE Take 1 by mouth 4 times daily for 7 days POTASSIUM CHLORIDE 42271544667 No Longer Active Carlton Hu MD Active ZITHROMAX 250 MG ORAL TABLET 2 po today, then 1 po q days 2-5 20 14/09/04 AZITHROMYCIN 13668610034 No Longer Active Elise Whitmore APRN Active TUSSIONEX PENNKINETIC ER 10-8 MG/5ML ORAL SUSPENSION E XTENDED RELEASE 5 ml twice a day as needed for cough HYDROCOD POLST-CHLORPH EN POLST 55938307807 No Longer Active Elise Whitmore APRN Active MONTELUKAST SODIUM 10 MG ORAL TABLET 1 po daily for Allergy MONTELUKAST SODIUM 91002417485 Active Carlton Hu MD Ac tive TUSSIONEX PENNKINETIC ER 10-8 MG/5ML ORAL SUSPENSION E XTENDED RELEASE 5ml po q12hr PRN Cough HYDROCOD POLST-CHLORPHEN POLST 5 0698564455 No Longer Active Hugo Restrepo MD Active GABAPENTIN 100 MG ORAL CAPSULE 1 po BID for fibromyalgia GABAPENTIN 93007052018 Active Carlton Hu MD Active LYRICA 100 MG ORAL CAPSULE Take 1 tab po BID for fibromyalgia 20 11/08/21 PREGABALIN 34101007907 No Longer Active Elise Whitmore APRN Active PROAIR HFA 108 (90 Base) MCG/ACT INHALATION AEROSOL SO LUTION 2 puffs four times a day as needed ALBUTEROL SULFATE 38596511236 Active Lyndsay Whitmore APRN Active PREDNISONE 20 MG ORAL TABLET 2 tabs daily for 3 days, 1 tab daily for 3 days, 1/2 tab daily for 2 days PREDNISONE 36636284823 No Longer Active Jillina Frakerriel LABORER MINE Active TUSSIONEX PENNKINETIC ER 10-8 MG/5ML ORAL SUSPENSION E XTENDED RELEASE 5 mL PO q 12 hrs PRN cough HYDROCOD POLST-CHLORPHEN POLST 928491 65444 No Longer Active Jillina Frazell LABORER MINE Active FLUTICASONE PROPIONATE 50 MCG/ACT NASAL SUSPENSION 2 s prays each nostril daily until bottle is empty FLUTICASONE PROPIONATE 261299201 99 No Longer Active Jillina Frazell LABORER MINE Active ASMANEX 60 METERED DOSES 220 MCG/INH INHALATION AEROSO L POWDER BREATH ACTIVATED 1 puff bid with rinse after MOMETASONE FUROATE 8012633 4102 No Longer Active Jillina Frazell LABORER MINE Active ZITHROMAX Z-REYNA 250 MG ORAL TABLET 2 today, then 1 daily for 4 d ays AZITHROMYCIN 80661566031 No Longer Active Elise Whitmore APRN Active TUSSIONEX PENNKINETIC ER 10-8 MG/5ML ORAL SUSPENSION E XTENDED RELEASE 5ml po q12hr PRN Cough HYDROCOD POLST-CHLORPHEN POLST 5 5968760705 No Longer Active Elise Whitmore APRN Active PREDNISONE 20 MG ORAL TABLET 2 tabs daily for 3 days, 1 tab daily for 3 days, 1/2 tab daily for 2 days PREDNISONE 65975841666 No Longer Active Diya De Guzman APRN Active AMOXICILLIN 500 MG ORAL CAPSULE 2 po BID x 10 days 201 09/29/08 AMOXICILLIN 13858210020 No Longer Active Jillina Gege RICEN Act nael SINGULAIR 10 MG ORAL TABLET 1 po qday for allergies 20 14/01/12 MONTELUKAST SODIUM 64513402925 No Longer Active Carlton Hu MD Active LEVAQUIN 500 MG ORAL TABLET 1 tablet by mouth daily 20 13/09/24 LEVOFLOXACIN 38167437934 No Longer Active Carlton Hu MD Acti ve FLUTICASONE PROPIONATE 50 MCG/ACT NASAL SUSPENSION 2 s prays each nostril daily for 2 weeks, then 1 spray each nostril daily. FLUTICASONE PROPIONATE 82889437787 Active Elise Whitmore APRN Active ZITHROMAX 250 MG ORAL TABLET 2 po today, then 1 po q days 2-5 20 13/08/10 AZITHROMYCIN 44494288517 No Longer Active Elise Whitmore APRN Active XANAX 0.5 MG ORAL TABLET one tablet by mouth daily prn anxiety 2015 ALPRAZOLAM 31751505347 Active Carlton Hu MD Active CYMBALTA 30 MG ORAL CAPSULE DELAYED RELEASE PARTICLES 1 cap by mouth daily for depression DULOXETINE HCL 68635638063 Active Carlton beltrán MD Active CEFDINIR 300 MG ORAL CAPSULE 1 po BID x 10 days CEFDINIR 96953987445 No Longer Active Carlton Hu MD Active ZOCOR 40 MG ORAL TABLET 1 tab by mouth daily SI MVASTATIN 64621402989 No Longer Active Carlton Hu MD Active CYCLOBENZAPRINE HCL 10 MG ORAL TABLET 1 tablet by mouth BID prn had pain CYCLOBENZAPRINE HCL 56243691894 No Longer Active Jayden Hu MD Active LEVOFLOXACIN 500 MG ORAL TABLET 1 tab PO daily x 10 days LEVOFLOXACIN 79289158550 No Longer Active Carlton Hu MD Acti ve PREDNISONE 20 MG ORAL TABLET 3 tab PO qd x 2d, 2 tab P O qd x 2d, 1 tab PO qd x 2d, 1/2 tab PO qd x 2d PREDNISONE 24076401527 No Lo nger Active Carlton Hu MD Active FLUTICASONE PROPIONATE 50 MCG/ACT NASAL SUSPENSION 1 t o 2 sprays each nostril daily FLUTICASONE PROPIONATE 48703685472 No Longer Ac tive Blaine HERNANDEZ Active CHERATUSSIN AC 100-10 MG/5ML ORAL SYRUP 1 tsp by mouth every 4 hours as needed for cough GUAIFENESIN-CODEINE 35101280340 No Longe r Active Blaine HERNANDEZ Active PROMETHAZINE-CODEINE 6.25-10 MG/5ML ORAL SYRUP 1 tsp b y mouth every 6 hours if needed for cough PROMETHAZINE-CODEINE 56758280119 No Longer Active Blaine HERNANDEZ Active CHERATUSSIN AC 100-10 MG/5ML ORAL SYRUP 1 tsp by mouth every 4 hours as needed for cough GUAIFENESIN-CODEINE 19711896766 No Longe r Active Blaine HERNANDEZ Active ZITHROMAX Z-REYNA 250 MG ORAL TABLET 2 today, then 1 daily for 4 d ays AZITHROMYCIN 55505961765 No Longer Active Columba Parrish Act nael ZITHROMAX 250 MG ORAL TABLET 2 po today, then 1 po q days 2-5 20 14/03/21 AZITHROMYCIN 00930723773 No Longer Active Carlton Hu MD Active ZITHROMAX Z-REYNA 250 MG ORAL TABLET 2 today, then 1 daily for 4 d ays AZITHROMYCIN 36331660147 No Longer Active Columba Parrish Act nael AUGMENTIN 875-125 MG ORAL TABLET 1 po BID x 10 days 20 13/01/20 AMOXICILLIN-POT CLAVULANATE 86896647383 No Longer Active Diya Daphnebrayan KHAN Active ZITHROMAX 250 MG ORAL TABLET 2 po today, then 1 po q days 2-5 12/08/14 AZITHROMYCIN 83845040844 No Longer Active Carlton Hu MD Active TRAMADOL HCL 50 MG ORAL TABLET 1 po tid with ES Tylenol TRAMADOL HCL 09431877820 Active Carlton Hu MD Active PREMARIN 0.625 MG ORAL TABLET TAKE 1 TAB BY MOUTH DAILY ESTROGENS CONJUGATED 60423877056 No Longer Active Ridge Bess DO A ctive CYMBALTA 30 MG ORAL CAPSULE DELAYED RELEASE PARTICLES 1 cap by mouth daily DULOXETINE HCL 80319710507 No Longer Active Ridge tam DO Active AMOXICILLIN 500 MG ORAL CAPSULE 1 tab by mouth 3 times daily x 10 days AMOXICILLIN 09786839351 No Longer Active Carlton bustamante MD Active AMOXICILLIN 500 MG ORAL CAPSULE 1 tab by mouth 3 times daily x 10 days AMOXICILLIN 43433674045 No Longer Active Carlton bustamante MD Active PROMETHAZINE-CODEINE 6.25-10 MG/5ML ORAL SYRUP 1 tsp b y mouth every 8 hours prn cough PROMETHAZINE-CODEINE 72031846044 No Longer Acti ve Carlton Hu MD Active MEDROL 4 MG ORAL TABLET THERAPY PACK 6 pills x 1 day, then 5 pills x 1 day then 4 pills x 1 day, then 3 pills x 1 day, then 2 pills x 1 day, then 1 pill x 1 day, then stop METHYLPREDNISOLONE 44344164577 No Long er Active Perez Mora MD Active AZITHROMYCIN 250 MG ORAL TABLET 2 po qd x 1 day, then 1 po q d x 4 days AZITHROMYCIN 64602910859 No Longer Active Perez Ambriz MD Active SYMBICORT 160-4.5 MCG/ACT INHALATION AEROSOL 2 puffs bid wit h rinse after BUDESONIDE-FORMOTEROL FUMARATE 10573312931 N o Longer Active Perez Mora MD Active LYRICA 75 MG ORAL CAPSULE TAKE 1 CAPSULE BY MOUTH TWICE DAILY PREGABALIN 30659764969 No Longer Active Carlton Hu MD Acti ve TOPAMAX 25 MG ORAL TABLET 1 qHS x 1 week, then 1 BID x 1 week, then 1 qAM and 2 qHS x 1 week, then 2 BID (migraine prevention) T OPIRAMATE 04673817645 No Longer Active Jerica FUENTES Active TOPAMAX 50 MG ORAL TABLET take 1 tab po BID for migraines. 07/02 TOPIRAMATE 42043278419 No Longer Active Jerica FUENTES Active TOPAMAX 100 MG ORAL TABLET Take 1 tablet po bid TO PIRAMATE 54565078243 Active Carlton Hu MD Active TRIAMCINOLONE ACETONIDE 0.1 % EXTERNAL CREAM apply three roger es daily prn rash TRIAMCINOLONE ACETONIDE 62280110151 No Longer Active Carlton Hu MD Active PAXIL 40 MG ORAL TABLET take 1 tab po qday for depression 0 PAROXETINE HCL 38721579674 Active Carlton Hu MD Active CHERATUSSIN AC 100-10 MG/5ML ORAL SYRUP 5ml po q6hr PRN Cough 20 13/04/14 GUAIFENESIN-CODEINE 11368577961 No Longer Active Carlton Hu MD Active MEDROL 4 MG ORAL TABLET THERAPY PACK 6 tabs on day 1, 5 tabs on day 2, 4 tabs on day 3, 3 tabs on day 4, 2 tabs on day 5, 1 tab on day 6 2013 METHYLPREDNISOLONE 23150742041 No Longer Active Perez Mora MD Active AZITHROMYCIN 250 MG ORAL TABLET 2 po qd x 1 day, then 1 po q d x 4 days AZITHROMYCIN 27501434767 No Longer Active Perez Ambriz MD Active PROPRANOLOL HCL 60 MG ORAL TABLET 1 PO Q D PROPRANOLOL HCL 88157965971 No Longer Active Perez Mora MD Activ e CHERATUSSIN AC 100-10 MG/5ML ORAL SYRUP take one tsp po Q 6h ours prn cough GUAIFENESIN-CODEINE 72196528080 No Longer Active Zia Mora MD Active AUGMENTIN 875-125 MG ORAL TABLET 1 tab by mouth twice daily with food AMOXICILLIN-POT CLAVULANATE 44336307584 No Longer Act nael Perez Mora MD Active CHERATUSSIN AC 100-10 MG/5ML ORAL SYRUP 1 tsp by mouth every 4 hours as needed for cough GUAIFENESIN-CODEINE 10093824410 No Longe r Active Hugo Restrepo MD Active ACETAMINOPHEN-CODEINE #3 300-30 MG ORAL TABLET 1 PO Q 4-6 HRS WI N PAIN ACETAMINOPHEN-CODEINE 63956988943 No Longer Active Hugo Restrepo MD Active LEVAQUIN 500 MG ORAL TABLET take one po QD LEVO FLOXACIN 13808978819 No Longer Active Griffin HERNANDEZ Active PREDNISONE 20 MG ORAL TABLET Take 3 tabs daily for 3 d ays, 2 tabs daily for 3 days, 1 tab daily for 3 days, 1/2 tab daily for 3 days 11/07 PREDNISONE 47304722343 No Longer Active Carlton Hu MD Acti ve AVELOX 400 MG ORAL TABLET 1 tab by mouth daily MOXIFLOXACIN HCL 10859616939 No Longer Active Carlton Hu MD Active CHERATUSSIN AC 100-10 MG/5ML ORAL SYRUP 1 tsp by mouth every 4 hours as needed for cough GUAIFENESIN-CODEINE 25461782495 No Longe r Active Hugo Restrepo MD Active AVELOX 400 MG ORAL TABLET 1 tab by mouth daily MOXIFLOXACIN HCL 71210233312 No Longer Active Marcy De La Rosa MD PhD Active TERBINAFINE HCL 250 MG ORAL TABLET 1 qDay T ERBINAFINE HCL 93933838347 No Longer Active Marcy De La Rosa MD PhD Active CHERATUSSIN AC 100-10 MG/5ML ORAL SYRUP 1 tsp by mouth every 4 hours as needed for cough GUAIFENESIN-CODEINE 05694088633 No Longe r Active Marcy De La Rosa MD PhD Active AVELOX 400 MG ORAL TABLET 1 tab by mouth daily MOXIFLOXACIN HCL 67724543755 No Longer Active Marcy De La Rosa MD PhD Active HYDROCODONE-ACETAMINOPHEN 5-325 MG ORAL TABLET 1 po q 6hr PRN co ugh HYDROCODONE-ACETAMINOPHEN 40312829722 No Longer Active Marcy De La Rosa MD PhD Active PREDNISONE 20 MG ORAL TABLET 2 tabs daily for 3 days, 1 tab daily for 3 days, 1/2 tab daily for 2 days PREDNISONE 94187467898 No Longer Active Carlton Hu MD Active CEFDINIR 300 MG ORAL CAPSULE by mouth twice a day 2011 CEFDINIR 06330865820 No Longer Active Carlton Hu MD Acti ve HYDROCHLOROTHIAZIDE 25 MG ORAL TABLET 1 TAB PO DAILY HYDROCHLOROTHIAZIDE 75825427248 Active Carlton Hu MD A ctive ACETAMINOPHEN-CODEINE #3 300-30 MG ORAL TABLET 1 tablet po q 4-6 hrs prn pain ACETAMINOPHEN-CODEINE 01565685452 No Longer Active Ridge Bess DO Active ZITHROMAX 250 MG ORAL TABLET 2 po today, then 1 po q days 2-5 20 03/07/07 AZITHROMYCIN 66664321816 No Longer Active Carlton Hu MD Active CHERATUSSIN AC 100-10 MG/5ML ORAL SYRUP take 1 tsp po q4-6 h ours prn cough GUAIFENESIN-CODEINE 52576324362 No Longer Active Jayden Hu MD Active ACETAMINOPHEN-CODEINE #3 300-30 MG ORAL TABLET 1 PO Q 4-6 HR PRN PAIN ACETAMINOPHEN-CODEINE 84455187877 No Longer Active Arnol Hu MD Active LORTAB 7.5-500 MG/15ML ORAL ELIXIR 7.5 ml po q 4 hour prn cough HYDROCODONE-ACETAMINOPHEN 51130848822 No Longer Active Carlton Hu MD Active PREDNISONE 20 MG ORAL TABLET 1 po bid 3 days, then 1 po q day 3 days PREDNISONE 12190655814 No Longer Active Carlton Hu MD Active CEFDINIR 300 MG ORAL CAPSULE by mouth twice a day 2011 CEFDINIR 89639575918 No Longer Active Carlton Hu MD Acti ve CEFDINIR 300 MG ORAL CAPSULE by mouth twice a day 2010 CEFDINIR 62271938042 No Longer Active Carlton Hu MD Acti ve CEFDINIR 300 MG ORAL CAPSULE by mouth twice a day 2010 CEFDINIR 13117733864 No Longer Active Carlton Hu MD Acti ve TESSALON PERLES 100 MG ORAL CAPSULE 1 tablet by mouth 3 times daily as needed for cough BENZONATATE 41447649006 No Longer Active Carlton Hu MD Active CEFDINIR 300 MG ORAL CAPSULE by mouth twice a day 2010 CEFDINIR 59110308239 No Longer Active Carlton Hu MD Acti ve ZITHROMAX Z-REYNA 250 MG ORAL TABLET 2 today, then 1 daily for 4 d ays AZITHROMYCIN 91375589650 No Longer Active Hugo Restrepo MD Active TESSALON PERLES 100 MG ORAL CAPSULE 1 tablet by mouth 3 times daily as needed for cough TESSALON PERLES 100 MG ORAL CAPSULE 14282 7 BENZONATATE Inactive PREDNISONE 20 MG ORAL TABLET 1 po bid 3 days, then 1 po q day 3 days PREDNISONE 20 MG ORAL TABLET 803472 PREDNISONE [place] ctive LORTAB 7.5-500 MG/15ML ORAL ELIXIR 7.5 [...] cough CHERATUSSIN AC 100-10 MG/5ML ORAL SYRUP 364896 GUAIFENESIN-CODEINE Inactive ACETAMINOPHEN-CODEINE #3 300-30 MG ORAL TABLET 1 tablet po q 4-6 hrs prn pain ACETAMINOPHEN-CODEINE #3 300-30 MG ORAL TABLET ACETAMINOPHEN-CODEINE Inactive HYDROCODONE-ACETAMINOPHEN 5-325 MG ORAL TABLET 1 po q 6hr PRN co ugh HYDROCODONE-ACETAMINOPHEN 5-325 MG ORAL TABLET 144140 HYDROCODONE-ACETAMINOPHEN Inactive AVELOX 400 MG ORAL TABLET 1 tab by mouth daily AVELOX 400 MG ORAL TABLET 465098 MOXIFLOXACIN HCL Inactive CHERATUSSIN AC 100-10 MG/5ML ORAL SYRUP 1 tsp by mouth every 4 hours as needed for cough CHERATUSSIN AC 100-10 MG/5ML ORAL SYRUP 9 15630 GUAIFENESIN-CODEINE Inactive TERBINAFINE HCL 250 MG ORAL TABLET 1 qDay 07/08 TERBINAFINE HCL 250 MG ORAL TABLET 442548 TERBINAFINE HCL Inactive CHERATUSSIN AC 100-10 MG/5ML ORAL SYRUP 1 tsp by mouth every 4 hours as needed for cough CHERATUSSIN AC 100-10 MG/5ML ORAL SYRUP 9 36293 GUAIFENESIN-CODEINE Inactive ACETAMINOPHEN-CODEINE #3 300-30 MG ORAL TABLET 1 PO Q 4-6 HRS WI N PAIN ACETAMINOPHEN-CODEINE #3 300-30 MG ORAL TABLET ACETAMINOPHEN-CODEINE Inactive CHERATUSSIN AC 100-10 MG/5ML ORAL SYRUP 1 tsp by mouth every 4 hours as needed for cough CHERATUSSIN AC 100-10 MG/5ML ORAL SYRUP 9 06582 GUAIFENESIN-CODEINE Inactive AUGMENTIN 875-125 MG ORAL TABLET 1 tab by mouth twice daily with food AUGMENTIN 875-125 MG ORAL TABLET 610943 AMOXICIL MADELINE-POT CLAVULANATE Inactive CHERATUSSIN AC 100-10 MG/5ML ORAL SYRUP take one tsp po Q 6h ours prn cough CHERATUSSIN AC 100-10 MG/5ML ORAL SYRUP 469263 GUAIFENESIN-CODEINE Inactive PROPRANOLOL HCL 60 MG ORAL TABLET 1 PO Q D PROPRANOLOL HCL 60 MG ORAL TABLET 357725 PROPRANOLOL HCL Inactive TOPAMAX 50 MG ORAL TABLET take 1 tab po BID for migraines. 07/02 TOPAMAX 50 MG ORAL TABLET 746207 TOPIRAMATE Inacti ve TOPAMAX 25 MG ORAL TABLET 1 qHS x 1 week, then 1 BID x 1 week, then 1 qAM and 2 qHS x 1 week, then 2 BID (migraine prevention) TOPAMAX 25 MG ORAL TABLET 150301 TOPIRAMATE Inactive LYRICA 75 MG ORAL CAPSULE TAKE 1 CAPSULE BY MOUTH TWICE DAILY LYRICA 75 MG ORAL CAPSULE PREGABALIN Inactive SYMBICORT 160-4.5 MCG/ACT INHALATION AEROSOL 2 puffs bid wit h rinse after SYMBICORT 160-4.5 MCG/ACT INHALATION AEROSOL BUDESONIDE- FORMOTEROL FUMARATE Inactive PROMETHAZINE-CODEINE 6.25-10 MG/5ML ORAL SYRUP 1 tsp b y mouth every 8 hours prn cough PROMETHAZINE-CODEINE 6.25-10 MG/ 5ML ORAL SYRUP 891867 PROMETHAZINE-CODEINE Inactive CYMBALTA 30 MG ORAL CAPSULE DELAYED RELEASE PARTICLES 1 cap by mouth daily CYMBALTA 30 MG ORAL CAPSULE DELAYED RELE ASE PARTICLES 717264 DULOXETINE HCL Inactive PREMARIN 0.625 MG ORAL TABLET TAKE 1 TAB BY MOUTH DAILY PREMARIN 0.625 MG ORAL TABLET ESTROGENS CONJUGATED Inactive CHERATUSSIN AC 100-10 MG/5ML ORAL SYRUP 1 tsp by mouth every 4 hours as needed for cough CHERATUSSIN AC 100-10 MG/5ML ORAL SYRUP 9 09958 GUAIFENESIN-CODEINE Inactive PROMETHAZINE-CODEINE 6.25-10 MG/5ML ORAL SYRUP 1 tsp b y mouth every 6 hours if needed for cough PROMETHAZINE-CODEINE 6.25-10 MG/5ML ORAL SYRUP 749793 PROMETHAZINE-CODEINE Inactive CHERATUSSIN AC 100-10 MG/5ML ORAL SYRUP 1 tsp by mouth every 4 hours as needed for cough CHERATUSSIN AC 100-10 MG/5ML ORAL SYRUP 9 19860 GUAIFENESIN-CODEINE Inactive FLUTICASONE PROPIONATE 50 MCG/ACT NASAL SUSPENSION 1 t o 2 sprays each nostril daily FLUTICASONE PROPIONATE 50 MCG/AC T NASAL SUSPENSION 1187694 FLUTICASONE PROPIONATE Inactive PREDNISONE 20 MG ORAL TABLET 3 tab PO qd x 2d, 2 tab P O qd x 2d, 1 tab PO qd x 2d, 1/2 tab PO qd x 2d PREDNISONE 20 MG ORAL TAB LET 382277 PREDNISONE Inactive LEVOFLOXACIN 500 MG ORAL TABLET 1 tab PO daily x 10 days LEVOFLOXACIN 500 MG ORAL TABLET 221957 LEVOFLOXACIN Inactive CYCLOBENZAPRINE HCL 10 MG ORAL TABLET 1 tablet by mouth BID prn had pain CYCLOBENZAPRINE HCL 10 MG ORAL TABLET 214394 CYCLOBENZAPRINE HCL Inactive ZOCOR 40 MG ORAL TABLET 1 tab by mouth daily 4 ZOCOR 40 MG ORAL TABLET 859158 SIMVASTATIN Inactive TUSSIONEX PENNKINETIC ER 10-8 MG/5ML [...] FLUTICASONE PROPIO EFE 50 MCG/ACT NASAL SUSPENSION 9157980 FLUTICASONE PROPIONATE Inactive TUSSIONEX PENNKINETIC ER 10-8 [...] RELEASE 5ml po q12hr PRN Cough TUSSIONEX ELISABETHNKINETI C ER 10-8 MG/5ML ORAL SUSPENSION EXTENDED [...] ays ZITHROMAX Z-REYNA 250 MG ORAL TABLET 918549 AZITHROMYCIN Inactive CEFDINIR 300 MG ORAL CAPSULE by mouth twice a day 2010 CEFDINIR 300 MG ORAL CAPSULE 689022 CEFDINIR Inactive CEFDINIR 300 MG ORAL CAPSULE by mouth twice a day 2010 CEFDINIR 300 MG ORAL CAPSULE 114560 CEFDINIR Inactive CEFDINIR 300 MG ORAL CAPSULE by mouth twice a day 2010 CEFDINIR 300 MG ORAL CAPSULE 934802 CEFDINIR Inactive CEFDINIR 300 MG ORAL CAPSULE by mouth twice a day 2011 CEFDINIR 300 MG ORAL CAPSULE 403695 CEFDINIR Inactive ZITHROMAX 250 MG ORAL TABLET 2 po today, then 1 po q days 2-5 03/07/07 ZITHROMAX 250 MG ORAL TABLET 759815 AZITHROMYCIN Gre[place] ctive CEFDINIR 300 MG ORAL CAPSULE by mouth twice a day 2011 CEFDINIR 300 MG ORAL CAPSULE 20020704 CEFDINIR Inactive PREDNISONE 20 MG ORAL TABLET 2 tabs daily for 3 days, 1 tab daily for 3 days, 1/2 tab daily for 2 days PREDNISONE 20 MG ORAL T ABLET 446936 PREDNISONE Inactive AVELOX 400 MG ORAL TABLET 1 tab by mouth daily AVELOX 400 MG ORAL TABLET 760442 MOXIFLOXACIN HCL Inactive AVELOX 400 MG ORAL TABLET 1 tab by mouth daily AVELOX 400 MG ORAL TABLET 274367 MOXIFLOXACIN HCL Inactive PREDNISONE 20 MG ORAL TABLET Take 3 tabs daily for 3 d ays, 2 tabs daily for 3 days, 1 tab daily for 3 days, 1/2 tab daily for 3 days 11/07 PREDNISONE 20 MG ORAL TABLET 386474 PREDNISONE Inactive LEVAQUIN 500 MG ORAL TABLET take one po QD LEVAQUIN 500 MG ORAL TABLET 665066 LEVOFLOXACIN Inactive AZITHROMYCIN 250 MG ORAL TABLET 2 po qd x 1 day, then 1 po q d x 4 days AZITHROMYCIN 250 MG ORAL TABLET 643967 AZITHROMY GIOVANNI Inactive MEDROL 4 MG ORAL TABLET THERAPY PACK 6 tabs on day 1, 5 tabs on day 2, 4 tabs on day 3, 3 tabs on day 4, 2 tabs on day 5, 1 tab on day 6 2013 MEDROL 4 MG ORAL TABLET THERAPY PACK 989013 METHYLPREDNISOLONE [place] ctive CHERATUSSIN AC 100-10 MG/5ML ORAL SYRUP 5ml po q6hr PRN Cough 20 13/04/14 CHERATUSSIN AC 100-10 MG/5ML ORAL SYRUP 937000 GUAIFENE SIN-CODEINE Inactive TRIAMCINOLONE ACETONIDE 0.1 % EXTERNAL CREAM apply three roger es daily prn rash TRIAMCINOLONE ACETONIDE 0.1 % EXTERNAL CREAM 101 4314 TRIAMCINOLONE ACETONIDE Inactive AZITHROMYCIN 250 MG ORAL TABLET 2 po qd x 1 day, then 1 po q d x 4 days AZITHROMYCIN 250 MG ORAL TABLET 847777 AZITHROMY GIOVANNI Inactive MEDROL 4 MG ORAL TABLET THERAPY PACK 6 pills x 1 day, then 5 pills x 1 day then 4 pills x 1 day, then 3 pills x 1 day, then 2 pills x 1 day, then 1 pill x 1 day, then stop MEDROL 4 MG ORAL TABLET THERAPY PACK 238472 METHYLPREDNISOLONE Inactive AMOXICILLIN 500 MG ORAL CAPSULE 1 tab by mouth 3 times daily x 10 days AMOXICILLIN 500 MG ORAL CAPSULE 120430 AMOXICILL IN Inactive AMOXICILLIN 500 MG ORAL CAPSULE 1 tab by mouth 3 times daily x 10 days AMOXICILLIN 500 MG ORAL CAPSULE 425148 AMOXICILL IN Inactive ZITHROMAX 250 MG ORAL TABLET 2 po today, then 1 po q days 2-5 20 12/08/14 ZITHROMAX 250 MG ORAL TABLET 553826 AZITHROMYCIN Greer ctive AUGMENTIN 875-125 MG ORAL TABLET 1 po BID x 10 days 20 13/01/20 AUGMENTIN 875-125 MG ORAL TABLET 070131 AMOXICILLIN-POT CLAVULANATE Inactive ZITHROMAX Z-REYNA 250 MG ORAL TABLET 2 today, then 1 daily for 4 d ays ZITHROMAX Z-REYNA 250 MG ORAL TABLET 181042 AZITHROMYCIN Inactive ZITHROMAX 250 MG ORAL TABLET 2 po today, then 1 po q days 2-5 20 14/03/21 ZITHROMAX 250 MG ORAL TABLET 105459 AZITHROMYCIN Greer ctive ZITHROMAX Z-REYNA 250 MG ORAL TABLET 2 today, then 1 daily for 4 d ays ZITHROMAX Z-REYNA 250 MG ORAL TABLET 946284 AZITHROMYCIN Inactive CEFDINIR 300 MG ORAL CAPSULE 1 po BID x 10 days 06/21 CEFDINIR 300 MG ORAL CAPSULE 20020704 CEFDINIR Inactive ZITHROMAX 250 MG ORAL TABLET 2 po today, then 1 po q days 2-5 20 13/08/10 ZITHROMAX 250 MG ORAL TABLET 916206 AZITHROMYCIN [place] ctive LEVAQUIN 500 MG ORAL TABLET 1 tablet by mouth daily 20 13/09/24 LEVAQUIN 500 MG ORAL TABLET 19971102 LEVOFLOXACIN Inactive SINGULAIR 10 MG ORAL TABLET 1 po qday for allergies 20 14/01/12 SINGULAIR 10 MG ORAL TABLET 20010504 MONTELUKAST SODIUM Inactive AMOXICILLIN 500 MG ORAL CAPSULE 2 po BID x 10 days 201 09/29/08 AMOXICILLIN 500 MG ORAL CAPSULE 696009 AMOXICILLIN Inactive PREDNISONE 20 MG ORAL TABLET 2 tabs daily for 3 days, 1 tab daily for 3 days, 1/2 tab daily for 2 days PREDNISONE 20 MG ORAL T ABLET 710782 PREDNISONE Inactive ZITHROMAX Z-REYNA 250 MG ORAL TABLET 2 today, then 1 daily for 4 d ays ZITHROMAX Z-REYNA 250 MG ORAL TABLET 637795 AZITHROMYCIN Inactive PREDNISONE 20 MG ORAL TABLET 2 tabs daily for 3 days, 1 tab daily for 3 days, 1/2 tab daily for 2 days PREDNISONE 20 MG ORAL T ABLET 334198 PREDNISONE Inactive ZITHROMAX 250 MG ORAL TABLET 2 po today, then 1 po q days 2-5 14/09/04 ZITHROMAX 250 MG ORAL TABLET 956792 AZITHROMYCIN Greer ctive AMOXICILLIN 500 MG ORAL CAPSULE 1 cap by mouth three times a day AMOXICILLIN 500 MG ORAL CAPSULE 497191 AMOXICILLIN Inactive TERBINAFINE HCL 250 MG ORAL TABLET 1 qDay for nail fungus 7 TERBINAFINE HCL 250 MG ORAL TABLET 301995 TERBINAFINE HCL Inact nael AUGMENTIN 875-125 MG ORAL TABLET 1 po BID x 10 days 20 16/03/22 AUGMENTIN 875-125 MG ORAL TABLET 426612 AMOXICILLIN-POT CLAVULANATE Inactive Vital Signs Date Name [...] - Chem istry sodium, serum 132 mmol/L 274-354 7816/07/12 potassium, serum 2.7 mmol/L 3.5-5.2 chloride, serum 93 mmol/L 98-107 carbon dioxide, venous blood 30.8 mmol/L 21.0-32 .0 blood glucose 107 mg/dL 65-110 calcium, serum 9.3 mg/dL 8.5-10.1 urea nitrogen, blood 12 mg/dL 7-18 creatinine, serum 1.00 mg/dL 0.60-1.30 sodium, serum 142 mmol/L 456-688 4544/07/17 potassium, serum 4.2 mmol/L 3.5-5.2 chloride, serum 106 mmol/L 98-107 carbon dioxide, venous blood 29.9 mmol/L 21.0-32 .0 blood glucose 108 mg/dL 65-110 calcium, serum 9.1 mg/dL 8.5-10.1 urea nitrogen, blood 11 mg/dL 7-18 creatinine, serum 0.81 mg/dL 0.60-1.30 Lab Report: Rapid Strep - Lab Microbial identification kit, rapid strep method Negative Negative Encounters Code Encounter Date Provider Facility CPT-26021 Level 3 Est. Patient 10:26:00 TRAY SETTER Italo KHAN [facility] CPT-36326 Level 3 Est. Patient 13:35:41 TRAY SETTER Carlton rich MD [facility] CPT-36168 Level 3 Est. Patient 10:03:52 TRAY SETTER Carlton rich MD [facility] CPT-97191 Level 3 Est. Patient 12:17:50 CDT Hugo Restrepo MD [facility] CPT-17827 Level 3 Est. Patient 13:42:38 CDT Elise And chelly [facility] CPT-41735 Level 3 Est. Patient 13:23:51 CDT Diya cobian [facility] CPT-82448 Level 3 Est. Patient 14:22:19 TRAY SETTER Astridgreer Mariana cobian [facility] CPT-25260 Level 3 Est. Patient 10:11:46 CDT Carlton rich MD [facility] CPT-63792 Level 3 Est. Patient 17:29:43 CDT Elise And asaelon [facility] CPT-33714 Level 3 Est. Patient 11:58:06 [facility] Level 4 Est. Patient 14:36:51 CDT Carlton rich MD [facility]-11845 Level 3 Est. Patient 18:16:00 TRAY SETTER Blaine HERNANDEZ [facility] CPT-19908 Level 3 Est. Patient 09:45:49 TRAY SETTER Carlton rich MD [facility] CPT-73269 Level 3 Est. Patient 13:19:20 CDT Carlton rich MD [facility] CPT-94681 Level 3 Est. Patient 13:06:43 CDT Ridge tam DO [facility] CPT-16745 Level 3 Est. Patient 10:03:07 CDT Perez Mora MD [facility] CPT-76604 Level 3 Est. Patient 19:50:35 TRAY SETTER Carlton rich MD [facility] CPT-27993 Level 4 Est. Patient 18:05:01 TRAY SETTER Carlton rich MD [facility] CPT-87360 Level 3 Est. Patient 10:45:55 TRAY SETTER Hugo Restrepo MD [facility] CPT-84085 Level 3 Est. Patient 14:12:49 CDT Griffin HERNANDEZ [facility] CPT-09626 Level 3 Est. Patient 17:37:24 CDT Carlton rich MD [facility] CPT-43184 Level 3 Est. Patient 16:51:54 CDT Carlton rich MD [facility] CPT-37365 Level 3 Est. Patient 12:18:11 CDT Hugo Restrepo MD [facility] CPT-75029 Level 3 Est. Patient 11:30:25 CDT Marcy crisostomo MD PhD [facility] CPT-13997 Level 3 Est. Patient 12:00:47 TRAY SETTER Carlton rich MD [facility] CPT-84484 Level 3 Est. Patient 16:31:06 TRAY SETTER Carlton rich MD [facility] CPT-04245 Level 3 Est. Patient 16:23:24 TRAY SETTER Ridge tam DO [facility] CPT-29510 Level 3 Est. Patient 12:34:12 CDT Carlton rich MD [facility] CPT-23035 Level 2 Est. Patient 15:43:33 CDT Robi armstrong MD [facility] CPT-69171 Level 4 Est. Patient 14:04:44 CDT Carlton rich MD [facility] CPT-84234 Level 3 Est. Patient 05:47:59 CDT Ridge tam [facility] CPT-72173 Level 3 Est. Patient 13:12:53 TRAY SETTER Carlton rich MD [facility] CPT-52437 Level 3 Est. Patient 14:26:53 CDT Hugo [...] CPT-J1100 Decadron 6mg (Dexamethasone) 14:32:13 CDT 2 CPT-25054 Hip bilat min 2V w AP pelvis 13:16:20 CDT 2 CPT-35801 Pelvis only 13:07:33 CDT CPT-60743 Spec Collection and Handling Fee 11:25:12 C DT CPT-88704 Fluzone Quadrivalent Intramuscular Suspe nsion 0.5 ML 14:31:55 CDT CPT-07378 Abx/Therapy Injection 13:28:47 TRAY SETTER CPT-J2930 Solu Medrol 125 mg (Methyl Prednisolone Sodium Succinate) 12:00:47 TRAY SETTER CPT-61682 Venipuncture Draw Fee 11:33:31 CDT CPT-11936 EKG Trac and Interp 11:21:09 CDT CPT-21174 Chest 2V Frontal and Lat 11:21:09 CDT 12/15 CPT-55397 Venipuncture Draw Fee 08:02:34 CDT CPT-79782 Chest 2V Frontal and Lat 05:47:59 CDT 06/05
--- OUTSIDE RECORDS SUMMARY | 2019-10-08 09:42 | XMS REPORT | Clinical Summary ---
Author Author Caitlin, Juliana Martinez Organization [facility] Address Unknown Phone Unavailable Allergies, [...] PRN Cough 20 14/09/04 HYDROCOD POLST-CHLORPHEN POLST [id number] Active Elise Whitmore APRN Active ZITHROMAX 250 MG TAB 2 po today, then 1 po q days 2-5 AZITHROMYCIN 48501852008 No Longer Active Elise Whitmore APRN Acti ve TUSSIONEX PENNKINETIC ER 10-8 MG/5ML LQCR 5 ml twice a day a s needed for cough HYDROCOD POLST-CHLORPHEN POLST 07137635526 N o Longer Active Elise Whitmore APRN Active MONTELUKAST SODIUM 10 MG ORAL TABS 1 po daily for Allergy 6 MONTELUKAST SODIUM 35998934339 Active ALFREDO Holly Act nael TUSSIONEX PENNKINETIC ER 10-8 MG/5ML LQCR 5ml po q12hr PRN Cough HYDROCOD POLST-CHLORPHEN POLST 58917489480 No Longer Active Hugo Restrepo MD Active GABAPENTIN 100 MG CAPS 1 po BID for fibromyalgia GABAPENTIN 86549413168 Active Elise Whitmore APRN Active LYRICA 100 MG CAPS Take 1 tab po BID for fibromyalgia PREGABALIN 86127951888 No Longer Active Elise Whitmore APRN Acti ve PROAIR HFA 108 (90 BASE) MCG/ACT AERS 2 puffs four times a d ay as needed ALBUTEROL SULFATE 10475110628 Active Elise Whitmore APRN Active MUCINEX DM MAXIMUM STRENGTH 60-1200 MG [id number] 1 tab po q am 2016 DEXTROMETHORPHAN-GUAIFENESIN 56907801183 Active Jillina Cesarl KINESIOLOGIST Active PREDNISONE 20 MG TAB 2 tabs daily for 3 days, 1 t ab daily for 3 days, 1/2 tab daily for 2 days PREDNISONE 76192203444 No Longer Active Jillina Frakerriel KINESIOLOGIST Active TUSSIONEX PENNKINETIC ER 10-8 MG/5ML ORAL LQCR 5 mL PO q 12 hrs PRN cough HYDROCOD POLST-CHLORPHEN POLST 22048221761 No Longer Active Jillina Frazell KINESIOLOGIST Active FLUTICASONE PROPIONATE 50 MCG/ACT SUSP 2 sprays each n ostril daily until bottle is empty FLUTICASONE PROPIONATE 18509328501 No Longer Ac tive Jillina Frazell KINESIOLOGIST Active ASMANEX 60 METERED DOSES 220 MCG/INH AEPB 1 puff bid with ri nse after MOMETASONE FUROATE 87839240777 No Longer Active Jillina Darlin ell KINESIOLOGIST Active ZITHROMAX Z-REYNA 250 MG TABS 2 today, then 1 daily for 4 days 201 09/29/14 AZITHROMYCIN 11889995433 No Longer Active Elise Whitmore APRN Active TUSSIONEX PENNKINETIC ER 10-8 MG/5ML LQCR 5ml po q12hr PRN Cough HYDROCOD POLST-CHLORPHEN POLST 24410794723 No Longer Active Elise Whitmore KINESIOLOGIST Active MUCINEX D 60-600 MG [id number] 1 tab po q am PSEUDOEPHEDRINE-GUAIFENESIN 87094955975 Active Jillina Frazell KINESIOLOGIST Active PREDNISONE 20 MG TAB 2 tabs daily for 3 days, 1 t ab daily for 3 days, 1/2 tab daily for 2 days PREDNISONE 69051096952 No Longer Active Jillina Frazell KINESIOLOGIST Active AMOXICILLIN 500 MG CAPS 2 po BID x 10 days AMOX ICILLIN 10956117404 No Longer Active Jillina Frazell KINESIOLOGIST Active SINGULAIR 10 MG TABS 1 po qday for allergies 2 MONTELUKAST SODIUM 80749261804 No Longer Active Carlton Hu MD Acti ve LEVAQUIN 500 MG TAB 1 tablet by mouth daily LEV OFLOXACIN 95928327032 No Longer Active Carlton Hu MD Active FLUTICASONE PROPIONATE 50 MCG/ACT SUSP 2 sprays each n ostril daily for 2 weeks, then 1 spray each nostril daily. FLUTICASONE PRO PIONATE 13139302584 Active Elise Whitmore APRN Active ZITHROMAX 250 MG TAB 2 po today, then 1 po q days 2-5 AZITHROMYCIN 39997737117 No Longer Active Elise Whitmore APRN Acti ve XANAX 0.5 MG TABS one tablet by mouth daily prn anxiety ALPRAZOLAM 18811100188 Active Elise Whitmore APRN Active CYMBALTA 30 MG CPEP 1 cap by mouth daily for depression DULOXETINE HCL 89222434633 Active Carlton Hu MD Active CEFDINIR 300 MG CAPS 1 po BID x 10 days CEFDINI R 60121583551 No Longer Active Carlton Hu MD Active ZOCOR 40 MG TAB 1 tab by mouth daily SIMVASTATI N 48214407302 No Longer Active Carlton Hu MD Active CYCLOBENZAPRINE HCL 10 MG TABS 1 tablet by mouth BID prn had cherelle n CYCLOBENZAPRINE HCL 04563811263 No Longer Active Carlton Hu MD Active LEVOFLOXACIN 500 MG ORAL TABS 1 tab PO daily x 10 days LEVOFLOXACIN 68755307423 No Longer Active Carlton Hu MD Acti ve PREDNISONE 20 MG ORAL TABS 3 tab PO qd x 2d, 2 tab PO qd x 2d, 1 tab PO qd x 2d, 1/2 tab PO qd x 2d PREDNISONE 71998518799 No Longer Active Carlton Hu MD Active FLUTICASONE PROPIONATE 50 MCG/ACT SUSP 1 to 2 sprays each no stril daily FLUTICASONE PROPIONATE 70493759897 No Longer Active T jaz HERNANDEZ Active CHERATUSSIN AC 100-10 MG/5ML SYRP 1 tsp by mouth every 4 hours as needed for cough GUAIFENESIN-CODEINE 06505032676 No Longer Activ e Blaine HERNANDEZ Active PROMETHAZINE-CODEINE 6.25-10 MG/5ML SYRP 1 tsp by mout h every 6 hours if needed for cough PROMETHAZINE-CODEINE 47241350193 No Long er Active Blaine HERNANDEZ Active CHERATUSSIN AC 100-10 MG/5ML SYRP 1 tsp by mouth every 4 hours as needed for cough GUAIFENESIN-CODEINE 47805931429 No Longer Activ e Blaine HERNANDEZ Active ZITHROMAX Z-REYNA 250 MG TABS 2 today, then 1 daily for 4 days 201 08/30/03 AZITHROMYCIN 79401061399 No Longer Active Columba Raida Act nael ZITHROMAX 250 MG TAB 2 po today, then 1 po q days 2-5 AZITHROMYCIN 00731736812 No Longer Active Carlton Hu MD Acti ve ZITHROMAX Z-REYNA 250 MG TABS 2 today, then 1 daily for 4 days 201 08/07/20 AZITHROMYCIN 96094141798 No Longer Active Columba Raida Act nael AUGMENTIN 875-125 MG TAB 1 po BID x 10 days AMOXICILLIN- POT CLAVULANATE 55416090284 No Longer Active Jillina Frazell KINESIOLOGIST Active ZITHROMAX 250 MG TAB 2 po today, then 1 po q days 2-5 AZITHROMYCIN 77500899136 No Longer Active Carlton Hu MD Acti ve TRAMADOL HCL 50 MG TABS 1 po tid with ES Tylenol TRAMADOL HCL 15751754662 Active Carlton Hu MD Active PREMARIN 0.625 MG TABS TAKE 1 TAB BY MOUTH DAILY 07/25 ESTROGENS CONJUGATED 01055377189 No Longer Active Ridge Bess DO Active CYMBALTA 30 MG CPEP 1 cap by mouth daily DULOXE SNEHA HCL 07151645985 No Longer Active Rideg Bess DO Active AMOXICILLIN 500 MG CAP 1 tab by mouth 3 times daily x 10 days 20 14/04/28 AMOXICILLIN 36192823423 No Longer Active Carlton Hu MD Active AMOXICILLIN 500 MG CAP 1 tab by mouth 3 times daily x 10 days 20 13/03/08 AMOXICILLIN 66705270837 No Longer Active Carlton Hu MD Active PROMETHAZINE-CODEINE 6.25-10 MG/5ML SYRP 1 tsp by mouth ever y 8 hours prn cough PROMETHAZINE-CODEINE 64205340372 No Longer Active Robert Hu MD Active MEDROL (REYNA) 4 MG TABS 6 pills x 1 day, then 5 pill s x 1 day then 4 pills x 1 day, then 3 pills x 1 day, then 2 pills x 1 day, then 1 pill x 1 day, then stop METHYLPREDNISOLONE 61777448329 No Longer Active Parris Mora MD Active AZITHROMYCIN 250 MG TABS 2 po qd x 1 day, then 1 po qd x 4 days AZITHROMYCIN 34110810292 No Longer Active Perez Mora MD Active SYMBICORT 160-4.5 MCG/ACT AERO 2 puffs bid with rinse after 2011 BUDESONIDE-FORMOTEROL FUMARATE 00952962078 No Longer Active Perez Mora MD Active LYRICA 75 MG CAPS TAKE 1 CAPSULE BY MOUTH TWICE DAILY 2013 PREGABALIN 91816542796 No Longer Active Carlton Hu MD Active TOPAMAX 25 MG TABS 1 qHS x 1 week, then 1 BID x 1 week, then 1 qAM and 2 qHS x 1 week, then 2 BID (migraine prevention) TOPIRAMAT E 90259908013 No Longer Active Jerica FUENTES Active TOPAMAX 50 MG TABS take 1 tab po BID for migraines. 12/07/10 TOPIRAMATE 90751763047 No Longer Active Jerica FUETNES Ac tive TOPAMAX 100 MG TABS Take 1 tablet po bid TOPIRAMATE 4999 3894967 Active Elise Whitmore APRN Active TRIAMCINOLONE ACETONIDE 0.1 % CREA apply three times daily prn r beatrice TRIAMCINOLONE ACETONIDE 45320593761 No Longer Active Carlton Hu MD Active PAXIL 40 MG TAB take 1 tab po qday for depression PAROXETINE HCL 76710665253 Active Elise Whitmore APRN Active CHERATUSSIN AC 100-10 MG/5ML SYRP 5ml po q6hr PRN Cough GUAIFENESIN-CODEINE 50939871042 No Longer Active Carlton Hu MD Active MEDROL (REYNA) 4 MG TABS 6 tabs on day 1, 5 tabs on d ay 2, 4 tabs on day 3, 3 tabs on day 4, 2 tabs on day 5, 1 tab on day 6 METHYLPREDNISOLONE 96123768330 No Longer Active Perez Mora MD Active AZITHROMYCIN 250 MG TABS 2 po qd x 1 day, then 1 po qd x 4 days AZITHROMYCIN 80782686504 No Longer Active Perez Mora MD Active PROPRANOLOL HCL 60 MG TABS 1 PO Q D PROPRANOL OL HCL 16446254519 No Longer Active Perez Mora MD Active CHERATUSSIN AC 100-10 MG/5ML SYRP take one tsp po Q 6hours prn c ough GUAIFENESIN-CODEINE 41437649935 No Longer Active Perez Means Active AUGMENTIN 875-125 MG TAB 1 tab by mouth twice daily with food 12/03/31 AMOXICILLIN-POT CLAVULANATE 78925278301 No Longer Active Chanel Mora MD Active CHERATUSSIN AC 100-10 MG/5ML SYRP 1 tsp by mouth every 4 hours as needed for cough GUAIFENESIN-CODEINE 26946364734 No Longer Activ e Hugo Restrepo MD Active ACETAMINOPHEN-CODEINE #3 300-30 MG TABS 1 PO Q 4-6 HRS PRN PAIN ACETAMINOPHEN-CODEINE 83816666567 No Longer Active Hugo Restrepo MD Active LEVAQUIN 500 MG TABS take one po QD LEVOFLOXACI N 50981420405 No Longer Active Griffin HERNANDEZ Active PREDNISONE 20 MG TAB Take 3 tabs daily for 3 days , 2 tabs daily for 3 days, 1 tab daily for 3 days, 1/2 tab daily for 3 days P REDNISONE 63067888277 No Longer Active Carlton uH MD Active AVELOX 400 MG TABS 1 tab by mouth daily MOXIFLO XACIN HCL 93641691460 No Longer Active Carlton Hu MD Active CHERATUSSIN AC 100-10 MG/5ML SYRP 1 tsp by mouth every 4 hours as needed for cough GUAIFENESIN-CODEINE 27930359429 No Longer Activ e Hugo Restrepo MD Active AVELOX 400 MG TABS 1 tab by mouth daily MOXIFLO XACIN HCL 02152647541 No Longer Active Marcy De La Rosa MD PhD Active TERBINAFINE HCL 250 MG TABS 1 qDay TERBINAF INE HCL 79185081270 No Longer Active Marcy De La Rosa MD PhD Active CHERATUSSIN AC 100-10 MG/5ML SYRP 1 tsp by mouth every 4 hours as needed for cough GUAIFENESIN-CODEINE 83396416452 No Longer Activ e Marcy De La Rosa MD PhD Active AVELOX 400 MG TABS 1 tab by mouth daily MOXIFLO XACIN HCL 60390083212 No Longer Active Marcy De La Rosa MD PhD Active HYDROCODONE-ACETAMINOPHEN 5-325 MG TABS 1 po q 6hr PRN cough 201 05/09/16 HYDROCODONE-ACETAMINOPHEN 08757457661 No Longer Active Marcy De La Rosa MD PhD Active PREDNISONE 20 MG TAB 2 tabs daily for 3 days, 1 t ab daily for 3 days, 1/2 tab daily for 2 days PREDNISONE 92541432168 No Longer Active Carlton Hu MD Active CEFDINIR 300 MG CAPS by mouth twice a day CEFDI ODILIA 08121187076 No Longer Active Carlton Hu MD Active HYDROCHLOROTHIAZIDE 25 MG TABS 1 TAB PO DAILY H YDROCHLOROTHIAZIDE 00093478758 Active Carlton Hu MD Active ACETAMINOPHEN-CODEINE #3 300-30 MG TABS 1 tablet po q 4-6hrs prn pain ACETAMINOPHEN-CODEINE 43317282380 No Longer Active Ridge Bess DO Active ZITHROMAX 250 MG TAB 2 po today, then 1 po q days 2-5 AZITHROMYCIN 43522125878 No Longer Active Carlton Hu MD Acti ve CHERATUSSIN AC 100-10 MG/5ML SYRP take 1 tsp po q4-6 hours prn c ough GUAIFENESIN-CODEINE 95609406115 No Longer Active Carlton Hu MD Active ACETAMINOPHEN-CODEINE #3 300-30 MG TABS 1 PO Q 4-6 HR PRN PAIN 2 ACETAMINOPHEN-CODEINE 12817205089 No Longer Active Carlton rich MD Active LORTAB 7.5-500 MG/15ML ELIX 7.5 ml po q 4 hour prn cough HYDROCODONE-ACETAMINOPHEN 65315569632 No Longer Active Carlton Hu MD Active PREDNISONE 20 MG TAB 1 po bid 3 days, then 1 po q day 3 days 201 05/03/07 PREDNISONE 73454854050 No Longer Active Carlton Hu MD Active ELMIRON 100 MG CAPS 2 tablets in the am and 1 tablet at hs PENTOSAN POLYSULFATE SODIUM 54508700049 Active Carlton Hu MD Ac tive CEFDINIR 300 MG CAPS by mouth twice a day CEFDI ODILIA 15258616173 No Longer Active Carlton Hu MD Active CEFDINIR 300 MG CAPS by mouth twice a day CEFDI ODILIA 88161465259 No Longer Active Carlton Hu MD Active CEFDINIR 300 MG CAPS by mouth twice a day CEFDI ODILIA 13032355234 No Longer Active Carlton Hu MD Active TESSALON PERLES 100 MG CAP 1 tablet by mouth 3 times daily a s needed for cough BENZONATATE 08731966208 No Longer Active Carlton bustamante MD Active CEFDINIR 300 MG CAPS by mouth twice a day CEFDI ODILIA 25651618037 No Longer Active Carlton Hu MD Active ZITHROMAX Z-REYNA 250 MG TABS 2 today, then 1 daily for 4 days 201 04/09/17 AZITHROMYCIN 92621231109 No Longer Active Hugo Restrepo MD Active TESSALON PERLES 100 MG CAP 1 tablet by mouth 3 times daily a s needed for cough TESSALON PERLES 100 MG CAP 051212 BENZONATATE I nactive PREDNISONE 20 MG TAB 1 po bid 3 days, then 1 po q day 3 days 201 05/03/07 PREDNISONE 20 MG TAB 874957 PREDNISONE Inactive LORTAB 7.5-500 MG/15ML ELIX 7.5 ml po q 4 hour prn cough LORTAB 7.5-500 MG/15ML ELIX HYDROCODONE-ACETAMINOPHEN Inacti ve ACETAMINOPHEN-CODEINE #3 300-30 MG TABS 1 PO Q 4-6 HR PRN PAIN 2 ACETAMINOPHEN-CODEINE #3 300-30 MG TABS ACETAMIN OPHEN-CODEINE Inactive CHERATUSSIN AC 100-10 MG/5ML SYRP take 1 tsp po q4-6 hours prn c ough CHERATUSSIN AC 100-10 MG/5ML SYRP 702573 GUAIFENESIN-CO DEINE Inactive ACETAMINOPHEN-CODEINE #3 300-30 MG TABS 1 tablet po q 4-6hrs prn pain ACETAMINOPHEN-CODEINE #3 300-30 MG TABS ACETAMIN OPHEN-CODEINE Inactive HYDROCODONE-ACETAMINOPHEN 5-325 MG TABS 1 po q 6hr PRN cough 201 05/09/16 HYDROCODONE-ACETAMINOPHEN 5-325 MG TABS 829574 HYDROCODONE-ACETAMINOPHEN Inactive AVELOX 400 MG TABS 1 tab by mouth daily A VELOX 400 MG TABS 312639 MOXIFLOXACIN HCL Inactive CHERATUSSIN AC 100-10 MG/5ML SYRP 1 tsp by mouth every 4 hours as needed for cough CHERATUSSIN AC 100-10 MG/5ML SYRP 345009 GUAIFENESIN-CODEINE Inactive TERBINAFINE HCL 250 MG TABS 1 qDay TERBINAFINE HCL 250 MG TABS 825945 TERBINAFINE HCL Inactive CHERATUSSIN AC 100-10 MG/5ML SYRP 1 tsp by mouth every 4 hours as needed for cough CHERATUSSIN AC 100-10 MG/5ML SYRP 245584 GUAIFENESIN-CODEINE Inactive ACETAMINOPHEN-CODEINE #3 300-30 MG TABS 1 PO Q 4-6 HRS PRN PAIN ACETAMINOPHEN-CODEINE #3 300-30 MG TABS ACETAMINOPHEN-CODEIN E Inactive CHERATUSSIN AC 100-10 MG/5ML SYRP 1 tsp by mouth every 4 hours as needed for cough CHERATUSSIN AC 100-10 MG/5ML SYRP 308597 GUAIFENESIN-CODEINE Inactive AUGMENTIN 875-125 MG TAB 1 tab by mouth twice daily with food 20 12/03/31 AUGMENTIN 875-125 MG TAB 694198 AMOXICILLIN-POT CLAVULA EFE Inactive CHERATUSSIN AC 100-10 MG/5ML SYRP take one tsp po Q 6hours prn c ough CHERATUSSIN AC 100-10 MG/5ML SYRP 361350 GUAIFENESIN-CO DEINE Inactive PROPRANOLOL HCL 60 MG TABS 1 PO Q D P ROPRANOLOL HCL 60 MG TABS 216546 PROPRANOLOL HCL Inactive TOPAMAX 50 MG TABS take 1 tab po BID for migraines. 12/07/10 TOPAMAX 50 MG TABS 042815 TOPIRAMATE Inactive TOPAMAX 25 MG TABS 1 qHS x 1 week, then 1 BID x 1 week, then 1 qAM and 2 qHS x 1 week, then 2 BID (migraine prevention) TOPAMAX 2 5 MG TABS 768611 TOPIRAMATE Inactive LYRICA 75 MG CAPS TAKE 1 CAPSULE BY MOUTH TWICE DAILY LYRICA 75 MG CAPS PREGABALIN Inactive SYMBICORT 160-4.5 MCG/ACT AERO 2 puffs bid with rinse after 2011 SYMBICORT 160-4.5 MCG/ACT AERO BUDESONIDE-FORMOT SÁNCHEZ FUMARATE Inactive PROMETHAZINE-CODEINE 6.25-10 MG/5ML SYRP 1 tsp by mouth ever y 8 hours prn cough PROMETHAZINE-CODEINE 6.25-10 MG/5ML SYRP 008699 PROMETHAZINE-CODEINE Inactive CYMBALTA 30 MG CPEP 1 cap by mouth daily CYMBALTA 30 MG CPEP 374155 DULOXETINE HCL Inactive PREMARIN 0.625 MG TABS TAKE 1 TAB BY MOUTH DAILY 07/25 PREMARIN 0.625 MG TABS ESTROGENS CONJUGATED Inactive CHERATUSSIN AC 100-10 MG/5ML SYRP 1 tsp by mouth every 4 hours as needed for cough CHERATUSSIN AC 100-10 MG/5ML SYRP 070275 GUAIFENESIN-CODEINE Inactive PROMETHAZINE-CODEINE 6.25-10 MG/5ML SYRP 1 tsp by mout h every 6 hours if needed for cough PROMETHAZINE-CODEINE 6.25-10 MG/5ML SYRP 830268 PROMETHAZINE-CODEINE Inactive CHERATUSSIN AC 100-10 MG/5ML SYRP 1 tsp by mouth every 4 hours as needed for cough CHERATUSSIN AC 100-10 MG/5ML SYRP 398860 GUAIFENESIN-CODEINE Inactive FLUTICASONE PROPIONATE 50 MCG/ACT SUSP 1 to 2 sprays each no stril daily FLUTICASONE PROPIONATE 50 MCG/ACT SUSP 7815969 FLUTICASONE PROPIONATE Inactive PREDNISONE 20 MG ORAL TABS 3 tab PO qd x 2d, 2 tab PO qd x 2d, 1 tab PO qd x 2d, 1/2 tab PO qd x 2d PREDNISONE 20 MG ORAL TABS 264267 PREDNISONE Inactive LEVOFLOXACIN 500 MG ORAL TABS 1 tab PO daily x 10 days LEVOFLOXACIN 500 MG ORAL TABS 556793 LEVOFLOXACIN Inactive CYCLOBENZAPRINE HCL 10 MG TABS 1 tablet by mouth BID prn had cherelle n CYCLOBENZAPRINE HCL 10 MG TABS 965509 CYCLOBENZAPRINE H CL Inactive ZOCOR 40 MG TAB 1 tab by mouth daily ZOCOR 40 M G TAB 980212 SIMVASTATIN Inactive TUSSIONEX PENNKINETIC ER 10-8 MG/5ML [...] empty FLUTICASONE PROPIONATE 50 MCG/ACT SUSP 17 25322 FLUTICASONE PROPIONATE Inactive TUSSIONEX PENNKINETIC ER 10-8 [...] 201 04/09/17 ZITHROMAX Z-REYNA 250 MG TABS 4317184 AZITHROMYCIN Inac tive CEFDINIR 300 MG CAPS [...] q days 2-5 ZITHROMAX 250 MG TAB 6677344 AZITHROMYCIN Inactive CEFDINIR 300 MG CAPS by mouth twice a day CEFDINIR 300 MG CAPS 20020704 CEFDINIR Inactive PREDNISONE 20 MG TAB 2 tabs daily for 3 days, 1 t ab daily for 3 days, 1/2 tab daily for 2 days PREDNISONE 20 MG TAB 661644 PREDNISON E Inactive AVELOX 400 MG TABS 1 tab by mouth daily A VELOX 400 MG TABS 139755 MOXIFLOXACIN HCL Inactive AVELOX 400 MG TABS 1 tab by mouth daily A VELOX 400 MG TABS 700427 MOXIFLOXACIN HCL Inactive PREDNISONE 20 MG TAB Take 3 tabs daily for 3 days , 2 tabs daily for 3 days, 1 tab daily for 3 days, 1/2 tab daily for 3 days PREDNISONE 20 MG TAB 079944 PREDNISONE Inactive LEVAQUIN 500 MG TABS take one po QD LEVAQUIN 50 0 MG TABS 768987 LEVOFLOXACIN Inactive AZITHROMYCIN 250 MG TABS 2 po qd x 1 day, then 1 po qd x 4 days AZITHROMYCIN 250 MG TABS 0111927 AZITHROMYCIN Inactiv e MEDROL (REYNA) 4 MG TABS 6 tabs on day 1, 5 tabs on d ay 2, 4 tabs on day 3, 3 tabs on day 4, 2 tabs on day 5, 1 tab on day 6 MEDROL (REYNA) 4 MG TABS 078526 METHYLPREDNISOLONE Inactive CHERATUSSIN AC 100-10 MG/5ML SYRP 5ml po q6hr PRN Cough CHERATUSSIN AC 100-10 MG/5ML SYRP 449830 GUAIFENESIN-CODEINE Inacti ve TRIAMCINOLONE ACETONIDE 0.1 % CREA apply three times daily prn r beatrice TRIAMCINOLONE ACETONIDE 0.1 % CREA 7731791 TRIAMCINOLONE ACETONIDE Inactive AZITHROMYCIN 250 MG TABS 2 po qd x 1 day, then 1 po qd x 4 days AZITHROMYCIN 250 MG TABS 7449869 AZITHROMYCIN Inactiv e MEDROL (REYNA) 4 MG TABS 6 pills x 1 day, then 5 pill s x 1 day then 4 pills x 1 day, then 3 pills x 1 day, then 2 pills x 1 day, then 1 pill x 1 day, then stop MEDROL (REYNA) 4 MG TABS 955737 METHYLPREDNISOLONE Inactive AMOXICILLIN 500 MG CAP 1 tab by mouth 3 times daily x 10 days 20 13/03/08 AMOXICILLIN 500 MG CAP 195776 AMOXICILLIN Inactive AMOXICILLIN 500 MG CAP 1 tab by mouth 3 times daily x 10 days 20 14/04/28 AMOXICILLIN 500 MG CAP 701027 AMOXICILLIN Inactive ZITHROMAX 250 MG TAB 2 po today, then 1 po q days 2-5 ZITHROMAX 250 MG TAB 2808742 AZITHROMYCIN Inactive AUGMENTIN 875-125 MG TAB 1 po BID x 10 days AUGMENTIN 875- 125 MG TAB 678882 AMOXICILLIN-POT CLAVULANATE Inactive ZITHROMAX Z-REYNA 250 MG TABS 2 today, then 1 daily for 4 days 201 08/07/20 ZITHROMAX Z-REYNA 250 MG TABS 0832691 AZITHROMYCIN Inac tive ZITHROMAX 250 MG TAB 2 po today, then 1 po q days 2-5 ZITHROMAX 250 MG TAB 9277827 AZITHROMYCIN Inactive ZITHROMAX Z-REYNA 250 MG TABS 2 today, then 1 daily for 4 days 201 08/30/03 ZITHROMAX Z-REYNA 250 MG TABS 5064473 AZITHROMYCIN Inac tive CEFDINIR 300 MG CAPS 1 po BID x 10 days C EFDINIR 300 MG CAPS 20020704 CEFDINIR Inactive ZITHROMAX 250 MG TAB 2 po today, then 1 po q days 2-5 ZITHROMAX 250 MG TAB 5710569 AZITHROMYCIN Inactive LEVAQUIN 500 MG TAB 1 tablet by mouth daily LEVAQUIN 500 MG TAB 652143 LEVOFLOXACIN Inactive SINGULAIR 10 MG TABS 1 po qday for allergies 2 SINGULAIR 10 MG TABS 20010504 MONTELUKAST SODIUM Inactive AMOXICILLIN 500 MG CAPS 2 po BID x 10 days AMOXICILLIN 500 MG CAPS 506826 AMOXICILLIN Inactive PREDNISONE 20 MG TAB 2 tabs daily for 3 days, 1 t ab daily for 3 days, 1/2 tab daily for 2 days PREDNISONE 20 MG TAB 717823 PREDNISON E Inactive ZITHROMAX Z-REYNA 250 MG TABS 2 today, then 1 daily for 4 days 201 09/29/14 ZITHROMAX Z-REYNA 250 MG TABS 6788494 AZITHROMYCIN Inac tive PREDNISONE 20 MG TAB 2 tabs daily for 3 days, 1 t ab daily for 3 days, 1/2 tab daily for 2 days PREDNISONE 20 MG TAB 506121 PREDNISON E Inactive ZITHROMAX 250 MG TAB 2 po today, then 1 po q days 2-5 ZITHROMAX 250 MG TAB 3157259 AZITHROMYCIN Inactive Vital Signs Date Name Value [...] Negative Encounters Code Encounter Date Provider Facility CPT-22278 Level 3 Est. Patient 12:17:50 CDT Hugo Restrepo MD [facility] CPT-22715 Level 3 Est. Patient 13:42:38 CDT Italo [facility] CPT-65585 Level 3 Est. Patient 13:23:51 CDT Diya cobian [facility]-69637 Level 3 Est. Patient 14:22:19 PLANNING INTERN Diya cobian [facility] CPT-67776 Level 3 Est. Patient 10:11:46 CDT Carlton rich MD [facility]-22651 Level 3 Est. Patient 17:29:43 CDT Elise And chelly [facility] CPT-57181 Level 3 Est. Patient 11:58:06 CDT Elise Guerrero asaelgiselle [facility] CPT-71289 Level 4 Est. Patient 14:36:51 CDT Carlton rich MD [facility]-22961 Level 3 Est. Patient 18:16:00 PLANNING INTERN Blaine Freeman [facility] CPT-70946 Level 3 Est. Patient 09:45:49 PLANNING INTERN Carlton rich MD [facility] CPT-89522 Level 3 Est. Patient 13:19:20 CDT Carlton rich MD [facility] CPT-31164 Level 3 Est. Patient 13:06:43 CDT Ridge tam DO [facility] CPT-96985 Level 3 Est. Patient 10:03:07 CDT Perez Mora MD [facility] CPT-35438 Level 3 Est. Patient 19:50:35 PLANNING INTERN Carlton rich MD [facility] CPT-99451 Level 4 Est. Patient 18:05:01 PLANNING INTERN Carlton rich MD [facility] CPT-03759 Level 3 Est. Patient 10:45:55 PLANNING INTERN Hugo Restrepo MD [facility]-40198 Level 3 Est. Patient 14:12:49 CDT Griffin lincoln [facility] CPT-24232 Level 3 Est. Patient 17:37:24 CDT Carlton rich MD [facility] CPT-20415 Level 3 Est. Patient 16:51:54 CDT Carlton rich MD [facility]-82539 Level 3 Est. Patient 12:18:11 CDT Hugo Restrepo MD [facility]-21373 Level 3 Est. Patient 11:30:25 CDT Marcy crisostomo MD PhD [facility] CPT-08139 Level 3 Est. Patient 12:00:47 PLANNING INTERN Carlton rich MD [facility]-56583 Level 3 Est. Patient 16:31:06 PLANNING INTERN Carlton rich MD [facility]-47482 Level 3 Est. Patient 16:23:24 PLANNING INTERN Ridge tam [facility] CPT-43506 Level 3 Est. Patient 12:34:12 CDT Carlton rich MD [facility] CPT-09032 Level 2 Est. Patient 15:43:33 CDT Robi armstrong MD [facility] CPT-85888 Level 4 Est. Patient 14:04:44 CDT Carlton rich MD [facility]-77991 Level 3 Est. Patient 05:47:59 CDT Ridge tam [facility] CPT-01116 Level 3 Est. Patient 13:12:53 PLANNING INTERN Carlton rich MD [facility]-27815 Level 3 Est. Patient 14:26:53 CDT Hugo Restrepo MD [facility] Procedures Code Procedure Name Date Entry Date Standard Desc ription CPT-J1040 Depo Medrol 80 mg (Methyl Prednisolone A cetate) 10:42:44 CDT CPT-J1100 Decadron 8mg (Dexamethasone) 10:42:44 CDT 2 CPT-J0696 Rocephin 1gm Inj Solr 14:32:13 CDT CPT-J1020 Depo Medrol 60 mg (Methyl Prednisolone A cetate) 14:32:13 CDT CPT-J1100 Decadron 6mg (Dexamethasone) 14:32:13 CDT 2 CPT-81222 Hip bilat min 2V w AP pelvis 13:16:20 CDT 2 CPT-19945 Pelvis only 13:07:33 CDT CPT-32349 Spec Collection and Handling Fee 11:25:12 C DT CPT-72911 Fluzone Quadrivalent Intramuscular Suspe nsion 0.5 ML 14:31:55 CDT CPT-00725 Abx/Therapy Injection 13:28:47 PLANNING INTERN CPT-J2930 Solu Medrol 125 mg (Methyl Prednisolone Sodium Succinate) 12:00:47 PLANNING INTERN CPT-59368 Venipuncture Draw Fee 11:33:31 CDT CPT-40507 EKG Trac and Interp 11:21:09 CDT CPT-16204 Chest 2V Frontal and Lat 11:21:09 CDT 12/15 CPT-92507 Venipuncture Draw Fee 08:02:34 CDT CPT-81696 Chest 2V Frontal and Lat 05:47:59 CDT 06/05
--- OUTSIDE RECORDS SUMMARY | 2019-10-08 09:42 | XMS REPORT | Clinical Summary ---
Author Author Caitlin, Juliana Martinez Organization [facility] Address Unknown Phone Unavailable Allergies, Adverse Reactions, [...] then 1 po q days 2-5 AZITHROMYCIN [id number] No Longer Active Carlton Hu MD Acti ve TRAMADOL HCL 50 MG TABS 1 po tid with ES Tylenol TRAMADOL HCL 30917321471 Active Ridge Bess DO Active PREMARIN 0.625 MG TABS TAKE 1 TAB BY MOUTH DAILY 07/25 ESTROGENS CONJUGATED 89344383778 No Longer Active Ridge Bess DO Active CYMBALTA 30 MG CPEP 1 cap by mouth daily DULOXE SNEHA HCL 26117985716 No Longer Active Ridge Bess DO Active AMOXICILLIN 500 MG CAP 1 tab by mouth 3 times daily x 10 days 20 14/04/28 AMOXICILLIN 44937366080 No Longer Active Carlton Hu MD Active AMOXICILLIN 500 MG CAP 1 tab by mouth 3 times daily x 10 days 20 13/03/08 AMOXICILLIN 28768365836 No Longer Active Carlton Hu MD Active CHERATUSSIN AC 100-10 MG/5ML SYRP 1 tsp by mouth every 4 hours as needed for cough GUAIFENESIN-CODEINE 73677609055 Active Carlton banks MD Active CYCLOBENZAPRINE HCL 10 MG TABS 1 tablet by mouth BID prn had pain 2 CYCLOBENZAPRINE HCL 80776362370 Active Carlton Hu MD A ctive PROMETHAZINE-CODEINE 6.25-10 MG/5ML SYRP 1 tsp by mouth ever y 8 hours prn cough PROMETHAZINE-CODEINE 15562388756 No Longer Active Robert Hu MD Active MEDROL (REYNA) 4 MG TABS 6 pills x 1 day, then 5 pill s x 1 day then 4 pills x 1 day, then 3 pills x 1 day, then 2 pills x 1 day, then 1 pill x 1 day, then stop METHYLPREDNISOLONE 05465294197 No Longer Active Parris Mora MD Active AZITHROMYCIN 250 MG TABS 2 po qd x 1 day, then 1 po qd x 4 days AZITHROMYCIN 55128940654 No Longer Active Perez Mora MD Active SYMBICORT 160-4.5 MCG/ACT AERO 2 puffs bid with rinse after 2011 BUDESONIDE-FORMOTEROL FUMARATE 07239749419 No Longer Active Perez Mora MD Active LYRICA 75 MG CAPS TAKE 1 CAPSULE BY MOUTH TWICE DAILY 2013 PREGABALIN 68644853341 No Longer Active Carlton Hu MD Active LYRICA 100 MG CAPS Take 1 tab po BID for fibromyalgia PREGABALIN 22057471072 Active Carlton Hu MD Active TOPAMAX 25 MG TABS 1 qHS x 1 week, then 1 BID x 1 week, then 1 qAM and 2 qHS x 1 week, then 2 BID (migraine prevention) TOPIRAMAT E 67109290486 No Longer Active Jerica Jonesema RMA Active TOPAMAX 50 MG TABS take 1 tab po BID for migraines. 12/07/10 TOPIRAMATE 22726743550 No Longer Active Jerica Osei RMA Ac tive TOPAMAX 100 MG TABS Take 1 tablet po bid TOPIRAMATE 4999 8103257 Active Carlton Hu MD Active TRIAMCINOLONE ACETONIDE 0.1 % CREA apply three times daily prn r beatrice TRIAMCINOLONE ACETONIDE 09753049633 No Longer Active Carlton Hu MD Active PAXIL 40 MG TAB take 1 tab po qday for depression PAROXETINE HCL 91873706624 Active Carlton Hu MD Active CHERATUSSIN AC 100-10 MG/5ML SYRP 5ml po q6hr PRN Cough GUAIFENESIN-CODEINE 55147111407 No Longer Active Carlton Hu MD Active MEDROL (REYNA) 4 MG TABS 6 tabs on day 1, 5 tabs on d ay 2, 4 tabs on day 3, 3 tabs on day 4, 2 tabs on day 5, 1 tab on day 6 METHYLPREDNISOLONE 28268949621 No Longer Active Perez Mora MD Active AZITHROMYCIN 250 MG TABS 2 po qd x 1 day, then 1 po qd x 4 days AZITHROMYCIN 72081898012 No Longer Active Perez Mora MD Active PROPRANOLOL HCL 60 MG TABS 1 PO Q D PROPRANOL OL HCL 80532343961 No Longer Active Perez Mora MD Active CHERATUSSIN AC 100-10 MG/5ML SYRP take one tsp po Q 6hours prn c ough GUAIFENESIN-CODEINE 44162520942 No Longer Active Perez Means Active AUGMENTIN 875-125 MG TAB 1 tab by mouth twice daily with food 20 12/03/31 AMOXICILLIN-POT CLAVULANATE 27531798736 No Longer Active Chanel Mora MD Active CHERATUSSIN AC 100-10 MG/5ML SYRP 1 tsp by mouth every 4 hours as needed for cough GUAIFENESIN-CODEINE 02696353869 No Longer Activ e Hugo Restrepo MD Active ACETAMINOPHEN-CODEINE #3 300-30 MG TABS 1 PO Q 4-6 HRS PRN PAIN ACETAMINOPHEN-CODEINE 54659681511 No Longer Active Hugo Restrepo MD Active LEVAQUIN 500 MG TABS take one po QD LEVOFLOXACI N 24144102553 No Longer Active Griffin HERNANDEZ Active PREDNISONE 20 MG TAB Take 3 tabs daily for 3 days , 2 tabs daily for 3 days, 1 tab daily for 3 days, 1/2 tab daily for 3 days P REDNISONE 67316657029 No Longer Active Carlton Hu MD Active AVELOX 400 MG TABS 1 tab by mouth daily MOXIFLO XACIN HCL 58326112201 No Longer Active Carlton Hu MD Active CHERATUSSIN AC 100-10 MG/5ML SYRP 1 tsp by mouth every 4 hours as needed for cough GUAIFENESIN-CODEINE 06335375257 No Longer Activ e Hugo Restrepo MD Active AVELOX 400 MG TABS 1 tab by mouth daily MOXIFLO XACIN HCL 33638937845 No Longer Active Marcy De La Rosa MD PhD Active TERBINAFINE HCL 250 MG TABS 1 qDay TERBINAF INE HCL 03963065462 No Longer Active Marcy De La Rosa MD PhD Active CHERATUSSIN AC 100-10 MG/5ML SYRP 1 tsp by mouth every 4 hours as needed for cough GUAIFENESIN-CODEINE 47079832623 No Longer Activ e Marcy De La Rosa MD PhD Active AVELOX 400 MG TABS 1 tab by mouth daily MOXIFLO XACIN HCL 39051529100 No Longer Active Marcy De La Rosa MD PhD Active HYDROCODONE-ACETAMINOPHEN 5-325 MG TABS 1 po q 6hr PRN cough 201 05/09/16 HYDROCODONE-ACETAMINOPHEN 41819912560 No Longer Active Marcy De La Rosa MD PhD Active PREDNISONE 20 MG TAB 2 tabs daily for 3 days, 1 t ab daily for 3 days, 1/2 tab daily for 2 days PREDNISONE 74594686452 No Longer Active Carlton Hu MD Active CEFDINIR 300 MG CAPS by mouth twice a day CEFDI ODILIA 70575858536 No Longer Active Carlton Hu MD Active ZOCOR 40 MG TAB 1 tab by mouth daily SIMVASTATIN 77652335696 Active Carlton Hu MD Active HYDROCHLOROTHIAZIDE 25 MG TABS 1 TAB PO DAILY H YDROCHLOROTHIAZIDE 40941650313 Active Carlton Hu MD Active ACETAMINOPHEN-CODEINE #3 300-30 MG TABS 1 tablet po q 4-6hrs prn pain ACETAMINOPHEN-CODEINE 91482963800 No Longer Active Ridge Bess DO Active ZITHROMAX 250 MG TAB 2 po today, then 1 po q days 2-5 AZITHROMYCIN 36861887407 No Longer Active Carlton Hu MD Acti ve CHERATUSSIN AC 100-10 MG/5ML SYRP take 1 tsp po q4-6 hours prn c ough GUAIFENESIN-CODEINE 63933715874 No Longer Active Carlton Hu MD Active ACETAMINOPHEN-CODEINE #3 300-30 MG TABS 1 PO Q 4-6 HR PRN PAIN 2 ACETAMINOPHEN-CODEINE 49025979175 No Longer Active Carlton rich MD Active LORTAB 7.5-500 MG/15ML ELIX 7.5 ml po q 4 hour prn cough HYDROCODONE-ACETAMINOPHEN 45683636508 No Longer Active Carlton Hu MD Active PREDNISONE 20 MG TAB 1 po bid 3 days, then 1 po q day 3 days 201 05/03/07 PREDNISONE 70960486812 No Longer Active Carlton Hu MD Active ELMIRON 100 MG CAPS 2 tablets in the am and 1 tablet at hs PENTOSAN POLYSULFATE SODIUM 53953503278 Active Graciemaximiliano Hernandezr Active CEFDINIR 300 MG CAPS by mouth twice a day CEFDI ODILIA 53161389664 No Longer Active Carlton Hu MD Active CEFDINIR 300 MG CAPS by mouth twice a day CEFDI ODILIA 36136293655 No Longer Active Carlton Hu MD Active CEFDINIR 300 MG CAPS by mouth twice a day CEFDI ODILIA 19419152579 No Longer Active Carlton Hu MD Active TESSALON PERLES 100 MG CAP 1 tablet by mouth 3 times daily a s needed for cough BENZONATATE 92001149465 No Longer Active Carlton bustamante MD Active CEFDINIR 300 MG CAPS by mouth twice a day CEFDI ODILIA 70362342025 No Longer Active Carlton Hu MD Active ZITHROMAX Z-REYNA 250 MG TABS 2 today, then 1 daily for 4 days 201 04/09/17 AZITHROMYCIN 14473505131 No Longer Active Hugo Restrepo MD Active TESSALON PERLES 100 MG CAP 1 tablet by mouth 3 times daily a s needed for cough TESSALON PERLES 100 MG CAP 906322 BENZONATATE I nactive PREDNISONE 20 MG TAB 1 po bid 3 days, then 1 po q day 3 days 201 05/03/07 PREDNISONE 20 MG TAB 956624 PREDNISONE Inactive LORTAB 7.5-500 MG/15ML ELIX 7.5 ml po q 4 hour prn cough LORTAB 7.5-500 MG/15ML ELIX HYDROCODONE-ACETAMINOPHEN Inacti ve ACETAMINOPHEN-CODEINE #3 300-30 MG TABS 1 PO Q 4-6 HR PRN PAIN 2 ACETAMINOPHEN-CODEINE #3 300-30 MG TABS 006780 ACETAMIN OPHEN-CODEINE Inactive CHERATUSSIN AC 100-10 MG/5ML SYRP take 1 tsp po q4-6 hours prn c ough CHERATUSSIN AC 100-10 MG/5ML SYRP 601797 GUAIFENESIN-CO DEINE Inactive ACETAMINOPHEN-CODEINE #3 300-30 MG TABS 1 tablet po q 4-6hrs prn pain ACETAMINOPHEN-CODEINE #3 300-30 MG TABS 450220 ACETAMIN OPHEN-CODEINE Inactive HYDROCODONE-ACETAMINOPHEN 5-325 MG TABS 1 po q 6hr PRN cough 201 05/09/16 HYDROCODONE-ACETAMINOPHEN 5-325 MG TABS 117589 HYDROCODONE-ACETAMINOPHEN Inactive AVELOX 400 MG TABS 1 tab by mouth daily A VELOX 400 MG TABS 110434 MOXIFLOXACIN HCL Inactive CHERATUSSIN AC 100-10 MG/5ML SYRP 1 tsp by mouth every 4 hours as needed for cough CHERATUSSIN AC 100-10 MG/5ML SYRP 468044 GUAIFENESIN-CODEINE Inactive TERBINAFINE HCL 250 MG TABS 1 qDay TERBINAFINE HCL 250 MG TABS 079200 TERBINAFINE HCL Inactive CHERATUSSIN AC 100-10 MG/5ML SYRP 1 tsp by mouth every 4 hours as needed for cough CHERATUSSIN AC 100-10 MG/5ML SYRP 667314 GUAIFENESIN-CODEINE Inactive ACETAMINOPHEN-CODEINE #3 300-30 MG TABS 1 PO Q 4-6 HRS PRN PAIN ACETAMINOPHEN-CODEINE #3 300-30 MG TABS 991314 ACETAMINOPHEN-CODEIN E Inactive CHERATUSSIN AC 100-10 MG/5ML SYRP 1 tsp by mouth every 4 hours as needed for cough CHERATUSSIN AC 100-10 MG/5ML SYRP 688471 GUAIFENESIN-CODEINE Inactive AUGMENTIN 875-125 MG TAB 1 tab by mouth twice daily with food 20 12/03/31 AUGMENTIN 875-125 MG TAB 453605 AMOXICILLIN-POT CLAVULA EFE Inactive CHERATUSSIN AC 100-10 MG/5ML SYRP take one tsp po Q 6hours prn c ough CHERATUSSIN AC 100-10 MG/5ML SYRP 274283 GUAIFENESIN-CO DEINE Inactive PROPRANOLOL HCL 60 MG TABS 1 PO Q D P ROPRANOLOL HCL 60 MG TABS 418153 PROPRANOLOL HCL Inactive TOPAMAX 50 MG TABS take 1 tab po BID for migraines. 12/07/10 TOPAMAX 50 MG TABS 788443 TOPIRAMATE Inactive TOPAMAX 25 MG TABS 1 qHS x 1 week, then 1 BID x 1 week, then 1 qAM and 2 qHS x 1 week, then 2 BID (migraine prevention) TOPAMAX 2 5 MG TABS 806121 TOPIRAMATE Inactive LYRICA 75 MG CAPS TAKE 1 CAPSULE BY MOUTH TWICE DAILY LYRICA 75 MG CAPS PREGABALIN Inactive SYMBICORT 160-4.5 MCG/ACT AERO 2 puffs bid with rinse after 2011 SYMBICORT 160-4.5 MCG/ACT AERO BUDESONIDE-FORMOT SÁNCHEZ FUMARATE Inactive PROMETHAZINE-CODEINE 6.25-10 MG/5ML SYRP 1 tsp by mouth ever y 8 hours prn cough PROMETHAZINE-CODEINE 6.25-10 MG/5ML SYRP 695746 PROMETHAZINE-CODEINE Inactive CYMBALTA 30 MG CPEP 1 cap by mouth daily CYMBALTA 30 MG CPEP 822462 DULOXETINE HCL Inactive PREMARIN 0.625 MG TABS TAKE 1 TAB BY MOUTH DAILY 07/25 PREMARIN 0.625 MG TABS ESTROGENS CONJUGATED Inactive ZITHROMAX Z-REYNA 250 MG TABS 2 today, then 1 daily for 4 days 201 04/09/17 ZITHROMAX Z-REYNA 250 MG TABS 9748661 AZITHROMYCIN Inac tive CEFDINIR 300 MG CAPS [...] q days 2-5 ZITHROMAX 250 MG TAB 3266047 AZITHROMYCIN Inactive CEFDINIR 300 MG CAPS by mouth twice a day CEFDINIR 300 MG CAPS 20020704 CEFDINIR Inactive PREDNISONE 20 MG TAB 2 tabs daily for 3 days, 1 t ab daily for 3 days, 1/2 tab daily for 2 days PREDNISONE 20 MG TAB 833503 PREDNISON E Inactive AVELOX 400 MG TABS 1 tab by mouth daily A VELOX 400 MG TABS 220260 MOXIFLOXACIN HCL Inactive AVELOX 400 MG TABS 1 tab by mouth daily A VELOX 400 MG TABS 602346 MOXIFLOXACIN HCL Inactive PREDNISONE 20 MG TAB Take 3 tabs daily for 3 days , 2 tabs daily for 3 days, 1 tab daily for 3 days, 1/2 tab daily for 3 days PREDNISONE 20 MG TAB 136164 PREDNISONE Inactive LEVAQUIN 500 MG TABS take one po QD LEVAQUIN 50 0 MG TABS 107541 LEVOFLOXACIN Inactive AZITHROMYCIN 250 MG TABS 2 po qd x 1 day, then 1 po qd x 4 days AZITHROMYCIN 250 MG TABS 2404731 AZITHROMYCIN Inactiv e MEDROL (REYNA) 4 MG TABS 6 tabs on day 1, 5 tabs on d ay 2, 4 tabs on day 3, 3 tabs on day 4, 2 tabs on day 5, 1 tab on day 6 MEDROL (REYNA) 4 MG TABS METHYLPREDNISOLONE Inactive CHERATUSSIN AC 100-10 MG/5ML SYRP 5ml po q6hr PRN Cough CHERATUSSIN AC 100-10 MG/5ML SYRP 772934 GUAIFENESIN-CODEINE Inacti ve TRIAMCINOLONE ACETONIDE 0.1 % CREA apply three times daily prn r beatrice TRIAMCINOLONE ACETONIDE 0.1 % CREA 4910860 TRIAMCINOLONE ACETONIDE Inactive AZITHROMYCIN 250 MG TABS 2 po qd x 1 day, then 1 po qd x 4 days AZITHROMYCIN 250 MG TABS 3843310 AZITHROMYCIN Inactiv e MEDROL (REYNA) 4 MG [...] days 20 13/03/08 AMOXICILLIN 500 MG CAP 993003 AMOXICILLIN Inactive AMOXICILLIN 500 MG CAP 1 tab by mouth 3 times daily x 10 days 20 14/04/28 AMOXICILLIN 500 MG CAP 748369 AMOXICILLIN Inactive ZITHROMAX 250 MG TAB 2 po today, then 1 po q days 2-5 ZITHROMAX 250 MG TAB 6897074 AZITHROMYCIN Inactive Vital Signs Date Name Value [...] [phone] Encounters Code Encounter Date Provider Facility CPT-54258 Level 3 Est. Patient 13:19:20 CDT Carlton rich MD [facility] CPT-16183 Level 3 Est. Patient 13:06:43 CDT Ridge tam DO [facility] CPT-69480 Level 3 Est. Patient 10:03:07 CDT Perez Mora MD [facility] [place] [facility] [place] Level 3 Est. Patient 19:50:35 LOGGING SPECIALIST Carlton rich MD [facility] [place] [facility]478 Level 4 Est. Patient 18:05:01 LOGGING SPECIALIST Carlton rich MD [facility] [place] [facility] Level 3 Est. Patient 10:45:55 LOGGING SPECIALIST Hugo Restrepo MD [facility] [place] [facility] Level 3 Est. Patient 14:12:49 CDT Griffin HERNANDEZ [facility] CPT-94331 Level 3 Est. Patient 17:37:24 CDT Carlton rich MD [facility] [place] [facility] [place] Level 3 Est. Patient 16:51:54 CDT Carlton rich MD [facility] [place] [facility]30 Level 3 Est. Patient 12:18:11 CDT Hugo Restrepo MD [facility] [place] [facility] [place] Level 3 Est. Patient 11:30:25 CDT Marcy crisostomo MD PhD [facility] [place] [facility] [place]30 Level 3 Est. Patient 12:00:47 LOGGING SPECIALIST Carlton rich MD [facility] [place] [facility] [place]00 Level 3 Est. Patient 16:31:06 LOGGING SPECIALIST Carlton rich MD [facility] [place] [facility] [place]573 Level 3 Est. Patient 16:23:24 LOGGING SPECIALIST Ridge tam DO [facility] [place] [facility] [place]10 Level 3 Est. Patient 12:34:12 CDT Carlton rich MD [facility] CPT-90636 Level 2 Est. Patient 15:43:33 CDT Robi armstrong MD [facility] CPT-43592 Level 4 Est. Patient 14:04:44 CDT Carlton rich MD [facility] CPT-29539 Level 3 Est. Patient 05:47:59 CDT Ridge tam DO [facility] CPT-17863 Level 3 Est. Patient 13:12:53 LOGGING SPECIALIST Carlton rich MD [facility] CPT-44083 Level 3 Est. Patient 14:26:53 CDT Hugo Restrepo MD [facility] Procedures Code Procedure Name Date Entry Date Standard Desc ription CPT-37067 Hip bilat min 2V w AP pelvis 13:16:20 CDT 2 CPT-60348 Pelvis only 13:07:33 CDT CPT-57704 Spec Collection and Handling Fee 11:25:12 C DT CPT-07699 Fluzone Quadrivalent Intramuscular Suspe nsion 0.5 ML 14:31:55 CDT CPT-09322 Abx/Therapy Injection 13:28:47 LOGGING SPECIALIST CPT-J2930 Solu Medrol 125 mg (Methyl Prednisolone Sodium Succinate) 12:00:47 LOGGING SPECIALIST CPT-92926 Venipuncture Draw Fee 11:33:31 CDT CPT-84976 EKG Trac and Interp 11:21:09 CDT CPT-11741 Chest 2V Frontal and Lat 11:21:09 CDT 12/15 CPT-63111 Venipuncture Draw Fee 08:02:34 CDT CPT-44133 Chest 2V Frontal and Lat 05:47:59 CDT 06/05
--- OUTSIDE RECORDS SUMMARY | 2019-10-08 09:43 | XMS REPORT | Clinical Summary ---
Author Author Caitlin, Juliana Martinez Organization [email or web address] [facility] Address Unknown Phone Unavailable Allergies, [...] sites Sinusitis 473.9 Active Diya De Guzman INVOICE CHECKER Unspecified sinusitis (chronic) Bronchitis-Acute 466.0 Active Carlton Hu MD Acute bronchitis URI - acute 465.9 Active Elise Whitmore INVOICE CHECKER Acute upper respiratory infections of unspecified site Pharyngitis acute 462 Active Elise Whitmore A PRN Acute pharyngitis Rhinitis, acute 460 Active Elise Whitmore APR N Acute nasopharyngitis [common cold] Sinusitis 473.9 Active Diya De Guzman INVOICE CHECKER Unspecified sinusitis (chronic) Bronchitis 490 Active Diya De Guzman INVOICE CHECKER Bronchitis, not specified as acute or chronic [...] Ph D CONTACT DERMATITIS ICD-692.9 Inactive Marcy crissotomo MD PhD SINUSITIS, ACUTE ICD-461.9 Inactive Hugo dominguez MD Medication List Medication Instructions Start Date Stop Date Generic Name NDC Status Provider Patient Instruction PROAIR HFA 108 (90 BASE) MCG/ACT AERS 2 puffs four times a d ay as needed ALBUTEROL SULFATE [id number] Active Jillina Frakerriel APR N Active MUCINEX DM MAXIMUM STRENGTH 60-1200 MG [id number] 1 tab po q am 2016 DEXTROMETHORPHAN-GUAIFENESIN [id number] Active Jillina Frazell INVOICE CHECKER Active TUSSIONEX PENNKINETIC ER 10-8 MG/5ML LQCR 5ml po q12hr PRN Cough 20 14/06/21 HYDROCOD POLST-CHLORPHEN POLST 26773065175 Active Jillina Frakerriel INVOICE CHECKER Active PREDNISONE 20 MG TAB 2 tabs daily for 3 days, 1 t ab daily for 3 days, 1/2 tab daily for 2 days PREDNISONE 84833696174 Active Jillina Cesarl INVOICE CHECKER Active TUSSIONEX PENNKINETIC ER 10-8 MG/5ML ORAL LQCR 5 mL PO q 12 hrs PRN cough HYDROCOD POLST-CHLORPHEN POLST 42196081505 No Longer Active Jillina Frazell INVOICE CHECKER Active FLUTICASONE PROPIONATE 50 MCG/ACT SUSP 2 sprays each n ostril daily until bottle is empty FLUTICASONE PROPIONATE 73514550934 No Longer Ac tive Jillina Daphnezell INVOICE CHECKER Active ASMANEX 60 METERED DOSES 220 MCG/INH AEPB 1 puff bid with ri nse after MOMETASONE FUROATE 70291538116 No Longer Active Venullina Darlin meneses INVOICE CHECKER Active ZITHROMAX Z-REYNA 250 MG TABS 2 today, then 1 daily for 4 days 201 09/29/14 AZITHROMYCIN 33448048577 No Longer Active Elise Whitmore APRN Active TUSSIONEX PENNKINETIC ER 10-8 MG/5ML LQCR 5ml po q12hr PRN Cough HYDROCOD POLST-CHLORPHEN POLST 68810483198 No Longer Active Elise Whitmore APRN Active MUCINEX D 60-600 MG [id number] 1 tab po q am PSEUDOEPHEDRINE-GUAIFENESIN 82771474811 Active Jillina Frazell INVOICE CHECKER Active PREDNISONE 20 MG TAB 2 tabs daily for 3 days, 1 t ab daily for 3 days, 1/2 tab daily for 2 days PREDNISONE 87161793398 No Longer Active Jillina Frazell INVOICE CHECKER Active AMOXICILLIN 500 MG CAPS 2 po BID x 10 days AMOX ICILLIN 97129628297 No Longer Active Jillina Frazell INVOICE CHECKER Active SINGULAIR 10 MG TABS 1 po qday for allergies 2 MONTELUKAST SODIUM 94187570378 No Longer Active Carlton Hu MD Acti ve LEVAQUIN 500 MG TAB 1 tablet by mouth daily LEV OFLOXACIN 93787886359 No Longer Active Carlton Hu MD Active FLUTICASONE PROPIONATE 50 MCG/ACT SUSP 2 sprays each n ostril daily for 2 weeks, then 1 spray each nostril daily. FLUTICASONE PRO PIONATE 38464176015 Active Elise Whitmore APRN Active ZITHROMAX 250 MG TAB 2 po today, then 1 po q days 2-5 AZITHROMYCIN 67692480794 No Longer Active Elise Whitmore APRN Acti ve XANAX 0.5 MG TABS one tablet by mouth daily prn anxiety ALPRAZOLAM 67061237451 Active Elise Whitmore APRN Active CYMBALTA 30 MG CPEP 1 cap by mouth daily for depression DULOXETINE HCL 13561799949 Active Carlton Hu MD Active CEFDINIR 300 MG CAPS 1 po BID x 10 days CEFDINI R 28084613396 No Longer Active Carlton Hu MD Active ZOCOR 40 MG TAB 1 tab by mouth daily SIMVASTATI N 43249749656 No Longer Active Carlton Hu MD Active CYCLOBENZAPRINE HCL 10 MG TABS 1 tablet by mouth BID prn had cherelle n CYCLOBENZAPRINE HCL 78463568072 No Longer Active Carlton Hu MD Active LEVOFLOXACIN 500 MG ORAL TABS 1 tab PO daily x 10 days LEVOFLOXACIN 62321734482 No Longer Active Carlton Hu MD Acti ve PREDNISONE 20 MG ORAL TABS 3 tab PO qd x 2d, 2 tab PO qd x 2d, 1 tab PO qd x 2d, 1/2 tab PO qd x 2d PREDNISONE 95757828596 No Longer Active Carlton Hu MD Active FLUTICASONE PROPIONATE 50 MCG/ACT SUSP 1 to 2 sprays each no stril daily FLUTICASONE PROPIONATE 96241033915 No Longer Active T jaz HERNANDEZ Active CHERATUSSIN AC 100-10 MG/5ML SYRP 1 tsp by mouth every 4 hours as needed for cough GUAIFENESIN-CODEINE 01739107967 No Longer Activ e Blaine HERNANDEZ Active PROMETHAZINE-CODEINE 6.25-10 MG/5ML SYRP 1 tsp by mout h every 6 hours if needed for cough PROMETHAZINE-CODEINE 03303108285 No Long er Active Blaine HERNANDEZ Active CHERATUSSIN AC 100-10 MG/5ML SYRP 1 tsp by mouth every 4 hours as needed for cough GUAIFENESIN-CODEINE 95112757749 No Longer Activ e Blaine HERNANDEZ Active ZITHROMAX Z-REYNA 250 MG TABS 2 today, then 1 daily for 4 days 201 08/30/03 AZITHROMYCIN 22706255191 No Longer Active Columba Parrish Act nael ZITHROMAX 250 MG TAB 2 po today, then 1 po q days 2-5 AZITHROMYCIN 85845764927 No Longer Active Carlton Hu MD Acti ve ZITHROMAX Z-REYNA 250 MG TABS 2 today, then 1 daily for 4 days 201 08/07/20 AZITHROMYCIN 18592133770 No Longer Active Columba Parrish Act nael AUGMENTIN 875-125 MG TAB 1 po BID x 10 days AMOXICILLIN- POT CLAVULANATE 00989840728 No Longer Active Diya De Guzman APRN Active ZITHROMAX 250 MG TAB 2 po today, then 1 po q days 2-5 AZITHROMYCIN 63436481897 No Longer Active Carlton Hu MD Acti ve TRAMADOL HCL 50 MG TABS 1 po tid with ES Tylenol TRAMADOL HCL 47859260904 Active Carlton Hu MD Active PREMARIN 0.625 MG TABS TAKE 1 TAB BY MOUTH DAILY 07/25 ESTROGENS CONJUGATED 43966101800 No Longer Active Ridge Bess DO Active CYMBALTA 30 MG CPEP 1 cap by mouth daily DULOXE SNEHA HCL 80938194647 No Longer Active Ridge Bess DO Active AMOXICILLIN 500 MG CAP 1 tab by mouth 3 times daily x 10 days 20 14/04/28 AMOXICILLIN 58720383647 No Longer Active Carlton Hu MD Active AMOXICILLIN 500 MG CAP 1 tab by mouth 3 times daily x 10 days 20 13/03/08 AMOXICILLIN 10496494170 No Longer Active Carlton Hu MD Active PROMETHAZINE-CODEINE 6.25-10 MG/5ML SYRP 1 tsp by mouth ever y 8 hours prn cough PROMETHAZINE-CODEINE 57850371657 No Longer Active Robert Hu MD Active MEDROL (REYNA) 4 MG TABS 6 pills x 1 day, then 5 pill s x 1 day then 4 pills x 1 day, then 3 pills x 1 day, then 2 pills x 1 day, then 1 pill x 1 day, then stop METHYLPREDNISOLONE 37461616254 No Longer Active Parris Mora MD Active AZITHROMYCIN 250 MG TABS 2 po qd x 1 day, then 1 po qd x 4 days AZITHROMYCIN 84779850770 No Longer Active Perez Mora MD Active SYMBICORT 160-4.5 MCG/ACT AERO 2 puffs bid with rinse after 2011 BUDESONIDE-FORMOTEROL FUMARATE 87352771271 No Longer Active Perez Mora MD Active LYRICA 75 MG CAPS TAKE 1 CAPSULE BY MOUTH TWICE DAILY 2013 PREGABALIN 61178495784 No Longer Active Carlton Hu MD Active LYRICA 100 MG CAPS Take 1 tab po BID for fibromyalgia PREGABALIN 31433209341 Active Carlton Hu MD Active TOPAMAX 25 MG TABS 1 qHS x 1 week, then 1 BID x 1 week, then 1 qAM and 2 qHS x 1 week, then 2 BID (migraine prevention) TOPIRAMAT E 71613849072 No Longer Active Jerica FUENTES Active TOPAMAX 50 MG TABS take 1 tab po BID for migraines. 12/07/10 TOPIRAMATE 06693198925 No Longer Active Jerica AGUILARA Ac tive TOPAMAX 100 MG TABS Take 1 tablet po bid TOPIRAMATE 4999 0158657 Active Elise Whitmore APRN Active TRIAMCINOLONE ACETONIDE 0.1 % CREA apply three times daily prn r beatrice TRIAMCINOLONE ACETONIDE 59745580255 No Longer Active Carlton Hu MD Active PAXIL 40 MG TAB take 1 tab po qday for depression PAROXETINE HCL 31714379726 Active Elise Whitmore APRN Active CHERATUSSIN AC 100-10 MG/5ML SYRP 5ml po q6hr PRN Cough GUAIFENESIN-CODEINE 02360370555 No Longer Active Carlton Hu MD Active MEDROL (REYNA) 4 MG TABS 6 tabs on day 1, 5 tabs on d ay 2, 4 tabs on day 3, 3 tabs on day 4, 2 tabs on day 5, 1 tab on day 6 METHYLPREDNISOLONE 98920651184 No Longer Active Perez Mora MD Active AZITHROMYCIN 250 MG TABS 2 po qd x 1 day, then 1 po qd x 4 days AZITHROMYCIN 17255362023 No Longer Active Perez Mora MD Active PROPRANOLOL HCL 60 MG TABS 1 PO Q D PROPRANOL OL HCL 91051402235 No Longer Active Perez Mora MD Active CHERATUSSIN AC 100-10 MG/5ML SYRP take one tsp po Q 6hours prn c ough GUAIFENESIN-CODEINE 53493373677 No Longer Active Perez Means Active AUGMENTIN 875-125 MG TAB 1 tab by mouth twice daily with food 20 12/03/31 AMOXICILLIN-POT CLAVULANATE 90707482425 No Longer Active Chanel Mora MD Active CHERATUSSIN AC 100-10 MG/5ML SYRP 1 tsp by mouth every 4 hours as needed for cough GUAIFENESIN-CODEINE 28614522286 No Longer Activ e Hugo Restrepo MD Active ACETAMINOPHEN-CODEINE #3 300-30 MG TABS 1 PO Q 4-6 HRS PRN PAIN ACETAMINOPHEN-CODEINE 69777826882 No Longer Active Hugo Restrepo MD Active LEVAQUIN 500 MG TABS take one po QD LEVOFLOXACI N 83831515182 No Longer Active Griffin HERNANDEZ Active PREDNISONE 20 MG TAB Take 3 tabs daily for 3 days , 2 tabs daily for 3 days, 1 tab daily for 3 days, 1/2 tab daily for 3 days P REDNISONE 80251929328 No Longer Active Carlton Hu MD Active AVELOX 400 MG TABS 1 tab by mouth daily MOXIFLO XACIN HCL 97259026307 No Longer Active Carlton Hu MD Active CHERATUSSIN AC 100-10 MG/5ML SYRP 1 tsp by mouth every 4 hours as needed for cough GUAIFENESIN-CODEINE 47336132262 No Longer Activ e Hugo Restrepo MD Active AVELOX 400 MG TABS 1 tab by mouth daily MOXIFLO XACIN HCL 52457300207 No Longer Active Marcy De La Rosa MD PhD Active TERBINAFINE HCL 250 MG TABS 1 qDay TERBINAF INE HCL 35364297015 No Longer Active Marcy De La Rosa MD PhD Active CHERATUSSIN AC 100-10 MG/5ML SYRP 1 tsp by mouth every 4 hours as needed for cough GUAIFENESIN-CODEINE 67219933294 No Longer Activ e Marcy De La Rosa MD PhD Active AVELOX 400 MG TABS 1 tab by mouth daily MOXIFLO XACIN HCL 04671713315 No Longer Active Marcy De La Rosa MD PhD Active HYDROCODONE-ACETAMINOPHEN 5-325 MG TABS 1 po q 6hr PRN cough 201 05/09/16 HYDROCODONE-ACETAMINOPHEN 68646937366 No Longer Active Marcy De La Rosa MD PhD Active PREDNISONE 20 MG TAB 2 tabs daily for 3 days, 1 t ab daily for 3 days, 1/2 tab daily for 2 days PREDNISONE 52088174526 No Longer Active Carlton Hu MD Active CEFDINIR 300 MG CAPS by mouth twice a day CEFDI ODILIA 96931262186 No Longer Active Carlton Hu MD Active HYDROCHLOROTHIAZIDE 25 MG TABS 1 TAB PO DAILY H YDROCHLOROTHIAZIDE 74336122027 Active Carlton Hu MD Active ACETAMINOPHEN-CODEINE #3 300-30 MG TABS 1 tablet po q 4-6hrs prn pain ACETAMINOPHEN-CODEINE 00497876766 No Longer Active Ridge Bess DO Active ZITHROMAX 250 MG TAB 2 po today, then 1 po q days 2-5 AZITHROMYCIN 90143372081 No Longer Active Carlton Hu MD Acti ve CHERATUSSIN AC 100-10 MG/5ML SYRP take 1 tsp po q4-6 hours prn c ough GUAIFENESIN-CODEINE 70637034866 No Longer Active Carlton Hu MD Active ACETAMINOPHEN-CODEINE #3 300-30 MG TABS 1 PO Q 4-6 HR PRN PAIN 2 ACETAMINOPHEN-CODEINE 32247188117 No Longer Active Carlton rich MD Active LORTAB 7.5-500 MG/15ML ELIX 7.5 ml po q 4 hour prn cough HYDROCODONE-ACETAMINOPHEN 00611326136 No Longer Active Carlton Hu MD Active PREDNISONE 20 MG TAB 1 po bid 3 days, then 1 po q day 3 days 201 05/03/07 PREDNISONE 93685925599 No Longer Active Carlton Hu MD Active ELMIRON 100 MG CAPS 2 tablets in the am and 1 tablet at hs PENTOSAN POLYSULFATE SODIUM 14912822020 Active Carlton Hu MD Ac tive CEFDINIR 300 MG CAPS by mouth twice a day CEFDI ODILIA 76199544065 No Longer Active Carlton Hu MD Active CEFDINIR 300 MG CAPS by mouth twice a day CEFDI ODILIA 81365613023 No Longer Active Carlton Hu MD Active CEFDINIR 300 MG CAPS by mouth twice a day CEFDI ODILIA 77850874042 No Longer Active Carlton Hu MD Active TESSALON PERLES 100 MG CAP 1 tablet by mouth 3 times daily a s needed for cough BENZONATATE 57152701651 No Longer Active Carlton bustamante MD Active CEFDINIR 300 MG CAPS by mouth twice a day CEFDI ODILIA 51274167790 No Longer Active Carlton Hu MD Active ZITHROMAX Z-REYNA 250 MG TABS 2 today, then 1 daily for 4 days 201 04/09/17 AZITHROMYCIN 20316282505 No Longer Active Hugo Restrepo MD Active TESSALON PERLES 100 MG CAP 1 tablet by mouth 3 times daily a s needed for cough TESSALON PERLES 100 MG CAP 125747 BENZONATATE I nactive PREDNISONE 20 MG TAB 1 po bid 3 days, then 1 po q day 3 days 201 05/03/07 PREDNISONE 20 MG TAB 951299 PREDNISONE Inactive LORTAB 7.5-500 MG/15ML ELIX 7.5 ml po q 4 hour prn cough LORTAB 7.5-500 MG/15ML ELIX HYDROCODONE-ACETAMINOPHEN Inacti ve ACETAMINOPHEN-CODEINE #3 300-30 MG TABS 1 PO Q 4-6 HR PRN PAIN 2 ACETAMINOPHEN-CODEINE #3 300-30 MG TABS 866502 ACETAMIN OPHEN-CODEINE Inactive CHERATUSSIN AC 100-10 MG/5ML SYRP take 1 tsp po q4-6 hours prn c ough CHERATUSSIN AC 100-10 MG/5ML SYRP 914937 GUAIFENESIN-CO DEINE Inactive ACETAMINOPHEN-CODEINE #3 300-30 MG TABS 1 tablet po q 4-6hrs prn pain ACETAMINOPHEN-CODEINE #3 300-30 MG TABS 323514 ACETAMIN OPHEN-CODEINE Inactive HYDROCODONE-ACETAMINOPHEN 5-325 MG TABS 1 po q 6hr PRN cough 201 05/09/16 HYDROCODONE-ACETAMINOPHEN 5-325 MG TABS 421297 HYDROCODONE-ACETAMINOPHEN Inactive AVELOX 400 MG TABS 1 tab by mouth daily A VELOX 400 MG TABS 419428 MOXIFLOXACIN HCL Inactive CHERATUSSIN AC 100-10 MG/5ML SYRP 1 tsp by mouth every 4 hours as needed for cough CHERATUSSIN AC 100-10 MG/5ML SYRP 641820 GUAIFENESIN-CODEINE Inactive TERBINAFINE HCL 250 MG TABS 1 qDay TERBINAFINE HCL 250 MG TABS 337494 TERBINAFINE HCL Inactive CHERATUSSIN AC 100-10 MG/5ML SYRP 1 tsp by mouth every 4 hours as needed for cough CHERATUSSIN AC 100-10 MG/5ML SYRP 965362 GUAIFENESIN-CODEINE Inactive ACETAMINOPHEN-CODEINE #3 300-30 MG TABS 1 PO Q 4-6 HRS PRN PAIN ACETAMINOPHEN-CODEINE #3 300-30 MG TABS 987175 ACETAMINOPHEN-CODEIN E Inactive CHERATUSSIN AC 100-10 MG/5ML SYRP 1 tsp by mouth every 4 hours as needed for cough CHERATUSSIN AC 100-10 MG/5ML SYRP 492430 GUAIFENESIN-CODEINE Inactive AUGMENTIN 875-125 MG TAB 1 tab by mouth twice daily with food 20 12/03/31 AUGMENTIN 875-125 MG TAB 233009 AMOXICILLIN-POT CLAVULA EFE Inactive CHERATUSSIN AC 100-10 MG/5ML SYRP take one tsp po Q 6hours prn c ough CHERATUSSIN AC 100-10 MG/5ML SYRP 841139 GUAIFENESIN-CO DEINE Inactive PROPRANOLOL HCL 60 MG TABS 1 PO Q D P ROPRANOLOL HCL 60 MG TABS 822105 PROPRANOLOL HCL Inactive TOPAMAX 50 MG TABS take 1 tab po BID for migraines. 12/07/10 TOPAMAX 50 MG TABS 305999 TOPIRAMATE Inactive TOPAMAX 25 MG TABS 1 qHS x 1 week, then 1 BID x 1 week, then 1 qAM and 2 qHS x 1 week, then 2 BID (migraine prevention) TOPAMAX 2 5 MG TABS 996341 TOPIRAMATE Inactive LYRICA 75 MG CAPS TAKE 1 CAPSULE BY MOUTH TWICE DAILY LYRICA 75 MG CAPS PREGABALIN Inactive SYMBICORT 160-4.5 MCG/ACT AERO 2 puffs bid with rinse after 2011 SYMBICORT 160-4.5 MCG/ACT AERO BUDESONIDE-FORMOT SÁNCHEZ FUMARATE Inactive PROMETHAZINE-CODEINE 6.25-10 MG/5ML SYRP 1 tsp by mouth ever y 8 hours prn cough PROMETHAZINE-CODEINE 6.25-10 MG/5ML SYRP 402718 PROMETHAZINE-CODEINE Inactive CYMBALTA 30 MG CPEP 1 cap by mouth daily CYMBALTA 30 MG CPEP 011549 DULOXETINE HCL Inactive PREMARIN 0.625 MG TABS TAKE 1 TAB BY MOUTH DAILY 07/25 PREMARIN 0.625 MG TABS ESTROGENS CONJUGATED Inactive CHERATUSSIN AC 100-10 MG/5ML SYRP 1 tsp by mouth every 4 hours as needed for cough CHERATUSSIN AC 100-10 MG/5ML SYRP 563146 GUAIFENESIN-CODEINE Inactive PROMETHAZINE-CODEINE 6.25-10 MG/5ML SYRP 1 tsp by mout h every 6 hours if needed for cough PROMETHAZINE-CODEINE 6.25-10 MG/5ML SYRP 918759 PROMETHAZINE-CODEINE Inactive CHERATUSSIN AC 100-10 MG/5ML SYRP 1 tsp by mouth every 4 hours as needed for cough CHERATUSSIN AC 100-10 MG/5ML SYRP 546884 GUAIFENESIN-CODEINE Inactive FLUTICASONE PROPIONATE 50 MCG/ACT SUSP 1 to 2 sprays each no stril daily FLUTICASONE PROPIONATE 50 MCG/ACT SUSP 2586449 FLUTICASONE PROPIONATE Inactive PREDNISONE 20 MG ORAL TABS 3 tab PO qd x 2d, 2 tab PO qd x 2d, 1 tab PO qd x 2d, 1/2 tab PO qd x 2d PREDNISONE 20 MG ORAL TABS 682142 PREDNISONE Inactive LEVOFLOXACIN 500 MG ORAL TABS 1 tab PO daily x 10 days LEVOFLOXACIN 500 MG ORAL TABS 879328 LEVOFLOXACIN Inactive CYCLOBENZAPRINE HCL 10 MG TABS 1 tablet by mouth BID prn had cherelle n CYCLOBENZAPRINE HCL 10 MG TABS 139778 CYCLOBENZAPRINE H CL Inactive ZOCOR 40 MG TAB 1 tab by mouth daily ZOCOR 40 M G TAB 364789 SIMVASTATIN Inactive TUSSIONEX PENNKINETIC ER 10-8 MG/5ML [...] empty FLUTICASONE PROPIONATE 50 MCG/ACT SUSP 17 77833 FLUTICASONE PROPIONATE Inactive TUSSIONEX PENNKINETIC ER 10-8 MG/5ML ORAL LQCR 5 mL PO q 12 hrs PRN cough TUSSIONEX PENNKINETIC ER 10-8 MG/5ML ORAL LQCR HYDROCOD POLST-CHLORPHEN POLST Inactive ZITHROMAX Z-REYNA 250 MG TABS 2 today, then 1 daily for 4 days 201 04/09/17 ZITHROMAX Z-REYNA 250 MG TABS 1971388 AZITHROMYCIN Inac tive CEFDINIR 300 MG CAPS [...] q days 2-5 ZITHROMAX 250 MG TAB 7388260 AZITHROMYCIN Inactive CEFDINIR 300 MG CAPS by mouth twice a day CEFDINIR 300 MG CAPS 20020704 CEFDINIR Inactive PREDNISONE 20 MG TAB 2 tabs daily for 3 days, 1 t ab daily for 3 days, 1/2 tab daily for 2 days PREDNISONE 20 MG TAB 864051 PREDNISON E Inactive AVELOX 400 MG TABS 1 tab by mouth daily A VELOX 400 MG TABS 865634 MOXIFLOXACIN HCL Inactive AVELOX 400 MG TABS 1 tab by mouth daily A VELOX 400 MG TABS 292925 MOXIFLOXACIN HCL Inactive PREDNISONE 20 MG TAB Take 3 tabs daily for 3 days , 2 tabs daily for 3 days, 1 tab daily for 3 days, 1/2 tab daily for 3 days PREDNISONE 20 MG TAB 373873 PREDNISONE Inactive LEVAQUIN 500 MG TABS take one po QD LEVAQUIN 50 0 MG TABS 578558 LEVOFLOXACIN Inactive AZITHROMYCIN 250 MG TABS 2 po qd x 1 day, then 1 po qd x 4 days AZITHROMYCIN 250 MG TABS 9736944 AZITHROMYCIN Inactiv e MEDROL (REYNA) 4 MG TABS 6 tabs on day 1, 5 tabs on d ay 2, 4 tabs on day 3, 3 tabs on day 4, 2 tabs on day 5, 1 tab on day 6 MEDROL (REYNA) 4 MG TABS 016196 METHYLPREDNISOLONE Inactive CHERATUSSIN AC 100-10 MG/5ML SYRP 5ml po q6hr PRN Cough CHERATUSSIN AC 100-10 MG/5ML SYRP 991867 GUAIFENESIN-CODEINE Inacti ve TRIAMCINOLONE ACETONIDE 0.1 % CREA apply three times daily prn r beatrice TRIAMCINOLONE ACETONIDE 0.1 % CREA 7602755 TRIAMCINOLONE ACETONIDE Inactive AZITHROMYCIN 250 MG TABS 2 po qd x 1 day, then 1 po qd x 4 days AZITHROMYCIN 250 MG TABS 1805739 AZITHROMYCIN Inactiv e MEDROL (REYNA) 4 MG TABS 6 pills x 1 day, then 5 pill s x 1 day then 4 pills x 1 day, then 3 pills x 1 day, then 2 pills x 1 day, then 1 pill x 1 day, then stop MEDROL (REYNA) 4 MG TABS 640483 METHYLPREDNISOLONE Inactive AMOXICILLIN 500 MG CAP 1 tab by mouth 3 times daily x 10 days 20 13/03/08 AMOXICILLIN 500 MG CAP 563760 AMOXICILLIN Inactive AMOXICILLIN 500 MG CAP 1 tab by mouth 3 times daily x 10 days 20 14/04/28 AMOXICILLIN 500 MG CAP 549712 AMOXICILLIN Inactive ZITHROMAX 250 MG TAB 2 po today, then 1 po q days 2-5 ZITHROMAX 250 MG TAB 8461891 AZITHROMYCIN Inactive AUGMENTIN 875-125 MG TAB 1 po BID x 10 days AUGMENTIN 875- 125 MG TAB 101117 AMOXICILLIN-POT CLAVULANATE Inactive ZITHROMAX Z-REYNA 250 MG TABS 2 today, then 1 daily for 4 days 201 08/07/20 ZITHROMAX Z-REYNA 250 MG TABS 2577584 AZITHROMYCIN Inac tive ZITHROMAX 250 MG TAB 2 po today, then 1 po q days 2-5 ZITHROMAX 250 MG TAB 1395902 AZITHROMYCIN Inactive ZITHROMAX Z-REYNA 250 MG TABS 2 today, then 1 daily for 4 days 201 08/30/03 ZITHROMAX Z-REYNA 250 MG TABS 8428489 AZITHROMYCIN Inac tive CEFDINIR 300 MG CAPS 1 po BID x 10 days C EFDINIR 300 MG CAPS 031458 CEFDINIR Inactive ZITHROMAX 250 MG TAB 2 po today, then 1 po q days 2-5 ZITHROMAX 250 MG TAB 3206976 AZITHROMYCIN Inactive LEVAQUIN 500 MG TAB 1 tablet by mouth daily LEVAQUIN 500 MG TAB 976805 LEVOFLOXACIN Inactive SINGULAIR 10 MG TABS 1 po qday for allergies 2 SINGULAIR 10 MG TABS 883383 MONTELUKAST SODIUM Inactive AMOXICILLIN 500 MG CAPS 2 po BID x 10 days AMOXICILLIN 500 MG CAPS 424693 AMOXICILLIN Inactive PREDNISONE 20 MG TAB 2 tabs daily for 3 days, 1 t ab daily for 3 days, 1/2 tab daily for 2 days PREDNISONE 20 MG TAB 961588 PREDNISON E Inactive ZITHROMAX Z-REYNA 250 MG TABS 2 today, then 1 daily for 4 days 201 09/29/14 ZITHROMAX Z-REYNA 250 MG TABS 2213944 AZITHROMYCIN Inac tive Vital Signs Date Name [...] Measured Encounters Code Encounter Date Provider Facility CPT-19229 Level 3 Est. Patient 13:23:51 CDT Diya cobian [facility] CPT-55623 Level 3 Est. Patient 14:22:19 [employer] Diya cobian [facility] CPT-62655 Level 3 Est. Patient 10:11:46 CDT Carlton rich MD [facility] CPT-72459 Level 3 Est. Patient 17:29:43 CDT Italo [facility] CPT-15229 Level 3 Est. Patient 11:58:06 CDT Italo [facility] CPT-31415 Level 4 Est. Patient 14:36:51 CDT Carlton rich MD [facility] CPT-89042 Level 3 Est. Patient 18:16:00 [employer] Blaine HERNANDEZ [facility] CPT-06000 Level 3 Est. Patient 09:45:49 [employer] Carlton rich MD [facility] CPT-79246 Level 3 Est. Patient 13:19:20 CDT Carlton rich MD [facility] CPT-41561 Level 3 Est. Patient 13:06:43 CDT Ridge tam DO [facility] CPT-80459 Level 3 Est. Patient 10:03:07 CDT Perez Mora MD [facility]-51328 Level 3 Est. Patient 19:50:35 [employer] Carlton rich MD [facility]-07392 Level 4 Est. Patient 18:05:01 [employer] Carlton rich MD [facility]-86557 Level 3 Est. Patient 10:45:55 [employer] Hugo Restrepo MD [facility]-03923 Level 3 Est. Patient 14:12:49 CDT Griffin HERNANDEZ [facility]-56697 Level 3 Est. Patient 17:37:24 CDT Carlton rich MD [facility] CPT-12808 Level 3 Est. Patient 16:51:54 CDT Carlton rich MD [facility]-94174 Level 3 Est. Patient 12:18:11 CDT Hugo Restrepo MD [facility]-02761 Level 3 Est. Patient 11:30:25 CDT Marcy crisostomo MD PhD [facility]-50556 Level 3 Est. Patient 12:00:47 [employer] Carlton rich MD [facility]-73835 Level 3 Est. Patient 16:31:06 [employer] Carlton rich MD [facility]-18209 Level 3 Est. Patient 16:23:24 [employer] Ridge tam DO [facility]-91583 Level 3 Est. Patient 12:34:12 CDT Carlton rich MD [facility] CPT-42461 Level 2 Est. Patient 15:43:33 CDT Robi armstrong MD [facility] CPT-51978 Level 4 Est. Patient 14:04:44 CDT Carlton rich MD [facility] CPT-13825 Level 3 Est. Patient 05:47:59 CDT Ridge tam DO [facility] CPT-43451 Level 3 Est. Patient 13:12:53 [employer] Carlton rich MD [facility] CPT-49104 Level 3 Est. Patient 14:26:53 CDT Hugo Restrepo MD [facility] Procedures Code Procedure Name Date Entry Date Standard Desc ription CPT-J0696 Rocephin 1gm Inj Solr 14:32:13 CDT CPT-J1020 Depo Medrol 60 mg (Methyl Prednisolone A cetate) 14:32:13 CDT CPT-J1100 Decadron 6mg (Dexamethasone) 14:32:13 CDT 2 CPT-14436 Hip bilat min 2V w AP pelvis 13:16:20 CDT 2 CPT-49497 Pelvis only 13:07:33 CDT CPT-52538 Spec Collection and Handling Fee 11:25:12 C DT CPT-83850 Fluzone Quadrivalent Intramuscular Suspe nsion 0.5 ML 14:31:55 CDT CPT-20854 Abx/Therapy Injection 13:28:47 [employer] CPT-J2930 Solu Medrol 125 mg (Methyl Prednisolone Sodium Succinate) 12:00:47 [employer] CPT-71258 Venipuncture Draw Fee 11:33:31 CDT CPT-31737 EKG Trac and Interp 11:21:09 CDT CPT-25299 Chest 2V Frontal and Lat 11:21:09 CDT 12/15 CPT-47582 Venipuncture Draw Fee 08:02:34 CDT CPT-61343 Chest 2V Frontal and Lat 05:47:59 CDT 06/05
--- OUTSIDE RECORDS SUMMARY | 2019-10-08 09:43 | XMS REPORT | Clinical Summary ---
Author Author Caitlin, Juliana Martinez Organization [facility] Address Unknown Phone Unavailable [...] MG ORAL TABLET 1 po qd ASPIRIN 82571018418 Active Carlton Hu MD Active PREDNISONE 20 MG ORAL TABLET 1 tab twice daily for 3 d ay, then one daily for three days PREDNISONE 42793905971 No Longer Active Carlton Hu MD Active AUGMENTIN 875-125 MG ORAL TABLET 1 po BID x 10 days 20 16/03/22 AMOXICILLIN-POT CLAVULANATE 60473906018 No Longer Active Elise Whitmore APRN Active TERBINAFINE HCL 250 MG ORAL TABLET 1 qDay for nail fungus 7 TERBINAFINE HCL 99990270048 No Longer Active Carlton Hu MD A ctive TUSSIONEX PENNKINETIC ER 10-8 MG/5ML ORAL SUSPENSION E XTENDED RELEASE 5ml po q12hr PRN Cough HYDROCOD POLST-CHLORPHEN POLST 10751849701 Active Carlton Hu MD Active AMOXICILLIN 500 MG ORAL CAPSULE 1 cap by mouth three times a day AMOXICILLIN 47851634975 No Longer Active Carlton Hu MD Active ELMIRON 100 MG ORAL CAPSULE 2 tablets in the am and 1 tablet at hs PENTOSAN POLYSULFATE SODIUM 74691139669 No Longer Active Robert Hu MD Active MUCINEX D 60-600 MG ORAL TABLET EXTENDED RELEASE 12 HOUR 1 t ab po q am PSEUDOEPHEDRINE-GUAIFENESIN 33936745037 No Longer Act nael Carlton Hu MD Active MUCINEX DM MAXIMUM STRENGTH 60-1200 MG ORAL TABLET EXT ENDED RELEASE 12 HOUR 1 tab po q am DEXTROMETHORPHAN-GUAIFENESIN 84363511308 No Longer Active Carlton Hu MD Active TUSSIONEX PENNKINETIC ER 10-8 MG/5ML ORAL SUSPENSION E XTENDED RELEASE 5ml po q12hr PRN Cough HYDROCOD POLST-CHLORPHEN POLST 5 3226012974 No Longer Active Carlton Hu MD Active POTASSIUM CHLORIDE ER 20 MEQ ORAL TABLET EXTENDED RELE ASE Take 1 by mouth 4 times daily for 7 days POTASSIUM CHLORIDE 44883179284 No Longer Active Carlton Hu MD Active ZITHROMAX 250 MG ORAL TABLET 2 po today, then 1 po q days 2-5 20 14/09/04 AZITHROMYCIN 04358466654 No Longer Active Elise Whitmore APRN Active TUSSIONEX PENNKINETIC ER 10-8 MG/5ML ORAL SUSPENSION E XTENDED RELEASE 5 ml twice a day as needed for cough HYDROCOD POLST-CHLORPH EN POLST 78243844330 No Longer Active Elise Whitmore APRN Active MONTELUKAST SODIUM 10 MG ORAL TABLET 1 po daily for Allergy MONTELUKAST SODIUM 47834492231 Active Carlton Hu MD Ac tive TUSSIONEX PENNKINETIC ER 10-8 MG/5ML ORAL SUSPENSION E XTENDED RELEASE 5ml po q12hr PRN Cough HYDROCOD POLST-CHLORPHEN POLST 5 6201762658 No Longer Active Hugo Restrepo MD Active GABAPENTIN 100 MG ORAL CAPSULE 1 po BID for fibromyalgia GABAPENTIN 75886891914 Active Carlton Hu MD Active LYRICA 100 MG ORAL CAPSULE Take 1 tab po BID for fibromyalgia 20 11/08/21 PREGABALIN 89591247966 No Longer Active Elise Whitmore APRN Active PROAIR HFA 108 (90 Base) MCG/ACT INHALATION AEROSOL SO LUTION 2 puffs four times a day as needed ALBUTEROL SULFATE 73568858720 Active Lyndsay Whitmore APRN Active PREDNISONE 20 MG ORAL TABLET 2 tabs daily for 3 days, 1 tab daily for 3 days, 1/2 tab daily for 2 days PREDNISONE 13767599200 No Longer Active Jillina Gege KHAN Active TUSSIONEX PENNKINETIC ER 10-8 MG/5ML ORAL SUSPENSION E XTENDED RELEASE 5 mL PO q 12 hrs PRN cough HYDROCOD POLST-CHLORPHEN POLST 819713 23910 No Longer Active Jillina Frazell [employer] Active FLUTICASONE PROPIONATE 50 MCG/ACT NASAL SUSPENSION 2 s prays each nostril daily until bottle is empty FLUTICASONE PROPIONATE 972828268 99 No Longer Active Jillina Frazell [employer] Active ASMANEX 60 METERED DOSES 220 MCG/INH INHALATION AEROSO L POWDER BREATH ACTIVATED 1 puff bid with rinse after MOMETASONE FUROATE 9493116 4102 No Longer Active Astridina Gege [employer] Active ZITHROMAX Z-REYNA 250 MG ORAL TABLET 2 today, then 1 daily for 4 d ays AZITHROMYCIN 71945568779 No Longer Active Elise Whitmore APRN Active TUSSIONEX PENNKINETIC ER 10-8 MG/5ML ORAL SUSPENSION E XTENDED RELEASE 5ml po q12hr PRN Cough HYDROCOD POLST-CHLORPHEN POLST 5 1920769222 No Longer Active Elise Whitmore APRN Active PREDNISONE 20 MG ORAL TABLET 2 tabs daily for 3 days, 1 tab daily for 3 days, 1/2 tab daily for 2 days PREDNISONE 33117537152 No Longer Active Diya Guerrerol [employer] Active AMOXICILLIN 500 MG ORAL CAPSULE 2 po BID x 10 days 201 09/29/08 AMOXICILLIN 97271641477 No Longer Active Diya De Guzman APRN Act nael SINGULAIR 10 MG ORAL TABLET 1 po qday for allergies 20 14/01/12 MONTELUKAST SODIUM 39404935623 No Longer Active Carlton Hu MD Active LEVAQUIN 500 MG ORAL TABLET 1 tablet by mouth daily 20 13/09/24 LEVOFLOXACIN 66351803365 No Longer Active Carlton Hu MD Acti ve FLUTICASONE PROPIONATE 50 MCG/ACT NASAL SUSPENSION 2 s prays each nostril daily for 2 weeks, then 1 spray each nostril daily. FLUTICASONE PROPIONATE 63553779222 Active Elise Whitmore APRN Active ZITHROMAX 250 MG ORAL TABLET 2 po today, then 1 po q days 2-5 20 13/08/10 AZITHROMYCIN 77163582615 No Longer Active Elise Whitmore APRN Active XANAX 0.5 MG ORAL TABLET one tablet by mouth daily prn anxiety 2015 ALPRAZOLAM 56117870145 Active Carlton Hu MD Active CYMBALTA 30 MG ORAL CAPSULE DELAYED RELEASE PARTICLES 1 cap by mouth daily for depression DULOXETINE HCL 82089232286 Active Carlton beltrán MD Active CEFDINIR 300 MG ORAL CAPSULE 1 po BID x 10 days CEFDINIR 76878139642 No Longer Active Carlton Hu MD Active ZOCOR 40 MG ORAL TABLET 1 tab by mouth daily SI MVASTATIN 54953765911 No Longer Active Carlton Hu MD Active CYCLOBENZAPRINE HCL 10 MG ORAL TABLET 1 tablet by mouth BID prn had pain CYCLOBENZAPRINE HCL 27067943944 No Longer Active Jayden Hu MD Active LEVOFLOXACIN 500 MG ORAL TABLET 1 tab PO daily x 10 days LEVOFLOXACIN 10166410354 No Longer Active Carlton Hu MD Acti ve PREDNISONE 20 MG ORAL TABLET 3 tab PO qd x 2d, 2 tab P O qd x 2d, 1 tab PO qd x 2d, 1/2 tab PO qd x 2d PREDNISONE 23911454005 No Lo nger Active Carlton Hu MD Active FLUTICASONE PROPIONATE 50 MCG/ACT NASAL SUSPENSION 1 t o 2 sprays each nostril daily FLUTICASONE PROPIONATE 92117736074 No Longer Ac tive Blaine HERNANDEZ Active CHERATUSSIN AC 100-10 MG/5ML ORAL SYRUP 1 tsp by mouth every 4 hours as needed for cough GUAIFENESIN-CODEINE 74856099154 No Longe r Active Blaine HERNANDEZ Active PROMETHAZINE-CODEINE 6.25-10 MG/5ML ORAL SYRUP 1 tsp b y mouth every 6 hours if needed for cough PROMETHAZINE-CODEINE 77094049492 No Longer Active Blaine HERNANDEZ Active CHERATUSSIN AC 100-10 MG/5ML ORAL SYRUP 1 tsp by mouth every 4 hours as needed for cough GUAIFENESIN-CODEINE 64618426000 No Longe r Active Blaine HERNANDEZ Active ZITHROMAX Z-REYNA 250 MG ORAL TABLET 2 today, then 1 daily for 4 d ays AZITHROMYCIN 71791876765 No Longer Active Columba Raida Act nael ZITHROMAX 250 MG ORAL TABLET 2 po today, then 1 po q days 2-5 20 14/03/21 AZITHROMYCIN 16656779574 No Longer Active Carlton Hu MD Active ZITHROMAX Z-REYNA 250 MG ORAL TABLET 2 today, then 1 daily for 4 d ays AZITHROMYCIN 12827109088 No Longer Active Columba Raida Act nael AUGMENTIN 875-125 MG ORAL TABLET 1 po BID x 10 days 13/01/20 AMOXICILLIN-POT CLAVULANATE 35572549263 No Longer Active Diya De Guzman APRN Active ZITHROMAX 250 MG ORAL TABLET 2 po today, then 1 po q days 2-5 20 12/08/14 AZITHROMYCIN 89139349780 No Longer Active Carlton Hu MD Active TRAMADOL HCL 50 MG ORAL TABLET 1 po tid with ES Tylenol TRAMADOL HCL 12299393104 Active Carlton Hu MD Active PREMARIN 0.625 MG ORAL TABLET TAKE 1 TAB BY MOUTH DAILY ESTROGENS CONJUGATED 51727293794 No Longer Active Ridge Bess DO A ctive CYMBALTA 30 MG ORAL CAPSULE DELAYED RELEASE PARTICLES 1 cap by mouth daily DULOXETINE HCL 96574156198 No Longer Active Ridge tam DO Active AMOXICILLIN 500 MG ORAL CAPSULE 1 tab by mouth 3 times daily x 10 days AMOXICILLIN 16028402755 No Longer Active Carlton bustamante MD Active AMOXICILLIN 500 MG ORAL CAPSULE 1 tab by mouth 3 times daily x 10 days AMOXICILLIN 50474197304 No Longer Active Carlton bustamante MD Active PROMETHAZINE-CODEINE 6.25-10 MG/5ML ORAL SYRUP 1 tsp b y mouth every 8 hours prn cough PROMETHAZINE-CODEINE 97416138140 No Longer Acti ve Carlton Hu MD Active MEDROL 4 MG ORAL TABLET THERAPY PACK 6 pills x 1 day, then 5 pills x 1 day then 4 pills x 1 day, then 3 pills x 1 day, then 2 pills x 1 day, then 1 pill x 1 day, then stop METHYLPREDNISOLONE 14288740961 No Long er Active Perez Mora MD Active AZITHROMYCIN 250 MG ORAL TABLET 2 po qd x 1 day, then 1 po q d x 4 days AZITHROMYCIN 27562135396 No Longer Active Perez Ambriz MD Active SYMBICORT 160-4.5 MCG/ACT INHALATION AEROSOL 2 puffs bid wit h rinse after BUDESONIDE-FORMOTEROL FUMARATE 38921738825 N o Longer Active Perez Mora MD Active LYRICA 75 MG ORAL CAPSULE TAKE 1 CAPSULE BY MOUTH TWICE DAILY PREGABALIN 27058237962 No Longer Active Carlton Hu MD Acti ve TOPAMAX 25 MG ORAL TABLET 1 qHS x 1 week, then 1 BID x 1 week, then 1 qAM and 2 qHS x 1 week, then 2 BID (migraine prevention) T OPIRAMATE 22169580641 No Longer Active Jerica FUENTES Active TOPAMAX 50 MG ORAL TABLET take 1 tab po BID for migraines. 07/02 TOPIRAMATE 87915611737 No Longer Active Jericacatrachita FUENTES Active TOPAMAX 100 MG ORAL TABLET Take 1 tablet po bid TO PIRAMATE 31435867086 Active Carlton Hu MD Active TRIAMCINOLONE ACETONIDE 0.1 % EXTERNAL CREAM apply three roger es daily prn rash TRIAMCINOLONE ACETONIDE 31756946966 No Longer Active Carlton Hu MD Active PAXIL 40 MG ORAL TABLET take 1 tab po qday for depression 0 PAROXETINE HCL 58745940291 Active Carlton Hu MD Active CHERATUSSIN AC 100-10 MG/5ML ORAL SYRUP 5ml po q6hr PRN Cough 20 13/04/14 GUAIFENESIN-CODEINE 56929747768 No Longer Active Carlton Hu MD Active MEDROL 4 MG ORAL TABLET THERAPY PACK 6 tabs on day 1, 5 tabs on day 2, 4 tabs on day 3, 3 tabs on day 4, 2 tabs on day 5, 1 tab on day 6 2013 METHYLPREDNISOLONE 81854676556 No Longer Active Perez Mora MD Active AZITHROMYCIN 250 MG ORAL TABLET 2 po qd x 1 day, then 1 po q d x 4 days AZITHROMYCIN 78943874022 No Longer Active Perez Ambriz MD Active PROPRANOLOL HCL 60 MG ORAL TABLET 1 PO Q D PROPRANOLOL HCL 44335636475 No Longer Active Perez Mora MD Activ e CHERATUSSIN AC 100-10 MG/5ML ORAL SYRUP take one tsp po Q 6h ours prn cough GUAIFENESIN-CODEINE 22970707590 No Longer Active Zia Mora MD Active AUGMENTIN 875-125 MG ORAL TABLET 1 tab by mouth twice daily with food AMOXICILLIN-POT CLAVULANATE 04730508403 No Longer Act nael Perez Mora MD Active CHERATUSSIN AC 100-10 MG/5ML ORAL SYRUP 1 tsp by mouth every 4 hours as needed for cough GUAIFENESIN-CODEINE 85927341302 No Longe r Active Hugo Restrepo MD Active ACETAMINOPHEN-CODEINE #3 300-30 MG ORAL TABLET 1 PO Q 4-6 HRS SD N PAIN ACETAMINOPHEN-CODEINE 25319484466 No Longer Active Hugo Restreop MD Active LEVAQUIN 500 MG ORAL TABLET take one po QD LEVO FLOXACIN 61324238275 No Longer Active Griffin HERNANDEZ Active PREDNISONE 20 MG ORAL TABLET Take 3 tabs daily for 3 d ays, 2 tabs daily for 3 days, 1 tab daily for 3 days, 1/2 tab daily for 3 days 11/07 PREDNISONE 91817103491 No Longer Active Carlton Hu MD Acti ve AVELOX 400 MG ORAL TABLET 1 tab by mouth daily MOXIFLOXACIN HCL 26577949078 No Longer Active Carlton Hu MD Active CHERATUSSIN AC 100-10 MG/5ML ORAL SYRUP 1 tsp by mouth every 4 hours as needed for cough GUAIFENESIN-CODEINE 08900932279 No Longe r Active Hugo Restrepo MD Active AVELOX 400 MG ORAL TABLET 1 tab by mouth daily MOXIFLOXACIN HCL 12461191610 No Longer Active Marcy De La Rosa MD PhD Active TERBINAFINE HCL 250 MG ORAL TABLET 1 qDay T ERBINAFINE HCL 01436638926 No Longer Active Marcy De La Rosa MD PhD Active CHERATUSSIN AC 100-10 MG/5ML ORAL SYRUP 1 tsp by mouth every 4 hours as needed for cough GUAIFENESIN-CODEINE 03570545263 No Longe r Active Marcy De La Rosa MD PhD Active AVELOX 400 MG ORAL TABLET 1 tab by mouth daily MOXIFLOXACIN HCL 30632714093 No Longer Active Marcy De La Rosa MD PhD Active HYDROCODONE-ACETAMINOPHEN 5-325 MG ORAL TABLET 1 po q 6hr PRN co ugh HYDROCODONE-ACETAMINOPHEN 12259159485 No Longer Active Marcy De La Rosa MD PhD Active PREDNISONE 20 MG ORAL TABLET 2 tabs daily for 3 days, 1 tab daily for 3 days, 1/2 tab daily for 2 days PREDNISONE 87408832248 No Longer Active Carlton Hu MD Active CEFDINIR 300 MG ORAL CAPSULE by mouth twice a day 2011 CEFDINIR 70253919449 No Longer Active Carlton Hu MD Acti ve HYDROCHLOROTHIAZIDE 25 MG ORAL TABLET 1 TAB PO DAILY HYDROCHLOROTHIAZIDE 88039741929 Active Carlton Hu MD A ctive ACETAMINOPHEN-CODEINE #3 300-30 MG ORAL TABLET 1 tablet po q 4-6 hrs prn pain ACETAMINOPHEN-CODEINE 95517190371 No Longer Active Ridge Bess DO Active ZITHROMAX 250 MG ORAL TABLET 2 po today, then 1 po q days 2-5 20 03/07/07 AZITHROMYCIN 95594656644 No Longer Active Carlton Hu MD Active CHERATUSSIN AC 100-10 MG/5ML ORAL SYRUP take 1 tsp po q4-6 h ours prn cough GUAIFENESIN-CODEINE 93667687455 No Longer Active Jayden Hu MD Active ACETAMINOPHEN-CODEINE #3 300-30 MG ORAL TABLET 1 PO Q 4-6 HR PRN PAIN ACETAMINOPHEN-CODEINE 76920521966 No Longer Active Da raimundo Hu MD Active LORTAB 7.5-500 MG/15ML ORAL ELIXIR 7.5 ml po q 4 hour prn cough HYDROCODONE-ACETAMINOPHEN 39314586910 No Longer Active Carlton Hu MD Active PREDNISONE 20 MG ORAL TABLET 1 po bid 3 days, then 1 po q day 3 days PREDNISONE 46370909715 No Longer Active Carlton Hu MD Active CEFDINIR 300 MG ORAL CAPSULE by mouth twice a day 2011 CEFDINIR 63089724137 No Longer Active Carlton Hu MD Acti ve CEFDINIR 300 MG ORAL CAPSULE by mouth twice a day 2010 CEFDINIR 13741793751 No Longer Active Carlton Hu MD Acti ve CEFDINIR 300 MG ORAL CAPSULE by mouth twice a day 2010 CEFDINIR 51506442840 No Longer Active Carlton Hu MD Acti ve TESSALON PERLES 100 MG ORAL CAPSULE 1 tablet by mouth 3 times daily as needed for cough BENZONATATE 00381184043 No Longer Active Carlton Hu MD Active CEFDINIR 300 MG ORAL CAPSULE by mouth twice a day 2010 CEFDINIR 85617871780 No Longer Active Carlton Hu MD Acti ve ZITHROMAX Z-REYNA 250 MG ORAL TABLET 2 today, then 1 daily for 4 d ays AZITHROMYCIN 73431673459 No Longer Active Hugo Restrepo MD Active TESSALON PERLES 100 MG ORAL CAPSULE 1 tablet by mouth 3 times daily as needed for cough TESSALON PERLES 100 MG ORAL CAPSULE 86803 7 BENZONATATE Inactive PREDNISONE 20 MG ORAL TABLET 1 po bid 3 days, then 1 po q day 3 days PREDNISONE 20 MG ORAL TABLET 141795 PREDNISONE [place] ctive LORTAB 7.5-500 MG/15ML ORAL [...] cough CHERATUSSIN AC 100-10 MG/5ML ORAL SYRUP 558471 GUAIFENESIN-CODEINE Inactive ACETAMINOPHEN-CODEINE #3 300-30 MG ORAL TABLET 1 tablet po q 4-6 hrs prn pain ACETAMINOPHEN-CODEINE #3 300-30 MG ORAL TABLET ACETAMINOPHEN-CODEINE Inactive HYDROCODONE-ACETAMINOPHEN 5-325 MG ORAL TABLET 1 po q 6hr PRN co ugh HYDROCODONE-ACETAMINOPHEN 5-325 MG ORAL TABLET 910224 HYDROCODONE-ACETAMINOPHEN Inactive AVELOX 400 MG ORAL TABLET 1 tab by mouth daily AVELOX 400 MG ORAL TABLET 831131 MOXIFLOXACIN HCL Inactive CHERATUSSIN AC 100-10 MG/5ML ORAL SYRUP 1 tsp by mouth every 4 hours as needed for cough CHERATUSSIN AC 100-10 MG/5ML ORAL SYRUP 9 94845 GUAIFENESIN-CODEINE Inactive TERBINAFINE HCL 250 MG ORAL TABLET 1 qDay 07/08 TERBINAFINE HCL 250 MG ORAL TABLET 401118 TERBINAFINE HCL Inactive CHERATUSSIN AC 100-10 MG/5ML ORAL SYRUP 1 tsp by mouth every 4 hours as needed for cough CHERATUSSIN AC 100-10 MG/5ML ORAL SYRUP 9 05366 GUAIFENESIN-CODEINE Inactive ACETAMINOPHEN-CODEINE #3 300-30 MG ORAL TABLET 1 PO Q 4-6 HRS SD N PAIN ACETAMINOPHEN-CODEINE #3 300-30 MG ORAL TABLET ACETAMINOPHEN-CODEINE Inactive CHERATUSSIN AC 100-10 MG/5ML ORAL SYRUP 1 tsp by mouth every 4 hours as needed for cough CHERATUSSIN AC 100-10 MG/5ML ORAL SYRUP 9 91189 GUAIFENESIN-CODEINE Inactive AUGMENTIN 875-125 MG ORAL TABLET 1 tab by mouth twice daily with food AUGMENTIN 875-125 MG ORAL TABLET 434918 AMOXICIL MADELINE-POT CLAVULANATE Inactive CHERATUSSIN AC 100-10 MG/5ML ORAL SYRUP take one tsp po Q 6h ours prn cough CHERATUSSIN AC 100-10 MG/5ML ORAL SYRUP 140767 GUAIFENESIN-CODEINE Inactive PROPRANOLOL HCL 60 MG ORAL TABLET 1 PO Q D PROPRANOLOL HCL 60 MG ORAL TABLET 215681 PROPRANOLOL HCL Inactive TOPAMAX 50 MG ORAL TABLET take 1 tab po BID for migraines. 07/02 TOPAMAX 50 MG ORAL TABLET 200825 TOPIRAMATE Inacti ve TOPAMAX 25 MG ORAL TABLET 1 qHS x 1 week, then 1 BID x 1 week, then 1 qAM and 2 qHS x 1 week, then 2 BID (migraine prevention) TOPAMAX 25 MG ORAL TABLET 971754 TOPIRAMATE Inactive LYRICA 75 MG ORAL CAPSULE TAKE 1 CAPSULE BY MOUTH TWICE DAILY LYRICA 75 MG ORAL CAPSULE PREGABALIN Inactive SYMBICORT 160-4.5 MCG/ACT INHALATION AEROSOL 2 puffs bid wit h rinse after SYMBICORT 160-4.5 MCG/ACT INHALATION AEROSOL BUDESONIDE- FORMOTEROL FUMARATE Inactive PROMETHAZINE-CODEINE 6.25-10 MG/5ML ORAL SYRUP 1 tsp b y mouth every 8 hours prn cough PROMETHAZINE-CODEINE 6.25-10 MG/ 5ML ORAL SYRUP 214981 PROMETHAZINE-CODEINE Inactive CYMBALTA 30 MG ORAL CAPSULE DELAYED RELEASE PARTICLES 1 cap by mouth daily CYMBALTA 30 MG ORAL CAPSULE DELAYED RELE ASE PARTICLES 127451 DULOXETINE HCL Inactive PREMARIN 0.625 MG ORAL TABLET TAKE 1 TAB BY MOUTH DAILY PREMARIN 0.625 MG ORAL TABLET ESTROGENS CONJUGATED Inactive CHERATUSSIN AC 100-10 MG/5ML ORAL SYRUP 1 tsp by mouth every 4 hours as needed for cough CHERATUSSIN AC 100-10 MG/5ML ORAL SYRUP 9 08891 GUAIFENESIN-CODEINE Inactive PROMETHAZINE-CODEINE 6.25-10 MG/5ML ORAL SYRUP 1 tsp b y mouth every 6 hours if needed for cough PROMETHAZINE-CODEINE 6.25-10 MG/5ML ORAL SYRUP 493001 PROMETHAZINE-CODEINE Inactive CHERATUSSIN AC 100-10 MG/5ML ORAL SYRUP 1 tsp by mouth every 4 hours as needed for cough CHERATUSSIN AC 100-10 MG/5ML ORAL SYRUP 9 28847 GUAIFENESIN-CODEINE Inactive FLUTICASONE PROPIONATE 50 MCG/ACT NASAL SUSPENSION 1 t o 2 sprays each nostril daily FLUTICASONE PROPIONATE 50 MCG/AC T NASAL SUSPENSION 5458415 FLUTICASONE PROPIONATE Inactive PREDNISONE 20 MG ORAL TABLET 3 tab PO qd x 2d, 2 tab P O qd x 2d, 1 tab PO qd x 2d, 1/2 tab PO qd x 2d PREDNISONE 20 MG ORAL TAB LET 335688 PREDNISONE Inactive LEVOFLOXACIN 500 MG ORAL TABLET 1 tab PO daily x 10 days LEVOFLOXACIN 500 MG ORAL TABLET 690154 LEVOFLOXACIN Inactive CYCLOBENZAPRINE HCL 10 MG ORAL TABLET 1 tablet by mouth BID prn had pain CYCLOBENZAPRINE HCL 10 MG ORAL TABLET 361137 CYCLOBENZAPRINE HCL Inactive ZOCOR 40 MG ORAL TABLET 1 tab by mouth daily 4 ZOCOR 40 MG ORAL TABLET 808650 SIMVASTATIN Inactive TUSSIONEX PENNKINETIC ER 10-8 MG/5ML [...] FLUTICASONE PROPIO EFE 50 MCG/ACT NASAL SUSPENSION 6049955 FLUTICASONE PROPIONATE Inactive TUSSIONEX PENNKINETIC ER 10-8 [...] three days PREDNISONE 20 MG ORAL TABLET 248149 PREDNIS ONE Inactive ZITHROMAX Z-REYNA 250 MG ORAL TABLET 2 today, then 1 daily for 4 d ays ZITHROMAX Z-REYNA 250 MG ORAL TABLET 283789 AZITHROMYCIN Inactive CEFDINIR 300 MG ORAL CAPSULE [...] 20 03/07/07 ZITHROMAX 250 MG ORAL TABLET 054416 AZITHROMYCIN [place] ctive CEFDINIR 300 MG ORAL CAPSULE by mouth twice a day 2011 CEFDINIR 300 MG ORAL CAPSULE 228174 CEFDINIR Inactive PREDNISONE 20 MG ORAL TABLET 2 tabs daily for 3 days, 1 tab daily for 3 days, 1/2 tab daily for 2 days PREDNISONE 20 MG ORAL T ABLET 305329 PREDNISONE Inactive AVELOX 400 MG ORAL TABLET 1 tab by mouth daily AVELOX 400 MG ORAL TABLET 660676 MOXIFLOXACIN HCL Inactive AVELOX 400 MG ORAL TABLET 1 tab by mouth daily AVELOX 400 MG ORAL TABLET 002479 MOXIFLOXACIN HCL Inactive PREDNISONE 20 MG ORAL TABLET Take 3 tabs daily for 3 d ays, 2 tabs daily for 3 days, 1 tab daily for 3 days, 1/2 tab daily for 3 days 11/07 PREDNISONE 20 MG ORAL TABLET 329621 PREDNISONE Inactive LEVAQUIN 500 MG ORAL TABLET take one po QD LEVAQUIN 500 MG ORAL TABLET 695490 LEVOFLOXACIN Inactive AZITHROMYCIN 250 MG ORAL TABLET 2 po qd x 1 day, then 1 po q d x 4 days AZITHROMYCIN 250 MG ORAL TABLET 598193 AZITHROMY GIOVANNI Inactive MEDROL 4 MG ORAL TABLET THERAPY PACK 6 tabs on day 1, 5 tabs on day 2, 4 tabs on day 3, 3 tabs on day 4, 2 tabs on day 5, 1 tab on day 6 2013 MEDROL 4 MG ORAL TABLET THERAPY PACK 279488 METHYLPREDNISOLONE [place] ctive CHERATUSSIN AC 100-10 MG/5ML ORAL SYRUP 5ml po q6hr PRN Cough 20 13/04/14 CHERATUSSIN AC 100-10 MG/5ML ORAL SYRUP 321785 GUAIFENE SIN-CODEINE Inactive TRIAMCINOLONE ACETONIDE 0.1 % EXTERNAL CREAM apply three roger es daily prn rash TRIAMCINOLONE ACETONIDE 0.1 % EXTERNAL CREAM 101 4314 TRIAMCINOLONE ACETONIDE Inactive AZITHROMYCIN 250 MG ORAL TABLET 2 po qd x 1 day, then 1 po q d x 4 days AZITHROMYCIN 250 MG ORAL TABLET 339866 AZITHROMY GIOVANNI Inactive MEDROL 4 MG ORAL TABLET THERAPY PACK 6 pills x 1 day, then 5 pills x 1 day then 4 pills x 1 day, then 3 pills x 1 day, then 2 pills x 1 day, then 1 pill x 1 day, then stop MEDROL 4 MG ORAL TABLET THERAPY PACK 291181 METHYLPREDNISOLONE Inactive AMOXICILLIN 500 MG ORAL CAPSULE 1 tab by mouth 3 times daily x 10 days AMOXICILLIN 500 MG ORAL CAPSULE 121034 AMOXICILL IN Inactive AMOXICILLIN 500 MG ORAL CAPSULE 1 tab by mouth 3 times daily x 10 days AMOXICILLIN 500 MG ORAL CAPSULE 596479 AMOXICILL IN Inactive ZITHROMAX 250 MG ORAL TABLET 2 po today, then 1 po q days 2-5 20 12/08/14 ZITHROMAX 250 MG ORAL TABLET 978651 AZITHROMYCIN [place] ctive AUGMENTIN 875-125 MG ORAL TABLET 1 po BID x 10 days 20 13/01/20 AUGMENTIN 875-125 MG ORAL TABLET 919031 AMOXICILLIN-POT CLAVULANATE Inactive ZITHROMAX Z-REYNA 250 MG ORAL TABLET 2 today, then 1 daily for 4 d ays ZITHROMAX Z-REYNA 250 MG ORAL TABLET 491142 AZITHROMYCIN Inactive ZITHROMAX 250 MG ORAL TABLET 2 po today, then 1 po q days 2-5 20 14/03/21 ZITHROMAX 250 MG ORAL TABLET 855597 AZITHROMYCIN [place] ctive ZITHROMAX Z-REYNA 250 MG ORAL TABLET 2 today, then 1 daily for 4 d ays ZITHROMAX Z-REYNA 250 MG ORAL TABLET 225343 AZITHROMYCIN Inactive CEFDINIR 300 MG ORAL CAPSULE 1 po BID x 10 days 06/21 CEFDINIR 300 MG ORAL CAPSULE 002175 CEFDINIR Inactive ZITHROMAX 250 MG ORAL TABLET 2 po today, then 1 po q days 2-5 20 13/08/10 ZITHROMAX 250 MG ORAL TABLET 466195 AZITHROMYCIN [place] ctive LEVAQUIN 500 MG ORAL TABLET 1 tablet by mouth daily 13/09/24 LEVAQUIN 500 MG ORAL TABLET 962934 LEVOFLOXACIN Inactive SINGULAIR 10 MG ORAL TABLET 1 po qday for allergies 20 14/01/12 SINGULAIR 10 MG ORAL TABLET 845811 MONTELUKAST SODIUM Inactive AMOXICILLIN 500 MG ORAL CAPSULE 2 po BID x 10 days 201 09/29/08 AMOXICILLIN 500 MG ORAL CAPSULE 786137 AMOXICILLIN Inactive PREDNISONE 20 MG ORAL TABLET 2 tabs daily for 3 days, 1 tab daily for 3 days, 1/2 tab daily for 2 days PREDNISONE 20 MG ORAL T ABLET 402691 PREDNISONE Inactive ZITHROMAX Z-REYNA 250 MG ORAL TABLET 2 today, then 1 daily for 4 d ays ZITHROMAX Z-REYNA 250 MG ORAL TABLET 473078 AZITHROMYCIN Inactive PREDNISONE 20 MG ORAL TABLET 2 tabs daily for 3 days, 1 tab daily for 3 days, 1/2 tab daily for 2 days PREDNISONE 20 MG ORAL T ABLET 449090 PREDNISONE Inactive ZITHROMAX 250 MG ORAL TABLET 2 po today, then 1 po q days 2-5 20 14/09/04 ZITHROMAX 250 MG ORAL TABLET 206923 AZITHROMYCIN [place] ctive AMOXICILLIN 500 MG ORAL CAPSULE 1 cap by mouth three times a day AMOXICILLIN 500 MG ORAL CAPSULE 535070 AMOXICILLIN Inactive TERBINAFINE HCL 250 MG ORAL TABLET 1 qDay for nail fungus 7 TERBINAFINE HCL 250 MG ORAL TABLET 515953 TERBINAFINE HCL Inact nael AUGMENTIN 875-125 MG ORAL TABLET 1 po BID x 10 days 16/03/22 AUGMENTIN 875-125 MG ORAL TABLET 612748 AMOXICILLIN-POT CLAVULANATE Inactive Vital Signs Date Name [...] - Chem istry sodium, serum 132 mmol/L 646-588 0265/07/12 potassium, serum 2.7 mmol/L 3.5-5.2 chloride, serum 93 mmol/L 98-107 carbon dioxide, venous blood 30.8 mmol/L 21.0-32 .0 blood glucose 107 mg/dL 65-110 calcium, serum 9.3 mg/dL 8.5-10.1 urea nitrogen, blood 12 mg/dL 7-18 creatinine, serum 1.00 mg/dL 0.60-1.30 sodium, serum 142 mmol/L 563-506 3242/07/17 potassium, serum 4.2 mmol/L 3.5-5.2 chloride, serum 106 mmol/L 98-107 carbon dioxide, venous blood 29.9 mmol/L 21.0-32 .0 blood glucose 108 mg/dL 65-110 calcium, serum 9.1 mg/dL 8.5-10.1 urea nitrogen, blood 11 mg/dL 7-18 creatinine, serum 0.81 mg/dL 0.60-1.30 Lab Report: Rapid Strep - Lab Microbial identification kit, rapid strep method Negative Negative Encounters Code Encounter Date Provider Facility [id number] Level 4 Est. 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-[id number] Level 3 Est. 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-62562 Level 3 Est. 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-12532 Level 3 Est. Patient 12:17:50 CDT Hugo Restrepo MD [facility]-19690 Level 3 Est. Patient 13:42:38 CDT Italo [facility]-17760 Level 3 Est. Patient 13:23:51 CDT Diya cobian [facility]-72070 Level 3 Est. 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 Patient 10:11:46 CDT Carltno rich MD [facility]-35559 Level 3 Est. Patient 17:29:43 CDT Italo [facility]-51943 Level 3 Est. Patient 11:58:06 CDT Italo [facility]-98962 Level 4 Est. Patient 14:36:51 CDT Carlton rich MD [facility]-54240 Level 3 Est. Patient 18:16:00 MACHINE OPERATOR HOP PICKER Blaine Freeman [facility] CPT-05220 Level 3 Est. Patient 09:45:49 MACHINE OPERATOR HOP PICKER Carlton rich MD [facility] CPT-16686 Level 3 Est. Patient 13:19:20 CDT Carlton rich MD [facility] CPT-24756 Level 3 Est. Patient 13:06:43 CDT Ridge tam DO [facility] CPT-83466 Level 3 Est. Patient 10:03:07 CDT Perez Mora MD [facility] CPT-05513 Level 3 Est. Patient 19:50:35 MACHINE OPERATOR HOP PICKER Carlton rich MD [facility]-60200 Level 4 Est. Patient 18:05:01 MACHINE OPERATOR HOP PICKER Carlton rich MD [facility] CPT-58407 Level 3 Est. Patient 10:45:55 MACHINE OPERATOR HOP PICKER Hugo Restrepo MD [facility] CPT-97038 Level 3 Est. Patient 14:12:49 CDT Griffin lincoln [facility] CPT-87080 Level 3 Est. Patient 17:37:24 CDT Carlton rich MD [facility] CPT-03097 Level 3 Est. Patient 16:51:54 CDT Carlton rich MD [facility] CPT-40551 Level 3 Est. Patient 12:18:11 CDT Hugo Restrepo MD [facility] CPT-73983 Level 3 Est. Patient 11:30:25 CDT Marcy crisostomo MD PhD [facility]-10965 Level 3 Est. Patient 12:00:47 MACHINE OPERATOR HOP PICKER Carlton rich MD [facility] CPT-14507 Level 3 Est. Patient 16:31:06 MACHINE OPERATOR HOP PICKER Carlton rich MD [facility] CPT-10945 Level 3 Est. Patient 16:23:24 MACHINE OPERATOR HOP PICKER Ridge tam [facility] CPT-90137 Level 3 Est. Patient 12:34:12 CDT Carlton rich MD [facility] CPT-85326 Level 2 Est. Patient 15:43:33 CDT Robi armstrong MD [facility] CPT-82931 Level 4 Est. Patient 14:04:44 CDT Carlton rich MD [facility] CPT-37989 Level 3 Est. Patient 05:47:59 CDT Rdige tam [facility] CPT-67936 Level 3 Est. Patient 13:12:53 MACHINE OPERATOR HOP PICKER Carlton rich MD [facility] CPT-34571 Level 3 Est. Patient 14:26:53 CDT Hugo [...] CPT-J1100 Decadron 6mg (Dexamethasone) 14:32:13 CDT 2 CPT-26407 Hip bilat min 2V w AP pelvis 13:16:20 CDT 2 CPT-66731 Pelvis only 13:07:33 CDT CPT-86418 Spec Collection and Handling Fee 11:25:12 C DT CPT-16641 Fluzone Quadrivalent Intramuscular Suspe nsion 0.5 ML 14:31:55 CDT CPT-23982 Abx/Therapy Injection 13:28:47 MACHINE OPERATOR HOP PICKER CPT-J2930 Solu Medrol 125 mg (Methyl Prednisolone Sodium Succinate) 12:00:47 MACHINE OPERATOR HOP PICKER CPT-25417 Venipuncture Draw Fee 11:33:31 CDT CPT-78075 EKG Trac and Interp 11:21:09 CDT CPT-30154 Chest 2V Frontal and Lat 11:21:09 CDT 12/15 CPT-92619 Venipuncture Draw Fee 08:02:34 CDT CPT-29445 Chest 2V Frontal and Lat 05:47:59 CDT 06/05
--- OUTSIDE RECORDS SUMMARY | 2019-10-08 09:43 | XMS REPORT | Clinical Summary ---
Author Author Caitlin, Juliana Martinez Organization [facility] Address Unknown Phone Unavailable Allergies, [...] x 10 days 20 16/03/22 AMOXICILLIN-POT CLAVULANATE [id number] Active Elise Whitmore APRN Active TERBINAFINE HCL 250 MG ORAL TABLET 1 qDay for nail fungus 7 TERBINAFINE HCL 68059235310 No Longer Active Carlton Hu MD A ctive TUSSIONEX PENNKINETIC ER 10-8 MG/5ML ORAL SUSPENSION E XTENDED RELEASE 5ml po q12hr PRN Cough HYDROCOD POLST-CHLORPHEN POLST 85903606859 Active Carlton Hu MD Active PREDNISONE 20 MG ORAL TABLET 1 tab twice daily for 3 d ay, then one daily for three days PREDNISONE 15420430615 Active Carlton Hu MD Active AMOXICILLIN 500 MG ORAL CAPSULE 1 cap by mouth three times a day AMOXICILLIN 30469324295 No Longer Active Carlton Hu MD Active ELMIRON 100 MG ORAL CAPSULE 2 tablets in the am and 1 tablet at hs PENTOSAN POLYSULFATE SODIUM 66007190224 No Longer Active Robert Hu MD Active MUCINEX D 60-600 MG ORAL TABLET EXTENDED RELEASE 12 HOUR 1 t ab po q am PSEUDOEPHEDRINE-GUAIFENESIN 72070268165 No Longer Act nael Carlton Hu MD Active MUCINEX DM MAXIMUM STRENGTH 60-1200 MG ORAL TABLET EXT ENDED RELEASE 12 HOUR 1 tab po q am DEXTROMETHORPHAN-GUAIFENESIN 21671812261 No Longer Active Carlton Hu MD Active TUSSIONEX PENNKINETIC ER 10-8 MG/5ML ORAL SUSPENSION E XTENDED RELEASE 5ml po q12hr PRN Cough HYDROCOD POLST-CHLORPHEN POLST 5 6306050591 No Longer Active Carlton Hu MD Active POTASSIUM CHLORIDE ER 20 MEQ ORAL TABLET EXTENDED RELE ASE Take 1 by mouth 4 times daily for 7 days POTASSIUM CHLORIDE 73966120703 No Longer Active Carlton Hu MD Active ZITHROMAX 250 MG ORAL TABLET 2 po today, then 1 po q days 2-5 20 14/09/04 AZITHROMYCIN 46212172959 No Longer Active Elise Whitmore APRN Active TUSSIONEX PENNKINETIC ER 10-8 MG/5ML ORAL SUSPENSION E XTENDED RELEASE 5 ml twice a day as needed for cough HYDROCOD POLST-CHLORPH EN POLST 10673151623 No Longer Active Elise Whitmore APRN Active MONTELUKAST SODIUM 10 MG ORAL TABLET 1 po daily for Allergy MONTELUKAST SODIUM 42335768619 Active Carlton Hu MD Ac tive TUSSIONEX PENNKINETIC ER 10-8 MG/5ML ORAL SUSPENSION E XTENDED RELEASE 5ml po q12hr PRN Cough HYDROCOD POLST-CHLORPHEN POLST 5 7911793514 No Longer Active Hugo Restrepo MD Active GABAPENTIN 100 MG ORAL CAPSULE 1 po BID for fibromyalgia GABAPENTIN 59702991163 Active Carlton Hu MD Active LYRICA 100 MG ORAL CAPSULE Take 1 tab po BID for fibromyalgia 20 11/08/21 PREGABALIN 93920349258 No Longer Active Elise Whitmore APRN Active PROAIR HFA 108 (90 Base) MCG/ACT INHALATION AEROSOL SO LUTION 2 puffs four times a day as needed ALBUTEROL SULFATE 29923783554 Active Lyndsay Whitmore APRN Active PREDNISONE 20 MG ORAL TABLET 2 tabs daily for 3 days, 1 tab daily for 3 days, 1/2 tab daily for 2 days PREDNISONE 80269580829 No Longer Active Venullina Gege RICEN Active TUSSIONEX PENNKINETIC ER 10-8 MG/5ML ORAL SUSPENSION E XTENDED RELEASE 5 mL PO q 12 hrs PRN cough HYDROCOD POLST-CHLORPHEN POLST 144423 59200 No Longer Active Jillina Frazell BIOLOGICAL AIDE Active FLUTICASONE PROPIONATE 50 MCG/ACT NASAL SUSPENSION 2 s prays each nostril daily until bottle is empty FLUTICASONE PROPIONATE 144364539 99 No Longer Active Jillina Frazell BIOLOGICAL AIDE Active ASMANEX 60 METERED DOSES 220 MCG/INH INHALATION AEROSO L POWDER BREATH ACTIVATED 1 puff bid with rinse after MOMETASONE FUROATE 4875398 4102 No Longer Active Jillina Frazell BIOLOGICAL AIDE Active ZITHROMAX Z-REYNA 250 MG ORAL TABLET 2 today, then 1 daily for 4 d ays AZITHROMYCIN 49865725480 No Longer Active Elise Whitmore APRN Active TUSSIONEX PENNKINETIC ER 10-8 MG/5ML ORAL SUSPENSION E XTENDED RELEASE 5ml po q12hr PRN Cough HYDROCOD POLST-CHLORPHEN POLST 5 1316308221 No Longer Active Elise Whitmore APRN Active PREDNISONE 20 MG ORAL TABLET 2 tabs daily for 3 days, 1 tab daily for 3 days, 1/2 tab daily for 2 days PREDNISONE 62452376276 No Longer Active Diya De Guzman APRN Active AMOXICILLIN 500 MG ORAL CAPSULE 2 po BID x 10 days 201 09/29/08 AMOXICILLIN 25299909948 No Longer Active Jillina Gege RICEN Act nael SINGULAIR 10 MG ORAL TABLET 1 po qday for allergies 20 14/01/12 MONTELUKAST SODIUM 18800054232 No Longer Active Carlton Hu MD Active LEVAQUIN 500 MG ORAL TABLET 1 tablet by mouth daily 20 13/09/24 LEVOFLOXACIN 56609893974 No Longer Active Carlton Hu MD Acti ve FLUTICASONE PROPIONATE 50 MCG/ACT NASAL SUSPENSION 2 s prays each nostril daily for 2 weeks, then 1 spray each nostril daily. FLUTICASONE PROPIONATE 00896214459 Active Elise Whitmore APRN Active ZITHROMAX 250 MG ORAL TABLET 2 po today, then 1 po q days 2-5 20 13/08/10 AZITHROMYCIN 82961735024 No Longer Active Elise Whitmore APRN Active XANAX 0.5 MG ORAL TABLET one tablet by mouth daily prn anxiety 2015 ALPRAZOLAM 19854960507 Active Carlton Hu MD Active CYMBALTA 30 MG ORAL CAPSULE DELAYED RELEASE PARTICLES 1 cap by mouth daily for depression DULOXETINE HCL 71071660766 Active Carlton beltrán MD Active CEFDINIR 300 MG ORAL CAPSULE 1 po BID x 10 days CEFDINIR 94266659425 No Longer Active Carlton Hu MD Active ZOCOR 40 MG ORAL TABLET 1 tab by mouth daily SI MVASTATIN 83715172392 No Longer Active Carlton Hu MD Active CYCLOBENZAPRINE HCL 10 MG ORAL TABLET 1 tablet by mouth BID prn had pain CYCLOBENZAPRINE HCL 04097789084 No Longer Active Jayden uH MD Active LEVOFLOXACIN 500 MG ORAL TABLET 1 tab PO daily x 10 days LEVOFLOXACIN 85520280989 No Longer Active Carlton Hu MD Acti ve PREDNISONE 20 MG ORAL TABLET 3 tab PO qd x 2d, 2 tab P O qd x 2d, 1 tab PO qd x 2d, 1/2 tab PO qd x 2d PREDNISONE 44270666339 No Lo nger Active Carlton Hu MD Active FLUTICASONE PROPIONATE 50 MCG/ACT NASAL SUSPENSION 1 t o 2 sprays each nostril daily FLUTICASONE PROPIONATE 21995443354 No Longer Ac tive Blaine HERNANDEZ Active CHERATUSSIN AC 100-10 MG/5ML ORAL SYRUP 1 tsp by mouth every 4 hours as needed for cough GUAIFENESIN-CODEINE 63772286342 No Longe r Active Blaine HERNANDEZ Active PROMETHAZINE-CODEINE 6.25-10 MG/5ML ORAL SYRUP 1 tsp b y mouth every 6 hours if needed for cough PROMETHAZINE-CODEINE 28869474926 No Longer Active Blaine HERNANDEZ Active CHERATUSSIN AC 100-10 MG/5ML ORAL SYRUP 1 tsp by mouth every 4 hours as needed for cough GUAIFENESIN-CODEINE 58369816099 No Longe r Active Blaine HERNANDEZ Active ZITHROMAX Z-REYNA 250 MG ORAL TABLET 2 today, then 1 daily for 4 d ays AZITHROMYCIN 57938218827 No Longer Active Columba Parrish Act nael ZITHROMAX 250 MG ORAL TABLET 2 po today, then 1 po q days 2-5 20 14/03/21 AZITHROMYCIN 49930865538 No Longer Active Carlton Hu MD Active ZITHROMAX Z-REYNA 250 MG ORAL TABLET 2 today, then 1 daily for 4 d ays AZITHROMYCIN 24133744930 No Longer Active Columba Parrish Act nael AUGMENTIN 875-125 MG ORAL TABLET 1 po BID x 10 days 13/01/20 AMOXICILLIN-POT CLAVULANATE 44669377991 No Longer Active Diya Daphnebraayn KHAN Active ZITHROMAX 250 MG ORAL TABLET 2 po today, then 1 po q days 2-5 12/08/14 AZITHROMYCIN 08005122671 No Longer Active Carlton Hu MD Active TRAMADOL HCL 50 MG ORAL TABLET 1 po tid with ES Tylenol TRAMADOL HCL 43823047247 Active Carlton Hu MD Active PREMARIN 0.625 MG ORAL TABLET TAKE 1 TAB BY MOUTH DAILY ESTROGENS CONJUGATED 99327858935 No Longer Active Ridge Bess DO A ctive CYMBALTA 30 MG ORAL CAPSULE DELAYED RELEASE PARTICLES 1 cap by mouth daily DULOXETINE HCL 27815955422 No Longer Active Ridge tam DO Active AMOXICILLIN 500 MG ORAL CAPSULE 1 tab by mouth 3 times daily x 10 days AMOXICILLIN 11578757965 No Longer Active Carlton bustamante MD Active AMOXICILLIN 500 MG ORAL CAPSULE 1 tab by mouth 3 times daily x 10 days AMOXICILLIN 14353423801 No Longer Active Carlton bustamante MD Active PROMETHAZINE-CODEINE 6.25-10 MG/5ML ORAL SYRUP 1 tsp b y mouth every 8 hours prn cough PROMETHAZINE-CODEINE 03619816152 No Longer Acti ve Carlton Hu MD Active MEDROL 4 MG ORAL TABLET THERAPY PACK 6 pills x 1 day, then 5 pills x 1 day then 4 pills x 1 day, then 3 pills x 1 day, then 2 pills x 1 day, then 1 pill x 1 day, then stop METHYLPREDNISOLONE 17513048971 No Long er Active Perez Mora MD Active AZITHROMYCIN 250 MG ORAL TABLET 2 po qd x 1 day, then 1 po q d x 4 days AZITHROMYCIN 25000998398 No Longer Active Perez Ambriz MD Active SYMBICORT 160-4.5 MCG/ACT INHALATION AEROSOL 2 puffs bid wit h rinse after BUDESONIDE-FORMOTEROL FUMARATE 91826096973 N o Longer Active Perez Mora MD Active LYRICA 75 MG ORAL CAPSULE TAKE 1 CAPSULE BY MOUTH TWICE DAILY PREGABALIN 93871421354 No Longer Active Carlton Hu MD Acti ve TOPAMAX 25 MG ORAL TABLET 1 qHS x 1 week, then 1 BID x 1 week, then 1 qAM and 2 qHS x 1 week, then 2 BID (migraine prevention) T OPIRAMATE 36110105710 No Longer Active Jerica FUENTES Active TOPAMAX 50 MG ORAL TABLET take 1 tab po BID for migraines. 07/02 TOPIRAMATE 55255539521 No Longer Active Jerica FUENTES Active TOPAMAX 100 MG ORAL TABLET Take 1 tablet po bid TO PIRAMATE 09638359634 Active Carlton Hu MD Active TRIAMCINOLONE ACETONIDE 0.1 % EXTERNAL CREAM apply three roger es daily prn rash TRIAMCINOLONE ACETONIDE 71254882870 No Longer Active Carlton Hu MD Active PAXIL 40 MG ORAL TABLET take 1 tab po qday for depression 0 PAROXETINE HCL 48004756012 Active Carlton Hu MD Active CHERATUSSIN AC 100-10 MG/5ML ORAL SYRUP 5ml po q6hr PRN Cough 20 13/04/14 GUAIFENESIN-CODEINE 31765239434 No Longer Active Carlton Hu MD Active MEDROL 4 MG ORAL TABLET THERAPY PACK 6 tabs on day 1, 5 tabs on day 2, 4 tabs on day 3, 3 tabs on day 4, 2 tabs on day 5, 1 tab on day 6 2013 METHYLPREDNISOLONE 82810971807 No Longer Active Perez Mroa MD Active AZITHROMYCIN 250 MG ORAL TABLET 2 po qd x 1 day, then 1 po q d x 4 days AZITHROMYCIN 00270125067 No Longer Active Perez Ambriz MD Active PROPRANOLOL HCL 60 MG ORAL TABLET 1 PO Q D PROPRANOLOL HCL 99038775980 No Longer Active Perez Mora MD Activ e CHERATUSSIN AC 100-10 MG/5ML ORAL SYRUP take one tsp po Q 6h ours prn cough GUAIFENESIN-CODEINE 71834579445 No Longer Active Zia Mora MD Active AUGMENTIN 875-125 MG ORAL TABLET 1 tab by mouth twice daily with food AMOXICILLIN-POT CLAVULANATE 79533326778 No Longer Act nael Perez Mora MD Active CHERATUSSIN AC 100-10 MG/5ML ORAL SYRUP 1 tsp by mouth every 4 hours as needed for cough GUAIFENESIN-CODEINE 70115627979 No Longe r Active Hugo Restrepo MD Active ACETAMINOPHEN-CODEINE #3 300-30 MG ORAL TABLET 1 PO Q 4-6 HRS UT N PAIN ACETAMINOPHEN-CODEINE 54297303563 No Longer Active Hugo Restrepo MD Active LEVAQUIN 500 MG ORAL TABLET take one po QD LEVO FLOXACIN 06420322267 No Longer Active Griffin HERNANDEZ Active PREDNISONE 20 MG ORAL TABLET Take 3 tabs daily for 3 d ays, 2 tabs daily for 3 days, 1 tab daily for 3 days, 1/2 tab daily for 3 days 11/07 PREDNISONE 70788551524 No Longer Active Carlton Hu MD Acti ve AVELOX 400 MG ORAL TABLET 1 tab by mouth daily MOXIFLOXACIN HCL 62096272421 No Longer Active Carlton Hu MD Active CHERATUSSIN AC 100-10 MG/5ML ORAL SYRUP 1 tsp by mouth every 4 hours as needed for cough GUAIFENESIN-CODEINE 05233467254 No Longe r Active Hugo Restrepo MD Active AVELOX 400 MG ORAL TABLET 1 tab by mouth daily MOXIFLOXACIN HCL 15186281852 No Longer Active Marcy De La Rosa MD PhD Active TERBINAFINE HCL 250 MG ORAL TABLET 1 qDay T ERBINAFINE HCL 40244611463 No Longer Active Marcy De La Rosa MD PhD Active CHERATUSSIN AC 100-10 MG/5ML ORAL SYRUP 1 tsp by mouth every 4 hours as needed for cough GUAIFENESIN-CODEINE 65281536343 No Longe r Active Marcy De La Rosa MD PhD Active AVELOX 400 MG ORAL TABLET 1 tab by mouth daily MOXIFLOXACIN HCL 51535052150 No Longer Active Marcy De La Rosa MD PhD Active HYDROCODONE-ACETAMINOPHEN 5-325 MG ORAL TABLET 1 po q 6hr PRN co ugh HYDROCODONE-ACETAMINOPHEN 70786468359 No Longer Active Marcy De La Rosa MD PhD Active PREDNISONE 20 MG ORAL TABLET 2 tabs daily for 3 days, 1 tab daily for 3 days, 1/2 tab daily for 2 days PREDNISONE 53336640995 No Longer Active Carlton Hu MD Active CEFDINIR 300 MG ORAL CAPSULE by mouth twice a day 2011 CEFDINIR 31885387197 No Longer Active Carlton Hu MD Acti ve HYDROCHLOROTHIAZIDE 25 MG ORAL TABLET 1 TAB PO DAILY HYDROCHLOROTHIAZIDE 13806739859 Active Carlton Hu MD A ctive ACETAMINOPHEN-CODEINE #3 300-30 MG ORAL TABLET 1 tablet po q 4-6 hrs prn pain ACETAMINOPHEN-CODEINE 16678770637 No Longer Active Ridge Bess DO Active ZITHROMAX 250 MG ORAL TABLET 2 po today, then 1 po q days 2-5 20 03/07/07 AZITHROMYCIN 16377906596 No Longer Active Carlton Hu MD Active CHERATUSSIN AC 100-10 MG/5ML ORAL SYRUP take 1 tsp po q4-6 h ours prn cough GUAIFENESIN-CODEINE 78503415962 No Longer Active Jayden Hu MD Active ACETAMINOPHEN-CODEINE #3 300-30 MG ORAL TABLET 1 PO Q 4-6 HR PRN PAIN ACETAMINOPHEN-CODEINE 21102495194 No Longer Active Arnol Hu MD Active LORTAB 7.5-500 MG/15ML ORAL ELIXIR 7.5 ml po q 4 hour prn cough HYDROCODONE-ACETAMINOPHEN 38413496467 No Longer Active Carlton Hu MD Active PREDNISONE 20 MG ORAL TABLET 1 po bid 3 days, then 1 po q day 3 days PREDNISONE 37857114523 No Longer Active Carlton Hu MD Active CEFDINIR 300 MG ORAL CAPSULE by mouth twice a day 2011 CEFDINIR 06982511114 No Longer Active Carlton Hu MD Acti ve CEFDINIR 300 MG ORAL CAPSULE by mouth twice a day 2010 CEFDINIR 40085410781 No Longer Active Carlton Hu MD Acti ve CEFDINIR 300 MG ORAL CAPSULE by mouth twice a day 2010 CEFDINIR 75241578715 No Longer Active Carlton Hu MD Acti ve TESSALON PERLES 100 MG ORAL CAPSULE 1 tablet by mouth 3 times daily as needed for cough BENZONATATE 14726531652 No Longer Active Carlton Hu MD Active CEFDINIR 300 MG ORAL CAPSULE by mouth twice a day 2010 CEFDINIR 57315281583 No Longer Active Carlton Hu MD Acti ve ZITHROMAX Z-REYNA 250 MG ORAL TABLET 2 today, then 1 daily for 4 d ays AZITHROMYCIN 88654791618 No Longer Active Hugo Restrepo MD Active TESSALON PERLES 100 MG ORAL CAPSULE 1 tablet by mouth 3 times daily as needed for cough TESSALON PERLES 100 MG ORAL CAPSULE 72211 7 BENZONATATE Inactive PREDNISONE 20 MG ORAL TABLET 1 po bid 3 days, then 1 po q day 3 days PREDNISONE 20 MG ORAL TABLET 528423 PREDNISONE Greer ctive LORTAB 7.5-500 MG/15ML ORAL [...] cough CHERATUSSIN AC 100-10 MG/5ML ORAL SYRUP 075013 GUAIFENESIN-CODEINE Inactive ACETAMINOPHEN-CODEINE #3 300-30 MG ORAL TABLET 1 tablet po q 4-6 hrs prn pain ACETAMINOPHEN-CODEINE #3 300-30 MG ORAL TABLET ACETAMINOPHEN-CODEINE Inactive HYDROCODONE-ACETAMINOPHEN 5-325 MG ORAL TABLET 1 po q 6hr PRN co ugh HYDROCODONE-ACETAMINOPHEN 5-325 MG ORAL TABLET 924029 HYDROCODONE-ACETAMINOPHEN Inactive AVELOX 400 MG ORAL TABLET 1 tab by mouth daily AVELOX 400 MG ORAL TABLET 918164 MOXIFLOXACIN HCL Inactive CHERATUSSIN AC 100-10 MG/5ML ORAL SYRUP 1 tsp by mouth every 4 hours as needed for cough CHERATUSSIN AC 100-10 MG/5ML ORAL SYRUP 9 82986 GUAIFENESIN-CODEINE Inactive TERBINAFINE HCL 250 MG ORAL TABLET 1 qDay 07/08 TERBINAFINE HCL 250 MG ORAL TABLET 685102 TERBINAFINE HCL Inactive CHERATUSSIN AC 100-10 MG/5ML ORAL SYRUP 1 tsp by mouth every 4 hours as needed for cough CHERATUSSIN AC 100-10 MG/5ML ORAL SYRUP 9 49203 GUAIFENESIN-CODEINE Inactive ACETAMINOPHEN-CODEINE #3 300-30 MG ORAL TABLET 1 PO Q 4-6 HRS UT N PAIN ACETAMINOPHEN-CODEINE #3 300-30 MG ORAL TABLET ACETAMINOPHEN-CODEINE Inactive CHERATUSSIN AC 100-10 MG/5ML ORAL SYRUP 1 tsp by mouth every 4 hours as needed for cough CHERATUSSIN AC 100-10 MG/5ML ORAL SYRUP 9 14336 GUAIFENESIN-CODEINE Inactive AUGMENTIN 875-125 MG ORAL TABLET 1 tab by mouth twice daily with food AUGMENTIN 875-125 MG ORAL TABLET 512139 AMOXICIL MADELINE-POT CLAVULANATE Inactive CHERATUSSIN AC 100-10 MG/5ML ORAL SYRUP take one tsp po Q 6h ours prn cough CHERATUSSIN AC 100-10 MG/5ML ORAL SYRUP 606830 GUAIFENESIN-CODEINE Inactive PROPRANOLOL HCL 60 MG ORAL TABLET 1 PO Q D PROPRANOLOL HCL 60 MG ORAL TABLET 681207 PROPRANOLOL HCL Inactive TOPAMAX 50 MG ORAL TABLET take 1 tab po BID for migraines. 07/02 TOPAMAX 50 MG ORAL TABLET 291523 TOPIRAMATE Inacti ve TOPAMAX 25 MG ORAL TABLET 1 qHS x 1 week, then 1 BID x 1 week, then 1 qAM and 2 qHS x 1 week, then 2 BID (migraine prevention) TOPAMAX 25 MG ORAL TABLET 273259 TOPIRAMATE Inactive LYRICA 75 MG ORAL CAPSULE TAKE 1 CAPSULE BY MOUTH TWICE DAILY LYRICA 75 MG ORAL CAPSULE PREGABALIN Inactive SYMBICORT 160-4.5 MCG/ACT INHALATION AEROSOL 2 puffs bid wit h rinse after SYMBICORT 160-4.5 MCG/ACT INHALATION AEROSOL BUDESONIDE- FORMOTEROL FUMARATE Inactive PROMETHAZINE-CODEINE 6.25-10 MG/5ML ORAL SYRUP 1 tsp b y mouth every 8 hours prn cough PROMETHAZINE-CODEINE 6.25-10 MG/ 5ML ORAL SYRUP 947627 PROMETHAZINE-CODEINE Inactive CYMBALTA 30 MG ORAL CAPSULE DELAYED RELEASE PARTICLES 1 cap by mouth daily CYMBALTA 30 MG ORAL CAPSULE DELAYED RELE ASE PARTICLES 286598 DULOXETINE HCL Inactive PREMARIN 0.625 MG ORAL TABLET TAKE 1 TAB BY MOUTH DAILY PREMARIN 0.625 MG ORAL TABLET ESTROGENS CONJUGATED Inactive CHERATUSSIN AC 100-10 MG/5ML ORAL SYRUP 1 tsp by mouth every 4 hours as needed for cough CHERATUSSIN AC 100-10 MG/5ML ORAL SYRUP 9 45973 GUAIFENESIN-CODEINE Inactive PROMETHAZINE-CODEINE 6.25-10 MG/5ML ORAL SYRUP 1 tsp b y mouth every 6 hours if needed for cough PROMETHAZINE-CODEINE 6.25-10 MG/5ML ORAL SYRUP 239062 PROMETHAZINE-CODEINE Inactive CHERATUSSIN AC 100-10 MG/5ML ORAL SYRUP 1 tsp by mouth every 4 hours as needed for cough CHERATUSSIN AC 100-10 MG/5ML ORAL SYRUP 9 45804 GUAIFENESIN-CODEINE Inactive FLUTICASONE PROPIONATE 50 MCG/ACT NASAL SUSPENSION 1 t o 2 sprays each nostril daily FLUTICASONE PROPIONATE 50 MCG/AC T NASAL SUSPENSION 4985140 FLUTICASONE PROPIONATE Inactive PREDNISONE 20 MG ORAL TABLET 3 tab PO qd x 2d, 2 tab P O qd x 2d, 1 tab PO qd x 2d, 1/2 tab PO qd x 2d PREDNISONE 20 MG ORAL TAB LET 768769 PREDNISONE Inactive LEVOFLOXACIN 500 MG ORAL TABLET 1 tab PO daily x 10 days LEVOFLOXACIN 500 MG ORAL TABLET 762404 LEVOFLOXACIN Inactive CYCLOBENZAPRINE HCL 10 MG ORAL TABLET 1 tablet by mouth BID prn had pain CYCLOBENZAPRINE HCL 10 MG ORAL TABLET 347073 CYCLOBENZAPRINE HCL Inactive ZOCOR 40 MG ORAL TABLET 1 tab by mouth daily 4 ZOCOR 40 MG ORAL TABLET 037921 SIMVASTATIN Inactive TUSSIONEX PENNKINETIC ER 10-8 MG/5ML [...] FLUTICASONE PROPIO EFE 50 MCG/ACT NASAL SUSPENSION 0996205 FLUTICASONE PROPIONATE Inactive TUSSIONEX PENNKINETIC ER 10-8 [...] ays ZITHROMAX Z-REYNA 250 MG ORAL TABLET 404070 AZITHROMYCIN Inactive CEFDINIR 300 MG ORAL CAPSULE by mouth twice a day 2010 CEFDINIR 300 MG ORAL CAPSULE 425294 CEFDINIR Inactive CEFDINIR 300 MG ORAL CAPSULE by mouth twice a day 2010 CEFDINIR 300 MG ORAL CAPSULE 854530 CEFDINIR Inactive CEFDINIR 300 MG ORAL CAPSULE by mouth twice a day 2010 CEFDINIR 300 MG ORAL CAPSULE 709390 CEFDINIR Inactive CEFDINIR 300 MG ORAL CAPSULE by mouth twice a day 2011 CEFDINIR 300 MG ORAL CAPSULE 910933 CEFDINIR Inactive ZITHROMAX 250 MG ORAL TABLET 2 po today, then 1 po q days 2-5 20 03/07/07 ZITHROMAX 250 MG ORAL TABLET 633091 AZITHROMYCIN [place] ctive CEFDINIR 300 MG ORAL CAPSULE by mouth twice a day 2011 CEFDINIR 300 MG ORAL CAPSULE 20020704 CEFDINIR Inactive PREDNISONE 20 MG ORAL TABLET 2 tabs daily for 3 days, 1 tab daily for 3 days, 1/2 tab daily for 2 days PREDNISONE 20 MG ORAL T ABLET 358218 PREDNISONE Inactive AVELOX 400 MG ORAL TABLET 1 tab by mouth daily AVELOX 400 MG ORAL TABLET 673279 MOXIFLOXACIN HCL Inactive AVELOX 400 MG ORAL TABLET 1 tab by mouth daily AVELOX 400 MG ORAL TABLET 677285 MOXIFLOXACIN HCL Inactive PREDNISONE 20 MG ORAL TABLET Take 3 tabs daily for 3 d ays, 2 tabs daily for 3 days, 1 tab daily for 3 days, 1/2 tab daily for 3 days 11/07 PREDNISONE 20 MG ORAL TABLET 578522 PREDNISONE Inactive LEVAQUIN 500 MG ORAL TABLET take one po QD LEVAQUIN 500 MG ORAL TABLET 153750 LEVOFLOXACIN Inactive AZITHROMYCIN 250 MG ORAL TABLET 2 po qd x 1 day, then 1 po q d x 4 days AZITHROMYCIN 250 MG ORAL TABLET 156790 AZITHROMY GIOVANNI Inactive MEDROL 4 MG ORAL TABLET THERAPY PACK 6 tabs on day 1, 5 tabs on day 2, 4 tabs on day 3, 3 tabs on day 4, 2 tabs on day 5, 1 tab on day 6 2013 MEDROL 4 MG ORAL TABLET THERAPY PACK 151387 METHYLPREDNISOLONE [place] ctive CHERATUSSIN AC 100-10 MG/5ML ORAL SYRUP 5ml po q6hr PRN Cough 20 13/04/14 CHERATUSSIN AC 100-10 MG/5ML ORAL SYRUP 373754 GUAIFENE SIN-CODEINE Inactive TRIAMCINOLONE ACETONIDE 0.1 % EXTERNAL CREAM apply three roger es daily prn rash TRIAMCINOLONE ACETONIDE 0.1 % EXTERNAL CREAM 101 4314 TRIAMCINOLONE ACETONIDE Inactive AZITHROMYCIN 250 MG ORAL TABLET 2 po qd x 1 day, then 1 po q d x 4 days AZITHROMYCIN 250 MG ORAL TABLET 814290 AZITHROMY GIOVANNI Inactive MEDROL 4 MG ORAL TABLET THERAPY PACK 6 pills x 1 day, then 5 pills x 1 day then 4 pills x 1 day, then 3 pills x 1 day, then 2 pills x 1 day, then 1 pill x 1 day, then stop MEDROL 4 MG ORAL TABLET THERAPY PACK 329390 METHYLPREDNISOLONE Inactive AMOXICILLIN 500 MG ORAL CAPSULE 1 tab by mouth 3 times daily x 10 days AMOXICILLIN 500 MG ORAL CAPSULE 091518 AMOXICILL IN Inactive AMOXICILLIN 500 MG ORAL CAPSULE 1 tab by mouth 3 times daily x 10 days AMOXICILLIN 500 MG ORAL CAPSULE 600477 AMOXICILL IN Inactive ZITHROMAX 250 MG ORAL TABLET 2 po today, then 1 po q days 2-5 20 12/08/14 ZITHROMAX 250 MG ORAL TABLET 296726 AZITHROMYCIN [place] ctive AUGMENTIN 875-125 MG ORAL TABLET 1 po BID x 10 days 20 13/01/20 AUGMENTIN 875-125 MG ORAL TABLET 921224 AMOXICILLIN-POT CLAVULANATE Inactive ZITHROMAX Z-REYNA 250 MG ORAL TABLET 2 today, then 1 daily for 4 d ays ZITHROMAX Z-REYNA 250 MG ORAL TABLET 894530 AZITHROMYCIN Inactive ZITHROMAX 250 MG ORAL TABLET 2 po today, then 1 po q days 2-5 20 14/03/21 ZITHROMAX 250 MG ORAL TABLET 232856 AZITHROMYCIN [place] ctive ZITHROMAX Z-REYNA 250 MG ORAL TABLET 2 today, then 1 daily for 4 d ays ZITHROMAX Z-REYNA 250 MG ORAL TABLET 683096 AZITHROMYCIN Inactive CEFDINIR 300 MG ORAL CAPSULE 1 po BID x 10 days 06/21 CEFDINIR 300 MG ORAL CAPSULE 20020704 CEFDINIR Inactive ZITHROMAX 250 MG ORAL TABLET 2 po today, then 1 po q days 2-5 20 13/08/10 ZITHROMAX 250 MG ORAL TABLET 379599 AZITHROMYCIN [place] ctive LEVAQUIN 500 MG ORAL TABLET 1 tablet by mouth daily 20 13/09/24 LEVAQUIN 500 MG ORAL TABLET 19971102 LEVOFLOXACIN Inactive SINGULAIR 10 MG ORAL TABLET 1 po qday for allergies 20 14/01/12 SINGULAIR 10 MG ORAL TABLET 20010504 MONTELUKAST SODIUM Inactive AMOXICILLIN 500 MG ORAL CAPSULE 2 po BID x 10 days 201 09/29/08 AMOXICILLIN 500 MG ORAL CAPSULE 791907 AMOXICILLIN Inactive PREDNISONE 20 MG ORAL TABLET 2 tabs daily for 3 days, 1 tab daily for 3 days, 1/2 tab daily for 2 days PREDNISONE 20 MG ORAL T ABLET 470822 PREDNISONE Inactive ZITHROMAX Z-REYNA 250 MG ORAL TABLET 2 today, then 1 daily for 4 d ays ZITHROMAX Z-REYNA 250 MG ORAL TABLET 220038 AZITHROMYCIN Inactive PREDNISONE 20 MG ORAL TABLET 2 tabs daily for 3 days, 1 tab daily for 3 days, 1/2 tab daily for 2 days PREDNISONE 20 MG ORAL T ABLET 737718 PREDNISONE Inactive ZITHROMAX 250 MG ORAL TABLET 2 po today, then 1 po q days 2-5 14/09/04 ZITHROMAX 250 MG ORAL TABLET 975420 AZITHROMYCIN [place] ctive AMOXICILLIN 500 MG ORAL CAPSULE 1 cap by mouth three times a day AMOXICILLIN 500 MG ORAL CAPSULE 668427 AMOXICILLIN Inactive TERBINAFINE HCL 250 MG ORAL TABLET 1 qDay for nail fungus 7 TERBINAFINE HCL 250 MG ORAL TABLET 979030 TERBINAFINE HCL Inact nael Vital Signs Date [...] - Chem istry sodium, serum 132 mmol/L 377-191 1480/07/12 potassium, serum 2.7 mmol/L 3.5-5.2 chloride, serum 93 mmol/L 98-107 carbon dioxide, venous blood 30.8 mmol/L 21.0-32 .0 blood glucose 107 mg/dL 65-110 calcium, serum 9.3 mg/dL 8.5-10.1 urea nitrogen, blood 12 mg/dL 7-18 creatinine, serum 1.00 mg/dL 0.60-1.30 sodium, serum 142 mmol/L 526-144 2673/07/17 potassium, serum 4.2 mmol/L 3.5-5.2 chloride, serum 106 mmol/L 98-107 carbon dioxide, venous blood 29.9 mmol/L 21.0-32 .0 blood glucose 108 mg/dL 65-110 calcium, serum 9.1 mg/dL 8.5-10.1 urea nitrogen, blood 11 mg/dL 7-18 creatinine, serum 0.81 mg/dL 0.60-1.30 Lab Report: Rapid Strep - Lab Microbial identification kit, rapid strep method Negative Negative Encounters Code Encounter Date Provider Facility [id number] Level 3 Est. Patient 10:26:00 PHYSICIAN INTENSIVIST [place] [employer] [facility] CPT-19625 Level 3 Est. Patient 13:35:41 PHYSICIAN INTENSIVIST Carlton rich MD [facility] CPT-42235 Level 3 Est. Patient 10:03:52 PHYSICIAN INTENSIVIST Carlton rich MD [facility] CPT-95204 Level 3 Est. Patient 12:17:50 CDT Hugo Restrepo MD [facility] CPT-29889 Level 3 Est. Patient 13:42:38 CDT Italo KHAN [facility] CPT-82339 Level 3 Est. Patient 13:23:51 CDT Diya Mariana holtgideon [facility] [place] CPT-90090 Level 3 Est. Patient 14:22:19 PHYSICIAN INTENSIVIST Diya Mariana cobian [facility] [place] CPT-20619 Level 3 Est. Patient 10:11:46 CDT Carlton rich MD [facility] CPT-41301 Level 3 Est. Patient 17:29:43 CDT Elise Cesar spaulding [facility] [place] CPT-44385 Level 3 Est. Patient 11:58:06 CDT Elise And chelly [facility] [place] CPT-17873 Level 4 Est. Patient 14:36:51 CDT Carlton rich MD [facility]-37905 Level 3 Est. Patient 18:16:00 PHYSICIAN INTENSIVIST Blaine Freeman [facility] CPT-46743 Level 3 Est. Patient 09:45:49 PHYSICIAN INTENSIVIST Carlton rich MD [facility] CPT-90713 Level 3 Est. Patient 13:19:20 CDT Carlton rich MD [facility] CPT-09528 Level 3 Est. Patient 13:06:43 CDT Ridge tam DO [facility] CPT-15494 Level 3 Est. Patient 10:03:07 CDT Perez Mora MD [facility] CPT-52491 Level 3 Est. Patient 19:50:35 PHYSICIAN INTENSIVIST Carlton rich MD [facility] CPT-53002 Level 4 Est. Patient 18:05:01 PHYSICIAN INTENSIVIST Carlton rich MD [facility] CPT-45499 Level 3 Est. Patient 10:45:55 PHYSICIAN INTENSIVIST Hugo Restrepo MD [facility] CPT-82675 Level 3 Est. Patient 14:12:49 CDT Griffin lincoln [facility] CPT-58714 Level 3 Est. Patient 17:37:24 CDT Carlton rich MD [facility] CPT-03807 Level 3 Est. Patient 16:51:54 CDT Carlton rich MD [facility]-60112 Level 3 Est. Patient 12:18:11 CDT Hugo Restrepo MD [facility] CPT-11010 Level 3 Est. Patient 11:30:25 CDT Marcy crisostomo MD PhD [facility] CPT-57866 Level 3 Est. Patient 12:00:47 PHYSICIAN INTENSIVIST Carlton rich MD [facility]-72468 Level 3 Est. Patient 16:31:06 PHYSICIAN INTENSIVIST Carlton rich MD [facility] CPT-62614 Level 3 Est. Patient 16:23:24 PHYSICIAN INTENSIVIST Ridge tam [facility] CPT-89177 Level 3 Est. Patient 12:34:12 CDT Carlton rich MD [facility] CPT-57299 Level 2 Est. Patient 15:43:33 CDT Robi armstrong MD [facility] CPT-90800 Level 4 Est. Patient 14:04:44 CDT Carlton rich MD [facility] CPT-96432 Level 3 Est. Patient 05:47:59 CDT Ridge tam [facility] CPT-65688 Level 3 Est. Patient 13:12:53 PHYSICIAN INTENSIVIST Carlton rich MD [facility]-79973 Level 3 Est. Patient 14:26:53 CDT Hugo [...] CPT-J1100 Decadron 6mg (Dexamethasone) 14:32:13 CDT 2 CPT-07997 Hip bilat min 2V w AP pelvis 13:16:20 CDT 2 CPT-93290 Pelvis only 13:07:33 CDT CPT-01026 Spec Collection and Handling Fee 11:25:12 C DT CPT-88158 Fluzone Quadrivalent Intramuscular Suspe nsion 0.5 ML 14:31:55 CDT CPT-55659 Abx/Therapy Injection 13:28:47 PHYSICIAN INTENSIVIST CPT-J2930 Solu Medrol 125 mg (Methyl Prednisolone Sodium Succinate) 12:00:47 PHYSICIAN INTENSIVIST CPT-48618 Venipuncture Draw Fee 11:33:31 CDT CPT-26848 EKG Trac and Interp 11:21:09 CDT CPT-08088 Chest 2V Frontal and Lat 11:21:09 CDT 12/15 CPT-11373 Venipuncture Draw Fee 08:02:34 CDT CPT-94747 Chest 2V Frontal and Lat 05:47:59 CDT 06/05
--- OUTSIDE RECORDS SUMMARY | 2019-10-08 09:44 | XMS REPORT | Clinical Summary ---
Author Author Caitlin, Juliana Martinez Organization [employer] [facility] Address Unknown Phone Unavailable [...] Pain in limb SINUSITIS 473.9 Active Carlton uH MD Unspecified sinusitis (chronic) HEALTH SCREENING V70.0 [...] PRN Cough 20 14/09/04 HYDROCOD POLST-CHLORPHEN POLST 02035614128 Active Elise Whitmore APRN Active ZITHROMAX 250 MG TAB 2 po today, then 1 po q days 2-5 AZITHROMYCIN 67495295541 No Longer Active Elise Whitmore APRN Acti ve TUSSIONEX PENNKINETIC ER 10-8 MG/5ML LQCR 5 ml twice a day a s needed for cough HYDROCOD POLST-CHLORPHEN POLST 75153575444 N o Longer Active Elise Whitmore APRN Active MONTELUKAST SODIUM 10 MG ORAL TABS 1 po daily for Allergy 6 MONTELUKAST SODIUM 65782343920 Active ALFREDO Holly Act nael TUSSIONEX PENNKINETIC ER 10-8 MG/5ML LQCR 5ml po q12hr PRN Cough HYDROCOD POLST-CHLORPHEN POLST 35315377452 No Longer Active Hugo Restrepo MD Active GABAPENTIN 100 MG CAPS 1 po BID for fibromyalgia GABAPENTIN 42195086995 Active Elise Whitmore APRN Active LYRICA 100 MG CAPS Take 1 tab po BID for fibromyalgia PREGABALIN 32842343022 No Longer Active Elise Whitmore APRN Acti ve PROAIR HFA 108 (90 BASE) MCG/ACT AERS 2 puffs four times a d ay as needed ALBUTEROL SULFATE 72280999444 Active Elise Whitmore APRN Active MUCINEX DM MAXIMUM STRENGTH 60-1200 MG [id number] 1 tab po q am 2016 DEXTROMETHORPHAN-GUAIFENESIN 80349235907 Active Jillina Frakerriel ORAL AND MAXILLOFACIAL SURGERY RESIDENT Active PREDNISONE 20 MG TAB 2 tabs daily for 3 days, 1 t ab daily for 3 days, 1/2 tab daily for 2 days PREDNISONE 92705691921 No Longer Active Jillina Frakerriel ORAL AND MAXILLOFACIAL SURGERY RESIDENT Active TUSSIONEX PENNKINETIC ER 10-8 MG/5ML ORAL LQCR 5 mL PO q 12 hrs PRN cough HYDROCOD POLST-CHLORPHEN POLST 02644666546 No Longer Active Jillina Frazell ORAL AND MAXILLOFACIAL SURGERY RESIDENT Active FLUTICASONE PROPIONATE 50 MCG/ACT SUSP 2 sprays each n ostril daily until bottle is empty FLUTICASONE PROPIONATE 33076018085 No Longer Ac tive Jillina Frazell ORAL AND MAXILLOFACIAL SURGERY RESIDENT Active ASMANEX 60 METERED DOSES 220 MCG/INH AEPB 1 puff bid with ri nse after MOMETASONE FUROATE 64587079254 No Longer Active Jillina Darlin ell ORAL AND MAXILLOFACIAL SURGERY RESIDENT Active ZITHROMAX Z-REYNA 250 MG TABS 2 today, then 1 daily for 4 days 201 7/02/15 AZITHROMYCIN 39182301352 No Longer Active Elise Whitmore APRN Active TUSSIONEX PENNKINETIC ER 10-8 MG/5ML LQCR 5ml po q12hr PRN Cough HYDROCOD POLST-CHLORPHEN POLST 29736890676 No Longer Active Elise Whitmore APRN Active MUCINEX D 60-600 MG [id number] 1 tab po q am PSEUDOEPHEDRINE-GUAIFENESIN 57676663433 Active Jillina Frazell ORAL AND MAXILLOFACIAL SURGERY RESIDENT Active PREDNISONE 20 MG TAB 2 tabs daily for 3 days, 1 t ab daily for 3 days, 1/2 tab daily for 2 days PREDNISONE 22310073245 No Longer Active Jillina Frazell ORAL AND MAXILLOFACIAL SURGERY RESIDENT Active AMOXICILLIN 500 MG CAPS 2 po BID x 10 days AMOX ICILLIN 20628851041 No Longer Active Jillina Frazell ORAL AND MAXILLOFACIAL SURGERY RESIDENT Active SINGULAIR 10 MG TABS 1 po qday for allergies 2 MONTELUKAST SODIUM 08964833480 No Longer Active Carlton Hu MD Acti ve LEVAQUIN 500 MG TAB 1 tablet by mouth daily LEV OFLOXACIN 49895040499 No Longer Active Carlton Hu MD Active FLUTICASONE PROPIONATE 50 MCG/ACT SUSP 2 sprays each n ostril daily for 2 weeks, then 1 spray each nostril daily. FLUTICASONE PRO PIONATE 28699106699 Active Elise Whitmore APRN Active ZITHROMAX 250 MG TAB 2 po today, then 1 po q days 2-5 AZITHROMYCIN 89664850686 No Longer Active Elise Whitmore APRN Acti ve XANAX 0.5 MG TABS one tablet by mouth daily prn anxiety ALPRAZOLAM 64958080000 Active Elise Whitmore APRN Active CYMBALTA 30 MG CPEP 1 cap by mouth daily for depression DULOXETINE HCL 16938595425 Active Carlton Hu MD Active CEFDINIR 300 MG CAPS 1 po BID x 10 days CEFDINI R 60902840729 No Longer Active Carlton Hu MD Active ZOCOR 40 MG TAB 1 tab by mouth daily SIMVASTATI N 35741432167 No Longer Active Carlton Hu MD Active CYCLOBENZAPRINE HCL 10 MG TABS 1 tablet by mouth BID prn had cherelle n CYCLOBENZAPRINE HCL 04556085836 No Longer Active Carlton Hu MD Active LEVOFLOXACIN 500 MG ORAL TABS 1 tab PO daily x 10 days LEVOFLOXACIN 55074817937 No Longer Active Carlton Hu MD Acti ve PREDNISONE 20 MG ORAL TABS 3 tab PO qd x 2d, 2 tab PO qd x 2d, 1 tab PO qd x 2d, 1/2 tab PO qd x 2d PREDNISONE 39601574131 No Longer Active Carlton Hu MD Active FLUTICASONE PROPIONATE 50 MCG/ACT SUSP 1 to 2 sprays each no stril daily FLUTICASONE PROPIONATE 13780167923 No Longer Active T jaz HERNANDEZ Active CHERATUSSIN AC 100-10 MG/5ML SYRP 1 tsp by mouth every 4 hours as needed for cough GUAIFENESIN-CODEINE 44979846639 No Longer Activ e Blaine HERNANDEZ Active PROMETHAZINE-CODEINE 6.25-10 MG/5ML SYRP 1 tsp by mout h every 6 hours if needed for cough PROMETHAZINE-CODEINE 56801111521 No Long er Active Blaine HERNANDEZ Active CHERATUSSIN AC 100-10 MG/5ML SYRP 1 tsp by mouth every 4 hours as needed for cough GUAIFENESIN-CODEINE 76340295462 No Longer Activ e Blaine HERNANDEZ Active ZITHROMAX Z-REYNA 250 MG TABS 2 today, then 1 daily for 4 days 201 08/30/03 AZITHROMYCIN 66782461942 No Longer Active Columba Raida Act nael ZITHROMAX 250 MG TAB 2 po today, then 1 po q days 2-5 AZITHROMYCIN 17866903874 No Longer Active Carlton Hu MD Acti ve ZITHROMAX Z-REYNA 250 MG TABS 2 today, then 1 daily for 4 days 201 08/07/20 AZITHROMYCIN 92658891620 No Longer Active Columba Raida Act nael AUGMENTIN 875-125 MG TAB 1 po BID x 10 days AMOXICILLIN- POT CLAVULANATE 94480396155 No Longer Active Jillina Frazell ORAL AND MAXILLOFACIAL SURGERY RESIDENT Active ZITHROMAX 250 MG TAB 2 po today, then 1 po q days 2-5 AZITHROMYCIN 07278933364 No Longer Active Carlton Hu MD Acti ve TRAMADOL HCL 50 MG TABS 1 po tid with ES Tylenol TRAMADOL HCL 50199569524 Active Carlton Hu MD Active PREMARIN 0.625 MG TABS TAKE 1 TAB BY MOUTH DAILY 07/25 ESTROGENS CONJUGATED 25246891480 No Longer Active Ridge Bess DO Active CYMBALTA 30 MG CPEP 1 cap by mouth daily DULOXE SNEHA HCL 02976435110 No Longer Active Ridge Bess DO Active AMOXICILLIN 500 MG CAP 1 tab by mouth 3 times daily x 10 days 20 14/04/28 AMOXICILLIN 95014643971 No Longer Active Carlton Hu MD Active AMOXICILLIN 500 MG CAP 1 tab by mouth 3 times daily x 10 days 20 13/03/08 AMOXICILLIN 67403235142 No Longer Active Carlton Hu MD Active PROMETHAZINE-CODEINE 6.25-10 MG/5ML SYRP 1 tsp by mouth ever y 8 hours prn cough PROMETHAZINE-CODEINE 67950223111 No Longer Active Robert Hu MD Active MEDROL (REYNA) 4 MG TABS 6 pills x 1 day, then 5 pill s x 1 day then 4 pills x 1 day, then 3 pills x 1 day, then 2 pills x 1 day, then 1 pill x 1 day, then stop METHYLPREDNISOLONE 87232661607 No Longer Active Parris Mora MD Active AZITHROMYCIN 250 MG TABS 2 po qd x 1 day, then 1 po qd x 4 days AZITHROMYCIN 65385743209 No Longer Active Perez Mora MD Active SYMBICORT 160-4.5 MCG/ACT AERO 2 puffs bid with rinse after 2011 BUDESONIDE-FORMOTEROL FUMARATE 13837733681 No Longer Active Perez Mora MD Active LYRICA 75 MG CAPS TAKE 1 CAPSULE BY MOUTH TWICE DAILY 2013 PREGABALIN 70944262033 No Longer Active Carlton Hu MD Active TOPAMAX 25 MG TABS 1 qHS x 1 week, then 1 BID x 1 week, then 1 qAM and 2 qHS x 1 week, then 2 BID (migraine prevention) TOPIRAMAT E 75667029474 No Longer Active Jerica FUENTES Active TOPAMAX 50 MG TABS take 1 tab po BID for migraines. 12/07/10 TOPIRAMATE 18485542424 No Longer Active Jerica FUENTES Ac tive TOPAMAX 100 MG TABS Take 1 tablet po bid TOPIRAMATE 4999 3171441 Active Elise Whitmore APRN Active TRIAMCINOLONE ACETONIDE 0.1 % CREA apply three times daily prn r beatrice TRIAMCINOLONE ACETONIDE 37313045680 No Longer Active Carlton Hu MD Active PAXIL 40 MG TAB take 1 tab po qday for depression PAROXETINE HCL 01082994170 Active Elise Whitmore APRN Active CHERATUSSIN AC 100-10 MG/5ML SYRP 5ml po q6hr PRN Cough GUAIFENESIN-CODEINE 88545316272 No Longer Active Carlton Hu MD Active MEDROL (REYNA) 4 MG TABS 6 tabs on day 1, 5 tabs on d ay 2, 4 tabs on day 3, 3 tabs on day 4, 2 tabs on day 5, 1 tab on day 6 METHYLPREDNISOLONE 76098942947 No Longer Active Perez Mora MD Active AZITHROMYCIN 250 MG TABS 2 po qd x 1 day, then 1 po qd x 4 days AZITHROMYCIN 22942245563 No Longer Active Perez Mora MD Active PROPRANOLOL HCL 60 MG TABS 1 PO Q D PROPRANOL OL HCL 32936827914 No Longer Active Perez Mora MD Active CHERATUSSIN AC 100-10 MG/5ML SYRP take one tsp po Q 6hours prn c ough GUAIFENESIN-CODEINE 11565601550 No Longer Active Perez Means Active AUGMENTIN 875-125 MG TAB 1 tab by mouth twice daily with food 12/03/31 AMOXICILLIN-POT CLAVULANATE 10581697653 No Longer Active Chanel Mora MD Active CHERATUSSIN AC 100-10 MG/5ML SYRP 1 tsp by mouth every 4 hours as needed for cough GUAIFENESIN-CODEINE 51425400118 No Longer Activ e Hugo Restrepo MD Active ACETAMINOPHEN-CODEINE #3 300-30 MG TABS 1 PO Q 4-6 HRS PRN PAIN ACETAMINOPHEN-CODEINE 64751269968 No Longer Active Hugo Restrepo MD Active LEVAQUIN 500 MG TABS take one po QD LEVOFLOXACI N 44032373324 No Longer Active Griffin HERNANDEZ Active PREDNISONE 20 MG TAB Take 3 tabs daily for 3 days , 2 tabs daily for 3 days, 1 tab daily for 3 days, 1/2 tab daily for 3 days P REDNISONE 35132229373 No Longer Active Carlton Hu MD Active AVELOX 400 MG TABS 1 tab by mouth daily MOXIFLO XACIN HCL 48101060957 No Longer Active Carlton Hu MD Active CHERATUSSIN AC 100-10 MG/5ML SYRP 1 tsp by mouth every 4 hours as needed for cough GUAIFENESIN-CODEINE 46286018461 No Longer Activ e Hugo Restrepo MD Active AVELOX 400 MG TABS 1 tab by mouth daily MOXIFLO XACIN HCL 35922702573 No Longer Active Marcy De La Rosa MD PhD Active TERBINAFINE HCL 250 MG TABS 1 qDay TERBINAF INE HCL 85210068014 No Longer Active Marcy De La Rosa MD PhD Active CHERATUSSIN AC 100-10 MG/5ML SYRP 1 tsp by mouth every 4 hours as needed for cough GUAIFENESIN-CODEINE 70262931657 No Longer Activ e Marcy De La Rosa MD PhD Active AVELOX 400 MG TABS 1 tab by mouth daily MOXIFLO XACIN HCL 44318407535 No Longer Active Marcy De La Rosa MD PhD Active HYDROCODONE-ACETAMINOPHEN 5-325 MG TABS 1 po q 6hr PRN cough 201 05/09/16 HYDROCODONE-ACETAMINOPHEN 13905930080 No Longer Active Marcy De La Rosa MD PhD Active PREDNISONE 20 MG TAB 2 tabs daily for 3 days, 1 t ab daily for 3 days, 1/2 tab daily for 2 days PREDNISONE 95140103522 No Longer Active Carlton Hu MD Active CEFDINIR 300 MG CAPS by mouth twice a day CEFDI ODILIA 52610641828 No Longer Active Carlton Hu MD Active HYDROCHLOROTHIAZIDE 25 MG TABS 1 TAB PO DAILY H YDROCHLOROTHIAZIDE 39397237595 Active Carlton Hu MD Active ACETAMINOPHEN-CODEINE #3 300-30 MG TABS 1 tablet po q 4-6hrs prn pain ACETAMINOPHEN-CODEINE 65516831342 No Longer Active Ridge Bess DO Active ZITHROMAX 250 MG TAB 2 po today, then 1 po q days 2-5 AZITHROMYCIN 60753165326 No Longer Active Carlton Hu MD Acti ve CHERATUSSIN AC 100-10 MG/5ML SYRP take 1 tsp po q4-6 hours prn c ough GUAIFENESIN-CODEINE 79727493599 No Longer Active Carlton Hu MD Active ACETAMINOPHEN-CODEINE #3 300-30 MG TABS 1 PO Q 4-6 HR PRN PAIN 2 ACETAMINOPHEN-CODEINE 47737051392 No Longer Active Carlton rich MD Active LORTAB 7.5-500 MG/15ML ELIX 7.5 ml po q 4 hour prn cough HYDROCODONE-ACETAMINOPHEN 90767234515 No Longer Active Carlton Hu MD Active PREDNISONE 20 MG TAB 1 po bid 3 days, then 1 po q day 3 days 201 05/03/07 PREDNISONE 61297498713 No Longer Active Carlton Hu MD Active ELMIRON 100 MG CAPS 2 tablets in the am and 1 tablet at hs PENTOSAN POLYSULFATE SODIUM 90505188006 Active Carlton Hu MD Ac tive CEFDINIR 300 MG CAPS by mouth twice a day CEFDI ODILIA 74348737785 No Longer Active Carlton Hu MD Active CEFDINIR 300 MG CAPS by mouth twice a day CEFDI ODILIA 98561220332 No Longer Active Carlton Hu MD Active CEFDINIR 300 MG CAPS by mouth twice a day CEFDI ODILIA 21937362102 No Longer Active Carlton Hu MD Active TESSALON PERLES 100 MG CAP 1 tablet by mouth 3 times daily a s needed for cough BENZONATATE 81623680515 No Longer Active Carlton bustamante MD Active CEFDINIR 300 MG CAPS by mouth twice a day CEFDI ODILIA 82781849925 No Longer Active Carlton Hu MD Active ZITHROMAX Z-REYNA 250 MG TABS 2 today, then 1 daily for 4 days 201 04/09/17 AZITHROMYCIN 34012422555 No Longer Active Hugo Restrepo MD Active TESSALON PERLES 100 MG CAP 1 tablet by mouth 3 times daily a s needed for cough TESSALON PERLES 100 MG CAP 394423 BENZONATATE I nactive PREDNISONE 20 MG TAB 1 po bid 3 days, then 1 po q day 3 days 201 05/03/07 PREDNISONE 20 MG TAB 873587 PREDNISONE Inactive LORTAB 7.5-500 MG/15ML ELIX 7.5 ml po q 4 hour prn cough LORTAB 7.5-500 MG/15ML ELIX HYDROCODONE-ACETAMINOPHEN Inacti ve ACETAMINOPHEN-CODEINE #3 300-30 MG TABS 1 PO Q 4-6 HR PRN PAIN 2 ACETAMINOPHEN-CODEINE #3 300-30 MG TABS ACETAMIN OPHEN-CODEINE Inactive CHERATUSSIN AC 100-10 MG/5ML SYRP take 1 tsp po q4-6 hours prn c ough CHERATUSSIN AC 100-10 MG/5ML SYRP 882541 GUAIFENESIN-CO DEINE Inactive ACETAMINOPHEN-CODEINE #3 300-30 MG TABS 1 tablet po q 4-6hrs prn pain ACETAMINOPHEN-CODEINE #3 300-30 MG TABS ACETAMIN OPHEN-CODEINE Inactive HYDROCODONE-ACETAMINOPHEN 5-325 MG TABS 1 po q 6hr PRN cough 201 05/09/16 HYDROCODONE-ACETAMINOPHEN 5-325 MG TABS 027776 HYDROCODONE-ACETAMINOPHEN Inactive AVELOX 400 MG TABS 1 tab by mouth daily A VELOX 400 MG TABS 855454 MOXIFLOXACIN HCL Inactive CHERATUSSIN AC 100-10 MG/5ML SYRP 1 tsp by mouth every 4 hours as needed for cough CHERATUSSIN AC 100-10 MG/5ML SYRP 353422 GUAIFENESIN-CODEINE Inactive TERBINAFINE HCL 250 MG TABS 1 qDay TERBINAFINE HCL 250 MG TABS 094321 TERBINAFINE HCL Inactive CHERATUSSIN AC 100-10 MG/5ML SYRP 1 tsp by mouth every 4 hours as needed for cough CHERATUSSIN AC 100-10 MG/5ML SYRP 981290 GUAIFENESIN-CODEINE Inactive ACETAMINOPHEN-CODEINE #3 300-30 MG TABS 1 PO Q 4-6 HRS PRN PAIN ACETAMINOPHEN-CODEINE #3 300-30 MG TABS ACETAMINOPHEN-CODEIN E Inactive CHERATUSSIN AC 100-10 MG/5ML SYRP 1 tsp by mouth every 4 hours as needed for cough CHERATUSSIN AC 100-10 MG/5ML SYRP 596489 GUAIFENESIN-CODEINE Inactive AUGMENTIN 875-125 MG TAB 1 tab by mouth twice daily with food 20 12/03/31 AUGMENTIN 875-125 MG TAB 425282 AMOXICILLIN-POT CLAVULA EFE Inactive CHERATUSSIN AC 100-10 MG/5ML SYRP take one tsp po Q 6hours prn c ough CHERATUSSIN AC 100-10 MG/5ML SYRP 529893 GUAIFENESIN-CO DEINE Inactive PROPRANOLOL HCL 60 MG TABS 1 PO Q D P ROPRANOLOL HCL 60 MG TABS 350152 PROPRANOLOL HCL Inactive TOPAMAX 50 MG TABS take 1 tab po BID for migraines. 12/07/10 TOPAMAX 50 MG TABS 866844 TOPIRAMATE Inactive TOPAMAX 25 MG TABS 1 qHS x 1 week, then 1 BID x 1 week, then 1 qAM and 2 qHS x 1 week, then 2 BID (migraine prevention) TOPAMAX 2 5 MG TABS 469661 TOPIRAMATE Inactive LYRICA 75 MG CAPS TAKE 1 CAPSULE BY MOUTH TWICE DAILY LYRICA 75 MG CAPS PREGABALIN Inactive SYMBICORT 160-4.5 MCG/ACT AERO 2 puffs bid with rinse after 2011 SYMBICORT 160-4.5 MCG/ACT AERO BUDESONIDE-FORMOT SÁNCHEZ FUMARATE Inactive PROMETHAZINE-CODEINE 6.25-10 MG/5ML SYRP 1 tsp by mouth ever y 8 hours prn cough PROMETHAZINE-CODEINE 6.25-10 MG/5ML SYRP 387242 PROMETHAZINE-CODEINE Inactive CYMBALTA 30 MG CPEP 1 cap by mouth daily CYMBALTA 30 MG CPEP 519605 DULOXETINE HCL Inactive PREMARIN 0.625 MG TABS TAKE 1 TAB BY MOUTH DAILY 07/25 PREMARIN 0.625 MG TABS ESTROGENS CONJUGATED Inactive CHERATUSSIN AC 100-10 MG/5ML SYRP 1 tsp by mouth every 4 hours as needed for cough CHERATUSSIN AC 100-10 MG/5ML SYRP 839446 GUAIFENESIN-CODEINE Inactive PROMETHAZINE-CODEINE 6.25-10 MG/5ML SYRP 1 tsp by mout h every 6 hours if needed for cough PROMETHAZINE-CODEINE 6.25-10 MG/5ML SYRP 505152 PROMETHAZINE-CODEINE Inactive CHERATUSSIN AC 100-10 MG/5ML SYRP 1 tsp by mouth every 4 hours as needed for cough CHERATUSSIN AC 100-10 MG/5ML SYRP 120076 GUAIFENESIN-CODEINE Inactive FLUTICASONE PROPIONATE 50 MCG/ACT SUSP 1 to 2 sprays each no stril daily FLUTICASONE PROPIONATE 50 MCG/ACT SUSP 5513166 FLUTICASONE PROPIONATE Inactive PREDNISONE 20 MG ORAL TABS 3 tab PO qd x 2d, 2 tab PO qd x 2d, 1 tab PO qd x 2d, 1/2 tab PO qd x 2d PREDNISONE 20 MG ORAL TABS 599917 PREDNISONE Inactive LEVOFLOXACIN 500 MG ORAL TABS 1 tab PO daily x 10 days LEVOFLOXACIN 500 MG ORAL TABS 098448 LEVOFLOXACIN Inactive CYCLOBENZAPRINE HCL 10 MG TABS 1 tablet by mouth BID prn had cherelle n CYCLOBENZAPRINE HCL 10 MG TABS 272114 CYCLOBENZAPRINE H CL Inactive ZOCOR 40 MG TAB 1 tab by mouth daily ZOCOR 40 M G TAB 070031 SIMVASTATIN Inactive TUSSIONEX PENNKINETIC ER 10-8 MG/5ML [...] empty FLUTICASONE PROPIONATE 50 MCG/ACT SUSP 17 89641 FLUTICASONE PROPIONATE Inactive TUSSIONEX PENNKINETIC ER 10-8 [...] 201 04/09/17 ZITHROMAX Z-REYNA 250 MG TABS 8361406 AZITHROMYCIN Inac tive CEFDINIR 300 MG CAPS [...] q days 2-5 ZITHROMAX 250 MG TAB 4648479 AZITHROMYCIN Inactive CEFDINIR 300 MG CAPS by mouth twice a day CEFDINIR 300 MG CAPS 20020704 CEFDINIR Inactive PREDNISONE 20 MG TAB 2 tabs daily for 3 days, 1 t ab daily for 3 days, 1/2 tab daily for 2 days PREDNISONE 20 MG TAB 519465 PREDNISON E Inactive AVELOX 400 MG TABS 1 tab by mouth daily A VELOX 400 MG TABS 770252 MOXIFLOXACIN HCL Inactive AVELOX 400 MG TABS 1 tab by mouth daily A VELOX 400 MG TABS 730964 MOXIFLOXACIN HCL Inactive PREDNISONE 20 MG TAB Take 3 tabs daily for 3 days , 2 tabs daily for 3 days, 1 tab daily for 3 days, 1/2 tab daily for 3 days PREDNISONE 20 MG TAB 165232 PREDNISONE Inactive LEVAQUIN 500 MG TABS take one po QD LEVAQUIN 50 0 MG TABS 630575 LEVOFLOXACIN Inactive AZITHROMYCIN 250 MG TABS 2 po qd x 1 day, then 1 po qd x 4 days AZITHROMYCIN 250 MG TABS 1903154 AZITHROMYCIN Inactiv e MEDROL (REYNA) 4 MG TABS 6 tabs on day 1, 5 tabs on d ay 2, 4 tabs on day 3, 3 tabs on day 4, 2 tabs on day 5, 1 tab on day 6 MEDROL (REYNA) 4 MG TABS 761678 METHYLPREDNISOLONE Inactive CHERATUSSIN AC 100-10 MG/5ML SYRP 5ml po q6hr PRN Cough CHERATUSSIN AC 100-10 MG/5ML SYRP 818831 GUAIFENESIN-CODEINE Inacti ve TRIAMCINOLONE ACETONIDE 0.1 % CREA apply three times daily prn r beatrice TRIAMCINOLONE ACETONIDE 0.1 % CREA 8420092 TRIAMCINOLONE ACETONIDE Inactive AZITHROMYCIN 250 MG TABS 2 po qd x 1 day, then 1 po qd x 4 days AZITHROMYCIN 250 MG TABS 5399045 AZITHROMYCIN Inactiv e MEDROL (REYNA) 4 MG TABS 6 pills x 1 day, then 5 pill s x 1 day then 4 pills x 1 day, then 3 pills x 1 day, then 2 pills x 1 day, then 1 pill x 1 day, then stop MEDROL (REYNA) 4 MG TABS 496105 METHYLPREDNISOLONE Inactive AMOXICILLIN 500 MG CAP 1 tab by mouth 3 times daily x 10 days 20 13/03/08 AMOXICILLIN 500 MG CAP 001537 AMOXICILLIN Inactive AMOXICILLIN 500 MG CAP 1 tab by mouth 3 times daily x 10 days 20 14/04/28 AMOXICILLIN 500 MG CAP 386576 AMOXICILLIN Inactive ZITHROMAX 250 MG TAB 2 po today, then 1 po q days 2-5 ZITHROMAX 250 MG TAB 1128257 AZITHROMYCIN Inactive AUGMENTIN 875-125 MG TAB 1 po BID x 10 days AUGMENTIN 875- 125 MG TAB 058105 AMOXICILLIN-POT CLAVULANATE Inactive ZITHROMAX Z-REYNA 250 MG TABS 2 today, then 1 daily for 4 days 201 08/07/20 ZITHROMAX Z-REYNA 250 MG TABS 5832258 AZITHROMYCIN Inac tive ZITHROMAX 250 MG TAB 2 po today, then 1 po q days 2-5 ZITHROMAX 250 MG TAB 9286718 AZITHROMYCIN Inactive ZITHROMAX Z-REYNA 250 MG TABS 2 today, then 1 daily for 4 days 201 08/30/03 ZITHROMAX Z-REYNA 250 MG TABS 1780058 AZITHROMYCIN Inac tive CEFDINIR 300 MG CAPS 1 po BID x 10 days C EFDINIR 300 MG CAPS 20020704 CEFDINIR Inactive ZITHROMAX 250 MG TAB 2 po today, then 1 po q days 2-5 ZITHROMAX 250 MG TAB 7122872 AZITHROMYCIN Inactive LEVAQUIN 500 MG TAB 1 tablet by mouth daily LEVAQUIN 500 MG TAB 208776 LEVOFLOXACIN Inactive SINGULAIR 10 MG TABS 1 po qday for allergies 2 SINGULAIR 10 MG TABS 20010504 MONTELUKAST SODIUM Inactive AMOXICILLIN 500 MG CAPS 2 po BID x 10 days AMOXICILLIN 500 MG CAPS 617188 AMOXICILLIN Inactive PREDNISONE 20 MG TAB 2 tabs daily for 3 days, 1 t ab daily for 3 days, 1/2 tab daily for 2 days PREDNISONE 20 MG TAB 413810 PREDNISON E Inactive ZITHROMAX Z-REYNA 250 MG TABS 2 today, then 1 daily for 4 days 201 09/29/14 ZITHROMAX Z-REYNA 250 MG TABS 0365091 AZITHROMYCIN Inac tive PREDNISONE 20 MG TAB 2 tabs daily for 3 days, 1 t ab daily for 3 days, 1/2 tab daily for 2 days PREDNISONE 20 MG TAB 241804 PREDNISON E Inactive ZITHROMAX 250 MG TAB 2 po today, then 1 po q days 2-5 ZITHROMAX 250 MG TAB 6086810 AZITHROMYCIN Inactive Vital Signs Date Name Value [...] Negative Encounters Code Encounter Date Provider Facility CPT-72481 Level 3 Est. Patient 12:17:50 CDT Hugo Restrepo MD [facility] CPT-92865 Level 3 Est. Patient 13:42:38 CDT Italo [facility] CPT-23837 Level 3 Est. Patient 13:23:51 CDT Diya cobian [facility]-81717 Level 3 Est. Patient 14:22:19 PREMIUM NOTE INTEREST CALCULATOR CLERK Diya holtgideon [facility] CPT-83226 Level 3 Est. Patient 10:11:46 CDT Carlton rich MD [facility]-98985 Level 3 Est. Patient 17:29:43 CDT Elise Cesar spaulding [facility] CPT-16986 Level 3 Est. Patient 11:58:06 CDT Elise Guerrero asaelgiselle [facility] CPT-94295 Level 4 Est. Patient 14:36:51 CDT Carlton rich MD [facility]-68777 Level 3 Est. Patient 18:16:00 PREMIUM NOTE INTEREST CALCULATOR CLERK Blaine Freeman [facility] CPT-02564 Level 3 Est. Patient 09:45:49 PREMIUM NOTE INTEREST CALCULATOR CLERK Carlton rich MD [facility]-40402 Level 3 Est. Patient 13:19:20 CDT Carlton rich MD [facility] CPT-86497 Level 3 Est. Patient 13:06:43 CDT Ridge tam DO [facility] CPT-99730 Level 3 Est. Patient 10:03:07 CDT Perez Mora MD [facility] CPT-90312 Level 3 Est. Patient 19:50:35 PREMIUM NOTE INTEREST CALCULATOR CLERK Carlton rich MD [facility] CPT-02124 Level 4 Est. Patient 18:05:01 PREMIUM NOTE INTEREST CALCULATOR CLERK Carlton rich MD [facility]-13235 Level 3 Est. Patient 10:45:55 PREMIUM NOTE INTEREST CALCULATOR CLERK Hugo Restrepo MD [facility]-18116 Level 3 Est. Patient 14:12:49 CDT Griffin lincoln [facility] CPT-85110 Level 3 Est. Patient 17:37:24 CDT Carlton rich MD [facility] CPT-41984 Level 3 Est. Patient 16:51:54 CDT Carlton rich MD [facility]-73661 Level 3 Est. Patient 12:18:11 CDT Hugo Restrepo MD [facility]-84273 Level 3 Est. Patient 11:30:25 CDT Marcy crisostomo MD PhD [facility]-87051 Level 3 Est. Patient 12:00:47 PREMIUM NOTE INTEREST CALCULATOR CLERK Carlton rich MD [facility]-67634 Level 3 Est. Patient 16:31:06 PREMIUM NOTE INTEREST CALCULATOR CLERK Carlton rich MD [facility]-49952 Level 3 Est. Patient 16:23:24 PREMIUM NOTE INTEREST CALCULATOR CLERK Ridge tam [facility] CPT-79806 Level 3 Est. Patient 12:34:12 CDT Carlton rich MD [facility] CPT-45256 Level 2 Est. Patient 15:43:33 CDT Robi armstrong MD [facility]-87573 Level 4 Est. Patient 14:04:44 CDT Carlton rich MD [facility]-63148 Level 3 Est. Patient 05:47:59 CDT Ridge tam [facility] CPT-62925 Level 3 Est. Patient 13:12:53 PREMIUM NOTE INTEREST CALCULATOR CLERK Carlton rich MD [facility]-70197 Level 3 Est. 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
--- OUTSIDE RECORDS SUMMARY | 2019-10-08 09:44 | XMS REPORT | Clinical Summary ---
Author Author Caitlin, Juliana Martinez Organization [facility] Address Unknown Phone Unavailable Allergies, [...] sites Sinusitis 473.9 Active Diya De Guzman CASTING MACHINE OPERATOR Unspecified sinusitis (chronic) Bronchitis-Acute 466.0 Active Carlton Hu MD Acute bronchitis URI - acute 465.9 Active Elise Whitmore CASTING MACHINE OPERATOR Acute upper respiratory infections of unspecified site Pharyngitis acute 462 Active Elise Whitmore A PRN Acute pharyngitis Rhinitis, acute 460 Active Elise Whitmore APR N Acute nasopharyngitis [common cold] Sinusitis 473.9 Active Diya De Guzman CASTING MACHINE OPERATOR Unspecified sinusitis (chronic) BRONCHITIS ICD-490 Inactive [...] bid with ri nse after MOMETASONE FUROATE 56777822562 Active Elise Whitmore APRN Active FLUTICASONE PROPIONATE 50 MCG/ACT SUSP 2 sprays each n ostril daily until bottle is empty FLUTICASONE PROPIONATE 22376339876 Active Lyndsay Whitmore APRN Active ZITHROMAX Z-REYNA 250 MG TABS 2 today, then 1 daily for 4 days 201 09/29/14 AZITHROMYCIN 33915044342 No Longer Active Elise Whitmore APRN Active TUSSIONEX PENNKINETIC ER 10-8 MG/5ML LQCR 5ml po q12hr PRN Cough HYDROCOD POLST-CHLORPHEN POLST 16100550069 No Longer Active Elise Whitmore APRN Active MUCINEX D 60-600 MG [id number] 1 tab po q am PSEUDOEPHEDRINE-GUAIFENESIN 98158928909 Active Jillina Frazell CASTING MACHINE 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 PREDNISONE 20 MG TAB 2 tabs daily for 3 days, 1 t ab daily for 3 days, 1/2 tab daily for 2 days PREDNISONE 32026183574 No Longer Active Jillina Frazell CASTING MACHINE 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 AMOXICILLIN 500 MG CAPS 2 po BID x 10 days AMOX ICILLIN 23242411358 No Longer Active Jillina Frazell CASTING MACHINE 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 SINGULAIR 10 MG TABS 1 po qday for allergies 2 MONTELUKAST SODIUM 03356563250 No Longer Active Carlton Hu MD Acti ve LEVAQUIN 500 MG TAB 1 tablet by mouth daily LEV OFLOXACIN 49043577573 No Longer Active Carlton Hu MD Active FLUTICASONE PROPIONATE 50 MCG/ACT SUSP 2 sprays each n ostril daily for 2 weeks, then 1 spray each nostril daily. FLUTICASONE PRO PIONATE 44265679041 Active Elise Whitmore APRN Active ZITHROMAX 250 MG TAB 2 po today, then 1 po q days 2-5 AZITHROMYCIN 72479715284 No Longer Active Elise Whitmore APRN Acti ve XANAX 0.5 MG TABS one tablet by mouth daily prn anxiety ALPRAZOLAM 89267950115 Active Elise Whitmore APRN Active CYMBALTA 30 MG CPEP 1 cap by mouth daily for depression DULOXETINE HCL 98329344040 Active Carlton Hu MD Active CEFDINIR 300 MG CAPS 1 po BID x 10 days CEFDINI R 55019575285 No Longer Active Carlton Hu MD Active ZOCOR 40 MG TAB 1 tab by mouth daily SIMVASTATI N 07036291292 No Longer Active Carlton Hu MD Active CYCLOBENZAPRINE HCL 10 MG TABS 1 tablet by mouth BID prn had cherelle n CYCLOBENZAPRINE HCL 01583943909 No Longer Active Carlton Hu MD Active LEVOFLOXACIN 500 MG ORAL TABS 1 tab PO daily x 10 days LEVOFLOXACIN 30561884242 No Longer Active Carlton Hu MD Acti ve PREDNISONE 20 MG ORAL TABS 3 tab PO qd x 2d, 2 tab PO qd x 2d, 1 tab PO qd x 2d, 1/2 tab PO qd x 2d PREDNISONE 59722947765 No Longer Active Carlton Hu MD Active TUSSIONEX PENNKINETIC ER 10-8 MG/5ML ORAL LQCR 5 mL PO q 12 hrs PRN cough HYDROCOD POLST-CHLORPHEN POLST 55853429684 Active Elise Whitmore APRN Active FLUTICASONE PROPIONATE 50 MCG/ACT SUSP 1 to 2 sprays each no stril daily FLUTICASONE PROPIONATE 90780162618 No Longer Active T homas W Cloven PA Active CHERATUSSIN AC 100-10 MG/5ML SYRP 1 tsp by mouth every 4 hours as needed for cough GUAIFENESIN-CODEINE 42460569558 No Longer Activ e Blaine HERNANDEZ Active PROMETHAZINE-CODEINE 6.25-10 MG/5ML SYRP 1 tsp by mout h every 6 hours if needed for cough PROMETHAZINE-CODEINE 55202734792 No Long er Active Blaine HERNANDEZ Active CHERATUSSIN AC 100-10 MG/5ML SYRP 1 tsp by mouth every 4 hours as needed for cough GUAIFENESIN-CODEINE 33187124953 No Longer Activ e Blaine HERNANDEZ Active ZITHROMAX Z-REYNA 250 MG TABS 2 today, then 1 daily for 4 days 201 08/30/03 AZITHROMYCIN 58696687587 No Longer Active Columba Raida Act nael ZITHROMAX 250 MG TAB 2 po today, then 1 po q days 2-5 AZITHROMYCIN 07461715477 No Longer Active Carlton Hu MD Acti ve ZITHROMAX Z-REYNA 250 MG TABS 2 today, then 1 daily for 4 days 201 08/07/20 AZITHROMYCIN 58066754013 No Longer Active Columba Raida Act nael AUGMENTIN 875-125 MG TAB 1 po BID x 10 days AMOXICILLIN- POT CLAVULANATE 23098537573 No Longer Active Diya De Guzman APRN Active ZITHROMAX 250 MG TAB 2 po today, then 1 po q days 2-5 AZITHROMYCIN 91100349069 No Longer Active Carlton Hu MD Acti ve TRAMADOL HCL 50 MG TABS 1 po tid with ES Tylenol TRAMADOL HCL 45777310048 Active Carlton Hu MD Active PREMARIN 0.625 MG TABS TAKE 1 TAB BY MOUTH DAILY 07/25 ESTROGENS CONJUGATED 26854641550 No Longer Active Ridge Bess DO Active CYMBALTA 30 MG CPEP 1 cap by mouth daily DULOXE SNEHA HCL 51059036890 No Longer Active Ridge Bess DO Active AMOXICILLIN 500 MG CAP 1 tab by mouth 3 times daily x 10 days 20 14/04/28 AMOXICILLIN 93706415750 No Longer Active Carlton Hu MD Active AMOXICILLIN 500 MG CAP 1 tab by mouth 3 times daily x 10 days 20 13/03/08 AMOXICILLIN 06214353484 No Longer Active Carlton Hu MD Active PROMETHAZINE-CODEINE 6.25-10 MG/5ML SYRP 1 tsp by mouth ever y 8 hours prn cough PROMETHAZINE-CODEINE 99667277427 No Longer Active Robert Hu MD Active MEDROL (REYNA) 4 MG TABS 6 pills x 1 day, then 5 pill s x 1 day then 4 pills x 1 day, then 3 pills x 1 day, then 2 pills x 1 day, then 1 pill x 1 day, then stop METHYLPREDNISOLONE 76890167654 No Longer Active Parris Mora MD Active AZITHROMYCIN 250 MG TABS 2 po qd x 1 day, then 1 po qd x 4 days AZITHROMYCIN 81127526521 No Longer Active Perez Mora MD Active SYMBICORT 160-4.5 MCG/ACT AERO 2 puffs bid with rinse after 2011 BUDESONIDE-FORMOTEROL FUMARATE 59702961289 No Longer Active Perez Mora MD Active LYRICA 75 MG CAPS TAKE 1 CAPSULE BY MOUTH TWICE DAILY 2013 PREGABALIN 02272901175 No Longer Active Carlton Hu MD Active LYRICA 100 MG CAPS Take 1 tab po BID for fibromyalgia PREGABALIN 64140410587 Active Carlton Hu MD Active TOPAMAX 25 MG TABS 1 qHS x 1 week, then 1 BID x 1 week, then 1 qAM and 2 qHS x 1 week, then 2 BID (migraine prevention) TOPIRAMAT E 88733907184 No Longer Active Jerica FUENTES Active TOPAMAX 50 MG TABS take 1 tab po BID for migraines. 12/07/10 TOPIRAMATE 23363727860 No Longer Active Jerica Osei RMA Ac tive TOPAMAX 100 MG TABS Take 1 tablet po bid TOPIRAMATE 4999 7042107 Active Elise Whitmore CASTING MACHINE 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 TRIAMCINOLONE ACETONIDE 0.1 % CREA apply three times daily prn r beatrice TRIAMCINOLONE ACETONIDE 71297275572 No Longer Active Carlton Hu MD Active PAXIL 40 MG TAB take 1 tab po qday for depression PAROXETINE HCL 37929591307 Active Elise Whitmore APRN Active CHERATUSSIN AC 100-10 MG/5ML SYRP 5ml po q6hr PRN Cough GUAIFENESIN-CODEINE 67381879702 No Longer Active Carlton Hu MD Active MEDROL (REYNA) 4 MG TABS 6 tabs on day 1, 5 tabs on d ay 2, 4 tabs on day 3, 3 tabs on day 4, 2 tabs on day 5, 1 tab on day 6 METHYLPREDNISOLONE 19430266903 No Longer Active Perez Mora MD Active AZITHROMYCIN 250 MG TABS 2 po qd x 1 day, then 1 po qd x 4 days AZITHROMYCIN 59893930326 No Longer Active Perez Mora MD Active PROPRANOLOL HCL 60 MG TABS 1 PO Q D PROPRANOL OL HCL 21105930291 No Longer Active Perez Mora MD Active CHERATUSSIN AC 100-10 MG/5ML SYRP take one tsp po Q 6hours prn c ough GUAIFENESIN-CODEINE 63479913641 No Longer Active Perez Means Active AUGMENTIN 875-125 MG TAB 1 tab by mouth twice daily with food 20 12/03/31 AMOXICILLIN-POT CLAVULANATE 98655594741 No Longer Active Chanel Mora MD Active CHERATUSSIN AC 100-10 MG/5ML SYRP 1 tsp by mouth every 4 hours as needed for cough GUAIFENESIN-CODEINE 33742786188 No Longer Activ e Hugo Restrepo MD Active ACETAMINOPHEN-CODEINE #3 300-30 MG TABS 1 PO Q 4-6 HRS PRN PAIN ACETAMINOPHEN-CODEINE 76701322262 No Longer Active Hugo Restrepo MD Active LEVAQUIN 500 MG TABS take one po QD LEVOFLOXACI N 33443364803 No Longer Active Griffin HERNANDEZ Active PREDNISONE 20 MG TAB Take 3 tabs daily for 3 days , 2 tabs daily for 3 days, 1 tab daily for 3 days, 1/2 tab daily for 3 days P REDNISONE 47466291768 No Longer Active Carlton Hu MD Active AVELOX 400 MG TABS 1 tab by mouth daily MOXIFLO XACIN HCL 11136566510 No Longer Active Carlton Hu MD Active CHERATUSSIN AC 100-10 MG/5ML SYRP 1 tsp by mouth every 4 hours as needed for cough GUAIFENESIN-CODEINE 05303011004 No Longer Activ e Hugo Restrepo MD Active AVELOX 400 MG TABS 1 tab by mouth daily MOXIFLO XACIN HCL 67410949548 No Longer Active Marcy De La Rosa MD PhD Active TERBINAFINE HCL 250 MG TABS 1 qDay TERBINAF INE HCL 27835095898 No Longer Active Marcy De La Rosa MD PhD Active CHERATUSSIN AC 100-10 MG/5ML SYRP 1 tsp by mouth every 4 hours as needed for cough GUAIFENESIN-CODEINE 30474355140 No Longer Activ e Marcy De La Rosa MD PhD Active AVELOX 400 MG TABS 1 tab by mouth daily MOXIFLO XACIN HCL 25046344523 No Longer Active Marcy De La Rosa MD PhD Active HYDROCODONE-ACETAMINOPHEN 5-325 MG TABS 1 po q 6hr PRN cough 201 05/09/16 HYDROCODONE-ACETAMINOPHEN 17821258102 No Longer Active Marcy De La Rosa MD PhD Active PREDNISONE 20 MG TAB 2 tabs daily for 3 days, 1 t ab daily for 3 days, 1/2 tab daily for 2 days PREDNISONE 81823972119 No Longer Active Carlton Hu MD Active CEFDINIR 300 MG CAPS by mouth twice a day CEFDI ODILIA 85865679763 No Longer Active Carlton Hu MD Active HYDROCHLOROTHIAZIDE 25 MG TABS 1 TAB PO DAILY H YDROCHLOROTHIAZIDE 33821890414 Active Carlton Hu MD Active ACETAMINOPHEN-CODEINE #3 300-30 MG TABS 1 tablet po q 4-6hrs prn pain ACETAMINOPHEN-CODEINE 74386255118 No Longer Active Ridge Bess DO Active ZITHROMAX 250 MG TAB 2 po today, then 1 po q days 2-5 AZITHROMYCIN 03881398531 No Longer Active Carlton Hu MD Acti ve CHERATUSSIN AC 100-10 MG/5ML SYRP take 1 tsp po q4-6 hours prn c ough GUAIFENESIN-CODEINE 31125181870 No Longer Active Carlton Hu MD Active ACETAMINOPHEN-CODEINE #3 300-30 MG TABS 1 PO Q 4-6 HR PRN PAIN 2 ACETAMINOPHEN-CODEINE 59271093900 No Longer Active Carlton rich MD Active LORTAB 7.5-500 MG/15ML ELIX 7.5 ml po q 4 hour prn cough HYDROCODONE-ACETAMINOPHEN 76913203759 No Longer Active Carlton Hu MD Active PREDNISONE 20 MG TAB 1 po bid 3 days, then 1 po q day 3 days 201 05/03/07 PREDNISONE 38678372868 No Longer Active Carlton Hu MD Active ELMIRON 100 MG CAPS 2 tablets in the am and 1 tablet at hs PENTOSAN POLYSULFATE SODIUM 07576620590 Active Carlton Hu MD Ac tive CEFDINIR 300 MG CAPS by mouth twice a day CEFDI ODILIA 22082864542 No Longer Active Carlton Hu MD Active CEFDINIR 300 MG CAPS by mouth twice a day CEFDI ODILIA 28173317163 No Longer Active Carlton Hu MD Active CEFDINIR 300 MG CAPS by mouth twice a day CEFDI ODILIA 59191086320 No Longer Active Carlton Hu MD Active TESSALON PERLES 100 MG CAP 1 tablet by mouth 3 times daily a s needed for cough BENZONATATE 79602986779 No Longer Active Carlton bustamante MD Active CEFDINIR 300 MG CAPS by mouth twice a day CEFDI ODILIA 16779917488 No Longer Active Carlton Hu MD Active ZITHROMAX Z-REYNA 250 MG TABS 2 today, then 1 daily for 4 days 201 04/09/17 AZITHROMYCIN 74184187917 No Longer Active Hugo Restrepo MD Active TESSALON PERLES 100 MG CAP 1 tablet by mouth 3 times daily a s needed for cough TESSALON PERLES 100 MG CAP 806553 BENZONATATE I nactive PREDNISONE 20 MG TAB 1 po bid 3 days, then 1 po q day 3 days 201 05/03/07 PREDNISONE 20 MG TAB 407797 PREDNISONE Inactive LORTAB 7.5-500 MG/15ML ELIX 7.5 ml po q 4 hour prn cough LORTAB 7.5-500 MG/15ML ELIX HYDROCODONE-ACETAMINOPHEN Inacti ve ACETAMINOPHEN-CODEINE #3 300-30 MG TABS 1 PO Q 4-6 HR PRN PAIN 2 ACETAMINOPHEN-CODEINE #3 300-30 MG TABS 450557 ACETAMIN OPHEN-CODEINE Inactive CHERATUSSIN AC 100-10 MG/5ML SYRP take 1 tsp po q4-6 hours prn c ough CHERATUSSIN AC 100-10 MG/5ML SYRP 952844 GUAIFENESIN-CO DEINE Inactive ACETAMINOPHEN-CODEINE #3 300-30 MG TABS 1 tablet po q 4-6hrs prn pain ACETAMINOPHEN-CODEINE #3 300-30 MG TABS 844571 ACETAMIN OPHEN-CODEINE Inactive HYDROCODONE-ACETAMINOPHEN 5-325 MG TABS 1 po q 6hr PRN cough 201 05/09/16 HYDROCODONE-ACETAMINOPHEN 5-325 MG TABS 366109 HYDROCODONE-ACETAMINOPHEN Inactive AVELOX 400 MG TABS 1 tab by mouth daily A VELOX 400 MG TABS 716822 MOXIFLOXACIN HCL Inactive CHERATUSSIN AC 100-10 MG/5ML SYRP 1 tsp by mouth every 4 hours as needed for cough CHERATUSSIN AC 100-10 MG/5ML SYRP 244621 GUAIFENESIN-CODEINE Inactive TERBINAFINE HCL 250 MG TABS 1 qDay TERBINAFINE HCL 250 MG TABS 767628 TERBINAFINE HCL Inactive CHERATUSSIN AC 100-10 MG/5ML SYRP 1 tsp by mouth every 4 hours as needed for cough CHERATUSSIN AC 100-10 MG/5ML SYRP 324945 GUAIFENESIN-CODEINE Inactive ACETAMINOPHEN-CODEINE #3 300-30 MG TABS 1 PO Q 4-6 HRS PRN PAIN ACETAMINOPHEN-CODEINE #3 300-30 MG TABS 796513 ACETAMINOPHEN-CODEIN E Inactive CHERATUSSIN AC 100-10 MG/5ML SYRP 1 tsp by mouth every 4 hours as needed for cough CHERATUSSIN AC 100-10 MG/5ML SYRP 344912 GUAIFENESIN-CODEINE Inactive AUGMENTIN 875-125 MG TAB 1 tab by mouth twice daily with food 20 12/03/31 AUGMENTIN 875-125 MG TAB 434220 AMOXICILLIN-POT CLAVULA EFE Inactive CHERATUSSIN AC 100-10 MG/5ML SYRP take one tsp po Q 6hours prn c ough CHERATUSSIN AC 100-10 MG/5ML SYRP 717340 GUAIFENESIN-CO DEINE Inactive PROPRANOLOL HCL 60 MG TABS 1 PO Q D P ROPRANOLOL HCL 60 MG TABS 148920 PROPRANOLOL HCL Inactive TOPAMAX 50 MG TABS take 1 tab po BID for migraines. 12/07/10 TOPAMAX 50 MG TABS 849641 TOPIRAMATE Inactive TOPAMAX 25 MG TABS 1 qHS x 1 week, then 1 BID x 1 week, then 1 qAM and 2 qHS x 1 week, then 2 BID (migraine prevention) TOPAMAX 2 5 MG TABS 533174 TOPIRAMATE Inactive LYRICA 75 MG CAPS TAKE 1 CAPSULE BY MOUTH TWICE DAILY LYRICA 75 MG CAPS PREGABALIN Inactive SYMBICORT 160-4.5 MCG/ACT AERO 2 puffs bid with rinse after 2011 SYMBICORT 160-4.5 MCG/ACT AERO BUDESONIDE-FORMOT SÁNCHEZ FUMARATE Inactive PROMETHAZINE-CODEINE 6.25-10 MG/5ML SYRP 1 tsp by mouth ever y 8 hours prn cough PROMETHAZINE-CODEINE 6.25-10 MG/5ML SYRP 788335 PROMETHAZINE-CODEINE Inactive CYMBALTA 30 MG CPEP 1 cap by mouth daily CYMBALTA 30 MG CPEP 024384 DULOXETINE HCL Inactive PREMARIN 0.625 MG TABS TAKE 1 TAB BY MOUTH DAILY 07/25 PREMARIN 0.625 MG TABS ESTROGENS CONJUGATED Inactive CHERATUSSIN AC 100-10 MG/5ML SYRP 1 tsp by mouth every 4 hours as needed for cough CHERATUSSIN AC 100-10 MG/5ML SYRP 987132 GUAIFENESIN-CODEINE Inactive PROMETHAZINE-CODEINE 6.25-10 MG/5ML SYRP 1 tsp by mout h every 6 hours if needed for cough PROMETHAZINE-CODEINE 6.25-10 MG/5ML SYRP 726299 PROMETHAZINE-CODEINE Inactive CHERATUSSIN AC 100-10 MG/5ML SYRP 1 tsp by mouth every 4 hours as needed for cough CHERATUSSIN AC 100-10 MG/5ML SYRP 644922 GUAIFENESIN-CODEINE Inactive FLUTICASONE PROPIONATE 50 MCG/ACT SUSP 1 to 2 sprays each no stril daily FLUTICASONE PROPIONATE 50 MCG/ACT SUSP 5727707 FLUTICASONE PROPIONATE Inactive PREDNISONE 20 MG ORAL TABS 3 tab PO qd x 2d, 2 tab PO qd x 2d, 1 tab PO qd x 2d, 1/2 tab PO qd x 2d PREDNISONE 20 MG ORAL TABS 184573 PREDNISONE Inactive LEVOFLOXACIN 500 MG ORAL TABS 1 tab PO daily x 10 days LEVOFLOXACIN 500 MG ORAL TABS 113313 LEVOFLOXACIN Inactive CYCLOBENZAPRINE HCL 10 MG TABS 1 tablet by mouth BID prn had cherelle n CYCLOBENZAPRINE HCL 10 MG TABS 191443 CYCLOBENZAPRINE H CL Inactive ZOCOR 40 MG TAB 1 tab by mouth daily ZOCOR 40 M G TAB 666472 SIMVASTATIN Inactive TUSSIONEX PENNKINETIC ER 10-8 MG/5ML LQCR 5ml po q12hr PRN Cough TUSSIONEX PENNKINETIC ER 10-8 MG/5ML LQCR HYDROCOD POLST-CHLORPHEN POLST Inactive ZITHROMAX Z-REYNA 250 MG TABS 2 today, then 1 daily for 4 days 201 04/09/17 ZITHROMAX Z-REYNA 250 MG TABS 5441198 AZITHROMYCIN Inac tive CEFDINIR 300 MG CAPS [...] q days 2-5 ZITHROMAX 250 MG TAB 1210913 AZITHROMYCIN Inactive CEFDINIR 300 MG CAPS by mouth twice a day CEFDINIR 300 MG CAPS 20020704 CEFDINIR Inactive PREDNISONE 20 MG TAB 2 tabs daily for 3 days, 1 t ab daily for 3 days, 1/2 tab daily for 2 days PREDNISONE 20 MG TAB 874559 PREDNISON E Inactive AVELOX 400 MG TABS 1 tab by mouth daily A VELOX 400 MG TABS 037990 MOXIFLOXACIN HCL Inactive AVELOX 400 MG TABS 1 tab by mouth daily A VELOX 400 MG TABS 377781 MOXIFLOXACIN HCL Inactive PREDNISONE 20 MG TAB Take 3 tabs daily for 3 days , 2 tabs daily for 3 days, 1 tab daily for 3 days, 1/2 tab daily for 3 days PREDNISONE 20 MG TAB 484785 PREDNISONE Inactive LEVAQUIN 500 MG TABS take one po QD LEVAQUIN 50 0 MG TABS 162009 LEVOFLOXACIN Inactive AZITHROMYCIN 250 MG TABS 2 po qd x 1 day, then 1 po qd x 4 days AZITHROMYCIN 250 MG TABS 1059362 AZITHROMYCIN Inactiv e MEDROL (REYNA) 4 MG TABS 6 tabs on day 1, 5 tabs on d ay 2, 4 tabs on day 3, 3 tabs on day 4, 2 tabs on day 5, 1 tab on day 6 MEDROL (REYNA) 4 MG TABS 140850 METHYLPREDNISOLONE Inactive CHERATUSSIN AC 100-10 MG/5ML SYRP 5ml po q6hr PRN Cough CHERATUSSIN AC 100-10 MG/5ML SYRP 101888 GUAIFENESIN-CODEINE Inacti ve TRIAMCINOLONE ACETONIDE 0.1 % CREA apply three times daily prn r beatrice TRIAMCINOLONE ACETONIDE 0.1 % [facility] 8505872 TRIAMCINOLONE ACETONIDE Inactive AZITHROMYCIN 250 MG TABS 2 po qd x 1 day, then 1 po qd x 4 days AZITHROMYCIN 250 MG TABS 1368449 AZITHROMYCIN Inactiv e MEDROL (REYNA) 4 MG TABS 6 pills x 1 day, then 5 pill s x 1 day then 4 pills x 1 day, then 3 pills x 1 day, then 2 pills x 1 day, then 1 pill x 1 day, then stop MEDROL (REYNA) 4 MG TABS 362198 METHYLPREDNISOLONE Inactive AMOXICILLIN 500 MG CAP 1 tab by mouth 3 times daily x 10 days 20 13/03/08 AMOXICILLIN 500 MG CAP 665751 AMOXICILLIN Inactive AMOXICILLIN 500 MG CAP 1 tab by mouth 3 times daily x 10 days 20 14/04/28 AMOXICILLIN 500 MG CAP 906596 AMOXICILLIN Inactive ZITHROMAX 250 MG TAB 2 po today, then 1 po q days 2-5 ZITHROMAX 250 MG TAB 0695039 AZITHROMYCIN Inactive AUGMENTIN 875-125 MG TAB 1 po BID x 10 days AUGMENTIN 875- 125 MG TAB 263991 AMOXICILLIN-POT CLAVULANATE Inactive ZITHROMAX Z-REYNA 250 MG TABS 2 today, then 1 daily for 4 days 201 08/07/20 ZITHROMAX Z-REYNA 250 MG TABS 9431102 AZITHROMYCIN Inac tive ZITHROMAX 250 MG TAB 2 po today, then 1 po q days 2-5 ZITHROMAX 250 MG TAB 2025803 AZITHROMYCIN Inactive ZITHROMAX Z-REYNA 250 MG TABS 2 today, then 1 daily for 4 days 201 08/30/03 ZITHROMAX Z-REYNA 250 MG TABS 0595113 AZITHROMYCIN Inac tive CEFDINIR 300 MG CAPS 1 po BID x 10 days C EFDINIR 300 MG CAPS 919456 CEFDINIR Inactive ZITHROMAX 250 MG TAB 2 po today, then 1 po q days 2-5 ZITHROMAX 250 MG TAB 0591465 AZITHROMYCIN Inactive LEVAQUIN 500 MG TAB 1 tablet by mouth daily LEVAQUIN 500 MG TAB 332657 LEVOFLOXACIN Inactive SINGULAIR 10 MG TABS 1 po qday for allergies 2 SINGULAIR 10 MG TABS 20010504 MONTELUKAST SODIUM Inactive AMOXICILLIN 500 MG CAPS 2 po BID x 10 days AMOXICILLIN 500 MG CAPS 552572 AMOXICILLIN Inactive PREDNISONE 20 MG TAB 2 tabs daily for 3 days, 1 t ab daily for 3 days, 1/2 tab daily for 2 days PREDNISONE 20 MG TAB 408162 PREDNISON E Inactive ZITHROMAX Z-REYNA 250 MG TABS 2 today, then 1 daily for 4 days 201 09/29/14 ZITHROMAX Z-REYNA 250 MG TABS 5354596 AZITHROMYCIN Inac tive Vital Signs Date Name [...] Measured Encounters Code Encounter Date Provider Facility CPT-45070 Level 3 Est. Patient 14:22:19 TABULATING SUPERVISOR Diya cobian [facility] CPT-90043 Level 3 Est. Patient 10:11:46 CDT Carlton rich MD [facility] CPT-30474 Level 3 Est. Patient 17:29:43 CDT Italo CASTING MACHINE OPERATOR [facility] CPT-38181 Level 3 Est. Patient 11:58:06 CDT Italo CASTING MACHINE OPERATOR [facility] CPT-04021 Level 4 Est. Patient 14:36:51 CDT Carlton rich MD [facility] CPT-36286 Level 3 Est. Patient 18:16:00 TABULATING SUPERVISOR Blaine HERNANDEZ [facility] CPT-06838 Level 3 Est. Patient 09:45:49 TABULATING SUPERVISOR [facility] Level 3 Est. Patient 13:19:20 CDT Carlton rich MD [facility]-52433 Level 3 Est. Patient 13:06:43 CDT Ridge tam DO [facility] CPT-23032 Level 3 Est. Patient 10:03:07 CDT Perez Mora MD [facility] CPT-12642 Level 3 Est. Patient 19:50:35 TABULATING SUPERVISOR Carlton rich MD [facility] CPT-64402 Level 4 Est. Patient 18:05:01 TABULATING SUPERVISOR Carlton rich MD [facility]-82896 Level 3 Est. Patient 10:45:55 TABULATING SUPERVISOR Hugo Restrepo MD [facility]-91205 Level 3 Est. Patient 14:12:49 CDT Griffin HERNANDEZ [facility] CPT-52309 Level 3 Est. Patient 17:37:24 CDT Carlton rich MD [facility]-66070 Level 3 Est. Patient 16:51:54 CDT Carlton rich MD [facility]-44265 Level 3 Est. Patient 12:18:11 CDT Hugo Restrepo MD [facility] CPT-30426 Level 3 Est. Patient 11:30:25 CDT Marcy crisostomo MD PhD [facility] CPT-28278 Level 3 Est. Patient 12:00:47 TABULATING SUPERVISOR Carlton rich MD [facility]-52815 Level 3 Est. Patient 16:31:06 TABULATING SUPERVISOR Carlton rich MD [facility]-43258 Level 3 Est. Patient 16:23:24 TABULATING SUPERVISOR Ridge tam DO [facility]-59468 Level 3 Est. Patient 12:34:12 CDT Carlton rich MD [facility] CPT-93390 Level 2 Est. Patient 15:43:33 CDT Robi armstrong MD [facility] CPT-92551 Level 4 Est. Patient 14:04:44 CDT Carlton rich MD [facility] CPT-86229 Level 3 Est. Patient 05:47:59 CDT Ridge Jaun Celeste tam DO [facility] CPT-45474 Level 3 Est. Patient 13:12:53 TABULATING SUPERVISOR Carlton rich MD [facility] CPT-82337 Level 3 Est. Patient 14:26:53 CDT Hugo Restrepo MD [facility] Procedures Code Procedure Name Date Entry Date Standard Desc ription CPT-J0696 Rocephin 1gm Inj Solr 14:32:13 CDT CPT-J1020 Depo Medrol 60 mg (Methyl Prednisolone A cetate) 14:32:13 CDT CPT-J1100 Decadron 6mg (Dexamethasone) 14:32:13 CDT 2 CPT-26912 Hip bilat min 2V w AP pelvis 13:16:20 CDT 2 CPT-17404 Pelvis only 13:07:33 CDT CPT-76690 Spec Collection and Handling Fee 11:25:12 C DT CPT-92974 Fluzone Quadrivalent Intramuscular Suspe nsion 0.5 ML 14:31:55 CDT CPT-85370 Abx/Therapy Injection 13:28:47 TABULATING SUPERVISOR CPT-J2930 Solu Medrol 125 mg (Methyl Prednisolone Sodium Succinate) 12:00:47 TABULATING SUPERVISOR CPT-66108 Venipuncture Draw Fee 11:33:31 CDT CPT-37422 EKG Trac and Interp 11:21:09 CDT CPT-38973 Chest 2V Frontal and Lat 11:21:09 CDT 12/15 CPT-09937 Venipuncture Draw Fee 08:02:34 CDT CPT-03948 Chest 2V Frontal and Lat 05:47:59 CDT 06/05
--- OUTSIDE RECORDS SUMMARY | 2019-10-08 09:45 | XMS REPORT | Clinical Summary ---
Author Author Caitlin, Juliana Martinez Organization [employer] [facility] Address Unknown Phone Unavailable Allergies, [...] SEASONAL ALLERGIC RHINITIS 477.9 Active 1 Carlton uH MD Allergic rhinitis, cause unspecified [...] po qd x 5 days P REDNISONE 36983503967 No Longer Active Perez Mora MD Active PROAIR HFA 108 (90 BASE) MCG/ACT INHALATION AEROSOL SO LUTION 2 puffs four times a day as needed ALBUTEROL SULFATE 02242566343 No Long er Active Becky FUENTES Active ASPIRIN 81 MG ORAL TABLET 1 po qd ASPIRIN 65387086475 Active Carlton Hu MD Active PREDNISONE 20 MG ORAL TABLET 1 tab twice daily for 3 d ay, then one daily for three days PREDNISONE 04560233445 No Longer Active Carlton Hu MD Active AUGMENTIN 875-125 MG ORAL TABLET 1 po BID x 10 days 16/03/22 AMOXICILLIN-POT CLAVULANATE 01152586580 No Longer Active Elise Garcia APRN Active TERBINAFINE HCL 250 MG ORAL TABLET 1 qDay for nail fungus 7 TERBINAFINE HCL 71616550848 No Longer Active Carlton Hu MD A ctive TUSSIONEX PENNKINETIC ER 10-8 MG/5ML ORAL SUSPENSION E XTENDED RELEASE 5ml po q12hr PRN Cough HYDROCOD POLST-CHLORPHEN POLST 77730070406 Active Perez Mora MD Active AMOXICILLIN 500 MG ORAL CAPSULE 1 cap by mouth three times a day AMOXICILLIN 85361148208 No Longer Active Carlton Hu MD Active ELMIRON 100 MG ORAL CAPSULE 2 tablets in the am and 1 tablet at hs PENTOSAN POLYSULFATE SODIUM 03368667364 No Longer Active Robert Hu MD Active MUCINEX D 60-600 MG ORAL TABLET EXTENDED RELEASE 12 HOUR 1 t ab po q am PSEUDOEPHEDRINE-GUAIFENESIN 25640079649 No Longer Act nael Carlton Hu MD Active MUCINEX DM MAXIMUM STRENGTH 60-1200 MG ORAL TABLET EXT ENDED RELEASE 12 HOUR 1 tab po q am DEXTROMETHORPHAN-GUAIFENESIN 01625581725 No Longer Active Carlton Hu MD Active TUSSIONEX PENNKINETIC ER 10-8 MG/5ML ORAL SUSPENSION E XTENDED RELEASE 5ml po q12hr PRN Cough HYDROCOD POLST-CHLORPHEN POLST 5 4876317765 No Longer Active Carlton Hu MD Active POTASSIUM CHLORIDE ER 20 MEQ ORAL TABLET EXTENDED RELE ASE Take 1 by mouth 4 times daily for 7 days POTASSIUM CHLORIDE 92248450334 No Longer Active Carlton Hu MD Active ZITHROMAX 250 MG ORAL TABLET 2 po today, then 1 po q days 2-5 20 14/09/04 AZITHROMYCIN 63645989732 No Longer Active Elise Garcia APRN Active TUSSIONEX PENNKINETIC ER 10-8 MG/5ML ORAL SUSPENSION E XTENDED RELEASE 5 ml twice a day as needed for cough HYDROCOD POLST-CHLORPH EN POLST 36570310492 No Longer Active Elise Garcia APRN Active MONTELUKAST SODIUM 10 MG ORAL TABLET 1 po daily for Allergy MONTELUKAST SODIUM 90347968825 Active Carlton Hu MD Ac tive TUSSIONEX PENNKINETIC ER 10-8 MG/5ML ORAL SUSPENSION E XTENDED RELEASE 5ml po q12hr PRN Cough HYDROCOD POLST-CHLORPHEN POLST 5 2475452983 No Longer Active Hugo Restrepo MD Active GABAPENTIN 100 MG ORAL CAPSULE 1 po BID for fibromyalgia GABAPENTIN 28956163970 Active Carlton Hu MD Active LYRICA 100 MG ORAL CAPSULE Take 1 tab po BID for fibromyalgia 20 11/08/21 PREGABALIN 78629724823 No Longer Active Elise Garcia APRN A ctive PREDNISONE 20 MG ORAL TABLET 2 tabs daily for 3 days, 1 tab daily for 3 days, 1/2 tab daily for 2 days PREDNISONE 97747979578 No Longer Active Diya De Guzman APRN Active TUSSIONEX PENNKINETIC ER 10-8 MG/5ML ORAL SUSPENSION E XTENDED RELEASE 5 mL PO q 12 hrs PRN cough HYDROCOD POLST-CHLORPHEN POLST 500393 23194 No Longer Active Jillina Gege RICEN Active FLUTICASONE PROPIONATE 50 MCG/ACT NASAL SUSPENSION 2 s prays each nostril daily until bottle is empty FLUTICASONE PROPIONATE 941361900 99 No Longer Active Diya De Guzman APRN Active ASMANEX 60 METERED DOSES 220 MCG/INH INHALATION AEROSO L POWDER BREATH ACTIVATED 1 puff bid with rinse after MOMETASONE FUROATE 1261402 4102 No Longer Active Diya De Guzman SERVICE DELIVERY ANALYST Active ZITHROMAX Z-REYNA 250 MG ORAL TABLET 2 today, then 1 daily for 4 d ays AZITHROMYCIN 06175444804 No Longer Active Elise Garcia APRN Active TUSSIONEX PENNKINETIC ER 10-8 MG/5ML ORAL SUSPENSION E XTENDED RELEASE 5ml po q12hr PRN Cough HYDROCOD POLST-CHLORPHEN POLST 5 7822931718 No Longer Active Elise Garcia APRN Active PREDNISONE 20 MG ORAL TABLET 2 tabs daily for 3 days, 1 tab daily for 3 days, 1/2 tab daily for 2 days PREDNISONE 17975555086 No Longer Active Diya De Guzman APRN Active AMOXICILLIN 500 MG ORAL CAPSULE 2 po BID x 10 days 201 09/29/08 AMOXICILLIN 62671013185 No Longer Active Diya De Guzman APRN Act nael SINGULAIR 10 MG ORAL TABLET 1 po qday for allergies 20 14/01/12 MONTELUKAST SODIUM 34763411052 No Longer Active Carlton Hu MD Active LEVAQUIN 500 MG ORAL TABLET 1 tablet by mouth daily 20 13/09/24 LEVOFLOXACIN 17111212793 No Longer Active Carlton Hu MD Acti ve FLUTICASONE PROPIONATE 50 MCG/ACT NASAL SUSPENSION 2 s prays each nostril daily for 2 weeks, then 1 spray each nostril daily. FLUTICASONE PROPIONATE 06840166925 Active Elise Garcia APRN Active ZITHROMAX 250 MG ORAL TABLET 2 po today, then 1 po q days 2-5 20 13/08/10 AZITHROMYCIN 40196226514 No Longer Active Elise Garcia APRN Active XANAX 0.5 MG ORAL TABLET one tablet by mouth daily prn anxiety 2015 ALPRAZOLAM 39346109325 Active Carlton Hu MD Active CYMBALTA 30 MG ORAL CAPSULE DELAYED RELEASE PARTICLES 1 cap by mouth daily for depression DULOXETINE HCL 47823303660 Active Carlton beltrán MD Active CEFDINIR 300 MG ORAL CAPSULE 1 po BID x 10 days CEFDINIR 39062625945 No Longer Active Carlton Hu MD Active ZOCOR 40 MG ORAL TABLET 1 tab by mouth daily SI MVASTATIN 17787178010 No Longer Active Carlton Hu MD Active CYCLOBENZAPRINE HCL 10 MG ORAL TABLET 1 tablet by mouth BID prn had pain CYCLOBENZAPRINE HCL 37256212425 No Longer Active Jayden Hu MD Active LEVOFLOXACIN 500 MG ORAL TABLET 1 tab PO daily x 10 days LEVOFLOXACIN 94089950435 No Longer Active Carlton Hu MD Acti ve PREDNISONE 20 MG ORAL TABLET 3 tab PO qd x 2d, 2 tab P O qd x 2d, 1 tab PO qd x 2d, 1/2 tab PO qd x 2d PREDNISONE 55238623747 No Lo nger Active Carlton Hu MD Active FLUTICASONE PROPIONATE 50 MCG/ACT NASAL SUSPENSION 1 t o 2 sprays each nostril daily FLUTICASONE PROPIONATE 24947278469 No Longer Ac tive Blaine HERNANDEZ Active CHERATUSSIN AC 100-10 MG/5ML ORAL SYRUP 1 tsp by mouth every 4 hours as needed for cough GUAIFENESIN-CODEINE 96965261131 No Longe r Active Blaine HERNANDEZ Active PROMETHAZINE-CODEINE 6.25-10 MG/5ML ORAL SYRUP 1 tsp b y mouth every 6 hours if needed for cough PROMETHAZINE-CODEINE 95289451712 No Longer Active Blaine HERNANDEZ Active CHERATUSSIN AC 100-10 MG/5ML ORAL SYRUP 1 tsp by mouth every 4 hours as needed for cough GUAIFENESIN-CODEINE 90254723054 No Longe r Active Blaine HERNANDEZ Active ZITHROMAX Z-REYNA 250 MG ORAL TABLET 2 today, then 1 daily for 4 d ays AZITHROMYCIN 47025479321 No Longer Active Columba Raida Act nael ZITHROMAX 250 MG ORAL TABLET 2 po today, then 1 po q days 2-5 20 14/03/21 AZITHROMYCIN 69686304318 No Longer Active Carlton Hu MD Active ZITHROMAX Z-REYNA 250 MG ORAL TABLET 2 today, then 1 daily for 4 d ays AZITHROMYCIN 19722641005 No Longer Active Columba Raida Act nael AUGMENTIN 875-125 MG ORAL TABLET 1 po BID x 10 days 13/01/20 AMOXICILLIN-POT CLAVULANATE 29565697360 No Longer Active Diya De Guzman APRN Active ZITHROMAX 250 MG ORAL TABLET 2 po today, then 1 po q days 2-5 20 12/08/14 AZITHROMYCIN 64942669535 No Longer Active Carlton Hu MD Active TRAMADOL HCL 50 MG ORAL TABLET 1 po tid with ES Tylenol TRAMADOL HCL 35071099092 Active Carlton Hu MD Active PREMARIN 0.625 MG ORAL TABLET TAKE 1 TAB BY MOUTH DAILY ESTROGENS CONJUGATED 76989631437 No Longer Active Ridge Bess DO A ctive CYMBALTA 30 MG ORAL CAPSULE DELAYED RELEASE PARTICLES 1 cap by mouth daily DULOXETINE HCL 01487543017 No Longer Active Ridge tam DO Active AMOXICILLIN 500 MG ORAL CAPSULE 1 tab by mouth 3 times daily x 10 days AMOXICILLIN 64683480701 No Longer Active Carlton bustamante MD Active AMOXICILLIN 500 MG ORAL CAPSULE 1 tab by mouth 3 times daily x 10 days AMOXICILLIN 86284357627 No Longer Active Carlton bustamante MD Active PROMETHAZINE-CODEINE 6.25-10 MG/5ML ORAL SYRUP 1 tsp b y mouth every 8 hours prn cough PROMETHAZINE-CODEINE 58141758728 No Longer Acti ve Carlton Hu MD Active MEDROL 4 MG ORAL TABLET THERAPY PACK 6 pills x 1 day, then 5 pills x 1 day then 4 pills x 1 day, then 3 pills x 1 day, then 2 pills x 1 day, then 1 pill x 1 day, then stop METHYLPREDNISOLONE 19568501279 No Long er Active Perez Mora MD Active AZITHROMYCIN 250 MG ORAL TABLET 2 po qd x 1 day, then 1 po q d x 4 days AZITHROMYCIN 96058327175 No Longer Active Perez Ambriz MD Active SYMBICORT 160-4.5 MCG/ACT INHALATION AEROSOL 2 puffs bid wit h rinse after BUDESONIDE-FORMOTEROL FUMARATE 65390260242 N o Longer Active Perez Mora MD Active LYRICA 75 MG ORAL CAPSULE TAKE 1 CAPSULE BY MOUTH TWICE DAILY PREGABALIN 18901623707 No Longer Active Carlton Hu MD Acti ve TOPAMAX 25 MG ORAL TABLET 1 qHS x 1 week, then 1 BID x 1 week, then 1 qAM and 2 qHS x 1 week, then 2 BID (migraine prevention) T OPIRAMATE 93361472500 No Longer Active Jerica FUENTES Active TOPAMAX 50 MG ORAL TABLET take 1 tab po BID for migraines. 07/02 TOPIRAMATE 40749051545 No Longer Active Jerica FUENTES Active TOPAMAX 100 MG ORAL TABLET Take 1 tablet po bid TO PIRAMATE 49880178386 Active Carlton Hu MD Active TRIAMCINOLONE ACETONIDE 0.1 % EXTERNAL CREAM apply three roger es daily prn rash TRIAMCINOLONE ACETONIDE 38544821880 No Longer Active Carlton Hu MD Active PAXIL 40 MG ORAL TABLET take 1 tab po qday for depression 0 PAROXETINE HCL 10966368147 Active Carlton Hu MD Active CHERATUSSIN AC 100-10 MG/5ML ORAL SYRUP 5ml po q6hr PRN Cough 20 13/04/14 GUAIFENESIN-CODEINE 70237878374 No Longer Active Carlton Hu MD Active MEDROL 4 MG ORAL TABLET THERAPY PACK 6 tabs on day 1, 5 tabs on day 2, 4 tabs on day 3, 3 tabs on day 4, 2 tabs on day 5, 1 tab on day 6 2013 METHYLPREDNISOLONE 30120909297 No Longer Active Perez Mora MD Active AZITHROMYCIN 250 MG ORAL TABLET 2 po qd x 1 day, then 1 po q d x 4 days AZITHROMYCIN 21228462353 No Longer Active Perez Ambriz MD Active PROPRANOLOL HCL 60 MG ORAL TABLET 1 PO Q D PROPRANOLOL HCL 20482749543 No Longer Active Perez Mora MD Activ e CHERATUSSIN AC 100-10 MG/5ML ORAL SYRUP take one tsp po Q 6h ours prn cough GUAIFENESIN-CODEINE 93734733069 No Longer Active Zia Mora MD Active AUGMENTIN 875-125 MG ORAL TABLET 1 tab by mouth twice daily with food AMOXICILLIN-POT CLAVULANATE 78378657074 No Longer Act nael Perez Mora MD Active CHERATUSSIN AC 100-10 MG/5ML ORAL SYRUP 1 tsp by mouth every 4 hours as needed for cough GUAIFENESIN-CODEINE 23298577963 No Longe r Active Hugo Restrepo MD Active ACETAMINOPHEN-CODEINE #3 300-30 MG ORAL TABLET 1 PO Q 4-6 HRS RI N PAIN ACETAMINOPHEN-CODEINE 47073026520 No Longer Active Hugo Restrepo MD Active LEVAQUIN 500 MG ORAL TABLET take one po QD LEVO FLOXACIN 28768329226 No Longer Active Griffin HERNANDEZ Active PREDNISONE 20 MG ORAL TABLET Take 3 tabs daily for 3 d ays, 2 tabs daily for 3 days, 1 tab daily for 3 days, 1/2 tab daily for 3 days 11/07 PREDNISONE 09224043795 No Longer Active Carlton Hu MD Acti ve AVELOX 400 MG ORAL TABLET 1 tab by mouth daily MOXIFLOXACIN HCL 73419112972 No Longer Active Carlton Hu MD Active CHERATUSSIN AC 100-10 MG/5ML ORAL SYRUP 1 tsp by mouth every 4 hours as needed for cough GUAIFENESIN-CODEINE 55832921113 No Longe r Active Hugo Restrepo MD Active AVELOX 400 MG ORAL TABLET 1 tab by mouth daily MOXIFLOXACIN HCL 73459478090 No Longer Active Marcy De La Rosa MD PhD Active TERBINAFINE HCL 250 MG ORAL TABLET 1 qDay T ERBINAFINE HCL 46391431404 No Longer Active Marcy De La Rosa MD PhD Active CHERATUSSIN AC 100-10 MG/5ML ORAL SYRUP 1 tsp by mouth every 4 hours as needed for cough GUAIFENESIN-CODEINE 82006861918 No Longe r Active Marcy De La Rosa MD PhD Active AVELOX 400 MG ORAL TABLET 1 tab by mouth daily MOXIFLOXACIN HCL 81900729293 No Longer Active Marcy De La Rosa MD PhD Active HYDROCODONE-ACETAMINOPHEN 5-325 MG ORAL TABLET 1 po q 6hr PRN co ugh HYDROCODONE-ACETAMINOPHEN 48221214304 No Longer Active Marcy De La Rosa MD PhD Active PREDNISONE 20 MG ORAL TABLET 2 tabs daily for 3 days, 1 tab daily for 3 days, 1/2 tab daily for 2 days PREDNISONE 46075434478 No Longer Active Carlton Hu MD Active CEFDINIR 300 MG ORAL CAPSULE by mouth twice a day 2011 CEFDINIR 49099192630 No Longer Active Carlton Hu MD Acti ve HYDROCHLOROTHIAZIDE 25 MG ORAL TABLET 1 TAB PO DAILY HYDROCHLOROTHIAZIDE 36194855771 Active Carlton Hu MD A ctive ACETAMINOPHEN-CODEINE #3 300-30 MG ORAL TABLET 1 tablet po q 4-6 hrs prn pain ACETAMINOPHEN-CODEINE 02715959335 No Longer Active Ridge Bess DO Active ZITHROMAX 250 MG ORAL TABLET 2 po today, then 1 po q days 2-5 20 03/07/07 AZITHROMYCIN 05252242485 No Longer Active Carlton Hu MD Active CHERATUSSIN AC 100-10 MG/5ML ORAL SYRUP take 1 tsp po q4-6 h ours prn cough GUAIFENESIN-CODEINE 05906860661 No Longer Active Jayden Hu MD Active ACETAMINOPHEN-CODEINE #3 300-30 MG ORAL TABLET 1 PO Q 4-6 HR PRN PAIN ACETAMINOPHEN-CODEINE 41452551847 No Longer Active Arnol Hu MD Active LORTAB 7.5-500 MG/15ML ORAL ELIXIR 7.5 ml po q 4 hour prn cough HYDROCODONE-ACETAMINOPHEN 10068817991 No Longer Active Carlton Hu MD Active PREDNISONE 20 MG ORAL TABLET 1 po bid 3 days, then 1 po q day 3 days PREDNISONE 71674951383 No Longer Active Carlton Hu MD Active CEFDINIR 300 MG ORAL CAPSULE by mouth twice a day 2011 CEFDINIR 00438564646 No Longer Active Carlton Hu MD Acti ve CEFDINIR 300 MG ORAL CAPSULE by mouth twice a day 2010 CEFDINIR 41359163554 No Longer Active Carlton Hu MD Acti ve CEFDINIR 300 MG ORAL CAPSULE by mouth twice a day 2010 CEFDINIR 92701090832 No Longer Active Carlton Hu MD Acti ve TESSALON PERLES 100 MG ORAL CAPSULE 1 tablet by mouth 3 times daily as needed for cough BENZONATATE 72639304860 No Longer Active Carlton Hu MD Active CEFDINIR 300 MG ORAL CAPSULE by mouth twice a day 2010 CEFDINIR 40505441194 No Longer Active Carlton Hu MD Acti ve ZITHROMAX Z-REYNA 250 MG ORAL TABLET 2 today, then 1 daily for 4 d ays AZITHROMYCIN 70715239218 No Longer Active Hugo Restrepo MD Active TESSALON PERLES 100 MG ORAL CAPSULE 1 tablet by mouth 3 times daily as needed for cough TESSALON PERLES 100 MG ORAL CAPSULE 54169 7 BENZONATATE Inactive PREDNISONE 20 MG ORAL TABLET 1 po bid 3 days, then 1 po q day 3 days PREDNISONE 20 MG ORAL TABLET 268325 PREDNISONE [place] ctive LORTAB 7.5-500 MG/15ML ORAL ELIXIR 7.5 [...] cough CHERATUSSIN AC 100-10 MG/5ML ORAL SYRUP 356140 GUAIFENESIN-CODEINE Inactive ACETAMINOPHEN-CODEINE #3 300-30 MG ORAL TABLET 1 tablet po q 4-6 hrs prn pain ACETAMINOPHEN-CODEINE #3 300-30 MG ORAL TABLET ACETAMINOPHEN-CODEINE Inactive HYDROCODONE-ACETAMINOPHEN 5-325 MG ORAL TABLET 1 po q 6hr PRN co ugh HYDROCODONE-ACETAMINOPHEN 5-325 MG ORAL TABLET 097144 HYDROCODONE-ACETAMINOPHEN Inactive AVELOX 400 MG ORAL TABLET 1 tab by mouth daily AVELOX 400 MG ORAL TABLET 596115 MOXIFLOXACIN HCL Inactive CHERATUSSIN AC 100-10 MG/5ML ORAL SYRUP 1 tsp by mouth every 4 hours as needed for cough CHERATUSSIN AC 100-10 MG/5ML ORAL SYRUP 9 15295 GUAIFENESIN-CODEINE Inactive TERBINAFINE HCL 250 MG ORAL TABLET 1 qDay 07/08 TERBINAFINE HCL 250 MG ORAL TABLET 842812 TERBINAFINE HCL Inactive CHERATUSSIN AC 100-10 MG/5ML ORAL SYRUP 1 tsp by mouth every 4 hours as needed for cough CHERATUSSIN AC 100-10 MG/5ML ORAL SYRUP 9 78231 GUAIFENESIN-CODEINE Inactive ACETAMINOPHEN-CODEINE #3 300-30 MG ORAL TABLET 1 PO Q 4-6 HRS RI N PAIN ACETAMINOPHEN-CODEINE #3 300-30 MG ORAL TABLET ACETAMINOPHEN-CODEINE Inactive CHERATUSSIN AC 100-10 MG/5ML ORAL SYRUP 1 tsp by mouth every 4 hours as needed for cough CHERATUSSIN AC 100-10 MG/5ML ORAL SYRUP 9 97700 GUAIFENESIN-CODEINE Inactive AUGMENTIN 875-125 MG ORAL TABLET 1 tab by mouth twice daily with food AUGMENTIN 875-125 MG ORAL TABLET 867553 AMOXICIL MADELINE-POT CLAVULANATE Inactive CHERATUSSIN AC 100-10 MG/5ML ORAL SYRUP take one tsp po Q 6h ours prn cough CHERATUSSIN AC 100-10 MG/5ML ORAL SYRUP 259676 GUAIFENESIN-CODEINE Inactive PROPRANOLOL HCL 60 MG ORAL TABLET 1 PO Q D PROPRANOLOL HCL 60 MG ORAL TABLET 259072 PROPRANOLOL HCL Inactive TOPAMAX 50 MG ORAL TABLET take 1 tab po BID for migraines. 07/02 TOPAMAX 50 MG ORAL TABLET 139045 TOPIRAMATE Inacti ve TOPAMAX 25 MG ORAL TABLET 1 qHS x 1 week, then 1 BID x 1 week, then 1 qAM and 2 qHS x 1 week, then 2 BID (migraine prevention) TOPAMAX 25 MG ORAL TABLET 026840 TOPIRAMATE Inactive LYRICA 75 MG ORAL CAPSULE TAKE 1 CAPSULE BY MOUTH TWICE DAILY LYRICA 75 MG ORAL CAPSULE PREGABALIN Inactive SYMBICORT 160-4.5 MCG/ACT INHALATION AEROSOL 2 puffs bid wit h rinse after SYMBICORT 160-4.5 MCG/ACT INHALATION AEROSOL BUDESONIDE- FORMOTEROL FUMARATE Inactive PROMETHAZINE-CODEINE 6.25-10 MG/5ML ORAL SYRUP 1 tsp b y mouth every 8 hours prn cough PROMETHAZINE-CODEINE 6.25-10 MG/ 5ML ORAL SYRUP 696157 PROMETHAZINE-CODEINE Inactive CYMBALTA 30 MG ORAL CAPSULE DELAYED RELEASE PARTICLES 1 cap by mouth daily CYMBALTA 30 MG ORAL CAPSULE DELAYED RELE ASE PARTICLES 872250 DULOXETINE HCL Inactive PREMARIN 0.625 MG ORAL TABLET TAKE 1 TAB BY MOUTH DAILY PREMARIN 0.625 MG ORAL TABLET ESTROGENS CONJUGATED Inactive CHERATUSSIN AC 100-10 MG/5ML ORAL SYRUP 1 tsp by mouth every 4 hours as needed for cough CHERATUSSIN AC 100-10 MG/5ML ORAL SYRUP 9 49775 GUAIFENESIN-CODEINE Inactive PROMETHAZINE-CODEINE 6.25-10 MG/5ML ORAL SYRUP 1 tsp b y mouth every 6 hours if needed for cough PROMETHAZINE-CODEINE 6.25-10 MG/5ML ORAL SYRUP 166755 PROMETHAZINE-CODEINE Inactive CHERATUSSIN AC 100-10 MG/5ML ORAL SYRUP 1 tsp by mouth every 4 hours as needed for cough CHERATUSSIN AC 100-10 MG/5ML ORAL SYRUP 9 97713 GUAIFENESIN-CODEINE Inactive FLUTICASONE PROPIONATE 50 MCG/ACT NASAL SUSPENSION 1 t o 2 sprays each nostril daily FLUTICASONE PROPIONATE 50 MCG/AC T NASAL SUSPENSION 3770439 FLUTICASONE PROPIONATE Inactive PREDNISONE 20 MG ORAL TABLET 3 tab PO qd x 2d, 2 tab P O qd x 2d, 1 tab PO qd x 2d, 1/2 tab PO qd x 2d PREDNISONE 20 MG ORAL TAB LET 640061 PREDNISONE Inactive LEVOFLOXACIN 500 MG ORAL TABLET 1 tab PO daily x 10 days LEVOFLOXACIN 500 MG ORAL TABLET 953022 LEVOFLOXACIN Inactive CYCLOBENZAPRINE HCL 10 MG ORAL TABLET 1 tablet by mouth BID prn had pain CYCLOBENZAPRINE HCL 10 MG ORAL TABLET 929356 CYCLOBENZAPRINE HCL Inactive ZOCOR 40 MG ORAL TABLET 1 tab by mouth daily 4 ZOCOR 40 MG ORAL TABLET 848177 SIMVASTATIN Inactive TUSSIONEX PENNKINETIC ER 10-8 MG/5ML [...] FLUTICASONE PROPIO EFE 50 MCG/ACT NASAL SUSPENSION 3119379 FLUTICASONE PROPIONATE Inactive TUSSIONEX PENNKINETIC ER 10-8 [...] three days PREDNISONE 20 MG ORAL TABLET 610881 PREDNIS ONE Inactive PROAIR HFA 108 (90 BASE) MCG/ACT INHALATION AEROSOL SO LUTION 2 puffs four times a day as needed PROAIR HFA 108 (90 B ASE) MCG/ACT INHALATION AEROSOL SOLUTION ALBUTEROL SULFATE Inactive ZITHROMAX Z-REYNA 250 MG ORAL TABLET 2 today, then 1 daily for 4 d ays ZITHROMAX Z-REYNA 250 MG ORAL TABLET 023300 AZITHROMYCIN Inactive CEFDINIR 300 MG ORAL CAPSULE by mouth twice a day 2010 CEFDINIR 300 MG ORAL CAPSULE 455870 CEFDINIR Inactive CEFDINIR 300 MG ORAL CAPSULE [...] 2-5 03/07/07 ZITHROMAX 250 MG ORAL TABLET 136358 AZITHROMYCIN [place] ctive CEFDINIR 300 MG ORAL CAPSULE by mouth twice a day 2011 CEFDINIR 300 MG ORAL CAPSULE 20020704 CEFDINIR Inactive PREDNISONE 20 MG ORAL TABLET 2 tabs daily for 3 days, 1 tab daily for 3 days, 1/2 tab daily for 2 days PREDNISONE 20 MG ORAL T ABLET 786177 PREDNISONE Inactive AVELOX 400 MG ORAL TABLET 1 tab by mouth daily AVELOX 400 MG ORAL TABLET 551236 MOXIFLOXACIN HCL Inactive AVELOX 400 MG ORAL TABLET 1 tab by mouth daily AVELOX 400 MG ORAL TABLET 691562 MOXIFLOXACIN HCL Inactive PREDNISONE 20 MG ORAL TABLET Take 3 tabs daily for 3 d ays, 2 tabs daily for 3 days, 1 tab daily for 3 days, 1/2 tab daily for 3 days 11/07 PREDNISONE 20 MG ORAL TABLET 516332 PREDNISONE Inactive LEVAQUIN 500 MG ORAL TABLET take one po QD LEVAQUIN 500 MG ORAL TABLET 514540 LEVOFLOXACIN Inactive AZITHROMYCIN 250 MG ORAL TABLET 2 po qd x 1 day, then 1 po q d x 4 days AZITHROMYCIN 250 MG ORAL TABLET 763527 AZITHROMY GIOVANNI Inactive MEDROL 4 MG ORAL TABLET THERAPY PACK 6 tabs on day 1, 5 tabs on day 2, 4 tabs on day 3, 3 tabs on day 4, 2 tabs on day 5, 1 tab on day 6 2013 MEDROL 4 MG ORAL TABLET THERAPY PACK 110074 METHYLPREDNISOLONE [place] ctive CHERATUSSIN AC 100-10 MG/5ML ORAL SYRUP 5ml po q6hr PRN Cough 20 13/04/14 CHERATUSSIN AC 100-10 MG/5ML ORAL SYRUP 033909 GUAIFENE SIN-CODEINE Inactive TRIAMCINOLONE ACETONIDE 0.1 % EXTERNAL CREAM apply three roger es daily prn rash TRIAMCINOLONE ACETONIDE 0.1 % EXTERNAL CREAM 101 4314 TRIAMCINOLONE ACETONIDE Inactive AZITHROMYCIN 250 MG ORAL TABLET 2 po qd x 1 day, then 1 po q d x 4 days AZITHROMYCIN 250 MG ORAL TABLET 313911 AZITHROMY GIOVANNI Inactive MEDROL 4 MG ORAL TABLET THERAPY PACK 6 pills x 1 day, then 5 pills x 1 day then 4 pills x 1 day, then 3 pills x 1 day, then 2 pills x 1 day, then 1 pill x 1 day, then stop MEDROL 4 MG ORAL TABLET THERAPY PACK 995246 METHYLPREDNISOLONE Inactive AMOXICILLIN 500 MG ORAL CAPSULE 1 tab by mouth 3 times daily x 10 days AMOXICILLIN 500 MG ORAL CAPSULE 890813 AMOXICILL IN Inactive AMOXICILLIN 500 MG ORAL CAPSULE 1 tab by mouth 3 times daily x 10 days AMOXICILLIN 500 MG ORAL CAPSULE 571788 AMOXICILL IN Inactive ZITHROMAX 250 MG ORAL TABLET 2 po today, then 1 po q days 2-5 20 12/08/14 ZITHROMAX 250 MG ORAL TABLET 676993 AZITHROMYCIN [place] ctive AUGMENTIN 875-125 MG ORAL TABLET 1 po BID x 10 days 20 13/01/20 AUGMENTIN 875-125 MG ORAL TABLET 298278 AMOXICILLIN-POT CLAVULANATE Inactive ZITHROMAX Z-REYNA 250 MG ORAL TABLET 2 today, then 1 daily for 4 d ays ZITHROMAX Z-REYNA 250 MG ORAL TABLET 177534 AZITHROMYCIN Inactive ZITHROMAX 250 MG ORAL TABLET 2 po today, then 1 po q days 2-5 20 14/03/21 ZITHROMAX 250 MG ORAL TABLET 206469 AZITHROMYCIN [place] ctive ZITHROMAX Z-REYNA 250 MG ORAL TABLET 2 today, then 1 daily for 4 d ays ZITHROMAX Z-REYNA 250 MG ORAL TABLET 321210 AZITHROMYCIN Inactive CEFDINIR 300 MG ORAL CAPSULE 1 po BID x 10 days 06/21 CEFDINIR 300 MG ORAL CAPSULE 20020704 CEFDINIR Inactive ZITHROMAX 250 MG ORAL TABLET 2 po today, then 1 po q days 2-5 20 13/08/10 ZITHROMAX 250 MG ORAL TABLET 313148 AZITHROMYCIN [place] ctive LEVAQUIN 500 MG ORAL TABLET 1 tablet by mouth daily 13/09/24 LEVAQUIN 500 MG ORAL TABLET 19971102 LEVOFLOXACIN Inactive SINGULAIR 10 MG ORAL TABLET 1 po qday for allergies 20 14/01/12 SINGULAIR 10 MG ORAL TABLET 20010504 MONTELUKAST SODIUM Inactive AMOXICILLIN 500 MG ORAL CAPSULE 2 po BID x 10 days 201 09/29/08 AMOXICILLIN 500 MG ORAL CAPSULE 629702 AMOXICILLIN Inactive PREDNISONE 20 MG ORAL TABLET 2 tabs daily for 3 days, 1 tab daily for 3 days, 1/2 tab daily for 2 days PREDNISONE 20 MG ORAL T ABLET 786985 PREDNISONE Inactive ZITHROMAX Z-REYNA 250 MG ORAL TABLET 2 today, then 1 daily for 4 d ays ZITHROMAX Z-REYNA 250 MG ORAL TABLET 015836 AZITHROMYCIN Inactive PREDNISONE 20 MG ORAL TABLET 2 tabs daily for 3 days, 1 tab daily for 3 days, 1/2 tab daily for 2 days PREDNISONE 20 MG ORAL T ABLET 986894 PREDNISONE Inactive ZITHROMAX 250 MG ORAL TABLET 2 po today, then 1 po q days 2-5 20 14/09/04 ZITHROMAX 250 MG ORAL TABLET 533603 AZITHROMYCIN Greer ctive AMOXICILLIN 500 MG ORAL CAPSULE 1 cap by mouth three times a day AMOXICILLIN 500 MG ORAL CAPSULE 201464 AMOXICILLIN Inactive TERBINAFINE HCL 250 MG ORAL TABLET 1 qDay for nail fungus 7 TERBINAFINE HCL 250 MG ORAL TABLET 593848 TERBINAFINE HCL Inact nael AUGMENTIN 875-125 MG ORAL TABLET 1 po BID x 10 days 16/03/22 AUGMENTIN 875-125 MG ORAL TABLET 066931 AMOXICILLIN-POT CLAVULANATE Inactive PREDNISONE 20 MG ORAL TABLET 2 po qd x 5 days PREDNISONE 20 MG ORAL TABLET 060325 PREDNISONE Inactive Vital Signs Date Name Value [...] - Chem istry sodium, serum 132 mmol/L 513-469 6320/07/12 potassium, serum 2.7 mmol/L 3.5-5.2 chloride, serum 93 mmol/L 98-107 carbon dioxide, venous blood 30.8 mmol/L 21.0-32 .0 blood glucose 107 mg/dL 65-110 calcium, serum 9.3 mg/dL 8.5-10.1 urea nitrogen, blood 12 mg/dL 7-18 creatinine, serum 1.00 mg/dL 0.60-1.30 sodium, serum 142 mmol/L 530-853 2844/07/17 potassium, serum 4.2 mmol/L 3.5-5.2 chloride, serum 106 mmol/L 98-107 carbon dioxide, venous blood 29.9 mmol/L 21.0-32 .0 blood glucose 108 mg/dL 65-110 calcium, serum 9.1 mg/dL 8.5-10.1 urea nitrogen, blood 11 mg/dL 7-18 creatinine, serum 0.81 mg/dL 0.60-1.30 Lab Report: Rapid Strep - Lab Microbial identification kit, rapid strep method Negative Negative Encounters Code Encounter Date Provider Facility CPT-11540 Level 3 Est. Patient 11:34:49 CARBONIZER Perez Mora MD [facility] CPT-54703 Level 4 Est. Patient 09:51:32 CARBONIZER Carlton rich MD [facility] CPT-55938 Level 3 Est. Patient 10:26:00 CARBONIZER Elise stephenson [facility]-69860 Level 3 Est. Patient 13:35:41 CARBONIZER Carlton rich MD [facility] CPT-95413 Level 3 Est. Patient 10:03:52 CARBONIZER Carlton rich MD [facility]-13207 Level 3 Est. Patient 12:17:50 CDT Hugo Restrepo MD [facility] CPT-17727 Level 3 Est. Patient 13:42:38 CDT Elise stephenson [facility] CPT-26334 Level 3 Est. Patient 13:23:51 CDT Diya cobian [facility] CPT-19228 Level 3 Est. Patient 14:22:19 CARBONIZER Diya cobian [facility]-71659 Level 3 Est. Patient 10:11:46 CDT Carlton rich MD [facility] CPT-43721 Level 3 Est. Patient 17:29:43 CDT Elise Are ll SERVICE DELIVERY ANALYST [facility] CPT-19062 Level 3 Est. Patient 11:58:06 CDT Elise Are ll SERVICE DELIVERY ANALYST [facility] CPT-77462 Level 4 Est. Patient 14:36:51 CDT Carlton rich MD [facility] CPT-36455 Level 3 Est. Patient 18:16:00 CARBONIZER Blaine Freeman [facility] CPT-62891 Level 3 Est. Patient 09:45:49 CARBONIZER Carlton rich MD [facility] CPT-35916 Level 3 Est. Patient 13:19:20 CDT Carlton rich MD [facility]-57995 Level 3 Est. Patient 13:06:43 CDT Ridge tam DO [facility] CPT-05393 Level 3 Est. Patient 10:03:07 CDT Perez Mora MD [facility] CPT-87826 Level 3 Est. Patient 19:50:35 CARBONIZER Carlton rich MD [facility] CPT-94458 Level 4 Est. Patient 18:05:01 CARBONIZER Carlton rich MD [facility] CPT-30758 Level 3 Est. Patient 10:45:55 CARBONIZER Hugo Restrepo MD [facility] CPT-14210 Level 3 Est. Patient 14:12:49 CDT Griffin lincoln [facility] CPT-23257 Level 3 Est. Patient 17:37:24 CDT Carlton rich MD [facility] CPT-19842 Level 3 Est. Patient 16:51:54 CDT Carlton rich MD [facility] CPT-07127 Level 3 Est. Patient 12:18:11 CDT Hugo Restrepo MD [facility] CPT-99198 Level 3 Est. Patient 11:30:25 CDT Marcy crisostomo MD PhD [facility] CPT-83381 Level 3 Est. Patient 12:00:47 CARBONIZER Carlton rich MD [facility] CPT-39028 Level 3 Est. Patient 16:31:06 CARBONIZER Carlton rich MD [facility] CPT-85164 Level 3 Est. Patient 16:23:24 CARBONIZER Ridge tam [facility] CPT-07988 Level 3 Est. Patient 12:34:12 CDT Carlton rich MD [facility] CPT-52682 Level 2 Est. Patient 15:43:33 CDT Robi armstrong MD [facility] CPT-63505 Level 4 Est. Patient 14:04:44 CDT Carlton rich MD [facility] CPT-34972 Level 3 Est. Patient 05:47:59 CDT Ridge tam [facility] CPT-90434 Level 3 Est. Patient 13:12:53 CARBONIZER Carlton rich MD [facility] CPT-06906 Level 3 Est. Patient 14:26:53 CDT Hugo [...] CPT-J1100 Decadron 6mg (Dexamethasone) 14:32:13 CDT 2 CPT-19537 Hip bilat min 2V w AP pelvis 13:16:20 CDT 2 CPT-51023 Pelvis only 13:07:33 CDT CPT-60556 Spec Collection and Handling Fee 11:25:12 C DT CPT-39766 Fluzone Quadrivalent Intramuscular Suspe nsion 0.5 ML 14:31:55 CDT CPT-43331 Abx/Therapy Injection 13:28:47 CARBONIZER CPT-J2930 Solu Medrol 125 mg (Methyl Prednisolone Sodium Succinate) 12:00:47 CARBONIZER CPT-83551 Venipuncture Draw Fee 11:33:31 CDT CPT-76778 EKG Trac and Interp 11:21:09 CDT CPT-18170 Chest 2V Frontal and Lat 11:21:09 CDT 12/15 CPT-12534 Venipuncture Draw Fee 08:02:34 CDT CPT-12546 Chest 2V Frontal and Lat 05:47:59 CDT 06/05
--- OUTSIDE RECORDS SUMMARY | 2019-10-08 09:45 | XMS REPORT | Clinical Summary ---
Author Author Caitlin, Juliana Martinez Organization [employer] [facility] Address Unknown Phone Unavailable Allergies, [...] Inactive Hugo Restrepo MD Bronchitis-Acute ICD-466.0 Inactive uHgo dominguez MD URI - acute ICD-465.9 Inactive Hugo Restrepo MD Pharyngitis acute ICD-462 Inactive Hugo gore MD Rhinitis, acute ICD-460 Inactive Hugo Ochoa MD Sinusitis ICD-473.9 Inactive Hugo Restrepo MD Bronchitis ICD-490 Inactive Hguo Restrepo MD 201 10/02/29 SINUSITIS, ACUTE ICD-461.9 Inactive Hugo dominguez MD Medication List Medication Instructions Start Date Stop Date Generic Name NDC Status Provider Patient Instruction PREDNISONE 20 MG ORAL TABLET 2 po qd x 5 days P REDNISONE [id number] Active Perez Mora MD Active PROAIR HFA 108 (90 BASE) MCG/ACT INHALATION AEROSOL SO LUTION 2 puffs four times a day as needed ALBUTEROL SULFATE 81952507546 No Long er Active Becky FUENTES Active ASPIRIN 81 MG ORAL TABLET 1 po qd ASPIRIN 03017951247 Active Carlton Hu MD Active PREDNISONE 20 MG ORAL TABLET 1 tab twice daily for 3 d ay, then one daily for three days PREDNISONE 86142832330 No Longer Active Carlotn Hu MD Active AUGMENTIN 875-125 MG ORAL TABLET 1 po BID x 10 days 16/03/22 AMOXICILLIN-POT CLAVULANATE 64096131577 No Longer Active Elise Garcia APRN Active TERBINAFINE HCL 250 MG ORAL TABLET 1 qDay for nail fungus 7 TERBINAFINE HCL 54439851080 No Longer Active Carlton Hu MD A ctive TUSSIONEX PENNKINETIC ER 10-8 MG/5ML ORAL SUSPENSION E XTENDED RELEASE 5ml po q12hr PRN Cough HYDROCOD POLST-CHLORPHEN POLST 14529513581 Active Perez Mora MD Active AMOXICILLIN 500 MG ORAL CAPSULE 1 cap by mouth three times a day AMOXICILLIN 03948589532 No Longer Active Carlton Hu MD Active ELMIRON 100 MG ORAL CAPSULE 2 tablets in the am and 1 tablet at hs PENTOSAN POLYSULFATE SODIUM 01217485194 No Longer Active Robert Hu MD Active MUCINEX D 60-600 MG ORAL TABLET EXTENDED RELEASE 12 HOUR 1 t ab po q am PSEUDOEPHEDRINE-GUAIFENESIN 71594933007 No Longer Act nael Carlton Hu MD Active MUCINEX DM MAXIMUM STRENGTH 60-1200 MG ORAL TABLET EXT ENDED RELEASE 12 HOUR 1 tab po q am DEXTROMETHORPHAN-GUAIFENESIN 69644130568 No Longer Active Carlton Hu MD Active TUSSIONEX PENNKINETIC ER 10-8 MG/5ML ORAL SUSPENSION E XTENDED RELEASE 5ml po q12hr PRN Cough HYDROCOD POLST-CHLORPHEN POLST 5 2163176744 No Longer Active Carlton Hu MD Active POTASSIUM CHLORIDE ER 20 MEQ ORAL TABLET EXTENDED RELE ASE Take 1 by mouth 4 times daily for 7 days POTASSIUM CHLORIDE 95773806146 No Longer Active Carlton Hu MD Active ZITHROMAX 250 MG ORAL TABLET 2 po today, then 1 po q days 2-5 20 14/09/04 AZITHROMYCIN 88114043121 No Longer Active Elise Garcia APRN Active TUSSIONEX PENNKINETIC ER 10-8 MG/5ML ORAL SUSPENSION E XTENDED RELEASE 5 ml twice a day as needed for cough HYDROCOD POLST-CHLORPH EN POLST 82125385302 No Longer Active Elise Garcia APRN Active MONTELUKAST SODIUM 10 MG ORAL TABLET 1 po daily for Allergy MONTELUKAST SODIUM 39102454669 Active Carlton Hu MD Ac tive TUSSIONEX PENNKINETIC ER 10-8 MG/5ML ORAL SUSPENSION E XTENDED RELEASE 5ml po q12hr PRN Cough HYDROCOD POLST-CHLORPHEN POLST 5 4209235763 No Longer Active Hugo Restrepo MD Active GABAPENTIN 100 MG ORAL CAPSULE 1 po BID for fibromyalgia GABAPENTIN 80852075567 Active Carlton Hu MD Active LYRICA 100 MG ORAL CAPSULE Take 1 tab po BID for fibromyalgia 20 11/08/21 PREGABALIN 17579850201 No Longer Active Elise Garcia APRN A ctive PREDNISONE 20 MG ORAL TABLET 2 tabs daily for 3 days, 1 tab daily for 3 days, 1/2 tab daily for 2 days PREDNISONE 29157648691 No Longer Active Diya De Guzman APRN Active TUSSIONEX PENNKINETIC ER 10-8 MG/5ML ORAL SUSPENSION E XTENDED RELEASE 5 mL PO q 12 hrs PRN cough HYDROCOD POLST-CHLORPHEN POLST 102894 61286 No Longer Active Jillina Gege KHAN Active FLUTICASONE PROPIONATE 50 MCG/ACT NASAL SUSPENSION 2 s prays each nostril daily until bottle is empty FLUTICASONE PROPIONATE 033146125 99 No Longer Active Diya De Guzman APRN Active ASMANEX 60 METERED DOSES 220 MCG/INH INHALATION AEROSO L POWDER BREATH ACTIVATED 1 puff bid with rinse after MOMETASONE FUROATE 1900108 4102 No Longer Active Diya De Guzman [employer]PA[employer]ER Active ZITHROMAX Z-REYNA 250 MG ORAL TABLET 2 today, then 1 daily for 4 d ays AZITHROMYCIN 94004164899 No Longer Active Elise Garcia APRN Active TUSSIONEX PENNKINETIC ER 10-8 MG/5ML ORAL SUSPENSION E XTENDED RELEASE 5ml po q12hr PRN Cough HYDROCOD POLST-CHLORPHEN POLST 5 1757565012 No Longer Active Elise Garcia APRN Active PREDNISONE 20 MG ORAL TABLET 2 tabs daily for 3 days, 1 tab daily for 3 days, 1/2 tab daily for 2 days PREDNISONE 79835311329 No Longer Active Diya De Guzman APRN Active AMOXICILLIN 500 MG ORAL CAPSULE 2 po BID x 10 days 201 09/29/08 AMOXICILLIN 46680018312 No Longer Active Diya De Guzman APRN Act nael SINGULAIR 10 MG ORAL TABLET 1 po qday for allergies 20 14/01/12 MONTELUKAST SODIUM 09355995946 No Longer Active Carlton Hu MD Active LEVAQUIN 500 MG ORAL TABLET 1 tablet by mouth daily 20 13/09/24 LEVOFLOXACIN 35440403216 No Longer Active Carlton Hu MD Acti ve FLUTICASONE PROPIONATE 50 MCG/ACT NASAL SUSPENSION 2 s prays each nostril daily for 2 weeks, then 1 spray each nostril daily. FLUTICASONE PROPIONATE 98727743069 Active Elise Garcia APRN Active ZITHROMAX 250 MG ORAL TABLET 2 po today, then 1 po q days 2-5 20 13/08/10 AZITHROMYCIN 93423067082 No Longer Active Elise Garcia APRN Active XANAX 0.5 MG ORAL TABLET one tablet by mouth daily prn anxiety 2015 ALPRAZOLAM 12892443314 Active Carlton Hu MD Active CYMBALTA 30 MG ORAL CAPSULE DELAYED RELEASE PARTICLES 1 cap by mouth daily for depression DULOXETINE HCL 03505101041 Active Carlton beltrán MD Active CEFDINIR 300 MG ORAL CAPSULE 1 po BID x 10 days CEFDINIR 33321352826 No Longer Active Carlton Hu MD Active ZOCOR 40 MG ORAL TABLET 1 tab by mouth daily SI MVASTATIN 69573793996 No Longer Active Carlton Hu MD Active CYCLOBENZAPRINE HCL 10 MG ORAL TABLET 1 tablet by mouth BID prn had pain CYCLOBENZAPRINE HCL 37856145625 No Longer Active Jayden Hu MD Active LEVOFLOXACIN 500 MG ORAL TABLET 1 tab PO daily x 10 days LEVOFLOXACIN 00058010651 No Longer Active Carlton Hu MD Acti ve PREDNISONE 20 MG ORAL TABLET 3 tab PO qd x 2d, 2 tab P O qd x 2d, 1 tab PO qd x 2d, 1/2 tab PO qd x 2d PREDNISONE 03194228063 No Lo nger Active Carlton Hu MD Active FLUTICASONE PROPIONATE 50 MCG/ACT NASAL SUSPENSION 1 t o 2 sprays each nostril daily FLUTICASONE PROPIONATE 25791722412 No Longer Ac tive Blaine HERNANDEZ Active CHERATUSSIN AC 100-10 MG/5ML ORAL SYRUP 1 tsp by mouth every 4 hours as needed for cough GUAIFENESIN-CODEINE 20696475137 No Longe r Active Blaine HERNANDEZ Active PROMETHAZINE-CODEINE 6.25-10 MG/5ML ORAL SYRUP 1 tsp b y mouth every 6 hours if needed for cough PROMETHAZINE-CODEINE 61838053591 No Longer Active Blaine HERNANDEZ Active CHERATUSSIN AC 100-10 MG/5ML ORAL SYRUP 1 tsp by mouth every 4 hours as needed for cough GUAIFENESIN-CODEINE 67799530523 No Longe r Active Blaine HERNANDEZ Active ZITHROMAX Z-REYNA 250 MG ORAL TABLET 2 today, then 1 daily for 4 d ays AZITHROMYCIN 24278308027 No Longer Active Columba Raida Act nael ZITHROMAX 250 MG ORAL TABLET 2 po today, then 1 po q days 2-5 20 14/03/21 AZITHROMYCIN 92486905983 No Longer Active Carlton Hu MD Active ZITHROMAX Z-REYNA 250 MG ORAL TABLET 2 today, then 1 daily for 4 d ays AZITHROMYCIN 50901893403 No Longer Active Columba Raida Act nael AUGMENTIN 875-125 MG ORAL TABLET 1 po BID x 10 days 13/01/20 AMOXICILLIN-POT CLAVULANATE 55411574447 No Longer Active Diya De Guzman APRN Active ZITHROMAX 250 MG ORAL TABLET 2 po today, then 1 po q days 2-5 20 12/08/14 AZITHROMYCIN 00183787552 No Longer Active Carlton Hu MD Active TRAMADOL HCL 50 MG ORAL TABLET 1 po tid with ES Tylenol TRAMADOL HCL 03343394834 Active Carlton Hu MD Active PREMARIN 0.625 MG ORAL TABLET TAKE 1 TAB BY MOUTH DAILY ESTROGENS CONJUGATED 71548419694 No Longer Active Ridge Bess DO A ctive CYMBALTA 30 MG ORAL CAPSULE DELAYED RELEASE PARTICLES 1 cap by mouth daily DULOXETINE HCL 26070226839 No Longer Active Ridge tam DO Active AMOXICILLIN 500 MG ORAL CAPSULE 1 tab by mouth 3 times daily x 10 days AMOXICILLIN 30718481283 No Longer Active Carlton bustamante MD Active AMOXICILLIN 500 MG ORAL CAPSULE 1 tab by mouth 3 times daily x 10 days AMOXICILLIN 35644783178 No Longer Active Carlton bustamante MD Active PROMETHAZINE-CODEINE 6.25-10 MG/5ML ORAL SYRUP 1 tsp b y mouth every 8 hours prn cough PROMETHAZINE-CODEINE 95729951568 No Longer Acti ve Carlton Hu MD Active MEDROL 4 MG ORAL TABLET THERAPY PACK 6 pills x 1 day, then 5 pills x 1 day then 4 pills x 1 day, then 3 pills x 1 day, then 2 pills x 1 day, then 1 pill x 1 day, then stop METHYLPREDNISOLONE 09829012090 No Long er Active Perez Mora MD Active AZITHROMYCIN 250 MG ORAL TABLET 2 po qd x 1 day, then 1 po q d x 4 days AZITHROMYCIN 66027681130 No Longer Active Perez Ambriz MD Active SYMBICORT 160-4.5 MCG/ACT INHALATION AEROSOL 2 puffs bid wit h rinse after BUDESONIDE-FORMOTEROL FUMARATE 95662362993 N o Longer Active Perez Mora MD Active LYRICA 75 MG ORAL CAPSULE TAKE 1 CAPSULE BY MOUTH TWICE DAILY PREGABALIN 33344859991 No Longer Active Carlton Hu MD Acti ve TOPAMAX 25 MG ORAL TABLET 1 qHS x 1 week, then 1 BID x 1 week, then 1 qAM and 2 qHS x 1 week, then 2 BID (migraine prevention) T OPIRAMATE 57076847659 No Longer Active Jerica FUENTES Active TOPAMAX 50 MG ORAL TABLET take 1 tab po BID for migraines. 07/02 TOPIRAMATE 00462654150 No Longer Active Jerica FUENTES Active TOPAMAX 100 MG ORAL TABLET Take 1 tablet po bid TO PIRAMATE 76150562476 Active Carlton Hu MD Active TRIAMCINOLONE ACETONIDE 0.1 % EXTERNAL CREAM apply three roger es daily prn rash TRIAMCINOLONE ACETONIDE 41353299962 No Longer Active Carlton Hu MD Active PAXIL 40 MG ORAL TABLET take 1 tab po qday for depression 0 PAROXETINE HCL 21342377564 Active Carlton Hu MD Active CHERATUSSIN AC 100-10 MG/5ML ORAL SYRUP 5ml po q6hr PRN Cough 20 13/04/14 GUAIFENESIN-CODEINE 98385984357 No Longer Active Carlton Hu MD Active MEDROL 4 MG ORAL TABLET THERAPY PACK 6 tabs on day 1, 5 tabs on day 2, 4 tabs on day 3, 3 tabs on day 4, 2 tabs on day 5, 1 tab on day 6 2013 METHYLPREDNISOLONE 69640311561 No Longer Active Perez Mora MD Active AZITHROMYCIN 250 MG ORAL TABLET 2 po qd x 1 day, then 1 po q d x 4 days AZITHROMYCIN 37479885405 No Longer Active Perez Ambriz MD Active PROPRANOLOL HCL 60 MG ORAL TABLET 1 PO Q D PROPRANOLOL HCL 96458465445 No Longer Active Perez Mora MD Activ e CHERATUSSIN AC 100-10 MG/5ML ORAL SYRUP take one tsp po Q 6h ours prn cough GUAIFENESIN-CODEINE 76658887062 No Longer Active Zia Mora MD Active AUGMENTIN 875-125 MG ORAL TABLET 1 tab by mouth twice daily with food AMOXICILLIN-POT CLAVULANATE 46425942529 No Longer Act nael Perez Mora MD Active CHERATUSSIN AC 100-10 MG/5ML ORAL SYRUP 1 tsp by mouth every 4 hours as needed for cough GUAIFENESIN-CODEINE 07451891547 No Longe r Active Hugo Restrepo MD Active ACETAMINOPHEN-CODEINE #3 300-30 MG ORAL TABLET 1 PO Q 4-6 HRS CO N PAIN ACETAMINOPHEN-CODEINE 42156364589 No Longer Active Hugo Restrepo MD Active LEVAQUIN 500 MG ORAL TABLET take one po QD LEVO FLOXACIN 26272447032 No Longer Active Griffin HERNANDEZ Active PREDNISONE 20 MG ORAL TABLET Take 3 tabs daily for 3 d ays, 2 tabs daily for 3 days, 1 tab daily for 3 days, 1/2 tab daily for 3 days 11/07 PREDNISONE 71320146706 No Longer Active Carlton Hu MD Acti ve AVELOX 400 MG ORAL TABLET 1 tab by mouth daily MOXIFLOXACIN HCL 94810443193 No Longer Active Carlton Hu MD Active CHERATUSSIN AC 100-10 MG/5ML ORAL SYRUP 1 tsp by mouth every 4 hours as needed for cough GUAIFENESIN-CODEINE 42130234613 No Longe r Active Hugo Restrepo MD Active AVELOX 400 MG ORAL TABLET 1 tab by mouth daily MOXIFLOXACIN HCL 02555369607 No Longer Active Marcy De La Rosa MD PhD Active TERBINAFINE HCL 250 MG ORAL TABLET 1 qDay T ERBINAFINE HCL 30473931726 No Longer Active Marcy De La Rosa MD PhD Active CHERATUSSIN AC 100-10 MG/5ML ORAL SYRUP 1 tsp by mouth every 4 hours as needed for cough GUAIFENESIN-CODEINE 20861651283 No Longe r Active Marcy De La Rosa MD PhD Active AVELOX 400 MG ORAL TABLET 1 tab by mouth daily MOXIFLOXACIN HCL 46639067901 No Longer Active Marcy De La Rosa MD PhD Active HYDROCODONE-ACETAMINOPHEN 5-325 MG ORAL TABLET 1 po q 6hr PRN co ugh HYDROCODONE-ACETAMINOPHEN 89060678692 No Longer Active Marcy De La Rosa MD PhD Active PREDNISONE 20 MG ORAL TABLET 2 tabs daily for 3 days, 1 tab daily for 3 days, 1/2 tab daily for 2 days PREDNISONE 40310076560 No Longer Active Carlton Hu MD Active CEFDINIR 300 MG ORAL CAPSULE by mouth twice a day 2011 CEFDINIR 34090571199 No Longer Active Carlton Hu MD Acti ve HYDROCHLOROTHIAZIDE 25 MG ORAL TABLET 1 TAB PO DAILY HYDROCHLOROTHIAZIDE 88216315237 Active ALFREDO Holly Ac tive ACETAMINOPHEN-CODEINE #3 300-30 MG ORAL TABLET 1 tablet po q 4-6 hrs prn pain ACETAMINOPHEN-CODEINE 24587039098 No Longer Active Ridge Bess DO Active ZITHROMAX 250 MG ORAL TABLET 2 po today, then 1 po q days 2-5 20 03/07/07 AZITHROMYCIN 65535548505 No Longer Active Carlton Hu MD Active CHERATUSSIN AC 100-10 MG/5ML ORAL SYRUP take 1 tsp po q4-6 h ours prn cough GUAIFENESIN-CODEINE 06238679607 No Longer Active Jayden Hu MD Active ACETAMINOPHEN-CODEINE #3 300-30 MG ORAL TABLET 1 PO Q 4-6 HR PRN PAIN ACETAMINOPHEN-CODEINE 52088531199 No Longer Active Arnol Hu MD Active LORTAB 7.5-500 MG/15ML ORAL ELIXIR 7.5 ml po q 4 hour prn cough HYDROCODONE-ACETAMINOPHEN 98519154061 No Longer Active Carlton Hu MD Active PREDNISONE 20 MG ORAL TABLET 1 po bid 3 days, then 1 po q day 3 days PREDNISONE 40930958081 No Longer Active Carlton Hu MD Active CEFDINIR 300 MG ORAL CAPSULE by mouth twice a day 2011 CEFDINIR 34759927008 No Longer Active Carlton Hu MD Acti ve CEFDINIR 300 MG ORAL CAPSULE by mouth twice a day 2010 CEFDINIR 86708030843 No Longer Active Carlton Hu MD Acti ve CEFDINIR 300 MG ORAL CAPSULE by mouth twice a day 2010 CEFDINIR 20334147409 No Longer Active Carlton Hu MD Acti ve TESSALON PERLES 100 MG ORAL CAPSULE 1 tablet by mouth 3 times daily as needed for cough BENZONATATE 48582186175 No Longer Active Carlton Hu MD Active CEFDINIR 300 MG ORAL CAPSULE by mouth twice a day 2010 CEFDINIR 08383569421 No Longer Active Carlton Hu MD Acti ve ZITHROMAX Z-REYNA 250 MG ORAL TABLET 2 today, then 1 daily for 4 d ays AZITHROMYCIN 62612340568 No Longer Active Hugo Restrepo MD Active TESSALON PERLES 100 MG ORAL CAPSULE 1 tablet by mouth 3 times daily as needed for cough TESSALON PERLES 100 MG ORAL CAPSULE 17967 7 BENZONATATE Inactive PREDNISONE 20 MG ORAL TABLET 1 po bid 3 days, then 1 po q day 3 days PREDNISONE 20 MG ORAL TABLET 349705 PREDNISONE Greer ctive LORTAB 7.5-500 MG/15ML ORAL [...] cough CHERATUSSIN AC 100-10 MG/5ML ORAL SYRUP 290483 GUAIFENESIN-CODEINE Inactive ACETAMINOPHEN-CODEINE #3 300-30 MG ORAL TABLET 1 tablet po q 4-6 hrs prn pain ACETAMINOPHEN-CODEINE #3 300-30 MG ORAL TABLET ACETAMINOPHEN-CODEINE Inactive HYDROCODONE-ACETAMINOPHEN 5-325 MG ORAL TABLET 1 po q 6hr PRN co ugh HYDROCODONE-ACETAMINOPHEN 5-325 MG ORAL TABLET 024664 HYDROCODONE-ACETAMINOPHEN Inactive AVELOX 400 MG ORAL TABLET 1 tab by mouth daily AVELOX 400 MG ORAL TABLET 019741 MOXIFLOXACIN HCL Inactive CHERATUSSIN AC 100-10 MG/5ML ORAL SYRUP 1 tsp by mouth every 4 hours as needed for cough CHERATUSSIN AC 100-10 MG/5ML ORAL SYRUP 9 02000 GUAIFENESIN-CODEINE Inactive TERBINAFINE HCL 250 MG ORAL TABLET 1 qDay 07/08 TERBINAFINE HCL 250 MG ORAL TABLET 431528 TERBINAFINE HCL Inactive CHERATUSSIN AC 100-10 MG/5ML ORAL SYRUP 1 tsp by mouth every 4 hours as needed for cough CHERATUSSIN AC 100-10 MG/5ML ORAL SYRUP 9 59776 GUAIFENESIN-CODEINE Inactive ACETAMINOPHEN-CODEINE #3 300-30 MG ORAL TABLET 1 PO Q 4-6 HRS CO N PAIN ACETAMINOPHEN-CODEINE #3 300-30 MG ORAL TABLET ACETAMINOPHEN-CODEINE Inactive CHERATUSSIN AC 100-10 MG/5ML ORAL SYRUP 1 tsp by mouth every 4 hours as needed for cough CHERATUSSIN AC 100-10 MG/5ML ORAL SYRUP 9 50616 GUAIFENESIN-CODEINE Inactive AUGMENTIN 875-125 MG ORAL TABLET 1 tab by mouth twice daily with food AUGMENTIN 875-125 MG ORAL TABLET 914697 AMOXICIL MADELINE-POT CLAVULANATE Inactive CHERATUSSIN AC 100-10 MG/5ML ORAL SYRUP take one tsp po Q 6h ours prn cough CHERATUSSIN AC 100-10 MG/5ML ORAL SYRUP 140281 GUAIFENESIN-CODEINE Inactive PROPRANOLOL HCL 60 MG ORAL TABLET 1 PO Q D PROPRANOLOL HCL 60 MG ORAL TABLET 022810 PROPRANOLOL HCL Inactive TOPAMAX 50 MG ORAL TABLET take 1 tab po BID for migraines. 07/02 TOPAMAX 50 MG ORAL TABLET 693708 TOPIRAMATE Inacti ve TOPAMAX 25 MG ORAL TABLET 1 qHS x 1 week, then 1 BID x 1 week, then 1 qAM and 2 qHS x 1 week, then 2 BID (migraine prevention) TOPAMAX 25 MG ORAL TABLET 591955 TOPIRAMATE Inactive LYRICA 75 MG ORAL CAPSULE TAKE 1 CAPSULE BY MOUTH TWICE DAILY LYRICA 75 MG ORAL CAPSULE PREGABALIN Inactive SYMBICORT 160-4.5 MCG/ACT INHALATION AEROSOL 2 puffs bid wit h rinse after SYMBICORT 160-4.5 MCG/ACT INHALATION AEROSOL BUDESONIDE- FORMOTEROL FUMARATE Inactive PROMETHAZINE-CODEINE 6.25-10 MG/5ML ORAL SYRUP 1 tsp b y mouth every 8 hours prn cough PROMETHAZINE-CODEINE 6.25-10 MG/ 5ML ORAL SYRUP 909140 PROMETHAZINE-CODEINE Inactive CYMBALTA 30 MG ORAL CAPSULE DELAYED RELEASE PARTICLES 1 cap by mouth daily CYMBALTA 30 MG ORAL CAPSULE DELAYED RELE ASE PARTICLES 021292 DULOXETINE HCL Inactive PREMARIN 0.625 MG ORAL TABLET TAKE 1 TAB BY MOUTH DAILY PREMARIN 0.625 MG ORAL TABLET ESTROGENS CONJUGATED Inactive CHERATUSSIN AC 100-10 MG/5ML ORAL SYRUP 1 tsp by mouth every 4 hours as needed for cough CHERATUSSIN AC 100-10 MG/5ML ORAL SYRUP 9 46687 GUAIFENESIN-CODEINE Inactive PROMETHAZINE-CODEINE 6.25-10 MG/5ML ORAL SYRUP 1 tsp b y mouth every 6 hours if needed for cough PROMETHAZINE-CODEINE 6.25-10 MG/5ML ORAL SYRUP 643894 PROMETHAZINE-CODEINE Inactive CHERATUSSIN AC 100-10 MG/5ML ORAL SYRUP 1 tsp by mouth every 4 hours as needed for cough CHERATUSSIN AC 100-10 MG/5ML ORAL SYRUP 9 62790 GUAIFENESIN-CODEINE Inactive FLUTICASONE PROPIONATE 50 MCG/ACT NASAL SUSPENSION 1 t o 2 sprays each nostril daily FLUTICASONE PROPIONATE 50 MCG/AC T NASAL SUSPENSION 5338755 FLUTICASONE PROPIONATE Inactive PREDNISONE 20 MG ORAL TABLET 3 tab PO qd x 2d, 2 tab P O qd x 2d, 1 tab PO qd x 2d, 1/2 tab PO qd x 2d PREDNISONE 20 MG ORAL TAB LET 960636 PREDNISONE Inactive LEVOFLOXACIN 500 MG ORAL TABLET 1 tab PO daily x 10 days LEVOFLOXACIN 500 MG ORAL TABLET 768121 LEVOFLOXACIN Inactive CYCLOBENZAPRINE HCL 10 MG ORAL TABLET 1 tablet by mouth BID prn had pain CYCLOBENZAPRINE HCL 10 MG ORAL TABLET 823452 CYCLOBENZAPRINE HCL Inactive ZOCOR 40 MG ORAL TABLET 1 tab by mouth daily 4 ZOCOR 40 MG ORAL TABLET 232095 SIMVASTATIN Inactive TUSSIONEX PENNKINETIC ER 10-8 MG/5ML [...] FLUTICASONE PROPIO EFE 50 MCG/ACT NASAL SUSPENSION 5847703 FLUTICASONE PROPIONATE Inactive TUSSIONEX PENNKINETIC ER 10-8 [...] three days PREDNISONE 20 MG ORAL TABLET 145271 PREDNIS ONE Inactive PROAIR HFA 108 (90 BASE) MCG/ACT INHALATION AEROSOL SO LUTION 2 puffs four times a day as needed PROAIR HFA 108 (90 B ASE) MCG/ACT INHALATION AEROSOL SOLUTION ALBUTEROL SULFATE Inactive ZITHROMAX Z-REYNA 250 MG ORAL TABLET 2 today, then 1 daily for 4 d ays ZITHROMAX Z-REYNA 250 MG ORAL TABLET 545675 AZITHROMYCIN Inactive CEFDINIR 300 MG ORAL CAPSULE by mouth twice a day 2010 CEFDINIR 300 MG ORAL CAPSULE 934297 CEFDINIR Inactive CEFDINIR 300 MG ORAL CAPSULE [...] 2-5 03/07/07 ZITHROMAX 250 MG ORAL TABLET 950400 AZITHROMYCIN [place] ctive CEFDINIR 300 MG ORAL CAPSULE by mouth twice a day 2011 CEFDINIR 300 MG ORAL CAPSULE 20020704 CEFDINIR Inactive PREDNISONE 20 MG ORAL TABLET 2 tabs daily for 3 days, 1 tab daily for 3 days, 1/2 tab daily for 2 days PREDNISONE 20 MG ORAL T ABLET 299553 PREDNISONE Inactive AVELOX 400 MG ORAL TABLET 1 tab by mouth daily AVELOX 400 MG ORAL TABLET 611047 MOXIFLOXACIN HCL Inactive AVELOX 400 MG ORAL TABLET 1 tab by mouth daily AVELOX 400 MG ORAL TABLET 880760 MOXIFLOXACIN HCL Inactive PREDNISONE 20 MG ORAL TABLET Take 3 tabs daily for 3 d ays, 2 tabs daily for 3 days, 1 tab daily for 3 days, 1/2 tab daily for 3 days 11/07 PREDNISONE 20 MG ORAL TABLET 892093 PREDNISONE Inactive LEVAQUIN 500 MG ORAL TABLET take one po QD LEVAQUIN 500 MG ORAL TABLET 332536 LEVOFLOXACIN Inactive AZITHROMYCIN 250 MG ORAL TABLET 2 po qd x 1 day, then 1 po q d x 4 days AZITHROMYCIN 250 MG ORAL TABLET 141246 AZITHROMY GIOVANNI Inactive MEDROL 4 MG ORAL TABLET THERAPY PACK 6 tabs on day 1, 5 tabs on day 2, 4 tabs on day 3, 3 tabs on day 4, 2 tabs on day 5, 1 tab on day 6 2013 MEDROL 4 MG ORAL TABLET THERAPY PACK 641728 METHYLPREDNISOLONE [place] ctive CHERATUSSIN AC 100-10 MG/5ML ORAL SYRUP 5ml po q6hr PRN Cough 20 13/04/14 CHERATUSSIN AC 100-10 MG/5ML ORAL SYRUP 118931 GUAIFENE SIN-CODEINE Inactive TRIAMCINOLONE ACETONIDE 0.1 % EXTERNAL CREAM apply three roger es daily prn rash TRIAMCINOLONE ACETONIDE 0.1 % EXTERNAL CREAM 101 4314 TRIAMCINOLONE ACETONIDE Inactive AZITHROMYCIN 250 MG ORAL TABLET 2 po qd x 1 day, then 1 po q d x 4 days AZITHROMYCIN 250 MG ORAL TABLET 591700 AZITHROMY GIOVANNI Inactive MEDROL 4 MG ORAL TABLET THERAPY PACK 6 pills x 1 day, then 5 pills x 1 day then 4 pills x 1 day, then 3 pills x 1 day, then 2 pills x 1 day, then 1 pill x 1 day, then stop MEDROL 4 MG ORAL TABLET THERAPY PACK 915209 METHYLPREDNISOLONE Inactive AMOXICILLIN 500 MG ORAL CAPSULE 1 tab by mouth 3 times daily x 10 days AMOXICILLIN 500 MG ORAL CAPSULE 208003 AMOXICILL IN Inactive AMOXICILLIN 500 MG ORAL CAPSULE 1 tab by mouth 3 times daily x 10 days AMOXICILLIN 500 MG ORAL CAPSULE 674704 AMOXICILL IN Inactive ZITHROMAX 250 MG ORAL TABLET 2 po today, then 1 po q days 2-5 20 12/08/14 ZITHROMAX 250 MG ORAL TABLET 293656 AZITHROMYCIN Greer ctive AUGMENTIN 875-125 MG ORAL TABLET 1 po BID x 10 days 20 13/01/20 AUGMENTIN 875-125 MG ORAL TABLET 097325 AMOXICILLIN-POT CLAVULANATE Inactive ZITHROMAX Z-REYNA 250 MG ORAL TABLET 2 today, then 1 daily for 4 d ays ZITHROMAX Z-REYNA 250 MG ORAL TABLET 607206 AZITHROMYCIN Inactive ZITHROMAX 250 MG ORAL TABLET 2 po today, then 1 po q days 2-5 20 14/03/21 ZITHROMAX 250 MG ORAL TABLET 991538 AZITHROMYCIN Greer ctive ZITHROMAX Z-REYNA 250 MG ORAL TABLET 2 today, then 1 daily for 4 d ays ZITHROMAX Z-REYNA 250 MG ORAL TABLET 672470 AZITHROMYCIN Inactive CEFDINIR 300 MG ORAL CAPSULE 1 po BID x 10 days 06/21 CEFDINIR 300 MG ORAL CAPSULE 20020704 CEFDINIR Inactive ZITHROMAX 250 MG ORAL TABLET 2 po today, then 1 po q days 2-5 20 13/08/10 ZITHROMAX 250 MG ORAL TABLET 063043 AZITHROMYCIN Greer ctive LEVAQUIN 500 MG ORAL TABLET 1 tablet by mouth daily 13/09/24 LEVAQUIN 500 MG ORAL TABLET 19971102 LEVOFLOXACIN Inactive SINGULAIR 10 MG ORAL TABLET 1 po qday for allergies 20 14/01/12 SINGULAIR 10 MG ORAL TABLET 20010504 MONTELUKAST SODIUM Inactive AMOXICILLIN 500 MG ORAL CAPSULE 2 po BID x 10 days 201 09/29/08 AMOXICILLIN 500 MG ORAL CAPSULE 500785 AMOXICILLIN Inactive PREDNISONE 20 MG ORAL TABLET 2 tabs daily for 3 days, 1 tab daily for 3 days, 1/2 tab daily for 2 days PREDNISONE 20 MG ORAL T ABLET 084165 PREDNISONE Inactive ZITHROMAX Z-REYNA 250 MG ORAL TABLET 2 today, then 1 daily for 4 d ays ZITHROMAX Z-REYNA 250 MG ORAL TABLET 533454 AZITHROMYCIN Inactive PREDNISONE 20 MG ORAL TABLET 2 tabs daily for 3 days, 1 tab daily for 3 days, 1/2 tab daily for 2 days PREDNISONE 20 MG ORAL T ABLET 427795 PREDNISONE Inactive ZITHROMAX 250 MG ORAL TABLET 2 po today, then 1 po q days 2-5 20 14/09/04 ZITHROMAX 250 MG ORAL TABLET 847917 AZITHROMYCIN Greer ctive AMOXICILLIN 500 MG ORAL CAPSULE 1 cap by mouth three times a day AMOXICILLIN 500 MG ORAL CAPSULE 475124 AMOXICILLIN Inactive TERBINAFINE HCL 250 MG ORAL TABLET 1 qDay for nail fungus 7 TERBINAFINE HCL 250 MG ORAL TABLET 655971 TERBINAFINE HCL Inact nael AUGMENTIN 875-125 MG ORAL TABLET 1 po BID x 10 days 20 16/03/22 AUGMENTIN 875-125 MG ORAL TABLET 137120 AMOXICILLIN-POT CLAVULANATE Inactive Vital Signs Date Name [...] Metabolic Panel - Chem istry blood glucose 107 mg/dL 65-110 calcium, serum 9.3 mg/dL 8.5-10.1 urea nitrogen, blood 12 mg/dL 7-18 creatinine, serum 1.00 mg/dL 0.60-1.30 sodium, serum 142 mmol/L 436-993 5867/07/17 potassium, serum 4.2 mmol/L 3.5-5.2 chloride, serum 106 mmol/L 98-107 carbon dioxide, venous blood 29.9 mmol/L 21.0-32 .0 blood glucose 108 mg/dL 65-110 calcium, serum 9.1 mg/dL 8.5-10.1 urea nitrogen, blood 11 mg/dL 7-18 creatinine, serum 0.81 mg/dL 0.60-1.30 carbon dioxide, venous blood 30.8 mmol/L 21.0-32 .0 chloride, serum 93 mmol/L 98-107 potassium, serum 2.7 mmol/L 3.5-5.2 sodium, serum 132 mmol/L 136-145 Lab Report: Rapid Strep - Lab Microbial identification kit, rapid strep method Negative Negative Encounters Code Encounter Date Provider Facility CPT-45127 Level 3 Est. Patient 11:34:49 DIRECTOR STRATEGIC PLANNING Perez Mora MD [facility] CPT-32706 Level 4 Est. Patient 09:51:32 DIRECTOR STRATEGIC PLANNING Carlton rich MD [facility] CPT-12976 Level 3 Est. Patient 10:26:00 DIRECTOR STRATEGIC PLANNING Elise stephenson [facility] CPT-65692 Level 3 Est. Patient 13:35:41 DIRECTOR STRATEGIC PLANNING Carlton rich MD [facility] CPT-59639 Level 3 Est. Patient 10:03:52 DIRECTOR STRATEGIC PLANNING Carlton rich MD [facility] CPT-16069 Level 3 Est. Patient 12:17:50 CDT Hugo Restrepo MD [facility] CPT-72955 Level 3 Est. Patient 13:42:38 CDT Elise stephenson [facility] CPT-23900 Level 3 Est. Patient 13:23:51 CDT Diya cobian [facility] CPT-50825 Level 3 Est. Patient 14:22:19 DIRECTOR STRATEGIC PLANNING Diya cobian [facility] CPT-38823 Level 3 Est. Patient 10:11:46 CDT Carlton rich MD [facility] CPT-96770 Level 3 Est. Patient 17:29:43 CDT Elise Are ll [facility] CPT-28875 Level 3 Est. Patient 11:58:06 CDT Elise Are ll [facility] CPT-69493 Level 4 Est. Patient 14:36:51 CDT Carlton rich MD [facility] CPT-12544 Level 3 Est. Patient 18:16:00 DIRECTOR STRATEGIC PLANNING Blaine Freeman [facility] CPT-83289 Level 3 Est. Patient 09:45:49 DIRECTOR STRATEGIC PLANNING Carlton rich MD [facility] CPT-37564 Level 3 Est. Patient 13:19:20 CDT Carlton rich MD [facility] CPT-46249 Level 3 Est. Patient 13:06:43 CDT Ridge tam DO [facility] CPT-39547 Level 3 Est. Patient 10:03:07 CDT Perez Mora MD [facility] CPT-74753 Level 3 Est. Patient 19:50:35 DIRECTOR STRATEGIC PLANNING Carlton rich MD [facility] CPT-62963 Level 4 Est. Patient 18:05:01 DIRECTOR STRATEGIC PLANNING Carlton rich MD [facility] CPT-18976 Level 3 Est. Patient 10:45:55 DIRECTOR STRATEGIC PLANNING Hugo Restrepo MD [facility] CPT-57887 Level 3 Est. Patient 14:12:49 CDT Griffin lincoln [facility] CPT-32356 Level 3 Est. Patient 17:37:24 CDT Carlton rich MD [facility] CPT-24380 Level 3 Est. Patient 16:51:54 CDT Carlton rich MD [facility] CPT-02822 Level 3 Est. Patient 12:18:11 CDT Hugo Restrepo MD [facility]-88265 Level 3 Est. Patient 11:30:25 CDT Marcy crisostomo MD PhD [facility] CPT-97132 Level 3 Est. Patient 12:00:47 DIRECTOR STRATEGIC PLANNING Carlton rich MD [facility]-24882 Level 3 Est. Patient 16:31:06 DIRECTOR STRATEGIC PLANNING Carlton rich MD [facility]-19392 Level 3 Est. Patient 16:23:24 DIRECTOR STRATEGIC PLANNING Ridge tam [facility]-97713 Level 3 Est. Patient 12:34:12 CDT Carlton rich MD [facility] CPT-61780 Level 2 Est. Patient 15:43:33 CDT Robi armstrong MD [facility]-05156 Level 4 Est. Patient 14:04:44 CDT Carlton rich MD [facility]-51957 Level 3 Est. Patient 05:47:59 CDT Ridge tam [facility] CPT-19335 Level 3 Est. Patient 13:12:53 DIRECTOR STRATEGIC PLANNING Carlton rich MD [facility]-43025 Level 3 Est. Patient 14:26:53 CDT Hugo Restrepo MD [facility] Procedures Code Procedure Name Date Entry Date Standard Desc ription CPT-J1040 Depo Medrol 80 mg (Methyl Prednisolone A cetate) 10:42:44 CDT CPT-J1100 Decadron 8mg (Dexamethasone) 10:42:44 CDT 2 CPT-J0696 Rocephin 1gm Inj Solr 14:32:13 CDT CPT-J1020 Depo Medrol 60 mg (Methyl Prednisolone A cetate) 14:32:13 CDT CPT-J1100 Decadron 6mg (Dexamethasone) 14:32:13 CDT 2 CPT-81744 Hip bilat min 2V w AP pelvis 13:16:20 CDT 2 CPT-90448 Pelvis only 13:07:33 CDT CPT-30450 Spec Collection and Handling Fee 11:25:12 C DT CPT-82182 Fluzone Quadrivalent Intramuscular Suspe nsion 0.5 ML 14:31:55 CDT CPT-34189 Abx/Therapy Injection 13:28:47 DIRECTOR STRATEGIC PLANNING CPT-J2930 Solu Medrol 125 mg (Methyl Prednisolone Sodium Succinate) 12:00:47 DIRECTOR STRATEGIC PLANNING CPT-41382 Venipuncture Draw Fee 11:33:31 CDT CPT-12116 EKG Trac and Interp 11:21:09 CDT CPT-46352 Chest 2V Frontal and Lat 11:21:09 CDT 12/15 CPT-47615 Venipuncture Draw Fee 08:02:34 CDT CPT-15797 Chest 2V Frontal and Lat 05:47:59 CDT 06/05
--- OUTSIDE RECORDS SUMMARY | 2019-10-08 09:46 | XMS REPORT | Clinical Summary ---
Author Author Caitlin, Juliana Martinez Organization [facility] Address Unknown Phone Unavailable Allergies, Adverse Reactions, [...] times daily for 7 days POTASSIUM CHLORIDE 29219237994 Active Columba Raida Active TUSSIONEX PENNKINETIC ER 10-8 MG/5ML LQCR 5ml po q12hr PRN Cough 20 14/09/04 HYDROCOD POLST-CHLORPHEN POLST 89544973612 Active Elise Whitmore APRN Active ZITHROMAX 250 MG TAB 2 po today, then 1 po q days 2-5 AZITHROMYCIN 94279487355 No Longer Active Elise Whitmore APRN Acti ve TUSSIONEX PENNKINETIC ER 10-8 MG/5ML LQCR 5 ml twice a day a s needed for cough HYDROCOD POLST-CHLORPHEN POLST 14246350123 N o Longer Active Elise Whitmore APRN Active MONTELUKAST SODIUM 10 MG ORAL TABS 1 po daily for Allergy 6 MONTELUKAST SODIUM 65952865521 Active Carlton Hu MD Ac tive TUSSIONEX PENNKINETIC ER 10-8 MG/5ML LQCR 5ml po q12hr PRN Cough HYDROCOD POLST-CHLORPHEN POLST 69202459419 No Longer Active Hugo Restrepo MD Active GABAPENTIN 100 MG CAPS 1 po BID for fibromyalgia GABAPENTIN 84579883432 Active Elise Whitmore APRN Active LYRICA 100 MG CAPS Take 1 tab po BID for fibromyalgia PREGABALIN 00925647051 No Longer Active Elise Whitmore APRN Acti ve PROAIR HFA 108 (90 BASE) MCG/ACT AERS 2 puffs four times a d ay as needed ALBUTEROL SULFATE 87136362346 Active Elise Whitmore APRN Active MUCINEX DM MAXIMUM STRENGTH 60-1200 MG [id number] 1 tab po q am 2016 DEXTROMETHORPHAN-GUAIFENESIN 43575020169 Active Jillina Frazell [employer]LY[employer] Active PREDNISONE 20 MG TAB 2 tabs daily for 3 days, 1 t ab daily for 3 days, 1/2 tab daily for 2 days PREDNISONE 96386158516 No Longer Active Jillina Frazell [employer]NALYST Active TUSSIONEX PENNKINETIC ER 10-8 MG/5ML ORAL LQCR 5 mL PO q 12 hrs PRN cough HYDROCOD POLST-CHLORPHEN POLST 13698030799 No Longer Active Jillina Frazell [employer]NALYST Active FLUTICASONE PROPIONATE 50 MCG/ACT SUSP 2 sprays each n ostril daily until bottle is empty FLUTICASONE PROPIONATE 51035490233 No Longer Ac tive Jillina Frazell [employer] ANALYST Active ASMANEX 60 METERED DOSES 220 MCG/INH AEPB 1 puff bid with ri nse after MOMETASONE FUROATE 74879337548 No Longer Active Diya meneses [employer] ANALYST Active ZITHROMAX Z-REYNA 250 MG TABS 2 today, then 1 daily for 4 days 201 09/29/14 AZITHROMYCIN 30017686895 No Longer Active Elise Whitmore [employer] ANALYST Active TUSSIONEX PENNKINETIC ER 10-8 MG/5ML LQCR 5ml po q12hr PRN Cough HYDROCOD POLST-CHLORPHEN POLST 14134753391 No Longer Active Elise Whitmore [employer] ANALYST Active MUCINEX D 60-600 MG [id number] 1 tab po q am PSEUDOEPHEDRINE-GUAIFENESIN 37255441103 Active Diya De Guzman [employer] ANALYST Active PREDNISONE 20 MG TAB 2 tabs daily for 3 days, 1 t ab daily for 3 days, 1/2 tab daily for 2 days PREDNISONE 58539017429 No Longer Active Diya De Guzman [employer] ANALYST Active AMOXICILLIN 500 MG CAPS 2 po BID x 10 days AMOX ICILLIN 21495563125 No Longer Active Diya De Guzman [employer] ANALYST Active SINGULAIR 10 MG TABS 1 po qday for allergies 2 MONTELUKAST SODIUM 01660282004 No Longer Active Carlton Hu MD Acti ve LEVAQUIN 500 MG TAB 1 tablet by mouth daily LEV OFLOXACIN 17690743454 No Longer Active Carlton Hu MD Active FLUTICASONE PROPIONATE 50 MCG/ACT SUSP 2 sprays each n ostril daily for 2 weeks, then 1 spray each nostril daily. FLUTICASONE PRO PIONATE 90679270678 Active Elise Whitmore APRN Active ZITHROMAX 250 MG TAB 2 po today, then 1 po q days 2-5 AZITHROMYCIN 11712581140 No Longer Active Elise Whitmore APRN Acti ve XANAX 0.5 MG TABS one tablet by mouth daily prn anxiety ALPRAZOLAM 67678158306 Active Elise Whitmore APRN Active CYMBALTA 30 MG CPEP 1 cap by mouth daily for depression DULOXETINE HCL 63307775754 Active Carlton Hu MD Active CEFDINIR 300 MG CAPS 1 po BID x 10 days CEFDINI R 88552333283 No Longer Active Carlton Hu MD Active ZOCOR 40 MG TAB 1 tab by mouth daily SIMVASTATI N 95968097806 No Longer Active Carlton Hu MD Active CYCLOBENZAPRINE HCL 10 MG TABS 1 tablet by mouth BID prn had cherelle n CYCLOBENZAPRINE HCL 25599020707 No Longer Active Carlton Hu MD Active LEVOFLOXACIN 500 MG ORAL TABS 1 tab PO daily x 10 days LEVOFLOXACIN 87000627427 No Longer Active Carlton Hu MD Acti ve PREDNISONE 20 MG ORAL TABS 3 tab PO qd x 2d, 2 tab PO qd x 2d, 1 tab PO qd x 2d, 1/2 tab PO qd x 2d PREDNISONE 80494382505 No Longer Active Carlton Hu MD Active FLUTICASONE PROPIONATE 50 MCG/ACT SUSP 1 to 2 sprays each no stril daily FLUTICASONE PROPIONATE 06781240725 No Longer Active T jaz HERNANDEZ Active CHERATUSSIN AC 100-10 MG/5ML SYRP 1 tsp by mouth every 4 hours as needed for cough GUAIFENESIN-CODEINE 33105692654 No Longer Activ e Blaine HERNANDEZ Active PROMETHAZINE-CODEINE 6.25-10 MG/5ML SYRP 1 tsp by mout h every 6 hours if needed for cough PROMETHAZINE-CODEINE 65674503716 No Long er Active Blaine HERNANDEZ Active CHERATUSSIN AC 100-10 MG/5ML SYRP 1 tsp by mouth every 4 hours as needed for cough GUAIFENESIN-CODEINE 96561710338 No Longer Activ e Blaine HERNANDEZ Active ZITHROMAX Z-REYNA 250 MG TABS 2 today, then 1 daily for 4 days 201 08/30/03 AZITHROMYCIN 99494777566 No Longer Active Columba Raida Act nael ZITHROMAX 250 MG TAB 2 po today, then 1 po q days 2-5 AZITHROMYCIN 52773839354 No Longer Active Carlton Hu MD Acti ve ZITHROMAX Z-REYNA 250 MG TABS 2 today, then 1 daily for 4 days 201 08/07/20 AZITHROMYCIN 48829143250 No Longer Active Columba Raida Act nael AUGMENTIN 875-125 MG TAB 1 po BID x 10 days AMOXICILLIN- POT CLAVULANATE 73317141831 No Longer Active Jillshakira Sernazell [employer] ANALYST Active ZITHROMAX 250 MG TAB 2 po today, then 1 po q days 2-5 AZITHROMYCIN 60114154655 No Longer Active Carlton Hu MD Acti ve TRAMADOL HCL 50 MG TABS 1 po tid with ES Tylenol TRAMADOL HCL 65748571030 Active Carlton Hu MD Active PREMARIN 0.625 MG TABS TAKE 1 TAB BY MOUTH DAILY 07/25 ESTROGENS CONJUGATED 46625337615 No Longer Active Ridge Bess DO Active CYMBALTA 30 MG CPEP 1 cap by mouth daily DULOXE SNEHA HCL 20954594571 No Longer Active Ridge Bess DO Active AMOXICILLIN 500 MG CAP 1 tab by mouth 3 times daily x 10 days 20 14/04/28 AMOXICILLIN 86978275487 No Longer Active Carlton Hu MD Active AMOXICILLIN 500 MG CAP 1 tab by mouth 3 times daily x 10 days 20 13/03/08 AMOXICILLIN 85249075896 No Longer Active Carlton Hu MD Active PROMETHAZINE-CODEINE 6.25-10 MG/5ML SYRP 1 tsp by mouth ever y 8 hours prn cough PROMETHAZINE-CODEINE 05781412372 No Longer Active Robert Hu MD Active MEDROL (REYNA) 4 MG TABS 6 pills x 1 day, then 5 pill s x 1 day then 4 pills x 1 day, then 3 pills x 1 day, then 2 pills x 1 day, then 1 pill x 1 day, then stop METHYLPREDNISOLONE 72494247967 No Longer Active Parris Mora MD Active AZITHROMYCIN 250 MG TABS 2 po qd x 1 day, then 1 po qd x 4 days AZITHROMYCIN 61797107303 No Longer Active Perez Mora MD Active SYMBICORT 160-4.5 MCG/ACT AERO 2 puffs bid with rinse after 2011 BUDESONIDE-FORMOTEROL FUMARATE 04651243965 No Longer Active Perez Mora MD Active LYRICA 75 MG CAPS TAKE 1 CAPSULE BY MOUTH TWICE DAILY 2013 PREGABALIN 95669475758 No Longer Active Carlton Hu MD Active TOPAMAX 25 MG TABS 1 qHS x 1 week, then 1 BID x 1 week, then 1 qAM and 2 qHS x 1 week, then 2 BID (migraine prevention) TOPIRAMAT E 60425130674 No Longer Active Jerica FUENTES Active TOPAMAX 50 MG TABS take 1 tab po BID for migraines. 12/07/10 TOPIRAMATE 08404003556 No Longer Active Jerica FUENTES Ac tive TOPAMAX 100 MG TABS Take 1 tablet po bid TOPIRAMATE 4999 1353072 Active Carlton Hu MD Active TRIAMCINOLONE ACETONIDE 0.1 % CREA apply three times daily prn r beatrice TRIAMCINOLONE ACETONIDE 75288811445 No Longer Active Carlton Hu MD Active PAXIL 40 MG TAB take 1 tab po qday for depression PAROXETINE HCL 64804023901 Active Carlton Hu MD Active CHERATUSSIN AC 100-10 MG/5ML SYRP 5ml po q6hr PRN Cough GUAIFENESIN-CODEINE 14028019711 No Longer Active Carlton Hu MD Active MEDROL (REYNA) 4 MG TABS 6 tabs on day 1, 5 tabs on d ay 2, 4 tabs on day 3, 3 tabs on day 4, 2 tabs on day 5, 1 tab on day 6 METHYLPREDNISOLONE 68579615510 No Longer Active Perez Mora MD Active AZITHROMYCIN 250 MG TABS 2 po qd x 1 day, then 1 po qd x 4 days AZITHROMYCIN 80232182966 No Longer Active Perez Mora MD Active PROPRANOLOL HCL 60 MG TABS 1 PO Q D PROPRANOL OL HCL 30133603746 No Longer Active Perez Mora MD Active CHERATUSSIN AC 100-10 MG/5ML SYRP take one tsp po Q 6hours prn c ough GUAIFENESIN-CODEINE 49402542114 No Longer Active Perez Means Active AUGMENTIN 875-125 MG TAB 1 tab by mouth twice daily with food 20 12/03/31 AMOXICILLIN-POT CLAVULANATE 42435870607 No Longer Active Chanel Mora MD Active CHERATUSSIN AC 100-10 MG/5ML SYRP 1 tsp by mouth every 4 hours as needed for cough GUAIFENESIN-CODEINE 08464824732 No Longer Activ e Hugo Restrepo MD Active ACETAMINOPHEN-CODEINE #3 300-30 MG TABS 1 PO Q 4-6 HRS PRN PAIN ACETAMINOPHEN-CODEINE 82474889049 No Longer Active Hugo Restrepo MD Active LEVAQUIN 500 MG TABS take one po QD LEVOFLOXACI N 23907018258 No Longer Active Griffin HERNANDEZ Active PREDNISONE 20 MG TAB Take 3 tabs daily for 3 days , 2 tabs daily for 3 days, 1 tab daily for 3 days, 1/2 tab daily for 3 days P REDNISONE 61050225731 No Longer Active Carlton Hu MD Active AVELOX 400 MG TABS 1 tab by mouth daily MOXIFLO XACIN HCL 11502821359 No Longer Active Carlton Hu MD Active CHERATUSSIN AC 100-10 MG/5ML SYRP 1 tsp by mouth every 4 hours as needed for cough GUAIFENESIN-CODEINE 74895435999 No Longer Activ e Hugo Restrepo MD Active AVELOX 400 MG TABS 1 tab by mouth daily MOXIFLO XACIN HCL 67509319097 No Longer Active Marcy De La Rosa MD PhD Active TERBINAFINE HCL 250 MG TABS 1 qDay TERBINAF INE HCL 29898014472 No Longer Active Marcy De La Rosa MD PhD Active CHERATUSSIN AC 100-10 MG/5ML SYRP 1 tsp by mouth every 4 hours as needed for cough GUAIFENESIN-CODEINE 68481837214 No Longer Activ e Marcy De La Rosa MD PhD Active AVELOX 400 MG TABS 1 tab by mouth daily MOXIFLO XACIN HCL 03471689709 No Longer Active Marcy De La Rosa MD PhD Active HYDROCODONE-ACETAMINOPHEN 5-325 MG TABS 1 po q 6hr PRN cough 201 05/09/16 HYDROCODONE-ACETAMINOPHEN 11806496746 No Longer Active Marcy De La Rosa MD PhD Active PREDNISONE 20 MG TAB 2 tabs daily for 3 days, 1 t ab daily for 3 days, 1/2 tab daily for 2 days PREDNISONE 20883670255 No Longer Active Carlton Hu MD Active CEFDINIR 300 MG CAPS by mouth twice a day CEFDI ODILIA 49065407459 No Longer Active Carlton Hu MD Active HYDROCHLOROTHIAZIDE 25 MG TABS 1 TAB PO DAILY H YDROCHLOROTHIAZIDE 73979191721 Active Carlton Hu MD Active ACETAMINOPHEN-CODEINE #3 300-30 MG TABS 1 tablet po q 4-6hrs prn pain ACETAMINOPHEN-CODEINE 80142024679 No Longer Active Ridge Bess DO Active ZITHROMAX 250 MG TAB 2 po today, then 1 po q days 2-5 AZITHROMYCIN 38751836255 No Longer Active Carlton Hu MD Acti ve CHERATUSSIN AC 100-10 MG/5ML SYRP take 1 tsp po q4-6 hours prn c ough GUAIFENESIN-CODEINE 24071010496 No Longer Active Carlton Hu MD Active ACETAMINOPHEN-CODEINE #3 300-30 MG TABS 1 PO Q 4-6 HR PRN PAIN 2 ACETAMINOPHEN-CODEINE 33270322051 No Longer Active Carlton rich MD Active LORTAB 7.5-500 MG/15ML ELIX 7.5 ml po q 4 hour prn cough HYDROCODONE-ACETAMINOPHEN 04381332965 No Longer Active Carlton Hu MD Active PREDNISONE 20 MG TAB 1 po bid 3 days, then 1 po q day 3 days 201 05/03/07 PREDNISONE 12626728168 No Longer Active Carlton Hu MD Active ELMIRON 100 MG CAPS 2 tablets in the am and 1 tablet at hs PENTOSAN POLYSULFATE SODIUM 98040999777 Active Carlton Hu MD Ac tive CEFDINIR 300 MG CAPS by mouth twice a day CEFDI ODILIA 49182309748 No Longer Active Carlton Hu MD Active CEFDINIR 300 MG CAPS by mouth twice a day CEFDI ODILIA 54442796934 No Longer Active Carlton Hu MD Active CEFDINIR 300 MG CAPS by mouth twice a day CEFDI ODILIA 71862682843 No Longer Active Carlton Hu MD Active TESSALON PERLES 100 MG CAP 1 tablet by mouth 3 times daily a s needed for cough BENZONATATE 24254325552 No Longer Active Carlton bustamante MD Active CEFDINIR 300 MG CAPS by mouth twice a day CEFDI ODILIA 15303122449 No Longer Active Carlton Hu MD Active ZITHROMAX Z-REYNA 250 MG TABS 2 today, then 1 daily for 4 days 201 04/09/17 AZITHROMYCIN 90598847810 No Longer Active Hugo Restrepo MD Active TESSALON PERLES 100 MG CAP 1 tablet by mouth 3 times daily a s needed for cough TESSALON PERLES 100 MG CAP 595248 BENZONATATE I nactive PREDNISONE 20 MG TAB 1 po bid 3 days, then 1 po q day 3 days 201 05/03/07 PREDNISONE 20 MG TAB 324558 PREDNISONE Inactive LORTAB 7.5-500 MG/15ML ELIX 7.5 ml po q 4 hour prn cough LORTAB 7.5-500 MG/15ML ELIX HYDROCODONE-ACETAMINOPHEN Inacti ve ACETAMINOPHEN-CODEINE #3 300-30 MG TABS 1 PO Q 4-6 HR PRN PAIN 2 ACETAMINOPHEN-CODEINE #3 300-30 MG TABS ACETAMIN OPHEN-CODEINE Inactive CHERATUSSIN AC 100-10 MG/5ML SYRP take 1 tsp po q4-6 hours prn c ough CHERATUSSIN AC 100-10 MG/5ML SYRP 786472 GUAIFENESIN-CO DEINE Inactive ACETAMINOPHEN-CODEINE #3 300-30 MG TABS 1 tablet po q 4-6hrs prn pain ACETAMINOPHEN-CODEINE #3 300-30 MG TABS ACETAMIN OPHEN-CODEINE Inactive HYDROCODONE-ACETAMINOPHEN 5-325 MG TABS 1 po q 6hr PRN cough 201 05/09/16 HYDROCODONE-ACETAMINOPHEN 5-325 MG TABS 441999 HYDROCODONE-ACETAMINOPHEN Inactive AVELOX 400 MG TABS 1 tab by mouth daily A VELOX 400 MG TABS 461372 MOXIFLOXACIN HCL Inactive CHERATUSSIN AC 100-10 MG/5ML SYRP 1 tsp by mouth every 4 hours as needed for cough CHERATUSSIN AC 100-10 MG/5ML SYRP 015022 GUAIFENESIN-CODEINE Inactive TERBINAFINE HCL 250 MG TABS 1 qDay TERBINAFINE HCL 250 MG TABS 150242 TERBINAFINE HCL Inactive CHERATUSSIN AC 100-10 MG/5ML SYRP 1 tsp by mouth every 4 hours as needed for cough CHERATUSSIN AC 100-10 MG/5ML SYRP 130253 GUAIFENESIN-CODEINE Inactive ACETAMINOPHEN-CODEINE #3 300-30 MG TABS 1 PO Q 4-6 HRS PRN PAIN ACETAMINOPHEN-CODEINE #3 300-30 MG TABS ACETAMINOPHEN-CODEIN E Inactive CHERATUSSIN AC 100-10 MG/5ML SYRP 1 tsp by mouth every 4 hours as needed for cough CHERATUSSIN AC 100-10 MG/5ML SYRP 899811 GUAIFENESIN-CODEINE Inactive AUGMENTIN 875-125 MG TAB 1 tab by mouth twice daily with food 20 12/03/31 AUGMENTIN 875-125 MG TAB 388437 AMOXICILLIN-POT CLAVULA EFE Inactive CHERATUSSIN AC 100-10 MG/5ML SYRP take one tsp po Q 6hours prn c ough CHERATUSSIN AC 100-10 MG/5ML SYRP 194015 GUAIFENESIN-CO DEINE Inactive PROPRANOLOL HCL 60 MG TABS 1 PO Q D P ROPRANOLOL HCL 60 MG TABS 155563 PROPRANOLOL HCL Inactive TOPAMAX 50 MG TABS take 1 tab po BID for migraines. 12/07/10 TOPAMAX 50 MG TABS 313607 TOPIRAMATE Inactive TOPAMAX 25 MG TABS 1 qHS x 1 week, then 1 BID x 1 week, then 1 qAM and 2 qHS x 1 week, then 2 BID (migraine prevention) TOPAMAX 2 5 MG TABS 746280 TOPIRAMATE Inactive LYRICA 75 MG CAPS TAKE 1 CAPSULE BY MOUTH TWICE DAILY LYRICA 75 MG CAPS PREGABALIN Inactive SYMBICORT 160-4.5 MCG/ACT AERO 2 puffs bid with rinse after 2011 SYMBICORT 160-4.5 MCG/ACT AERO BUDESONIDE-FORMOT SÁNCHEZ FUMARATE Inactive PROMETHAZINE-CODEINE 6.25-10 MG/5ML SYRP 1 tsp by mouth ever y 8 hours prn cough PROMETHAZINE-CODEINE 6.25-10 MG/5ML SYRP 327704 PROMETHAZINE-CODEINE Inactive CYMBALTA 30 MG CPEP 1 cap by mouth daily CYMBALTA 30 MG CPEP 280481 DULOXETINE HCL Inactive PREMARIN 0.625 MG TABS TAKE 1 TAB BY MOUTH DAILY 07/25 PREMARIN 0.625 MG TABS ESTROGENS CONJUGATED Inactive CHERATUSSIN AC 100-10 MG/5ML SYRP 1 tsp by mouth every 4 hours as needed for cough CHERATUSSIN AC 100-10 MG/5ML SYRP 504447 GUAIFENESIN-CODEINE Inactive PROMETHAZINE-CODEINE 6.25-10 MG/5ML SYRP 1 tsp by mout h every 6 hours if needed for cough PROMETHAZINE-CODEINE 6.25-10 MG/5ML SYRP 265827 PROMETHAZINE-CODEINE Inactive CHERATUSSIN AC 100-10 MG/5ML SYRP 1 tsp by mouth every 4 hours as needed for cough CHERATUSSIN AC 100-10 MG/5ML SYRP 221445 GUAIFENESIN-CODEINE Inactive FLUTICASONE PROPIONATE 50 MCG/ACT SUSP 1 to 2 sprays each no stril daily FLUTICASONE PROPIONATE 50 MCG/ACT SUSP 1891900 FLUTICASONE PROPIONATE Inactive PREDNISONE 20 MG ORAL TABS 3 tab PO qd x 2d, 2 tab PO qd x 2d, 1 tab PO qd x 2d, 1/2 tab PO qd x 2d PREDNISONE 20 MG ORAL TABS 882178 PREDNISONE Inactive LEVOFLOXACIN 500 MG ORAL TABS 1 tab PO daily x 10 days LEVOFLOXACIN 500 MG ORAL TABS 862550 LEVOFLOXACIN Inactive CYCLOBENZAPRINE HCL 10 MG TABS 1 tablet by mouth BID prn had cherelle n CYCLOBENZAPRINE HCL 10 MG TABS 614559 CYCLOBENZAPRINE H CL Inactive ZOCOR 40 MG TAB 1 tab by mouth daily ZOCOR 40 M G TAB 239357 SIMVASTATIN Inactive TUSSIONEX PENNKINETIC ER 10-8 MG/5ML [...] empty FLUTICASONE PROPIONATE 50 MCG/ACT SUSP 17 39014 FLUTICASONE PROPIONATE Inactive TUSSIONEX PENNKINETIC ER 10-8 [...] 201 04/09/17 ZITHROMAX Z-REYNA 250 MG TABS 4337825 AZITHROMYCIN Inac tive CEFDINIR 300 MG CAPS [...] q days 2-5 ZITHROMAX 250 MG TAB 3269517 AZITHROMYCIN Inactive CEFDINIR 300 MG CAPS by mouth twice a day CEFDINIR 300 MG CAPS 20020704 CEFDINIR Inactive PREDNISONE 20 MG TAB 2 tabs daily for 3 days, 1 t ab daily for 3 days, 1/2 tab daily for 2 days PREDNISONE 20 MG TAB 606418 PREDNISON E Inactive AVELOX 400 MG TABS 1 tab by mouth daily A VELOX 400 MG TABS 321003 MOXIFLOXACIN HCL Inactive AVELOX 400 MG TABS 1 tab by mouth daily A VELOX 400 MG TABS 778834 MOXIFLOXACIN HCL Inactive PREDNISONE 20 MG TAB Take 3 tabs daily for 3 days , 2 tabs daily for 3 days, 1 tab daily for 3 days, 1/2 tab daily for 3 days PREDNISONE 20 MG TAB 598981 PREDNISONE Inactive LEVAQUIN 500 MG TABS take one po QD LEVAQUIN 50 0 MG TABS 352599 LEVOFLOXACIN Inactive AZITHROMYCIN 250 MG TABS 2 po qd x 1 day, then 1 po qd x 4 days AZITHROMYCIN 250 MG TABS 9765760 AZITHROMYCIN Inactiv e MEDROL (REYNA) 4 MG TABS 6 tabs on day 1, 5 tabs on d ay 2, 4 tabs on day 3, 3 tabs on day 4, 2 tabs on day 5, 1 tab on day 6 MEDROL (REYNA) 4 MG TABS 948093 METHYLPREDNISOLONE Inactive CHERATUSSIN AC 100-10 MG/5ML SYRP 5ml po q6hr PRN Cough CHERATUSSIN AC 100-10 MG/5ML SYRP 508250 GUAIFENESIN-CODEINE Inacti ve TRIAMCINOLONE ACETONIDE 0.1 % CREA apply three times daily prn r beatrice TRIAMCINOLONE ACETONIDE 0.1 % CREA 9888185 TRIAMCINOLONE ACETONIDE Inactive AZITHROMYCIN 250 MG TABS 2 po qd x 1 day, then 1 po qd x 4 days AZITHROMYCIN 250 MG TABS 3982232 AZITHROMYCIN Inactiv e MEDROL (REYNA) 4 MG TABS 6 pills x 1 day, then 5 pill s x 1 day then 4 pills x 1 day, then 3 pills x 1 day, then 2 pills x 1 day, then 1 pill x 1 day, then stop MEDROL (REYNA) 4 MG TABS 042689 METHYLPREDNISOLONE Inactive AMOXICILLIN 500 MG CAP 1 tab by mouth 3 times daily x 10 days 20 13/03/08 AMOXICILLIN 500 MG CAP 982975 AMOXICILLIN Inactive AMOXICILLIN 500 MG CAP 1 tab by mouth 3 times daily x 10 days 20 14/04/28 AMOXICILLIN 500 MG CAP 968323 AMOXICILLIN Inactive ZITHROMAX 250 MG TAB 2 po today, then 1 po q days 2-5 ZITHROMAX 250 MG TAB 3683140 AZITHROMYCIN Inactive AUGMENTIN 875-125 MG TAB 1 po BID x 10 days AUGMENTIN 875- 125 MG TAB 222949 AMOXICILLIN-POT CLAVULANATE Inactive ZITHROMAX Z-REYNA 250 MG TABS 2 today, then 1 daily for 4 days 201 08/07/20 ZITHROMAX Z-REYNA 250 MG TABS 1340895 AZITHROMYCIN Inac tive ZITHROMAX 250 MG TAB 2 po today, then 1 po q days 2-5 ZITHROMAX 250 MG TAB 8331359 AZITHROMYCIN Inactive ZITHROMAX Z-REYNA 250 MG TABS 2 today, then 1 daily for 4 days 201 08/30/03 ZITHROMAX Z-REYNA 250 MG TABS 9414870 AZITHROMYCIN Inac tive CEFDINIR 300 MG CAPS 1 po BID x 10 days C EFDINIR 300 MG CAPS 20020704 CEFDINIR Inactive ZITHROMAX 250 MG TAB 2 po today, then 1 po q days 2-5 ZITHROMAX 250 MG TAB 8531946 AZITHROMYCIN Inactive LEVAQUIN 500 MG TAB 1 tablet by mouth daily LEVAQUIN 500 MG TAB 130740 LEVOFLOXACIN Inactive SINGULAIR 10 MG TABS 1 po qday for allergies 2 SINGULAIR 10 MG TABS 077414 MONTELUKAST SODIUM Inactive AMOXICILLIN 500 MG CAPS 2 po BID x 10 days AMOXICILLIN 500 MG CAPS 357356 AMOXICILLIN Inactive PREDNISONE 20 MG TAB 2 tabs daily for 3 days, 1 t ab daily for 3 days, 1/2 tab daily for 2 days PREDNISONE 20 MG TAB 599550 PREDNISON E Inactive ZITHROMAX Z-REYNA 250 MG TABS 2 today, then 1 daily for 4 days 201 09/29/14 ZITHROMAX Z-REYNA 250 MG TABS 7300327 AZITHROMYCIN Inac tive PREDNISONE 20 MG TAB 2 tabs daily for 3 days, 1 t ab daily for 3 days, 1/2 tab daily for 2 days PREDNISONE 20 MG TAB 253318 PREDNISON E Inactive ZITHROMAX 250 MG TAB 2 po today, then 1 po q days 2-5 ZITHROMAX 250 MG TAB 0721985 AZITHROMYCIN Inactive Vital Signs Date Name Value [...] - Chem istry sodium, serum 132 mmol/L 860-963 1161/07/12 potassium, serum 2.7 mmol/L 3.5-5.2 chloride, serum 93 mmol/L 98-107 carbon dioxide, venous blood 30.8 mmol/L 21.0-32 .0 blood glucose 107 mg/dL 65-110 calcium, serum 9.3 mg/dL 8.5-10.1 urea nitrogen, blood 12 mg/dL 7-18 creatinine, serum 1.00 mg/dL 0.60-1.30 sodium, serum 142 mmol/L 487-996 2766/07/17 potassium, serum 4.2 mmol/L 3.5-5.2 chloride, serum 106 mmol/L 98-107 carbon dioxide, venous blood 29.9 mmol/L 21.0-32 .0 blood glucose 108 mg/dL 65-110 calcium, serum 9.1 mg/dL 8.5-10.1 urea nitrogen, blood 11 mg/dL 7-18 creatinine, serum 0.81 mg/dL 0.60-1.30 Lab Report: Rapid Strep - Lab Microbial identification kit, rapid strep method Negative Negative Encounters Code Encounter Date Provider Facility [id number] Level 3 Est. Patient 12:17:50 CDT Hugo Restrepo MD [facility] CPT-89033 Level 3 Est. Patient 13:42:38 CDT tIalo [facility] CPT-40974 Level 3 Est. Patient 13:23:51 CDT Diya cobian [facility] CPT-75738 Level 3 Est. Patient 14:22:19 FIELD ACCOUNT DIRECTOR Diay cobian [facility] CPT-46604 Level 3 Est. Patient 10:11:46 CDT Carlton rich MD [facility] CPT-99649 Level 3 Est. Patient 17:29:43 CDT Italo [facility] CPT-44559 Level 3 Est. Patient 11:58:06 CDT Italo [facility] CPT-96858 Level 4 Est. Patient 14:36:51 CDT Carlton rich MD [facility]-62608 Level 3 Est. Patient 18:16:00 FIELD ACCOUNT DIRECTOR Blaine Freeman [facility]-30091 Level 3 Est. Patient 09:45:49 FIELD ACCOUNT DIRECTOR Carlton rich MD [facility]-23738 Level 3 Est. Patient 13:19:20 CDT Carlton rich MD [facility]-66925 Level 3 Est. Patient 13:06:43 CDT Ridge tam DO [facility]-18180 Level 3 Est. Patient 10:03:07 CDT Perez Mora MD [facility]-27081 Level 3 Est. Patient 19:50:35 FIELD ACCOUNT DIRECTOR Carlton rich MD [facility]-17355 Level 4 Est. Patient 18:05:01 FIELD ACCOUNT DIRECTOR Carlton rich MD [facility]-07356 Level 3 Est. Patient 10:45:55 FIELD ACCOUNT DIRECTOR Huog Restrepo MD [facility]-54882 Level 3 Est. Patient 14:12:49 CDT Griffin lincoln [facility]-34814 Level 3 Est. Patient 17:37:24 CDT Carlton rich MD [facility]-88853 Level 3 Est. Patient 16:51:54 CDT Carlton rich MD [facility]-24899 Level 3 Est. Patient 12:18:11 CDT Hugo Restrepo MD [facility]-47144 Level 3 Est. Patient 11:30:25 CDT Marcy crisostomo MD PhD [facility]-33085 Level 3 Est. Patient 12:00:47 FIELD ACCOUNT DIRECTOR Carlton rich MD [facility] CPT-80641 Level 3 Est. Patient 16:31:06 FIELD ACCOUNT DIRECTOR Carlton rich MD [facility] CPT-04291 Level 3 Est. Patient 16:23:24 FIELD ACCOUNT DIRECTOR Ridge tam [facility] CPT-69237 Level 3 Est. Patient 12:34:12 CDT Carlton rich MD [facility] CPT-93725 Level 2 Est. Patient 15:43:33 CDT Robi armstrong MD [facility] CPT-85891 Level 4 Est. Patient 14:04:44 CDT Carlton rich MD [facility] CPT-35084 Level 3 Est. Patient 05:47:59 CDT Ridge tam [facility] CPT-21933 Level 3 Est. Patient 13:12:53 FIELD ACCOUNT DIRECTOR Carlton rich MD [facility] CPT-38973 Level 3 Est. Patient 14:26:53 CDT Hugo Restrepo MD [facility] [facility] Code Procedure Name Date Entry Date Standard Desc ription CPT-J1040 Depo Medrol 80 mg (Methyl Prednisolone A cetate) 10:42:44 CDT CPT-J1100 Decadron 8mg (Dexamethasone) 10:42:44 CDT 2 CPT-J0696 Rocephin 1gm Inj Solr 14:32:13 CDT CPT-J1020 Depo Medrol 60 mg (Methyl Prednisolone A cetate) 14:32:13 CDT CPT-J1100 Decadron 6mg (Dexamethasone) 14:32:13 CDT 2 CPT-92983 Hip bilat min 2V w AP pelvis 13:16:20 CDT 2 CPT-32908 Pelvis only 13:07:33 CDT CPT-79363 Spec Collection and Handling Fee 11:25:12 C DT CPT-85351 Fluzone Quadrivalent Intramuscular Suspe nsion 0.5 ML 14:31:55 CDT CPT-58100 Abx/Therapy Injection 13:28:47 FIELD ACCOUNT DIRECTOR CPT-J2930 Solu Medrol 125 mg (Methyl Prednisolone Sodium Succinate) 12:00:47 FIELD ACCOUNT DIRECTOR CPT-38407 Venipuncture Draw Fee 11:33:31 CDT CPT-11028 EKG Trac and Interp 11:21:09 CDT CPT-71381 Chest 2V Frontal and Lat 11:21:09 CDT 12/15 CPT-73245 Venipuncture Draw Fee 08:02:34 CDT CPT-94710 Chest 2V Frontal and Lat 05:47:59 CDT 06/05
--- OUTSIDE RECORDS SUMMARY | 2019-10-08 09:46 | XMS REPORT | Clinical Summary ---
[...] Headache Preventive health care V70.0 Active Carlton bustaamnte MD Routine general medical examination at a [...] daily for 4 days 201 08/30/03 AZITHROMYCIN 88751574195 Active Columbabrady Kendallida Active CHERATUSSIN AC 100-10 MG/5ML SYRP 1 tsp by mouth every 4 hours as needed for cough GUAIFENESIN-CODEINE 49399381767 Active Elise gilmore PAPERBOARD MACHINE 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 ZITHROMAX 250 MG TAB 2 po today, then 1 po q days 2-5 AZITHROMYCIN 75494686077 No Longer Active Carlton Hu MD Acti ve ZITHROMAX Z-REYNA 250 MG TABS 2 today, then 1 daily for 4 days 201 08/07/20 AZITHROMYCIN 64919394514 No Longer Active Columba Raida Act nael FLUTICASONE PROPIONATE 50 MCG/ACT SUSP 1 to 2 sprays each no stril daily FLUTICASONE PROPIONATE 52168452483 Active Jillina Frazel l PAPERBOARD MACHINE 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 PROMETHAZINE-CODEINE 6.25-10 MG/5ML SYRP 1 tsp by mout h every 6 hours if needed for cough PROMETHAZINE-CODEINE 12724893532 Active Robert Hu MD Active AUGMENTIN 875-125 MG TAB 1 po BID x 10 days AMOXICILLIN- POT CLAVULANATE 75172269735 No Longer Active Diya Guerrerol PAPERBOARD MACHINE 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 ZITHROMAX 250 MG TAB 2 po today, then 1 po q days 2-5 AZITHROMYCIN 02331077865 No Longer Active Carlton Hu MD Acti ve TRAMADOL HCL 50 MG TABS 1 po tid with ES Tylenol TRAMADOL HCL 99490897783 Active Carlton Hu MD Active PREMARIN 0.625 MG TABS TAKE 1 TAB BY MOUTH DAILY 07/25 ESTROGENS CONJUGATED 94777840780 No Longer Active Ridge Bess DO Active CYMBALTA 30 MG CPEP 1 cap by mouth daily DULOXE SNEHA HCL 09291537330 No Longer Active Ridge Bess DO Active AMOXICILLIN 500 MG CAP 1 tab by mouth 3 times daily x 10 days 20 14/04/28 AMOXICILLIN 85966012447 No Longer Active Carlton Hu MD Active AMOXICILLIN 500 MG CAP 1 tab by mouth 3 times daily x 10 days 20 13/03/08 AMOXICILLIN 30417361202 No Longer Active Carlton Hu MD Active CHERATUSSIN AC 100-10 MG/5ML SYRP 1 tsp by mouth every 4 hours as needed for cough GUAIFENESIN-CODEINE 96348112810 Active Carlton banks MD Active CYCLOBENZAPRINE HCL 10 MG TABS 1 tablet by mouth BID prn had pain 2 CYCLOBENZAPRINE HCL 79968936686 Active Carlton Hu MD A ctive PROMETHAZINE-CODEINE 6.25-10 MG/5ML SYRP 1 tsp by mouth ever y 8 hours prn cough PROMETHAZINE-CODEINE 38626579581 No Longer Active Robert jade Hu MD Active MEDROL (REYNA) 4 MG TABS 6 pills x 1 day, then 5 pill s x 1 day then 4 pills x 1 day, then 3 pills x 1 day, then 2 pills x 1 day, then 1 pill x 1 day, then stop METHYLPREDNISOLONE 90011695160 No Longer Active Parris Mora MD Active AZITHROMYCIN 250 MG TABS 2 po qd x 1 day, then 1 po qd x 4 days AZITHROMYCIN 31422420914 No Longer Active Perez Mora MD Active SYMBICORT 160-4.5 MCG/ACT AERO 2 puffs bid with rinse after 2011 BUDESONIDE-FORMOTEROL FUMARATE 33242116104 No Longer Active Perez Mora MD Active LYRICA 75 MG CAPS TAKE 1 CAPSULE BY MOUTH TWICE DAILY 2013 PREGABALIN 75107155616 No Longer Active Carlton Hu MD Active LYRICA 100 MG CAPS Take 1 tab po BID for fibromyalgia PREGABALIN 00049216042 Active Carlton Hu MD Active TOPAMAX 25 MG TABS 1 qHS x 1 week, then 1 BID x 1 week, then 1 qAM and 2 qHS x 1 week, then 2 BID (migraine prevention) TOPIRAMAT E 82699391221 No Longer Active Jerica FUENTES Active TOPAMAX 50 MG TABS take 1 tab po BID for migraines. 12/07/10 TOPIRAMATE 68095007897 No Longer Active Jerica Osei RMA Ac tive TOPAMAX 100 MG TABS Take 1 tablet po bid TOPIRAMATE 4999 8680475 Active Carlton Hu MD Active TRIAMCINOLONE ACETONIDE 0.1 % CREA apply three times daily prn r beatrice TRIAMCINOLONE ACETONIDE 12784114518 No Longer Active Carlton Hu MD Active PAXIL 40 MG TAB take 1 tab po qday for depression PAROXETINE HCL 47134040246 Active Elise Whitmore PAPERBOARD MACHINE 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 CHERATUSSIN AC 100-10 MG/5ML SYRP 5ml po q6hr PRN Cough GUAIFENESIN-CODEINE 82215795924 No Longer Active Carlton Hu MD Active MEDROL (REYNA) 4 MG TABS 6 tabs on day 1, 5 tabs on d ay 2, 4 tabs on day 3, 3 tabs on day 4, 2 tabs on day 5, 1 tab on day 6 METHYLPREDNISOLONE 63282777617 No Longer Active Perez Mora MD Active AZITHROMYCIN 250 MG TABS 2 po qd x 1 day, then 1 po qd x 4 days AZITHROMYCIN 50970313759 No Longer Active Perez Mora MD Active PROPRANOLOL HCL 60 MG TABS 1 PO Q D PROPRANOL OL HCL 95015116757 No Longer Active Perez Mora MD Active CHERATUSSIN AC 100-10 MG/5ML SYRP take one tsp po Q 6hours prn c ough GUAIFENESIN-CODEINE 76092930840 No Longer Active Perez Means Active AUGMENTIN 875-125 MG TAB 1 tab by mouth twice daily with food 20 12/03/31 AMOXICILLIN-POT CLAVULANATE 48679833871 No Longer Active Chanel Mora MD Active CHERATUSSIN AC 100-10 MG/5ML SYRP 1 tsp by mouth every 4 hours as needed for cough GUAIFENESIN-CODEINE 35660574210 No Longer Activ e Hugo Restrepo MD Active ACETAMINOPHEN-CODEINE #3 300-30 MG TABS 1 PO Q 4-6 HRS PRN PAIN ACETAMINOPHEN-CODEINE 82477642673 No Longer Active Hugo Restrepo MD Active LEVAQUIN 500 MG TABS take one po QD LEVOFLOXACI N 35623703676 No Longer Active Griffin HERNANDEZ Active PREDNISONE 20 MG TAB Take 3 tabs daily for 3 days , 2 tabs daily for 3 days, 1 tab daily for 3 days, 1/2 tab daily for 3 days P REDNISONE 61973675921 No Longer Active Carlton Hu MD Active AVELOX 400 MG TABS 1 tab by mouth daily MOXIFLO XACIN HCL 09120729808 No Longer Active Carlton Hu MD Active CHERATUSSIN AC 100-10 MG/5ML SYRP 1 tsp by mouth every 4 hours as needed for cough GUAIFENESIN-CODEINE 30214015034 No Longer Activ e Hugo Restrepo MD Active AVELOX 400 MG TABS 1 tab by mouth daily MOXIFLO XACIN HCL 91265474460 No Longer Active Marcy De La Rosa MD PhD Active TERBINAFINE HCL 250 MG TABS 1 qDay TERBINAF INE HCL 22775227495 No Longer Active Marcy De La Rosa MD PhD Active CHERATUSSIN AC 100-10 MG/5ML SYRP 1 tsp by mouth every 4 hours as needed for cough GUAIFENESIN-CODEINE 57807702640 No Longer Activ e Marcy De La Rosa MD PhD Active AVELOX 400 MG TABS 1 tab by mouth daily MOXIFLO XACIN HCL 31974291928 No Longer Active Marcy De La Rosa MD PhD Active HYDROCODONE-ACETAMINOPHEN 5-325 MG TABS 1 po q 6hr PRN cough 201 05/09/16 HYDROCODONE-ACETAMINOPHEN 23826308898 No Longer Active Marcy De La Rosa MD PhD Active PREDNISONE 20 MG TAB 2 tabs daily for 3 days, 1 t ab daily for 3 days, 1/2 tab daily for 2 days PREDNISONE 63134319435 No Longer Active Carlton Hu MD Active CEFDINIR 300 MG CAPS by mouth twice a day CEFDI ODILIA 70445119997 No Longer Active Carlton Hu MD Active ZOCOR 40 MG TAB 1 tab by mouth daily SIMVASTATIN 08366910486 Active Carlton Hu MD Active HYDROCHLOROTHIAZIDE 25 MG TABS 1 TAB PO DAILY H YDROCHLOROTHIAZIDE 83797933181 Active Carlton Hu MD Active ACETAMINOPHEN-CODEINE #3 300-30 MG TABS 1 tablet po q 4-6hrs prn pain ACETAMINOPHEN-CODEINE 83206519195 No Longer Active Ridge Bess DO Active ZITHROMAX 250 MG TAB 2 po today, then 1 po q days 2-5 AZITHROMYCIN 25641940846 No Longer Active Carlton uH MD Acti ve CHERATUSSIN AC 100-10 MG/5ML SYRP take 1 tsp po q4-6 hours prn c ough GUAIFENESIN-CODEINE 89835677316 No Longer Active Carlton Hu MD Active ACETAMINOPHEN-CODEINE #3 300-30 MG TABS 1 PO Q 4-6 HR PRN PAIN 2 ACETAMINOPHEN-CODEINE 93634652099 No Longer Active Carlton rich MD Active LORTAB 7.5-500 MG/15ML ELIX 7.5 ml po q 4 hour prn cough HYDROCODONE-ACETAMINOPHEN 40946823496 No Longer Active Carlton Hu MD Active PREDNISONE 20 MG TAB 1 po bid 3 days, then 1 po q day 3 days 201 05/03/07 PREDNISONE 92549621521 No Longer Active Carlton Hu MD Active ELMIRON 100 MG CAPS 2 tablets in the am and 1 tablet at hs PENTOSAN POLYSULFATE SODIUM 59333871238 Active Gracie Moreno Active CEFDINIR 300 MG CAPS by mouth twice a day CEFDI ODILIA 49233480010 No Longer Active Carlton Hu MD Active CEFDINIR 300 MG CAPS by mouth twice a day CEFDI ODILIA 67609571633 No Longer Active Carlton Hu MD Active CEFDINIR 300 MG CAPS by mouth twice a day CEFDI ODILIA 68900410163 No Longer Active Carlton Hu MD Active TESSALON PERLES 100 MG CAP 1 tablet by mouth 3 times daily a s needed for cough BENZONATATE 24290346496 No Longer Active Carlton bustamante MD Active CEFDINIR 300 MG CAPS by mouth twice a day CEFDI ODILIA 89694845895 No Longer Active Carlton Hu MD Active ZITHROMAX Z-REYNA 250 MG TABS 2 today, then 1 daily for 4 days 201 04/09/17 AZITHROMYCIN 88831418638 No Longer Active Hugo Restrepo MD Active TESSALON PERLES 100 MG CAP 1 tablet by mouth 3 times daily a s needed for cough TESSALON PERLES 100 MG CAP 630327 BENZONATATE I nactive PREDNISONE 20 MG TAB 1 po bid 3 days, then 1 po q day 3 days 201 05/03/07 PREDNISONE 20 MG TAB 799235 PREDNISONE Inactive LORTAB 7.5-500 MG/15ML ELIX 7.5 ml po q 4 hour prn cough LORTAB 7.5-500 MG/15ML ELIX HYDROCODONE-ACETAMINOPHEN Inacti ve ACETAMINOPHEN-CODEINE #3 300-30 MG TABS 1 PO Q 4-6 HR PRN PAIN 2 ACETAMINOPHEN-CODEINE #3 300-30 MG TABS 314365 ACETAMIN OPHEN-CODEINE Inactive CHERATUSSIN AC 100-10 MG/5ML SYRP take 1 tsp po q4-6 hours prn c ough CHERATUSSIN AC 100-10 MG/5ML SYRP 287461 GUAIFENESIN-CO DEINE Inactive ACETAMINOPHEN-CODEINE #3 300-30 MG TABS 1 tablet po q 4-6hrs prn pain ACETAMINOPHEN-CODEINE #3 300-30 MG TABS 382786 ACETAMIN OPHEN-CODEINE Inactive HYDROCODONE-ACETAMINOPHEN 5-325 MG TABS 1 po q 6hr PRN cough 201 05/09/16 HYDROCODONE-ACETAMINOPHEN 5-325 MG TABS 377189 HYDROCODONE-ACETAMINOPHEN Inactive AVELOX 400 MG TABS 1 tab by mouth daily A VELOX 400 MG TABS 999171 MOXIFLOXACIN HCL Inactive CHERATUSSIN AC 100-10 MG/5ML SYRP 1 tsp by mouth every 4 hours as needed for cough CHERATUSSIN AC 100-10 MG/5ML SYRP 214493 GUAIFENESIN-CODEINE Inactive TERBINAFINE HCL 250 MG TABS 1 qDay TERBINAFINE HCL 250 MG TABS 748540 TERBINAFINE HCL Inactive CHERATUSSIN AC 100-10 MG/5ML SYRP 1 tsp by mouth every 4 hours as needed for cough CHERATUSSIN AC 100-10 MG/5ML SYRP 274864 GUAIFENESIN-CODEINE Inactive ACETAMINOPHEN-CODEINE #3 300-30 MG TABS 1 PO Q 4-6 HRS PRN PAIN ACETAMINOPHEN-CODEINE #3 300-30 MG TABS 201100 ACETAMINOPHEN-CODEIN E Inactive CHERATUSSIN AC 100-10 MG/5ML SYRP 1 tsp by mouth every 4 hours as needed for cough CHERATUSSIN AC 100-10 MG/5ML SYRP 889196 GUAIFENESIN-CODEINE Inactive AUGMENTIN 875-125 MG TAB 1 tab by mouth twice daily with food 20 12/03/31 AUGMENTIN 875-125 MG TAB 511249 AMOXICILLIN-POT CLAVULA EFE Inactive CHERATUSSIN AC 100-10 MG/5ML SYRP take one tsp po Q 6hours prn c ough CHERATUSSIN AC 100-10 MG/5ML SYRP 191538 GUAIFENESIN-CO DEINE Inactive PROPRANOLOL HCL 60 MG TABS 1 PO Q D P ROPRANOLOL HCL 60 MG TABS 104838 PROPRANOLOL HCL Inactive TOPAMAX 50 MG TABS take 1 tab po BID for migraines. 12/07/10 TOPAMAX 50 MG TABS 652095 TOPIRAMATE Inactive TOPAMAX 25 MG TABS 1 qHS x 1 week, then 1 BID x 1 week, then 1 qAM and 2 qHS x 1 week, then 2 BID (migraine prevention) TOPAMAX 2 5 MG TABS 994772 TOPIRAMATE Inactive LYRICA 75 MG CAPS TAKE 1 CAPSULE BY MOUTH TWICE DAILY LYRICA 75 MG CAPS PREGABALIN Inactive SYMBICORT 160-4.5 MCG/ACT AERO 2 puffs bid with rinse after 2011 SYMBICORT 160-4.5 MCG/ACT AERO BUDESONIDE-FORMOT SÁNCHEZ FUMARATE Inactive PROMETHAZINE-CODEINE 6.25-10 MG/5ML SYRP 1 tsp by mouth ever y 8 hours prn cough PROMETHAZINE-CODEINE 6.25-10 MG/5ML SYRP 668818 PROMETHAZINE-CODEINE Inactive CYMBALTA 30 MG CPEP 1 cap by mouth daily CYMBALTA 30 MG CPEP 585582 DULOXETINE HCL Inactive PREMARIN 0.625 MG TABS TAKE 1 TAB BY MOUTH DAILY 07/25 PREMARIN 0.625 MG TABS ESTROGENS CONJUGATED Inactive ZITHROMAX Z-REYNA 250 MG TABS 2 today, then 1 daily for 4 days 201 04/09/17 ZITHROMAX Z-REYNA 250 MG TABS 4730051 AZITHROMYCIN Inac tive CEFDINIR 300 MG CAPS [...] q days 2-5 ZITHROMAX 250 MG TAB 3288495 AZITHROMYCIN Inactive CEFDINIR 300 MG CAPS by mouth twice a day CEFDINIR 300 MG CAPS 20020704 CEFDINIR Inactive PREDNISONE 20 MG TAB 2 tabs daily for 3 days, 1 t ab daily for 3 days, 1/2 tab daily for 2 days PREDNISONE 20 MG TAB 690118 PREDNISON E Inactive AVELOX 400 MG TABS 1 tab by mouth daily A VELOX 400 MG TABS 544270 MOXIFLOXACIN HCL Inactive AVELOX 400 MG TABS 1 tab by mouth daily A VELOX 400 MG TABS 378290 MOXIFLOXACIN HCL Inactive PREDNISONE 20 MG TAB Take 3 tabs daily for 3 days , 2 tabs daily for 3 days, 1 tab daily for 3 days, 1/2 tab daily for 3 days PREDNISONE 20 MG TAB 240415 PREDNISONE Inactive LEVAQUIN 500 MG TABS take one po QD LEVAQUIN 50 0 MG TABS 938760 LEVOFLOXACIN Inactive AZITHROMYCIN 250 MG TABS 2 po qd x 1 day, then 1 po qd x 4 days AZITHROMYCIN 250 MG TABS 4704787 AZITHROMYCIN Inactiv e MEDROL (REYNA) 4 MG TABS 6 tabs on day 1, 5 tabs on d ay 2, 4 tabs on day 3, 3 tabs on day 4, 2 tabs on day 5, 1 tab on day 6 MEDROL (REYNA) 4 MG TABS METHYLPREDNISOLONE Inactive CHERATUSSIN AC 100-10 MG/5ML SYRP 5ml po q6hr PRN Cough CHERATUSSIN AC 100-10 MG/5ML SYRP 344473 GUAIFENESIN-CODEINE Inacti ve TRIAMCINOLONE ACETONIDE 0.1 % CREA apply three times daily prn r beatrice TRIAMCINOLONE ACETONIDE 0.1 % CREA 9869311 TRIAMCINOLONE ACETONIDE Inactive AZITHROMYCIN 250 MG TABS 2 po qd x 1 day, then 1 po qd x 4 days AZITHROMYCIN 250 MG TABS 1756647 AZITHROMYCIN Inactiv e MEDROL (REYNA) 4 MG [...] days 20 13/03/08 AMOXICILLIN 500 MG CAP 596611 AMOXICILLIN Inactive AMOXICILLIN 500 MG CAP 1 tab by mouth 3 times daily x 10 days 20 14/04/28 AMOXICILLIN 500 MG CAP 063195 AMOXICILLIN Inactive ZITHROMAX 250 MG TAB 2 po today, then 1 po q days 2-5 ZITHROMAX 250 MG TAB 7289974 AZITHROMYCIN Inactive AUGMENTIN 875-125 MG TAB 1 po BID x 10 days AUGMENTIN 875- 125 MG TAB 585127 AMOXICILLIN-POT CLAVULANATE Inactive ZITHROMAX Z-REYNA 250 MG TABS 2 today, then 1 daily for 4 days 201 08/07/20 ZITHROMAX Z-REYNA 250 MG TABS 0379801 AZITHROMYCIN Inac tive ZITHROMAX 250 MG TAB 2 po today, then 1 po q days 2-5 ZITHROMAX 250 MG TAB 7556378 AZITHROMYCIN Inactive Vital Signs Date Name Value [...] Measured Encounters Code Encounter Date Provider Facility CPT-82051 Level 3 Est. Patient 09:45:49 DROP WIRE OPERATOR Carlton rich MD [facility] CPT-34684 Level 3 Est. Patient 13:19:20 CDT Carlton rich MD [facility] CPT-23008 Level 3 Est. Patient 13:06:43 CDT Ridge tam DO [facility] CPT-39743 Level 3 Est. Patient 10:03:07 CDT Perez Mora MD [facility]-05142 Level 3 Est. Patient 19:50:35 DROP WIRE OPERATOR Carlton rich MD [facility]-26251 Level 4 Est. Patient 18:05:01 DROP WIRE OPERATOR Carlton rich MD [facility]-29085 Level 3 Est. Patient 10:45:55 DROP WIRE OPERATOR Hugo Restrepo MD [facility]-67833 Level 3 Est. Patient 14:12:49 CDT Griffin HERNANDEZ [facility]-79835 Level 3 Est. Patient 17:37:24 CDT Carlton rich MD [facility]-41475 Level 3 Est. Patient 16:51:54 CDT Carlton rich MD [facility]-32790 Level 3 Est. Patient 12:18:11 CDT Hugo Restrepo MD [facility]-69971 Level 3 Est. Patient 11:30:25 CDT Marcy crisostomo MD PhD [facility]-25336 Level 3 Est. Patient 12:00:47 DROP WIRE OPERATOR Carlton rich MD [facility]-10381 Level 3 Est. Patient 16:31:06 DROP WIRE OPERATOR Carlton rich MD [facility]-88548 Level 3 Est. Patient 16:23:24 DROP WIRE OPERATOR Ridge tam DO [facility] CPT-28610 Level 3 Est. Patient 12:34:12 CDT Carlton rich MD [facility]-87199 Level 2 Est. Patient 15:43:33 CDT Robi armstrong MD [facility]-66218 Level 4 Est. Patient 14:04:44 CDT Carlton rich MD [facility] CPT-67578 Level 3 Est. Patient 05:47:59 CDT Ridge tam DO [facility] CPT-39333 Level 3 Est. Patient 13:12:53 DROP WIRE OPERATOR Carlton rich MD [facility] CPT-41904 Level 3 Est. Patient 14:26:53 CDT Hugo Restrepo MD [facility] Procedures Code Procedure Name Date Entry Date Standard Desc ription CPT-83187 Hip bilat min 2V w AP pelvis 13:16:20 CDT 2 CPT-08122 Pelvis only 13:07:33 CDT CPT-48527 Spec Collection and Handling Fee 11:25:12 C DT CPT-95705 Fluzone Quadrivalent Intramuscular Suspe nsion 0.5 ML 14:31:55 CDT CPT-11712 Abx/Therapy Injection 13:28:47 DROP WIRE OPERATOR CPT-J2930 Solu Medrol 125 mg (Methyl Prednisolone Sodium Succinate) 12:00:47 DROP WIRE OPERATOR CPT-37375 Venipuncture Draw Fee 11:33:31 CDT CPT-20003 EKG Trac and Interp 11:21:09 CDT CPT-58101 Chest 2V Frontal and Lat 11:21:09 CDT 12/15 CPT-31672 Venipuncture Draw Fee 08:02:34 CDT CPT-14709 Chest 2V Frontal and Lat 05:47:59 CDT 06/05
--- OUTSIDE RECORDS SUMMARY | 2019-10-08 09:46 | XMS REPORT | Clinical Summary ---
[...] then 1 po q days 2-5 AZITHROMYCIN [id number] No Longer Active Carlton Hu MD Acti ve TRAMADOL HCL 50 MG TABS 1 po tid with ES Tylenol TRAMADOL HCL 32406237914 Active Ridge Bess DO Active PREMARIN 0.625 MG TABS TAKE 1 TAB BY MOUTH DAILY 07/25 ESTROGENS CONJUGATED 75880063921 No Longer Active Ridge Bess DO Active CYMBALTA 30 MG CPEP 1 cap by mouth daily DULOXE SNEHA HCL 75500304132 No Longer Active Ridge Bess DO Active AMOXICILLIN 500 MG CAP 1 tab by mouth 3 times daily x 10 days 20 14/04/28 AMOXICILLIN 42359893357 No Longer Active Carlton Hu MD Active AMOXICILLIN 500 MG CAP 1 tab by mouth 3 times daily x 10 days 20 13/03/08 AMOXICILLIN 64183333014 No Longer Active Carlton Hu MD Active CHERATUSSIN AC 100-10 MG/5ML SYRP 1 tsp by mouth every 4 hours as needed for cough GUAIFENESIN-CODEINE 56635793859 Active Carlton banks MD Active CYCLOBENZAPRINE HCL 10 MG TABS 1 tablet by mouth BID prn had pain 2 CYCLOBENZAPRINE HCL 06770183065 Active Carlton Hu MD A ctive PROMETHAZINE-CODEINE 6.25-10 MG/5ML SYRP 1 tsp by mouth ever y 8 hours prn cough PROMETHAZINE-CODEINE 50076653032 No Longer Active Robert Hu MD Active MEDROL (ERYNA) 4 MG TABS 6 pills x 1 day, then 5 pill s x 1 day then 4 pills x 1 day, then 3 pills x 1 day, then 2 pills x 1 day, then 1 pill x 1 day, then stop METHYLPREDNISOLONE 10541753050 No Longer Active Parris Mora MD Active AZITHROMYCIN 250 MG TABS 2 po qd x 1 day, then 1 po qd x 4 days AZITHROMYCIN 50859622631 No Longer Active Perez Mora MD Active SYMBICORT 160-4.5 MCG/ACT AERO 2 puffs bid with rinse after 2011 BUDESONIDE-FORMOTEROL FUMARATE 60069519668 No Longer Active Perez Mora MD Active LYRICA 75 MG CAPS TAKE 1 CAPSULE BY MOUTH TWICE DAILY 2013 PREGABALIN 60706223976 No Longer Active Carlton Hu MD Active LYRICA 100 MG CAPS Take 1 tab po BID for fibromyalgia PREGABALIN 42114685566 Active Carlton Hu MD Active TOPAMAX 25 MG TABS 1 qHS x 1 week, then 1 BID x 1 week, then 1 qAM and 2 qHS x 1 week, then 2 BID (migraine prevention) TOPIRAMAT E 94343533065 No Longer Active Jerica Jonesema RMA Active TOPAMAX 50 MG TABS take 1 tab po BID for migraines. 12/07/10 TOPIRAMATE 86093045370 No Longer Active Jerica Osei RMA Ac tive TOPAMAX 100 MG TABS Take 1 tablet po bid TOPIRAMATE 4999 4553230 Active Carlton Hu MD Active TRIAMCINOLONE ACETONIDE 0.1 % CREA apply three times daily prn r beatrice TRIAMCINOLONE ACETONIDE 21213785275 No Longer Active Carlton Hu MD Active PAXIL 40 MG TAB take 1 tab po qday for depression PAROXETINE HCL 28137996870 Active Carlton Hu MD Active CHERATUSSIN AC 100-10 MG/5ML SYRP 5ml po q6hr PRN Cough GUAIFENESIN-CODEINE 65763510413 No Longer Active Carlton Hu MD Active MEDROL (REYNA) 4 MG TABS 6 tabs on day 1, 5 tabs on d ay 2, 4 tabs on day 3, 3 tabs on day 4, 2 tabs on day 5, 1 tab on day 6 METHYLPREDNISOLONE 92379684314 No Longer Active Perez Mora MD Active AZITHROMYCIN 250 MG TABS 2 po qd x 1 day, then 1 po qd x 4 days AZITHROMYCIN 23451069819 No Longer Active Perez Mora MD Active PROPRANOLOL HCL 60 MG TABS 1 PO Q D PROPRANOL OL HCL 54484140965 No Longer Active Perez Mora MD Active CHERATUSSIN AC 100-10 MG/5ML SYRP take one tsp po Q 6hours prn c ough GUAIFENESIN-CODEINE 76302916021 No Longer Active Perez Means Active AUGMENTIN 875-125 MG TAB 1 tab by mouth twice daily with food 20 12/03/31 AMOXICILLIN-POT CLAVULANATE 71133427053 No Longer Active Chanel Mora MD Active CHERATUSSIN AC 100-10 MG/5ML SYRP 1 tsp by mouth every 4 hours as needed for cough GUAIFENESIN-CODEINE 07895597307 No Longer Activ e Hugo Restrepo MD Active ACETAMINOPHEN-CODEINE #3 300-30 MG TABS 1 PO Q 4-6 HRS PRN PAIN ACETAMINOPHEN-CODEINE 10966371246 No Longer Active Hugo Restrepo MD Active LEVAQUIN 500 MG TABS take one po QD LEVOFLOXACI N 19462722102 No Longer Active Griffin HERNANDEZ Active PREDNISONE 20 MG TAB Take 3 tabs daily for 3 days , 2 tabs daily for 3 days, 1 tab daily for 3 days, 1/2 tab daily for 3 days P REDNISONE 26049954611 No Longer Active Carlton Hu MD Active AVELOX 400 MG TABS 1 tab by mouth daily MOXIFLO XACIN HCL 96607334255 No Longer Active Carlton Hu MD Active CHERATUSSIN AC 100-10 MG/5ML SYRP 1 tsp by mouth every 4 hours as needed for cough GUAIFENESIN-CODEINE 58644603804 No Longer Activ e Hugo Restrepo MD Active AVELOX 400 MG TABS 1 tab by mouth daily MOXIFLO XACIN HCL 19767990281 No Longer Active Marcy De La Rosa MD PhD Active TERBINAFINE HCL 250 MG TABS 1 qDay TERBINAF INE HCL 09275254576 No Longer Active Marcy De La Rosa MD PhD Active CHERATUSSIN AC 100-10 MG/5ML SYRP 1 tsp by mouth every 4 hours as needed for cough GUAIFENESIN-CODEINE 10295595033 No Longer Activ e Marcy De La Rosa MD PhD Active AVELOX 400 MG TABS 1 tab by mouth daily MOXIFLO XACIN HCL 31715308174 No Longer Active Marcy De La Rosa MD PhD Active HYDROCODONE-ACETAMINOPHEN 5-325 MG TABS 1 po q 6hr PRN cough 201 05/09/16 HYDROCODONE-ACETAMINOPHEN 12151764614 No Longer Active Marcy De La Rosa MD PhD Active PREDNISONE 20 MG TAB 2 tabs daily for 3 days, 1 t ab daily for 3 days, 1/2 tab daily for 2 days PREDNISONE 27227633348 No Longer Active Carlton Hu MD Active CEFDINIR 300 MG CAPS by mouth twice a day CEFDI ODILIA 19306788161 No Longer Active Carlton Hu MD Active ZOCOR 40 MG TAB 1 tab by mouth daily SIMVASTATIN 47790810168 Active Carlton Hu MD Active HYDROCHLOROTHIAZIDE 25 MG TABS 1 TAB PO DAILY H YDROCHLOROTHIAZIDE 34632374082 Active Carlton Hu MD Active ACETAMINOPHEN-CODEINE #3 300-30 MG TABS 1 tablet po q 4-6hrs prn pain ACETAMINOPHEN-CODEINE 28170851145 No Longer Active Ridge Bess DO Active ZITHROMAX 250 MG TAB 2 po today, then 1 po q days 2-5 AZITHROMYCIN 12671068601 No Longer Active Carlton Hu MD Acti ve CHERATUSSIN AC 100-10 MG/5ML SYRP take 1 tsp po q4-6 hours prn c ough GUAIFENESIN-CODEINE 66747303860 No Longer Active Carlton Hu MD Active ACETAMINOPHEN-CODEINE #3 300-30 MG TABS 1 PO Q 4-6 HR PRN PAIN 2 ACETAMINOPHEN-CODEINE 96328158136 No Longer Active Carlton rich MD Active LORTAB 7.5-500 MG/15ML ELIX 7.5 ml po q 4 hour prn cough HYDROCODONE-ACETAMINOPHEN 55520945703 No Longer Active Carlton Hu MD Active PREDNISONE 20 MG TAB 1 po bid 3 days, then 1 po q day 3 days 201 05/03/07 PREDNISONE 06710609046 No Longer Active Carlton Hu MD Active ELMIRON 100 MG CAPS 2 tablets in the am and 1 tablet at hs PENTOSAN POLYSULFATE SODIUM 44141477338 Active Graciemaximiliano Hernandezr Active CEFDINIR 300 MG CAPS by mouth twice a day CEFDI ODILIA 16564379369 No Longer Active Carlton Hu MD Active CEFDINIR 300 MG CAPS by mouth twice a day CEFDI ODILIA 71500717467 No Longer Active Carlton Hu MD Active CEFDINIR 300 MG CAPS by mouth twice a day CEFDI ODILIA 40286585731 No Longer Active Carlton Hu MD Active TESSALON PERLES 100 MG CAP 1 tablet by mouth 3 times daily a s needed for cough BENZONATATE 13699859291 No Longer Active Carlton bustamante MD Active CEFDINIR 300 MG CAPS by mouth twice a day CEFDI ODILIA 85056193432 No Longer Active Carlton Hu MD Active ZITHROMAX Z-REYNA 250 MG TABS 2 today, then 1 daily for 4 days 201 04/09/17 AZITHROMYCIN 16242506802 No Longer Active Hugo Restrepo MD Active TESSALON PERLES 100 MG CAP 1 tablet by mouth 3 times daily a s needed for cough TESSALON PERLES 100 MG CAP 519387 BENZONATATE I nactive PREDNISONE 20 MG TAB 1 po bid 3 days, then 1 po q day 3 days 201 05/03/07 PREDNISONE 20 MG TAB 160073 PREDNISONE Inactive LORTAB 7.5-500 MG/15ML ELIX 7.5 ml po q 4 hour prn cough LORTAB 7.5-500 MG/15ML ELIX HYDROCODONE-ACETAMINOPHEN Inacti ve ACETAMINOPHEN-CODEINE #3 300-30 MG TABS 1 PO Q 4-6 HR PRN PAIN 2 ACETAMINOPHEN-CODEINE #3 300-30 MG TABS 148534 ACETAMIN OPHEN-CODEINE Inactive CHERATUSSIN AC 100-10 MG/5ML SYRP take 1 tsp po q4-6 hours prn c ough CHERATUSSIN AC 100-10 MG/5ML SYRP 921313 GUAIFENESIN-CO DEINE Inactive ACETAMINOPHEN-CODEINE #3 300-30 MG TABS 1 tablet po q 4-6hrs prn pain ACETAMINOPHEN-CODEINE #3 300-30 MG TABS 751595 ACETAMIN OPHEN-CODEINE Inactive HYDROCODONE-ACETAMINOPHEN 5-325 MG TABS 1 po q 6hr PRN cough 201 05/09/16 HYDROCODONE-ACETAMINOPHEN 5-325 MG TABS 961002 HYDROCODONE-ACETAMINOPHEN Inactive AVELOX 400 MG TABS 1 tab by mouth daily A VELOX 400 MG TABS 026282 MOXIFLOXACIN HCL Inactive CHERATUSSIN AC 100-10 MG/5ML SYRP 1 tsp by mouth every 4 hours as needed for cough CHERATUSSIN AC 100-10 MG/5ML SYRP 279241 GUAIFENESIN-CODEINE Inactive TERBINAFINE HCL 250 MG TABS 1 qDay TERBINAFINE HCL 250 MG TABS 781740 TERBINAFINE HCL Inactive CHERATUSSIN AC 100-10 MG/5ML SYRP 1 tsp by mouth every 4 hours as needed for cough CHERATUSSIN AC 100-10 MG/5ML SYRP 300505 GUAIFENESIN-CODEINE Inactive ACETAMINOPHEN-CODEINE #3 300-30 MG TABS 1 PO Q 4-6 HRS PRN PAIN ACETAMINOPHEN-CODEINE #3 300-30 MG TABS 373027 ACETAMINOPHEN-CODEIN E Inactive CHERATUSSIN AC 100-10 MG/5ML SYRP 1 tsp by mouth every 4 hours as needed for cough CHERATUSSIN AC 100-10 MG/5ML SYRP 196365 GUAIFENESIN-CODEINE Inactive AUGMENTIN 875-125 MG TAB 1 tab by mouth twice daily with food 20 12/03/31 AUGMENTIN 875-125 MG TAB 860175 AMOXICILLIN-POT CLAVULA EFE Inactive CHERATUSSIN AC 100-10 MG/5ML SYRP take one tsp po Q 6hours prn c ough CHERATUSSIN AC 100-10 MG/5ML SYRP 287518 GUAIFENESIN-CO DEINE Inactive PROPRANOLOL HCL 60 MG TABS 1 PO Q D P ROPRANOLOL HCL 60 MG TABS 622135 PROPRANOLOL HCL Inactive TOPAMAX 50 MG TABS take 1 tab po BID for migraines. 12/07/10 TOPAMAX 50 MG TABS 484820 TOPIRAMATE Inactive TOPAMAX 25 MG TABS 1 qHS x 1 week, then 1 BID x 1 week, then 1 qAM and 2 qHS x 1 week, then 2 BID (migraine prevention) TOPAMAX 2 5 MG TABS 799381 TOPIRAMATE Inactive LYRICA 75 MG CAPS TAKE 1 CAPSULE BY MOUTH TWICE DAILY LYRICA 75 MG CAPS PREGABALIN Inactive SYMBICORT 160-4.5 MCG/ACT AERO 2 puffs bid with rinse after 2011 SYMBICORT 160-4.5 MCG/ACT AERO BUDESONIDE-FORMOT SÁNCHEZ FUMARATE Inactive PROMETHAZINE-CODEINE 6.25-10 MG/5ML SYRP 1 tsp by mouth ever y 8 hours prn cough PROMETHAZINE-CODEINE 6.25-10 MG/5ML SYRP 370892 PROMETHAZINE-CODEINE Inactive CYMBALTA 30 MG CPEP 1 cap by mouth daily CYMBALTA 30 MG CPEP 173957 DULOXETINE HCL Inactive PREMARIN 0.625 MG TABS TAKE 1 TAB BY MOUTH DAILY 07/25 PREMARIN 0.625 MG TABS ESTROGENS CONJUGATED Inactive ZITHROMAX Z-REYNA 250 MG TABS 2 today, then 1 daily for 4 days 201 04/09/17 ZITHROMAX Z-REYNA 250 MG TABS 6121515 AZITHROMYCIN Inac tive CEFDINIR 300 MG CAPS [...] q days 2-5 ZITHROMAX 250 MG TAB 4385015 AZITHROMYCIN Inactive CEFDINIR 300 MG CAPS by mouth twice a day CEFDINIR 300 MG CAPS 20020704 CEFDINIR Inactive PREDNISONE 20 MG TAB 2 tabs daily for 3 days, 1 t ab daily for 3 days, 1/2 tab daily for 2 days PREDNISONE 20 MG TAB 054892 PREDNISON E Inactive AVELOX 400 MG TABS 1 tab by mouth daily A VELOX 400 MG TABS 554374 MOXIFLOXACIN HCL Inactive AVELOX 400 MG TABS 1 tab by mouth daily A VELOX 400 MG TABS 784141 MOXIFLOXACIN HCL Inactive PREDNISONE 20 MG TAB Take 3 tabs daily for 3 days , 2 tabs daily for 3 days, 1 tab daily for 3 days, 1/2 tab daily for 3 days PREDNISONE 20 MG TAB 960086 PREDNISONE Inactive LEVAQUIN 500 MG TABS take one po QD LEVAQUIN 50 0 MG TABS 044582 LEVOFLOXACIN Inactive AZITHROMYCIN 250 MG TABS 2 po qd x 1 day, then 1 po qd x 4 days AZITHROMYCIN 250 MG TABS 1556735 AZITHROMYCIN Inactiv e MEDROL (REYNA) 4 MG TABS 6 tabs on day 1, 5 tabs on d ay 2, 4 tabs on day 3, 3 tabs on day 4, 2 tabs on day 5, 1 tab on day 6 MEDROL (REYNA) 4 MG TABS METHYLPREDNISOLONE Inactive CHERATUSSIN AC 100-10 MG/5ML SYRP 5ml po q6hr PRN Cough CHERATUSSIN AC 100-10 MG/5ML SYRP 948399 GUAIFENESIN-CODEINE Inacti ve TRIAMCINOLONE ACETONIDE 0.1 % CREA apply three times daily prn r beatrice TRIAMCINOLONE ACETONIDE 0.1 % CREA 5711049 TRIAMCINOLONE ACETONIDE Inactive AZITHROMYCIN 250 MG TABS 2 po qd x 1 day, then 1 po qd x 4 days AZITHROMYCIN 250 MG TABS 3352187 AZITHROMYCIN Inactiv e MEDROL (REYNA) 4 MG [...] days 20 13/03/08 AMOXICILLIN 500 MG CAP 719966 AMOXICILLIN Inactive AMOXICILLIN 500 MG CAP 1 tab by mouth 3 times daily x 10 days 20 14/04/28 AMOXICILLIN 500 MG CAP 589362 AMOXICILLIN Inactive ZITHROMAX 250 MG TAB 2 po today, then 1 po q days 2-5 ZITHROMAX 250 MG TAB 2825008 AZITHROMYCIN Inactive Vital Signs Date Name Value [...] [phone] Encounters Code Encounter Date Provider Facility CPT-85355 Level 3 Est. Patient 13:19:20 CDT Carlton rich MD [facility] CPT-04264 Level 3 Est. Patient 13:06:43 CDT Ridge tam DO [facility] CPT-55222 Level 3 Est. Patient 10:03:07 CDT Perez Mora MD [facility]-26395 Level 3 Est. 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 Patient 18:05:01 OIL WELL GUN PERFORATOR OPERATOR Carlton rich MD [facility]-58686 Level 3 Est. Patient 10:45:55 OIL WELL GUN PERFORATOR OPERATOR Hugo Restrepo MD [facility]-26658 Level 3 Est. Patient 14:12:49 CDT Griffin HERNANDEZ [facility] CPT-53859 Level 3 Est. Patient 17:37:24 CDT Carlton rich MD [facility]-40866 Level 3 Est. Patient 16:51:54 CDT Carlton rich MD [facility]-61791 Level 3 Est. Patient 12:18:11 CDT Hugo Restrepo MD [facility]-49471 Level 3 Est. Patient 11:30:25 CDT Marcy crisostomo MD PhD [facility]-07657 Level 3 Est. Patient 12:00:47 OIL WELL GUN PERFORATOR OPERATOR Carlton rich MD [facility]-52324 Level 3 Est. Patient 16:31:06 OIL WELL GUN PERFORATOR OPERATOR Carlton rich MD [facility]-15575 Level 3 Est. Patient 16:23:24 OIL WELL GUN PERFORATOR OPERATOR Ridge tam DO [facility]-87054 Level 3 Est. Patient 12:34:12 CDT Carlton rich MD [facility] CPT-13930 Level 2 Est. Patient 15:43:33 CDT Robi armstrong MD [facility] CPT-05999 Level 4 Est. Patient 14:04:44 CDT Carlton rich MD [facility] CPT-42007 Level 3 Est. Patient 05:47:59 CDT Ridge tam DO [facility] CPT-29129 Level 3 Est. Patient 13:12:53 OIL WELL GUN PERFORATOR OPERATOR Carlton rich MD [facility] CPT-85604 Level 3 Est. Patient 14:26:53 CDT Hugo Restrepo MD [facility] Procedures Code Procedure Name Date Entry Date Standard Desc ription CPT-88391 Hip bilat min 2V w AP pelvis 13:16:20 CDT 2 CPT-90654 Pelvis only 13:07:33 CDT CPT-98935 Spec Collection and Handling Fee 11:25:12 C DT CPT-99536 Fluzone Quadrivalent Intramuscular Suspe nsion 0.5 ML 14:31:55 CDT CPT-68058 Abx/Therapy Injection 13:28:47 OIL WELL GUN PERFORATOR OPERATOR CPT-J2930 Solu Medrol 125 mg (Methyl Prednisolone Sodium Succinate) 12:00:47 OIL WELL GUN PERFORATOR OPERATOR CPT-83275 Venipuncture Draw Fee 11:33:31 CDT CPT-66038 EKG Trac and Interp 11:21:09 CDT CPT-61440 Chest 2V Frontal and Lat 11:21:09 CDT 12/15 CPT-32870 Venipuncture Draw Fee 08:02:34 CDT CPT-65124 Chest 2V Frontal and Lat 05:47:59 CDT 06/05
--- OUTSIDE RECORDS SUMMARY | 2019-10-08 09:47 | XMS REPORT | Clinical Summary ---
Author Author Caitlin, Juliana Martinez Organization [facility] Address Unknown Phone Unavailable Allergies, [...] times daily for 7 days POTASSIUM CHLORIDE [id number] Active Columba Raida Active TUSSIONEX PENNKINETIC ER 10-8 MG/5ML LQCR 5ml po q12hr PRN Cough 20 14/09/04 HYDROCOD POLST-CHLORPHEN POLST 28123904986 Active Elise Whitmore APRN Active ZITHROMAX 250 MG TAB 2 po today, then 1 po q days 2-5 AZITHROMYCIN 67375561146 No Longer Active Elise Whitmore APRN Acti ve TUSSIONEX PENNKINETIC ER 10-8 MG/5ML LQCR 5 ml twice a day a s needed for cough HYDROCOD POLST-CHLORPHEN POLST 96910338382 N o Longer Active Elise Whitmore APRN Active MONTELUKAST SODIUM 10 MG ORAL TABS 1 po daily for Allergy 6 MONTELUKAST SODIUM 02640181508 Active Maria Luisa Sanabria, RMA Act nael TUSSIONEX PENNKINETIC ER 10-8 MG/5ML LQCR 5ml po q12hr PRN Cough HYDROCOD POLST-CHLORPHEN POLST 20345665350 No Longer Active Hugo Restrepo MD Active GABAPENTIN 100 MG CAPS 1 po BID for fibromyalgia GABAPENTIN 42253281130 Active Elise hWitmore APRN Active LYRICA 100 MG CAPS Take 1 tab po BID for fibromyalgia PREGABALIN 22493054229 No Longer Active Elise Whitmore APRN Acti ve PROAIR HFA 108 (90 BASE) MCG/ACT AERS 2 puffs four times a d ay as needed ALBUTEROL SULFATE 53070673590 Active Elise Whitmore APRN Active MUCINEX DM MAXIMUM STRENGTH 60-1200 MG [id number] 1 tab po q am 2016 DEXTROMETHORPHAN-GUAIFENESIN 54711050986 Active Jillina Frabrayan RICEN Active PREDNISONE 20 MG TAB 2 tabs daily for 3 days, 1 t ab daily for 3 days, 1/2 tab daily for 2 days PREDNISONE 64643496852 No Longer Active Jillina Frakerriel WEB SERVICES MANAGER Active TUSSIONEX PENNKINETIC ER 10-8 MG/5ML ORAL LQCR 5 mL PO q 12 hrs PRN cough HYDROCOD POLST-CHLORPHEN POLST 46021682915 No Longer Active Jillina Frazell WEB SERVICES MANAGER Active FLUTICASONE PROPIONATE 50 MCG/ACT SUSP 2 sprays each n ostril daily until bottle is empty FLUTICASONE PROPIONATE 72760082468 No Longer Ac tive Jillina Frazell WEB SERVICES MANAGER Active ASMANEX 60 METERED DOSES 220 MCG/INH AEPB 1 puff bid with ri nse after MOMETASONE FUROATE 92101612895 No Longer Active Diya meneses WEB SERVICES MANAGER Active ZITHROMAX Z-REYNA 250 MG TABS 2 today, then 1 daily for 4 days 201 09/29/14 AZITHROMYCIN 81170021542 No Longer Active Elise Whitmore WEB SERVICES MANAGER Active TUSSIONEX PENNKINETIC ER 10-8 MG/5ML LQCR 5ml po q12hr PRN Cough HYDROCOD POLST-CHLORPHEN POLST 43528941663 No Longer Active Elise Whitmore WEB SERVICES MANAGER Active MUCINEX D 60-600 MG [id number] 1 tab po q am PSEUDOEPHEDRINE-GUAIFENESIN 63685156151 Active Diya De Guzman WEB SERVICES MANAGER Active PREDNISONE 20 MG TAB 2 tabs daily for 3 days, 1 t ab daily for 3 days, 1/2 tab daily for 2 days PREDNISONE 93206690436 No Longer Active Diya De Guzman WEB SERVICES MANAGER Active AMOXICILLIN 500 MG CAPS 2 po BID x 10 days AMOX ICILLIN 73657240509 No Longer Active Diya De Guzman WEB SERVICES MANAGER Active SINGULAIR 10 MG TABS 1 po qday for allergies 2 MONTELUKAST SODIUM 45541555563 No Longer Active Carlton Hu MD Acti ve LEVAQUIN 500 MG TAB 1 tablet by mouth daily LEV OFLOXACIN 11948775088 No Longer Active Carlton Hu MD Active FLUTICASONE PROPIONATE 50 MCG/ACT SUSP 2 sprays each n ostril daily for 2 weeks, then 1 spray each nostril daily. FLUTICASONE PRO PIONATE 15614328092 Active Elise Whitmore APRN Active ZITHROMAX 250 MG TAB 2 po today, then 1 po q days 2-5 AZITHROMYCIN 46863974648 No Longer Active Elise Whitmore APRN Acti ve XANAX 0.5 MG TABS one tablet by mouth daily prn anxiety ALPRAZOLAM 33816652818 Active Elise Whitmore APRN Active CYMBALTA 30 MG CPEP 1 cap by mouth daily for depression DULOXETINE HCL 75384869237 Active Carlton Hu MD Active CEFDINIR 300 MG CAPS 1 po BID x 10 days CEFDINI R 94198893219 No Longer Active Carlton Hu MD Active ZOCOR 40 MG TAB 1 tab by mouth daily SIMVASTATI N 30493581208 No Longer Active Carlton Hu MD Active CYCLOBENZAPRINE HCL 10 MG TABS 1 tablet by mouth BID prn had cherelle n CYCLOBENZAPRINE HCL 01900576780 No Longer Active Carlton Hu MD Active LEVOFLOXACIN 500 MG ORAL TABS 1 tab PO daily x 10 days LEVOFLOXACIN 84393802844 No Longer Active Carlton Hu MD Acti ve PREDNISONE 20 MG ORAL TABS 3 tab PO qd x 2d, 2 tab PO qd x 2d, 1 tab PO qd x 2d, 1/2 tab PO qd x 2d PREDNISONE 90709800728 No Longer Active Carlton Hu MD Active FLUTICASONE PROPIONATE 50 MCG/ACT SUSP 1 to 2 sprays each no stril daily FLUTICASONE PROPIONATE 64786920694 No Longer Active T jaz HERNANDEZ Active CHERATUSSIN AC 100-10 MG/5ML SYRP 1 tsp by mouth every 4 hours as needed for cough GUAIFENESIN-CODEINE 05011618071 No Longer Activ e Blaine HERNANDEZ Active PROMETHAZINE-CODEINE 6.25-10 MG/5ML SYRP 1 tsp by mout h every 6 hours if needed for cough PROMETHAZINE-CODEINE 07625533060 No Long er Active Blaine HERNANDEZ Active CHERATUSSIN AC 100-10 MG/5ML SYRP 1 tsp by mouth every 4 hours as needed for cough GUAIFENESIN-CODEINE 10631850904 No Longer Activ Jorge Luis HERNANDEZ Active ZITHROMAX Z-REYNA 250 MG TABS 2 today, then 1 daily for 4 days 201 08/30/03 AZITHROMYCIN 35899301155 No Longer Active Columba Raida Act nael ZITHROMAX 250 MG TAB 2 po today, then 1 po q days 2-5 AZITHROMYCIN 07182546073 No Longer Active Carlton Hu MD Acti ve ZITHROMAX Z-REYNA 250 MG TABS 2 today, then 1 daily for 4 days 201 08/07/20 AZITHROMYCIN 71726409434 No Longer Active Columba Raida Act nael AUGMENTIN 875-125 MG TAB 1 po BID x 10 days AMOXICILLIN- POT CLAVULANATE 60758438043 No Longer Active Diya De Guzman APRN Active ZITHROMAX 250 MG TAB 2 po today, then 1 po q days 2-5 AZITHROMYCIN 67694838445 No Longer Active Carlton Hu MD Acti ve TRAMADOL HCL 50 MG TABS 1 po tid with ES Tylenol TRAMADOL HCL 49135304100 Active Carlton Hu MD Active PREMARIN 0.625 MG TABS TAKE 1 TAB BY MOUTH DAILY 07/25 ESTROGENS CONJUGATED 51817706228 No Longer Active Ridge Bess DO Active CYMBALTA 30 MG CPEP 1 cap by mouth daily DULOXE SNEHA HCL 11781902679 No Longer Active Ridge Bess DO Active AMOXICILLIN 500 MG CAP 1 tab by mouth 3 times daily x 10 days 20 14/04/28 AMOXICILLIN 91641536311 No Longer Active Carlton Hu MD Active AMOXICILLIN 500 MG CAP 1 tab by mouth 3 times daily x 10 days 20 13/03/08 AMOXICILLIN 57490116008 No Longer Active Carlton Hu MD Active PROMETHAZINE-CODEINE 6.25-10 MG/5ML SYRP 1 tsp by mouth ever y 8 hours prn cough PROMETHAZINE-CODEINE 32000267728 No Longer Active Robert Hu MD Active MEDROL (REYNA) 4 MG TABS 6 pills x 1 day, then 5 pill s x 1 day then 4 pills x 1 day, then 3 pills x 1 day, then 2 pills x 1 day, then 1 pill x 1 day, then stop METHYLPREDNISOLONE 31816169981 No Longer Active Parris Mora MD Active AZITHROMYCIN 250 MG TABS 2 po qd x 1 day, then 1 po qd x 4 days AZITHROMYCIN 90545974101 No Longer Active Perez Mora MD Active SYMBICORT 160-4.5 MCG/ACT AERO 2 puffs bid with rinse after 2011 BUDESONIDE-FORMOTEROL FUMARATE 52905631031 No Longer Active Perez Mora MD Active LYRICA 75 MG CAPS TAKE 1 CAPSULE BY MOUTH TWICE DAILY 2013 PREGABALIN 83476822889 No Longer Active Carlton Hu MD Active TOPAMAX 25 MG TABS 1 qHS x 1 week, then 1 BID x 1 week, then 1 qAM and 2 qHS x 1 week, then 2 BID (migraine prevention) TOPIRAMAT E 95041352969 No Longer Active Jerica FUENTES Active TOPAMAX 50 MG TABS take 1 tab po BID for migraines. 12/07/10 TOPIRAMATE 65656450756 No Longer Active Jerica FUENTES Ac tive TOPAMAX 100 MG TABS Take 1 tablet po bid TOPIRAMATE 4999 9435743 Active Elise Whitmore APRN Active TRIAMCINOLONE ACETONIDE 0.1 % CREA apply three times daily prn r beatrice TRIAMCINOLONE ACETONIDE 31342199718 No Longer Active Carlton Hu MD Active PAXIL 40 MG TAB take 1 tab po qday for depression PAROXETINE HCL 30824471275 Active Elise Whitmore APRN Active CHERATUSSIN AC 100-10 MG/5ML SYRP 5ml po q6hr PRN Cough GUAIFENESIN-CODEINE 03472480922 No Longer Active Carlton Hu MD Active MEDROL (REYNA) 4 MG TABS 6 tabs on day 1, 5 tabs on d ay 2, 4 tabs on day 3, 3 tabs on day 4, 2 tabs on day 5, 1 tab on day 6 METHYLPREDNISOLONE 38532714546 No Longer Active Perez Mora MD Active AZITHROMYCIN 250 MG TABS 2 po qd x 1 day, then 1 po qd x 4 days AZITHROMYCIN 05016088763 No Longer Active Perez Mora MD Active PROPRANOLOL HCL 60 MG TABS 1 PO Q D PROPRANOL OL HCL 51861041505 No Longer Active Perez Mora MD Active CHERATUSSIN AC 100-10 MG/5ML SYRP take one tsp po Q 6hours prn c ough GUAIFENESIN-CODEINE 94056502747 No Longer Active Perez Means Active AUGMENTIN 875-125 MG TAB 1 tab by mouth twice daily with food 20 12/03/31 AMOXICILLIN-POT CLAVULANATE 12187450230 No Longer Active Chanel Mora MD Active CHERATUSSIN AC 100-10 MG/5ML SYRP 1 tsp by mouth every 4 hours as needed for cough GUAIFENESIN-CODEINE 37382481271 No Longer Activ e Hugo Restrepo MD Active ACETAMINOPHEN-CODEINE #3 300-30 MG TABS 1 PO Q 4-6 HRS PRN PAIN ACETAMINOPHEN-CODEINE 19447887341 No Longer Active Hugo Restrepo MD Active LEVAQUIN 500 MG TABS take one po QD LEVOFLOXACI N 86781640032 No Longer Active Griffin HERNANDEZ Active PREDNISONE 20 MG TAB Take 3 tabs daily for 3 days , 2 tabs daily for 3 days, 1 tab daily for 3 days, 1/2 tab daily for 3 days P REDNISONE 78704783098 No Longer Active Carlton Hu MD Active AVELOX 400 MG TABS 1 tab by mouth daily MOXIFLO XACIN HCL 34556579939 No Longer Active Carlton Hu MD Active CHERATUSSIN AC 100-10 MG/5ML SYRP 1 tsp by mouth every 4 hours as needed for cough GUAIFENESIN-CODEINE 91534992135 No Longer Activ e Hugo Restrepo MD Active AVELOX 400 MG TABS 1 tab by mouth daily MOXIFLO XACIN HCL 75595506207 No Longer Active Marcy De La Rosa MD PhD Active TERBINAFINE HCL 250 MG TABS 1 qDay TERBINAF INE HCL 05963049852 No Longer Active Marcy De La Rosa MD PhD Active CHERATUSSIN AC 100-10 MG/5ML SYRP 1 tsp by mouth every 4 hours as needed for cough GUAIFENESIN-CODEINE 81059394308 No Longer Activ e Marcy De La Rosa MD PhD Active AVELOX 400 MG TABS 1 tab by mouth daily MOXIFLO XACIN HCL 35076463833 No Longer Active Marcy De La Rosa MD PhD Active HYDROCODONE-ACETAMINOPHEN 5-325 MG TABS 1 po q 6hr PRN cough 201 05/09/16 HYDROCODONE-ACETAMINOPHEN 77694684023 No Longer Active Marcy De La Rosa MD PhD Active PREDNISONE 20 MG TAB 2 tabs daily for 3 days, 1 t ab daily for 3 days, 1/2 tab daily for 2 days PREDNISONE 87686887190 No Longer Active Carlton Hu MD Active CEFDINIR 300 MG CAPS by mouth twice a day CEFDI ODILIA 36818035928 No Longer Active Carlton Hu MD Active HYDROCHLOROTHIAZIDE 25 MG TABS 1 TAB PO DAILY H YDROCHLOROTHIAZIDE 61511376945 Active Carlton Hu MD Active ACETAMINOPHEN-CODEINE #3 300-30 MG TABS 1 tablet po q 4-6hrs prn pain ACETAMINOPHEN-CODEINE 13796275215 No Longer Active Ridge Bess DO Active ZITHROMAX 250 MG TAB 2 po today, then 1 po q days 2-5 AZITHROMYCIN 74784138124 No Longer Active Carlton Hu MD Acti ve CHERATUSSIN AC 100-10 MG/5ML SYRP take 1 tsp po q4-6 hours prn c ough GUAIFENESIN-CODEINE 55614871444 No Longer Active Carlton Hu MD Active ACETAMINOPHEN-CODEINE #3 300-30 MG TABS 1 PO Q 4-6 HR PRN PAIN 2 ACETAMINOPHEN-CODEINE 50387615227 No Longer Active Carlton rich MD Active LORTAB 7.5-500 MG/15ML ELIX 7.5 ml po q 4 hour prn cough HYDROCODONE-ACETAMINOPHEN 19359120930 No Longer Active Carlton Hu MD Active PREDNISONE 20 MG TAB 1 po bid 3 days, then 1 po q day 3 days 201 05/03/07 PREDNISONE 14149773034 No Longer Active Carlton Hu MD Active ELMIRON 100 MG CAPS 2 tablets in the am and 1 tablet at hs PENTOSAN POLYSULFATE SODIUM 92314115972 Active Carlton Hu MD Ac tive CEFDINIR 300 MG CAPS by mouth twice a day CEFDI ODILIA 29325560379 No Longer Active Carlton Hu MD Active CEFDINIR 300 MG CAPS by mouth twice a day CEFDI ODILIA 01719699629 No Longer Active Carlton Hu MD Active CEFDINIR 300 MG CAPS by mouth twice a day CEFDI ODILIA 22524368058 No Longer Active Carlton Hu MD Active TESSALON PERLES 100 MG CAP 1 tablet by mouth 3 times daily a s needed for cough BENZONATATE 38956145583 No Longer Active Carlton bustamante MD Active CEFDINIR 300 MG CAPS by mouth twice a day CEFDI ODILIA 96407005245 No Longer Active Carlton Hu MD Active ZITHROMAX Z-REYNA 250 MG TABS 2 today, then 1 daily for 4 days 201 04/09/17 AZITHROMYCIN 64860693913 No Longer Active Hugo Restrepo MD Active TESSALON PERLES 100 MG CAP 1 tablet by mouth 3 times daily a s needed for cough TESSALON PERLES 100 MG CAP 672964 BENZONATATE I nactive PREDNISONE 20 MG TAB 1 po bid 3 days, then 1 po q day 3 days 201 05/03/07 PREDNISONE 20 MG TAB 122657 PREDNISONE Inactive LORTAB 7.5-500 MG/15ML ELIX 7.5 ml po q 4 hour prn cough LORTAB 7.5-500 MG/15ML ELIX HYDROCODONE-ACETAMINOPHEN Inacti ve ACETAMINOPHEN-CODEINE #3 300-30 MG TABS 1 PO Q 4-6 HR PRN PAIN 2 ACETAMINOPHEN-CODEINE #3 300-30 MG TABS ACETAMIN OPHEN-CODEINE Inactive CHERATUSSIN AC 100-10 MG/5ML SYRP take 1 tsp po q4-6 hours prn c ough CHERATUSSIN AC 100-10 MG/5ML SYRP 898695 GUAIFENESIN-CO DEINE Inactive ACETAMINOPHEN-CODEINE #3 300-30 MG TABS 1 tablet po q 4-6hrs prn pain ACETAMINOPHEN-CODEINE #3 300-30 MG TABS ACETAMIN OPHEN-CODEINE Inactive HYDROCODONE-ACETAMINOPHEN 5-325 MG TABS 1 po q 6hr PRN cough 201 05/09/16 HYDROCODONE-ACETAMINOPHEN 5-325 MG TABS 168987 HYDROCODONE-ACETAMINOPHEN Inactive AVELOX 400 MG TABS 1 tab by mouth daily A VELOX 400 MG TABS 679197 MOXIFLOXACIN HCL Inactive CHERATUSSIN AC 100-10 MG/5ML SYRP 1 tsp by mouth every 4 hours as needed for cough CHERATUSSIN AC 100-10 MG/5ML SYRP 795779 GUAIFENESIN-CODEINE Inactive TERBINAFINE HCL 250 MG TABS 1 qDay TERBINAFINE HCL 250 MG TABS 790259 TERBINAFINE HCL Inactive CHERATUSSIN AC 100-10 MG/5ML SYRP 1 tsp by mouth every 4 hours as needed for cough CHERATUSSIN AC 100-10 MG/5ML SYRP 515276 GUAIFENESIN-CODEINE Inactive ACETAMINOPHEN-CODEINE #3 300-30 MG TABS 1 PO Q 4-6 HRS PRN PAIN ACETAMINOPHEN-CODEINE #3 300-30 MG TABS ACETAMINOPHEN-CODEIN E Inactive CHERATUSSIN AC 100-10 MG/5ML SYRP 1 tsp by mouth every 4 hours as needed for cough CHERATUSSIN AC 100-10 MG/5ML SYRP 957684 GUAIFENESIN-CODEINE Inactive AUGMENTIN 875-125 MG TAB 1 tab by mouth twice daily with food 20 12/03/31 AUGMENTIN 875-125 MG TAB 984178 AMOXICILLIN-POT CLAVULA EFE Inactive CHERATUSSIN AC 100-10 MG/5ML SYRP take one tsp po Q 6hours prn c ough CHERATUSSIN AC 100-10 MG/5ML SYRP 670023 GUAIFENESIN-CO DEINE Inactive PROPRANOLOL HCL 60 MG TABS 1 PO Q D P ROPRANOLOL HCL 60 MG TABS 299837 PROPRANOLOL HCL Inactive TOPAMAX 50 MG TABS take 1 tab po BID for migraines. 12/07/10 TOPAMAX 50 MG TABS 799310 TOPIRAMATE Inactive TOPAMAX 25 MG TABS 1 qHS x 1 week, then 1 BID x 1 week, then 1 qAM and 2 qHS x 1 week, then 2 BID (migraine prevention) TOPAMAX 2 5 MG TABS 343559 TOPIRAMATE Inactive LYRICA 75 MG CAPS TAKE 1 CAPSULE BY MOUTH TWICE DAILY LYRICA 75 MG CAPS PREGABALIN Inactive SYMBICORT 160-4.5 MCG/ACT AERO 2 puffs bid with rinse after 2011 SYMBICORT 160-4.5 MCG/ACT AERO BUDESONIDE-FORMOT SÁNCHEZ FUMARATE Inactive PROMETHAZINE-CODEINE 6.25-10 MG/5ML SYRP 1 tsp by mouth ever y 8 hours prn cough PROMETHAZINE-CODEINE 6.25-10 MG/5ML SYRP 121825 PROMETHAZINE-CODEINE Inactive CYMBALTA 30 MG CPEP 1 cap by mouth daily CYMBALTA 30 MG CPEP 658360 DULOXETINE HCL Inactive PREMARIN 0.625 MG TABS TAKE 1 TAB BY MOUTH DAILY 07/25 PREMARIN 0.625 MG TABS ESTROGENS CONJUGATED Inactive CHERATUSSIN AC 100-10 MG/5ML SYRP 1 tsp by mouth every 4 hours as needed for cough CHERATUSSIN AC 100-10 MG/5ML SYRP 734566 GUAIFENESIN-CODEINE Inactive PROMETHAZINE-CODEINE 6.25-10 MG/5ML SYRP 1 tsp by mout h every 6 hours if needed for cough PROMETHAZINE-CODEINE 6.25-10 MG/5ML SYRP 394867 PROMETHAZINE-CODEINE Inactive CHERATUSSIN AC 100-10 MG/5ML SYRP 1 tsp by mouth every 4 hours as needed for cough CHERATUSSIN AC 100-10 MG/5ML SYRP 639890 GUAIFENESIN-CODEINE Inactive FLUTICASONE PROPIONATE 50 MCG/ACT SUSP 1 to 2 sprays each no stril daily FLUTICASONE PROPIONATE 50 MCG/ACT SUSP 7744333 FLUTICASONE PROPIONATE Inactive PREDNISONE 20 MG ORAL TABS 3 tab PO qd x 2d, 2 tab PO qd x 2d, 1 tab PO qd x 2d, 1/2 tab PO qd x 2d PREDNISONE 20 MG ORAL TABS 319023 PREDNISONE Inactive LEVOFLOXACIN 500 MG ORAL TABS 1 tab PO daily x 10 days LEVOFLOXACIN 500 MG ORAL TABS 142975 LEVOFLOXACIN Inactive CYCLOBENZAPRINE HCL 10 MG TABS 1 tablet by mouth BID prn had cherelle n CYCLOBENZAPRINE HCL 10 MG TABS 334116 CYCLOBENZAPRINE H CL Inactive ZOCOR 40 MG TAB 1 tab by mouth daily ZOCOR 40 M G TAB 153799 SIMVASTATIN Inactive TUSSIONEX PENNKINETIC ER 10-8 MG/5ML [...] empty FLUTICASONE PROPIONATE 50 MCG/ACT SUSP 17 78761 FLUTICASONE PROPIONATE Inactive TUSSIONEX PENNKINETIC ER 10-8 [...] 201 04/09/17 ZITHROMAX Z-REYNA 250 MG TABS 9235708 AZITHROMYCIN Inac tive CEFDINIR 300 MG CAPS [...] q days 2-5 ZITHROMAX 250 MG TAB 4510916 AZITHROMYCIN Inactive CEFDINIR 300 MG CAPS by mouth twice a day CEFDINIR 300 MG CAPS 20020704 CEFDINIR Inactive PREDNISONE 20 MG TAB 2 tabs daily for 3 days, 1 t ab daily for 3 days, 1/2 tab daily for 2 days PREDNISONE 20 MG TAB 308595 PREDNISON E Inactive AVELOX 400 MG TABS 1 tab by mouth daily A VELOX 400 MG TABS 846898 MOXIFLOXACIN HCL Inactive AVELOX 400 MG TABS 1 tab by mouth daily A VELOX 400 MG TABS 321417 MOXIFLOXACIN HCL Inactive PREDNISONE 20 MG TAB Take 3 tabs daily for 3 days , 2 tabs daily for 3 days, 1 tab daily for 3 days, 1/2 tab daily for 3 days PREDNISONE 20 MG TAB 364544 PREDNISONE Inactive LEVAQUIN 500 MG TABS take one po QD LEVAQUIN 50 0 MG TABS 771698 LEVOFLOXACIN Inactive AZITHROMYCIN 250 MG TABS 2 po qd x 1 day, then 1 po qd x 4 days AZITHROMYCIN 250 MG TABS 6000349 AZITHROMYCIN Inactiv e MEDROL (REYNA) 4 MG TABS 6 tabs on day 1, 5 tabs on d ay 2, 4 tabs on day 3, 3 tabs on day 4, 2 tabs on day 5, 1 tab on day 6 MEDROL (REYNA) 4 MG TABS 743385 METHYLPREDNISOLONE Inactive CHERATUSSIN AC 100-10 MG/5ML SYRP 5ml po q6hr PRN Cough CHERATUSSIN AC 100-10 MG/5ML SYRP 398196 GUAIFENESIN-CODEINE Inacti ve TRIAMCINOLONE ACETONIDE 0.1 % CREA apply three times daily prn r beatrice TRIAMCINOLONE ACETONIDE 0.1 % CREA 7232965 TRIAMCINOLONE ACETONIDE Inactive AZITHROMYCIN 250 MG TABS 2 po qd x 1 day, then 1 po qd x 4 days AZITHROMYCIN 250 MG TABS 3293586 AZITHROMYCIN Inactiv e MEDROL (REYNA) 4 MG TABS 6 pills x 1 day, then 5 pill s x 1 day then 4 pills x 1 day, then 3 pills x 1 day, then 2 pills x 1 day, then 1 pill x 1 day, then stop MEDROL (REYNA) 4 MG TABS 059195 METHYLPREDNISOLONE Inactive AMOXICILLIN 500 MG CAP 1 tab by mouth 3 times daily x 10 days 20 13/03/08 AMOXICILLIN 500 MG CAP 281143 AMOXICILLIN Inactive AMOXICILLIN 500 MG CAP 1 tab by mouth 3 times daily x 10 days 20 14/04/28 AMOXICILLIN 500 MG CAP 368498 AMOXICILLIN Inactive ZITHROMAX 250 MG TAB 2 po today, then 1 po q days 2-5 ZITHROMAX 250 MG TAB 4868980 AZITHROMYCIN Inactive AUGMENTIN 875-125 MG TAB 1 po BID x 10 days AUGMENTIN 875- 125 MG TAB 855217 AMOXICILLIN-POT CLAVULANATE Inactive ZITHROMAX Z-REYNA 250 MG TABS 2 today, then 1 daily for 4 days 201 08/07/20 ZITHROMAX Z-REYNA 250 MG TABS 3322618 AZITHROMYCIN Inac tive ZITHROMAX 250 MG TAB 2 po today, then 1 po q days 2-5 ZITHROMAX 250 MG TAB 7121302 AZITHROMYCIN Inactive ZITHROMAX Z-REYNA 250 MG TABS 2 today, then 1 daily for 4 days 201 08/30/03 ZITHROMAX Z-REYNA 250 MG TABS 5629810 AZITHROMYCIN Inac tive CEFDINIR 300 MG CAPS 1 po BID x 10 days C EFDINIR 300 MG CAPS 20020704 CEFDINIR Inactive ZITHROMAX 250 MG TAB 2 po today, then 1 po q days 2-5 ZITHROMAX 250 MG TAB 8935275 AZITHROMYCIN Inactive LEVAQUIN 500 MG TAB 1 tablet by mouth daily LEVAQUIN 500 MG TAB 658287 LEVOFLOXACIN Inactive SINGULAIR 10 MG TABS 1 po qday for allergies 2 SINGULAIR 10 MG TABS 089375 MONTELUKAST SODIUM Inactive AMOXICILLIN 500 MG CAPS 2 po BID x 10 days AMOXICILLIN 500 MG CAPS 553704 AMOXICILLIN Inactive PREDNISONE 20 MG TAB 2 tabs daily for 3 days, 1 t ab daily for 3 days, 1/2 tab daily for 2 days PREDNISONE 20 MG TAB 128460 PREDNISON E Inactive ZITHROMAX Z-REYNA 250 MG TABS 2 today, then 1 daily for 4 days 201 09/29/14 ZITHROMAX Z-REYNA 250 MG TABS 1703793 AZITHROMYCIN Inac tive PREDNISONE 20 MG TAB 2 tabs daily for 3 days, 1 t ab daily for 3 days, 1/2 tab daily for 2 days PREDNISONE 20 MG TAB 399927 PREDNISON E Inactive ZITHROMAX 250 MG TAB 2 po today, then 1 po q days 2-5 ZITHROMAX 250 MG TAB 0926980 AZITHROMYCIN Inactive Vital Signs Date Name Value [...] - Chem istry sodium, serum 132 mmol/L 436-545 5042/07/12 potassium, serum 2.7 mmol/L 3.5-5.2 chloride, serum 93 mmol/L 98-107 carbon dioxide, venous blood 30.8 mmol/L 21.0-32 .0 blood glucose 107 mg/dL 65-110 calcium, serum 9.3 mg/dL 8.5-10.1 urea nitrogen, blood 12 mg/dL 7-18 creatinine, serum 1.00 mg/dL 0.60-1.30 Lab Report: Rapid Strep - Lab Microbial identification kit, rapid strep method Negative Negative Encounters Code Encounter Date Provider Facility CPT-50155 Level 3 Est. Patient 12:17:50 CDT Hugo Restrepo MD [facility] CPT-88719 Level 3 Est. Patient 13:42:[address] [facility] CPT-75781 Level 3 Est. Patient 13:23:51 CDT Diya cobian [facility] CPT-68477 Level 3 Est. Patient 14:22:19 WINCHMAN/CRANE OPERATOR Diya cobian [facility] CPT-98011 Level 3 Est. Patient 10:11:46 CDT Carlton rich MD [facility] CPT-88318 Level 3 Est. Patient 17:29:43 CDT Italo [facility] CPT-21273 Level 3 Est. Patient 11:58:06 CDT Italo [facility] CPT-40010 Level 4 Est. Patient 14:36:51 CDT Carlton rich MD [facility] [place]-[id number] Level 3 Est. Patient 18:16:00 WINCHMAN/CRANE OPERATOR Blaine Freeman [facility] CPT-82691 Level 3 Est. Patient 09:45:49 WINCHMAN/CRANE OPERATOR Carlton rich MD [facility]-09484 Level 3 Est. Patient 13:19:20 CDT Carlton rich MD [facility]-51709 Level 3 Est. Patient 13:06:43 CDT Ridge tam DO [facility] CPT-52813 Level 3 Est. Patient 10:03:07 CDT Perez Mora MD [facility]-68387 Level 3 Est. Patient 19:50:35 WINCHMAN/CRANE OPERATOR Carlton rich MD [facility]-13556 Level 4 Est. Patient 18:05:01 WINCHMAN/CRANE OPERATOR Carlton rich MD [facility] CPT-80949 Level 3 Est. Patient 10:45:55 WINCHMAN/CRANE OPERATOR Hugo Restrepo MD [facility] CPT-98993 Level 3 Est. Patient 14:12:49 CDT Griffin lincoln [facility] CPT-45306 Level 3 Est. Patient 17:37:24 CDT Carlton rich MD [facility] CPT-61499 Level 3 Est. Patient 16:51:54 CDT Carlton rich MD [facility] CPT-64018 Level 3 Est. Patient 12:18:11 CDT Hugo Restrepo MD [facility]-82369 Level 3 Est. Patient 11:30:25 CDT Marcy crisostomo MD PhD [facility]-78676 Level 3 Est. Patient 12:00:47 WINCHMAN/CRANE OPERATOR Carlton rich MD [facility]-60530 Level 3 Est. Patient 16:31:06 WINCHMAN/CRANE OPERATOR Carlton rich MD [facility] CPT-06523 Level 3 Est. Patient 16:23:24 WINCHMAN/CRANE OPERATOR Ridge tam [facility] CPT-62975 Level 3 Est. Patient 12:34:12 CDT Carlton rich MD [facility] CPT-86724 Level 2 Est. Patient 15:43:33 CDT Robi armstrong MD [facility] CPT-81158 Level 4 Est. Patient 14:04:44 CDT Carlton rich MD [facility] CPT-15386 Level 3 Est. Patient 05:47:59 CDT Ridge tam [facility] CPT-63680 Level 3 Est. 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 Patient 14:26:53 CDT Hugo Restrepo MD [facility] Procedures Code Procedure Name Date Entry Date Standard Desc ription CPT-J1040 Depo Medrol 80 mg (Methyl Prednisolone A cetate) 10:42:44 CDT CPT-J1100 Decadron 8mg (Dexamethasone) 10:42:44 CDT 2 CPT-J0696 Rocephin 1gm Inj Solr 14:32:13 CDT CPT-J1020 Depo Medrol 60 mg (Methyl Prednisolone A cetate) 14:32:13 CDT CPT-J1100 Decadron 6mg (Dexamethasone) 14:32:13 CDT 2 CPT-83417 Hip bilat min 2V w AP pelvis 13:16:20 CDT 2 CPT-15929 Pelvis only 13:07:33 CDT CPT-28334 Spec Collection and Handling Fee 11:25:12 C DT CPT-60220 Fluzone Quadrivalent Intramuscular Suspe nsion 0.5 ML 14:31:55 CDT CPT-83839 Abx/Therapy Injection 13:28:47 WINCHMAN/[employer] OPERATOR CPT-J2930 Solu Medrol 125 mg (Methyl Prednisolone Sodium Succinate) 12:00:47 WINCHMAN/[employer]ANE OPERATOR CPT-01705 Venipuncture Draw Fee 11:33:31 CDT CPT-90713 EKG Trac and Interp 11:21:09 CDT CPT-55941 Chest 2V Frontal and Lat 11:21:09 CDT 12/15 CPT-38522 Venipuncture Draw Fee 08:02:34 CDT CPT-04514 Chest 2V Frontal and Lat 05:47:59 CDT 06/05
--- OUTSIDE RECORDS SUMMARY | 2019-10-08 09:47 | XMS REPORT | Clinical Summary ---
Author Author Caitlin, Juliana Martinez Organization [facility] Address Unknown Phone [...] ICD-490 Inactive Hugo Restrepo MD 201 10/02/29 Rhinitis, acute ICD-460 Inactive Hugo Ochoa MD Pharyngitis acute ICD-462 Inactive Hugo gore MD Medication List Medication Instructions Start Date Stop Date Generic Name NDC Status Provider Patient Instruction AUGMENTIN 875-125 MG ORAL TABLET 1 po BID x 10 days 20 16/03/22 AMOXICILLIN-POT CLAVULANATE [id number] No Longer Active Elise Whitmore APRN Active TERBINAFINE HCL 250 MG ORAL TABLET 1 qDay for nail fungus 7 TERBINAFINE HCL 62535340071 No Longer Active Carlton Harkins ctive TUSSIONEX PENNKINETIC ER 10-8 MG/5ML ORAL SUSPENSION E XTENDED RELEASE 5ml po q12hr PRN Cough HYDROCOD POLST-CHLORPHEN POLST 96550713205 Active Carlton Hu MD Active PREDNISONE 20 MG ORAL TABLET 1 tab twice daily for 3 d ay, then one daily for three days PREDNISONE 12324842701 Active Carlton Hu MD Active AMOXICILLIN 500 MG ORAL CAPSULE 1 cap by mouth three times a day AMOXICILLIN 46316040325 No Longer Active Carlton Hu MD Active ELMIRON 100 MG ORAL CAPSULE 2 tablets in the am and 1 tablet at hs PENTOSAN POLYSULFATE SODIUM 76628826117 No Longer Active Robert Hu MD Active MUCINEX D 60-600 MG ORAL TABLET EXTENDED RELEASE 12 HOUR 1 t ab po q am PSEUDOEPHEDRINE-GUAIFENESIN 17267976670 No Longer Act nael Carlton Hu MD Active MUCINEX DM MAXIMUM STRENGTH 60-1200 MG ORAL TABLET EXT ENDED RELEASE 12 HOUR 1 tab po q am DEXTROMETHORPHAN-GUAIFENESIN 32450405228 No Longer Active Carlton Hu MD Active TUSSIONEX PENNKINETIC ER 10-8 MG/5ML ORAL SUSPENSION E XTENDED RELEASE 5ml po q12hr PRN Cough HYDROCOD POLST-CHLORPHEN POLST 5 9598178659 No Longer Active Carlton Hu MD Active POTASSIUM CHLORIDE ER 20 MEQ ORAL TABLET EXTENDED RELE ASE Take 1 by mouth 4 times daily for 7 days POTASSIUM CHLORIDE 59664896877 No Longer Active Carlton Hu MD Active ZITHROMAX 250 MG ORAL TABLET 2 po today, then 1 po q days 2-5 20 14/09/04 AZITHROMYCIN 80863066688 No Longer Active Elise Whitmore APRN Active TUSSIONEX PENNKINETIC ER 10-8 MG/5ML ORAL SUSPENSION E XTENDED RELEASE 5 ml twice a day as needed for cough HYDROCOD POLST-CHLORPH EN POLST 88640479653 No Longer Active Elise Whitmore APRN Active MONTELUKAST SODIUM 10 MG ORAL TABLET 1 po daily for Allergy MONTELUKAST SODIUM 73672578084 Active Carlton Hu MD Ac tive TUSSIONEX PENNKINETIC ER 10-8 MG/5ML ORAL SUSPENSION E XTENDED RELEASE 5ml po q12hr PRN Cough HYDROCOD POLST-CHLORPHEN POLST 5 1167504111 No Longer Active Hugo Restrepo MD Active GABAPENTIN 100 MG ORAL CAPSULE 1 po BID for fibromyalgia GABAPENTIN 45186951277 Active Carlton Hu MD Active LYRICA 100 MG ORAL CAPSULE Take 1 tab po BID for fibromyalgia 20 11/08/21 PREGABALIN 84835262839 No Longer Active Elise Whitmore APRN Active PROAIR HFA 108 (90 Base) MCG/ACT INHALATION AEROSOL SO LUTION 2 puffs four times a day as needed ALBUTEROL SULFATE 34477291647 Active Lyndsay Whitmore APRN Active PREDNISONE 20 MG ORAL TABLET 2 tabs daily for 3 days, 1 tab daily for 3 days, 1/2 tab daily for 2 days PREDNISONE 16308236227 No Longer Active Jillina Frazell BILL Active TUSSIONEX PENNKINETIC ER 10-8 MG/5ML ORAL SUSPENSION E XTENDED RELEASE 5 mL PO q 12 hrs PRN cough HYDROCOD POLST-CHLORPHEN POLST 951436 81864 No Longer Active Jillina Frazell EVENT SERVICES MANAGER Active FLUTICASONE PROPIONATE 50 MCG/ACT NASAL SUSPENSION 2 s prays each nostril daily until bottle is empty FLUTICASONE PROPIONATE 465058005 99 No Longer Active Jillina Frazell EVENT SERVICES MANAGER Active ASMANEX 60 METERED DOSES 220 MCG/INH INHALATION AEROSO L POWDER BREATH ACTIVATED 1 puff bid with rinse after MOMETASONE FUROATE 1076297 4102 No Longer Active Jillina Frazell EVENT SERVICES MANAGER Active ZITHROMAX Z-REYNA 250 MG ORAL TABLET 2 today, then 1 daily for 4 d ays AZITHROMYCIN 17927354360 No Longer Active Elise Whitmore APRN Active TUSSIONEX PENNKINETIC ER 10-8 MG/5ML ORAL SUSPENSION E XTENDED RELEASE 5ml po q12hr PRN Cough HYDROCOD POLST-CHLORPHEN POLST 5 8468121659 No Longer Active Elise Whitmore APRN Active PREDNISONE 20 MG ORAL TABLET 2 tabs daily for 3 days, 1 tab daily for 3 days, 1/2 tab daily for 2 days PREDNISONE 34253804555 No Longer Active Diya De Guzman APRN Active AMOXICILLIN 500 MG ORAL CAPSULE 2 po BID x 10 days 201 09/29/08 AMOXICILLIN 38513938815 No Longer Active Jillina Cesarl EVENT SERVICES MANAGER Act nael SINGULAIR 10 MG ORAL TABLET 1 po qday for allergies 20 14/01/12 MONTELUKAST SODIUM 48950992859 No Longer Active Carlton Hu MD Active LEVAQUIN 500 MG ORAL TABLET 1 tablet by mouth daily 20 13/09/24 LEVOFLOXACIN 56274256368 No Longer Active Carlton Hu MD Acti ve FLUTICASONE PROPIONATE 50 MCG/ACT NASAL SUSPENSION 2 s prays each nostril daily for 2 weeks, then 1 spray each nostril daily. FLUTICASONE PROPIONATE 03641098258 Active Elise Whitmore APRN Active ZITHROMAX 250 MG ORAL TABLET 2 po today, then 1 po q days 2-5 20 13/08/10 AZITHROMYCIN 22305725346 No Longer Active Elise Whitmore APRN Active XANAX 0.5 MG ORAL TABLET one tablet by mouth daily prn anxiety 2015 ALPRAZOLAM 46189804141 Active Carlton Hu MD Active CYMBALTA 30 MG ORAL CAPSULE DELAYED RELEASE PARTICLES 1 cap by mouth daily for depression DULOXETINE HCL 00588779114 Active Carlton beltrán MD Active CEFDINIR 300 MG ORAL CAPSULE 1 po BID x 10 days CEFDINIR 05886455034 No Longer Active Carlton Hu MD Active ZOCOR 40 MG ORAL TABLET 1 tab by mouth daily SI MVASTATIN 55745681876 No Longer Active Carlton Hu MD Active CYCLOBENZAPRINE HCL 10 MG ORAL TABLET 1 tablet by mouth BID prn had pain CYCLOBENZAPRINE HCL 71387315314 No Longer Active Jayden Hu MD Active LEVOFLOXACIN 500 MG ORAL TABLET 1 tab PO daily x 10 days LEVOFLOXACIN 82543684149 No Longer Active Carlton Hu MD Acti ve PREDNISONE 20 MG ORAL TABLET 3 tab PO qd x 2d, 2 tab P O qd x 2d, 1 tab PO qd x 2d, 1/2 tab PO qd x 2d PREDNISONE 92348968927 No Lo nger Active Carlton Hu MD Active FLUTICASONE PROPIONATE 50 MCG/ACT NASAL SUSPENSION 1 t o 2 sprays each nostril daily FLUTICASONE PROPIONATE 66186296273 No Longer Ac tive Blaine HERNANDEZ Active CHERATUSSIN AC 100-10 MG/5ML ORAL SYRUP 1 tsp by mouth every 4 hours as needed for cough GUAIFENESIN-CODEINE 70231252613 No Longe r Active Blaine HERNANDEZ Active PROMETHAZINE-CODEINE 6.25-10 MG/5ML ORAL SYRUP 1 tsp b y mouth every 6 hours if needed for cough PROMETHAZINE-CODEINE 94324107645 No Longer Active Blaine HERNANDEZ Active CHERATUSSIN AC 100-10 MG/5ML ORAL SYRUP 1 tsp by mouth every 4 hours as needed for cough GUAIFENESIN-CODEINE 95331360125 No Longe r Active Blaine HERNANDEZ Active ZITHROMAX Z-REYNA 250 MG ORAL TABLET 2 today, then 1 daily for 4 d ays AZITHROMYCIN 55679031700 No Longer Active Columba Parrish Act nael ZITHROMAX 250 MG ORAL TABLET 2 po today, then 1 po q days 2-5 20 14/03/21 AZITHROMYCIN 55454149990 No Longer Active Carlton Hu MD Active ZITHROMAX Z-REYNA 250 MG ORAL TABLET 2 today, then 1 daily for 4 d ays AZITHROMYCIN 12800133304 No Longer Active Columba Parrish Act nael AUGMENTIN 875-125 MG ORAL TABLET 1 po BID x 10 days 13/01/20 AMOXICILLIN-POT CLAVULANATE 05497542562 No Longer Active Diya Daphnebrayan KHAN Active ZITHROMAX 250 MG ORAL TABLET 2 po today, then 1 po q days 2-5 12/08/14 AZITHROMYCIN 34026003790 No Longer Active Carlton Hu MD Active TRAMADOL HCL 50 MG ORAL TABLET 1 po tid with ES Tylenol TRAMADOL HCL 88993139968 Active Carlton Hu MD Active PREMARIN 0.625 MG ORAL TABLET TAKE 1 TAB BY MOUTH DAILY ESTROGENS CONJUGATED 24083794991 No Longer Active Ridge Bess DO A ctive CYMBALTA 30 MG ORAL CAPSULE DELAYED RELEASE PARTICLES 1 cap by mouth daily DULOXETINE HCL 08638803153 No Longer Active Ridge tam DO Active AMOXICILLIN 500 MG ORAL CAPSULE 1 tab by mouth 3 times daily x 10 days AMOXICILLIN 67701999775 No Longer Active Carlton bustamante MD Active AMOXICILLIN 500 MG ORAL CAPSULE 1 tab by mouth 3 times daily x 10 days AMOXICILLIN 97599083402 No Longer Active Carlton bustamante MD Active PROMETHAZINE-CODEINE 6.25-10 MG/5ML ORAL SYRUP 1 tsp b y mouth every 8 hours prn cough PROMETHAZINE-CODEINE 82483833518 No Longer Acti ve Carlton Hu MD Active MEDROL 4 MG ORAL TABLET THERAPY PACK 6 pills x 1 day, then 5 pills x 1 day then 4 pills x 1 day, then 3 pills x 1 day, then 2 pills x 1 day, then 1 pill x 1 day, then stop METHYLPREDNISOLONE 66859203007 No Long er Active Perez Mora MD Active AZITHROMYCIN 250 MG ORAL TABLET 2 po qd x 1 day, then 1 po q d x 4 days AZITHROMYCIN 44146358283 No Longer Active Perez Ambriz MD Active SYMBICORT 160-4.5 MCG/ACT INHALATION AEROSOL 2 puffs bid wit h rinse after BUDESONIDE-FORMOTEROL FUMARATE 88887874327 N o Longer Active Perez Mora MD Active LYRICA 75 MG ORAL CAPSULE TAKE 1 CAPSULE BY MOUTH TWICE DAILY PREGABALIN 01415294747 No Longer Active Carlton Hu MD Acti ve TOPAMAX 25 MG ORAL TABLET 1 qHS x 1 week, then 1 BID x 1 week, then 1 qAM and 2 qHS x 1 week, then 2 BID (migraine prevention) T OPIRAMATE 39213871841 No Longer Active Jerica FUENTES Active TOPAMAX 50 MG ORAL TABLET take 1 tab po BID for migraines. 07/02 TOPIRAMATE 95290370867 No Longer Active Jerica FUENTES Active TOPAMAX 100 MG ORAL TABLET Take 1 tablet po bid TO PIRAMATE 11436799212 Active Carlton Hu MD Active TRIAMCINOLONE ACETONIDE 0.1 % EXTERNAL CREAM apply three roger es daily prn rash TRIAMCINOLONE ACETONIDE 50995429938 No Longer Active Carlton Hu MD Active PAXIL 40 MG ORAL TABLET take 1 tab po qday for depression 0 PAROXETINE HCL 35247532721 Active Carlton Hu MD Active CHERATUSSIN AC 100-10 MG/5ML ORAL SYRUP 5ml po q6hr PRN Cough 20 13/04/14 GUAIFENESIN-CODEINE 28750454960 No Longer Active Carlton Hu MD Active MEDROL 4 MG ORAL TABLET THERAPY PACK 6 tabs on day 1, 5 tabs on day 2, 4 tabs on day 3, 3 tabs on day 4, 2 tabs on day 5, 1 tab on day 6 2013 METHYLPREDNISOLONE 29608382248 No Longer Active Perez Mora MD Active AZITHROMYCIN 250 MG ORAL TABLET 2 po qd x 1 day, then 1 po q d x 4 days AZITHROMYCIN 58525471835 No Longer Active Perez Ambriz MD Active PROPRANOLOL HCL 60 MG ORAL TABLET 1 PO Q D PROPRANOLOL HCL 52006168720 No Longer Active Perez Mora MD Activ e CHERATUSSIN AC 100-10 MG/5ML ORAL SYRUP take one tsp po Q 6h ours prn cough GUAIFENESIN-CODEINE 11500052767 No Longer Active Zia Mora MD Active AUGMENTIN 875-125 MG ORAL TABLET 1 tab by mouth twice daily with food AMOXICILLIN-POT CLAVULANATE 71140998717 No Longer Act nael Perez Mora MD Active CHERATUSSIN AC 100-10 MG/5ML ORAL SYRUP 1 tsp by mouth every 4 hours as needed for cough GUAIFENESIN-CODEINE 10829514331 No Longe r Active Hugo Restrepo MD Active ACETAMINOPHEN-CODEINE #3 300-30 MG ORAL TABLET 1 PO Q 4-6 HRS CA N PAIN ACETAMINOPHEN-CODEINE 65108773244 No Longer Active Hugo Restrepo MD Active LEVAQUIN 500 MG ORAL TABLET take one po QD LEVO FLOXACIN 03100651303 No Longer Active Griffin HERNANDEZ Active PREDNISONE 20 MG ORAL TABLET Take 3 tabs daily for 3 d ays, 2 tabs daily for 3 days, 1 tab daily for 3 days, 1/2 tab daily for 3 days 11/07 PREDNISONE 77547239350 No Longer Active Carlton Hu MD Acti ve AVELOX 400 MG ORAL TABLET 1 tab by mouth daily MOXIFLOXACIN HCL 12821764589 No Longer Active Carlton Hu MD Active CHERATUSSIN AC 100-10 MG/5ML ORAL SYRUP 1 tsp by mouth every 4 hours as needed for cough GUAIFENESIN-CODEINE 11982901187 No Longe r Active Hugo Restrepo MD Active AVELOX 400 MG ORAL TABLET 1 tab by mouth daily MOXIFLOXACIN HCL 64300362478 No Longer Active Marcy De La Rosa MD PhD Active TERBINAFINE HCL 250 MG ORAL TABLET 1 qDay T ERBINAFINE HCL 77011170145 No Longer Active Marcy De La Rosa MD PhD Active CHERATUSSIN AC 100-10 MG/5ML ORAL SYRUP 1 tsp by mouth every 4 hours as needed for cough GUAIFENESIN-CODEINE 63879177145 No Longe r Active Marcy De La Rosa MD PhD Active AVELOX 400 MG ORAL TABLET 1 tab by mouth daily MOXIFLOXACIN HCL 43259409875 No Longer Active Marcy De La Rosa MD PhD Active HYDROCODONE-ACETAMINOPHEN 5-325 MG ORAL TABLET 1 po q 6hr PRN co ugh HYDROCODONE-ACETAMINOPHEN 62543323778 No Longer Active Marcy De La Rosa MD PhD Active PREDNISONE 20 MG ORAL TABLET 2 tabs daily for 3 days, 1 tab daily for 3 days, 1/2 tab daily for 2 days PREDNISONE 55317148144 No Longer Active Carlton Hu MD Active CEFDINIR 300 MG ORAL CAPSULE by mouth twice a day 2011 CEFDINIR 91907047784 No Longer Active Carlton Hu MD Acti ve HYDROCHLOROTHIAZIDE 25 MG ORAL TABLET 1 TAB PO DAILY HYDROCHLOROTHIAZIDE 23588487695 Active Carlton Hu MD A ctive ACETAMINOPHEN-CODEINE #3 300-30 MG ORAL TABLET 1 tablet po q 4-6 hrs prn pain ACETAMINOPHEN-CODEINE 38503672200 No Longer Active Ridge Bess DO Active ZITHROMAX 250 MG ORAL TABLET 2 po today, then 1 po q days 2-5 20 03/07/07 AZITHROMYCIN 13123388191 No Longer Active Carlton Hu MD Active CHERATUSSIN AC 100-10 MG/5ML ORAL SYRUP take 1 tsp po q4-6 h ours prn cough GUAIFENESIN-CODEINE 54805690985 No Longer Active Jayden Hu MD Active ACETAMINOPHEN-CODEINE #3 300-30 MG ORAL TABLET 1 PO Q 4-6 HR PRN PAIN ACETAMINOPHEN-CODEINE 75882587498 No Longer Active Arnol Hu MD Active LORTAB 7.5-500 MG/15ML ORAL ELIXIR 7.5 ml po q 4 hour prn cough HYDROCODONE-ACETAMINOPHEN 44800351364 No Longer Active Carlton Hu MD Active PREDNISONE 20 MG ORAL TABLET 1 po bid 3 days, then 1 po q day 3 days PREDNISONE 74158225275 No Longer Active Carlton Hu MD Active CEFDINIR 300 MG ORAL CAPSULE by mouth twice a day 2011 CEFDINIR 96317380058 No Longer Active aCrlton Hu MD Acti ve CEFDINIR 300 MG ORAL CAPSULE by mouth twice a day 2010 CEFDINIR 88401179867 No Longer Active Carlton Hu MD Acti ve CEFDINIR 300 MG ORAL CAPSULE by mouth twice a day 2010 CEFDINIR 27775495407 No Longer Active Carlton Hu MD Acti ve TESSALON PERLES 100 MG ORAL CAPSULE 1 tablet by mouth 3 times daily as needed for cough BENZONATATE 07474784998 No Longer Active Carlton Hu MD Active CEFDINIR 300 MG ORAL CAPSULE by mouth twice a day 2010 CEFDINIR 22946011394 No Longer Active Carlton Hu MD Acti ve ZITHROMAX Z-REYNA 250 MG ORAL TABLET 2 today, then 1 daily for 4 d ays AZITHROMYCIN 73536693954 No Longer Active Hugo Restrepo MD Active TESSALON PERLES 100 MG ORAL CAPSULE 1 tablet by mouth 3 times daily as needed for cough TESSALON PERLES 100 MG ORAL CAPSULE 12802 7 BENZONATATE Inactive PREDNISONE 20 MG ORAL TABLET 1 po bid 3 days, then 1 po q day 3 days PREDNISONE 20 MG ORAL TABLET 200650 PREDNISONE [place] ctive LORTAB 7.5-500 MG/15ML ORAL ELIXIR 7.5 [...] cough CHERATUSSIN AC 100-10 MG/5ML ORAL SYRUP 051723 GUAIFENESIN-CODEINE Inactive ACETAMINOPHEN-CODEINE #3 300-30 MG ORAL TABLET 1 tablet po q 4-6 hrs prn pain ACETAMINOPHEN-CODEINE #3 300-30 MG ORAL TABLET ACETAMINOPHEN-CODEINE Inactive HYDROCODONE-ACETAMINOPHEN 5-325 MG ORAL TABLET 1 po q 6hr PRN co ugh HYDROCODONE-ACETAMINOPHEN 5-325 MG ORAL TABLET 769919 HYDROCODONE-ACETAMINOPHEN Inactive AVELOX 400 MG ORAL TABLET 1 tab by mouth daily AVELOX 400 MG ORAL TABLET 709027 MOXIFLOXACIN HCL Inactive CHERATUSSIN AC 100-10 MG/5ML ORAL SYRUP 1 tsp by mouth every 4 hours as needed for cough CHERATUSSIN AC 100-10 MG/5ML ORAL SYRUP 9 37529 GUAIFENESIN-CODEINE Inactive TERBINAFINE HCL 250 MG ORAL TABLET 1 qDay 07/08 TERBINAFINE HCL 250 MG ORAL TABLET 744606 TERBINAFINE HCL Inactive CHERATUSSIN AC 100-10 MG/5ML ORAL SYRUP 1 tsp by mouth every 4 hours as needed for cough CHERATUSSIN AC 100-10 MG/5ML ORAL SYRUP 9 55578 GUAIFENESIN-CODEINE Inactive ACETAMINOPHEN-CODEINE #3 300-30 MG ORAL TABLET 1 PO Q 4-6 HRS CA N PAIN ACETAMINOPHEN-CODEINE #3 300-30 MG ORAL TABLET ACETAMINOPHEN-CODEINE Inactive CHERATUSSIN AC 100-10 MG/5ML ORAL SYRUP 1 tsp by mouth every 4 hours as needed for cough CHERATUSSIN AC 100-10 MG/5ML ORAL SYRUP 9 70682 GUAIFENESIN-CODEINE Inactive AUGMENTIN 875-125 MG ORAL TABLET 1 tab by mouth twice daily with food AUGMENTIN 875-125 MG ORAL TABLET 060986 AMOXICIL MADELINE-POT CLAVULANATE Inactive CHERATUSSIN AC 100-10 MG/5ML ORAL SYRUP take one tsp po Q 6h ours prn cough CHERATUSSIN AC 100-10 MG/5ML ORAL SYRUP 183584 GUAIFENESIN-CODEINE Inactive PROPRANOLOL HCL 60 MG ORAL TABLET 1 PO Q D PROPRANOLOL HCL 60 MG ORAL TABLET 456287 PROPRANOLOL HCL Inactive TOPAMAX 50 MG ORAL TABLET take 1 tab po BID for migraines. 07/02 TOPAMAX 50 MG ORAL TABLET 420654 TOPIRAMATE Inacti ve TOPAMAX 25 MG ORAL TABLET 1 qHS x 1 week, then 1 BID x 1 week, then 1 qAM and 2 qHS x 1 week, then 2 BID (migraine prevention) TOPAMAX 25 MG ORAL TABLET 706349 TOPIRAMATE Inactive LYRICA 75 MG ORAL CAPSULE TAKE 1 CAPSULE BY MOUTH TWICE DAILY LYRICA 75 MG ORAL CAPSULE PREGABALIN Inactive SYMBICORT 160-4.5 MCG/ACT INHALATION AEROSOL 2 puffs bid wit h rinse after SYMBICORT 160-4.5 MCG/ACT INHALATION AEROSOL BUDESONIDE- FORMOTEROL FUMARATE Inactive PROMETHAZINE-CODEINE 6.25-10 MG/5ML ORAL SYRUP 1 tsp b y mouth every 8 hours prn cough PROMETHAZINE-CODEINE 6.25-10 MG/ 5ML ORAL SYRUP 764800 PROMETHAZINE-CODEINE Inactive CYMBALTA 30 MG ORAL CAPSULE DELAYED RELEASE PARTICLES 1 cap by mouth daily CYMBALTA 30 MG ORAL CAPSULE DELAYED RELE ASE PARTICLES 607391 DULOXETINE HCL Inactive PREMARIN 0.625 MG ORAL TABLET TAKE 1 TAB BY MOUTH DAILY PREMARIN 0.625 MG ORAL TABLET ESTROGENS CONJUGATED Inactive CHERATUSSIN AC 100-10 MG/5ML ORAL SYRUP 1 tsp by mouth every 4 hours as needed for cough CHERATUSSIN AC 100-10 MG/5ML ORAL SYRUP 9 70087 GUAIFENESIN-CODEINE Inactive PROMETHAZINE-CODEINE 6.25-10 MG/5ML ORAL SYRUP 1 tsp b y mouth every 6 hours if needed for cough PROMETHAZINE-CODEINE 6.25-10 MG/5ML ORAL SYRUP 202814 PROMETHAZINE-CODEINE Inactive CHERATUSSIN AC 100-10 MG/5ML ORAL SYRUP 1 tsp by mouth every 4 hours as needed for cough CHERATUSSIN AC 100-10 MG/5ML ORAL SYRUP 9 21898 GUAIFENESIN-CODEINE Inactive FLUTICASONE PROPIONATE 50 MCG/ACT NASAL SUSPENSION 1 t o 2 sprays each nostril daily FLUTICASONE PROPIONATE 50 MCG/AC T NASAL SUSPENSION 4363649 FLUTICASONE PROPIONATE Inactive PREDNISONE 20 MG ORAL TABLET 3 tab PO qd x 2d, 2 tab P O qd x 2d, 1 tab PO qd x 2d, 1/2 tab PO qd x 2d PREDNISONE 20 MG ORAL TAB LET 244564 PREDNISONE Inactive LEVOFLOXACIN 500 MG ORAL TABLET 1 tab PO daily x 10 days LEVOFLOXACIN 500 MG ORAL TABLET 749555 LEVOFLOXACIN Inactive CYCLOBENZAPRINE HCL 10 MG ORAL TABLET 1 tablet by mouth BID prn had pain CYCLOBENZAPRINE HCL 10 MG ORAL TABLET 177048 CYCLOBENZAPRINE HCL Inactive ZOCOR 40 MG ORAL TABLET 1 tab by mouth daily 4 ZOCOR 40 MG ORAL TABLET 497473 SIMVASTATIN Inactive TUSSIONEX PENNKINETIC ER 10-8 MG/5ML [...] FLUTICASONE PROPIO EFE 50 MCG/ACT NASAL SUSPENSION 9743094 FLUTICASONE PROPIONATE Inactive TUSSIONEX PENNKINETIC ER 10-8 [...] ays ZITHROMAX Z-REYNA 250 MG ORAL TABLET 246370 AZITHROMYCIN Inactive CEFDINIR 300 MG ORAL CAPSULE by mouth twice a day 2010 CEFDINIR 300 MG ORAL CAPSULE 200146 CEFDINIR Inactive CEFDINIR 300 MG ORAL CAPSULE by mouth twice a day 2010 CEFDINIR 300 MG ORAL CAPSULE 276160 CEFDINIR Inactive CEFDINIR 300 MG ORAL CAPSULE by mouth twice a day 2010 CEFDINIR 300 MG ORAL CAPSULE 714912 CEFDINIR Inactive CEFDINIR 300 MG ORAL CAPSULE by mouth twice a day 2011 CEFDINIR 300 MG ORAL CAPSULE 369798 CEFDINIR Inactive ZITHROMAX 250 MG ORAL TABLET 2 po today, then 1 po q days 2-5 03/07/07 ZITHROMAX 250 MG ORAL TABLET 627905 AZITHROMYCIN Greer ctive CEFDINIR 300 MG ORAL CAPSULE by mouth twice a day 2011 CEFDINIR 300 MG ORAL CAPSULE 704107 CEFDINIR Inactive PREDNISONE 20 MG ORAL TABLET 2 tabs daily for 3 days, 1 tab daily for 3 days, 1/2 tab daily for 2 days PREDNISONE 20 MG ORAL T ABLET 128260 PREDNISONE Inactive AVELOX 400 MG ORAL TABLET 1 tab by mouth daily AVELOX 400 MG ORAL TABLET 197917 MOXIFLOXACIN HCL Inactive AVELOX 400 MG ORAL TABLET 1 tab by mouth daily AVELOX 400 MG ORAL TABLET 274821 MOXIFLOXACIN HCL Inactive PREDNISONE 20 MG ORAL TABLET Take 3 tabs daily for 3 d ays, 2 tabs daily for 3 days, 1 tab daily for 3 days, 1/2 tab daily for 3 days 11/07 PREDNISONE 20 MG ORAL TABLET 573684 PREDNISONE Inactive LEVAQUIN 500 MG ORAL TABLET take one po QD LEVAQUIN 500 MG ORAL TABLET 382634 LEVOFLOXACIN Inactive AZITHROMYCIN 250 MG ORAL TABLET 2 po qd x 1 day, then 1 po q d x 4 days AZITHROMYCIN 250 MG ORAL TABLET 075000 AZITHROMY GIOVANNI Inactive MEDROL 4 MG ORAL TABLET THERAPY PACK 6 tabs on day 1, 5 tabs on day 2, 4 tabs on day 3, 3 tabs on day 4, 2 tabs on day 5, 1 tab on day 6 2013 MEDROL 4 MG ORAL TABLET THERAPY PACK 203019 METHYLPREDNISOLONE [place] ctive CHERATUSSIN AC 100-10 MG/5ML ORAL SYRUP 5ml po q6hr PRN Cough 20 13/04/14 CHERATUSSIN AC 100-10 MG/5ML ORAL SYRUP 758168 GUAIFENE SIN-CODEINE Inactive TRIAMCINOLONE ACETONIDE 0.1 % EXTERNAL CREAM apply three roger es daily prn rash TRIAMCINOLONE ACETONIDE 0.1 % EXTERNAL CREAM 101 4314 TRIAMCINOLONE ACETONIDE Inactive AZITHROMYCIN 250 MG ORAL TABLET 2 po qd x 1 day, then 1 po q d x 4 days AZITHROMYCIN 250 MG ORAL TABLET 079069 AZITHROMY GIOVANNI Inactive MEDROL 4 MG ORAL TABLET THERAPY PACK 6 pills x 1 day, then 5 pills x 1 day then 4 pills x 1 day, then 3 pills x 1 day, then 2 pills x 1 day, then 1 pill x 1 day, then stop MEDROL 4 MG ORAL TABLET THERAPY PACK 843104 METHYLPREDNISOLONE Inactive AMOXICILLIN 500 MG ORAL CAPSULE 1 tab by mouth 3 times daily x 10 days AMOXICILLIN 500 MG ORAL CAPSULE 285732 AMOXICILL IN Inactive AMOXICILLIN 500 MG ORAL CAPSULE 1 tab by mouth 3 times daily x 10 days AMOXICILLIN 500 MG ORAL CAPSULE 197445 AMOXICILL IN Inactive ZITHROMAX 250 MG ORAL TABLET 2 po today, then 1 po q days 2-5 20 12/08/14 ZITHROMAX 250 MG ORAL TABLET 665206 AZITHROMYCIN Greer ctive AUGMENTIN 875-125 MG ORAL TABLET 1 po BID x 10 days 13/01/20 AUGMENTIN 875-125 MG ORAL TABLET 538916 AMOXICILLIN-POT CLAVULANATE Inactive ZITHROMAX Z-REYNA 250 MG ORAL TABLET 2 today, then 1 daily for 4 d ays ZITHROMAX Z-REYNA 250 MG ORAL TABLET 593470 AZITHROMYCIN Inactive ZITHROMAX 250 MG ORAL TABLET 2 po today, then 1 po q days 2-5 20 14/03/21 ZITHROMAX 250 MG ORAL TABLET 493502 AZITHROMYCIN Greer ctive ZITHROMAX Z-REYNA 250 MG ORAL TABLET 2 today, then 1 daily for 4 d ays ZITHROMAX Z-REYNA 250 MG ORAL TABLET 318519 AZITHROMYCIN Inactive CEFDINIR 300 MG ORAL CAPSULE 1 po BID x 10 days 06/21 CEFDINIR 300 MG ORAL CAPSULE 20020704 CEFDINIR Inactive ZITHROMAX 250 MG ORAL TABLET 2 po today, then 1 po q days 2-5 20 13/08/10 ZITHROMAX 250 MG ORAL TABLET 539245 AZITHROMYCIN [place] ctive LEVAQUIN 500 MG ORAL TABLET 1 tablet by mouth daily 20 13/09/24 LEVAQUIN 500 MG ORAL TABLET 19971102 LEVOFLOXACIN Inactive SINGULAIR 10 MG ORAL TABLET 1 po qday for allergies 20 14/01/12 SINGULAIR 10 MG ORAL TABLET 20010504 MONTELUKAST SODIUM Inactive AMOXICILLIN 500 MG ORAL CAPSULE 2 po BID x 10 days 201 09/29/08 AMOXICILLIN 500 MG ORAL CAPSULE 531634 AMOXICILLIN Inactive PREDNISONE 20 MG ORAL TABLET 2 tabs daily for 3 days, 1 tab daily for 3 days, 1/2 tab daily for 2 days PREDNISONE 20 MG ORAL T ABLET 780306 PREDNISONE Inactive ZITHROMAX Z-REYNA 250 MG ORAL TABLET 2 today, then 1 daily for 4 d ays ZITHROMAX Z-REYNA 250 MG ORAL TABLET 512704 AZITHROMYCIN Inactive PREDNISONE 20 MG ORAL TABLET 2 tabs daily for 3 days, 1 tab daily for 3 days, 1/2 tab daily for 2 days PREDNISONE 20 MG ORAL T ABLET 560303 PREDNISONE Inactive ZITHROMAX 250 MG ORAL TABLET 2 po today, then 1 po q days 2-5 14/09/04 ZITHROMAX 250 MG ORAL TABLET 583844 AZITHROMYCIN Greer ctive AMOXICILLIN 500 MG ORAL CAPSULE 1 cap by mouth three times a day AMOXICILLIN 500 MG ORAL CAPSULE 115631 AMOXICILLIN Inactive TERBINAFINE HCL 250 MG ORAL TABLET 1 qDay for nail fungus 7 TERBINAFINE HCL 250 MG ORAL TABLET 230033 TERBINAFINE HCL Inact nael AUGMENTIN 875-125 MG ORAL TABLET 1 po BID x 10 days 20 16/03/22 AUGMENTIN 875-125 MG ORAL TABLET 250829 AMOXICILLIN-POT CLAVULANATE Inactive Vital Signs Date Name [...] - Chem istry sodium, serum 132 mmol/L 976-574 0112/07/12 potassium, serum 2.7 mmol/L 3.5-5.2 chloride, serum 93 mmol/L 98-107 carbon dioxide, venous blood 30.8 mmol/L 21.0-32 .0 blood glucose 107 mg/dL 65-110 calcium, serum 9.3 mg/dL 8.5-10.1 urea nitrogen, blood 12 mg/dL 7-18 creatinine, serum 1.00 mg/dL 0.60-1.30 sodium, serum 142 mmol/L 182-010 5974/07/17 potassium, serum 4.2 mmol/L 3.5-5.2 chloride, serum 106 mmol/L 98-107 carbon dioxide, venous blood 29.9 mmol/L 21.0-32 .0 blood glucose 108 mg/dL 65-110 calcium, serum 9.1 mg/dL 8.5-10.1 urea nitrogen, blood 11 mg/dL 7-18 creatinine, serum 0.81 mg/dL 0.60-1.30 Lab Report: Rapid Strep - Lab Microbial identification kit, rapid strep method Negative Negative Encounters Code Encounter Date Provider Facility CPT-76084 Level 3 Est. Patient 10:26:00 BABY [employer] RENTAL CLERK Italo KHAN [facility] CPT-78470 Level 3 Est. Patient 13:35:41 [employer]ABY [employer] RENTAL CLERK Carlton rich MD [facility] CPT-82374 Level 3 Est. Patient 10:03:52 [employer]Y [employer] RENTAL CLERK Carlton rich MD [facility] CPT-68551 Level 3 Est. Patient 12:17:50 CDT Hugo Restrepo MD [facility] CPT-68143 Level 3 Est. Patient 13:42:38 CDT [facility] CPT-16640 Level 3 Est. Patient 13:23:51 CDT Diya [facility] CPT-22021 Level 3 Est. Patient 14:22:19 BABY STROLL[employer] RENTAL CLERK Astridgreer Mariana [facility] CPT-04300 Level 3 Est. Patient 10:11:46 CDT Carlton rich MD [facility] CPT-67162 Level 3 Est. Patient 17:29:43 CDT [facility] CPT-50069 Level 3 Est. Patient 11:58:06 CDT [facility] CPT-75803 Level 4 Est. Patient 14:36:51 CDT Carlton rich MD [facility]-04968 Level 3 Est. Patient 18:16:00 BABY STROLLER RENTAL CLERK Blaine HERNANDEZ [facility] CPT-96660 Level 3 Est. Patient 09:45:49 BABY STROLLER RENTAL CLERK Carlton rich MD [facility] CPT-52602 Level 3 Est. Patient 13:19:20 CDT Carlton rich MD [facility] CPT-84044 Level 3 Est. Patient 13:06:43 CDT Ridge tam DO [facility] CPT-51155 Level 3 Est. Patient 10:03:07 CDT Perez Mora MD [facility] CPT-44390 Level 3 Est. Patient 19:50:35 BABY [employer] RENTAL CLERK Carlton rich MD [facility] CPT-28895 Level 4 Est. Patient 18:05:01 BABY STRO[employer] RENTAL CLERK Carlton rich MD [facility] CPT-82299 Level 3 Est. Patient 10:45:55 BABY STROLL[employer] RENTAL CLERK Hugo Restrepo MD [facility] CPT-48350 Level 3 Est. Patient 14:12:49 CDT Griffin HERNNADEZ [facility] CPT-52764 Level 3 Est. Patient 17:37:24 CDT Carlton rich MD [facility] CPT-45966 Level 3 Est. Patient 16:51:54 CDT Carlton rich MD [facility] CPT-74550 Level 3 Est. Patient 12:18:11 CDT Hugo Restrepo MD [facility] CPT-20908 Level 3 Est. Patient 11:30:25 CDT Marcy crisostomo MD PhD [facility] CPT-79345 Level 3 Est. Patient 12:00:47 BABY [employer]OLL[employer] RENTAL CLERK Carlton rich MD [facility] CPT-55177 Level 3 Est. Patient 16:31:06 BABY STROLLER RENTAL CLERK Carlton rich MD [facility] CPT-39237 Level 3 Est. Patient 16:23:24 BABY STROLLER RENTAL CLERK Ridge tam DO [facility] CPT-68470 Level 3 Est. Patient 12:34:12 CDT Carlton rich MD [facility] CPT-32852 Level 2 Est. Patient 15:43:33 CDT Robi armstrong MD [facility] CPT-18860 Level 4 Est. Patient 14:04:44 CDT Carlton rich MD [facility] CPT-93766 Level 3 Est. Patient 05:47:59 CDT Ridge tam [facility] CPT-38460 Level 3 Est. Patient 13:12:53 BABY [employer] RENTAL CLERK Carlton rich MD [facility] CPT-09015 Level 3 Est. Patient 14:26:53 CDT Hugo [...] CPT-J1100 Decadron 6mg (Dexamethasone) 14:32:13 CDT 2 CPT-31501 Hip bilat min 2V w AP pelvis 13:16:20 CDT 2 CPT-08151 Pelvis only 13:07:33 CDT CPT-96150 Spec Collection and Handling Fee 11:25:12 C DT CPT-73572 Fluzone Quadrivalent Intramuscular Suspe nsion 0.5 ML 14:31:55 CDT CPT-57813 Abx/Therapy Injection 13:28:47 BABY STRO[employer] RENTAL CLERK CPT-J2930 Solu Medrol 125 mg (Methyl Prednisolone Sodium Succinate) 12:00:47 BABY STROLLER RENTAL CLERK CPT-88804 Venipuncture Draw Fee 11:33:31 CDT CPT-89549 EKG Trac and Interp 11:21:09 CDT CPT-20924 Chest 2V Frontal and Lat 11:21:09 CDT 12/15 CPT-34450 Venipuncture Draw Fee 08:02:34 CDT CPT-46004 Chest 2V Frontal and Lat 05:47:59 CDT 06/05
--- OUTSIDE RECORDS SUMMARY | 2019-10-08 09:47 | XMS REPORT | Clinical Summary ---
Author Author Caitlin, Juliana Martinez Organization [facility] Address Unknown Phone Unavailable Allergies, [...] times daily for 7 days POTASSIUM CHLORIDE 44601234051 Active Columba Raida Active TUSSIONEX PENNKINETIC ER 10-8 MG/5ML LQCR 5ml po q12hr PRN Cough 20 14/09/04 HYDROCOD POLST-CHLORPHEN POLST 14181256551 Active Elise Whitmore APRN Active ZITHROMAX 250 MG TAB 2 po today, then 1 po q days 2-5 AZITHROMYCIN 68128090685 No Longer Active Elise Whitmore APRN Acti ve TUSSIONEX PENNKINETIC ER 10-8 MG/5ML LQCR 5 ml twice a day a s needed for cough HYDROCOD POLST-CHLORPHEN POLST 48372355917 N o Longer Active Elise Whitmore APRN Active MONTELUKAST SODIUM 10 MG ORAL TABS 1 po daily for Allergy 6 MONTELUKAST SODIUM 36626062405 Active Carlton Hu MD Ac tive TUSSIONEX PENNKINETIC ER 10-8 MG/5ML LQCR 5ml po q12hr PRN Cough HYDROCOD POLST-CHLORPHEN POLST 90254536449 No Longer Active Hugo Restrepo MD Active GABAPENTIN 100 MG CAPS 1 po BID for fibromyalgia GABAPENTIN 18981109813 Active Elise Whitmroe APRN Active LYRICA 100 MG CAPS Take 1 tab po BID for fibromyalgia PREGABALIN 90528180558 No Longer Active Elise Whitmore APRN Acti ve PROAIR HFA 108 (90 BASE) MCG/ACT AERS 2 puffs four times a d ay as needed ALBUTEROL SULFATE 64491745968 Active Elise Whitmore APRN Active MUCINEX DM MAXIMUM STRENGTH 60-1200 MG [id number] 1 tab po q am 2016 DEXTROMETHORPHAN-GUAIFENESIN 61116173692 Active Jillina Frazell VASC TECH Active PREDNISONE 20 MG TAB 2 tabs daily for 3 days, 1 t ab daily for 3 days, 1/2 tab daily for 2 days PREDNISONE 48015635469 No Longer Active Jillina Frazell VASC TECH Active TUSSIONEX PENNKINETIC ER 10-8 MG/5ML ORAL LQCR 5 mL PO q 12 hrs PRN cough HYDROCOD POLST-CHLORPHEN POLST 67160766919 No Longer Active Jillina Frazell VASC TECH Active FLUTICASONE PROPIONATE 50 MCG/ACT SUSP 2 sprays each n ostril daily until bottle is empty FLUTICASONE PROPIONATE 09621860072 No Longer Ac tive Jillina Frazell VASC TECH Active ASMANEX 60 METERED DOSES 220 MCG/INH AEPB 1 puff bid with ri nse after MOMETASONE FUROATE 58570567132 No Longer Active Diya meneses VASC TECH Active ZITHROMAX Z-REYNA 250 MG TABS 2 today, then 1 daily for 4 days 201 09/29/14 AZITHROMYCIN 19340983436 No Longer Active Elise Whitmore VASC TECH Active TUSSIONEX PENNKINETIC ER 10-8 MG/5ML LQCR 5ml po q12hr PRN Cough HYDROCOD POLST-CHLORPHEN POLST 76335325099 No Longer Active Elise Whitmore VASC TECH Active MUCINEX D 60-600 MG [id number] 1 tab po q am PSEUDOEPHEDRINE-GUAIFENESIN 30087903933 Active Diya De Guzman VASC TECH Active PREDNISONE 20 MG TAB 2 tabs daily for 3 days, 1 t ab daily for 3 days, 1/2 tab daily for 2 days PREDNISONE 79405004449 No Longer Active Diya De Guzman VASC TECH Active AMOXICILLIN 500 MG CAPS 2 po BID x 10 days AMOX ICILLIN 20545936745 No Longer Active Diya De Guzman VASC TECH Active SINGULAIR 10 MG TABS 1 po qday for allergies 2 MONTELUKAST SODIUM 03644808376 No Longer Active Carlton Hu MD Acti ve LEVAQUIN 500 MG TAB 1 tablet by mouth daily LEV OFLOXACIN 90483821878 No Longer Active Carlton Hu MD Active FLUTICASONE PROPIONATE 50 MCG/ACT SUSP 2 sprays each n ostril daily for 2 weeks, then 1 spray each nostril daily. FLUTICASONE PRO PIONATE 21108114620 Active Elise Whitmore APRN Active ZITHROMAX 250 MG TAB 2 po today, then 1 po q days 2-5 AZITHROMYCIN 71161137811 No Longer Active Elise Whitmore APRN Acti ve XANAX 0.5 MG TABS one tablet by mouth daily prn anxiety ALPRAZOLAM 35106141425 Active Elise Whitmore APRN Active CYMBALTA 30 MG CPEP 1 cap by mouth daily for depression DULOXETINE HCL 91006669787 Active Carlton Hu MD Active CEFDINIR 300 MG CAPS 1 po BID x 10 days CEFDINI R 97148544808 No Longer Active Carlton Hu MD Active ZOCOR 40 MG TAB 1 tab by mouth daily SIMVASTATI N 98574491029 No Longer Active Carlton Hu MD Active CYCLOBENZAPRINE HCL 10 MG TABS 1 tablet by mouth BID prn had cherelle n CYCLOBENZAPRINE HCL 73142431339 No Longer Active Carlton Hu MD Active LEVOFLOXACIN 500 MG ORAL TABS 1 tab PO daily x 10 days LEVOFLOXACIN 24934735355 No Longer Active Carlton Hu MD Acti ve PREDNISONE 20 MG ORAL TABS 3 tab PO qd x 2d, 2 tab PO qd x 2d, 1 tab PO qd x 2d, 1/2 tab PO qd x 2d PREDNISONE 01661771380 No Longer Active Carlton Hu MD Active FLUTICASONE PROPIONATE 50 MCG/ACT SUSP 1 to 2 sprays each no stril daily FLUTICASONE PROPIONATE 62365765522 No Longer Active T jaz HERNANDEZ Active CHERATUSSIN AC 100-10 MG/5ML SYRP 1 tsp by mouth every 4 hours as needed for cough GUAIFENESIN-CODEINE 68205714071 No Longer Activ e Blaine HERNANDEZ Active PROMETHAZINE-CODEINE 6.25-10 MG/5ML SYRP 1 tsp by mout h every 6 hours if needed for cough PROMETHAZINE-CODEINE 27940676974 No Long er Active Blaine HERNANDEZ Active CHERATUSSIN AC 100-10 MG/5ML SYRP 1 tsp by mouth every 4 hours as needed for cough GUAIFENESIN-CODEINE 38978491796 No Longer Activ e Blaine HERNANDEZ Active ZITHROMAX Z-REYNA 250 MG TABS 2 today, then 1 daily for 4 days 201 08/30/03 AZITHROMYCIN 69361350875 No Longer Active Columba Raida Act nael ZITHROMAX 250 MG TAB 2 po today, then 1 po q days 2-5 AZITHROMYCIN 56734510462 No Longer Active Carlton Hu MD Acti ve ZITHROMAX Z-REYNA 250 MG TABS 2 today, then 1 daily for 4 days 201 08/07/20 AZITHROMYCIN 44565656630 No Longer Active Columba Raida Act nael AUGMENTIN 875-125 MG TAB 1 po BID x 10 days AMOXICILLIN- POT CLAVULANATE 42905819877 No Longer Active Jillshakira Sernazell VASC TECH Active ZITHROMAX 250 MG TAB 2 po today, then 1 po q days 2-5 AZITHROMYCIN 68220301733 No Longer Active Carlton Hu MD Acti ve TRAMADOL HCL 50 MG TABS 1 po tid with ES Tylenol TRAMADOL HCL 27571930933 Active Carlton Hu MD Active PREMARIN 0.625 MG TABS TAKE 1 TAB BY MOUTH DAILY 07/25 ESTROGENS CONJUGATED 09155401522 No Longer Active Ridge Bess DO Active CYMBALTA 30 MG CPEP 1 cap by mouth daily DULOXE SNEHA HCL 55393030800 No Longer Active Ridge Bess DO Active AMOXICILLIN 500 MG CAP 1 tab by mouth 3 times daily x 10 days 20 14/04/28 AMOXICILLIN 94785586080 No Longer Active Carlton Hu MD Active AMOXICILLIN 500 MG CAP 1 tab by mouth 3 times daily x 10 days 20 13/03/08 AMOXICILLIN 74087073252 No Longer Active Carlton Hu MD Active PROMETHAZINE-CODEINE 6.25-10 MG/5ML SYRP 1 tsp by mouth ever y 8 hours prn cough PROMETHAZINE-CODEINE 82752910982 No Longer Active Robert Hu MD Active MEDROL (REYNA) 4 MG TABS 6 pills x 1 day, then 5 pill s x 1 day then 4 pills x 1 day, then 3 pills x 1 day, then 2 pills x 1 day, then 1 pill x 1 day, then stop METHYLPREDNISOLONE 83286264851 No Longer Active Parris Mora MD Active AZITHROMYCIN 250 MG TABS 2 po qd x 1 day, then 1 po qd x 4 days AZITHROMYCIN 83181405204 No Longer Active Perez Mora MD Active SYMBICORT 160-4.5 MCG/ACT AERO 2 puffs bid with rinse after 2011 BUDESONIDE-FORMOTEROL FUMARATE 00465141601 No Longer Active Perez Mora MD Active LYRICA 75 MG CAPS TAKE 1 CAPSULE BY MOUTH TWICE DAILY 2013 PREGABALIN 43063839289 No Longer Active Carlton Hu MD Active TOPAMAX 25 MG TABS 1 qHS x 1 week, then 1 BID x 1 week, then 1 qAM and 2 qHS x 1 week, then 2 BID (migraine prevention) TOPIRAMAT E 59934211491 No Longer Active Jerica FUENTES Active TOPAMAX 50 MG TABS take 1 tab po BID for migraines. 12/07/10 TOPIRAMATE 29368824445 No Longer Active Jerica FUENTES Ac tive TOPAMAX 100 MG TABS Take 1 tablet po bid TOPIRAMATE 4999 1668454 Active Elise Whitmore VASC TECH Active TRIAMCINOLONE ACETONIDE 0.1 % CREA apply three times daily prn r beatrice TRIAMCINOLONE ACETONIDE 08271336286 No Longer Active Carlton Hu MD Active PAXIL 40 MG TAB take 1 tab po qday for depression PAROXETINE HCL 02608605730 Active Carlton Hu MD Active CHERATUSSIN AC 100-10 MG/5ML SYRP 5ml po q6hr PRN Cough GUAIFENESIN-CODEINE 03183300516 No Longer Active Carlton Hu MD Active MEDROL (REYNA) 4 MG TABS 6 tabs on day 1, 5 tabs on d ay 2, 4 tabs on day 3, 3 tabs on day 4, 2 tabs on day 5, 1 tab on day 6 METHYLPREDNISOLONE 07226048091 No Longer Active Perez Mora MD Active AZITHROMYCIN 250 MG TABS 2 po qd x 1 day, then 1 po qd x 4 days AZITHROMYCIN 36108642818 No Longer Active Perez Mora MD Active PROPRANOLOL HCL 60 MG TABS 1 PO Q D PROPRANOL OL HCL 53547309398 No Longer Active Perez Mora MD Active CHERATUSSIN AC 100-10 MG/5ML SYRP take one tsp po Q 6hours prn c ough GUAIFENESIN-CODEINE 78827381633 No Longer Active Perez Maens Active AUGMENTIN 875-125 MG TAB 1 tab by mouth twice daily with food 20 12/03/31 AMOXICILLIN-POT CLAVULANATE 82086311861 No Longer Active Chanel Moar MD Active CHERATUSSIN AC 100-10 MG/5ML SYRP 1 tsp by mouth every 4 hours as needed for cough GUAIFENESIN-CODEINE 45471158548 No Longer Activ e Hugo Restrepo MD Active ACETAMINOPHEN-CODEINE #3 300-30 MG TABS 1 PO Q 4-6 HRS PRN PAIN ACETAMINOPHEN-CODEINE 22914702980 No Longer Active Hugo Restrepo MD Active LEVAQUIN 500 MG TABS take one po QD LEVOFLOXACI N 75572104308 No Longer Active Griffin HERNANDEZ Active PREDNISONE 20 MG TAB Take 3 tabs daily for 3 days , 2 tabs daily for 3 days, 1 tab daily for 3 days, 1/2 tab daily for 3 days P REDNISONE 92541065384 No Longer Active Carlton Hu MD Active AVELOX 400 MG TABS 1 tab by mouth daily MOXIFLO XACIN HCL 42156311172 No Longer Active Carlton Hu MD Active CHERATUSSIN AC 100-10 MG/5ML SYRP 1 tsp by mouth every 4 hours as needed for cough GUAIFENESIN-CODEINE 70387530811 No Longer Activ e Hugo Restrepo MD Active AVELOX 400 MG TABS 1 tab by mouth daily MOXIFLO XACIN HCL 61505266677 No Longer Active Marcy De La Rosa MD PhD Active TERBINAFINE HCL 250 MG TABS 1 qDay TERBINAF INE HCL 73341200578 No Longer Active Marcy De La Rosa MD PhD Active CHERATUSSIN AC 100-10 MG/5ML SYRP 1 tsp by mouth every 4 hours as needed for cough GUAIFENESIN-CODEINE 97727817844 No Longer Activ e Marcy De La Rosa MD PhD Active AVELOX 400 MG TABS 1 tab by mouth daily MOXIFLO XACIN HCL 04793719617 No Longer Active Marcy De La Rosa MD PhD Active HYDROCODONE-ACETAMINOPHEN 5-325 MG TABS 1 po q 6hr PRN cough 201 05/09/16 HYDROCODONE-ACETAMINOPHEN 39386304526 No Longer Active Marcy De La Rosa MD PhD Active PREDNISONE 20 MG TAB 2 tabs daily for 3 days, 1 t ab daily for 3 days, 1/2 tab daily for 2 days PREDNISONE 30405085129 No Longer Active Carlton Hu MD Active CEFDINIR 300 MG CAPS by mouth twice a day CEFDI ODILIA 19789982898 No Longer Active Carlton Hu MD Active HYDROCHLOROTHIAZIDE 25 MG TABS 1 TAB PO DAILY H YDROCHLOROTHIAZIDE 22749935709 Active Carlton Hu MD Active ACETAMINOPHEN-CODEINE #3 300-30 MG TABS 1 tablet po q 4-6hrs prn pain ACETAMINOPHEN-CODEINE 65618986062 No Longer Active Ridge Bess DO Active ZITHROMAX 250 MG TAB 2 po today, then 1 po q days 2-5 AZITHROMYCIN 53940202801 No Longer Active Carlton Hu MD Acti ve CHERATUSSIN AC 100-10 MG/5ML SYRP take 1 tsp po q4-6 hours prn c ough GUAIFENESIN-CODEINE 84453711077 No Longer Active Carlton Hu MD Active ACETAMINOPHEN-CODEINE #3 300-30 MG TABS 1 PO Q 4-6 HR PRN PAIN 2 ACETAMINOPHEN-CODEINE 58273864432 No Longer Active Carlton rich MD Active LORTAB 7.5-500 MG/15ML ELIX 7.5 ml po q 4 hour prn cough HYDROCODONE-ACETAMINOPHEN 93129175175 No Longer Active Carlton Hu MD Active PREDNISONE 20 MG TAB 1 po bid 3 days, then 1 po q day 3 days 201 05/03/07 PREDNISONE 86341799675 No Longer Active Carlton Hu MD Active ELMIRON 100 MG CAPS 2 tablets in the am and 1 tablet at hs PENTOSAN POLYSULFATE SODIUM 12650341551 Active Carlton Hu MD Ac tive CEFDINIR 300 MG CAPS by mouth twice a day CEFDI ODILIA 95076839268 No Longer Active Carlton Hu MD Active CEFDINIR 300 MG CAPS by mouth twice a day CEFDI ODILIA 25237117455 No Longer Active Carlton Hu MD Active CEFDINIR 300 MG CAPS by mouth twice a day CEFDI ODILIA 61679792955 No Longer Active Carlton Hu MD Active TESSALON PERLES 100 MG CAP 1 tablet by mouth 3 times daily a s needed for cough BENZONATATE 54772193759 No Longer Active Carlton bustamante MD Active CEFDINIR 300 MG CAPS by mouth twice a day CEFDI ODILIA 88558147870 No Longer Active Carlton Hu MD Active ZITHROMAX Z-REYNA 250 MG TABS 2 today, then 1 daily for 4 days 201 04/09/17 AZITHROMYCIN 32025709242 No Longer Active Hugo Restrepo MD Active TESSALON PERLES 100 MG CAP 1 tablet by mouth 3 times daily a s needed for cough TESSALON PERLES 100 MG CAP 080978 BENZONATATE I nactive PREDNISONE 20 MG TAB 1 po bid 3 days, then 1 po q day 3 days 201 05/03/07 PREDNISONE 20 MG TAB 378717 PREDNISONE Inactive LORTAB 7.5-500 MG/15ML ELIX 7.5 ml po q 4 hour prn cough LORTAB 7.5-500 MG/15ML ELIX HYDROCODONE-ACETAMINOPHEN Inacti ve ACETAMINOPHEN-CODEINE #3 300-30 MG TABS 1 PO Q 4-6 HR PRN PAIN 2 ACETAMINOPHEN-CODEINE #3 300-30 MG TABS ACETAMIN OPHEN-CODEINE Inactive CHERATUSSIN AC 100-10 MG/5ML SYRP take 1 tsp po q4-6 hours prn c ough CHERATUSSIN AC 100-10 MG/5ML SYRP 672371 GUAIFENESIN-CO DEINE Inactive ACETAMINOPHEN-CODEINE #3 300-30 MG TABS 1 tablet po q 4-6hrs prn pain ACETAMINOPHEN-CODEINE #3 300-30 MG TABS ACETAMIN OPHEN-CODEINE Inactive HYDROCODONE-ACETAMINOPHEN 5-325 MG TABS 1 po q 6hr PRN cough 201 05/09/16 HYDROCODONE-ACETAMINOPHEN 5-325 MG TABS 119499 HYDROCODONE-ACETAMINOPHEN Inactive AVELOX 400 MG TABS 1 tab by mouth daily A VELOX 400 MG TABS 337562 MOXIFLOXACIN HCL Inactive CHERATUSSIN AC 100-10 MG/5ML SYRP 1 tsp by mouth every 4 hours as needed for cough CHERATUSSIN AC 100-10 MG/5ML SYRP 090709 GUAIFENESIN-CODEINE Inactive TERBINAFINE HCL 250 MG TABS 1 qDay TERBINAFINE HCL 250 MG TABS 527635 TERBINAFINE HCL Inactive CHERATUSSIN AC 100-10 MG/5ML SYRP 1 tsp by mouth every 4 hours as needed for cough CHERATUSSIN AC 100-10 MG/5ML SYRP 333622 GUAIFENESIN-CODEINE Inactive ACETAMINOPHEN-CODEINE #3 300-30 MG TABS 1 PO Q 4-6 HRS PRN PAIN ACETAMINOPHEN-CODEINE #3 300-30 MG TABS ACETAMINOPHEN-CODEIN E Inactive CHERATUSSIN AC 100-10 MG/5ML SYRP 1 tsp by mouth every 4 hours as needed for cough CHERATUSSIN AC 100-10 MG/5ML SYRP 447656 GUAIFENESIN-CODEINE Inactive AUGMENTIN 875-125 MG TAB 1 tab by mouth twice daily with food 20 12/03/31 AUGMENTIN 875-125 MG TAB 045762 AMOXICILLIN-POT CLAVULA EFE Inactive CHERATUSSIN AC 100-10 MG/5ML SYRP take one tsp po Q 6hours prn c ough CHERATUSSIN AC 100-10 MG/5ML SYRP 734027 GUAIFENESIN-CO DEINE Inactive PROPRANOLOL HCL 60 MG TABS 1 PO Q D P ROPRANOLOL HCL 60 MG TABS 832655 PROPRANOLOL HCL Inactive TOPAMAX 50 MG TABS take 1 tab po BID for migraines. 12/07/10 TOPAMAX 50 MG TABS 977247 TOPIRAMATE Inactive TOPAMAX 25 MG TABS 1 qHS x 1 week, then 1 BID x 1 week, then 1 qAM and 2 qHS x 1 week, then 2 BID (migraine prevention) TOPAMAX 2 5 MG TABS 202661 TOPIRAMATE Inactive LYRICA 75 MG CAPS TAKE 1 CAPSULE BY MOUTH TWICE DAILY LYRICA 75 MG CAPS PREGABALIN Inactive SYMBICORT 160-4.5 MCG/ACT AERO 2 puffs bid with rinse after 2011 SYMBICORT 160-4.5 MCG/ACT AERO BUDESONIDE-FORMOT SÁNCHEZ FUMARATE Inactive PROMETHAZINE-CODEINE 6.25-10 MG/5ML SYRP 1 tsp by mouth ever y 8 hours prn cough PROMETHAZINE-CODEINE 6.25-10 MG/5ML SYRP 636314 PROMETHAZINE-CODEINE Inactive CYMBALTA 30 MG CPEP 1 cap by mouth daily CYMBALTA 30 MG CPEP 382507 DULOXETINE HCL Inactive PREMARIN 0.625 MG TABS TAKE 1 TAB BY MOUTH DAILY 07/25 PREMARIN 0.625 MG TABS ESTROGENS CONJUGATED Inactive CHERATUSSIN AC 100-10 MG/5ML SYRP 1 tsp by mouth every 4 hours as needed for cough CHERATUSSIN AC 100-10 MG/5ML SYRP 983690 GUAIFENESIN-CODEINE Inactive PROMETHAZINE-CODEINE 6.25-10 MG/5ML SYRP 1 tsp by mout h every 6 hours if needed for cough PROMETHAZINE-CODEINE 6.25-10 MG/5ML SYRP 381095 PROMETHAZINE-CODEINE Inactive CHERATUSSIN AC 100-10 MG/5ML SYRP 1 tsp by mouth every 4 hours as needed for cough CHERATUSSIN AC 100-10 MG/5ML SYRP 810072 GUAIFENESIN-CODEINE Inactive FLUTICASONE PROPIONATE 50 MCG/ACT SUSP 1 to 2 sprays each no stril daily FLUTICASONE PROPIONATE 50 MCG/ACT SUSP 1040237 FLUTICASONE PROPIONATE Inactive PREDNISONE 20 MG ORAL TABS 3 tab PO qd x 2d, 2 tab PO qd x 2d, 1 tab PO qd x 2d, 1/2 tab PO qd x 2d PREDNISONE 20 MG ORAL TABS 357117 PREDNISONE Inactive LEVOFLOXACIN 500 MG ORAL TABS 1 tab PO daily x 10 days LEVOFLOXACIN 500 MG ORAL TABS 720607 LEVOFLOXACIN Inactive CYCLOBENZAPRINE HCL 10 MG TABS 1 tablet by mouth BID prn had cherelle n CYCLOBENZAPRINE HCL 10 MG TABS 408638 CYCLOBENZAPRINE H CL Inactive ZOCOR 40 MG TAB 1 tab by mouth daily ZOCOR 40 M G TAB 386436 SIMVASTATIN Inactive TUSSIONEX PENNKINETIC ER 10-8 MG/5ML [...] empty FLUTICASONE PROPIONATE 50 MCG/ACT SUSP 17 26206 FLUTICASONE PROPIONATE Inactive TUSSIONEX PENNKINETIC ER 10-8 [...] 201 04/09/17 ZITHROMAX Z-REYNA 250 MG TABS 1903983 AZITHROMYCIN Inac tive CEFDINIR 300 MG CAPS [...] q days 2-5 ZITHROMAX 250 MG TAB 3138547 AZITHROMYCIN Inactive CEFDINIR 300 MG CAPS by mouth twice a day CEFDINIR 300 MG CAPS 20020704 CEFDINIR Inactive PREDNISONE 20 MG TAB 2 tabs daily for 3 days, 1 t ab daily for 3 days, 1/2 tab daily for 2 days PREDNISONE 20 MG TAB 829437 PREDNISON E Inactive AVELOX 400 MG TABS 1 tab by mouth daily A VELOX 400 MG TABS 854941 MOXIFLOXACIN HCL Inactive AVELOX 400 MG TABS 1 tab by mouth daily A VELOX 400 MG TABS 707493 MOXIFLOXACIN HCL Inactive PREDNISONE 20 MG TAB Take 3 tabs daily for 3 days , 2 tabs daily for 3 days, 1 tab daily for 3 days, 1/2 tab daily for 3 days PREDNISONE 20 MG TAB 424902 PREDNISONE Inactive LEVAQUIN 500 MG TABS take one po QD LEVAQUIN 50 0 MG TABS 109694 LEVOFLOXACIN Inactive AZITHROMYCIN 250 MG TABS 2 po qd x 1 day, then 1 po qd x 4 days AZITHROMYCIN 250 MG TABS 2822280 AZITHROMYCIN Inactiv e MEDROL (REYNA) 4 MG TABS 6 tabs on day 1, 5 tabs on d ay 2, 4 tabs on day 3, 3 tabs on day 4, 2 tabs on day 5, 1 tab on day 6 MEDROL (RYENA) 4 MG TABS 056950 METHYLPREDNISOLONE Inactive CHERATUSSIN AC 100-10 MG/5ML SYRP 5ml po q6hr PRN Cough CHERATUSSIN AC 100-10 MG/5ML SYRP 085411 GUAIFENESIN-CODEINE Inacti ve TRIAMCINOLONE ACETONIDE 0.1 % CREA apply three times daily prn r beatrice TRIAMCINOLONE ACETONIDE 0.1 % CREA 0982920 TRIAMCINOLONE ACETONIDE Inactive AZITHROMYCIN 250 MG TABS 2 po qd x 1 day, then 1 po qd x 4 days AZITHROMYCIN 250 MG TABS 8289097 AZITHROMYCIN Inactiv e MEDROL (REYNA) 4 MG TABS 6 pills x 1 day, then 5 pill s x 1 day then 4 pills x 1 day, then 3 pills x 1 day, then 2 pills x 1 day, then 1 pill x 1 day, then stop MEDROL (REYNA) 4 MG TABS 481645 METHYLPREDNISOLONE Inactive AMOXICILLIN 500 MG CAP 1 tab by mouth 3 times daily x 10 days 20 13/03/08 AMOXICILLIN 500 MG CAP 879820 AMOXICILLIN Inactive AMOXICILLIN 500 MG CAP 1 tab by mouth 3 times daily x 10 days 20 14/04/28 AMOXICILLIN 500 MG CAP 982804 AMOXICILLIN Inactive ZITHROMAX 250 MG TAB 2 po today, then 1 po q days 2-5 ZITHROMAX 250 MG TAB 5323686 AZITHROMYCIN Inactive AUGMENTIN 875-125 MG TAB 1 po BID x 10 days AUGMENTIN 875- 125 MG TAB 039948 AMOXICILLIN-POT CLAVULANATE Inactive ZITHROMAX Z-REYNA 250 MG TABS 2 today, then 1 daily for 4 days 201 08/07/20 ZITHROMAX Z-REYNA 250 MG TABS 5034584 AZITHROMYCIN Inac tive ZITHROMAX 250 MG TAB 2 po today, then 1 po q days 2-5 ZITHROMAX 250 MG TAB 2464903 AZITHROMYCIN Inactive ZITHROMAX Z-REYNA 250 MG TABS 2 today, then 1 daily for 4 days 201 08/30/03 ZITHROMAX Z-REYNA 250 MG TABS 9033676 AZITHROMYCIN Inac tive CEFDINIR 300 MG CAPS 1 po BID x 10 days C EFDINIR 300 MG CAPS 20020704 CEFDINIR Inactive ZITHROMAX 250 MG TAB 2 po today, then 1 po q days 2-5 ZITHROMAX 250 MG TAB 5395425 AZITHROMYCIN Inactive LEVAQUIN 500 MG TAB 1 tablet by mouth daily LEVAQUIN 500 MG TAB 096255 LEVOFLOXACIN Inactive SINGULAIR 10 MG TABS 1 po qday for allergies 2 SINGULAIR 10 MG TABS 032147 MONTELUKAST SODIUM Inactive AMOXICILLIN 500 MG CAPS 2 po BID x 10 days AMOXICILLIN 500 MG CAPS 242220 AMOXICILLIN Inactive PREDNISONE 20 MG TAB 2 tabs daily for 3 days, 1 t ab daily for 3 days, 1/2 tab daily for 2 days PREDNISONE 20 MG TAB 950538 PREDNISON E Inactive ZITHROMAX Z-REYAN 250 MG TABS 2 today, then 1 daily for 4 days 201 09/29/14 ZITHROMAX Z-REYNA 250 MG TABS 3402999 AZITHROMYCIN Inac tive PREDNISONE 20 MG TAB 2 tabs daily for 3 days, 1 t ab daily for 3 days, 1/2 tab daily for 2 days PREDNISONE 20 MG TAB 702447 PREDNISON E Inactive ZITHROMAX 250 MG TAB 2 po today, then 1 po q days 2-5 ZITHROMAX 250 MG TAB 8505519 AZITHROMYCIN Inactive Vital Signs Date Name Value [...] - Chem istry sodium, serum 132 mmol/L 857-104 8936/07/12 potassium, serum 2.7 mmol/L 3.5-5.2 chloride, serum 93 mmol/L 98-107 carbon dioxide, venous blood 30.8 mmol/L 21.0-32 .0 blood glucose 107 mg/dL 65-110 calcium, serum 9.3 mg/dL 8.5-10.1 urea nitrogen, blood 12 mg/dL 7-18 creatinine, serum 1.00 mg/dL 0.60-1.30 sodium, serum 142 mmol/L 209-113 5389/07/17 potassium, serum 4.2 mmol/L 3.5-5.2 chloride, serum 106 mmol/L 98-107 carbon dioxide, venous blood 29.9 mmol/L 21.0-32 .0 blood glucose 108 mg/dL 65-110 calcium, serum 9.1 mg/dL 8.5-10.1 urea nitrogen, blood 11 mg/dL 7-18 creatinine, serum 0.81 mg/dL 0.60-1.30 Lab Report: Rapid Strep - Lab Microbial identification kit, rapid strep method Negative Negative Encounters Code Encounter Date Provider Facility CPT-31686 Level 3 Est. Patient 12:17:50 CDT Hugo Restrepo MD [facility] CPT-79432 Level 3 Est. Patient 13:42:38 CDT Italo [facility] CPT-40792 Level 3 Est. Patient 13:23:51 CDT Diya cobian [facility] CPT-60462 Level 3 Est. Patient 14:22:19 [employer] Diya cobian [facility] CPT-00806 Level 3 Est. Patient 10:11:46 CDT Carlton rich MD [facility] CPT-90686 Level 3 Est. Patient 17:29:43 CDT Italo [facility] CPT-47050 Level 3 Est. Patient 11:58:06 CDT Italo [facility] CPT-48702 Level 4 Est. Patient 14:36:51 CDT Carlton rich MD [facility]-77758 Level 3 Est. Patient 18:16:00 [employer]ER Blaine [facility]-16428 Level 3 Est. Patient 09:45:49 [employer] AND [employer] Carlton rich MD [facility]-16224 Level 3 Est. Patient 13:19:20 CDT Carlton rich MD [facility]-32501 Level 3 Est. Patient 13:06:43 CDT Ridge tam DO [facility]-63549 Level 3 Est. Patient 10:03:07 CDT Perez Mora MD [facility]-23207 Level 3 Est. Patient 19:50:35 [employer] Carlton rich MD [facility]-66145 Level 4 Est. Patient 18:05:01 [employer] Carlton rich MD [facility]-22533 Level 3 Est. Patient 10:45:55 [employer] Hugo Restrepo MD [facility]-18682 Level 3 Est. Patient 14:12:49 CDT Griffin lincoln [facility]-78167 Level 3 Est. Patient 17:37:24 CDT Carlton rich MD [facility]-75222 Level 3 Est. Patient 16:51:54 CDT Carlton rich MD [facility]-99370 Level 3 Est. Patient 12:18:11 CDT Hugo Restrepo MD [facility]-01292 Level 3 Est. Patient 11:30:25 CDT Marcy crisostomo MD, PhD [facility]-06848 Level 3 Est. Patient 12:00:47 [employer] Carlton rich MD [facility] CPT-25495 Level 3 Est. Patient 16:31:06 [employer] Carlton rich MD [facility] CPT-72213 Level 3 Est. Patient 16:23:24 [employer] AND [employer] Ridge tam [facility] CPT-69427 Level 3 Est. Patient 12:34:12 CDT Carlton rich MD [facility] CPT-07095 Level 2 Est. Patient 15:43:33 CDT Robi armstrong MD [facility] CPT-15558 Level 4 Est. Patient 14:04:44 CDT Carlton rich MD [facility] CPT-11870 Level 3 Est. Patient 05:47:59 CDT Ridge tam [facility] CPT-10281 Level 3 Est. Patient 13:12:53 [employer] Carlton rich MD [facility] CPT-57060 Level 3 Est. Patient 14:26:53 CDT Hugo Restrepo MD [facility] Procedures Code Procedure Name Date Entry Date Standard Desc ription CPT-J1040 Depo Medrol 80 mg (Methyl Prednisolone A cetate) 10:42:44 CDT CPT-J1100 Decadron 8mg (Dexamethasone) 10:42:44 CDT 2 CPT-J0696 Rocephin 1gm Inj Solr 14:32:13 CDT CPT-J1020 Depo Medrol 60 mg (Methyl Prednisolone A cetate) 14:32:13 CDT CPT-J1100 Decadron 6mg (Dexamethasone) 14:32:13 CDT 2 CPT-11814 Hip bilat min 2V w AP pelvis 13:16:20 CDT 2 CPT-07807 Pelvis only 13:07:33 CDT CPT-27200 Spec Collection and Handling Fee 11:25:12 C DT CPT-39237 Fluzone Quadrivalent Intramuscular Suspe nsion 0.5 ML 14:31:55 CDT CPT-52875 Abx/Therapy Injection 13:28:47 [employer] CPT-J2930 Solu Medrol 125 mg (Methyl Prednisolone Sodium Succinate) 12:00:47 [employer] CPT-55981 Venipuncture Draw Fee 11:33:31 CDT CPT-38245 EKG Trac and Interp 11:21:09 CDT CPT-26009 Chest 2V Frontal and Lat 11:21:09 CDT 12/15 CPT-89831 Venipuncture Draw Fee 08:02:34 CDT CPT-55829 Chest 2V Frontal and Lat 05:47:59 CDT 06/05
--- OUTSIDE RECORDS SUMMARY | 2019-10-08 09:48 | XMS REPORT | Clinical Summary ---
[...] po qd x 5 days P REDNISONE [id number] No Longer Active Perez Mora MD Active PROAIR HFA 108 (90 BASE) MCG/ACT INHALATION AEROSOL SO LUTION 2 puffs four times a day as needed ALBUTEROL SULFATE 30608807028 No Long er Active Becky FUENTES Active ASPIRIN 81 MG ORAL TABLET 1 po qd ASPIRIN 29139758552 Active Carlton Hu MD Active PREDNISONE 20 MG ORAL TABLET 1 tab twice daily for 3 d ay, then one daily for three days PREDNISONE 74440794054 No Longer Active Carlton Hu MD Active AUGMENTIN 875-125 MG ORAL TABLET 1 po BID x 10 days 20 16/03/22 AMOXICILLIN-POT CLAVULANATE 12317686696 No Longer Active Elise Garcia APRN Active TERBINAFINE HCL 250 MG ORAL TABLET 1 qDay for nail fungus 7 TERBINAFINE HCL 87208570549 No Longer Active Carlton Hu MD A ctive TUSSIONEX PENNKINETIC ER 10-8 MG/5ML ORAL SUSPENSION E XTENDED RELEASE 5ml po q12hr PRN Cough HYDROCOD POLST-CHLORPHEN POLST 01400406032 Active Perez Moar MD Active AMOXICILLIN 500 MG ORAL CAPSULE 1 cap by mouth three times a day AMOXICILLIN 84679661090 No Longer Active Carlton Hu MD Active ELMIRON 100 MG ORAL CAPSULE 2 tablets in the am and 1 tablet at hs PENTOSAN POLYSULFATE SODIUM 57599280824 No Longer Active Robert Hu MD Active MUCINEX D 60-600 MG ORAL TABLET EXTENDED RELEASE 12 HOUR 1 t ab po q am PSEUDOEPHEDRINE-GUAIFENESIN 10461575256 No Longer Act nael Carlton Hu MD Active MUCINEX DM MAXIMUM STRENGTH 60-1200 MG ORAL TABLET EXT ENDED RELEASE 12 HOUR 1 tab po q am DEXTROMETHORPHAN-GUAIFENESIN 16662205208 No Longer Active Carlton Hu MD Active TUSSIONEX PENNKINETIC ER 10-8 MG/5ML ORAL SUSPENSION E XTENDED RELEASE 5ml po q12hr PRN Cough HYDROCOD POLST-CHLORPHEN POLST 5 4011378482 No Longer Active Carlton Hu MD Active POTASSIUM CHLORIDE ER 20 MEQ ORAL TABLET EXTENDED RELE ASE Take 1 by mouth 4 times daily for 7 days POTASSIUM CHLORIDE 31919662708 No Longer Active Carlton Hu MD Active ZITHROMAX 250 MG ORAL TABLET 2 po today, then 1 po q days 2-5 20 14/09/04 AZITHROMYCIN 25173902628 No Longer Active Elise Garcia APRN Active TUSSIONEX PENNKINETIC ER 10-8 MG/5ML ORAL SUSPENSION E XTENDED RELEASE 5 ml twice a day as needed for cough HYDROCOD POLST-CHLORPH EN POLST 33392078192 No Longer Active Elise Garcia APRN Active MONTELUKAST SODIUM 10 MG ORAL TABLET 1 po daily for Allergy MONTELUKAST SODIUM 10284814118 Active Carlton Hu MD Ac tive TUSSIONEX PENNKINETIC ER 10-8 MG/5ML ORAL SUSPENSION E XTENDED RELEASE 5ml po q12hr PRN Cough HYDROCOD POLST-CHLORPHEN POLST 5 5392511784 No Longer Active Hugo Restrepo MD Active GABAPENTIN 100 MG ORAL CAPSULE 1 po BID for fibromyalgia GABAPENTIN 07189530680 Active Carlton Hu MD Active LYRICA 100 MG ORAL CAPSULE Take 1 tab po BID for fibromyalgia 20 11/08/21 PREGABALIN 93385497980 No Longer Active Elise Garcia APRN A ctive PREDNISONE 20 MG ORAL TABLET 2 tabs daily for 3 days, 1 tab daily for 3 days, 1/2 tab daily for 2 days PREDNISONE 38159262769 No Longer Active Diya De Guzman APRN Active TUSSIONEX PENNKINETIC ER 10-8 MG/5ML ORAL SUSPENSION E XTENDED RELEASE 5 mL PO q 12 hrs PRN cough HYDROCOD POLST-CHLORPHEN POLST 274001 34865 No Longer Active Jillina Gege RICEN Active FLUTICASONE PROPIONATE 50 MCG/ACT NASAL SUSPENSION 2 s prays each nostril daily until bottle is empty FLUTICASONE PROPIONATE 263458066 99 No Longer Active Diya De Guzman APRN Active ASMANEX 60 METERED DOSES 220 MCG/INH INHALATION AEROSO L POWDER BREATH ACTIVATED 1 puff bid with rinse after MOMETASONE FUROATE 9945058 4102 No Longer Active Diya De Guzman APRN Active ZITHROMAX Z-REYNA 250 MG ORAL TABLET 2 today, then 1 daily for 4 d ays AZITHROMYCIN 24922830699 No Longer Active Elise Garcia APRN Active TUSSIONEX PENNKINETIC ER 10-8 MG/5ML ORAL SUSPENSION E XTENDED RELEASE 5ml po q12hr PRN Cough HYDROCOD POLST-CHLORPHEN POLST 5 0850038899 No Longer Active Elise Garcia APRN Active PREDNISONE 20 MG ORAL TABLET 2 tabs daily for 3 days, 1 tab daily for 3 days, 1/2 tab daily for 2 days PREDNISONE 81127823329 No Longer Active Diya De Guzman APRN Active AMOXICILLIN 500 MG ORAL CAPSULE 2 po BID x 10 days 201 09/29/08 AMOXICILLIN 51989584725 No Longer Active Diya De Guzman APRN Act nael SINGULAIR 10 MG ORAL TABLET 1 po qday for allergies 20 14/01/12 MONTELUKAST SODIUM 35314470517 No Longer Active Carlton Hu MD Active LEVAQUIN 500 MG ORAL TABLET 1 tablet by mouth daily 20 13/09/24 LEVOFLOXACIN 89813265593 No Longer Active Carlton Hu MD Acti ve FLUTICASONE PROPIONATE 50 MCG/ACT NASAL SUSPENSION 2 s prays each nostril daily for 2 weeks, then 1 spray each nostril daily. FLUTICASONE PROPIONATE 66360563803 Active Elise Garcia APRN Active ZITHROMAX 250 MG ORAL TABLET 2 po today, then 1 po q days 2-5 20 13/08/10 AZITHROMYCIN 87531250021 No Longer Active Elise Garcia APRN Active XANAX 0.5 MG ORAL TABLET one tablet by mouth daily prn anxiety 2015 ALPRAZOLAM 18468032078 Active Carlton Hu MD Active CYMBALTA 30 MG ORAL CAPSULE DELAYED RELEASE PARTICLES 1 cap by mouth daily for depression DULOXETINE HCL 20431200421 Active Carlton beltrán MD Active CEFDINIR 300 MG ORAL CAPSULE 1 po BID x 10 days CEFDINIR 47468741636 No Longer Active Carlton Hu MD Active ZOCOR 40 MG ORAL TABLET 1 tab by mouth daily SI MVASTATIN 24857179634 No Longer Active Carlton Hu MD Active CYCLOBENZAPRINE HCL 10 MG ORAL TABLET 1 tablet by mouth BID prn had pain CYCLOBENZAPRINE HCL 10217123305 No Longer Active Jayden Hu MD Active LEVOFLOXACIN 500 MG ORAL TABLET 1 tab PO daily x 10 days LEVOFLOXACIN 52931377671 No Longer Active Carlton Hu MD Acti ve PREDNISONE 20 MG ORAL TABLET 3 tab PO qd x 2d, 2 tab P O qd x 2d, 1 tab PO qd x 2d, 1/2 tab PO qd x 2d PREDNISONE 90007340365 No Lo nger Active Carlton Hu MD Active FLUTICASONE PROPIONATE 50 MCG/ACT NASAL SUSPENSION 1 t o 2 sprays each nostril daily FLUTICASONE PROPIONATE 35414356298 No Longer Ac tive Blaine HERNANDEZ Active CHERATUSSIN AC 100-10 MG/5ML ORAL SYRUP 1 tsp by mouth every 4 hours as needed for cough GUAIFENESIN-CODEINE 69324539832 No Longe r Active Blaine HERNANDEZ Active PROMETHAZINE-CODEINE 6.25-10 MG/5ML ORAL SYRUP 1 tsp b y mouth every 6 hours if needed for cough PROMETHAZINE-CODEINE 92004404399 No Longer Active Blaine HERNANDEZ Active CHERATUSSIN AC 100-10 MG/5ML ORAL SYRUP 1 tsp by mouth every 4 hours as needed for cough GUAIFENESIN-CODEINE 23671558308 No Longe r Active Blaine HERNANDEZ Active ZITHROMAX Z-REYNA 250 MG ORAL TABLET 2 today, then 1 daily for 4 d ays AZITHROMYCIN 14822592706 No Longer Active Columba Raida Act nael ZITHROMAX 250 MG ORAL TABLET 2 po today, then 1 po q days 2-5 20 14/03/21 AZITHROMYCIN 16896040514 No Longer Active Carlton Hu MD Active ZITHROMAX Z-REYNA 250 MG ORAL TABLET 2 today, then 1 daily for 4 d ays AZITHROMYCIN 05805816561 No Longer Active Columba Raida Act nael AUGMENTIN 875-125 MG ORAL TABLET 1 po BID x 10 days 13/01/20 AMOXICILLIN-POT CLAVULANATE 96510290029 No Longer Active Diya De Guzman APRN Active ZITHROMAX 250 MG ORAL TABLET 2 po today, then 1 po q days 2-5 20 12/08/14 AZITHROMYCIN 20902455263 No Longer Active Carlton Hu MD Active TRAMADOL HCL 50 MG ORAL TABLET 1 po tid with ES Tylenol TRAMADOL HCL 94167204686 Active Carlton Hu MD Active PREMARIN 0.625 MG ORAL TABLET TAKE 1 TAB BY MOUTH DAILY ESTROGENS CONJUGATED 52119573544 No Longer Active Ridge Bess DO A ctive CYMBALTA 30 MG ORAL CAPSULE DELAYED RELEASE PARTICLES 1 cap by mouth daily DULOXETINE HCL 09480694213 No Longer Active Ridge tam DO Active AMOXICILLIN 500 MG ORAL CAPSULE 1 tab by mouth 3 times daily x 10 days AMOXICILLIN 21322278974 No Longer Active Carlton bustamante MD Active AMOXICILLIN 500 MG ORAL CAPSULE 1 tab by mouth 3 times daily x 10 days AMOXICILLIN 16066065554 No Longer Active Carlton bustamante MD Active PROMETHAZINE-CODEINE 6.25-10 MG/5ML ORAL SYRUP 1 tsp b y mouth every 8 hours prn cough PROMETHAZINE-CODEINE 92024930828 No Longer Acti ve Carlton Hu MD Active MEDROL 4 MG ORAL TABLET THERAPY PACK 6 pills x 1 day, then 5 pills x 1 day then 4 pills x 1 day, then 3 pills x 1 day, then 2 pills x 1 day, then 1 pill x 1 day, then stop METHYLPREDNISOLONE 97410191065 No Long er Active Perez Mora MD Active AZITHROMYCIN 250 MG ORAL TABLET 2 po qd x 1 day, then 1 po q d x 4 days AZITHROMYCIN 91700255192 No Longer Active Perez Ambriz MD Active SYMBICORT 160-4.5 MCG/ACT INHALATION AEROSOL 2 puffs bid wit h rinse after BUDESONIDE-FORMOTEROL FUMARATE 37714934995 N o Longer Active Perez Mora MD Active LYRICA 75 MG ORAL CAPSULE TAKE 1 CAPSULE BY MOUTH TWICE DAILY PREGABALIN 88072815494 No Longer Active Carlton Hu MD Acti ve TOPAMAX 25 MG ORAL TABLET 1 qHS x 1 week, then 1 BID x 1 week, then 1 qAM and 2 qHS x 1 week, then 2 BID (migraine prevention) T OPIRAMATE 23227331064 No Longer Active Jerica FUENTES Active TOPAMAX 50 MG ORAL TABLET take 1 tab po BID for migraines. 07/02 TOPIRAMATE 68783098994 No Longer Active Jerica FUENTES Active TOPAMAX 100 MG ORAL TABLET Take 1 tablet po bid TO PIRAMATE 92337753075 Active Carlton Hu MD Active TRIAMCINOLONE ACETONIDE 0.1 % EXTERNAL CREAM apply three roger es daily prn rash TRIAMCINOLONE ACETONIDE 79908214877 No Longer Active Carlton Hu MD Active PAXIL 40 MG ORAL TABLET take 1 tab po qday for depression 0 PAROXETINE HCL 13517002653 Active Carlton Hu MD Active CHERATUSSIN AC 100-10 MG/5ML ORAL SYRUP 5ml po q6hr PRN Cough 20 13/04/14 GUAIFENESIN-CODEINE 17014939743 No Longer Active Carlton Hu MD Active MEDROL 4 MG ORAL TABLET THERAPY PACK 6 tabs on day 1, 5 tabs on day 2, 4 tabs on day 3, 3 tabs on day 4, 2 tabs on day 5, 1 tab on day 6 2013 METHYLPREDNISOLONE 92409396721 No Longer Active Perez Mora MD Active AZITHROMYCIN 250 MG ORAL TABLET 2 po qd x 1 day, then 1 po q d x 4 days AZITHROMYCIN 50528550013 No Longer Active Perez Ambriz MD Active PROPRANOLOL HCL 60 MG ORAL TABLET 1 PO Q D PROPRANOLOL HCL 07669676560 No Longer Active Perez Mora MD Activ e CHERATUSSIN AC 100-10 MG/5ML ORAL SYRUP take one tsp po Q 6h ours prn cough GUAIFENESIN-CODEINE 28203830014 No Longer Active Zia Mora MD Active AUGMENTIN 875-125 MG ORAL TABLET 1 tab by mouth twice daily with food AMOXICILLIN-POT CLAVULANATE 85459908590 No Longer Act nael Perez Mora MD Active CHERATUSSIN AC 100-10 MG/5ML ORAL SYRUP 1 tsp by mouth every 4 hours as needed for cough GUAIFENESIN-CODEINE 03778111789 No Longe r Active Hugo Restrepo MD Active ACETAMINOPHEN-CODEINE #3 300-30 MG ORAL TABLET 1 PO Q 4-6 HRS [place] ACETAMINOPHEN-CODEINE 67226224485 No Longer Active Hugo Restrepo MD Active LEVAQUIN 500 MG ORAL TABLET take one po QD LEVO FLOXACIN 56573049379 No Longer Active Griffin HERNANDEZ Active PREDNISONE 20 MG ORAL TABLET Take 3 tabs daily for 3 d ays, 2 tabs daily for 3 days, 1 tab daily for 3 days, 1/2 tab daily for 3 days 11/07 PREDNISONE 04858871807 No Longer Active Carlton Hu MD Acti ve AVELOX 400 MG ORAL TABLET 1 tab by mouth daily MOXIFLOXACIN HCL 42226198673 No Longer Active Carlton Hu MD Active CHERATUSSIN AC 100-10 MG/5ML ORAL SYRUP 1 tsp by mouth every 4 hours as needed for cough GUAIFENESIN-CODEINE 59953797892 No Longe r Active Hugo Restrepo MD Active AVELOX 400 MG ORAL TABLET 1 tab by mouth daily MOXIFLOXACIN HCL 47555265759 No Longer Active Marcy De La Rosa MD PhD Active TERBINAFINE HCL 250 MG ORAL TABLET 1 qDay T ERBINAFINE HCL 14951191838 No Longer Active Marcy De La Rosa MD PhD Active CHERATUSSIN AC 100-10 MG/5ML ORAL SYRUP 1 tsp by mouth every 4 hours as needed for cough GUAIFENESIN-CODEINE 77313544702 No Longe r Active Marcy De La Rosa MD PhD Active AVELOX 400 MG ORAL TABLET 1 tab by mouth daily MOXIFLOXACIN HCL 91593190284 No Longer Active Marcy De La Rosa MD PhD Active HYDROCODONE-ACETAMINOPHEN 5-325 MG ORAL TABLET 1 po q 6hr PRN co ugh HYDROCODONE-ACETAMINOPHEN 80567244629 No Longer Active Marcy De La Rosa MD PhD Active PREDNISONE 20 MG ORAL TABLET 2 tabs daily for 3 days, 1 tab daily for 3 days, 1/2 tab daily for 2 days PREDNISONE 38774120691 No Longer Active Carlton Hu MD Active CEFDINIR 300 MG ORAL CAPSULE by mouth twice a day 2011 CEFDINIR 82775933784 No Longer Active Carlton Hu MD Acti ve HYDROCHLOROTHIAZIDE 25 MG ORAL TABLET 1 TAB PO DAILY HYDROCHLOROTHIAZIDE 27207732767 Active Carlton Hu MD A ctive ACETAMINOPHEN-CODEINE #3 300-30 MG ORAL TABLET 1 tablet po q 4-6 hrs prn pain ACETAMINOPHEN-CODEINE 63148820589 No Longer Active Ridge Bess DO Active ZITHROMAX 250 MG ORAL TABLET 2 po today, then 1 po q days 2-5 20 03/07/07 AZITHROMYCIN 88970799077 No Longer Active Carlton Hu MD Active CHERATUSSIN AC 100-10 MG/5ML ORAL SYRUP take 1 tsp po q4-6 h ours prn cough GUAIFENESIN-CODEINE 63094475034 No Longer Active Jayden Hu MD Active ACETAMINOPHEN-CODEINE #3 300-30 MG ORAL TABLET 1 PO Q 4-6 HR PRN PAIN ACETAMINOPHEN-CODEINE 10300042241 No Longer Active Arnol Hu MD Active LORTAB 7.5-500 MG/15ML ORAL ELIXIR 7.5 ml po q 4 hour prn cough HYDROCODONE-ACETAMINOPHEN 36031612895 No Longer Active Carlton Hu MD Active PREDNISONE 20 MG ORAL TABLET 1 po bid 3 days, then 1 po q day 3 days PREDNISONE 66379234743 No Longer Active Cralton Hu MD Active CEFDINIR 300 MG ORAL CAPSULE by mouth twice a day 2011 CEFDINIR 50507670022 No Longer Active Carlton Hu MD Acti ve CEFDINIR 300 MG ORAL CAPSULE by mouth twice a day 2010 CEFDINIR 79900394956 No Longer Active Carlton Hu MD Acti ve CEFDINIR 300 MG ORAL CAPSULE by mouth twice a day 2010 CEFDINIR 85393778691 No Longer Active Carlton Hu MD Acti ve TESSALON PERLES 100 MG ORAL CAPSULE 1 tablet by mouth 3 times daily as needed for cough BENZONATATE 19440584045 No Longer Active Carlton Hu MD Active CEFDINIR 300 MG ORAL CAPSULE by mouth twice a day 2010 CEFDINIR 16156865140 No Longer Active Carlton Hu MD Acti ve ZITHROMAX Z-REYNA 250 MG ORAL TABLET 2 today, then 1 daily for 4 d ays AZITHROMYCIN 45134572912 No Longer Active Hugo Restrepo MD Active TESSALON PERLES 100 MG ORAL CAPSULE 1 tablet by mouth 3 times daily as needed for cough TESSALON PERLES 100 MG ORAL CAPSULE 41783 7 BENZONATATE Inactive PREDNISONE 20 MG ORAL TABLET 1 po bid 3 days, then 1 po q day 3 days PREDNISONE 20 MG ORAL TABLET 291433 PREDNISONE [place] ctive LORTAB 7.5-500 MG/15ML ORAL ELIXIR [...] cough CHERATUSSIN AC 100-10 MG/5ML ORAL SYRUP 821036 GUAIFENESIN-CODEINE Inactive ACETAMINOPHEN-CODEINE #3 300-30 MG ORAL TABLET 1 tablet po q 4-6 hrs prn pain ACETAMINOPHEN-CODEINE #3 300-30 MG ORAL TABLET ACETAMINOPHEN-CODEINE Inactive HYDROCODONE-ACETAMINOPHEN 5-325 MG ORAL TABLET 1 po q 6hr PRN co ugh HYDROCODONE-ACETAMINOPHEN 5-325 MG ORAL TABLET 781111 HYDROCODONE-ACETAMINOPHEN Inactive AVELOX 400 MG ORAL TABLET 1 tab by mouth daily AVELOX 400 MG ORAL TABLET 362686 MOXIFLOXACIN HCL Inactive CHERATUSSIN AC 100-10 MG/5ML ORAL SYRUP 1 tsp by mouth every 4 hours as needed for cough CHERATUSSIN AC 100-10 MG/5ML ORAL SYRUP 9 81740 GUAIFENESIN-CODEINE Inactive TERBINAFINE HCL 250 MG ORAL TABLET 1 qDay 07/08 TERBINAFINE HCL 250 MG ORAL TABLET 052379 TERBINAFINE HCL Inactive CHERATUSSIN AC 100-10 MG/5ML ORAL SYRUP 1 tsp by mouth every 4 hours as needed for cough CHERATUSSIN AC 100-10 MG/5ML ORAL SYRUP 9 78155 GUAIFENESIN-CODEINE Inactive ACETAMINOPHEN-CODEINE #3 300-30 MG ORAL TABLET 1 PO Q 4-6 HRS [place] N PAIN ACETAMINOPHEN-CODEINE #3 300-30 MG ORAL TABLET ACETAMINOPHEN-CODEINE Inactive CHERATUSSIN AC 100-10 MG/5ML ORAL SYRUP 1 tsp by mouth every 4 hours as needed for cough CHERATUSSIN AC 100-10 MG/5ML ORAL SYRUP 9 93599 GUAIFENESIN-CODEINE Inactive AUGMENTIN 875-125 MG ORAL TABLET 1 tab by mouth twice daily with food AUGMENTIN 875-125 MG ORAL TABLET 251731 AMOXICIL MADELINE-POT CLAVULANATE Inactive CHERATUSSIN AC 100-10 MG/5ML ORAL SYRUP take one tsp po Q 6h ours prn cough CHERATUSSIN AC 100-10 MG/5ML ORAL SYRUP 478113 GUAIFENESIN-CODEINE Inactive PROPRANOLOL HCL 60 MG ORAL TABLET 1 PO Q D PROPRANOLOL HCL 60 MG ORAL TABLET 162289 PROPRANOLOL HCL Inactive TOPAMAX 50 MG ORAL TABLET take 1 tab po BID for migraines. 07/02 TOPAMAX 50 MG ORAL TABLET 849990 TOPIRAMATE Inacti ve TOPAMAX 25 MG ORAL TABLET 1 qHS x 1 week, then 1 BID x 1 week, then 1 qAM and 2 qHS x 1 week, then 2 BID (migraine prevention) TOPAMAX 25 MG ORAL TABLET 865268 TOPIRAMATE Inactive LYRICA 75 MG ORAL CAPSULE TAKE 1 CAPSULE BY MOUTH TWICE DAILY LYRICA 75 MG ORAL CAPSULE PREGABALIN Inactive SYMBICORT 160-4.5 MCG/ACT INHALATION AEROSOL 2 puffs bid wit h rinse after SYMBICORT 160-4.5 MCG/ACT INHALATION AEROSOL BUDESONIDE- FORMOTEROL FUMARATE Inactive PROMETHAZINE-CODEINE 6.25-10 MG/5ML ORAL SYRUP 1 tsp b y mouth every 8 hours prn cough PROMETHAZINE-CODEINE 6.25-10 MG/ 5ML ORAL SYRUP 598399 PROMETHAZINE-CODEINE Inactive CYMBALTA 30 MG ORAL CAPSULE DELAYED RELEASE PARTICLES 1 cap by mouth daily CYMBALTA 30 MG ORAL CAPSULE DELAYED RELE ASE PARTICLES 494178 DULOXETINE HCL Inactive PREMARIN 0.625 MG ORAL TABLET TAKE 1 TAB BY MOUTH DAILY PREMARIN 0.625 MG ORAL TABLET ESTROGENS CONJUGATED Inactive CHERATUSSIN AC 100-10 MG/5ML ORAL SYRUP 1 tsp by mouth every 4 hours as needed for cough CHERATUSSIN AC 100-10 MG/5ML ORAL SYRUP 9 85377 GUAIFENESIN-CODEINE Inactive PROMETHAZINE-CODEINE 6.25-10 MG/5ML ORAL SYRUP 1 tsp b y mouth every 6 hours if needed for cough PROMETHAZINE-CODEINE 6.25-10 MG/5ML ORAL SYRUP 346060 PROMETHAZINE-CODEINE Inactive CHERATUSSIN AC 100-10 MG/5ML ORAL SYRUP 1 tsp by mouth every 4 hours as needed for cough CHERATUSSIN AC 100-10 MG/5ML ORAL SYRUP 9 64719 GUAIFENESIN-CODEINE Inactive FLUTICASONE PROPIONATE 50 MCG/ACT NASAL SUSPENSION 1 t o 2 sprays each nostril daily FLUTICASONE PROPIONATE 50 MCG/AC T NASAL SUSPENSION 7235504 FLUTICASONE PROPIONATE Inactive PREDNISONE 20 MG ORAL TABLET 3 tab PO qd x 2d, 2 tab P O qd x 2d, 1 tab PO qd x 2d, 1/2 tab PO qd x 2d PREDNISONE 20 MG ORAL TAB LET 587428 PREDNISONE Inactive LEVOFLOXACIN 500 MG ORAL TABLET 1 tab PO daily x 10 days LEVOFLOXACIN 500 MG ORAL TABLET 118406 LEVOFLOXACIN Inactive CYCLOBENZAPRINE HCL 10 MG ORAL TABLET 1 tablet by mouth BID prn had pain CYCLOBENZAPRINE HCL 10 MG ORAL TABLET 842166 CYCLOBENZAPRINE HCL Inactive ZOCOR 40 MG ORAL TABLET 1 tab by mouth daily 4 ZOCOR 40 MG ORAL TABLET 361220 SIMVASTATIN Inactive TUSSIONEX PENNKINETIC ER 10-8 MG/5ML [...] FLUTICASONE PROPIO EFE 50 MCG/ACT NASAL SUSPENSION 3467548 FLUTICASONE PROPIONATE Inactive TUSSIONEX PENNKINETIC ER 10-8 [...] three days PREDNISONE 20 MG ORAL TABLET 243055 PREDNIS ONE Inactive PROAIR HFA 108 (90 BASE) MCG/ACT INHALATION AEROSOL SO LUTION 2 puffs four times a day as needed PROAIR HFA 108 (90 B ASE) MCG/ACT INHALATION AEROSOL SOLUTION ALBUTEROL SULFATE Inactive ZITHROMAX Z-REYNA 250 MG ORAL TABLET 2 today, then 1 daily for 4 d ays ZITHROMAX Z-REYNA 250 MG ORAL TABLET 906575 AZITHROMYCIN Inactive CEFDINIR 300 MG ORAL CAPSULE by mouth twice a day 2010 CEFDINIR 300 MG ORAL CAPSULE 575241 CEFDINIR Inactive CEFDINIR 300 MG ORAL CAPSULE [...] 2-5 03/07/07 ZITHROMAX 250 MG ORAL TABLET 144086 AZITHROMYCIN Greer ctive CEFDINIR 300 MG ORAL CAPSULE by mouth twice a day 2011 CEFDINIR 300 MG ORAL CAPSULE 20020704 CEFDINIR Inactive PREDNISONE 20 MG ORAL TABLET 2 tabs daily for 3 days, 1 tab daily for 3 days, 1/2 tab daily for 2 days PREDNISONE 20 MG ORAL T ABLET 074961 PREDNISONE Inactive AVELOX 400 MG ORAL TABLET 1 tab by mouth daily AVELOX 400 MG ORAL TABLET 033536 MOXIFLOXACIN HCL Inactive AVELOX 400 MG ORAL TABLET 1 tab by mouth daily AVELOX 400 MG ORAL TABLET 195155 MOXIFLOXACIN HCL Inactive PREDNISONE 20 MG ORAL TABLET Take 3 tabs daily for 3 d ays, 2 tabs daily for 3 days, 1 tab daily for 3 days, 1/2 tab daily for 3 days 11/07 PREDNISONE 20 MG ORAL TABLET 938300 PREDNISONE Inactive LEVAQUIN 500 MG ORAL TABLET take one po QD LEVAQUIN 500 MG ORAL TABLET 277044 LEVOFLOXACIN Inactive AZITHROMYCIN 250 MG ORAL TABLET 2 po qd x 1 day, then 1 po q d x 4 days AZITHROMYCIN 250 MG ORAL TABLET 643951 AZITHROMY GIOVANNI Inactive MEDROL 4 MG ORAL TABLET THERAPY PACK 6 tabs on day 1, 5 tabs on day 2, 4 tabs on day 3, 3 tabs on day 4, 2 tabs on day 5, 1 tab on day 6 2013 MEDROL 4 MG ORAL TABLET THERAPY PACK 884865 METHYLPREDNISOLONE Greer ctive CHERATUSSIN AC 100-10 MG/5ML ORAL SYRUP 5ml po q6hr PRN Cough 20 13/04/14 CHERATUSSIN AC 100-10 MG/5ML ORAL SYRUP 310497 GUAIFENE SIN-CODEINE Inactive TRIAMCINOLONE ACETONIDE 0.1 % EXTERNAL CREAM apply three roger es daily prn rash TRIAMCINOLONE ACETONIDE 0.1 % EXTERNAL CREAM 101 4314 TRIAMCINOLONE ACETONIDE Inactive AZITHROMYCIN 250 MG ORAL TABLET 2 po qd x 1 day, then 1 po q d x 4 days AZITHROMYCIN 250 MG ORAL TABLET 891466 AZITHROMY GIOVANNI Inactive MEDROL 4 MG ORAL TABLET THERAPY PACK 6 pills x 1 day, then 5 pills x 1 day then 4 pills x 1 day, then 3 pills x 1 day, then 2 pills x 1 day, then 1 pill x 1 day, then stop MEDROL 4 MG ORAL TABLET THERAPY PACK 786256 METHYLPREDNISOLONE Inactive AMOXICILLIN 500 MG ORAL CAPSULE 1 tab by mouth 3 times daily x 10 days AMOXICILLIN 500 MG ORAL CAPSULE 102737 AMOXICILL IN Inactive AMOXICILLIN 500 MG ORAL CAPSULE 1 tab by mouth 3 times daily x 10 days AMOXICILLIN 500 MG ORAL CAPSULE 150284 AMOXICILL IN Inactive ZITHROMAX 250 MG ORAL TABLET 2 po today, then 1 po q days 2-5 20 12/08/14 ZITHROMAX 250 MG ORAL TABLET 238063 AZITHROMYCIN [place] ctive AUGMENTIN 875-125 MG ORAL TABLET 1 po BID x 10 days 20 13/01/20 AUGMENTIN 875-125 MG ORAL TABLET 926210 AMOXICILLIN-POT CLAVULANATE Inactive ZITHROMAX Z-REYNA 250 MG ORAL TABLET 2 today, then 1 daily for 4 d ays ZITHROMAX Z-REYNA 250 MG ORAL TABLET 258164 AZITHROMYCIN Inactive ZITHROMAX 250 MG ORAL TABLET 2 po today, then 1 po q days 2-5 20 14/03/21 ZITHROMAX 250 MG ORAL TABLET 628241 AZITHROMYCIN [place] ctive ZITHROMAX Z-REYNA 250 MG ORAL TABLET 2 today, then 1 daily for 4 d ays ZITHROMAX Z-REYNA 250 MG ORAL TABLET 579378 AZITHROMYCIN Inactive CEFDINIR 300 MG ORAL CAPSULE 1 po BID x 10 days 06/21 CEFDINIR 300 MG ORAL CAPSULE 20020704 CEFDINIR Inactive ZITHROMAX 250 MG ORAL TABLET 2 po today, then 1 po q days 2-5 20 13/08/10 ZITHROMAX 250 MG ORAL TABLET 603142 AZITHROMYCIN Greer ctive LEVAQUIN 500 MG ORAL TABLET 1 tablet by mouth daily 13/09/24 LEVAQUIN 500 MG ORAL TABLET 19971102 LEVOFLOXACIN Inactive SINGULAIR 10 MG ORAL TABLET 1 po qday for allergies 20 14/01/12 SINGULAIR 10 MG ORAL TABLET 20010504 MONTELUKAST SODIUM Inactive AMOXICILLIN 500 MG ORAL CAPSULE 2 po BID x 10 days 201 09/29/08 AMOXICILLIN 500 MG ORAL CAPSULE 181137 AMOXICILLIN Inactive PREDNISONE 20 MG ORAL TABLET 2 tabs daily for 3 days, 1 tab daily for 3 days, 1/2 tab daily for 2 days PREDNISONE 20 MG ORAL T ABLET 607074 PREDNISONE Inactive ZITHROMAX Z-REYNA 250 MG ORAL TABLET 2 today, then 1 daily for 4 d ays ZITHROMAX Z-REYNA 250 MG ORAL TABLET 719840 AZITHROMYCIN Inactive PREDNISONE 20 MG ORAL TABLET 2 tabs daily for 3 days, 1 tab daily for 3 days, 1/2 tab daily for 2 days PREDNISONE 20 MG ORAL T ABLET 524000 PREDNISONE Inactive ZITHROMAX 250 MG ORAL TABLET 2 po today, then 1 po q days 2-5 20 14/09/04 ZITHROMAX 250 MG ORAL TABLET 258509 AZITHROMYCIN Greer ctive AMOXICILLIN 500 MG ORAL CAPSULE 1 cap by mouth three times a day AMOXICILLIN 500 MG ORAL CAPSULE 033161 AMOXICILLIN Inactive TERBINAFINE HCL 250 MG ORAL TABLET 1 qDay for nail fungus 7 TERBINAFINE HCL 250 MG ORAL TABLET 424043 TERBINAFINE HCL Inact nael AUGMENTIN 875-125 MG ORAL TABLET 1 po BID x 10 days 16/03/22 AUGMENTIN 875-125 MG ORAL TABLET 608333 AMOXICILLIN-POT CLAVULANATE Inactive PREDNISONE 20 MG ORAL TABLET 2 po qd x 5 days PREDNISONE 20 MG ORAL TABLET 728459 PREDNISONE Inactive Vital Signs Date Name Value [...] - Chem istry sodium, serum 132 mmol/L 128-640 6496/07/12 potassium, serum 2.7 mmol/L 3.5-5.2 chloride, serum 93 mmol/L 98-107 carbon dioxide, venous blood 30.8 mmol/L 21.0-32 .0 blood glucose 107 mg/dL 65-110 calcium, serum 9.3 mg/dL 8.5-10.1 urea nitrogen, blood 12 mg/dL 7-18 creatinine, serum 1.00 mg/dL 0.60-1.30 sodium, serum 142 mmol/L 169-628 3739/07/17 potassium, serum 4.2 mmol/L 3.5-5.2 chloride, serum 106 mmol/L 98-107 carbon dioxide, venous blood 29.9 mmol/L 21.0-32 .0 blood glucose 108 mg/dL 65-110 calcium, serum 9.1 mg/dL 8.5-10.1 urea nitrogen, blood 11 mg/dL 7-18 creatinine, serum 0.81 mg/dL 0.60-1.30 sodium, serum 139 mmol/L 846-753 6617/03/19 potassium, serum 3.6 mmol/L 3.5-5.2 chloride, serum 100 mmol/L 98-107 carbon dioxide, venous blood 30.3 mmol/L 21.0-32 .0 blood glucose 101 mg/dL 65-110 calcium, serum 9.4 mg/dL 8.5-10.1 urea nitrogen, blood 10 mg/dL 7-18 creatinine, serum 0.96 mg/dL 0.60-1.30 Lab Report: Rapid Strep - Lab Microbial identification kit, rapid strep method Negative Negative Encounters Code Encounter Date Provider Facility CPT-79648 Level 3 Est. Patient 11:34:49 HEALTHCARE PROJECT MANAGER Perez Mora MD [facility] CPT-16814 Level 4 Est. Patient 09:51:32 HEALTHCARE PROJECT MANAGER Carlton rich MD [facility] CPT-06961 Level 3 Est. Patient 10:26:00 HEALTHCARE PROJECT MANAGER Elise stephenson APRN [facility] CPT-91516 Level 3 Est. Patient 13:35:41 HEALTHCARE PROJECT MANAGER Carlton rich MD [facility] CPT-66238 Level 3 Est. Patient 10:03:52 HEALTHCARE PROJECT MANAGER Carlton rich MD [facility] CPT-30125 Level 3 Est. Patient 12:17:50 CDT Hugo Restrepo MD [facility] CPT-90722 Level 3 Est. Patient 13:42:38 CDT Elise Are ll [facility] CPT-06863 Level 3 Est. Patient 13:23:51 CDT Diya cobian [facility] CPT-47825 Level 3 Est. Patient 14:22:19 HEALTHCARE PROJECT MANAGER Diya cobian [facility] CPT-86389 Level 3 Est. Patient 10:11:46 CDT Carlton rich MD [facility] CPT-29871 Level 3 Est. Patient 17:29:43 CDT Elise Are [facility] CPT-44295 Level 3 Est. Patient 11:58:06 CDT Elise Are [facility] CPT-37056 Level 4 Est. Patient 14:36:51 CDT Carlton rich MD [facility] CPT-72165 Level 3 Est. Patient 18:16:00 HEALTHCARE PROJECT MANAGER Blaine HERNANDEZ [facility] CPT-08457 Level 3 Est. Patient 09:45:49 HEALTHCARE PROJECT MANAGER Carlton rich MD [facility] CPT-01422 Level 3 Est. Patient 13:19:20 CDT Carlton rich MD [facility] CPT-90606 Level 3 Est. Patient 13:06:43 CDT Ridge tam DO [facility] CPT-99102 Level 3 Est. Patient 10:03:07 CDT Perez Mora MD [facility] CPT-47775 Level 3 Est. Patient 19:50:35 HEALTHCARE PROJECT MANAGER Carlton rich MD [facility] CPT-27415 Level 4 Est. Patient 18:05:01 HEALTHCARE PROJECT MANAGER Carlton rich MD [facility] CPT-94801 Level 3 Est. Patient 10:45:55 HEALTHCARE PROJECT MANAGER Hugo Restrepo MD [facility] CPT-06938 Level 3 Est. Patient 14:12:49 CDT Griffin HERNANDEZ [facility] CPT-96469 Level 3 Est. Patient 17:37:24 CDT Carlton rich MD [facility] CPT-02456 Level 3 Est. Patient 16:51:54 CDT Carlton rich MD [facility] CPT-08673 Level 3 Est. Patient 12:18:11 CDT Hugo Restrepo MD [facility] CPT-76171 Level 3 Est. Patient 11:30:25 CDT Marcy crisostomo MD PhD [facility] CPT-13865 Level 3 Est. Patient 12:00:47 HEALTHCARE PROJECT MANAGER Carlton rich MD [facility] CPT-80710 Level 3 Est. Patient 16:31:06 HEALTHCARE PROJECT MANAGER Carlton rich MD [facility] CPT-44753 Level 3 Est. Patient 16:23:24 HEALTHCARE PROJECT MANAGER Ridge tam DO [facility] CPT-39522 Level 3 Est. Patient 12:34:12 CDT Carlton rich MD [facility] CPT-78932 Level 2 Est. Patient 15:43:33 CDT Robi armstrong MD [facility] CPT-18390 Level 4 Est. Patient 14:04:44 CDT Carlton rich MD [facility] CPT-56555 Level 3 Est. Patient 05:47:59 CDT Ridge tam [facility] CPT-51995 Level 3 Est. Patient 13:12:53 HEALTHCARE PROJECT MANAGER Carlton rich MD [facility] CPT-96394 Level 3 Est. Patient 14:26:53 CDT Hugo [...] CPT-J1100 Decadron 6mg (Dexamethasone) 14:32:13 CDT 2 CPT-21630 Hip bilat min 2V w AP pelvis 13:16:20 CDT 2 CPT-64672 Pelvis only 13:07:33 CDT CPT-56439 Spec Collection and Handling Fee 11:25:12 C DT CPT-04880 Fluzone Quadrivalent Intramuscular Suspe nsion 0.5 ML 14:31:55 CDT CPT-11619 Abx/Therapy Injection 13:28:47 HEALTHCARE PROJECT MANAGER CPT-J2930 Solu Medrol 125 mg (Methyl Prednisolone Sodium Succinate) 12:00:47 HEALTHCARE PROJECT MANAGER CPT-66115 Venipuncture Draw Fee 11:33:31 CDT CPT-09300 EKG Trac and Interp 11:21:09 CDT CPT-33580 Chest 2V Frontal and Lat 11:21:09 CDT 12/15 CPT-28736 Venipuncture Draw Fee 08:02:34 CDT CPT-09900 Chest 2V Frontal and Lat 05:47:59 CDT 06/05
--- OUTSIDE RECORDS SUMMARY | 2019-10-08 09:48 | XMS REPORT | Clinical Summary ---
Author Author Caitlin, Juliana Martinez Organization [employer] [facility] Address Unknown Phone Unavailable [...] sites Sinusitis 473.9 Active Diya De Guzman LEI MAKER Unspecified sinusitis (chronic) Bronchitis-Acute 466.0 Active Carlton Hu MD Acute bronchitis URI - acute 465.9 Active Elise Whitmore LEI MAKER Acute upper respiratory infections of unspecified site Pharyngitis acute 462 Active Elise Whitmore A PRN Acute pharyngitis Rhinitis, acute 460 Active Elise Whitmore APR N Acute nasopharyngitis [common cold] Sinusitis 473.9 Active Diya De Guzman LEI MAKER Unspecified sinusitis (chronic) Bronchitis 490 Active Diya De Guzman LEI MAKER Bronchitis, not specified as acute or chronic [...] a d ay as needed ALBUTEROL SULFATE 50878560012 Active Jillina Frazell APR N Active MUCINEX DM MAXIMUM STRENGTH 60-1200 MG [id number] 1 tab po q am 2016 DEXTROMETHORPHAN-GUAIFENESIN [id number] Active Jillina Frazell LEI MAKER Active TUSSIONEX PENNKINETIC ER 10-8 MG/5ML LQCR 5ml po q12hr PRN Cough 20 14/06/21 HYDROCOD POLST-CHLORPHEN POLST 01553918227 Active Carlton Hu MD Active PREDNISONE 20 MG TAB 2 tabs daily for 3 days, 1 t ab daily for 3 days, 1/2 tab daily for 2 days PREDNISONE 87618352490 No Longer Active Jillina Cesarl LEI MAKER Active TUSSIONEX PENNKINETIC ER 10-8 MG/5ML ORAL LQCR 5 mL PO q 12 hrs PRN cough HYDROCOD POLST-CHLORPHEN POLST 11074120320 No Longer Active Jillina Frazell LEI MAKER Active FLUTICASONE PROPIONATE 50 MCG/ACT SUSP 2 sprays each n ostril daily until bottle is empty FLUTICASONE PROPIONATE 87371664590 No Longer Ac tive Jillina Cesarl LEI MAKER Active ASMANEX 60 METERED DOSES 220 MCG/INH AEPB 1 puff bid with ri nse after MOMETASONE FUROATE 04875258464 No Longer Active Venullina Darlin meneses LEI MAKER Active ZITHROMAX Z-REYNA 250 MG TABS 2 today, then 1 daily for 4 days 201 09/29/14 AZITHROMYCIN 63257489453 No Longer Active Elise Whitmore APRN Active TUSSIONEX PENNKINETIC ER 10-8 MG/5ML LQCR 5ml po q12hr PRN Cough HYDROCOD POLST-CHLORPHEN POLST 41782688629 No Longer Active Elise Whitmore APRN Active MUCINEX D 60-600 MG [id number] 1 tab po q am PSEUDOEPHEDRINE-GUAIFENESIN 91702810051 Active Jillina Frazell LEI MAKER Active PREDNISONE 20 MG TAB 2 tabs daily for 3 days, 1 t ab daily for 3 days, 1/2 tab daily for 2 days PREDNISONE 09701854714 No Longer Active Jillina Frazell LEI MAKER Active AMOXICILLIN 500 MG CAPS 2 po BID x 10 days AMOX ICILLIN 17353741164 No Longer Active Jillina Frazell LEI MAKER Active SINGULAIR 10 MG TABS 1 po qday for allergies 2 MONTELUKAST SODIUM 26351997271 No Longer Active Carlton Hu MD Acti ve LEVAQUIN 500 MG TAB 1 tablet by mouth daily LEV OFLOXACIN 55005737835 No Longer Active Carlton Hu MD Active FLUTICASONE PROPIONATE 50 MCG/ACT SUSP 2 sprays each n ostril daily for 2 weeks, then 1 spray each nostril daily. FLUTICASONE PRO PIONATE 92664577529 Active Elise Whitmore APRN Active ZITHROMAX 250 MG TAB 2 po today, then 1 po q days 2-5 AZITHROMYCIN 45160743256 No Longer Active Elise Whitmore APRN Acti ve XANAX 0.5 MG TABS one tablet by mouth daily prn anxiety ALPRAZOLAM 07707560081 Active Elise Whitmore APRN Active CYMBALTA 30 MG CPEP 1 cap by mouth daily for depression DULOXETINE HCL 29905541239 Active Carlton Hu MD Active CEFDINIR 300 MG CAPS 1 po BID x 10 days CEFDINI R 46597837291 No Longer Active Carlton Hu MD Active ZOCOR 40 MG TAB 1 tab by mouth daily SIMVASTATI N 88877130298 No Longer Active Carlton Hu MD Active CYCLOBENZAPRINE HCL 10 MG TABS 1 tablet by mouth BID prn had cherelle n CYCLOBENZAPRINE HCL 51253337557 No Longer Active Carlton Hu MD Active LEVOFLOXACIN 500 MG ORAL TABS 1 tab PO daily x 10 days LEVOFLOXACIN 13760258720 No Longer Active Carlton Hu MD Acti ve PREDNISONE 20 MG ORAL TABS 3 tab PO qd x 2d, 2 tab PO qd x 2d, 1 tab PO qd x 2d, 1/2 tab PO qd x 2d PREDNISONE 66660879508 No Longer Active Carlton Hu MD Active FLUTICASONE PROPIONATE 50 MCG/ACT SUSP 1 to 2 sprays each no stril daily FLUTICASONE PROPIONATE 48582808209 No Longer Active T jaz HERNANDEZ Active CHERATUSSIN AC 100-10 MG/5ML SYRP 1 tsp by mouth every 4 hours as needed for cough GUAIFENESIN-CODEINE 72452024816 No Longer Activ e Blaine HERNANDEZ Active PROMETHAZINE-CODEINE 6.25-10 MG/5ML SYRP 1 tsp by mout h every 6 hours if needed for cough PROMETHAZINE-CODEINE 58262488970 No Long er Active Blaine HERNANDEZ Active CHERATUSSIN AC 100-10 MG/5ML SYRP 1 tsp by mouth every 4 hours as needed for cough GUAIFENESIN-CODEINE 18840884657 No Longer Activ e Blaine HERNANDEZ Active ZITHROMAX Z-REYNA 250 MG TABS 2 today, then 1 daily for 4 days 201 08/30/03 AZITHROMYCIN 85884190477 No Longer Active Columba Parrish Act nael ZITHROMAX 250 MG TAB 2 po today, then 1 po q days 2-5 AZITHROMYCIN 89160710562 No Longer Active Carlton Hu MD Acti ve ZITHROMAX Z-REYNA 250 MG TABS 2 today, then 1 daily for 4 days 201 08/07/20 AZITHROMYCIN 18201315662 No Longer Active Columba Parrish Act nael AUGMENTIN 875-125 MG TAB 1 po BID x 10 days AMOXICILLIN- POT CLAVULANATE 49925429174 No Longer Active Diya De Gumzan APRN Active ZITHROMAX 250 MG TAB 2 po today, then 1 po q days 2-5 AZITHROMYCIN 43435408269 No Longer Active Carlton Hu MD Acti ve TRAMADOL HCL 50 MG TABS 1 po tid with ES Tylenol TRAMADOL HCL 66792612979 Active Carlton Hu MD Active PREMARIN 0.625 MG TABS TAKE 1 TAB BY MOUTH DAILY 07/25 ESTROGENS CONJUGATED 28584740858 No Longer Active Ridge Bess DO Active CYMBALTA 30 MG CPEP 1 cap by mouth daily DULOXE SNEHA HCL 42969881969 No Longer Active Ridge Bess DO Active AMOXICILLIN 500 MG CAP 1 tab by mouth 3 times daily x 10 days 20 14/04/28 AMOXICILLIN 33433909852 No Longer Active Carlton Hu MD Active AMOXICILLIN 500 MG CAP 1 tab by mouth 3 times daily x 10 days 20 13/03/08 AMOXICILLIN 55455921284 No Longer Active Carlton Hu MD Active PROMETHAZINE-CODEINE 6.25-10 MG/5ML SYRP 1 tsp by mouth ever y 8 hours prn cough PROMETHAZINE-CODEINE 49342364662 No Longer Active Robert Hu MD Active MEDROL (REYNA) 4 MG TABS 6 pills x 1 day, then 5 pill s x 1 day then 4 pills x 1 day, then 3 pills x 1 day, then 2 pills x 1 day, then 1 pill x 1 day, then stop METHYLPREDNISOLONE 08871855618 No Longer Active Parris Mora MD Active AZITHROMYCIN 250 MG TABS 2 po qd x 1 day, then 1 po qd x 4 days AZITHROMYCIN 06929878974 No Longer Active Perez Mora MD Active SYMBICORT 160-4.5 MCG/ACT AERO 2 puffs bid with rinse after 2011 BUDESONIDE-FORMOTEROL FUMARATE 84471162833 No Longer Active Perez Mora MD Active LYRICA 75 MG CAPS TAKE 1 CAPSULE BY MOUTH TWICE DAILY 2013 PREGABALIN 83204093035 No Longer Active Carlton Hu MD Active LYRICA 100 MG CAPS Take 1 tab po BID for fibromyalgia PREGABALIN 75195255883 Active Carlton Hu MD Active TOPAMAX 25 MG TABS 1 qHS x 1 week, then 1 BID x 1 week, then 1 qAM and 2 qHS x 1 week, then 2 BID (migraine prevention) TOPIRAMAT E 42214142658 No Longer Active Jerica FUENTES Active TOPAMAX 50 MG TABS take 1 tab po BID for migraines. 12/07/10 TOPIRAMATE 86681637852 No Longer Active Jerica AGUILARA Ac tive TOPAMAX 100 MG TABS Take 1 tablet po bid TOPIRAMATE 4999 7351515 Active Elise Whitmore APRN Active TRIAMCINOLONE ACETONIDE 0.1 % CREA apply three times daily prn r beatrice TRIAMCINOLONE ACETONIDE 85159819434 No Longer Active Carlton Hu MD Active PAXIL 40 MG TAB take 1 tab po qday for depression PAROXETINE HCL 63741038018 Active Elise Whitmore APRN Active CHERATUSSIN AC 100-10 MG/5ML SYRP 5ml po q6hr PRN Cough GUAIFENESIN-CODEINE 04065380232 No Longer Active Carlton Hu MD Active MEDROL (REYNA) 4 MG TABS 6 tabs on day 1, 5 tabs on d ay 2, 4 tabs on day 3, 3 tabs on day 4, 2 tabs on day 5, 1 tab on day 6 METHYLPREDNISOLONE 46672841257 No Longer Active Perez Mora MD Active AZITHROMYCIN 250 MG TABS 2 po qd x 1 day, then 1 po qd x 4 days AZITHROMYCIN 05926066219 No Longer Active Perez Mora MD Active PROPRANOLOL HCL 60 MG TABS 1 PO Q D PROPRANOL OL HCL 31206187016 No Longer Active Perez Mora MD Active CHERATUSSIN AC 100-10 MG/5ML SYRP take one tsp po Q 6hours prn c ough GUAIFENESIN-CODEINE 76018968711 No Longer Active Perez Means Active AUGMENTIN 875-125 MG TAB 1 tab by mouth twice daily with food 20 12/03/31 AMOXICILLIN-POT CLAVULANATE 15865253626 No Longer Active Chanel Mora MD Active CHERATUSSIN AC 100-10 MG/5ML SYRP 1 tsp by mouth every 4 hours as needed for cough GUAIFENESIN-CODEINE 19643400162 No Longer Activ e Hugo Restrepo MD Active ACETAMINOPHEN-CODEINE #3 300-30 MG TABS 1 PO Q 4-6 HRS PRN PAIN ACETAMINOPHEN-CODEINE 20560734420 No Longer Active Hugo Restrepo MD Active LEVAQUIN 500 MG TABS take one po QD LEVOFLOXACI N 50163587781 No Longer Active Griffin HERNANDEZ Active PREDNISONE 20 MG TAB Take 3 tabs daily for 3 days , 2 tabs daily for 3 days, 1 tab daily for 3 days, 1/2 tab daily for 3 days P REDNISONE 34794304158 No Longer Active Carlton Hu MD Active AVELOX 400 MG TABS 1 tab by mouth daily MOXIFLO XACIN HCL 31112377358 No Longer Active Carlton Hu MD Active CHERATUSSIN AC 100-10 MG/5ML SYRP 1 tsp by mouth every 4 hours as needed for cough GUAIFENESIN-CODEINE 25350880253 No Longer Activ e Hugo Restrepo MD Active AVELOX 400 MG TABS 1 tab by mouth daily MOXIFLO XACIN HCL 05131635542 No Longer Active Marcy De La Rosa MD PhD Active TERBINAFINE HCL 250 MG TABS 1 qDay TERBINAF INE HCL 96847718691 No Longer Active Marcy De La Rosa MD PhD Active CHERATUSSIN AC 100-10 MG/5ML SYRP 1 tsp by mouth every 4 hours as needed for cough GUAIFENESIN-CODEINE 62324305920 No Longer Activ e Marcy De La Rosa MD PhD Active AVELOX 400 MG TABS 1 tab by mouth daily MOXIFLO XACIN HCL 47369146656 No Longer Active Marcy De La Rosa MD PhD Active HYDROCODONE-ACETAMINOPHEN 5-325 MG TABS 1 po q 6hr PRN cough 201 05/09/16 HYDROCODONE-ACETAMINOPHEN 84249482078 No Longer Active Marcy De La Rosa MD PhD Active PREDNISONE 20 MG TAB 2 tabs daily for 3 days, 1 t ab daily for 3 days, 1/2 tab daily for 2 days PREDNISONE 51367091772 No Longer Active Carlton Hu MD Active CEFDINIR 300 MG CAPS by mouth twice a day CEFDI ODILIA 21040039939 No Longer Active Carlton Hu MD Active HYDROCHLOROTHIAZIDE 25 MG TABS 1 TAB PO DAILY H YDROCHLOROTHIAZIDE 53340009098 Active Carlton Hu MD Active ACETAMINOPHEN-CODEINE #3 300-30 MG TABS 1 tablet po q 4-6hrs prn pain ACETAMINOPHEN-CODEINE 23536404106 No Longer Active Ridge Bess DO Active ZITHROMAX 250 MG TAB 2 po today, then 1 po q days 2-5 AZITHROMYCIN 28845918112 No Longer Active Carlton Hu MD Acti ve CHERATUSSIN AC 100-10 MG/5ML SYRP take 1 tsp po q4-6 hours prn c ough GUAIFENESIN-CODEINE 32321568387 No Longer Active Carlton Hu MD Active ACETAMINOPHEN-CODEINE #3 300-30 MG TABS 1 PO Q 4-6 HR PRN PAIN 2 ACETAMINOPHEN-CODEINE 10347012189 No Longer Active Carlton rich MD Active LORTAB 7.5-500 MG/15ML ELIX 7.5 ml po q 4 hour prn cough HYDROCODONE-ACETAMINOPHEN 13563080895 No Longer Active Carlton Hu MD Active PREDNISONE 20 MG TAB 1 po bid 3 days, then 1 po q day 3 days 201 05/03/07 PREDNISONE 56775083294 No Longer Active Carlton Hu MD Active ELMIRON 100 MG CAPS 2 tablets in the am and 1 tablet at hs PENTOSAN POLYSULFATE SODIUM 13232684866 Active Carlton Hu MD Ac tive CEFDINIR 300 MG CAPS by mouth twice a day CEFDI ODILIA 98982707438 No Longer Active Carlton Hu MD Active CEFDINIR 300 MG CAPS by mouth twice a day CEFDI ODILIA 33133586786 No Longer Active Carlton Hu MD Active CEFDINIR 300 MG CAPS by mouth twice a day CEFDI ODILIA 20428207907 No Longer Active Carlton Hu MD Active TESSALON PERLES 100 MG CAP 1 tablet by mouth 3 times daily a s needed for cough BENZONATATE 90465879424 No Longer Active Carlton bustamante MD Active CEFDINIR 300 MG CAPS by mouth twice a day CEFDI ODILIA 12957002453 No Longer Active Carlton Hu MD Active ZITHROMAX Z-REYNA 250 MG TABS 2 today, then 1 daily for 4 days 201 04/09/17 AZITHROMYCIN 00361400397 No Longer Active Hugo Restrepo MD Active TESSALON PERLES 100 MG CAP 1 tablet by mouth 3 times daily a s needed for cough TESSALON PERLES 100 MG CAP 950734 BENZONATATE I nactive PREDNISONE 20 MG TAB 1 po bid 3 days, then 1 po q day 3 days 201 05/03/07 PREDNISONE 20 MG TAB 841951 PREDNISONE Inactive LORTAB 7.5-500 MG/15ML ELIX 7.5 ml po q 4 hour prn cough LORTAB 7.5-500 MG/15ML ELIX HYDROCODONE-ACETAMINOPHEN Inacti ve ACETAMINOPHEN-CODEINE #3 300-30 MG TABS 1 PO Q 4-6 HR PRN PAIN 2 ACETAMINOPHEN-CODEINE #3 300-30 MG TABS 079175 ACETAMIN OPHEN-CODEINE Inactive CHERATUSSIN AC 100-10 MG/5ML SYRP take 1 tsp po q4-6 hours prn c ough CHERATUSSIN AC 100-10 MG/5ML SYRP 006988 GUAIFENESIN-CO DEINE Inactive ACETAMINOPHEN-CODEINE #3 300-30 MG TABS 1 tablet po q 4-6hrs prn pain ACETAMINOPHEN-CODEINE #3 300-30 MG TABS 561453 ACETAMIN OPHEN-CODEINE Inactive HYDROCODONE-ACETAMINOPHEN 5-325 MG TABS 1 po q 6hr PRN cough 201 05/09/16 HYDROCODONE-ACETAMINOPHEN 5-325 MG TABS 220051 HYDROCODONE-ACETAMINOPHEN Inactive AVELOX 400 MG TABS 1 tab by mouth daily A VELOX 400 MG TABS 877922 MOXIFLOXACIN HCL Inactive CHERATUSSIN AC 100-10 MG/5ML SYRP 1 tsp by mouth every 4 hours as needed for cough CHERATUSSIN AC 100-10 MG/5ML SYRP 061446 GUAIFENESIN-CODEINE Inactive TERBINAFINE HCL 250 MG TABS 1 qDay TERBINAFINE HCL 250 MG TABS 847598 TERBINAFINE HCL Inactive CHERATUSSIN AC 100-10 MG/5ML SYRP 1 tsp by mouth every 4 hours as needed for cough CHERATUSSIN AC 100-10 MG/5ML SYRP 645459 GUAIFENESIN-CODEINE Inactive ACETAMINOPHEN-CODEINE #3 300-30 MG TABS 1 PO Q 4-6 HRS PRN PAIN ACETAMINOPHEN-CODEINE #3 300-30 MG TABS 329328 ACETAMINOPHEN-CODEIN E Inactive CHERATUSSIN AC 100-10 MG/5ML SYRP 1 tsp by mouth every 4 hours as needed for cough CHERATUSSIN AC 100-10 MG/5ML SYRP 414725 GUAIFENESIN-CODEINE Inactive AUGMENTIN 875-125 MG TAB 1 tab by mouth twice daily with food 20 12/03/31 AUGMENTIN 875-125 MG TAB 757307 AMOXICILLIN-POT CLAVULA EFE Inactive CHERATUSSIN AC 100-10 MG/5ML SYRP take one tsp po Q 6hours prn c ough CHERATUSSIN AC 100-10 MG/5ML SYRP 501304 GUAIFENESIN-CO DEINE Inactive PROPRANOLOL HCL 60 MG TABS 1 PO Q D P ROPRANOLOL HCL 60 MG TABS 586462 PROPRANOLOL HCL Inactive TOPAMAX 50 MG TABS take 1 tab po BID for migraines. 12/07/10 TOPAMAX 50 MG TABS 666326 TOPIRAMATE Inactive TOPAMAX 25 MG TABS 1 qHS x 1 week, then 1 BID x 1 week, then 1 qAM and 2 qHS x 1 week, then 2 BID (migraine prevention) TOPAMAX 2 5 MG TABS 256353 TOPIRAMATE Inactive LYRICA 75 MG CAPS TAKE 1 CAPSULE BY MOUTH TWICE DAILY LYRICA 75 MG CAPS PREGABALIN Inactive SYMBICORT 160-4.5 MCG/ACT AERO 2 puffs bid with rinse after 2011 SYMBICORT 160-4.5 MCG/ACT AERO BUDESONIDE-FORMOT SÁNCHEZ FUMARATE Inactive PROMETHAZINE-CODEINE 6.25-10 MG/5ML SYRP 1 tsp by mouth ever y 8 hours prn cough PROMETHAZINE-CODEINE 6.25-10 MG/5ML SYRP 493998 PROMETHAZINE-CODEINE Inactive CYMBALTA 30 MG CPEP 1 cap by mouth daily CYMBALTA 30 MG CPEP 411537 DULOXETINE HCL Inactive PREMARIN 0.625 MG TABS TAKE 1 TAB BY MOUTH DAILY 07/25 PREMARIN 0.625 MG TABS ESTROGENS CONJUGATED Inactive CHERATUSSIN AC 100-10 MG/5ML SYRP 1 tsp by mouth every 4 hours as needed for cough CHERATUSSIN AC 100-10 MG/5ML SYRP 882979 GUAIFENESIN-CODEINE Inactive PROMETHAZINE-CODEINE 6.25-10 MG/5ML SYRP 1 tsp by mout h every 6 hours if needed for cough PROMETHAZINE-CODEINE 6.25-10 MG/5ML SYRP 698222 PROMETHAZINE-CODEINE Inactive CHERATUSSIN AC 100-10 MG/5ML SYRP 1 tsp by mouth every 4 hours as needed for cough CHERATUSSIN AC 100-10 MG/5ML SYRP 313697 GUAIFENESIN-CODEINE Inactive FLUTICASONE PROPIONATE 50 MCG/ACT SUSP 1 to 2 sprays each no stril daily FLUTICASONE PROPIONATE 50 MCG/ACT SUSP 9376948 FLUTICASONE PROPIONATE Inactive PREDNISONE 20 MG ORAL TABS 3 tab PO qd x 2d, 2 tab PO qd x 2d, 1 tab PO qd x 2d, 1/2 tab PO qd x 2d PREDNISONE 20 MG ORAL TABS 428783 PREDNISONE Inactive LEVOFLOXACIN 500 MG ORAL TABS 1 tab PO daily x 10 days LEVOFLOXACIN 500 MG ORAL TABS 855909 LEVOFLOXACIN Inactive CYCLOBENZAPRINE HCL 10 MG TABS 1 tablet by mouth BID prn had cherelle n CYCLOBENZAPRINE HCL 10 MG TABS 128539 CYCLOBENZAPRINE H CL Inactive ZOCOR 40 MG TAB 1 tab by mouth daily ZOCOR 40 M G TAB 838614 SIMVASTATIN Inactive TUSSIONEX PENNKINETIC ER 10-8 MG/5ML [...] empty FLUTICASONE PROPIONATE 50 MCG/ACT SUSP 17 10832 FLUTICASONE PROPIONATE Inactive TUSSIONEX PENNKINETIC ER 10-8 MG/5ML ORAL LQCR 5 mL PO q 12 hrs PRN cough TUSSIONEX PENNKINETIC ER 10-8 MG/5ML ORAL LQCR HYDROCOD POLST-CHLORPHEN POLST Inactive ZITHROMAX Z-REYNA 250 MG TABS 2 today, then 1 daily for 4 days 201 04/09/17 ZITHROMAX Z-REYNA 250 MG TABS 5802438 AZITHROMYCIN Inac tive CEFDINIR 300 MG CAPS [...] q days 2-5 ZITHROMAX 250 MG TAB 2052646 AZITHROMYCIN Inactive CEFDINIR 300 MG CAPS by mouth twice a day CEFDINIR 300 MG CAPS 915557 CEFDINIR Inactive PREDNISONE 20 MG TAB 2 tabs daily for 3 days, 1 t ab daily for 3 days, 1/2 tab daily for 2 days PREDNISONE 20 MG TAB 415497 PREDNISON E Inactive AVELOX 400 MG TABS 1 tab by mouth daily A VELOX 400 MG TABS 699574 MOXIFLOXACIN HCL Inactive AVELOX 400 MG TABS 1 tab by mouth daily A VELOX 400 MG TABS 702339 MOXIFLOXACIN HCL Inactive PREDNISONE 20 MG TAB Take 3 tabs daily for 3 days , 2 tabs daily for 3 days, 1 tab daily for 3 days, 1/2 tab daily for 3 days PREDNISONE 20 MG TAB 898368 PREDNISONE Inactive LEVAQUIN 500 MG TABS take one po QD LEVAQUIN 50 0 MG TABS 289401 LEVOFLOXACIN Inactive AZITHROMYCIN 250 MG TABS 2 po qd x 1 day, then 1 po qd x 4 days AZITHROMYCIN 250 MG TABS 5664593 AZITHROMYCIN Inactiv e MEDROL (REYNA) 4 MG TABS 6 tabs on day 1, 5 tabs on d ay 2, 4 tabs on day 3, 3 tabs on day 4, 2 tabs on day 5, 1 tab on day 6 MEDROL (REYNA) 4 MG TABS 073957 METHYLPREDNISOLONE Inactive CHERATUSSIN AC 100-10 MG/5ML SYRP 5ml po q6hr PRN Cough CHERATUSSIN AC 100-10 MG/5ML SYRP 440278 GUAIFENESIN-CODEINE Inacti ve TRIAMCINOLONE ACETONIDE 0.1 % CREA apply three times daily prn r beatrice TRIAMCINOLONE ACETONIDE 0.1 % CREA 6707031 TRIAMCINOLONE ACETONIDE Inactive AZITHROMYCIN 250 MG TABS 2 po qd x 1 day, then 1 po qd x 4 days AZITHROMYCIN 250 MG TABS 5822998 AZITHROMYCIN Inactiv e MEDROL (REYNA) 4 MG TABS 6 pills x 1 day, then 5 pill s x 1 day then 4 pills x 1 day, then 3 pills x 1 day, then 2 pills x 1 day, then 1 pill x 1 day, then stop MEDROL (REYNA) 4 MG TABS 831244 METHYLPREDNISOLONE Inactive AMOXICILLIN 500 MG CAP 1 tab by mouth 3 times daily x 10 days 20 13/03/08 AMOXICILLIN 500 MG CAP 819517 AMOXICILLIN Inactive AMOXICILLIN 500 MG CAP 1 tab by mouth 3 times daily x 10 days 20 14/04/28 AMOXICILLIN 500 MG CAP 873085 AMOXICILLIN Inactive ZITHROMAX 250 MG TAB 2 po today, then 1 po q days 2-5 ZITHROMAX 250 MG TAB 7257142 AZITHROMYCIN Inactive AUGMENTIN 875-125 MG TAB 1 po BID x 10 days AUGMENTIN 875- 125 MG TAB 517098 AMOXICILLIN-POT CLAVULANATE Inactive ZITHROMAX Z-REYNA 250 MG TABS 2 today, then 1 daily for 4 days 201 08/07/20 ZITHROMAX Z-REYNA 250 MG TABS 2229186 AZITHROMYCIN Inac tive ZITHROMAX 250 MG TAB 2 po today, then 1 po q days 2-5 ZITHROMAX 250 MG TAB 0560392 AZITHROMYCIN Inactive ZITHROMAX Z-REYNA 250 MG TABS 2 today, then 1 daily for 4 days 201 08/30/03 ZITHROMAX Z-REYNA 250 MG TABS 4309937 AZITHROMYCIN Inac tive CEFDINIR 300 MG CAPS 1 po BID x 10 days C EFDINIR 300 MG CAPS 715271 CEFDINIR Inactive ZITHROMAX 250 MG TAB 2 po today, then 1 po q days 2-5 ZITHROMAX 250 MG TAB 2282160 AZITHROMYCIN Inactive LEVAQUIN 500 MG TAB 1 tablet by mouth daily LEVAQUIN 500 MG TAB 498674 LEVOFLOXACIN Inactive SINGULAIR 10 MG TABS 1 po qday for allergies 2 SINGULAIR 10 MG TABS 20010504 MONTELUKAST SODIUM Inactive AMOXICILLIN 500 MG CAPS 2 po BID x 10 days AMOXICILLIN 500 MG CAPS 193746 AMOXICILLIN Inactive PREDNISONE 20 MG TAB 2 tabs daily for 3 days, 1 t ab daily for 3 days, 1/2 tab daily for 2 days PREDNISONE 20 MG TAB 475844 PREDNISON E Inactive ZITHROMAX Z-REYNA 250 MG TABS 2 today, then 1 daily for 4 days 201 09/29/14 ZITHROMAX Z-REYNA 250 MG TABS 5724088 AZITHROMYCIN Inac tive PREDNISONE 20 MG TAB 2 tabs daily for 3 days, 1 t ab daily for 3 days, 1/2 tab daily for 2 days PREDNISONE 20 MG TAB 061236 PREDNISON E Inactive Vital Signs Date Name [...] Measured Encounters Code Encounter Date Provider Facility CPT-03136 Level 3 Est. Patient 13:42:38 CDT Italo [facility] CPT-61842 Level 3 Est. Patient 13:23:51 CDT Diya cobian [facility] CPT-21886 Level 3 Est. Patient 14:22:19 RED CROSS EXECUTIVE DIRECTOR Diya cobian [facility] CPT-24873 Level 3 Est. Patient 10:11:46 CDT Carlton rich MD [facility] CPT-78262 Level 3 Est. Patient 17:29:43 CDT Elise Guerrero chelly LEI MAKER [facility] CPT-32162 Level 3 Est. Patient 11:58:06 CDT Elise Cesar spaulding LEI MAKER [facility] CPT-77327 Level 4 Est. Patient 14:36:51 CDT Carlton rich MD [facility]-80026 Level 3 Est. Patient 18:16:00 RED CROSS EXECUTIVE DIRECTOR Blaine [facility] CPT-60453 Level 3 Est. Patient 09:45:49 RED CROSS EXECUTIVE DIRECTOR Carlton rich MD [facility]-98060 Level 3 Est. Patient 13:19:20 CDT Carlton rich MD [facility] CPT-62111 Level 3 Est. Patient 13:06:43 CDT Rigde tam DO [facility] CPT-54362 Level 3 Est. Patient 10:03:07 CDT Perez Mora MD [facility] CPT-88684 Level 3 Est. Patient 19:50:35 RED CROSS EXECUTIVE DIRECTOR Carlton rich MD [facility] CPT-32266 Level 4 Est. Patient 18:05:01 RED CROSS EXECUTIVE DIRECTOR Carlton rich MD [facility] CPT-82032 Level 3 Est. Patient 10:45:55 RED CROSS EXECUTIVE DIRECTOR Hugo Restrepo MD [facility] CPT-91570 Level 3 Est. Patient 14:12:49 CDT Griffin lincoln [facility]-39972 Level 3 Est. Patient 17:37:24 CDT Carlton rich MD [facility] CPT-02996 Level 3 Est. Patient 16:51:54 CDT Carlton rich MD [facility] CPT-53063 Level 3 Est. Patient 12:18:11 CDT Hugo Restrepo MD [facility] CPT-71361 Level 3 Est. Patient 11:30:25 CDT Marcy crisostomo MD PhD [facility] CPT-40950 Level 3 Est. Patient 12:00:47 RED CROSS EXECUTIVE DIRECTOR Carlton rich MD [facility] CPT-85780 Level 3 Est. Patient 16:31:06 RED CROSS EXECUTIVE DIRECTOR Carlton rich MD [facility] CPT-43575 Level 3 Est. Patient 16:23:24 RED CROSS EXECUTIVE DIRECTOR Ridge tam [facility] CPT-06110 Level 3 Est. Patient 12:34:12 CDT Carlton rich MD [facility] CPT-90132 Level 2 Est. Patient 15:43:33 CDT Robi armstrong MD [facility] CPT-06585 Level 4 Est. Patient 14:04:44 CDT Carlton rich MD [facility] CPT-45566 Level 3 Est. Patient 05:47:59 CDT Ridge tam [facility] CPT-91237 Level 3 Est. Patient 13:12:53 RED CROSS EXECUTIVE DIRECTOR Carlton rich MD [facility] CPT-14001 Level 3 Est. Patient 14:26:53 CDT Hugo Restrepo MD [facility] Procedures Code Procedure Name Date Entry Date Standard Desc ription CPT-J0696 Rocephin 1gm Inj Solr 14:32:13 CDT CPT-J1020 Depo Medrol 60 mg (Methyl Prednisolone A cetate) 14:32:13 CDT CPT-J1100 Decadron 6mg (Dexamethasone) 14:32:13 CDT 2 CPT-06162 Hip bilat min 2V w AP pelvis 13:16:20 CDT 2 CPT-63337 Pelvis only 13:07:33 CDT CPT-74642 Spec Collection and Handling Fee 11:25:12 C DT CPT-56361 Fluzone Quadrivalent Intramuscular Suspe nsion 0.5 ML 14:31:55 CDT CPT-95428 Abx/Therapy Injection 13:28:47 [employer] EXEC[employer] DIRECTOR CPT-J2930 Solu Medrol 125 mg (Methyl Prednisolone Sodium Succinate) 12:00:47 [employer] EXEC[employer]IVE DIRECTOR CPT-64853 Venipuncture Draw Fee 11:33:31 CDT CPT-16103 EKG Trac and Interp 11:21:09 CDT CPT-73483 Chest 2V Frontal and Lat 11:21:09 CDT 12/15 CPT-58123 Venipuncture Draw Fee 08:02:34 CDT CPT-54317 Chest 2V Frontal and Lat 05:47:59 CDT 06/05
--- OUTSIDE RECORDS SUMMARY | 2019-10-08 09:49 | XMS REPORT | Clinical Summary ---
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 FLUTICASONE PRO PIONATE 79916683196 Active Elise Whitmore APRN Active ZITHROMAX 250 MG TAB 2 po today, then 1 po q days 2-5 AZITHROMYCIN 61896496732 No Longer Active Elise Whitmore APRN Acti ve XANAX 0.5 MG TABS one tablet by mouth daily prn anxiety ALPRAZOLAM 68945729307 Active Carlton Hu MD Active CYMBALTA 30 MG CPEP 1 cap by mouth daily for depression DULOXETINE HCL 68534211587 Active Carlton Hu MD Active CEFDINIR 300 MG CAPS 1 po BID x 10 days CEFDINI R 76596259229 No Longer Active Carlton Hu MD Active ZOCOR 40 MG TAB 1 tab by mouth daily SIMVASTATI N 79491235603 No Longer Active Carlton Hu MD Active CYCLOBENZAPRINE HCL 10 MG TABS 1 tablet by mouth BID prn had cherelle n CYCLOBENZAPRINE HCL 18883903371 No Longer Active Carlton Hu MD Active LEVOFLOXACIN 500 MG ORAL TABS 1 tab PO daily x 10 days LEVOFLOXACIN 12446314795 No Longer Active Carlton Hu MD Acti ve PREDNISONE 20 MG ORAL TABS 3 tab PO qd x 2d, 2 tab PO qd x 2d, 1 tab PO qd x 2d, 1/2 tab PO qd x 2d PREDNISONE 85829495360 No Longer Active Carlton Hu MD Active TUSSIONEX PENNKINETIC ER 10-8 MG/5ML ORAL LQCR 5 mL PO q 12 hrs PRN cough HYDROCOD POLST-CHLORPHEN POLST 08155640812 Active Zo meeks Active FLUTICASONE PROPIONATE 50 MCG/ACT SUSP 1 to 2 sprays each no stril daily FLUTICASONE PROPIONATE 44979404122 No Longer Active T jaz HERNANDEZ Active CHERATUSSIN AC 100-10 MG/5ML SYRP 1 tsp by mouth every 4 hours as needed for cough GUAIFENESIN-CODEINE 91784241831 No Longer Activ e Blaine HERNANDEZ Active PROMETHAZINE-CODEINE 6.25-10 MG/5ML SYRP 1 tsp by mout h every 6 hours if needed for cough PROMETHAZINE-CODEINE 03542543507 No Long er Active Blaine HERNANDEZ Active CHERATUSSIN AC 100-10 MG/5ML SYRP 1 tsp by mouth every 4 hours as needed for cough GUAIFENESIN-CODEINE 58412072148 No Longer Activ e Blaine HERNANDEZ Active ZITHROMAX Z-REYNA 250 MG TABS 2 today, then 1 daily for 4 days 201 08/30/03 AZITHROMYCIN 44656959961 No Longer Active Columba Raida Act nael ZITHROMAX 250 MG TAB 2 po today, then 1 po q days 2-5 AZITHROMYCIN 88517524206 No Longer Active Carlton Hu MD Acti ve ZITHROMAX Z-REYNA 250 MG TABS 2 today, then 1 daily for 4 days 201 08/07/20 AZITHROMYCIN 82402485898 No Longer Active Columba Raida Act nael AUGMENTIN 875-125 MG TAB 1 po BID x 10 days AMOXICILLIN- POT CLAVULANATE 21378872530 No Longer Active Diya De Guzman APRN Active ZITHROMAX 250 MG TAB 2 po today, then 1 po q days 2-5 AZITHROMYCIN 41912337595 No Longer Active Carlton Hu MD Acti ve TRAMADOL HCL 50 MG TABS 1 po tid with ES Tylenol TRAMADOL HCL 87400650108 Active Carlton Hu MD Active PREMARIN 0.625 MG TABS TAKE 1 TAB BY MOUTH DAILY 07/25 ESTROGENS CONJUGATED 91595751738 No Longer Active Ridge Bess DO Active CYMBALTA 30 MG CPEP 1 cap by mouth daily DULOXE SNEHA HCL 23657648604 No Longer Active Ridge Bess DO Active AMOXICILLIN 500 MG CAP 1 tab by mouth 3 times daily x 10 days 20 14/04/28 AMOXICILLIN 43789187722 No Longer Active Carlton Hu MD Active AMOXICILLIN 500 MG CAP 1 tab by mouth 3 times daily x 10 days 20 13/03/08 AMOXICILLIN 88679594611 No Longer Active Carlton Hu MD Active PROMETHAZINE-CODEINE 6.25-10 MG/5ML SYRP 1 tsp by mouth ever y 8 hours prn cough PROMETHAZINE-CODEINE 29521247672 No Longer Active Robert Hu MD Active MEDROL (REYNA) 4 MG TABS 6 pills x 1 day, then 5 pill s x 1 day then 4 pills x 1 day, then 3 pills x 1 day, then 2 pills x 1 day, then 1 pill x 1 day, then stop METHYLPREDNISOLONE 13769683476 No Longer Active Parris Mora MD Active AZITHROMYCIN 250 MG TABS 2 po qd x 1 day, then 1 po qd x 4 days AZITHROMYCIN 63911080393 No Longer Active Perez Mora MD Active SYMBICORT 160-4.5 MCG/ACT AERO 2 puffs bid with rinse after 2011 BUDESONIDE-FORMOTEROL FUMARATE 75942643189 No Longer Active Perez Mora MD Active LYRICA 75 MG CAPS TAKE 1 CAPSULE BY MOUTH TWICE DAILY 2013 PREGABALIN 74965753155 No Longer Active Carlton Hu MD Active LYRICA 100 MG CAPS Take 1 tab po BID for fibromyalgia PREGABALIN 70146472100 Active Elise Whitmore APRN Active TOPAMAX 25 MG TABS 1 qHS x 1 week, then 1 BID x 1 week, then 1 qAM and 2 qHS x 1 week, then 2 BID (migraine prevention) TOPIRAMAT E 68882676664 No Longer Active Jericacatrachita FUENTES Active TOPAMAX 50 MG TABS take 1 tab po BID for migraines. 12/07/10 TOPIRAMATE 45560991345 No Longer Active Jerica FUENTES Ac tive TOPAMAX 100 MG TABS Take 1 tablet po bid TOPIRAMATE 4999 0576212 Active Carlton Hu MD Active TRIAMCINOLONE ACETONIDE 0.1 % CREA apply three times daily prn r beatrice TRIAMCINOLONE ACETONIDE 62604912002 No Longer Active Carlton Hu MD Active PAXIL 40 MG TAB take 1 tab po qday for depression PAROXETINE HCL 56048342806 Active Elise Whitmore [employer] SUPERINTENDENT Active CHERATUSSIN AC 100-10 MG/5ML SYRP 5ml po q6hr PRN Cough GUAIFENESIN-CODEINE 80723332985 No Longer Active Carlton Hu MD Active MEDROL (REYNA) 4 MG TABS 6 tabs on day 1, 5 tabs on d ay 2, 4 tabs on day 3, 3 tabs on day 4, 2 tabs on day 5, 1 tab on day 6 METHYLPREDNISOLONE 18828496042 No Longer Active Perez Mora MD Active AZITHROMYCIN 250 MG TABS 2 po qd x 1 day, then 1 po qd x 4 days AZITHROMYCIN 20656570948 No Longer Active Perez Mora MD Active PROPRANOLOL HCL 60 MG TABS 1 PO Q D PROPRANOL OL HCL 53789242004 No Longer Active Perez Mora MD Active CHERATUSSIN AC 100-10 MG/5ML SYRP take one tsp po Q 6hours prn c ough GUAIFENESIN-CODEINE 29135083310 No Longer Active Perez Means Active AUGMENTIN 875-125 MG TAB 1 tab by mouth twice daily with food 20 12/03/31 AMOXICILLIN-POT CLAVULANATE 53883584019 No Longer Active Chanel Mora MD Active CHERATUSSIN AC 100-10 MG/5ML SYRP 1 tsp by mouth every 4 hours as needed for cough GUAIFENESIN-CODEINE 40952061483 No Longer Activ e Hugo Restrepo MD Active ACETAMINOPHEN-CODEINE #3 300-30 MG TABS 1 PO Q 4-6 HRS PRN PAIN ACETAMINOPHEN-CODEINE 29151924404 No Longer Active Hugo Restrepo MD Active LEVAQUIN 500 MG TABS take one po QD LEVOFLOXACI N 79533144054 No Longer Active Griffin HERNANDEZ Active PREDNISONE 20 MG TAB Take 3 tabs daily for 3 days , 2 tabs daily for 3 days, 1 tab daily for 3 days, 1/2 tab daily for 3 days P REDNISONE 39965457613 No Longer Active Carlton Hu MD Active AVELOX 400 MG TABS 1 tab by mouth daily MOXIFLO XACIN HCL 10598291568 No Longer Active Carlton Hu MD Active CHERATUSSIN AC 100-10 MG/5ML SYRP 1 tsp by mouth every 4 hours as needed for cough GUAIFENESIN-CODEINE 46260654492 No Longer Activ e Hugo Restrepo MD Active AVELOX 400 MG TABS 1 tab by mouth daily MOXIFLO XACIN HCL 45514342076 No Longer Active Marcy De La Rosa MD PhD Active TERBINAFINE HCL 250 MG TABS 1 qDay TERBINAF INE HCL 00766757958 No Longer Active Marcy De La Rosa MD PhD Active CHERATUSSIN AC 100-10 MG/5ML SYRP 1 tsp by mouth every 4 hours as needed for cough GUAIFENESIN-CODEINE 74775082064 No Longer Activ e Marcy De La Rosa MD PhD Active AVELOX 400 MG TABS 1 tab by mouth daily MOXIFLO XACIN HCL 26644137037 No Longer Active Marcy De La Rosa MD PhD Active HYDROCODONE-ACETAMINOPHEN 5-325 MG TABS 1 po q 6hr PRN cough 201 05/09/16 HYDROCODONE-ACETAMINOPHEN 66291288431 No Longer Active Marcy De La Rosa MD PhD Active PREDNISONE 20 MG TAB 2 tabs daily for 3 days, 1 t ab daily for 3 days, 1/2 tab daily for 2 days PREDNISONE 51732669014 No Longer Active Carlton Hu MD Active CEFDINIR 300 MG CAPS by mouth twice a day CEFDI ODILIA 63155927352 No Longer Active Carlton Hu MD Active HYDROCHLOROTHIAZIDE 25 MG TABS 1 TAB PO DAILY H YDROCHLOROTHIAZIDE 47515945857 Active Carlton Hu MD Active ACETAMINOPHEN-CODEINE #3 300-30 MG TABS 1 tablet po q 4-6hrs prn pain ACETAMINOPHEN-CODEINE 89387135728 No Longer Active Ridge Bess DO Active ZITHROMAX 250 MG TAB 2 po today, then 1 po q days 2-5 AZITHROMYCIN 21604729668 No Longer Active Carlton Hu MD Acti ve CHERATUSSIN AC 100-10 MG/5ML SYRP take 1 tsp po q4-6 hours prn c ough GUAIFENESIN-CODEINE 33691646713 No Longer Active Carlton Hu MD Active ACETAMINOPHEN-CODEINE #3 300-30 MG TABS 1 PO Q 4-6 HR PRN PAIN 2 ACETAMINOPHEN-CODEINE 86342192058 No Longer Active Carlton rich MD Active LORTAB 7.5-500 MG/15ML ELIX 7.5 ml po q 4 hour prn cough HYDROCODONE-ACETAMINOPHEN 51952754894 No Longer Active Carlton Hu MD Active PREDNISONE 20 MG TAB 1 po bid 3 days, then 1 po q day 3 days 201 05/03/07 PREDNISONE 38998649274 No Longer Active Carlton Hu MD Active ELMIRON 100 MG CAPS 2 tablets in the am and 1 tablet at hs PENTOSAN POLYSULFATE SODIUM 85752797885 Active Carlton Hu MD Ac tive CEFDINIR 300 MG CAPS by mouth twice a day CEFDI ODILIA 74309912424 No Longer Active Carlton Hu MD Active CEFDINIR 300 MG CAPS by mouth twice a day CEFDI ODILIA 87481928306 No Longer Active Carlton Hu MD Active CEFDINIR 300 MG CAPS by mouth twice a day CEFDI ODILIA 70409866703 No Longer Active Carlton Hu MD Active TESSALON PERLES 100 MG CAP 1 tablet by mouth 3 times daily a s needed for cough BENZONATATE 55397121724 No Longer Active Carlton bustamante MD Active CEFDINIR 300 MG CAPS by mouth twice a day CEFDI ODILIA 24720982116 No Longer Active Carlton Hu MD Active ZITHROMAX Z-REYNA 250 MG TABS 2 today, then 1 daily for 4 days 201 04/09/17 AZITHROMYCIN 35894497309 No Longer Active Hugo Restrepo MD Active TESSALON PERLES 100 MG CAP 1 tablet by mouth 3 times daily a s needed for cough TESSALON PERLES 100 MG CAP 905100 BENZONATATE I nactive PREDNISONE 20 MG TAB 1 po bid 3 days, then 1 po q day 3 days 201 05/03/07 PREDNISONE 20 MG TAB 735538 PREDNISONE Inactive LORTAB 7.5-500 MG/15ML ELIX 7.5 ml po q 4 hour prn cough LORTAB 7.5-500 MG/15ML ELIX HYDROCODONE-ACETAMINOPHEN Inacti ve ACETAMINOPHEN-CODEINE #3 300-30 MG TABS 1 PO Q 4-6 HR PRN PAIN 2 ACETAMINOPHEN-CODEINE #3 300-30 MG TABS 913810 ACETAMIN OPHEN-CODEINE Inactive CHERATUSSIN AC 100-10 MG/5ML SYRP take 1 tsp po q4-6 hours prn c ough CHERATUSSIN AC 100-10 MG/5ML SYRP 722721 GUAIFENESIN-CO DEINE Inactive ACETAMINOPHEN-CODEINE #3 300-30 MG TABS 1 tablet po q 4-6hrs prn pain ACETAMINOPHEN-CODEINE #3 300-30 MG TABS 416582 ACETAMIN OPHEN-CODEINE Inactive HYDROCODONE-ACETAMINOPHEN 5-325 MG TABS 1 po q 6hr PRN cough 201 05/09/16 HYDROCODONE-ACETAMINOPHEN 5-325 MG TABS 044357 HYDROCODONE-ACETAMINOPHEN Inactive AVELOX 400 MG TABS 1 tab by mouth daily A VELOX 400 MG TABS 390693 MOXIFLOXACIN HCL Inactive CHERATUSSIN AC 100-10 MG/5ML SYRP 1 tsp by mouth every 4 hours as needed for cough CHERATUSSIN AC 100-10 MG/5ML SYRP 636386 GUAIFENESIN-CODEINE Inactive TERBINAFINE HCL 250 MG TABS 1 qDay TERBINAFINE HCL 250 MG TABS 329982 TERBINAFINE HCL Inactive CHERATUSSIN AC 100-10 MG/5ML SYRP 1 tsp by mouth every 4 hours as needed for cough CHERATUSSIN AC 100-10 MG/5ML SYRP 617757 GUAIFENESIN-CODEINE Inactive ACETAMINOPHEN-CODEINE #3 300-30 MG TABS 1 PO Q 4-6 HRS PRN PAIN ACETAMINOPHEN-CODEINE #3 300-30 MG TABS 446346 ACETAMINOPHEN-CODEIN E Inactive CHERATUSSIN AC 100-10 MG/5ML SYRP 1 tsp by mouth every 4 hours as needed for cough CHERATUSSIN AC 100-10 MG/5ML SYRP 759697 GUAIFENESIN-CODEINE Inactive AUGMENTIN 875-125 MG TAB 1 tab by mouth twice daily with food 20 12/03/31 AUGMENTIN 875-125 MG TAB 686241 AMOXICILLIN-POT CLAVULA EFE Inactive CHERATUSSIN AC 100-10 MG/5ML SYRP take one tsp po Q 6hours prn c ough CHERATUSSIN AC 100-10 MG/5ML SYRP 071807 GUAIFENESIN-CO DEINE Inactive PROPRANOLOL HCL 60 MG TABS 1 PO Q D P ROPRANOLOL HCL 60 MG TABS 823967 PROPRANOLOL HCL Inactive TOPAMAX 50 MG TABS take 1 tab po BID for migraines. 12/07/10 TOPAMAX 50 MG TABS 766962 TOPIRAMATE Inactive TOPAMAX 25 MG TABS 1 qHS x 1 week, then 1 BID x 1 week, then 1 qAM and 2 qHS x 1 week, then 2 BID (migraine prevention) TOPAMAX 2 5 MG TABS 512576 TOPIRAMATE Inactive LYRICA 75 MG CAPS TAKE 1 CAPSULE BY MOUTH TWICE DAILY LYRICA 75 MG CAPS PREGABALIN Inactive SYMBICORT 160-4.5 MCG/ACT AERO 2 puffs bid with rinse after 2011 SYMBICORT 160-4.5 MCG/ACT AERO BUDESONIDE-FORMOT SÁNCHEZ FUMARATE Inactive PROMETHAZINE-CODEINE 6.25-10 MG/5ML SYRP 1 tsp by mouth ever y 8 hours prn cough PROMETHAZINE-CODEINE 6.25-10 MG/5ML SYRP 523212 PROMETHAZINE-CODEINE Inactive CYMBALTA 30 MG CPEP 1 cap by mouth daily CYMBALTA 30 MG CPEP 654752 DULOXETINE HCL Inactive PREMARIN 0.625 MG TABS TAKE 1 TAB BY MOUTH DAILY 07/25 PREMARIN 0.625 MG TABS ESTROGENS CONJUGATED Inactive CHERATUSSIN AC 100-10 MG/5ML SYRP 1 tsp by mouth every 4 hours as needed for cough CHERATUSSIN AC 100-10 MG/5ML SYRP 347964 GUAIFENESIN-CODEINE Inactive PROMETHAZINE-CODEINE 6.25-10 MG/5ML SYRP 1 tsp by mout h every 6 hours if needed for cough PROMETHAZINE-CODEINE 6.25-10 MG/5ML SYRP 954172 PROMETHAZINE-CODEINE Inactive CHERATUSSIN AC 100-10 MG/5ML SYRP 1 tsp by mouth every 4 hours as needed for cough CHERATUSSIN AC 100-10 MG/5ML SYRP 064739 GUAIFENESIN-CODEINE Inactive FLUTICASONE PROPIONATE 50 MCG/ACT SUSP 1 to 2 sprays each no stril daily FLUTICASONE PROPIONATE 50 MCG/ACT SUSP 133772 FLUTICASONE PROPIONATE Inactive PREDNISONE 20 MG ORAL TABS 3 tab PO qd x 2d, 2 tab PO qd x 2d, 1 tab PO qd x 2d, 1/2 tab PO qd x 2d PREDNISONE 20 MG ORAL TABS 061115 PREDNISONE Inactive LEVOFLOXACIN 500 MG ORAL TABS 1 tab PO daily x 10 days LEVOFLOXACIN 500 MG ORAL TABS 754548 LEVOFLOXACIN Inactive CYCLOBENZAPRINE HCL 10 MG TABS 1 tablet by mouth BID prn had cherelle n CYCLOBENZAPRINE HCL 10 MG TABS 880703 CYCLOBENZAPRINE H CL Inactive ZOCOR 40 MG TAB 1 tab by mouth daily ZOCOR 40 M G TAB 457628 SIMVASTATIN Inactive ZITHROMAX Z-REYNA 250 MG TABS 2 today, then 1 daily for 4 days 201 04/09/17 ZITHROMAX Z-REYNA 250 MG TABS 5053232 AZITHROMYCIN Inac tive CEFDINIR 300 MG CAPS [...] q days 2-5 ZITHROMAX 250 MG TAB 9435920 AZITHROMYCIN Inactive CEFDINIR 300 MG CAPS by mouth twice a day CEFDINIR 300 MG CAPS 20020704 CEFDINIR Inactive PREDNISONE 20 MG TAB 2 tabs daily for 3 days, 1 t ab daily for 3 days, 1/2 tab daily for 2 days PREDNISONE 20 MG TAB 145733 PREDNISON E Inactive AVELOX 400 MG TABS 1 tab by mouth daily A VELOX 400 MG TABS 238419 MOXIFLOXACIN HCL Inactive AVELOX 400 MG TABS 1 tab by mouth daily A VELOX 400 MG TABS 524489 MOXIFLOXACIN HCL Inactive PREDNISONE 20 MG TAB Take 3 tabs daily for 3 days , 2 tabs daily for 3 days, 1 tab daily for 3 days, 1/2 tab daily for 3 days PREDNISONE 20 MG TAB 927058 PREDNISONE Inactive LEVAQUIN 500 MG TABS take one po QD LEVAQUIN 50 0 MG TABS 461982 LEVOFLOXACIN Inactive AZITHROMYCIN 250 MG TABS 2 po qd x 1 day, then 1 po qd x 4 days AZITHROMYCIN 250 MG TABS 2846573 AZITHROMYCIN Inactiv e MEDROL (REYNA) 4 MG TABS 6 tabs on day 1, 5 tabs on d ay 2, 4 tabs on day 3, 3 tabs on day 4, 2 tabs on day 5, 1 tab on day 6 MEDROL (REYNA) 4 MG TABS 351642 METHYLPREDNISOLONE Inactive CHERATUSSIN AC 100-10 MG/5ML SYRP 5ml po q6hr PRN Cough CHERATUSSIN AC 100-10 MG/5ML SYRP 812181 GUAIFENESIN-CODEINE Inacti ve TRIAMCINOLONE ACETONIDE 0.1 % CREA apply three times daily prn r beatrice TRIAMCINOLONE ACETONIDE 0.1 % CREA 2209800 TRIAMCINOLONE ACETONIDE Inactive AZITHROMYCIN 250 MG TABS 2 po qd x 1 day, then 1 po qd x 4 days AZITHROMYCIN 250 MG TABS 2290679 AZITHROMYCIN Inactiv e MEDROL (REYNA) 4 MG TABS 6 pills x 1 day, then 5 pill s x 1 day then 4 pills x 1 day, then 3 pills x 1 day, then 2 pills x 1 day, then 1 pill x 1 day, then stop MEDROL (REYNA) 4 MG TABS 549373 METHYLPREDNISOLONE Inactive AMOXICILLIN 500 MG CAP 1 tab by mouth 3 times daily x 10 days 20 13/03/08 AMOXICILLIN 500 MG CAP 914733 AMOXICILLIN Inactive AMOXICILLIN 500 MG CAP 1 tab by mouth 3 times daily x 10 days 20 14/04/28 AMOXICILLIN 500 MG CAP 112923 AMOXICILLIN Inactive ZITHROMAX 250 MG TAB 2 po today, then 1 po q days 2-5 ZITHROMAX 250 MG TAB 0743035 AZITHROMYCIN Inactive AUGMENTIN 875-125 MG TAB 1 po BID x 10 days AUGMENTIN 875- 125 MG TAB 060890 AMOXICILLIN-POT CLAVULANATE Inactive ZITHROMAX Z-REYNA 250 MG TABS 2 today, then 1 daily for 4 days 201 08/07/20 ZITHROMAX Z-REYNA 250 MG TABS 7409105 AZITHROMYCIN Inac tive ZITHROMAX 250 MG TAB 2 po today, then 1 po q days 2-5 ZITHROMAX 250 MG TAB 5028928 AZITHROMYCIN Inactive ZITHROMAX Z-REYNA 250 MG TABS 2 today, then 1 daily for 4 days 201 08/30/03 ZITHROMAX Z-REYNA 250 MG TABS 8447528 AZITHROMYCIN Inac tive CEFDINIR 300 MG CAPS 1 po BID x 10 days C EFDINIR 300 MG CAPS 968664 CEFDINIR Inactive ZITHROMAX 250 MG TAB 2 po today, then 1 po q days 2-5 ZITHROMAX 250 MG TAB 6031381 AZITHROMYCIN Inactive LEVAQUIN 500 MG TAB 1 tablet by mouth daily LEVAQUIN 500 MG TAB 697687 LEVOFLOXACIN Inactive Vital Signs Date Name Value [...] Measured Encounters Code Encounter Date Provider Facility CPT-03485 Level 3 Est. Patient 10:11:46 CDT Carlton rich MD [facility] CPT-21943 Level 3 Est. Patient 17:29:[address] [facility] CPT-63386 Level 3 Est. Patient 11:58:[address] [facility] CPT-68940 Level 4 Est. Patient 14:36:51 CDT Carlton rich MD [facility] CPT-15237 Level 3 Est. Patient 18:16:00 [employer] Blaine HERNANDEZ [facility] CPT-47466 Level 3 Est. Patient 09:45:49 [employer]ESSION[employer] Carlton rich MD [facility] CPT-85551 Level 3 Est. Patient 13:19:20 CDT Carlton rich MD [facility] CPT-22878 Level 3 Est. Patient 13:06:43 CDT Ridge tam DO [facility]-90506 Level 3 Est. Patient 10:03:07 CDT Perez Mora MD [facility]-74184 Level 3 Est. Patient 19:50:35 [employer] Carlton rich MD [facility]-10108 Level 4 Est. Patient 18:05:01 [employer]ESSION[employer] Carlton rich MD [facility]-95461 Level 3 Est. Patient 10:45:55 [employer] Hugo Restrepo MD [facility]-20111 Level 3 Est. Patient 14:12:49 CDT Griffin HERNANDEZ [facility]-12171 Level 3 Est. Patient 17:37:24 CDT Carlton rich MD [facility]-72721 Level 3 Est. Patient 16:51:54 CDT Carlton rich MD [facility]-98138 Level 3 Est. Patient 12:18:11 CDT Hugo Restrepo MD [facility]-40957 Level 3 Est. Patient 11:30:25 CDT Marcy crisostomo MD PhD [facility]-58979 Level 3 Est. Patient 12:00:47 [employer] Carlton rich MD [facility]-61306 Level 3 Est. Patient 16:31:06 [employer]ESSION[employer] Carlton rich MD [facility] CPT-42633 Level 3 Est. Patient 16:23:24 [employer]AL Ridge tam DO [facility]-04741 Level 3 Est. Patient 12:34:12 CDT Carlton rich MD [facility]-79881 Level 2 Est. Patient 15:43:33 CDT Robi armstrong MD [facility]-76490 Level 4 Est. Patient 14:04:44 CDT Carlton rich MD [facility] CPT-43760 Level 3 Est. Patient 05:47:59 CDT Ridge Jaun Celeste anel DO [facility] CPT-14531 Level 3 Est. Patient 13:12:53 [employer] Carlton rich MD [facility] CPT-59459 Level 3 Est. Patient 14:26:53 CDT Hugo Restrepo MD [facility] Procedures Code Procedure Name Date Entry Date Standard Desc ription CPT-J0696 Rocephin 1gm Inj Solr 14:32:13 CDT CPT-J1020 Depo Medrol 60 mg (Methyl Prednisolone A cetate) 14:32:13 CDT CPT-J1100 Decadron 6mg (Dexamethasone) 14:32:13 CDT 2 CPT-46241 Hip bilat min 2V w AP pelvis 13:16:20 CDT 2 CPT-48124 Pelvis only 13:07:33 CDT CPT-03853 Spec Collection and Handling Fee 11:25:12 C DT CPT-08027 Fluzone Quadrivalent Intramuscular Suspe nsion 0.5 ML 14:31:55 CDT CPT-16204 Abx/Therapy Injection 13:28:47 [employer] CPT-J2930 Solu Medrol 125 mg (Methyl Prednisolone Sodium Succinate) 12:00:47 [employer] CPT-78848 Venipuncture Draw Fee 11:33:31 CDT CPT-12883 EKG Trac and Interp 11:21:09 CDT CPT-34455 Chest 2V Frontal and Lat 11:21:09 CDT 12/15 CPT-81662 Venipuncture Draw Fee 08:02:34 CDT CPT-30623 Chest 2V Frontal and Lat 05:47:59 CDT 06/05
--- OUTSIDE RECORDS SUMMARY | 2019-10-08 09:49 | XMS REPORT | Clinical Summary ---
Author Author Caitlin, Juliana Martinez Organization [facility] Address Unknown Phone Unavailable Allergies, Adverse [...] Hu MD Headache Dermatitis, atopic 691.8 Active aCrlton beltrán MD Other atopic dermatitis and related [...] sites Sinusitis 473.9 Active Diya De Guzman CORPORATE RECYCLING MANAGER Unspecified sinusitis (chronic) Bronchitis-Acute 466.0 Active Carlton Hu MD Acute bronchitis URI - acute 465.9 Active Elise Whitmore CORPORATE RECYCLING MANAGER Acute upper respiratory infections of unspecified site [...] po qday for allergies 2 MONTELUKAST SODIUM 83318770049 No Longer Active Carlton Hu MD Acti ve LEVAQUIN 500 MG TAB 1 tablet by mouth daily LEV OFLOXACIN 52313205082 No Longer Active Carlton Hu MD Active FLUTICASONE PROPIONATE 50 MCG/ACT SUSP 2 sprays each n ostril daily for 2 weeks, then 1 spray each nostril daily. FLUTICASONE PRO PIONATE 41130212031 Active Elise Whitmore APRN Active ZITHROMAX 250 MG TAB 2 po today, then 1 po q days 2-5 AZITHROMYCIN 66505546846 No Longer Active Elise Whitmore APRN Acti ve XANAX 0.5 MG TABS one tablet by mouth daily prn anxiety ALPRAZOLAM 05271634346 Active Elise Whitmore APRN Active CYMBALTA 30 MG CPEP 1 cap by mouth daily for depression DULOXETINE HCL 87584525166 Active Carlton Hu MD Active CEFDINIR 300 MG CAPS 1 po BID x 10 days CEFDINI R 34839852648 No Longer Active Carlton Hu MD Active ZOCOR 40 MG TAB 1 tab by mouth daily SIMVASTATI N 27913522633 No Longer Active Carlton Hu MD Active CYCLOBENZAPRINE HCL 10 MG TABS 1 tablet by mouth BID prn had cherelle n CYCLOBENZAPRINE HCL 32274677909 No Longer Active Carlton Hu MD Active LEVOFLOXACIN 500 MG ORAL TABS 1 tab PO daily x 10 days LEVOFLOXACIN 80290195305 No Longer Active Carlton Hu MD Acti ve PREDNISONE 20 MG ORAL TABS 3 tab PO qd x 2d, 2 tab PO qd x 2d, 1 tab PO qd x 2d, 1/2 tab PO qd x 2d PREDNISONE 95970972718 No Longer Active Carlton Hu MD Active TUSSIONEX PENNKINETIC ER 10-8 MG/5ML ORAL LQCR 5 mL PO q 12 hrs PRN cough HYDROCOD POLST-CHLORPHEN POLST 15049842693 Active Carlton Hu MD Active FLUTICASONE PROPIONATE 50 MCG/ACT SUSP 1 to 2 sprays each no stril daily FLUTICASONE PROPIONATE 77042267834 No Longer Active T jaz HERNANDEZ Active CHERATUSSIN AC 100-10 MG/5ML SYRP 1 tsp by mouth every 4 hours as needed for cough GUAIFENESIN-CODEINE 58286606942 No Longer Activ e Blaine HERNANDEZ Active PROMETHAZINE-CODEINE 6.25-10 MG/5ML SYRP 1 tsp by mout h every 6 hours if needed for cough PROMETHAZINE-CODEINE 52496988993 No Long er Active Blaine HERNANDEZ Active CHERATUSSIN AC 100-10 MG/5ML SYRP 1 tsp by mouth every 4 hours as needed for cough GUAIFENESIN-CODEINE 99616753927 No Longer Activ e Blaine HERNANDEZ Active ZITHROMAX Z-REYNA 250 MG TABS 2 today, then 1 daily for 4 days 201 08/30/03 AZITHROMYCIN 29045533382 No Longer Active Columba Raida Act nael ZITHROMAX 250 MG TAB 2 po today, then 1 po q days 2-5 AZITHROMYCIN 54029743745 No Longer Active Carlton Hu MD Acti ve ZITHROMAX Z-REYNA 250 MG TABS 2 today, then 1 daily for 4 days 201 08/07/20 AZITHROMYCIN 24298747650 No Longer Active Columba Raida Act nael AUGMENTIN 875-125 MG TAB 1 po BID x 10 days AMOXICILLIN- POT CLAVULANATE 75330800436 No Longer Active Diya De Guzman APRN Active ZITHROMAX 250 MG TAB 2 po today, then 1 po q days 2-5 AZITHROMYCIN 67215329073 No Longer Active Carlton Hu MD Acti ve TRAMADOL HCL 50 MG TABS 1 po tid with ES Tylenol TRAMADOL HCL 04545716394 Active Carlton Hu MD Active PREMARIN 0.625 MG TABS TAKE 1 TAB BY MOUTH DAILY 07/25 ESTROGENS CONJUGATED 79597391891 No Longer Active Ridge Bess DO Active CYMBALTA 30 MG CPEP 1 cap by mouth daily DULOXE SNEHA HCL 30704408236 No Longer Active Ridge Bess DO Active AMOXICILLIN 500 MG CAP 1 tab by mouth 3 times daily x 10 days 14/04/28 AMOXICILLIN 93036862427 No Longer Active Carlton Hu MD Active AMOXICILLIN 500 MG CAP 1 tab by mouth 3 times daily x 10 days 20 13/03/08 AMOXICILLIN 16560801438 No Longer Active Carlton Hu MD Active PROMETHAZINE-CODEINE 6.25-10 MG/5ML SYRP 1 tsp by mouth ever y 8 hours prn cough PROMETHAZINE-CODEINE 73694197859 No Longer Active Robert Hu MD Active MEDROL (REYNA) 4 MG TABS 6 pills x 1 day, then 5 pill s x 1 day then 4 pills x 1 day, then 3 pills x 1 day, then 2 pills x 1 day, then 1 pill x 1 day, then stop METHYLPREDNISOLONE 71058762266 No Longer Active Parris Mora MD Active AZITHROMYCIN 250 MG TABS 2 po qd x 1 day, then 1 po qd x 4 days AZITHROMYCIN 79804324705 No Longer Active Perez Mora MD Active SYMBICORT 160-4.5 MCG/ACT AERO 2 puffs bid with rinse after 2011 BUDESONIDE-FORMOTEROL FUMARATE 07964106061 No Longer Active Perez Mora MD Active LYRICA 75 MG CAPS TAKE 1 CAPSULE BY MOUTH TWICE DAILY 2013 PREGABALIN 70646696510 No Longer Active Carlton Hu MD Active LYRICA 100 MG CAPS Take 1 tab po BID for fibromyalgia PREGABALIN 49716528191 Active Elise Whitmore APRN Active TOPAMAX 25 MG TABS 1 qHS x 1 week, then 1 BID x 1 week, then 1 qAM and 2 qHS x 1 week, then 2 BID (migraine prevention) TOPIRAMAT E 12569004218 No Longer Active Jerica AGUILARA Active TOPAMAX 50 MG TABS take 1 tab po BID for migraines. 12/07/10 TOPIRAMATE 84165436765 No Longer Active Jerica Gomerissaer RMA Ac tive TOPAMAX 100 MG TABS Take 1 tablet po bid TOPIRAMATE 4999 4208789 Active Elise Whitmore APRN Active TRIAMCINOLONE ACETONIDE 0.1 % CREA apply three times daily prn r beatrice TRIAMCINOLONE ACETONIDE 17646436894 No Longer Active Carlton Hu MD Active PAXIL 40 MG TAB take 1 tab po qday for depression PAROXETINE HCL 83191164711 Active Elise Whitmore APRN Active CHERATUSSIN AC 100-10 MG/5ML SYRP 5ml po q6hr PRN Cough GUAIFENESIN-CODEINE 62710495729 No Longer Active Carlton Hu MD Active MEDROL (REYNA) 4 MG TABS 6 tabs on day 1, 5 tabs on d ay 2, 4 tabs on day 3, 3 tabs on day 4, 2 tabs on day 5, 1 tab on day 6 METHYLPREDNISOLONE 19516807532 No Longer Active Perez Mora MD Active AZITHROMYCIN 250 MG TABS 2 po qd x 1 day, then 1 po qd x 4 days AZITHROMYCIN 33343035110 No Longer Active Perez Mora MD Active PROPRANOLOL HCL 60 MG TABS 1 PO Q D PROPRANOL OL HCL 98899964598 No Longer Active Perez Mora MD Active CHERATUSSIN AC 100-10 MG/5ML SYRP take one tsp po Q 6hours prn c ough GUAIFENESIN-CODEINE 08692345041 No Longer Active Perez Means Active AUGMENTIN 875-125 MG TAB 1 tab by mouth twice daily with food 20 12/03/31 AMOXICILLIN-POT CLAVULANATE 22791241529 No Longer Active Chanel Mora MD Active CHERATUSSIN AC 100-10 MG/5ML SYRP 1 tsp by mouth every 4 hours as needed for cough GUAIFENESIN-CODEINE 59699084819 No Longer Activ e Hugo Restrepo MD Active ACETAMINOPHEN-CODEINE #3 300-30 MG TABS 1 PO Q 4-6 HRS PRN PAIN ACETAMINOPHEN-CODEINE 55348415199 No Longer Active Hugo Restrepo MD Active LEVAQUIN 500 MG TABS take one po QD LEVOFLOXACI N 81942258350 No Longer Active Griffin HERNANDEZ Active PREDNISONE 20 MG TAB Take 3 tabs daily for 3 days , 2 tabs daily for 3 days, 1 tab daily for 3 days, 1/2 tab daily for 3 days P REDNISONE 48359468712 No Longer Active Carlton Hu MD Active AVELOX 400 MG TABS 1 tab by mouth daily MOXIFLO XACIN HCL 46017181630 No Longer Active Carlton Hu MD Active CHERATUSSIN AC 100-10 MG/5ML SYRP 1 tsp by mouth every 4 hours as needed for cough GUAIFENESIN-CODEINE 83648611895 No Longer Activ e Hugo Restrepo MD Active AVELOX 400 MG TABS 1 tab by mouth daily MOXIFLO XACIN HCL 22442654070 No Longer Active Marcy De La Rosa MD PhD Active TERBINAFINE HCL 250 MG TABS 1 qDay TERBINAF INE HCL 76163467454 No Longer Active Marcy De La Rosa MD PhD Active CHERATUSSIN AC 100-10 MG/5ML SYRP 1 tsp by mouth every 4 hours as needed for cough GUAIFENESIN-CODEINE 53649223293 No Longer Activ e Marcy De La Rosa MD PhD Active AVELOX 400 MG TABS 1 tab by mouth daily MOXIFLO XACIN HCL 19573808228 No Longer Active Marcy De La Rosa MD PhD Active HYDROCODONE-ACETAMINOPHEN 5-325 MG TABS 1 po q 6hr PRN cough 201 05/09/16 HYDROCODONE-ACETAMINOPHEN 69675739395 No Longer Active Marcy De La Rosa MD PhD Active PREDNISONE 20 MG TAB 2 tabs daily for 3 days, 1 t ab daily for 3 days, 1/2 tab daily for 2 days PREDNISONE 61051999793 No Longer Active Carlton Hu MD Active CEFDINIR 300 MG CAPS by mouth twice a day CEFDI ODILIA 65856086808 No Longer Active Carlton Hu MD Active HYDROCHLOROTHIAZIDE 25 MG TABS 1 TAB PO DAILY H YDROCHLOROTHIAZIDE 44612489037 Active Carlton Hu MD Active ACETAMINOPHEN-CODEINE #3 300-30 MG TABS 1 tablet po q 4-6hrs prn pain ACETAMINOPHEN-CODEINE 74105585974 No Longer Active Ridge Bess DO Active ZITHROMAX 250 MG TAB 2 po today, then 1 po q days 2-5 AZITHROMYCIN 01246966425 No Longer Active Carlton Hu MD Acti ve CHERATUSSIN AC 100-10 MG/5ML SYRP take 1 tsp po q4-6 hours prn c ough GUAIFENESIN-CODEINE 70691007467 No Longer Active Carlton Hu MD Active ACETAMINOPHEN-CODEINE #3 300-30 MG TABS 1 PO Q 4-6 HR PRN PAIN 2 ACETAMINOPHEN-CODEINE 75151993068 No Longer Active Carlton rich MD Active LORTAB 7.5-500 MG/15ML ELIX 7.5 ml po q 4 hour prn cough HYDROCODONE-ACETAMINOPHEN 34837883564 No Longer Active Carlton Hu MD Active PREDNISONE 20 MG TAB 1 po bid 3 days, then 1 po q day 3 days 201 05/03/07 PREDNISONE 34344735035 No Longer Active Carlton Hu MD Active ELMIRON 100 MG CAPS 2 tablets in the am and 1 tablet at hs PENTOSAN POLYSULFATE SODIUM 14114385219 Active Carlton Hu MD Ac tive CEFDINIR 300 MG CAPS by mouth twice a day CEFDI ODILIA 23336130083 No Longer Active Carlton Hu MD Active CEFDINIR 300 MG CAPS by mouth twice a day CEFDI ODILIA 94995819897 No Longer Active Carlton Hu MD Active CEFDINIR 300 MG CAPS by mouth twice a day CEFDI ODILIA 95291127337 No Longer Active Carlton Hu MD Active TESSALON PERLES 100 MG CAP 1 tablet by mouth 3 times daily a s needed for cough BENZONATATE 82424315779 No Longer Active Carlton bustamante MD Active CEFDINIR 300 MG CAPS by mouth twice a day CEFDI ODILIA 36405874662 No Longer Active Carlton Hu MD Active ZITHROMAX Z-REYNA 250 MG TABS 2 today, then 1 daily for 4 days 201 04/09/17 AZITHROMYCIN 08516014642 No Longer Active Hugo Restrepo MD Active TESSALON PERLES 100 MG CAP 1 tablet by mouth 3 times daily a s needed for cough TESSALON PERLES 100 MG CAP 741977 BENZONATATE I nactive PREDNISONE 20 MG TAB 1 po bid 3 days, then 1 po q day 3 days 201 05/03/07 PREDNISONE 20 MG TAB 597042 PREDNISONE Inactive LORTAB 7.5-500 MG/15ML ELIX 7.5 ml po q 4 hour prn cough LORTAB 7.5-500 MG/15ML ELIX HYDROCODONE-ACETAMINOPHEN Inacti ve ACETAMINOPHEN-CODEINE #3 300-30 MG TABS 1 PO Q 4-6 HR PRN PAIN 2 ACETAMINOPHEN-CODEINE #3 300-30 MG TABS 911717 ACETAMIN OPHEN-CODEINE Inactive CHERATUSSIN AC 100-10 MG/5ML SYRP take 1 tsp po q4-6 hours prn c ough CHERATUSSIN AC 100-10 MG/5ML SYRP 474319 GUAIFENESIN-CO DEINE Inactive ACETAMINOPHEN-CODEINE #3 300-30 MG TABS 1 tablet po q 4-6hrs prn pain ACETAMINOPHEN-CODEINE #3 300-30 MG TABS 193252 ACETAMIN OPHEN-CODEINE Inactive HYDROCODONE-ACETAMINOPHEN 5-325 MG TABS 1 po q 6hr PRN cough 201 05/09/16 HYDROCODONE-ACETAMINOPHEN 5-325 MG TABS 727139 HYDROCODONE-ACETAMINOPHEN Inactive AVELOX 400 MG TABS 1 tab by mouth daily A VELOX 400 MG TABS 722375 MOXIFLOXACIN HCL Inactive CHERATUSSIN AC 100-10 MG/5ML SYRP 1 tsp by mouth every 4 hours as needed for cough CHERATUSSIN AC 100-10 MG/5ML SYRP 946696 GUAIFENESIN-CODEINE Inactive TERBINAFINE HCL 250 MG TABS 1 qDay TERBINAFINE HCL 250 MG TABS 883025 TERBINAFINE HCL Inactive CHERATUSSIN AC 100-10 MG/5ML SYRP 1 tsp by mouth every 4 hours as needed for cough CHERATUSSIN AC 100-10 MG/5ML SYRP 396316 GUAIFENESIN-CODEINE Inactive ACETAMINOPHEN-CODEINE #3 300-30 MG TABS 1 PO Q 4-6 HRS PRN PAIN ACETAMINOPHEN-CODEINE #3 300-30 MG TABS 739855 ACETAMINOPHEN-CODEIN E Inactive CHERATUSSIN AC 100-10 MG/5ML SYRP 1 tsp by mouth every 4 hours as needed for cough CHERATUSSIN AC 100-10 MG/5ML SYRP 602253 GUAIFENESIN-CODEINE Inactive AUGMENTIN 875-125 MG TAB 1 tab by mouth twice daily with food 20 12/03/31 AUGMENTIN 875-125 MG TAB 285725 AMOXICILLIN-POT CLAVULA EFE Inactive CHERATUSSIN AC 100-10 MG/5ML SYRP take one tsp po Q 6hours prn c ough CHERATUSSIN AC 100-10 MG/5ML SYRP 163857 GUAIFENESIN-CO DEINE Inactive PROPRANOLOL HCL 60 MG TABS 1 PO Q D P ROPRANOLOL HCL 60 MG TABS 636159 PROPRANOLOL HCL Inactive TOPAMAX 50 MG TABS take 1 tab po BID for migraines. 12/07/10 TOPAMAX 50 MG TABS 932762 TOPIRAMATE Inactive TOPAMAX 25 MG TABS 1 qHS x 1 week, then 1 BID x 1 week, then 1 qAM and 2 qHS x 1 week, then 2 BID (migraine prevention) TOPAMAX 2 5 MG TABS 142865 TOPIRAMATE Inactive LYRICA 75 MG CAPS TAKE 1 CAPSULE BY MOUTH TWICE DAILY LYRICA 75 MG CAPS PREGABALIN Inactive SYMBICORT 160-4.5 MCG/ACT AERO 2 puffs bid with rinse after 2011 SYMBICORT 160-4.5 MCG/ACT AERO BUDESONIDE-FORMOT SÁNCHEZ FUMARATE Inactive PROMETHAZINE-CODEINE 6.25-10 MG/5ML SYRP 1 tsp by mouth ever y 8 hours prn cough PROMETHAZINE-CODEINE 6.25-10 MG/5ML SYRP 531877 PROMETHAZINE-CODEINE Inactive CYMBALTA 30 MG CPEP 1 cap by mouth daily CYMBALTA 30 MG CPEP 123631 DULOXETINE HCL Inactive PREMARIN 0.625 MG TABS TAKE 1 TAB BY MOUTH DAILY 07/25 PREMARIN 0.625 MG TABS ESTROGENS CONJUGATED Inactive CHERATUSSIN AC 100-10 MG/5ML SYRP 1 tsp by mouth every 4 hours as needed for cough CHERATUSSIN AC 100-10 MG/5ML SYRP 178379 GUAIFENESIN-CODEINE Inactive PROMETHAZINE-CODEINE 6.25-10 MG/5ML SYRP 1 tsp by mout h every 6 hours if needed for cough PROMETHAZINE-CODEINE 6.25-10 MG/5ML SYRP 902569 PROMETHAZINE-CODEINE Inactive CHERATUSSIN AC 100-10 MG/5ML SYRP 1 tsp by mouth every 4 hours as needed for cough CHERATUSSIN AC 100-10 MG/5ML SYRP 630404 GUAIFENESIN-CODEINE Inactive FLUTICASONE PROPIONATE 50 MCG/ACT SUSP 1 to 2 sprays each no stril daily FLUTICASONE PROPIONATE 50 MCG/ACT SUSP 1312078 FLUTICASONE PROPIONATE Inactive PREDNISONE 20 MG ORAL TABS 3 tab PO qd x 2d, 2 tab PO qd x 2d, 1 tab PO qd x 2d, 1/2 tab PO qd x 2d PREDNISONE 20 MG ORAL TABS 757061 PREDNISONE Inactive LEVOFLOXACIN 500 MG ORAL TABS 1 tab PO daily x 10 days LEVOFLOXACIN 500 MG ORAL TABS 380900 LEVOFLOXACIN Inactive CYCLOBENZAPRINE HCL 10 MG TABS 1 tablet by mouth BID prn had cherelle n CYCLOBENZAPRINE HCL 10 MG TABS 298716 CYCLOBENZAPRINE H CL Inactive ZOCOR 40 MG TAB 1 tab by mouth daily ZOCOR 40 M G TAB 311194 SIMVASTATIN Inactive ZITHROMAX Z-REYNA 250 MG TABS 2 today, then 1 daily for 4 days 201 04/09/17 ZITHROMAX Z-REYNA 250 MG TABS 4318331 AZITHROMYCIN Inac tive CEFDINIR 300 MG CAPS [...] q days 2-5 ZITHROMAX 250 MG TAB 6762676 AZITHROMYCIN Inactive CEFDINIR 300 MG CAPS by mouth twice a day CEFDINIR 300 MG CAPS 20020704 CEFDINIR Inactive PREDNISONE 20 MG TAB 2 tabs daily for 3 days, 1 t ab daily for 3 days, 1/2 tab daily for 2 days PREDNISONE 20 MG TAB 891068 PREDNISON E Inactive AVELOX 400 MG TABS 1 tab by mouth daily A VELOX 400 MG TABS 043705 MOXIFLOXACIN HCL Inactive AVELOX 400 MG TABS 1 tab by mouth daily A VELOX 400 MG TABS 487272 MOXIFLOXACIN HCL Inactive PREDNISONE 20 MG TAB Take 3 tabs daily for 3 days , 2 tabs daily for 3 days, 1 tab daily for 3 days, 1/2 tab daily for 3 days PREDNISONE 20 MG TAB 677267 PREDNISONE Inactive LEVAQUIN 500 MG TABS take one po QD LEVAQUIN 50 0 MG TABS 917622 LEVOFLOXACIN Inactive AZITHROMYCIN 250 MG TABS 2 po qd x 1 day, then 1 po qd x 4 days AZITHROMYCIN 250 MG TABS 4856683 AZITHROMYCIN Inactiv e MEDROL (REYNA) 4 MG TABS 6 tabs on day 1, 5 tabs on d ay 2, 4 tabs on day 3, 3 tabs on day 4, 2 tabs on day 5, 1 tab on day 6 MEDROL (REYNA) 4 MG TABS 087880 METHYLPREDNISOLONE Inactive CHERATUSSIN AC 100-10 MG/5ML SYRP 5ml po q6hr PRN Cough CHERATUSSIN AC 100-10 MG/5ML SYRP 176110 GUAIFENESIN-CODEINE Inacti ve TRIAMCINOLONE ACETONIDE 0.1 % CREA apply three times daily prn r beatrice TRIAMCINOLONE ACETONIDE 0.1 % CREA 9703927 TRIAMCINOLONE ACETONIDE Inactive AZITHROMYCIN 250 MG TABS 2 po qd x 1 day, then 1 po qd x 4 days AZITHROMYCIN 250 MG TABS 5169703 AZITHROMYCIN Inactiv e MEDROL (REYNA) 4 MG TABS 6 pills x 1 day, then 5 pill s x 1 day then 4 pills x 1 day, then 3 pills x 1 day, then 2 pills x 1 day, then 1 pill x 1 day, then stop MEDROL (REYNA) 4 MG TABS 617088 METHYLPREDNISOLONE Inactive AMOXICILLIN 500 MG CAP 1 tab by mouth 3 times daily x 10 days 20 13/03/08 AMOXICILLIN 500 MG CAP 338461 AMOXICILLIN Inactive AMOXICILLIN 500 MG CAP 1 tab by mouth 3 times daily x 10 days 20 14/04/28 AMOXICILLIN 500 MG CAP 798433 AMOXICILLIN Inactive ZITHROMAX 250 MG TAB 2 po today, then 1 po q days 2-5 ZITHROMAX 250 MG TAB 6136870 AZITHROMYCIN Inactive AUGMENTIN 875-125 MG TAB 1 po BID x 10 days AUGMENTIN 875- 125 MG TAB 762860 AMOXICILLIN-POT CLAVULANATE Inactive ZITHROMAX Z-REYNA 250 MG TABS 2 today, then 1 daily for 4 days 201 08/07/20 ZITHROMAX Z-REYNA 250 MG TABS 9162221 AZITHROMYCIN Inac tive ZITHROMAX 250 MG TAB 2 po today, then 1 po q days 2-5 ZITHROMAX 250 MG TAB 7700230 AZITHROMYCIN Inactive ZITHROMAX Z-REYNA 250 MG TABS 2 today, then 1 daily for 4 days 201 08/30/03 ZITHROMAX Z-REYNA 250 MG TABS 0040046 AZITHROMYCIN Inac tive CEFDINIR 300 MG CAPS 1 po BID x 10 days C EFDINIR 300 MG CAPS 025035 CEFDINIR Inactive ZITHROMAX 250 MG TAB 2 po today, then 1 po q days 2-5 ZITHROMAX 250 MG TAB 3755795 AZITHROMYCIN Inactive LEVAQUIN 500 MG TAB 1 tablet by mouth daily LEVAQUIN 500 MG TAB 904823 LEVOFLOXACIN Inactive SINGULAIR 10 MG TABS 1 po qday for allergies 2 SINGULAIR 10 MG TABS 546784 MONTELUKAST SODIUM Inactive Vital Signs Date Name [...] Measured Encounters Code Encounter Date Provider Facility CPT-68642 Level 3 Est. Patient 10:11:46 CDT Carlton rich MD [facility] CPT-42498 Level 3 Est. Patient 17:29:43 CDT EliseJavier CORPORATE RECYCLING MANAGER [facility] CPT-77705 Level 3 Est. Patient 11:58:06 CDT [facility] CPT-59168 Level 4 Est. Patient 14:36:51 CDT Carlton rich MD [facility] CPT-99986 Level 3 Est. Patient 18:16:00 PLASTIC EXTRUDING MACHINE OPERATOR Blaine HERNANDEZ [facility] CPT-12689 Level 3 Est. Patient 09:45:49 PLASTIC EXTRUDING MACHINE OPERATOR Carlton rich MD [facility] CPT-11736 Level 3 Est. Patient 13:19:20 CDT Carlton rich MD [facility] CPT-50749 Level 3 Est. Patient 13:06:43 CDT Ridge tam DO [facility] CPT-49042 Level 3 Est. Patient 10:03:07 CDT Perez Mora MD [facility] CPT-78199 Level 3 Est. Patient 19:50:35 PLASTIC EXTRUDING MACHINE OPERATOR Carlton rich MD [facility] CPT-65084 Level 4 Est. Patient 18:05:01 PLASTIC EXTRUDING MACHINE OPERATOR Carlton rich MD [facility] CPT-21924 Level 3 Est. Patient 10:45:55 PLASTIC EXTRUDING MACHINE OPERATOR Hugo Restrepo MD [facility] CPT-96274 Level 3 Est. Patient 14:12:49 CDT Griffin HERNANDEZ [facility] CPT-53007 Level 3 Est. Patient 17:37:24 CDT Carlton rich MD [facility] CPT-11252 Level 3 Est. Patient 16:51:54 CDT Carlton rich MD [facility] CPT-18664 Level 3 Est. Patient 12:18:11 CDT Hugo Restrepo MD [facility] CPT-28902 Level 3 Est. Patient 11:30:25 CDT Marcy crisostomo MD PhD [facility] CPT-87264 Level 3 Est. Patient 12:00:47 PLASTIC EXTRUDING MACHINE OPERATOR Carlton rich MD [facility] CPT-63736 Level 3 Est. Patient 16:31:06 PLASTIC EXTRUDING MACHINE OPERATOR Carlton rich MD [facility] CPT-34005 Level 3 Est. Patient 16:23:24 PLASTIC EXTRUDING MACHINE OPERATOR Ridge tam DO [facility] CPT-98441 Level 3 Est. Patient 12:34:12 CDT Carlton rich MD [facility] CPT-39918 Level 2 Est. Patient 15:43:33 CDT Robi armstrong MD [facility] CPT-97390 Level 4 Est. Patient 14:04:44 CDT Carlton rich MD [facility] CPT-28176 Level 3 Est. Patient 05:47:59 CDT Ridge tam DO [facility] CPT-61818 Level 3 Est. Patient 13:12:53 PLASTIC EXTRUDING MACHINE OPERATOR Carlton rich MD [facility] CPT-60623 Level 3 Est. Patient 14:26:53 CDT Hugo Restrepo MD [facility] Procedures Code Procedure Name Date Entry Date Standard Desc ription CPT-J0696 Rocephin 1gm Inj Solr 14:32:13 CDT CPT-J1020 Depo Medrol 60 mg (Methyl Prednisolone A cetate) 14:32:13 CDT CPT-J1100 Decadron 6mg (Dexamethasone) 14:32:13 CDT 2 CPT-61344 Hip bilat min 2V w AP pelvis 13:16:20 CDT 2 CPT-09241 Pelvis only 13:07:33 CDT CPT-27376 Spec Collection and Handling Fee 11:25:12 C DT CPT-62633 Fluzone Quadrivalent Intramuscular Suspe nsion 0.5 ML 14:31:55 CDT CPT-75766 Abx/Therapy Injection 13:28:47 PLASTIC EXTRUDING MACHINE OPERATOR CPT-J2930 Solu Medrol 125 mg (Methyl Prednisolone Sodium Succinate) 12:00:47 PLASTIC EXTRUDING MACHINE OPERATOR CPT-52498 Venipuncture Draw Fee 11:33:31 CDT CPT-99413 EKG Trac and Interp 11:21:09 CDT CPT-62531 Chest 2V Frontal and Lat 11:21:09 CDT 12/15 CPT-01830 Venipuncture Draw Fee 08:02:34 CDT CPT-29755 Chest 2V Frontal and Lat 05:47:59 CDT 06/05
--- OUTSIDE RECORDS SUMMARY | 2019-10-08 09:50 | XMS REPORT | Clinical Summary ---
Author Author Caitlin, Juliana Martinez Organization [facility] Address Unknown Phone Unavailable Allergies, [...] URI 465.9 Inactive Ridge Bess DO Ac [place] upper respiratory infections of unspecified site Body Mass Index 35.0-35.9 Adult Refinement 2017 Ridge Bess DO Body Mass Index 35.0-35.9, adult BMI 34-34.9 Refinement Cherelle Torres RN Body Mass Index 35.0-35.9, adult BMI 35-35.9 Refinement David Marianneamisha RICEN Body Mass Index 35.0-35.9, adult BMI 34-34.9 Refinement May Vivar MD Body Mass Index 35.0-35.9, adult BMI 35-35.9 Refinement David Marianne [employer] Body Mass Index 35.0-35.9, adult BMI 33-33.9 Active David Marianne [employer] Body Mass Index 35.0-35.9, adult Upper respiratory infection, viral 465.9 Active 2 Perez Mora MD Acute upper respiratory infections of un specified site Obesity Class I (BMI 30-34.9) Refinement Jose Torres RN Obesity, unspecified Morbid obesity due to excess calories Refinemen t David Marianneamisha RICEN Obesity, unspecified Obesity [...] other nonspecific skin eruption 782.1 Active David Marianneamisha RICEN Rash and other nonspecific skin eruption Pharyngitis, acute / sore throat 462 Active 201 12/06/23 David Marianneamisha RICEN Acute pharyngitis Shingles 053.9 Active David Marianne [employer] Herpes zoster without mention of complication Allergic rhinitis, seasonal 477.0 Active Carlton Hu MD Allergic rhinitis due to pollen IBS (irritable bowel syndrome) 564.1 Active 01/06 Carlton Hu MD Irritable bowel syndrome GERD 530.81 Active Carlton Hu MD Esophageal reflux BRONCHITIS ICD-490 Inactive Hugo Restrepo MD 201 [...] Generic Name NDC Status Provider Patient Instruction DULOXETINE HCL 60 MG ORAL CAPSULE DELAYED RELEASE PART ICLES TAKE 1 CAPSULE BY MOUTH ONCE DAILY FOR PAIN AND MOOD DULOXETINE HCL 002 [id number] Active Carlton Hu MD Active TRAMADOL HCL 50 MG TABS TAKE 1 TABLET BY MOUTH THREE TIMES DAILY WITH EXTRA STRENGTH TYLENOL TRAMADOL HCL 96794743836 Active Carlton Hu MD Active ALPRAZOLAM 0.5 MG TABS TAKE 1 TABLET BY MOUTH ONCE DAILY NEEDED ALPRAZOLAM 57886084252 Active Carlton Hu MD Active GABAPENTIN 100 MG ORAL CAPSULE TAKE 1 CAPSULE BY MOUTH TWICE DAILY FOR FIBROMYALGIA GABAPENTIN 18008020404 Active Carlton Hu MD Active ELMIRON 100MG CAP TAKE 2 CAPSULES BY MOUTH IN THE MORNING AND 1 CAPSULE AT BEDTIME PENTOSAN POLYSULFATE SODIUM 67142080476 Active May Vivar MD Active TOPIRAMATE 100 MG TABS TAKE 1 TABLET BY MOUTH TWICE DAILY 1 TOPIRAMATE 65411523390 Active Carlton Hu MD Active ATORVASTATIN CALCIUM 10 MG ORAL TABLET 1 pill by mouth night ly, for cholesterol ATORVASTATIN CALCIUM 17927588506 Active Columba Parrish Active TRIAMCINOLONE ACETONIDE 0.1 % EXTERNAL CREAM apply bid spari ngly to rash TRIAMCINOLONE ACETONIDE 47092932331 No Longer Active Carlton Hu MD Active TYLENOL WITH CODEINE #3 300-30 MG ORAL TABLET ACETAMINOPHEN-CODEINE 84621351104 No Longer Active Carlton Hu MD Active TYLENOL WITH CODEINE #3 300-30 MG ORAL TABLET 1-2 po q6hr PRN Pa in ACETAMINOPHEN-CODEINE 69607567025 No Longer Active David Lopes AP RN Active ACYCLOVIR 800 MG ORAL TABLET 1 po 5 times daily x 7 days ACYCLOVIR 84293089613 No Longer Active David Marianne [employer] Active TOPAMAX 100 MG ORAL TABLET 1 by mouth twice daily TOPIRAMATE 68596044110 Active Carlton Hu MD Active TRIAMCINOLONE ACETONIDE 0.1 % EXTERNAL OINTMENT Apply to affected areas TID PRN Rash/Itching for up 2 weeks TRIAMCINOLONE ACETON KAYLA 04427924831 No Longer Active David Marianne [employer] Active AMOXICILLIN 500 MG ORAL CAPSULE 1 cap by mouth twice daily 10/21 AMOXICILLIN 41341900647 No Longer Active David Marianne [employer] Active CYMBALTA 30 MG ORAL CAPSULE DELAYED RELEASE PARTICLES 1 cap by mouth daily for depression DULOXETINE HCL 93332586312 No Longer Active Carlton Hu MD Active TUSSIONEX PENNKINETIC ER 10-8 MG/5ML ORAL SUSPENSION E XTENDED RELEASE 5ml po q12hr PRN Cough HYDROCOD POLST-CHLORPHEN POLST 95919352177 Active Carlton Hu MD Active PREDNISONE 20 MG ORAL TABLET Take 2 tabs day 1 and 2 and 1 t ab days 3 and 4 PREDNISONE 96984674209 No Longer Active David Marianne [employer] Active DOXYCYCLINE HYCLATE 100 MG ORAL CAPSULE 1 cap by mouth twice latasha ly DOXYCYCLINE HYCLATE 05588280090 No Longer Active David Marianne [employer] Active TOPAMAX 100 MG ORAL TABLET Take 1 tablet po bid TOPIRAMATE 09983023155 No Longer Active David Marianne [employer] Active TUSSIONEX PENNKINETIC ER 10-8 MG/5ML ORAL SUSPENSION E XTENDED RELEASE 5ml po q12hr PRN Cough HYDROCOD POLST-CHLORPHEN POLST 5 0962354867 No Longer Active David Marianne [employer] Active AUGMENTIN 875-125 MG ORAL TABLET 1 po BID x 10 days 20 18/04/16 AMOXICILLIN-POT CLAVULANATE 95986124475 No Longer Active David Marianne [employer] Active PREDNISONE 50 MG ORAL TABLET Take 50 mg dialy for 6 day s 7 PREDNISONE 25282334619 No Longer Active David Marianne [employer] Active TUSSIONEX PENNKINETIC ER 10-8 MG/5ML ORAL SUSPENSION E XTENDED RELEASE 5ml po q12hr PRN Cough HYDROCOD POLST-CHLORPHEN POLST 5 9947847644 No Longer Active Cherelle Torres RN Active PREDNISONE 20 MG ORAL TABLET two tabs by mouth today, then one tab by mouth days two and three and four PREDNISONE 67263290598 No Lo nger Active Cherelle oTrres RN Active AZITHROMYCIN 250 MG ORAL TABLET 2 po qd x 1 day, then 1 po q d x 4 days AZITHROMYCIN 86595829281 No Longer Active Ridge Bess DO Active PREDNISONE 20 MG ORAL TABLET 2 po qd x 5 days P REDNISONE 76923122017 No Longer Active Perez Mora MD Active PROAIR HFA 108 (90 BASE) MCG/ACT INHALATION AEROSOL SO LUTION 2 puffs four times a day as needed ALBUTEROL SULFATE 07934887003 No Long er Active Becky FUENTES Active ASPIRIN 81 MG ORAL TABLET 1 po qd ASPIRIN 22015316842 Active Carlton Hu MD Active PREDNISONE 20 MG ORAL TABLET 1 tab twice daily for 3 d ay, then one daily for three days PREDNISONE 51640132288 No Longer Active Carlton Hu MD Active AUGMENTIN 875-125 MG ORAL TABLET 1 po BID x 10 days 16/03/22 AMOXICILLIN-POT CLAVULANATE 87498356200 No Longer Active Elise Garcia [employer] Active TERBINAFINE HCL 250 MG ORAL TABLET 1 qDay for nail fungus 7 TERBINAFINE HCL 33026364074 No Longer Active Carlton Hu MD A ctive AMOXICILLIN 500 MG ORAL CAPSULE 1 cap by mouth three times a day AMOXICILLIN 40555740593 No Longer Active Carlton Hu MD Active ELMIRON 100 MG ORAL CAPSULE 2 tablets in the am and 1 tablet at hs PENTOSAN POLYSULFATE SODIUM 47605442918 No Longer Active Robert Hu MD Active MUCINEX D 60-600 MG ORAL TABLET EXTENDED RELEASE 12 HOUR 1 t ab po q am PSEUDOEPHEDRINE-GUAIFENESIN 22859236636 No Longer Act nael Carlton Hu MD Active MUCINEX DM MAXIMUM STRENGTH 60-1200 MG ORAL TABLET EXT ENDED RELEASE 12 HOUR 1 tab po q am DEXTROMETHORPHAN-GUAIFENESIN 77529231454 No Longer Active Carlton Hu MD Active TUSSIONEX PENNKINETIC ER 10-8 MG/5ML ORAL SUSPENSION E XTENDED RELEASE 5ml po q12hr PRN Cough HYDROCOD POLST-CHLORPHEN POLST 5 6562492504 No Longer Active Carlton Hu MD Active POTASSIUM CHLORIDE ER 20 MEQ ORAL TABLET EXTENDED RELE ASE Take 1 by mouth 4 times daily for 7 days POTASSIUM CHLORIDE 16473930230 No Longer Active Carlton Hu MD Active ZITHROMAX 250 MG ORAL TABLET 2 po today, then 1 po q days 2-5 20 14/09/04 AZITHROMYCIN 94023671448 No Longer Active Elise Garcia [employer] Active TUSSIONEX PENNKINETIC ER 10-8 MG/5ML ORAL SUSPENSION E XTENDED RELEASE 5 ml twice a day as needed for cough HYDROCOD POLST-CHLORPH EN POLST 84890700407 No Longer Active Elise Garcia APRN Active MONTELUKAST SODIUM 10 MG ORAL TABLET 1 po daily for Allergy MONTELUKAST SODIUM 01935468993 Active Carlton Hu MD Ac tive TUSSIONEX PENNKINETIC ER 10-8 MG/5ML ORAL SUSPENSION E XTENDED RELEASE 5ml po q12hr PRN Cough HYDROCOD POLST-CHLORPHEN POLST 5 5191525657 No Longer Active Hugo Restrepo MD Active LYRICA 100 MG ORAL CAPSULE Take 1 tab po BID for fibromyalgia 20 11/08/21 PREGABALIN 17472294896 No Longer Active Elise Garcia APRN A ctive PREDNISONE 20 MG ORAL TABLET 2 tabs daily for 3 days, 1 tab daily for 3 days, 1/2 tab daily for 2 days PREDNISONE 28682512205 No Longer Active Astridina Gege RICEN Active TUSSIONEX PENNKINETIC ER 10-8 MG/5ML ORAL SUSPENSION E XTENDED RELEASE 5 mL PO q 12 hrs PRN cough HYDROCOD POLST-CHLORPHEN POLST 185342 37708 No Longer Active Venullina Cesarl [employer] Active FLUTICASONE PROPIONATE 50 MCG/ACT NASAL SUSPENSION 2 s prays each nostril daily until bottle is empty FLUTICASONE PROPIONATE 353606833 99 No Longer Active Jillina Frazell [employer] Active ASMANEX 60 METERED DOSES 220 MCG/INH INHALATION AEROSO L POWDER BREATH ACTIVATED 1 puff bid with rinse after MOMETASONE FUROATE 3805400 4102 No Longer Active Jillina Frazell [employer] Active ZITHROMAX Z-REYNA 250 MG ORAL TABLET 2 today, then 1 daily for 4 d ays AZITHROMYCIN 99939903628 No Longer Active Elise Garcia APRN Active TUSSIONEX PENNKINETIC ER 10-8 MG/5ML ORAL SUSPENSION E XTENDED RELEASE 5ml po q12hr PRN Cough HYDROCOD POLST-CHLORPHEN POLST 5 5118101424 No Longer Active Elise Garcia [employer] Active PREDNISONE 20 MG ORAL TABLET 2 tabs daily for 3 days, 1 tab daily for 3 days, 1/2 tab daily for 2 days PREDNISONE 77438061461 No Longer Active Diya De Guzman [employer] Active AMOXICILLIN 500 MG ORAL CAPSULE 2 po BID x 10 days 201 09/29/08 AMOXICILLIN 07981588037 No Longer Active Diya De Guzman [employer] Act nael SINGULAIR 10 MG ORAL TABLET 1 po qday for allergies 20 14/01/12 MONTELUKAST SODIUM 88530413673 No Longer Active Carlton Hu MD Active LEVAQUIN 500 MG ORAL TABLET 1 tablet by mouth daily 20 13/09/24 LEVOFLOXACIN 75793050994 No Longer Active Carlton Hu MD Acti ve FLUTICASONE PROPIONATE 50 MCG/ACT NASAL SUSPENSION 2 s prays each nostril daily for 2 weeks, then 1 spray each nostril daily. FLUTICASONE PROPIONATE 02526588427 Active Carlton Hu MD Active ZITHROMAX 250 MG ORAL TABLET 2 po today, then 1 po q days 2-5 20 13/08/10 AZITHROMYCIN 80057307970 No Longer Active Elise Garcia APRN Active CEFDINIR 300 MG ORAL CAPSULE 1 po BID x 10 days CEFDINIR 47356744226 No Longer Active Carlton Hu MD Active ZOCOR 40 MG ORAL TABLET 1 tab by mouth daily SI MVASTATIN 52007783822 No Longer Active Carlton Hu MD Active CYCLOBENZAPRINE HCL 10 MG ORAL TABLET 1 tablet by mouth BID prn had pain CYCLOBENZAPRINE HCL 10391378808 No Longer Active Jayden Hu MD Active LEVOFLOXACIN 500 MG ORAL TABLET 1 tab PO daily x 10 days LEVOFLOXACIN 84141374006 No Longer Active Carlton Hu MD Acti ve PREDNISONE 20 MG ORAL TABLET 3 tab PO qd x 2d, 2 tab P O qd x 2d, 1 tab PO qd x 2d, 1/2 tab PO qd x 2d PREDNISONE 21913345323 No Lo nger Active Carlton Hu MD Active FLUTICASONE PROPIONATE 50 MCG/ACT NASAL SUSPENSION 1 t o 2 sprays each nostril daily FLUTICASONE PROPIONATE 47637213459 No Longer Ac tive Blaine HERNANDEZ Active CHERATUSSIN AC 100-10 MG/5ML ORAL SYRUP 1 tsp by mouth every 4 hours as needed for cough GUAIFENESIN-CODEINE 10569151464 No Longe r Active Blaine HERNANDEZ Active PROMETHAZINE-CODEINE 6.25-10 MG/5ML ORAL SYRUP 1 tsp b y mouth every 6 hours if needed for cough PROMETHAZINE-CODEINE 12729967289 No Longer Active Blaine HERNANDEZ Active CHERATUSSIN AC 100-10 MG/5ML ORAL SYRUP 1 tsp by mouth every 4 hours as needed for cough GUAIFENESIN-CODEINE 40589490456 No Longe r Active Blaine HERNANDEZ Active ZITHROMAX Z-REYNA 250 MG ORAL TABLET 2 today, then 1 daily for 4 d ays AZITHROMYCIN 81640825651 No Longer Active Columba Raida Act nael ZITHROMAX 250 MG ORAL TABLET 2 po today, then 1 po q days 2-5 20 14/03/21 AZITHROMYCIN 75001838909 No Longer Active Carlton Hu MD Active ZITHROMAX Z-REYNA 250 MG ORAL TABLET 2 today, then 1 daily for 4 d ays AZITHROMYCIN 81544698732 No Longer Active Columba Raida Act nael AUGMENTIN 875-125 MG ORAL TABLET 1 po BID x 10 days 13/01/20 AMOXICILLIN-POT CLAVULANATE 72216090315 No Longer Active Diya De Guzman APRN Active ZITHROMAX 250 MG ORAL TABLET 2 po today, then 1 po q days 2-5 20 12/08/14 AZITHROMYCIN 32379204656 No Longer Active Carlton Hu MD Active PREMARIN 0.625 MG ORAL TABLET TAKE 1 TAB BY MOUTH DAILY ESTROGENS CONJUGATED 70116912794 No Longer Active Ridge Bess DO A ctive CYMBALTA 30 MG ORAL CAPSULE DELAYED RELEASE PARTICLES 1 cap by mouth daily DULOXETINE HCL 92668564871 No Longer Active Ridge tam DO Active AMOXICILLIN 500 MG ORAL CAPSULE 1 tab by mouth 3 times daily x 10 days AMOXICILLIN 29423548315 No Longer Active Carlton bustamante MD Active AMOXICILLIN 500 MG ORAL CAPSULE 1 tab by mouth 3 times daily x 10 days AMOXICILLIN 32237649190 No Longer Active Carlton bustamante MD Active PROMETHAZINE-CODEINE 6.25-10 MG/5ML ORAL SYRUP 1 tsp b y mouth every 8 hours prn cough PROMETHAZINE-CODEINE 53037064047 No Longer Acti ve Carlton Hu MD Active MEDROL 4 MG ORAL TABLET THERAPY PACK 6 pills x 1 day, then 5 pills x 1 day then 4 pills x 1 day, then 3 pills x 1 day, then 2 pills x 1 day, then 1 pill x 1 day, then stop METHYLPREDNISOLONE 60892300503 No Long er Active Perez Mora MD Active AZITHROMYCIN 250 MG ORAL TABLET 2 po qd x 1 day, then 1 po q d x 4 days AZITHROMYCIN 69440738886 No Longer Active Perez Ambriz MD Active SYMBICORT 160-4.5 MCG/ACT INHALATION AEROSOL 2 puffs bid wit h rinse after BUDESONIDE-FORMOTEROL FUMARATE 01314766007 N o Longer Active Perez Mora MD Active LYRICA 75 MG ORAL CAPSULE TAKE 1 CAPSULE BY MOUTH TWICE DAILY PREGABALIN 32516915326 No Longer Active Carlton Hu MD Acti ve TOPAMAX 25 MG ORAL TABLET 1 qHS x 1 week, then 1 BID x 1 week, then 1 qAM and 2 qHS x 1 week, then 2 BID (migraine prevention) T OPIRAMATE 63397596249 No Longer Active Jerica FUENTES Active TOPAMAX 50 MG ORAL TABLET take 1 tab po BID for migraines. 07/02 TOPIRAMATE 80088908266 No Longer Active Jericacatrachita FUENTES Active TRIAMCINOLONE ACETONIDE 0.1 % EXTERNAL CREAM apply three roger es daily prn rash TRIAMCINOLONE ACETONIDE 11751698636 No Longer Active Carlton Hu MD Active PAXIL 40 MG ORAL TABLET take 1 tab po qday for depression 0 PAROXETINE HCL 09419779062 Active Carlton Hu MD Active CHERATUSSIN AC 100-10 MG/5ML ORAL SYRUP 5ml po q6hr PRN Cough 20 13/04/14 GUAIFENESIN-CODEINE 08283247885 No Longer Active Carlton Hu MD Active MEDROL 4 MG ORAL TABLET THERAPY PACK 6 tabs on day 1, 5 tabs on day 2, 4 tabs on day 3, 3 tabs on day 4, 2 tabs on day 5, 1 tab on day 6 2013 METHYLPREDNISOLONE 08120585259 No Longer Active Perez Mora MD Active AZITHROMYCIN 250 MG ORAL TABLET 2 po qd x 1 day, then 1 po q d x 4 days AZITHROMYCIN 22202922029 No Longer Active Perez Ambriz MD Active PROPRANOLOL HCL 60 MG ORAL TABLET 1 PO Q D PROPRANOLOL HCL 34983841956 No Longer Active Perez Mora MD Activ e CHERATUSSIN AC 100-10 MG/5ML ORAL SYRUP take one tsp po Q 6h ours prn cough GUAIFENESIN-CODEINE 66239085426 No Longer Active Zia Mora MD Active AUGMENTIN 875-125 MG ORAL TABLET 1 tab by mouth twice daily with food AMOXICILLIN-POT CLAVULANATE 66569606758 No Longer Act nael Perez Mora MD Active CHERATUSSIN AC 100-10 MG/5ML ORAL SYRUP 1 tsp by mouth every 4 hours as needed for cough GUAIFENESIN-CODEINE 65017433877 No Longe r Active Hugo Restrepo MD Active ACETAMINOPHEN-CODEINE #3 300-30 MG ORAL TABLET 1 PO Q 4-6 HRS NE N PAIN ACETAMINOPHEN-CODEINE 02958934163 No Longer Active Hugo Restrepo MD Active LEVAQUIN 500 MG ORAL TABLET take one po QD LEVO FLOXACIN 26686574352 No Longer Active Griffin HERNANDEZ Active PREDNISONE 20 MG ORAL TABLET Take 3 tabs daily for 3 d ays, 2 tabs daily for 3 days, 1 tab daily for 3 days, 1/2 tab daily for 3 days 11/07 PREDNISONE 67484521629 No Longer Active Carlton Hu MD Acti ve AVELOX 400 MG ORAL TABLET 1 tab by mouth daily MOXIFLOXACIN HCL 17966305992 No Longer Active Carlton Hu MD Active CHERATUSSIN AC 100-10 MG/5ML ORAL SYRUP 1 tsp by mouth every 4 hours as needed for cough GUAIFENESIN-CODEINE 68049335786 No Longe r Active Hugo Restrepo MD Active AVELOX 400 MG ORAL TABLET 1 tab by mouth daily MOXIFLOXACIN HCL 54456293125 No Longer Active Marcy De La Rosa MD PhD Active TERBINAFINE HCL 250 MG ORAL TABLET 1 qDay T ERBINAFINE HCL 89705456511 No Longer Active Marcy De La Rosa MD PhD Active CHERATUSSIN AC 100-10 MG/5ML ORAL SYRUP 1 tsp by mouth every 4 hours as needed for cough GUAIFENESIN-CODEINE 11380102135 No Longe r Active Marcy De La Rosa MD PhD Active AVELOX 400 MG ORAL TABLET 1 tab by mouth daily MOXIFLOXACIN HCL 11696029212 No Longer Active Marcy De La Rosa MD PhD Active HYDROCODONE-ACETAMINOPHEN 5-325 MG ORAL TABLET 1 po q 6hr PRN co ugh HYDROCODONE-ACETAMINOPHEN 41406802488 No Longer Active Marcy De La Rosa MD PhD Active PREDNISONE 20 MG ORAL TABLET 2 tabs daily for 3 days, 1 tab daily for 3 days, 1/2 tab daily for 2 days PREDNISONE 65460201086 No Longer Active Carlton Hu MD Active CEFDINIR 300 MG ORAL CAPSULE by mouth twice a day 2011 CEFDINIR 37540082696 No Longer Active Carlton Hu MD Acti ve HYDROCHLOROTHIAZIDE 25 MG ORAL TABLET 1 TAB PO DAILY HYDROCHLOROTHIAZIDE 53135743289 Active Carlton Hu MD A ctive ACETAMINOPHEN-CODEINE #3 300-30 MG ORAL TABLET 1 tablet po q 4-6 hrs prn pain ACETAMINOPHEN-CODEINE 30892210447 No Longer Active Ridge Bess DO Active ZITHROMAX 250 MG ORAL TABLET 2 po today, then 1 po q days 2-5 20 03/07/07 AZITHROMYCIN 75713725317 No Longer Active Carlton Hu MD Active CHERATUSSIN AC 100-10 MG/5ML ORAL SYRUP take 1 tsp po q4-6 h ours prn cough GUAIFENESIN-CODEINE 46668390337 No Longer Active Jayden Hu MD Active ACETAMINOPHEN-CODEINE #3 300-30 MG ORAL TABLET 1 PO Q 4-6 HR PRN PAIN ACETAMINOPHEN-CODEINE 19628467792 No Longer Active Arnol Hu MD Active LORTAB 7.5-500 MG/15ML ORAL ELIXIR 7.5 ml po q 4 hour prn cough HYDROCODONE-ACETAMINOPHEN 24075706896 No Longer Active Carlton Hu MD Active PREDNISONE 20 MG ORAL TABLET 1 po bid 3 days, then 1 po q day 3 days PREDNISONE 67437051691 No Longer Active Carlton Hu MD Active CEFDINIR 300 MG ORAL CAPSULE by mouth twice a day 2011 CEFDINIR 17336591139 No Longer Active Carlton Hu MD Acti ve CEFDINIR 300 MG ORAL CAPSULE by mouth twice a day 2010 CEFDINIR 56014651589 No Longer Active Carlton Hu MD Acti ve CEFDINIR 300 MG ORAL CAPSULE by mouth twice a day 2010 CEFDINIR 44099303026 No Longer Active Carlton Hu MD Acti ve TESSALON PERLES 100 MG ORAL CAPSULE 1 tablet by mouth 3 times daily as needed for cough BENZONATATE 06298900219 No Longer Active Carlton Hu MD Active CEFDINIR 300 MG ORAL CAPSULE by mouth twice a day 2010 CEFDINIR 57328307311 No Longer Active Carlton Hu MD Acti ve ZITHROMAX Z-REYNA 250 MG ORAL TABLET 2 today, then 1 daily for 4 d ays AZITHROMYCIN 12563738687 No Longer Active Hugo Restrepo MD Active TESSALON PERLES 100 MG ORAL CAPSULE 1 tablet by mouth 3 times daily as needed for cough TESSALON PERLES 100 MG ORAL CAPSULE 68389 7 BENZONATATE Inactive PREDNISONE 20 MG ORAL TABLET 1 po bid 3 days, then 1 po q day 3 days PREDNISONE 20 MG ORAL TABLET 775237 PREDNISONE Greer ctive LORTAB 7.5-500 MG/15ML ORAL ELIXIR 7.5 ml po q 4 hour prn cough LORTAB 7.5-500 MG/15ML ORAL ELIXIR HYDROCODONE-A CETAMINOPHEN Inactive ACETAMINOPHEN-CODEINE #3 300-30 MG ORAL TABLET 1 PO Q 4-6 HR PRN PAIN ACETAMINOPHEN-CODEINE #3 300-30 MG ORAL TABLET 9 02649 ACETAMINOPHEN-CODEINE Inactive CHERATUSSIN AC 100-10 MG/5ML ORAL SYRUP take 1 tsp po q4-6 h ours prn cough CHERATUSSIN AC 100-10 MG/5ML ORAL SYRUP 858980 GUAIFENESIN-CODEINE Inactive ACETAMINOPHEN-CODEINE #3 300-30 MG ORAL TABLET 1 tablet po q 4-6 hrs prn pain ACETAMINOPHEN-CODEINE #3 300-30 MG ORAL TABLET 680396 ACETAMINOPHEN-CODEINE Inactive HYDROCODONE-ACETAMINOPHEN 5-325 MG ORAL TABLET 1 po q 6hr PRN co ugh HYDROCODONE-ACETAMINOPHEN 5-325 MG ORAL TABLET 083513 HYDROCODONE-ACETAMINOPHEN Inactive AVELOX 400 MG ORAL TABLET 1 tab by mouth daily AVELOX 400 MG ORAL TABLET MOXIFLOXACIN HCL Inactive CHERATUSSIN AC 100-10 MG/5ML ORAL SYRUP 1 tsp by mouth every 4 hours as needed for cough CHERATUSSIN AC 100-10 MG/5ML ORAL SYRUP 9 91352 GUAIFENESIN-CODEINE Inactive TERBINAFINE HCL 250 MG ORAL TABLET 1 qDay 07/08 TERBINAFINE HCL 250 MG ORAL TABLET 527151 TERBINAFINE HCL Inactive CHERATUSSIN AC 100-10 MG/5ML ORAL SYRUP 1 tsp by mouth every 4 hours as needed for cough CHERATUSSIN AC 100-10 MG/5ML ORAL SYRUP 9 08158 GUAIFENESIN-CODEINE Inactive ACETAMINOPHEN-CODEINE #3 300-30 MG ORAL TABLET 1 PO Q 4-6 HRS NE N PAIN ACETAMINOPHEN-CODEINE #3 300-30 MG ORAL TABLET 743406 ACETAMINOPHEN-CODEINE Inactive CHERATUSSIN AC 100-10 MG/5ML ORAL SYRUP 1 tsp by mouth every 4 hours as needed for cough CHERATUSSIN AC 100-10 MG/5ML ORAL SYRUP 9 18108 GUAIFENESIN-CODEINE Inactive AUGMENTIN 875-125 MG ORAL TABLET 1 tab by mouth twice daily with food AUGMENTIN 875-125 MG ORAL TABLET AMOXICIL MADELINE-POT CLAVULANATE Inactive CHERATUSSIN AC 100-10 MG/5ML ORAL SYRUP take one tsp po Q 6h ours prn cough CHERATUSSIN AC 100-10 MG/5ML ORAL SYRUP 377295 GUAIFENESIN-CODEINE Inactive PROPRANOLOL HCL 60 MG ORAL TABLET 1 PO Q D PROPRANOLOL HCL 60 MG ORAL TABLET 081153 PROPRANOLOL HCL Inactive TOPAMAX 50 MG ORAL TABLET take 1 tab po BID for migraines. 07/02 TOPAMAX 50 MG ORAL TABLET 411965 TOPIRAMATE Inacti ve TOPAMAX 25 MG ORAL TABLET 1 qHS x 1 week, then 1 BID x 1 week, then 1 qAM and 2 qHS x 1 week, then 2 BID (migraine prevention) TOPAMAX 25 MG ORAL TABLET 410496 TOPIRAMATE Inactive LYRICA 75 MG ORAL CAPSULE TAKE 1 CAPSULE BY MOUTH TWICE DAILY LYRICA 75 MG ORAL CAPSULE 600991 PREGABALIN Inactive SYMBICORT 160-4.5 MCG/ACT INHALATION AEROSOL 2 puffs bid wit h rinse after SYMBICORT 160-4.5 MCG/ACT INHALATION AEROSOL BUDESONIDE- FORMOTEROL FUMARATE Inactive PROMETHAZINE-CODEINE 6.25-10 MG/5ML ORAL SYRUP 1 tsp b y mouth every 8 hours prn cough PROMETHAZINE-CODEINE 6.25-10 MG/ 5ML ORAL SYRUP 120318 PROMETHAZINE-CODEINE Inactive CYMBALTA 30 MG ORAL CAPSULE DELAYED RELEASE PARTICLES 1 cap by mouth daily CYMBALTA 30 MG ORAL CAPSULE DELAYED RELE ASE PARTICLES 112258 DULOXETINE HCL Inactive PREMARIN 0.625 MG ORAL TABLET TAKE 1 TAB BY MOUTH DAILY PREMARIN 0.625 MG ORAL TABLET ESTROGENS CONJUGATED Inactive CHERATUSSIN AC 100-10 MG/5ML ORAL SYRUP 1 tsp by mouth every 4 hours as needed for cough CHERATUSSIN AC 100-10 MG/5ML ORAL SYRUP 9 16631 GUAIFENESIN-CODEINE Inactive PROMETHAZINE-CODEINE 6.25-10 MG/5ML ORAL SYRUP 1 tsp b y mouth every 6 hours if needed for cough PROMETHAZINE-CODEINE 6.25-10 MG/5ML ORAL SYRUP 673537 PROMETHAZINE-CODEINE Inactive CHERATUSSIN AC 100-10 MG/5ML ORAL SYRUP 1 tsp by mouth every 4 hours as needed for cough CHERATUSSIN AC 100-10 MG/5ML ORAL SYRUP 9 86069 GUAIFENESIN-CODEINE Inactive FLUTICASONE PROPIONATE 50 MCG/ACT NASAL SUSPENSION 1 t o 2 sprays each nostril daily FLUTICASONE PROPIONATE 50 MCG/AC T NASAL SUSPENSION 6377978 FLUTICASONE PROPIONATE Inactive PREDNISONE 20 MG ORAL TABLET 3 tab PO qd x 2d, 2 tab P O qd x 2d, 1 tab PO qd x 2d, 1/2 tab PO qd x 2d PREDNISONE 20 MG ORAL TAB LET 206524 PREDNISONE Inactive LEVOFLOXACIN 500 MG ORAL TABLET 1 tab PO daily x 10 days LEVOFLOXACIN 500 MG ORAL TABLET 131547 LEVOFLOXACIN Inactive CYCLOBENZAPRINE HCL 10 MG ORAL TABLET 1 tablet by mouth BID prn had pain CYCLOBENZAPRINE HCL 10 MG ORAL TABLET 304046 CYCLOBENZAPRINE HCL Inactive ZOCOR 40 MG ORAL TABLET 1 tab by mouth daily 4 ZOCOR 40 MG ORAL TABLET 304995 SIMVASTATIN Inactive TUSSIONEX PENNKINETIC ER 10-8 MG/5ML [...] FLUTICASONE PROPIO EFE 50 MCG/ACT NASAL SUSPENSION 1507906 FLUTICASONE PROPIONATE Inactive TUSSIONEX PENNKINETIC ER 10-8 MG/5ML ORAL SUSPENSION E XTENDED RELEASE 5 mL PO q 12 hrs PRN cough TUSSIONEX PENNKINETI C ER 10-8 MG/5ML ORAL SUSPENSION EXTENDED RELEASE HYDROCOD POLST-CHLORPHEN POLST I nactive LYRICA 100 MG ORAL CAPSULE Take 1 tab po BID for fibromyalgia 20 11/08/21 LYRICA 100 MG ORAL CAPSULE [id number] PREGABALIN Inact nael TUSSIONEX PENNKINETIC ER 10-8 [...] three days PREDNISONE 20 MG ORAL TABLET [id number] PREDNIS ONE Inactive PROAIR HFA 108 (90 BASE) MCG/ACT INHALATION AEROSOL SO LUTION 2 puffs four times a day as needed PROAIR HFA 108 (90 B ASE) MCG/ACT INHALATION AEROSOL SOLUTION ALBUTEROL SULFATE Inactive PREDNISONE 20 MG ORAL TABLET two tabs by mouth today, then one tab by mouth days two and three and four PREDNISONE 20 MG ORAL TAB LET 228833 PREDNISONE Inactive TUSSIONEX PENNKINETIC ER 10-8 MG/5ML [...] bid 04/20 TOPAMAX 100 MG ORAL TABLET 402205 TOPIRAMATE Inactive CYMBALTA 30 MG ORAL CAPSULE DELAYED RELEASE PARTICLES 1 cap by mouth daily for depression CYMBALTA 30 MG ORAL CAPSULE DELAYED RELEASE PARTICLES 592689 DULOXETINE HCL Inactive TYLENOL WITH CODEINE #3 300-30 MG ORAL TABLET 1-2 po q6hr PRN Pa in TYLENOL WITH CODEINE #3 300-30 MG ORAL TABLET 108109 ACETAMINOPHEN-CODEINE Inactive TYLENOL WITH CODEINE #3 300-30 MG ORAL TABLET TYLENOL WITH CODEINE #3 300-30 MG ORAL TABLET 341870 ACETAMINOPHEN-CODEINE Inactive TRIAMCINOLONE ACETONIDE 0.1 % EXTERNAL CREAM apply bid spari ngly to rash TRIAMCINOLONE ACETONIDE 0.1 % EXTERNAL CREAM 101 4314 TRIAMCINOLONE ACETONIDE Inactive ZITHROMAX Z-REYNA 250 MG ORAL TABLET 2 today, then 1 daily for 4 d ays ZITHROMAX Z-REYNA 250 MG ORAL TABLET 868690 AZITHROMYCIN Inactive CEFDINIR 300 MG ORAL CAPSULE by mouth twice a day 2010 CEFDINIR 300 MG ORAL CAPSULE 412354 CEFDINIR Inactive CEFDINIR 300 MG ORAL CAPSULE by mouth twice a day 2010 CEFDINIR 300 MG ORAL CAPSULE 341708 CEFDINIR Inactive CEFDINIR 300 MG ORAL CAPSULE by mouth twice a day 2010 CEFDINIR 300 MG ORAL CAPSULE 065642 CEFDINIR Inactive CEFDINIR 300 MG ORAL CAPSULE by mouth twice a day 2011 CEFDINIR 300 MG ORAL CAPSULE 660494 CEFDINIR Inactive ZITHROMAX 250 MG ORAL TABLET 2 po today, then 1 po q days 2-5 20 03/07/07 ZITHROMAX 250 MG ORAL TABLET 840148 AZITHROMYCIN [place] [facility] CEFDINIR 300 MG ORAL CAPSULE by mouth twice a day 2011 CEFDINIR 300 MG ORAL CAPSULE 411313 CEFDINIR Inactive PREDNISONE 20 MG ORAL TABLET 2 tabs daily for 3 days, 1 tab daily for 3 days, 1/2 tab daily for 2 days PREDNISONE 20 MG ORAL T ABLET 026608 PREDNISONE Inactive AVELOX 400 MG ORAL TABLET [...] days 11/07 PREDNISONE 20 MG ORAL TABLET 054931 PREDNISONE Inactive LEVAQUIN 500 MG ORAL TABLET take one po QD LEVAQUIN 500 MG ORAL TABLET 221334 LEVOFLOXACIN Inactive AZITHROMYCIN 250 MG ORAL TABLET 2 po qd x 1 day, then 1 po q d x 4 days AZITHROMYCIN 250 MG ORAL TABLET 375790 AZITHROMY GIOVANNI Inactive MEDROL 4 MG ORAL TABLET THERAPY PACK 6 tabs on day 1, 5 tabs on day 2, 4 tabs on day 3, 3 tabs on day 4, 2 tabs on day 5, 1 tab on day 6 2013 MEDROL 4 MG ORAL TABLET THERAPY PACK 533751 METHYLPREDNISOLONE [facility] CHERATUSSIN AC 100-10 MG/5ML ORAL SYRUP 5ml po q6hr PRN Cough 20 13/04/14 CHERATUSSIN AC 100-10 MG/5ML ORAL SYRUP 253880 GUAIFENE SIN-CODEINE Inactive TRIAMCINOLONE ACETONIDE 0.1 % EXTERNAL CREAM apply three roger es daily prn rash TRIAMCINOLONE ACETONIDE 0.1 % EXTERNAL CREAM 101 4314 TRIAMCINOLONE ACETONIDE Inactive AZITHROMYCIN 250 MG ORAL TABLET 2 po qd x 1 day, then 1 po q d x 4 days AZITHROMYCIN 250 MG ORAL TABLET 576373 AZITHROMY GIOVANNI Inactive MEDROL 4 MG ORAL TABLET THERAPY PACK 6 pills x 1 day, then 5 pills x 1 day then 4 pills x 1 day, then 3 pills x 1 day, then 2 pills x 1 day, then 1 pill x 1 day, then stop MEDROL 4 MG ORAL TABLET THERAPY PACK 438344 METHYLPREDNISOLONE Inactive AMOXICILLIN 500 MG ORAL CAPSULE 1 tab by mouth 3 times daily x 10 days AMOXICILLIN 500 MG ORAL CAPSULE 154491 AMOXICILL IN Inactive AMOXICILLIN 500 MG ORAL CAPSULE 1 tab by mouth 3 times daily x 10 days AMOXICILLIN 500 MG ORAL CAPSULE 845287 AMOXICILL IN Inactive ZITHROMAX 250 MG ORAL TABLET 2 po today, then 1 po q days 2-5 20 12/08/14 ZITHROMAX 250 MG ORAL TABLET 155850 AZITHROMYCIN [place] [facility] AUGMENTIN 875-125 MG ORAL TABLET 1 po BID x 10 days 13/01/20 AUGMENTIN 875-125 MG ORAL TABLET AMOXICILLIN-POT CLAVULANATE Inactive ZITHROMAX Z-REYNA 250 MG ORAL TABLET 2 today, then 1 daily for 4 d ays ZITHROMAX Z-REYNA 250 MG ORAL TABLET 103721 AZITHROMYCIN Inactive ZITHROMAX 250 MG ORAL TABLET 2 po today, then 1 po q days 2-5 20 14/03/21 ZITHROMAX 250 MG ORAL TABLET 829655 AZITHROMYCIN [place] [facility] ZITHROMAX Z-REYNA 250 MG ORAL TABLET 2 today, then 1 daily for 4 d ays ZITHROMAX Z-REYNA 250 MG ORAL TABLET 174643 AZITHROMYCIN Inactive CEFDINIR 300 MG ORAL CAPSULE 1 po BID x 10 days 06/21 CEFDINIR 300 MG ORAL CAPSULE 241235 CEFDINIR Inactive ZITHROMAX 250 MG ORAL TABLET 2 po today, then 1 po q days 2-5 20 13/08/10 ZITHROMAX 250 MG ORAL TABLET 165837 AZITHROMYCIN [place] [facility] LEVAQUIN 500 MG ORAL TABLET 1 tablet by mouth daily 20 13/09/24 LEVAQUIN 500 MG ORAL TABLET 19971102 LEVOFLOXACIN Inactive SINGULAIR 10 MG ORAL TABLET 1 po qday for allergies 20 14/01/12 SINGULAIR 10 MG ORAL TABLET 20010504 MONTELUKAST SODIUM Inactive AMOXICILLIN 500 MG ORAL CAPSULE 2 po BID x 10 days 201 09/29/08 AMOXICILLIN 500 MG ORAL CAPSULE 590338 AMOXICILLIN Inactive PREDNISONE 20 MG ORAL TABLET 2 tabs daily for 3 days, 1 tab daily for 3 days, 1/2 tab daily for 2 days PREDNISONE 20 MG ORAL T ABLET 028239 PREDNISONE Inactive ZITHROMAX Z-REYNA 250 MG ORAL TABLET 2 today, then 1 daily for 4 d ays ZITHROMAX Z-REYNA 250 MG ORAL TABLET 999940 AZITHROMYCIN Inactive PREDNISONE 20 MG ORAL TABLET 2 tabs daily for 3 days, 1 tab daily for 3 days, 1/2 tab daily for 2 days PREDNISONE 20 MG ORAL T ABLET 487788 PREDNISONE Inactive ZITHROMAX 250 MG ORAL TABLET 2 po today, then 1 po q days 2-5 20 14/09/04 ZITHROMAX 250 MG ORAL TABLET 833363 AZITHROMYCIN [facility] AMOXICILLIN 500 MG ORAL CAPSULE 1 cap by mouth three times a day AMOXICILLIN 500 MG ORAL CAPSULE 234873 AMOXICILLIN Inactive TERBINAFINE HCL 250 MG ORAL TABLET 1 qDay for nail fungus 7 TERBINAFINE HCL 250 MG ORAL TABLET 180799 TERBINAFINE HCL Inact nael AUGMENTIN 875-125 MG ORAL TABLET 1 po BID x 10 days 16/03/22 AUGMENTIN 875-125 MG ORAL TABLET AMOXICILLIN-POT CLAVULANATE Inactive PREDNISONE 20 MG ORAL TABLET 2 po qd x 5 days PREDNISONE 20 MG ORAL TABLET 534399 PREDNISONE Inactive AZITHROMYCIN 250 MG ORAL TABLET 2 po qd x 1 day, then 1 po q d x 4 days AZITHROMYCIN 250 MG ORAL TABLET 327738 AZITHROMY GIOVANNI Inactive PREDNISONE 50 MG ORAL TABLET Take 50 mg dialy for 6 day s 7 PREDNISONE 50 MG ORAL TABLET 450637 PREDNISONE Inactive AUGMENTIN 875-125 MG ORAL TABLET 1 po BID x 10 days 18/04/16 AUGMENTIN 875-125 MG ORAL TABLET AMOXICILLIN-POT CLAVULANATE Inactive DOXYCYCLINE HYCLATE 100 MG ORAL CAPSULE 1 cap by mouth twice latasha ly DOXYCYCLINE HYCLATE 100 MG ORAL CAPSULE 4481866 DOXYCYCL INE HYCLATE Inactive PREDNISONE 20 MG ORAL TABLET Take 2 tabs day 1 and 2 and 1 t ab days 3 and 4 PREDNISONE 20 MG ORAL TABLET 778200 PREDNISONE Inactive AMOXICILLIN 500 MG ORAL CAPSULE 1 cap by mouth twice daily 10/21 AMOXICILLIN 500 MG ORAL CAPSULE 265444 AMOXICILLIN Inactive TRIAMCINOLONE ACETONIDE 0.1 % EXTERNAL OINTMENT Apply to affected areas TID PRN Rash/Itching for up 2 weeks TRIAMCINOLON E ACETONIDE 0.1 % EXTERNAL OINTMENT 2641329 TRIAMCINOLONE ACETONIDE Inactive ACYCLOVIR 800 MG ORAL TABLET 1 po 5 times daily x 7 days ACYCLOVIR 800 MG ORAL TABLET 256179 ACYCLOVIR Inactive Vital Signs Date Name Value [...] d blood pressure, diastolic 69 mm[Hg] BP srinivaasn blood pressure, systolic 101 mm[Hg] BP sys [...] Panel - Chemistry sodium, serum 137 mmol/L 079-059 2369/10/08 carbon dioxide, venous blood 29.9 mmol/L 21.0-32 [...] 0.50 mg/dL 0.00-1.00 cholesterol, serum 324 mg/dL [phone]/10/08 triglyceride, serum, fasting 130 mg/dL 30-200 HDL [...] negative Encounters Code Encounter Date Provider Facility CPT-[id number] Vst-Est Level IV 09:06:31 C ESAU Hu MD [facility] CPT-70567 Level 3 Est. Patient 14:16:41 CDT David Tin dle [facility] CPT-66603 Level 3 Est. Patient 13:57:55 CDT David Tin dle [facility] CPT-69274 Level 3 Est. Patient 16:08:07 CDT David Tin dle [facility] CPT-00601 Level 3 Est. Patient 16:53:54 CDT May haas MD [facility]-96161 [id number] Vst-Est Level IV 08:41:[address] Carlton Hu MD [facility] CPT-45621 Level 3 Est. Patient 09:46:49 ACCOUNT PLANNER David Tin dle [facility] [place] [facility]-08739 [id number] Vst-Est Level III 11:12:16 CDT Yanet Bess DO [facility] CPT-04922 Level 3 Est. Patient 11:34:49 ACCOUNT PLANNER Perez Mora MD [facility] CPT-24241 Level 4 Est. Patient 09:51:32 ACCOUNT PLANNER Carlton rich MD [facility]-92403 Level 3 Est. Patient 10:26:00 ACCOUNT PLANNER Elise stephenson [facility] CPT-71165 Level 3 Est. Patient 13:35:41 ACCOUNT PLANNER Carlton rich MD [facility] CPT-40262 Level 3 Est. Patient 10:03:52 ACCOUNT PLANNER Carlton rich MD [facility] CPT-86688 Level 3 Est. Patient 12:17:50 CDT Hugo Restrepo MD [facility] CPT-94676 Level 3 Est. Patient 13:42:38 CDT Elise Are ll [facility] CPT-24479 Level 3 Est. Patient 13:23:51 CDT Diya cobian [facility] CPT-36780 Level 3 Est. Patient 14:22:19 ACCOUNT PLANNER Diya cobian [facility] CPT-20933 Level 3 Est. Patient 10:11:46 CDT Carlton rich MD [facility] CPT-31202 Level 3 Est. Patient 17:29:43 CDT Elise Are ll [facility] CPT-39433 Level 3 Est. Patient 11:58:06 CDT Elise Are [facility] CPT-00035 Level 4 Est. Patient 14:36:51 CDT Carlton rich MD [facility] CPT-28212 Level 3 Est. Patient 18:16:00 ACCOUNT PLANNER Blaine HERNANDEZ [facility] CPT-65718 Level 3 Est. Patient 09:45:49 ACCOUNT PLANNER Carlton rich MD [facility] CPT-61310 Level 3 Est. Patient 13:19:20 CDT Carlton rich MD [facility] CPT-94045 Level 3 Est. Patient 13:06:43 CDT Ridge tam DO [facility] CPT-34058 Level 3 Est. Patient 10:03:07 CDT Perez Mora MD [facility] CPT-32656 Level 3 Est. Patient 19:50:35 ACCOUNT PLANNER Carlton rich MD [facility] CPT-38666 Level 4 Est. Patient 18:05:01 ACCOUNT PLANNER Carlton rich MD [facility]-61225 Level 3 Est. Patient 10:45:55 ACCOUNT PLANNER Hugo Restrepo MD [facility]-61087 Level 3 Est. Patient 14:12:49 CDT Griffin HERNANDEZ [facility]-31957 Level 3 Est. Patient 17:37:24 CDT Carlton rich MD [facility]-45369 Level 3 Est. Patient 16:51:54 CDT Carlton rich MD [facility]-11261 Level 3 Est. Patient 12:18:11 CDT Hugo Restrepo MD [facility]-82392 Level 3 Est. Patient 11:30:25 CDT Marcy crisostomo MD PhD [facility]-57966 Level 3 Est. Patient 12:00:47 ACCOUNT PLANNER Carlton rich MD [facility] CPT-13545 Level 3 Est. Patient 16:31:06 ACCOUNT PLANNER Carlton rich MD [facility]-93491 Level 3 Est. Patient 16:23:24 ACCOUNT PLANNER Ridge tam DO [facility] CPT-81499 Level 3 Est. Patient 12:34:12 CDT Carlton rich MD [facility] CPT-98301 Level 2 Est. Patient 15:43:33 CDT Robi armstrong MD [facility]-25919 Level 4 Est. Patient 14:04:44 CDT Carlton rich MD [facility] CPT-73717 Level 3 Est. Patient 05:47:59 CDT Ridge tam [facility]-99438 Level 3 Est. Patient 13:12:53 ACCOUNT PLANNER Carlton rich MD [facility] CPT-23298 Level 3 Est. Patient 14:26:53 CDT Hugo Restrepo MD [facility] Procedures Code Procedure Name Date Entry Date Standard Desc ription CPT-96906 Venipuncture Draw Fee 15:53:34 CDT CPT-000 Give Appropriate Flu Vaccine 14:14:31 CDT 2 CPT-J1040 Depo Medrol 80 mg (Methyl Prednisolone A cetate) 10:42:44 CDT CPT-J1100 Decadron 8mg (Dexamethasone) 10:42:44 CDT 2 CPT-J0696 Rocephin 1gm Inj Solr 14:32:13 CDT CPT-J1020 Depo Medrol 60 mg (Methyl Prednisolone A cetate) 14:32:13 CDT CPT-J1100 Decadron 6mg (Dexamethasone) 14:32:13 CDT 2 CPT-79917 Hip bilat min 2V w AP pelvis 13:16:20 CDT 2 CPT-18877 Pelvis only 13:07:33 CDT CPT-82857 Spec Collection and Handling Fee 11:25:12 C DT CPT-01600 Fluzone Quadrivalent Intramuscular Suspe nsion 0.5 ML 14:31:55 CDT CPT-72118 Abx/Therapy Injection 13:28:47 ACCOUNT PLANNER CPT-J2930 Solu Medrol 125 mg (Methyl Prednisolone Sodium Succinate) 12:00:47 ACCOUNT PLANNER CPT-81811 Venipuncture Draw Fee 11:33:31 CDT CPT-03017 EKG Trac and Interp 11:21:09 CDT CPT-72139 Chest 2V Frontal and Lat 11:21:09 CDT 12/15 CPT-95255 Venipuncture Draw Fee 08:02:34 CDT CPT-13954 Chest 2V Frontal and Lat 05:47:59 CDT 06/05
--- OUTSIDE RECORDS SUMMARY | 2019-10-08 09:50 | XMS REPORT | Clinical Summary ---
Author Author Caitlin, Juliana Maritnez Organization [employer] [facility] Address Unknown [...] URI 465.9 Inactive Ridge Bess DO Ac [place] upper respiratory infections of unspecified site Body Mass Index 35.0-35.9 Adult Refinement 2017 Ridge Bess DO Body Mass Index 35.0-35.9, adult BMI 34-34.9 Refinement Cherelle Torres RN Body Mass Index 35.0-35.9, adult BMI 35-35.9 Refinement David Marianneamisha RICEN Body Mass Index 35.0-35.9, adult BMI 34-34.9 Refinement May Vivar MD Body Mass Index 35.0-35.9, adult BMI 35-35.9 Refinement David Marianne CASTING OPERATOR HELPER Body Mass Index 35.0-35.9, adult BMI 33-33.9 Active David Marianne CASTING OPERATOR HELPER Body Mass Index 35.0-35.9, adult Upper respiratory [...] nonspecific skin eruption 782.1 Active David Marianne CASTING OPERATOR HELPER Rash and other nonspecific skin eruption Pharyngitis, acute / sore throat 462 Active 201 12/06/23 David Marianne CASTING OPERATOR HELPER Acute pharyngitis Shingles 053.9 Active David Marianne CASTING OPERATOR HELPER Herpes zoster without mention of complication Allergic [...] tsp PO q6h PRN co ugh GUAIFENESIN-CODEINE 70977639030 Active David Marianne CASTING OPERATOR HELPER Active AMOXICILLIN-POT CLAVULANATE 875-125 MG ORAL TABLET 1 pill by mouth twice daily AMOXICILLIN-POT CLAVULANATE 21060760481 Active David Marianne CASTING OPERATOR HELPER Active DULOXETINE HCL 60 MG ORAL CAPSULE DELAYED RELEASE PART ICLES TAKE 1 CAPSULE BY MOUTH ONCE DAILY FOR PAIN AND MOOD DULOXETINE HCL 002 32892517 Active Carlton Hu MD Active TRAMADOL HCL 50 MG TABS TAKE 1 TABLET BY MOUTH THREE TIMES DAILY WITH EXTRA STRENGTH TYLENOL TRAMADOL HCL 94879925931 Active Carlton Hu MD Active ALPRAZOLAM 0.5 MG TABS TAKE 1 TABLET BY MOUTH ONCE DAILY NEEDED ALPRAZOLAM 63674176216 Active Carlton Hu MD Active GABAPENTIN 100 MG ORAL CAPSULE TAKE 1 CAPSULE BY MOUTH TWICE DAILY FOR FIBROMYALGIA GABAPENTIN 38148436963 Active Carlton Hu MD Active ELMIRON 100MG CAP TAKE 2 CAPSULES BY MOUTH IN THE MORNING AND 1 CAPSULE AT BEDTIME PENTOSAN POLYSULFATE SODIUM 57219908843 Active May Vivar MD Active TOPIRAMATE 100 MG TABS TAKE 1 TABLET BY MOUTH TWICE DAILY 1 TOPIRAMATE 91315081949 Active Carlton Hu MD Active ATORVASTATIN CALCIUM 10 MG ORAL TABLET 1 pill by mouth night ly, for cholesterol ATORVASTATIN CALCIUM 71644863091 Active Columba Francois Active TRIAMCINOLONE ACETONIDE 0.1 % EXTERNAL CREAM apply bid spari ngly to rash TRIAMCINOLONE ACETONIDE 99948232629 No Longer Active Carlton Hu MD Active TYLENOL WITH CODEINE #3 300-30 MG ORAL TABLET ACETAMINOPHEN-CODEINE 54061799234 No Longer Active Carlton Hu MD Active TYLENOL WITH CODEINE #3 300-30 MG ORAL TABLET 1-2 po q6hr PRN Pa in ACETAMINOPHEN-CODEINE 65582301451 No Longer Active David Lopes AP RN Active ACYCLOVIR 800 MG ORAL TABLET 1 po 5 times daily x 7 days ACYCLOVIR 80364314126 No Longer Active David Marianne CASTING OPERATOR HELPER Active TOPAMAX 100 MG ORAL TABLET 1 by mouth twice daily TOPIRAMATE 34185311485 Active Carlton Hu MD Active TRIAMCINOLONE ACETONIDE 0.1 % EXTERNAL OINTMENT Apply to affected areas TID PRN Rash/Itching for up 2 weeks TRIAMCINOLONE ACETON KAYLA 42669907483 No Longer Active David Marianne CASTING OPERATOR HELPER Active AMOXICILLIN 500 MG ORAL CAPSULE 1 cap by mouth twice daily 10/21 AMOXICILLIN 77233638248 No Longer Active David Marianne CASTING OPERATOR HELPER Active CYMBALTA 30 MG ORAL CAPSULE DELAYED RELEASE PARTICLES 1 cap by mouth daily for depression DULOXETINE HCL 38483866819 No Longer Active Carlton Hu MD Active TUSSIONEX PENNKINETIC ER 10-8 MG/5ML ORAL SUSPENSION E XTENDED RELEASE 5ml po q12hr PRN Cough HYDROCOD POLST-CHLORPHEN POLST 44294778320 Active Carlton Hu MD Active PREDNISONE 20 MG ORAL TABLET Take 2 tabs day 1 and 2 and 1 t ab days 3 and 4 PREDNISONE 55010023203 No Longer Active David Marianne CASTING OPERATOR HELPER Active DOXYCYCLINE HYCLATE 100 MG ORAL CAPSULE 1 cap by mouth twice latasha ly DOXYCYCLINE HYCLATE 71003912967 No Longer Active David Marianne CASTING OPERATOR HELPER Active TOPAMAX 100 MG ORAL TABLET Take 1 tablet po bid TOPIRAMATE 58348748668 No Longer Active David Marianne CASTING OPERATOR HELPER Active TUSSIONEX PENNKINETIC ER 10-8 MG/5ML ORAL SUSPENSION E XTENDED RELEASE 5ml po q12hr PRN Cough HYDROCOD POLST-CHLORPHEN POLST 5 1263332304 No Longer Active David Marianne CASTING OPERATOR HELPER Active AUGMENTIN 875-125 MG ORAL TABLET 1 po BID x 10 days 18/04/16 AMOXICILLIN-POT CLAVULANATE 59295441770 No Longer Active David Marianne CASTING OPERATOR HELPER Active PREDNISONE 50 MG ORAL TABLET Take 50 mg dialy for 6 day s 7 PREDNISONE 21370520112 No Longer Active David Marianne CASTING OPERATOR HELPER Active TUSSIONEX PENNKINETIC ER 10-8 MG/5ML ORAL SUSPENSION E XTENDED RELEASE 5ml po q12hr PRN Cough HYDROCOD POLST-CHLORPHEN POLST 5 5132313264 No Longer Active Cherelle Torres RN Active PREDNISONE 20 MG ORAL TABLET two tabs by mouth today, then one tab by mouth days two and three and four PREDNISONE 71868054983 No Lo nger Active Cherelle Torres RN Active AZITHROMYCIN 250 MG ORAL TABLET 2 po qd x 1 day, then 1 po q d x 4 days AZITHROMYCIN 43996546736 No Longer Active Ridge Bess DO Active PREDNISONE 20 MG ORAL TABLET 2 po qd x 5 days P REDNISONE 27661396805 No Longer Active Perez Mora MD Active PROAIR HFA 108 (90 BASE) MCG/ACT INHALATION AEROSOL SO LUTION 2 puffs four times a day as needed ALBUTEROL SULFATE 83944263364 No Long er Active Becky Cuellar JEFFA Active ASPIRIN 81 MG ORAL TABLET 1 po qd ASPIRIN 62105605222 Active Carlton Hu MD Active PREDNISONE 20 MG ORAL TABLET 1 tab twice daily for 3 d ay, then one daily for three days PREDNISONE 06024929591 No Longer Active Carlton Hu MD Active AUGMENTIN 875-125 MG ORAL TABLET 1 po BID x 10 days 16/03/22 AMOXICILLIN-POT CLAVULANATE 05324295259 No Longer Active Elise Garcia APRN Active TERBINAFINE HCL 250 MG ORAL TABLET 1 qDay for nail fungus 7 TERBINAFINE HCL 21730059592 No Longer Active Carlton Hu MD A ctive AMOXICILLIN 500 MG ORAL CAPSULE 1 cap by mouth three times a day AMOXICILLIN 34682159140 No Longer Active Carlton Hu MD Active ELMIRON 100 MG ORAL CAPSULE 2 tablets in the am and 1 tablet at hs PENTOSAN POLYSULFATE SODIUM 50263557863 No Longer Active Robert jade Hu MD Active MUCINEX D 60-600 MG ORAL TABLET EXTENDED RELEASE 12 HOUR 1 t ab po q am PSEUDOEPHEDRINE-GUAIFENESIN 31571255912 No Longer Act nael Carlton Hu MD Active MUCINEX DM MAXIMUM STRENGTH 60-1200 MG ORAL TABLET EXT ENDED RELEASE 12 HOUR 1 tab po q am DEXTROMETHORPHAN-GUAIFENESIN 47780667284 No Longer Active Carlton Hu MD Active TUSSIONEX PENNKINETIC ER 10-8 MG/5ML ORAL SUSPENSION E XTENDED RELEASE 5ml po q12hr PRN Cough HYDROCOD POLST-CHLORPHEN POLST 5 6364439951 No Longer Active Carlton Hu MD Active POTASSIUM CHLORIDE ER 20 MEQ ORAL TABLET EXTENDED RELE ASE Take 1 by mouth 4 times daily for 7 days POTASSIUM CHLORIDE 41923543422 No Longer Active Carlton Hu MD Active ZITHROMAX 250 MG ORAL TABLET 2 po today, then 1 po q days 2-5 20 14/09/04 AZITHROMYCIN 20629518132 No Longer Active Elise Garcia APRN Active TUSSIONEX PENNKINETIC ER 10-8 MG/5ML ORAL SUSPENSION E XTENDED RELEASE 5 ml twice a day as needed for cough HYDROCOD POLST-CHLORPH EN POLST 93715131837 No Longer Active Elise Garcia APRN Active MONTELUKAST SODIUM 10 MG ORAL TABLET 1 po daily for Allergy MONTELUKAST SODIUM 57352895981 Active Carlton Hu MD Ac tive TUSSIONEX PENNKINETIC ER 10-8 MG/5ML ORAL SUSPENSION E XTENDED RELEASE 5ml po q12hr PRN Cough HYDROCOD POLST-CHLORPHEN POLST 5 7475561493 No Longer Active Hugo Restrepo MD Active LYRICA 100 MG ORAL CAPSULE Take 1 tab po BID for fibromyalgia 20 11/08/21 PREGABALIN 11148935295 No Longer Active Elise Garcia APRN A ctive PREDNISONE 20 MG ORAL TABLET 2 tabs daily for 3 days, 1 tab daily for 3 days, 1/2 tab daily for 2 days PREDNISONE 79834754878 No Longer Active Diya De Guzman APRN Active TUSSIONEX PENNKINETIC ER 10-8 MG/5ML ORAL SUSPENSION E XTENDED RELEASE 5 mL PO q 12 hrs PRN cough HYDROCOD POLST-CHLORPHEN POLST 889800 85213 No Longer Active Jillina Gege KHAN Active FLUTICASONE PROPIONATE 50 MCG/ACT NASAL SUSPENSION 2 s prays each nostril daily until bottle is empty FLUTICASONE PROPIONATE 467732615 99 No Longer Active Jillina Gege RICEN Active ASMANEX 60 METERED DOSES 220 MCG/INH INHALATION AEROSO L POWDER BREATH ACTIVATED 1 puff bid with rinse after MOMETASONE FUROATE 6037341 4102 No Longer Active Diya De Guzman APRN Active ZITHROMAX Z-REYNA 250 MG ORAL TABLET 2 today, then 1 daily for 4 d ays AZITHROMYCIN 73527915500 No Longer Active Elise Garcia APRN Active TUSSIONEX PENNKINETIC ER 10-8 MG/5ML ORAL SUSPENSION E XTENDED RELEASE 5ml po q12hr PRN Cough HYDROCOD POLST-CHLORPHEN POLST 5 0979903964 No Longer Active Elise Garcia APRN Active PREDNISONE 20 MG ORAL TABLET 2 tabs daily for 3 days, 1 tab daily for 3 days, 1/2 tab daily for 2 days PREDNISONE 01280459160 No Longer Active Diya De Guzman APRN Active AMOXICILLIN 500 MG ORAL CAPSULE 2 po BID x 10 days 201 09/29/08 AMOXICILLIN 59579935842 No Longer Active Diya De Guzman APRN Act nael SINGULAIR 10 MG ORAL TABLET 1 po qday for allergies 20 14/01/12 MONTELUKAST SODIUM 60381891734 No Longer Active Carlton Hu MD Active LEVAQUIN 500 MG ORAL TABLET 1 tablet by mouth daily 20 13/09/24 LEVOFLOXACIN 89660054911 No Longer Active Carlton Hu MD Acti ve FLUTICASONE PROPIONATE 50 MCG/ACT NASAL SUSPENSION 2 s prays each nostril daily for 2 weeks, then 1 spray each nostril daily. FLUTICASONE PROPIONATE 18159492672 Active Carlton Hu MD Active ZITHROMAX 250 MG ORAL TABLET 2 po today, then 1 po q days 2-5 20 13/08/10 AZITHROMYCIN 65447270623 No Longer Active Elise Garcia APRN Active CEFDINIR 300 MG ORAL CAPSULE 1 po BID x 10 days CEFDINIR 57687376975 No Longer Active Carlton Hu MD Active ZOCOR 40 MG ORAL TABLET 1 tab by mouth daily SI MVASTATIN 89370402208 No Longer Active Carlton Hu MD Active CYCLOBENZAPRINE HCL 10 MG ORAL TABLET 1 tablet by mouth BID prn had pain CYCLOBENZAPRINE HCL 45992045566 No Longer Active Jayden Hu MD Active LEVOFLOXACIN 500 MG ORAL TABLET 1 tab PO daily x 10 days LEVOFLOXACIN 46835770784 No Longer Active Carlton Hu MD Acti ve PREDNISONE 20 MG ORAL TABLET 3 tab PO qd x 2d, 2 tab P O qd x 2d, 1 tab PO qd x 2d, 1/2 tab PO qd x 2d PREDNISONE 30771850050 No Lo nger Active Carlton Hu MD Active FLUTICASONE PROPIONATE 50 MCG/ACT NASAL SUSPENSION 1 t o 2 sprays each nostril daily FLUTICASONE PROPIONATE 41783523997 No Longer Ac tive Blaine HERNANDEZ Active CHERATUSSIN AC 100-10 MG/5ML ORAL SYRUP 1 tsp by mouth every 4 hours as needed for cough GUAIFENESIN-CODEINE 59630079851 No Longe r Active Blaine HERNANDEZ Active PROMETHAZINE-CODEINE 6.25-10 MG/5ML ORAL SYRUP 1 tsp b y mouth every 6 hours if needed for cough PROMETHAZINE-CODEINE 23828006920 No Longer Active Blaine HERNANDEZ Active CHERATUSSIN AC 100-10 MG/5ML ORAL SYRUP 1 tsp by mouth every 4 hours as needed for cough GUAIFENESIN-CODEINE 09964372707 No Longe r Active Blaine HERNANDEZ Active ZITHROMAX Z-REYNA 250 MG ORAL TABLET 2 today, then 1 daily for 4 d ays AZITHROMYCIN 95405208067 No Longer Active Columba Parrish Act nael ZITHROMAX 250 MG ORAL TABLET 2 po today, then 1 po q days 2-5 20 14/03/21 AZITHROMYCIN 23295062448 No Longer Active Carlton Hu MD Active ZITHROMAX Z-REYNA 250 MG ORAL TABLET 2 today, then 1 daily for 4 d ays AZITHROMYCIN 63397265840 No Longer Active Columba Parrish Act nael AUGMENTIN 875-125 MG ORAL TABLET 1 po BID x 10 days 20 13/01/20 AMOXICILLIN-POT CLAVULANATE 86020513368 No Longer Active Venuriley Daphnebrayan KHAN Active ZITHROMAX 250 MG ORAL TABLET 2 po today, then 1 po q days 2-5 20 12/08/14 AZITHROMYCIN 20828642013 No Longer Active Carlton Hu MD Active PREMARIN 0.625 MG ORAL TABLET TAKE 1 TAB BY MOUTH DAILY ESTROGENS CONJUGATED 93869048653 No Longer Active Ridge Bess DO A ctive CYMBALTA 30 MG ORAL CAPSULE DELAYED RELEASE PARTICLES 1 cap by mouth daily DULOXETINE HCL 86099477858 No Longer Active Ridge tam DO Active AMOXICILLIN 500 MG ORAL CAPSULE 1 tab by mouth 3 times daily x 10 days AMOXICILLIN 74805601247 No Longer Active Carlton bustamante MD Active AMOXICILLIN 500 MG ORAL CAPSULE 1 tab by mouth 3 times daily x 10 days AMOXICILLIN 71358482913 No Longer Active Carlton bustamante MD Active PROMETHAZINE-CODEINE 6.25-10 MG/5ML ORAL SYRUP 1 tsp b y mouth every 8 hours prn cough PROMETHAZINE-CODEINE 15509060394 No Longer Acti ve Carlton Hu MD Active MEDROL 4 MG ORAL TABLET THERAPY PACK 6 pills x 1 day, then 5 pills x 1 day then 4 pills x 1 day, then 3 pills x 1 day, then 2 pills x 1 day, then 1 pill x 1 day, then stop METHYLPREDNISOLONE 42479607152 No Long er Active Perez Mora MD Active AZITHROMYCIN 250 MG ORAL TABLET 2 po qd x 1 day, then 1 po q d x 4 days AZITHROMYCIN 94985114603 No Longer Active Perez Ambriz MD Active SYMBICORT 160-4.5 MCG/ACT INHALATION AEROSOL 2 puffs bid wit h rinse after BUDESONIDE-FORMOTEROL FUMARATE 15798783697 N o Longer Active Perez Mora MD Active LYRICA 75 MG ORAL CAPSULE TAKE 1 CAPSULE BY MOUTH TWICE DAILY PREGABALIN 91563739391 No Longer Active Carlton Hu MD Acti ve TOPAMAX 25 MG ORAL TABLET 1 qHS x 1 week, then 1 BID x 1 week, then 1 qAM and 2 qHS x 1 week, then 2 BID (migraine prevention) T OPIRAMATE 02784449676 No Longer Active Jerica FUENTES Active TOPAMAX 50 MG ORAL TABLET take 1 tab po BID for migraines. 07/02 TOPIRAMATE 71768811147 No Longer Active eJrica FUENTES Active TRIAMCINOLONE ACETONIDE 0.1 % EXTERNAL CREAM apply three roger es daily prn rash TRIAMCINOLONE ACETONIDE 56380961012 No Longer Active Carlton Hu MD Active PAXIL 40 MG ORAL TABLET take 1 tab po qday for depression 0 PAROXETINE HCL 69796071958 Active Carlton Hu MD Active CHERATUSSIN AC 100-10 MG/5ML ORAL SYRUP 5ml po q6hr PRN Cough 20 13/04/14 GUAIFENESIN-CODEINE 42797380113 No Longer Active Carlton Hu MD Active MEDROL 4 MG ORAL TABLET THERAPY PACK 6 tabs on day 1, 5 tabs on day 2, 4 tabs on day 3, 3 tabs on day 4, 2 tabs on day 5, 1 tab on day 6 2013 METHYLPREDNISOLONE 77240640006 No Longer Active Perez Mora MD Active AZITHROMYCIN 250 MG ORAL TABLET 2 po qd x 1 day, then 1 po q d x 4 days AZITHROMYCIN 35911861728 No Longer Active Perez Ambriz MD Active PROPRANOLOL HCL 60 MG ORAL TABLET 1 PO Q D PROPRANOLOL HCL 93062306173 No Longer Active Perez Mora MD Activ e CHERATUSSIN AC 100-10 MG/5ML ORAL SYRUP take one tsp po Q 6h ours prn cough GUAIFENESIN-CODEINE 95814555581 No Longer Active Zia Mora MD Active AUGMENTIN 875-125 MG ORAL TABLET 1 tab by mouth twice daily with food AMOXICILLIN-POT CLAVULANATE 01536864889 No Longer Act nael Perez Mora MD Active CHERATUSSIN AC 100-10 MG/5ML ORAL SYRUP 1 tsp by mouth every 4 hours as needed for cough GUAIFENESIN-CODEINE 14148509003 No Longe r Active Hugo Restrepo MD Active ACETAMINOPHEN-CODEINE #3 300-30 MG ORAL TABLET 1 PO Q 4-6 HRS MT N PAIN ACETAMINOPHEN-CODEINE 32362128839 No Longer Active Hugo Restrepo MD Active LEVAQUIN 500 MG ORAL TABLET take one po QD LEVO FLOXACIN 65834262574 No Longer Active Griffin HERNANDEZ Active PREDNISONE 20 MG ORAL TABLET Take 3 tabs daily for 3 d ays, 2 tabs daily for 3 days, 1 tab daily for 3 days, 1/2 tab daily for 3 days 11/07 PREDNISONE 94949235054 No Longer Active Carlton Hu MD Acti ve AVELOX 400 MG ORAL TABLET 1 tab by mouth daily MOXIFLOXACIN HCL 25101587105 No Longer Active Carlton Hu MD Active CHERATUSSIN AC 100-10 MG/5ML ORAL SYRUP 1 tsp by mouth every 4 hours as needed for cough GUAIFENESIN-CODEINE 30504502994 No Longe r Active Hugo Restrepo MD Active AVELOX 400 MG ORAL TABLET 1 tab by mouth daily MOXIFLOXACIN HCL 70532527939 No Longer Active Marcy De La Rosa MD PhD Active TERBINAFINE HCL 250 MG ORAL TABLET 1 qDay T ERBINAFINE HCL 23335965622 No Longer Active Marcy De La Rosa MD PhD Active CHERATUSSIN AC 100-10 MG/5ML ORAL SYRUP 1 tsp by mouth every 4 hours as needed for cough GUAIFENESIN-CODEINE 26525446387 No Longe r Active Marcy De La Rosa MD PhD Active AVELOX 400 MG ORAL TABLET 1 tab by mouth daily MOXIFLOXACIN HCL 23383420845 No Longer Active Marcy De La Rosa MD PhD Active HYDROCODONE-ACETAMINOPHEN 5-325 MG ORAL TABLET 1 po q 6hr PRN co ugh HYDROCODONE-ACETAMINOPHEN 87537315273 No Longer Active Marcy De La Rosa MD PhD Active PREDNISONE 20 MG ORAL TABLET 2 tabs daily for 3 days, 1 tab daily for 3 days, 1/2 tab daily for 2 days PREDNISONE 58065393137 No Longer Active Carlton Hu MD Active CEFDINIR 300 MG ORAL CAPSULE by mouth twice a day 2011 CEFDINIR 92644513538 No Longer Active Carlton Hu MD Acti ve HYDROCHLOROTHIAZIDE 25 MG ORAL TABLET 1 TAB PO DAILY HYDROCHLOROTHIAZIDE 83428118858 Active Carlton Hu MD A ctive ACETAMINOPHEN-CODEINE #3 300-30 MG ORAL TABLET 1 tablet po q 4-6 hrs prn pain ACETAMINOPHEN-CODEINE 70267731199 No Longer Active Ridge Bess DO Active ZITHROMAX 250 MG ORAL TABLET 2 po today, then 1 po q days 2-5 20 03/07/07 AZITHROMYCIN 58566313141 No Longer Active Carlton Hu MD Active CHERATUSSIN AC 100-10 MG/5ML ORAL SYRUP take 1 tsp po q4-6 h ours prn cough GUAIFENESIN-CODEINE 37596579157 No Longer Active Jayden Hu MD Active ACETAMINOPHEN-CODEINE #3 300-30 MG ORAL TABLET 1 PO Q 4-6 HR PRN PAIN ACETAMINOPHEN-CODEINE 40766847385 No Longer Active Arnol Hu MD Active LORTAB 7.5-500 MG/15ML ORAL ELIXIR 7.5 ml po q 4 hour prn cough HYDROCODONE-ACETAMINOPHEN 76405142201 No Longer Active Carlton Hu MD Active PREDNISONE 20 MG ORAL TABLET 1 po bid 3 days, then 1 po q day 3 days PREDNISONE 74247318627 No Longer Active Carlton Hu MD Active CEFDINIR 300 MG ORAL CAPSULE by mouth twice a day 2011 CEFDINIR 43190027221 No Longer Active Carlton Hu MD Acti ve CEFDINIR 300 MG ORAL CAPSULE by mouth twice a day 2010 CEFDINIR 79609708001 No Longer Active Carlton Hu MD Acti ve CEFDINIR 300 MG ORAL CAPSULE by mouth twice a day 2010 CEFDINIR 35608527874 No Longer Active Carlton Hu MD Acti ve TESSALON PERLES 100 MG ORAL CAPSULE 1 tablet by mouth 3 times daily as needed for cough BENZONATATE 68991339428 No Longer Active Carlton uH MD Active CEFDINIR 300 MG ORAL CAPSULE by mouth twice a day 2010 CEFDINIR 73669097205 No Longer Active Carlton Hu MD Acti ve ZITHROMAX Z-REYNA 250 MG ORAL TABLET 2 today, then 1 daily for 4 d ays AZITHROMYCIN 81157479621 No Longer Active Hugo Restrepo MD Active TESSALON PERLES 100 MG ORAL CAPSULE 1 tablet by mouth 3 times daily as needed for cough TESSALON PERLES 100 MG ORAL CAPSULE 88982 7 BENZONATATE Inactive PREDNISONE 20 MG ORAL TABLET 1 po bid 3 days, then 1 po q day 3 days PREDNISONE 20 MG ORAL TABLET 009887 PREDNISONE [place] ctive LORTAB 7.5-500 MG/15ML ORAL ELIXIR 7.5 ml po q 4 hour prn cough LORTAB 7.5-500 MG/15ML ORAL ELIXIR HYDROCODONE-A CETAMINOPHEN Inactive ACETAMINOPHEN-CODEINE #3 300-30 MG ORAL TABLET 1 PO Q 4-6 HR PRN PAIN ACETAMINOPHEN-CODEINE #3 300-30 MG ORAL TABLET 9 47308 ACETAMINOPHEN-CODEINE Inactive CHERATUSSIN AC 100-10 MG/5ML ORAL SYRUP take 1 tsp po q4-6 h ours prn cough CHERATUSSIN AC 100-10 MG/5ML ORAL SYRUP 641063 GUAIFENESIN-CODEINE Inactive ACETAMINOPHEN-CODEINE #3 300-30 MG ORAL TABLET 1 tablet po q 4-6 hrs prn pain ACETAMINOPHEN-CODEINE #3 300-30 MG ORAL TABLET 670762 ACETAMINOPHEN-CODEINE Inactive HYDROCODONE-ACETAMINOPHEN 5-325 MG ORAL TABLET 1 po q 6hr PRN co ugh HYDROCODONE-ACETAMINOPHEN 5-325 MG ORAL TABLET 790531 HYDROCODONE-ACETAMINOPHEN Inactive AVELOX 400 MG ORAL TABLET 1 tab by mouth daily AVELOX 400 MG ORAL TABLET MOXIFLOXACIN HCL Inactive CHERATUSSIN AC 100-10 MG/5ML ORAL SYRUP 1 tsp by mouth every 4 hours as needed for cough CHERATUSSIN AC 100-10 MG/5ML ORAL SYRUP 9 89006 GUAIFENESIN-CODEINE Inactive TERBINAFINE HCL 250 MG ORAL TABLET 1 qDay 07/08 TERBINAFINE HCL 250 MG ORAL TABLET 656398 TERBINAFINE HCL Inactive CHERATUSSIN AC 100-10 MG/5ML ORAL SYRUP 1 tsp by mouth every 4 hours as needed for cough CHERATUSSIN AC 100-10 MG/5ML ORAL SYRUP 9 24900 GUAIFENESIN-CODEINE Inactive ACETAMINOPHEN-CODEINE #3 300-30 MG ORAL TABLET 1 PO Q 4-6 HRS MT N PAIN ACETAMINOPHEN-CODEINE #3 300-30 MG ORAL TABLET 971668 ACETAMINOPHEN-CODEINE Inactive CHERATUSSIN AC 100-10 MG/5ML ORAL SYRUP 1 tsp by mouth every 4 hours as needed for cough CHERATUSSIN AC 100-10 MG/5ML ORAL SYRUP 9 41199 GUAIFENESIN-CODEINE Inactive AUGMENTIN 875-125 MG ORAL TABLET 1 tab by mouth twice daily with food AUGMENTIN 875-125 MG ORAL TABLET AMOXICIL MADELINE-POT CLAVULANATE Inactive CHERATUSSIN AC 100-10 MG/5ML ORAL SYRUP take one tsp po Q 6h ours prn cough CHERATUSSIN AC 100-10 MG/5ML ORAL SYRUP 305242 GUAIFENESIN-CODEINE Inactive PROPRANOLOL HCL 60 MG ORAL TABLET 1 PO Q D PROPRANOLOL HCL 60 MG ORAL TABLET 862217 PROPRANOLOL HCL Inactive TOPAMAX 50 MG ORAL TABLET take 1 tab po BID for migraines. 07/02 TOPAMAX 50 MG ORAL TABLET 161985 TOPIRAMATE Inacti ve TOPAMAX 25 MG ORAL TABLET 1 qHS x 1 week, then 1 BID x 1 week, then 1 qAM and 2 qHS x 1 week, then 2 BID (migraine prevention) TOPAMAX 25 MG ORAL TABLET 806674 TOPIRAMATE Inactive LYRICA 75 MG ORAL CAPSULE TAKE 1 CAPSULE BY MOUTH TWICE DAILY LYRICA 75 MG ORAL CAPSULE 347787 PREGABALIN Inactive SYMBICORT 160-4.5 MCG/ACT INHALATION AEROSOL 2 puffs bid wit h rinse after SYMBICORT 160-4.5 MCG/ACT INHALATION AEROSOL BUDESONIDE- FORMOTEROL FUMARATE Inactive PROMETHAZINE-CODEINE 6.25-10 MG/5ML ORAL SYRUP 1 tsp b y mouth every 8 hours prn cough PROMETHAZINE-CODEINE 6.25-10 MG/ 5ML ORAL SYRUP 781573 PROMETHAZINE-CODEINE Inactive CYMBALTA 30 MG ORAL CAPSULE DELAYED RELEASE PARTICLES 1 cap by mouth daily CYMBALTA 30 MG ORAL CAPSULE DELAYED RELE ASE PARTICLES 626647 DULOXETINE HCL Inactive PREMARIN 0.625 MG ORAL TABLET TAKE 1 TAB BY MOUTH DAILY PREMARIN 0.625 MG ORAL TABLET ESTROGENS CONJUGATED Inactive CHERATUSSIN AC 100-10 MG/5ML ORAL SYRUP 1 tsp by mouth every 4 hours as needed for cough CHERATUSSIN AC 100-10 MG/5ML ORAL SYRUP 9 84082 GUAIFENESIN-CODEINE Inactive PROMETHAZINE-CODEINE 6.25-10 MG/5ML ORAL SYRUP 1 tsp b y mouth every 6 hours if needed for cough PROMETHAZINE-CODEINE 6.25-10 MG/5ML ORAL SYRUP 945318 PROMETHAZINE-CODEINE Inactive CHERATUSSIN AC 100-10 MG/5ML ORAL SYRUP 1 tsp by mouth every 4 hours as needed for cough CHERATUSSIN AC 100-10 MG/5ML ORAL SYRUP 9 84556 GUAIFENESIN-CODEINE Inactive FLUTICASONE PROPIONATE 50 MCG/ACT NASAL SUSPENSION 1 t o 2 sprays each nostril daily FLUTICASONE PROPIONATE 50 MCG/AC T NASAL SUSPENSION 9016362 FLUTICASONE PROPIONATE Inactive PREDNISONE 20 MG ORAL TABLET 3 tab PO qd x 2d, 2 tab P O qd x 2d, 1 tab PO qd x 2d, 1/2 tab PO qd x 2d PREDNISONE 20 MG ORAL TAB LET 291747 PREDNISONE Inactive LEVOFLOXACIN 500 MG ORAL TABLET 1 tab PO daily x 10 days LEVOFLOXACIN 500 MG ORAL TABLET 679696 LEVOFLOXACIN Inactive CYCLOBENZAPRINE HCL 10 MG ORAL TABLET 1 tablet by mouth BID prn had pain CYCLOBENZAPRINE HCL 10 MG ORAL TABLET 253400 CYCLOBENZAPRINE HCL Inactive ZOCOR 40 MG ORAL TABLET 1 tab by mouth daily 4 ZOCOR 40 MG ORAL TABLET 754404 SIMVASTATIN Inactive TUSSIONEX PENNKINETIC ER 10-8 MG/5ML [...] FLUTICASONE PROPIO EFE 50 MCG/ACT NASAL SUSPENSION 9484169 FLUTICASONE PROPIONATE Inactive TUSSIONEX PENNKINETIC ER 10-8 MG/5ML ORAL SUSPENSION E XTENDED RELEASE 5 mL PO q 12 hrs PRN cough TUSSIONEX PENNKINETI C ER 10-8 MG/5ML ORAL SUSPENSION EXTENDED RELEASE HYDROCOD POLST-CHLORPHEN POLST I nactive LYRICA 100 MG ORAL CAPSULE Take 1 tab po BID for fibromyalgia 11/08/21 LYRICA 100 MG ORAL CAPSULE [id number] PREGABALIN Inact nael TUSSIONEX PENNKINETIC ER 10-8 [...] three days PREDNISONE 20 MG ORAL TABLET [id number] PREDNIS ONE Inactive PROAIR HFA 108 (90 BASE) MCG/ACT INHALATION AEROSOL SO LUTION 2 puffs four times a day as needed PROAIR HFA 108 (90 B ASE) MCG/ACT INHALATION AEROSOL SOLUTION ALBUTEROL SULFATE Inactive PREDNISONE 20 MG ORAL TABLET two tabs by mouth today, then one tab by mouth days two and three and four PREDNISONE 20 MG ORAL TAB LET [id number] PREDNISONE Inactive TUSSIONEX PENNKINETIC ER 10-8 MG/5ML [...] bid 04/20 TOPAMAX 100 MG ORAL TABLET [id number] TOPIRAMATE Inactive CYMBALTA 30 MG ORAL CAPSULE DELAYED RELEASE PARTICLES 1 cap by mouth daily for depression CYMBALTA 30 MG ORAL CAPSULE DELAYED RELEASE PARTICLES [id number] DULOXETINE HCL Inactive TYLENOL WITH CODEINE #3 300-30 MG ORAL TABLET 1-2 po q6hr PRN Pa in TYLENOL WITH CODEINE #3 300-30 MG ORAL TABLET [id number] ACETAMINOPHEN-CODEINE Inactive TYLENOL WITH CODEINE #3 300-30 MG ORAL TABLET TYLENOL WITH CODEINE #3 300-30 MG ORAL TABLET 696731 ACETAMINOPHEN-CODEINE Inactive TRIAMCINOLONE ACETONIDE 0.1 % EXTERNAL CREAM apply bid spari ngly to rash TRIAMCINOLONE ACETONIDE 0.1 % EXTERNAL CREAM 101 4314 TRIAMCINOLONE ACETONIDE Inactive ZITHROMAX Z-REYNA 250 MG ORAL TABLET 2 today, then 1 daily for 4 d ays ZITHROMAX Z-REYNA 250 MG ORAL TABLET 488334 AZITHROMYCIN Inactive CEFDINIR 300 MG ORAL CAPSULE by mouth twice a day 2010 CEFDINIR 300 MG ORAL CAPSULE 796662 CEFDINIR Inactive CEFDINIR 300 MG ORAL CAPSULE by mouth twice a day 2010 CEFDINIR 300 MG ORAL CAPSULE 187724 CEFDINIR Inactive CEFDINIR 300 MG ORAL CAPSULE by mouth twice a day 2010 CEFDINIR 300 MG ORAL CAPSULE 111959 CEFDINIR Inactive CEFDINIR 300 MG ORAL CAPSULE by mouth twice a day 2011 CEFDINIR 300 MG ORAL CAPSULE 666702 CEFDINIR Inactive ZITHROMAX 250 MG ORAL TABLET 2 po today, then 1 po q days 2-5 20 03/07/07 ZITHROMAX 250 MG ORAL TABLET 020286 AZITHROMYCIN [place] [facility] CEFDINIR 300 MG ORAL CAPSULE by mouth twice a day 2011 CEFDINIR 300 MG ORAL CAPSULE 941430 CEFDINIR Inactive PREDNISONE 20 MG ORAL TABLET 2 tabs daily for 3 days, 1 tab daily for 3 days, 1/2 tab daily for 2 days PREDNISONE 20 MG ORAL T ABLET 597157 PREDNISONE Inactive AVELOX 400 MG ORAL TABLET [...] days 11/07 PREDNISONE 20 MG ORAL TABLET 485091 PREDNISONE Inactive LEVAQUIN 500 MG ORAL TABLET take one po QD LEVAQUIN 500 MG ORAL TABLET 744616 LEVOFLOXACIN Inactive AZITHROMYCIN 250 MG ORAL TABLET 2 po qd x 1 day, then 1 po q d x 4 days AZITHROMYCIN 250 MG ORAL TABLET 699433 AZITHROMY GIOVANNI Inactive MEDROL 4 MG ORAL TABLET THERAPY PACK 6 tabs on day 1, 5 tabs on day 2, 4 tabs on day 3, 3 tabs on day 4, 2 tabs on day 5, 1 tab on day 6 2013 MEDROL 4 MG ORAL TABLET THERAPY PACK 876147 METHYLPREDNISOLONE [place] [facility] CHERATUSSIN AC 100-10 MG/5ML ORAL SYRUP 5ml po q6hr PRN Cough 20 13/04/14 CHERATUSSIN AC 100-10 MG/5ML ORAL SYRUP 766172 GUAIFENE SIN-CODEINE Inactive TRIAMCINOLONE ACETONIDE 0.1 % EXTERNAL CREAM apply three roger es daily prn rash TRIAMCINOLONE ACETONIDE 0.1 % EXTERNAL CREAM 101 4314 TRIAMCINOLONE ACETONIDE Inactive AZITHROMYCIN 250 MG ORAL TABLET 2 po qd x 1 day, then 1 po q d x 4 days AZITHROMYCIN 250 MG ORAL TABLET 614391 AZITHROMY GIOVANNI Inactive MEDROL 4 MG ORAL TABLET THERAPY PACK 6 pills x 1 day, then 5 pills x 1 day then 4 pills x 1 day, then 3 pills x 1 day, then 2 pills x 1 day, then 1 pill x 1 day, then stop MEDROL 4 MG ORAL TABLET THERAPY PACK 549279 METHYLPREDNISOLONE Inactive AMOXICILLIN 500 MG ORAL CAPSULE 1 tab by mouth 3 times daily x 10 days AMOXICILLIN 500 MG ORAL CAPSULE 130943 AMOXICILL IN Inactive AMOXICILLIN 500 MG ORAL CAPSULE 1 tab by mouth 3 times daily x 10 days AMOXICILLIN 500 MG ORAL CAPSULE 428218 AMOXICILL IN Inactive ZITHROMAX 250 MG ORAL TABLET 2 po today, then 1 po q days 2-5 20 12/08/14 ZITHROMAX 250 MG ORAL TABLET 457589 AZITHROMYCIN [place] [facility] AUGMENTIN 875-125 MG ORAL TABLET 1 po BID x 10 days 20 13/01/20 AUGMENTIN 875-125 MG ORAL TABLET AMOXICILLIN-POT CLAVULANATE Inactive ZITHROMAX Z-REYNA 250 MG ORAL TABLET 2 today, then 1 daily for 4 d ays ZITHROMAX Z-REYNA 250 MG ORAL TABLET 404534 AZITHROMYCIN Inactive ZITHROMAX 250 MG ORAL TABLET 2 po today, then 1 po q days 2-5 20 14/03/21 ZITHROMAX 250 MG ORAL TABLET 290876 AZITHROMYCIN [place] [facility] ZITHROMAX Z-REYNA 250 MG ORAL TABLET 2 today, then 1 daily for 4 d ays ZITHROMAX Z-REYNA 250 MG ORAL TABLET 786195 AZITHROMYCIN Inactive CEFDINIR 300 MG ORAL CAPSULE 1 po BID x 10 days 06/21 CEFDINIR 300 MG ORAL CAPSULE 20020704 CEFDINIR Inactive ZITHROMAX 250 MG ORAL TABLET 2 po today, then 1 po q days 2-5 20 13/08/10 ZITHROMAX 250 MG ORAL TABLET 438688 AZITHROMYCIN [place] [facility] LEVAQUIN 500 MG ORAL TABLET 1 tablet by mouth daily 13/09/24 LEVAQUIN 500 MG ORAL TABLET 19971102 LEVOFLOXACIN Inactive SINGULAIR 10 MG ORAL TABLET 1 po qday for allergies 20 14/01/12 SINGULAIR 10 MG ORAL TABLET 20010504 MONTELUKAST SODIUM Inactive AMOXICILLIN 500 MG ORAL CAPSULE 2 po BID x 10 days 201 09/29/08 AMOXICILLIN 500 MG ORAL CAPSULE 752586 AMOXICILLIN Inactive PREDNISONE 20 MG ORAL TABLET 2 tabs daily for 3 days, 1 tab daily for 3 days, 1/2 tab daily for 2 days PREDNISONE 20 MG ORAL T ABLET 747050 PREDNISONE Inactive ZITHROMAX Z-REYNA 250 MG ORAL TABLET 2 today, then 1 daily for 4 d ays ZITHROMAX Z-REYNA 250 MG ORAL TABLET 605137 AZITHROMYCIN Inactive PREDNISONE 20 MG ORAL TABLET 2 tabs daily for 3 days, 1 tab daily for 3 days, 1/2 tab daily for 2 days PREDNISONE 20 MG ORAL T ABLET 442732 PREDNISONE Inactive ZITHROMAX 250 MG ORAL TABLET 2 po today, then 1 po q days 2-5 20 14/09/04 ZITHROMAX 250 MG ORAL TABLET 979406 AZITHROMYCIN [place] [facility] AMOXICILLIN 500 MG ORAL CAPSULE 1 cap by mouth three times a day AMOXICILLIN 500 MG ORAL CAPSULE 438719 AMOXICILLIN Inactive TERBINAFINE HCL 250 MG ORAL TABLET 1 qDay for nail fungus 7 TERBINAFINE HCL 250 MG ORAL TABLET 901926 TERBINAFINE HCL Inact nael AUGMENTIN 875-125 MG ORAL TABLET 1 po BID x 10 days 20 16/03/22 AUGMENTIN 875-125 MG ORAL TABLET AMOXICILLIN-POT CLAVULANATE Inactive PREDNISONE 20 MG ORAL TABLET 2 po qd x 5 days PREDNISONE 20 MG ORAL TABLET 057408 PREDNISONE Inactive AZITHROMYCIN 250 MG ORAL TABLET 2 po qd x 1 day, then 1 po q d x 4 days AZITHROMYCIN 250 MG ORAL TABLET 507715 AZITHROMY GIOAVNNI Inactive PREDNISONE 50 MG ORAL TABLET Take 50 mg dialy for 6 day s 7 PREDNISONE 50 MG ORAL TABLET 693241 PREDNISONE Inactive AUGMENTIN 875-125 MG ORAL TABLET 1 po BID x 10 days 20 18/04/16 AUGMENTIN 875-125 MG ORAL TABLET AMOXICILLIN-POT CLAVULANATE Inactive DOXYCYCLINE HYCLATE 100 MG ORAL CAPSULE 1 cap by mouth twice latasha ly DOXYCYCLINE HYCLATE 100 MG ORAL CAPSULE 1190712 DOXYCYCL INE HYCLATE Inactive PREDNISONE 20 MG ORAL TABLET Take 2 tabs day 1 and 2 and 1 t ab days 3 and 4 PREDNISONE 20 MG ORAL TABLET 493850 PREDNISONE Inactive AMOXICILLIN 500 MG ORAL CAPSULE 1 cap by mouth twice daily 10/21 AMOXICILLIN 500 MG ORAL CAPSULE 000750 AMOXICILLIN Inactive TRIAMCINOLONE ACETONIDE 0.1 % EXTERNAL OINTMENT Apply to affected areas TID PRN Rash/Itching for up 2 weeks TRIAMCINOLON E ACETONIDE 0.1 % EXTERNAL OINTMENT 6456617 TRIAMCINOLONE ACETONIDE Inactive ACYCLOVIR 800 MG ORAL TABLET 1 po 5 times daily x 7 days ACYCLOVIR 800 MG ORAL TABLET 345970 ACYCLOVIR Inactive Vital Signs Date Name Value [...] pressure, diastolic, repeated by physician 76 BP srniivasan blood pressure, diastolic 76 mm[Hg] BP srinivasan [...] Panel - Chemistry sodium, serum 137 mmol/L [phone]/10/08 carbon dioxide, venous blood 29.9 mmol/L 21.0-32 [...] 0.50 mg/dL 0.00-1.00 cholesterol, serum 324 mg/dL [phone]/10/08 triglyceride, serum, fasting 130 mg/dL 30-200 HDL [...] negative Encounters Code Encounter Date Provider Facility CPT-80232 Level 3 Est. Patient 14:41:20 RECONCILEMENT CLERK David lion [facility] CPT-10695 [id number] Vst-Est Level IV 09:06:31 C ESAU Hu MD [facility] CPT-71214 Level 3 Est. Patient 14:16:41 CDT David lion [facility] CPT-23337 Level 3 Est. Patient 13:57:55 CDT David lion [facility] CPT-83333 Level 3 Est. Patient 16:08:07 CDT David lion [facility] CPT-60025 Level 3 Est. Patient 16:53:54 CDT May haas MD [facility] CPT-16936 [id number] Vst-Est Level IV 08:41:[address] Carlton Hu MD [facility] CPT-46040 Level 3 Est. Patient 09:46:49 RECONCILEMENT CLERK David lion [facility] CPT-64725 [id number] Vst-Est Level III 11:12:16 CDT Yanet Bess DO [facility] CPT-90220 Level 3 Est. Patient 11:34:49 RECONCILEMENT CLERK Perez Mora MD [facility] CPT-89309 Level 4 Est. Patient 09:51:32 RECONCILEMENT CLERK Carlton rich MD [facility] CPT-36428 Level 3 Est. Patient 10:26:00 RECONCILEMENT CLERK Elise stephenson [facility] CPT-94545 Level 3 Est. Patient 13:35:41 RECONCILEMENT CLERK Carlton rich MD [facility] CPT-61507 Level 3 Est. Patient 10:03:52 RECONCILEMENT CLERK Carlton rich MD [facility] CPT-33609 Level 3 Est. Patient 12:17:50 CDT Hugo Restrepo MD [facility] CPT-77328 Level 3 Est. Patient 13:42:38 CDT Elise Hitchcock ll [facility] CPT-84789 Level 3 Est. Patient 13:23:51 CDT Diya cobian [facility] CPT-54802 Level 3 Est. Patient 14:22:19 RECONCILEMENT CLERK Diya cobian [facility] CPT-57059 Level 3 Est. Patient 10:11:46 CDT Carlton rich MD [facility] CPT-09757 Level 3 Est. Patient 17:29:43 CDT Elise Are ll CASTING OPERATOR HELPER [facility] CPT-78134 Level 3 Est. Patient 11:58:06 CDT Elise Are ll CASTING OPERATOR HELPER [facility] CPT-54074 Level 4 Est. Patient 14:36:51 CDT Carlton rich MD [facility] CPT-69582 Level 3 Est. Patient 18:16:00 RECONCILEMENT CLERK Blaine Freeman [facility] CPT-17485 Level 3 Est. Patient 09:45:49 RECONCILEMENT CLERK Carlton rich MD [facility] CPT-85247 Level 3 Est. Patient 13:19:20 CDT Carlton rich MD [facility]-24748 Level 3 Est. Patient 13:06:43 CDT Ridge tam DO [facility] CPT-96042 Level 3 Est. Patient 10:03:07 CDT Perez Mora MD [facility] CPT-58910 Level 3 Est. Patient 19:50:35 RECONCILEMENT CLERK Carlton rich MD [facility]-40658 Level 4 Est. Patient 18:05:01 RECONCILEMENT CLERK Carlton rich MD [facility] CPT-37780 Level 3 Est. Patient 10:45:55 RECONCILEMENT CLERK Hugo Restrepo MD [facility] CPT-55679 Level 3 Est. Patient 14:12:49 CDT Griffin lincoln [facility] CPT-86990 Level 3 Est. Patient 17:37:24 CDT Carlton rich MD [facility]-56494 Level 3 Est. Patient 16:51:54 CDT Carlton rich MD [facility]-18612 Level 3 Est. Patient 12:18:11 CDT Hugo Restrepo MD [facility] CPT-10677 Level 3 Est. Patient 11:30:25 CDT Marcy crisostomo MD PhD [facility] CPT-53264 Level 3 Est. Patient 12:00:47 RECONCILEMENT CLERK Carlton rich MD [facility] CPT-71820 Level 3 Est. Patient 16:31:06 RECONCILEMENT CLERK Carlton rich MD [facility] CPT-14708 Level 3 Est. Patient 16:23:24 RECONCILEMENT CLERK Ridge tam [facility] CPT-08466 Level 3 Est. Patient 12:34:12 CDT Carlton rich MD [facility] CPT-07523 Level 2 Est. Patient 15:43:33 CDT Robi armstrong MD [facility] CPT-76662 Level 4 Est. Patient 14:04:44 CDT Carlton rich MD [facility] CPT-36237 Level 3 Est. Patient 05:47:59 CDT Ridge tam [facility] CPT-14594 Level 3 Est. Patient 13:12:53 RECONCILEMENT CLERK Carlton rich MD [facility] CPT-65937 Level 3 Est. Patient 14:26:53 CDT Hugo Restrepo MD [facility] Procedures Code Procedure Name Date Entry Date Standard Desc ription [id number] (4274F 2P) Patient Reason Influenza immu nization not administered 14:13:39 RECONCILEMENT CLERK CPT-50079 Venipuncture Draw Fee 15:53:34 CDT CPT-000 Give Appropriate Flu Vaccine 14:14:31 CDT 2 CPT-J1040 Depo Medrol 80 mg (Methyl Prednisolone A cetate) 10:42:44 CDT CPT-J1100 Decadron 8mg (Dexamethasone) 10:42:44 CDT 2 CPT-J0696 Rocephin 1gm Inj Solr 14:32:13 CDT CPT-J1020 Depo Medrol 60 mg (Methyl Prednisolone A cetate) 14:32:13 CDT CPT-J1100 Decadron 6mg (Dexamethasone) 14:32:13 CDT 2 CPT-05804 Hip bilat min 2V w AP pelvis 13:16:20 CDT 2 CPT-14276 Pelvis only 13:07:33 CDT CPT-77139 Spec Collection and Handling Fee 11:25:12 C DT CPT-90905 Fluzone Quadrivalent Intramuscular Suspe nsion 0.5 ML 14:31:55 CDT CPT-37171 Abx/Therapy Injection 13:28:47 RECONCILEMENT CLERK CPT-J2930 Solu Medrol 125 mg (Methyl Prednisolone Sodium Succinate) 12:00:47 RECONCILEMENT CLERK CPT-57313 Venipuncture Draw Fee 11:33:31 CDT CPT-34970 EKG Trac and Interp 11:21:09 CDT CPT-84981 Chest 2V Frontal and Lat 11:21:09 CDT 12/15 CPT-75333 Venipuncture Draw Fee 08:02:34 CDT CPT-68273 Chest 2V Frontal and Lat 05:47:59 CDT 06/05
--- OUTSIDE RECORDS SUMMARY | 2019-10-08 09:51 | XMS REPORT | Clinical Summary ---
[...] URI 465.9 Inactive Ridge Bess DO [place] upper respiratory infections of unspecified site Body Mass Index 35.0-35.9 Adult Refinement 2017 Ridge Bess DO Body Mass Index 35.0-35.9, adult BMI 34-34.9 Refinement Cherelle Torres RN Body Mass Index 35.0-35.9, adult BMI 35-35.9 Refinement David Marianneamisha RICEN Body Mass Index 35.0-35.9, adult BMI 34-34.9 Refinement May Vivar MD Body Mass Index 35.0-35.9, adult BMI 35-35.9 Refinement David Marianne SERVICE DELIVERY ANALYST Body Mass Index 35.0-35.9, adult BMI 33-33.9 Active David Marianne SERVICE DELIVERY ANALYST Body Mass Index 35.0-35.9, adult Upper respiratory infection, viral 465.9 Active 2 Perez Mora MD Acute upper respiratory infections of un specified site Obesity Class I (BMI 30-34.9) Refinement Jose Torres RN Obesity, unspecified Morbid obesity due to excess [facility] David Marianneamisha RICEN Obesity, [...] nonspecific skin eruption 782.1 Active David Marianne SERVICE DELIVERY ANALYST Rash and other nonspecific skin eruption Pharyngitis, acute / sore throat 462 Active 201 12/06/23 David Marianne SERVICE DELIVERY ANALYST Acute pharyngitis Shingles 053.9 Active David Marianne SERVICE DELIVERY ANALYST Herpes zoster without mention of complication Allergic [...] DAILY WITH EXTRA STRENGTH TYLENOL TRAMADOL HCL 14179572490 Active Carlton Hu MD Active ALPRAZOLAM 0.5 MG TABS TAKE 1 TABLET BY MOUTH ONCE DAILY NEEDED ALPRAZOLAM 39714547962 Active Carlton Hu MD Active GABAPENTIN 100 MG ORAL CAPSULE TAKE 1 CAPSULE BY MOUTH TWICE DAILY FOR FIBROMYALGIA GABAPENTIN 23460667248 Active Carlton Hu MD Active ELMIRON 100MG CAP TAKE 2 CAPSULES BY MOUTH IN THE MORNING AND 1 CAPSULE AT BEDTIME PENTOSAN POLYSULFATE SODIUM 44556858776 Active May Vivar MD Active TOPIRAMATE 100 MG TABS TAKE 1 TABLET BY MOUTH TWICE DAILY 1 TOPIRAMATE 25735532453 Active Carlton Hu MD Active ATORVASTATIN CALCIUM 10 MG ORAL TABLET 1 pill by mouth night ly, for cholesterol ATORVASTATIN CALCIUM 52454934645 Active Columba Parrish Active TRIAMCINOLONE ACETONIDE 0.1 % EXTERNAL CREAM apply bid spari ngly to rash TRIAMCINOLONE ACETONIDE 15696084861 No Longer Active Carlton Hu MD Active TYLENOL WITH CODEINE #3 300-30 MG ORAL TABLET ACETAMINOPHEN-CODEINE 20693848409 No Longer Active Carlton Hu MD Active TYLENOL WITH CODEINE #3 300-30 MG ORAL TABLET 1-2 po q6hr PRN Pa in ACETAMINOPHEN-CODEINE 29500691920 No Longer Active Dvaid Lopes AP RN Active ACYCLOVIR 800 MG ORAL TABLET 1 po 5 times daily x 7 days ACYCLOVIR 03464030980 No Longer Active David Marianne SERVICE DELIVERY ANALYST Active TOPAMAX 100 MG ORAL TABLET 1 by mouth twice daily TOPIRAMATE 16884694481 Active Carlton Hu MD Active TRIAMCINOLONE ACETONIDE 0.1 % EXTERNAL OINTMENT Apply to affected areas TID PRN Rash/Itching for up 2 weeks TRIAMCINOLONE ACETON KAYLA 52597434564 No Longer Active David Lopes APRN Active AMOXICILLIN 500 MG ORAL CAPSULE 1 cap by mouth twice daily 10/21 AMOXICILLIN 24488613059 No Longer Active David Lopes APRN Active CYMBALTA 30 MG ORAL CAPSULE DELAYED RELEASE PARTICLES 1 cap by mouth daily for depression DULOXETINE HCL 48020741119 No Longer Active Carlton Hu MD Active CYMBALTA 60 MG ORAL CAPSULE DELAYED RELEASE PARTICLES 1 cap by mouth daily for mood and pain DULOXETINE HCL 87650789245 Active Carlton Hu MD Active TUSSIONEX PENNKINETIC ER 10-8 MG/5ML ORAL SUSPENSION E XTENDED RELEASE 5ml po q12hr PRN Cough HYDROCOD POLST-CHLORPHEN POLST 07311785630 Active Carlton Hu MD Active PREDNISONE 20 MG ORAL TABLET Take 2 tabs day 1 and 2 and 1 t ab days 3 and 4 PREDNISONE 56705196754 No Longer Active David Lopes APRN Active DOXYCYCLINE HYCLATE 100 MG ORAL CAPSULE 1 cap by mouth twice latasha ly DOXYCYCLINE HYCLATE 15399211924 No Longer Active Davdi Marianne SERVICE DELIVERY ANALYST Active TOPAMAX 100 MG ORAL TABLET Take 1 tablet po bid TOPIRAMATE 55252884884 No Longer Active David Marianne SERVICE DELIVERY ANALYST Active TUSSIONEX PENNKINETIC ER 10-8 MG/5ML ORAL SUSPENSION E XTENDED RELEASE 5ml po q12hr PRN Cough HYDROCOD POLST-CHLORPHEN POLST 5 4067078286 No Longer Active David Marianne SERVICE DELIVERY ANALYST Active AUGMENTIN 875-125 MG ORAL TABLET 1 po BID x 10 days 20 18/04/16 AMOXICILLIN-POT CLAVULANATE 93603740659 No Longer Active David Marianne SERVICE DELIVERY ANALYST Active PREDNISONE 50 MG ORAL TABLET Take 50 mg dialy for 6 day s 7 PREDNISONE 03840110792 No Longer Active David Marianne SERVICE DELIVERY ANALYST Active TUSSIONEX PENNKINETIC ER 10-8 MG/5ML ORAL SUSPENSION E XTENDED RELEASE 5ml po q12hr PRN Cough HYDROCOD POLST-CHLORPHEN POLST 5 0250543213 No Longer Active Cherelle Torers RN Active PREDNISONE 20 MG ORAL TABLET two tabs by mouth today, then one tab by mouth days two and three and four PREDNISONE 84268788026 No Lo nger Active Cherelle Torres RN Active AZITHROMYCIN 250 MG ORAL TABLET 2 po qd x 1 day, then 1 po q d x 4 days AZITHROMYCIN 37793338797 No Longer Active Ridge Bess DO Active PREDNISONE 20 MG ORAL TABLET 2 po qd x 5 days P REDNISONE 42998918687 No Longer Active Perez Mora MD Active PROAIR HFA 108 (90 BASE) MCG/ACT INHALATION AEROSOL SO LUTION 2 puffs four times a day as needed ALBUTEROL SULFATE 26959696917 No Long er Active Becky FUENTES Active ASPIRIN 81 MG ORAL TABLET 1 po qd ASPIRIN 92959678055 Active Carlton Hu MD Active PREDNISONE 20 MG ORAL TABLET 1 tab twice daily for 3 d ay, then one daily for three days PREDNISONE 68881240175 No Longer Active Carlton Hu MD Active AUGMENTIN 875-125 MG ORAL TABLET 1 po BID x 10 days 16/03/22 AMOXICILLIN-POT CLAVULANATE 00105357259 No Longer Active Elise Garcia APRN Active TERBINAFINE HCL 250 MG ORAL TABLET 1 qDay for nail fungus 7 TERBINAFINE HCL 71892311115 No Longer Active Carlton Hu MD A ctive AMOXICILLIN 500 MG ORAL CAPSULE 1 cap by mouth three times a day AMOXICILLIN 22184672663 No Longer Active Carlton Hu MD Active ELMIRON 100 MG ORAL CAPSULE 2 tablets in the am and 1 tablet at hs PENTOSAN POLYSULFATE SODIUM 26101127625 No Longer Active Robert jade Hu MD Active MUCINEX D 60-600 MG ORAL TABLET EXTENDED RELEASE 12 HOUR 1 t ab po q am PSEUDOEPHEDRINE-GUAIFENESIN 86148244465 No Longer Act nael Carlton Hu MD Active MUCINEX DM MAXIMUM STRENGTH 60-1200 MG ORAL TABLET EXT ENDED RELEASE 12 HOUR 1 tab po q am DEXTROMETHORPHAN-GUAIFENESIN 38206389708 No Longer Active Carlton Hu MD Active TUSSIONEX PENNKINETIC ER 10-8 MG/5ML ORAL SUSPENSION E XTENDED RELEASE 5ml po q12hr PRN Cough HYDROCOD POLST-CHLORPHEN POLST 5 6882204018 No Longer Active Carlton Hu MD Active POTASSIUM CHLORIDE ER 20 MEQ ORAL TABLET EXTENDED RELE ASE Take 1 by mouth 4 times daily for 7 days POTASSIUM CHLORIDE 94657864142 No Longer Active Carlton Hu MD Active ZITHROMAX 250 MG ORAL TABLET 2 po today, then 1 po q days 2-5 20 14/09/04 AZITHROMYCIN 22022139608 No Longer Active Elise Garcia APRN Active TUSSIONEX PENNKINETIC ER 10-8 MG/5ML ORAL SUSPENSION E XTENDED RELEASE 5 ml twice a day as needed for cough HYDROCOD POLST-CHLORPH EN POLST 88709468787 No Longer Active Elise Garcia APRN Active MONTELUKAST SODIUM 10 MG ORAL TABLET 1 po daily for Allergy MONTELUKAST SODIUM 52494143174 Active Carlton Hu MD Ac tive TUSSIONEX PENNKINETIC ER 10-8 MG/5ML ORAL SUSPENSION E XTENDED RELEASE 5ml po q12hr PRN Cough HYDROCOD POLST-CHLORPHEN POLST 5 1754784597 No Longer Active Hugo Restrepo MD Active LYRICA 100 MG ORAL CAPSULE Take 1 tab po BID for fibromyalgia 20 11/08/21 PREGABALIN 85804674127 No Longer Active Elise Garcia APRN A ctive PREDNISONE 20 MG ORAL TABLET 2 tabs daily for 3 days, 1 tab daily for 3 days, 1/2 tab daily for 2 days PREDNISONE 62545210286 No Longer Active Venullina Cesarl SERVICE DELIVERY ANALYST Active TUSSIONEX PENNKINETIC ER 10-8 MG/5ML ORAL SUSPENSION E XTENDED RELEASE 5 mL PO q 12 hrs PRN cough HYDROCOD POLST-CHLORPHEN POLST 294670 44048 No Longer Active Jillina Frazell SERVICE DELIVERY ANALYST Active FLUTICASONE PROPIONATE 50 MCG/ACT NASAL SUSPENSION 2 s prays each nostril daily until bottle is empty FLUTICASONE PROPIONATE 741001179 99 No Longer Active Jillina Frazell SERVICE DELIVERY ANALYST Active ASMANEX 60 METERED DOSES 220 MCG/INH INHALATION AEROSO L POWDER BREATH ACTIVATED 1 puff bid with rinse after MOMETASONE FUROATE 7266453 4102 No Longer Active Jillina Frazell SERVICE DELIVERY ANALYST Active ZITHROMAX Z-REYNA 250 MG ORAL TABLET 2 today, then 1 daily for 4 d ays AZITHROMYCIN 32270437753 No Longer Active Elise Garica APRN Active TUSSIONEX PENNKINETIC ER 10-8 MG/5ML ORAL SUSPENSION E XTENDED RELEASE 5ml po q12hr PRN Cough HYDROCOD POLST-CHLORPHEN POLST 5 6678421020 No Longer Active Elise Garcia SERVICE DELIVERY ANALYST Active PREDNISONE 20 MG ORAL TABLET 2 tabs daily for 3 days, 1 tab daily for 3 days, 1/2 tab daily for 2 days PREDNISONE 84556017948 No Longer Active Diya De Guzman SERVICE DELIVERY ANALYST Active AMOXICILLIN 500 MG ORAL CAPSULE 2 po BID x 10 days 201 09/29/08 AMOXICILLIN 86878824483 No Longer Active Diya De Guzman SERVICE DELIVERY ANALYST Act nael SINGULAIR 10 MG ORAL TABLET 1 po qday for allergies 20 14/01/12 MONTELUKAST SODIUM 23048172543 No Longer Active Carlton Hu MD Active LEVAQUIN 500 MG ORAL TABLET 1 tablet by mouth daily 13/09/24 LEVOFLOXACIN 76780296482 No Longer Active Carlton Hu MD Acti ve FLUTICASONE PROPIONATE 50 MCG/ACT NASAL SUSPENSION 2 s prays each nostril daily for 2 weeks, then 1 spray each nostril daily. FLUTICASONE PROPIONATE 00692258810 Active Carlton Hu MD Active ZITHROMAX 250 MG ORAL TABLET 2 po today, then 1 po q days 2-5 13/08/10 AZITHROMYCIN 36104675098 No Longer Active Elise Garcia APRN Active CEFDINIR 300 MG ORAL CAPSULE 1 po BID x 10 days CEFDINIR 51590004417 No Longer Active Calrton Hu MD Active ZOCOR 40 MG ORAL TABLET 1 tab by mouth daily SI MVASTATIN 82634526016 No Longer Active Carlton Hu MD Active CYCLOBENZAPRINE HCL 10 MG ORAL TABLET 1 tablet by mouth BID prn had pain CYCLOBENZAPRINE HCL 02935423207 No Longer Active Jayden Hu MD Active LEVOFLOXACIN 500 MG ORAL TABLET 1 tab PO daily x 10 days LEVOFLOXACIN 78716646919 No Longer Active Carlton Hu MD Acti ve PREDNISONE 20 MG ORAL TABLET 3 tab PO qd x 2d, 2 tab P O qd x 2d, 1 tab PO qd x 2d, 1/2 tab PO qd x 2d PREDNISONE 67958155913 No Lo nger Active Carlton Hu MD Active FLUTICASONE PROPIONATE 50 MCG/ACT NASAL SUSPENSION 1 t o 2 sprays each nostril daily FLUTICASONE PROPIONATE 48193400101 No Longer Ac tive Blaine HERNANDEZ Active CHERATUSSIN AC 100-10 MG/5ML ORAL SYRUP 1 tsp by mouth every 4 hours as needed for cough GUAIFENESIN-CODEINE 30130382974 No Longe r Active Blaine HERNANDEZ Active PROMETHAZINE-CODEINE 6.25-10 MG/5ML ORAL SYRUP 1 tsp b y mouth every 6 hours if needed for cough PROMETHAZINE-CODEINE 22295600768 No Longer Active Blaine HERNANDEZ Active CHERATUSSIN AC 100-10 MG/5ML ORAL SYRUP 1 tsp by mouth every 4 hours as needed for cough GUAIFENESIN-CODEINE 81565753322 No Longe r Active Blaine HERNANDEZ Active ZITHROMAX Z-REYNA 250 MG ORAL TABLET 2 today, then 1 daily for 4 d ays AZITHROMYCIN 68279240798 No Longer Active Columba Raida Act nael ZITHROMAX 250 MG ORAL TABLET 2 po today, then 1 po q days 2-5 20 14/03/21 AZITHROMYCIN 41419337719 No Longer Active Carlton Hu MD Active ZITHROMAX Z-REYNA 250 MG ORAL TABLET 2 today, then 1 daily for 4 d ays AZITHROMYCIN 72452360081 No Longer Active Columba Raida Act nael AUGMENTIN 875-125 MG ORAL TABLET 1 po BID x 10 days 13/01/20 AMOXICILLIN-POT CLAVULANATE 39915452228 No Longer Active Diya De Guzman APRN Active ZITHROMAX 250 MG ORAL TABLET 2 po today, then 1 po q days 2-5 20 12/08/14 AZITHROMYCIN 50348386101 No Longer Active Carlton Hu MD Active PREMARIN 0.625 MG ORAL TABLET TAKE 1 TAB BY MOUTH DAILY ESTROGENS CONJUGATED 67954855379 No Longer Active Ridge Bess DO A ctive CYMBALTA 30 MG ORAL CAPSULE DELAYED RELEASE PARTICLES 1 cap by mouth daily DULOXETINE HCL 85046048532 No Longer Active Ridge tam DO Active AMOXICILLIN 500 MG ORAL CAPSULE 1 tab by mouth 3 times daily x 10 days AMOXICILLIN 99646275133 No Longer Active Carlton bustamante MD Active AMOXICILLIN 500 MG ORAL CAPSULE 1 tab by mouth 3 times daily x 10 days AMOXICILLIN 70561652901 No Longer Active Carlton bustamante MD Active PROMETHAZINE-CODEINE 6.25-10 MG/5ML ORAL SYRUP 1 tsp b y mouth every 8 hours prn cough PROMETHAZINE-CODEINE 20834904298 No Longer Acti ve Carlton Hu MD Active MEDROL 4 MG ORAL TABLET THERAPY PACK 6 pills x 1 day, then 5 pills x 1 day then 4 pills x 1 day, then 3 pills x 1 day, then 2 pills x 1 day, then 1 pill x 1 day, then stop METHYLPREDNISOLONE 44688787763 No Long er Active Perez Mora MD Active AZITHROMYCIN 250 MG ORAL TABLET 2 po qd x 1 day, then 1 po q d x 4 days AZITHROMYCIN 00548292631 No Longer Active Perez Ambriz MD Active SYMBICORT 160-4.5 MCG/ACT INHALATION AEROSOL 2 puffs bid wit h rinse after BUDESONIDE-FORMOTEROL FUMARATE 29870042689 N o Longer Active Perez Mora MD Active LYRICA 75 MG ORAL CAPSULE TAKE 1 CAPSULE BY MOUTH TWICE DAILY PREGABALIN 29299430337 No Longer Active Carlton Hu MD Acti ve TOPAMAX 25 MG ORAL TABLET 1 qHS x 1 week, then 1 BID x 1 week, then 1 qAM and 2 qHS x 1 week, then 2 BID (migraine prevention) T OPIRAMATE 30265864249 No Longer Active Jerica FUENTES Active TOPAMAX 50 MG ORAL TABLET take 1 tab po BID for migraines. 07/02 TOPIRAMATE 88363765137 No Longer Active Jerica Jonesema FUENTES Active TRIAMCINOLONE ACETONIDE 0.1 % EXTERNAL CREAM apply three roger es daily prn rash TRIAMCINOLONE ACETONIDE 63653677350 No Longer Active Carlton Hu MD Active PAXIL 40 MG ORAL TABLET take 1 tab po qday for depression 0 PAROXETINE HCL 47317357196 Active Carlton Hu MD Active CHERATUSSIN AC 100-10 MG/5ML ORAL SYRUP 5ml po q6hr PRN Cough 20 13/04/14 GUAIFENESIN-CODEINE 75731391572 No Longer Active Carlton Hu MD Active MEDROL 4 MG ORAL TABLET THERAPY PACK 6 tabs on day 1, 5 tabs on day 2, 4 tabs on day 3, 3 tabs on day 4, 2 tabs on day 5, 1 tab on day 6 2013 METHYLPREDNISOLONE 02980490805 No Longer Active Perez Mora MD Active AZITHROMYCIN 250 MG ORAL TABLET 2 po qd x 1 day, then 1 po q d x 4 days AZITHROMYCIN 87959728916 No Longer Active Perez Ambriz MD Active PROPRANOLOL HCL 60 MG ORAL TABLET 1 PO Q D PROPRANOLOL HCL 45989255430 No Longer Active Perez Mora MD Activ e CHERATUSSIN AC 100-10 MG/5ML ORAL SYRUP take one tsp po Q 6h ours prn cough GUAIFENESIN-CODEINE 70430848494 No Longer Active Zia Mora MD Active AUGMENTIN 875-125 MG ORAL TABLET 1 tab by mouth twice daily with food AMOXICILLIN-POT CLAVULANATE 96751143381 No Longer Act nael Perez Mora MD Active CHERATUSSIN AC 100-10 MG/5ML ORAL SYRUP 1 tsp by mouth every 4 hours as needed for cough GUAIFENESIN-CODEINE 00267966892 No Longe r Active Hugo Restrepo MD Active ACETAMINOPHEN-CODEINE #3 300-30 MG ORAL TABLET 1 PO Q 4-6 HRS IA N PAIN ACETAMINOPHEN-CODEINE 74931188306 No Longer Active Hugo Restrepo MD Active LEVAQUIN 500 MG ORAL TABLET take one po QD LEVO FLOXACIN 20883025743 No Longer Active Griffin HERNANDEZ Active PREDNISONE 20 MG ORAL TABLET Take 3 tabs daily for 3 d ays, 2 tabs daily for 3 days, 1 tab daily for 3 days, 1/2 tab daily for 3 days 11/07 PREDNISONE 26750708960 No Longer Active Carlton Hu MD Acti ve AVELOX 400 MG ORAL TABLET 1 tab by mouth daily MOXIFLOXACIN HCL 37818366174 No Longer Active Carlton Hu MD Active CHERATUSSIN AC 100-10 MG/5ML ORAL SYRUP 1 tsp by mouth every 4 hours as needed for cough GUAIFENESIN-CODEINE 98377362762 No Longe r Active Hugo Restrepo MD Active AVELOX 400 MG ORAL TABLET 1 tab by mouth daily MOXIFLOXACIN HCL 54471273796 No Longer Active Marcy De La Rosa MD PhD Active TERBINAFINE HCL 250 MG ORAL TABLET 1 qDay T ERBINAFINE HCL 38762525837 No Longer Active Marcy De La Rosa MD PhD Active CHERATUSSIN AC 100-10 MG/5ML ORAL SYRUP 1 tsp by mouth every 4 hours as needed for cough GUAIFENESIN-CODEINE 75085093109 No Longe r Active Marcy De La Rosa MD PhD Active AVELOX 400 MG ORAL TABLET 1 tab by mouth daily MOXIFLOXACIN HCL 27464761888 No Longer Active Marcy De La Rosa MD PhD Active HYDROCODONE-ACETAMINOPHEN 5-325 MG ORAL TABLET 1 po q 6hr PRN co ugh HYDROCODONE-ACETAMINOPHEN 13065441486 No Longer Active Marcy De La Rosa MD PhD Active PREDNISONE 20 MG ORAL TABLET 2 tabs daily for 3 days, 1 tab daily for 3 days, 1/2 tab daily for 2 days PREDNISONE 92992404226 No Longer Active Carlton Hu MD Active CEFDINIR 300 MG ORAL CAPSULE by mouth twice a day 2011 CEFDINIR 94560804009 No Longer Active Carlton Hu MD Acti ve HYDROCHLOROTHIAZIDE 25 MG ORAL TABLET 1 TAB PO DAILY HYDROCHLOROTHIAZIDE 39446987987 Active Carlton Hu MD A ctive ACETAMINOPHEN-CODEINE #3 300-30 MG ORAL TABLET 1 tablet po q 4-6 hrs prn pain ACETAMINOPHEN-CODEINE 48728119654 No Longer Active Ridge Bess DO Active ZITHROMAX 250 MG ORAL TABLET 2 po today, then 1 po q days 2-5 20 03/07/07 AZITHROMYCIN 42424936631 No Longer Active Carlton Hu MD Active CHERATUSSIN AC 100-10 MG/5ML ORAL SYRUP take 1 tsp po q4-6 h ours prn cough GUAIFENESIN-CODEINE 28270759581 No Longer Active Jayden Hu MD Active ACETAMINOPHEN-CODEINE #3 300-30 MG ORAL TABLET 1 PO Q 4-6 HR PRN PAIN ACETAMINOPHEN-CODEINE 35314414023 No Longer Active Da raimundo Hu MD Active LORTAB 7.5-500 MG/15ML ORAL ELIXIR 7.5 ml po q 4 hour prn cough HYDROCODONE-ACETAMINOPHEN 93418081597 No Longer Active Carlton Hu MD Active PREDNISONE 20 MG ORAL TABLET 1 po bid 3 days, then 1 po q day 3 days PREDNISONE 28986592976 No Longer Active Carlton Hu MD Active CEFDINIR 300 MG ORAL CAPSULE by mouth twice a day 2011 CEFDINIR 42257249755 No Longer Active Carlton Hu MD Acti ve CEFDINIR 300 MG ORAL CAPSULE by mouth twice a day 2010 CEFDINIR 55095061714 No Longer Active Carltno Hu MD Acti ve CEFDINIR 300 MG ORAL CAPSULE by mouth twice a day 2010 CEFDINIR 73916849063 No Longer Active Carlton Hu MD Acti ve TESSALON PERLES 100 MG ORAL CAPSULE 1 tablet by mouth 3 times daily as needed for cough BENZONATATE 73986463213 No Longer Active Carlton Hu MD Active CEFDINIR 300 MG ORAL CAPSULE by mouth twice a day 2010 CEFDINIR 64258214674 No Longer Active Carlton Hu MD Acti ve ZITHROMAX Z-REYNA 250 MG ORAL TABLET 2 today, then 1 daily for 4 d ays AZITHROMYCIN 39258263771 No Longer Active Hugo Restrepo MD Active TESSALON PERLES 100 MG ORAL CAPSULE 1 tablet by mouth 3 times daily as needed for cough TESSALON PERLES 100 MG ORAL CAPSULE 63200 7 BENZONATATE Inactive PREDNISONE 20 MG ORAL TABLET 1 po bid 3 days, then 1 po q day 3 days PREDNISONE 20 MG ORAL TABLET 990076 PREDNISONE [place] ctive LORTAB 7.5-500 MG/15ML ORAL ELIXIR 7.5 ml po q 4 hour prn cough LORTAB 7.5-500 MG/15ML ORAL ELIXIR HYDROCODONE-A CETAMINOPHEN Inactive ACETAMINOPHEN-CODEINE #3 300-30 MG ORAL TABLET 1 PO Q 4-6 HR PRN PAIN ACETAMINOPHEN-CODEINE #3 300-30 MG ORAL TABLET 9 16802 ACETAMINOPHEN-CODEINE Inactive CHERATUSSIN AC 100-10 MG/5ML ORAL SYRUP take 1 tsp po q4-6 h ours prn cough CHERATUSSIN AC 100-10 MG/5ML ORAL SYRUP 891366 GUAIFENESIN-CODEINE Inactive ACETAMINOPHEN-CODEINE #3 300-30 MG ORAL TABLET 1 tablet po q 4-6 hrs prn pain ACETAMINOPHEN-CODEINE #3 300-30 MG ORAL TABLET 482000 ACETAMINOPHEN-CODEINE Inactive HYDROCODONE-ACETAMINOPHEN 5-325 MG ORAL TABLET 1 po q 6hr PRN co ugh HYDROCODONE-ACETAMINOPHEN 5-325 MG ORAL TABLET 906767 HYDROCODONE-ACETAMINOPHEN Inactive AVELOX 400 MG ORAL TABLET 1 tab by mouth daily AVELOX 400 MG ORAL TABLET MOXIFLOXACIN HCL Inactive CHERATUSSIN AC 100-10 MG/5ML ORAL SYRUP 1 tsp by mouth every 4 hours as needed for cough CHERATUSSIN AC 100-10 MG/5ML ORAL SYRUP 9 08813 GUAIFENESIN-CODEINE Inactive TERBINAFINE HCL 250 MG ORAL TABLET 1 qDay 07/08 TERBINAFINE HCL 250 MG ORAL TABLET 358274 TERBINAFINE HCL Inactive CHERATUSSIN AC 100-10 MG/5ML ORAL SYRUP 1 tsp by mouth every 4 hours as needed for cough CHERATUSSIN AC 100-10 MG/5ML ORAL SYRUP 9 23738 GUAIFENESIN-CODEINE Inactive ACETAMINOPHEN-CODEINE #3 300-30 MG ORAL TABLET 1 PO Q 4-6 HRS IA N PAIN ACETAMINOPHEN-CODEINE #3 300-30 MG ORAL TABLET 605613 ACETAMINOPHEN-CODEINE Inactive CHERATUSSIN AC 100-10 MG/5ML ORAL SYRUP 1 tsp by mouth every 4 hours as needed for cough CHERATUSSIN AC 100-10 MG/5ML ORAL SYRUP 9 85384 GUAIFENESIN-CODEINE Inactive AUGMENTIN 875-125 MG ORAL TABLET 1 tab by mouth twice daily with food AUGMENTIN 875-125 MG ORAL TABLET AMOXICIL MADELINE-POT CLAVULANATE Inactive CHERATUSSIN AC 100-10 MG/5ML ORAL SYRUP take one tsp po Q 6h ours prn cough CHERATUSSIN AC 100-10 MG/5ML ORAL SYRUP 049433 GUAIFENESIN-CODEINE Inactive PROPRANOLOL HCL 60 MG ORAL TABLET 1 PO Q D PROPRANOLOL HCL 60 MG ORAL TABLET 720674 PROPRANOLOL HCL Inactive TOPAMAX 50 MG ORAL TABLET take 1 tab po BID for migraines. 07/02 TOPAMAX 50 MG ORAL TABLET 610098 TOPIRAMATE Inacti ve TOPAMAX 25 MG ORAL TABLET 1 qHS x 1 week, then 1 BID x 1 week, then 1 qAM and 2 qHS x 1 week, then 2 BID (migraine prevention) TOPAMAX 25 MG ORAL TABLET 685500 TOPIRAMATE Inactive LYRICA 75 MG ORAL CAPSULE TAKE 1 CAPSULE BY MOUTH TWICE DAILY LYRICA 75 MG ORAL CAPSULE 041325 PREGABALIN Inactive SYMBICORT 160-4.5 MCG/ACT INHALATION AEROSOL 2 puffs bid wit h rinse after SYMBICORT 160-4.5 MCG/ACT INHALATION AEROSOL BUDESONIDE- FORMOTEROL FUMARATE Inactive PROMETHAZINE-CODEINE 6.25-10 MG/5ML ORAL SYRUP 1 tsp b y mouth every 8 hours prn cough PROMETHAZINE-CODEINE 6.25-10 MG/ 5ML ORAL SYRUP 482504 PROMETHAZINE-CODEINE Inactive CYMBALTA 30 MG ORAL CAPSULE DELAYED RELEASE PARTICLES 1 cap by mouth daily CYMBALTA 30 MG ORAL CAPSULE DELAYED RELE ASE PARTICLES 861006 DULOXETINE HCL Inactive PREMARIN 0.625 MG ORAL TABLET TAKE 1 TAB BY MOUTH DAILY PREMARIN 0.625 MG ORAL TABLET ESTROGENS CONJUGATED Inactive CHERATUSSIN AC 100-10 MG/5ML ORAL SYRUP 1 tsp by mouth every 4 hours as needed for cough CHERATUSSIN AC 100-10 MG/5ML ORAL SYRUP 9 50046 GUAIFENESIN-CODEINE Inactive PROMETHAZINE-CODEINE 6.25-10 MG/5ML ORAL SYRUP 1 tsp b y mouth every 6 hours if needed for cough PROMETHAZINE-CODEINE 6.25-10 MG/5ML ORAL SYRUP 104580 PROMETHAZINE-CODEINE Inactive CHERATUSSIN AC 100-10 MG/5ML ORAL SYRUP 1 tsp by mouth every 4 hours as needed for cough CHERATUSSIN AC 100-10 MG/5ML ORAL SYRUP 9 10072 GUAIFENESIN-CODEINE Inactive FLUTICASONE PROPIONATE 50 MCG/ACT NASAL SUSPENSION 1 t o 2 sprays each nostril daily FLUTICASONE PROPIONATE 50 MCG/AC T NASAL SUSPENSION 7978153 FLUTICASONE PROPIONATE Inactive PREDNISONE 20 MG ORAL TABLET 3 tab PO qd x 2d, 2 tab P O qd x 2d, 1 tab PO qd x 2d, 1/2 tab PO qd x 2d PREDNISONE 20 MG ORAL TAB LET 970603 PREDNISONE Inactive LEVOFLOXACIN 500 MG ORAL TABLET 1 tab PO daily x 10 days LEVOFLOXACIN 500 MG ORAL TABLET 639460 LEVOFLOXACIN Inactive CYCLOBENZAPRINE HCL 10 MG ORAL TABLET 1 tablet by mouth BID prn had pain CYCLOBENZAPRINE HCL 10 MG ORAL TABLET 914228 CYCLOBENZAPRINE HCL Inactive ZOCOR 40 MG ORAL TABLET 1 tab by mouth daily 4 ZOCOR 40 MG ORAL TABLET 267680 SIMVASTATIN Inactive TUSSIONEX PENNKINETIC ER 10-8 MG/5ML [...] FLUTICASONE PROPIO EFE 50 MCG/ACT NASAL SUSPENSION 2182300 FLUTICASONE PROPIONATE Inactive TUSSIONEX PENNKINETIC ER 10-8 MG/5ML ORAL SUSPENSION E XTENDED RELEASE 5 mL PO q 12 hrs PRN cough TUSSIONEX PENNKINETI C ER 10-8 MG/5ML ORAL SUSPENSION EXTENDED RELEASE HYDROCOD POLST-CHLORPHEN POLST I nactive LYRICA 100 MG ORAL CAPSULE Take 1 tab po BID for fibromyalgia 20 11/08/21 LYRICA 100 MG ORAL CAPSULE 784166 PREGABALIN Inact nael TUSSIONEX PENNKINETIC ER 10-8 [...] three days PREDNISONE 20 MG ORAL TABLET 076597 PREDNIS ONE Inactive PROAIR HFA 108 (90 BASE) MCG/ACT INHALATION AEROSOL SO LUTION 2 puffs four times a day as needed PROAIR HFA 108 (90 B ASE) MCG/ACT INHALATION AEROSOL SOLUTION ALBUTEROL SULFATE Inactive PREDNISONE 20 MG ORAL TABLET two tabs by mouth today, then one tab by mouth days two and three and four PREDNISONE 20 MG ORAL TAB LET [id number] PREDNISONE Inactive TUSSIONEX PENNKINETIC ER 10-8 MG/5ML [...] bid 04/20 TOPAMAX 100 MG ORAL TABLET [id number] TOPIRAMATE Inactive CYMBALTA 30 MG ORAL CAPSULE DELAYED RELEASE PARTICLES 1 cap by mouth daily for depression CYMBALTA 30 MG ORAL CAPSULE DELAYED RELEASE PARTICLES [id number] DULOXETINE HCL Inactive TYLENOL WITH CODEINE #3 300-30 MG ORAL TABLET 1-2 po q6hr PRN Pa in TYLENOL WITH CODEINE #3 300-30 MG ORAL TABLET [id number] ACETAMINOPHEN-CODEINE Inactive TYLENOL WITH CODEINE #3 300-30 MG ORAL TABLET TYLENOL WITH CODEINE #3 300-30 MG ORAL TABLET 761388 ACETAMINOPHEN-CODEINE Inactive TRIAMCINOLONE ACETONIDE 0.1 % EXTERNAL CREAM apply bid spari ngly to rash TRIAMCINOLONE ACETONIDE 0.1 % EXTERNAL CREAM 101 4314 TRIAMCINOLONE ACETONIDE Inactive ZITHROMAX Z-REYNA 250 MG ORAL TABLET 2 today, then 1 daily for 4 d ays ZITHROMAX Z-REYNA 250 MG ORAL TABLET 154380 AZITHROMYCIN Inactive CEFDINIR 300 MG ORAL CAPSULE by mouth twice a day 2010 CEFDINIR 300 MG ORAL CAPSULE 441205 CEFDINIR Inactive CEFDINIR 300 MG ORAL CAPSULE by mouth twice a day 2010 CEFDINIR 300 MG ORAL CAPSULE 038975 CEFDINIR Inactive CEFDINIR 300 MG ORAL CAPSULE by mouth twice a day 2010 CEFDINIR 300 MG ORAL CAPSULE 553144 CEFDINIR Inactive CEFDINIR 300 MG ORAL CAPSULE by mouth twice a day 2011 CEFDINIR 300 MG ORAL CAPSULE 704802 CEFDINIR Inactive ZITHROMAX 250 MG ORAL TABLET 2 po today, then 1 po q days 2-5 20 03/07/07 ZITHROMAX 250 MG ORAL TABLET 070433 AZITHROMYCIN [place] [facility] CEFDINIR 300 MG ORAL CAPSULE by mouth twice a day 2011 CEFDINIR 300 MG ORAL CAPSULE 188998 CEFDINIR Inactive PREDNISONE 20 MG ORAL TABLET 2 tabs daily for 3 days, 1 tab daily for 3 days, 1/2 tab daily for 2 days PREDNISONE 20 MG ORAL T ABLET 089511 PREDNISONE Inactive AVELOX 400 MG ORAL TABLET [...] days 11/07 PREDNISONE 20 MG ORAL TABLET 537445 PREDNISONE Inactive LEVAQUIN 500 MG ORAL TABLET take one po QD LEVAQUIN 500 MG ORAL TABLET 965165 LEVOFLOXACIN Inactive AZITHROMYCIN 250 MG ORAL TABLET 2 po qd x 1 day, then 1 po q d x 4 days AZITHROMYCIN 250 MG ORAL TABLET 386730 AZITHROMY GIOVANNI Inactive MEDROL 4 MG ORAL TABLET THERAPY PACK 6 tabs on day 1, 5 tabs on day 2, 4 tabs on day 3, 3 tabs on day 4, 2 tabs on day 5, 1 tab on day 6 2013 MEDROL 4 MG ORAL TABLET THERAPY PACK 837500 METHYLPREDNISOLONE [place] [facility] CHERATUSSIN AC 100-10 MG/5ML ORAL SYRUP 5ml po q6hr PRN Cough 20 13/04/14 CHERATUSSIN AC 100-10 MG/5ML ORAL SYRUP 030946 GUAIFENE SIN-CODEINE Inactive TRIAMCINOLONE ACETONIDE 0.1 % EXTERNAL CREAM apply three roger es daily prn rash TRIAMCINOLONE ACETONIDE 0.1 % EXTERNAL CREAM 101 4314 TRIAMCINOLONE ACETONIDE Inactive AZITHROMYCIN 250 MG ORAL TABLET 2 po qd x 1 day, then 1 po q d x 4 days AZITHROMYCIN 250 MG ORAL TABLET 527369 AZITHROMY GIOVANNI Inactive MEDROL 4 MG ORAL TABLET THERAPY PACK 6 pills x 1 day, then 5 pills x 1 day then 4 pills x 1 day, then 3 pills x 1 day, then 2 pills x 1 day, then 1 pill x 1 day, then stop MEDROL 4 MG ORAL TABLET THERAPY PACK 836013 METHYLPREDNISOLONE Inactive AMOXICILLIN 500 MG ORAL CAPSULE 1 tab by mouth 3 times daily x 10 days AMOXICILLIN 500 MG ORAL CAPSULE 985442 AMOXICILL IN Inactive AMOXICILLIN 500 MG ORAL CAPSULE 1 tab by mouth 3 times daily x 10 days AMOXICILLIN 500 MG ORAL CAPSULE 627144 AMOXICILL IN Inactive ZITHROMAX 250 MG ORAL TABLET 2 po today, then 1 po q days 2-5 20 12/08/14 ZITHROMAX 250 MG ORAL TABLET 623870 AZITHROMYCIN [place] [facility] AUGMENTIN 875-125 MG ORAL TABLET 1 po BID x 10 days 20 15/10/20 AUGMENTIN 875-125 MG ORAL TABLET AMOXICILLIN-POT CLAVULANATE Inactive ZITHROMAX Z-REYNA 250 MG ORAL TABLET 2 today, then 1 daily for 4 d ays ZITHROMAX Z-REYNA 250 MG ORAL TABLET 943488 AZITHROMYCIN Inactive ZITHROMAX 250 MG ORAL TABLET 2 po today, then 1 po q days 2-5 20 14/03/21 ZITHROMAX 250 MG ORAL TABLET 334260 AZITHROMYCIN [place] [facility] ZITHROMAX Z-REYNA 250 MG ORAL TABLET 2 today, then 1 daily for 4 d ays ZITHROMAX Z-REYNA 250 MG ORAL TABLET 853611 AZITHROMYCIN Inactive CEFDINIR 300 MG ORAL CAPSULE 1 po BID x 10 days 06/21 CEFDINIR 300 MG ORAL CAPSULE 186038 CEFDINIR Inactive ZITHROMAX 250 MG ORAL TABLET 2 po today, then 1 po q days 2-5 20 13/08/10 ZITHROMAX 250 MG ORAL TABLET 305887 AZITHROMYCIN [place] [facility] LEVAQUIN 500 MG ORAL TABLET 1 tablet by mouth daily 20 13/09/24 LEVAQUIN 500 MG ORAL TABLET 19971102 LEVOFLOXACIN Inactive SINGULAIR 10 MG ORAL TABLET 1 po qday for allergies 20 14/01/12 SINGULAIR 10 MG ORAL TABLET 20010504 MONTELUKAST SODIUM Inactive AMOXICILLIN 500 MG ORAL CAPSULE 2 po BID x 10 days 201 09/29/08 AMOXICILLIN 500 MG ORAL CAPSULE 088290 AMOXICILLIN Inactive PREDNISONE 20 MG ORAL TABLET 2 tabs daily for 3 days, 1 tab daily for 3 days, 1/2 tab daily for 2 days PREDNISONE 20 MG ORAL T ABLET 970876 PREDNISONE Inactive ZITHROMAX Z-REYNA 250 MG ORAL TABLET 2 today, then 1 daily for 4 d ays ZITHROMAX Z-REYNA 250 MG ORAL TABLET 233884 AZITHROMYCIN Inactive PREDNISONE 20 MG ORAL TABLET 2 tabs daily for 3 days, 1 tab daily for 3 days, 1/2 tab daily for 2 days PREDNISONE 20 MG ORAL T ABLET 061534 PREDNISONE Inactive ZITHROMAX 250 MG ORAL TABLET 2 po today, then 1 po q days 2-5 20 14/09/04 ZITHROMAX 250 MG ORAL TABLET 736312 AZITHROMYCIN [place] [facility] AMOXICILLIN 500 MG ORAL CAPSULE 1 cap by mouth three times a day AMOXICILLIN 500 MG ORAL CAPSULE 439043 AMOXICILLIN Inactive TERBINAFINE HCL 250 MG ORAL TABLET 1 qDay for nail fungus 7 TERBINAFINE HCL 250 MG ORAL TABLET 687720 TERBINAFINE HCL Inact nael AUGMENTIN 875-125 MG ORAL TABLET 1 po BID x 10 days 16/03/22 AUGMENTIN 875-125 MG ORAL TABLET AMOXICILLIN-POT CLAVULANATE Inactive PREDNISONE 20 MG ORAL TABLET 2 po qd x 5 days PREDNISONE 20 MG ORAL TABLET 578954 PREDNISONE Inactive AZITHROMYCIN 250 MG ORAL TABLET 2 po qd x 1 day, then 1 po q d x 4 days AZITHROMYCIN 250 MG ORAL TABLET 435787 AZITHROMY GIOVANNI Inactive PREDNISONE 50 MG ORAL TABLET Take 50 mg dialy for 6 day s 7 PREDNISONE 50 MG ORAL TABLET 653838 PREDNISONE Inactive AUGMENTIN 875-125 MG ORAL TABLET 1 po BID x 10 days 18/04/16 AUGMENTIN 875-125 MG ORAL TABLET AMOXICILLIN-POT CLAVULANATE Inactive DOXYCYCLINE HYCLATE 100 MG ORAL CAPSULE 1 cap by mouth twice latasha ly DOXYCYCLINE HYCLATE 100 MG ORAL CAPSULE 2920805 DOXYCYCL INE HYCLATE Inactive PREDNISONE 20 MG ORAL TABLET Take 2 tabs day 1 and 2 and 1 t ab days 3 and 4 PREDNISONE 20 MG ORAL TABLET 290273 PREDNISONE Inactive AMOXICILLIN 500 MG ORAL CAPSULE 1 cap by mouth twice daily 10/21 AMOXICILLIN 500 MG ORAL CAPSULE 057954 AMOXICILLIN Inactive TRIAMCINOLONE ACETONIDE 0.1 % EXTERNAL OINTMENT Apply to affected areas TID PRN Rash/Itching for up 2 weeks TRIAMCINOLON E ACETONIDE 0.1 % EXTERNAL OINTMENT 3330770 TRIAMCINOLONE ACETONIDE Inactive ACYCLOVIR 800 MG ORAL TABLET 1 po 5 times daily x 7 days ACYCLOVIR 800 MG ORAL TABLET 428961 ACYCLOVIR Inactive Vital Signs Date Name Value [...] Panel - Chemistry sodium, serum 137 mmol/L 778-505 7066/10/08 carbon dioxide, venous blood 29.9 mmol/L 21.0-32 [...] 0.50 mg/dL 0.00-1.00 cholesterol, serum 324 mg/dL 178-682 2003/10/08 triglyceride, serum, fasting 130 mg/dL 30-200 HDL [...] negative Encounters Code Encounter Date Provider Facility CPT-33717 [id number] Vst-Est Level IV 09:06:31 C ESAU Hu MD [facility] CPT-18258 Level 3 Est. Patient 14:16:41 CDT David Tin dle [facility] CPT-58696 Level 3 Est. Patient 13:57:55 CDT David Tin dle [facility] CPT-16955 Level 3 Est. Patient 16:08:07 CDT David Tin dle [facility] CPT-68936 Level 3 Est. Patient 16:53:54 CDT J Livan haas MD [facility]-78768 [id number] Vst-Est Level IV 08:41:[address] Carlton Hu MD [facility]-94945 Level 3 Est. Patient 09:46:49 STIPPLER David Tin dle [facility]-75130 [id number] Vst-Est Level III 11:12:16 CDT Yanet Bess DO [facility] CPT-37246 Level 3 Est. Patient 11:34:49 STIPPLER Perez Mora MD [facility] CPT-85773 Level 4 Est. Patient 09:51:32 STIPPLER Carlton rich MD [facility]-99969 Level 3 Est. Patient 10:26:00 STIPPLER Elise stephenson [facility] CPT-31303 Level 3 Est. Patient 13:35:41 STIPPLER Carlton rich MD [facility] CPT-22776 Level 3 Est. Patient 10:03:52 STIPPLER Carlton rich MD [facility] CPT-36176 Level 3 Est. Patient 12:17:50 CDT Hugo Restrepo MD [facility] CPT-24190 Level 3 Est. Patient 13:42:38 CDT Elise Are ll [facility] CPT-56005 Level 3 Est. Patient 13:23:51 CDT Diya cobian [facility] CPT-36829 Level 3 Est. Patient 14:22:19 STIPPLER Diya cobian [facility] CPT-55456 Level 3 Est. Patient 10:11:46 CDT Carlton rich MD [facility] CPT-11151 Level 3 Est. Patient 17:29:43 CDT Elise Are ll [facility] CPT-99576 Level 3 Est. Patient 11:58:06 CDT Elise Are [facility] CPT-41485 Level 4 Est. Patient 14:36:51 CDT Carlton rich MD [facility] CPT-86582 Level 3 Est. Patient 18:16:00 STIPPLER Blaine HERNANDEZ [facility] CPT-12642 Level 3 Est. Patient 09:45:49 STIPPLER Carlton rich MD [facility] CPT-28800 Level 3 Est. Patient 13:19:20 CDT Carlton rich MD [facility] CPT-12378 Level 3 Est. Patient 13:06:43 CDT Ridge tam DO [facility] CPT-22977 Level 3 Est. Patient 10:03:07 CDT Perez Mora MD [facility] CPT-52735 Level 3 Est. Patient 19:50:35 STIPPLER Carlton rich MD [facility] CPT-74709 Level 4 Est. Patient 18:05:01 STIPPLER Carlton rich MD [facility]-01161 Level 3 Est. Patient 10:45:55 STIPPLER Hguo Restrepo MD [facility]-48072 Level 3 Est. Patient 14:12:49 CDT Griffin HERNANDEZ [facility]-91463 Level 3 Est. Patient 17:37:24 CDT Carlton rich MD [facility]-70961 Level 3 Est. Patient 16:51:54 CDT Carlton rich MD [facility]-51728 Level 3 Est. Patient 12:18:11 CDT Hugo Restrepo MD [facility]-12707 Level 3 Est. Patient 11:30:25 CDT Marcy crisostomo MD, PhD [facility]-14272 Level 3 Est. Patient 12:00:47 STIPPLER Carlton rich MD [facility]-06696 Level 3 Est. Patient 16:31:06 STIPPLER Carlton rich MD [facility]-37385 Level 3 Est. Patient 16:23:24 STIPPLER Ridge atm DO [facility] CPT-98949 Level 3 Est. Patient 12:34:12 CDT Carlton rich MD [facility]-17397 Level 2 Est. Patient 15:43:33 CDT Robi armstrong MD [facility]-76578 Level 4 Est. Patient 14:04:44 CDT Carlton rich MD [facility]-00972 Level 3 Est. Patient 05:47:59 CDT Ridge tam [facility]-93861 Level 3 Est. Patient 13:12:53 STIPPLER Carlton rich MD [facility] CPT-21203 Level 3 Est. Patient 14:26:53 CDT Hugo Restrepo MD [facility] Procedures Code Procedure Name Date Entry Date Standard Desc ription CPT-86185 Venipuncture Draw Fee 15:53:34 CDT CPT-000 Give Appropriate Flu Vaccine 14:14:31 CDT 2 CPT-J1040 Depo Medrol 80 mg (Methyl Prednisolone A cetate) 10:42:44 CDT CPT-J1100 Decadron 8mg (Dexamethasone) 10:42:44 CDT 2 CPT-J0696 Rocephin 1gm Inj Solr 14:32:13 CDT CPT-J1020 Depo Medrol 60 mg (Methyl Prednisolone A cetate) 14:32:13 CDT CPT-J1100 Decadron 6mg (Dexamethasone) 14:32:13 CDT 2 CPT-31082 Hip bilat min 2V w AP pelvis 13:16:20 CDT 2 CPT-45809 Pelvis only 13:07:33 CDT CPT-89203 Spec Collection and Handling Fee 11:25:12 C DT CPT-29767 Fluzone Quadrivalent Intramuscular Suspe nsion 0.5 ML 14:31:55 CDT CPT-42581 Abx/Therapy Injection 13:28:47 STIPPLER CPT-J2930 Solu Medrol 125 mg (Methyl Prednisolone Sodium Succinate) 12:00:47 STIPPLER CPT-05869 Venipuncture Draw Fee 11:33:31 CDT CPT-78518 EKG Trac and Interp 11:21:09 CDT CPT-73543 Chest 2V Frontal and Lat 11:21:09 CDT 12/15 CPT-65611 Venipuncture Draw Fee 08:02:34 CDT CPT-36148 Chest 2V Frontal and Lat 05:47:59 CDT 06/05
--- OUTSIDE RECORDS SUMMARY | 2019-10-08 09:52 | XMS REPORT | Clinical Summary ---
Author Author Caitlin, Juliana Martinez Organization [facility] Address Unknown Phone Unavailable Allergies, [...] URI 465.9 Inactive Ridge Bess DO [place] upper respiratory infections of unspecified site Body Mass Index 35.0-35.9 Adult Refinement 2017 Ridge Bess DO Body Mass Index 35.0-35.9, adult BMI 34-34.9 Refinement Cherelle Torres RN Body Mass Index 35.0-35.9, adult BMI 35-35.9 Refinement David Marianneamisha RICEN Body Mass Index 35.0-35.9, adult BMI 34-34.9 Refinement May Vivar MD Body Mass Index 35.0-35.9, adult BMI 35-35.9 Refinement David Marianne GEAR CODING MACHINE OPERATOR Body Mass Index 35.0-35.9, adult BMI 33-33.9 Active David Marianne GEAR CODING MACHINE OPERATOR Body Mass Index 35.0-35.9, adult Upper [...] nonspecific skin eruption 782.1 Active David Marianne GEAR CODING MACHINE OPERATOR Rash and other nonspecific skin eruption Pharyngitis, acute / sore throat 462 Active 201 12/06/23 David Marianne GEAR CODING MACHINE OPERATOR Acute pharyngitis Shingles 053.9 Active David Marianne GEAR CODING MACHINE OPERATOR Herpes zoster without mention of complication [...] Status Provider Patient Instruction GABAPENTIN 100 MG ORAL CAPSULE TAKE 1 CAPSULE BY MOUTH TWICE DAILY FOR FIBROMYALGIA GABAPENTIN 11316502037 Active Carlton Hu MD Active ELMIRON 100MG CAP TAKE 2 CAPSULES BY MOUTH IN THE MORNING AND 1 CAPSULE AT BEDTIME PENTOSAN POLYSULFATE SODIUM 30586004214 Active May Vivar MD Active TRAMADOL HCL 50 MG TABS TAKE 1 TABLET BY MOUTH THREE TIMES DAILY WITH EXTRA STRENGTH TYLENOL TRAMADOL HCL 30033035839 Active Carlton Hu MD Active ALPRAZOLAM 0.5 MG TABS TAKE 1 TABLET BY MOUTH ONCE DAILY NEEDED ALPRAZOLAM 49071069979 Active Carlton Hu MD Active TOPIRAMATE 100 MG TABS TAKE 1 TABLET BY MOUTH TWICE DAILY 1 TOPIRAMATE 35397644962 Active Carlton Hu MD Active ATORVASTATIN CALCIUM 10 MG ORAL TABLET 1 pill by mouth night ly, for cholesterol ATORVASTATIN CALCIUM 84670641578 Active Columba Parrish Active TRIAMCINOLONE ACETONIDE 0.1 % EXTERNAL CREAM apply bid spari ngly to rash TRIAMCINOLONE ACETONIDE 23642696086 No Longer Active Carlton Hu MD Active TYLENOL WITH CODEINE #3 300-30 MG ORAL TABLET ACETAMINOPHEN-CODEINE 83135403909 No Longer Active Carlton Hu MD Active TYLENOL WITH CODEINE #3 300-30 MG ORAL TABLET 1-2 po q6hr PRN Pa in ACETAMINOPHEN-CODEINE 07549662109 No Longer Active David Lopes AP RN Active ACYCLOVIR 800 MG ORAL TABLET 1 po 5 times daily x 7 days ACYCLOVIR 29041189900 No Longer Active David Marianne GEAR CODING MACHINE 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 TOPAMAX 100 MG ORAL TABLET 1 by mouth twice daily TOPIRAMATE 40848075875 Active Carlton Hu MD Active TRIAMCINOLONE ACETONIDE 0.1 % EXTERNAL OINTMENT Apply to affected areas TID PRN Rash/Itching for up 2 weeks TRIAMCINOLONE ACETON KAYLA 41935126389 No Longer Active David Lopes APRN Active AMOXICILLIN 500 MG ORAL CAPSULE 1 cap by mouth twice daily 10/21 AMOXICILLIN 97238907331 No Longer Active David Lopes APRN Active CYMBALTA 30 MG ORAL CAPSULE DELAYED RELEASE PARTICLES 1 cap by mouth daily for depression DULOXETINE HCL 54230627951 No Longer Active Carlton Hu MD Active CYMBALTA 60 MG ORAL CAPSULE DELAYED RELEASE PARTICLES 1 cap by mouth daily for mood and pain DULOXETINE HCL 18745496079 Active Carlton Hu MD Active TUSSIONEX PENNKINETIC ER 10-8 MG/5ML ORAL SUSPENSION E XTENDED RELEASE 5ml po q12hr PRN Cough HYDROCOD POLST-CHLORPHEN POLST 00718217766 Active Carlton Hu MD Active PREDNISONE 20 MG ORAL TABLET Take 2 tabs day 1 and 2 and 1 t ab days 3 and 4 PREDNISONE 48806557001 No Longer Active David Lopes APRN Active DOXYCYCLINE HYCLATE 100 MG ORAL CAPSULE 1 cap by mouth twice latasha ly DOXYCYCLINE HYCLATE 49710332229 No Longer Active David Marianne GEAR CODING MACHINE 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 TOPAMAX 100 MG ORAL TABLET Take 1 tablet po bid TOPIRAMATE 32546349324 No Longer Active David Marianne GEAR CODING MACHINE 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 TUSSIONEX PENNKINETIC ER 10-8 MG/5ML ORAL SUSPENSION E XTENDED RELEASE 5ml po q12hr PRN Cough HYDROCOD POLST-CHLORPHEN POLST 5 2050769257 No Longer Active David Marianne GEAR CODING MACHINE 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 AUGMENTIN 875-125 MG ORAL TABLET 1 po BID x 10 days 20 18/04/16 AMOXICILLIN-POT CLAVULANATE 47407105145 No Longer Active David Marianne GEAR CODING MACHINE 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 PREDNISONE 50 MG ORAL TABLET Take 50 mg dialy for 6 day s 7 PREDNISONE 13829084423 No Longer Active David Marianne GEAR CODING MACHINE 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 TUSSIONEX PENNKINETIC ER 10-8 MG/5ML ORAL SUSPENSION E XTENDED RELEASE 5ml po q12hr PRN Cough HYDROCOD POLST-CHLORPHEN POLST 5 4365135108 No Longer Active Cherelle Torres RN Active PREDNISONE 20 MG ORAL TABLET two tabs by mouth today, then one tab by mouth days two and three and four PREDNISONE 79319142243 No Lo nger Active Cherelle Torres RN Active AZITHROMYCIN 250 MG ORAL TABLET 2 po qd x 1 day, then 1 po q d x 4 days AZITHROMYCIN 65121923248 No Longer Active Ridge Bess DO Active PREDNISONE 20 MG ORAL TABLET 2 po qd x 5 days P REDNISONE 33341432308 No Longer Active Perez Mora MD Active PROAIR HFA 108 (90 BASE) MCG/ACT INHALATION AEROSOL SO LUTION 2 puffs four times a day as needed ALBUTEROL SULFATE 45245756047 No Long er Active Becky FUENTES Active ASPIRIN 81 MG ORAL TABLET 1 po qd ASPIRIN 01105985931 Active Carlton Hu MD Active PREDNISONE 20 MG ORAL TABLET 1 tab twice daily for 3 d ay, then one daily for three days PREDNISONE 17081654224 No Longer Active Carlton Hu MD Active AUGMENTIN 875-125 MG ORAL TABLET 1 po BID x 10 days 16/03/22 AMOXICILLIN-POT CLAVULANATE 52527183181 No Longer Active Elise Garcia APRN Active TERBINAFINE HCL 250 MG ORAL TABLET 1 qDay for nail fungus 7 TERBINAFINE HCL 61821714359 No Longer Active Carlton Hu MD A ctive AMOXICILLIN 500 MG ORAL CAPSULE 1 cap by mouth three times a day AMOXICILLIN 42738604684 No Longer Active Carlton Hu MD Active ELMIRON 100 MG ORAL CAPSULE 2 tablets in the am and 1 tablet at hs PENTOSAN POLYSULFATE SODIUM 02725453050 No Longer Active Robert jade Hu MD Active MUCINEX D 60-600 MG ORAL TABLET EXTENDED RELEASE 12 HOUR 1 t ab po q am PSEUDOEPHEDRINE-GUAIFENESIN 04429086816 No Longer Act nael Carlton Hu MD Active MUCINEX DM MAXIMUM STRENGTH 60-1200 MG ORAL TABLET EXT ENDED RELEASE 12 HOUR 1 tab po q am DEXTROMETHORPHAN-GUAIFENESIN 13233814331 No Longer Active Carlton Hu MD Active TUSSIONEX PENNKINETIC ER 10-8 MG/5ML ORAL SUSPENSION E XTENDED RELEASE 5ml po q12hr PRN Cough HYDROCOD POLST-CHLORPHEN POLST 5 0084273495 No Longer Active Carlton Hu MD Active POTASSIUM CHLORIDE ER 20 MEQ ORAL TABLET EXTENDED RELE ASE Take 1 by mouth 4 times daily for 7 days POTASSIUM CHLORIDE 29906493156 No Longer Active Carlton Hu MD Active ZITHROMAX 250 MG ORAL TABLET 2 po today, then 1 po q days 2-5 20 14/09/04 AZITHROMYCIN 53802906960 No Longer Active Elise Garcia APRN Active TUSSIONEX PENNKINETIC ER 10-8 MG/5ML ORAL SUSPENSION E XTENDED RELEASE 5 ml twice a day as needed for cough HYDROCOD POLST-CHLORPH EN POLST 55036858268 No Longer Active Elise Garcia APRN Active MONTELUKAST SODIUM 10 MG ORAL TABLET 1 po daily for Allergy MONTELUKAST SODIUM 46597225030 Active Carlton Hu MD Ac tive TUSSIONEX PENNKINETIC ER 10-8 MG/5ML ORAL SUSPENSION E XTENDED RELEASE 5ml po q12hr PRN Cough HYDROCOD POLST-CHLORPHEN POLST 5 9340425135 No Longer Active Hugo Restrepo MD Active LYRICA 100 MG ORAL CAPSULE Take 1 tab po BID for fibromyalgia 20 11/08/21 PREGABALIN 12329681212 No Longer Active Elise Garcia APRN A ctive PREDNISONE 20 MG ORAL TABLET 2 tabs daily for 3 days, 1 tab daily for 3 days, 1/2 tab daily for 2 days PREDNISONE 17464959369 No Longer Active Venullina Cesarl GEAR CODING MACHINE 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 TUSSIONEX PENNKINETIC ER 10-8 MG/5ML ORAL SUSPENSION E XTENDED RELEASE 5 mL PO q 12 hrs PRN cough HYDROCOD POLST-CHLORPHEN POLST 106960 12124 No Longer Active Jillina Frazell GEAR CODING MACHINE 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 FLUTICASONE PROPIONATE 50 MCG/ACT NASAL SUSPENSION 2 s prays each nostril daily until bottle is empty FLUTICASONE PROPIONATE 310416209 99 No Longer Active Jillina Frazell GEAR CODING MACHINE 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 ASMANEX 60 METERED DOSES 220 MCG/INH INHALATION AEROSO L POWDER BREATH ACTIVATED 1 puff bid with rinse after MOMETASONE FUROATE 5112521 4102 No Longer Active Jillina Frazell GEAR CODING MACHINE 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 ZITHROMAX Z-REYNA 250 MG ORAL TABLET 2 today, then 1 daily for 4 d ays AZITHROMYCIN 64053438344 No Longer Active Elise Garcia APRN Active TUSSIONEX PENNKINETIC ER 10-8 MG/5ML ORAL SUSPENSION E XTENDED RELEASE 5ml po q12hr PRN Cough HYDROCOD POLST-CHLORPHEN POLST 5 3660316765 No Longer Active Elise Garcia GEAR CODING MACHINE 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 PREDNISONE 20 MG ORAL TABLET 2 tabs daily for 3 days, 1 tab daily for 3 days, 1/2 tab daily for 2 days PREDNISONE 81116603266 No Longer Active Diya De Guzman GEAR CODING MACHINE 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 AMOXICILLIN 500 MG ORAL CAPSULE 2 po BID x 10 days 201 09/29/08 AMOXICILLIN 28368512408 No Longer Active Diya De Guzman GEAR CODING MACHINE OPERATOR Act nael SINGULAIR 10 MG ORAL TABLET 1 po qday for allergies 20 14/01/12 MONTELUKAST SODIUM 19968174919 No Longer Active Carlton Hu MD Active LEVAQUIN 500 MG ORAL TABLET 1 tablet by mouth daily 13/09/24 LEVOFLOXACIN 75150458980 No Longer Active Carlton Hu MD Acti ve FLUTICASONE PROPIONATE 50 MCG/ACT NASAL SUSPENSION 2 s prays each nostril daily for 2 weeks, then 1 spray each nostril daily. FLUTICASONE PROPIONATE 75360647395 Active Carlton Hu MD Active ZITHROMAX 250 MG ORAL TABLET 2 po today, then 1 po q days 2-5 13/08/10 AZITHROMYCIN 68011003456 No Longer Active Elise Garcia APRN Active CEFDINIR 300 MG ORAL CAPSULE 1 po BID x 10 days CEFDINIR 15081670225 No Longer Active Carlton Hu MD Active ZOCOR 40 MG ORAL TABLET 1 tab by mouth daily SI MVASTATIN 42073549081 No Longer Active Carlton Hu MD Active CYCLOBENZAPRINE HCL 10 MG ORAL TABLET 1 tablet by mouth BID prn had pain CYCLOBENZAPRINE HCL 66743324245 No Longer Active Jayden Hu MD Active LEVOFLOXACIN 500 MG ORAL TABLET 1 tab PO daily x 10 days LEVOFLOXACIN 87623343989 No Longer Active Carlton Hu MD Acti ve PREDNISONE 20 MG ORAL TABLET 3 tab PO qd x 2d, 2 tab P O qd x 2d, 1 tab PO qd x 2d, 1/2 tab PO qd x 2d PREDNISONE 93110454596 No Lo nger Active Carlton Hu MD Active FLUTICASONE PROPIONATE 50 MCG/ACT NASAL SUSPENSION 1 t o 2 sprays each nostril daily FLUTICASONE PROPIONATE 99393353656 No Longer Ac tive Blaine HERNANDEZ Active CHERATUSSIN AC 100-10 MG/5ML ORAL SYRUP 1 tsp by mouth every 4 hours as needed for cough GUAIFENESIN-CODEINE 33222826946 No Longe r Active Blaine HERNANDEZ Active PROMETHAZINE-CODEINE 6.25-10 MG/5ML ORAL SYRUP 1 tsp b y mouth every 6 hours if needed for cough PROMETHAZINE-CODEINE 02729237355 No Longer Active Blaine HERNANDEZ Active CHERATUSSIN AC 100-10 MG/5ML ORAL SYRUP 1 tsp by mouth every 4 hours as needed for cough GUAIFENESIN-CODEINE 86882031991 No Longe r Active Blaine HERNANDEZ Active ZITHROMAX Z-REYNA 250 MG ORAL TABLET 2 today, then 1 daily for 4 d ays AZITHROMYCIN 90196180001 No Longer Active Columba Raida Act nael ZITHROMAX 250 MG ORAL TABLET 2 po today, then 1 po q days 2-5 20 14/03/21 AZITHROMYCIN 56503096012 No Longer Active Carlton Hu MD Active ZITHROMAX Z-REYNA 250 MG ORAL TABLET 2 today, then 1 daily for 4 d ays AZITHROMYCIN 94317542879 No Longer Active Columba Raida Act nael AUGMENTIN 875-125 MG ORAL TABLET 1 po BID x 10 days 13/01/20 AMOXICILLIN-POT CLAVULANATE 78472921579 No Longer Active Diya De Guzman APRN Active ZITHROMAX 250 MG ORAL TABLET 2 po today, then 1 po q days 2-5 20 12/08/14 AZITHROMYCIN 02567306147 No Longer Active Carlton Hu MD Active PREMARIN 0.625 MG ORAL TABLET TAKE 1 TAB BY MOUTH DAILY ESTROGENS CONJUGATED 54865886239 No Longer Active Ridge Bess DO A ctive CYMBALTA 30 MG ORAL CAPSULE DELAYED RELEASE PARTICLES 1 cap by mouth daily DULOXETINE HCL 20793804210 No Longer Active Ridge tam DO Active AMOXICILLIN 500 MG ORAL CAPSULE 1 tab by mouth 3 times daily x 10 days AMOXICILLIN 92359600252 No Longer Active Carlton bustamante MD Active AMOXICILLIN 500 MG ORAL CAPSULE 1 tab by mouth 3 times daily x 10 days AMOXICILLIN 07113603454 No Longer Active Carlton bustamante MD Active PROMETHAZINE-CODEINE 6.25-10 MG/5ML ORAL SYRUP 1 tsp b y mouth every 8 hours prn cough PROMETHAZINE-CODEINE 54423461573 No Longer Acti ve Carlton Hu MD Active MEDROL 4 MG ORAL TABLET THERAPY PACK 6 pills x 1 day, then 5 pills x 1 day then 4 pills x 1 day, then 3 pills x 1 day, then 2 pills x 1 day, then 1 pill x 1 day, then stop METHYLPREDNISOLONE 91877194100 No Long er Active Perez Mora MD Active AZITHROMYCIN 250 MG ORAL TABLET 2 po qd x 1 day, then 1 po q d x 4 days AZITHROMYCIN 36151742912 No Longer Active Perez Ambriz MD Active SYMBICORT 160-4.5 MCG/ACT INHALATION AEROSOL 2 puffs bid wit h rinse after BUDESONIDE-FORMOTEROL FUMARATE 25670159523 N o Longer Active Perez Mora MD Active LYRICA 75 MG ORAL CAPSULE TAKE 1 CAPSULE BY MOUTH TWICE DAILY PREGABALIN 85768517120 No Longer Active Carlton Hu MD Acti ve TOPAMAX 25 MG ORAL TABLET 1 qHS x 1 week, then 1 BID x 1 week, then 1 qAM and 2 qHS x 1 week, then 2 BID (migraine prevention) T OPIRAMATE 85967132784 No Longer Active Jerica FUENTES Active TOPAMAX 50 MG ORAL TABLET take 1 tab po BID for migraines. 07/02 TOPIRAMATE 37201313186 No Longer Active Jerica Jonesema FUENTES Active TRIAMCINOLONE ACETONIDE 0.1 % EXTERNAL CREAM apply three roger es daily prn rash TRIAMCINOLONE ACETONIDE 02023655812 No Longer Active Carlton Hu MD Active PAXIL 40 MG ORAL TABLET take 1 tab po qday for depression 0 PAROXETINE HCL 08188858865 Active Carlton Hu MD Active CHERATUSSIN AC 100-10 MG/5ML ORAL SYRUP 5ml po q6hr PRN Cough 20 13/04/14 GUAIFENESIN-CODEINE 55857122361 No Longer Active Carlton Hu MD Active MEDROL 4 MG ORAL TABLET THERAPY PACK 6 tabs on day 1, 5 tabs on day 2, 4 tabs on day 3, 3 tabs on day 4, 2 tabs on day 5, 1 tab on day 6 2013 METHYLPREDNISOLONE 07369944568 No Longer Active Perez Mora MD Active AZITHROMYCIN 250 MG ORAL TABLET 2 po qd x 1 day, then 1 po q d x 4 days AZITHROMYCIN 21622169069 No Longer Active Perez Ambriz MD Active PROPRANOLOL HCL 60 MG ORAL TABLET 1 PO Q D PROPRANOLOL HCL 97468523615 No Longer Active Perez Mora MD Activ e CHERATUSSIN AC 100-10 MG/5ML ORAL SYRUP take one tsp po Q 6h ours prn cough GUAIFENESIN-CODEINE 60453722143 No Longer Active Zia Mora MD Active AUGMENTIN 875-125 MG ORAL TABLET 1 tab by mouth twice daily with food AMOXICILLIN-POT CLAVULANATE 54739695086 No Longer Act nael Perez Mora MD Active CHERATUSSIN AC 100-10 MG/5ML ORAL SYRUP 1 tsp by mouth every 4 hours as needed for cough GUAIFENESIN-CODEINE 95842927700 No Longe r Active Hugo Restrepo MD Active ACETAMINOPHEN-CODEINE #3 300-30 MG ORAL TABLET 1 PO Q 4-6 HRS [place] N PAIN ACETAMINOPHEN-CODEINE 85699711856 No Longer Active Hugo Restrepo MD Active LEVAQUIN 500 MG ORAL TABLET take one po QD LEVO FLOXACIN 71412049754 No Longer Active Griffin HERNANDEZ Active PREDNISONE 20 MG ORAL TABLET Take 3 tabs daily for 3 d ays, 2 tabs daily for 3 days, 1 tab daily for 3 days, 1/2 tab daily for 3 days 11/07 PREDNISONE 57879977215 No Longer Active Carlton Hu MD Acti ve AVELOX 400 MG ORAL TABLET 1 tab by mouth daily MOXIFLOXACIN HCL 95541083405 No Longer Active Carlton Hu MD Active CHERATUSSIN AC 100-10 MG/5ML ORAL SYRUP 1 tsp by mouth every 4 hours as needed for cough GUAIFENESIN-CODEINE 49655020587 No Longe r Active Hugo Restrepo MD Active AVELOX 400 MG ORAL TABLET 1 tab by mouth daily MOXIFLOXACIN HCL 55215656148 No Longer Active Marcy De La Rosa MD PhD Active TERBINAFINE HCL 250 MG ORAL TABLET 1 qDay T ERBINAFINE HCL 67250543328 No Longer Active Marcy De La Rosa MD PhD Active CHERATUSSIN AC 100-10 MG/5ML ORAL SYRUP 1 tsp by mouth every 4 hours as needed for cough GUAIFENESIN-CODEINE 84619751676 No Longe r Active Marcy De La Rosa MD PhD Active AVELOX 400 MG ORAL TABLET 1 tab by mouth daily MOXIFLOXACIN HCL 09690929659 No Longer Active Marcy De La Rosa MD PhD Active HYDROCODONE-ACETAMINOPHEN 5-325 MG ORAL TABLET 1 po q 6hr PRN co ugh HYDROCODONE-ACETAMINOPHEN 20136424670 No Longer Active Marcy De La Rosa MD PhD Active PREDNISONE 20 MG ORAL TABLET 2 tabs daily for 3 days, 1 tab daily for 3 days, 1/2 tab daily for 2 days PREDNISONE 12797913603 No Longer Active Carlton Hu MD Active CEFDINIR 300 MG ORAL CAPSULE by mouth twice a day 2011 CEFDINIR 44580276976 No Longer Active Carlton Hu MD Acti ve HYDROCHLOROTHIAZIDE 25 MG ORAL TABLET 1 TAB PO DAILY HYDROCHLOROTHIAZIDE 60100104632 Active Carlton Hu MD A ctive ACETAMINOPHEN-CODEINE #3 300-30 MG ORAL TABLET 1 tablet po q 4-6 hrs prn pain ACETAMINOPHEN-CODEINE 99969639149 No Longer Active Ridge Bess DO Active ZITHROMAX 250 MG ORAL TABLET 2 po today, then 1 po q days 2-5 20 03/07/07 AZITHROMYCIN 32453647132 No Longer Active Carlton Hu MD Active CHERATUSSIN AC 100-10 MG/5ML ORAL SYRUP take 1 tsp po q4-6 h ours prn cough GUAIFENESIN-CODEINE 44396776811 No Longer Active Jayden Hu MD Active ACETAMINOPHEN-CODEINE #3 300-30 MG ORAL TABLET 1 PO Q 4-6 HR PRN PAIN ACETAMINOPHEN-CODEINE 78011323356 No Longer Active Da raimundo Hu MD Active LORTAB 7.5-500 MG/15ML ORAL ELIXIR 7.5 ml po q 4 hour prn cough HYDROCODONE-ACETAMINOPHEN 43801286883 No Longer Active Carlton Hu MD Active PREDNISONE 20 MG ORAL TABLET 1 po bid 3 days, then 1 po q day 3 days PREDNISONE 58284420665 No Longer Active Carlton Hu MD Active CEFDINIR 300 MG ORAL CAPSULE by mouth twice a day 2011 CEFDINIR 71428497227 No Longer Active Carlton Hu MD Acti ve CEFDINIR 300 MG ORAL CAPSULE by mouth twice a day 2010 CEFDINIR 07965932374 No Longer Active Carlton Hu MD Acti ve CEFDINIR 300 MG ORAL CAPSULE by mouth twice a day 2010 CEFDINIR 63278817877 No Longer Active Carlton Hu MD Acti ve TESSALON PERLES 100 MG ORAL CAPSULE 1 tablet by mouth 3 times daily as needed for cough BENZONATATE 51882675274 No Longer Active Carlton Hu MD Active CEFDINIR 300 MG ORAL CAPSULE by mouth twice a day 2010 CEFDINIR 47871942828 No Longer Active Carlton Hu MD Acti ve ZITHROMAX Z-REYNA 250 MG ORAL TABLET 2 today, then 1 daily for 4 d ays AZITHROMYCIN 78939300571 No Longer Active Hugo Restrepo MD Active TESSALON PERLES 100 MG ORAL CAPSULE 1 tablet by mouth 3 times daily as needed for cough TESSALON PERLES 100 MG ORAL CAPSULE 59323 7 BENZONATATE Inactive PREDNISONE 20 MG ORAL TABLET 1 po bid 3 days, then 1 po q day 3 days PREDNISONE 20 MG ORAL TABLET 550930 PREDNISONE Greer ctive LORTAB 7.5-500 MG/15ML ORAL ELIXIR 7.5 ml po q 4 hour prn cough LORTAB 7.5-500 MG/15ML ORAL ELIXIR HYDROCODONE-A CETAMINOPHEN Inactive ACETAMINOPHEN-CODEINE #3 300-30 MG ORAL TABLET 1 PO Q 4-6 HR PRN PAIN ACETAMINOPHEN-CODEINE #3 300-30 MG ORAL TABLET 9 10104 ACETAMINOPHEN-CODEINE Inactive CHERATUSSIN AC 100-10 MG/5ML ORAL SYRUP take 1 tsp po q4-6 h ours prn cough CHERATUSSIN AC 100-10 MG/5ML ORAL SYRUP 609341 GUAIFENESIN-CODEINE Inactive ACETAMINOPHEN-CODEINE #3 300-30 MG ORAL TABLET 1 tablet po q 4-6 hrs prn pain ACETAMINOPHEN-CODEINE #3 300-30 MG ORAL TABLET 331986 ACETAMINOPHEN-CODEINE Inactive HYDROCODONE-ACETAMINOPHEN 5-325 MG ORAL TABLET 1 po q 6hr PRN co ugh HYDROCODONE-ACETAMINOPHEN 5-325 MG ORAL TABLET 093310 HYDROCODONE-ACETAMINOPHEN Inactive AVELOX 400 MG ORAL TABLET 1 tab by mouth daily AVELOX 400 MG ORAL TABLET MOXIFLOXACIN HCL Inactive CHERATUSSIN AC 100-10 MG/5ML ORAL SYRUP 1 tsp by mouth every 4 hours as needed for cough CHERATUSSIN AC 100-10 MG/5ML ORAL SYRUP 9 79657 GUAIFENESIN-CODEINE Inactive TERBINAFINE HCL 250 MG ORAL TABLET 1 qDay 07/08 TERBINAFINE HCL 250 MG ORAL TABLET 399887 TERBINAFINE HCL Inactive CHERATUSSIN AC 100-10 MG/5ML ORAL SYRUP 1 tsp by mouth every 4 hours as needed for cough CHERATUSSIN AC 100-10 MG/5ML ORAL SYRUP 9 24015 GUAIFENESIN-CODEINE Inactive ACETAMINOPHEN-CODEINE #3 300-30 MG ORAL TABLET 1 PO Q 4-6 HRS [place] N PAIN ACETAMINOPHEN-CODEINE #3 300-30 MG ORAL TABLET 867714 ACETAMINOPHEN-CODEINE Inactive CHERATUSSIN AC 100-10 MG/5ML ORAL SYRUP 1 tsp by mouth every 4 hours as needed for cough CHERATUSSIN AC 100-10 MG/5ML ORAL SYRUP 9 52993 GUAIFENESIN-CODEINE Inactive AUGMENTIN 875-125 MG ORAL TABLET 1 tab by mouth twice daily with food AUGMENTIN 875-125 MG ORAL TABLET AMOXICIL MADELINE-POT CLAVULANATE Inactive CHERATUSSIN AC 100-10 MG/5ML ORAL SYRUP take one tsp po Q 6h ours prn cough CHERATUSSIN AC 100-10 MG/5ML ORAL SYRUP 284311 GUAIFENESIN-CODEINE Inactive PROPRANOLOL HCL 60 MG ORAL TABLET 1 PO Q D PROPRANOLOL HCL 60 MG ORAL TABLET 553690 PROPRANOLOL HCL Inactive TOPAMAX 50 MG ORAL TABLET take 1 tab po BID for migraines. 07/02 TOPAMAX 50 MG ORAL TABLET 716125 TOPIRAMATE Inacti ve TOPAMAX 25 MG ORAL TABLET 1 qHS x 1 week, then 1 BID x 1 week, then 1 qAM and 2 qHS x 1 week, then 2 BID (migraine prevention) TOPAMAX 25 MG ORAL TABLET 636886 TOPIRAMATE Inactive LYRICA 75 MG ORAL CAPSULE TAKE 1 CAPSULE BY MOUTH TWICE DAILY LYRICA 75 MG ORAL CAPSULE 571624 PREGABALIN Inactive SYMBICORT 160-4.5 MCG/ACT INHALATION AEROSOL 2 puffs bid wit h rinse after SYMBICORT 160-4.5 MCG/ACT INHALATION AEROSOL BUDESONIDE- FORMOTEROL FUMARATE Inactive PROMETHAZINE-CODEINE 6.25-10 MG/5ML ORAL SYRUP 1 tsp b y mouth every 8 hours prn cough PROMETHAZINE-CODEINE 6.25-10 MG/ 5ML ORAL SYRUP 196041 PROMETHAZINE-CODEINE Inactive CYMBALTA 30 MG ORAL CAPSULE DELAYED RELEASE PARTICLES 1 cap by mouth daily CYMBALTA 30 MG ORAL CAPSULE DELAYED RELE ASE PARTICLES 050459 DULOXETINE HCL Inactive PREMARIN 0.625 MG ORAL TABLET TAKE 1 TAB BY MOUTH DAILY PREMARIN 0.625 MG ORAL TABLET ESTROGENS CONJUGATED Inactive CHERATUSSIN AC 100-10 MG/5ML ORAL SYRUP 1 tsp by mouth every 4 hours as needed for cough CHERATUSSIN AC 100-10 MG/5ML ORAL SYRUP 9 70002 GUAIFENESIN-CODEINE Inactive PROMETHAZINE-CODEINE 6.25-10 MG/5ML ORAL SYRUP 1 tsp b y mouth every 6 hours if needed for cough PROMETHAZINE-CODEINE 6.25-10 MG/5ML ORAL SYRUP 755078 PROMETHAZINE-CODEINE Inactive CHERATUSSIN AC 100-10 MG/5ML ORAL SYRUP 1 tsp by mouth every 4 hours as needed for cough CHERATUSSIN AC 100-10 MG/5ML ORAL SYRUP 9 65672 GUAIFENESIN-CODEINE Inactive FLUTICASONE PROPIONATE 50 MCG/ACT NASAL SUSPENSION 1 t o 2 sprays each nostril daily FLUTICASONE PROPIONATE 50 MCG/AC T NASAL SUSPENSION 0498895 FLUTICASONE PROPIONATE Inactive PREDNISONE 20 MG ORAL TABLET 3 tab PO qd x 2d, 2 tab P O qd x 2d, 1 tab PO qd x 2d, 1/2 tab PO qd x 2d PREDNISONE 20 MG ORAL TAB LET 921820 PREDNISONE Inactive LEVOFLOXACIN 500 MG ORAL TABLET 1 tab PO daily x 10 days LEVOFLOXACIN 500 MG ORAL TABLET 672924 LEVOFLOXACIN Inactive CYCLOBENZAPRINE HCL 10 MG ORAL TABLET 1 tablet by mouth BID prn had pain CYCLOBENZAPRINE HCL 10 MG ORAL TABLET 967612 CYCLOBENZAPRINE HCL Inactive ZOCOR 40 MG ORAL TABLET 1 tab by mouth daily 4 ZOCOR 40 MG ORAL TABLET 242514 SIMVASTATIN Inactive TUSSIONEX PENNKINETIC ER 10-8 MG/5ML [...] FLUTICASONE PROPIO EFE 50 MCG/ACT NASAL SUSPENSION 3081183 FLUTICASONE PROPIONATE Inactive TUSSIONEX PENNKINETIC ER 10-8 MG/5ML ORAL SUSPENSION E XTENDED RELEASE 5 mL PO q 12 hrs PRN cough TUSSIONEX PENNKINETI C ER 10-8 MG/5ML ORAL SUSPENSION EXTENDED RELEASE HYDROCOD POLST-CHLORPHEN POLST I nactive LYRICA 100 MG ORAL CAPSULE Take 1 tab po BID for fibromyalgia 20 11/08/21 LYRICA 100 MG ORAL CAPSULE 746173 PREGABALIN Inact nael TUSSIONEX PENNKINETIC ER 10-8 [...] three days PREDNISONE 20 MG ORAL TABLET 146571 PREDNIS ONE Inactive PROAIR HFA 108 (90 BASE) MCG/ACT INHALATION AEROSOL SO LUTION 2 puffs four times a day as needed PROAIR HFA 108 (90 B ASE) MCG/ACT INHALATION AEROSOL SOLUTION ALBUTEROL SULFATE Inactive PREDNISONE 20 MG ORAL TABLET two tabs by mouth today, then one tab by mouth days two and three and four PREDNISONE 20 MG ORAL TAB LET [id number] PREDNISONE Inactive TUSSIONEX PENNKINETIC ER 10-8 MG/5ML [...] bid 04/20 TOPAMAX 100 MG ORAL TABLET 064620 TOPIRAMATE Inactive CYMBALTA 30 MG ORAL CAPSULE DELAYED RELEASE PARTICLES 1 cap by mouth daily for depression CYMBALTA 30 MG ORAL CAPSULE DELAYED RELEASE PARTICLES [id number] DULOXETINE HCL Inactive TYLENOL WITH CODEINE #3 300-30 MG ORAL TABLET 1-2 po q6hr PRN Pa in TYLENOL WITH CODEINE #3 300-30 MG ORAL TABLET [id number] ACETAMINOPHEN-CODEINE Inactive TYLENOL WITH CODEINE #3 300-30 MG ORAL TABLET TYLENOL WITH CODEINE #3 300-30 MG ORAL TABLET 576286 ACETAMINOPHEN-CODEINE Inactive TRIAMCINOLONE ACETONIDE 0.1 % EXTERNAL CREAM apply bid spari ngly to rash TRIAMCINOLONE ACETONIDE 0.1 % EXTERNAL CREAM 101 4314 TRIAMCINOLONE ACETONIDE Inactive ZITHROMAX Z-REYNA 250 MG ORAL TABLET 2 today, then 1 daily for 4 d ays ZITHROMAX Z-REYNA 250 MG ORAL TABLET 903179 AZITHROMYCIN Inactive CEFDINIR 300 MG ORAL CAPSULE by mouth twice a day 2010 CEFDINIR 300 MG ORAL CAPSULE 000842 CEFDINIR Inactive CEFDINIR 300 MG ORAL CAPSULE by mouth twice a day 2010 CEFDINIR 300 MG ORAL CAPSULE 882223 CEFDINIR Inactive CEFDINIR 300 MG ORAL CAPSULE by mouth twice a day 2010 CEFDINIR 300 MG ORAL CAPSULE 998724 CEFDINIR Inactive CEFDINIR 300 MG ORAL CAPSULE by mouth twice a day 2011 CEFDINIR 300 MG ORAL CAPSULE 596378 CEFDINIR Inactive ZITHROMAX 250 MG ORAL TABLET 2 po today, then 1 po q days 2-5 20 03/07/07 ZITHROMAX 250 MG ORAL TABLET 546568 AZITHROMYCIN Greer ctive CEFDINIR 300 MG ORAL CAPSULE by mouth twice a day 2011 CEFDINIR 300 MG ORAL CAPSULE 126836 CEFDINIR Inactive PREDNISONE 20 MG ORAL TABLET 2 tabs daily for 3 days, 1 tab daily for 3 days, 1/2 tab daily for 2 days PREDNISONE 20 MG ORAL T ABLET 497595 PREDNISONE Inactive AVELOX 400 MG ORAL TABLET [...] days 11/07 PREDNISONE 20 MG ORAL TABLET 325210 PREDNISONE Inactive LEVAQUIN 500 MG ORAL TABLET take one po QD LEVAQUIN 500 MG ORAL TABLET 940952 LEVOFLOXACIN Inactive AZITHROMYCIN 250 MG ORAL TABLET 2 po qd x 1 day, then 1 po q d x 4 days AZITHROMYCIN 250 MG ORAL TABLET 154533 AZITHROMY GIOVANNI Inactive MEDROL 4 MG ORAL TABLET THERAPY PACK 6 tabs on day 1, 5 tabs on day 2, 4 tabs on day 3, 3 tabs on day 4, 2 tabs on day 5, 1 tab on day 6 2013 MEDROL 4 MG ORAL TABLET THERAPY PACK 051944 METHYLPREDNISOLONE Elliott ctive CHERATUSSIN AC 100-10 MG/5ML ORAL SYRUP 5ml po q6hr PRN Cough 20 13/04/14 CHERATUSSIN AC 100-10 MG/5ML ORAL SYRUP 880211 GUAIFENE SIN-CODEINE Inactive TRIAMCINOLONE ACETONIDE 0.1 % EXTERNAL CREAM apply three roger es daily prn rash TRIAMCINOLONE ACETONIDE 0.1 % EXTERNAL CREAM 101 4314 TRIAMCINOLONE ACETONIDE Inactive AZITHROMYCIN 250 MG ORAL TABLET 2 po qd x 1 day, then 1 po q d x 4 days AZITHROMYCIN 250 MG ORAL TABLET 402685 AZITHROMY GIOVANNI Inactive MEDROL 4 MG ORAL TABLET THERAPY PACK 6 pills x 1 day, then 5 pills x 1 day then 4 pills x 1 day, then 3 pills x 1 day, then 2 pills x 1 day, then 1 pill x 1 day, then stop MEDROL 4 MG ORAL TABLET THERAPY PACK 477705 METHYLPREDNISOLONE Inactive AMOXICILLIN 500 MG ORAL CAPSULE 1 tab by mouth 3 times daily x 10 days AMOXICILLIN 500 MG ORAL CAPSULE 734546 AMOXICILL IN Inactive AMOXICILLIN 500 MG ORAL CAPSULE 1 tab by mouth 3 times daily x 10 days AMOXICILLIN 500 MG ORAL CAPSULE 450483 AMOXICILL IN Inactive ZITHROMAX 250 MG ORAL TABLET 2 po today, then 1 po q days 2-5 20 12/08/14 ZITHROMAX 250 MG ORAL TABLET 145460 AZITHROMYCIN Greer ctive AUGMENTIN 875-125 MG ORAL TABLET 1 po BID x 10 days 20 15/10/20 AUGMENTIN 875-125 MG ORAL TABLET AMOXICILLIN-POT CLAVULANATE Inactive ZITHROMAX Z-REYNA 250 MG ORAL TABLET 2 today, then 1 daily for 4 d ays ZITHROMAX Z-REYNA 250 MG ORAL TABLET 057805 AZITHROMYCIN Inactive ZITHROMAX 250 MG ORAL TABLET 2 po today, then 1 po q days 2-5 20 14/03/21 ZITHROMAX 250 MG ORAL TABLET 683599 AZITHROMYCIN Greer ctive ZITHROMAX Z-REYNA 250 MG ORAL TABLET 2 today, then 1 daily for 4 d ays ZITHROMAX Z-REYNA 250 MG ORAL TABLET 557800 AZITHROMYCIN Inactive CEFDINIR 300 MG ORAL CAPSULE 1 po BID x 10 days 06/21 CEFDINIR 300 MG ORAL CAPSULE 355821 CEFDINIR Inactive ZITHROMAX 250 MG ORAL TABLET 2 po today, then 1 po q days 2-5 20 13/08/10 ZITHROMAX 250 MG ORAL TABLET 012374 AZITHROMYCIN Elliott ctive LEVAQUIN 500 MG ORAL TABLET 1 tablet by mouth daily 20 13/09/24 LEVAQUIN 500 MG ORAL TABLET 19971102 LEVOFLOXACIN Inactive SINGULAIR 10 MG ORAL TABLET 1 po qday for allergies 20 14/01/12 SINGULAIR 10 MG ORAL TABLET 20010504 MONTELUKAST SODIUM Inactive AMOXICILLIN 500 MG ORAL CAPSULE 2 po BID x 10 days 201 09/29/08 AMOXICILLIN 500 MG ORAL CAPSULE 487348 AMOXICILLIN Inactive PREDNISONE 20 MG ORAL TABLET 2 tabs daily for 3 days, 1 tab daily for 3 days, 1/2 tab daily for 2 days PREDNISONE 20 MG ORAL T ABLET 490184 PREDNISONE Inactive ZITHROMAX Z-REYNA 250 MG ORAL TABLET 2 today, then 1 daily for 4 d ays ZITHROMAX Z-REYNA 250 MG ORAL TABLET 769155 AZITHROMYCIN Inactive PREDNISONE 20 MG ORAL TABLET 2 tabs daily for 3 days, 1 tab daily for 3 days, 1/2 tab daily for 2 days PREDNISONE 20 MG ORAL T ABLET 632424 PREDNISONE Inactive ZITHROMAX 250 MG ORAL TABLET 2 po today, then 1 po q days 2-5 20 14/09/04 ZITHROMAX 250 MG ORAL TABLET 400935 AZITHROMYCIN Elliott ctive AMOXICILLIN 500 MG ORAL CAPSULE 1 cap by mouth three times a day AMOXICILLIN 500 MG ORAL CAPSULE 236752 AMOXICILLIN Inactive TERBINAFINE HCL 250 MG ORAL TABLET 1 qDay for nail fungus 7 TERBINAFINE HCL 250 MG ORAL TABLET 836418 TERBINAFINE HCL Inact nael AUGMENTIN 875-125 MG ORAL TABLET 1 po BID x 10 days 16/03/22 AUGMENTIN 875-125 MG ORAL TABLET AMOXICILLIN-POT CLAVULANATE Inactive PREDNISONE 20 MG ORAL TABLET 2 po qd x 5 days PREDNISONE 20 MG ORAL TABLET 670459 PREDNISONE Inactive AZITHROMYCIN 250 MG ORAL TABLET 2 po qd x 1 day, then 1 po q d x 4 days AZITHROMYCIN 250 MG ORAL TABLET 549550 AZITHROMY GIOVANNI Inactive PREDNISONE 50 MG ORAL TABLET Take 50 mg dialy for 6 day s 7 PREDNISONE 50 MG ORAL TABLET 678225 PREDNISONE Inactive AUGMENTIN 875-125 MG ORAL TABLET 1 po BID x 10 days 18/04/16 AUGMENTIN 875-125 MG ORAL TABLET AMOXICILLIN-POT CLAVULANATE Inactive DOXYCYCLINE HYCLATE 100 MG ORAL CAPSULE 1 cap by mouth twice latasha ly DOXYCYCLINE HYCLATE 100 MG ORAL CAPSULE 7758519 DOXYCYCL INE HYCLATE Inactive PREDNISONE 20 MG ORAL TABLET Take 2 tabs day 1 and 2 and 1 t ab days 3 and 4 PREDNISONE 20 MG ORAL TABLET 012699 PREDNISONE Inactive AMOXICILLIN 500 MG ORAL CAPSULE 1 cap by mouth twice daily 10/21 AMOXICILLIN 500 MG ORAL CAPSULE 836810 AMOXICILLIN Inactive TRIAMCINOLONE ACETONIDE 0.1 % EXTERNAL OINTMENT Apply to affected areas TID PRN Rash/Itching for up 2 weeks TRIAMCINOLON E ACETONIDE 0.1 % EXTERNAL OINTMENT 0570767 TRIAMCINOLONE ACETONIDE Inactive ACYCLOVIR 800 MG ORAL TABLET 1 po 5 times daily x 7 days ACYCLOVIR 800 MG ORAL TABLET 237964 ACYCLOVIR Inactive Vital Signs Date Name Value [...] weight E&M 142 [lb_av] Weight Measure d Diagnostic Results Date Name Value Unit Range Description Lab Report: Comp. Metabolic Panel, CBC, Lipid Panel - Chemistry sodium, serum 137 mmol/L 932-550 3846/10/08 carbon dioxide, venous blood 29.9 mmol/L 21.0-32 [...] 0.50 mg/dL 0.00-1.00 cholesterol, serum 324 mg/dL 009-217 0995/10/08 triglyceride, serum, fasting 130 mg/dL 30-200 HDL [...] negative Encounters Code Encounter Date Provider Facility CPT-16506 [id number] Vst-Est Level IV 09:06:31 C ESAU Hu MD [facility] CPT-08023 Level 3 Est. Patient 14:16:41 CDT David lion [facility]-61900 Level 3 Est. Patient 13:57:55 CDT David lion [facility]-52402 Level 3 Est. Patient 16:08:07 CDT David lion [facility] CPT-16024 Level 3 Est. Patient 16:53:54 CDT May haas MD [facility]-54068 [id number] Vst-Est Level IV 08:41:[address] Carlton Hu MD [facility]-82420 Level 3 Est. Patient 09:46:49 LICENSE AND PERMIT SPECIALIST David lion [facility]-11953 [id number] Vst-Est Level III 11:12:16 CDT Yanet Bess DO [facility] CPT-03940 Level 3 Est. Patient 11:34:49 LICENSE AND PERMIT SPECIALIST Perez Mora MD [facility] CPT-02063 Level 4 Est. Patient 09:51:32 LICENSE AND PERMIT SPECIALIST Carlton rich MD [facility] CPT-77473 Level 3 Est. Patient 10:26:00 LICENSE AND PERMIT SPECIALIST Elise Are ll [facility] CPT-90977 Level 3 Est. Patient 13:35:41 LICENSE AND PERMIT SPECIALIST Carlton rich MD [facility] CPT-71644 Level 3 Est. Patient 10:03:52 LICENSE AND PERMIT SPECIALIST Carlton rich MD [facility] CPT-81603 Level 3 Est. Patient 12:17:50 CDT Hugo Restrepo MD [facility] CPT-18886 Level 3 Est. Patient 13:42:38 CDT Elise Are [facility] [place] CPT-82417 Level 3 Est. Patient 13:23:51 CDT Diya cobian [facility] CPT-80156 Level 3 Est. Patient 14:22:19 LICENSE AND PERMIT SPECIALIST Diya cobian [facility] CPT-58680 Level 3 Est. Patient 10:11:46 CDT Carlton rich MD [facility] CPT-39190 Level 3 Est. 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 CPT-59116 Level 3 Est. Patient 11:58:06 CDT Elise Are [facility] [place] [facility] [place] CPT-88148 Level 4 Est. Patient 14:36:51 CDT Carlton rich MD [facility] CPT-86245 Level 3 Est. Patient 18:16:00 LICENSE AND PERMIT SPECIALIST Blaine HERNANDEZ [facility] CPT-68720 Level 3 Est. Patient 09:45:49 LICENSE AND PERMIT SPECIALIST Carlton rich MD [facility] CPT-20751 Level 3 Est. Patient 13:19:20 CDT Carlton rich MD [facility] CPT-00746 Level 3 Est. Patient 13:06:43 CDT Ridge tam DO [facility] CPT-89404 Level 3 Est. Patient 10:03:07 CDT Perez Mora MD [facility]-69988 Level 3 Est. Patient 19:50:35 LICENSE AND PERMIT SPECIALIST Carlton rich MD [facility] CPT-23565 Level 4 Est. Patient 18:05:01 LICENSE AND PERMIT SPECIALIST Carlton rich MD [facility]-22481 Level 3 Est. Patient 10:45:55 LICENSE AND PERMIT SPECIALIST Hugo Restrepo MD [facility] CPT-87623 Level 3 Est. Patient 14:12:49 CDT Griffin HERNANDEZ [facility] CPT-74776 Level 3 Est. Patient 17:37:24 CDT Carlton rich MD [facility] CPT-58319 Level 3 Est. Patient 16:51:54 CDT Carlton rich MD [facility]-28619 Level 3 Est. Patient 12:18:11 CDT Hugo Restrepo MD [facility]-84633 Level 3 Est. Patient 11:30:25 CDT Marcy crisostomo MD PhD [facility]-51745 Level 3 Est. Patient 12:00:47 LICENSE AND PERMIT SPECIALIST Carlton rich MD [facility]-72532 Level 3 Est. Patient 16:31:06 LICENSE AND PERMIT SPECIALIST Carlton rich MD [facility] CPT-70071 Level 3 Est. Patient 16:23:24 LICENSE AND PERMIT SPECIALIST Ridge tam DO [facility] CPT-38827 Level 3 Est. Patient 12:34:12 CDT Carlton rich MD [facility] CPT-83495 Level 2 Est. Patient 15:43:33 CDT Robi armstrong MD [facility] CPT-45885 Level 4 Est. Patient 14:04:44 CDT Carlton rich MD [facility] CPT-89630 Level 3 Est. Patient 05:47:59 CDT Ridge tam DO [facility] CPT-82364 Level 3 Est. Patient 13:12:53 LICENSE AND PERMIT SPECIALIST Carlton rich MD [facility] CPT-07280 Level 3 Est. Patient 14:26:53 CDT Hugo Restrepo MD [facility] Procedures Code Procedure Name Date Entry Date Standard Desc ription CPT-06275 Venipuncture Draw Fee 15:53:34 CDT CPT-000 Give Appropriate Flu Vaccine 14:14:31 CDT CPT-J1040 Depo Medrol 80 mg (Methyl Prednisolone A cetate) 10:42:44 CDT CPT-J1100 Decadron 8mg (Dexamethasone) 10:42:44 CDT 2 CPT-J0696 Rocephin 1gm Inj Solr 14:32:13 CDT CPT-J1020 Depo Medrol 60 mg (Methyl Prednisolone A cetate) 14:32:13 CDT CPT-J1100 Decadron 6mg (Dexamethasone) 14:32:13 CDT 2 CPT-29033 Hip bilat min 2V w AP pelvis 13:16:20 CDT 2 CPT-10566 Pelvis only 13:07:33 CDT CPT-07097 Spec Collection and Handling Fee 11:25:12 C DT CPT-20883 Fluzone Quadrivalent Intramuscular Suspe nsion 0.5 ML 14:31:55 CDT CPT-98379 Abx/Therapy Injection 13:28:47 LICENSE AND PERMIT SPECIALIST CPT-J2930 Solu Medrol 125 mg (Methyl Prednisolone Sodium Succinate) 12:00:47 LICENSE AND PERMIT SPECIALIST CPT-85194 Venipuncture Draw Fee 11:33:31 CDT CPT-13993 EKG Trac and Interp 11:21:09 CDT CPT-97885 Chest 2V Frontal and Lat 11:21:09 CDT 12/15 CPT-47944 Venipuncture Draw Fee 08:02:34 CDT CPT-57010 Chest 2V Frontal and Lat 05:47:59 CDT 06/05
--- OUTSIDE RECORDS SUMMARY | 2019-10-08 09:52 | XMS REPORT | Clinical Summary ---
[...] Restrepo MD Acute pharyngitis Onychomycosis 112.3 Active Carlotn Hu MD Candidiasis of skin and nails Sinusitis - acute 461.9 Active Elise Garcia APRN Acute sinusitis, unspecified Angina pectoris 413.9 Active Carlton Means Other and unspecified angina pectoris URI 465.9 Inactive Ridge Bess DO Ac yurok upper respiratory infections of unspecified site Body Mass Index 35.0-35.9 Adult Refinement 2017 Ridge Bess DO Body Mass Index 35.0-35.9, adult BMI 34-34.9 Refinement Cherelle Torres RN Body Mass Index 35.0-35.9, adult BMI 35-35.9 Refinement Advid Marianneamisha RICEN Body Mass Index 35.0-35.9, adult BMI 34-34.9 Refinement May Vivar MD Body Mass Index 35.0-35.9, adult BMI 35-35.9 Refinement David Marianne ENVIRONMENTAL PROTECTION ECONOMIST Body Mass Index 35.0-35.9, adult BMI 33-33.9 Active David Marianne ENVIRONMENTAL PROTECTION ECONOMIST Body Mass Index 35.0-35.9, adult Upper respiratory [...] Acute pharyngitis Shingles 053.9 Active David Marianne ENVIRONMENTAL PROTECTION ECONOMIST Herpes zoster without mention of complication Allergic [...] Generic Name NDC Status Provider Patient Instruction ALPRAZOLAM 0.5 MG TABS TAKE 1 TABLET BY MOUTH ONCE DAILY NEEDED ALPRAZOLAM 05589677142 Active Carlton Hu MD Active GABAPENTIN 100 MG ORAL CAPSULE TAKE 1 CAPSULE BY MOUTH TWICE DAILY FOR FIBROMYALGIA GABAPENTIN 63481596644 Active Carlton Hu MD Active ELMIRON 100MG CAP TAKE 2 CAPSULES BY MOUTH IN THE MORNING AND 1 CAPSULE AT BEDTIME PENTOSAN POLYSULFATE SODIUM 56410340705 Active May Vivar MD Active TRAMADOL HCL 50 MG TABS TAKE 1 TABLET BY MOUTH THREE TIMES DAILY WITH EXTRA STRENGTH TYLENOL TRAMADOL HCL 03911585820 Active Carlton Hu MD Active TOPIRAMATE 100 MG TABS TAKE 1 TABLET BY MOUTH TWICE DAILY 1 TOPIRAMATE 23048221569 Active Carlton Hu MD Active ATORVASTATIN CALCIUM 10 MG ORAL TABLET 1 pill by mouth night ly, for cholesterol ATORVASTATIN CALCIUM 95426446088 Active Columba Parrish Active TRIAMCINOLONE ACETONIDE 0.1 % EXTERNAL CREAM apply bid spari ngly to rash TRIAMCINOLONE ACETONIDE 72951608223 No Longer Active Carlton Hu MD Active TYLENOL WITH CODEINE #3 300-30 MG ORAL TABLET ACETAMINOPHEN-CODEINE 02441073218 No Longer Active Carlton Hu MD Active TYLENOL WITH CODEINE #3 300-30 MG ORAL TABLET 1-2 po q6hr PRN Pa in ACETAMINOPHEN-CODEINE 04594813497 No Longer Active David Lopes AP RN Active ACYCLOVIR 800 MG ORAL TABLET 1 po 5 times daily x 7 days ACYCLOVIR 98624525379 No Longer Active David Marianne ENVIRONMENTAL PROTECTION ECONOMIST Active TOPAMAX 100 MG ORAL TABLET 1 by mouth twice daily TOPIRAMATE 75100803914 Active Carlton Hu MD Active TRIAMCINOLONE ACETONIDE 0.1 % EXTERNAL OINTMENT Apply to affected areas TID PRN Rash/Itching for up 2 weeks TRIAMCINOLONE ACETON KAYLA 41364968802 No Longer Active David Lopes APRN Active AMOXICILLIN 500 MG ORAL CAPSULE 1 cap by mouth twice daily 10/21 AMOXICILLIN 76216304730 No Longer Active David Lopes APRN Active CYMBALTA 30 MG ORAL CAPSULE DELAYED RELEASE PARTICLES 1 cap by mouth daily for depression DULOXETINE HCL 04425120730 No Longer Active Carlton Hu MD Active CYMBALTA 60 MG ORAL CAPSULE DELAYED RELEASE PARTICLES 1 cap by mouth daily for mood and pain DULOXETINE HCL 75285846504 Active Carlton Hu MD Active TUSSIONEX PENNKINETIC ER 10-8 MG/5ML ORAL SUSPENSION E XTENDED RELEASE 5ml po q12hr PRN Cough HYDROCOD POLST-CHLORPHEN POLST 65446188690 Active Carlton Hu MD Active PREDNISONE 20 MG ORAL TABLET Take 2 tabs day 1 and 2 and 1 t ab days 3 and 4 PREDNISONE 53494696564 No Longer Active David Lopes APRN Active DOXYCYCLINE HYCLATE 100 MG ORAL CAPSULE 1 cap by mouth twice latasha ly DOXYCYCLINE HYCLATE 82411829879 No Longer Active David Marianne ENVIRONMENTAL PROTECTION ECONOMIST Active TOPAMAX 100 MG ORAL TABLET Take 1 tablet po bid TOPIRAMATE 00477155109 No Longer Active David Marianne ENVIRONMENTAL PROTECTION ECONOMIST Active TUSSIONEX PENNKINETIC ER 10-8 MG/5ML ORAL SUSPENSION E XTENDED RELEASE 5ml po q12hr PRN Cough HYDROCOD POLST-CHLORPHEN POLST 5 3099069751 No Longer Active David Marianne ENVIRONMENTAL PROTECTION ECONOMIST Active AUGMENTIN 875-125 MG ORAL TABLET 1 po BID x 10 days 20 18/04/16 AMOXICILLIN-POT CLAVULANATE 94839944754 No Longer Active David Marianne ENVIRONMENTAL PROTECTION ECONOMIST Active PREDNISONE 50 MG ORAL TABLET Take 50 mg dialy for 6 day s 7 PREDNISONE 11221148890 No Longer Active David Marianne ENVIRONMENTAL PROTECTION ECONOMIST Active TUSSIONEX PENNKINETIC ER 10-8 MG/5ML ORAL SUSPENSION E XTENDED RELEASE 5ml po q12hr PRN Cough HYDROCOD POLST-CHLORPHEN POLST 5 0932710654 No Longer Active Cherelle Torres RN Active PREDNISONE 20 MG ORAL TABLET two tabs by mouth today, then one tab by mouth days two and three and four PREDNISONE 91350674825 No Lo nger Active Cherelle Torres RN Active AZITHROMYCIN 250 MG ORAL TABLET 2 po qd x 1 day, then 1 po q d x 4 days AZITHROMYCIN 02285322054 No Longer Active Ridge Bess DO Active PREDNISONE 20 MG ORAL TABLET 2 po qd x 5 days P REDNISONE 45193868353 No Longer Active Perez Mora MD Active PROAIR HFA 108 (90 BASE) MCG/ACT INHALATION AEROSOL SO LUTION 2 puffs four times a day as needed ALBUTEROL SULFATE 55971564639 No Long er Active Becky FUENTES Active ASPIRIN 81 MG ORAL TABLET 1 po qd ASPIRIN 09354460515 Active Carlton Hu MD Active PREDNISONE 20 MG ORAL TABLET 1 tab twice daily for 3 d ay, then one daily for three days PREDNISONE 61570229062 No Longer Active Carlton Hu MD Active AUGMENTIN 875-125 MG ORAL TABLET 1 po BID x 10 days 16/03/22 AMOXICILLIN-POT CLAVULANATE 96763822265 No Longer Active Elise Garcia APRN Active TERBINAFINE HCL 250 MG ORAL TABLET 1 qDay for nail fungus 7 TERBINAFINE HCL 22428004552 No Longer Active Carlton Hu MD A ctive AMOXICILLIN 500 MG ORAL CAPSULE 1 cap by mouth three times a day AMOXICILLIN 44867119834 No Longer Active Carlton Hu MD Active ELMIRON 100 MG ORAL CAPSULE 2 tablets in the am and 1 tablet at hs PENTOSAN POLYSULFATE SODIUM 99876546840 No Longer Active Robert Hu MD Active MUCINEX D 60-600 MG ORAL TABLET EXTENDED RELEASE 12 HOUR 1 t ab po q am PSEUDOEPHEDRINE-GUAIFENESIN 31201246103 No Longer Act nael Carlton Hu MD Active MUCINEX DM MAXIMUM STRENGTH 60-1200 MG ORAL TABLET EXT ENDED RELEASE 12 HOUR 1 tab po q am DEXTROMETHORPHAN-GUAIFENESIN 61792734331 No Longer Active Carlton Hu MD Active TUSSIONEX PENNKINETIC ER 10-8 MG/5ML ORAL SUSPENSION E XTENDED RELEASE 5ml po q12hr PRN Cough HYDROCOD POLST-CHLORPHEN POLST 5 1080266025 No Longer Active Carlton Hu MD Active POTASSIUM CHLORIDE ER 20 MEQ ORAL TABLET EXTENDED RELE ASE Take 1 by mouth 4 times daily for 7 days POTASSIUM CHLORIDE 10776627428 No Longer Active Carlton Hu MD Active ZITHROMAX 250 MG ORAL TABLET 2 po today, then 1 po q days 2-5 20 14/09/04 AZITHROMYCIN 58157064422 No Longer Active Elise Areseema ENVIRONMENTAL PROTECTION ECONOMIST Active TUSSIONEX PENNKINETIC ER 10-8 MG/5ML ORAL SUSPENSION E XTENDED RELEASE 5 ml twice a day as needed for cough HYDROCOD POLST-CHLORPH EN POLST 98610107259 No Longer Active Elise Garcia APRN Active MONTELUKAST SODIUM 10 MG ORAL TABLET 1 po daily for Allergy MONTELUKAST SODIUM 44382672382 Active Carlton Hu MD Ac tive TUSSIONEX PENNKINETIC ER 10-8 MG/5ML ORAL SUSPENSION E XTENDED RELEASE 5ml po q12hr PRN Cough HYDROCOD POLST-CHLORPHEN POLST 5 3441484021 No Longer Active Hugo Restrepo MD Active LYRICA 100 MG ORAL CAPSULE Take 1 tab po BID for fibromyalgia 20 11/08/21 PREGABALIN 56878903926 No Longer Active Elise Garcia APRN A ctive PREDNISONE 20 MG ORAL TABLET 2 tabs daily for 3 days, 1 tab daily for 3 days, 1/2 tab daily for 2 days PREDNISONE 06770810748 No Longer Active Venullina Cesarl ENVIRONMENTAL PROTECTION ECONOMIST Active TUSSIONEX PENNKINETIC ER 10-8 MG/5ML ORAL SUSPENSION E XTENDED RELEASE 5 mL PO q 12 hrs PRN cough HYDROCOD POLST-CHLORPHEN POLST 105698 76144 No Longer Active Jillina Daphnezell ENVIRONMENTAL PROTECTION ECONOMIST Active FLUTICASONE PROPIONATE 50 MCG/ACT NASAL SUSPENSION 2 s prays each nostril daily until bottle is empty FLUTICASONE PROPIONATE 030372865 99 No Longer Active Jillina Frazell ENVIRONMENTAL PROTECTION ECONOMIST Active ASMANEX 60 METERED DOSES 220 MCG/INH INHALATION AEROSO L POWDER BREATH ACTIVATED 1 puff bid with rinse after MOMETASONE FUROATE 0607648 4102 No Longer Active Jillina Frazell ENVIRONMENTAL PROTECTION ECONOMIST Active ZITHROMAX Z-REYNA 250 MG ORAL TABLET 2 today, then 1 daily for 4 d ays AZITHROMYCIN 40203199205 No Longer Active Elise Garcia APRN Active TUSSIONEX PENNKINETIC ER 10-8 MG/5ML ORAL SUSPENSION E XTENDED RELEASE 5ml po q12hr PRN Cough HYDROCOD POLST-CHLORPHEN POLST 5 9072727071 No Longer Active Elise Garcia ENVIRONMENTAL PROTECTION ECONOMIST Active PREDNISONE 20 MG ORAL TABLET 2 tabs daily for 3 days, 1 tab daily for 3 days, 1/2 tab daily for 2 days PREDNISONE 44410436879 No Longer Active Diya De Guzman ENVIRONMENTAL PROTECTION ECONOMIST Active AMOXICILLIN 500 MG ORAL CAPSULE 2 po BID x 10 days 201 09/29/08 AMOXICILLIN 14008505045 No Longer Active Diya De Guzman ENVIRONMENTAL PROTECTION ECONOMIST Act nael SINGULAIR 10 MG ORAL TABLET 1 po qday for allergies 20 14/01/12 MONTELUKAST SODIUM 32573561378 No Longer Active Carlton Hu MD Active LEVAQUIN 500 MG ORAL TABLET 1 tablet by mouth daily 13/09/24 LEVOFLOXACIN 52799568785 No Longer Active Carlton Hu MD Acti ve FLUTICASONE PROPIONATE 50 MCG/ACT NASAL SUSPENSION 2 s prays each nostril daily for 2 weeks, then 1 spray each nostril daily. FLUTICASONE PROPIONATE 27139682766 Active Carlton Hu MD Active ZITHROMAX 250 MG ORAL TABLET 2 po today, then 1 po q days 2-5 20 13/08/10 AZITHROMYCIN 49528785728 No Longer Active Elise Garcia APRN Active CEFDINIR 300 MG ORAL CAPSULE 1 po BID x 10 days CEFDINIR 11199698421 No Longer Active Carlton Hu MD Active ZOCOR 40 MG ORAL TABLET 1 tab by mouth daily SI MVASTATIN 79597830445 No Longer Active Carlton Hu MD Active CYCLOBENZAPRINE HCL 10 MG ORAL TABLET 1 tablet by mouth BID prn had pain CYCLOBENZAPRINE HCL 32944569735 No Longer Active Jayden Hu MD Active LEVOFLOXACIN 500 MG ORAL TABLET 1 tab PO daily x 10 days LEVOFLOXACIN 15341765139 No Longer Active Carlton Hu MD Acti ve PREDNISONE 20 MG ORAL TABLET 3 tab PO qd x 2d, 2 tab P O qd x 2d, 1 tab PO qd x 2d, 1/2 tab PO qd x 2d PREDNISONE 57710659176 No Lo nger Active Carlton Hu MD Active FLUTICASONE PROPIONATE 50 MCG/ACT NASAL SUSPENSION 1 t o 2 sprays each nostril daily FLUTICASONE PROPIONATE 86827887502 No Longer Ac tive Blaine HERNANDEZ Active CHERATUSSIN AC 100-10 MG/5ML ORAL SYRUP 1 tsp by mouth every 4 hours as needed for cough GUAIFENESIN-CODEINE 71029281275 No Longe r Active Blaine HERNANDEZ Active PROMETHAZINE-CODEINE 6.25-10 MG/5ML ORAL SYRUP 1 tsp b y mouth every 6 hours if needed for cough PROMETHAZINE-CODEINE 31465129024 No Longer Active Blaine HERNANDEZ Active CHERATUSSIN AC 100-10 MG/5ML ORAL SYRUP 1 tsp by mouth every 4 hours as needed for cough GUAIFENESIN-CODEINE 06269341026 No Longe r Active Blaine HERNANDEZ Active ZITHROMAX Z-REYNA 250 MG ORAL TABLET 2 today, then 1 daily for 4 d ays AZITHROMYCIN 65424770794 No Longer Active Columba Raida Act nael ZITHROMAX 250 MG ORAL TABLET 2 po today, then 1 po q days 2-5 20 14/03/21 AZITHROMYCIN 77680840509 No Longer Active Carlton Hu MD Active ZITHROMAX Z-REYNA 250 MG ORAL TABLET 2 today, then 1 daily for 4 d ays AZITHROMYCIN 15790013703 No Longer Active Columba Raida Act nael AUGMENTIN 875-125 MG ORAL TABLET 1 po BID x 10 days 13/01/20 AMOXICILLIN-POT CLAVULANATE 26270780279 No Longer Active Diya De Guzman APRN Active ZITHROMAX 250 MG ORAL TABLET 2 po today, then 1 po q days 2-5 20 12/08/14 AZITHROMYCIN 69404543885 No Longer Active Carlton Hu MD Active PREMARIN 0.625 MG ORAL TABLET TAKE 1 TAB BY MOUTH DAILY ESTROGENS CONJUGATED 22039195924 No Longer Active Ridge Bess DO A ctive CYMBALTA 30 MG ORAL CAPSULE DELAYED RELEASE PARTICLES 1 cap by mouth daily DULOXETINE HCL 72074411163 No Longer Active Rdige tam DO Active AMOXICILLIN 500 MG ORAL CAPSULE 1 tab by mouth 3 times daily x 10 days AMOXICILLIN 05862991731 No Longer Active Carlton bustamante MD Active AMOXICILLIN 500 MG ORAL CAPSULE 1 tab by mouth 3 times daily x 10 days AMOXICILLIN 81304853521 No Longer Active Carlton bustamante MD Active PROMETHAZINE-CODEINE 6.25-10 MG/5ML ORAL SYRUP 1 tsp b y mouth every 8 hours prn cough PROMETHAZINE-CODEINE 45035863743 No Longer Acti ve Carlton Hu MD Active MEDROL 4 MG ORAL TABLET THERAPY PACK 6 pills x 1 day, then 5 pills x 1 day then 4 pills x 1 day, then 3 pills x 1 day, then 2 pills x 1 day, then 1 pill x 1 day, then stop METHYLPREDNISOLONE 02473875060 No Long er Active Perez Mora MD Active AZITHROMYCIN 250 MG ORAL TABLET 2 po qd x 1 day, then 1 po q d x 4 days AZITHROMYCIN 16912902395 No Longer Active Perez Ambriz MD Active SYMBICORT 160-4.5 MCG/ACT INHALATION AEROSOL 2 puffs bid wit h rinse after BUDESONIDE-FORMOTEROL FUMARATE 11077759155 N o Longer Active Perez Mora MD Active LYRICA 75 MG ORAL CAPSULE TAKE 1 CAPSULE BY MOUTH TWICE DAILY PREGABALIN 25630934477 No Longer Active Carlton Hu MD Acti ve TOPAMAX 25 MG ORAL TABLET 1 qHS x 1 week, then 1 BID x 1 week, then 1 qAM and 2 qHS x 1 week, then 2 BID (migraine prevention) T OPIRAMATE 74187473511 No Longer Active Jerica FUENTES Active TOPAMAX 50 MG ORAL TABLET take 1 tab po BID for migraines. 07/02 TOPIRAMATE 85955044825 No Longer Active Jerica Farnaz FUENTES Active TRIAMCINOLONE ACETONIDE 0.1 % EXTERNAL CREAM apply three roger es daily prn rash TRIAMCINOLONE ACETONIDE 96563751937 No Longer Active Carlton Hu MD Active PAXIL 40 MG ORAL TABLET take 1 tab po qday for depression 0 PAROXETINE HCL 92472565434 Active Carlton Hu MD Active CHERATUSSIN AC 100-10 MG/5ML ORAL SYRUP 5ml po q6hr PRN Cough 20 13/04/14 GUAIFENESIN-CODEINE 12747337873 No Longer Active Carlton Hu MD Active MEDROL 4 MG ORAL TABLET THERAPY PACK 6 tabs on day 1, 5 tabs on day 2, 4 tabs on day 3, 3 tabs on day 4, 2 tabs on day 5, 1 tab on day 6 2013 METHYLPREDNISOLONE 26905778114 No Longer Active Perez Mora MD Active AZITHROMYCIN 250 MG ORAL TABLET 2 po qd x 1 day, then 1 po q d x 4 days AZITHROMYCIN 49870525376 No Longer Active Perez Ambriz MD Active PROPRANOLOL HCL 60 MG ORAL TABLET 1 PO Q D PROPRANOLOL HCL 97689903024 No Longer Active Perez Mora MD Activ e CHERATUSSIN AC 100-10 MG/5ML ORAL SYRUP take one tsp po Q 6h ours prn cough GUAIFENESIN-CODEINE 84427844875 No Longer Active Zia Mora MD Active AUGMENTIN 875-125 MG ORAL TABLET 1 tab by mouth twice daily with food AMOXICILLIN-POT CLAVULANATE 75251883166 No Longer Act nael Perez Mora MD Active CHERATUSSIN AC 100-10 MG/5ML ORAL SYRUP 1 tsp by mouth every 4 hours as needed for cough GUAIFENESIN-CODEINE 36367341992 No Longe r Active Hugo Restrepo MD Active ACETAMINOPHEN-CODEINE #3 300-30 MG ORAL TABLET 1 PO Q 4-6 HRS AR N PAIN ACETAMINOPHEN-CODEINE 22201942625 No Longer Active Hugo Restrepo MD Active LEVAQUIN 500 MG ORAL TABLET take one po QD LEVO FLOXACIN 08793083647 No Longer Active Griffin HERNANDEZ Active PREDNISONE 20 MG ORAL TABLET Take 3 tabs daily for 3 d ays, 2 tabs daily for 3 days, 1 tab daily for 3 days, 1/2 tab daily for 3 days 11/07 PREDNISONE 94134858162 No Longer Active Carlton Hu MD Acti ve AVELOX 400 MG ORAL TABLET 1 tab by mouth daily MOXIFLOXACIN HCL 47696483078 No Longer Active Carlton Hu MD Active CHERATUSSIN AC 100-10 MG/5ML ORAL SYRUP 1 tsp by mouth every 4 hours as needed for cough GUAIFENESIN-CODEINE 65401973693 No Longe r Active Hugo Restrepo MD Active AVELOX 400 MG ORAL TABLET 1 tab by mouth daily MOXIFLOXACIN HCL 95536691646 No Longer Active Marcy De La Rosa MD PhD Active TERBINAFINE HCL 250 MG ORAL TABLET 1 qDay T ERBINAFINE HCL 45096029414 No Longer Active Marcy De La Rosa MD PhD Active CHERATUSSIN AC 100-10 MG/5ML ORAL SYRUP 1 tsp by mouth every 4 hours as needed for cough GUAIFENESIN-CODEINE 39693652356 No Longe r Active Marcy De La Rosa MD PhD Active AVELOX 400 MG ORAL TABLET 1 tab by mouth daily MOXIFLOXACIN HCL 14337243495 No Longer Active Marcy De La Rosa MD PhD Active HYDROCODONE-ACETAMINOPHEN 5-325 MG ORAL TABLET 1 po q 6hr PRN co ugh HYDROCODONE-ACETAMINOPHEN 45518533730 No Longer Active Marcy De La Rosa MD PhD Active PREDNISONE 20 MG ORAL TABLET 2 tabs daily for 3 days, 1 tab daily for 3 days, 1/2 tab daily for 2 days PREDNISONE 95998961540 No Longer Active Carlton Hu MD Active CEFDINIR 300 MG ORAL CAPSULE by mouth twice a day 2011 CEFDINIR 60400389730 No Longer Active Carlton Hu MD Acti ve HYDROCHLOROTHIAZIDE 25 MG ORAL TABLET 1 TAB PO DAILY HYDROCHLOROTHIAZIDE 39107015052 Active Carlton Hu MD A ctive ACETAMINOPHEN-CODEINE #3 300-30 MG ORAL TABLET 1 tablet po q 4-6 hrs prn pain ACETAMINOPHEN-CODEINE 38303508271 No Longer Active Ridge Bess DO Active ZITHROMAX 250 MG ORAL TABLET 2 po today, then 1 po q days 2-5 20 03/07/07 AZITHROMYCIN 63714930845 No Longer Active Carlton Hu MD Active CHERATUSSIN AC 100-10 MG/5ML ORAL SYRUP take 1 tsp po q4-6 h ours prn cough GUAIFENESIN-CODEINE 63592809678 No Longer Active Jayden Hu MD Active ACETAMINOPHEN-CODEINE #3 300-30 MG ORAL TABLET 1 PO Q 4-6 HR PRN PAIN ACETAMINOPHEN-CODEINE 81727360529 No Longer Active Da raimundo Hu MD Active LORTAB 7.5-500 MG/15ML ORAL ELIXIR 7.5 ml po q 4 hour prn cough HYDROCODONE-ACETAMINOPHEN 80520442751 No Longer Active Carlton Hu MD Active PREDNISONE 20 MG ORAL TABLET 1 po bid 3 days, then 1 po q day 3 days PREDNISONE 33592724469 No Longer Active Carlton Hu MD Active CEFDINIR 300 MG ORAL CAPSULE by mouth twice a day 2011 CEFDINIR 72411856073 No Longer Active Carlton Hu MD Acti ve CEFDINIR 300 MG ORAL CAPSULE by mouth twice a day 2010 CEFDINIR 56807674815 No Longer Active Carlton Hu MD Acti ve CEFDINIR 300 MG ORAL CAPSULE by mouth twice a day 2010 CEFDINIR 20793874068 No Longer Active Carlton Hu MD Acti ve TESSALON PERLES 100 MG ORAL CAPSULE 1 tablet by mouth 3 times daily as needed for cough BENZONATATE 25537244455 No Longer Active Carlton Hu MD Active CEFDINIR 300 MG ORAL CAPSULE by mouth twice a day 2010 CEFDINIR 16431222192 No Longer Active Carlton Hu MD Acti ve ZITHROMAX Z-REYNA 250 MG ORAL TABLET 2 today, then 1 daily for 4 d ays AZITHROMYCIN 79776227094 No Longer Active Hugo Restrepo MD Active TESSALON PERLES 100 MG ORAL CAPSULE 1 tablet by mouth 3 times daily as needed for cough TESSALON PERLES 100 MG ORAL CAPSULE 64663 7 BENZONATATE Inactive PREDNISONE 20 MG ORAL TABLET 1 po bid 3 days, then 1 po q day 3 days PREDNISONE 20 MG ORAL TABLET 544184 PREDNISONE [place] ctive LORTAB 7.5-500 MG/15ML ORAL ELIXIR 7.5 ml po q 4 hour prn cough LORTAB 7.5-500 MG/15ML ORAL ELIXIR HYDROCODONE-A CETAMINOPHEN Inactive ACETAMINOPHEN-CODEINE #3 300-30 MG ORAL TABLET 1 PO Q 4-6 HR PRN PAIN ACETAMINOPHEN-CODEINE #3 300-30 MG ORAL TABLET 9 99305 ACETAMINOPHEN-CODEINE Inactive CHERATUSSIN AC 100-10 MG/5ML ORAL SYRUP take 1 tsp po q4-6 h ours prn cough CHERATUSSIN AC 100-10 MG/5ML ORAL SYRUP 308956 GUAIFENESIN-CODEINE Inactive ACETAMINOPHEN-CODEINE #3 300-30 MG ORAL TABLET 1 tablet po q 4-6 hrs prn pain ACETAMINOPHEN-CODEINE #3 300-30 MG ORAL TABLET 573261 ACETAMINOPHEN-CODEINE Inactive HYDROCODONE-ACETAMINOPHEN 5-325 MG ORAL TABLET 1 po q 6hr PRN co ugh HYDROCODONE-ACETAMINOPHEN 5-325 MG ORAL TABLET 399377 HYDROCODONE-ACETAMINOPHEN Inactive AVELOX 400 MG ORAL TABLET 1 tab by mouth daily AVELOX 400 MG ORAL TABLET MOXIFLOXACIN HCL Inactive CHERATUSSIN AC 100-10 MG/5ML ORAL SYRUP 1 tsp by mouth every 4 hours as needed for cough CHERATUSSIN AC 100-10 MG/5ML ORAL SYRUP 9 92923 GUAIFENESIN-CODEINE Inactive TERBINAFINE HCL 250 MG ORAL TABLET 1 qDay 07/08 TERBINAFINE HCL 250 MG ORAL TABLET 784808 TERBINAFINE HCL Inactive CHERATUSSIN AC 100-10 MG/5ML ORAL SYRUP 1 tsp by mouth every 4 hours as needed for cough CHERATUSSIN AC 100-10 MG/5ML ORAL SYRUP 9 20421 GUAIFENESIN-CODEINE Inactive ACETAMINOPHEN-CODEINE #3 300-30 MG ORAL TABLET 1 PO Q 4-6 HRS AR N PAIN ACETAMINOPHEN-CODEINE #3 300-30 MG ORAL TABLET 260453 ACETAMINOPHEN-CODEINE Inactive CHERATUSSIN AC 100-10 MG/5ML ORAL SYRUP 1 tsp by mouth every 4 hours as needed for cough CHERATUSSIN AC 100-10 MG/5ML ORAL SYRUP 9 92717 GUAIFENESIN-CODEINE Inactive AUGMENTIN 875-125 MG ORAL TABLET 1 tab by mouth twice daily with food AUGMENTIN 875-125 MG ORAL TABLET AMOXICIL MADELINE-POT CLAVULANATE Inactive CHERATUSSIN AC 100-10 MG/5ML ORAL SYRUP take one tsp po Q 6h ours prn cough CHERATUSSIN AC 100-10 MG/5ML ORAL SYRUP 928214 GUAIFENESIN-CODEINE Inactive PROPRANOLOL HCL 60 MG ORAL TABLET 1 PO Q D PROPRANOLOL HCL 60 MG ORAL TABLET 923634 PROPRANOLOL HCL Inactive TOPAMAX 50 MG ORAL TABLET take 1 tab po BID for migraines. 07/02 TOPAMAX 50 MG ORAL TABLET 219199 TOPIRAMATE Inacti ve TOPAMAX 25 MG ORAL TABLET 1 qHS x 1 week, then 1 BID x 1 week, then 1 qAM and 2 qHS x 1 week, then 2 BID (migraine prevention) TOPAMAX 25 MG ORAL TABLET 135382 TOPIRAMATE Inactive LYRICA 75 MG ORAL CAPSULE TAKE 1 CAPSULE BY MOUTH TWICE DAILY LYRICA 75 MG ORAL CAPSULE 636256 PREGABALIN Inactive SYMBICORT 160-4.5 MCG/ACT INHALATION AEROSOL 2 puffs bid wit h rinse after SYMBICORT 160-4.5 MCG/ACT INHALATION AEROSOL BUDESONIDE- FORMOTEROL FUMARATE Inactive PROMETHAZINE-CODEINE 6.25-10 MG/5ML ORAL SYRUP 1 tsp b y mouth every 8 hours prn cough PROMETHAZINE-CODEINE 6.25-10 MG/ 5ML ORAL SYRUP 442039 PROMETHAZINE-CODEINE Inactive CYMBALTA 30 MG ORAL CAPSULE DELAYED RELEASE PARTICLES 1 cap by mouth daily CYMBALTA 30 MG ORAL CAPSULE DELAYED RELE ASE PARTICLES 761459 DULOXETINE HCL Inactive PREMARIN 0.625 MG ORAL TABLET TAKE 1 TAB BY MOUTH DAILY PREMARIN 0.625 MG ORAL TABLET ESTROGENS CONJUGATED Inactive CHERATUSSIN AC 100-10 MG/5ML ORAL SYRUP 1 tsp by mouth every 4 hours as needed for cough CHERATUSSIN AC 100-10 MG/5ML ORAL SYRUP 9 56188 GUAIFENESIN-CODEINE Inactive PROMETHAZINE-CODEINE 6.25-10 MG/5ML ORAL SYRUP 1 tsp b y mouth every 6 hours if needed for cough PROMETHAZINE-CODEINE 6.25-10 MG/5ML ORAL SYRUP 421580 PROMETHAZINE-CODEINE Inactive CHERATUSSIN AC 100-10 MG/5ML ORAL SYRUP 1 tsp by mouth every 4 hours as needed for cough CHERATUSSIN AC 100-10 MG/5ML ORAL SYRUP 9 73812 GUAIFENESIN-CODEINE Inactive FLUTICASONE PROPIONATE 50 MCG/ACT NASAL SUSPENSION 1 t o 2 sprays each nostril daily FLUTICASONE PROPIONATE 50 MCG/AC T NASAL SUSPENSION 7407390 FLUTICASONE PROPIONATE Inactive PREDNISONE 20 MG ORAL TABLET 3 tab PO qd x 2d, 2 tab P O qd x 2d, 1 tab PO qd x 2d, 1/2 tab PO qd x 2d PREDNISONE 20 MG ORAL TAB LET 723126 PREDNISONE Inactive LEVOFLOXACIN 500 MG ORAL TABLET 1 tab PO daily x 10 days LEVOFLOXACIN 500 MG ORAL TABLET 972295 LEVOFLOXACIN Inactive CYCLOBENZAPRINE HCL 10 MG ORAL TABLET 1 tablet by mouth BID prn had pain CYCLOBENZAPRINE HCL 10 MG ORAL TABLET 746297 CYCLOBENZAPRINE HCL Inactive ZOCOR 40 MG ORAL TABLET 1 tab by mouth daily 4 ZOCOR 40 MG ORAL TABLET 344466 SIMVASTATIN Inactive TUSSIONEX PENNKINETIC ER 10-8 MG/5ML [...] FLUTICASONE PROPIO EFE 50 MCG/ACT NASAL SUSPENSION 2583295 FLUTICASONE PROPIONATE Inactive TUSSIONEX PENNKINETIC ER 10-8 MG/5ML ORAL SUSPENSION E XTENDED RELEASE 5 mL PO q 12 hrs PRN cough TUSSIONEX PENNKINETI C ER 10-8 MG/5ML ORAL SUSPENSION EXTENDED RELEASE HYDROCOD POLST-CHLORPHEN POLST I nactive LYRICA 100 MG ORAL CAPSULE Take 1 tab po BID for fibromyalgia 20 11/08/21 LYRICA 100 MG ORAL CAPSULE 114320 PREGABALIN Inact nael TUSSIONEX PENNKINETIC ER 10-8 [...] three days PREDNISONE 20 MG ORAL TABLET 168440 PREDNIS ONE Inactive PROAIR HFA 108 (90 BASE) MCG/ACT INHALATION AEROSOL SO LUTION 2 puffs four times a day as needed PROAIR HFA 108 (90 B ASE) MCG/ACT INHALATION AEROSOL SOLUTION ALBUTEROL SULFATE Inactive PREDNISONE 20 MG ORAL TABLET two tabs by mouth today, then one tab by mouth days two and three and four PREDNISONE 20 MG ORAL TAB LET [id number] PREDNISONE Inactive TUSSIONEX PENNKINETIC ER 10-8 MG/5ML [...] bid 04/20 TOPAMAX 100 MG ORAL TABLET [id number] TOPIRAMATE Inactive CYMBALTA 30 MG ORAL CAPSULE DELAYED RELEASE PARTICLES 1 cap by mouth daily for depression CYMBALTA 30 MG ORAL CAPSULE DELAYED RELEASE PARTICLES [id number] DULOXETINE HCL Inactive TYLENOL WITH CODEINE #3 300-30 MG ORAL TABLET 1-2 po q6hr PRN Pa in TYLENOL WITH CODEINE #3 300-30 MG ORAL TABLET [id number] ACETAMINOPHEN-CODEINE Inactive TYLENOL WITH CODEINE #3 300-30 MG ORAL TABLET TYLENOL WITH CODEINE #3 300-30 MG ORAL TABLET 427778 ACETAMINOPHEN-CODEINE Inactive TRIAMCINOLONE ACETONIDE 0.1 % EXTERNAL CREAM apply bid spari ngly to rash TRIAMCINOLONE ACETONIDE 0.1 % EXTERNAL CREAM 101 4314 TRIAMCINOLONE ACETONIDE Inactive ZITHROMAX Z-REYNA 250 MG ORAL TABLET 2 today, then 1 daily for 4 d ays ZITHROMAX Z-REYNA 250 MG ORAL TABLET 614913 AZITHROMYCIN Inactive CEFDINIR 300 MG ORAL CAPSULE by mouth twice a day 2010 CEFDINIR 300 MG ORAL CAPSULE 656123 CEFDINIR Inactive CEFDINIR 300 MG ORAL CAPSULE by mouth twice a day 2010 CEFDINIR 300 MG ORAL CAPSULE 132211 CEFDINIR Inactive CEFDINIR 300 MG ORAL CAPSULE by mouth twice a day 2010 CEFDINIR 300 MG ORAL CAPSULE 418646 CEFDINIR Inactive CEFDINIR 300 MG ORAL CAPSULE by mouth twice a day 2011 CEFDINIR 300 MG ORAL CAPSULE 022214 CEFDINIR Inactive ZITHROMAX 250 MG ORAL TABLET 2 po today, then 1 po q days 2-5 20 03/07/07 ZITHROMAX 250 MG ORAL TABLET 578465 AZITHROMYCIN [facility] ctive CEFDINIR 300 MG ORAL CAPSULE by mouth twice a day 2011 CEFDINIR 300 MG ORAL CAPSULE 20020704 CEFDINIR Inactive PREDNISONE 20 MG ORAL TABLET 2 tabs daily for 3 days, 1 tab daily for 3 days, 1/2 tab daily for 2 days PREDNISONE 20 MG ORAL T ABLET 292771 PREDNISONE Inactive AVELOX 400 MG ORAL TABLET [...] days 11/07 PREDNISONE 20 MG ORAL TABLET 456498 PREDNISONE Inactive LEVAQUIN 500 MG ORAL TABLET take one po QD LEVAQUIN 500 MG ORAL TABLET 169446 LEVOFLOXACIN Inactive AZITHROMYCIN 250 MG ORAL TABLET 2 po qd x 1 day, then 1 po q d x 4 days AZITHROMYCIN 250 MG ORAL TABLET 074585 AZITHROMY GIOVANNI Inactive MEDROL 4 MG ORAL TABLET THERAPY PACK 6 tabs on day 1, 5 tabs on day 2, 4 tabs on day 3, 3 tabs on day 4, 2 tabs on day 5, 1 tab on day 6 2013 MEDROL 4 MG ORAL TABLET THERAPY PACK 684569 METHYLPREDNISOLONE [facility] ctive CHERATUSSIN AC 100-10 MG/5ML ORAL SYRUP 5ml po q6hr PRN Cough 20 13/04/14 CHERATUSSIN AC 100-10 MG/5ML ORAL SYRUP 909041 GUAIFENE SIN-CODEINE Inactive TRIAMCINOLONE ACETONIDE 0.1 % EXTERNAL CREAM apply three roger es daily prn rash TRIAMCINOLONE ACETONIDE 0.1 % EXTERNAL CREAM 101 4314 TRIAMCINOLONE ACETONIDE Inactive AZITHROMYCIN 250 MG ORAL TABLET 2 po qd x 1 day, then 1 po q d x 4 days AZITHROMYCIN 250 MG ORAL TABLET 418916 AZITHROMY GIOVANNI Inactive MEDROL 4 MG ORAL TABLET THERAPY PACK 6 pills x 1 day, then 5 pills x 1 day then 4 pills x 1 day, then 3 pills x 1 day, then 2 pills x 1 day, then 1 pill x 1 day, then stop MEDROL 4 MG ORAL TABLET THERAPY PACK 851485 METHYLPREDNISOLONE Inactive AMOXICILLIN 500 MG ORAL CAPSULE 1 tab by mouth 3 times daily x 10 days AMOXICILLIN 500 MG ORAL CAPSULE 575502 AMOXICILL IN Inactive AMOXICILLIN 500 MG ORAL CAPSULE 1 tab by mouth 3 times daily x 10 days AMOXICILLIN 500 MG ORAL CAPSULE 171117 AMOXICILL IN Inactive ZITHROMAX 250 MG ORAL TABLET 2 po today, then 1 po q days 2-5 20 12/08/14 ZITHROMAX 250 MG ORAL TABLET 842695 AZITHROMYCIN [facility] AUGMENTIN 875-125 MG ORAL TABLET 1 po BID x 10 days 13/01/20 AUGMENTIN 875-125 MG ORAL TABLET AMOXICILLIN-POT CLAVULANATE Inactive ZITHROMAX Z-REYNA 250 MG ORAL TABLET 2 today, then 1 daily for 4 d ays ZITHROMAX Z-REYNA 250 MG ORAL TABLET 172853 AZITHROMYCIN Inactive ZITHROMAX 250 MG ORAL TABLET 2 po today, then 1 po q days 2-5 20 14/03/21 ZITHROMAX 250 MG ORAL TABLET 207852 AZITHROMYCIN Greer ctive ZITHROMAX Z-REYNA 250 MG ORAL TABLET 2 today, then 1 daily for 4 d ays ZITHROMAX Z-REYNA 250 MG ORAL TABLET 251398 AZITHROMYCIN Inactive CEFDINIR 300 MG ORAL CAPSULE 1 po BID x 10 days 06/21 CEFDINIR 300 MG ORAL CAPSULE 20020704 CEFDINIR Inactive ZITHROMAX 250 MG ORAL TABLET 2 po today, then 1 po q days 2-5 20 13/08/10 ZITHROMAX 250 MG ORAL TABLET 285051 AZITHROMYCIN [facility] ctive LEVAQUIN 500 MG ORAL TABLET 1 tablet by mouth daily 13/09/24 LEVAQUIN 500 MG ORAL TABLET 19971102 LEVOFLOXACIN Inactive SINGULAIR 10 MG ORAL TABLET 1 po qday for allergies 20 14/01/12 SINGULAIR 10 MG ORAL TABLET 20010504 MONTELUKAST SODIUM Inactive AMOXICILLIN 500 MG ORAL CAPSULE 2 po BID x 10 days 201 09/29/08 AMOXICILLIN 500 MG ORAL CAPSULE 435086 AMOXICILLIN Inactive PREDNISONE 20 MG ORAL TABLET 2 tabs daily for 3 days, 1 tab daily for 3 days, 1/2 tab daily for 2 days PREDNISONE 20 MG ORAL T ABLET 319736 PREDNISONE Inactive ZITHROMAX Z-REYNA 250 MG ORAL TABLET 2 today, then 1 daily for 4 d ays ZITHROMAX Z-REYNA 250 MG ORAL TABLET 123082 AZITHROMYCIN Inactive PREDNISONE 20 MG ORAL TABLET 2 tabs daily for 3 days, 1 tab daily for 3 days, 1/2 tab daily for 2 days PREDNISONE 20 MG ORAL T ABLET 565485 PREDNISONE Inactive ZITHROMAX 250 MG ORAL TABLET 2 po today, then 1 po q days 2-5 20 14/09/04 ZITHROMAX 250 MG ORAL TABLET 636838 AZITHROMYCIN [facility] [facility] AMOXICILLIN 500 MG ORAL CAPSULE 1 cap by mouth three times a day AMOXICILLIN 500 MG ORAL CAPSULE 138217 AMOXICILLIN Inactive TERBINAFINE HCL 250 MG ORAL TABLET 1 qDay for nail fungus 7 TERBINAFINE HCL 250 MG ORAL TABLET 892212 TERBINAFINE HCL Inact nael AUGMENTIN 875-125 MG ORAL TABLET 1 po BID x 10 days 16/03/22 AUGMENTIN 875-125 MG ORAL TABLET AMOXICILLIN-POT CLAVULANATE Inactive PREDNISONE 20 MG ORAL TABLET 2 po qd x 5 days PREDNISONE 20 MG ORAL TABLET 468445 PREDNISONE Inactive AZITHROMYCIN 250 MG ORAL TABLET 2 po qd x 1 day, then 1 po q d x 4 days AZITHROMYCIN 250 MG ORAL TABLET 405902 AZITHROMY GIOVANNI Inactive PREDNISONE 50 MG ORAL TABLET Take 50 mg dialy for 6 day s 7 PREDNISONE 50 MG ORAL TABLET 410406 PREDNISONE Inactive AUGMENTIN 875-125 MG ORAL TABLET 1 po BID x 10 days 18/04/16 AUGMENTIN 875-125 MG ORAL TABLET AMOXICILLIN-POT CLAVULANATE Inactive DOXYCYCLINE HYCLATE 100 MG ORAL CAPSULE 1 cap by mouth twice latasha ly DOXYCYCLINE HYCLATE 100 MG ORAL CAPSULE 3580314 DOXYCYCL INE HYCLATE Inactive PREDNISONE 20 MG ORAL TABLET Take 2 tabs day 1 and 2 and 1 t ab days 3 and 4 PREDNISONE 20 MG ORAL TABLET 911731 PREDNISONE Inactive AMOXICILLIN 500 MG ORAL CAPSULE 1 cap by mouth twice daily 10/21 AMOXICILLIN 500 MG ORAL CAPSULE 952325 AMOXICILLIN Inactive TRIAMCINOLONE ACETONIDE 0.1 % EXTERNAL OINTMENT Apply to affected areas TID PRN Rash/Itching for up 2 weeks TRIAMCINOLON E ACETONIDE 0.1 % EXTERNAL OINTMENT 9976643 TRIAMCINOLONE ACETONIDE Inactive ACYCLOVIR 800 MG ORAL TABLET 1 po 5 times daily x 7 days ACYCLOVIR 800 MG ORAL TABLET 758057 ACYCLOVIR Inactive Vital Signs Date Name Value [...] Panel - Chemistry sodium, serum 137 mmol/L 590-554 1906/10/08 carbon dioxide, venous blood 29.9 mmol/L 21.0-32 [...] 0.50 mg/dL 0.00-1.00 cholesterol, serum 324 mg/dL 051-286 0395/10/08 triglyceride, serum, fasting 130 mg/dL 30-200 HDL [...] negative Encounters Code Encounter Date Provider Facility CPT-80152 [id number] Vst-Est Level IV 09:06:31 C ESAU Hu MD [facility] CPT-92889 Level 3 Est. Patient 14:16:41 CDT David Tin dle [facility] [place] CPT-63941 Level 3 Est. Patient 13:57:55 CDT David Tin dle [facility] [place] CPT-41980 Level 3 Est. Patient 16:08:07 CDT David Tin dle [facility] [place] CPT-19307 Level 3 Est. Patient 16:53:54 CDT J Livan haas MD [facility]-41557 [id number] Vst-Est Level IV 08:41:[address] Carlton Hu MD [facility]-41473 Level 3 Est. Patient 09:46:49 KEYSMITH David Tin dle [facility] [place][note 2]-[id number] Vst-Est Level III 11:12:16 CDT Yanet Bess DO [facility] CPT-44117 Level 3 Est. Patient 11:34:49 KEYSMITH Perez Mora MD [facility] CPT-59967 Level 4 Est. Patient 09:51:32 KEYSMITH Carlton rich MD [facility]-85689 Level 3 Est. Patient 10:26:00 KEYSMITH Elise stephenson [facility] [place] CPT-26999 Level 3 Est. Patient 13:35:41 KEYSMITH Carlton rich MD [facility] CPT-50911 Level 3 Est. Patient 10:03:52 KEYSMITH Carlton rich MD [facility] CPT-25547 Level 3 Est. Patient 12:17:50 CDT Hugo Restrepo MD [facility] CPT-93895 Level 3 Est. Patient 13:42:38 CDT Elise Are ll [facility] [place] CPT-46646 Level 3 Est. Patient 13:23:51 CDT Diya Mariana mango [facility] [place] CPT-67821 Level 3 Est. Patient 14:22:19 KEYSMITH Diya cobian [facility] [place] CPT-24294 Level 3 Est. Patient 10:11:46 CDT Carlton rich MD [facility] CPT-13452 Level 3 Est. Patient 17:29:43 CDT Elise Are [facility] [place] CPT-56041 Level 3 Est. Patient 11:58:06 CDT Elise Are [facility] [place] CPT-75917 Level 4 Est. Patient 14:36:51 CDT Carlton rich MD [facility] CPT-97132 Level 3 Est. Patient 18:16:00 KEYSMITH Blaine HERNANDEZ [facility] CPT-87479 Level 3 Est. Patient 09:45:49 KEYSMITH Carlton rich MD [facility] CPT-52209 Level 3 Est. Patient 13:19:20 CDT Carlton rich MD [facility] CPT-25720 Level 3 Est. Patient 13:06:43 CDT Ridge tam DO [facility] CPT-80912 Level 3 Est. Patient 10:03:07 CDT Perez Mora MD [facility] CPT-09911 Level 3 Est. Patient 19:50:35 KEYSMITH Carlton rich MD [facility] CPT-68720 Level 4 Est. Patient 18:05:01 KEYSMITH Carlton rich MD [facility] [place] [facility]-76364 Level 3 Est. Patient 10:45:55 KEYSMITH Hugo Restrepo MD [facility] [place] [facility]-51453 Level 3 Est. Patient 14:12:49 CDT Griffin HERNANDEZ [facility] [place] [facility]-55071 Level 3 Est. Patient 17:37:24 CDT Carlton rich MD [facility] [place] [facility]-58164 Level 3 Est. Patient 16:51:54 CDT Carlton rich MD [facility] [place] [facility]-13027 Level 3 Est. Patient 12:18:11 CDT Hugo Restrepo MD [facility] [place] [facility]-33330 Level 3 Est. Patient 11:30:25 CDT Marcy crisostomo MD PhD [facility] [place] [facility]-55240 Level 3 Est. Patient 12:00:47 KEYSMITH Carlton rich MD [facility] [place] [facility]-93364 Level 3 Est. Patient 16:31:06 KEYSMITH Carlton rich MD [facility] [place] [facility]-00952 Level 3 Est. Patient 16:23:24 KEYSMITH Ridge tam DO [facility] CPT-10505 Level 3 Est. Patient 12:34:12 CDT Carlton rich MD [facility] [place] [facility]-50422 Level 2 Est. Patient 15:43:33 CDT Robi armstrong MD [facility]-61078 Level 4 Est. Patient 14:04:44 CDT Carlton rich MD [facility] [place] [facility]-42771 Level 3 Est. Patient 05:47:59 CDT Ridge tam [facility]-94125 Level 3 Est. Patient 13:12:53 KEYSMITH Carlton rich MD [facility] CPT-24858 Level 3 Est. Patient 14:26:53 CDT Hugo Restrepo MD [facility] Procedures Code Procedure Name Date Entry Date Standard Desc ription CPT-36628 Venipuncture Draw Fee 15:53:34 CDT CPT-000 Give Appropriate Flu Vaccine 14:14:31 CDT 2 CPT-J1040 Depo Medrol 80 mg (Methyl Prednisolone A cetate) 10:42:44 CDT CPT-J1100 Decadron 8mg (Dexamethasone) 10:42:44 CDT 2 CPT-J0696 Rocephin 1gm Inj Solr 14:32:13 CDT CPT-J1020 Depo Medrol 60 mg (Methyl Prednisolone A cetate) 14:32:13 CDT CPT-J1100 Decadron 6mg (Dexamethasone) 14:32:13 CDT 2 CPT-43243 Hip bilat min 2V w AP pelvis 13:16:20 CDT 2 CPT-11256 Pelvis only 13:07:33 CDT CPT-48957 Spec Collection and Handling Fee 11:25:12 C DT CPT-33662 Fluzone Quadrivalent Intramuscular Suspe nsion 0.5 ML 14:31:55 CDT CPT-23215 Abx/Therapy Injection 13:28:47 KEYSMITH CPT-J2930 Solu Medrol 125 mg (Methyl Prednisolone Sodium Succinate) 12:00:47 KEYSMITH CPT-21538 Venipuncture Draw Fee 11:33:31 CDT CPT-29849 EKG Trac and Interp 11:21:09 CDT CPT-03777 Chest 2V Frontal and Lat 11:21:09 CDT 12/15 CPT-83332 Venipuncture Draw Fee 08:02:34 CDT CPT-63715 Chest 2V Frontal and Lat 05:47:59 CDT 06/05
--- OUTSIDE RECORDS SUMMARY | 2019-10-08 09:53 | XMS REPORT | Clinical Summary ---
Author Author Caitlin, Juliana Martinez Organization [facility] Address Unknown Phone Unavailable [...] URI 465.9 Inactive Ridge Bess DO Ac kluti kaah upper respiratory infections of unspecified site Body Mass Index 35.0-35.9 Adult Refinement 2017 Ridge Bess DO Body Mass Index 35.0-35.9, adult BMI 34-34.9 Refinement Cherelle Torres RN Body Mass Index 35.0-35.9, adult BMI 35-35.9 Refinement David Marianneamisha RICEN Body Mass Index 35.0-35.9, adult BMI 34-34.9 Refinement May Vivar MD Body Mass Index 35.0-35.9, adult BMI 35-35.9 Refinement David Marianne [employer] MANAGER Body Mass Index 35.0-35.9, adult BMI 33-33.9 Active David Marianne [employer] CASE MANAGER Body Mass Index 35.0-35.9, adult Upper [...] Acute pharyngitis Shingles 053.9 Active David Marianne [employer]GER Herpes zoster without mention of complication [...] Name NDC Status Provider Patient Instruction ELMIRON 100MG CAP TAKE 2 CAPSULES BY MOUTH IN THE MORNING AND 1 CAPSULE AT BEDTIME PENTOSAN POLYSULFATE SODIUM [id number] Active May Vivar MD Active TRAMADOL HCL 50 MG TABS TAKE 1 TABLET BY MOUTH THREE TIMES DAILY WITH EXTRA STRENGTH TYLENOL TRAMADOL HCL 75553996129 Active Carlton Hu MD Active ALPRAZOLAM 0.5 MG TABS TAKE 1 TABLET BY MOUTH ONCE DAILY NEEDED ALPRAZOLAM 73576385012 Active Carlton Hu MD Active TOPIRAMATE 100 MG TABS TAKE 1 TABLET BY MOUTH TWICE DAILY 1 TOPIRAMATE 52246533686 Active Carlton Hu MD Active ATORVASTATIN CALCIUM 10 MG ORAL TABLET 1 pill by mouth night ly, for cholesterol ATORVASTATIN CALCIUM 05850357667 Active Columba Parrish Active TRIAMCINOLONE ACETONIDE 0.1 % EXTERNAL CREAM apply bid spari ngly to rash TRIAMCINOLONE ACETONIDE 30285680879 No Longer Active Carlton Hu MD Active TYLENOL WITH CODEINE #3 300-30 MG ORAL TABLET ACETAMINOPHEN-CODEINE 48813665877 No Longer Active Carlton Hu MD Active TYLENOL WITH CODEINE #3 300-30 MG ORAL TABLET 1-2 po q6hr PRN Pa in ACETAMINOPHEN-CODEINE 66451858777 No Longer Active David HERNANDEZ RN Active ACYCLOVIR 800 MG ORAL TABLET 1 po 5 times daily x 7 days ACYCLOVIR 41966797180 No Longer Active David Lopes APRN Active TOPAMAX 100 MG ORAL TABLET 1 by mouth twice daily TOPIRAMATE 72773028491 Active Carlton Hu MD Active TRIAMCINOLONE ACETONIDE 0.1 % EXTERNAL OINTMENT Apply to affected areas TID PRN Rash/Itching for up 2 weeks TRIAMCINOLONE ACETON KAYLA 34371673166 No Longer Active David Lopes APRN Active AMOXICILLIN 500 MG ORAL CAPSULE 1 cap by mouth twice daily 10/21 AMOXICILLIN 38150870033 No Longer Active David Lopes APRN Active CYMBALTA 30 MG ORAL CAPSULE DELAYED RELEASE PARTICLES 1 cap by mouth daily for depression DULOXETINE HCL 04500437179 No Longer Active Carlton Hu MD Active CYMBALTA 60 MG ORAL CAPSULE DELAYED RELEASE PARTICLES 1 cap by mouth daily for mood and pain DULOXETINE HCL 97160274830 Active Carlton Hu MD Active TUSSIONEX PENNKINETIC ER 10-8 MG/5ML ORAL SUSPENSION E XTENDED RELEASE 5ml po q12hr PRN Cough HYDROCOD POLST-CHLORPHEN POLST 17350686197 Active Carlton Hu MD Active PREDNISONE 20 MG ORAL TABLET Take 2 tabs day 1 and 2 and 1 t ab days 3 and 4 PREDNISONE 90779552252 No Longer Active David Lopes APRN Active DOXYCYCLINE HYCLATE 100 MG ORAL CAPSULE 1 cap by mouth twice latasha ly DOXYCYCLINE HYCLATE 76661695860 No Longer Active David Lopes APRN Active TOPAMAX 100 MG ORAL TABLET Take 1 tablet po bid TOPIRAMATE 64542852799 No Longer Active David Marianne [employer] MANAGER Active TUSSIONEX PENNKINETIC ER 10-8 MG/5ML ORAL SUSPENSION E XTENDED RELEASE 5ml po q12hr PRN Cough HYDROCOD POLST-CHLORPHEN POLST 5 6081145054 No Longer Active David Marianne [employer] MANAGER Active AUGMENTIN 875-125 MG ORAL TABLET 1 po BID x 10 days 20 18/04/16 AMOXICILLIN-POT CLAVULANATE 84697563342 No Longer Active David Marianne [employer] CASE MANAGER Active PREDNISONE 50 MG ORAL TABLET Take 50 mg dialy for 6 day s 7 PREDNISONE 54991222222 No Longer Active David Marianne [employer] CASE MANAGER Active TUSSIONEX PENNKINETIC ER 10-8 MG/5ML ORAL SUSPENSION E XTENDED RELEASE 5ml po q12hr PRN Cough HYDROCOD POLST-CHLORPHEN POLST 5 0763905737 No Longer Active Cherelle Torres RN Active PREDNISONE 20 MG ORAL TABLET two tabs by mouth today, then one tab by mouth days two and three and four PREDNISONE 00923903662 No Lo nger Active Cherelle Torres RN Active AZITHROMYCIN 250 MG ORAL TABLET 2 po qd x 1 day, then 1 po q d x 4 days AZITHROMYCIN 02273285552 No Longer Active Ridge Bess DO Active PREDNISONE 20 MG ORAL TABLET 2 po qd x 5 days P REDNISONE 93391393192 No Longer Active Perez Mora MD Active PROAIR HFA 108 (90 BASE) MCG/ACT INHALATION AEROSOL SO LUTION 2 puffs four times a day as needed ALBUTEROL SULFATE 27424713691 No Long er Active Becky FUENTES Active ASPIRIN 81 MG ORAL TABLET 1 po qd ASPIRIN 76365375723 Active Carlton Hu MD Active PREDNISONE 20 MG ORAL TABLET 1 tab twice daily for 3 d ay, then one daily for three days PREDNISONE 55236656890 No Longer Active Carlton Hu MD Active AUGMENTIN 875-125 MG ORAL TABLET 1 po BID x 10 days 16/03/22 AMOXICILLIN-POT CLAVULANATE 37771362909 No Longer Active Elise Garcia APRN Active TERBINAFINE HCL 250 MG ORAL TABLET 1 qDay for nail fungus 7 TERBINAFINE HCL 48776356518 No Longer Active Carlton Hu MD A ctive AMOXICILLIN 500 MG ORAL CAPSULE 1 cap by mouth three times a day AMOXICILLIN 83428216418 No Longer Active Carlton Hu MD Active ELMIRON 100 MG ORAL CAPSULE 2 tablets in the am and 1 tablet at hs PENTOSAN POLYSULFATE SODIUM 49605070320 No Longer Active Robert Hu MD Active MUCINEX D 60-600 MG ORAL TABLET EXTENDED RELEASE 12 HOUR 1 t ab po q am PSEUDOEPHEDRINE-GUAIFENESIN 00775786207 No Longer Act nael Carlton Hu MD Active MUCINEX DM MAXIMUM STRENGTH 60-1200 MG ORAL TABLET EXT ENDED RELEASE 12 HOUR 1 tab po q am DEXTROMETHORPHAN-GUAIFENESIN 64415913176 No Longer Active Carlton Hu MD Active TUSSIONEX PENNKINETIC ER 10-8 MG/5ML ORAL SUSPENSION E XTENDED RELEASE 5ml po q12hr PRN Cough HYDROCOD POLST-CHLORPHEN POLST 5 4832209601 No Longer Active Carlton Hu MD Active POTASSIUM CHLORIDE ER 20 MEQ ORAL TABLET EXTENDED RELE ASE Take 1 by mouth 4 times daily for 7 days POTASSIUM CHLORIDE 51590725362 No Longer Active Carlton Hu MD Active ZITHROMAX 250 MG ORAL TABLET 2 po today, then 1 po q days 2-5 20 14/09/04 AZITHROMYCIN 63252434918 No Longer Active Elise Garcia APRN Active TUSSIONEX PENNKINETIC ER 10-8 MG/5ML ORAL SUSPENSION E XTENDED RELEASE 5 ml twice a day as needed for cough HYDROCOD POLST-CHLORPH EN POLST 60299821739 No Longer Active Elise Garcia APRN Active MONTELUKAST SODIUM 10 MG ORAL TABLET 1 po daily for Allergy MONTELUKAST SODIUM 48464146827 Active Carlton Hu MD Ac tive TUSSIONEX PENNKINETIC ER 10-8 MG/5ML ORAL SUSPENSION E XTENDED RELEASE 5ml po q12hr PRN Cough HYDROCOD POLST-CHLORPHEN POLST 5 0669474794 No Longer Active Hugo Restrepo MD Active GABAPENTIN 100 MG ORAL CAPSULE 1 po BID for fibromyalgia GABAPENTIN 65967703565 Active ALFREDO Holly Active LYRICA 100 MG ORAL CAPSULE Take 1 tab po BID for fibromyalgia 20 11/08/21 PREGABALIN 94561124486 No Longer Active Elise Garcia APRN A ctive PREDNISONE 20 MG ORAL TABLET 2 tabs daily for 3 days, 1 tab daily for 3 days, 1/2 tab daily for 2 days PREDNISONE 55978480131 No Longer Active Diya De Guzman APRN Active TUSSIONEX PENNKINETIC ER 10-8 MG/5ML ORAL SUSPENSION E XTENDED RELEASE 5 mL PO q 12 hrs PRN cough HYDROCOD POLST-CHLORPHEN POLST 865171 80349 No Longer Active Venullina Gege RICEN Active FLUTICASONE PROPIONATE 50 MCG/ACT NASAL SUSPENSION 2 s prays each nostril daily until bottle is empty FLUTICASONE PROPIONATE 502429526 99 No Longer Active Jillina Frakerriel [employer]NAGER Active ASMANEX 60 METERED DOSES 220 MCG/INH INHALATION AEROSO L POWDER BREATH ACTIVATED 1 puff bid with rinse after MOMETASONE FUROATE 0127926 4102 No Longer Active Jillina Frazell [employer] MANAGER Active ZITHROMAX Z-REYNA 250 MG ORAL TABLET 2 today, then 1 daily for 4 d ays AZITHROMYCIN 35054168201 No Longer Active Elise Garcia APRN Active TUSSIONEX PENNKINETIC ER 10-8 MG/5ML ORAL SUSPENSION E XTENDED RELEASE 5ml po q12hr PRN Cough HYDROCOD POLST-CHLORPHEN POLST 5 4937664615 No Longer Active Elise Garcia [employer] CASE MANAGER Active PREDNISONE 20 MG ORAL TABLET 2 tabs daily for 3 days, 1 tab daily for 3 days, 1/2 tab daily for 2 days PREDNISONE 71817271930 No Longer Active Diya De Guzman [employer] MANAGER Active AMOXICILLIN 500 MG ORAL CAPSULE 2 po BID x 10 days 201 09/29/08 AMOXICILLIN 64049696135 No Longer Active Diya De Guzman [employer] CASE MANAGER Act nael SINGULAIR 10 MG ORAL TABLET 1 po qday for allergies 20 14/01/12 MONTELUKAST SODIUM 47617484741 No Longer Active Carlton Hu MD Active LEVAQUIN 500 MG ORAL TABLET 1 tablet by mouth daily 13/09/24 LEVOFLOXACIN 67337690218 No Longer Active Carlton Hu MD Acti ve FLUTICASONE PROPIONATE 50 MCG/ACT NASAL SUSPENSION 2 s prays each nostril daily for 2 weeks, then 1 spray each nostril daily. FLUTICASONE PROPIONATE 27223948949 Active Carlton Hu MD Active ZITHROMAX 250 MG ORAL TABLET 2 po today, then 1 po q days 2-5 20 13/08/10 AZITHROMYCIN 14635768231 No Longer Active Elise Garcia APRN Active CEFDINIR 300 MG ORAL CAPSULE 1 po BID x 10 days CEFDINIR 79533019594 No Longer Active Carlton Hu MD Active ZOCOR 40 MG ORAL TABLET 1 tab by mouth daily SI MVASTATIN 29538064517 No Longer Active Carlton Hu MD Active CYCLOBENZAPRINE HCL 10 MG ORAL TABLET 1 tablet by mouth BID prn had pain CYCLOBENZAPRINE HCL 42639127840 No Longer Active Jayden Hu MD Active LEVOFLOXACIN 500 MG ORAL TABLET 1 tab PO daily x 10 days LEVOFLOXACIN 07249909827 No Longer Active Carlton Hu MD Acti ve PREDNISONE 20 MG ORAL TABLET 3 tab PO qd x 2d, 2 tab P O qd x 2d, 1 tab PO qd x 2d, 1/2 tab PO qd x 2d PREDNISONE 65537767159 No Lo nger Active Carlton Hu MD Active FLUTICASONE PROPIONATE 50 MCG/ACT NASAL SUSPENSION 1 t o 2 sprays each nostril daily FLUTICASONE PROPIONATE 55060936559 No Longer Ac tive Blaine HERNANDEZ Active CHERATUSSIN AC 100-10 MG/5ML ORAL SYRUP 1 tsp by mouth every 4 hours as needed for cough GUAIFENESIN-CODEINE 73621565638 No Longe r Active Blaine HERNANDEZ Active PROMETHAZINE-CODEINE 6.25-10 MG/5ML ORAL SYRUP 1 tsp b y mouth every 6 hours if needed for cough PROMETHAZINE-CODEINE 71384127339 No Longer Active Blaine HERNANDEZ Active CHERATUSSIN AC 100-10 MG/5ML ORAL SYRUP 1 tsp by mouth every 4 hours as needed for cough GUAIFENESIN-CODEINE 31126336200 No Longe r Active Blaine HERNANDEZ Active ZITHROMAX Z-REYNA 250 MG ORAL TABLET 2 today, then 1 daily for 4 d ays AZITHROMYCIN 42113425354 No Longer Active Columba Raida Act nael ZITHROMAX 250 MG ORAL TABLET 2 po today, then 1 po q days 2-5 20 14/03/21 AZITHROMYCIN 00101124866 No Longer Active Carlton Hu MD Active ZITHROMAX Z-REYNA 250 MG ORAL TABLET 2 today, then 1 daily for 4 d ays AZITHROMYCIN 36891626179 No Longer Active Columba Raida Act nael AUGMENTIN 875-125 MG ORAL TABLET 1 po BID x 10 days 13/01/20 AMOXICILLIN-POT CLAVULANATE 10836867047 No Longer Active Diya De Guzman APRN Active ZITHROMAX 250 MG ORAL TABLET 2 po today, then 1 po q days 2-5 20 12/08/14 AZITHROMYCIN 52976550782 No Longer Active Carlton Hu MD Active PREMARIN 0.625 MG ORAL TABLET TAKE 1 TAB BY MOUTH DAILY ESTROGENS CONJUGATED 04825041144 No Longer Active Ridge Bess DO A ctive CYMBALTA 30 MG ORAL CAPSULE DELAYED RELEASE PARTICLES 1 cap by mouth daily DULOXETINE HCL 29897214478 No Longer Active Ridge Ya ee DO Active AMOXICILLIN 500 MG ORAL CAPSULE 1 tab by mouth 3 times daily x 10 days AMOXICILLIN 08692884101 No Longer Active Carlton bustamante MD Active AMOXICILLIN 500 MG ORAL CAPSULE 1 tab by mouth 3 times daily x 10 days AMOXICILLIN 56755516360 No Longer Active Carlton bustamante MD Active PROMETHAZINE-CODEINE 6.25-10 MG/5ML ORAL SYRUP 1 tsp b y mouth every 8 hours prn cough PROMETHAZINE-CODEINE 36651185716 No Longer Acti ve Carlton Hu MD Active MEDROL 4 MG ORAL TABLET THERAPY PACK 6 pills x 1 day, then 5 pills x 1 day then 4 pills x 1 day, then 3 pills x 1 day, then 2 pills x 1 day, then 1 pill x 1 day, then stop METHYLPREDNISOLONE 60679967003 No Long er Active Perez Mora MD Active AZITHROMYCIN 250 MG ORAL TABLET 2 po qd x 1 day, then 1 po q d x 4 days AZITHROMYCIN 49961947449 No Longer Active Perez Ambriz MD Active SYMBICORT 160-4.5 MCG/ACT INHALATION AEROSOL 2 puffs bid wit h rinse after BUDESONIDE-FORMOTEROL FUMARATE 16187491602 N o Longer Active Perez Mora MD Active LYRICA 75 MG ORAL CAPSULE TAKE 1 CAPSULE BY MOUTH TWICE DAILY PREGABALIN 77910728977 No Longer Active Carlton Hu MD Acti ve TOPAMAX 25 MG ORAL TABLET 1 qHS x 1 week, then 1 BID x 1 week, then 1 qAM and 2 qHS x 1 week, then 2 BID (migraine prevention) T OPIRAMATE 42207928807 No Longer Active Jerica FUENTES Active TOPAMAX 50 MG ORAL TABLET take 1 tab po BID for migraines. 07/02 TOPIRAMATE 34794422813 No Longer Active Jerica Manzoerica JEFFA Active TRIAMCINOLONE ACETONIDE 0.1 % EXTERNAL CREAM apply three roger es daily prn rash TRIAMCINOLONE ACETONIDE 99007457545 No Longer Active Carlton Hu MD Active PAXIL 40 MG ORAL TABLET take 1 tab po qday for depression 0 PAROXETINE HCL 80007607297 Active Carlton Hu MD Active CHERATUSSIN AC 100-10 MG/5ML ORAL SYRUP 5ml po q6hr PRN Cough 20 13/04/14 GUAIFENESIN-CODEINE 28120926745 No Longer Active Carlton Hu MD Active MEDROL 4 MG ORAL TABLET THERAPY PACK 6 tabs on day 1, 5 tabs on day 2, 4 tabs on day 3, 3 tabs on day 4, 2 tabs on day 5, 1 tab on day 6 2013 METHYLPREDNISOLONE 95501652275 No Longer Active Perez Mora MD Active AZITHROMYCIN 250 MG ORAL TABLET 2 po qd x 1 day, then 1 po q d x 4 days AZITHROMYCIN 82808384208 No Longer Active Perez Ambriz MD Active PROPRANOLOL HCL 60 MG ORAL TABLET 1 PO Q D PROPRANOLOL HCL 97200443505 No Longer Active Perez Mora MD Activ e CHERATUSSIN AC 100-10 MG/5ML ORAL SYRUP take one tsp po Q 6h ours prn cough GUAIFENESIN-CODEINE 00418301481 No Longer Active Zia Mora MD Active AUGMENTIN 875-125 MG ORAL TABLET 1 tab by mouth twice daily with food AMOXICILLIN-POT CLAVULANATE 99110407985 No Longer Act nael Perez Mora MD Active CHERATUSSIN AC 100-10 MG/5ML ORAL SYRUP 1 tsp by mouth every 4 hours as needed for cough GUAIFENESIN-CODEINE 60251912196 No Longe r Active Hugo Restrepo MD Active ACETAMINOPHEN-CODEINE #3 300-30 MG ORAL TABLET 1 PO Q 4-6 HRS VT N PAIN ACETAMINOPHEN-CODEINE 68619363933 No Longer Active Hugo Restrepo MD Active LEVAQUIN 500 MG ORAL TABLET take one po QD LEVO FLOXACIN 55851366861 No Longer Active Griffin HERNANDEZ Active PREDNISONE 20 MG ORAL TABLET Take 3 tabs daily for 3 d ays, 2 tabs daily for 3 days, 1 tab daily for 3 days, 1/2 tab daily for 3 days 11/07 PREDNISONE 08103166029 No Longer Active Carlton Hu MD Acti ve AVELOX 400 MG ORAL TABLET 1 tab by mouth daily MOXIFLOXACIN HCL 37984856058 No Longer Active Carlton Hu MD Active CHERATUSSIN AC 100-10 MG/5ML ORAL SYRUP 1 tsp by mouth every 4 hours as needed for cough GUAIFENESIN-CODEINE 33580513162 No Longe r Active Hugo Restrepo MD Active AVELOX 400 MG ORAL TABLET 1 tab by mouth daily MOXIFLOXACIN HCL 67000626324 No Longer Active Marcy De La Rosa MD PhD Active TERBINAFINE HCL 250 MG ORAL TABLET 1 qDay T ERBINAFINE HCL 49053087485 No Longer Active Marcy De La Rosa MD PhD Active CHERATUSSIN AC 100-10 MG/5ML ORAL SYRUP 1 tsp by mouth every 4 hours as needed for cough GUAIFENESIN-CODEINE 00924915507 No Longe r Active Marcy De La Rosa MD PhD Active AVELOX 400 MG ORAL TABLET 1 tab by mouth daily MOXIFLOXACIN HCL 73523941043 No Longer Active Marcy De La Rosa MD PhD Active HYDROCODONE-ACETAMINOPHEN 5-325 MG ORAL TABLET 1 po q 6hr PRN co ugh HYDROCODONE-ACETAMINOPHEN 03691966045 No Longer Active Marcy De La Rosa MD PhD Active PREDNISONE 20 MG ORAL TABLET 2 tabs daily for 3 days, 1 tab daily for 3 days, 1/2 tab daily for 2 days PREDNISONE 27674558725 No Longer Active Carlton Hu MD Active CEFDINIR 300 MG ORAL CAPSULE by mouth twice a day 2011 CEFDINIR 87525927875 No Longer Active Carlton Hu MD Acti ve HYDROCHLOROTHIAZIDE 25 MG ORAL TABLET 1 TAB PO DAILY HYDROCHLOROTHIAZIDE 73577500225 Active Carlton Hu MD A ctive ACETAMINOPHEN-CODEINE #3 300-30 MG ORAL TABLET 1 tablet po q 4-6 hrs prn pain ACETAMINOPHEN-CODEINE 93526857994 No Longer Active Ridge Bess DO Active ZITHROMAX 250 MG ORAL TABLET 2 po today, then 1 po q days 2-5 20 03/07/07 AZITHROMYCIN 18273279995 No Longer Active Carlton Hu MD Active CHERATUSSIN AC 100-10 MG/5ML ORAL SYRUP take 1 tsp po q4-6 h ours prn cough GUAIFENESIN-CODEINE 25175216952 No Longer Active Jayden Hu MD Active ACETAMINOPHEN-CODEINE #3 300-30 MG ORAL TABLET 1 PO Q 4-6 HR PRN PAIN ACETAMINOPHEN-CODEINE 78538965382 No Longer Active Da raimundo uH MD Active LORTAB 7.5-500 MG/15ML ORAL ELIXIR 7.5 ml po q 4 hour prn cough HYDROCODONE-ACETAMINOPHEN 06648757902 No Longer Active Carlton Hu MD Active PREDNISONE 20 MG ORAL TABLET 1 po bid 3 days, then 1 po q day 3 days PREDNISONE 14867750386 No Longer Active Carlton Hu MD Active CEFDINIR 300 MG ORAL CAPSULE by mouth twice a day 2011 CEFDINIR 81475265661 No Longer Active Carlton Hu MD Acti ve CEFDINIR 300 MG ORAL CAPSULE by mouth twice a day 2010 CEFDINIR 13397739466 No Longer Active Carlton Hu MD Acti ve CEFDINIR 300 MG ORAL CAPSULE by mouth twice a day 2010 CEFDINIR 24990306792 No Longer Active Carlton Hu MD Acti ve TESSALON PERLES 100 MG ORAL CAPSULE 1 tablet by mouth 3 times daily as needed for cough BENZONATATE 38182819703 No Longer Active Carlton Hu MD Active CEFDINIR 300 MG ORAL CAPSULE by mouth twice a day 2010 CEFDINIR 24907298078 No Longer Active Carlton Hu MD Acti ve ZITHROMAX Z-REYNA 250 MG ORAL TABLET 2 today, then 1 daily for 4 d ays AZITHROMYCIN 21825243309 No Longer Active Hugo Restrepo MD Active TESSALON PERLES 100 MG ORAL CAPSULE 1 tablet by mouth 3 times daily as needed for cough TESSALON PERLES 100 MG ORAL CAPSULE 65051 7 BENZONATATE Inactive PREDNISONE 20 MG ORAL TABLET 1 po bid 3 days, then 1 po q day 3 days PREDNISONE 20 MG ORAL TABLET 586639 PREDNISONE Presidio ctive LORTAB 7.5-500 MG/15ML ORAL ELIXIR 7.5 ml po q 4 hour prn cough LORTAB 7.5-500 MG/15ML ORAL ELIXIR HYDROCODONE-A CETAMINOPHEN Inactive ACETAMINOPHEN-CODEINE #3 300-30 MG ORAL TABLET 1 PO Q 4-6 HR PRN PAIN ACETAMINOPHEN-CODEINE #3 300-30 MG ORAL TABLET 9 97661 ACETAMINOPHEN-CODEINE Inactive CHERATUSSIN AC 100-10 MG/5ML ORAL SYRUP take 1 tsp po q4-6 h ours prn cough CHERATUSSIN AC 100-10 MG/5ML ORAL SYRUP 591507 GUAIFENESIN-CODEINE Inactive ACETAMINOPHEN-CODEINE #3 300-30 MG ORAL TABLET 1 tablet po q 4-6 hrs prn pain ACETAMINOPHEN-CODEINE #3 300-30 MG ORAL TABLET 308820 ACETAMINOPHEN-CODEINE Inactive HYDROCODONE-ACETAMINOPHEN 5-325 MG ORAL TABLET 1 po q 6hr PRN co ugh HYDROCODONE-ACETAMINOPHEN 5-325 MG ORAL TABLET 012208 HYDROCODONE-ACETAMINOPHEN Inactive AVELOX 400 MG ORAL TABLET 1 tab by mouth daily AVELOX 400 MG ORAL TABLET MOXIFLOXACIN HCL Inactive CHERATUSSIN AC 100-10 MG/5ML ORAL SYRUP 1 tsp by mouth every 4 hours as needed for cough CHERATUSSIN AC 100-10 MG/5ML ORAL SYRUP 9 22887 GUAIFENESIN-CODEINE Inactive TERBINAFINE HCL 250 MG ORAL TABLET 1 qDay 07/08 TERBINAFINE HCL 250 MG ORAL TABLET 981936 TERBINAFINE HCL Inactive CHERATUSSIN AC 100-10 MG/5ML ORAL SYRUP 1 tsp by mouth every 4 hours as needed for cough CHERATUSSIN AC 100-10 MG/5ML ORAL SYRUP 9 74542 GUAIFENESIN-CODEINE Inactive ACETAMINOPHEN-CODEINE #3 300-30 MG ORAL TABLET 1 PO Q 4-6 HRS [place] N PAIN ACETAMINOPHEN-CODEINE #3 300-30 MG ORAL TABLET 401803 ACETAMINOPHEN-CODEINE Inactive CHERATUSSIN AC 100-10 MG/5ML ORAL SYRUP 1 tsp by mouth every 4 hours as needed for cough CHERATUSSIN AC 100-10 MG/5ML ORAL SYRUP 9 05140 GUAIFENESIN-CODEINE Inactive AUGMENTIN 875-125 MG ORAL TABLET 1 tab by mouth twice daily with food AUGMENTIN 875-125 MG ORAL TABLET AMOXICIL MADELINE-POT CLAVULANATE Inactive CHERATUSSIN AC 100-10 MG/5ML ORAL SYRUP take one tsp po Q 6h ours prn cough CHERATUSSIN AC 100-10 MG/5ML ORAL SYRUP 760399 GUAIFENESIN-CODEINE Inactive PROPRANOLOL HCL 60 MG ORAL TABLET 1 PO Q D PROPRANOLOL HCL 60 MG ORAL TABLET 415629 PROPRANOLOL HCL Inactive TOPAMAX 50 MG ORAL TABLET take 1 tab po BID for migraines. 07/02 TOPAMAX 50 MG ORAL TABLET 118897 TOPIRAMATE Inacti ve TOPAMAX 25 MG ORAL TABLET 1 qHS x 1 week, then 1 BID x 1 week, then 1 qAM and 2 qHS x 1 week, then 2 BID (migraine prevention) TOPAMAX 25 MG ORAL TABLET 140791 TOPIRAMATE Inactive LYRICA 75 MG ORAL CAPSULE TAKE 1 CAPSULE BY MOUTH TWICE DAILY LYRICA 75 MG ORAL CAPSULE 978830 PREGABALIN Inactive SYMBICORT 160-4.5 MCG/ACT INHALATION AEROSOL 2 puffs bid wit h rinse after SYMBICORT 160-4.5 MCG/ACT INHALATION AEROSOL BUDESONIDE- FORMOTEROL FUMARATE Inactive PROMETHAZINE-CODEINE 6.25-10 MG/5ML ORAL SYRUP 1 tsp b y mouth every 8 hours prn cough PROMETHAZINE-CODEINE 6.25-10 MG/ 5ML ORAL SYRUP 419806 PROMETHAZINE-CODEINE Inactive CYMBALTA 30 MG ORAL CAPSULE DELAYED RELEASE PARTICLES 1 cap by mouth daily CYMBALTA 30 MG ORAL CAPSULE DELAYED RELE ASE PARTICLES 924470 DULOXETINE HCL Inactive PREMARIN 0.625 MG ORAL TABLET TAKE 1 TAB BY MOUTH DAILY PREMARIN 0.625 MG ORAL TABLET ESTROGENS CONJUGATED Inactive CHERATUSSIN AC 100-10 MG/5ML ORAL SYRUP 1 tsp by mouth every 4 hours as needed for cough CHERATUSSIN AC 100-10 MG/5ML ORAL SYRUP 9 59363 GUAIFENESIN-CODEINE Inactive PROMETHAZINE-CODEINE 6.25-10 MG/5ML ORAL SYRUP 1 tsp b y mouth every 6 hours if needed for cough PROMETHAZINE-CODEINE 6.25-10 MG/5ML ORAL SYRUP 200663 PROMETHAZINE-CODEINE Inactive CHERATUSSIN AC 100-10 MG/5ML ORAL SYRUP 1 tsp by mouth every 4 hours as needed for cough CHERATUSSIN AC 100-10 MG/5ML ORAL SYRUP 9 08803 GUAIFENESIN-CODEINE Inactive FLUTICASONE PROPIONATE 50 MCG/ACT NASAL SUSPENSION 1 t o 2 sprays each nostril daily FLUTICASONE PROPIONATE 50 MCG/AC T NASAL SUSPENSION 7375222 FLUTICASONE PROPIONATE Inactive PREDNISONE 20 MG ORAL TABLET 3 tab PO qd x 2d, 2 tab P O qd x 2d, 1 tab PO qd x 2d, 1/2 tab PO qd x 2d PREDNISONE 20 MG ORAL TAB LET 820331 PREDNISONE Inactive LEVOFLOXACIN 500 MG ORAL TABLET 1 tab PO daily x 10 days LEVOFLOXACIN 500 MG ORAL TABLET 985995 LEVOFLOXACIN Inactive CYCLOBENZAPRINE HCL 10 MG ORAL TABLET 1 tablet by mouth BID prn had pain CYCLOBENZAPRINE HCL 10 MG ORAL TABLET 335409 CYCLOBENZAPRINE HCL Inactive ZOCOR 40 MG ORAL TABLET 1 tab by mouth daily 4 ZOCOR 40 MG ORAL TABLET 565815 SIMVASTATIN Inactive TUSSIONEX PENNKINETIC ER 10-8 MG/5ML [...] FLUTICASONE PROPIO EFE 50 MCG/ACT NASAL SUSPENSION 7381638 FLUTICASONE PROPIONATE Inactive TUSSIONEX PENNKINETIC ER 10-8 MG/5ML ORAL SUSPENSION E XTENDED RELEASE 5 mL PO q 12 hrs PRN cough TUSSIONEX PENNKINETI C ER 10-8 MG/5ML ORAL SUSPENSION EXTENDED RELEASE HYDROCOD POLST-CHLORPHEN POLST I nactive LYRICA 100 MG ORAL CAPSULE Take 1 tab po BID for fibromyalgia 20 11/08/21 LYRICA 100 MG ORAL CAPSULE 818980 PREGABALIN Inact nael TUSSIONEX PENNKINETIC ER 10-8 [...] three days PREDNISONE 20 MG ORAL TABLET 544926 PREDNIS ONE Inactive PROAIR HFA 108 (90 BASE) MCG/ACT INHALATION AEROSOL SO LUTION 2 puffs four times a day as needed PROAIR HFA 108 (90 B ASE) MCG/ACT INHALATION AEROSOL SOLUTION ALBUTEROL SULFATE Inactive PREDNISONE 20 MG ORAL TABLET two tabs by mouth today, then one tab by mouth days two and three and four PREDNISONE 20 MG ORAL TAB LET [id number] PREDNISONE Inactive TUSSIONEX PENNKINETIC ER 10-8 MG/5ML [...] bid 04/20 TOPAMAX 100 MG ORAL TABLET 531146 TOPIRAMATE Inactive CYMBALTA 30 MG ORAL CAPSULE DELAYED RELEASE PARTICLES 1 cap by mouth daily for depression CYMBALTA 30 MG ORAL CAPSULE DELAYED RELEASE PARTICLES 539965 DULOXETINE HCL Inactive TYLENOL WITH CODEINE #3 300-30 MG ORAL TABLET 1-2 po q6hr PRN Pa in TYLENOL WITH CODEINE #3 300-30 MG ORAL TABLET [id number] ACETAMINOPHEN-CODEINE Inactive TYLENOL WITH CODEINE #3 300-30 MG ORAL TABLET TYLENOL WITH CODEINE #3 300-30 MG ORAL TABLET [id number] ACETAMINOPHEN-CODEINE Inactive TRIAMCINOLONE ACETONIDE 0.1 % EXTERNAL CREAM apply bid spari ngly to rash TRIAMCINOLONE ACETONIDE 0.1 % EXTERNAL CREAM 101 4312 TRIAMCINOLONE ACETONIDE Inactive ZITHROMAX Z-REYNA 250 MG ORAL TABLET 2 today, then 1 daily for 4 d ays ZITHROMAX Z-REYNA 250 MG ORAL TABLET 288631 AZITHROMYCIN Inactive CEFDINIR 300 MG ORAL CAPSULE by mouth twice a day 2010 CEFDINIR 300 MG ORAL CAPSULE [id number] CEFDINIR Inactive CEFDINIR 300 MG ORAL CAPSULE by mouth twice a day 2010 CEFDINIR 300 MG ORAL CAPSULE 610093 CEFDINIR Inactive CEFDINIR 300 MG ORAL CAPSULE by mouth twice a day 2010 CEFDINIR 300 MG ORAL CAPSULE 886608 CEFDINIR Inactive CEFDINIR 300 MG ORAL CAPSULE by mouth twice a day 2011 CEFDINIR 300 MG ORAL CAPSULE 962157 CEFDINIR Inactive ZITHROMAX 250 MG ORAL TABLET 2 po today, then 1 po q days 2-5 20 03/07/07 ZITHROMAX 250 MG ORAL TABLET 069228 AZITHROMYCIN Presidio ctive CEFDINIR 300 MG ORAL CAPSULE by mouth twice a day 2011 CEFDINIR 300 MG ORAL CAPSULE 20020704 CEFDINIR Inactive PREDNISONE 20 MG ORAL TABLET 2 tabs daily for 3 days, 1 tab daily for 3 days, 1/2 tab daily for 2 days PREDNISONE 20 MG ORAL T ABLET 048839 PREDNISONE Inactive AVELOX 400 MG ORAL TABLET [...] days 11/07 PREDNISONE 20 MG ORAL TABLET 523132 PREDNISONE Inactive LEVAQUIN 500 MG ORAL TABLET take one po QD LEVAQUIN 500 MG ORAL TABLET 282485 LEVOFLOXACIN Inactive AZITHROMYCIN 250 MG ORAL TABLET 2 po qd x 1 day, then 1 po q d x 4 days AZITHROMYCIN 250 MG ORAL TABLET 166961 AZITHROMY GIOVANNI Inactive MEDROL 4 MG ORAL TABLET THERAPY PACK 6 tabs on day 1, 5 tabs on day 2, 4 tabs on day 3, 3 tabs on day 4, 2 tabs on day 5, 1 tab on day 6 2013 MEDROL 4 MG ORAL TABLET THERAPY PACK 716667 METHYLPREDNISOLONE Presidio ctive CHERATUSSIN AC 100-10 MG/5ML ORAL SYRUP 5ml po q6hr PRN Cough 20 13/04/14 CHERATUSSIN AC 100-10 MG/5ML ORAL SYRUP 292911 GUAIFENE SIN-CODEINE Inactive TRIAMCINOLONE ACETONIDE 0.1 % EXTERNAL CREAM apply three roger es daily prn rash TRIAMCINOLONE ACETONIDE 0.1 % EXTERNAL CREAM 101 4314 TRIAMCINOLONE ACETONIDE Inactive AZITHROMYCIN 250 MG ORAL TABLET 2 po qd x 1 day, then 1 po q d x 4 days AZITHROMYCIN 250 MG ORAL TABLET 987711 AZITHROMY GIOVANNI Inactive MEDROL 4 MG ORAL TABLET THERAPY PACK 6 pills x 1 day, then 5 pills x 1 day then 4 pills x 1 day, then 3 pills x 1 day, then 2 pills x 1 day, then 1 pill x 1 day, then stop MEDROL 4 MG ORAL TABLET THERAPY PACK 877542 METHYLPREDNISOLONE Inactive AMOXICILLIN 500 MG ORAL CAPSULE 1 tab by mouth 3 times daily x 10 days AMOXICILLIN 500 MG ORAL CAPSULE 224093 AMOXICILL IN Inactive AMOXICILLIN 500 MG ORAL CAPSULE 1 tab by mouth 3 times daily x 10 days AMOXICILLIN 500 MG ORAL CAPSULE 538272 AMOXICILL IN Inactive ZITHROMAX 250 MG ORAL TABLET 2 po today, then 1 po q days 2-5 20 12/08/14 ZITHROMAX 250 MG ORAL TABLET 522601 AZITHROMYCIN Greer ctive AUGMENTIN 875-125 MG ORAL TABLET 1 po BID x 10 days 13/01/20 AUGMENTIN 875-125 MG ORAL TABLET AMOXICILLIN-POT CLAVULANATE Inactive ZITHROMAX Z-REYNA 250 MG ORAL TABLET 2 today, then 1 daily for 4 d ays ZITHROMAX Z-REYNA 250 MG ORAL TABLET 062375 AZITHROMYCIN Inactive ZITHROMAX 250 MG ORAL TABLET 2 po today, then 1 po q days 2-5 20 14/03/21 ZITHROMAX 250 MG ORAL TABLET 100598 AZITHROMYCIN Presidio ctive ZITHROMAX Z-REYNA 250 MG ORAL TABLET 2 today, then 1 daily for 4 d ays ZITHROMAX Z-REYNA 250 MG ORAL TABLET 058903 AZITHROMYCIN Inactive CEFDINIR 300 MG ORAL CAPSULE 1 po BID x 10 days 06/21 CEFDINIR 300 MG ORAL CAPSULE 524504 CEFDINIR Inactive ZITHROMAX 250 MG ORAL TABLET 2 po today, then 1 po q days 2-5 20 13/08/10 ZITHROMAX 250 MG ORAL TABLET 846608 AZITHROMYCIN Presidio ctive LEVAQUIN 500 MG ORAL TABLET 1 tablet by mouth daily 13/09/24 LEVAQUIN 500 MG ORAL TABLET 19971102 LEVOFLOXACIN Inactive SINGULAIR 10 MG ORAL TABLET 1 po qday for allergies 20 14/01/12 SINGULAIR 10 MG ORAL TABLET 20010504 MONTELUKAST SODIUM Inactive AMOXICILLIN 500 MG ORAL CAPSULE 2 po BID x 10 days 201 09/29/08 AMOXICILLIN 500 MG ORAL CAPSULE 556375 AMOXICILLIN Inactive PREDNISONE 20 MG ORAL TABLET 2 tabs daily for 3 days, 1 tab daily for 3 days, 1/2 tab daily for 2 days PREDNISONE 20 MG ORAL T ABLET 554970 PREDNISONE Inactive ZITHROMAX Z-REYNA 250 MG ORAL TABLET 2 today, then 1 daily for 4 d ays ZITHROMAX Z-REYNA 250 MG ORAL TABLET 047545 AZITHROMYCIN Inactive PREDNISONE 20 MG ORAL TABLET 2 tabs daily for 3 days, 1 tab daily for 3 days, 1/2 tab daily for 2 days PREDNISONE 20 MG ORAL T ABLET 541435 PREDNISONE Inactive ZITHROMAX 250 MG ORAL TABLET 2 po today, then 1 po q days 2-5 20 14/09/04 ZITHROMAX 250 MG ORAL TABLET 037999 AZITHROMYCIN Greer ctive AMOXICILLIN 500 MG ORAL CAPSULE 1 cap by mouth three times a day AMOXICILLIN 500 MG ORAL CAPSULE 561927 AMOXICILLIN Inactive TERBINAFINE HCL 250 MG ORAL TABLET 1 qDay for nail fungus 7 TERBINAFINE HCL 250 MG ORAL TABLET 379367 TERBINAFINE HCL Inact nael AUGMENTIN 875-125 MG ORAL TABLET 1 po BID x 10 days 16/03/22 AUGMENTIN 875-125 MG ORAL TABLET AMOXICILLIN-POT CLAVULANATE Inactive PREDNISONE 20 MG ORAL TABLET 2 po qd x 5 days PREDNISONE 20 MG ORAL TABLET 753670 PREDNISONE Inactive AZITHROMYCIN 250 MG ORAL TABLET 2 po qd x 1 day, then 1 po q d x 4 days AZITHROMYCIN 250 MG ORAL TABLET 431777 AZITHROMY GIOVANNI Inactive PREDNISONE 50 MG ORAL TABLET Take 50 mg dialy for 6 day s 7 PREDNISONE 50 MG ORAL TABLET 452655 PREDNISONE Inactive AUGMENTIN 875-125 MG ORAL TABLET 1 po BID x 10 days 18/04/16 AUGMENTIN 875-125 MG ORAL TABLET AMOXICILLIN-POT CLAVULANATE Inactive DOXYCYCLINE HYCLATE 100 MG ORAL CAPSULE 1 cap by mouth twice latasha ly DOXYCYCLINE HYCLATE 100 MG ORAL CAPSULE 7136942 DOXYCYCL INE HYCLATE Inactive PREDNISONE 20 MG ORAL TABLET Take 2 tabs day 1 and 2 and 1 t ab days 3 and 4 PREDNISONE 20 MG ORAL TABLET 970516 PREDNISONE Inactive AMOXICILLIN 500 MG ORAL CAPSULE 1 cap by mouth twice daily 10/21 AMOXICILLIN 500 MG ORAL CAPSULE 072170 AMOXICILLIN Inactive TRIAMCINOLONE ACETONIDE 0.1 % EXTERNAL OINTMENT Apply to affected areas TID PRN Rash/Itching for up 2 weeks TRIAMCINOLON E ACETONIDE 0.1 % EXTERNAL OINTMENT 8306738 TRIAMCINOLONE ACETONIDE Inactive ACYCLOVIR 800 MG ORAL TABLET 1 po 5 times daily x 7 days ACYCLOVIR 800 MG ORAL TABLET 379478 ACYCLOVIR Inactive Vital Signs Date Name Value [...] weight E&M 139.31 [lb_av] Weight Measure d Diagnostic Results Date Name Value Unit Range Description Lab Report: Comp. Metabolic Panel, CBC, Lipid Panel - Chemistry sodium, serum 137 mmol/L 311-063 7483/10/08 carbon dioxide, venous blood 29.9 mmol/L 21.0-32 [...] 0.50 mg/dL 0.00-1.00 cholesterol, serum 324 mg/dL 569-307 3142/10/08 triglyceride, serum, fasting 130 mg/dL 30-200 HDL [...] negative Encounters Code Encounter Date Provider Facility CPT-[id number] Vst-Est Level IV 09:06:31 C ESAU Hu MD [facility] CPT-03859 Level 3 Est. Patient 14:16:41 CDT David lion [facility] CPT-28003 Level 3 Est. Patient 13:57:55 CDT Davidjerel lion [facility] CPT-36316 Level 3 Est. Patient 16:08:07 CDT David lion [facility] CPT-19498 Level 3 Est. Patient 16:53:54 CDT May haas MD [facility]-77868 [id number] Vst-Est Level IV 08:41:[address] Carlton Hu MD [facility] CPT-00061 Level 3 Est. Patient 09:46:49 DOWN FILLER David Antonino dle [facility]-43309 [id number] Vst-Est Level III 11:12:16 CDT Br uce Jaun Bess DO [facility] CPT-40584 Level 3 Est. Patient 11:34:49 DOWN FILLER Perez Mora MD [facility] CPT-51985 Level 4 Est. Patient 09:51:32 DOWN FILLER Carlton rich MD [facility] CPT-48716 Level 3 Est. Patient 10:26:00 DOWN FILLER Elise stephenson [facility] CPT-02644 Level 3 Est. Patient 13:35:41 DOWN FILLER Carlton rich MD [facility] CPT-43996 Level 3 Est. Patient 10:03:52 DOWN FILLER Carlton rich MD [facility] CPT-19164 Level 3 Est. Patient 12:17:50 CDT Hugo Restrepo MD [facility] CPT-26401 Level 3 Est. Patient 13:42:38 CDT Elise stephenson [facility] CPT-23624 Level 3 Est. Patient 13:23:51 CDT Diya cobian [facility] CPT-76785 Level 3 Est. Patient 14:22:19 DOWN FILLER Diya cobian [facility] CPT-38770 Level 3 Est. Patient 10:11:46 CDT Carlton rich MD [facility] CPT-33154 Level 3 Est. Patient 17:29:43 CDT Elise Hitchcock [facility] CPT-97480 Level 3 Est. Patient 11:58:06 CDT Elise stephenson [facility] CPT-47532 Level 4 Est. Patient 14:36:51 CDT Carlton rich MD [facility]-71671 Level 3 Est. Patient 18:16:00 DOWN FILLER Blaine Freeman [facility] CPT-25062 Level 3 Est. Patient 09:45:49 DOWN FILLER Carlton rich MD [facility] CPT-96781 Level 3 Est. Patient 13:19:20 CDT Carlton rich MD [facility]-51004 Level 3 Est. Patient 13:06:43 CDT Ridge tam DO [facility] CPT-61534 Level 3 Est. Patient 10:03:07 CDT Perez Mora MD [facility] CPT-63308 Level 3 Est. Patient 19:50:35 DOWN FILLER Carlton rich MD [facility] CPT-72368 Level 4 Est. Patient 18:05:01 DOWN FILLER Carlton rich MD [facility] CPT-46137 Level 3 Est. Patient 10:45:55 DOWN FILLER Hugo Restrepo MD [facility] CPT-53963 Level 3 Est. Patient 14:12:49 CDT Griffin lincoln [facility] CPT-57819 Level 3 Est. Patient 17:37:24 CDT Carlton rich MD [facility]-61522 Level 3 Est. Patient 16:51:54 CDT Carlton rich MD [facility]-87034 Level 3 Est. Patient 12:18:11 CDT Hugo Restrepo MD [facility]-42774 Level 3 Est. Patient 11:30:25 CDT Marcy crisostomo MD PhD [facility] CPT-73364 Level 3 Est. Patient 12:00:47 DOWN FILLER Carlton rich MD [facility] CPT-96968 Level 3 Est. Patient 16:31:06 DOWN FILLER Carlton rich MD [facility] CPT-62590 Level 3 Est. Patient 16:23:24 DOWN FILLER Ridge tam [facility] CPT-47352 Level 3 Est. Patient 12:34:12 CDT Carlton rich MD [facility] CPT-51091 Level 2 Est. Patient 15:43:33 CDT Robi armstrong MD [facility] CPT-77898 Level 4 Est. Patient 14:04:44 CDT Carlton rich MD [facility] CPT-63306 Level 3 Est. Patient 05:47:59 CDT Ridge tam [facility] CPT-58772 Level 3 Est. Patient 13:12:53 DOWN FILLER Carlton rich MD [facility] CPT-14316 Level 3 Est. Patient 14:26:53 CDT Hugo Restrepo MD [facility] Procedures Code Procedure Name Date Entry Date Standard Desc ription CPT-17871 Venipuncture Draw Fee 15:53:34 CDT CPT-000 Give Appropriate Flu Vaccine 14:14:31 CDT CPT-J1040 Depo Medrol 80 mg (Methyl Prednisolone A cetate) 10:42:44 CDT CPT-J1100 Decadron 8mg (Dexamethasone) 10:42:44 CDT 2 CPT-J0696 Rocephin 1gm Inj Solr 14:32:13 CDT CPT-J1020 Depo Medrol 60 mg (Methyl Prednisolone A cetate) 14:32:13 CDT CPT-J1100 Decadron 6mg (Dexamethasone) 14:32:13 CDT 2 CPT-24587 Hip bilat min 2V w AP pelvis 13:16:20 CDT 2 CPT-50810 Pelvis only 13:07:33 CDT CPT-88494 Spec Collection and Handling Fee 11:25:12 C DT CPT-91536 Fluzone Quadrivalent Intramuscular Suspe nsion 0.5 ML 14:31:55 CDT CPT-30981 Abx/Therapy Injection 13:28:47 DOWN FILLER CPT-J2930 Solu Medrol 125 mg (Methyl Prednisolone Sodium Succinate) 12:00:47 DOWN FILLER CPT-67417 Venipuncture Draw Fee 11:33:31 CDT CPT-13469 EKG Trac and Interp 11:21:09 CDT CPT-19266 Chest 2V Frontal and Lat 11:21:09 CDT 12/15 CPT-73334 Venipuncture Draw Fee 08:02:34 CDT CPT-87427 Chest 2V Frontal and Lat 05:47:59 CDT 06/05
--- OUTSIDE RECORDS SUMMARY | 2019-10-08 09:54 | XMS REPORT | Clinical Summary ---
[...] Shortness of breath FIBROMYALGIA 729.1 Active Carlton uH MD Myalgia and myositis, unspecified DIVERTICULOSIS, COLON [...] 35.0-35.9, adult BMI 35-35.9 Refinement David Marianne [employer]IST Body Mass Index 35.0-35.9, adult BMI 33-33.9 Active David Marianne [employer] SPECIALIST Body Mass Index 35.0-35.9, adult Upper respiratory [...] Acute pharyngitis Shingles 053.9 Active David Marianne [employer]IST Herpes zoster without mention of complication Allergic [...] TABLET BY MOUTH ONCE DAILY NEEDED ALPRAZOLAM 71371743139 Active Carlton Hu MD Active TOPIRAMATE 100 MG TABS TAKE 1 TABLET BY MOUTH TWICE DAILY 1 TOPIRAMATE 63127801926 Active Carlton Hu MD Active ATORVASTATIN CALCIUM 10 MG ORAL TABLET 1 pill by mouth night ly, for cholesterol ATORVASTATIN CALCIUM 13077611548 Active Columba Parrish Active TRIAMCINOLONE ACETONIDE 0.1 % EXTERNAL CREAM apply bid spari ngly to rash TRIAMCINOLONE ACETONIDE 33597556989 No Longer Active Carlton Hu MD Active TYLENOL WITH CODEINE #3 300-30 MG ORAL TABLET ACETAMINOPHEN-CODEINE 84026668474 No Longer Active Carlton Hu MD Active TYLENOL WITH CODEINE #3 300-30 MG ORAL TABLET 1-2 po q6hr PRN Pa in ACETAMINOPHEN-CODEINE 48555866620 No Longer Active David HERNANDEZ RN Active ACYCLOVIR 800 MG ORAL TABLET 1 po 5 times daily x 7 days ACYCLOVIR 59976442777 No Longer Active David Marianne [employer] SPECIALIST Active TOPAMAX 100 MG ORAL TABLET 1 by mouth twice daily TOPIRAMATE 77891690386 Active Carlton Hu MD Active TRIAMCINOLONE ACETONIDE 0.1 % EXTERNAL OINTMENT Apply to affected areas TID PRN Rash/Itching for up 2 weeks TRIAMCINOLONE ACETON KAYLA 61353940778 No Longer Active David Marianne [employer] SPECIALIST Active AMOXICILLIN 500 MG ORAL CAPSULE 1 cap by mouth twice daily 10/21 AMOXICILLIN 49552549264 No Longer Active David Marianne [employer] SPECIALIST Active ELMIRON 100 MG ORAL CAPSULE 2 capsules in the morning and 1 capsule at night PENTOSAN POLYSULFATE SODIUM 54214939723 Active Cinthia H art MAIL COURIER Active CYMBALTA 30 MG ORAL CAPSULE DELAYED RELEASE PARTICLES 1 cap by mouth daily for depression DULOXETINE HCL 10287999603 No Longer Active Carlton Hu MD Active CYMBALTA 60 MG ORAL CAPSULE DELAYED RELEASE PARTICLES 1 cap by mouth daily for mood and pain DULOXETINE HCL 42286178782 Active Carlton Hu MD Active TUSSIONEX PENNKINETIC ER 10-8 MG/5ML ORAL SUSPENSION E XTENDED RELEASE 5ml po q12hr PRN Cough HYDROCOD POLST-CHLORPHEN POLST 82368621212 Active Carlton Hu MD Active PREDNISONE 20 MG ORAL TABLET Take 2 tabs day 1 and 2 and 1 t ab days 3 and 4 PREDNISONE 56921988425 No Longer Active David Marianne [employer] SPECIALIST Active DOXYCYCLINE HYCLATE 100 MG ORAL CAPSULE 1 cap by mouth twice latasha ly DOXYCYCLINE HYCLATE 69835294514 No Longer Active David Marianne [employer]NER[employer] SPECIALIST Active TOPAMAX 100 MG ORAL TABLET Take 1 tablet po bid TOPIRAMATE 65425699663 No Longer Active David Marianne [employer]NERSHIP SPECIALIST Active TUSSIONEX PENNKINETIC ER 10-8 MG/5ML ORAL SUSPENSION E XTENDED RELEASE 5ml po q12hr PRN Cough HYDROCOD POLST-CHLORPHEN POLST 5 7125343731 No Longer Active David Lopes [employer] SPECIALIST Active AUGMENTIN 875-125 MG ORAL TABLET 1 po BID x 10 days 20 18/04/16 AMOXICILLIN-POT CLAVULANATE 18324572454 No Longer Active David Marianne [employer] SPECIALIST Active PREDNISONE 50 MG ORAL TABLET Take 50 mg dialy for 6 day s 7 PREDNISONE 31428839151 No Longer Active David Marianne [employer]NERSH[employer] SPECIALIST Active TUSSIONEX PENNKINETIC ER 10-8 MG/5ML ORAL SUSPENSION E XTENDED RELEASE 5ml po q12hr PRN Cough HYDROCOD POLST-CHLORPHEN POLST 5 2352709821 No Longer Active Cherelle Torres RN Active PREDNISONE 20 MG ORAL TABLET two tabs by mouth today, then one tab by mouth days two and three and four PREDNISONE 89787385931 No Lo nger Active Cherelle Torres RN Active AZITHROMYCIN 250 MG ORAL TABLET 2 po qd x 1 day, then 1 po q d x 4 days AZITHROMYCIN 89909773043 No Longer Active Ridge Bess DO Active PREDNISONE 20 MG ORAL TABLET 2 po qd x 5 days P REDNISONE 49301415228 No Longer Active Perez Mora MD Active PROAIR HFA 108 (90 BASE) MCG/ACT INHALATION AEROSOL SO LUTION 2 puffs four times a day as needed ALBUTEROL SULFATE 71132886417 No Long er Active Becky FUENTES Active ASPIRIN 81 MG ORAL TABLET 1 po qd ASPIRIN 83521294641 Active Carlton Hu MD Active PREDNISONE 20 MG ORAL TABLET 1 tab twice daily for 3 d ay, then one daily for three days PREDNISONE 14228495057 No Longer Active Carlton Hu MD Active AUGMENTIN 875-125 MG ORAL TABLET 1 po BID x 10 days 20 16/03/22 AMOXICILLIN-POT CLAVULANATE 45631638227 No Longer Active Elise Garcia APRN Active TERBINAFINE HCL 250 MG ORAL TABLET 1 qDay for nail fungus 7 TERBINAFINE HCL 42770968294 No Longer Active Carlton Hu MD A ctive AMOXICILLIN 500 MG ORAL CAPSULE 1 cap by mouth three times a day AMOXICILLIN 14087364134 No Longer Active Carlton Hu MD Active ELMIRON 100 MG ORAL CAPSULE 2 tablets in the am and 1 tablet at hs PENTOSAN POLYSULFATE SODIUM 09233984175 No Longer Active Robert jade Hu MD Active MUCINEX D 60-600 MG ORAL TABLET EXTENDED RELEASE 12 HOUR 1 t ab po q am PSEUDOEPHEDRINE-GUAIFENESIN 62621818306 No Longer Act nael Carlton Hu MD Active MUCINEX DM MAXIMUM STRENGTH 60-1200 MG ORAL TABLET EXT ENDED RELEASE 12 HOUR 1 tab po q am DEXTROMETHORPHAN-GUAIFENESIN 48825488190 No Longer Active Carlton Hu MD Active TUSSIONEX PENNKINETIC ER 10-8 MG/5ML ORAL SUSPENSION E XTENDED RELEASE 5ml po q12hr PRN Cough HYDROCOD POLST-CHLORPHEN POLST 5 1976711997 No Longer Active Carlton Hu MD Active POTASSIUM CHLORIDE ER 20 MEQ ORAL TABLET EXTENDED RELE ASE Take 1 by mouth 4 times daily for 7 days POTASSIUM CHLORIDE 96728476979 No Longer Active Carlton Hu MD Active ZITHROMAX 250 MG ORAL TABLET 2 po today, then 1 po q days 2-5 20 14/09/04 AZITHROMYCIN 65208911068 No Longer Active Elise Garcia APRN Active TUSSIONEX PENNKINETIC ER 10-8 MG/5ML ORAL SUSPENSION E XTENDED RELEASE 5 ml twice a day as needed for cough HYDROCOD POLST-CHLORPH EN POLST 22362298732 No Longer Active Elise Garcia APRN Active MONTELUKAST SODIUM 10 MG ORAL TABLET 1 po daily for Allergy MONTELUKAST SODIUM 73485220440 Active Carlton Hu MD Ac tive TUSSIONEX PENNKINETIC ER 10-8 MG/5ML ORAL SUSPENSION E XTENDED RELEASE 5ml po q12hr PRN Cough HYDROCOD POLST-CHLORPHEN POLST 5 6535647934 No Longer Active Hugo Restrepo MD Active GABAPENTIN 100 MG ORAL CAPSULE 1 po BID for fibromyalgia GABAPENTIN 39344871371 Active ALFREDO Holly Active LYRICA 100 MG ORAL CAPSULE Take 1 tab po BID for fibromyalgia 20 11/08/21 PREGABALIN 71932956860 No Longer Active Elise Garcia [employer] SPECIALIST A ctive PREDNISONE 20 MG ORAL TABLET 2 tabs daily for 3 days, 1 tab daily for 3 days, 1/2 tab daily for 2 days PREDNISONE 83013854447 No Longer Active Jillina Frazell [employer] SPECIALIST Active TUSSIONEX PENNKINETIC ER 10-8 MG/5ML ORAL SUSPENSION E XTENDED RELEASE 5 mL PO q 12 hrs PRN cough HYDROCOD POLST-CHLORPHEN POLST 967388 58718 No Longer Active Jillina Frazell [employer]NER[employer] SPECIALIST Active FLUTICASONE PROPIONATE 50 MCG/ACT NASAL SUSPENSION 2 s prays each nostril daily until bottle is empty FLUTICASONE PROPIONATE 345988568 99 No Longer Active Jillina Frazell [employer]NER[employer] SPECIALIST Active ASMANEX 60 METERED DOSES 220 MCG/INH INHALATION AEROSO L POWDER BREATH ACTIVATED 1 puff bid with rinse after MOMETASONE FUROATE 1900244 4102 No Longer Active Jillina Frazell [employer]NER[employer] SPECIALIST Active ZITHROMAX Z-REYNA 250 MG ORAL TABLET 2 today, then 1 daily for 4 d ays AZITHROMYCIN 80530866967 No Longer Active Elise Garcia [employer]NERSHIP SPECIALIST Active TUSSIONEX PENNKINETIC ER 10-8 MG/5ML ORAL SUSPENSION E XTENDED RELEASE 5ml po q12hr PRN Cough HYDROCOD POLST-CHLORPHEN POLST 5 6579981840 No Longer Active Elise Garcia [employer]NERSHIP SPECIALIST Active PREDNISONE 20 MG ORAL TABLET 2 tabs daily for 3 days, 1 tab daily for 3 days, 1/2 tab daily for 2 days PREDNISONE 98842477817 No Longer Active Diya De Guzman APRN Active AMOXICILLIN 500 MG ORAL CAPSULE 2 po BID x 10 days 201 09/29/08 AMOXICILLIN 72067277185 No Longer Active Diya Guerrerol [employer]NER[employer] SPECIALIST Act nael SINGULAIR 10 MG ORAL TABLET 1 po qday for allergies 20 14/01/12 MONTELUKAST SODIUM 76452920726 No Longer Active Carlton Hu MD Active LEVAQUIN 500 MG ORAL TABLET 1 tablet by mouth daily 13/09/24 LEVOFLOXACIN 98661511997 No Longer Active Carlton uH MD Acti ve FLUTICASONE PROPIONATE 50 MCG/ACT NASAL SUSPENSION 2 s prays each nostril daily for 2 weeks, then 1 spray each nostril daily. FLUTICASONE PROPIONATE 77111181710 Active Carlton Hu MD Active ZITHROMAX 250 MG ORAL TABLET 2 po today, then 1 po q days 2-5 20 13/08/10 AZITHROMYCIN 77458909233 No Longer Active Elise Garcia APRN Active CEFDINIR 300 MG ORAL CAPSULE 1 po BID x 10 days CEFDINIR 99704667998 No Longer Active Carlton Hu MD Active ZOCOR 40 MG ORAL TABLET 1 tab by mouth daily SI MVASTATIN 50039986130 No Longer Active Carlton Hu MD Active CYCLOBENZAPRINE HCL 10 MG ORAL TABLET 1 tablet by mouth BID prn had pain CYCLOBENZAPRINE HCL 90020817744 No Longer Active Jayden Hu MD Active LEVOFLOXACIN 500 MG ORAL TABLET 1 tab PO daily x 10 days LEVOFLOXACIN 96952345268 No Longer Active Carlton Hu MD Acti ve PREDNISONE 20 MG ORAL TABLET 3 tab PO qd x 2d, 2 tab P O qd x 2d, 1 tab PO qd x 2d, 1/2 tab PO qd x 2d PREDNISONE 23628094305 No Lo nger Active Carlton Hu MD Active FLUTICASONE PROPIONATE 50 MCG/ACT NASAL SUSPENSION 1 t o 2 sprays each nostril daily FLUTICASONE PROPIONATE 73625866337 No Longer Ac tive Blaine HERNANDEZ Active CHERATUSSIN AC 100-10 MG/5ML ORAL SYRUP 1 tsp by mouth every 4 hours as needed for cough GUAIFENESIN-CODEINE 88655700087 No Longe r Active Blaine HERNANDEZ Active PROMETHAZINE-CODEINE 6.25-10 MG/5ML ORAL SYRUP 1 tsp b y mouth every 6 hours if needed for cough PROMETHAZINE-CODEINE 91262369671 No Longer Active Blaine HERNANDEZ Active CHERATUSSIN AC 100-10 MG/5ML ORAL SYRUP 1 tsp by mouth every 4 hours as needed for cough GUAIFENESIN-CODEINE 41721119772 No Longe r Active Blaine HERNANDEZ Active ZITHROMAX Z-REYNA 250 MG ORAL TABLET 2 today, then 1 daily for 4 d ays AZITHROMYCIN 67013673474 No Longer Active Columba Raida Act nael ZITHROMAX 250 MG ORAL TABLET 2 po today, then 1 po q days 2-5 20 14/03/21 AZITHROMYCIN 75965416370 No Longer Active Carlton Hu MD Active ZITHROMAX Z-REYNA 250 MG ORAL TABLET 2 today, then 1 daily for 4 d ays AZITHROMYCIN 12109071884 No Longer Active Columba Raida Act nael AUGMENTIN 875-125 MG ORAL TABLET 1 po BID x 10 days 13/01/20 AMOXICILLIN-POT CLAVULANATE 03367971031 No Longer Active Diya De Guzman APRN Active ZITHROMAX 250 MG ORAL TABLET 2 po today, then 1 po q days 2-5 20 12/08/14 AZITHROMYCIN 83168146821 No Longer Active Carlton Hu MD Active TRAMADOL HCL 50 MG ORAL TABLET 1 po tid with ES Tylenol TRAMADOL HCL 80162764098 Active ALFREDO Holly Active PREMARIN 0.625 MG ORAL TABLET TAKE 1 TAB BY MOUTH DAILY ESTROGENS CONJUGATED 79785172355 No Longer Active Ridge Bess DO A ctive CYMBALTA 30 MG ORAL CAPSULE DELAYED RELEASE PARTICLES 1 cap by mouth daily DULOXETINE HCL 61182319048 No Longer Active Ridge tam DO Active AMOXICILLIN 500 MG ORAL CAPSULE 1 tab by mouth 3 times daily x 10 days AMOXICILLIN 21458699935 No Longer Active Carlton bustamante MD Active AMOXICILLIN 500 MG ORAL CAPSULE 1 tab by mouth 3 times daily x 10 days AMOXICILLIN 99229771170 No Longer Active Carlton bustamante MD Active PROMETHAZINE-CODEINE 6.25-10 MG/5ML ORAL SYRUP 1 tsp b y mouth every 8 hours prn cough PROMETHAZINE-CODEINE 47424967409 No Longer Acti ve Carlton Hu MD Active MEDROL 4 MG ORAL TABLET THERAPY PACK 6 pills x 1 day, then 5 pills x 1 day then 4 pills x 1 day, then 3 pills x 1 day, then 2 pills x 1 day, then 1 pill x 1 day, then stop METHYLPREDNISOLONE 64343948057 No Long er Active Perez Mora MD Active AZITHROMYCIN 250 MG ORAL TABLET 2 po qd x 1 day, then 1 po q d x 4 days AZITHROMYCIN 59249891515 No Longer Active Perez Ambriz MD Active SYMBICORT 160-4.5 MCG/ACT INHALATION AEROSOL 2 puffs bid wit h rinse after BUDESONIDE-FORMOTEROL FUMARATE 58427358013 N o Longer Active Perez Mora MD Active LYRICA 75 MG ORAL CAPSULE TAKE 1 CAPSULE BY MOUTH TWICE DAILY PREGABALIN 70103787610 No Longer Active Carlton Hu MD Acti ve TOPAMAX 25 MG ORAL TABLET 1 qHS x 1 week, then 1 BID x 1 week, then 1 qAM and 2 qHS x 1 week, then 2 BID (migraine prevention) T OPIRAMATE 69391364935 No Longer Active Jerica FUENTES Active TOPAMAX 50 MG ORAL TABLET take 1 tab po BID for migraines. 07/02 TOPIRAMATE 11811742196 No Longer Active Jerica Osei RMA Active TRIAMCINOLONE ACETONIDE 0.1 % EXTERNAL CREAM apply three roger es daily prn rash TRIAMCINOLONE ACETONIDE 37985403624 No Longer Active Carlton Hu MD Active PAXIL 40 MG ORAL TABLET take 1 tab po qday for depression 0 PAROXETINE HCL 57902328159 Active Carlton Hu MD Active CHERATUSSIN AC 100-10 MG/5ML ORAL SYRUP 5ml po q6hr PRN Cough 20 13/04/14 GUAIFENESIN-CODEINE 49123997190 No Longer Active Carlton Hu MD Active MEDROL 4 MG ORAL TABLET THERAPY PACK 6 tabs on day 1, 5 tabs on day 2, 4 tabs on day 3, 3 tabs on day 4, 2 tabs on day 5, 1 tab on day 6 2013 METHYLPREDNISOLONE 68312813397 No Longer Active Perez Mora MD Active AZITHROMYCIN 250 MG ORAL TABLET 2 po qd x 1 day, then 1 po q d x 4 days AZITHROMYCIN 62321056349 No Longer Active Perez Ambriz MD Active PROPRANOLOL HCL 60 MG ORAL TABLET 1 PO Q D PROPRANOLOL HCL 23953092452 No Longer Active Perez Mora MD Activ e CHERATUSSIN AC 100-10 MG/5ML ORAL SYRUP take one tsp po Q 6h ours prn cough GUAIFENESIN-CODEINE 76314332460 No Longer Active Zia Mora MD Active AUGMENTIN 875-125 MG ORAL TABLET 1 tab by mouth twice daily with food AMOXICILLIN-POT CLAVULANATE 22472804788 No Longer Act nael Perez Mora MD Active CHERATUSSIN AC 100-10 MG/5ML ORAL SYRUP 1 tsp by mouth every 4 hours as needed for cough GUAIFENESIN-CODEINE 24792122694 No Longe r Active Hugo Restrepo MD Active ACETAMINOPHEN-CODEINE #3 300-30 MG ORAL TABLET 1 PO Q 4-6 HRS [place] N PAIN ACETAMINOPHEN-CODEINE 61649709035 No Longer Active Hugo Restrepo MD Active LEVAQUIN 500 MG ORAL TABLET take one po QD LEVO FLOXACIN 18507159823 No Longer Active Griffin HERNANDEZ Active PREDNISONE 20 MG ORAL TABLET Take 3 tabs daily for 3 d ays, 2 tabs daily for 3 days, 1 tab daily for 3 days, 1/2 tab daily for 3 days 11/07 PREDNISONE 90836330446 No Longer Active Carlton Hu MD Acti ve AVELOX 400 MG ORAL TABLET 1 tab by mouth daily MOXIFLOXACIN HCL 76886530803 No Longer Active Carlton Hu MD Active CHERATUSSIN AC 100-10 MG/5ML ORAL SYRUP 1 tsp by mouth every 4 hours as needed for cough GUAIFENESIN-CODEINE 02321760845 No Longe r Active Hugo Restrepo MD Active AVELOX 400 MG ORAL TABLET 1 tab by mouth daily MOXIFLOXACIN HCL 02905417080 No Longer Active Marcy De La Rosa MD PhD Active TERBINAFINE HCL 250 MG ORAL TABLET 1 qDay T ERBINAFINE HCL 69494763966 No Longer Active Marcy De La Rosa MD PhD Active CHERATUSSIN AC 100-10 MG/5ML ORAL SYRUP 1 tsp by mouth every 4 hours as needed for cough GUAIFENESIN-CODEINE 73589500239 No Longe r Active Marcy De La Rosa MD PhD Active AVELOX 400 MG ORAL TABLET 1 tab by mouth daily MOXIFLOXACIN HCL 62474407974 No Longer Active Marcy De La Rosa MD PhD Active HYDROCODONE-ACETAMINOPHEN 5-325 MG ORAL TABLET 1 po q 6hr PRN co ugh HYDROCODONE-ACETAMINOPHEN 68933178100 No Longer Active Marcy De La Rosa MD PhD Active PREDNISONE 20 MG ORAL TABLET 2 tabs daily for 3 days, 1 tab daily for 3 days, 1/2 tab daily for 2 days PREDNISONE 74276761806 No Longer Active Carlton Hu MD Active CEFDINIR 300 MG ORAL CAPSULE by mouth twice a day 2011 CEFDINIR 05770823383 No Longer Active Carlton Hu MD Acti ve HYDROCHLOROTHIAZIDE 25 MG ORAL TABLET 1 TAB PO DAILY HYDROCHLOROTHIAZIDE 50194459456 Active Carlton Hu MD A ctive ACETAMINOPHEN-CODEINE #3 300-30 MG ORAL TABLET 1 tablet po q 4-6 hrs prn pain ACETAMINOPHEN-CODEINE 62279440817 No Longer Active Ridge Bess DO Active ZITHROMAX 250 MG ORAL TABLET 2 po today, then 1 po q days 2-5 20 03/07/07 AZITHROMYCIN 79656166922 No Longer Active Carlton Hu MD Active CHERATUSSIN AC 100-10 MG/5ML ORAL SYRUP take 1 tsp po q4-6 h ours prn cough GUAIFENESIN-CODEINE 33303892802 No Longer Active Jayden Hu MD Active ACETAMINOPHEN-CODEINE #3 300-30 MG ORAL TABLET 1 PO Q 4-6 HR PRN PAIN ACETAMINOPHEN-CODEINE 41398148064 No Longer Active Da raimundo Hu MD Active LORTAB 7.5-500 MG/15ML ORAL ELIXIR 7.5 ml po q 4 hour prn cough HYDROCODONE-ACETAMINOPHEN 69074244120 No Longer Active Carlton Hu MD Active PREDNISONE 20 MG ORAL TABLET 1 po bid 3 days, then 1 po q day 3 days PREDNISONE 23560267227 No Longer Active Carlton Hu MD Active CEFDINIR 300 MG ORAL CAPSULE by mouth twice a day 2011 CEFDINIR 55238979347 No Longer Active Carlton Hu MD Acti ve CEFDINIR 300 MG ORAL CAPSULE by mouth twice a day 2010 CEFDINIR 79697175412 No Longer Active Carlton Hu MD Acti ve CEFDINIR 300 MG ORAL CAPSULE by mouth twice a day 2010 CEFDINIR 10256786492 No Longer Active Carlton Hu MD Acti ve TESSALON PERLES 100 MG ORAL CAPSULE 1 tablet by mouth 3 times daily as needed for cough BENZONATATE 18560988885 No Longer Active Carlton Hu MD Active CEFDINIR 300 MG ORAL CAPSULE by mouth twice a day 2010 CEFDINIR 40419715552 No Longer Active Carlton Hu MD Acti ve ZITHROMAX Z-REYNA 250 MG ORAL TABLET 2 today, then 1 daily for 4 d ays AZITHROMYCIN 33308485368 No Longer Active Hugo Restrepo MD Active TESSALON PERLES 100 MG ORAL CAPSULE 1 tablet by mouth 3 times daily as needed for cough TESSALON PERLES 100 MG ORAL CAPSULE 61155 7 BENZONATATE Inactive PREDNISONE 20 MG ORAL TABLET 1 po bid 3 days, then 1 po q day 3 days PREDNISONE 20 MG ORAL TABLET 752081 PREDNISONE Greer ctive LORTAB 7.5-500 MG/15ML ORAL ELIXIR 7.5 ml po q 4 hour prn cough LORTAB 7.5-500 MG/15ML ORAL ELIXIR HYDROCODONE-A CETAMINOPHEN Inactive ACETAMINOPHEN-CODEINE #3 300-30 MG ORAL TABLET 1 PO Q 4-6 HR PRN PAIN ACETAMINOPHEN-CODEINE #3 300-30 MG ORAL TABLET 9 09503 ACETAMINOPHEN-CODEINE Inactive CHERATUSSIN AC 100-10 MG/5ML ORAL SYRUP take 1 tsp po q4-6 h ours prn cough CHERATUSSIN AC 100-10 MG/5ML ORAL SYRUP 852194 GUAIFENESIN-CODEINE Inactive ACETAMINOPHEN-CODEINE #3 300-30 MG ORAL TABLET 1 tablet po q 4-6 hrs prn pain ACETAMINOPHEN-CODEINE #3 300-30 MG ORAL TABLET 470944 ACETAMINOPHEN-CODEINE Inactive HYDROCODONE-ACETAMINOPHEN 5-325 MG ORAL TABLET 1 po q 6hr PRN co ugh HYDROCODONE-ACETAMINOPHEN 5-325 MG ORAL TABLET 170431 HYDROCODONE-ACETAMINOPHEN Inactive AVELOX 400 MG ORAL TABLET 1 tab by mouth daily AVELOX 400 MG ORAL TABLET MOXIFLOXACIN HCL Inactive CHERATUSSIN AC 100-10 MG/5ML ORAL SYRUP 1 tsp by mouth every 4 hours as needed for cough CHERATUSSIN AC 100-10 MG/5ML ORAL SYRUP 9 14522 GUAIFENESIN-CODEINE Inactive TERBINAFINE HCL 250 MG ORAL TABLET 1 qDay 07/08 TERBINAFINE HCL 250 MG ORAL TABLET 278759 TERBINAFINE HCL Inactive CHERATUSSIN AC 100-10 MG/5ML ORAL SYRUP 1 tsp by mouth every 4 hours as needed for cough CHERATUSSIN AC 100-10 MG/5ML ORAL SYRUP 9 73218 GUAIFENESIN-CODEINE Inactive ACETAMINOPHEN-CODEINE #3 300-30 MG ORAL TABLET 1 PO Q 4-6 HRS [place] PAIN ACETAMINOPHEN-CODEINE #3 300-30 MG ORAL TABLET 030997 ACETAMINOPHEN-CODEINE Inactive CHERATUSSIN AC 100-10 MG/5ML ORAL SYRUP 1 tsp by mouth every 4 hours as needed for cough CHERATUSSIN AC 100-10 MG/5ML ORAL SYRUP 9 10979 GUAIFENESIN-CODEINE Inactive AUGMENTIN 875-125 MG ORAL TABLET 1 tab by mouth twice daily with food AUGMENTIN 875-125 MG ORAL TABLET AMOXICIL MADELINE-POT CLAVULANATE Inactive CHERATUSSIN AC 100-10 MG/5ML ORAL SYRUP take one tsp po Q 6h ours prn cough CHERATUSSIN AC 100-10 MG/5ML ORAL SYRUP 379523 GUAIFENESIN-CODEINE Inactive PROPRANOLOL HCL 60 MG ORAL TABLET 1 PO Q D PROPRANOLOL HCL 60 MG ORAL TABLET 770094 PROPRANOLOL HCL Inactive TOPAMAX 50 MG ORAL TABLET take 1 tab po BID for migraines. 07/02 TOPAMAX 50 MG ORAL TABLET 680906 TOPIRAMATE Inacti ve TOPAMAX 25 MG ORAL TABLET 1 qHS x 1 week, then 1 BID x 1 week, then 1 qAM and 2 qHS x 1 week, then 2 BID (migraine prevention) TOPAMAX 25 MG ORAL TABLET 408839 TOPIRAMATE Inactive LYRICA 75 MG ORAL CAPSULE TAKE 1 CAPSULE BY MOUTH TWICE DAILY LYRICA 75 MG ORAL CAPSULE 792089 PREGABALIN Inactive SYMBICORT 160-4.5 MCG/ACT INHALATION AEROSOL 2 puffs bid wit h rinse after SYMBICORT 160-4.5 MCG/ACT INHALATION AEROSOL BUDESONIDE- FORMOTEROL FUMARATE Inactive PROMETHAZINE-CODEINE 6.25-10 MG/5ML ORAL SYRUP 1 tsp b y mouth every 8 hours prn cough PROMETHAZINE-CODEINE 6.25-10 MG/ 5ML ORAL SYRUP 858532 PROMETHAZINE-CODEINE Inactive CYMBALTA 30 MG ORAL CAPSULE DELAYED RELEASE PARTICLES 1 cap by mouth daily CYMBALTA 30 MG ORAL CAPSULE DELAYED RELE ASE PARTICLES 712421 DULOXETINE HCL Inactive PREMARIN 0.625 MG ORAL TABLET TAKE 1 TAB BY MOUTH DAILY PREMARIN 0.625 MG ORAL TABLET ESTROGENS CONJUGATED Inactive CHERATUSSIN AC 100-10 MG/5ML ORAL SYRUP 1 tsp by mouth every 4 hours as needed for cough CHERATUSSIN AC 100-10 MG/5ML ORAL SYRUP 9 36239 GUAIFENESIN-CODEINE Inactive PROMETHAZINE-CODEINE 6.25-10 MG/5ML ORAL SYRUP 1 tsp b y mouth every 6 hours if needed for cough PROMETHAZINE-CODEINE 6.25-10 MG/5ML ORAL SYRUP 438452 PROMETHAZINE-CODEINE Inactive CHERATUSSIN AC 100-10 MG/5ML ORAL SYRUP 1 tsp by mouth every 4 hours as needed for cough CHERATUSSIN AC 100-10 MG/5ML ORAL SYRUP 9 08779 GUAIFENESIN-CODEINE Inactive FLUTICASONE PROPIONATE 50 MCG/ACT NASAL SUSPENSION 1 t o 2 sprays each nostril daily FLUTICASONE PROPIONATE 50 MCG/AC T NASAL SUSPENSION 7908964 FLUTICASONE PROPIONATE Inactive PREDNISONE 20 MG ORAL TABLET 3 tab PO qd x 2d, 2 tab P O qd x 2d, 1 tab PO qd x 2d, 1/2 tab PO qd x 2d PREDNISONE 20 MG ORAL TAB LET 371885 PREDNISONE Inactive LEVOFLOXACIN 500 MG ORAL TABLET 1 tab PO daily x 10 days LEVOFLOXACIN 500 MG ORAL TABLET 249810 LEVOFLOXACIN Inactive CYCLOBENZAPRINE HCL 10 MG ORAL TABLET 1 tablet by mouth BID prn had pain CYCLOBENZAPRINE HCL 10 MG ORAL TABLET 906798 CYCLOBENZAPRINE HCL Inactive ZOCOR 40 MG ORAL TABLET 1 tab by mouth daily 4 ZOCOR 40 MG ORAL TABLET 795427 SIMVASTATIN Inactive TUSSIONEX PENNKINETIC ER 10-8 MG/5ML [...] FLUTICASONE PROPIO EFE 50 MCG/ACT NASAL SUSPENSION 8077421 FLUTICASONE PROPIONATE Inactive TUSSIONEX PENNKINETIC ER 10-8 MG/5ML ORAL SUSPENSION E XTENDED RELEASE 5 mL PO q 12 hrs PRN cough TUSSIONEX PENNKINETI C ER 10-8 MG/5ML ORAL SUSPENSION EXTENDED RELEASE HYDROCOD POLST-CHLORPHEN POLST I nactive LYRICA 100 MG ORAL CAPSULE Take 1 tab po BID for fibromyalgia 20 11/08/21 LYRICA 100 MG ORAL CAPSULE 230255 PREGABALIN Inact nael TUSSIONEX PENNKINETIC ER 10-8 [...] three days PREDNISONE 20 MG ORAL TABLET 642660 PREDNIS ONE Inactive PROAIR HFA 108 (90 BASE) MCG/ACT INHALATION AEROSOL SO LUTION 2 puffs four times a day as needed PROAIR HFA 108 (90 B ASE) MCG/ACT INHALATION AEROSOL SOLUTION ALBUTEROL SULFATE Inactive PREDNISONE 20 MG ORAL TABLET two tabs by mouth today, then one tab by mouth days two and three and four PREDNISONE 20 MG ORAL TAB LET 302114 PREDNISONE Inactive TUSSIONEX PENNKINETIC ER 10-8 MG/5ML [...] bid 04/20 TOPAMAX 100 MG ORAL TABLET 287180 TOPIRAMATE Inactive CYMBALTA 30 MG ORAL CAPSULE DELAYED RELEASE PARTICLES 1 cap by mouth daily for depression CYMBALTA 30 MG ORAL CAPSULE DELAYED RELEASE PARTICLES 025818 DULOXETINE HCL Inactive TYLENOL WITH CODEINE #3 300-30 MG ORAL TABLET 1-2 po q6hr PRN Pa in TYLENOL WITH CODEINE #3 300-30 MG ORAL TABLET 404676 ACETAMINOPHEN-CODEINE Inactive TYLENOL WITH CODEINE #3 300-30 MG ORAL TABLET TYLENOL WITH CODEINE #3 300-30 MG ORAL TABLET 072142 ACETAMINOPHEN-CODEINE Inactive TRIAMCINOLONE ACETONIDE 0.1 % EXTERNAL CREAM apply bid spari ngly to rash TRIAMCINOLONE ACETONIDE 0.1 % EXTERNAL CREAM 101 4318 TRIAMCINOLONE ACETONIDE Inactive ZITHROMAX Z-REYNA 250 MG ORAL TABLET 2 today, then 1 daily for 4 d ays ZITHROMAX Z-REYNA 250 MG ORAL TABLET 509777 AZITHROMYCIN Inactive CEFDINIR 300 MG ORAL CAPSULE by mouth twice a day 2010 CEFDINIR 300 MG ORAL CAPSULE 691908 CEFDINIR Inactive CEFDINIR 300 MG ORAL CAPSULE by mouth twice a day 2010 CEFDINIR 300 MG ORAL CAPSULE 967124 CEFDINIR Inactive CEFDINIR 300 MG ORAL CAPSULE by mouth twice a day 2010 CEFDINIR 300 MG ORAL CAPSULE 736369 CEFDINIR Inactive CEFDINIR 300 MG ORAL CAPSULE by mouth twice a day 2011 CEFDINIR 300 MG ORAL CAPSULE 193596 CEFDINIR Inactive ZITHROMAX 250 MG ORAL TABLET 2 po today, then 1 po q days 2-5 20 03/07/07 ZITHROMAX 250 MG ORAL TABLET 615110 AZITHROMYCIN [place] [facility] CEFDINIR 300 MG ORAL CAPSULE by mouth twice a day 2011 CEFDINIR 300 MG ORAL CAPSULE 458645 CEFDINIR Inactive PREDNISONE 20 MG ORAL TABLET 2 tabs daily for 3 days, 1 tab daily for 3 days, 1/2 tab daily for 2 days PREDNISONE 20 MG ORAL T ABLET 410485 PREDNISONE Inactive AVELOX 400 MG ORAL TABLET [...] days 11/07 PREDNISONE 20 MG ORAL TABLET 268149 PREDNISONE Inactive LEVAQUIN 500 MG ORAL TABLET take one po QD LEVAQUIN 500 MG ORAL TABLET 569520 LEVOFLOXACIN Inactive AZITHROMYCIN 250 MG ORAL TABLET 2 po qd x 1 day, then 1 po q d x 4 days AZITHROMYCIN 250 MG ORAL TABLET 369033 AZITHROMY GIOVANNI Inactive MEDROL 4 MG ORAL TABLET THERAPY PACK 6 tabs on day 1, 5 tabs on day 2, 4 tabs on day 3, 3 tabs on day 4, 2 tabs on day 5, 1 tab on day 6 2013 MEDROL 4 MG ORAL TABLET THERAPY PACK 337007 METHYLPREDNISOLONE [place] [facility] CHERATUSSIN AC 100-10 MG/5ML ORAL SYRUP 5ml po q6hr PRN Cough 20 13/04/14 CHERATUSSIN AC 100-10 MG/5ML ORAL SYRUP 175803 GUAIFENE SIN-CODEINE Inactive TRIAMCINOLONE ACETONIDE 0.1 % EXTERNAL CREAM apply three roger es daily prn rash TRIAMCINOLONE ACETONIDE 0.1 % EXTERNAL CREAM 101 4314 TRIAMCINOLONE ACETONIDE Inactive AZITHROMYCIN 250 MG ORAL TABLET 2 po qd x 1 day, then 1 po q d x 4 days AZITHROMYCIN 250 MG ORAL TABLET 264458 AZITHROMY GIOVANNI Inactive MEDROL 4 MG ORAL TABLET THERAPY PACK 6 pills x 1 day, then 5 pills x 1 day then 4 pills x 1 day, then 3 pills x 1 day, then 2 pills x 1 day, then 1 pill x 1 day, then stop MEDROL 4 MG ORAL TABLET THERAPY PACK 673377 METHYLPREDNISOLONE Inactive AMOXICILLIN 500 MG ORAL CAPSULE 1 tab by mouth 3 times daily x 10 days AMOXICILLIN 500 MG ORAL CAPSULE 272754 AMOXICILL IN Inactive AMOXICILLIN 500 MG ORAL CAPSULE 1 tab by mouth 3 times daily x 10 days AMOXICILLIN 500 MG ORAL CAPSULE 602627 AMOXICILL IN Inactive ZITHROMAX 250 MG ORAL TABLET 2 po today, then 1 po q days 2-5 20 12/08/14 ZITHROMAX 250 MG ORAL TABLET 939911 AZITHROMYCIN [place] [facility] AUGMENTIN 875-125 MG ORAL TABLET 1 po BID x 10 days 20 13/01/20 AUGMENTIN 875-125 MG ORAL TABLET AMOXICILLIN-POT CLAVULANATE Inactive ZITHROMAX Z-REYNA 250 MG ORAL TABLET 2 today, then 1 daily for 4 d ays ZITHROMAX Z-REYNA 250 MG ORAL TABLET 761259 AZITHROMYCIN Inactive ZITHROMAX 250 MG ORAL TABLET 2 po today, then 1 po q days 2-5 20 14/03/21 ZITHROMAX 250 MG ORAL TABLET 526639 AZITHROMYCIN [place] [facility] ZITHROMAX Z-REYNA 250 MG ORAL TABLET 2 today, then 1 daily for 4 d ays ZITHROMAX Z-REYNA 250 MG ORAL TABLET 557940 AZITHROMYCIN Inactive CEFDINIR 300 MG ORAL CAPSULE 1 po BID x 10 days 06/21 CEFDINIR 300 MG ORAL CAPSULE 029586 CEFDINIR Inactive ZITHROMAX 250 MG ORAL TABLET 2 po today, then 1 po q days 2-5 20 13/08/10 ZITHROMAX 250 MG ORAL TABLET 661204 AZITHROMYCIN [place] [facility] LEVAQUIN 500 MG ORAL TABLET 1 tablet by mouth daily 13/09/24 LEVAQUIN 500 MG ORAL TABLET 187925 LEVOFLOXACIN Inactive SINGULAIR 10 MG ORAL TABLET 1 po qday for allergies 20 14/01/12 SINGULAIR 10 MG ORAL TABLET 672353 MONTELUKAST SODIUM Inactive AMOXICILLIN 500 MG ORAL CAPSULE 2 po BID x 10 days 201 09/29/08 AMOXICILLIN 500 MG ORAL CAPSULE 151526 AMOXICILLIN Inactive PREDNISONE 20 MG ORAL TABLET 2 tabs daily for 3 days, 1 tab daily for 3 days, 1/2 tab daily for 2 days PREDNISONE 20 MG ORAL T ABLET 221399 PREDNISONE Inactive ZITHROMAX Z-REYNA 250 MG ORAL TABLET 2 today, then 1 daily for 4 d ays ZITHROMAX Z-REYNA 250 MG ORAL TABLET 095458 AZITHROMYCIN Inactive PREDNISONE 20 MG ORAL TABLET 2 tabs daily for 3 days, 1 tab daily for 3 days, 1/2 tab daily for 2 days PREDNISONE 20 MG ORAL T ABLET 281665 PREDNISONE Inactive ZITHROMAX 250 MG ORAL TABLET 2 po today, then 1 po q days 2-5 20 14/09/04 ZITHROMAX 250 MG ORAL TABLET 192739 AZITHROMYCIN [place] [facility] AMOXICILLIN 500 MG ORAL CAPSULE 1 cap by mouth three times a day AMOXICILLIN 500 MG ORAL CAPSULE 910543 AMOXICILLIN Inactive TERBINAFINE HCL 250 MG ORAL TABLET 1 qDay for nail fungus 7 TERBINAFINE HCL 250 MG ORAL TABLET 259038 TERBINAFINE HCL Inact nael AUGMENTIN 875-125 MG ORAL TABLET 1 po BID x 10 days 16/03/22 AUGMENTIN 875-125 MG ORAL TABLET AMOXICILLIN-POT CLAVULANATE Inactive PREDNISONE 20 MG ORAL TABLET 2 po qd x 5 days PREDNISONE 20 MG ORAL TABLET 122182 PREDNISONE Inactive AZITHROMYCIN 250 MG ORAL TABLET 2 po qd x 1 day, then 1 po q d x 4 days AZITHROMYCIN 250 MG ORAL TABLET 731866 AZITHROMY GIOVANNI Inactive PREDNISONE 50 MG ORAL TABLET Take 50 mg dialy for 6 day s 7 PREDNISONE 50 MG ORAL TABLET 168223 PREDNISONE Inactive AUGMENTIN 875-125 MG ORAL TABLET 1 po BID x 10 days 18/04/16 AUGMENTIN 875-125 MG ORAL TABLET AMOXICILLIN-POT CLAVULANATE Inactive DOXYCYCLINE HYCLATE 100 MG ORAL CAPSULE 1 cap by mouth twice latasha ly DOXYCYCLINE HYCLATE 100 MG ORAL CAPSULE 3030983 DOXYCYCL INE HYCLATE Inactive PREDNISONE 20 MG ORAL TABLET Take 2 tabs day 1 and 2 and 1 t ab days 3 and 4 PREDNISONE 20 MG ORAL TABLET 860722 PREDNISONE Inactive AMOXICILLIN 500 MG ORAL CAPSULE 1 cap by mouth twice daily 10/21 AMOXICILLIN 500 MG ORAL CAPSULE 322352 AMOXICILLIN Inactive TRIAMCINOLONE ACETONIDE 0.1 % EXTERNAL OINTMENT Apply to affected areas TID PRN Rash/Itching for up 2 weeks TRIAMCINOLON E ACETONIDE 0.1 % EXTERNAL OINTMENT 0750676 TRIAMCINOLONE ACETONIDE Inactive ACYCLOVIR 800 MG ORAL TABLET 1 po 5 times daily x 7 days ACYCLOVIR 800 MG ORAL TABLET 981197 ACYCLOVIR Inactive Vital Signs Date Name Value [...] Panel - Chemistry sodium, serum 137 mmol/L 865-761 7808/10/08 carbon dioxide, venous blood 29.9 mmol/L 21.0-32 [...] 0.50 mg/dL 0.00-1.00 cholesterol, serum 324 mg/dL 093-017 6229/10/08 triglyceride, serum, fasting 130 mg/dL 30-200 HDL [...] negative Encounters Code Encounter Date Provider Facility CPT-87370 [id number] Vst-Est Level IV 09:06:31 C ESAU Hu MD [facility] CPT-66723 Level 3 Est. Patient 14:16:41 CDT David Tin dle [facility] CPT-49748 Level 3 Est. Patient 13:57:55 CDT David Tin dle [facility] CPT-22684 Level 3 Est. Patient 16:08:07 CDT David Tin dle [facility] CPT-11409 Level 3 Est. Patient 16:53:54 CDT May haas MD [facility] CPT-04344 [id number] Vst-Est Level IV 08:41:08 Jadon Santos MD [facility] CPT-14042 Level 3 Est. Patient 09:46:49 KAIWHAKAHAERE David Antonino riverae [facility] CPT-26039 [id number] Vst-Est Level III 11:12:16 CDT Yanet Bess DO [facility] CPT-66011 Level 3 Est. Patient 11:34:49 KAIWHAKAHAERE Perez Mora MD [facility] CPT-69334 Level 4 Est. Patient 09:51:32 KAIWH[place]AHAERE Carlton rich MD [facility] CPT-83306 Level 3 Est. Patient 10:26:00 KAI[place]HAERE Eilse Hitchcock [facility] CPT-80200 Level 3 Est. Patient 13:35:41 KAIWHAKAHAERE Carlton rich MD [facility] CPT-29672 Level 3 Est. Patient 10:03:52 KAI[place]AHAERE Carlton rich MD [facility] CPT-52455 Level 3 Est. Patient 12:17:50 CDT Hugo Restrepo MD [facility] CPT-87380 Level 3 Est. Patient 13:42:38 CDT Elise Hitchcock [facility] CPT-85373 Level 3 Est. Patient 13:23:51 CDT Diya cobian [facility] CPT-47674 Level 3 Est. Patient 14:22:19 KAIWHAKAHAERE Diya cobian [facility] CPT-88825 Level 3 Est. Patient 10:11:46 CDT Carlton rich MD [facility] CPT-71332 Level 3 Est. Patient 17:29:43 CDT Elise Hitchcock [facility] CPT-34236 Level 3 Est. Patient 11:58:06 CDT Elise Hitchcock seema KHAN [facility] CPT-31358 Level 4 Est. Patient 14:36:51 CDT Carlton rich MD [facility]-58083 Level 3 Est. Patient 18:16:00 KAIWHAKAHAERE Blaine Freeman [facility] CPT-54616 Level 3 Est. Patient 09:45:49 KAIWHAKAHAERE Carlton rich MD [facility] CPT-62331 Level 3 Est. Patient 13:19:20 CDT Carlton rich MD [facility]-18130 Level 3 Est. Patient 13:06:43 CDT Ridge tam DO [facility] CPT-49017 Level 3 Est. Patient 10:03:07 CDT Perez Mora MD [facility] CPT-69504 Level 3 Est. Patient 19:50:35 KAIWHAKAHAERE Carlton rich MD [facility] CPT-89075 Level 4 Est. Patient 18:05:01 KAIWHAKAHAERE Carlton rich MD [facility] CPT-19889 Level 3 Est. Patient 10:45:55 KAIWHAKAHAERE Hugo Restrepo MD [facility] CPT-88612 Level 3 Est. Patient 14:12:49 CDT Griffin [facility] CPT-19192 Level 3 Est. Patient 17:37:24 CDT Carlton rich MD [facility] CPT-35875 Level 3 Est. Patient 16:51:54 CDT Carlton rich MD [facility]-73381 Level 3 Est. Patient 12:18:11 CDT Hugo Restrepo MD [facility]-82952 Level 3 Est. Patient 11:30:25 CDT Marcy crisostomo MD PhD [facility] CPT-05803 Level 3 Est. Patient 12:00:47 KAIWH[place]AHAERE Carlton rich MD [facility] CPT-70582 Level 3 Est. Patient 16:31:06 KAIWHAKAHAERE Carlton rich MD [facility] CPT-55138 Level 3 Est. Patient 16:23:24 KAIWH[place]HAERE [facility] CPT-26163 Level 3 Est. Patient 12:34:12 CDT Carlton rich MD [facility] CPT-40677 Level 2 Est. Patient 15:43:33 CDT Robi armstrong MD [facility] CPT-28594 Level 4 Est. Patient 14:04:44 CDT Carlton rich MD [facility] CPT-82171 Level 3 Est. Patient 05:47:59 CDT [facility] CPT-03892 Level 3 Est. Patient 13:12:53 KAIWHAKAHAERE Carlton rich MD [facility] CPT-54354 Level 3 Est. Patient 14:26:53 CDT Hugo Restrepo MD [facility] Procedures Code Procedure Name Date Entry Date Standard Desc ription CPT-76337 Venipuncture Draw Fee 15:53:34 CDT CPT-000 Give Appropriate Flu Vaccine 14:14:31 CDT CPT-J1040 Depo Medrol 80 mg (Methyl Prednisolone A cetate) 10:42:44 CDT CPT-J1100 Decadron 8mg (Dexamethasone) 10:42:44 CDT 2 CPT-J0696 Rocephin 1gm Inj Solr 14:32:13 CDT CPT-J1020 Depo Medrol 60 mg (Methyl Prednisolone A cetate) 14:32:13 CDT CPT-J1100 Decadron 6mg (Dexamethasone) 14:32:13 CDT 2 CPT-14902 Hip bilat min 2V w AP pelvis 13:16:20 CDT 2 CPT-67133 Pelvis only 13:07:33 CDT CPT-61480 Spec Collection and Handling Fee 11:25:12 C DT CPT-78533 Fluzone Quadrivalent Intramuscular Suspe nsion 0.5 ML 14:31:55 CDT CPT-61253 Abx/Therapy Injection 13:28:47 KAIWHAKAHAERE CPT-J2930 Solu Medrol 125 mg (Methyl Prednisolone Sodium Succinate) 12:00:47 KAIWHAKAHAERE CPT-30859 Venipuncture Draw Fee 11:33:31 CDT CPT-64811 EKG Trac and Interp 11:21:09 CDT CPT-44189 Chest 2V Frontal and Lat 11:21:09 CDT 12/15 CPT-44031 Venipuncture Draw Fee 08:02:34 CDT CPT-33605 Chest 2V Frontal and Lat 05:47:59 CDT 06/05
--- OUTSIDE RECORDS SUMMARY | 2019-10-08 09:54 | XMS REPORT | Clinical Summary ---
Author Author Caitlin, Juliana Martinez Organization [facility] Address Unknown Phone Unavailable Allergies, Adverse [...] chronic Upper respiratory infection 465.9 Active Hugo Retsrepo MD Acute upper respiratory infections of un specified site Pharyngitis 462 Active Hugo Restrepo MD Acute pharyngitis Onychomycosis 112.3 Active Carlton Hu MD Candidiasis of skin and nails Sinusitis - acute 461.9 Active Elise Garcia APRN Acute sinusitis, unspecified Angina pectoris 413.9 Active Carlton Means Other and unspecified angina pectoris URI 465.9 Inactive Ridge Bess DO [facility] [place] upper respiratory infections of unspecified site Body Mass Index 35.0-35.9 Adult Refinement 2017 Ridge Bess DO Body Mass Index 35.0-35.9, adult BMI 34-34.9 Refinement Cherelle Torres RN Body Mass Index 35.0-35.9, adult BMI 35-35.9 Refinement David Marianneamisha RICEN Body Mass Index 35.0-35.9, adult BMI 34-34.9 Refinement May Vivar MD Body Mass Index 35.0-35.9, adult BMI 35-35.9 Refinement David Marianne [employer]AL DELIVERY OFFICER Body Mass Index 35.0-35.9, adult BMI 33-33.9 Active David Marianne POSTAL DELIVERY OFFICER Body Mass Index 35.0-35.9, adult Upper respiratory infection, viral 465.9 Active 2 Perez Mora MD Acute upper respiratory infections of un specified site Obesity Class I (BMI 30-34.9) Refinement Jose Torres RN Obesity, unspecified Morbid obesity due to excess calories [facility] David Marianneamisha RICEN Obesity, unspecified [...] nonspecific skin eruption 782.1 Active David Marianne [employer]AL DELIVERY OFFICER Rash and other nonspecific skin eruption Pharyngitis, acute / sore throat 462 Active 201 12/06/23 David Marianne [employer]AL DELIVERY OFFICER Acute pharyngitis Shingles 053.9 Active David Marianne [employer]AL DELIVERY OFFICER Herpes zoster without mention of complication Allergic [...] 201 06/01/09 SINUSITIS ICD-473.9 Inactive Marcy De L aRosa MD Ph D CONTACT DERMATITIS ICD-692.9 Inactive [...] DAILY WITH EXTRA STRENGTH TYLENOL TRAMADOL HCL 57137000408 Active Carlton Hu MD Active ALPRAZOLAM 0.5 MG TABS TAKE 1 TABLET BY MOUTH ONCE DAILY NEEDED ALPRAZOLAM 16278811463 Active Carlton Hu MD Active TOPIRAMATE 100 MG TABS TAKE 1 TABLET BY MOUTH TWICE DAILY 1 TOPIRAMATE 60881438152 Active Carlton Hu MD Active ATORVASTATIN CALCIUM 10 MG ORAL TABLET 1 pill by mouth night ly, for cholesterol ATORVASTATIN CALCIUM 31250262282 Active Columba Parrish Active TRIAMCINOLONE ACETONIDE 0.1 % EXTERNAL CREAM apply bid spari ngly to rash TRIAMCINOLONE ACETONIDE 04863070715 No Longer Active Carlton Hu MD Active TYLENOL WITH CODEINE #3 300-30 MG ORAL TABLET ACETAMINOPHEN-CODEINE 71117697598 No Longer Active Carlton Hu MD Active TYLENOL WITH CODEINE #3 300-30 MG ORAL TABLET 1-2 po q6hr PRN Pa in ACETAMINOPHEN-CODEINE 38051364136 No Longer Active David HERNANDEZ RN Active ACYCLOVIR 800 MG ORAL TABLET 1 po 5 times daily x 7 days ACYCLOVIR 69820485503 No Longer Active Daivd Marianne [employer]AL DELIVERY OFFICER Active TOPAMAX 100 MG ORAL TABLET 1 by mouth twice daily TOPIRAMATE 94263238596 Active Carlton Hu MD Active TRIAMCINOLONE ACETONIDE 0.1 % EXTERNAL OINTMENT Apply to affected areas TID PRN Rash/Itching for up 2 weeks TRIAMCINOLONE ACETON KAYLA 35634211455 No Longer Active David Lopes [employer]AL DELIVERY OFFICER Active AMOXICILLIN 500 MG ORAL CAPSULE 1 cap by mouth twice daily 10/21 AMOXICILLIN 08926677962 No Longer Active David Lopes APRN Active ELMIRON 100 MG ORAL CAPSULE 2 capsules in the morning and 1 capsule at night PENTOSAN POLYSULFATE SODIUM 16552954492 Active 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 Active CYMBALTA 30 MG ORAL CAPSULE DELAYED RELEASE PARTICLES 1 cap by mouth daily for depression DULOXETINE HCL 51300286578 No Longer Active Carlton Hu MD Active CYMBALTA 60 MG ORAL CAPSULE DELAYED RELEASE PARTICLES 1 cap by mouth daily for mood and pain DULOXETINE HCL 30876161576 Active Carlton Hu MD Active TUSSIONEX PENNKINETIC ER 10-8 MG/5ML ORAL SUSPENSION E XTENDED RELEASE 5ml po q12hr PRN Cough HYDROCOD POLST-CHLORPHEN POLST 06385361091 Active Carlton Hu MD Active PREDNISONE 20 MG ORAL TABLET Take 2 tabs day 1 and 2 and 1 t ab days 3 and 4 PREDNISONE 72084709574 No Longer Active David Lopes APRN Active DOXYCYCLINE HYCLATE 100 MG ORAL CAPSULE 1 cap by mouth twice latasha ly DOXYCYCLINE HYCLATE 85695187818 No Longer Active David Lopes APRN Active TOPAMAX 100 MG ORAL TABLET Take 1 tablet po bid TOPIRAMATE 33125458968 No Longer Active David Marianne [employer]AL DELIVERY OFFICER Active TUSSIONEX PENNKINETIC ER 10-8 MG/5ML ORAL SUSPENSION E XTENDED RELEASE 5ml po q12hr PRN Cough HYDROCOD POLST-CHLORPHEN POLST 5 9587921558 No Longer Active David Marianne POSTAL DELIVERY OFFICER Active AUGMENTIN 875-125 MG ORAL TABLET 1 po BID x 10 days 18/04/16 AMOXICILLIN-POT CLAVULANATE 40399719601 No Longer Active David Marianne RICEN Active PREDNISONE 50 MG ORAL TABLET Take 50 mg dialy for 6 day s 7 PREDNISONE 03022797273 No Longer Active David Marianne [employer]AL DELIVERY OFFICER Active TUSSIONEX PENNKINETIC ER 10-8 MG/5ML ORAL SUSPENSION E XTENDED RELEASE 5ml po q12hr PRN Cough HYDROCOD POLST-CHLORPHEN POLST 5 0053923330 No Longer Active Cherelle Torres RN Active PREDNISONE 20 MG ORAL TABLET two tabs by mouth today, then one tab by mouth days two and three and four PREDNISONE 55249151965 No Lo nger Active Cherelle Torres RN Active AZITHROMYCIN 250 MG ORAL TABLET 2 po qd x 1 day, then 1 po q d x 4 days AZITHROMYCIN 33143761062 No Longer Active Ridge Bess DO Active PREDNISONE 20 MG ORAL TABLET 2 po qd x 5 days P REDNISONE 05275447355 No Longer Active Perez Mora MD Active PROAIR HFA 108 (90 BASE) MCG/ACT INHALATION AEROSOL SO LUTION 2 puffs four times a day as needed ALBUTEROL SULFATE 11599216714 No Long er Active Becky FUENTES Active ASPIRIN 81 MG ORAL TABLET 1 po qd ASPIRIN 43662107415 Active Carlton Hu MD Active PREDNISONE 20 MG ORAL TABLET 1 tab twice daily for 3 d ay, then one daily for three days PREDNISONE 22499262749 No Longer Active Carlton Hu MD Active AUGMENTIN 875-125 MG ORAL TABLET 1 po BID x 10 days 16/03/22 AMOXICILLIN-POT CLAVULANATE 77966037106 No Longer Active Elise Garcia APRN Active TERBINAFINE HCL 250 MG ORAL TABLET 1 qDay for nail fungus 7 TERBINAFINE HCL 92509679764 No Longer Active Carlton Hu MD A ctive AMOXICILLIN 500 MG ORAL CAPSULE 1 cap by mouth three times a day AMOXICILLIN 23634464182 No Longer Active Carlton Hu MD Active ELMIRON 100 MG ORAL CAPSULE 2 tablets in the am and 1 tablet at hs PENTOSAN POLYSULFATE SODIUM 96957926144 No Longer Active Robert Hu MD Active MUCINEX D 60-600 MG ORAL TABLET EXTENDED RELEASE 12 HOUR 1 t ab po q am PSEUDOEPHEDRINE-GUAIFENESIN 36470920357 No Longer Act nael Carlton Hu MD Active MUCINEX DM MAXIMUM STRENGTH 60-1200 MG ORAL TABLET EXT ENDED RELEASE 12 HOUR 1 tab po q am DEXTROMETHORPHAN-GUAIFENESIN 69695938079 No Longer Active Carlton Hu MD Active TUSSIONEX PENNKINETIC ER 10-8 MG/5ML ORAL SUSPENSION E XTENDED RELEASE 5ml po q12hr PRN Cough HYDROCOD POLST-CHLORPHEN POLST 5 3508687320 No Longer Active Carlton Hu MD Active POTASSIUM CHLORIDE ER 20 MEQ ORAL TABLET EXTENDED RELE ASE Take 1 by mouth 4 times daily for 7 days POTASSIUM CHLORIDE 42514300283 No Longer Active Carlton Hu MD Active ZITHROMAX 250 MG ORAL TABLET 2 po today, then 1 po q days 2-5 20 14/09/04 AZITHROMYCIN 12327642369 No Longer Active Elise Garcia APRN Active TUSSIONEX PENNKINETIC ER 10-8 MG/5ML ORAL SUSPENSION E XTENDED RELEASE 5 ml twice a day as needed for cough HYDROCOD POLST-CHLORPH EN POLST 55009537475 No Longer Active Elise Garcia APRN Active MONTELUKAST SODIUM 10 MG ORAL TABLET 1 po daily for Allergy MONTELUKAST SODIUM 30768576586 Active Carlton Hu MD Ac tive TUSSIONEX PENNKINETIC ER 10-8 MG/5ML ORAL SUSPENSION E XTENDED RELEASE 5ml po q12hr PRN Cough HYDROCOD POLST-CHLORPHEN POLST 5 4636757680 No Longer Active Hugo Restrepo MD Active GABAPENTIN 100 MG ORAL CAPSULE 1 po BID for fibromyalgia GABAPENTIN 59811979793 Active ALFREDO Holly Active LYRICA 100 MG ORAL CAPSULE Take 1 tab po BID for fibromyalgia 20 11/08/21 PREGABALIN 82307609521 No Longer Active Elise Garcia APRN A ctive PREDNISONE 20 MG ORAL TABLET 2 tabs daily for 3 days, 1 tab daily for 3 days, 1/2 tab daily for 2 days PREDNISONE 17474619204 No Longer Active Diya De Guzman APRN Active TUSSIONEX PENNKINETIC ER 10-8 MG/5ML ORAL SUSPENSION E XTENDED RELEASE 5 mL PO q 12 hrs PRN cough HYDROCOD POLST-CHLORPHEN POLST 993712 29303 No Longer Active Astridina Gege KHAN Active FLUTICASONE PROPIONATE 50 MCG/ACT NASAL SUSPENSION 2 s prays each nostril daily until bottle is empty FLUTICASONE PROPIONATE 713765853 99 No Longer Active Venullina Gege RICEN Active ASMANEX 60 METERED DOSES 220 MCG/INH INHALATION AEROSO L POWDER BREATH ACTIVATED 1 puff bid with rinse after MOMETASONE FUROATE 6222124 4102 No Longer Active Jillina Cesarl POSTAL DELIVERY OFFICER Active ZITHROMAX Z-REYNA 250 MG ORAL TABLET 2 today, then 1 daily for 4 d ays AZITHROMYCIN 69440685815 No Longer Active Elise Garcia APRN Active TUSSIONEX PENNKINETIC ER 10-8 MG/5ML ORAL SUSPENSION E XTENDED RELEASE 5ml po q12hr PRN Cough HYDROCOD POLST-CHLORPHEN POLST 5 2797447552 No Longer Active Elise Garcia POSTAL DELIVERY OFFICER Active PREDNISONE 20 MG ORAL TABLET 2 tabs daily for 3 days, 1 tab daily for 3 days, 1/2 tab daily for 2 days PREDNISONE 99278619357 No Longer Active Diya De Guzman POSTAL DELIVERY OFFICER Active AMOXICILLIN 500 MG ORAL CAPSULE 2 po BID x 10 days 201 09/29/08 AMOXICILLIN 90446550951 No Longer Active Diya De Guzman POSTAL DELIVERY OFFICER Act nael SINGULAIR 10 MG ORAL TABLET 1 po qday for allergies 20 14/01/12 MONTELUKAST SODIUM 87379996587 No Longer Active Carlton Hu MD Active LEVAQUIN 500 MG ORAL TABLET 1 tablet by mouth daily 13/09/24 LEVOFLOXACIN 65176205490 No Longer Active Carlton Hu MD Acti ve FLUTICASONE PROPIONATE 50 MCG/ACT NASAL SUSPENSION 2 s prays each nostril daily for 2 weeks, then 1 spray each nostril daily. FLUTICASONE PROPIONATE 94633764364 Active Carlton Hu MD Active ZITHROMAX 250 MG ORAL TABLET 2 po today, then 1 po q days 2-5 20 13/08/10 AZITHROMYCIN 77263362338 No Longer Active Elise Garcia APRN Active CEFDINIR 300 MG ORAL CAPSULE 1 po BID x 10 days CEFDINIR 47799621351 No Longer Active Carlton Hu MD Active ZOCOR 40 MG ORAL TABLET 1 tab by mouth daily SI MVASTATIN 06273789948 No Longer Active Carlton Hu MD Active CYCLOBENZAPRINE HCL 10 MG ORAL TABLET 1 tablet by mouth BID prn had pain CYCLOBENZAPRINE HCL 47447494934 No Longer Active Jayden Hu MD Active LEVOFLOXACIN 500 MG ORAL TABLET 1 tab PO daily x 10 days LEVOFLOXACIN 88549976648 No Longer Active Carlton Hu MD Acti ve PREDNISONE 20 MG ORAL TABLET 3 tab PO qd x 2d, 2 tab P O qd x 2d, 1 tab PO qd x 2d, 1/2 tab PO qd x 2d PREDNISONE 73858031792 No Lo nger Active Carlton Hu MD Active FLUTICASONE PROPIONATE 50 MCG/ACT NASAL SUSPENSION 1 t o 2 sprays each nostril daily FLUTICASONE PROPIONATE 86258912803 No Longer Ac tive Blaine HERNANDEZ Active CHERATUSSIN AC 100-10 MG/5ML ORAL SYRUP 1 tsp by mouth every 4 hours as needed for cough GUAIFENESIN-CODEINE 06010562449 No Longe r Active Blaine HERNANDEZ Active PROMETHAZINE-CODEINE 6.25-10 MG/5ML ORAL SYRUP 1 tsp b y mouth every 6 hours if needed for cough PROMETHAZINE-CODEINE 76081881856 No Longer Active Blaine HERNANDEZ Active CHERATUSSIN AC 100-10 MG/5ML ORAL SYRUP 1 tsp by mouth every 4 hours as needed for cough GUAIFENESIN-CODEINE 70098643997 No Longe r Active Blaine HERNANDEZ Active ZITHROMAX Z-REYNA 250 MG ORAL TABLET 2 today, then 1 daily for 4 d ays AZITHROMYCIN 70952663913 No Longer Active Columba Raida Act nael ZITHROMAX 250 MG ORAL TABLET 2 po today, then 1 po q days 2-5 20 14/03/21 AZITHROMYCIN 81949004783 No Longer Active Carlton Hu MD Active ZITHROMAX Z-REYNA 250 MG ORAL TABLET 2 today, then 1 daily for 4 d ays AZITHROMYCIN 83722126493 No Longer Active Columba Raida Act nael AUGMENTIN 875-125 MG ORAL TABLET 1 po BID x 10 days 13/01/20 AMOXICILLIN-POT CLAVULANATE 21567738341 No Longer Active Diya De Guzman APRN Active ZITHROMAX 250 MG ORAL TABLET 2 po today, then 1 po q days 2-5 20 12/08/14 AZITHROMYCIN 86761170571 No Longer Active Carlton Hu MD Active PREMARIN 0.625 MG ORAL TABLET TAKE 1 TAB BY MOUTH DAILY ESTROGENS CONJUGATED 72255278648 No Longer Active Ridge Bess DO A ctive CYMBALTA 30 MG ORAL CAPSULE DELAYED RELEASE PARTICLES 1 cap by mouth daily DULOXETINE HCL 98449024508 No Longer Active Ridge Ya ee DO Active AMOXICILLIN 500 MG ORAL CAPSULE 1 tab by mouth 3 times daily x 10 days AMOXICILLIN 55985260951 No Longer Active Carlton bustamante MD Active AMOXICILLIN 500 MG ORAL CAPSULE 1 tab by mouth 3 times daily x 10 days AMOXICILLIN 31523704076 No Longer Active Carlton bustamante MD Active PROMETHAZINE-CODEINE 6.25-10 MG/5ML ORAL SYRUP 1 tsp b y mouth every 8 hours prn cough PROMETHAZINE-CODEINE 57007696155 No Longer Acti ve Carlton Hu MD Active MEDROL 4 MG ORAL TABLET THERAPY PACK 6 pills x 1 day, then 5 pills x 1 day then 4 pills x 1 day, then 3 pills x 1 day, then 2 pills x 1 day, then 1 pill x 1 day, then stop METHYLPREDNISOLONE 03311518367 No Long er Active Perez Mora MD Active AZITHROMYCIN 250 MG ORAL TABLET 2 po qd x 1 day, then 1 po q d x 4 days AZITHROMYCIN 19812632508 No Longer Active Perez Ambriz MD Active SYMBICORT 160-4.5 MCG/ACT INHALATION AEROSOL 2 puffs bid wit h rinse after BUDESONIDE-FORMOTEROL FUMARATE 51323287249 N o Longer Active Perez Mora MD Active LYRICA 75 MG ORAL CAPSULE TAKE 1 CAPSULE BY MOUTH TWICE DAILY PREGABALIN 86409163573 No Longer Active Carlton Hu MD Acti ve TOPAMAX 25 MG ORAL TABLET 1 qHS x 1 week, then 1 BID x 1 week, then 1 qAM and 2 qHS x 1 week, then 2 BID (migraine prevention) T OPIRAMATE 73865238747 No Longer Active Jerica FUENTES Active TOPAMAX 50 MG ORAL TABLET take 1 tab po BID for migraines. 07/02 TOPIRAMATE 67195845440 No Longer Active Jerica Jonesmerissaerica RMA Active TRIAMCINOLONE ACETONIDE 0.1 % EXTERNAL CREAM apply three roger es daily prn rash TRIAMCINOLONE ACETONIDE 02683428930 No Longer Active Carlton Hu MD Active PAXIL 40 MG ORAL TABLET take 1 tab po qday for depression 0 PAROXETINE HCL 56661263395 Active Carlton Hu MD Active CHERATUSSIN AC 100-10 MG/5ML ORAL SYRUP 5ml po q6hr PRN Cough 20 13/04/14 GUAIFENESIN-CODEINE 67518709211 No Longer Active Carlton Hu MD Active MEDROL 4 MG ORAL TABLET THERAPY PACK 6 tabs on day 1, 5 tabs on day 2, 4 tabs on day 3, 3 tabs on day 4, 2 tabs on day 5, 1 tab on day 6 2013 METHYLPREDNISOLONE 47242627341 No Longer Active Perez Mora MD Active AZITHROMYCIN 250 MG ORAL TABLET 2 po qd x 1 day, then 1 po q d x 4 days AZITHROMYCIN 01438611397 No Longer Active Perez Ambriz MD Active PROPRANOLOL HCL 60 MG ORAL TABLET 1 PO Q D PROPRANOLOL HCL 92352639566 No Longer Active Perez Mora MD Activ e CHERATUSSIN AC 100-10 MG/5ML ORAL SYRUP take one tsp po Q 6h ours prn cough GUAIFENESIN-CODEINE 16231408881 No Longer Active Zia Mora MD Active AUGMENTIN 875-125 MG ORAL TABLET 1 tab by mouth twice daily with food AMOXICILLIN-POT CLAVULANATE 45115614139 No Longer Act nael Perez Mora MD Active CHERATUSSIN AC 100-10 MG/5ML ORAL SYRUP 1 tsp by mouth every 4 hours as needed for cough GUAIFENESIN-CODEINE 10123514122 No Longe r Active Hugo Restrepo MD Active ACETAMINOPHEN-CODEINE #3 300-30 MG ORAL TABLET 1 PO Q 4-6 HRS AR N PAIN ACETAMINOPHEN-CODEINE 61841044916 No Longer Active Hugo Restrepo MD Active LEVAQUIN 500 MG ORAL TABLET take one po QD LEVO FLOXACIN 31020902223 No Longer Active Griffin HERNANDEZ Active PREDNISONE 20 MG ORAL TABLET Take 3 tabs daily for 3 d ays, 2 tabs daily for 3 days, 1 tab daily for 3 days, 1/2 tab daily for 3 days 11/07 PREDNISONE 57305390738 No Longer Active Carlton Hu MD Acti ve AVELOX 400 MG ORAL TABLET 1 tab by mouth daily MOXIFLOXACIN HCL 65257873606 No Longer Active Carlton Hu MD Active CHERATUSSIN AC 100-10 MG/5ML ORAL SYRUP 1 tsp by mouth every 4 hours as needed for cough GUAIFENESIN-CODEINE 02108375735 No Longe r Active Hugo Restrepo MD Active AVELOX 400 MG ORAL TABLET 1 tab by mouth daily MOXIFLOXACIN HCL 29608610937 No Longer Active Marcy De La Rosa MD PhD Active TERBINAFINE HCL 250 MG ORAL TABLET 1 qDay T ERBINAFINE HCL 59697103119 No Longer Active Marcy De La Rosa MD PhD Active CHERATUSSIN AC 100-10 MG/5ML ORAL SYRUP 1 tsp by mouth every 4 hours as needed for cough GUAIFENESIN-CODEINE 69627670600 No Longe r Active Marcy De La Rosa MD PhD Active AVELOX 400 MG ORAL TABLET 1 tab by mouth daily MOXIFLOXACIN HCL 89525888028 No Longer Active Marcy De La Rosa MD PhD Active HYDROCODONE-ACETAMINOPHEN 5-325 MG ORAL TABLET 1 po q 6hr PRN co ugh HYDROCODONE-ACETAMINOPHEN 12748661358 No Longer Active Marcy De La Rosa MD PhD Active PREDNISONE 20 MG ORAL TABLET 2 tabs daily for 3 days, 1 tab daily for 3 days, 1/2 tab daily for 2 days PREDNISONE 36595329775 No Longer Active Carlton Hu MD Active CEFDINIR 300 MG ORAL CAPSULE by mouth twice a day 2011 CEFDINIR 57582418058 No Longer Active Carlton Hu MD Acti ve HYDROCHLOROTHIAZIDE 25 MG ORAL TABLET 1 TAB PO DAILY HYDROCHLOROTHIAZIDE 93055054499 Active Carlton Hu MD A ctive ACETAMINOPHEN-CODEINE #3 300-30 MG ORAL TABLET 1 tablet po q 4-6 hrs prn pain ACETAMINOPHEN-CODEINE 71772999127 No Longer Active Ridge Bess DO Active ZITHROMAX 250 MG ORAL TABLET 2 po today, then 1 po q days 2-5 20 03/07/07 AZITHROMYCIN 73536730904 No Longer Active Carlton Hu MD Active CHERATUSSIN AC 100-10 MG/5ML ORAL SYRUP take 1 tsp po q4-6 h ours prn cough GUAIFENESIN-CODEINE 67179238751 No Longer Active Jayden Hu MD Active ACETAMINOPHEN-CODEINE #3 300-30 MG ORAL TABLET 1 PO Q 4-6 HR PRN PAIN ACETAMINOPHEN-CODEINE 36262145015 No Longer Active Da raimundo Hu MD Active LORTAB 7.5-500 MG/15ML ORAL ELIXIR 7.5 ml po q 4 hour prn cough HYDROCODONE-ACETAMINOPHEN 12260672044 No Longer Active Carlton Hu MD Active PREDNISONE 20 MG ORAL TABLET 1 po bid 3 days, then 1 po q day 3 days PREDNISONE 35681010291 No Longer Active Carlton Hu MD Active CEFDINIR 300 MG ORAL CAPSULE by mouth twice a day 2011 CEFDINIR 89372168905 No Longer Active Carlton Hu MD Acti ve CEFDINIR 300 MG ORAL CAPSULE by mouth twice a day 2010 CEFDINIR 80152285529 No Longer Active Carlton Hu MD Acti ve CEFDINIR 300 MG ORAL CAPSULE by mouth twice a day 2010 CEFDINIR 09593357820 No Longer Active Carlton Hu MD Acti ve TESSALON PERLES 100 MG ORAL CAPSULE 1 tablet by mouth 3 times daily as needed for cough BENZONATATE 82418360120 No Longer Active Carlton Hu MD Active CEFDINIR 300 MG ORAL CAPSULE by mouth twice a day 2010 CEFDINIR 21175067012 No Longer Active Carlton Hu MD Acti ve ZITHROMAX Z-REYNA 250 MG ORAL TABLET 2 today, then 1 daily for 4 d ays AZITHROMYCIN 15926765576 No Longer Active Hugo Restrepo MD Active TESSALON PERLES 100 MG ORAL CAPSULE 1 tablet by mouth 3 times daily as needed for cough TESSALON PERLES 100 MG ORAL CAPSULE 60467 7 BENZONATATE Inactive PREDNISONE 20 MG ORAL TABLET 1 po bid 3 days, then 1 po q day 3 days PREDNISONE 20 MG ORAL TABLET 959074 PREDNISONE Greer ctive LORTAB 7.5-500 MG/15ML ORAL ELIXIR 7.5 ml po q 4 hour prn cough LORTAB 7.5-500 MG/15ML ORAL ELIXIR HYDROCODONE-A CETAMINOPHEN Inactive ACETAMINOPHEN-CODEINE #3 300-30 MG ORAL TABLET 1 PO Q 4-6 HR PRN PAIN ACETAMINOPHEN-CODEINE #3 300-30 MG ORAL TABLET 9 64180 ACETAMINOPHEN-CODEINE Inactive CHERATUSSIN AC 100-10 MG/5ML ORAL SYRUP take 1 tsp po q4-6 h ours prn cough CHERATUSSIN AC 100-10 MG/5ML ORAL SYRUP 477043 GUAIFENESIN-CODEINE Inactive ACETAMINOPHEN-CODEINE #3 300-30 MG ORAL TABLET 1 tablet po q 4-6 hrs prn pain ACETAMINOPHEN-CODEINE #3 300-30 MG ORAL TABLET 696934 ACETAMINOPHEN-CODEINE Inactive HYDROCODONE-ACETAMINOPHEN 5-325 MG ORAL TABLET 1 po q 6hr PRN co ugh HYDROCODONE-ACETAMINOPHEN 5-325 MG ORAL TABLET 083036 HYDROCODONE-ACETAMINOPHEN Inactive AVELOX 400 MG ORAL TABLET 1 tab by mouth daily AVELOX 400 MG ORAL TABLET MOXIFLOXACIN HCL Inactive CHERATUSSIN AC 100-10 MG/5ML ORAL SYRUP 1 tsp by mouth every 4 hours as needed for cough CHERATUSSIN AC 100-10 MG/5ML ORAL SYRUP 9 21218 GUAIFENESIN-CODEINE Inactive TERBINAFINE HCL 250 MG ORAL TABLET 1 qDay 07/08 TERBINAFINE HCL 250 MG ORAL TABLET 401324 TERBINAFINE HCL Inactive CHERATUSSIN AC 100-10 MG/5ML ORAL SYRUP 1 tsp by mouth every 4 hours as needed for cough CHERATUSSIN AC 100-10 MG/5ML ORAL SYRUP 9 76226 GUAIFENESIN-CODEINE Inactive ACETAMINOPHEN-CODEINE #3 300-30 MG ORAL TABLET 1 PO Q 4-6 HRS AR N PAIN ACETAMINOPHEN-CODEINE #3 300-30 MG ORAL TABLET 203333 ACETAMINOPHEN-CODEINE Inactive CHERATUSSIN AC 100-10 MG/5ML ORAL SYRUP 1 tsp by mouth every 4 hours as needed for cough CHERATUSSIN AC 100-10 MG/5ML ORAL SYRUP 9 46624 GUAIFENESIN-CODEINE Inactive AUGMENTIN 875-125 MG ORAL TABLET 1 tab by mouth twice daily with food AUGMENTIN 875-125 MG ORAL TABLET AMOXICIL MADELINE-POT CLAVULANATE Inactive CHERATUSSIN AC 100-10 MG/5ML ORAL SYRUP take one tsp po Q 6h ours prn cough CHERATUSSIN AC 100-10 MG/5ML ORAL SYRUP 988991 GUAIFENESIN-CODEINE Inactive PROPRANOLOL HCL 60 MG ORAL TABLET 1 PO Q D PROPRANOLOL HCL 60 MG ORAL TABLET 958925 PROPRANOLOL HCL Inactive TOPAMAX 50 MG ORAL TABLET take 1 tab po BID for migraines. 07/02 TOPAMAX 50 MG ORAL TABLET 303943 TOPIRAMATE Inacti ve TOPAMAX 25 MG ORAL TABLET 1 qHS x 1 week, then 1 BID x 1 week, then 1 qAM and 2 qHS x 1 week, then 2 BID (migraine prevention) TOPAMAX 25 MG ORAL TABLET 235946 TOPIRAMATE Inactive LYRICA 75 MG ORAL CAPSULE TAKE 1 CAPSULE BY MOUTH TWICE DAILY LYRICA 75 MG ORAL CAPSULE 872322 PREGABALIN Inactive SYMBICORT 160-4.5 MCG/ACT INHALATION AEROSOL 2 puffs bid wit h rinse after SYMBICORT 160-4.5 MCG/ACT INHALATION AEROSOL BUDESONIDE- FORMOTEROL FUMARATE Inactive PROMETHAZINE-CODEINE 6.25-10 MG/5ML ORAL SYRUP 1 tsp b y mouth every 8 hours prn cough PROMETHAZINE-CODEINE 6.25-10 MG/ 5ML ORAL SYRUP 479490 PROMETHAZINE-CODEINE Inactive CYMBALTA 30 MG ORAL CAPSULE DELAYED RELEASE PARTICLES 1 cap by mouth daily CYMBALTA 30 MG ORAL CAPSULE DELAYED RELE ASE PARTICLES 320392 DULOXETINE HCL Inactive PREMARIN 0.625 MG ORAL TABLET TAKE 1 TAB BY MOUTH DAILY PREMARIN 0.625 MG ORAL TABLET ESTROGENS CONJUGATED Inactive CHERATUSSIN AC 100-10 MG/5ML ORAL SYRUP 1 tsp by mouth every 4 hours as needed for cough CHERATUSSIN AC 100-10 MG/5ML ORAL SYRUP 9 03890 GUAIFENESIN-CODEINE Inactive PROMETHAZINE-CODEINE 6.25-10 MG/5ML ORAL SYRUP 1 tsp b y mouth every 6 hours if needed for cough PROMETHAZINE-CODEINE 6.25-10 MG/5ML ORAL SYRUP 984558 PROMETHAZINE-CODEINE Inactive CHERATUSSIN AC 100-10 MG/5ML ORAL SYRUP 1 tsp by mouth every 4 hours as needed for cough CHERATUSSIN AC 100-10 MG/5ML ORAL SYRUP 9 35947 GUAIFENESIN-CODEINE Inactive FLUTICASONE PROPIONATE 50 MCG/ACT NASAL SUSPENSION 1 t o 2 sprays each nostril daily FLUTICASONE PROPIONATE 50 MCG/AC T NASAL SUSPENSION 6440821 FLUTICASONE PROPIONATE Inactive PREDNISONE 20 MG ORAL TABLET 3 tab PO qd x 2d, 2 tab P O qd x 2d, 1 tab PO qd x 2d, 1/2 tab PO qd x 2d PREDNISONE 20 MG ORAL TAB LET 495248 PREDNISONE Inactive LEVOFLOXACIN 500 MG ORAL TABLET 1 tab PO daily x 10 days LEVOFLOXACIN 500 MG ORAL TABLET 590293 LEVOFLOXACIN Inactive CYCLOBENZAPRINE HCL 10 MG ORAL TABLET 1 tablet by mouth BID prn had pain CYCLOBENZAPRINE HCL 10 MG ORAL TABLET 437831 CYCLOBENZAPRINE HCL Inactive ZOCOR 40 MG ORAL TABLET 1 tab by mouth daily 4 ZOCOR 40 MG ORAL TABLET 663304 SIMVASTATIN Inactive TUSSIONEX PENNKINETIC ER 10-8 MG/5ML [...] FLUTICASONE PROPIO EFE 50 MCG/ACT NASAL SUSPENSION 1650462 FLUTICASONE PROPIONATE Inactive TUSSIONEX PENNKINETIC ER 10-8 MG/5ML ORAL SUSPENSION E XTENDED RELEASE 5 mL PO q 12 hrs PRN cough TUSSIONEX PENNKINETI C ER 10-8 MG/5ML ORAL SUSPENSION EXTENDED RELEASE HYDROCOD POLST-CHLORPHEN POLST I nactive LYRICA 100 MG ORAL CAPSULE Take 1 tab po BID for fibromyalgia 20 11/08/21 LYRICA 100 MG ORAL CAPSULE [id number] PREGABALIN Inact nael TUSSIONEX PENNKINETIC ER 10-8 [...] three days PREDNISONE 20 MG ORAL TABLET [id number] PREDNIS ONE Inactive PROAIR HFA 108 (90 BASE) MCG/ACT INHALATION AEROSOL SO LUTION 2 puffs four times a day as needed PROAIR HFA 108 (90 B ASE) MCG/ACT INHALATION AEROSOL SOLUTION ALBUTEROL SULFATE Inactive PREDNISONE 20 MG ORAL TABLET two tabs by mouth today, then one tab by mouth days two and three and four PREDNISONE 20 MG ORAL TAB LET 699394 PREDNISONE Inactive TUSSIONEX PENNKINETIC ER 10-8 MG/5ML [...] bid 04/20 TOPAMAX 100 MG ORAL TABLET 142807 TOPIRAMATE Inactive CYMBALTA 30 MG ORAL CAPSULE DELAYED RELEASE PARTICLES 1 cap by mouth daily for depression CYMBALTA 30 MG ORAL CAPSULE DELAYED RELEASE PARTICLES 357456 DULOXETINE HCL Inactive TYLENOL WITH CODEINE #3 300-30 MG ORAL TABLET 1-2 po q6hr PRN Pa in TYLENOL WITH CODEINE #3 300-30 MG ORAL TABLET 292847 ACETAMINOPHEN-CODEINE Inactive TYLENOL WITH CODEINE #3 300-30 MG ORAL TABLET TYLENOL WITH CODEINE #3 300-30 MG ORAL TABLET 380851 ACETAMINOPHEN-CODEINE Inactive TRIAMCINOLONE ACETONIDE 0.1 % EXTERNAL CREAM apply bid spari ngly to rash TRIAMCINOLONE ACETONIDE 0.1 % EXTERNAL CREAM 101 4314 TRIAMCINOLONE ACETONIDE Inactive ZITHROMAX Z-REYNA 250 MG ORAL TABLET 2 today, then 1 daily for 4 d ays ZITHROMAX Z-REYNA 250 MG ORAL TABLET 743463 AZITHROMYCIN Inactive CEFDINIR 300 MG ORAL CAPSULE by mouth twice a day 2010 CEFDINIR 300 MG ORAL CAPSULE 20020704 CEFDINIR Inactive CEFDINIR 300 MG ORAL CAPSULE by mouth twice a day 2010 CEFDINIR 300 MG ORAL CAPSULE 956608 CEFDINIR Inactive CEFDINIR 300 MG ORAL CAPSULE by mouth twice a day 2010 CEFDINIR 300 MG ORAL CAPSULE 711236 CEFDINIR Inactive CEFDINIR 300 MG ORAL CAPSULE by mouth twice a day 2011 CEFDINIR 300 MG ORAL CAPSULE 282985 CEFDINIR Inactive ZITHROMAX 250 MG ORAL TABLET 2 po today, then 1 po q days 2-5 20 03/07/07 ZITHROMAX 250 MG ORAL TABLET 209396 AZITHROMYCIN [place] [facility] CEFDINIR 300 MG ORAL CAPSULE by mouth twice a day 2011 CEFDINIR 300 MG ORAL CAPSULE 20020704 CEFDINIR Inactive PREDNISONE 20 MG ORAL TABLET 2 tabs daily for 3 days, 1 tab daily for 3 days, 1/2 tab daily for 2 days PREDNISONE 20 MG ORAL T ABLET 459394 PREDNISONE Inactive AVELOX 400 MG ORAL TABLET [...] days 11/07 PREDNISONE 20 MG ORAL TABLET 312702 PREDNISONE Inactive LEVAQUIN 500 MG ORAL TABLET take one po QD LEVAQUIN 500 MG ORAL TABLET 483279 LEVOFLOXACIN Inactive AZITHROMYCIN 250 MG ORAL TABLET 2 po qd x 1 day, then 1 po q d x 4 days AZITHROMYCIN 250 MG ORAL TABLET 055029 AZITHROMY GIOVANNI Inactive MEDROL 4 MG ORAL TABLET THERAPY PACK 6 tabs on day 1, 5 tabs on day 2, 4 tabs on day 3, 3 tabs on day 4, 2 tabs on day 5, 1 tab on day 6 2013 MEDROL 4 MG ORAL TABLET THERAPY PACK 312734 METHYLPREDNISOLONE [place] [facility] CHERATUSSIN AC 100-10 MG/5ML ORAL SYRUP 5ml po q6hr PRN Cough 20 13/04/14 CHERATUSSIN AC 100-10 MG/5ML ORAL SYRUP 586962 GUAIFENE SIN-CODEINE Inactive TRIAMCINOLONE ACETONIDE 0.1 % EXTERNAL CREAM apply three roger es daily prn rash TRIAMCINOLONE ACETONIDE 0.1 % EXTERNAL CREAM 101 4314 TRIAMCINOLONE ACETONIDE Inactive AZITHROMYCIN 250 MG ORAL TABLET 2 po qd x 1 day, then 1 po q d x 4 days AZITHROMYCIN 250 MG ORAL TABLET 756091 AZITHROMY GIOVANNI Inactive MEDROL 4 MG ORAL TABLET THERAPY PACK 6 pills x 1 day, then 5 pills x 1 day then 4 pills x 1 day, then 3 pills x 1 day, then 2 pills x 1 day, then 1 pill x 1 day, then stop MEDROL 4 MG ORAL TABLET THERAPY PACK 104290 METHYLPREDNISOLONE Inactive AMOXICILLIN 500 MG ORAL CAPSULE 1 tab by mouth 3 times daily x 10 days AMOXICILLIN 500 MG ORAL CAPSULE 415691 AMOXICILL IN Inactive AMOXICILLIN 500 MG ORAL CAPSULE 1 tab by mouth 3 times daily x 10 days AMOXICILLIN 500 MG ORAL CAPSULE 507175 AMOXICILL IN Inactive ZITHROMAX 250 MG ORAL TABLET 2 po today, then 1 po q days 2-5 20 12/08/14 ZITHROMAX 250 MG ORAL TABLET 148923 AZITHROMYCIN [place] [facility] AUGMENTIN 875-125 MG ORAL TABLET 1 po BID x 10 days 13/01/20 AUGMENTIN 875-125 MG ORAL TABLET AMOXICILLIN-POT CLAVULANATE Inactive ZITHROMAX Z-REYNA 250 MG ORAL TABLET 2 today, then 1 daily for 4 d ays ZITHROMAX Z-REYNA 250 MG ORAL TABLET 146888 AZITHROMYCIN Inactive ZITHROMAX 250 MG ORAL TABLET 2 po today, then 1 po q days 2-5 20 14/03/21 ZITHROMAX 250 MG ORAL TABLET 532781 AZITHROMYCIN [place] [facility] ZITHROMAX Z-REYNA 250 MG ORAL TABLET 2 today, then 1 daily for 4 d ays ZITHROMAX Z-REYNA 250 MG ORAL TABLET 789824 AZITHROMYCIN Inactive CEFDINIR 300 MG ORAL CAPSULE 1 po BID x 10 days 06/21 CEFDINIR 300 MG ORAL CAPSULE 465523 CEFDINIR Inactive ZITHROMAX 250 MG ORAL TABLET 2 po today, then 1 po q days 2-5 20 13/08/10 ZITHROMAX 250 MG ORAL TABLET 597348 AZITHROMYCIN [place] [facility] LEVAQUIN 500 MG ORAL TABLET 1 tablet by mouth daily 20 13/09/24 LEVAQUIN 500 MG ORAL TABLET 19971102 LEVOFLOXACIN Inactive SINGULAIR 10 MG ORAL TABLET 1 po qday for allergies 20 14/01/12 SINGULAIR 10 MG ORAL TABLET 20010504 MONTELUKAST SODIUM Inactive AMOXICILLIN 500 MG ORAL CAPSULE 2 po BID x 10 days 201 09/29/08 AMOXICILLIN 500 MG ORAL CAPSULE 896885 AMOXICILLIN Inactive PREDNISONE 20 MG ORAL TABLET 2 tabs daily for 3 days, 1 tab daily for 3 days, 1/2 tab daily for 2 days PREDNISONE 20 MG ORAL T ABLET 092461 PREDNISONE Inactive ZITHROMAX Z-REYNA 250 MG ORAL TABLET 2 today, then 1 daily for 4 d ays ZITHROMAX Z-REYNA 250 MG ORAL TABLET 683716 AZITHROMYCIN Inactive PREDNISONE 20 MG ORAL TABLET 2 tabs daily for 3 days, 1 tab daily for 3 days, 1/2 tab daily for 2 days PREDNISONE 20 MG ORAL T ABLET 813290 PREDNISONE Inactive ZITHROMAX 250 MG ORAL TABLET 2 po today, then 1 po q days 2-5 20 14/09/04 ZITHROMAX 250 MG ORAL TABLET 984266 AZITHROMYCIN [place] [facility] AMOXICILLIN 500 MG ORAL CAPSULE 1 cap by mouth three times a day AMOXICILLIN 500 MG ORAL CAPSULE 700610 AMOXICILLIN Inactive TERBINAFINE HCL 250 MG ORAL TABLET 1 qDay for nail fungus 7 TERBINAFINE HCL 250 MG ORAL TABLET 425484 TERBINAFINE HCL Inact nael AUGMENTIN 875-125 MG ORAL TABLET 1 po BID x 10 days 16/03/22 AUGMENTIN 875-125 MG ORAL TABLET AMOXICILLIN-POT CLAVULANATE Inactive PREDNISONE 20 MG ORAL TABLET 2 po qd x 5 days PREDNISONE 20 MG ORAL TABLET 246399 PREDNISONE Inactive AZITHROMYCIN 250 MG ORAL TABLET 2 po qd x 1 day, then 1 po q d x 4 days AZITHROMYCIN 250 MG ORAL TABLET 478866 AZITHROMY GIOVANNI Inactive PREDNISONE 50 MG ORAL TABLET Take 50 mg dialy for 6 day s 7 PREDNISONE 50 MG ORAL TABLET 479387 PREDNISONE Inactive AUGMENTIN 875-125 MG ORAL TABLET 1 po BID x 10 days 18/04/16 AUGMENTIN 875-125 MG ORAL TABLET AMOXICILLIN-POT CLAVULANATE Inactive DOXYCYCLINE HYCLATE 100 MG ORAL CAPSULE 1 cap by mouth twice latasha ly DOXYCYCLINE HYCLATE 100 MG ORAL CAPSULE 8646196 DOXYCYCL INE HYCLATE Inactive PREDNISONE 20 MG ORAL TABLET Take 2 tabs day 1 and 2 and 1 t ab days 3 and 4 PREDNISONE 20 MG ORAL TABLET 163491 PREDNISONE Inactive AMOXICILLIN 500 MG ORAL CAPSULE 1 cap by mouth twice daily 10/21 AMOXICILLIN 500 MG ORAL CAPSULE 788374 AMOXICILLIN Inactive TRIAMCINOLONE ACETONIDE 0.1 % EXTERNAL OINTMENT Apply to affected areas TID PRN Rash/Itching for up 2 weeks TRIAMCINOLON E ACETONIDE 0.1 % EXTERNAL OINTMENT 7229216 TRIAMCINOLONE ACETONIDE Inactive ACYCLOVIR 800 MG ORAL TABLET 1 po 5 times daily x 7 days ACYCLOVIR 800 MG ORAL TABLET 545924 ACYCLOVIR Inactive Vital Signs Date Name Value [...] Panel - Chemistry sodium, serum 137 mmol/L 935-483 3918/10/08 carbon dioxide, venous blood 29.9 mmol/L 21.0-32 [...] 0.50 mg/dL 0.00-1.00 cholesterol, serum 324 mg/dL 150-218 3761/10/08 triglyceride, serum, fasting 130 mg/dL 30-200 HDL [...] negative Encounters Code Encounter Date Provider Facility CPT-[id number] Vst-Est Level IV 09:06:31 C ESAU Hu MD [facility] CPT-03240 Level 3 Est. Patient 14:16:41 CDT David lion [facility] CPT-91345 Level 3 Est. Patient 13:57:55 CDT David lion [facility] CPT-28498 Level 3 Est. Patient 16:08:07 CDT David lion [facility] CPT-75375 Level 3 Est. Patient 16:53:54 CDT May haas MD [facility] CPT-21717 [id number] Vst-Est Level IV 08:41:[address] Carlton Hu MD [facility] CPT-38239 Level 3 Est. Patient 09:46:49 COMMUTATOR PRESSER David Muñiz dle [facility]-40083 [id number] Vst-Est Level III 11:12:16 CDT Yanet uclidia Bess DO [facility] CPT-17513 Level 3 Est. Patient 11:34:49 COMMUTATOR PRESSER Perez Mora MD [facility] CPT-72343 Level 4 Est. Patient 09:51:32 COMMUTATOR PRESSER Carlton rich MD [facility] CPT-72210 Level 3 Est. Patient 10:26:00 COMMUTATOR PRESSER Elise Hitchcock [facility] CPT-77290 Level 3 Est. Patient 13:35:41 COMMUTATOR PRESSER Carlton rich MD [facility] CPT-69994 Level 3 Est. Patient 10:03:52 COMMUTATOR PRESSER Carlton rich MD [facility] CPT-69405 Level 3 Est. Patient 12:17:50 CDT Hugo Restrepo MD [facility] CPT-86302 Level 3 Est. Patient 13:42:38 CDT Elise stephenson [facility] CPT-31681 Level 3 Est. Patient 13:23:51 CDT Diya cobian [facility] CPT-57320 Level 3 Est. Patient 14:22:19 COMMUTATOR PRESSER Diya cobian [facility] CPT-24904 Level 3 Est. Patient 10:11:46 CDT [address] rich MD [facility] CPT-07711 Level 3 Est. Patient 17:29:43 CDT Elise Are ll [facility] CPT-96712 Level 3 Est. Patient 11:58:06 CDT Elise Hitchcock seema KHAN [facility] CPT-75045 Level 4 Est. Patient 14:36:51 CDT Carlton rich MD [facility]-83333 Level 3 Est. Patient 18:16:00 COMMUTATOR PRESSER Blaine Freeman [facility] CPT-05990 Level 3 Est. Patient 09:45:49 COMMUTATOR PRESSER Carlton rich MD [facility] CPT-33021 Level 3 Est. Patient 13:19:20 CDT Carlton rich MD [facility]-41505 Level 3 Est. Patient 13:06:43 CDT Ridge tam DO [facility] CPT-88758 Level 3 Est. Patient 10:03:07 CDT Perez Mora MD [facility] CPT-45792 Level 3 Est. Patient 19:50:35 COMMUTATOR PRESSER Carlton rich MD [facility] CPT-52678 Level 4 Est. Patient 18:05:01 COMMUTATOR PRESSER Carlton rich MD [facility] CPT-00335 Level 3 Est. Patient 10:45:55 COMMUTATOR PRESSER Hugo Restrepo MD [facility] CPT-28748 Level 3 Est. Patient 14:12:49 CDT Griffin lincoln [facility] CPT-66234 Level 3 Est. Patient 17:37:24 CDT Carlton rich MD [facility] CPT-47309 Level 3 Est. Patient 16:51:54 CDT Carlton rich MD [facility] CPT-81220 Level 3 Est. Patient 12:18:11 CDT Hugo Restrepo MD [facility]-96241 Level 3 Est. Patient 11:30:25 CDT Marcy crisostomo MD PhD [facility] CPT-40904 Level 3 Est. Patient 12:00:47 COMMUTATOR PRESSER Carlton rich MD [facility] CPT-71069 Level 3 Est. Patient 16:31:06 COMMUTATOR PRESSER Carlton rich MD [facility] CPT-34080 Level 3 Est. Patient 16:23:24 COMMUTATOR PRESSER Ridge tam [facility] CPT-18986 Level 3 Est. Patient 12:34:12 CDT Carlton rich MD [facility] CPT-74245 Level 2 Est. Patient 15:43:33 CDT Robi armstrong MD [facility] CPT-60651 Level 4 Est. Patient 14:04:44 CDT Carlton rich MD [facility] CPT-78488 Level 3 Est. Patient 05:47:59 CDT Ridge tam [facility] CPT-36109 Level 3 Est. Patient 13:12:53 COMMUTATOR PRESSER Carlton rich MD [facility] CPT-72226 Level 3 Est. Patient 14:26:53 CDT Hugo Restrepo MD [facility] Procedures Code Procedure Name Date Entry Date Standard Desc ription CPT-91475 Venipuncture Draw Fee 15:53:34 CDT CPT-000 Give Appropriate Flu Vaccine 14:14:31 CDT CPT-J1040 Depo Medrol 80 mg (Methyl Prednisolone A cetate) 10:42:44 CDT CPT-J1100 Decadron 8mg (Dexamethasone) 10:42:44 CDT 2 CPT-J0696 Rocephin 1gm Inj Solr 14:32:13 CDT CPT-J1020 Depo Medrol 60 mg (Methyl Prednisolone A cetate) 14:32:13 CDT CPT-J1100 Decadron 6mg (Dexamethasone) 14:32:13 CDT 2 CPT-71194 Hip bilat min 2V w AP pelvis 13:16:20 CDT 2 CPT-98112 Pelvis only 13:07:33 CDT CPT-81236 Spec Collection and Handling Fee 11:25:12 C DT CPT-00796 Fluzone Quadrivalent Intramuscular Suspe nsion 0.5 ML 14:31:55 CDT CPT-67691 Abx/Therapy Injection 13:28:47 COMMUTATOR PRESSER CPT-J2930 Solu Medrol 125 mg (Methyl Prednisolone Sodium Succinate) 12:00:47 COMMUTATOR PRESSER CPT-09274 Venipuncture Draw Fee 11:33:31 CDT CPT-18465 EKG Trac and Interp 11:21:09 CDT CPT-32058 Chest 2V Frontal and Lat 11:21:09 CDT 12/15 CPT-02110 Venipuncture Draw Fee 08:02:34 CDT CPT-13952 Chest 2V Frontal and Lat 05:47:59 CDT 06/05
--- OUTSIDE RECORDS SUMMARY | 2019-10-08 09:55 | XMS REPORT | Clinical Summary ---
Author Author Caitlin, Juliana Martinez Organization [facility] Address Unknown Phone Unavailable Allergies, Adverse [...] (without mention of hemorrhage) HYPERLIPIDEMIA 272.4 Active Cralton Hu MD Other and unspecified hyperlipidemia HEALTH [...] Headache Preventive health care V70.0 Active Carlton bustamnate MD Routine general medical examination at a [...] URI 465.9 Inactive Ridge Bess DO Ac inupiat upper respiratory infections of unspecified site Body Mass Index 35.0-35.9 Adult Refinement 2017 Ridge Bess DO Body Mass Index 35.0-35.9, adult BMI 34-34.9 Refinement Cherelle Torres RN Body Mass Index 35.0-35.9, adult BMI 35-35.9 Refinement David Marianneamisha RICEN Body Mass Index 35.0-35.9, adult BMI 34-34.9 Refinement May Vivar MD Body Mass Index 35.0-35.9, adult BMI 35-35.9 Refinement David Marianne NETWORKING ENGINEER Body Mass Index 35.0-35.9, adult BMI 33-33.9 Active David Marianne NETWORKING ENGINEER Body Mass Index 35.0-35.9, adult Upper respiratory [...] Acute pharyngitis Shingles 053.9 Active David Marianne NETWORKING ENGINEER Herpes zoster without mention of complication Allergic [...] Status Provider Patient Instruction TOPIRAMATE 100 MG TABS TAKE 1 TABLET BY MOUTH TWICE DAILY 1 TOPIRAMATE 87254082713 Active Carlton Hu MD Active ATORVASTATIN CALCIUM 10 MG ORAL TABLET 1 pill by mouth night ly, for cholesterol ATORVASTATIN CALCIUM 03606266004 Active Columba Parrish Active TRIAMCINOLONE ACETONIDE 0.1 % EXTERNAL CREAM apply bid spari ngly to rash TRIAMCINOLONE ACETONIDE 46471513539 No Longer Active Carlton Hu MD Active TYLENOL WITH CODEINE #3 300-30 MG ORAL TABLET ACETAMINOPHEN-CODEINE 58292365320 No Longer Active Carlton Hu MD Active TYLENOL WITH CODEINE #3 300-30 MG ORAL TABLET 1-2 po q6hr PRN Pa in ACETAMINOPHEN-CODEINE 34764057022 No Longer Active David Lopes AP RN Active ACYCLOVIR 800 MG ORAL TABLET 1 po 5 times daily x 7 days ACYCLOVIR 36492362989 No Longer Active David Lopes NETWORKING ENGINEER Active TOPAMAX 100 MG ORAL TABLET 1 by mouth twice daily TOPIRAMATE 07849242331 Active Carlton Hu MD Active TRIAMCINOLONE ACETONIDE 0.1 % EXTERNAL OINTMENT Apply to affected areas TID PRN Rash/Itching for up 2 weeks TRIAMCINOLONE ACETON KAYLA 77915947676 No Longer Active David Mraianne NETWORKING ENGINEER Active AMOXICILLIN 500 MG ORAL CAPSULE 1 cap by mouth twice daily 10/21 AMOXICILLIN 60072158631 No Longer Active David Marianne NETWORKING ENGINEER Active ELMIRON 100 MG ORAL CAPSULE 2 capsules in the morning and 1 capsule at night PENTOSAN POLYSULFATE SODIUM 98082264011 Active Cinthia H art PET WALKER Active CYMBALTA 30 MG ORAL CAPSULE DELAYED RELEASE PARTICLES 1 cap by mouth daily for depression DULOXETINE HCL 46901058643 No Longer Active Carlton Hu MD Active CYMBALTA 60 MG ORAL CAPSULE DELAYED RELEASE PARTICLES 1 cap by mouth daily for mood and pain DULOXETINE HCL 83965315823 Active Carlton Hu MD Active TUSSIONEX PENNKINETIC ER 10-8 MG/5ML ORAL SUSPENSION E XTENDED RELEASE 5ml po q12hr PRN Cough HYDROCOD POLST-CHLORPHEN POLST 62519916664 Active Carlton Hu MD Active PREDNISONE 20 MG ORAL TABLET Take 2 tabs day 1 and 2 and 1 t ab days 3 and 4 PREDNISONE 18201426341 No Longer Active David Lopes APRN Active DOXYCYCLINE HYCLATE 100 MG ORAL CAPSULE 1 cap by mouth twice latasha ly DOXYCYCLINE HYCLATE 55223930011 No Longer Active David Lopes APRN Active TOPAMAX 100 MG ORAL TABLET Take 1 tablet po bid TOPIRAMATE 92625802499 No Longer Active David Marianne NETWORKING ENGINEER Active TUSSIONEX PENNKINETIC ER 10-8 MG/5ML ORAL SUSPENSION E XTENDED RELEASE 5ml po q12hr PRN Cough HYDROCOD POLST-CHLORPHEN POLST 5 4589101533 No Longer Active David Marianne NETWORKING ENGINEER Active AUGMENTIN 875-125 MG ORAL TABLET 1 po BID x 10 days 18/04/16 AMOXICILLIN-POT CLAVULANATE 43234652004 No Longer Active David Lopes APRN Active PREDNISONE 50 MG ORAL TABLET Take 50 mg dialy for 6 day s 7 PREDNISONE 91288810115 No Longer Active David Marianne NETWORKING ENGINEER Active TUSSIONEX PENNKINETIC ER 10-8 MG/5ML ORAL SUSPENSION E XTENDED RELEASE 5ml po q12hr PRN Cough HYDROCOD POLST-CHLORPHEN POLST 5 2618201016 No Longer Active Cherelle Torres RN Active PREDNISONE 20 MG ORAL TABLET two tabs by mouth today, then one tab by mouth days two and three and four PREDNISONE 95670052807 No Lo nger Active Cherelle Torres RN Active AZITHROMYCIN 250 MG ORAL TABLET 2 po qd x 1 day, then 1 po q d x 4 days AZITHROMYCIN 20599310486 No Longer Active Ridge Bess DO Active PREDNISONE 20 MG ORAL TABLET 2 po qd x 5 days P REDNISONE 03845176939 No Longer Active Perez Mora MD Active PROAIR HFA 108 (90 BASE) MCG/ACT INHALATION AEROSOL SO LUTION 2 puffs four times a day as needed ALBUTEROL SULFATE 69468654824 No Long er Active Becky FUENTES Active ASPIRIN 81 MG ORAL TABLET 1 po qd ASPIRIN 35610752551 Active Carlton Hu MD Active PREDNISONE 20 MG ORAL TABLET 1 tab twice daily for 3 d ay, then one daily for three days PREDNISONE 19673140598 No Longer Active Carlton Hu MD Active AUGMENTIN 875-125 MG ORAL TABLET 1 po BID x 10 days 20 16/03/22 AMOXICILLIN-POT CLAVULANATE 83547662028 No Longer Active Elise Garcia APRN Active TERBINAFINE HCL 250 MG ORAL TABLET 1 qDay for nail fungus 7 TERBINAFINE HCL 51578856222 No Longer Active Carlton Hu MD A ctive AMOXICILLIN 500 MG ORAL CAPSULE 1 cap by mouth three times a day AMOXICILLIN 84316340853 No Longer Active Carlton Hu MD Active ELMIRON 100 MG ORAL CAPSULE 2 tablets in the am and 1 tablet at hs PENTOSAN POLYSULFATE SODIUM 19871907778 No Longer Active Robert jade Hu MD Active MUCINEX D 60-600 MG ORAL TABLET EXTENDED RELEASE 12 HOUR 1 t ab po q am PSEUDOEPHEDRINE-GUAIFENESIN 57620335113 No Longer Act nael Carlton Hu MD Active MUCINEX DM MAXIMUM STRENGTH 60-1200 MG ORAL TABLET EXT ENDED RELEASE 12 HOUR 1 tab po q am DEXTROMETHORPHAN-GUAIFENESIN 68975177021 No Longer Active Carlton Hu MD Active TUSSIONEX PENNKINETIC ER 10-8 MG/5ML ORAL SUSPENSION E XTENDED RELEASE 5ml po q12hr PRN Cough HYDROCOD POLST-CHLORPHEN POLST 5 5622875620 No Longer Active Cralton Hu MD Active POTASSIUM CHLORIDE ER 20 MEQ ORAL TABLET EXTENDED RELE ASE Take 1 by mouth 4 times daily for 7 days POTASSIUM CHLORIDE 84542110608 No Longer Active Carlton Hu MD Active ZITHROMAX 250 MG ORAL TABLET 2 po today, then 1 po q days 2-5 14/09/04 AZITHROMYCIN 41695587848 No Longer Active Elise Garcia APRN Active TUSSIONEX PENNKINETIC ER 10-8 MG/5ML ORAL SUSPENSION E XTENDED RELEASE 5 ml twice a day as needed for cough HYDROCOD POLST-CHLORPH EN POLST 87855501539 No Longer Active Elise Garcia APRN Active MONTELUKAST SODIUM 10 MG ORAL TABLET 1 po daily for Allergy MONTELUKAST SODIUM 60370805798 Active Carlton Hu MD Ac tive TUSSIONEX PENNKINETIC ER 10-8 MG/5ML ORAL SUSPENSION E XTENDED RELEASE 5ml po q12hr PRN Cough HYDROCOD POLST-CHLORPHEN POLST 5 0019886397 No Longer Active Hugo Restrepo MD Active GABAPENTIN 100 MG ORAL CAPSULE 1 po BID for fibromyalgia GABAPENTIN 95851823459 Active ALFREDO Holly Active LYRICA 100 MG ORAL CAPSULE Take 1 tab po BID for fibromyalgia 20 11/08/21 PREGABALIN 39975646249 No Longer Active Elise Garcia APRN A ctive PREDNISONE 20 MG ORAL TABLET 2 tabs daily for 3 days, 1 tab daily for 3 days, 1/2 tab daily for 2 days PREDNISONE 35491068553 No Longer Active Jillina Frazell NETWORKING ENGINEER Active TUSSIONEX PENNKINETIC ER 10-8 MG/5ML ORAL SUSPENSION E XTENDED RELEASE 5 mL PO q 12 hrs PRN cough HYDROCOD POLST-CHLORPHEN POLST 200237 44592 No Longer Active Jillina Frazell NETWORKING ENGINEER Active FLUTICASONE PROPIONATE 50 MCG/ACT NASAL SUSPENSION 2 s prays each nostril daily until bottle is empty FLUTICASONE PROPIONATE 698604459 99 No Longer Active Jillina Frazell NETWORKING ENGINEER Active ASMANEX 60 METERED DOSES 220 MCG/INH INHALATION AEROSO L POWDER BREATH ACTIVATED 1 puff bid with rinse after MOMETASONE FUROATE 1681968 4102 No Longer Active Jillina Frazell NETWORKING ENGINEER Active ZITHROMAX Z-REYNA 250 MG ORAL TABLET 2 today, then 1 daily for 4 d ays AZITHROMYCIN 03209468876 No Longer Active Elise Garcia NETWORKING ENGINEER Active TUSSIONEX PENNKINETIC ER 10-8 MG/5ML ORAL SUSPENSION E XTENDED RELEASE 5ml po q12hr PRN Cough HYDROCOD POLST-CHLORPHEN POLST 5 6113962308 No Longer Active Elise Garcia APRN Active PREDNISONE 20 MG ORAL TABLET 2 tabs daily for 3 days, 1 tab daily for 3 days, 1/2 tab daily for 2 days PREDNISONE 20963002783 No Longer Active Jillina Frazell NETWORKING ENGINEER Active AMOXICILLIN 500 MG ORAL CAPSULE 2 po BID x 10 days 201 09/29/08 AMOXICILLIN 31255474207 No Longer Active Diya De Guzman APRN Act nael SINGULAIR 10 MG ORAL TABLET 1 po qday for allergies 20 14/01/12 MONTELUKAST SODIUM 08468429885 No Longer Active Carlton Hu MD Active LEVAQUIN 500 MG ORAL TABLET 1 tablet by mouth daily 20 13/09/24 LEVOFLOXACIN 68105394503 No Longer Active Carlton Hu MD Acti ve FLUTICASONE PROPIONATE 50 MCG/ACT NASAL SUSPENSION 2 s prays each nostril daily for 2 weeks, then 1 spray each nostril daily. FLUTICASONE PROPIONATE 66187052450 Active Carlton Hu MD Active ZITHROMAX 250 MG ORAL TABLET 2 po today, then 1 po q days 2-5 20 13/08/10 AZITHROMYCIN 48955404711 No Longer Active Elise Garcia APRN Active XANAX 0.5 MG ORAL TABLET one tablet by mouth daily prn anxiety 2015 ALPRAZOLAM 61781817006 Active ALFREDO Holly Active CEFDINIR 300 MG ORAL CAPSULE 1 po BID x 10 days CEFDINIR 23951552202 No Longer Active Carlton Hu MD Active ZOCOR 40 MG ORAL TABLET 1 tab by mouth daily SI MVASTATIN 16807171990 No Longer Active Carlton Hu MD Active CYCLOBENZAPRINE HCL 10 MG ORAL TABLET 1 tablet by mouth BID prn had pain CYCLOBENZAPRINE HCL 36465975471 No Longer Active Jayden Hu MD Active LEVOFLOXACIN 500 MG ORAL TABLET 1 tab PO daily x 10 days LEVOFLOXACIN 59140545484 No Longer Active Carlton Hu MD Acti ve PREDNISONE 20 MG ORAL TABLET 3 tab PO qd x 2d, 2 tab P O qd x 2d, 1 tab PO qd x 2d, 1/2 tab PO qd x 2d PREDNISONE 91780271518 No Lo nger Active Carlton Hu MD Active FLUTICASONE PROPIONATE 50 MCG/ACT NASAL SUSPENSION 1 t o 2 sprays each nostril daily FLUTICASONE PROPIONATE 04909654182 No Longer Ac tive Blaine HERNANDEZ Active CHERATUSSIN AC 100-10 MG/5ML ORAL SYRUP 1 tsp by mouth every 4 hours as needed for cough GUAIFENESIN-CODEINE 49840312084 No Longe r Active Blaine HERNANDEZ Active PROMETHAZINE-CODEINE 6.25-10 MG/5ML ORAL SYRUP 1 tsp b y mouth every 6 hours if needed for cough PROMETHAZINE-CODEINE 81694608466 No Longer Active Blaine HERNANDEZ Active CHERATUSSIN AC 100-10 MG/5ML ORAL SYRUP 1 tsp by mouth every 4 hours as needed for cough GUAIFENESIN-CODEINE 73454917563 No Longe r Active Blaine HERNANDEZ Active ZITHROMAX Z-REYNA 250 MG ORAL TABLET 2 today, then 1 daily for 4 d ays AZITHROMYCIN 77503271517 No Longer Active Columba Raida Act nael ZITHROMAX 250 MG ORAL TABLET 2 po today, then 1 po q days 2-5 20 14/03/21 AZITHROMYCIN 45883288454 No Longer Active Carlton Hu MD Active ZITHROMAX Z-REYNA 250 MG ORAL TABLET 2 today, then 1 daily for 4 d ays AZITHROMYCIN 24740013579 No Longer Active Columba Raida Act nael AUGMENTIN 875-125 MG ORAL TABLET 1 po BID x 10 days 13/01/20 AMOXICILLIN-POT CLAVULANATE 37555633161 No Longer Active Diya De Guzman APRN Active ZITHROMAX 250 MG ORAL TABLET 2 po today, then 1 po q days 2-5 20 12/08/14 AZITHROMYCIN 09112552577 No Longer Active Carlton Hu MD Active TRAMADOL HCL 50 MG ORAL TABLET 1 po tid with ES Tylenol TRAMADOL HCL 00355752105 Active ALFREDO Holly Active PREMARIN 0.625 MG ORAL TABLET TAKE 1 TAB BY MOUTH DAILY ESTROGENS CONJUGATED 63305027086 No Longer Active Ridge Bess DO A ctive CYMBALTA 30 MG ORAL CAPSULE DELAYED RELEASE PARTICLES 1 cap by mouth daily DULOXETINE HCL 90187345915 No Longer Active Ridge tam DO Active AMOXICILLIN 500 MG ORAL CAPSULE 1 tab by mouth 3 times daily x 10 days AMOXICILLIN 85462610092 No Longer Active Carlton bustamante MD Active AMOXICILLIN 500 MG ORAL CAPSULE 1 tab by mouth 3 times daily x 10 days AMOXICILLIN 96263286677 No Longer Active Carlton bustamante MD Active PROMETHAZINE-CODEINE 6.25-10 MG/5ML ORAL SYRUP 1 tsp b y mouth every 8 hours prn cough PROMETHAZINE-CODEINE 11533493864 No Longer Acti ve Carlton Hu MD Active MEDROL 4 MG ORAL TABLET THERAPY PACK 6 pills x 1 day, then 5 pills x 1 day then 4 pills x 1 day, then 3 pills x 1 day, then 2 pills x 1 day, then 1 pill x 1 day, then stop METHYLPREDNISOLONE 15762235015 No Long er Active Perez Mora MD Active AZITHROMYCIN 250 MG ORAL TABLET 2 po qd x 1 day, then 1 po q d x 4 days AZITHROMYCIN 85389279292 No Longer Active Perez Ambriz MD Active SYMBICORT 160-4.5 MCG/ACT INHALATION AEROSOL 2 puffs bid wit h rinse after BUDESONIDE-FORMOTEROL FUMARATE 60248692653 N o Longer Active Perez Mora MD Active LYRICA 75 MG ORAL CAPSULE TAKE 1 CAPSULE BY MOUTH TWICE DAILY PREGABALIN 44779003122 No Longer Active Carlton Hu MD Acti ve TOPAMAX 25 MG ORAL TABLET 1 qHS x 1 week, then 1 BID x 1 week, then 1 qAM and 2 qHS x 1 week, then 2 BID (migraine prevention) T OPIRAMATE 43836734552 No Longer Active Jerica FUENTES Active TOPAMAX 50 MG ORAL TABLET take 1 tab po BID for migraines. 07/02 TOPIRAMATE 20381588635 No Longer Active Jerica Jonesmerissaerica ALFREDO Active TRIAMCINOLONE ACETONIDE 0.1 % EXTERNAL CREAM apply three roegr es daily prn rash TRIAMCINOLONE ACETONIDE 80871412493 No Longer Active Carlton Hu MD Active PAXIL 40 MG ORAL TABLET take 1 tab po qday for depression 0 PAROXETINE HCL 76167494628 Active Carlton Hu MD Active CHERATUSSIN AC 100-10 MG/5ML ORAL SYRUP 5ml po q6hr PRN Cough 20 13/04/14 GUAIFENESIN-CODEINE 36210058530 No Longer Active Carlton Hu MD Active MEDROL 4 MG ORAL TABLET THERAPY PACK 6 tabs on day 1, 5 tabs on day 2, 4 tabs on day 3, 3 tabs on day 4, 2 tabs on day 5, 1 tab on day 6 2013 METHYLPREDNISOLONE 82567618337 No Longer Active Perez Mora MD Active AZITHROMYCIN 250 MG ORAL TABLET 2 po qd x 1 day, then 1 po q d x 4 days AZITHROMYCIN 91871492799 No Longer Active Perez Ambriz MD Active PROPRANOLOL HCL 60 MG ORAL TABLET 1 PO Q D PROPRANOLOL HCL 23547565660 No Longer Active Perez Mora MD Activ e CHERATUSSIN AC 100-10 MG/5ML ORAL SYRUP take one tsp po Q 6h ours prn cough GUAIFENESIN-CODEINE 02555932378 No Longer Active Zia Mora MD Active AUGMENTIN 875-125 MG ORAL TABLET 1 tab by mouth twice daily with food AMOXICILLIN-POT CLAVULANATE 75199821618 No Longer Act nael Perez Mora MD Active CHERATUSSIN AC 100-10 MG/5ML ORAL SYRUP 1 tsp by mouth every 4 hours as needed for cough GUAIFENESIN-CODEINE 77868014311 No Longe r Active Hugo Restrepo MD Active ACETAMINOPHEN-CODEINE #3 300-30 MG ORAL TABLET 1 PO Q 4-6 HRS ID N PAIN ACETAMINOPHEN-CODEINE 56996859426 No Longer Active Hugo Restrepo MD Active LEVAQUIN 500 MG ORAL TABLET take one po QD LEVO FLOXACIN 63550799902 No Longer Active Griffin HERNANDEZ Active PREDNISONE 20 MG ORAL TABLET Take 3 tabs daily for 3 d ays, 2 tabs daily for 3 days, 1 tab daily for 3 days, 1/2 tab daily for 3 days 11/07 PREDNISONE 80153245860 No Longer Active Carlton Hu MD Acti ve AVELOX 400 MG ORAL TABLET 1 tab by mouth daily MOXIFLOXACIN HCL 62114277267 No Longer Active Carlton Hu MD Active CHERATUSSIN AC 100-10 MG/5ML ORAL SYRUP 1 tsp by mouth every 4 hours as needed for cough GUAIFENESIN-CODEINE 48864125944 No Longe r Active Hugo Restrepo MD Active AVELOX 400 MG ORAL TABLET 1 tab by mouth daily MOXIFLOXACIN HCL 64153628760 No Longer Active Marcy De La Rosa MD PhD Active TERBINAFINE HCL 250 MG ORAL TABLET 1 qDay T ERBINAFINE HCL 37238860801 No Longer Active Marcy De La Rosa MD PhD Active CHERATUSSIN AC 100-10 MG/5ML ORAL SYRUP 1 tsp by mouth every 4 hours as needed for cough GUAIFENESIN-CODEINE 84603584660 No Longe r Active Marcy De La Rosa MD PhD Active AVELOX 400 MG ORAL TABLET 1 tab by mouth daily MOXIFLOXACIN HCL 14582809792 No Longer Active Marcy De La Rosa MD PhD Active HYDROCODONE-ACETAMINOPHEN 5-325 MG ORAL TABLET 1 po q 6hr PRN co ugh HYDROCODONE-ACETAMINOPHEN 94603832678 No Longer Active Marcy De La Rosa MD PhD Active PREDNISONE 20 MG ORAL TABLET 2 tabs daily for 3 days, 1 tab daily for 3 days, 1/2 tab daily for 2 days PREDNISONE 41372665061 No Longer Active Carlton Hu MD Active CEFDINIR 300 MG ORAL CAPSULE by mouth twice a day 2011 CEFDINIR 21281461836 No Longer Active Carlton Hu MD Acti ve HYDROCHLOROTHIAZIDE 25 MG ORAL TABLET 1 TAB PO DAILY HYDROCHLOROTHIAZIDE 26426151482 Active Carlton Hu MD A ctive ACETAMINOPHEN-CODEINE #3 300-30 MG ORAL TABLET 1 tablet po q 4-6 hrs prn pain ACETAMINOPHEN-CODEINE 97778083780 No Longer Active Ridge Bess DO Active ZITHROMAX 250 MG ORAL TABLET 2 po today, then 1 po q days 2-5 20 03/07/07 AZITHROMYCIN 30201745928 No Longer Active Carlton Hu MD Active CHERATUSSIN AC 100-10 MG/5ML ORAL SYRUP take 1 tsp po q4-6 h ours prn cough GUAIFENESIN-CODEINE 26804895236 No Longer Active Jayden Hu MD Active ACETAMINOPHEN-CODEINE #3 300-30 MG ORAL TABLET 1 PO Q 4-6 HR PRN PAIN ACETAMINOPHEN-CODEINE 44569595204 No Longer Active Da raimundo Hu MD Active LORTAB 7.5-500 MG/15ML ORAL ELIXIR 7.5 ml po q 4 hour prn cough HYDROCODONE-ACETAMINOPHEN 09106358193 No Longer Active Carlton Hu MD Active PREDNISONE 20 MG ORAL TABLET 1 po bid 3 days, then 1 po q day 3 days PREDNISONE 96103166297 No Longer Active Carlton Hu MD Active CEFDINIR 300 MG ORAL CAPSULE by mouth twice a day 2011 CEFDINIR 25308253970 No Longer Active Carlton Hu MD Acti ve CEFDINIR 300 MG ORAL CAPSULE by mouth twice a day 2010 CEFDINIR 82347984788 No Longer Active Carlton Hu MD Acti ve CEFDINIR 300 MG ORAL CAPSULE by mouth twice a day 2010 CEFDINIR 42316382009 No Longer Active Carlton Hu MD Acti ve TESSALON PERLES 100 MG ORAL CAPSULE 1 tablet by mouth 3 times daily as needed for cough BENZONATATE 54614705398 No Longer Active Carlton Hu MD Active CEFDINIR 300 MG ORAL CAPSULE by mouth twice a day 2010 CEFDINIR 65227346094 No Longer Active Carlton Hu MD Acti ve ZITHROMAX Z-REYNA 250 MG ORAL TABLET 2 today, then 1 daily for 4 d ays AZITHROMYCIN 98871882409 No Longer Active Hugo Restrepo MD Active TESSALON PERLES 100 MG ORAL CAPSULE 1 tablet by mouth 3 times daily as needed for cough TESSALON PERLES 100 MG ORAL CAPSULE 50357 7 BENZONATATE Inactive PREDNISONE 20 MG ORAL TABLET 1 po bid 3 days, then 1 po q day 3 days PREDNISONE 20 MG ORAL TABLET 896720 PREDNISONE Greer ctive LORTAB 7.5-500 MG/15ML ORAL ELIXIR 7.5 ml po q 4 hour prn cough LORTAB 7.5-500 MG/15ML ORAL ELIXIR HYDROCODONE-A CETAMINOPHEN Inactive ACETAMINOPHEN-CODEINE #3 300-30 MG ORAL TABLET 1 PO Q 4-6 HR PRN PAIN ACETAMINOPHEN-CODEINE #3 300-30 MG ORAL TABLET 9 36493 ACETAMINOPHEN-CODEINE Inactive CHERATUSSIN AC 100-10 MG/5ML ORAL SYRUP take 1 tsp po q4-6 h ours prn cough CHERATUSSIN AC 100-10 MG/5ML ORAL SYRUP 214880 GUAIFENESIN-CODEINE Inactive ACETAMINOPHEN-CODEINE #3 300-30 MG ORAL TABLET 1 tablet po q 4-6 hrs prn pain ACETAMINOPHEN-CODEINE #3 300-30 MG ORAL TABLET 406418 ACETAMINOPHEN-CODEINE Inactive HYDROCODONE-ACETAMINOPHEN 5-325 MG ORAL TABLET 1 po q 6hr PRN co ugh HYDROCODONE-ACETAMINOPHEN 5-325 MG ORAL TABLET 120906 HYDROCODONE-ACETAMINOPHEN Inactive AVELOX 400 MG ORAL TABLET 1 tab by mouth daily AVELOX 400 MG ORAL TABLET MOXIFLOXACIN HCL Inactive CHERATUSSIN AC 100-10 MG/5ML ORAL SYRUP 1 tsp by mouth every 4 hours as needed for cough CHERATUSSIN AC 100-10 MG/5ML ORAL SYRUP 9 64302 GUAIFENESIN-CODEINE Inactive TERBINAFINE HCL 250 MG ORAL TABLET 1 qDay 07/08 TERBINAFINE HCL 250 MG ORAL TABLET 672198 TERBINAFINE HCL Inactive CHERATUSSIN AC 100-10 MG/5ML ORAL SYRUP 1 tsp by mouth every 4 hours as needed for cough CHERATUSSIN AC 100-10 MG/5ML ORAL SYRUP 9 66203 GUAIFENESIN-CODEINE Inactive ACETAMINOPHEN-CODEINE #3 300-30 MG ORAL TABLET 1 PO Q 4-6 HRS ID N PAIN ACETAMINOPHEN-CODEINE #3 300-30 MG ORAL TABLET 359972 ACETAMINOPHEN-CODEINE Inactive CHERATUSSIN AC 100-10 MG/5ML ORAL SYRUP 1 tsp by mouth every 4 hours as needed for cough CHERATUSSIN AC 100-10 MG/5ML ORAL SYRUP 9 49964 GUAIFENESIN-CODEINE Inactive AUGMENTIN 875-125 MG ORAL TABLET 1 tab by mouth twice daily with food AUGMENTIN 875-125 MG ORAL TABLET AMOXICIL MADELINE-POT CLAVULANATE Inactive CHERATUSSIN AC 100-10 MG/5ML ORAL SYRUP take one tsp po Q 6h ours prn cough CHERATUSSIN AC 100-10 MG/5ML ORAL SYRUP 852155 GUAIFENESIN-CODEINE Inactive PROPRANOLOL HCL 60 MG ORAL TABLET 1 PO Q D PROPRANOLOL HCL 60 MG ORAL TABLET 389187 PROPRANOLOL HCL Inactive TOPAMAX 50 MG ORAL TABLET take 1 tab po BID for migraines. 07/02 TOPAMAX 50 MG ORAL TABLET 357551 TOPIRAMATE Inacti ve TOPAMAX 25 MG ORAL TABLET 1 qHS x 1 week, then 1 BID x 1 week, then 1 qAM and 2 qHS x 1 week, then 2 BID (migraine prevention) TOPAMAX 25 MG ORAL TABLET 414915 TOPIRAMATE Inactive LYRICA 75 MG ORAL CAPSULE TAKE 1 CAPSULE BY MOUTH TWICE DAILY LYRICA 75 MG ORAL CAPSULE 878952 PREGABALIN Inactive SYMBICORT 160-4.5 MCG/ACT INHALATION AEROSOL 2 puffs bid wit h rinse after SYMBICORT 160-4.5 MCG/ACT INHALATION AEROSOL BUDESONIDE- FORMOTEROL FUMARATE Inactive PROMETHAZINE-CODEINE 6.25-10 MG/5ML ORAL SYRUP 1 tsp b y mouth every 8 hours prn cough PROMETHAZINE-CODEINE 6.25-10 MG/ 5ML ORAL SYRUP 995280 PROMETHAZINE-CODEINE Inactive CYMBALTA 30 MG ORAL CAPSULE DELAYED RELEASE PARTICLES 1 cap by mouth daily CYMBALTA 30 MG ORAL CAPSULE DELAYED RELE ASE PARTICLES 743426 DULOXETINE HCL Inactive PREMARIN 0.625 MG ORAL TABLET TAKE 1 TAB BY MOUTH DAILY PREMARIN 0.625 MG ORAL TABLET ESTROGENS CONJUGATED Inactive CHERATUSSIN AC 100-10 MG/5ML ORAL SYRUP 1 tsp by mouth every 4 hours as needed for cough CHERATUSSIN AC 100-10 MG/5ML ORAL SYRUP 9 52433 GUAIFENESIN-CODEINE Inactive PROMETHAZINE-CODEINE 6.25-10 MG/5ML ORAL SYRUP 1 tsp b y mouth every 6 hours if needed for cough PROMETHAZINE-CODEINE 6.25-10 MG/5ML ORAL SYRUP 155503 PROMETHAZINE-CODEINE Inactive CHERATUSSIN AC 100-10 MG/5ML ORAL SYRUP 1 tsp by mouth every 4 hours as needed for cough CHERATUSSIN AC 100-10 MG/5ML ORAL SYRUP 9 36936 GUAIFENESIN-CODEINE Inactive FLUTICASONE PROPIONATE 50 MCG/ACT NASAL SUSPENSION 1 t o 2 sprays each nostril daily FLUTICASONE PROPIONATE 50 MCG/AC T NASAL SUSPENSION 0155161 FLUTICASONE PROPIONATE Inactive PREDNISONE 20 MG ORAL TABLET 3 tab PO qd x 2d, 2 tab P O qd x 2d, 1 tab PO qd x 2d, 1/2 tab PO qd x 2d PREDNISONE 20 MG ORAL TAB LET 443042 PREDNISONE Inactive LEVOFLOXACIN 500 MG ORAL TABLET 1 tab PO daily x 10 days LEVOFLOXACIN 500 MG ORAL TABLET 211316 LEVOFLOXACIN Inactive CYCLOBENZAPRINE HCL 10 MG ORAL TABLET 1 tablet by mouth BID prn had pain CYCLOBENZAPRINE HCL 10 MG ORAL TABLET 886634 CYCLOBENZAPRINE HCL Inactive ZOCOR 40 MG ORAL TABLET 1 tab by mouth daily 4 ZOCOR 40 MG ORAL TABLET 518415 SIMVASTATIN Inactive TUSSIONEX PENNKINETIC ER 10-8 MG/5ML [...] FLUTICASONE PROPIO EFE 50 MCG/ACT NASAL SUSPENSION 0844228 FLUTICASONE PROPIONATE Inactive TUSSIONEX PENNKINETIC ER 10-8 MG/5ML ORAL SUSPENSION E XTENDED RELEASE 5 mL PO q 12 hrs PRN cough TUSSIONEX PENNKINETI C ER 10-8 MG/5ML ORAL SUSPENSION EXTENDED RELEASE HYDROCOD POLST-CHLORPHEN POLST I nactive LYRICA 100 MG ORAL CAPSULE Take 1 tab po BID for fibromyalgia 20 11/08/21 LYRICA 100 MG ORAL CAPSULE 010847 PREGABALIN Inact nael TUSSIONEX PENNKINETIC ER 10-8 [...] three days PREDNISONE 20 MG ORAL TABLET 057957 PREDNIS ONE Inactive PROAIR HFA 108 (90 BASE) MCG/ACT INHALATION AEROSOL SO LUTION 2 puffs four times a day as needed PROAIR HFA 108 (90 B ASE) MCG/ACT INHALATION AEROSOL SOLUTION ALBUTEROL SULFATE Inactive PREDNISONE 20 MG ORAL TABLET two tabs by mouth today, then one tab by mouth days two and three and four PREDNISONE 20 MG ORAL TAB LET [id number] PREDNISONE Inactive TUSSIONEX PENNKINETIC ER 10-8 MG/5ML [...] bid 04/20 TOPAMAX 100 MG ORAL TABLET [id number] TOPIRAMATE Inactive CYMBALTA 30 MG ORAL CAPSULE DELAYED RELEASE PARTICLES 1 cap by mouth daily for depression CYMBALTA 30 MG ORAL CAPSULE DELAYED RELEASE PARTICLES [id number] DULOXETINE HCL Inactive TYLENOL WITH CODEINE #3 300-30 MG ORAL TABLET 1-2 po q6hr PRN Pa in TYLENOL WITH CODEINE #3 300-30 MG ORAL TABLET [id number] ACETAMINOPHEN-CODEINE Inactive TYLENOL WITH CODEINE #3 300-30 MG ORAL TABLET TYLENOL WITH CODEINE #3 300-30 MG ORAL TABLET [id number] ACETAMINOPHEN-CODEINE Inactive TRIAMCINOLONE ACETONIDE 0.1 % EXTERNAL CREAM apply bid spari ngly to rash TRIAMCINOLONE ACETONIDE 0.1 % EXTERNAL CREAM 101 4314 TRIAMCINOLONE ACETONIDE Inactive ZITHROMAX Z-REYNA 250 MG ORAL TABLET 2 today, then 1 daily for 4 d ays ZITHROMAX Z-REYNA 250 MG ORAL TABLET 596576 AZITHROMYCIN Inactive CEFDINIR 300 MG ORAL CAPSULE by mouth twice a day 2010 CEFDINIR 300 MG ORAL CAPSULE 522264 CEFDINIR Inactive CEFDINIR 300 MG ORAL CAPSULE by mouth twice a day 2010 CEFDINIR 300 MG ORAL CAPSULE 984000 CEFDINIR Inactive CEFDINIR 300 MG ORAL CAPSULE by mouth twice a day 2010 CEFDINIR 300 MG ORAL CAPSULE 607955 CEFDINIR Inactive CEFDINIR 300 MG ORAL CAPSULE by mouth twice a day 2011 CEFDINIR 300 MG ORAL CAPSULE 335153 CEFDINIR Inactive ZITHROMAX 250 MG ORAL TABLET 2 po today, then 1 po q days 2-5 20 03/07/07 ZITHROMAX 250 MG ORAL TABLET 820901 AZITHROMYCIN [facility] CEFDINIR 300 MG ORAL CAPSULE by mouth twice a day 2011 CEFDINIR 300 MG ORAL CAPSULE 300215 CEFDINIR Inactive PREDNISONE 20 MG ORAL TABLET 2 tabs daily for 3 days, 1 tab daily for 3 days, 1/2 tab daily for 2 days PREDNISONE 20 MG ORAL T ABLET 911556 PREDNISONE Inactive AVELOX 400 MG ORAL TABLET [...] days 11/07 PREDNISONE 20 MG ORAL TABLET 594601 PREDNISONE Inactive LEVAQUIN 500 MG ORAL TABLET take one po QD LEVAQUIN 500 MG ORAL TABLET 706510 LEVOFLOXACIN Inactive AZITHROMYCIN 250 MG ORAL TABLET 2 po qd x 1 day, then 1 po q d x 4 days AZITHROMYCIN 250 MG ORAL TABLET 005626 AZITHROMY GIOVANNI Inactive MEDROL 4 MG ORAL TABLET THERAPY PACK 6 tabs on day 1, 5 tabs on day 2, 4 tabs on day 3, 3 tabs on day 4, 2 tabs on day 5, 1 tab on day 6 2013 MEDROL 4 MG ORAL TABLET THERAPY PACK 488282 METHYLPREDNISOLONE [place] [facility] CHERATUSSIN AC 100-10 MG/5ML ORAL SYRUP 5ml po q6hr PRN Cough 20 13/04/14 CHERATUSSIN AC 100-10 MG/5ML ORAL SYRUP 016249 GUAIFENE SIN-CODEINE Inactive TRIAMCINOLONE ACETONIDE 0.1 % EXTERNAL CREAM apply three roger es daily prn rash TRIAMCINOLONE ACETONIDE 0.1 % EXTERNAL CREAM 101 4314 TRIAMCINOLONE ACETONIDE Inactive AZITHROMYCIN 250 MG ORAL TABLET 2 po qd x 1 day, then 1 po q d x 4 days AZITHROMYCIN 250 MG ORAL TABLET 520123 AZITHROMY IGOVANNI Inactive MEDROL 4 MG ORAL TABLET THERAPY PACK 6 pills x 1 day, then 5 pills x 1 day then 4 pills x 1 day, then 3 pills x 1 day, then 2 pills x 1 day, then 1 pill x 1 day, then stop MEDROL 4 MG ORAL TABLET THERAPY PACK 775533 METHYLPREDNISOLONE Inactive AMOXICILLIN 500 MG ORAL CAPSULE 1 tab by mouth 3 times daily x 10 days AMOXICILLIN 500 MG ORAL CAPSULE 174194 AMOXICILL IN Inactive AMOXICILLIN 500 MG ORAL CAPSULE 1 tab by mouth 3 times daily x 10 days AMOXICILLIN 500 MG ORAL CAPSULE 868478 AMOXICILL IN Inactive ZITHROMAX 250 MG ORAL TABLET 2 po today, then 1 po q days 2-5 20 12/08/14 ZITHROMAX 250 MG ORAL TABLET 368089 AZITHROMYCIN [place] [facility] AUGMENTIN 875-125 MG ORAL TABLET 1 po BID x 10 days 20 13/01/20 AUGMENTIN 875-125 MG ORAL TABLET AMOXICILLIN-POT CLAVULANATE Inactive ZITHROMAX Z-REYNA 250 MG ORAL TABLET 2 today, then 1 daily for 4 d ays ZITHROMAX Z-REYNA 250 MG ORAL TABLET 674316 AZITHROMYCIN Inactive ZITHROMAX 250 MG ORAL TABLET 2 po today, then 1 po q days 2-5 20 14/03/21 ZITHROMAX 250 MG ORAL TABLET 705703 AZITHROMYCIN [facility] ZITHROMAX Z-REYNA 250 MG ORAL TABLET 2 today, then 1 daily for 4 d ays ZITHROMAX Z-REYNA 250 MG ORAL TABLET 603125 AZITHROMYCIN Inactive CEFDINIR 300 MG ORAL CAPSULE 1 po BID x 10 days 06/21 CEFDINIR 300 MG ORAL CAPSULE 099643 CEFDINIR Inactive ZITHROMAX 250 MG ORAL TABLET 2 po today, then 1 po q days 2-5 20 13/08/10 ZITHROMAX 250 MG ORAL TABLET 527208 AZITHROMYCIN [place] [facility] LEVAQUIN 500 MG ORAL TABLET 1 tablet by mouth daily 13/09/24 LEVAQUIN 500 MG ORAL TABLET 806918 LEVOFLOXACIN Inactive SINGULAIR 10 MG ORAL TABLET 1 po qday for allergies 20 14/01/12 SINGULAIR 10 MG ORAL TABLET 140344 MONTELUKAST SODIUM Inactive AMOXICILLIN 500 MG ORAL CAPSULE 2 po BID x 10 days 201 09/29/08 AMOXICILLIN 500 MG ORAL CAPSULE 037808 AMOXICILLIN Inactive PREDNISONE 20 MG ORAL TABLET 2 tabs daily for 3 days, 1 tab daily for 3 days, 1/2 tab daily for 2 days PREDNISONE 20 MG ORAL T ABLET 478961 PREDNISONE Inactive ZITHROMAX Z-REYNA 250 MG ORAL TABLET 2 today, then 1 daily for 4 d ays ZITHROMAX Z-REYNA 250 MG ORAL TABLET 410333 AZITHROMYCIN Inactive PREDNISONE 20 MG ORAL TABLET 2 tabs daily for 3 days, 1 tab daily for 3 days, 1/2 tab daily for 2 days PREDNISONE 20 MG ORAL T ABLET 577615 PREDNISONE Inactive ZITHROMAX 250 MG ORAL TABLET 2 po today, then 1 po q days 2-5 20 14/09/04 ZITHROMAX 250 MG ORAL TABLET 326976 AZITHROMYCIN [facility] AMOXICILLIN 500 MG ORAL CAPSULE 1 cap by mouth three times a day AMOXICILLIN 500 MG ORAL CAPSULE 493750 AMOXICILLIN Inactive TERBINAFINE HCL 250 MG ORAL TABLET 1 qDay for nail fungus 7 TERBINAFINE HCL 250 MG ORAL TABLET 697443 TERBINAFINE HCL Inact nael AUGMENTIN 875-125 MG ORAL TABLET 1 po BID x 10 days 16/03/22 AUGMENTIN 875-125 MG ORAL TABLET AMOXICILLIN-POT CLAVULANATE Inactive PREDNISONE 20 MG ORAL TABLET 2 po qd x 5 days PREDNISONE 20 MG ORAL TABLET 187559 PREDNISONE Inactive AZITHROMYCIN 250 MG ORAL TABLET 2 po qd x 1 day, then 1 po q d x 4 days AZITHROMYCIN 250 MG ORAL TABLET 304741 AZITHROMY GIOVANNI Inactive PREDNISONE 50 MG ORAL TABLET Take 50 mg dialy for 6 day s 7 PREDNISONE 50 MG ORAL TABLET 935453 PREDNISONE Inactive AUGMENTIN 875-125 MG ORAL TABLET 1 po BID x 10 days 18/04/16 AUGMENTIN 875-125 MG ORAL TABLET AMOXICILLIN-POT CLAVULANATE Inactive DOXYCYCLINE HYCLATE 100 MG ORAL CAPSULE 1 cap by mouth twice latasha ly DOXYCYCLINE HYCLATE 100 MG ORAL CAPSULE 9073332 DOXYCYCL INE HYCLATE Inactive PREDNISONE 20 MG ORAL TABLET Take 2 tabs day 1 and 2 and 1 t ab days 3 and 4 PREDNISONE 20 MG ORAL TABLET 335846 PREDNISONE Inactive AMOXICILLIN 500 MG ORAL CAPSULE 1 cap by mouth twice daily 10/21 AMOXICILLIN 500 MG ORAL CAPSULE 754969 AMOXICILLIN Inactive TRIAMCINOLONE ACETONIDE 0.1 % EXTERNAL OINTMENT Apply to affected areas TID PRN Rash/Itching for up 2 weeks TRIAMCINOLON E ACETONIDE 0.1 % EXTERNAL OINTMENT 9638930 TRIAMCINOLONE ACETONIDE Inactive ACYCLOVIR 800 MG ORAL TABLET 1 po 5 times daily x 7 days ACYCLOVIR 800 MG ORAL TABLET 442450 ACYCLOVIR Inactive Vital Signs Date Name Value [...] Panel - Chemistry sodium, serum 137 mmol/L 931-716 4459/10/08 carbon dioxide, venous blood 29.9 mmol/L 21.0-32 [...] 0.50 mg/dL 0.00-1.00 cholesterol, serum 324 mg/dL [phone]/10/08 triglyceride, serum, fasting 130 mg/dL 30-200 HDL [...] negative Encounters Code Encounter Date Provider Facility CPT-52078 [id number] Vst-Est Level IV 09:06:31 C ESAU Hu MD [facility] CPT-64925 Level 3 Est. Patient 14:16:41 CDT David Tin dle [facility] CPT-62175 Level 3 Est. Patient 13:57:55 CDT David Tin dle [facility] CPT-12042 Level 3 Est. Patient 16:08:07 CDT David Tin dle [facility] CPT-46842 Level 3 Est. Patient 16:53:54 CDT May haas MD [facility] CPT-32543 [id number] Vst-Est Level IV 08:41:[address] Carlton Hu MD [facility] CPT-83375 Level 3 Est. Patient 09:46:49 SHAKE SPLITTER David Tin dle [facility] CPT-28197 [id number] Vst-Est Level III 11:12:16 CDT Yanet Bess DO [facility] CPT-23663 Level 3 Est. Patient 11:34:49 SHAKE SPLITTER Perez Mora MD [facility] CPT-31445 Level 4 Est. Patient 09:51:32 SHAKE SPLITTER Carlton rich MD [facility] CPT-60302 Level 3 Est. Patient 10:26:00 SHAKE SPLITTER Elise Are ll [facility] CPT-97507 Level 3 Est. Patient 13:35:41 SHAKE SPLITTER Carlton rich MD [facility] CPT-55069 Level 3 Est. Patient 10:03:52 SHAKE SPLITTER Carlton rich MD [facility] CPT-65115 Level 3 Est. Patient 12:17:50 CDT Hugo Restrepo MD [facility] CPT-72460 Level 3 Est. Patient 13:42:38 CDT Elise Are ll [facility] CPT-50745 Level 3 Est. Patient 13:23:51 CDT Diya cobian [facility] CPT-63845 Level 3 Est. Patient 14:22:19 SHAKE SPLITTER Diya cobian [facility] CPT-47711 Level 3 Est. Patient 10:11:46 CDT Carlton rich MD [facility]-86221 Level 3 Est. Patient 17:29:43 CDT Elise Are [facility] CPT-90658 Level 3 Est. Patient 11:58:06 CDT Elise Are [facility] CPT-60999 Level 4 Est. Patient 14:36:51 CDT Carlton rich MD [facility]-11361 Level 3 Est. Patient 18:16:00 SHAKE SPLITTER Blaine Freeman [facility] CPT-60434 Level 3 Est. Patient 09:45:49 SHAKE SPLITTER Carlton rich MD [facility] CPT-58332 Level 3 Est. Patient 13:19:20 CDT Carlton rich MD [facility] CPT-03286 Level 3 Est. Patient 13:06:43 CDT Ridge tam DO [facility] CPT-79804 Level 3 Est. Patient 10:03:07 CDT Perez Mora MD [facility] CPT-71858 Level 3 Est. Patient 19:50:35 SHAKE SPLITTER Carlton rich MD [facility] CPT-73213 Level 4 Est. Patient 18:05:01 SHAKE SPLITTER Carlton rich MD [facility] CPT-13399 Level 3 Est. Patient 10:45:55 SHAKE SPLITTER Hugo Restrepo MD [facility]-53263 Level 3 Est. Patient 14:12:49 CDT Griffin lincoln [facility]-22663 Level 3 Est. Patient 17:37:24 CDT Carlton rich MD [facility] CPT-27332 Level 3 Est. Patient 16:51:54 CDT Carlton rich MD [facility] CPT-02899 Level 3 Est. Patient 12:18:11 CDT Hugo Restrepo MD [facility] CPT-31225 Level 3 Est. Patient 11:30:25 CDT Marcy crisostomo MD PhD [facility] CPT-55690 Level 3 Est. Patient 12:00:47 SHAKE SPLITTER Carlton rich MD [facility] CPT-69879 Level 3 Est. Patient 16:31:06 SHAKE SPLITTER Carlton rich MD [facility] CPT-17612 Level 3 Est. Patient 16:23:24 SHAKE SPLITTER Ridge tam [facility] CPT-13827 Level 3 Est. Patient 12:34:12 CDT Carlton rich MD [facility] CPT-22922 Level 2 Est. Patient 15:43:33 CDT Robi armstrong MD [facility] CPT-83368 Level 4 Est. Patient 14:04:44 CDT Carlton rich MD [facility] CPT-26362 Level 3 Est. Patient 05:47:59 CDT Ridge tam [facility] CPT-47634 Level 3 Est. Patient 13:12:53 SHAKE SPLITTER Carlton rich MD [facility] CPT-17246 Level 3 Est. Patient 14:26:53 CDT Hugo Restrepo MD [facility] Procedures Code Procedure Name Date Entry Date Standard Desc ription CPT-00671 Venipuncture Draw Fee 15:53:34 CDT CPT-000 Give Appropriate Flu Vaccine 14:14:31 CDT 2 CPT-J1040 Depo Medrol 80 mg (Methyl Prednisolone A cetate) 10:42:44 CDT CPT-J1100 Decadron 8mg (Dexamethasone) 10:42:44 CDT 2 CPT-J0696 Rocephin 1gm Inj Solr 14:32:13 CDT CPT-J1020 Depo Medrol 60 mg (Methyl Prednisolone A cetate) 14:32:13 CDT CPT-J1100 Decadron 6mg (Dexamethasone) 14:32:13 CDT 2 CPT-27137 Hip bilat min 2V w AP pelvis 13:16:20 CDT 2 CPT-09614 Pelvis only 13:07:33 CDT CPT-34306 Spec Collection and Handling Fee 11:25:12 C DT CPT-09099 Fluzone Quadrivalent Intramuscular Suspe nsion 0.5 ML 14:31:55 CDT CPT-82282 Abx/Therapy Injection 13:28:47 SHAKE SPLITTER CPT-J2930 Solu Medrol 125 mg (Methyl Prednisolone Sodium Succinate) 12:00:47 SHAKE SPLITTER CPT-90679 Venipuncture Draw Fee 11:33:31 CDT CPT-66138 EKG Trac and Interp 11:21:09 CDT CPT-57729 Chest 2V Frontal and Lat 11:21:09 CDT 12/15 CPT-20119 Venipuncture Draw Fee 08:02:34 CDT CPT-09243 Chest 2V Frontal and Lat 05:47:59 CDT 06/05
--- OUTSIDE RECORDS SUMMARY | 2019-10-08 09:56 | XMS REPORT | Clinical Summary ---
Author Author Caitlin, Juliana Martinez Organization [facility] Address Unknown Phone Unavailable Allergies, [...] specified site; multiple sites Sinusitis 473.9 Resolved Huog Restrepo MD Unspecified sinusitis (chronic) Bronchitis-Acute 466.0 [...] URI 465.9 Inactive Ridge Bess DO Ac [place] upper respiratory infections of unspecified site Body Mass Index 35.0-35.9 Adult Refinement 2017 Ridge Bess DO Body Mass Index 35.0-35.9, adult BMI 34-34.9 Refinement Cherelle Torres RN Body Mass Index 35.0-35.9, adult BMI 35-35.9 Refinement David Marianneamisha RICEN Body Mass Index 35.0-35.9, adult BMI 34-34.9 Refinement May Vivar MD Body Mass Index 35.0-35.9, adult BMI 35-35.9 Refinement David Marianne ACCOUNTING MACHINE SERVICER Body Mass Index 35.0-35.9, adult BMI 33-33.9 Active David Marianne ACCOUNTING MACHINE SERVICER Body Mass Index 35.0-35.9, adult Upper respiratory [...] nonspecific skin eruption 782.1 Active David Marianne ACCOUNTING MACHINE SERVICER Rash and other nonspecific skin eruption Pharyngitis, acute / sore throat 462 Active 201 12/06/23 David Marianne ACCOUNTING MACHINE SERVICER Acute pharyngitis Shingles 053.9 Active David Marianne ACCOUNTING MACHINE SERVICER Herpes zoster without mention of complication Allergic [...] Generic Name NDC Status Provider Patient Instruction ATORVASTATIN CALCIUM 10 MG ORAL TABLET 1 pill by mouth night ly, for cholesterol ATORVASTATIN CALCIUM [id number] Active Columba Raida Active TRIAMCINOLONE ACETONIDE 0.1 % EXTERNAL CREAM apply bid spari ngly to rash TRIAMCINOLONE ACETONIDE 84958687579 No Longer Active Carlton Hu MD Active TYLENOL WITH CODEINE #3 300-30 MG ORAL TABLET ACETAMINOPHEN-CODEINE 50900611818 No Longer Active Carlton Hu MD Active TYLENOL WITH CODEINE #3 300-30 MG ORAL TABLET 1-2 po q6hr PRN Pa in ACETAMINOPHEN-CODEINE 80971083572 No Longer Active David Lopes AP RN Active ACYCLOVIR 800 MG ORAL TABLET 1 po 5 times daily x 7 days ACYCLOVIR 77220881062 No Longer Active David Lopes ACCOUNTING MACHINE 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 TOPAMAX 100 MG ORAL TABLET 1 by mouth twice daily TOPIRAMATE 87327774168 Active Columba Raida Active TRIAMCINOLONE ACETONIDE 0.1 % EXTERNAL OINTMENT Apply to affected areas TID PRN Rash/Itching for up 2 weeks TRIAMCINOLONE ACETON KAYLA 05094578831 No Longer Active David Marianne ACCOUNTING MACHINE 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 AMOXICILLIN 500 MG ORAL CAPSULE 1 cap by mouth twice daily 10/21 AMOXICILLIN 76071995318 No Longer Active David Marianne ACCOUNTING MACHINE 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 ELMIRON 100 MG ORAL CAPSULE 2 capsules in the morning and 1 capsule at night PENTOSAN POLYSULFATE SODIUM 80642355551 Active Cinthia cutler CHEMISTRY ASSOCIATE Active CYMBALTA 30 MG ORAL CAPSULE DELAYED RELEASE PARTICLES 1 cap by mouth daily for depression DULOXETINE HCL 78810873914 No Longer Active Carlton Hu MD Active CYMBALTA 60 MG ORAL CAPSULE DELAYED RELEASE PARTICLES 1 cap by mouth daily for mood and pain DULOXETINE HCL 69790290161 Active Carlton Hu MD Active TUSSIONEX PENNKINETIC ER 10-8 MG/5ML ORAL SUSPENSION E XTENDED RELEASE 5ml po q12hr PRN Cough HYDROCOD POLST-CHLORPHEN POLST 48307610711 Active Carlton Hu MD Active PREDNISONE 20 MG ORAL TABLET Take 2 tabs day 1 and 2 and 1 t ab days 3 and 4 PREDNISONE 54928493449 No Longer Active David Marianne ACCOUNTING MACHINE 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 DOXYCYCLINE HYCLATE 100 MG ORAL CAPSULE 1 cap by mouth twice latasha ly DOXYCYCLINE HYCLATE 22847064867 No Longer Active David Marianne ACCOUNTING MACHINE 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 TOPAMAX 100 MG ORAL TABLET Take 1 tablet po bid TOPIRAMATE 79420054912 No Longer Active David Marianne ACCOUNTING MACHINE 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 TUSSIONEX PENNKINETIC ER 10-8 MG/5ML ORAL SUSPENSION E XTENDED RELEASE 5ml po q12hr PRN Cough HYDROCOD POLST-CHLORPHEN POLST 5 3067326308 No Longer Active David Marianne ACCOUNTING MACHINE 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 AUGMENTIN 875-125 MG ORAL TABLET 1 po BID x 10 days 18/04/16 AMOXICILLIN-POT CLAVULANATE 27970199206 No Longer Active David Marianne ACCOUNTING MACHINE 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 PREDNISONE 50 MG ORAL TABLET Take 50 mg dialy for 6 day s 7 PREDNISONE 07681874471 No Longer Active David Lopes APRN Active TUSSIONEX PENNKINETIC ER 10-8 MG/5ML ORAL SUSPENSION E XTENDED RELEASE 5ml po q12hr PRN Cough HYDROCOD POLST-CHLORPHEN POLST 5 2734740826 No Longer Active Cherelle Torres RN Active PREDNISONE 20 MG ORAL TABLET two tabs by mouth today, then one tab by mouth days two and three and four PREDNISONE 03294137973 No Lo nger Active Cherelle Torres RN Active AZITHROMYCIN 250 MG ORAL TABLET 2 po qd x 1 day, then 1 po q d x 4 days AZITHROMYCIN 55574322014 No Longer Active Ridge Bess DO Active PREDNISONE 20 MG ORAL TABLET 2 po qd x 5 days P REDNISONE 26424897745 No Longer Active Perez Mora MD Active PROAIR HFA 108 (90 BASE) MCG/ACT INHALATION AEROSOL SO LUTION 2 puffs four times a day as needed ALBUTEROL SULFATE 85087654154 No Long er Active Becky FUENTES Active ASPIRIN 81 MG ORAL TABLET 1 po qd ASPIRIN 05333217656 Active Carlton Hu MD Active PREDNISONE 20 MG ORAL TABLET 1 tab twice daily for 3 d ay, then one daily for three days PREDNISONE 23465480580 No Longer Active Carlton Hu MD Active AUGMENTIN 875-125 MG ORAL TABLET 1 po BID x 10 days 20 16/03/22 AMOXICILLIN-POT CLAVULANATE 68015152217 No Longer Active Elise Garcia APRN Active TERBINAFINE HCL 250 MG ORAL TABLET 1 qDay for nail fungus 7 TERBINAFINE HCL 26748822546 No Longer Active Carlton Hu MD A ctive AMOXICILLIN 500 MG ORAL CAPSULE 1 cap by mouth three times a day AMOXICILLIN 69537288521 No Longer Active Carlton Hu MD Active ELMIRON 100 MG ORAL CAPSULE 2 tablets in the am and 1 tablet at hs PENTOSAN POLYSULFATE SODIUM 66510605124 No Longer Active Robert Hu MD Active MUCINEX D 60-600 MG ORAL TABLET EXTENDED RELEASE 12 HOUR 1 t ab po q am PSEUDOEPHEDRINE-GUAIFENESIN 66322857513 No Longer Act nael Carlton Hu MD Active MUCINEX DM MAXIMUM STRENGTH 60-1200 MG ORAL TABLET EXT ENDED RELEASE 12 HOUR 1 tab po q am DEXTROMETHORPHAN-GUAIFENESIN 70596404868 No Longer Active Carlton Hu MD Active TUSSIONEX PENNKINETIC ER 10-8 MG/5ML ORAL SUSPENSION E XTENDED RELEASE 5ml po q12hr PRN Cough HYDROCOD POLST-CHLORPHEN POLST 5 0213587276 No Longer Active Carlton Hu MD Active POTASSIUM CHLORIDE ER 20 MEQ ORAL TABLET EXTENDED RELE ASE Take 1 by mouth 4 times daily for 7 days POTASSIUM CHLORIDE 74162650554 No Longer Active Carlton Hu MD Active ZITHROMAX 250 MG ORAL TABLET 2 po today, then 1 po q days 2-5 20 14/09/04 AZITHROMYCIN 09763260386 No Longer Active Elise Garcia APRN Active TUSSIONEX PENNKINETIC ER 10-8 MG/5ML ORAL SUSPENSION E XTENDED RELEASE 5 ml twice a day as needed for cough HYDROCOD POLST-CHLORPH EN POLST 11288783604 No Longer Active Elise Gracia APRN Active MONTELUKAST SODIUM 10 MG ORAL TABLET 1 po daily for Allergy MONTELUKAST SODIUM 67704907521 Active Carlton Hu MD Ac tive TUSSIONEX PENNKINETIC ER 10-8 MG/5ML ORAL SUSPENSION E XTENDED RELEASE 5ml po q12hr PRN Cough HYDROCOD POLST-CHLORPHEN POLST 5 1269709776 No Longer Active Hugo Restrepo MD Active GABAPENTIN 100 MG ORAL CAPSULE 1 po BID for fibromyalgia GABAPENTIN 59407269166 Active ALFREDO Holly Active LYRICA 100 MG ORAL CAPSULE Take 1 tab po BID for fibromyalgia 20 11/08/21 PREGABALIN 83171443795 No Longer Active Elisedeirdre Garcia ACCOUNTING MACHINE SERVICER A ctive PREDNISONE 20 MG ORAL TABLET 2 tabs daily for 3 days, 1 tab daily for 3 days, 1/2 tab daily for 2 days PREDNISONE 24342479286 No Longer Active Jillina Frazell ACCOUNTING MACHINE 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 TUSSIONEX PENNKINETIC ER 10-8 MG/5ML ORAL SUSPENSION E XTENDED RELEASE 5 mL PO q 12 hrs PRN cough HYDROCOD POLST-CHLORPHEN POLST 791551 21027 No Longer Active Jillina Frazell ACCOUNTING MACHINE 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 FLUTICASONE PROPIONATE 50 MCG/ACT NASAL SUSPENSION 2 s prays each nostril daily until bottle is empty FLUTICASONE PROPIONATE 927597996 99 No Longer Active Jillina Frazell ACCOUNTING MACHINE 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 ASMANEX 60 METERED DOSES 220 MCG/INH INHALATION AEROSO L POWDER BREATH ACTIVATED 1 puff bid with rinse after MOMETASONE FUROATE 3734883 4102 No Longer Active Jillina Frazell ACCOUNTING MACHINE 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 ZITHROMAX Z-REYNA 250 MG ORAL TABLET 2 today, then 1 daily for 4 d ays AZITHROMYCIN 71178574115 No Longer Active Elise Arell ACCOUNTING MACHINE 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 TUSSIONEX PENNKINETIC ER 10-8 MG/5ML ORAL SUSPENSION E XTENDED RELEASE 5ml po q12hr PRN Cough HYDROCOD POLST-CHLORPHEN POLST 5 8358252385 No Longer Active Elise Arell ACCOUNTING MACHINE 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 PREDNISONE 20 MG ORAL TABLET 2 tabs daily for 3 days, 1 tab daily for 3 days, 1/2 tab daily for 2 days PREDNISONE 40427549724 No Longer Active Jillina Frazell ACCOUNTING MACHINE 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 AMOXICILLIN 500 MG ORAL CAPSULE 2 po BID x 10 days 201 09/29/08 AMOXICILLIN 62448583705 No Longer Active Jillina Frazell ACCOUNTING MACHINE SERVICER Act nael SINGULAIR 10 MG ORAL TABLET 1 po qday for allergies 20 14/01/12 MONTELUKAST SODIUM 26132335194 No Longer Active Carlton Hu MD Active LEVAQUIN 500 MG ORAL TABLET 1 tablet by mouth daily 20 13/09/24 LEVOFLOXACIN 19816085041 No Longer Active Carlton Hu MD Acti ve FLUTICASONE PROPIONATE 50 MCG/ACT NASAL SUSPENSION 2 s prays each nostril daily for 2 weeks, then 1 spray each nostril daily. FLUTICASONE PROPIONATE 87165385148 Active Carlton Hu MD Active ZITHROMAX 250 MG ORAL TABLET 2 po today, then 1 po q days 2-5 20 13/08/10 AZITHROMYCIN 79423041704 No Longer Active Elise Garcia APRN Active XANAX 0.5 MG ORAL TABLET one tablet by mouth daily prn anxiety 2015 ALPRAZOLAM 98578599628 Active ALFREDO Holly Active CEFDINIR 300 MG ORAL CAPSULE 1 po BID x 10 days CEFDINIR 84092984106 No Longer Active Carlton Hu MD Active ZOCOR 40 MG ORAL TABLET 1 tab by mouth daily SI MVASTATIN 53796809207 No Longer Active Carlton Hu MD Active CYCLOBENZAPRINE HCL 10 MG ORAL TABLET 1 tablet by mouth BID prn had pain CYCLOBENZAPRINE HCL 32267162281 No Longer Active Jayden Hu MD Active LEVOFLOXACIN 500 MG ORAL TABLET 1 tab PO daily x 10 days LEVOFLOXACIN 90802463061 No Longer Active Carlton Hu MD Acti ve PREDNISONE 20 MG ORAL TABLET 3 tab PO qd x 2d, 2 tab P O qd x 2d, 1 tab PO qd x 2d, 1/2 tab PO qd x 2d PREDNISONE 48153516051 No Lo nger Active Carlton Hu MD Active FLUTICASONE PROPIONATE 50 MCG/ACT NASAL SUSPENSION 1 t o 2 sprays each nostril daily FLUTICASONE PROPIONATE 88308418162 No Longer Ac tive Blaine HERNANDEZ Active CHERATUSSIN AC 100-10 MG/5ML ORAL SYRUP 1 tsp by mouth every 4 hours as needed for cough GUAIFENESIN-CODEINE 66988618433 No Longe r Active Blaine HERNANDEZ Active PROMETHAZINE-CODEINE 6.25-10 MG/5ML ORAL SYRUP 1 tsp b y mouth every 6 hours if needed for cough PROMETHAZINE-CODEINE 19355369949 No Longer Active Blaine HERNANDEZ Active CHERATUSSIN AC 100-10 MG/5ML ORAL SYRUP 1 tsp by mouth every 4 hours as needed for cough GUAIFENESIN-CODEINE 82709611712 No Longe r Active Blaine HERNANDEZ Active ZITHROMAX Z-REYNA 250 MG ORAL TABLET 2 today, then 1 daily for 4 d ays AZITHROMYCIN 59973452829 No Longer Active Columba Raida Act nael ZITHROMAX 250 MG ORAL TABLET 2 po today, then 1 po q days 2-5 20 14/03/21 AZITHROMYCIN 42250182022 No Longer Active Carlton Hu MD Active ZITHROMAX Z-REYNA 250 MG ORAL TABLET 2 today, then 1 daily for 4 d ays AZITHROMYCIN 17604891044 No Longer Active Columba Raida Act nael AUGMENTIN 875-125 MG ORAL TABLET 1 po BID x 10 days 13/01/20 AMOXICILLIN-POT CLAVULANATE 28024395450 No Longer Active Diya De Guzman APRN Active ZITHROMAX 250 MG ORAL TABLET 2 po today, then 1 po q days 2-5 20 12/08/14 AZITHROMYCIN 14806315611 No Longer Active Carlton Hu MD Active TRAMADOL HCL 50 MG ORAL TABLET 1 po tid with ES Tylenol TRAMADOL HCL 12826321415 Active ALFREDO Holly Active PREMARIN 0.625 MG ORAL TABLET TAKE 1 TAB BY MOUTH DAILY ESTROGENS CONJUGATED 01325051818 No Longer Active Ridge W Shahriar DO A ctive CYMBALTA 30 MG ORAL CAPSULE DELAYED RELEASE PARTICLES 1 cap by mouth daily DULOXETINE HCL 26867123008 No Longer Active Ridge tam DO Active AMOXICILLIN 500 MG ORAL CAPSULE 1 tab by mouth 3 times daily x 10 days AMOXICILLIN 85295400497 No Longer Active Carlton bustamante MD Active AMOXICILLIN 500 MG ORAL CAPSULE 1 tab by mouth 3 times daily x 10 days AMOXICILLIN 97378217184 No Longer Active Carlton bustamante MD Active PROMETHAZINE-CODEINE 6.25-10 MG/5ML ORAL SYRUP 1 tsp b y mouth every 8 hours prn cough PROMETHAZINE-CODEINE 13454969058 No Longer Acti ve Carlton Hu MD Active MEDROL 4 MG ORAL TABLET THERAPY PACK 6 pills x 1 day, then 5 pills x 1 day then 4 pills x 1 day, then 3 pills x 1 day, then 2 pills x 1 day, then 1 pill x 1 day, then stop METHYLPREDNISOLONE 23082273552 No Long er Active Perez Mora MD Active AZITHROMYCIN 250 MG ORAL TABLET 2 po qd x 1 day, then 1 po q d x 4 days AZITHROMYCIN 42948585816 No Longer Active Perez Ambriz MD Active SYMBICORT 160-4.5 MCG/ACT INHALATION AEROSOL 2 puffs bid wit h rinse after BUDESONIDE-FORMOTEROL FUMARATE 84285452886 N o Longer Active Perez Mora MD Active LYRICA 75 MG ORAL CAPSULE TAKE 1 CAPSULE BY MOUTH TWICE DAILY PREGABALIN 93969618009 No Longer Active Carlton Hu MD Acti ve TOPAMAX 25 MG ORAL TABLET 1 qHS x 1 week, then 1 BID x 1 week, then 1 qAM and 2 qHS x 1 week, then 2 BID (migraine prevention) T OPIRAMATE 58754489098 No Longer Active Jerica FUENTES Active TOPAMAX 50 MG ORAL TABLET take 1 tab po BID for migraines. 07/02 TOPIRAMATE 72881373284 No Longer Active Jerica Osei Torin Active TRIAMCINOLONE ACETONIDE 0.1 % EXTERNAL CREAM apply three roger es daily prn rash TRIAMCINOLONE ACETONIDE 87628624798 No Longer Active Carlton Hu MD Active PAXIL 40 MG ORAL TABLET take 1 tab po qday for depression 0 PAROXETINE HCL 03430230484 Active Carlton Hu MD Active CHERATUSSIN AC 100-10 MG/5ML ORAL SYRUP 5ml po q6hr PRN Cough 20 13/04/14 GUAIFENESIN-CODEINE 49734377426 No Longer Active Carlton Hu MD Active MEDROL 4 MG ORAL TABLET THERAPY PACK 6 tabs on day 1, 5 tabs on day 2, 4 tabs on day 3, 3 tabs on day 4, 2 tabs on day 5, 1 tab on day 6 2013 METHYLPREDNISOLONE 80013859411 No Longer Active Perez Mora MD Active AZITHROMYCIN 250 MG ORAL TABLET 2 po qd x 1 day, then 1 po q d x 4 days AZITHROMYCIN 03800205146 No Longer Active Perez Ambriz MD Active PROPRANOLOL HCL 60 MG ORAL TABLET 1 PO Q D PROPRANOLOL HCL 21974410517 No Longer Active Perez Mora MD Activ e CHERATUSSIN AC 100-10 MG/5ML ORAL SYRUP take one tsp po Q 6h ours prn cough GUAIFENESIN-CODEINE 39503775961 No Longer Active Zia Mora MD Active AUGMENTIN 875-125 MG ORAL TABLET 1 tab by mouth twice daily with food AMOXICILLIN-POT CLAVULANATE 91115469280 No Longer Act nael Perez Mora MD Active CHERATUSSIN AC 100-10 MG/5ML ORAL SYRUP 1 tsp by mouth every 4 hours as needed for cough GUAIFENESIN-CODEINE 25253333962 No Longe r Active Hugo Restrepo MD Active ACETAMINOPHEN-CODEINE #3 300-30 MG ORAL TABLET 1 PO Q 4-6 HRS WA N PAIN ACETAMINOPHEN-CODEINE 38748561997 No Longer Active Hugo Restrepo MD Active LEVAQUIN 500 MG ORAL TABLET take one po QD LEVO FLOXACIN 69720260882 No Longer Active Griffin HERNANDEZ Active PREDNISONE 20 MG ORAL TABLET Take 3 tabs daily for 3 d ays, 2 tabs daily for 3 days, 1 tab daily for 3 days, 1/2 tab daily for 3 days 11/07 PREDNISONE 88121028258 No Longer Active Carlton Hu MD Acti ve AVELOX 400 MG ORAL TABLET 1 tab by mouth daily MOXIFLOXACIN HCL 45006687152 No Longer Active Carlton Hu MD Active CHERATUSSIN AC 100-10 MG/5ML ORAL SYRUP 1 tsp by mouth every 4 hours as needed for cough GUAIFENESIN-CODEINE 03626457256 No Longe r Active Hugo Restrepo MD Active AVELOX 400 MG ORAL TABLET 1 tab by mouth daily MOXIFLOXACIN HCL 42694679481 No Longer Active Marcy De La Rosa MD PhD Active TERBINAFINE HCL 250 MG ORAL TABLET 1 qDay T ERBINAFINE HCL 32156010168 No Longer Active Marcy De La Rosa MD PhD Active CHERATUSSIN AC 100-10 MG/5ML ORAL SYRUP 1 tsp by mouth every 4 hours as needed for cough GUAIFENESIN-CODEINE 56918603757 No Longe r Active Marcy De La Rosa MD PhD Active AVELOX 400 MG ORAL TABLET 1 tab by mouth daily MOXIFLOXACIN HCL 54860548196 No Longer Active Marcy De La Rosa MD PhD Active HYDROCODONE-ACETAMINOPHEN 5-325 MG ORAL TABLET 1 po q 6hr PRN co ugh HYDROCODONE-ACETAMINOPHEN 96546494895 No Longer Active Marcy De La Rosa MD PhD Active PREDNISONE 20 MG ORAL TABLET 2 tabs daily for 3 days, 1 tab daily for 3 days, 1/2 tab daily for 2 days PREDNISONE 08374493493 No Longer Active Carlton Hu MD Active CEFDINIR 300 MG ORAL CAPSULE by mouth twice a day 2011 CEFDINIR 59783818462 No Longer Active Carlton Hu MD Acti ve HYDROCHLOROTHIAZIDE 25 MG ORAL TABLET 1 TAB PO DAILY HYDROCHLOROTHIAZIDE 13638922474 Active Carlton Hu MD A ctive ACETAMINOPHEN-CODEINE #3 300-30 MG ORAL TABLET 1 tablet po q 4-6 hrs prn pain ACETAMINOPHEN-CODEINE 28205898865 No Longer Active Ridge Bess DO Active ZITHROMAX 250 MG ORAL TABLET 2 po today, then 1 po q days 2-5 20 03/07/07 AZITHROMYCIN 99066935159 No Longer Active Carlton Hu MD Active CHERATUSSIN AC 100-10 MG/5ML ORAL SYRUP take 1 tsp po q4-6 h ours prn cough GUAIFENESIN-CODEINE 89354985150 No Longer Active Jayden Hu MD Active ACETAMINOPHEN-CODEINE #3 300-30 MG ORAL TABLET 1 PO Q 4-6 HR PRN PAIN ACETAMINOPHEN-CODEINE 19495552995 No Longer Active Da raimundo Hu MD Active LORTAB 7.5-500 MG/15ML ORAL ELIXIR 7.5 ml po q 4 hour prn cough HYDROCODONE-ACETAMINOPHEN 86505717984 No Longer Active Carlton Hu MD Active PREDNISONE 20 MG ORAL TABLET 1 po bid 3 days, then 1 po q day 3 days PREDNISONE 65989044568 No Longer Active Carlton Hu MD Active CEFDINIR 300 MG ORAL CAPSULE by mouth twice a day 2011 CEFDINIR 70282186000 No Longer Active Carlton Hu MD Acti ve CEFDINIR 300 MG ORAL CAPSULE by mouth twice a day 2010 CEFDINIR 76533068154 No Longer Active Carlton Hu MD Acti ve CEFDINIR 300 MG ORAL CAPSULE by mouth twice a day 2010 CEFDINIR 72583355294 No Longer Active Carlton Hu MD Acti ve TESSALON PERLES 100 MG ORAL CAPSULE 1 tablet by mouth 3 times daily as needed for cough BENZONATATE 39152415417 No Longer Active Carlton Hu MD Active CEFDINIR 300 MG ORAL CAPSULE by mouth twice a day 2010 CEFDINIR 68949149096 No Longer Active Carlton Hu MD Acti ve ZITHROMAX Z-REYNA 250 MG ORAL TABLET 2 today, then 1 daily for 4 d ays AZITHROMYCIN 17267334084 No Longer Active Hugo Restrepo MD Active TESSALON PERLES 100 MG ORAL CAPSULE 1 tablet by mouth 3 times daily as needed for cough TESSALON PERLES 100 MG ORAL CAPSULE 32522 7 BENZONATATE Inactive PREDNISONE 20 MG ORAL TABLET 1 po bid 3 days, then 1 po q day 3 days PREDNISONE 20 MG ORAL TABLET 795078 PREDNISONE Greer ctive LORTAB 7.5-500 MG/15ML ORAL ELIXIR 7.5 ml po q 4 hour prn cough LORTAB 7.5-500 MG/15ML ORAL ELIXIR HYDROCODONE-A CETAMINOPHEN Inactive ACETAMINOPHEN-CODEINE #3 300-30 MG ORAL TABLET 1 PO Q 4-6 HR PRN PAIN ACETAMINOPHEN-CODEINE #3 300-30 MG ORAL TABLET 9 10700 ACETAMINOPHEN-CODEINE Inactive CHERATUSSIN AC 100-10 MG/5ML ORAL SYRUP take 1 tsp po q4-6 h ours prn cough CHERATUSSIN AC 100-10 MG/5ML ORAL SYRUP 976677 GUAIFENESIN-CODEINE Inactive ACETAMINOPHEN-CODEINE #3 300-30 MG ORAL TABLET 1 tablet po q 4-6 hrs prn pain ACETAMINOPHEN-CODEINE #3 300-30 MG ORAL TABLET 717440 ACETAMINOPHEN-CODEINE Inactive HYDROCODONE-ACETAMINOPHEN 5-325 MG ORAL TABLET 1 po q 6hr PRN co ugh HYDROCODONE-ACETAMINOPHEN 5-325 MG ORAL TABLET 366264 HYDROCODONE-ACETAMINOPHEN Inactive AVELOX 400 MG ORAL TABLET 1 tab by mouth daily AVELOX 400 MG ORAL TABLET MOXIFLOXACIN HCL Inactive CHERATUSSIN AC 100-10 MG/5ML ORAL SYRUP 1 tsp by mouth every 4 hours as needed for cough CHERATUSSIN AC 100-10 MG/5ML ORAL SYRUP 9 22990 GUAIFENESIN-CODEINE Inactive TERBINAFINE HCL 250 MG ORAL TABLET 1 qDay 07/08 TERBINAFINE HCL 250 MG ORAL TABLET 556840 TERBINAFINE HCL Inactive CHERATUSSIN AC 100-10 MG/5ML ORAL SYRUP 1 tsp by mouth every 4 hours as needed for cough CHERATUSSIN AC 100-10 MG/5ML ORAL SYRUP 9 00071 GUAIFENESIN-CODEINE Inactive ACETAMINOPHEN-CODEINE #3 300-30 MG ORAL TABLET 1 PO Q 4-6 HRS WA N PAIN ACETAMINOPHEN-CODEINE #3 300-30 MG ORAL TABLET 526201 ACETAMINOPHEN-CODEINE Inactive CHERATUSSIN AC 100-10 MG/5ML ORAL SYRUP 1 tsp by mouth every 4 hours as needed for cough CHERATUSSIN AC 100-10 MG/5ML ORAL SYRUP 9 04998 GUAIFENESIN-CODEINE Inactive AUGMENTIN 875-125 MG ORAL TABLET 1 tab by mouth twice daily with food AUGMENTIN 875-125 MG ORAL TABLET AMOXICIL MADELINE-POT CLAVULANATE Inactive CHERATUSSIN AC 100-10 MG/5ML ORAL SYRUP take one tsp po Q 6h ours prn cough CHERATUSSIN AC 100-10 MG/5ML ORAL SYRUP 402186 GUAIFENESIN-CODEINE Inactive PROPRANOLOL HCL 60 MG ORAL TABLET 1 PO Q D PROPRANOLOL HCL 60 MG ORAL TABLET 754182 PROPRANOLOL HCL Inactive TOPAMAX 50 MG ORAL TABLET take 1 tab po BID for migraines. 07/02 TOPAMAX 50 MG ORAL TABLET 574168 TOPIRAMATE Inacti ve TOPAMAX 25 MG ORAL TABLET 1 qHS x 1 week, then 1 BID x 1 week, then 1 qAM and 2 qHS x 1 week, then 2 BID (migraine prevention) TOPAMAX 25 MG ORAL TABLET 087341 TOPIRAMATE Inactive LYRICA 75 MG ORAL CAPSULE TAKE 1 CAPSULE BY MOUTH TWICE DAILY LYRICA 75 MG ORAL CAPSULE 751260 PREGABALIN Inactive SYMBICORT 160-4.5 MCG/ACT INHALATION AEROSOL 2 puffs bid wit h rinse after SYMBICORT 160-4.5 MCG/ACT INHALATION AEROSOL BUDESONIDE- FORMOTEROL FUMARATE Inactive PROMETHAZINE-CODEINE 6.25-10 MG/5ML ORAL SYRUP 1 tsp b y mouth every 8 hours prn cough PROMETHAZINE-CODEINE 6.25-10 MG/ 5ML ORAL SYRUP 777162 PROMETHAZINE-CODEINE Inactive CYMBALTA 30 MG ORAL CAPSULE DELAYED RELEASE PARTICLES 1 cap by mouth daily CYMBALTA 30 MG ORAL CAPSULE DELAYED RELE ASE PARTICLES 302382 DULOXETINE HCL Inactive PREMARIN 0.625 MG ORAL TABLET TAKE 1 TAB BY MOUTH DAILY PREMARIN 0.625 MG ORAL TABLET ESTROGENS CONJUGATED Inactive CHERATUSSIN AC 100-10 MG/5ML ORAL SYRUP 1 tsp by mouth every 4 hours as needed for cough CHERATUSSIN AC 100-10 MG/5ML ORAL SYRUP 9 25092 GUAIFENESIN-CODEINE Inactive PROMETHAZINE-CODEINE 6.25-10 MG/5ML ORAL SYRUP 1 tsp b y mouth every 6 hours if needed for cough PROMETHAZINE-CODEINE 6.25-10 MG/5ML ORAL SYRUP 423191 PROMETHAZINE-CODEINE Inactive CHERATUSSIN AC 100-10 MG/5ML ORAL SYRUP 1 tsp by mouth every 4 hours as needed for cough CHERATUSSIN AC 100-10 MG/5ML ORAL SYRUP 9 32361 GUAIFENESIN-CODEINE Inactive FLUTICASONE PROPIONATE 50 MCG/ACT NASAL SUSPENSION 1 t o 2 sprays each nostril daily FLUTICASONE PROPIONATE 50 MCG/AC T NASAL SUSPENSION 1643904 FLUTICASONE PROPIONATE Inactive PREDNISONE 20 MG ORAL TABLET 3 tab PO qd x 2d, 2 tab P O qd x 2d, 1 tab PO qd x 2d, 1/2 tab PO qd x 2d PREDNISONE 20 MG ORAL TAB LET 640315 PREDNISONE Inactive LEVOFLOXACIN 500 MG ORAL TABLET 1 tab PO daily x 10 days LEVOFLOXACIN 500 MG ORAL TABLET 922611 LEVOFLOXACIN Inactive CYCLOBENZAPRINE HCL 10 MG ORAL TABLET 1 tablet by mouth BID prn had pain CYCLOBENZAPRINE HCL 10 MG ORAL TABLET 344775 CYCLOBENZAPRINE HCL Inactive ZOCOR 40 MG ORAL TABLET 1 tab by mouth daily 4 ZOCOR 40 MG ORAL TABLET 935420 SIMVASTATIN Inactive TUSSIONEX PENNKINETIC ER 10-8 MG/5ML [...] FLUTICASONE PROPIO EFE 50 MCG/ACT NASAL SUSPENSION 4445213 FLUTICASONE PROPIONATE Inactive TUSSIONEX PENNKINETIC ER 10-8 MG/5ML ORAL SUSPENSION E XTENDED RELEASE 5 mL PO q 12 hrs PRN cough TUSSIONEX PENNKINETI C ER 10-8 MG/5ML ORAL SUSPENSION EXTENDED RELEASE HYDROCOD POLST-CHLORPHEN POLST I nactive LYRICA 100 MG ORAL CAPSULE Take 1 tab po BID for fibromyalgia 20 11/08/21 LYRICA 100 MG ORAL CAPSULE 560729 PREGABALIN Inact nael TUSSIONEX PENNKINETIC ER 10-8 [...] three days PREDNISONE 20 MG ORAL TABLET 806510 PREDNIS ONE Inactive PROAIR HFA 108 (90 BASE) MCG/ACT INHALATION AEROSOL SO LUTION 2 puffs four times a day as needed PROAIR HFA 108 (90 B ASE) MCG/ACT INHALATION AEROSOL SOLUTION ALBUTEROL SULFATE Inactive PREDNISONE 20 MG ORAL TABLET two tabs by mouth today, then one tab by mouth days two and three and four PREDNISONE 20 MG ORAL TAB LET [id number] PREDNISONE Inactive TUSSIONEX PENNKINETIC ER 10-8 MG/5ML [...] bid 04/20 TOPAMAX 100 MG ORAL TABLET 323734 TOPIRAMATE Inactive CYMBALTA 30 MG ORAL CAPSULE DELAYED RELEASE PARTICLES 1 cap by mouth daily for depression CYMBALTA 30 MG ORAL CAPSULE DELAYED RELEASE PARTICLES [id number] DULOXETINE HCL Inactive TYLENOL WITH CODEINE #3 300-30 MG ORAL TABLET 1-2 po q6hr PRN Pa in TYLENOL WITH CODEINE #3 300-30 MG ORAL TABLET [id number] ACETAMINOPHEN-CODEINE Inactive TYLENOL WITH CODEINE #3 300-30 MG ORAL TABLET TYLENOL WITH CODEINE #3 300-30 MG ORAL TABLET 294741 ACETAMINOPHEN-CODEINE Inactive TRIAMCINOLONE ACETONIDE 0.1 % EXTERNAL CREAM apply bid spari ngly to rash TRIAMCINOLONE ACETONIDE 0.1 % EXTERNAL CREAM 101 7894 TRIAMCINOLONE ACETONIDE Inactive ZITHROMAX Z-REYNA 250 MG ORAL TABLET 2 today, then 1 daily for 4 d ays ZITHROMAX Z-REYNA 250 MG ORAL TABLET 329404 AZITHROMYCIN Inactive CEFDINIR 300 MG ORAL CAPSULE by mouth twice a day 2010 CEFDINIR 300 MG ORAL CAPSULE 20020704 CEFDINIR Inactive CEFDINIR 300 MG ORAL CAPSULE by mouth twice a day 2010 CEFDINIR 300 MG ORAL CAPSULE 829870 CEFDINIR Inactive CEFDINIR 300 MG ORAL CAPSULE by mouth twice a day 2010 CEFDINIR 300 MG ORAL CAPSULE 20020704 CEFDINIR Inactive CEFDINIR 300 MG ORAL CAPSULE by mouth twice a day 2011 CEFDINIR 300 MG ORAL CAPSULE 547486 CEFDINIR Inactive ZITHROMAX 250 MG ORAL TABLET 2 po today, then 1 po q days 2-5 03/07/07 ZITHROMAX 250 MG ORAL TABLET 513613 AZITHROMYCIN [place] [facility] CEFDINIR 300 MG ORAL CAPSULE by mouth twice a day 2011 CEFDINIR 300 MG ORAL CAPSULE 20020704 CEFDINIR Inactive PREDNISONE 20 MG ORAL TABLET 2 tabs daily for 3 days, 1 tab daily for 3 days, 1/2 tab daily for 2 days PREDNISONE 20 MG ORAL T ABLET 475013 PREDNISONE Inactive AVELOX 400 MG ORAL TABLET [...] days 11/07 PREDNISONE 20 MG ORAL TABLET 512277 PREDNISONE Inactive LEVAQUIN 500 MG ORAL TABLET take one po QD LEVAQUIN 500 MG ORAL TABLET 590295 LEVOFLOXACIN Inactive AZITHROMYCIN 250 MG ORAL TABLET 2 po qd x 1 day, then 1 po q d x 4 days AZITHROMYCIN 250 MG ORAL TABLET 192401 AZITHROMY GIOVANNI Inactive MEDROL 4 MG ORAL TABLET THERAPY PACK 6 tabs on day 1, 5 tabs on day 2, 4 tabs on day 3, 3 tabs on day 4, 2 tabs on day 5, 1 tab on day 6 2013 MEDROL 4 MG ORAL TABLET THERAPY PACK 972628 METHYLPREDNISOLONE [place] [facility] CHERATUSSIN AC 100-10 MG/5ML ORAL SYRUP 5ml po q6hr PRN Cough 20 13/04/14 CHERATUSSIN AC 100-10 MG/5ML ORAL SYRUP 159484 GUAIFENE SIN-CODEINE Inactive TRIAMCINOLONE ACETONIDE 0.1 % EXTERNAL CREAM apply three roger es daily prn rash TRIAMCINOLONE ACETONIDE 0.1 % EXTERNAL CREAM 101 4314 TRIAMCINOLONE ACETONIDE Inactive AZITHROMYCIN 250 MG ORAL TABLET 2 po qd x 1 day, then 1 po q d x 4 days AZITHROMYCIN 250 MG ORAL TABLET 276190 AZITHROMY GIOVANNI Inactive MEDROL 4 MG ORAL TABLET THERAPY PACK 6 pills x 1 day, then 5 pills x 1 day then 4 pills x 1 day, then 3 pills x 1 day, then 2 pills x 1 day, then 1 pill x 1 day, then stop MEDROL 4 MG ORAL TABLET THERAPY PACK 707151 METHYLPREDNISOLONE Inactive AMOXICILLIN 500 MG ORAL CAPSULE 1 tab by mouth 3 times daily x 10 days AMOXICILLIN 500 MG ORAL CAPSULE 190279 AMOXICILL IN Inactive AMOXICILLIN 500 MG ORAL CAPSULE 1 tab by mouth 3 times daily x 10 days AMOXICILLIN 500 MG ORAL CAPSULE 375301 AMOXICILL IN Inactive ZITHROMAX 250 MG ORAL TABLET 2 po today, then 1 po q days 2-5 20 12/08/14 ZITHROMAX 250 MG ORAL TABLET 719730 AZITHROMYCIN [place] [facility] AUGMENTIN 875-125 MG ORAL TABLET 1 po BID x 10 days 13/01/20 AUGMENTIN 875-125 MG ORAL TABLET AMOXICILLIN-POT CLAVULANATE Inactive ZITHROMAX Z-REYNA 250 MG ORAL TABLET 2 today, then 1 daily for 4 d ays ZITHROMAX Z-REYNA 250 MG ORAL TABLET 881192 AZITHROMYCIN Inactive ZITHROMAX 250 MG ORAL TABLET 2 po today, then 1 po q days 2-5 20 14/03/21 ZITHROMAX 250 MG ORAL TABLET 568253 AZITHROMYCIN [place] [facility] ZITHROMAX Z-REYNA 250 MG ORAL TABLET 2 today, then 1 daily for 4 d ays ZITHROMAX Z-REYNA 250 MG ORAL TABLET 292194 AZITHROMYCIN Inactive CEFDINIR 300 MG ORAL CAPSULE 1 po BID x 10 days 06/21 CEFDINIR 300 MG ORAL CAPSULE 20020704 CEFDINIR Inactive ZITHROMAX 250 MG ORAL TABLET 2 po today, then 1 po q days 2-5 20 13/08/10 ZITHROMAX 250 MG ORAL TABLET 164195 AZITHROMYCIN [place] [facility] LEVAQUIN 500 MG ORAL TABLET 1 tablet by mouth daily 13/09/24 LEVAQUIN 500 MG ORAL TABLET 920761 LEVOFLOXACIN Inactive SINGULAIR 10 MG ORAL TABLET 1 po qday for allergies 20 14/01/12 SINGULAIR 10 MG ORAL TABLET 002364 MONTELUKAST SODIUM Inactive AMOXICILLIN 500 MG ORAL CAPSULE 2 po BID x 10 days 201 09/29/08 AMOXICILLIN 500 MG ORAL CAPSULE 382032 AMOXICILLIN Inactive PREDNISONE 20 MG ORAL TABLET 2 tabs daily for 3 days, 1 tab daily for 3 days, 1/2 tab daily for 2 days PREDNISONE 20 MG ORAL T ABLET 189080 PREDNISONE Inactive ZITHROMAX Z-REYNA 250 MG ORAL TABLET 2 today, then 1 daily for 4 d ays ZITHROMAX Z-REYNA 250 MG ORAL TABLET 954318 AZITHROMYCIN Inactive PREDNISONE 20 MG ORAL TABLET 2 tabs daily for 3 days, 1 tab daily for 3 days, 1/2 tab daily for 2 days PREDNISONE 20 MG ORAL T ABLET 107056 PREDNISONE Inactive ZITHROMAX 250 MG ORAL TABLET 2 po today, then 1 po q days 2-5 20 14/09/04 ZITHROMAX 250 MG ORAL TABLET 091708 AZITHROMYCIN [place] [facility] AMOXICILLIN 500 MG ORAL CAPSULE 1 cap by mouth three times a day AMOXICILLIN 500 MG ORAL CAPSULE 373708 AMOXICILLIN Inactive TERBINAFINE HCL 250 MG ORAL TABLET 1 qDay for nail fungus 7 TERBINAFINE HCL 250 MG ORAL TABLET 623271 TERBINAFINE HCL Inact nael AUGMENTIN 875-125 MG ORAL TABLET 1 po BID x 10 days 16/03/22 AUGMENTIN 875-125 MG ORAL TABLET AMOXICILLIN-POT CLAVULANATE Inactive PREDNISONE 20 MG ORAL TABLET 2 po qd x 5 days PREDNISONE 20 MG ORAL TABLET 122767 PREDNISONE Inactive AZITHROMYCIN 250 MG ORAL TABLET 2 po qd x 1 day, then 1 po q d x 4 days AZITHROMYCIN 250 MG ORAL TABLET 782359 AZITHROMY GIOVANNI Inactive PREDNISONE 50 MG ORAL TABLET Take 50 mg dialy for 6 day s 7 PREDNISONE 50 MG ORAL TABLET 659374 PREDNISONE Inactive AUGMENTIN 875-125 MG ORAL TABLET 1 po BID x 10 days 18/04/16 AUGMENTIN 875-125 MG ORAL TABLET AMOXICILLIN-POT CLAVULANATE Inactive DOXYCYCLINE HYCLATE 100 MG ORAL CAPSULE 1 cap by mouth twice latasha ly DOXYCYCLINE HYCLATE 100 MG ORAL CAPSULE 3348846 DOXYCYCL INE HYCLATE Inactive PREDNISONE 20 MG ORAL TABLET Take 2 tabs day 1 and 2 and 1 t ab days 3 and 4 PREDNISONE 20 MG ORAL TABLET 778775 PREDNISONE Inactive AMOXICILLIN 500 MG ORAL CAPSULE 1 cap by mouth twice daily 10/21 AMOXICILLIN 500 MG ORAL CAPSULE 236363 AMOXICILLIN Inactive TRIAMCINOLONE ACETONIDE 0.1 % EXTERNAL OINTMENT Apply to affected areas TID PRN Rash/Itching for up 2 weeks TRIAMCINOLON E ACETONIDE 0.1 % EXTERNAL OINTMENT 5999625 TRIAMCINOLONE ACETONIDE Inactive ACYCLOVIR 800 MG ORAL TABLET 1 po 5 times daily x 7 days ACYCLOVIR 800 MG ORAL TABLET 854763 ACYCLOVIR Inactive Vital Signs Date Name Value [...] Panel - Chemistry sodium, serum 137 mmol/L 128-204 6868/10/08 carbon dioxide, venous blood 29.9 mmol/L 21.0-32 [...] 0.50 mg/dL 0.00-1.00 cholesterol, serum 324 mg/dL 626-024 3834/10/08 triglyceride, serum, fasting 130 mg/dL 30-200 HDL [...] negative Encounters Code Encounter Date Provider Facility CPT-04475 [id number] Vst-Est Level IV 09:06:31 Jadon Hu MD [facility] CPT-57888 Level 3 Est. Patient 14:16:41 ALICIA lion APRN [facility] CPT-85231 Level 3 Est. Patient 13:57:55 CDT David Tin dle [facility] CPT-32462 Level 3 Est. Patient 16:08:07 CDT David Tin dle [facility] CPT-63249 Level 3 Est. Patient 16:53:54 CDT May haas MD [facility] CPT-42920 [id number] Vst-Est Level IV 08:41:[address] Carlton Hu MD [facility] CPT-36557 Level 3 Est. Patient 09:46:49 EYEGLASS FITTER David Tin dle [facility] CPT-71247 [id number] Vst-Est Level III 11:12:16 CDT Yanet Bess DO [facility] CPT-70171 Level 3 Est. Patient 11:34:49 EYEGLASS FITTER Perez Mora MD [facility] CPT-28574 Level 4 Est. Patient 09:51:32 EYEGLASS FITTER Carlton rich MD [facility] CPT-82659 Level 3 Est. Patient 10:26:00 EYEGLASS FITTER Elise stephenson [facility] CPT-26152 Level 3 Est. Patient 13:35:41 EYEGLASS FITTER Carlton rich MD [facility] CPT-97859 Level 3 Est. Patient 10:03:52 EYEGLASS FITTER Carlton rich MD [facility] CPT-89695 Level 3 Est. Patient 12:17:50 CDT Hugo Restrepo MD [facility] CPT-12066 Level 3 Est. Patient 13:42:38 CDT Elise stephenson [facility] CPT-44932 Level 3 Est. Patient 13:23:51 CDT Diya cobian [facility] CPT-03626 Level 3 Est. Patient 14:22:19 EYEGLASS FITTER Diya cobian [facility] CPT-55817 Level 3 Est. Patient 10:11:46 CDT Carlton rich MD [facility] CPT-86358 Level 3 Est. Patient 17:29:43 CDT Elise Are ll [facility] CPT-48881 Level 3 Est. Patient 11:58:06 CDT Elise Are ll [facility] CPT-82815 Level 4 Est. Patient 14:36:51 CDT Carlton rich MD [facility]-38358 Level 3 Est. Patient 18:16:00 EYEGLASS FITTER Blaine Freeman [facility] CPT-44654 Level 3 Est. Patient 09:45:49 EYEGLASS FITTER Carlton rich MD [facility] CPT-99286 Level 3 Est. Patient 13:19:20 CDT Carlton rich MD [facility] CPT-57001 Level 3 Est. Patient 13:06:43 CDT Ridge tam DO [facility] CPT-41881 Level 3 Est. Patient 10:03:07 CDT Perez Mora MD [facility]-64246 Level 3 Est. Patient 19:50:35 EYEGLASS FITTER Carlton rich MD [facility] CPT-59656 Level 4 Est. Patient 18:05:01 EYEGLASS FITTER Carlton rich MD [facility] CPT-45048 Level 3 Est. Patient 10:45:55 EYEGLASS FITTER Hugo Restrepo MD [facility] CPT-84005 Level 3 Est. Patient 14:12:49 CDT Griffin lincoln [facility]-21558 Level 3 Est. Patient 17:37:24 CDT Carlton rich MD [facility]-94171 Level 3 Est. Patient 16:51:54 CDT Carlton rich MD [facility] CPT-65077 Level 3 Est. Patient 12:18:11 CDT Hugo Restrepo MD [facility] CPT-14461 Level 3 Est. Patient 11:30:25 CDT Marcy crisostomo MD PhD [facility] CPT-23118 Level 3 Est. Patient 12:00:47 EYEGLASS FITTER Carlton rich MD [facility] CPT-95544 Level 3 Est. Patient 16:31:06 EYEGLASS FITTER Carlton rich MD [facility] CPT-37677 Level 3 Est. Patient 16:23:24 EYEGLASS FITTER Ridge tam [facility] CPT-97808 Level 3 Est. Patient 12:34:12 CDT Carlton rich MD [facility] CPT-30963 Level 2 Est. Patient 15:43:33 CDT Robi armstrong MD [facility] CPT-34964 Level 4 Est. Patient 14:04:44 CDT Carlton rich MD [facility] CPT-52289 Level 3 Est. Patient 05:47:59 CDT Ridge tam [facility] CPT-07838 Level 3 Est. Patient 13:12:53 EYEGLASS FITTER Carlton rich MD [facility] CPT-44375 Level 3 Est. Patient 14:26:53 CDT Hugo Restrepo MD [facility] Procedures Code Procedure Name Date Entry Date Standard Desc ription CPT-25117 Venipuncture Draw Fee 15:53:34 CDT CPT-000 Give Appropriate Flu Vaccine 14:14:31 CDT 2 CPT-J1040 Depo Medrol 80 mg (Methyl Prednisolone A cetate) 10:42:44 CDT CPT-J1100 Decadron 8mg (Dexamethasone) 10:42:44 CDT 2 CPT-J0696 Rocephin 1gm Inj Solr 14:32:13 CDT CPT-J1020 Depo Medrol 60 mg (Methyl Prednisolone A cetate) 14:32:13 CDT CPT-J1100 Decadron 6mg (Dexamethasone) 14:32:13 CDT 2 CPT-96803 Hip bilat min 2V w AP pelvis 13:16:20 CDT 2 CPT-27645 Pelvis only 13:07:33 CDT CPT-11438 Spec Collection and Handling Fee 11:25:12 C DT CPT-61454 Fluzone Quadrivalent Intramuscular Suspe nsion 0.5 ML 14:31:55 CDT CPT-09784 Abx/Therapy Injection 13:28:47 EYEGLASS FITTER CPT-J2930 Solu Medrol 125 mg (Methyl Prednisolone Sodium Succinate) 12:00:47 EYEGLASS FITTER CPT-89606 Venipuncture Draw Fee 11:33:31 CDT CPT-45067 EKG Trac and Interp 11:21:09 CDT CPT-76488 Chest 2V Frontal and Lat 11:21:09 CDT 12/15 CPT-94126 Venipuncture Draw Fee 08:02:34 CDT CPT-77545 Chest 2V Frontal and Lat 05:47:59 CDT 06/05
--- OUTSIDE RECORDS SUMMARY | 2019-10-08 09:56 | XMS REPORT | Clinical Summary ---
Author Author Caitlin, Juliana Martinez Organization [facility] Address Unknown Phone Unavailable Allergies, [...] URI 465.9 Inactive Ridge Bess DO [place] upper respiratory infections of unspecified site Body Mass Index 35.0-35.9 Adult Refinement 2017 Ridge Bess DO Body Mass Index 35.0-35.9, adult BMI 34-34.9 Refinement Cherelle Torres RN Body Mass Index 35.0-35.9, adult BMI 35-35.9 Refinement David Marianneamisha RICEN Body Mass Index 35.0-35.9, adult BMI 34-34.9 Refinement May Vivar MD Body Mass Index 35.0-35.9, adult BMI 35-35.9 Refinement David Marianne JOB ESTIMATOR Body Mass Index 35.0-35.9, adult BMI 33-33.9 Active David Marianne JOB ESTIMATOR Body Mass Index 35.0-35.9, adult Upper respiratory infection, viral 465.9 Active 2 Perez Mora MD Acute upper respiratory infections of un specified site Obesity Class I (BMI 30-34.9) Refinement Jose Torres RN Obesity, unspecified Morbid obesity due to excess calories [facility] David Marianneamisha RICEN Obesity, unspecified [...] nonspecific skin eruption 782.1 Active David Marianne JOB ESTIMATOR Rash and other nonspecific skin eruption Pharyngitis, acute / sore throat 462 Active 201 12/06/23 David Marianne JOB ESTIMATOR Acute pharyngitis Shingles 053.9 Active David Marianne JOB ESTIMATOR Herpes zoster without mention of complication Allergic [...] mouth night ly, for cholesterol ATORVASTATIN CALCIUM 08257266036 Active Columba Raida Active TRIAMCINOLONE ACETONIDE 0.1 % EXTERNAL CREAM apply bid spari ngly to rash TRIAMCINOLONE ACETONIDE 49549701820 No Longer Active Carlton Hu MD Active TYLENOL WITH CODEINE #3 300-30 MG ORAL TABLET ACETAMINOPHEN-CODEINE 53392860689 No Longer Active Carlton Hu MD Active TYLENOL WITH CODEINE #3 300-30 MG ORAL TABLET 1-2 po q6hr PRN Pa in ACETAMINOPHEN-CODEINE 60227854804 No Longer Active David Lopes AP RN Active ACYCLOVIR 800 MG ORAL TABLET 1 po 5 times daily x 7 days ACYCLOVIR 36104157031 No Longer Active David Lopes JOB ESTIMATOR Active TOPAMAX 100 MG ORAL TABLET 1 by mouth twice daily TOPIRAMATE 14798896929 Active Columba Raida Active TRIAMCINOLONE ACETONIDE 0.1 % EXTERNAL OINTMENT Apply to affected areas TID PRN Rash/Itching for up 2 weeks TRIAMCINOLONE ACETON KAYLA 57758231252 No Longer Active David Marianne JOB ESTIMATOR Active AMOXICILLIN 500 MG ORAL CAPSULE 1 cap by mouth twice daily 10/21 AMOXICILLIN 71047295773 No Longer Active David Marianne JOB ESTIMATOR Active ELMIRON 100 MG ORAL CAPSULE 2 capsules in the morning and 1 capsule at night PENTOSAN POLYSULFATE SODIUM 99074338534 Active 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 CYMBALTA 30 MG ORAL CAPSULE DELAYED RELEASE PARTICLES 1 cap by mouth daily for depression DULOXETINE HCL 02484673178 No Longer Active Carlton Hu MD Active CYMBALTA 60 MG ORAL CAPSULE DELAYED RELEASE PARTICLES 1 cap by mouth daily for mood and pain DULOXETINE HCL 51553166700 Active Carlton Hu MD Active TUSSIONEX PENNKINETIC ER 10-8 MG/5ML ORAL SUSPENSION E XTENDED RELEASE 5ml po q12hr PRN Cough HYDROCOD POLST-CHLORPHEN POLST 00910744201 Active Carlton Hu MD Active PREDNISONE 20 MG ORAL TABLET Take 2 tabs day 1 and 2 and 1 t ab days 3 and 4 PREDNISONE 24118411375 No Longer Active David Marianne JOB ESTIMATOR Active DOXYCYCLINE HYCLATE 100 MG ORAL CAPSULE 1 cap by mouth twice latasha ly DOXYCYCLINE HYCLATE 95566813858 No Longer Active David Marianne JOB ESTIMATOR Active TOPAMAX 100 MG ORAL TABLET Take 1 tablet po bid TOPIRAMATE 54066801906 No Longer Active David Marianne JOB ESTIMATOR Active TUSSIONEX PENNKINETIC ER 10-8 MG/5ML ORAL SUSPENSION E XTENDED RELEASE 5ml po q12hr PRN Cough HYDROCOD POLST-CHLORPHEN POLST 5 9888176507 No Longer Active David Marianne JOB ESTIMATOR Active AUGMENTIN 875-125 MG ORAL TABLET 1 po BID x 10 days 18/04/16 AMOXICILLIN-POT CLAVULANATE 30077024040 No Longer Active David Marianne JOB ESTIMATOR Active PREDNISONE 50 MG ORAL TABLET Take 50 mg dialy for 6 day s 7 PREDNISONE 38290617480 No Longer Active David Lopes APRN Active TUSSIONEX PENNKINETIC ER 10-8 MG/5ML ORAL SUSPENSION E XTENDED RELEASE 5ml po q12hr PRN Cough HYDROCOD POLST-CHLORPHEN POLST 5 9048239194 No Longer Active Cherelle Torres RN Active PREDNISONE 20 MG ORAL TABLET two tabs by mouth today, then one tab by mouth days two and three and four PREDNISONE 41720031161 No Lo nger Active Cherelle Torres RN Active AZITHROMYCIN 250 MG ORAL TABLET 2 po qd x 1 day, then 1 po q d x 4 days AZITHROMYCIN 27964387038 No Longer Active Ridge Bess DO Active PREDNISONE 20 MG ORAL TABLET 2 po qd x 5 days P REDNISONE 46524334431 No Longer Active Perez Mora MD Active PROAIR HFA 108 (90 BASE) MCG/ACT INHALATION AEROSOL SO LUTION 2 puffs four times a day as needed ALBUTEROL SULFATE 98245012744 No Long er Active Becky FUENTES Active ASPIRIN 81 MG ORAL TABLET 1 po qd ASPIRIN 10770079971 Active Carlton Hu MD Active PREDNISONE 20 MG ORAL TABLET 1 tab twice daily for 3 d ay, then one daily for three days PREDNISONE 41837900982 No Longer Active Carlton Hu MD Active AUGMENTIN 875-125 MG ORAL TABLET 1 po BID x 10 days 20 16/03/22 AMOXICILLIN-POT CLAVULANATE 18937133271 No Longer Active Elise Garcia APRN Active TERBINAFINE HCL 250 MG ORAL TABLET 1 qDay for nail fungus 7 TERBINAFINE HCL 00352330505 No Longer Active Carlton Hu MD A ctive AMOXICILLIN 500 MG ORAL CAPSULE 1 cap by mouth three times a day AMOXICILLIN 73675647037 No Longer Active Carlton Hu MD Active ELMIRON 100 MG ORAL CAPSULE 2 tablets in the am and 1 tablet at hs PENTOSAN POLYSULFATE SODIUM 52424621339 No Longer Active Robert Hu MD Active MUCINEX D 60-600 MG ORAL TABLET EXTENDED RELEASE 12 HOUR 1 t ab po q am PSEUDOEPHEDRINE-GUAIFENESIN 26990118210 No Longer Act nael Carlton Hu MD Active MUCINEX DM MAXIMUM STRENGTH 60-1200 MG ORAL TABLET EXT ENDED RELEASE 12 HOUR 1 tab po q am DEXTROMETHORPHAN-GUAIFENESIN 40335380312 No Longer Active Carlton Hu MD Active TUSSIONEX PENNKINETIC ER 10-8 MG/5ML ORAL SUSPENSION E XTENDED RELEASE 5ml po q12hr PRN Cough HYDROCOD POLST-CHLORPHEN POLST 5 0596181841 No Longer Active Carlton Hu MD Active POTASSIUM CHLORIDE ER 20 MEQ ORAL TABLET EXTENDED RELE ASE Take 1 by mouth 4 times daily for 7 days POTASSIUM CHLORIDE 78409912123 No Longer Active Carlton Hu MD Active ZITHROMAX 250 MG ORAL TABLET 2 po today, then 1 po q days 2-5 20 14/09/04 AZITHROMYCIN 06964002377 No Longer Active Elise Garcia APRN Active TUSSIONEX PENNKINETIC ER 10-8 MG/5ML ORAL SUSPENSION E XTENDED RELEASE 5 ml twice a day as needed for cough HYDROCOD POLST-CHLORPH EN POLST 55249538189 No Longer Active Elise Garcia APRN Active MONTELUKAST SODIUM 10 MG ORAL TABLET 1 po daily for Allergy MONTELUKAST SODIUM 27204052629 Active Carlton Hu MD Ac tive TUSSIONEX PENNKINETIC ER 10-8 MG/5ML ORAL SUSPENSION E XTENDED RELEASE 5ml po q12hr PRN Cough HYDROCOD POLST-CHLORPHEN POLST 5 9729954055 No Longer Active Hugo Restrepo MD Active GABAPENTIN 100 MG ORAL CAPSULE 1 po BID for fibromyalgia GABAPENTIN 83168512747 Active ALFREDO Holly Active LYRICA 100 MG ORAL CAPSULE Take 1 tab po BID for fibromyalgia 20 11/08/21 PREGABALIN 34616476257 No Longer Active Elisedeirdre Garcia JOB ESTIMATOR A ctive PREDNISONE 20 MG ORAL TABLET 2 tabs daily for 3 days, 1 tab daily for 3 days, 1/2 tab daily for 2 days PREDNISONE 66682572711 No Longer Active Jillina Frazell JOB ESTIMATOR Active TUSSIONEX PENNKINETIC ER 10-8 MG/5ML ORAL SUSPENSION E XTENDED RELEASE 5 mL PO q 12 hrs PRN cough HYDROCOD POLST-CHLORPHEN POLST 988020 15629 No Longer Active Jillina Frazell JOB ESTIMATOR Active FLUTICASONE PROPIONATE 50 MCG/ACT NASAL SUSPENSION 2 s prays each nostril daily until bottle is empty FLUTICASONE PROPIONATE 783532599 99 No Longer Active Jillina Frazell JOB ESTIMATOR Active ASMANEX 60 METERED DOSES 220 MCG/INH INHALATION AEROSO L POWDER BREATH ACTIVATED 1 puff bid with rinse after MOMETASONE FUROATE 7977179 4102 No Longer Active Jillina Frazell JOB ESTIMATOR Active ZITHROMAX Z-REYNA 250 MG ORAL TABLET 2 today, then 1 daily for 4 d ays AZITHROMYCIN 01677530351 No Longer Active Elise Arell JOB ESTIMATOR Active TUSSIONEX PENNKINETIC ER 10-8 MG/5ML ORAL SUSPENSION E XTENDED RELEASE 5ml po q12hr PRN Cough HYDROCOD POLST-CHLORPHEN POLST 5 8481397810 No Longer Active Elise Arell JOB ESTIMATOR Active PREDNISONE 20 MG ORAL TABLET 2 tabs daily for 3 days, 1 tab daily for 3 days, 1/2 tab daily for 2 days PREDNISONE 82803930960 No Longer Active Jillina Frazell JOB ESTIMATOR Active AMOXICILLIN 500 MG ORAL CAPSULE 2 po BID x 10 days 201 09/29/08 AMOXICILLIN 83269018325 No Longer Active Jillina Frazell JOB ESTIMATOR Act nael SINGULAIR 10 MG ORAL TABLET 1 po qday for allergies 20 14/01/12 MONTELUKAST SODIUM 89567199341 No Longer Active Carlton Hu MD Active LEVAQUIN 500 MG ORAL TABLET 1 tablet by mouth daily 20 13/09/24 LEVOFLOXACIN 46166581122 No Longer Active Carlton Hu MD Acti ve FLUTICASONE PROPIONATE 50 MCG/ACT NASAL SUSPENSION 2 s prays each nostril daily for 2 weeks, then 1 spray each nostril daily. FLUTICASONE PROPIONATE 20330426099 Active Carlton Hu MD Active ZITHROMAX 250 MG ORAL TABLET 2 po today, then 1 po q days 2-5 20 13/08/10 AZITHROMYCIN 13883057555 No Longer Active Elise Garcia APRN Active XANAX 0.5 MG ORAL TABLET one tablet by mouth daily prn anxiety 2015 ALPRAZOLAM 92157585731 Active ALFREDO Holly Active CEFDINIR 300 MG ORAL CAPSULE 1 po BID x 10 days CEFDINIR 56414374626 No Longer Active Carlton Hu MD Active ZOCOR 40 MG ORAL TABLET 1 tab by mouth daily SI MVASTATIN 43598649028 No Longer Active Carlton Hu MD Active CYCLOBENZAPRINE HCL 10 MG ORAL TABLET 1 tablet by mouth BID prn had pain CYCLOBENZAPRINE HCL 95211125660 No Longer Active Jayden Hu MD Active LEVOFLOXACIN 500 MG ORAL TABLET 1 tab PO daily x 10 days LEVOFLOXACIN 68696898061 No Longer Active Carlton Hu MD Acti ve PREDNISONE 20 MG ORAL TABLET 3 tab PO qd x 2d, 2 tab P O qd x 2d, 1 tab PO qd x 2d, 1/2 tab PO qd x 2d PREDNISONE 31538455667 No Lo nger Active Carlton Hu MD Active FLUTICASONE PROPIONATE 50 MCG/ACT NASAL SUSPENSION 1 t o 2 sprays each nostril daily FLUTICASONE PROPIONATE 09310332112 No Longer Ac tive Blaine HERNANDEZ Active CHERATUSSIN AC 100-10 MG/5ML ORAL SYRUP 1 tsp by mouth every 4 hours as needed for cough GUAIFENESIN-CODEINE 68277348258 No Longe r Active Blaine HERNANDEZ Active PROMETHAZINE-CODEINE 6.25-10 MG/5ML ORAL SYRUP 1 tsp b y mouth every 6 hours if needed for cough PROMETHAZINE-CODEINE 05359074706 No Longer Active Blaine HERNANDEZ Active CHERATUSSIN AC 100-10 MG/5ML ORAL SYRUP 1 tsp by mouth every 4 hours as needed for cough GUAIFENESIN-CODEINE 46498783693 No Longe r Active Blaine HERNANDEZ Active ZITHROMAX Z-REYNA 250 MG ORAL TABLET 2 today, then 1 daily for 4 d ays AZITHROMYCIN 40712798611 No Longer Active Columba Raida Act nael ZITHROMAX 250 MG ORAL TABLET 2 po today, then 1 po q days 2-5 20 14/03/21 AZITHROMYCIN 17125208832 No Longer Active Carlton Hu MD Active ZITHROMAX Z-REYNA 250 MG ORAL TABLET 2 today, then 1 daily for 4 d ays AZITHROMYCIN 79622641297 No Longer Active Columba Raida Act nael AUGMENTIN 875-125 MG ORAL TABLET 1 po BID x 10 days 13/01/20 AMOXICILLIN-POT CLAVULANATE 43093779197 No Longer Active Diya De Guzman APRN Active ZITHROMAX 250 MG ORAL TABLET 2 po today, then 1 po q days 2-5 20 12/08/14 AZITHROMYCIN 80294282232 No Longer Active Carlton Hu MD Active TRAMADOL HCL 50 MG ORAL TABLET 1 po tid with ES Tylenol TRAMADOL HCL 83823819355 Active ALFREDO Holly Active PREMARIN 0.625 MG ORAL TABLET TAKE 1 TAB BY MOUTH DAILY ESTROGENS CONJUGATED 67667955651 No Longer Active Ridge W Shahriar DO A ctive CYMBALTA 30 MG ORAL CAPSULE DELAYED RELEASE PARTICLES 1 cap by mouth daily DULOXETINE HCL 69212561722 No Longer Active Ridge tam DO Active AMOXICILLIN 500 MG ORAL CAPSULE 1 tab by mouth 3 times daily x 10 days AMOXICILLIN 81173589669 No Longer Active Carlton bustamante MD Active AMOXICILLIN 500 MG ORAL CAPSULE 1 tab by mouth 3 times daily x 10 days AMOXICILLIN 08595276188 No Longer Active Carlton bustamante MD Active PROMETHAZINE-CODEINE 6.25-10 MG/5ML ORAL SYRUP 1 tsp b y mouth every 8 hours prn cough PROMETHAZINE-CODEINE 33410900397 No Longer Acti ve Carlton Hu MD Active MEDROL 4 MG ORAL TABLET THERAPY PACK 6 pills x 1 day, then 5 pills x 1 day then 4 pills x 1 day, then 3 pills x 1 day, then 2 pills x 1 day, then 1 pill x 1 day, then stop METHYLPREDNISOLONE 15115438991 No Long er Active Perez Mora MD Active AZITHROMYCIN 250 MG ORAL TABLET 2 po qd x 1 day, then 1 po q d x 4 days AZITHROMYCIN 47169202476 No Longer Active Perez Ambriz MD Active SYMBICORT 160-4.5 MCG/ACT INHALATION AEROSOL 2 puffs bid wit h rinse after BUDESONIDE-FORMOTEROL FUMARATE 96062346737 N o Longer Active Perez Mora MD Active LYRICA 75 MG ORAL CAPSULE TAKE 1 CAPSULE BY MOUTH TWICE DAILY PREGABALIN 00171291448 No Longer Active Carlton Hu MD Acti ve TOPAMAX 25 MG ORAL TABLET 1 qHS x 1 week, then 1 BID x 1 week, then 1 qAM and 2 qHS x 1 week, then 2 BID (migraine prevention) T OPIRAMATE 27121188210 No Longer Active Jerica FUENTES Active TOPAMAX 50 MG ORAL TABLET take 1 tab po BID for migraines. 07/02 TOPIRAMATE 28336274675 No Longer Active Jerica Osei Torin Active TRIAMCINOLONE ACETONIDE 0.1 % EXTERNAL CREAM apply three roger es daily prn rash TRIAMCINOLONE ACETONIDE 73240766950 No Longer Active Carlton Hu MD Active PAXIL 40 MG ORAL TABLET take 1 tab po qday for depression 0 PAROXETINE HCL 90766877960 Active Carlton Hu MD Active CHERATUSSIN AC 100-10 MG/5ML ORAL SYRUP 5ml po q6hr PRN Cough 20 13/04/14 GUAIFENESIN-CODEINE 03544157217 No Longer Active Carlton Hu MD Active MEDROL 4 MG ORAL TABLET THERAPY PACK 6 tabs on day 1, 5 tabs on day 2, 4 tabs on day 3, 3 tabs on day 4, 2 tabs on day 5, 1 tab on day 6 2013 METHYLPREDNISOLONE 86392422703 No Longer Active Perez Mora MD Active AZITHROMYCIN 250 MG ORAL TABLET 2 po qd x 1 day, then 1 po q d x 4 days AZITHROMYCIN 11664166024 No Longer Active Perez Ambriz MD Active PROPRANOLOL HCL 60 MG ORAL TABLET 1 PO Q D PROPRANOLOL HCL 19636344636 No Longer Active Perez Mora MD Activ e CHERATUSSIN AC 100-10 MG/5ML ORAL SYRUP take one tsp po Q 6h ours prn cough GUAIFENESIN-CODEINE 09758860514 No Longer Active Zia Mora MD Active AUGMENTIN 875-125 MG ORAL TABLET 1 tab by mouth twice daily with food AMOXICILLIN-POT CLAVULANATE 03390309323 No Longer Act nael Perez Mora MD Active CHERATUSSIN AC 100-10 MG/5ML ORAL SYRUP 1 tsp by mouth every 4 hours as needed for cough GUAIFENESIN-CODEINE 38259492104 No Longe r Active Hugo Restrepo MD Active ACETAMINOPHEN-CODEINE #3 300-30 MG ORAL TABLET 1 PO Q 4-6 HRS IN N PAIN ACETAMINOPHEN-CODEINE 62030365174 No Longer Active Hugo Restrepo MD Active LEVAQUIN 500 MG ORAL TABLET take one po QD LEVO FLOXACIN 45616431033 No Longer Active Griffin HERNANDEZ Active PREDNISONE 20 MG ORAL TABLET Take 3 tabs daily for 3 d ays, 2 tabs daily for 3 days, 1 tab daily for 3 days, 1/2 tab daily for 3 days 11/07 PREDNISONE 28771995939 No Longer Active Carlton Hu MD Acti ve AVELOX 400 MG ORAL TABLET 1 tab by mouth daily MOXIFLOXACIN HCL 17743917426 No Longer Active Carlton Hu MD Active CHERATUSSIN AC 100-10 MG/5ML ORAL SYRUP 1 tsp by mouth every 4 hours as needed for cough GUAIFENESIN-CODEINE 56007698174 No Longe r Active Hugo Restrepo MD Active AVELOX 400 MG ORAL TABLET 1 tab by mouth daily MOXIFLOXACIN HCL 58271225529 No Longer Active Marcy De La Rosa MD PhD Active TERBINAFINE HCL 250 MG ORAL TABLET 1 qDay T ERBINAFINE HCL 79093491655 No Longer Active Marcy De La Rosa MD PhD Active CHERATUSSIN AC 100-10 MG/5ML ORAL SYRUP 1 tsp by mouth every 4 hours as needed for cough GUAIFENESIN-CODEINE 31527122540 No Longe r Active Marcy De La Rosa MD PhD Active AVELOX 400 MG ORAL TABLET 1 tab by mouth daily MOXIFLOXACIN HCL 28922306695 No Longer Active Marcy De La Rosa MD PhD Active HYDROCODONE-ACETAMINOPHEN 5-325 MG ORAL TABLET 1 po q 6hr PRN co ugh HYDROCODONE-ACETAMINOPHEN 98774931990 No Longer Active Marcy De La Rosa MD PhD Active PREDNISONE 20 MG ORAL TABLET 2 tabs daily for 3 days, 1 tab daily for 3 days, 1/2 tab daily for 2 days PREDNISONE 82540023639 No Longer Active Carlton Hu MD Active CEFDINIR 300 MG ORAL CAPSULE by mouth twice a day 2011 CEFDINIR 63205716794 No Longer Active Carlton Hu MD Acti ve HYDROCHLOROTHIAZIDE 25 MG ORAL TABLET 1 TAB PO DAILY HYDROCHLOROTHIAZIDE 85759491384 Active Carlton Hu MD A ctive ACETAMINOPHEN-CODEINE #3 300-30 MG ORAL TABLET 1 tablet po q 4-6 hrs prn pain ACETAMINOPHEN-CODEINE 42003964175 No Longer Active Ridge Bess DO Active ZITHROMAX 250 MG ORAL TABLET 2 po today, then 1 po q days 2-5 20 03/07/07 AZITHROMYCIN 91905888995 No Longer Active Carlton Hu MD Active CHERATUSSIN AC 100-10 MG/5ML ORAL SYRUP take 1 tsp po q4-6 h ours prn cough GUAIFENESIN-CODEINE 24029392676 No Longer Active Jayden Hu MD Active ACETAMINOPHEN-CODEINE #3 300-30 MG ORAL TABLET 1 PO Q 4-6 HR PRN PAIN ACETAMINOPHEN-CODEINE 68138879341 No Longer Active Da raimundo Hu MD Active LORTAB 7.5-500 MG/15ML ORAL ELIXIR 7.5 ml po q 4 hour prn cough HYDROCODONE-ACETAMINOPHEN 87297983479 No Longer Active Carlton Hu MD Active PREDNISONE 20 MG ORAL TABLET 1 po bid 3 days, then 1 po q day 3 days PREDNISONE 09742710606 No Longer Active Carlton Hu MD Active CEFDINIR 300 MG ORAL CAPSULE by mouth twice a day 2011 CEFDINIR 22696091499 No Longer Active Carlton Hu MD Acti ve CEFDINIR 300 MG ORAL CAPSULE by mouth twice a day 2010 CEFDINIR 68746258020 No Longer Active Carlton Hu MD Acti ve CEFDINIR 300 MG ORAL CAPSULE by mouth twice a day 2010 CEFDINIR 37278263004 No Longer Active Carlton Hu MD Acti ve TESSALON PERLES 100 MG ORAL CAPSULE 1 tablet by mouth 3 times daily as needed for cough BENZONATATE 62076813011 No Longer Active Carlton Hu MD Active CEFDINIR 300 MG ORAL CAPSULE by mouth twice a day 2010 CEFDINIR 16401691203 No Longer Active Carlton Hu MD Acti ve ZITHROMAX Z-REYNA 250 MG ORAL TABLET 2 today, then 1 daily for 4 d ays AZITHROMYCIN 60643991918 No Longer Active Hugo Restrepo MD Active TESSALON PERLES 100 MG ORAL CAPSULE 1 tablet by mouth 3 times daily as needed for cough TESSALON PERLES 100 MG ORAL CAPSULE 55243 7 BENZONATATE Inactive PREDNISONE 20 MG ORAL TABLET 1 po bid 3 days, then 1 po q day 3 days PREDNISONE 20 MG ORAL TABLET 390609 PREDNISONE Greer ctive LORTAB 7.5-500 MG/15ML ORAL ELIXIR 7.5 ml po q 4 hour prn cough LORTAB 7.5-500 MG/15ML ORAL ELIXIR HYDROCODONE-A CETAMINOPHEN Inactive ACETAMINOPHEN-CODEINE #3 300-30 MG ORAL TABLET 1 PO Q 4-6 HR PRN PAIN ACETAMINOPHEN-CODEINE #3 300-30 MG ORAL TABLET 9 37379 ACETAMINOPHEN-CODEINE Inactive CHERATUSSIN AC 100-10 MG/5ML ORAL SYRUP take 1 tsp po q4-6 h ours prn cough CHERATUSSIN AC 100-10 MG/5ML ORAL SYRUP 895442 GUAIFENESIN-CODEINE Inactive ACETAMINOPHEN-CODEINE #3 300-30 MG ORAL TABLET 1 tablet po q 4-6 hrs prn pain ACETAMINOPHEN-CODEINE #3 300-30 MG ORAL TABLET 476309 ACETAMINOPHEN-CODEINE Inactive HYDROCODONE-ACETAMINOPHEN 5-325 MG ORAL TABLET 1 po q 6hr PRN co ugh HYDROCODONE-ACETAMINOPHEN 5-325 MG ORAL TABLET 072706 HYDROCODONE-ACETAMINOPHEN Inactive AVELOX 400 MG ORAL TABLET 1 tab by mouth daily AVELOX 400 MG ORAL TABLET MOXIFLOXACIN HCL Inactive CHERATUSSIN AC 100-10 MG/5ML ORAL SYRUP 1 tsp by mouth every 4 hours as needed for cough CHERATUSSIN AC 100-10 MG/5ML ORAL SYRUP 9 21135 GUAIFENESIN-CODEINE Inactive TERBINAFINE HCL 250 MG ORAL TABLET 1 qDay 07/08 TERBINAFINE HCL 250 MG ORAL TABLET 159586 TERBINAFINE HCL Inactive CHERATUSSIN AC 100-10 MG/5ML ORAL SYRUP 1 tsp by mouth every 4 hours as needed for cough CHERATUSSIN AC 100-10 MG/5ML ORAL SYRUP 9 99873 GUAIFENESIN-CODEINE Inactive ACETAMINOPHEN-CODEINE #3 300-30 MG ORAL TABLET 1 PO Q 4-6 HRS IN N PAIN ACETAMINOPHEN-CODEINE #3 300-30 MG ORAL TABLET 929829 ACETAMINOPHEN-CODEINE Inactive CHERATUSSIN AC 100-10 MG/5ML ORAL SYRUP 1 tsp by mouth every 4 hours as needed for cough CHERATUSSIN AC 100-10 MG/5ML ORAL SYRUP 9 75137 GUAIFENESIN-CODEINE Inactive AUGMENTIN 875-125 MG ORAL TABLET 1 tab by mouth twice daily with food AUGMENTIN 875-125 MG ORAL TABLET AMOXICIL MADELINE-POT CLAVULANATE Inactive CHERATUSSIN AC 100-10 MG/5ML ORAL SYRUP take one tsp po Q 6h ours prn cough CHERATUSSIN AC 100-10 MG/5ML ORAL SYRUP 363581 GUAIFENESIN-CODEINE Inactive PROPRANOLOL HCL 60 MG ORAL TABLET 1 PO Q D PROPRANOLOL HCL 60 MG ORAL TABLET 326022 PROPRANOLOL HCL Inactive TOPAMAX 50 MG ORAL TABLET take 1 tab po BID for migraines. 07/02 TOPAMAX 50 MG ORAL TABLET 691904 TOPIRAMATE Inacti ve TOPAMAX 25 MG ORAL TABLET 1 qHS x 1 week, then 1 BID x 1 week, then 1 qAM and 2 qHS x 1 week, then 2 BID (migraine prevention) TOPAMAX 25 MG ORAL TABLET 994606 TOPIRAMATE Inactive LYRICA 75 MG ORAL CAPSULE TAKE 1 CAPSULE BY MOUTH TWICE DAILY LYRICA 75 MG ORAL CAPSULE 318373 PREGABALIN Inactive SYMBICORT 160-4.5 MCG/ACT INHALATION AEROSOL 2 puffs bid wit h rinse after SYMBICORT 160-4.5 MCG/ACT INHALATION AEROSOL BUDESONIDE- FORMOTEROL FUMARATE Inactive PROMETHAZINE-CODEINE 6.25-10 MG/5ML ORAL SYRUP 1 tsp b y mouth every 8 hours prn cough PROMETHAZINE-CODEINE 6.25-10 MG/ 5ML ORAL SYRUP 515119 PROMETHAZINE-CODEINE Inactive CYMBALTA 30 MG ORAL CAPSULE DELAYED RELEASE PARTICLES 1 cap by mouth daily CYMBALTA 30 MG ORAL CAPSULE DELAYED RELE ASE PARTICLES 568314 DULOXETINE HCL Inactive PREMARIN 0.625 MG ORAL TABLET TAKE 1 TAB BY MOUTH DAILY PREMARIN 0.625 MG ORAL TABLET ESTROGENS CONJUGATED Inactive CHERATUSSIN AC 100-10 MG/5ML ORAL SYRUP 1 tsp by mouth every 4 hours as needed for cough CHERATUSSIN AC 100-10 MG/5ML ORAL SYRUP 9 44522 GUAIFENESIN-CODEINE Inactive PROMETHAZINE-CODEINE 6.25-10 MG/5ML ORAL SYRUP 1 tsp b y mouth every 6 hours if needed for cough PROMETHAZINE-CODEINE 6.25-10 MG/5ML ORAL SYRUP 725347 PROMETHAZINE-CODEINE Inactive CHERATUSSIN AC 100-10 MG/5ML ORAL SYRUP 1 tsp by mouth every 4 hours as needed for cough CHERATUSSIN AC 100-10 MG/5ML ORAL SYRUP 9 42773 GUAIFENESIN-CODEINE Inactive FLUTICASONE PROPIONATE 50 MCG/ACT NASAL SUSPENSION 1 t o 2 sprays each nostril daily FLUTICASONE PROPIONATE 50 MCG/AC T NASAL SUSPENSION 9638163 FLUTICASONE PROPIONATE Inactive PREDNISONE 20 MG ORAL TABLET 3 tab PO qd x 2d, 2 tab P O qd x 2d, 1 tab PO qd x 2d, 1/2 tab PO qd x 2d PREDNISONE 20 MG ORAL TAB LET 295093 PREDNISONE Inactive LEVOFLOXACIN 500 MG ORAL TABLET 1 tab PO daily x 10 days LEVOFLOXACIN 500 MG ORAL TABLET 373823 LEVOFLOXACIN Inactive CYCLOBENZAPRINE HCL 10 MG ORAL TABLET 1 tablet by mouth BID prn had pain CYCLOBENZAPRINE HCL 10 MG ORAL TABLET 933675 CYCLOBENZAPRINE HCL Inactive ZOCOR 40 MG ORAL TABLET 1 tab by mouth daily 4 ZOCOR 40 MG ORAL TABLET 598200 SIMVASTATIN Inactive TUSSIONEX PENNKINETIC ER 10-8 MG/5ML [...] FLUTICASONE PROPIO EFE 50 MCG/ACT NASAL SUSPENSION 7396441 FLUTICASONE PROPIONATE Inactive TUSSIONEX PENNKINETIC ER 10-8 MG/5ML ORAL SUSPENSION E XTENDED RELEASE 5 mL PO q 12 hrs PRN cough TUSSIONEX PENNKINETI C ER 10-8 MG/5ML ORAL SUSPENSION EXTENDED RELEASE HYDROCOD POLST-CHLORPHEN POLST I nactive LYRICA 100 MG ORAL CAPSULE Take 1 tab po BID for fibromyalgia 20 11/08/21 LYRICA 100 MG ORAL CAPSULE 213634 PREGABALIN Inact nael TUSSIONEX PENNKINETIC ER 10-8 [...] three days PREDNISONE 20 MG ORAL TABLET 780010 PREDNIS ONE Inactive PROAIR HFA 108 (90 BASE) MCG/ACT INHALATION AEROSOL SO LUTION 2 puffs four times a day as needed PROAIR HFA 108 (90 B ASE) MCG/ACT INHALATION AEROSOL SOLUTION ALBUTEROL SULFATE Inactive PREDNISONE 20 MG ORAL TABLET two tabs by mouth today, then one tab by mouth days two and three and four PREDNISONE 20 MG ORAL TAB LET 168811 PREDNISONE Inactive TUSSIONEX PENNKINETIC ER 10-8 MG/5ML [...] bid 04/20 TOPAMAX 100 MG ORAL TABLET 264634 TOPIRAMATE Inactive CYMBALTA 30 MG ORAL CAPSULE DELAYED RELEASE PARTICLES 1 cap by mouth daily for depression CYMBALTA 30 MG ORAL CAPSULE DELAYED RELEASE PARTICLES 086164 DULOXETINE HCL Inactive TYLENOL WITH CODEINE #3 300-30 MG ORAL TABLET 1-2 po q6hr PRN Pa in TYLENOL WITH CODEINE #3 300-30 MG ORAL TABLET [id number] ACETAMINOPHEN-CODEINE Inactive TYLENOL WITH CODEINE #3 300-30 MG ORAL TABLET TYLENOL WITH CODEINE #3 300-30 MG ORAL TABLET 320294 ACETAMINOPHEN-CODEINE Inactive TRIAMCINOLONE ACETONIDE 0.1 % EXTERNAL CREAM apply bid spari ngly to rash TRIAMCINOLONE ACETONIDE 0.1 % EXTERNAL CREAM 101 7804 TRIAMCINOLONE ACETONIDE Inactive ZITHROMAX Z-REYNA 250 MG ORAL TABLET 2 today, then 1 daily for 4 d ays ZITHROMAX Z-REYNA 250 MG ORAL TABLET 364366 AZITHROMYCIN Inactive CEFDINIR 300 MG ORAL CAPSULE by mouth twice a day 2010 CEFDINIR 300 MG ORAL CAPSULE 20020704 CEFDINIR Inactive CEFDINIR 300 MG ORAL CAPSULE by mouth twice a day 2010 CEFDINIR 300 MG ORAL CAPSULE 038769 CEFDINIR Inactive CEFDINIR 300 MG ORAL CAPSULE by mouth twice a day 2010 CEFDINIR 300 MG ORAL CAPSULE 20020704 CEFDINIR Inactive CEFDINIR 300 MG ORAL CAPSULE by mouth twice a day 2011 CEFDINIR 300 MG ORAL CAPSULE 187939 CEFDINIR Inactive ZITHROMAX 250 MG ORAL TABLET 2 po today, then 1 po q days 2-5 03/07/07 ZITHROMAX 250 MG ORAL TABLET 891918 AZITHROMYCIN [facility] CEFDINIR 300 MG ORAL CAPSULE by mouth twice a day 2011 CEFDINIR 300 MG ORAL CAPSULE 20020704 CEFDINIR Inactive PREDNISONE 20 MG ORAL TABLET 2 tabs daily for 3 days, 1 tab daily for 3 days, 1/2 tab daily for 2 days PREDNISONE 20 MG ORAL T ABLET 878133 PREDNISONE Inactive AVELOX 400 MG ORAL TABLET [...] days 11/07 PREDNISONE 20 MG ORAL TABLET 783735 PREDNISONE Inactive LEVAQUIN 500 MG ORAL TABLET take one po QD LEVAQUIN 500 MG ORAL TABLET 426589 LEVOFLOXACIN Inactive AZITHROMYCIN 250 MG ORAL TABLET 2 po qd x 1 day, then 1 po q d x 4 days AZITHROMYCIN 250 MG ORAL TABLET 452891 AZITHROMY GIOVANNI Inactive MEDROL 4 MG ORAL TABLET THERAPY PACK 6 tabs on day 1, 5 tabs on day 2, 4 tabs on day 3, 3 tabs on day 4, 2 tabs on day 5, 1 tab on day 6 2013 MEDROL 4 MG ORAL TABLET THERAPY PACK 541202 METHYLPREDNISOLONE [facility] CHERATUSSIN AC 100-10 MG/5ML ORAL SYRUP 5ml po q6hr PRN Cough 20 13/04/14 CHERATUSSIN AC 100-10 MG/5ML ORAL SYRUP 031957 GUAIFENE SIN-CODEINE Inactive TRIAMCINOLONE ACETONIDE 0.1 % EXTERNAL CREAM apply three roger es daily prn rash TRIAMCINOLONE ACETONIDE 0.1 % EXTERNAL CREAM 101 4314 TRIAMCINOLONE ACETONIDE Inactive AZITHROMYCIN 250 MG ORAL TABLET 2 po qd x 1 day, then 1 po q d x 4 days AZITHROMYCIN 250 MG ORAL TABLET 225740 AZITHROMY GIOVANNI Inactive MEDROL 4 MG ORAL TABLET THERAPY PACK 6 pills x 1 day, then 5 pills x 1 day then 4 pills x 1 day, then 3 pills x 1 day, then 2 pills x 1 day, then 1 pill x 1 day, then stop MEDROL 4 MG ORAL TABLET THERAPY PACK 770049 METHYLPREDNISOLONE Inactive AMOXICILLIN 500 MG ORAL CAPSULE 1 tab by mouth 3 times daily x 10 days AMOXICILLIN 500 MG ORAL CAPSULE 500080 AMOXICILL IN Inactive AMOXICILLIN 500 MG ORAL CAPSULE 1 tab by mouth 3 times daily x 10 days AMOXICILLIN 500 MG ORAL CAPSULE 440213 AMOXICILL IN Inactive ZITHROMAX 250 MG ORAL TABLET 2 po today, then 1 po q days 2-5 20 12/08/14 ZITHROMAX 250 MG ORAL TABLET 567620 AZITHROMYCIN [facility] AUGMENTIN 875-125 MG ORAL TABLET 1 po BID x 10 days 13/01/20 AUGMENTIN 875-125 MG ORAL TABLET AMOXICILLIN-POT CLAVULANATE Inactive ZITHROMAX Z-REYNA 250 MG ORAL TABLET 2 today, then 1 daily for 4 d ays ZITHROMAX Z-REYNA 250 MG ORAL TABLET 046788 AZITHROMYCIN Inactive ZITHROMAX 250 MG ORAL TABLET 2 po today, then 1 po q days 2-5 20 14/03/21 ZITHROMAX 250 MG ORAL TABLET 178285 AZITHROMYCIN [facility] ZITHROMAX Z-REYNA 250 MG ORAL TABLET 2 today, then 1 daily for 4 d ays ZITHROMAX Z-REYNA 250 MG ORAL TABLET 703161 AZITHROMYCIN Inactive CEFDINIR 300 MG ORAL CAPSULE 1 po BID x 10 days 06/21 CEFDINIR 300 MG ORAL CAPSULE 20020704 CEFDINIR Inactive ZITHROMAX 250 MG ORAL TABLET 2 po today, then 1 po q days 2-5 20 13/08/10 ZITHROMAX 250 MG ORAL TABLET 831039 AZITHROMYCIN [facility] LEVAQUIN 500 MG ORAL TABLET 1 tablet by mouth daily 13/09/24 LEVAQUIN 500 MG ORAL TABLET 358118 LEVOFLOXACIN Inactive SINGULAIR 10 MG ORAL TABLET 1 po qday for allergies 20 14/01/12 SINGULAIR 10 MG ORAL TABLET 379819 MONTELUKAST SODIUM Inactive AMOXICILLIN 500 MG ORAL CAPSULE 2 po BID x 10 days 201 09/29/08 AMOXICILLIN 500 MG ORAL CAPSULE 815636 AMOXICILLIN Inactive PREDNISONE 20 MG ORAL TABLET 2 tabs daily for 3 days, 1 tab daily for 3 days, 1/2 tab daily for 2 days PREDNISONE 20 MG ORAL T ABLET 039560 PREDNISONE Inactive ZITHROMAX Z-REYNA 250 MG ORAL TABLET 2 today, then 1 daily for 4 d ays ZITHROMAX Z-REYNA 250 MG ORAL TABLET 178382 AZITHROMYCIN Inactive PREDNISONE 20 MG ORAL TABLET 2 tabs daily for 3 days, 1 tab daily for 3 days, 1/2 tab daily for 2 days PREDNISONE 20 MG ORAL T ABLET 596522 PREDNISONE Inactive ZITHROMAX 250 MG ORAL TABLET 2 po today, then 1 po q days 2-5 20 14/09/04 ZITHROMAX 250 MG ORAL TABLET 480127 AZITHROMYCIN [facility] AMOXICILLIN 500 MG ORAL CAPSULE 1 cap by mouth three times a day AMOXICILLIN 500 MG ORAL CAPSULE 900671 AMOXICILLIN Inactive TERBINAFINE HCL 250 MG ORAL TABLET 1 qDay for nail fungus 7 TERBINAFINE HCL 250 MG ORAL TABLET 499365 TERBINAFINE HCL Inact nael AUGMENTIN 875-125 MG ORAL TABLET 1 po BID x 10 days 16/03/22 AUGMENTIN 875-125 MG ORAL TABLET AMOXICILLIN-POT CLAVULANATE Inactive PREDNISONE 20 MG ORAL TABLET 2 po qd x 5 days PREDNISONE 20 MG ORAL TABLET 800039 PREDNISONE Inactive AZITHROMYCIN 250 MG ORAL TABLET 2 po qd x 1 day, then 1 po q d x 4 days AZITHROMYCIN 250 MG ORAL TABLET 958126 AZITHROMY GIOVANNI Inactive PREDNISONE 50 MG ORAL TABLET Take 50 mg dialy for 6 day s 7 PREDNISONE 50 MG ORAL TABLET 818139 PREDNISONE Inactive AUGMENTIN 875-125 MG ORAL TABLET 1 po BID x 10 days 18/04/16 AUGMENTIN 875-125 MG ORAL TABLET AMOXICILLIN-POT CLAVULANATE Inactive DOXYCYCLINE HYCLATE 100 MG ORAL CAPSULE 1 cap by mouth twice latasha ly DOXYCYCLINE HYCLATE 100 MG ORAL CAPSULE 9976354 DOXYCYCL INE HYCLATE Inactive PREDNISONE 20 MG ORAL TABLET Take 2 tabs day 1 and 2 and 1 t ab days 3 and 4 PREDNISONE 20 MG ORAL TABLET 088205 PREDNISONE Inactive AMOXICILLIN 500 MG ORAL CAPSULE 1 cap by mouth twice daily 10/21 AMOXICILLIN 500 MG ORAL CAPSULE 407128 AMOXICILLIN Inactive TRIAMCINOLONE ACETONIDE 0.1 % EXTERNAL OINTMENT Apply to affected areas TID PRN Rash/Itching for up 2 weeks TRIAMCINOLON E ACETONIDE 0.1 % EXTERNAL OINTMENT 8657369 TRIAMCINOLONE ACETONIDE Inactive ACYCLOVIR 800 MG ORAL TABLET 1 po 5 times daily x 7 days ACYCLOVIR 800 MG ORAL TABLET 300089 ACYCLOVIR Inactive Vital Signs Date Name Value [...] Panel - Chemistry sodium, serum 137 mmol/L 138-948 1785/10/08 carbon dioxide, venous blood 29.9 mmol/L 21.0-32 [...] 0.50 mg/dL 0.00-1.00 cholesterol, serum 324 mg/dL 065-459 3816/10/08 triglyceride, serum, fasting 130 mg/dL 30-200 HDL [...] negative Encounters Code Encounter Date Provider Facility [id number] Vst-Est Level IV 09:06:31 Jadon Hu MD [facility] CPT-20416 Level 3 Est. Patient 14:16:41 ALICIA lion APRN [facility] CPT-37006 Level 3 Est. Patient 13:57:55 CDT David Tin dle [facility] CPT-90850 Level 3 Est. Patient 16:08:07 CDT David Tin dle [facility] CPT-44502 Level 3 Est. Patient 16:53:54 CDT May haas MD [facility] CPT-36975 [id number] Vst-Est Level IV 08:41:[address] Carlton Hu MD [facility] CPT-18912 Level 3 Est. Patient 09:46:49 FOUNDRY METALLURGIST David Tin dle [facility] CPT-49434 [id number] Vst-Est Level III 11:12:16 CDT Yanet Bess DO [facility] CPT-89596 Level 3 Est. Patient 11:34:49 FOUNDRY METALLURGIST Perez Mora MD [facility] CPT-33731 Level 4 Est. Patient 09:51:32 FOUNDRY METALLURGIST Carlton rich MD [facility] CPT-70354 Level 3 Est. Patient 10:26:00 FOUNDRY METALLURGIST Elise stephenson [facility] CPT-00210 Level 3 Est. Patient 13:35:41 FOUNDRY METALLURGIST Carlton rich MD [facility] CPT-18940 Level 3 Est. Patient 10:03:52 FOUNDRY METALLURGIST Carlton rich MD [facility] CPT-10793 Level 3 Est. Patient 12:17:50 CDT Hugo Restrepo MD [facility] CPT-09179 Level 3 Est. Patient 13:42:38 CDT Elise stephenson [facility] CPT-66504 Level 3 Est. Patient 13:23:51 CDT Diya cobian [facility] CPT-73226 Level 3 Est. Patient 14:22:19 FOUNDRY METALLURGIST Diya cobian [facility] CPT-49458 Level 3 Est. Patient 10:11:46 CDT Carlton rich MD [facility] CPT-81992 Level 3 Est. Patient 17:29:43 CDT Elise Are ll [facility] CPT-69995 Level 3 Est. Patient 11:58:06 CDT Elise Are ll [facility] CPT-58036 Level 4 Est. Patient 14:36:51 CDT Carlton rich MD [facility]-51598 Level 3 Est. Patient 18:16:00 FOUNDRY METALLURGIST Blaine Freeman [facility] CPT-96852 Level 3 Est. Patient 09:45:49 FOUNDRY METALLURGIST Carlton rich MD [facility] CPT-06956 Level 3 Est. Patient 13:19:20 CDT Carlton rich MD [facility] CPT-41824 Level 3 Est. Patient 13:06:43 CDT Ridge tam DO [facility] CPT-55790 Level 3 Est. Patient 10:03:07 CDT Perez Mora MD [facility]-74589 Level 3 Est. Patient 19:50:35 FOUNDRY METALLURGIST Carlton rich MD [facility] CPT-50229 Level 4 Est. Patient 18:05:01 FOUNDRY METALLURGIST Carlton rich MD [facility] CPT-33788 Level 3 Est. Patient 10:45:55 FOUNDRY METALLURGIST Hugo Restrepo MD [facility] CPT-80207 Level 3 Est. Patient 14:12:49 CDT Griffin lincoln [facility]-62599 Level 3 Est. Patient 17:37:24 CDT Carlton rich MD [facility]-01148 Level 3 Est. Patient 16:51:54 CDT Carlton rich MD [facility] CPT-28619 Level 3 Est. Patient 12:18:11 CDT Hugo Restrepo MD [facility] CPT-31425 Level 3 Est. Patient 11:30:25 CDT Marcy crisostomo MD PhD [facility] CPT-78280 Level 3 Est. Patient 12:00:47 FOUNDRY METALLURGIST Carlton rich MD [facility] CPT-13981 Level 3 Est. Patient 16:31:06 FOUNDRY METALLURGIST Carlton rich MD [facility] CPT-86262 Level 3 Est. Patient 16:23:24 FOUNDRY METALLURGIST Ridge tam [facility] CPT-72181 Level 3 Est. Patient 12:34:12 CDT Carlton rich MD [facility] CPT-34683 Level 2 Est. Patient 15:43:33 CDT Robi armstrong MD [facility] CPT-99820 Level 4 Est. Patient 14:04:44 CDT Carlton rich MD [facility] CPT-71404 Level 3 Est. Patient 05:47:59 CDT Ridge tam [facility] CPT-78343 Level 3 Est. Patient 13:12:53 FOUNDRY METALLURGIST Carlton rich MD [facility] CPT-89735 Level 3 Est. Patient 14:26:53 CDT Hugo Restrepo MD [facility] Procedures Code Procedure Name Date Entry Date Standard Desc ription CPT-13762 Venipuncture Draw Fee 15:53:34 CDT CPT-000 Give Appropriate Flu Vaccine 14:14:31 CDT 2 CPT-J1040 Depo Medrol 80 mg (Methyl Prednisolone A cetate) 10:42:44 CDT CPT-J1100 Decadron 8mg (Dexamethasone) 10:42:44 CDT 2 CPT-J0696 Rocephin 1gm Inj Solr 14:32:13 CDT CPT-J1020 Depo Medrol 60 mg (Methyl Prednisolone A cetate) 14:32:13 CDT CPT-J1100 Decadron 6mg (Dexamethasone) 14:32:13 CDT 2 CPT-69892 Hip bilat min 2V w AP pelvis 13:16:20 CDT 2 CPT-59137 Pelvis only 13:07:33 CDT CPT-62989 Spec Collection and Handling Fee 11:25:12 C DT CPT-50051 Fluzone Quadrivalent Intramuscular Suspe nsion 0.5 ML 14:31:55 CDT CPT-49831 Abx/Therapy Injection 13:28:47 FOUNDRY METALLURGIST CPT-J2930 Solu Medrol 125 mg (Methyl Prednisolone Sodium Succinate) 12:00:47 FOUNDRY METALLURGIST CPT-43213 Venipuncture Draw Fee 11:33:31 CDT CPT-07966 EKG Trac and Interp 11:21:09 CDT CPT-32862 Chest 2V Frontal and Lat 11:21:09 CDT 12/15 CPT-39079 Venipuncture Draw Fee 08:02:34 CDT CPT-49428 Chest 2V Frontal and Lat 05:47:59 CDT 06/05
--- OUTSIDE RECORDS SUMMARY | 2019-10-08 09:57 | XMS REPORT | Clinical Summary ---
Author Author Caitlin, Juliana Martinez Organization [facility] Address Unknown Phone Unavailable [...] 35.0-35.9, adult BMI 35-35.9 Refinement David Marianne [employer]ESS BOX CUSTODIAN Body Mass Index 35.0-35.9, adult BMI 33-33.9 Active David Marianne [employer]OX CUSTODIAN Body Mass Index 35.0-35.9, adult Upper respiratory [...] Acute pharyngitis Shingles 053.9 Active David Marianne [employer]OX CUSTODIAN Herpes zoster without mention of complication Allergic rhinitis, seasonal 477.0 Active Carlton Hu MD Allergic rhinitis due to pollen IBS (irritable bowel syndrome) 564.1 Active 01/06 Carlton uH MD Irritable bowel syndrome GERD 530.81 Active [...] mouth night ly, for cholesterol ATORVASTATIN CALCIUM 52948099742 Active Columba ida Active TRIAMCINOLONE ACETONIDE 0.1 % EXTERNAL CREAM apply bid spari ngly to rash TRIAMCINOLONE ACETONIDE 24387519450 No Longer Active Carlton Hu MD Active TYLENOL WITH CODEINE #3 300-30 MG ORAL TABLET ACETAMINOPHEN-CODEINE 73318434154 No Longer Active Carlton Hu MD Active TYLENOL WITH CODEINE #3 300-30 MG ORAL TABLET 1-2 po q6hr PRN Pa in ACETAMINOPHEN-CODEINE 96141108313 No Longer Active David Lopes AP RN Active ACYCLOVIR 800 MG ORAL TABLET 1 po 5 times daily x 7 days ACYCLOVIR 48391338109 No Longer Active David Lopes [employer]OX CUSTODIAN Active TOPAMAX 100 MG ORAL TABLET 1 by mouth twice daily TOPIRAMATE 14708580319 Active Columba Raida Active TRIAMCINOLONE ACETONIDE 0.1 % EXTERNAL OINTMENT Apply to affected areas TID PRN Rash/Itching for up 2 weeks TRIAMCINOLONE ACETON KAYLA 31298675430 No Longer Active David Marianne [employer]OX CUSTODIAN Active AMOXICILLIN 500 MG ORAL CAPSULE 1 cap by mouth twice daily 10/21 AMOXICILLIN 18007413697 No Longer Active David Marianne [employer]OX CUSTODIAN Active ELMIRON 100 MG ORAL CAPSULE 2 capsules in the morning and 1 capsule at night PENTOSAN POLYSULFATE SODIUM 37073362302 Active Cinthia cutler PLATEN DRIER 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 CYMBALTA 30 MG ORAL CAPSULE DELAYED RELEASE PARTICLES 1 cap by mouth daily for depression DULOXETINE HCL 71877182769 No Longer Active Carlton Hu MD Active CYMBALTA 60 MG ORAL CAPSULE DELAYED RELEASE PARTICLES 1 cap by mouth daily for mood and pain DULOXETINE HCL 67168585194 Active Carlton Hu MD Active TUSSIONEX PENNKINETIC ER 10-8 MG/5ML ORAL SUSPENSION E XTENDED RELEASE 5ml po q12hr PRN Cough HYDROCOD POLST-CHLORPHEN POLST 17617729562 Active Carlton Hu MD Active PREDNISONE 20 MG ORAL TABLET Take 2 tabs day 1 and 2 and 1 t ab days 3 and 4 PREDNISONE 60257460663 No Longer Active David Marianne [employer]OX CUSTODIAN Active DOXYCYCLINE HYCLATE 100 MG ORAL CAPSULE 1 cap by mouth twice latasha ly DOXYCYCLINE HYCLATE 63841267714 No Longer Active David Marianne PRESS BOX CUSTODIAN Active TOPAMAX 100 MG ORAL TABLET Take 1 tablet po bid TOPIRAMATE 75687054673 No Longer Active David Marianne PRESS BOX CUSTODIAN Active TUSSIONEX PENNKINETIC ER 10-8 MG/5ML ORAL SUSPENSION E XTENDED RELEASE 5ml po q12hr PRN Cough HYDROCOD POLST-CHLORPHEN POLST 5 7825719362 No Longer Active David Marianne [employer]ESS BOX CUSTODIAN Active AUGMENTIN 875-125 MG ORAL TABLET 1 po BID x 10 days 18/04/16 AMOXICILLIN-POT CLAVULANATE 94926328923 No Longer Active David Marianne [employer]OX CUSTODIAN Active PREDNISONE 50 MG ORAL TABLET Take 50 mg dialy for 6 day s 7 PREDNISONE 33547158291 No Longer Active David Lopes APRN Active TUSSIONEX PENNKINETIC ER 10-8 MG/5ML ORAL SUSPENSION E XTENDED RELEASE 5ml po q12hr PRN Cough HYDROCOD POLST-CHLORPHEN POLST 5 5312013631 No Longer Active Cherelle Torres RN Active PREDNISONE 20 MG ORAL TABLET two tabs by mouth today, then one tab by mouth days two and three and four PREDNISONE 68443325066 No Lo nger Active Cherelle Torres RN Active AZITHROMYCIN 250 MG ORAL TABLET 2 po qd x 1 day, then 1 po q d x 4 days AZITHROMYCIN 25033971727 No Longer Active Ridge Bess DO Active PREDNISONE 20 MG ORAL TABLET 2 po qd x 5 days P REDNISONE 50465916864 No Longer Active Perez Mora MD Active PROAIR HFA 108 (90 BASE) MCG/ACT INHALATION AEROSOL SO LUTION 2 puffs four times a day as needed ALBUTEROL SULFATE 58165543819 No Long er Active Becky FUENTES Active ASPIRIN 81 MG ORAL TABLET 1 po qd ASPIRIN 90319494699 Active Carlton Hu MD Active PREDNISONE 20 MG ORAL TABLET 1 tab twice daily for 3 d ay, then one daily for three days PREDNISONE 59609351779 No Longer Active Carlton Hu MD Active AUGMENTIN 875-125 MG ORAL TABLET 1 po BID x 10 days 20 16/03/22 AMOXICILLIN-POT CLAVULANATE 54006104584 No Longer Active Elise Garcia APRN Active TERBINAFINE HCL 250 MG ORAL TABLET 1 qDay for nail fungus 7 TERBINAFINE HCL 38505816657 No Longer Active Carlton Hu MD A ctive AMOXICILLIN 500 MG ORAL CAPSULE 1 cap by mouth three times a day AMOXICILLIN 08573972836 No Longer Active Carlton Hu MD Active ELMIRON 100 MG ORAL CAPSULE 2 tablets in the am and 1 tablet at hs PENTOSAN POLYSULFATE SODIUM 97203437334 No Longer Active Robert jade uH MD Active MUCINEX D 60-600 MG ORAL TABLET EXTENDED RELEASE 12 HOUR 1 t ab po q am PSEUDOEPHEDRINE-GUAIFENESIN 84053643181 No Longer Act nael Carlton Hu MD Active MUCINEX DM MAXIMUM STRENGTH 60-1200 MG ORAL TABLET EXT ENDED RELEASE 12 HOUR 1 tab po q am DEXTROMETHORPHAN-GUAIFENESIN 73458023345 No Longer Active Carlton Hu MD Active TUSSIONEX PENNKINETIC ER 10-8 MG/5ML ORAL SUSPENSION E XTENDED RELEASE 5ml po q12hr PRN Cough HYDROCOD POLST-CHLORPHEN POLST 5 0010770379 No Longer Active Carlton Hu MD Active POTASSIUM CHLORIDE ER 20 MEQ ORAL TABLET EXTENDED RELE ASE Take 1 by mouth 4 times daily for 7 days POTASSIUM CHLORIDE 65142653243 No Longer Active Carlton Hu MD Active ZITHROMAX 250 MG ORAL TABLET 2 po today, then 1 po q days 2-5 20 14/09/04 AZITHROMYCIN 44560326454 No Longer Active Elise Garcia APRN Active TUSSIONEX PENNKINETIC ER 10-8 MG/5ML ORAL SUSPENSION E XTENDED RELEASE 5 ml twice a day as needed for cough HYDROCOD POLST-CHLORPH EN POLST 69611253760 No Longer Active Elise Garcia APRN Active MONTELUKAST SODIUM 10 MG ORAL TABLET 1 po daily for Allergy MONTELUKAST SODIUM 01122149973 Active Carlton Hu MD Ac tive TUSSIONEX PENNKINETIC ER 10-8 MG/5ML ORAL SUSPENSION E XTENDED RELEASE 5ml po q12hr PRN Cough HYDROCOD POLST-CHLORPHEN POLST 5 7233934430 No Longer Active Hugo Restrepo MD Active GABAPENTIN 100 MG ORAL CAPSULE 1 po BID for fibromyalgia GABAPENTIN 54137377915 Active ALFREDO Holly Active LYRICA 100 MG ORAL CAPSULE Take 1 tab po BID for fibromyalgia 20 11/08/21 PREGABALIN 07820870294 No Longer Active Elise Garcia APRN A ctive PREDNISONE 20 MG ORAL TABLET 2 tabs daily for 3 days, 1 tab daily for 3 days, 1/2 tab daily for 2 days PREDNISONE 31045233383 No Longer Active Jillina Frakerriel PR[employer]OX CUSTODIAN Active TUSSIONEX PENNKINETIC ER 10-8 MG/5ML ORAL SUSPENSION E XTENDED RELEASE 5 mL PO q 12 hrs PRN cough HYDROCOD POLST-CHLORPHEN POLST 197550 79173 No Longer Active Jillina Frazell PRESS BOX CUSTODIAN Active FLUTICASONE PROPIONATE 50 MCG/ACT NASAL SUSPENSION 2 s prays each nostril daily until bottle is empty FLUTICASONE PROPIONATE 414776831 99 No Longer Active Jillina Frazell PRESS BOX CUSTODIAN Active ASMANEX 60 METERED DOSES 220 MCG/INH INHALATION AEROSO L POWDER BREATH ACTIVATED 1 puff bid with rinse after MOMETASONE FUROATE 6510974 4102 No Longer Active Jillina Frazell PRESS BOX CUSTODIAN Active ZITHROMAX Z-REYNA 250 MG ORAL TABLET 2 today, then 1 daily for 4 d ays AZITHROMYCIN 76459748338 No Longer Active Elise Arell PRESS BOX CUSTODIAN Active TUSSIONEX PENNKINETIC ER 10-8 MG/5ML ORAL SUSPENSION E XTENDED RELEASE 5ml po q12hr PRN Cough HYDROCOD POLST-CHLORPHEN POLST 5 0273895767 No Longer Active Elise Arell PRESS BOX CUSTODIAN Active PREDNISONE 20 MG ORAL TABLET 2 tabs daily for 3 days, 1 tab daily for 3 days, 1/2 tab daily for 2 days PREDNISONE 08057775080 No Longer Active Jillina Frazell PRESS BOX CUSTODIAN Active AMOXICILLIN 500 MG ORAL CAPSULE 2 po BID x 10 days 201 09/29/08 AMOXICILLIN 38353912918 No Longer Active Jillina Frazell PRESS BOX CUSTODIAN Act nael SINGULAIR 10 MG ORAL TABLET 1 po qday for allergies 20 14/01/12 MONTELUKAST SODIUM 77240184524 No Longer Active Carlton Hu MD Active LEVAQUIN 500 MG ORAL TABLET 1 tablet by mouth daily 13/09/24 LEVOFLOXACIN 94667744654 No Longer Active Carlton Hu MD Acti ve FLUTICASONE PROPIONATE 50 MCG/ACT NASAL SUSPENSION 2 s prays each nostril daily for 2 weeks, then 1 spray each nostril daily. FLUTICASONE PROPIONATE 27924396572 Active Carlton Hu MD Active ZITHROMAX 250 MG ORAL TABLET 2 po today, then 1 po q days 2-5 20 13/08/10 AZITHROMYCIN 39784687572 No Longer Active Elise Garcia APRN Active XANAX 0.5 MG ORAL TABLET one tablet by mouth daily prn anxiety 2015 ALPRAZOLAM 33159077952 Active ALFREDO Holly Active CEFDINIR 300 MG ORAL CAPSULE 1 po BID x 10 days CEFDINIR 10723328387 No Longer Active Carlton Hu MD Active ZOCOR 40 MG ORAL TABLET 1 tab by mouth daily SI MVASTATIN 40414836241 No Longer Active Carlton Hu MD Active CYCLOBENZAPRINE HCL 10 MG ORAL TABLET 1 tablet by mouth BID prn had pain CYCLOBENZAPRINE HCL 45364202735 No Longer Active Jayden Hu MD Active LEVOFLOXACIN 500 MG ORAL TABLET 1 tab PO daily x 10 days LEVOFLOXACIN 93738320055 No Longer Active Carlton Hu MD Acti ve PREDNISONE 20 MG ORAL TABLET 3 tab PO qd x 2d, 2 tab P O qd x 2d, 1 tab PO qd x 2d, 1/2 tab PO qd x 2d PREDNISONE 21033911734 No Lo nger Active Carlton Hu MD Active FLUTICASONE PROPIONATE 50 MCG/ACT NASAL SUSPENSION 1 t o 2 sprays each nostril daily FLUTICASONE PROPIONATE 23963721548 No Longer Ac tive Blaine HERNANDEZ Active CHERATUSSIN AC 100-10 MG/5ML ORAL SYRUP 1 tsp by mouth every 4 hours as needed for cough GUAIFENESIN-CODEINE 51525225672 No Longe r Active Blaine HERNANDEZ Active PROMETHAZINE-CODEINE 6.25-10 MG/5ML ORAL SYRUP 1 tsp b y mouth every 6 hours if needed for cough PROMETHAZINE-CODEINE 76759377338 No Longer Active Blaine HERNANDEZ Active CHERATUSSIN AC 100-10 MG/5ML ORAL SYRUP 1 tsp by mouth every 4 hours as needed for cough GUAIFENESIN-CODEINE 81445856520 No Longe r Active Blaine HERNANDEZ Active ZITHROMAX Z-REYNA 250 MG ORAL TABLET 2 today, then 1 daily for 4 d ays AZITHROMYCIN 85714758255 No Longer Active Columba Raida Act nael ZITHROMAX 250 MG ORAL TABLET 2 po today, then 1 po q days 2-5 20 14/03/21 AZITHROMYCIN 61393887322 No Longer Active Carlton Hu MD Active ZITHROMAX Z-REYNA 250 MG ORAL TABLET 2 today, then 1 daily for 4 d ays AZITHROMYCIN 63419973372 No Longer Active Columba Raida Act nael AUGMENTIN 875-125 MG ORAL TABLET 1 po BID x 10 days 13/01/20 AMOXICILLIN-POT CLAVULANATE 38051814529 No Longer Active Diya De Guzman APRN Active ZITHROMAX 250 MG ORAL TABLET 2 po today, then 1 po q days 2-5 20 12/08/14 AZITHROMYCIN 01441341845 No Longer Active Carlton Hu MD Active TRAMADOL HCL 50 MG ORAL TABLET 1 po tid with ES Tylenol TRAMADOL HCL 54765309090 Active ALFREDO Holly Active PREMARIN 0.625 MG ORAL TABLET TAKE 1 TAB BY MOUTH DAILY ESTROGENS CONJUGATED 10401952356 No Longer Active Ridge Bess DO A ctive CYMBALTA 30 MG ORAL CAPSULE DELAYED RELEASE PARTICLES 1 cap by mouth daily DULOXETINE HCL 90630856321 No Longer Active Ridge Ya ee DO Active AMOXICILLIN 500 MG ORAL CAPSULE 1 tab by mouth 3 times daily x 10 days AMOXICILLIN 29206268579 No Longer Active Carlton bustamante MD Active AMOXICILLIN 500 MG ORAL CAPSULE 1 tab by mouth 3 times daily x 10 days AMOXICILLIN 15722933879 No Longer Active Carlton bustamante MD Active PROMETHAZINE-CODEINE 6.25-10 MG/5ML ORAL SYRUP 1 tsp b y mouth every 8 hours prn cough PROMETHAZINE-CODEINE 06427993565 No Longer Acti ve Carlton Hu MD Active MEDROL 4 MG ORAL TABLET THERAPY PACK 6 pills x 1 day, then 5 pills x 1 day then 4 pills x 1 day, then 3 pills x 1 day, then 2 pills x 1 day, then 1 pill x 1 day, then stop METHYLPREDNISOLONE 36274898900 No Long er Active Perez Mora MD Active AZITHROMYCIN 250 MG ORAL TABLET 2 po qd x 1 day, then 1 po q d x 4 days AZITHROMYCIN 74447445227 No Longer Active Perez Ambriz MD Active SYMBICORT 160-4.5 MCG/ACT INHALATION AEROSOL 2 puffs bid wit h rinse after BUDESONIDE-FORMOTEROL FUMARATE 41371195803 N o Longer Active Perez Mora MD Active LYRICA 75 MG ORAL CAPSULE TAKE 1 CAPSULE BY MOUTH TWICE DAILY PREGABALIN 21617198007 No Longer Active Carlton Hu MD Acti ve TOPAMAX 25 MG ORAL TABLET 1 qHS x 1 week, then 1 BID x 1 week, then 1 qAM and 2 qHS x 1 week, then 2 BID (migraine prevention) T OPIRAMATE 85156093982 No Longer Active Jerica FUENTES Active TOPAMAX 50 MG ORAL TABLET take 1 tab po BID for migraines. 07/02 TOPIRAMATE 26493434214 No Longer Active Jerica Osei Torin Active TRIAMCINOLONE ACETONIDE 0.1 % EXTERNAL CREAM apply three roger es daily prn rash TRIAMCINOLONE ACETONIDE 13146454285 No Longer Active Carlton Hu MD Active PAXIL 40 MG ORAL TABLET take 1 tab po qday for depression 0 PAROXETINE HCL 47404400576 Active Carlton Hu MD Active CHERATUSSIN AC 100-10 MG/5ML ORAL SYRUP 5ml po q6hr PRN Cough 20 13/04/14 GUAIFENESIN-CODEINE 26575863788 No Longer Active Carlton Hu MD Active MEDROL 4 MG ORAL TABLET THERAPY PACK 6 tabs on day 1, 5 tabs on day 2, 4 tabs on day 3, 3 tabs on day 4, 2 tabs on day 5, 1 tab on day 6 2013 METHYLPREDNISOLONE 69788869320 No Longer Active Perez Mora MD Active AZITHROMYCIN 250 MG ORAL TABLET 2 po qd x 1 day, then 1 po q d x 4 days AZITHROMYCIN 27782956015 No Longer Active Perez Ambriz MD Active PROPRANOLOL HCL 60 MG ORAL TABLET 1 PO Q D PROPRANOLOL HCL 04800842698 No Longer Active Perez Mora MD Activ e CHERATUSSIN AC 100-10 MG/5ML ORAL SYRUP take one tsp po Q 6h ours prn cough GUAIFENESIN-CODEINE 70070043321 No Longer Active Zia Mora MD Active AUGMENTIN 875-125 MG ORAL TABLET 1 tab by mouth twice daily with food AMOXICILLIN-POT CLAVULANATE 49077548211 No Longer Act nael Perez Mora MD Active CHERATUSSIN AC 100-10 MG/5ML ORAL SYRUP 1 tsp by mouth every 4 hours as needed for cough GUAIFENESIN-CODEINE 26489522055 No Longe r Active Hugo Restrepo MD Active ACETAMINOPHEN-CODEINE #3 300-30 MG ORAL TABLET 1 PO Q 4-6 HRS FL N PAIN ACETAMINOPHEN-CODEINE 90543041241 No Longer Active Hugo Restrepo MD Active LEVAQUIN 500 MG ORAL TABLET take one po QD LEVO FLOXACIN 32198715042 No Longer Active Griffin HERNANDEZ Active PREDNISONE 20 MG ORAL TABLET Take 3 tabs daily for 3 d ays, 2 tabs daily for 3 days, 1 tab daily for 3 days, 1/2 tab daily for 3 days 11/07 PREDNISONE 22297926999 No Longer Active Carlton Hu MD Acti ve AVELOX 400 MG ORAL TABLET 1 tab by mouth daily MOXIFLOXACIN HCL 90094223755 No Longer Active Carlton Hu MD Active CHERATUSSIN AC 100-10 MG/5ML ORAL SYRUP 1 tsp by mouth every 4 hours as needed for cough GUAIFENESIN-CODEINE 59703053767 No Longe r Active Hugo Restrepo MD Active AVELOX 400 MG ORAL TABLET 1 tab by mouth daily MOXIFLOXACIN HCL 90066608422 No Longer Active Marcy De La Rosa MD PhD Active TERBINAFINE HCL 250 MG ORAL TABLET 1 qDay T ERBINAFINE HCL 35806977570 No Longer Active Marcy De La Rosa MD PhD Active CHERATUSSIN AC 100-10 MG/5ML ORAL SYRUP 1 tsp by mouth every 4 hours as needed for cough GUAIFENESIN-CODEINE 31154382243 No Longe r Active Marcy De La Rosa MD PhD Active AVELOX 400 MG ORAL TABLET 1 tab by mouth daily MOXIFLOXACIN HCL 37476670560 No Longer Active Marcy De La Rosa MD PhD Active HYDROCODONE-ACETAMINOPHEN 5-325 MG ORAL TABLET 1 po q 6hr PRN co ugh HYDROCODONE-ACETAMINOPHEN 49148191218 No Longer Active Marcy De La Rosa MD PhD Active PREDNISONE 20 MG ORAL TABLET 2 tabs daily for 3 days, 1 tab daily for 3 days, 1/2 tab daily for 2 days PREDNISONE 96175824244 No Longer Active Carlton Hu MD Active CEFDINIR 300 MG ORAL CAPSULE by mouth twice a day 2011 CEFDINIR 83344576343 No Longer Active Carlton Hu MD Acti ve HYDROCHLOROTHIAZIDE 25 MG ORAL TABLET 1 TAB PO DAILY HYDROCHLOROTHIAZIDE 54861696028 Active Carlton Hu MD A ctive ACETAMINOPHEN-CODEINE #3 300-30 MG ORAL TABLET 1 tablet po q 4-6 hrs prn pain ACETAMINOPHEN-CODEINE 86705014018 No Longer Active Ridge Bess DO Active ZITHROMAX 250 MG ORAL TABLET 2 po today, then 1 po q days 2-5 20 03/07/07 AZITHROMYCIN 48908059769 No Longer Active Carlton Hu MD Active CHERATUSSIN AC 100-10 MG/5ML ORAL SYRUP take 1 tsp po q4-6 h ours prn cough GUAIFENESIN-CODEINE 93834981643 No Longer Active Jayden Hu MD Active ACETAMINOPHEN-CODEINE #3 300-30 MG ORAL TABLET 1 PO Q 4-6 HR PRN PAIN ACETAMINOPHEN-CODEINE 13976391562 No Longer Active Da raimundo Hu MD Active LORTAB 7.5-500 MG/15ML ORAL ELIXIR 7.5 ml po q 4 hour prn cough HYDROCODONE-ACETAMINOPHEN 55183708414 No Longer Active Carlton Hu MD Active PREDNISONE 20 MG ORAL TABLET 1 po bid 3 days, then 1 po q day 3 days PREDNISONE 54587628316 No Longer Active Carlton Hu MD Active CEFDINIR 300 MG ORAL CAPSULE by mouth twice a day 2011 CEFDINIR 23033287468 No Longer Active Carlton Hu MD Acti ve CEFDINIR 300 MG ORAL CAPSULE by mouth twice a day 2010 CEFDINIR 67240145251 No Longer Active Carlton Hu MD Acti ve CEFDINIR 300 MG ORAL CAPSULE by mouth twice a day 2010 CEFDINIR 15522237901 No Longer Active Carlton Hu MD Acti ve TESSALON PERLES 100 MG ORAL CAPSULE 1 tablet by mouth 3 times daily as needed for cough BENZONATATE 71088545286 No Longer Active Carlton Hu MD Active CEFDINIR 300 MG ORAL CAPSULE by mouth twice a day 2010 CEFDINIR 69595998763 No Longer Active Carlton Hu MD Acti ve ZITHROMAX Z-REYNA 250 MG ORAL TABLET 2 today, then 1 daily for 4 d ays AZITHROMYCIN 80108640082 No Longer Active Hugo Restrepo MD Active TESSALON PERLES 100 MG ORAL CAPSULE 1 tablet by mouth 3 times daily as needed for cough TESSALON PERLES 100 MG ORAL CAPSULE 07767 7 BENZONATATE Inactive PREDNISONE 20 MG ORAL TABLET 1 po bid 3 days, then 1 po q day 3 days PREDNISONE 20 MG ORAL TABLET 964715 PREDNISONE Greer ctive LORTAB 7.5-500 MG/15ML ORAL ELIXIR 7.5 ml po q 4 hour prn cough LORTAB 7.5-500 MG/15ML ORAL ELIXIR HYDROCODONE-A CETAMINOPHEN Inactive ACETAMINOPHEN-CODEINE #3 300-30 MG ORAL TABLET 1 PO Q 4-6 HR PRN PAIN ACETAMINOPHEN-CODEINE #3 300-30 MG ORAL TABLET 9 09612 ACETAMINOPHEN-CODEINE Inactive CHERATUSSIN AC 100-10 MG/5ML ORAL SYRUP take 1 tsp po q4-6 h ours prn cough CHERATUSSIN AC 100-10 MG/5ML ORAL SYRUP 318128 GUAIFENESIN-CODEINE Inactive ACETAMINOPHEN-CODEINE #3 300-30 MG ORAL TABLET 1 tablet po q 4-6 hrs prn pain ACETAMINOPHEN-CODEINE #3 300-30 MG ORAL TABLET 932334 ACETAMINOPHEN-CODEINE Inactive HYDROCODONE-ACETAMINOPHEN 5-325 MG ORAL TABLET 1 po q 6hr PRN co ugh HYDROCODONE-ACETAMINOPHEN 5-325 MG ORAL TABLET 766417 HYDROCODONE-ACETAMINOPHEN Inactive AVELOX 400 MG ORAL TABLET 1 tab by mouth daily AVELOX 400 MG ORAL TABLET MOXIFLOXACIN HCL Inactive CHERATUSSIN AC 100-10 MG/5ML ORAL SYRUP 1 tsp by mouth every 4 hours as needed for cough CHERATUSSIN AC 100-10 MG/5ML ORAL SYRUP 9 71309 GUAIFENESIN-CODEINE Inactive TERBINAFINE HCL 250 MG ORAL TABLET 1 qDay 07/08 TERBINAFINE HCL 250 MG ORAL TABLET 772544 TERBINAFINE HCL Inactive CHERATUSSIN AC 100-10 MG/5ML ORAL SYRUP 1 tsp by mouth every 4 hours as needed for cough CHERATUSSIN AC 100-10 MG/5ML ORAL SYRUP 9 65577 GUAIFENESIN-CODEINE Inactive ACETAMINOPHEN-CODEINE #3 300-30 MG ORAL TABLET 1 PO Q 4-6 HRS FL N PAIN ACETAMINOPHEN-CODEINE #3 300-30 MG ORAL TABLET 711112 ACETAMINOPHEN-CODEINE Inactive CHERATUSSIN AC 100-10 MG/5ML ORAL SYRUP 1 tsp by mouth every 4 hours as needed for cough CHERATUSSIN AC 100-10 MG/5ML ORAL SYRUP 9 74335 GUAIFENESIN-CODEINE Inactive AUGMENTIN 875-125 MG ORAL TABLET 1 tab by mouth twice daily with food AUGMENTIN 875-125 MG ORAL TABLET AMOXICIL MADELINE-POT CLAVULANATE Inactive CHERATUSSIN AC 100-10 MG/5ML ORAL SYRUP take one tsp po Q 6h ours prn cough CHERATUSSIN AC 100-10 MG/5ML ORAL SYRUP 801183 GUAIFENESIN-CODEINE Inactive PROPRANOLOL HCL 60 MG ORAL TABLET 1 PO Q D PROPRANOLOL HCL 60 MG ORAL TABLET 803042 PROPRANOLOL HCL Inactive TOPAMAX 50 MG ORAL TABLET take 1 tab po BID for migraines. 07/02 TOPAMAX 50 MG ORAL TABLET 579576 TOPIRAMATE Inacti ve TOPAMAX 25 MG ORAL TABLET 1 qHS x 1 week, then 1 BID x 1 week, then 1 qAM and 2 qHS x 1 week, then 2 BID (migraine prevention) TOPAMAX 25 MG ORAL TABLET 910511 TOPIRAMATE Inactive LYRICA 75 MG ORAL CAPSULE TAKE 1 CAPSULE BY MOUTH TWICE DAILY LYRICA 75 MG ORAL CAPSULE 152799 PREGABALIN Inactive SYMBICORT 160-4.5 MCG/ACT INHALATION AEROSOL 2 puffs bid wit h rinse after SYMBICORT 160-4.5 MCG/ACT INHALATION AEROSOL BUDESONIDE- FORMOTEROL FUMARATE Inactive PROMETHAZINE-CODEINE 6.25-10 MG/5ML ORAL SYRUP 1 tsp b y mouth every 8 hours prn cough PROMETHAZINE-CODEINE 6.25-10 MG/ 5ML ORAL SYRUP 863974 PROMETHAZINE-CODEINE Inactive CYMBALTA 30 MG ORAL CAPSULE DELAYED RELEASE PARTICLES 1 cap by mouth daily CYMBALTA 30 MG ORAL CAPSULE DELAYED RELE ASE PARTICLES 383854 DULOXETINE HCL Inactive PREMARIN 0.625 MG ORAL TABLET TAKE 1 TAB BY MOUTH DAILY PREMARIN 0.625 MG ORAL TABLET ESTROGENS CONJUGATED Inactive CHERATUSSIN AC 100-10 MG/5ML ORAL SYRUP 1 tsp by mouth every 4 hours as needed for cough CHERATUSSIN AC 100-10 MG/5ML ORAL SYRUP 9 12075 GUAIFENESIN-CODEINE Inactive PROMETHAZINE-CODEINE 6.25-10 MG/5ML ORAL SYRUP 1 tsp b y mouth every 6 hours if needed for cough PROMETHAZINE-CODEINE 6.25-10 MG/5ML ORAL SYRUP 540821 PROMETHAZINE-CODEINE Inactive CHERATUSSIN AC 100-10 MG/5ML ORAL SYRUP 1 tsp by mouth every 4 hours as needed for cough CHERATUSSIN AC 100-10 MG/5ML ORAL SYRUP 9 96198 GUAIFENESIN-CODEINE Inactive FLUTICASONE PROPIONATE 50 MCG/ACT NASAL SUSPENSION 1 t o 2 sprays each nostril daily FLUTICASONE PROPIONATE 50 MCG/AC T NASAL SUSPENSION 1164691 FLUTICASONE PROPIONATE Inactive PREDNISONE 20 MG ORAL TABLET 3 tab PO qd x 2d, 2 tab P O qd x 2d, 1 tab PO qd x 2d, 1/2 tab PO qd x 2d PREDNISONE 20 MG ORAL TAB LET 421076 PREDNISONE Inactive LEVOFLOXACIN 500 MG ORAL TABLET 1 tab PO daily x 10 days LEVOFLOXACIN 500 MG ORAL TABLET 375187 LEVOFLOXACIN Inactive CYCLOBENZAPRINE HCL 10 MG ORAL TABLET 1 tablet by mouth BID prn had pain CYCLOBENZAPRINE HCL 10 MG ORAL TABLET 066942 CYCLOBENZAPRINE HCL Inactive ZOCOR 40 MG ORAL TABLET 1 tab by mouth daily 4 ZOCOR 40 MG ORAL TABLET 027190 SIMVASTATIN Inactive TUSSIONEX PENNKINETIC ER 10-8 MG/5ML [...] FLUTICASONE PROPIO EFE 50 MCG/ACT NASAL SUSPENSION 2945747 FLUTICASONE PROPIONATE Inactive TUSSIONEX PENNKINETIC ER 10-8 MG/5ML ORAL SUSPENSION E XTENDED RELEASE 5 mL PO q 12 hrs PRN cough TUSSIONEX PENNKINETI C ER 10-8 MG/5ML ORAL SUSPENSION EXTENDED RELEASE HYDROCOD POLST-CHLORPHEN POLST I nactive LYRICA 100 MG ORAL CAPSULE Take 1 tab po BID for fibromyalgia 20 11/08/21 LYRICA 100 MG ORAL CAPSULE 763494 PREGABALIN Inact nael TUSSIONEX PENNKINETIC ER 10-8 [...] three days PREDNISONE 20 MG ORAL TABLET 497993 PREDNIS ONE Inactive PROAIR HFA 108 (90 BASE) MCG/ACT INHALATION AEROSOL SO LUTION 2 puffs four times a day as needed PROAIR HFA 108 (90 B ASE) MCG/ACT INHALATION AEROSOL SOLUTION ALBUTEROL SULFATE Inactive PREDNISONE 20 MG ORAL TABLET two tabs by mouth today, then one tab by mouth days two and three and four PREDNISONE 20 MG ORAL TAB LET 252713 PREDNISONE Inactive TUSSIONEX PENNKINETIC ER 10-8 MG/5ML [...] bid 04/20 TOPAMAX 100 MG ORAL TABLET 956703 TOPIRAMATE Inactive CYMBALTA 30 MG ORAL CAPSULE DELAYED RELEASE PARTICLES 1 cap by mouth daily for depression CYMBALTA 30 MG ORAL CAPSULE DELAYED RELEASE PARTICLES 272697 DULOXETINE HCL Inactive TYLENOL WITH CODEINE #3 300-30 MG ORAL TABLET 1-2 po q6hr PRN Pa in TYLENOL WITH CODEINE #3 300-30 MG ORAL TABLET [id number] ACETAMINOPHEN-CODEINE Inactive TYLENOL WITH CODEINE #3 300-30 MG ORAL TABLET TYLENOL WITH CODEINE #3 300-30 MG ORAL TABLET 272764 ACETAMINOPHEN-CODEINE Inactive TRIAMCINOLONE ACETONIDE 0.1 % EXTERNAL CREAM apply bid spari ngly to rash TRIAMCINOLONE ACETONIDE 0.1 % EXTERNAL CREAM 101 5284 TRIAMCINOLONE ACETONIDE Inactive ZITHROMAX Z-REYNA 250 MG ORAL TABLET 2 today, then 1 daily for 4 d ays ZITHROMAX Z-REYNA 250 MG ORAL TABLET 822050 AZITHROMYCIN Inactive CEFDINIR 300 MG ORAL CAPSULE [...] day 2011 CEFDINIR 300 MG ORAL CAPSULE 007919 CEFDINIR Inactive ZITHROMAX 250 MG ORAL TABLET 2 po today, then 1 po q days 2-5 03/07/07 ZITHROMAX 250 MG ORAL TABLET 961852 AZITHROMYCIN [place] ctive CEFDINIR 300 MG ORAL CAPSULE by mouth twice a day 2011 CEFDINIR 300 MG ORAL CAPSULE [id number] CEFDINIR Inactive PREDNISONE 20 MG ORAL TABLET 2 tabs daily for 3 days, 1 tab daily for 3 days, 1/2 tab daily for 2 days PREDNISONE 20 MG ORAL T ABLET 264366 PREDNISONE Inactive AVELOX 400 MG ORAL TABLET [...] days 11/07 PREDNISONE 20 MG ORAL TABLET 557162 PREDNISONE Inactive LEVAQUIN 500 MG ORAL TABLET take one po QD LEVAQUIN 500 MG ORAL TABLET 526272 LEVOFLOXACIN Inactive AZITHROMYCIN 250 MG ORAL TABLET 2 po qd x 1 day, then 1 po q d x 4 days AZITHROMYCIN 250 MG ORAL TABLET 907993 AZITHROMY GIOVANNI Inactive MEDROL 4 MG ORAL TABLET THERAPY PACK 6 tabs on day 1, 5 tabs on day 2, 4 tabs on day 3, 3 tabs on day 4, 2 tabs on day 5, 1 tab on day 6 2013 MEDROL 4 MG ORAL TABLET THERAPY PACK 659482 METHYLPREDNISOLONE [place] [facility] CHERATUSSIN AC 100-10 MG/5ML ORAL SYRUP 5ml po q6hr PRN Cough 20 13/04/14 CHERATUSSIN AC 100-10 MG/5ML ORAL SYRUP 853149 GUAIFENE SIN-CODEINE Inactive TRIAMCINOLONE ACETONIDE 0.1 % EXTERNAL CREAM apply three roger es daily prn rash TRIAMCINOLONE ACETONIDE 0.1 % EXTERNAL CREAM 101 4314 TRIAMCINOLONE ACETONIDE Inactive AZITHROMYCIN 250 MG ORAL TABLET 2 po qd x 1 day, then 1 po q d x 4 days AZITHROMYCIN 250 MG ORAL TABLET 377531 AZITHROMY GIOVANNI Inactive MEDROL 4 MG ORAL TABLET THERAPY PACK 6 pills x 1 day, then 5 pills x 1 day then 4 pills x 1 day, then 3 pills x 1 day, then 2 pills x 1 day, then 1 pill x 1 day, then stop MEDROL 4 MG ORAL TABLET THERAPY PACK 139003 METHYLPREDNISOLONE Inactive AMOXICILLIN 500 MG ORAL CAPSULE 1 tab by mouth 3 times daily x 10 days AMOXICILLIN 500 MG ORAL CAPSULE 070768 AMOXICILL IN Inactive AMOXICILLIN 500 MG ORAL CAPSULE 1 tab by mouth 3 times daily x 10 days AMOXICILLIN 500 MG ORAL CAPSULE 595724 AMOXICILL IN Inactive ZITHROMAX 250 MG ORAL TABLET 2 po today, then 1 po q days 2-5 20 12/08/14 ZITHROMAX 250 MG ORAL TABLET 795228 AZITHROMYCIN [place] [facility] AUGMENTIN 875-125 MG ORAL TABLET 1 po BID x 10 days 13/01/20 AUGMENTIN 875-125 MG ORAL TABLET AMOXICILLIN-POT CLAVULANATE Inactive ZITHROMAX Z-REYNA 250 MG ORAL TABLET 2 today, then 1 daily for 4 d ays ZITHROMAX Z-REYNA 250 MG ORAL TABLET 933514 AZITHROMYCIN Inactive ZITHROMAX 250 MG ORAL TABLET 2 po today, then 1 po q days 2-5 20 14/03/21 ZITHROMAX 250 MG ORAL TABLET 833352 AZITHROMYCIN [place] [facility] ZITHROMAX Z-REYNA 250 MG ORAL TABLET 2 today, then 1 daily for 4 d ays ZITHROMAX Z-REYNA 250 MG ORAL TABLET 507928 AZITHROMYCIN Inactive CEFDINIR 300 MG ORAL CAPSULE 1 po BID x 10 days 06/21 CEFDINIR 300 MG ORAL CAPSULE 20020704 CEFDINIR Inactive ZITHROMAX 250 MG ORAL TABLET 2 po today, then 1 po q days 2-5 20 13/08/10 ZITHROMAX 250 MG ORAL TABLET 935591 AZITHROMYCIN [place] [facility] LEVAQUIN 500 MG ORAL TABLET 1 tablet by mouth daily 13/09/24 LEVAQUIN 500 MG ORAL TABLET 579627 LEVOFLOXACIN Inactive SINGULAIR 10 MG ORAL TABLET 1 po qday for allergies 20 14/01/12 SINGULAIR 10 MG ORAL TABLET 350334 MONTELUKAST SODIUM Inactive AMOXICILLIN 500 MG ORAL CAPSULE 2 po BID x 10 days 201 09/29/08 AMOXICILLIN 500 MG ORAL CAPSULE 558772 AMOXICILLIN Inactive PREDNISONE 20 MG ORAL TABLET 2 tabs daily for 3 days, 1 tab daily for 3 days, 1/2 tab daily for 2 days PREDNISONE 20 MG ORAL T ABLET 549170 PREDNISONE Inactive ZITHROMAX Z-REYNA 250 MG ORAL TABLET 2 today, then 1 daily for 4 d ays ZITHROMAX Z-REYNA 250 MG ORAL TABLET 092615 AZITHROMYCIN Inactive PREDNISONE 20 MG ORAL TABLET 2 tabs daily for 3 days, 1 tab daily for 3 days, 1/2 tab daily for 2 days PREDNISONE 20 MG ORAL T ABLET 623370 PREDNISONE Inactive ZITHROMAX 250 MG ORAL TABLET 2 po today, then 1 po q days 2-5 20 14/09/04 ZITHROMAX 250 MG ORAL TABLET 495483 AZITHROMYCIN [place] [facility] AMOXICILLIN 500 MG ORAL CAPSULE 1 cap by mouth three times a day AMOXICILLIN 500 MG ORAL CAPSULE 006746 AMOXICILLIN Inactive TERBINAFINE HCL 250 MG ORAL TABLET 1 qDay for nail fungus 7 TERBINAFINE HCL 250 MG ORAL TABLET 974302 TERBINAFINE HCL Inact nael AUGMENTIN 875-125 MG ORAL TABLET 1 po BID x 10 days 16/03/22 AUGMENTIN 875-125 MG ORAL TABLET AMOXICILLIN-POT CLAVULANATE Inactive PREDNISONE 20 MG ORAL TABLET 2 po qd x 5 days PREDNISONE 20 MG ORAL TABLET 512457 PREDNISONE Inactive AZITHROMYCIN 250 MG ORAL TABLET 2 po qd x 1 day, then 1 po q d x 4 days AZITHROMYCIN 250 MG ORAL TABLET 631576 AZITHROMY GIOVANNI Inactive PREDNISONE 50 MG ORAL TABLET Take 50 mg dialy for 6 day s 7 PREDNISONE 50 MG ORAL TABLET 494480 PREDNISONE Inactive AUGMENTIN 875-125 MG ORAL TABLET 1 po BID x 10 days 18/04/16 AUGMENTIN 875-125 MG ORAL TABLET AMOXICILLIN-POT CLAVULANATE Inactive DOXYCYCLINE HYCLATE 100 MG ORAL CAPSULE 1 cap by mouth twice latasha ly DOXYCYCLINE HYCLATE 100 MG ORAL CAPSULE 2558768 DOXYCYCL INE HYCLATE Inactive PREDNISONE 20 MG ORAL TABLET Take 2 tabs day 1 and 2 and 1 t ab days 3 and 4 PREDNISONE 20 MG ORAL TABLET 822881 PREDNISONE Inactive AMOXICILLIN 500 MG ORAL CAPSULE 1 cap by mouth twice daily 10/21 AMOXICILLIN 500 MG ORAL CAPSULE 790971 AMOXICILLIN Inactive TRIAMCINOLONE ACETONIDE 0.1 % EXTERNAL OINTMENT Apply to affected areas TID PRN Rash/Itching for up 2 weeks TRIAMCINOLON E ACETONIDE 0.1 % EXTERNAL OINTMENT 2378567 TRIAMCINOLONE ACETONIDE Inactive ACYCLOVIR 800 MG ORAL TABLET 1 po 5 times daily x 7 days ACYCLOVIR 800 MG ORAL TABLET 237288 ACYCLOVIR Inactive Vital Signs Date Name Value [...] - Chem istry sodium, serum 139 mmol/L 450-408 4148/10/12 potassium, serum 3.8 mmol/L 3.5-5.2 chloride, serum 102 mmol/L 98-107 carbon dioxide, venous blood 29.4 mmol/L 21.0-32 .0 blood glucose 103 mg/dL 65-95 calcium, serum 8.8 mg/dL 8.5-10.1 urea nitrogen, blood 10 mg/dL 7-18 creatinine, serum 0.97 mg/dL 0.60-1.30 Estimated Glomerular Filtration Rate (calc) 62 (?) mL/min/1.73m2 = OR > 60 mL/min Lab Report: Comp. Metabolic Panel, CBC, Lipid Panel - Chemistry sodium, serum 137 mmol/L 440-260 4945/10/08 carbon dioxide, venous blood 29.9 mmol/L 21.0-32 [...] 0.50 mg/dL 0.00-1.00 cholesterol, serum 324 mg/dL 838-635 7074/10/08 triglyceride, serum, fasting 130 mg/dL 30-200 HDL [...] negative Encounters Code Encounter Date Provider Facility CPT-46832 [id number] Vst-Est Level IV 09:06:31 C ESAU Hu MD [facility] CPT-16716 Level 3 Est. Patient 14:16:41 CDT David Tin dle [facility] CPT-76903 Level 3 Est. Patient 13:57:55 CDT David Tin dle [facility]-27608 Level 3 Est. Patient 16:08:07 CDT David Tin dle [facility] CPT-68481 Level 3 Est. Patient 16:53:54 CDT May haas MD [facility]-98033 34359-Pas Vst-Est Level IV 08:41:[address] Carlton Hu MD [facility] CPT-57960 Level 3 Est. Patient 09:46:49 DATA ANALYTICS DEVELOPER David Antonino dle [facility]-24244 [id number] Vst-Est Level III 11:12:16 CDT Yanet Bess DO [facility] CPT-66620 Level 3 Est. Patient 11:34:49 DATA ANALYTICS DEVELOPER Perez Mora MD [facility]-43031 Level 4 Est. Patient 09:51:32 DATA ANALYTICS DEVELOPER Carlton rich MD [facility]-51482 Level 3 Est. Patient 10:26:00 DATA ANALYTICS DEVELOPER Elise stephenson [facility] CPT-55429 Level 3 Est. Patient 13:35:41 DATA ANALYTICS DEVELOPER Carlton rich MD [facility] CPT-71043 Level 3 Est. Patient 10:03:52 DATA ANALYTICS DEVELOPER Carlton rich MD [facility] CPT-22975 Level 3 Est. Patient 12:17:50 CDT Hugo Restrepo MD [facility] CPT-55099 Level 3 Est. Patient 13:42:38 CDT Elise Are ll [facility] CPT-95563 Level 3 Est. Patient 13:23:51 CDT Diya cobian [facility] CPT-46923 Level 3 Est. Patient 14:22:19 DATA ANALYTICS DEVELOPER Diya cobian [facility] CPT-53991 Level 3 Est. Patient 10:11:46 CDT Carlton rich MD [facility] CPT-88877 Level 3 Est. Patient 17:29:43 CDT Elise Are ll [facility] CPT-46239 Level 3 Est. Patient 11:58:06 CDT Elise Are [facility] CPT-20168 Level 4 Est. Patient 14:36:51 CDT Carlton rich MD [facility] CPT-59568 Level 3 Est. Patient 18:16:00 DATA ANALYTICS DEVELOPER Blaine HERNANDEZ [facility] CPT-92241 Level 3 Est. Patient 09:45:49 DATA ANALYTICS DEVELOPER Carlton rich MD [facility] CPT-07469 Level 3 Est. Patient 13:19:20 CDT Carlton rich MD [facility] CPT-77624 Level 3 Est. Patient 13:06:43 CDT Ridge tam DO [facility] CPT-38168 Level 3 Est. Patient 10:03:07 CDT Perez Mora MD [facility] CPT-48116 Level 3 Est. Patient 19:50:35 DATA ANALYTICS DEVELOPER Carlton rich MD [facility] CPT-01012 Level 4 Est. Patient 18:05:01 DATA ANALYTICS DEVELOPER Carlton rich MD [facility]-54181 Level 3 Est. Patient 10:45:55 DATA ANALYTICS DEVELOPER Hugo Restrepo MD [facility]-12876 Level 3 Est. Patient 14:12:49 CDT Griffin HERNANDEZ [facility]-43301 Level 3 Est. Patient 17:37:24 CDT Carlton rich MD [facility]-53367 Level 3 Est. Patient 16:51:54 CDT Carlton rich MD [facility]-65069 Level 3 Est. Patient 12:18:11 CDT Hugo Restrepo MD [facility]-98302 Level 3 Est. Patient 11:30:25 CDT Marcy crisostomo MD PhD [facility] CPT-32365 Level 3 Est. Patient 12:00:47 DATA ANALYTICS DEVELOPER Carlton rich MD [facility]-95014 Level 3 Est. Patient 16:31:06 DATA ANALYTICS DEVELOPER Carlton rich MD [facility]-26695 Level 3 Est. Patient 16:23:24 DATA ANALYTICS DEVELOPER Ridge tam DO [facility] CPT-96244 Level 3 Est. Patient 12:34:12 CDT Carlton rich MD [facility]-38324 Level 2 Est. Patient 15:43:33 CDT Robi armstrong MD [facility]-96450 Level 4 Est. Patient 14:04:44 CDT Carlton rich MD [facility]-59793 Level 3 Est. Patient 05:47:59 CDT Ridge tam DO [facility] CPT-42164 Level 3 Est. Patient 13:12:53 DATA ANALYTICS DEVELOPER Carlton rich MD [facility] CPT-23930 Level 3 Est. Patient 14:26:53 CDT Hugo Restrepo MD [facility] Procedures Code Procedure Name Date Entry Date Standard Desc ription CPT-41523 Venipuncture Draw Fee 15:53:34 CDT CPT-000 Give Appropriate Flu Vaccine 14:14:31 CDT 2 CPT-J1040 Depo Medrol 80 mg (Methyl Prednisolone A cetate) 10:42:44 CDT CPT-J1100 Decadron 8mg (Dexamethasone) 10:42:44 CDT 2 CPT-J0696 Rocephin 1gm Inj Solr 14:32:13 CDT CPT-J1020 Depo Medrol 60 mg (Methyl Prednisolone A cetate) 14:32:13 CDT CPT-J1100 Decadron 6mg (Dexamethasone) 14:32:13 CDT 2 CPT-19556 Hip bilat min 2V w AP pelvis 13:16:20 CDT 2 CPT-82525 Pelvis only 13:07:33 CDT CPT-12276 Spec Collection and Handling Fee 11:25:12 C DT CPT-78309 Fluzone Quadrivalent Intramuscular Suspe nsion 0.5 ML 14:31:55 CDT CPT-25206 Abx/Therapy Injection 13:28:47 DATA ANALYTICS DEVELOPER CPT-J2930 Solu Medrol 125 mg (Methyl Prednisolone Sodium Succinate) 12:00:47 DATA ANALYTICS DEVELOPER CPT-34576 Venipuncture Draw Fee 11:33:31 CDT CPT-87955 EKG Trac and Interp 11:21:09 CDT CPT-36024 Chest 2V Frontal and Lat 11:21:09 CDT 12/15 CPT-12174 Venipuncture Draw Fee 08:02:34 CDT CPT-89236 Chest 2V Frontal and Lat 05:47:59 CDT 06/05
[2019-10-08] MEDS ORDERED: ONDANSETRON 4 MG/2 ML (SDV) Z0FRAN ONE (09:58)
[2019-10-08] MEDS ORDERED: LIDOCAINE PF 2% 5 ML (XYLOCAINE) VIAL ONE (09:58)
[2019-10-08] MEDS ORDERED: ROCURONIUM 10 MG/ML 5 ML SYRINGE IV ONE (09:58)
[2019-10-08] MEDS ORDERED: SEVOFLURANE (ULTANE) 15 ML INHAL SOLN ONE ×3 (09:58→10:10)
[2019-10-08] MEDS ORDERED: proPOfol 200 MG/20 ML (DIPRIVAN) VIAL IV ONE (09:58)
--- OUTSIDE RECORDS SUMMARY | 2019-10-08 09:58 | XMS REPORT | Clinical Summary ---
[...] URI 465.9 Inactive Ridge Bess DO Ac tunica-biloxi upper respiratory infections of unspecified site Body Mass Index 35.0-35.9 Adult Refinement 2017 Ridge Bess DO Body Mass Index 35.0-35.9, adult BMI 34-34.9 Refinement Cherelle Torres RN Body Mass Index 35.0-35.9, adult BMI 35-35.9 Refinement David Marianneamisha RICEN Body Mass Index 35.0-35.9, adult BMI 34-34.9 Refinement May Vivar MD Body Mass Index 35.0-35.9, adult BMI 35-35.9 Refinement David Marianne [employer] Body Mass Index 35.0-35.9, adult BMI 33-33.9 Active David Marianne [employer] Body Mass Index 35.0-35.9, adult Upper respiratory [...] Acute pharyngitis Shingles 053.9 Active David Marianne [employer] Herpes zoster without mention of complication Allergic [...] BRONCHITIS, ACUTE WITH MILD BRONCHOSPASM ICD-466.0 Inactive aMrcy De La Rosa MD PhD DYSPNEA ICD-786.05 [...] mouth night ly, for cholesterol ATORVASTATIN CALCIUM 63558369385 Active Columba ida Active TRIAMCINOLONE ACETONIDE 0.1 % EXTERNAL CREAM apply bid spari ngly to rash TRIAMCINOLONE ACETONIDE 35409553374 No Longer Active Carlton Hu MD Active TYLENOL WITH CODEINE #3 300-30 MG ORAL TABLET ACETAMINOPHEN-CODEINE 73912328473 No Longer Active Carlton Hu MD Active TYLENOL WITH CODEINE #3 300-30 MG ORAL TABLET 1-2 po q6hr PRN Pa in ACETAMINOPHEN-CODEINE 33875719751 No Longer Active David Lopes AP RN Active ACYCLOVIR 800 MG ORAL TABLET 1 po 5 times daily x 7 days ACYCLOVIR 58506490368 No Longer Active David Lopes [employer] Active TOPAMAX 100 MG ORAL TABLET 1 by mouth twice daily TOPIRAMATE 48717438423 Active Columba Raida Active TRIAMCINOLONE ACETONIDE 0.1 % EXTERNAL OINTMENT Apply to affected areas TID PRN Rash/Itching for up 2 weeks TRIAMCINOLONE ACETON KAYLA 20489450405 No Longer Active David Marianne [employer] Active AMOXICILLIN 500 MG ORAL CAPSULE 1 cap by mouth twice daily 10/21 AMOXICILLIN 57074333588 No Longer Active David Marianne [employer] Active ELMIRON 100 MG ORAL CAPSULE 2 capsules in the morning and 1 capsule at night PENTOSAN POLYSULFATE SODIUM 03599174661 Active Cinthia cutler BOOK JOGGER Active CYMBALTA 30 MG ORAL CAPSULE DELAYED RELEASE PARTICLES 1 cap by mouth daily for depression DULOXETINE HCL 50028397215 No Longer Active Carlton Hu MD Active CYMBALTA 60 MG ORAL CAPSULE DELAYED RELEASE PARTICLES 1 cap by mouth daily for mood and pain DULOXETINE HCL 67251720559 Active Carlton Hu MD Active TUSSIONEX PENNKINETIC ER 10-8 MG/5ML ORAL SUSPENSION E XTENDED RELEASE 5ml po q12hr PRN Cough HYDROCOD POLST-CHLORPHEN POLST 91270342927 Active Carlton Hu MD Active PREDNISONE 20 MG ORAL TABLET Take 2 tabs day 1 and 2 and 1 t ab days 3 and 4 PREDNISONE 04671663604 No Longer Active David Marianne [employer] Active DOXYCYCLINE HYCLATE 100 MG ORAL CAPSULE 1 cap by mouth twice latasha ly DOXYCYCLINE HYCLATE 76830936842 No Longer Active David Marianne [employer] Active TOPAMAX 100 MG ORAL TABLET Take 1 tablet po bid TOPIRAMATE 48908377549 No Longer Active David Marianne [employer] Active TUSSIONEX PENNKINETIC ER 10-8 MG/5ML ORAL SUSPENSION E XTENDED RELEASE 5ml po q12hr PRN Cough HYDROCOD POLST-CHLORPHEN POLST 5 4757699168 No Longer Active David Marianne [employer] Active AUGMENTIN 875-125 MG ORAL TABLET 1 po BID x 10 days 18/04/16 AMOXICILLIN-POT CLAVULANATE 70110645160 No Longer Active David Marianne [employer] Active PREDNISONE 50 MG ORAL TABLET Take 50 mg dialy for 6 day s 7 PREDNISONE 91884987727 No Longer Active David Lopes APRN Active TUSSIONEX PENNKINETIC ER 10-8 MG/5ML ORAL SUSPENSION E XTENDED RELEASE 5ml po q12hr PRN Cough HYDROCOD POLST-CHLORPHEN POLST 5 3751665032 No Longer Active Cherelle Torres RN Active PREDNISONE 20 MG ORAL TABLET two tabs by mouth today, then one tab by mouth days two and three and four PREDNISONE 05405125572 No Lo nger Active Cherelle Torres RN Active AZITHROMYCIN 250 MG ORAL TABLET 2 po qd x 1 day, then 1 po q d x 4 days AZITHROMYCIN 00979061630 No Longer Active Ridge Bess DO Active PREDNISONE 20 MG ORAL TABLET 2 po qd x 5 days P REDNISONE 28884862063 No Longer Active Perez Mora MD Active PROAIR HFA 108 (90 BASE) MCG/ACT INHALATION AEROSOL SO LUTION 2 puffs four times a day as needed ALBUTEROL SULFATE 49100691990 No Long er Active Becky FUENTES Active ASPIRIN 81 MG ORAL TABLET 1 po qd ASPIRIN 23009837429 Active Carlton Hu MD Active PREDNISONE 20 MG ORAL TABLET 1 tab twice daily for 3 d ay, then one daily for three days PREDNISONE 29682316336 No Longer Active Carlton Hu MD Active AUGMENTIN 875-125 MG ORAL TABLET 1 po BID x 10 days 20 16/03/22 AMOXICILLIN-POT CLAVULANATE 59196406327 No Longer Active Elise Garcia APRN Active TERBINAFINE HCL 250 MG ORAL TABLET 1 qDay for nail fungus 7 TERBINAFINE HCL 44212201398 No Longer Active Carlton Hu MD A ctive AMOXICILLIN 500 MG ORAL CAPSULE 1 cap by mouth three times a day AMOXICILLIN 51670046476 No Longer Active Carlton Hu MD Active ELMIRON 100 MG ORAL CAPSULE 2 tablets in the am and 1 tablet at hs PENTOSAN POLYSULFATE SODIUM 25220540247 No Longer Active Robert jade Hu MD Active MUCINEX D 60-600 MG ORAL TABLET EXTENDED RELEASE 12 HOUR 1 t ab po q am PSEUDOEPHEDRINE-GUAIFENESIN 27150373441 No Longer Act nael Carlton Hu MD Active MUCINEX DM MAXIMUM STRENGTH 60-1200 MG ORAL TABLET EXT ENDED RELEASE 12 HOUR 1 tab po q am DEXTROMETHORPHAN-GUAIFENESIN 76438101131 No Longer Active Carlton Hu MD Active TUSSIONEX PENNKINETIC ER 10-8 MG/5ML ORAL SUSPENSION E XTENDED RELEASE 5ml po q12hr PRN Cough HYDROCOD POLST-CHLORPHEN POLST 5 5610026547 No Longer Active Carlton Hu MD Active POTASSIUM CHLORIDE ER 20 MEQ ORAL TABLET EXTENDED RELE ASE Take 1 by mouth 4 times daily for 7 days POTASSIUM CHLORIDE 54201640420 No Longer Active Carlton Hu MD Active ZITHROMAX 250 MG ORAL TABLET 2 po today, then 1 po q days 2-5 20 14/09/04 AZITHROMYCIN 37484871044 No Longer Active Elise Garcia APRN Active TUSSIONEX PENNKINETIC ER 10-8 MG/5ML ORAL SUSPENSION E XTENDED RELEASE 5 ml twice a day as needed for cough HYDROCOD POLST-CHLORPH EN POLST 93844006163 No Longer Active Elise Garcia APRN Active MONTELUKAST SODIUM 10 MG ORAL TABLET 1 po daily for Allergy MONTELUKAST SODIUM 84104927013 Active Carlton Hu MD Ac tive TUSSIONEX PENNKINETIC ER 10-8 MG/5ML ORAL SUSPENSION E XTENDED RELEASE 5ml po q12hr PRN Cough HYDROCOD POLST-CHLORPHEN POLST 5 6859940239 No Longer Active Hugo Restrepo MD Active GABAPENTIN 100 MG ORAL CAPSULE 1 po BID for fibromyalgia GABAPENTIN 01886537059 Active ALFREDO Holly Active LYRICA 100 MG ORAL CAPSULE Take 1 tab po BID for fibromyalgia 20 11/08/21 PREGABALIN 63568705117 No Longer Active Elise Garcia APRN A ctive PREDNISONE 20 MG ORAL TABLET 2 tabs daily for 3 days, 1 tab daily for 3 days, 1/2 tab daily for 2 days PREDNISONE 60086381222 No Longer Active Jillina Frakerriel [employer] Active TUSSIONEX PENNKINETIC ER 10-8 MG/5ML ORAL SUSPENSION E XTENDED RELEASE 5 mL PO q 12 hrs PRN cough HYDROCOD POLST-CHLORPHEN POLST 902875 14358 No Longer Active Jillina Frazell [employer] Active FLUTICASONE PROPIONATE 50 MCG/ACT NASAL SUSPENSION 2 s prays each nostril daily until bottle is empty FLUTICASONE PROPIONATE 510204419 99 No Longer Active Jillina Frazell [employer] Active ASMANEX 60 METERED DOSES 220 MCG/INH INHALATION AEROSO L POWDER BREATH ACTIVATED 1 puff bid with rinse after MOMETASONE FUROATE 8833876 4102 No Longer Active Jillina Frazell [employer] Active ZITHROMAX Z-REYNA 250 MG ORAL TABLET 2 today, then 1 daily for 4 d ays AZITHROMYCIN 64570331460 No Longer Active Elise Arell [employer] Active TUSSIONEX PENNKINETIC ER 10-8 MG/5ML ORAL SUSPENSION E XTENDED RELEASE 5ml po q12hr PRN Cough HYDROCOD POLST-CHLORPHEN POLST 5 9680502335 No Longer Active Elise Arell [employer] Active PREDNISONE 20 MG ORAL TABLET 2 tabs daily for 3 days, 1 tab daily for 3 days, 1/2 tab daily for 2 days PREDNISONE 94139965253 No Longer Active Jillina Frazell [employer] Active AMOXICILLIN 500 MG ORAL CAPSULE 2 po BID x 10 days 201 09/29/08 AMOXICILLIN 77349078292 No Longer Active Jillina Frazell [employer] Act nael SINGULAIR 10 MG ORAL TABLET 1 po qday for allergies 20 14/01/12 MONTELUKAST SODIUM 22408969940 No Longer Active Carlton Hu MD Active LEVAQUIN 500 MG ORAL TABLET 1 tablet by mouth daily 13/09/24 LEVOFLOXACIN 47496297975 No Longer Active Carlton Hu MD Acti ve FLUTICASONE PROPIONATE 50 MCG/ACT NASAL SUSPENSION 2 s prays each nostril daily for 2 weeks, then 1 spray each nostril daily. FLUTICASONE PROPIONATE 51239280673 Active Carlton Hu MD Active ZITHROMAX 250 MG ORAL TABLET 2 po today, then 1 po q days 2-5 20 13/08/10 AZITHROMYCIN 61793420852 No Longer Active Elise Garcia APRN Active XANAX 0.5 MG ORAL TABLET one tablet by mouth daily prn anxiety 2015 ALPRAZOLAM 53921455567 Active ALFREDO Holly Active CEFDINIR 300 MG ORAL CAPSULE 1 po BID x 10 days CEFDINIR 04529266145 No Longer Active Carlton Hu MD Active ZOCOR 40 MG ORAL TABLET 1 tab by mouth daily SI MVASTATIN 03583613967 No Longer Active Carlton Hu MD Active CYCLOBENZAPRINE HCL 10 MG ORAL TABLET 1 tablet by mouth BID prn had pain CYCLOBENZAPRINE HCL 38015856639 No Longer Active Jayden Hu MD Active LEVOFLOXACIN 500 MG ORAL TABLET 1 tab PO daily x 10 days LEVOFLOXACIN 67417322403 No Longer Active Carlton Hu MD Acti ve PREDNISONE 20 MG ORAL TABLET 3 tab PO qd x 2d, 2 tab P O qd x 2d, 1 tab PO qd x 2d, 1/2 tab PO qd x 2d PREDNISONE 75214182383 No Lo nger Active Carlton uH MD Active FLUTICASONE PROPIONATE 50 MCG/ACT NASAL SUSPENSION 1 t o 2 sprays each nostril daily FLUTICASONE PROPIONATE 06958682482 No Longer Ac tive Blaine HERNANDEZ Active CHERATUSSIN AC 100-10 MG/5ML ORAL SYRUP 1 tsp by mouth every 4 hours as needed for cough GUAIFENESIN-CODEINE 82694066772 No Longe r Active Blaine HERNANDEZ Active PROMETHAZINE-CODEINE 6.25-10 MG/5ML ORAL SYRUP 1 tsp b y mouth every 6 hours if needed for cough PROMETHAZINE-CODEINE 49966398190 No Longer Active Blaine HERNANDEZ Active CHERATUSSIN AC 100-10 MG/5ML ORAL SYRUP 1 tsp by mouth every 4 hours as needed for cough GUAIFENESIN-CODEINE 28718466510 No Longe r Active Blaine HERNANDEZ Active ZITHROMAX Z-REYNA 250 MG ORAL TABLET 2 today, then 1 daily for 4 d ays AZITHROMYCIN 91696584912 No Longer Active Columba Raida Act nael ZITHROMAX 250 MG ORAL TABLET 2 po today, then 1 po q days 2-5 20 14/03/21 AZITHROMYCIN 48464924553 No Longer Active Carlton Hu MD Active ZITHROMAX Z-REYNA 250 MG ORAL TABLET 2 today, then 1 daily for 4 d ays AZITHROMYCIN 42773178971 No Longer Active Columba Raida Act nael AUGMENTIN 875-125 MG ORAL TABLET 1 po BID x 10 days 13/01/20 AMOXICILLIN-POT CLAVULANATE 17136549192 No Longer Active Diya De Guzman APRN Active ZITHROMAX 250 MG ORAL TABLET 2 po today, then 1 po q days 2-5 20 12/08/14 AZITHROMYCIN 16609870904 No Longer Active Carlton Hu MD Active TRAMADOL HCL 50 MG ORAL TABLET 1 po tid with ES Tylenol TRAMADOL HCL 21347356291 Active ALFREDO Holly Active PREMARIN 0.625 MG ORAL TABLET TAKE 1 TAB BY MOUTH DAILY ESTROGENS CONJUGATED 67596751638 No Longer Active Ridge Bess DO A ctive CYMBALTA 30 MG ORAL CAPSULE DELAYED RELEASE PARTICLES 1 cap by mouth daily DULOXETINE HCL 73018287430 No Longer Active Ridge Ya ee DO Active AMOXICILLIN 500 MG ORAL CAPSULE 1 tab by mouth 3 times daily x 10 days AMOXICILLIN 84312877452 No Longer Active Carlton bustamante MD Active AMOXICILLIN 500 MG ORAL CAPSULE 1 tab by mouth 3 times daily x 10 days AMOXICILLIN 98813639673 No Longer Active Carlton bustamante MD Active PROMETHAZINE-CODEINE 6.25-10 MG/5ML ORAL SYRUP 1 tsp b y mouth every 8 hours prn cough PROMETHAZINE-CODEINE 36360789977 No Longer Acti ve Carlton Hu MD Active MEDROL 4 MG ORAL TABLET THERAPY PACK 6 pills x 1 day, then 5 pills x 1 day then 4 pills x 1 day, then 3 pills x 1 day, then 2 pills x 1 day, then 1 pill x 1 day, then stop METHYLPREDNISOLONE 11499988756 No Long er Active Perez Mora MD Active AZITHROMYCIN 250 MG ORAL TABLET 2 po qd x 1 day, then 1 po q d x 4 days AZITHROMYCIN 91296705628 No Longer Active Perez Ambriz MD Active SYMBICORT 160-4.5 MCG/ACT INHALATION AEROSOL 2 puffs bid wit h rinse after BUDESONIDE-FORMOTEROL FUMARATE 88331296810 N o Longer Active Perez Mora MD Active LYRICA 75 MG ORAL CAPSULE TAKE 1 CAPSULE BY MOUTH TWICE DAILY PREGABALIN 91717581614 No Longer Active Carlton Hu MD Acti ve TOPAMAX 25 MG ORAL TABLET 1 qHS x 1 week, then 1 BID x 1 week, then 1 qAM and 2 qHS x 1 week, then 2 BID (migraine prevention) T OPIRAMATE 04942704894 No Longer Active Jerica FUENTES Active TOPAMAX 50 MG ORAL TABLET take 1 tab po BID for migraines. 07/02 TOPIRAMATE 21007781712 No Longer Active Jerica Osei Torin Active TRIAMCINOLONE ACETONIDE 0.1 % EXTERNAL CREAM apply three roger es daily prn rash TRIAMCINOLONE ACETONIDE 65358651648 No Longer Active Carlton Hu MD Active PAXIL 40 MG ORAL TABLET take 1 tab po qday for depression 0 PAROXETINE HCL 25008948460 Active Carlton Hu MD Active CHERATUSSIN AC 100-10 MG/5ML ORAL SYRUP 5ml po q6hr PRN Cough 20 13/04/14 GUAIFENESIN-CODEINE 91181364499 No Longer Active Carlton Hu MD Active MEDROL 4 MG ORAL TABLET THERAPY PACK 6 tabs on day 1, 5 tabs on day 2, 4 tabs on day 3, 3 tabs on day 4, 2 tabs on day 5, 1 tab on day 6 2013 METHYLPREDNISOLONE 70336142192 No Longer Active Perez Mora MD Active AZITHROMYCIN 250 MG ORAL TABLET 2 po qd x 1 day, then 1 po q d x 4 days AZITHROMYCIN 41258375428 No Longer Active Perez Ambriz MD Active PROPRANOLOL HCL 60 MG ORAL TABLET 1 PO Q D PROPRANOLOL HCL 37490913451 No Longer Active Perez Mora MD Activ e CHERATUSSIN AC 100-10 MG/5ML ORAL SYRUP take one tsp po Q 6h ours prn cough GUAIFENESIN-CODEINE 15283693570 No Longer Active Zia Mora MD Active AUGMENTIN 875-125 MG ORAL TABLET 1 tab by mouth twice daily with food AMOXICILLIN-POT CLAVULANATE 76427330699 No Longer Act nael Perez Mora MD Active CHERATUSSIN AC 100-10 MG/5ML ORAL SYRUP 1 tsp by mouth every 4 hours as needed for cough GUAIFENESIN-CODEINE 88939070782 No Longe r Active Hugo Restrepo MD Active ACETAMINOPHEN-CODEINE #3 300-30 MG ORAL TABLET 1 PO Q 4-6 HRS AR N PAIN ACETAMINOPHEN-CODEINE 90330013212 No Longer Active Hugo Restrepo MD Active LEVAQUIN 500 MG ORAL TABLET take one po QD LEVO FLOXACIN 73031027472 No Longer Active Griffin HERNANDEZ Active PREDNISONE 20 MG ORAL TABLET Take 3 tabs daily for 3 d ays, 2 tabs daily for 3 days, 1 tab daily for 3 days, 1/2 tab daily for 3 days 11/07 PREDNISONE 62055561962 No Longer Active Carlton Hu MD Acti ve AVELOX 400 MG ORAL TABLET 1 tab by mouth daily MOXIFLOXACIN HCL 42809591319 No Longer Active Carlton Hu MD Active CHERATUSSIN AC 100-10 MG/5ML ORAL SYRUP 1 tsp by mouth every 4 hours as needed for cough GUAIFENESIN-CODEINE 89077141030 No Longe r Active Hugo Restrepo MD Active AVELOX 400 MG ORAL TABLET 1 tab by mouth daily MOXIFLOXACIN HCL 26412196569 No Longer Active Marcy De La Rosa MD PhD Active TERBINAFINE HCL 250 MG ORAL TABLET 1 qDay T ERBINAFINE HCL 79188441975 No Longer Active Marcy De La Rosa MD PhD Active CHERATUSSIN AC 100-10 MG/5ML ORAL SYRUP 1 tsp by mouth every 4 hours as needed for cough GUAIFENESIN-CODEINE 79637845670 No Longe r Active Marcy De La Rosa MD PhD Active AVELOX 400 MG ORAL TABLET 1 tab by mouth daily MOXIFLOXACIN HCL 30114307199 No Longer Active Marcy De La Rosa MD PhD Active HYDROCODONE-ACETAMINOPHEN 5-325 MG ORAL TABLET 1 po q 6hr PRN co ugh HYDROCODONE-ACETAMINOPHEN 14218856523 No Longer Active Marcy De La Rosa MD PhD Active PREDNISONE 20 MG ORAL TABLET 2 tabs daily for 3 days, 1 tab daily for 3 days, 1/2 tab daily for 2 days PREDNISONE 69226906982 No Longer Active Carlton Hu MD Active CEFDINIR 300 MG ORAL CAPSULE by mouth twice a day 2011 CEFDINIR 20536295377 No Longer Active Carlton Hu MD Acti ve HYDROCHLOROTHIAZIDE 25 MG ORAL TABLET 1 TAB PO DAILY HYDROCHLOROTHIAZIDE 67668227131 Active Carlton Hu MD A ctive ACETAMINOPHEN-CODEINE #3 300-30 MG ORAL TABLET 1 tablet po q 4-6 hrs prn pain ACETAMINOPHEN-CODEINE 13946950956 No Longer Active Ridge Bess DO Active ZITHROMAX 250 MG ORAL TABLET 2 po today, then 1 po q days 2-5 20 03/07/07 AZITHROMYCIN 50982092299 No Longer Active Carlton Hu MD Active CHERATUSSIN AC 100-10 MG/5ML ORAL SYRUP take 1 tsp po q4-6 h ours prn cough GUAIFENESIN-CODEINE 47652674877 No Longer Active Jayden Hu MD Active ACETAMINOPHEN-CODEINE #3 300-30 MG ORAL TABLET 1 PO Q 4-6 HR PRN PAIN ACETAMINOPHEN-CODEINE 18786076552 No Longer Active Da raimundo Hu MD Active LORTAB 7.5-500 MG/15ML ORAL ELIXIR 7.5 ml po q 4 hour prn cough HYDROCODONE-ACETAMINOPHEN 84403850364 No Longer Active Carlton Hu MD Active PREDNISONE 20 MG ORAL TABLET 1 po bid 3 days, then 1 po q day 3 days PREDNISONE 63759766577 No Longer Active Carlton Hu MD Active CEFDINIR 300 MG ORAL CAPSULE by mouth twice a day 2011 CEFDINIR 90077314275 No Longer Active Carlton Hu MD Acti ve CEFDINIR 300 MG ORAL CAPSULE by mouth twice a day 2010 CEFDINIR 30223759016 No Longer Active Carlton Hu MD Acti ve CEFDINIR 300 MG ORAL CAPSULE by mouth twice a day 2010 CEFDINIR 42706437567 No Longer Active Carlton Hu MD Acti ve TESSALON PERLES 100 MG ORAL CAPSULE 1 tablet by mouth 3 times daily as needed for cough BENZONATATE 59795043631 No Longer Active Carlton Hu MD Active CEFDINIR 300 MG ORAL CAPSULE by mouth twice a day 2010 CEFDINIR 90753903704 No Longer Active Carlton Hu MD Acti ve ZITHROMAX Z-REYNA 250 MG ORAL TABLET 2 today, then 1 daily for 4 d ays AZITHROMYCIN 45762401544 No Longer Active Hugo Restrepo MD Active TESSALON PERLES 100 MG ORAL CAPSULE 1 tablet by mouth 3 times daily as needed for cough TESSALON PERLES 100 MG ORAL CAPSULE 15901 7 BENZONATATE Inactive PREDNISONE 20 MG ORAL TABLET 1 po bid 3 days, then 1 po q day 3 days PREDNISONE 20 MG ORAL TABLET 307606 PREDNISONE Greer ctive LORTAB 7.5-500 MG/15ML ORAL ELIXIR 7.5 ml po q 4 hour prn cough LORTAB 7.5-500 MG/15ML ORAL ELIXIR HYDROCODONE-A CETAMINOPHEN Inactive ACETAMINOPHEN-CODEINE #3 300-30 MG ORAL TABLET 1 PO Q 4-6 HR PRN PAIN ACETAMINOPHEN-CODEINE #3 300-30 MG ORAL TABLET 9 10278 ACETAMINOPHEN-CODEINE Inactive CHERATUSSIN AC 100-10 MG/5ML ORAL SYRUP take 1 tsp po q4-6 h ours prn cough CHERATUSSIN AC 100-10 MG/5ML ORAL SYRUP 207462 GUAIFENESIN-CODEINE Inactive ACETAMINOPHEN-CODEINE #3 300-30 MG ORAL TABLET 1 tablet po q 4-6 hrs prn pain ACETAMINOPHEN-CODEINE #3 300-30 MG ORAL TABLET 013929 ACETAMINOPHEN-CODEINE Inactive HYDROCODONE-ACETAMINOPHEN 5-325 MG ORAL TABLET 1 po q 6hr PRN co ugh HYDROCODONE-ACETAMINOPHEN 5-325 MG ORAL TABLET 330868 HYDROCODONE-ACETAMINOPHEN Inactive AVELOX 400 MG ORAL TABLET 1 tab by mouth daily AVELOX 400 MG ORAL TABLET MOXIFLOXACIN HCL Inactive CHERATUSSIN AC 100-10 MG/5ML ORAL SYRUP 1 tsp by mouth every 4 hours as needed for cough CHERATUSSIN AC 100-10 MG/5ML ORAL SYRUP 9 18550 GUAIFENESIN-CODEINE Inactive TERBINAFINE HCL 250 MG ORAL TABLET 1 qDay 07/08 TERBINAFINE HCL 250 MG ORAL TABLET 757750 TERBINAFINE HCL Inactive CHERATUSSIN AC 100-10 MG/5ML ORAL SYRUP 1 tsp by mouth every 4 hours as needed for cough CHERATUSSIN AC 100-10 MG/5ML ORAL SYRUP 9 36540 GUAIFENESIN-CODEINE Inactive ACETAMINOPHEN-CODEINE #3 300-30 MG ORAL TABLET 1 PO Q 4-6 HRS AR N PAIN ACETAMINOPHEN-CODEINE #3 300-30 MG ORAL TABLET 853736 ACETAMINOPHEN-CODEINE Inactive CHERATUSSIN AC 100-10 MG/5ML ORAL SYRUP 1 tsp by mouth every 4 hours as needed for cough CHERATUSSIN AC 100-10 MG/5ML ORAL SYRUP 9 50925 GUAIFENESIN-CODEINE Inactive AUGMENTIN 875-125 MG ORAL TABLET 1 tab by mouth twice daily with food AUGMENTIN 875-125 MG ORAL TABLET AMOXICIL MADELINE-POT CLAVULANATE Inactive CHERATUSSIN AC 100-10 MG/5ML ORAL SYRUP take one tsp po Q 6h ours prn cough CHERATUSSIN AC 100-10 MG/5ML ORAL SYRUP 869792 GUAIFENESIN-CODEINE Inactive PROPRANOLOL HCL 60 MG ORAL TABLET 1 PO Q D PROPRANOLOL HCL 60 MG ORAL TABLET 626457 PROPRANOLOL HCL Inactive TOPAMAX 50 MG ORAL TABLET take 1 tab po BID for migraines. 07/02 TOPAMAX 50 MG ORAL TABLET 805968 TOPIRAMATE Inacti ve TOPAMAX 25 MG ORAL TABLET 1 qHS x 1 week, then 1 BID x 1 week, then 1 qAM and 2 qHS x 1 week, then 2 BID (migraine prevention) TOPAMAX 25 MG ORAL TABLET 762210 TOPIRAMATE Inactive LYRICA 75 MG ORAL CAPSULE TAKE 1 CAPSULE BY MOUTH TWICE DAILY LYRICA 75 MG ORAL CAPSULE 412856 PREGABALIN Inactive SYMBICORT 160-4.5 MCG/ACT INHALATION AEROSOL 2 puffs bid wit h rinse after SYMBICORT 160-4.5 MCG/ACT INHALATION AEROSOL BUDESONIDE- FORMOTEROL FUMARATE Inactive PROMETHAZINE-CODEINE 6.25-10 MG/5ML ORAL SYRUP 1 tsp b y mouth every 8 hours prn cough PROMETHAZINE-CODEINE 6.25-10 MG/ 5ML ORAL SYRUP 920537 PROMETHAZINE-CODEINE Inactive CYMBALTA 30 MG ORAL CAPSULE DELAYED RELEASE PARTICLES 1 cap by mouth daily CYMBALTA 30 MG ORAL CAPSULE DELAYED RELE ASE PARTICLES 716172 DULOXETINE HCL Inactive PREMARIN 0.625 MG ORAL TABLET TAKE 1 TAB BY MOUTH DAILY PREMARIN 0.625 MG ORAL TABLET ESTROGENS CONJUGATED Inactive CHERATUSSIN AC 100-10 MG/5ML ORAL SYRUP 1 tsp by mouth every 4 hours as needed for cough CHERATUSSIN AC 100-10 MG/5ML ORAL SYRUP 9 34691 GUAIFENESIN-CODEINE Inactive PROMETHAZINE-CODEINE 6.25-10 MG/5ML ORAL SYRUP 1 tsp b y mouth every 6 hours if needed for cough PROMETHAZINE-CODEINE 6.25-10 MG/5ML ORAL SYRUP 375644 PROMETHAZINE-CODEINE Inactive CHERATUSSIN AC 100-10 MG/5ML ORAL SYRUP 1 tsp by mouth every 4 hours as needed for cough CHERATUSSIN AC 100-10 MG/5ML ORAL SYRUP 9 22924 GUAIFENESIN-CODEINE Inactive FLUTICASONE PROPIONATE 50 MCG/ACT NASAL SUSPENSION 1 t o 2 sprays each nostril daily FLUTICASONE PROPIONATE 50 MCG/AC T NASAL SUSPENSION 5363271 FLUTICASONE PROPIONATE Inactive PREDNISONE 20 MG ORAL TABLET 3 tab PO qd x 2d, 2 tab P O qd x 2d, 1 tab PO qd x 2d, 1/2 tab PO qd x 2d PREDNISONE 20 MG ORAL TAB LET 414958 PREDNISONE Inactive LEVOFLOXACIN 500 MG ORAL TABLET 1 tab PO daily x 10 days LEVOFLOXACIN 500 MG ORAL TABLET 157702 LEVOFLOXACIN Inactive CYCLOBENZAPRINE HCL 10 MG ORAL TABLET 1 tablet by mouth BID prn had pain CYCLOBENZAPRINE HCL 10 MG ORAL TABLET 724018 CYCLOBENZAPRINE HCL Inactive ZOCOR 40 MG ORAL TABLET 1 tab by mouth daily 4 ZOCOR 40 MG ORAL TABLET 581115 SIMVASTATIN Inactive TUSSIONEX PENNKINETIC ER 10-8 MG/5ML [...] FLUTICASONE PROPIO EFE 50 MCG/ACT NASAL SUSPENSION 1652783 FLUTICASONE PROPIONATE Inactive TUSSIONEX PENNKINETIC ER 10-8 MG/5ML ORAL SUSPENSION E XTENDED RELEASE 5 mL PO q 12 hrs PRN cough TUSSIONEX PENNKINETI C ER 10-8 MG/5ML ORAL SUSPENSION EXTENDED RELEASE HYDROCOD POLST-CHLORPHEN POLST I nactive LYRICA 100 MG ORAL CAPSULE Take 1 tab po BID for fibromyalgia 20 11/08/21 LYRICA 100 MG ORAL CAPSULE 829401 PREGABALIN Inact nael TUSSIONEX PENNKINETIC ER 10-8 [...] three days PREDNISONE 20 MG ORAL TABLET 562642 PREDNIS ONE Inactive PROAIR HFA 108 (90 BASE) MCG/ACT INHALATION AEROSOL SO LUTION 2 puffs four times a day as needed PROAIR HFA 108 (90 B ASE) MCG/ACT INHALATION AEROSOL SOLUTION ALBUTEROL SULFATE Inactive PREDNISONE 20 MG ORAL TABLET two tabs by mouth today, then one tab by mouth days two and three and four PREDNISONE 20 MG ORAL TAB LET 106799 PREDNISONE Inactive TUSSIONEX PENNKINETIC ER 10-8 MG/5ML [...] bid 04/20 TOPAMAX 100 MG ORAL TABLET 653059 TOPIRAMATE Inactive CYMBALTA 30 MG ORAL CAPSULE DELAYED RELEASE PARTICLES 1 cap by mouth daily for depression CYMBALTA 30 MG ORAL CAPSULE DELAYED RELEASE PARTICLES 660440 DULOXETINE HCL Inactive TYLENOL WITH CODEINE #3 300-30 MG ORAL TABLET 1-2 po q6hr PRN Pa in TYLENOL WITH CODEINE #3 300-30 MG ORAL TABLET 721510 ACETAMINOPHEN-CODEINE Inactive TYLENOL WITH CODEINE #3 300-30 MG ORAL TABLET TYLENOL WITH CODEINE #3 300-30 MG ORAL TABLET 838646 ACETAMINOPHEN-CODEINE Inactive TRIAMCINOLONE ACETONIDE 0.1 % EXTERNAL CREAM apply bid spari ngly to rash TRIAMCINOLONE ACETONIDE 0.1 % EXTERNAL CREAM 101 8034 TRIAMCINOLONE ACETONIDE Inactive ZITHROMAX Z-REYNA 250 MG ORAL TABLET 2 today, then 1 daily for 4 d ays ZITHROMAX Z-REYNA 250 MG ORAL TABLET 669359 AZITHROMYCIN Inactive CEFDINIR 300 MG ORAL CAPSULE [...] day 2011 CEFDINIR 300 MG ORAL CAPSULE 649295 CEFDINIR Inactive ZITHROMAX 250 MG ORAL TABLET 2 po today, then 1 po q days 2-5 03/07/07 ZITHROMAX 250 MG ORAL TABLET 725847 AZITHROMYCIN Boley ctive CEFDINIR 300 MG ORAL CAPSULE by mouth twice a day 2011 CEFDINIR 300 MG ORAL CAPSULE 20020704 CEFDINIR Inactive PREDNISONE 20 MG ORAL TABLET 2 tabs daily for 3 days, 1 tab daily for 3 days, 1/2 tab daily for 2 days PREDNISONE 20 MG ORAL T ABLET 814356 PREDNISONE Inactive AVELOX 400 MG ORAL TABLET [...] days 11/07 PREDNISONE 20 MG ORAL TABLET 609870 PREDNISONE Inactive LEVAQUIN 500 MG ORAL TABLET take one po QD LEVAQUIN 500 MG ORAL TABLET 239046 LEVOFLOXACIN Inactive AZITHROMYCIN 250 MG ORAL TABLET 2 po qd x 1 day, then 1 po q d x 4 days AZITHROMYCIN 250 MG ORAL TABLET 670548 AZITHROMY GIOVANNI Inactive MEDROL 4 MG ORAL TABLET THERAPY PACK 6 tabs on day 1, 5 tabs on day 2, 4 tabs on day 3, 3 tabs on day 4, 2 tabs on day 5, 1 tab on day 6 2013 MEDROL 4 MG ORAL TABLET THERAPY PACK 423403 METHYLPREDNISOLONE Boley ctive CHERATUSSIN AC 100-10 MG/5ML ORAL SYRUP 5ml po q6hr PRN Cough 20 13/04/14 CHERATUSSIN AC 100-10 MG/5ML ORAL SYRUP 684072 GUAIFENE SIN-CODEINE Inactive TRIAMCINOLONE ACETONIDE 0.1 % EXTERNAL CREAM apply three roger es daily prn rash TRIAMCINOLONE ACETONIDE 0.1 % EXTERNAL CREAM 101 4314 TRIAMCINOLONE ACETONIDE Inactive AZITHROMYCIN 250 MG ORAL TABLET 2 po qd x 1 day, then 1 po q d x 4 days AZITHROMYCIN 250 MG ORAL TABLET 736477 AZITHROMY GIOVANNI Inactive MEDROL 4 MG ORAL TABLET THERAPY PACK 6 pills x 1 day, then 5 pills x 1 day then 4 pills x 1 day, then 3 pills x 1 day, then 2 pills x 1 day, then 1 pill x 1 day, then stop MEDROL 4 MG ORAL TABLET THERAPY PACK 979947 METHYLPREDNISOLONE Inactive AMOXICILLIN 500 MG ORAL CAPSULE 1 tab by mouth 3 times daily x 10 days AMOXICILLIN 500 MG ORAL CAPSULE 290678 AMOXICILL IN Inactive AMOXICILLIN 500 MG ORAL CAPSULE 1 tab by mouth 3 times daily x 10 days AMOXICILLIN 500 MG ORAL CAPSULE 074045 AMOXICILL IN Inactive ZITHROMAX 250 MG ORAL TABLET 2 po today, then 1 po q days 2-5 20 12/08/14 ZITHROMAX 250 MG ORAL TABLET 970881 AZITHROMYCIN Greer ctive AUGMENTIN 875-125 MG ORAL TABLET 1 po BID x 10 days 13/01/20 AUGMENTIN 875-125 MG ORAL TABLET AMOXICILLIN-POT CLAVULANATE Inactive ZITHROMAX Z-REYNA 250 MG ORAL TABLET 2 today, then 1 daily for 4 d ays ZITHROMAX Z-REYNA 250 MG ORAL TABLET 593655 AZITHROMYCIN Inactive ZITHROMAX 250 MG ORAL TABLET 2 po today, then 1 po q days 2-5 20 14/03/21 ZITHROMAX 250 MG ORAL TABLET 275029 AZITHROMYCIN Greer ctive ZITHROMAX Z-REYNA 250 MG ORAL TABLET 2 today, then 1 daily for 4 d ays ZITHROMAX Z-REYNA 250 MG ORAL TABLET 764172 AZITHROMYCIN Inactive CEFDINIR 300 MG ORAL CAPSULE 1 po BID x 10 days 06/21 CEFDINIR 300 MG ORAL CAPSULE 20020704 CEFDINIR Inactive ZITHROMAX 250 MG ORAL TABLET 2 po today, then 1 po q days 2-5 20 13/08/10 ZITHROMAX 250 MG ORAL TABLET 624255 AZITHROMYCIN Boley ctive LEVAQUIN 500 MG ORAL TABLET 1 tablet by mouth daily 13/09/24 LEVAQUIN 500 MG ORAL TABLET 804493 LEVOFLOXACIN Inactive SINGULAIR 10 MG ORAL TABLET 1 po qday for allergies 20 14/01/12 SINGULAIR 10 MG ORAL TABLET 930592 MONTELUKAST SODIUM Inactive AMOXICILLIN 500 MG ORAL CAPSULE 2 po BID x 10 days 201 09/29/08 AMOXICILLIN 500 MG ORAL CAPSULE 764770 AMOXICILLIN Inactive PREDNISONE 20 MG ORAL TABLET 2 tabs daily for 3 days, 1 tab daily for 3 days, 1/2 tab daily for 2 days PREDNISONE 20 MG ORAL T ABLET 829377 PREDNISONE Inactive ZITHROMAX Z-REYNA 250 MG ORAL TABLET 2 today, then 1 daily for 4 d ays ZITHROMAX Z-REYNA 250 MG ORAL TABLET 362261 AZITHROMYCIN Inactive PREDNISONE 20 MG ORAL TABLET 2 tabs daily for 3 days, 1 tab daily for 3 days, 1/2 tab daily for 2 days PREDNISONE 20 MG ORAL T ABLET 101048 PREDNISONE Inactive ZITHROMAX 250 MG ORAL TABLET 2 po today, then 1 po q days 2-5 20 14/09/04 ZITHROMAX 250 MG ORAL TABLET 962036 AZITHROMYCIN Greer ctive AMOXICILLIN 500 MG ORAL CAPSULE 1 cap by mouth three times a day AMOXICILLIN 500 MG ORAL CAPSULE 073355 AMOXICILLIN Inactive TERBINAFINE HCL 250 MG ORAL TABLET 1 qDay for nail fungus 7 TERBINAFINE HCL 250 MG ORAL TABLET 112765 TERBINAFINE HCL Inact nael AUGMENTIN 875-125 MG ORAL TABLET 1 po BID x 10 days 16/03/22 AUGMENTIN 875-125 MG ORAL TABLET AMOXICILLIN-POT CLAVULANATE Inactive PREDNISONE 20 MG ORAL TABLET 2 po qd x 5 days PREDNISONE 20 MG ORAL TABLET 298713 PREDNISONE Inactive AZITHROMYCIN 250 MG ORAL TABLET 2 po qd x 1 day, then 1 po q d x 4 days AZITHROMYCIN 250 MG ORAL TABLET 690930 AZITHROMY GIOVANNI Inactive PREDNISONE 50 MG ORAL TABLET Take 50 mg dialy for 6 day s 7 PREDNISONE 50 MG ORAL TABLET 602396 PREDNISONE Inactive AUGMENTIN 875-125 MG ORAL TABLET 1 po BID x 10 days 18/04/16 AUGMENTIN 875-125 MG ORAL TABLET AMOXICILLIN-POT CLAVULANATE Inactive DOXYCYCLINE HYCLATE 100 MG ORAL CAPSULE 1 cap by mouth twice latasha ly DOXYCYCLINE HYCLATE 100 MG ORAL CAPSULE 6294727 DOXYCYCL INE HYCLATE Inactive PREDNISONE 20 MG ORAL TABLET Take 2 tabs day 1 and 2 and 1 t ab days 3 and 4 PREDNISONE 20 MG ORAL TABLET 036608 PREDNISONE Inactive AMOXICILLIN 500 MG ORAL CAPSULE 1 cap by mouth twice daily 10/21 AMOXICILLIN 500 MG ORAL CAPSULE 451702 AMOXICILLIN Inactive TRIAMCINOLONE ACETONIDE 0.1 % EXTERNAL OINTMENT Apply to affected areas TID PRN Rash/Itching for up 2 weeks TRIAMCINOLON E ACETONIDE 0.1 % EXTERNAL OINTMENT 7706615 TRIAMCINOLONE ACETONIDE Inactive ACYCLOVIR 800 MG ORAL TABLET 1 po 5 times daily x 7 days ACYCLOVIR 800 MG ORAL TABLET 243337 ACYCLOVIR Inactive Vital Signs Date Name Value [...] - Chem istry sodium, serum 139 mmol/L 793-957 3238/10/12 potassium, serum 3.8 mmol/L 3.5-5.2 chloride, serum [...] Panel - Chemistry sodium, serum 137 mmol/L 209-353 5102/10/08 carbon dioxide, venous blood 29.9 mmol/L 21.0-32 [...] 0.50 mg/dL 0.00-1.00 cholesterol, serum 324 mg/dL 142-734 7707/10/08 triglyceride, serum, fasting 130 mg/dL 30-200 HDL [...] negative Encounters Code Encounter Date Provider Facility CPT-[id number] Vst-Est Level IV 09:06:31 C ESAU Hu MD [facility] CPT-50441 Level 3 Est. Patient 14:16:41 CDT David Tin dle [facility] CPT-70141 Level 3 Est. Patient 13:57:55 CDT David Tin dle [facility]-68032 Level 3 Est. Patient 16:08:07 CDT David Tin dle [facility] CPT-90690 Level 3 Est. Patient 16:53:54 CDT May haas MD [id number] [id number] Vst-Est Level IV 08:41:[address] Carlton Hu MD [facility] CPT-88056 Level 3 Est. Patient 09:46:49 ASSOCIATE PARTNER David Antonino dle [facility]-13521 [id number] Vst-Est Level III 11:12:16 CDT Yanet Bess DO [facility] CPT-31438 Level 3 Est. Patient 11:34:49 ASSOCIATE PARTNER Perez Mora MD [facility]-53742 Level 4 Est. Patient 09:51:32 ASSOCIATE PARTNER Carlton rich MD [facility]-66945 Level 3 Est. Patient 10:26:00 ASSOCIATE PARTNER Elise stephenson [facility] CPT-80066 Level 3 Est. Patient 13:35:41 ASSOCIATE PARTNER Carlton rich MD [facility] CPT-58838 Level 3 Est. Patient 10:03:52 ASSOCIATE PARTNER Carlton rich MD [facility] CPT-47324 Level 3 Est. Patient 12:17:50 CDT Hugo Restrepo MD [facility] CPT-57995 Level 3 Est. Patient 13:42:38 CDT Elise Are ll [facility] CPT-92708 Level 3 Est. Patient 13:23:51 CDT Diya cobian [facility] CPT-98336 Level 3 Est. Patient 14:22:19 ASSOCIATE PARTNER Diya cobian [facility] CPT-35982 Level 3 Est. Patient 10:11:46 CDT Carlton rich MD [facility] CPT-02208 Level 3 Est. Patient 17:29:43 CDT Elise Are ll [facility] CPT-08493 Level 3 Est. Patient 11:58:06 CDT Elise Are [facility] CPT-76963 Level 4 Est. Patient 14:36:51 CDT Carlton rich MD [facility] CPT-13059 Level 3 Est. Patient 18:16:00 ASSOCIATE PARTNER Blaine HERNANDEZ [facility] CPT-17999 Level 3 Est. Patient 09:45:49 ASSOCIATE PARTNER Carlton rich MD [facility] CPT-68170 Level 3 Est. Patient 13:19:20 CDT Carlton rich MD [facility] CPT-12369 Level 3 Est. Patient 13:06:43 CDT Ridge tam DO [facility] CPT-09476 Level 3 Est. Patient 10:03:07 CDT Perez Mora MD [facility] CPT-66247 Level 3 Est. Patient 19:50:35 ASSOCIATE PARTNER Carlton rich MD [facility] CPT-48867 Level 4 Est. Patient 18:05:01 ASSOCIATE PARTNER Carlton rich MD [facility]-64483 Level 3 Est. Patient 10:45:55 ASSOCIATE PARTNER Hugo Restrepo MD [facility]-42573 Level 3 Est. Patient 14:12:49 CDT Griffin HERNANDEZ [facility]-32015 Level 3 Est. Patient 17:37:24 CDT Carlton rich MD [facility]-28662 Level 3 Est. Patient 16:51:54 CDT Carlton rich MD [facility]-24112 Level 3 Est. Patient 12:18:11 CDT Hugo Restrepo MD [facility]-47046 Level 3 Est. Patient 11:30:25 CDT Marcy crisostomo MD PhD [facility] CPT-75833 Level 3 Est. Patient 12:00:47 ASSOCIATE PARTNER Carlton rich MD [facility]-10534 Level 3 Est. Patient 16:31:06 ASSOCIATE PARTNER Carlton rich MD [facility]-06551 Level 3 Est. Patient 16:23:24 ASSOCIATE PARTNER Ridge tam DO [facility] CPT-02773 Level 3 Est. Patient 12:34:12 CDT Carlton rich MD [facility]-48709 Level 2 Est. Patient 15:43:33 CDT Robi armstrong MD [facility]-93618 Level 4 Est. Patient 14:04:44 CDT Carlton rich MD [facility]-96530 Level 3 Est. Patient 05:47:59 CDT Ridge tam DO [facility] CPT-57559 Level 3 Est. Patient 13:12:53 ASSOCIATE PARTNER Carlton rich MD [facility] CPT-02905 Level 3 Est. Patient 14:26:53 CDT Hugo Restrepo MD [facility] Procedures Code Procedure Name Date Entry Date Standard Desc ription CPT-98633 Venipuncture Draw Fee 15:53:34 CDT CPT-000 Give Appropriate Flu Vaccine 14:14:31 CDT 2 CPT-J1040 Depo Medrol 80 mg (Methyl Prednisolone A cetate) 10:42:44 CDT CPT-J1100 Decadron 8mg (Dexamethasone) 10:42:44 CDT 2 CPT-J0696 Rocephin 1gm Inj Solr 14:32:13 CDT CPT-J1020 Depo Medrol 60 mg (Methyl Prednisolone A cetate) 14:32:13 CDT CPT-J1100 Decadron 6mg (Dexamethasone) 14:32:13 CDT 2 CPT-67054 Hip bilat min 2V w AP pelvis 13:16:20 CDT 2 CPT-19140 Pelvis only 13:07:33 CDT CPT-34148 Spec Collection and Handling Fee 11:25:12 C DT CPT-90764 Fluzone Quadrivalent Intramuscular Suspe nsion 0.5 ML 14:31:55 CDT CPT-02740 Abx/Therapy Injection 13:28:47 ASSOCIATE PARTNER CPT-J2930 Solu Medrol 125 mg (Methyl Prednisolone Sodium Succinate) 12:00:47 ASSOCIATE PARTNER CPT-82263 Venipuncture Draw Fee 11:33:31 CDT CPT-01417 EKG Trac and Interp 11:21:09 CDT CPT-25256 Chest 2V Frontal and Lat 11:21:09 CDT 12/15 CPT-87589 Venipuncture Draw Fee 08:02:34 CDT CPT-44100 Chest 2V Frontal and Lat 05:47:59 CDT 06/05
--- OUTSIDE RECORDS SUMMARY | 2019-10-08 09:58 | XMS REPORT | Clinical Summary ---
Author Author Caitlin, Juliana Martinez Organization [facility] [place] Address Unknown Phone Unavailable Allergies, Adverse Reactions, [...] MD Acute pharyngitis Onychomycosis 112.3 Active Carlton uH MD Candidiasis of skin and nails Sinusitis - acute 461.9 Active Elise Garcia APRN Acute sinusitis, unspecified Angina pectoris 413.9 Active Carlton Means Other and unspecified angina pectoris URI 465.9 Inactive Ridge Bess DO Ac [place] upper respiratory infections of unspecified site Body Mass Index 35.0-35.9 Adult Refinement 2017 Ridge Bess DO Body Mass Index 35.0-35.9, adult BMI 34-34.9 Refinement Cherelle Torres RN Body Mass Index 35.0-35.9, adult BMI 35-35.9 Refinement David Marianneamisha RICEN Body Mass Index 35.0-35.9, adult BMI 34-34.9 Refinement May Vivar MD Body Mass Index 35.0-35.9, adult BMI 35-35.9 Refinement David Marianne CORPORATE INTERN Body Mass Index 35.0-35.9, adult BMI 33-33.9 Active David Marianne CORPORATE INTERN Body Mass Index 35.0-35.9, adult Upper respiratory [...] nonspecific skin eruption 782.1 Active David Marianne CORPORATE INTERN Rash and other nonspecific skin eruption Pharyngitis, acute / sore throat 462 Active 201 12/06/23 David Marianne CORPORATE INTERN Acute pharyngitis Shingles 053.9 Active David Marianne CORPORATE INTERN Herpes zoster without mention of complication Allergic [...] Patient Instruction TRIAMCINOLONE ACETONIDE 0.1 % EXTERNAL CREAM apply bid spari ngly to rash TRIAMCINOLONE ACETONIDE 84840290321 No Longer Active Carlton Hu MD Active TYLENOL WITH CODEINE #3 300-30 MG ORAL TABLET ACETAMINOPHEN-CODEINE 50166144440 No Longer Active Carlton Hu MD Active TYLENOL WITH CODEINE #3 300-30 MG ORAL TABLET 1-2 po q6hr PRN Pa in ACETAMINOPHEN-CODEINE 84599203465 No Longer Active David Lopes AP RN Active ACYCLOVIR 800 MG ORAL TABLET 1 po 5 times daily x 7 days ACYCLOVIR 79739746029 No Longer Active Davidjerel Lopes CORPORATE INTERN Active TOPAMAX 100 MG ORAL TABLET 1 by mouth twice daily TOPIRAMATE 95355976867 Active Columba Parrish Active TRIAMCINOLONE ACETONIDE 0.1 % EXTERNAL OINTMENT Apply to affected areas TID PRN Rash/Itching for up 2 weeks TRIAMCINOLONE ACETON KAYLA 62353061025 No Longer Active David Lopes CORPORATE INTERN Active AMOXICILLIN 500 MG ORAL CAPSULE 1 cap by mouth twice daily 10/21 AMOXICILLIN 49302921850 No Longer Active David Marainne CORPORATE INTERN Active ELMIRON 100 MG ORAL CAPSULE 2 capsules in the morning and 1 capsule at night PENTOSAN POLYSULFATE SODIUM 45611833338 Active 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 CYMBALTA 30 MG ORAL CAPSULE DELAYED RELEASE PARTICLES 1 cap by mouth daily for depression DULOXETINE HCL 79903409689 No Longer Active Carlton Hu MD Active CYMBALTA 60 MG ORAL CAPSULE DELAYED RELEASE PARTICLES 1 cap by mouth daily for mood and pain DULOXETINE HCL 18606293030 Active Carlton Hu MD Active TUSSIONEX PENNKINETIC ER 10-8 MG/5ML ORAL SUSPENSION E XTENDED RELEASE 5ml po q12hr PRN Cough HYDROCOD POLST-CHLORPHEN POLST 34038802017 Active Carlton Hu MD Active PREDNISONE 20 MG ORAL TABLET Take 2 tabs day 1 and 2 and 1 t ab days 3 and 4 PREDNISONE 42230433856 No Longer Active David Marianne CORPORATE INTERN Active DOXYCYCLINE HYCLATE 100 MG ORAL CAPSULE 1 cap by mouth twice latasha ly DOXYCYCLINE HYCLATE 27868161171 No Longer Active David Marianne CORPORATE INTERN Active TOPAMAX 100 MG ORAL TABLET Take 1 tablet po bid TOPIRAMATE 50409499396 No Longer Active David Marianne CORPORATE INTERN Active TUSSIONEX PENNKINETIC ER 10-8 MG/5ML ORAL SUSPENSION E XTENDED RELEASE 5ml po q12hr PRN Cough HYDROCOD POLST-CHLORPHEN POLST 5 7094241561 No Longer Active David Marianne CORPORATE INTERN Active AUGMENTIN 875-125 MG ORAL TABLET 1 po BID x 10 days 18/04/16 AMOXICILLIN-POT CLAVULANATE 71273244566 No Longer Active David Marianne CORPORATE INTERN Active PREDNISONE 50 MG ORAL TABLET Take 50 mg dialy for 6 day s 7 PREDNISONE 28364120806 No Longer Active David Marianne CORPORATE INTERN Active TUSSIONEX PENNKINETIC ER 10-8 MG/5ML ORAL SUSPENSION E XTENDED RELEASE 5ml po q12hr PRN Cough HYDROCOD POLST-CHLORPHEN POLST 5 6665867819 No Longer Active Cherelle Torres RN Active PREDNISONE 20 MG ORAL TABLET two tabs by mouth today, then one tab by mouth days two and three and four PREDNISONE 87999211319 No Lo nger Active Cherelle Torres RN Active AZITHROMYCIN 250 MG ORAL TABLET 2 po qd x 1 day, then 1 po q d x 4 days AZITHROMYCIN 83491767381 No Longer Active Ridge Bess DO Active PREDNISONE 20 MG ORAL TABLET 2 po qd x 5 days P REDNISONE 84223533592 No Longer Active Perez Mora MD Active PROAIR HFA 108 (90 BASE) MCG/ACT INHALATION AEROSOL SO LUTION 2 puffs four times a day as needed ALBUTEROL SULFATE 44295834278 No Long er Active Becky AGUILARA Active ASPIRIN 81 MG ORAL TABLET 1 po qd ASPIRIN 68651448177 Active Carlton Hu MD Active PREDNISONE 20 MG ORAL TABLET 1 tab twice daily for 3 d ay, then one daily for three days PREDNISONE 45101883746 No Longer Active Carlton Hu MD Active AUGMENTIN 875-125 MG ORAL TABLET 1 po BID x 10 days 20 16/03/22 AMOXICILLIN-POT CLAVULANATE 10721044051 No Longer Active Elise Garcia APRN Active TERBINAFINE HCL 250 MG ORAL TABLET 1 qDay for nail fungus 7 TERBINAFINE HCL 51883657321 No Longer Active Carlton Hu MD A ctive AMOXICILLIN 500 MG ORAL CAPSULE 1 cap by mouth three times a day AMOXICILLIN 60880901799 No Longer Active Carlton Hu MD Active ELMIRON 100 MG ORAL CAPSULE 2 tablets in the am and 1 tablet at hs PENTOSAN POLYSULFATE SODIUM 71574235385 No Longer Active Robert jade Hu MD Active MUCINEX D 60-600 MG ORAL TABLET EXTENDED RELEASE 12 HOUR 1 t ab po q am PSEUDOEPHEDRINE-GUAIFENESIN 57034399566 No Longer Act nael Carlton Hu MD Active MUCINEX DM MAXIMUM STRENGTH 60-1200 MG ORAL TABLET EXT ENDED RELEASE 12 HOUR 1 tab po q am DEXTROMETHORPHAN-GUAIFENESIN 97541521054 No Longer Active Carlton Hu MD Active TUSSIONEX PENNKINETIC ER 10-8 MG/5ML ORAL SUSPENSION E XTENDED RELEASE 5ml po q12hr PRN Cough HYDROCOD POLST-CHLORPHEN POLST 5 8938002534 No Longer Active Carlton Hu MD Active POTASSIUM CHLORIDE ER 20 MEQ ORAL TABLET EXTENDED RELE ASE Take 1 by mouth 4 times daily for 7 days POTASSIUM CHLORIDE 66312213842 No Longer Active Carlton Hu MD Active ZITHROMAX 250 MG ORAL TABLET 2 po today, then 1 po q days 2-5 20 14/09/04 AZITHROMYCIN 91003548147 No Longer Active Elise Garcia APRN Active TUSSIONEX PENNKINETIC ER 10-8 MG/5ML ORAL SUSPENSION E XTENDED RELEASE 5 ml twice a day as needed for cough HYDROCOD POLST-CHLORPH EN POLST 50390002481 No Longer Active Elise Garcia APRN Active MONTELUKAST SODIUM 10 MG ORAL TABLET 1 po daily for Allergy MONTELUKAST SODIUM 91675376621 Active Carlton Hu MD Ac tive TUSSIONEX PENNKINETIC ER 10-8 MG/5ML ORAL SUSPENSION E XTENDED RELEASE 5ml po q12hr PRN Cough HYDROCOD POLST-CHLORPHEN POLST 5 6785390598 No Longer Active Hugo Restrepo MD Active GABAPENTIN 100 MG ORAL CAPSULE 1 po BID for fibromyalgia GABAPENTIN 52706557271 Active ALFREDO Holly Active LYRICA 100 MG ORAL CAPSULE Take 1 tab po BID for fibromyalgia 20 11/08/21 PREGABALIN 63249475786 No Longer Active Elise Arell CORPORATE INTERN A ctive PREDNISONE 20 MG ORAL TABLET 2 tabs daily for 3 days, 1 tab daily for 3 days, 1/2 tab daily for 2 days PREDNISONE 76154502881 No Longer Active Jillina Frazell CORPORATE INTERN Active TUSSIONEX PENNKINETIC ER 10-8 MG/5ML ORAL SUSPENSION E XTENDED RELEASE 5 mL PO q 12 hrs PRN cough HYDROCOD POLST-CHLORPHEN POLST 258367 70170 No Longer Active Jillina Frazell CORPORATE INTERN Active FLUTICASONE PROPIONATE 50 MCG/ACT NASAL SUSPENSION 2 s prays each nostril daily until bottle is empty FLUTICASONE PROPIONATE 508070409 99 No Longer Active Jillina Frazell CORPORATE INTERN Active ASMANEX 60 METERED DOSES 220 MCG/INH INHALATION AEROSO L POWDER BREATH ACTIVATED 1 puff bid with rinse after MOMETASONE FUROATE 7439959 4102 No Longer Active Jillina Frazell CORPORATE INTERN Active ZITHROMAX Z-REYNA 250 MG ORAL TABLET 2 today, then 1 daily for 4 d ays AZITHROMYCIN 93247060107 No Longer Active Elise Arell CORPORATE INTERN Active TUSSIONEX PENNKINETIC ER 10-8 MG/5ML ORAL SUSPENSION E XTENDED RELEASE 5ml po q12hr PRN Cough HYDROCOD POLST-CHLORPHEN POLST 5 7728107478 No Longer Active Elise Arell CORPORATE INTERN Active PREDNISONE 20 MG ORAL TABLET 2 tabs daily for 3 days, 1 tab daily for 3 days, 1/2 tab daily for 2 days PREDNISONE 94844068297 No Longer Active Jillina Frazell CORPORATE INTERN Active AMOXICILLIN 500 MG ORAL CAPSULE 2 po BID x 10 days 201 09/29/08 AMOXICILLIN 86425185497 No Longer Active Jillina Frazell CORPORATE INTERN Act nael SINGULAIR 10 MG ORAL TABLET 1 po qday for allergies 20 14/01/12 MONTELUKAST SODIUM 16631649569 No Longer Active Carlton Hu MD Active LEVAQUIN 500 MG ORAL TABLET 1 tablet by mouth daily 13/09/24 LEVOFLOXACIN 64099103983 No Longer Active Carlton Hu MD Acti ve FLUTICASONE PROPIONATE 50 MCG/ACT NASAL SUSPENSION 2 s prays each nostril daily for 2 weeks, then 1 spray each nostril daily. FLUTICASONE PROPIONATE 02146300779 Active Carlton Hu MD Active ZITHROMAX 250 MG ORAL TABLET 2 po today, then 1 po q days 2-5 20 13/08/10 AZITHROMYCIN 21372044247 No Longer Active Elise Garcia APRN Active XANAX 0.5 MG ORAL TABLET one tablet by mouth daily prn anxiety 2015 ALPRAZOLAM 12761277945 Active ALFREDO Holly Active CEFDINIR 300 MG ORAL CAPSULE 1 po BID x 10 days CEFDINIR 99144392031 No Longer Active Carlton Hu MD Active ZOCOR 40 MG ORAL TABLET 1 tab by mouth daily SI MVASTATIN 20275207212 No Longer Active Carlton Hu MD Active CYCLOBENZAPRINE HCL 10 MG ORAL TABLET 1 tablet by mouth BID prn had pain CYCLOBENZAPRINE HCL 60427133267 No Longer Active Jayden Hu MD Active LEVOFLOXACIN 500 MG ORAL TABLET 1 tab PO daily x 10 days LEVOFLOXACIN 84855409682 No Longer Active Carlton Hu MD Acti ve PREDNISONE 20 MG ORAL TABLET 3 tab PO qd x 2d, 2 tab P O qd x 2d, 1 tab PO qd x 2d, 1/2 tab PO qd x 2d PREDNISONE 23724593421 No Lo nger Active Carlton Hu MD Active FLUTICASONE PROPIONATE 50 MCG/ACT NASAL SUSPENSION 1 t o 2 sprays each nostril daily FLUTICASONE PROPIONATE 44241900673 No Longer Ac tiisabel HERNANDEZ Active CHERATUSSIN AC 100-10 MG/5ML ORAL SYRUP 1 tsp by mouth every 4 hours as needed for cough GUAIFENESIN-CODEINE 51364400698 No Longe r Active Blaine HERNANDEZ Active PROMETHAZINE-CODEINE 6.25-10 MG/5ML ORAL SYRUP 1 tsp b y mouth every 6 hours if needed for cough PROMETHAZINE-CODEINE 22010700331 No Longer Active Blaine HERNANDEZ Active CHERATUSSIN AC 100-10 MG/5ML ORAL SYRUP 1 tsp by mouth every 4 hours as needed for cough GUAIFENESIN-CODEINE 63569299292 No Longe r Active Blaine HERNANDEZ Active ZITHROMAX Z-REYNA 250 MG ORAL TABLET 2 today, then 1 daily for 4 d ays AZITHROMYCIN 96134434559 No Longer Active Columba Raida Act nael ZITHROMAX 250 MG ORAL TABLET 2 po today, then 1 po q days 2-5 20 14/03/21 AZITHROMYCIN 22687300726 No Longer Active Carlton Hu MD Active ZITHROMAX Z-REYNA 250 MG ORAL TABLET 2 today, then 1 daily for 4 d ays AZITHROMYCIN 48090089055 No Longer Active Columba Raida Act nael AUGMENTIN 875-125 MG ORAL TABLET 1 po BID x 10 days 13/01/20 AMOXICILLIN-POT CLAVULANATE 12913808872 No Longer Active Diya De Guzman APRN Active ZITHROMAX 250 MG ORAL TABLET 2 po today, then 1 po q days 2-5 20 12/08/14 AZITHROMYCIN 41944899182 No Longer Active Carlton Hu MD Active TRAMADOL HCL 50 MG ORAL TABLET 1 po tid with ES Tylenol TRAMADOL HCL 31387921103 Active ALFREDO Holly Active PREMARIN 0.625 MG ORAL TABLET TAKE 1 TAB BY MOUTH DAILY ESTROGENS CONJUGATED 83762827499 No Longer Active Ridge ROSAS ctive CYMBALTA 30 MG ORAL CAPSULE DELAYED RELEASE PARTICLES 1 cap by mouth daily DULOXETINE HCL 30863246960 No Longer Active Ridge tam DO Active AMOXICILLIN 500 MG ORAL CAPSULE 1 tab by mouth 3 times daily x 10 days AMOXICILLIN 25361539890 No Longer Active Carlton bustamante MD Active AMOXICILLIN 500 MG ORAL CAPSULE 1 tab by mouth 3 times daily x 10 days AMOXICILLIN 93771951317 No Longer Active Carlton bustamante MD Active PROMETHAZINE-CODEINE 6.25-10 MG/5ML ORAL SYRUP 1 tsp b y mouth every 8 hours prn cough PROMETHAZINE-CODEINE 37867566923 No Longer Acti ve Carlton Hu MD Active MEDROL 4 MG ORAL TABLET THERAPY PACK 6 pills x 1 day, then 5 pills x 1 day then 4 pills x 1 day, then 3 pills x 1 day, then 2 pills x 1 day, then 1 pill x 1 day, then stop METHYLPREDNISOLONE 23019613785 No Long er Active Perez Mora MD Active AZITHROMYCIN 250 MG ORAL TABLET 2 po qd x 1 day, then 1 po q d x 4 days AZITHROMYCIN 36563960798 No Longer Active Perez Ambriz MD Active SYMBICORT 160-4.5 MCG/ACT INHALATION AEROSOL 2 puffs bid wit h rinse after BUDESONIDE-FORMOTEROL FUMARATE 99374644585 N o Longer Active Perez Mora MD Active LYRICA 75 MG ORAL CAPSULE TAKE 1 CAPSULE BY MOUTH TWICE DAILY PREGABALIN 09887063581 No Longer Active Carlton Hu MD Acti ve TOPAMAX 25 MG ORAL TABLET 1 qHS x 1 week, then 1 BID x 1 week, then 1 qAM and 2 qHS x 1 week, then 2 BID (migraine prevention) T OPIRAMATE 77021392261 No Longer Active Jerica FUENTES Active TOPAMAX 50 MG ORAL TABLET take 1 tab po BID for migraines. 07/02 TOPIRAMATE 60935003577 No Longer Active Jerica FUENTES Active TRIAMCINOLONE ACETONIDE 0.1 % EXTERNAL CREAM apply three roger es daily prn rash TRIAMCINOLONE ACETONIDE 84294634097 No Longer Active Carlton Hu MD Active PAXIL 40 MG ORAL TABLET take 1 tab po qday for depression 0 PAROXETINE HCL 79461245790 Active Carlton Hu MD Active CHERATUSSIN AC 100-10 MG/5ML ORAL SYRUP 5ml po q6hr PRN Cough 20 13/04/14 GUAIFENESIN-CODEINE 29261985845 No Longer Active Carlton Hu MD Active MEDROL 4 MG ORAL TABLET THERAPY PACK 6 tabs on day 1, 5 tabs on day 2, 4 tabs on day 3, 3 tabs on day 4, 2 tabs on day 5, 1 tab on day 6 2013 METHYLPREDNISOLONE 70759890867 No Longer Active Perez Mora MD Active AZITHROMYCIN 250 MG ORAL TABLET 2 po qd x 1 day, then 1 po q d x 4 days AZITHROMYCIN 33527925245 No Longer Active Perez Ambriz MD Active PROPRANOLOL HCL 60 MG ORAL TABLET 1 PO Q D PROPRANOLOL HCL 82289569662 No Longer Active Perez Mora MD Activ e CHERATUSSIN AC 100-10 MG/5ML ORAL SYRUP take one tsp po Q 6h ours prn cough GUAIFENESIN-CODEINE 13958494783 No Longer Active Zia Mora MD Active AUGMENTIN 875-125 MG ORAL TABLET 1 tab by mouth twice daily with food AMOXICILLIN-POT CLAVULANATE 32491627275 No Longer Act nael Perez Mora MD Active CHERATUSSIN AC 100-10 MG/5ML ORAL SYRUP 1 tsp by mouth every 4 hours as needed for cough GUAIFENESIN-CODEINE 17019358511 No Longe r Active Hugo Restrepo MD Active ACETAMINOPHEN-CODEINE #3 300-30 MG ORAL TABLET 1 PO Q 4-6 HRS MO N PAIN ACETAMINOPHEN-CODEINE 34900852130 No Longer Active Hugo Restrepo MD Active LEVAQUIN 500 MG ORAL TABLET take one po QD LEVO FLOXACIN 22135116316 No Longer Active Griffin HERNANDEZ Active PREDNISONE 20 MG ORAL TABLET Take 3 tabs daily for 3 d ays, 2 tabs daily for 3 days, 1 tab daily for 3 days, 1/2 tab daily for 3 days 11/07 PREDNISONE 15607355236 No Longer Active Carlton Hu MD Acti ve AVELOX 400 MG ORAL TABLET 1 tab by mouth daily MOXIFLOXACIN HCL 22896612225 No Longer Active Carlton Hu MD Active CHERATUSSIN AC 100-10 MG/5ML ORAL SYRUP 1 tsp by mouth every 4 hours as needed for cough GUAIFENESIN-CODEINE 95965281292 No Longe r Active Hugo Restrepo MD Active AVELOX 400 MG ORAL TABLET 1 tab by mouth daily MOXIFLOXACIN HCL 23083038459 No Longer Active Marcy De La Rosa MD PhD Active TERBINAFINE HCL 250 MG ORAL TABLET 1 qDay T ERBINAFINE HCL 19443796108 No Longer Active Marcy De La Rosa MD PhD Active CHERATUSSIN AC 100-10 MG/5ML ORAL SYRUP 1 tsp by mouth every 4 hours as needed for cough GUAIFENESIN-CODEINE 64489077922 No Longe r Active Marcy De La Rosa MD PhD Active AVELOX 400 MG ORAL TABLET 1 tab by mouth daily MOXIFLOXACIN HCL 17870716546 No Longer Active Marcy De La Rosa MD PhD Active HYDROCODONE-ACETAMINOPHEN 5-325 MG ORAL TABLET 1 po q 6hr PRN co ugh HYDROCODONE-ACETAMINOPHEN 54321133396 No Longer Active Marcy De La Rosa MD PhD Active PREDNISONE 20 MG ORAL TABLET 2 tabs daily for 3 days, 1 tab daily for 3 days, 1/2 tab daily for 2 days PREDNISONE 60337126480 No Longer Active Carlton Hu MD Active CEFDINIR 300 MG ORAL CAPSULE by mouth twice a day 2011 CEFDINIR 88628620096 No Longer Active Carlton Hu MD Acti ve HYDROCHLOROTHIAZIDE 25 MG ORAL TABLET 1 TAB PO DAILY HYDROCHLOROTHIAZIDE 36398414044 Active Carlton Hu MD A ctive ACETAMINOPHEN-CODEINE #3 300-30 MG ORAL TABLET 1 tablet po q 4-6 hrs prn pain ACETAMINOPHEN-CODEINE 72845823512 No Longer Active Ridge Bess DO Active ZITHROMAX 250 MG ORAL TABLET 2 po today, then 1 po q days 2-5 20 03/07/07 AZITHROMYCIN 65384054655 No Longer Active Carlton Hu MD Active CHERATUSSIN AC 100-10 MG/5ML ORAL SYRUP take 1 tsp po q4-6 h ours prn cough GUAIFENESIN-CODEINE 68158406671 No Longer Active Jayden Hu MD Active ACETAMINOPHEN-CODEINE #3 300-30 MG ORAL TABLET 1 PO Q 4-6 HR PRN PAIN ACETAMINOPHEN-CODEINE 60958627626 No Longer Active Da raimundo Hu MD Active LORTAB 7.5-500 MG/15ML ORAL ELIXIR 7.5 ml po q 4 hour prn cough HYDROCODONE-ACETAMINOPHEN 77530835279 No Longer Active Carlton Hu MD Active PREDNISONE 20 MG ORAL TABLET 1 po bid 3 days, then 1 po q day 3 days PREDNISONE 82917114799 No Longer Active Carlton Hu MD Active CEFDINIR 300 MG ORAL CAPSULE by mouth twice a day 2011 CEFDINIR 18947110674 No Longer Active Carlton Hu MD Acti ve CEFDINIR 300 MG ORAL CAPSULE by mouth twice a day 2010 CEFDINIR 17337263325 No Longer Active Carlton Hu MD Acti ve CEFDINIR 300 MG ORAL CAPSULE by mouth twice a day 2010 CEFDINIR 35766723033 No Longer Active Carlton Hu MD Acti ve TESSALON PERLES 100 MG ORAL CAPSULE 1 tablet by mouth 3 times daily as needed for cough BENZONATATE 27818088943 No Longer Active Carlton Hu MD Active CEFDINIR 300 MG ORAL CAPSULE by mouth twice a day 2010 CEFDINIR 72677816319 No Longer Active Carlton Hu MD Acti ve ZITHROMAX Z-REYNA 250 MG ORAL TABLET 2 today, then 1 daily for 4 d ays AZITHROMYCIN 23312214497 No Longer Active Hugo Restrepo MD Active TESSALON PERLES 100 MG ORAL CAPSULE 1 tablet by mouth 3 times daily as needed for cough TESSALON PERLES 100 MG ORAL CAPSULE 93628 7 BENZONATATE Inactive PREDNISONE 20 MG ORAL TABLET 1 po bid 3 days, then 1 po q day 3 days PREDNISONE 20 MG ORAL TABLET 849408 PREDNISONE [place] ctive LORTAB 7.5-500 MG/15ML ORAL ELIXIR 7.5 ml po q 4 hour prn cough LORTAB 7.5-500 MG/15ML ORAL ELIXIR HYDROCODONE-A CETAMINOPHEN Inactive ACETAMINOPHEN-CODEINE #3 300-30 MG ORAL TABLET 1 PO Q 4-6 HR PRN PAIN ACETAMINOPHEN-CODEINE #3 300-30 MG ORAL TABLET 9 09213 ACETAMINOPHEN-CODEINE Inactive CHERATUSSIN AC 100-10 MG/5ML ORAL SYRUP take 1 tsp po q4-6 h ours prn cough CHERATUSSIN AC 100-10 MG/5ML ORAL SYRUP 487602 GUAIFENESIN-CODEINE Inactive ACETAMINOPHEN-CODEINE #3 300-30 MG ORAL TABLET 1 tablet po q 4-6 hrs prn pain ACETAMINOPHEN-CODEINE #3 300-30 MG ORAL TABLET 286996 ACETAMINOPHEN-CODEINE Inactive HYDROCODONE-ACETAMINOPHEN 5-325 MG ORAL TABLET 1 po q 6hr PRN co ugh HYDROCODONE-ACETAMINOPHEN 5-325 MG ORAL TABLET 341022 HYDROCODONE-ACETAMINOPHEN Inactive AVELOX 400 MG ORAL TABLET 1 tab by mouth daily AVELOX 400 MG ORAL TABLET MOXIFLOXACIN HCL Inactive CHERATUSSIN AC 100-10 MG/5ML ORAL SYRUP 1 tsp by mouth every 4 hours as needed for cough CHERATUSSIN AC 100-10 MG/5ML ORAL SYRUP 9 93097 GUAIFENESIN-CODEINE Inactive TERBINAFINE HCL 250 MG ORAL TABLET 1 qDay 07/08 TERBINAFINE HCL 250 MG ORAL TABLET 342973 TERBINAFINE HCL Inactive CHERATUSSIN AC 100-10 MG/5ML ORAL SYRUP 1 tsp by mouth every 4 hours as needed for cough CHERATUSSIN AC 100-10 MG/5ML ORAL SYRUP 9 80964 GUAIFENESIN-CODEINE Inactive ACETAMINOPHEN-CODEINE #3 300-30 MG ORAL TABLET 1 PO Q 4-6 HRS MO N PAIN ACETAMINOPHEN-CODEINE #3 300-30 MG ORAL TABLET 189015 ACETAMINOPHEN-CODEINE Inactive CHERATUSSIN AC 100-10 MG/5ML ORAL SYRUP 1 tsp by mouth every 4 hours as needed for cough CHERATUSSIN AC 100-10 MG/5ML ORAL SYRUP 9 12578 GUAIFENESIN-CODEINE Inactive AUGMENTIN 875-125 MG ORAL TABLET 1 tab by mouth twice daily with food AUGMENTIN 875-125 MG ORAL TABLET AMOXICIL MADELINE-POT CLAVULANATE Inactive CHERATUSSIN AC 100-10 MG/5ML ORAL SYRUP take one tsp po Q 6h ours prn cough CHERATUSSIN AC 100-10 MG/5ML ORAL SYRUP 400847 GUAIFENESIN-CODEINE Inactive PROPRANOLOL HCL 60 MG ORAL TABLET 1 PO Q D PROPRANOLOL HCL 60 MG ORAL TABLET 337950 PROPRANOLOL HCL Inactive TOPAMAX 50 MG ORAL TABLET take 1 tab po BID for migraines. 07/02 TOPAMAX 50 MG ORAL TABLET 599387 TOPIRAMATE Inacti ve TOPAMAX 25 MG ORAL TABLET 1 qHS x 1 week, then 1 BID x 1 week, then 1 qAM and 2 qHS x 1 week, then 2 BID (migraine prevention) TOPAMAX 25 MG ORAL TABLET 901226 TOPIRAMATE Inactive LYRICA 75 MG ORAL CAPSULE TAKE 1 CAPSULE BY MOUTH TWICE DAILY LYRICA 75 MG ORAL CAPSULE 320368 PREGABALIN Inactive SYMBICORT 160-4.5 MCG/ACT INHALATION AEROSOL 2 puffs bid wit h rinse after SYMBICORT 160-4.5 MCG/ACT INHALATION AEROSOL BUDESONIDE- FORMOTEROL FUMARATE Inactive PROMETHAZINE-CODEINE 6.25-10 MG/5ML ORAL SYRUP 1 tsp b y mouth every 8 hours prn cough PROMETHAZINE-CODEINE 6.25-10 MG/ 5ML ORAL SYRUP 830708 PROMETHAZINE-CODEINE Inactive CYMBALTA 30 MG ORAL CAPSULE DELAYED RELEASE PARTICLES 1 cap by mouth daily CYMBALTA 30 MG ORAL CAPSULE DELAYED RELE ASE PARTICLES 624596 DULOXETINE HCL Inactive PREMARIN 0.625 MG ORAL TABLET TAKE 1 TAB BY MOUTH DAILY PREMARIN 0.625 MG ORAL TABLET ESTROGENS CONJUGATED Inactive CHERATUSSIN AC 100-10 MG/5ML ORAL SYRUP 1 tsp by mouth every 4 hours as needed for cough CHERATUSSIN AC 100-10 MG/5ML ORAL SYRUP 9 63376 GUAIFENESIN-CODEINE Inactive PROMETHAZINE-CODEINE 6.25-10 MG/5ML ORAL SYRUP 1 tsp b y mouth every 6 hours if needed for cough PROMETHAZINE-CODEINE 6.25-10 MG/5ML ORAL SYRUP 517861 PROMETHAZINE-CODEINE Inactive CHERATUSSIN AC 100-10 MG/5ML ORAL SYRUP 1 tsp by mouth every 4 hours as needed for cough CHERATUSSIN AC 100-10 MG/5ML ORAL SYRUP 9 61045 GUAIFENESIN-CODEINE Inactive FLUTICASONE PROPIONATE 50 MCG/ACT NASAL SUSPENSION 1 t o 2 sprays each nostril daily FLUTICASONE PROPIONATE 50 MCG/AC T NASAL SUSPENSION 5370769 FLUTICASONE PROPIONATE Inactive PREDNISONE 20 MG ORAL TABLET 3 tab PO qd x 2d, 2 tab P O qd x 2d, 1 tab PO qd x 2d, 1/2 tab PO qd x 2d PREDNISONE 20 MG ORAL TAB LET 374713 PREDNISONE Inactive LEVOFLOXACIN 500 MG ORAL TABLET 1 tab PO daily x 10 days LEVOFLOXACIN 500 MG ORAL TABLET 295815 LEVOFLOXACIN Inactive CYCLOBENZAPRINE HCL 10 MG ORAL TABLET 1 tablet by mouth BID prn had pain CYCLOBENZAPRINE HCL 10 MG ORAL TABLET 137918 CYCLOBENZAPRINE HCL Inactive ZOCOR 40 MG ORAL TABLET 1 tab by mouth daily 4 ZOCOR 40 MG ORAL TABLET 852146 SIMVASTATIN Inactive TUSSIONEX PENNKINETIC ER 10-8 MG/5ML [...] FLUTICASONE PROPIO EFE 50 MCG/ACT NASAL SUSPENSION 0770650 FLUTICASONE PROPIONATE Inactive TUSSIONEX PENNKINETIC ER 10-8 MG/5ML ORAL SUSPENSION E XTENDED RELEASE 5 mL PO q 12 hrs PRN cough TUSSIONEX PENNKINETI C ER 10-8 MG/5ML ORAL SUSPENSION EXTENDED RELEASE HYDROCOD POLST-CHLORPHEN POLST I nactive LYRICA 100 MG ORAL CAPSULE Take 1 tab po BID for fibromyalgia 20 11/08/21 LYRICA 100 MG ORAL CAPSULE 082859 PREGABALIN Inact nael TUSSIONEX PENNKINETIC ER 10-8 [...] three days PREDNISONE 20 MG ORAL TABLET 245225 PREDNIS ONE Inactive PROAIR HFA 108 (90 BASE) MCG/ACT INHALATION AEROSOL SO LUTION 2 puffs four times a day as needed PROAIR HFA 108 (90 B ASE) MCG/ACT INHALATION AEROSOL SOLUTION ALBUTEROL SULFATE Inactive PREDNISONE 20 MG ORAL TABLET two tabs by mouth today, then one tab by mouth days two and three and four PREDNISONE 20 MG ORAL TAB LET 607740 PREDNISONE Inactive TUSSIONEX PENNKINETIC ER 10-8 MG/5ML [...] bid 04/20 TOPAMAX 100 MG ORAL TABLET [id number] TOPIRAMATE Inactive CYMBALTA 30 MG ORAL CAPSULE DELAYED RELEASE PARTICLES 1 cap by mouth daily for depression CYMBALTA 30 MG ORAL CAPSULE DELAYED RELEASE PARTICLES [id number] DULOXETINE HCL Inactive TYLENOL WITH CODEINE #3 300-30 MG ORAL TABLET 1-2 po q6hr PRN Pa in TYLENOL WITH CODEINE #3 300-30 MG ORAL TABLET [id number] ACETAMINOPHEN-CODEINE Inactive TYLENOL WITH CODEINE #3 300-30 MG ORAL TABLET TYLENOL WITH CODEINE #3 300-30 MG ORAL TABLET [id number] ACETAMINOPHEN-CODEINE Inactive TRIAMCINOLONE ACETONIDE 0.1 % EXTERNAL CREAM apply bid spari ngly to rash TRIAMCINOLONE ACETONIDE 0.1 % EXTERNAL CREAM 101 4314 TRIAMCINOLONE ACETONIDE Inactive ZITHROMAX Z-REYNA 250 MG ORAL TABLET 2 today, then 1 daily for 4 d ays ZITHROMAX Z-REYNA 250 MG ORAL TABLET 443290 AZITHROMYCIN Inactive CEFDINIR 300 MG ORAL CAPSULE [...] 2-5 03/07/07 ZITHROMAX 250 MG ORAL TABLET 491709 AZITHROMYCIN [facility] CEFDINIR 300 MG ORAL CAPSULE by mouth twice a day 2011 CEFDINIR 300 MG ORAL CAPSULE 20020704 CEFDINIR Inactive PREDNISONE 20 MG ORAL TABLET 2 tabs daily for 3 days, 1 tab daily for 3 days, 1/2 tab daily for 2 days PREDNISONE 20 MG ORAL T ABLET 937307 PREDNISONE Inactive AVELOX 400 MG ORAL TABLET [...] days 11/07 PREDNISONE 20 MG ORAL TABLET 762119 PREDNISONE Inactive LEVAQUIN 500 MG ORAL TABLET take one po QD LEVAQUIN 500 MG ORAL TABLET 967599 LEVOFLOXACIN Inactive AZITHROMYCIN 250 MG ORAL TABLET 2 po qd x 1 day, then 1 po q d x 4 days AZITHROMYCIN 250 MG ORAL TABLET 683185 AZITHROMY GIOVANNI Inactive MEDROL 4 MG ORAL TABLET THERAPY PACK 6 tabs on day 1, 5 tabs on day 2, 4 tabs on day 3, 3 tabs on day 4, 2 tabs on day 5, 1 tab on day 6 2013 MEDROL 4 MG ORAL TABLET THERAPY PACK 936507 METHYLPREDNISOLONE [facility] CHERATUSSIN AC 100-10 MG/5ML ORAL SYRUP 5ml po q6hr PRN Cough 20 13/04/14 CHERATUSSIN AC 100-10 MG/5ML ORAL SYRUP 002208 GUAIFENE SIN-CODEINE Inactive TRIAMCINOLONE ACETONIDE 0.1 % EXTERNAL CREAM apply three roger es daily prn rash TRIAMCINOLONE ACETONIDE 0.1 % EXTERNAL CREAM 101 4314 TRIAMCINOLONE ACETONIDE Inactive AZITHROMYCIN 250 MG ORAL TABLET 2 po qd x 1 day, then 1 po q d x 4 days AZITHROMYCIN 250 MG ORAL TABLET 268002 AZITHROMY GIOVANNI Inactive MEDROL 4 MG ORAL TABLET THERAPY PACK 6 pills x 1 day, then 5 pills x 1 day then 4 pills x 1 day, then 3 pills x 1 day, then 2 pills x 1 day, then 1 pill x 1 day, then stop MEDROL 4 MG ORAL TABLET THERAPY PACK 538616 METHYLPREDNISOLONE Inactive AMOXICILLIN 500 MG ORAL CAPSULE 1 tab by mouth 3 times daily x 10 days AMOXICILLIN 500 MG ORAL CAPSULE 659740 AMOXICILL IN Inactive AMOXICILLIN 500 MG ORAL CAPSULE 1 tab by mouth 3 times daily x 10 days AMOXICILLIN 500 MG ORAL CAPSULE 718262 AMOXICILL IN Inactive ZITHROMAX 250 MG ORAL TABLET 2 po today, then 1 po q days 2-5 20 12/08/14 ZITHROMAX 250 MG ORAL TABLET 864974 AZITHROMYCIN [facility] AUGMENTIN 875-125 MG ORAL TABLET 1 po BID x 10 days 20 13/01/20 AUGMENTIN 875-125 MG ORAL TABLET AMOXICILLIN-POT CLAVULANATE Inactive ZITHROMAX Z-REYNA 250 MG ORAL TABLET 2 today, then 1 daily for 4 d ays ZITHROMAX Z-REYNA 250 MG ORAL TABLET 819152 AZITHROMYCIN Inactive ZITHROMAX 250 MG ORAL TABLET 2 po today, then 1 po q days 2-5 20 14/03/21 ZITHROMAX 250 MG ORAL TABLET 395201 AZITHROMYCIN [facility] ZITHROMAX Z-REYNA 250 MG ORAL TABLET 2 today, then 1 daily for 4 d ays ZITHROMAX Z-REYNA 250 MG ORAL TABLET 002156 AZITHROMYCIN Inactive CEFDINIR 300 MG ORAL CAPSULE 1 po BID x 10 days 06/21 CEFDINIR 300 MG ORAL CAPSULE 20020704 CEFDINIR Inactive ZITHROMAX 250 MG ORAL TABLET 2 po today, then 1 po q days 2-5 20 13/08/10 ZITHROMAX 250 MG ORAL TABLET 584015 AZITHROMYCIN [facility] LEVAQUIN 500 MG ORAL TABLET 1 tablet by mouth daily 13/09/24 LEVAQUIN 500 MG ORAL TABLET 19971102 LEVOFLOXACIN Inactive SINGULAIR 10 MG ORAL TABLET 1 po qday for allergies 20 14/01/12 SINGULAIR 10 MG ORAL TABLET 20010504 MONTELUKAST SODIUM Inactive AMOXICILLIN 500 MG ORAL CAPSULE 2 po BID x 10 days 201 09/29/08 AMOXICILLIN 500 MG ORAL CAPSULE 814899 AMOXICILLIN Inactive PREDNISONE 20 MG ORAL TABLET 2 tabs daily for 3 days, 1 tab daily for 3 days, 1/2 tab daily for 2 days PREDNISONE 20 MG ORAL T ABLET 708732 PREDNISONE Inactive ZITHROMAX Z-REYNA 250 MG ORAL TABLET 2 today, then 1 daily for 4 d ays ZITHROMAX Z-REYNA 250 MG ORAL TABLET 760477 AZITHROMYCIN Inactive PREDNISONE 20 MG ORAL TABLET 2 tabs daily for 3 days, 1 tab daily for 3 days, 1/2 tab daily for 2 days PREDNISONE 20 MG ORAL T ABLET 920303 PREDNISONE Inactive ZITHROMAX 250 MG ORAL TABLET 2 po today, then 1 po q days 2-5 20 14/09/04 ZITHROMAX 250 MG ORAL TABLET 920049 AZITHROMYCIN [facility] AMOXICILLIN 500 MG ORAL CAPSULE 1 cap by mouth three times a day AMOXICILLIN 500 MG ORAL CAPSULE 965827 AMOXICILLIN Inactive TERBINAFINE HCL 250 MG ORAL TABLET 1 qDay for nail fungus 7 TERBINAFINE HCL 250 MG ORAL TABLET 631725 TERBINAFINE HCL Inact nael AUGMENTIN 875-125 MG ORAL TABLET 1 po BID x 10 days 16/03/22 AUGMENTIN 875-125 MG ORAL TABLET AMOXICILLIN-POT CLAVULANATE Inactive PREDNISONE 20 MG ORAL TABLET 2 po qd x 5 days PREDNISONE 20 MG ORAL TABLET 183977 PREDNISONE Inactive AZITHROMYCIN 250 MG ORAL TABLET 2 po qd x 1 day, then 1 po q d x 4 days AZITHROMYCIN 250 MG ORAL TABLET 962824 AZITHROMY GIOVANNI Inactive PREDNISONE 50 MG ORAL TABLET Take 50 mg dialy for 6 day s 7 PREDNISONE 50 MG ORAL TABLET 154513 PREDNISONE Inactive AUGMENTIN 875-125 MG ORAL TABLET 1 po BID x 10 days 18/04/16 AUGMENTIN 875-125 MG ORAL TABLET AMOXICILLIN-POT CLAVULANATE Inactive DOXYCYCLINE HYCLATE 100 MG ORAL CAPSULE 1 cap by mouth twice latasha ly DOXYCYCLINE HYCLATE 100 MG ORAL CAPSULE 0696945 DOXYCYCL INE HYCLATE Inactive PREDNISONE 20 MG ORAL TABLET Take 2 tabs day 1 and 2 and 1 t ab days 3 and 4 PREDNISONE 20 MG ORAL TABLET 830107 PREDNISONE Inactive AMOXICILLIN 500 MG ORAL CAPSULE 1 cap by mouth twice daily 10/21 AMOXICILLIN 500 MG ORAL CAPSULE 914487 AMOXICILLIN Inactive TRIAMCINOLONE ACETONIDE 0.1 % EXTERNAL OINTMENT Apply to affected areas TID PRN Rash/Itching for up 2 weeks TRIAMCINOLON E ACETONIDE 0.1 % EXTERNAL OINTMENT 8035425 TRIAMCINOLONE ACETONIDE Inactive ACYCLOVIR 800 MG ORAL TABLET 1 po 5 times daily x 7 days ACYCLOVIR 800 MG ORAL TABLET 678336 ACYCLOVIR Inactive Vital Signs Date Name Value [...] - Chem istry sodium, serum 139 mmol/L 908-088 6453/10/12 potassium, serum 3.8 mmol/L 3.5-5.2 chloride, serum [...] Panel - Chemistry sodium, serum 137 mmol/L 367-284 3730/10/08 carbon dioxide, venous blood 29.9 mmol/L 21.0-32 [...] 0.50 mg/dL 0.00-1.00 cholesterol, serum 324 mg/dL 949-145 2004/10/08 triglyceride, serum, fasting 130 mg/dL 30-200 HDL [...] negative Encounters Code Encounter Date Provider Facility CPT-[id number] Vst-Est Level IV 09:06:31 C ESAU Hu MD [facility] CPT-24021 Level 3 Est. Patient 14:16:41 CDT David Tin dle [facility] CPT-31998 Level 3 Est. Patient 13:57:55 CDT David Tin dle [facility] CPT-01406 Level 3 Est. Patient 16:08:07 CDT David Tin dle [facility] CPT-96941 Level 3 Est. Patient 16:53:54 CDT J Livan haas MD [facility] [place]-26233 [id number] Vst-Est Level IV 08:41:[address] Carlton Hu MD [facility] CPT-02993 Level 3 Est. Patient 09:46:49 REAL ESTATE SITE ANALYST David Tin dle [facility]-66380 [id number] Vst-Est Level III 11:12:16 CDT Yanet Bess DO [facility] CPT-82049 Level 3 Est. Patient 11:34:49 REAL ESTATE SITE ANALYST Perez Mora MD [facility] CPT-07713 Level 4 Est. Patient 09:51:32 REAL ESTATE SITE ANALYST Carlton rich MD [facility] [place]-62628 Level 3 Est. Patient 10:26:00 REAL ESTATE SITE ANALYST Elise stephenson [facility] CPT-46183 Level 3 Est. Patient 13:35:41 REAL ESTATE SITE ANALYST Carlton rich MD [facility] CPT-91028 Level 3 Est. Patient 10:03:52 REAL ESTATE SITE ANALYST Carlton rich MD [facility] CPT-49692 Level 3 Est. Patient 12:17:50 CDT Hugo Restrepo MD [facility] CPT-12888 Level 3 Est. Patient 13:42:38 CDT Elise Are ll [facility] CPT-16687 Level 3 Est. Patient 13:23:51 CDT Diya Mariana mango [facility] CPT-40820 Level 3 Est. Patient 14:22:19 REAL ESTATE SITE ANALYST Diya cobian [facility] CPT-92238 Level 3 Est. Patient 10:11:46 CDT Carlton rich MD [facility] CPT-84945 Level 3 Est. Patient 17:29:43 CDT Elise Are ll [facility] CPT-59127 Level 3 Est. Patient 11:58:06 CDT [address] [facility] CPT-10926 Level 4 Est. Patient 14:36:51 CDT Carlton rich MD [facility] CPT-60707 Level 3 Est. Patient 18:16:00 REAL ESTATE SITE ANALYST Blaine HERNANDEZ [facility] CPT-08731 Level 3 Est. Patient 09:45:49 REAL ESTATE SITE ANALYST Carlton rich MD [facility] CPT-35177 Level 3 Est. Patient 13:19:20 CDT Carlton rich MD [facility] CPT-42280 Level 3 Est. Patient 13:06:43 CDT Ridge tam DO [facility] CPT-37949 Level 3 Est. Patient 10:03:07 CDT Perez Mora MD [facility] CPT-49520 Level 3 Est. Patient 19:50:35 REAL ESTATE SITE ANALYST Carlton rich MD [facility] CPT-55249 Level 4 Est. Patient 18:05:01 REAL ESTATE SITE ANALYST Carlton rich MD [facility]-87457 Level 3 Est. Patient 10:45:55 REAL ESTATE SITE ANALYST Hugo Restrepo MD [facility]-09141 Level 3 Est. Patient 14:12:49 CDT Griffin HERNANDEZ [facility]-95004 Level 3 Est. Patient 17:37:24 CDT Carlton rich MD [facility]-31696 Level 3 Est. Patient 16:51:54 CDT Carlton rich MD [facility]-25470 Level 3 Est. Patient 12:18:11 CDT Hugo Restrepo MD [facility]-56597 Level 3 Est. Patient 11:30:25 CDT Marcy crisostomo MD PhD [facility]-69957 Level 3 Est. Patient 12:00:47 REAL ESTATE SITE ANALYST Carlton rich MD [facility]-64157 Level 3 Est. Patient 16:31:06 REAL ESTATE SITE ANALYST Carlton rich MD [facility]-39248 Level 3 Est. Patient 16:23:24 REAL ESTATE SITE ANALYST Ridge tam DO [facility]-45297 Level 3 Est. Patient 12:34:12 CDT Carlton rich MD [facility]-64896 Level 2 Est. Patient 15:43:33 CDT Robi armstrong MD [facility] [place]-54700 Level 4 Est. Patient 14:04:44 CDT Carlton rich MD [facility]-04818 Level 3 Est. Patient 05:47:59 CDT Ridge tam [facility]-64637 Level 3 Est. Patient 13:12:53 REAL ESTATE SITE ANALYST Carlton rich MD [facility] CPT-88493 Level 3 Est. Patient 14:26:53 CDT Hugo Restrepo MD [facility] Procedures Code Procedure Name Date Entry Date Standard Desc ription CPT-92889 Venipuncture Draw Fee 15:53:34 CDT CPT-000 Give Appropriate Flu Vaccine 14:14:31 CDT 2 CPT-J1040 Depo Medrol 80 mg (Methyl Prednisolone A cetate) 10:42:44 CDT CPT-J1100 Decadron 8mg (Dexamethasone) 10:42:44 CDT 2 CPT-J0696 Rocephin 1gm Inj Solr 14:32:13 CDT CPT-J1020 Depo Medrol 60 mg (Methyl Prednisolone A cetate) 14:32:13 CDT CPT-J1100 Decadron 6mg (Dexamethasone) 14:32:13 CDT 2 CPT-65202 Hip bilat min 2V w AP pelvis 13:16:20 CDT 2 CPT-23872 Pelvis only 13:07:33 CDT CPT-28762 Spec Collection and Handling Fee 11:25:12 C DT CPT-77427 Fluzone Quadrivalent Intramuscular Suspe nsion 0.5 ML 14:31:55 CDT CPT-76817 Abx/Therapy Injection 13:28:47 REAL ESTATE SITE ANALYST CPT-J2930 Solu Medrol 125 mg (Methyl Prednisolone Sodium Succinate) 12:00:47 REAL ESTATE SITE ANALYST CPT-99272 Venipuncture Draw Fee 11:33:31 CDT CPT-64619 EKG Trac and Interp 11:21:09 CDT CPT-30468 Chest 2V Frontal and Lat 11:21:09 CDT 12/15 CPT-57140 Venipuncture Draw Fee 08:02:34 CDT CPT-13831 Chest 2V Frontal and Lat 05:47:59 CDT 06/05
--- OUTSIDE RECORDS SUMMARY | 2019-10-08 09:59 | XMS REPORT | Clinical Summary ---
Author Author Caitlin, Juliana Martinez Organization [facility] [...] MD Headache Dermatitis, atopic 691.8 Active Carlton beltárn MD Other atopic dermatitis and related conditions [...] URI 465.9 Inactive Ridge Bess DO Ac native upper respiratory infections of unspecified site Body Mass Index 35.0-35.9 Adult Refinement 2017 Ridge Bess DO Body Mass Index 35.0-35.9, adult BMI 34-34.9 Refinement Cherelle Torres RN Body Mass Index 35.0-35.9, adult BMI 35-35.9 Refinement David Marianneamisha RICEN Body Mass Index 35.0-35.9, adult BMI 34-34.9 Refinement May Vivar MD Body Mass Index 35.0-35.9, adult BMI 35-35.9 Refinement David Marianne DINKEY OPERATOR SLATE Body Mass Index 35.0-35.9, adult BMI 33-33.9 Active David Marianne DINKEY OPERATOR SLATE Body Mass Index 35.0-35.9, adult Upper respiratory [...] Acute pharyngitis Shingles 053.9 Active David Marianne DINKEY OPERATOR SLATE Herpes zoster without mention of complication Allergic [...] bid spari ngly to rash TRIAMCINOLONE ACETONIDE 04194991621 No Longer Active Carlton Hu MD Active TYLENOL WITH CODEINE #3 300-30 MG ORAL TABLET ACETAMINOPHEN-CODEINE 69537270424 No Longer Active Carlton Hu MD Active TYLENOL WITH CODEINE #3 300-30 MG ORAL TABLET 1-2 po q6hr PRN Pa in ACETAMINOPHEN-CODEINE 90324998334 No Longer Active David Lopes AP RN Active ACYCLOVIR 800 MG ORAL TABLET 1 po 5 times daily x 7 days ACYCLOVIR 69196445004 No Longer Active Davidjerel Lopes DINKEY OPERATOR SLATE Active TOPAMAX 100 MG ORAL TABLET 1 by mouth twice daily TOPIRAMATE 67590546096 Active Columba Parrish Active TRIAMCINOLONE ACETONIDE 0.1 % EXTERNAL OINTMENT Apply to affected areas TID PRN Rash/Itching for up 2 weeks TRIAMCINOLONE ACETON KALYA 63905374438 No Longer Active David Lopes DINKEY OPERATOR SLATE Active AMOXICILLIN 500 MG ORAL CAPSULE 1 cap by mouth twice daily 10/21 AMOXICILLIN 02009737975 No Longer Active David Marianne DINKEY OPERATOR SLATE Active ELMIRON 100 MG ORAL CAPSULE 2 capsules in the morning and 1 capsule at night PENTOSAN POLYSULFATE SODIUM 98027633830 Active Cinthia cutler [employer] SOLICITOR Active CYMBALTA 30 MG ORAL CAPSULE DELAYED RELEASE PARTICLES 1 cap by mouth daily for depression DULOXETINE HCL 86374322615 No Longer Active Carlton Hu MD Active CYMBALTA 60 MG ORAL CAPSULE DELAYED RELEASE PARTICLES 1 cap by mouth daily for mood and pain DULOXETINE HCL 61428153090 Active Carlton Hu MD Active TUSSIONEX PENNKINETIC ER 10-8 MG/5ML ORAL SUSPENSION E XTENDED RELEASE 5ml po q12hr PRN Cough HYDROCOD POLST-CHLORPHEN POLST 69977874108 Active Carlton Hu MD Active PREDNISONE 20 MG ORAL TABLET Take 2 tabs day 1 and 2 and 1 t ab days 3 and 4 PREDNISONE 01423030760 No Longer Active David Marianne DINKEY OPERATOR SLATE Active DOXYCYCLINE HYCLATE 100 MG ORAL CAPSULE 1 cap by mouth twice latasha ly DOXYCYCLINE HYCLATE 03866788351 No Longer Active David Marianne DINKEY OPERATOR SLATE Active TOPAMAX 100 MG ORAL TABLET Take 1 tablet po bid TOPIRAMATE 20780384361 No Longer Active David Marianne DINKEY OPERATOR SLATE Active TUSSIONEX PENNKINETIC ER 10-8 MG/5ML ORAL SUSPENSION E XTENDED RELEASE 5ml po q12hr PRN Cough HYDROCOD POLST-CHLORPHEN POLST 5 0084277911 No Longer Active David Marianne DINKEY OPERATOR SLATE Active AUGMENTIN 875-125 MG ORAL TABLET 1 po BID x 10 days 18/04/16 AMOXICILLIN-POT CLAVULANATE 79567941183 No Longer Active David Marianne DINKEY OPERATOR SLATE Active PREDNISONE 50 MG ORAL TABLET Take 50 mg dialy for 6 day s 7 PREDNISONE 83619907526 No Longer Active David Marianne DINKEY OPERATOR SLATE Active TUSSIONEX PENNKINETIC ER 10-8 MG/5ML ORAL SUSPENSION E XTENDED RELEASE 5ml po q12hr PRN Cough HYDROCOD POLST-CHLORPHEN POLST 5 4634638947 No Longer Active Cherelle Torres RN Active PREDNISONE 20 MG ORAL TABLET two tabs by mouth today, then one tab by mouth days two and three and four PREDNISONE 91231543571 No Lo nger Active Cherelle Torres RN Active AZITHROMYCIN 250 MG ORAL TABLET 2 po qd x 1 day, then 1 po q d x 4 days AZITHROMYCIN 42020162833 No Longer Active Ridge Bess DO Active PREDNISONE 20 MG ORAL TABLET 2 po qd x 5 days P REDNISONE 18474832506 No Longer Active Perez Mora MD Active PROAIR HFA 108 (90 BASE) MCG/ACT INHALATION AEROSOL SO LUTION 2 puffs four times a day as needed ALBUTEROL SULFATE 29379279481 No Long er Active Becky FUENTES Active ASPIRIN 81 MG ORAL TABLET 1 po qd ASPIRIN 55652753637 Active Carlton Hu MD Active PREDNISONE 20 MG ORAL TABLET 1 tab twice daily for 3 d ay, then one daily for three days PREDNISONE 47598838379 No Longer Active Carlton Hu MD Active AUGMENTIN 875-125 MG ORAL TABLET 1 po BID x 10 days 20 16/03/22 AMOXICILLIN-POT CLAVULANATE 40233820834 No Longer Active Elise Garcia APRN Active TERBINAFINE HCL 250 MG ORAL TABLET 1 qDay for nail fungus 7 TERBINAFINE HCL 85864088836 No Longer Active Carlton Hu MD A ctive AMOXICILLIN 500 MG ORAL CAPSULE 1 cap by mouth three times a day AMOXICILLIN 87954077840 No Longer Active Carlton Hu MD Active ELMIRON 100 MG ORAL CAPSULE 2 tablets in the am and 1 tablet at hs PENTOSAN POLYSULFATE SODIUM 41398927913 No Longer Active Robert jade Hu MD Active MUCINEX D 60-600 MG ORAL TABLET EXTENDED RELEASE 12 HOUR 1 t ab po q am PSEUDOEPHEDRINE-GUAIFENESIN 72889180157 No Longer Act nael Carlton Hu MD Active MUCINEX DM MAXIMUM STRENGTH 60-1200 MG ORAL TABLET EXT ENDED RELEASE 12 HOUR 1 tab po q am DEXTROMETHORPHAN-GUAIFENESIN 73849466847 No Longer Active Carlton Hu MD Active TUSSIONEX PENNKINETIC ER 10-8 MG/5ML ORAL SUSPENSION E XTENDED RELEASE 5ml po q12hr PRN Cough HYDROCOD POLST-CHLORPHEN POLST 5 7726371115 No Longer Active Carlton Hu MD Active POTASSIUM CHLORIDE ER 20 MEQ ORAL TABLET EXTENDED RELE ASE Take 1 by mouth 4 times daily for 7 days POTASSIUM CHLORIDE 37266421842 No Longer Active Carlton Hu MD Active ZITHROMAX 250 MG ORAL TABLET 2 po today, then 1 po q days 2-5 20 14/09/04 AZITHROMYCIN 73926444863 No Longer Active Elise Garcia APRN Active TUSSIONEX PENNKINETIC ER 10-8 MG/5ML ORAL SUSPENSION E XTENDED RELEASE 5 ml twice a day as needed for cough HYDROCOD POLST-CHLORPH EN POLST 11444131787 No Longer Active Elise Garcia APRN Active MONTELUKAST SODIUM 10 MG ORAL TABLET 1 po daily for Allergy MONTELUKAST SODIUM 04713642010 Active Carlton Hu MD Ac tive TUSSIONEX PENNKINETIC ER 10-8 MG/5ML ORAL SUSPENSION E XTENDED RELEASE 5ml po q12hr PRN Cough HYDROCOD POLST-CHLORPHEN POLST 5 4084606758 No Longer Active Hugo Restrepo MD Active GABAPENTIN 100 MG ORAL CAPSULE 1 po BID for fibromyalgia GABAPENTIN 31965648898 Active ALFREDO Holly Active LYRICA 100 MG ORAL CAPSULE Take 1 tab po BID for fibromyalgia 20 11/08/21 PREGABALIN 87865447707 No Longer Active Elise Hitchcockll DINKEY OPERATOR SLATE A ctive PREDNISONE 20 MG ORAL TABLET 2 tabs daily for 3 days, 1 tab daily for 3 days, 1/2 tab daily for 2 days PREDNISONE 88803174002 No Longer Active Jillina Frazell DINKEY OPERATOR SLATE Active TUSSIONEX PENNKINETIC ER 10-8 MG/5ML ORAL SUSPENSION E XTENDED RELEASE 5 mL PO q 12 hrs PRN cough HYDROCOD POLST-CHLORPHEN POLST 416413 94631 No Longer Active Jillina Frazell DINKEY OPERATOR SLATE Active FLUTICASONE PROPIONATE 50 MCG/ACT NASAL SUSPENSION 2 s prays each nostril daily until bottle is empty FLUTICASONE PROPIONATE 350917938 99 No Longer Active Jillina Frazell DINKEY OPERATOR SLATE Active ASMANEX 60 METERED DOSES 220 MCG/INH INHALATION AEROSO L POWDER BREATH ACTIVATED 1 puff bid with rinse after MOMETASONE FUROATE 3921994 4102 No Longer Active Jillina Frazell DINKEY OPERATOR SLATE Active ZITHROMAX Z-REYNA 250 MG ORAL TABLET 2 today, then 1 daily for 4 d ays AZITHROMYCIN 94693115030 No Longer Active Elise Arell DINKEY OPERATOR SLATE Active TUSSIONEX PENNKINETIC ER 10-8 MG/5ML ORAL SUSPENSION E XTENDED RELEASE 5ml po q12hr PRN Cough HYDROCOD POLST-CHLORPHEN POLST 5 6233733277 No Longer Active Elise Arell DINKEY OPERATOR SLATE Active PREDNISONE 20 MG ORAL TABLET 2 tabs daily for 3 days, 1 tab daily for 3 days, 1/2 tab daily for 2 days PREDNISONE 12451169033 No Longer Active Jillina Frazell DINKEY OPERATOR SLATE Active AMOXICILLIN 500 MG ORAL CAPSULE 2 po BID x 10 days 201 09/29/08 AMOXICILLIN 34463026429 No Longer Active Jillina Frazell DINKEY OPERATOR SLATE Act nael SINGULAIR 10 MG ORAL TABLET 1 po qday for allergies 20 14/01/12 MONTELUKAST SODIUM 50431689395 No Longer Active Carlton Hu MD Active LEVAQUIN 500 MG ORAL TABLET 1 tablet by mouth daily 13/09/24 LEVOFLOXACIN 61508213208 No Longer Active Carlton Hu MD Acti ve FLUTICASONE PROPIONATE 50 MCG/ACT NASAL SUSPENSION 2 s prays each nostril daily for 2 weeks, then 1 spray each nostril daily. FLUTICASONE PROPIONATE 38763627221 Active Carlton Hu MD Active ZITHROMAX 250 MG ORAL TABLET 2 po today, then 1 po q days 2-5 20 13/08/10 AZITHROMYCIN 68725900418 No Longer Active Elise Garcia APRN Active XANAX 0.5 MG ORAL TABLET one tablet by mouth daily prn anxiety 2015 ALPRAZOLAM 86585711871 Active ALFREDO Holly Active CEFDINIR 300 MG ORAL CAPSULE 1 po BID x 10 days CEFDINIR 26019842080 No Longer Active Carlton Hu MD Active ZOCOR 40 MG ORAL TABLET 1 tab by mouth daily SI MVASTATIN 60523425564 No Longer Active Carlton Hu MD Active CYCLOBENZAPRINE HCL 10 MG ORAL TABLET 1 tablet by mouth BID prn had pain CYCLOBENZAPRINE HCL 75444796816 No Longer Active Jayden Hu MD Active LEVOFLOXACIN 500 MG ORAL TABLET 1 tab PO daily x 10 days LEVOFLOXACIN 69215424685 No Longer Active Carlton Hu MD Acti ve PREDNISONE 20 MG ORAL TABLET 3 tab PO qd x 2d, 2 tab P O qd x 2d, 1 tab PO qd x 2d, 1/2 tab PO qd x 2d PREDNISONE 50395602342 No Lo nger Active Carlton Hu MD Active FLUTICASONE PROPIONATE 50 MCG/ACT NASAL SUSPENSION 1 t o 2 sprays each nostril daily FLUTICASONE PROPIONATE 17669706354 No Longer Ac matthew HERNANDEZ Active CHERATUSSIN AC 100-10 MG/5ML ORAL SYRUP 1 tsp by mouth every 4 hours as needed for cough GUAIFENESIN-CODEINE 09736116917 No Longe r Active Blaine HERNANDEZ Active PROMETHAZINE-CODEINE 6.25-10 MG/5ML ORAL SYRUP 1 tsp b y mouth every 6 hours if needed for cough PROMETHAZINE-CODEINE 97786606676 No Longer Active Blaine HERNANDEZ Active CHERATUSSIN AC 100-10 MG/5ML ORAL SYRUP 1 tsp by mouth every 4 hours as needed for cough GUAIFENESIN-CODEINE 25573450336 No Longe r Active Blaine HERNANDEZ Active ZITHROMAX Z-REYNA 250 MG ORAL TABLET 2 today, then 1 daily for 4 d ays AZITHROMYCIN 65632306124 No Longer Active Columba Raida Act nael ZITHROMAX 250 MG ORAL TABLET 2 po today, then 1 po q days 2-5 20 14/03/21 AZITHROMYCIN 39795740747 No Longer Active Carlton Hu MD Active ZITHROMAX Z-REYNA 250 MG ORAL TABLET 2 today, then 1 daily for 4 d ays AZITHROMYCIN 96943212194 No Longer Active Columba Raida Act nael AUGMENTIN 875-125 MG ORAL TABLET 1 po BID x 10 days 13/01/20 AMOXICILLIN-POT CLAVULANATE 81945422926 No Longer Active Diya De Guzman APRN Active ZITHROMAX 250 MG ORAL TABLET 2 po today, then 1 po q days 2-5 20 12/08/14 AZITHROMYCIN 91102025900 No Longer Active Carlton Hu MD Active TRAMADOL HCL 50 MG ORAL TABLET 1 po tid with ES Tylenol TRAMADOL HCL 59347128506 Active ALFREDO Holly Active PREMARIN 0.625 MG ORAL TABLET TAKE 1 TAB BY MOUTH DAILY ESTROGENS CONJUGATED 05061614127 No Longer Active Ridge ROSAS ctive CYMBALTA 30 MG ORAL CAPSULE DELAYED RELEASE PARTICLES 1 cap by mouth daily DULOXETINE HCL 33645262212 No Longer Active Ridge Ya ee Active AMOXICILLIN 500 MG ORAL CAPSULE 1 tab by mouth 3 times daily x 10 days AMOXICILLIN 25466122459 No Longer Active Carlton bustamante MD Active AMOXICILLIN 500 MG ORAL CAPSULE 1 tab by mouth 3 times daily x 10 days AMOXICILLIN 67535563462 No Longer Active Carlton bustamante MD Active PROMETHAZINE-CODEINE 6.25-10 MG/5ML ORAL SYRUP 1 tsp b y mouth every 8 hours prn cough PROMETHAZINE-CODEINE 25716001291 No Longer Acti ve Carlton Hu MD Active MEDROL 4 MG ORAL TABLET THERAPY PACK 6 pills x 1 day, then 5 pills x 1 day then 4 pills x 1 day, then 3 pills x 1 day, then 2 pills x 1 day, then 1 pill x 1 day, then stop METHYLPREDNISOLONE 76489101838 No Long er Active Perez Mora MD Active AZITHROMYCIN 250 MG ORAL TABLET 2 po qd x 1 day, then 1 po q d x 4 days AZITHROMYCIN 32980921688 No Longer Active Perez Ambriz MD Active SYMBICORT 160-4.5 MCG/ACT INHALATION AEROSOL 2 puffs bid wit h rinse after BUDESONIDE-FORMOTEROL FUMARATE 41555338303 N o Longer Active Perez Mora MD Active LYRICA 75 MG ORAL CAPSULE TAKE 1 CAPSULE BY MOUTH TWICE DAILY PREGABALIN 39073530943 No Longer Active Carlton Hu MD Acti ve TOPAMAX 25 MG ORAL TABLET 1 qHS x 1 week, then 1 BID x 1 week, then 1 qAM and 2 qHS x 1 week, then 2 BID (migraine prevention) T OPIRAMATE 76916397160 No Longer Active Jerica FUENTES Active TOPAMAX 50 MG ORAL TABLET take 1 tab po BID for migraines. 07/02 TOPIRAMATE 25442302884 No Longer Active Jerica FUENTES Active TRIAMCINOLONE ACETONIDE 0.1 % EXTERNAL CREAM apply three roger es daily prn rash TRIAMCINOLONE ACETONIDE 59144150022 No Longer Active Carlton Hu MD Active PAXIL 40 MG ORAL TABLET take 1 tab po qday for depression 0 PAROXETINE HCL 32020991539 Active Carlton Hu MD Active CHERATUSSIN AC 100-10 MG/5ML ORAL SYRUP 5ml po q6hr PRN Cough 20 13/04/14 GUAIFENESIN-CODEINE 90792937516 No Longer Active Carlton Hu MD Active MEDROL 4 MG ORAL TABLET THERAPY PACK 6 tabs on day 1, 5 tabs on day 2, 4 tabs on day 3, 3 tabs on day 4, 2 tabs on day 5, 1 tab on day 6 2013 METHYLPREDNISOLONE 24192747725 No Longer Active Perez Mora MD Active AZITHROMYCIN 250 MG ORAL TABLET 2 po qd x 1 day, then 1 po q d x 4 days AZITHROMYCIN 19109207033 No Longer Active Perez Ambriz MD Active PROPRANOLOL HCL 60 MG ORAL TABLET 1 PO Q D PROPRANOLOL HCL 50881976430 No Longer Active Perez Mora MD Activ e CHERATUSSIN AC 100-10 MG/5ML ORAL SYRUP take one tsp po Q 6h ours prn cough GUAIFENESIN-CODEINE 60181656311 No Longer Active Zia Mora MD Active AUGMENTIN 875-125 MG ORAL TABLET 1 tab by mouth twice daily with food AMOXICILLIN-POT CLAVULANATE 73358626322 No Longer Act nael Perez Mora MD Active CHERATUSSIN AC 100-10 MG/5ML ORAL SYRUP 1 tsp by mouth every 4 hours as needed for cough GUAIFENESIN-CODEINE 99164854729 No Longe r Active Hugo Restrepo MD Active ACETAMINOPHEN-CODEINE #3 300-30 MG ORAL TABLET 1 PO Q 4-6 HRS FL N PAIN ACETAMINOPHEN-CODEINE 09518428931 No Longer Active Hugo Restrepo MD Active LEVAQUIN 500 MG ORAL TABLET take one po QD LEVO FLOXACIN 81634562362 No Longer Active Griffin HERNANDEZ Active PREDNISONE 20 MG ORAL TABLET Take 3 tabs daily for 3 d ays, 2 tabs daily for 3 days, 1 tab daily for 3 days, 1/2 tab daily for 3 days 11/07 PREDNISONE 06781800364 No Longer Active Carlton Hu MD Acti ve AVELOX 400 MG ORAL TABLET 1 tab by mouth daily MOXIFLOXACIN HCL 77670291880 No Longer Active Carlton Hu MD Active CHERATUSSIN AC 100-10 MG/5ML ORAL SYRUP 1 tsp by mouth every 4 hours as needed for cough GUAIFENESIN-CODEINE 76211633648 No Longe r Active Hugo Restrepo MD Active AVELOX 400 MG ORAL TABLET 1 tab by mouth daily MOXIFLOXACIN HCL 71287271349 No Longer Active Marcy De La Rosa MD PhD Active TERBINAFINE HCL 250 MG ORAL TABLET 1 qDay T ERBINAFINE HCL 86680897895 No Longer Active Marcy De La Rosa MD PhD Active CHERATUSSIN AC 100-10 MG/5ML ORAL SYRUP 1 tsp by mouth every 4 hours as needed for cough GUAIFENESIN-CODEINE 63940767002 No Longe r Active Marcy De La Rosa MD PhD Active AVELOX 400 MG ORAL TABLET 1 tab by mouth daily MOXIFLOXACIN HCL 58549942139 No Longer Active Marcy De La Rosa MD PhD Active HYDROCODONE-ACETAMINOPHEN 5-325 MG ORAL TABLET 1 po q 6hr PRN co ugh HYDROCODONE-ACETAMINOPHEN 22648167969 No Longer Active Marcy De La Rosa MD PhD Active PREDNISONE 20 MG ORAL TABLET 2 tabs daily for 3 days, 1 tab daily for 3 days, 1/2 tab daily for 2 days PREDNISONE 24475244149 No Longer Active Carlton Hu MD Active CEFDINIR 300 MG ORAL CAPSULE by mouth twice a day 2011 CEFDINIR 82017217515 No Longer Active Carlton Hu MD Acti ve HYDROCHLOROTHIAZIDE 25 MG ORAL TABLET 1 TAB PO DAILY HYDROCHLOROTHIAZIDE 12590728161 Active Carlton Hu MD A ctive ACETAMINOPHEN-CODEINE #3 300-30 MG ORAL TABLET 1 tablet po q 4-6 hrs prn pain ACETAMINOPHEN-CODEINE 19188986558 No Longer Active Ridge Bess DO Active ZITHROMAX 250 MG ORAL TABLET 2 po today, then 1 po q days 2-5 20 03/07/07 AZITHROMYCIN 40163274716 No Longer Active Carlton Hu MD Active CHERATUSSIN AC 100-10 MG/5ML ORAL SYRUP take 1 tsp po q4-6 h ours prn cough GUAIFENESIN-CODEINE 85654761132 No Longer Active Jayden Hu MD Active ACETAMINOPHEN-CODEINE #3 300-30 MG ORAL TABLET 1 PO Q 4-6 HR PRN PAIN ACETAMINOPHEN-CODEINE 91012471653 No Longer Active Da raimundo Hu MD Active LORTAB 7.5-500 MG/15ML ORAL ELIXIR 7.5 ml po q 4 hour prn cough HYDROCODONE-ACETAMINOPHEN 54508708900 No Longer Active Carlton Hu MD Active PREDNISONE 20 MG ORAL TABLET 1 po bid 3 days, then 1 po q day 3 days PREDNISONE 64964615413 No Longer Active Carlton Hu MD Active CEFDINIR 300 MG ORAL CAPSULE by mouth twice a day 2011 CEFDINIR 09028428941 No Longer Active Carlton Hu MD Acti ve CEFDINIR 300 MG ORAL CAPSULE by mouth twice a day 2010 CEFDINIR 14173928437 No Longer Active Carlton Hu MD Acti ve CEFDINIR 300 MG ORAL CAPSULE by mouth twice a day 2010 CEFDINIR 30293463319 No Longer Active Carlton Hu MD Acti ve TESSALON PERLES 100 MG ORAL CAPSULE 1 tablet by mouth 3 times daily as needed for cough BENZONATATE 61677135091 No Longer Active Carlton Hu MD Active CEFDINIR 300 MG ORAL CAPSULE by mouth twice a day 2010 CEFDINIR 01290290344 No Longer Active Carlton Hu MD Acti ve ZITHROMAX Z-REYNA 250 MG ORAL TABLET 2 today, then 1 daily for 4 d ays AZITHROMYCIN 50152884888 No Longer Active Hugo Restrepo MD Active TESSALON PERLES 100 MG ORAL CAPSULE 1 tablet by mouth 3 times daily as needed for cough TESSALON PERLES 100 MG ORAL CAPSULE 67149 7 BENZONATATE Inactive PREDNISONE 20 MG ORAL TABLET 1 po bid 3 days, then 1 po q day 3 days PREDNISONE 20 MG ORAL TABLET 546173 PREDNISONE [place] ctive LORTAB 7.5-500 MG/15ML ORAL ELIXIR 7.5 ml po q 4 hour prn cough LORTAB 7.5-500 MG/15ML ORAL ELIXIR HYDROCODONE-A CETAMINOPHEN Inactive ACETAMINOPHEN-CODEINE #3 300-30 MG ORAL TABLET 1 PO Q 4-6 HR PRN PAIN ACETAMINOPHEN-CODEINE #3 300-30 MG ORAL TABLET 9 91831 ACETAMINOPHEN-CODEINE Inactive CHERATUSSIN AC 100-10 MG/5ML ORAL SYRUP take 1 tsp po q4-6 h ours prn cough CHERATUSSIN AC 100-10 MG/5ML ORAL SYRUP 942588 GUAIFENESIN-CODEINE Inactive ACETAMINOPHEN-CODEINE #3 300-30 MG ORAL TABLET 1 tablet po q 4-6 hrs prn pain ACETAMINOPHEN-CODEINE #3 300-30 MG ORAL TABLET 525680 ACETAMINOPHEN-CODEINE Inactive HYDROCODONE-ACETAMINOPHEN 5-325 MG ORAL TABLET 1 po q 6hr PRN co ugh HYDROCODONE-ACETAMINOPHEN 5-325 MG ORAL TABLET 775695 HYDROCODONE-ACETAMINOPHEN Inactive AVELOX 400 MG ORAL TABLET 1 tab by mouth daily AVELOX 400 MG ORAL TABLET MOXIFLOXACIN HCL Inactive CHERATUSSIN AC 100-10 MG/5ML ORAL SYRUP 1 tsp by mouth every 4 hours as needed for cough CHERATUSSIN AC 100-10 MG/5ML ORAL SYRUP 9 63633 GUAIFENESIN-CODEINE Inactive TERBINAFINE HCL 250 MG ORAL TABLET 1 qDay 07/08 TERBINAFINE HCL 250 MG ORAL TABLET 016387 TERBINAFINE HCL Inactive CHERATUSSIN AC 100-10 MG/5ML ORAL SYRUP 1 tsp by mouth every 4 hours as needed for cough CHERATUSSIN AC 100-10 MG/5ML ORAL SYRUP 9 60202 GUAIFENESIN-CODEINE Inactive ACETAMINOPHEN-CODEINE #3 300-30 MG ORAL TABLET 1 PO Q 4-6 HRS FL N PAIN ACETAMINOPHEN-CODEINE #3 300-30 MG ORAL TABLET 167354 ACETAMINOPHEN-CODEINE Inactive CHERATUSSIN AC 100-10 MG/5ML ORAL SYRUP 1 tsp by mouth every 4 hours as needed for cough CHERATUSSIN AC 100-10 MG/5ML ORAL SYRUP 9 42210 GUAIFENESIN-CODEINE Inactive AUGMENTIN 875-125 MG ORAL TABLET 1 tab by mouth twice daily with food AUGMENTIN 875-125 MG ORAL TABLET AMOXICIL MADELINE-POT CLAVULANATE Inactive CHERATUSSIN AC 100-10 MG/5ML ORAL SYRUP take one tsp po Q 6h ours prn cough CHERATUSSIN AC 100-10 MG/5ML ORAL SYRUP 818110 GUAIFENESIN-CODEINE Inactive PROPRANOLOL HCL 60 MG ORAL TABLET 1 PO Q D PROPRANOLOL HCL 60 MG ORAL TABLET 549807 PROPRANOLOL HCL Inactive TOPAMAX 50 MG ORAL TABLET take 1 tab po BID for migraines. 07/02 TOPAMAX 50 MG ORAL TABLET 031828 TOPIRAMATE Inacti ve TOPAMAX 25 MG ORAL TABLET 1 qHS x 1 week, then 1 BID x 1 week, then 1 qAM and 2 qHS x 1 week, then 2 BID (migraine prevention) TOPAMAX 25 MG ORAL TABLET 816975 TOPIRAMATE Inactive LYRICA 75 MG ORAL CAPSULE TAKE 1 CAPSULE BY MOUTH TWICE DAILY LYRICA 75 MG ORAL CAPSULE 342941 PREGABALIN Inactive SYMBICORT 160-4.5 MCG/ACT INHALATION AEROSOL 2 puffs bid wit h rinse after SYMBICORT 160-4.5 MCG/ACT INHALATION AEROSOL BUDESONIDE- FORMOTEROL FUMARATE Inactive PROMETHAZINE-CODEINE 6.25-10 MG/5ML ORAL SYRUP 1 tsp b y mouth every 8 hours prn cough PROMETHAZINE-CODEINE 6.25-10 MG/ 5ML ORAL SYRUP 002360 PROMETHAZINE-CODEINE Inactive CYMBALTA 30 MG ORAL CAPSULE DELAYED RELEASE PARTICLES 1 cap by mouth daily CYMBALTA 30 MG ORAL CAPSULE DELAYED RELE ASE PARTICLES 441229 DULOXETINE HCL Inactive PREMARIN 0.625 MG ORAL TABLET TAKE 1 TAB BY MOUTH DAILY PREMARIN 0.625 MG ORAL TABLET ESTROGENS CONJUGATED Inactive CHERATUSSIN AC 100-10 MG/5ML ORAL SYRUP 1 tsp by mouth every 4 hours as needed for cough CHERATUSSIN AC 100-10 MG/5ML ORAL SYRUP 9 03213 GUAIFENESIN-CODEINE Inactive PROMETHAZINE-CODEINE 6.25-10 MG/5ML ORAL SYRUP 1 tsp b y mouth every 6 hours if needed for cough PROMETHAZINE-CODEINE 6.25-10 MG/5ML ORAL SYRUP 684121 PROMETHAZINE-CODEINE Inactive CHERATUSSIN AC 100-10 MG/5ML ORAL SYRUP 1 tsp by mouth every 4 hours as needed for cough CHERATUSSIN AC 100-10 MG/5ML ORAL SYRUP 9 59705 GUAIFENESIN-CODEINE Inactive FLUTICASONE PROPIONATE 50 MCG/ACT NASAL SUSPENSION 1 t o 2 sprays each nostril daily FLUTICASONE PROPIONATE 50 MCG/AC T NASAL SUSPENSION 2313391 FLUTICASONE PROPIONATE Inactive PREDNISONE 20 MG ORAL TABLET 3 tab PO qd x 2d, 2 tab P O qd x 2d, 1 tab PO qd x 2d, 1/2 tab PO qd x 2d PREDNISONE 20 MG ORAL TAB LET 306586 PREDNISONE Inactive LEVOFLOXACIN 500 MG ORAL TABLET 1 tab PO daily x 10 days LEVOFLOXACIN 500 MG ORAL TABLET 314266 LEVOFLOXACIN Inactive CYCLOBENZAPRINE HCL 10 MG ORAL TABLET 1 tablet by mouth BID prn had pain CYCLOBENZAPRINE HCL 10 MG ORAL TABLET 158213 CYCLOBENZAPRINE HCL Inactive ZOCOR 40 MG ORAL TABLET 1 tab by mouth daily 4 ZOCOR 40 MG ORAL TABLET 266253 SIMVASTATIN Inactive TUSSIONEX PENNKINETIC ER 10-8 MG/5ML [...] FLUTICASONE PROPIO EFE 50 MCG/ACT NASAL SUSPENSION 6882569 FLUTICASONE PROPIONATE Inactive TUSSIONEX PENNKINETIC ER 10-8 MG/5ML ORAL SUSPENSION E XTENDED RELEASE 5 mL PO q 12 hrs PRN cough TUSSIONEX PENNKINETI C ER 10-8 MG/5ML ORAL SUSPENSION EXTENDED RELEASE HYDROCOD POLST-CHLORPHEN POLST I nactive LYRICA 100 MG ORAL CAPSULE Take 1 tab po BID for fibromyalgia 20 11/08/21 LYRICA 100 MG ORAL CAPSULE 780337 PREGABALIN Inact nael TUSSIONEX PENNKINETIC ER 10-8 [...] three days PREDNISONE 20 MG ORAL TABLET 229063 PREDNIS ONE Inactive PROAIR HFA 108 (90 BASE) MCG/ACT INHALATION AEROSOL SO LUTION 2 puffs four times a day as needed PROAIR HFA 108 (90 B ASE) MCG/ACT INHALATION AEROSOL SOLUTION ALBUTEROL SULFATE Inactive PREDNISONE 20 MG ORAL TABLET two tabs by mouth today, then one tab by mouth days two and three and four PREDNISONE 20 MG ORAL TAB LET 260153 PREDNISONE Inactive TUSSIONEX PENNKINETIC ER 10-8 MG/5ML [...] bid 04/20 TOPAMAX 100 MG ORAL TABLET 974311 TOPIRAMATE Inactive CYMBALTA 30 MG ORAL CAPSULE DELAYED RELEASE PARTICLES 1 cap by mouth daily for depression CYMBALTA 30 MG ORAL CAPSULE DELAYED RELEASE PARTICLES [id number] DULOXETINE HCL Inactive TYLENOL WITH CODEINE #3 300-30 MG ORAL TABLET 1-2 po q6hr PRN Pa in TYLENOL WITH CODEINE #3 300-30 MG ORAL TABLET 236137 ACETAMINOPHEN-CODEINE Inactive TYLENOL WITH CODEINE #3 300-30 MG ORAL TABLET TYLENOL WITH CODEINE #3 300-30 MG ORAL TABLET 556103 ACETAMINOPHEN-CODEINE Inactive TRIAMCINOLONE ACETONIDE 0.1 % EXTERNAL CREAM apply bid spari ngly to rash TRIAMCINOLONE ACETONIDE 0.1 % EXTERNAL CREAM 101 4314 TRIAMCINOLONE ACETONIDE Inactive ZITHROMAX Z-REYNA 250 MG ORAL TABLET 2 today, then 1 daily for 4 d ays ZITHROMAX Z-REYNA 250 MG ORAL TABLET 257877 AZITHROMYCIN Inactive CEFDINIR 300 MG ORAL CAPSULE [...] 2-5 03/07/07 ZITHROMAX 250 MG ORAL TABLET 349712 AZITHROMYCIN [place] ctive CEFDINIR 300 MG ORAL CAPSULE by mouth twice a day 2011 CEFDINIR 300 MG ORAL CAPSULE [id number] CEFDINIR Inactive PREDNISONE 20 MG ORAL TABLET 2 tabs daily for 3 days, 1 tab daily for 3 days, 1/2 tab daily for 2 days PREDNISONE 20 MG ORAL T ABLET 783190 PREDNISONE Inactive AVELOX 400 MG ORAL TABLET [...] days 11/07 PREDNISONE 20 MG ORAL TABLET 084006 PREDNISONE Inactive LEVAQUIN 500 MG ORAL TABLET take one po QD LEVAQUIN 500 MG ORAL TABLET 334464 LEVOFLOXACIN Inactive AZITHROMYCIN 250 MG ORAL TABLET 2 po qd x 1 day, then 1 po q d x 4 days AZITHROMYCIN 250 MG ORAL TABLET 413203 AZITHROMY GIOVANNI Inactive MEDROL 4 MG ORAL TABLET THERAPY PACK 6 tabs on day 1, 5 tabs on day 2, 4 tabs on day 3, 3 tabs on day 4, 2 tabs on day 5, 1 tab on day 6 2013 MEDROL 4 MG ORAL TABLET THERAPY PACK 362006 METHYLPREDNISOLONE [place] ctive CHERATUSSIN AC 100-10 MG/5ML ORAL SYRUP 5ml po q6hr PRN Cough 20 13/04/14 CHERATUSSIN AC 100-10 MG/5ML ORAL SYRUP 406055 GUAIFENE SIN-CODEINE Inactive TRIAMCINOLONE ACETONIDE 0.1 % EXTERNAL CREAM apply three roger es daily prn rash TRIAMCINOLONE ACETONIDE 0.1 % EXTERNAL CREAM 101 4314 TRIAMCINOLONE ACETONIDE Inactive AZITHROMYCIN 250 MG ORAL TABLET 2 po qd x 1 day, then 1 po q d x 4 days AZITHROMYCIN 250 MG ORAL TABLET 751729 AZITHROMY GIOVANNI Inactive MEDROL 4 MG ORAL TABLET THERAPY PACK 6 pills x 1 day, then 5 pills x 1 day then 4 pills x 1 day, then 3 pills x 1 day, then 2 pills x 1 day, then 1 pill x 1 day, then stop MEDROL 4 MG ORAL TABLET THERAPY PACK 115761 METHYLPREDNISOLONE Inactive AMOXICILLIN 500 MG ORAL CAPSULE 1 tab by mouth 3 times daily x 10 days AMOXICILLIN 500 MG ORAL CAPSULE 800853 AMOXICILL IN Inactive AMOXICILLIN 500 MG ORAL CAPSULE 1 tab by mouth 3 times daily x 10 days AMOXICILLIN 500 MG ORAL CAPSULE 982729 AMOXICILL IN Inactive ZITHROMAX 250 MG ORAL TABLET 2 po today, then 1 po q days 2-5 20 12/08/14 ZITHROMAX 250 MG ORAL TABLET 477838 AZITHROMYCIN [place] [facility] AUGMENTIN 875-125 MG ORAL TABLET 1 po BID x 10 days 20 13/01/20 AUGMENTIN 875-125 MG ORAL TABLET AMOXICILLIN-POT CLAVULANATE Inactive ZITHROMAX Z-REYNA 250 MG ORAL TABLET 2 today, then 1 daily for 4 d ays ZITHROMAX Z-REYNA 250 MG ORAL TABLET 147421 AZITHROMYCIN Inactive ZITHROMAX 250 MG ORAL TABLET 2 po today, then 1 po q days 2-5 20 14/03/21 ZITHROMAX 250 MG ORAL TABLET 140801 AZITHROMYCIN [place] ctive ZITHROMAX Z-REYNA 250 MG ORAL TABLET 2 today, then 1 daily for 4 d ays ZITHROMAX Z-REYNA 250 MG ORAL TABLET 005469 AZITHROMYCIN Inactive CEFDINIR 300 MG ORAL CAPSULE 1 po BID x 10 days 06/21 CEFDINIR 300 MG ORAL CAPSULE 20020704 CEFDINIR Inactive ZITHROMAX 250 MG ORAL TABLET 2 po today, then 1 po q days 2-5 20 13/08/10 ZITHROMAX 250 MG ORAL TABLET 198166 AZITHROMYCIN [place] [facility] LEVAQUIN 500 MG ORAL TABLET 1 tablet by mouth daily 13/09/24 LEVAQUIN 500 MG ORAL TABLET 977312 LEVOFLOXACIN Inactive SINGULAIR 10 MG ORAL TABLET 1 po qday for allergies 20 14/01/12 SINGULAIR 10 MG ORAL TABLET 159716 MONTELUKAST SODIUM Inactive AMOXICILLIN 500 MG ORAL CAPSULE 2 po BID x 10 days 201 09/29/08 AMOXICILLIN 500 MG ORAL CAPSULE 889676 AMOXICILLIN Inactive PREDNISONE 20 MG ORAL TABLET 2 tabs daily for 3 days, 1 tab daily for 3 days, 1/2 tab daily for 2 days PREDNISONE 20 MG ORAL T ABLET 072819 PREDNISONE Inactive ZITHROMAX Z-REYNA 250 MG ORAL TABLET 2 today, then 1 daily for 4 d ays ZITHROMAX Z-REYNA 250 MG ORAL TABLET 575050 AZITHROMYCIN Inactive PREDNISONE 20 MG ORAL TABLET 2 tabs daily for 3 days, 1 tab daily for 3 days, 1/2 tab daily for 2 days PREDNISONE 20 MG ORAL T ABLET 248115 PREDNISONE Inactive ZITHROMAX 250 MG ORAL TABLET 2 po today, then 1 po q days 2-5 20 14/09/04 ZITHROMAX 250 MG ORAL TABLET 029956 AZITHROMYCIN [place] AMOXICILLIN 500 MG ORAL CAPSULE 1 cap by mouth three times a day AMOXICILLIN 500 MG ORAL CAPSULE 121199 AMOXICILLIN Inactive TERBINAFINE HCL 250 MG ORAL TABLET 1 qDay for nail fungus 7 TERBINAFINE HCL 250 MG ORAL TABLET 873361 TERBINAFINE HCL Inact nael AUGMENTIN 875-125 MG ORAL TABLET 1 po BID x 10 days 16/03/22 AUGMENTIN 875-125 MG ORAL TABLET AMOXICILLIN-POT CLAVULANATE Inactive PREDNISONE 20 MG ORAL TABLET 2 po qd x 5 days PREDNISONE 20 MG ORAL TABLET 718145 PREDNISONE Inactive AZITHROMYCIN 250 MG ORAL TABLET 2 po qd x 1 day, then 1 po q d x 4 days AZITHROMYCIN 250 MG ORAL TABLET 994105 AZITHROMY GIOVANNI Inactive PREDNISONE 50 MG ORAL TABLET Take 50 mg dialy for 6 day s 7 PREDNISONE 50 MG ORAL TABLET 624600 PREDNISONE Inactive AUGMENTIN 875-125 MG ORAL TABLET 1 po BID x 10 days 18/04/16 AUGMENTIN 875-125 MG ORAL TABLET AMOXICILLIN-POT CLAVULANATE Inactive DOXYCYCLINE HYCLATE 100 MG ORAL CAPSULE 1 cap by mouth twice latasha ly DOXYCYCLINE HYCLATE 100 MG ORAL CAPSULE 5906437 DOXYCYCL INE HYCLATE Inactive PREDNISONE 20 MG ORAL TABLET Take 2 tabs day 1 and 2 and 1 t ab days 3 and 4 PREDNISONE 20 MG ORAL TABLET 078000 PREDNISONE Inactive AMOXICILLIN 500 MG ORAL CAPSULE 1 cap by mouth twice daily 10/21 AMOXICILLIN 500 MG ORAL CAPSULE 933223 AMOXICILLIN Inactive TRIAMCINOLONE ACETONIDE 0.1 % EXTERNAL OINTMENT Apply to affected areas TID PRN Rash/Itching for up 2 weeks TRIAMCINOLON E ACETONIDE 0.1 % EXTERNAL OINTMENT 6027667 TRIAMCINOLONE ACETONIDE Inactive ACYCLOVIR 800 MG ORAL TABLET 1 po 5 times daily x 7 days ACYCLOVIR 800 MG ORAL TABLET 324285 ACYCLOVIR Inactive Vital Signs Date Name Value [...] - Chem istry sodium, serum 139 mmol/L 432-760 5165/10/12 potassium, serum 3.8 mmol/L 3.5-5.2 chloride, serum [...] negative Encounters Code Encounter Date Provider Facility CPT-04971 [id number] Vst-Est Level IV 09:06:31 C ESAU Hu MD [facility] CPT-31223 Level 3 Est. Patient 14:16:41 CDT David Tin dle [facility] CPT-06637 Level 3 Est. Patient 13:57:55 CDT David Tin dle [facility] CPT-78158 Level 3 Est. Patient 16:08:07 CDT David Tin dle [facility] CPT-17900 Level 3 Est. Patient 16:53:54 CDT May haas MD [facility]-52242 [id number] Vst-Est Level IV 08:41:[address] Carlton Hu MD [facility] CPT-92054 Level 3 Est. Patient 09:46:49 FUND DEVELOPMENT MANAGER David Tin dle [facility]-95857 [id number] Vst-Est Level III 11:12:16 CDT Yanet Bess DO [facility] CPT-18090 Level 3 Est. Patient 11:34:49 FUND DEVELOPMENT MANAGER Perez Mora MD [facility] CPT-51883 Level 4 Est. Patient 09:51:32 FUND DEVELOPMENT MANAGER Carlton rich MD [facility] CPT-86566 Level 3 Est. Patient 10:26:00 FUND DEVELOPMENT MANAGER Elise stephenson [facility] CPT-23665 Level 3 Est. Patient 13:35:41 FUND DEVELOPMENT MANAGER Carlton rich MD [facility] CPT-24943 Level 3 Est. Patient 10:03:52 FUND DEVELOPMENT MANAGER Carlton rich MD [facility] CPT-52916 Level 3 Est. Patient 12:17:50 CDT Hugo Restrepo MD [facility]-32170 Level 3 Est. Patient 13:42:38 CDT Elise Are [facility] CPT-51012 Level 3 Est. Patient 13:23:51 CDT Diya Mariana cobian [facility] CPT-39082 Level 3 Est. Patient 14:22:19 FUND DEVELOPMENT MANAGER Venuriley Mariana cobian [facility] CPT-79000 Level 3 Est. Patient 10:11:46 CDT Carlton rich MD [facility] CPT-51650 Level 3 Est. Patient 17:29:43 CDT Elise Are [facility] CPT-92187 Level 3 Est. Patient 11:58:06 CDT Elise Are [facility] CPT-51714 Level 4 Est. Patient 14:36:51 CDT Carlton rich MD [facility] CPT-98002 Level 3 Est. Patient 18:16:00 FUND DEVELOPMENT MANAGER Blaine HERNANDEZ [facility] CPT-51215 Level 3 Est. Patient 09:45:49 FUND DEVELOPMENT MANAGER Carlton rich MD [facility] CPT-49728 Level 3 Est. Patient 13:19:20 CDT Carlton rich MD [facility] CPT-90839 Level 3 Est. Patient 13:06:43 CDT Ridge tam DO [facility] CPT-86504 Level 3 Est. Patient 10:03:07 CDT Perez Mora MD [facility] CPT-03512 Level 3 Est. Patient 19:50:35 FUND DEVELOPMENT MANAGER Carlton rich MD [facility] CPT-32231 Level 4 Est. Patient 18:05:01 FUND DEVELOPMENT MANAGER Carlton rich MD [facility] CPT-26049 Level 3 Est. Patient 10:45:55 FUND DEVELOPMENT MANAGER Hugo Restrepo MD [facility] CPT-15429 Level 3 Est. Patient 14:12:49 CDT Griffin HERNANDEZ [facility] CPT-05045 Level 3 Est. Patient 17:37:24 CDT Carlton rich MD [facility] CPT-41299 Level 3 Est. Patient 16:51:54 CDT Carlton rich MD [facility] CPT-05152 Level 3 Est. Patient 12:18:11 CDT Hugo Restrepo MD [facility] CPT-09894 Level 3 Est. Patient 11:30:25 CDT Marcy crisostomo MD PhD [facility] CPT-98044 Level 3 Est. Patient 12:00:47 FUND DEVELOPMENT MANAGER Carlton rich MD [facility] CPT-61959 Level 3 Est. Patient 16:31:06 FUND DEVELOPMENT MANAGER Carlton rich MD [facility] CPT-91750 Level 3 Est. Patient 16:23:24 FUND DEVELOPMENT MANAGER Ridge tam DO [facility] CPT-43168 Level 3 Est. Patient 12:34:12 CDT Carlton rich MD [facility] CPT-29175 Level 2 Est. Patient 15:43:33 CDT Robi armstrong MD [facility] CPT-13865 Level 4 Est. Patient 14:04:44 CDT Carlton rich MD [facility] CPT-60665 Level 3 Est. Patient 05:47:59 CDT Ridge tam [facility] CPT-11892 Level 3 Est. Patient 13:12:53 FUND DEVELOPMENT MANAGER Carlton rich MD [facility] CPT-92463 Level 3 Est. Patient 14:26:53 CDT Hugo Restrepo MD [facility] Procedures Code Procedure Name Date Entry Date Standard Desc ription CPT-03716 Venipuncture Draw Fee 15:53:34 CDT CPT-000 Give Appropriate Flu Vaccine 14:14:31 CDT 2 CPT-J1040 Depo Medrol 80 mg (Methyl Prednisolone A cetate) 10:42:44 CDT CPT-J1100 Decadron 8mg (Dexamethasone) 10:42:44 CDT 2 CPT-J0696 Rocephin 1gm Inj Solr 14:32:13 CDT CPT-J1020 Depo Medrol 60 mg (Methyl Prednisolone A cetate) 14:32:13 CDT CPT-J1100 Decadron 6mg (Dexamethasone) 14:32:13 CDT 2 CPT-92562 Hip bilat min 2V w AP pelvis 13:16:20 CDT CPT-67398 Pelvis only 13:07:33 CDT CPT-97237 Spec Collection and Handling Fee 11:25:12 C DT CPT-90906 Fluzone Quadrivalent Intramuscular Suspe nsion 0.5 ML 14:31:55 CDT CPT-23045 Abx/Therapy Injection 13:28:47 FUND DEVELOPMENT MANAGER CPT-J2930 Solu Medrol 125 mg (Methyl Prednisolone Sodium Succinate) 12:00:47 FUND DEVELOPMENT MANAGER CPT-41493 Venipuncture Draw Fee 11:33:31 CDT CPT-74765 EKG Trac and Interp 11:21:09 CDT CPT-22258 Chest 2V Frontal and Lat 11:21:09 CDT 12/15 CPT-47644 Venipuncture Draw Fee 08:02:34 CDT CPT-07673 Chest 2V Frontal and Lat 05:47:59 CDT 06/05
--- OUTSIDE RECORDS SUMMARY | 2019-10-08 10:00 | XMS REPORT | Clinical Summary ---
Author Author Caitlin, Juliana Martinez Organization [facility] Address Unknown Phone Unavailable Allergies, Adverse [...] EXAMINATION OF DEFINED SUBPOPULATION V70.5 Act nael Mno[facility] examination of defined subpopulat ions [...] URI 465.9 Inactive Ridge Bess DO Ac nikolski upper respiratory infections of unspecified site Body Mass Index 35.0-35.9 Adult Refinement 2017 Ridge Bess DO Body Mass Index 35.0-35.9, adult BMI 34-34.9 Refinement Cherelle Torres RN Body Mass Index 35.0-35.9, adult BMI 35-35.9 Refinement David Marianneamisha RICEN Body Mass Index 35.0-35.9, adult BMI 34-34.9 Refinement May Vivar MD Body Mass Index 35.0-35.9, adult BMI 35-35.9 Refinement David Marianne TEXTILE CONSERVATOR Body Mass Index 35.0-35.9, adult BMI 33-33.9 Active David Marianne TEXTILE CONSERVATOR Body Mass Index 35.0-35.9, adult Upper respiratory [...] nonspecific skin eruption 782.1 Active David Marianne TEXTILE CONSERVATOR Rash and other nonspecific skin eruption Pharyngitis, acute / sore throat 462 Active 201 12/06/23 David Marianne TEXTILE CONSERVATOR Acute pharyngitis Shingles 053.9 Active David Marianne TEXTILE CONSERVATOR Herpes zoster without mention of complication Allergic [...] WALL PAIN, ACUTE ICD-786.52 Inactive Liv De L aRosa MD PhD PNEUMONIA ICD-486 Inactive Marcy De [...] bid spari ngly to rash TRIAMCINOLONE ACETONIDE 34713467060 No Longer Active Carlton Hu MD Active TYLENOL WITH CODEINE #3 300-30 MG ORAL TABLET ACETAMINOPHEN-CODEINE 45706302833 No Longer Active Carlton Hu MD Active TYLENOL WITH CODEINE #3 300-30 MG ORAL TABLET 1-2 po q6hr PRN Pa in ACETAMINOPHEN-CODEINE 84489650869 No Longer Active David Lopes AP RN Active ACYCLOVIR 800 MG ORAL TABLET 1 po 5 times daily x 7 days ACYCLOVIR 00683751958 No Longer Active Davidjerel Lopes TEXTILE CONSERVATOR Active TOPAMAX 100 MG ORAL TABLET 1 by mouth twice daily TOPIRAMATE 71523620783 Active Columba Parrish Active TRIAMCINOLONE ACETONIDE 0.1 % EXTERNAL OINTMENT Apply to affected areas TID PRN Rash/Itching for up 2 weeks TRIAMCINOLONE ACETON KAYLA 27760820628 No Longer Active David Lopes TEXTILE CONSERVATOR Active AMOXICILLIN 500 MG ORAL CAPSULE 1 cap by mouth twice daily 10/21 AMOXICILLIN 35723860032 No Longer Active David Marianne TEXTILE CONSERVATOR Active ELMIRON 100 MG ORAL CAPSULE 2 capsules in the morning and 1 capsule at night PENTOSAN POLYSULFATE SODIUM 34568209269 Active Cinthia cutler GUEST LAUNDRY ATTENDANT Active CYMBALTA 30 MG ORAL CAPSULE DELAYED RELEASE PARTICLES 1 cap by mouth daily for depression DULOXETINE HCL 18043800505 No Longer Active Carlton Hu MD Active CYMBALTA 60 MG ORAL CAPSULE DELAYED RELEASE PARTICLES 1 cap by mouth daily for mood and pain DULOXETINE HCL 51518295285 Active Carlton Hu MD Active TUSSIONEX PENNKINETIC ER 10-8 MG/5ML ORAL SUSPENSION E XTENDED RELEASE 5ml po q12hr PRN Cough HYDROCOD POLST-CHLORPHEN POLST 53665911205 Active Carlton Hu MD Active PREDNISONE 20 MG ORAL TABLET Take 2 tabs day 1 and 2 and 1 t ab days 3 and 4 PREDNISONE 83018420851 No Longer Active David Marianne TEXTILE CONSERVATOR Active DOXYCYCLINE HYCLATE 100 MG ORAL CAPSULE 1 cap by mouth twice latasha ly DOXYCYCLINE HYCLATE 65188476205 No Longer Active David Marianne TEXTILE CONSERVATOR Active TOPAMAX 100 MG ORAL TABLET Take 1 tablet po bid TOPIRAMATE 04904334674 No Longer Active David Marianne TEXTILE CONSERVATOR Active TUSSIONEX PENNKINETIC ER 10-8 MG/5ML ORAL SUSPENSION E XTENDED RELEASE 5ml po q12hr PRN Cough HYDROCOD POLST-CHLORPHEN POLST 5 8299199755 No Longer Active David Marianne TEXTILE CONSERVATOR Active AUGMENTIN 875-125 MG ORAL TABLET 1 po BID x 10 days 18/04/16 AMOXICILLIN-POT CLAVULANATE 61254251730 No Longer Active David Marianne TEXTILE CONSERVATOR Active PREDNISONE 50 MG ORAL TABLET Take 50 mg dialy for 6 day s 7 PREDNISONE 96337591382 No Longer Active David Marianne TEXTILE CONSERVATOR Active TUSSIONEX PENNKINETIC ER 10-8 MG/5ML ORAL SUSPENSION E XTENDED RELEASE 5ml po q12hr PRN Cough HYDROCOD POLST-CHLORPHEN POLST 5 2650438657 No Longer Active Cherelle Torres RN Active PREDNISONE 20 MG ORAL TABLET two tabs by mouth today, then one tab by mouth days two and three and four PREDNISONE 70801783327 No Lo nger Active Cherelle Torres RN Active AZITHROMYCIN 250 MG ORAL TABLET 2 po qd x 1 day, then 1 po q d x 4 days AZITHROMYCIN 54973097941 No Longer Active Ridge Bess DO Active PREDNISONE 20 MG ORAL TABLET 2 po qd x 5 days P REDNISONE 59012322400 No Longer Active Perez Mora MD Active PROAIR HFA 108 (90 BASE) MCG/ACT INHALATION AEROSOL SO LUTION 2 puffs four times a day as needed ALBUTEROL SULFATE 09263232770 No Long er Active Becky AGUILARA Active ASPIRIN 81 MG ORAL TABLET 1 po qd ASPIRIN 81215498658 Active Carlton Hu MD Active PREDNISONE 20 MG ORAL TABLET 1 tab twice daily for 3 d ay, then one daily for three days PREDNISONE 71727001441 No Longer Active Carlton Hu MD Active AUGMENTIN 875-125 MG ORAL TABLET 1 po BID x 10 days 20 16/03/22 AMOXICILLIN-POT CLAVULANATE 41602729994 No Longer Active Elise Garcia APRN Active TERBINAFINE HCL 250 MG ORAL TABLET 1 qDay for nail fungus 7 TERBINAFINE HCL 04001954798 No Longer Active Carlton Hu MD A ctive AMOXICILLIN 500 MG ORAL CAPSULE 1 cap by mouth three times a day AMOXICILLIN 75521669170 No Longer Active Carlton Hu MD Active ELMIRON 100 MG ORAL CAPSULE 2 tablets in the am and 1 tablet at hs PENTOSAN POLYSULFATE SODIUM 58348517221 No Longer Active Robert jade Hu MD Active MUCINEX D 60-600 MG ORAL TABLET EXTENDED RELEASE 12 HOUR 1 t ab po q am PSEUDOEPHEDRINE-GUAIFENESIN 02580382852 No Longer Act nael Carlton Hu MD Active MUCINEX DM MAXIMUM STRENGTH 60-1200 MG ORAL TABLET EXT ENDED RELEASE 12 HOUR 1 tab po q am DEXTROMETHORPHAN-GUAIFENESIN 54072218901 No Longer Active Carlton Hu MD Active TUSSIONEX PENNKINETIC ER 10-8 MG/5ML ORAL SUSPENSION E XTENDED RELEASE 5ml po q12hr PRN Cough HYDROCOD POLST-CHLORPHEN POLST 5 9511816318 No Longer Active Carlton Hu MD Active POTASSIUM CHLORIDE ER 20 MEQ ORAL TABLET EXTENDED RELE ASE Take 1 by mouth 4 times daily for 7 days POTASSIUM CHLORIDE 06806766531 No Longer Active Carlton Hu MD Active ZITHROMAX 250 MG ORAL TABLET 2 po today, then 1 po q days 2-5 20 14/09/04 AZITHROMYCIN 39954618146 No Longer Active Elise Garcia APRN Active TUSSIONEX PENNKINETIC ER 10-8 MG/5ML ORAL SUSPENSION E XTENDED RELEASE 5 ml twice a day as needed for cough HYDROCOD POLST-CHLORPH EN POLST 14707086349 No Longer Active Elise Garcia APRN Active MONTELUKAST SODIUM 10 MG ORAL TABLET 1 po daily for Allergy MONTELUKAST SODIUM 13456927218 Active Carlton Hu MD Ac tive TUSSIONEX PENNKINETIC ER 10-8 MG/5ML ORAL SUSPENSION E XTENDED RELEASE 5ml po q12hr PRN Cough HYDROCOD POLST-CHLORPHEN POLST 5 7030288581 No Longer Active Hugo Restrepo MD Active GABAPENTIN 100 MG ORAL CAPSULE 1 po BID for fibromyalgia GABAPENTIN 99717051666 Active ALFREDO Holly Active LYRICA 100 MG ORAL CAPSULE Take 1 tab po BID for fibromyalgia 20 11/08/21 PREGABALIN 80557954876 No Longer Active Elise Arell TEXTILE CONSERVATOR A ctive PREDNISONE 20 MG ORAL TABLET 2 tabs daily for 3 days, 1 tab daily for 3 days, 1/2 tab daily for 2 days PREDNISONE 83268717459 No Longer Active Jillina Frazell TEXTILE CONSERVATOR Active TUSSIONEX PENNKINETIC ER 10-8 MG/5ML ORAL SUSPENSION E XTENDED RELEASE 5 mL PO q 12 hrs PRN cough HYDROCOD POLST-CHLORPHEN POLST 914876 50770 No Longer Active Jillina Frazell TEXTILE CONSERVATOR Active FLUTICASONE PROPIONATE 50 MCG/ACT NASAL SUSPENSION 2 s prays each nostril daily until bottle is empty FLUTICASONE PROPIONATE 494825576 99 No Longer Active Jillina Frazell TEXTILE CONSERVATOR Active ASMANEX 60 METERED DOSES 220 MCG/INH INHALATION AEROSO L POWDER BREATH ACTIVATED 1 puff bid with rinse after MOMETASONE FUROATE 6617721 4102 No Longer Active Jillina Frazell TEXTILE CONSERVATOR Active ZITHROMAX Z-REYNA 250 MG ORAL TABLET 2 today, then 1 daily for 4 d ays AZITHROMYCIN 16339210865 No Longer Active Elise Arell TEXTILE CONSERVATOR Active TUSSIONEX PENNKINETIC ER 10-8 MG/5ML ORAL SUSPENSION E XTENDED RELEASE 5ml po q12hr PRN Cough HYDROCOD POLST-CHLORPHEN POLST 5 3510911913 No Longer Active Elise Arell TEXTILE CONSERVATOR Active PREDNISONE 20 MG ORAL TABLET 2 tabs daily for 3 days, 1 tab daily for 3 days, 1/2 tab daily for 2 days PREDNISONE 76839936560 No Longer Active Jillina Frazell TEXTILE CONSERVATOR Active AMOXICILLIN 500 MG ORAL CAPSULE 2 po BID x 10 days 201 09/29/08 AMOXICILLIN 18779028876 No Longer Active Jillina Frazell TEXTILE CONSERVATOR Act nael SINGULAIR 10 MG ORAL TABLET 1 po qday for allergies 20 14/01/12 MONTELUKAST SODIUM 36556000430 No Longer Active Carlton Hu MD Active LEVAQUIN 500 MG ORAL TABLET 1 tablet by mouth daily 13/09/24 LEVOFLOXACIN 99638043498 No Longer Active Carlton Hu MD Acti ve FLUTICASONE PROPIONATE 50 MCG/ACT NASAL SUSPENSION 2 s prays each nostril daily for 2 weeks, then 1 spray each nostril daily. FLUTICASONE PROPIONATE 33375237137 Active Carlton Hu MD Active ZITHROMAX 250 MG ORAL TABLET 2 po today, then 1 po q days 2-5 20 13/08/10 AZITHROMYCIN 61947308250 No Longer Active Elise Garcia APRN Active XANAX 0.5 MG ORAL TABLET one tablet by mouth daily prn anxiety 2015 ALPRAZOLAM 53802375551 Active ALFREDO Holly Active CEFDINIR 300 MG ORAL CAPSULE 1 po BID x 10 days CEFDINIR 13755713929 No Longer Active Carlton Hu MD Active ZOCOR 40 MG ORAL TABLET 1 tab by mouth daily SI MVASTATIN 60801035356 No Longer Active Carlton Hu MD Active CYCLOBENZAPRINE HCL 10 MG ORAL TABLET 1 tablet by mouth BID prn had pain CYCLOBENZAPRINE HCL 86040948623 No Longer Active Jayden Hu MD Active LEVOFLOXACIN 500 MG ORAL TABLET 1 tab PO daily x 10 days LEVOFLOXACIN 29235011017 No Longer Active Carlton Hu MD Acti ve PREDNISONE 20 MG ORAL TABLET 3 tab PO qd x 2d, 2 tab P O qd x 2d, 1 tab PO qd x 2d, 1/2 tab PO qd x 2d PREDNISONE 39702262966 No Lo nger Active Carlton Hu MD Active FLUTICASONE PROPIONATE 50 MCG/ACT NASAL SUSPENSION 1 t o 2 sprays each nostril daily FLUTICASONE PROPIONATE 40748295119 No Longer Ac tiisabel HERNANDEZ Active CHERATUSSIN AC 100-10 MG/5ML ORAL SYRUP 1 tsp by mouth every 4 hours as needed for cough GUAIFENESIN-CODEINE 41819695312 No Longe r Active Blaine HERNANDEZ Active PROMETHAZINE-CODEINE 6.25-10 MG/5ML ORAL SYRUP 1 tsp b y mouth every 6 hours if needed for cough PROMETHAZINE-CODEINE 27552185230 No Longer Active Blaine HERNANDEZ Active CHERATUSSIN AC 100-10 MG/5ML ORAL SYRUP 1 tsp by mouth every 4 hours as needed for cough GUAIFENESIN-CODEINE 43479014632 No Longe r Active Blaine HERNANDEZ Active ZITHROMAX Z-REYNA 250 MG ORAL TABLET 2 today, then 1 daily for 4 d ays AZITHROMYCIN 06650769391 No Longer Active Columba Raida Act nael ZITHROMAX 250 MG ORAL TABLET 2 po today, then 1 po q days 2-5 20 14/03/21 AZITHROMYCIN 73059846455 No Longer Active Carlton Hu MD Active ZITHROMAX Z-REYNA 250 MG ORAL TABLET 2 today, then 1 daily for 4 d ays AZITHROMYCIN 73956506511 No Longer Active Columba Raida Act nael AUGMENTIN 875-125 MG ORAL TABLET 1 po BID x 10 days 13/01/20 AMOXICILLIN-POT CLAVULANATE 46552830647 No Longer Active Diya De Guzman APRN Active ZITHROMAX 250 MG ORAL TABLET 2 po today, then 1 po q days 2-5 20 12/08/14 AZITHROMYCIN 39058154994 No Longer Active Carlton Hu MD Active TRAMADOL HCL 50 MG ORAL TABLET 1 po tid with ES Tylenol TRAMADOL HCL 86891833893 Active ALFREDO Holly Active PREMARIN 0.625 MG ORAL TABLET TAKE 1 TAB BY MOUTH DAILY ESTROGENS CONJUGATED 20021516637 No Longer Active Ridge ROSAS ctive CYMBALTA 30 MG ORAL CAPSULE DELAYED RELEASE PARTICLES 1 cap by mouth daily DULOXETINE HCL 05557920680 No Longer Active Ridge tam DO Active AMOXICILLIN 500 MG ORAL CAPSULE 1 tab by mouth 3 times daily x 10 days AMOXICILLIN 23756084318 No Longer Active Carlton bustamante MD Active AMOXICILLIN 500 MG ORAL CAPSULE 1 tab by mouth 3 times daily x 10 days AMOXICILLIN 20282613086 No Longer Active Carlton bustamante MD Active PROMETHAZINE-CODEINE 6.25-10 MG/5ML ORAL SYRUP 1 tsp b y mouth every 8 hours prn cough PROMETHAZINE-CODEINE 67252470037 No Longer Acti ve Carlton Hu MD Active MEDROL 4 MG ORAL TABLET THERAPY PACK 6 pills x 1 day, then 5 pills x 1 day then 4 pills x 1 day, then 3 pills x 1 day, then 2 pills x 1 day, then 1 pill x 1 day, then stop METHYLPREDNISOLONE 01107388127 No Long er Active Perez Mora MD Active AZITHROMYCIN 250 MG ORAL TABLET 2 po qd x 1 day, then 1 po q d x 4 days AZITHROMYCIN 01470640904 No Longer Active Perez Ambriz MD Active SYMBICORT 160-4.5 MCG/ACT INHALATION AEROSOL 2 puffs bid wit h rinse after BUDESONIDE-FORMOTEROL FUMARATE 90914379154 N o Longer Active Perez Mora MD Active LYRICA 75 MG ORAL CAPSULE TAKE 1 CAPSULE BY MOUTH TWICE DAILY PREGABALIN 32363831841 No Longer Active Carlton Hu MD Acti ve TOPAMAX 25 MG ORAL TABLET 1 qHS x 1 week, then 1 BID x 1 week, then 1 qAM and 2 qHS x 1 week, then 2 BID (migraine prevention) T OPIRAMATE 43611801833 No Longer Active Jerica FUENTES Active TOPAMAX 50 MG ORAL TABLET take 1 tab po BID for migraines. 07/02 TOPIRAMATE 35089598324 No Longer Active Jerica FUENTES Active TRIAMCINOLONE ACETONIDE 0.1 % EXTERNAL CREAM apply three roger es daily prn rash TRIAMCINOLONE ACETONIDE 90189779923 No Longer Active Carlton Hu MD Active PAXIL 40 MG ORAL TABLET take 1 tab po qday for depression 0 PAROXETINE HCL 01993599715 Active Carlton Hu MD Active CHERATUSSIN AC 100-10 MG/5ML ORAL SYRUP 5ml po q6hr PRN Cough 20 13/04/14 GUAIFENESIN-CODEINE 12326204268 No Longer Active Carlton Hu MD Active MEDROL 4 MG ORAL TABLET THERAPY PACK 6 tabs on day 1, 5 tabs on day 2, 4 tabs on day 3, 3 tabs on day 4, 2 tabs on day 5, 1 tab on day 6 2013 METHYLPREDNISOLONE 66552693357 No Longer Active Perez Mora MD Active AZITHROMYCIN 250 MG ORAL TABLET 2 po qd x 1 day, then 1 po q d x 4 days AZITHROMYCIN 29616960645 No Longer Active Perez Ambriz MD Active PROPRANOLOL HCL 60 MG ORAL TABLET 1 PO Q D PROPRANOLOL HCL 16438258978 No Longer Active Perez Mora MD Activ e CHERATUSSIN AC 100-10 MG/5ML ORAL SYRUP take one tsp po Q 6h ours prn cough GUAIFENESIN-CODEINE 68974093843 No Longer Active Zia Mora MD Active AUGMENTIN 875-125 MG ORAL TABLET 1 tab by mouth twice daily with food AMOXICILLIN-POT CLAVULANATE 84097685005 No Longer Act nael Perez Mora MD Active CHERATUSSIN AC 100-10 MG/5ML ORAL SYRUP 1 tsp by mouth every 4 hours as needed for cough GUAIFENESIN-CODEINE 39781712085 No Longe r Active Hugo Restrepo MD Active ACETAMINOPHEN-CODEINE #3 300-30 MG ORAL TABLET 1 PO Q 4-6 HRS [place] PA[place] ACETAMINOPHEN-CODEINE 21006020948 No Longer Active Hugo Restrepo MD Active LEVAQUIN 500 MG ORAL TABLET take one po QD LEVO FLOXACIN 07785716975 No Longer Active Griffin HERNANDEZ Active PREDNISONE 20 MG ORAL TABLET Take 3 tabs daily for 3 d ays, 2 tabs daily for 3 days, 1 tab daily for 3 days, 1/2 tab daily for 3 days 11/07 PREDNISONE 90563043718 No Longer Active Carlton Hu MD Acti ve AVELOX 400 MG ORAL TABLET 1 tab by mouth daily MOXIFLOXACIN HCL 34108559612 No Longer Active Carlton Hu MD Active CHERATUSSIN AC 100-10 MG/5ML ORAL SYRUP 1 tsp by mouth every 4 hours as needed for cough GUAIFENESIN-CODEINE 32024295571 No Longe r Active Hugo Restrepo MD Active AVELOX 400 MG ORAL TABLET 1 tab by mouth daily MOXIFLOXACIN HCL 01238624740 No Longer Active Marcy De La Rosa MD PhD Active TERBINAFINE HCL 250 MG ORAL TABLET 1 qDay T ERBINAFINE HCL 47590400483 No Longer Active Marcy De La Rosa MD PhD Active CHERATUSSIN AC 100-10 MG/5ML ORAL SYRUP 1 tsp by mouth every 4 hours as needed for cough GUAIFENESIN-CODEINE 12773195459 No Longe r Active Marcy De La Rosa MD PhD Active AVELOX 400 MG ORAL TABLET 1 tab by mouth daily MOXIFLOXACIN HCL 57270248209 No Longer Active Marcy De La Rosa MD PhD Active HYDROCODONE-ACETAMINOPHEN 5-325 MG ORAL TABLET 1 po q 6hr PRN co ugh HYDROCODONE-ACETAMINOPHEN 01747935567 No Longer Active Marcy De La Rosa MD PhD Active PREDNISONE 20 MG ORAL TABLET 2 tabs daily for 3 days, 1 tab daily for 3 days, 1/2 tab daily for 2 days PREDNISONE 71805945667 No Longer Active Carlton Hu MD Active CEFDINIR 300 MG ORAL CAPSULE by mouth twice a day 2011 CEFDINIR 58197414323 No Longer Active Carlton Hu MD Acti ve HYDROCHLOROTHIAZIDE 25 MG ORAL TABLET 1 TAB PO DAILY HYDROCHLOROTHIAZIDE 63458430156 Active Carlton Hu MD A ctive ACETAMINOPHEN-CODEINE #3 300-30 MG ORAL TABLET 1 tablet po q 4-6 hrs prn pain ACETAMINOPHEN-CODEINE 54967611794 No Longer Active Ridge Bess DO Active ZITHROMAX 250 MG ORAL TABLET 2 po today, then 1 po q days 2-5 20 03/07/07 AZITHROMYCIN 31580474137 No Longer Active Carlton Hu MD Active CHERATUSSIN AC 100-10 MG/5ML ORAL SYRUP take 1 tsp po q4-6 h ours prn cough GUAIFENESIN-CODEINE 92593298080 No Longer Active Jayden Hu MD Active ACETAMINOPHEN-CODEINE #3 300-30 MG ORAL TABLET 1 PO Q 4-6 HR PRN PAIN ACETAMINOPHEN-CODEINE 33918314250 No Longer Active Da raimundo Hu MD Active LORTAB 7.5-500 MG/15ML ORAL ELIXIR 7.5 ml po q 4 hour prn cough HYDROCODONE-ACETAMINOPHEN 41869711920 No Longer Active Carlton Hu MD Active PREDNISONE 20 MG ORAL TABLET 1 po bid 3 days, then 1 po q day 3 days PREDNISONE 95729841637 No Longer Active Carlton Hu MD Active CEFDINIR 300 MG ORAL CAPSULE by mouth twice a day 2011 CEFDINIR 92968715441 No Longer Active Carlton Hu MD Acti ve CEFDINIR 300 MG ORAL CAPSULE by mouth twice a day 2010 CEFDINIR 08969766447 No Longer Active Carlton Hu MD Acti ve CEFDINIR 300 MG ORAL CAPSULE by mouth twice a day 2010 CEFDINIR 73983511646 No Longer Active Carlton Hu MD Acti ve TESSALON PERLES 100 MG ORAL CAPSULE 1 tablet by mouth 3 times daily as needed for cough BENZONATATE 88722401409 No Longer Active Carlton Hu MD Active CEFDINIR 300 MG ORAL CAPSULE by mouth twice a day 2010 CEFDINIR 97803055979 No Longer Active Carlton Hu MD Acti ve ZITHROMAX Z-REYNA 250 MG ORAL TABLET 2 today, then 1 daily for 4 d ays AZITHROMYCIN 43925515969 No Longer Active Hugo Restrepo MD Active TESSALON PERLES 100 MG ORAL CAPSULE 1 tablet by mouth 3 times daily as needed for cough TESSALON PERLES 100 MG ORAL CAPSULE 31612 7 BENZONATATE Inactive PREDNISONE 20 MG ORAL TABLET 1 po bid 3 days, then 1 po q day 3 days PREDNISONE 20 MG ORAL TABLET 378764 PREDNISONE [place] ctive LORTAB 7.5-500 MG/15ML ORAL ELIXIR 7.5 ml po q 4 hour prn cough LORTAB 7.5-500 MG/15ML ORAL ELIXIR HYDROCODONE-A CETAMINOPHEN Inactive ACETAMINOPHEN-CODEINE #3 300-30 MG ORAL TABLET 1 PO Q 4-6 HR PRN PAIN ACETAMINOPHEN-CODEINE #3 300-30 MG ORAL TABLET 9 88791 ACETAMINOPHEN-CODEINE Inactive CHERATUSSIN AC 100-10 MG/5ML ORAL SYRUP take 1 tsp po q4-6 h ours prn cough CHERATUSSIN AC 100-10 MG/5ML ORAL SYRUP 967800 GUAIFENESIN-CODEINE Inactive ACETAMINOPHEN-CODEINE #3 300-30 MG ORAL TABLET 1 tablet po q 4-6 hrs prn pain ACETAMINOPHEN-CODEINE #3 300-30 MG ORAL TABLET 716540 ACETAMINOPHEN-CODEINE Inactive HYDROCODONE-ACETAMINOPHEN 5-325 MG ORAL TABLET 1 po q 6hr PRN co ugh HYDROCODONE-ACETAMINOPHEN 5-325 MG ORAL TABLET 208606 HYDROCODONE-ACETAMINOPHEN Inactive AVELOX 400 MG ORAL TABLET 1 tab by mouth daily AVELOX 400 MG ORAL TABLET MOXIFLOXACIN HCL Inactive CHERATUSSIN AC 100-10 MG/5ML ORAL SYRUP 1 tsp by mouth every 4 hours as needed for cough CHERATUSSIN AC 100-10 MG/5ML ORAL SYRUP 9 38690 GUAIFENESIN-CODEINE Inactive TERBINAFINE HCL 250 MG ORAL TABLET 1 qDay 07/08 TERBINAFINE HCL 250 MG ORAL TABLET 582909 TERBINAFINE HCL Inactive CHERATUSSIN AC 100-10 MG/5ML ORAL SYRUP 1 tsp by mouth every 4 hours as needed for cough CHERATUSSIN AC 100-10 MG/5ML ORAL SYRUP 9 07206 GUAIFENESIN-CODEINE Inactive ACETAMINOPHEN-CODEINE #3 300-30 MG ORAL TABLET 1 PO Q 4-6 HRS [place] PAIN ACETAMINOPHEN-CODEINE #3 300-30 MG ORAL TABLET 350430 ACETAMINOPHEN-CODEINE Inactive CHERATUSSIN AC 100-10 MG/5ML ORAL SYRUP 1 tsp by mouth every 4 hours as needed for cough CHERATUSSIN AC 100-10 MG/5ML ORAL SYRUP 9 09784 GUAIFENESIN-CODEINE Inactive AUGMENTIN 875-125 MG ORAL TABLET 1 tab by mouth twice daily with food AUGMENTIN 875-125 MG ORAL TABLET AMOXICIL MADELINE-POT CLAVULANATE Inactive CHERATUSSIN AC 100-10 MG/5ML ORAL SYRUP take one tsp po Q 6h ours prn cough CHERATUSSIN AC 100-10 MG/5ML ORAL SYRUP 704681 GUAIFENESIN-CODEINE Inactive PROPRANOLOL HCL 60 MG ORAL TABLET 1 PO Q D PROPRANOLOL HCL 60 MG ORAL TABLET 424816 PROPRANOLOL HCL Inactive TOPAMAX 50 MG ORAL TABLET take 1 tab po BID for migraines. 07/02 TOPAMAX 50 MG ORAL TABLET 013882 TOPIRAMATE Inacti ve TOPAMAX 25 MG ORAL TABLET 1 qHS x 1 week, then 1 BID x 1 week, then 1 qAM and 2 qHS x 1 week, then 2 BID (migraine prevention) TOPAMAX 25 MG ORAL TABLET 523500 TOPIRAMATE Inactive LYRICA 75 MG ORAL CAPSULE TAKE 1 CAPSULE BY MOUTH TWICE DAILY LYRICA 75 MG ORAL CAPSULE 813896 PREGABALIN Inactive SYMBICORT 160-4.5 MCG/ACT INHALATION AEROSOL 2 puffs bid wit h rinse after SYMBICORT 160-4.5 MCG/ACT INHALATION AEROSOL BUDESONIDE- FORMOTEROL FUMARATE Inactive PROMETHAZINE-CODEINE 6.25-10 MG/5ML ORAL SYRUP 1 tsp b y mouth every 8 hours prn cough PROMETHAZINE-CODEINE 6.25-10 MG/ 5ML ORAL SYRUP 727971 PROMETHAZINE-CODEINE Inactive CYMBALTA 30 MG ORAL CAPSULE DELAYED RELEASE PARTICLES 1 cap by mouth daily CYMBALTA 30 MG ORAL CAPSULE DELAYED RELE ASE PARTICLES 615407 DULOXETINE HCL Inactive PREMARIN 0.625 MG ORAL TABLET TAKE 1 TAB BY MOUTH DAILY PREMARIN 0.625 MG ORAL TABLET ESTROGENS CONJUGATED Inactive CHERATUSSIN AC 100-10 MG/5ML ORAL SYRUP 1 tsp by mouth every 4 hours as needed for cough CHERATUSSIN AC 100-10 MG/5ML ORAL SYRUP 9 32191 GUAIFENESIN-CODEINE Inactive PROMETHAZINE-CODEINE 6.25-10 MG/5ML ORAL SYRUP 1 tsp b y mouth every 6 hours if needed for cough PROMETHAZINE-CODEINE 6.25-10 MG/5ML ORAL SYRUP 831538 PROMETHAZINE-CODEINE Inactive CHERATUSSIN AC 100-10 MG/5ML ORAL SYRUP 1 tsp by mouth every 4 hours as needed for cough CHERATUSSIN AC 100-10 MG/5ML ORAL SYRUP 9 30652 GUAIFENESIN-CODEINE Inactive FLUTICASONE PROPIONATE 50 MCG/ACT NASAL SUSPENSION 1 t o 2 sprays each nostril daily FLUTICASONE PROPIONATE 50 MCG/AC T NASAL SUSPENSION 8383146 FLUTICASONE PROPIONATE Inactive PREDNISONE 20 MG ORAL TABLET 3 tab PO qd x 2d, 2 tab P O qd x 2d, 1 tab PO qd x 2d, 1/2 tab PO qd x 2d PREDNISONE 20 MG ORAL TAB LET 266321 PREDNISONE Inactive LEVOFLOXACIN 500 MG ORAL TABLET 1 tab PO daily x 10 days LEVOFLOXACIN 500 MG ORAL TABLET 901609 LEVOFLOXACIN Inactive CYCLOBENZAPRINE HCL 10 MG ORAL TABLET 1 tablet by mouth BID prn had pain CYCLOBENZAPRINE HCL 10 MG ORAL TABLET 862308 CYCLOBENZAPRINE HCL Inactive ZOCOR 40 MG ORAL TABLET 1 tab by mouth daily 4 ZOCOR 40 MG ORAL TABLET 619432 SIMVASTATIN Inactive TUSSIONEX PENNKINETIC ER 10-8 MG/5ML [...] FLUTICASONE PROPIO EFE 50 MCG/ACT NASAL SUSPENSION 4438786 FLUTICASONE PROPIONATE Inactive TUSSIONEX PENNKINETIC ER 10-8 MG/5ML ORAL SUSPENSION E XTENDED RELEASE 5 mL PO q 12 hrs PRN cough TUSSIONEX PENNKINETI C ER 10-8 MG/5ML ORAL SUSPENSION EXTENDED RELEASE HYDROCOD POLST-CHLORPHEN POLST I nactive LYRICA 100 MG ORAL CAPSULE Take 1 tab po BID for fibromyalgia 20 11/08/21 LYRICA 100 MG ORAL CAPSULE 182999 PREGABALIN Inact nael TUSSIONEX PENNKINETIC ER 10-8 [...] three days PREDNISONE 20 MG ORAL TABLET 809813 PREDNIS ONE Inactive PROAIR HFA 108 (90 BASE) MCG/ACT INHALATION AEROSOL SO LUTION 2 puffs four times a day as needed PROAIR HFA 108 (90 B ASE) MCG/ACT INHALATION AEROSOL SOLUTION ALBUTEROL SULFATE Inactive PREDNISONE 20 MG ORAL TABLET two tabs by mouth today, then one tab by mouth days two and three and four PREDNISONE 20 MG ORAL TAB LET 366282 PREDNISONE Inactive TUSSIONEX PENNKINETIC ER 10-8 MG/5ML [...] bid 04/20 TOPAMAX 100 MG ORAL TABLET 519143 TOPIRAMATE Inactive CYMBALTA 30 MG ORAL CAPSULE DELAYED RELEASE PARTICLES 1 cap by mouth daily for depression CYMBALTA 30 MG ORAL CAPSULE DELAYED RELEASE PARTICLES 945639 DULOXETINE HCL Inactive TYLENOL WITH CODEINE #3 300-30 MG ORAL TABLET 1-2 po q6hr PRN Pa in TYLENOL WITH CODEINE #3 300-30 MG ORAL TABLET 193128 ACETAMINOPHEN-CODEINE Inactive TYLENOL WITH CODEINE #3 300-30 MG ORAL TABLET TYLENOL WITH CODEINE #3 300-30 MG ORAL TABLET 902799 ACETAMINOPHEN-CODEINE Inactive TRIAMCINOLONE ACETONIDE 0.1 % EXTERNAL CREAM apply bid spari ngly to rash TRIAMCINOLONE ACETONIDE 0.1 % EXTERNAL CREAM 101 4314 TRIAMCINOLONE ACETONIDE Inactive ZITHROMAX Z-REYNA 250 MG ORAL TABLET 2 today, then 1 daily for 4 d ays ZITHROMAX Z-REYNA 250 MG ORAL TABLET 115392 AZITHROMYCIN Inactive CEFDINIR 300 MG ORAL CAPSULE [...] 2-5 03/07/07 ZITHROMAX 250 MG ORAL TABLET 021727 AZITHROMYCIN [place] [facility] CEFDINIR 300 MG ORAL CAPSULE by mouth twice a day 2011 CEFDINIR 300 MG ORAL CAPSULE 20020704 CEFDINIR Inactive PREDNISONE 20 MG ORAL TABLET 2 tabs daily for 3 days, 1 tab daily for 3 days, 1/2 tab daily for 2 days PREDNISONE 20 MG ORAL T ABLET 295463 PREDNISONE Inactive AVELOX 400 MG ORAL TABLET [...] days 11/07 PREDNISONE 20 MG ORAL TABLET 421258 PREDNISONE Inactive LEVAQUIN 500 MG ORAL TABLET take one po QD LEVAQUIN 500 MG ORAL TABLET 972757 LEVOFLOXACIN Inactive AZITHROMYCIN 250 MG ORAL TABLET 2 po qd x 1 day, then 1 po q d x 4 days AZITHROMYCIN 250 MG ORAL TABLET 393581 AZITHROMY GIOVANNI Inactive MEDROL 4 MG ORAL TABLET THERAPY PACK 6 tabs on day 1, 5 tabs on day 2, 4 tabs on day 3, 3 tabs on day 4, 2 tabs on day 5, 1 tab on day 6 2013 MEDROL 4 MG ORAL TABLET THERAPY PACK 590389 METHYLPREDNISOLONE [place] [facility] CHERATUSSIN AC 100-10 MG/5ML ORAL SYRUP 5ml po q6hr PRN Cough 20 13/04/14 CHERATUSSIN AC 100-10 MG/5ML ORAL SYRUP 107327 GUAIFENE SIN-CODEINE Inactive TRIAMCINOLONE ACETONIDE 0.1 % EXTERNAL CREAM apply three roger es daily prn rash TRIAMCINOLONE ACETONIDE 0.1 % EXTERNAL CREAM 101 4314 TRIAMCINOLONE ACETONIDE Inactive AZITHROMYCIN 250 MG ORAL TABLET 2 po qd x 1 day, then 1 po q d x 4 days AZITHROMYCIN 250 MG ORAL TABLET 386316 AZITHROMY GIOVANNI Inactive MEDROL 4 MG ORAL TABLET THERAPY PACK 6 pills x 1 day, then 5 pills x 1 day then 4 pills x 1 day, then 3 pills x 1 day, then 2 pills x 1 day, then 1 pill x 1 day, then stop MEDROL 4 MG ORAL TABLET THERAPY PACK 170940 METHYLPREDNISOLONE Inactive AMOXICILLIN 500 MG ORAL CAPSULE 1 tab by mouth 3 times daily x 10 days AMOXICILLIN 500 MG ORAL CAPSULE 904684 AMOXICILL IN Inactive AMOXICILLIN 500 MG ORAL CAPSULE 1 tab by mouth 3 times daily x 10 days AMOXICILLIN 500 MG ORAL CAPSULE 617965 AMOXICILL IN Inactive ZITHROMAX 250 MG ORAL TABLET 2 po today, then 1 po q days 2-5 20 12/08/14 ZITHROMAX 250 MG ORAL TABLET 280514 AZITHROMYCIN [place] [facility] AUGMENTIN 875-125 MG ORAL TABLET 1 po BID x 10 days 20 13/01/20 AUGMENTIN 875-125 MG ORAL TABLET AMOXICILLIN-POT CLAVULANATE Inactive ZITHROMAX Z-REYNA 250 MG ORAL TABLET 2 today, then 1 daily for 4 d ays ZITHROMAX Z-REYNA 250 MG ORAL TABLET 128990 AZITHROMYCIN Inactive ZITHROMAX 250 MG ORAL TABLET 2 po today, then 1 po q days 2-5 20 14/03/21 ZITHROMAX 250 MG ORAL TABLET 605819 AZITHROMYCIN [place] [facility] ZITHROMAX Z-REYNA 250 MG ORAL TABLET 2 today, then 1 daily for 4 d ays ZITHROMAX Z-REYNA 250 MG ORAL TABLET 368679 AZITHROMYCIN Inactive CEFDINIR 300 MG ORAL CAPSULE 1 po BID x 10 days 06/21 CEFDINIR 300 MG ORAL CAPSULE 20020704 CEFDINIR Inactive ZITHROMAX 250 MG ORAL TABLET 2 po today, then 1 po q days 2-5 20 13/08/10 ZITHROMAX 250 MG ORAL TABLET 140498 AZITHROMYCIN [place] [facility] LEVAQUIN 500 MG ORAL TABLET 1 tablet by mouth daily 13/09/24 LEVAQUIN 500 MG ORAL TABLET 19971102 LEVOFLOXACIN Inactive SINGULAIR 10 MG ORAL TABLET 1 po qday for allergies 20 14/01/12 SINGULAIR 10 MG ORAL TABLET 20010504 MONTELUKAST SODIUM Inactive AMOXICILLIN 500 MG ORAL CAPSULE 2 po BID x 10 days 201 09/29/08 AMOXICILLIN 500 MG ORAL CAPSULE 759420 AMOXICILLIN Inactive PREDNISONE 20 MG ORAL TABLET 2 tabs daily for 3 days, 1 tab daily for 3 days, 1/2 tab daily for 2 days PREDNISONE 20 MG ORAL T ABLET 258091 PREDNISONE Inactive ZITHROMAX Z-REYNA 250 MG ORAL TABLET 2 today, then 1 daily for 4 d ays ZITHROMAX Z-REYNA 250 MG ORAL TABLET 635681 AZITHROMYCIN Inactive PREDNISONE 20 MG ORAL TABLET 2 tabs daily for 3 days, 1 tab daily for 3 days, 1/2 tab daily for 2 days PREDNISONE 20 MG ORAL T ABLET 126735 PREDNISONE Inactive ZITHROMAX 250 MG ORAL TABLET 2 po today, then 1 po q days 2-5 20 14/09/04 ZITHROMAX 250 MG ORAL TABLET 407010 AZITHROMYCIN [place] [facility] AMOXICILLIN 500 MG ORAL CAPSULE 1 cap by mouth three times a day AMOXICILLIN 500 MG ORAL CAPSULE 276216 AMOXICILLIN Inactive TERBINAFINE HCL 250 MG ORAL TABLET 1 qDay for nail fungus 7 TERBINAFINE HCL 250 MG ORAL TABLET 559281 TERBINAFINE HCL Inact nael AUGMENTIN 875-125 MG ORAL TABLET 1 po BID x 10 days 16/03/22 AUGMENTIN 875-125 MG ORAL TABLET AMOXICILLIN-POT CLAVULANATE Inactive PREDNISONE 20 MG ORAL TABLET 2 po qd x 5 days PREDNISONE 20 MG ORAL TABLET 803983 PREDNISONE Inactive AZITHROMYCIN 250 MG ORAL TABLET 2 po qd x 1 day, then 1 po q d x 4 days AZITHROMYCIN 250 MG ORAL TABLET 478362 AZITHROMY GIOVANNI Inactive PREDNISONE 50 MG ORAL TABLET Take 50 mg dialy for 6 day s 7 PREDNISONE 50 MG ORAL TABLET 154788 PREDNISONE Inactive AUGMENTIN 875-125 MG ORAL TABLET 1 po BID x 10 days 18/04/16 AUGMENTIN 875-125 MG ORAL TABLET AMOXICILLIN-POT CLAVULANATE Inactive DOXYCYCLINE HYCLATE 100 MG ORAL CAPSULE 1 cap by mouth twice latasha ly DOXYCYCLINE HYCLATE 100 MG ORAL CAPSULE 2200538 DOXYCYCL INE HYCLATE Inactive PREDNISONE 20 MG ORAL TABLET Take 2 tabs day 1 and 2 and 1 t ab days 3 and 4 PREDNISONE 20 MG ORAL TABLET 678473 PREDNISONE Inactive AMOXICILLIN 500 MG ORAL CAPSULE 1 cap by mouth twice daily 10/21 AMOXICILLIN 500 MG ORAL CAPSULE 608027 AMOXICILLIN Inactive TRIAMCINOLONE ACETONIDE 0.1 % EXTERNAL OINTMENT Apply to affected areas TID PRN Rash/Itching for up 2 weeks TRIAMCINOLON E ACETONIDE 0.1 % EXTERNAL OINTMENT 7078406 TRIAMCINOLONE ACETONIDE Inactive ACYCLOVIR 800 MG ORAL TABLET 1 po 5 times daily x 7 days ACYCLOVIR 800 MG ORAL TABLET 985848 ACYCLOVIR Inactive Vital Signs Date Name Value [...] - Chem istry sodium, serum 139 mmol/L 165-164 5842/10/12 potassium, serum 3.8 mmol/L 3.5-5.2 chloride, serum [...] negative Encounters Code Encounter Date Provider Facility CPT-[id number] Vst-Est Level IV 09:06:31 C ESAU Hu MD [facility] CPT-70077 Level 3 Est. Patient 14:16:41 CDT David Tin dle [facility] CPT-81299 Level 3 Est. Patient 13:57:55 CDT David Tin dle [facility] CPT-65327 Level 3 Est. Patient 16:08:07 CDT David Tin dle [facility] CPT-54591 Level 3 Est. Patient 16:53:54 CDT May haas MD [facility]-72229 [id number] Vst-Est Level IV 08:41:[address] Carlton Hu MD [facility] CPT-22479 Level 3 Est. Patient 09:46:49 ELDERLY SITTER David Tin dle [facility]-19176 [id number] Vst-Est Level III 11:12:16 CDT Yanet Bess DO [facility] CPT-61119 Level 3 Est. Patient 11:34:49 ELDERLY SITTER Perez Mora MD [facility] CPT-59745 Level 4 Est. Patient 09:51:32 ELDERLY SITTER Carlton rich MD [facility] CPT-10633 Level 3 Est. Patient 10:26:00 ELDERLY SITTER Elise stephenson [facility] CPT-14241 Level 3 Est. Patient 13:35:41 ELDERLY SITTER Carlton rich MD [facility] CPT-19180 Level 3 Est. Patient 10:03:52 ELDERLY SITTER Carlton rich MD [facility] CPT-92841 Level 3 Est. Patient 12:17:50 CDT Hugo Restrepo MD [facility]-48497 Level 3 Est. Patient 13:42:38 CDT Elise Are [facility] CPT-66331 Level 3 Est. Patient 13:23:51 CDT Diya Mariana cobian [facility] CPT-34017 Level 3 Est. Patient 14:22:19 ELDERLY SITTER Diya cobian [facility] CPT-60222 Level 3 Est. Patient 10:11:46 CDT Carlton rich MD [facility] CPT-61808 Level 3 Est. Patient 17:29:43 CDT Elise Are [facility] CPT-87641 Level 3 Est. Patient 11:58:06 CDT Elise Are [facility] CPT-43740 Level 4 Est. Patient 14:36:51 CDT Carlton rich MD [facility] CPT-69228 Level 3 Est. Patient 18:16:00 ELDERLY SITTER Blaine HERNANDEZ [facility] CPT-23413 Level 3 Est. Patient 09:45:49 ELDERLY SITTER Carlton rich MD [facility] CPT-48796 Level 3 Est. Patient 13:19:20 CDT Carlton rich MD [facility] CPT-86420 Level 3 Est. Patient 13:06:43 CDT Ridge tam DO [facility] CPT-82764 Level 3 Est. Patient 10:03:07 CDT Perez Mora MD [facility] CPT-34760 Level 3 Est. Patient 19:50:35 ELDERLY SITTER Carlton rich MD [facility] CPT-41147 Level 4 Est. Patient 18:05:01 ELDERLY SITTER Carlton rich MD [facility] CPT-87195 Level 3 Est. Patient 10:45:55 ELDERLY SITTER Hugo Restrepo MD [facility] CPT-04186 Level 3 Est. Patient 14:12:49 CDT Griffin HERNANDEZ [facility] CPT-10944 Level 3 Est. Patient 17:37:24 CDT Carlton rich MD [facility] CPT-10477 Level 3 Est. Patient 16:51:54 CDT Carlton rich MD [facility] CPT-03273 Level 3 Est. Patient 12:18:11 CDT Hugo Restrepo MD [facility] CPT-96780 Level 3 Est. Patient 11:30:25 CDT Marcy crisostomo MD PhD [facility] CPT-39922 Level 3 Est. Patient 12:00:47 ELDERLY SITTER Carlton rich MD [facility] CPT-08370 Level 3 Est. Patient 16:31:06 ELDERLY SITTER Carlton rich MD [facility] CPT-77447 Level 3 Est. Patient 16:23:24 ELDERLY SITTER Ridge tam DO [facility] CPT-28902 Level 3 Est. Patient 12:34:12 CDT Carlton rich MD [facility] CPT-26887 Level 2 Est. Patient 15:43:33 CDT Robi armstrong MD [facility] CPT-88546 Level 4 Est. Patient 14:04:44 CDT Carlton rich MD [facility] CPT-87542 Level 3 Est. Patient 05:47:59 CDT Ridge tam [facility] CPT-12694 Level 3 Est. Patient 13:12:53 ELDERLY SITTER Carlton rich MD [facility] CPT-86843 Level 3 Est. Patient 14:26:53 CDT Hugo Restrepo MD [facility] Procedures Code Procedure Name Date Entry Date Standard Desc ription CPT-07416 Venipuncture Draw Fee 15:53:34 CDT CPT-000 Give Appropriate Flu Vaccine 14:14:31 CDT CPT-J1040 Depo Medrol 80 mg (Methyl Prednisolone A cetate) 10:42:44 CDT CPT-J1100 Decadron 8mg (Dexamethasone) 10:42:44 CDT 2 CPT-J0696 Rocephin 1gm Inj Solr 14:32:13 CDT CPT-J1020 Depo Medrol 60 mg (Methyl Prednisolone A cetate) 14:32:13 CDT CPT-J1100 Decadron 6mg (Dexamethasone) 14:32:13 CDT 2 CPT-89611 Hip bilat min 2V w AP pelvis 13:16:20 CDT CPT-96358 Pelvis only 13:07:33 CDT CPT-43531 Spec Collection and Handling Fee 11:25:12 C DT CPT-72182 Fluzone Quadrivalent Intramuscular Suspe nsion 0.5 ML 14:31:55 CDT CPT-52235 Abx/Therapy Injection 13:28:47 ELDERLY SITTER CPT-J2930 Solu Medrol 125 mg (Methyl Prednisolone Sodium Succinate) 12:00:47 ELDERLY SITTER CPT-97440 Venipuncture Draw Fee 11:33:31 CDT CPT-75043 EKG Trac and Interp 11:21:09 CDT CPT-81017 Chest 2V Frontal and Lat 11:21:09 CDT 12/15 CPT-74388 Venipuncture Draw Fee 08:02:34 CDT CPT-69535 Chest 2V Frontal and Lat 05:47:59 CDT 06/05
--- OUTSIDE RECORDS SUMMARY | 2019-10-08 10:01 | XMS REPORT | Clinical Summary ---
[...] URI 465.9 Inactive Ridge Bess DO Ac [place] upper respiratory infections of unspecified site Body Mass Index 35.0-35.9 Adult Refinement 2017 Ridge Bess DO Body Mass Index 35.0-35.9, adult BMI 34-34.9 Refinement Cherelle Torres RN Body Mass Index 35.0-35.9, adult BMI 35-35.9 Refinement David Marianneamisha RICEN Body Mass Index 35.0-35.9, adult BMI 34-34.9 Refinement May Vivar MD Body Mass Index 35.0-35.9, adult BMI 35-35.9 Refinement David Marianne PAWN BROKER Body Mass Index 35.0-35.9, adult BMI 33-33.9 Active David Marianne PAWN [employer]OKER Body Mass Index 35.0-35.9, adult Upper respiratory [...] nonspecific skin eruption 782.1 Active David Marianne [employer] Rash and other nonspecific skin eruption Pharyngitis, acute / sore throat 462 Active 201 12/06/23 David Marianne PAWN [employer]OK[employer] Acute pharyngitis Shingles 053.9 Active David Marianne [employer]WN [employer] Herpes zoster without mention of complication BRONCHITIS [...] Pharyngitis acute ICD-462 Inactive Hugo gore MD Bronchitis ICD-490 Inactive Hugo Restrepo MD 201 10/02/29 URI ICD-465.9 Inactive Ridge Bess DO Rhinitis, acute ICD-460 Inactive Hugo Ochoa MD Sinusitis ICD-473.9 Inactive Hugo Restrepo MD Medication List Medication Instructions Start Date Stop Date Generic Name NDC Status Provider Patient Instruction TRIAMCINOLONE ACETONIDE 0.1 % EXTERNAL CREAM apply bid spari ngly to rash TRIAMCINOLONE ACETONIDE 34335283812 No Longer Active Carlton Hu MD Active TYLENOL WITH CODEINE #3 300-30 MG ORAL TABLET ACETAMINOPHEN-CODEINE 53365871898 No Longer Active Carlton Hu MD Active TYLENOL WITH CODEINE #3 300-30 MG ORAL TABLET 1-2 po q6hr PRN Pa in ACETAMINOPHEN-CODEINE 98083041500 No Longer Active David Lopes AP RN Active ACYCLOVIR 800 MG ORAL TABLET 1 po 5 times daily x 7 days ACYCLOVIR 91768604825 No Longer Active David Marianne PAWN BROKER Active TOPAMAX 100 MG ORAL TABLET 1 by mouth twice daily TOPIRAMATE 79506437013 Active Columba Raida Active TRIAMCINOLONE ACETONIDE 0.1 % EXTERNAL OINTMENT Apply to affected areas TID PRN Rash/Itching for up 2 weeks TRIAMCINOLONE ACETON KAYLA 37937023934 No Longer Active David Marianne PAWN BROKER Active AMOXICILLIN 500 MG ORAL CAPSULE 1 cap by mouth twice daily 10/21 AMOXICILLIN 36877228791 No Longer Active David Marianne PAWN BROKER Active ELMIRON 100 MG ORAL CAPSULE 2 capsules in the morning and 1 capsule at night PENTOSAN POLYSULFATE SODIUM 86612326699 Active Cinthia H art FAITH DOCTOR Active CYMBALTA 30 MG ORAL CAPSULE DELAYED RELEASE PARTICLES 1 cap by mouth daily for depression DULOXETINE HCL 96977613889 No Longer Active Carlton Hu MD Active CYMBALTA 60 MG ORAL CAPSULE DELAYED RELEASE PARTICLES 1 cap by mouth daily for mood and pain DULOXETINE HCL 14568659336 Active Carlton Hu MD Active TUSSIONEX PENNKINETIC ER 10-8 MG/5ML ORAL SUSPENSION E XTENDED RELEASE 5ml po q12hr PRN Cough HYDROCOD POLST-CHLORPHEN POLST 78545613875 Active Carlton Hu MD Active PREDNISONE 20 MG ORAL TABLET Take 2 tabs day 1 and 2 and 1 t ab days 3 and 4 PREDNISONE 79976403167 No Longer Active David Marianne PAWN BROKER Active DOXYCYCLINE HYCLATE 100 MG ORAL CAPSULE 1 cap by mouth twice latasha ly DOXYCYCLINE HYCLATE 10062510396 No Longer Active David Marianne PAWN BROKER Active TOPAMAX 100 MG ORAL TABLET Take 1 tablet po bid TOPIRAMATE 88890880720 No Longer Active David Marianne PAWN BROKER Active TUSSIONEX PENNKINETIC ER 10-8 MG/5ML ORAL SUSPENSION E XTENDED RELEASE 5ml po q12hr PRN Cough HYDROCOD POLST-CHLORPHEN POLST 5 3053724861 No Longer Active David Marianne PAWN BROKER Active AUGMENTIN 875-125 MG ORAL TABLET 1 po BID x 10 days 20 18/04/16 AMOXICILLIN-POT CLAVULANATE 05602639142 No Longer Active David Marianne PAWN BROKER Active PREDNISONE 50 MG ORAL TABLET Take 50 mg dialy for 6 day s 7 PREDNISONE 54638570917 No Longer Active David Marianne PAWN BROKER Active TUSSIONEX PENNKINETIC ER 10-8 MG/5ML ORAL SUSPENSION E XTENDED RELEASE 5ml po q12hr PRN Cough HYDROCOD POLST-CHLORPHEN POLST 5 7269472655 No Longer Active Cherelle Torres RN Active PREDNISONE 20 MG ORAL TABLET two tabs by mouth today, then one tab by mouth days two and three and four PREDNISONE 09180910104 No Lo nger Active Cherelle Torres RN Active AZITHROMYCIN 250 MG ORAL TABLET 2 po qd x 1 day, then 1 po q d x 4 days AZITHROMYCIN 22153141841 No Longer Active Ridge Bess DO Active PREDNISONE 20 MG ORAL TABLET 2 po qd x 5 days P REDNISONE 68247162180 No Longer Active Perez Mora MD Active PROAIR HFA 108 (90 BASE) MCG/ACT INHALATION AEROSOL SO LUTION 2 puffs four times a day as needed ALBUTEROL SULFATE 50288222571 No Long er Active Becky FUENTES Active ASPIRIN 81 MG ORAL TABLET 1 po qd ASPIRIN 07086705613 Active Carlton Hu MD Active PREDNISONE 20 MG ORAL TABLET 1 tab twice daily for 3 d ay, then one daily for three days PREDNISONE 17708087061 No Longer Active Carlton Hu MD Active AUGMENTIN 875-125 MG ORAL TABLET 1 po BID x 10 days 16/03/22 AMOXICILLIN-POT CLAVULANATE 63228382655 No Longer Active Elise Garcia APRN Active TERBINAFINE HCL 250 MG ORAL TABLET 1 qDay for nail fungus 7 TERBINAFINE HCL 41608749572 No Longer Active Carlton Hu MD A ctive AMOXICILLIN 500 MG ORAL CAPSULE 1 cap by mouth three times a day AMOXICILLIN 62705513352 No Longer Active Carlton Hu MD Active ELMIRON 100 MG ORAL CAPSULE 2 tablets in the am and 1 tablet at hs PENTOSAN POLYSULFATE SODIUM 34549328155 No Longer Active Robert Hu MD Active MUCINEX D 60-600 MG ORAL TABLET EXTENDED RELEASE 12 HOUR 1 t ab po q am PSEUDOEPHEDRINE-GUAIFENESIN 97606984095 No Longer Act nael Carlton Hu MD Active MUCINEX DM MAXIMUM STRENGTH 60-1200 MG ORAL TABLET EXT ENDED RELEASE 12 HOUR 1 tab po q am DEXTROMETHORPHAN-GUAIFENESIN 86624850425 No Longer Active Carlton Hu MD Active TUSSIONEX PENNKINETIC ER 10-8 MG/5ML ORAL SUSPENSION E XTENDED RELEASE 5ml po q12hr PRN Cough HYDROCOD POLST-CHLORPHEN POLST 5 4334628232 No Longer Active Carlton Hu MD Active POTASSIUM CHLORIDE ER 20 MEQ ORAL TABLET EXTENDED RELE ASE Take 1 by mouth 4 times daily for 7 days POTASSIUM CHLORIDE 28351526818 No Longer Active Carlton Hu MD Active ZITHROMAX 250 MG ORAL TABLET 2 po today, then 1 po q days 2-5 20 14/09/04 AZITHROMYCIN 29552089750 No Longer Active Elise Garcia APRN Active TUSSIONEX PENNKINETIC ER 10-8 MG/5ML ORAL SUSPENSION E XTENDED RELEASE 5 ml twice a day as needed for cough HYDROCOD POLST-CHLORPH EN POLST 29766675006 No Longer Active Elise Garcia APRN Active MONTELUKAST SODIUM 10 MG ORAL TABLET 1 po daily for Allergy MONTELUKAST SODIUM 42988013991 Active Carlton Hu MD Ac tive TUSSIONEX PENNKINETIC ER 10-8 MG/5ML ORAL SUSPENSION E XTENDED RELEASE 5ml po q12hr PRN Cough HYDROCOD POLST-CHLORPHEN POLST 5 1582110189 No Longer Active Hugo Restrepo MD Active GABAPENTIN 100 MG ORAL CAPSULE 1 po BID for fibromyalgia GABAPENTIN 15754482439 Active ALFREDO Holly Active LYRICA 100 MG ORAL CAPSULE Take 1 tab po BID for fibromyalgia 20 11/08/21 PREGABALIN 55230582498 No Longer Active Elise Garcia APRN A ctive PREDNISONE 20 MG ORAL TABLET 2 tabs daily for 3 days, 1 tab daily for 3 days, 1/2 tab daily for 2 days PREDNISONE 58693295499 No Longer Active Diya De Guzman APRN Active TUSSIONEX PENNKINETIC ER 10-8 MG/5ML ORAL SUSPENSION E XTENDED RELEASE 5 mL PO q 12 hrs PRN cough HYDROCOD POLST-CHLORPHEN POLST 099245 94699 No Longer Active Diya De Guzman APRN Active FLUTICASONE PROPIONATE 50 MCG/ACT NASAL SUSPENSION 2 s prays each nostril daily until bottle is empty FLUTICASONE PROPIONATE 348097912 99 No Longer Active Jillina Cesarl PAWN BROKER Active ASMANEX 60 METERED DOSES 220 MCG/INH INHALATION AEROSO L POWDER BREATH ACTIVATED 1 puff bid with rinse after MOMETASONE FUROATE 1624586 4102 No Longer Active Diya De Guzman APRN Active ZITHROMAX Z-REYNA 250 MG ORAL TABLET 2 today, then 1 daily for 4 d ays AZITHROMYCIN 17847964532 No Longer Active Elise Garcia APRN Active TUSSIONEX PENNKINETIC ER 10-8 MG/5ML ORAL SUSPENSION E XTENDED RELEASE 5ml po q12hr PRN Cough HYDROCOD POLST-CHLORPHEN POLST 5 3366703878 No Longer Active Elise Garcia APRN Active PREDNISONE 20 MG ORAL TABLET 2 tabs daily for 3 days, 1 tab daily for 3 days, 1/2 tab daily for 2 days PREDNISONE 24740941647 No Longer Active Diya De Guzman APRN Active AMOXICILLIN 500 MG ORAL CAPSULE 2 po BID x 10 days 201 09/29/08 AMOXICILLIN 89722210207 No Longer Active Diya De Guzman APRN Act nael SINGULAIR 10 MG ORAL TABLET 1 po qday for allergies 20 14/01/12 MONTELUKAST SODIUM 45471319672 No Longer Active Carlton Hu MD Active LEVAQUIN 500 MG ORAL TABLET 1 tablet by mouth daily 20 13/09/24 LEVOFLOXACIN 38114465554 No Longer Active Carlton Hu MD Acti ve FLUTICASONE PROPIONATE 50 MCG/ACT NASAL SUSPENSION 2 s prays each nostril daily for 2 weeks, then 1 spray each nostril daily. FLUTICASONE PROPIONATE 50152996658 Active Carlton Hu MD Active ZITHROMAX 250 MG ORAL TABLET 2 po today, then 1 po q days 2-5 20 13/08/10 AZITHROMYCIN 22057210980 No Longer Active Elise Garcia APRN Active XANAX 0.5 MG ORAL TABLET one tablet by mouth daily prn anxiety 2015 ALPRAZOLAM 95461500021 Active ALFREDO Holly Active CEFDINIR 300 MG ORAL CAPSULE 1 po BID x 10 days CEFDINIR 69759343874 No Longer Active Carlton Hu MD Active ZOCOR 40 MG ORAL TABLET 1 tab by mouth daily SI MVASTATIN 65953817740 No Longer Active Carlton Hu MD Active CYCLOBENZAPRINE HCL 10 MG ORAL TABLET 1 tablet by mouth BID prn had pain CYCLOBENZAPRINE HCL 83886580078 No Longer Active Jayden Hu MD Active LEVOFLOXACIN 500 MG ORAL TABLET 1 tab PO daily x 10 days LEVOFLOXACIN 44152921871 No Longer Active Carlton Hu MD Acti ve PREDNISONE 20 MG ORAL TABLET 3 tab PO qd x 2d, 2 tab P O qd x 2d, 1 tab PO qd x 2d, 1/2 tab PO qd x 2d PREDNISONE 91464769333 No Lo nger Active Carlton Hu MD Active FLUTICASONE PROPIONATE 50 MCG/ACT NASAL SUSPENSION 1 t o 2 sprays each nostril daily FLUTICASONE PROPIONATE 47437931279 No Longer Ac tive Blaine HERNANDEZ Active CHERATUSSIN AC 100-10 MG/5ML ORAL SYRUP 1 tsp by mouth every 4 hours as needed for cough GUAIFENESIN-CODEINE 01519464703 No Longe r Active Blaine HERNANDEZ Active PROMETHAZINE-CODEINE 6.25-10 MG/5ML ORAL SYRUP 1 tsp b y mouth every 6 hours if needed for cough PROMETHAZINE-CODEINE 61575353837 No Longer Active Blaine HERNANDEZ Active CHERATUSSIN AC 100-10 MG/5ML ORAL SYRUP 1 tsp by mouth every 4 hours as needed for cough GUAIFENESIN-CODEINE 79873504722 No Longe r Active Blaine HERNANDEZ Active ZITHROMAX Z-REYNA 250 MG ORAL TABLET 2 today, then 1 daily for 4 d ays AZITHROMYCIN 27656844761 No Longer Active Columba Raida Act nael ZITHROMAX 250 MG ORAL TABLET 2 po today, then 1 po q days 2-5 20 14/03/21 AZITHROMYCIN 24864665053 No Longer Active Carlton Hu MD Active ZITHROMAX Z-REYNA 250 MG ORAL TABLET 2 today, then 1 daily for 4 d ays AZITHROMYCIN 35535935987 No Longer Active Columba Raida Act nael AUGMENTIN 875-125 MG ORAL TABLET 1 po BID x 10 days 13/01/20 AMOXICILLIN-POT CLAVULANATE 58484917535 No Longer Active Diya De Guzman APRN Active ZITHROMAX 250 MG ORAL TABLET 2 po today, then 1 po q days 2-5 20 12/08/14 AZITHROMYCIN 03848460777 No Longer Active Carlton Hu MD Active TRAMADOL HCL 50 MG ORAL TABLET 1 po tid with ES Tylenol TRAMADOL HCL 49044472351 Active ALFREDO Holly Active PREMARIN 0.625 MG ORAL TABLET TAKE 1 TAB BY MOUTH DAILY ESTROGENS CONJUGATED 43205759568 No Longer Active Ridge Bess DO A ctive CYMBALTA 30 MG ORAL CAPSULE DELAYED RELEASE PARTICLES 1 cap by mouth daily DULOXETINE HCL 25918921411 No Longer Active Ridge tam DO Active AMOXICILLIN 500 MG ORAL CAPSULE 1 tab by mouth 3 times daily x 10 days AMOXICILLIN 27010538777 No Longer Active Carlton bustamante MD Active AMOXICILLIN 500 MG ORAL CAPSULE 1 tab by mouth 3 times daily x 10 days AMOXICILLIN 61866254119 No Longer Active Carlton bustamante MD Active PROMETHAZINE-CODEINE 6.25-10 MG/5ML ORAL SYRUP 1 tsp b y mouth every 8 hours prn cough PROMETHAZINE-CODEINE 28974626691 No Longer Acti ve Carlton Hu MD Active MEDROL 4 MG ORAL TABLET THERAPY PACK 6 pills x 1 day, then 5 pills x 1 day then 4 pills x 1 day, then 3 pills x 1 day, then 2 pills x 1 day, then 1 pill x 1 day, then stop METHYLPREDNISOLONE 56477300514 No Long er Active Perez Mora MD Active AZITHROMYCIN 250 MG ORAL TABLET 2 po qd x 1 day, then 1 po q d x 4 days AZITHROMYCIN 61471634930 No Longer Active Perez Ambriz MD Active SYMBICORT 160-4.5 MCG/ACT INHALATION AEROSOL 2 puffs bid wit h rinse after BUDESONIDE-FORMOTEROL FUMARATE 46712798292 N o Longer Active Perez Mora MD Active LYRICA 75 MG ORAL CAPSULE TAKE 1 CAPSULE BY MOUTH TWICE DAILY PREGABALIN 13288766147 No Longer Active Carlton Hu MD Acti ve TOPAMAX 25 MG ORAL TABLET 1 qHS x 1 week, then 1 BID x 1 week, then 1 qAM and 2 qHS x 1 week, then 2 BID (migraine prevention) T OPIRAMATE 90522162573 No Longer Active Jerica FUENTES Active TOPAMAX 50 MG ORAL TABLET take 1 tab po BID for migraines. 07/02 TOPIRAMATE 35630476160 No Longer Active Jerica FUENTES Active TRIAMCINOLONE ACETONIDE 0.1 % EXTERNAL CREAM apply three roger es daily prn rash TRIAMCINOLONE ACETONIDE 85413401075 No Longer Active Carlton Hu MD Active PAXIL 40 MG ORAL TABLET take 1 tab po qday for depression 0 PAROXETINE HCL 85071883393 Active Carlton Hu MD Active CHERATUSSIN AC 100-10 MG/5ML ORAL SYRUP 5ml po q6hr PRN Cough 20 13/04/14 GUAIFENESIN-CODEINE 75096034141 No Longer Active Carlton Hu MD Active MEDROL 4 MG ORAL TABLET THERAPY PACK 6 tabs on day 1, 5 tabs on day 2, 4 tabs on day 3, 3 tabs on day 4, 2 tabs on day 5, 1 tab on day 6 2013 METHYLPREDNISOLONE 68301714685 No Longer Active Perez Mora MD Active AZITHROMYCIN 250 MG ORAL TABLET 2 po qd x 1 day, then 1 po q d x 4 days AZITHROMYCIN 94512781876 No Longer Active Perez Ambriz MD Active PROPRANOLOL HCL 60 MG ORAL TABLET 1 PO Q D PROPRANOLOL HCL 97797339204 No Longer Active Perez Mora MD Activ e CHERATUSSIN AC 100-10 MG/5ML ORAL SYRUP take one tsp po Q 6h ours prn cough GUAIFENESIN-CODEINE 15969680341 No Longer Active Zia Mora MD Active AUGMENTIN 875-125 MG ORAL TABLET 1 tab by mouth twice daily with food AMOXICILLIN-POT CLAVULANATE 63881932931 No Longer Act nael Perez Mora MD Active CHERATUSSIN AC 100-10 MG/5ML ORAL SYRUP 1 tsp by mouth every 4 hours as needed for cough GUAIFENESIN-CODEINE 83755395920 No Longe r Active Hugo Restrepo MD Active ACETAMINOPHEN-CODEINE #3 300-30 MG ORAL TABLET 1 PO Q 4-6 HRS MD N PAIN ACETAMINOPHEN-CODEINE 32870564868 No Longer Active Hugo Restrepo MD Active LEVAQUIN 500 MG ORAL TABLET take one po QD LEVO FLOXACIN 56183647168 No Longer Active Griffin HERNANDEZ Active PREDNISONE 20 MG ORAL TABLET Take 3 tabs daily for 3 d ays, 2 tabs daily for 3 days, 1 tab daily for 3 days, 1/2 tab daily for 3 days 11/07 PREDNISONE 72268600207 No Longer Active Carlton Hu MD Acti ve AVELOX 400 MG ORAL TABLET 1 tab by mouth daily MOXIFLOXACIN HCL 09756829171 No Longer Active Carlton Hu MD Active CHERATUSSIN AC 100-10 MG/5ML ORAL SYRUP 1 tsp by mouth every 4 hours as needed for cough GUAIFENESIN-CODEINE 19742141310 No Longe r Active Hugo Restrepo MD Active AVELOX 400 MG ORAL TABLET 1 tab by mouth daily MOXIFLOXACIN HCL 51663384977 No Longer Active Marcy De La Rosa MD PhD Active TERBINAFINE HCL 250 MG ORAL TABLET 1 qDay T ERBINAFINE HCL 31168324855 No Longer Active Marcy De La Rosa MD PhD Active CHERATUSSIN AC 100-10 MG/5ML ORAL SYRUP 1 tsp by mouth every 4 hours as needed for cough GUAIFENESIN-CODEINE 56189006931 No Longe r Active Marcy De La Rosa MD PhD Active AVELOX 400 MG ORAL TABLET 1 tab by mouth daily MOXIFLOXACIN HCL 59166442700 No Longer Active Marcy De La Rosa MD PhD Active HYDROCODONE-ACETAMINOPHEN 5-325 MG ORAL TABLET 1 po q 6hr PRN co ugh HYDROCODONE-ACETAMINOPHEN 83533466215 No Longer Active Marcy De La Rosa MD PhD Active PREDNISONE 20 MG ORAL TABLET 2 tabs daily for 3 days, 1 tab daily for 3 days, 1/2 tab daily for 2 days PREDNISONE 85360985853 No Longer Active Carlton Hu MD Active CEFDINIR 300 MG ORAL CAPSULE by mouth twice a day 2011 CEFDINIR 76933967347 No Longer Active Carlton Hu MD Acti ve HYDROCHLOROTHIAZIDE 25 MG ORAL TABLET 1 TAB PO DAILY HYDROCHLOROTHIAZIDE 84510353072 Active Carlton Hu MD A ctive ACETAMINOPHEN-CODEINE #3 300-30 MG ORAL TABLET 1 tablet po q 4-6 hrs prn pain ACETAMINOPHEN-CODEINE 67550542299 No Longer Active Ridge Bess DO Active ZITHROMAX 250 MG ORAL TABLET 2 po today, then 1 po q days 2-5 20 03/07/07 AZITHROMYCIN 77512899796 No Longer Active Carlton Hu MD Active CHERATUSSIN AC 100-10 MG/5ML ORAL SYRUP take 1 tsp po q4-6 h ours prn cough GUAIFENESIN-CODEINE 10798923901 No Longer Active Jayden Hu MD Active ACETAMINOPHEN-CODEINE #3 300-30 MG ORAL TABLET 1 PO Q 4-6 HR PRN PAIN ACETAMINOPHEN-CODEINE 75115052952 No Longer Active Arnol Hu MD Active LORTAB 7.5-500 MG/15ML ORAL ELIXIR 7.5 ml po q 4 hour prn cough HYDROCODONE-ACETAMINOPHEN 42540053271 No Longer Active Carlton Hu MD Active PREDNISONE 20 MG ORAL TABLET 1 po bid 3 days, then 1 po q day 3 days PREDNISONE 90488761288 No Longer Active Carlton Hu MD Active CEFDINIR 300 MG ORAL CAPSULE by mouth twice a day 2011 CEFDINIR 85618576458 No Longer Active Carlton Hu MD Acti ve CEFDINIR 300 MG ORAL CAPSULE by mouth twice a day 2010 CEFDINIR 00742085367 No Longer Active Carlton Hu MD Acti ve CEFDINIR 300 MG ORAL CAPSULE by mouth twice a day 2010 CEFDINIR 92946837524 No Longer Active Carlton Hu MD Acti ve TESSALON PERLES 100 MG ORAL CAPSULE 1 tablet by mouth 3 times daily as needed for cough BENZONATATE 28221113441 No Longer Active Carlton Hu MD Active CEFDINIR 300 MG ORAL CAPSULE by mouth twice a day 2010 CEFDINIR 87817286849 No Longer Active Carlton Hu MD Acti ve ZITHROMAX Z-REYNA 250 MG ORAL TABLET 2 today, then 1 daily for 4 d ays AZITHROMYCIN 36476558036 No Longer Active Hugo Restrepo MD Active TESSALON PERLES 100 MG ORAL CAPSULE 1 tablet by mouth 3 times daily as needed for cough TESSALON PERLES 100 MG ORAL CAPSULE 61338 7 BENZONATATE Inactive PREDNISONE 20 MG ORAL TABLET 1 po bid 3 days, then 1 po q day 3 days PREDNISONE 20 MG ORAL TABLET 686998 PREDNISONE Greer ctive LORTAB 7.5-500 MG/15ML ORAL ELIXIR 7.5 ml po q 4 hour prn cough LORTAB 7.5-500 MG/15ML ORAL ELIXIR HYDROCODONE-A CETAMINOPHEN Inactive ACETAMINOPHEN-CODEINE #3 300-30 MG ORAL TABLET 1 PO Q 4-6 HR PRN PAIN ACETAMINOPHEN-CODEINE #3 300-30 MG ORAL TABLET 9 35419 ACETAMINOPHEN-CODEINE Inactive CHERATUSSIN AC 100-10 MG/5ML ORAL SYRUP take 1 tsp po q4-6 h ours prn cough CHERATUSSIN AC 100-10 MG/5ML ORAL SYRUP 696183 GUAIFENESIN-CODEINE Inactive ACETAMINOPHEN-CODEINE #3 300-30 MG ORAL TABLET 1 tablet po q 4-6 hrs prn pain ACETAMINOPHEN-CODEINE #3 300-30 MG ORAL TABLET 194298 ACETAMINOPHEN-CODEINE Inactive HYDROCODONE-ACETAMINOPHEN 5-325 MG ORAL TABLET 1 po q 6hr PRN co ugh HYDROCODONE-ACETAMINOPHEN 5-325 MG ORAL TABLET 452448 HYDROCODONE-ACETAMINOPHEN Inactive AVELOX 400 MG ORAL TABLET 1 tab by mouth daily AVELOX 400 MG ORAL TABLET MOXIFLOXACIN HCL Inactive CHERATUSSIN AC 100-10 MG/5ML ORAL SYRUP 1 tsp by mouth every 4 hours as needed for cough CHERATUSSIN AC 100-10 MG/5ML ORAL SYRUP 9 21701 GUAIFENESIN-CODEINE Inactive TERBINAFINE HCL 250 MG ORAL TABLET 1 qDay 07/08 TERBINAFINE HCL 250 MG ORAL TABLET 061788 TERBINAFINE HCL Inactive CHERATUSSIN AC 100-10 MG/5ML ORAL SYRUP 1 tsp by mouth every 4 hours as needed for cough CHERATUSSIN AC 100-10 MG/5ML ORAL SYRUP 9 83235 GUAIFENESIN-CODEINE Inactive ACETAMINOPHEN-CODEINE #3 300-30 MG ORAL TABLET 1 PO Q 4-6 HRS MD N PAIN ACETAMINOPHEN-CODEINE #3 300-30 MG ORAL TABLET 024543 ACETAMINOPHEN-CODEINE Inactive CHERATUSSIN AC 100-10 MG/5ML ORAL SYRUP 1 tsp by mouth every 4 hours as needed for cough CHERATUSSIN AC 100-10 MG/5ML ORAL SYRUP 9 64270 GUAIFENESIN-CODEINE Inactive AUGMENTIN 875-125 MG ORAL TABLET 1 tab by mouth twice daily with food AUGMENTIN 875-125 MG ORAL TABLET AMOXICIL MADELINE-POT CLAVULANATE Inactive CHERATUSSIN AC 100-10 MG/5ML ORAL SYRUP take one tsp po Q 6h ours prn cough CHERATUSSIN AC 100-10 MG/5ML ORAL SYRUP 188876 GUAIFENESIN-CODEINE Inactive PROPRANOLOL HCL 60 MG ORAL TABLET 1 PO Q D PROPRANOLOL HCL 60 MG ORAL TABLET 658647 PROPRANOLOL HCL Inactive TOPAMAX 50 MG ORAL TABLET take 1 tab po BID for migraines. 07/02 TOPAMAX 50 MG ORAL TABLET 803799 TOPIRAMATE Inacti ve TOPAMAX 25 MG ORAL TABLET 1 qHS x 1 week, then 1 BID x 1 week, then 1 qAM and 2 qHS x 1 week, then 2 BID (migraine prevention) TOPAMAX 25 MG ORAL TABLET 748375 TOPIRAMATE Inactive LYRICA 75 MG ORAL CAPSULE TAKE 1 CAPSULE BY MOUTH TWICE DAILY LYRICA 75 MG ORAL CAPSULE 153433 PREGABALIN Inactive SYMBICORT 160-4.5 MCG/ACT INHALATION AEROSOL 2 puffs bid wit h rinse after SYMBICORT 160-4.5 MCG/ACT INHALATION AEROSOL BUDESONIDE- FORMOTEROL FUMARATE Inactive PROMETHAZINE-CODEINE 6.25-10 MG/5ML ORAL SYRUP 1 tsp b y mouth every 8 hours prn cough PROMETHAZINE-CODEINE 6.25-10 MG/ 5ML ORAL SYRUP 042254 PROMETHAZINE-CODEINE Inactive CYMBALTA 30 MG ORAL CAPSULE DELAYED RELEASE PARTICLES 1 cap by mouth daily CYMBALTA 30 MG ORAL CAPSULE DELAYED RELE ASE PARTICLES 639609 DULOXETINE HCL Inactive PREMARIN 0.625 MG ORAL TABLET TAKE 1 TAB BY MOUTH DAILY PREMARIN 0.625 MG ORAL TABLET ESTROGENS CONJUGATED Inactive CHERATUSSIN AC 100-10 MG/5ML ORAL SYRUP 1 tsp by mouth every 4 hours as needed for cough CHERATUSSIN AC 100-10 MG/5ML ORAL SYRUP 9 83760 GUAIFENESIN-CODEINE Inactive PROMETHAZINE-CODEINE 6.25-10 MG/5ML ORAL SYRUP 1 tsp b y mouth every 6 hours if needed for cough PROMETHAZINE-CODEINE 6.25-10 MG/5ML ORAL SYRUP 583129 PROMETHAZINE-CODEINE Inactive CHERATUSSIN AC 100-10 MG/5ML ORAL SYRUP 1 tsp by mouth every 4 hours as needed for cough CHERATUSSIN AC 100-10 MG/5ML ORAL SYRUP 9 88487 GUAIFENESIN-CODEINE Inactive FLUTICASONE PROPIONATE 50 MCG/ACT NASAL SUSPENSION 1 t o 2 sprays each nostril daily FLUTICASONE PROPIONATE 50 MCG/AC T NASAL SUSPENSION 9260956 FLUTICASONE PROPIONATE Inactive PREDNISONE 20 MG ORAL TABLET 3 tab PO qd x 2d, 2 tab P O qd x 2d, 1 tab PO qd x 2d, 1/2 tab PO qd x 2d PREDNISONE 20 MG ORAL TAB LET 611795 PREDNISONE Inactive LEVOFLOXACIN 500 MG ORAL TABLET 1 tab PO daily x 10 days LEVOFLOXACIN 500 MG ORAL TABLET 788339 LEVOFLOXACIN Inactive CYCLOBENZAPRINE HCL 10 MG ORAL TABLET 1 tablet by mouth BID prn had pain CYCLOBENZAPRINE HCL 10 MG ORAL TABLET 083714 CYCLOBENZAPRINE HCL Inactive ZOCOR 40 MG ORAL TABLET 1 tab by mouth daily 4 ZOCOR 40 MG ORAL TABLET 417046 SIMVASTATIN Inactive TUSSIONEX PENNKINETIC ER 10-8 MG/5ML [...] FLUTICASONE PROPIO EFE 50 MCG/ACT NASAL SUSPENSION 1534932 FLUTICASONE PROPIONATE Inactive TUSSIONEX PENNKINETIC ER 10-8 MG/5ML ORAL SUSPENSION E XTENDED RELEASE 5 mL PO q 12 hrs PRN cough TUSSIONEX PENNKINETI C ER 10-8 MG/5ML ORAL SUSPENSION EXTENDED RELEASE HYDROCOD POLST-CHLORPHEN POLST I nactive LYRICA 100 MG ORAL CAPSULE Take 1 tab po BID for fibromyalgia 20 11/08/21 LYRICA 100 MG ORAL CAPSULE 682951 PREGABALIN Inact nael TUSSIONEX PENNKINETIC ER 10-8 [...] three days PREDNISONE 20 MG ORAL TABLET 752934 PREDNIS ONE Inactive PROAIR HFA 108 (90 BASE) MCG/ACT INHALATION AEROSOL SO LUTION 2 puffs four times a day as needed PROAIR HFA 108 (90 B ASE) MCG/ACT INHALATION AEROSOL SOLUTION ALBUTEROL SULFATE Inactive PREDNISONE 20 MG ORAL TABLET two tabs by mouth today, then one tab by mouth days two and three and four PREDNISONE 20 MG ORAL TAB LET 358612 PREDNISONE Inactive TUSSIONEX PENNKINETIC ER 10-8 MG/5ML [...] bid 04/20 TOPAMAX 100 MG ORAL TABLET 464630 TOPIRAMATE Inactive CYMBALTA 30 MG ORAL CAPSULE DELAYED RELEASE PARTICLES 1 cap by mouth daily for depression CYMBALTA 30 MG ORAL CAPSULE DELAYED RELEASE PARTICLES 085515 DULOXETINE HCL Inactive TYLENOL WITH CODEINE #3 300-30 MG ORAL TABLET 1-2 po q6hr PRN Pa in TYLENOL WITH CODEINE #3 300-30 MG ORAL TABLET 085830 ACETAMINOPHEN-CODEINE Inactive TYLENOL WITH CODEINE #3 300-30 MG ORAL TABLET TYLENOL WITH CODEINE #3 300-30 MG ORAL TABLET 104820 ACETAMINOPHEN-CODEINE Inactive TRIAMCINOLONE ACETONIDE 0.1 % EXTERNAL CREAM apply bid spari ngly to rash TRIAMCINOLONE ACETONIDE 0.1 % EXTERNAL CREAM 101 4314 TRIAMCINOLONE ACETONIDE Inactive ZITHROMAX Z-REYNA 250 MG ORAL TABLET 2 today, then 1 daily for 4 d ays ZITHROMAX Z-REYNA 250 MG ORAL TABLET 252758 AZITHROMYCIN Inactive CEFDINIR 300 MG ORAL CAPSULE by mouth twice a day 2010 CEFDINIR 300 MG ORAL CAPSULE [id number] CEFDINIR Inactive CEFDINIR 300 MG ORAL CAPSULE by mouth twice a day 2010 CEFDINIR 300 MG ORAL CAPSULE [id number] CEFDINIR Inactive CEFDINIR 300 MG ORAL CAPSULE by mouth twice a day 2010 CEFDINIR 300 MG ORAL CAPSULE [id number] CEFDINIR Inactive CEFDINIR 300 MG ORAL CAPSULE by mouth twice a day 2011 CEFDINIR 300 MG ORAL CAPSULE 20020704 CEFDINIR Inactive ZITHROMAX 250 MG ORAL TABLET 2 po today, then 1 po q days 2-5 20 03/07/07 ZITHROMAX 250 MG ORAL TABLET 031749 AZITHROMYCIN [place] [facility] CEFDINIR 300 MG ORAL CAPSULE by mouth twice a day 2011 CEFDINIR 300 MG ORAL CAPSULE 20020704 CEFDINIR Inactive PREDNISONE 20 MG ORAL TABLET 2 tabs daily for 3 days, 1 tab daily for 3 days, 1/2 tab daily for 2 days PREDNISONE 20 MG ORAL T ABLET 476768 PREDNISONE Inactive AVELOX 400 MG ORAL TABLET [...] days 11/07 PREDNISONE 20 MG ORAL TABLET 618010 PREDNISONE Inactive LEVAQUIN 500 MG ORAL TABLET take one po QD LEVAQUIN 500 MG ORAL TABLET 540407 LEVOFLOXACIN Inactive AZITHROMYCIN 250 MG ORAL TABLET 2 po qd x 1 day, then 1 po q d x 4 days AZITHROMYCIN 250 MG ORAL TABLET 070103 AZITHROMY GIOVANNI Inactive MEDROL 4 MG ORAL TABLET THERAPY PACK 6 tabs on day 1, 5 tabs on day 2, 4 tabs on day 3, 3 tabs on day 4, 2 tabs on day 5, 1 tab on day 6 2013 MEDROL 4 MG ORAL TABLET THERAPY PACK 614348 METHYLPREDNISOLONE [place] [facility] CHERATUSSIN AC 100-10 MG/5ML ORAL SYRUP 5ml po q6hr PRN Cough 20 13/04/14 CHERATUSSIN AC 100-10 MG/5ML ORAL SYRUP 993269 GUAIFENE SIN-CODEINE Inactive TRIAMCINOLONE ACETONIDE 0.1 % EXTERNAL CREAM apply three roger es daily prn rash TRIAMCINOLONE ACETONIDE 0.1 % EXTERNAL CREAM 101 4314 TRIAMCINOLONE ACETONIDE Inactive AZITHROMYCIN 250 MG ORAL TABLET 2 po qd x 1 day, then 1 po q d x 4 days AZITHROMYCIN 250 MG ORAL TABLET 271876 AZITHROMY GIOVANNI Inactive MEDROL 4 MG ORAL TABLET THERAPY PACK 6 pills x 1 day, then 5 pills x 1 day then 4 pills x 1 day, then 3 pills x 1 day, then 2 pills x 1 day, then 1 pill x 1 day, then stop MEDROL 4 MG ORAL TABLET THERAPY PACK 778115 METHYLPREDNISOLONE Inactive AMOXICILLIN 500 MG ORAL CAPSULE 1 tab by mouth 3 times daily x 10 days AMOXICILLIN 500 MG ORAL CAPSULE 999959 AMOXICILL IN Inactive AMOXICILLIN 500 MG ORAL CAPSULE 1 tab by mouth 3 times daily x 10 days AMOXICILLIN 500 MG ORAL CAPSULE 632364 AMOXICILL IN Inactive ZITHROMAX 250 MG ORAL TABLET 2 po today, then 1 po q days 2-5 20 12/08/14 ZITHROMAX 250 MG ORAL TABLET 257858 AZITHROMYCIN [place] [facility] AUGMENTIN 875-125 MG ORAL TABLET 1 po BID x 10 days 20 13/01/20 AUGMENTIN 875-125 MG ORAL TABLET AMOXICILLIN-POT CLAVULANATE Inactive ZITHROMAX Z-REYNA 250 MG ORAL TABLET 2 today, then 1 daily for 4 d ays ZITHROMAX Z-REYNA 250 MG ORAL TABLET 132618 AZITHROMYCIN Inactive ZITHROMAX 250 MG ORAL TABLET 2 po today, then 1 po q days 2-5 20 14/03/21 ZITHROMAX 250 MG ORAL TABLET 310145 AZITHROMYCIN [place] [facility] ZITHROMAX Z-REYNA 250 MG ORAL TABLET 2 today, then 1 daily for 4 d ays ZITHROMAX Z-REYNA 250 MG ORAL TABLET 663021 AZITHROMYCIN Inactive CEFDINIR 300 MG ORAL CAPSULE 1 po BID x 10 days 06/21 CEFDINIR 300 MG ORAL CAPSULE 555629 CEFDINIR Inactive ZITHROMAX 250 MG ORAL TABLET 2 po today, then 1 po q days 2-5 20 13/08/10 ZITHROMAX 250 MG ORAL TABLET 284608 AZITHROMYCIN [place] [facility] LEVAQUIN 500 MG ORAL TABLET 1 tablet by mouth daily 13/09/24 LEVAQUIN 500 MG ORAL TABLET 221112 LEVOFLOXACIN Inactive SINGULAIR 10 MG ORAL TABLET 1 po qday for allergies 20 14/01/12 SINGULAIR 10 MG ORAL TABLET 824900 MONTELUKAST SODIUM Inactive AMOXICILLIN 500 MG ORAL CAPSULE 2 po BID x 10 days 201 09/29/08 AMOXICILLIN 500 MG ORAL CAPSULE 584562 AMOXICILLIN Inactive PREDNISONE 20 MG ORAL TABLET 2 tabs daily for 3 days, 1 tab daily for 3 days, 1/2 tab daily for 2 days PREDNISONE 20 MG ORAL T ABLET 703149 PREDNISONE Inactive ZITHROMAX Z-REYNA 250 MG ORAL TABLET 2 today, then 1 daily for 4 d ays ZITHROMAX Z-REYNA 250 MG ORAL TABLET 867798 AZITHROMYCIN Inactive PREDNISONE 20 MG ORAL TABLET 2 tabs daily for 3 days, 1 tab daily for 3 days, 1/2 tab daily for 2 days PREDNISONE 20 MG ORAL T ABLET 639268 PREDNISONE Inactive ZITHROMAX 250 MG ORAL TABLET 2 po today, then 1 po q days 2-5 20 14/09/04 ZITHROMAX 250 MG ORAL TABLET 919635 AZITHROMYCIN [place] [facility] AMOXICILLIN 500 MG ORAL CAPSULE 1 cap by mouth three times a day AMOXICILLIN 500 MG ORAL CAPSULE 436350 AMOXICILLIN Inactive TERBINAFINE HCL 250 MG ORAL TABLET 1 qDay for nail fungus 7 TERBINAFINE HCL 250 MG ORAL TABLET 536490 TERBINAFINE HCL Inact nael AUGMENTIN 875-125 MG ORAL TABLET 1 po BID x 10 days 16/03/22 AUGMENTIN 875-125 MG ORAL TABLET AMOXICILLIN-POT CLAVULANATE Inactive PREDNISONE 20 MG ORAL TABLET 2 po qd x 5 days PREDNISONE 20 MG ORAL TABLET 748067 PREDNISONE Inactive AZITHROMYCIN 250 MG ORAL TABLET 2 po qd x 1 day, then 1 po q d x 4 days AZITHROMYCIN 250 MG ORAL TABLET 340253 AZITHROMY GIOVANNI Inactive PREDNISONE 50 MG ORAL TABLET Take 50 mg dialy for 6 day s 7 PREDNISONE 50 MG ORAL TABLET 332138 PREDNISONE Inactive AUGMENTIN 875-125 MG ORAL TABLET 1 po BID x 10 days 20 18/04/16 AUGMENTIN 875-125 MG ORAL TABLET AMOXICILLIN-POT CLAVULANATE Inactive DOXYCYCLINE HYCLATE 100 MG ORAL CAPSULE 1 cap by mouth twice latasha ly DOXYCYCLINE HYCLATE 100 MG ORAL CAPSULE 1962272 DOXYCYCL INE HYCLATE Inactive PREDNISONE 20 MG ORAL TABLET Take 2 tabs day 1 and 2 and 1 t ab days 3 and 4 PREDNISONE 20 MG ORAL TABLET 244097 PREDNISONE Inactive AMOXICILLIN 500 MG ORAL CAPSULE 1 cap by mouth twice daily 10/21 AMOXICILLIN 500 MG ORAL CAPSULE 224922 AMOXICILLIN Inactive TRIAMCINOLONE ACETONIDE 0.1 % EXTERNAL OINTMENT Apply to affected areas TID PRN Rash/Itching for up 2 weeks TRIAMCINOLON E ACETONIDE 0.1 % EXTERNAL OINTMENT 2941958 TRIAMCINOLONE ACETONIDE Inactive ACYCLOVIR 800 MG ORAL TABLET 1 po 5 times daily x 7 days ACYCLOVIR 800 MG ORAL TABLET 109208 ACYCLOVIR Inactive Vital Signs Date Name Value [...] pressure, diastolic, repeated by physician 83 BP sriniavsan blood pressure, diastolic 83 mm[Hg] BP srinivasan [...] - Chem istry sodium, serum 139 mmol/L 190-047 4229/10/12 potassium, serum 3.8 mmol/L 3.5-5.2 chloride, serum [...] negative Encounters Code Encounter Date Provider Facility CPT-81592 Level 3 Est. Patient 14:16:41 CDT David Tin miguele [facility] CPT-80684 Level 3 Est. Patient 13:57:55 CDT David Tin miguele [facility] CPT-37468 Level 3 Est. Patient 16:08:07 CDT David Tin miguele [facility] CPT-31992 Level 3 Est. Patient 16:53:54 CDT May haas MD [facility] CPT-73187 [id number] Vst-Est Level IV 08:41:08 Jadon Santos MD [facility] CPT-22283 Level 3 Est. Patient 09:46:49 PROFESSIONAL PROGRAMMER ANALYST David lion [facility] CPT-86610 [id number] Vst-Est Level III 11:12:16 CDT Yanet Bess DO [facility] CPT-46329 Level 3 Est. Patient 11:34:49 PROFESSIONAL PROGRAMMER ANALYST Perez Mora MD [facility] CPT-21100 Level 4 Est. Patient 09:51:32 PROFESSIONAL PROGRAMMER ANALYST Carlton rich MD [facility] CPT-27415 Level 3 Est. Patient 10:26:00 PROFESSIONAL PROGRAMMER ANALYST Elise Are ll [facility] CPT-65885 Level 3 Est. Patient 13:35:41 PROFESSIONAL PROGRAMMER ANALYST Carlton rich MD [facility] CPT-47407 Level 3 Est. Patient 10:03:52 PROFESSIONAL PROGRAMMER ANALYST Carlton rich MD [facility] CPT-19099 Level 3 Est. Patient 12:17:50 CDT Hugo Restrepo MD [facility]-46351 Level 3 Est. Patient 13:42:38 CDT Elise Are [facility] CPT-66823 Level 3 Est. Patient 13:23:51 CDT Diya cobian [facility] CPT-88574 Level 3 Est. Patient 14:22:19 PROFESSIONAL PROGRAMMER ANALYST Diya cobian [facility] CPT-15705 Level 3 Est. Patient 10:11:46 CDT Carlton rich MD [facility] CPT-08615 Level 3 Est. Patient 17:29:43 CDT Elise Are [facility] CPT-68191 Level 3 Est. Patient 11:58:06 CDT Elise Are [facility] CPT-73891 Level 4 Est. Patient 14:36:51 CDT Carlton rich MD [facility] CPT-39212 Level 3 Est. Patient 18:16:00 PROFESSIONAL PROGRAMMER ANALYST Blaine HERNANDEZ [facility] CPT-40211 Level 3 Est. Patient 09:45:49 PROFESSIONAL PROGRAMMER ANALYST Carlton rich MD [facility] CPT-98390 Level 3 Est. Patient 13:19:20 CDT Carlton rich MD [facility] CPT-96234 Level 3 Est. Patient 13:06:43 CDT Ridge tam DO [facility] CPT-42829 Level 3 Est. Patient 10:03:07 CDT Perez Mora MD [facility]-94110 Level 3 Est. Patient 19:50:35 PROFESSIONAL PROGRAMMER ANALYST Carlton rich MD [facility]-84978 Level 4 Est. Patient 18:05:01 PROFESSIONAL PROGRAMMER ANALYST Carlton rich MD [facility] CPT-28786 Level 3 Est. Patient 10:45:55 PROFESSIONAL PROGRAMMER ANALYST Hugo Restrepo MD [facility]-17086 Level 3 Est. Patient 14:12:49 CDT Griffin HERNANDEZ [facility]-23058 Level 3 Est. Patient 17:37:24 CDT Carlton rich MD [facility]-07330 Level 3 Est. Patient 16:51:54 CDT Carlton rich MD [facility]-77855 Level 3 Est. Patient 12:18:11 CDT Hugo Restrepo MD [facility]-56586 Level 3 Est. Patient 11:30:25 CDT Marcy crisostomo MD PhD [facility]-26479 Level 3 Est. Patient 12:00:47 PROFESSIONAL PROGRAMMER ANALYST Carlton rich MD [facility] CPT-33946 Level 3 Est. Patient 16:31:06 PROFESSIONAL PROGRAMMER ANALYST Carlton rich MD [facility]-80676 Level 3 Est. Patient 16:23:24 PROFESSIONAL PROGRAMMER ANALYST Ridge tam DO [facility] CPT-89073 Level 3 Est. Patient 12:34:12 CDT Carlton rich MD [facility]-84279 Level 2 Est. Patient 15:43:33 CDT Robi armstrong MD [facility] CPT-54051 Level 4 Est. Patient 14:04:44 CDT Carlton rich MD [facility] CPT-53009 Level 3 Est. Patient 05:47:59 CDT Ridge tam DO [facility] CPT-28098 Level 3 Est. Patient 13:12:53 PROFESSIONAL PROGRAMMER ANALYST Carlton rich MD [facility] CPT-66952 Level 3 Est. Patient 14:26:53 CDT Hugo Restrepo MD [facility] Procedures Code Procedure Name Date Entry Date Standard Desc ription CPT-62127 Venipuncture Draw Fee 15:53:34 CDT CPT-000 Give Appropriate Flu Vaccine 14:14:31 CDT 2 CPT-J1040 Depo Medrol 80 mg (Methyl Prednisolone A cetate) 10:42:44 CDT CPT-J1100 Decadron 8mg (Dexamethasone) 10:42:44 CDT 2 CPT-J0696 Rocephin 1gm Inj Solr 14:32:13 CDT CPT-J1020 Depo Medrol 60 mg (Methyl Prednisolone A cetate) 14:32:13 CDT CPT-J1100 Decadron 6mg (Dexamethasone) 14:32:13 CDT 2 CPT-59750 Hip bilat min 2V w AP pelvis 13:16:20 CDT 2 CPT-88152 Pelvis only 13:07:33 CDT CPT-49966 Spec Collection and Handling Fee 11:25:12 C DT CPT-15989 Fluzone Quadrivalent Intramuscular Suspe nsion 0.5 ML 14:31:55 CDT CPT-91965 Abx/Therapy Injection 13:28:47 PROFESSIONAL PROGRAMMER ANALYST CPT-J2930 Solu Medrol 125 mg (Methyl Prednisolone Sodium Succinate) 12:00:47 PROFESSIONAL PROGRAMMER ANALYST CPT-69873 Venipuncture Draw Fee 11:33:31 CDT CPT-45374 EKG Trac and Interp 11:21:09 CDT CPT-49272 Chest 2V Frontal and Lat 11:21:09 CDT 12/15 CPT-80755 Venipuncture Draw Fee 08:02:34 CDT CPT-78247 Chest 2V Frontal and Lat 05:47:59 CDT 06/05
--- OUTSIDE RECORDS SUMMARY | 2019-10-08 10:01 | XMS REPORT | Clinical Summary ---
[...] URI 465.9 Inactive Ridge Bess DO [place] upper respiratory infections of unspecified site Body Mass Index 35.0-35.9 Adult Refinement 2017 Ridge Bess DO Body Mass Index 35.0-35.9, adult BMI 34-34.9 Refinement Cherelle Trores RN Body Mass Index 35.0-35.9, adult BMI 35-35.9 Refinement David Marianneamisha RICEN Body Mass Index 35.0-35.9, adult BMI 34-34.9 Refinement May Vivar MD Body Mass Index 35.0-35.9, adult BMI 35-35.9 Refinement David Marianne GUTTER HANGER Body Mass Index 35.0-35.9, adult BMI 33-33.9 Active David Marianne GUTTER HANGER Body Mass Index 35.0-35.9, adult Upper respiratory infection, viral 465.9 Active 2 Perez Mora MD Acute upper respiratory infections of un specified site Obesity Class I (BMI 30-34.9) Refinement Jose Torres RN Obesity, unspecified Morbid obesity due to excess [facility] Marianneamisha RICEN Obesity, [...] nonspecific skin eruption 782.1 Active David Marianne GUTTER HANGER Rash and other nonspecific skin eruption Pharyngitis, acute / sore throat 462 Active 201 12/06/23 David Marianne GUTTER HANGER Acute pharyngitis Shingles 053.9 Active David Marianne GUTTER HANGER Herpes zoster without mention of complication BRONCHITIS [...] bid spari ngly to rash TRIAMCINOLONE ACETONIDE 81422613233 No Longer Active Carlton Hu MD Active TYLENOL WITH CODEINE #3 300-30 MG ORAL TABLET ACETAMINOPHEN-CODEINE 37670672499 No Longer Active Carlton Hu MD Active TYLENOL WITH CODEINE #3 300-30 MG ORAL TABLET 1-2 po q6hr PRN Pa in ACETAMINOPHEN-CODEINE 09674756423 No Longer Active David Lopes AP RN Active ACYCLOVIR 800 MG ORAL TABLET 1 po 5 times daily x 7 days ACYCLOVIR 19205938446 No Longer Active David Marianne GUTTER HANGER Active TOPAMAX 100 MG ORAL TABLET 1 by mouth twice daily TOPIRAMATE 98108023485 Active Columba Raida Active TRIAMCINOLONE ACETONIDE 0.1 % EXTERNAL OINTMENT Apply to affected areas TID PRN Rash/Itching for up 2 weeks TRIAMCINOLONE ACETON KAYLA 69369463684 No Longer Active David Marianne GUTTER HANGER Active AMOXICILLIN 500 MG ORAL CAPSULE 1 cap by mouth twice daily 10/21 AMOXICILLIN 01368847372 No Longer Active David Marianne GUTTER HANGER Active ELMIRON 100 MG ORAL CAPSULE 2 capsules in the morning and 1 capsule at night PENTOSAN POLYSULFATE SODIUM 53560266128 Active Cinthia H art DYNAMITE SHOOTER Active CYMBALTA 30 MG ORAL CAPSULE DELAYED RELEASE PARTICLES 1 cap by mouth daily for depression DULOXETINE HCL 21457205850 No Longer Active Carlton Hu MD Active CYMBALTA 60 MG ORAL CAPSULE DELAYED RELEASE PARTICLES 1 cap by mouth daily for mood and pain DULOXETINE HCL 00413097741 Active Carlton Hu MD Active TUSSIONEX PENNKINETIC ER 10-8 MG/5ML ORAL SUSPENSION E XTENDED RELEASE 5ml po q12hr PRN Cough HYDROCOD POLST-CHLORPHEN POLST 01759485120 Active Carlton Hu MD Active PREDNISONE 20 MG ORAL TABLET Take 2 tabs day 1 and 2 and 1 t ab days 3 and 4 PREDNISONE 84385529286 No Longer Active David Marianne GUTTER HANGER Active DOXYCYCLINE HYCLATE 100 MG ORAL CAPSULE 1 cap by mouth twice latasha ly DOXYCYCLINE HYCLATE 71525561014 No Longer Active David Marianne GUTTER HANGER Active TOPAMAX 100 MG ORAL TABLET Take 1 tablet po bid TOPIRAMATE 13501479953 No Longer Active David Marianne GUTTER HANGER Active TUSSIONEX PENNKINETIC ER 10-8 MG/5ML ORAL SUSPENSION E XTENDED RELEASE 5ml po q12hr PRN Cough HYDROCOD POLST-CHLORPHEN POLST 5 4487699256 No Longer Active David Marianne GUTTER HANGER Active AUGMENTIN 875-125 MG ORAL TABLET 1 po BID x 10 days 20 18/04/16 AMOXICILLIN-POT CLAVULANATE 83653812229 No Longer Active David Marianne GUTTER HANGER Active PREDNISONE 50 MG ORAL TABLET Take 50 mg dialy for 6 day s 7 PREDNISONE 22687397214 No Longer Active David Marianne GUTTER HANGER Active TUSSIONEX PENNKINETIC ER 10-8 MG/5ML ORAL SUSPENSION E XTENDED RELEASE 5ml po q12hr PRN Cough HYDROCOD POLST-CHLORPHEN POLST 5 8041909723 No Longer Active Cherelle Torres RN Active PREDNISONE 20 MG ORAL TABLET two tabs by mouth today, then one tab by mouth days two and three and four PREDNISONE 65334368145 No Lo nger Active Cherelle Torres RN Active AZITHROMYCIN 250 MG ORAL TABLET 2 po qd x 1 day, then 1 po q d x 4 days AZITHROMYCIN 80399198501 No Longer Active Ridge Bess DO Active PREDNISONE 20 MG ORAL TABLET 2 po qd x 5 days P REDNISONE 82166664438 No Longer Active Perez Mora MD Active PROAIR HFA 108 (90 BASE) MCG/ACT INHALATION AEROSOL SO LUTION 2 puffs four times a day as needed ALBUTEROL SULFATE 52743810520 No Long er Active Becky FUENTES Active ASPIRIN 81 MG ORAL TABLET 1 po qd ASPIRIN 00273438997 Active Carlton Hu MD Active PREDNISONE 20 MG ORAL TABLET 1 tab twice daily for 3 d ay, then one daily for three days PREDNISONE 35370294146 No Longer Active Carlton Hu MD Active AUGMENTIN 875-125 MG ORAL TABLET 1 po BID x 10 days 16/03/22 AMOXICILLIN-POT CLAVULANATE 55505834019 No Longer Active Elise Garcia APRN Active TERBINAFINE HCL 250 MG ORAL TABLET 1 qDay for nail fungus 7 TERBINAFINE HCL 29187879557 No Longer Active Carlton Hu MD A ctive AMOXICILLIN 500 MG ORAL CAPSULE 1 cap by mouth three times a day AMOXICILLIN 55318181982 No Longer Active Carlton Hu MD Active ELMIRON 100 MG ORAL CAPSULE 2 tablets in the am and 1 tablet at hs PENTOSAN POLYSULFATE SODIUM 44892598621 No Longer Active Robert Hu MD Active MUCINEX D 60-600 MG ORAL TABLET EXTENDED RELEASE 12 HOUR 1 t ab po q am PSEUDOEPHEDRINE-GUAIFENESIN 44717369269 No Longer Act neal Carlton Hu MD Active MUCINEX DM MAXIMUM STRENGTH 60-1200 MG ORAL TABLET EXT ENDED RELEASE 12 HOUR 1 tab po q am DEXTROMETHORPHAN-GUAIFENESIN 74024291039 No Longer Active Carlton Hu MD Active TUSSIONEX PENNKINETIC ER 10-8 MG/5ML ORAL SUSPENSION E XTENDED RELEASE 5ml po q12hr PRN Cough HYDROCOD POLST-CHLORPHEN POLST 5 8391621154 No Longer Active Carlton Hu MD Active POTASSIUM CHLORIDE ER 20 MEQ ORAL TABLET EXTENDED RELE ASE Take 1 by mouth 4 times daily for 7 days POTASSIUM CHLORIDE 97955424678 No Longer Active Carlton Hu MD Active ZITHROMAX 250 MG ORAL TABLET 2 po today, then 1 po q days 2-5 20 14/09/04 AZITHROMYCIN 58840806512 No Longer Active Elise Garcia APRN Active TUSSIONEX PENNKINETIC ER 10-8 MG/5ML ORAL SUSPENSION E XTENDED RELEASE 5 ml twice a day as needed for cough HYDROCOD POLST-CHLORPH EN POLST 39395442103 No Longer Active Elise Garcia APRN Active MONTELUKAST SODIUM 10 MG ORAL TABLET 1 po daily for Allergy MONTELUKAST SODIUM 21932936073 Active Carlton Hu MD Ac tive TUSSIONEX PENNKINETIC ER 10-8 MG/5ML ORAL SUSPENSION E XTENDED RELEASE 5ml po q12hr PRN Cough HYDROCOD POLST-CHLORPHEN POLST 5 5015287348 No Longer Active Hugo Restrepo MD Active GABAPENTIN 100 MG ORAL CAPSULE 1 po BID for fibromyalgia GABAPENTIN 37686476271 Active ALFREDO Holly Active LYRICA 100 MG ORAL CAPSULE Take 1 tab po BID for fibromyalgia 20 11/08/21 PREGABALIN 75131693453 No Longer Active Elise Garcia APRN A ctive PREDNISONE 20 MG ORAL TABLET 2 tabs daily for 3 days, 1 tab daily for 3 days, 1/2 tab daily for 2 days PREDNISONE 86514276406 No Longer Active Diya De Guzman APRN Active TUSSIONEX PENNKINETIC ER 10-8 MG/5ML ORAL SUSPENSION E XTENDED RELEASE 5 mL PO q 12 hrs PRN cough HYDROCOD POLST-CHLORPHEN POLST 571342 21279 No Longer Active Diya De Guzman APRN Active FLUTICASONE PROPIONATE 50 MCG/ACT NASAL SUSPENSION 2 s prays each nostril daily until bottle is empty FLUTICASONE PROPIONATE 621782038 99 No Longer Active Jillina Cesarl GUTTER HANGER Active ASMANEX 60 METERED DOSES 220 MCG/INH INHALATION AEROSO L POWDER BREATH ACTIVATED 1 puff bid with rinse after MOMETASONE FUROATE 1251579 4102 No Longer Active Diya De Guzman APRN Active ZITHROMAX Z-REYNA 250 MG ORAL TABLET 2 today, then 1 daily for 4 d ays AZITHROMYCIN 89723707015 No Longer Active Elise Garcia APRN Active TUSSIONEX PENNKINETIC ER 10-8 MG/5ML ORAL SUSPENSION E XTENDED RELEASE 5ml po q12hr PRN Cough HYDROCOD POLST-CHLORPHEN POLST 5 9016942381 No Longer Active Elise Garcia APRN Active PREDNISONE 20 MG ORAL TABLET 2 tabs daily for 3 days, 1 tab daily for 3 days, 1/2 tab daily for 2 days PREDNISONE 33007516055 No Longer Active Diya De Guzman APRN Active AMOXICILLIN 500 MG ORAL CAPSULE 2 po BID x 10 days 201 09/29/08 AMOXICILLIN 76358021884 No Longer Active Diya De Guzman APRN Act nael SINGULAIR 10 MG ORAL TABLET 1 po qday for allergies 20 14/01/12 MONTELUKAST SODIUM 27767568906 No Longer Active Carlton Hu MD Active LEVAQUIN 500 MG ORAL TABLET 1 tablet by mouth daily 20 13/09/24 LEVOFLOXACIN 77045039892 No Longer Active Carlton Hu MD Acti ve FLUTICASONE PROPIONATE 50 MCG/ACT NASAL SUSPENSION 2 s prays each nostril daily for 2 weeks, then 1 spray each nostril daily. FLUTICASONE PROPIONATE 45667721245 Active Carlton Hu MD Active ZITHROMAX 250 MG ORAL TABLET 2 po today, then 1 po q days 2-5 20 13/08/10 AZITHROMYCIN 18441104841 No Longer Active Elise Garcia APRN Active XANAX 0.5 MG ORAL TABLET one tablet by mouth daily prn anxiety 2015 ALPRAZOLAM 61923165248 Active ALFREDO Holly Active CEFDINIR 300 MG ORAL CAPSULE 1 po BID x 10 days CEFDINIR 90827217912 No Longer Active Carlton Hu MD Active ZOCOR 40 MG ORAL TABLET 1 tab by mouth daily SI MVASTATIN 19673362115 No Longer Active Carlton Hu MD Active CYCLOBENZAPRINE HCL 10 MG ORAL TABLET 1 tablet by mouth BID prn had pain CYCLOBENZAPRINE HCL 96436577159 No Longer Active Jayden Hu MD Active LEVOFLOXACIN 500 MG ORAL TABLET 1 tab PO daily x 10 days LEVOFLOXACIN 09642264988 No Longer Active Carlton Hu MD Acti ve PREDNISONE 20 MG ORAL TABLET 3 tab PO qd x 2d, 2 tab P O qd x 2d, 1 tab PO qd x 2d, 1/2 tab PO qd x 2d PREDNISONE 00077698049 No Lo nger Active Carlton Hu MD Active FLUTICASONE PROPIONATE 50 MCG/ACT NASAL SUSPENSION 1 t o 2 sprays each nostril daily FLUTICASONE PROPIONATE 93648320342 No Longer Ac tive Blaine HERNANDEZ Active CHERATUSSIN AC 100-10 MG/5ML ORAL SYRUP 1 tsp by mouth every 4 hours as needed for cough GUAIFENESIN-CODEINE 05800314425 No Longe r Active Blaine HERNANDEZ Active PROMETHAZINE-CODEINE 6.25-10 MG/5ML ORAL SYRUP 1 tsp b y mouth every 6 hours if needed for cough PROMETHAZINE-CODEINE 32194097514 No Longer Active Blaine HERNANDEZ Active CHERATUSSIN AC 100-10 MG/5ML ORAL SYRUP 1 tsp by mouth every 4 hours as needed for cough GUAIFENESIN-CODEINE 39755193256 No Longe r Active Blaine HERNANDEZ Active ZITHROMAX Z-REYNA 250 MG ORAL TABLET 2 today, then 1 daily for 4 d ays AZITHROMYCIN 10928703225 No Longer Active Columba Raida Act nael ZITHROMAX 250 MG ORAL TABLET 2 po today, then 1 po q days 2-5 20 14/03/21 AZITHROMYCIN 78679568480 No Longer Active Carlton Hu MD Active ZITHROMAX Z-REYNA 250 MG ORAL TABLET 2 today, then 1 daily for 4 d ays AZITHROMYCIN 92502981912 No Longer Active Columba Raida Act nael AUGMENTIN 875-125 MG ORAL TABLET 1 po BID x 10 days 13/01/20 AMOXICILLIN-POT CLAVULANATE 15740586676 No Longer Active Diya De Guzman APRN Active ZITHROMAX 250 MG ORAL TABLET 2 po today, then 1 po q days 2-5 20 12/08/14 AZITHROMYCIN 54300822609 No Longer Active Carlton Hu MD Active TRAMADOL HCL 50 MG ORAL TABLET 1 po tid with ES Tylenol TRAMADOL HCL 24166672880 Active ALFREDO Holly Active PREMARIN 0.625 MG ORAL TABLET TAKE 1 TAB BY MOUTH DAILY ESTROGENS CONJUGATED 29802929810 No Longer Active Ridge Bess DO A ctive CYMBALTA 30 MG ORAL CAPSULE DELAYED RELEASE PARTICLES 1 cap by mouth daily DULOXETINE HCL 91624923407 No Longer Active Ridge tam DO Active AMOXICILLIN 500 MG ORAL CAPSULE 1 tab by mouth 3 times daily x 10 days AMOXICILLIN 35652420306 No Longer Active Carlton bustamante MD Active AMOXICILLIN 500 MG ORAL CAPSULE 1 tab by mouth 3 times daily x 10 days AMOXICILLIN 31586339534 No Longer Active Carlton bustamante MD Active PROMETHAZINE-CODEINE 6.25-10 MG/5ML ORAL SYRUP 1 tsp b y mouth every 8 hours prn cough PROMETHAZINE-CODEINE 31345906629 No Longer Acti ve Carlton Hu MD Active MEDROL 4 MG ORAL TABLET THERAPY PACK 6 pills x 1 day, then 5 pills x 1 day then 4 pills x 1 day, then 3 pills x 1 day, then 2 pills x 1 day, then 1 pill x 1 day, then stop METHYLPREDNISOLONE 98780173820 No Long er Active Perez Mora MD Active AZITHROMYCIN 250 MG ORAL TABLET 2 po qd x 1 day, then 1 po q d x 4 days AZITHROMYCIN 83262506835 No Longer Active Perez Ambriz MD Active SYMBICORT 160-4.5 MCG/ACT INHALATION AEROSOL 2 puffs bid wit h rinse after BUDESONIDE-FORMOTEROL FUMARATE 27744839459 N o Longer Active Perez Mora MD Active LYRICA 75 MG ORAL CAPSULE TAKE 1 CAPSULE BY MOUTH TWICE DAILY PREGABALIN 83837630231 No Longer Active Carlton Hu MD Acti ve TOPAMAX 25 MG ORAL TABLET 1 qHS x 1 week, then 1 BID x 1 week, then 1 qAM and 2 qHS x 1 week, then 2 BID (migraine prevention) T OPIRAMATE 05118163126 No Longer Active Jerica FUENTES Active TOPAMAX 50 MG ORAL TABLET take 1 tab po BID for migraines. 07/02 TOPIRAMATE 33369707538 No Longer Active Jerica FUENTES Active TRIAMCINOLONE ACETONIDE 0.1 % EXTERNAL CREAM apply three roger es daily prn rash TRIAMCINOLONE ACETONIDE 44389194620 No Longer Active Carlton Hu MD Active PAXIL 40 MG ORAL TABLET take 1 tab po qday for depression 0 PAROXETINE HCL 81720860605 Active Carlton Hu MD Active CHERATUSSIN AC 100-10 MG/5ML ORAL SYRUP 5ml po q6hr PRN Cough 20 13/04/14 GUAIFENESIN-CODEINE 67149347943 No Longer Active Carlton Hu MD Active MEDROL 4 MG ORAL TABLET THERAPY PACK 6 tabs on day 1, 5 tabs on day 2, 4 tabs on day 3, 3 tabs on day 4, 2 tabs on day 5, 1 tab on day 6 2013 METHYLPREDNISOLONE 72161997963 No Longer Active Perez Mora MD Active AZITHROMYCIN 250 MG ORAL TABLET 2 po qd x 1 day, then 1 po q d x 4 days AZITHROMYCIN 28702993800 No Longer Active Perez Ambriz MD Active PROPRANOLOL HCL 60 MG ORAL TABLET 1 PO Q D PROPRANOLOL HCL 68607854241 No Longer Active Perez Mora MD Activ e CHERATUSSIN AC 100-10 MG/5ML ORAL SYRUP take one tsp po Q 6h ours prn cough GUAIFENESIN-CODEINE 69327301085 No Longer Active Zia Mora MD Active AUGMENTIN 875-125 MG ORAL TABLET 1 tab by mouth twice daily with food AMOXICILLIN-POT CLAVULANATE 10272828197 No Longer Act nael Perez Mora MD Active CHERATUSSIN AC 100-10 MG/5ML ORAL SYRUP 1 tsp by mouth every 4 hours as needed for cough GUAIFENESIN-CODEINE 63767276694 No Longe r Active Hugo Restrepo MD Active ACETAMINOPHEN-CODEINE #3 300-30 MG ORAL TABLET 1 PO Q 4-6 HRS MA N PAIN ACETAMINOPHEN-CODEINE 80815943061 No Longer Active Hugo Restrepo MD Active LEVAQUIN 500 MG ORAL TABLET take one po QD LEVO FLOXACIN 81347946473 No Longer Active Griffin HERNANDEZ Active PREDNISONE 20 MG ORAL TABLET Take 3 tabs daily for 3 d ays, 2 tabs daily for 3 days, 1 tab daily for 3 days, 1/2 tab daily for 3 days 11/07 PREDNISONE 91489487177 No Longer Active Carlton Hu MD Acti ve AVELOX 400 MG ORAL TABLET 1 tab by mouth daily MOXIFLOXACIN HCL 42430175436 No Longer Active Carlton Hu MD Active CHERATUSSIN AC 100-10 MG/5ML ORAL SYRUP 1 tsp by mouth every 4 hours as needed for cough GUAIFENESIN-CODEINE 50744318705 No Longe r Active Hugo Restrepo MD Active AVELOX 400 MG ORAL TABLET 1 tab by mouth daily MOXIFLOXACIN HCL 05665309389 No Longer Active Marcy De La Rosa MD PhD Active TERBINAFINE HCL 250 MG ORAL TABLET 1 qDay T ERBINAFINE HCL 63433830041 No Longer Active Marcy De La oRsa MD PhD Active CHERATUSSIN AC 100-10 MG/5ML ORAL SYRUP 1 tsp by mouth every 4 hours as needed for cough GUAIFENESIN-CODEINE 72476935101 No Longe r Active Marcy De La Rosa MD PhD Active AVELOX 400 MG ORAL TABLET 1 tab by mouth daily MOXIFLOXACIN HCL 65352902226 No Longer Active Marcy De La Rosa MD PhD Active HYDROCODONE-ACETAMINOPHEN 5-325 MG ORAL TABLET 1 po q 6hr PRN co ugh HYDROCODONE-ACETAMINOPHEN 68924891736 No Longer Active Marcy De La Rosa MD PhD Active PREDNISONE 20 MG ORAL TABLET 2 tabs daily for 3 days, 1 tab daily for 3 days, 1/2 tab daily for 2 days PREDNISONE 90990660314 No Longer Active Carlton Hu MD Active CEFDINIR 300 MG ORAL CAPSULE by mouth twice a day 2011 CEFDINIR 05214547861 No Longer Active Carlton Hu MD Acti ve HYDROCHLOROTHIAZIDE 25 MG ORAL TABLET 1 TAB PO DAILY HYDROCHLOROTHIAZIDE 45150392077 Active Carlton Hu MD A ctive ACETAMINOPHEN-CODEINE #3 300-30 MG ORAL TABLET 1 tablet po q 4-6 hrs prn pain ACETAMINOPHEN-CODEINE 15444714251 No Longer Active Ridge Bess DO Active ZITHROMAX 250 MG ORAL TABLET 2 po today, then 1 po q days 2-5 20 03/07/07 AZITHROMYCIN 50954653930 No Longer Active Carlton Hu MD Active CHERATUSSIN AC 100-10 MG/5ML ORAL SYRUP take 1 tsp po q4-6 h ours prn cough GUAIFENESIN-CODEINE 56871509449 No Longer Active Jayden Hu MD Active ACETAMINOPHEN-CODEINE #3 300-30 MG ORAL TABLET 1 PO Q 4-6 HR PRN PAIN ACETAMINOPHEN-CODEINE 89768649971 No Longer Active Arnol Hu MD Active LORTAB 7.5-500 MG/15ML ORAL ELIXIR 7.5 ml po q 4 hour prn cough HYDROCODONE-ACETAMINOPHEN 60672327399 No Longer Active Carlton Hu MD Active PREDNISONE 20 MG ORAL TABLET 1 po bid 3 days, then 1 po q day 3 days PREDNISONE 27567713503 No Longer Active Carlton Hu MD Active CEFDINIR 300 MG ORAL CAPSULE by mouth twice a day 2011 CEFDINIR 47490368886 No Longer Active Carlton Hu MD Acti ve CEFDINIR 300 MG ORAL CAPSULE by mouth twice a day 2010 CEFDINIR 25899284071 No Longer Active Carlton Hu MD Acti ve CEFDINIR 300 MG ORAL CAPSULE by mouth twice a day 2010 CEFDINIR 10346481871 No Longer Active Carlton Hu MD Acti ve TESSALON PERLES 100 MG ORAL CAPSULE 1 tablet by mouth 3 times daily as needed for cough BENZONATATE 12949091184 No Longer Active Carlton Hu MD Active CEFDINIR 300 MG ORAL CAPSULE by mouth twice a day 2010 CEFDINIR 51139026246 No Longer Active Carlton Hu MD Acti ve ZITHROMAX Z-REYNA 250 MG ORAL TABLET 2 today, then 1 daily for 4 d ays AZITHROMYCIN 29174818689 No Longer Active Hugo Restrepo MD Active TESSALON PERLES 100 MG ORAL CAPSULE 1 tablet by mouth 3 times daily as needed for cough TESSALON PERLES 100 MG ORAL CAPSULE 92559 7 BENZONATATE Inactive PREDNISONE 20 MG ORAL TABLET 1 po bid 3 days, then 1 po q day 3 days PREDNISONE 20 MG ORAL TABLET 730535 PREDNISONE Greer ctive LORTAB 7.5-500 MG/15ML ORAL ELIXIR 7.5 ml po q 4 hour prn cough LORTAB 7.5-500 MG/15ML ORAL ELIXIR HYDROCODONE-A CETAMINOPHEN Inactive ACETAMINOPHEN-CODEINE #3 300-30 MG ORAL TABLET 1 PO Q 4-6 HR PRN PAIN ACETAMINOPHEN-CODEINE #3 300-30 MG ORAL TABLET 9 05783 ACETAMINOPHEN-CODEINE Inactive CHERATUSSIN AC 100-10 MG/5ML ORAL SYRUP take 1 tsp po q4-6 h ours prn cough CHERATUSSIN AC 100-10 MG/5ML ORAL SYRUP 072505 GUAIFENESIN-CODEINE Inactive ACETAMINOPHEN-CODEINE #3 300-30 MG ORAL TABLET 1 tablet po q 4-6 hrs prn pain ACETAMINOPHEN-CODEINE #3 300-30 MG ORAL TABLET 903691 ACETAMINOPHEN-CODEINE Inactive HYDROCODONE-ACETAMINOPHEN 5-325 MG ORAL TABLET 1 po q 6hr PRN co ugh HYDROCODONE-ACETAMINOPHEN 5-325 MG ORAL TABLET 768054 HYDROCODONE-ACETAMINOPHEN Inactive AVELOX 400 MG ORAL TABLET 1 tab by mouth daily AVELOX 400 MG ORAL TABLET MOXIFLOXACIN HCL Inactive CHERATUSSIN AC 100-10 MG/5ML ORAL SYRUP 1 tsp by mouth every 4 hours as needed for cough CHERATUSSIN AC 100-10 MG/5ML ORAL SYRUP 9 81258 GUAIFENESIN-CODEINE Inactive TERBINAFINE HCL 250 MG ORAL TABLET 1 qDay 07/08 TERBINAFINE HCL 250 MG ORAL TABLET 751252 TERBINAFINE HCL Inactive CHERATUSSIN AC 100-10 MG/5ML ORAL SYRUP 1 tsp by mouth every 4 hours as needed for cough CHERATUSSIN AC 100-10 MG/5ML ORAL SYRUP 9 54015 GUAIFENESIN-CODEINE Inactive ACETAMINOPHEN-CODEINE #3 300-30 MG ORAL TABLET 1 PO Q 4-6 HRS MA N PAIN ACETAMINOPHEN-CODEINE #3 300-30 MG ORAL TABLET 653283 ACETAMINOPHEN-CODEINE Inactive CHERATUSSIN AC 100-10 MG/5ML ORAL SYRUP 1 tsp by mouth every 4 hours as needed for cough CHERATUSSIN AC 100-10 MG/5ML ORAL SYRUP 9 20243 GUAIFENESIN-CODEINE Inactive AUGMENTIN 875-125 MG ORAL TABLET 1 tab by mouth twice daily with food AUGMENTIN 875-125 MG ORAL TABLET AMOXICIL MADELINE-POT CLAVULANATE Inactive CHERATUSSIN AC 100-10 MG/5ML ORAL SYRUP take one tsp po Q 6h ours prn cough CHERATUSSIN AC 100-10 MG/5ML ORAL SYRUP 389941 GUAIFENESIN-CODEINE Inactive PROPRANOLOL HCL 60 MG ORAL TABLET 1 PO Q D PROPRANOLOL HCL 60 MG ORAL TABLET 791276 PROPRANOLOL HCL Inactive TOPAMAX 50 MG ORAL TABLET take 1 tab po BID for migraines. 07/02 TOPAMAX 50 MG ORAL TABLET 784904 TOPIRAMATE Inacti ve TOPAMAX 25 MG ORAL TABLET 1 qHS x 1 week, then 1 BID x 1 week, then 1 qAM and 2 qHS x 1 week, then 2 BID (migraine prevention) TOPAMAX 25 MG ORAL TABLET 734780 TOPIRAMATE Inactive LYRICA 75 MG ORAL CAPSULE TAKE 1 CAPSULE BY MOUTH TWICE DAILY LYRICA 75 MG ORAL CAPSULE 366580 PREGABALIN Inactive SYMBICORT 160-4.5 MCG/ACT INHALATION AEROSOL 2 puffs bid wit h rinse after SYMBICORT 160-4.5 MCG/ACT INHALATION AEROSOL BUDESONIDE- FORMOTEROL FUMARATE Inactive PROMETHAZINE-CODEINE 6.25-10 MG/5ML ORAL SYRUP 1 tsp b y mouth every 8 hours prn cough PROMETHAZINE-CODEINE 6.25-10 MG/ 5ML ORAL SYRUP 784886 PROMETHAZINE-CODEINE Inactive CYMBALTA 30 MG ORAL CAPSULE DELAYED RELEASE PARTICLES 1 cap by mouth daily CYMBALTA 30 MG ORAL CAPSULE DELAYED RELE ASE PARTICLES 480734 DULOXETINE HCL Inactive PREMARIN 0.625 MG ORAL TABLET TAKE 1 TAB BY MOUTH DAILY PREMARIN 0.625 MG ORAL TABLET ESTROGENS CONJUGATED Inactive CHERATUSSIN AC 100-10 MG/5ML ORAL SYRUP 1 tsp by mouth every 4 hours as needed for cough CHERATUSSIN AC 100-10 MG/5ML ORAL SYRUP 9 56101 GUAIFENESIN-CODEINE Inactive PROMETHAZINE-CODEINE 6.25-10 MG/5ML ORAL SYRUP 1 tsp b y mouth every 6 hours if needed for cough PROMETHAZINE-CODEINE 6.25-10 MG/5ML ORAL SYRUP 098251 PROMETHAZINE-CODEINE Inactive CHERATUSSIN AC 100-10 MG/5ML ORAL SYRUP 1 tsp by mouth every 4 hours as needed for cough CHERATUSSIN AC 100-10 MG/5ML ORAL SYRUP 9 64710 GUAIFENESIN-CODEINE Inactive FLUTICASONE PROPIONATE 50 MCG/ACT NASAL SUSPENSION 1 t o 2 sprays each nostril daily FLUTICASONE PROPIONATE 50 MCG/AC T NASAL SUSPENSION 5960416 FLUTICASONE PROPIONATE Inactive PREDNISONE 20 MG ORAL TABLET 3 tab PO qd x 2d, 2 tab P O qd x 2d, 1 tab PO qd x 2d, 1/2 tab PO qd x 2d PREDNISONE 20 MG ORAL TAB LET 802843 PREDNISONE Inactive LEVOFLOXACIN 500 MG ORAL TABLET 1 tab PO daily x 10 days LEVOFLOXACIN 500 MG ORAL TABLET 845998 LEVOFLOXACIN Inactive CYCLOBENZAPRINE HCL 10 MG ORAL TABLET 1 tablet by mouth BID prn had pain CYCLOBENZAPRINE HCL 10 MG ORAL TABLET 780217 CYCLOBENZAPRINE HCL Inactive ZOCOR 40 MG ORAL TABLET 1 tab by mouth daily 4 ZOCOR 40 MG ORAL TABLET 716709 SIMVASTATIN Inactive TUSSIONEX PENNKINETIC ER 10-8 MG/5ML [...] FLUTICASONE PROPIO EFE 50 MCG/ACT NASAL SUSPENSION 2261844 FLUTICASONE PROPIONATE Inactive TUSSIONEX PENNKINETIC ER 10-8 MG/5ML ORAL SUSPENSION E XTENDED RELEASE 5 mL PO q 12 hrs PRN cough TUSSIONEX PENNKINETI C ER 10-8 MG/5ML ORAL SUSPENSION EXTENDED RELEASE HYDROCOD POLST-CHLORPHEN POLST I nactive LYRICA 100 MG ORAL CAPSULE Take 1 tab po BID for fibromyalgia 20 11/08/21 LYRICA 100 MG ORAL CAPSULE 530276 PREGABALIN Inact nael TUSSIONEX PENNKINETIC ER 10-8 [...] three days PREDNISONE 20 MG ORAL TABLET 085388 PREDNIS ONE Inactive PROAIR HFA 108 (90 BASE) MCG/ACT INHALATION AEROSOL SO LUTION 2 puffs four times a day as needed PROAIR HFA 108 (90 B ASE) MCG/ACT INHALATION AEROSOL SOLUTION ALBUTEROL SULFATE Inactive PREDNISONE 20 MG ORAL TABLET two tabs by mouth today, then one tab by mouth days two and three and four PREDNISONE 20 MG ORAL TAB LET 768654 PREDNISONE Inactive TUSSIONEX PENNKINETIC ER 10-8 MG/5ML [...] bid 04/20 TOPAMAX 100 MG ORAL TABLET 432398 TOPIRAMATE Inactive CYMBALTA 30 MG ORAL CAPSULE DELAYED RELEASE PARTICLES 1 cap by mouth daily for depression CYMBALTA 30 MG ORAL CAPSULE DELAYED RELEASE PARTICLES [id number] DULOXETINE HCL Inactive TYLENOL WITH CODEINE #3 300-30 MG ORAL TABLET 1-2 po q6hr PRN Pa in TYLENOL WITH CODEINE #3 300-30 MG ORAL TABLET [id number] ACETAMINOPHEN-CODEINE Inactive TYLENOL WITH CODEINE #3 300-30 MG ORAL TABLET TYLENOL WITH CODEINE #3 300-30 MG ORAL TABLET [id number] ACETAMINOPHEN-CODEINE Inactive TRIAMCINOLONE ACETONIDE 0.1 % EXTERNAL CREAM apply bid spari ngly to rash TRIAMCINOLONE ACETONIDE 0.1 % EXTERNAL CREAM 101 4314 TRIAMCINOLONE ACETONIDE Inactive ZITHROMAX Z-REYNA 250 MG ORAL TABLET 2 today, then 1 daily for 4 d ays ZITHROMAX Z-REYNA 250 MG ORAL TABLET [id number] AZITHROMYCIN Inactive CEFDINIR 300 MG ORAL CAPSULE by mouth twice a day 2010 CEFDINIR 300 MG ORAL CAPSULE [id number] CEFDINIR Inactive CEFDINIR 300 MG ORAL CAPSULE by mouth twice a day 2010 CEFDINIR 300 MG ORAL CAPSULE [id number] CEFDINIR Inactive CEFDINIR 300 MG ORAL CAPSULE by mouth twice a day 2010 CEFDINIR 300 MG ORAL CAPSULE [id number] CEFDINIR Inactive CEFDINIR 300 MG ORAL CAPSULE by mouth twice a day 2011 CEFDINIR 300 MG ORAL CAPSULE 20020704 CEFDINIR Inactive ZITHROMAX 250 MG ORAL TABLET 2 po today, then 1 po q days 2-5 20 03/07/07 ZITHROMAX 250 MG ORAL TABLET 967208 AZITHROMYCIN [place] [facility] CEFDINIR 300 MG ORAL CAPSULE by mouth twice a day 2011 CEFDINIR 300 MG ORAL CAPSULE 20020704 CEFDINIR Inactive PREDNISONE 20 MG ORAL TABLET 2 tabs daily for 3 days, 1 tab daily for 3 days, 1/2 tab daily for 2 days PREDNISONE 20 MG ORAL T ABLET 516374 PREDNISONE Inactive AVELOX 400 MG ORAL TABLET [...] days 11/07 PREDNISONE 20 MG ORAL TABLET 448384 PREDNISONE Inactive LEVAQUIN 500 MG ORAL TABLET take one po QD LEVAQUIN 500 MG ORAL TABLET 964027 LEVOFLOXACIN Inactive AZITHROMYCIN 250 MG ORAL TABLET 2 po qd x 1 day, then 1 po q d x 4 days AZITHROMYCIN 250 MG ORAL TABLET 666479 AZITHROMY GIOVANNI Inactive MEDROL 4 MG ORAL TABLET THERAPY PACK 6 tabs on day 1, 5 tabs on day 2, 4 tabs on day 3, 3 tabs on day 4, 2 tabs on day 5, 1 tab on day 6 2013 MEDROL 4 MG ORAL TABLET THERAPY PACK 677520 METHYLPREDNISOLONE [facility] [facility] CHERATUSSIN AC 100-10 MG/5ML ORAL SYRUP 5ml po q6hr PRN Cough 20 13/04/14 CHERATUSSIN AC 100-10 MG/5ML ORAL SYRUP 961838 GUAIFENE SIN-CODEINE Inactive TRIAMCINOLONE ACETONIDE 0.1 % EXTERNAL CREAM apply three roger es daily prn rash TRIAMCINOLONE ACETONIDE 0.1 % EXTERNAL CREAM 101 4314 TRIAMCINOLONE ACETONIDE Inactive AZITHROMYCIN 250 MG ORAL TABLET 2 po qd x 1 day, then 1 po q d x 4 days AZITHROMYCIN 250 MG ORAL TABLET 383005 AZITHROMY GIOVANNI Inactive MEDROL 4 MG ORAL TABLET THERAPY PACK 6 pills x 1 day, then 5 pills x 1 day then 4 pills x 1 day, then 3 pills x 1 day, then 2 pills x 1 day, then 1 pill x 1 day, then stop MEDROL 4 MG ORAL TABLET THERAPY PACK 738550 METHYLPREDNISOLONE Inactive AMOXICILLIN 500 MG ORAL CAPSULE 1 tab by mouth 3 times daily x 10 days AMOXICILLIN 500 MG ORAL CAPSULE 849662 AMOXICILL IN Inactive AMOXICILLIN 500 MG ORAL CAPSULE 1 tab by mouth 3 times daily x 10 days AMOXICILLIN 500 MG ORAL CAPSULE 061815 AMOXICILL IN Inactive ZITHROMAX 250 MG ORAL TABLET 2 po today, then 1 po q days 2-5 20 12/08/14 ZITHROMAX 250 MG ORAL TABLET 238927 AZITHROMYCIN [place] [facility] AUGMENTIN 875-125 MG ORAL TABLET 1 po BID x 10 days 20 13/01/20 AUGMENTIN 875-125 MG ORAL TABLET AMOXICILLIN-POT CLAVULANATE Inactive ZITHROMAX Z-REYNA 250 MG ORAL TABLET 2 today, then 1 daily for 4 d ays ZITHROMAX Z-REYNA 250 MG ORAL TABLET 823748 AZITHROMYCIN Inactive ZITHROMAX 250 MG ORAL TABLET 2 po today, then 1 po q days 2-5 20 14/03/21 ZITHROMAX 250 MG ORAL TABLET 030604 AZITHROMYCIN [facility] ZITHROMAX Z-REYNA 250 MG ORAL TABLET 2 today, then 1 daily for 4 d ays ZITHROMAX Z-REYNA 250 MG ORAL TABLET 201944 AZITHROMYCIN Inactive CEFDINIR 300 MG ORAL CAPSULE 1 po BID x 10 days 06/21 CEFDINIR 300 MG ORAL CAPSULE 996382 CEFDINIR Inactive ZITHROMAX 250 MG ORAL TABLET 2 po today, then 1 po q days 2-5 20 13/08/10 ZITHROMAX 250 MG ORAL TABLET 190971 AZITHROMYCIN [facility] LEVAQUIN 500 MG ORAL TABLET 1 tablet by mouth daily 13/09/24 LEVAQUIN 500 MG ORAL TABLET 848646 LEVOFLOXACIN Inactive SINGULAIR 10 MG ORAL TABLET 1 po qday for allergies 20 14/01/12 SINGULAIR 10 MG ORAL TABLET 934627 MONTELUKAST SODIUM Inactive AMOXICILLIN 500 MG ORAL CAPSULE 2 po BID x 10 days 201 09/29/08 AMOXICILLIN 500 MG ORAL CAPSULE 959080 AMOXICILLIN Inactive PREDNISONE 20 MG ORAL TABLET 2 tabs daily for 3 days, 1 tab daily for 3 days, 1/2 tab daily for 2 days PREDNISONE 20 MG ORAL T ABLET 579827 PREDNISONE Inactive ZITHROMAX Z-REYNA 250 MG ORAL TABLET 2 today, then 1 daily for 4 d ays ZITHROMAX Z-REYNA 250 MG ORAL TABLET 918000 AZITHROMYCIN Inactive PREDNISONE 20 MG ORAL TABLET 2 tabs daily for 3 days, 1 tab daily for 3 days, 1/2 tab daily for 2 days PREDNISONE 20 MG ORAL T ABLET 498664 PREDNISONE Inactive ZITHROMAX 250 MG ORAL TABLET 2 po today, then 1 po q days 2-5 20 14/09/04 ZITHROMAX 250 MG ORAL TABLET 599064 AZITHROMYCIN [place] [facility] AMOXICILLIN 500 MG ORAL CAPSULE 1 cap by mouth three times a day AMOXICILLIN 500 MG ORAL CAPSULE 045773 AMOXICILLIN Inactive TERBINAFINE HCL 250 MG ORAL TABLET 1 qDay for nail fungus 7 TERBINAFINE HCL 250 MG ORAL TABLET 480914 TERBINAFINE HCL Inact nael AUGMENTIN 875-125 MG ORAL TABLET 1 po BID x 10 days 16/03/22 AUGMENTIN 875-125 MG ORAL TABLET AMOXICILLIN-POT CLAVULANATE Inactive PREDNISONE 20 MG ORAL TABLET 2 po qd x 5 days PREDNISONE 20 MG ORAL TABLET 041598 PREDNISONE Inactive AZITHROMYCIN 250 MG ORAL TABLET 2 po qd x 1 day, then 1 po q d x 4 days AZITHROMYCIN 250 MG ORAL TABLET 502948 AZITHROMY GIOVANNI Inactive PREDNISONE 50 MG ORAL TABLET Take 50 mg dialy for 6 day s 7 PREDNISONE 50 MG ORAL TABLET 476900 PREDNISONE Inactive AUGMENTIN 875-125 MG ORAL TABLET 1 po BID x 10 days 20 18/04/16 AUGMENTIN 875-125 MG ORAL TABLET AMOXICILLIN-POT CLAVULANATE Inactive DOXYCYCLINE HYCLATE 100 MG ORAL CAPSULE 1 cap by mouth twice latasha ly DOXYCYCLINE HYCLATE 100 MG ORAL CAPSULE 2247391 DOXYCYCL INE HYCLATE Inactive PREDNISONE 20 MG ORAL TABLET Take 2 tabs day 1 and 2 and 1 t ab days 3 and 4 PREDNISONE 20 MG ORAL TABLET 910771 PREDNISONE Inactive AMOXICILLIN 500 MG ORAL CAPSULE 1 cap by mouth twice daily 10/21 AMOXICILLIN 500 MG ORAL CAPSULE 097097 AMOXICILLIN Inactive TRIAMCINOLONE ACETONIDE 0.1 % EXTERNAL OINTMENT Apply to affected areas TID PRN Rash/Itching for up 2 weeks TRIAMCINOLON E ACETONIDE 0.1 % EXTERNAL OINTMENT 5673705 TRIAMCINOLONE ACETONIDE Inactive ACYCLOVIR 800 MG ORAL TABLET 1 po 5 times daily x 7 days ACYCLOVIR 800 MG ORAL TABLET 243681 ACYCLOVIR Inactive Vital Signs Date Name Value [...] - Chem istry sodium, serum 139 mmol/L 892-053 0460/10/12 potassium, serum 3.8 mmol/L 3.5-5.2 chloride, serum [...] negative Encounters Code Encounter Date Provider Facility CPT-49364 Level 3 Est. Patient 14:16:41 CDT David Tin miguele [facility] CPT-12055 Level 3 Est. Patient 13:57:55 CDT David Tin miguele [facility] CPT-38759 Level 3 Est. Patient 16:08:07 CDT David Tin miguele [facility] CPT-73406 Level 3 Est. Patient 16:53:54 CDT May haas MD [facility] CPT-14706 [id number] Vst-Est Level IV 08:41:08 Jadon Santos MD [facility] CPT-48150 Level 3 Est. Patient 09:46:49 [employer]ATE[employer]NERSHIP REPRESENTATIVE David lion [facility] CPT-91405 [id number] Vst-Est Level III 11:12:16 CDT Yanet Bess DO [facility] CPT-66309 Level 3 Est. Patient 11:34:49 STRATEGIC PARTNERSHIP REPRESENTATIVE Perez Mora MD [facility] CPT-02111 Level 4 Est. Patient 09:51:32 STRATEGIC PARTNERSHIP REPRESENTATIVE Carlton rich MD [facility] CPT-13600 Level 3 Est. Patient 10:26:00 STRATEGIC PARTNERSHIP REPRESENTATIVE Elise Are ll [facility] CPT-26049 Level 3 Est. Patient 13:35:41 STRATEGIC PARTNERSHIP REPRESENTATIVE Carlton rich MD [facility] CPT-49141 Level 3 Est. Patient 10:03:52 STRATEGIC PARTNERSHIP REPRESENTATIVE Carlton rich MD [facility] CPT-96507 Level 3 Est. Patient 12:17:50 CDT Hugo Restrepo MD [facility]-21527 Level 3 Est. Patient 13:42:38 CDT Elise Are [facility] CPT-69828 Level 3 Est. Patient 13:23:51 CDT Diya cobian [facility] CPT-44742 Level 3 Est. Patient 14:22:19 STRATEGIC PARTNERSHIP REPRESENTATIVE Diya cobian [facility] CPT-97804 Level 3 Est. Patient 10:11:46 CDT Carlton rich MD [facility] CPT-23442 Level 3 Est. Patient 17:29:43 CDT Elise Are [facility] CPT-61390 Level 3 Est. Patient 11:58:06 CDT Elise Are [facility] CPT-65057 Level 4 Est. Patient 14:36:51 CDT Carlton rich MD [facility] CPT-76276 Level 3 Est. Patient 18:16:00 STR[employer] PARTNERSHIP REPRESENTATIVE Blaine HERNANDEZ [facility] CPT-09627 Level 3 Est. Patient 09:45:49 STRATEGIC PARTNERSHIP REPRESENTATIVE Carlton rich MD [facility] CPT-53742 Level 3 Est. Patient 13:19:20 CDT Carlton rich MD [facility] CPT-30921 Level 3 Est. Patient 13:06:43 CDT Ridge tam DO [facility] CPT-87944 Level 3 Est. Patient 10:03:07 CDT Perez Mora MD [facility]-88194 Level 3 Est. Patient 19:50:35 STR[employer]NERSHIP REPRESENTATIVE Carlton rich MD [facility]-17611 Level 4 Est. Patient 18:05:01 STR[employer] PARTNERSHIP REPRESENTATIVE Carlton rich MD [facility] CPT-31232 Level 3 Est. Patient 10:45:55 STR[employer] PARTNERSHIP REPRESENTATIVE Hugo Restrepo MD [facility]-47993 Level 3 Est. Patient 14:12:49 CDT Griffin HERNANDEZ [facility]-53028 Level 3 Est. Patient 17:37:24 CDT Carlton rich MD [facility]-00918 Level 3 Est. Patient 16:51:54 CDT Carlton rich MD [facility]-67026 Level 3 Est. Patient 12:18:11 CDT Hugo Restrepo MD [facility]-19368 Level 3 Est. Patient 11:30:25 CDT Marcy crisostomo MD PhD [facility]-33918 Level 3 Est. Patient 12:00:47 STR[employer]NERSHIP REPRESENTATIVE Carlton rich MD [facility] CPT-33912 Level 3 Est. Patient 16:31:06 STR[employer] PARTNERSHIP REPRESENTATIVE Carlton rich MD [facility]-01554 Level 3 Est. Patient 16:23:24 STRATEGIC PARTNERSHIP REPRESENTATIVE Ridge tam DO [facility] CPT-08211 Level 3 Est. Patient 12:34:12 CDT Carlton rich MD [facility]-22483 Level 2 Est. Patient 15:43:33 CDT Robi armstrong MD [facility] CPT-50712 Level 4 Est. Patient 14:04:44 CDT Carlton rich MD [facility] CPT-93282 Level 3 Est. Patient 05:47:59 CDT Ridge tam DO [facility] CPT-82028 Level 3 Est. Patient 13:12:53 [employer]NERSHIP REPRESENTATIVE Carlton rich MD [facility] CPT-47763 Level 3 Est. Patient 14:26:53 CDT Hugo Restrepo MD [facility] Procedures Code Procedure Name Date Entry Date Standard Desc ription CPT-72745 Venipuncture Draw Fee 15:53:34 CDT CPT-000 Give Appropriate Flu Vaccine 14:14:31 CDT 2 CPT-J1040 Depo Medrol 80 mg (Methyl Prednisolone A cetate) 10:42:44 CDT CPT-J1100 Decadron 8mg (Dexamethasone) 10:42:44 CDT 2 CPT-J0696 Rocephin 1gm Inj Solr 14:32:13 CDT CPT-J1020 Depo Medrol 60 mg (Methyl Prednisolone A cetate) 14:32:13 CDT CPT-J1100 Decadron 6mg (Dexamethasone) 14:32:13 CDT 2 CPT-76634 Hip bilat min 2V w AP pelvis 13:16:20 CDT 2 CPT-94035 Pelvis only 13:07:33 CDT CPT-40943 Spec Collection and Handling Fee 11:25:12 C DT CPT-08317 Fluzone Quadrivalent Intramuscular Suspe nsion 0.5 ML 14:31:55 CDT CPT-94005 Abx/Therapy Injection 13:28:47 STR[employer]IC [employer]NERSHIP REPRESENTATIVE CPT-J2930 Solu Medrol 125 mg (Methyl Prednisolone Sodium Succinate) 12:00:47 [employer]NERSHIP REPRESENTATIVE CPT-56226 Venipuncture Draw Fee 11:33:31 CDT CPT-49356 EKG Trac and Interp 11:21:09 CDT CPT-50229 Chest 2V Frontal and Lat 11:21:09 CDT 12/15 CPT-48486 Venipuncture Draw Fee 08:02:34 CDT CPT-75048 Chest 2V Frontal and Lat 05:47:59 CDT 06/05
--- OUTSIDE RECORDS SUMMARY | 2019-10-08 10:02 | XMS REPORT | Clinical Summary ---
Author Author Caitlin, Juliana Martinez Organization [facility] Address Unknown Phone Unavailable [...] URI 465.9 Inactive Ridge Bess DO [facility] upper respiratory infections of unspecified site Body Mass Index 35.0-35.9 Adult Refinement 2017 Ridge Bess DO Body Mass Index 35.0-35.9, adult BMI 34-34.9 Refinement Cherelle Torres RN Body Mass Index 35.0-35.9, adult BMI 35-35.9 Refinement David Marianneamisha RICEN Body Mass Index 35.0-35.9, adult BMI 34-34.9 Refinement May Vivar MD Body Mass Index 35.0-35.9, adult BMI 35-35.9 Refinement David Marianne CUSTOMER RELATIONS REPRESENTATIVE Body Mass Index 35.0-35.9, adult BMI 33-33.9 Active David Marianne CUSTOMER RELATIONS REPRESENTATIVE Body Mass Index 35.0-35.9, adult Upper respiratory infection, viral 465.9 Active 2 Perez Mora MD Acute upper respiratory infections of un specified site Obesity Class I (BMI 30-34.9) Refinement Jose Torres RN Obesity, unspecified Morbid obesity due to excess calories [facility] David Marianneamisha RICEN Obesity, [...] nonspecific skin eruption 782.1 Active David Marianne CUSTOMER RELATIONS REPRESENTATIVE Rash and other nonspecific skin eruption Pharyngitis, acute / sore throat 462 Active 201 12/06/23 David Marianne CUSTOMER RELATIONS REPRESENTATIVE Acute pharyngitis Shingles 053.9 Active David Marianne CUSTOMER RELATIONS REPRESENTATIVE Herpes zoster without mention of complication BRONCHITIS [...] CODEINE #3 300-30 MG ORAL TABLET ACETAMINOPHEN-CODEINE 51904183711 Active David Marianne CUSTOMER RELATIONS REPRESENTATIVE A ctive TRIAMCINOLONE ACETONIDE 0.1 % EXTERNAL CREAM apply bid spari ngly to rash TRIAMCINOLONE ACETONIDE 05299242681 Active David Marianne CUSTOMER RELATIONS REPRESENTATIVE Active TYLENOL WITH CODEINE #3 300-30 MG ORAL TABLET 1-2 po q6hr PRN Pa in ACETAMINOPHEN-CODEINE 28038934707 No Longer Active David Marianne AP RN Active ACYCLOVIR 800 MG ORAL TABLET 1 po 5 times daily x 7 days ACYCLOVIR 31649172283 No Longer Active David Marianne CUSTOMER RELATIONS REPRESENTATIVE Active TOPAMAX 100 MG ORAL TABLET 1 by mouth twice daily TOPIRAMATE 17022902089 Active Columba Raida Active TRIAMCINOLONE ACETONIDE 0.1 % EXTERNAL OINTMENT Apply to affected areas TID PRN Rash/Itching for up 2 weeks TRIAMCINOLONE ACETON KAYLA 64527602759 No Longer Active David Marianne CUSTOMER RELATIONS REPRESENTATIVE Active AMOXICILLIN 500 MG ORAL CAPSULE 1 cap by mouth twice daily 10/21 AMOXICILLIN 33489883798 No Longer Active David Marianne CUSTOMER RELATIONS REPRESENTATIVE Active ELMIRON 100 MG ORAL CAPSULE 2 capsules in the morning and 1 capsule at night PENTOSAN POLYSULFATE SODIUM 55280354710 Active Cinthia H art DIRECTOR OF MANAGED SERVICES Active CYMBALTA 30 MG ORAL CAPSULE DELAYED RELEASE PARTICLES 1 cap by mouth daily for depression DULOXETINE HCL 03880564873 No Longer Active Carlton Hu MD Active CYMBALTA 60 MG ORAL CAPSULE DELAYED RELEASE PARTICLES 1 cap by mouth daily for mood and pain DULOXETINE HCL 69648377501 Active Carlton Hu MD Active TUSSIONEX PENNKINETIC ER 10-8 MG/5ML ORAL SUSPENSION E XTENDED RELEASE 5ml po q12hr PRN Cough HYDROCOD POLST-CHLORPHEN POLST 93358344002 Active David Marianne CUSTOMER RELATIONS REPRESENTATIVE Active PREDNISONE 20 MG ORAL TABLET Take 2 tabs day 1 and 2 and 1 t ab days 3 and 4 PREDNISONE 16222544749 No Longer Active David Marianne CUSTOMER RELATIONS REPRESENTATIVE Active DOXYCYCLINE HYCLATE 100 MG ORAL CAPSULE 1 cap by mouth twice latasha ly DOXYCYCLINE HYCLATE 74660555537 No Longer Active David Marianne CUSTOMER RELATIONS REPRESENTATIVE Active TOPAMAX 100 MG ORAL TABLET Take 1 tablet po bid TOPIRAMATE 33386276018 No Longer Active David Marianne CUSTOMER RELATIONS REPRESENTATIVE Active TUSSIONEX PENNKINETIC ER 10-8 MG/5ML ORAL SUSPENSION E XTENDED RELEASE 5ml po q12hr PRN Cough HYDROCOD POLST-CHLORPHEN POLST 5 0789337629 No Longer Active David Marianne CUSTOMER RELATIONS REPRESENTATIVE Active AUGMENTIN 875-125 MG ORAL TABLET 1 po BID x 10 days 18/04/16 AMOXICILLIN-POT CLAVULANATE 61026272133 No Longer Active David Marianne CUSTOMER RELATIONS REPRESENTATIVE Active PREDNISONE 50 MG ORAL TABLET Take 50 mg dialy for 6 day s 7 PREDNISONE 80511657946 No Longer Active David Marianne CUSTOMER RELATIONS REPRESENTATIVE Active TUSSIONEX PENNKINETIC ER 10-8 MG/5ML ORAL SUSPENSION E XTENDED RELEASE 5ml po q12hr PRN Cough HYDROCOD POLST-CHLORPHEN POLST 5 3190217751 No Longer Active Cherelle Torres RN Active PREDNISONE 20 MG ORAL TABLET two tabs by mouth today, then one tab by mouth days two and three and four PREDNISONE 37077370025 No Lo nger Active Cherelle Torres RN Active AZITHROMYCIN 250 MG ORAL TABLET 2 po qd x 1 day, then 1 po q d x 4 days AZITHROMYCIN 82905723407 No Longer Active Ridge Bess DO Active PREDNISONE 20 MG ORAL TABLET 2 po qd x 5 days P REDNISONE 96783941969 No Longer Active Perez Mora MD Active PROAIR HFA 108 (90 BASE) MCG/ACT INHALATION AEROSOL SO LUTION 2 puffs four times a day as needed ALBUTEROL SULFATE 22305996573 No Long er Active Becky FUENTES Active ASPIRIN 81 MG ORAL TABLET 1 po qd ASPIRIN 48277509085 Active Carlton Hu MD Active PREDNISONE 20 MG ORAL TABLET 1 tab twice daily for 3 d ay, then one daily for three days PREDNISONE 35454133157 No Longer Active Carlton Hu MD Active AUGMENTIN 875-125 MG ORAL TABLET 1 po BID x 10 days 20 16/03/22 AMOXICILLIN-POT CLAVULANATE 17857866042 No Longer Active Elise Garcia APRN Active TERBINAFINE HCL 250 MG ORAL TABLET 1 qDay for nail fungus 7 TERBINAFINE HCL 59715611874 No Longer Active Carlton Hu MD A ctive AMOXICILLIN 500 MG ORAL CAPSULE 1 cap by mouth three times a day AMOXICILLIN 90542728532 No Longer Active Carlton Hu MD Active ELMIRON 100 MG ORAL CAPSULE 2 tablets in the am and 1 tablet at hs PENTOSAN POLYSULFATE SODIUM 18769358395 No Longer Active Robert Hu MD Active MUCINEX D 60-600 MG ORAL TABLET EXTENDED RELEASE 12 HOUR 1 t ab po q am PSEUDOEPHEDRINE-GUAIFENESIN 52774344047 No Longer Act nael Carlton Hu MD Active MUCINEX DM MAXIMUM STRENGTH 60-1200 MG ORAL TABLET EXT ENDED RELEASE 12 HOUR 1 tab po q am DEXTROMETHORPHAN-GUAIFENESIN 94509661943 No Longer Active Carlton Hu MD Active TUSSIONEX PENNKINETIC ER 10-8 MG/5ML ORAL SUSPENSION E XTENDED RELEASE 5ml po q12hr PRN Cough HYDROCOD POLST-CHLORPHEN POLST 5 6003656704 No Longer Active Carlton Hu MD Active POTASSIUM CHLORIDE ER 20 MEQ ORAL TABLET EXTENDED RELE ASE Take 1 by mouth 4 times daily for 7 days POTASSIUM CHLORIDE 10160746302 No Longer Active Carlton Hu MD Active ZITHROMAX 250 MG ORAL TABLET 2 po today, then 1 po q days 2-5 20 14/09/04 AZITHROMYCIN 57471358408 No Longer Active Elise Garcia CUSTOMER RELATIONS REPRESENTATIVE Active TUSSIONEX PENNKINETIC ER 10-8 MG/5ML ORAL SUSPENSION E XTENDED RELEASE 5 ml twice a day as needed for cough HYDROCOD POLST-CHLORPH EN POLST 09745866280 No Longer Active Elise Garcia APRN Active MONTELUKAST SODIUM 10 MG ORAL TABLET 1 po daily for Allergy MONTELUKAST SODIUM 18298486328 Active Carlton Hu MD Ac tive TUSSIONEX PENNKINETIC ER 10-8 MG/5ML ORAL SUSPENSION E XTENDED RELEASE 5ml po q12hr PRN Cough HYDROCOD POLST-CHLORPHEN POLST 5 2518240760 No Longer Active Hugo Restrepo MD Active GABAPENTIN 100 MG ORAL CAPSULE 1 po BID for fibromyalgia GABAPENTIN 23922439011 Active ALFREDO Holly Active LYRICA 100 MG ORAL CAPSULE Take 1 tab po BID for fibromyalgia 20 11/08/21 PREGABALIN 09004676339 No Longer Active Elise Garcia APRN A ctive PREDNISONE 20 MG ORAL TABLET 2 tabs daily for 3 days, 1 tab daily for 3 days, 1/2 tab daily for 2 days PREDNISONE 27603139582 No Longer Active Diya De Guzman APRN Active TUSSIONEX PENNKINETIC ER 10-8 MG/5ML ORAL SUSPENSION E XTENDED RELEASE 5 mL PO q 12 hrs PRN cough HYDROCOD POLST-CHLORPHEN POLST 058602 29767 No Longer Active Diya Guerrerol CUSTOMER RELATIONS REPRESENTATIVE Active FLUTICASONE PROPIONATE 50 MCG/ACT NASAL SUSPENSION 2 s prays each nostril daily until bottle is empty FLUTICASONE PROPIONATE 578870819 99 No Longer Active Jillina Frakerriel CUSTOMER RELATIONS REPRESENTATIVE Active ASMANEX 60 METERED DOSES 220 MCG/INH INHALATION AEROSO L POWDER BREATH ACTIVATED 1 puff bid with rinse after MOMETASONE FUROATE 1164036 4102 No Longer Active Venullina Cesarl CUSTOMER RELATIONS REPRESENTATIVE Active ZITHROMAX Z-REYNA 250 MG ORAL TABLET 2 today, then 1 daily for 4 d ays AZITHROMYCIN 01613588324 No Longer Active Elise Garcia APRN Active TUSSIONEX PENNKINETIC ER 10-8 MG/5ML ORAL SUSPENSION E XTENDED RELEASE 5ml po q12hr PRN Cough HYDROCOD POLST-CHLORPHEN POLST 5 8494115687 No Longer Active Elise Garcia APRN Active PREDNISONE 20 MG ORAL TABLET 2 tabs daily for 3 days, 1 tab daily for 3 days, 1/2 tab daily for 2 days PREDNISONE 39616753875 No Longer Active Diya De Guzman APRN Active AMOXICILLIN 500 MG ORAL CAPSULE 2 po BID x 10 days 201 09/29/08 AMOXICILLIN 96161198270 No Longer Active Diya De Guzman APRN Act nael SINGULAIR 10 MG ORAL TABLET 1 po qday for allergies 20 14/01/12 MONTELUKAST SODIUM 82806860585 No Longer Active Carlton Hu MD Active LEVAQUIN 500 MG ORAL TABLET 1 tablet by mouth daily 20 13/09/24 LEVOFLOXACIN 54514762577 No Longer Active Carlton Hu MD Acti ve FLUTICASONE PROPIONATE 50 MCG/ACT NASAL SUSPENSION 2 s prays each nostril daily for 2 weeks, then 1 spray each nostril daily. FLUTICASONE PROPIONATE 40161798181 Active Carlton Hu MD Active ZITHROMAX 250 MG ORAL TABLET 2 po today, then 1 po q days 2-5 20 13/08/10 AZITHROMYCIN 76095299332 No Longer Active Elise Garcia APRN Active XANAX 0.5 MG ORAL TABLET one tablet by mouth daily prn anxiety 2015 ALPRAZOLAM 64210731548 Active ALFREDO Holly Active CEFDINIR 300 MG ORAL CAPSULE 1 po BID x 10 days CEFDINIR 89150680770 No Longer Active Carlton Hu MD Active ZOCOR 40 MG ORAL TABLET 1 tab by mouth daily SI MVASTATIN 59648245025 No Longer Active Carlton Hu MD Active CYCLOBENZAPRINE HCL 10 MG ORAL TABLET 1 tablet by mouth BID prn had pain CYCLOBENZAPRINE HCL 68821929746 No Longer Active Jayden Hu MD Active LEVOFLOXACIN 500 MG ORAL TABLET 1 tab PO daily x 10 days LEVOFLOXACIN 44111155312 No Longer Active Carlton Hu MD Acti ve PREDNISONE 20 MG ORAL TABLET 3 tab PO qd x 2d, 2 tab P O qd x 2d, 1 tab PO qd x 2d, 1/2 tab PO qd x 2d PREDNISONE 89281473611 No Lo nger Active Carlton Hu MD Active FLUTICASONE PROPIONATE 50 MCG/ACT NASAL SUSPENSION 1 t o 2 sprays each nostril daily FLUTICASONE PROPIONATE 33375746321 No Longer Ac tive Blaine HERNANDEZ Active CHERATUSSIN AC 100-10 MG/5ML ORAL SYRUP 1 tsp by mouth every 4 hours as needed for cough GUAIFENESIN-CODEINE 01733402487 No Longe r Active Blaine HERNANDEZ Active PROMETHAZINE-CODEINE 6.25-10 MG/5ML ORAL SYRUP 1 tsp b y mouth every 6 hours if needed for cough PROMETHAZINE-CODEINE 42258280776 No Longer Active Blaine HERNANDEZ Active CHERATUSSIN AC 100-10 MG/5ML ORAL SYRUP 1 tsp by mouth every 4 hours as needed for cough GUAIFENESIN-CODEINE 58019575946 No Longe r Active Blaine HERNANDEZ Active ZITHROMAX Z-REYNA 250 MG ORAL TABLET 2 today, then 1 daily for 4 d ays AZITHROMYCIN 54045008833 No Longer Active Columba Raida Act nael ZITHROMAX 250 MG ORAL TABLET 2 po today, then 1 po q days 2-5 20 14/03/21 AZITHROMYCIN 77921931377 No Longer Active Carlton Hu MD Active ZITHROMAX Z-REYNA 250 MG ORAL TABLET 2 today, then 1 daily for 4 d ays AZITHROMYCIN 12761824695 No Longer Active Columba Raida Act nael AUGMENTIN 875-125 MG ORAL TABLET 1 po BID x 10 days 13/01/20 AMOXICILLIN-POT CLAVULANATE 02549251709 No Longer Active Diya De Guzman APRN Active ZITHROMAX 250 MG ORAL TABLET 2 po today, then 1 po q days 2-5 20 12/08/14 AZITHROMYCIN 72482914461 No Longer Active Carlton Hu MD Active TRAMADOL HCL 50 MG ORAL TABLET 1 po tid with ES Tylenol TRAMADOL HCL 44048205695 Active ALFREDO Holly Active PREMARIN 0.625 MG ORAL TABLET TAKE 1 TAB BY MOUTH DAILY ESTROGENS CONJUGATED 73963119959 No Longer Active Ridge Bess DO A ctive CYMBALTA 30 MG ORAL CAPSULE DELAYED RELEASE PARTICLES 1 cap by mouth daily DULOXETINE HCL 72568404574 No Longer Active Ridge tam DO Active AMOXICILLIN 500 MG ORAL CAPSULE 1 tab by mouth 3 times daily x 10 days AMOXICILLIN 47234911362 No Longer Active Carlton bustamante MD Active AMOXICILLIN 500 MG ORAL CAPSULE 1 tab by mouth 3 times daily x 10 days AMOXICILLIN 95852748979 No Longer Active Carlton bustamante MD Active PROMETHAZINE-CODEINE 6.25-10 MG/5ML ORAL SYRUP 1 tsp b y mouth every 8 hours prn cough PROMETHAZINE-CODEINE 22824381685 No Longer Acti ve Carlton Hu MD Active MEDROL 4 MG ORAL TABLET THERAPY PACK 6 pills x 1 day, then 5 pills x 1 day then 4 pills x 1 day, then 3 pills x 1 day, then 2 pills x 1 day, then 1 pill x 1 day, then stop METHYLPREDNISOLONE 61203720574 No Long er Active Perez Mora MD Active AZITHROMYCIN 250 MG ORAL TABLET 2 po qd x 1 day, then 1 po q d x 4 days AZITHROMYCIN 65966541708 No Longer Active Perez Ambriz MD Active SYMBICORT 160-4.5 MCG/ACT INHALATION AEROSOL 2 puffs bid wit h rinse after BUDESONIDE-FORMOTEROL FUMARATE 06413772821 N o Longer Active Perez Mora MD Active LYRICA 75 MG ORAL CAPSULE TAKE 1 CAPSULE BY MOUTH TWICE DAILY PREGABALIN 99109380282 No Longer Active Carlton Hu MD Acti ve TOPAMAX 25 MG ORAL TABLET 1 qHS x 1 week, then 1 BID x 1 week, then 1 qAM and 2 qHS x 1 week, then 2 BID (migraine prevention) T OPIRAMATE 82163422279 No Longer Active Jerica FUENTES Active TOPAMAX 50 MG ORAL TABLET take 1 tab po BID for migraines. 07/02 TOPIRAMATE 19673894292 No Longer Active Jerica FUENTES Active TRIAMCINOLONE ACETONIDE 0.1 % EXTERNAL CREAM apply three roger es daily prn rash TRIAMCINOLONE ACETONIDE 37271215641 No Longer Active Carlton Hu MD Active PAXIL 40 MG ORAL TABLET take 1 tab po qday for depression 0 PAROXETINE HCL 09728402986 Active Carlton Hu MD Active CHERATUSSIN AC 100-10 MG/5ML ORAL SYRUP 5ml po q6hr PRN Cough 20 13/04/14 GUAIFENESIN-CODEINE 06342959896 No Longer Active Carlton Hu MD Active MEDROL 4 MG ORAL TABLET THERAPY PACK 6 tabs on day 1, 5 tabs on day 2, 4 tabs on day 3, 3 tabs on day 4, 2 tabs on day 5, 1 tab on day 6 2013 METHYLPREDNISOLONE 74082018254 No Longer Active Perez Mora MD Active AZITHROMYCIN 250 MG ORAL TABLET 2 po qd x 1 day, then 1 po q d x 4 days AZITHROMYCIN 08076708506 No Longer Active Perez Ambriz MD Active PROPRANOLOL HCL 60 MG ORAL TABLET 1 PO Q D PROPRANOLOL HCL 21302541601 No Longer Active Perez Mora MD Activ e CHERATUSSIN AC 100-10 MG/5ML ORAL SYRUP take one tsp po Q 6h ours prn cough GUAIFENESIN-CODEINE 31145387126 No Longer Active Zia Mora MD Active AUGMENTIN 875-125 MG ORAL TABLET 1 tab by mouth twice daily with food AMOXICILLIN-POT CLAVULANATE 91183519615 No Longer Act nael Perez Mora MD Active CHERATUSSIN AC 100-10 MG/5ML ORAL SYRUP 1 tsp by mouth every 4 hours as needed for cough GUAIFENESIN-CODEINE 70913753829 No Longe r Active Hugo Restrepo MD Active ACETAMINOPHEN-CODEINE #3 300-30 MG ORAL TABLET 1 PO Q 4-6 HRS [place] N PAIN ACETAMINOPHEN-CODEINE 85132278066 No Longer Active Hugo Restrepo MD Active LEVAQUIN 500 MG ORAL TABLET take one po QD LEVO FLOXACIN 53712002944 No Longer Active Griffin HERNANDEZ Active PREDNISONE 20 MG ORAL TABLET Take 3 tabs daily for 3 d ays, 2 tabs daily for 3 days, 1 tab daily for 3 days, 1/2 tab daily for 3 days 11/07 PREDNISONE 90790542754 No Longer Active Carlton Hu MD Acti ve AVELOX 400 MG ORAL TABLET 1 tab by mouth daily MOXIFLOXACIN HCL 17297941973 No Longer Active Carlton Hu MD Active CHERATUSSIN AC 100-10 MG/5ML ORAL SYRUP 1 tsp by mouth every 4 hours as needed for cough GUAIFENESIN-CODEINE 82198101817 No Longe r Active Hugo Restrepo MD Active AVELOX 400 MG ORAL TABLET 1 tab by mouth daily MOXIFLOXACIN HCL 72325935076 No Longer Active Marcy De La Rosa MD PhD Active TERBINAFINE HCL 250 MG ORAL TABLET 1 qDay T ERBINAFINE HCL 49899595167 No Longer Active Marcy De La Rosa MD PhD Active CHERATUSSIN AC 100-10 MG/5ML ORAL SYRUP 1 tsp by mouth every 4 hours as needed for cough GUAIFENESIN-CODEINE 04896886427 No Longe r Active Marcy De La Rosa MD PhD Active AVELOX 400 MG ORAL TABLET 1 tab by mouth daily MOXIFLOXACIN HCL 89734808169 No Longer Active Marcy De La Rosa MD PhD Active HYDROCODONE-ACETAMINOPHEN 5-325 MG ORAL TABLET 1 po q 6hr PRN co ugh HYDROCODONE-ACETAMINOPHEN 96323880439 No Longer Active Marcy De La Rosa MD PhD Active PREDNISONE 20 MG ORAL TABLET 2 tabs daily for 3 days, 1 tab daily for 3 days, 1/2 tab daily for 2 days PREDNISONE 05109881611 No Longer Active Carlton Hu MD Active CEFDINIR 300 MG ORAL CAPSULE by mouth twice a day 2011 CEFDINIR 83462396429 No Longer Active Carlton Hu MD Acti ve HYDROCHLOROTHIAZIDE 25 MG ORAL TABLET 1 TAB PO DAILY HYDROCHLOROTHIAZIDE 13283955585 Active Carlton Hu MD A ctive ACETAMINOPHEN-CODEINE #3 300-30 MG ORAL TABLET 1 tablet po q 4-6 hrs prn pain ACETAMINOPHEN-CODEINE 72476233221 No Longer Active Ridge Bess DO Active ZITHROMAX 250 MG ORAL TABLET 2 po today, then 1 po q days 2-5 20 03/07/07 AZITHROMYCIN 53863773504 No Longer Active Carlton Hu MD Active CHERATUSSIN AC 100-10 MG/5ML ORAL SYRUP take 1 tsp po q4-6 h ours prn cough GUAIFENESIN-CODEINE 61239895063 No Longer Active Jayden Hu MD Active ACETAMINOPHEN-CODEINE #3 300-30 MG ORAL TABLET 1 PO Q 4-6 HR PRN PAIN ACETAMINOPHEN-CODEINE 60914232735 No Longer Active Da raimundo Hu MD Active LORTAB 7.5-500 MG/15ML ORAL ELIXIR 7.5 ml po q 4 hour prn cough HYDROCODONE-ACETAMINOPHEN 47376387537 No Longer Active Carlton Hu MD Active PREDNISONE 20 MG ORAL TABLET 1 po bid 3 days, then 1 po q day 3 days PREDNISONE 06730322123 No Longer Active Carlton Hu MD Active CEFDINIR 300 MG ORAL CAPSULE by mouth twice a day 2011 CEFDINIR 42203821825 No Longer Active Carlton Hu MD Acti ve CEFDINIR 300 MG ORAL CAPSULE by mouth twice a day 2010 CEFDINIR 31450200387 No Longer Active Carlton Hu MD Acti ve CEFDINIR 300 MG ORAL CAPSULE by mouth twice a day 2010 CEFDINIR 72254550618 No Longer Active Carlton Hu MD Acti ve TESSALON PERLES 100 MG ORAL CAPSULE 1 tablet by mouth 3 times daily as needed for cough BENZONATATE 63783867797 No Longer Active Carlton Hu MD Active CEFDINIR 300 MG ORAL CAPSULE by mouth twice a day 2010 CEFDINIR 75826333201 No Longer Active Carlton Hu MD Acti ve ZITHROMAX Z-REYNA 250 MG ORAL TABLET 2 today, then 1 daily for 4 d ays AZITHROMYCIN 92589660022 No Longer Active Hugo Restrepo MD Active TESSALON PERLES 100 MG ORAL CAPSULE 1 tablet by mouth 3 times daily as needed for cough TESSALON PERLES 100 MG ORAL CAPSULE 96994 7 BENZONATATE Inactive PREDNISONE 20 MG ORAL TABLET 1 po bid 3 days, then 1 po q day 3 days PREDNISONE 20 MG ORAL TABLET 076077 PREDNISONE Greer ctive LORTAB 7.5-500 MG/15ML ORAL [...] cough CHERATUSSIN AC 100-10 MG/5ML ORAL SYRUP 302096 GUAIFENESIN-CODEINE Inactive ACETAMINOPHEN-CODEINE #3 300-30 MG ORAL TABLET 1 tablet po q 4-6 hrs prn pain ACETAMINOPHEN-CODEINE #3 300-30 MG ORAL TABLET ACETAMINOPHEN-CODEINE Inactive HYDROCODONE-ACETAMINOPHEN 5-325 MG ORAL TABLET 1 po q 6hr PRN co ugh HYDROCODONE-ACETAMINOPHEN 5-325 MG ORAL TABLET 840407 HYDROCODONE-ACETAMINOPHEN Inactive AVELOX 400 MG ORAL TABLET 1 tab by mouth daily AVELOX 400 MG ORAL TABLET MOXIFLOXACIN HCL Inactive CHERATUSSIN AC 100-10 MG/5ML ORAL SYRUP 1 tsp by mouth every 4 hours as needed for cough CHERATUSSIN AC 100-10 MG/5ML ORAL SYRUP 9 69030 GUAIFENESIN-CODEINE Inactive TERBINAFINE HCL 250 MG ORAL TABLET 1 qDay 07/08 TERBINAFINE HCL 250 MG ORAL TABLET 586128 TERBINAFINE HCL Inactive CHERATUSSIN AC 100-10 MG/5ML ORAL SYRUP 1 tsp by mouth every 4 hours as needed for cough CHERATUSSIN AC 100-10 MG/5ML ORAL SYRUP 9 94577 GUAIFENESIN-CODEINE Inactive ACETAMINOPHEN-CODEINE #3 300-30 MG ORAL TABLET 1 PO Q 4-6 HRS [place] N PAIN ACETAMINOPHEN-CODEINE #3 300-30 MG ORAL TABLET ACETAMINOPHEN-CODEINE Inactive CHERATUSSIN AC 100-10 MG/5ML ORAL SYRUP 1 tsp by mouth every 4 hours as needed for cough CHERATUSSIN AC 100-10 MG/5ML ORAL SYRUP 9 81081 GUAIFENESIN-CODEINE Inactive AUGMENTIN 875-125 MG ORAL TABLET 1 tab by mouth twice daily with food AUGMENTIN 875-125 MG ORAL TABLET AMOXICIL MADELINE-POT CLAVULANATE Inactive CHERATUSSIN AC 100-10 MG/5ML ORAL SYRUP take one tsp po Q 6h ours prn cough CHERATUSSIN AC 100-10 MG/5ML ORAL SYRUP 058396 GUAIFENESIN-CODEINE Inactive PROPRANOLOL HCL 60 MG ORAL TABLET 1 PO Q D PROPRANOLOL HCL 60 MG ORAL TABLET 096085 PROPRANOLOL HCL Inactive TOPAMAX 50 MG ORAL TABLET take 1 tab po BID for migraines. 07/02 TOPAMAX 50 MG ORAL TABLET 362612 TOPIRAMATE Inacti ve TOPAMAX 25 MG ORAL TABLET 1 qHS x 1 week, then 1 BID x 1 week, then 1 qAM and 2 qHS x 1 week, then 2 BID (migraine prevention) TOPAMAX 25 MG ORAL TABLET 475497 TOPIRAMATE Inactive LYRICA 75 MG ORAL CAPSULE TAKE 1 CAPSULE BY MOUTH TWICE DAILY LYRICA 75 MG ORAL CAPSULE 959230 PREGABALIN Inactive SYMBICORT 160-4.5 MCG/ACT INHALATION AEROSOL 2 puffs bid wit h rinse after SYMBICORT 160-4.5 MCG/ACT INHALATION AEROSOL BUDESONIDE- FORMOTEROL FUMARATE Inactive PROMETHAZINE-CODEINE 6.25-10 MG/5ML ORAL SYRUP 1 tsp b y mouth every 8 hours prn cough PROMETHAZINE-CODEINE 6.25-10 MG/ 5ML ORAL SYRUP 335385 PROMETHAZINE-CODEINE Inactive CYMBALTA 30 MG ORAL CAPSULE DELAYED RELEASE PARTICLES 1 cap by mouth daily CYMBALTA 30 MG ORAL CAPSULE DELAYED RELE ASE PARTICLES 833181 DULOXETINE HCL Inactive PREMARIN 0.625 MG ORAL TABLET TAKE 1 TAB BY MOUTH DAILY PREMARIN 0.625 MG ORAL TABLET ESTROGENS CONJUGATED Inactive CHERATUSSIN AC 100-10 MG/5ML ORAL SYRUP 1 tsp by mouth every 4 hours as needed for cough CHERATUSSIN AC 100-10 MG/5ML ORAL SYRUP 9 38238 GUAIFENESIN-CODEINE Inactive PROMETHAZINE-CODEINE 6.25-10 MG/5ML ORAL SYRUP 1 tsp b y mouth every 6 hours if needed for cough PROMETHAZINE-CODEINE 6.25-10 MG/5ML ORAL SYRUP 331249 PROMETHAZINE-CODEINE Inactive CHERATUSSIN AC 100-10 MG/5ML ORAL SYRUP 1 tsp by mouth every 4 hours as needed for cough CHERATUSSIN AC 100-10 MG/5ML ORAL SYRUP 9 03950 GUAIFENESIN-CODEINE Inactive FLUTICASONE PROPIONATE 50 MCG/ACT NASAL SUSPENSION 1 t o 2 sprays each nostril daily FLUTICASONE PROPIONATE 50 MCG/AC T NASAL SUSPENSION 1101739 FLUTICASONE PROPIONATE Inactive PREDNISONE 20 MG ORAL TABLET 3 tab PO qd x 2d, 2 tab P O qd x 2d, 1 tab PO qd x 2d, 1/2 tab PO qd x 2d PREDNISONE 20 MG ORAL TAB LET 263949 PREDNISONE Inactive LEVOFLOXACIN 500 MG ORAL TABLET 1 tab PO daily x 10 days LEVOFLOXACIN 500 MG ORAL TABLET 723694 LEVOFLOXACIN Inactive CYCLOBENZAPRINE HCL 10 MG ORAL TABLET 1 tablet by mouth BID prn had pain CYCLOBENZAPRINE HCL 10 MG ORAL TABLET 398726 CYCLOBENZAPRINE HCL Inactive ZOCOR 40 MG ORAL TABLET 1 tab by mouth daily 4 ZOCOR 40 MG ORAL TABLET 419288 SIMVASTATIN Inactive TUSSIONEX PENNKINETIC ER 10-8 MG/5ML [...] FLUTICASONE PROPIO EFE 50 MCG/ACT NASAL SUSPENSION 6273373 FLUTICASONE PROPIONATE Inactive TUSSIONEX PENNKINETIC ER 10-8 MG/5ML ORAL SUSPENSION E XTENDED RELEASE 5 mL PO q 12 hrs PRN cough TUSSIONEX PENNKINETI C ER 10-8 MG/5ML ORAL SUSPENSION EXTENDED RELEASE HYDROCOD POLST-CHLORPHEN POLST I nactive LYRICA 100 MG ORAL CAPSULE Take 1 tab po BID for fibromyalgia 20 11/08/21 LYRICA 100 MG ORAL CAPSULE 612708 PREGABALIN Inact nael TUSSIONEX PENNKINETIC ER 10-8 [...] three days PREDNISONE 20 MG ORAL TABLET 021710 PREDNIS ONE Inactive PROAIR HFA 108 (90 BASE) MCG/ACT INHALATION AEROSOL SO LUTION 2 puffs four times a day as needed PROAIR HFA 108 (90 B ASE) MCG/ACT INHALATION AEROSOL SOLUTION ALBUTEROL SULFATE Inactive PREDNISONE 20 MG ORAL TABLET two tabs by mouth today, then one tab by mouth days two and three and four PREDNISONE 20 MG ORAL TAB LET 231847 PREDNISONE Inactive TUSSIONEX PENNKINETIC ER 10-8 MG/5ML [...] bid 04/20 TOPAMAX 100 MG ORAL TABLET 432836 TOPIRAMATE Inactive CYMBALTA 30 MG ORAL CAPSULE DELAYED RELEASE PARTICLES 1 cap by mouth daily for depression CYMBALTA 30 MG ORAL CAPSULE DELAYED RELEASE PARTICLES 486371 DULOXETINE HCL Inactive TYLENOL WITH CODEINE #3 300-30 MG ORAL TABLET 1-2 po q6hr PRN Pa in TYLENOL WITH CODEINE #3 300-30 MG ORAL TABLET ACETAMINOPHEN-CODEINE Inactive ZITHROMAX Z-REYNA 250 MG ORAL TABLET 2 today, then 1 daily for 4 d ays ZITHROMAX Z-REYNA 250 MG ORAL TABLET 440108 AZITHROMYCIN Inactive CEFDINIR 300 MG ORAL CAPSULE by mouth twice a day 2010 CEFDINIR 300 MG ORAL CAPSULE 084253 CEFDINIR Inactive CEFDINIR 300 MG ORAL CAPSULE by mouth twice a day 2010 CEFDINIR 300 MG ORAL CAPSULE 981904 CEFDINIR Inactive CEFDINIR 300 MG ORAL CAPSULE by mouth twice a day 2010 CEFDINIR 300 MG ORAL CAPSULE 107841 CEFDINIR Inactive CEFDINIR 300 MG ORAL CAPSULE by mouth twice a day 2011 CEFDINIR 300 MG ORAL CAPSULE 454177 CEFDINIR Inactive ZITHROMAX 250 MG ORAL TABLET 2 po today, then 1 po q days 2-5 03/07/07 ZITHROMAX 250 MG ORAL TABLET 304975 AZITHROMYCIN Greer ctive CEFDINIR 300 MG ORAL CAPSULE by mouth twice a day 2011 CEFDINIR 300 MG ORAL CAPSULE 20020704 CEFDINIR Inactive PREDNISONE 20 MG ORAL TABLET 2 tabs daily for 3 days, 1 tab daily for 3 days, 1/2 tab daily for 2 days PREDNISONE 20 MG ORAL T ABLET 150209 PREDNISONE Inactive AVELOX 400 MG ORAL TABLET [...] days 11/07 PREDNISONE 20 MG ORAL TABLET 106971 PREDNISONE Inactive LEVAQUIN 500 MG ORAL TABLET take one po QD LEVAQUIN 500 MG ORAL TABLET 046953 LEVOFLOXACIN Inactive AZITHROMYCIN 250 MG ORAL TABLET 2 po qd x 1 day, then 1 po q d x 4 days AZITHROMYCIN 250 MG ORAL TABLET 445942 AZITHROMY GIOVANNI Inactive MEDROL 4 MG ORAL TABLET THERAPY PACK 6 tabs on day 1, 5 tabs on day 2, 4 tabs on day 3, 3 tabs on day 4, 2 tabs on day 5, 1 tab on day 6 2013 MEDROL 4 MG ORAL TABLET THERAPY PACK 225148 METHYLPREDNISOLONE Greer ctive CHERATUSSIN AC 100-10 MG/5ML ORAL SYRUP 5ml po q6hr PRN Cough 20 13/04/14 CHERATUSSIN AC 100-10 MG/5ML ORAL SYRUP 160101 GUAIFENE SIN-CODEINE Inactive TRIAMCINOLONE ACETONIDE 0.1 % EXTERNAL CREAM apply three roger es daily prn rash TRIAMCINOLONE ACETONIDE 0.1 % EXTERNAL CREAM 101 4314 TRIAMCINOLONE ACETONIDE Inactive AZITHROMYCIN 250 MG ORAL TABLET 2 po qd x 1 day, then 1 po q d x 4 days AZITHROMYCIN 250 MG ORAL TABLET 168289 AZITHROMY GIOVANNI Inactive MEDROL 4 MG ORAL TABLET THERAPY PACK 6 pills x 1 day, then 5 pills x 1 day then 4 pills x 1 day, then 3 pills x 1 day, then 2 pills x 1 day, then 1 pill x 1 day, then stop MEDROL 4 MG ORAL TABLET THERAPY PACK 853810 METHYLPREDNISOLONE Inactive AMOXICILLIN 500 MG ORAL CAPSULE 1 tab by mouth 3 times daily x 10 days AMOXICILLIN 500 MG ORAL CAPSULE 401209 AMOXICILL IN Inactive AMOXICILLIN 500 MG ORAL CAPSULE 1 tab by mouth 3 times daily x 10 days AMOXICILLIN 500 MG ORAL CAPSULE 938671 AMOXICILL IN Inactive ZITHROMAX 250 MG ORAL TABLET 2 po today, then 1 po q days 2-5 20 12/08/14 ZITHROMAX 250 MG ORAL TABLET 664066 AZITHROMYCIN Alexis ctive AUGMENTIN 875-125 MG ORAL TABLET 1 po BID x 10 days 20 13/01/20 AUGMENTIN 875-125 MG ORAL TABLET AMOXICILLIN-POT CLAVULANATE Inactive ZITHROMAX Z-REYNA 250 MG ORAL TABLET 2 today, then 1 daily for 4 d ays ZITHROMAX Z-REYNA 250 MG ORAL TABLET 601347 AZITHROMYCIN Inactive ZITHROMAX 250 MG ORAL TABLET 2 po today, then 1 po q days 2-5 20 14/03/21 ZITHROMAX 250 MG ORAL TABLET 233152 AZITHROMYCIN Alexis ctive ZITHROMAX Z-REYNA 250 MG ORAL TABLET 2 today, then 1 daily for 4 d ays ZITHROMAX Z-REYNA 250 MG ORAL TABLET 161282 AZITHROMYCIN Inactive CEFDINIR 300 MG ORAL CAPSULE 1 po BID x 10 days 06/21 CEFDINIR 300 MG ORAL CAPSULE 854939 CEFDINIR Inactive ZITHROMAX 250 MG ORAL TABLET 2 po today, then 1 po q days 2-5 20 13/08/10 ZITHROMAX 250 MG ORAL TABLET 040366 AZITHROMYCIN Alexis ctive LEVAQUIN 500 MG ORAL TABLET 1 tablet by mouth daily 20 13/09/24 LEVAQUIN 500 MG ORAL TABLET 19971102 LEVOFLOXACIN Inactive SINGULAIR 10 MG ORAL TABLET 1 po qday for allergies 20 14/01/12 SINGULAIR 10 MG ORAL TABLET 20010504 MONTELUKAST SODIUM Inactive AMOXICILLIN 500 MG ORAL CAPSULE 2 po BID x 10 days 201 09/29/08 AMOXICILLIN 500 MG ORAL CAPSULE 911993 AMOXICILLIN Inactive PREDNISONE 20 MG ORAL TABLET 2 tabs daily for 3 days, 1 tab daily for 3 days, 1/2 tab daily for 2 days PREDNISONE 20 MG ORAL T ABLET 851197 PREDNISONE Inactive ZITHROMAX Z-REYNA 250 MG ORAL TABLET 2 today, then 1 daily for 4 d ays ZITHROMAX Z-REYNA 250 MG ORAL TABLET 437721 AZITHROMYCIN Inactive PREDNISONE 20 MG ORAL TABLET 2 tabs daily for 3 days, 1 tab daily for 3 days, 1/2 tab daily for 2 days PREDNISONE 20 MG ORAL T ABLET 657617 PREDNISONE Inactive ZITHROMAX 250 MG ORAL TABLET 2 po today, then 1 po q days 2-5 20 14/09/04 ZITHROMAX 250 MG ORAL TABLET 298461 AZITHROMYCIN Greer ctive AMOXICILLIN 500 MG ORAL CAPSULE 1 cap by mouth three times a day AMOXICILLIN 500 MG ORAL CAPSULE 696687 AMOXICILLIN Inactive TERBINAFINE HCL 250 MG ORAL TABLET 1 qDay for nail fungus 7 TERBINAFINE HCL 250 MG ORAL TABLET 753431 TERBINAFINE HCL Inact nael AUGMENTIN 875-125 MG ORAL TABLET 1 po BID x 10 days 20 16/03/22 AUGMENTIN 875-125 MG ORAL TABLET AMOXICILLIN-POT CLAVULANATE Inactive PREDNISONE 20 MG ORAL TABLET 2 po qd x 5 days PREDNISONE 20 MG ORAL TABLET 503841 PREDNISONE Inactive AZITHROMYCIN 250 MG ORAL TABLET 2 po qd x 1 day, then 1 po q d x 4 days AZITHROMYCIN 250 MG ORAL TABLET 964381 AZITHROMY GIOVANNI Inactive PREDNISONE 50 MG ORAL TABLET Take 50 mg dialy for 6 day s 7 PREDNISONE 50 MG ORAL TABLET 937393 PREDNISONE Inactive AUGMENTIN 875-125 MG ORAL TABLET 1 po BID x 10 days 20 18/04/16 AUGMENTIN 875-125 MG ORAL TABLET AMOXICILLIN-POT CLAVULANATE Inactive DOXYCYCLINE HYCLATE 100 MG ORAL CAPSULE 1 cap by mouth twice latasha ly DOXYCYCLINE HYCLATE 100 MG ORAL CAPSULE 6084643 DOXYCYCL INE HYCLATE Inactive PREDNISONE 20 MG ORAL TABLET Take 2 tabs day 1 and 2 and 1 t ab days 3 and 4 PREDNISONE 20 MG ORAL TABLET 100855 PREDNISONE Inactive AMOXICILLIN 500 MG ORAL CAPSULE 1 cap by mouth twice daily 10/21 AMOXICILLIN 500 MG ORAL CAPSULE 471375 AMOXICILLIN Inactive TRIAMCINOLONE ACETONIDE 0.1 % EXTERNAL OINTMENT Apply to affected areas TID PRN Rash/Itching for up 2 weeks TRIAMCINOLON E ACETONIDE 0.1 % EXTERNAL OINTMENT 3755308 TRIAMCINOLONE ACETONIDE Inactive ACYCLOVIR 800 MG ORAL TABLET 1 po 5 times daily x 7 days ACYCLOVIR 800 MG ORAL TABLET 886122 ACYCLOVIR Inactive Vital Signs Date Name Value [...] - Chem istry sodium, serum 139 mmol/L 140-455 6021/10/12 potassium, serum 3.8 mmol/L 3.5-5.2 chloride, serum [...] negative Encounters Code Encounter Date Provider Facility CPT-15416 Level 3 Est. Patient 14:16:41 CDT David Tin dle [facility] CPT-20639 Level 3 Est. Patient 13:57:55 CDT David Tin dle [facility] CPT-42305 Level 3 Est. Patient 16:08:07 CDT David Tin dle [facility] CPT-31710 Level 3 Est. Patient 16:53:54 CDT J Livan haas MD [facility]-31362 60103-Bjl Vst-Est Level IV 08:41:[address] Carlton Hu MD [facility] CPT-82496 Level 3 Est. Patient 09:46:49 [employer] David Antonino riverae [facility]-50348 54035-Kes Vst-Est Level III 11:12:16 CDT Yanet Bess DO [facility] CPT-26993 Level 3 Est. Patient 11:34:49 [employer] Perez Mora MD [facility] CPT-57594 Level 4 Est. Patient 09:51:32 [employer] Carlton rich MD [facility] CPT-85782 Level 3 Est. Patient 10:26:00 [employer] Elise stephenson [facility] CPT-52525 Level 3 Est. Patient 13:35:41 [employer] Carlton rich MD [facility] CPT-62062 Level 3 Est. Patient 10:03:52 [employer] Carlton rich MD [facility] CPT-55450 Level 3 Est. Patient 12:17:50 CDT Hugo Restrepo MD [facility] CPT-19404 Level 3 Est. Patient 13:42:38 CDT Elise Are ll [facility] CPT-35358 Level 3 Est. Patient 13:23:51 CDT Diya Mariana mango [facility] CPT-97679 Level 3 Est. Patient 14:22:19 [employer] Diya cobian [facility] CPT-93217 Level 3 Est. Patient 10:11:46 CDT Carlton rich MD [facility] CPT-72502 Level 3 Est. Patient 17:29:43 CDT Elise Are [facility] CPT-59950 Level 3 Est. Patient 11:58:06 CDT Elise Are [facility] CPT-46356 Level 4 Est. Patient 14:36:51 CDT Carlton rich MD [facility] CPT-19744 Level 3 Est. Patient 18:16:00 [employer] Blaine HERNANDEZ [facility] CPT-66067 Level 3 Est. Patient 09:45:49 [employer] Carlton rich MD [facility] CPT-92735 Level 3 Est. Patient 13:19:20 CDT Carlton rich MD [facility] CPT-43547 Level 3 Est. Patient 13:06:43 CDT Ridge tam DO [facility] CPT-61492 Level 3 Est. Patient 10:03:07 CDT Perez Mora MD [facility] CPT-16108 Level 3 Est. Patient 19:50:35 [employer] Carlton rich MD [facility] CPT-46465 Level 4 Est. Patient 18:05:01 [employer] Carlton rich MD [facility] CPT-24625 Level 3 Est. Patient 10:45:55 [employer] Hugo Restrepo MD [facility]-15894 Level 3 Est. Patient 14:12:49 CDT Griffin HERNANDEZ [facility]-02998 Level 3 Est. Patient 17:37:24 CDT Carlton rich MD [facility]-39454 Level 3 Est. Patient 16:51:54 CDT Carlton rich MD [facility]-52979 Level 3 Est. Patient 12:18:11 CDT Hugo Restrepo MD [facility]-81977 Level 3 Est. Patient 11:30:25 CDT Marcy crisostomo MD PhD [facility]-32561 Level 3 Est. Patient 12:00:47 [employer] Carlton rich MD [facility]-44701 Level 3 Est. Patient 16:31:06 [employer] Carlton rich MD [facility]-18748 Level 3 Est. Patient 16:23:24 [employer] Ridge tam DO [facility] CPT-17855 Level 3 Est. Patient 12:34:12 CDT Carlton rich MD [facility]-48125 Level 2 Est. Patient 15:43:33 CDT Robi armstrong MD [facility]-88501 Level 4 Est. Patient 14:04:44 CDT Carlton rich MD [facility]-84139 Level 3 Est. Patient 05:47:59 CDT Ridge tam [facility]-38850 Level 3 Est. Patient 13:12:53 [employer] Carlton rich MD [facility] CPT-80684 Level 3 Est. Patient 14:26:53 CDT Hugo [...] CPT-J1100 Decadron 6mg (Dexamethasone) 14:32:13 CDT 2 CPT-45717 Hip bilat min 2V w AP pelvis 13:16:20 CDT 2 CPT-21187 Pelvis only 13:07:33 CDT CPT-99614 Spec Collection and Handling Fee 11:25:12 C DT CPT-99677 Fluzone Quadrivalent Intramuscular Suspe nsion 0.5 ML 14:31:55 CDT CPT-14242 Abx/Therapy Injection 13:28:47 [employer] CPT-J2930 Solu Medrol 125 mg (Methyl Prednisolone Sodium Succinate) 12:00:47 [employer] CPT-00150 Venipuncture Draw Fee 11:33:31 CDT CPT-60490 EKG Trac and Interp 11:21:09 CDT CPT-31754 Chest 2V Frontal and Lat 11:21:09 CDT 12/15 CPT-46127 Venipuncture Draw Fee 08:02:34 CDT CPT-10311 Chest 2V Frontal and Lat 05:47:59 CDT 06/05
--- OUTSIDE RECORDS SUMMARY | 2019-10-08 10:03 | XMS REPORT | Clinical Summary ---
Author Author Caitlin, Juliana Martinez Organization [facility] Address Unknown Phone [...] adult BMI 35-35.9 Refinement David Marianne CORPORATE QUALITY ENGINEER Body Mass Index 35.0-35.9, adult BMI 33-33.9 Active David Marianne CORPORATE QUALITY ENGINEER Body Mass Index 35.0-35.9, adult Upper respiratory infection, viral 465.9 Active 2 Perez Mora MD Acute upper respiratory infections of un specified site Obesity Class I (BMI 30-34.9) Refinement Jose Torres RN Obesity, unspecified Morbid obesity due to excess [facility] David Marianneamisha RICEN Obesity, [...] skin eruption 782.1 Active David Marianne [employer]PORATE QUALITY ENGINEER Rash and other nonspecific skin eruption Pharyngitis, acute / sore throat 462 Active 201 12/06/23 David Marianne CORPORATE QUALITY ENGINEER Acute pharyngitis Shingles 053.9 Active David Marianne CORPORATE QUALITY ENGINEER Herpes zoster without mention of complication BRONCHITIS [...] Pharyngitis acute ICD-462 Inactive Hugo gore MD SINUSITIS, ACUTE ICD-461.9 Inactive Hugo dominguez MD Rhinitis, acute ICD-460 Inactive Hugo Ochoa MD Sinusitis ICD-473.9 Inactive Hugo Restrepo MD Bronchitis ICD-490 Inactive Hugo Restrepo MD 201 10/02/29 URI ICD-465.9 Inactive Ridge Bess DO Medication List Medication Instructions Start Date Stop Date Generic Name NDC Status Provider Patient Instruction TYLENOL WITH CODEINE #3 300-30 MG ORAL TABLET ACETAMINOPHEN-CODEINE 34105966410 Active David Marianne CORPORATE QUALITY ENGINEER A ctive TRIAMCINOLONE ACETONIDE 0.1 % EXTERNAL CREAM apply bid spari ngly to rash TRIAMCINOLONE ACETONIDE 77881453098 Active David Marianne CORPORATE QUALITY ENGINEER Active TYLENOL WITH CODEINE #3 300-30 MG ORAL TABLET 1-2 po q6hr PRN Pa in ACETAMINOPHEN-CODEINE 58906578344 No Longer Active David Marianne AP RN Active ACYCLOVIR 800 MG ORAL TABLET 1 po 5 times daily x 7 days ACYCLOVIR 73048588508 No Longer Active David Marianne CORPORATE QUALITY ENGINEER Active TOPAMAX 100 MG ORAL TABLET 1 by mouth twice daily TOPIRAMATE 47425320619 Active Columba Raida Active TRIAMCINOLONE ACETONIDE 0.1 % EXTERNAL OINTMENT Apply to affected areas TID PRN Rash/Itching for up 2 weeks TRIAMCINOLONE ACETON KAYLA 26832409499 No Longer Active David Marianne CORPORATE QUALITY ENGINEER Active AMOXICILLIN 500 MG ORAL CAPSULE 1 cap by mouth twice daily 10/21 AMOXICILLIN 77992234255 No Longer Active David Marianne CORPORATE QUALITY ENGINEER Active ELMIRON 100 MG ORAL CAPSULE 2 capsules in the morning and 1 capsule at night PENTOSAN POLYSULFATE SODIUM 04352523688 Active Cinthia H art DIRECTOR NEWS Active CYMBALTA 30 MG ORAL CAPSULE DELAYED RELEASE PARTICLES 1 cap by mouth daily for depression DULOXETINE HCL 24999151668 No Longer Active Carlton Hu MD Active CYMBALTA 60 MG ORAL CAPSULE DELAYED RELEASE PARTICLES 1 cap by mouth daily for mood and pain DULOXETINE HCL 30520420279 Active Carlton Hu MD Active TUSSIONEX PENNKINETIC ER 10-8 MG/5ML ORAL SUSPENSION E XTENDED RELEASE 5ml po q12hr PRN Cough HYDROCOD POLST-CHLORPHEN POLST 10371496742 Active David Marianne CORPORATE QUALITY ENGINEER Active PREDNISONE 20 MG ORAL TABLET Take 2 tabs day 1 and 2 and 1 t ab days 3 and 4 PREDNISONE 98809921782 No Longer Active David Marianne CORPORATE QUALITY ENGINEER Active DOXYCYCLINE HYCLATE 100 MG ORAL CAPSULE 1 cap by mouth twice latasha ly DOXYCYCLINE HYCLATE 80185097932 No Longer Active David Marianne CORPORATE QUALITY ENGINEER Active TOPAMAX 100 MG ORAL TABLET Take 1 tablet po bid TOPIRAMATE 24972423555 No Longer Active David Marianne CORPORATE QUALITY ENGINEER Active TUSSIONEX PENNKINETIC ER 10-8 MG/5ML ORAL SUSPENSION E XTENDED RELEASE 5ml po q12hr PRN Cough HYDROCOD POLST-CHLORPHEN POLST 5 0808254508 No Longer Active David Marianne CORPORATE QUALITY ENGINEER Active AUGMENTIN 875-125 MG ORAL TABLET 1 po BID x 10 days 18/04/16 AMOXICILLIN-POT CLAVULANATE 58048567674 No Longer Active David Marianne CORPORATE QUALITY ENGINEER Active PREDNISONE 50 MG ORAL TABLET Take 50 mg dialy for 6 day s 7 PREDNISONE 11838019689 No Longer Active David Marianne CORPORATE QUALITY ENGINEER Active TUSSIONEX PENNKINETIC ER 10-8 MG/5ML ORAL SUSPENSION E XTENDED RELEASE 5ml po q12hr PRN Cough HYDROCOD POLST-CHLORPHEN POLST 5 5738044189 No Longer Active Cherelle Torres RN Active PREDNISONE 20 MG ORAL TABLET two tabs by mouth today, then one tab by mouth days two and three and four PREDNISONE 46665493113 No Lo nger Active Cherelle Torres RN Active AZITHROMYCIN 250 MG ORAL TABLET 2 po qd x 1 day, then 1 po q d x 4 days AZITHROMYCIN 82953898474 No Longer Active Ridge Bess DO Active PREDNISONE 20 MG ORAL TABLET 2 po qd x 5 days P REDNISONE 94119118544 No Longer Active Perez Mora MD Active PROAIR HFA 108 (90 BASE) MCG/ACT INHALATION AEROSOL SO LUTION 2 puffs four times a day as needed ALBUTEROL SULFATE 95331880182 No Long er Active Becky FUENTES Active ASPIRIN 81 MG ORAL TABLET 1 po qd ASPIRIN 30028728986 Active Carlton Hu MD Active PREDNISONE 20 MG ORAL TABLET 1 tab twice daily for 3 d ay, then one daily for three days PREDNISONE 53722902613 No Longer Active Carlton Hu MD Active AUGMENTIN 875-125 MG ORAL TABLET 1 po BID x 10 days 16/03/22 AMOXICILLIN-POT CLAVULANATE 71910287893 No Longer Active Elise Garcia APRN Active TERBINAFINE HCL 250 MG ORAL TABLET 1 qDay for nail fungus 7 TERBINAFINE HCL 12962737792 No Longer Active Carlton Hu MD A ctive AMOXICILLIN 500 MG ORAL CAPSULE 1 cap by mouth three times a day AMOXICILLIN 26708941597 No Longer Active Carlton Hu MD Active ELMIRON 100 MG ORAL CAPSULE 2 tablets in the am and 1 tablet at hs PENTOSAN POLYSULFATE SODIUM 43747292528 No Longer Active Robert Hu MD Active MUCINEX D 60-600 MG ORAL TABLET EXTENDED RELEASE 12 HOUR 1 t ab po q am PSEUDOEPHEDRINE-GUAIFENESIN 89057315309 No Longer Act nael Carlton Hu MD Active MUCINEX DM MAXIMUM STRENGTH 60-1200 MG ORAL TABLET EXT ENDED RELEASE 12 HOUR 1 tab po q am DEXTROMETHORPHAN-GUAIFENESIN 98567127394 No Longer Active Carlton Hu MD Active TUSSIONEX PENNKINETIC ER 10-8 MG/5ML ORAL SUSPENSION E XTENDED RELEASE 5ml po q12hr PRN Cough HYDROCOD POLST-CHLORPHEN POLST 5 2481837207 No Longer Active Carlton Hu MD Active POTASSIUM CHLORIDE ER 20 MEQ ORAL TABLET EXTENDED RELE ASE Take 1 by mouth 4 times daily for 7 days POTASSIUM CHLORIDE 95495213091 No Longer Active Carlton Hu MD Active ZITHROMAX 250 MG ORAL TABLET 2 po today, then 1 po q days 2-5 20 14/09/04 AZITHROMYCIN 08926271878 No Longer Active Elise Garcia APRN Active TUSSIONEX PENNKINETIC ER 10-8 MG/5ML ORAL SUSPENSION E XTENDED RELEASE 5 ml twice a day as needed for cough HYDROCOD POLST-CHLORPH EN POLST 07491571779 No Longer Active Elise Garcia APRN Active MONTELUKAST SODIUM 10 MG ORAL TABLET 1 po daily for Allergy MONTELUKAST SODIUM 93606005838 Active Carlton Hu MD Ac tive TUSSIONEX PENNKINETIC ER 10-8 MG/5ML ORAL SUSPENSION E XTENDED RELEASE 5ml po q12hr PRN Cough HYDROCOD POLST-CHLORPHEN POLST 5 5487381685 No Longer Active Hugo Restrepo MD Active GABAPENTIN 100 MG ORAL CAPSULE 1 po BID for fibromyalgia GABAPENTIN 39459641946 Active ALFREDO Holly Active LYRICA 100 MG ORAL CAPSULE Take 1 tab po BID for fibromyalgia 20 11/08/21 PREGABALIN 67771860363 No Longer Active Elise Garcia APRN A ctive PREDNISONE 20 MG ORAL TABLET 2 tabs daily for 3 days, 1 tab daily for 3 days, 1/2 tab daily for 2 days PREDNISONE 82555044438 No Longer Active Diya De Guzman APRN Active TUSSIONEX PENNKINETIC ER 10-8 MG/5ML ORAL SUSPENSION E XTENDED RELEASE 5 mL PO q 12 hrs PRN cough HYDROCOD POLST-CHLORPHEN POLST 863123 70215 No Longer Active Diya De Guzman CORPORATE QUALITY ENGINEER Active FLUTICASONE PROPIONATE 50 MCG/ACT NASAL SUSPENSION 2 s prays each nostril daily until bottle is empty FLUTICASONE PROPIONATE 764289105 99 No Longer Active Jillina Cesarl CORPORATE QUALITY ENGINEER Active ASMANEX 60 METERED DOSES 220 MCG/INH INHALATION AEROSO L POWDER BREATH ACTIVATED 1 puff bid with rinse after MOMETASONE FUROATE 6573767 4102 No Longer Active Venullina Gege CORPORATE QUALITY ENGINEER Active ZITHROMAX Z-REYNA 250 MG ORAL TABLET 2 today, then 1 daily for 4 d ays AZITHROMYCIN 46302703512 No Longer Active Elise Garcia APRN Active TUSSIONEX PENNKINETIC ER 10-8 MG/5ML ORAL SUSPENSION E XTENDED RELEASE 5ml po q12hr PRN Cough HYDROCOD POLST-CHLORPHEN POLST 5 3458524871 No Longer Active Elise Garcia APRN Active PREDNISONE 20 MG ORAL TABLET 2 tabs daily for 3 days, 1 tab daily for 3 days, 1/2 tab daily for 2 days PREDNISONE 16521854404 No Longer Active Diya De Guzman APRN Active AMOXICILLIN 500 MG ORAL CAPSULE 2 po BID x 10 days 201 09/29/08 AMOXICILLIN 09506518756 No Longer Active Diya De Guzman APRN Act nael SINGULAIR 10 MG ORAL TABLET 1 po qday for allergies 20 14/01/12 MONTELUKAST SODIUM 98066446369 No Longer Active Carlton Hu MD Active LEVAQUIN 500 MG ORAL TABLET 1 tablet by mouth daily 20 13/09/24 LEVOFLOXACIN 84231278503 No Longer Active Carlton Hu MD Acti ve FLUTICASONE PROPIONATE 50 MCG/ACT NASAL SUSPENSION 2 s prays each nostril daily for 2 weeks, then 1 spray each nostril daily. FLUTICASONE PROPIONATE 92980124221 Active Carlton uH MD Active ZITHROMAX 250 MG ORAL TABLET 2 po today, then 1 po q days 2-5 20 13/08/10 AZITHROMYCIN 09584990440 No Longer Active Elise Arell CORPORATE QUALITY ENGINEER Active XANAX 0.5 MG ORAL TABLET one tablet by mouth daily prn anxiety 2015 ALPRAZOLAM 43575374928 Active ALFREDO Holly Active CEFDINIR 300 MG ORAL CAPSULE 1 po BID x 10 days CEFDINIR 58148382595 No Longer Active Carlton Hu MD Active ZOCOR 40 MG ORAL TABLET 1 tab by mouth daily SI MVASTATIN 81842731298 No Longer Active Carlton Hu MD Active CYCLOBENZAPRINE HCL 10 MG ORAL TABLET 1 tablet by mouth BID prn had pain CYCLOBENZAPRINE HCL 86301898967 No Longer Active Jayden Hu MD Active LEVOFLOXACIN 500 MG ORAL TABLET 1 tab PO daily x 10 days LEVOFLOXACIN 23504175408 No Longer Active Carlton Hu MD Acti ve PREDNISONE 20 MG ORAL TABLET 3 tab PO qd x 2d, 2 tab P O qd x 2d, 1 tab PO qd x 2d, 1/2 tab PO qd x 2d PREDNISONE 42193527632 No Lo nger Active Carlton Hu MD Active FLUTICASONE PROPIONATE 50 MCG/ACT NASAL SUSPENSION 1 t o 2 sprays each nostril daily FLUTICASONE PROPIONATE 90884217783 No Longer Ac tive Blaine HERNANDEZ Active CHERATUSSIN AC 100-10 MG/5ML ORAL SYRUP 1 tsp by mouth every 4 hours as needed for cough GUAIFENESIN-CODEINE 95958054266 No Longe r Active Blaine HERNANDEZ Active PROMETHAZINE-CODEINE 6.25-10 MG/5ML ORAL SYRUP 1 tsp b y mouth every 6 hours if needed for cough PROMETHAZINE-CODEINE 23333486433 No Longer Active Blaine HERNNADEZ Active CHERATUSSIN AC 100-10 MG/5ML ORAL SYRUP 1 tsp by mouth every 4 hours as needed for cough GUAIFENESIN-CODEINE 66791471435 No Longe r Active Blaine HERNANDEZ Active ZITHROMAX Z-REYNA 250 MG ORAL TABLET 2 today, then 1 daily for 4 d ays AZITHROMYCIN 19552997682 No Longer Active Columba Raida Act nael ZITHROMAX 250 MG ORAL TABLET 2 po today, then 1 po q days 2-5 20 14/03/21 AZITHROMYCIN 86327001811 No Longer Active Carlton Hu MD Active ZITHROMAX Z-REYNA 250 MG ORAL TABLET 2 today, then 1 daily for 4 d ays AZITHROMYCIN 31228525900 No Longer Active Columba Raida Act nael AUGMENTIN 875-125 MG ORAL TABLET 1 po BID x 10 days 13/01/20 AMOXICILLIN-POT CLAVULANATE 16618138392 No Longer Active Diya De Guzman APRN Active ZITHROMAX 250 MG ORAL TABLET 2 po today, then 1 po q days 2-5 20 12/08/14 AZITHROMYCIN 02947900738 No Longer Active Carlton Hu MD Active TRAMADOL HCL 50 MG ORAL TABLET 1 po tid with ES Tylenol TRAMADOL HCL 96359729805 Active ALFREDO Holly Active PREMARIN 0.625 MG ORAL TABLET TAKE 1 TAB BY MOUTH DAILY ESTROGENS CONJUGATED 92076172993 No Longer Active Ridge Bess DO A ctive CYMBALTA 30 MG ORAL CAPSULE DELAYED RELEASE PARTICLES 1 cap by mouth daily DULOXETINE HCL 97262601840 No Longer Active Ridge Ya ee DO Active AMOXICILLIN 500 MG ORAL CAPSULE 1 tab by mouth 3 times daily x 10 days AMOXICILLIN 94194569261 No Longer Active Carlton bustamante MD Active AMOXICILLIN 500 MG ORAL CAPSULE 1 tab by mouth 3 times daily x 10 days AMOXICILLIN 08784996813 No Longer Active Carlton bustamante MD Active PROMETHAZINE-CODEINE 6.25-10 MG/5ML ORAL SYRUP 1 tsp b y mouth every 8 hours prn cough PROMETHAZINE-CODEINE 02942492111 No Longer Acti ve Carlton Hu MD Active MEDROL 4 MG ORAL TABLET THERAPY PACK 6 pills x 1 day, then 5 pills x 1 day then 4 pills x 1 day, then 3 pills x 1 day, then 2 pills x 1 day, then 1 pill x 1 day, then stop METHYLPREDNISOLONE 68821198105 No Long er Active Perez Mora MD Active AZITHROMYCIN 250 MG ORAL TABLET 2 po qd x 1 day, then 1 po q d x 4 days AZITHROMYCIN 01628048352 No Longer Active Perez Ambriz MD Active SYMBICORT 160-4.5 MCG/ACT INHALATION AEROSOL 2 puffs bid wit h rinse after BUDESONIDE-FORMOTEROL FUMARATE 92078319217 N o Longer Active Perez Mora MD Active LYRICA 75 MG ORAL CAPSULE TAKE 1 CAPSULE BY MOUTH TWICE DAILY PREGABALIN 46906383147 No Longer Active Carlton Hu MD Acti ve TOPAMAX 25 MG ORAL TABLET 1 qHS x 1 week, then 1 BID x 1 week, then 1 qAM and 2 qHS x 1 week, then 2 BID (migraine prevention) T OPIRAMATE 41865786816 No Longer Active Jerica FUENTES Active TOPAMAX 50 MG ORAL TABLET take 1 tab po BID for migraines. 07/02 TOPIRAMATE 57027167924 No Longer Active Jerica FUENTES Active TRIAMCINOLONE ACETONIDE 0.1 % EXTERNAL CREAM apply three roger es daily prn rash TRIAMCINOLONE ACETONIDE 51775108675 No Longer Active Carlton Hu MD Active PAXIL 40 MG ORAL TABLET take 1 tab po qday for depression 0 PAROXETINE HCL 50099492114 Active Carlton Hu MD Active CHERATUSSIN AC 100-10 MG/5ML ORAL SYRUP 5ml po q6hr PRN Cough 20 13/04/14 GUAIFENESIN-CODEINE 56067188409 No Longer Active Carlton Hu MD Active MEDROL 4 MG ORAL TABLET THERAPY PACK 6 tabs on day 1, 5 tabs on day 2, 4 tabs on day 3, 3 tabs on day 4, 2 tabs on day 5, 1 tab on day 6 2013 METHYLPREDNISOLONE 85485368027 No Longer Active Perez Mora MD Active AZITHROMYCIN 250 MG ORAL TABLET 2 po qd x 1 day, then 1 po q d x 4 days AZITHROMYCIN 33132261826 No Longer Active Perez Ambriz MD Active PROPRANOLOL HCL 60 MG ORAL TABLET 1 PO Q D PROPRANOLOL HCL 51743830801 No Longer Active Perez Mora MD Activ e CHERATUSSIN AC 100-10 MG/5ML ORAL SYRUP take one tsp po Q 6h ours prn cough GUAIFENESIN-CODEINE 55959620669 No Longer Active Zia Mora MD Active AUGMENTIN 875-125 MG ORAL TABLET 1 tab by mouth twice daily with food AMOXICILLIN-POT CLAVULANATE 68952175476 No Longer Act nael Perez Mora MD Active CHERATUSSIN AC 100-10 MG/5ML ORAL SYRUP 1 tsp by mouth every 4 hours as needed for cough GUAIFENESIN-CODEINE 26434326460 No Longe r Active Hugo Restrepo MD Active ACETAMINOPHEN-CODEINE #3 300-30 MG ORAL TABLET 1 PO Q 4-6 HRS HI N PAIN ACETAMINOPHEN-CODEINE 06676348145 No Longer Active Hugo Restrepo MD Active LEVAQUIN 500 MG ORAL TABLET take one po QD LEVO FLOXACIN 17240135350 No Longer Active Griffin HERNANDEZ Active PREDNISONE 20 MG ORAL TABLET Take 3 tabs daily for 3 d ays, 2 tabs daily for 3 days, 1 tab daily for 3 days, 1/2 tab daily for 3 days 11/07 PREDNISONE 06854492080 No Longer Active Carlton Hu MD Acti ve AVELOX 400 MG ORAL TABLET 1 tab by mouth daily MOXIFLOXACIN HCL 24307072363 No Longer Active Carlton Hu MD Active CHERATUSSIN AC 100-10 MG/5ML ORAL SYRUP 1 tsp by mouth every 4 hours as needed for cough GUAIFENESIN-CODEINE 77673912767 No Longe r Active Hugo Restrepo MD Active AVELOX 400 MG ORAL TABLET 1 tab by mouth daily MOXIFLOXACIN HCL 29427320974 No Longer Active Marcy De La Rosa MD PhD Active TERBINAFINE HCL 250 MG ORAL TABLET 1 qDay T ERBINAFINE HCL 75854596560 No Longer Active Marcy De La Rosa MD PhD Active CHERATUSSIN AC 100-10 MG/5ML ORAL SYRUP 1 tsp by mouth every 4 hours as needed for cough GUAIFENESIN-CODEINE 98091619854 No Longe r Active Marcy De La Rosa MD PhD Active AVELOX 400 MG ORAL TABLET 1 tab by mouth daily MOXIFLOXACIN HCL 91754642922 No Longer Active Marcy De La Rosa MD PhD Active HYDROCODONE-ACETAMINOPHEN 5-325 MG ORAL TABLET 1 po q 6hr PRN co ugh HYDROCODONE-ACETAMINOPHEN 92670357475 No Longer Active Marcy De La Rosa MD PhD Active PREDNISONE 20 MG ORAL TABLET 2 tabs daily for 3 days, 1 tab daily for 3 days, 1/2 tab daily for 2 days PREDNISONE 01916337713 No Longer Active Carlton Hu MD Active CEFDINIR 300 MG ORAL CAPSULE by mouth twice a day 2011 CEFDINIR 32528911563 No Longer Active Carlton Hu MD Acti ve HYDROCHLOROTHIAZIDE 25 MG ORAL TABLET 1 TAB PO DAILY HYDROCHLOROTHIAZIDE 59330454906 Active Carlton Hu MD A ctive ACETAMINOPHEN-CODEINE #3 300-30 MG ORAL TABLET 1 tablet po q 4-6 hrs prn pain ACETAMINOPHEN-CODEINE 38953730023 No Longer Active Ridge Bess DO Active ZITHROMAX 250 MG ORAL TABLET 2 po today, then 1 po q days 2-5 20 03/07/07 AZITHROMYCIN 35878362122 No Longer Active Carlton Hu MD Active CHERATUSSIN AC 100-10 MG/5ML ORAL SYRUP take 1 tsp po q4-6 h ours prn cough GUAIFENESIN-CODEINE 22079894854 No Longer Active Jayden Hu MD Active ACETAMINOPHEN-CODEINE #3 300-30 MG ORAL TABLET 1 PO Q 4-6 HR PRN PAIN ACETAMINOPHEN-CODEINE 93690864339 No Longer Active Da raimundo Hu MD Active LORTAB 7.5-500 MG/15ML ORAL ELIXIR 7.5 ml po q 4 hour prn cough HYDROCODONE-ACETAMINOPHEN 19698654008 No Longer Active Carlton Hu MD Active PREDNISONE 20 MG ORAL TABLET 1 po bid 3 days, then 1 po q day 3 days PREDNISONE 65149972848 No Longer Active Carlton Hu MD Active CEFDINIR 300 MG ORAL CAPSULE by mouth twice a day 2011 CEFDINIR 45994348226 No Longer Active Carlton Hu MD Acti ve CEFDINIR 300 MG ORAL CAPSULE by mouth twice a day 2010 CEFDINIR 63184876540 No Longer Active Carlton Hu MD Acti ve CEFDINIR 300 MG ORAL CAPSULE by mouth twice a day 2010 CEFDINIR 14639761633 No Longer Active Carlton Hu MD Acti ve TESSALON PERLES 100 MG ORAL CAPSULE 1 tablet by mouth 3 times daily as needed for cough BENZONATATE 29518532041 No Longer Active Carlton Hu MD Active CEFDINIR 300 MG ORAL CAPSULE by mouth twice a day 2010 CEFDINIR 50411709486 No Longer Active Carlton Hu MD Acti ve ZITHROMAX Z-REYNA 250 MG ORAL TABLET 2 today, then 1 daily for 4 d ays AZITHROMYCIN 16645723259 No Longer Active Hugo Restrepo MD Active TESSALON PERLES 100 MG ORAL CAPSULE 1 tablet by mouth 3 times daily as needed for cough TESSALON PERLES 100 MG ORAL CAPSULE 68819 7 BENZONATATE Inactive PREDNISONE 20 MG ORAL TABLET 1 po bid 3 days, then 1 po q day 3 days PREDNISONE 20 MG ORAL TABLET 415846 PREDNISONE Greer ctive LORTAB 7.5-500 MG/15ML ORAL [...] cough CHERATUSSIN AC 100-10 MG/5ML ORAL SYRUP 418089 GUAIFENESIN-CODEINE Inactive ACETAMINOPHEN-CODEINE #3 300-30 MG ORAL TABLET 1 tablet po q 4-6 hrs prn pain ACETAMINOPHEN-CODEINE #3 300-30 MG ORAL TABLET ACETAMINOPHEN-CODEINE Inactive HYDROCODONE-ACETAMINOPHEN 5-325 MG ORAL TABLET 1 po q 6hr PRN co ugh HYDROCODONE-ACETAMINOPHEN 5-325 MG ORAL TABLET 660656 HYDROCODONE-ACETAMINOPHEN Inactive AVELOX 400 MG ORAL TABLET 1 tab by mouth daily AVELOX 400 MG ORAL TABLET MOXIFLOXACIN HCL Inactive CHERATUSSIN AC 100-10 MG/5ML ORAL SYRUP 1 tsp by mouth every 4 hours as needed for cough CHERATUSSIN AC 100-10 MG/5ML ORAL SYRUP 9 03680 GUAIFENESIN-CODEINE Inactive TERBINAFINE HCL 250 MG ORAL TABLET 1 qDay 07/08 TERBINAFINE HCL 250 MG ORAL TABLET 577988 TERBINAFINE HCL Inactive CHERATUSSIN AC 100-10 MG/5ML ORAL SYRUP 1 tsp by mouth every 4 hours as needed for cough CHERATUSSIN AC 100-10 MG/5ML ORAL SYRUP 9 15117 GUAIFENESIN-CODEINE Inactive ACETAMINOPHEN-CODEINE #3 300-30 MG ORAL TABLET 1 PO Q 4-6 HRS HI N PAIN ACETAMINOPHEN-CODEINE #3 300-30 MG ORAL TABLET ACETAMINOPHEN-CODEINE Inactive CHERATUSSIN AC 100-10 MG/5ML ORAL SYRUP 1 tsp by mouth every 4 hours as needed for cough CHERATUSSIN AC 100-10 MG/5ML ORAL SYRUP 9 16646 GUAIFENESIN-CODEINE Inactive AUGMENTIN 875-125 MG ORAL TABLET 1 tab by mouth twice daily with food AUGMENTIN 875-125 MG ORAL TABLET AMOXICIL MADELINE-POT CLAVULANATE Inactive CHERATUSSIN AC 100-10 MG/5ML ORAL SYRUP take one tsp po Q 6h ours prn cough CHERATUSSIN AC 100-10 MG/5ML ORAL SYRUP 688085 GUAIFENESIN-CODEINE Inactive PROPRANOLOL HCL 60 MG ORAL TABLET 1 PO Q D PROPRANOLOL HCL 60 MG ORAL TABLET 089824 PROPRANOLOL HCL Inactive TOPAMAX 50 MG ORAL TABLET take 1 tab po BID for migraines. 07/02 TOPAMAX 50 MG ORAL TABLET 492557 TOPIRAMATE Inacti ve TOPAMAX 25 MG ORAL TABLET 1 qHS x 1 week, then 1 BID x 1 week, then 1 qAM and 2 qHS x 1 week, then 2 BID (migraine prevention) TOPAMAX 25 MG ORAL TABLET 341760 TOPIRAMATE Inactive LYRICA 75 MG ORAL CAPSULE TAKE 1 CAPSULE BY MOUTH TWICE DAILY LYRICA 75 MG ORAL CAPSULE 879644 PREGABALIN Inactive SYMBICORT 160-4.5 MCG/ACT INHALATION AEROSOL 2 puffs bid wit h rinse after SYMBICORT 160-4.5 MCG/ACT INHALATION AEROSOL BUDESONIDE- FORMOTEROL FUMARATE Inactive PROMETHAZINE-CODEINE 6.25-10 MG/5ML ORAL SYRUP 1 tsp b y mouth every 8 hours prn cough PROMETHAZINE-CODEINE 6.25-10 MG/ 5ML ORAL SYRUP 098371 PROMETHAZINE-CODEINE Inactive CYMBALTA 30 MG ORAL CAPSULE DELAYED RELEASE PARTICLES 1 cap by mouth daily CYMBALTA 30 MG ORAL CAPSULE DELAYED RELE ASE PARTICLES 987054 DULOXETINE HCL Inactive PREMARIN 0.625 MG ORAL TABLET TAKE 1 TAB BY MOUTH DAILY PREMARIN 0.625 MG ORAL TABLET ESTROGENS CONJUGATED Inactive CHERATUSSIN AC 100-10 MG/5ML ORAL SYRUP 1 tsp by mouth every 4 hours as needed for cough CHERATUSSIN AC 100-10 MG/5ML ORAL SYRUP 9 88421 GUAIFENESIN-CODEINE Inactive PROMETHAZINE-CODEINE 6.25-10 MG/5ML ORAL SYRUP 1 tsp b y mouth every 6 hours if needed for cough PROMETHAZINE-CODEINE 6.25-10 MG/5ML ORAL SYRUP 446147 PROMETHAZINE-CODEINE Inactive CHERATUSSIN AC 100-10 MG/5ML ORAL SYRUP 1 tsp by mouth every 4 hours as needed for cough CHERATUSSIN AC 100-10 MG/5ML ORAL SYRUP 9 70099 GUAIFENESIN-CODEINE Inactive FLUTICASONE PROPIONATE 50 MCG/ACT NASAL SUSPENSION 1 t o 2 sprays each nostril daily FLUTICASONE PROPIONATE 50 MCG/AC T NASAL SUSPENSION 6404008 FLUTICASONE PROPIONATE Inactive PREDNISONE 20 MG ORAL TABLET 3 tab PO qd x 2d, 2 tab P O qd x 2d, 1 tab PO qd x 2d, 1/2 tab PO qd x 2d PREDNISONE 20 MG ORAL TAB LET 753549 PREDNISONE Inactive LEVOFLOXACIN 500 MG ORAL TABLET 1 tab PO daily x 10 days LEVOFLOXACIN 500 MG ORAL TABLET 580722 LEVOFLOXACIN Inactive CYCLOBENZAPRINE HCL 10 MG ORAL TABLET 1 tablet by mouth BID prn had pain CYCLOBENZAPRINE HCL 10 MG ORAL TABLET 696854 CYCLOBENZAPRINE HCL Inactive ZOCOR 40 MG ORAL TABLET 1 tab by mouth daily 4 ZOCOR 40 MG ORAL TABLET 533223 SIMVASTATIN Inactive TUSSIONEX PENNKINETIC ER 10-8 MG/5ML [...] FLUTICASONE PROPIO EFE 50 MCG/ACT NASAL SUSPENSION 6578471 FLUTICASONE PROPIONATE Inactive TUSSIONEX PENNKINETIC ER 10-8 MG/5ML ORAL SUSPENSION E XTENDED RELEASE 5 mL PO q 12 hrs PRN cough TUSSIONEX PENNKINETI C ER 10-8 MG/5ML ORAL SUSPENSION EXTENDED RELEASE HYDROCOD POLST-CHLORPHEN POLST I nactive LYRICA 100 MG ORAL CAPSULE Take 1 tab po BID for fibromyalgia 20 11/08/21 LYRICA 100 MG ORAL CAPSULE 622547 PREGABALIN Inact nael TUSSIONEX PENNKINETIC ER 10-8 [...] three days PREDNISONE 20 MG ORAL TABLET 569780 PREDNIS ONE Inactive PROAIR HFA 108 (90 BASE) MCG/ACT INHALATION AEROSOL SO LUTION 2 puffs four times a day as needed PROAIR HFA 108 (90 B ASE) MCG/ACT INHALATION AEROSOL SOLUTION ALBUTEROL SULFATE Inactive PREDNISONE 20 MG ORAL TABLET two tabs by mouth today, then one tab by mouth days two and three and four PREDNISONE 20 MG ORAL TAB LET 328544 PREDNISONE Inactive TUSSIONEX PENNKINETIC ER 10-8 MG/5ML [...] bid 04/20 TOPAMAX 100 MG ORAL TABLET 309973 TOPIRAMATE Inactive CYMBALTA 30 MG ORAL CAPSULE DELAYED RELEASE PARTICLES 1 cap by mouth daily for depression CYMBALTA 30 MG ORAL CAPSULE DELAYED RELEASE PARTICLES 929200 DULOXETINE HCL Inactive TYLENOL WITH CODEINE #3 300-30 MG ORAL TABLET 1-2 po q6hr PRN Pa in TYLENOL WITH CODEINE #3 300-30 MG ORAL TABLET ACETAMINOPHEN-CODEINE Inactive ZITHROMAX Z-REYNA 250 MG ORAL TABLET 2 today, then 1 daily for 4 d ays ZITHROMAX Z-REYNA 250 MG ORAL TABLET 411190 AZITHROMYCIN Inactive CEFDINIR 300 MG ORAL CAPSULE by mouth twice a day 2010 CEFDINIR 300 MG ORAL CAPSULE 919440 CEFDINIR Inactive CEFDINIR 300 MG ORAL CAPSULE by mouth twice a day 2010 CEFDINIR 300 MG ORAL CAPSULE 980003 CEFDINIR Inactive CEFDINIR 300 MG ORAL CAPSULE by mouth twice a day 2010 CEFDINIR 300 MG ORAL CAPSULE 195091 CEFDINIR Inactive CEFDINIR 300 MG ORAL CAPSULE by mouth twice a day 2011 CEFDINIR 300 MG ORAL CAPSULE 596043 CEFDINIR Inactive ZITHROMAX 250 MG ORAL TABLET 2 po today, then 1 po q days 2-5 03/07/07 ZITHROMAX 250 MG ORAL TABLET 995249 AZITHROMYCIN Greer ctive CEFDINIR 300 MG ORAL CAPSULE by mouth twice a day 2011 CEFDINIR 300 MG ORAL CAPSULE 20020704 CEFDINIR Inactive PREDNISONE 20 MG ORAL TABLET 2 tabs daily for 3 days, 1 tab daily for 3 days, 1/2 tab daily for 2 days PRED[facility]ISONE 20 MG [facility] 226[facility] PREDNISONE Inactive AVELOX 400 MG ORAL TABLET [...] days 11/07 PREDNISONE 20 MG ORAL TABLET 818273 PREDNISONE Inactive LEVAQUIN 500 MG ORAL TABLET take one po QD LEVAQUIN 500 MG ORAL TABLET 726523 LEVOFLOXACIN Inactive AZITHROMYCIN 250 MG ORAL TABLET 2 po qd x 1 day, then 1 po q d x 4 days AZITHROMYCIN 250 MG ORAL TABLET 787888 AZITHROMY GIVOANNI Inactive MEDROL 4 MG ORAL TABLET THERAPY PACK 6 tabs on day 1, 5 tabs on day 2, 4 tabs on day 3, 3 tabs on day 4, 2 tabs on day 5, 1 tab on day 6 2013 MEDROL 4 MG ORAL TABLET THERAPY PACK 320668 METHYLPREDNISOLONE Greer ctive CHERATUSSIN AC 100-10 MG/5ML ORAL SYRUP 5ml po q6hr PRN Cough 20 13/04/14 CHERATUSSIN AC 100-10 MG/5ML ORAL SYRUP 696143 GUAIFENE SIN-CODEINE Inactive TRIAMCINOLONE ACETONIDE 0.1 % EXTERNAL CREAM apply three roger es daily prn rash TRIAMCINOLONE ACETONIDE 0.1 % EXTERNAL CREAM 101 4314 TRIAMCINOLONE ACETONIDE Inactive AZITHROMYCIN 250 MG ORAL TABLET 2 po qd x 1 day, then 1 po q d x 4 days AZITHROMYCIN 250 MG ORAL TABLET 791083 AZITHROMY GIOVANNI Inactive MEDROL 4 MG ORAL TABLET THERAPY PACK 6 pills x 1 day, then 5 pills x 1 day then 4 pills x 1 day, then 3 pills x 1 day, then 2 pills x 1 day, then 1 pill x 1 day, then stop MEDROL 4 MG ORAL TABLET THERAPY PACK 149537 METHYLPREDNISOLONE Inactive AMOXICILLIN 500 MG ORAL CAPSULE 1 tab by mouth 3 times daily x 10 days AMOXICILLIN 500 MG ORAL CAPSULE 563098 AMOXICILL IN Inactive AMOXICILLIN 500 MG ORAL CAPSULE 1 tab by mouth 3 times daily x 10 days AMOXICILLIN 500 MG ORAL CAPSULE 833373 AMOXICILL IN Inactive ZITHROMAX 250 MG ORAL TABLET 2 po today, then 1 po q days 2-5 20 12/08/14 ZITHROMAX 250 MG ORAL TABLET 384420 AZITHROMYCIN Correll ctive AUGMENTIN 875-125 MG ORAL TABLET 1 po BID x 10 days 20 13/01/20 AUGMENTIN 875-125 MG ORAL TABLET AMOXICILLIN-POT CLAVULANATE Inactive ZITHROMAX Z-REYNA 250 MG ORAL TABLET 2 today, then 1 daily for 4 d ays ZITHROMAX Z-REYNA 250 MG ORAL TABLET 643632 AZITHROMYCIN Inactive ZITHROMAX 250 MG ORAL TABLET 2 po today, then 1 po q days 2-5 20 14/03/21 ZITHROMAX 250 MG ORAL TABLET 202237 AZITHROMYCIN Correll ctive ZITHROMAX Z-REYNA 250 MG ORAL TABLET 2 today, then 1 daily for 4 d ays ZITHROMAX Z-REYNA 250 MG ORAL TABLET 709045 AZITHROMYCIN Inactive CEFDINIR 300 MG ORAL CAPSULE 1 po BID x 10 days 06/21 CEFDINIR 300 MG ORAL CAPSULE 384867 CEFDINIR Inactive ZITHROMAX 250 MG ORAL TABLET 2 po today, then 1 po q days 2-5 20 13/08/10 ZITHROMAX 250 MG ORAL TABLET 871887 AZITHROMYCIN Correll ctive LEVAQUIN 500 MG ORAL TABLET 1 tablet by mouth daily 20 13/09/24 LEVAQUIN 500 MG ORAL TABLET 19971102 LEVOFLOXACIN Inactive SINGULAIR 10 MG ORAL TABLET 1 po qday for allergies 20 14/01/12 SINGULAIR 10 MG ORAL TABLET 20010504 MONTELUKAST SODIUM Inactive AMOXICILLIN 500 MG ORAL CAPSULE 2 po BID x 10 days 201 09/29/08 AMOXICILLIN 500 MG ORAL CAPSULE 855834 AMOXICILLIN Inactive PREDNISONE 20 MG ORAL TABLET 2 tabs daily for 3 days, 1 tab daily for 3 days, 1/2 tab daily for 2 days PREDNISONE 20 MG ORAL T ABLET 205922 PREDNISONE Inactive ZITHROMAX Z-REYNA 250 MG ORAL TABLET 2 today, then 1 daily for 4 d ays ZITHROMAX Z-REYNA 250 MG ORAL TABLET 760575 AZITHROMYCIN Inactive PREDNISONE 20 MG ORAL TABLET 2 tabs daily for 3 days, 1 tab daily for 3 days, 1/2 tab daily for 2 days PREDNISONE 20 MG ORAL T ABLET 865749 PREDNISONE Inactive ZITHROMAX 250 MG ORAL TABLET 2 po today, then 1 po q days 2-5 20 14/09/04 ZITHROMAX 250 MG ORAL TABLET 776353 AZITHROMYCIN Greer ctive AMOXICILLIN 500 MG ORAL CAPSULE 1 cap by mouth three times a day AMOXICILLIN 500 MG ORAL CAPSULE 116346 AMOXICILLIN Inactive TERBINAFINE HCL 250 MG ORAL TABLET 1 qDay for nail fungus 7 TERBINAFINE HCL 250 MG ORAL TABLET 033782 TERBINAFINE HCL Inact nael AUGMENTIN 875-125 MG ORAL TABLET 1 po BID x 10 days 20 16/03/22 AUGMENTIN 875-125 MG ORAL TABLET AMOXICILLIN-POT CLAVULANATE Inactive PREDNISONE 20 MG ORAL TABLET 2 po qd x 5 days PREDNISONE 20 MG ORAL TABLET 009408 PREDNISONE Inactive AZITHROMYCIN 250 MG ORAL TABLET 2 po qd x 1 day, then 1 po q d x 4 days AZITHROMYCIN 250 MG ORAL TABLET 852291 AZITHROMY GIOVANNI Inactive PREDNISONE 50 MG ORAL TABLET Take 50 mg dialy for 6 day s 7 PREDNISONE 50 MG ORAL TABLET 553333 PREDNISONE Inactive AUGMENTIN 875-125 MG ORAL TABLET 1 po BID x 10 days 20 18/04/16 AUGMENTIN 875-125 MG ORAL TABLET AMOXICILLIN-POT CLAVULANATE Inactive DOXYCYCLINE HYCLATE 100 MG ORAL CAPSULE 1 cap by mouth twice latasha ly DOXYCYCLINE HYCLATE 100 MG ORAL CAPSULE 3281313 DOXYCYCL INE HYCLATE Inactive PREDNISONE 20 MG ORAL TABLET Take 2 tabs day 1 and 2 and 1 t ab days 3 and 4 PREDNISONE 20 MG ORAL TABLET 295944 PREDNISONE Inactive AMOXICILLIN 500 MG ORAL CAPSULE 1 cap by mouth twice daily 10/21 AMOXICILLIN 500 MG ORAL CAPSULE 154283 AMOXICILLIN Inactive TRIAMCINOLONE ACETONIDE 0.1 % EXTERNAL OINTMENT Apply to affected areas TID PRN Rash/Itching for up 2 weeks TRIAMCINOLON E ACETONIDE 0.1 % EXTERNAL OINTMENT 2595219 TRIAMCINOLONE ACETONIDE Inactive ACYCLOVIR 800 MG ORAL TABLET 1 po 5 times daily x 7 days ACYCLOVIR 800 MG ORAL TABLET 649210 ACYCLOVIR Inactive Vital Signs Date Name Value [...] - Chem istry sodium, serum 139 mmol/L 620-338 7897/10/12 potassium, serum 3.8 mmol/L 3.5-5.2 chloride, serum [...] negative Encounters Code Encounter Date Provider Facility CPT-28887 Level 3 Est. Patient 14:16:41 CDT David Tin dle [facility] CPT-60026 Level 3 Est. Patient 13:57:55 CDT David Tin dle [facility] CPT-59668 Level 3 Est. Patient 16:08:07 CDT David Tin dle [facility] CPT-82570 Level 3 Est. Patient 16:53:54 CDT J Livan haas MD [facility]-42499 [id number] Vst-Est Level IV 08:41:[address] Carlton Hu MD [facility] CPT-61052 Level 3 Est. Patient 09:46:49 CUSTOMER RELATIONS ADVISOR David riverae [facility] CPT-26527 [id number] Vst-Est Level III 11:12:16 CDT Yanet Bess DO [facility] CPT-30942 Level 3 Est. Patient 11:34:49 CUSTOMER RELATIONS ADVISOR Perez Mora MD [facility] CPT-06491 Level 4 Est. Patient 09:51:32 CUSTOMER RELATIONS ADVISOR Carlton rich MD [facility] CPT-90654 Level 3 Est. Patient 10:26:00 CUSTOMER RELATIONS ADVISOR Elise stephenson [facility] CPT-98483 Level 3 Est. Patient 13:35:41 CUSTOMER RELATIONS ADVISOR Carlton rich MD [facility] CPT-33434 Level 3 Est. Patient 10:03:52 CUSTOMER RELATIONS ADVISOR Carlton rich MD [facility] CPT-35606 Level 3 Est. Patient 12:17:50 CDT Hugo Restrepo MD [facility] CPT-84546 Level 3 Est. Patient 13:42:38 CDT Elise Are ll [facility] CPT-96934 Level 3 Est. Patient 13:23:51 CDT Diya Mariana mango [facility] CPT-35661 Level 3 Est. Patient 14:22:19 CUSTOMER RELATIONS ADVISOR Diya cobian [facility] CPT-17821 Level 3 Est. Patient 10:11:46 CDT Carlton rich MD [facility] CPT-39307 Level 3 Est. Patient 17:29:43 CDT Elise Are ll [facility] CPT-68964 Level 3 Est. Patient 11:58:06 CDT Elise Are [facility] CPT-09974 Level 4 Est. Patient 14:36:51 CDT Carlton rich MD [facility] CPT-98476 Level 3 Est. Patient 18:16:00 CUSTOMER RELATIONS ADVISOR Blaine HERNANDEZ [facility] CPT-40271 Level 3 Est. Patient 09:45:49 CUSTOMER RELATIONS ADVISOR Carlton rich MD [facility] CPT-61455 Level 3 Est. Patient 13:19:20 CDT Carlton rich MD [facility] CPT-84453 Level 3 Est. Patient 13:06:43 CDT Ridge tam DO [facility] CPT-02185 Level 3 Est. Patient 10:03:07 CDT Perez Moar MD [facility] CPT-97061 Level 3 Est. Patient 19:50:35 CUSTOMER RELATIONS ADVISOR Carlton rich MD [facility] CPT-90241 Level 4 Est. Patient 18:05:01 CUSTOMER RELATIONS ADVISOR Carlton rich MD [facility]-73206 Level 3 Est. Patient 10:45:55 CUSTOMER RELATIONS ADVISOR Hugo Restrepo MD [facility]-12349 Level 3 Est. Patient 14:12:49 CDT Griffin HERNANDEZ [facility]-98838 Level 3 Est. Patient 17:37:24 CDT Carlton rich MD [facility]-66422 Level 3 Est. Patient 16:51:54 CDT Cralton rich MD [facility]-39494 Level 3 Est. Patient 12:18:11 CDT Hugo Restrepo MD [facility]-05887 Level 3 Est. Patient 11:30:25 CDT Marcy crisostomo MD PhD [facility]-74612 Level 3 Est. Patient 12:00:47 CUSTOMER RELATIONS ADVISOR Carlton rich MD [facility]-18008 Level 3 Est. Patient 16:31:06 CUSTOMER RELATIONS ADVISOR Carlton rich MD [facility]-60907 Level 3 Est. Patient 16:23:24 CUSTOMER RELATIONS ADVISOR Ridge tam DO [facility]-42037 Level 3 Est. Patient 12:34:12 CDT Carlton rich MD [facility]-48404 Level 2 Est. Patient 15:43:33 CDT Robi armstrong MD [facility]-02147 Level 4 Est. Patient 14:04:44 CDT Carlton rich MD [facility]-35969 Level 3 Est. Patient 05:47:59 CDT Ridge tam [facility]-47827 Level 3 Est. Patient 13:12:53 CUSTOMER RELATIONS ADVISOR Carlton rich MD [facility] CPT-85107 Level 3 Est. Patient 14:26:53 CDT Hugo [...] CPT-J1100 Decadron 6mg (Dexamethasone) 14:32:13 CDT 2 CPT-40660 Hip bilat min 2V w AP pelvis 13:16:20 CDT 2 CPT-30725 Pelvis only 13:07:33 CDT CPT-52528 Spec Collection and Handling Fee 11:25:12 C DT CPT-17813 Fluzone Quadrivalent Intramuscular Suspe nsion 0.5 ML 14:31:55 CDT CPT-08582 Abx/Therapy Injection 13:28:47 CUSTOMER RELATIONS ADVISOR CPT-J2930 Solu Medrol 125 mg (Methyl Prednisolone Sodium Succinate) 12:00:47 CUSTOMER RELATIONS ADVISOR CPT-31219 Venipuncture Draw Fee 11:33:31 CDT CPT-87807 EKG Trac and Interp 11:21:09 CDT CPT-20892 Chest 2V Frontal and Lat 11:21:09 CDT 12/15 CPT-82111 Venipuncture Draw Fee 08:02:34 CDT CPT-01198 Chest 2V Frontal and Lat 05:47:59 CDT 06/05
--- OUTSIDE RECORDS SUMMARY | 2019-10-08 10:03 | XMS REPORT | Clinical Summary ---
Author Author Caitlin, Juliana Martinez Organization [employer] (formerly [email or web address]) [facility] Address Unknown [...] a health care facility HEADACHE 784.0 Active Cralton Hu MD Headache DEPRESSION 311 Refinement Carlton [...] URI 465.9 Inactive Ridge Bess DO Ac [place] upper respiratory infections of unspecified site Body Mass Index 35.0-35.9 Adult Refinement 2017 Ridge Bess DO Body Mass Index 35.0-35.9, adult BMI 34-34.9 Refinement Cherelle Torres RN Body Mass Index 35.0-35.9, adult BMI 35-35.9 Refinement David Marianneamisha RICEN Body Mass Index 35.0-35.9, adult BMI 34-34.9 Refinement May Vivar MD Body Mass Index 35.0-35.9, adult BMI 35-35.9 Refinement David Marianne GOSPEL SINGER Body Mass Index 35.0-35.9, adult BMI 33-33.9 Active David Marianne GOSPEL SINGER Body Mass Index 35.0-35.9, adult Upper respiratory [...] nonspecific skin eruption 782.1 Active David Marianne GOSPEL SINGER Rash and other nonspecific skin eruption Pharyngitis, acute / sore throat 462 Active 201 12/06/23 David Marianne GOSPEL SINGER Acute pharyngitis Shingles 053.9 Active David Marianne GOSPEL SINGER Herpes zoster without mention of complication BRONCHITIS [...] Hugo gore MD Rhinitis, acute ICD-460 Inactive Huog Ochoa MD Sinusitis ICD-473.9 Inactive Hugo Restrepo MD Bronchitis ICD-490 Inactive Hugo Restrepo MD 201 10/02/29 URI ICD-465.9 Inactive Ridge Bess DO Medication List Medication Instructions Start Date Stop Date Generic Name NDC Status Provider Patient Instruction TYLENOL WITH CODEINE #3 300-30 MG ORAL TABLET ACETAMINOPHEN-CODEINE 65808468968 Active David Marianne GOSPEL SINGER A ctive TRIAMCINOLONE ACETONIDE 0.1 % EXTERNAL CREAM apply bid spari ngly to rash TRIAMCINOLONE ACETONIDE 68545584620 Active David Marianne GOSPEL SINGER Active TYLENOL WITH CODEINE #3 300-30 MG ORAL TABLET 1-2 po q6hr PRN Pa in ACETAMINOPHEN-CODEINE 26627797194 No Longer Active David Marianne AP RN Active ACYCLOVIR 800 MG ORAL TABLET 1 po 5 times daily x 7 days ACYCLOVIR 32342781570 No Longer Active David Marianne GOSPEL SINGER Active TOPAMAX 100 MG ORAL TABLET 1 by mouth twice daily TOPIRAMATE 27180877362 Active Columba Raida Active TRIAMCINOLONE ACETONIDE 0.1 % EXTERNAL OINTMENT Apply to affected areas TID PRN Rash/Itching for up 2 weeks TRIAMCINOLONE ACETON KAYLA 55047754830 No Longer Active David Marianne GOSPEL SINGER Active AMOXICILLIN 500 MG ORAL CAPSULE 1 cap by mouth twice daily 10/21 AMOXICILLIN 14794147186 No Longer Active David Marianne GOSPEL SINGER Active ELMIRON 100 MG ORAL CAPSULE 2 capsules in the morning and 1 capsule at night PENTOSAN POLYSULFATE SODIUM 19657339844 Active Cinthia H art TERRAPIN FISHER Active CYMBALTA 30 MG ORAL CAPSULE DELAYED RELEASE PARTICLES 1 cap by mouth daily for depression DULOXETINE HCL 64217398156 No Longer Active Carlton Hu MD Active CYMBALTA 60 MG ORAL CAPSULE DELAYED RELEASE PARTICLES 1 cap by mouth daily for mood and pain DULOXETINE HCL 39293814479 Active Carlton Hu MD Active TUSSIONEX PENNKINETIC ER 10-8 MG/5ML ORAL SUSPENSION E XTENDED RELEASE 5ml po q12hr PRN Cough HYDROCOD POLST-CHLORPHEN POLST 20674924020 Active David Marianne GOSPEL SINGER Active PREDNISONE 20 MG ORAL TABLET Take 2 tabs day 1 and 2 and 1 t ab days 3 and 4 PREDNISONE 48288383842 No Longer Active David Marianne GOSPEL SINGER Active DOXYCYCLINE HYCLATE 100 MG ORAL CAPSULE 1 cap by mouth twice latasha ly DOXYCYCLINE HYCLATE 65465401753 No Longer Active David Marianne GOSPEL SINGER Active TOPAMAX 100 MG ORAL TABLET Take 1 tablet po bid TOPIRAMATE 80090343773 No Longer Active David Marianne GOSPEL SINGER Active TUSSIONEX PENNKINETIC ER 10-8 MG/5ML ORAL SUSPENSION E XTENDED RELEASE 5ml po q12hr PRN Cough HYDROCOD POLST-CHLORPHEN POLST 5 9434727337 No Longer Active David Marianne GOSPEL SINGER Active AUGMENTIN 875-125 MG ORAL TABLET 1 po BID x 10 days 18/04/16 AMOXICILLIN-POT CLAVULANATE 76473521155 No Longer Active David Marianne GOSPEL SINGER Active PREDNISONE 50 MG ORAL TABLET Take 50 mg dialy for 6 day s 7 PREDNISONE 27406857026 No Longer Active David Marianne GOSPEL SINGER Active TUSSIONEX PENNKINETIC ER 10-8 MG/5ML ORAL SUSPENSION E XTENDED RELEASE 5ml po q12hr PRN Cough HYDROCOD POLST-CHLORPHEN POLST 5 8208661588 No Longer Active Cherelle Torres RN Active PREDNISONE 20 MG ORAL TABLET two tabs by mouth today, then one tab by mouth days two and three and four PREDNISONE 05160396352 No Lo nger Active Cherelle Torres RN Active AZITHROMYCIN 250 MG ORAL TABLET 2 po qd x 1 day, then 1 po q d x 4 days AZITHROMYCIN 97079905268 No Longer Active Ridge Bess DO Active PREDNISONE 20 MG ORAL TABLET 2 po qd x 5 days P REDNISONE 21282072106 No Longer Active Perez Mora MD Active PROAIR HFA 108 (90 BASE) MCG/ACT INHALATION AEROSOL SO LUTION 2 puffs four times a day as needed ALBUTEROL SULFATE 22709437094 No Long er Active Becky FUENTES Active ASPIRIN 81 MG ORAL TABLET 1 po qd ASPIRIN 24845252004 Active Carlton Hu MD Active PREDNISONE 20 MG ORAL TABLET 1 tab twice daily for 3 d ay, then one daily for three days PREDNISONE 64569889465 No Longer Active Carlton Hu MD Active AUGMENTIN 875-125 MG ORAL TABLET 1 po BID x 10 days 16/03/22 AMOXICILLIN-POT CLAVULANATE 39578163920 No Longer Active Eilse Garcia APRN Active TERBINAFINE HCL 250 MG ORAL TABLET 1 qDay for nail fungus 7 TERBINAFINE HCL 86195360202 No Longer Active Carlton Hu MD A ctive AMOXICILLIN 500 MG ORAL CAPSULE 1 cap by mouth three times a day AMOXICILLIN 59167717410 No Longer Active Carlton Hu MD Active ELMIRON 100 MG ORAL CAPSULE 2 tablets in the am and 1 tablet at hs PENTOSAN POLYSULFATE SODIUM 16970747834 No Longer Active Robert Hu MD Active MUCINEX D 60-600 MG ORAL TABLET EXTENDED RELEASE 12 HOUR 1 t ab po q am PSEUDOEPHEDRINE-GUAIFENESIN 53963801232 No Longer Act nael Carlton Hu MD Active MUCINEX DM MAXIMUM STRENGTH 60-1200 MG ORAL TABLET EXT ENDED RELEASE 12 HOUR 1 tab po q am DEXTROMETHORPHAN-GUAIFENESIN 28132549937 No Longer Active Carlton Hu MD Active TUSSIONEX PENNKINETIC ER 10-8 MG/5ML ORAL SUSPENSION E XTENDED RELEASE 5ml po q12hr PRN Cough HYDROCOD POLST-CHLORPHEN POLST 5 3701426128 No Longer Active Carlton Hu MD Active POTASSIUM CHLORIDE ER 20 MEQ ORAL TABLET EXTENDED RELE ASE Take 1 by mouth 4 times daily for 7 days POTASSIUM CHLORIDE 07418539587 No Longer Active Carlton Hu MD Active ZITHROMAX 250 MG ORAL TABLET 2 po today, then 1 po q days 2-5 20 14/09/04 AZITHROMYCIN 42200672642 No Longer Active Elise Garcia APRN Active TUSSIONEX PENNKINETIC ER 10-8 MG/5ML ORAL SUSPENSION E XTENDED RELEASE 5 ml twice a day as needed for cough HYDROCOD POLST-CHLORPH EN POLST 78788377547 No Longer Active Elise Garcia APRN Active MONTELUKAST SODIUM 10 MG ORAL TABLET 1 po daily for Allergy MONTELUKAST SODIUM 56830043468 Active Carlton Hu MD Ac tive TUSSIONEX PENNKINETIC ER 10-8 MG/5ML ORAL SUSPENSION E XTENDED RELEASE 5ml po q12hr PRN Cough HYDROCOD POLST-CHLORPHEN POLST 5 8896713415 No Longer Active Hugo Restrepo MD Active GABAPENTIN 100 MG ORAL CAPSULE 1 po BID for fibromyalgia GABAPENTIN 76809741799 Active ALFREDO Holly Active LYRICA 100 MG ORAL CAPSULE Take 1 tab po BID for fibromyalgia 20 11/08/21 PREGABALIN 26182817245 No Longer Active Elise Garcia APRN A ctive PREDNISONE 20 MG ORAL TABLET 2 tabs daily for 3 days, 1 tab daily for 3 days, 1/2 tab daily for 2 days PREDNISONE 06133064209 No Longer Active Diya De Guzman APRN Active TUSSIONEX PENNKINETIC ER 10-8 MG/5ML ORAL SUSPENSION E XTENDED RELEASE 5 mL PO q 12 hrs PRN cough HYDROCOD POLST-CHLORPHEN POLST 117437 98569 No Longer Active Diya De Guzman GOSPEL SINGER Active FLUTICASONE PROPIONATE 50 MCG/ACT NASAL SUSPENSION 2 s prays each nostril daily until bottle is empty FLUTICASONE PROPIONATE 299571346 99 No Longer Active Jillina Cesarl GOSPEL SINGER Active ASMANEX 60 METERED DOSES 220 MCG/INH INHALATION AEROSO L POWDER BREATH ACTIVATED 1 puff bid with rinse after MOMETASONE FUROATE 3961110 4102 No Longer Active Venullina Gege GOSPEL SINGER Active ZITHROMAX Z-REYNA 250 MG ORAL TABLET 2 today, then 1 daily for 4 d ays AZITHROMYCIN 95827880270 No Longer Active Elise Garcia APRN Active TUSSIONEX PENNKINETIC ER 10-8 MG/5ML ORAL SUSPENSION E XTENDED RELEASE 5ml po q12hr PRN Cough HYDROCOD POLST-CHLORPHEN POLST 5 9297433907 No Longer Active Elise Garcia APRN Active PREDNISONE 20 MG ORAL TABLET 2 tabs daily for 3 days, 1 tab daily for 3 days, 1/2 tab daily for 2 days PREDNISONE 77617803029 No Longer Active Diya De Guzman APRN Active AMOXICILLIN 500 MG ORAL CAPSULE 2 po BID x 10 days 201 09/29/08 AMOXICILLIN 74650692043 No Longer Active Diya De Guzman APRN Act nael SINGULAIR 10 MG ORAL TABLET 1 po qday for allergies 20 14/01/12 MONTELUKAST SODIUM 22081871793 No Longer Active Carlton Hu MD Active LEVAQUIN 500 MG ORAL TABLET 1 tablet by mouth daily 20 13/09/24 LEVOFLOXACIN 91860183574 No Longer Active Carlton Hu MD Acti ve FLUTICASONE PROPIONATE 50 MCG/ACT NASAL SUSPENSION 2 s prays each nostril daily for 2 weeks, then 1 spray each nostril daily. FLUTICASONE PROPIONATE 12174570197 Active Carlton Hu MD Active ZITHROMAX 250 MG ORAL TABLET 2 po today, then 1 po q days 2-5 20 13/08/10 AZITHROMYCIN 69465010588 No Longer Active Elise Arell GOSPEL SINGER Active XANAX 0.5 MG ORAL TABLET one tablet by mouth daily prn anxiety 2015 ALPRAZOLAM 32323743752 Active ALFREDO Holly Active CEFDINIR 300 MG ORAL CAPSULE 1 po BID x 10 days CEFDINIR 55039692446 No Longer Active Carlton Hu MD Active ZOCOR 40 MG ORAL TABLET 1 tab by mouth daily SI MVASTATIN 49899666945 No Longer Active Carlton Hu MD Active CYCLOBENZAPRINE HCL 10 MG ORAL TABLET 1 tablet by mouth BID prn had pain CYCLOBENZAPRINE HCL 76431321465 No Longer Active Jayden Hu MD Active LEVOFLOXACIN 500 MG ORAL TABLET 1 tab PO daily x 10 days LEVOFLOXACIN 42764289208 No Longer Active Carlton Hu MD Acti ve PREDNISONE 20 MG ORAL TABLET 3 tab PO qd x 2d, 2 tab P O qd x 2d, 1 tab PO qd x 2d, 1/2 tab PO qd x 2d PREDNISONE 48681791773 No Lo nger Active Carlton Hu MD Active FLUTICASONE PROPIONATE 50 MCG/ACT NASAL SUSPENSION 1 t o 2 sprays each nostril daily FLUTICASONE PROPIONATE 61548153875 No Longer Ac tive Blaine HERNANDEZ Active CHERATUSSIN AC 100-10 MG/5ML ORAL SYRUP 1 tsp by mouth every 4 hours as needed for cough GUAIFENESIN-CODEINE 01431333179 No Longe r Active Blaine HERNANDEZ Active PROMETHAZINE-CODEINE 6.25-10 MG/5ML ORAL SYRUP 1 tsp b y mouth every 6 hours if needed for cough PROMETHAZINE-CODEINE 00727458959 No Longer Active Blaine HERNANDEZ Active CHERATUSSIN AC 100-10 MG/5ML ORAL SYRUP 1 tsp by mouth every 4 hours as needed for cough GUAIFENESIN-CODEINE 89858469131 No Longe r Active Blaine HERNANDEZ Active ZITHROMAX Z-REYNA 250 MG ORAL TABLET 2 today, then 1 daily for 4 d ays AZITHROMYCIN 09361980639 No Longer Active Columba Raida Act nael ZITHROMAX 250 MG ORAL TABLET 2 po today, then 1 po q days 2-5 20 14/03/21 AZITHROMYCIN 14821030665 No Longer Active Carlton Hu MD Active ZITHROMAX Z-REYNA 250 MG ORAL TABLET 2 today, then 1 daily for 4 d ays AZITHROMYCIN 70039390183 No Longer Active Columba Raida Act nael AUGMENTIN 875-125 MG ORAL TABLET 1 po BID x 10 days 13/01/20 AMOXICILLIN-POT CLAVULANATE 34768443931 No Longer Active Diya De Guzman APRN Active ZITHROMAX 250 MG ORAL TABLET 2 po today, then 1 po q days 2-5 20 12/08/14 AZITHROMYCIN 40139735024 No Longer Active Carlton Hu MD Active TRAMADOL HCL 50 MG ORAL TABLET 1 po tid with ES Tylenol TRAMADOL HCL 95700025585 Active ALFREDO Holly Active PREMARIN 0.625 MG ORAL TABLET TAKE 1 TAB BY MOUTH DAILY ESTROGENS CONJUGATED 53648350141 No Longer Active Ridge Bess DO A ctive CYMBALTA 30 MG ORAL CAPSULE DELAYED RELEASE PARTICLES 1 cap by mouth daily DULOXETINE HCL 64857246964 No Longer Active Ridge Ya ee DO Active AMOXICILLIN 500 MG ORAL CAPSULE 1 tab by mouth 3 times daily x 10 days AMOXICILLIN 76517256180 No Longer Active Carlton bustamante MD Active AMOXICILLIN 500 MG ORAL CAPSULE 1 tab by mouth 3 times daily x 10 days AMOXICILLIN 92514682832 No Longer Active Carlton bustamante MD Active PROMETHAZINE-CODEINE 6.25-10 MG/5ML ORAL SYRUP 1 tsp b y mouth every 8 hours prn cough PROMETHAZINE-CODEINE 23931129453 No Longer Acti ve Carlton Hu MD Active MEDROL 4 MG ORAL TABLET THERAPY PACK 6 pills x 1 day, then 5 pills x 1 day then 4 pills x 1 day, then 3 pills x 1 day, then 2 pills x 1 day, then 1 pill x 1 day, then stop METHYLPREDNISOLONE 02713056582 No Long er Active Perez Mora MD Active AZITHROMYCIN 250 MG ORAL TABLET 2 po qd x 1 day, then 1 po q d x 4 days AZITHROMYCIN 05211497135 No Longer Active Perez Ambriz MD Active SYMBICORT 160-4.5 MCG/ACT INHALATION AEROSOL 2 puffs bid wit h rinse after BUDESONIDE-FORMOTEROL FUMARATE 60842201333 N o Longer Active Perez Mora MD Active LYRICA 75 MG ORAL CAPSULE TAKE 1 CAPSULE BY MOUTH TWICE DAILY PREGABALIN 76036505095 No Longer Active Carlton Hu MD Acti ve TOPAMAX 25 MG ORAL TABLET 1 qHS x 1 week, then 1 BID x 1 week, then 1 qAM and 2 qHS x 1 week, then 2 BID (migraine prevention) T OPIRAMATE 03121604403 No Longer Active Jerica FUENTES Active TOPAMAX 50 MG ORAL TABLET take 1 tab po BID for migraines. 07/02 TOPIRAMATE 24927562583 No Longer Active Jerica FUENTES Active TRIAMCINOLONE ACETONIDE 0.1 % EXTERNAL CREAM apply three roger es daily prn rash TRIAMCINOLONE ACETONIDE 40459872887 No Longer Active Carlton Hu MD Active PAXIL 40 MG ORAL TABLET take 1 tab po qday for depression 0 PAROXETINE HCL 85639863079 Active Carlton Hu MD Active CHERATUSSIN AC 100-10 MG/5ML ORAL SYRUP 5ml po q6hr PRN Cough 20 13/04/14 GUAIFENESIN-CODEINE 06961290605 No Longer Active Carlton Hu MD Active MEDROL 4 MG ORAL TABLET THERAPY PACK 6 tabs on day 1, 5 tabs on day 2, 4 tabs on day 3, 3 tabs on day 4, 2 tabs on day 5, 1 tab on day 6 2013 METHYLPREDNISOLONE 74113006052 No Longer Active Perez Mora MD Active AZITHROMYCIN 250 MG ORAL TABLET 2 po qd x 1 day, then 1 po q d x 4 days AZITHROMYCIN 17171900482 No Longer Active Perez Ambriz MD Active PROPRANOLOL HCL 60 MG ORAL TABLET 1 PO Q D PROPRANOLOL HCL 94178975467 No Longer Active Perez Mora MD Activ e CHERATUSSIN AC 100-10 MG/5ML ORAL SYRUP take one tsp po Q 6h ours prn cough GUAIFENESIN-CODEINE 36319581140 No Longer Active Zia Mora MD Active AUGMENTIN 875-125 MG ORAL TABLET 1 tab by mouth twice daily with food AMOXICILLIN-POT CLAVULANATE 96496353276 No Longer Act nael Perez Mora MD Active CHERATUSSIN AC 100-10 MG/5ML ORAL SYRUP 1 tsp by mouth every 4 hours as needed for cough GUAIFENESIN-CODEINE 01732864142 No Longe r Active Hugo Restrepo MD Active ACETAMINOPHEN-CODEINE #3 300-30 MG ORAL TABLET 1 PO Q 4-6 HRS WA N PAIN ACETAMINOPHEN-CODEINE 67464915583 No Longer Active Hugo Restrepo MD Active LEVAQUIN 500 MG ORAL TABLET take one po QD LEVO FLOXACIN 38269034773 No Longer Active Griffin HERNANDEZ Active PREDNISONE 20 MG ORAL TABLET Take 3 tabs daily for 3 d ays, 2 tabs daily for 3 days, 1 tab daily for 3 days, 1/2 tab daily for 3 days 11/07 PREDNISONE 20958281428 No Longer Active Carlton Hu MD Acti ve AVELOX 400 MG ORAL TABLET 1 tab by mouth daily MOXIFLOXACIN HCL 28984013079 No Longer Active Carlton Hu MD Active CHERATUSSIN AC 100-10 MG/5ML ORAL SYRUP 1 tsp by mouth every 4 hours as needed for cough GUAIFENESIN-CODEINE 08389225577 No Longe r Active Hugo Restrepo MD Active AVELOX 400 MG ORAL TABLET 1 tab by mouth daily MOXIFLOXACIN HCL 62884964061 No Longer Active Marcy De La Rosa MD PhD Active TERBINAFINE HCL 250 MG ORAL TABLET 1 qDay T ERBINAFINE HCL 68237453340 No Longer Active Marcy De La Rosa MD PhD Active CHERATUSSIN AC 100-10 MG/5ML ORAL SYRUP 1 tsp by mouth every 4 hours as needed for cough GUAIFENESIN-CODEINE 21132423756 No Longe r Active Marcy De La Rosa MD PhD Active AVELOX 400 MG ORAL TABLET 1 tab by mouth daily MOXIFLOXACIN HCL 80787344007 No Longer Active Marcy De La Rosa MD PhD Active HYDROCODONE-ACETAMINOPHEN 5-325 MG ORAL TABLET 1 po q 6hr PRN co ugh HYDROCODONE-ACETAMINOPHEN 42996979046 No Longer Active Marcy De La Rosa MD PhD Active PREDNISONE 20 MG ORAL TABLET 2 tabs daily for 3 days, 1 tab daily for 3 days, 1/2 tab daily for 2 days PREDNISONE 23666775517 No Longer Active Carlton Hu MD Active CEFDINIR 300 MG ORAL CAPSULE by mouth twice a day 2011 CEFDINIR 90896218932 No Longer Active Carlton Hu MD Acti ve HYDROCHLOROTHIAZIDE 25 MG ORAL TABLET 1 TAB PO DAILY HYDROCHLOROTHIAZIDE 44921796091 Active Carlton Hu MD A ctive ACETAMINOPHEN-CODEINE #3 300-30 MG ORAL TABLET 1 tablet po q 4-6 hrs prn pain ACETAMINOPHEN-CODEINE 80293779010 No Longer Active Ridge Bess DO Active ZITHROMAX 250 MG ORAL TABLET 2 po today, then 1 po q days 2-5 20 03/07/07 AZITHROMYCIN 53253717064 No Longer Active Carlton Hu MD Active CHERATUSSIN AC 100-10 MG/5ML ORAL SYRUP take 1 tsp po q4-6 h ours prn cough GUAIFENESIN-CODEINE 71111932758 No Longer Active Jayden Hu MD Active ACETAMINOPHEN-CODEINE #3 300-30 MG ORAL TABLET 1 PO Q 4-6 HR PRN PAIN ACETAMINOPHEN-CODEINE 71219875884 No Longer Active Da raimundo Hu MD Active LORTAB 7.5-500 MG/15ML ORAL ELIXIR 7.5 ml po q 4 hour prn cough HYDROCODONE-ACETAMINOPHEN 39494109052 No Longer Active Carlton Hu MD Active PREDNISONE 20 MG ORAL TABLET 1 po bid 3 days, then 1 po q day 3 days PREDNISONE 30241227426 No Longer Active Carlton Hu MD Active CEFDINIR 300 MG ORAL CAPSULE by mouth twice a day 2011 CEFDINIR 66873154486 No Longer Active Carlton Hu MD Acti ve CEFDINIR 300 MG ORAL CAPSULE by mouth twice a day 2010 CEFDINIR 90290549051 No Longer Active Carlton Hu MD Acti ve CEFDINIR 300 MG ORAL CAPSULE by mouth twice a day 2010 CEFDINIR 71577556222 No Longer Active Carlton Hu MD Acti ve TESSALON PERLES 100 MG ORAL CAPSULE 1 tablet by mouth 3 times daily as needed for cough BENZONATATE 50837045360 No Longer Active Carlton Hu MD Active CEFDINIR 300 MG ORAL CAPSULE by mouth twice a day 2010 CEFDINIR 63744356841 No Longer Active Carlton Hu MD Acti ve ZITHROMAX Z-REYNA 250 MG ORAL TABLET 2 today, then 1 daily for 4 d ays AZITHROMYCIN 26706348220 No Longer Active Hugo Restrepo MD Active TESSALON PERLES 100 MG ORAL CAPSULE 1 tablet by mouth 3 times daily as needed for cough TESSALON PERLES 100 MG ORAL CAPSULE 92338 7 BENZONATATE Inactive PREDNISONE 20 MG ORAL TABLET 1 po bid 3 days, then 1 po q day 3 days PREDNISONE 20 MG ORAL TABLET 234876 PREDNISONE Greer ctive LORTAB 7.5-500 MG/15ML ORAL [...] cough CHERATUSSIN AC 100-10 MG/5ML ORAL SYRUP 919693 GUAIFENESIN-CODEINE Inactive ACETAMINOPHEN-CODEINE #3 300-30 MG ORAL TABLET 1 tablet po q 4-6 hrs prn pain ACETAMINOPHEN-CODEINE #3 300-30 MG ORAL TABLET ACETAMINOPHEN-CODEINE Inactive HYDROCODONE-ACETAMINOPHEN 5-325 MG ORAL TABLET 1 po q 6hr PRN co ugh HYDROCODONE-ACETAMINOPHEN 5-325 MG ORAL TABLET 988828 HYDROCODONE-ACETAMINOPHEN Inactive AVELOX 400 MG ORAL TABLET 1 tab by mouth daily AVELOX 400 MG ORAL TABLET MOXIFLOXACIN HCL Inactive CHERATUSSIN AC 100-10 MG/5ML ORAL SYRUP 1 tsp by mouth every 4 hours as needed for cough CHERATUSSIN AC 100-10 MG/5ML ORAL SYRUP 9 66192 GUAIFENESIN-CODEINE Inactive TERBINAFINE HCL 250 MG ORAL TABLET 1 qDay 07/08 TERBINAFINE HCL 250 MG ORAL TABLET 710416 TERBINAFINE HCL Inactive CHERATUSSIN AC 100-10 MG/5ML ORAL SYRUP 1 tsp by mouth every 4 hours as needed for cough CHERATUSSIN AC 100-10 MG/5ML ORAL SYRUP 9 95141 GUAIFENESIN-CODEINE Inactive ACETAMINOPHEN-CODEINE #3 300-30 MG ORAL TABLET 1 PO Q 4-6 HRS WA N PAIN ACETAMINOPHEN-CODEINE #3 300-30 MG ORAL TABLET ACETAMINOPHEN-CODEINE Inactive CHERATUSSIN AC 100-10 MG/5ML ORAL SYRUP 1 tsp by mouth every 4 hours as needed for cough CHERATUSSIN AC 100-10 MG/5ML ORAL SYRUP 9 56466 GUAIFENESIN-CODEINE Inactive AUGMENTIN 875-125 MG ORAL TABLET 1 tab by mouth twice daily with food AUGMENTIN 875-125 MG ORAL TABLET AMOXICIL MADELINE-POT CLAVULANATE Inactive CHERATUSSIN AC 100-10 MG/5ML ORAL SYRUP take one tsp po Q 6h ours prn cough CHERATUSSIN AC 100-10 MG/5ML ORAL SYRUP 625615 GUAIFENESIN-CODEINE Inactive PROPRANOLOL HCL 60 MG ORAL TABLET 1 PO Q D PROPRANOLOL HCL 60 MG ORAL TABLET 211509 PROPRANOLOL HCL Inactive TOPAMAX 50 MG ORAL TABLET take 1 tab po BID for migraines. 07/02 TOPAMAX 50 MG ORAL TABLET 877339 TOPIRAMATE Inacti ve TOPAMAX 25 MG ORAL TABLET 1 qHS x 1 week, then 1 BID x 1 week, then 1 qAM and 2 qHS x 1 week, then 2 BID (migraine prevention) TOPAMAX 25 MG ORAL TABLET 356831 TOPIRAMATE Inactive LYRICA 75 MG ORAL CAPSULE TAKE 1 CAPSULE BY MOUTH TWICE DAILY LYRICA 75 MG ORAL CAPSULE 972804 PREGABALIN Inactive SYMBICORT 160-4.5 MCG/ACT INHALATION AEROSOL 2 puffs bid wit h rinse after SYMBICORT 160-4.5 MCG/ACT INHALATION AEROSOL BUDESONIDE- FORMOTEROL FUMARATE Inactive PROMETHAZINE-CODEINE 6.25-10 MG/5ML ORAL SYRUP 1 tsp b y mouth every 8 hours prn cough PROMETHAZINE-CODEINE 6.25-10 MG/ 5ML ORAL SYRUP 355595 PROMETHAZINE-CODEINE Inactive CYMBALTA 30 MG ORAL CAPSULE DELAYED RELEASE PARTICLES 1 cap by mouth daily CYMBALTA 30 MG ORAL CAPSULE DELAYED RELE ASE PARTICLES 984783 DULOXETINE HCL Inactive PREMARIN 0.625 MG ORAL TABLET TAKE 1 TAB BY MOUTH DAILY PREMARIN 0.625 MG ORAL TABLET ESTROGENS CONJUGATED Inactive CHERATUSSIN AC 100-10 MG/5ML ORAL SYRUP 1 tsp by mouth every 4 hours as needed for cough CHERATUSSIN AC 100-10 MG/5ML ORAL SYRUP 9 88125 GUAIFENESIN-CODEINE Inactive PROMETHAZINE-CODEINE 6.25-10 MG/5ML ORAL SYRUP 1 tsp b y mouth every 6 hours if needed for cough PROMETHAZINE-CODEINE 6.25-10 MG/5ML ORAL SYRUP 659453 PROMETHAZINE-CODEINE Inactive CHERATUSSIN AC 100-10 MG/5ML ORAL SYRUP 1 tsp by mouth every 4 hours as needed for cough CHERATUSSIN AC 100-10 MG/5ML ORAL SYRUP 9 88588 GUAIFENESIN-CODEINE Inactive FLUTICASONE PROPIONATE 50 MCG/ACT NASAL SUSPENSION 1 t o 2 sprays each nostril daily FLUTICASONE PROPIONATE 50 MCG/AC T NASAL SUSPENSION 1552921 FLUTICASONE PROPIONATE Inactive PREDNISONE 20 MG ORAL TABLET 3 tab PO qd x 2d, 2 tab P O qd x 2d, 1 tab PO qd x 2d, 1/2 tab PO qd x 2d PREDNISONE 20 MG ORAL TAB LET 424545 PREDNISONE Inactive LEVOFLOXACIN 500 MG ORAL TABLET 1 tab PO daily x 10 days LEVOFLOXACIN 500 MG ORAL TABLET 200740 LEVOFLOXACIN Inactive CYCLOBENZAPRINE HCL 10 MG ORAL TABLET 1 tablet by mouth BID prn had pain CYCLOBENZAPRINE HCL 10 MG ORAL TABLET 713634 CYCLOBENZAPRINE HCL Inactive ZOCOR 40 MG ORAL TABLET 1 tab by mouth daily 4 ZOCOR 40 MG ORAL TABLET 461049 SIMVASTATIN Inactive TUSSIONEX PENNKINETIC ER 10-8 MG/5ML [...] FLUTICASONE PROPIO EFE 50 MCG/ACT NASAL SUSPENSION 1800622 FLUTICASONE PROPIONATE Inactive TUSSIONEX PENNKINETIC ER 10-8 MG/5ML ORAL SUSPENSION E XTENDED RELEASE 5 mL PO q 12 hrs PRN cough TUSSIONEX PENNKINETI C ER 10-8 MG/5ML ORAL SUSPENSION EXTENDED RELEASE HYDROCOD POLST-CHLORPHEN POLST I nactive LYRICA 100 MG ORAL CAPSULE Take 1 tab po BID for fibromyalgia 20 11/08/21 LYRICA 100 MG ORAL CAPSULE 219934 PREGABALIN Inact nael TUSSIONEX PENNKINETIC ER 10-8 [...] three days PREDNISONE 20 MG ORAL TABLET 173218 PREDNIS ONE Inactive PROAIR HFA 108 (90 BASE) MCG/ACT INHALATION AEROSOL SO LUTION 2 puffs four times a day as needed PROAIR HFA 108 (90 B ASE) MCG/ACT INHALATION AEROSOL SOLUTION ALBUTEROL SULFATE Inactive PREDNISONE 20 MG ORAL TABLET two tabs by mouth today, then one tab by mouth days two and three and four PREDNISONE 20 MG ORAL TAB LET 109709 PREDNISONE Inactive TUSSIONEX PENNKINETIC ER 10-8 MG/5ML [...] bid 04/20 TOPAMAX 100 MG ORAL TABLET 321918 TOPIRAMATE Inactive CYMBALTA 30 MG ORAL CAPSULE DELAYED RELEASE PARTICLES 1 cap by mouth daily for depression CYMBALTA 30 MG ORAL CAPSULE DELAYED RELEASE PARTICLES 120646 DULOXETINE HCL Inactive TYLENOL WITH CODEINE #3 300-30 MG ORAL TABLET 1-2 po q6hr PRN Pa in TYLENOL WITH CODEINE #3 300-30 MG ORAL TABLET ACETAMINOPHEN-CODEINE Inactive ZITHROMAX Z-REYNA 250 MG ORAL TABLET 2 today, then 1 daily for 4 d ays ZITHROMAX Z-REYNA 250 MG ORAL TABLET 249923 AZITHROMYCIN Inactive CEFDINIR 300 MG ORAL CAPSULE by mouth twice a day 2010 CEFDINIR 300 MG ORAL CAPSULE 835820 CEFDINIR Inactive CEFDINIR 300 MG ORAL CAPSULE by mouth twice a day 2010 CEFDINIR 300 MG ORAL CAPSULE 110824 CEFDINIR Inactive CEFDINIR 300 MG ORAL CAPSULE by mouth twice a day 2010 CEFDINIR 300 MG ORAL CAPSULE 451562 CEFDINIR Inactive CEFDINIR 300 MG ORAL CAPSULE by mouth twice a day 2011 CEFDINIR 300 MG ORAL CAPSULE 024091 CEFDINIR Inactive ZITHROMAX 250 MG ORAL TABLET 2 po today, then 1 po q days 2-5 03/07/07 ZITHROMAX 250 MG ORAL TABLET 479619 AZITHROMYCIN [facility] CEFDINIR 300 MG ORAL CAPSULE by mouth twice a day 2011 CEFDINIR 300 MG ORAL CAPSULE 20020704 CEFDINIR Inactive PREDNISONE 20 MG ORAL TABLET 2 tabs daily for 3 days, 1 tab daily for 3 days, 1/2 tab daily for 2 days PRED[facility]ISONE [facility] 035[facility] PREDNISONE Inactive AVELOX 400 MG ORAL TABLET [...] days 11/07 PREDNISONE 20 MG ORAL TABLET 063602 PREDNISONE Inactive LEVAQUIN 500 MG ORAL TABLET take one po QD LEVAQUIN 500 MG ORAL TABLET 252349 LEVOFLOXACIN Inactive AZITHROMYCIN 250 MG ORAL TABLET 2 po qd x 1 day, then 1 po q d x 4 days AZITHROMYCIN 250 MG ORAL TABLET 297391 AZITHROMY GIOVANNI Inactive MEDROL 4 MG ORAL TABLET THERAPY PACK 6 tabs on day 1, 5 tabs on day 2, 4 tabs on day 3, 3 tabs on day 4, 2 tabs on day 5, 1 tab on day 6 2013 MEDROL 4 MG ORAL TABLET THERAPY PACK 964736 METHYLPREDNISOLONE [facility] CHERATUSSIN AC 100-10 MG/5ML ORAL SYRUP 5ml po q6hr PRN Cough 20 13/04/14 CHERATUSSIN AC 100-10 MG/5ML ORAL SYRUP 239872 GUAIFENE SIN-CODEINE Inactive TRIAMCINOLONE ACETONIDE 0.1 % EXTERNAL CREAM apply three roger es daily prn rash TRIAMCINOLONE ACETONIDE 0.1 % EXTERNAL CREAM 101 4314 TRIAMCINOLONE ACETONIDE Inactive AZITHROMYCIN 250 MG ORAL TABLET 2 po qd x 1 day, then 1 po q d x 4 days AZITHROMYCIN 250 MG ORAL TABLET 417532 AZITHROMY GIOVANNI Inactive MEDROL 4 MG ORAL TABLET THERAPY PACK 6 pills x 1 day, then 5 pills x 1 day then 4 pills x 1 day, then 3 pills x 1 day, then 2 pills x 1 day, then 1 pill x 1 day, then stop MEDROL 4 MG ORAL TABLET THERAPY PACK 663020 METHYLPREDNISOLONE Inactive AMOXICILLIN 500 MG ORAL CAPSULE 1 tab by mouth 3 times daily x 10 days AMOXICILLIN 500 MG ORAL CAPSULE 298705 AMOXICILL IN Inactive AMOXICILLIN 500 MG ORAL CAPSULE 1 tab by mouth 3 times daily x 10 days AMOXICILLIN 500 MG ORAL CAPSULE 303471 AMOXICILL IN Inactive ZITHROMAX 250 MG ORAL TABLET 2 po today, then 1 po q days 2-5 20 12/08/14 ZITHROMAX 250 MG ORAL TABLET 785185 AZITHROMYCIN [place] [facility] AUGMENTIN 875-125 MG ORAL TABLET 1 po BID x 10 days 20 13/01/20 AUGMENTIN 875-125 MG ORAL TABLET AMOXICILLIN-POT CLAVULANATE Inactive ZITHROMAX Z-REYNA 250 MG ORAL TABLET 2 today, then 1 daily for 4 d ays ZITHROMAX Z-REYNA 250 MG ORAL TABLET 277578 AZITHROMYCIN Inactive ZITHROMAX 250 MG ORAL TABLET 2 po today, then 1 po q days 2-5 20 14/03/21 ZITHROMAX 250 MG ORAL TABLET 299361 AZITHROMYCIN [place] [facility] ZITHROMAX Z-REYNA 250 MG ORAL TABLET 2 today, then 1 daily for 4 d ays ZITHROMAX Z-REYNA 250 MG ORAL TABLET 249615 AZITHROMYCIN Inactive CEFDINIR 300 MG ORAL CAPSULE 1 po BID x 10 days 06/21 CEFDINIR 300 MG ORAL CAPSULE 228663 CEFDINIR Inactive ZITHROMAX 250 MG ORAL TABLET 2 po today, then 1 po q days 2-5 20 13/08/10 ZITHROMAX 250 MG ORAL TABLET 224608 AZITHROMYCIN [facility] [facility] LEVAQUIN 500 MG ORAL TABLET 1 tablet by mouth daily 20 13/09/24 LEVAQUIN 500 MG ORAL TABLET 19971102 LEVOFLOXACIN Inactive SINGULAIR 10 MG ORAL TABLET 1 po qday for allergies 20 14/01/12 SINGULAIR 10 MG ORAL TABLET 20010504 MONTELUKAST SODIUM Inactive AMOXICILLIN 500 MG ORAL CAPSULE 2 po BID x 10 days 201 09/29/08 AMOXICILLIN 500 MG ORAL CAPSULE 136883 AMOXICILLIN Inactive PREDNISONE 20 MG ORAL TABLET 2 tabs daily for 3 days, 1 tab daily for 3 days, 1/2 tab daily for 2 days PREDNISONE 20 MG ORAL T ABLET 553433 PREDNISONE Inactive ZITHROMAX Z-REYNA 250 MG ORAL TABLET 2 today, then 1 daily for 4 d ays ZITHROMAX Z-REYNA 250 MG ORAL TABLET 419600 AZITHROMYCIN Inactive PREDNISONE 20 MG ORAL TABLET 2 tabs daily for 3 days, 1 tab daily for 3 days, 1/2 tab daily for 2 days PREDNISONE 20 MG ORAL T ABLET 892548 PREDNISONE Inactive ZITHROMAX 250 MG ORAL TABLET 2 po today, then 1 po q days 2-5 20 14/09/04 ZITHROMAX 250 MG ORAL TABLET 987094 AZITHROMYCIN [facility] AMOXICILLIN 500 MG ORAL CAPSULE 1 cap by mouth three times a day AMOXICILLIN 500 MG ORAL CAPSULE 311205 AMOXICILLIN Inactive TERBINAFINE HCL 250 MG ORAL TABLET 1 qDay for nail fungus 7 TERBINAFINE HCL 250 MG ORAL TABLET 132990 TERBINAFINE HCL Inact nael AUGMENTIN 875-125 MG ORAL TABLET 1 po BID x 10 days 20 16/03/22 AUGMENTIN 875-125 MG ORAL TABLET AMOXICILLIN-POT CLAVULANATE Inactive PREDNISONE 20 MG ORAL TABLET 2 po qd x 5 days PREDNISONE 20 MG ORAL TABLET 246929 PREDNISONE Inactive AZITHROMYCIN 250 MG ORAL TABLET 2 po qd x 1 day, then 1 po q d x 4 days AZITHROMYCIN 250 MG ORAL TABLET 881787 AZITHROMY GIOVANNI Inactive PREDNISONE 50 MG ORAL TABLET Take 50 mg dialy for 6 day s 7 PREDNISONE 50 MG ORAL TABLET 339608 PREDNISONE Inactive AUGMENTIN 875-125 MG ORAL TABLET 1 po BID x 10 days 20 18/04/16 AUGMENTIN 875-125 MG ORAL TABLET AMOXICILLIN-POT CLAVULANATE Inactive DOXYCYCLINE HYCLATE 100 MG ORAL CAPSULE 1 cap by mouth twice latasha ly DOXYCYCLINE HYCLATE 100 MG ORAL CAPSULE 8527195 DOXYCYCL INE HYCLATE Inactive PREDNISONE 20 MG ORAL TABLET Take 2 tabs day 1 and 2 and 1 t ab days 3 and 4 PREDNISONE 20 MG ORAL TABLET 763318 PREDNISONE Inactive AMOXICILLIN 500 MG ORAL CAPSULE 1 cap by mouth twice daily 10/21 AMOXICILLIN 500 MG ORAL CAPSULE 137343 AMOXICILLIN Inactive TRIAMCINOLONE ACETONIDE 0.1 % EXTERNAL OINTMENT Apply to affected areas TID PRN Rash/Itching for up 2 weeks TRIAMCINOLON E ACETONIDE 0.1 % EXTERNAL OINTMENT 5968688 TRIAMCINOLONE ACETONIDE Inactive ACYCLOVIR 800 MG ORAL TABLET 1 po 5 times daily x 7 days ACYCLOVIR 800 MG ORAL TABLET 769466 ACYCLOVIR Inactive Vital Signs Date Name Value [...] - Chem istry sodium, serum 139 mmol/L 003-764 6214/10/12 potassium, serum 3.8 mmol/L 3.5-5.2 chloride, serum 102 mmol/L 98-107 carbon dioxide, venous blood 29.4 mmol/L 21.0-32 .0 blood glucose 103 mg/dL 65-95 calcium, serum 8.8 mg/dL 8.5-10.1 urea nitrogen, blood 10 mg/dL 7-18 creatinine, serum 0.97 mg/dL 0.60-1.30 Estimated Glomerular Filtration Rate (calc) 62 (?) mL/min/1.73m2 = OR > 60 mL/min Office Visit: check-up for elmiron - Efrnanda moises RBC, urine, dipstick negative protein, total [...] negative Encounters Code Encounter Date Provider Facility CPT-58243 Level 3 Est. Patient 14:16:41 CDT David Tin dle [facility] CPT-30115 Level 3 Est. Patient 13:57:55 CDT David Tin dle [facility] CPT-97084 Level 3 Est. Patient 16:08:07 CDT David Tin dle [facility] CPT-71727 Level 3 Est. Patient 16:53:54 CDT J Livan haas MD [facility]-28104 [id number] Vst-Est Level IV 08:41:[address] Carlton Hu MD [facility] CPT-01849 Level 3 Est. Patient 09:46:49 JAMMER OPERATOR David riverae [facility] CPT-84073 [id number] Vst-Est Level III 11:12:16 CDT Yanet Bess DO [facility] CPT-55551 Level 3 Est. Patient 11:34:49 JAMMER OPERATOR Perez Mora MD [facility] CPT-43939 Level 4 Est. Patient 09:51:32 JAMMER OPERATOR Carlton rich MD [facility] CPT-32066 Level 3 Est. Patient 10:26:00 JAMMER OPERATOR Elise stephenson [facility] CPT-08577 Level 3 Est. Patient 13:35:41 JAMMER OPERATOR Carlton rich MD [facility] CPT-17696 Level 3 Est. Patient 10:03:52 JAMMER OPERATOR Carlton rich MD [facility] CPT-13877 Level 3 Est. Patient 12:17:50 CDT Hugo Restrepo MD [facility] CPT-53837 Level 3 Est. Patient 13:42:38 CDT Elise Are ll [facility] CPT-81437 Level 3 Est. Patient 13:23:51 CDT Diya Mariana mango [facility] CPT-86620 Level 3 Est. Patient 14:22:19 JAMMER OPERATOR Diya cobian [facility] CPT-78509 Level 3 Est. Patient 10:11:46 CDT Carlton rich MD [facility] CPT-83214 Level 3 Est. Patient 17:29:43 CDT Elise Are ll [facility] CPT-52256 Level 3 Est. Patient 11:58:06 CDT Elise Are [facility] CPT-88810 Level 4 Est. Patient 14:36:51 CDT Carlton rich MD [facility] CPT-48507 Level 3 Est. Patient 18:16:00 JAMMER OPERATOR Blaine HERNANDEZ [facility] CPT-93681 Level 3 Est. Patient 09:45:49 JAMMER OPERATOR Carlton rich MD [facility] CPT-90183 Level 3 Est. Patient 13:19:20 CDT Carlton rich MD [facility] CPT-01824 Level 3 Est. Patient 13:06:43 CDT Ridge tam DO [facility] CPT-65004 Level 3 Est. Patient 10:03:07 CDT Perez Mora MD [facility] CPT-79491 Level 3 Est. Patient 19:50:35 JAMMER OPERATOR Carlton rich MD [facility] CPT-42779 Level 4 Est. Patient 18:05:01 JAMMER OPERATOR Carlton rich MD [facility] [place]-55525 Level 3 Est. Patient 10:45:55 JAMMER OPERATOR Hugo Restrepo MD [facility] [place]-87894 Level 3 Est. Patient 14:12:[address] [facility] [place]-39112 Level 3 Est. Patient 17:37:24 CDT Carlton rich MD [facility] [place]-27197 Level 3 Est. Patient 16:51:54 CDT Carlton rich MD [facility] [place]-73457 Level 3 Est. Patient 12:18:11 CDT Hugo Restrepo MD [facility] [place]-41152 Level 3 Est. Patient 11:30:25 CDT Marcy crisostomo MD PhD [facility] [place]-21271 Level 3 Est. Patient 12:00:47 JAMMER OPERATOR Carlton rihc MD [facility] [place]-25855 Level 3 Est. Patient 16:31:06 JAMMER OPERATOR Carlton rich MD [facility] [place]-06919 Level 3 Est. Patient 16:23:24 JAMMER OPERATOR Ridge tam DO [facility] [place]-46058 Level 3 Est. Patient 12:34:12 CDT Carlton rich MD [facility] [place]-72803 Level 2 Est. Patient 15:43:33 CDT Robi armstrong MD [facility]-18608 Level 4 Est. Patient 14:04:44 CDT [address] rich MD [facility] [place]-23702 Level 3 Est. Patient 05:47:59 CDT Ridge tam [facility]-83675 Level 3 Est. Patient 13:12:53 JAMMER OPERATOR Carlton rich MD [facility] CPT-77396 Level 3 Est. Patient 14:26:53 CDT Hugo Restrepo MD [facility] Procedures Code Procedure Name Date Entry Date Standard Desc ription CPT-000 Give Appropriate Flu Vaccine 14:14:31 CDT 2 CPT-J1040 Depo Medrol 80 mg (Methyl Prednisolone A cetate) 10:42:44 CDT CPT-J1100 Decadron 8mg (Dexamethasone) 10:42:44 CDT 2 CPT-J0696 Rocephin 1gm Inj Solr 14:32:13 CDT CPT-J1020 Depo Medrol 60 mg (Methyl Prednisolone A cetate) 14:32:13 CDT CPT-J1100 Decadron 6mg (Dexamethasone) 14:32:13 CDT 2 CPT-72358 Hip bilat min 2V w AP pelvis 13:16:20 CDT 2 CPT-86686 Pelvis only 13:07:33 CDT CPT-97482 Spec Collection and Handling Fee 11:25:12 C DT CPT-24568 Fluzone Quadrivalent Intramuscular Suspe nsion 0.5 ML 14:31:55 CDT CPT-92251 Abx/Therapy Injection 13:28:47 JAMMER OPERATOR CPT-J2930 Solu Medrol 125 mg (Methyl Prednisolone Sodium Succinate) 12:00:47 JAMMER OPERATOR CPT-35330 Venipuncture Draw Fee 11:33:31 CDT CPT-67680 EKG Trac and Interp 11:21:09 CDT CPT-47821 Chest 2V Frontal and Lat 11:21:09 CDT 12/15 CPT-79130 Venipuncture Draw Fee 08:02:34 CDT CPT-61089 Chest 2V Frontal and Lat 05:47:59 CDT 06/05
--- OUTSIDE RECORDS SUMMARY | 2019-10-08 10:04 | XMS REPORT | Clinical Summary ---
Author Author Caitlin, Juliana Martinez Organization [facility] [facility] Address Unknown Phone Unavailable [...] URI 465.9 Inactive Ridge Bess DO Ac [place] upper respiratory infections of unspecified site Body Mass Index 35.0-35.9 Adult Refinement 2017 Ridge Bess DO Body Mass Index 35.0-35.9, adult BMI 34-34.9 Refinement Cherelle Torres RN Body Mass Index 35.0-35.9, adult BMI 35-35.9 Refinement David Marianneamisha RICEN Body Mass Index 35.0-35.9, adult BMI 34-34.9 Refinement May Vivar MD Body Mass Index 35.0-35.9, adult BMI 35-35.9 Refinement David Marianne COSTUME RENTAL CLERK Body Mass Index 35.0-35.9, adult BMI 33-33.9 Active David Marianne COSTUME RENTAL CLERK Body Mass Index 35.0-35.9, adult Upper [...] nonspecific skin eruption 782.1 Active David Marianne COSTUME RENTAL CLERK Rash and other nonspecific skin eruption Pharyngitis, acute / sore throat 462 Active 201 12/06/23 David Marianne COSTUME RENTAL CLERK Acute pharyngitis Shingles 053.9 Active David Marianne COSTUME RENTAL CLERK Herpes zoster without mention of complication BRONCHITIS [...] MD Pelvic pain, acute ICD-789.09 Inactive Hugo Restreop MD Sinusitis ICD-473.9 Inactive Hugo Restrepo MD [...] CODEINE #3 300-30 MG ORAL TABLET ACETAMINOPHEN-CODEINE 83445842709 Active David Marianne COSTUME RENTAL CLERK A ctive TRIAMCINOLONE ACETONIDE 0.1 % EXTERNAL CREAM apply bid spari ngly to rash TRIAMCINOLONE ACETONIDE 12432166791 Active David Marianne COSTUME RENTAL CLERK Active TYLENOL WITH CODEINE #3 300-30 MG ORAL TABLET 1-2 po q6hr PRN Pa in ACETAMINOPHEN-CODEINE 40760454611 No Longer Active David Marianne AP RN Active ACYCLOVIR 800 MG ORAL TABLET 1 po 5 times daily x 7 days ACYCLOVIR 09734248781 No Longer Active David Marianne COSTUME RENTAL CLERK Active TOPAMAX 100 MG ORAL TABLET 1 by mouth twice daily TOPIRAMATE 62476162238 Active Columba Raida Active TRIAMCINOLONE ACETONIDE 0.1 % EXTERNAL OINTMENT Apply to affected areas TID PRN Rash/Itching for up 2 weeks TRIAMCINOLONE ACETON KAYLA 20351924274 No Longer Active David Marianne COSTUME RENTAL CLERK Active AMOXICILLIN 500 MG ORAL CAPSULE 1 cap by mouth twice daily 10/21 AMOXICILLIN 84486579196 No Longer Active David Marianne COSTUME RENTAL CLERK Active ELMIRON 100 MG ORAL CAPSULE 2 capsules in the morning and 1 capsule at night PENTOSAN POLYSULFATE SODIUM 30722670196 Active Cinthia H art PLATEN [employer]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 CYMBALTA 30 MG ORAL CAPSULE DELAYED RELEASE PARTICLES 1 cap by mouth daily for depression DULOXETINE HCL 05860011950 No Longer Active Carlton Hu MD Active CYMBALTA 60 MG ORAL CAPSULE DELAYED RELEASE PARTICLES 1 cap by mouth daily for mood and pain DULOXETINE HCL 65465043923 Active Carlton Hu MD Active TUSSIONEX PENNKINETIC ER 10-8 MG/5ML ORAL SUSPENSION E XTENDED RELEASE 5ml po q12hr PRN Cough HYDROCOD POLST-CHLORPHEN POLST 20587239135 Active David Marianne COSTUME RENTAL CLERK Active PREDNISONE 20 MG ORAL TABLET Take 2 tabs day 1 and 2 and 1 t ab days 3 and 4 PREDNISONE 76245012713 No Longer Active David Marianne COSTUME RENTAL CLERK Active DOXYCYCLINE HYCLATE 100 MG ORAL CAPSULE 1 cap by mouth twice latasha ly DOXYCYCLINE HYCLATE 86141013647 No Longer Active David Marianne COSTUME RENTAL CLERK Active TOPAMAX 100 MG ORAL TABLET Take 1 tablet po bid TOPIRAMATE 31824536048 No Longer Active David Marianne COSTUME RENTAL CLERK Active TUSSIONEX PENNKINETIC ER 10-8 MG/5ML ORAL SUSPENSION E XTENDED RELEASE 5ml po q12hr PRN Cough HYDROCOD POLST-CHLORPHEN POLST 5 3364956598 No Longer Active David Marianne COSTUME RENTAL CLERK Active AUGMENTIN 875-125 MG ORAL TABLET 1 po BID x 10 days 18/04/16 AMOXICILLIN-POT CLAVULANATE 78175035644 No Longer Active David Marianne COSTUME RENTAL CLERK Active PREDNISONE 50 MG ORAL TABLET Take 50 mg dialy for 6 day s 7 PREDNISONE 47635668725 No Longer Active David Marianne COSTUME RENTAL CLERK Active TUSSIONEX PENNKINETIC ER 10-8 MG/5ML ORAL SUSPENSION E XTENDED RELEASE 5ml po q12hr PRN Cough HYDROCOD POLST-CHLORPHEN POLST 5 8754999689 No Longer Active Cherelle Torres RN Active PREDNISONE 20 MG ORAL TABLET two tabs by mouth today, then one tab by mouth days two and three and four PREDNISONE 57041367611 No Lo nger Active Cherelle Torres RN Active AZITHROMYCIN 250 MG ORAL TABLET 2 po qd x 1 day, then 1 po q d x 4 days AZITHROMYCIN 34418740036 No Longer Active Ridge Bess DO Active PREDNISONE 20 MG ORAL TABLET 2 po qd x 5 days P REDNISONE 65821495613 No Longer Active Perez Mora MD Active PROAIR HFA 108 (90 BASE) MCG/ACT INHALATION AEROSOL SO LUTION 2 puffs four times a day as needed ALBUTEROL SULFATE 83064981612 No Long er Active Becky FUENTES Active ASPIRIN 81 MG ORAL TABLET 1 po qd ASPIRIN 78625881527 Active Carlton Hu MD Active PREDNISONE 20 MG ORAL TABLET 1 tab twice daily for 3 d ay, then one daily for three days PREDNISONE 46347570445 No Longer Active Carlton Hu MD Active AUGMENTIN 875-125 MG ORAL TABLET 1 po BID x 10 days 20 16/03/22 AMOXICILLIN-POT CLAVULANATE 68343163960 No Longer Active Elise Garcia APRN Active TERBINAFINE HCL 250 MG ORAL TABLET 1 qDay for nail fungus 7 TERBINAFINE HCL 37642108382 No Longer Active Carlton Hu MD A ctive AMOXICILLIN 500 MG ORAL CAPSULE 1 cap by mouth three times a day AMOXICILLIN 75536555391 No Longer Active Carlton Hu MD Active ELMIRON 100 MG ORAL CAPSULE 2 tablets in the am and 1 tablet at hs PENTOSAN POLYSULFATE SODIUM 65730520337 No Longer Active Robert Hu MD Active MUCINEX D 60-600 MG ORAL TABLET EXTENDED RELEASE 12 HOUR 1 t ab po q am PSEUDOEPHEDRINE-GUAIFENESIN 22738310432 No Longer Act nael Carlton Hu MD Active MUCINEX DM MAXIMUM STRENGTH 60-1200 MG ORAL TABLET EXT ENDED RELEASE 12 HOUR 1 tab po q am DEXTROMETHORPHAN-GUAIFENESIN 35913103875 No Longer Active Carlton Hu MD Active TUSSIONEX PENNKINETIC ER 10-8 MG/5ML ORAL SUSPENSION E XTENDED RELEASE 5ml po q12hr PRN Cough HYDROCOD POLST-CHLORPHEN POLST 5 9150207952 No Longer Active Carlton Hu MD Active POTASSIUM CHLORIDE ER 20 MEQ ORAL TABLET EXTENDED RELE ASE Take 1 by mouth 4 times daily for 7 days POTASSIUM CHLORIDE 96888258978 No Longer Active Carlton Hu MD Active ZITHROMAX 250 MG ORAL TABLET 2 po today, then 1 po q days 2-5 20 14/09/04 AZITHROMYCIN 21051587453 No Longer Active Elise Garcia COSTUME RENTAL CLERK Active TUSSIONEX PENNKINETIC ER 10-8 MG/5ML ORAL SUSPENSION E XTENDED RELEASE 5 ml twice a day as needed for cough HYDROCOD POLST-CHLORPH EN POLST 57003259594 No Longer Active Elise Garcia APRN Active MONTELUKAST SODIUM 10 MG ORAL TABLET 1 po daily for Allergy MONTELUKAST SODIUM 78531930735 Active Carlton Hu MD Ac tive TUSSIONEX PENNKINETIC ER 10-8 MG/5ML ORAL SUSPENSION E XTENDED RELEASE 5ml po q12hr PRN Cough HYDROCOD POLST-CHLORPHEN POLST 5 7258735681 No Longer Active Hugo Restrepo MD Active GABAPENTIN 100 MG ORAL CAPSULE 1 po BID for fibromyalgia GABAPENTIN 14465706304 Active ALFREDO Holly Active LYRICA 100 MG ORAL CAPSULE Take 1 tab po BID for fibromyalgia 20 11/08/21 PREGABALIN 70840837112 No Longer Active Elise Garcia APRN A ctive PREDNISONE 20 MG ORAL TABLET 2 tabs daily for 3 days, 1 tab daily for 3 days, 1/2 tab daily for 2 days PREDNISONE 61919971770 No Longer Active Diya De Guzman APRN Active TUSSIONEX PENNKINETIC ER 10-8 MG/5ML ORAL SUSPENSION E XTENDED RELEASE 5 mL PO q 12 hrs PRN cough HYDROCOD POLST-CHLORPHEN POLST 813582 28004 No Longer Active Diya Guerrerol COSTUME RENTAL CLERK Active FLUTICASONE PROPIONATE 50 MCG/ACT NASAL SUSPENSION 2 s prays each nostril daily until bottle is empty FLUTICASONE PROPIONATE 149195246 99 No Longer Active Jillina Frakerriel COSTUME RENTAL CLERK Active ASMANEX 60 METERED DOSES 220 MCG/INH INHALATION AEROSO L POWDER BREATH ACTIVATED 1 puff bid with rinse after MOMETASONE FUROATE 9985396 4102 No Longer Active Venullina Cesarl COSTUME RENTAL CLERK Active ZITHROMAX Z-REYNA 250 MG ORAL TABLET 2 today, then 1 daily for 4 d ays AZITHROMYCIN 47710188309 No Longer Active Elise Garcia APRN Active TUSSIONEX PENNKINETIC ER 10-8 MG/5ML ORAL SUSPENSION E XTENDED RELEASE 5ml po q12hr PRN Cough HYDROCOD POLST-CHLORPHEN POLST 5 4212458994 No Longer Active Elise Garcia APRN Active PREDNISONE 20 MG ORAL TABLET 2 tabs daily for 3 days, 1 tab daily for 3 days, 1/2 tab daily for 2 days PREDNISONE 60002032477 No Longer Active Diya De Guzman APRN Active AMOXICILLIN 500 MG ORAL CAPSULE 2 po BID x 10 days 201 09/29/08 AMOXICILLIN 97917281487 No Longer Active Diya De Guzman APRN Act nael SINGULAIR 10 MG ORAL TABLET 1 po qday for allergies 20 14/01/12 MONTELUKAST SODIUM 10988154281 No Longer Active Carlton Hu MD Active LEVAQUIN 500 MG ORAL TABLET 1 tablet by mouth daily 20 13/09/24 LEVOFLOXACIN 97064202785 No Longer Active Carlton Hu MD Acti ve FLUTICASONE PROPIONATE 50 MCG/ACT NASAL SUSPENSION 2 s prays each nostril daily for 2 weeks, then 1 spray each nostril daily. FLUTICASONE PROPIONATE 56894026367 Active Carlton Hu MD Active ZITHROMAX 250 MG ORAL TABLET 2 po today, then 1 po q days 2-5 20 13/08/10 AZITHROMYCIN 93363520314 No Longer Active Elise Garcia APRN Active XANAX 0.5 MG ORAL TABLET one tablet by mouth daily prn anxiety 2015 ALPRAZOLAM 51760840044 Active ALFREDO Holly Active CEFDINIR 300 MG ORAL CAPSULE 1 po BID x 10 days CEFDINIR 65909546133 No Longer Active Carlton Hu MD Active ZOCOR 40 MG ORAL TABLET 1 tab by mouth daily SI MVASTATIN 19708004840 No Longer Active Carlton Hu MD Active CYCLOBENZAPRINE HCL 10 MG ORAL TABLET 1 tablet by mouth BID prn had pain CYCLOBENZAPRINE HCL 87800904629 No Longer Active Jayden Hu MD Active LEVOFLOXACIN 500 MG ORAL TABLET 1 tab PO daily x 10 days LEVOFLOXACIN 30903525446 No Longer Active Carlton Hu MD Acti ve PREDNISONE 20 MG ORAL TABLET 3 tab PO qd x 2d, 2 tab P O qd x 2d, 1 tab PO qd x 2d, 1/2 tab PO qd x 2d PREDNISONE 86508943941 No Lo nger Active Carlton Hu MD Active FLUTICASONE PROPIONATE 50 MCG/ACT NASAL SUSPENSION 1 t o 2 sprays each nostril daily FLUTICASONE PROPIONATE 79442386431 No Longer Ac tive Blaine HERNANDEZ Active CHERATUSSIN AC 100-10 MG/5ML ORAL SYRUP 1 tsp by mouth every 4 hours as needed for cough GUAIFENESIN-CODEINE 23335001005 No Longe r Active Blaine HERNANDEZ Active PROMETHAZINE-CODEINE 6.25-10 MG/5ML ORAL SYRUP 1 tsp b y mouth every 6 hours if needed for cough PROMETHAZINE-CODEINE 92854525554 No Longer Active Blaine HERNANDEZ Active CHERATUSSIN AC 100-10 MG/5ML ORAL SYRUP 1 tsp by mouth every 4 hours as needed for cough GUAIFENESIN-CODEINE 89238734409 No Longe r Active Blaine HERNANDEZ Active ZITHROMAX Z-REYNA 250 MG ORAL TABLET 2 today, then 1 daily for 4 d ays AZITHROMYCIN 69335741922 No Longer Active Columba Raida Act nael ZITHROMAX 250 MG ORAL TABLET 2 po today, then 1 po q days 2-5 20 14/03/21 AZITHROMYCIN 66619652052 No Longer Active Carlton Hu MD Active ZITHROMAX Z-REYNA 250 MG ORAL TABLET 2 today, then 1 daily for 4 d ays AZITHROMYCIN 59820614448 No Longer Active Columba Raida Act nael AUGMENTIN 875-125 MG ORAL TABLET 1 po BID x 10 days 13/01/20 AMOXICILLIN-POT CLAVULANATE 45927624635 No Longer Active Diya De Guzman APRN Active ZITHROMAX 250 MG ORAL TABLET 2 po today, then 1 po q days 2-5 20 12/08/14 AZITHROMYCIN 00275527524 No Longer Active Carlton Hu MD Active TRAMADOL HCL 50 MG ORAL TABLET 1 po tid with ES Tylenol TRAMADOL HCL 68761003792 Active ALFREDO Holly Active PREMARIN 0.625 MG ORAL TABLET TAKE 1 TAB BY MOUTH DAILY ESTROGENS CONJUGATED 83764361185 No Longer Active Ridge Bess DO A ctive CYMBALTA 30 MG ORAL CAPSULE DELAYED RELEASE PARTICLES 1 cap by mouth daily DULOXETINE HCL 53442075352 No Longer Active Ridge tam DO Active AMOXICILLIN 500 MG ORAL CAPSULE 1 tab by mouth 3 times daily x 10 days AMOXICILLIN 93971141509 No Longer Active Carlton bustamante MD Active AMOXICILLIN 500 MG ORAL CAPSULE 1 tab by mouth 3 times daily x 10 days AMOXICILLIN 07075732387 No Longer Active Carlton bustamante MD Active PROMETHAZINE-CODEINE 6.25-10 MG/5ML ORAL SYRUP 1 tsp b y mouth every 8 hours prn cough PROMETHAZINE-CODEINE 25202404428 No Longer Acti ve Carlton Hu MD Active MEDROL 4 MG ORAL TABLET THERAPY PACK 6 pills x 1 day, then 5 pills x 1 day then 4 pills x 1 day, then 3 pills x 1 day, then 2 pills x 1 day, then 1 pill x 1 day, then stop METHYLPREDNISOLONE 05581614509 No Long er Active Perez Mora MD Active AZITHROMYCIN 250 MG ORAL TABLET 2 po qd x 1 day, then 1 po q d x 4 days AZITHROMYCIN 91200148522 No Longer Active Perez Ambriz MD Active SYMBICORT 160-4.5 MCG/ACT INHALATION AEROSOL 2 puffs bid wit h rinse after BUDESONIDE-FORMOTEROL FUMARATE 14636841925 N o Longer Active Perez Mora MD Active LYRICA 75 MG ORAL CAPSULE TAKE 1 CAPSULE BY MOUTH TWICE DAILY PREGABALIN 72628006295 No Longer Active Carlton Hu MD Acti ve TOPAMAX 25 MG ORAL TABLET 1 qHS x 1 week, then 1 BID x 1 week, then 1 qAM and 2 qHS x 1 week, then 2 BID (migraine prevention) T OPIRAMATE 82490357296 No Longer Active Jerica FUENTES Active TOPAMAX 50 MG ORAL TABLET take 1 tab po BID for migraines. 07/02 TOPIRAMATE 16795388501 No Longer Active Jerica FUENTES Active TRIAMCINOLONE ACETONIDE 0.1 % EXTERNAL CREAM apply three roger es daily prn rash TRIAMCINOLONE ACETONIDE 86773031726 No Longer Active Carlton Hu MD Active PAXIL 40 MG ORAL TABLET take 1 tab po qday for depression 0 PAROXETINE HCL 11386302700 Active Carlton Hu MD Active CHERATUSSIN AC 100-10 MG/5ML ORAL SYRUP 5ml po q6hr PRN Cough 20 13/04/14 GUAIFENESIN-CODEINE 69696315344 No Longer Active Carlton Hu MD Active MEDROL 4 MG ORAL TABLET THERAPY PACK 6 tabs on day 1, 5 tabs on day 2, 4 tabs on day 3, 3 tabs on day 4, 2 tabs on day 5, 1 tab on day 6 2013 METHYLPREDNISOLONE 23100845171 No Longer Active Perez Mora MD Active AZITHROMYCIN 250 MG ORAL TABLET 2 po qd x 1 day, then 1 po q d x 4 days AZITHROMYCIN 03380515603 No Longer Active Perez Ambriz MD Active PROPRANOLOL HCL 60 MG ORAL TABLET 1 PO Q D PROPRANOLOL HCL 82025336548 No Longer Active Perez Mora MD Activ e CHERATUSSIN AC 100-10 MG/5ML ORAL SYRUP take one tsp po Q 6h ours prn cough GUAIFENESIN-CODEINE 58274623071 No Longer Active Zia Mora MD Active AUGMENTIN 875-125 MG ORAL TABLET 1 tab by mouth twice daily with food AMOXICILLIN-POT CLAVULANATE 76523583667 No Longer Act nael Perez Mora MD Active CHERATUSSIN AC 100-10 MG/5ML ORAL SYRUP 1 tsp by mouth every 4 hours as needed for cough GUAIFENESIN-CODEINE 49958275254 No Longe r Active Hugo Restrepo MD Active ACETAMINOPHEN-CODEINE #3 300-30 MG ORAL TABLET 1 PO Q 4-6 HRS IL N PAIN ACETAMINOPHEN-CODEINE 04219741397 No Longer Active Hugo Restrepo MD Active LEVAQUIN 500 MG ORAL TABLET take one po QD LEVO FLOXACIN 38331627937 No Longer Active Griffin HERNANDEZ Active PREDNISONE 20 MG ORAL TABLET Take 3 tabs daily for 3 d ays, 2 tabs daily for 3 days, 1 tab daily for 3 days, 1/2 tab daily for 3 days 11/07 PREDNISONE 28523527595 No Longer Active Carlton Hu MD Acti ve AVELOX 400 MG ORAL TABLET 1 tab by mouth daily MOXIFLOXACIN HCL 31008858125 No Longer Active Carlton Hu MD Active CHERATUSSIN AC 100-10 MG/5ML ORAL SYRUP 1 tsp by mouth every 4 hours as needed for cough GUAIFENESIN-CODEINE 66290179863 No Longe r Active Hugo Restrepo MD Active AVELOX 400 MG ORAL TABLET 1 tab by mouth daily MOXIFLOXACIN HCL 73902574240 No Longer Active Marcy De La Rosa MD PhD Active TERBINAFINE HCL 250 MG ORAL TABLET 1 qDay T ERBINAFINE HCL 08106903942 No Longer Active Marcy De La Rosa MD PhD Active CHERATUSSIN AC 100-10 MG/5ML ORAL SYRUP 1 tsp by mouth every 4 hours as needed for cough GUAIFENESIN-CODEINE 09472403491 No Longe r Active Marcy eD La Rosa MD PhD Active AVELOX 400 MG ORAL TABLET 1 tab by mouth daily MOXIFLOXACIN HCL 72490090040 No Longer Active Marcy De La Rosa MD PhD Active HYDROCODONE-ACETAMINOPHEN 5-325 MG ORAL TABLET 1 po q 6hr PRN co ugh HYDROCODONE-ACETAMINOPHEN 45273323160 No Longer Active Marcy De La Rosa MD PhD Active PREDNISONE 20 MG ORAL TABLET 2 tabs daily for 3 days, 1 tab daily for 3 days, 1/2 tab daily for 2 days PREDNISONE 27536675964 No Longer Active Carlton Hu MD Active CEFDINIR 300 MG ORAL CAPSULE by mouth twice a day 2011 CEFDINIR 43851677736 No Longer Active Carlton Hu MD Acti ve HYDROCHLOROTHIAZIDE 25 MG ORAL TABLET 1 TAB PO DAILY HYDROCHLOROTHIAZIDE 15622158456 Active Carlton Hu MD A ctive ACETAMINOPHEN-CODEINE #3 300-30 MG ORAL TABLET 1 tablet po q 4-6 hrs prn pain ACETAMINOPHEN-CODEINE 55412666284 No Longer Active Ridge Bess DO Active ZITHROMAX 250 MG ORAL TABLET 2 po today, then 1 po q days 2-5 20 03/07/07 AZITHROMYCIN 57476943012 No Longer Active Carlton Hu MD Active CHERATUSSIN AC 100-10 MG/5ML ORAL SYRUP take 1 tsp po q4-6 h ours prn cough GUAIFENESIN-CODEINE 09719237941 No Longer Active Jayden Hu MD Active ACETAMINOPHEN-CODEINE #3 300-30 MG ORAL TABLET 1 PO Q 4-6 HR PRN PAIN ACETAMINOPHEN-CODEINE 09372496248 No Longer Active Da raimundo Hu MD Active LORTAB 7.5-500 MG/15ML ORAL ELIXIR 7.5 ml po q 4 hour prn cough HYDROCODONE-ACETAMINOPHEN 86962135097 No Longer Active Carlton Hu MD Active PREDNISONE 20 MG ORAL TABLET 1 po bid 3 days, then 1 po q day 3 days PREDNISONE 04989417269 No Longer Active Carlton Hu MD Active CEFDINIR 300 MG ORAL CAPSULE by mouth twice a day 2011 CEFDINIR 68216895748 No Longer Active Carlton Hu MD Acti ve CEFDINIR 300 MG ORAL CAPSULE by mouth twice a day 2010 CEFDINIR 23587339004 No Longer Active Carlton Hu MD Acti ve CEFDINIR 300 MG ORAL CAPSULE by mouth twice a day 2010 CEFDINIR 06223976343 No Longer Active Carlton Hu MD Acti ve TESSALON PERLES 100 MG ORAL CAPSULE 1 tablet by mouth 3 times daily as needed for cough BENZONATATE 31024524006 No Longer Active Carlton Hu MD Active CEFDINIR 300 MG ORAL CAPSULE by mouth twice a day 2010 CEFDINIR 83230624104 No Longer Active Carlton Hu MD Acti ve ZITHROMAX Z-REYNA 250 MG ORAL TABLET 2 today, then 1 daily for 4 d ays AZITHROMYCIN 33159370704 No Longer Active Hugo Restrepo MD Active TESSALON PERLES 100 MG ORAL CAPSULE 1 tablet by mouth 3 times daily as needed for cough TESSALON PERLES 100 MG ORAL CAPSULE 28753 7 BENZONATATE Inactive PREDNISONE 20 MG ORAL TABLET 1 po bid 3 days, then 1 po q day 3 days PREDNISONE 20 MG ORAL TABLET 396522 PREDNISONE Greer ctive LORTAB 7.5-500 MG/15ML ORAL [...] cough CHERATUSSIN AC 100-10 MG/5ML ORAL SYRUP 251386 GUAIFENESIN-CODEINE Inactive ACETAMINOPHEN-CODEINE #3 300-30 MG ORAL TABLET 1 tablet po q 4-6 hrs prn pain ACETAMINOPHEN-CODEINE #3 300-30 MG ORAL TABLET ACETAMINOPHEN-CODEINE Inactive HYDROCODONE-ACETAMINOPHEN 5-325 MG ORAL TABLET 1 po q 6hr PRN co ugh HYDROCODONE-ACETAMINOPHEN 5-325 MG ORAL TABLET 594425 HYDROCODONE-ACETAMINOPHEN Inactive AVELOX 400 MG ORAL TABLET 1 tab by mouth daily AVELOX 400 MG ORAL TABLET MOXIFLOXACIN HCL Inactive CHERATUSSIN AC 100-10 MG/5ML ORAL SYRUP 1 tsp by mouth every 4 hours as needed for cough CHERATUSSIN AC 100-10 MG/5ML ORAL SYRUP 9 28532 GUAIFENESIN-CODEINE Inactive TERBINAFINE HCL 250 MG ORAL TABLET 1 qDay 07/08 TERBINAFINE HCL 250 MG ORAL TABLET 682138 TERBINAFINE HCL Inactive CHERATUSSIN AC 100-10 MG/5ML ORAL SYRUP 1 tsp by mouth every 4 hours as needed for cough CHERATUSSIN AC 100-10 MG/5ML ORAL SYRUP 9 15718 GUAIFENESIN-CODEINE Inactive ACETAMINOPHEN-CODEINE #3 300-30 MG ORAL TABLET 1 PO Q 4-6 HRS IL N PAIN ACETAMINOPHEN-CODEINE #3 300-30 MG ORAL TABLET ACETAMINOPHEN-CODEINE Inactive CHERATUSSIN AC 100-10 MG/5ML ORAL SYRUP 1 tsp by mouth every 4 hours as needed for cough CHERATUSSIN AC 100-10 MG/5ML ORAL SYRUP 9 28227 GUAIFENESIN-CODEINE Inactive AUGMENTIN 875-125 MG ORAL TABLET 1 tab by mouth twice daily with food AUGMENTIN 875-125 MG ORAL TABLET AMOXICIL MADELINE-POT CLAVULANATE Inactive CHERATUSSIN AC 100-10 MG/5ML ORAL SYRUP take one tsp po Q 6h ours prn cough CHERATUSSIN AC 100-10 MG/5ML ORAL SYRUP 501410 GUAIFENESIN-CODEINE Inactive PROPRANOLOL HCL 60 MG ORAL TABLET 1 PO Q D PROPRANOLOL HCL 60 MG ORAL TABLET 744716 PROPRANOLOL HCL Inactive TOPAMAX 50 MG ORAL TABLET take 1 tab po BID for migraines. 07/02 TOPAMAX 50 MG ORAL TABLET 306091 TOPIRAMATE Inacti ve TOPAMAX 25 MG ORAL TABLET 1 qHS x 1 week, then 1 BID x 1 week, then 1 qAM and 2 qHS x 1 week, then 2 BID (migraine prevention) TOPAMAX 25 MG ORAL TABLET 516830 TOPIRAMATE Inactive LYRICA 75 MG ORAL CAPSULE TAKE 1 CAPSULE BY MOUTH TWICE DAILY LYRICA 75 MG ORAL CAPSULE 369532 PREGABALIN Inactive SYMBICORT 160-4.5 MCG/ACT INHALATION AEROSOL 2 puffs bid wit h rinse after SYMBICORT 160-4.5 MCG/ACT INHALATION AEROSOL BUDESONIDE- FORMOTEROL FUMARATE Inactive PROMETHAZINE-CODEINE 6.25-10 MG/5ML ORAL SYRUP 1 tsp b y mouth every 8 hours prn cough PROMETHAZINE-CODEINE 6.25-10 MG/ 5ML ORAL SYRUP 731639 PROMETHAZINE-CODEINE Inactive CYMBALTA 30 MG ORAL CAPSULE DELAYED RELEASE PARTICLES 1 cap by mouth daily CYMBALTA 30 MG ORAL CAPSULE DELAYED RELE ASE PARTICLES 103258 DULOXETINE HCL Inactive PREMARIN 0.625 MG ORAL TABLET TAKE 1 TAB BY MOUTH DAILY PREMARIN 0.625 MG ORAL TABLET ESTROGENS CONJUGATED Inactive CHERATUSSIN AC 100-10 MG/5ML ORAL SYRUP 1 tsp by mouth every 4 hours as needed for cough CHERATUSSIN AC 100-10 MG/5ML ORAL SYRUP 9 84983 GUAIFENESIN-CODEINE Inactive PROMETHAZINE-CODEINE 6.25-10 MG/5ML ORAL SYRUP 1 tsp b y mouth every 6 hours if needed for cough PROMETHAZINE-CODEINE 6.25-10 MG/5ML ORAL SYRUP 559002 PROMETHAZINE-CODEINE Inactive CHERATUSSIN AC 100-10 MG/5ML ORAL SYRUP 1 tsp by mouth every 4 hours as needed for cough CHERATUSSIN AC 100-10 MG/5ML ORAL SYRUP 9 87225 GUAIFENESIN-CODEINE Inactive FLUTICASONE PROPIONATE 50 MCG/ACT NASAL SUSPENSION 1 t o 2 sprays each nostril daily FLUTICASONE PROPIONATE 50 MCG/AC T NASAL SUSPENSION 0631572 FLUTICASONE PROPIONATE Inactive PREDNISONE 20 MG ORAL TABLET 3 tab PO qd x 2d, 2 tab P O qd x 2d, 1 tab PO qd x 2d, 1/2 tab PO qd x 2d PREDNISONE 20 MG ORAL TAB LET 492366 PREDNISONE Inactive LEVOFLOXACIN 500 MG ORAL TABLET 1 tab PO daily x 10 days LEVOFLOXACIN 500 MG ORAL TABLET 496477 LEVOFLOXACIN Inactive CYCLOBENZAPRINE HCL 10 MG ORAL TABLET 1 tablet by mouth BID prn had pain CYCLOBENZAPRINE HCL 10 MG ORAL TABLET 179437 CYCLOBENZAPRINE HCL Inactive ZOCOR 40 MG ORAL TABLET 1 tab by mouth daily 4 ZOCOR 40 MG ORAL TABLET 632511 SIMVASTATIN Inactive TUSSIONEX PENNKINETIC ER 10-8 MG/5ML [...] FLUTICASONE PROPIO EFE 50 MCG/ACT NASAL SUSPENSION 5131510 FLUTICASONE PROPIONATE Inactive TUSSIONEX PENNKINETIC ER 10-8 MG/5ML ORAL SUSPENSION E XTENDED RELEASE 5 mL PO q 12 hrs PRN cough TUSSIONEX PENNKINETI C ER 10-8 MG/5ML ORAL SUSPENSION EXTENDED RELEASE HYDROCOD POLST-CHLORPHEN POLST I nactive LYRICA 100 MG ORAL CAPSULE Take 1 tab po BID for fibromyalgia 20 11/08/21 LYRICA 100 MG ORAL CAPSULE 885902 PREGABALIN Inact nael TUSSIONEX PENNKINETIC ER 10-8 [...] three days PREDNISONE 20 MG ORAL TABLET 300639 PREDNIS ONE Inactive PROAIR HFA 108 (90 BASE) MCG/ACT INHALATION AEROSOL SO LUTION 2 puffs four times a day as needed PROAIR HFA 108 (90 B ASE) MCG/ACT INHALATION AEROSOL SOLUTION ALBUTEROL SULFATE Inactive PREDNISONE 20 MG ORAL TABLET two tabs by mouth today, then one tab by mouth days two and three and four PREDNISONE 20 MG ORAL TAB LET 668214 PREDNISONE Inactive TUSSIONEX PENNKINETIC ER 10-8 MG/5ML [...] bid 04/20 TOPAMAX 100 MG ORAL TABLET 307182 TOPIRAMATE Inactive CYMBALTA 30 MG ORAL CAPSULE DELAYED RELEASE PARTICLES 1 cap by mouth daily for depression CYMBALTA 30 MG ORAL CAPSULE DELAYED RELEASE PARTICLES 363629 DULOXETINE HCL Inactive TYLENOL WITH CODEINE #3 300-30 MG ORAL TABLET 1-2 po q6hr PRN Pa in TYLENOL WITH CODEINE #3 300-30 MG ORAL TABLET ACETAMINOPHEN-CODEINE Inactive ZITHROMAX Z-REYNA 250 MG ORAL TABLET 2 today, then 1 daily for 4 d ays ZITHROMAX Z-REYNA 250 MG ORAL TABLET 472614 AZITHROMYCIN Inactive CEFDINIR 300 MG ORAL CAPSULE by mouth twice a day 2010 CEFDINIR 300 MG ORAL CAPSULE 288911 CEFDINIR Inactive CEFDINIR 300 MG ORAL CAPSULE by mouth twice a day 2010 CEFDINIR 300 MG ORAL CAPSULE 924964 CEFDINIR Inactive CEFDINIR 300 MG ORAL CAPSULE by mouth twice a day 2010 CEFDINIR 300 MG ORAL CAPSULE 794679 CEFDINIR Inactive CEFDINIR 300 MG ORAL CAPSULE by mouth twice a day 2011 CEFDINIR 300 MG ORAL CAPSULE 887884 CEFDINIR Inactive ZITHROMAX 250 MG ORAL TABLET 2 po today, then 1 po q days 2-5 03/07/07 ZITHROMAX 250 MG ORAL TABLET 020108 AZITHROMYCIN Greer ctive CEFDINIR 300 MG ORAL CAPSULE by mouth twice a day 2011 CEFDINIR 300 MG ORAL CAPSULE 20020704 CEFDINIR Inactive PREDNISONE 20 MG ORAL TABLET 2 tabs daily for 3 days, 1 tab daily for 3 days, 1/2 tab daily for 2 days PREDNISONE 20 MG ORAL T ABLET 127979 PREDNISONE Inactive AVELOX 400 MG ORAL TABLET [...] days 11/07 PREDNISONE 20 MG ORAL TABLET 425632 PREDNISONE Inactive LEVAQUIN 500 MG ORAL TABLET take one po QD LEVAQUIN 500 MG ORAL TABLET 000651 LEVOFLOXACIN Inactive AZITHROMYCIN 250 MG ORAL TABLET 2 po qd x 1 day, then 1 po q d x 4 days AZITHROMYCIN 250 MG ORAL TABLET 591340 AZITHROMY GIOVANNI Inactive MEDROL 4 MG ORAL TABLET THERAPY PACK 6 tabs on day 1, 5 tabs on day 2, 4 tabs on day 3, 3 tabs on day 4, 2 tabs on day 5, 1 tab on day 6 2013 MEDROL 4 MG ORAL TABLET THERAPY PACK 103677 METHYLPREDNISOLONE Greer ctive CHERATUSSIN AC 100-10 MG/5ML ORAL SYRUP 5ml po q6hr PRN Cough 20 13/04/14 CHERATUSSIN AC 100-10 MG/5ML ORAL SYRUP 547903 GUAIFENE SIN-CODEINE Inactive TRIAMCINOLONE ACETONIDE 0.1 % EXTERNAL CREAM apply three roger es daily prn rash TRIAMCINOLONE ACETONIDE 0.1 % EXTERNAL CREAM 101 4314 TRIAMCINOLONE ACETONIDE Inactive AZITHROMYCIN 250 MG ORAL TABLET 2 po qd x 1 day, then 1 po q d x 4 days AZITHROMYCIN 250 MG ORAL TABLET 833796 AZITHROMY GIOVANNI Inactive MEDROL 4 MG ORAL TABLET THERAPY PACK 6 pills x 1 day, then 5 pills x 1 day then 4 pills x 1 day, then 3 pills x 1 day, then 2 pills x 1 day, then 1 pill x 1 day, then stop MEDROL 4 MG ORAL TABLET THERAPY PACK 590842 METHYLPREDNISOLONE Inactive AMOXICILLIN 500 MG ORAL CAPSULE 1 tab by mouth 3 times daily x 10 days AMOXICILLIN 500 MG ORAL CAPSULE 037540 AMOXICILL IN Inactive AMOXICILLIN 500 MG ORAL CAPSULE 1 tab by mouth 3 times daily x 10 days AMOXICILLIN 500 MG ORAL CAPSULE 782190 AMOXICILL IN Inactive ZITHROMAX 250 MG ORAL TABLET 2 po today, then 1 po q days 2-5 20 12/08/14 ZITHROMAX 250 MG ORAL TABLET 363918 AZITHROMYCIN [place] ctive AUGMENTIN 875-125 MG ORAL TABLET 1 po BID x 10 days 20 13/01/20 AUGMENTIN 875-125 MG ORAL TABLET AMOXICILLIN-POT CLAVULANATE Inactive ZITHROMAX Z-REYNA 250 MG ORAL TABLET 2 today, then 1 daily for 4 d ays ZITHROMAX Z-REYNA 250 MG ORAL TABLET 288036 AZITHROMYCIN Inactive ZITHROMAX 250 MG ORAL TABLET 2 po today, then 1 po q days 2-5 20 14/03/21 ZITHROMAX 250 MG ORAL TABLET 628635 AZITHROMYCIN Ani[place] ctive ZITHROMAX Z-REYNA 250 MG ORAL TABLET 2 today, then 1 daily for 4 d ays ZITHROMAX Z-REYNA 250 MG ORAL TABLET 678324 AZITHROMYCIN Inactive CEFDINIR 300 MG ORAL CAPSULE 1 po BID x 10 days 06/21 CEFDINIR 300 MG ORAL CAPSULE 115989 CEFDINIR Inactive ZITHROMAX 250 MG ORAL TABLET 2 po today, then 1 po q days 2-5 20 13/08/10 ZITHROMAX 250 MG ORAL TABLET 082248 AZITHROMYCIN [place] ctive LEVAQUIN 500 MG ORAL TABLET 1 tablet by mouth daily 20 13/09/24 LEVAQUIN 500 MG ORAL TABLET 19971102 LEVOFLOXACIN Inactive SINGULAIR 10 MG ORAL TABLET 1 po qday for allergies 20 14/01/12 SINGULAIR 10 MG ORAL TABLET 20010504 MONTELUKAST SODIUM Inactive AMOXICILLIN 500 MG ORAL CAPSULE 2 po BID x 10 days 201 09/29/08 AMOXICILLIN 500 MG ORAL CAPSULE 560300 AMOXICILLIN Inactive PREDNISONE 20 MG ORAL TABLET 2 tabs daily for 3 days, 1 tab daily for 3 days, 1/2 tab daily for 2 days PREDNISONE 20 MG ORAL T ABLET 159595 PREDNISONE Inactive ZITHROMAX Z-REYNA 250 MG ORAL TABLET 2 today, then 1 daily for 4 d ays ZITHROMAX Z-REYNA 250 MG ORAL TABLET 993541 AZITHROMYCIN Inactive PREDNISONE 20 MG ORAL TABLET 2 tabs daily for 3 days, 1 tab daily for 3 days, 1/2 tab daily for 2 days PREDNISONE 20 MG ORAL T ABLET 852568 PREDNISONE Inactive ZITHROMAX 250 MG ORAL TABLET 2 po today, then 1 po q days 2-5 20 14/09/04 ZITHROMAX 250 MG ORAL TABLET 568171 AZITHROMYCIN Greer ctive AMOXICILLIN 500 MG ORAL CAPSULE 1 cap by mouth three times a day AMOXICILLIN 500 MG ORAL CAPSULE 503041 AMOXICILLIN Inactive TERBINAFINE HCL 250 MG ORAL TABLET 1 qDay for nail fungus 7 TERBINAFINE HCL 250 MG ORAL TABLET 834223 TERBINAFINE HCL Inact nael AUGMENTIN 875-125 MG ORAL TABLET 1 po BID x 10 days 20 16/03/22 AUGMENTIN 875-125 MG ORAL TABLET AMOXICILLIN-POT CLAVULANATE Inactive PREDNISONE 20 MG ORAL TABLET 2 po qd x 5 days PREDNISONE 20 MG ORAL TABLET 991415 PREDNISONE Inactive AZITHROMYCIN 250 MG ORAL TABLET 2 po qd x 1 day, then 1 po q d x 4 days AZITHROMYCIN 250 MG ORAL TABLET 623669 AZITHROMY GIOVANNI Inactive PREDNISONE 50 MG ORAL TABLET Take 50 mg dialy for 6 day s 7 PREDNISONE 50 MG ORAL TABLET 268572 PREDNISONE Inactive AUGMENTIN 875-125 MG ORAL TABLET 1 po BID x 10 days 20 18/04/16 AUGMENTIN 875-125 MG ORAL TABLET AMOXICILLIN-POT CLAVULANATE Inactive DOXYCYCLINE HYCLATE 100 MG ORAL CAPSULE 1 cap by mouth twice latasha ly DOXYCYCLINE HYCLATE 100 MG ORAL CAPSULE 5467596 DOXYCYCL INE HYCLATE Inactive PREDNISONE 20 MG ORAL TABLET Take 2 tabs day 1 and 2 and 1 t ab days 3 and 4 PREDNISONE 20 MG ORAL TABLET 422137 PREDNISONE Inactive AMOXICILLIN 500 MG ORAL CAPSULE 1 cap by mouth twice daily 10/21 AMOXICILLIN 500 MG ORAL CAPSULE 400418 AMOXICILLIN Inactive TRIAMCINOLONE ACETONIDE 0.1 % EXTERNAL OINTMENT Apply to affected areas TID PRN Rash/Itching for up 2 weeks TRIAMCINOLON E ACETONIDE 0.1 % EXTERNAL OINTMENT 9844277 TRIAMCINOLONE ACETONIDE Inactive ACYCLOVIR 800 MG ORAL TABLET 1 po 5 times daily x 7 days ACYCLOVIR 800 MG ORAL TABLET 590290 ACYCLOVIR Inactive Vital Signs Date Name Value [...] - Chem istry sodium, serum 139 mmol/L 568-772 6607/10/12 potassium, serum 3.8 mmol/L 3.5-5.2 chloride, serum [...] negative Encounters Code Encounter Date Provider Facility CPT-31098 Level 3 Est. Patient 14:16:41 CDT David Tin dle [facility] CPT-41474 Level 3 Est. Patient 13:57:55 CDT David Tin dle [facility] CPT-30150 Level 3 Est. Patient 16:08:07 CDT David Tin dle [facility] CPT-26488 Level 3 Est. Patient 16:53:54 CDT J Livan haas MD [facility]-11766 [id number] Vst-Est Level IV 08:41:[address] Carlton Hu MD [facility] CPT-74037 Level 3 Est. Patient 09:46:49 PERIOPERATIVE NURSE David Antonino riverae [facility]-12742 [id number] Vst-Est Level III 11:12:16 CDT Yanet Bess DO [facility] CPT-43123 Level 3 Est. Patient 11:34:49 PERIOPERATIVE NURSE Perez Mora MD [facility] CPT-74382 Level 4 Est. Patient 09:51:32 PERIOPERATIVE NURSE Carlton rich MD [facility] CPT-69988 Level 3 Est. Patient 10:26:00 PERIOPERATIVE NURSE Elise stephenson [facility] CPT-69417 Level 3 Est. Patient 13:35:41 PERIOPERATIVE NURSE Carlton rich MD [facility] CPT-56238 Level 3 Est. Patient 10:03:52 PERIOPERATIVE NURSE Carlton rich MD [facility] CPT-24531 Level 3 Est. Patient 12:17:50 CDT Hugo Restrepo MD [facility] CPT-92700 Level 3 Est. Patient 13:42:38 CDT Elise Are ll [facility] CPT-36490 Level 3 Est. Patient 13:23:51 CDT Diya Mariana mango [facility] CPT-03077 Level 3 Est. Patient 14:22:19 PERIOPERATIVE NURSE Diya cobian [facility] CPT-44246 Level 3 Est. Patient 10:11:46 CDT Carlotn rich MD [facility] CPT-95138 Level 3 Est. Patient 17:29:43 CDT Elise Are [facility] CPT-44793 Level 3 Est. Patient 11:58:06 CDT Elise Are [facility] CPT-83841 Level 4 Est. Patient 14:36:51 CDT Carlton rich MD [facility] CPT-12929 Level 3 Est. Patient 18:16:00 PERIOPERATIVE NURSE Blaine HERNANDEZ [facility] CPT-26001 Level 3 Est. Patient 09:45:49 PERIOPERATIVE NURSE Carlton rich MD [facility] CPT-56275 Level 3 Est. Patient 13:19:20 CDT Carlton rich MD [facility] CPT-65479 Level 3 Est. Patient 13:06:43 CDT Ridge tam DO [facility] CPT-82261 Level 3 Est. Patient 10:03:07 CDT Perez Mora MD [facility] CPT-20994 Level 3 Est. Patient 19:50:35 PERIOPERATIVE NURSE Carlton rich MD [facility] CPT-11946 Level 4 Est. Patient 18:05:01 PERIOPERATIVE NURSE Carlton rich MD [facility] CPT-02932 Level 3 Est. Patient 10:45:55 PERIOPERATIVE NURSE Hugo Restrepo MD [facility]-86842 Level 3 Est. Patient 14:12:49 CDT Griffin HERNANDEZ [facility]-70340 Level 3 Est. Patient 17:37:24 CDT Carlton rich MD [facility]-70931 Level 3 Est. Patient 16:51:54 CDT Carlton rich MD [facility]-81702 Level 3 Est. Patient 12:18:11 CDT Hugo Restrepo MD [facility]-35218 Level 3 Est. Patient 11:30:25 CDT Marcy crisostomo MD PhD [facility]-18958 Level 3 Est. Patient 12:00:47 PERIOPERATIVE NURSE Carlton rich MD [facility]-67659 Level 3 Est. Patient 16:31:06 PERIOPERATIVE NURSE Carlton rich MD [facility]-04832 Level 3 Est. Patient 16:23:24 PERIOPERATIVE NURSE Ridge tam DO [facility] CPT-69138 Level 3 Est. Patient 12:34:12 CDT Carlton rich MD [facility]-99944 Level 2 Est. Patient 15:43:33 CDT Robi armstrong MD [facility]-72369 Level 4 Est. Patient 14:04:44 CDT Carlton rich MD [facility]-54640 Level 3 Est. Patient 05:47:59 CDT Ridge tam [facility]-04203 Level 3 Est. Patient 13:12:53 PERIOPERATIVE NURSE Carlton rich MD [facility] CPT-90192 Level 3 Est. Patient 14:26:53 CDT Hugo Restrepo MD [facility] Procedures Code Procedure Name Date Entry Date Standard Desc ription CPT-000 Give Appropriate Flu Vaccine 14:14:31 CDT 2 CPT-J1040 Depo Medrol 80 mg (Methyl Prednisolone A cetate) 10:42:44 CDT CPT-J1100 Decadron 8mg (Dexamethasone) 10:42:44 CDT 2 CPT-J0696 Rocephin 1gm Inj Solr 14:32:13 CDT CPT-J1020 Depo Medrol 60 mg (Methyl Prednisolone A cetate) 14:32:13 CDT CPT-J1100 Decadron 6mg (Dexamethasone) 14:32:13 CDT 2 CPT-03258 Hip bilat min 2V w AP pelvis 13:16:20 CDT 2 CPT-77436 Pelvis only 13:07:33 CDT CPT-94158 Spec Collection and Handling Fee 11:25:12 C DT CPT-62248 Fluzone Quadrivalent Intramuscular Suspe nsion 0.5 ML 14:31:55 CDT CPT-95799 Abx/Therapy Injection 13:28:47 PERIOPERATIVE NURSE CPT-J2930 Solu Medrol 125 mg (Methyl Prednisolone Sodium Succinate) 12:00:47 PERIOPERATIVE NURSE CPT-61940 Venipuncture Draw Fee 11:33:31 CDT CPT-67493 EKG Trac and Interp 11:21:09 CDT CPT-62555 Chest 2V Frontal and Lat 11:21:09 CDT 12/15 CPT-14273 Venipuncture Draw Fee 08:02:34 CDT CPT-17541 Chest 2V Frontal and Lat 05:47:59 CDT 06/05
--- OUTSIDE RECORDS SUMMARY | 2019-10-08 10:05 | XMS REPORT | Clinical Summary ---
Author Author Caitlin, Juliana Martinez Organization [employer] [facility] Address Unknown Phone Unavailable [...] 465.9 Inactive Ridge Bess DO Ac [place] upper respiratory infections of unspecified site Body Mass Index 35.0-35.9 Adult Refinement 2017 Ridge Bess DO Body Mass Index 35.0-35.9, adult BMI 34-34.9 Refinement Cherelle Torres RN Body Mass Index 35.0-35.9, adult BMI 35-35.9 Refinement David Marianneamisha RICEN Body Mass Index 35.0-35.9, adult BMI 34-34.9 Refinement May Vivar MD Body Mass Index 35.0-35.9, adult BMI 35-35.9 Refinement David Marianne DEPARTURE CLERK Body Mass Index 35.0-35.9, adult BMI 33-33.9 Active David Marianne DEPARTURE CLERK Body Mass Index 35.0-35.9, adult Upper [...] nonspecific skin eruption 782.1 Active David Marianne DEPARTURE CLERK Rash and other nonspecific skin eruption Pharyngitis, acute / sore throat 462 Active 201 12/06/23 David Marianne DEPARTURE CLERK Acute pharyngitis Shingles 053.9 Active David Marianne DEPARTURE CLERK Herpes zoster without mention of complication [...] CODEINE #3 300-30 MG ORAL TABLET ACETAMINOPHEN-CODEINE 91820548151 Active David Marianne DEPARTURE CLERK A ctive TRIAMCINOLONE ACETONIDE 0.1 % EXTERNAL CREAM apply bid spari ngly to rash TRIAMCINOLONE ACETONIDE 97096741568 Active David Marianne DEPARTURE CLERK Active TYLENOL WITH CODEINE #3 300-30 MG ORAL TABLET 1-2 po q6hr PRN Pa in ACETAMINOPHEN-CODEINE 96771550012 No Longer Active David Marianne AP RN Active ACYCLOVIR 800 MG ORAL TABLET 1 po 5 times daily x 7 days ACYCLOVIR 83358103581 No Longer Active David Marianne DEPARTURE CLERK Active TOPAMAX 100 MG ORAL TABLET 1 by mouth twice daily TOPIRAMATE 69261050079 Active Columba Raida Active TRIAMCINOLONE ACETONIDE 0.1 % EXTERNAL OINTMENT Apply to affected areas TID PRN Rash/Itching for up 2 weeks TRIAMCINOLONE ACETON KAYLA 25320820543 No Longer Active David Marianne DEPARTURE CLERK Active AMOXICILLIN 500 MG ORAL CAPSULE 1 cap by mouth twice daily 10/21 AMOXICILLIN 93051396528 No Longer Active David Marianne DEPARTURE CLERK Active ELMIRON 100 MG ORAL CAPSULE 2 capsules in the morning and 1 capsule at night PENTOSAN POLYSULFATE SODIUM 84709911312 Active Cinthia H art COMEDIAN Active CYMBALTA 30 MG ORAL CAPSULE DELAYED RELEASE PARTICLES 1 cap by mouth daily for depression DULOXETINE HCL 75488615243 No Longer Active Carlton Hu MD Active CYMBALTA 60 MG ORAL CAPSULE DELAYED RELEASE PARTICLES 1 cap by mouth daily for mood and pain DULOXETINE HCL 20141003423 Active Carlton Hu MD Active TUSSIONEX PENNKINETIC ER 10-8 MG/5ML ORAL SUSPENSION E XTENDED RELEASE 5ml po q12hr PRN Cough HYDROCOD POLST-CHLORPHEN POLST 85745729900 Active David Marianne DEPARTURE CLERK Active PREDNISONE 20 MG ORAL TABLET Take 2 tabs day 1 and 2 and 1 t ab days 3 and 4 PREDNISONE 34012433179 No Longer Active David Marianne DEPARTURE CLERK Active DOXYCYCLINE HYCLATE 100 MG ORAL CAPSULE 1 cap by mouth twice latasha ly DOXYCYCLINE HYCLATE 88056358819 No Longer Active David Marianne DEPARTURE CLERK Active TOPAMAX 100 MG ORAL TABLET Take 1 tablet po bid TOPIRAMATE 26964578252 No Longer Active David Marianne DEPARTURE CLERK Active TUSSIONEX PENNKINETIC ER 10-8 MG/5ML ORAL SUSPENSION E XTENDED RELEASE 5ml po q12hr PRN Cough HYDROCOD POLST-CHLORPHEN POLST 5 2792371140 No Longer Active David Marianne DEPARTURE CLERK Active AUGMENTIN 875-125 MG ORAL TABLET 1 po BID x 10 days 18/04/16 AMOXICILLIN-POT CLAVULANATE 58145295415 No Longer Active David Marianne DEPARTURE CLERK Active PREDNISONE 50 MG ORAL TABLET Take 50 mg dialy for 6 day s 7 PREDNISONE 97839296892 No Longer Active David Marianne DEPARTURE CLERK Active TUSSIONEX PENNKINETIC ER 10-8 MG/5ML ORAL SUSPENSION E XTENDED RELEASE 5ml po q12hr PRN Cough HYDROCOD POLST-CHLORPHEN POLST 5 2533495909 No Longer Active Cherelle Torres RN Active PREDNISONE 20 MG ORAL TABLET two tabs by mouth today, then one tab by mouth days two and three and four PREDNISONE 92180158056 No Lo nger Active Cherelle Torres RN Active AZITHROMYCIN 250 MG ORAL TABLET 2 po qd x 1 day, then 1 po q d x 4 days AZITHROMYCIN 60122140469 No Longer Active Ridge Bess DO Active PREDNISONE 20 MG ORAL TABLET 2 po qd x 5 days P REDNISONE 50171008281 No Longer Active Perez Mora MD Active PROAIR HFA 108 (90 BASE) MCG/ACT INHALATION AEROSOL SO LUTION 2 puffs four times a day as needed ALBUTEROL SULFATE 07876213759 No Long er Active Becky FUENTES Active ASPIRIN 81 MG ORAL TABLET 1 po qd ASPIRIN 43189345825 Active Carlton Hu MD Active PREDNISONE 20 MG ORAL TABLET 1 tab twice daily for 3 d ay, then one daily for three days PREDNISONE 43069096507 No Longer Active Carlton Hu MD Active AUGMENTIN 875-125 MG ORAL TABLET 1 po BID x 10 days 16/03/22 AMOXICILLIN-POT CLAVULANATE 54041578409 No Longer Active Elise Garcia APRN Active TERBINAFINE HCL 250 MG ORAL TABLET 1 qDay for nail fungus 7 TERBINAFINE HCL 43559115693 No Longer Active Carlton Hu MD A ctive AMOXICILLIN 500 MG ORAL CAPSULE 1 cap by mouth three times a day AMOXICILLIN 65617537379 No Longer Active Carlton Hu MD Active ELMIRON 100 MG ORAL CAPSULE 2 tablets in the am and 1 tablet at hs PENTOSAN POLYSULFATE SODIUM 92423545306 No Longer Active Robert Hu MD Active MUCINEX D 60-600 MG ORAL TABLET EXTENDED RELEASE 12 HOUR 1 t ab po q am PSEUDOEPHEDRINE-GUAIFENESIN 98491187589 No Longer Act nael Carlton Hu MD Active MUCINEX DM MAXIMUM STRENGTH 60-1200 MG ORAL TABLET EXT ENDED RELEASE 12 HOUR 1 tab po q am DEXTROMETHORPHAN-GUAIFENESIN 90716382652 No Longer Active Carlton Hu MD Active TUSSIONEX PENNKINETIC ER 10-8 MG/5ML ORAL SUSPENSION E XTENDED RELEASE 5ml po q12hr PRN Cough HYDROCOD POLST-CHLORPHEN POLST 5 2501278547 No Longer Active Carlton Hu MD Active POTASSIUM CHLORIDE ER 20 MEQ ORAL TABLET EXTENDED RELE ASE Take 1 by mouth 4 times daily for 7 days POTASSIUM CHLORIDE 75034566337 No Longer Active Carlton Hu MD Active ZITHROMAX 250 MG ORAL TABLET 2 po today, then 1 po q days 2-5 20 14/09/04 AZITHROMYCIN 33021459176 No Longer Active Elise Garcia APRN Active TUSSIONEX PENNKINETIC ER 10-8 MG/5ML ORAL SUSPENSION E XTENDED RELEASE 5 ml twice a day as needed for cough HYDROCOD POLST-CHLORPH EN POLST 50746649699 No Longer Active Elise Garcia APRN Active MONTELUKAST SODIUM 10 MG ORAL TABLET 1 po daily for Allergy MONTELUKAST SODIUM 96889125044 Active Carlton Hu MD Ac tive TUSSIONEX PENNKINETIC ER 10-8 MG/5ML ORAL SUSPENSION E XTENDED RELEASE 5ml po q12hr PRN Cough HYDROCOD POLST-CHLORPHEN POLST 5 9724160542 No Longer Active Hugo Restrepo MD Active GABAPENTIN 100 MG ORAL CAPSULE 1 po BID for fibromyalgia GABAPENTIN 24304041834 Active ALFREDO Holly Active LYRICA 100 MG ORAL CAPSULE Take 1 tab po BID for fibromyalgia 20 11/08/21 PREGABALIN 26581005666 No Longer Active Elise Garcia APRN A ctive PREDNISONE 20 MG ORAL TABLET 2 tabs daily for 3 days, 1 tab daily for 3 days, 1/2 tab daily for 2 days PREDNISONE 06643106506 No Longer Active Diya De Guzman APRN Active TUSSIONEX PENNKINETIC ER 10-8 MG/5ML ORAL SUSPENSION E XTENDED RELEASE 5 mL PO q 12 hrs PRN cough HYDROCOD POLST-CHLORPHEN POLST 319325 19939 No Longer Active Diya De Guzman DEPARTURE CLERK Active FLUTICASONE PROPIONATE 50 MCG/ACT NASAL SUSPENSION 2 s prays each nostril daily until bottle is empty FLUTICASONE PROPIONATE 978299765 99 No Longer Active Jillina Cesarl DEPARTURE CLERK Active ASMANEX 60 METERED DOSES 220 MCG/INH INHALATION AEROSO L POWDER BREATH ACTIVATED 1 puff bid with rinse after MOMETASONE FUROATE 7501064 4102 No Longer Active Venullina Gege DEPARTURE CLERK Active ZITHROMAX Z-REYNA 250 MG ORAL TABLET 2 today, then 1 daily for 4 d ays AZITHROMYCIN 75942642509 No Longer Active Elise Garcia APRN Active TUSSIONEX PENNKINETIC ER 10-8 MG/5ML ORAL SUSPENSION E XTENDED RELEASE 5ml po q12hr PRN Cough HYDROCOD POLST-CHLORPHEN POLST 5 9039392283 No Longer Active Elise Garcia APRN Active PREDNISONE 20 MG ORAL TABLET 2 tabs daily for 3 days, 1 tab daily for 3 days, 1/2 tab daily for 2 days PREDNISONE 90841265865 No Longer Active Diya De Guzman APRN Active AMOXICILLIN 500 MG ORAL CAPSULE 2 po BID x 10 days 201 09/29/08 AMOXICILLIN 30782104588 No Longer Active Diya De Guzman APRN Act nael SINGULAIR 10 MG ORAL TABLET 1 po qday for allergies 20 14/01/12 MONTELUKAST SODIUM 06885796403 No Longer Active Carlton Hu MD Active LEVAQUIN 500 MG ORAL TABLET 1 tablet by mouth daily 20 13/09/24 LEVOFLOXACIN 25155569525 No Longer Active Carlton Hu MD Acti ve FLUTICASONE PROPIONATE 50 MCG/ACT NASAL SUSPENSION 2 s prays each nostril daily for 2 weeks, then 1 spray each nostril daily. FLUTICASONE PROPIONATE 38103268822 Active Carlton Hu MD Active ZITHROMAX 250 MG ORAL TABLET 2 po today, then 1 po q days 2-5 20 13/08/10 AZITHROMYCIN 49745032065 No Longer Active Elise Arell DEPARTURE CLERK Active XANAX 0.5 MG ORAL TABLET one tablet by mouth daily prn anxiety 2015 ALPRAZOLAM 84349411092 Active ALFREDO Holly Active CEFDINIR 300 MG ORAL CAPSULE 1 po BID x 10 days CEFDINIR 72818789355 No Longer Active Carlton Hu MD Active ZOCOR 40 MG ORAL TABLET 1 tab by mouth daily SI MVASTATIN 25908508680 No Longer Active Carlton Hu MD Active CYCLOBENZAPRINE HCL 10 MG ORAL TABLET 1 tablet by mouth BID prn had pain CYCLOBENZAPRINE HCL 83949968766 No Longer Active Jayden Hu MD Active LEVOFLOXACIN 500 MG ORAL TABLET 1 tab PO daily x 10 days LEVOFLOXACIN 78270116496 No Longer Active Carlton Hu MD Acti ve PREDNISONE 20 MG ORAL TABLET 3 tab PO qd x 2d, 2 tab P O qd x 2d, 1 tab PO qd x 2d, 1/2 tab PO qd x 2d PREDNISONE 70898428510 No Lo nger Active Carlton Hu MD Active FLUTICASONE PROPIONATE 50 MCG/ACT NASAL SUSPENSION 1 t o 2 sprays each nostril daily FLUTICASONE PROPIONATE 16487247923 No Longer Ac tive Blaine HERNANDEZ Active CHERATUSSIN AC 100-10 MG/5ML ORAL SYRUP 1 tsp by mouth every 4 hours as needed for cough GUAIFENESIN-CODEINE 84608162235 No Longe r Active Blaine HERNANDEZ Active PROMETHAZINE-CODEINE 6.25-10 MG/5ML ORAL SYRUP 1 tsp b y mouth every 6 hours if needed for cough PROMETHAZINE-CODEINE 27225609235 No Longer Active Blaine HERNANDEZ Active CHERATUSSIN AC 100-10 MG/5ML ORAL SYRUP 1 tsp by mouth every 4 hours as needed for cough GUAIFENESIN-CODEINE 48093867682 No Longe r Active Blaine HERNANDEZ Active ZITHROMAX Z-REYNA 250 MG ORAL TABLET 2 today, then 1 daily for 4 d ays AZITHROMYCIN 73984845786 No Longer Active Columba Raida Act nael ZITHROMAX 250 MG ORAL TABLET 2 po today, then 1 po q days 2-5 20 14/03/21 AZITHROMYCIN 79521537892 No Longer Active Carlton Hu MD Active ZITHROMAX Z-REYNA 250 MG ORAL TABLET 2 today, then 1 daily for 4 d ays AZITHROMYCIN 02108751475 No Longer Active Columba Raida Act nael AUGMENTIN 875-125 MG ORAL TABLET 1 po BID x 10 days 13/01/20 AMOXICILLIN-POT CLAVULANATE 71572037951 No Longer Active Diya De Guzman APRN Active ZITHROMAX 250 MG ORAL TABLET 2 po today, then 1 po q days 2-5 20 12/08/14 AZITHROMYCIN 07264552779 No Longer Active Carlton Hu MD Active TRAMADOL HCL 50 MG ORAL TABLET 1 po tid with ES Tylenol TRAMADOL HCL 08172830527 Active Carlton Hu MD Active PREMARIN 0.625 MG ORAL TABLET TAKE 1 TAB BY MOUTH DAILY ESTROGENS CONJUGATED 17420531213 No Longer Active Ridge Bess DO A ctive CYMBALTA 30 MG ORAL CAPSULE DELAYED RELEASE PARTICLES 1 cap by mouth daily DULOXETINE HCL 89806901344 No Longer Active Ridge Ya ee DO Active AMOXICILLIN 500 MG ORAL CAPSULE 1 tab by mouth 3 times daily x 10 days AMOXICILLIN 20738621905 No Longer Active Carlton bustamante MD Active AMOXICILLIN 500 MG ORAL CAPSULE 1 tab by mouth 3 times daily x 10 days AMOXICILLIN 96098689859 No Longer Active Carlton bustamante MD Active PROMETHAZINE-CODEINE 6.25-10 MG/5ML ORAL SYRUP 1 tsp b y mouth every 8 hours prn cough PROMETHAZINE-CODEINE 79215269819 No Longer Acti ve Carlton Hu MD Active MEDROL 4 MG ORAL TABLET THERAPY PACK 6 pills x 1 day, then 5 pills x 1 day then 4 pills x 1 day, then 3 pills x 1 day, then 2 pills x 1 day, then 1 pill x 1 day, then stop METHYLPREDNISOLONE 11332038754 No Long er Active Perez Mora MD Active AZITHROMYCIN 250 MG ORAL TABLET 2 po qd x 1 day, then 1 po q d x 4 days AZITHROMYCIN 98157275112 No Longer Active Perez Ambriz MD Active SYMBICORT 160-4.5 MCG/ACT INHALATION AEROSOL 2 puffs bid wit h rinse after BUDESONIDE-FORMOTEROL FUMARATE 18329491796 N o Longer Active Perez Mora MD Active LYRICA 75 MG ORAL CAPSULE TAKE 1 CAPSULE BY MOUTH TWICE DAILY PREGABALIN 98934333244 No Longer Active Carlton Hu MD Acti ve TOPAMAX 25 MG ORAL TABLET 1 qHS x 1 week, then 1 BID x 1 week, then 1 qAM and 2 qHS x 1 week, then 2 BID (migraine prevention) T OPIRAMATE 99218354359 No Longer Active Jerica FUENTES Active TOPAMAX 50 MG ORAL TABLET take 1 tab po BID for migraines. 07/02 TOPIRAMATE 55772926288 No Longer Active Jerica FUENTES Active TRIAMCINOLONE ACETONIDE 0.1 % EXTERNAL CREAM apply three roger es daily prn rash TRIAMCINOLONE ACETONIDE 66950346588 No Longer Active Carlton Hu MD Active PAXIL 40 MG ORAL TABLET take 1 tab po qday for depression 0 PAROXETINE HCL 54518638099 Active Carlton Hu MD Active CHERATUSSIN AC 100-10 MG/5ML ORAL SYRUP 5ml po q6hr PRN Cough 20 13/04/14 GUAIFENESIN-CODEINE 90062536077 No Longer Active Carlton Hu MD Active MEDROL 4 MG ORAL TABLET THERAPY PACK 6 tabs on day 1, 5 tabs on day 2, 4 tabs on day 3, 3 tabs on day 4, 2 tabs on day 5, 1 tab on day 6 2013 METHYLPREDNISOLONE 38438651087 No Longer Active Perez Mora MD Active AZITHROMYCIN 250 MG ORAL TABLET 2 po qd x 1 day, then 1 po q d x 4 days AZITHROMYCIN 14133989617 No Longer Active Perez Ambriz MD Active PROPRANOLOL HCL 60 MG ORAL TABLET 1 PO Q D PROPRANOLOL HCL 45595212852 No Longer Active Perez Mora MD Activ e CHERATUSSIN AC 100-10 MG/5ML ORAL SYRUP take one tsp po Q 6h ours prn cough GUAIFENESIN-CODEINE 49206664301 No Longer Active Zia Mora MD Active AUGMENTIN 875-125 MG ORAL TABLET 1 tab by mouth twice daily with food AMOXICILLIN-POT CLAVULANATE 08910590773 No Longer Act nael Perez Mroa MD Active CHERATUSSIN AC 100-10 MG/5ML ORAL SYRUP 1 tsp by mouth every 4 hours as needed for cough GUAIFENESIN-CODEINE 68349011987 No Longe r Active Hugo Restrepo MD Active ACETAMINOPHEN-CODEINE #3 300-30 MG ORAL TABLET 1 PO Q 4-6 HRS UT N PAIN ACETAMINOPHEN-CODEINE 32341098202 No Longer Active Hugo Restrepo MD Active LEVAQUIN 500 MG ORAL TABLET take one po QD LEVO FLOXACIN 62770603729 No Longer Active Griffin HERNANDEZ Active PREDNISONE 20 MG ORAL TABLET Take 3 tabs daily for 3 d ays, 2 tabs daily for 3 days, 1 tab daily for 3 days, 1/2 tab daily for 3 days 11/07 PREDNISONE 41123995297 No Longer Active Carlton Hu MD Acti ve AVELOX 400 MG ORAL TABLET 1 tab by mouth daily MOXIFLOXACIN HCL 78165883331 No Longer Active Carlton Hu MD Active CHERATUSSIN AC 100-10 MG/5ML ORAL SYRUP 1 tsp by mouth every 4 hours as needed for cough GUAIFENESIN-CODEINE 52429739387 No Longe r Active Hugo Restrepo MD Active AVELOX 400 MG ORAL TABLET 1 tab by mouth daily MOXIFLOXACIN HCL 67045225847 No Longer Active Marcy De La Rosa MD PhD Active TERBINAFINE HCL 250 MG ORAL TABLET 1 qDay T ERBINAFINE HCL 40434769734 No Longer Active aMrcy De La Rosa MD PhD Active CHERATUSSIN AC 100-10 MG/5ML ORAL SYRUP 1 tsp by mouth every 4 hours as needed for cough GUAIFENESIN-CODEINE 77171332248 No Longe r Active Marcy De La Rosa MD PhD Active AVELOX 400 MG ORAL TABLET 1 tab by mouth daily MOXIFLOXACIN HCL 25073610044 No Longer Active Marcy De La Rosa MD PhD Active HYDROCODONE-ACETAMINOPHEN 5-325 MG ORAL TABLET 1 po q 6hr PRN co ugh HYDROCODONE-ACETAMINOPHEN 94698902311 No Longer Active Marcy De La Rosa MD PhD Active PREDNISONE 20 MG ORAL TABLET 2 tabs daily for 3 days, 1 tab daily for 3 days, 1/2 tab daily for 2 days PREDNISONE 67078720901 No Longer Active Carlton Hu MD Active CEFDINIR 300 MG ORAL CAPSULE by mouth twice a day 2011 CEFDINIR 18141583751 No Longer Active Carlton Hu MD Acti ve HYDROCHLOROTHIAZIDE 25 MG ORAL TABLET 1 TAB PO DAILY HYDROCHLOROTHIAZIDE 35479357721 Active Carlton Hu MD A ctive ACETAMINOPHEN-CODEINE #3 300-30 MG ORAL TABLET 1 tablet po q 4-6 hrs prn pain ACETAMINOPHEN-CODEINE 17903394475 No Longer Active Ridge Bess DO Active ZITHROMAX 250 MG ORAL TABLET 2 po today, then 1 po q days 2-5 20 03/07/07 AZITHROMYCIN 07376584253 No Longer Active Carlton Hu MD Active CHERATUSSIN AC 100-10 MG/5ML ORAL SYRUP take 1 tsp po q4-6 h ours prn cough GUAIFENESIN-CODEINE 30220804253 No Longer Active Jayden Hu MD Active ACETAMINOPHEN-CODEINE #3 300-30 MG ORAL TABLET 1 PO Q 4-6 HR PRN PAIN ACETAMINOPHEN-CODEINE 38427021915 No Longer Active Da raimundo Hu MD Active LORTAB 7.5-500 MG/15ML ORAL ELIXIR 7.5 ml po q 4 hour prn cough HYDROCODONE-ACETAMINOPHEN 66775672143 No Longer Active Carlton Hu MD Active PREDNISONE 20 MG ORAL TABLET 1 po bid 3 days, then 1 po q day 3 days PREDNISONE 28808331969 No Longer Active Carlton Hu MD Active CEFDINIR 300 MG ORAL CAPSULE by mouth twice a day 2011 CEFDINIR 74960131933 No Longer Active Carlton Hu MD Acti ve CEFDINIR 300 MG ORAL CAPSULE by mouth twice a day 2010 CEFDINIR 99661642406 No Longer Active Carlton Hu MD Acti ve CEFDINIR 300 MG ORAL CAPSULE by mouth twice a day 2010 CEFDINIR 18204918517 No Longer Active Carlton Hu MD Acti ve TESSALON PERLES 100 MG ORAL CAPSULE 1 tablet by mouth 3 times daily as needed for cough BENZONATATE 93366805031 No Longer Active Carlton Hu MD Active CEFDINIR 300 MG ORAL CAPSULE by mouth twice a day 2010 CEFDINIR 10700055284 No Longer Active Carlton Hu MD Acti ve ZITHROMAX Z-REYNA 250 MG ORAL TABLET 2 today, then 1 daily for 4 d ays AZITHROMYCIN 73201854913 No Longer Active Hugo Restrepo MD Active TESSALON PERLES 100 MG ORAL CAPSULE 1 tablet by mouth 3 times daily as needed for cough TESSALON PERLES 100 MG ORAL CAPSULE 80027 7 BENZONATATE Inactive PREDNISONE 20 MG ORAL TABLET 1 po bid 3 days, then 1 po q day 3 days PREDNISONE 20 MG ORAL TABLET 582236 PREDNISONE Greer ctive LORTAB 7.5-500 MG/15ML ORAL [...] cough CHERATUSSIN AC 100-10 MG/5ML ORAL SYRUP 363951 GUAIFENESIN-CODEINE Inactive ACETAMINOPHEN-CODEINE #3 300-30 MG ORAL TABLET 1 tablet po q 4-6 hrs prn pain ACETAMINOPHEN-CODEINE #3 300-30 MG ORAL TABLET ACETAMINOPHEN-CODEINE Inactive HYDROCODONE-ACETAMINOPHEN 5-325 MG ORAL TABLET 1 po q 6hr PRN co ugh HYDROCODONE-ACETAMINOPHEN 5-325 MG ORAL TABLET 086095 HYDROCODONE-ACETAMINOPHEN Inactive AVELOX 400 MG ORAL TABLET 1 tab by mouth daily AVELOX 400 MG ORAL TABLET MOXIFLOXACIN HCL Inactive CHERATUSSIN AC 100-10 MG/5ML ORAL SYRUP 1 tsp by mouth every 4 hours as needed for cough CHERATUSSIN AC 100-10 MG/5ML ORAL SYRUP 9 29363 GUAIFENESIN-CODEINE Inactive TERBINAFINE HCL 250 MG ORAL TABLET 1 qDay 07/08 TERBINAFINE HCL 250 MG ORAL TABLET 818319 TERBINAFINE HCL Inactive CHERATUSSIN AC 100-10 MG/5ML ORAL SYRUP 1 tsp by mouth every 4 hours as needed for cough CHERATUSSIN AC 100-10 MG/5ML ORAL SYRUP 9 76757 GUAIFENESIN-CODEINE Inactive ACETAMINOPHEN-CODEINE #3 300-30 MG ORAL TABLET 1 PO Q 4-6 HRS UT N PAIN ACETAMINOPHEN-CODEINE #3 300-30 MG ORAL TABLET ACETAMINOPHEN-CODEINE Inactive CHERATUSSIN AC 100-10 MG/5ML ORAL SYRUP 1 tsp by mouth every 4 hours as needed for cough CHERATUSSIN AC 100-10 MG/5ML ORAL SYRUP 9 32538 GUAIFENESIN-CODEINE Inactive AUGMENTIN 875-125 MG ORAL TABLET 1 tab by mouth twice daily with food AUGMENTIN 875-125 MG ORAL TABLET AMOXICIL MADELINE-POT CLAVULANATE Inactive CHERATUSSIN AC 100-10 MG/5ML ORAL SYRUP take one tsp po Q 6h ours prn cough CHERATUSSIN AC 100-10 MG/5ML ORAL SYRUP 006830 GUAIFENESIN-CODEINE Inactive PROPRANOLOL HCL 60 MG ORAL TABLET 1 PO Q D PROPRANOLOL HCL 60 MG ORAL TABLET 573158 PROPRANOLOL HCL Inactive TOPAMAX 50 MG ORAL TABLET take 1 tab po BID for migraines. 07/02 TOPAMAX 50 MG ORAL TABLET 869029 TOPIRAMATE Inacti ve TOPAMAX 25 MG ORAL TABLET 1 qHS x 1 week, then 1 BID x 1 week, then 1 qAM and 2 qHS x 1 week, then 2 BID (migraine prevention) TOPAMAX 25 MG ORAL TABLET 867504 TOPIRAMATE Inactive LYRICA 75 MG ORAL CAPSULE TAKE 1 CAPSULE BY MOUTH TWICE DAILY LYRICA 75 MG ORAL CAPSULE 013115 PREGABALIN Inactive SYMBICORT 160-4.5 MCG/ACT INHALATION AEROSOL 2 puffs bid wit h rinse after SYMBICORT 160-4.5 MCG/ACT INHALATION AEROSOL BUDESONIDE- FORMOTEROL FUMARATE Inactive PROMETHAZINE-CODEINE 6.25-10 MG/5ML ORAL SYRUP 1 tsp b y mouth every 8 hours prn cough PROMETHAZINE-CODEINE 6.25-10 MG/ 5ML ORAL SYRUP 035670 PROMETHAZINE-CODEINE Inactive CYMBALTA 30 MG ORAL CAPSULE DELAYED RELEASE PARTICLES 1 cap by mouth daily CYMBALTA 30 MG ORAL CAPSULE DELAYED RELE ASE PARTICLES 524023 DULOXETINE HCL Inactive PREMARIN 0.625 MG ORAL TABLET TAKE 1 TAB BY MOUTH DAILY PREMARIN 0.625 MG ORAL TABLET ESTROGENS CONJUGATED Inactive CHERATUSSIN AC 100-10 MG/5ML ORAL SYRUP 1 tsp by mouth every 4 hours as needed for cough CHERATUSSIN AC 100-10 MG/5ML ORAL SYRUP 9 73034 GUAIFENESIN-CODEINE Inactive PROMETHAZINE-CODEINE 6.25-10 MG/5ML ORAL SYRUP 1 tsp b y mouth every 6 hours if needed for cough PROMETHAZINE-CODEINE 6.25-10 MG/5ML ORAL SYRUP 217596 PROMETHAZINE-CODEINE Inactive CHERATUSSIN AC 100-10 MG/5ML ORAL SYRUP 1 tsp by mouth every 4 hours as needed for cough CHERATUSSIN AC 100-10 MG/5ML ORAL SYRUP 9 86508 GUAIFENESIN-CODEINE Inactive FLUTICASONE PROPIONATE 50 MCG/ACT NASAL SUSPENSION 1 t o 2 sprays each nostril daily FLUTICASONE PROPIONATE 50 MCG/AC T NASAL SUSPENSION 7050096 FLUTICASONE PROPIONATE Inactive PREDNISONE 20 MG ORAL TABLET 3 tab PO qd x 2d, 2 tab P O qd x 2d, 1 tab PO qd x 2d, 1/2 tab PO qd x 2d PREDNISONE 20 MG ORAL TAB LET 371732 PREDNISONE Inactive LEVOFLOXACIN 500 MG ORAL TABLET 1 tab PO daily x 10 days LEVOFLOXACIN 500 MG ORAL TABLET 516458 LEVOFLOXACIN Inactive CYCLOBENZAPRINE HCL 10 MG ORAL TABLET 1 tablet by mouth BID prn had pain CYCLOBENZAPRINE HCL 10 MG ORAL TABLET 508047 CYCLOBENZAPRINE HCL Inactive ZOCOR 40 MG ORAL TABLET 1 tab by mouth daily 4 ZOCOR 40 MG ORAL TABLET 005761 SIMVASTATIN Inactive TUSSIONEX PENNKINETIC ER 10-8 MG/5ML [...] FLUTICASONE PROPIO EFE 50 MCG/ACT NASAL SUSPENSION 0225867 FLUTICASONE PROPIONATE Inactive TUSSIONEX PENNKINETIC ER 10-8 MG/5ML ORAL SUSPENSION E XTENDED RELEASE 5 mL PO q 12 hrs PRN cough TUSSIONEX PENNKINETI C ER 10-8 MG/5ML ORAL SUSPENSION EXTENDED RELEASE HYDROCOD POLST-CHLORPHEN POLST I nactive LYRICA 100 MG ORAL CAPSULE Take 1 tab po BID for fibromyalgia 20 11/08/21 LYRICA 100 MG ORAL CAPSULE 231688 PREGABALIN Inact nael TUSSIONEX PENNKINETIC ER 10-8 [...] three days PREDNISONE 20 MG ORAL TABLET 174544 PREDNIS ONE Inactive PROAIR HFA 108 (90 BASE) MCG/ACT INHALATION AEROSOL SO LUTION 2 puffs four times a day as needed PROAIR HFA 108 (90 B ASE) MCG/ACT INHALATION AEROSOL SOLUTION ALBUTEROL SULFATE Inactive PREDNISONE 20 MG ORAL TABLET two tabs by mouth today, then one tab by mouth days two and three and four PREDNISONE 20 MG ORAL TAB LET 353385 PREDNISONE Inactive TUSSIONEX PENNKINETIC ER 10-8 MG/5ML [...] bid 04/20 TOPAMAX 100 MG ORAL TABLET 704057 TOPIRAMATE Inactive CYMBALTA 30 MG ORAL CAPSULE DELAYED RELEASE PARTICLES 1 cap by mouth daily for depression CYMBALTA 30 MG ORAL CAPSULE DELAYED RELEASE PARTICLES 539832 DULOXETINE HCL Inactive TYLENOL WITH CODEINE #3 300-30 MG ORAL TABLET 1-2 po q6hr PRN Pa in TYLENOL WITH CODEINE #3 300-30 MG ORAL TABLET ACETAMINOPHEN-CODEINE Inactive ZITHROMAX Z-REYNA 250 MG ORAL TABLET 2 today, then 1 daily for 4 d ays ZITHROMAX Z-REYNA 250 MG ORAL TABLET 918209 AZITHROMYCIN Inactive CEFDINIR 300 MG ORAL CAPSULE by mouth twice a day 2010 CEFDINIR 300 MG ORAL CAPSULE 312766 CEFDINIR Inactive CEFDINIR 300 MG ORAL CAPSULE by mouth twice a day 2010 CEFDINIR 300 MG ORAL CAPSULE 625129 CEFDINIR Inactive CEFDINIR 300 MG ORAL CAPSULE by mouth twice a day 2010 CEFDINIR 300 MG ORAL CAPSULE 522368 CEFDINIR Inactive CEFDINIR 300 MG ORAL CAPSULE by mouth twice a day 2011 CEFDINIR 300 MG ORAL CAPSULE 386196 CEFDINIR Inactive ZITHROMAX 250 MG ORAL TABLET 2 po today, then 1 po q days 2-5 03/07/07 ZITHROMAX 250 MG ORAL TABLET 307667 AZITHROMYCIN [place] CEFDINIR 300 MG ORAL CAPSULE by mouth twice a day 2011 CEFDINIR 300 MG ORAL CAPSULE [id number] CEFDINIR Inactive PREDNISONE 20 MG ORAL TABLET 2 tabs daily for 3 days, 1 tab daily for 3 days, 1/2 tab daily for 2 days PREDNISONE 20 MG ORAL T [facility] [id number] PREDNISONE Inactive AVELOX 400 MG ORAL TABLET [...] days 11/07 PREDNISONE 20 MG ORAL TABLET 199111 PREDNISONE Inactive LEVAQUIN 500 MG ORAL TABLET take one po QD LEVAQUIN 500 MG ORAL TABLET 460375 LEVOFLOXACIN Inactive AZITHROMYCIN 250 MG ORAL TABLET 2 po qd x 1 day, then 1 po q d x 4 days AZITHROMYCIN 250 MG ORAL TABLET 675469 AZITHROMY GIOVANNI Inactive MEDROL 4 MG ORAL TABLET THERAPY PACK 6 tabs on day 1, 5 tabs on day 2, 4 tabs on day 3, 3 tabs on day 4, 2 tabs on day 5, 1 tab on day 6 2013 MEDROL 4 MG ORAL TABLET THERAPY PACK 816029 METHYLPREDNISOLONE [place] CHERATUSSIN AC 100-10 MG/5ML ORAL SYRUP 5ml po q6hr PRN Cough 20 13/04/14 CHERATUSSIN AC 100-10 MG/5ML ORAL SYRUP 840238 GUAIFENE SIN-CODEINE Inactive TRIAMCINOLONE ACETONIDE 0.1 % EXTERNAL CREAM apply three roger es daily prn rash TRIAMCINOLONE ACETONIDE 0.1 % EXTERNAL CREAM 101 4314 TRIAMCINOLONE ACETONIDE Inactive AZITHROMYCIN 250 MG ORAL TABLET 2 po qd x 1 day, then 1 po q d x 4 days AZITHROMYCIN 250 MG ORAL TABLET 726472 AZITHROMY GIOVANNI Inactive MEDROL 4 MG ORAL TABLET THERAPY PACK 6 pills x 1 day, then 5 pills x 1 day then 4 pills x 1 day, then 3 pills x 1 day, then 2 pills x 1 day, then 1 pill x 1 day, then stop MEDROL 4 MG ORAL TABLET THERAPY PACK 544557 METHYLPREDNISOLONE Inactive AMOXICILLIN 500 MG ORAL CAPSULE 1 tab by mouth 3 times daily x 10 days AMOXICILLIN 500 MG ORAL CAPSULE 098624 AMOXICILL IN Inactive AMOXICILLIN 500 MG ORAL CAPSULE 1 tab by mouth 3 times daily x 10 days AMOXICILLIN 500 MG ORAL CAPSULE 745468 AMOXICILL IN Inactive ZITHROMAX 250 MG ORAL TABLET 2 po today, then 1 po q days 2-5 20 12/08/14 ZITHROMAX 250 MG ORAL TABLET 892605 AZITHROMYCIN [place] AUGMENTIN 875-125 MG ORAL TABLET 1 po BID x 10 days 20 13/01/20 AUGMENTIN 875-125 MG ORAL TABLET AMOXICILLIN-POT CLAVULANATE Inactive ZITHROMAX Z-REYNA 250 MG ORAL TABLET 2 today, then 1 daily for 4 d ays ZITHROMAX Z-REYNA 250 MG ORAL TABLET 215713 AZITHROMYCIN Inactive ZITHROMAX 250 MG ORAL TABLET 2 po today, then 1 po q days 2-5 20 14/03/21 ZITHROMAX 250 MG ORAL TABLET 092554 AZITHROMYCIN [place] [facility] ZITHROMAX Z-REYNA 250 MG ORAL TABLET 2 today, then 1 daily for 4 d ays ZITHROMAX Z-REYNA 250 MG ORAL TABLET 651666 AZITHROMYCIN Inactive CEFDINIR 300 MG ORAL CAPSULE 1 po BID x 10 days 06/21 CEFDINIR 300 MG ORAL CAPSULE 144018 CEFDINIR Inactive ZITHROMAX 250 MG ORAL TABLET 2 po today, then 1 po q days 2-5 20 13/08/10 ZITHROMAX 250 MG ORAL TABLET 659617 AZITHROMYCIN [place] [facility] LEVAQUIN 500 MG ORAL TABLET 1 tablet by mouth daily 20 13/09/24 LEVAQUIN 500 MG ORAL TABLET 19971102 LEVOFLOXACIN Inactive SINGULAIR 10 MG ORAL TABLET 1 po qday for allergies 20 14/01/12 SINGULAIR 10 MG ORAL TABLET 20010504 MONTELUKAST SODIUM Inactive AMOXICILLIN 500 MG ORAL CAPSULE 2 po BID x 10 days 201 09/29/08 AMOXICILLIN 500 MG ORAL CAPSULE 500920 AMOXICILLIN Inactive PREDNISONE 20 MG ORAL TABLET 2 tabs daily for 3 days, 1 tab daily for 3 days, 1/2 tab daily for 2 days PREDNISONE 20 MG ORAL T ABLET 937218 PREDNISONE Inactive ZITHROMAX Z-REYNA 250 MG ORAL TABLET 2 today, then 1 daily for 4 d ays ZITHROMAX Z-RYENA 250 MG ORAL TABLET 562273 AZITHROMYCIN Inactive PREDNISONE 20 MG ORAL TABLET 2 tabs daily for 3 days, 1 tab daily for 3 days, 1/2 tab daily for 2 days PREDNISONE 20 MG ORAL T ABLET 995230 PREDNISONE Inactive ZITHROMAX 250 MG ORAL TABLET 2 po today, then 1 po q days 2-5 20 14/09/04 ZITHROMAX 250 MG ORAL TABLET 321233 AZITHROMYCIN [place] [facility] AMOXICILLIN 500 MG ORAL CAPSULE 1 cap by mouth three times a day AMOXICILLIN 500 MG ORAL CAPSULE 901463 AMOXICILLIN Inactive TERBINAFINE HCL 250 MG ORAL TABLET 1 qDay for nail fungus 7 TERBINAFINE HCL 250 MG ORAL TABLET 704554 TERBINAFINE HCL Inact nael AUGMENTIN 875-125 MG ORAL TABLET 1 po BID x 10 days 20 16/03/22 AUGMENTIN 875-125 MG ORAL TABLET AMOXICILLIN-POT CLAVULANATE Inactive PREDNISONE 20 MG ORAL TABLET 2 po qd x 5 days PREDNISONE 20 MG ORAL TABLET 755630 PREDNISONE Inactive AZITHROMYCIN 250 MG ORAL TABLET 2 po qd x 1 day, then 1 po q d x 4 days AZITHROMYCIN 250 MG ORAL TABLET 365195 AZITHROMY GIOVANNI Inactive PREDNISONE 50 MG ORAL TABLET Take 50 mg dialy for 6 day s 7 PREDNISONE 50 MG ORAL TABLET 247358 PREDNISONE Inactive AUGMENTIN 875-125 MG ORAL TABLET 1 po BID x 10 days 20 18/04/16 AUGMENTIN 875-125 MG ORAL TABLET AMOXICILLIN-POT CLAVULANATE Inactive DOXYCYCLINE HYCLATE 100 MG ORAL CAPSULE 1 cap by mouth twice latasha ly DOXYCYCLINE HYCLATE 100 MG ORAL CAPSULE 6157271 DOXYCYCL INE HYCLATE Inactive PREDNISONE 20 MG ORAL TABLET Take 2 tabs day 1 and 2 and 1 t ab days 3 and 4 PREDNISONE 20 MG ORAL TABLET 151541 PREDNISONE Inactive AMOXICILLIN 500 MG ORAL CAPSULE 1 cap by mouth twice daily 10/21 AMOXICILLIN 500 MG ORAL CAPSULE 730026 AMOXICILLIN Inactive TRIAMCINOLONE ACETONIDE 0.1 % EXTERNAL OINTMENT Apply to affected areas TID PRN Rash/Itching for up 2 weeks TRIAMCINOLON E ACETONIDE 0.1 % EXTERNAL OINTMENT 1618571 TRIAMCINOLONE ACETONIDE Inactive ACYCLOVIR 800 MG ORAL TABLET 1 po 5 times daily x 7 days ACYCLOVIR 800 MG ORAL TABLET 614413 ACYCLOVIR Inactive Vital Signs Date Name Value [...] - Chem istry sodium, serum 139 mmol/L 905-376 8394/10/12 potassium, serum 3.8 mmol/L 3.5-5.2 chloride, serum [...] negative Encounters Code Encounter Date Provider Facility CPT-57076 Level 3 Est. Patient 14:16:41 CDT David Tin dle [facility] CPT-55299 Level 3 Est. Patient 13:57:55 CDT David Tin dle [facility] CPT-39889 Level 3 Est. Patient 16:08:07 CDT David Tin dle [facility] CPT-07406 Level 3 Est. Patient 16:53:54 CDT J Livan haas MD [facility]-50103 [id number] Vst-Est Level IV 08:41:[address] Carlton Hu MD [facility] CPT-77901 Level 3 Est. Patient 09:46:49 TRIMMER OPERATOR David riverae [facility] CPT-07945 [id number] Vst-Est Level III 11:12:16 CDT Yanet Bess DO [facility] CPT-75323 Level 3 Est. Patient 11:34:49 TRIMMER OPERATOR Perez Mora MD [facility] CPT-75264 Level 4 Est. Patient 09:51:32 TRIMMER OPERATOR Carlton rich MD [facility] CPT-38300 Level 3 Est. Patient 10:26:00 TRIMMER OPERATOR Elise stephenson [facility] CPT-51186 Level 3 Est. Patient 13:35:41 TRIMMER OPERATOR Carlton rich MD [facility] CPT-13446 Level 3 Est. Patient 10:03:52 TRIMMER OPERATOR Carlton rich MD [facility] CPT-62010 Level 3 Est. Patient 12:17:50 CDT Hugo Restrepo MD [facility] CPT-69753 Level 3 Est. Patient 13:42:38 CDT Elise Are ll [facility] CPT-32448 Level 3 Est. Patient 13:23:51 CDT Diya Mariana mango [facility] CPT-82966 Level 3 Est. Patient 14:22:19 TRIMMER OPERATOR Diya cobian [facility] CPT-00000 Level 3 Est. Patient 10:11:46 CDT Carlton rich MD [facility] CPT-82378 Level 3 Est. Patient 17:29:43 CDT Elise Are ll [facility] CPT-24419 Level 3 Est. Patient 11:58:06 CDT Elise Are [facility] CPT-27938 Level 4 Est. Patient 14:36:51 CDT Carlton rich MD [facility] CPT-18227 Level 3 Est. Patient 18:16:00 TRIMMER OPERATOR Blaine HERNANDEZ [facility] CPT-41482 Level 3 Est. Patient 09:45:49 TRIMMER OPERATOR Carlton rich MD [facility] CPT-62271 Level 3 Est. Patient 13:19:20 CDT Carlton rich MD [facility] CPT-33003 Level 3 Est. Patient 13:06:43 CDT Ridge tam DO [facility] CPT-32697 Level 3 Est. Patient 10:03:07 CDT Perez Mora MD [facility] CPT-56379 Level 3 Est. Patient 19:50:35 TRIMMER OPERATOR Carlton rich MD [facility] CPT-91913 Level 4 Est. Patient 18:05:01 TRIMMER OPERATOR Carlton rich MD [facility]-50005 Level 3 Est. Patient 10:45:55 TRIMMER OPERATOR Hugo Restrepo MD [facility]-07904 Level 3 Est. Patient 14:12:49 CDT Griffin HERNANDEZ [facility]-89060 Level 3 Est. Patient 17:37:24 CDT Carlton rich MD [facility]-41221 Level 3 Est. Patient 16:51:54 CDT Carlton rich MD [facility]-23257 Level 3 Est. Patient 12:18:11 CDT Hugo Restrepo MD [facility]-22107 Level 3 Est. Patient 11:30:25 CDT Marcy crisostomo MD PhD [facility]-75079 Level 3 Est. Patient 12:00:47 TRIMMER OPERATOR Carlton rich MD [facility]-47175 Level 3 Est. Patient 16:31:06 TRIMMER OPERATOR Carlton rich MD [facility]-60815 Level 3 Est. Patient 16:23:24 TRIMMER OPERATOR Ridge tam DO [facility]-62698 Level 3 Est. Patient 12:34:12 CDT Carlton rich MD [facility]-33143 Level 2 Est. Patient 15:43:33 CDT Robi armstrong MD [facility]-53385 Level 4 Est. Patient 14:04:44 CDT Carlton rich MD [facility]-27961 Level 3 Est. Patient 05:47:59 CDT Ridge tam [facility]-18568 Level 3 Est. Patient 13:12:53 TRIMMER OPERATOR Carlton rich MD [facility] CPT-19722 Level 3 Est. Patient 14:26:53 CDT Hugo Restrepo MD [facility] Procedures Code Procedure Name Date Entry Date Standard Desc ription CPT-000 Give Appropriate Flu Vaccine 14:14:31 CDT 2 CPT-J1040 Depo Medrol 80 mg (Methyl Prednisolone A cetate) 10:42:44 CDT CPT-J1100 Decadron 8mg (Dexamethasone) 10:42:44 CDT 2 CPT-J0696 Rocephin 1gm Inj Solr 14:32:13 CDT CPT-J1020 Depo Medrol 60 mg (Methyl Prednisolone A cetate) 14:32:13 CDT CPT-J1100 Decadron 6mg (Dexamethasone) 14:32:13 CDT 2 CPT-75731 Hip bilat min 2V w AP pelvis 13:16:20 CDT 2 CPT-74325 Pelvis only 13:07:33 CDT CPT-33665 Spec Collection and Handling Fee 11:25:12 C DT CPT-82982 Fluzone Quadrivalent Intramuscular Suspe nsion 0.5 ML 14:31:55 CDT CPT-95507 Abx/Therapy Injection 13:28:47 TRIMMER OPERATOR CPT-J2930 Solu Medrol 125 mg (Methyl Prednisolone Sodium Succinate) 12:00:47 TRIMMER OPERATOR CPT-54993 Venipuncture Draw Fee 11:33:31 CDT CPT-40186 EKG Trac and Interp 11:21:09 CDT CPT-01091 Chest 2V Frontal and Lat 11:21:09 CDT 12/15 CPT-83419 Venipuncture Draw Fee 08:02:34 CDT CPT-92676 Chest 2V Frontal and Lat 05:47:59 CDT 06/05
--- OUTSIDE RECORDS SUMMARY | 2019-10-08 10:05 | XMS REPORT | Clinical Summary ---
Author Author Caitlin, Juliana Martinez Organization [facility] Address Unknown Phone Unavailable Allergies, Adverse Reactions, [...] 35.0-35.9, adult BMI 35-35.9 Refinement David Marianne BLANKER PRESS OPERATOR Body Mass Index 35.0-35.9, adult BMI 33-33.9 Active David Marianne BLANKER PRESS OPERATOR Body Mass Index 35.0-35.9, adult Upper [...] nonspecific skin eruption 782.1 Active David Marianne BLANKER PRESS OPERATOR Rash and other nonspecific skin eruption Pharyngitis, acute / sore throat 462 Active 201 12/06/23 David Marianne BLANKER PRESS OPERATOR Acute pharyngitis Shingles 053.9 Active David Marianne BLANKER PRESS OPERATOR Herpes zoster without mention of complication BRONCHITIS [...] SINUSITIS, ACUTE ICD-461.9 Inactive Hugo dominguez MD Bronchitis ICD-490 Inactive Hugo Restrepo MD 201 10/02/29 URI ICD-465.9 Inactive Ridge Bess DO Rhinitis, acute ICD-460 Inactive Hugo Ochoa MD Sinusitis ICD-473.9 Inactive Hugo Restrepo MD Medication List Medication Instructions Start Date Stop Date Generic Name NDC Status Provider Patient Instruction TYLENOL WITH CODEINE #3 300-30 MG ORAL TABLET ACETAMINOPHEN-CODEINE 44478987220 Active David Marianne BLANKER PRESS OPERATOR A ctive TRIAMCINOLONE ACETONIDE 0.1 % EXTERNAL CREAM apply bid spari ngly to rash TRIAMCINOLONE ACETONIDE 52334680901 Active David Marianne BLANKER PRESS 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 TYLENOL WITH CODEINE #3 300-30 MG ORAL TABLET 1-2 po q6hr PRN Pa in ACETAMINOPHEN-CODEINE 88481283228 No Longer Active David Marianne AP RN Active ACYCLOVIR 800 MG ORAL TABLET 1 po 5 times daily x 7 days ACYCLOVIR 98428811100 No Longer Active David Marianne BLANKER PRESS 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 TOPAMAX 100 MG ORAL TABLET 1 by mouth twice daily TOPIRAMATE 92173727908 Active Columba Raida Active TRIAMCINOLONE ACETONIDE 0.1 % EXTERNAL OINTMENT Apply to affected areas TID PRN Rash/Itching for up 2 weeks TRIAMCINOLONE ACETON KAYLA 82928796133 No Longer Active David Marianne BLANKER PRESS 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 AMOXICILLIN 500 MG ORAL CAPSULE 1 cap by mouth twice daily 10/21 AMOXICILLIN 94077633144 No Longer Active David Marianne BLANKER PRESS 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 ELMIRON 100 MG ORAL CAPSULE 2 capsules in the morning and 1 capsule at night PENTOSAN POLYSULFATE SODIUM 78775672818 Active Cinthia H art SENIOR ADVOCATE Active CYMBALTA 30 MG ORAL CAPSULE DELAYED RELEASE PARTICLES 1 cap by mouth daily for depression DULOXETINE HCL 62110595315 No Longer Active Carlton Hu MD Active CYMBALTA 60 MG ORAL CAPSULE DELAYED RELEASE PARTICLES 1 cap by mouth daily for mood and pain DULOXETINE HCL 45043085263 Active Carlton Hu MD Active TUSSIONEX PENNKINETIC ER 10-8 MG/5ML ORAL SUSPENSION E XTENDED RELEASE 5ml po q12hr PRN Cough HYDROCOD POLST-CHLORPHEN POLST 49177159031 Active David Marianne BLANKER PRESS 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 PREDNISONE 20 MG ORAL TABLET Take 2 tabs day 1 and 2 and 1 t ab days 3 and 4 PREDNISONE 27281873767 No Longer Active David Marianne BLANKER PRESS 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 DOXYCYCLINE HYCLATE 100 MG ORAL CAPSULE 1 cap by mouth twice latasha ly DOXYCYCLINE HYCLATE 63984045374 No Longer Active David Marianne BLANKER PRESS 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 TOPAMAX 100 MG ORAL TABLET Take 1 tablet po bid TOPIRAMATE 38715259136 No Longer Active David Marianne BLANKER PRESS 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 TUSSIONEX PENNKINETIC ER 10-8 MG/5ML ORAL SUSPENSION E XTENDED RELEASE 5ml po q12hr PRN Cough HYDROCOD POLST-CHLORPHEN POLST 5 7517124110 No Longer Active David Marianne BLANKER PRESS 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 AUGMENTIN 875-125 MG ORAL TABLET 1 po BID x 10 days 18/04/16 AMOXICILLIN-POT CLAVULANATE 88837434205 No Longer Active David Marianne BLANKER PRESS 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 PREDNISONE 50 MG ORAL TABLET Take 50 mg dialy for 6 day s 7 PREDNISONE 44818450377 No Longer Active David Marianne BLANKER PRESS 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 TUSSIONEX PENNKINETIC ER 10-8 MG/5ML ORAL SUSPENSION E XTENDED RELEASE 5ml po q12hr PRN Cough HYDROCOD POLST-CHLORPHEN POLST 5 9858541244 No Longer Active Cherelle Torres RN Active PREDNISONE 20 MG ORAL TABLET two tabs by mouth today, then one tab by mouth days two and three and four PREDNISONE 42578572209 No Lo nger Active Cherelle Torres RN Active AZITHROMYCIN 250 MG ORAL TABLET 2 po qd x 1 day, then 1 po q d x 4 days AZITHROMYCIN 58256385562 No Longer Active Ridge Bess DO Active PREDNISONE 20 MG ORAL TABLET 2 po qd x 5 days P REDNISONE 13525247889 No Longer Active Perez Mora MD Active PROAIR HFA 108 (90 BASE) MCG/ACT INHALATION AEROSOL SO LUTION 2 puffs four times a day as needed ALBUTEROL SULFATE 04069358646 No Long er Active Becky FUENTES Active ASPIRIN 81 MG ORAL TABLET 1 po qd ASPIRIN 65885256403 Active Carlton Hu MD Active PREDNISONE 20 MG ORAL TABLET 1 tab twice daily for 3 d ay, then one daily for three days PREDNISONE 17471134033 No Longer Active Carlton Hu MD Active AUGMENTIN 875-125 MG ORAL TABLET 1 po BID x 10 days 20 16/03/22 AMOXICILLIN-POT CLAVULANATE 21814722572 No Longer Active Elise Garcia APRN Active TERBINAFINE HCL 250 MG ORAL TABLET 1 qDay for nail fungus 7 TERBINAFINE HCL 23462439658 No Longer Active Carlton Hu MD A ctive AMOXICILLIN 500 MG ORAL CAPSULE 1 cap by mouth three times a day AMOXICILLIN 89539389340 No Longer Active Carlton Hu MD Active ELMIRON 100 MG ORAL CAPSULE 2 tablets in the am and 1 tablet at hs PENTOSAN POLYSULFATE SODIUM 30503812438 No Longer Active Robert Hu MD Active MUCINEX D 60-600 MG ORAL TABLET EXTENDED RELEASE 12 HOUR 1 t ab po q am PSEUDOEPHEDRINE-GUAIFENESIN 81239782262 No Longer Act nael Carlton Hu MD Active MUCINEX DM MAXIMUM STRENGTH 60-1200 MG ORAL TABLET EXT ENDED RELEASE 12 HOUR 1 tab po q am DEXTROMETHORPHAN-GUAIFENESIN 14394704895 No Longer Active Carlton Hu MD Active TUSSIONEX PENNKINETIC ER 10-8 MG/5ML ORAL SUSPENSION E XTENDED RELEASE 5ml po q12hr PRN Cough HYDROCOD POLST-CHLORPHEN POLST 5 2018270468 No Longer Active Carlton Hu MD Active POTASSIUM CHLORIDE ER 20 MEQ ORAL TABLET EXTENDED RELE ASE Take 1 by mouth 4 times daily for 7 days POTASSIUM CHLORIDE 71994373359 No Longer Active Carlton Hu MD Active ZITHROMAX 250 MG ORAL TABLET 2 po today, then 1 po q days 2-5 20 14/09/04 AZITHROMYCIN 02953930482 No Longer Active Elise Garcia BLANKER PRESS 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 TUSSIONEX PENNKINETIC ER 10-8 MG/5ML ORAL SUSPENSION E XTENDED RELEASE 5 ml twice a day as needed for cough HYDROCOD POLST-CHLORPH EN POLST 81488141929 No Longer Active Elise Garcia APRN Active MONTELUKAST SODIUM 10 MG ORAL TABLET 1 po daily for Allergy MONTELUKAST SODIUM 43091073136 Active Carlton Hu MD Ac tive TUSSIONEX PENNKINETIC ER 10-8 MG/5ML ORAL SUSPENSION E XTENDED RELEASE 5ml po q12hr PRN Cough HYDROCOD POLST-CHLORPHEN POLST 5 8062828354 No Longer Active Hugo Restrepo MD Active GABAPENTIN 100 MG ORAL CAPSULE 1 po BID for fibromyalgia GABAPENTIN 09306003725 Active ALFREDO Holly Active LYRICA 100 MG ORAL CAPSULE Take 1 tab po BID for fibromyalgia 20 11/08/21 PREGABALIN 78493670093 No Longer Active Elise Garcia APRN A ctive PREDNISONE 20 MG ORAL TABLET 2 tabs daily for 3 days, 1 tab daily for 3 days, 1/2 tab daily for 2 days PREDNISONE 35024288553 No Longer Active Diya De Guzman APRN Active TUSSIONEX PENNKINETIC ER 10-8 MG/5ML ORAL SUSPENSION E XTENDED RELEASE 5 mL PO q 12 hrs PRN cough HYDROCOD POLST-CHLORPHEN POLST 142836 53574 No Longer Active Diya Guerrerol BLANKER PRESS 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 FLUTICASONE PROPIONATE 50 MCG/ACT NASAL SUSPENSION 2 s prays each nostril daily until bottle is empty FLUTICASONE PROPIONATE 883341822 99 No Longer Active Jillina Frakerriel BLANKER PRESS 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 ASMANEX 60 METERED DOSES 220 MCG/INH INHALATION AEROSO L POWDER BREATH ACTIVATED 1 puff bid with rinse after MOMETASONE FUROATE 2207875 4102 No Longer Active Venullina Cesarl BLANKER PRESS 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 ZITHROMAX Z-REYNA 250 MG ORAL TABLET 2 today, then 1 daily for 4 d ays AZITHROMYCIN 58644513486 No Longer Active Elise Garcia APRN Active TUSSIONEX PENNKINETIC ER 10-8 MG/5ML ORAL SUSPENSION E XTENDED RELEASE 5ml po q12hr PRN Cough HYDROCOD POLST-CHLORPHEN POLST 5 7493194630 No Longer Active Elise Garcia APRN Active PREDNISONE 20 MG ORAL TABLET 2 tabs daily for 3 days, 1 tab daily for 3 days, 1/2 tab daily for 2 days PREDNISONE 29483111225 No Longer Active Diya De Guzman APRN Active AMOXICILLIN 500 MG ORAL CAPSULE 2 po BID x 10 days 201 09/29/08 AMOXICILLIN 95315201970 No Longer Active Diya De Guzman APRN Act nael SINGULAIR 10 MG ORAL TABLET 1 po qday for allergies 20 14/01/12 MONTELUKAST SODIUM 75040266515 No Longer Active Carlton Hu MD Active LEVAQUIN 500 MG ORAL TABLET 1 tablet by mouth daily 20 13/09/24 LEVOFLOXACIN 99688452145 No Longer Active Carlton Hu MD Acti ve FLUTICASONE PROPIONATE 50 MCG/ACT NASAL SUSPENSION 2 s prays each nostril daily for 2 weeks, then 1 spray each nostril daily. FLUTICASONE PROPIONATE 78968159053 Active Carlton Hu MD Active ZITHROMAX 250 MG ORAL TABLET 2 po today, then 1 po q days 2-5 20 13/08/10 AZITHROMYCIN 80439447853 No Longer Active Elise Garcia APRN Active XANAX 0.5 MG ORAL TABLET one tablet by mouth daily prn anxiety 2015 ALPRAZOLAM 92011408860 Active ALFREDO Holly Active CEFDINIR 300 MG ORAL CAPSULE 1 po BID x 10 days CEFDINIR 48782993687 No Longer Active Carlton Hu MD Active ZOCOR 40 MG ORAL TABLET 1 tab by mouth daily SI MVASTATIN 22891269545 No Longer Active Carlton Hu MD Active CYCLOBENZAPRINE HCL 10 MG ORAL TABLET 1 tablet by mouth BID prn had pain CYCLOBENZAPRINE HCL 11473435367 No Longer Active Jayden Hu MD Active LEVOFLOXACIN 500 MG ORAL TABLET 1 tab PO daily x 10 days LEVOFLOXACIN 85222324922 No Longer Active Carlton Hu MD Acti ve PREDNISONE 20 MG ORAL TABLET 3 tab PO qd x 2d, 2 tab P O qd x 2d, 1 tab PO qd x 2d, 1/2 tab PO qd x 2d PREDNISONE 89464720599 No Lo nger Active Carlton Hu MD Active FLUTICASONE PROPIONATE 50 MCG/ACT NASAL SUSPENSION 1 t o 2 sprays each nostril daily FLUTICASONE PROPIONATE 15984360752 No Longer Ac tive Blaine HERNANDEZ Active CHERATUSSIN AC 100-10 MG/5ML ORAL SYRUP 1 tsp by mouth every 4 hours as needed for cough GUAIFENESIN-CODEINE 79960906506 No Longe r Active Blaine HERNANDEZ Active PROMETHAZINE-CODEINE 6.25-10 MG/5ML ORAL SYRUP 1 tsp b y mouth every 6 hours if needed for cough PROMETHAZINE-CODEINE 99352079824 No Longer Active Blaine HERNANDEZ Active CHERATUSSIN AC 100-10 MG/5ML ORAL SYRUP 1 tsp by mouth every 4 hours as needed for cough GUAIFENESIN-CODEINE 01053853731 No Longe r Active Blaine HERNANDEZ Active ZITHROMAX Z-REYNA 250 MG ORAL TABLET 2 today, then 1 daily for 4 d ays AZITHROMYCIN 30910702073 No Longer Active Columba Raida Act nael ZITHROMAX 250 MG ORAL TABLET 2 po today, then 1 po q days 2-5 20 14/03/21 AZITHROMYCIN 93682568881 No Longer Active Carlton Hu MD Active ZITHROMAX Z-REYNA 250 MG ORAL TABLET 2 today, then 1 daily for 4 d ays AZITHROMYCIN 25087589356 No Longer Active Columba Raida Act nael AUGMENTIN 875-125 MG ORAL TABLET 1 po BID x 10 days 13/01/20 AMOXICILLIN-POT CLAVULANATE 44460521869 No Longer Active Diya De Guzman APRN Active ZITHROMAX 250 MG ORAL TABLET 2 po today, then 1 po q days 2-5 20 12/08/14 AZITHROMYCIN 10894399542 No Longer Active Carlton Hu MD Active TRAMADOL HCL 50 MG ORAL TABLET 1 po tid with ES Tylenol TRAMADOL HCL 17758230251 Active Carlton Hu MD Active PREMARIN 0.625 MG ORAL TABLET TAKE 1 TAB BY MOUTH DAILY ESTROGENS CONJUGATED 78154111890 No Longer Active Ridge Bess DO A ctive CYMBALTA 30 MG ORAL CAPSULE DELAYED RELEASE PARTICLES 1 cap by mouth daily DULOXETINE HCL 77766887249 No Longer Active Ridge tam DO Active AMOXICILLIN 500 MG ORAL CAPSULE 1 tab by mouth 3 times daily x 10 days AMOXICILLIN 96774969966 No Longer Active Carlton bustamante MD Active AMOXICILLIN 500 MG ORAL CAPSULE 1 tab by mouth 3 times daily x 10 days AMOXICILLIN 25998334253 No Longer Active Carlton bustamante MD Active PROMETHAZINE-CODEINE 6.25-10 MG/5ML ORAL SYRUP 1 tsp b y mouth every 8 hours prn cough PROMETHAZINE-CODEINE 66886299951 No Longer Acti ve Carlton Hu MD Active MEDROL 4 MG ORAL TABLET THERAPY PACK 6 pills x 1 day, then 5 pills x 1 day then 4 pills x 1 day, then 3 pills x 1 day, then 2 pills x 1 day, then 1 pill x 1 day, then stop METHYLPREDNISOLONE 13863037396 No Long er Active Perez Mora MD Active AZITHROMYCIN 250 MG ORAL TABLET 2 po qd x 1 day, then 1 po q d x 4 days AZITHROMYCIN 75690520874 No Longer Active Perez Ambriz MD Active SYMBICORT 160-4.5 MCG/ACT INHALATION AEROSOL 2 puffs bid wit h rinse after BUDESONIDE-FORMOTEROL FUMARATE 07673638878 N o Longer Active Perez Mora MD Active LYRICA 75 MG ORAL CAPSULE TAKE 1 CAPSULE BY MOUTH TWICE DAILY PREGABALIN 47015870192 No Longer Active Carlton Hu MD Acti ve TOPAMAX 25 MG ORAL TABLET 1 qHS x 1 week, then 1 BID x 1 week, then 1 qAM and 2 qHS x 1 week, then 2 BID (migraine prevention) T OPIRAMATE 86036611514 No Longer Active Jerica FUENTES Active TOPAMAX 50 MG ORAL TABLET take 1 tab po BID for migraines. 07/02 TOPIRAMATE 14116565659 No Longer Active Jerica FUENTES Active TRIAMCINOLONE ACETONIDE 0.1 % EXTERNAL CREAM apply three roger es daily prn rash TRIAMCINOLONE ACETONIDE 16143208254 No Longer Active Carlton Hu MD Active PAXIL 40 MG ORAL TABLET take 1 tab po qday for depression 0 PAROXETINE HCL 83549548584 Active Carlton Hu MD Active CHERATUSSIN AC 100-10 MG/5ML ORAL SYRUP 5ml po q6hr PRN Cough 20 13/04/14 GUAIFENESIN-CODEINE 73383007850 No Longer Active Carlton Hu MD Active MEDROL 4 MG ORAL TABLET THERAPY PACK 6 tabs on day 1, 5 tabs on day 2, 4 tabs on day 3, 3 tabs on day 4, 2 tabs on day 5, 1 tab on day 6 2013 METHYLPREDNISOLONE 62356324064 No Longer Active Perez Mora MD Active AZITHROMYCIN 250 MG ORAL TABLET 2 po qd x 1 day, then 1 po q d x 4 days AZITHROMYCIN 18287794342 No Longer Active Perez Ambriz MD Active PROPRANOLOL HCL 60 MG ORAL TABLET 1 PO Q D PROPRANOLOL HCL 18483905550 No Longer Active Perez Mora MD Activ e CHERATUSSIN AC 100-10 MG/5ML ORAL SYRUP take one tsp po Q 6h ours prn cough GUAIFENESIN-CODEINE 51225273996 No Longer Active Zia Mora MD Active AUGMENTIN 875-125 MG ORAL TABLET 1 tab by mouth twice daily with food AMOXICILLIN-POT CLAVULANATE 77578036688 No Longer Act nael Perez Mora MD Active CHERATUSSIN AC 100-10 MG/5ML ORAL SYRUP 1 tsp by mouth every 4 hours as needed for cough GUAIFENESIN-CODEINE 78823161170 No Longe r Active Hugo Restrepo MD Active ACETAMINOPHEN-CODEINE #3 300-30 MG ORAL TABLET 1 PO Q 4-6 HRS AR N PAIN ACETAMINOPHEN-CODEINE 02044907515 No Longer Active Hugo Restrepo MD Active LEVAQUIN 500 MG ORAL TABLET take one po QD LEVO FLOXACIN 62719268452 No Longer Active Griffin HERNANDEZ Active PREDNISONE 20 MG ORAL TABLET Take 3 tabs daily for 3 d ays, 2 tabs daily for 3 days, 1 tab daily for 3 days, 1/2 tab daily for 3 days 11/07 PREDNISONE 33911174523 No Longer Active Carlton Hu MD Acti ve AVELOX 400 MG ORAL TABLET 1 tab by mouth daily MOXIFLOXACIN HCL 73288901027 No Longer Active Carlton Hu MD Active CHERATUSSIN AC 100-10 MG/5ML ORAL SYRUP 1 tsp by mouth every 4 hours as needed for cough GUAIFENESIN-CODEINE 34669991865 No Longe r Active Hugo Restrepo MD Active AVELOX 400 MG ORAL TABLET 1 tab by mouth daily MOXIFLOXACIN HCL 47663088760 No Longer Active Marcy De La Rosa MD PhD Active TERBINAFINE HCL 250 MG ORAL TABLET 1 qDay T ERBINAFINE HCL 55466962647 No Longer Active Marcy De La Rosa MD PhD Active CHERATUSSIN AC 100-10 MG/5ML ORAL SYRUP 1 tsp by mouth every 4 hours as needed for cough GUAIFENESIN-CODEINE 99729024173 No Longe r Active Marcy De La Rosa MD PhD Active AVELOX 400 MG ORAL TABLET 1 tab by mouth daily MOXIFLOXACIN HCL 31308483722 No Longer Active Marcy De La Rosa MD PhD Active HYDROCODONE-ACETAMINOPHEN 5-325 MG ORAL TABLET 1 po q 6hr PRN co ugh HYDROCODONE-ACETAMINOPHEN 32844221543 No Longer Active Marcy De La Rosa MD PhD Active PREDNISONE 20 MG ORAL TABLET 2 tabs daily for 3 days, 1 tab daily for 3 days, 1/2 tab daily for 2 days PREDNISONE 33277941440 No Longer Active Carlton Hu MD Active CEFDINIR 300 MG ORAL CAPSULE by mouth twice a day 2011 CEFDINIR 33521298285 No Longer Active Carlton Hu MD Acti ve HYDROCHLOROTHIAZIDE 25 MG ORAL TABLET 1 TAB PO DAILY HYDROCHLOROTHIAZIDE 60539082615 Active Carlton Hu MD A ctive ACETAMINOPHEN-CODEINE #3 300-30 MG ORAL TABLET 1 tablet po q 4-6 hrs prn pain ACETAMINOPHEN-CODEINE 35196889249 No Longer Active Ridge Bess DO Active ZITHROMAX 250 MG ORAL TABLET 2 po today, then 1 po q days 2-5 20 03/07/07 AZITHROMYCIN 56499149316 No Longer Active Carlton Hu MD Active CHERATUSSIN AC 100-10 MG/5ML ORAL SYRUP take 1 tsp po q4-6 h ours prn cough GUAIFENESIN-CODEINE 28075596906 No Longer Active Jayden Hu MD Active ACETAMINOPHEN-CODEINE #3 300-30 MG ORAL TABLET 1 PO Q 4-6 HR PRN PAIN ACETAMINOPHEN-CODEINE 04281249931 No Longer Active Da raimundo Hu MD Active LORTAB 7.5-500 MG/15ML ORAL ELIXIR 7.5 ml po q 4 hour prn cough HYDROCODONE-ACETAMINOPHEN 08381953620 No Longer Active Carlton Hu MD Active PREDNISONE 20 MG ORAL TABLET 1 po bid 3 days, then 1 po q day 3 days PREDNISONE 22555108660 No Longer Active Carlton Hu MD Active CEFDINIR 300 MG ORAL CAPSULE by mouth twice a day 2011 CEFDINIR 25093273958 No Longer Active Carlton Hu MD Acti ve CEFDINIR 300 MG ORAL CAPSULE by mouth twice a day 2010 CEFDINIR 29698269151 No Longer Active Carlton Hu MD Acti ve CEFDINIR 300 MG ORAL CAPSULE by mouth twice a day 2010 CEFDINIR 55272008716 No Longer Active Carlton Hu MD Acti ve TESSALON PERLES 100 MG ORAL CAPSULE 1 tablet by mouth 3 times daily as needed for cough BENZONATATE 80838669003 No Longer Active Carlton Hu MD Active CEFDINIR 300 MG ORAL CAPSULE by mouth twice a day 2010 CEFDINIR 06078056349 No Longer Active Carlton Hu MD Acti ve ZITHROMAX Z-REYNA 250 MG ORAL TABLET 2 today, then 1 daily for 4 d ays AZITHROMYCIN 27830910557 No Longer Active Hugo Restrepo MD Active TESSALON PERLES 100 MG ORAL CAPSULE 1 tablet by mouth 3 times daily as needed for cough TESSALON PERLES 100 MG ORAL CAPSULE 85015 7 BENZONATATE Inactive PREDNISONE 20 MG ORAL TABLET 1 po bid 3 days, then 1 po q day 3 days PREDNISONE 20 MG ORAL TABLET 799349 PREDNISONE Greer ctive LORTAB 7.5-500 MG/15ML ORAL [...] cough CHERATUSSIN AC 100-10 MG/5ML ORAL SYRUP 983657 GUAIFENESIN-CODEINE Inactive ACETAMINOPHEN-CODEINE #3 300-30 MG ORAL TABLET 1 tablet po q 4-6 hrs prn pain ACETAMINOPHEN-CODEINE #3 300-30 MG ORAL TABLET ACETAMINOPHEN-CODEINE Inactive HYDROCODONE-ACETAMINOPHEN 5-325 MG ORAL TABLET 1 po q 6hr PRN co ugh HYDROCODONE-ACETAMINOPHEN 5-325 MG ORAL TABLET 901109 HYDROCODONE-ACETAMINOPHEN Inactive AVELOX 400 MG ORAL TABLET 1 tab by mouth daily AVELOX 400 MG ORAL TABLET MOXIFLOXACIN HCL Inactive CHERATUSSIN AC 100-10 MG/5ML ORAL SYRUP 1 tsp by mouth every 4 hours as needed for cough CHERATUSSIN AC 100-10 MG/5ML ORAL SYRUP 9 34998 GUAIFENESIN-CODEINE Inactive TERBINAFINE HCL 250 MG ORAL TABLET 1 qDay 07/08 TERBINAFINE HCL 250 MG ORAL TABLET 793105 TERBINAFINE HCL Inactive CHERATUSSIN AC 100-10 MG/5ML ORAL SYRUP 1 tsp by mouth every 4 hours as needed for cough CHERATUSSIN AC 100-10 MG/5ML ORAL SYRUP 9 26338 GUAIFENESIN-CODEINE Inactive ACETAMINOPHEN-CODEINE #3 300-30 MG ORAL TABLET 1 PO Q 4-6 HRS AR N PAIN ACETAMINOPHEN-CODEINE #3 300-30 MG ORAL TABLET ACETAMINOPHEN-CODEINE Inactive CHERATUSSIN AC 100-10 MG/5ML ORAL SYRUP 1 tsp by mouth every 4 hours as needed for cough CHERATUSSIN AC 100-10 MG/5ML ORAL SYRUP 9 83688 GUAIFENESIN-CODEINE Inactive AUGMENTIN 875-125 MG ORAL TABLET 1 tab by mouth twice daily with food AUGMENTIN 875-125 MG ORAL TABLET AMOXICIL MADELINE-POT CLAVULANATE Inactive CHERATUSSIN AC 100-10 MG/5ML ORAL SYRUP take one tsp po Q 6h ours prn cough CHERATUSSIN AC 100-10 MG/5ML ORAL SYRUP 979145 GUAIFENESIN-CODEINE Inactive PROPRANOLOL HCL 60 MG ORAL TABLET 1 PO Q D PROPRANOLOL HCL 60 MG ORAL TABLET 286441 PROPRANOLOL HCL Inactive TOPAMAX 50 MG ORAL TABLET take 1 tab po BID for migraines. 07/02 TOPAMAX 50 MG ORAL TABLET 765400 TOPIRAMATE Inacti ve TOPAMAX 25 MG ORAL TABLET 1 qHS x 1 week, then 1 BID x 1 week, then 1 qAM and 2 qHS x 1 week, then 2 BID (migraine prevention) TOPAMAX 25 MG ORAL TABLET 270049 TOPIRAMATE Inactive LYRICA 75 MG ORAL CAPSULE TAKE 1 CAPSULE BY MOUTH TWICE DAILY LYRICA 75 MG ORAL CAPSULE 705675 PREGABALIN Inactive SYMBICORT 160-4.5 MCG/ACT INHALATION AEROSOL 2 puffs bid wit h rinse after SYMBICORT 160-4.5 MCG/ACT INHALATION AEROSOL BUDESONIDE- FORMOTEROL FUMARATE Inactive PROMETHAZINE-CODEINE 6.25-10 MG/5ML ORAL SYRUP 1 tsp b y mouth every 8 hours prn cough PROMETHAZINE-CODEINE 6.25-10 MG/ 5ML ORAL SYRUP 361886 PROMETHAZINE-CODEINE Inactive CYMBALTA 30 MG ORAL CAPSULE DELAYED RELEASE PARTICLES 1 cap by mouth daily CYMBALTA 30 MG ORAL CAPSULE DELAYED RELE ASE PARTICLES 837766 DULOXETINE HCL Inactive PREMARIN 0.625 MG ORAL TABLET TAKE 1 TAB BY MOUTH DAILY PREMARIN 0.625 MG ORAL TABLET ESTROGENS CONJUGATED Inactive CHERATUSSIN AC 100-10 MG/5ML ORAL SYRUP 1 tsp by mouth every 4 hours as needed for cough CHERATUSSIN AC 100-10 MG/5ML ORAL SYRUP 9 49691 GUAIFENESIN-CODEINE Inactive PROMETHAZINE-CODEINE 6.25-10 MG/5ML ORAL SYRUP 1 tsp b y mouth every 6 hours if needed for cough PROMETHAZINE-CODEINE 6.25-10 MG/5ML ORAL SYRUP 723693 PROMETHAZINE-CODEINE Inactive CHERATUSSIN AC 100-10 MG/5ML ORAL SYRUP 1 tsp by mouth every 4 hours as needed for cough CHERATUSSIN AC 100-10 MG/5ML ORAL SYRUP 9 30410 GUAIFENESIN-CODEINE Inactive FLUTICASONE PROPIONATE 50 MCG/ACT NASAL SUSPENSION 1 t o 2 sprays each nostril daily FLUTICASONE PROPIONATE 50 MCG/AC T NASAL SUSPENSION 2715224 FLUTICASONE PROPIONATE Inactive PREDNISONE 20 MG ORAL TABLET 3 tab PO qd x 2d, 2 tab P O qd x 2d, 1 tab PO qd x 2d, 1/2 tab PO qd x 2d PREDNISONE 20 MG ORAL TAB LET 820068 PREDNISONE Inactive LEVOFLOXACIN 500 MG ORAL TABLET 1 tab PO daily x 10 days LEVOFLOXACIN 500 MG ORAL TABLET 165992 LEVOFLOXACIN Inactive CYCLOBENZAPRINE HCL 10 MG ORAL TABLET 1 tablet by mouth BID prn had pain CYCLOBENZAPRINE HCL 10 MG ORAL TABLET 877468 CYCLOBENZAPRINE HCL Inactive ZOCOR 40 MG ORAL TABLET 1 tab by mouth daily 4 ZOCOR 40 MG ORAL TABLET 408847 SIMVASTATIN Inactive TUSSIONEX PENNKINETIC ER 10-8 MG/5ML [...] FLUTICASONE PROPIO EFE 50 MCG/ACT NASAL SUSPENSION 2668171 FLUTICASONE PROPIONATE Inactive TUSSIONEX PENNKINETIC ER 10-8 MG/5ML ORAL SUSPENSION E XTENDED RELEASE 5 mL PO q 12 hrs PRN cough TUSSIONEX PENNKINETI C ER 10-8 MG/5ML ORAL SUSPENSION EXTENDED RELEASE HYDROCOD POLST-CHLORPHEN POLST I nactive LYRICA 100 MG ORAL CAPSULE Take 1 tab po BID for fibromyalgia 20 11/08/21 LYRICA 100 MG ORAL CAPSULE 206844 PREGABALIN Inact nael TUSSIONEX PENNKINETIC ER 10-8 [...] three days PREDNISONE 20 MG ORAL TABLET 648799 PREDNIS ONE Inactive PROAIR HFA 108 (90 BASE) MCG/ACT INHALATION AEROSOL SO LUTION 2 puffs four times a day as needed PROAIR HFA 108 (90 B ASE) MCG/ACT INHALATION AEROSOL SOLUTION ALBUTEROL SULFATE Inactive PREDNISONE 20 MG ORAL TABLET two tabs by mouth today, then one tab by mouth days two and three and four PREDNISONE 20 MG ORAL TAB LET 552552 PREDNISONE Inactive TUSSIONEX PENNKINETIC ER 10-8 MG/5ML [...] bid 04/20 TOPAMAX 100 MG ORAL TABLET 591456 TOPIRAMATE Inactive CYMBALTA 30 MG ORAL CAPSULE DELAYED RELEASE PARTICLES 1 cap by mouth daily for depression CYMBALTA 30 MG ORAL CAPSULE DELAYED RELEASE PARTICLES 640384 DULOXETINE HCL Inactive TYLENOL WITH CODEINE #3 300-30 MG ORAL TABLET 1-2 po q6hr PRN Pa in TYLENOL WITH CODEINE #3 300-30 MG ORAL TABLET ACETAMINOPHEN-CODEINE Inactive ZITHROMAX Z-REYNA 250 MG ORAL TABLET 2 today, then 1 daily for 4 d ays ZITHROMAX Z-REYNA 250 MG ORAL TABLET 138133 AZITHROMYCIN Inactive CEFDINIR 300 MG ORAL CAPSULE by mouth twice a day 2010 CEFDINIR 300 MG ORAL CAPSULE 406162 CEFDINIR Inactive CEFDINIR 300 MG ORAL CAPSULE by mouth twice a day 2010 CEFDINIR 300 MG ORAL CAPSULE 168542 CEFDINIR Inactive CEFDINIR 300 MG ORAL CAPSULE by mouth twice a day 2010 CEFDINIR 300 MG ORAL CAPSULE 268455 CEFDINIR Inactive CEFDINIR 300 MG ORAL CAPSULE by mouth twice a day 2011 CEFDINIR 300 MG ORAL CAPSULE 280986 CEFDINIR Inactive ZITHROMAX 250 MG ORAL TABLET 2 po today, then 1 po q days 2-5 03/07/07 ZITHROMAX 250 MG ORAL TABLET [id number] AZITHROMYCIN [place] ctive CEFDINIR 300 MG ORAL CAPSULE by mouth twice a day 2011 CEFDINIR 300 MG ORAL CAPSULE [id number] CEFDINIR Inactive PREDNISONE 20 MG ORAL TABLET 2 tabs daily for 3 days, 1 tab daily for 3 days, 1/2 tab daily for 2 days PREDNISONE 20 MG ORAL T ABLET 544836 PREDNISONE Inactive AVELOX 400 MG ORAL TABLET [...] days 11/07 PREDNISONE 20 MG ORAL TABLET 106123 PREDNISONE Inactive LEVAQUIN 500 MG ORAL TABLET take one po QD LEVAQUIN 500 MG ORAL TABLET 342832 LEVOFLOXACIN Inactive AZITHROMYCIN 250 MG ORAL TABLET 2 po qd x 1 day, then 1 po q d x 4 days AZITHROMYCIN 250 MG ORAL TABLET 781407 AZITHROMY GIOVANNI Inactive MEDROL 4 MG ORAL TABLET THERAPY PACK 6 tabs on day 1, 5 tabs on day 2, 4 tabs on day 3, 3 tabs on day 4, 2 tabs on day 5, 1 tab on day 6 2013 MEDROL 4 MG ORAL TABLET THERAPY PACK 220522 METHYLPREDNISOLONE [place] [facility] CHERATUSSIN AC 100-10 MG/5ML ORAL SYRUP 5ml po q6hr PRN Cough 20 13/04/14 CHERATUSSIN AC 100-10 MG/5ML ORAL SYRUP 746539 GUAIFENE SIN-CODEINE Inactive TRIAMCINOLONE ACETONIDE 0.1 % EXTERNAL CREAM apply three roger es daily prn rash TRIAMCINOLONE ACETONIDE 0.1 % EXTERNAL CREAM 101 4314 TRIAMCINOLONE ACETONIDE Inactive AZITHROMYCIN 250 MG ORAL TABLET 2 po qd x 1 day, then 1 po q d x 4 days AZITHROMYCIN 250 MG ORAL TABLET 706493 AZITHROMY GIOVANNI Inactive MEDROL 4 MG ORAL TABLET THERAPY PACK 6 pills x 1 day, then 5 pills x 1 day then 4 pills x 1 day, then 3 pills x 1 day, then 2 pills x 1 day, then 1 pill x 1 day, then stop MEDROL 4 MG ORAL TABLET THERAPY PACK 681901 METHYLPREDNISOLONE Inactive AMOXICILLIN 500 MG ORAL CAPSULE 1 tab by mouth 3 times daily x 10 days AMOXICILLIN 500 MG ORAL CAPSULE 465226 AMOXICILL IN Inactive AMOXICILLIN 500 MG ORAL CAPSULE 1 tab by mouth 3 times daily x 10 days AMOXICILLIN 500 MG ORAL CAPSULE 562541 AMOXICILL IN Inactive ZITHROMAX 250 MG ORAL TABLET 2 po today, then 1 po q days 2-5 20 12/08/14 ZITHROMAX 250 MG ORAL TABLET 237107 AZITHROMYCIN [place] [facility] AUGMENTIN 875-125 MG ORAL TABLET 1 po BID x 10 days 20 13/01/20 AUGMENTIN 875-125 MG ORAL TABLET AMOXICILLIN-POT CLAVULANATE Inactive ZITHROMAX Z-REYNA 250 MG ORAL TABLET 2 today, then 1 daily for 4 d ays ZITHROMAX Z-REYNA 250 MG ORAL TABLET 564534 AZITHROMYCIN Inactive ZITHROMAX 250 MG ORAL TABLET 2 po today, then 1 po q days 2-5 20 14/03/21 ZITHROMAX 250 MG ORAL TABLET 284563 AZITHROMYCIN [place] [facility] ZITHROMAX Z-REYNA 250 MG ORAL TABLET 2 today, then 1 daily for 4 d ays ZITHROMAX Z-REYNA 250 MG ORAL TABLET 671323 AZITHROMYCIN Inactive CEFDINIR 300 MG ORAL CAPSULE 1 po BID x 10 days 06/21 CEFDINIR 300 MG ORAL CAPSULE 980694 CEFDINIR Inactive ZITHROMAX 250 MG ORAL TABLET 2 po today, then 1 po q days 2-5 20 13/08/10 ZITHROMAX 250 MG ORAL TABLET 826586 AZITHROMYCIN [place] [facility] LEVAQUIN 500 MG ORAL TABLET 1 tablet by mouth daily 20 13/09/24 LEVAQUIN 500 MG ORAL TABLET 19971102 LEVOFLOXACIN Inactive SINGULAIR 10 MG ORAL TABLET 1 po qday for allergies 20 14/01/12 SINGULAIR 10 MG ORAL TABLET 20010504 MONTELUKAST SODIUM Inactive AMOXICILLIN 500 MG ORAL CAPSULE 2 po BID x 10 days 201 09/29/08 AMOXICILLIN 500 MG ORAL CAPSULE 693756 AMOXICILLIN Inactive PREDNISONE 20 MG ORAL TABLET 2 tabs daily for 3 days, 1 tab daily for 3 days, 1/2 tab daily for 2 days PREDNISONE 20 MG ORAL T ABLET 464747 PREDNISONE Inactive ZITHROMAX Z-REYNA 250 MG ORAL TABLET 2 today, then 1 daily for 4 d ays ZITHROMAX Z-REYNA 250 MG ORAL TABLET 851175 AZITHROMYCIN Inactive PREDNISONE 20 MG ORAL TABLET 2 tabs daily for 3 days, 1 tab daily for 3 days, 1/2 tab daily for 2 days PREDNISONE 20 MG ORAL T ABLET 029561 PREDNISONE Inactive ZITHROMAX 250 MG ORAL TABLET 2 po today, then 1 po q days 2-5 20 14/09/04 ZITHROMAX 250 MG ORAL TABLET 796039 AZITHROMYCIN [place] [facility] AMOXICILLIN 500 MG ORAL CAPSULE 1 cap by mouth three times a day AMOXICILLIN 500 MG ORAL CAPSULE 365286 AMOXICILLIN Inactive TERBINAFINE HCL 250 MG ORAL TABLET 1 qDay for nail fungus 7 TERBINAFINE HCL 250 MG ORAL TABLET 114116 TERBINAFINE HCL Inact nael AUGMENTIN 875-125 MG ORAL TABLET 1 po BID x 10 days 20 16/03/22 AUGMENTIN 875-125 MG ORAL TABLET AMOXICILLIN-POT CLAVULANATE Inactive PREDNISONE 20 MG ORAL TABLET 2 po qd x 5 days PREDNISONE 20 MG ORAL TABLET 219686 PREDNISONE Inactive AZITHROMYCIN 250 MG ORAL TABLET 2 po qd x 1 day, then 1 po q d x 4 days AZITHROMYCIN 250 MG ORAL TABLET 654194 AZITHROMY GIOVANNI Inactive PREDNISONE 50 MG ORAL TABLET Take 50 mg dialy for 6 day s 7 PREDNISONE 50 MG ORAL TABLET 681895 PREDNISONE Inactive AUGMENTIN 875-125 MG ORAL TABLET 1 po BID x 10 days 20 18/04/16 AUGMENTIN 875-125 MG ORAL TABLET AMOXICILLIN-POT CLAVULANATE Inactive DOXYCYCLINE HYCLATE 100 MG ORAL CAPSULE 1 cap by mouth twice latasha ly DOXYCYCLINE HYCLATE 100 MG ORAL CAPSULE 1885199 DOXYCYCL INE HYCLATE Inactive PREDNISONE 20 MG ORAL TABLET Take 2 tabs day 1 and 2 and 1 t ab days 3 and 4 PREDNISONE 20 MG ORAL TABLET 310405 PREDNISONE Inactive AMOXICILLIN 500 MG ORAL CAPSULE 1 cap by mouth twice daily 10/21 AMOXICILLIN 500 MG ORAL CAPSULE 082290 AMOXICILLIN Inactive TRIAMCINOLONE ACETONIDE 0.1 % EXTERNAL OINTMENT Apply to affected areas TID PRN Rash/Itching for up 2 weeks TRIAMCINOLON E ACETONIDE 0.1 % EXTERNAL OINTMENT 1339297 TRIAMCINOLONE ACETONIDE Inactive ACYCLOVIR 800 MG ORAL TABLET 1 po 5 times daily x 7 days ACYCLOVIR 800 MG ORAL TABLET 614585 ACYCLOVIR Inactive Vital Signs Date Name Value [...] - Chem istry sodium, serum 139 mmol/L 471-748 4400/10/12 potassium, serum 3.8 mmol/L 3.5-5.2 chloride, serum [...] negative Encounters Code Encounter Date Provider Facility CPT-56150 Level 3 Est. Patient 14:16:41 CDT David Tin dle [facility] CPT-01778 Level 3 Est. Patient 13:57:55 CDT David Tin dle [facility] CPT-85846 Level 3 Est. Patient 16:08:07 CDT David Tin dle [facility] CPT-19907 Level 3 Est. Patient 16:53:54 CDT J Livan haas MD [facility]-22039 [id number] Vst-Est Level IV 08:41:[address] Carlton Hu MD [facility] CPT-84790 Level 3 Est. Patient 09:46:49 [employer] David Antonino riverae [facility]-91926 [id number] Vst-Est Level III 11:12:16 CDT Yanet Bess DO [facility] CPT-17166 Level 3 Est. Patient 11:34:49 [employer] Perez Mora MD [facility] CPT-58269 Level 4 Est. Patient 09:51:32 [employer] Carlton rich MD [facility] CPT-12522 Level 3 Est. Patient 10:26:00 [employer]EL[employer] Elise stephenson [facility] CPT-75241 Level 3 Est. Patient 13:35:41 [employer]EL[employer] Carlton rich MD [facility] CPT-13796 Level 3 Est. Patient 10:03:52 [employer]EL[employer] Carlton rich MD [facility] CPT-63049 Level 3 Est. Patient 12:17:50 CDT Hugo Restrepo MD [facility] CPT-48217 Level 3 Est. Patient 13:42:38 CDT Elise Are ll [facility] CPT-80861 Level 3 Est. Patient 13:23:51 CDT Diya Mariana mango [facility] CPT-22320 Level 3 Est. Patient 14:22:19 [employer]EL[employer] Diya cobian [facility] CPT-87035 Level 3 Est. Patient 10:11:46 CDT Carlton rich MD [facility] CPT-09718 Level 3 Est. Patient 17:29:43 CDT Elise Are [facility] CPT-05443 Level 3 Est. Patient 11:58:06 CDT Elise Are [facility] CPT-54458 Level 4 Est. Patient 14:36:51 CDT Carlton rich MD [facility] CPT-10627 Level 3 Est. Patient 18:16:00 [employer]EL[employer] Blaine HERNANDEZ [facility] CPT-31512 Level 3 Est. Patient 09:45:49 [employer]EL[employer] Carlton rich MD [facility] CPT-81263 Level 3 Est. Patient 13:19:20 CDT Carlton rich MD [facility] CPT-80250 Level 3 Est. Patient 13:06:43 CDT Ridge tam DO [facility] CPT-63516 Level 3 Est. Patient 10:03:07 CDT Perez Mora MD [facility] CPT-16833 Level 3 Est. Patient 19:50:35 [employer]EL[employer] Carlton rich MD [facility] CPT-67290 Level 4 Est. Patient 18:05:01 [employer]EL[employer] Carlton rich MD [facility] CPT-29525 Level 3 Est. Patient 10:45:55 [employer]EL[employer] Hugo Restrepo MD [facility]-49122 Level 3 Est. Patient 14:12:49 CDT Griffin HERNANDEZ [facility]-89268 Level 3 Est. Patient 17:37:24 CDT Carlton rich MD [facility]-60743 Level 3 Est. Patient 16:51:54 CDT Carlton rich MD [facility]-13807 Level 3 Est. Patient 12:18:11 CDT Hugo Restrepo MD [facility]-31278 Level 3 Est. Patient 11:30:25 CDT Marcy crisostomo MD PhD [facility]-86052 Level 3 Est. Patient 12:00:47 [employer]EL[employer] Carlton rich MD [facility]-79421 Level 3 Est. Patient 16:31:06 [employer] DEVELOPER Carlton rich MD [facility]-10696 Level 3 Est. Patient 16:23:24 [employer] DEVELOPER Ridge tam DO [facility] CPT-22626 Level 3 Est. Patient 12:34:12 CDT Carlton rich MD [facility]-05186 Level 2 Est. Patient 15:43:33 CDT Robi armstrong MD [facility]-90724 Level 4 Est. Patient 14:04:44 CDT Carlton rich MD [facility]-10428 Level 3 Est. Patient 05:47:59 CDT Ridge tam [facility]-23821 Level 3 Est. Patient 13:12:53 [employer]EL[employer] Carlton rich MD [facility] CPT-25230 Level 3 Est. Patient 14:26:53 CDT Hugo Restrepo MD [facility] Procedures Code Procedure Name Date Entry Date Standard Desc ription CPT-000 Give Appropriate Flu Vaccine 14:14:31 CDT 2 CPT-J1040 Depo Medrol 80 mg (Methyl Prednisolone A cetate) 10:42:44 CDT CPT-J1100 Decadron 8mg (Dexamethasone) 10:42:44 CDT 2 CPT-J0696 Rocephin 1gm Inj Solr 14:32:13 CDT CPT-J1020 Depo Medrol 60 mg (Methyl Prednisolone A cetate) 14:32:13 CDT CPT-J1100 Decadron 6mg (Dexamethasone) 14:32:13 CDT 2 CPT-59194 Hip bilat min 2V w AP pelvis 13:16:20 CDT 2 CPT-73407 Pelvis only 13:07:33 CDT CPT-61755 Spec Collection and Handling Fee 11:25:12 C DT CPT-67799 Fluzone Quadrivalent Intramuscular Suspe nsion 0.5 ML 14:31:55 CDT CPT-42938 Abx/Therapy Injection 13:28:47 [employer]EL[employer] CPT-J2930 Solu Medrol 125 mg (Methyl Prednisolone Sodium Succinate) 12:00:47 [employer] CPT-74751 Venipuncture Draw Fee 11:33:31 CDT CPT-27908 EKG Trac and Interp 11:21:09 CDT CPT-47243 Chest 2V Frontal and Lat 11:21:09 CDT 12/15 CPT-61898 Venipuncture Draw Fee 08:02:34 CDT CPT-81740 Chest 2V Frontal and Lat 05:47:59 CDT 06/05
--- OUTSIDE RECORDS SUMMARY | 2019-10-08 10:06 | XMS REPORT | Clinical Summary ---
Author Author Caitlin, Juliana Martinez Organization [facility] Address Unknown Phone Unavailable Allergies, Adverse [...] 35.0-35.9, adult BMI 35-35.9 Refinement David Marianne TECHNICAL DIRECTOR Body Mass Index 35.0-35.9, adult BMI 33-33.9 Active David Marianne TECHNICAL DIRECTOR Body Mass Index 35.0-35.9, adult Upper respiratory [...] nonspecific skin eruption 782.1 Active David Marianne TECHNICAL DIRECTOR Rash and other nonspecific skin eruption Pharyngitis, acute / sore throat 462 Active 201 12/06/23 David Marianne TECHNICAL DIRECTOR Acute pharyngitis Shingles 053.9 Active David Marianne TECHNICAL DIRECTOR Herpes zoster without mention of complication BRONCHITIS [...] CODEINE #3 300-30 MG ORAL TABLET ACETAMINOPHEN-CODEINE 16660077254 Active David Marianne TECHNICAL DIRECTOR A ctive TRIAMCINOLONE ACETONIDE 0.1 % EXTERNAL CREAM apply bid spari ngly to rash TRIAMCINOLONE ACETONIDE 18063192186 Active David Marianne TECHNICAL DIRECTOR Active TYLENOL WITH CODEINE #3 300-30 MG ORAL TABLET 1-2 po q6hr PRN Pa in ACETAMINOPHEN-CODEINE 36223252753 No Longer Active David Marianne AP RN Active ACYCLOVIR 800 MG ORAL TABLET 1 po 5 times daily x 7 days ACYCLOVIR 65847012964 No Longer Active David Marianne TECHNICAL DIRECTOR Active TOPAMAX 100 MG ORAL TABLET 1 by mouth twice daily TOPIRAMATE 75465334943 Active Columba Raida Active TRIAMCINOLONE ACETONIDE 0.1 % EXTERNAL OINTMENT Apply to affected areas TID PRN Rash/Itching for up 2 weeks TRIAMCINOLONE ACETON KAYLA 46245295186 No Longer Active David Marianne TECHNICAL DIRECTOR Active AMOXICILLIN 500 MG ORAL CAPSULE 1 cap by mouth twice daily 10/21 AMOXICILLIN 56686888530 No Longer Active David Marianne TECHNICAL DIRECTOR Active ELMIRON 100 MG ORAL CAPSULE 2 capsules in the morning and 1 capsule at night PENTOSAN POLYSULFATE SODIUM 69627230657 Active Cinthia H art DIP PAINTER Active CYMBALTA 30 MG ORAL CAPSULE DELAYED RELEASE PARTICLES 1 cap by mouth daily for depression DULOXETINE HCL 40884999943 No Longer Active Carlton Hu MD Active CYMBALTA 60 MG ORAL CAPSULE DELAYED RELEASE PARTICLES 1 cap by mouth daily for mood and pain DULOXETINE HCL 85951576163 Active Carlton Hu MD Active TUSSIONEX PENNKINETIC ER 10-8 MG/5ML ORAL SUSPENSION E XTENDED RELEASE 5ml po q12hr PRN Cough HYDROCOD POLST-CHLORPHEN POLST 16946311196 Active David Marianne TECHNICAL DIRECTOR Active PREDNISONE 20 MG ORAL TABLET Take 2 tabs day 1 and 2 and 1 t ab days 3 and 4 PREDNISONE 35060963134 No Longer Active David Marianne TECHNICAL DIRECTOR Active DOXYCYCLINE HYCLATE 100 MG ORAL CAPSULE 1 cap by mouth twice latasha ly DOXYCYCLINE HYCLATE 08297619302 No Longer Active David Marianne TECHNICAL DIRECTOR Active TOPAMAX 100 MG ORAL TABLET Take 1 tablet po bid TOPIRAMATE 05961202037 No Longer Active David Marianne TECHNICAL DIRECTOR Active TUSSIONEX PENNKINETIC ER 10-8 MG/5ML ORAL SUSPENSION E XTENDED RELEASE 5ml po q12hr PRN Cough HYDROCOD POLST-CHLORPHEN POLST 5 6568744552 No Longer Active David Marianne TECHNICAL DIRECTOR Active AUGMENTIN 875-125 MG ORAL TABLET 1 po BID x 10 days 18/04/16 AMOXICILLIN-POT CLAVULANATE 26108262481 No Longer Active David Marianne TECHNICAL DIRECTOR Active PREDNISONE 50 MG ORAL TABLET Take 50 mg dialy for 6 day s 7 PREDNISONE 48386039338 No Longer Active David Marianne TECHNICAL DIRECTOR Active TUSSIONEX PENNKINETIC ER 10-8 MG/5ML ORAL SUSPENSION E XTENDED RELEASE 5ml po q12hr PRN Cough HYDROCOD POLST-CHLORPHEN POLST 5 9848931732 No Longer Active Cherelle Torres RN Active PREDNISONE 20 MG ORAL TABLET two tabs by mouth today, then one tab by mouth days two and three and four PREDNISONE 83478631689 No Lo nger Active Cherelle Torres RN Active AZITHROMYCIN 250 MG ORAL TABLET 2 po qd x 1 day, then 1 po q d x 4 days AZITHROMYCIN 00252926957 No Longer Active Ridge Bess DO Active PREDNISONE 20 MG ORAL TABLET 2 po qd x 5 days P REDNISONE 75135651858 No Longer Active Perez Mora MD Active PROAIR HFA 108 (90 BASE) MCG/ACT INHALATION AEROSOL SO LUTION 2 puffs four times a day as needed ALBUTEROL SULFATE 97768864557 No Long er Active Becky FUENTES Active ASPIRIN 81 MG ORAL TABLET 1 po qd ASPIRIN 35174904950 Active Carlton Hu MD Active PREDNISONE 20 MG ORAL TABLET 1 tab twice daily for 3 d ay, then one daily for three days PREDNISONE 51618667930 No Longer Active Carlton Hu MD Active AUGMENTIN 875-125 MG ORAL TABLET 1 po BID x 10 days 20 16/03/22 AMOXICILLIN-POT CLAVULANATE 72216899994 No Longer Active Elise Garcia APRN Active TERBINAFINE HCL 250 MG ORAL TABLET 1 qDay for nail fungus 7 TERBINAFINE HCL 66311073790 No Longer Active Carlton Hu MD A ctive AMOXICILLIN 500 MG ORAL CAPSULE 1 cap by mouth three times a day AMOXICILLIN 43034138322 No Longer Active Carlton Hu MD Active ELMIRON 100 MG ORAL CAPSULE 2 tablets in the am and 1 tablet at hs PENTOSAN POLYSULFATE SODIUM 60065925769 No Longer Active Robert Hu MD Active MUCINEX D 60-600 MG ORAL TABLET EXTENDED RELEASE 12 HOUR 1 t ab po q am PSEUDOEPHEDRINE-GUAIFENESIN 02157077900 No Longer Act nael Carlton Hu MD Active MUCINEX DM MAXIMUM STRENGTH 60-1200 MG ORAL TABLET EXT ENDED RELEASE 12 HOUR 1 tab po q am DEXTROMETHORPHAN-GUAIFENESIN 03643164993 No Longer Active Carlton Hu MD Active TUSSIONEX PENNKINETIC ER 10-8 MG/5ML ORAL SUSPENSION E XTENDED RELEASE 5ml po q12hr PRN Cough HYDROCOD POLST-CHLORPHEN POLST 5 7670109564 No Longer Active Carlton Hu MD Active POTASSIUM CHLORIDE ER 20 MEQ ORAL TABLET EXTENDED RELE ASE Take 1 by mouth 4 times daily for 7 days POTASSIUM CHLORIDE 22421138339 No Longer Active Carlton Hu MD Active ZITHROMAX 250 MG ORAL TABLET 2 po today, then 1 po q days 2-5 20 14/09/04 AZITHROMYCIN 66756118310 No Longer Active Elise Garcia TECHNICAL DIRECTOR Active TUSSIONEX PENNKINETIC ER 10-8 MG/5ML ORAL SUSPENSION E XTENDED RELEASE 5 ml twice a day as needed for cough HYDROCOD POLST-CHLORPH EN POLST 49085360244 No Longer Active Elise Garcia APRN Active MONTELUKAST SODIUM 10 MG ORAL TABLET 1 po daily for Allergy MONTELUKAST SODIUM 99204676345 Active Carlton Hu MD Ac tive TUSSIONEX PENNKINETIC ER 10-8 MG/5ML ORAL SUSPENSION E XTENDED RELEASE 5ml po q12hr PRN Cough HYDROCOD POLST-CHLORPHEN POLST 5 5701443886 No Longer Active Hugo Restrepo MD Active GABAPENTIN 100 MG ORAL CAPSULE 1 po BID for fibromyalgia GABAPENTIN 34214801878 Active ALFREDO Holly Active LYRICA 100 MG ORAL CAPSULE Take 1 tab po BID for fibromyalgia 20 11/08/21 PREGABALIN 53228336029 No Longer Active Elise Garcia APRN A ctive PREDNISONE 20 MG ORAL TABLET 2 tabs daily for 3 days, 1 tab daily for 3 days, 1/2 tab daily for 2 days PREDNISONE 57667472116 No Longer Active Diya De Guzman APRN Active TUSSIONEX PENNKINETIC ER 10-8 MG/5ML ORAL SUSPENSION E XTENDED RELEASE 5 mL PO q 12 hrs PRN cough HYDROCOD POLST-CHLORPHEN POLST 259011 25866 No Longer Active Diya Guerrerol TECHNICAL DIRECTOR Active FLUTICASONE PROPIONATE 50 MCG/ACT NASAL SUSPENSION 2 s prays each nostril daily until bottle is empty FLUTICASONE PROPIONATE 255299087 99 No Longer Active Jillina Frakerriel TECHNICAL DIRECTOR Active ASMANEX 60 METERED DOSES 220 MCG/INH INHALATION AEROSO L POWDER BREATH ACTIVATED 1 puff bid with rinse after MOMETASONE FUROATE 4385399 4102 No Longer Active Venullina Cesarl TECHNICAL DIRECTOR Active ZITHROMAX Z-REYNA 250 MG ORAL TABLET 2 today, then 1 daily for 4 d ays AZITHROMYCIN 15246445000 No Longer Active Elise Garcia APRN Active TUSSIONEX PENNKINETIC ER 10-8 MG/5ML ORAL SUSPENSION E XTENDED RELEASE 5ml po q12hr PRN Cough HYDROCOD POLST-CHLORPHEN POLST 5 5970624644 No Longer Active Eilse Garcia APRN Active PREDNISONE 20 MG ORAL TABLET 2 tabs daily for 3 days, 1 tab daily for 3 days, 1/2 tab daily for 2 days PREDNISONE 68349562151 No Longer Active Diya De Guzman APRN Active AMOXICILLIN 500 MG ORAL CAPSULE 2 po BID x 10 days 201 09/29/08 AMOXICILLIN 46786525701 No Longer Active Diya De Guzman APRN Act nael SINGULAIR 10 MG ORAL TABLET 1 po qday for allergies 20 14/01/12 MONTELUKAST SODIUM 08999311511 No Longer Active Carlton Hu MD Active LEVAQUIN 500 MG ORAL TABLET 1 tablet by mouth daily 20 13/09/24 LEVOFLOXACIN 22204037219 No Longer Active Carlton Hu MD Acti ve FLUTICASONE PROPIONATE 50 MCG/ACT NASAL SUSPENSION 2 s prays each nostril daily for 2 weeks, then 1 spray each nostril daily. FLUTICASONE PROPIONATE 04358200722 Active Carlton Hu MD Active ZITHROMAX 250 MG ORAL TABLET 2 po today, then 1 po q days 2-5 20 13/08/10 AZITHROMYCIN 43129109294 No Longer Active Elise Garcia APRN Active XANAX 0.5 MG ORAL TABLET one tablet by mouth daily prn anxiety 2015 ALPRAZOLAM 96621876650 Active ALFREDO Holly Active CEFDINIR 300 MG ORAL CAPSULE 1 po BID x 10 days CEFDINIR 76717003267 No Longer Active Carlton Hu MD Active ZOCOR 40 MG ORAL TABLET 1 tab by mouth daily SI MVASTATIN 93256795635 No Longer Active Carlton Hu MD Active CYCLOBENZAPRINE HCL 10 MG ORAL TABLET 1 tablet by mouth BID prn had pain CYCLOBENZAPRINE HCL 11402875095 No Longer Active Jayden Hu MD Active LEVOFLOXACIN 500 MG ORAL TABLET 1 tab PO daily x 10 days LEVOFLOXACIN 65059271932 No Longer Active Carlton Hu MD Acti ve PREDNISONE 20 MG ORAL TABLET 3 tab PO qd x 2d, 2 tab P O qd x 2d, 1 tab PO qd x 2d, 1/2 tab PO qd x 2d PREDNISONE 75432381822 No Lo nger Active Carlton Hu MD Active FLUTICASONE PROPIONATE 50 MCG/ACT NASAL SUSPENSION 1 t o 2 sprays each nostril daily FLUTICASONE PROPIONATE 01016901151 No Longer Ac tive Blaine HERNANDEZ Active CHERATUSSIN AC 100-10 MG/5ML ORAL SYRUP 1 tsp by mouth every 4 hours as needed for cough GUAIFENESIN-CODEINE 91038109745 No Longe r Active Blaine HERNANDEZ Active PROMETHAZINE-CODEINE 6.25-10 MG/5ML ORAL SYRUP 1 tsp b y mouth every 6 hours if needed for cough PROMETHAZINE-CODEINE 17062846878 No Longer Active Blaine HERNANDEZ Active CHERATUSSIN AC 100-10 MG/5ML ORAL SYRUP 1 tsp by mouth every 4 hours as needed for cough GUAIFENESIN-CODEINE 01564135489 No Longe r Active Blaine HERNANDEZ Active ZITHROMAX Z-REYNA 250 MG ORAL TABLET 2 today, then 1 daily for 4 d ays AZITHROMYCIN 61055655938 No Longer Active Columba Raida Act nael ZITHROMAX 250 MG ORAL TABLET 2 po today, then 1 po q days 2-5 20 14/03/21 AZITHROMYCIN 87565096558 No Longer Active Cralton Hu MD Active ZITHROMAX Z-REYNA 250 MG ORAL TABLET 2 today, then 1 daily for 4 d ays AZITHROMYCIN 87458655704 No Longer Active Columba Raida Act nael AUGMENTIN 875-125 MG ORAL TABLET 1 po BID x 10 days 13/01/20 AMOXICILLIN-POT CLAVULANATE 96428874120 No Longer Active Diya De Guzman APRN Active ZITHROMAX 250 MG ORAL TABLET 2 po today, then 1 po q days 2-5 20 12/08/14 AZITHROMYCIN 34817938172 No Longer Active Carlton Hu MD Active TRAMADOL HCL 50 MG ORAL TABLET 1 po tid with ES Tylenol TRAMADOL HCL 36859024946 Active Carlton Hu MD Active PREMARIN 0.625 MG ORAL TABLET TAKE 1 TAB BY MOUTH DAILY ESTROGENS CONJUGATED 97581061941 No Longer Active Ridge Bess DO A ctive CYMBALTA 30 MG ORAL CAPSULE DELAYED RELEASE PARTICLES 1 cap by mouth daily DULOXETINE HCL 64607088012 No Longer Active Ridge tam DO Active AMOXICILLIN 500 MG ORAL CAPSULE 1 tab by mouth 3 times daily x 10 days AMOXICILLIN 07022981719 No Longer Active Carlton bustamante MD Active AMOXICILLIN 500 MG ORAL CAPSULE 1 tab by mouth 3 times daily x 10 days AMOXICILLIN 10233929823 No Longer Active Carlton bustamante MD Active PROMETHAZINE-CODEINE 6.25-10 MG/5ML ORAL SYRUP 1 tsp b y mouth every 8 hours prn cough PROMETHAZINE-CODEINE 83729586761 No Longer Acti ve Carlton Hu MD Active MEDROL 4 MG ORAL TABLET THERAPY PACK 6 pills x 1 day, then 5 pills x 1 day then 4 pills x 1 day, then 3 pills x 1 day, then 2 pills x 1 day, then 1 pill x 1 day, then stop METHYLPREDNISOLONE 88636786054 No Long er Active Perez Mora MD Active AZITHROMYCIN 250 MG ORAL TABLET 2 po qd x 1 day, then 1 po q d x 4 days AZITHROMYCIN 84524196034 No Longer Active Perez Ambriz MD Active SYMBICORT 160-4.5 MCG/ACT INHALATION AEROSOL 2 puffs bid wit h rinse after BUDESONIDE-FORMOTEROL FUMARATE 59600857025 N o Longer Active Perez Mora MD Active LYRICA 75 MG ORAL CAPSULE TAKE 1 CAPSULE BY MOUTH TWICE DAILY PREGABALIN 78424332435 No Longer Active Carlton Hu MD Acti ve TOPAMAX 25 MG ORAL TABLET 1 qHS x 1 week, then 1 BID x 1 week, then 1 qAM and 2 qHS x 1 week, then 2 BID (migraine prevention) T OPIRAMATE 73858450318 No Longer Active Jerica FUENTES Active TOPAMAX 50 MG ORAL TABLET take 1 tab po BID for migraines. 07/02 TOPIRAMATE 48195152165 No Longer Active Jerica FUENTES Active TRIAMCINOLONE ACETONIDE 0.1 % EXTERNAL CREAM apply three roger es daily prn rash TRIAMCINOLONE ACETONIDE 82466729018 No Longer Active Carlton Hu MD Active PAXIL 40 MG ORAL TABLET take 1 tab po qday for depression 0 PAROXETINE HCL 14045500004 Active Carlton Hu MD Active CHERATUSSIN AC 100-10 MG/5ML ORAL SYRUP 5ml po q6hr PRN Cough 20 13/04/14 GUAIFENESIN-CODEINE 83367828679 No Longer Active Carlton Hu MD Active MEDROL 4 MG ORAL TABLET THERAPY PACK 6 tabs on day 1, 5 tabs on day 2, 4 tabs on day 3, 3 tabs on day 4, 2 tabs on day 5, 1 tab on day 6 2013 METHYLPREDNISOLONE 04704581362 No Longer Active Perez Mora MD Active AZITHROMYCIN 250 MG ORAL TABLET 2 po qd x 1 day, then 1 po q d x 4 days AZITHROMYCIN 83428890259 No Longer Active Perez Ambriz MD Active PROPRANOLOL HCL 60 MG ORAL TABLET 1 PO Q D PROPRANOLOL HCL 31323043943 No Longer Active Perez Mora MD Activ e CHERATUSSIN AC 100-10 MG/5ML ORAL SYRUP take one tsp po Q 6h ours prn cough GUAIFENESIN-CODEINE 85254019306 No Longer Active Zia Mora MD Active AUGMENTIN 875-125 MG ORAL TABLET 1 tab by mouth twice daily with food AMOXICILLIN-POT CLAVULANATE 83574171991 No Longer Act nael Perez Mora MD Active CHERATUSSIN AC 100-10 MG/5ML ORAL SYRUP 1 tsp by mouth every 4 hours as needed for cough GUAIFENESIN-CODEINE 81318317252 No Longe r Active Hugo Restrepo MD Active ACETAMINOPHEN-CODEINE #3 300-30 MG ORAL TABLET 1 PO Q 4-6 HRS MS N PAIN ACETAMINOPHEN-CODEINE 00648727787 No Longer Active Hugo Restrepo MD Active LEVAQUIN 500 MG ORAL TABLET take one po QD LEVO FLOXACIN 02550453625 No Longer Active Griffin HERNANDEZ Active PREDNISONE 20 MG ORAL TABLET Take 3 tabs daily for 3 d ays, 2 tabs daily for 3 days, 1 tab daily for 3 days, 1/2 tab daily for 3 days 11/07 PREDNISONE 25492451597 No Longer Active Carlton Hu MD Acti ve AVELOX 400 MG ORAL TABLET 1 tab by mouth daily MOXIFLOXACIN HCL 95882534443 No Longer Active Carlton Hu MD Active CHERATUSSIN AC 100-10 MG/5ML ORAL SYRUP 1 tsp by mouth every 4 hours as needed for cough GUAIFENESIN-CODEINE 72112674892 No Longe r Active Hugo Restrepo MD Active AVELOX 400 MG ORAL TABLET 1 tab by mouth daily MOXIFLOXACIN HCL 72398282731 No Longer Active Marcy De La Rosa MD PhD Active TERBINAFINE HCL 250 MG ORAL TABLET 1 qDay T ERBINAFINE HCL 99151186969 No Longer Active Marcy De La Rosa MD PhD Active CHERATUSSIN AC 100-10 MG/5ML ORAL SYRUP 1 tsp by mouth every 4 hours as needed for cough GUAIFENESIN-CODEINE 78417093834 No Longe r Active Marcy De La Rosa MD PhD Active AVELOX 400 MG ORAL TABLET 1 tab by mouth daily MOXIFLOXACIN HCL 37278378486 No Longer Active Marcy De La Rosa MD PhD Active HYDROCODONE-ACETAMINOPHEN 5-325 MG ORAL TABLET 1 po q 6hr PRN co ugh HYDROCODONE-ACETAMINOPHEN 37059973794 No Longer Active Marcy De La Rosa MD PhD Active PREDNISONE 20 MG ORAL TABLET 2 tabs daily for 3 days, 1 tab daily for 3 days, 1/2 tab daily for 2 days PREDNISONE 25663287892 No Longer Active Carlton Hu MD Active CEFDINIR 300 MG ORAL CAPSULE by mouth twice a day 2011 CEFDINIR 53630259478 No Longer Active Carlton Hu MD Acti ve HYDROCHLOROTHIAZIDE 25 MG ORAL TABLET 1 TAB PO DAILY HYDROCHLOROTHIAZIDE 55052576237 Active Carlton Hu MD A ctive ACETAMINOPHEN-CODEINE #3 300-30 MG ORAL TABLET 1 tablet po q 4-6 hrs prn pain ACETAMINOPHEN-CODEINE 17540791909 No Longer Active Ridge Bess DO Active ZITHROMAX 250 MG ORAL TABLET 2 po today, then 1 po q days 2-5 20 03/07/07 AZITHROMYCIN 53199950416 No Longer Active Carlton Hu MD Active CHERATUSSIN AC 100-10 MG/5ML ORAL SYRUP take 1 tsp po q4-6 h ours prn cough GUAIFENESIN-CODEINE 94797431378 No Longer Active Jayden Hu MD Active ACETAMINOPHEN-CODEINE #3 300-30 MG ORAL TABLET 1 PO Q 4-6 HR PRN PAIN ACETAMINOPHEN-CODEINE 57937714464 No Longer Active Da raimundo Hu MD Active LORTAB 7.5-500 MG/15ML ORAL ELIXIR 7.5 ml po q 4 hour prn cough HYDROCODONE-ACETAMINOPHEN 41974493488 No Longer Active Carlton Hu MD Active PREDNISONE 20 MG ORAL TABLET 1 po bid 3 days, then 1 po q day 3 days PREDNISONE 39762599654 No Longer Active Carlton Hu MD Active CEFDINIR 300 MG ORAL CAPSULE by mouth twice a day 2011 CEFDINIR 94557545757 No Longer Active Carlton Hu MD Acti ve CEFDINIR 300 MG ORAL CAPSULE by mouth twice a day 2010 CEFDINIR 29215150773 No Longer Active Carlton Hu MD Acti ve CEFDINIR 300 MG ORAL CAPSULE by mouth twice a day 2010 CEFDINIR 52345057442 No Longer Active Carlton Hu MD Acti ve TESSALON PERLES 100 MG ORAL CAPSULE 1 tablet by mouth 3 times daily as needed for cough BENZONATATE 62030594654 No Longer Active Carlton uH MD Active CEFDINIR 300 MG ORAL CAPSULE by mouth twice a day 2010 CEFDINIR 15231773610 No Longer Active Carlton Hu MD Acti ve ZITHROMAX Z-REYNA 250 MG ORAL TABLET 2 today, then 1 daily for 4 d ays AZITHROMYCIN 96697537394 No Longer Active Hugo Restrepo MD Active TESSALON PERLES 100 MG ORAL CAPSULE 1 tablet by mouth 3 times daily as needed for cough TESSALON PERLES 100 MG ORAL CAPSULE 77547 7 BENZONATATE Inactive PREDNISONE 20 MG ORAL TABLET 1 po bid 3 days, then 1 po q day 3 days PREDNISONE 20 MG ORAL TABLET 133854 PREDNISONE Greer ctive LORTAB 7.5-500 MG/15ML ORAL [...] cough CHERATUSSIN AC 100-10 MG/5ML ORAL SYRUP 152705 GUAIFENESIN-CODEINE Inactive ACETAMINOPHEN-CODEINE #3 300-30 MG ORAL TABLET 1 tablet po q 4-6 hrs prn pain ACETAMINOPHEN-CODEINE #3 300-30 MG ORAL TABLET ACETAMINOPHEN-CODEINE Inactive HYDROCODONE-ACETAMINOPHEN 5-325 MG ORAL TABLET 1 po q 6hr PRN co ugh HYDROCODONE-ACETAMINOPHEN 5-325 MG ORAL TABLET 484001 HYDROCODONE-ACETAMINOPHEN Inactive AVELOX 400 MG ORAL TABLET 1 tab by mouth daily AVELOX 400 MG ORAL TABLET MOXIFLOXACIN HCL Inactive CHERATUSSIN AC 100-10 MG/5ML ORAL SYRUP 1 tsp by mouth every 4 hours as needed for cough CHERATUSSIN AC 100-10 MG/5ML ORAL SYRUP 9 98663 GUAIFENESIN-CODEINE Inactive TERBINAFINE HCL 250 MG ORAL TABLET 1 qDay 07/08 TERBINAFINE HCL 250 MG ORAL TABLET 557730 TERBINAFINE HCL Inactive CHERATUSSIN AC 100-10 MG/5ML ORAL SYRUP 1 tsp by mouth every 4 hours as needed for cough CHERATUSSIN AC 100-10 MG/5ML ORAL SYRUP 9 22380 GUAIFENESIN-CODEINE Inactive ACETAMINOPHEN-CODEINE #3 300-30 MG ORAL TABLET 1 PO Q 4-6 HRS MS N PAIN ACETAMINOPHEN-CODEINE #3 300-30 MG ORAL TABLET ACETAMINOPHEN-CODEINE Inactive CHERATUSSIN AC 100-10 MG/5ML ORAL SYRUP 1 tsp by mouth every 4 hours as needed for cough CHERATUSSIN AC 100-10 MG/5ML ORAL SYRUP 9 13382 GUAIFENESIN-CODEINE Inactive AUGMENTIN 875-125 MG ORAL TABLET 1 tab by mouth twice daily with food AUGMENTIN 875-125 MG ORAL TABLET AMOXICIL MADELINE-POT CLAVULANATE Inactive CHERATUSSIN AC 100-10 MG/5ML ORAL SYRUP take one tsp po Q 6h ours prn cough CHERATUSSIN AC 100-10 MG/5ML ORAL SYRUP 401446 GUAIFENESIN-CODEINE Inactive PROPRANOLOL HCL 60 MG ORAL TABLET 1 PO Q D PROPRANOLOL HCL 60 MG ORAL TABLET 029776 PROPRANOLOL HCL Inactive TOPAMAX 50 MG ORAL TABLET take 1 tab po BID for migraines. 07/02 TOPAMAX 50 MG ORAL TABLET 431487 TOPIRAMATE Inacti ve TOPAMAX 25 MG ORAL TABLET 1 qHS x 1 week, then 1 BID x 1 week, then 1 qAM and 2 qHS x 1 week, then 2 BID (migraine prevention) TOPAMAX 25 MG ORAL TABLET 105467 TOPIRAMATE Inactive LYRICA 75 MG ORAL CAPSULE TAKE 1 CAPSULE BY MOUTH TWICE DAILY LYRICA 75 MG ORAL CAPSULE 668057 PREGABALIN Inactive SYMBICORT 160-4.5 MCG/ACT INHALATION AEROSOL 2 puffs bid wit h rinse after SYMBICORT 160-4.5 MCG/ACT INHALATION AEROSOL BUDESONIDE- FORMOTEROL FUMARATE Inactive PROMETHAZINE-CODEINE 6.25-10 MG/5ML ORAL SYRUP 1 tsp b y mouth every 8 hours prn cough PROMETHAZINE-CODEINE 6.25-10 MG/ 5ML ORAL SYRUP 964484 PROMETHAZINE-CODEINE Inactive CYMBALTA 30 MG ORAL CAPSULE DELAYED RELEASE PARTICLES 1 cap by mouth daily CYMBALTA 30 MG ORAL CAPSULE DELAYED RELE ASE PARTICLES 721425 DULOXETINE HCL Inactive PREMARIN 0.625 MG ORAL TABLET TAKE 1 TAB BY MOUTH DAILY PREMARIN 0.625 MG ORAL TABLET ESTROGENS CONJUGATED Inactive CHERATUSSIN AC 100-10 MG/5ML ORAL SYRUP 1 tsp by mouth every 4 hours as needed for cough CHERATUSSIN AC 100-10 MG/5ML ORAL SYRUP 9 24007 GUAIFENESIN-CODEINE Inactive PROMETHAZINE-CODEINE 6.25-10 MG/5ML ORAL SYRUP 1 tsp b y mouth every 6 hours if needed for cough PROMETHAZINE-CODEINE 6.25-10 MG/5ML ORAL SYRUP 901514 PROMETHAZINE-CODEINE Inactive CHERATUSSIN AC 100-10 MG/5ML ORAL SYRUP 1 tsp by mouth every 4 hours as needed for cough CHERATUSSIN AC 100-10 MG/5ML ORAL SYRUP 9 16215 GUAIFENESIN-CODEINE Inactive FLUTICASONE PROPIONATE 50 MCG/ACT NASAL SUSPENSION 1 t o 2 sprays each nostril daily FLUTICASONE PROPIONATE 50 MCG/AC T NASAL SUSPENSION 1976583 FLUTICASONE PROPIONATE Inactive PREDNISONE 20 MG ORAL TABLET 3 tab PO qd x 2d, 2 tab P O qd x 2d, 1 tab PO qd x 2d, 1/2 tab PO qd x 2d PREDNISONE 20 MG ORAL TAB LET 496144 PREDNISONE Inactive LEVOFLOXACIN 500 MG ORAL TABLET 1 tab PO daily x 10 days LEVOFLOXACIN 500 MG ORAL TABLET 785903 LEVOFLOXACIN Inactive CYCLOBENZAPRINE HCL 10 MG ORAL TABLET 1 tablet by mouth BID prn had pain CYCLOBENZAPRINE HCL 10 MG ORAL TABLET 812364 CYCLOBENZAPRINE HCL Inactive ZOCOR 40 MG ORAL TABLET 1 tab by mouth daily 4 ZOCOR 40 MG ORAL TABLET 344668 SIMVASTATIN Inactive TUSSIONEX PENNKINETIC ER 10-8 MG/5ML [...] FLUTICASONE PROPIO EFE 50 MCG/ACT NASAL SUSPENSION 6230067 FLUTICASONE PROPIONATE Inactive TUSSIONEX PENNKINETIC ER 10-8 MG/5ML ORAL SUSPENSION E XTENDED RELEASE 5 mL PO q 12 hrs PRN cough TUSSIONEX PENNKINETI C ER 10-8 MG/5ML ORAL SUSPENSION EXTENDED RELEASE HYDROCOD POLST-CHLORPHEN POLST I nactive LYRICA 100 MG ORAL CAPSULE Take 1 tab po BID for fibromyalgia 20 11/08/21 LYRICA 100 MG ORAL CAPSULE 307953 PREGABALIN Inact nael TUSSIONEX PENNKINETIC ER 10-8 [...] three days PREDNISONE 20 MG ORAL TABLET 751056 PREDNIS ONE Inactive PROAIR HFA 108 (90 BASE) MCG/ACT INHALATION AEROSOL SO LUTION 2 puffs four times a day as needed PROAIR HFA 108 (90 B ASE) MCG/ACT INHALATION AEROSOL SOLUTION ALBUTEROL SULFATE Inactive PREDNISONE 20 MG ORAL TABLET two tabs by mouth today, then one tab by mouth days two and three and four PREDNISONE 20 MG ORAL TAB LET 373917 PREDNISONE Inactive TUSSIONEX PENNKINETIC ER 10-8 MG/5ML [...] bid 04/20 TOPAMAX 100 MG ORAL TABLET 627000 TOPIRAMATE Inactive CYMBALTA 30 MG ORAL CAPSULE DELAYED RELEASE PARTICLES 1 cap by mouth daily for depression CYMBALTA 30 MG ORAL CAPSULE DELAYED RELEASE PARTICLES 767857 DULOXETINE HCL Inactive TYLENOL WITH CODEINE #3 300-30 MG ORAL TABLET 1-2 po q6hr PRN Pa in TYLENOL WITH CODEINE #3 300-30 MG ORAL TABLET ACETAMINOPHEN-CODEINE Inactive ZITHROMAX Z-REYNA 250 MG ORAL TABLET 2 today, then 1 daily for 4 d ays ZITHROMAX Z-REYNA 250 MG ORAL TABLET 177382 AZITHROMYCIN Inactive CEFDINIR 300 MG ORAL CAPSULE by mouth twice a day 2010 CEFDINIR 300 MG ORAL CAPSULE 397134 CEFDINIR Inactive CEFDINIR 300 MG ORAL CAPSULE by mouth twice a day 2010 CEFDINIR 300 MG ORAL CAPSULE 902849 CEFDINIR Inactive CEFDINIR 300 MG ORAL CAPSULE by mouth twice a day 2010 CEFDINIR 300 MG ORAL CAPSULE 552101 CEFDINIR Inactive CEFDINIR 300 MG ORAL CAPSULE by mouth twice a day 2011 CEFDINIR 300 MG ORAL CAPSULE [id number] CEFDINIR Inactive ZITHROMAX 250 MG ORAL TABLET 2 po today, then 1 po q days 2-5 03/07/07 ZITHROMAX 250 MG ORAL TABLET 360859 AZITHROMYCIN [place] ctive CEFDINIR 300 MG ORAL CAPSULE by mouth twice a day 2011 CEFDINIR 300 MG ORAL CAPSULE [id number] CEFDINIR Inactive PREDNISONE 20 MG ORAL TABLET 2 tabs daily for 3 days, 1 tab daily for 3 days, 1/2 tab daily for 2 days PREDNISONE 20 MG ORAL T ABLET [id number] PREDNISONE Inactive AVELOX 400 MG ORAL TABLET [...] days 11/07 PREDNISONE 20 MG ORAL TABLET [id number] PREDNISONE Inactive LEVAQUIN 500 MG ORAL TABLET take one po QD LEVAQUIN 500 MG ORAL TABLET 511636 LEVOFLOXACIN Inactive AZITHROMYCIN 250 MG ORAL TABLET 2 po qd x 1 day, then 1 po q d x 4 days AZITHROMYCIN 250 MG ORAL TABLET 480763 AZITHROMY GOIVANNI Inactive MEDROL 4 MG ORAL TABLET THERAPY PACK 6 tabs on day 1, 5 tabs on day 2, 4 tabs on day 3, 3 tabs on day 4, 2 tabs on day 5, 1 tab on day 6 2013 MEDROL 4 MG ORAL TABLET THERAPY PACK 213615 METHYLPREDNISOLONE [place] [facility] CHERATUSSIN AC 100-10 MG/5ML ORAL SYRUP 5ml po q6hr PRN Cough 20 13/04/14 CHERATUSSIN AC 100-10 MG/5ML ORAL SYRUP 399299 GUAIFENE SIN-CODEINE Inactive TRIAMCINOLONE ACETONIDE 0.1 % EXTERNAL CREAM apply three roger es daily prn rash TRIAMCINOLONE ACETONIDE 0.1 % EXTERNAL CREAM 101 4314 TRIAMCINOLONE ACETONIDE Inactive AZITHROMYCIN 250 MG ORAL TABLET 2 po qd x 1 day, then 1 po q d x 4 days AZITHROMYCIN 250 MG ORAL TABLET 347363 AZITHROMY GIOVANNI Inactive MEDROL 4 MG ORAL TABLET THERAPY PACK 6 pills x 1 day, then 5 pills x 1 day then 4 pills x 1 day, then 3 pills x 1 day, then 2 pills x 1 day, then 1 pill x 1 day, then stop MEDROL 4 MG ORAL TABLET THERAPY PACK 441301 METHYLPREDNISOLONE Inactive AMOXICILLIN 500 MG ORAL CAPSULE 1 tab by mouth 3 times daily x 10 days AMOXICILLIN 500 MG ORAL CAPSULE 567810 AMOXICILL IN Inactive AMOXICILLIN 500 MG ORAL CAPSULE 1 tab by mouth 3 times daily x 10 days AMOXICILLIN 500 MG ORAL CAPSULE 895760 AMOXICILL IN Inactive ZITHROMAX 250 MG ORAL TABLET 2 po today, then 1 po q days 2-5 20 12/08/14 ZITHROMAX 250 MG ORAL TABLET 210438 AZITHROMYCIN [place] [facility] AUGMENTIN 875-125 MG ORAL TABLET 1 po BID x 10 days 20 13/01/20 AUGMENTIN 875-125 MG ORAL TABLET AMOXICILLIN-POT CLAVULANATE Inactive ZITHROMAX Z-REYNA 250 MG ORAL TABLET 2 today, then 1 daily for 4 d ays ZITHROMAX Z-REYNA 250 MG ORAL TABLET 470206 AZITHROMYCIN Inactive ZITHROMAX 250 MG ORAL TABLET 2 po today, then 1 po q days 2-5 20 14/03/21 ZITHROMAX 250 MG ORAL TABLET 225880 AZITHROMYCIN [place] [facility] ZITHROMAX Z-REYNA 250 MG ORAL TABLET 2 today, then 1 daily for 4 d ays ZITHROMAX Z-REYNA 250 MG ORAL TABLET 963477 AZITHROMYCIN Inactive CEFDINIR 300 MG ORAL CAPSULE 1 po BID x 10 days 06/21 CEFDINIR 300 MG ORAL CAPSULE 129520 CEFDINIR Inactive ZITHROMAX 250 MG ORAL TABLET 2 po today, then 1 po q days 2-5 20 13/08/10 ZITHROMAX 250 MG ORAL TABLET 916507 AZITHROMYCIN [place] [facility] LEVAQUIN 500 MG ORAL TABLET 1 tablet by mouth daily 20 13/09/24 LEVAQUIN 500 MG ORAL TABLET 19971102 LEVOFLOXACIN Inactive SINGULAIR 10 MG ORAL TABLET 1 po qday for allergies 20 14/01/12 SINGULAIR 10 MG ORAL TABLET 20010504 MONTELUKAST SODIUM Inactive AMOXICILLIN 500 MG ORAL CAPSULE 2 po BID x 10 days 201 09/29/08 AMOXICILLIN 500 MG ORAL CAPSULE 379390 AMOXICILLIN Inactive PREDNISONE 20 MG ORAL TABLET 2 tabs daily for 3 days, 1 tab daily for 3 days, 1/2 tab daily for 2 days PREDNISONE 20 MG ORAL T ABLET 493673 PREDNISONE Inactive ZITHROMAX Z-REYNA 250 MG ORAL TABLET 2 today, then 1 daily for 4 d ays ZITHROMAX Z-REYNA 250 MG ORAL TABLET 027104 AZITHROMYCIN Inactive PREDNISONE 20 MG ORAL TABLET 2 tabs daily for 3 days, 1 tab daily for 3 days, 1/2 tab daily for 2 days PREDNISONE 20 MG ORAL T ABLET 866700 PREDNISONE Inactive ZITHROMAX 250 MG ORAL TABLET 2 po today, then 1 po q days 2-5 20 14/09/04 ZITHROMAX 250 MG ORAL TABLET 160923 AZITHROMYCIN [place] [facility] AMOXICILLIN 500 MG ORAL CAPSULE 1 cap by mouth three times a day AMOXICILLIN 500 MG ORAL CAPSULE 805363 AMOXICILLIN Inactive TERBINAFINE HCL 250 MG ORAL TABLET 1 qDay for nail fungus 7 TERBINAFINE HCL 250 MG ORAL TABLET 553647 TERBINAFINE HCL Inact nael AUGMENTIN 875-125 MG ORAL TABLET 1 po BID x 10 days 20 16/03/22 AUGMENTIN 875-125 MG ORAL TABLET AMOXICILLIN-POT CLAVULANATE Inactive PREDNISONE 20 MG ORAL TABLET 2 po qd x 5 days PREDNISONE 20 MG ORAL TABLET 294572 PREDNISONE Inactive AZITHROMYCIN 250 MG ORAL TABLET 2 po qd x 1 day, then 1 po q d x 4 days AZITHROMYCIN 250 MG ORAL TABLET 407690 AZITHROMY GIOVANNI Inactive PREDNISONE 50 MG ORAL TABLET Take 50 mg dialy for 6 day s 7 PREDNISONE 50 MG ORAL TABLET 831323 PREDNISONE Inactive AUGMENTIN 875-125 MG ORAL TABLET 1 po BID x 10 days 20 18/04/16 AUGMENTIN 875-125 MG ORAL TABLET AMOXICILLIN-POT CLAVULANATE Inactive DOXYCYCLINE HYCLATE 100 MG ORAL CAPSULE 1 cap by mouth twice latasha ly DOXYCYCLINE HYCLATE 100 MG ORAL CAPSULE 2192953 DOXYCYCL INE HYCLATE Inactive PREDNISONE 20 MG ORAL TABLET Take 2 tabs day 1 and 2 and 1 t ab days 3 and 4 PREDNISONE 20 MG ORAL TABLET 291434 PREDNISONE Inactive AMOXICILLIN 500 MG ORAL CAPSULE 1 cap by mouth twice daily 10/21 AMOXICILLIN 500 MG ORAL CAPSULE 771034 AMOXICILLIN Inactive TRIAMCINOLONE ACETONIDE 0.1 % EXTERNAL OINTMENT Apply to affected areas TID PRN Rash/Itching for up 2 weeks TRIAMCINOLON E ACETONIDE 0.1 % EXTERNAL OINTMENT 6274865 TRIAMCINOLONE ACETONIDE Inactive ACYCLOVIR 800 MG ORAL TABLET 1 po 5 times daily x 7 days ACYCLOVIR 800 MG ORAL TABLET 495134 ACYCLOVIR Inactive Vital Signs Date Name Value [...] - Chem istry sodium, serum 139 mmol/L 302-346 7802/10/12 potassium, serum 3.8 mmol/L 3.5-5.2 chloride, serum [...] negative Encounters Code Encounter Date Provider Facility CPT-68199 Level 3 Est. Patient 14:16:41 CDT David Tin dle [facility] CPT-19263 Level 3 Est. Patient 13:57:55 CDT David Tin dle [facility] CPT-88119 Level 3 Est. Patient 16:08:07 CDT David Tin dle [facility] CPT-61758 Level 3 Est. Patient 16:53:54 CDT J Livan haas MD [facility]-52167 [id number] Vst-Est Level IV 08:41:[address] Carlton Hu MD [facility] CPT-53056 Level 3 Est. Patient 09:46:49 [employer] David Antonino riverae [facility]-16906 [id number] Vst-Est Level III 11:12:16 CDT Yanet Bess DO [facility] CPT-28873 Level 3 Est. Patient 11:34:49 [employer] Perez Mora MD [facility] CPT-96015 Level 4 Est. Patient 09:51:32 [employer] Carlton rich MD [facility] CPT-26109 Level 3 Est. Patient 10:26:00 [employer] Elise stephenson [facility] CPT-50051 Level 3 Est. Patient 13:35:41 [employer] Carlton rich MD [facility] CPT-20859 Level 3 Est. Patient 10:03:52 [employer] Carlton rich MD [facility] CPT-76601 Level 3 Est. Patient 12:17:50 CDT Hugo Restrepo MD [facility] CPT-83691 Level 3 Est. Patient 13:42:38 CDT Elise Are ll [facility] CPT-65894 Level 3 Est. Patient 13:23:51 CDT Diya Mariana mango [facility] CPT-47479 Level 3 Est. Patient 14:22:19 [employer] WORK[employer] Diya cobian [facility] CPT-49305 Level 3 Est. Patient 10:11:46 CDT Carlton rich MD [facility] CPT-30067 Level 3 Est. Patient 17:29:43 CDT Elise Are [facility] [place] CPT-80282 Level 3 Est. Patient 11:58:06 CDT Elise Are [facility] [place] [facility] CPT-26901 Level 4 Est. Patient 14:36:51 CDT Carlton rich MD [facility] CPT-55462 Level 3 Est. Patient 18:16:00 [employer] WORK[employer] Blaine HERNANDEZ [facility] CPT-13107 Level 3 Est. Patient 09:45:49 [employer] WORK[employer] Carlton rich MD [facility] CPT-81141 Level 3 Est. Patient 13:19:20 CDT Carlton rich MD [facility] CPT-03484 Level 3 Est. Patient 13:06:43 CDT Ridge tam DO [facility] CPT-26808 Level 3 Est. Patient 10:03:07 CDT Perez Mora MD [facility] CPT-76759 Level 3 Est. Patient 19:50:35 [employer] Carlton rich MD [facility] CPT-30267 Level 4 Est. Patient 18:05:01 [employer] WORK[employer] Carlton rich MD [facility] CPT-25469 Level 3 Est. Patient 10:45:55 [employer] WORK[employer] Hugo Restrepo MD [facility] [place]-95512 Level 3 Est. Patient 14:12:49 CDT Griffin HERNANDEZ [facility] [place]-42779 Level 3 Est. Patient 17:37:24 CDT Carlton rich MD [facility] [place]-24966 Level 3 Est. Patient 16:51:54 CDT Carlton rich MD [facility] [place]-64492 Level 3 Est. Patient 12:18:11 CDT Hugo Restrepo MD [facility] [place]-85822 Level 3 Est. Patient 11:30:25 CDT Marcy crisostomo MD PhD [facility] [place]-51719 Level 3 Est. Patient 12:00:47 [employer] WORK[employer] Carlton rich MD [facility] [place]-67440 Level 3 Est. Patient 16:31:06 [employer] WORK[employer] Carlton rich MD [facility] [place]-05590 Level 3 Est. Patient 16:23:24 [employer] WORKER Ridge tam DO [facility] CPT-20103 Level 3 Est. Patient 12:34:12 CDT Carlton rich MD [facility] [place]-03391 Level 2 Est. Patient 15:43:33 CDT Robi armstrong MD [facility]-67919 Level 4 Est. Patient 14:04:44 CDT Carlton rich MD [facility] [place]-47839 Level 3 Est. Patient 05:47:59 CDT Ridge tam [facility]-06191 Level 3 Est. Patient 13:12:53 [employer] WORK[employer] Carlton rich MD [facility] CPT-39382 Level 3 Est. Patient 14:26:53 CDT Hugo Restrepo MD [facility] Procedures Code Procedure Name [...] CPT-J1100 Decadron 6mg (Dexamethasone) 14:32:13 CDT 2 CPT-34823 Hip bilat min 2V w AP pelvis 13:16:20 CDT 2 CPT-44693 Pelvis only 13:07:33 CDT CPT-98523 Spec Collection and Handling Fee 11:25:12 C DT CPT-91113 Fluzone Quadrivalent Intramuscular Suspe nsion 0.5 ML 14:31:55 CDT CPT-68569 Abx/Therapy Injection 13:28:47 [employer] WORK[employer] CPT-J2930 Solu Medrol 125 mg (Methyl Prednisolone Sodium Succinate) 12:00:47 [employer] WORK[employer] CPT-97679 Venipuncture Draw Fee 11:33:31 CDT CPT-81013 EKG Trac and Interp 11:21:09 CDT CPT-06496 Chest 2V Frontal and Lat 11:21:09 CDT 12/15 CPT-17392 Venipuncture Draw Fee 08:02:34 CDT CPT-06337 Chest 2V Frontal and Lat 05:47:59 CDT 06/05
--- OUTSIDE RECORDS SUMMARY | 2019-10-08 10:06 | XMS REPORT | Clinical Summary ---
Author Author Caitlin, Juliana Martinez Organization [employer] [facility] Address Unknown Phone Unavailable Allergies, Adverse [...] URI 465.9 Inactive Ridge Bess DO Ac cherokee upper respiratory infections of unspecified site Body Mass Index 35.0-35.9 Adult Refinement 2017 Ridge Bess DO Body Mass Index 35.0-35.9, adult BMI 34-34.9 Refinement Cherelle Torres RN Body Mass Index 35.0-35.9, adult BMI 35-35.9 Refinement David Marianneamisha RICEN Body Mass Index 35.0-35.9, adult BMI 34-34.9 Refinement May Vivar MD Body Mass Index 35.0-35.9, adult BMI 35-35.9 Refinement David Marianne [employer] Body Mass Index 35.0-35.9, adult BMI 33-33.9 Active David Marianne [employer] Body Mass Index 35.0-35.9, adult Upper respiratory [...] nonspecific skin eruption 782.1 Active David Marianne [employer] Rash and other nonspecific skin eruption Pharyngitis, acute / sore throat 462 Active 201 12/06/23 David Marianne [employer] Acute pharyngitis Shingles 053.9 Active David Marianne [employer] Herpes zoster without mention of complication BRONCHITIS ICD-490 Inactive Hugo Restrepo MD 201 04/09/17 MAXILLARY SINUSITIS ICD-473.0 Inactive Marcy De La Rosa MD PhD BRONCHITIS, ACUTE WITH MILD BRONCHOSPASM ICD-466.0 Inactive Marcy De La Rosa MD PhD DYSPNEA ICD-786.05 Inactive Mracy De La Rosa MD P HEALTH SCREENING [...] CODEINE #3 300-30 MG ORAL TABLET ACETAMINOPHEN-CODEINE 80413277898 Active David Marianne [employer] A ctive TRIAMCINOLONE ACETONIDE 0.1 % EXTERNAL CREAM apply bid spari ngly to rash TRIAMCINOLONE ACETONIDE 81998060949 Active David Marianne [employer] Active TYLENOL WITH CODEINE #3 300-30 MG ORAL TABLET 1-2 po q6hr PRN Pa in ACETAMINOPHEN-CODEINE 37207057426 No Longer Active David Marianne AP RN Active ACYCLOVIR 800 MG ORAL TABLET 1 po 5 times daily x 7 days ACYCLOVIR 64791352888 No Longer Active David Marianne [employer] Active TOPAMAX 100 MG ORAL TABLET 1 by mouth twice daily TOPIRAMATE 27217092587 Active Columba Raida Active TRIAMCINOLONE ACETONIDE 0.1 % EXTERNAL OINTMENT Apply to affected areas TID PRN Rash/Itching for up 2 weeks TRIAMCINOLONE ACETON KAYLA 25704960442 No Longer Active David Marianne [employer] Active AMOXICILLIN 500 MG ORAL CAPSULE 1 cap by mouth twice daily 10/21 AMOXICILLIN 04178314326 No Longer Active David Marianne [employer] Active ELMIRON 100 MG ORAL CAPSULE 2 capsules in the morning and 1 capsule at night PENTOSAN POLYSULFATE SODIUM 36355024389 Active Cinthia H art PIERCER Active CYMBALTA 30 MG ORAL CAPSULE DELAYED RELEASE PARTICLES 1 cap by mouth daily for depression DULOXETINE HCL 54649757305 No Longer Active Carlton Hu MD Active CYMBALTA 60 MG ORAL CAPSULE DELAYED RELEASE PARTICLES 1 cap by mouth daily for mood and pain DULOXETINE HCL 04883057072 Active Carlton Hu MD Active TUSSIONEX PENNKINETIC ER 10-8 MG/5ML ORAL SUSPENSION E XTENDED RELEASE 5ml po q12hr PRN Cough HYDROCOD POLST-CHLORPHEN POLST 14243775624 Active David Marianne [employer] Active PREDNISONE 20 MG ORAL TABLET Take 2 tabs day 1 and 2 and 1 t ab days 3 and 4 PREDNISONE 07543392441 No Longer Active David Marianne [employer] Active DOXYCYCLINE HYCLATE 100 MG ORAL CAPSULE 1 cap by mouth twice latasha ly DOXYCYCLINE HYCLATE 09211966086 No Longer Active David Marianne [employer] Active TOPAMAX 100 MG ORAL TABLET Take 1 tablet po bid TOPIRAMATE 46483617586 No Longer Active David Marianne [employer] Active TUSSIONEX PENNKINETIC ER 10-8 MG/5ML ORAL SUSPENSION E XTENDED RELEASE 5ml po q12hr PRN Cough HYDROCOD POLST-CHLORPHEN POLST 5 0029183775 No Longer Active David Marianne [employer] Active AUGMENTIN 875-125 MG ORAL TABLET 1 po BID x 10 days 18/04/16 AMOXICILLIN-POT CLAVULANATE 51234426703 No Longer Active David Marianne [employer] Active PREDNISONE 50 MG ORAL TABLET Take 50 mg dialy for 6 day s 7 PREDNISONE 54504910500 No Longer Active David Marianne [employer] Active TUSSIONEX PENNKINETIC ER 10-8 MG/5ML ORAL SUSPENSION E XTENDED RELEASE 5ml po q12hr PRN Cough HYDROCOD POLST-CHLORPHEN POLST 5 0650515164 No Longer Active Cherelle Torres RN Active PREDNISONE 20 MG ORAL TABLET two tabs by mouth today, then one tab by mouth days two and three and four PREDNISONE 85177611989 No Lo nger Active Cherelle Torres RN Active AZITHROMYCIN 250 MG ORAL TABLET 2 po qd x 1 day, then 1 po q d x 4 days AZITHROMYCIN 69078265553 No Longer Active Ridge Bess DO Active PREDNISONE 20 MG ORAL TABLET 2 po qd x 5 days P REDNISONE 56996362179 No Longer Active Perez Mora MD Active PROAIR HFA 108 (90 BASE) MCG/ACT INHALATION AEROSOL SO LUTION 2 puffs four times a day as needed ALBUTEROL SULFATE 64769510625 No Long er Active Becky FUENTES Active ASPIRIN 81 MG ORAL TABLET 1 po qd ASPIRIN 77213139049 Active Carlton Hu MD Active PREDNISONE 20 MG ORAL TABLET 1 tab twice daily for 3 d ay, then one daily for three days PREDNISONE 64480764636 No Longer Active Carlton Hu MD Active AUGMENTIN 875-125 MG ORAL TABLET 1 po BID x 10 days 16/03/22 AMOXICILLIN-POT CLAVULANATE 33262879063 No Longer Active Elise Garcia APRN Active TERBINAFINE HCL 250 MG ORAL TABLET 1 qDay for nail fungus 7 TERBINAFINE HCL 83663671211 No Longer Active Carlton Hu MD A ctive AMOXICILLIN 500 MG ORAL CAPSULE 1 cap by mouth three times a day AMOXICILLIN 73905333579 No Longer Active Carlton Hu MD Active ELMIRON 100 MG ORAL CAPSULE 2 tablets in the am and 1 tablet at hs PENTOSAN POLYSULFATE SODIUM 77747648650 No Longer Active Robert Hu MD Active MUCINEX D 60-600 MG ORAL TABLET EXTENDED RELEASE 12 HOUR 1 t ab po q am PSEUDOEPHEDRINE-GUAIFENESIN 43999820280 No Longer Act nael Carlton Hu MD Active MUCINEX DM MAXIMUM STRENGTH 60-1200 MG ORAL TABLET EXT ENDED RELEASE 12 HOUR 1 tab po q am DEXTROMETHORPHAN-GUAIFENESIN 41442807493 No Longer Active Carlton Hu MD Active TUSSIONEX PENNKINETIC ER 10-8 MG/5ML ORAL SUSPENSION E XTENDED RELEASE 5ml po q12hr PRN Cough HYDROCOD POLST-CHLORPHEN POLST 5 0204005071 No Longer Active Carlton Hu MD Active POTASSIUM CHLORIDE ER 20 MEQ ORAL TABLET EXTENDED RELE ASE Take 1 by mouth 4 times daily for 7 days POTASSIUM CHLORIDE 81067829471 No Longer Active Carlton Hu MD Active ZITHROMAX 250 MG ORAL TABLET 2 po today, then 1 po q days 2-5 20 14/09/04 AZITHROMYCIN 46474683421 No Longer Active Elise Garcia APRN Active TUSSIONEX PENNKINETIC ER 10-8 MG/5ML ORAL SUSPENSION E XTENDED RELEASE 5 ml twice a day as needed for cough HYDROCOD POLST-CHLORPH EN POLST 41434897966 No Longer Active Elise Garcia APRN Active MONTELUKAST SODIUM 10 MG ORAL TABLET 1 po daily for Allergy MONTELUKAST SODIUM 20097357820 Active Carlton Hu MD Ac tive TUSSIONEX PENNKINETIC ER 10-8 MG/5ML ORAL SUSPENSION E XTENDED RELEASE 5ml po q12hr PRN Cough HYDROCOD POLST-CHLORPHEN POLST 5 3575319603 No Longer Active Hugo Restrepo MD Active GABAPENTIN 100 MG ORAL CAPSULE 1 po BID for fibromyalgia GABAPENTIN 62163233898 Active ALFREDO Holly Active LYRICA 100 MG ORAL CAPSULE Take 1 tab po BID for fibromyalgia 20 11/08/21 PREGABALIN 73208869672 No Longer Active Elise Garcia APRN A ctive PREDNISONE 20 MG ORAL TABLET 2 tabs daily for 3 days, 1 tab daily for 3 days, 1/2 tab daily for 2 days PREDNISONE 03146953249 No Longer Active Diya De Guzman APRN Active TUSSIONEX PENNKINETIC ER 10-8 MG/5ML ORAL SUSPENSION E XTENDED RELEASE 5 mL PO q 12 hrs PRN cough HYDROCOD POLST-CHLORPHEN POLST 077578 26487 No Longer Active Diya De Guzman [employer] Active FLUTICASONE PROPIONATE 50 MCG/ACT NASAL SUSPENSION 2 s prays each nostril daily until bottle is empty FLUTICASONE PROPIONATE 857176089 99 No Longer Active Jillina Cesarl [employer]ER [employer] Active ASMANEX 60 METERED DOSES 220 MCG/INH INHALATION AEROSO L POWDER BREATH ACTIVATED 1 puff bid with rinse after MOMETASONE FUROATE 7473497 4102 No Longer Active Venullina Gege [employer] Active ZITHROMAX Z-REYNA 250 MG ORAL TABLET 2 today, then 1 daily for 4 d ays AZITHROMYCIN 03416645897 No Longer Active Elise Garcia APRN Active TUSSIONEX PENNKINETIC ER 10-8 MG/5ML ORAL SUSPENSION E XTENDED RELEASE 5ml po q12hr PRN Cough HYDROCOD POLST-CHLORPHEN POLST 5 2518694179 No Longer Active Elise Garcia APRN Active PREDNISONE 20 MG ORAL TABLET 2 tabs daily for 3 days, 1 tab daily for 3 days, 1/2 tab daily for 2 days PREDNISONE 11424765803 No Longer Active Diya De Guzman APRN Active AMOXICILLIN 500 MG ORAL CAPSULE 2 po BID x 10 days 201 09/29/08 AMOXICILLIN 68675428777 No Longer Active Diya De Guzman APRN Act nael SINGULAIR 10 MG ORAL TABLET 1 po qday for allergies 20 14/01/12 MONTELUKAST SODIUM 68884195139 No Longer Active Carlton Hu MD Active LEVAQUIN 500 MG ORAL TABLET 1 tablet by mouth daily 20 13/09/24 LEVOFLOXACIN 44762137544 No Longer Active Carlton Hu MD Acti ve FLUTICASONE PROPIONATE 50 MCG/ACT NASAL SUSPENSION 2 s prays each nostril daily for 2 weeks, then 1 spray each nostril daily. FLUTICASONE PROPIONATE 85389764850 Active Carlton Hu MD Active ZITHROMAX 250 MG ORAL TABLET 2 po today, then 1 po q days 2-5 20 13/08/10 AZITHROMYCIN 83460253680 No Longer Active Elise Arell [employer] Active XANAX 0.5 MG ORAL TABLET one tablet by mouth daily prn anxiety 2015 ALPRAZOLAM 91558735451 Active ALFREDO Holly Active CEFDINIR 300 MG ORAL CAPSULE 1 po BID x 10 days CEFDINIR 79894722740 No Longer Active Carlton Hu MD Active ZOCOR 40 MG ORAL TABLET 1 tab by mouth daily SI MVASTATIN 78937615129 No Longer Active Cartlon Hu MD Active CYCLOBENZAPRINE HCL 10 MG ORAL TABLET 1 tablet by mouth BID prn had pain CYCLOBENZAPRINE HCL 14363438771 No Longer Active Jayden Hu MD Active LEVOFLOXACIN 500 MG ORAL TABLET 1 tab PO daily x 10 days LEVOFLOXACIN 06042975469 No Longer Active Carlton Hu MD Acti ve PREDNISONE 20 MG ORAL TABLET 3 tab PO qd x 2d, 2 tab P O qd x 2d, 1 tab PO qd x 2d, 1/2 tab PO qd x 2d PREDNISONE 46992688138 No Lo nger Active Carlton Hu MD Active FLUTICASONE PROPIONATE 50 MCG/ACT NASAL SUSPENSION 1 t o 2 sprays each nostril daily FLUTICASONE PROPIONATE 52066578592 No Longer Ac tive Blaine HERNANDEZ Active CHERATUSSIN AC 100-10 MG/5ML ORAL SYRUP 1 tsp by mouth every 4 hours as needed for cough GUAIFENESIN-CODEINE 03475399042 No Longe r Active Blaine HERNANDEZ Active PROMETHAZINE-CODEINE 6.25-10 MG/5ML ORAL SYRUP 1 tsp b y mouth every 6 hours if needed for cough PROMETHAZINE-CODEINE 10754420600 No Longer Active Blaine HERNANDEZ Active CHERATUSSIN AC 100-10 MG/5ML ORAL SYRUP 1 tsp by mouth every 4 hours as needed for cough GUAIFENESIN-CODEINE 31059787364 No Longe r Active Blaine HERNANDEZ Active ZITHROMAX Z-REYNA 250 MG ORAL TABLET 2 today, then 1 daily for 4 d ays AZITHROMYCIN 57944607590 No Longer Active Columba Raida Act nael ZITHROMAX 250 MG ORAL TABLET 2 po today, then 1 po q days 2-5 20 14/03/21 AZITHROMYCIN 20424672946 No Longer Active Carlton Hu MD Active ZITHROMAX Z-REYNA 250 MG ORAL TABLET 2 today, then 1 daily for 4 d ays AZITHROMYCIN 25691285357 No Longer Active Columba Raida Act nale AUGMENTIN 875-125 MG ORAL TABLET 1 po BID x 10 days 13/01/20 AMOXICILLIN-POT CLAVULANATE 38912654595 No Longer Active Diya De Guzman APRN Active ZITHROMAX 250 MG ORAL TABLET 2 po today, then 1 po q days 2-5 20 12/08/14 AZITHROMYCIN 08528661126 No Longer Active Carlton Hu MD Active TRAMADOL HCL 50 MG ORAL TABLET 1 po tid with ES Tylenol TRAMADOL HCL 91820140655 Active Carlton Hu MD Active PREMARIN 0.625 MG ORAL TABLET TAKE 1 TAB BY MOUTH DAILY ESTROGENS CONJUGATED 82199022323 No Longer Active Ridge Bess DO A ctive CYMBALTA 30 MG ORAL CAPSULE DELAYED RELEASE PARTICLES 1 cap by mouth daily DULOXETINE HCL 61729586643 No Longer Active Ridge Ya ee DO Active AMOXICILLIN 500 MG ORAL CAPSULE 1 tab by mouth 3 times daily x 10 days AMOXICILLIN 36448543458 No Longer Active Carlton bustamante MD Active AMOXICILLIN 500 MG ORAL CAPSULE 1 tab by mouth 3 times daily x 10 days AMOXICILLIN 74696921149 No Longer Active Carlton bustamante MD Active PROMETHAZINE-CODEINE 6.25-10 MG/5ML ORAL SYRUP 1 tsp b y mouth every 8 hours prn cough PROMETHAZINE-CODEINE 00957257565 No Longer Acti ve Carlton Hu MD Active MEDROL 4 MG ORAL TABLET THERAPY PACK 6 pills x 1 day, then 5 pills x 1 day then 4 pills x 1 day, then 3 pills x 1 day, then 2 pills x 1 day, then 1 pill x 1 day, then stop METHYLPREDNISOLONE 17487824240 No Long er Active Perez Mora MD Active AZITHROMYCIN 250 MG ORAL TABLET 2 po qd x 1 day, then 1 po q d x 4 days AZITHROMYCIN 09048598224 No Longer Active Perez Ambriz MD Active SYMBICORT 160-4.5 MCG/ACT INHALATION AEROSOL 2 puffs bid wit h rinse after BUDESONIDE-FORMOTEROL FUMARATE 93343453813 N o Longer Active Perez Mora MD Active LYRICA 75 MG ORAL CAPSULE TAKE 1 CAPSULE BY MOUTH TWICE DAILY PREGABALIN 57777067234 No Longer Active Carlton Hu MD Acti ve TOPAMAX 25 MG ORAL TABLET 1 qHS x 1 week, then 1 BID x 1 week, then 1 qAM and 2 qHS x 1 week, then 2 BID (migraine prevention) T OPIRAMATE 12167470372 No Longer Active Jerica FUENTES Active TOPAMAX 50 MG ORAL TABLET take 1 tab po BID for migraines. 07/02 TOPIRAMATE 98121619652 No Longer Active Jerica FUENTES Active TRIAMCINOLONE ACETONIDE 0.1 % EXTERNAL CREAM apply three roger es daily prn rash TRIAMCINOLONE ACETONIDE 35350548154 No Longer Active Carlton Hu MD Active PAXIL 40 MG ORAL TABLET take 1 tab po qday for depression 0 PAROXETINE HCL 37469908872 Active Carlton Hu MD Active CHERATUSSIN AC 100-10 MG/5ML ORAL SYRUP 5ml po q6hr PRN Cough 20 13/04/14 GUAIFENESIN-CODEINE 05697774406 No Longer Active Carlton Hu MD Active MEDROL 4 MG ORAL TABLET THERAPY PACK 6 tabs on day 1, 5 tabs on day 2, 4 tabs on day 3, 3 tabs on day 4, 2 tabs on day 5, 1 tab on day 6 2013 METHYLPREDNISOLONE 66652169532 No Longer Active Perez Mora MD Active AZITHROMYCIN 250 MG ORAL TABLET 2 po qd x 1 day, then 1 po q d x 4 days AZITHROMYCIN 86447199039 No Longer Active Perez Ambriz MD Active PROPRANOLOL HCL 60 MG ORAL TABLET 1 PO Q D PROPRANOLOL HCL 14956610934 No Longer Active Perez Mora MD Activ e CHERATUSSIN AC 100-10 MG/5ML ORAL SYRUP take one tsp po Q 6h ours prn cough GUAIFENESIN-CODEINE 88987931262 No Longer Active Zia Mora MD Active AUGMENTIN 875-125 MG ORAL TABLET 1 tab by mouth twice daily with food AMOXICILLIN-POT CLAVULANATE 61806049207 No Longer Act nael Perez Mora MD Active CHERATUSSIN AC 100-10 MG/5ML ORAL SYRUP 1 tsp by mouth every 4 hours as needed for cough GUAIFENESIN-CODEINE 66139844315 No Longe r Active Hugo Restrepo MD Active ACETAMINOPHEN-CODEINE #3 300-30 MG ORAL TABLET 1 PO Q 4-6 HRS WI N PAIN ACETAMINOPHEN-CODEINE 84397975970 No Longer Active Hugo Restrepo MD Active LEVAQUIN 500 MG ORAL TABLET take one po QD LEVO FLOXACIN 36452905939 No Longer Active Griffin HERNANDEZ Active PREDNISONE 20 MG ORAL TABLET Take 3 tabs daily for 3 d ays, 2 tabs daily for 3 days, 1 tab daily for 3 days, 1/2 tab daily for 3 days 11/07 PREDNISONE 31336896250 No Longer Active Carlton Hu MD Acti ve AVELOX 400 MG ORAL TABLET 1 tab by mouth daily MOXIFLOXACIN HCL 80830350840 No Longer Active Carlton Hu MD Active CHERATUSSIN AC 100-10 MG/5ML ORAL SYRUP 1 tsp by mouth every 4 hours as needed for cough GUAIFENESIN-CODEINE 73961993053 No Longe r Active Hugo Restrepo MD Active AVELOX 400 MG ORAL TABLET 1 tab by mouth daily MOXIFLOXACIN HCL 23833184319 No Longer Active Marcy De La Rosa MD PhD Active TERBINAFINE HCL 250 MG ORAL TABLET 1 qDay T ERBINAFINE HCL 38728043018 No Longer Active Marcy De La Rosa MD PhD Active CHERATUSSIN AC 100-10 MG/5ML ORAL SYRUP 1 tsp by mouth every 4 hours as needed for cough GUAIFENESIN-CODEINE 76260092030 No Longe r Active Marcy De La Rosa MD PhD Active AVELOX 400 MG ORAL TABLET 1 tab by mouth daily MOXIFLOXACIN HCL 60344460820 No Longer Active Marcy De La Rosa MD PhD Active HYDROCODONE-ACETAMINOPHEN 5-325 MG ORAL TABLET 1 po q 6hr PRN co ugh HYDROCODONE-ACETAMINOPHEN 21908152715 No Longer Active Marcy De La Rosa MD PhD Active PREDNISONE 20 MG ORAL TABLET 2 tabs daily for 3 days, 1 tab daily for 3 days, 1/2 tab daily for 2 days PREDNISONE 89345084703 No Longer Active Carlton Hu MD Active CEFDINIR 300 MG ORAL CAPSULE by mouth twice a day 2011 CEFDINIR 96310713419 No Longer Active Carlton Hu MD Acti ve HYDROCHLOROTHIAZIDE 25 MG ORAL TABLET 1 TAB PO DAILY HYDROCHLOROTHIAZIDE 24700088141 Active Carlton Hu MD A ctive ACETAMINOPHEN-CODEINE #3 300-30 MG ORAL TABLET 1 tablet po q 4-6 hrs prn pain ACETAMINOPHEN-CODEINE 16742731412 No Longer Active Ridge Bess DO Active ZITHROMAX 250 MG ORAL TABLET 2 po today, then 1 po q days 2-5 20 03/07/07 AZITHROMYCIN 02472591190 No Longer Active Carlton Hu MD Active CHERATUSSIN AC 100-10 MG/5ML ORAL SYRUP take 1 tsp po q4-6 h ours prn cough GUAIFENESIN-CODEINE 65230759401 No Longer Active Jayden Hu MD Active ACETAMINOPHEN-CODEINE #3 300-30 MG ORAL TABLET 1 PO Q 4-6 HR PRN PAIN ACETAMINOPHEN-CODEINE 87131448251 No Longer Active Da raimundo Hu MD Active LORTAB 7.5-500 MG/15ML ORAL ELIXIR 7.5 ml po q 4 hour prn cough HYDROCODONE-ACETAMINOPHEN 56371714263 No Longer Active Carlton Hu MD Active PREDNISONE 20 MG ORAL TABLET 1 po bid 3 days, then 1 po q day 3 days PREDNISONE 91345842673 No Longer Active Carlton Hu MD Active CEFDINIR 300 MG ORAL CAPSULE by mouth twice a day 2011 CEFDINIR 22873039867 No Longer Active Carlton Hu MD Acti ve CEFDINIR 300 MG ORAL CAPSULE by mouth twice a day 2010 CEFDINIR 18910535189 No Longer Active Carlton Hu MD Acti ve CEFDINIR 300 MG ORAL CAPSULE by mouth twice a day 2010 CEFDINIR 04523621027 No Longer Active Carlton Hu MD Acti ve TESSALON PERLES 100 MG ORAL CAPSULE 1 tablet by mouth 3 times daily as needed for cough BENZONATATE 48867803043 No Longer Active Carlton Hu MD Active CEFDINIR 300 MG ORAL CAPSULE by mouth twice a day 2010 CEFDINIR 60282589946 No Longer Active Carlton Hu MD Acti ve ZITHROMAX Z-REYNA 250 MG ORAL TABLET 2 today, then 1 daily for 4 d ays AZITHROMYCIN 83491224341 No Longer Active Hugo Restrepo MD Active TESSALON PERLES 100 MG ORAL CAPSULE 1 tablet by mouth 3 times daily as needed for cough TESSALON PERLES 100 MG ORAL CAPSULE 62212 7 BENZONATATE Inactive PREDNISONE 20 MG ORAL TABLET 1 po bid 3 days, then 1 po q day 3 days PREDNISONE 20 MG ORAL TABLET 338003 PREDNISONE Greer ctive LORTAB 7.5-500 MG/15ML ORAL [...] cough CHERATUSSIN AC 100-10 MG/5ML ORAL SYRUP 022126 GUAIFENESIN-CODEINE Inactive ACETAMINOPHEN-CODEINE #3 300-30 MG ORAL TABLET 1 tablet po q 4-6 hrs prn pain ACETAMINOPHEN-CODEINE #3 300-30 MG ORAL TABLET ACETAMINOPHEN-CODEINE Inactive HYDROCODONE-ACETAMINOPHEN 5-325 MG ORAL TABLET 1 po q 6hr PRN co ugh HYDROCODONE-ACETAMINOPHEN 5-325 MG ORAL TABLET 612441 HYDROCODONE-ACETAMINOPHEN Inactive AVELOX 400 MG ORAL TABLET 1 tab by mouth daily AVELOX 400 MG ORAL TABLET MOXIFLOXACIN HCL Inactive CHERATUSSIN AC 100-10 MG/5ML ORAL SYRUP 1 tsp by mouth every 4 hours as needed for cough CHERATUSSIN AC 100-10 MG/5ML ORAL SYRUP 9 63067 GUAIFENESIN-CODEINE Inactive TERBINAFINE HCL 250 MG ORAL TABLET 1 qDay 07/08 TERBINAFINE HCL 250 MG ORAL TABLET 450598 TERBINAFINE HCL Inactive CHERATUSSIN AC 100-10 MG/5ML ORAL SYRUP 1 tsp by mouth every 4 hours as needed for cough CHERATUSSIN AC 100-10 MG/5ML ORAL SYRUP 9 19614 GUAIFENESIN-CODEINE Inactive ACETAMINOPHEN-CODEINE #3 300-30 MG ORAL TABLET 1 PO Q 4-6 HRS WI N PAIN ACETAMINOPHEN-CODEINE #3 300-30 MG ORAL TABLET ACETAMINOPHEN-CODEINE Inactive CHERATUSSIN AC 100-10 MG/5ML ORAL SYRUP 1 tsp by mouth every 4 hours as needed for cough CHERATUSSIN AC 100-10 MG/5ML ORAL SYRUP 9 61346 GUAIFENESIN-CODEINE Inactive AUGMENTIN 875-125 MG ORAL TABLET 1 tab by mouth twice daily with food AUGMENTIN 875-125 MG ORAL TABLET AMOXICIL MADELINE-POT CLAVULANATE Inactive CHERATUSSIN AC 100-10 MG/5ML ORAL SYRUP take one tsp po Q 6h ours prn cough CHERATUSSIN AC 100-10 MG/5ML ORAL SYRUP 022643 GUAIFENESIN-CODEINE Inactive PROPRANOLOL HCL 60 MG ORAL TABLET 1 PO Q D PROPRANOLOL HCL 60 MG ORAL TABLET 008316 PROPRANOLOL HCL Inactive TOPAMAX 50 MG ORAL TABLET take 1 tab po BID for migraines. 07/02 TOPAMAX 50 MG ORAL TABLET 302198 TOPIRAMATE Inacti ve TOPAMAX 25 MG ORAL TABLET 1 qHS x 1 week, then 1 BID x 1 week, then 1 qAM and 2 qHS x 1 week, then 2 BID (migraine prevention) TOPAMAX 25 MG ORAL TABLET 332296 TOPIRAMATE Inactive LYRICA 75 MG ORAL CAPSULE TAKE 1 CAPSULE BY MOUTH TWICE DAILY LYRICA 75 MG ORAL CAPSULE 602400 PREGABALIN Inactive SYMBICORT 160-4.5 MCG/ACT INHALATION AEROSOL 2 puffs bid wit h rinse after SYMBICORT 160-4.5 MCG/ACT INHALATION AEROSOL BUDESONIDE- FORMOTEROL FUMARATE Inactive PROMETHAZINE-CODEINE 6.25-10 MG/5ML ORAL SYRUP 1 tsp b y mouth every 8 hours prn cough PROMETHAZINE-CODEINE 6.25-10 MG/ 5ML ORAL SYRUP 387100 PROMETHAZINE-CODEINE Inactive CYMBALTA 30 MG ORAL CAPSULE DELAYED RELEASE PARTICLES 1 cap by mouth daily CYMBALTA 30 MG ORAL CAPSULE DELAYED RELE ASE PARTICLES 421620 DULOXETINE HCL Inactive PREMARIN 0.625 MG ORAL TABLET TAKE 1 TAB BY MOUTH DAILY PREMARIN 0.625 MG ORAL TABLET ESTROGENS CONJUGATED Inactive CHERATUSSIN AC 100-10 MG/5ML ORAL SYRUP 1 tsp by mouth every 4 hours as needed for cough CHERATUSSIN AC 100-10 MG/5ML ORAL SYRUP 9 65794 GUAIFENESIN-CODEINE Inactive PROMETHAZINE-CODEINE 6.25-10 MG/5ML ORAL SYRUP 1 tsp b y mouth every 6 hours if needed for cough PROMETHAZINE-CODEINE 6.25-10 MG/5ML ORAL SYRUP 703647 PROMETHAZINE-CODEINE Inactive CHERATUSSIN AC 100-10 MG/5ML ORAL SYRUP 1 tsp by mouth every 4 hours as needed for cough CHERATUSSIN AC 100-10 MG/5ML ORAL SYRUP 9 58038 GUAIFENESIN-CODEINE Inactive FLUTICASONE PROPIONATE 50 MCG/ACT NASAL SUSPENSION 1 t o 2 sprays each nostril daily FLUTICASONE PROPIONATE 50 MCG/AC T NASAL SUSPENSION 1323927 FLUTICASONE PROPIONATE Inactive PREDNISONE 20 MG ORAL TABLET 3 tab PO qd x 2d, 2 tab P O qd x 2d, 1 tab PO qd x 2d, 1/2 tab PO qd x 2d PREDNISONE 20 MG ORAL TAB LET 127644 PREDNISONE Inactive LEVOFLOXACIN 500 MG ORAL TABLET 1 tab PO daily x 10 days LEVOFLOXACIN 500 MG ORAL TABLET 313455 LEVOFLOXACIN Inactive CYCLOBENZAPRINE HCL 10 MG ORAL TABLET 1 tablet by mouth BID prn had pain CYCLOBENZAPRINE HCL 10 MG ORAL TABLET 973285 CYCLOBENZAPRINE HCL Inactive ZOCOR 40 MG ORAL TABLET 1 tab by mouth daily 4 ZOCOR 40 MG ORAL TABLET 147145 SIMVASTATIN Inactive TUSSIONEX PENNKINETIC ER 10-8 MG/5ML [...] FLUTICASONE PROPIO EFE 50 MCG/ACT NASAL SUSPENSION 5582659 FLUTICASONE PROPIONATE Inactive TUSSIONEX PENNKINETIC ER 10-8 MG/5ML ORAL SUSPENSION E XTENDED RELEASE 5 mL PO q 12 hrs PRN cough TUSSIONEX PENNKINETI C ER 10-8 MG/5ML ORAL SUSPENSION EXTENDED RELEASE HYDROCOD POLST-CHLORPHEN POLST I nactive LYRICA 100 MG ORAL CAPSULE Take 1 tab po BID for fibromyalgia 20 11/08/21 LYRICA 100 MG ORAL CAPSULE 592517 PREGABALIN Inact nael TUSSIONEX PENNKINETIC ER 10-8 [...] three days PREDNISONE 20 MG ORAL TABLET 094574 PREDNIS ONE Inactive PROAIR HFA 108 (90 BASE) MCG/ACT INHALATION AEROSOL SO LUTION 2 puffs four times a day as needed PROAIR HFA 108 (90 B ASE) MCG/ACT INHALATION AEROSOL SOLUTION ALBUTEROL SULFATE Inactive PREDNISONE 20 MG ORAL TABLET two tabs by mouth today, then one tab by mouth days two and three and four PREDNISONE 20 MG ORAL TAB LET 284176 PREDNISONE Inactive TUSSIONEX PENNKINETIC ER 10-8 MG/5ML [...] bid 04/20 TOPAMAX 100 MG ORAL TABLET 768659 TOPIRAMATE Inactive CYMBALTA 30 MG ORAL CAPSULE DELAYED RELEASE PARTICLES 1 cap by mouth daily for depression CYMBALTA 30 MG ORAL CAPSULE DELAYED RELEASE PARTICLES 858255 DULOXETINE HCL Inactive TYLENOL WITH CODEINE #3 300-30 MG ORAL TABLET 1-2 po q6hr PRN Pa in TYLENOL WITH CODEINE #3 300-30 MG ORAL TABLET ACETAMINOPHEN-CODEINE Inactive ZITHROMAX Z-REYNA 250 MG ORAL TABLET 2 today, then 1 daily for 4 d ays ZITHROMAX Z-REYNA 250 MG ORAL TABLET 951686 AZITHROMYCIN Inactive CEFDINIR 300 MG ORAL CAPSULE by mouth twice a day 2010 CEFDINIR 300 MG ORAL CAPSULE 109718 CEFDINIR Inactive CEFDINIR 300 MG ORAL CAPSULE by mouth twice a day 2010 CEFDINIR 300 MG ORAL CAPSULE 880200 CEFDINIR Inactive CEFDINIR 300 MG ORAL CAPSULE by mouth twice a day 2010 CEFDINIR 300 MG ORAL CAPSULE 176613 CEFDINIR Inactive CEFDINIR 300 MG ORAL CAPSULE by mouth twice a day 2011 CEFDINIR 300 MG ORAL CAPSULE 899129 CEFDINIR Inactive ZITHROMAX 250 MG ORAL TABLET 2 po today, then 1 po q days 2-5 03/07/07 ZITHROMAX 250 MG ORAL TABLET 495000 AZITHROMYCIN [facility] CEFDINIR 300 MG ORAL CAPSULE by mouth twice a day 2011 CEFDINIR 300 MG ORAL CAPSULE 20020704 CEFDINIR Inactive PREDNISONE 20 MG ORAL TABLET 2 tabs daily for 3 days, 1 tab daily for 3 days, 1/2 tab daily for 2 days [facility] PREDNISONE Inactive AVELOX 400 MG ORAL TABLET [...] days 11/07 PREDNISONE 20 MG ORAL TABLET 134232 PREDNISONE Inactive LEVAQUIN 500 MG ORAL TABLET take one po QD LEVAQUIN 500 MG ORAL TABLET 148816 LEVOFLOXACIN Inactive AZITHROMYCIN 250 MG ORAL TABLET 2 po qd x 1 day, then 1 po q d x 4 days AZITHROMYCIN 250 MG ORAL TABLET 839117 AZITHROMY GIOVANNI Inactive MEDROL 4 MG ORAL TABLET THERAPY PACK 6 tabs on day 1, 5 tabs on day 2, 4 tabs on day 3, 3 tabs on day 4, 2 tabs on day 5, 1 tab on day 6 2013 MEDROL 4 MG ORAL TABLET THERAPY PACK 159455 METHYLPREDNISOLONE [facility] CHERATUSSIN AC 100-10 MG/5ML ORAL SYRUP 5ml po q6hr PRN Cough 20 13/04/14 CHERATUSSIN AC 100-10 MG/5ML ORAL SYRUP 791992 GUAIFENE SIN-CODEINE Inactive TRIAMCINOLONE ACETONIDE 0.1 % EXTERNAL CREAM apply three roger es daily prn rash TRIAMCINOLONE ACETONIDE 0.1 % EXTERNAL CREAM 101 4314 TRIAMCINOLONE ACETONIDE Inactive AZITHROMYCIN 250 MG ORAL TABLET 2 po qd x 1 day, then 1 po q d x 4 days AZITHROMYCIN 250 MG ORAL TABLET 937456 AZITHROMY GIOVANNI Inactive MEDROL 4 MG ORAL TABLET THERAPY PACK 6 pills x 1 day, then 5 pills x 1 day then 4 pills x 1 day, then 3 pills x 1 day, then 2 pills x 1 day, then 1 pill x 1 day, then stop MEDROL 4 MG ORAL TABLET THERAPY PACK 274157 METHYLPREDNISOLONE Inactive AMOXICILLIN 500 MG ORAL CAPSULE 1 tab by mouth 3 times daily x 10 days AMOXICILLIN 500 MG ORAL CAPSULE 874946 AMOXICILL IN Inactive AMOXICILLIN 500 MG ORAL CAPSULE 1 tab by mouth 3 times daily x 10 days AMOXICILLIN 500 MG ORAL CAPSULE 846652 AMOXICILL IN Inactive ZITHROMAX 250 MG ORAL TABLET 2 po today, then 1 po q days 2-5 20 12/08/14 ZITHROMAX 250 MG ORAL TABLET 749331 AZITHROMYCIN [facility] AUGMENTIN 875-125 MG ORAL TABLET 1 po BID x 10 days 20 13/01/20 AUGMENTIN 875-125 MG ORAL TABLET AMOXICILLIN-POT CLAVULANATE Inactive ZITHROMAX Z-REYNA 250 MG ORAL TABLET 2 today, then 1 daily for 4 d ays ZITHROMAX Z-REYNA 250 MG ORAL TABLET 260376 AZITHROMYCIN Inactive ZITHROMAX 250 MG ORAL TABLET 2 po today, then 1 po q days 2-5 20 14/03/21 ZITHROMAX 250 MG ORAL TABLET 551480 AZITHROMYCIN [facility] ZITHROMAX Z-REYNA 250 MG ORAL TABLET 2 today, then 1 daily for 4 d ays ZITHROMAX Z-REYNA 250 MG ORAL TABLET 768589 AZITHROMYCIN Inactive CEFDINIR 300 MG ORAL CAPSULE 1 po BID x 10 days 06/21 CEFDINIR 300 MG ORAL CAPSULE 717805 CEFDINIR Inactive ZITHROMAX 250 MG ORAL TABLET 2 po today, then 1 po q days 2-5 20 13/08/10 ZITHROMAX 250 MG ORAL TABLET 160333 AZITHROMYCIN [facility] LEVAQUIN 500 MG ORAL TABLET 1 tablet by mouth daily 20 13/09/24 LEVAQUIN 500 MG ORAL TABLET 19971102 LEVOFLOXACIN Inactive SINGULAIR 10 MG ORAL TABLET 1 po qday for allergies 20 14/01/12 SINGULAIR 10 MG ORAL TABLET 20010504 MONTELUKAST SODIUM Inactive AMOXICILLIN 500 MG ORAL CAPSULE 2 po BID x 10 days 201 09/29/08 AMOXICILLIN 500 MG ORAL CAPSULE 989292 AMOXICILLIN Inactive PREDNISONE 20 MG ORAL TABLET 2 tabs daily for 3 days, 1 tab daily for 3 days, 1/2 tab daily for 2 days PREDNISONE 20 MG ORAL T ABLET 653786 PREDNISONE Inactive ZITHROMAX Z-REYNA 250 MG ORAL TABLET 2 today, then 1 daily for 4 d ays ZITHROMAX Z-REYNA 250 MG ORAL TABLET 817614 AZITHROMYCIN Inactive PREDNISONE 20 MG ORAL TABLET 2 tabs daily for 3 days, 1 tab daily for 3 days, 1/2 tab daily for 2 days PREDNISONE 20 MG ORAL T ABLET 374511 PREDNISONE Inactive ZITHROMAX 250 MG ORAL TABLET 2 po today, then 1 po q days 2-5 20 14/09/04 ZITHROMAX 250 MG ORAL TABLET 521139 AZITHROMYCIN [facility] AMOXICILLIN 500 MG ORAL CAPSULE 1 cap by mouth three times a day AMOXICILLIN 500 MG ORAL CAPSULE 971812 AMOXICILLIN Inactive TERBINAFINE HCL 250 MG ORAL TABLET 1 qDay for nail fungus 7 TERBINAFINE HCL 250 MG ORAL TABLET 281002 TERBINAFINE HCL Inact nael AUGMENTIN 875-125 MG ORAL TABLET 1 po BID x 10 days 20 16/03/22 AUGMENTIN 875-125 MG ORAL TABLET AMOXICILLIN-POT CLAVULANATE Inactive PREDNISONE 20 MG ORAL TABLET 2 po qd x 5 days PREDNISONE 20 MG ORAL TABLET 366362 PREDNISONE Inactive AZITHROMYCIN 250 MG ORAL TABLET 2 po qd x 1 day, then 1 po q d x 4 days AZITHROMYCIN 250 MG ORAL TABLET 109267 AZITHROMY GIOVANNI Inactive PREDNISONE 50 MG ORAL TABLET Take 50 mg dialy for 6 day s 7 PREDNISONE 50 MG ORAL TABLET 917767 PREDNISONE Inactive AUGMENTIN 875-125 MG ORAL TABLET 1 po BID x 10 days 20 18/04/16 AUGMENTIN 875-125 MG ORAL TABLET AMOXICILLIN-POT CLAVULANATE Inactive DOXYCYCLINE HYCLATE 100 MG ORAL CAPSULE 1 cap by mouth twice latasha ly DOXYCYCLINE HYCLATE 100 MG ORAL CAPSULE 6722282 DOXYCYCL INE HYCLATE Inactive PREDNISONE 20 MG ORAL TABLET Take 2 tabs day 1 and 2 and 1 t ab days 3 and 4 PREDNISONE 20 MG ORAL TABLET 237487 PREDNISONE Inactive AMOXICILLIN 500 MG ORAL CAPSULE 1 cap by mouth twice daily 10/21 AMOXICILLIN 500 MG ORAL CAPSULE 095615 AMOXICILLIN Inactive TRIAMCINOLONE ACETONIDE 0.1 % EXTERNAL OINTMENT Apply to affected areas TID PRN Rash/Itching for up 2 weeks TRIAMCINOLON E ACETONIDE 0.1 % EXTERNAL OINTMENT 9185936 TRIAMCINOLONE ACETONIDE Inactive ACYCLOVIR 800 MG ORAL TABLET 1 po 5 times daily x 7 days ACYCLOVIR 800 MG ORAL TABLET 514192 ACYCLOVIR Inactive Vital Signs Date Name Value [...] negative Encounters Code Encounter Date Provider Facility CPT-54834 Level 3 Est. Patient 14:16:41 CDT David Tin dle [facility] [place] CPT-90913 Level 3 Est. Patient 13:57:55 CDT David Tin dle [facility] [place] CPT-58969 Level 3 Est. Patient 16:08:07 CDT David Tin dle [facility] [place] CPT-92481 Level 3 Est. Patient 16:53:54 CDT J Livan haas MD [facility]-56432 [id number] Vst-Est Level IV 08:41:[address] Carlton Hu MD [facility] CPT-05494 Level 3 Est. Patient 09:46:49 [employer] David riverae [facility] [place] CPT-61423 [id number] Vst-Est Level III 11:12:16 CDT Yanet Bess DO [facility] CPT-26974 Level 3 Est. Patient 11:34:49 [employer] Perez Mora MD [facility] CPT-79929 Level 4 Est. Patient 09:51:32 [employer] Carlton rich MD [facility] CPT-85024 Level 3 Est. Patient 10:26:00 [employer] Elise stephenson [facility] [place] CPT-01941 Level 3 Est. Patient 13:35:41 [employer] Carlton rich MD [facility] CPT-21910 Level 3 Est. Patient 10:03:52 [employer] Carlton rich MD [facility] CPT-02513 Level 3 Est. Patient 12:17:50 CDT Hugo Restrepo MD [facility] CPT-49919 Level 3 Est. Patient 13:42:38 CDT Elise Are ll [facility] [place] CPT-65711 Level 3 Est. Patient 13:23:51 CDT Diya Mariana mango [facility] [place] CPT-86597 Level 3 Est. Patient 14:22:19 [employer] Diya cobian [facility] [place] CPT-15712 Level 3 Est. Patient 10:11:46 CDT Carlton rich MD [facility] CPT-70718 Level 3 Est. Patient 17:29:43 CDT Elise Are ll [facility] [place] CPT-08651 Level 3 Est. Patient 11:58:06 CDT Elise Are [facility] CPT-35789 Level 4 Est. Patient 14:36:51 CDT Carlton rich MD [facility] CPT-40282 Level 3 Est. Patient 18:16:00 [employer] Blaine HERNANDEZ [facility] CPT-50450 Level 3 Est. Patient 09:45:49 [employer] Carlton rich MD [facility] CPT-04605 Level 3 Est. Patient 13:19:20 CDT Carlton rich MD [facility] CPT-70577 Level 3 Est. Patient 13:06:43 CDT Ridge tam DO [facility] CPT-79155 Level 3 Est. Patient 10:03:07 CDT Perez Mora MD [facility] CPT-24021 Level 3 Est. Patient 19:50:35 [employer] Carlton rich MD [facility] CPT-91680 Level 4 Est. Patient 18:05:01 [employer] Carlton rich MD [facility]-49685 Level 3 Est. Patient 10:45:55 [employer] Hugo Restrepo MD [facility]-12869 Level 3 Est. Patient 14:12:49 CDT Griffin HERNANDEZ [facility]-46580 Level 3 Est. Patient 17:37:24 CDT Carlton rich MD [facility]-59597 Level 3 Est. Patient 16:51:54 CDT Carlton rich MD [facility]-76356 Level 3 Est. Patient 12:18:11 CDT Hugo Restrepo MD [facility]-27785 Level 3 Est. Patient 11:30:25 CDT Marcy crisostomo MD PhD [facility]-99655 Level 3 Est. Patient 12:00:47 [employer] Carlton rich MD [facility]-27731 Level 3 Est. Patient 16:31:06 [employer] Carlton rich MD [facility]-13389 Level 3 Est. Patient 16:23:24 [employer] Ridge tam DO [facility]-26619 Level 3 Est. Patient 12:34:12 CDT Carlton rich MD [facility]-13958 Level 2 Est. Patient 15:43:33 CDT Robi armstrong MD [facility]-39112 Level 4 Est. Patient 14:04:44 CDT Carlton rich MD [facility]-97578 Level 3 Est. Patient 05:47:59 CDT Ridge tam [facility]-41744 Level 3 Est. Patient 13:12:53 [employer] Carlton rich MD [facility] CPT-59649 Level 3 Est. Patient 14:26:53 CDT Hugo [...] CPT-J1100 Decadron 6mg (Dexamethasone) 14:32:13 CDT 2 CPT-22042 Hip bilat min 2V w AP pelvis 13:16:20 CDT 2 CPT-21104 Pelvis only 13:07:33 CDT CPT-23890 Spec Collection and Handling Fee 11:25:12 C DT CPT-69014 Fluzone Quadrivalent Intramuscular Suspe nsion 0.5 ML 14:31:55 CDT CPT-28932 Abx/Therapy Injection 13:28:47 [employer] CPT-J2930 Solu Medrol 125 mg (Methyl Prednisolone Sodium Succinate) 12:00:47 [employer] CPT-93370 Venipuncture Draw Fee 11:33:31 CDT CPT-88530 EKG Trac and Interp 11:21:09 CDT CPT-94018 Chest 2V Frontal and Lat 11:21:09 CDT 12/15 CPT-75488 Venipuncture Draw Fee 08:02:34 CDT CPT-57987 Chest 2V Frontal and Lat 05:47:59 CDT 06/05
--- OUTSIDE RECORDS SUMMARY | 2019-10-08 10:07 | XMS REPORT | Clinical Summary ---
[...] URI 465.9 Inactive Ridge Bess DO Ac [place] upper respiratory infections of unspecified site Body Mass Index 35.0-35.9 Adult Refinement 2017 Ridge Bess DO Body Mass Index 35.0-35.9, adult BMI 34-34.9 Refinement Cherelle Torres RN Body Mass Index 35.0-35.9, adult BMI 35-35.9 Refinement David Marianneamisha RICEN Body Mass Index 35.0-35.9, adult BMI 34-34.9 Refinement May Vivar MD Body Mass Index 35.0-35.9, adult BMI 35-35.9 Refinement David Marianne [employer] Body Mass Index 35.0-35.9, adult BMI 33-33.9 Active David Marianne [employer] Body Mass Index 35.0-35.9, adult Upper respiratory infection, viral 465.9 Active 2 Perez Mora MD Acute upper respiratory infections of un specified site Obesity Class I (BMI 30-34.9) Refinement Jose Torres RN Obesity, unspecified Morbid obesity due to excess calories [facility] David Marianneamisha RICEN Obesity, unspecified Obesity Class II (BMI 35-39.9) Refinement Robert Hu MD Obesity, unspecified Obesity Class I (BMI 30-34.9) Refinement aMy Vivar MD Obesity, unspecified Obesity Class II (BMI 35-39.9) Refinement Ran dy Marianne KHAN Obesity, unspecified Obesity Class I (BMI 30-34.9) Active David T faustinole BILL Obesity, unspecified Hypertension, systolic 401.9 Active Carlton bustamante MD Unspecified essential hypertension Interstitial Cystitis 595.1 Active May lorenz MD Chronic interstitial cystitis Rash and other nonspecific skin eruption 782.1 Active David Marianne [employer] Rash and other nonspecific skin eruption Pharyngitis, acute / sore throat 462 Active 201 12/06/23 David Marianne [employer] Acute pharyngitis Shingles 053.9 Active David Marianne [employer] Herpes zoster without mention of complication BRONCHITIS [...] CODEINE #3 300-30 MG ORAL TABLET ACETAMINOPHEN-CODEINE 88027565505 Active David Marianne [employer] A ctive TRIAMCINOLONE ACETONIDE 0.1 % EXTERNAL CREAM apply bid spari ngly to rash TRIAMCINOLONE ACETONIDE 21774142779 Active David Marianne [employer] Active TYLENOL WITH CODEINE #3 300-30 MG ORAL TABLET 1-2 po q6hr PRN Pa in ACETAMINOPHEN-CODEINE 51880175901 No Longer Active David Marianne AP RN Active ACYCLOVIR 800 MG ORAL TABLET 1 po 5 times daily x 7 days ACYCLOVIR 07333481775 No Longer Active David Marianne [employer] Active TOPAMAX 100 MG ORAL TABLET 1 by mouth twice daily TOPIRAMATE 18744702253 Active Columba Raida Active TRIAMCINOLONE ACETONIDE 0.1 % EXTERNAL OINTMENT Apply to affected areas TID PRN Rash/Itching for up 2 weeks TRIAMCINOLONE ACETON KAYLA 98336751941 No Longer Active David Marianne [employer] Active AMOXICILLIN 500 MG ORAL CAPSULE 1 cap by mouth twice daily 10/21 AMOXICILLIN 51357862828 No Longer Active David Marianne [employer] Active ELMIRON 100 MG ORAL CAPSULE 2 capsules in the morning and 1 capsule at night PENTOSAN POLYSULFATE SODIUM 19633556044 Active Cinthia H art [employer] Active CYMBALTA 30 MG ORAL CAPSULE DELAYED RELEASE PARTICLES 1 cap by mouth daily for depression DULOXETINE HCL 59823031952 No Longer Active aCrlton Hu MD Active CYMBALTA 60 MG ORAL CAPSULE DELAYED RELEASE PARTICLES 1 cap by mouth daily for mood and pain DULOXETINE HCL 52961391976 Active Carlton Hu MD Active TUSSIONEX PENNKINETIC ER 10-8 MG/5ML ORAL SUSPENSION E XTENDED RELEASE 5ml po q12hr PRN Cough HYDROCOD POLST-CHLORPHEN POLST 45176485048 Active David Marianne [employer] Active PREDNISONE 20 MG ORAL TABLET Take 2 tabs day 1 and 2 and 1 t ab days 3 and 4 PREDNISONE 95927029258 No Longer Active Daivd Marianne [employer] Active DOXYCYCLINE HYCLATE 100 MG ORAL CAPSULE 1 cap by mouth twice latasha ly DOXYCYCLINE HYCLATE 60772876056 No Longer Active David Marianne [employer] Active TOPAMAX 100 MG ORAL TABLET Take 1 tablet po bid TOPIRAMATE 39814082783 No Longer Active David Marianne [employer] Active TUSSIONEX PENNKINETIC ER 10-8 MG/5ML ORAL SUSPENSION E XTENDED RELEASE 5ml po q12hr PRN Cough HYDROCOD POLST-CHLORPHEN POLST 5 6350890466 No Longer Active David Marianne [employer] Active AUGMENTIN 875-125 MG ORAL TABLET 1 po BID x 10 days 18/04/16 AMOXICILLIN-POT CLAVULANATE 00442927713 No Longer Active David Marianne [employer] Active PREDNISONE 50 MG ORAL TABLET Take 50 mg dialy for 6 day s 7 PREDNISONE 38723998114 No Longer Active David Marianne [employer] Active TUSSIONEX PENNKINETIC ER 10-8 MG/5ML ORAL SUSPENSION E XTENDED RELEASE 5ml po q12hr PRN Cough HYDROCOD POLST-CHLORPHEN POLST 5 0288850615 No Longer Active Cherelle Torres RN Active PREDNISONE 20 MG ORAL TABLET two tabs by mouth today, then one tab by mouth days two and three and four PREDNISONE 23473792848 No Lo nger Active Cherelle Torres RN Active AZITHROMYCIN 250 MG ORAL TABLET 2 po qd x 1 day, then 1 po q d x 4 days AZITHROMYCIN 83387334091 No Longer Active Ridge Bess DO Active PREDNISONE 20 MG ORAL TABLET 2 po qd x 5 days P REDNISONE 81863500433 No Longer Active Perez Mora MD Active PROAIR HFA 108 (90 BASE) MCG/ACT INHALATION AEROSOL SO LUTION 2 puffs four times a day as needed ALBUTEROL SULFATE 70245182221 No Long er Active Becky FUENTES Active ASPIRIN 81 MG ORAL TABLET 1 po qd ASPIRIN 46440013959 Active Carlton Hu MD Active PREDNISONE 20 MG ORAL TABLET 1 tab twice daily for 3 d ay, then one daily for three days PREDNISONE 36733239669 No Longer Active Carlton Hu MD Active AUGMENTIN 875-125 MG ORAL TABLET 1 po BID x 10 days 16/03/22 AMOXICILLIN-POT CLAVULANATE 94987515038 No Longer Active Elise Garcia APRN Active TERBINAFINE HCL 250 MG ORAL TABLET 1 qDay for nail fungus 7 TERBINAFINE HCL 26756033362 No Longer Active Carlton Hu MD A ctive AMOXICILLIN 500 MG ORAL CAPSULE 1 cap by mouth three times a day AMOXICILLIN 02671403322 No Longer Active Carlton Hu MD Active ELMIRON 100 MG ORAL CAPSULE 2 tablets in the am and 1 tablet at hs PENTOSAN POLYSULFATE SODIUM 39740043904 No Longer Active Robert Hu MD Active MUCINEX D 60-600 MG ORAL TABLET EXTENDED RELEASE 12 HOUR 1 t ab po q am PSEUDOEPHEDRINE-GUAIFENESIN 51875622062 No Longer Act nael Carlton Hu MD Active MUCINEX DM MAXIMUM STRENGTH 60-1200 MG ORAL TABLET EXT ENDED RELEASE 12 HOUR 1 tab po q am DEXTROMETHORPHAN-GUAIFENESIN 35501067626 No Longer Active Carlton Hu MD Active TUSSIONEX PENNKINETIC ER 10-8 MG/5ML ORAL SUSPENSION E XTENDED RELEASE 5ml po q12hr PRN Cough HYDROCOD POLST-CHLORPHEN POLST 5 3455990876 No Longer Active Carlton Hu MD Active POTASSIUM CHLORIDE ER 20 MEQ ORAL TABLET EXTENDED RELE ASE Take 1 by mouth 4 times daily for 7 days POTASSIUM CHLORIDE 79521785356 No Longer Active Carlton Hu MD Active ZITHROMAX 250 MG ORAL TABLET 2 po today, then 1 po q days 2-5 20 14/09/04 AZITHROMYCIN 23189815919 No Longer Active Elise Garcia APRN Active TUSSIONEX PENNKINETIC ER 10-8 MG/5ML ORAL SUSPENSION E XTENDED RELEASE 5 ml twice a day as needed for cough HYDROCOD POLST-CHLORPH EN POLST 19115982776 No Longer Active Elise Garcia APRN Active MONTELUKAST SODIUM 10 MG ORAL TABLET 1 po daily for Allergy MONTELUKAST SODIUM 63126065171 Active Carlton Hu MD Ac tive TUSSIONEX PENNKINETIC ER 10-8 MG/5ML ORAL SUSPENSION E XTENDED RELEASE 5ml po q12hr PRN Cough HYDROCOD POLST-CHLORPHEN POLST 5 8878683935 No Longer Active Hugo Restrepo MD Active GABAPENTIN 100 MG ORAL CAPSULE 1 po BID for fibromyalgia GABAPENTIN 13224959585 Active ALFREDO Holly Active LYRICA 100 MG ORAL CAPSULE Take 1 tab po BID for fibromyalgia 20 11/08/21 PREGABALIN 13092183537 No Longer Active Elise Garcia APRN A ctive PREDNISONE 20 MG ORAL TABLET 2 tabs daily for 3 days, 1 tab daily for 3 days, 1/2 tab daily for 2 days PREDNISONE 75359341122 No Longer Active Diya De Guzman APRN Active TUSSIONEX PENNKINETIC ER 10-8 MG/5ML ORAL SUSPENSION E XTENDED RELEASE 5 mL PO q 12 hrs PRN cough HYDROCOD POLST-CHLORPHEN POLST 539013 01884 No Longer Active Diya De Guzman [employer] Active FLUTICASONE PROPIONATE 50 MCG/ACT NASAL SUSPENSION 2 s prays each nostril daily until bottle is empty FLUTICASONE PROPIONATE 747792240 99 No Longer Active Jillina Cesarl [employer] Active ASMANEX 60 METERED DOSES 220 MCG/INH INHALATION AEROSO L POWDER BREATH ACTIVATED 1 puff bid with rinse after MOMETASONE FUROATE 9345848 4102 No Longer Active Venullina Gege [employer] Active ZITHROMAX Z-REYNA 250 MG ORAL TABLET 2 today, then 1 daily for 4 d ays AZITHROMYCIN 36891556066 No Longer Active Elise Garcia APRN Active TUSSIONEX PENNKINETIC ER 10-8 MG/5ML ORAL SUSPENSION E XTENDED RELEASE 5ml po q12hr PRN Cough HYDROCOD POLST-CHLORPHEN POLST 5 3216847694 No Longer Active Elise Garcia APRN Active PREDNISONE 20 MG ORAL TABLET 2 tabs daily for 3 days, 1 tab daily for 3 days, 1/2 tab daily for 2 days PREDNISONE 23853081885 No Longer Active Diya De Guzman APRN Active AMOXICILLIN 500 MG ORAL CAPSULE 2 po BID x 10 days 201 09/29/08 AMOXICILLIN 01698055565 No Longer Active Diya De Guzman APRN Act nael SINGULAIR 10 MG ORAL TABLET 1 po qday for allergies 20 14/01/12 MONTELUKAST SODIUM 27972075371 No Longer Active Carlton Hu MD Active LEVAQUIN 500 MG ORAL TABLET 1 tablet by mouth daily 20 13/09/24 LEVOFLOXACIN 29910817830 No Longer Active Carlton Hu MD Acti ve FLUTICASONE PROPIONATE 50 MCG/ACT NASAL SUSPENSION 2 s prays each nostril daily for 2 weeks, then 1 spray each nostril daily. FLUTICASONE PROPIONATE 09990019673 Active Carlton Hu MD Active ZITHROMAX 250 MG ORAL TABLET 2 po today, then 1 po q days 2-5 20 13/08/10 AZITHROMYCIN 00873456571 No Longer Active Elise Arell [employer] Active XANAX 0.5 MG ORAL TABLET one tablet by mouth daily prn anxiety 2015 ALPRAZOLAM 76406683122 Active ALFREDO Holly Active CEFDINIR 300 MG ORAL CAPSULE 1 po BID x 10 days CEFDINIR 46522603315 No Longer Active Carlton Hu MD Active ZOCOR 40 MG ORAL TABLET 1 tab by mouth daily SI MVASTATIN 22116699682 No Longer Active Carlton Hu MD Active CYCLOBENZAPRINE HCL 10 MG ORAL TABLET 1 tablet by mouth BID prn had pain CYCLOBENZAPRINE HCL 99650663047 No Longer Active Jayden Hu MD Active LEVOFLOXACIN 500 MG ORAL TABLET 1 tab PO daily x 10 days LEVOFLOXACIN 96563891347 No Longer Active Carlton Hu MD Acti ve PREDNISONE 20 MG ORAL TABLET 3 tab PO qd x 2d, 2 tab P O qd x 2d, 1 tab PO qd x 2d, 1/2 tab PO qd x 2d PREDNISONE 79630261322 No Lo nger Active Carlton Hu MD Active FLUTICASONE PROPIONATE 50 MCG/ACT NASAL SUSPENSION 1 t o 2 sprays each nostril daily FLUTICASONE PROPIONATE 97711378718 No Longer Ac tive Blaine HERNANDEZ Active CHERATUSSIN AC 100-10 MG/5ML ORAL SYRUP 1 tsp by mouth every 4 hours as needed for cough GUAIFENESIN-CODEINE 27218133695 No Longe r Active Blaine HERNANDEZ Active PROMETHAZINE-CODEINE 6.25-10 MG/5ML ORAL SYRUP 1 tsp b y mouth every 6 hours if needed for cough PROMETHAZINE-CODEINE 19305559181 No Longer Active Blaine HERNANDEZ Active CHERATUSSIN AC 100-10 MG/5ML ORAL SYRUP 1 tsp by mouth every 4 hours as needed for cough GUAIFENESIN-CODEINE 52161697892 No Longe r Active Blaine HERNANDEZ Active ZITHROMAX Z-REYNA 250 MG ORAL TABLET 2 today, then 1 daily for 4 d ays AZITHROMYCIN 90353388579 No Longer Active Columba Raida Act nael ZITHROMAX 250 MG ORAL TABLET 2 po today, then 1 po q days 2-5 20 14/03/21 AZITHROMYCIN 92005532964 No Longer Active Carlton Hu MD Active ZITHROMAX Z-REYNA 250 MG ORAL TABLET 2 today, then 1 daily for 4 d ays AZITHROMYCIN 86133481266 No Longer Active Columba Raida Act nael AUGMENTIN 875-125 MG ORAL TABLET 1 po BID x 10 days 13/01/20 AMOXICILLIN-POT CLAVULANATE 40340905800 No Longer Active Diya De Guzman APRN Active ZITHROMAX 250 MG ORAL TABLET 2 po today, then 1 po q days 2-5 20 12/08/14 AZITHROMYCIN 43057759121 No Longer Active Carlton Hu MD Active TRAMADOL HCL 50 MG ORAL TABLET 1 po tid with ES Tylenol TRAMADOL HCL 36643926133 Active Carlton Hu MD Active PREMARIN 0.625 MG ORAL TABLET TAKE 1 TAB BY MOUTH DAILY ESTROGENS CONJUGATED 58241158772 No Longer Active Ridge Bess DO A ctive CYMBALTA 30 MG ORAL CAPSULE DELAYED RELEASE PARTICLES 1 cap by mouth daily DULOXETINE HCL 66282329581 No Longer Active Ridge Ya ee DO Active AMOXICILLIN 500 MG ORAL CAPSULE 1 tab by mouth 3 times daily x 10 days AMOXICILLIN 01811127667 No Longer Active Carlton bustamante MD Active AMOXICILLIN 500 MG ORAL CAPSULE 1 tab by mouth 3 times daily x 10 days AMOXICILLIN 07149005434 No Longer Active Carlton bustamante MD Active PROMETHAZINE-CODEINE 6.25-10 MG/5ML ORAL SYRUP 1 tsp b y mouth every 8 hours prn cough PROMETHAZINE-CODEINE 69942764571 No Longer Acti ve Carlton Hu MD Active MEDROL 4 MG ORAL TABLET THERAPY PACK 6 pills x 1 day, then 5 pills x 1 day then 4 pills x 1 day, then 3 pills x 1 day, then 2 pills x 1 day, then 1 pill x 1 day, then stop METHYLPREDNISOLONE 96397694984 No Long er Active Perez Mora MD Active AZITHROMYCIN 250 MG ORAL TABLET 2 po qd x 1 day, then 1 po q d x 4 days AZITHROMYCIN 12092510932 No Longer Active Perez Ambriz MD Active SYMBICORT 160-4.5 MCG/ACT INHALATION AEROSOL 2 puffs bid wit h rinse after BUDESONIDE-FORMOTEROL FUMARATE 22980358171 N o Longer Active Perez Mora MD Active LYRICA 75 MG ORAL CAPSULE TAKE 1 CAPSULE BY MOUTH TWICE DAILY PREGABALIN 21716432613 No Longer Active Carlton Hu MD Acti ve TOPAMAX 25 MG ORAL TABLET 1 qHS x 1 week, then 1 BID x 1 week, then 1 qAM and 2 qHS x 1 week, then 2 BID (migraine prevention) T OPIRAMATE 78625785308 No Longer Active Jerica FUENTES Active TOPAMAX 50 MG ORAL TABLET take 1 tab po BID for migraines. 07/02 TOPIRAMATE 44528549154 No Longer Active Jerica FUENTES Active TRIAMCINOLONE ACETONIDE 0.1 % EXTERNAL CREAM apply three roger es daily prn rash TRIAMCINOLONE ACETONIDE 17687337097 No Longer Active Carlton Hu MD Active PAXIL 40 MG ORAL TABLET take 1 tab po qday for depression 0 PAROXETINE HCL 09288277307 Active Carlton Hu MD Active CHERATUSSIN AC 100-10 MG/5ML ORAL SYRUP 5ml po q6hr PRN Cough 20 13/04/14 GUAIFENESIN-CODEINE 33608769000 No Longer Active Carlton Hu MD Active MEDROL 4 MG ORAL TABLET THERAPY PACK 6 tabs on day 1, 5 tabs on day 2, 4 tabs on day 3, 3 tabs on day 4, 2 tabs on day 5, 1 tab on day 6 2013 METHYLPREDNISOLONE 32712912941 No Longer Active Perez Mroa MD Active AZITHROMYCIN 250 MG ORAL TABLET 2 po qd x 1 day, then 1 po q d x 4 days AZITHROMYCIN 86184044378 No Longer Active Perez Ambriz MD Active PROPRANOLOL HCL 60 MG ORAL TABLET 1 PO Q D PROPRANOLOL HCL 79233918749 No Longer Active Perez Mora MD Activ e CHERATUSSIN AC 100-10 MG/5ML ORAL SYRUP take one tsp po Q 6h ours prn cough GUAIFENESIN-CODEINE 83369384689 No Longer Active Zia Mora MD Active AUGMENTIN 875-125 MG ORAL TABLET 1 tab by mouth twice daily with food AMOXICILLIN-POT CLAVULANATE 90526317911 No Longer Act nael Perez Mora MD Active CHERATUSSIN AC 100-10 MG/5ML ORAL SYRUP 1 tsp by mouth every 4 hours as needed for cough GUAIFENESIN-CODEINE 38835689552 No Longe r Active Hugo Restrepo MD Active ACETAMINOPHEN-CODEINE #3 300-30 MG ORAL TABLET 1 PO Q 4-6 HRS TX N PAIN ACETAMINOPHEN-CODEINE 10694621295 No Longer Active Hugo Restrepo MD Active LEVAQUIN 500 MG ORAL TABLET take one po QD LEVO FLOXACIN 02092597272 No Longer Active Griffin HERNANDEZ Active PREDNISONE 20 MG ORAL TABLET Take 3 tabs daily for 3 d ays, 2 tabs daily for 3 days, 1 tab daily for 3 days, 1/2 tab daily for 3 days 11/07 PREDNISONE 55752777292 No Longer Active Carlton Hu MD Acti ve AVELOX 400 MG ORAL TABLET 1 tab by mouth daily MOXIFLOXACIN HCL 15980236002 No Longer Active Carlton Hu MD Active CHERATUSSIN AC 100-10 MG/5ML ORAL SYRUP 1 tsp by mouth every 4 hours as needed for cough GUAIFENESIN-CODEINE 28397396874 No Longe r Active Hugo Restrepo MD Active AVELOX 400 MG ORAL TABLET 1 tab by mouth daily MOXIFLOXACIN HCL 57275366897 No Longer Active Marcy De La Rosa MD PhD Active TERBINAFINE HCL 250 MG ORAL TABLET 1 qDay T ERBINAFINE HCL 69637817499 No Longer Active Marcy De La Rosa MD PhD Active CHERATUSSIN AC 100-10 MG/5ML ORAL SYRUP 1 tsp by mouth every 4 hours as needed for cough GUAIFENESIN-CODEINE 19955971584 No Longe r Active Marcy De La Rosa MD PhD Active AVELOX 400 MG ORAL TABLET 1 tab by mouth daily MOXIFLOXACIN HCL 81936861409 No Longer Active Marcy De La Rosa MD PhD Active HYDROCODONE-ACETAMINOPHEN 5-325 MG ORAL TABLET 1 po q 6hr PRN co ugh HYDROCODONE-ACETAMINOPHEN 58617418939 No Longer Active Marcy De La Rosa MD PhD Active PREDNISONE 20 MG ORAL TABLET 2 tabs daily for 3 days, 1 tab daily for 3 days, 1/2 tab daily for 2 days PREDNISONE 77796342275 No Longer Active Carlton Hu MD Active CEFDINIR 300 MG ORAL CAPSULE by mouth twice a day 2011 CEFDINIR 13106903551 No Longer Active Carlton Hu MD Acti ve HYDROCHLOROTHIAZIDE 25 MG ORAL TABLET 1 TAB PO DAILY HYDROCHLOROTHIAZIDE 74135254877 Active Carlton Hu MD A ctive ACETAMINOPHEN-CODEINE #3 300-30 MG ORAL TABLET 1 tablet po q 4-6 hrs prn pain ACETAMINOPHEN-CODEINE 55766450084 No Longer Active Ridge Bess DO Active ZITHROMAX 250 MG ORAL TABLET 2 po today, then 1 po q days 2-5 20 03/07/07 AZITHROMYCIN 58724034830 No Longer Active Carlton Hu MD Active CHERATUSSIN AC 100-10 MG/5ML ORAL SYRUP take 1 tsp po q4-6 h ours prn cough GUAIFENESIN-CODEINE 64305936084 No Longer Active Jayden Hu MD Active ACETAMINOPHEN-CODEINE #3 300-30 MG ORAL TABLET 1 PO Q 4-6 HR PRN PAIN ACETAMINOPHEN-CODEINE 94143218858 No Longer Active Da raimundo Hu MD Active LORTAB 7.5-500 MG/15ML ORAL ELIXIR 7.5 ml po q 4 hour prn cough HYDROCODONE-ACETAMINOPHEN 91154994052 No Longer Active Carlton Hu MD Active PREDNISONE 20 MG ORAL TABLET 1 po bid 3 days, then 1 po q day 3 days PREDNISONE 86466597659 No Longer Active Carlton Hu MD Active CEFDINIR 300 MG ORAL CAPSULE by mouth twice a day 2011 CEFDINIR 48901823578 No Longer Active Carlton Hu MD Acti ve CEFDINIR 300 MG ORAL CAPSULE by mouth twice a day 2010 CEFDINIR 56268034493 No Longer Active Carlton Hu MD Acti ve CEFDINIR 300 MG ORAL CAPSULE by mouth twice a day 2010 CEFDINIR 12094743106 No Longer Active Carlton Hu MD Acti ve TESSALON PERLES 100 MG ORAL CAPSULE 1 tablet by mouth 3 times daily as needed for cough BENZONATATE 98377057641 No Longer Active Carlton Hu MD Active CEFDINIR 300 MG ORAL CAPSULE by mouth twice a day 2010 CEFDINIR 76521535254 No Longer Active Carlton Hu MD Acti ve ZITHROMAX Z-RYENA 250 MG ORAL TABLET 2 today, then 1 daily for 4 d ays AZITHROMYCIN 00133111141 No Longer Active Hugo Restrepo MD Active TESSALON PERLES 100 MG ORAL CAPSULE 1 tablet by mouth 3 times daily as needed for cough TESSALON PERLES 100 MG ORAL CAPSULE 65679 7 BENZONATATE Inactive PREDNISONE 20 MG ORAL TABLET 1 po bid 3 days, then 1 po q day 3 days PREDNISONE 20 MG ORAL TABLET 352280 PREDNISONE Greer ctive LORTAB 7.5-500 MG/15ML ORAL [...] cough CHERATUSSIN AC 100-10 MG/5ML ORAL SYRUP 814244 GUAIFENESIN-CODEINE Inactive ACETAMINOPHEN-CODEINE #3 300-30 MG ORAL TABLET 1 tablet po q 4-6 hrs prn pain ACETAMINOPHEN-CODEINE #3 300-30 MG ORAL TABLET ACETAMINOPHEN-CODEINE Inactive HYDROCODONE-ACETAMINOPHEN 5-325 MG ORAL TABLET 1 po q 6hr PRN co ugh HYDROCODONE-ACETAMINOPHEN 5-325 MG ORAL TABLET 698893 HYDROCODONE-ACETAMINOPHEN Inactive AVELOX 400 MG ORAL TABLET 1 tab by mouth daily AVELOX 400 MG ORAL TABLET MOXIFLOXACIN HCL Inactive CHERATUSSIN AC 100-10 MG/5ML ORAL SYRUP 1 tsp by mouth every 4 hours as needed for cough CHERATUSSIN AC 100-10 MG/5ML ORAL SYRUP 9 15415 GUAIFENESIN-CODEINE Inactive TERBINAFINE HCL 250 MG ORAL TABLET 1 qDay 07/08 TERBINAFINE HCL 250 MG ORAL TABLET 840949 TERBINAFINE HCL Inactive CHERATUSSIN AC 100-10 MG/5ML ORAL SYRUP 1 tsp by mouth every 4 hours as needed for cough CHERATUSSIN AC 100-10 MG/5ML ORAL SYRUP 9 56857 GUAIFENESIN-CODEINE Inactive ACETAMINOPHEN-CODEINE #3 300-30 MG ORAL TABLET 1 PO Q 4-6 HRS TX N PAIN ACETAMINOPHEN-CODEINE #3 300-30 MG ORAL TABLET ACETAMINOPHEN-CODEINE Inactive CHERATUSSIN AC 100-10 MG/5ML ORAL SYRUP 1 tsp by mouth every 4 hours as needed for cough CHERATUSSIN AC 100-10 MG/5ML ORAL SYRUP 9 50424 GUAIFENESIN-CODEINE Inactive AUGMENTIN 875-125 MG ORAL TABLET 1 tab by mouth twice daily with food AUGMENTIN 875-125 MG ORAL TABLET AMOXICIL MADELINE-POT CLAVULANATE Inactive CHERATUSSIN AC 100-10 MG/5ML ORAL SYRUP take one tsp po Q 6h ours prn cough CHERATUSSIN AC 100-10 MG/5ML ORAL SYRUP 450838 GUAIFENESIN-CODEINE Inactive PROPRANOLOL HCL 60 MG ORAL TABLET 1 PO Q D PROPRANOLOL HCL 60 MG ORAL TABLET 954804 PROPRANOLOL HCL Inactive TOPAMAX 50 MG ORAL TABLET take 1 tab po BID for migraines. 07/02 TOPAMAX 50 MG ORAL TABLET 453975 TOPIRAMATE Inacti ve TOPAMAX 25 MG ORAL TABLET 1 qHS x 1 week, then 1 BID x 1 week, then 1 qAM and 2 qHS x 1 week, then 2 BID (migraine prevention) TOPAMAX 25 MG ORAL TABLET 075950 TOPIRAMATE Inactive LYRICA 75 MG ORAL CAPSULE TAKE 1 CAPSULE BY MOUTH TWICE DAILY LYRICA 75 MG ORAL CAPSULE 972454 PREGABALIN Inactive SYMBICORT 160-4.5 MCG/ACT INHALATION AEROSOL 2 puffs bid wit h rinse after SYMBICORT 160-4.5 MCG/ACT INHALATION AEROSOL BUDESONIDE- FORMOTEROL FUMARATE Inactive PROMETHAZINE-CODEINE 6.25-10 MG/5ML ORAL SYRUP 1 tsp b y mouth every 8 hours prn cough PROMETHAZINE-CODEINE 6.25-10 MG/ 5ML ORAL SYRUP 403783 PROMETHAZINE-CODEINE Inactive CYMBALTA 30 MG ORAL CAPSULE DELAYED RELEASE PARTICLES 1 cap by mouth daily CYMBALTA 30 MG ORAL CAPSULE DELAYED RELE ASE PARTICLES 671338 DULOXETINE HCL Inactive PREMARIN 0.625 MG ORAL TABLET TAKE 1 TAB BY MOUTH DAILY PREMARIN 0.625 MG ORAL TABLET ESTROGENS CONJUGATED Inactive CHERATUSSIN AC 100-10 MG/5ML ORAL SYRUP 1 tsp by mouth every 4 hours as needed for cough CHERATUSSIN AC 100-10 MG/5ML ORAL SYRUP 9 51828 GUAIFENESIN-CODEINE Inactive PROMETHAZINE-CODEINE 6.25-10 MG/5ML ORAL SYRUP 1 tsp b y mouth every 6 hours if needed for cough PROMETHAZINE-CODEINE 6.25-10 MG/5ML ORAL SYRUP 950546 PROMETHAZINE-CODEINE Inactive CHERATUSSIN AC 100-10 MG/5ML ORAL SYRUP 1 tsp by mouth every 4 hours as needed for cough CHERATUSSIN AC 100-10 MG/5ML ORAL SYRUP 9 74623 GUAIFENESIN-CODEINE Inactive FLUTICASONE PROPIONATE 50 MCG/ACT NASAL SUSPENSION 1 t o 2 sprays each nostril daily FLUTICASONE PROPIONATE 50 MCG/AC T NASAL SUSPENSION 7913904 FLUTICASONE PROPIONATE Inactive PREDNISONE 20 MG ORAL TABLET 3 tab PO qd x 2d, 2 tab P O qd x 2d, 1 tab PO qd x 2d, 1/2 tab PO qd x 2d PREDNISONE 20 MG ORAL TAB LET 234684 PREDNISONE Inactive LEVOFLOXACIN 500 MG ORAL TABLET 1 tab PO daily x 10 days LEVOFLOXACIN 500 MG ORAL TABLET 980137 LEVOFLOXACIN Inactive CYCLOBENZAPRINE HCL 10 MG ORAL TABLET 1 tablet by mouth BID prn had pain CYCLOBENZAPRINE HCL 10 MG ORAL TABLET 566521 CYCLOBENZAPRINE HCL Inactive ZOCOR 40 MG ORAL TABLET 1 tab by mouth daily 4 ZOCOR 40 MG ORAL TABLET 633577 SIMVASTATIN Inactive TUSSIONEX PENNKINETIC ER 10-8 MG/5ML [...] FLUTICASONE PROPIO EFE 50 MCG/ACT NASAL SUSPENSION 6645074 FLUTICASONE PROPIONATE Inactive TUSSIONEX PENNKINETIC ER 10-8 MG/5ML ORAL SUSPENSION E XTENDED RELEASE 5 mL PO q 12 hrs PRN cough TUSSIONEX PENNKINETI C ER 10-8 MG/5ML ORAL SUSPENSION EXTENDED RELEASE HYDROCOD POLST-CHLORPHEN POLST I nactive LYRICA 100 MG ORAL CAPSULE Take 1 tab po BID for fibromyalgia 20 11/08/21 LYRICA 100 MG ORAL CAPSULE 389358 PREGABALIN Inact nael TUSSIONEX PENNKINETIC ER 10-8 [...] three days PREDNISONE 20 MG ORAL TABLET 719118 PREDNIS ONE Inactive PROAIR HFA 108 (90 BASE) MCG/ACT INHALATION AEROSOL SO LUTION 2 puffs four times a day as needed PROAIR HFA 108 (90 B ASE) MCG/ACT INHALATION AEROSOL SOLUTION ALBUTEROL SULFATE Inactive PREDNISONE 20 MG ORAL TABLET two tabs by mouth today, then one tab by mouth days two and three and four PREDNISONE 20 MG ORAL TAB LET 114325 PREDNISONE Inactive TUSSIONEX PENNKINETIC ER 10-8 MG/5ML [...] bid 04/20 TOPAMAX 100 MG ORAL TABLET 847545 TOPIRAMATE Inactive CYMBALTA 30 MG ORAL CAPSULE DELAYED RELEASE PARTICLES 1 cap by mouth daily for depression CYMBALTA 30 MG ORAL CAPSULE DELAYED RELEASE PARTICLES 440782 DULOXETINE HCL Inactive TYLENOL WITH CODEINE #3 300-30 MG ORAL TABLET 1-2 po q6hr PRN Pa in TYLENOL WITH CODEINE #3 300-30 MG ORAL TABLET ACETAMINOPHEN-CODEINE Inactive ZITHROMAX Z-REYNA 250 MG ORAL TABLET 2 today, then 1 daily for 4 d ays ZITHROMAX Z-REYNA 250 MG ORAL TABLET [id number] AZITHROMYCIN Inactive CEFDINIR 300 MG ORAL CAPSULE by mouth twice a day 2010 CEFDINIR 300 MG ORAL CAPSULE 109667 CEFDINIR Inactive CEFDINIR 300 MG ORAL CAPSULE by mouth twice a day 2010 CEFDINIR 300 MG ORAL CAPSULE 077832 CEFDINIR Inactive CEFDINIR 300 MG ORAL CAPSULE by mouth twice a day 2010 CEFDINIR 300 MG ORAL CAPSULE 479866 CEFDINIR Inactive CEFDINIR 300 MG ORAL CAPSULE by mouth twice a day 2011 CEFDINIR 300 MG ORAL CAPSULE 141714 CEFDINIR Inactive ZITHROMAX 250 MG ORAL TABLET 2 po today, then 1 po q days 2-5 03/07/07 ZITHROMAX 250 MG ORAL TABLET 881272 AZITHROMYCIN [place] [facility]ive CEFDINIR 300 MG ORAL CAPSULE by mouth twice a day 2011 CEFDINIR 300 MG ORAL CAPSULE 20020704 CEFDINIR Inactive PREDNISONE 20 MG ORAL TABLET 2 tabs daily for 3 days, 1 tab daily for 3 days, 1/2 tab daily for 2 days [facility] 672[facility] PRED[facility]ISONE Inactive AVELOX 400 MG ORAL TABLET [...] days 11/07 PREDNISONE 20 MG ORAL TABLET 429451 PREDNISONE Inactive LEVAQUIN 500 MG ORAL TABLET take one po QD LEVAQUIN 500 MG ORAL TABLET 468140 LEVOFLOXACIN Inactive AZITHROMYCIN 250 MG ORAL TABLET 2 po qd x 1 day, then 1 po q d x 4 days AZITHROMYCIN 250 MG ORAL TABLET 569498 AZITHROMY GIOVANNI Inactive MEDROL 4 MG ORAL TABLET THERAPY PACK 6 tabs on day 1, 5 tabs on day 2, 4 tabs on day 3, 3 tabs on day 4, 2 tabs on day 5, 1 tab on day 6 2013 MEDROL 4 MG ORAL TABLET THERAPY PACK 898058 METHYLPREDNISOLONE [place] [facility] CHERATUSSIN AC 100-10 MG/5ML ORAL SYRUP 5ml po q6hr PRN Cough 20 13/04/14 CHERATUSSIN AC 100-10 MG/5ML ORAL SYRUP 993508 GUAIFENE SIN-CODEINE Inactive TRIAMCINOLONE ACETONIDE 0.1 % EXTERNAL CREAM apply three roger es daily prn rash TRIAMCINOLONE ACETONIDE 0.1 % EXTERNAL CREAM 101 4314 TRIAMCINOLONE ACETONIDE Inactive AZITHROMYCIN 250 MG ORAL TABLET 2 po qd x 1 day, then 1 po q d x 4 days AZITHROMYCIN 250 MG ORAL TABLET 594293 AZITHROMY GIOVANNI Inactive MEDROL 4 MG ORAL TABLET THERAPY PACK 6 pills x 1 day, then 5 pills x 1 day then 4 pills x 1 day, then 3 pills x 1 day, then 2 pills x 1 day, then 1 pill x 1 day, then stop MEDROL 4 MG ORAL TABLET THERAPY PACK 850003 METHYLPREDNISOLONE Inactive AMOXICILLIN 500 MG ORAL CAPSULE 1 tab by mouth 3 times daily x 10 days AMOXICILLIN 500 MG ORAL CAPSULE 355198 AMOXICILL IN Inactive AMOXICILLIN 500 MG ORAL CAPSULE 1 tab by mouth 3 times daily x 10 days AMOXICILLIN 500 MG ORAL CAPSULE 310786 AMOXICILL IN Inactive ZITHROMAX 250 MG ORAL TABLET 2 po today, then 1 po q days 2-5 20 12/08/14 ZITHROMAX 250 MG ORAL TABLET 269011 AZITHROMYCIN [place] [facility] AUGMENTIN 875-125 MG ORAL TABLET 1 po BID x 10 days 20 13/01/20 AUGMENTIN 875-125 MG ORAL TABLET AMOXICILLIN-POT CLAVULANATE Inactive ZITHROMAX Z-REYNA 250 MG ORAL TABLET 2 today, then 1 daily for 4 d ays ZITHROMAX Z-REYNA 250 MG ORAL TABLET 029066 AZITHROMYCIN Inactive ZITHROMAX 250 MG ORAL TABLET 2 po today, then 1 po q days 2-5 20 14/03/21 ZITHROMAX 250 MG ORAL TABLET 449235 AZITHROMYCIN [place] [facility] ZITHROMAX Z-REYNA 250 MG ORAL TABLET 2 today, then 1 daily for 4 d ays ZITHROMAX Z-REYNA 250 MG ORAL TABLET 337911 AZITHROMYCIN Inactive CEFDINIR 300 MG ORAL CAPSULE 1 po BID x 10 days 06/21 CEFDINIR 300 MG ORAL CAPSULE 174166 CEFDINIR Inactive ZITHROMAX 250 MG ORAL TABLET 2 po today, then 1 po q days 2-5 20 13/08/10 ZITHROMAX 250 MG ORAL TABLET 579885 AZITHROMYCIN [place] [facility] LEVAQUIN 500 MG ORAL TABLET 1 tablet by mouth daily 20 13/09/24 LEVAQUIN 500 MG ORAL TABLET 19971102 LEVOFLOXACIN Inactive SINGULAIR 10 MG ORAL TABLET 1 po qday for allergies 20 14/01/12 SINGULAIR 10 MG ORAL TABLET 20010504 MONTELUKAST SODIUM Inactive AMOXICILLIN 500 MG ORAL CAPSULE 2 po BID x 10 days 201 09/29/08 AMOXICILLIN 500 MG ORAL CAPSULE 384948 AMOXICILLIN Inactive PREDNISONE 20 MG ORAL TABLET 2 tabs daily for 3 days, 1 tab daily for 3 days, 1/2 tab daily for 2 days PREDNISONE 20 MG ORAL T ABLET 091696 PREDNISONE Inactive ZITHROMAX Z-REYNA 250 MG ORAL TABLET 2 today, then 1 daily for 4 d ays ZITHROMAX Z-REYNA 250 MG ORAL TABLET 502329 AZITHROMYCIN Inactive PREDNISONE 20 MG ORAL TABLET 2 tabs daily for 3 days, 1 tab daily for 3 days, 1/2 tab daily for 2 days PREDNISONE 20 MG ORAL T ABLET 127750 PREDNISONE Inactive ZITHROMAX 250 MG ORAL TABLET 2 po today, then 1 po q days 2-5 20 14/09/04 ZITHROMAX 250 MG ORAL TABLET 084031 AZITHROMYCIN [place] [facility] AMOXICILLIN 500 MG ORAL CAPSULE 1 cap by mouth three times a day AMOXICILLIN 500 MG ORAL CAPSULE 470675 AMOXICILLIN Inactive TERBINAFINE HCL 250 MG ORAL TABLET 1 qDay for nail fungus 7 TERBINAFINE HCL 250 MG ORAL TABLET 900969 TERBINAFINE HCL Inact nael AUGMENTIN 875-125 MG ORAL TABLET 1 po BID x 10 days 20 16/03/22 AUGMENTIN 875-125 MG ORAL TABLET AMOXICILLIN-POT CLAVULANATE Inactive PREDNISONE 20 MG ORAL TABLET 2 po qd x 5 days PREDNISONE 20 MG ORAL TABLET 006683 PREDNISONE Inactive AZITHROMYCIN 250 MG ORAL TABLET 2 po qd x 1 day, then 1 po q d x 4 days AZITHROMYCIN 250 MG ORAL TABLET 743675 AZITHROMY GIOVANNI Inactive PREDNISONE 50 MG ORAL TABLET Take 50 mg dialy for 6 day s 7 PREDNISONE 50 MG ORAL TABLET 909220 PREDNISONE Inactive AUGMENTIN 875-125 MG ORAL TABLET 1 po BID x 10 days 20 18/04/16 AUGMENTIN 875-125 MG ORAL TABLET AMOXICILLIN-POT CLAVULANATE Inactive DOXYCYCLINE HYCLATE 100 MG ORAL CAPSULE 1 cap by mouth twice latasha ly DOXYCYCLINE HYCLATE 100 MG ORAL CAPSULE 8270164 DOXYCYCL INE HYCLATE Inactive PREDNISONE 20 MG ORAL TABLET Take 2 tabs day 1 and 2 and 1 t ab days 3 and 4 PREDNISONE 20 MG ORAL TABLET 000061 PREDNISONE Inactive AMOXICILLIN 500 MG ORAL CAPSULE 1 cap by mouth twice daily 10/21 AMOXICILLIN 500 MG ORAL CAPSULE 081426 AMOXICILLIN Inactive TRIAMCINOLONE ACETONIDE 0.1 % EXTERNAL OINTMENT Apply to affected areas TID PRN Rash/Itching for up 2 weeks TRIAMCINOLON E ACETONIDE 0.1 % EXTERNAL OINTMENT 3043612 TRIAMCINOLONE ACETONIDE Inactive ACYCLOVIR 800 MG ORAL TABLET 1 po 5 times daily x 7 days ACYCLOVIR 800 MG ORAL TABLET 996438 ACYCLOVIR Inactive Vital Signs Date Name Value [...] - Chem istry sodium, serum 139 mmol/L 215-258 6923/10/12 potassium, serum 3.8 mmol/L 3.5-5.2 chloride, serum [...] negative Encounters Code Encounter Date Provider Facility CPT-24726 Level 3 Est. Patient 14:16:41 CDT David Tin dle [facility] CPT-45610 Level 3 Est. Patient 13:57:55 CDT David Tin dle [facility] CPT-83693 Level 3 Est. Patient 16:08:07 CDT David Tin dle [facility] CPT-38280 Level 3 Est. Patient 16:53:54 CDT J Livan haas MD [facility]-96603 [id number] Vst-Est Level IV 08:41:[address] Carlton Hu MD [facility] CPT-62445 Level 3 Est. Patient 09:46:49 [employer] David riverae [facility] CPT-96049 [id number] Vst-Est Level III 11:12:16 CDT Yanet Bess DO [facility] CPT-79742 Level 3 Est. Patient 11:34:49 [employer] Perez Mora MD [facility] CPT-33012 Level 4 Est. Patient 09:51:32 [employer] Carlton rich MD [facility] CPT-28954 Level 3 Est. Patient 10:26:00 [employer] Elise stephenson [facility] CPT-28345 Level 3 Est. Patient 13:35:41 [employer] Carlton rich MD [facility] CPT-81623 Level 3 Est. Patient 10:03:52 [employer] Carlton rich MD [facility] CPT-60481 Level 3 Est. Patient 12:17:50 CDT Hugo Restrepo MD [facility] CPT-38065 Level 3 Est. Patient 13:42:38 CDT Elise Are ll [facility] CPT-53374 Level 3 Est. Patient 13:23:51 CDT Diya Mariana mango [facility] CPT-78284 Level 3 Est. Patient 14:22:19 [employer] Diya cobian [facility] CPT-80852 Level 3 Est. Patient 10:11:46 CDT Carlton rich MD [facility] CPT-62007 Level 3 Est. Patient 17:29:43 CDT Elise Are ll [facility] CPT-21848 Level 3 Est. Patient 11:58:06 CDT Elise Are [facility] CPT-11766 Level 4 Est. Patient 14:36:51 CDT Carlton rich MD [facility] CPT-47214 Level 3 Est. Patient 18:16:00 [employer] Blaine HERNANDEZ [facility] CPT-67358 Level 3 Est. Patient 09:45:49 [employer] Carlton rich MD [facility] CPT-00300 Level 3 Est. Patient 13:19:20 CDT Carlton rich MD [facility] CPT-47093 Level 3 Est. Patient 13:06:43 CDT Ridge tam DO [facility] CPT-61850 Level 3 Est. Patient 10:03:07 CDT Perez Mora MD [facility] CPT-28952 Level 3 Est. Patient 19:50:35 [employer] Carlton rich MD [facility] CPT-51527 Level 4 Est. Patient 18:05:01 [employer] Carlton rich MD [facility]-97425 Level 3 Est. Patient 10:45:55 [employer] Hugo Restrepo MD [facility]-83015 Level 3 Est. Patient 14:12:49 CDT Girffin HERNANDEZ [facility]-41031 Level 3 Est. Patient 17:37:24 CDT Carlton rich MD [facility]-20294 Level 3 Est. Patient 16:51:54 CDT Carlton rich MD [facility]-50778 Level 3 Est. Patient 12:18:11 CDT Hugo Restrepo MD [facility]-53086 Level 3 Est. Patient 11:30:25 CDT Marcy crisostomo MD PhD [facility]-31857 Level 3 Est. Patient 12:00:47 [employer] Carlton rich MD [facility]-37872 Level 3 Est. Patient 16:31:06 [employer] Carlton rich MD [facility]-25941 Level 3 Est. Patient 16:23:24 [employer] Ridge tam DO [facility]-31481 Level 3 Est. Patient 12:34:12 CDT Carlton rich MD [facility]-57240 Level 2 Est. Patient 15:43:33 CDT Robi armstrong MD [facility]-27051 Level 4 Est. Patient 14:04:44 CDT Carlton rich MD [facility]-36713 Level 3 Est. Patient 05:47:59 CDT Ridge tam [facility]-34257 Level 3 Est. Patient 13:12:53 [employer] Carlton rich MD [facility] CPT-96299 Level 3 Est. Patient 14:26:53 CDT Hugo Restrepo MD [facility] Procedures Code Procedure Name Date Entry Date Standard Desc ription CPT-000 Give Appropriate Flu Vaccine 14:14:31 CDT 2 CPT-J1040 Depo Medrol 80 mg (Methyl Prednisolone A cetate) 10:42:44 CDT CPT-J1100 Decadron 8mg (Dexamethasone) 10:42:44 CDT 2 CPT-J0696 Rocephin 1gm Inj Solr 14:32:13 CDT CPT-J1020 Depo Medrol 60 mg (Methyl Prednisolone A cetate) 14:32:13 CDT CPT-J1100 Decadron 6mg (Dexamethasone) 14:32:13 CDT 2 CPT-42089 Hip bilat min 2V w AP pelvis 13:16:20 CDT 2 CPT-48654 Pelvis only 13:07:33 CDT CPT-58071 Spec Collection and Handling Fee 11:25:12 C DT CPT-76021 Fluzone Quadrivalent Intramuscular Suspe nsion 0.5 ML 14:31:55 CDT CPT-04907 Abx/Therapy Injection 13:28:47 [employer] CPT-J2930 Solu Medrol 125 mg (Methyl Prednisolone Sodium Succinate) 12:00:47 [employer] CPT-69104 Venipuncture Draw Fee 11:33:31 CDT CPT-06357 EKG Trac and Interp 11:21:09 CDT CPT-06275 Chest 2V Frontal and Lat 11:21:09 CDT 12/15 CPT-03466 Venipuncture Draw Fee 08:02:34 CDT CPT-82361 Chest 2V Frontal and Lat 05:47:59 CDT 06/05
[2019-10-08] MEDS ORDERED: D5 1/2 NS W/KCL 20 MEQ/L 1,000 ML IV SCH (10:08)
--- NOTE | 2019-10-08 10:08 | Progress Note-Post Operative ---
Post-Operative Progess Note Surgeon (s)/Finishing Powder Press Operator (s) Surgeon NAHUM HARVEY MD Finishing Powder Press Operator n/a Pre-Operative Diagnosis Bilat Chronic Sinusitis, Bilat HYper of INf Turbs, Dev Septum Post-Operative Diagnosis same Post-Op Procedure Note Date of Procedure: Oct 08, 2019 Name of Procedure Performed: Bilat ESS, Nasal Septoplasty, Bilat Red of Inf Turbs Description & Findings Description and Findings: n/a Anesthesia Type get Estimated Blood Loss minimal Packing none. Specimen(s) collected/removed bilat chronic sinus disease NAHUM HARVEY MD Oct 08, 2019 10:08
--- OUTSIDE RECORDS SUMMARY | 2019-10-08 10:08 | XMS REPORT | Clinical Summary ---
Author Author Caitlin, Juliana Martinez Organization [employer] [facility] Address Unknown Phone Unavailable [...] times daily for 7 days POTASSIUM CHLORIDE [id number] Active Columba Raida Active TUSSIONEX PENNKINETIC ER 10-8 MG/5ML LQCR 5ml po q12hr PRN Cough 20 14/09/04 HYDROCOD POLST-CHLORPHEN POLST 32021145908 Active Elise Whitmore APRN Active ZITHROMAX 250 MG TAB 2 po today, then 1 po q days 2-5 AZITHROMYCIN 74443022228 No Longer Active Elise Whitmore APRN Acti ve TUSSIONEX PENNKINETIC ER 10-8 MG/5ML LQCR 5 ml twice a day a s needed for cough HYDROCOD POLST-CHLORPHEN POLST 03651837556 N o Longer Active Elise Whitmore APRN Active MONTELUKAST SODIUM 10 MG ORAL TABS 1 po daily for Allergy 6 MONTELUKAST SODIUM 99491638417 Active Carlton Hu MD Ac tive TUSSIONEX PENNKINETIC ER 10-8 MG/5ML LQCR 5ml po q12hr PRN Cough HYDROCOD POLST-CHLORPHEN POLST 75806686648 No Longer Active Hugo Restrepo MD Active GABAPENTIN 100 MG CAPS 1 po BID for fibromyalgia GABAPENTIN 00977981603 Active Elise Whitmore APRN Active LYRICA 100 MG CAPS Take 1 tab po BID for fibromyalgia PREGABALIN 49175541043 No Longer Active Elise Whitmore APRN Acti ve PROAIR HFA 108 (90 BASE) MCG/ACT AERS 2 puffs four times a d ay as needed ALBUTEROL SULFATE 37682502197 Active Elise Whitmore APRN Active MUCINEX DM MAXIMUM STRENGTH 60-1200 MG [id number] 1 tab po q am 2016 DEXTROMETHORPHAN-GUAIFENESIN 16781712289 Active Jillina Frazell CLINICAL ENGINEERING DIRECTOR Active PREDNISONE 20 MG TAB 2 tabs daily for 3 days, 1 t ab daily for 3 days, 1/2 tab daily for 2 days PREDNISONE 02009760828 No Longer Active Jillina Frazell CLINICAL ENGINEERING DIRECTOR Active TUSSIONEX PENNKINETIC ER 10-8 MG/5ML ORAL LQCR 5 mL PO q 12 hrs PRN cough HYDROCOD POLST-CHLORPHEN POLST 27392793918 No Longer Active Jillina Frazell CLINICAL ENGINEERING DIRECTOR Active FLUTICASONE PROPIONATE 50 MCG/ACT SUSP 2 sprays each n ostril daily until bottle is empty FLUTICASONE PROPIONATE 70707362818 No Longer Ac tive Jillina Frazell CLINICAL ENGINEERING DIRECTOR Active ASMANEX 60 METERED DOSES 220 MCG/INH AEPB 1 puff bid with ri nse after MOMETASONE FUROATE 32565650473 No Longer Active Diya meneses CLINICAL ENGINEERING DIRECTOR Active ZITHROMAX Z-REYNA 250 MG TABS 2 today, then 1 daily for 4 days 201 09/29/14 AZITHROMYCIN 24164420916 No Longer Active Elise Whitmore CLINICAL ENGINEERING DIRECTOR Active TUSSIONEX PENNKINETIC ER 10-8 MG/5ML LQCR 5ml po q12hr PRN Cough HYDROCOD POLST-CHLORPHEN POLST 60984777035 No Longer Active Elise Whitmore CLINICAL ENGINEERING DIRECTOR Active MUCINEX D 60-600 MG [id number] 1 tab po q am PSEUDOEPHEDRINE-GUAIFENESIN 30723677779 Active Diya De Guzman CLINICAL ENGINEERING DIRECTOR Active PREDNISONE 20 MG TAB 2 tabs daily for 3 days, 1 t ab daily for 3 days, 1/2 tab daily for 2 days PREDNISONE 62188928668 No Longer Active Diya De Guzman CLINICAL ENGINEERING DIRECTOR Active AMOXICILLIN 500 MG CAPS 2 po BID x 10 days AMOX ICILLIN 48967937057 No Longer Active Diya De Guzman CLINICAL ENGINEERING DIRECTOR Active SINGULAIR 10 MG TABS 1 po qday for allergies 2 MONTELUKAST SODIUM 87370542561 No Longer Active Carlton Hu MD Acti ve LEVAQUIN 500 MG TAB 1 tablet by mouth daily LEV OFLOXACIN 70498121934 No Longer Active Carlton Hu MD Active FLUTICASONE PROPIONATE 50 MCG/ACT SUSP 2 sprays each n ostril daily for 2 weeks, then 1 spray each nostril daily. FLUTICASONE PRO PIONATE 79907094916 Active Elise Whitmore APRN Active ZITHROMAX 250 MG TAB 2 po today, then 1 po q days 2-5 AZITHROMYCIN 51850561283 No Longer Active Elise Whitmore APRN Acti ve XANAX 0.5 MG TABS one tablet by mouth daily prn anxiety ALPRAZOLAM 74674805263 Active Elise Whitmore APRN Active CYMBALTA 30 MG CPEP 1 cap by mouth daily for depression DULOXETINE HCL 57005183492 Active Carlton Hu MD Active CEFDINIR 300 MG CAPS 1 po BID x 10 days CEFDINI R 85334892552 No Longer Active Carlton Hu MD Active ZOCOR 40 MG TAB 1 tab by mouth daily SIMVASTATI N 65544850198 No Longer Active Carlton Hu MD Active CYCLOBENZAPRINE HCL 10 MG TABS 1 tablet by mouth BID prn had cherelle n CYCLOBENZAPRINE HCL 42923758987 No Longer Active Carlton Hu MD Active LEVOFLOXACIN 500 MG ORAL TABS 1 tab PO daily x 10 days LEVOFLOXACIN 27589375121 No Longer Active Carlton Hu MD Acti ve PREDNISONE 20 MG ORAL TABS 3 tab PO qd x 2d, 2 tab PO qd x 2d, 1 tab PO qd x 2d, 1/2 tab PO qd x 2d PREDNISONE 43307569584 No Longer Active Carlton Hu MD Active FLUTICASONE PROPIONATE 50 MCG/ACT SUSP 1 to 2 sprays each no stril daily FLUTICASONE PROPIONATE 48098256530 No Longer Active T jaz HERNANDEZ Active CHERATUSSIN AC 100-10 MG/5ML SYRP 1 tsp by mouth every 4 hours as needed for cough GUAIFENESIN-CODEINE 49283308761 No Longer Activ e Blaine HERNANDEZ Active PROMETHAZINE-CODEINE 6.25-10 MG/5ML SYRP 1 tsp by mout h every 6 hours if needed for cough PROMETHAZINE-CODEINE 49083353531 No Long er Active Blaine HERNANDEZ Active CHERATUSSIN AC 100-10 MG/5ML SYRP 1 tsp by mouth every 4 hours as needed for cough GUAIFENESIN-CODEINE 91280532065 No Longer Activ e Blaine HERNANDEZ Active ZITHROMAX Z-REYNA 250 MG TABS 2 today, then 1 daily for 4 days 201 08/30/03 AZITHROMYCIN 12083654626 No Longer Active Columba Raida Act nael ZITHROMAX 250 MG TAB 2 po today, then 1 po q days 2-5 AZITHROMYCIN 86213330373 No Longer Active Carlton Hu MD Acti ve ZITHROMAX Z-REYNA 250 MG TABS 2 today, then 1 daily for 4 days 201 08/07/20 AZITHROMYCIN 64094038107 No Longer Active Columba Raida Act nael AUGMENTIN 875-125 MG TAB 1 po BID x 10 days AMOXICILLIN- POT CLAVULANATE 22998094193 No Longer Active Jillshakira Sernazell CLINICAL ENGINEERING DIRECTOR Active ZITHROMAX 250 MG TAB 2 po today, then 1 po q days 2-5 AZITHROMYCIN 99142576366 No Longer Active Carlton Hu MD Acti ve TRAMADOL HCL 50 MG TABS 1 po tid with ES Tylenol TRAMADOL HCL 61454142258 Active Carlton Hu MD Active PREMARIN 0.625 MG TABS TAKE 1 TAB BY MOUTH DAILY 07/25 ESTROGENS CONJUGATED 17311761626 No Longer Active Ridge Bess DO Active CYMBALTA 30 MG CPEP 1 cap by mouth daily DULOXE SNEHA HCL 27520052075 No Longer Active Ridge Bess DO Active AMOXICILLIN 500 MG CAP 1 tab by mouth 3 times daily x 10 days 20 14/04/28 AMOXICILLIN 36354424972 No Longer Active Carlton Hu MD Active AMOXICILLIN 500 MG CAP 1 tab by mouth 3 times daily x 10 days 20 13/03/08 AMOXICILLIN 88595462695 No Longer Active Carlton Hu MD Active PROMETHAZINE-CODEINE 6.25-10 MG/5ML SYRP 1 tsp by mouth ever y 8 hours prn cough PROMETHAZINE-CODEINE 33339558010 No Longer Active Robert Hu MD Active MEDROL (REYNA) 4 MG TABS 6 pills x 1 day, then 5 pill s x 1 day then 4 pills x 1 day, then 3 pills x 1 day, then 2 pills x 1 day, then 1 pill x 1 day, then stop METHYLPREDNISOLONE 32330107187 No Longer Active Parris Mora MD Active AZITHROMYCIN 250 MG TABS 2 po qd x 1 day, then 1 po qd x 4 days AZITHROMYCIN 40264598459 No Longer Active Perez Mora MD Active SYMBICORT 160-4.5 MCG/ACT AERO 2 puffs bid with rinse after 2011 BUDESONIDE-FORMOTEROL FUMARATE 91524115437 No Longer Active Perez Mora MD Active LYRICA 75 MG CAPS TAKE 1 CAPSULE BY MOUTH TWICE DAILY 2013 PREGABALIN 24171386650 No Longer Active Carlton Hu MD Active TOPAMAX 25 MG TABS 1 qHS x 1 week, then 1 BID x 1 week, then 1 qAM and 2 qHS x 1 week, then 2 BID (migraine prevention) TOPIRAMAT E 07997902699 No Longer Active Jerica FUENTES Active TOPAMAX 50 MG TABS take 1 tab po BID for migraines. 12/07/10 TOPIRAMATE 20090377713 No Longer Active Jerica FUENTES Ac tive TOPAMAX 100 MG TABS Take 1 tablet po bid TOPIRAMATE 4999 5527113 Active Carlton Hu MD Active TRIAMCINOLONE ACETONIDE 0.1 % CREA apply three times daily prn r beatrice TRIAMCINOLONE ACETONIDE 92001995531 No Longer Active Carlton Hu MD Active PAXIL 40 MG TAB take 1 tab po qday for depression PAROXETINE HCL 57966451847 Active Carlton Hu MD Active CHERATUSSIN AC 100-10 MG/5ML SYRP 5ml po q6hr PRN Cough GUAIFENESIN-CODEINE 94597120561 No Longer Active Carlton Hu MD Active MEDROL (REYNA) 4 MG TABS 6 tabs on day 1, 5 tabs on d ay 2, 4 tabs on day 3, 3 tabs on day 4, 2 tabs on day 5, 1 tab on day 6 METHYLPREDNISOLONE 75576976828 No Longer Active Perez Mora MD Active AZITHROMYCIN 250 MG TABS 2 po qd x 1 day, then 1 po qd x 4 days AZITHROMYCIN 49848711923 No Longer Active Perez Mora MD Active PROPRANOLOL HCL 60 MG TABS 1 PO Q D PROPRANOL OL HCL 53511243317 No Longer Active Perez Mora MD Active CHERATUSSIN AC 100-10 MG/5ML SYRP take one tsp po Q 6hours prn c ough GUAIFENESIN-CODEINE 10113452242 No Longer Active Perez Means Active AUGMENTIN 875-125 MG TAB 1 tab by mouth twice daily with food 20 12/03/31 AMOXICILLIN-POT CLAVULANATE 93708729415 No Longer Active Chanel Mora MD Active CHERATUSSIN AC 100-10 MG/5ML SYRP 1 tsp by mouth every 4 hours as needed for cough GUAIFENESIN-CODEINE 01405185831 No Longer Activ e Hugo Restrepo MD Active ACETAMINOPHEN-CODEINE #3 300-30 MG TABS 1 PO Q 4-6 HRS PRN PAIN ACETAMINOPHEN-CODEINE 67230222839 No Longer Active Hugo Restrepo MD Active LEVAQUIN 500 MG TABS take one po QD LEVOFLOXACI N 61703482424 No Longer Active Griffin HERNANDEZ Active PREDNISONE 20 MG TAB Take 3 tabs daily for 3 days , 2 tabs daily for 3 days, 1 tab daily for 3 days, 1/2 tab daily for 3 days P REDNISONE 15992109964 No Longer Active Carlton Hu MD Active AVELOX 400 MG TABS 1 tab by mouth daily MOXIFLO XACIN HCL 61922109002 No Longer Active Carlton Hu MD Active CHERATUSSIN AC 100-10 MG/5ML SYRP 1 tsp by mouth every 4 hours as needed for cough GUAIFENESIN-CODEINE 79543950241 No Longer Activ e Hugo Restrepo MD Active AVELOX 400 MG TABS 1 tab by mouth daily MOXIFLO XACIN HCL 76472175816 No Longer Active Marcy De La Rosa MD PhD Active TERBINAFINE HCL 250 MG TABS 1 qDay TERBINAF INE HCL 11640743461 No Longer Active Marcy De La Rosa MD PhD Active CHERATUSSIN AC 100-10 MG/5ML SYRP 1 tsp by mouth every 4 hours as needed for cough GUAIFENESIN-CODEINE 41965387115 No Longer Activ e Marcy De La Rosa MD PhD Active AVELOX 400 MG TABS 1 tab by mouth daily MOXIFLO XACIN HCL 12328681491 No Longer Active Marcy De La Rosa MD PhD Active HYDROCODONE-ACETAMINOPHEN 5-325 MG TABS 1 po q 6hr PRN cough 201 05/09/16 HYDROCODONE-ACETAMINOPHEN 49219290035 No Longer Active Marcy De La Rosa MD PhD Active PREDNISONE 20 MG TAB 2 tabs daily for 3 days, 1 t ab daily for 3 days, 1/2 tab daily for 2 days PREDNISONE 52761410708 No Longer Active Carlton Hu MD Active CEFDINIR 300 MG CAPS by mouth twice a day CEFDI ODILIA 12019226051 No Longer Active Carlton Hu MD Active HYDROCHLOROTHIAZIDE 25 MG TABS 1 TAB PO DAILY H YDROCHLOROTHIAZIDE 05541849249 Active Carlton Hu MD Active ACETAMINOPHEN-CODEINE #3 300-30 MG TABS 1 tablet po q 4-6hrs prn pain ACETAMINOPHEN-CODEINE 13524980274 No Longer Active Ridge Bess DO Active ZITHROMAX 250 MG TAB 2 po today, then 1 po q days 2-5 AZITHROMYCIN 28424543626 No Longer Active Carlton Hu MD Acti ve CHERATUSSIN AC 100-10 MG/5ML SYRP take 1 tsp po q4-6 hours prn c ough GUAIFENESIN-CODEINE 16698988097 No Longer Active Carlton Hu MD Active ACETAMINOPHEN-CODEINE #3 300-30 MG TABS 1 PO Q 4-6 HR PRN PAIN 2 ACETAMINOPHEN-CODEINE 87601680621 No Longer Active Carlton rich MD Active LORTAB 7.5-500 MG/15ML ELIX 7.5 ml po q 4 hour prn cough HYDROCODONE-ACETAMINOPHEN 86471970417 No Longer Active Carlton Hu MD Active PREDNISONE 20 MG TAB 1 po bid 3 days, then 1 po q day 3 days 201 05/03/07 PREDNISONE 02382117082 No Longer Active Carlton Hu MD Active ELMIRON 100 MG CAPS 2 tablets in the am and 1 tablet at hs PENTOSAN POLYSULFATE SODIUM 49321100618 Active Carlton Hu MD Ac tive CEFDINIR 300 MG CAPS by mouth twice a day CEFDI ODILIA 27111039397 No Longer Active Carlton Hu MD Active CEFDINIR 300 MG CAPS by mouth twice a day CEFDI ODILIA 89223164316 No Longer Active Carlton Hu MD Active CEFDINIR 300 MG CAPS by mouth twice a day CEFDI ODILIA 14853207162 No Longer Active Carlton Hu MD Active TESSALON PERLES 100 MG CAP 1 tablet by mouth 3 times daily a s needed for cough BENZONATATE 76408568156 No Longer Active Carlton bustamante MD Active CEFDINIR 300 MG CAPS by mouth twice a day CEFDI ODILIA 77722192481 No Longer Active Carlton Hu MD Active ZITHROMAX Z-REYNA 250 MG TABS 2 today, then 1 daily for 4 days 201 04/09/17 AZITHROMYCIN 11171561105 No Longer Active Hugo Restrepo MD Active TESSALON PERLES 100 MG CAP 1 tablet by mouth 3 times daily a s needed for cough TESSALON PERLES 100 MG CAP 045543 BENZONATATE I nactive PREDNISONE 20 MG TAB 1 po bid 3 days, then 1 po q day 3 days 201 05/03/07 PREDNISONE 20 MG TAB 466048 PREDNISONE Inactive LORTAB 7.5-500 MG/15ML ELIX 7.5 ml po q 4 hour prn cough LORTAB 7.5-500 MG/15ML ELIX HYDROCODONE-ACETAMINOPHEN Inacti ve ACETAMINOPHEN-CODEINE #3 300-30 MG TABS 1 PO Q 4-6 HR PRN PAIN 2 ACETAMINOPHEN-CODEINE #3 300-30 MG TABS ACETAMIN OPHEN-CODEINE Inactive CHERATUSSIN AC 100-10 MG/5ML SYRP take 1 tsp po q4-6 hours prn c ough CHERATUSSIN AC 100-10 MG/5ML SYRP 597316 GUAIFENESIN-CO DEINE Inactive ACETAMINOPHEN-CODEINE #3 300-30 MG TABS 1 tablet po q 4-6hrs prn pain ACETAMINOPHEN-CODEINE #3 300-30 MG TABS ACETAMIN OPHEN-CODEINE Inactive HYDROCODONE-ACETAMINOPHEN 5-325 MG TABS 1 po q 6hr PRN cough 201 05/09/16 HYDROCODONE-ACETAMINOPHEN 5-325 MG TABS 496242 HYDROCODONE-ACETAMINOPHEN Inactive AVELOX 400 MG TABS 1 tab by mouth daily A VELOX 400 MG TABS 157099 MOXIFLOXACIN HCL Inactive CHERATUSSIN AC 100-10 MG/5ML SYRP 1 tsp by mouth every 4 hours as needed for cough CHERATUSSIN AC 100-10 MG/5ML SYRP 459130 GUAIFENESIN-CODEINE Inactive TERBINAFINE HCL 250 MG TABS 1 qDay TERBINAFINE HCL 250 MG TABS 315970 TERBINAFINE HCL Inactive CHERATUSSIN AC 100-10 MG/5ML SYRP 1 tsp by mouth every 4 hours as needed for cough CHERATUSSIN AC 100-10 MG/5ML SYRP 416730 GUAIFENESIN-CODEINE Inactive ACETAMINOPHEN-CODEINE #3 300-30 MG TABS 1 PO Q 4-6 HRS PRN PAIN ACETAMINOPHEN-CODEINE #3 300-30 MG TABS ACETAMINOPHEN-CODEIN E Inactive CHERATUSSIN AC 100-10 MG/5ML SYRP 1 tsp by mouth every 4 hours as needed for cough CHERATUSSIN AC 100-10 MG/5ML SYRP 458157 GUAIFENESIN-CODEINE Inactive AUGMENTIN 875-125 MG TAB 1 tab by mouth twice daily with food 20 12/03/31 AUGMENTIN 875-125 MG TAB 878478 AMOXICILLIN-POT CLAVULA EFE Inactive CHERATUSSIN AC 100-10 MG/5ML SYRP take one tsp po Q 6hours prn c ough CHERATUSSIN AC 100-10 MG/5ML SYRP 235907 GUAIFENESIN-CO DEINE Inactive PROPRANOLOL HCL 60 MG TABS 1 PO Q D P ROPRANOLOL HCL 60 MG TABS 716760 PROPRANOLOL HCL Inactive TOPAMAX 50 MG TABS take 1 tab po BID for migraines. 12/07/10 TOPAMAX 50 MG TABS 465422 TOPIRAMATE Inactive TOPAMAX 25 MG TABS 1 qHS x 1 week, then 1 BID x 1 week, then 1 qAM and 2 qHS x 1 week, then 2 BID (migraine prevention) TOPAMAX 2 5 MG TABS 353222 TOPIRAMATE Inactive LYRICA 75 MG CAPS TAKE 1 CAPSULE BY MOUTH TWICE DAILY LYRICA 75 MG CAPS PREGABALIN Inactive SYMBICORT 160-4.5 MCG/ACT AERO 2 puffs bid with rinse after 2011 SYMBICORT 160-4.5 MCG/ACT AERO BUDESONIDE-FORMOT SÁNCHEZ FUMARATE Inactive PROMETHAZINE-CODEINE 6.25-10 MG/5ML SYRP 1 tsp by mouth ever y 8 hours prn cough PROMETHAZINE-CODEINE 6.25-10 MG/5ML SYRP 770719 PROMETHAZINE-CODEINE Inactive CYMBALTA 30 MG CPEP 1 cap by mouth daily CYMBALTA 30 MG CPEP 697641 DULOXETINE HCL Inactive PREMARIN 0.625 MG TABS TAKE 1 TAB BY MOUTH DAILY 07/25 PREMARIN 0.625 MG TABS ESTROGENS CONJUGATED Inactive CHERATUSSIN AC 100-10 MG/5ML SYRP 1 tsp by mouth every 4 hours as needed for cough CHERATUSSIN AC 100-10 MG/5ML SYRP 696184 GUAIFENESIN-CODEINE Inactive PROMETHAZINE-CODEINE 6.25-10 MG/5ML SYRP 1 tsp by mout h every 6 hours if needed for cough PROMETHAZINE-CODEINE 6.25-10 MG/5ML SYRP 832616 PROMETHAZINE-CODEINE Inactive CHERATUSSIN AC 100-10 MG/5ML SYRP 1 tsp by mouth every 4 hours as needed for cough CHERATUSSIN AC 100-10 MG/5ML SYRP 152453 GUAIFENESIN-CODEINE Inactive FLUTICASONE PROPIONATE 50 MCG/ACT SUSP 1 to 2 sprays each no stril daily FLUTICASONE PROPIONATE 50 MCG/ACT SUSP 0728696 FLUTICASONE PROPIONATE Inactive PREDNISONE 20 MG ORAL TABS 3 tab PO qd x 2d, 2 tab PO qd x 2d, 1 tab PO qd x 2d, 1/2 tab PO qd x 2d PREDNISONE 20 MG ORAL TABS 303893 PREDNISONE Inactive LEVOFLOXACIN 500 MG ORAL TABS 1 tab PO daily x 10 days LEVOFLOXACIN 500 MG ORAL TABS 490843 LEVOFLOXACIN Inactive CYCLOBENZAPRINE HCL 10 MG TABS 1 tablet by mouth BID prn had cherelle n CYCLOBENZAPRINE HCL 10 MG TABS 286783 CYCLOBENZAPRINE H CL Inactive ZOCOR 40 MG TAB 1 tab by mouth daily ZOCOR 40 M G TAB 149455 SIMVASTATIN Inactive TUSSIONEX PENNKINETIC ER 10-8 MG/5ML [...] empty FLUTICASONE PROPIONATE 50 MCG/ACT SUSP 17 69767 FLUTICASONE PROPIONATE Inactive TUSSIONEX PENNKINETIC ER 10-8 [...] 201 04/09/17 ZITHROMAX Z-REYNA 250 MG TABS 8317158 AZITHROMYCIN Inac tive CEFDINIR 300 MG CAPS [...] q days 2-5 ZITHROMAX 250 MG TAB 0387851 AZITHROMYCIN Inactive CEFDINIR 300 MG CAPS by mouth twice a day CEFDINIR 300 MG CAPS 20020704 CEFDINIR Inactive PREDNISONE 20 MG TAB 2 tabs daily for 3 days, 1 t ab daily for 3 days, 1/2 tab daily for 2 days PREDNISONE 20 MG TAB 364712 PREDNISON E Inactive AVELOX 400 MG TABS 1 tab by mouth daily A VELOX 400 MG TABS 599036 MOXIFLOXACIN HCL Inactive AVELOX 400 MG TABS 1 tab by mouth daily A VELOX 400 MG TABS 595787 MOXIFLOXACIN HCL Inactive PREDNISONE 20 MG TAB Take 3 tabs daily for 3 days , 2 tabs daily for 3 days, 1 tab daily for 3 days, 1/2 tab daily for 3 days PREDNISONE 20 MG TAB 118624 PREDNISONE Inactive LEVAQUIN 500 MG TABS take one po QD LEVAQUIN 50 0 MG TABS 381860 LEVOFLOXACIN Inactive AZITHROMYCIN 250 MG TABS 2 po qd x 1 day, then 1 po qd x 4 days AZITHROMYCIN 250 MG TABS 6321703 AZITHROMYCIN Inactiv e MEDROL (REYNA) 4 MG TABS 6 tabs on day 1, 5 tabs on d ay 2, 4 tabs on day 3, 3 tabs on day 4, 2 tabs on day 5, 1 tab on day 6 MEDROL (REYNA) 4 MG TABS 236965 METHYLPREDNISOLONE Inactive CHERATUSSIN AC 100-10 MG/5ML SYRP 5ml po q6hr PRN Cough CHERATUSSIN AC 100-10 MG/5ML SYRP 903667 GUAIFENESIN-CODEINE Inacti ve TRIAMCINOLONE ACETONIDE 0.1 % CREA apply three times daily prn r beatrice TRIAMCINOLONE ACETONIDE 0.1 % CREA 0845443 TRIAMCINOLONE ACETONIDE Inactive AZITHROMYCIN 250 MG TABS 2 po qd x 1 day, then 1 po qd x 4 days AZITHROMYCIN 250 MG TABS 0534164 AZITHROMYCIN Inactiv e MEDROL (REYNA) 4 MG TABS 6 pills x 1 day, then 5 pill s x 1 day then 4 pills x 1 day, then 3 pills x 1 day, then 2 pills x 1 day, then 1 pill x 1 day, then stop MEDROL (REYNA) 4 MG TABS 657276 METHYLPREDNISOLONE Inactive AMOXICILLIN 500 MG CAP 1 tab by mouth 3 times daily x 10 days 20 13/03/08 AMOXICILLIN 500 MG CAP 336087 AMOXICILLIN Inactive AMOXICILLIN 500 MG CAP 1 tab by mouth 3 times daily x 10 days 20 14/04/28 AMOXICILLIN 500 MG CAP 181978 AMOXICILLIN Inactive ZITHROMAX 250 MG TAB 2 po today, then 1 po q days 2-5 ZITHROMAX 250 MG TAB 9240902 AZITHROMYCIN Inactive AUGMENTIN 875-125 MG TAB 1 po BID x 10 days AUGMENTIN 875- 125 MG TAB 799370 AMOXICILLIN-POT CLAVULANATE Inactive ZITHROMAX Z-REYNA 250 MG TABS 2 today, then 1 daily for 4 days 201 08/07/20 ZITHROMAX Z-REYNA 250 MG TABS 8354275 AZITHROMYCIN Inac tive ZITHROMAX 250 MG TAB 2 po today, then 1 po q days 2-5 ZITHROMAX 250 MG TAB 9020154 AZITHROMYCIN Inactive ZITHROMAX Z-REYNA 250 MG TABS 2 today, then 1 daily for 4 days 201 08/30/03 ZITHROMAX Z-REYNA 250 MG TABS 4195877 AZITHROMYCIN Inac tive CEFDINIR 300 MG CAPS 1 po BID x 10 days C EFDINIR 300 MG CAPS 20020704 CEFDINIR Inactive ZITHROMAX 250 MG TAB 2 po today, then 1 po q days 2-5 ZITHROMAX 250 MG TAB 7767185 AZITHROMYCIN Inactive LEVAQUIN 500 MG TAB 1 tablet by mouth daily LEVAQUIN 500 MG TAB 928145 LEVOFLOXACIN Inactive SINGULAIR 10 MG TABS 1 po qday for allergies 2 SINGULAIR 10 MG TABS 247387 MONTELUKAST SODIUM Inactive AMOXICILLIN 500 MG CAPS 2 po BID x 10 days AMOXICILLIN 500 MG CAPS 129709 AMOXICILLIN Inactive PREDNISONE 20 MG TAB 2 tabs daily for 3 days, 1 t ab daily for 3 days, 1/2 tab daily for 2 days PREDNISONE 20 MG TAB 047427 PREDNISON E Inactive ZITHROMAX Z-REYNA 250 MG TABS 2 today, then 1 daily for 4 days 201 09/29/14 ZITHROMAX Z-REYNA 250 MG TABS 3384882 AZITHROMYCIN Inac tive PREDNISONE 20 MG TAB 2 tabs daily for 3 days, 1 t ab daily for 3 days, 1/2 tab daily for 2 days PREDNISONE 20 MG TAB 015029 PREDNISON E Inactive ZITHROMAX 250 MG TAB 2 po today, then 1 po q days 2-5 ZITHROMAX 250 MG TAB 9919244 AZITHROMYCIN Inactive Vital Signs Date Name Value [...] - Chem istry sodium, serum 132 mmol/L 878-120 9150/07/12 potassium, serum 2.7 mmol/L 3.5-5.2 chloride, serum 93 mmol/L 98-107 carbon dioxide, venous blood 30.8 mmol/L 21.0-32 .0 blood glucose 107 mg/dL 65-110 calcium, serum 9.3 mg/dL 8.5-10.1 urea nitrogen, blood 12 mg/dL 7-18 creatinine, serum 1.00 mg/dL 0.60-1.30 sodium, serum 142 mmol/L 085-374 6597/07/17 potassium, serum 4.2 mmol/L 3.5-5.2 chloride, serum 106 mmol/L 98-107 carbon dioxide, venous blood 29.9 mmol/L 21.0-32 .0 blood glucose 108 mg/dL 65-110 calcium, serum 9.1 mg/dL 8.5-10.1 urea nitrogen, blood 11 mg/dL 7-18 creatinine, serum 0.81 mg/dL 0.60-1.30 Lab Report: Rapid Strep - Lab Microbial identification kit, rapid strep method Negative Negative Encounters Code Encounter Date Provider Facility CPT-75684 Level 3 Est. Patient 12:17:50 CDT Hugo Restrepo MD [facility] CPT-14733 Level 3 Est. Patient 13:42:38 CDT Italo [facility] CPT-31390 Level 3 Est. Patient 13:23:51 CDT Diya cobian [facility] CPT-60754 Level 3 Est. Patient 14:22:19 HEALTH SOCIAL WORK PROFESSOR Diya cobian [facility] CPT-41354 Level 3 Est. Patient 10:11:46 CDT Carlton rich MD [facility] CPT-40882 Level 3 Est. Patient 17:29:43 CDT Italo [facility] CPT-46703 Level 3 Est. Patient 11:58:06 CDT Italo [facility] CPT-69663 Level 4 Est. Patient 14:36:51 CDT Carlton rich MD [facility]-01128 Level 3 Est. Patient 18:16:00 HEALTH SOCIAL WORK PROFESSOR Blaine Freeman [facility]-64206 Level 3 Est. Patient 09:45:49 HEALTH SOCIAL WORK PROFESSOR Carlton rich MD [facility]-29478 Level 3 Est. Patient 13:19:20 CDT Carlton rich MD [facility]-54632 Level 3 Est. Patient 13:06:43 CDT Ridge tam DO [facility]-01859 Level 3 Est. Patient 10:03:07 CDT Perez Mora MD [facility]-15477 Level 3 Est. Patient 19:50:35 HEALTH SOCIAL WORK PROFESSOR Carlton rich MD [facility]-69864 Level 4 Est. Patient 18:05:01 HEALTH SOCIAL WORK PROFESSOR Carlton rich MD [facility]-07392 Level 3 Est. Patient 10:45:55 HEALTH SOCIAL WORK PROFESSOR Hugo Restrepo MD [facility]-88145 Level 3 Est. Patient 14:12:49 CDT Griffin lincoln [facility]-44805 Level 3 Est. Patient 17:37:24 CDT Carlton rich MD [facility]-80420 Level 3 Est. Patient 16:51:54 CDT Carlton rich MD [facility]-80043 Level 3 Est. Patient 12:18:11 CDT Hugo Restrepo MD [facility]-53699 Level 3 Est. Patient 11:30:25 CDT Marcy crisostomo MD PhD [facility]-10162 Level 3 Est. Patient 12:00:47 HEALTH SOCIAL WORK PROFESSOR Carlton rich MD [facility] CPT-39044 Level 3 Est. Patient 16:31:06 HEALTH SOCIAL WORK PROFESSOR Carlton rich MD [facility] CPT-79291 Level 3 Est. 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 Patient 12:34:12 CDT Carlton rich MD [facility] CPT-21259 Level 2 Est. Patient 15:43:33 CDT Robi armstrong MD [facility] CPT-46491 Level 4 Est. Patient 14:04:44 CDT Carlton rich MD [facility] CPT-61901 Level 3 Est. Patient 05:47:59 CDT Ridge tam [facility] CPT-68149 Level 3 Est. Patient 13:12:53 [employer] WORK PROFESSOR Carlton rich MD [facility] CPT-37188 Level 3 Est. Patient 14:26:53 CDT Hugo [...] CPT-J1100 Decadron 6mg (Dexamethasone) 14:32:13 CDT 2 CPT-51895 Hip bilat min 2V w AP pelvis 13:16:20 CDT 2 CPT-91434 Pelvis only 13:07:33 CDT CPT-93309 Spec Collection and Handling Fee 11:25:12 C DT CPT-58501 Fluzone Quadrivalent Intramuscular Suspe nsion 0.5 ML 14:31:55 CDT CPT-18533 Abx/Therapy Injection 13:28:47 HE[employer] SOC[employer] WORK PROFESSOR CPT-J2930 Solu Medrol 125 mg (Methyl Prednisolone Sodium Succinate) 12:00:47 HE[employer] SOC[employer] WORK PROFESSOR CPT-75120 Venipuncture Draw Fee 11:33:31 CDT CPT-87031 EKG Trac and Interp 11:21:09 CDT CPT-42106 Chest 2V Frontal and Lat 11:21:09 CDT 12/15 CPT-81921 Venipuncture Draw Fee 08:02:34 CDT CPT-32474 Chest 2V Frontal and Lat 05:47:59 CDT 06/05
--- OUTSIDE RECORDS SUMMARY | 2019-10-08 10:08 | XMS REPORT | Clinical Summary ---
Author Author Caitlin, Juliana Martinez Organization [facility] Address Unknown Phone Unavailable Allergies, [...] times daily for 7 days POTASSIUM CHLORIDE [id number] Active Columba Raida Active TUSSIONEX PENNKINETIC ER 10-8 MG/5ML LQCR 5ml po q12hr PRN Cough 20 14/09/04 HYDROCOD POLST-CHLORPHEN POLST 15370931902 Active Elise Whitmore APRN Active ZITHROMAX 250 MG TAB 2 po today, then 1 po q days 2-5 AZITHROMYCIN 24157934043 No Longer Active Elise Whitmore APRN Acti ve TUSSIONEX PENNKINETIC ER 10-8 MG/5ML LQCR 5 ml twice a day a s needed for cough HYDROCOD POLST-CHLORPHEN POLST 49395342132 N o Longer Active Elise Whitmore APRN Active MONTELUKAST SODIUM 10 MG ORAL TABS 1 po daily for Allergy 6 MONTELUKAST SODIUM 08505300005 Active Carlton Hu MD Ac tive TUSSIONEX PENNKINETIC ER 10-8 MG/5ML LQCR 5ml po q12hr PRN Cough HYDROCOD POLST-CHLORPHEN POLST 97175178503 No Longer Active Hugo Restrepo MD Active GABAPENTIN 100 MG CAPS 1 po BID for fibromyalgia GABAPENTIN 39839542368 Active Elise Whitmore APRN Active LYRICA 100 MG CAPS Take 1 tab po BID for fibromyalgia PREGABALIN 40453199233 No Longer Active Elise Whitmore APRN Acti ve PROAIR HFA 108 (90 BASE) MCG/ACT AERS 2 puffs four times a d ay as needed ALBUTEROL SULFATE 66857347178 Active Elise Whitmore APRN Active MUCINEX DM MAXIMUM STRENGTH 60-1200 MG [id number] 1 tab po q am 2016 DEXTROMETHORPHAN-GUAIFENESIN 45692032449 Active Jillina Frazell [employer]EIGN LEGAL CONSULTANT Active PREDNISONE 20 MG TAB 2 tabs daily for 3 days, 1 t ab daily for 3 days, 1/2 tab daily for 2 days PREDNISONE 10110526261 No Longer Active Jillina Frazell FOREIGN LEGAL CONSULTANT Active TUSSIONEX PENNKINETIC ER 10-8 MG/5ML ORAL LQCR 5 mL PO q 12 hrs PRN cough HYDROCOD POLST-CHLORPHEN POLST 62126946333 No Longer Active Jillina Frazell FOREIGN LEGAL CONSULTANT Active FLUTICASONE PROPIONATE 50 MCG/ACT SUSP 2 sprays each n ostril daily until bottle is empty FLUTICASONE PROPIONATE 15537470805 No Longer Ac tive Jillina Frazell FOREIGN LEGAL CONSULTANT Active ASMANEX 60 METERED DOSES 220 MCG/INH AEPB 1 puff bid with ri nse after MOMETASONE FUROATE 02012521665 No Longer Active Diya meneses FOREIGN LEGAL CONSULTANT Active ZITHROMAX Z-REYNA 250 MG TABS 2 today, then 1 daily for 4 days 201 09/29/14 AZITHROMYCIN 49452739030 No Longer Active Elise Whitmore FOREIGN LEGAL CONSULTANT Active TUSSIONEX PENNKINETIC ER 10-8 MG/5ML LQCR 5ml po q12hr PRN Cough HYDROCOD POLST-CHLORPHEN POLST 65317567196 No Longer Active Elise Whitmore FOREIGN LEGAL CONSULTANT Active MUCINEX D 60-600 MG [id number] 1 tab po q am PSEUDOEPHEDRINE-GUAIFENESIN 06960720077 Active Diya De Guzman FOREIGN LEGAL CONSULTANT Active PREDNISONE 20 MG TAB 2 tabs daily for 3 days, 1 t ab daily for 3 days, 1/2 tab daily for 2 days PREDNISONE 82796345853 No Longer Active Diya De Guzman FOREIGN LEGAL CONSULTANT Active AMOXICILLIN 500 MG CAPS 2 po BID x 10 days AMOX ICILLIN 21651389982 No Longer Active Diya De Guzman FOREIGN LEGAL CONSULTANT Active SINGULAIR 10 MG TABS 1 po qday for allergies 2 MONTELUKAST SODIUM 07159279591 No Longer Active Carlton Hu MD Acti ve LEVAQUIN 500 MG TAB 1 tablet by mouth daily LEV OFLOXACIN 35986503356 No Longer Active Carlton Hu MD Active FLUTICASONE PROPIONATE 50 MCG/ACT SUSP 2 sprays each n ostril daily for 2 weeks, then 1 spray each nostril daily. FLUTICASONE PRO PIONATE 22457467321 Active Elise Whitmore APRN Active ZITHROMAX 250 MG TAB 2 po today, then 1 po q days 2-5 AZITHROMYCIN 43979157894 No Longer Active Elise Whitmore APRN Acti ve XANAX 0.5 MG TABS one tablet by mouth daily prn anxiety ALPRAZOLAM 48169599754 Active Elise Whitmore APRN Active CYMBALTA 30 MG CPEP 1 cap by mouth daily for depression DULOXETINE HCL 01864376002 Active Carlton Hu MD Active CEFDINIR 300 MG CAPS 1 po BID x 10 days CEFDINI R 11803403335 No Longer Active Carlton Hu MD Active ZOCOR 40 MG TAB 1 tab by mouth daily SIMVASTATI N 65184814701 No Longer Active Carlton Hu MD Active CYCLOBENZAPRINE HCL 10 MG TABS 1 tablet by mouth BID prn had cherelle n CYCLOBENZAPRINE HCL 69486392336 No Longer Active Carlton Hu MD Active LEVOFLOXACIN 500 MG ORAL TABS 1 tab PO daily x 10 days LEVOFLOXACIN 60121543946 No Longer Active Carlton Hu MD Acti ve PREDNISONE 20 MG ORAL TABS 3 tab PO qd x 2d, 2 tab PO qd x 2d, 1 tab PO qd x 2d, 1/2 tab PO qd x 2d PREDNISONE 88252433675 No Longer Active Carlton Hu MD Active FLUTICASONE PROPIONATE 50 MCG/ACT SUSP 1 to 2 sprays each no stril daily FLUTICASONE PROPIONATE 18614253856 No Longer Active T jaz HERNANDEZ Active CHERATUSSIN AC 100-10 MG/5ML SYRP 1 tsp by mouth every 4 hours as needed for cough GUAIFENESIN-CODEINE 17150033783 No Longer Activ e Blaine HERNANDEZ Active PROMETHAZINE-CODEINE 6.25-10 MG/5ML SYRP 1 tsp by mout h every 6 hours if needed for cough PROMETHAZINE-CODEINE 22082627280 No Long er Active Blaine HERNANDEZ Active CHERATUSSIN AC 100-10 MG/5ML SYRP 1 tsp by mouth every 4 hours as needed for cough GUAIFENESIN-CODEINE 08942064780 No Longer Activ e Blaine HERNANDEZ Active ZITHROMAX Z-REYNA 250 MG TABS 2 today, then 1 daily for 4 days 201 08/30/03 AZITHROMYCIN 27284154857 No Longer Active Columba Raida Act nael ZITHROMAX 250 MG TAB 2 po today, then 1 po q days 2-5 AZITHROMYCIN 68901050441 No Longer Active Carlton Hu MD Acti ve ZITHROMAX Z-REYNA 250 MG TABS 2 today, then 1 daily for 4 days 201 08/07/20 AZITHROMYCIN 11379710249 No Longer Active Columba Raida Act nael AUGMENTIN 875-125 MG TAB 1 po BID x 10 days AMOXICILLIN- POT CLAVULANATE 18758406143 No Longer Active Jillshakira Sernazell FOREIGN LEGAL CONSULTANT Active ZITHROMAX 250 MG TAB 2 po today, then 1 po q days 2-5 AZITHROMYCIN 17000468342 No Longer Active Carlton Hu MD Acti ve TRAMADOL HCL 50 MG TABS 1 po tid with ES Tylenol TRAMADOL HCL 01689408741 Active Carlton Hu MD Active PREMARIN 0.625 MG TABS TAKE 1 TAB BY MOUTH DAILY 07/25 ESTROGENS CONJUGATED 59830047615 No Longer Active Ridge Bess DO Active CYMBALTA 30 MG CPEP 1 cap by mouth daily DULOXE SNEHA HCL 69665874133 No Longer Active Ridge Bess DO Active AMOXICILLIN 500 MG CAP 1 tab by mouth 3 times daily x 10 days 20 14/04/28 AMOXICILLIN 82098758367 No Longer Active Carlton Hu MD Active AMOXICILLIN 500 MG CAP 1 tab by mouth 3 times daily x 10 days 20 13/03/08 AMOXICILLIN 68210676467 No Longer Active Carlton Hu MD Active PROMETHAZINE-CODEINE 6.25-10 MG/5ML SYRP 1 tsp by mouth ever y 8 hours prn cough PROMETHAZINE-CODEINE 42998404572 No Longer Active Robert Hu MD Active MEDROL (REYNA) 4 MG TABS 6 pills x 1 day, then 5 pill s x 1 day then 4 pills x 1 day, then 3 pills x 1 day, then 2 pills x 1 day, then 1 pill x 1 day, then stop METHYLPREDNISOLONE 69722316605 No Longer Active Parris Mora MD Active AZITHROMYCIN 250 MG TABS 2 po qd x 1 day, then 1 po qd x 4 days AZITHROMYCIN 33815278791 No Longer Active Perez Mora MD Active SYMBICORT 160-4.5 MCG/ACT AERO 2 puffs bid with rinse after 2011 BUDESONIDE-FORMOTEROL FUMARATE 46293899649 No Longer Active Perez Mora MD Active LYRICA 75 MG CAPS TAKE 1 CAPSULE BY MOUTH TWICE DAILY 2013 PREGABALIN 75335434183 No Longer Active Carlton Hu MD Active TOPAMAX 25 MG TABS 1 qHS x 1 week, then 1 BID x 1 week, then 1 qAM and 2 qHS x 1 week, then 2 BID (migraine prevention) TOPIRAMAT E 73987788895 No Longer Active Jerica FUENTES Active TOPAMAX 50 MG TABS take 1 tab po BID for migraines. 12/07/10 TOPIRAMATE 69657882284 No Longer Active Jerica FUENTES Ac tive TOPAMAX 100 MG TABS Take 1 tablet po bid TOPIRAMATE 4999 0885200 Active Elise Whitmore FOREIGN LEGAL CONSULTANT Active TRIAMCINOLONE ACETONIDE 0.1 % CREA apply three times daily prn r beatrice TRIAMCINOLONE ACETONIDE 01891178002 No Longer Active Carlton Hu MD Active PAXIL 40 MG TAB take 1 tab po qday for depression PAROXETINE HCL 71853676556 Active Carlton Hu MD Active CHERATUSSIN AC 100-10 MG/5ML SYRP 5ml po q6hr PRN Cough GUAIFENESIN-CODEINE 82608072616 No Longer Active Carlton Hu MD Active MEDROL (REYNA) 4 MG TABS 6 tabs on day 1, 5 tabs on d ay 2, 4 tabs on day 3, 3 tabs on day 4, 2 tabs on day 5, 1 tab on day 6 METHYLPREDNISOLONE 40399053649 No Longer Active Perez Mora MD Active AZITHROMYCIN 250 MG TABS 2 po qd x 1 day, then 1 po qd x 4 days AZITHROMYCIN 97859152632 No Longer Active Perez Mora MD Active PROPRANOLOL HCL 60 MG TABS 1 PO Q D PROPRANOL OL HCL 64250677013 No Longer Active Perez Mora MD Active CHERATUSSIN AC 100-10 MG/5ML SYRP take one tsp po Q 6hours prn c ough GUAIFENESIN-CODEINE 10603071269 No Longer Active Perez Means Active AUGMENTIN 875-125 MG TAB 1 tab by mouth twice daily with food 20 12/03/31 AMOXICILLIN-POT CLAVULANATE 84880165310 No Longer Active Chanel Mora MD Active CHERATUSSIN AC 100-10 MG/5ML SYRP 1 tsp by mouth every 4 hours as needed for cough GUAIFENESIN-CODEINE 49448648828 No Longer Activ e Hugo Restrepo MD Active ACETAMINOPHEN-CODEINE #3 300-30 MG TABS 1 PO Q 4-6 HRS PRN PAIN ACETAMINOPHEN-CODEINE 60540967984 No Longer Active Hugo Restrepo MD Active LEVAQUIN 500 MG TABS take one po QD LEVOFLOXACI N 43766246994 No Longer Active Griffin HERNANDEZ Active PREDNISONE 20 MG TAB Take 3 tabs daily for 3 days , 2 tabs daily for 3 days, 1 tab daily for 3 days, 1/2 tab daily for 3 days P REDNISONE 22958806558 No Longer Active Carlton Hu MD Active AVELOX 400 MG TABS 1 tab by mouth daily MOXIFLO XACIN HCL 70501064291 No Longer Active Carlton Hu MD Active CHERATUSSIN AC 100-10 MG/5ML SYRP 1 tsp by mouth every 4 hours as needed for cough GUAIFENESIN-CODEINE 55384539811 No Longer Activ e Hugo Restrepo MD Active AVELOX 400 MG TABS 1 tab by mouth daily MOXIFLO XACIN HCL 27379619317 No Longer Active Marcy De La Rosa MD PhD Active TERBINAFINE HCL 250 MG TABS 1 qDay TERBINAF INE HCL 36891076988 No Longer Active Marcy De La Rosa MD PhD Active CHERATUSSIN AC 100-10 MG/5ML SYRP 1 tsp by mouth every 4 hours as needed for cough GUAIFENESIN-CODEINE 93150778095 No Longer Activ e Marcy De La Rosa MD PhD Active AVELOX 400 MG TABS 1 tab by mouth daily MOXIFLO XACIN HCL 13768964293 No Longer Active Marcy De La Rosa MD PhD Active HYDROCODONE-ACETAMINOPHEN 5-325 MG TABS 1 po q 6hr PRN cough 201 05/09/16 HYDROCODONE-ACETAMINOPHEN 31863959329 No Longer Active Marcy De La Rosa MD PhD Active PREDNISONE 20 MG TAB 2 tabs daily for 3 days, 1 t ab daily for 3 days, 1/2 tab daily for 2 days PREDNISONE 85952440300 No Longer Active Carlton Hu MD Active CEFDINIR 300 MG CAPS by mouth twice a day CEFDI ODILIA 75489951462 No Longer Active Carlton Hu MD Active HYDROCHLOROTHIAZIDE 25 MG TABS 1 TAB PO DAILY H YDROCHLOROTHIAZIDE 10192673088 Active Carlton Hu MD Active ACETAMINOPHEN-CODEINE #3 300-30 MG TABS 1 tablet po q 4-6hrs prn pain ACETAMINOPHEN-CODEINE 63281382000 No Longer Active Ridge Bess DO Active ZITHROMAX 250 MG TAB 2 po today, then 1 po q days 2-5 AZITHROMYCIN 90392949566 No Longer Active Carlton Hu MD Acti ve CHERATUSSIN AC 100-10 MG/5ML SYRP take 1 tsp po q4-6 hours prn c ough GUAIFENESIN-CODEINE 22747936791 No Longer Active Carlton Hu MD Active ACETAMINOPHEN-CODEINE #3 300-30 MG TABS 1 PO Q 4-6 HR PRN PAIN 2 ACETAMINOPHEN-CODEINE 11880042851 No Longer Active Carlton rich MD Active LORTAB 7.5-500 MG/15ML ELIX 7.5 ml po q 4 hour prn cough HYDROCODONE-ACETAMINOPHEN 00926886610 No Longer Active Carlton Hu MD Active PREDNISONE 20 MG TAB 1 po bid 3 days, then 1 po q day 3 days 201 05/03/07 PREDNISONE 95319627588 No Longer Active Carlton Hu MD Active ELMIRON 100 MG CAPS 2 tablets in the am and 1 tablet at hs PENTOSAN POLYSULFATE SODIUM 29072273988 Active Carlton Hu MD Ac tive CEFDINIR 300 MG CAPS by mouth twice a day CEFDI ODILIA 97604458533 No Longer Active Carlton Hu MD Active CEFDINIR 300 MG CAPS by mouth twice a day CEFDI ODILIA 81432998309 No Longer Active Carlton Hu MD Active CEFDINIR 300 MG CAPS by mouth twice a day CEFDI ODILIA 64759439687 No Longer Active Carlton Hu MD Active TESSALON PERLES 100 MG CAP 1 tablet by mouth 3 times daily a s needed for cough BENZONATATE 70355260047 No Longer Active Carlton bustamante MD Active CEFDINIR 300 MG CAPS by mouth twice a day CEFDI ODILIA 52811915417 No Longer Active Carlton Hu MD Active ZITHROMAX Z-REYNA 250 MG TABS 2 today, then 1 daily for 4 days 201 04/09/17 AZITHROMYCIN 43237330013 No Longer Active Hugo Restrepo MD Active TESSALON PERLES 100 MG CAP 1 tablet by mouth 3 times daily a s needed for cough TESSALON PERLES 100 MG CAP 372886 BENZONATATE I nactive PREDNISONE 20 MG TAB 1 po bid 3 days, then 1 po q day 3 days 201 05/03/07 PREDNISONE 20 MG TAB 112490 PREDNISONE Inactive LORTAB 7.5-500 MG/15ML ELIX 7.5 ml po q 4 hour prn cough LORTAB 7.5-500 MG/15ML ELIX HYDROCODONE-ACETAMINOPHEN Inacti ve ACETAMINOPHEN-CODEINE #3 300-30 MG TABS 1 PO Q 4-6 HR PRN PAIN 2 ACETAMINOPHEN-CODEINE #3 300-30 MG TABS ACETAMIN OPHEN-CODEINE Inactive CHERATUSSIN AC 100-10 MG/5ML SYRP take 1 tsp po q4-6 hours prn c ough CHERATUSSIN AC 100-10 MG/5ML SYRP 962433 GUAIFENESIN-CO DEINE Inactive ACETAMINOPHEN-CODEINE #3 300-30 MG TABS 1 tablet po q 4-6hrs prn pain ACETAMINOPHEN-CODEINE #3 300-30 MG TABS ACETAMIN OPHEN-CODEINE Inactive HYDROCODONE-ACETAMINOPHEN 5-325 MG TABS 1 po q 6hr PRN cough 201 05/09/16 HYDROCODONE-ACETAMINOPHEN 5-325 MG TABS 675101 HYDROCODONE-ACETAMINOPHEN Inactive AVELOX 400 MG TABS 1 tab by mouth daily A VELOX 400 MG TABS 594252 MOXIFLOXACIN HCL Inactive CHERATUSSIN AC 100-10 MG/5ML SYRP 1 tsp by mouth every 4 hours as needed for cough CHERATUSSIN AC 100-10 MG/5ML SYRP 194507 GUAIFENESIN-CODEINE Inactive TERBINAFINE HCL 250 MG TABS 1 qDay TERBINAFINE HCL 250 MG TABS 253083 TERBINAFINE HCL Inactive CHERATUSSIN AC 100-10 MG/5ML SYRP 1 tsp by mouth every 4 hours as needed for cough CHERATUSSIN AC 100-10 MG/5ML SYRP 259812 GUAIFENESIN-CODEINE Inactive ACETAMINOPHEN-CODEINE #3 300-30 MG TABS 1 PO Q 4-6 HRS PRN PAIN ACETAMINOPHEN-CODEINE #3 300-30 MG TABS ACETAMINOPHEN-CODEIN E Inactive CHERATUSSIN AC 100-10 MG/5ML SYRP 1 tsp by mouth every 4 hours as needed for cough CHERATUSSIN AC 100-10 MG/5ML SYRP 775924 GUAIFENESIN-CODEINE Inactive AUGMENTIN 875-125 MG TAB 1 tab by mouth twice daily with food 20 12/03/31 AUGMENTIN 875-125 MG TAB 755413 AMOXICILLIN-POT CLAVULA EFE Inactive CHERATUSSIN AC 100-10 MG/5ML SYRP take one tsp po Q 6hours prn c ough CHERATUSSIN AC 100-10 MG/5ML SYRP 398508 GUAIFENESIN-CO DEINE Inactive PROPRANOLOL HCL 60 MG TABS 1 PO Q D P ROPRANOLOL HCL 60 MG TABS 088404 PROPRANOLOL HCL Inactive TOPAMAX 50 MG TABS take 1 tab po BID for migraines. 12/07/10 TOPAMAX 50 MG TABS 455632 TOPIRAMATE Inactive TOPAMAX 25 MG TABS 1 qHS x 1 week, then 1 BID x 1 week, then 1 qAM and 2 qHS x 1 week, then 2 BID (migraine prevention) TOPAMAX 2 5 MG TABS 973134 TOPIRAMATE Inactive LYRICA 75 MG CAPS TAKE 1 CAPSULE BY MOUTH TWICE DAILY LYRICA 75 MG CAPS PREGABALIN Inactive SYMBICORT 160-4.5 MCG/ACT AERO 2 puffs bid with rinse after 2011 SYMBICORT 160-4.5 MCG/ACT AERO BUDESONIDE-FORMOT SÁNCHEZ FUMARATE Inactive PROMETHAZINE-CODEINE 6.25-10 MG/5ML SYRP 1 tsp by mouth ever y 8 hours prn cough PROMETHAZINE-CODEINE 6.25-10 MG/5ML SYRP 413608 PROMETHAZINE-CODEINE Inactive CYMBALTA 30 MG CPEP 1 cap by mouth daily CYMBALTA 30 MG CPEP 480330 DULOXETINE HCL Inactive PREMARIN 0.625 MG TABS TAKE 1 TAB BY MOUTH DAILY 07/25 PREMARIN 0.625 MG TABS ESTROGENS CONJUGATED Inactive CHERATUSSIN AC 100-10 MG/5ML SYRP 1 tsp by mouth every 4 hours as needed for cough CHERATUSSIN AC 100-10 MG/5ML SYRP 831586 GUAIFENESIN-CODEINE Inactive PROMETHAZINE-CODEINE 6.25-10 MG/5ML SYRP 1 tsp by mout h every 6 hours if needed for cough PROMETHAZINE-CODEINE 6.25-10 MG/5ML SYRP 027328 PROMETHAZINE-CODEINE Inactive CHERATUSSIN AC 100-10 MG/5ML SYRP 1 tsp by mouth every 4 hours as needed for cough CHERATUSSIN AC 100-10 MG/5ML SYRP 716238 GUAIFENESIN-CODEINE Inactive FLUTICASONE PROPIONATE 50 MCG/ACT SUSP 1 to 2 sprays each no stril daily FLUTICASONE PROPIONATE 50 MCG/ACT SUSP 0690568 FLUTICASONE PROPIONATE Inactive PREDNISONE 20 MG ORAL TABS 3 tab PO qd x 2d, 2 tab PO qd x 2d, 1 tab PO qd x 2d, 1/2 tab PO qd x 2d PREDNISONE 20 MG ORAL TABS 664873 PREDNISONE Inactive LEVOFLOXACIN 500 MG ORAL TABS 1 tab PO daily x 10 days LEVOFLOXACIN 500 MG ORAL TABS 402191 LEVOFLOXACIN Inactive CYCLOBENZAPRINE HCL 10 MG TABS 1 tablet by mouth BID prn had cherelle n CYCLOBENZAPRINE HCL 10 MG TABS 779685 CYCLOBENZAPRINE H CL Inactive ZOCOR 40 MG TAB 1 tab by mouth daily ZOCOR 40 M G TAB 584783 SIMVASTATIN Inactive TUSSIONEX PENNKINETIC ER 10-8 MG/5ML [...] empty FLUTICASONE PROPIONATE 50 MCG/ACT SUSP 17 74740 FLUTICASONE PROPIONATE Inactive TUSSIONEX PENNKINETIC ER 10-8 [...] 201 04/09/17 ZITHROMAX Z-REYNA 250 MG TABS 2526097 AZITHROMYCIN Inac tive CEFDINIR 300 MG CAPS [...] q days 2-5 ZITHROMAX 250 MG TAB 8948141 AZITHROMYCIN Inactive CEFDINIR 300 MG CAPS by mouth twice a day CEFDINIR 300 MG CAPS 20020704 CEFDINIR Inactive PREDNISONE 20 MG TAB 2 tabs daily for 3 days, 1 t ab daily for 3 days, 1/2 tab daily for 2 days PREDNISONE 20 MG TAB 624912 PREDNISON E Inactive AVELOX 400 MG TABS 1 tab by mouth daily A VELOX 400 MG TABS 752929 MOXIFLOXACIN HCL Inactive AVELOX 400 MG TABS 1 tab by mouth daily A VELOX 400 MG TABS 677881 MOXIFLOXACIN HCL Inactive PREDNISONE 20 MG TAB Take 3 tabs daily for 3 days , 2 tabs daily for 3 days, 1 tab daily for 3 days, 1/2 tab daily for 3 days PREDNISONE 20 MG TAB 707518 PREDNISONE Inactive LEVAQUIN 500 MG TABS take one po QD LEVAQUIN 50 0 MG TABS 982859 LEVOFLOXACIN Inactive AZITHROMYCIN 250 MG TABS 2 po qd x 1 day, then 1 po qd x 4 days AZITHROMYCIN 250 MG TABS 5450002 AZITHROMYCIN Inactiv e MEDROL (REYNA) 4 MG TABS 6 tabs on day 1, 5 tabs on d ay 2, 4 tabs on day 3, 3 tabs on day 4, 2 tabs on day 5, 1 tab on day 6 MEDROL (REYNA) 4 MG TABS 123535 METHYLPREDNISOLONE Inactive CHERATUSSIN AC 100-10 MG/5ML SYRP 5ml po q6hr PRN Cough CHERATUSSIN AC 100-10 MG/5ML SYRP 873169 GUAIFENESIN-CODEINE Inacti ve TRIAMCINOLONE ACETONIDE 0.1 % CREA apply three times daily prn r beatrice TRIAMCINOLONE ACETONIDE 0.1 % CREA 3798093 TRIAMCINOLONE ACETONIDE Inactive AZITHROMYCIN 250 MG TABS 2 po qd x 1 day, then 1 po qd x 4 days AZITHROMYCIN 250 MG TABS 3802947 AZITHROMYCIN Inactiv e MEDROL (REYNA) 4 MG TABS 6 pills x 1 day, then 5 pill s x 1 day then 4 pills x 1 day, then 3 pills x 1 day, then 2 pills x 1 day, then 1 pill x 1 day, then stop MEDROL (REYNA) 4 MG TABS 434446 METHYLPREDNISOLONE Inactive AMOXICILLIN 500 MG CAP 1 tab by mouth 3 times daily x 10 days 20 13/03/08 AMOXICILLIN 500 MG CAP 506995 AMOXICILLIN Inactive AMOXICILLIN 500 MG CAP 1 tab by mouth 3 times daily x 10 days 20 14/04/28 AMOXICILLIN 500 MG CAP 499262 AMOXICILLIN Inactive ZITHROMAX 250 MG TAB 2 po today, then 1 po q days 2-5 ZITHROMAX 250 MG TAB 2171493 AZITHROMYCIN Inactive AUGMENTIN 875-125 MG TAB 1 po BID x 10 days AUGMENTIN 875- 125 MG TAB 925401 AMOXICILLIN-POT CLAVULANATE Inactive ZITHROMAX Z-REYNA 250 MG TABS 2 today, then 1 daily for 4 days 201 08/07/20 ZITHROMAX Z-REYNA 250 MG TABS 7215913 AZITHROMYCIN Inac tive ZITHROMAX 250 MG TAB 2 po today, then 1 po q days 2-5 ZITHROMAX 250 MG TAB 0631885 AZITHROMYCIN Inactive ZITHROMAX Z-REYNA 250 MG TABS 2 today, then 1 daily for 4 days 201 08/30/03 ZITHROMAX Z-REYNA 250 MG TABS 8889188 AZITHROMYCIN Inac tive CEFDINIR 300 MG CAPS 1 po BID x 10 days C EFDINIR 300 MG CAPS 20020704 CEFDINIR Inactive ZITHROMAX 250 MG TAB 2 po today, then 1 po q days 2-5 ZITHROMAX 250 MG TAB 8066486 AZITHROMYCIN Inactive LEVAQUIN 500 MG TAB 1 tablet by mouth daily LEVAQUIN 500 MG TAB 018459 LEVOFLOXACIN Inactive SINGULAIR 10 MG TABS 1 po qday for allergies 2 SINGULAIR 10 MG TABS 208024 MONTELUKAST SODIUM Inactive AMOXICILLIN 500 MG CAPS 2 po BID x 10 days AMOXICILLIN 500 MG CAPS 758076 AMOXICILLIN Inactive PREDNISONE 20 MG TAB 2 tabs daily for 3 days, 1 t ab daily for 3 days, 1/2 tab daily for 2 days PREDNISONE 20 MG TAB 099766 PREDNISON E Inactive ZITHROMAX Z-REYNA 250 MG TABS 2 today, then 1 daily for 4 days 201 09/29/14 ZITHROMAX Z-REYNA 250 MG TABS 2131856 AZITHROMYCIN Inac tive PREDNISONE 20 MG TAB 2 tabs daily for 3 days, 1 t ab daily for 3 days, 1/2 tab daily for 2 days PREDNISONE 20 MG TAB 898691 PREDNISON E Inactive ZITHROMAX 250 MG TAB 2 po today, then 1 po q days 2-5 ZITHROMAX 250 MG TAB 1209266 AZITHROMYCIN Inactive Vital Signs Date Name Value [...] - Chem istry sodium, serum 132 mmol/L 790-503 0227/07/12 potassium, serum 2.7 mmol/L 3.5-5.2 chloride, serum 93 mmol/L 98-107 carbon dioxide, venous blood 30.8 mmol/L 21.0-32 .0 blood glucose 107 mg/dL 65-110 calcium, serum 9.3 mg/dL 8.5-10.1 urea nitrogen, blood 12 mg/dL 7-18 creatinine, serum 1.00 mg/dL 0.60-1.30 sodium, serum 142 mmol/L 194-266 4508/07/17 potassium, serum 4.2 mmol/L 3.5-5.2 chloride, serum 106 mmol/L 98-107 carbon dioxide, venous blood 29.9 mmol/L 21.0-32 .0 blood glucose 108 mg/dL 65-110 calcium, serum 9.1 mg/dL 8.5-10.1 urea nitrogen, blood 11 mg/dL 7-18 creatinine, serum 0.81 mg/dL 0.60-1.30 Lab Report: Rapid Strep - Lab Microbial identification kit, rapid strep method Negative Negative Encounters Code Encounter Date Provider Facility [id number] Level 3 Est. Patient 12:17:50 CDT Hugo Restrepo MD [facility] CPT-78074 Level 3 Est. Patient 13:42:38 CDT Italo [facility] CPT-14963 Level 3 Est. Patient 13:23:51 CDT Diya cobian [facility] CPT-19663 Level 3 Est. Patient 14:22:19 SECURITY OPERATIONS ENGINEER Diya cobian [facility] CPT-47461 Level 3 Est. Patient 10:11:46 CDT Carlton rich MD [facility] CPT-09312 Level 3 Est. Patient 17:29:43 CDT Italo [facility] CPT-43933 Level 3 Est. Patient 11:58:06 CDT Italo [facility] CPT-56722 Level 4 Est. Patient 14:36:51 CDT Carlton rich MD [facility]-18854 Level 3 Est. Patient 18:16:00 SECURITY OPERATIONS ENGINEER Blaine Freeman [facility]-21974 Level 3 Est. Patient 09:45:49 SECURITY OPERATIONS ENGINEER Carlton rich MD [facility]-25491 Level 3 Est. Patient 13:19:20 CDT Carlton rich MD [facility]-32059 Level 3 Est. Patient 13:06:43 CDT Ridge tam DO [facility]-18821 Level 3 Est. Patient 10:03:07 CDT Perez Mora MD [facility]-22708 Level 3 Est. Patient 19:50:35 SECURITY OPERATIONS ENGINEER Carlton rich MD [facility]-72642 Level 4 Est. Patient 18:05:01 SECURITY OPERATIONS ENGINEER Carlton rich MD [facility]-15240 Level 3 Est. Patient 10:45:55 SECURITY OPERATIONS ENGINEER Hugo Restrepo MD [facility]-24383 Level 3 Est. Patient 14:12:49 CDT Griffin lincoln [facility]-51859 Level 3 Est. Patient 17:37:24 CDT Carlton rich MD [facility]-05574 Level 3 Est. Patient 16:51:54 CDT Carlton rich MD [facility]-85462 Level 3 Est. Patient 12:18:11 CDT Hugo Restrepo MD [facility]-22767 Level 3 Est. Patient 11:30:25 CDT Marcy crisostomo MD, PhD [facility]-10415 Level 3 Est. Patient 12:00:47 SECURITY OPERATIONS ENGINEER Carlton rich MD [facility] CPT-09189 Level 3 Est. Patient 16:31:06 SECURITY OPERATIONS ENGINEER Carlton rich MD [facility] CPT-48370 Level 3 Est. Patient 16:23:24 SECURITY OPERATIONS ENGINEER [facility] CPT-41096 Level 3 Est. Patient 12:34:12 CDT Carlton rich MD [facility] CPT-10683 Level 2 Est. Patient 15:43:33 CDT Robi armstrong MD [facility] CPT-00912 Level 4 Est. Patient 14:04:44 CDT Carlton rich MD [facility] CPT-61603 Level 3 Est. Patient 05:47:59 CDT [facility] CPT-02382 Level 3 Est. Patient 13:12:53 SECURITY OPERATIONS ENGINEER Carlton rich MD [facility] CPT-05523 Level 3 Est. Patient 14:26:53 CDT Hugo [...] CPT-J1100 Decadron 6mg (Dexamethasone) 14:32:13 CDT 2 CPT-24385 Hip bilat min 2V w AP pelvis 13:16:20 CDT 2 CPT-58193 Pelvis only 13:07:33 CDT CPT-60414 Spec Collection and Handling Fee 11:25:12 C DT CPT-72743 Fluzone Quadrivalent Intramuscular Suspe nsion 0.5 ML 14:31:55 CDT CPT-24150 Abx/Therapy Injection 13:28:47 SECURITY OPERATIONS ENGINEER CPT-J2930 Solu Medrol 125 mg (Methyl Prednisolone Sodium Succinate) 12:00:47 SECURITY OPERATIONS ENGINEER CPT-95454 Venipuncture Draw Fee 11:33:31 CDT CPT-05833 EKG Trac and Interp 11:21:09 CDT CPT-66441 Chest 2V Frontal and Lat 11:21:09 CDT 12/15 CPT-89531 Venipuncture Draw Fee 08:02:34 CDT CPT-56299 Chest 2V Frontal and Lat 05:47:59 CDT 06/05
--- OUTSIDE RECORDS SUMMARY | 2019-10-08 10:08 | XMS REPORT | Clinical Summary ---
Author Author Caitlin, Juliana Martinez Organization [facility] Address Unknown Phone Unavailable Allergies, Adverse Reactions, [...] po daily for Allergy 6 MONTELUKAST SODIUM [id number] Active ALFREDO Holly Act nael TUSSIONEX PENNKINETIC ER 10-8 MG/5ML LQCR 5 ml twice a day a s needed for cough HYDROCOD POLST-CHLORPHEN POLST 08607631463 Active Hugo Restrepo MD Active TUSSIONEX PENNKINETIC ER 10-8 MG/5ML LQCR 5ml po q12hr PRN Cough HYDROCOD POLST-CHLORPHEN POLST 85580717316 No Longer Active Hugo Restrepo MD Active GABAPENTIN 100 MG CAPS 1 po BID for fibromyalgia GABAPENTIN 55084985067 Active Elise Whitmore APRN Active LYRICA 100 MG CAPS Take 1 tab po BID for fibromyalgia PREGABALIN 81042617442 No Longer Active Elise Whitmore APRN Acti ve PROAIR HFA 108 (90 BASE) MCG/ACT AERS 2 puffs four times a d ay as needed ALBUTEROL SULFATE 59015601093 Active Diya De Guzman APR N Active MUCINEX DM MAXIMUM STRENGTH 60-1200 MG [id number] 1 tab po q am 2016 DEXTROMETHORPHAN-GUAIFENESIN 70698274571 Active Diya De Guzman ROLLER SKATER Active PREDNISONE 20 MG TAB 2 tabs daily for 3 days, 1 t ab daily for 3 days, 1/2 tab daily for 2 days PREDNISONE 80790590769 No Longer Active Diya De Guzman ROLLER SKATER Active TUSSIONEX PENNKINETIC ER 10-8 MG/5ML ORAL LQCR 5 mL PO q 12 hrs PRN cough HYDROCOD POLST-CHLORPHEN POLST 69758782648 No Longer Active Diya Guerrerol ROLLER SKATER Active FLUTICASONE PROPIONATE 50 MCG/ACT SUSP 2 sprays each n ostril daily until bottle is empty FLUTICASONE PROPIONATE 85564644044 No Longer Ac tive Diya Guerrerol ROLLER SKATER Active ASMANEX 60 METERED DOSES 220 MCG/INH AEPB 1 puff bid with ri nse after MOMETASONE FUROATE 77976180387 No Longer Active Diya Saeed ell ROLLER SKATER Active ZITHROMAX Z-REYNA 250 MG TABS 2 today, then 1 daily for 4 days 201 09/29/14 AZITHROMYCIN 31729601497 No Longer Active Elise Whitmore APRN Active TUSSIONEX PENNKINETIC ER 10-8 MG/5ML LQCR 5ml po q12hr PRN Cough HYDROCOD POLST-CHLORPHEN POLST 14155287349 No Longer Active Elise Whitmore APRN Active MUCINEX D 60-600 MG [id number] 1 tab po q am PSEUDOEPHEDRINE-GUAIFENESIN 81199072746 Active Jillina Frazell ROLLER SKATER Active PREDNISONE 20 MG TAB 2 tabs daily for 3 days, 1 t ab daily for 3 days, 1/2 tab daily for 2 days PREDNISONE 62633107340 No Longer Active Jillina Frazell ROLLER SKATER Active AMOXICILLIN 500 MG CAPS 2 po BID x 10 days AMOX ICILLIN 88374548931 No Longer Active Jillina Frazell ROLLER SKATER Active SINGULAIR 10 MG TABS 1 po qday for allergies 2 MONTELUKAST SODIUM 20223926664 No Longer Active Carlton Hu MD Acti ve LEVAQUIN 500 MG TAB 1 tablet by mouth daily LEV OFLOXACIN 28871668829 No Longer Active Carlton Hu MD Active FLUTICASONE PROPIONATE 50 MCG/ACT SUSP 2 sprays each n ostril daily for 2 weeks, then 1 spray each nostril daily. FLUTICASONE PRO PIONATE 05656196955 Active Elise Whitmore APRN Active ZITHROMAX 250 MG TAB 2 po today, then 1 po q days 2-5 AZITHROMYCIN 52754287839 No Longer Active Elise Whitmore APRN Acti ve XANAX 0.5 MG TABS one tablet by mouth daily prn anxiety ALPRAZOLAM 11680724624 Active Elise Whitmore APRN Active CYMBALTA 30 MG CPEP 1 cap by mouth daily for depression DULOXETINE HCL 98844850683 Active Carlton Hu MD Active CEFDINIR 300 MG CAPS 1 po BID x 10 days CEFDINI R 84597220377 No Longer Active Carlton Hu MD Active ZOCOR 40 MG TAB 1 tab by mouth daily SIMVASTATI N 01180979681 No Longer Active Carlton Hu MD Active CYCLOBENZAPRINE HCL 10 MG TABS 1 tablet by mouth BID prn had cherelle n CYCLOBENZAPRINE HCL 94049584694 No Longer Active Carlton Hu MD Active LEVOFLOXACIN 500 MG ORAL TABS 1 tab PO daily x 10 days LEVOFLOXACIN 13921102346 No Longer Active Carlton Hu MD Acti ve PREDNISONE 20 MG ORAL TABS 3 tab PO qd x 2d, 2 tab PO qd x 2d, 1 tab PO qd x 2d, 1/2 tab PO qd x 2d PREDNISONE 25821102594 No Longer Active Carlton Hu MD Active FLUTICASONE PROPIONATE 50 MCG/ACT SUSP 1 to 2 sprays each no stril daily FLUTICASONE PROPIONATE 82548235090 No Longer Active T jaz HERNANDEZ Active CHERATUSSIN AC 100-10 MG/5ML SYRP 1 tsp by mouth every 4 hours as needed for cough GUAIFENESIN-CODEINE 66585481748 No Longer Activ e Blaine HERNANDEZ Active PROMETHAZINE-CODEINE 6.25-10 MG/5ML SYRP 1 tsp by mout h every 6 hours if needed for cough PROMETHAZINE-CODEINE 56723633809 No Long er Active Blaine HERNANDEZ Active CHERATUSSIN AC 100-10 MG/5ML SYRP 1 tsp by mouth every 4 hours as needed for cough GUAIFENESIN-CODEINE 15652094182 No Longer Activ e Blaine HERNANDEZ Active ZITHROMAX Z-REYNA 250 MG TABS 2 today, then 1 daily for 4 days 201 08/30/03 AZITHROMYCIN 47156205784 No Longer Active Columba Raida Act nael ZITHROMAX 250 MG TAB 2 po today, then 1 po q days 2-5 AZITHROMYCIN 18660922134 No Longer Active Carlton Hu MD Acti ve ZITHROMAX Z-REYNA 250 MG TABS 2 today, then 1 daily for 4 days 201 08/07/20 AZITHROMYCIN 53724820086 No Longer Active Columba Raida Act nael AUGMENTIN 875-125 MG TAB 1 po BID x 10 days AMOXICILLIN- POT CLAVULANATE 50207476355 No Longer Active Diya Sernabrayan RICEN Active ZITHROMAX 250 MG TAB 2 po today, then 1 po q days 2-5 AZITHROMYCIN 45219763635 No Longer Active Carlton Hu MD Acti ve TRAMADOL HCL 50 MG TABS 1 po tid with ES Tylenol TRAMADOL HCL 36388101677 Active Carlton Hu MD Active PREMARIN 0.625 MG TABS TAKE 1 TAB BY MOUTH DAILY 07/25 ESTROGENS CONJUGATED 48669492364 No Longer Active Ridge eBss DO Active CYMBALTA 30 MG CPEP 1 cap by mouth daily DULOXE SNEHA HCL 69742826043 No Longer Active Ridge Bess DO Active AMOXICILLIN 500 MG CAP 1 tab by mouth 3 times daily x 10 days 20 14/04/28 AMOXICILLIN 77946595911 No Longer Active Carlton Hu MD Active AMOXICILLIN 500 MG CAP 1 tab by mouth 3 times daily x 10 days 20 13/03/08 AMOXICILLIN 72428988191 No Longer Active Carlton Hu MD Active PROMETHAZINE-CODEINE 6.25-10 MG/5ML SYRP 1 tsp by mouth ever y 8 hours prn cough PROMETHAZINE-CODEINE 44988172307 No Longer Active Robert Hu MD Active MEDROL (REYNA) 4 MG TABS 6 pills x 1 day, then 5 pill s x 1 day then 4 pills x 1 day, then 3 pills x 1 day, then 2 pills x 1 day, then 1 pill x 1 day, then stop METHYLPREDNISOLONE 79935312579 No Longer Active Parris Mora MD Active AZITHROMYCIN 250 MG TABS 2 po qd x 1 day, then 1 po qd x 4 days AZITHROMYCIN 54420286369 No Longer Active Perez Mora MD Active SYMBICORT 160-4.5 MCG/ACT AERO 2 puffs bid with rinse after 2011 BUDESONIDE-FORMOTEROL FUMARATE 70762479778 No Longer Active Perez Mora MD Active LYRICA 75 MG CAPS TAKE 1 CAPSULE BY MOUTH TWICE DAILY 2013 PREGABALIN 23256771412 No Longer Active Carlton Hu MD Active TOPAMAX 25 MG TABS 1 qHS x 1 week, then 1 BID x 1 week, then 1 qAM and 2 qHS x 1 week, then 2 BID (migraine prevention) TOPIRAMAT E 78933524271 No Longer Active Jerica FUENTES Active TOPAMAX 50 MG TABS take 1 tab po BID for migraines. 12/07/10 TOPIRAMATE 09027810376 No Longer Active Jerica Osei RMA Ac tive TOPAMAX 100 MG TABS Take 1 tablet po bid TOPIRAMATE 4999 8883916 Active Elise Whitmore APRN Active TRIAMCINOLONE ACETONIDE 0.1 % CREA apply three times daily prn r beatrice TRIAMCINOLONE ACETONIDE 78653173275 No Longer Active Carlton Hu MD Active PAXIL 40 MG TAB take 1 tab po qday for depression PAROXETINE HCL 56395415916 Active Elise Whitmore APRN Active CHERATUSSIN AC 100-10 MG/5ML SYRP 5ml po q6hr PRN Cough GUAIFENESIN-CODEINE 09360492753 No Longer Active Carlton Hu MD Active MEDROL (REYNA) 4 MG TABS 6 tabs on day 1, 5 tabs on d ay 2, 4 tabs on day 3, 3 tabs on day 4, 2 tabs on day 5, 1 tab on day 6 METHYLPREDNISOLONE 94277795960 No Longer Active Perez Mora MD Active AZITHROMYCIN 250 MG TABS 2 po qd x 1 day, then 1 po qd x 4 days AZITHROMYCIN 81032337882 No Longer Active Perez Mora MD Active PROPRANOLOL HCL 60 MG TABS 1 PO Q D PROPRANOL OL HCL 34459693474 No Longer Active Perez Mora MD Active CHERATUSSIN AC 100-10 MG/5ML SYRP take one tsp po Q 6hours prn c ough GUAIFENESIN-CODEINE 85975489478 No Longer Active Perez Means Active AUGMENTIN 875-125 MG TAB 1 tab by mouth twice daily with food 20 12/03/31 AMOXICILLIN-POT CLAVULANATE 21710911141 No Longer Active Chanel Mora MD Active CHERATUSSIN AC 100-10 MG/5ML SYRP 1 tsp by mouth every 4 hours as needed for cough GUAIFENESIN-CODEINE 64965207765 No Longer Activ e Hugo Restrepo MD Active ACETAMINOPHEN-CODEINE #3 300-30 MG TABS 1 PO Q 4-6 HRS PRN PAIN ACETAMINOPHEN-CODEINE 16823925867 No Longer Active Hugo Restrepo MD Active LEVAQUIN 500 MG TABS take one po QD LEVOFLOXACI N 35637988710 No Longer Active Griffin HERNANDEZ Active PREDNISONE 20 MG TAB Take 3 tabs daily for 3 days , 2 tabs daily for 3 days, 1 tab daily for 3 days, 1/2 tab daily for 3 days P REDNISONE 11407861171 No Longer Active Carlton Hu MD Active AVELOX 400 MG TABS 1 tab by mouth daily MOXIFLO XACIN HCL 37530222117 No Longer Active Carlton Hu MD Active CHERATUSSIN AC 100-10 MG/5ML SYRP 1 tsp by mouth every 4 hours as needed for cough GUAIFENESIN-CODEINE 46550026474 No Longer Activ e Hugo Restrepo MD Active AVELOX 400 MG TABS 1 tab by mouth daily MOXIFLO XACIN HCL 73040496738 No Longer Active Marcy De La Rosa MD PhD Active TERBINAFINE HCL 250 MG TABS 1 qDay TERBINAF INE HCL 85471969281 No Longer Active Marcy De La Rosa MD PhD Active CHERATUSSIN AC 100-10 MG/5ML SYRP 1 tsp by mouth every 4 hours as needed for cough GUAIFENESIN-CODEINE 30216059133 No Longer Activ e Marcy De La Rosa MD PhD Active AVELOX 400 MG TABS 1 tab by mouth daily MOXIFLO XACIN HCL 31309797539 No Longer Active Marcy De La Rosa MD PhD Active HYDROCODONE-ACETAMINOPHEN 5-325 MG TABS 1 po q 6hr PRN cough 201 05/09/16 HYDROCODONE-ACETAMINOPHEN 23168009313 No Longer Active Marcy De La Rosa MD PhD Active PREDNISONE 20 MG TAB 2 tabs daily for 3 days, 1 t ab daily for 3 days, 1/2 tab daily for 2 days PREDNISONE 96011445852 No Longer Active Carlton Hu MD Active CEFDINIR 300 MG CAPS by mouth twice a day CEFDI DOILIA 54175737902 No Longer Active Carlton Hu MD Active HYDROCHLOROTHIAZIDE 25 MG TABS 1 TAB PO DAILY H YDROCHLOROTHIAZIDE 73805077317 Active Carlton Hu MD Active ACETAMINOPHEN-CODEINE #3 300-30 MG TABS 1 tablet po q 4-6hrs prn pain ACETAMINOPHEN-CODEINE 17417290447 No Longer Active Ridge Bess DO Active ZITHROMAX 250 MG TAB 2 po today, then 1 po q days 2-5 AZITHROMYCIN 19022184877 No Longer Active Carlton Hu MD Acti ve CHERATUSSIN AC 100-10 MG/5ML SYRP take 1 tsp po q4-6 hours prn c ough GUAIFENESIN-CODEINE 40045281913 No Longer Active Carlton Hu MD Active ACETAMINOPHEN-CODEINE #3 300-30 MG TABS 1 PO Q 4-6 HR PRN PAIN 2 ACETAMINOPHEN-CODEINE 59040023583 No Longer Active Carlton rich MD Active LORTAB 7.5-500 MG/15ML ELIX 7.5 ml po q 4 hour prn cough HYDROCODONE-ACETAMINOPHEN 64306189767 No Longer Active Carlton Hu MD Active PREDNISONE 20 MG TAB 1 po bid 3 days, then 1 po q day 3 days 201 05/03/07 PREDNISONE 77211640617 No Longer Active Carlton Hu MD Active ELMIRON 100 MG CAPS 2 tablets in the am and 1 tablet at hs PENTOSAN POLYSULFATE SODIUM 46705552719 Active Carlton Hu MD Ac tive CEFDINIR 300 MG CAPS by mouth twice a day CEFDI ODILIA 63642275574 No Longer Active Carlton Hu MD Active CEFDINIR 300 MG CAPS by mouth twice a day CEFDI ODILIA 01860238895 No Longer Active Carlton Hu MD Active CEFDINIR 300 MG CAPS by mouth twice a day CEFDI ODILIA 66086598327 No Longer Active Carlton Hu MD Active TESSALON PERLES 100 MG CAP 1 tablet by mouth 3 times daily a s needed for cough BENZONATATE 27153603649 No Longer Active Carlton bustamante MD Active CEFDINIR 300 MG CAPS by mouth twice a day CEFDI ODILIA 53878897200 No Longer Active Carlton Hu MD Active ZITHROMAX Z-REYNA 250 MG TABS 2 today, then 1 daily for 4 days 201 04/09/17 AZITHROMYCIN 20387564300 No Longer Active Hugo Restrepo MD Active TESSALON PERLES 100 MG CAP 1 tablet by mouth 3 times daily a s needed for cough TESSALON PERLES 100 MG CAP 725686 BENZONATATE I nactive PREDNISONE 20 MG TAB 1 po bid 3 days, then 1 po q day 3 days 201 05/03/07 PREDNISONE 20 MG TAB 346621 PREDNISONE Inactive LORTAB 7.5-500 MG/15ML ELIX 7.5 ml po q 4 hour prn cough LORTAB 7.5-500 MG/15ML ELIX HYDROCODONE-ACETAMINOPHEN Inacti ve ACETAMINOPHEN-CODEINE #3 300-30 MG TABS 1 PO Q 4-6 HR PRN PAIN 2 ACETAMINOPHEN-CODEINE #3 300-30 MG TABS ACETAMIN OPHEN-CODEINE Inactive CHERATUSSIN AC 100-10 MG/5ML SYRP take 1 tsp po q4-6 hours prn c ough CHERATUSSIN AC 100-10 MG/5ML SYRP 585662 GUAIFENESIN-CO DEINE Inactive ACETAMINOPHEN-CODEINE #3 300-30 MG TABS 1 tablet po q 4-6hrs prn pain ACETAMINOPHEN-CODEINE #3 300-30 MG TABS ACETAMIN OPHEN-CODEINE Inactive HYDROCODONE-ACETAMINOPHEN 5-325 MG TABS 1 po q 6hr PRN cough 201 05/09/16 HYDROCODONE-ACETAMINOPHEN 5-325 MG TABS 755350 HYDROCODONE-ACETAMINOPHEN Inactive AVELOX 400 MG TABS 1 tab by mouth daily A VELOX 400 MG TABS 826123 MOXIFLOXACIN HCL Inactive CHERATUSSIN AC 100-10 MG/5ML SYRP 1 tsp by mouth every 4 hours as needed for cough CHERATUSSIN AC 100-10 MG/5ML SYRP 698244 GUAIFENESIN-CODEINE Inactive TERBINAFINE HCL 250 MG TABS 1 qDay TERBINAFINE HCL 250 MG TABS 490850 TERBINAFINE HCL Inactive CHERATUSSIN AC 100-10 MG/5ML SYRP 1 tsp by mouth every 4 hours as needed for cough CHERATUSSIN AC 100-10 MG/5ML SYRP 496677 GUAIFENESIN-CODEINE Inactive ACETAMINOPHEN-CODEINE #3 300-30 MG TABS 1 PO Q 4-6 HRS PRN PAIN ACETAMINOPHEN-CODEINE #3 300-30 MG TABS ACETAMINOPHEN-CODEIN E Inactive CHERATUSSIN AC 100-10 MG/5ML SYRP 1 tsp by mouth every 4 hours as needed for cough CHERATUSSIN AC 100-10 MG/5ML SYRP 067349 GUAIFENESIN-CODEINE Inactive AUGMENTIN 875-125 MG TAB 1 tab by mouth twice daily with food 20 12/03/31 AUGMENTIN 875-125 MG TAB 685423 AMOXICILLIN-POT CLAVULA EFE Inactive CHERATUSSIN AC 100-10 MG/5ML SYRP take one tsp po Q 6hours prn c ough CHERATUSSIN AC 100-10 MG/5ML SYRP 767130 GUAIFENESIN-CO DEINE Inactive PROPRANOLOL HCL 60 MG TABS 1 PO Q D P ROPRANOLOL HCL 60 MG TABS 372287 PROPRANOLOL HCL Inactive TOPAMAX 50 MG TABS take 1 tab po BID for migraines. 12/07/10 TOPAMAX 50 MG TABS 732448 TOPIRAMATE Inactive TOPAMAX 25 MG TABS 1 qHS x 1 week, then 1 BID x 1 week, then 1 qAM and 2 qHS x 1 week, then 2 BID (migraine prevention) TOPAMAX 2 5 MG TABS 773800 TOPIRAMATE Inactive LYRICA 75 MG CAPS TAKE 1 CAPSULE BY MOUTH TWICE DAILY LYRICA 75 MG CAPS PREGABALIN Inactive SYMBICORT 160-4.5 MCG/ACT AERO 2 puffs bid with rinse after 2011 SYMBICORT 160-4.5 MCG/ACT AERO BUDESONIDE-FORMOT SÁNCHEZ FUMARATE Inactive PROMETHAZINE-CODEINE 6.25-10 MG/5ML SYRP 1 tsp by mouth ever y 8 hours prn cough PROMETHAZINE-CODEINE 6.25-10 MG/5ML SYRP 751520 PROMETHAZINE-CODEINE Inactive CYMBALTA 30 MG CPEP 1 cap by mouth daily CYMBALTA 30 MG CPEP 021627 DULOXETINE HCL Inactive PREMARIN 0.625 MG TABS TAKE 1 TAB BY MOUTH DAILY 07/25 PREMARIN 0.625 MG TABS ESTROGENS CONJUGATED Inactive CHERATUSSIN AC 100-10 MG/5ML SYRP 1 tsp by mouth every 4 hours as needed for cough CHERATUSSIN AC 100-10 MG/5ML SYRP 325117 GUAIFENESIN-CODEINE Inactive PROMETHAZINE-CODEINE 6.25-10 MG/5ML SYRP 1 tsp by mout h every 6 hours if needed for cough PROMETHAZINE-CODEINE 6.25-10 MG/5ML SYRP 633167 PROMETHAZINE-CODEINE Inactive CHERATUSSIN AC 100-10 MG/5ML SYRP 1 tsp by mouth every 4 hours as needed for cough CHERATUSSIN AC 100-10 MG/5ML SYRP 301798 GUAIFENESIN-CODEINE Inactive FLUTICASONE PROPIONATE 50 MCG/ACT SUSP 1 to 2 sprays each no stril daily FLUTICASONE PROPIONATE 50 MCG/ACT SUSP 3952785 FLUTICASONE PROPIONATE Inactive PREDNISONE 20 MG ORAL TABS 3 tab PO qd x 2d, 2 tab PO qd x 2d, 1 tab PO qd x 2d, 1/2 tab PO qd x 2d PREDNISONE 20 MG ORAL TABS 791162 PREDNISONE Inactive LEVOFLOXACIN 500 MG ORAL TABS 1 tab PO daily x 10 days LEVOFLOXACIN 500 MG ORAL TABS 477578 LEVOFLOXACIN Inactive CYCLOBENZAPRINE HCL 10 MG TABS 1 tablet by mouth BID prn had cherelle n CYCLOBENZAPRINE HCL 10 MG TABS 127699 CYCLOBENZAPRINE H CL Inactive ZOCOR 40 MG TAB 1 tab by mouth daily ZOCOR 40 M G TAB 656657 SIMVASTATIN Inactive TUSSIONEX PENNKINETIC ER 10-8 MG/5ML [...] empty FLUTICASONE PROPIONATE 50 MCG/ACT SUSP 17 50082 FLUTICASONE PROPIONATE Inactive TUSSIONEX PENNKINETIC ER 10-8 [...] 201 04/09/17 ZITHROMAX Z-REYNA 250 MG TABS 7272596 AZITHROMYCIN Inac tive CEFDINIR 300 MG CAPS by mouth twice a day CEFDINIR 300 MG CAPS 20020704 CEFDINIR Inactive CEFDINIR 300 MG CAPS by mouth twice a day CEFDINIR 300 MG CAPS 20020704 CEFDINIR Inactive CEFDINIR 300 MG CAPS by mouth twice a day CEFDINIR 300 MG CAPS 928733 CEFDINIR Inactive CEFDINIR 300 MG CAPS by mouth twice a day CEFDINIR 300 MG CAPS 20020704 CEFDINIR Inactive ZITHROMAX 250 MG TAB 2 po today, then 1 po q days 2-5 ZITHROMAX 250 MG TAB 6084532 AZITHROMYCIN Inactive CEFDINIR 300 MG CAPS by mouth twice a day CEFDINIR 300 MG CAPS 822904 CEFDINIR Inactive PREDNISONE 20 MG TAB 2 tabs daily for 3 days, 1 t ab daily for 3 days, 1/2 tab daily for 2 days PREDNISONE 20 MG TAB 222222 PREDNISON E Inactive AVELOX 400 MG TABS 1 tab by mouth daily A VELOX 400 MG TABS 361592 MOXIFLOXACIN HCL Inactive AVELOX 400 MG TABS 1 tab by mouth daily A VELOX 400 MG TABS 150050 MOXIFLOXACIN HCL Inactive PREDNISONE 20 MG TAB Take 3 tabs daily for 3 days , 2 tabs daily for 3 days, 1 tab daily for 3 days, 1/2 tab daily for 3 days PREDNISONE 20 MG TAB 645898 PREDNISONE Inactive LEVAQUIN 500 MG TABS take one po QD LEVAQUIN 50 0 MG TABS 925408 LEVOFLOXACIN Inactive AZITHROMYCIN 250 MG TABS 2 po qd x 1 day, then 1 po qd x 4 days AZITHROMYCIN 250 MG TABS 5192405 AZITHROMYCIN Inactiv e MEDROL (REYNA) 4 MG TABS 6 tabs on day 1, 5 tabs on d ay 2, 4 tabs on day 3, 3 tabs on day 4, 2 tabs on day 5, 1 tab on day 6 MEDROL (REYNA) 4 MG TABS 781000 METHYLPREDNISOLONE Inactive CHERATUSSIN AC 100-10 MG/5ML SYRP 5ml po q6hr PRN Cough CHERATUSSIN AC 100-10 MG/5ML SYRP 037367 GUAIFENESIN-CODEINE Inacti ve TRIAMCINOLONE ACETONIDE 0.1 % CREA apply three times daily prn r beatrice TRIAMCINOLONE ACETONIDE 0.1 % CREA 2930133 TRIAMCINOLONE ACETONIDE Inactive AZITHROMYCIN 250 MG TABS 2 po qd x 1 day, then 1 po qd x 4 days AZITHROMYCIN 250 MG TABS 3427630 AZITHROMYCIN Inactiv e MEDROL (REYNA) 4 MG TABS 6 pills x 1 day, then 5 pill s x 1 day then 4 pills x 1 day, then 3 pills x 1 day, then 2 pills x 1 day, then 1 pill x 1 day, then stop MEDROL (REYNA) 4 MG TABS 478620 METHYLPREDNISOLONE Inactive AMOXICILLIN 500 MG CAP 1 tab by mouth 3 times daily x 10 days 20 13/03/08 AMOXICILLIN 500 MG CAP 603208 AMOXICILLIN Inactive AMOXICILLIN 500 MG CAP 1 tab by mouth 3 times daily x 10 days 20 14/04/28 AMOXICILLIN 500 MG CAP 389894 AMOXICILLIN Inactive ZITHROMAX 250 MG TAB 2 po today, then 1 po q days 2-5 ZITHROMAX 250 MG TAB 2510897 AZITHROMYCIN Inactive AUGMENTIN 875-125 MG TAB 1 po BID x 10 days AUGMENTIN 875- 125 MG TAB 145729 AMOXICILLIN-POT CLAVULANATE Inactive ZITHROMAX Z-REYNA 250 MG TABS 2 today, then 1 daily for 4 days 201 08/07/20 ZITHROMAX Z-REYNA 250 MG TABS 5318447 AZITHROMYCIN Inac tive ZITHROMAX 250 MG TAB 2 po today, then 1 po q days 2-5 ZITHROMAX 250 MG TAB 0555004 AZITHROMYCIN Inactive ZITHROMAX Z-REYNA 250 MG TABS 2 today, then 1 daily for 4 days 201 08/30/03 ZITHROMAX Z-REYNA 250 MG TABS 0566423 AZITHROMYCIN Inac tive CEFDINIR 300 MG CAPS 1 po BID x 10 days C EFDINIR 300 MG CAPS 802025 CEFDINIR Inactive ZITHROMAX 250 MG TAB 2 po today, then 1 po q days 2-5 ZITHROMAX 250 MG TAB 2925507 AZITHROMYCIN Inactive LEVAQUIN 500 MG TAB 1 tablet by mouth daily LEVAQUIN 500 MG TAB 690373 LEVOFLOXACIN Inactive SINGULAIR 10 MG TABS 1 po qday for allergies 2 SINGULAIR 10 MG TABS 20010504 MONTELUKAST SODIUM Inactive AMOXICILLIN 500 MG CAPS 2 po BID x 10 days AMOXICILLIN 500 MG CAPS 108643 AMOXICILLIN Inactive PREDNISONE 20 MG TAB 2 tabs daily for 3 days, 1 t ab daily for 3 days, 1/2 tab daily for 2 days PREDNISONE 20 MG TAB 426835 PREDNISON E Inactive ZITHROMAX Z-REYNA 250 MG TABS 2 today, then 1 daily for 4 days 201 09/29/14 ZITHROMAX Z-REYNA 250 MG TABS 8700478 AZITHROMYCIN Inac tive PREDNISONE 20 MG TAB 2 tabs daily for 3 days, 1 t ab daily for 3 days, 1/2 tab daily for 2 days PREDNISONE 20 MG TAB 584177 PREDNISON E Inactive Vital Signs Date Name [...] Negative Encounters Code Encounter Date Provider Facility CPT-98318 Level 3 Est. Patient 12:17:50 CDT Hugo Restrepo MD [facility] CPT-51298 Level 3 Est. Patient 13:42:38 CDT [facility] CPT-58082 Level 3 Est. Patient 13:23:51 CDT Diya cobian [facility] CPT-89249 Level 3 Est. Patient 14:22:19 [employer] Diay cobian [facility] CPT-96803 Level 3 Est. Patient 10:11:46 CDT Carlton rich MD [facility] CPT-38109 Level 3 Est. Patient 17:29:43 CDT Italo [facility]-52633 Level 3 Est. Patient 11:58:06 CDT [facility] CPT-59315 Level 4 Est. Patient 14:36:51 CDT Carlton rich MD [facility]-20305 Level 3 Est. Patient 18:16:00 [employer] Blaine Freeman [facility] CPT-76629 Level 3 Est. Patient 09:45:49 [employer] Carlton rich MD [facility]-63803 Level 3 Est. Patient 13:19:20 CDT Carlton rich MD [facility]-12785 Level 3 Est. Patient 13:06:43 CDT Ridge tam DO [facility] CPT-48011 Level 3 Est. Patient 10:03:07 CDT Perez Mora MD [facility]-40080 Level 3 Est. Patient 19:50:35 [employer] Carlton rich MD [facility] CPT-72589 Level 4 Est. Patient 18:05:01 [employer] Carlton rich MD [facility] CPT-93934 Level 3 Est. Patient 10:45:55 [employer] Hugo Restrepo MD [facility] CPT-68095 Level 3 Est. Patient 14:12:49 CDT Griffin lincoln [facility]-10482 Level 3 Est. Patient 17:37:24 CDT Carlton rich MD [facility]-56190 Level 3 Est. Patient 16:51:54 CDT Carlton rich MD [facility]-46993 Level 3 Est. Patient 12:18:11 CDT Hugo Restrepo MD [facility]-92216 Level 3 Est. Patient 11:30:25 CDT Marcy crisostomo MD PhD [facility] CPT-85730 Level 3 Est. Patient 12:00:47 [employer] Carlton rich MD [facility] CPT-39574 Level 3 Est. Patient 16:31:06 [employer] Carlton rich MD [facility] CPT-68841 Level 3 Est. Patient 16:23:24 C[employer] Ridge tam [facility] CPT-77326 Level 3 Est. Patient 12:34:12 CDT Carlton rich MD [facility] CPT-25304 Level 2 Est. Patient 15:43:33 CDT Robi armstrong MD [facility] CPT-17706 Level 4 Est. Patient 14:04:44 CDT Carlton rich MD [facility] CPT-69288 Level 3 Est. Patient 05:47:59 CDT Ridge tam [facility] CPT-89972 Level 3 Est. Patient 13:12:53 [employer] Carlton rich MD [facility] CPT-55206 Level 3 Est. Patient 14:26:53 CDT Hugo Restrepo MD [facility] Procedures Code Procedure Name Date Entry Date Standard Desc ription CPT-J0696 Rocephin 1gm Inj Solr 14:32:13 CDT CPT-J1020 Depo Medrol 60 mg (Methyl Prednisolone A cetate) 14:32:13 CDT CPT-J1100 Decadron 6mg (Dexamethasone) 14:32:13 CDT 2 CPT-17167 Hip bilat min 2V w AP pelvis 13:16:20 CDT 2 CPT-73141 Pelvis only 13:07:33 CDT CPT-97102 Spec Collection and Handling Fee 11:25:12 C DT CPT-38956 Fluzone Quadrivalent Intramuscular Suspe nsion 0.5 ML 14:31:55 CDT CPT-42240 Abx/Therapy Injection 13:28:47 [employer] [employer] CPT-J2930 Solu Medrol 125 mg (Methyl Prednisolone Sodium Succinate) 12:00:47 [employer] CPT-58415 Venipuncture Draw Fee 11:33:31 CDT CPT-44520 EKG Trac and Interp 11:21:09 CDT CPT-27486 Chest 2V Frontal and Lat 11:21:09 CDT 12/15 CPT-27005 Venipuncture Draw Fee 08:02:34 CDT CPT-20801 Chest 2V Frontal and Lat 05:47:59 CDT 06/05
--- OUTSIDE RECORDS SUMMARY | 2019-10-08 10:09 | XMS REPORT | Clinical Summary ---
Author Author Caitlin, Juliana Martinez Organization [facility] Address Unknown Phone Unavailable Allergies, Adverse [...] x 10 days 20 16/03/22 AMOXICILLIN-POT CLAVULANATE [id number] Active Elise Whitmore APRN Active TERBINAFINE HCL 250 MG ORAL TABLET 1 qDay for nail fungus 7 TERBINAFINE HCL 53422161289 No Longer Active Carlton Hu MD A ctive TUSSIONEX PENNKINETIC ER 10-8 MG/5ML ORAL SUSPENSION E XTENDED RELEASE 5ml po q12hr PRN Cough HYDROCOD POLST-CHLORPHEN POLST 84015306312 Active Carlton Hu MD Active PREDNISONE 20 MG ORAL TABLET 1 tab twice daily for 3 d ay, then one daily for three days PREDNISONE 50265152674 Active Carlton Hu MD Active AMOXICILLIN 500 MG ORAL CAPSULE 1 cap by mouth three times a day AMOXICILLIN 39132375485 No Longer Active Carlton Hu MD Active ELMIRON 100 MG ORAL CAPSULE 2 tablets in the am and 1 tablet at hs PENTOSAN POLYSULFATE SODIUM 38274839318 No Longer Active Robert Hu MD Active MUCINEX D 60-600 MG ORAL TABLET EXTENDED RELEASE 12 HOUR 1 t ab po q am PSEUDOEPHEDRINE-GUAIFENESIN 63892453968 No Longer Act nael Carlton Hu MD Active MUCINEX DM MAXIMUM STRENGTH 60-1200 MG ORAL TABLET EXT ENDED RELEASE 12 HOUR 1 tab po q am DEXTROMETHORPHAN-GUAIFENESIN 44816502458 No Longer Active Carlton Hu MD Active TUSSIONEX PENNKINETIC ER 10-8 MG/5ML ORAL SUSPENSION E XTENDED RELEASE 5ml po q12hr PRN Cough HYDROCOD POLST-CHLORPHEN POLST 5 9912666549 No Longer Active Carlton Hu MD Active POTASSIUM CHLORIDE ER 20 MEQ ORAL TABLET EXTENDED RELE ASE Take 1 by mouth 4 times daily for 7 days POTASSIUM CHLORIDE 75353495560 No Longer Active Carlton Hu MD Active ZITHROMAX 250 MG ORAL TABLET 2 po today, then 1 po q days 2-5 20 14/09/04 AZITHROMYCIN 09284169032 No Longer Active Elise Whitmore APRN Active TUSSIONEX PENNKINETIC ER 10-8 MG/5ML ORAL SUSPENSION E XTENDED RELEASE 5 ml twice a day as needed for cough HYDROCOD POLST-CHLORPH EN POLST 91473964961 No Longer Active Elise Whitmore APRN Active MONTELUKAST SODIUM 10 MG ORAL TABLET 1 po daily for Allergy MONTELUKAST SODIUM 13285441864 Active Carlton Hu MD Ac tive TUSSIONEX PENNKINETIC ER 10-8 MG/5ML ORAL SUSPENSION E XTENDED RELEASE 5ml po q12hr PRN Cough HYDROCOD POLST-CHLORPHEN POLST 5 5669073586 No Longer Active Hugo Restrepo MD Active GABAPENTIN 100 MG ORAL CAPSULE 1 po BID for fibromyalgia GABAPENTIN 37499965218 Active Carlton Hu MD Active LYRICA 100 MG ORAL CAPSULE Take 1 tab po BID for fibromyalgia 20 11/08/21 PREGABALIN 61611803389 No Longer Active Elise Whitmore APRN Active PROAIR HFA 108 (90 Base) MCG/ACT INHALATION AEROSOL SO LUTION 2 puffs four times a day as needed ALBUTEROL SULFATE 77090622035 Active Lyndsay Whitmore APRN Active PREDNISONE 20 MG ORAL TABLET 2 tabs daily for 3 days, 1 tab daily for 3 days, 1/2 tab daily for 2 days PREDNISONE 22067204511 No Longer Active Venullina Gege RICEN Active TUSSIONEX PENNKINETIC ER 10-8 MG/5ML ORAL SUSPENSION E XTENDED RELEASE 5 mL PO q 12 hrs PRN cough HYDROCOD POLST-CHLORPHEN POLST 712558 02596 No Longer Active Jillina Frazell SHEETER 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 FLUTICASONE PROPIONATE 50 MCG/ACT NASAL SUSPENSION 2 s prays each nostril daily until bottle is empty FLUTICASONE PROPIONATE 260055491 99 No Longer Active Jillina Frazell SHEETER 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 ASMANEX 60 METERED DOSES 220 MCG/INH INHALATION AEROSO L POWDER BREATH ACTIVATED 1 puff bid with rinse after MOMETASONE FUROATE 7988651 4102 No Longer Active Jillina Frazell SHEETER 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 ZITHROMAX Z-REYNA 250 MG ORAL TABLET 2 today, then 1 daily for 4 d ays AZITHROMYCIN 14262322065 No Longer Active Elise Whitmore APRN Active TUSSIONEX PENNKINETIC ER 10-8 MG/5ML ORAL SUSPENSION E XTENDED RELEASE 5ml po q12hr PRN Cough HYDROCOD POLST-CHLORPHEN POLST 5 3628435237 No Longer Active Elise Whitmore APRN Active PREDNISONE 20 MG ORAL TABLET 2 tabs daily for 3 days, 1 tab daily for 3 days, 1/2 tab daily for 2 days PREDNISONE 53353590130 No Longer Active Diya De Guzman APRN Active AMOXICILLIN 500 MG ORAL CAPSULE 2 po BID x 10 days 201 09/29/08 AMOXICILLIN 55139858838 No Longer Active Jillina Gege RICEN Act nael SINGULAIR 10 MG ORAL TABLET 1 po qday for allergies 20 14/01/12 MONTELUKAST SODIUM 75108761020 No Longer Active Carlton Hu MD Active LEVAQUIN 500 MG ORAL TABLET 1 tablet by mouth daily 20 13/09/24 LEVOFLOXACIN 18090458673 No Longer Active Carlton Hu MD Acti ve FLUTICASONE PROPIONATE 50 MCG/ACT NASAL SUSPENSION 2 s prays each nostril daily for 2 weeks, then 1 spray each nostril daily. FLUTICASONE PROPIONATE 04571182887 Active Elise Whitmore APRN Active ZITHROMAX 250 MG ORAL TABLET 2 po today, then 1 po q days 2-5 20 13/08/10 AZITHROMYCIN 57709973035 No Longer Active Elise Whitmore APRN Active XANAX 0.5 MG ORAL TABLET one tablet by mouth daily prn anxiety 2015 ALPRAZOLAM 28349960334 Active Carlton Hu MD Active CYMBALTA 30 MG ORAL CAPSULE DELAYED RELEASE PARTICLES 1 cap by mouth daily for depression DULOXETINE HCL 95001777366 Active Carlton beltrán MD Active CEFDINIR 300 MG ORAL CAPSULE 1 po BID x 10 days CEFDINIR 97722099900 No Longer Active Carlton Hu MD Active ZOCOR 40 MG ORAL TABLET 1 tab by mouth daily SI MVASTATIN 76754761159 No Longer Active Carlton Hu MD Active CYCLOBENZAPRINE HCL 10 MG ORAL TABLET 1 tablet by mouth BID prn had pain CYCLOBENZAPRINE HCL 67197500490 No Longer Active Jayden Hu MD Active LEVOFLOXACIN 500 MG ORAL TABLET 1 tab PO daily x 10 days LEVOFLOXACIN 47618466629 No Longer Active Carlton Hu MD Acti ve PREDNISONE 20 MG ORAL TABLET 3 tab PO qd x 2d, 2 tab P O qd x 2d, 1 tab PO qd x 2d, 1/2 tab PO qd x 2d PREDNISONE 31869283722 No Lo nger Active Carlton Hu MD Active FLUTICASONE PROPIONATE 50 MCG/ACT NASAL SUSPENSION 1 t o 2 sprays each nostril daily FLUTICASONE PROPIONATE 54419825838 No Longer Ac tive Blaine HERNANDEZ Active CHERATUSSIN AC 100-10 MG/5ML ORAL SYRUP 1 tsp by mouth every 4 hours as needed for cough GUAIFENESIN-CODEINE 78029423402 No Longe r Active Blaine HERNANDEZ Active PROMETHAZINE-CODEINE 6.25-10 MG/5ML ORAL SYRUP 1 tsp b y mouth every 6 hours if needed for cough PROMETHAZINE-CODEINE 19927461222 No Longer Active Blaine HERNANDEZ Active CHERATUSSIN AC 100-10 MG/5ML ORAL SYRUP 1 tsp by mouth every 4 hours as needed for cough GUAIFENESIN-CODEINE 30030481755 No Longe r Active Blaine HERNANDEZ Active ZITHROMAX Z-REYNA 250 MG ORAL TABLET 2 today, then 1 daily for 4 d ays AZITHROMYCIN 54735165905 No Longer Active Columba Parrish Act nael ZITHROMAX 250 MG ORAL TABLET 2 po today, then 1 po q days 2-5 20 14/03/21 AZITHROMYCIN 08793754912 No Longer Active Carlton Hu MD Active ZITHROMAX Z-REYNA 250 MG ORAL TABLET 2 today, then 1 daily for 4 d ays AZITHROMYCIN 41449696004 No Longer Active Columba Parrish Act nael AUGMENTIN 875-125 MG ORAL TABLET 1 po BID x 10 days 13/01/20 AMOXICILLIN-POT CLAVULANATE 85954646934 No Longer Active Diya Daphnebrayan KHAN Active ZITHROMAX 250 MG ORAL TABLET 2 po today, then 1 po q days 2-5 12/08/14 AZITHROMYCIN 28057139949 No Longer Active Carlton Hu MD Active TRAMADOL HCL 50 MG ORAL TABLET 1 po tid with ES Tylenol TRAMADOL HCL 97946002927 Active Carlton Hu MD Active PREMARIN 0.625 MG ORAL TABLET TAKE 1 TAB BY MOUTH DAILY ESTROGENS CONJUGATED 51557049249 No Longer Active Ridge Bess DO A ctive CYMBALTA 30 MG ORAL CAPSULE DELAYED RELEASE PARTICLES 1 cap by mouth daily DULOXETINE HCL 72338580773 No Longer Active Ridge tam DO Active AMOXICILLIN 500 MG ORAL CAPSULE 1 tab by mouth 3 times daily x 10 days AMOXICILLIN 99348960685 No Longer Active Carlton bustamante MD Active AMOXICILLIN 500 MG ORAL CAPSULE 1 tab by mouth 3 times daily x 10 days AMOXICILLIN 52170170366 No Longer Active Carlton bustamante MD Active PROMETHAZINE-CODEINE 6.25-10 MG/5ML ORAL SYRUP 1 tsp b y mouth every 8 hours prn cough PROMETHAZINE-CODEINE 26554752083 No Longer Acti ve Carlton Hu MD Active MEDROL 4 MG ORAL TABLET THERAPY PACK 6 pills x 1 day, then 5 pills x 1 day then 4 pills x 1 day, then 3 pills x 1 day, then 2 pills x 1 day, then 1 pill x 1 day, then stop METHYLPREDNISOLONE 38284241768 No Long er Active Perez Mora MD Active AZITHROMYCIN 250 MG ORAL TABLET 2 po qd x 1 day, then 1 po q d x 4 days AZITHROMYCIN 67379249569 No Longer Active Perez Ambriz MD Active SYMBICORT 160-4.5 MCG/ACT INHALATION AEROSOL 2 puffs bid wit h rinse after BUDESONIDE-FORMOTEROL FUMARATE 98916791613 N o Longer Active Perez Mora MD Active LYRICA 75 MG ORAL CAPSULE TAKE 1 CAPSULE BY MOUTH TWICE DAILY PREGABALIN 97105228305 No Longer Active Carlton Hu MD Acti ve TOPAMAX 25 MG ORAL TABLET 1 qHS x 1 week, then 1 BID x 1 week, then 1 qAM and 2 qHS x 1 week, then 2 BID (migraine prevention) T OPIRAMATE 69082946892 No Longer Active Jerica FUENTES Active TOPAMAX 50 MG ORAL TABLET take 1 tab po BID for migraines. 07/02 TOPIRAMATE 57695215781 No Longer Active Jerica FUENTES Active TOPAMAX 100 MG ORAL TABLET Take 1 tablet po bid TO PIRAMATE 78054858137 Active Carlton Hu MD Active TRIAMCINOLONE ACETONIDE 0.1 % EXTERNAL CREAM apply three roger es daily prn rash TRIAMCINOLONE ACETONIDE 97077185293 No Longer Active Carlton Hu MD Active PAXIL 40 MG ORAL TABLET take 1 tab po qday for depression 0 PAROXETINE HCL 67502914134 Active Carlton Hu MD Active CHERATUSSIN AC 100-10 MG/5ML ORAL SYRUP 5ml po q6hr PRN Cough 20 13/04/14 GUAIFENESIN-CODEINE 25954780077 No Longer Active Carlton Hu MD Active MEDROL 4 MG ORAL TABLET THERAPY PACK 6 tabs on day 1, 5 tabs on day 2, 4 tabs on day 3, 3 tabs on day 4, 2 tabs on day 5, 1 tab on day 6 2013 METHYLPREDNISOLONE 71358410361 No Longer Active Perez Mora MD Active AZITHROMYCIN 250 MG ORAL TABLET 2 po qd x 1 day, then 1 po q d x 4 days AZITHROMYCIN 76258459161 No Longer Active Perez Ambriz MD Active PROPRANOLOL HCL 60 MG ORAL TABLET 1 PO Q D PROPRANOLOL HCL 19961994784 No Longer Active Perez Mora MD Activ e CHERATUSSIN AC 100-10 MG/5ML ORAL SYRUP take one tsp po Q 6h ours prn cough GUAIFENESIN-CODEINE 18185335909 No Longer Active Zia Mora MD Active AUGMENTIN 875-125 MG ORAL TABLET 1 tab by mouth twice daily with food AMOXICILLIN-POT CLAVULANATE 42184137966 No Longer Act nael Perez Mora MD Active CHERATUSSIN AC 100-10 MG/5ML ORAL SYRUP 1 tsp by mouth every 4 hours as needed for cough GUAIFENESIN-CODEINE 68240586205 No Longe r Active Hugo Restrepo MD Active ACETAMINOPHEN-CODEINE #3 300-30 MG ORAL TABLET 1 PO Q 4-6 HRS ME N PAIN ACETAMINOPHEN-CODEINE 69828300857 No Longer Active Hugo Restrepo MD Active LEVAQUIN 500 MG ORAL TABLET take one po QD LEVO FLOXACIN 94369752139 No Longer Active Griffin HERNANDEZ Active PREDNISONE 20 MG ORAL TABLET Take 3 tabs daily for 3 d ays, 2 tabs daily for 3 days, 1 tab daily for 3 days, 1/2 tab daily for 3 days 11/07 PREDNISONE 02964447208 No Longer Active Carlton Hu MD Acti ve AVELOX 400 MG ORAL TABLET 1 tab by mouth daily MOXIFLOXACIN HCL 48654308431 No Longer Active Carlton Hu MD Active CHERATUSSIN AC 100-10 MG/5ML ORAL SYRUP 1 tsp by mouth every 4 hours as needed for cough GUAIFENESIN-CODEINE 87286613040 No Longe r Active Hugo Restrepo MD Active AVELOX 400 MG ORAL TABLET 1 tab by mouth daily MOXIFLOXACIN HCL 87003950804 No Longer Active Marcy De La Rosa MD PhD Active TERBINAFINE HCL 250 MG ORAL TABLET 1 qDay T ERBINAFINE HCL 63832119503 No Longer Active Marcy De La Rosa MD PhD Active CHERATUSSIN AC 100-10 MG/5ML ORAL SYRUP 1 tsp by mouth every 4 hours as needed for cough GUAIFENESIN-CODEINE 17049679220 No Longe r Active Marcy De La Rosa MD PhD Active AVELOX 400 MG ORAL TABLET 1 tab by mouth daily MOXIFLOXACIN HCL 09890838856 No Longer Active Marcy De La Rosa MD PhD Active HYDROCODONE-ACETAMINOPHEN 5-325 MG ORAL TABLET 1 po q 6hr PRN co ugh HYDROCODONE-ACETAMINOPHEN 49796611766 No Longer Active Marcy De La Rosa MD PhD Active PREDNISONE 20 MG ORAL TABLET 2 tabs daily for 3 days, 1 tab daily for 3 days, 1/2 tab daily for 2 days PREDNISONE 80507552527 No Longer Active Carlton Hu MD Active CEFDINIR 300 MG ORAL CAPSULE by mouth twice a day 2011 CEFDINIR 69708598281 No Longer Active Carlton Hu MD Acti ve HYDROCHLOROTHIAZIDE 25 MG ORAL TABLET 1 TAB PO DAILY HYDROCHLOROTHIAZIDE 70783135743 Active Carlton Hu MD A ctive ACETAMINOPHEN-CODEINE #3 300-30 MG ORAL TABLET 1 tablet po q 4-6 hrs prn pain ACETAMINOPHEN-CODEINE 44580935120 No Longer Active Ridge Bess DO Active ZITHROMAX 250 MG ORAL TABLET 2 po today, then 1 po q days 2-5 20 03/07/07 AZITHROMYCIN 19960124318 No Longer Active Carlton Hu MD Active CHERATUSSIN AC 100-10 MG/5ML ORAL SYRUP take 1 tsp po q4-6 h ours prn cough GUAIFENESIN-CODEINE 05345718779 No Longer Active Jayden Hu MD Active ACETAMINOPHEN-CODEINE #3 300-30 MG ORAL TABLET 1 PO Q 4-6 HR PRN PAIN ACETAMINOPHEN-CODEINE 15849138019 No Longer Active Arnol Hu MD Active LORTAB 7.5-500 MG/15ML ORAL ELIXIR 7.5 ml po q 4 hour prn cough HYDROCODONE-ACETAMINOPHEN 32893835179 No Longer Active Carlton Hu MD Active PREDNISONE 20 MG ORAL TABLET 1 po bid 3 days, then 1 po q day 3 days PREDNISONE 00523023356 No Longer Active Carlton Hu MD Active CEFDINIR 300 MG ORAL CAPSULE by mouth twice a day 2011 CEFDINIR 15591257568 No Longer Active Carlton Hu MD Acti ve CEFDINIR 300 MG ORAL CAPSULE by mouth twice a day 2010 CEFDINIR 54942919712 No Longer Active Carlton Hu MD Acti ve CEFDINIR 300 MG ORAL CAPSULE by mouth twice a day 2010 CEFDINIR 10812889557 No Longer Active Carlton Hu MD Acti ve TESSALON PERLES 100 MG ORAL CAPSULE 1 tablet by mouth 3 times daily as needed for cough BENZONATATE 01975758708 No Longer Active Carlton Hu MD Active CEFDINIR 300 MG ORAL CAPSULE by mouth twice a day 2010 CEFDINIR 50213731247 No Longer Active Carlton Hu MD Acti ve ZITHROMAX Z-REYNA 250 MG ORAL TABLET 2 today, then 1 daily for 4 d ays AZITHROMYCIN 48730627568 No Longer Active Hugo Restrepo MD Active TESSALON PERLES 100 MG ORAL CAPSULE 1 tablet by mouth 3 times daily as needed for cough TESSALON PERLES 100 MG ORAL CAPSULE 59666 7 BENZONATATE Inactive PREDNISONE 20 MG ORAL TABLET 1 po bid 3 days, then 1 po q day 3 days PREDNISONE 20 MG ORAL TABLET 582907 PREDNISONE [place] ctive LORTAB 7.5-500 MG/15ML ORAL ELIXIR 7.5 [...] cough CHERATUSSIN AC 100-10 MG/5ML ORAL SYRUP 119423 GUAIFENESIN-CODEINE Inactive ACETAMINOPHEN-CODEINE #3 300-30 MG ORAL TABLET 1 tablet po q 4-6 hrs prn pain ACETAMINOPHEN-CODEINE #3 300-30 MG ORAL TABLET ACETAMINOPHEN-CODEINE Inactive HYDROCODONE-ACETAMINOPHEN 5-325 MG ORAL TABLET 1 po q 6hr PRN co ugh HYDROCODONE-ACETAMINOPHEN 5-325 MG ORAL TABLET 249343 HYDROCODONE-ACETAMINOPHEN Inactive AVELOX 400 MG ORAL TABLET 1 tab by mouth daily AVELOX 400 MG ORAL TABLET 482848 MOXIFLOXACIN HCL Inactive CHERATUSSIN AC 100-10 MG/5ML ORAL SYRUP 1 tsp by mouth every 4 hours as needed for cough CHERATUSSIN AC 100-10 MG/5ML ORAL SYRUP 9 33058 GUAIFENESIN-CODEINE Inactive TERBINAFINE HCL 250 MG ORAL TABLET 1 qDay 07/08 TERBINAFINE HCL 250 MG ORAL TABLET 535072 TERBINAFINE HCL Inactive CHERATUSSIN AC 100-10 MG/5ML ORAL SYRUP 1 tsp by mouth every 4 hours as needed for cough CHERATUSSIN AC 100-10 MG/5ML ORAL SYRUP 9 43011 GUAIFENESIN-CODEINE Inactive ACETAMINOPHEN-CODEINE #3 300-30 MG ORAL TABLET 1 PO Q 4-6 HRS ME N PAIN ACETAMINOPHEN-CODEINE #3 300-30 MG ORAL TABLET ACETAMINOPHEN-CODEINE Inactive CHERATUSSIN AC 100-10 MG/5ML ORAL SYRUP 1 tsp by mouth every 4 hours as needed for cough CHERATUSSIN AC 100-10 MG/5ML ORAL SYRUP 9 22663 GUAIFENESIN-CODEINE Inactive AUGMENTIN 875-125 MG ORAL TABLET 1 tab by mouth twice daily with food AUGMENTIN 875-125 MG ORAL TABLET 383420 AMOXICIL MADELINE-POT CLAVULANATE Inactive CHERATUSSIN AC 100-10 MG/5ML ORAL SYRUP take one tsp po Q 6h ours prn cough CHERATUSSIN AC 100-10 MG/5ML ORAL SYRUP 048404 GUAIFENESIN-CODEINE Inactive PROPRANOLOL HCL 60 MG ORAL TABLET 1 PO Q D PROPRANOLOL HCL 60 MG ORAL TABLET 747033 PROPRANOLOL HCL Inactive TOPAMAX 50 MG ORAL TABLET take 1 tab po BID for migraines. 07/02 TOPAMAX 50 MG ORAL TABLET 564845 TOPIRAMATE Inacti ve TOPAMAX 25 MG ORAL TABLET 1 qHS x 1 week, then 1 BID x 1 week, then 1 qAM and 2 qHS x 1 week, then 2 BID (migraine prevention) TOPAMAX 25 MG ORAL TABLET 759419 TOPIRAMATE Inactive LYRICA 75 MG ORAL CAPSULE TAKE 1 CAPSULE BY MOUTH TWICE DAILY LYRICA 75 MG ORAL CAPSULE PREGABALIN Inactive SYMBICORT 160-4.5 MCG/ACT INHALATION AEROSOL 2 puffs bid wit h rinse after SYMBICORT 160-4.5 MCG/ACT INHALATION AEROSOL BUDESONIDE- FORMOTEROL FUMARATE Inactive PROMETHAZINE-CODEINE 6.25-10 MG/5ML ORAL SYRUP 1 tsp b y mouth every 8 hours prn cough PROMETHAZINE-CODEINE 6.25-10 MG/ 5ML ORAL SYRUP 507401 PROMETHAZINE-CODEINE Inactive CYMBALTA 30 MG ORAL CAPSULE DELAYED RELEASE PARTICLES 1 cap by mouth daily CYMBALTA 30 MG ORAL CAPSULE DELAYED RELE ASE PARTICLES 766114 DULOXETINE HCL Inactive PREMARIN 0.625 MG ORAL TABLET TAKE 1 TAB BY MOUTH DAILY PREMARIN 0.625 MG ORAL TABLET ESTROGENS CONJUGATED Inactive CHERATUSSIN AC 100-10 MG/5ML ORAL SYRUP 1 tsp by mouth every 4 hours as needed for cough CHERATUSSIN AC 100-10 MG/5ML ORAL SYRUP 9 22748 GUAIFENESIN-CODEINE Inactive PROMETHAZINE-CODEINE 6.25-10 MG/5ML ORAL SYRUP 1 tsp b y mouth every 6 hours if needed for cough PROMETHAZINE-CODEINE 6.25-10 MG/5ML ORAL SYRUP 918665 PROMETHAZINE-CODEINE Inactive CHERATUSSIN AC 100-10 MG/5ML ORAL SYRUP 1 tsp by mouth every 4 hours as needed for cough CHERATUSSIN AC 100-10 MG/5ML ORAL SYRUP 9 99837 GUAIFENESIN-CODEINE Inactive FLUTICASONE PROPIONATE 50 MCG/ACT NASAL SUSPENSION 1 t o 2 sprays each nostril daily FLUTICASONE PROPIONATE 50 MCG/AC T NASAL SUSPENSION 0988011 FLUTICASONE PROPIONATE Inactive PREDNISONE 20 MG ORAL TABLET 3 tab PO qd x 2d, 2 tab P O qd x 2d, 1 tab PO qd x 2d, 1/2 tab PO qd x 2d PREDNISONE 20 MG ORAL TAB LET 015959 PREDNISONE Inactive LEVOFLOXACIN 500 MG ORAL TABLET 1 tab PO daily x 10 days LEVOFLOXACIN 500 MG ORAL TABLET 111369 LEVOFLOXACIN Inactive CYCLOBENZAPRINE HCL 10 MG ORAL TABLET 1 tablet by mouth BID prn had pain CYCLOBENZAPRINE HCL 10 MG ORAL TABLET 115667 CYCLOBENZAPRINE HCL Inactive ZOCOR 40 MG ORAL TABLET 1 tab by mouth daily 4 ZOCOR 40 MG ORAL TABLET 262028 SIMVASTATIN Inactive TUSSIONEX PENNKINETIC ER 10-8 MG/5ML [...] FLUTICASONE PROPIO EFE 50 MCG/ACT NASAL SUSPENSION 2103629 FLUTICASONE PROPIONATE Inactive TUSSIONEX PENNKINETIC ER 10-8 [...] ays ZITHROMAX Z-REYNA 250 MG ORAL TABLET 536533 AZITHROMYCIN Inactive CEFDINIR 300 MG ORAL CAPSULE by mouth twice a day 2010 CEFDINIR 300 MG ORAL CAPSULE 494039 CEFDINIR Inactive CEFDINIR 300 MG ORAL CAPSULE by mouth twice a day 2010 CEFDINIR 300 MG ORAL CAPSULE 560465 CEFDINIR Inactive CEFDINIR 300 MG ORAL CAPSULE by mouth twice a day 2010 CEFDINIR 300 MG ORAL CAPSULE 096936 CEFDINIR Inactive CEFDINIR 300 MG ORAL CAPSULE by mouth twice a day 2011 CEFDINIR 300 MG ORAL CAPSULE 785342 CEFDINIR Inactive ZITHROMAX 250 MG ORAL TABLET 2 po today, then 1 po q days 2-5 20 03/07/07 ZITHROMAX 250 MG ORAL TABLET 696416 AZITHROMYCIN [place] ctive CEFDINIR 300 MG ORAL CAPSULE by mouth twice a day 2011 CEFDINIR 300 MG ORAL CAPSULE 20020704 CEFDINIR Inactive PREDNISONE 20 MG ORAL TABLET 2 tabs daily for 3 days, 1 tab daily for 3 days, 1/2 tab daily for 2 days PREDNISONE 20 MG ORAL T ABLET 114508 PREDNISONE Inactive AVELOX 400 MG ORAL TABLET 1 tab by mouth daily AVELOX 400 MG ORAL TABLET 409971 MOXIFLOXACIN HCL Inactive AVELOX 400 MG ORAL TABLET 1 tab by mouth daily AVELOX 400 MG ORAL TABLET 031693 MOXIFLOXACIN HCL Inactive PREDNISONE 20 MG ORAL TABLET Take 3 tabs daily for 3 d ays, 2 tabs daily for 3 days, 1 tab daily for 3 days, 1/2 tab daily for 3 days 11/07 PREDNISONE 20 MG ORAL TABLET 582940 PREDNISONE Inactive LEVAQUIN 500 MG ORAL TABLET take one po QD LEVAQUIN 500 MG ORAL TABLET 606522 LEVOFLOXACIN Inactive AZITHROMYCIN 250 MG ORAL TABLET 2 po qd x 1 day, then 1 po q d x 4 days AZITHROMYCIN 250 MG ORAL TABLET 548251 AZITHROMY GIOVANNI Inactive MEDROL 4 MG ORAL TABLET THERAPY PACK 6 tabs on day 1, 5 tabs on day 2, 4 tabs on day 3, 3 tabs on day 4, 2 tabs on day 5, 1 tab on day 6 2013 MEDROL 4 MG ORAL TABLET THERAPY PACK 562202 METHYLPREDNISOLONE [place] ctive CHERATUSSIN AC 100-10 MG/5ML ORAL SYRUP 5ml po q6hr PRN Cough 20 13/04/14 CHERATUSSIN AC 100-10 MG/5ML ORAL SYRUP 642640 GUAIFENE SIN-CODEINE Inactive TRIAMCINOLONE ACETONIDE 0.1 % EXTERNAL CREAM apply three roger es daily prn rash TRIAMCINOLONE ACETONIDE 0.1 % EXTERNAL CREAM 101 4314 TRIAMCINOLONE ACETONIDE Inactive AZITHROMYCIN 250 MG ORAL TABLET 2 po qd x 1 day, then 1 po q d x 4 days AZITHROMYCIN 250 MG ORAL TABLET 073803 AZITHROMY GIOVANNI Inactive MEDROL 4 MG ORAL TABLET THERAPY PACK 6 pills x 1 day, then 5 pills x 1 day then 4 pills x 1 day, then 3 pills x 1 day, then 2 pills x 1 day, then 1 pill x 1 day, then stop MEDROL 4 MG ORAL TABLET THERAPY PACK 604644 METHYLPREDNISOLONE Inactive AMOXICILLIN 500 MG ORAL CAPSULE 1 tab by mouth 3 times daily x 10 days AMOXICILLIN 500 MG ORAL CAPSULE 874085 AMOXICILL IN Inactive AMOXICILLIN 500 MG ORAL CAPSULE 1 tab by mouth 3 times daily x 10 days AMOXICILLIN 500 MG ORAL CAPSULE 609340 AMOXICILL IN Inactive ZITHROMAX 250 MG ORAL TABLET 2 po today, then 1 po q days 2-5 20 12/08/14 ZITHROMAX 250 MG ORAL TABLET 815959 AZITHROMYCIN [place] ctive AUGMENTIN 875-125 MG ORAL TABLET 1 po BID x 10 days 20 13/01/20 AUGMENTIN 875-125 MG ORAL TABLET 964422 AMOXICILLIN-POT CLAVULANATE Inactive ZITHROMAX Z-REYNA 250 MG ORAL TABLET 2 today, then 1 daily for 4 d ays ZITHROMAX Z-REYNA 250 MG ORAL TABLET 480538 AZITHROMYCIN Inactive ZITHROMAX 250 MG ORAL TABLET 2 po today, then 1 po q days 2-5 20 14/03/21 ZITHROMAX 250 MG ORAL TABLET 053318 AZITHROMYCIN [place] ctive ZITHROMAX Z-REYNA 250 MG ORAL TABLET 2 today, then 1 daily for 4 d ays ZITHROMAX Z-REYNA 250 MG ORAL TABLET 882374 AZITHROMYCIN Inactive CEFDINIR 300 MG ORAL CAPSULE 1 po BID x 10 days 06/21 CEFDINIR 300 MG ORAL CAPSULE 20020704 CEFDINIR Inactive ZITHROMAX 250 MG ORAL TABLET 2 po today, then 1 po q days 2-5 20 13/08/10 ZITHROMAX 250 MG ORAL TABLET 389813 AZITHROMYCIN [place] ctive LEVAQUIN 500 MG ORAL TABLET 1 tablet by mouth daily 20 13/09/24 LEVAQUIN 500 MG ORAL TABLET 19971102 LEVOFLOXACIN Inactive SINGULAIR 10 MG ORAL TABLET 1 po qday for allergies 20 14/01/12 SINGULAIR 10 MG ORAL TABLET 20010504 MONTELUKAST SODIUM Inactive AMOXICILLIN 500 MG ORAL CAPSULE 2 po BID x 10 days 201 09/29/08 AMOXICILLIN 500 MG ORAL CAPSULE 929558 AMOXICILLIN Inactive PREDNISONE 20 MG ORAL TABLET 2 tabs daily for 3 days, 1 tab daily for 3 days, 1/2 tab daily for 2 days PREDNISONE 20 MG ORAL T ABLET 569624 PREDNISONE Inactive ZITHROMAX Z-REYNA 250 MG ORAL TABLET 2 today, then 1 daily for 4 d ays ZITHROMAX Z-REYNA 250 MG ORAL TABLET 239016 AZITHROMYCIN Inactive PREDNISONE 20 MG ORAL TABLET 2 tabs daily for 3 days, 1 tab daily for 3 days, 1/2 tab daily for 2 days PREDNISONE 20 MG ORAL T ABLET 284647 PREDNISONE Inactive ZITHROMAX 250 MG ORAL TABLET 2 po today, then 1 po q days 2-5 14/09/04 ZITHROMAX 250 MG ORAL TABLET 865237 AZITHROMYCIN [place] ctive AMOXICILLIN 500 MG ORAL CAPSULE 1 cap by mouth three times a day AMOXICILLIN 500 MG ORAL CAPSULE 132155 AMOXICILLIN Inactive TERBINAFINE HCL 250 MG ORAL TABLET 1 qDay for nail fungus 7 TERBINAFINE HCL 250 MG ORAL TABLET 690545 TERBINAFINE HCL Inact nael Vital Signs Date [...] - Chem istry sodium, serum 132 mmol/L [id number] 6919/07/12 potassium, serum 2.7 mmol/L 3.5-5.2 chloride, serum 93 mmol/L 98-107 carbon dioxide, venous blood 30.8 mmol/L 21.0-32 .0 blood glucose 107 mg/dL 65-110 calcium, serum 9.3 mg/dL 8.5-10.1 urea nitrogen, blood 12 mg/dL 7-18 creatinine, serum 1.00 mg/dL 0.60-1.30 sodium, serum 142 mmol/L 999-512 2450/07/17 potassium, serum 4.2 mmol/L 3.5-5.2 chloride, serum 106 mmol/L 98-107 carbon dioxide, venous blood 29.9 mmol/L 21.0-32 .0 blood glucose 108 mg/dL 65-110 calcium, serum 9.1 mg/dL 8.5-10.1 urea nitrogen, blood 11 mg/dL 7-18 creatinine, serum 0.81 mg/dL 0.60-1.30 Lab Report: Rapid Strep - Lab Microbial identification kit, rapid strep method Negative Negative Encounters Code Encounter Date Provider Facility [id number] Level 3 Est. Patient 10:26:00 SYSTEM SUPPORT TECHNICIAN [place] OPERATOR [facility] CPT-79283 Level 3 Est. Patient 13:35:41 SYSTEM SUPPORT TECHNICIAN Carlton rich MD [facility] CPT-27302 Level 3 Est. Patient 10:03:52 SYSTEM SUPPORT TECHNICIAN Carlton rich MD [facility] CPT-80475 Level 3 Est. Patient 12:17:50 CDT Hugo Restrepo MD [facility] CPT-11764 Level 3 Est. Patient 13:42:38 CDT Italo KHAN [facility] CPT-91576 Level 3 Est. Patient 13:23:51 CDT Diya Mariana holtgideon [facility] [place] CPT-89675 Level 3 Est. Patient 14:22:19 SYSTEM SUPPORT TECHNICIAN Diya Mariana cobian [facility] CPT-46475 Level 3 Est. Patient 10:11:46 CDT Carlton rich MD [facility] CPT-24551 Level 3 Est. Patient 17:29:43 CDT Elise Cesar spaulding [facility] CPT-66037 Level 3 Est. Patient 11:58:06 CDT El[address] And chelly [facility] CPT-55172 Level 4 Est. Patient 14:36:51 CDT Carlton rich MD [facility]-27148 Level 3 Est. Patient 18:16:00 SYSTEM SUPPORT TECHNICIAN Blaine Freeman [facility] CPT-34169 Level 3 Est. Patient 09:45:49 SYSTEM SUPPORT TECHNICIAN Carlton rich MD [facility] CPT-38051 Level 3 Est. Patient 13:19:20 CDT Carlton rich MD [facility] CPT-39475 Level 3 Est. Patient 13:06:43 CDT Ridge tam DO [facility] CPT-04844 Level 3 Est. Patient 10:03:07 CDT Perez Mora MD [facility] CPT-60945 Level 3 Est. Patient 19:50:35 SYSTEM SUPPORT TECHNICIAN Carlton rich MD [facility] CPT-85225 Level 4 Est. Patient 18:05:01 SYSTEM SUPPORT TECHNICIAN Carlton rich MD [facility] CPT-84754 Level 3 Est. Patient 10:45:55 SYSTEM SUPPORT TECHNICIAN Hugo Restrepo MD [facility] CPT-39152 Level 3 Est. Patient 14:12:49 CDT Griffin lincoln [facility] CPT-29265 Level 3 Est. Patient 17:37:24 CDT Carlton rich MD [facility] CPT-85279 Level 3 Est. Patient 16:51:54 CDT Carlton rich MD [facility]-28262 Level 3 Est. Patient 12:18:11 CDT Hugo Restrepo MD [facility] CPT-03115 Level 3 Est. Patient 11:30:25 CDT Marcy crisostomo MD PhD [facility] CPT-01348 Level 3 Est. Patient 12:00:47 SYSTEM SUPPORT TECHNICIAN Carlton rich MD [facility]-40971 Level 3 Est. Patient 16:31:06 SYSTEM SUPPORT TECHNICIAN Carlton rich MD [facility] CPT-56924 Level 3 Est. Patient 16:23:24 SYSTEM SUPPORT TECHNICIAN Ridge tam [facility] CPT-20271 Level 3 Est. Patient 12:34:12 CDT Carlton rich MD [facility] CPT-98589 Level 2 Est. Patient 15:43:33 CDT Robi armstrong MD [facility] CPT-74013 Level 4 Est. Patient 14:04:44 CDT Carlton rich MD [facility] CPT-87015 Level 3 Est. Patient 05:47:59 CDT Ridge tam [facility] CPT-39619 Level 3 Est. Patient 13:12:53 SYSTEM SUPPORT TECHNICIAN Carlton rich MD [facility]-74893 Level 3 Est. Patient 14:26:53 CDT Hugo Restrepo MD [facility] Procedures Code Procedure Name Date Entry Date Standard Desc ription CPT-J1040 Depo Medrol 80 mg (Methyl Prednisolone A cetate) 10:42:44 CDT CPT-J1100 Decadron 8mg (Dexamethasone) 10:42:44 CDT 2 CPT-J0696 Rocephin 1gm Inj Solr 14:32:13 CDT CPT-J1020 Depo Medrol 60 mg (Methyl Prednisolone A cetate) 14:32:13 CDT CPT-J1100 Decadron 6mg (Dexamethasone) 14:32:13 CDT 2 CPT-61906 Hip bilat min 2V w AP pelvis 13:16:20 CDT 2 CPT-67049 Pelvis only 13:07:33 CDT CPT-27771 Spec Collection and Handling Fee 11:25:12 C DT CPT-23273 Fluzone Quadrivalent Intramuscular Suspe nsion 0.5 ML 14:31:55 CDT CPT-97830 Abx/Therapy Injection 13:28:47 SYSTEM SUPPORT TECHNICIAN CPT-J2930 Solu Medrol 125 mg (Methyl Prednisolone Sodium Succinate) 12:00:47 SYSTEM SUPPORT TECHNICIAN CPT-16547 Venipuncture Draw Fee 11:33:31 CDT CPT-82196 EKG Trac and Interp 11:21:09 CDT CPT-58210 Chest 2V Frontal and Lat 11:21:09 CDT 12/15 CPT-38242 Venipuncture Draw Fee 08:02:34 CDT CPT-67616 Chest 2V Frontal and Lat 05:47:59 CDT 06/05
--- OUTSIDE RECORDS SUMMARY | 2019-10-08 10:10 | XMS REPORT | Clinical Summary ---
Author Author Caitlin, Juliana Martinez Organization [facility] Address Unknown Phone Unavailable Allergies, Adverse Reactions, [...] Headache Preventive health care V70.0 Active Carlton butsamante MD Routine general medical examination at a health care facility BRONCHITIS ICD-490 Inactive Hugo Restrepo MD 201 [...] daily x 10 days 20 14/04/28 AMOXICILLIN 81732124234 No Longer Active Carlton Hu MD Active AMOXICILLIN 500 MG CAP 1 tab by mouth 3 times daily x 10 days 20 13/03/08 AMOXICILLIN 36127197886 No Longer Active Carlton Hu MD Active CHERATUSSIN AC 100-10 MG/5ML SYRP 1 tsp by mouth every 4 hours as needed for cough GUAIFENESIN-CODEINE 16783676276 Active Carlton banks MD Active CYCLOBENZAPRINE HCL 10 MG TABS 1 tablet by mouth BID prn had pain 2 CYCLOBENZAPRINE HCL 37838033186 Active Carlton Hu MD A ctive PROMETHAZINE-CODEINE 6.25-10 MG/5ML SYRP 1 tsp by mouth ever y 8 hours prn cough PROMETHAZINE-CODEINE 76187997084 No Longer Active Robert Hu MD Active MEDROL (REYNA) 4 MG TABS 6 pills x 1 day, then 5 pill s x 1 day then 4 pills x 1 day, then 3 pills x 1 day, then 2 pills x 1 day, then 1 pill x 1 day, then stop METHYLPREDNISOLONE 02172368831 No Longer Active Parris Mora MD Active AZITHROMYCIN 250 MG TABS 2 po qd x 1 day, then 1 po qd x 4 days AZITHROMYCIN 96973494828 No Longer Active Perez Mora MD Active SYMBICORT 160-4.5 MCG/ACT AERO 2 puffs bid with rinse after 2011 BUDESONIDE-FORMOTEROL FUMARATE 99733647785 No Longer Active Perez Mora MD Active LYRICA 75 MG CAPS TAKE 1 CAPSULE BY MOUTH TWICE DAILY 2013 PREGABALIN 15949078816 No Longer Active Carlton Hu MD Active LYRICA 100 MG CAPS Take 1 tab po BID for fibromyalgia PREGABALIN 74031664757 Active Carlton Hu MD Active TOPAMAX 25 MG TABS 1 qHS x 1 week, then 1 BID x 1 week, then 1 qAM and 2 qHS x 1 week, then 2 BID (migraine prevention) TOPIRAMAT E 32803298789 No Longer Active Jerica FUENTES Active TOPAMAX 50 MG TABS take 1 tab po BID for migraines. 12/07/10 TOPIRAMATE 57875672416 No Longer Active Jerica FUENTES Ac tive TOPAMAX 100 MG TABS Take 1 tablet po bid TOPIRAMATE 4999 1314937 Active Carlton Hu MD Active TRIAMCINOLONE ACETONIDE 0.1 % CREA apply three times daily prn r beatrice TRIAMCINOLONE ACETONIDE 74909762877 No Longer Active Carlton Hu MD Active PAXIL 40 MG TAB take 1 tab po qday for depression PAROXETINE HCL 03706647881 Active Carlton Hu MD Active CYMBALTA 30 MG CPEP 1 cap by mouth daily DULOXE SNEHA HCL 39540110506 Active Carlton Hu MD Active CHERATUSSIN AC 100-10 MG/5ML SYRP 5ml po q6hr PRN Cough GUAIFENESIN-CODEINE 68966859906 No Longer Active Carlton Hu MD Active MEDROL (REYNA) 4 MG TABS 6 tabs on day 1, 5 tabs on d ay 2, 4 tabs on day 3, 3 tabs on day 4, 2 tabs on day 5, 1 tab on day 6 METHYLPREDNISOLONE 14696199245 No Longer Active Perez Mora MD Active AZITHROMYCIN 250 MG TABS 2 po qd x 1 day, then 1 po qd x 4 days AZITHROMYCIN 16163600667 No Longer Active Perez Mora MD Active PROPRANOLOL HCL 60 MG TABS 1 PO Q D PROPRANOL OL HCL 57393696882 No Longer Active Perez Mora MD Active CHERATUSSIN AC 100-10 MG/5ML SYRP take one tsp po Q 6hours prn c ough GUAIFENESIN-CODEINE 96825164301 No Longer Active Perez Means Active AUGMENTIN 875-125 MG TAB 1 tab by mouth twice daily with food 20 12/03/31 AMOXICILLIN-POT CLAVULANATE 23993703983 No Longer Active Chanel Mora MD Active CHERATUSSIN AC 100-10 MG/5ML SYRP 1 tsp by mouth every 4 hours as needed for cough GUAIFENESIN-CODEINE 54484802713 No Longer Activ lidia Restrepo MD Active ACETAMINOPHEN-CODEINE #3 300-30 MG TABS 1 PO Q 4-6 HRS PRN PAIN ACETAMINOPHEN-CODEINE 42893402227 No Longer Active Hugo Restrepo MD Active LEVAQUIN 500 MG TABS take one po QD LEVOFLOXACI N 04921238242 No Longer Active Griffin HERNANDEZ Active PREDNISONE 20 MG TAB Take 3 tabs daily for 3 days , 2 tabs daily for 3 days, 1 tab daily for 3 days, 1/2 tab daily for 3 days P REDNISONE 98820693395 No Longer Active Carlton Hu MD Active AVELOX 400 MG TABS 1 tab by mouth daily MOXIFLO XACIN HCL 15073114859 No Longer Active Carlton Hu MD Active CHERATUSSIN AC 100-10 MG/5ML SYRP 1 tsp by mouth every 4 hours as needed for cough GUAIFENESIN-CODEINE 53927366090 No Longer Activ e Hugo Restrepo MD Active AVELOX 400 MG TABS 1 tab by mouth daily MOXIFLO XACIN HCL 87829147820 No Longer Active Marcy De La Rosa MD PhD Active TERBINAFINE HCL 250 MG TABS 1 qDay TERBINAF INE HCL 92248407228 No Longer Active Marcy De La Rosa MD PhD Active CHERATUSSIN AC 100-10 MG/5ML SYRP 1 tsp by mouth every 4 hours as needed for cough GUAIFENESIN-CODEINE 30747484569 No Longer Activ e Marcy De La Rosa MD PhD Active AVELOX 400 MG TABS 1 tab by mouth daily MOXIFLO XACIN HCL 71860015126 No Longer Active Marcy De La Rosa MD PhD Active HYDROCODONE-ACETAMINOPHEN 5-325 MG TABS 1 po q 6hr PRN cough 201 05/09/16 HYDROCODONE-ACETAMINOPHEN 23222414499 No Longer Active Marcy De La Rosa MD PhD Active PREDNISONE 20 MG TAB 2 tabs daily for 3 days, 1 t ab daily for 3 days, 1/2 tab daily for 2 days PREDNISONE 93850457406 No Longer Active Carlton Hu MD Active CEFDINIR 300 MG CAPS by mouth twice a day CEFDI ODILIA 79293975252 No Longer Active Carlton Hu MD Active ZOCOR 40 MG TAB 1 tab by mouth daily SIMVASTATIN 96635125153 Active Carlton Hu MD Active HYDROCHLOROTHIAZIDE 25 MG TABS 1 TAB PO DAILY H YDROCHLOROTHIAZIDE 37312921209 Active Carlton Hu MD Active ACETAMINOPHEN-CODEINE #3 300-30 MG TABS 1 tablet po q 4-6hrs prn pain ACETAMINOPHEN-CODEINE 55660596386 No Longer Active Ridge Bess DO Active ZITHROMAX 250 MG TAB 2 po today, then 1 po q days 2-5 AZITHROMYCIN 45314230148 No Longer Active Carlton Hu MD Acti ve CHERATUSSIN AC 100-10 MG/5ML SYRP take 1 tsp po q4-6 hours prn c ough GUAIFENESIN-CODEINE 07991298707 No Longer Active Carlton Hu MD Active ACETAMINOPHEN-CODEINE #3 300-30 MG TABS 1 PO Q 4-6 HR PRN PAIN 2 ACETAMINOPHEN-CODEINE 54298857126 No Longer Active Carlton rich MD Active LORTAB 7.5-500 MG/15ML ELIX 7.5 ml po q 4 hour prn cough HYDROCODONE-ACETAMINOPHEN 35939818386 No Longer Active Carlton Hu MD Active PREDNISONE 20 MG TAB 1 po bid 3 days, then 1 po q day 3 days 201 05/03/07 PREDNISONE 90853560063 No Longer Active Carlton Hu MD Active ELMIRON 100 MG CAPS 2 tablets in the am and 1 tablet at hs PENTOSAN POLYSULFATE SODIUM 73036643334 Active Gracie Lowland Active CEFDINIR 300 MG CAPS by mouth twice a day CEFDI ODILIA 73434367877 No Longer Active Carlton Hu MD Active CEFDINIR 300 MG CAPS by mouth twice a day CEFDI ODILIA 19769260795 No Longer Active Carlton Hu MD Active CEFDINIR 300 MG CAPS by mouth twice a day CEFDI ODILIA 20292308070 No Longer Active Carlton Hu MD Active TESSALON PERLES 100 MG CAP 1 tablet by mouth 3 times daily a s needed for cough BENZONATATE 69174797463 No Longer Active Carlton bustamante MD Active CEFDINIR 300 MG CAPS by mouth twice a day CEFDI ODIILA 26275354781 No Longer Active Carlton Hu MD Active ZITHROMAX Z-REYNA 250 MG TABS 2 today, then 1 daily for 4 days 201 04/09/17 AZITHROMYCIN 67268839256 No Longer Active Hugo Restrepo MD Active PREMARIN 0.625 MG TABS TAKE 1 TAB BY MOUTH DAILY ESTROGENS CONJUGATED 94375820181 Active Carlton Hu MD Active TESSALON PERLES 100 MG CAP 1 tablet by mouth 3 times daily a s needed for cough TESSALON PERLES 100 MG CAP 999507 BENZONATATE I nactive PREDNISONE 20 MG TAB 1 po bid 3 days, then 1 po q day 3 days 201 05/03/07 PREDNISONE 20 MG TAB 299828 PREDNISONE Inactive LORTAB 7.5-500 MG/15ML ELIX 7.5 ml po q 4 hour prn cough LORTAB 7.5-500 MG/15ML ELIX HYDROCODONE-ACETAMINOPHEN Inacti ve ACETAMINOPHEN-CODEINE #3 300-30 MG TABS 1 PO Q 4-6 HR PRN PAIN 2 ACETAMINOPHEN-CODEINE #3 300-30 MG TABS 068556 ACETAMIN OPHEN-CODEINE Inactive CHERATUSSIN AC 100-10 MG/5ML SYRP take 1 tsp po q4-6 hours prn c ough CHERATUSSIN AC 100-10 MG/5ML SYRP 523680 GUAIFENESIN-CO DEINE Inactive ACETAMINOPHEN-CODEINE #3 300-30 MG TABS 1 tablet po q 4-6hrs prn pain ACETAMINOPHEN-CODEINE #3 300-30 MG TABS 085197 ACETAMIN OPHEN-CODEINE Inactive HYDROCODONE-ACETAMINOPHEN 5-325 MG TABS 1 po q 6hr PRN cough 201 05/09/16 HYDROCODONE-ACETAMINOPHEN 5-325 MG TABS 567784 HYDROCODONE-ACETAMINOPHEN Inactive AVELOX 400 MG TABS 1 tab by mouth daily A VELOX 400 MG TABS 925444 MOXIFLOXACIN HCL Inactive CHERATUSSIN AC 100-10 MG/5ML SYRP 1 tsp by mouth every 4 hours as needed for cough CHERATUSSIN AC 100-10 MG/5ML SYRP 089927 GUAIFENESIN-CODEINE Inactive TERBINAFINE HCL 250 MG TABS 1 qDay TERBINAFINE HCL 250 MG TABS 965612 TERBINAFINE HCL Inactive CHERATUSSIN AC 100-10 MG/5ML SYRP 1 tsp by mouth every 4 hours as needed for cough CHERATUSSIN AC 100-10 MG/5ML SYRP 026770 GUAIFENESIN-CODEINE Inactive ACETAMINOPHEN-CODEINE #3 300-30 MG TABS 1 PO Q 4-6 HRS PRN PAIN ACETAMINOPHEN-CODEINE #3 300-30 MG TABS 523586 ACETAMINOPHEN-CODEIN E Inactive CHERATUSSIN AC 100-10 MG/5ML SYRP 1 tsp by mouth every 4 hours as needed for cough CHERATUSSIN AC 100-10 MG/5ML SYRP 078335 GUAIFENESIN-CODEINE Inactive AUGMENTIN 875-125 MG TAB 1 tab by mouth twice daily with food 20 12/03/31 AUGMENTIN 875-125 MG TAB 440934 AMOXICILLIN-POT CLAVULA EFE Inactive CHERATUSSIN AC 100-10 MG/5ML SYRP take one tsp po Q 6hours prn c ough CHERATUSSIN AC 100-10 MG/5ML SYRP 014169 GUAIFENESIN-CO DEINE Inactive PROPRANOLOL HCL 60 MG TABS 1 PO Q D P ROPRANOLOL HCL 60 MG TABS 795747 PROPRANOLOL HCL Inactive TOPAMAX 50 MG TABS take 1 tab po BID for migraines. 12/07/10 TOPAMAX 50 MG TABS 971321 TOPIRAMATE Inactive TOPAMAX 25 MG TABS 1 qHS x 1 week, then 1 BID x 1 week, then 1 qAM and 2 qHS x 1 week, then 2 BID (migraine prevention) TOPAMAX 2 5 MG TABS 798348 TOPIRAMATE Inactive LYRICA 75 MG CAPS TAKE 1 CAPSULE BY MOUTH TWICE DAILY LYRICA 75 MG CAPS PREGABALIN Inactive SYMBICORT 160-4.5 MCG/ACT AERO 2 puffs bid with rinse after 2011 SYMBICORT 160-4.5 MCG/ACT AERO BUDESONIDE-FORMOT SÁNCHEZ FUMARATE Inactive PROMETHAZINE-CODEINE 6.25-10 MG/5ML SYRP 1 tsp by mouth ever y 8 hours prn cough PROMETHAZINE-CODEINE 6.25-10 MG/5ML SYRP 563392 PROMETHAZINE-CODEINE Inactive ZITHROMAX Z-REYNA 250 MG TABS 2 today, then 1 daily for 4 days 201 04/09/17 ZITHROMAX Z-REYNA 250 MG TABS 6605501 AZITHROMYCIN Inac tive CEFDINIR 300 MG CAPS by mouth twice a day CEFDINIR 300 MG CAPS 20020704 CEFDINIR Inactive CEFDINIR 300 MG CAPS by mouth twice a day CEFDINIR 300 MG CAPS 20020704 CEFDINIR Inactive CEFDINIR 300 MG CAPS by mouth twice a day CEFDINIR 300 MG CAPS 493686 CEFDINIR Inactive CEFDINIR 300 MG CAPS by mouth twice a day CEFDINIR 300 MG CAPS 20020704 CEFDINIR Inactive ZITHROMAX 250 MG TAB 2 po today, then 1 po q days 2-5 ZITHROMAX 250 MG TAB 0961293 AZITHROMYCIN Inactive CEFDINIR 300 MG CAPS by mouth twice a day CEFDINIR 300 MG CAPS 20020704 CEFDINIR Inactive PREDNISONE 20 MG TAB 2 tabs daily for 3 days, 1 t ab daily for 3 days, 1/2 tab daily for 2 days PREDNISONE 20 MG TAB 571574 PREDNISON E Inactive AVELOX 400 MG TABS 1 tab by mouth daily A VELOX 400 MG TABS 251046 MOXIFLOXACIN HCL Inactive AVELOX 400 MG TABS 1 tab by mouth daily A VELOX 400 MG TABS 300143 MOXIFLOXACIN HCL Inactive PREDNISONE 20 MG TAB Take 3 tabs daily for 3 days , 2 tabs daily for 3 days, 1 tab daily for 3 days, 1/2 tab daily for 3 days PREDNISONE 20 MG TAB 227801 PREDNISONE Inactive LEVAQUIN 500 MG TABS take one po QD LEVAQUIN 50 0 MG TABS 588963 LEVOFLOXACIN Inactive AZITHROMYCIN 250 MG TABS 2 po qd x 1 day, then 1 po qd x 4 days AZITHROMYCIN 250 MG TABS 3916886 AZITHROMYCIN Inactiv e MEDROL (REYNA) 4 MG TABS 6 tabs on day 1, 5 tabs on d ay 2, 4 tabs on day 3, 3 tabs on day 4, 2 tabs on day 5, 1 tab on day 6 MEDROL (REYNA) 4 MG TABS METHYLPREDNISOLONE Inactive CHERATUSSIN AC 100-10 MG/5ML SYRP 5ml po q6hr PRN Cough CHERATUSSIN AC 100-10 MG/5ML SYRP 794133 GUAIFENESIN-CODEINE Inacti ve TRIAMCINOLONE ACETONIDE 0.1 % CREA apply three times daily prn r beatrice TRIAMCINOLONE ACETONIDE 0.1 % CREA 5188042 TRIAMCINOLONE ACETONIDE Inactive AZITHROMYCIN 250 MG TABS 2 po qd x 1 day, then 1 po qd x 4 days AZITHROMYCIN 250 MG TABS 4822072 AZITHROMYCIN Inactiv e MEDROL (REYNA) 4 MG [...] days 20 13/03/08 AMOXICILLIN 500 MG CAP 620196 AMOXICILLIN Inactive AMOXICILLIN 500 MG CAP 1 tab by mouth 3 times daily x 10 days 20 14/04/28 AMOXICILLIN 500 MG CAP 410674 AMOXICILLIN Inactive Vital Signs Date Name Value [...] 11 .6-14.8 platelet count 371 10^3/MM^3 10*3/mm3 403-984 8098/10/23 mean corpuscular volume, RBC 90 fL 80-97 hematocrit, blood 43.9 % 36.0-46.0 hemoglobin, blood 15.0 g/dL 12.0-16.0 erythrocyte (RBC) count 4.89 10^6/MM^3 10*6/mm3 4.04-5.4 8 leukocyte count, blood 4.1 10^3/MM^3 10*3/mm3 4.6-10.2 Encounters Code Encounter Date Provider Facility CPT-46210 Level 3 Est. Patient 10:03:07 CDT Perez Mora MD [facility]-23878 Level 3 Est. Patient 19:50:35 BRICK MAKER Carlton rich MD [facility]-15868 Level 4 Est. Patient 18:05:01 BRICK MAKER Carlton rich MD [facility]-31583 Level 3 Est. Patient 10:45:55 BRICK MAKER Hugo Restrepo MD [facility]-90604 Level 3 Est. Patient 14:12:49 CDT Griffin HERNANDEZ [facility]-45564 Level 3 Est. Patient 17:37:24 CDT Carlton rich MD [facility]-87377 Level 3 Est. Patient 16:51:54 CDT Carlton rich MD [facility]-55678 Level 3 Est. Patient 12:18:11 CDT Hugo Restrepo MD [facility]-25554 Level 3 Est. Patient 11:30:25 CDT Marcy crisostomo MD PhD [facility]-75437 Level 3 Est. Patient 12:00:47 BRICK MAKER Carlton rich MD [facility]-54274 Level 3 Est. Patient 16:31:06 BRICK MAKER Carlton rich MD [facility]-74215 Level 3 Est. Patient 16:23:24 BRICK MAKER Ridge tam DO [facility]-67315 Level 3 Est. Patient 12:34:12 CDT Carlton rich MD [facility] CPT-36785 Level 2 Est. Patient 15:43:33 CDT Robi armstrong MD [facility] CPT-44159 Level 4 Est. Patient 14:04:44 CDT Carlton rich MD [facility] CPT-24032 Level 3 Est. Patient 05:47:59 CDT Ridge tam DO [facility] CPT-89186 Level 3 Est. Patient 13:12:53 BRICK MAKER Carlton rich MD [facility] CPT-40325 Level 3 Est. Patient 14:26:53 CDT Hugo Restrepo MD [facility] Procedures Code Procedure Name Date Entry Date Standard Desc ription CPT-48052 Fluzone Quadrivalent Intramuscular Suspe nsion 0.5 ML 14:31:55 CDT CPT-37878 Abx/Therapy Injection 13:28:47 BRICK MAKER CPT-J2930 Solu Medrol 125 mg (Methyl Prednisolone Sodium Succinate) 12:00:47 BRICK MAKER CPT-74773 Venipuncture Draw Fee 11:33:31 CDT CPT-87712 EKG Trac and Interp 11:21:09 CDT CPT-18519 Chest 2V Frontal and Lat 11:21:09 CDT 12/15 CPT-06278 Venipuncture Draw Fee 08:02:34 CDT CPT-25375 Chest 2V Frontal and Lat 05:47:59 CDT 06/05
--- OUTSIDE RECORDS SUMMARY | 2019-10-08 10:10 | XMS REPORT | Clinical Summary ---
Author Author Caitlin, Juliana Martinez Organization [facility] Address Unknown Phone Unavailable Allergies, Adverse [...] po qd x 5 days P REDNISONE [id number] No Longer Active Perez Mora MD Active PROAIR HFA 108 (90 BASE) MCG/ACT INHALATION AEROSOL SO LUTION 2 puffs four times a day as needed ALBUTEROL SULFATE 54461197259 No Long er Active Becky FUENTES Active ASPIRIN 81 MG ORAL TABLET 1 po qd ASPIRIN 54854306562 Active Carlton Hu MD Active PREDNISONE 20 MG ORAL TABLET 1 tab twice daily for 3 d ay, then one daily for three days PREDNISONE 35186331377 No Longer Active Carlton Hu MD Active AUGMENTIN 875-125 MG ORAL TABLET 1 po BID x 10 days 20 16/03/22 AMOXICILLIN-POT CLAVULANATE 78219779778 No Longer Active Elise Garcia APRN Active TERBINAFINE HCL 250 MG ORAL TABLET 1 qDay for nail fungus 7 TERBINAFINE HCL 36836011695 No Longer Active Carlton Hu MD A ctive TUSSIONEX PENNKINETIC ER 10-8 MG/5ML ORAL SUSPENSION E XTENDED RELEASE 5ml po q12hr PRN Cough HYDROCOD POLST-CHLORPHEN POLST 07685497008 Active Perez Mora MD Active AMOXICILLIN 500 MG ORAL CAPSULE 1 cap by mouth three times a day AMOXICILLIN 38963274945 No Longer Active Carlton Hu MD Active ELMIRON 100 MG ORAL CAPSULE 2 tablets in the am and 1 tablet at hs PENTOSAN POLYSULFATE SODIUM 86557935030 No Longer Active Robert Hu MD Active MUCINEX D 60-600 MG ORAL TABLET EXTENDED RELEASE 12 HOUR 1 t ab po q am PSEUDOEPHEDRINE-GUAIFENESIN 71616451503 No Longer Act nael Carlton Hu MD Active MUCINEX DM MAXIMUM STRENGTH 60-1200 MG ORAL TABLET EXT ENDED RELEASE 12 HOUR 1 tab po q am DEXTROMETHORPHAN-GUAIFENESIN 93349470515 No Longer Active Carlton Hu MD Active TUSSIONEX PENNKINETIC ER 10-8 MG/5ML ORAL SUSPENSION E XTENDED RELEASE 5ml po q12hr PRN Cough HYDROCOD POLST-CHLORPHEN POLST 5 5353397840 No Longer Active Carlton Hu MD Active POTASSIUM CHLORIDE ER 20 MEQ ORAL TABLET EXTENDED RELE ASE Take 1 by mouth 4 times daily for 7 days POTASSIUM CHLORIDE 71520770500 No Longer Active Carlton Hu MD Active ZITHROMAX 250 MG ORAL TABLET 2 po today, then 1 po q days 2-5 20 14/09/04 AZITHROMYCIN 89320577965 No Longer Active Elise Garcia APRN Active TUSSIONEX PENNKINETIC ER 10-8 MG/5ML ORAL SUSPENSION E XTENDED RELEASE 5 ml twice a day as needed for cough HYDROCOD POLST-CHLORPH EN POLST 10721703732 No Longer Active Elise Garcia APRN Active MONTELUKAST SODIUM 10 MG ORAL TABLET 1 po daily for Allergy MONTELUKAST SODIUM 25518120661 Active Carlton Hu MD Ac tive TUSSIONEX PENNKINETIC ER 10-8 MG/5ML ORAL SUSPENSION E XTENDED RELEASE 5ml po q12hr PRN Cough HYDROCOD POLST-CHLORPHEN POLST 5 9819112059 No Longer Active Hugo Restrepo MD Active GABAPENTIN 100 MG ORAL CAPSULE 1 po BID for fibromyalgia GABAPENTIN 79341283634 Active Carlton Hu MD Active LYRICA 100 MG ORAL CAPSULE Take 1 tab po BID for fibromyalgia 20 11/08/21 PREGABALIN 03753526447 No Longer Active Elise Garcia APRN A ctive PREDNISONE 20 MG ORAL TABLET 2 tabs daily for 3 days, 1 tab daily for 3 days, 1/2 tab daily for 2 days PREDNISONE 73149217115 No Longer Active Diya De Guzman APRN Active TUSSIONEX PENNKINETIC ER 10-8 MG/5ML ORAL SUSPENSION E XTENDED RELEASE 5 mL PO q 12 hrs PRN cough HYDROCOD POLST-CHLORPHEN POLST 775274 20097 No Longer Active Jillina Gege RICEN Active FLUTICASONE PROPIONATE 50 MCG/ACT NASAL SUSPENSION 2 s prays each nostril daily until bottle is empty FLUTICASONE PROPIONATE 504594189 99 No Longer Active Diya De Guzman APRN Active ASMANEX 60 METERED DOSES 220 MCG/INH INHALATION AEROSO L POWDER BREATH ACTIVATED 1 puff bid with rinse after MOMETASONE FUROATE 5775817 4102 No Longer Active Diya De Guzman APRN Active ZITHROMAX Z-REYNA 250 MG ORAL TABLET 2 today, then 1 daily for 4 d ays AZITHROMYCIN 33713810298 No Longer Active Elise Garcia APRN Active TUSSIONEX PENNKINETIC ER 10-8 MG/5ML ORAL SUSPENSION E XTENDED RELEASE 5ml po q12hr PRN Cough HYDROCOD POLST-CHLORPHEN POLST 5 8879494053 No Longer Active Elise Garcia APRN Active PREDNISONE 20 MG ORAL TABLET 2 tabs daily for 3 days, 1 tab daily for 3 days, 1/2 tab daily for 2 days PREDNISONE 65446803505 No Longer Active Diya De Guzman APRN Active AMOXICILLIN 500 MG ORAL CAPSULE 2 po BID x 10 days 201 09/29/08 AMOXICILLIN 56484755955 No Longer Active Diya De Guzman APRN Act nael SINGULAIR 10 MG ORAL TABLET 1 po qday for allergies 20 14/01/12 MONTELUKAST SODIUM 30751544744 No Longer Active Carlton Hu MD Active LEVAQUIN 500 MG ORAL TABLET 1 tablet by mouth daily 20 13/09/24 LEVOFLOXACIN 17266621948 No Longer Active Carlton Hu MD Acti ve FLUTICASONE PROPIONATE 50 MCG/ACT NASAL SUSPENSION 2 s prays each nostril daily for 2 weeks, then 1 spray each nostril daily. FLUTICASONE PROPIONATE 88352044723 Active Elise Garcia APRN Active ZITHROMAX 250 MG ORAL TABLET 2 po today, then 1 po q days 2-5 20 13/08/10 AZITHROMYCIN 26560270245 No Longer Active Elise Garcia APRN Active XANAX 0.5 MG ORAL TABLET one tablet by mouth daily prn anxiety 2015 ALPRAZOLAM 12229058058 Active Carlton Hu MD Active CYMBALTA 30 MG ORAL CAPSULE DELAYED RELEASE PARTICLES 1 cap by mouth daily for depression DULOXETINE HCL 54523621502 Active Carlton beltrán MD Active CEFDINIR 300 MG ORAL CAPSULE 1 po BID x 10 days CEFDINIR 50312952648 No Longer Active Carlton Hu MD Active ZOCOR 40 MG ORAL TABLET 1 tab by mouth daily SI MVASTATIN 51775281445 No Longer Active Carlton Hu MD Active CYCLOBENZAPRINE HCL 10 MG ORAL TABLET 1 tablet by mouth BID prn had pain CYCLOBENZAPRINE HCL 39930043965 No Longer Active Jayden Hu MD Active LEVOFLOXACIN 500 MG ORAL TABLET 1 tab PO daily x 10 days LEVOFLOXACIN 71607420955 No Longer Active Carlton Hu MD Acti ve PREDNISONE 20 MG ORAL TABLET 3 tab PO qd x 2d, 2 tab P O qd x 2d, 1 tab PO qd x 2d, 1/2 tab PO qd x 2d PREDNISONE 05053076240 No Lo nger Active Carlton uH MD Active FLUTICASONE PROPIONATE 50 MCG/ACT NASAL SUSPENSION 1 t o 2 sprays each nostril daily FLUTICASONE PROPIONATE 33923918751 No Longer Ac tive Blaine HERNANDEZ Active CHERATUSSIN AC 100-10 MG/5ML ORAL SYRUP 1 tsp by mouth every 4 hours as needed for cough GUAIFENESIN-CODEINE 95033841820 No Longe r Active Blaine HERNANDEZ Active PROMETHAZINE-CODEINE 6.25-10 MG/5ML ORAL SYRUP 1 tsp b y mouth every 6 hours if needed for cough PROMETHAZINE-CODEINE 19531030204 No Longer Active Blaine HERNANDEZ Active CHERATUSSIN AC 100-10 MG/5ML ORAL SYRUP 1 tsp by mouth every 4 hours as needed for cough GUAIFENESIN-CODEINE 21630052602 No Longe r Active Blaine HERNANDEZ Active ZITHROMAX Z-REYNA 250 MG ORAL TABLET 2 today, then 1 daily for 4 d ays AZITHROMYCIN 08165240054 No Longer Active Columba Raida Act nael ZITHROMAX 250 MG ORAL TABLET 2 po today, then 1 po q days 2-5 20 14/03/21 AZITHROMYCIN 49474022023 No Longer Active Carlton Hu MD Active ZITHROMAX Z-REYNA 250 MG ORAL TABLET 2 today, then 1 daily for 4 d ays AZITHROMYCIN 33854540079 No Longer Active Columba Raida Act nael AUGMENTIN 875-125 MG ORAL TABLET 1 po BID x 10 days 13/01/20 AMOXICILLIN-POT CLAVULANATE 38741137093 No Longer Active Diya De Guzman APRN Active ZITHROMAX 250 MG ORAL TABLET 2 po today, then 1 po q days 2-5 20 12/08/14 AZITHROMYCIN 85127184907 No Longer Active Carlton Hu MD Active TRAMADOL HCL 50 MG ORAL TABLET 1 po tid with ES Tylenol TRAMADOL HCL 32319998553 Active Carlton Hu MD Active PREMARIN 0.625 MG ORAL TABLET TAKE 1 TAB BY MOUTH DAILY ESTROGENS CONJUGATED 68307242024 No Longer Active Ridge Bess DO A ctive CYMBALTA 30 MG ORAL CAPSULE DELAYED RELEASE PARTICLES 1 cap by mouth daily DULOXETINE HCL 76032893634 No Longer Active Ridge tam DO Active AMOXICILLIN 500 MG ORAL CAPSULE 1 tab by mouth 3 times daily x 10 days AMOXICILLIN 98308200963 No Longer Active Carlton bustamante MD Active AMOXICILLIN 500 MG ORAL CAPSULE 1 tab by mouth 3 times daily x 10 days AMOXICILLIN 14651177371 No Longer Active Carlton bustamante MD Active PROMETHAZINE-CODEINE 6.25-10 MG/5ML ORAL SYRUP 1 tsp b y mouth every 8 hours prn cough PROMETHAZINE-CODEINE 31493625584 No Longer Acti ve Carlton Hu MD Active MEDROL 4 MG ORAL TABLET THERAPY PACK 6 pills x 1 day, then 5 pills x 1 day then 4 pills x 1 day, then 3 pills x 1 day, then 2 pills x 1 day, then 1 pill x 1 day, then stop METHYLPREDNISOLONE 61810729785 No Long er Active Perez Mora MD Active AZITHROMYCIN 250 MG ORAL TABLET 2 po qd x 1 day, then 1 po q d x 4 days AZITHROMYCIN 13872214906 No Longer Active Perez Ambriz MD Active SYMBICORT 160-4.5 MCG/ACT INHALATION AEROSOL 2 puffs bid wit h rinse after BUDESONIDE-FORMOTEROL FUMARATE 00828393346 N o Longer Active Perez Mora MD Active LYRICA 75 MG ORAL CAPSULE TAKE 1 CAPSULE BY MOUTH TWICE DAILY PREGABALIN 19879634295 No Longer Active Carlton Hu MD Acti ve TOPAMAX 25 MG ORAL TABLET 1 qHS x 1 week, then 1 BID x 1 week, then 1 qAM and 2 qHS x 1 week, then 2 BID (migraine prevention) T OPIRAMATE 91198776321 No Longer Active Jerica FUENTES Active TOPAMAX 50 MG ORAL TABLET take 1 tab po BID for migraines. 07/02 TOPIRAMATE 73023692131 No Longer Active Jerica FUENTES Active TOPAMAX 100 MG ORAL TABLET Take 1 tablet po bid TO PIRAMATE 35910403327 Active Carlton Hu MD Active TRIAMCINOLONE ACETONIDE 0.1 % EXTERNAL CREAM apply three roger es daily prn rash TRIAMCINOLONE ACETONIDE 97175577944 No Longer Active Carlton Hu MD Active PAXIL 40 MG ORAL TABLET take 1 tab po qday for depression 0 PAROXETINE HCL 90479855002 Active Carlton Hu MD Active CHERATUSSIN AC 100-10 MG/5ML ORAL SYRUP 5ml po q6hr PRN Cough 20 13/04/14 GUAIFENESIN-CODEINE 62030304569 No Longer Active Carlton Hu MD Active MEDROL 4 MG ORAL TABLET THERAPY PACK 6 tabs on day 1, 5 tabs on day 2, 4 tabs on day 3, 3 tabs on day 4, 2 tabs on day 5, 1 tab on day 6 2013 METHYLPREDNISOLONE 39164224130 No Longer Active Perez Mora MD Active AZITHROMYCIN 250 MG ORAL TABLET 2 po qd x 1 day, then 1 po q d x 4 days AZITHROMYCIN 71217292508 No Longer Active Perez Ambriz MD Active PROPRANOLOL HCL 60 MG ORAL TABLET 1 PO Q D PROPRANOLOL HCL 04450521743 No Longer Active Perez Mora MD Activ e CHERATUSSIN AC 100-10 MG/5ML ORAL SYRUP take one tsp po Q 6h ours prn cough GUAIFENESIN-CODEINE 14377573695 No Longer Active Zia Mora MD Active AUGMENTIN 875-125 MG ORAL TABLET 1 tab by mouth twice daily with food AMOXICILLIN-POT CLAVULANATE 76739473552 No Longer Act nael Perez Mora MD Active CHERATUSSIN AC 100-10 MG/5ML ORAL SYRUP 1 tsp by mouth every 4 hours as needed for cough GUAIFENESIN-CODEINE 97891403165 No Longe r Active Hugo Restrepo MD Active ACETAMINOPHEN-CODEINE #3 300-30 MG ORAL TABLET 1 PO Q 4-6 HRS ME N PAIN ACETAMINOPHEN-CODEINE 96438324546 No Longer Active Hugo Restrepo MD Active LEVAQUIN 500 MG ORAL TABLET take one po QD LEVO FLOXACIN 59026396064 No Longer Active Griffin HERNANDEZ Active PREDNISONE 20 MG ORAL TABLET Take 3 tabs daily for 3 d ays, 2 tabs daily for 3 days, 1 tab daily for 3 days, 1/2 tab daily for 3 days 11/07 PREDNISONE 01399493686 No Longer Active Carlton Hu MD Acti ve AVELOX 400 MG ORAL TABLET 1 tab by mouth daily MOXIFLOXACIN HCL 44930656247 No Longer Active Carlton Hu MD Active CHERATUSSIN AC 100-10 MG/5ML ORAL SYRUP 1 tsp by mouth every 4 hours as needed for cough GUAIFENESIN-CODEINE 51409127929 No Longe r Active Hugo Restrepo MD Active AVELOX 400 MG ORAL TABLET 1 tab by mouth daily MOXIFLOXACIN HCL 94185930859 No Longer Active Marcy De La Rosa MD PhD Active TERBINAFINE HCL 250 MG ORAL TABLET 1 qDay T ERBINAFINE HCL 52647497812 No Longer Active Marcy De La Rosa MD PhD Active CHERATUSSIN AC 100-10 MG/5ML ORAL SYRUP 1 tsp by mouth every 4 hours as needed for cough GUAIFENESIN-CODEINE 04228076720 No Longe r Active Marcy De La Rosa MD PhD Active AVELOX 400 MG ORAL TABLET 1 tab by mouth daily MOXIFLOXACIN HCL 47659089571 No Longer Active Marcy De La Rosa MD PhD Active HYDROCODONE-ACETAMINOPHEN 5-325 MG ORAL TABLET 1 po q 6hr PRN co ugh HYDROCODONE-ACETAMINOPHEN 11444352449 No Longer Active Marcy De La Rosa MD PhD Active PREDNISONE 20 MG ORAL TABLET 2 tabs daily for 3 days, 1 tab daily for 3 days, 1/2 tab daily for 2 days PREDNISONE 78184235700 No Longer Active Carlton Hu MD Active CEFDINIR 300 MG ORAL CAPSULE by mouth twice a day 2011 CEFDINIR 55357635511 No Longer Active Carlton Hu MD Acti ve HYDROCHLOROTHIAZIDE 25 MG ORAL TABLET 1 TAB PO DAILY HYDROCHLOROTHIAZIDE 63667606441 Active Carlton Hu MD A ctive ACETAMINOPHEN-CODEINE #3 300-30 MG ORAL TABLET 1 tablet po q 4-6 hrs prn pain ACETAMINOPHEN-CODEINE 51648291381 No Longer Active Ridge Bess DO Active ZITHROMAX 250 MG ORAL TABLET 2 po today, then 1 po q days 2-5 20 03/07/07 AZITHROMYCIN 12341260068 No Longer Active Carlton Hu MD Active CHERATUSSIN AC 100-10 MG/5ML ORAL SYRUP take 1 tsp po q4-6 h ours prn cough GUAIFENESIN-CODEINE 35299601097 No Longer Active Jayden Hu MD Active ACETAMINOPHEN-CODEINE #3 300-30 MG ORAL TABLET 1 PO Q 4-6 HR PRN PAIN ACETAMINOPHEN-CODEINE 61363482776 No Longer Active Arnol Hu MD Active LORTAB 7.5-500 MG/15ML ORAL ELIXIR 7.5 ml po q 4 hour prn cough HYDROCODONE-ACETAMINOPHEN 19114597729 No Longer Active Carlton Hu MD Active PREDNISONE 20 MG ORAL TABLET 1 po bid 3 days, then 1 po q day 3 days PREDNISONE 71057636552 No Longer Active Carlton Hu MD Active CEFDINIR 300 MG ORAL CAPSULE by mouth twice a day 2011 CEFDINIR 16976503358 No Longer Active Carlton Hu MD Acti ve CEFDINIR 300 MG ORAL CAPSULE by mouth twice a day 2010 CEFDINIR 69968104854 No Longer Active Carlton Hu MD Acti ve CEFDINIR 300 MG ORAL CAPSULE by mouth twice a day 2010 CEFDINIR 28808901819 No Longer Active Carlton Hu MD Acti ve TESSALON PERLES 100 MG ORAL CAPSULE 1 tablet by mouth 3 times daily as needed for cough BENZONATATE 47661587314 No Longer Active Carlton Hu MD Active CEFDINIR 300 MG ORAL CAPSULE by mouth twice a day 2010 CEFDINIR 10687937597 No Longer Active Carlton Hu MD Acti ve ZITHROMAX Z-REYNA 250 MG ORAL TABLET 2 today, then 1 daily for 4 d ays AZITHROMYCIN 08545922676 No Longer Active Hugo Restrepo MD Active TESSALON PERLES 100 MG ORAL CAPSULE 1 tablet by mouth 3 times daily as needed for cough TESSALON PERLES 100 MG ORAL CAPSULE 98372 7 BENZONATATE Inactive PREDNISONE 20 MG ORAL TABLET 1 po bid 3 days, then 1 po q day 3 days PREDNISONE 20 MG ORAL TABLET 103784 PREDNISONE [place] ctive LORTAB 7.5-500 MG/15ML ORAL ELIXIR 7.5 [...] cough CHERATUSSIN AC 100-10 MG/5ML ORAL SYRUP 536784 GUAIFENESIN-CODEINE Inactive ACETAMINOPHEN-CODEINE #3 300-30 MG ORAL TABLET 1 tablet po q 4-6 hrs prn pain ACETAMINOPHEN-CODEINE #3 300-30 MG ORAL TABLET ACETAMINOPHEN-CODEINE Inactive HYDROCODONE-ACETAMINOPHEN 5-325 MG ORAL TABLET 1 po q 6hr PRN co ugh HYDROCODONE-ACETAMINOPHEN 5-325 MG ORAL TABLET 722443 HYDROCODONE-ACETAMINOPHEN Inactive AVELOX 400 MG ORAL TABLET 1 tab by mouth daily AVELOX 400 MG ORAL TABLET 468699 MOXIFLOXACIN HCL Inactive CHERATUSSIN AC 100-10 MG/5ML ORAL SYRUP 1 tsp by mouth every 4 hours as needed for cough CHERATUSSIN AC 100-10 MG/5ML ORAL SYRUP 9 73691 GUAIFENESIN-CODEINE Inactive TERBINAFINE HCL 250 MG ORAL TABLET 1 qDay 07/08 TERBINAFINE HCL 250 MG ORAL TABLET 450684 TERBINAFINE HCL Inactive CHERATUSSIN AC 100-10 MG/5ML ORAL SYRUP 1 tsp by mouth every 4 hours as needed for cough CHERATUSSIN AC 100-10 MG/5ML ORAL SYRUP 9 17970 GUAIFENESIN-CODEINE Inactive ACETAMINOPHEN-CODEINE #3 300-30 MG ORAL TABLET 1 PO Q 4-6 HRS ME N PAIN ACETAMINOPHEN-CODEINE #3 300-30 MG ORAL TABLET ACETAMINOPHEN-CODEINE Inactive CHERATUSSIN AC 100-10 MG/5ML ORAL SYRUP 1 tsp by mouth every 4 hours as needed for cough CHERATUSSIN AC 100-10 MG/5ML ORAL SYRUP 9 44277 GUAIFENESIN-CODEINE Inactive AUGMENTIN 875-125 MG ORAL TABLET 1 tab by mouth twice daily with food AUGMENTIN 875-125 MG ORAL TABLET 989823 AMOXICIL MADELINE-POT CLAVULANATE Inactive CHERATUSSIN AC 100-10 MG/5ML ORAL SYRUP take one tsp po Q 6h ours prn cough CHERATUSSIN AC 100-10 MG/5ML ORAL SYRUP 405008 GUAIFENESIN-CODEINE Inactive PROPRANOLOL HCL 60 MG ORAL TABLET 1 PO Q D PROPRANOLOL HCL 60 MG ORAL TABLET 833897 PROPRANOLOL HCL Inactive TOPAMAX 50 MG ORAL TABLET take 1 tab po BID for migraines. 07/02 TOPAMAX 50 MG ORAL TABLET 544971 TOPIRAMATE Inacti ve TOPAMAX 25 MG ORAL TABLET 1 qHS x 1 week, then 1 BID x 1 week, then 1 qAM and 2 qHS x 1 week, then 2 BID (migraine prevention) TOPAMAX 25 MG ORAL TABLET 200403 TOPIRAMATE Inactive LYRICA 75 MG ORAL CAPSULE TAKE 1 CAPSULE BY MOUTH TWICE DAILY LYRICA 75 MG ORAL CAPSULE PREGABALIN Inactive SYMBICORT 160-4.5 MCG/ACT INHALATION AEROSOL 2 puffs bid wit h rinse after SYMBICORT 160-4.5 MCG/ACT INHALATION AEROSOL BUDESONIDE- FORMOTEROL FUMARATE Inactive PROMETHAZINE-CODEINE 6.25-10 MG/5ML ORAL SYRUP 1 tsp b y mouth every 8 hours prn cough PROMETHAZINE-CODEINE 6.25-10 MG/ 5ML ORAL SYRUP 031072 PROMETHAZINE-CODEINE Inactive CYMBALTA 30 MG ORAL CAPSULE DELAYED RELEASE PARTICLES 1 cap by mouth daily CYMBALTA 30 MG ORAL CAPSULE DELAYED RELE ASE PARTICLES 676198 DULOXETINE HCL Inactive PREMARIN 0.625 MG ORAL TABLET TAKE 1 TAB BY MOUTH DAILY PREMARIN 0.625 MG ORAL TABLET ESTROGENS CONJUGATED Inactive CHERATUSSIN AC 100-10 MG/5ML ORAL SYRUP 1 tsp by mouth every 4 hours as needed for cough CHERATUSSIN AC 100-10 MG/5ML ORAL SYRUP 9 53133 GUAIFENESIN-CODEINE Inactive PROMETHAZINE-CODEINE 6.25-10 MG/5ML ORAL SYRUP 1 tsp b y mouth every 6 hours if needed for cough PROMETHAZINE-CODEINE 6.25-10 MG/5ML ORAL SYRUP 244781 PROMETHAZINE-CODEINE Inactive CHERATUSSIN AC 100-10 MG/5ML ORAL SYRUP 1 tsp by mouth every 4 hours as needed for cough CHERATUSSIN AC 100-10 MG/5ML ORAL SYRUP 9 80493 GUAIFENESIN-CODEINE Inactive FLUTICASONE PROPIONATE 50 MCG/ACT NASAL SUSPENSION 1 t o 2 sprays each nostril daily FLUTICASONE PROPIONATE 50 MCG/AC T NASAL SUSPENSION 1073043 FLUTICASONE PROPIONATE Inactive PREDNISONE 20 MG ORAL TABLET 3 tab PO qd x 2d, 2 tab P O qd x 2d, 1 tab PO qd x 2d, 1/2 tab PO qd x 2d PREDNISONE 20 MG ORAL TAB LET 083895 PREDNISONE Inactive LEVOFLOXACIN 500 MG ORAL TABLET 1 tab PO daily x 10 days LEVOFLOXACIN 500 MG ORAL TABLET 978590 LEVOFLOXACIN Inactive CYCLOBENZAPRINE HCL 10 MG ORAL TABLET 1 tablet by mouth BID prn had pain CYCLOBENZAPRINE HCL 10 MG ORAL TABLET 086969 CYCLOBENZAPRINE HCL Inactive ZOCOR 40 MG ORAL TABLET 1 tab by mouth daily 4 ZOCOR 40 MG ORAL TABLET 074496 SIMVASTATIN Inactive TUSSIONEX PENNKINETIC ER 10-8 MG/5ML [...] FLUTICASONE PROPIO EFE 50 MCG/ACT NASAL SUSPENSION 6353278 FLUTICASONE PROPIONATE Inactive TUSSIONEX PENNKINETIC ER 10-8 [...] three days PREDNISONE 20 MG ORAL TABLET 389208 PREDNIS ONE Inactive PROAIR HFA 108 (90 BASE) MCG/ACT INHALATION AEROSOL SO LUTION 2 puffs four times a day as needed PROAIR HFA 108 (90 B ASE) MCG/ACT INHALATION AEROSOL SOLUTION ALBUTEROL SULFATE Inactive ZITHROMAX Z-REYNA 250 MG ORAL TABLET 2 today, then 1 daily for 4 d ays ZITHROMAX Z-REYNA 250 MG ORAL TABLET 036376 AZITHROMYCIN Inactive CEFDINIR 300 MG ORAL CAPSULE by mouth twice a day 2010 CEFDINIR 300 MG ORAL CAPSULE 251548 CEFDINIR Inactive CEFDINIR 300 MG ORAL CAPSULE [...] 2-5 03/07/07 ZITHROMAX 250 MG ORAL TABLET 992426 AZITHROMYCIN [place] ctive CEFDINIR 300 MG ORAL CAPSULE by mouth twice a day 2011 CEFDINIR 300 MG ORAL CAPSULE 20020704 CEFDINIR Inactive PREDNISONE 20 MG ORAL TABLET 2 tabs daily for 3 days, 1 tab daily for 3 days, 1/2 tab daily for 2 days PREDNISONE 20 MG ORAL T ABLET 396830 PREDNISONE Inactive AVELOX 400 MG ORAL TABLET 1 tab by mouth daily AVELOX 400 MG ORAL TABLET 659736 MOXIFLOXACIN HCL Inactive AVELOX 400 MG ORAL TABLET 1 tab by mouth daily AVELOX 400 MG ORAL TABLET 993886 MOXIFLOXACIN HCL Inactive PREDNISONE 20 MG ORAL TABLET Take 3 tabs daily for 3 d ays, 2 tabs daily for 3 days, 1 tab daily for 3 days, 1/2 tab daily for 3 days 11/07 PREDNISONE 20 MG ORAL TABLET 589509 PREDNISONE Inactive LEVAQUIN 500 MG ORAL TABLET take one po QD LEVAQUIN 500 MG ORAL TABLET 903546 LEVOFLOXACIN Inactive AZITHROMYCIN 250 MG ORAL TABLET 2 po qd x 1 day, then 1 po q d x 4 days AZITHROMYCIN 250 MG ORAL TABLET 631144 AZITHROMY GIOVANNI Inactive MEDROL 4 MG ORAL TABLET THERAPY PACK 6 tabs on day 1, 5 tabs on day 2, 4 tabs on day 3, 3 tabs on day 4, 2 tabs on day 5, 1 tab on day 6 2013 MEDROL 4 MG ORAL TABLET THERAPY PACK 193224 METHYLPREDNISOLONE [place] ctive CHERATUSSIN AC 100-10 MG/5ML ORAL SYRUP 5ml po q6hr PRN Cough 20 13/04/14 CHERATUSSIN AC 100-10 MG/5ML ORAL SYRUP 176274 GUAIFENE SIN-CODEINE Inactive TRIAMCINOLONE ACETONIDE 0.1 % EXTERNAL CREAM apply three roger es daily prn rash TRIAMCINOLONE ACETONIDE 0.1 % EXTERNAL CREAM 101 4314 TRIAMCINOLONE ACETONIDE Inactive AZITHROMYCIN 250 MG ORAL TABLET 2 po qd x 1 day, then 1 po q d x 4 days AZITHROMYCIN 250 MG ORAL TABLET 270186 AZITHROMY GIOVANNI Inactive MEDROL 4 MG ORAL TABLET THERAPY PACK 6 pills x 1 day, then 5 pills x 1 day then 4 pills x 1 day, then 3 pills x 1 day, then 2 pills x 1 day, then 1 pill x 1 day, then stop MEDROL 4 MG ORAL TABLET THERAPY PACK 781440 METHYLPREDNISOLONE Inactive AMOXICILLIN 500 MG ORAL CAPSULE 1 tab by mouth 3 times daily x 10 days AMOXICILLIN 500 MG ORAL CAPSULE 817301 AMOXICILL IN Inactive AMOXICILLIN 500 MG ORAL CAPSULE 1 tab by mouth 3 times daily x 10 days AMOXICILLIN 500 MG ORAL CAPSULE 065337 AMOXICILL IN Inactive ZITHROMAX 250 MG ORAL TABLET 2 po today, then 1 po q days 2-5 20 12/08/14 ZITHROMAX 250 MG ORAL TABLET 074466 AZITHROMYCIN [place] ctive AUGMENTIN 875-125 MG ORAL TABLET 1 po BID x 10 days 20 13/01/20 AUGMENTIN 875-125 MG ORAL TABLET 530108 AMOXICILLIN-POT CLAVULANATE Inactive ZITHROMAX Z-REYNA 250 MG ORAL TABLET 2 today, then 1 daily for 4 d ays ZITHROMAX Z-REYNA 250 MG ORAL TABLET 169118 AZITHROMYCIN Inactive ZITHROMAX 250 MG ORAL TABLET 2 po today, then 1 po q days 2-5 20 14/03/21 ZITHROMAX 250 MG ORAL TABLET 208605 AZITHROMYCIN [place] ctive ZITHROMAX Z-REYNA 250 MG ORAL TABLET 2 today, then 1 daily for 4 d ays ZITHROMAX Z-REYNA 250 MG ORAL TABLET 403469 AZITHROMYCIN Inactive CEFDINIR 300 MG ORAL CAPSULE 1 po BID x 10 days 06/21 CEFDINIR 300 MG ORAL CAPSULE 20020704 CEFDINIR Inactive ZITHROMAX 250 MG ORAL TABLET 2 po today, then 1 po q days 2-5 20 13/08/10 ZITHROMAX 250 MG ORAL TABLET 748121 AZITHROMYCIN [place] ctive LEVAQUIN 500 MG ORAL TABLET 1 tablet by mouth daily 13/09/24 LEVAQUIN 500 MG ORAL TABLET 19971102 LEVOFLOXACIN Inactive SINGULAIR 10 MG ORAL TABLET 1 po qday for allergies 20 14/01/12 SINGULAIR 10 MG ORAL TABLET 20010504 MONTELUKAST SODIUM Inactive AMOXICILLIN 500 MG ORAL CAPSULE 2 po BID x 10 days 201 09/29/08 AMOXICILLIN 500 MG ORAL CAPSULE 394844 AMOXICILLIN Inactive PREDNISONE 20 MG ORAL TABLET 2 tabs daily for 3 days, 1 tab daily for 3 days, 1/2 tab daily for 2 days PREDNISONE 20 MG ORAL T ABLET 637465 PREDNISONE Inactive ZITHROMAX Z-REYNA 250 MG ORAL TABLET 2 today, then 1 daily for 4 d ays ZITHROMAX Z-REYNA 250 MG ORAL TABLET 906687 AZITHROMYCIN Inactive PREDNISONE 20 MG ORAL TABLET 2 tabs daily for 3 days, 1 tab daily for 3 days, 1/2 tab daily for 2 days PREDNISONE 20 MG ORAL T ABLET 059435 PREDNISONE Inactive ZITHROMAX 250 MG ORAL TABLET 2 po today, then 1 po q days 2-5 20 14/09/04 ZITHROMAX 250 MG ORAL TABLET 280988 AZITHROMYCIN Greer ctive AMOXICILLIN 500 MG ORAL CAPSULE 1 cap by mouth three times a day AMOXICILLIN 500 MG ORAL CAPSULE 174183 AMOXICILLIN Inactive TERBINAFINE HCL 250 MG ORAL TABLET 1 qDay for nail fungus 7 TERBINAFINE HCL 250 MG ORAL TABLET 651123 TERBINAFINE HCL Inact nael AUGMENTIN 875-125 MG ORAL TABLET 1 po BID x 10 days 16/03/22 AUGMENTIN 875-125 MG ORAL TABLET 024446 AMOXICILLIN-POT CLAVULANATE Inactive PREDNISONE 20 MG ORAL TABLET 2 po qd x 5 days PREDNISONE 20 MG ORAL TABLET 160420 PREDNISONE Inactive Vital Signs Date Name Value [...] - Chem istry sodium, serum 132 mmol/L 490-907 4630/07/12 potassium, serum 2.7 mmol/L 3.5-5.2 chloride, serum 93 mmol/L 98-107 carbon dioxide, venous blood 30.8 mmol/L 21.0-32 .0 blood glucose 107 mg/dL 65-110 calcium, serum 9.3 mg/dL 8.5-10.1 urea nitrogen, blood 12 mg/dL 7-18 creatinine, serum 1.00 mg/dL 0.60-1.30 sodium, serum 142 mmol/L 198-579 6722/07/17 potassium, serum 4.2 mmol/L 3.5-5.2 chloride, serum 106 mmol/L 98-107 carbon dioxide, venous blood 29.9 mmol/L 21.0-32 .0 blood glucose 108 mg/dL 65-110 calcium, serum 9.1 mg/dL 8.5-10.1 urea nitrogen, blood 11 mg/dL 7-18 creatinine, serum 0.81 mg/dL 0.60-1.30 sodium, serum 139 mmol/L [id number] 6391/03/19 potassium, serum 3.6 mmol/L 3.5-5.2 chloride, serum 100 mmol/L 98-107 carbon dioxide, venous blood 30.3 mmol/L 21.0-32 .0 blood glucose 101 mg/dL 65-110 calcium, serum 9.4 mg/dL 8.5-10.1 urea nitrogen, blood 10 mg/dL 7- creatinine, serum 0.96 mg/dL 0.60-1.30 Lab Report: Rapid Strep - Lab Microbial identification kit, rapid strep method Negative Negative Encounters Code Encounter Date Provider Facility CPT-62431 Level 3 Est. Patient 11:34:49 ELECTRICAL PROSPECTING OBSERVER Perez Mora MD [facility] CPT-97783 Level 4 Est. Patient 09:51:32 ELECTRICAL PROSPECTING OBSERVER Carlton rich MD [facility] CPT-34298 Level 3 Est. Patient 10:26:00 ELECTRICAL PROSPECTING OBSERVER Elise stephenson [facility] CPT-42783 Level 3 Est. Patient 13:35:41 ELECTRICAL PROSPECTING OBSERVER Carlton rich MD [facility] CPT-64328 Level 3 Est. Patient 10:03:52 ELECTRICAL PROSPECTING OBSERVER Carlton rich MD [facility] CPT-88099 Level 3 Est. Patient 12:17:50 CDT Hugo Restrepo MD [facility] CPT-85298 Level 3 Est. Patient 13:42:38 CDT Elise stephenson [facility] CPT-86617 Level 3 Est. Patient 13:23:51 CDT Diya cobian [facility]-51034 Level 3 Est. Patient 14:22:19 ELECTRICAL PROSPECTING OBSERVER Diya cobian [facility] CPT-79388 Level 3 Est. Patient 10:11:46 CDT Carlton rich MD [facility] CPT-27131 Level 3 Est. Patient 17:29:43 CDT Elise Are ll [employer] [facility] CPT-39167 Level 3 Est. Patient 11:58:06 CDT Elise Are ll [employer]CR[employer] [facility] CPT-82289 Level 4 Est. Patient 14:36:51 CDT Carlton rich MD [facility] CPT-76183 Level 3 Est. Patient 18:16:00 ELECTRICAL PROSPECTING OBSERVER Blaine Freeman [facility] CPT-06838 Level 3 Est. Patient 09:45:49 ELECTRICAL PROSPECTING OBSERVER Carlton rich MD [facility] CPT-34666 Level 3 Est. Patient 13:19:20 CDT Carlton rich MD [facility] CPT-94282 Level 3 Est. Patient 13:06:43 CDT Ridge tam DO [facility] CPT-94446 Level 3 Est. Patient 10:03:07 CDT Perez Mora MD [facility] CPT-37852 Level 3 Est. Patient 19:50:35 ELECTRICAL PROSPECTING OBSERVER Carlton rich MD [facility] CPT-17988 Level 4 Est. Patient 18:05:01 ELECTRICAL PROSPECTING OBSERVER Carlton rich MD [facility] CPT-21729 Level 3 Est. Patient 10:45:55 ELECTRICAL PROSPECTING OBSERVER Hugo Restrepo MD [facility] CPT-61090 Level 3 Est. Patient 14:12:49 CDT Griffin lincoln [facility] CPT-92255 Level 3 Est. Patient 17:37:24 CDT Carlton rich MD [facility] CPT-96874 Level 3 Est. Patient 16:51:54 CDT Carlton rich MD [facility] CPT-90451 Level 3 Est. Patient 12:18:11 CDT Hugo Restrepo MD [facility] CPT-14290 Level 3 Est. Patient 11:30:25 CDT Marcy crisostomo MD PhD [facility] CPT-18700 Level 3 Est. Patient 12:00:47 ELECTRICAL PROSPECTING OBSERVER Carlton rich MD [facility] CPT-65208 Level 3 Est. Patient 16:31:06 ELECTRICAL PROSPECTING OBSERVER Carlton rich MD [facility] CPT-85987 Level 3 Est. Patient 16:23:24 ELECTRICAL PROSPECTING OBSERVER Ridge tam [facility] CPT-31986 Level 3 Est. Patient 12:34:12 CDT aCrlton rich MD [facility] CPT-76320 Level 2 Est. Patient 15:43:33 CDT Robi armstrong MD [facility] CPT-44603 Level 4 Est. Patient 14:04:44 CDT Carlton rich MD [facility] CPT-22549 Level 3 Est. Patient 05:47:59 CDT Ridge tam [facility] CPT-85428 Level 3 Est. Patient 13:12:53 ELECTRICAL PROSPECTING OBSERVER Carlton rich MD [facility] CPT-87499 Level 3 Est. Patient 14:26:53 CDT Hugo [...] CPT-J1100 Decadron 6mg (Dexamethasone) 14:32:13 CDT 2 CPT-33256 Hip bilat min 2V w AP pelvis 13:16:20 CDT 2 CPT-79762 Pelvis only 13:07:33 CDT CPT-62866 Spec Collection and Handling Fee 11:25:12 C DT CPT-78860 Fluzone Quadrivalent Intramuscular Suspe nsion 0.5 ML 14:31:55 CDT CPT-35388 Abx/Therapy Injection 13:28:47 ELECTRICAL PROSPECTING OBSERVER CPT-J2930 Solu Medrol 125 mg (Methyl Prednisolone Sodium Succinate) 12:00:47 ELECTRICAL PROSPECTING OBSERVER CPT-53072 Venipuncture Draw Fee 11:33:31 CDT CPT-67491 EKG Trac and Interp 11:21:09 CDT CPT-20762 Chest 2V Frontal and Lat 11:21:09 CDT 12/15 CPT-24839 Venipuncture Draw Fee 08:02:34 CDT CPT-22361 Chest 2V Frontal and Lat 05:47:59 CDT 06/05
--- OUTSIDE RECORDS SUMMARY | 2019-10-08 10:10 | XMS REPORT | Clinical Summary ---
[...] sites Sinusitis 473.9 Active Diya De Guzman [employer] Unspecified sinusitis (chronic) Bronchitis-Acute 466.0 Active Carlton Hu MD Acute bronchitis URI - acute 465.9 Active Elise Whitmore [employer] Acute upper respiratory infections of unspecified site [...] spray each nostril daily. FLUTICASONE PRO PIONATE 02843293648 Active Elise Whitmore APRN Active ZITHROMAX 250 MG TAB 2 po today, then 1 po q days 2-5 AZITHROMYCIN 97488517802 No Longer Active Elise Whitmore APRN Acti ve XANAX 0.5 MG TABS one tablet by mouth daily prn anxiety ALPRAZOLAM 49872863640 Active Carlton Hu MD Active CYMBALTA 30 MG CPEP 1 cap by mouth daily for depression DULOXETINE HCL 61921611707 Active Carlton Hu MD Active CEFDINIR 300 MG CAPS 1 po BID x 10 days CEFDINI R 78640488138 No Longer Active Carlton Hu MD Active ZOCOR 40 MG TAB 1 tab by mouth daily SIMVASTATI N 37188083442 No Longer Active Carlton Hu MD Active CYCLOBENZAPRINE HCL 10 MG TABS 1 tablet by mouth BID prn had cherelle n CYCLOBENZAPRINE HCL 40848890245 No Longer Active Carlton Hu MD Active LEVOFLOXACIN 500 MG ORAL TABS 1 tab PO daily x 10 days LEVOFLOXACIN 29398414186 No Longer Active Carlton Hu MD Acti ve PREDNISONE 20 MG ORAL TABS 3 tab PO qd x 2d, 2 tab PO qd x 2d, 1 tab PO qd x 2d, 1/2 tab PO qd x 2d PREDNISONE 06157126450 No Longer Active Carlton Hu MD Active TUSSIONEX PENNKINETIC ER 10-8 MG/5ML ORAL LQCR 5 mL PO q 12 hrs PRN cough HYDROCOD POLST-CHLORPHEN POLST 14724945543 Active Elise Whitmore APRN Active FLUTICASONE PROPIONATE 50 MCG/ACT SUSP 1 to 2 sprays each no stril daily FLUTICASONE PROPIONATE 12894528927 No Longer Active T jaz HERNANDEZ Active CHERATUSSIN AC 100-10 MG/5ML SYRP 1 tsp by mouth every 4 hours as needed for cough GUAIFENESIN-CODEINE 38745348117 No Longer Activ e Blaine Freeman PA Active PROMETHAZINE-CODEINE 6.25-10 MG/5ML SYRP 1 tsp by mout h every 6 hours if needed for cough PROMETHAZINE-CODEINE 30253845236 No Long er Active Blaine HERNANDEZ Active CHERATUSSIN AC 100-10 MG/5ML SYRP 1 tsp by mouth every 4 hours as needed for cough GUAIFENESIN-CODEINE 95629618544 No Longer Activ e Blaine HERNANDEZ Active ZITHROMAX Z-REYNA 250 MG TABS 2 today, then 1 daily for 4 days 201 08/30/03 AZITHROMYCIN 16153050701 No Longer Active Columba Raida Act nael ZITHROMAX 250 MG TAB 2 po today, then 1 po q days 2-5 AZITHROMYCIN 54173263630 No Longer Active Carlton Hu MD Acti ve ZITHROMAX Z-REYNA 250 MG TABS 2 today, then 1 daily for 4 days 201 08/07/20 AZITHROMYCIN 32107533976 No Longer Active Columba Raida Act nael AUGMENTIN 875-125 MG TAB 1 po BID x 10 days AMOXICILLIN- POT CLAVULANATE 93100006689 No Longer Active Diya De Guzman APRN Active ZITHROMAX 250 MG TAB 2 po today, then 1 po q days 2-5 AZITHROMYCIN 53066465520 No Longer Active Carlton Hu MD Acti ve TRAMADOL HCL 50 MG TABS 1 po tid with ES Tylenol TRAMADOL HCL 72536059544 Active Carlton Hu MD Active PREMARIN 0.625 MG TABS TAKE 1 TAB BY MOUTH DAILY 07/25 ESTROGENS CONJUGATED 81582732272 No Longer Active Ridge Bess DO Active CYMBALTA 30 MG CPEP 1 cap by mouth daily DULOXE SNEHA HCL 05797785891 No Longer Active Ridge Bess DO Active AMOXICILLIN 500 MG CAP 1 tab by mouth 3 times daily x 10 days 20 14/04/28 AMOXICILLIN 89503713031 No Longer Active Carlton Hu MD Active AMOXICILLIN 500 MG CAP 1 tab by mouth 3 times daily x 10 days 20 13/03/08 AMOXICILLIN 13260934174 No Longer Active Carlton Hu MD Active PROMETHAZINE-CODEINE 6.25-10 MG/5ML SYRP 1 tsp by mouth ever y 8 hours prn cough PROMETHAZINE-CODEINE 35794946666 No Longer Active Robert Hu MD Active MEDROL (REYNA) 4 MG TABS 6 pills x 1 day, then 5 pill s x 1 day then 4 pills x 1 day, then 3 pills x 1 day, then 2 pills x 1 day, then 1 pill x 1 day, then stop METHYLPREDNISOLONE 10378733698 No Longer Active Parris Mora MD Active AZITHROMYCIN 250 MG TABS 2 po qd x 1 day, then 1 po qd x 4 days AZITHROMYCIN 11055278563 No Longer Active Perez Mora MD Active SYMBICORT 160-4.5 MCG/ACT AERO 2 puffs bid with rinse after 2011 BUDESONIDE-FORMOTEROL FUMARATE 83110805630 No Longer Active Perez Mora MD Active LYRICA 75 MG CAPS TAKE 1 CAPSULE BY MOUTH TWICE DAILY 2013 PREGABALIN 09372929969 No Longer Active Carlton Hu MD Active LYRICA 100 MG CAPS Take 1 tab po BID for fibromyalgia PREGABALIN 88829305335 Active Elise Whitmore APRN Active TOPAMAX 25 MG TABS 1 qHS x 1 week, then 1 BID x 1 week, then 1 qAM and 2 qHS x 1 week, then 2 BID (migraine prevention) TOPIRAMAT E 41788378106 No Longer Active Jerica Osei RMA Active TOPAMAX 50 MG TABS take 1 tab po BID for migraines. 12/07/10 TOPIRAMATE 95690359110 No Longer Active Jerica Osei RMA Ac tive TOPAMAX 100 MG TABS Take 1 tablet po bid TOPIRAMATE 4999 9818601 Active Carlton Hu MD Active TRIAMCINOLONE ACETONIDE 0.1 % CREA apply three times daily prn r beatrice TRIAMCINOLONE ACETONIDE 53601184896 No Longer Active Carlton Hu MD Active PAXIL 40 MG TAB take 1 tab po qday for depression PAROXETINE HCL 88690930785 Active Elise Whitmore [employer] Active CHERATUSSIN AC 100-10 MG/5ML SYRP 5ml po q6hr PRN Cough GUAIFENESIN-CODEINE 37968405752 No Longer Active Carlton Hu MD Active MEDROL (REYNA) 4 MG TABS 6 tabs on day 1, 5 tabs on d ay 2, 4 tabs on day 3, 3 tabs on day 4, 2 tabs on day 5, 1 tab on day 6 METHYLPREDNISOLONE 37327523053 No Longer Active Perez Mora MD Active AZITHROMYCIN 250 MG TABS 2 po qd x 1 day, then 1 po qd x 4 days AZITHROMYCIN 80404866174 No Longer Active Perez Mroa MD Active PROPRANOLOL HCL 60 MG TABS 1 PO Q D PROPRANOL OL HCL 38732422425 No Longer Active Perez Mora MD Active CHERATUSSIN AC 100-10 MG/5ML SYRP take one tsp po Q 6hours prn c ough GUAIFENESIN-CODEINE 92793596945 No Longer Active Perez Means Active AUGMENTIN 875-125 MG TAB 1 tab by mouth twice daily with food 20 12/03/31 AMOXICILLIN-POT CLAVULANATE 83477741200 No Longer Active Chanel Mora MD Active CHERATUSSIN AC 100-10 MG/5ML SYRP 1 tsp by mouth every 4 hours as needed for cough GUAIFENESIN-CODEINE 50275524149 No Longer Activ e Hugo Restrepo MD Active ACETAMINOPHEN-CODEINE #3 300-30 MG TABS 1 PO Q 4-6 HRS PRN PAIN ACETAMINOPHEN-CODEINE 58679572421 No Longer Active Hugo Restrepo MD Active LEVAQUIN 500 MG TABS take one po QD LEVOFLOXACI N 42930169846 No Longer Active Griffin HERNANDEZ Active PREDNISONE 20 MG TAB Take 3 tabs daily for 3 days , 2 tabs daily for 3 days, 1 tab daily for 3 days, 1/2 tab daily for 3 days P REDNISONE 41564476346 No Longer Active Carlton Hu MD Active AVELOX 400 MG TABS 1 tab by mouth daily MOXIFLO XACIN HCL 51554439559 No Longer Active Carlton Hu MD Active CHERATUSSIN AC 100-10 MG/5ML SYRP 1 tsp by mouth every 4 hours as needed for cough GUAIFENESIN-CODEINE 58086197554 No Longer Activ e Hugo Restrepo MD Active AVELOX 400 MG TABS 1 tab by mouth daily MOXIFLO XACIN HCL 82018261850 No Longer Active Marcy De La Rosa MD PhD Active TERBINAFINE HCL 250 MG TABS 1 qDay TERBINAF INE HCL 02277265982 No Longer Active Marcy De La Rosa MD PhD Active CHERATUSSIN AC 100-10 MG/5ML SYRP 1 tsp by mouth every 4 hours as needed for cough GUAIFENESIN-CODEINE 13451060251 No Longer Activ e Marcy De La Rosa MD PhD Active AVELOX 400 MG TABS 1 tab by mouth daily MOXIFLO XACIN HCL 66608125874 No Longer Active Marcy De La Rosa MD PhD Active HYDROCODONE-ACETAMINOPHEN 5-325 MG TABS 1 po q 6hr PRN cough 201 05/09/16 HYDROCODONE-ACETAMINOPHEN 93826955611 No Longer Active Marcy De La Rosa MD PhD Active PREDNISONE 20 MG TAB 2 tabs daily for 3 days, 1 t ab daily for 3 days, 1/2 tab daily for 2 days PREDNISONE 49812303025 No Longer Active Carlton Hu MD Active CEFDINIR 300 MG CAPS by mouth twice a day CEFDI ODILIA 22285851897 No Longer Active Carlton Hu MD Active HYDROCHLOROTHIAZIDE 25 MG TABS 1 TAB PO DAILY H YDROCHLOROTHIAZIDE 62574055258 Active Carlton Hu MD Active ACETAMINOPHEN-CODEINE #3 300-30 MG TABS 1 tablet po q 4-6hrs prn pain ACETAMINOPHEN-CODEINE 11874737230 No Longer Active Ridge Bess DO Active ZITHROMAX 250 MG TAB 2 po today, then 1 po q days 2-5 AZITHROMYCIN 61232480755 No Longer Active Carlton Hu MD Acti ve CHERATUSSIN AC 100-10 MG/5ML SYRP take 1 tsp po q4-6 hours prn c ough GUAIFENESIN-CODEINE 16811797875 No Longer Active Carlton Hu MD Active ACETAMINOPHEN-CODEINE #3 300-30 MG TABS 1 PO Q 4-6 HR PRN PAIN 2 ACETAMINOPHEN-CODEINE 33697594439 No Longer Active Carlton rich MD Active LORTAB 7.5-500 MG/15ML ELIX 7.5 ml po q 4 hour prn cough HYDROCODONE-ACETAMINOPHEN 23149380694 No Longer Active Carlton Hu MD Active PREDNISONE 20 MG TAB 1 po bid 3 days, then 1 po q day 3 days 201 05/03/07 PREDNISONE 27741064608 No Longer Active Carlton Hu MD Active ELMIRON 100 MG CAPS 2 tablets in the am and 1 tablet at hs PENTOSAN POLYSULFATE SODIUM 99972021275 Active Carlton Hu MD Ac tive CEFDINIR 300 MG CAPS by mouth twice a day CEFDI ODILIA 28642581673 No Longer Active Carlton Hu MD Active CEFDINIR 300 MG CAPS by mouth twice a day CEFDI ODILIA 65029523582 No Longer Active Carlton Hu MD Active CEFDINIR 300 MG CAPS by mouth twice a day CEFDI ODILIA 31232371539 No Longer Active Carlton Hu MD Active TESSALON PERLES 100 MG CAP 1 tablet by mouth 3 times daily a s needed for cough BENZONATATE 90971338650 No Longer Active Carlton bustamante MD Active CEFDINIR 300 MG CAPS by mouth twice a day CEFDI ODILIA 69588538353 No Longer Active Carlton Hu MD Active ZITHROMAX Z-REYNA 250 MG TABS 2 today, then 1 daily for 4 days 201 04/09/17 AZITHROMYCIN 40109662446 No Longer Active Hugo Restrepo MD Active TESSALON PERLES 100 MG CAP 1 tablet by mouth 3 times daily a s needed for cough TESSALON PERLES 100 MG CAP 504819 BENZONATATE I nactive PREDNISONE 20 MG TAB 1 po bid 3 days, then 1 po q day 3 days 201 05/03/07 PREDNISONE 20 MG TAB 230592 PREDNISONE Inactive LORTAB 7.5-500 MG/15ML ELIX 7.5 ml po q 4 hour prn cough LORTAB 7.5-500 MG/15ML ELIX HYDROCODONE-ACETAMINOPHEN Inacti ve ACETAMINOPHEN-CODEINE #3 300-30 MG TABS 1 PO Q 4-6 HR PRN PAIN 2 ACETAMINOPHEN-CODEINE #3 300-30 MG TABS 395753 ACETAMIN OPHEN-CODEINE Inactive CHERATUSSIN AC 100-10 MG/5ML SYRP take 1 tsp po q4-6 hours prn c ough CHERATUSSIN AC 100-10 MG/5ML SYRP 199338 GUAIFENESIN-CO DEINE Inactive ACETAMINOPHEN-CODEINE #3 300-30 MG TABS 1 tablet po q 4-6hrs prn pain ACETAMINOPHEN-CODEINE #3 300-30 MG TABS 401211 ACETAMIN OPHEN-CODEINE Inactive HYDROCODONE-ACETAMINOPHEN 5-325 MG TABS 1 po q 6hr PRN cough 201 05/09/16 HYDROCODONE-ACETAMINOPHEN 5-325 MG TABS 723856 HYDROCODONE-ACETAMINOPHEN Inactive AVELOX 400 MG TABS 1 tab by mouth daily A VELOX 400 MG TABS 679714 MOXIFLOXACIN HCL Inactive CHERATUSSIN AC 100-10 MG/5ML SYRP 1 tsp by mouth every 4 hours as needed for cough CHERATUSSIN AC 100-10 MG/5ML SYRP 091225 GUAIFENESIN-CODEINE Inactive TERBINAFINE HCL 250 MG TABS 1 qDay TERBINAFINE HCL 250 MG TABS 673756 TERBINAFINE HCL Inactive CHERATUSSIN AC 100-10 MG/5ML SYRP 1 tsp by mouth every 4 hours as needed for cough CHERATUSSIN AC 100-10 MG/5ML SYRP 520350 GUAIFENESIN-CODEINE Inactive ACETAMINOPHEN-CODEINE #3 300-30 MG TABS 1 PO Q 4-6 HRS PRN PAIN ACETAMINOPHEN-CODEINE #3 300-30 MG TABS 451652 ACETAMINOPHEN-CODEIN E Inactive CHERATUSSIN AC 100-10 MG/5ML SYRP 1 tsp by mouth every 4 hours as needed for cough CHERATUSSIN AC 100-10 MG/5ML SYRP 662693 GUAIFENESIN-CODEINE Inactive AUGMENTIN 875-125 MG TAB 1 tab by mouth twice daily with food 20 12/03/31 AUGMENTIN 875-125 MG TAB 443703 AMOXICILLIN-POT CLAVULA EFE Inactive CHERATUSSIN AC 100-10 MG/5ML SYRP take one tsp po Q 6hours prn c ough CHERATUSSIN AC 100-10 MG/5ML SYRP 837284 GUAIFENESIN-CO DEINE Inactive PROPRANOLOL HCL 60 MG TABS 1 PO Q D P ROPRANOLOL HCL 60 MG TABS 796695 PROPRANOLOL HCL Inactive TOPAMAX 50 MG TABS take 1 tab po BID for migraines. 12/07/10 TOPAMAX 50 MG TABS 109736 TOPIRAMATE Inactive TOPAMAX 25 MG TABS 1 qHS x 1 week, then 1 BID x 1 week, then 1 qAM and 2 qHS x 1 week, then 2 BID (migraine prevention) TOPAMAX 2 5 MG TABS 450996 TOPIRAMATE Inactive LYRICA 75 MG CAPS TAKE 1 CAPSULE BY MOUTH TWICE DAILY LYRICA 75 MG CAPS PREGABALIN Inactive SYMBICORT 160-4.5 MCG/ACT AERO 2 puffs bid with rinse after 2011 SYMBICORT 160-4.5 MCG/ACT AERO BUDESONIDE-FORMOT SÁNCHEZ FUMARATE Inactive PROMETHAZINE-CODEINE 6.25-10 MG/5ML SYRP 1 tsp by mouth ever y 8 hours prn cough PROMETHAZINE-CODEINE 6.25-10 MG/5ML SYRP 046342 PROMETHAZINE-CODEINE Inactive CYMBALTA 30 MG CPEP 1 cap by mouth daily CYMBALTA 30 MG CPEP 265528 DULOXETINE HCL Inactive PREMARIN 0.625 MG TABS TAKE 1 TAB BY MOUTH DAILY 07/25 PREMARIN 0.625 MG TABS ESTROGENS CONJUGATED Inactive CHERATUSSIN AC 100-10 MG/5ML SYRP 1 tsp by mouth every 4 hours as needed for cough CHERATUSSIN AC 100-10 MG/5ML SYRP 509522 GUAIFENESIN-CODEINE Inactive PROMETHAZINE-CODEINE 6.25-10 MG/5ML SYRP 1 tsp by mout h every 6 hours if needed for cough PROMETHAZINE-CODEINE 6.25-10 MG/5ML SYRP 499539 PROMETHAZINE-CODEINE Inactive CHERATUSSIN AC 100-10 MG/5ML SYRP 1 tsp by mouth every 4 hours as needed for cough CHERATUSSIN AC 100-10 MG/5ML SYRP 228262 GUAIFENESIN-CODEINE Inactive FLUTICASONE PROPIONATE 50 MCG/ACT SUSP 1 to 2 sprays each no stril daily FLUTICASONE PROPIONATE 50 MCG/ACT SUSP 391376 FLUTICASONE PROPIONATE Inactive PREDNISONE 20 MG ORAL TABS 3 tab PO qd x 2d, 2 tab PO qd x 2d, 1 tab PO qd x 2d, 1/2 tab PO qd x 2d PREDNISONE 20 MG ORAL TABS 971747 PREDNISONE Inactive LEVOFLOXACIN 500 MG ORAL TABS 1 tab PO daily x 10 days LEVOFLOXACIN 500 MG ORAL TABS 202670 LEVOFLOXACIN Inactive CYCLOBENZAPRINE HCL 10 MG TABS 1 tablet by mouth BID prn had cherelle n CYCLOBENZAPRINE HCL 10 MG TABS 313514 CYCLOBENZAPRINE H CL Inactive ZOCOR 40 MG TAB 1 tab by mouth daily ZOCOR 40 M G TAB 486900 SIMVASTATIN Inactive ZITHROMAX Z-REYNA 250 MG TABS 2 today, then 1 daily for 4 days 201 04/09/17 ZITHROMAX Z-REYNA 250 MG TABS 8716179 AZITHROMYCIN Inac tive CEFDINIR 300 MG CAPS [...] q days 2-5 ZITHROMAX 250 MG TAB 3089414 AZITHROMYCIN Inactive CEFDINIR 300 MG CAPS by mouth twice a day CEFDINIR 300 MG CAPS 962514 CEFDINIR Inactive PREDNISONE 20 MG TAB 2 tabs daily for 3 days, 1 t ab daily for 3 days, 1/2 tab daily for 2 days PREDNISONE 20 MG TAB 405760 PREDNISON E Inactive AVELOX 400 MG TABS 1 tab by mouth daily A VELOX 400 MG TABS 624969 MOXIFLOXACIN HCL Inactive AVELOX 400 MG TABS 1 tab by mouth daily A VELOX 400 MG TABS 955177 MOXIFLOXACIN HCL Inactive PREDNISONE 20 MG TAB Take 3 tabs daily for 3 days , 2 tabs daily for 3 days, 1 tab daily for 3 days, 1/2 tab daily for 3 days PREDNISONE 20 MG TAB 102008 PREDNISONE Inactive LEVAQUIN 500 MG TABS take one po QD LEVAQUIN 50 0 MG TABS 687150 LEVOFLOXACIN Inactive AZITHROMYCIN 250 MG TABS 2 po qd x 1 day, then 1 po qd x 4 days AZITHROMYCIN 250 MG TABS 2373589 AZITHROMYCIN Inactiv e MEDROL (REYNA) 4 MG TABS 6 tabs on day 1, 5 tabs on d ay 2, 4 tabs on day 3, 3 tabs on day 4, 2 tabs on day 5, 1 tab on day 6 MEDROL (REYNA) 4 MG TABS 163687 METHYLPREDNISOLONE Inactive CHERATUSSIN AC 100-10 MG/5ML SYRP 5ml po q6hr PRN Cough CHERATUSSIN AC 100-10 MG/5ML SYRP 599422 GUAIFENESIN-CODEINE Inacti ve TRIAMCINOLONE ACETONIDE 0.1 % CREA apply three times daily prn r beatrice TRIAMCINOLONE ACETONIDE 0.1 % CREA 2003208 TRIAMCINOLONE ACETONIDE Inactive AZITHROMYCIN 250 MG TABS 2 po qd x 1 day, then 1 po qd x 4 days AZITHROMYCIN 250 MG TABS 9536837 AZITHROMYCIN Inactiv e MEDROL (REYNA) 4 MG TABS 6 pills x 1 day, then 5 pill s x 1 day then 4 pills x 1 day, then 3 pills x 1 day, then 2 pills x 1 day, then 1 pill x 1 day, then stop MEDROL (REYNA) 4 MG TABS 264779 METHYLPREDNISOLONE Inactive AMOXICILLIN 500 MG CAP 1 tab by mouth 3 times daily x 10 days 20 13/03/08 AMOXICILLIN 500 MG CAP 048108 AMOXICILLIN Inactive AMOXICILLIN 500 MG CAP 1 tab by mouth 3 times daily x 10 days 20 14/04/28 AMOXICILLIN 500 MG CAP 332591 AMOXICILLIN Inactive ZITHROMAX 250 MG TAB 2 po today, then 1 po q days 2-5 ZITHROMAX 250 MG TAB 5111944 AZITHROMYCIN Inactive AUGMENTIN 875-125 MG TAB 1 po BID x 10 days AUGMENTIN 875- 125 MG TAB 801923 AMOXICILLIN-POT CLAVULANATE Inactive ZITHROMAX Z-REYNA 250 MG TABS 2 today, then 1 daily for 4 days 201 08/07/20 ZITHROMAX Z-REYNA 250 MG TABS 7822677 AZITHROMYCIN Inac tive ZITHROMAX 250 MG TAB 2 po today, then 1 po q days 2-5 ZITHROMAX 250 MG TAB 2682801 AZITHROMYCIN Inactive ZITHROMAX Z-REYNA 250 MG TABS 2 today, then 1 daily for 4 days 201 08/30/03 ZITHROMAX Z-REYNA 250 MG TABS 6291900 AZITHROMYCIN Inac tive CEFDINIR 300 MG CAPS 1 po BID x 10 days C EFDINIR 300 MG CAPS 194490 CEFDINIR Inactive ZITHROMAX 250 MG TAB 2 po today, then 1 po q days 2-5 ZITHROMAX 250 MG TAB 1704708 AZITHROMYCIN Inactive Vital Signs Date Name Value [...] Measured Encounters Code Encounter Date Provider Facility CPT-05924 Level 3 Est. Patient 11:58:06 CDT Elise Cesar hcelly RICEN [facility] CPT-19029 Level 4 Est. Patient 14:36:51 CDT Carlton rich MD [facility]-30443 Level 3 Est. Patient 18:16:00 CERTIFIED NURSES' AIDE [facility] CPT-08778 Level 3 Est. Patient 09:45:49 CERTIFIED NURSES' AIDE Carlton rich MD [facility]-49280 Level 3 Est. Patient 13:19:20 CDT Carlton rich MD [facility] CPT-78657 Level 3 Est. Patient 13:06:43 CDT Ridge tam DO [facility] CPT-48771 Level 3 Est. Patient 10:03:07 CDT Perez Mora MD [facility] CPT-11940 Level 3 Est. Patient 19:50:35 CERTIFIED NURSES' AIDE Carlton rich MD [facility] CPT-22000 Level 4 Est. Patient 18:05:01 CERTIFIED NURSES' AIDE Carlton rich MD [facility] CPT-75012 Level 3 Est. Patient 10:45:55 CERTIFIED NURSES' AIDE Hugo Restrepo MD [facility] CPT-32084 Level 3 Est. Patient 14:12:49 CDT Griffin lincoln [facility]-46688 Level 3 Est. Patient 17:37:24 CDT Carlton rich MD [facility] CPT-04057 Level 3 Est. Patient 16:51:54 CDT Carlton rich MD [facility] CPT-44281 Level 3 Est. Patient 12:18:11 CDT Hugo Restrepo MD [facility] CPT-15708 Level 3 Est. Patient 11:30:25 CDT Marcy crisostomo MD PhD [facility] CPT-58636 Level 3 Est. Patient 12:00:47 CERTIFIED NURSES' AIDE Carlton rich MD [facility] CPT-07974 Level 3 Est. Patient 16:31:06 CERTIFIED NURSES' AIDE Carlton rich MD [facility] CPT-46950 Level 3 Est. Patient 16:23:24 CERTIFIED NURSES' AIDE Ridge tam [facility] CPT-05893 Level 3 Est. Patient 12:34:12 CDT Carlton rich MD [facility] CPT-32913 Level 2 Est. Patient 15:43:33 CDT Robi armstrong MD [facility] CPT-23408 Level 4 Est. Patient 14:04:44 CDT Carlton rich MD [facility] CPT-03023 Level 3 Est. Patient 05:47:59 CDT Ridge tam [facility] CPT-86915 Level 3 Est. Patient 13:12:53 CERTIFIED NURSES' AIDE Carlton rich MD [facility] CPT-97396 Level 3 Est. Patient 14:26:53 CDT Hugo Restrepo MD [facility] Procedures Code Procedure Name Date Entry Date Standard Desc ription CPT-J0696 Rocephin 1gm Inj Solr 14:32:13 CDT CPT-J1020 Depo Medrol 60 mg (Methyl Prednisolone A cetate) 14:32:13 CDT CPT-J1100 Decadron 6mg (Dexamethasone) 14:32:13 CDT 2 CPT-36482 Hip bilat min 2V w AP pelvis 13:16:20 CDT 2 CPT-86992 Pelvis only 13:07:33 CDT CPT-11432 Spec Collection and Handling Fee 11:25:12 C DT CPT-82478 Fluzone Quadrivalent Intramuscular Suspe nsion 0.5 ML 14:31:55 CDT CPT-18823 Abx/Therapy Injection 13:28:47 CERTIFIED NURSES' AIDE CPT-J2930 Solu Medrol 125 mg (Methyl Prednisolone Sodium Succinate) 12:00:47 CERTIFIED NURSES' AIDE CPT-47406 Venipuncture Draw Fee 11:33:31 CDT CPT-13130 EKG Trac and Interp 11:21:09 CDT CPT-23819 Chest 2V Frontal and Lat 11:21:09 CDT 12/15 CPT-35080 Venipuncture Draw Fee 08:02:34 CDT CPT-28444 Chest 2V Frontal and Lat 05:47:59 CDT 06/05
--- OUTSIDE RECORDS SUMMARY | 2019-10-08 10:11 | XMS REPORT | Clinical Summary ---
Author Author Caitlin, Juliana Martinez Organization [employer] [facility] Address Unknown Phone Unavailable Allergies, [...] Sinusitis 473.9 Active Diya De Guzman MANAGER FIRE Unspecified sinusitis (chronic) Bronchitis-Acute 466.0 Active Carlton Hu MD Acute bronchitis URI - acute 465.9 Active Elise Whitmore MANAGER FIRE Acute upper respiratory infections of unspecified site Pharyngitis acute 462 Active Elise Whitmore A PRN Acute pharyngitis Rhinitis, acute 460 Active Elise Whitmore APR N Acute nasopharyngitis [common cold] Sinusitis 473.9 Active Diya De Guzman MANAGER FIRE Unspecified sinusitis (chronic) BRONCHITIS ICD-490 Inactive Hugo [...] bid with ri nse after MOMETASONE FUROATE 77644788712 Active Elise Whitmore APRN Active FLUTICASONE PROPIONATE 50 MCG/ACT SUSP 2 sprays each n ostril daily until bottle is empty FLUTICASONE PROPIONATE 62987042267 Active Lyndsay Whitmore APRN Active ZITHROMAX Z-REYNA 250 MG TABS 2 today, then 1 daily for 4 days 201 09/29/14 AZITHROMYCIN 34088605649 No Longer Active Elise Whitmore APRN Active TUSSIONEX PENNKINETIC ER 10-8 MG/5ML LQCR 5ml po q12hr PRN Cough HYDROCOD POLST-CHLORPHEN POLST 56907424881 No Longer Active Elise Whitmore APRN Active MUCINEX D 60-600 MG [id number] 1 tab po q am PSEUDOEPHEDRINE-GUAIFENESIN 07814541409 Active Jillina Frazell MANAGER FIRE Active PREDNISONE 20 MG TAB 2 tabs daily for 3 days, 1 t ab daily for 3 days, 1/2 tab daily for 2 days PREDNISONE 63441260596 No Longer Active Jillina Frazell MANAGER FIRE Active AMOXICILLIN 500 MG CAPS 2 po BID x 10 days AMOX ICILLIN 56569646367 No Longer Active Jillina Frazell MANAGER FIRE Active SINGULAIR 10 MG TABS 1 po qday for allergies 2 MONTELUKAST SODIUM 24286143969 No Longer Active Carlton Hu MD Acti ve LEVAQUIN 500 MG TAB 1 tablet by mouth daily LEV OFLOXACIN 31957108357 No Longer Active Carlton Hu MD Active FLUTICASONE PROPIONATE 50 MCG/ACT SUSP 2 sprays each n ostril daily for 2 weeks, then 1 spray each nostril daily. FLUTICASONE PRO PIONATE 90219515464 Active Elise Whitmore APRN Active ZITHROMAX 250 MG TAB 2 po today, then 1 po q days 2-5 AZITHROMYCIN 19272644529 No Longer Active Elise Whitmore APRN Acti ve XANAX 0.5 MG TABS one tablet by mouth daily prn anxiety ALPRAZOLAM 15992206142 Active Elise Whitmore APRN Active CYMBALTA 30 MG CPEP 1 cap by mouth daily for depression DULOXETINE HCL 45676512539 Active Carlton Hu MD Active CEFDINIR 300 MG CAPS 1 po BID x 10 days CEFDINI R 08018609708 No Longer Active Carlton Hu MD Active ZOCOR 40 MG TAB 1 tab by mouth daily SIMVASTATI N 43366653946 No Longer Active Carlton Hu MD Active CYCLOBENZAPRINE HCL 10 MG TABS 1 tablet by mouth BID prn had cherelle n CYCLOBENZAPRINE HCL 79319275909 No Longer Active Carlton Hu MD Active LEVOFLOXACIN 500 MG ORAL TABS 1 tab PO daily x 10 days LEVOFLOXACIN 09452076487 No Longer Active Carlton Hu MD Acti ve PREDNISONE 20 MG ORAL TABS 3 tab PO qd x 2d, 2 tab PO qd x 2d, 1 tab PO qd x 2d, 1/2 tab PO qd x 2d PREDNISONE 26289493768 No Longer Active Carlton Hu MD Active TUSSIONEX PENNKINETIC ER 10-8 MG/5ML ORAL LQCR 5 mL PO q 12 hrs PRN cough HYDROCOD POLST-CHLORPHEN POLST 70845359297 Active Elise Whitmore APRN Active FLUTICASONE PROPIONATE 50 MCG/ACT SUSP 1 to 2 sprays each no stril daily FLUTICASONE PROPIONATE 45529369193 No Longer Active T homas W Cloven PA Active CHERATUSSIN AC 100-10 MG/5ML SYRP 1 tsp by mouth every 4 hours as needed for cough GUAIFENESIN-CODEINE 40448472840 No Longer Activ e Blaine HERNANDEZ Active PROMETHAZINE-CODEINE 6.25-10 MG/5ML SYRP 1 tsp by mout h every 6 hours if needed for cough PROMETHAZINE-CODEINE 40120915481 No Long er Active Blaine HERNANDEZ Active CHERATUSSIN AC 100-10 MG/5ML SYRP 1 tsp by mouth every 4 hours as needed for cough GUAIFENESIN-CODEINE 64003824656 No Longer Activ e Blaine HERNANDEZ Active ZITHROMAX Z-REYNA 250 MG TABS 2 today, then 1 daily for 4 days 201 08/30/03 AZITHROMYCIN 11670911857 No Longer Active Columba Raida Act nael ZITHROMAX 250 MG TAB 2 po today, then 1 po q days 2-5 AZITHROMYCIN 86510860148 No Longer Active Carlton Hu MD Acti ve ZITHROMAX Z-REYNA 250 MG TABS 2 today, then 1 daily for 4 days 201 08/07/20 AZITHROMYCIN 84665076179 No Longer Active Columba Raida Act nael AUGMENTIN 875-125 MG TAB 1 po BID x 10 days AMOXICILLIN- POT CLAVULANATE 14033136168 No Longer Active Diya De Guzman APRN Active ZITHROMAX 250 MG TAB 2 po today, then 1 po q days 2-5 AZITHROMYCIN 37564023894 No Longer Active Carlton Hu MD Acti ve TRAMADOL HCL 50 MG TABS 1 po tid with ES Tylenol TRAMADOL HCL 27301436405 Active Carlton Hu MD Active PREMARIN 0.625 MG TABS TAKE 1 TAB BY MOUTH DAILY 07/25 ESTROGENS CONJUGATED 41001481180 No Longer Active Ridge Bess DO Active CYMBALTA 30 MG CPEP 1 cap by mouth daily DULOXE SNEHA HCL 47634206928 No Longer Active Ridge Bess DO Active AMOXICILLIN 500 MG CAP 1 tab by mouth 3 times daily x 10 days 20 14/04/28 AMOXICILLIN 69953661963 No Longer Active Carlton Hu MD Active AMOXICILLIN 500 MG CAP 1 tab by mouth 3 times daily x 10 days 20 13/03/08 AMOXICILLIN 96371999781 No Longer Active Carlton Hu MD Active PROMETHAZINE-CODEINE 6.25-10 MG/5ML SYRP 1 tsp by mouth ever y 8 hours prn cough PROMETHAZINE-CODEINE 69580769936 No Longer Active Robert Hu MD Active MEDROL (REYNA) 4 MG TABS 6 pills x 1 day, then 5 pill s x 1 day then 4 pills x 1 day, then 3 pills x 1 day, then 2 pills x 1 day, then 1 pill x 1 day, then stop METHYLPREDNISOLONE 53104668805 No Longer Active Parris Mora MD Active AZITHROMYCIN 250 MG TABS 2 po qd x 1 day, then 1 po qd x 4 days AZITHROMYCIN 85967109505 No Longer Active Perez Mora MD Active SYMBICORT 160-4.5 MCG/ACT AERO 2 puffs bid with rinse after 2011 BUDESONIDE-FORMOTEROL FUMARATE 74157414312 No Longer Active Perez Mora MD Active LYRICA 75 MG CAPS TAKE 1 CAPSULE BY MOUTH TWICE DAILY 2013 PREGABALIN 05540244327 No Longer Active Carlton Hu MD Active LYRICA 100 MG CAPS Take 1 tab po BID for fibromyalgia PREGABALIN 24611260831 Active Carlton Hu MD Active TOPAMAX 25 MG TABS 1 qHS x 1 week, then 1 BID x 1 week, then 1 qAM and 2 qHS x 1 week, then 2 BID (migraine prevention) TOPIRAMAT E 12475688222 No Longer Active Jerica FUENTES Active TOPAMAX 50 MG TABS take 1 tab po BID for migraines. 12/07/10 TOPIRAMATE 23204645256 No Longer Active Jerica Osei RMA Ac tive TOPAMAX 100 MG TABS Take 1 tablet po bid TOPIRAMATE 4999 0991913 Active Elise Whitmore MANAGER FIRE Active TRIAMCINOLONE ACETONIDE 0.1 % CREA apply three times daily prn r beatrice TRIAMCINOLONE ACETONIDE 98455713876 No Longer Active Carlton Hu MD Active PAXIL 40 MG TAB take 1 tab po qday for depression PAROXETINE HCL 00360483565 Active Elise Whitmore APRN Active CHERATUSSIN AC 100-10 MG/5ML SYRP 5ml po q6hr PRN Cough GUAIFENESIN-CODEINE 82106505579 No Longer Active Carlton Hu MD Active MEDROL (REYNA) 4 MG TABS 6 tabs on day 1, 5 tabs on d ay 2, 4 tabs on day 3, 3 tabs on day 4, 2 tabs on day 5, 1 tab on day 6 METHYLPREDNISOLONE 77858057700 No Longer Active Perez Mora MD Active AZITHROMYCIN 250 MG TABS 2 po qd x 1 day, then 1 po qd x 4 days AZITHROMYCIN 67185006636 No Longer Active Perez Mora MD Active PROPRANOLOL HCL 60 MG TABS 1 PO Q D PROPRANOL OL HCL 55641494510 No Longer Active Perez Mora MD Active CHERATUSSIN AC 100-10 MG/5ML SYRP take one tsp po Q 6hours prn c ough GUAIFENESIN-CODEINE 78528904007 No Longer Active Perez Means Active AUGMENTIN 875-125 MG TAB 1 tab by mouth twice daily with food 20 12/03/31 AMOXICILLIN-POT CLAVULANATE 40287967018 No Longer Active Chanel Mora MD Active CHERATUSSIN AC 100-10 MG/5ML SYRP 1 tsp by mouth every 4 hours as needed for cough GUAIFENESIN-CODEINE 53321276891 No Longer Activ e Hugo Restrepo MD Active ACETAMINOPHEN-CODEINE #3 300-30 MG TABS 1 PO Q 4-6 HRS PRN PAIN ACETAMINOPHEN-CODEINE 85226807559 No Longer Active Hugo Restrepo MD Active LEVAQUIN 500 MG TABS take one po QD LEVOFLOXACI N 23319822268 No Longer Active Griffin HERNANDEZ Active PREDNISONE 20 MG TAB Take 3 tabs daily for 3 days , 2 tabs daily for 3 days, 1 tab daily for 3 days, 1/2 tab daily for 3 days P REDNISONE 29452869517 No Longer Active Carlton Hu MD Active AVELOX 400 MG TABS 1 tab by mouth daily MOXIFLO XACIN HCL 63386586958 No Longer Active Carlton Hu MD Active CHERATUSSIN AC 100-10 MG/5ML SYRP 1 tsp by mouth every 4 hours as needed for cough GUAIFENESIN-CODEINE 74937339584 No Longer Activ e Hugo Restrepo MD Active AVELOX 400 MG TABS 1 tab by mouth daily MOXIFLO XACIN HCL 97996577204 No Longer Active Marcy De La Rosa MD PhD Active TERBINAFINE HCL 250 MG TABS 1 qDay TERBINAF INE HCL 34929490536 No Longer Active Marcy De La Rosa MD PhD Active CHERATUSSIN AC 100-10 MG/5ML SYRP 1 tsp by mouth every 4 hours as needed for cough GUAIFENESIN-CODEINE 33090847900 No Longer Activ e Marcy De La Rosa MD PhD Active AVELOX 400 MG TABS 1 tab by mouth daily MOXIFLO XACIN HCL 84848613330 No Longer Active Marcy De La Rosa MD PhD Active HYDROCODONE-ACETAMINOPHEN 5-325 MG TABS 1 po q 6hr PRN cough 201 05/09/16 HYDROCODONE-ACETAMINOPHEN 12194169216 No Longer Active Marcy De La Rosa MD PhD Active PREDNISONE 20 MG TAB 2 tabs daily for 3 days, 1 t ab daily for 3 days, 1/2 tab daily for 2 days PREDNISONE 69106705624 No Longer Active Carlton Hu MD Active CEFDINIR 300 MG CAPS by mouth twice a day CEFDI ODILIA 60945260228 No Longer Active Carlton Hu MD Active HYDROCHLOROTHIAZIDE 25 MG TABS 1 TAB PO DAILY H YDROCHLOROTHIAZIDE 44644580373 Active Carlton Hu MD Active ACETAMINOPHEN-CODEINE #3 300-30 MG TABS 1 tablet po q 4-6hrs prn pain ACETAMINOPHEN-CODEINE 21952044237 No Longer Active Ridge Bess DO Active ZITHROMAX 250 MG TAB 2 po today, then 1 po q days 2-5 AZITHROMYCIN 52754328221 No Longer Active Carlton Hu MD Acti ve CHERATUSSIN AC 100-10 MG/5ML SYRP take 1 tsp po q4-6 hours prn c ough GUAIFENESIN-CODEINE 02066282481 No Longer Active Carlton Hu MD Active ACETAMINOPHEN-CODEINE #3 300-30 MG TABS 1 PO Q 4-6 HR PRN PAIN 2 ACETAMINOPHEN-CODEINE 84223495911 No Longer Active Carlton rich MD Active LORTAB 7.5-500 MG/15ML ELIX 7.5 ml po q 4 hour prn cough HYDROCODONE-ACETAMINOPHEN 64411332635 No Longer Active Carlton Hu MD Active PREDNISONE 20 MG TAB 1 po bid 3 days, then 1 po q day 3 days 201 05/03/07 PREDNISONE 19913872921 No Longer Active Carlton Hu MD Active ELMIRON 100 MG CAPS 2 tablets in the am and 1 tablet at hs PENTOSAN POLYSULFATE SODIUM 77540815164 Active Carlton Hu MD Ac tive CEFDINIR 300 MG CAPS by mouth twice a day CEFDI ODILIA 60764087136 No Longer Active Carlton Hu MD Active CEFDINIR 300 MG CAPS by mouth twice a day CEFDI ODILIA 32633480283 No Longer Active Carlton Hu MD Active CEFDINIR 300 MG CAPS by mouth twice a day CEFDI ODILIA 56811181463 No Longer Active Carlton Hu MD Active TESSALON PERLES 100 MG CAP 1 tablet by mouth 3 times daily a s needed for cough BENZONATATE 83216499728 No Longer Active Carlton bustamante MD Active CEFDINIR 300 MG CAPS by mouth twice a day CEFDI ODILIA 27359584802 No Longer Active Carlton Hu MD Active ZITHROMAX Z-REYNA 250 MG TABS 2 today, then 1 daily for 4 days 201 04/09/17 AZITHROMYCIN 77700761161 No Longer Active Hugo Restrepo MD Active TESSALON PERLES 100 MG CAP 1 tablet by mouth 3 times daily a s needed for cough TESSALON PERLES 100 MG CAP 720931 BENZONATATE I nactive PREDNISONE 20 MG TAB 1 po bid 3 days, then 1 po q day 3 days 201 05/03/07 PREDNISONE 20 MG TAB 482173 PREDNISONE Inactive LORTAB 7.5-500 MG/15ML ELIX 7.5 ml po q 4 hour prn cough LORTAB 7.5-500 MG/15ML ELIX HYDROCODONE-ACETAMINOPHEN Inacti ve ACETAMINOPHEN-CODEINE #3 300-30 MG TABS 1 PO Q 4-6 HR PRN PAIN 2 ACETAMINOPHEN-CODEINE #3 300-30 MG TABS 604375 ACETAMIN OPHEN-CODEINE Inactive CHERATUSSIN AC 100-10 MG/5ML SYRP take 1 tsp po q4-6 hours prn c ough CHERATUSSIN AC 100-10 MG/5ML SYRP 714774 GUAIFENESIN-CO DEINE Inactive ACETAMINOPHEN-CODEINE #3 300-30 MG TABS 1 tablet po q 4-6hrs prn pain ACETAMINOPHEN-CODEINE #3 300-30 MG TABS 958509 ACETAMIN OPHEN-CODEINE Inactive HYDROCODONE-ACETAMINOPHEN 5-325 MG TABS 1 po q 6hr PRN cough 201 05/09/16 HYDROCODONE-ACETAMINOPHEN 5-325 MG TABS 295299 HYDROCODONE-ACETAMINOPHEN Inactive AVELOX 400 MG TABS 1 tab by mouth daily A VELOX 400 MG TABS 896851 MOXIFLOXACIN HCL Inactive CHERATUSSIN AC 100-10 MG/5ML SYRP 1 tsp by mouth every 4 hours as needed for cough CHERATUSSIN AC 100-10 MG/5ML SYRP 581860 GUAIFENESIN-CODEINE Inactive TERBINAFINE HCL 250 MG TABS 1 qDay TERBINAFINE HCL 250 MG TABS 581307 TERBINAFINE HCL Inactive CHERATUSSIN AC 100-10 MG/5ML SYRP 1 tsp by mouth every 4 hours as needed for cough CHERATUSSIN AC 100-10 MG/5ML SYRP 693505 GUAIFENESIN-CODEINE Inactive ACETAMINOPHEN-CODEINE #3 300-30 MG TABS 1 PO Q 4-6 HRS PRN PAIN ACETAMINOPHEN-CODEINE #3 300-30 MG TABS 066210 ACETAMINOPHEN-CODEIN E Inactive CHERATUSSIN AC 100-10 MG/5ML SYRP 1 tsp by mouth every 4 hours as needed for cough CHERATUSSIN AC 100-10 MG/5ML SYRP 427297 GUAIFENESIN-CODEINE Inactive AUGMENTIN 875-125 MG TAB 1 tab by mouth twice daily with food 20 12/03/31 AUGMENTIN 875-125 MG TAB 300768 AMOXICILLIN-POT CLAVULA EEF Inactive CHERATUSSIN AC 100-10 MG/5ML SYRP take one tsp po Q 6hours prn c ough CHERATUSSIN AC 100-10 MG/5ML SYRP 155205 GUAIFENESIN-CO DEINE Inactive PROPRANOLOL HCL 60 MG TABS 1 PO Q D P ROPRANOLOL HCL 60 MG TABS 520627 PROPRANOLOL HCL Inactive TOPAMAX 50 MG TABS take 1 tab po BID for migraines. 12/07/10 TOPAMAX 50 MG TABS 184978 TOPIRAMATE Inactive TOPAMAX 25 MG TABS 1 qHS x 1 week, then 1 BID x 1 week, then 1 qAM and 2 qHS x 1 week, then 2 BID (migraine prevention) TOPAMAX 2 5 MG TABS 622172 TOPIRAMATE Inactive LYRICA 75 MG CAPS TAKE 1 CAPSULE BY MOUTH TWICE DAILY LYRICA 75 MG CAPS PREGABALIN Inactive SYMBICORT 160-4.5 MCG/ACT AERO 2 puffs bid with rinse after 2011 SYMBICORT 160-4.5 MCG/ACT AERO BUDESONIDE-FORMOT SÁNCHEZ FUMARATE Inactive PROMETHAZINE-CODEINE 6.25-10 MG/5ML SYRP 1 tsp by mouth ever y 8 hours prn cough PROMETHAZINE-CODEINE 6.25-10 MG/5ML SYRP 470770 PROMETHAZINE-CODEINE Inactive CYMBALTA 30 MG CPEP 1 cap by mouth daily CYMBALTA 30 MG CPEP 969994 DULOXETINE HCL Inactive PREMARIN 0.625 MG TABS TAKE 1 TAB BY MOUTH DAILY 07/25 PREMARIN 0.625 MG TABS ESTROGENS CONJUGATED Inactive CHERATUSSIN AC 100-10 MG/5ML SYRP 1 tsp by mouth every 4 hours as needed for cough CHERATUSSIN AC 100-10 MG/5ML SYRP 253995 GUAIFENESIN-CODEINE Inactive PROMETHAZINE-CODEINE 6.25-10 MG/5ML SYRP 1 tsp by mout h every 6 hours if needed for cough PROMETHAZINE-CODEINE 6.25-10 MG/5ML SYRP 131965 PROMETHAZINE-CODEINE Inactive CHERATUSSIN AC 100-10 MG/5ML SYRP 1 tsp by mouth every 4 hours as needed for cough CHERATUSSIN AC 100-10 MG/5ML SYRP 665905 GUAIFENESIN-CODEINE Inactive FLUTICASONE PROPIONATE 50 MCG/ACT SUSP 1 to 2 sprays each no stril daily FLUTICASONE PROPIONATE 50 MCG/ACT SUSP 3983136 FLUTICASONE PROPIONATE Inactive PREDNISONE 20 MG ORAL TABS 3 tab PO qd x 2d, 2 tab PO qd x 2d, 1 tab PO qd x 2d, 1/2 tab PO qd x 2d PREDNISONE 20 MG ORAL TABS 530383 PREDNISONE Inactive LEVOFLOXACIN 500 MG ORAL TABS 1 tab PO daily x 10 days LEVOFLOXACIN 500 MG ORAL TABS 523788 LEVOFLOXACIN Inactive CYCLOBENZAPRINE HCL 10 MG TABS 1 tablet by mouth BID prn had cherelle n CYCLOBENZAPRINE HCL 10 MG TABS 392468 CYCLOBENZAPRINE H CL Inactive ZOCOR 40 MG TAB 1 tab by mouth daily ZOCOR 40 M G TAB 875870 SIMVASTATIN Inactive TUSSIONEX PENNKINETIC ER 10-8 MG/5ML LQCR 5ml po q12hr PRN Cough TUSSIONEX PENNKINETIC ER 10-8 MG/5ML LQCR HYDROCOD POLST-CHLORPHEN POLST Inactive ZITHROMAX Z-REYNA 250 MG TABS 2 today, then 1 daily for 4 days 201 04/09/17 ZITHROMAX Z-REYNA 250 MG TABS 0652255 AZITHROMYCIN Inac tive CEFDINIR 300 MG CAPS [...] q days 2-5 ZITHROMAX 250 MG TAB 3699121 AZITHROMYCIN Inactive CEFDINIR 300 MG CAPS by mouth twice a day CEFDINIR 300 MG CAPS 20020704 CEFDINIR Inactive PREDNISONE 20 MG TAB 2 tabs daily for 3 days, 1 t ab daily for 3 days, 1/2 tab daily for 2 days PREDNISONE 20 MG TAB 307408 PREDNISON E Inactive AVELOX 400 MG TABS 1 tab by mouth daily A VELOX 400 MG TABS 628369 MOXIFLOXACIN HCL Inactive AVELOX 400 MG TABS 1 tab by mouth daily A VELOX 400 MG TABS 653519 MOXIFLOXACIN HCL Inactive PREDNISONE 20 MG TAB Take 3 tabs daily for 3 days , 2 tabs daily for 3 days, 1 tab daily for 3 days, 1/2 tab daily for 3 days PREDNISONE 20 MG TAB 666972 PREDNISONE Inactive LEVAQUIN 500 MG TABS take one po QD LEVAQUIN 50 0 MG TABS 404794 LEVOFLOXACIN Inactive AZITHROMYCIN 250 MG TABS 2 po qd x 1 day, then 1 po qd x 4 days AZITHROMYCIN 250 MG TABS 7551634 AZITHROMYCIN Inactiv e MEDROL (REYNA) 4 MG TABS 6 tabs on day 1, 5 tabs on d ay 2, 4 tabs on day 3, 3 tabs on day 4, 2 tabs on day 5, 1 tab on day 6 MEDROL (REYNA) 4 MG TABS 384184 METHYLPREDNISOLONE Inactive CHERATUSSIN AC 100-10 MG/5ML SYRP 5ml po q6hr PRN Cough CHERATUSSIN AC 100-10 MG/5ML SYRP 946987 GUAIFENESIN-CODEINE Inacti ve TRIAMCINOLONE ACETONIDE 0.1 % CREA apply three times daily prn r beatrice TRIAMCINOLONE ACETONIDE 0.1 % [facility] 5427490 TRIAMCINOLONE ACETONIDE Inactive AZITHROMYCIN 250 MG TABS 2 po qd x 1 day, then 1 po qd x 4 days AZITHROMYCIN 250 MG TABS 0006721 AZITHROMYCIN Inactiv e MEDROL (REYNA) 4 MG TABS 6 pills x 1 day, then 5 pill s x 1 day then 4 pills x 1 day, then 3 pills x 1 day, then 2 pills x 1 day, then 1 pill x 1 day, then stop MEDROL (REYNA) 4 MG TABS 548888 METHYLPREDNISOLONE Inactive AMOXICILLIN 500 MG CAP 1 tab by mouth 3 times daily x 10 days 20 13/03/08 AMOXICILLIN 500 MG CAP 353727 AMOXICILLIN Inactive AMOXICILLIN 500 MG CAP 1 tab by mouth 3 times daily x 10 days 20 14/04/28 AMOXICILLIN 500 MG CAP 216338 AMOXICILLIN Inactive ZITHROMAX 250 MG TAB 2 po today, then 1 po q days 2-5 ZITHROMAX 250 MG TAB 8751205 AZITHROMYCIN Inactive AUGMENTIN 875-125 MG TAB 1 po BID x 10 days AUGMENTIN 875- 125 MG TAB 920743 AMOXICILLIN-POT CLAVULANATE Inactive ZITHROMAX Z-REYNA 250 MG TABS 2 today, then 1 daily for 4 days 201 08/07/20 ZITHROMAX Z-REYNA 250 MG TABS 6957396 AZITHROMYCIN Inac tive ZITHROMAX 250 MG TAB 2 po today, then 1 po q days 2-5 ZITHROMAX 250 MG TAB 1224477 AZITHROMYCIN Inactive ZITHROMAX Z-REYNA 250 MG TABS 2 today, then 1 daily for 4 days 201 08/30/03 ZITHROMAX Z-REYNA 250 MG TABS 6684926 AZITHROMYCIN Inac tive CEFDINIR 300 MG CAPS 1 po BID x 10 days C EFDINIR 300 MG CAPS 028538 CEFDINIR Inactive ZITHROMAX 250 MG TAB 2 po today, then 1 po q days 2-5 ZITHROMAX 250 MG TAB 7386996 AZITHROMYCIN Inactive LEVAQUIN 500 MG TAB 1 tablet by mouth daily LEVAQUIN 500 MG TAB 330587 LEVOFLOXACIN Inactive SINGULAIR 10 MG TABS 1 po qday for allergies 2 SINGULAIR 10 MG TABS 20010504 MONTELUKAST SODIUM Inactive AMOXICILLIN 500 MG CAPS 2 po BID x 10 days AMOXICILLIN 500 MG CAPS 338450 AMOXICILLIN Inactive PREDNISONE 20 MG TAB 2 tabs daily for 3 days, 1 t ab daily for 3 days, 1/2 tab daily for 2 days PREDNISONE 20 MG TAB 235387 PREDNISON E Inactive ZITHROMAX Z-REYNA 250 MG TABS 2 today, then 1 daily for 4 days 201 09/29/14 ZITHROMAX Z-REYNA 250 MG TABS 6941582 AZITHROMYCIN Inac tive Vital Signs Date Name [...] Measured Encounters Code Encounter Date Provider Facility CPT-64229 Level 3 Est. Patient 14:22:19 VOICE INTERCEPT TECHNICIAN Diya cobian [facility] CPT-31137 Level 3 Est. Patient 10:11:46 CDT Carlton rich MD [facility] CPT-55451 Level 3 Est. Patient 17:29:43 CDT Italo [facility] CPT-16755 Level 3 Est. Patient 11:58:06 CDT [facility] CPT-20702 Level 4 Est. Patient 14:36:51 CDT Carlton rich MD [facility] CPT-66733 Level 3 Est. Patient 18:16:00 VOICE INTERCEPT TECHNICIAN Blaine HERNANDEZ [facility] CPT-35199 Level 3 Est. Patient 09:45:49 VOICE INTERCEPT TECHNICIAN Carlton rich MD [facility] CPT-07424 Level 3 Est. Patient 13:19:20 CDT Carlton rich MD [facility] CPT-65589 Level 3 Est. Patient 13:06:43 CDT Ridge tam DO [facility] CPT-75139 Level 3 Est. Patient 10:03:07 CDT Perez Mora MD [facility] CPT-62071 Level 3 Est. Patient 19:50:35 VOICE INTERCEPT TECHNICIAN Carlton rich MD [facility]-92059 Level 4 Est. Patient 18:05:01 VOICE INTERCEPT TECHNICIAN Carlton rich MD [facility]-58465 Level 3 Est. Patient 10:45:55 VOICE INTERCEPT TECHNICIAN Hugo Restrepo MD [facility]-87490 Level 3 Est. Patient 14:12:49 CDT Griffin HERNANDEZ [facility]-99260 Level 3 Est. Patient 17:37:24 CDT Carlton rich MD [facility]-34275 Level 3 Est. Patient 16:51:54 CDT Carlton rich MD [facility]-63309 Level 3 Est. Patient 12:18:11 CDT Hugo Restrepo MD [facility]-10873 Level 3 Est. Patient 11:30:25 CDT Marcy crisostomo MD PhD [facility]-60152 Level 3 Est. Patient 12:00:47 VOICE INTERCEPT TECHNICIAN Carlton rich MD [facility]-48348 Level 3 Est. Patient 16:31:06 VOICE INTERCEPT TECHNICIAN Carlton rich MD [facility]-15358 Level 3 Est. Patient 16:23:24 VOICE INTERCEPT TECHNICIAN Ridge tam DO [facility] CPT-55243 Level 3 Est. Patient 12:34:12 CDT Carlton rich MD [facility]-38116 Level 2 Est. Patient 15:43:33 CDT Robi armstrong MD [facility]-00658 Level 4 Est. Patient 14:04:44 CDT Carlton rich MD [facility]-83008 Level 3 Est. Patient 05:47:59 CDT Ridge tam DO [facility] CPT-04729 Level 3 Est. Patient 13:12:53 VOICE INTERCEPT TECHNICIAN Carlton rich MD [facility] CPT-53851 Level 3 Est. Patient 14:26:53 CDT Hugo Restrepo MD [facility] Procedures Code Procedure Name Date Entry Date Standard Desc ription CPT-J0696 Rocephin 1gm Inj Solr 14:32:13 CDT CPT-J1020 Depo Medrol 60 mg (Methyl Prednisolone A cetate) 14:32:13 CDT CPT-J1100 Decadron 6mg (Dexamethasone) 14:32:13 CDT 2 CPT-59065 Hip bilat min 2V w AP pelvis 13:16:20 CDT 2 CPT-47129 Pelvis only 13:07:33 CDT CPT-84543 Spec Collection and Handling Fee 11:25:12 C DT CPT-57937 Fluzone Quadrivalent Intramuscular Suspe nsion 0.5 ML 14:31:55 CDT CPT-45142 Abx/Therapy Injection 13:28:47 VOICE INTERCEPT TECHNICIAN CPT-J2930 Solu Medrol 125 mg (Methyl Prednisolone Sodium Succinate) 12:00:47 VOICE INTERCEPT TECHNICIAN CPT-03538 Venipuncture Draw Fee 11:33:31 CDT CPT-77253 EKG Trac and Interp 11:21:09 CDT CPT-95177 Chest 2V Frontal and Lat 11:21:09 CDT 12/15 CPT-09937 Venipuncture Draw Fee 08:02:34 CDT CPT-97259 Chest 2V Frontal and Lat 05:47:59 CDT 06/05
--- OUTSIDE RECORDS SUMMARY | 2019-10-08 10:11 | XMS REPORT | Clinical Summary ---
Author Author Caitlin, Juliana Martinez Organization [employer] [facility] Address Unknown Phone Unavailable Allergies, [...] x 10 days 20 16/03/22 AMOXICILLIN-POT CLAVULANATE [id number] No Longer Active Elise Whitmore APRN Active TERBINAFINE HCL 250 MG ORAL TABLET 1 qDay for nail fungus 7 TERBINAFINE HCL 76740630434 No Longer Active Carlton Hu MD A ctive TUSSIONEX PENNKINETIC ER 10-8 MG/5ML ORAL SUSPENSION E XTENDED RELEASE 5ml po q12hr PRN Cough HYDROCOD POLST-CHLORPHEN POLST 71206422811 Active Carlton Hu MD Active PREDNISONE 20 MG ORAL TABLET 1 tab twice daily for 3 d ay, then one daily for three days PREDNISONE 03790214401 Active Carlton Hu MD Active AMOXICILLIN 500 MG ORAL CAPSULE 1 cap by mouth three times a day AMOXICILLIN 81745023723 No Longer Active Carlton Hu MD Active ELMIRON 100 MG ORAL CAPSULE 2 tablets in the am and 1 tablet at hs PENTOSAN POLYSULFATE SODIUM 42328741718 No Longer Active Robert Hu MD Active MUCINEX D 60-600 MG ORAL TABLET EXTENDED RELEASE 12 HOUR 1 t ab po q am PSEUDOEPHEDRINE-GUAIFENESIN 67274363202 No Longer Act nael Carlton Hu MD Active MUCINEX DM MAXIMUM STRENGTH 60-1200 MG ORAL TABLET EXT ENDED RELEASE 12 HOUR 1 tab po q am DEXTROMETHORPHAN-GUAIFENESIN 34536087245 No Longer Active Carlton Hu MD Active TUSSIONEX PENNKINETIC ER 10-8 MG/5ML ORAL SUSPENSION E XTENDED RELEASE 5ml po q12hr PRN Cough HYDROCOD POLST-CHLORPHEN POLST 5 5713451588 No Longer Active Carlton Hu MD Active POTASSIUM CHLORIDE ER 20 MEQ ORAL TABLET EXTENDED RELE ASE Take 1 by mouth 4 times daily for 7 days POTASSIUM CHLORIDE 63647921710 No Longer Active Carlton Hu MD Active ZITHROMAX 250 MG ORAL TABLET 2 po today, then 1 po q days 2-5 20 14/09/04 AZITHROMYCIN 65923652097 No Longer Active Elise Whitmore APRN Active TUSSIONEX PENNKINETIC ER 10-8 MG/5ML ORAL SUSPENSION E XTENDED RELEASE 5 ml twice a day as needed for cough HYDROCOD POLST-CHLORPH EN POLST 50864727122 No Longer Active Elise Whitmore APRN Active MONTELUKAST SODIUM 10 MG ORAL TABLET 1 po daily for Allergy MONTELUKAST SODIUM 15352139886 Active Carlton Hu MD Ac tive TUSSIONEX PENNKINETIC ER 10-8 MG/5ML ORAL SUSPENSION E XTENDED RELEASE 5ml po q12hr PRN Cough HYDROCOD POLST-CHLORPHEN POLST 5 5044632006 No Longer Active uHgo Restrepo MD Active GABAPENTIN 100 MG ORAL CAPSULE 1 po BID for fibromyalgia GABAPENTIN 78701509732 Active Carlton Hu MD Active LYRICA 100 MG ORAL CAPSULE Take 1 tab po BID for fibromyalgia 20 11/08/21 PREGABALIN 61494904559 No Longer Active Elise Whitmore APRN Active PROAIR HFA 108 (90 Base) MCG/ACT INHALATION AEROSOL SO LUTION 2 puffs four times a day as needed ALBUTEROL SULFATE 16372008777 Active Lyndsay Whitmore APRN Active PREDNISONE 20 MG ORAL TABLET 2 tabs daily for 3 days, 1 tab daily for 3 days, 1/2 tab daily for 2 days PREDNISONE 06311793529 No Longer Active Jillina Frakerriel LEAD PROGRAMMER ANALYST Active TUSSIONEX PENNKINETIC ER 10-8 MG/5ML ORAL SUSPENSION E XTENDED RELEASE 5 mL PO q 12 hrs PRN cough HYDROCOD POLST-CHLORPHEN POLST 583699 59473 No Longer Active Jillina Frazell LEAD PROGRAMMER ANALYST Active FLUTICASONE PROPIONATE 50 MCG/ACT NASAL SUSPENSION 2 s prays each nostril daily until bottle is empty FLUTICASONE PROPIONATE 694271111 99 No Longer Active Jillina Frazell LEAD PROGRAMMER ANALYST Active ASMANEX 60 METERED DOSES 220 MCG/INH INHALATION AEROSO L POWDER BREATH ACTIVATED 1 puff bid with rinse after MOMETASONE FUROATE 5878966 4102 No Longer Active Jillina Frazell LEAD PROGRAMMER ANALYST Active ZITHROMAX Z-REYNA 250 MG ORAL TABLET 2 today, then 1 daily for 4 d ays AZITHROMYCIN 40164425777 No Longer Active Elise Whitmore APRN Active TUSSIONEX PENNKINETIC ER 10-8 MG/5ML ORAL SUSPENSION E XTENDED RELEASE 5ml po q12hr PRN Cough HYDROCOD POLST-CHLORPHEN POLST 5 8484279965 No Longer Active Elise Whitmore APRN Active PREDNISONE 20 MG ORAL TABLET 2 tabs daily for 3 days, 1 tab daily for 3 days, 1/2 tab daily for 2 days PREDNISONE 13269034228 No Longer Active Diya De Guzman APRN Active AMOXICILLIN 500 MG ORAL CAPSULE 2 po BID x 10 days 201 09/29/08 AMOXICILLIN 40744503476 No Longer Active Jillina Gege RICEN Act nael SINGULAIR 10 MG ORAL TABLET 1 po qday for allergies 20 14/01/12 MONTELUKAST SODIUM 18265951143 No Longer Active Carlton Hu MD Active LEVAQUIN 500 MG ORAL TABLET 1 tablet by mouth daily 20 13/09/24 LEVOFLOXACIN 21741568370 No Longer Active Carlton Hu MD Acti ve FLUTICASONE PROPIONATE 50 MCG/ACT NASAL SUSPENSION 2 s prays each nostril daily for 2 weeks, then 1 spray each nostril daily. FLUTICASONE PROPIONATE 04510911598 Active Elise Whitmore APRN Active ZITHROMAX 250 MG ORAL TABLET 2 po today, then 1 po q days 2-5 20 13/08/10 AZITHROMYCIN 07979341540 No Longer Active Elise Whitmore APRN Active XANAX 0.5 MG ORAL TABLET one tablet by mouth daily prn anxiety 2015 ALPRAZOLAM 14901880894 Active Carlton Hu MD Active CYMBALTA 30 MG ORAL CAPSULE DELAYED RELEASE PARTICLES 1 cap by mouth daily for depression DULOXETINE HCL 08373269126 Active Carlton beltrán MD Active CEFDINIR 300 MG ORAL CAPSULE 1 po BID x 10 days CEFDINIR 16638481351 No Longer Active Carlton Hu MD Active ZOCOR 40 MG ORAL TABLET 1 tab by mouth daily SI MVASTATIN 66677568912 No Longer Active Carlton Hu MD Active CYCLOBENZAPRINE HCL 10 MG ORAL TABLET 1 tablet by mouth BID prn had pain CYCLOBENZAPRINE HCL 08538046302 No Longer Active Jayden Hu MD Active LEVOFLOXACIN 500 MG ORAL TABLET 1 tab PO daily x 10 days LEVOFLOXACIN 18829780920 No Longer Active Carlton Hu MD Acti ve PREDNISONE 20 MG ORAL TABLET 3 tab PO qd x 2d, 2 tab P O qd x 2d, 1 tab PO qd x 2d, 1/2 tab PO qd x 2d PREDNISONE 86832877451 No Lo nger Active Carlton Hu MD Active FLUTICASONE PROPIONATE 50 MCG/ACT NASAL SUSPENSION 1 t o 2 sprays each nostril daily FLUTICASONE PROPIONATE 08065031917 No Longer Ac tive Blaine HERNANDEZ Active CHERATUSSIN AC 100-10 MG/5ML ORAL SYRUP 1 tsp by mouth every 4 hours as needed for cough GUAIFENESIN-CODEINE 74544468746 No Longe r Active Blaine HERNANDEZ Active PROMETHAZINE-CODEINE 6.25-10 MG/5ML ORAL SYRUP 1 tsp b y mouth every 6 hours if needed for cough PROMETHAZINE-CODEINE 29008003255 No Longer Active Blaine HERNANDEZ Active CHERATUSSIN AC 100-10 MG/5ML ORAL SYRUP 1 tsp by mouth every 4 hours as needed for cough GUAIFENESIN-CODEINE 95556790697 No Longe r Active Blaine HERNANDEZ Active ZITHROMAX Z-REYNA 250 MG ORAL TABLET 2 today, then 1 daily for 4 d ays AZITHROMYCIN 31906214886 No Longer Active Columba Parrish Act nael ZITHROMAX 250 MG ORAL TABLET 2 po today, then 1 po q days 2-5 20 14/03/21 AZITHROMYCIN 24508686676 No Longer Active Carlton Hu MD Active ZITHROMAX Z-REYNA 250 MG ORAL TABLET 2 today, then 1 daily for 4 d ays AZITHROMYCIN 48431744395 No Longer Active Columba Parrish Act nael AUGMENTIN 875-125 MG ORAL TABLET 1 po BID x 10 days 20 13/01/20 AMOXICILLIN-POT CLAVULANATE 84098543342 No Longer Active Diya Daphnebrayan KHAN Active ZITHROMAX 250 MG ORAL TABLET 2 po today, then 1 po q days 2-5 12/08/14 AZITHROMYCIN 59420586360 No Longer Active Carlton Hu MD Active TRAMADOL HCL 50 MG ORAL TABLET 1 po tid with ES Tylenol TRAMADOL HCL 75639479641 Active Carlton Hu MD Active PREMARIN 0.625 MG ORAL TABLET TAKE 1 TAB BY MOUTH DAILY ESTROGENS CONJUGATED 39901934937 No Longer Active Ridge Bess DO A ctive CYMBALTA 30 MG ORAL CAPSULE DELAYED RELEASE PARTICLES 1 cap by mouth daily DULOXETINE HCL 65920750033 No Longer Active Ridge tam DO Active AMOXICILLIN 500 MG ORAL CAPSULE 1 tab by mouth 3 times daily x 10 days AMOXICILLIN 16378262622 No Longer Active Carlton bustamante MD Active AMOXICILLIN 500 MG ORAL CAPSULE 1 tab by mouth 3 times daily x 10 days AMOXICILLIN 94481626611 No Longer Active Carlton bustamante MD Active PROMETHAZINE-CODEINE 6.25-10 MG/5ML ORAL SYRUP 1 tsp b y mouth every 8 hours prn cough PROMETHAZINE-CODEINE 72884097471 No Longer Acti ve Carlton Hu MD Active MEDROL 4 MG ORAL TABLET THERAPY PACK 6 pills x 1 day, then 5 pills x 1 day then 4 pills x 1 day, then 3 pills x 1 day, then 2 pills x 1 day, then 1 pill x 1 day, then stop METHYLPREDNISOLONE 87446571171 No Long er Active Perez Mora MD Active AZITHROMYCIN 250 MG ORAL TABLET 2 po qd x 1 day, then 1 po q d x 4 days AZITHROMYCIN 30187207137 No Longer Active Perez Ambriz MD Active SYMBICORT 160-4.5 MCG/ACT INHALATION AEROSOL 2 puffs bid wit h rinse after BUDESONIDE-FORMOTEROL FUMARATE 36595586387 N o Longer Active Perez Mora MD Active LYRICA 75 MG ORAL CAPSULE TAKE 1 CAPSULE BY MOUTH TWICE DAILY PREGABALIN 79534743884 No Longer Active Carlton Hu MD Acti ve TOPAMAX 25 MG ORAL TABLET 1 qHS x 1 week, then 1 BID x 1 week, then 1 qAM and 2 qHS x 1 week, then 2 BID (migraine prevention) T OPIRAMATE 50985922186 No Longer Active Jerica FUENTES Active TOPAMAX 50 MG ORAL TABLET take 1 tab po BID for migraines. 07/02 TOPIRAMATE 19432870503 No Longer Active Jerica FUENTES Active TOPAMAX 100 MG ORAL TABLET Take 1 tablet po bid TO PIRAMATE 02275407805 Active Carlton Hu MD Active TRIAMCINOLONE ACETONIDE 0.1 % EXTERNAL CREAM apply three roger es daily prn rash TRIAMCINOLONE ACETONIDE 58009687599 No Longer Active Carlton Hu MD Active PAXIL 40 MG ORAL TABLET take 1 tab po qday for depression 0 PAROXETINE HCL 59591963725 Active Carlton Hu MD Active CHERATUSSIN AC 100-10 MG/5ML ORAL SYRUP 5ml po q6hr PRN Cough 20 13/04/14 GUAIFENESIN-CODEINE 99589507375 No Longer Active Carlton Hu MD Active MEDROL 4 MG ORAL TABLET THERAPY PACK 6 tabs on day 1, 5 tabs on day 2, 4 tabs on day 3, 3 tabs on day 4, 2 tabs on day 5, 1 tab on day 6 2013 METHYLPREDNISOLONE 66460608393 No Longer Active Perez Mora MD Active AZITHROMYCIN 250 MG ORAL TABLET 2 po qd x 1 day, then 1 po q d x 4 days AZITHROMYCIN 35195177537 No Longer Active Perez Ambriz MD Active PROPRANOLOL HCL 60 MG ORAL TABLET 1 PO Q D PROPRANOLOL HCL 83241219124 No Longer Active Perez Mora MD Activ e CHERATUSSIN AC 100-10 MG/5ML ORAL SYRUP take one tsp po Q 6h ours prn cough GUAIFENESIN-CODEINE 83146841654 No Longer Active Zia Mora MD Active AUGMENTIN 875-125 MG ORAL TABLET 1 tab by mouth twice daily with food AMOXICILLIN-POT CLAVULANATE 66782476909 No Longer Act nael Perez Mora MD Active CHERATUSSIN AC 100-10 MG/5ML ORAL SYRUP 1 tsp by mouth every 4 hours as needed for cough GUAIFENESIN-CODEINE 44988833346 No Longe r Active Hugo Restrepo MD Active ACETAMINOPHEN-CODEINE #3 300-30 MG ORAL TABLET 1 PO Q 4-6 HRS GA N PAIN ACETAMINOPHEN-CODEINE 05883495769 No Longer Active Hugo Restrepo MD Active LEVAQUIN 500 MG ORAL TABLET take one po QD LEVO FLOXACIN 55006471004 No Longer Active Griffin HERNANDEZ Active PREDNISONE 20 MG ORAL TABLET Take 3 tabs daily for 3 d ays, 2 tabs daily for 3 days, 1 tab daily for 3 days, 1/2 tab daily for 3 days 11/07 PREDNISONE 44312284209 No Longer Active Carlton Hu MD Acti ve AVELOX 400 MG ORAL TABLET 1 tab by mouth daily MOXIFLOXACIN HCL 69137818816 No Longer Active Carlton Hu MD Active CHERATUSSIN AC 100-10 MG/5ML ORAL SYRUP 1 tsp by mouth every 4 hours as needed for cough GUAIFENESIN-CODEINE 92882880643 No Longe r Active Hugo Restrepo MD Active AVELOX 400 MG ORAL TABLET 1 tab by mouth daily MOXIFLOXACIN HCL 28614823427 No Longer Active Marcy De La Rosa MD PhD Active TERBINAFINE HCL 250 MG ORAL TABLET 1 qDay T ERBINAFINE HCL 57626154156 No Longer Active Marcy De La Rosa MD PhD Active CHERATUSSIN AC 100-10 MG/5ML ORAL SYRUP 1 tsp by mouth every 4 hours as needed for cough GUAIFENESIN-CODEINE 78248169950 No Longe r Active Marcy De La Rosa MD PhD Active AVELOX 400 MG ORAL TABLET 1 tab by mouth daily MOXIFLOXACIN HCL 37404431396 No Longer Active Marcy De La Rosa MD PhD Active HYDROCODONE-ACETAMINOPHEN 5-325 MG ORAL TABLET 1 po q 6hr PRN co ugh HYDROCODONE-ACETAMINOPHEN 16433801505 No Longer Active Marcy De La Rosa MD PhD Active PREDNISONE 20 MG ORAL TABLET 2 tabs daily for 3 days, 1 tab daily for 3 days, 1/2 tab daily for 2 days PREDNISONE 13982823027 No Longer Active Carlton Hu MD Active CEFDINIR 300 MG ORAL CAPSULE by mouth twice a day 2011 CEFDINIR 15218653989 No Longer Active Carlton Hu MD Acti ve HYDROCHLOROTHIAZIDE 25 MG ORAL TABLET 1 TAB PO DAILY HYDROCHLOROTHIAZIDE 84375503108 Active Carlton Hu MD A ctive ACETAMINOPHEN-CODEINE #3 300-30 MG ORAL TABLET 1 tablet po q 4-6 hrs prn pain ACETAMINOPHEN-CODEINE 44046598049 No Longer Active Ridge Bess DO Active ZITHROMAX 250 MG ORAL TABLET 2 po today, then 1 po q days 2-5 20 03/07/07 AZITHROMYCIN 07599821312 No Longer Active Carlton Hu MD Active CHERATUSSIN AC 100-10 MG/5ML ORAL SYRUP take 1 tsp po q4-6 h ours prn cough GUAIFENESIN-CODEINE 33319661686 No Longer Active Jayden Hu MD Active ACETAMINOPHEN-CODEINE #3 300-30 MG ORAL TABLET 1 PO Q 4-6 HR PRN PAIN ACETAMINOPHEN-CODEINE 55791740392 No Longer Active Arnol Hu MD Active LORTAB 7.5-500 MG/15ML ORAL ELIXIR 7.5 ml po q 4 hour prn cough HYDROCODONE-ACETAMINOPHEN 87232157937 No Longer Active Carlton Hu MD Active PREDNISONE 20 MG ORAL TABLET 1 po bid 3 days, then 1 po q day 3 days PREDNISONE 20984706248 No Longer Active Carlton Hu MD Active CEFDINIR 300 MG ORAL CAPSULE by mouth twice a day 2011 CEFDINIR 70334714455 No Longer Active Carlton Hu MD Acti ve CEFDINIR 300 MG ORAL CAPSULE by mouth twice a day 2010 CEFDINIR 48421019272 No Longer Active Carlton Hu MD Acti ve CEFDINIR 300 MG ORAL CAPSULE by mouth twice a day 2010 CEFDINIR 41803138184 No Longer Active Carlton Hu MD Acti ve TESSALON PERLES 100 MG ORAL CAPSULE 1 tablet by mouth 3 times daily as needed for cough BENZONATATE 13098309617 No Longer Active Carlton Hu MD Active CEFDINIR 300 MG ORAL CAPSULE by mouth twice a day 2010 CEFDINIR 14755035313 No Longer Active Carlton Hu MD Acti ve ZITHROMAX Z-REYNA 250 MG ORAL TABLET 2 today, then 1 daily for 4 d ays AZITHROMYCIN 85408677884 No Longer Active Hugo Restrepo MD Active TESSALON PERLES 100 MG ORAL CAPSULE 1 tablet by mouth 3 times daily as needed for cough TESSALON PERLES 100 MG ORAL CAPSULE 47069 7 BENZONATATE Inactive PREDNISONE 20 MG ORAL TABLET 1 po bid 3 days, then 1 po q day 3 days PREDNISONE 20 MG ORAL TABLET 556163 PREDNISONE [place] ctive LORTAB 7.5-500 MG/15ML ORAL ELIXIR 7.5 [...] cough CHERATUSSIN AC 100-10 MG/5ML ORAL SYRUP 017227 GUAIFENESIN-CODEINE Inactive ACETAMINOPHEN-CODEINE #3 300-30 MG ORAL TABLET 1 tablet po q 4-6 hrs prn pain ACETAMINOPHEN-CODEINE #3 300-30 MG ORAL TABLET ACETAMINOPHEN-CODEINE Inactive HYDROCODONE-ACETAMINOPHEN 5-325 MG ORAL TABLET 1 po q 6hr PRN co ugh HYDROCODONE-ACETAMINOPHEN 5-325 MG ORAL TABLET 443637 HYDROCODONE-ACETAMINOPHEN Inactive AVELOX 400 MG ORAL TABLET 1 tab by mouth daily AVELOX 400 MG ORAL TABLET 745752 MOXIFLOXACIN HCL Inactive CHERATUSSIN AC 100-10 MG/5ML ORAL SYRUP 1 tsp by mouth every 4 hours as needed for cough CHERATUSSIN AC 100-10 MG/5ML ORAL SYRUP 9 98692 GUAIFENESIN-CODEINE Inactive TERBINAFINE HCL 250 MG ORAL TABLET 1 qDay 07/08 TERBINAFINE HCL 250 MG ORAL TABLET 986860 TERBINAFINE HCL Inactive CHERATUSSIN AC 100-10 MG/5ML ORAL SYRUP 1 tsp by mouth every 4 hours as needed for cough CHERATUSSIN AC 100-10 MG/5ML ORAL SYRUP 9 49783 GUAIFENESIN-CODEINE Inactive ACETAMINOPHEN-CODEINE #3 300-30 MG ORAL TABLET 1 PO Q 4-6 HRS GA N PAIN ACETAMINOPHEN-CODEINE #3 300-30 MG ORAL TABLET ACETAMINOPHEN-CODEINE Inactive CHERATUSSIN AC 100-10 MG/5ML ORAL SYRUP 1 tsp by mouth every 4 hours as needed for cough CHERATUSSIN AC 100-10 MG/5ML ORAL SYRUP 9 15441 GUAIFENESIN-CODEINE Inactive AUGMENTIN 875-125 MG ORAL TABLET 1 tab by mouth twice daily with food AUGMENTIN 875-125 MG ORAL TABLET 031960 AMOXICIL MADELINE-POT CLAVULANATE Inactive CHERATUSSIN AC 100-10 MG/5ML ORAL SYRUP take one tsp po Q 6h ours prn cough CHERATUSSIN AC 100-10 MG/5ML ORAL SYRUP 380857 GUAIFENESIN-CODEINE Inactive PROPRANOLOL HCL 60 MG ORAL TABLET 1 PO Q D PROPRANOLOL HCL 60 MG ORAL TABLET 476856 PROPRANOLOL HCL Inactive TOPAMAX 50 MG ORAL TABLET take 1 tab po BID for migraines. 07/02 TOPAMAX 50 MG ORAL TABLET 074454 TOPIRAMATE Inacti ve TOPAMAX 25 MG ORAL TABLET 1 qHS x 1 week, then 1 BID x 1 week, then 1 qAM and 2 qHS x 1 week, then 2 BID (migraine prevention) TOPAMAX 25 MG ORAL TABLET 156664 TOPIRAMATE Inactive LYRICA 75 MG ORAL CAPSULE TAKE 1 CAPSULE BY MOUTH TWICE DAILY LYRICA 75 MG ORAL CAPSULE PREGABALIN Inactive SYMBICORT 160-4.5 MCG/ACT INHALATION AEROSOL 2 puffs bid wit h rinse after SYMBICORT 160-4.5 MCG/ACT INHALATION AEROSOL BUDESONIDE- FORMOTEROL FUMARATE Inactive PROMETHAZINE-CODEINE 6.25-10 MG/5ML ORAL SYRUP 1 tsp b y mouth every 8 hours prn cough PROMETHAZINE-CODEINE 6.25-10 MG/ 5ML ORAL SYRUP 620539 PROMETHAZINE-CODEINE Inactive CYMBALTA 30 MG ORAL CAPSULE DELAYED RELEASE PARTICLES 1 cap by mouth daily CYMBALTA 30 MG ORAL CAPSULE DELAYED RELE ASE PARTICLES 379434 DULOXETINE HCL Inactive PREMARIN 0.625 MG ORAL TABLET TAKE 1 TAB BY MOUTH DAILY PREMARIN 0.625 MG ORAL TABLET ESTROGENS CONJUGATED Inactive CHERATUSSIN AC 100-10 MG/5ML ORAL SYRUP 1 tsp by mouth every 4 hours as needed for cough CHERATUSSIN AC 100-10 MG/5ML ORAL SYRUP 9 06668 GUAIFENESIN-CODEINE Inactive PROMETHAZINE-CODEINE 6.25-10 MG/5ML ORAL SYRUP 1 tsp b y mouth every 6 hours if needed for cough PROMETHAZINE-CODEINE 6.25-10 MG/5ML ORAL SYRUP 645423 PROMETHAZINE-CODEINE Inactive CHERATUSSIN AC 100-10 MG/5ML ORAL SYRUP 1 tsp by mouth every 4 hours as needed for cough CHERATUSSIN AC 100-10 MG/5ML ORAL SYRUP 9 70143 GUAIFENESIN-CODEINE Inactive FLUTICASONE PROPIONATE 50 MCG/ACT NASAL SUSPENSION 1 t o 2 sprays each nostril daily FLUTICASONE PROPIONATE 50 MCG/AC T NASAL SUSPENSION 0570247 FLUTICASONE PROPIONATE Inactive PREDNISONE 20 MG ORAL TABLET 3 tab PO qd x 2d, 2 tab P O qd x 2d, 1 tab PO qd x 2d, 1/2 tab PO qd x 2d PREDNISONE 20 MG ORAL TAB LET 646410 PREDNISONE Inactive LEVOFLOXACIN 500 MG ORAL TABLET 1 tab PO daily x 10 days LEVOFLOXACIN 500 MG ORAL TABLET 800352 LEVOFLOXACIN Inactive CYCLOBENZAPRINE HCL 10 MG ORAL TABLET 1 tablet by mouth BID prn had pain CYCLOBENZAPRINE HCL 10 MG ORAL TABLET 340357 CYCLOBENZAPRINE HCL Inactive ZOCOR 40 MG ORAL TABLET 1 tab by mouth daily 4 ZOCOR 40 MG ORAL TABLET 852095 SIMVASTATIN Inactive TUSSIONEX PENNKINETIC ER 10-8 MG/5ML [...] FLUTICASONE PROPIO EFE 50 MCG/ACT NASAL SUSPENSION 8935863 FLUTICASONE PROPIONATE Inactive TUSSIONEX PENNKINETIC ER 10-8 [...] ays ZITHROMAX Z-REYNA 250 MG ORAL TABLET 950319 AZITHROMYCIN Inactive CEFDINIR 300 MG ORAL CAPSULE by mouth twice a day 2010 CEFDINIR 300 MG ORAL CAPSULE 304277 CEFDINIR Inactive CEFDINIR 300 MG ORAL CAPSULE by mouth twice a day 2010 CEFDINIR 300 MG ORAL CAPSULE 823814 CEFDINIR Inactive CEFDINIR 300 MG ORAL CAPSULE by mouth twice a day 2010 CEFDINIR 300 MG ORAL CAPSULE 169959 CEFDINIR Inactive CEFDINIR 300 MG ORAL CAPSULE by mouth twice a day 2011 CEFDINIR 300 MG ORAL CAPSULE 855072 CEFDINIR Inactive ZITHROMAX 250 MG ORAL TABLET 2 po today, then 1 po q days 2-5 03/07/07 ZITHROMAX 250 MG ORAL TABLET 832959 AZITHROMYCIN [place] ctive CEFDINIR 300 MG ORAL CAPSULE by mouth twice a day 2011 CEFDINIR 300 MG ORAL CAPSULE 20020704 CEFDINIR Inactive PREDNISONE 20 MG ORAL TABLET 2 tabs daily for 3 days, 1 tab daily for 3 days, 1/2 tab daily for 2 days PREDNISONE 20 MG ORAL T ABLET 050115 PREDNISONE Inactive AVELOX 400 MG ORAL TABLET 1 tab by mouth daily AVELOX 400 MG ORAL TABLET 447739 MOXIFLOXACIN HCL Inactive AVELOX 400 MG ORAL TABLET 1 tab by mouth daily AVELOX 400 MG ORAL TABLET 990017 MOXIFLOXACIN HCL Inactive PREDNISONE 20 MG ORAL TABLET Take 3 tabs daily for 3 d ays, 2 tabs daily for 3 days, 1 tab daily for 3 days, 1/2 tab daily for 3 days 11/07 PREDNISONE 20 MG ORAL TABLET 817847 PREDNISONE Inactive LEVAQUIN 500 MG ORAL TABLET take one po QD LEVAQUIN 500 MG ORAL TABLET 548385 LEVOFLOXACIN Inactive AZITHROMYCIN 250 MG ORAL TABLET 2 po qd x 1 day, then 1 po q d x 4 days AZITHROMYCIN 250 MG ORAL TABLET 648300 AZITHROMY GIOVANNI Inactive MEDROL 4 MG ORAL TABLET THERAPY PACK 6 tabs on day 1, 5 tabs on day 2, 4 tabs on day 3, 3 tabs on day 4, 2 tabs on day 5, 1 tab on day 6 2013 MEDROL 4 MG ORAL TABLET THERAPY PACK 263706 METHYLPREDNISOLONE [place] ctive CHERATUSSIN AC 100-10 MG/5ML ORAL SYRUP 5ml po q6hr PRN Cough 20 13/04/14 CHERATUSSIN AC 100-10 MG/5ML ORAL SYRUP 939089 GUAIFENE SIN-CODEINE Inactive TRIAMCINOLONE ACETONIDE 0.1 % EXTERNAL CREAM apply three roger es daily prn rash TRIAMCINOLONE ACETONIDE 0.1 % EXTERNAL CREAM 101 4314 TRIAMCINOLONE ACETONIDE Inactive AZITHROMYCIN 250 MG ORAL TABLET 2 po qd x 1 day, then 1 po q d x 4 days AZITHROMYCIN 250 MG ORAL TABLET 245787 AZITHROMY GIOVANNI Inactive MEDROL 4 MG ORAL TABLET THERAPY PACK 6 pills x 1 day, then 5 pills x 1 day then 4 pills x 1 day, then 3 pills x 1 day, then 2 pills x 1 day, then 1 pill x 1 day, then stop MEDROL 4 MG ORAL TABLET THERAPY PACK 551390 METHYLPREDNISOLONE Inactive AMOXICILLIN 500 MG ORAL CAPSULE 1 tab by mouth 3 times daily x 10 days AMOXICILLIN 500 MG ORAL CAPSULE 874393 AMOXICILL IN Inactive AMOXICILLIN 500 MG ORAL CAPSULE 1 tab by mouth 3 times daily x 10 days AMOXICILLIN 500 MG ORAL CAPSULE 106626 AMOXICILL IN Inactive ZITHROMAX 250 MG ORAL TABLET 2 po today, then 1 po q days 2-5 20 12/08/14 ZITHROMAX 250 MG ORAL TABLET 602193 AZITHROMYCIN [place] ctive AUGMENTIN 875-125 MG ORAL TABLET 1 po BID x 10 days 20 13/01/20 AUGMENTIN 875-125 MG ORAL TABLET 037534 AMOXICILLIN-POT CLAVULANATE Inactive ZITHROMAX Z-REYNA 250 MG ORAL TABLET 2 today, then 1 daily for 4 d ays ZITHROMAX Z-REYNA 250 MG ORAL TABLET 015610 AZITHROMYCIN Inactive ZITHROMAX 250 MG ORAL TABLET 2 po today, then 1 po q days 2-5 20 14/03/21 ZITHROMAX 250 MG ORAL TABLET 879423 AZITHROMYCIN [place] ctive ZITHROMAX Z-REYNA 250 MG ORAL TABLET 2 today, then 1 daily for 4 d ays ZITHROMAX Z-REYNA 250 MG ORAL TABLET 272104 AZITHROMYCIN Inactive CEFDINIR 300 MG ORAL CAPSULE 1 po BID x 10 days 06/21 CEFDINIR 300 MG ORAL CAPSULE 20020704 CEFDINIR Inactive ZITHROMAX 250 MG ORAL TABLET 2 po today, then 1 po q days 2-5 20 13/08/10 ZITHROMAX 250 MG ORAL TABLET 060242 AZITHROMYCIN [place] ctive LEVAQUIN 500 MG ORAL TABLET 1 tablet by mouth daily 20 13/09/24 LEVAQUIN 500 MG ORAL TABLET 19971102 LEVOFLOXACIN Inactive SINGULAIR 10 MG ORAL TABLET 1 po qday for allergies 20 14/01/12 SINGULAIR 10 MG ORAL TABLET 20010504 MONTELUKAST SODIUM Inactive AMOXICILLIN 500 MG ORAL CAPSULE 2 po BID x 10 days 201 09/29/08 AMOXICILLIN 500 MG ORAL CAPSULE 384349 AMOXICILLIN Inactive PREDNISONE 20 MG ORAL TABLET 2 tabs daily for 3 days, 1 tab daily for 3 days, 1/2 tab daily for 2 days PREDNISONE 20 MG ORAL T ABLET 390202 PREDNISONE Inactive ZITHROMAX Z-REYNA 250 MG ORAL TABLET 2 today, then 1 daily for 4 d ays ZITHROMAX Z-REYNA 250 MG ORAL TABLET 209379 AZITHROMYCIN Inactive PREDNISONE 20 MG ORAL TABLET 2 tabs daily for 3 days, 1 tab daily for 3 days, 1/2 tab daily for 2 days PREDNISONE 20 MG ORAL T ABLET 980292 PREDNISONE Inactive ZITHROMAX 250 MG ORAL TABLET 2 po today, then 1 po q days 2-5 14/09/04 ZITHROMAX 250 MG ORAL TABLET 042413 AZITHROMYCIN [place] ctive AMOXICILLIN 500 MG ORAL CAPSULE 1 cap by mouth three times a day AMOXICILLIN 500 MG ORAL CAPSULE 796543 AMOXICILLIN Inactive TERBINAFINE HCL 250 MG ORAL TABLET 1 qDay for nail fungus 7 TERBINAFINE HCL 250 MG ORAL TABLET 281148 TERBINAFINE HCL Inact nael AUGMENTIN 875-125 MG ORAL TABLET 1 po BID x 10 days 20 16/03/22 AUGMENTIN 875-125 MG ORAL TABLET 443657 AMOXICILLIN-POT CLAVULANATE Inactive Vital Signs Date Name [...] - Chem istry sodium, serum 132 mmol/L 562-940 8623/07/12 potassium, serum 2.7 mmol/L 3.5-5.2 chloride, serum 93 mmol/L 98-107 carbon dioxide, venous blood 30.8 mmol/L 21.0-32 .0 blood glucose 107 mg/dL 65-110 calcium, serum 9.3 mg/dL 8.5-10.1 urea nitrogen, blood 12 mg/dL 7-18 creatinine, serum 1.00 mg/dL 0.60-1.30 sodium, serum 142 mmol/L 219-861 7147/07/17 potassium, serum 4.2 mmol/L 3.5-5.2 chloride, serum 106 mmol/L 98-107 carbon dioxide, venous blood 29.9 mmol/L 21.0-32 .0 blood glucose 108 mg/dL 65-110 calcium, serum 9.1 mg/dL 8.5-10.1 urea nitrogen, blood 11 mg/dL 7-18 creatinine, serum 0.81 mg/dL 0.60-1.30 Lab Report: Rapid Strep - Lab Microbial identification kit, rapid strep method Negative Negative Encounters Code Encounter Date Provider Facility [id number] Level 3 Est. Patient 10:26:00 [facility] Italo KHAN [facility] CPT-08917 Level 3 Est. Patient 13:35:41 [employer] Carlton rich MD [facility] CPT-71264 Level 3 Est. Patient 10:03:52 [employer] Carlton rich MD [facility] CPT-05809 Level 3 Est. Patient 12:17:50 CDT Hugo Restrepo MD [facility] CPT-87702 Level 3 Est. Patient 13:42:38 CDT Elise And chelly [facility] CPT-48711 Level 3 Est. Patient 13:23:51 CDT Diya cobian [facility] CPT-30573 Level 3 Est. Patient 14:22:19 [employer] Astridgreer Mariana cobian [facility] CPT-84538 Level 3 Est. Patient 10:11:46 CDT Carlton rich MD [facility] CPT-45432 Level 3 Est. Patient 17:29:43 CDT Elise And asaelon [facility] CPT-31172 Level 3 Est. Patient 11:58:06 CDT [facility] Level 4 Est. Patient 14:36:51 CDT Carlton rich MD [facility]-27286 Level 3 Est. Patient 18:16:00 [employer] Blaine HERNANDEZ [facility] CPT-87601 Level 3 Est. Patient 09:45:49 [employer] Carlton rich MD [facility] CPT-35516 Level 3 Est. Patient 13:19:20 CDT Carlton rich MD [facility] CPT-49455 Level 3 Est. Patient 13:06:43 CDT Ridge tam DO [facility] CPT-67507 Level 3 Est. Patient 10:03:07 CDT Perez Mora MD [facility] CPT-30374 Level 3 Est. Patient 19:50:35 [employer] Carlton rich MD [facility] CPT-90238 Level 4 Est. Patient 18:05:01 [employer] Carlton rich MD [facility] CPT-28839 Level 3 Est. Patient 10:45:55 [employer] Hugo Restrepo MD [facility] CPT-35848 Level 3 Est. Patient 14:12:49 CDT Griffin HERNANDEZ [facility] CPT-46423 Level 3 Est. Patient 17:37:24 CDT Carlton rich MD [facility] CPT-86433 Level 3 Est. Patient 16:51:54 CDT Carlton rich MD [facility] CPT-77431 Level 3 Est. Patient 12:18:11 CDT Hugo Restrepo MD [facility] CPT-56011 Level 3 Est. Patient 11:30:25 CDT Marcy crisostomo MD PhD [facility] CPT-28695 Level 3 Est. Patient 12:00:47 [employer] Carlton rich MD [facility] CPT-67915 Level 3 Est. Patient 16:31:06 [employer] Carlton rich MD [facility] CPT-51278 Level 3 Est. Patient 16:23:24 F[employer]EL C[employer] COOK Ridge tam DO [facility] CPT-48224 Level 3 Est. Patient 12:34:12 CDT Carlton rich MD [facility] CPT-23770 Level 2 Est. Patient 15:43:33 CDT Robi armstrong MD [facility] CPT-43514 Level 4 Est. Patient 14:04:44 CDT Carlton rich MD [facility] CPT-50664 Level 3 Est. Patient 05:47:59 CDT Ridge tam [facility] CPT-06785 Level 3 Est. Patient 13:12:53 [employer] Carlton rich MD [facility] CPT-78854 Level 3 Est. Patient 14:26:53 CDT Hugo [...] CPT-J1100 Decadron 6mg (Dexamethasone) 14:32:13 CDT 2 CPT-30331 Hip bilat min 2V w AP pelvis 13:16:20 CDT 2 CPT-59100 Pelvis only 13:07:33 CDT CPT-90183 Spec Collection and Handling Fee 11:25:12 C DT CPT-28654 Fluzone Quadrivalent Intramuscular Suspe nsion 0.5 ML 14:31:55 CDT CPT-54397 Abx/Therapy Injection 13:28:47 [employer]EL [employer] CPT-J2930 Solu Medrol 125 mg (Methyl Prednisolone Sodium Succinate) 12:00:47 [employer] CPT-44313 Venipuncture Draw Fee 11:33:31 CDT CPT-10329 EKG Trac and Interp 11:21:09 CDT CPT-10434 Chest 2V Frontal and Lat 11:21:09 CDT 12/15 CPT-37058 Venipuncture Draw Fee 08:02:34 CDT CPT-74734 Chest 2V Frontal and Lat 05:47:59 CDT 06/05
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
--- OUTSIDE RECORDS SUMMARY | 2019-10-08 10:12 | XMS REPORT | Clinical Summary ---
Author Author Caitlin, Juliana Martinez Organization [facility] Address Unknown Phone Unavailable Allergies, Adverse Reactions, [...] then 1 po q days 2-5 AZITHROMYCIN [id number] No Longer Active Carlton Hu MD Acti ve TRAMADOL HCL 50 MG TABS 1 po tid with ES Tylenol TRAMADOL HCL 64067552096 Active Carlton Hu MD Active PREMARIN 0.625 MG TABS TAKE 1 TAB BY MOUTH DAILY 07/25 ESTROGENS CONJUGATED 12921121162 No Longer Active Ridge Bess DO Active CYMBALTA 30 MG CPEP 1 cap by mouth daily DULOXE SNEHA HCL 52918050419 No Longer Active Ridge Bess DO Active AMOXICILLIN 500 MG CAP 1 tab by mouth 3 times daily x 10 days 20 14/04/28 AMOXICILLIN 44102406660 No Longer Active Carlton Hu MD Active AMOXICILLIN 500 MG CAP 1 tab by mouth 3 times daily x 10 days 20 13/03/08 AMOXICILLIN 35252939558 No Longer Active Carlton Hu MD Active CHERATUSSIN AC 100-10 MG/5ML SYRP 1 tsp by mouth every 4 hours as needed for cough GUAIFENESIN-CODEINE 35129757011 Active Carlton banks MD Active CYCLOBENZAPRINE HCL 10 MG TABS 1 tablet by mouth BID prn had pain 2 CYCLOBENZAPRINE HCL 63496379192 Active Carlton Hu MD A ctive PROMETHAZINE-CODEINE 6.25-10 MG/5ML SYRP 1 tsp by mouth ever y 8 hours prn cough PROMETHAZINE-CODEINE 86275222757 No Longer Active Robert Hu MD Active MEDROL (REYNA) 4 MG TABS 6 pills x 1 day, then 5 pill s x 1 day then 4 pills x 1 day, then 3 pills x 1 day, then 2 pills x 1 day, then 1 pill x 1 day, then stop METHYLPREDNISOLONE 06625017613 No Longer Active Parris Mora MD Active AZITHROMYCIN 250 MG TABS 2 po qd x 1 day, then 1 po qd x 4 days AZITHROMYCIN 61967508653 No Longer Active Perez Mora MD Active SYMBICORT 160-4.5 MCG/ACT AERO 2 puffs bid with rinse after 2011 BUDESONIDE-FORMOTEROL FUMARATE [id number] No Longer Active Perez Mora MD Active LYRICA 75 MG CAPS TAKE 1 CAPSULE BY MOUTH TWICE DAILY 2013 PREGABALIN 94535400780 No Longer Active Carlton Hu MD Active LYRICA 100 MG CAPS Take 1 tab po BID for fibromyalgia PREGABALIN 55382671053 Active Carlton Hu MD Active TOPAMAX 25 MG TABS 1 qHS x 1 week, then 1 BID x 1 week, then 1 qAM and 2 qHS x 1 week, then 2 BID (migraine prevention) TOPIRAMAT E 19519719268 No Longer Active Jericacatrachita FUENTES Active TOPAMAX 50 MG TABS take 1 tab po BID for migraines. 12/07/10 TOPIRAMATE 75074632390 No Longer Active Jerica Osei RMA Ac tive TOPAMAX 100 MG TABS Take 1 tablet po bid TOPIRAMATE 4999 7697297 Active Carlton Hu MD Active TRIAMCINOLONE ACETONIDE 0.1 % CREA apply three times daily prn r beatrice TRIAMCINOLONE ACETONIDE 47881521573 No Longer Active Carlton Hu MD Active PAXIL 40 MG TAB take 1 tab po qday for depression PAROXETINE HCL 84621144168 Active Carlton Hu MD Active CHERATUSSIN AC 100-10 MG/5ML SYRP 5ml po q6hr PRN Cough GUAIFENESIN-CODEINE 59525543523 No Longer Active Carlton Hu MD Active MEDROL (REYNA) 4 MG TABS 6 tabs on day 1, 5 tabs on d ay 2, 4 tabs on day 3, 3 tabs on day 4, 2 tabs on day 5, 1 tab on day 6 METHYLPREDNISOLONE 07016485800 No Longer Active Perez Mora MD Active AZITHROMYCIN 250 MG TABS 2 po qd x 1 day, then 1 po qd x 4 days AZITHROMYCIN 75321949494 No Longer Active Perez Mora MD Active PROPRANOLOL HCL 60 MG TABS 1 PO Q D PROPRANOL OL HCL 79402790105 No Longer Active Perez Mora MD Active CHERATUSSIN AC 100-10 MG/5ML SYRP take one tsp po Q 6hours prn c ough GUAIFENESIN-CODEINE 17329619361 No Longer Active Perez Means Active AUGMENTIN 875-125 MG TAB 1 tab by mouth twice daily with food 20 12/03/31 AMOXICILLIN-POT CLAVULANATE 38697002127 No Longer Active Chanel Mora MD Active CHERATUSSIN AC 100-10 MG/5ML SYRP 1 tsp by mouth every 4 hours as needed for cough GUAIFENESIN-CODEINE 77662049250 No Longer Activ e Hugo Restrepo MD Active ACETAMINOPHEN-CODEINE #3 300-30 MG TABS 1 PO Q 4-6 HRS PRN PAIN ACETAMINOPHEN-CODEINE 45823891586 No Longer Active Hugo Restrepo MD Active LEVAQUIN 500 MG TABS take one po QD LEVOFLOXACI N 27183720836 No Longer Active Griffin HERNANDEZ Active PREDNISONE 20 MG TAB Take 3 tabs daily for 3 days , 2 tabs daily for 3 days, 1 tab daily for 3 days, 1/2 tab daily for 3 days P REDNISONE 81401556828 No Longer Active Carlton Hu MD Active AVELOX 400 MG TABS 1 tab by mouth daily MOXIFLO XACIN HCL 44490954805 No Longer Active Carlton Hu MD Active CHERATUSSIN AC 100-10 MG/5ML SYRP 1 tsp by mouth every 4 hours as needed for cough GUAIFENESIN-CODEINE 18137877370 No Longer Activ e Hugo Restrepo MD Active AVELOX 400 MG TABS 1 tab by mouth daily MOXIFLO XACIN HCL 18023489083 No Longer Active Marcy De La Rosa MD PhD Active TERBINAFINE HCL 250 MG TABS 1 qDay TERBINAF INE HCL 18895786595 No Longer Active Marcy De La Rosa MD PhD Active CHERATUSSIN AC 100-10 MG/5ML SYRP 1 tsp by mouth every 4 hours as needed for cough GUAIFENESIN-CODEINE 17267598889 No Longer Activ e Marcy De La Rosa MD PhD Active AVELOX 400 MG TABS 1 tab by mouth daily MOXIFLO XACIN HCL 71700432296 No Longer Active Marcy De La Rosa MD PhD Active HYDROCODONE-ACETAMINOPHEN 5-325 MG TABS 1 po q 6hr PRN cough 201 05/09/16 HYDROCODONE-ACETAMINOPHEN 35814689653 No Longer Active Marcy De La Rosa MD PhD Active PREDNISONE 20 MG TAB 2 tabs daily for 3 days, 1 t ab daily for 3 days, 1/2 tab daily for 2 days PREDNISONE 13241473369 No Longer Active Carlton Hu MD Active CEFDINIR 300 MG CAPS by mouth twice a day CEFDI ODILIA 81425837384 No Longer Active Carlton Hu MD Active ZOCOR 40 MG TAB 1 tab by mouth daily SIMVASTATIN 67167154633 Active Carlton Hu MD Active HYDROCHLOROTHIAZIDE 25 MG TABS 1 TAB PO DAILY H YDROCHLOROTHIAZIDE 31850840140 Active Carlton Hu MD Active ACETAMINOPHEN-CODEINE #3 300-30 MG TABS 1 tablet po q 4-6hrs prn pain ACETAMINOPHEN-CODEINE 18327738054 No Longer Active Ridge Bess DO Active ZITHROMAX 250 MG TAB 2 po today, then 1 po q days 2-5 AZITHROMYCIN 14104280069 No Longer Active Carlton Hu MD Acti ve CHERATUSSIN AC 100-10 MG/5ML SYRP take 1 tsp po q4-6 hours prn c ough GUAIFENESIN-CODEINE 27013110128 No Longer Active Carlton Hu MD Active ACETAMINOPHEN-CODEINE #3 300-30 MG TABS 1 PO Q 4-6 HR PRN PAIN 2 ACETAMINOPHEN-CODEINE 28691192335 No Longer Active Carlton rich MD Active LORTAB 7.5-500 MG/15ML ELIX 7.5 ml po q 4 hour prn cough HYDROCODONE-ACETAMINOPHEN 79250824355 No Longer Active Carlton Hu MD Active PREDNISONE 20 MG TAB 1 po bid 3 days, then 1 po q day 3 days 201 05/03/07 PREDNISONE 55233501813 No Longer Active Carlton Hu MD Active ELMIRON 100 MG CAPS 2 tablets in the am and 1 tablet at hs PENTOSAN POLYSULFATE SODIUM 22411103129 Active Graciemaximiliano Hernandezr Active CEFDINIR 300 MG CAPS by mouth twice a day CEFDI ODILIA 47913401167 No Longer Active Carlton Hu MD Active CEFDINIR 300 MG CAPS by mouth twice a day CEFDI ODILIA 87862399339 No Longer Active Carlton Hu MD Active CEFDINIR 300 MG CAPS by mouth twice a day CEFDI ODILIA 29056880297 No Longer Active Carlton Hu MD Active TESSALON PERLES 100 MG CAP 1 tablet by mouth 3 times daily a s needed for cough BENZONATATE 20314496709 No Longer Active Carlton bustamante MD Active CEFDINIR 300 MG CAPS by mouth twice a day CEFDI ODILIA 99742813761 No Longer Active Carlton Hu MD Active ZITHROMAX Z-REYNA 250 MG TABS 2 today, then 1 daily for 4 days 201 04/09/17 AZITHROMYCIN 51454323424 No Longer Active Hugo Restrepo MD Active TESSALON PERLES 100 MG CAP 1 tablet by mouth 3 times daily a s needed for cough TESSALON PERLES 100 MG CAP 287634 BENZONATATE I nactive PREDNISONE 20 MG TAB 1 po bid 3 days, then 1 po q day 3 days 201 05/03/07 PREDNISONE 20 MG TAB 165523 PREDNISONE Inactive LORTAB 7.5-500 MG/15ML ELIX 7.5 ml po q 4 hour prn cough LORTAB 7.5-500 MG/15ML ELIX HYDROCODONE-ACETAMINOPHEN Inacti ve ACETAMINOPHEN-CODEINE #3 300-30 MG TABS 1 PO Q 4-6 HR PRN PAIN 2 ACETAMINOPHEN-CODEINE #3 300-30 MG TABS 631476 ACETAMIN OPHEN-CODEINE Inactive CHERATUSSIN AC 100-10 MG/5ML SYRP take 1 tsp po q4-6 hours prn c ough CHERATUSSIN AC 100-10 MG/5ML SYRP 830288 GUAIFENESIN-CO DEINE Inactive ACETAMINOPHEN-CODEINE #3 300-30 MG TABS 1 tablet po q 4-6hrs prn pain ACETAMINOPHEN-CODEINE #3 300-30 MG TABS 948871 ACETAMIN OPHEN-CODEINE Inactive HYDROCODONE-ACETAMINOPHEN 5-325 MG TABS 1 po q 6hr PRN cough 201 05/09/16 HYDROCODONE-ACETAMINOPHEN 5-325 MG TABS 052046 HYDROCODONE-ACETAMINOPHEN Inactive AVELOX 400 MG TABS 1 tab by mouth daily A VELOX 400 MG TABS 399910 MOXIFLOXACIN HCL Inactive CHERATUSSIN AC 100-10 MG/5ML SYRP 1 tsp by mouth every 4 hours as needed for cough CHERATUSSIN AC 100-10 MG/5ML SYRP 149971 GUAIFENESIN-CODEINE Inactive TERBINAFINE HCL 250 MG TABS 1 qDay TERBINAFINE HCL 250 MG TABS 968852 TERBINAFINE HCL Inactive CHERATUSSIN AC 100-10 MG/5ML SYRP 1 tsp by mouth every 4 hours as needed for cough CHERATUSSIN AC 100-10 MG/5ML SYRP 810671 GUAIFENESIN-CODEINE Inactive ACETAMINOPHEN-CODEINE #3 300-30 MG TABS 1 PO Q 4-6 HRS PRN PAIN ACETAMINOPHEN-CODEINE #3 300-30 MG TABS 031517 ACETAMINOPHEN-CODEIN E Inactive CHERATUSSIN AC 100-10 MG/5ML SYRP 1 tsp by mouth every 4 hours as needed for cough CHERATUSSIN AC 100-10 MG/5ML SYRP 453223 GUAIFENESIN-CODEINE Inactive AUGMENTIN 875-125 MG TAB 1 tab by mouth twice daily with food 20 12/03/31 AUGMENTIN 875-125 MG TAB 664402 AMOXICILLIN-POT CLAVULA EFE Inactive CHERATUSSIN AC 100-10 MG/5ML SYRP take one tsp po Q 6hours prn c ough CHERATUSSIN AC 100-10 MG/5ML SYRP 398454 GUAIFENESIN-CO DEINE Inactive PROPRANOLOL HCL 60 MG TABS 1 PO Q D P ROPRANOLOL HCL 60 MG TABS 103754 PROPRANOLOL HCL Inactive TOPAMAX 50 MG TABS take 1 tab po BID for migraines. 12/07/10 TOPAMAX 50 MG TABS 844234 TOPIRAMATE Inactive TOPAMAX 25 MG TABS 1 qHS x 1 week, then 1 BID x 1 week, then 1 qAM and 2 qHS x 1 week, then 2 BID (migraine prevention) TOPAMAX 2 5 MG TABS 417673 TOPIRAMATE Inactive LYRICA 75 MG CAPS TAKE 1 CAPSULE BY MOUTH TWICE DAILY LYRICA 75 MG CAPS PREGABALIN Inactive SYMBICORT 160-4.5 MCG/ACT AERO 2 puffs bid with rinse after 2011 SYMBICORT 160-4.5 MCG/ACT AERO BUDESONIDE-FORMOT SÁNCHEZ FUMARATE Inactive PROMETHAZINE-CODEINE 6.25-10 MG/5ML SYRP 1 tsp by mouth ever y 8 hours prn cough PROMETHAZINE-CODEINE 6.25-10 MG/5ML SYRP 538573 PROMETHAZINE-CODEINE Inactive CYMBALTA 30 MG CPEP 1 cap by mouth daily CYMBALTA 30 MG CPEP 383803 DULOXETINE HCL Inactive PREMARIN 0.625 MG TABS TAKE 1 TAB BY MOUTH DAILY 07/25 PREMARIN 0.625 MG TABS ESTROGENS CONJUGATED Inactive ZITHROMAX Z-REYNA 250 MG TABS 2 today, then 1 daily for 4 days 201 04/09/17 ZITHROMAX Z-REYNA 250 MG TABS 2027309 AZITHROMYCIN Inac tive CEFDINIR 300 MG CAPS [...] q days 2-5 ZITHROMAX 250 MG TAB 4102723 AZITHROMYCIN Inactive CEFDINIR 300 MG CAPS by mouth twice a day CEFDINIR 300 MG CAPS 20020704 CEFDINIR Inactive PREDNISONE 20 MG TAB 2 tabs daily for 3 days, 1 t ab daily for 3 days, 1/2 tab daily for 2 days PREDNISONE 20 MG TAB 193126 PREDNISON E Inactive AVELOX 400 MG TABS 1 tab by mouth daily A VELOX 400 MG TABS 011555 MOXIFLOXACIN HCL Inactive AVELOX 400 MG TABS 1 tab by mouth daily A VELOX 400 MG TABS 778817 MOXIFLOXACIN HCL Inactive PREDNISONE 20 MG TAB Take 3 tabs daily for 3 days , 2 tabs daily for 3 days, 1 tab daily for 3 days, 1/2 tab daily for 3 days PREDNISONE 20 MG TAB 486799 PREDNISONE Inactive LEVAQUIN 500 MG TABS take one po QD LEVAQUIN 50 0 MG TABS 836528 LEVOFLOXACIN Inactive AZITHROMYCIN 250 MG TABS 2 po qd x 1 day, then 1 po qd x 4 days AZITHROMYCIN 250 MG TABS 2736176 AZITHROMYCIN Inactiv e MEDROL (REYNA) 4 MG TABS 6 tabs on day 1, 5 tabs on d ay 2, 4 tabs on day 3, 3 tabs on day 4, 2 tabs on day 5, 1 tab on day 6 MEDROL (REYNA) 4 MG TABS METHYLPREDNISOLONE Inactive CHERATUSSIN AC 100-10 MG/5ML SYRP 5ml po q6hr PRN Cough CHERATUSSIN AC 100-10 MG/5ML SYRP 311105 GUAIFENESIN-CODEINE Inacti ve TRIAMCINOLONE ACETONIDE 0.1 % CREA apply three times daily prn r beatrice TRIAMCINOLONE ACETONIDE 0.1 % CREA 4972494 TRIAMCINOLONE ACETONIDE Inactive AZITHROMYCIN 250 MG TABS 2 po qd x 1 day, then 1 po qd x 4 days AZITHROMYCIN 250 MG TABS 6459075 AZITHROMYCIN Inactiv e MEDROL (REYNA) 4 MG [...] days 20 13/03/08 AMOXICILLIN 500 MG CAP 750860 AMOXICILLIN Inactive AMOXICILLIN 500 MG CAP 1 tab by mouth 3 times daily x 10 days 20 14/04/28 AMOXICILLIN 500 MG CAP 725815 AMOXICILLIN Inactive ZITHROMAX 250 MG TAB 2 po today, then 1 po q days 2-5 ZITHROMAX 250 MG TAB [id number] AZITHROMYCIN Inactive Vital Signs Date Name Value [...] [phone] Encounters Code Encounter Date Provider Facility CPT-53577 Level 3 Est. Patient 13:19:20 CDT Carlton rich MD [facility] CPT-67222 Level 3 Est. Patient 13:06:43 CDT Ridge tam DO [facility] CPT-55547 Level 3 Est. Patient 10:03:07 CDT Perez Mora MD [facility]-48289 Level 3 Est. Patient 19:50:35 MARK UP DESIGNER Carlton rich MD [facility] CPT-89831 Level 4 Est. Patient 18:05:01 MARK UP DESIGNER Carlton rich MD [facility] CPT-28360 Level 3 Est. Patient 10:45:55 MARK UP DESIGNER Hugo Restrepo MD [facility]-43738 Level 3 Est. Patient 14:12:49 CDT Griffin HERNANDEZ [facility] CPT-18575 Level 3 Est. Patient 17:37:24 CDT Carlton rich MD [facility] CPT-11717 Level 3 Est. Patient 16:51:54 CDT Carlton rich MD [facility] CPT-89461 Level 3 Est. Patient 12:18:11 CDT Hugo Restrepo MD [facility]-01555 Level 3 Est. Patient 11:30:25 CDT Marcy crisostomo MD PhD [facility]-20166 Level 3 Est. Patient 12:00:47 MARK UP DESIGNER Carlton rich MD [facility] CPT-95968 Level 3 Est. Patient 16:31:06 MARK UP DESIGNER Carlton rich MD [facility] CPT-32295 Level 3 Est. Patient 16:23:24 MARK UP DESIGNER Ridge tam [facility] CPT-70397 Level 3 Est. Patient 12:34:12 CDT Carlton rich MD [facility] CPT-03482 Level 2 Est. Patient 15:43:33 CDT Robi armstrong MD [facility] CPT-72740 Level 4 Est. Patient 14:04:44 CDT Carlton rich MD [facility] CPT-53374 Level 3 Est. Patient 05:47:59 CDT Ridge tam [facility] CPT-47852 Level 3 Est. Patient 13:12:53 MARK UP DESIGNER Carlton rich MD [facility] CPT-11759 Level 3 Est. Patient 14:26:53 CDT Hugo Restrepo MD [facility] Procedures Code Procedure Name Date Entry Date Standard Desc ription CPT-64019 Hip bilat min 2V w AP pelvis 13:16:20 CDT 2 CPT-61094 Pelvis only 13:07:33 CDT CPT-27573 Spec Collection and Handling Fee 11:25:12 C DT CPT-07293 Fluzone Quadrivalent Intramuscular Suspe nsion 0.5 ML 14:31:55 CDT CPT-84574 Abx/Therapy Injection 13:28:47 MARK UP DESIGNER CPT-J2930 Solu Medrol 125 mg (Methyl Prednisolone Sodium Succinate) 12:00:47 MARK UP DESIGNER CPT-10941 Venipuncture Draw Fee 11:33:31 CDT CPT-83470 EKG Trac and Interp 11:21:09 CDT CPT-61056 Chest 2V Frontal and Lat 11:21:09 CDT 12/15 CPT-53195 Venipuncture Draw Fee 08:02:34 CDT CPT-85712 Chest 2V Frontal and Lat 05:47:59 CDT 06/05
--- OUTSIDE RECORDS SUMMARY | 2019-10-08 10:13 | XMS REPORT | Clinical Summary ---
Author Author Caitlin, Juliana Martinez Organization [employer] [facility] Address Unknown Phone Unavailable [...] sites Sinusitis 473.9 Active Diya De Guzman SECTION BEAMER Unspecified sinusitis (chronic) Bronchitis-Acute 466.0 Active Carlton Hu MD Acute bronchitis URI - acute 465.9 Active Elise Whitmore SECTION BEAMER Acute upper respiratory infections of unspecified site [...] 1 tablet by mouth daily LEV OFLOXACIN [id number] No Longer Active Carlton Hu MD Active FLUTICASONE PROPIONATE 50 MCG/ACT SUSP 2 sprays each n ostril daily for 2 weeks, then 1 spray each nostril daily. FLUTICASONE PRO PIONATE 73123021564 Active Elise Whitmore APRN Active ZITHROMAX 250 MG TAB 2 po today, then 1 po q days 2-5 AZITHROMYCIN 26637729487 No Longer Active Elise Whitmore APRN Acti ve XANAX 0.5 MG TABS one tablet by mouth daily prn anxiety ALPRAZOLAM 51611819031 Active Carlton Hu MD Active CYMBALTA 30 MG CPEP 1 cap by mouth daily for depression DULOXETINE HCL 39491374123 Active Carlton Hu MD Active CEFDINIR 300 MG CAPS 1 po BID x 10 days CEFDINI R 43759295242 No Longer Active Carlton Hu MD Active ZOCOR 40 MG TAB 1 tab by mouth daily SIMVASTATI N 13889006048 No Longer Active Carlton Hu MD Active CYCLOBENZAPRINE HCL 10 MG TABS 1 tablet by mouth BID prn had cherelle n CYCLOBENZAPRINE HCL 87738641889 No Longer Active Carlton Hu MD Active LEVOFLOXACIN 500 MG ORAL TABS 1 tab PO daily x 10 days LEVOFLOXACIN 75534373257 No Longer Active Carlton Hu MD Acti ve PREDNISONE 20 MG ORAL TABS 3 tab PO qd x 2d, 2 tab PO qd x 2d, 1 tab PO qd x 2d, 1/2 tab PO qd x 2d PREDNISONE 28239824047 No Longer Active Carlton Hu MD Active TUSSIONEX PENNKINETIC ER 10-8 MG/5ML ORAL LQCR 5 mL PO q 12 hrs PRN cough HYDROCOD POLST-CHLORPHEN POLST 87878373965 Active Zo meeks Active FLUTICASONE PROPIONATE 50 MCG/ACT SUSP 1 to 2 sprays each no stril daily FLUTICASONE PROPIONATE 47890038930 No Longer Active T jaz HERNANDEZ Active CHERATUSSIN AC 100-10 MG/5ML SYRP 1 tsp by mouth every 4 hours as needed for cough GUAIFENESIN-CODEINE 12049419648 No Longer Activ e Blaine HERNANDEZ Active PROMETHAZINE-CODEINE 6.25-10 MG/5ML SYRP 1 tsp by mout h every 6 hours if needed for cough PROMETHAZINE-CODEINE 83411873755 No Long er Active Blaine HERNANDEZ Active CHERATUSSIN AC 100-10 MG/5ML SYRP 1 tsp by mouth every 4 hours as needed for cough GUAIFENESIN-CODEINE 92776782486 No Longer Activ e Blaine HERNANDEZ Active ZITHROMAX Z-REYNA 250 MG TABS 2 today, then 1 daily for 4 days 201 08/30/03 AZITHROMYCIN 44096442253 No Longer Active Columba Raida Act nael ZITHROMAX 250 MG TAB 2 po today, then 1 po q days 2-5 AZITHROMYCIN 05997351159 No Longer Active Carlton Hu MD Acti ve ZITHROMAX Z-REYNA 250 MG TABS 2 today, then 1 daily for 4 days 201 08/07/20 AZITHROMYCIN 90438361551 No Longer Active Columba Raida Act nael AUGMENTIN 875-125 MG TAB 1 po BID x 10 days AMOXICILLIN- POT CLAVULANATE 76976029425 No Longer Active Diya De Guzman APRN Active ZITHROMAX 250 MG TAB 2 po today, then 1 po q days 2-5 AZITHROMYCIN 65097707820 No Longer Active Carlton Hu MD Acti ve TRAMADOL HCL 50 MG TABS 1 po tid with ES Tylenol TRAMADOL HCL 91894544598 Active Carlton Hu MD Active PREMARIN 0.625 MG TABS TAKE 1 TAB BY MOUTH DAILY 07/25 ESTROGENS CONJUGATED 95680010618 No Longer Active Ridge Bess DO Active CYMBALTA 30 MG CPEP 1 cap by mouth daily DULOXE SNEHA HCL 43899110967 No Longer Active Ridge Bess DO Active AMOXICILLIN 500 MG CAP 1 tab by mouth 3 times daily x 10 days 20 14/04/28 AMOXICILLIN 20659389413 No Longer Active Carlton Hu MD Active AMOXICILLIN 500 MG CAP 1 tab by mouth 3 times daily x 10 days 20 13/03/08 AMOXICILLIN 79423289175 No Longer Active Carlton Hu MD Active PROMETHAZINE-CODEINE 6.25-10 MG/5ML SYRP 1 tsp by mouth ever y 8 hours prn cough PROMETHAZINE-CODEINE 39574454692 No Longer Active Robert Hu MD Active MEDROL (REYNA) 4 MG TABS 6 pills x 1 day, then 5 pill s x 1 day then 4 pills x 1 day, then 3 pills x 1 day, then 2 pills x 1 day, then 1 pill x 1 day, then stop METHYLPREDNISOLONE 54226890896 No Longer Active Parris Mora MD Active AZITHROMYCIN 250 MG TABS 2 po qd x 1 day, then 1 po qd x 4 days AZITHROMYCIN 82382252693 No Longer Active Perez Mora MD Active SYMBICORT 160-4.5 MCG/ACT AERO 2 puffs bid with rinse after 2011 BUDESONIDE-FORMOTEROL FUMARATE 75840700016 No Longer Active Perez Mora MD Active LYRICA 75 MG CAPS TAKE 1 CAPSULE BY MOUTH TWICE DAILY 2013 PREGABALIN 46338162477 No Longer Active Carlton Hu MD Active LYRICA 100 MG CAPS Take 1 tab po BID for fibromyalgia PREGABALIN 10138356335 Active Carlton Hu MD Active TOPAMAX 25 MG TABS 1 qHS x 1 week, then 1 BID x 1 week, then 1 qAM and 2 qHS x 1 week, then 2 BID (migraine prevention) TOPIRAMAT E 20028815224 No Longer Active Jerica Farnaz FUENTES Active TOPAMAX 50 MG TABS take 1 tab po BID for migraines. 12/07/10 TOPIRAMATE 76458530839 No Longer Active Jerica Jonesema RMA Ac tive TOPAMAX 100 MG TABS Take 1 tablet po bid TOPIRAMATE 4999 6880351 Active Carlton Hu MD Active TRIAMCINOLONE ACETONIDE 0.1 % CREA apply three times daily prn r beatrice TRIAMCINOLONE ACETONIDE 80872279288 No Longer Active Carlton Hu MD Active PAXIL 40 MG TAB take 1 tab po qday for depression PAROXETINE HCL 48910374601 Active Elise Whitmore SECTION BEAMER Active CHERATUSSIN AC 100-10 MG/5ML SYRP 5ml po q6hr PRN Cough GUAIFENESIN-CODEINE 62231943189 No Longer Active Carlton Hu MD Active MEDROL (REYNA) 4 MG TABS 6 tabs on day 1, 5 tabs on d ay 2, 4 tabs on day 3, 3 tabs on day 4, 2 tabs on day 5, 1 tab on day 6 METHYLPREDNISOLONE 51688615536 No Longer Active Perez Mora MD Active AZITHROMYCIN 250 MG TABS 2 po qd x 1 day, then 1 po qd x 4 days AZITHROMYCIN 11709207544 No Longer Active Perez Mora MD Active PROPRANOLOL HCL 60 MG TABS 1 PO Q D PROPRANOL OL HCL 20415780169 No Longer Active Perez Mora MD Active CHERATUSSIN AC 100-10 MG/5ML SYRP take one tsp po Q 6hours prn c ough GUAIFENESIN-CODEINE 66685582582 No Longer Active Perez Means Active AUGMENTIN 875-125 MG TAB 1 tab by mouth twice daily with food 20 12/03/31 AMOXICILLIN-POT CLAVULANATE 78086261192 No Longer Active Chanel Mora MD Active CHERATUSSIN AC 100-10 MG/5ML SYRP 1 tsp by mouth every 4 hours as needed for cough GUAIFENESIN-CODEINE 82503493092 No Longer Activ e Hugo Restrepo MD Active ACETAMINOPHEN-CODEINE #3 300-30 MG TABS 1 PO Q 4-6 HRS PRN PAIN ACETAMINOPHEN-CODEINE 69689799825 No Longer Active Hugo Restrepo MD Active LEVAQUIN 500 MG TABS take one po QD LEVOFLOXACI N 34765878835 No Longer Active Griffin HERNANDEZ Active PREDNISONE 20 MG TAB Take 3 tabs daily for 3 days , 2 tabs daily for 3 days, 1 tab daily for 3 days, 1/2 tab daily for 3 days P REDNISONE 09352342218 No Longer Active Carlton Hu MD Active AVELOX 400 MG TABS 1 tab by mouth daily MOXIFLO XACIN HCL 97601855878 No Longer Active Carlton Hu MD Active CHERATUSSIN AC 100-10 MG/5ML SYRP 1 tsp by mouth every 4 hours as needed for cough GUAIFENESIN-CODEINE 32914682763 No Longer Activ e Hugo Restrepo MD Active AVELOX 400 MG TABS 1 tab by mouth daily MOXIFLO XACIN HCL 29034838547 No Longer Active Marcy De La Rosa MD PhD Active TERBINAFINE HCL 250 MG TABS 1 qDay TERBINAF INE HCL 80433307766 No Longer Active Marcy De La Rosa MD PhD Active CHERATUSSIN AC 100-10 MG/5ML SYRP 1 tsp by mouth every 4 hours as needed for cough GUAIFENESIN-CODEINE 50384488941 No Longer Activ e Marcy De La Rosa MD PhD Active AVELOX 400 MG TABS 1 tab by mouth daily MOXIFLO XACIN HCL 78485160148 No Longer Active Marcy De La Rosa MD PhD Active HYDROCODONE-ACETAMINOPHEN 5-325 MG TABS 1 po q 6hr PRN cough 201 05/09/16 HYDROCODONE-ACETAMINOPHEN 79242209199 No Longer Active Marcy De La Rosa MD PhD Active PREDNISONE 20 MG TAB 2 tabs daily for 3 days, 1 t ab daily for 3 days, 1/2 tab daily for 2 days PREDNISONE 16531487467 No Longer Active Carlton Hu MD Active CEFDINIR 300 MG CAPS by mouth twice a day CEFDI ODILIA 48276319115 No Longer Active Carlton Hu MD Active HYDROCHLOROTHIAZIDE 25 MG TABS 1 TAB PO DAILY H YDROCHLOROTHIAZIDE 48686027366 Active Carlton Hu MD Active ACETAMINOPHEN-CODEINE #3 300-30 MG TABS 1 tablet po q 4-6hrs prn pain ACETAMINOPHEN-CODEINE 95036759048 No Longer Active Ridge Bess DO Active ZITHROMAX 250 MG TAB 2 po today, then 1 po q days 2-5 AZITHROMYCIN 48180347341 No Longer Active Carlton Hu MD Acti ve CHERATUSSIN AC 100-10 MG/5ML SYRP take 1 tsp po q4-6 hours prn c ough GUAIFENESIN-CODEINE 61155128610 No Longer Active Carlton Hu MD Active ACETAMINOPHEN-CODEINE #3 300-30 MG TABS 1 PO Q 4-6 HR PRN PAIN 2 ACETAMINOPHEN-CODEINE 88243573990 No Longer Active Carlton rich MD Active LORTAB 7.5-500 MG/15ML ELIX 7.5 ml po q 4 hour prn cough HYDROCODONE-ACETAMINOPHEN 62334293749 No Longer Active Carlton Hu MD Active PREDNISONE 20 MG TAB 1 po bid 3 days, then 1 po q day 3 days 201 05/03/07 PREDNISONE 54782128437 No Longer Active Carlton Hu MD Active ELMIRON 100 MG CAPS 2 tablets in the am and 1 tablet at hs PENTOSAN POLYSULFATE SODIUM 34563427521 Active Carlton Hu MD Ac tive CEFDINIR 300 MG CAPS by mouth twice a day CEFDI ODILIA 89740533274 No Longer Active Carlton Hu MD Active CEFDINIR 300 MG CAPS by mouth twice a day CEFDI ODILIA 81665366951 No Longer Active Carlton Hu MD Active CEFDINIR 300 MG CAPS by mouth twice a day CEFDI ODILIA 24245113491 No Longer Active Carlton Hu MD Active TESSALON PERLES 100 MG CAP 1 tablet by mouth 3 times daily a s needed for cough BENZONATATE 14085005980 No Longer Active Carlton bustamante MD Active CEFDINIR 300 MG CAPS by mouth twice a day CEFDI ODILIA 00103395230 No Longer Active Carlton Hu MD Active ZITHROMAX Z-REYNA 250 MG TABS 2 today, then 1 daily for 4 days 201 04/09/17 AZITHROMYCIN 61583412913 No Longer Active Hugo Restrepo MD Active TESSALON PERLES 100 MG CAP 1 tablet by mouth 3 times daily a s needed for cough TESSALON PERLES 100 MG CAP 511903 BENZONATATE I nactive PREDNISONE 20 MG TAB 1 po bid 3 days, then 1 po q day 3 days 201 05/03/07 PREDNISONE 20 MG TAB 219933 PREDNISONE Inactive LORTAB 7.5-500 MG/15ML ELIX 7.5 ml po q 4 hour prn cough LORTAB 7.5-500 MG/15ML ELIX HYDROCODONE-ACETAMINOPHEN Inacti ve ACETAMINOPHEN-CODEINE #3 300-30 MG TABS 1 PO Q 4-6 HR PRN PAIN 2 ACETAMINOPHEN-CODEINE #3 300-30 MG TABS 156376 ACETAMIN OPHEN-CODEINE Inactive CHERATUSSIN AC 100-10 MG/5ML SYRP take 1 tsp po q4-6 hours prn c ough CHERATUSSIN AC 100-10 MG/5ML SYRP 897611 GUAIFENESIN-CO DEINE Inactive ACETAMINOPHEN-CODEINE #3 300-30 MG TABS 1 tablet po q 4-6hrs prn pain ACETAMINOPHEN-CODEINE #3 300-30 MG TABS 369310 ACETAMIN OPHEN-CODEINE Inactive HYDROCODONE-ACETAMINOPHEN 5-325 MG TABS 1 po q 6hr PRN cough 201 05/09/16 HYDROCODONE-ACETAMINOPHEN 5-325 MG TABS 131610 HYDROCODONE-ACETAMINOPHEN Inactive AVELOX 400 MG TABS 1 tab by mouth daily A VELOX 400 MG TABS 955704 MOXIFLOXACIN HCL Inactive CHERATUSSIN AC 100-10 MG/5ML SYRP 1 tsp by mouth every 4 hours as needed for cough CHERATUSSIN AC 100-10 MG/5ML SYRP 077947 GUAIFENESIN-CODEINE Inactive TERBINAFINE HCL 250 MG TABS 1 qDay TERBINAFINE HCL 250 MG TABS 084841 TERBINAFINE HCL Inactive CHERATUSSIN AC 100-10 MG/5ML SYRP 1 tsp by mouth every 4 hours as needed for cough CHERATUSSIN AC 100-10 MG/5ML SYRP 470378 GUAIFENESIN-CODEINE Inactive ACETAMINOPHEN-CODEINE #3 300-30 MG TABS 1 PO Q 4-6 HRS PRN PAIN ACETAMINOPHEN-CODEINE #3 300-30 MG TABS 747286 ACETAMINOPHEN-CODEIN E Inactive CHERATUSSIN AC 100-10 MG/5ML SYRP 1 tsp by mouth every 4 hours as needed for cough CHERATUSSIN AC 100-10 MG/5ML SYRP 575175 GUAIFENESIN-CODEINE Inactive AUGMENTIN 875-125 MG TAB 1 tab by mouth twice daily with food 20 12/03/31 AUGMENTIN 875-125 MG TAB 247309 AMOXICILLIN-POT CLAVULA EFE Inactive CHERATUSSIN AC 100-10 MG/5ML SYRP take one tsp po Q 6hours prn c ough CHERATUSSIN AC 100-10 MG/5ML SYRP 844571 GUAIFENESIN-CO DEINE Inactive PROPRANOLOL HCL 60 MG TABS 1 PO Q D P ROPRANOLOL HCL 60 MG TABS 439414 PROPRANOLOL HCL Inactive TOPAMAX 50 MG TABS take 1 tab po BID for migraines. 12/07/10 TOPAMAX 50 MG TABS 246847 TOPIRAMATE Inactive TOPAMAX 25 MG TABS 1 qHS x 1 week, then 1 BID x 1 week, then 1 qAM and 2 qHS x 1 week, then 2 BID (migraine prevention) TOPAMAX 2 5 MG TABS 031545 TOPIRAMATE Inactive LYRICA 75 MG CAPS TAKE 1 CAPSULE BY MOUTH TWICE DAILY LYRICA 75 MG CAPS PREGABALIN Inactive SYMBICORT 160-4.5 MCG/ACT AERO 2 puffs bid with rinse after 2011 SYMBICORT 160-4.5 MCG/ACT AERO BUDESONIDE-FORMOT SÁNCHEZ FUMARATE Inactive PROMETHAZINE-CODEINE 6.25-10 MG/5ML SYRP 1 tsp by mouth ever y 8 hours prn cough PROMETHAZINE-CODEINE 6.25-10 MG/5ML SYRP 717551 PROMETHAZINE-CODEINE Inactive CYMBALTA 30 MG CPEP 1 cap by mouth daily CYMBALTA 30 MG CPEP 710180 DULOXETINE HCL Inactive PREMARIN 0.625 MG TABS TAKE 1 TAB BY MOUTH DAILY 07/25 PREMARIN 0.625 MG TABS ESTROGENS CONJUGATED Inactive CHERATUSSIN AC 100-10 MG/5ML SYRP 1 tsp by mouth every 4 hours as needed for cough CHERATUSSIN AC 100-10 MG/5ML SYRP 222103 GUAIFENESIN-CODEINE Inactive PROMETHAZINE-CODEINE 6.25-10 MG/5ML SYRP 1 tsp by mout h every 6 hours if needed for cough PROMETHAZINE-CODEINE 6.25-10 MG/5ML SYRP 396923 PROMETHAZINE-CODEINE Inactive CHERATUSSIN AC 100-10 MG/5ML SYRP 1 tsp by mouth every 4 hours as needed for cough CHERATUSSIN AC 100-10 MG/5ML SYRP 498676 GUAIFENESIN-CODEINE Inactive FLUTICASONE PROPIONATE 50 MCG/ACT SUSP 1 to 2 sprays each no stril daily FLUTICASONE PROPIONATE 50 MCG/ACT SUSP 600251 FLUTICASONE PROPIONATE Inactive PREDNISONE 20 MG ORAL TABS 3 tab PO qd x 2d, 2 tab PO qd x 2d, 1 tab PO qd x 2d, 1/2 tab PO qd x 2d PREDNISONE 20 MG ORAL TABS 903097 PREDNISONE Inactive LEVOFLOXACIN 500 MG ORAL TABS 1 tab PO daily x 10 days LEVOFLOXACIN 500 MG ORAL TABS 321920 LEVOFLOXACIN Inactive CYCLOBENZAPRINE HCL 10 MG TABS 1 tablet by mouth BID prn had cherelle n CYCLOBENZAPRINE HCL 10 MG TABS 940026 CYCLOBENZAPRINE H CL Inactive ZOCOR 40 MG TAB 1 tab by mouth daily ZOCOR 40 M G TAB 511149 SIMVASTATIN Inactive ZITHROMAX Z-REYNA 250 MG TABS 2 today, then 1 daily for 4 days 201 04/09/17 ZITHROMAX Z-REYNA 250 MG TABS 5859222 AZITHROMYCIN Inac tive CEFDINIR 300 MG CAPS [...] q days 2-5 ZITHROMAX 250 MG TAB 6588573 AZITHROMYCIN Inactive CEFDINIR 300 MG CAPS by mouth twice a day CEFDINIR 300 MG CAPS 20020704 CEFDINIR Inactive PREDNISONE 20 MG TAB 2 tabs daily for 3 days, 1 t ab daily for 3 days, 1/2 tab daily for 2 days PREDNISONE 20 MG TAB 142782 PREDNISON E Inactive AVELOX 400 MG TABS 1 tab by mouth daily A VELOX 400 MG TABS 236661 MOXIFLOXACIN HCL Inactive AVELOX 400 MG TABS 1 tab by mouth daily A VELOX 400 MG TABS 577565 MOXIFLOXACIN HCL Inactive PREDNISONE 20 MG TAB Take 3 tabs daily for 3 days , 2 tabs daily for 3 days, 1 tab daily for 3 days, 1/2 tab daily for 3 days PREDNISONE 20 MG TAB 267599 PREDNISONE Inactive LEVAQUIN 500 MG TABS take one po QD LEVAQUIN 50 0 MG TABS 769456 LEVOFLOXACIN Inactive AZITHROMYCIN 250 MG TABS 2 po qd x 1 day, then 1 po qd x 4 days AZITHROMYCIN 250 MG TABS 5317747 AZITHROMYCIN Inactiv e MEDROL (REYNA) 4 MG TABS 6 tabs on day 1, 5 tabs on d ay 2, 4 tabs on day 3, 3 tabs on day 4, 2 tabs on day 5, 1 tab on day 6 MEDROL (REYNA) 4 MG TABS 026428 METHYLPREDNISOLONE Inactive CHERATUSSIN AC 100-10 MG/5ML SYRP 5ml po q6hr PRN Cough CHERATUSSIN AC 100-10 MG/5ML SYRP 459433 GUAIFENESIN-CODEINE Inacti ve TRIAMCINOLONE ACETONIDE 0.1 % CREA apply three times daily prn r beatrice TRIAMCINOLONE ACETONIDE 0.1 % CREA 7655047 TRIAMCINOLONE ACETONIDE Inactive AZITHROMYCIN 250 MG TABS 2 po qd x 1 day, then 1 po qd x 4 days AZITHROMYCIN 250 MG TABS 0107132 AZITHROMYCIN Inactiv e MEDROL (REYNA) 4 MG TABS 6 pills x 1 day, then 5 pill s x 1 day then 4 pills x 1 day, then 3 pills x 1 day, then 2 pills x 1 day, then 1 pill x 1 day, then stop MEDROL (REYNA) 4 MG TABS 185709 METHYLPREDNISOLONE Inactive AMOXICILLIN 500 MG CAP 1 tab by mouth 3 times daily x 10 days 20 13/03/08 AMOXICILLIN 500 MG CAP 983044 AMOXICILLIN Inactive AMOXICILLIN 500 MG CAP 1 tab by mouth 3 times daily x 10 days 20 14/04/28 AMOXICILLIN 500 MG CAP 416240 AMOXICILLIN Inactive ZITHROMAX 250 MG TAB 2 po today, then 1 po q days 2-5 ZITHROMAX 250 MG TAB 6971050 AZITHROMYCIN Inactive AUGMENTIN 875-125 MG TAB 1 po BID x 10 days AUGMENTIN 875- 125 MG TAB 022441 AMOXICILLIN-POT CLAVULANATE Inactive ZITHROMAX Z-REYNA 250 MG TABS 2 today, then 1 daily for 4 days 201 08/07/20 ZITHROMAX Z-REYNA 250 MG TABS 3007991 AZITHROMYCIN Inac tive ZITHROMAX 250 MG TAB 2 po today, then 1 po q days 2-5 ZITHROMAX 250 MG TAB 5007827 AZITHROMYCIN Inactive ZITHROMAX Z-REYNA 250 MG TABS 2 today, then 1 daily for 4 days 201 08/30/03 ZITHROMAX Z-REYNA 250 MG TABS 5204166 AZITHROMYCIN Inac tive CEFDINIR 300 MG CAPS 1 po BID x 10 days C EFDINIR 300 MG CAPS 428200 CEFDINIR Inactive ZITHROMAX 250 MG TAB 2 po today, then 1 po q days 2-5 ZITHROMAX 250 MG TAB 3913977 AZITHROMYCIN Inactive LEVAQUIN 500 MG TAB 1 tablet by mouth daily LEVAQUIN 500 MG TAB 733781 LEVOFLOXACIN Inactive Vital Signs Date Name Value [...] Measured Encounters Code Encounter Date Provider Facility CPT-10323 Level 3 Est. Patient 10:11:46 CDT Carlton rich MD [facility] CPT-92786 Level 3 Est. Patient 17:29:43 CDT Italo SECTION BEAMER [facility] CPT-07309 Level 3 Est. Patient 11:58:06 CDT Italo SECTION BEAMER [facility] CPT-08867 Level 4 Est. Patient 14:36:51 CDT Carlton rich MD [facility] CPT-04437 Level 3 Est. Patient 18:16:00 SCOUT EXECUTIVE Blaine [facility] CPT-10393 Level 3 Est. Patient 09:45:49 SCOUT EXECUTIVE Carlton rich MD [facility]-15675 Level 3 Est. Patient 13:19:20 CDT Carlton rich MD [facility]-83872 Level 3 Est. Patient 13:06:43 CDT Ridge tam DO [facility] CPT-12707 Level 3 Est. Patient 10:03:07 CDT Perez Mora MD [facility]-52689 Level 3 Est. Patient 19:50:35 SCOUT EXECUTIVE Carlton rich MD [facility]-52745 Level 4 Est. Patient 18:05:01 SCOUT EXECUTIVE Carlton rich MD [facility]-78496 Level 3 Est. Patient 10:45:55 SCOUT EXECUTIVE Hugo Restrepo MD [facility]-17099 Level 3 Est. Patient 14:12:49 CDT Griffin lincoln [facility]-27607 Level 3 Est. Patient 17:37:24 CDT Carlton rich MD [facility]-43579 Level 3 Est. Patient 16:51:54 CDT Carlton rich MD [facility]-89582 Level 3 Est. Patient 12:18:11 CDT Hugo Restrepo MD [facility]-70635 Level 3 Est. Patient 11:30:25 CDT Marcy crisostomo MD PhD [facility]-71671 Level 3 Est. Patient 12:00:47 SCOUT EXECUTIVE Carlton rich MD [facility]-79918 Level 3 Est. Patient 16:31:06 SCOUT EXECUTIVE Carlton rich MD [facility]-64579 Level 3 Est. Patient 16:23:24 SCOUT EXECUTIVE Ridge tam [facility] CPT-55126 Level 3 Est. Patient 12:34:12 CDT Carlton rich MD [facility] CPT-11494 Level 2 Est. Patient 15:43:33 CDT Robi armstrong MD [facility] CPT-10074 Level 4 Est. Patient 14:04:44 CDT Carlton rich MD [facility] CPT-64091 Level 3 Est. Patient 05:47:59 CDT Ridge tam [facility] CPT-37789 Level 3 Est. Patient 13:12:53 SCOUT EXECUTIVE Carlton rich MD [facility] CPT-87770 Level 3 Est. Patient 14:26:53 CDT Hugo Restrepo MD [facility] Procedures Code Procedure Name Date Entry Date Standard Desc ription CPT-J0696 Rocephin 1gm Inj Solr 14:32:13 CDT CPT-J1020 Depo Medrol 60 mg (Methyl Prednisolone A cetate) 14:32:13 CDT CPT-J1100 Decadron 6mg (Dexamethasone) 14:32:13 CDT 2 CPT-19826 Hip bilat min 2V w AP pelvis 13:16:20 CDT 2 CPT-74668 Pelvis only 13:07:33 CDT CPT-50313 Spec Collection and Handling Fee 11:25:12 C DT CPT-83091 Fluzone Quadrivalent Intramuscular Suspe nsion 0.5 ML 14:31:55 CDT CPT-01313 Abx/Therapy Injection 13:28:47 SCOUT EXECUTIVE CPT-J2930 Solu Medrol 125 mg (Methyl Prednisolone Sodium Succinate) 12:00:47 SCOUT EXECUTIVE CPT-67719 Venipuncture Draw Fee 11:33:31 CDT CPT-22298 EKG Trac and Interp 11:21:09 CDT CPT-05632 Chest 2V Frontal and Lat 11:21:09 CDT 12/15 CPT-13306 Venipuncture Draw Fee 08:02:34 CDT CPT-54039 Chest 2V Frontal and Lat 05:47:59 CDT 06/05
--- OUTSIDE RECORDS SUMMARY | 2019-10-08 10:13 | XMS REPORT | Clinical Summary ---
Author Author Caitlin, Juliana Martinez Organization [facility] [place] Address Unknown Phone [...] x 10 days 20 16/03/22 AMOXICILLIN-POT CLAVULANATE [id number] No Longer Active Elise Whitmore APRN Active TERBINAFINE HCL 250 MG ORAL TABLET 1 qDay for nail fungus 7 TERBINAFINE HCL 93065242746 No Longer Active Carlton Hu MD A ctive TUSSIONEX PENNKINETIC ER 10-8 MG/5ML ORAL SUSPENSION E XTENDED RELEASE 5ml po q12hr PRN Cough HYDROCOD POLST-CHLORPHEN POLST 77796084841 Active Carlton Hu MD Active PREDNISONE 20 MG ORAL TABLET 1 tab twice daily for 3 d ay, then one daily for three days PREDNISONE 45933582169 Active Carlton Hu MD Active AMOXICILLIN 500 MG ORAL CAPSULE 1 cap by mouth three times a day AMOXICILLIN 05252402377 No Longer Active Carlton Hu MD Active ELMIRON 100 MG ORAL CAPSULE 2 tablets in the am and 1 tablet at hs PENTOSAN POLYSULFATE SODIUM 06559704975 No Longer Active Robert Hu MD Active MUCINEX D 60-600 MG ORAL TABLET EXTENDED RELEASE 12 HOUR 1 t ab po q am PSEUDOEPHEDRINE-GUAIFENESIN 48565443130 No Longer Act nael Carlton Hu MD Active MUCINEX DM MAXIMUM STRENGTH 60-1200 MG ORAL TABLET EXT ENDED RELEASE 12 HOUR 1 tab po q am DEXTROMETHORPHAN-GUAIFENESIN 14772770245 No Longer Active Carlton Hu MD Active TUSSIONEX PENNKINETIC ER 10-8 MG/5ML ORAL SUSPENSION E XTENDED RELEASE 5ml po q12hr PRN Cough HYDROCOD POLST-CHLORPHEN POLST 5 4170355814 No Longer Active Carlton Hu MD Active POTASSIUM CHLORIDE ER 20 MEQ ORAL TABLET EXTENDED RELE ASE Take 1 by mouth 4 times daily for 7 days POTASSIUM CHLORIDE 37769106824 No Longer Active Carlton Hu MD Active ZITHROMAX 250 MG ORAL TABLET 2 po today, then 1 po q days 2-5 20 14/09/04 AZITHROMYCIN 40886724542 No Longer Active Elise Whitmore APRN Active TUSSIONEX PENNKINETIC ER 10-8 MG/5ML ORAL SUSPENSION E XTENDED RELEASE 5 ml twice a day as needed for cough HYDROCOD POLST-CHLORPH EN POLST 18331982360 No Longer Active Elise Whitmore APRN Active MONTELUKAST SODIUM 10 MG ORAL TABLET 1 po daily for Allergy MONTELUKAST SODIUM 35923686798 Active Carlton Hu MD Ac tive TUSSIONEX PENNKINETIC ER 10-8 MG/5ML ORAL SUSPENSION E XTENDED RELEASE 5ml po q12hr PRN Cough HYDROCOD POLST-CHLORPHEN POLST 5 8623658129 No Longer Active Hugo Restrepo MD Active GABAPENTIN 100 MG ORAL CAPSULE 1 po BID for fibromyalgia GABAPENTIN 40515810087 Active Carlton Hu MD Active LYRICA 100 MG ORAL CAPSULE Take 1 tab po BID for fibromyalgia 20 11/08/21 PREGABALIN 36941775285 No Longer Active Elise Whitmore APRN Active PROAIR HFA 108 (90 Base) MCG/ACT INHALATION AEROSOL SO LUTION 2 puffs four times a day as needed ALBUTEROL SULFATE 92018171730 Active Lyndsay Whitmore APRN Active PREDNISONE 20 MG ORAL TABLET 2 tabs daily for 3 days, 1 tab daily for 3 days, 1/2 tab daily for 2 days PREDNISONE 66412146690 No Longer Active Jillina Frakerriel LICENSED NURSING ASSISTANT Active TUSSIONEX PENNKINETIC ER 10-8 MG/5ML ORAL SUSPENSION E XTENDED RELEASE 5 mL PO q 12 hrs PRN cough HYDROCOD POLST-CHLORPHEN POLST 585645 24790 No Longer Active Jillina Frazell LICENSED NURSING ASSISTANT Active FLUTICASONE PROPIONATE 50 MCG/ACT NASAL SUSPENSION 2 s prays each nostril daily until bottle is empty FLUTICASONE PROPIONATE 534215151 99 No Longer Active Jillina Frazell LICENSED NURSING ASSISTANT Active ASMANEX 60 METERED DOSES 220 MCG/INH INHALATION AEROSO L POWDER BREATH ACTIVATED 1 puff bid with rinse after MOMETASONE FUROATE 1995140 4102 No Longer Active Jillina Frazell LICENSED NURSING ASSISTANT Active ZITHROMAX Z-REYNA 250 MG ORAL TABLET 2 today, then 1 daily for 4 d ays AZITHROMYCIN 18145571850 No Longer Active Elise Whitmore APRN Active TUSSIONEX PENNKINETIC ER 10-8 MG/5ML ORAL SUSPENSION E XTENDED RELEASE 5ml po q12hr PRN Cough HYDROCOD POLST-CHLORPHEN POLST 5 3332970400 No Longer Active Elise Whitmore APRN Active PREDNISONE 20 MG ORAL TABLET 2 tabs daily for 3 days, 1 tab daily for 3 days, 1/2 tab daily for 2 days PREDNISONE 39555674988 No Longer Active Diya De Guzman APRN Active AMOXICILLIN 500 MG ORAL CAPSULE 2 po BID x 10 days 201 09/29/08 AMOXICILLIN 14098533820 No Longer Active Jillina Gege RICEN Act nael SINGULAIR 10 MG ORAL TABLET 1 po qday for allergies 20 14/01/12 MONTELUKAST SODIUM 21551583618 No Longer Active Carlton Hu MD Active LEVAQUIN 500 MG ORAL TABLET 1 tablet by mouth daily 20 13/09/24 LEVOFLOXACIN 46659550246 No Longer Active Carlton Hu MD Acti ve FLUTICASONE PROPIONATE 50 MCG/ACT NASAL SUSPENSION 2 s prays each nostril daily for 2 weeks, then 1 spray each nostril daily. FLUTICASONE PROPIONATE 84318282344 Active Elise Whitmore APRN Active ZITHROMAX 250 MG ORAL TABLET 2 po today, then 1 po q days 2-5 20 13/08/10 AZITHROMYCIN 84060874522 No Longer Active Elise Whitmore APRN Active XANAX 0.5 MG ORAL TABLET one tablet by mouth daily prn anxiety 2015 ALPRAZOLAM 42380888830 Active Carlton Hu MD Active CYMBALTA 30 MG ORAL CAPSULE DELAYED RELEASE PARTICLES 1 cap by mouth daily for depression DULOXETINE HCL 48384782766 Active Carlton beltrán MD Active CEFDINIR 300 MG ORAL CAPSULE 1 po BID x 10 days CEFDINIR 63119607733 No Longer Active Carlton Hu MD Active ZOCOR 40 MG ORAL TABLET 1 tab by mouth daily SI MVASTATIN 16601612687 No Longer Active Carlton Hu MD Active CYCLOBENZAPRINE HCL 10 MG ORAL TABLET 1 tablet by mouth BID prn had pain CYCLOBENZAPRINE HCL 48350704566 No Longer Active Jayden Hu MD Active LEVOFLOXACIN 500 MG ORAL TABLET 1 tab PO daily x 10 days LEVOFLOXACIN 56890788433 No Longer Active Carlton Hu MD Acti ve PREDNISONE 20 MG ORAL TABLET 3 tab PO qd x 2d, 2 tab P O qd x 2d, 1 tab PO qd x 2d, 1/2 tab PO qd x 2d PREDNISONE 45963390756 No Lo nger Active Carlton Hu MD Active FLUTICASONE PROPIONATE 50 MCG/ACT NASAL SUSPENSION 1 t o 2 sprays each nostril daily FLUTICASONE PROPIONATE 66207077095 No Longer Ac tive Blaine HERNANDEZ Active CHERATUSSIN AC 100-10 MG/5ML ORAL SYRUP 1 tsp by mouth every 4 hours as needed for cough GUAIFENESIN-CODEINE 54762044508 No Longe r Active Blaine HERNANDEZ Active PROMETHAZINE-CODEINE 6.25-10 MG/5ML ORAL SYRUP 1 tsp b y mouth every 6 hours if needed for cough PROMETHAZINE-CODEINE 65090770789 No Longer Active Blaine HERNANDEZ Active CHERATUSSIN AC 100-10 MG/5ML ORAL SYRUP 1 tsp by mouth every 4 hours as needed for cough GUAIFENESIN-CODEINE 61642149343 No Longe r Active Blaine HERNANDEZ Active ZITHROMAX Z-REYNA 250 MG ORAL TABLET 2 today, then 1 daily for 4 d ays AZITHROMYCIN 18929735879 No Longer Active Columba Parrish Act nael ZITHROMAX 250 MG ORAL TABLET 2 po today, then 1 po q days 2-5 20 14/03/21 AZITHROMYCIN 95085122543 No Longer Active Carlton Hu MD Active ZITHROMAX Z-REYNA 250 MG ORAL TABLET 2 today, then 1 daily for 4 d ays AZITHROMYCIN 81160320082 No Longer Active Columba Parrish Act nael AUGMENTIN 875-125 MG ORAL TABLET 1 po BID x 10 days 20 13/01/20 AMOXICILLIN-POT CLAVULANATE 26724540827 No Longer Active Diya Daphnebrayan KHAN Active ZITHROMAX 250 MG ORAL TABLET 2 po today, then 1 po q days 2-5 12/08/14 AZITHROMYCIN 30680832529 No Longer Active Carlton Hu MD Active TRAMADOL HCL 50 MG ORAL TABLET 1 po tid with ES Tylenol TRAMADOL HCL 19271169296 Active Carlton Hu MD Active PREMARIN 0.625 MG ORAL TABLET TAKE 1 TAB BY MOUTH DAILY ESTROGENS CONJUGATED 97516030992 No Longer Active Ridge Bess DO A ctive CYMBALTA 30 MG ORAL CAPSULE DELAYED RELEASE PARTICLES 1 cap by mouth daily DULOXETINE HCL 16953395855 No Longer Active Ridge tam DO Active AMOXICILLIN 500 MG ORAL CAPSULE 1 tab by mouth 3 times daily x 10 days AMOXICILLIN 92738880498 No Longer Active Carlton bustamante MD Active AMOXICILLIN 500 MG ORAL CAPSULE 1 tab by mouth 3 times daily x 10 days AMOXICILLIN 43880892907 No Longer Active Carlton bustamante MD Active PROMETHAZINE-CODEINE 6.25-10 MG/5ML ORAL SYRUP 1 tsp b y mouth every 8 hours prn cough PROMETHAZINE-CODEINE 32974728674 No Longer Acti ve Carlton Hu MD Active MEDROL 4 MG ORAL TABLET THERAPY PACK 6 pills x 1 day, then 5 pills x 1 day then 4 pills x 1 day, then 3 pills x 1 day, then 2 pills x 1 day, then 1 pill x 1 day, then stop METHYLPREDNISOLONE 57236943389 No Long er Active Perez Mora MD Active AZITHROMYCIN 250 MG ORAL TABLET 2 po qd x 1 day, then 1 po q d x 4 days AZITHROMYCIN 49757044783 No Longer Active Perez Ambriz MD Active SYMBICORT 160-4.5 MCG/ACT INHALATION AEROSOL 2 puffs bid wit h rinse after BUDESONIDE-FORMOTEROL FUMARATE 28591551550 N o Longer Active Perez Mora MD Active LYRICA 75 MG ORAL CAPSULE TAKE 1 CAPSULE BY MOUTH TWICE DAILY PREGABALIN 24292706413 No Longer Active Carlton Hu MD Acti ve TOPAMAX 25 MG ORAL TABLET 1 qHS x 1 week, then 1 BID x 1 week, then 1 qAM and 2 qHS x 1 week, then 2 BID (migraine prevention) T OPIRAMATE 23600084292 No Longer Active Jerica FUENTES Active TOPAMAX 50 MG ORAL TABLET take 1 tab po BID for migraines. 07/02 TOPIRAMATE 88296721624 No Longer Active Jerica FUENTES Active TOPAMAX 100 MG ORAL TABLET Take 1 tablet po bid TO PIRAMATE 22527101174 Active Carlton Hu MD Active TRIAMCINOLONE ACETONIDE 0.1 % EXTERNAL CREAM apply three roger es daily prn rash TRIAMCINOLONE ACETONIDE 22194672914 No Longer Active Carlton Hu MD Active PAXIL 40 MG ORAL TABLET take 1 tab po qday for depression 0 PAROXETINE HCL 51081277282 Active Carlton Hu MD Active CHERATUSSIN AC 100-10 MG/5ML ORAL SYRUP 5ml po q6hr PRN Cough 20 13/04/14 GUAIFENESIN-CODEINE 17988105508 No Longer Active Carlton Hu MD Active MEDROL 4 MG ORAL TABLET THERAPY PACK 6 tabs on day 1, 5 tabs on day 2, 4 tabs on day 3, 3 tabs on day 4, 2 tabs on day 5, 1 tab on day 6 2013 METHYLPREDNISOLONE 87514910215 No Longer Active Perez Mora MD Active AZITHROMYCIN 250 MG ORAL TABLET 2 po qd x 1 day, then 1 po q d x 4 days AZITHROMYCIN 45992768104 No Longer Active Perez Ambriz MD Active PROPRANOLOL HCL 60 MG ORAL TABLET 1 PO Q D PROPRANOLOL HCL 61989827336 No Longer Active Perez Mora MD Activ e CHERATUSSIN AC 100-10 MG/5ML ORAL SYRUP take one tsp po Q 6h ours prn cough GUAIFENESIN-CODEINE 20602989244 No Longer Active Zia Mora MD Active AUGMENTIN 875-125 MG ORAL TABLET 1 tab by mouth twice daily with food AMOXICILLIN-POT CLAVULANATE 60332951696 No Longer Act nael Perez Mora MD Active CHERATUSSIN AC 100-10 MG/5ML ORAL SYRUP 1 tsp by mouth every 4 hours as needed for cough GUAIFENESIN-CODEINE 58469618800 No Longe r Active Hugo Restrepo MD Active ACETAMINOPHEN-CODEINE #3 300-30 MG ORAL TABLET 1 PO Q 4-6 HRS MD N PAIN ACETAMINOPHEN-CODEINE 38146441899 No Longer Active Hugo Restrepo MD Active LEVAQUIN 500 MG ORAL TABLET take one po QD LEVO FLOXACIN 20547090470 No Longer Active Griffin HERNANDEZ Active PREDNISONE 20 MG ORAL TABLET Take 3 tabs daily for 3 d ays, 2 tabs daily for 3 days, 1 tab daily for 3 days, 1/2 tab daily for 3 days 11/07 PREDNISONE 23241295878 No Longer Active Carlton Hu MD Acti ve AVELOX 400 MG ORAL TABLET 1 tab by mouth daily MOXIFLOXACIN HCL 27494025259 No Longer Active Carlton Hu MD Active CHERATUSSIN AC 100-10 MG/5ML ORAL SYRUP 1 tsp by mouth every 4 hours as needed for cough GUAIFENESIN-CODEINE 21338253170 No Longe r Active Hugo Restrepo MD Active AVELOX 400 MG ORAL TABLET 1 tab by mouth daily MOXIFLOXACIN HCL 81971467739 No Longer Active Marcy De La Rosa MD PhD Active TERBINAFINE HCL 250 MG ORAL TABLET 1 qDay T ERBINAFINE HCL 08993440694 No Longer Active Marcy De La Rosa MD PhD Active CHERATUSSIN AC 100-10 MG/5ML ORAL SYRUP 1 tsp by mouth every 4 hours as needed for cough GUAIFENESIN-CODEINE 80490117765 No Longe r Active Marcy De La Rosa MD PhD Active AVELOX 400 MG ORAL TABLET 1 tab by mouth daily MOXIFLOXACIN HCL 03611885635 No Longer Active Marcy De La Rosa MD PhD Active HYDROCODONE-ACETAMINOPHEN 5-325 MG ORAL TABLET 1 po q 6hr PRN co ugh HYDROCODONE-ACETAMINOPHEN 66598011120 No Longer Active Marcy De La Rosa MD PhD Active PREDNISONE 20 MG ORAL TABLET 2 tabs daily for 3 days, 1 tab daily for 3 days, 1/2 tab daily for 2 days PREDNISONE 59149179736 No Longer Active Carlton Hu MD Active CEFDINIR 300 MG ORAL CAPSULE by mouth twice a day 2011 CEFDINIR 28174777692 No Longer Active Carlton Hu MD Acti ve HYDROCHLOROTHIAZIDE 25 MG ORAL TABLET 1 TAB PO DAILY HYDROCHLOROTHIAZIDE 11711743109 Active Carlton Hu MD A ctive ACETAMINOPHEN-CODEINE #3 300-30 MG ORAL TABLET 1 tablet po q 4-6 hrs prn pain ACETAMINOPHEN-CODEINE 33075544149 No Longer Active Ridge Bess DO Active ZITHROMAX 250 MG ORAL TABLET 2 po today, then 1 po q days 2-5 20 03/07/07 AZITHROMYCIN 35479656295 No Longer Active Carlton Hu MD Active CHERATUSSIN AC 100-10 MG/5ML ORAL SYRUP take 1 tsp po q4-6 h ours prn cough GUAIFENESIN-CODEINE 72376184978 No Longer Active Jayden Hu MD Active ACETAMINOPHEN-CODEINE #3 300-30 MG ORAL TABLET 1 PO Q 4-6 HR PRN PAIN ACETAMINOPHEN-CODEINE 71196989543 No Longer Active Arnol Hu MD Active LORTAB 7.5-500 MG/15ML ORAL ELIXIR 7.5 ml po q 4 hour prn cough HYDROCODONE-ACETAMINOPHEN 86646835882 No Longer Active Carlton Hu MD Active PREDNISONE 20 MG ORAL TABLET 1 po bid 3 days, then 1 po q day 3 days PREDNISONE 56297131872 No Longer Active Carlton Hu MD Active CEFDINIR 300 MG ORAL CAPSULE by mouth twice a day 2011 CEFDINIR 72780677932 No Longer Active Carlton Hu MD Acti ve CEFDINIR 300 MG ORAL CAPSULE by mouth twice a day 2010 CEFDINIR 12567572808 No Longer Active Carlton Hu MD Acti ve CEFDINIR 300 MG ORAL CAPSULE by mouth twice a day 2010 CEFDINIR 28861585551 No Longer Active Carlton Hu MD Acti ve TESSALON PERLES 100 MG ORAL CAPSULE 1 tablet by mouth 3 times daily as needed for cough BENZONATATE 04918095995 No Longer Active Carlton Hu MD Active CEFDINIR 300 MG ORAL CAPSULE by mouth twice a day 2010 CEFDINIR 13966755986 No Longer Active Carlton Hu MD Acti ve ZITHROMAX Z-REYNA 250 MG ORAL TABLET 2 today, then 1 daily for 4 d ays AZITHROMYCIN 73014194305 No Longer Active Hugo Restrepo MD Active TESSALON PERLES 100 MG ORAL CAPSULE 1 tablet by mouth 3 times daily as needed for cough TESSALON PERLES 100 MG ORAL CAPSULE 61950 7 BENZONATATE Inactive PREDNISONE 20 MG ORAL TABLET 1 po bid 3 days, then 1 po q day 3 days PREDNISONE 20 MG ORAL TABLET 712014 PREDNISONE [place] ctive LORTAB 7.5-500 MG/15ML ORAL ELIXIR 7.5 [...] cough CHERATUSSIN AC 100-10 MG/5ML ORAL SYRUP 844404 GUAIFENESIN-CODEINE Inactive ACETAMINOPHEN-CODEINE #3 300-30 MG ORAL TABLET 1 tablet po q 4-6 hrs prn pain ACETAMINOPHEN-CODEINE #3 300-30 MG ORAL TABLET ACETAMINOPHEN-CODEINE Inactive HYDROCODONE-ACETAMINOPHEN 5-325 MG ORAL TABLET 1 po q 6hr PRN co ugh HYDROCODONE-ACETAMINOPHEN 5-325 MG ORAL TABLET 536103 HYDROCODONE-ACETAMINOPHEN Inactive AVELOX 400 MG ORAL TABLET 1 tab by mouth daily AVELOX 400 MG ORAL TABLET 388864 MOXIFLOXACIN HCL Inactive CHERATUSSIN AC 100-10 MG/5ML ORAL SYRUP 1 tsp by mouth every 4 hours as needed for cough CHERATUSSIN AC 100-10 MG/5ML ORAL SYRUP 9 22109 GUAIFENESIN-CODEINE Inactive TERBINAFINE HCL 250 MG ORAL TABLET 1 qDay 07/08 TERBINAFINE HCL 250 MG ORAL TABLET 547124 TERBINAFINE HCL Inactive CHERATUSSIN AC 100-10 MG/5ML ORAL SYRUP 1 tsp by mouth every 4 hours as needed for cough CHERATUSSIN AC 100-10 MG/5ML ORAL SYRUP 9 38556 GUAIFENESIN-CODEINE Inactive ACETAMINOPHEN-CODEINE #3 300-30 MG ORAL TABLET 1 PO Q 4-6 HRS MD N PAIN ACETAMINOPHEN-CODEINE #3 300-30 MG ORAL TABLET ACETAMINOPHEN-CODEINE Inactive CHERATUSSIN AC 100-10 MG/5ML ORAL SYRUP 1 tsp by mouth every 4 hours as needed for cough CHERATUSSIN AC 100-10 MG/5ML ORAL SYRUP 9 65069 GUAIFENESIN-CODEINE Inactive AUGMENTIN 875-125 MG ORAL TABLET 1 tab by mouth twice daily with food AUGMENTIN 875-125 MG ORAL TABLET 474407 AMOXICIL MADELINE-POT CLAVULANATE Inactive CHERATUSSIN AC 100-10 MG/5ML ORAL SYRUP take one tsp po Q 6h ours prn cough CHERATUSSIN AC 100-10 MG/5ML ORAL SYRUP 114136 GUAIFENESIN-CODEINE Inactive PROPRANOLOL HCL 60 MG ORAL TABLET 1 PO Q D PROPRANOLOL HCL 60 MG ORAL TABLET 993637 PROPRANOLOL HCL Inactive TOPAMAX 50 MG ORAL TABLET take 1 tab po BID for migraines. 07/02 TOPAMAX 50 MG ORAL TABLET 717816 TOPIRAMATE Inacti ve TOPAMAX 25 MG ORAL TABLET 1 qHS x 1 week, then 1 BID x 1 week, then 1 qAM and 2 qHS x 1 week, then 2 BID (migraine prevention) TOPAMAX 25 MG ORAL TABLET 332276 TOPIRAMATE Inactive LYRICA 75 MG ORAL CAPSULE TAKE 1 CAPSULE BY MOUTH TWICE DAILY LYRICA 75 MG ORAL CAPSULE PREGABALIN Inactive SYMBICORT 160-4.5 MCG/ACT INHALATION AEROSOL 2 puffs bid wit h rinse after SYMBICORT 160-4.5 MCG/ACT INHALATION AEROSOL BUDESONIDE- FORMOTEROL FUMARATE Inactive PROMETHAZINE-CODEINE 6.25-10 MG/5ML ORAL SYRUP 1 tsp b y mouth every 8 hours prn cough PROMETHAZINE-CODEINE 6.25-10 MG/ 5ML ORAL SYRUP 831834 PROMETHAZINE-CODEINE Inactive CYMBALTA 30 MG ORAL CAPSULE DELAYED RELEASE PARTICLES 1 cap by mouth daily CYMBALTA 30 MG ORAL CAPSULE DELAYED RELE ASE PARTICLES 054417 DULOXETINE HCL Inactive PREMARIN 0.625 MG ORAL TABLET TAKE 1 TAB BY MOUTH DAILY PREMARIN 0.625 MG ORAL TABLET ESTROGENS CONJUGATED Inactive CHERATUSSIN AC 100-10 MG/5ML ORAL SYRUP 1 tsp by mouth every 4 hours as needed for cough CHERATUSSIN AC 100-10 MG/5ML ORAL SYRUP 9 78255 GUAIFENESIN-CODEINE Inactive PROMETHAZINE-CODEINE 6.25-10 MG/5ML ORAL SYRUP 1 tsp b y mouth every 6 hours if needed for cough PROMETHAZINE-CODEINE 6.25-10 MG/5ML ORAL SYRUP 606472 PROMETHAZINE-CODEINE Inactive CHERATUSSIN AC 100-10 MG/5ML ORAL SYRUP 1 tsp by mouth every 4 hours as needed for cough CHERATUSSIN AC 100-10 MG/5ML ORAL SYRUP 9 73685 GUAIFENESIN-CODEINE Inactive FLUTICASONE PROPIONATE 50 MCG/ACT NASAL SUSPENSION 1 t o 2 sprays each nostril daily FLUTICASONE PROPIONATE 50 MCG/AC T NASAL SUSPENSION 2833324 FLUTICASONE PROPIONATE Inactive PREDNISONE 20 MG ORAL TABLET 3 tab PO qd x 2d, 2 tab P O qd x 2d, 1 tab PO qd x 2d, 1/2 tab PO qd x 2d PREDNISONE 20 MG ORAL TAB LET 341741 PREDNISONE Inactive LEVOFLOXACIN 500 MG ORAL TABLET 1 tab PO daily x 10 days LEVOFLOXACIN 500 MG ORAL TABLET 425554 LEVOFLOXACIN Inactive CYCLOBENZAPRINE HCL 10 MG ORAL TABLET 1 tablet by mouth BID prn had pain CYCLOBENZAPRINE HCL 10 MG ORAL TABLET 766451 CYCLOBENZAPRINE HCL Inactive ZOCOR 40 MG ORAL TABLET 1 tab by mouth daily 4 ZOCOR 40 MG ORAL TABLET 878610 SIMVASTATIN Inactive TUSSIONEX PENNKINETIC ER 10-8 MG/5ML [...] FLUTICASONE PROPIO EFE 50 MCG/ACT NASAL SUSPENSION 7223208 FLUTICASONE PROPIONATE Inactive TUSSIONEX PENNKINETIC ER 10-8 [...] ays ZITHROMAX Z-REYNA 250 MG ORAL TABLET 116474 AZITHROMYCIN Inactive CEFDINIR 300 MG ORAL CAPSULE by mouth twice a day 2010 CEFDINIR 300 MG ORAL CAPSULE 716694 CEFDINIR Inactive CEFDINIR 300 MG ORAL CAPSULE by mouth twice a day 2010 CEFDINIR 300 MG ORAL CAPSULE 937905 CEFDINIR Inactive CEFDINIR 300 MG ORAL CAPSULE by mouth twice a day 2010 CEFDINIR 300 MG ORAL CAPSULE 888268 CEFDINIR Inactive CEFDINIR 300 MG ORAL CAPSULE by mouth twice a day 2011 CEFDINIR 300 MG ORAL CAPSULE 244797 CEFDINIR Inactive ZITHROMAX 250 MG ORAL TABLET 2 po today, then 1 po q days 2-5 03/07/07 ZITHROMAX 250 MG ORAL TABLET 993728 AZITHROMYCIN [place] ctive CEFDINIR 300 MG ORAL CAPSULE by mouth twice a day 2011 CEFDINIR 300 MG ORAL CAPSULE 20020704 CEFDINIR Inactive PREDNISONE 20 MG ORAL TABLET 2 tabs daily for 3 days, 1 tab daily for 3 days, 1/2 tab daily for 2 days PREDNISONE 20 MG ORAL T ABLET 890988 PREDNISONE Inactive AVELOX 400 MG ORAL TABLET 1 tab by mouth daily AVELOX 400 MG ORAL TABLET 181600 MOXIFLOXACIN HCL Inactive AVELOX 400 MG ORAL TABLET 1 tab by mouth daily AVELOX 400 MG ORAL TABLET 083759 MOXIFLOXACIN HCL Inactive PREDNISONE 20 MG ORAL TABLET Take 3 tabs daily for 3 d ays, 2 tabs daily for 3 days, 1 tab daily for 3 days, 1/2 tab daily for 3 days 11/07 PREDNISONE 20 MG ORAL TABLET 918425 PREDNISONE Inactive LEVAQUIN 500 MG ORAL TABLET take one po QD LEVAQUIN 500 MG ORAL TABLET 635547 LEVOFLOXACIN Inactive AZITHROMYCIN 250 MG ORAL TABLET 2 po qd x 1 day, then 1 po q d x 4 days AZITHROMYCIN 250 MG ORAL TABLET 065380 AZITHROMY GIOVANNI Inactive MEDROL 4 MG ORAL TABLET THERAPY PACK 6 tabs on day 1, 5 tabs on day 2, 4 tabs on day 3, 3 tabs on day 4, 2 tabs on day 5, 1 tab on day 6 2013 MEDROL 4 MG ORAL TABLET THERAPY PACK 513228 METHYLPREDNISOLONE [place] ctive CHERATUSSIN AC 100-10 MG/5ML ORAL SYRUP 5ml po q6hr PRN Cough 20 13/04/14 CHERATUSSIN AC 100-10 MG/5ML ORAL SYRUP 056924 GUAIFENE SIN-CODEINE Inactive TRIAMCINOLONE ACETONIDE 0.1 % EXTERNAL CREAM apply three roger es daily prn rash TRIAMCINOLONE ACETONIDE 0.1 % EXTERNAL CREAM 101 4314 TRIAMCINOLONE ACETONIDE Inactive AZITHROMYCIN 250 MG ORAL TABLET 2 po qd x 1 day, then 1 po q d x 4 days AZITHROMYCIN 250 MG ORAL TABLET 083602 AZITHROMY GIOVANNI Inactive MEDROL 4 MG ORAL TABLET THERAPY PACK 6 pills x 1 day, then 5 pills x 1 day then 4 pills x 1 day, then 3 pills x 1 day, then 2 pills x 1 day, then 1 pill x 1 day, then stop MEDROL 4 MG ORAL TABLET THERAPY PACK 779905 METHYLPREDNISOLONE Inactive AMOXICILLIN 500 MG ORAL CAPSULE 1 tab by mouth 3 times daily x 10 days AMOXICILLIN 500 MG ORAL CAPSULE 038884 AMOXICILL IN Inactive AMOXICILLIN 500 MG ORAL CAPSULE 1 tab by mouth 3 times daily x 10 days AMOXICILLIN 500 MG ORAL CAPSULE 429651 AMOXICILL IN Inactive ZITHROMAX 250 MG ORAL TABLET 2 po today, then 1 po q days 2-5 20 12/08/14 ZITHROMAX 250 MG ORAL TABLET 786141 AZITHROMYCIN [place] ctive AUGMENTIN 875-125 MG ORAL TABLET 1 po BID x 10 days 20 13/01/20 AUGMENTIN 875-125 MG ORAL TABLET 691005 AMOXICILLIN-POT CLAVULANATE Inactive ZITHROMAX Z-REYNA 250 MG ORAL TABLET 2 today, then 1 daily for 4 d ays ZITHROMAX Z-REYNA 250 MG ORAL TABLET 605138 AZITHROMYCIN Inactive ZITHROMAX 250 MG ORAL TABLET 2 po today, then 1 po q days 2-5 20 14/03/21 ZITHROMAX 250 MG ORAL TABLET 610157 AZITHROMYCIN [place] ctive ZITHROMAX Z-REYNA 250 MG ORAL TABLET 2 today, then 1 daily for 4 d ays ZITHROMAX Z-REYNA 250 MG ORAL TABLET 200595 AZITHROMYCIN Inactive CEFDINIR 300 MG ORAL CAPSULE 1 po BID x 10 days 06/21 CEFDINIR 300 MG ORAL CAPSULE 20020704 CEFDINIR Inactive ZITHROMAX 250 MG ORAL TABLET 2 po today, then 1 po q days 2-5 20 13/08/10 ZITHROMAX 250 MG ORAL TABLET 678716 AZITHROMYCIN [place] ctive LEVAQUIN 500 MG ORAL TABLET 1 tablet by mouth daily 20 13/09/24 LEVAQUIN 500 MG ORAL TABLET 19971102 LEVOFLOXACIN Inactive SINGULAIR 10 MG ORAL TABLET 1 po qday for allergies 20 14/01/12 SINGULAIR 10 MG ORAL TABLET 20010504 MONTELUKAST SODIUM Inactive AMOXICILLIN 500 MG ORAL CAPSULE 2 po BID x 10 days 201 09/29/08 AMOXICILLIN 500 MG ORAL CAPSULE 538743 AMOXICILLIN Inactive PREDNISONE 20 MG ORAL TABLET 2 tabs daily for 3 days, 1 tab daily for 3 days, 1/2 tab daily for 2 days PREDNISONE 20 MG ORAL T ABLET 421135 PREDNISONE Inactive ZITHROMAX Z-REYNA 250 MG ORAL TABLET 2 today, then 1 daily for 4 d ays ZITHROMAX Z-REYNA 250 MG ORAL TABLET 077854 AZITHROMYCIN Inactive PREDNISONE 20 MG ORAL TABLET 2 tabs daily for 3 days, 1 tab daily for 3 days, 1/2 tab daily for 2 days PREDNISONE 20 MG ORAL T ABLET 651273 PREDNISONE Inactive ZITHROMAX 250 MG ORAL TABLET 2 po today, then 1 po q days 2-5 14/09/04 ZITHROMAX 250 MG ORAL TABLET 396630 AZITHROMYCIN [place] ctive AMOXICILLIN 500 MG ORAL CAPSULE 1 cap by mouth three times a day AMOXICILLIN 500 MG ORAL CAPSULE 922285 AMOXICILLIN Inactive TERBINAFINE HCL 250 MG ORAL TABLET 1 qDay for nail fungus 7 TERBINAFINE HCL 250 MG ORAL TABLET 784581 TERBINAFINE HCL Inact nael AUGMENTIN 875-125 MG ORAL TABLET 1 po BID x 10 days 20 16/03/22 AUGMENTIN 875-125 MG ORAL TABLET 950508 AMOXICILLIN-POT CLAVULANATE Inactive Vital Signs Date Name [...] - Chem istry sodium, serum 132 mmol/L 011-246 4776/07/12 potassium, serum 2.7 mmol/L 3.5-5.2 chloride, serum 93 mmol/L 98-107 carbon dioxide, venous blood 30.8 mmol/L 21.0-32 .0 blood glucose 107 mg/dL 65-110 calcium, serum 9.3 mg/dL 8.5-10.1 urea nitrogen, blood 12 mg/dL 7-18 creatinine, serum 1.00 mg/dL 0.60-1.30 sodium, serum 142 mmol/L 255-423 2249/07/17 potassium, serum 4.2 mmol/L 3.5-5.2 chloride, serum 106 mmol/L 98-107 carbon dioxide, venous blood 29.9 mmol/L 21.0-32 .0 blood glucose 108 mg/dL 65-110 calcium, serum 9.1 mg/dL 8.5-10.1 urea nitrogen, blood 11 mg/dL 7-18 creatinine, serum 0.81 mg/dL 0.60-1.30 Lab Report: Rapid Strep - Lab Microbial identification kit, rapid strep method Negative Negative Encounters Code Encounter Date Provider Facility [id number] Level 3 Est. Patient 10:26:00 [employer] [facility] [facility] CPT-05072 Level 3 Est. Patient 13:35:41 [employer] Carlton rich MD [facility] CPT-98225 Level 3 Est. Patient 10:03:52 [employer] Carlton rich MD [facility] CPT-98084 Level 3 Est. Patient 12:17:50 CDT Hugo Restrepo MD [facility] CPT-95020 Level 3 Est. Patient 13:42:38 CDT Elise And chelly [facility] CPT-46498 Level 3 Est. Patient 13:23:51 CDT Diya cobian [facility] CPT-53639 Level 3 Est. Patient 14:22:19 [employer] Astridgreer Mariana cobian [facility] CPT-12922 Level 3 Est. Patient 10:11:46 CDT Carlton rich MD [facility] CPT-67205 Level 3 Est. Patient 17:29:43 CDT Elise And asaelon [facility] CPT-63048 Level 3 Est. Patient 11:58:06 [facility] 4 Est. Patient 14:36:51 CDT Carlton rich MD [facility]-88210 Level 3 Est. Patient 18:16:00 [employer] Blaine HERNANDEZ [facility] CPT-82846 Level 3 Est. Patient 09:45:49 [employer] Carlton rich MD [facility] CPT-42207 Level 3 Est. Patient 13:19:20 CDT Carlton rich MD [facility] CPT-60947 Level 3 Est. Patient 13:06:43 CDT Ridge tam DO [facility] CPT-56267 Level 3 Est. Patient 10:03:07 CDT Perez Mora MD [facility] CPT-62866 Level 3 Est. Patient 19:50:35 [employer] Carlton rich MD [facility] CPT-08097 Level 4 Est. Patient 18:05:01 [employer] Carlton rich MD [facility] CPT-89538 Level 3 Est. Patient 10:45:55 [employer] Hugo Restrepo MD [facility] CPT-86029 Level 3 Est. Patient 14:12:49 CDT Griffin HERNANDEZ [facility] CPT-33601 Level 3 Est. Patient 17:37:24 CDT Carlton rich MD [facility] CPT-87561 Level 3 Est. Patient 16:51:54 CDT Carlton rich MD [facility] CPT-58682 Level 3 Est. Patient 12:18:11 CDT Hugo Restrepo MD [facility] CPT-72287 Level 3 Est. Patient 11:30:25 CDT Marcy crisostomo MD PhD [facility] CPT-99155 Level 3 Est. Patient 12:00:47 [employer] Carlton rich MD [facility] CPT-15076 Level 3 Est. Patient 16:31:06 [employer] Carlton rich MD [facility] CPT-39132 Level 3 Est. Patient 16:23:24 [employer] Ridge tam DO [facility] CPT-54777 Level 3 Est. Patient 12:34:12 CDT Carlton rich MD [facility] CPT-41650 Level 2 Est. Patient 15:43:33 CDT Robi armstrong MD [facility] CPT-25842 Level 4 Est. Patient 14:04:44 CDT Carlton rich MD [facility] CPT-55576 Level 3 Est. Patient 05:47:59 CDT Ridge tam [facility] CPT-01122 Level 3 Est. Patient 13:12:53 [employer] Carlton rich MD [facility] CPT-09066 Level 3 Est. Patient 14:26:53 CDT Hugo [...] CPT-J1100 Decadron 6mg (Dexamethasone) 14:32:13 CDT 2 CPT-21735 Hip bilat min 2V w AP pelvis 13:16:20 CDT 2 CPT-28224 Pelvis only 13:07:33 CDT CPT-13175 Spec Collection and Handling Fee 11:25:12 C DT CPT-05587 Fluzone Quadrivalent Intramuscular Suspe nsion 0.5 ML 14:31:55 CDT CPT-95572 Abx/Therapy Injection 13:28:47 [employer] CPT-J2930 Solu Medrol 125 mg (Methyl Prednisolone Sodium Succinate) 12:00:47 [employer] CPT-05845 Venipuncture Draw Fee 11:33:31 CDT CPT-18283 EKG Trac and Interp 11:21:09 CDT CPT-29025 Chest 2V Frontal and Lat 11:21:09 CDT 12/15 CPT-57846 Venipuncture Draw Fee 08:02:34 CDT CPT-53880 Chest 2V Frontal and Lat 05:47:59 CDT 06/05
--- OUTSIDE RECORDS SUMMARY | 2019-10-08 10:14 | XMS REPORT | Clinical Summary ---
Author Author Caitlin, Juliana Martinez Organization [facility] Address Unknown Phone Unavailable Allergies, Adverse [...] PRN Cough 20 14/09/04 HYDROCOD POLST-CHLORPHEN POLST 19433197940 Active Elise Whitmore APRN Active ZITHROMAX 250 MG TAB 2 po today, then 1 po q days 2-5 AZITHROMYCIN 86875574864 No Longer Active Elise Whitmore APRN Acti ve TUSSIONEX PENNKINETIC ER 10-8 MG/5ML LQCR 5 ml twice a day a s needed for cough HYDROCOD POLST-CHLORPHEN POLST 38921254318 N o Longer Active Elise Whitmore APRN Active MONTELUKAST SODIUM 10 MG ORAL TABS 1 po daily for Allergy 6 MONTELUKAST SODIUM 44019711740 Active ALFREDO Holly Act nael TUSSIONEX PENNKINETIC ER 10-8 MG/5ML LQCR 5ml po q12hr PRN Cough HYDROCOD POLST-CHLORPHEN POLST 57840050087 No Longer Active Hugo Restrepo MD Active GABAPENTIN 100 MG CAPS 1 po BID for fibromyalgia GABAPENTIN 78884026548 Active Elise Whitmore APRN Active LYRICA 100 MG CAPS Take 1 tab po BID for fibromyalgia PREGABALIN 13321611238 No Longer Active Elise Whitmore APRN Acti ve PROAIR HFA 108 (90 BASE) MCG/ACT AERS 2 puffs four times a d ay as needed ALBUTEROL SULFATE 27852102750 Active Elise Whitmore APRN Active MUCINEX DM MAXIMUM STRENGTH 60-1200 MG [id number] 1 tab po q am 2016 DEXTROMETHORPHAN-GUAIFENESIN 91605050091 Active Jillina Cesarl IMMIGRATION JUDGE Active PREDNISONE 20 MG TAB 2 tabs daily for 3 days, 1 t ab daily for 3 days, 1/2 tab daily for 2 days PREDNISONE 60845739835 No Longer Active Jillina Cesarl IMMIGRATION JUDGE Active TUSSIONEX PENNKINETIC ER 10-8 MG/5ML ORAL LQCR 5 mL PO q 12 hrs PRN cough HYDROCOD POLST-CHLORPHEN POLST 24771421998 No Longer Active Jillina Frazell IMMIGRATION JUDGE Active FLUTICASONE PROPIONATE 50 MCG/ACT SUSP 2 sprays each n ostril daily until bottle is empty FLUTICASONE PROPIONATE 18875728874 No Longer Ac tive Jillina Frazell IMMIGRATION JUDGE Active ASMANEX 60 METERED DOSES 220 MCG/INH AEPB 1 puff bid with ri nse after MOMETASONE FUROATE 46346585975 No Longer Active Venullina Darlin ell IMMIGRATION JUDGE Active ZITHROMAX Z-REYNA 250 MG TABS 2 today, then 1 daily for 4 days 201 09/29/14 AZITHROMYCIN 60234359068 No Longer Active Elise Whitmore APRN Active TUSSIONEX PENNKINETIC ER 10-8 MG/5ML LQCR 5ml po q12hr PRN Cough HYDROCOD POLST-CHLORPHEN POLST 10152055029 No Longer Active Elise Whitmore IMMIGRATION JUDGE Active MUCINEX D 60-600 MG [id number] 1 tab po q am PSEUDOEPHEDRINE-GUAIFENESIN 62859231171 Active Jillina Frazell IMMIGRATION JUDGE Active PREDNISONE 20 MG TAB 2 tabs daily for 3 days, 1 t ab daily for 3 days, 1/2 tab daily for 2 days PREDNISONE 84267094324 No Longer Active Jillina Frazell IMMIGRATION JUDGE Active AMOXICILLIN 500 MG CAPS 2 po BID x 10 days AMOX ICILLIN 12525608819 No Longer Active Jillina Frazell IMMIGRATION JUDGE Active SINGULAIR 10 MG TABS 1 po qday for allergies 2 MONTELUKAST SODIUM 52908685615 No Longer Active Carlton Hu MD Acti ve LEVAQUIN 500 MG TAB 1 tablet by mouth daily LEV OFLOXACIN 93746008775 No Longer Active Carlton Hu MD Active FLUTICASONE PROPIONATE 50 MCG/ACT SUSP 2 sprays each n ostril daily for 2 weeks, then 1 spray each nostril daily. FLUTICASONE PRO PIONATE 73488321652 Active Elise Whitmore APRN Active ZITHROMAX 250 MG TAB 2 po today, then 1 po q days 2-5 AZITHROMYCIN 90012151777 No Longer Active Elise Whitmore APRN Acti ve XANAX 0.5 MG TABS one tablet by mouth daily prn anxiety ALPRAZOLAM 59418343766 Active Elise Whitmore APRN Active CYMBALTA 30 MG CPEP 1 cap by mouth daily for depression DULOXETINE HCL 02534153836 Active Carlton Hu MD Active CEFDINIR 300 MG CAPS 1 po BID x 10 days CEFDINI R 02330622404 No Longer Active Carlton Hu MD Active ZOCOR 40 MG TAB 1 tab by mouth daily SIMVASTATI N 96539894489 No Longer Active Carlton Hu MD Active CYCLOBENZAPRINE HCL 10 MG TABS 1 tablet by mouth BID prn had cherelle n CYCLOBENZAPRINE HCL 15125839736 No Longer Active Carlton Hu MD Active LEVOFLOXACIN 500 MG ORAL TABS 1 tab PO daily x 10 days LEVOFLOXACIN 65662234499 No Longer Active Carlton Hu MD Acti ve PREDNISONE 20 MG ORAL TABS 3 tab PO qd x 2d, 2 tab PO qd x 2d, 1 tab PO qd x 2d, 1/2 tab PO qd x 2d PREDNISONE 87435248540 No Longer Active Carlton Hu MD Active FLUTICASONE PROPIONATE 50 MCG/ACT SUSP 1 to 2 sprays each no stril daily FLUTICASONE PROPIONATE 66649744156 No Longer Active T jaz HERNANDEZ Active CHERATUSSIN AC 100-10 MG/5ML SYRP 1 tsp by mouth every 4 hours as needed for cough GUAIFENESIN-CODEINE 95912508068 No Longer Activ e Blaine HERNANDEZ Active PROMETHAZINE-CODEINE 6.25-10 MG/5ML SYRP 1 tsp by mout h every 6 hours if needed for cough PROMETHAZINE-CODEINE 77481311679 No Long er Active Blaine HERNANDEZ Active CHERATUSSIN AC 100-10 MG/5ML SYRP 1 tsp by mouth every 4 hours as needed for cough GUAIFENESIN-CODEINE 48711146340 No Longer Activ e Blaine HERNANDEZ Active ZITHROMAX Z-REYNA 250 MG TABS 2 today, then 1 daily for 4 days 201 08/30/03 AZITHROMYCIN 10748821529 No Longer Active Columba Raida Act nael ZITHROMAX 250 MG TAB 2 po today, then 1 po q days 2-5 AZITHROMYCIN 77056583349 No Longer Active Carlton Hu MD Acti ve ZITHROMAX Z-REYNA 250 MG TABS 2 today, then 1 daily for 4 days 201 08/07/20 AZITHROMYCIN 80028133833 No Longer Active Columba Raida Act nael AUGMENTIN 875-125 MG TAB 1 po BID x 10 days AMOXICILLIN- POT CLAVULANATE 03002453652 No Longer Active Jillina Gege RICEN Active ZITHROMAX 250 MG TAB 2 po today, then 1 po q days 2-5 AZITHROMYCIN 30581420142 No Longer Active Carlton Hu MD Acti ve TRAMADOL HCL 50 MG TABS 1 po tid with ES Tylenol TRAMADOL HCL 50898183041 Active Carlton Hu MD Active PREMARIN 0.625 MG TABS TAKE 1 TAB BY MOUTH DAILY 07/25 ESTROGENS CONJUGATED 83885751018 No Longer Active Ridge Bess DO Active CYMBALTA 30 MG CPEP 1 cap by mouth daily DULOXE SNEHA HCL 83087874314 No Longer Active Ridge Bess DO Active AMOXICILLIN 500 MG CAP 1 tab by mouth 3 times daily x 10 days 20 14/04/28 AMOXICILLIN 09043870565 No Longer Active Carlton Hu MD Active AMOXICILLIN 500 MG CAP 1 tab by mouth 3 times daily x 10 days 20 13/03/08 AMOXICILLIN 64127473620 No Longer Active Carlton Hu MD Active PROMETHAZINE-CODEINE 6.25-10 MG/5ML SYRP 1 tsp by mouth ever y 8 hours prn cough PROMETHAZINE-CODEINE 77537213809 No Longer Active Robert Hu MD Active MEDROL (REYNA) 4 MG TABS 6 pills x 1 day, then 5 pill s x 1 day then 4 pills x 1 day, then 3 pills x 1 day, then 2 pills x 1 day, then 1 pill x 1 day, then stop METHYLPREDNISOLONE 84601565620 No Longer Active Parris Mora MD Active AZITHROMYCIN 250 MG TABS 2 po qd x 1 day, then 1 po qd x 4 days AZITHROMYCIN 21121505824 No Longer Active Perez Moar MD Active SYMBICORT 160-4.5 MCG/ACT AERO 2 puffs bid with rinse after 2011 BUDESONIDE-FORMOTEROL FUMARATE 60900681751 No Longer Active Perez Mora MD Active LYRICA 75 MG CAPS TAKE 1 CAPSULE BY MOUTH TWICE DAILY 2013 PREGABALIN 57927831386 No Longer Active Carlton Hu MD Active TOPAMAX 25 MG TABS 1 qHS x 1 week, then 1 BID x 1 week, then 1 qAM and 2 qHS x 1 week, then 2 BID (migraine prevention) TOPIRAMAT E 92438214905 No Longer Active Jerica FUENTES Active TOPAMAX 50 MG TABS take 1 tab po BID for migraines. 12/07/10 TOPIRAMATE 22145115852 No Longer Active Jerica FUENTES Ac tive TOPAMAX 100 MG TABS Take 1 tablet po bid TOPIRAMATE 4999 0997668 Active Elise Whitmore APRN Active TRIAMCINOLONE ACETONIDE 0.1 % CREA apply three times daily prn r beatrice TRIAMCINOLONE ACETONIDE 38588378516 No Longer Active Carlton Hu MD Active PAXIL 40 MG TAB take 1 tab po qday for depression PAROXETINE HCL 34214510153 Active Elise Whitmore APRN Active CHERATUSSIN AC 100-10 MG/5ML SYRP 5ml po q6hr PRN Cough GUAIFENESIN-CODEINE 49489353116 No Longer Active Carlton Hu MD Active MEDROL (REYNA) 4 MG TABS 6 tabs on day 1, 5 tabs on d ay 2, 4 tabs on day 3, 3 tabs on day 4, 2 tabs on day 5, 1 tab on day 6 METHYLPREDNISOLONE 86109666548 No Longer Active Perez Mora MD Active AZITHROMYCIN 250 MG TABS 2 po qd x 1 day, then 1 po qd x 4 days AZITHROMYCIN 34068584409 No Longer Active Perez Mora MD Active PROPRANOLOL HCL 60 MG TABS 1 PO Q D PROPRANOL OL HCL 61353259520 No Longer Active Perez Mora MD Active CHERATUSSIN AC 100-10 MG/5ML SYRP take one tsp po Q 6hours prn c ough GUAIFENESIN-CODEINE 96720327773 No Longer Active Perez Means Active AUGMENTIN 875-125 MG TAB 1 tab by mouth twice daily with food 12/03/31 AMOXICILLIN-POT CLAVULANATE 67329481168 No Longer Active Chanel Mora MD Active CHERATUSSIN AC 100-10 MG/5ML SYRP 1 tsp by mouth every 4 hours as needed for cough GUAIFENESIN-CODEINE 26466148858 No Longer Activ e Hugo Restrepo MD Active ACETAMINOPHEN-CODEINE #3 300-30 MG TABS 1 PO Q 4-6 HRS PRN PAIN ACETAMINOPHEN-CODEINE 76944115169 No Longer Active Hugo Restrepo MD Active LEVAQUIN 500 MG TABS take one po QD LEVOFLOXACI N 49207743627 No Longer Active Griffin HERNANDEZ Active PREDNISONE 20 MG TAB Take 3 tabs daily for 3 days , 2 tabs daily for 3 days, 1 tab daily for 3 days, 1/2 tab daily for 3 days P REDNISONE 01004464011 No Longer Active Carlton Hu MD Active AVELOX 400 MG TABS 1 tab by mouth daily MOXIFLO XACIN HCL 13821128605 No Longer Active Carlton Hu MD Active CHERATUSSIN AC 100-10 MG/5ML SYRP 1 tsp by mouth every 4 hours as needed for cough GUAIFENESIN-CODEINE 35743082707 No Longer Activ e Hugo Restrepo MD Active AVELOX 400 MG TABS 1 tab by mouth daily MOXIFLO XACIN HCL 11483656618 No Longer Active Marcy De La Rosa MD PhD Active TERBINAFINE HCL 250 MG TABS 1 qDay TERBINAF INE HCL 54982239099 No Longer Active Marcy De La Rosa MD PhD Active CHERATUSSIN AC 100-10 MG/5ML SYRP 1 tsp by mouth every 4 hours as needed for cough GUAIFENESIN-CODEINE 53181585187 No Longer Activ e Marcy De La Rosa MD PhD Active AVELOX 400 MG TABS 1 tab by mouth daily MOXIFLO XACIN HCL 00200130520 No Longer Active Marcy De La Rosa MD PhD Active HYDROCODONE-ACETAMINOPHEN 5-325 MG TABS 1 po q 6hr PRN cough 201 05/09/16 HYDROCODONE-ACETAMINOPHEN 40137121301 No Longer Active Marcy De La Rosa MD PhD Active PREDNISONE 20 MG TAB 2 tabs daily for 3 days, 1 t ab daily for 3 days, 1/2 tab daily for 2 days PREDNISONE 54928923491 No Longer Active Carlton Hu MD Active CEFDINIR 300 MG CAPS by mouth twice a day CEFDI ODILIA 29346092560 No Longer Active Carlton Hu MD Active HYDROCHLOROTHIAZIDE 25 MG TABS 1 TAB PO DAILY H YDROCHLOROTHIAZIDE 36068661526 Active Carlton Hu MD Active ACETAMINOPHEN-CODEINE #3 300-30 MG TABS 1 tablet po q 4-6hrs prn pain ACETAMINOPHEN-CODEINE 86523391225 No Longer Active Ridge Bess DO Active ZITHROMAX 250 MG TAB 2 po today, then 1 po q days 2-5 AZITHROMYCIN 32201072642 No Longer Active Carlton Hu MD Acti ve CHERATUSSIN AC 100-10 MG/5ML SYRP take 1 tsp po q4-6 hours prn c ough GUAIFENESIN-CODEINE 78662262532 No Longer Active Carlton Hu MD Active ACETAMINOPHEN-CODEINE #3 300-30 MG TABS 1 PO Q 4-6 HR PRN PAIN 2 ACETAMINOPHEN-CODEINE 01625776804 No Longer Active Carlton rich MD Active LORTAB 7.5-500 MG/15ML ELIX 7.5 ml po q 4 hour prn cough HYDROCODONE-ACETAMINOPHEN 57929726865 No Longer Active Carlton Hu MD Active PREDNISONE 20 MG TAB 1 po bid 3 days, then 1 po q day 3 days 201 05/03/07 PREDNISONE 48961456439 No Longer Active Carlton Hu MD Active ELMIRON 100 MG CAPS 2 tablets in the am and 1 tablet at hs PENTOSAN POLYSULFATE SODIUM 01049096921 Active Carlton Hu MD Ac tive CEFDINIR 300 MG CAPS by mouth twice a day CEFDI ODILIA 37803905303 No Longer Active Carlton Hu MD Active CEFDINIR 300 MG CAPS by mouth twice a day CEFDI ODILIA 27589850632 No Longer Active Carlton Hu MD Active CEFDINIR 300 MG CAPS by mouth twice a day CEFDI ODILIA 14890784028 No Longer Active Carlton Hu MD Active TESSALON PERLES 100 MG CAP 1 tablet by mouth 3 times daily a s needed for cough BENZONATATE 48112270807 No Longer Active Carlton bustamante MD Active CEFDINIR 300 MG CAPS by mouth twice a day CEFDI ODILIA 63732082306 No Longer Active Carlton Hu MD Active ZITHROMAX Z-REYAN 250 MG TABS 2 today, then 1 daily for 4 days 201 04/09/17 AZITHROMYCIN 07631499104 No Longer Active Hugo Restrepo MD Active TESSALON PERLES 100 MG CAP 1 tablet by mouth 3 times daily a s needed for cough TESSALON PERLES 100 MG CAP 808844 BENZONATATE I nactive PREDNISONE 20 MG TAB 1 po bid 3 days, then 1 po q day 3 days 201 05/03/07 PREDNISONE 20 MG TAB 767495 PREDNISONE Inactive LORTAB 7.5-500 MG/15ML ELIX 7.5 ml po q 4 hour prn cough LORTAB 7.5-500 MG/15ML ELIX HYDROCODONE-ACETAMINOPHEN Inacti ve ACETAMINOPHEN-CODEINE #3 300-30 MG TABS 1 PO Q 4-6 HR PRN PAIN 2 ACETAMINOPHEN-CODEINE #3 300-30 MG TABS ACETAMIN OPHEN-CODEINE Inactive CHERATUSSIN AC 100-10 MG/5ML SYRP take 1 tsp po q4-6 hours prn c ough CHERATUSSIN AC 100-10 MG/5ML SYRP 827787 GUAIFENESIN-CO DEINE Inactive ACETAMINOPHEN-CODEINE #3 300-30 MG TABS 1 tablet po q 4-6hrs prn pain ACETAMINOPHEN-CODEINE #3 300-30 MG TABS ACETAMIN OPHEN-CODEINE Inactive HYDROCODONE-ACETAMINOPHEN 5-325 MG TABS 1 po q 6hr PRN cough 201 05/09/16 HYDROCODONE-ACETAMINOPHEN 5-325 MG TABS 637613 HYDROCODONE-ACETAMINOPHEN Inactive AVELOX 400 MG TABS 1 tab by mouth daily A VELOX 400 MG TABS 563899 MOXIFLOXACIN HCL Inactive CHERATUSSIN AC 100-10 MG/5ML SYRP 1 tsp by mouth every 4 hours as needed for cough CHERATUSSIN AC 100-10 MG/5ML SYRP 615144 GUAIFENESIN-CODEINE Inactive TERBINAFINE HCL 250 MG TABS 1 qDay TERBINAFINE HCL 250 MG TABS 127601 TERBINAFINE HCL Inactive CHERATUSSIN AC 100-10 MG/5ML SYRP 1 tsp by mouth every 4 hours as needed for cough CHERATUSSIN AC 100-10 MG/5ML SYRP 695335 GUAIFENESIN-CODEINE Inactive ACETAMINOPHEN-CODEINE #3 300-30 MG TABS 1 PO Q 4-6 HRS PRN PAIN ACETAMINOPHEN-CODEINE #3 300-30 MG TABS ACETAMINOPHEN-CODEIN E Inactive CHERATUSSIN AC 100-10 MG/5ML SYRP 1 tsp by mouth every 4 hours as needed for cough CHERATUSSIN AC 100-10 MG/5ML SYRP 642528 GUAIFENESIN-CODEINE Inactive AUGMENTIN 875-125 MG TAB 1 tab by mouth twice daily with food 20 12/03/31 AUGMENTIN 875-125 MG TAB 626456 AMOXICILLIN-POT CLAVULA EFE Inactive CHERATUSSIN AC 100-10 MG/5ML SYRP take one tsp po Q 6hours prn c ough CHERATUSSIN AC 100-10 MG/5ML SYRP 339175 GUAIFENESIN-CO DEINE Inactive PROPRANOLOL HCL 60 MG TABS 1 PO Q D P ROPRANOLOL HCL 60 MG TABS 929474 PROPRANOLOL HCL Inactive TOPAMAX 50 MG TABS take 1 tab po BID for migraines. 12/07/10 TOPAMAX 50 MG TABS 914818 TOPIRAMATE Inactive TOPAMAX 25 MG TABS 1 qHS x 1 week, then 1 BID x 1 week, then 1 qAM and 2 qHS x 1 week, then 2 BID (migraine prevention) TOPAMAX 2 5 MG TABS 593911 TOPIRAMATE Inactive LYRICA 75 MG CAPS TAKE 1 CAPSULE BY MOUTH TWICE DAILY LYRICA 75 MG CAPS PREGABALIN Inactive SYMBICORT 160-4.5 MCG/ACT AERO 2 puffs bid with rinse after 2011 SYMBICORT 160-4.5 MCG/ACT AERO BUDESONIDE-FORMOT SÁNCHEZ FUMARATE Inactive PROMETHAZINE-CODEINE 6.25-10 MG/5ML SYRP 1 tsp by mouth ever y 8 hours prn cough PROMETHAZINE-CODEINE 6.25-10 MG/5ML SYRP 997000 PROMETHAZINE-CODEINE Inactive CYMBALTA 30 MG CPEP 1 cap by mouth daily CYMBALTA 30 MG CPEP 622989 DULOXETINE HCL Inactive PREMARIN 0.625 MG TABS TAKE 1 TAB BY MOUTH DAILY 07/25 PREMARIN 0.625 MG TABS ESTROGENS CONJUGATED Inactive CHERATUSSIN AC 100-10 MG/5ML SYRP 1 tsp by mouth every 4 hours as needed for cough CHERATUSSIN AC 100-10 MG/5ML SYRP 093282 GUAIFENESIN-CODEINE Inactive PROMETHAZINE-CODEINE 6.25-10 MG/5ML SYRP 1 tsp by mout h every 6 hours if needed for cough PROMETHAZINE-CODEINE 6.25-10 MG/5ML SYRP 425975 PROMETHAZINE-CODEINE Inactive CHERATUSSIN AC 100-10 MG/5ML SYRP 1 tsp by mouth every 4 hours as needed for cough CHERATUSSIN AC 100-10 MG/5ML SYRP 542494 GUAIFENESIN-CODEINE Inactive FLUTICASONE PROPIONATE 50 MCG/ACT SUSP 1 to 2 sprays each no stril daily FLUTICASONE PROPIONATE 50 MCG/ACT SUSP 2725960 FLUTICASONE PROPIONATE Inactive PREDNISONE 20 MG ORAL TABS 3 tab PO qd x 2d, 2 tab PO qd x 2d, 1 tab PO qd x 2d, 1/2 tab PO qd x 2d PREDNISONE 20 MG ORAL TABS 128978 PREDNISONE Inactive LEVOFLOXACIN 500 MG ORAL TABS 1 tab PO daily x 10 days LEVOFLOXACIN 500 MG ORAL TABS 010971 LEVOFLOXACIN Inactive CYCLOBENZAPRINE HCL 10 MG TABS 1 tablet by mouth BID prn had cherelle n CYCLOBENZAPRINE HCL 10 MG TABS 762525 CYCLOBENZAPRINE H CL Inactive ZOCOR 40 MG TAB 1 tab by mouth daily ZOCOR 40 M G TAB 488826 SIMVASTATIN Inactive TUSSIONEX PENNKINETIC ER 10-8 MG/5ML [...] empty FLUTICASONE PROPIONATE 50 MCG/ACT SUSP 17 48331 FLUTICASONE PROPIONATE Inactive TUSSIONEX PENNKINETIC ER 10-8 [...] 201 04/09/17 ZITHROMAX Z-REYNA 250 MG TABS 0559777 AZITHROMYCIN Inac tive CEFDINIR 300 MG CAPS [...] q days 2-5 ZITHROMAX 250 MG TAB 5996884 AZITHROMYCIN Inactive CEFDINIR 300 MG CAPS by mouth twice a day CEFDINIR 300 MG CAPS 20020704 CEFDINIR Inactive PREDNISONE 20 MG TAB 2 tabs daily for 3 days, 1 t ab daily for 3 days, 1/2 tab daily for 2 days PREDNISONE 20 MG TAB 821659 PREDNISON E Inactive AVELOX 400 MG TABS 1 tab by mouth daily A VELOX 400 MG TABS 205039 MOXIFLOXACIN HCL Inactive AVELOX 400 MG TABS 1 tab by mouth daily A VELOX 400 MG TABS 320418 MOXIFLOXACIN HCL Inactive PREDNISONE 20 MG TAB Take 3 tabs daily for 3 days , 2 tabs daily for 3 days, 1 tab daily for 3 days, 1/2 tab daily for 3 days PREDNISONE 20 MG TAB 553794 PREDNISONE Inactive LEVAQUIN 500 MG TABS take one po QD LEVAQUIN 50 0 MG TABS 221083 LEVOFLOXACIN Inactive AZITHROMYCIN 250 MG TABS 2 po qd x 1 day, then 1 po qd x 4 days AZITHROMYCIN 250 MG TABS 3526962 AZITHROMYCIN Inactiv e MEDROL (REYNA) 4 MG TABS 6 tabs on day 1, 5 tabs on d ay 2, 4 tabs on day 3, 3 tabs on day 4, 2 tabs on day 5, 1 tab on day 6 MEDROL (REYNA) 4 MG TABS 595777 METHYLPREDNISOLONE Inactive CHERATUSSIN AC 100-10 MG/5ML SYRP 5ml po q6hr PRN Cough CHERATUSSIN AC 100-10 MG/5ML SYRP 023977 GUAIFENESIN-CODEINE Inacti ve TRIAMCINOLONE ACETONIDE 0.1 % CREA apply three times daily prn r beatrice TRIAMCINOLONE ACETONIDE 0.1 % CREA 0189156 TRIAMCINOLONE ACETONIDE Inactive AZITHROMYCIN 250 MG TABS 2 po qd x 1 day, then 1 po qd x 4 days AZITHROMYCIN 250 MG TABS 3234107 AZITHROMYCIN Inactiv e MEDROL (REYNA) 4 MG TABS 6 pills x 1 day, then 5 pill s x 1 day then 4 pills x 1 day, then 3 pills x 1 day, then 2 pills x 1 day, then 1 pill x 1 day, then stop MEDROL (REYNA) 4 MG TABS 322306 METHYLPREDNISOLONE Inactive AMOXICILLIN 500 MG CAP 1 tab by mouth 3 times daily x 10 days 20 13/03/08 AMOXICILLIN 500 MG CAP 356177 AMOXICILLIN Inactive AMOXICILLIN 500 MG CAP 1 tab by mouth 3 times daily x 10 days 20 14/04/28 AMOXICILLIN 500 MG CAP 103160 AMOXICILLIN Inactive ZITHROMAX 250 MG TAB 2 po today, then 1 po q days 2-5 ZITHROMAX 250 MG TAB 3176722 AZITHROMYCIN Inactive AUGMENTIN 875-125 MG TAB 1 po BID x 10 days AUGMENTIN 875- 125 MG TAB 801600 AMOXICILLIN-POT CLAVULANATE Inactive ZITHROMAX Z-REYNA 250 MG TABS 2 today, then 1 daily for 4 days 201 08/07/20 ZITHROMAX Z-REYNA 250 MG TABS 0794579 AZITHROMYCIN Inac tive ZITHROMAX 250 MG TAB 2 po today, then 1 po q days 2-5 ZITHROMAX 250 MG TAB 6086227 AZITHROMYCIN Inactive ZITHROMAX Z-REYNA 250 MG TABS 2 today, then 1 daily for 4 days 201 08/30/03 ZITHROMAX Z-REYNA 250 MG TABS 1587147 AZITHROMYCIN Inac tive CEFDINIR 300 MG CAPS 1 po BID x 10 days C EFDINIR 300 MG CAPS 20020704 CEFDINIR Inactive ZITHROMAX 250 MG TAB 2 po today, then 1 po q days 2-5 ZITHROMAX 250 MG TAB 2180756 AZITHROMYCIN Inactive LEVAQUIN 500 MG TAB 1 tablet by mouth daily LEVAQUIN 500 MG TAB 281244 LEVOFLOXACIN Inactive SINGULAIR 10 MG TABS 1 po qday for allergies 2 SINGULAIR 10 MG TABS 20010504 MONTELUKAST SODIUM Inactive AMOXICILLIN 500 MG CAPS 2 po BID x 10 days AMOXICILLIN 500 MG CAPS 946023 AMOXICILLIN Inactive PREDNISONE 20 MG TAB 2 tabs daily for 3 days, 1 t ab daily for 3 days, 1/2 tab daily for 2 days PREDNISONE 20 MG TAB 829435 PREDNISON E Inactive ZITHROMAX Z-REYNA 250 MG TABS 2 today, then 1 daily for 4 days 201 09/29/14 ZITHROMAX Z-REYNA 250 MG TABS 9065060 AZITHROMYCIN Inac tive PREDNISONE 20 MG TAB 2 tabs daily for 3 days, 1 t ab daily for 3 days, 1/2 tab daily for 2 days PREDNISONE 20 MG TAB 885666 PREDNISON E Inactive ZITHROMAX 250 MG TAB 2 po today, then 1 po q days 2-5 ZITHROMAX 250 MG TAB 7648150 AZITHROMYCIN Inactive Vital Signs Date Name Value [...] Negative Encounters Code Encounter Date Provider Facility CPT-08618 Level 3 Est. Patient 12:17:50 CDT Hugo Restrepo MD [facility]-65753 Level 3 Est. Patient 13:42:38 CDT [facility] CPT-91460 Level 3 Est. Patient 13:23:51 CDT Diya cobian [facility] [place]-49510 Level 3 Est. Patient 14:22:19 SERVICE LINE COORDINATOR Diya cobian [facility] [place]-13776 Level 3 Est. Patient 10:11:46 CDT Carlton rich MD [facility]-23462 Level 3 Est. Patient 17:29:43 CDT [facility] CPT-03294 Level 3 Est. [facility] 11:58:[facility] Level 4 Est. Patient 14:36:51 CDT Carlton rich MD [facility]-93364 Level 3 Est. Patient 18:16:00 SERVICE LINE COORDINATOR Blaine HERNANDEZ [facility]-03453 Level 3 Est. Patient 09:45:49 SERVICE LINE COORDINATOR Carlton rich MD [facility] CPT-99220 Level 3 Est. Patient 13:19:20 CDT Carlton rich MD [facility] CPT-63181 Level 3 Est. Patient 13:06:43 CDT Ridge tam DO [facility] CPT-55384 Level 3 Est. Patient 10:03:07 CDT Perez Mora MD [facility] CPT-53296 Level 3 Est. Patient 19:50:35 SERVICE LINE COORDINATOR Carlton rich MD [facility]-55688 Level 4 Est. Patient 18:05:01 SERVICE LINE COORDINATOR Carlton rich MD [facility]-04912 Level 3 Est. Patient 10:45:55 SERVICE LINE COORDINATOR Hugo Restrepo MD [facility]-42273 Level 3 Est. Patient 14:12:49 CDT Griffin HERNANDEZ [facility]-90241 Level 3 Est. Patient 17:37:24 CDT Carlton rich MD [facility]-27323 Level 3 Est. Patient 16:51:54 CDT Carlton rich MD [facility]-57858 Level 3 Est. Patient 12:18:11 CDT Hugo Restrepo MD [facility]-46288 Level 3 Est. Patient 11:30:25 CDT Marcy crisostomo MD PhD [facility]-03160 Level 3 Est. Patient 12:00:47 SERVICE LINE COORDINATOR Carlton rich MD [facility]-44653 Level 3 Est. Patient 16:31:06 SERVICE LINE COORDINATOR Carlton rich MD [facility]-06511 Level 3 Est. Patient 16:23:24 SERVICE LINE COORDINATOR Ridge tam DO [facility]-11135 Level 3 Est. Patient 12:34:12 CDT Carlton rich MD [facility]-53504 Level 2 Est. Patient 15:43:33 CDT oRbi armstrong MD [facility]-62623 Level 4 Est. Patient 14:04:44 CDT Carlton rich MD [facility]-94796 Level 3 Est. Patient 05:47:59 CDT Ridge tam DO [facility] CPT-94241 Level 3 Est. Patient 13:12:53 SERVICE LINE COORDINATOR Carlton rich MD [facility] CPT-11528 Level 3 Est. Patient 14:26:53 CDT Hugo [...] CPT-J1100 Decadron 6mg (Dexamethasone) 14:32:13 CDT 2 CPT-22281 Hip bilat min 2V w AP pelvis 13:16:20 CDT 2 CPT-58289 Pelvis only 13:07:33 CDT CPT-91624 Spec Collection and Handling Fee 11:25:12 C DT CPT-08652 Fluzone Quadrivalent Intramuscular Suspe nsion 0.5 ML 14:31:55 CDT CPT-67254 Abx/Therapy Injection 13:28:47 SERVICE LINE COORDINATOR CPT-J2930 Solu Medrol 125 mg (Methyl Prednisolone Sodium Succinate) 12:00:47 SERVICE LINE COORDINATOR CPT-54998 Venipuncture Draw Fee 11:33:31 CDT CPT-15333 EKG Trac and Interp 11:21:09 CDT CPT-35688 Chest 2V Frontal and Lat 11:21:09 CDT 12/15 CPT-50562 Venipuncture Draw Fee 08:02:34 CDT CPT-58076 Chest 2V Frontal and Lat 05:47:59 CDT 06/05
--- OUTSIDE RECORDS SUMMARY | 2019-10-08 10:14 | XMS REPORT | Clinical Summary ---
Author Author Caitlin, Juliana Martinez Organization [facility] Address Unknown Phone Unavailable Allergies, Adverse Reactions, [...] po qd x 5 days P REDNISONE [id number] No Longer Active Perze Mora MD Active PROAIR HFA 108 (90 BASE) MCG/ACT INHALATION AEROSOL SO LUTION 2 puffs four times a day as needed ALBUTEROL SULFATE 66824301705 No Long er Active Becky FUENTES Active ASPIRIN 81 MG ORAL TABLET 1 po qd ASPIRIN 56322325950 Active Carlton Hu MD Active PREDNISONE 20 MG ORAL TABLET 1 tab twice daily for 3 d ay, then one daily for three days PREDNISONE 13264488049 No Longer Active Carlton Hu MD Active AUGMENTIN 875-125 MG ORAL TABLET 1 po BID x 10 days 20 16/03/22 AMOXICILLIN-POT CLAVULANATE 42497512188 No Longer Active Elise Garcia APRN Active TERBINAFINE HCL 250 MG ORAL TABLET 1 qDay for nail fungus 7 TERBINAFINE HCL 36426062748 No Longer Active Carlton Hu MD A ctive TUSSIONEX PENNKINETIC ER 10-8 MG/5ML ORAL SUSPENSION E XTENDED RELEASE 5ml po q12hr PRN Cough HYDROCOD POLST-CHLORPHEN POLST 82734070935 Active Carlton Hu MD Active AMOXICILLIN 500 MG ORAL CAPSULE 1 cap by mouth three times a day AMOXICILLIN 92505458582 No Longer Active Carlton Hu MD Active ELMIRON 100 MG ORAL CAPSULE 2 tablets in the am and 1 tablet at hs PENTOSAN POLYSULFATE SODIUM 75558520199 No Longer Active Robert jade Hu MD Active MUCINEX D 60-600 MG ORAL TABLET EXTENDED RELEASE 12 HOUR 1 t ab po q am PSEUDOEPHEDRINE-GUAIFENESIN 67339761412 No Longer Act nael Carlton Hu MD Active MUCINEX DM MAXIMUM STRENGTH 60-1200 MG ORAL TABLET EXT ENDED RELEASE 12 HOUR 1 tab po q am DEXTROMETHORPHAN-GUAIFENESIN 09070441757 No Longer Active Carlton Hu MD Active TUSSIONEX PENNKINETIC ER 10-8 MG/5ML ORAL SUSPENSION E XTENDED RELEASE 5ml po q12hr PRN Cough HYDROCOD POLST-CHLORPHEN POLST 5 3407749174 No Longer Active Carlton Hu MD Active POTASSIUM CHLORIDE ER 20 MEQ ORAL TABLET EXTENDED RELE ASE Take 1 by mouth 4 times daily for 7 days POTASSIUM CHLORIDE 26230448270 No Longer Active Carlton Hu MD Active ZITHROMAX 250 MG ORAL TABLET 2 po today, then 1 po q days 2-5 20 14/09/04 AZITHROMYCIN 22532839869 No Longer Active Elise Garcia APRN Active TUSSIONEX PENNKINETIC ER 10-8 MG/5ML ORAL SUSPENSION E XTENDED RELEASE 5 ml twice a day as needed for cough HYDROCOD POLST-CHLORPH EN POLST 75019243713 No Longer Active Elise Garcia APRN Active MONTELUKAST SODIUM 10 MG ORAL TABLET 1 po daily for Allergy MONTELUKAST SODIUM 69892513831 Active Carlton Hu MD Ac tive TUSSIONEX PENNKINETIC ER 10-8 MG/5ML ORAL SUSPENSION E XTENDED RELEASE 5ml po q12hr PRN Cough HYDROCOD POLST-CHLORPHEN POLST 5 1712405778 No Longer Active Hugo Restrepo MD Active GABAPENTIN 100 MG ORAL CAPSULE 1 po BID for fibromyalgia GABAPENTIN 89492808090 Active Carlton Hu MD Active LYRICA 100 MG ORAL CAPSULE Take 1 tab po BID for fibromyalgia 20 11/08/21 PREGABALIN 24192676844 No Longer Active Elise Garcia APRN A ctive PREDNISONE 20 MG ORAL TABLET 2 tabs daily for 3 days, 1 tab daily for 3 days, 1/2 tab daily for 2 days PREDNISONE 47384117033 No Longer Active Diya De Guzman APRN Active TUSSIONEX PENNKINETIC ER 10-8 MG/5ML ORAL SUSPENSION E XTENDED RELEASE 5 mL PO q 12 hrs PRN cough HYDROCOD POLST-CHLORPHEN POLST 414624 68109 No Longer Active Jillina Gege KHAN Active FLUTICASONE PROPIONATE 50 MCG/ACT NASAL SUSPENSION 2 s prays each nostril daily until bottle is empty FLUTICASONE PROPIONATE 837785761 99 No Longer Active Diya De Guzman APRN Active ASMANEX 60 METERED DOSES 220 MCG/INH INHALATION AEROSO L POWDER BREATH ACTIVATED 1 puff bid with rinse after MOMETASONE FUROATE 3434077 4102 No Longer Active Diya De Guzman APRN Active ZITHROMAX Z-REYNA 250 MG ORAL TABLET 2 today, then 1 daily for 4 d ays AZITHROMYCIN 48592920928 No Longer Active Elise Garcia APRN Active TUSSIONEX PENNKINETIC ER 10-8 MG/5ML ORAL SUSPENSION E XTENDED RELEASE 5ml po q12hr PRN Cough HYDROCOD POLST-CHLORPHEN POLST 5 1933038259 No Longer Active Elise Garcia APRN Active PREDNISONE 20 MG ORAL TABLET 2 tabs daily for 3 days, 1 tab daily for 3 days, 1/2 tab daily for 2 days PREDNISONE 26326051145 No Longer Active Diya De Guzman APRN Active AMOXICILLIN 500 MG ORAL CAPSULE 2 po BID x 10 days 201 09/29/08 AMOXICILLIN 24931617198 No Longer Active Diya De Guzman APRN Act nael SINGULAIR 10 MG ORAL TABLET 1 po qday for allergies 20 14/01/12 MONTELUKAST SODIUM 88572071414 No Longer Active Carlton Hu MD Active LEVAQUIN 500 MG ORAL TABLET 1 tablet by mouth daily 20 13/09/24 LEVOFLOXACIN 31492871924 No Longer Active Carlton Hu MD Acti ve FLUTICASONE PROPIONATE 50 MCG/ACT NASAL SUSPENSION 2 s prays each nostril daily for 2 weeks, then 1 spray each nostril daily. FLUTICASONE PROPIONATE 89335182936 Active Elise Garcia APRN Active ZITHROMAX 250 MG ORAL TABLET 2 po today, then 1 po q days 2-5 20 13/08/10 AZITHROMYCIN 22279161702 No Longer Active Elise Garcia APRN Active XANAX 0.5 MG ORAL TABLET one tablet by mouth daily prn anxiety 2015 ALPRAZOLAM 00750248404 Active Carlton Hu MD Active CYMBALTA 30 MG ORAL CAPSULE DELAYED RELEASE PARTICLES 1 cap by mouth daily for depression DULOXETINE HCL 20803717975 Active Carlton beltrán MD Active CEFDINIR 300 MG ORAL CAPSULE 1 po BID x 10 days CEFDINIR 55229067484 No Longer Active Carlton Hu MD Active ZOCOR 40 MG ORAL TABLET 1 tab by mouth daily SI MVASTATIN 30509493511 No Longer Active Carlton Hu MD Active CYCLOBENZAPRINE HCL 10 MG ORAL TABLET 1 tablet by mouth BID prn had pain CYCLOBENZAPRINE HCL 21350751088 No Longer Active Jayden Hu MD Active LEVOFLOXACIN 500 MG ORAL TABLET 1 tab PO daily x 10 days LEVOFLOXACIN 99151356158 No Longer Active Carlton Hu MD Acti ve PREDNISONE 20 MG ORAL TABLET 3 tab PO qd x 2d, 2 tab P O qd x 2d, 1 tab PO qd x 2d, 1/2 tab PO qd x 2d PREDNISONE 32539249676 No Lo nger Active Carlton Hu MD Active FLUTICASONE PROPIONATE 50 MCG/ACT NASAL SUSPENSION 1 t o 2 sprays each nostril daily FLUTICASONE PROPIONATE 80335306298 No Longer Ac tive Blaine HERNANDEZ Active CHERATUSSIN AC 100-10 MG/5ML ORAL SYRUP 1 tsp by mouth every 4 hours as needed for cough GUAIFENESIN-CODEINE 39102702541 No Longe r Active Blaine HERNANDEZ Active PROMETHAZINE-CODEINE 6.25-10 MG/5ML ORAL SYRUP 1 tsp b y mouth every 6 hours if needed for cough PROMETHAZINE-CODEINE 10103515791 No Longer Active Blaine HERNANDEZ Active CHERATUSSIN AC 100-10 MG/5ML ORAL SYRUP 1 tsp by mouth every 4 hours as needed for cough GUAIFENESIN-CODEINE 11418971486 No Longe r Active Blaine HRENANDEZ Active ZITHROMAX Z-REYNA 250 MG ORAL TABLET 2 today, then 1 daily for 4 d ays AZITHROMYCIN 48724844251 No Longer Active Columba Raida Act nael ZITHROMAX 250 MG ORAL TABLET 2 po today, then 1 po q days 2-5 20 14/03/21 AZITHROMYCIN 36666520478 No Longer Active Carlton Hu MD Active ZITHROMAX Z-REYNA 250 MG ORAL TABLET 2 today, then 1 daily for 4 d ays AZITHROMYCIN 81128098218 No Longer Active Columba Raida Act nael AUGMENTIN 875-125 MG ORAL TABLET 1 po BID x 10 days 13/01/20 AMOXICILLIN-POT CLAVULANATE 70319934757 No Longer Active Diya De Guzman APRN Active ZITHROMAX 250 MG ORAL TABLET 2 po today, then 1 po q days 2-5 20 12/08/14 AZITHROMYCIN 72291202714 No Longer Active Carlton Hu MD Active TRAMADOL HCL 50 MG ORAL TABLET 1 po tid with ES Tylenol TRAMADOL HCL 45411399164 Active Carlton Hu MD Active PREMARIN 0.625 MG ORAL TABLET TAKE 1 TAB BY MOUTH DAILY ESTROGENS CONJUGATED 96202295552 No Longer Active Ridge Bess DO A ctive CYMBALTA 30 MG ORAL CAPSULE DELAYED RELEASE PARTICLES 1 cap by mouth daily DULOXETINE HCL 90923338218 No Longer Active Ridge tam DO Active AMOXICILLIN 500 MG ORAL CAPSULE 1 tab by mouth 3 times daily x 10 days AMOXICILLIN 07361830890 No Longer Active Carlton bustamante MD Active AMOXICILLIN 500 MG ORAL CAPSULE 1 tab by mouth 3 times daily x 10 days AMOXICILLIN 73270906197 No Longer Active Carlton bustamante MD Active PROMETHAZINE-CODEINE 6.25-10 MG/5ML ORAL SYRUP 1 tsp b y mouth every 8 hours prn cough PROMETHAZINE-CODEINE 69870334353 No Longer Acti ve Carlton Hu MD Active MEDROL 4 MG ORAL TABLET THERAPY PACK 6 pills x 1 day, then 5 pills x 1 day then 4 pills x 1 day, then 3 pills x 1 day, then 2 pills x 1 day, then 1 pill x 1 day, then stop METHYLPREDNISOLONE 14134474338 No Long er Active Perez Mora MD Active AZITHROMYCIN 250 MG ORAL TABLET 2 po qd x 1 day, then 1 po q d x 4 days AZITHROMYCIN 05250116785 No Longer Active Perez Ambriz MD Active SYMBICORT 160-4.5 MCG/ACT INHALATION AEROSOL 2 puffs bid wit h rinse after BUDESONIDE-FORMOTEROL FUMARATE 75424187028 N o Longer Active Perez Mora MD Active LYRICA 75 MG ORAL CAPSULE TAKE 1 CAPSULE BY MOUTH TWICE DAILY PREGABALIN 56647332833 No Longer Active Carlton Hu MD Acti ve TOPAMAX 25 MG ORAL TABLET 1 qHS x 1 week, then 1 BID x 1 week, then 1 qAM and 2 qHS x 1 week, then 2 BID (migraine prevention) T OPIRAMATE 88133757528 No Longer Active Jerica FUENTES Active TOPAMAX 50 MG ORAL TABLET take 1 tab po BID for migraines. 07/02 TOPIRAMATE 59066303264 No Longer Active Jerica FUENTES Active TOPAMAX 100 MG ORAL TABLET Take 1 tablet po bid TO PIRAMATE 20076353508 Active Carlton Hu MD Active TRIAMCINOLONE ACETONIDE 0.1 % EXTERNAL CREAM apply three roger es daily prn rash TRIAMCINOLONE ACETONIDE 01339075163 No Longer Active Carlton Hu MD Active PAXIL 40 MG ORAL TABLET take 1 tab po qday for depression 0 PAROXETINE HCL 22114227481 Active Carlton Hu MD Active CHERATUSSIN AC 100-10 MG/5ML ORAL SYRUP 5ml po q6hr PRN Cough 20 13/04/14 GUAIFENESIN-CODEINE 24887434467 No Longer Active Carlton Hu MD Active MEDROL 4 MG ORAL TABLET THERAPY PACK 6 tabs on day 1, 5 tabs on day 2, 4 tabs on day 3, 3 tabs on day 4, 2 tabs on day 5, 1 tab on day 6 2013 METHYLPREDNISOLONE 09645658782 No Longer Active Perez Mora MD Active AZITHROMYCIN 250 MG ORAL TABLET 2 po qd x 1 day, then 1 po q d x 4 days AZITHROMYCIN 30507183188 No Longer Active Perez Ambriz MD Active PROPRANOLOL HCL 60 MG ORAL TABLET 1 PO Q D PROPRANOLOL HCL 09758755540 No Longer Active Perez Mora MD Activ e CHERATUSSIN AC 100-10 MG/5ML ORAL SYRUP take one tsp po Q 6h ours prn cough GUAIFENESIN-CODEINE 17440150913 No Longer Active Zia Mora MD Active AUGMENTIN 875-125 MG ORAL TABLET 1 tab by mouth twice daily with food AMOXICILLIN-POT CLAVULANATE 21147857391 No Longer Act nael Perez Mora MD Active CHERATUSSIN AC 100-10 MG/5ML ORAL SYRUP 1 tsp by mouth every 4 hours as needed for cough GUAIFENESIN-CODEINE 20537554116 No Longe r Active Hugo Restrepo MD Active ACETAMINOPHEN-CODEINE #3 300-30 MG ORAL TABLET 1 PO Q 4-6 HRS IL N PAIN ACETAMINOPHEN-CODEINE 36280079825 No Longer Active Hugo Restrepo MD Active LEVAQUIN 500 MG ORAL TABLET take one po QD LEVO FLOXACIN 32437669615 No Longer Active Griffin HERNANDEZ Active PREDNISONE 20 MG ORAL TABLET Take 3 tabs daily for 3 d ays, 2 tabs daily for 3 days, 1 tab daily for 3 days, 1/2 tab daily for 3 days 11/07 PREDNISONE 42172671503 No Longer Active Carlton Hu MD Acti ve AVELOX 400 MG ORAL TABLET 1 tab by mouth daily MOXIFLOXACIN HCL 73606451127 No Longer Active Carlton Hu MD Active CHERATUSSIN AC 100-10 MG/5ML ORAL SYRUP 1 tsp by mouth every 4 hours as needed for cough GUAIFENESIN-CODEINE 87950199338 No Longe r Active Hugo Restrepo MD Active AVELOX 400 MG ORAL TABLET 1 tab by mouth daily MOXIFLOXACIN HCL 92025204754 No Longer Active Marcy De La Rosa MD PhD Active TERBINAFINE HCL 250 MG ORAL TABLET 1 qDay T ERBINAFINE HCL 14536492104 No Longer Active Marcy De La Rosa MD PhD Active CHERATUSSIN AC 100-10 MG/5ML ORAL SYRUP 1 tsp by mouth every 4 hours as needed for cough GUAIFENESIN-CODEINE 71345326486 No Longe r Active Marcy De La Rosa MD PhD Active AVELOX 400 MG ORAL TABLET 1 tab by mouth daily MOXIFLOXACIN HCL 26471434635 No Longer Active Marcy De La Rosa MD PhD Active HYDROCODONE-ACETAMINOPHEN 5-325 MG ORAL TABLET 1 po q 6hr PRN co ugh HYDROCODONE-ACETAMINOPHEN 35113513270 No Longer Active Marcy De La Rosa MD PhD Active PREDNISONE 20 MG ORAL TABLET 2 tabs daily for 3 days, 1 tab daily for 3 days, 1/2 tab daily for 2 days PREDNISONE 82416477857 No Longer Active Carlton Hu MD Active CEFDINIR 300 MG ORAL CAPSULE by mouth twice a day 2011 CEFDINIR 63955925253 No Longer Active Carlton Hu MD Acti ve HYDROCHLOROTHIAZIDE 25 MG ORAL TABLET 1 TAB PO DAILY HYDROCHLOROTHIAZIDE 95375772280 Active Carlton Hu MD A ctive ACETAMINOPHEN-CODEINE #3 300-30 MG ORAL TABLET 1 tablet po q 4-6 hrs prn pain ACETAMINOPHEN-CODEINE 89642009058 No Longer Active Ridge Bess DO Active ZITHROMAX 250 MG ORAL TABLET 2 po today, then 1 po q days 2-5 20 03/07/07 AZITHROMYCIN 81169713302 No Longer Active Carlton Hu MD Active CHERATUSSIN AC 100-10 MG/5ML ORAL SYRUP take 1 tsp po q4-6 h ours prn cough GUAIFENESIN-CODEINE 00779262518 No Longer Active Jayden Hu MD Active ACETAMINOPHEN-CODEINE #3 300-30 MG ORAL TABLET 1 PO Q 4-6 HR PRN PAIN ACETAMINOPHEN-CODEINE 43461361825 No Longer Active Arnol Hu MD Active LORTAB 7.5-500 MG/15ML ORAL ELIXIR 7.5 ml po q 4 hour prn cough HYDROCODONE-ACETAMINOPHEN 60157202376 No Longer Active Carlton Hu MD Active PREDNISONE 20 MG ORAL TABLET 1 po bid 3 days, then 1 po q day 3 days PREDNISONE 02115059350 No Longer Active Carlton Hu MD Active CEFDINIR 300 MG ORAL CAPSULE by mouth twice a day 2011 CEFDINIR 92632680413 No Longer Active Carlton Hu MD Acti ve CEFDINIR 300 MG ORAL CAPSULE by mouth twice a day 2010 CEFDINIR 46396145581 No Longer Active Carlton Hu MD Acti ve CEFDINIR 300 MG ORAL CAPSULE by mouth twice a day 2010 CEFDINIR 47195443797 No Longer Active Carlton Hu MD Acti ve TESSALON PERLES 100 MG ORAL CAPSULE 1 tablet by mouth 3 times daily as needed for cough BENZONATATE 07275312877 No Longer Active Carlton Hu MD Active CEFDINIR 300 MG ORAL CAPSULE by mouth twice a day 2010 CEFDINIR 28367676262 No Longer Active Carlton Hu MD Acti ve ZITHROMAX Z-REYNA 250 MG ORAL TABLET 2 today, then 1 daily for 4 d ays AZITHROMYCIN 55518429093 No Longer Active Hugo Restrepo MD Active TESSALON PERLES 100 MG ORAL CAPSULE 1 tablet by mouth 3 times daily as needed for cough TESSALON PERLES 100 MG ORAL CAPSULE 49601 7 BENZONATATE Inactive PREDNISONE 20 MG ORAL TABLET 1 po bid 3 days, then 1 po q day 3 days PREDNISONE 20 MG ORAL TABLET 995637 PREDNISONE Greer ctive LORTAB 7.5-500 MG/15ML ORAL [...] cough CHERATUSSIN AC 100-10 MG/5ML ORAL SYRUP 670809 GUAIFENESIN-CODEINE Inactive ACETAMINOPHEN-CODEINE #3 300-30 MG ORAL TABLET 1 tablet po q 4-6 hrs prn pain ACETAMINOPHEN-CODEINE #3 300-30 MG ORAL TABLET ACETAMINOPHEN-CODEINE Inactive HYDROCODONE-ACETAMINOPHEN 5-325 MG ORAL TABLET 1 po q 6hr PRN co ugh HYDROCODONE-ACETAMINOPHEN 5-325 MG ORAL TABLET 044006 HYDROCODONE-ACETAMINOPHEN Inactive AVELOX 400 MG ORAL TABLET 1 tab by mouth daily AVELOX 400 MG ORAL TABLET 786486 MOXIFLOXACIN HCL Inactive CHERATUSSIN AC 100-10 MG/5ML ORAL SYRUP 1 tsp by mouth every 4 hours as needed for cough CHERATUSSIN AC 100-10 MG/5ML ORAL SYRUP 9 49505 GUAIFENESIN-CODEINE Inactive TERBINAFINE HCL 250 MG ORAL TABLET 1 qDay 07/08 TERBINAFINE HCL 250 MG ORAL TABLET 923883 TERBINAFINE HCL Inactive CHERATUSSIN AC 100-10 MG/5ML ORAL SYRUP 1 tsp by mouth every 4 hours as needed for cough CHERATUSSIN AC 100-10 MG/5ML ORAL SYRUP 9 83401 GUAIFENESIN-CODEINE Inactive ACETAMINOPHEN-CODEINE #3 300-30 MG ORAL TABLET 1 PO Q 4-6 HRS IL N PAIN ACETAMINOPHEN-CODEINE #3 300-30 MG ORAL TABLET ACETAMINOPHEN-CODEINE Inactive CHERATUSSIN AC 100-10 MG/5ML ORAL SYRUP 1 tsp by mouth every 4 hours as needed for cough CHERATUSSIN AC 100-10 MG/5ML ORAL SYRUP 9 09709 GUAIFENESIN-CODEINE Inactive AUGMENTIN 875-125 MG ORAL TABLET 1 tab by mouth twice daily with food AUGMENTIN 875-125 MG ORAL TABLET 816390 AMOXICIL MADELINE-POT CLAVULANATE Inactive CHERATUSSIN AC 100-10 MG/5ML ORAL SYRUP take one tsp po Q 6h ours prn cough CHERATUSSIN AC 100-10 MG/5ML ORAL SYRUP 338283 GUAIFENESIN-CODEINE Inactive PROPRANOLOL HCL 60 MG ORAL TABLET 1 PO Q D PROPRANOLOL HCL 60 MG ORAL TABLET 875849 PROPRANOLOL HCL Inactive TOPAMAX 50 MG ORAL TABLET take 1 tab po BID for migraines. 07/02 TOPAMAX 50 MG ORAL TABLET 771169 TOPIRAMATE Inacti ve TOPAMAX 25 MG ORAL TABLET 1 qHS x 1 week, then 1 BID x 1 week, then 1 qAM and 2 qHS x 1 week, then 2 BID (migraine prevention) TOPAMAX 25 MG ORAL TABLET 864271 TOPIRAMATE Inactive LYRICA 75 MG ORAL CAPSULE TAKE 1 CAPSULE BY MOUTH TWICE DAILY LYRICA 75 MG ORAL CAPSULE PREGABALIN Inactive SYMBICORT 160-4.5 MCG/ACT INHALATION AEROSOL 2 puffs bid wit h rinse after SYMBICORT 160-4.5 MCG/ACT INHALATION AEROSOL BUDESONIDE- FORMOTEROL FUMARATE Inactive PROMETHAZINE-CODEINE 6.25-10 MG/5ML ORAL SYRUP 1 tsp b y mouth every 8 hours prn cough PROMETHAZINE-CODEINE 6.25-10 MG/ 5ML ORAL SYRUP 718500 PROMETHAZINE-CODEINE Inactive CYMBALTA 30 MG ORAL CAPSULE DELAYED RELEASE PARTICLES 1 cap by mouth daily CYMBALTA 30 MG ORAL CAPSULE DELAYED RELE ASE PARTICLES 254360 DULOXETINE HCL Inactive PREMARIN 0.625 MG ORAL TABLET TAKE 1 TAB BY MOUTH DAILY PREMARIN 0.625 MG ORAL TABLET ESTROGENS CONJUGATED Inactive CHERATUSSIN AC 100-10 MG/5ML ORAL SYRUP 1 tsp by mouth every 4 hours as needed for cough CHERATUSSIN AC 100-10 MG/5ML ORAL SYRUP 9 88776 GUAIFENESIN-CODEINE Inactive PROMETHAZINE-CODEINE 6.25-10 MG/5ML ORAL SYRUP 1 tsp b y mouth every 6 hours if needed for cough PROMETHAZINE-CODEINE 6.25-10 MG/5ML ORAL SYRUP 507625 PROMETHAZINE-CODEINE Inactive CHERATUSSIN AC 100-10 MG/5ML ORAL SYRUP 1 tsp by mouth every 4 hours as needed for cough CHERATUSSIN AC 100-10 MG/5ML ORAL SYRUP 9 98061 GUAIFENESIN-CODEINE Inactive FLUTICASONE PROPIONATE 50 MCG/ACT NASAL SUSPENSION 1 t o 2 sprays each nostril daily FLUTICASONE PROPIONATE 50 MCG/AC T NASAL SUSPENSION 5629157 FLUTICASONE PROPIONATE Inactive PREDNISONE 20 MG ORAL TABLET 3 tab PO qd x 2d, 2 tab P O qd x 2d, 1 tab PO qd x 2d, 1/2 tab PO qd x 2d PREDNISONE 20 MG ORAL TAB LET 148061 PREDNISONE Inactive LEVOFLOXACIN 500 MG ORAL TABLET 1 tab PO daily x 10 days LEVOFLOXACIN 500 MG ORAL TABLET 415575 LEVOFLOXACIN Inactive CYCLOBENZAPRINE HCL 10 MG ORAL TABLET 1 tablet by mouth BID prn had pain CYCLOBENZAPRINE HCL 10 MG ORAL TABLET 134405 CYCLOBENZAPRINE HCL Inactive ZOCOR 40 MG ORAL TABLET 1 tab by mouth daily 4 ZOCOR 40 MG ORAL TABLET 404962 SIMVASTATIN Inactive TUSSIONEX PENNKINETIC ER 10-8 MG/5ML [...] FLUTICASONE PROPIO EFE 50 MCG/ACT NASAL SUSPENSION 2285854 FLUTICASONE PROPIONATE Inactive TUSSIONEX PENNKINETIC ER 10-8 [...] three days PREDNISONE 20 MG ORAL TABLET 947715 PREDNIS ONE Inactive PROAIR HFA 108 (90 BASE) MCG/ACT INHALATION AEROSOL SO LUTION 2 puffs four times a day as needed PROAIR HFA 108 (90 B ASE) MCG/ACT INHALATION AEROSOL SOLUTION ALBUTEROL SULFATE Inactive ZITHROMAX Z-REYNA 250 MG ORAL TABLET 2 today, then 1 daily for 4 d ays ZITHROMAX Z-REYNA 250 MG ORAL TABLET 387514 AZITHROMYCIN Inactive CEFDINIR 300 MG ORAL CAPSULE by mouth twice a day 2010 CEFDINIR 300 MG ORAL CAPSULE 934299 CEFDINIR Inactive CEFDINIR 300 MG ORAL CAPSULE [...] 2-5 03/07/07 ZITHROMAX 250 MG ORAL TABLET 836060 AZITHROMYCIN Butler ctive CEFDINIR 300 MG ORAL CAPSULE by mouth twice a day 2011 CEFDINIR 300 MG ORAL CAPSULE 20020704 CEFDINIR Inactive PREDNISONE 20 MG ORAL TABLET 2 tabs daily for 3 days, 1 tab daily for 3 days, 1/2 tab daily for 2 days PREDNISONE 20 MG ORAL T ABLET 850508 PREDNISONE Inactive AVELOX 400 MG ORAL TABLET 1 tab by mouth daily AVELOX 400 MG ORAL TABLET 300936 MOXIFLOXACIN HCL Inactive AVELOX 400 MG ORAL TABLET 1 tab by mouth daily AVELOX 400 MG ORAL TABLET 022973 MOXIFLOXACIN HCL Inactive PREDNISONE 20 MG ORAL TABLET Take 3 tabs daily for 3 d ays, 2 tabs daily for 3 days, 1 tab daily for 3 days, 1/2 tab daily for 3 days 11/07 PREDNISONE 20 MG ORAL TABLET 002710 PREDNISONE Inactive LEVAQUIN 500 MG ORAL TABLET take one po QD LEVAQUIN 500 MG ORAL TABLET 107977 LEVOFLOXACIN Inactive AZITHROMYCIN 250 MG ORAL TABLET 2 po qd x 1 day, then 1 po q d x 4 days AZITHROMYCIN 250 MG ORAL TABLET 056201 AZITHROMY GIOVANNI Inactive MEDROL 4 MG ORAL TABLET THERAPY PACK 6 tabs on day 1, 5 tabs on day 2, 4 tabs on day 3, 3 tabs on day 4, 2 tabs on day 5, 1 tab on day 6 2013 MEDROL 4 MG ORAL TABLET THERAPY PACK 893013 METHYLPREDNISOLONE Butler ctive CHERATUSSIN AC 100-10 MG/5ML ORAL SYRUP 5ml po q6hr PRN Cough 20 13/04/14 CHERATUSSIN AC 100-10 MG/5ML ORAL SYRUP 490311 GUAIFENE SIN-CODEINE Inactive TRIAMCINOLONE ACETONIDE 0.1 % EXTERNAL CREAM apply three roger es daily prn rash TRIAMCINOLONE ACETONIDE 0.1 % EXTERNAL CREAM 101 4314 TRIAMCINOLONE ACETONIDE Inactive AZITHROMYCIN 250 MG ORAL TABLET 2 po qd x 1 day, then 1 po q d x 4 days AZITHROMYCIN 250 MG ORAL TABLET 304641 AZITHROMY GIOVANNI Inactive MEDROL 4 MG ORAL TABLET THERAPY PACK 6 pills x 1 day, then 5 pills x 1 day then 4 pills x 1 day, then 3 pills x 1 day, then 2 pills x 1 day, then 1 pill x 1 day, then stop MEDROL 4 MG ORAL TABLET THERAPY PACK 410585 METHYLPREDNISOLONE Inactive AMOXICILLIN 500 MG ORAL CAPSULE 1 tab by mouth 3 times daily x 10 days AMOXICILLIN 500 MG ORAL CAPSULE 143308 AMOXICILL IN Inactive AMOXICILLIN 500 MG ORAL CAPSULE 1 tab by mouth 3 times daily x 10 days AMOXICILLIN 500 MG ORAL CAPSULE 112529 AMOXICILL IN Inactive ZITHROMAX 250 MG ORAL TABLET 2 po today, then 1 po q days 2-5 20 12/08/14 ZITHROMAX 250 MG ORAL TABLET 528477 AZITHROMYCIN Butler ctive AUGMENTIN 875-125 MG ORAL TABLET 1 po BID x 10 days 20 13/01/20 AUGMENTIN 875-125 MG ORAL TABLET 249718 AMOXICILLIN-POT CLAVULANATE Inactive ZITHROMAX Z-REYNA 250 MG ORAL TABLET 2 today, then 1 daily for 4 d ays ZITHROMAX Z-REYNA 250 MG ORAL TABLET 448163 AZITHROMYCIN Inactive ZITHROMAX 250 MG ORAL TABLET 2 po today, then 1 po q days 2-5 20 14/03/21 ZITHROMAX 250 MG ORAL TABLET 795472 AZITHROMYCIN Greer ctive ZITHROMAX Z-REYNA 250 MG ORAL TABLET 2 today, then 1 daily for 4 d ays ZITHROMAX Z-REYNA 250 MG ORAL TABLET 241875 AZITHROMYCIN Inactive CEFDINIR 300 MG ORAL CAPSULE 1 po BID x 10 days 06/21 CEFDINIR 300 MG ORAL CAPSULE 20020704 CEFDINIR Inactive ZITHROMAX 250 MG ORAL TABLET 2 po today, then 1 po q days 2-5 20 13/08/10 ZITHROMAX 250 MG ORAL TABLET 177161 AZITHROMYCIN Greer ctive LEVAQUIN 500 MG ORAL TABLET 1 tablet by mouth daily 13/09/24 LEVAQUIN 500 MG ORAL TABLET 19971102 LEVOFLOXACIN Inactive SINGULAIR 10 MG ORAL TABLET 1 po qday for allergies 20 14/01/12 SINGULAIR 10 MG ORAL TABLET 20010504 MONTELUKAST SODIUM Inactive AMOXICILLIN 500 MG ORAL CAPSULE 2 po BID x 10 days 201 09/29/08 AMOXICILLIN 500 MG ORAL CAPSULE 133681 AMOXICILLIN Inactive PREDNISONE 20 MG ORAL TABLET 2 tabs daily for 3 days, 1 tab daily for 3 days, 1/2 tab daily for 2 days PREDNISONE 20 MG ORAL T ABLET 553244 PREDNISONE Inactive ZITHROMAX Z-REYNA 250 MG ORAL TABLET 2 today, then 1 daily for 4 d ays ZITHROMAX Z-REYNA 250 MG ORAL TABLET 685582 AZITHROMYCIN Inactive PREDNISONE 20 MG ORAL TABLET 2 tabs daily for 3 days, 1 tab daily for 3 days, 1/2 tab daily for 2 days PREDNISONE 20 MG ORAL T ABLET 376517 PREDNISONE Inactive ZITHROMAX 250 MG ORAL TABLET 2 po today, then 1 po q days 2-5 20 14/09/04 ZITHROMAX 250 MG ORAL TABLET 298870 AZITHROMYCIN [facility] AMOXICILLIN 500 MG ORAL CAPSULE 1 cap by mouth three times a day AMOXICILLIN 500 MG ORAL CAPSULE 695642 AMOXICILLIN Inactive TERBINAFINE HCL 250 MG ORAL TABLET 1 qDay for nail fungus 7 TERBINAFINE HCL 250 MG ORAL TABLET 272695 TERBINAFINE HCL Inact nael AUGMENTIN 875-125 MG ORAL TABLET 1 po BID x 10 days 16/03/22 AUGMENTIN 875-125 MG ORAL TABLET 289731 AMOXICILLIN-POT CLAVULANATE Inactive PREDNISONE 20 MG ORAL TABLET 2 po qd x 5 days PREDNISONE 20 MG ORAL TABLET 493850 PREDNISONE Inactive Vital Signs Date Name Value [...] - Chem istry sodium, serum 132 mmol/L [phone]/07/12 potassium, serum 2.7 mmol/L 3.5-5.2 chloride, serum 93 mmol/L 98-107 carbon dioxide, venous blood 30.8 mmol/L 21.0-32 .0 blood glucose 107 mg/dL 65-110 calcium, serum 9.3 mg/dL 8.5-10.1 urea nitrogen, blood 12 mg/dL 7-18 creatinine, serum 1.00 mg/dL 0.60-1.30 sodium, serum 142 mmol/L 263-769 8897/07/17 potassium, serum 4.2 mmol/L 3.5-5.2 chloride, serum 106 mmol/L 98-107 carbon dioxide, venous blood 29.9 mmol/L 21.0-32 .0 blood glucose 108 mg/dL 65-110 calcium, serum 9.1 mg/dL 8.5-10.1 urea nitrogen, blood 11 mg/dL 7-18 creatinine, serum 0.81 mg/dL 0.60-1.30 sodium, serum 139 mmol/L 197-436 2222/03/19 potassium, serum 3.6 mmol/L 3.5-5.2 chloride, serum 100 mmol/L 98-107 carbon dioxide, venous blood 30.3 mmol/L 21.0-32 .0 blood glucose 101 mg/dL 65-110 calcium, serum 9.4 mg/dL 8.5-10.1 urea nitrogen, blood 10 mg/dL 7- creatinine, serum 0.96 mg/dL 0.60-1.30 Lab Report: Rapid Strep - Lab Microbial identification kit, rapid strep method Negative Negative Encounters Code Encounter Date Provider Facility CPT-07274 Level 3 Est. Patient 11:34:49 REMEDIAL TEACHER Perez Mora MD [facility] CPT-64425 Level 4 Est. Patient 09:51:32 REMEDIAL TEACHER Carlton rich MD [facility] CPT-61898 Level 3 Est. Patient 10:26:00 REMEDIAL TEACHER Elise stephenson [facility] [place] CPT-93325 Level 3 Est. Patient 13:35:41 REMEDIAL TEACHER Carlton rich MD [facility] CPT-74963 Level 3 Est. Patient 10:03:52 REMEDIAL TEACHER Carlton rich MD [facility] CPT-64270 Level 3 Est. Patient 12:17:50 CDT Hugo Restrepo MD [facility] CPT-79486 Level 3 Est. Patient 13:42:38 CDT Elise stephenson [facility] [place] CPT-50974 Level 3 Est. Patient 13:23:51 CDT Diya cobian [facility] [place] CPT-91865 Level 3 Est. Patient 14:22:19 REMEDIAL TEACHER Diya cobian [facility] [place] CPT-22428 Level 3 Est. Patient 10:11:46 CDT Carlton rich MD [facility] CPT-06132 Level 3 Est. Patient 17:29:43 CDT Elise Are ll [facility] [place] CPT-34479 Level 3 Est. Patient 11:58:06 CDT Elise Are ll [facility] [place] CPT-57482 Level 4 Est. Patient 14:36:51 CDT Carlton rich MD [facility] CPT-91595 Level 3 Est. Patient 18:16:00 REMEDIAL TEACHER Blaine Freeman [facility] CPT-25687 Level 3 Est. Patient 09:45:49 REMEDIAL TEACHER Carlton rich MD [facility] CPT-80388 Level 3 Est. Patient 13:19:20 CDT Carlton rich MD [facility] CPT-54999 Level 3 Est. Patient 13:06:43 CDT Ridge tam DO [facility] CPT-73529 Level 3 Est. Patient 10:03:07 CDT Perez Mora MD [facility] CPT-55854 Level 3 Est. Patient 19:50:35 REMEDIAL TEACHER Carlton rich MD [facility] CPT-97654 Level 4 Est. Patient 18:05:01 REMEDIAL TEACHER Carlton rich MD [facility] CPT-07287 Level 3 Est. Patient 10:45:55 REMEDIAL TEACHER Hugo Restrepo MD [facility] CPT-63529 Level 3 Est. Patient 14:12:49 CDT Griffin lincoln [facility] CPT-58113 Level 3 Est. Patient 17:37:24 CDT Carlton rich MD [facility] CPT-59253 Level 3 Est. Patient 16:51:54 CDT Carlton rich MD [facility] CPT-90736 Level 3 Est. Patient 12:18:11 CDT Hugo Restrepo MD [facility] CPT-25410 Level 3 Est. Patient 11:30:25 CDT Marcy crisostomo MD PhD [facility] CPT-33583 Level 3 Est. Patient 12:00:47 REMEDIAL TEACHER Carlton rich MD [facility] CPT-83835 Level 3 Est. Patient 16:31:06 REMEDIAL TEACHER Carlton rich MD [facility] CPT-30000 Level 3 Est. Patient 16:23:24 REMEDIAL TEACHER Ridge tam [facility] CPT-09057 Level 3 Est. Patient 12:34:12 CDT Carlton rich MD [facility] CPT-49350 Level 2 Est. Patient 15:43:33 CDT Robi armstrong MD [facility] CPT-20484 Level 4 Est. Patient 14:04:44 CDT Carlton rich MD [facility] CPT-53619 Level 3 Est. Patient 05:47:59 CDT Ridge tam [facility] CPT-15483 Level 3 Est. Patient 13:12:53 REMEDIAL TEACHER Carlton rich MD [facility] CPT-90897 Level 3 Est. Patient 14:26:53 CDT Hugo Restrepo MD [facility] Procedures Code Procedure Name Date Entry Date Standard Desc ription CPT-J1040 Depo Medrol 80 mg (Methyl Prednisolone A cetate) 10:42:44 CDT CPT-J1100 Decadron 8mg (Dexamethasone) 10:42:44 CDT 2 CPT-J0696 Rocephin 1gm Inj Solr 14:32:13 CDT CPT-J1020 Depo Medrol 60 mg (Methyl Prednisolone A cetate) 14:32:13 CDT CPT-J1100 Decadron 6mg (Dexamethasone) 14:32:13 CDT 2 CPT-50012 Hip bilat min 2V w AP pelvis 13:16:20 CDT 2 CPT-33376 Pelvis only 13:07:33 CDT CPT-20004 Spec Collection and Handling Fee 11:25:12 C DT CPT-31804 Fluzone Quadrivalent Intramuscular Suspe nsion 0.5 ML 14:31:55 CDT CPT-08232 Abx/Therapy Injection 13:28:47 REMEDIAL TEACHER CPT-J2930 Solu Medrol 125 mg (Methyl Prednisolone Sodium Succinate) 12:00:47 REMEDIAL TEACHER CPT-63172 Venipuncture Draw Fee 11:33:31 CDT CPT-46820 EKG Trac and Interp 11:21:09 CDT CPT-12337 Chest 2V Frontal and Lat 11:21:09 CDT 12/15 CPT-62923 Venipuncture Draw Fee 08:02:34 CDT CPT-04948 Chest 2V Frontal and Lat 05:47:59 CDT 06/05
--- OUTSIDE RECORDS SUMMARY | 2019-10-08 10:14 | XMS REPORT | Clinical Summary ---
[...] BID x 10 days 16/03/22 AMOXICILLIN-POT CLAVULANATE [id number] Active Elise Whitmore APRN Active TERBINAFINE HCL 250 MG ORAL TABLET 1 qDay for nail fungus 7 TERBINAFINE HCL 71777318462 No Longer Active Carlton Hu MD A ctive TUSSIONEX PENNKINETIC ER 10-8 MG/5ML ORAL SUSPENSION E XTENDED RELEASE 5ml po q12hr PRN Cough HYDROCOD POLST-CHLORPHEN POLST 70144103614 Active Carlton Hu MD Active PREDNISONE 20 MG ORAL TABLET 1 tab twice daily for 3 d ay, then one daily for three days PREDNISONE 12143685797 Active Carlton Hu MD Active AMOXICILLIN 500 MG ORAL CAPSULE 1 cap by mouth three times a day AMOXICILLIN 92650508308 No Longer Active Carlton Hu MD Active ELMIRON 100 MG ORAL CAPSULE 2 tablets in the am and 1 tablet at hs PENTOSAN POLYSULFATE SODIUM 56769072911 No Longer Active Robert Hu MD Active MUCINEX D 60-600 MG ORAL TABLET EXTENDED RELEASE 12 HOUR 1 t ab po q am PSEUDOEPHEDRINE-GUAIFENESIN 60957241099 No Longer Act nael Carlton Hu MD Active MUCINEX DM MAXIMUM STRENGTH 60-1200 MG ORAL TABLET EXT ENDED RELEASE 12 HOUR 1 tab po q am DEXTROMETHORPHAN-GUAIFENESIN 08767226003 No Longer Active Carlton Hu MD Active TUSSIONEX PENNKINETIC ER 10-8 MG/5ML ORAL SUSPENSION E XTENDED RELEASE 5ml po q12hr PRN Cough HYDROCOD POLST-CHLORPHEN POLST 5 7395260467 No Longer Active Carlotn Hu MD Active POTASSIUM CHLORIDE ER 20 MEQ ORAL TABLET EXTENDED RELE ASE Take 1 by mouth 4 times daily for 7 days POTASSIUM CHLORIDE 02054182258 No Longer Active Carlton Hu MD Active ZITHROMAX 250 MG ORAL TABLET 2 po today, then 1 po q days 2-5 20 14/09/04 AZITHROMYCIN 37726255952 No Longer Active Elise Whitmore APRN Active TUSSIONEX PENNKINETIC ER 10-8 MG/5ML ORAL SUSPENSION E XTENDED RELEASE 5 ml twice a day as needed for cough HYDROCOD POLST-CHLORPH EN POLST 23758653578 No Longer Active Elise Whitmore APRN Active MONTELUKAST SODIUM 10 MG ORAL TABLET 1 po daily for Allergy MONTELUKAST SODIUM 75521191501 Active Carlton Hu MD Ac tive TUSSIONEX PENNKINETIC ER 10-8 MG/5ML ORAL SUSPENSION E XTENDED RELEASE 5ml po q12hr PRN Cough HYDROCOD POLST-CHLORPHEN POLST 5 9503450237 No Longer Active Hugo Restrepo MD Active GABAPENTIN 100 MG ORAL CAPSULE 1 po BID for fibromyalgia GABAPENTIN 24196109837 Active Carlton Hu MD Active LYRICA 100 MG ORAL CAPSULE Take 1 tab po BID for fibromyalgia 20 11/08/21 PREGABALIN 37089578847 No Longer Active Elise Whitmore APRN Active PROAIR HFA 108 (90 Base) MCG/ACT INHALATION AEROSOL SO LUTION 2 puffs four times a day as needed ALBUTEROL SULFATE 49676045482 Active Lyndsay Whitmore APRN Active PREDNISONE 20 MG ORAL TABLET 2 tabs daily for 3 days, 1 tab daily for 3 days, 1/2 tab daily for 2 days PREDNISONE 87142264690 No Longer Active Venullina Gege RICEN Active TUSSIONEX PENNKINETIC ER 10-8 MG/5ML ORAL SUSPENSION E XTENDED RELEASE 5 mL PO q 12 hrs PRN cough HYDROCOD POLST-CHLORPHEN POLST 598874 78879 No Longer Active Jillina Frazell RV REPAIRER Active FLUTICASONE PROPIONATE 50 MCG/ACT NASAL SUSPENSION 2 s prays each nostril daily until bottle is empty FLUTICASONE PROPIONATE 760203011 99 No Longer Active Jillina Frazell RV REPAIRER Active ASMANEX 60 METERED DOSES 220 MCG/INH INHALATION AEROSO L POWDER BREATH ACTIVATED 1 puff bid with rinse after MOMETASONE FUROATE 4185785 4102 No Longer Active Jillina Frazell RV REPAIRER Active ZITHROMAX Z-REYNA 250 MG ORAL TABLET 2 today, then 1 daily for 4 d ays AZITHROMYCIN 94731883420 No Longer Active Elise Whitmore APRN Active TUSSIONEX PENNKINETIC ER 10-8 MG/5ML ORAL SUSPENSION E XTENDED RELEASE 5ml po q12hr PRN Cough HYDROCOD POLST-CHLORPHEN POLST 5 5250738792 No Longer Active Elise Whitmore APRN Active PREDNISONE 20 MG ORAL TABLET 2 tabs daily for 3 days, 1 tab daily for 3 days, 1/2 tab daily for 2 days PREDNISONE 03655597212 No Longer Active Diya De Guzman APRN Active AMOXICILLIN 500 MG ORAL CAPSULE 2 po BID x 10 days 201 09/29/08 AMOXICILLIN 51890982592 No Longer Active Jillina Gege RICEN Act nael SINGULAIR 10 MG ORAL TABLET 1 po qday for allergies 20 14/01/12 MONTELUKAST SODIUM 30981546229 No Longer Active Carlton Hu MD Active LEVAQUIN 500 MG ORAL TABLET 1 tablet by mouth daily 20 13/09/24 LEVOFLOXACIN 49871730436 No Longer Active Carlton Hu MD Acti ve FLUTICASONE PROPIONATE 50 MCG/ACT NASAL SUSPENSION 2 s prays each nostril daily for 2 weeks, then 1 spray each nostril daily. FLUTICASONE PROPIONATE 27637157140 Active Elise Whitmore APRN Active ZITHROMAX 250 MG ORAL TABLET 2 po today, then 1 po q days 2-5 20 13/08/10 AZITHROMYCIN 88935747103 No Longer Active Elise Whitmore APRN Active XANAX 0.5 MG ORAL TABLET one tablet by mouth daily prn anxiety 2015 ALPRAZOLAM 75540414763 Active Carlton Hu MD Active CYMBALTA 30 MG ORAL CAPSULE DELAYED RELEASE PARTICLES 1 cap by mouth daily for depression DULOXETINE HCL 95210648439 Active Carlton beltrán MD Active CEFDINIR 300 MG ORAL CAPSULE 1 po BID x 10 days CEFDINIR 55572266350 No Longer Active Carlton Hu MD Active ZOCOR 40 MG ORAL TABLET 1 tab by mouth daily SI MVASTATIN 22619220255 No Longer Active Carlton Hu MD Active CYCLOBENZAPRINE HCL 10 MG ORAL TABLET 1 tablet by mouth BID prn had pain CYCLOBENZAPRINE HCL 53775106223 No Longer Active Jayden Hu MD Active LEVOFLOXACIN 500 MG ORAL TABLET 1 tab PO daily x 10 days LEVOFLOXACIN 06397772487 No Longer Active Carlton Hu MD Acti ve PREDNISONE 20 MG ORAL TABLET 3 tab PO qd x 2d, 2 tab P O qd x 2d, 1 tab PO qd x 2d, 1/2 tab PO qd x 2d PREDNISONE 99119402544 No Lo nger Active Carlton Hu MD Active FLUTICASONE PROPIONATE 50 MCG/ACT NASAL SUSPENSION 1 t o 2 sprays each nostril daily FLUTICASONE PROPIONATE 66381940791 No Longer Ac tive Blaine HERNANDEZ Active CHERATUSSIN AC 100-10 MG/5ML ORAL SYRUP 1 tsp by mouth every 4 hours as needed for cough GUAIFENESIN-CODEINE 43779643021 No Longe r Active Blaine HERNANDEZ Active PROMETHAZINE-CODEINE 6.25-10 MG/5ML ORAL SYRUP 1 tsp b y mouth every 6 hours if needed for cough PROMETHAZINE-CODEINE 82683887178 No Longer Active Blaine HERNANDEZ Active CHERATUSSIN AC 100-10 MG/5ML ORAL SYRUP 1 tsp by mouth every 4 hours as needed for cough GUAIFENESIN-CODEINE 46390596294 No Longe r Active Blaine HERNANDEZ Active ZITHROMAX Z-REYNA 250 MG ORAL TABLET 2 today, then 1 daily for 4 d ays AZITHROMYCIN 43186402127 No Longer Active Columba Parrish Act nael ZITHROMAX 250 MG ORAL TABLET 2 po today, then 1 po q days 2-5 20 14/03/21 AZITHROMYCIN 18939285657 No Longer Active Carlton Hu MD Active ZITHROMAX Z-REYNA 250 MG ORAL TABLET 2 today, then 1 daily for 4 d ays AZITHROMYCIN 31524762005 No Longer Active Columba Parrish Act nael AUGMENTIN 875-125 MG ORAL TABLET 1 po BID x 10 days 13/01/20 AMOXICILLIN-POT CLAVULANATE 05154011617 No Longer Active Diya Daphnebrayan KHAN Active ZITHROMAX 250 MG ORAL TABLET 2 po today, then 1 po q days 2-5 12/08/14 AZITHROMYCIN 88656191904 No Longer Active Carlton Hu MD Active TRAMADOL HCL 50 MG ORAL TABLET 1 po tid with ES Tylenol TRAMADOL HCL 81757515347 Active Carlton Hu MD Active PREMARIN 0.625 MG ORAL TABLET TAKE 1 TAB BY MOUTH DAILY ESTROGENS CONJUGATED 84474266996 No Longer Active Ridge Bess DO A ctive CYMBALTA 30 MG ORAL CAPSULE DELAYED RELEASE PARTICLES 1 cap by mouth daily DULOXETINE HCL 35097370698 No Longer Active Ridge tam DO Active AMOXICILLIN 500 MG ORAL CAPSULE 1 tab by mouth 3 times daily x 10 days AMOXICILLIN 39129793925 No Longer Active Carlton bustamante MD Active AMOXICILLIN 500 MG ORAL CAPSULE 1 tab by mouth 3 times daily x 10 days AMOXICILLIN 96970846461 No Longer Active Carlton bustamante MD Active PROMETHAZINE-CODEINE 6.25-10 MG/5ML ORAL SYRUP 1 tsp b y mouth every 8 hours prn cough PROMETHAZINE-CODEINE 94719754889 No Longer Acti ve Carlton Hu MD Active MEDROL 4 MG ORAL TABLET THERAPY PACK 6 pills x 1 day, then 5 pills x 1 day then 4 pills x 1 day, then 3 pills x 1 day, then 2 pills x 1 day, then 1 pill x 1 day, then stop METHYLPREDNISOLONE 67779174475 No Long er Active Perez Mora MD Active AZITHROMYCIN 250 MG ORAL TABLET 2 po qd x 1 day, then 1 po q d x 4 days AZITHROMYCIN 76267684414 No Longer Active Perez Ambriz MD Active SYMBICORT 160-4.5 MCG/ACT INHALATION AEROSOL 2 puffs bid wit h rinse after BUDESONIDE-FORMOTEROL FUMARATE 72369373538 N o Longer Active Perez Mora MD Active LYRICA 75 MG ORAL CAPSULE TAKE 1 CAPSULE BY MOUTH TWICE DAILY PREGABALIN 96526575563 No Longer Active Carlton Hu MD Acti ve TOPAMAX 25 MG ORAL TABLET 1 qHS x 1 week, then 1 BID x 1 week, then 1 qAM and 2 qHS x 1 week, then 2 BID (migraine prevention) T OPIRAMATE 67202386233 No Longer Active Jerica FUENTES Active TOPAMAX 50 MG ORAL TABLET take 1 tab po BID for migraines. 07/02 TOPIRAMATE 42324241349 No Longer Active Jerica FUENTES Active TOPAMAX 100 MG ORAL TABLET Take 1 tablet po bid TO PIRAMATE 49657001306 Active Carlton Hu MD Active TRIAMCINOLONE ACETONIDE 0.1 % EXTERNAL CREAM apply three roger es daily prn rash TRIAMCINOLONE ACETONIDE 48282740334 No Longer Active Carlton Hu MD Active PAXIL 40 MG ORAL TABLET take 1 tab po qday for depression 0 PAROXETINE HCL 12485008806 Active Carlton Hu MD Active CHERATUSSIN AC 100-10 MG/5ML ORAL SYRUP 5ml po q6hr PRN Cough 20 13/04/14 GUAIFENESIN-CODEINE 91791859900 No Longer Active Carlton Hu MD Active MEDROL 4 MG ORAL TABLET THERAPY PACK 6 tabs on day 1, 5 tabs on day 2, 4 tabs on day 3, 3 tabs on day 4, 2 tabs on day 5, 1 tab on day 6 2013 METHYLPREDNISOLONE 43948503548 No Longer Active Perez Mora MD Active AZITHROMYCIN 250 MG ORAL TABLET 2 po qd x 1 day, then 1 po q d x 4 days AZITHROMYCIN 90673751557 No Longer Active Perez Ambriz MD Active PROPRANOLOL HCL 60 MG ORAL TABLET 1 PO Q D PROPRANOLOL HCL 46888197171 No Longer Active Perez Mora MD Activ e CHERATUSSIN AC 100-10 MG/5ML ORAL SYRUP take one tsp po Q 6h ours prn cough GUAIFENESIN-CODEINE 43955540938 No Longer Active Zia Mora MD Active AUGMENTIN 875-125 MG ORAL TABLET 1 tab by mouth twice daily with food AMOXICILLIN-POT CLAVULANATE 90229250013 No Longer Act nael Perez Mora MD Active CHERATUSSIN AC 100-10 MG/5ML ORAL SYRUP 1 tsp by mouth every 4 hours as needed for cough GUAIFENESIN-CODEINE 31495607784 No Longe r Active Hugo Restrepo MD Active ACETAMINOPHEN-CODEINE #3 300-30 MG ORAL TABLET 1 PO Q 4-6 HRS ND N PAIN ACETAMINOPHEN-CODEINE 24965379504 No Longer Active Hugo Restrepo MD Active LEVAQUIN 500 MG ORAL TABLET take one po QD LEVO FLOXACIN 65407799252 No Longer Active Griffin HERNANDEZ Active PREDNISONE 20 MG ORAL TABLET Take 3 tabs daily for 3 d ays, 2 tabs daily for 3 days, 1 tab daily for 3 days, 1/2 tab daily for 3 days 11/07 PREDNISONE 91668647736 No Longer Active Carlton Hu MD Acti ve AVELOX 400 MG ORAL TABLET 1 tab by mouth daily MOXIFLOXACIN HCL 66897525554 No Longer Active Carlton Hu MD Active CHERATUSSIN AC 100-10 MG/5ML ORAL SYRUP 1 tsp by mouth every 4 hours as needed for cough GUAIFENESIN-CODEINE 08101660171 No Longe r Active Hugo Restrepo MD Active AVELOX 400 MG ORAL TABLET 1 tab by mouth daily MOXIFLOXACIN HCL 24954048860 No Longer Active Marcy De La Rosa MD PhD Active TERBINAFINE HCL 250 MG ORAL TABLET 1 qDay T ERBINAFINE HCL 13587305469 No Longer Active Marcy De La Rosa MD PhD Active CHERATUSSIN AC 100-10 MG/5ML ORAL SYRUP 1 tsp by mouth every 4 hours as needed for cough GUAIFENESIN-CODEINE 64483536198 No Longe r Active Marcy De La Rosa MD PhD Active AVELOX 400 MG ORAL TABLET 1 tab by mouth daily MOXIFLOXACIN HCL 59806959832 No Longer Active Marcy De La Rosa MD PhD Active HYDROCODONE-ACETAMINOPHEN 5-325 MG ORAL TABLET 1 po q 6hr PRN co ugh HYDROCODONE-ACETAMINOPHEN 77729582429 No Longer Active Marcy De La Rosa MD PhD Active PREDNISONE 20 MG ORAL TABLET 2 tabs daily for 3 days, 1 tab daily for 3 days, 1/2 tab daily for 2 days PREDNISONE 19183005805 No Longer Active Carlton Hu MD Active CEFDINIR 300 MG ORAL CAPSULE by mouth twice a day 2011 CEFDINIR 70877270588 No Longer Active Carlton Hu MD Acti ve HYDROCHLOROTHIAZIDE 25 MG ORAL TABLET 1 TAB PO DAILY HYDROCHLOROTHIAZIDE 10153427168 Active Carlton Hu MD A ctive ACETAMINOPHEN-CODEINE #3 300-30 MG ORAL TABLET 1 tablet po q 4-6 hrs prn pain ACETAMINOPHEN-CODEINE 33838925932 No Longer Active Ridge Bess DO Active ZITHROMAX 250 MG ORAL TABLET 2 po today, then 1 po q days 2-5 20 03/07/07 AZITHROMYCIN 50576537635 No Longer Active Carlton Hu MD Active CHERATUSSIN AC 100-10 MG/5ML ORAL SYRUP take 1 tsp po q4-6 h ours prn cough GUAIFENESIN-CODEINE 12946202995 No Longer Active Jayden Hu MD Active ACETAMINOPHEN-CODEINE #3 300-30 MG ORAL TABLET 1 PO Q 4-6 HR PRN PAIN ACETAMINOPHEN-CODEINE 96864347067 No Longer Active Arnol Hu MD Active LORTAB 7.5-500 MG/15ML ORAL ELIXIR 7.5 ml po q 4 hour prn cough HYDROCODONE-ACETAMINOPHEN 52472570714 No Longer Active Carlton Hu MD Active PREDNISONE 20 MG ORAL TABLET 1 po bid 3 days, then 1 po q day 3 days PREDNISONE 24452498403 No Longer Active Carlton Hu MD Active CEFDINIR 300 MG ORAL CAPSULE by mouth twice a day 2011 CEFDINIR 53659976035 No Longer Active Carlton Hu MD Acti ve CEFDINIR 300 MG ORAL CAPSULE by mouth twice a day 2010 CEFDINIR 44085057724 No Longer Active Carlton Hu MD Acti ve CEFDINIR 300 MG ORAL CAPSULE by mouth twice a day 2010 CEFDINIR 72759496584 No Longer Active Carlton Hu MD Acti ve TESSALON PERLES 100 MG ORAL CAPSULE 1 tablet by mouth 3 times daily as needed for cough BENZONATATE 77004502856 No Longer Active Carlton Hu MD Active CEFDINIR 300 MG ORAL CAPSULE by mouth twice a day 2010 CEFDINIR 25393829254 No Longer Active Carlton Hu MD Acti ve ZITHROMAX Z-REYNA 250 MG ORAL TABLET 2 today, then 1 daily for 4 d ays AZITHROMYCIN 21919371868 No Longer Active Hugo Restrepo MD Active TESSALON PERLES 100 MG ORAL CAPSULE 1 tablet by mouth 3 times daily as needed for cough TESSALON PERLES 100 MG ORAL CAPSULE 54193 7 BENZONATATE Inactive PREDNISONE 20 MG ORAL TABLET 1 po bid 3 days, then 1 po q day 3 days PREDNISONE 20 MG ORAL TABLET 544635 PREDNISONE [place] ctive LORTAB 7.5-500 MG/15ML ORAL ELIXIR 7.5 [...] cough CHERATUSSIN AC 100-10 MG/5ML ORAL SYRUP 288847 GUAIFENESIN-CODEINE Inactive ACETAMINOPHEN-CODEINE #3 300-30 MG ORAL TABLET 1 tablet po q 4-6 hrs prn pain ACETAMINOPHEN-CODEINE #3 300-30 MG ORAL TABLET ACETAMINOPHEN-CODEINE Inactive HYDROCODONE-ACETAMINOPHEN 5-325 MG ORAL TABLET 1 po q 6hr PRN co ugh HYDROCODONE-ACETAMINOPHEN 5-325 MG ORAL TABLET 385322 HYDROCODONE-ACETAMINOPHEN Inactive AVELOX 400 MG ORAL TABLET 1 tab by mouth daily AVELOX 400 MG ORAL TABLET 674712 MOXIFLOXACIN HCL Inactive CHERATUSSIN AC 100-10 MG/5ML ORAL SYRUP 1 tsp by mouth every 4 hours as needed for cough CHERATUSSIN AC 100-10 MG/5ML ORAL SYRUP 9 61035 GUAIFENESIN-CODEINE Inactive TERBINAFINE HCL 250 MG ORAL TABLET 1 qDay 07/08 TERBINAFINE HCL 250 MG ORAL TABLET 678672 TERBINAFINE HCL Inactive CHERATUSSIN AC 100-10 MG/5ML ORAL SYRUP 1 tsp by mouth every 4 hours as needed for cough CHERATUSSIN AC 100-10 MG/5ML ORAL SYRUP 9 02967 GUAIFENESIN-CODEINE Inactive ACETAMINOPHEN-CODEINE #3 300-30 MG ORAL TABLET 1 PO Q 4-6 HRS ND N PAIN ACETAMINOPHEN-CODEINE #3 300-30 MG ORAL TABLET ACETAMINOPHEN-CODEINE Inactive CHERATUSSIN AC 100-10 MG/5ML ORAL SYRUP 1 tsp by mouth every 4 hours as needed for cough CHERATUSSIN AC 100-10 MG/5ML ORAL SYRUP 9 08000 GUAIFENESIN-CODEINE Inactive AUGMENTIN 875-125 MG ORAL TABLET 1 tab by mouth twice daily with food AUGMENTIN 875-125 MG ORAL TABLET 214201 AMOXICIL MADELINE-POT CLAVULANATE Inactive CHERATUSSIN AC 100-10 MG/5ML ORAL SYRUP take one tsp po Q 6h ours prn cough CHERATUSSIN AC 100-10 MG/5ML ORAL SYRUP 156080 GUAIFENESIN-CODEINE Inactive PROPRANOLOL HCL 60 MG ORAL TABLET 1 PO Q D PROPRANOLOL HCL 60 MG ORAL TABLET 240733 PROPRANOLOL HCL Inactive TOPAMAX 50 MG ORAL TABLET take 1 tab po BID for migraines. 07/02 TOPAMAX 50 MG ORAL TABLET 011154 TOPIRAMATE Inacti ve TOPAMAX 25 MG ORAL TABLET 1 qHS x 1 week, then 1 BID x 1 week, then 1 qAM and 2 qHS x 1 week, then 2 BID (migraine prevention) TOPAMAX 25 MG ORAL TABLET 596652 TOPIRAMATE Inactive LYRICA 75 MG ORAL CAPSULE TAKE 1 CAPSULE BY MOUTH TWICE DAILY LYRICA 75 MG ORAL CAPSULE PREGABALIN Inactive SYMBICORT 160-4.5 MCG/ACT INHALATION AEROSOL 2 puffs bid wit h rinse after SYMBICORT 160-4.5 MCG/ACT INHALATION AEROSOL BUDESONIDE- FORMOTEROL FUMARATE Inactive PROMETHAZINE-CODEINE 6.25-10 MG/5ML ORAL SYRUP 1 tsp b y mouth every 8 hours prn cough PROMETHAZINE-CODEINE 6.25-10 MG/ 5ML ORAL SYRUP 907541 PROMETHAZINE-CODEINE Inactive CYMBALTA 30 MG ORAL CAPSULE DELAYED RELEASE PARTICLES 1 cap by mouth daily CYMBALTA 30 MG ORAL CAPSULE DELAYED RELE ASE PARTICLES 172366 DULOXETINE HCL Inactive PREMARIN 0.625 MG ORAL TABLET TAKE 1 TAB BY MOUTH DAILY PREMARIN 0.625 MG ORAL TABLET ESTROGENS CONJUGATED Inactive CHERATUSSIN AC 100-10 MG/5ML ORAL SYRUP 1 tsp by mouth every 4 hours as needed for cough CHERATUSSIN AC 100-10 MG/5ML ORAL SYRUP 9 70286 GUAIFENESIN-CODEINE Inactive PROMETHAZINE-CODEINE 6.25-10 MG/5ML ORAL SYRUP 1 tsp b y mouth every 6 hours if needed for cough PROMETHAZINE-CODEINE 6.25-10 MG/5ML ORAL SYRUP 551758 PROMETHAZINE-CODEINE Inactive CHERATUSSIN AC 100-10 MG/5ML ORAL SYRUP 1 tsp by mouth every 4 hours as needed for cough CHERATUSSIN AC 100-10 MG/5ML ORAL SYRUP 9 98096 GUAIFENESIN-CODEINE Inactive FLUTICASONE PROPIONATE 50 MCG/ACT NASAL SUSPENSION 1 t o 2 sprays each nostril daily FLUTICASONE PROPIONATE 50 MCG/AC T NASAL SUSPENSION 8240435 FLUTICASONE PROPIONATE Inactive PREDNISONE 20 MG ORAL TABLET 3 tab PO qd x 2d, 2 tab P O qd x 2d, 1 tab PO qd x 2d, 1/2 tab PO qd x 2d PREDNISONE 20 MG ORAL TAB LET 185741 PREDNISONE Inactive LEVOFLOXACIN 500 MG ORAL TABLET 1 tab PO daily x 10 days LEVOFLOXACIN 500 MG ORAL TABLET 749368 LEVOFLOXACIN Inactive CYCLOBENZAPRINE HCL 10 MG ORAL TABLET 1 tablet by mouth BID prn had pain CYCLOBENZAPRINE HCL 10 MG ORAL TABLET 923485 CYCLOBENZAPRINE HCL Inactive ZOCOR 40 MG ORAL TABLET 1 tab by mouth daily 4 ZOCOR 40 MG ORAL TABLET 962882 SIMVASTATIN Inactive TUSSIONEX PENNKINETIC ER 10-8 MG/5ML [...] FLUTICASONE PROPIO EFE 50 MCG/ACT NASAL SUSPENSION 9681382 FLUTICASONE PROPIONATE Inactive TUSSIONEX PENNKINETIC ER 10-8 [...] ays ZITHROMAX Z-REYNA 250 MG ORAL TABLET 447018 AZITHROMYCIN Inactive CEFDINIR 300 MG ORAL CAPSULE by mouth twice a day 2010 CEFDINIR 300 MG ORAL CAPSULE 521725 CEFDINIR Inactive CEFDINIR 300 MG ORAL CAPSULE by mouth twice a day 2010 CEFDINIR 300 MG ORAL CAPSULE 964032 CEFDINIR Inactive CEFDINIR 300 MG ORAL CAPSULE by mouth twice a day 2010 CEFDINIR 300 MG ORAL CAPSULE 603296 CEFDINIR Inactive CEFDINIR 300 MG ORAL CAPSULE by mouth twice a day 2011 CEFDINIR 300 MG ORAL CAPSULE 433002 CEFDINIR Inactive ZITHROMAX 250 MG ORAL TABLET 2 po today, then 1 po q days 2-5 20 03/07/07 ZITHROMAX 250 MG ORAL TABLET 836961 AZITHROMYCIN [place] ctive CEFDINIR 300 MG ORAL CAPSULE by mouth twice a day 2011 CEFDINIR 300 MG ORAL CAPSULE 20020704 CEFDINIR Inactive PREDNISONE 20 MG ORAL TABLET 2 tabs daily for 3 days, 1 tab daily for 3 days, 1/2 tab daily for 2 days PREDNISONE 20 MG ORAL T ABLET 962386 PREDNISONE Inactive AVELOX 400 MG ORAL TABLET 1 tab by mouth daily AVELOX 400 MG ORAL TABLET 245731 MOXIFLOXACIN HCL Inactive AVELOX 400 MG ORAL TABLET 1 tab by mouth daily AVELOX 400 MG ORAL TABLET 073675 MOXIFLOXACIN HCL Inactive PREDNISONE 20 MG ORAL TABLET Take 3 tabs daily for 3 d ays, 2 tabs daily for 3 days, 1 tab daily for 3 days, 1/2 tab daily for 3 days 11/07 PREDNISONE 20 MG ORAL TABLET 546133 PREDNISONE Inactive LEVAQUIN 500 MG ORAL TABLET take one po QD LEVAQUIN 500 MG ORAL TABLET 240645 LEVOFLOXACIN Inactive AZITHROMYCIN 250 MG ORAL TABLET 2 po qd x 1 day, then 1 po q d x 4 days AZITHROMYCIN 250 MG ORAL TABLET 026167 AZITHROMY GIOVANNI Inactive MEDROL 4 MG ORAL TABLET THERAPY PACK 6 tabs on day 1, 5 tabs on day 2, 4 tabs on day 3, 3 tabs on day 4, 2 tabs on day 5, 1 tab on day 6 2013 MEDROL 4 MG ORAL TABLET THERAPY PACK 309986 METHYLPREDNISOLONE [place] ctive CHERATUSSIN AC 100-10 MG/5ML ORAL SYRUP 5ml po q6hr PRN Cough 20 13/04/14 CHERATUSSIN AC 100-10 MG/5ML ORAL SYRUP 768533 GUAIFENE SIN-CODEINE Inactive TRIAMCINOLONE ACETONIDE 0.1 % EXTERNAL CREAM apply three roger es daily prn rash TRIAMCINOLONE ACETONIDE 0.1 % EXTERNAL CREAM 101 4314 TRIAMCINOLONE ACETONIDE Inactive AZITHROMYCIN 250 MG ORAL TABLET 2 po qd x 1 day, then 1 po q d x 4 days AZITHROMYCIN 250 MG ORAL TABLET 407482 AZITHROMY GIOVANNI Inactive MEDROL 4 MG ORAL TABLET THERAPY PACK 6 pills x 1 day, then 5 pills x 1 day then 4 pills x 1 day, then 3 pills x 1 day, then 2 pills x 1 day, then 1 pill x 1 day, then stop MEDROL 4 MG ORAL TABLET THERAPY PACK 427992 METHYLPREDNISOLONE Inactive AMOXICILLIN 500 MG ORAL CAPSULE 1 tab by mouth 3 times daily x 10 days AMOXICILLIN 500 MG ORAL CAPSULE 567980 AMOXICILL IN Inactive AMOXICILLIN 500 MG ORAL CAPSULE 1 tab by mouth 3 times daily x 10 days AMOXICILLIN 500 MG ORAL CAPSULE 380767 AMOXICILL IN Inactive ZITHROMAX 250 MG ORAL TABLET 2 po today, then 1 po q days 2-5 20 12/08/14 ZITHROMAX 250 MG ORAL TABLET 189612 AZITHROMYCIN [place] ctive AUGMENTIN 875-125 MG ORAL TABLET 1 po BID x 10 days 20 13/01/20 AUGMENTIN 875-125 MG ORAL TABLET 826749 AMOXICILLIN-POT CLAVULANATE Inactive ZITHROMAX Z-REYNA 250 MG ORAL TABLET 2 today, then 1 daily for 4 d ays ZITHROMAX Z-REYNA 250 MG ORAL TABLET 310032 AZITHROMYCIN Inactive ZITHROMAX 250 MG ORAL TABLET 2 po today, then 1 po q days 2-5 20 14/03/21 ZITHROMAX 250 MG ORAL TABLET 687130 AZITHROMYCIN [place] ctive ZITHROMAX Z-REYNA 250 MG ORAL TABLET 2 today, then 1 daily for 4 d ays ZITHROMAX Z-REYNA 250 MG ORAL TABLET 674923 AZITHROMYCIN Inactive CEFDINIR 300 MG ORAL CAPSULE 1 po BID x 10 days 06/21 CEFDINIR 300 MG ORAL CAPSULE 20020704 CEFDINIR Inactive ZITHROMAX 250 MG ORAL TABLET 2 po today, then 1 po q days 2-5 20 13/08/10 ZITHROMAX 250 MG ORAL TABLET 461321 AZITHROMYCIN [place] ctive LEVAQUIN 500 MG ORAL TABLET 1 tablet by mouth daily 20 13/09/24 LEVAQUIN 500 MG ORAL TABLET 19971102 LEVOFLOXACIN Inactive SINGULAIR 10 MG ORAL TABLET 1 po qday for allergies 20 14/01/12 SINGULAIR 10 MG ORAL TABLET 20010504 MONTELUKAST SODIUM Inactive AMOXICILLIN 500 MG ORAL CAPSULE 2 po BID x 10 days 201 09/29/08 AMOXICILLIN 500 MG ORAL CAPSULE 577257 AMOXICILLIN Inactive PREDNISONE 20 MG ORAL TABLET 2 tabs daily for 3 days, 1 tab daily for 3 days, 1/2 tab daily for 2 days PREDNISONE 20 MG ORAL T ABLET 869452 PREDNISONE Inactive ZITHROMAX Z-REYNA 250 MG ORAL TABLET 2 today, then 1 daily for 4 d ays ZITHROMAX Z-REYNA 250 MG ORAL TABLET 150416 AZITHROMYCIN Inactive PREDNISONE 20 MG ORAL TABLET 2 tabs daily for 3 days, 1 tab daily for 3 days, 1/2 tab daily for 2 days PREDNISONE 20 MG ORAL T ABLET 765414 PREDNISONE Inactive ZITHROMAX 250 MG ORAL TABLET 2 po today, then 1 po q days 2-5 14/09/04 ZITHROMAX 250 MG ORAL TABLET 847306 AZITHROMYCIN [place] ctive AMOXICILLIN 500 MG ORAL CAPSULE 1 cap by mouth three times a day AMOXICILLIN 500 MG ORAL CAPSULE 910198 AMOXICILLIN Inactive TERBINAFINE HCL 250 MG ORAL TABLET 1 qDay for nail fungus 7 TERBINAFINE HCL 250 MG ORAL TABLET 844853 TERBINAFINE HCL Inact nael Vital Signs Date [...] - Chem istry sodium, serum 132 mmol/L [phone]/07/12 potassium, serum 2.7 mmol/L 3.5-5.2 chloride, serum 93 mmol/L 98-107 carbon dioxide, venous blood 30.8 mmol/L 21.0-32 .0 blood glucose 107 mg/dL 65-110 calcium, serum 9.3 mg/dL 8.5-10.1 urea nitrogen, blood 12 mg/dL 7-18 creatinine, serum 1.00 mg/dL 0.60-1.30 sodium, serum 142 mmol/L 402-188 5044/07/17 potassium, serum 4.2 mmol/L 3.5-5.2 chloride, serum 106 mmol/L 98-107 carbon dioxide, venous blood 29.9 mmol/L 21.0-32 .0 blood glucose 108 mg/dL 65-110 calcium, serum 9.1 mg/dL 8.5-10.1 urea nitrogen, blood 11 mg/dL 7-18 creatinine, serum 0.81 mg/dL 0.60-1.30 Lab Report: Rapid Strep - Lab Microbial identification kit, rapid strep method Negative Negative Encounters Code Encounter Date Provider Facility [id number] Level 3 Est. 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 Patient 13:35:41 CUSTOMER LOGISTICS MANAGER Carlton rich MD [facility] CPT-16845 Level 3 Est. Patient 10:03:52 CUSTOMER LOGISTICS MANAGER Carlton rich MD [facility] CPT-82090 Level 3 Est. Patient 12:17:50 CDT [facility] [facility] CPT-82964 Level 3 Est. Patient 13:42:38 CDT Italo KHAN [facility] CPT-13609 Level 3 Est. Patient 13:23:51 CDT Diya Mariana holtgideon [facility] CPT-99177 Level 3 Est. Patient 14:22:19 CUSTOMER LOGISTICS MANAGER Diya Mariana cobian [facility] CPT-21297 Level 3 Est. Patient 10:11:46 CDT Carlton rich MD [facility] CPT-38307 Level 3 Est. Patient 17:29:43 CDT Elise Cesar spaulding [facility] CPT-25325 Level 3 Est. Patient 11:58:06 CDT Elise And chelly [facility] CPT-96689 Level 4 Est. Patient 14:36:51 CDT Carlton rich MD [facility]-46537 Level 3 Est. Patient 18:16:00 CUSTOMER LOGISTICS MANAGER Blaine Freeman [facility] CPT-28167 Level 3 Est. Patient 09:45:49 CUSTOMER LOGISTICS MANAGER Carlton rich MD [facility] CPT-17432 Level 3 Est. Patient 13:19:20 CDT Carlton rich MD [facility] CPT-77160 Level 3 Est. Patient 13:06:43 CDT Ridge tam DO [facility] CPT-38246 Level 3 Est. Patient 10:03:07 CDT Perez Mora MD [facility] CPT-42366 Level 3 Est. Patient 19:50:35 CUSTOMER LOGISTICS MANAGER Carlton rich MD [facility] CPT-25373 Level 4 Est. Patient 18:05:01 CUSTOMER LOGISTICS MANAGER Carlton rich MD [facility] CPT-68311 Level 3 Est. Patient 10:45:55 CUSTOMER LOGISTICS MANAGER Hugo Restrepo MD [facility] CPT-44614 Level 3 Est. Patient 14:12:49 CDT Griffin l[facility] CPT-69228 Level 3 Est. Patient 17:37:24 CDT Carlton rich MD [facility] CPT-28148 Level 3 Est. Patient 16:51:54 CDT Carlton rich MD [facility]-48830 Level 3 Est. Patient 12:18:11 CDT Hugo Restrepo MD [facility] CPT-43011 Level 3 Est. Patient 11:30:25 CDT Marcy crisostomo MD PhD [facility] CPT-38645 Level 3 Est. Patient 12:00:47 CUSTOMER LOGISTICS MANAGER Carlton rich MD [facility]-09538 Level 3 Est. Patient 16:31:06 CUSTOMER LOGISTICS MANAGER Carlton rich MD [facility] CPT-88842 Level 3 Est. Patient 16:23:24 CUSTOMER LOGISTICS MANAGER Ridge tam [facility] CPT-96225 Level 3 Est. Patient 12:34:12 CDT Carlton rich MD [facility] CPT-60623 Level 2 Est. Patient 15:43:33 CDT Robi armstrong MD [facility] CPT-18990 Level 4 Est. Patient 14:04:44 CDT Carlton rich MD [facility] CPT-72876 Level 3 Est. Patient 05:47:59 CDT Ridge tam [facility] CPT-86835 Level 3 Est. Patient 13:12:53 CUSTOMER LOGISTICS MANAGER Carlton rich MD [facility]-54981 Level 3 Est. Patient 14:26:53 CDT Hugo Restrepo MD [facility] Procedures Code Procedure Name Date Entry Date Standard Desc ription CPT-J1040 Depo Medrol 80 mg (Methyl Prednisolone A cetate) 10:42:44 CDT CPT-J1100 Decadron 8mg (Dexamethasone) 10:42:44 CDT 2 CPT-J0696 Rocephin 1gm Inj Solr 14:32:13 CDT CPT-J1020 Depo Medrol 60 mg (Methyl Prednisolone A cetate) 14:32:13 CDT CPT-J1100 Decadron 6mg (Dexamethasone) 14:32:13 CDT 2 CPT-47089 Hip bilat min 2V w AP pelvis 13:16:20 CDT 2 CPT-81994 Pelvis only 13:07:33 CDT CPT-78587 Spec Collection and Handling Fee 11:25:12 C DT CPT-66557 Fluzone Quadrivalent Intramuscular Suspe nsion 0.5 ML 14:31:55 CDT CPT-36163 Abx/Therapy Injection 13:28:47 CUSTOMER LOGISTICS MANAGER CPT-J2930 Solu Medrol 125 mg (Methyl Prednisolone Sodium Succinate) 12:00:47 CUSTOMER LOGISTICS MANAGER CPT-92437 Venipuncture Draw Fee 11:33:31 CDT CPT-59186 EKG Trac and Interp 11:21:09 CDT CPT-60171 Chest 2V Frontal and Lat 11:21:09 CDT 12/15 CPT-86001 Venipuncture Draw Fee 08:02:34 CDT CPT-38569 Chest 2V Frontal and Lat 05:47:59 CDT 06/05
[2019-10-08] MEDS ORDERED: HYDROcodone/APAP 5 MG/325 MG (LORTAB) TAB PO PRN (10:15)
[2019-10-08] MEDS ORDERED: GLYCOPYRROLATE 0.2 MG/ML (ROBINUL) 2 ML VIAL ONE (10:15)
[2019-10-08] MEDS ORDERED: predniSONE 20 MG TAB PO ONE (10:15)
[2019-10-08] MEDS ORDERED: NEOSTIGMINE 3 MG/3 ML VIAL ONE (10:15)
[2019-10-08] MEDS ORDERED: ACETAMINOPHEN 325 MG TABLET PO PRN (10:15)
[2019-10-08] MEDS ORDERED: PROMETHAZINE INJ 25 MG/ML (PHENERGAN) AMP IVP PRN (10:15)
--- OUTSIDE RECORDS SUMMARY | 2019-10-08 10:15 | XMS REPORT | Clinical Summary ---
Author Author Caitlin, Juliana Martinez Organization [facility] Address Unknown Phone Unavailable Allergies, Adverse Reactions, Alerts Allergy Name Reaction Description Start Date Severity Status Pr ovider No Known Allergies [facility] Conditions or Problems Problem Name Problem [...] 4 hours as needed for cough GUAIFENESIN-CODEINE 20244504400 Active Carlton banks MD Active ZITHROMAX 250 MG TAB 2 po today, then 1 po q days 2-5 AZITHROMYCIN 45507244758 No Longer Active Carlton Hu MD Acti ve ZITHROMAX Z-REYNA 250 MG TABS 2 today, then 1 daily for 4 days 201 08/07/20 AZITHROMYCIN 02959385292 No Longer Active Columba Raida Act nale FLUTICASONE PROPIONATE 50 MCG/ACT SUSP 1 to 2 sprays each no stril daily FLUTICASONE PROPIONATE 65397147287 Active Jillina Frazel l CORE DRILLER HELPER Active PROMETHAZINE-CODEINE 6.25-10 MG/5ML SYRP 1 tsp by mout h every 6 hours if needed for cough PROMETHAZINE-CODEINE 37574369604 Active Robert Hu MD Active AUGMENTIN 875-125 MG TAB 1 po BID x 10 days AMOXICILLIN- POT CLAVULANATE 18219241128 No Longer Active Diya Guerrerol CORE DRILLER HELPER Active ZITHROMAX 250 MG TAB 2 po today, then 1 po q days 2-5 AZITHROMYCIN 68709150966 No Longer Active Carlton Hu MD Acti ve TRAMADOL HCL 50 MG TABS 1 po tid with ES Tylenol TRAMADOL HCL 21849275865 Active Carlton Hu MD Active PREMARIN 0.625 MG TABS TAKE 1 TAB BY MOUTH DAILY 07/25 ESTROGENS CONJUGATED 16706893114 No Longer Active Ridge Bess DO Active CYMBALTA 30 MG CPEP 1 cap by mouth daily DULOXE SNEHA HCL 03431502131 No Longer Active Ridge Bess DO Active AMOXICILLIN 500 MG CAP 1 tab by mouth 3 times daily x 10 days 20 14/04/28 AMOXICILLIN 72170828437 No Longer Active Carlton Hu MD Active AMOXICILLIN 500 MG CAP 1 tab by mouth 3 times daily x 10 days 20 13/03/08 AMOXICILLIN 33556101277 No Longer Active Carlton Hu MD Active CHERATUSSIN AC 100-10 MG/5ML SYRP 1 tsp by mouth every 4 hours as needed for cough GUAIFENESIN-CODEINE 72863509201 Active Carlton banks MD Active CYCLOBENZAPRINE HCL 10 MG TABS 1 tablet by mouth BID prn had pain 2 CYCLOBENZAPRINE HCL 92567947132 Active Carlton Hu MD A ctive PROMETHAZINE-CODEINE 6.25-10 MG/5ML SYRP 1 tsp by mouth ever y 8 hours prn cough PROMETHAZINE-CODEINE 96163840381 No Longer Active Robert Hu MD Active MEDROL (REYNA) 4 MG TABS 6 pills x 1 day, then 5 pill s x 1 day then 4 pills x 1 day, then 3 pills x 1 day, then 2 pills x 1 day, then 1 pill x 1 day, then stop METHYLPREDNISOLONE 30900906564 No Longer Active Parris Mora MD Active AZITHROMYCIN 250 MG TABS 2 po qd x 1 day, then 1 po qd x 4 days AZITHROMYCIN 85682314498 No Longer Active Perez Mora MD Active SYMBICORT 160-4.5 MCG/ACT AERO 2 puffs bid with rinse after 2011 BUDESONIDE-FORMOTEROL FUMARATE 15749735286 No Longer Active Perez Mora MD Active LYRICA 75 MG CAPS TAKE 1 CAPSULE BY MOUTH TWICE DAILY 2013 PREGABALIN 11499951221 No Longer Active Carlton Hu MD Active LYRICA 100 MG CAPS Take 1 tab po BID for fibromyalgia PREGABALIN 21958919896 Active Carlton Hu MD Active TOPAMAX 25 MG TABS 1 qHS x 1 week, then 1 BID x 1 week, then 1 qAM and 2 qHS x 1 week, then 2 BID (migraine prevention) TOPIRAMAT E 01378575694 No Longer Active Jerica FUENTES Active TOPAMAX 50 MG TABS take 1 tab po BID for migraines. 12/07/10 TOPIRAMATE 97992994315 No Longer Active Jerica FUENTES Ac tive TOPAMAX 100 MG TABS Take 1 tablet po bid TOPIRAMATE 4999 4482672 Active Carlton Hu MD Active TRIAMCINOLONE ACETONIDE 0.1 % CREA apply three times daily prn r beatrice TRIAMCINOLONE ACETONIDE 41340211069 No Longer Active Carlton Hu MD Active PAXIL 40 MG TAB take 1 tab po qday for depression PAROXETINE HCL 78024749272 Active Carlton Hu MD Active CHERATUSSIN AC 100-10 MG/5ML SYRP 5ml po q6hr PRN Cough GUAIFENESIN-CODEINE 25832849600 No Longer Active Carlton Hu MD Active MEDROL (REYNA) 4 MG TABS 6 tabs on day 1, 5 tabs on d ay 2, 4 tabs on day 3, 3 tabs on day 4, 2 tabs on day 5, 1 tab on day 6 METHYLPREDNISOLONE 57546082180 No Longer Active Perez Mora MD Active AZITHROMYCIN 250 MG TABS 2 po qd x 1 day, then 1 po qd x 4 days AZITHROMYCIN 55882399986 No Longer Active Perez Mora MD Active PROPRANOLOL HCL 60 MG TABS 1 PO Q D PROPRANOL OL HCL 95162877076 No Longer Active Perez Mora MD Active CHERATUSSIN AC 100-10 MG/5ML SYRP take one tsp po Q 6hours prn c ough GUAIFENESIN-CODEINE 44852841578 No Longer Active Perez Means Active AUGMENTIN 875-125 MG TAB 1 tab by mouth twice daily with food 12/03/31 AMOXICILLIN-POT CLAVULANATE 33624191664 No Longer Active Chanel Mora MD Active CHERATUSSIN AC 100-10 MG/5ML SYRP 1 tsp by mouth every 4 hours as needed for cough GUAIFENESIN-CODEINE 50747514838 No Longer Activ e Hugo Restrepo MD Active ACETAMINOPHEN-CODEINE #3 300-30 MG TABS 1 PO Q 4-6 HRS PRN PAIN ACETAMINOPHEN-CODEINE 74288604820 No Longer Active Hugo Restrepo MD Active LEVAQUIN 500 MG TABS take one po QD LEVOFLOXACI N 80036479600 No Longer Active Griffin HERNANDEZ Active PREDNISONE 20 MG TAB Take 3 tabs daily for 3 days , 2 tabs daily for 3 days, 1 tab daily for 3 days, 1/2 tab daily for 3 days P REDNISONE 97650940568 No Longer Active Carlton Hu MD Active AVELOX 400 MG TABS 1 tab by mouth daily MOXIFLO XACIN HCL 00232303019 No Longer Active Carlton Hu MD Active CHERATUSSIN AC 100-10 MG/5ML SYRP 1 tsp by mouth every 4 hours as needed for cough GUAIFENESIN-CODEINE 99528613077 No Longer Activ e Hugo Restrepo MD Active AVELOX 400 MG TABS 1 tab by mouth daily MOXIFLO XACIN HCL 45077376853 No Longer Active Marcy De La Rosa MD PhD Active TERBINAFINE HCL 250 MG TABS 1 qDay TERBINAF INE HCL 43079951625 No Longer Active Marcy De La Rosa MD PhD Active CHERATUSSIN AC 100-10 MG/5ML SYRP 1 tsp by mouth every 4 hours as needed for cough GUAIFENESIN-CODEINE 75010230935 No Longer Activ e Marcy De La Rosa MD PhD Active AVELOX 400 MG TABS 1 tab by mouth daily MOXIFLO XACIN HCL 55297064821 No Longer Active Marcy De La Rosa MD PhD Active HYDROCODONE-ACETAMINOPHEN 5-325 MG TABS 1 po q 6hr PRN cough 201 05/09/16 HYDROCODONE-ACETAMINOPHEN 54179213127 No Longer Active Marcy De La Rosa MD PhD Active PREDNISONE 20 MG TAB 2 tabs daily for 3 days, 1 t ab daily for 3 days, 1/2 tab daily for 2 days PREDNISONE 34344860307 No Longer Active Carlton Hu MD Active CEFDINIR 300 MG CAPS by mouth twice a day CEFDI ODILIA 63405521724 No Longer Active Carlton Hu MD Active ZOCOR 40 MG TAB 1 tab by mouth daily SIMVASTATIN 35660342737 Active Carlton Hu MD Active HYDROCHLOROTHIAZIDE 25 MG TABS 1 TAB PO DAILY H YDROCHLOROTHIAZIDE 31110946965 Active Carlton Hu MD Active ACETAMINOPHEN-CODEINE #3 300-30 MG TABS 1 tablet po q 4-6hrs prn pain ACETAMINOPHEN-CODEINE 79923117690 No Longer Active Ridge Bess DO Active ZITHROMAX 250 MG TAB 2 po today, then 1 po q days 2-5 AZITHROMYCIN 47745033184 No Longer Active Carlton Hu MD Acti ve CHERATUSSIN AC 100-10 MG/5ML SYRP take 1 tsp po q4-6 hours prn c ough GUAIFENESIN-CODEINE 25701072555 No Longer Active Carlton Hu MD Active ACETAMINOPHEN-CODEINE #3 300-30 MG TABS 1 PO Q 4-6 HR PRN PAIN 2 ACETAMINOPHEN-CODEINE 40392431893 No Longer Active Carlton rich MD Active LORTAB 7.5-500 MG/15ML ELIX 7.5 ml po q 4 hour prn cough HYDROCODONE-ACETAMINOPHEN 69561963089 No Longer Active Carlton Hu MD Active PREDNISONE 20 MG TAB 1 po bid 3 days, then 1 po q day 3 days 201 05/03/07 PREDNISONE 42404170760 No Longer Active Carlton Hu MD Active ELMIRON 100 MG CAPS 2 tablets in the am and 1 tablet at hs PENTOSAN POLYSULFATE SODIUM 29740642543 Active Gracie Webster Active CEFDINIR 300 MG CAPS by mouth twice a day CEFDI ODILIA 45284139573 No Longer Active Carlton Hu MD Active CEFDINIR 300 MG CAPS by mouth twice a day CEFDI ODILIA 13891280160 No Longer Active Carlton Hu MD Active CEFDINIR 300 MG CAPS by mouth twice a day CEFDI ODILIA 32150622508 No Longer Active Carlton Hu MD Active TESSALON PERLES 100 MG CAP 1 tablet by mouth 3 times daily a s needed for cough BENZONATATE 39972916893 No Longer Active Carlton bustamante MD Active CEFDINIR 300 MG CAPS by mouth twice a day CEFDI ODILIA 46315369208 No Longer Active Carlton Hu MD Active ZITHROMAX Z-REYNA 250 MG TABS 2 today, then 1 daily for 4 days 201 04/09/17 AZITHROMYCIN 83743041523 No Longer Active Hugo Restrepo MD Active TESSALON PERLES 100 MG CAP 1 tablet by mouth 3 times daily a s needed for cough TESSALON PERLES 100 MG CAP 323982 BENZONATATE I nactive PREDNISONE 20 MG TAB 1 po bid 3 days, then 1 po q day 3 days 201 05/03/07 PREDNISONE 20 MG TAB 907108 PREDNISONE Inactive LORTAB 7.5-500 MG/15ML ELIX 7.5 ml po q 4 hour prn cough LORTAB 7.5-500 MG/15ML ELIX HYDROCODONE-ACETAMINOPHEN Inacti ve ACETAMINOPHEN-CODEINE #3 300-30 MG TABS 1 PO Q 4-6 HR PRN PAIN 2 ACETAMINOPHEN-CODEINE #3 300-30 MG TABS 330877 ACETAMIN OPHEN-CODEINE Inactive CHERATUSSIN AC 100-10 MG/5ML SYRP take 1 tsp po q4-6 hours prn c ough CHERATUSSIN AC 100-10 MG/5ML SYRP 480166 GUAIFENESIN-CO DEINE Inactive ACETAMINOPHEN-CODEINE #3 300-30 MG TABS 1 tablet po q 4-6hrs prn pain ACETAMINOPHEN-CODEINE #3 300-30 MG TABS 641115 ACETAMIN OPHEN-CODEINE Inactive HYDROCODONE-ACETAMINOPHEN 5-325 MG TABS 1 po q 6hr PRN cough 201 05/09/16 HYDROCODONE-ACETAMINOPHEN 5-325 MG TABS 716016 HYDROCODONE-ACETAMINOPHEN Inactive AVELOX 400 MG TABS 1 tab by mouth daily A VELOX 400 MG TABS 644467 MOXIFLOXACIN HCL Inactive CHERATUSSIN AC 100-10 MG/5ML SYRP 1 tsp by mouth every 4 hours as needed for cough CHERATUSSIN AC 100-10 MG/5ML SYRP 745394 GUAIFENESIN-CODEINE Inactive TERBINAFINE HCL 250 MG TABS 1 qDay TERBINAFINE HCL 250 MG TABS 056428 TERBINAFINE HCL Inactive CHERATUSSIN AC 100-10 MG/5ML SYRP 1 tsp by mouth every 4 hours as needed for cough CHERATUSSIN AC 100-10 MG/5ML SYRP 221958 GUAIFENESIN-CODEINE Inactive ACETAMINOPHEN-CODEINE #3 300-30 MG TABS 1 PO Q 4-6 HRS PRN PAIN ACETAMINOPHEN-CODEINE #3 300-30 MG TABS 766513 ACETAMINOPHEN-CODEIN E Inactive CHERATUSSIN AC 100-10 MG/5ML SYRP 1 tsp by mouth every 4 hours as needed for cough CHERATUSSIN AC 100-10 MG/5ML SYRP 499913 GUAIFENESIN-CODEINE Inactive AUGMENTIN 875-125 MG TAB 1 tab by mouth twice daily with food 20 12/03/31 AUGMENTIN 875-125 MG TAB 220275 AMOXICILLIN-POT CLAVULA EFE Inactive CHERATUSSIN AC 100-10 MG/5ML SYRP take one tsp po Q 6hours prn c ough CHERATUSSIN AC 100-10 MG/5ML SYRP 267251 GUAIFENESIN-CO DEINE Inactive PROPRANOLOL HCL 60 MG TABS 1 PO Q D P ROPRANOLOL HCL 60 MG TABS 166203 PROPRANOLOL HCL Inactive TOPAMAX 50 MG TABS take 1 tab po BID for migraines. 12/07/10 TOPAMAX 50 MG TABS 568186 TOPIRAMATE Inactive TOPAMAX 25 MG TABS 1 qHS x 1 week, then 1 BID x 1 week, then 1 qAM and 2 qHS x 1 week, then 2 BID (migraine prevention) TOPAMAX 2 5 MG TABS 809948 TOPIRAMATE Inactive LYRICA 75 MG CAPS TAKE 1 CAPSULE BY MOUTH TWICE DAILY LYRICA 75 MG CAPS PREGABALIN Inactive SYMBICORT 160-4.5 MCG/ACT AERO 2 puffs bid with rinse after 2011 SYMBICORT 160-4.5 MCG/ACT AERO BUDESONIDE-FORMOT SÁNCHEZ FUMARATE Inactive PROMETHAZINE-CODEINE 6.25-10 MG/5ML SYRP 1 tsp by mouth ever y 8 hours prn cough PROMETHAZINE-CODEINE 6.25-10 MG/5ML SYRP 132625 PROMETHAZINE-CODEINE Inactive CYMBALTA 30 MG CPEP 1 cap by mouth daily CYMBALTA 30 MG CPEP 712369 DULOXETINE HCL Inactive PREMARIN 0.625 MG TABS TAKE 1 TAB BY MOUTH DAILY 07/25 PREMARIN 0.625 MG TABS ESTROGENS CONJUGATED Inactive ZITHROMAX Z-REYNA 250 MG TABS 2 today, then 1 daily for 4 days 201 04/09/17 ZITHROMAX Z-REYNA 250 MG TABS 6059691 AZITHROMYCIN Inac tive CEFDINIR 300 MG CAPS [...] q days 2-5 ZITHROMAX 250 MG TAB 0078400 AZITHROMYCIN Inactive CEFDINIR 300 MG CAPS by mouth twice a day CEFDINIR 300 MG CAPS 20020704 CEFDINIR Inactive PREDNISONE 20 MG TAB 2 tabs daily for 3 days, 1 t ab daily for 3 days, 1/2 tab daily for 2 days PREDNISONE 20 MG TAB 130010 PREDNISON E Inactive AVELOX 400 MG TABS 1 tab by mouth daily A VELOX 400 MG TABS 407081 MOXIFLOXACIN HCL Inactive AVELOX 400 MG TABS 1 tab by mouth daily A VELOX 400 MG TABS 452995 MOXIFLOXACIN HCL Inactive PREDNISONE 20 MG TAB Take 3 tabs daily for 3 days , 2 tabs daily for 3 days, 1 tab daily for 3 days, 1/2 tab daily for 3 days PREDNISONE 20 MG TAB 911689 PREDNISONE Inactive LEVAQUIN 500 MG TABS take one po QD LEVAQUIN 50 0 MG TABS 110441 LEVOFLOXACIN Inactive AZITHROMYCIN 250 MG TABS 2 po qd x 1 day, then 1 po qd x 4 days AZITHROMYCIN 250 MG TABS 9201237 AZITHROMYCIN Inactiv e MEDROL (REYNA) 4 MG TABS 6 tabs on day 1, 5 tabs on d ay 2, 4 tabs on day 3, 3 tabs on day 4, 2 tabs on day 5, 1 tab on day 6 MEDROL (REYNA) 4 MG TABS METHYLPREDNISOLONE Inactive CHERATUSSIN AC 100-10 MG/5ML SYRP 5ml po q6hr PRN Cough CHERATUSSIN AC 100-10 MG/5ML SYRP 261341 GUAIFENESIN-CODEINE Inacti ve TRIAMCINOLONE ACETONIDE 0.1 % CREA apply three times daily prn r beatrice TRIAMCINOLONE ACETONIDE 0.1 % CREA 9189755 TRIAMCINOLONE ACETONIDE Inactive AZITHROMYCIN 250 MG TABS 2 po qd x 1 day, then 1 po qd x 4 days AZITHROMYCIN 250 MG TABS 9341413 AZITHROMYCIN Inactiv e MEDROL (REYNA) 4 MG [...] days 20 13/03/08 AMOXICILLIN 500 MG CAP 771010 AMOXICILLIN Inactive AMOXICILLIN 500 MG CAP 1 tab by mouth 3 times daily x 10 days 20 14/04/28 AMOXICILLIN 500 MG CAP 995774 AMOXICILLIN Inactive ZITHROMAX 250 MG TAB 2 po today, then 1 po q days 2-5 ZITHROMAX 250 MG TAB 1628138 AZITHROMYCIN Inactive AUGMENTIN 875-125 MG TAB 1 po BID x 10 days AUGMENTIN 875- 125 MG TAB 364242 AMOXICILLIN-POT CLAVULANATE Inactive ZITHROMAX Z-REYNA 250 MG TABS 2 today, then 1 daily for 4 days 201 08/07/20 ZITHROMAX Z-REYNA 250 MG TABS 8147208 AZITHROMYCIN Inac tive ZITHROMAX 250 MG TAB 2 po today, then 1 po q days 2-5 ZITHROMAX 250 MG TAB 2833431 AZITHROMYCIN Inactive Vital Signs Date Name Value [...] Measured Encounters Code Encounter Date Provider Facility CPT-58571 Level 3 Est. Patient 09:45:49 DEPUTY SHERIFF CUSTODY Carlton rich MD [facility] CPT-56953 Level 3 Est. Patient 13:19:20 CDT Carlton rich MD [facility] CPT-58724 Level 3 Est. Patient 13:06:43 CDT Ridge tam DO [facility] CPT-21661 Level 3 Est. Patient 10:03:07 CDT Perez Mora MD [facility] CPT-84882 Level 3 Est. Patient 19:50:35 DEPUTY SHERIFF CUSTODY Carlton rich MD [facility] CPT-94521 Level 4 Est. Patient 18:05:01 DEPUTY SHERIFF CUSTODY Carlton rich MD [facility] CPT-81000 Level 3 Est. Patient 10:45:55 DEPUTY SHERIFF CUSTODY Hugo Restrepo MD [facility] CPT-93743 Level 3 Est. Patient 14:12:49 CDT Griffin HERNANDEZ [facility] CPT-74263 Level 3 Est. Patient 17:37:24 CDT Carlton rich MD [facility] CPT-69527 Level 3 Est. Patient 16:51:54 CDT Carlton rich MD [facility] CPT-60110 Level 3 Est. Patient 12:18:11 CDT Hugo Restrepo MD [facility] CPT-11866 Level 3 Est. Patient 11:30:25 CDT Marcy crisostomo MD PhD [facility] CPT-40556 Level 3 Est. Patient 12:00:47 DEPUTY SHERIFF CUSTODY Carlton rich MD [facility] CPT-23731 Level 3 Est. Patient 16:31:06 DEPUTY SHERIFF CUSTODY Carlton rich MD [facility] CPT-09585 Level 3 Est. Patient 16:23:24 DEPUTY SHERIFF CUSTODY Ridge tam DO [facility] CPT-01414 Level 3 Est. Patient 12:34:12 CDT Carlton rich MD [facility] CPT-26562 Level 2 Est. Patient 15:43:33 CDT Robi armstrong MD [facility] CPT-84137 Level 4 Est. Patient 14:04:44 CDT Carlton rich MD [facility] CPT-02495 Level 3 Est. Patient 05:47:59 CDT Ridge tam [facility] CPT-41856 Level 3 Est. Patient 13:12:53 DEPUTY SHERIFF CUSTODY Carlton rich MD [facility] CPT-05458 Level 3 Est. Patient 14:26:53 CDT Hugo Restrepo MD [facility] Procedures Code Procedure Name Date Entry Date Standard Desc ription CPT-09899 Hip bilat min 2V w AP pelvis 13:16:20 CDT 2 CPT-00104 Pelvis only 13:07:33 CDT CPT-59471 Spec Collection and Handling Fee 11:25:12 C DT CPT-11595 Fluzone Quadrivalent Intramuscular Suspe nsion 0.5 ML 14:31:55 CDT CPT-55026 Abx/Therapy Injection 13:28:47 DEPUTY SHERIFF CUSTODY CPT-J2930 Solu Medrol 125 mg (Methyl Prednisolone Sodium Succinate) 12:00:47 DEPUTY SHERIFF CUSTODY CPT-73981 Venipuncture Draw Fee 11:33:31 CDT CPT-17771 EKG Trac and Interp 11:21:09 CDT CPT-93265 Chest 2V Frontal and Lat 11:21:09 CDT 12/15 CPT-63187 Venipuncture Draw Fee 08:02:34 CDT CPT-28692 Chest 2V Frontal and Lat 05:47:59 CDT 06/05
--- OUTSIDE RECORDS SUMMARY | 2019-10-08 10:15 | XMS REPORT | Clinical Summary ---
Author Author Caitlin, Juliana Martinez Organization [facility] Address Unknown Phone Unavailable Allergies, [...] WALL PAIN, ACUTE 786.52 Resolved Liv De LaR osa MD PhD Painful respiration PNEUMONIA 486 Resolved [...] sites Sinusitis 473.9 Active Diya De Guzman [employer]OR[employer]IFTER Unspecified sinusitis (chronic) Bronchitis-Acute 466.0 Active Carlton [...] tablet by mouth daily prn anxiety ALPRAZOLAM 52270558309 Active Carlton Hu MD Active CYMBALTA 30 MG CPEP 1 cap by mouth daily for depression DULOXETINE HCL 32084270523 Active Carlton Hu MD Active CEFDINIR 300 MG CAPS 1 po BID x 10 days CEFDINI R 54484451965 Active Carlton Hu MD Active ZOCOR 40 MG TAB 1 tab by mouth daily SIMVASTATI N 56707297444 No Longer Active Carlton Hu MD Active CYCLOBENZAPRINE HCL 10 MG TABS 1 tablet by mouth BID prn had cherelle n CYCLOBENZAPRINE HCL 47814740383 No Longer Active Carlton Hu MD Active LEVOFLOXACIN 500 MG ORAL TABS 1 tab PO daily x 10 days LEVOFLOXACIN 35817852722 No Longer Active Carlton Hu MD Acti ve PREDNISONE 20 MG ORAL TABS 3 tab PO qd x 2d, 2 tab PO qd x 2d, 1 tab PO qd x 2d, 1/2 tab PO qd x 2d PREDNISONE 93417715343 No Longer Active Carlton Hu MD Active TUSSIONEX PENNKINETIC ER 10-8 MG/5ML ORAL LQCR 5 mL PO q 12 hrs PRN cough HYDROCOD POLST-CHLORPHEN POLST 78598355744 Active Carlton Hu MD Active FLUTICASONE PROPIONATE 50 MCG/ACT SUSP 1 to 2 sprays each no stril daily FLUTICASONE PROPIONATE 27263196643 No Longer Active T jaz HERNANDEZ Active CHERATUSSIN AC 100-10 MG/5ML SYRP 1 tsp by mouth every 4 hours as needed for cough GUAIFENESIN-CODEINE 29983769238 No Longer Activ e Blaine HERNANEDZ Active PROMETHAZINE-CODEINE 6.25-10 MG/5ML SYRP 1 tsp by mout h every 6 hours if needed for cough PROMETHAZINE-CODEINE 61288129038 No Long er Active Blaine HERNANDEZ Active CHERATUSSIN AC 100-10 MG/5ML SYRP 1 tsp by mouth every 4 hours as needed for cough GUAIFENESIN-CODEINE 66809448686 No Longer Activ Jorge Luis HERNANDEZ Active ZITHROMAX Z-REYNA 250 MG TABS 2 today, then 1 daily for 4 days 201 08/30/03 AZITHROMYCIN 53046136812 No Longer Active Columba Raida Act nael ZITHROMAX 250 MG TAB 2 po today, then 1 po q days 2-5 AZITHROMYCIN 10969311210 No Longer Active Carlton Hu MD Acti ve ZITHROMAX Z-REYNA 250 MG TABS 2 today, then 1 daily for 4 days 201 08/07/20 AZITHROMYCIN 71027707264 No Longer Active Columba Raida Act nael AUGMENTIN 875-125 MG TAB 1 po BID x 10 days AMOXICILLIN- POT CLAVULANATE 90597270237 No Longer Active Diya De Guzman APRN Active ZITHROMAX 250 MG TAB 2 po today, then 1 po q days 2-5 AZITHROMYCIN 09710872371 No Longer Active Carlton Hu MD Acti ve TRAMADOL HCL 50 MG TABS 1 po tid with ES Tylenol TRAMADOL HCL 30872550373 Active Carlton Hu MD Active PREMARIN 0.625 MG TABS TAKE 1 TAB BY MOUTH DAILY 07/25 ESTROGENS CONJUGATED 28262059379 No Longer Active Ridge Bess DO Active CYMBALTA 30 MG CPEP 1 cap by mouth daily DULOXE SNEHA HCL 06185862165 No Longer Active Ridge Bess DO Active AMOXICILLIN 500 MG CAP 1 tab by mouth 3 times daily x 10 days 20 14/04/28 AMOXICILLIN 51642019056 No Longer Active Carlton Hu MD Active AMOXICILLIN 500 MG CAP 1 tab by mouth 3 times daily x 10 days 20 13/03/08 AMOXICILLIN 79647110961 No Longer Active Carlton Hu MD Active PROMETHAZINE-CODEINE 6.25-10 MG/5ML SYRP 1 tsp by mouth ever y 8 hours prn cough PROMETHAZINE-CODEINE 23731367574 No Longer Active Robert Hu MD Active MEDROL (REYNA) 4 MG TABS 6 pills x 1 day, then 5 pill s x 1 day then 4 pills x 1 day, then 3 pills x 1 day, then 2 pills x 1 day, then 1 pill x 1 day, then stop METHYLPREDNISOLONE 57879289155 No Longer Active Parris Mora MD Active AZITHROMYCIN 250 MG TABS 2 po qd x 1 day, then 1 po qd x 4 days AZITHROMYCIN 17825872838 No Longer Active Perez Mora MD Active SYMBICORT 160-4.5 MCG/ACT AERO 2 puffs bid with rinse after 2011 BUDESONIDE-FORMOTEROL FUMARATE 28830386191 No Longer Active Perez Mora MD Active LYRICA 75 MG CAPS TAKE 1 CAPSULE BY MOUTH TWICE DAILY 2013 PREGABALIN 62791763134 No Longer Active Carlton Hu MD Active LYRICA 100 MG CAPS Take 1 tab po BID for fibromyalgia PREGABALIN 58892052302 Active Carlton Hu MD Active TOPAMAX 25 MG TABS 1 qHS x 1 week, then 1 BID x 1 week, then 1 qAM and 2 qHS x 1 week, then 2 BID (migraine prevention) TOPIRAMAT E 75305725433 No Longer Active Jerica FUENTES Active TOPAMAX 50 MG TABS take 1 tab po BID for migraines. 12/07/10 TOPIRAMATE 66110993417 No Longer Active Jerica Osei RMA Ac tive TOPAMAX 100 MG TABS Take 1 tablet po bid TOPIRAMATE 4999 3940193 Active Carlton Hu MD Active TRIAMCINOLONE ACETONIDE 0.1 % CREA apply three times daily prn r beatrice TRIAMCINOLONE ACETONIDE 84599441027 No Longer Active Carlton Hu MD Active PAXIL 40 MG TAB take 1 tab po qday for depression PAROXETINE HCL 16222582524 Active Elise Whitmore [employer]TER Active CHERATUSSIN AC 100-10 MG/5ML SYRP 5ml po q6hr PRN Cough GUAIFENESIN-CODEINE 43578521040 No Longer Active Carlton Hu MD Active MEDROL (REYNA) 4 MG TABS 6 tabs on day 1, 5 tabs on d ay 2, 4 tabs on day 3, 3 tabs on day 4, 2 tabs on day 5, 1 tab on day 6 METHYLPREDNISOLONE 59842971691 No Longer Active Perez Mora MD Active AZITHROMYCIN 250 MG TABS 2 po qd x 1 day, then 1 po qd x 4 days AZITHROMYCIN 29339084792 No Longer Active Perez Mora MD Active PROPRANOLOL HCL 60 MG TABS 1 PO Q D PROPRANOL OL HCL 03350190898 No Longer Active Perez Mora MD Active CHERATUSSIN AC 100-10 MG/5ML SYRP take one tsp po Q 6hours prn c ough GUAIFENESIN-CODEINE 76527059098 No Longer Active Perez Means Active AUGMENTIN 875-125 MG TAB 1 tab by mouth twice daily with food 20 12/03/31 AMOXICILLIN-POT CLAVULANATE 01277508272 No Longer Active Chanel Mora MD Active CHERATUSSIN AC 100-10 MG/5ML SYRP 1 tsp by mouth every 4 hours as needed for cough GUAIFENESIN-CODEINE 14271621316 No Longer Activ e Hugo Restrepo MD Active ACETAMINOPHEN-CODEINE #3 300-30 MG TABS 1 PO Q 4-6 HRS PRN PAIN ACETAMINOPHEN-CODEINE 54019168683 No Longer Active Hugo Restrepo MD Active LEVAQUIN 500 MG TABS take one po QD LEVOFLOXACI N 92505906032 No Longer Active Griffin HERNANDEZ Active PREDNISONE 20 MG TAB Take 3 tabs daily for 3 days , 2 tabs daily for 3 days, 1 tab daily for 3 days, 1/2 tab daily for 3 days P REDNISONE 40574172522 No Longer Active Carlton Hu MD Active AVELOX 400 MG TABS 1 tab by mouth daily MOXIFLO XACIN HCL 31845911752 No Longer Active Carlton Hu MD Active CHERATUSSIN AC 100-10 MG/5ML SYRP 1 tsp by mouth every 4 hours as needed for cough GUAIFENESIN-CODEINE 64662698473 No Longer Activ e Hugo Restrepo MD Active AVELOX 400 MG TABS 1 tab by mouth daily MOXIFLO XACIN HCL 92085274721 No Longer Active Marcy De La Rosa MD PhD Active TERBINAFINE HCL 250 MG TABS 1 qDay TERBINAF INE HCL 30601980378 No Longer Active Marcy De La Rosa MD PhD Active CHERATUSSIN AC 100-10 MG/5ML SYRP 1 tsp by mouth every 4 hours as needed for cough GUAIFENESIN-CODEINE 93915347916 No Longer Activ e Marcy De La Rosa MD PhD Active AVELOX 400 MG TABS 1 tab by mouth daily MOXIFLO XACIN HCL 75975934453 No Longer Active Marcy De La Rosa MD PhD Active HYDROCODONE-ACETAMINOPHEN 5-325 MG TABS 1 po q 6hr PRN cough 201 05/09/16 HYDROCODONE-ACETAMINOPHEN 89851072813 No Longer Active Marcy De La Rosa MD PhD Active PREDNISONE 20 MG TAB 2 tabs daily for 3 days, 1 t ab daily for 3 days, 1/2 tab daily for 2 days PREDNISONE 22799204877 No Longer Active Carlton Hu MD Active CEFDINIR 300 MG CAPS by mouth twice a day CEFDI ODILIA 87253445268 No Longer Active Calrton Hu MD Active HYDROCHLOROTHIAZIDE 25 MG TABS 1 TAB PO DAILY H YDROCHLOROTHIAZIDE 74975937173 Active Carlton Hu MD Active ACETAMINOPHEN-CODEINE #3 300-30 MG TABS 1 tablet po q 4-6hrs prn pain ACETAMINOPHEN-CODEINE 89559618217 No Longer Active Ridge Bess DO Active ZITHROMAX 250 MG TAB 2 po today, then 1 po q days 2-5 AZITHROMYCIN 57528307606 No Longer Active Carlton Hu MD Acti ve CHERATUSSIN AC 100-10 MG/5ML SYRP take 1 tsp po q4-6 hours prn c ough GUAIFENESIN-CODEINE 98135274445 No Longer Active Carlton Hu MD Active ACETAMINOPHEN-CODEINE #3 300-30 MG TABS 1 PO Q 4-6 HR PRN PAIN 2 ACETAMINOPHEN-CODEINE 77574572892 No Longer Active Carlton rich MD Active LORTAB 7.5-500 MG/15ML ELIX 7.5 ml po q 4 hour prn cough HYDROCODONE-ACETAMINOPHEN 90822088163 No Longer Active Carlton Hu MD Active PREDNISONE 20 MG TAB 1 po bid 3 days, then 1 po q day 3 days 201 05/03/07 PREDNISONE 21898259969 No Longer Active Carlton Hu MD Active ELMIRON 100 MG CAPS 2 tablets in the am and 1 tablet at hs PENTOSAN POLYSULFATE SODIUM 34829138356 Active Carlton Hu MD Ac tive CEFDINIR 300 MG CAPS by mouth twice a day CEFDI ODILIA 22099339423 No Longer Active Carlton Hu MD Active CEFDINIR 300 MG CAPS by mouth twice a day CEFDI ODILIA 56684169532 No Longer Active Carlton Hu MD Active CEFDINIR 300 MG CAPS by mouth twice a day CEFDI ODILIA 00088194659 No Longer Active Carlton Hu MD Active TESSALON PERLES 100 MG CAP 1 tablet by mouth 3 times daily a s needed for cough BENZONATATE 41211110350 No Longer Active Carlton bustamante MD Active CEFDINIR 300 MG CAPS by mouth twice a day CEFDI ODILIA 63993269169 No Longer Active Carlton Hu MD Active ZITHROMAX Z-REYNA 250 MG TABS 2 today, then 1 daily for 4 days 201 04/09/17 AZITHROMYCIN 16877711286 No Longer Active Hugo Restrepo MD Active TESSALON PERLES 100 MG CAP 1 tablet by mouth 3 times daily a s needed for cough TESSALON PERLES 100 MG CAP 302930 BENZONATATE I nactive PREDNISONE 20 MG TAB 1 po bid 3 days, then 1 po q day 3 days 201 05/03/07 PREDNISONE 20 MG TAB 317623 PREDNISONE Inactive LORTAB 7.5-500 MG/15ML ELIX 7.5 ml po q 4 hour prn cough LORTAB 7.5-500 MG/15ML ELIX HYDROCODONE-ACETAMINOPHEN Inacti ve ACETAMINOPHEN-CODEINE #3 300-30 MG TABS 1 PO Q 4-6 HR PRN PAIN 2 ACETAMINOPHEN-CODEINE #3 300-30 MG TABS 503773 ACETAMIN OPHEN-CODEINE Inactive CHERATUSSIN AC 100-10 MG/5ML SYRP take 1 tsp po q4-6 hours prn c ough CHERATUSSIN AC 100-10 MG/5ML SYRP 377584 GUAIFENESIN-CO DEINE Inactive ACETAMINOPHEN-CODEINE #3 300-30 MG TABS 1 tablet po q 4-6hrs prn pain ACETAMINOPHEN-CODEINE #3 300-30 MG TABS 433679 ACETAMIN OPHEN-CODEINE Inactive HYDROCODONE-ACETAMINOPHEN 5-325 MG TABS 1 po q 6hr PRN cough 201 05/09/16 HYDROCODONE-ACETAMINOPHEN 5-325 MG TABS 450069 HYDROCODONE-ACETAMINOPHEN Inactive AVELOX 400 MG TABS 1 tab by mouth daily A VELOX 400 MG TABS 679250 MOXIFLOXACIN HCL Inactive CHERATUSSIN AC 100-10 MG/5ML SYRP 1 tsp by mouth every 4 hours as needed for cough CHERATUSSIN AC 100-10 MG/5ML SYRP 826135 GUAIFENESIN-CODEINE Inactive TERBINAFINE HCL 250 MG TABS 1 qDay TERBINAFINE HCL 250 MG TABS 500735 TERBINAFINE HCL Inactive CHERATUSSIN AC 100-10 MG/5ML SYRP 1 tsp by mouth every 4 hours as needed for cough CHERATUSSIN AC 100-10 MG/5ML SYRP 434096 GUAIFENESIN-CODEINE Inactive ACETAMINOPHEN-CODEINE #3 300-30 MG TABS 1 PO Q 4-6 HRS PRN PAIN ACETAMINOPHEN-CODEINE #3 300-30 MG TABS 457563 ACETAMINOPHEN-CODEIN E Inactive CHERATUSSIN AC 100-10 MG/5ML SYRP 1 tsp by mouth every 4 hours as needed for cough CHERATUSSIN AC 100-10 MG/5ML SYRP 234204 GUAIFENESIN-CODEINE Inactive AUGMENTIN 875-125 MG TAB 1 tab by mouth twice daily with food 20 12/03/31 AUGMENTIN 875-125 MG TAB 484077 AMOXICILLIN-POT CLAVULA EFE Inactive CHERATUSSIN AC 100-10 MG/5ML SYRP take one tsp po Q 6hours prn c ough CHERATUSSIN AC 100-10 MG/5ML SYRP 598195 GUAIFENESIN-CO DEINE Inactive PROPRANOLOL HCL 60 MG TABS 1 PO Q D P ROPRANOLOL HCL 60 MG TABS 227283 PROPRANOLOL HCL Inactive TOPAMAX 50 MG TABS take 1 tab po BID for migraines. 12/07/10 TOPAMAX 50 MG TABS 052867 TOPIRAMATE Inactive TOPAMAX 25 MG TABS 1 qHS x 1 week, then 1 BID x 1 week, then 1 qAM and 2 qHS x 1 week, then 2 BID (migraine prevention) TOPAMAX 2 5 MG TABS 487017 TOPIRAMATE Inactive LYRICA 75 MG CAPS TAKE 1 CAPSULE BY MOUTH TWICE DAILY LYRICA 75 MG CAPS PREGABALIN Inactive SYMBICORT 160-4.5 MCG/ACT AERO 2 puffs bid with rinse after 2011 SYMBICORT 160-4.5 MCG/ACT AERO BUDESONIDE-FORMOT SÁNCHEZ FUMARATE Inactive PROMETHAZINE-CODEINE 6.25-10 MG/5ML SYRP 1 tsp by mouth ever y 8 hours prn cough PROMETHAZINE-CODEINE 6.25-10 MG/5ML SYRP 061334 PROMETHAZINE-CODEINE Inactive CYMBALTA 30 MG CPEP 1 cap by mouth daily CYMBALTA 30 MG CPEP 343294 DULOXETINE HCL Inactive PREMARIN 0.625 MG TABS TAKE 1 TAB BY MOUTH DAILY 07/25 PREMARIN 0.625 MG TABS ESTROGENS CONJUGATED Inactive CHERATUSSIN AC 100-10 MG/5ML SYRP 1 tsp by mouth every 4 hours as needed for cough CHERATUSSIN AC 100-10 MG/5ML SYRP 774458 GUAIFENESIN-CODEINE Inactive PROMETHAZINE-CODEINE 6.25-10 MG/5ML SYRP 1 tsp by mout h every 6 hours if needed for cough PROMETHAZINE-CODEINE 6.25-10 MG/5ML SYRP 868080 PROMETHAZINE-CODEINE Inactive CHERATUSSIN AC 100-10 MG/5ML SYRP 1 tsp by mouth every 4 hours as needed for cough CHERATUSSIN AC 100-10 MG/5ML SYRP 003626 GUAIFENESIN-CODEINE Inactive FLUTICASONE PROPIONATE 50 MCG/ACT SUSP 1 to 2 sprays each no stril daily FLUTICASONE PROPIONATE 50 MCG/ACT SUSP 568890 FLUTICASONE PROPIONATE Inactive PREDNISONE 20 MG ORAL TABS 3 tab PO qd x 2d, 2 tab PO qd x 2d, 1 tab PO qd x 2d, 1/2 tab PO qd x 2d PREDNISONE 20 MG ORAL TABS 075079 PREDNISONE Inactive LEVOFLOXACIN 500 MG ORAL TABS 1 tab PO daily x 10 days LEVOFLOXACIN 500 MG ORAL TABS 380823 LEVOFLOXACIN Inactive CYCLOBENZAPRINE HCL 10 MG TABS 1 tablet by mouth BID prn had cherelle n CYCLOBENZAPRINE HCL 10 MG TABS 185581 CYCLOBENZAPRINE H CL Inactive ZOCOR 40 MG TAB 1 tab by mouth daily ZOCOR 40 M G TAB 594859 SIMVASTATIN Inactive ZITHROMAX Z-REYNA 250 MG TABS 2 today, then 1 daily for 4 days 201 04/09/17 ZITHROMAX Z-REYNA 250 MG TABS 7742742 AZITHROMYCIN Inac tive CEFDINIR 300 MG CAPS by mouth twice a day CEFDINIR 300 MG CAPS 20020704 CEFDINIR Inactive CEFDINIR 300 MG CAPS by mouth twice a day CEFDINIR 300 MG CAPS 20020704 CEFDINIR Inactive CEFDINIR 300 MG CAPS by mouth twice a day CEFDINIR 300 MG CAPS 941212 CEFDINIR Inactive CEFDINIR 300 MG CAPS by mouth twice a day CEFDINIR 300 MG CAPS 189956 CEFDINIR Inactive ZITHROMAX 250 MG TAB 2 po today, then 1 po q days 2-5 ZITHROMAX 250 MG TAB 7310771 AZITHROMYCIN Inactive CEFDINIR 300 MG CAPS by mouth twice a day CEFDINIR 300 MG CAPS 20020704 CEFDINIR Inactive PREDNISONE 20 MG TAB 2 tabs daily for 3 days, 1 t ab daily for 3 days, 1/2 tab daily for 2 days PREDNISONE 20 MG TAB 715522 PREDNISON E Inactive AVELOX 400 MG TABS 1 tab by mouth daily A VELOX 400 MG TABS 776442 MOXIFLOXACIN HCL Inactive AVELOX 400 MG TABS 1 tab by mouth daily A VELOX 400 MG TABS 623721 MOXIFLOXACIN HCL Inactive PREDNISONE 20 MG TAB Take 3 tabs daily for 3 days , 2 tabs daily for 3 days, 1 tab daily for 3 days, 1/2 tab daily for 3 days PREDNISONE 20 MG TAB 422295 PREDNISONE Inactive LEVAQUIN 500 MG TABS take one po QD LEVAQUIN 50 0 MG TABS 108471 LEVOFLOXACIN Inactive AZITHROMYCIN 250 MG TABS 2 po qd x 1 day, then 1 po qd x 4 days AZITHROMYCIN 250 MG TABS 4967567 AZITHROMYCIN Inactiv e MEDROL (REYNA) 4 MG TABS 6 tabs on day 1, 5 tabs on d ay 2, 4 tabs on day 3, 3 tabs on day 4, 2 tabs on day 5, 1 tab on day 6 MEDROL (REYNA) 4 MG TABS METHYLPREDNISOLONE Inactive CHERATUSSIN AC 100-10 MG/5ML SYRP 5ml po q6hr PRN Cough CHERATUSSIN AC 100-10 MG/5ML SYRP 615986 GUAIFENESIN-CODEINE Inacti ve TRIAMCINOLONE ACETONIDE 0.1 % CREA apply three times daily prn r beatrice TRIAMCINOLONE ACETONIDE 0.1 % CREA 4268829 TRIAMCINOLONE ACETONIDE Inactive AZITHROMYCIN 250 MG TABS 2 po qd x 1 day, then 1 po qd x 4 days AZITHROMYCIN 250 MG TABS 9709901 AZITHROMYCIN Inactiv e MEDROL (REYNA) 4 MG [...] days 20 13/03/08 AMOXICILLIN 500 MG CAP 201412 AMOXICILLIN Inactive AMOXICILLIN 500 MG CAP 1 tab by mouth 3 times daily x 10 days 20 14/04/28 AMOXICILLIN 500 MG CAP 451738 AMOXICILLIN Inactive ZITHROMAX 250 MG TAB 2 po today, then 1 po q days 2-5 ZITHROMAX 250 MG TAB 0668820 AZITHROMYCIN Inactive AUGMENTIN 875-125 MG TAB 1 po BID x 10 days AUGMENTIN 875- 125 MG TAB 751585 AMOXICILLIN-POT CLAVULANATE Inactive ZITHROMAX Z-REYNA 250 MG TABS 2 today, then 1 daily for 4 days 201 08/07/20 ZITHROMAX Z-REYNA 250 MG TABS 0045840 AZITHROMYCIN Inac tive ZITHROMAX 250 MG TAB 2 po today, then 1 po q days 2-5 ZITHROMAX 250 MG TAB 4089462 AZITHROMYCIN Inactive ZITHROMAX Z-REYNA 250 MG TABS 2 today, then 1 daily for 4 days 201 08/30/03 ZITHROMAX Z-REYNA 250 MG TABS 5162306 AZITHROMYCIN Inac tive Vital Signs Date Name [...] Measured Encounters Code Encounter Date Provider Facility CPT-63113 Level 4 Est. Patient 14:36:51 CDT Carlton rich MD [facility] CPT-57874 Level 3 Est. Patient 18:16:00 CERTIFIED MEDICAL DOSIMETRIST Blaine HERNANDEZ [facility] CPT-52469 Level 3 Est. Patient 09:45:49 CERTIFIED MEDICAL DOSIMETRIST Carlton rich MD [facility] CPT-60223 Level 3 Est. Patient 13:19:20 CDT Carlton rich MD [facility] CPT-11232 Level 3 Est. Patient 13:06:43 CDT Ridge tam DO [facility] CPT-46568 Level 3 Est. Patient 10:03:07 CDT Perez Mora MD [facility] CPT-44506 Level 3 Est. Patient 19:50:35 CERTIFIED MEDICAL DOSIMETRIST Carlton rich MD [facility] CPT-80746 Level 4 Est. Patient 18:05:01 CERTIFIED MEDICAL DOSIMETRIST Carlton rich MD [facility] CPT-62715 Level 3 Est. Patient 10:45:55 CERTIFIED MEDICAL DOSIMETRIST Hugo Restrepo MD [facility] CPT-84251 Level 3 Est. Patient 14:12:49 CDT Griffin HERNANDEZ [facility] CPT-51452 Level 3 Est. Patient 17:37:24 CDT Carlton rich MD [facility] CPT-63892 Level 3 Est. Patient 16:51:54 CDT Carlton rich MD [facility] CPT-09378 Level 3 Est. Patient 12:18:11 CDT Hugo Restrepo MD [facility] CPT-71190 Level 3 Est. Patient 11:30:25 CDT Marcy crisostomo MD PhD [facility] CPT-04196 Level 3 Est. Patient 12:00:47 CERTIFIED MEDICAL DOSIMETRIST Carlton rich MD [facility] CPT-52816 Level 3 Est. Patient 16:31:06 CERTIFIED MEDICAL DOSIMETRIST Carlton rich MD [facility] CPT-81637 Level 3 Est. Patient 16:23:24 CERTIFIED MEDICAL DOSIMETRIST Ridge tam DO [facility] CPT-60557 Level 3 Est. Patient 12:34:12 CDT Carlton rich MD [facility] CPT-81198 Level 2 Est. Patient 15:43:33 CDT Robi armstrong MD [facility] CPT-17796 Level 4 Est. Patient 14:04:44 CDT Carlton rich MD [facility] CPT-37723 Level 3 Est. Patient 05:47:59 CDT Ridge tam DO [facility] CPT-24941 Level 3 Est. Patient 13:12:53 CERTIFIED MEDICAL DOSIMETRIST Carlton rich MD [facility] CPT-91538 Level 3 Est. Patient 14:26:53 CDT Hugo Restrepo MD [facility] Procedures Code Procedure Name Date Entry Date Standard Desc ription CPT-61586 Hip bilat min 2V w AP pelvis 13:16:20 CDT 2 CPT-91575 Pelvis only 13:07:33 CDT CPT-92803 Spec Collection and Handling Fee 11:25:12 C DT CPT-10861 Fluzone Quadrivalent Intramuscular Suspe nsion 0.5 ML 14:31:55 CDT CPT-97647 Abx/Therapy Injection 13:28:47 CERTIFIED MEDICAL DOSIMETRIST CPT-J2930 Solu Medrol 125 mg (Methyl Prednisolone Sodium Succinate) 12:00:47 CERTIFIED MEDICAL DOSIMETRIST CPT-04945 Venipuncture Draw Fee 11:33:31 CDT CPT-65425 EKG Trac and Interp 11:21:09 CDT CPT-78744 Chest 2V Frontal and Lat 11:21:09 CDT 12/15 CPT-55863 Venipuncture Draw Fee 08:02:34 CDT CPT-01766 Chest 2V Frontal and Lat 05:47:59 CDT 06/05
--- OUTSIDE RECORDS SUMMARY | 2019-10-08 10:16 | XMS REPORT | Clinical Summary ---
[...] daily x 10 days 20 14/04/28 AMOXICILLIN [id number] No Longer Active Carlton Hu MD Active AMOXICILLIN 500 MG CAP 1 tab by mouth 3 times daily x 10 days 20 13/03/08 AMOXICILLIN 82312971226 No Longer Active Carlton Hu MD Active CHERATUSSIN AC 100-10 MG/5ML SYRP 1 tsp by mouth every 4 hours as needed for cough GUAIFENESIN-CODEINE 84227899493 Active Carlton banks MD Active CYCLOBENZAPRINE HCL 10 MG TABS 1 tablet by mouth BID prn had pain 2 CYCLOBENZAPRINE HCL 35503917536 Active Carlton Hu MD A ctive PROMETHAZINE-CODEINE 6.25-10 MG/5ML SYRP 1 tsp by mouth ever y 8 hours prn cough PROMETHAZINE-CODEINE 17715944417 No Longer Active Robert Hu MD Active MEDROL (REYNA) 4 MG TABS 6 pills x 1 day, then 5 pill s x 1 day then 4 pills x 1 day, then 3 pills x 1 day, then 2 pills x 1 day, then 1 pill x 1 day, then stop METHYLPREDNISOLONE 04698824089 No Longer Active Parris Mora MD Active AZITHROMYCIN 250 MG TABS 2 po qd x 1 day, then 1 po qd x 4 days AZITHROMYCIN 55238619692 No Longer Active Perez Mora MD Active SYMBICORT 160-4.5 MCG/ACT AERO 2 puffs bid with rinse after 2011 BUDESONIDE-FORMOTEROL FUMARATE [id number] No Longer Active Perez Mora MD Active LYRICA 75 MG CAPS TAKE 1 CAPSULE BY MOUTH TWICE DAILY 2013 PREGABALIN 81539279968 No Longer Active Carlton Hu MD Active LYRICA 100 MG CAPS Take 1 tab po BID for fibromyalgia PREGABALIN 77754832380 Active Carlton Hu MD Active TOPAMAX 25 MG TABS 1 qHS x 1 week, then 1 BID x 1 week, then 1 qAM and 2 qHS x 1 week, then 2 BID (migraine prevention) TOPIRAMAT E 09429818515 No Longer Active Jerica FUENTES Active TOPAMAX 50 MG TABS take 1 tab po BID for migraines. 12/07/10 TOPIRAMATE 43410372111 No Longer Active Jerica FUENTES Ac tive TOPAMAX 100 MG TABS Take 1 tablet po bid TOPIRAMATE 4999 9715824 Active Carlton Hu MD Active TRIAMCINOLONE ACETONIDE 0.1 % CREA apply three times daily prn r beatrice TRIAMCINOLONE ACETONIDE 08052648246 No Longer Active Carlton Hu MD Active PAXIL 40 MG TAB take 1 tab po qday for depression PAROXETINE HCL 57217222475 Active Carlton Hu MD Active CYMBALTA 30 MG CPEP 1 cap by mouth daily DULOXE SNEHA HCL 68597308743 Active Carlton Hu MD Active CHERATUSSIN AC 100-10 MG/5ML SYRP 5ml po q6hr PRN Cough GUAIFENESIN-CODEINE 50411160614 No Longer Active Carlton Hu MD Active MEDROL (REYNA) 4 MG TABS 6 tabs on day 1, 5 tabs on d ay 2, 4 tabs on day 3, 3 tabs on day 4, 2 tabs on day 5, 1 tab on day 6 METHYLPREDNISOLONE 79903538143 No Longer Active Perez Mora MD Active AZITHROMYCIN 250 MG TABS 2 po qd x 1 day, then 1 po qd x 4 days AZITHROMYCIN 93568029620 No Longer Active Perez Mora MD Active PROPRANOLOL HCL 60 MG TABS 1 PO Q D PROPRANOL OL HCL 56181864425 No Longer Active Perez Mora MD Active CHERATUSSIN AC 100-10 MG/5ML SYRP take one tsp po Q 6hours prn c ough GUAIFENESIN-CODEINE 94228407108 No Longer Active Perez Means Active AUGMENTIN 875-125 MG TAB 1 tab by mouth twice daily with food 20 12/03/31 AMOXICILLIN-POT CLAVULANATE 56191217010 No Longer Active Chanel Mora MD Active CHERATUSSIN AC 100-10 MG/5ML SYRP 1 tsp by mouth every 4 hours as needed for cough GUAIFENESIN-CODEINE 64120122889 No Longer Activ lidia Restrepo MD Active ACETAMINOPHEN-CODEINE #3 300-30 MG TABS 1 PO Q 4-6 HRS PRN PAIN ACETAMINOPHEN-CODEINE 11932235563 No Longer Active Hugo Restrepo MD Active LEVAQUIN 500 MG TABS take one po QD LEVOFLOXACI N 72668432480 No Longer Active Grififn HERNANDEZ Active PREDNISONE 20 MG TAB Take 3 tabs daily for 3 days , 2 tabs daily for 3 days, 1 tab daily for 3 days, 1/2 tab daily for 3 days P REDNISONE 37571700554 No Longer Active Carlton Hu MD Active AVELOX 400 MG TABS 1 tab by mouth daily MOXIFLO XACIN HCL 00655841475 No Longer Active Carlton Hu MD Active CHERATUSSIN AC 100-10 MG/5ML SYRP 1 tsp by mouth every 4 hours as needed for cough GUAIFENESIN-CODEINE 66115996987 No Longer Activ e uHgo Restrepo MD Active AVELOX 400 MG TABS 1 tab by mouth daily MOXIFLO XACIN HCL 80950826400 No Longer Active Marcy De La Rosa MD PhD Active TERBINAFINE HCL 250 MG TABS 1 qDay TERBINAF INE HCL 39330302546 No Longer Active Marcy De La Rosa MD PhD Active CHERATUSSIN AC 100-10 MG/5ML SYRP 1 tsp by mouth every 4 hours as needed for cough GUAIFENESIN-CODEINE 08478724264 No Longer Activ e Marcy De La Rosa MD PhD Active AVELOX 400 MG TABS 1 tab by mouth daily MOXIFLO XACIN HCL 76183320792 No Longer Active Marcy De La Rosa MD PhD Active HYDROCODONE-ACETAMINOPHEN 5-325 MG TABS 1 po q 6hr PRN cough 201 05/09/16 HYDROCODONE-ACETAMINOPHEN 89517703217 No Longer Active Marcy De La Rosa MD PhD Active PREDNISONE 20 MG TAB 2 tabs daily for 3 days, 1 t ab daily for 3 days, 1/2 tab daily for 2 days PREDNISONE 39607389052 No Longer Active Carlton Hu MD Active CEFDINIR 300 MG CAPS by mouth twice a day CEFDI ODILIA 11625304417 No Longer Active Carlton Hu MD Active ZOCOR 40 MG TAB 1 tab by mouth daily SIMVASTATIN 10309258480 Active Carlton Hu MD Active HYDROCHLOROTHIAZIDE 25 MG TABS 1 TAB PO DAILY H YDROCHLOROTHIAZIDE 69090009064 Active Carlton Hu MD Active ACETAMINOPHEN-CODEINE #3 300-30 MG TABS 1 tablet po q 4-6hrs prn pain ACETAMINOPHEN-CODEINE 56054476286 No Longer Active Ridge Bess DO Active ZITHROMAX 250 MG TAB 2 po today, then 1 po q days 2-5 AZITHROMYCIN 99809832771 No Longer Active Carlton Hu MD Acti ve CHERATUSSIN AC 100-10 MG/5ML SYRP take 1 tsp po q4-6 hours prn c ough GUAIFENESIN-CODEINE 43620552710 No Longer Active Carlton Hu MD Active ACETAMINOPHEN-CODEINE #3 300-30 MG TABS 1 PO Q 4-6 HR PRN PAIN 2 ACETAMINOPHEN-CODEINE 83434943350 No Longer Active Carlton rich MD Active LORTAB 7.5-500 MG/15ML ELIX 7.5 ml po q 4 hour prn cough HYDROCODONE-ACETAMINOPHEN 14357897844 No Longer Active Carlton Hu MD Active PREDNISONE 20 MG TAB 1 po bid 3 days, then 1 po q day 3 days 201 05/03/07 PREDNISONE 12717263120 No Longer Active Carlton Hu MD Active ELMIRON 100 MG CAPS 2 tablets in the am and 1 tablet at hs PENTOSAN POLYSULFATE SODIUM 21221253191 Active Gracie Parsons Active CEFDINIR 300 MG CAPS by mouth twice a day CEFDI ODILIA 06658029828 No Longer Active Carlton Hu MD Active CEFDINIR 300 MG CAPS by mouth twice a day CEFDI ODILIA 72980669349 No Longer Active Carlton Hu MD Active CEFDINIR 300 MG CAPS by mouth twice a day CEFDI ODILIA 05993105739 No Longer Active Carlton Hu MD Active TESSALON PERLES 100 MG CAP 1 tablet by mouth 3 times daily a s needed for cough BENZONATATE 11932495198 No Longer Active Carlton bustamante MD Active CEFDINIR 300 MG CAPS by mouth twice a day CEFDI ODILIA 68771417179 No Longer Active Carlton Hu MD Active ZITHROMAX Z-REYNA 250 MG TABS 2 today, then 1 daily for 4 days 201 04/09/17 AZITHROMYCIN 80983306475 No Longer Active Hugo Restrepo MD Active PREMARIN 0.625 MG TABS TAKE 1 TAB BY MOUTH DAILY ESTROGENS CONJUGATED 30863343764 Active Carlton Hu MD Active TESSALON PERLES 100 MG CAP 1 tablet by mouth 3 times daily a s needed for cough TESSALON PERLES 100 MG CAP 229535 BENZONATATE I nactive PREDNISONE 20 MG TAB 1 po bid 3 days, then 1 po q day 3 days 201 05/03/07 PREDNISONE 20 MG TAB 389671 PREDNISONE Inactive LORTAB 7.5-500 MG/15ML ELIX 7.5 ml po q 4 hour prn cough LORTAB 7.5-500 MG/15ML ELIX HYDROCODONE-ACETAMINOPHEN Inacti ve ACETAMINOPHEN-CODEINE #3 300-30 MG TABS 1 PO Q 4-6 HR PRN PAIN 2 ACETAMINOPHEN-CODEINE #3 300-30 MG TABS 778045 ACETAMIN OPHEN-CODEINE Inactive CHERATUSSIN AC 100-10 MG/5ML SYRP take 1 tsp po q4-6 hours prn c ough CHERATUSSIN AC 100-10 MG/5ML SYRP 829382 GUAIFENESIN-CO DEINE Inactive ACETAMINOPHEN-CODEINE #3 300-30 MG TABS 1 tablet po q 4-6hrs prn pain ACETAMINOPHEN-CODEINE #3 300-30 MG TABS 431716 ACETAMIN OPHEN-CODEINE Inactive HYDROCODONE-ACETAMINOPHEN 5-325 MG TABS 1 po q 6hr PRN cough 201 05/09/16 HYDROCODONE-ACETAMINOPHEN 5-325 MG TABS 358063 HYDROCODONE-ACETAMINOPHEN Inactive AVELOX 400 MG TABS 1 tab by mouth daily A VELOX 400 MG TABS 280298 MOXIFLOXACIN HCL Inactive CHERATUSSIN AC 100-10 MG/5ML SYRP 1 tsp by mouth every 4 hours as needed for cough CHERATUSSIN AC 100-10 MG/5ML SYRP 555017 GUAIFENESIN-CODEINE Inactive TERBINAFINE HCL 250 MG TABS 1 qDay TERBINAFINE HCL 250 MG TABS 928028 TERBINAFINE HCL Inactive CHERATUSSIN AC 100-10 MG/5ML SYRP 1 tsp by mouth every 4 hours as needed for cough CHERATUSSIN AC 100-10 MG/5ML SYRP 130552 GUAIFENESIN-CODEINE Inactive ACETAMINOPHEN-CODEINE #3 300-30 MG TABS 1 PO Q 4-6 HRS PRN PAIN ACETAMINOPHEN-CODEINE #3 300-30 MG TABS 722466 ACETAMINOPHEN-CODEIN E Inactive CHERATUSSIN AC 100-10 MG/5ML SYRP 1 tsp by mouth every 4 hours as needed for cough CHERATUSSIN AC 100-10 MG/5ML SYRP 447009 GUAIFENESIN-CODEINE Inactive AUGMENTIN 875-125 MG TAB 1 tab by mouth twice daily with food 20 12/03/31 AUGMENTIN 875-125 MG TAB 032465 AMOXICILLIN-POT CLAVULA EFE Inactive CHERATUSSIN AC 100-10 MG/5ML SYRP take one tsp po Q 6hours prn c ough CHERATUSSIN AC 100-10 MG/5ML SYRP 599728 GUAIFENESIN-CO DEINE Inactive PROPRANOLOL HCL 60 MG TABS 1 PO Q D P ROPRANOLOL HCL 60 MG TABS 076742 PROPRANOLOL HCL Inactive TOPAMAX 50 MG TABS take 1 tab po BID for migraines. 12/07/10 TOPAMAX 50 MG TABS 698431 TOPIRAMATE Inactive TOPAMAX 25 MG TABS 1 qHS x 1 week, then 1 BID x 1 week, then 1 qAM and 2 qHS x 1 week, then 2 BID (migraine prevention) TOPAMAX 2 5 MG TABS 860314 TOPIRAMATE Inactive LYRICA 75 MG CAPS TAKE 1 CAPSULE BY MOUTH TWICE DAILY LYRICA 75 MG CAPS PREGABALIN Inactive SYMBICORT 160-4.5 MCG/ACT AERO 2 puffs bid with rinse after 2011 SYMBICORT 160-4.5 MCG/ACT AERO BUDESONIDE-FORMOT SÁNCHEZ FUMARATE Inactive PROMETHAZINE-CODEINE 6.25-10 MG/5ML SYRP 1 tsp by mouth ever y 8 hours prn cough PROMETHAZINE-CODEINE 6.25-10 MG/5ML SYRP 286035 PROMETHAZINE-CODEINE Inactive ZITHROMAX Z-REYNA 250 MG TABS 2 today, then 1 daily for 4 days 201 04/09/17 ZITHROMAX Z-REYNA 250 MG TABS 4673334 AZITHROMYCIN Inac tive CEFDINIR 300 MG CAPS by mouth twice a day CEFDINIR 300 MG CAPS 20020704 CEFDINIR Inactive CEFDINIR 300 MG CAPS by mouth twice a day CEFDINIR 300 MG CAPS 20020704 CEFDINIR Inactive CEFDINIR 300 MG CAPS by mouth twice a day CEFDINIR 300 MG CAPS 819383 CEFDINIR Inactive CEFDINIR 300 MG CAPS by mouth twice a day CEFDINIR 300 MG CAPS 20020704 CEFDINIR Inactive ZITHROMAX 250 MG TAB 2 po today, then 1 po q days 2-5 ZITHROMAX 250 MG TAB 8513961 AZITHROMYCIN Inactive CEFDINIR 300 MG CAPS by mouth twice a day CEFDINIR 300 MG CAPS 20020704 CEFDINIR Inactive PREDNISONE 20 MG TAB 2 tabs daily for 3 days, 1 t ab daily for 3 days, 1/2 tab daily for 2 days PREDNISONE 20 MG TAB 365450 PREDNISON E Inactive AVELOX 400 MG TABS 1 tab by mouth daily A VELOX 400 MG TABS 976617 MOXIFLOXACIN HCL Inactive AVELOX 400 MG TABS 1 tab by mouth daily A VELOX 400 MG TABS 111671 MOXIFLOXACIN HCL Inactive PREDNISONE 20 MG TAB Take 3 tabs daily for 3 days , 2 tabs daily for 3 days, 1 tab daily for 3 days, 1/2 tab daily for 3 days PREDNISONE 20 MG TAB 232645 PREDNISONE Inactive LEVAQUIN 500 MG TABS take one po QD LEVAQUIN 50 0 MG TABS 750434 LEVOFLOXACIN Inactive AZITHROMYCIN 250 MG TABS 2 po qd x 1 day, then 1 po qd x 4 days AZITHROMYCIN 250 MG TABS 0134228 AZITHROMYCIN Inactiv e MEDROL (REYNA) 4 MG TABS 6 tabs on day 1, 5 tabs on d ay 2, 4 tabs on day 3, 3 tabs on day 4, 2 tabs on day 5, 1 tab on day 6 MEDROL (REYNA) 4 MG TABS METHYLPREDNISOLONE Inactive CHERATUSSIN AC 100-10 MG/5ML SYRP 5ml po q6hr PRN Cough CHERATUSSIN AC 100-10 MG/5ML SYRP 369954 GUAIFENESIN-CODEINE Inacti ve TRIAMCINOLONE ACETONIDE 0.1 % CREA apply three times daily prn r beatrice TRIAMCINOLONE ACETONIDE 0.1 % CREA 8816653 TRIAMCINOLONE ACETONIDE Inactive AZITHROMYCIN 250 MG TABS 2 po qd x 1 day, then 1 po qd x 4 days AZITHROMYCIN 250 MG TABS 5904472 AZITHROMYCIN Inactiv e MEDROL (REYNA) 4 MG [...] days 20 13/03/08 AMOXICILLIN 500 MG CAP 935528 AMOXICILLIN Inactive AMOXICILLIN 500 MG CAP 1 tab by mouth 3 times daily x 10 days 20 14/04/28 AMOXICILLIN 500 MG CAP 688714 AMOXICILLIN Inactive Vital Signs Date Name Value [...] [phone] Encounters Code Encounter Date Provider Facility CPT-68823 Level 3 Est. Patient 10:03:07 CDT Perez Mora MD [facility] [id number] Level 3 Est. Patient 19:50:35 NIGHT TIME NANNY Carlton rich MD [facility] [place]-39944 Level 4 Est. Patient 18:05:01 NIGHT TIME NANNY Carlton rich MD [facility] [place]-00020 Level 3 Est. Patient 10:45:55 NIGHT TIME NANNY Hugo Restrepo MD [facility] [place]-35343 Level 3 Est. Patient 14:12:49 CDT Griffin HERNANDEZ [facility] [place]-13302 Level 3 Est. Patient 17:37:24 CDT Carlton rich MD [facility] [place]-85333 Level 3 Est. Patient 16:51:54 CDT Carlton rich MD [facility] [place]-41215 Level 3 Est. Patient 12:18:11 CDT Hugo Restrepo MD [facility] [place]-47334 Level 3 Est. Patient 11:30:25 CDT Marcy crisostomo MD PhD [facility] [place]-64265 Level 3 Est. Patient 12:00:47 NIGHT TIME NANNY Carlton rich MD [facility] [place]-45272 Level 3 Est. Patient 16:31:06 NIGHT TIME NANNY Carlton rich MD [facility] [place]-43606 Level 3 Est. Patient 16:23:24 NIGHT TIME NANNY Ridge tam DO [facility] [place]-24931 Level 3 Est. Patient 12:34:12 CDT Carlton rich MD [facility] CPT-29890 Level 2 Est. Patient 15:43:33 CDT Robi armstrong MD [facility] CPT-60499 Level 4 Est. Patient 14:04:44 CDT Carlton rich MD [facility] CPT-39362 Level 3 Est. Patient 05:47:59 CDT Ridge tam DO [facility] CPT-01676 Level 3 Est. Patient 13:12:53 NIGHT TIME NANNY Carlton rich MD [facility] CPT-33651 Level 3 Est. Patient 14:26:53 CDT Hugo Restrepo MD [facility] Procedures Code Procedure Name Date Entry Date Standard Desc ription CPT-66341 Fluzone Quadrivalent Intramuscular Suspe nsion 0.5 ML 14:31:55 CDT CPT-87265 Abx/Therapy Injection 13:28:47 NIGHT TIME NANNY CPT-J2930 Solu Medrol 125 mg (Methyl Prednisolone Sodium Succinate) 12:00:47 NIGHT TIME NANNY CPT-44988 Venipuncture Draw Fee 11:33:31 CDT CPT-21150 EKG Trac and Interp 11:21:09 CDT CPT-70244 Chest 2V Frontal and Lat 11:21:09 CDT 12/15 CPT-06521 Venipuncture Draw Fee 08:02:34 CDT CPT-58972 Chest 2V Frontal and Lat 05:47:59 CDT 06/05
--- OUTSIDE RECORDS SUMMARY | 2019-10-08 10:16 | XMS REPORT | Clinical Summary ---
Author Author Caitlin, Juliana Martinez Organization [facility] Address Unknown Phone Unavailable Allergies, Adverse Reactions, Alerts Allergy Name Reaction Description Start Date Severity Status Pr ovider No Known Allergies [facility] Conditions or Problems Problem Name Problem [...] tablet by mouth daily prn anxiety ALPRAZOLAM [id number] Active Carlton Hu MD Active CYMBALTA 30 MG CPEP 1 cap by mouth daily for depression DULOXETINE HCL 26967990491 Active Carlton Hu MD Active CEFDINIR 300 MG CAPS 1 po BID x 10 days CEFDINI R 50537041778 Active Carlton Hu MD Active ZOCOR 40 MG TAB 1 tab by mouth daily SIMVASTATI N 07905385091 No Longer Active Carlton Hu MD Active CYCLOBENZAPRINE HCL 10 MG TABS 1 tablet by mouth BID prn had cherelle n CYCLOBENZAPRINE HCL 41062907396 No Longer Active Carlton Hu MD Active LEVOFLOXACIN 500 MG ORAL TABS 1 tab PO daily x 10 days LEVOFLOXACIN 59858118845 No Longer Active Carlton Hu MD Acti ve PREDNISONE 20 MG ORAL TABS 3 tab PO qd x 2d, 2 tab PO qd x 2d, 1 tab PO qd x 2d, 1/2 tab PO qd x 2d PREDNISONE 50465563936 No Longer Active Carlton Hu MD Active TUSSIONEX PENNKINETIC ER 10-8 MG/5ML ORAL LQCR 5 mL PO q 12 hrs PRN cough HYDROCOD POLST-CHLORPHEN POLST 33377350162 Active Carlton Hu MD Active FLUTICASONE PROPIONATE 50 MCG/ACT SUSP 1 to 2 sprays each no stril daily FLUTICASONE PROPIONATE 59997413599 No Longer Active T jaz HERNANDEZ Active CHERATUSSIN AC 100-10 MG/5ML SYRP 1 tsp by mouth every 4 hours as needed for cough GUAIFENESIN-CODEINE 25979605591 No Longer Activ e Blaine HERNANDEZ Active PROMETHAZINE-CODEINE 6.25-10 MG/5ML SYRP 1 tsp by mout h every 6 hours if needed for cough PROMETHAZINE-CODEINE 72524813899 No Long er Active Blaine HERNANDEZ Active CHERATUSSIN AC 100-10 MG/5ML SYRP 1 tsp by mouth every 4 hours as needed for cough GUAIFENESIN-CODEINE 49298379017 No Longer Activ Jorge Luis HERNANDEZ Active ZITHROMAX Z-REYNA 250 MG TABS 2 today, then 1 daily for 4 days 201 08/30/03 AZITHROMYCIN 40011261452 No Longer Active Columba Raida Act nael ZITHROMAX 250 MG TAB 2 po today, then 1 po q days 2-5 AZITHROMYCIN 81193669582 No Longer Active Carlton Hu MD Acti ve ZITHROMAX Z-REYNA 250 MG TABS 2 today, then 1 daily for 4 days 201 08/07/20 AZITHROMYCIN 84061791758 No Longer Active Columba Raida Act nael AUGMENTIN 875-125 MG TAB 1 po BID x 10 days AMOXICILLIN- POT CLAVULANATE 72950423918 No Longer Active Diya De Guzman APRN Active ZITHROMAX 250 MG TAB 2 po today, then 1 po q days 2-5 AZITHROMYCIN 43441363227 No Longer Active Carlton Hu MD Acti ve TRAMADOL HCL 50 MG TABS 1 po tid with ES Tylenol TRAMADOL HCL 56943979816 Active Carlton Hu MD Active PREMARIN 0.625 MG TABS TAKE 1 TAB BY MOUTH DAILY 07/25 ESTROGENS CONJUGATED 02504832467 No Longer Active Ridge Bess DO Active CYMBALTA 30 MG CPEP 1 cap by mouth daily DULOXE SNEHA HCL 49779872841 No Longer Active Ridge Bess DO Active AMOXICILLIN 500 MG CAP 1 tab by mouth 3 times daily x 10 days 20 14/04/28 AMOXICILLIN 99807092060 No Longer Active Carlton Hu MD Active AMOXICILLIN 500 MG CAP 1 tab by mouth 3 times daily x 10 days 20 13/03/08 AMOXICILLIN 18772015834 No Longer Active Carlton Hu MD Active PROMETHAZINE-CODEINE 6.25-10 MG/5ML SYRP 1 tsp by mouth ever y 8 hours prn cough PROMETHAZINE-CODEINE 72193397826 No Longer Active Robert id M Palatine MD Active MEDROL (REYNA) 4 MG TABS 6 pills x 1 day, then 5 pill s x 1 day then 4 pills x 1 day, then 3 pills x 1 day, then 2 pills x 1 day, then 1 pill x 1 day, then stop METHYLPREDNISOLONE 82198214466 No Longer Active Parris Mora MD Active AZITHROMYCIN 250 MG TABS 2 po qd x 1 day, then 1 po qd x 4 days AZITHROMYCIN 29762031880 No Longer Active Perez Mora MD Active SYMBICORT 160-4.5 MCG/ACT AERO 2 puffs bid with rinse after 2011 BUDESONIDE-FORMOTEROL FUMARATE 31943325221 No Longer Active Perez Mora MD Active LYRICA 75 MG CAPS TAKE 1 CAPSULE BY MOUTH TWICE DAILY 2013 PREGABALIN 80799145816 No Longer Active Carlton Hu MD Active LYRICA 100 MG CAPS Take 1 tab po BID for fibromyalgia PREGABALIN 51424259542 Active Carlton Hu MD Active TOPAMAX 25 MG TABS 1 qHS x 1 week, then 1 BID x 1 week, then 1 qAM and 2 qHS x 1 week, then 2 BID (migraine prevention) TOPIRAMAT E 47300961727 No Longer Active Jerica FUENTES Active TOPAMAX 50 MG TABS take 1 tab po BID for migraines. 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 CHERATUSSIN AC 100-10 MG/5ML SYRP 5ml po q6hr PRN Cough GUAIFENESIN-CODEINE 17934686162 No Longer Active Carlton Hu MD Active MEDROL (REYNA) 4 MG TABS 6 tabs on day 1, 5 tabs on d ay 2, 4 tabs on day 3, 3 tabs on day 4, 2 tabs on day 5, 1 tab on day 6 METHYLPREDNISOLONE 91044681919 No Longer Active Perez Mora MD Active AZITHROMYCIN 250 MG TABS 2 po qd x 1 day, then 1 po qd x 4 days AZITHROMYCIN 06701144767 No Longer Active Perez Mora MD Active PROPRANOLOL HCL 60 MG TABS 1 PO Q D PROPRANOL OL HCL 24092209396 No Longer Active Perez Mora MD Active CHERATUSSIN AC 100-10 MG/5ML SYRP take one tsp po Q 6hours prn c ough GUAIFENESIN-CODEINE 54970712834 No Longer Active Perez Means Active AUGMENTIN 875-125 MG TAB 1 tab by mouth twice daily with food 20 12/03/31 AMOXICILLIN-POT CLAVULANATE 33221091495 No Longer Active Chanel Mora MD Active CHERATUSSIN AC 100-10 MG/5ML SYRP 1 tsp by mouth every 4 hours as needed for cough GUAIFENESIN-CODEINE 09779499626 No Longer Activ e Hugo Restrepo MD Active ACETAMINOPHEN-CODEINE #3 300-30 MG TABS 1 PO Q 4-6 HRS PRN PAIN ACETAMINOPHEN-CODEINE 44520726916 No Longer Active Hugo Restrepo MD Active LEVAQUIN 500 MG TABS take one po QD LEVOFLOXACI N 89142005117 No Longer Active Griffin HERNANDEZ Active PREDNISONE 20 MG TAB Take 3 tabs daily for 3 days , 2 tabs daily for 3 days, 1 tab daily for 3 days, 1/2 tab daily for 3 days P REDNISONE 34969497217 No Longer Active Carlton Hu MD Active AVELOX 400 MG TABS 1 tab by mouth daily MOXIFLO XACIN HCL 74608463112 No Longer Active Carlton Hu MD Active CHERATUSSIN AC 100-10 MG/5ML SYRP 1 tsp by mouth every 4 hours as needed for cough GUAIFENESIN-CODEINE 83836559154 No Longer Activ e Hugo Restrepo MD Active AVELOX 400 MG TABS 1 tab by mouth daily MOXIFLO XACIN HCL 06157828582 No Longer Active Marcy De La Rosa MD PhD Active TERBINAFINE HCL 250 MG TABS 1 qDay TERBINAF INE HCL 90493778534 No Longer Active Marcy De La Rosa MD PhD Active CHERATUSSIN AC 100-10 MG/5ML SYRP 1 tsp by mouth every 4 hours as needed for cough GUAIFENESIN-CODEINE 92676335025 No Longer Activ e Marcy De La Rosa MD PhD Active AVELOX 400 MG TABS 1 tab by mouth daily MOXIFLO XACIN HCL 67488594190 No Longer Active Marcy De La Rosa MD PhD Active HYDROCODONE-ACETAMINOPHEN 5-325 MG TABS 1 po q 6hr PRN cough 201 05/09/16 HYDROCODONE-ACETAMINOPHEN 11230011659 No Longer Active Marcy De La Rosa MD PhD Active PREDNISONE 20 MG TAB 2 tabs daily for 3 days, 1 t ab daily for 3 days, 1/2 tab daily for 2 days PREDNISONE 39410584189 No Longer Active Carlton Hu MD Active CEFDINIR 300 MG CAPS by mouth twice a day CEFDI ODILIA 57186249698 No Longer Active Carlton Hu MD Active HYDROCHLOROTHIAZIDE 25 MG TABS 1 TAB PO DAILY H YDROCHLOROTHIAZIDE 23617457324 Active Carlton Hu MD Active ACETAMINOPHEN-CODEINE #3 300-30 MG TABS 1 tablet po q 4-6hrs prn pain ACETAMINOPHEN-CODEINE 81960902230 No Longer Active Ridge Bess DO Active ZITHROMAX 250 MG TAB 2 po today, then 1 po q days 2-5 AZITHROMYCIN 17552092283 No Longer Active Carlton Hu MD Acti ve CHERATUSSIN AC 100-10 MG/5ML SYRP take 1 tsp po q4-6 hours prn c ough GUAIFENESIN-CODEINE 76520862497 No Longer Active Carlton Hu MD Active ACETAMINOPHEN-CODEINE #3 300-30 MG TABS 1 PO Q 4-6 HR PRN PAIN 2 ACETAMINOPHEN-CODEINE 88160652438 No Longer Active Carlton rich MD Active LORTAB 7.5-500 MG/15ML ELIX 7.5 ml po q 4 hour prn cough HYDROCODONE-ACETAMINOPHEN 87768507960 No Longer Active Carlton Hu MD Active PREDNISONE 20 MG TAB 1 po bid 3 days, then 1 po q day 3 days 201 05/03/07 PREDNISONE 08515943974 No Longer Active Carlton Hu MD Active ELMIRON 100 MG CAPS 2 tablets in the am and 1 tablet at hs PENTOSAN POLYSULFATE SODIUM 02883685501 Active Carlton Hu MD Ac tive CEFDINIR 300 MG CAPS by mouth twice a day CEFDI ODILIA 62479378557 No Longer Active Carlton Hu MD Active CEFDINIR 300 MG CAPS by mouth twice a day CEFDI ODILIA 14357429026 No Longer Active Carlton Hu MD Active CEFDINIR 300 MG CAPS by mouth twice a day CEFDI ODILIA 30042740943 No Longer Active Carlton Hu MD Active TESSALON PERLES 100 MG CAP 1 tablet by mouth 3 times daily a s needed for cough BENZONATATE 68235334387 No Longer Active Carlton bustamante MD Active CEFDINIR 300 MG CAPS by mouth twice a day CEFDI ODILIA 00205451437 No Longer Active Carlton Hu MD Active ZITHROMAX Z-REYNA 250 MG TABS 2 today, then 1 daily for 4 days 201 04/09/17 AZITHROMYCIN 14157721124 No Longer Active Hugo Restrepo MD Active TESSALON PERLES 100 MG CAP 1 tablet by mouth 3 times daily a s needed for cough TESSALON PERLES 100 MG CAP 572350 BENZONATATE I nactive PREDNISONE 20 MG TAB 1 po bid 3 days, then 1 po q day 3 days 201 05/03/07 PREDNISONE 20 MG TAB 153179 PREDNISONE Inactive LORTAB 7.5-500 MG/15ML ELIX 7.5 ml po q 4 hour prn cough LORTAB 7.5-500 MG/15ML ELIX HYDROCODONE-ACETAMINOPHEN Inacti ve ACETAMINOPHEN-CODEINE #3 300-30 MG TABS 1 PO Q 4-6 HR PRN PAIN 2 ACETAMINOPHEN-CODEINE #3 300-30 MG TABS 321866 ACETAMIN OPHEN-CODEINE Inactive CHERATUSSIN AC 100-10 MG/5ML SYRP take 1 tsp po q4-6 hours prn c ough CHERATUSSIN AC 100-10 MG/5ML SYRP 686728 GUAIFENESIN-CO DEINE Inactive ACETAMINOPHEN-CODEINE #3 300-30 MG TABS 1 tablet po q 4-6hrs prn pain ACETAMINOPHEN-CODEINE #3 300-30 MG TABS 021598 ACETAMIN OPHEN-CODEINE Inactive HYDROCODONE-ACETAMINOPHEN 5-325 MG TABS 1 po q 6hr PRN cough 201 05/09/16 HYDROCODONE-ACETAMINOPHEN 5-325 MG TABS 693227 HYDROCODONE-ACETAMINOPHEN Inactive AVELOX 400 MG TABS 1 tab by mouth daily A VELOX 400 MG TABS 531269 MOXIFLOXACIN HCL Inactive CHERATUSSIN AC 100-10 MG/5ML SYRP 1 tsp by mouth every 4 hours as needed for cough CHERATUSSIN AC 100-10 MG/5ML SYRP 768139 GUAIFENESIN-CODEINE Inactive TERBINAFINE HCL 250 MG TABS 1 qDay TERBINAFINE HCL 250 MG TABS 772348 TERBINAFINE HCL Inactive CHERATUSSIN AC 100-10 MG/5ML SYRP 1 tsp by mouth every 4 hours as needed for cough CHERATUSSIN AC 100-10 MG/5ML SYRP 109624 GUAIFENESIN-CODEINE Inactive ACETAMINOPHEN-CODEINE #3 300-30 MG TABS 1 PO Q 4-6 HRS PRN PAIN ACETAMINOPHEN-CODEINE #3 300-30 MG TABS 704310 ACETAMINOPHEN-CODEIN E Inactive CHERATUSSIN AC 100-10 MG/5ML SYRP 1 tsp by mouth every 4 hours as needed for cough CHERATUSSIN AC 100-10 MG/5ML SYRP 235478 GUAIFENESIN-CODEINE Inactive AUGMENTIN 875-125 MG TAB 1 tab by mouth twice daily with food 20 12/03/31 AUGMENTIN 875-125 MG TAB 100240 AMOXICILLIN-POT CLAVULA EFE Inactive CHERATUSSIN AC 100-10 MG/5ML SYRP take one tsp po Q 6hours prn c ough CHERATUSSIN AC 100-10 MG/5ML SYRP 142967 GUAIFENESIN-CO DEINE Inactive PROPRANOLOL HCL 60 MG TABS 1 PO Q D P ROPRANOLOL HCL 60 MG TABS 335430 PROPRANOLOL HCL Inactive TOPAMAX 50 MG TABS take 1 tab po BID for migraines. 12/07/10 TOPAMAX 50 MG TABS 325434 TOPIRAMATE Inactive TOPAMAX 25 MG TABS 1 qHS x 1 week, then 1 BID x 1 week, then 1 qAM and 2 qHS x 1 week, then 2 BID (migraine prevention) TOPAMAX 2 5 MG TABS 257570 TOPIRAMATE Inactive LYRICA 75 MG CAPS TAKE 1 CAPSULE BY MOUTH TWICE DAILY LYRICA 75 MG CAPS PREGABALIN Inactive SYMBICORT 160-4.5 MCG/ACT AERO 2 puffs bid with rinse after 2011 SYMBICORT 160-4.5 MCG/ACT AERO BUDESONIDE-FORMOT SÁNCHEZ FUMARATE Inactive PROMETHAZINE-CODEINE 6.25-10 MG/5ML SYRP 1 tsp by mouth ever y 8 hours prn cough PROMETHAZINE-CODEINE 6.25-10 MG/5ML SYRP 071657 PROMETHAZINE-CODEINE Inactive CYMBALTA 30 MG CPEP 1 cap by mouth daily CYMBALTA 30 MG CPEP 999426 DULOXETINE HCL Inactive PREMARIN 0.625 MG TABS TAKE 1 TAB BY MOUTH DAILY 07/25 PREMARIN 0.625 MG TABS ESTROGENS CONJUGATED Inactive CHERATUSSIN AC 100-10 MG/5ML SYRP 1 tsp by mouth every 4 hours as needed for cough CHERATUSSIN AC 100-10 MG/5ML SYRP 702297 GUAIFENESIN-CODEINE Inactive PROMETHAZINE-CODEINE 6.25-10 MG/5ML SYRP 1 tsp by mout h every 6 hours if needed for cough PROMETHAZINE-CODEINE 6.25-10 MG/5ML SYRP 435978 PROMETHAZINE-CODEINE Inactive CHERATUSSIN AC 100-10 MG/5ML SYRP 1 tsp by mouth every 4 hours as needed for cough CHERATUSSIN AC 100-10 MG/5ML SYRP 153225 GUAIFENESIN-CODEINE Inactive FLUTICASONE PROPIONATE 50 MCG/ACT SUSP 1 to 2 sprays each no stril daily FLUTICASONE PROPIONATE 50 MCG/ACT SUSP 616095 FLUTICASONE PROPIONATE Inactive PREDNISONE 20 MG ORAL TABS 3 tab PO qd x 2d, 2 tab PO qd x 2d, 1 tab PO qd x 2d, 1/2 tab PO qd x 2d PREDNISONE 20 MG ORAL TABS 832132 PREDNISONE Inactive LEVOFLOXACIN 500 MG ORAL TABS 1 tab PO daily x 10 days LEVOFLOXACIN 500 MG ORAL TABS 838590 LEVOFLOXACIN Inactive CYCLOBENZAPRINE HCL 10 MG TABS 1 tablet by mouth BID prn had cherelle n CYCLOBENZAPRINE HCL 10 MG TABS 567037 CYCLOBENZAPRINE H CL Inactive ZOCOR 40 MG TAB 1 tab by mouth daily ZOCOR 40 M G TAB 905425 SIMVASTATIN Inactive ZITHROMAX Z-REYNA 250 MG TABS 2 today, then 1 daily for 4 days 201 04/09/17 ZITHROMAX Z-REYNA 250 MG TABS 7258337 AZITHROMYCIN Inac tive CEFDINIR 300 MG CAPS by mouth twice a day CEFDINIR 300 MG CAPS 20020704 CEFDINIR Inactive CEFDINIR 300 MG CAPS by mouth twice a day CEFDINIR 300 MG CAPS 20020704 CEFDINIR Inactive CEFDINIR 300 MG CAPS by mouth twice a day CEFDINIR 300 MG CAPS 684074 CEFDINIR Inactive CEFDINIR 300 MG CAPS by mouth twice a day CEFDINIR 300 MG CAPS 509459 CEFDINIR Inactive ZITHROMAX 250 MG TAB 2 po today, then 1 po q days 2-5 ZITHROMAX 250 MG TAB 8713595 AZITHROMYCIN Inactive CEFDINIR 300 MG CAPS by mouth twice a day CEFDINIR 300 MG CAPS 20020704 CEFDINIR Inactive PREDNISONE 20 MG TAB 2 tabs daily for 3 days, 1 t ab daily for 3 days, 1/2 tab daily for 2 days PREDNISONE 20 MG TAB 073207 PREDNISON E Inactive AVELOX 400 MG TABS 1 tab by mouth daily A VELOX 400 MG TABS 657784 MOXIFLOXACIN HCL Inactive AVELOX 400 MG TABS 1 tab by mouth daily A VELOX 400 MG TABS 660081 MOXIFLOXACIN HCL Inactive PREDNISONE 20 MG TAB Take 3 tabs daily for 3 days , 2 tabs daily for 3 days, 1 tab daily for 3 days, 1/2 tab daily for 3 days PREDNISONE 20 MG TAB 153284 PREDNISONE Inactive LEVAQUIN 500 MG TABS take one po QD LEVAQUIN 50 0 MG TABS 451489 LEVOFLOXACIN Inactive AZITHROMYCIN 250 MG TABS 2 po qd x 1 day, then 1 po qd x 4 days AZITHROMYCIN 250 MG TABS 8692960 AZITHROMYCIN Inactiv e MEDROL (REYNA) 4 MG TABS 6 tabs on day 1, 5 tabs on d ay 2, 4 tabs on day 3, 3 tabs on day 4, 2 tabs on day 5, 1 tab on day 6 MEDROL (REYNA) 4 MG TABS METHYLPREDNISOLONE Inactive CHERATUSSIN AC 100-10 MG/5ML SYRP 5ml po q6hr PRN Cough CHERATUSSIN AC 100-10 MG/5ML SYRP 637547 GUAIFENESIN-CODEINE Inacti ve TRIAMCINOLONE ACETONIDE 0.1 % CREA apply three times daily prn r beatrice TRIAMCINOLONE ACETONIDE 0.1 % CREA 8227667 TRIAMCINOLONE ACETONIDE Inactive AZITHROMYCIN 250 MG TABS 2 po qd x 1 day, then 1 po qd x 4 days AZITHROMYCIN 250 MG TABS 5237871 AZITHROMYCIN Inactiv e MEDROL (REYNA) 4 MG [...] days 20 13/03/08 AMOXICILLIN 500 MG CAP 897603 AMOXICILLIN Inactive AMOXICILLIN 500 MG CAP 1 tab by mouth 3 times daily x 10 days 20 14/04/28 AMOXICILLIN 500 MG CAP 135659 AMOXICILLIN Inactive ZITHROMAX 250 MG TAB 2 po today, then 1 po q days 2-5 ZITHROMAX 250 MG TAB 9003523 AZITHROMYCIN Inactive AUGMENTIN 875-125 MG TAB 1 po BID x 10 days AUGMENTIN 875- 125 MG TAB 315649 AMOXICILLIN-POT CLAVULANATE Inactive ZITHROMAX Z-REYNA 250 MG TABS 2 today, then 1 daily for 4 days 201 08/07/20 ZITHROMAX Z-REYNA 250 MG TABS 7738574 AZITHROMYCIN Inac tive ZITHROMAX 250 MG TAB 2 po today, then 1 po q days 2-5 ZITHROMAX 250 MG TAB 6589912 AZITHROMYCIN Inactive ZITHROMAX Z-REYNA 250 MG TABS 2 today, then 1 daily for 4 days 201 08/30/03 ZITHROMAX Z-REYNA 250 MG TABS 2904810 AZITHROMYCIN Inac tive Vital Signs Date Name [...] Measured Encounters Code Encounter Date Provider Facility CPT-92511 Level 4 Est. Patient 14:36:51 CDT Carlton rich MD [facility] CPT-13227 Level 3 Est. Patient 18:16:00 DISTANCE EDUCATION DIRECTOR Blaine HERNANDEZ [facility] CPT-90134 Level 3 Est. Patient 09:45:49 DISTANCE EDUCATION DIRECTOR Carlton rich MD [facility] CPT-28918 Level 3 Est. Patient 13:19:20 CDT Carlton rich MD [facility] CPT-27421 Level 3 Est. Patient 13:06:43 CDT Ridge tam DO [facility] CPT-68304 Level 3 Est. Patient 10:03:07 CDT Perez Mora MD [facility] CPT-75555 Level 3 Est. Patient 19:50:35 DISTANCE EDUCATION DIRECTOR Carlton rich MD [facility] CPT-19475 Level 4 Est. Patient 18:05:01 DISTANCE EDUCATION DIRECTOR Carlton rich MD [facility]-53048 Level 3 Est. Patient 10:45:55 DISTANCE EDUCATION DIRECTOR Hugo Restrepo MD [facility]-71361 Level 3 Est. Patient 14:12:49 CDT Griffin HERNANDEZ [facility]-83445 Level 3 Est. Patient 17:37:24 CDT Carlton rich MD [facility]-73692 Level 3 Est. Patient 16:51:54 CDT Carlton rich MD [facility]-25864 Level 3 Est. Patient 12:18:11 CDT Hugo Restrepo MD [facility]-31969 Level 3 Est. Patient 11:30:25 CDT Marcy crisostomo MD PhD [facility]-82553 Level 3 Est. Patient 12:00:47 DISTANCE EDUCATION DIRECTOR Carlton rich MD [facility]-61646 Level 3 Est. Patient 16:31:06 DISTANCE EDUCATION DIRECTOR Carlton rich MD [facility]-64057 Level 3 Est. Patient 16:23:24 DISTANCE EDUCATION DIRECTOR Ridge tam DO [facility]-09507 Level 3 Est. Patient 12:34:12 CDT Carlton rich MD [facility] CPT-90372 Level 2 Est. Patient 15:43:33 CDT Robi armstrong MD [facility]-45289 Level 4 Est. Patient 14:04:44 CDT Carlton rich MD [facility]-07875 Level 3 Est. Patient 05:47:59 CDT Ridge tam [facility] [place]-18852 Level 3 Est. Patient 13:12:53 DISTANCE EDUCATION DIRECTOR Carlton rich MD [facility] CPT-54125 Level 3 Est. Patient 14:26:53 CDT Hugo Restrepo MD [facility] Procedures Code Procedure Name Date Entry Date Standard Desc ription CPT-69506 Hip bilat min 2V w AP pelvis 13:16:20 CDT 2 CPT-92642 Pelvis only 13:07:33 CDT CPT-24173 Spec Collection and Handling Fee 11:25:12 C DT CPT-38316 Fluzone Quadrivalent Intramuscular Suspe nsion 0.5 ML 14:31:55 CDT CPT-04438 Abx/Therapy Injection 13:28:47 DISTANCE EDUCATION DIRECTOR CPT-J2930 Solu Medrol 125 mg (Methyl Prednisolone Sodium Succinate) 12:00:47 DISTANCE EDUCATION DIRECTOR CPT-80101 Venipuncture Draw Fee 11:33:31 CDT CPT-53953 EKG Trac and Interp 11:21:09 CDT CPT-02574 Chest 2V Frontal and Lat 11:21:09 CDT 12/15 CPT-50275 Venipuncture Draw Fee 08:02:34 CDT CPT-06227 Chest 2V Frontal and Lat 05:47:59 CDT 06/05
--- OUTSIDE RECORDS SUMMARY | 2019-10-08 10:16 | XMS REPORT | Clinical Summary ---
Author Author Caitlin, Juliana Martinez Organization [facility] Address Unknown Phone Unavailable Allergies, Adverse [...] x 10 days 20 16/03/22 AMOXICILLIN-POT CLAVULANATE [id number] No Longer Active Elise Whitmore APRN Active TERBINAFINE HCL 250 MG ORAL TABLET 1 qDay for nail fungus 7 TERBINAFINE HCL 39277751159 No Longer Active Carlton Harkins ctive TUSSIONEX PENNKINETIC ER 10-8 MG/5ML ORAL SUSPENSION E XTENDED RELEASE 5ml po q12hr PRN Cough HYDROCOD POLST-CHLORPHEN POLST 12385343586 Active Carlton Hu MD Active PREDNISONE 20 MG ORAL TABLET 1 tab twice daily for 3 d ay, then one daily for three days PREDNISONE 57299122126 Active Carlton Hu MD Active AMOXICILLIN 500 MG ORAL CAPSULE 1 cap by mouth three times a day AMOXICILLIN 13375041454 No Longer Active Carlton Hu MD Active ELMIRON 100 MG ORAL CAPSULE 2 tablets in the am and 1 tablet at hs PENTOSAN POLYSULFATE SODIUM 42177327844 No Longer Active Robert Hu MD Active MUCINEX D 60-600 MG ORAL TABLET EXTENDED RELEASE 12 HOUR 1 t ab po q am PSEUDOEPHEDRINE-GUAIFENESIN 32342419801 No Longer Act nael Carlton Hu MD Active MUCINEX DM MAXIMUM STRENGTH 60-1200 MG ORAL TABLET EXT ENDED RELEASE 12 HOUR 1 tab po q am DEXTROMETHORPHAN-GUAIFENESIN 53353876651 No Longer Active Carlton Hu MD Active TUSSIONEX PENNKINETIC ER 10-8 MG/5ML ORAL SUSPENSION E XTENDED RELEASE 5ml po q12hr PRN Cough HYDROCOD POLST-CHLORPHEN POLST 5 8370790186 No Longer Active Carlton Hu MD Active POTASSIUM CHLORIDE ER 20 MEQ ORAL TABLET EXTENDED RELE ASE Take 1 by mouth 4 times daily for 7 days POTASSIUM CHLORIDE 21422743236 No Longer Active Carlton Hu MD Active ZITHROMAX 250 MG ORAL TABLET 2 po today, then 1 po q days 2-5 20 14/09/04 AZITHROMYCIN 50871603477 No Longer Active Elise Whitmore APRN Active TUSSIONEX PENNKINETIC ER 10-8 MG/5ML ORAL SUSPENSION E XTENDED RELEASE 5 ml twice a day as needed for cough HYDROCOD POLST-CHLORPH EN POLST 79516895021 No Longer Active Elise Whitmore APRN Active MONTELUKAST SODIUM 10 MG ORAL TABLET 1 po daily for Allergy MONTELUKAST SODIUM 38836299212 Active Carlton Hu MD Ac tive TUSSIONEX PENNKINETIC ER 10-8 MG/5ML ORAL SUSPENSION E XTENDED RELEASE 5ml po q12hr PRN Cough HYDROCOD POLST-CHLORPHEN POLST 5 8304205614 No Longer Active Hugo Restrepo MD Active GABAPENTIN 100 MG ORAL CAPSULE 1 po BID for fibromyalgia GABAPENTIN 37063206558 Active Carlton Hu MD Active LYRICA 100 MG ORAL CAPSULE Take 1 tab po BID for fibromyalgia 20 11/08/21 PREGABALIN 23325028920 No Longer Active Elise Whitmore APRN Active PROAIR HFA 108 (90 Base) MCG/ACT INHALATION AEROSOL SO LUTION 2 puffs four times a day as needed ALBUTEROL SULFATE 65617673060 Active Lyndsay Whitmore APRN Active PREDNISONE 20 MG ORAL TABLET 2 tabs daily for 3 days, 1 tab daily for 3 days, 1/2 tab daily for 2 days PREDNISONE 62256355969 No Longer Active Jillina Frazell BILL Active TUSSIONEX PENNKINETIC ER 10-8 MG/5ML ORAL SUSPENSION E XTENDED RELEASE 5 mL PO q 12 hrs PRN cough HYDROCOD POLST-CHLORPHEN POLST 830991 93213 No Longer Active Jillina Frazell STONE [place] Active FLUTICASONE PROPIONATE 50 MCG/ACT NASAL SUSPENSION 2 s prays each nostril daily until bottle is empty FLUTICASONE PROPIONATE 727885452 99 No Longer Active Jillina Frazell STONE [place] Active ASMANEX 60 METERED DOSES 220 MCG/INH INHALATION AEROSO L POWDER BREATH ACTIVATED 1 puff bid with rinse after MOMETASONE FUROATE 3962873 4102 No Longer Active Jillina Frazell STONE [place] Active ZITHROMAX Z-REYNA 250 MG ORAL TABLET 2 today, then 1 daily for 4 d ays AZITHROMYCIN 84457216839 No Longer Active Elise Whitmore APRN Active TUSSIONEX PENNKINETIC ER 10-8 MG/5ML ORAL SUSPENSION E XTENDED RELEASE 5ml po q12hr PRN Cough HYDROCOD POLST-CHLORPHEN POLST 5 5356561070 No Longer Active Elise Whitmore APRN Active PREDNISONE 20 MG ORAL TABLET 2 tabs daily for 3 days, 1 tab daily for 3 days, 1/2 tab daily for 2 days PREDNISONE 00103051475 No Longer Active Diya De Guzman APRN Active AMOXICILLIN 500 MG ORAL CAPSULE 2 po BID x 10 days 201 09/29/08 AMOXICILLIN 62658788067 No Longer Active Jillina Cesarl [place]ONE [place] Act nael SINGULAIR 10 MG ORAL TABLET 1 po qday for allergies 20 14/01/12 MONTELUKAST SODIUM 28570539161 No Longer Active Carlton Hu MD Active LEVAQUIN 500 MG ORAL TABLET 1 tablet by mouth daily 20 13/09/24 LEVOFLOXACIN 06247493492 No Longer Active Carlton Hu MD Acti ve FLUTICASONE PROPIONATE 50 MCG/ACT NASAL SUSPENSION 2 s prays each nostril daily for 2 weeks, then 1 spray each nostril daily. FLUTICASONE PROPIONATE 22047900538 Active Elise Whitmore APRN Active ZITHROMAX 250 MG ORAL TABLET 2 po today, then 1 po q days 2-5 20 13/08/10 AZITHROMYCIN 19472052223 No Longer Active Elise Whitmore APRN Active XANAX 0.5 MG ORAL TABLET one tablet by mouth daily prn anxiety 2015 ALPRAZOLAM 93373735282 Active Carlton Hu MD Active CYMBALTA 30 MG ORAL CAPSULE DELAYED RELEASE PARTICLES 1 cap by mouth daily for depression DULOXETINE HCL 58023396453 Active Carlton beltrán MD Active CEFDINIR 300 MG ORAL CAPSULE 1 po BID x 10 days CEFDINIR 24930002869 No Longer Active Carlton Hu MD Active ZOCOR 40 MG ORAL TABLET 1 tab by mouth daily SI MVASTATIN 67965695739 No Longer Active Carlton Hu MD Active CYCLOBENZAPRINE HCL 10 MG ORAL TABLET 1 tablet by mouth BID prn had pain CYCLOBENZAPRINE HCL 67240650594 No Longer Active Jayden Hu MD Active LEVOFLOXACIN 500 MG ORAL TABLET 1 tab PO daily x 10 days LEVOFLOXACIN 94083442322 No Longer Active Carlton Hu MD Acti ve PREDNISONE 20 MG ORAL TABLET 3 tab PO qd x 2d, 2 tab P O qd x 2d, 1 tab PO qd x 2d, 1/2 tab PO qd x 2d PREDNISONE 03629046472 No Lo nger Active Carlton Hu MD Active FLUTICASONE PROPIONATE 50 MCG/ACT NASAL SUSPENSION 1 t o 2 sprays each nostril daily FLUTICASONE PROPIONATE 89578486180 No Longer Ac tive Blaine HERNANDEZ Active CHERATUSSIN AC 100-10 MG/5ML ORAL SYRUP 1 tsp by mouth every 4 hours as needed for cough GUAIFENESIN-CODEINE 40564984405 No Longe r Active Blaine HERNANDEZ Active PROMETHAZINE-CODEINE 6.25-10 MG/5ML ORAL SYRUP 1 tsp b y mouth every 6 hours if needed for cough PROMETHAZINE-CODEINE 50458883206 No Longer Active Blaine HERNANDEZ Active CHERATUSSIN AC 100-10 MG/5ML ORAL SYRUP 1 tsp by mouth every 4 hours as needed for cough GUAIFENESIN-CODEINE 61130524668 No Longe r Active Blaine HERNANDEZ Active ZITHROMAX Z-REYNA 250 MG ORAL TABLET 2 today, then 1 daily for 4 d ays AZITHROMYCIN 18532022654 No Longer Active Columba Parrish Act nael ZITHROMAX 250 MG ORAL TABLET 2 po today, then 1 po q days 2-5 20 14/03/21 AZITHROMYCIN 64495465758 No Longer Active Carlton Hu MD Active ZITHROMAX Z-REYNA 250 MG ORAL TABLET 2 today, then 1 daily for 4 d ays AZITHROMYCIN 60289903950 No Longer Active Columba Parrish Act nael AUGMENTIN 875-125 MG ORAL TABLET 1 po BID x 10 days 13/01/20 AMOXICILLIN-POT CLAVULANATE 52189742962 No Longer Active Diya Daphnebrayan KHAN Active ZITHROMAX 250 MG ORAL TABLET 2 po today, then 1 po q days 2-5 12/08/14 AZITHROMYCIN 52734252411 No Longer Active Carlton Hu MD Active TRAMADOL HCL 50 MG ORAL TABLET 1 po tid with ES Tylenol TRAMADOL HCL 88881752499 Active Carlton Hu MD Active PREMARIN 0.625 MG ORAL TABLET TAKE 1 TAB BY MOUTH DAILY ESTROGENS CONJUGATED 08773974329 No Longer Active Ridge Bess DO A ctive CYMBALTA 30 MG ORAL CAPSULE DELAYED RELEASE PARTICLES 1 cap by mouth daily DULOXETINE HCL 48519205547 No Longer Active Ridge tam DO Active AMOXICILLIN 500 MG ORAL CAPSULE 1 tab by mouth 3 times daily x 10 days AMOXICILLIN 00423927039 No Longer Active Carlton bustamante MD Active AMOXICILLIN 500 MG ORAL CAPSULE 1 tab by mouth 3 times daily x 10 days AMOXICILLIN 66387914728 No Longer Active Carlton bustamante MD Active PROMETHAZINE-CODEINE 6.25-10 MG/5ML ORAL SYRUP 1 tsp b y mouth every 8 hours prn cough PROMETHAZINE-CODEINE 51495922209 No Longer Acti ve Carlton Hu MD Active MEDROL 4 MG ORAL TABLET THERAPY PACK 6 pills x 1 day, then 5 pills x 1 day then 4 pills x 1 day, then 3 pills x 1 day, then 2 pills x 1 day, then 1 pill x 1 day, then stop METHYLPREDNISOLONE 26777914158 No Long er Active Perez Mora MD Active AZITHROMYCIN 250 MG ORAL TABLET 2 po qd x 1 day, then 1 po q d x 4 days AZITHROMYCIN 98168243983 No Longer Active Perez Ambriz MD Active SYMBICORT 160-4.5 MCG/ACT INHALATION AEROSOL 2 puffs bid wit h rinse after BUDESONIDE-FORMOTEROL FUMARATE 49216144764 N o Longer Active Perez Mora MD Active LYRICA 75 MG ORAL CAPSULE TAKE 1 CAPSULE BY MOUTH TWICE DAILY PREGABALIN 45401530498 No Longer Active Carlton Hu MD Acti ve TOPAMAX 25 MG ORAL TABLET 1 qHS x 1 week, then 1 BID x 1 week, then 1 qAM and 2 qHS x 1 week, then 2 BID (migraine prevention) T OPIRAMATE 35133088707 No Longer Active Jerica FUENTES Active TOPAMAX 50 MG ORAL TABLET take 1 tab po BID for migraines. 07/02 TOPIRAMATE 54132179856 No Longer Active Jerica FUENTES Active TOPAMAX 100 MG ORAL TABLET Take 1 tablet po bid TO PIRAMATE 99612419759 Active Carlton Hu MD Active TRIAMCINOLONE ACETONIDE 0.1 % EXTERNAL CREAM apply three roger es daily prn rash TRIAMCINOLONE ACETONIDE 81162408829 No Longer Active Carlton Hu MD Active PAXIL 40 MG ORAL TABLET take 1 tab po qday for depression 0 PAROXETINE HCL 45572297845 Active Carlton Hu MD Active CHERATUSSIN AC 100-10 MG/5ML ORAL SYRUP 5ml po q6hr PRN Cough 20 13/04/14 GUAIFENESIN-CODEINE 99912198835 No Longer Active Carlton Hu MD Active MEDROL 4 MG ORAL TABLET THERAPY PACK 6 tabs on day 1, 5 tabs on day 2, 4 tabs on day 3, 3 tabs on day 4, 2 tabs on day 5, 1 tab on day 6 2013 METHYLPREDNISOLONE 09587023849 No Longer Active Perez Mora MD Active AZITHROMYCIN 250 MG ORAL TABLET 2 po qd x 1 day, then 1 po q d x 4 days AZITHROMYCIN 73893742813 No Longer Active Perez Ambriz MD Active PROPRANOLOL HCL 60 MG ORAL TABLET 1 PO Q D PROPRANOLOL HCL 99710786723 No Longer Active Perez Mora MD Activ e CHERATUSSIN AC 100-10 MG/5ML ORAL SYRUP take one tsp po Q 6h ours prn cough GUAIFENESIN-CODEINE 42161647404 No Longer Active Zia Mora MD Active AUGMENTIN 875-125 MG ORAL TABLET 1 tab by mouth twice daily with food AMOXICILLIN-POT CLAVULANATE 40133128008 No Longer Act nael Perez Mora MD Active CHERATUSSIN AC 100-10 MG/5ML ORAL SYRUP 1 tsp by mouth every 4 hours as needed for cough GUAIFENESIN-CODEINE 44475660077 No Longe r Active Hugo Restrepo MD Active ACETAMINOPHEN-CODEINE #3 300-30 MG ORAL TABLET 1 PO Q 4-6 HRS [place] N PAIN ACETAMINOPHEN-CODEINE 64090947945 No Longer Active Hugo Restrepo MD Active LEVAQUIN 500 MG ORAL TABLET take one po QD LEVO FLOXACIN 44928375134 No Longer Active Griffin HERNANDEZ Active PREDNISONE 20 MG ORAL TABLET Take 3 tabs daily for 3 d ays, 2 tabs daily for 3 days, 1 tab daily for 3 days, 1/2 tab daily for 3 days 11/07 PREDNISONE 44795343205 No Longer Active Carlton Hu MD Acti ve AVELOX 400 MG ORAL TABLET 1 tab by mouth daily MOXIFLOXACIN HCL 82314329333 No Longer Active Carlton uH MD Active CHERATUSSIN AC 100-10 MG/5ML ORAL SYRUP 1 tsp by mouth every 4 hours as needed for cough GUAIFENESIN-CODEINE 85201353158 No Longe r Active Hugo Restrepo MD Active AVELOX 400 MG ORAL TABLET 1 tab by mouth daily MOXIFLOXACIN HCL 47882485295 No Longer Active Marcy De La Rosa MD PhD Active TERBINAFINE HCL 250 MG ORAL TABLET 1 qDay T ERBINAFINE HCL 30412553862 No Longer Active Marcy De La Rosa MD PhD Active CHERATUSSIN AC 100-10 MG/5ML ORAL SYRUP 1 tsp by mouth every 4 hours as needed for cough GUAIFENESIN-CODEINE 78857728901 No Longe r Active Marcy De La Rosa MD PhD Active AVELOX 400 MG ORAL TABLET 1 tab by mouth daily MOXIFLOXACIN HCL 83646299296 No Longer Active Marcy De La Rosa MD PhD Active HYDROCODONE-ACETAMINOPHEN 5-325 MG ORAL TABLET 1 po q 6hr PRN co ugh HYDROCODONE-ACETAMINOPHEN 21499839606 No Longer Active Marcy De La Rosa MD PhD Active PREDNISONE 20 MG ORAL TABLET 2 tabs daily for 3 days, 1 tab daily for 3 days, 1/2 tab daily for 2 days PREDNISONE 58184897071 No Longer Active Carlton Hu MD Active CEFDINIR 300 MG ORAL CAPSULE by mouth twice a day 2011 CEFDINIR 85390075277 No Longer Active Carlton Hu MD Acti ve HYDROCHLOROTHIAZIDE 25 MG ORAL TABLET 1 TAB PO DAILY HYDROCHLOROTHIAZIDE 24110016597 Active Carlton Hu MD A ctive ACETAMINOPHEN-CODEINE #3 300-30 MG ORAL TABLET 1 tablet po q 4-6 hrs prn pain ACETAMINOPHEN-CODEINE 91215529314 No Longer Active Ridge Bess DO Active ZITHROMAX 250 MG ORAL TABLET 2 po today, then 1 po q days 2-5 20 03/07/07 AZITHROMYCIN 24245868087 No Longer Active Carlton Hu MD Active CHERATUSSIN AC 100-10 MG/5ML ORAL SYRUP take 1 tsp po q4-6 h ours prn cough GUAIFENESIN-CODEINE 74476083884 No Longer Active Jayden Hu MD Active ACETAMINOPHEN-CODEINE #3 300-30 MG ORAL TABLET 1 PO Q 4-6 HR PRN PAIN ACETAMINOPHEN-CODEINE 24861177781 No Longer Active Arnol Hu MD Active LORTAB 7.5-500 MG/15ML ORAL ELIXIR 7.5 ml po q 4 hour prn cough HYDROCODONE-ACETAMINOPHEN 63525934603 No Longer Active Carlton Hu MD Active PREDNISONE 20 MG ORAL TABLET 1 po bid 3 days, then 1 po q day 3 days PREDNISONE 16956982177 No Longer Active Carlton Hu MD Active CEFDINIR 300 MG ORAL CAPSULE by mouth twice a day 2011 CEFDINIR 89084113728 No Longer Active Carlton Hu MD Acti ve CEFDINIR 300 MG ORAL CAPSULE by mouth twice a day 2010 CEFDINIR 61182117063 No Longer Active Carlton Hu MD Acti ve CEFDINIR 300 MG ORAL CAPSULE by mouth twice a day 2010 CEFDINIR 18682322707 No Longer Active Carlton Hu MD Acti ve TESSALON PERLES 100 MG ORAL CAPSULE 1 tablet by mouth 3 times daily as needed for cough BENZONATATE 36182332835 No Longer Active Carlton Hu MD Active CEFDINIR 300 MG ORAL CAPSULE by mouth twice a day 2010 CEFDINIR 00110962680 No Longer Active Carlton Hu MD Acti ve ZITHROMAX Z-REYNA 250 MG ORAL TABLET 2 today, then 1 daily for 4 d ays AZITHROMYCIN 31919353307 No Longer Active Hugo Restrepo MD Active TESSALON PERLES 100 MG ORAL CAPSULE 1 tablet by mouth 3 times daily as needed for cough TESSALON PERLES 100 MG ORAL CAPSULE 80025 7 BENZONATATE Inactive PREDNISONE 20 MG ORAL TABLET 1 po bid 3 days, then 1 po q day 3 days PREDNISONE 20 MG ORAL TABLET 744086 PREDNISONE Greer ctive LORTAB 7.5-500 MG/15ML ORAL [...] cough CHERATUSSIN AC 100-10 MG/5ML ORAL SYRUP 092251 GUAIFENESIN-CODEINE Inactive ACETAMINOPHEN-CODEINE #3 300-30 MG ORAL TABLET 1 tablet po q 4-6 hrs prn pain ACETAMINOPHEN-CODEINE #3 300-30 MG ORAL TABLET ACETAMINOPHEN-CODEINE Inactive HYDROCODONE-ACETAMINOPHEN 5-325 MG ORAL TABLET 1 po q 6hr PRN co ugh HYDROCODONE-ACETAMINOPHEN 5-325 MG ORAL TABLET 489331 HYDROCODONE-ACETAMINOPHEN Inactive AVELOX 400 MG ORAL TABLET 1 tab by mouth daily AVELOX 400 MG ORAL TABLET 671452 MOXIFLOXACIN HCL Inactive CHERATUSSIN AC 100-10 MG/5ML ORAL SYRUP 1 tsp by mouth every 4 hours as needed for cough CHERATUSSIN AC 100-10 MG/5ML ORAL SYRUP 9 02381 GUAIFENESIN-CODEINE Inactive TERBINAFINE HCL 250 MG ORAL TABLET 1 qDay 07/08 TERBINAFINE HCL 250 MG ORAL TABLET 110055 TERBINAFINE HCL Inactive CHERATUSSIN AC 100-10 MG/5ML ORAL SYRUP 1 tsp by mouth every 4 hours as needed for cough CHERATUSSIN AC 100-10 MG/5ML ORAL SYRUP 9 94953 GUAIFENESIN-CODEINE Inactive ACETAMINOPHEN-CODEINE #3 300-30 MG ORAL TABLET 1 PO Q 4-6 HRS [place] N PAIN ACETAMINOPHEN-CODEINE #3 300-30 MG ORAL TABLET ACETAMINOPHEN-CODEINE Inactive CHERATUSSIN AC 100-10 MG/5ML ORAL SYRUP 1 tsp by mouth every 4 hours as needed for cough CHERATUSSIN AC 100-10 MG/5ML ORAL SYRUP 9 27604 GUAIFENESIN-CODEINE Inactive AUGMENTIN 875-125 MG ORAL TABLET 1 tab by mouth twice daily with food AUGMENTIN 875-125 MG ORAL TABLET 084421 AMOXICIL MADELINE-POT CLAVULANATE Inactive CHERATUSSIN AC 100-10 MG/5ML ORAL SYRUP take one tsp po Q 6h ours prn cough CHERATUSSIN AC 100-10 MG/5ML ORAL SYRUP 018002 GUAIFENESIN-CODEINE Inactive PROPRANOLOL HCL 60 MG ORAL TABLET 1 PO Q D PROPRANOLOL HCL 60 MG ORAL TABLET 602585 PROPRANOLOL HCL Inactive TOPAMAX 50 MG ORAL TABLET take 1 tab po BID for migraines. 07/02 TOPAMAX 50 MG ORAL TABLET 275709 TOPIRAMATE Inacti ve TOPAMAX 25 MG ORAL TABLET 1 qHS x 1 week, then 1 BID x 1 week, then 1 qAM and 2 qHS x 1 week, then 2 BID (migraine prevention) TOPAMAX 25 MG ORAL TABLET 579685 TOPIRAMATE Inactive LYRICA 75 MG ORAL CAPSULE TAKE 1 CAPSULE BY MOUTH TWICE DAILY LYRICA 75 MG ORAL CAPSULE PREGABALIN Inactive SYMBICORT 160-4.5 MCG/ACT INHALATION AEROSOL 2 puffs bid wit h rinse after SYMBICORT 160-4.5 MCG/ACT INHALATION AEROSOL BUDESONIDE- FORMOTEROL FUMARATE Inactive PROMETHAZINE-CODEINE 6.25-10 MG/5ML ORAL SYRUP 1 tsp b y mouth every 8 hours prn cough PROMETHAZINE-CODEINE 6.25-10 MG/ 5ML ORAL SYRUP 824798 PROMETHAZINE-CODEINE Inactive CYMBALTA 30 MG ORAL CAPSULE DELAYED RELEASE PARTICLES 1 cap by mouth daily CYMBALTA 30 MG ORAL CAPSULE DELAYED RELE ASE PARTICLES 829793 DULOXETINE HCL Inactive PREMARIN 0.625 MG ORAL TABLET TAKE 1 TAB BY MOUTH DAILY PREMARIN 0.625 MG ORAL TABLET ESTROGENS CONJUGATED Inactive CHERATUSSIN AC 100-10 MG/5ML ORAL SYRUP 1 tsp by mouth every 4 hours as needed for cough CHERATUSSIN AC 100-10 MG/5ML ORAL SYRUP 9 30947 GUAIFENESIN-CODEINE Inactive PROMETHAZINE-CODEINE 6.25-10 MG/5ML ORAL SYRUP 1 tsp b y mouth every 6 hours if needed for cough PROMETHAZINE-CODEINE 6.25-10 MG/5ML ORAL SYRUP 245474 PROMETHAZINE-CODEINE Inactive CHERATUSSIN AC 100-10 MG/5ML ORAL SYRUP 1 tsp by mouth every 4 hours as needed for cough CHERATUSSIN AC 100-10 MG/5ML ORAL SYRUP 9 44835 GUAIFENESIN-CODEINE Inactive FLUTICASONE PROPIONATE 50 MCG/ACT NASAL SUSPENSION 1 t o 2 sprays each nostril daily FLUTICASONE PROPIONATE 50 MCG/AC T NASAL SUSPENSION 9620327 FLUTICASONE PROPIONATE Inactive PREDNISONE 20 MG ORAL TABLET 3 tab PO qd x 2d, 2 tab P O qd x 2d, 1 tab PO qd x 2d, 1/2 tab PO qd x 2d PREDNISONE 20 MG ORAL TAB LET 623907 PREDNISONE Inactive LEVOFLOXACIN 500 MG ORAL TABLET 1 tab PO daily x 10 days LEVOFLOXACIN 500 MG ORAL TABLET 065958 LEVOFLOXACIN Inactive CYCLOBENZAPRINE HCL 10 MG ORAL TABLET 1 tablet by mouth BID prn had pain CYCLOBENZAPRINE HCL 10 MG ORAL TABLET 472382 CYCLOBENZAPRINE HCL Inactive ZOCOR 40 MG ORAL TABLET 1 tab by mouth daily 4 ZOCOR 40 MG ORAL TABLET 312232 SIMVASTATIN Inactive TUSSIONEX PENNKINETIC ER 10-8 MG/5ML [...] FLUTICASONE PROPIO EFE 50 MCG/ACT NASAL SUSPENSION 0460609 FLUTICASONE PROPIONATE Inactive TUSSIONEX PENNKINETIC ER 10-8 [...] ays ZITHROMAX Z-REYNA 250 MG ORAL TABLET 863560 AZITHROMYCIN Inactive CEFDINIR 300 MG ORAL CAPSULE by mouth twice a day 2010 CEFDINIR 300 MG ORAL CAPSULE 090587 CEFDINIR Inactive CEFDINIR 300 MG ORAL CAPSULE by mouth twice a day 2010 CEFDINIR 300 MG ORAL CAPSULE 993971 CEFDINIR Inactive CEFDINIR 300 MG ORAL CAPSULE by mouth twice a day 2010 CEFDINIR 300 MG ORAL CAPSULE 963718 CEFDINIR Inactive CEFDINIR 300 MG ORAL CAPSULE by mouth twice a day 2011 CEFDINIR 300 MG ORAL CAPSULE 474309 CEFDINIR Inactive ZITHROMAX 250 MG ORAL TABLET 2 po today, then 1 po q days 2-5 03/07/07 ZITHROMAX 250 MG ORAL TABLET 073835 AZITHROMYCIN Greer ctive CEFDINIR 300 MG ORAL CAPSULE by mouth twice a day 2011 CEFDINIR 300 MG ORAL CAPSULE 797791 CEFDINIR Inactive PREDNISONE 20 MG ORAL TABLET 2 tabs daily for 3 days, 1 tab daily for 3 days, 1/2 tab daily for 2 days PREDNISONE 20 MG ORAL T ABLET 911766 PREDNISONE Inactive AVELOX 400 MG ORAL TABLET 1 tab by mouth daily AVELOX 400 MG ORAL TABLET 049515 MOXIFLOXACIN HCL Inactive AVELOX 400 MG ORAL TABLET 1 tab by mouth daily AVELOX 400 MG ORAL TABLET 360717 MOXIFLOXACIN HCL Inactive PREDNISONE 20 MG ORAL TABLET Take 3 tabs daily for 3 d ays, 2 tabs daily for 3 days, 1 tab daily for 3 days, 1/2 tab daily for 3 days 11/07 PREDNISONE 20 MG ORAL TABLET 429584 PREDNISONE Inactive LEVAQUIN 500 MG ORAL TABLET take one po QD LEVAQUIN 500 MG ORAL TABLET 995092 LEVOFLOXACIN Inactive AZITHROMYCIN 250 MG ORAL TABLET 2 po qd x 1 day, then 1 po q d x 4 days AZITHROMYCIN 250 MG ORAL TABLET 666322 AZITHROMY GIOVANNI Inactive MEDROL 4 MG ORAL TABLET THERAPY PACK 6 tabs on day 1, 5 tabs on day 2, 4 tabs on day 3, 3 tabs on day 4, 2 tabs on day 5, 1 tab on day 6 2013 MEDROL 4 MG ORAL TABLET THERAPY PACK 583110 METHYLPREDNISOLONE Greer ctive CHERATUSSIN AC 100-10 MG/5ML ORAL SYRUP 5ml po q6hr PRN Cough 20 13/04/14 CHERATUSSIN AC 100-10 MG/5ML ORAL SYRUP 355754 GUAIFENE SIN-CODEINE Inactive TRIAMCINOLONE ACETONIDE 0.1 % EXTERNAL CREAM apply three roger es daily prn rash TRIAMCINOLONE ACETONIDE 0.1 % EXTERNAL CREAM 101 4314 TRIAMCINOLONE ACETONIDE Inactive AZITHROMYCIN 250 MG ORAL TABLET 2 po qd x 1 day, then 1 po q d x 4 days AZITHROMYCIN 250 MG ORAL TABLET 471890 AZITHROMY GIOVANNI Inactive MEDROL 4 MG ORAL TABLET THERAPY PACK 6 pills x 1 day, then 5 pills x 1 day then 4 pills x 1 day, then 3 pills x 1 day, then 2 pills x 1 day, then 1 pill x 1 day, then stop MEDROL 4 MG ORAL TABLET THERAPY PACK 238692 METHYLPREDNISOLONE Inactive AMOXICILLIN 500 MG ORAL CAPSULE 1 tab by mouth 3 times daily x 10 days AMOXICILLIN 500 MG ORAL CAPSULE 835718 AMOXICILL IN Inactive AMOXICILLIN 500 MG ORAL CAPSULE 1 tab by mouth 3 times daily x 10 days AMOXICILLIN 500 MG ORAL CAPSULE 613503 AMOXICILL IN Inactive ZITHROMAX 250 MG ORAL TABLET 2 po today, then 1 po q days 2-5 20 12/08/14 ZITHROMAX 250 MG ORAL TABLET 546783 AZITHROMYCIN Greer ctive AUGMENTIN 875-125 MG ORAL TABLET 1 po BID x 10 days 13/01/20 AUGMENTIN 875-125 MG ORAL TABLET 046252 AMOXICILLIN-POT CLAVULANATE Inactive ZITHROMAX Z-REYNA 250 MG ORAL TABLET 2 today, then 1 daily for 4 d ays ZITHROMAX Z-REYNA 250 MG ORAL TABLET 418658 AZITHROMYCIN Inactive ZITHROMAX 250 MG ORAL TABLET 2 po today, then 1 po q days 2-5 20 14/03/21 ZITHROMAX 250 MG ORAL TABLET 141147 AZITHROMYCIN Outing ctive ZITHROMAX Z-REYNA 250 MG ORAL TABLET 2 today, then 1 daily for 4 d ays ZITHROMAX Z-REYNA 250 MG ORAL TABLET 376919 AZITHROMYCIN Inactive CEFDINIR 300 MG ORAL CAPSULE 1 po BID x 10 days 06/21 CEFDINIR 300 MG ORAL CAPSULE 20020704 CEFDINIR Inactive ZITHROMAX 250 MG ORAL TABLET 2 po today, then 1 po q days 2-5 20 13/08/10 ZITHROMAX 250 MG ORAL TABLET 295197 AZITHROMYCIN Greer ctive LEVAQUIN 500 MG ORAL TABLET 1 tablet by mouth daily 20 13/09/24 LEVAQUIN 500 MG ORAL TABLET 19971102 LEVOFLOXACIN Inactive SINGULAIR 10 MG ORAL TABLET 1 po qday for allergies 20 14/01/12 SINGULAIR 10 MG ORAL TABLET 20010504 MONTELUKAST SODIUM Inactive AMOXICILLIN 500 MG ORAL CAPSULE 2 po BID x 10 days 201 09/29/08 AMOXICILLIN 500 MG ORAL CAPSULE 857142 AMOXICILLIN Inactive PREDNISONE 20 MG ORAL TABLET 2 tabs daily for 3 days, 1 tab daily for 3 days, 1/2 tab daily for 2 days PREDNISONE 20 MG ORAL T ABLET 771476 PREDNISONE Inactive ZITHROMAX Z-REYNA 250 MG ORAL TABLET 2 today, then 1 daily for 4 d ays ZITHROMAX Z-REYNA 250 MG ORAL TABLET 759141 AZITHROMYCIN Inactive PREDNISONE 20 MG ORAL TABLET 2 tabs daily for 3 days, 1 tab daily for 3 days, 1/2 tab daily for 2 days PREDNISONE 20 MG ORAL T ABLET 686067 PREDNISONE Inactive ZITHROMAX 250 MG ORAL TABLET 2 po today, then 1 po q days 2-5 14/09/04 ZITHROMAX 250 MG ORAL TABLET 654137 AZITHROMYCIN Greer ctive AMOXICILLIN 500 MG ORAL CAPSULE 1 cap by mouth three times a day AMOXICILLIN 500 MG ORAL CAPSULE 865736 AMOXICILLIN Inactive TERBINAFINE HCL 250 MG ORAL TABLET 1 qDay for nail fungus 7 TERBINAFINE HCL 250 MG ORAL TABLET 948897 TERBINAFINE HCL Inact nael AUGMENTIN 875-125 MG ORAL TABLET 1 po BID x 10 days 20 16/03/22 AUGMENTIN 875-125 MG ORAL TABLET 048350 AMOXICILLIN-POT CLAVULANATE Inactive Vital Signs Date Name [...] - Chem istry sodium, serum 132 mmol/L 973-770 0625/07/12 potassium, serum 2.7 mmol/L 3.5-5.2 chloride, serum 93 mmol/L 98-107 carbon dioxide, venous blood 30.8 mmol/L 21.0-32 .0 blood glucose 107 mg/dL 65-110 calcium, serum 9.3 mg/dL 8.5-10.1 urea nitrogen, blood 12 mg/dL 7-18 creatinine, serum 1.00 mg/dL 0.60-1.30 sodium, serum 142 mmol/L 158-472 0609/07/17 potassium, serum 4.2 mmol/L 3.5-5.2 chloride, serum 106 mmol/L 98-107 carbon dioxide, venous blood 29.9 mmol/L 21.0-32 .0 blood glucose 108 mg/dL 65-110 calcium, serum 9.1 mg/dL 8.5-10.1 urea nitrogen, blood 11 mg/dL 7-18 creatinine, serum 0.81 mg/dL 0.60-1.30 Lab Report: Rapid Strep - Lab Microbial identification kit, rapid strep method Negative Negative Encounters Code Encounter Date Provider Facility [id number] Level 3 Est. Patient 10:26:00 DESIGN TECH Italo KHAN [facility] CPT-86677 Level 3 Est. Patient 13:35:41 DESIGN TECH [place] rich MD [facility] CPT-37251 Level 3 Est. Patient 10:03:52 DESIGN TECH Carlton rich MD [facility] CPT-47768 Level 3 Est. Patient 12:17:50 CDT Hugo Restrepo MD [facility] CPT-09226 Level 3 Est. Patient 13:42:38 CDT Elise And chelly [facility] CPT-46398 Level 3 Est. Patient 13:23:51 CDT Diya cobian [facility] CPT-93813 Level 3 Est. Patient 14:22:19 DESIGN TECH Asrtidgreer Mariana cobian [facility] CPT-05420 Level 3 Est. Patient 10:11:46 CDT Carlton rich MD [facility] CPT-17231 Level 3 Est. Patient 17:29:43 CDT Elise And chelly [facility] CPT-29570 Level 3 Est. Patient 11:58:06 CDT Elise And chelly [facility] CPT-18948 Level 4 Est. Patient 14:36:51 CDT Carlton rich MD [facility]-87753 Level 3 Est. Patient 18:16:00 DESIGN TECH Blaine HERNANDEZ [facility] CPT-82345 Level 3 Est. Patient 09:45:49 DESIGN TECH Carlton rich MD [facility] CPT-02008 Level 3 Est. Patient 13:19:20 CDT Carlton rich MD [facility] CPT-96510 Level 3 Est. Patient 13:06:43 CDT Ridge tam DO [facility] CPT-25171 Level 3 Est. Patient 10:03:07 CDT Perez Mora MD [facility] CPT-96199 Level 3 Est. Patient 19:50:35 DESIGN TECH Carlton rich MD [facility] CPT-69118 Level 4 Est. Patient 18:05:01 DESIGN TECH Carlton rich MD [facility] CPT-45074 Level 3 Est. Patient 10:45:55 DESIGN TECH Hugo Restrepo MD [facility] CPT-67091 Level 3 Est. Patient 14:12:49 CDT Griffin HERNANDEZ [facility] CPT-41872 Level 3 Est. Patient 17:37:24 CDT Carlton rich MD [facility] CPT-21596 Level 3 Est. Patient 16:51:54 CDT Carlton rich MD [facility] CPT-87157 Level 3 Est. Patient 12:18:11 CDT Hugo Restrepo MD [facility] CPT-31956 Level 3 Est. Patient 11:30:25 CDT Marcy crisostomo MD PhD [facility] CPT-59182 Level 3 Est. Patient 12:00:47 DESIGN TECH Carlton rich MD [facility] CPT-40740 Level 3 Est. Patient 16:31:06 DESIGN TECH Carlton rich MD [facility] CPT-49748 Level 3 Est. Patient 16:23:24 DESIGN TECH Ridge tam DO [facility] CPT-84981 Level 3 Est. Patient 12:34:12 CDT Carlton rich MD [facility] CPT-27022 Level 2 Est. Patient 15:43:33 CDT Robi armstrong MD [facility] CPT-01392 Level 4 Est. Patient 14:04:44 CDT Carlton rich MD [facility] CPT-83415 Level 3 Est. Patient 05:47:59 CDT Ridge tam [facility] CPT-13002 Level 3 Est. Patient 13:12:53 DESIGN TECH Carlton rich MD [facility] CPT-48281 Level 3 Est. Patient 14:26:53 CDT Hugo Restrepo MD [facility] Procedures Code Procedure Name Date Entry Date Standard Desc ription CPT-J1040 Depo Medrol 80 mg (Methyl Prednisolone A cetate) 10:42:44 CDT CPT-J1100 Decadron 8mg (Dexamethasone) 10:42:44 CDT 2 CPT-J0696 Rocephin 1gm Inj Solr 14:32:13 CDT CPT-J1020 Depo Medrol 60 mg (Methyl Prednisolone A cetate) 14:32:13 CDT CPT-J1100 Decadron 6mg (Dexamethasone) 14:32:13 CDT 2 CPT-34499 Hip bilat min 2V w AP pelvis 13:16:20 CDT 2 CPT-97108 Pelvis only 13:07:33 CDT CPT-63066 Spec Collection and Handling Fee 11:25:12 C DT CPT-46681 Fluzone Quadrivalent Intramuscular Suspe nsion 0.5 ML 14:31:55 CDT CPT-40131 Abx/Therapy Injection 13:28:47 DESIGN TECH CPT-J2930 Solu Medrol 125 mg (Methyl Prednisolone Sodium Succinate) 12:00:47 DESIGN TECH CPT-05895 Venipuncture Draw Fee 11:33:31 CDT CPT-76139 EKG Trac and Interp 11:21:09 CDT CPT-21299 Chest 2V Frontal and Lat 11:21:09 CDT 12/15 CPT-06180 Venipuncture Draw Fee 08:02:34 CDT CPT-09444 Chest 2V Frontal and Lat 05:47:59 CDT 06/05
--- OUTSIDE RECORDS SUMMARY | 2019-10-08 10:17 | XMS REPORT | Clinical Summary ---
Author Author Admin, Juliana Martinez Organization [facility] Address Unknown Phone Unavailable Allergies, Adverse [...] sites Sinusitis 473.9 Active Diya De Guzman DRUG CLERK Unspecified sinusitis (chronic) Bronchitis-Acute 466.0 Active Carlton Hu MD Acute bronchitis URI - acute 465.9 Active Elise Whitmore DRUG CLERK Acute upper respiratory infections of unspecified site [...] then 1 po q days 2-5 AZITHROMYCIN 38188467551 No Longer Active Elise Whitmore APRN Acti ve XANAX 0.5 MG TABS one tablet by mouth daily prn anxiety ALPRAZOLAM 84593976477 Active Carlton Hu MD Active CYMBALTA 30 MG CPEP 1 cap by mouth daily for depression DULOXETINE HCL 07140103172 Active Carlton Hu MD Active CEFDINIR 300 MG CAPS 1 po BID x 10 days CEFDINI R 21582331010 No Longer Active Carlton Hu MD Active ZOCOR 40 MG TAB 1 tab by mouth daily SIMVASTATI N 15303727275 No Longer Active Carlton Hu MD Active CYCLOBENZAPRINE HCL 10 MG TABS 1 tablet by mouth BID prn had cherelle n CYCLOBENZAPRINE HCL 80167317953 No Longer Active Carlton Hu MD Active LEVOFLOXACIN 500 MG ORAL TABS 1 tab PO daily x 10 days LEVOFLOXACIN 61923066753 No Longer Active Carlton Hu MD Acti ve PREDNISONE 20 MG ORAL TABS 3 tab PO qd x 2d, 2 tab PO qd x 2d, 1 tab PO qd x 2d, 1/2 tab PO qd x 2d PREDNISONE 65252630961 No Longer Active Carlton Hu MD Active TUSSIONEX PENNKINETIC ER 10-8 MG/5ML ORAL LQCR 5 mL PO q 12 hrs PRN cough HYDROCOD POLST-CHLORPHEN POLST 49038450054 Active Elise Whitmore APRN Active FLUTICASONE PROPIONATE 50 MCG/ACT SUSP 1 to 2 sprays each no stril daily FLUTICASONE PROPIONATE 44711966844 No Longer Active T homas W Cloven PA Active CHERATUSSIN AC 100-10 MG/5ML SYRP 1 tsp by mouth every 4 hours as needed for cough GUAIFENESIN-CODEINE 53132199712 No Longer Activ e Blaine HERNANDEZ Active PROMETHAZINE-CODEINE 6.25-10 MG/5ML SYRP 1 tsp by mout h every 6 hours if needed for cough PROMETHAZINE-CODEINE 35143997304 No Long er Active Blaine HERNANDEZ Active CHERATUSSIN AC 100-10 MG/5ML SYRP 1 tsp by mouth every 4 hours as needed for cough GUAIFENESIN-CODEINE 73421440933 No Longer Activ e Blaine HERNANDEZ Active ZITHROMAX Z-REYNA 250 MG TABS 2 today, then 1 daily for 4 days 201 08/30/03 AZITHROMYCIN 41536176634 No Longer Active Columba Raida Act nael ZITHROMAX 250 MG TAB 2 po today, then 1 po q days 2-5 AZITHROMYCIN 62316340257 No Longer Active Carltno Hu MD Acti ve ZITHROMAX Z-REYNA 250 MG TABS 2 today, then 1 daily for 4 days 201 08/07/20 AZITHROMYCIN 42294178185 No Longer Active Columba Raida Act nael AUGMENTIN 875-125 MG TAB 1 po BID x 10 days AMOXICILLIN- POT CLAVULANATE 22189861833 No Longer Active Diya De Guzman APRN Active ZITHROMAX 250 MG TAB 2 po today, then 1 po q days 2-5 AZITHROMYCIN 71415351995 No Longer Active Carlton Hu MD Acti ve TRAMADOL HCL 50 MG TABS 1 po tid with ES Tylenol TRAMADOL HCL 91541712347 Active Carlton Hu MD Active PREMARIN 0.625 MG TABS TAKE 1 TAB BY MOUTH DAILY 07/25 ESTROGENS CONJUGATED 92412970056 No Longer Active Ridge Bess DO Active CYMBALTA 30 MG CPEP 1 cap by mouth daily DULOXE SNEHA HCL 74840487526 No Longer Active Ridge Bess DO Active AMOXICILLIN 500 MG CAP 1 tab by mouth 3 times daily x 10 days 20 14/04/28 AMOXICILLIN 53472370908 No Longer Active Carlton Hu MD Active AMOXICILLIN 500 MG CAP 1 tab by mouth 3 times daily x 10 days 20 13/03/08 AMOXICILLIN 36355684322 No Longer Active Carlton Hu MD Active PROMETHAZINE-CODEINE 6.25-10 MG/5ML SYRP 1 tsp by mouth ever y 8 hours prn cough PROMETHAZINE-CODEINE 12150190926 No Longer Active Robert Hu MD Active MEDROL (REYNA) 4 MG TABS 6 pills x 1 day, then 5 pill s x 1 day then 4 pills x 1 day, then 3 pills x 1 day, then 2 pills x 1 day, then 1 pill x 1 day, then stop METHYLPREDNISOLONE 66053285631 No Longer Active Parris Mora MD Active AZITHROMYCIN 250 MG TABS 2 po qd x 1 day, then 1 po qd x 4 days AZITHROMYCIN 82005226350 No Longer Active Perez Mora MD Active SYMBICORT 160-4.5 MCG/ACT AERO 2 puffs bid with rinse after 2011 BUDESONIDE-FORMOTEROL FUMARATE 96301567558 No Longer Active Perez Mora MD Active LYRICA 75 MG CAPS TAKE 1 CAPSULE BY MOUTH TWICE DAILY 2013 PREGABALIN 93393450431 No Longer Active Carlton Hu MD Active LYRICA 100 MG CAPS Take 1 tab po BID for fibromyalgia PREGABALIN 97480396656 Active Elise Whitmore APRN Active TOPAMAX 25 MG TABS 1 qHS x 1 week, then 1 BID x 1 week, then 1 qAM and 2 qHS x 1 week, then 2 BID (migraine prevention) TOPIRAMAT E 25095860042 No Longer Active Jerica FUENTES Active TOPAMAX 50 MG TABS take 1 tab po BID for migraines. 12/07/10 TOPIRAMATE 17880596713 No Longer Active Jerica Osei RMA Ac tive TOPAMAX 100 MG TABS Take 1 tablet po bid TOPIRAMATE 4999 2019919 Active Carlton Hu MD Active TRIAMCINOLONE ACETONIDE 0.1 % CREA apply three times daily prn r beatrice TRIAMCINOLONE ACETONIDE 55074023375 No Longer Active Carlton Hu MD Active PAXIL 40 MG TAB take 1 tab po qday for depression PAROXETINE HCL 47594903554 Active Elise Whitmore DRUG CLERK Active CHERATUSSIN AC 100-10 MG/5ML SYRP 5ml po q6hr PRN Cough GUAIFENESIN-CODEINE 41218839789 No Longer Active Carlton Hu MD Active MEDROL (REYNA) 4 MG TABS 6 tabs on day 1, 5 tabs on d ay 2, 4 tabs on day 3, 3 tabs on day 4, 2 tabs on day 5, 1 tab on day 6 METHYLPREDNISOLONE 85475071215 No Longer Active Perez Mora MD Active AZITHROMYCIN 250 MG TABS 2 po qd x 1 day, then 1 po qd x 4 days AZITHROMYCIN 88469663000 No Longer Active Perez Mora MD Active PROPRANOLOL HCL 60 MG TABS 1 PO Q D PROPRANOL OL HCL 67744224049 No Longer Active Perez Mora MD Active CHERATUSSIN AC 100-10 MG/5ML SYRP take one tsp po Q 6hours prn c ough GUAIFENESIN-CODEINE 50193256191 No Longer Active Perez Means Active AUGMENTIN 875-125 MG TAB 1 tab by mouth twice daily with food 20 12/03/31 AMOXICILLIN-POT CLAVULANATE 53439632206 No Longer Active Chanel Mora MD Active CHERATUSSIN AC 100-10 MG/5ML SYRP 1 tsp by mouth every 4 hours as needed for cough GUAIFENESIN-CODEINE 38164766673 No Longer Activ lidia Restrepo MD Active ACETAMINOPHEN-CODEINE #3 300-30 MG TABS 1 PO Q 4-6 HRS PRN PAIN ACETAMINOPHEN-CODEINE 15257483095 No Longer Active Hugo Restrepo MD Active LEVAQUIN 500 MG TABS take one po QD LEVOFLOXACI N 11313516132 No Longer Active Griffin HERNANDEZ Active PREDNISONE 20 MG TAB Take 3 tabs daily for 3 days , 2 tabs daily for 3 days, 1 tab daily for 3 days, 1/2 tab daily for 3 days P REDNISONE 19732202883 No Longer Active Carlton Hu MD Active AVELOX 400 MG TABS 1 tab by mouth daily MOXIFLO XACIN HCL 86571860055 No Longer Active Carlton Hu MD Active CHERATUSSIN AC 100-10 MG/5ML SYRP 1 tsp by mouth every 4 hours as needed for cough GUAIFENESIN-CODEINE 09262563185 No Longer Activ e Hugo Restrepo MD Active AVELOX 400 MG TABS 1 tab by mouth daily MOXIFLO XACIN HCL 04793925456 No Longer Active Marcy De La Rosa MD PhD Active TERBINAFINE HCL 250 MG TABS 1 qDay TERBINAF INE HCL 90488065201 No Longer Active Marcy De La Rosa MD PhD Active CHERATUSSIN AC 100-10 MG/5ML SYRP 1 tsp by mouth every 4 hours as needed for cough GUAIFENESIN-CODEINE 40553740878 No Longer Activ e Marcy De La Rosa MD PhD Active AVELOX 400 MG TABS 1 tab by mouth daily MOXIFLO XACIN HCL 46303781917 No Longer Active Marcy De La Rosa MD PhD Active HYDROCODONE-ACETAMINOPHEN 5-325 MG TABS 1 po q 6hr PRN cough 201 05/09/16 HYDROCODONE-ACETAMINOPHEN 80412261578 No Longer Active Marcy De La Rosa MD PhD Active PREDNISONE 20 MG TAB 2 tabs daily for 3 days, 1 t ab daily for 3 days, 1/2 tab daily for 2 days PREDNISONE 54338722125 No Longer Active Carlton Hu MD Active CEFDINIR 300 MG CAPS by mouth twice a day CEFDI ODILIA 27722311398 No Longer Active Carlton Hu MD Active HYDROCHLOROTHIAZIDE 25 MG TABS 1 TAB PO DAILY H YDROCHLOROTHIAZIDE 61241004874 Active Carlton Hu MD Active ACETAMINOPHEN-CODEINE #3 300-30 MG TABS 1 tablet po q 4-6hrs prn pain ACETAMINOPHEN-CODEINE 16386539978 No Longer Active Ridge Bess DO Active ZITHROMAX 250 MG TAB 2 po today, then 1 po q days 2-5 AZITHROMYCIN 76094260565 No Longer Active Carlton Hu MD Acti ve CHERATUSSIN AC 100-10 MG/5ML SYRP take 1 tsp po q4-6 hours prn c ough GUAIFENESIN-CODEINE 67992347188 No Longer Active Carlton Hu MD Active ACETAMINOPHEN-CODEINE #3 300-30 MG TABS 1 PO Q 4-6 HR PRN PAIN 2 ACETAMINOPHEN-CODEINE 42516608451 No Longer Active Carlton rich MD Active LORTAB 7.5-500 MG/15ML ELIX 7.5 ml po q 4 hour prn cough HYDROCODONE-ACETAMINOPHEN 99774148058 No Longer Active Carlton Hu MD Active PREDNISONE 20 MG TAB 1 po bid 3 days, then 1 po q day 3 days 201 05/03/07 PREDNISONE 69172822178 No Longer Active Carlton Hu MD Active ELMIRON 100 MG CAPS 2 tablets in the am and 1 tablet at hs PENTOSAN POLYSULFATE SODIUM 98003127202 Active Carlton Hu MD Ac tive CEFDINIR 300 MG CAPS by mouth twice a day CEFDI ODILIA 10584244852 No Longer Active Carlton Hu MD Active CEFDINIR 300 MG CAPS by mouth twice a day CEFDI ODILIA 49870632458 No Longer Active Carlton Hu MD Active CEFDINIR 300 MG CAPS by mouth twice a day CEFDI ODILIA 96814489291 No Longer Active Carlton Hu MD Active TESSALON PERLES 100 MG CAP 1 tablet by mouth 3 times daily a s needed for cough BENZONATATE 74345089821 No Longer Active Carlton bustamante MD Active CEFDINIR 300 MG CAPS by mouth twice a day CEFDI ODILIA 79690877777 No Longer Active Carlton Hu MD Active ZITHROMAX Z-REYNA 250 MG TABS 2 today, then 1 daily for 4 days 201 04/09/17 AZITHROMYCIN 30379702707 No Longer Active Hugo Restrepo MD Active TESSALON PERLES 100 MG CAP 1 tablet by mouth 3 times daily a s needed for cough TESSALON PERLES 100 MG CAP 571915 BENZONATATE I nactive PREDNISONE 20 MG TAB 1 po bid 3 days, then 1 po q day 3 days 201 05/03/07 PREDNISONE 20 MG TAB 425670 PREDNISONE Inactive LORTAB 7.5-500 MG/15ML ELIX 7.5 ml po q 4 hour prn cough LORTAB 7.5-500 MG/15ML ELIX HYDROCODONE-ACETAMINOPHEN Inacti ve ACETAMINOPHEN-CODEINE #3 300-30 MG TABS 1 PO Q 4-6 HR PRN PAIN 2 ACETAMINOPHEN-CODEINE #3 300-30 MG TABS 878366 ACETAMIN OPHEN-CODEINE Inactive CHERATUSSIN AC 100-10 MG/5ML SYRP take 1 tsp po q4-6 hours prn c ough CHERATUSSIN AC 100-10 MG/5ML SYRP 505390 GUAIFENESIN-CO DEINE Inactive ACETAMINOPHEN-CODEINE #3 300-30 MG TABS 1 tablet po q 4-6hrs prn pain ACETAMINOPHEN-CODEINE #3 300-30 MG TABS 972473 ACETAMIN OPHEN-CODEINE Inactive HYDROCODONE-ACETAMINOPHEN 5-325 MG TABS 1 po q 6hr PRN cough 201 05/09/16 HYDROCODONE-ACETAMINOPHEN 5-325 MG TABS 867797 HYDROCODONE-ACETAMINOPHEN Inactive AVELOX 400 MG TABS 1 tab by mouth daily A VELOX 400 MG TABS 296629 MOXIFLOXACIN HCL Inactive CHERATUSSIN AC 100-10 MG/5ML SYRP 1 tsp by mouth every 4 hours as needed for cough CHERATUSSIN AC 100-10 MG/5ML SYRP 006071 GUAIFENESIN-CODEINE Inactive TERBINAFINE HCL 250 MG TABS 1 qDay TERBINAFINE HCL 250 MG TABS 208709 TERBINAFINE HCL Inactive CHERATUSSIN AC 100-10 MG/5ML SYRP 1 tsp by mouth every 4 hours as needed for cough CHERATUSSIN AC 100-10 MG/5ML SYRP 787565 GUAIFENESIN-CODEINE Inactive ACETAMINOPHEN-CODEINE #3 300-30 MG TABS 1 PO Q 4-6 HRS PRN PAIN ACETAMINOPHEN-CODEINE #3 300-30 MG TABS 773031 ACETAMINOPHEN-CODEIN E Inactive CHERATUSSIN AC 100-10 MG/5ML SYRP 1 tsp by mouth every 4 hours as needed for cough CHERATUSSIN AC 100-10 MG/5ML SYRP 031325 GUAIFENESIN-CODEINE Inactive AUGMENTIN 875-125 MG TAB 1 tab by mouth twice daily with food 20 12/03/31 AUGMENTIN 875-125 MG TAB 834279 AMOXICILLIN-POT CLAVULA EFE Inactive CHERATUSSIN AC 100-10 MG/5ML SYRP take one tsp po Q 6hours prn c ough CHERATUSSIN AC 100-10 MG/5ML SYRP 293348 GUAIFENESIN-CO DEINE Inactive PROPRANOLOL HCL 60 MG TABS 1 PO Q D P ROPRANOLOL HCL 60 MG TABS 910455 PROPRANOLOL HCL Inactive TOPAMAX 50 MG TABS take 1 tab po BID for migraines. 12/07/10 TOPAMAX 50 MG TABS 128342 TOPIRAMATE Inactive TOPAMAX 25 MG TABS 1 qHS x 1 week, then 1 BID x 1 week, then 1 qAM and 2 qHS x 1 week, then 2 BID (migraine prevention) TOPAMAX 2 5 MG TABS 183432 TOPIRAMATE Inactive LYRICA 75 MG CAPS TAKE 1 CAPSULE BY MOUTH TWICE DAILY LYRICA 75 MG CAPS PREGABALIN Inactive SYMBICORT 160-4.5 MCG/ACT AERO 2 puffs bid with rinse after 2011 SYMBICORT 160-4.5 MCG/ACT AERO BUDESONIDE-FORMOT SÁNCHEZ FUMARATE Inactive PROMETHAZINE-CODEINE 6.25-10 MG/5ML SYRP 1 tsp by mouth ever y 8 hours prn cough PROMETHAZINE-CODEINE 6.25-10 MG/5ML SYRP 366052 PROMETHAZINE-CODEINE Inactive CYMBALTA 30 MG CPEP 1 cap by mouth daily CYMBALTA 30 MG CPEP 269848 DULOXETINE HCL Inactive PREMARIN 0.625 MG TABS TAKE 1 TAB BY MOUTH DAILY 07/25 PREMARIN 0.625 MG TABS ESTROGENS CONJUGATED Inactive CHERATUSSIN AC 100-10 MG/5ML SYRP 1 tsp by mouth every 4 hours as needed for cough CHERATUSSIN AC 100-10 MG/5ML SYRP 422155 GUAIFENESIN-CODEINE Inactive PROMETHAZINE-CODEINE 6.25-10 MG/5ML SYRP 1 tsp by mout h every 6 hours if needed for cough PROMETHAZINE-CODEINE 6.25-10 MG/5ML SYRP 739860 PROMETHAZINE-CODEINE Inactive CHERATUSSIN AC 100-10 MG/5ML SYRP 1 tsp by mouth every 4 hours as needed for cough CHERATUSSIN AC 100-10 MG/5ML SYRP 150001 GUAIFENESIN-CODEINE Inactive FLUTICASONE PROPIONATE 50 MCG/ACT SUSP 1 to 2 sprays each no stril daily FLUTICASONE PROPIONATE 50 MCG/ACT SUSP 213101 FLUTICASONE PROPIONATE Inactive PREDNISONE 20 MG ORAL TABS 3 tab PO qd x 2d, 2 tab PO qd x 2d, 1 tab PO qd x 2d, 1/2 tab PO qd x 2d PREDNISONE 20 MG ORAL TABS 944194 PREDNISONE Inactive LEVOFLOXACIN 500 MG ORAL TABS 1 tab PO daily x 10 days LEVOFLOXACIN 500 MG ORAL TABS 193692 LEVOFLOXACIN Inactive CYCLOBENZAPRINE HCL 10 MG TABS 1 tablet by mouth BID prn had cherelle n CYCLOBENZAPRINE HCL 10 MG TABS 490743 CYCLOBENZAPRINE H CL Inactive ZOCOR 40 MG TAB 1 tab by mouth daily ZOCOR 40 M G TAB 096624 SIMVASTATIN Inactive ZITHROMAX Z-REYNA 250 MG TABS 2 today, then 1 daily for 4 days 201 04/09/17 ZITHROMAX Z-REYNA 250 MG TABS 2088163 AZITHROMYCIN Inac tive CEFDINIR 300 MG CAPS [...] q days 2-5 ZITHROMAX 250 MG TAB 8498088 AZITHROMYCIN Inactive CEFDINIR 300 MG CAPS by mouth twice a day CEFDINIR 300 MG CAPS 312207 CEFDINIR Inactive PREDNISONE 20 MG TAB 2 tabs daily for 3 days, 1 t ab daily for 3 days, 1/2 tab daily for 2 days PREDNISONE 20 MG TAB 174185 PREDNISON E Inactive AVELOX 400 MG TABS 1 tab by mouth daily A VELOX 400 MG TABS 218296 MOXIFLOXACIN HCL Inactive AVELOX 400 MG TABS 1 tab by mouth daily A VELOX 400 MG TABS 029243 MOXIFLOXACIN HCL Inactive PREDNISONE 20 MG TAB Take 3 tabs daily for 3 days , 2 tabs daily for 3 days, 1 tab daily for 3 days, 1/2 tab daily for 3 days PREDNISONE 20 MG TAB 004611 PREDNISONE Inactive LEVAQUIN 500 MG TABS take one po QD LEVAQUIN 50 0 MG TABS 931727 LEVOFLOXACIN Inactive AZITHROMYCIN 250 MG TABS 2 po qd x 1 day, then 1 po qd x 4 days AZITHROMYCIN 250 MG TABS 3191059 AZITHROMYCIN Inactiv e MEDROL (REYNA) 4 MG TABS 6 tabs on day 1, 5 tabs on d ay 2, 4 tabs on day 3, 3 tabs on day 4, 2 tabs on day 5, 1 tab on day 6 MEDROL (REYNA) 4 MG TABS 997968 METHYLPREDNISOLONE Inactive CHERATUSSIN AC 100-10 MG/5ML SYRP 5ml po q6hr PRN Cough CHERATUSSIN AC 100-10 MG/5ML SYRP 176010 GUAIFENESIN-CODEINE Inacti ve TRIAMCINOLONE ACETONIDE 0.1 % CREA apply three times daily prn r beatrice TRIAMCINOLONE ACETONIDE 0.1 % CREA 6603627 TRIAMCINOLONE ACETONIDE Inactive AZITHROMYCIN 250 MG TABS 2 po qd x 1 day, then 1 po qd x 4 days AZITHROMYCIN 250 MG TABS 7778388 AZITHROMYCIN Inactiv e MEDROL (REYNA) 4 MG TABS 6 pills x 1 day, then 5 pill s x 1 day then 4 pills x 1 day, then 3 pills x 1 day, then 2 pills x 1 day, then 1 pill x 1 day, then stop MEDROL (REYNA) 4 MG TABS 277830 METHYLPREDNISOLONE Inactive AMOXICILLIN 500 MG CAP 1 tab by mouth 3 times daily x 10 days 20 13/03/08 AMOXICILLIN 500 MG CAP 506048 AMOXICILLIN Inactive AMOXICILLIN 500 MG CAP 1 tab by mouth 3 times daily x 10 days 20 14/04/28 AMOXICILLIN 500 MG CAP 771060 AMOXICILLIN Inactive ZITHROMAX 250 MG TAB 2 po today, then 1 po q days 2-5 ZITHROMAX 250 MG TAB 2970134 AZITHROMYCIN Inactive AUGMENTIN 875-125 MG TAB 1 po BID x 10 days AUGMENTIN 875- 125 MG TAB 651415 AMOXICILLIN-POT CLAVULANATE Inactive ZITHROMAX Z-REYNA 250 MG TABS 2 today, then 1 daily for 4 days 201 08/07/20 ZITHROMAX Z-REYNA 250 MG TABS 9418764 AZITHROMYCIN Inac tive ZITHROMAX 250 MG TAB 2 po today, then 1 po q days 2-5 ZITHROMAX 250 MG TAB 0739678 AZITHROMYCIN Inactive ZITHROMAX Z-REYNA 250 MG TABS 2 today, then 1 daily for 4 days 201 08/30/03 ZITHROMAX Z-REYNA 250 MG TABS 4138819 AZITHROMYCIN Inac tive CEFDINIR 300 MG CAPS 1 po BID x 10 days C EFDINIR 300 MG CAPS 146753 CEFDINIR Inactive ZITHROMAX 250 MG TAB 2 po today, then 1 po q days 2-5 ZITHROMAX 250 MG TAB 6624412 AZITHROMYCIN Inactive Vital Signs Date Name Value [...] Measured Encounters Code Encounter Date Provider Facility CPT-38882 Level 3 Est. Patient 11:58:06 CDT Italo KHAN [facility] CPT-02489 Level 4 Est. Patient 14:36:51 CDT Carlton rich MD [facility] CPT-05304 Level 3 Est. Patient 18:16:00 [employer] DRIVER Blaine HERNANDEZ [facility] CPT-66219 Level 3 Est. Patient 09:45:49 [employer] DRIVER Carlton rich MD [facility] CPT-20375 Level 3 Est. Patient 13:19:20 CDT Carlton rich MD [facility]-66756 Level 3 Est. Patient 13:06:43 CDT Ridge tam DO [facility] CPT-12038 Level 3 Est. Patient 10:03:07 CDT Perez Mora MD [facility]-01450 Level 3 Est. Patient 19:50:35 [employer] DRIVER Carlton rich MD [facility]-73361 Level 4 Est. Patient 18:05:01 [employer] DRIVER Carlton rich MD [facility] CPT-31795 Level 3 Est. Patient 10:45:55 [employer] DRIVER Hugo Restrepo MD [facility]-41368 Level 3 Est. Patient 14:12:49 CDT Griffin HERNANDEZ [facility] CPT-39159 Level 3 Est. Patient 17:37:24 CDT Carlton rich MD [facility]-39178 Level 3 Est. Patient 16:51:54 CDT Carlton rich MD [facility]-11190 Level 3 Est. Patient 12:18:11 CDT Hugo Restrepo MD [facility] CPT-37358 Level 3 Est. Patient 11:30:25 CDT Marcy crisostomo MD, PhD [facility]-76754 Level 3 Est. Patient 12:00:47 [employer] DRIVER Carlton rich MD [facility]-29682 Level 3 Est. Patient 16:31:06 [employer] DRIVER Carlton rich MD [facility]-52937 Level 3 Est. Patient 16:23:24 [employer] R[address] DRIVER Ridge tam [facility] CPT-36134 Level 3 Est. Patient 12:34:12 CDT Carlton rich MD [facility] CPT-42328 Level 2 Est. Patient 15:43:33 CDT Robi armstrong MD [facility] CPT-69963 Level 4 Est. Patient 14:04:44 CDT Carlton rich MD [facility] CPT-58828 Level 3 Est. Patient 05:47:59 CDT Ridge tam [facility] CPT-91166 Level 3 Est. Patient 13:12:53 [employer] DRIVER Carlton rich MD [facility] CPT-21538 Level 3 Est. Patient 14:26:53 CDT Hugo Restrepo MD [facility] Procedures Code Procedure Name Date Entry Date Standard Desc ription CPT-47843 Hip bilat min 2V w AP pelvis 13:16:20 CDT 2 CPT-16943 Pelvis only 13:07:33 CDT CPT-43748 Spec Collection and Handling Fee 11:25:12 C DT CPT-62036 Fluzone Quadrivalent Intramuscular Suspe nsion 0.5 ML 14:31:55 CDT CPT-15725 Abx/Therapy Injection 13:28:47 [employer] DRIVER CPT-J2930 Solu Medrol 125 mg (Methyl Prednisolone Sodium Succinate) 12:00:47 [employer] DRIVER CPT-61592 Venipuncture Draw Fee 11:33:31 CDT CPT-69053 EKG Trac and Interp 11:21:09 CDT CPT-69525 Chest 2V Frontal and Lat 11:21:09 CDT 12/15 CPT-00551 Venipuncture Draw Fee 08:02:34 CDT CPT-17590 Chest 2V Frontal and Lat 05:47:59 CDT 06/05
--- OUTSIDE RECORDS SUMMARY | 2019-10-08 10:17 | XMS REPORT | Clinical Summary ---
Author Author Caitlin, Juliana Martinez Organization [facility] Address Unknown Phone Unavailable Allergies, Adverse Reactions, [...] PhD Pneumonia, organism unspecified SINUSITIS 473.9 Resolved Macry De La Rosa MD PhD Unspecified sinusitis [...] sites Sinusitis 473.9 Active Diya De Guzman [employer] Unspecified sinusitis (chronic) Bronchitis-Acute 466.0 Active Carlton [...] tablet by mouth daily prn anxiety ALPRAZOLAM 21121822723 Active Carlton Hu MD Active CYMBALTA 30 MG CPEP 1 cap by mouth daily for depression DULOXETINE HCL 22709395985 Active Carlton Hu MD Active CEFDINIR 300 MG CAPS 1 po BID x 10 days CEFDINI R 17982740946 No Longer Active Carlton Hu MD Active ZOCOR 40 MG TAB 1 tab by mouth daily SIMVASTATI N 40872442271 No Longer Active Carlton Hu MD Active CYCLOBENZAPRINE HCL 10 MG TABS 1 tablet by mouth BID prn had cherelle n CYCLOBENZAPRINE HCL 86857353465 No Longer Active Carlton Hu MD Active LEVOFLOXACIN 500 MG ORAL TABS 1 tab PO daily x 10 days LEVOFLOXACIN 60040191751 No Longer Active Carlton Hu MD Acti ve PREDNISONE 20 MG ORAL TABS 3 tab PO qd x 2d, 2 tab PO qd x 2d, 1 tab PO qd x 2d, 1/2 tab PO qd x 2d PREDNISONE 55602927427 No Longer Active Carlton Hu MD Active TUSSIONEX PENNKINETIC ER 10-8 MG/5ML ORAL LQCR 5 mL PO q 12 hrs PRN cough HYDROCOD POLST-CHLORPHEN POLST 27015471107 Active Carlton Hu MD Active FLUTICASONE PROPIONATE 50 MCG/ACT SUSP 1 to 2 sprays each no stril daily FLUTICASONE PROPIONATE 15590945261 No Longer Active T jaz HERNANDEZ Active CHERATUSSIN AC 100-10 MG/5ML SYRP 1 tsp by mouth every 4 hours as needed for cough GUAIFENESIN-CODEINE 92272016974 No Longer Activ e Blaine HERNANDEZ Active PROMETHAZINE-CODEINE 6.25-10 MG/5ML SYRP 1 tsp by mout h every 6 hours if needed for cough PROMETHAZINE-CODEINE 66099977819 No Long er Active Blaine HERNANDEZ Active CHERATUSSIN AC 100-10 MG/5ML SYRP 1 tsp by mouth every 4 hours as needed for cough GUAIFENESIN-CODEINE 06498216165 No Longer Activ Jorge Luis HERNANDEZ Active ZITHROMAX Z-REYNA 250 MG TABS 2 today, then 1 daily for 4 days 201 08/30/03 AZITHROMYCIN 13676852355 No Longer Active Columba Raida Act nael ZITHROMAX 250 MG TAB 2 po today, then 1 po q days 2-5 AZITHROMYCIN 36477112256 No Longer Active Carlton Hu MD Acti ve ZITHROMAX Z-REYNA 250 MG TABS 2 today, then 1 daily for 4 days 201 08/07/20 AZITHROMYCIN 66188568609 No Longer Active Columba Raida Act nael AUGMENTIN 875-125 MG TAB 1 po BID x 10 days AMOXICILLIN- POT CLAVULANATE 86256408926 No Longer Active Diya De Guzman APRN Active ZITHROMAX 250 MG TAB 2 po today, then 1 po q days 2-5 AZITHROMYCIN 76787722491 No Longer Active Carlton Hu MD Acti ve TRAMADOL HCL 50 MG TABS 1 po tid with ES Tylenol TRAMADOL HCL 58553522547 Active Carlton Hu MD Active PREMARIN 0.625 MG TABS TAKE 1 TAB BY MOUTH DAILY 07/25 ESTROGENS CONJUGATED 25843023637 No Longer Active Ridge Bess DO Active CYMBALTA 30 MG CPEP 1 cap by mouth daily DULOXE SNEHA HCL 96002182332 No Longer Active Ridge Bess DO Active AMOXICILLIN 500 MG CAP 1 tab by mouth 3 times daily x 10 days 20 14/04/28 AMOXICILLIN 72321272300 No Longer Active Carlton Hu MD Active AMOXICILLIN 500 MG CAP 1 tab by mouth 3 times daily x 10 days 20 13/03/08 AMOXICILLIN 48074400567 No Longer Active Carlton Hu MD Active PROMETHAZINE-CODEINE 6.25-10 MG/5ML SYRP 1 tsp by mouth ever y 8 hours prn cough PROMETHAZINE-CODEINE 13996607905 No Longer Active Robert Hu MD Active MEDROL (REYNA) 4 MG TABS 6 pills x 1 day, then 5 pill s x 1 day then 4 pills x 1 day, then 3 pills x 1 day, then 2 pills x 1 day, then 1 pill x 1 day, then stop METHYLPREDNISOLONE 69203560782 No Longer Active Parris Mora MD Active AZITHROMYCIN 250 MG TABS 2 po qd x 1 day, then 1 po qd x 4 days AZITHROMYCIN 21292287207 No Longer Active Perez Mora MD Active SYMBICORT 160-4.5 MCG/ACT AERO 2 puffs bid with rinse after 2011 BUDESONIDE-FORMOTEROL FUMARATE 01802075509 No Longer Active Perez Mora MD Active LYRICA 75 MG CAPS TAKE 1 CAPSULE BY MOUTH TWICE DAILY 2013 PREGABALIN 86604523034 No Longer Active Carlton Hu MD Active LYRICA 100 MG CAPS Take 1 tab po BID for fibromyalgia PREGABALIN 85014803224 Active Elise Whitmore APRN Active TOPAMAX 25 MG TABS 1 qHS x 1 week, then 1 BID x 1 week, then 1 qAM and 2 qHS x 1 week, then 2 BID (migraine prevention) TOPIRAMAT E 48958038229 No Longer Active Jerica Goema RMA Active TOPAMAX 50 MG TABS take 1 tab po BID for migraines. 12/07/10 TOPIRAMATE 75090755346 No Longer Active Jerica Goeringer RMA Ac tive TOPAMAX 100 MG TABS Take 1 tablet po bid TOPIRAMATE 4999 2263636 Active Carlton Hu MD Active TRIAMCINOLONE ACETONIDE 0.1 % CREA apply three times daily prn r beatrice TRIAMCINOLONE ACETONIDE 09757153165 No Longer Active Carlton Hu MD Active PAXIL 40 MG TAB take 1 tab po qday for depression PAROXETINE HCL 75924354767 Active Elise Whitmore APRN Active CHERATUSSIN AC 100-10 MG/5ML SYRP 5ml po q6hr PRN Cough GUAIFENESIN-CODEINE 83219016188 No Longer Active Carlton Hu MD Active MEDROL (REYNA) 4 MG TABS 6 tabs on day 1, 5 tabs on d ay 2, 4 tabs on day 3, 3 tabs on day 4, 2 tabs on day 5, 1 tab on day 6 METHYLPREDNISOLONE 72196387106 No Longer Active Perez Mora MD Active AZITHROMYCIN 250 MG TABS 2 po qd x 1 day, then 1 po qd x 4 days AZITHROMYCIN 04265398753 No Longer Active Perez Mora MD Active PROPRANOLOL HCL 60 MG TABS 1 PO Q D PROPRANOL OL HCL 93958443359 No Longer Active Perez Mora MD Active CHERATUSSIN AC 100-10 MG/5ML SYRP take one tsp po Q 6hours prn c ough GUAIFENESIN-CODEINE 48744240037 No Longer Active Perez Means Active AUGMENTIN 875-125 MG TAB 1 tab by mouth twice daily with food 20 12/03/31 AMOXICILLIN-POT CLAVULANATE 88918561823 No Longer Active Chanel Mora MD Active CHERATUSSIN AC 100-10 MG/5ML SYRP 1 tsp by mouth every 4 hours as needed for cough GUAIFENESIN-CODEINE 47806162822 No Longer Activ e Hugo Restrepo MD Active ACETAMINOPHEN-CODEINE #3 300-30 MG TABS 1 PO Q 4-6 HRS PRN PAIN ACETAMINOPHEN-CODEINE 59498408146 No Longer Active Hugo Restrepo MD Active LEVAQUIN 500 MG TABS take one po QD LEVOFLOXACI N 10700457016 No Longer Active Griffin HERNANDEZ Active PREDNISONE 20 MG TAB Take 3 tabs daily for 3 days , 2 tabs daily for 3 days, 1 tab daily for 3 days, 1/2 tab daily for 3 days P REDNISONE 32665942900 No Longer Active Carlton Hu MD Active AVELOX 400 MG TABS 1 tab by mouth daily MOXIFLO XACIN HCL 97886660261 No Longer Active Carlton Hu MD Active CHERATUSSIN AC 100-10 MG/5ML SYRP 1 tsp by mouth every 4 hours as needed for cough GUAIFENESIN-CODEINE 56288500720 No Longer Activ e Hugo Restrepo MD Active AVELOX 400 MG TABS 1 tab by mouth daily MOXIFLO XACIN HCL 25602050099 No Longer Active Marcy De La Rosa MD PhD Active TERBINAFINE HCL 250 MG TABS 1 qDay TERBINAF INE HCL 01829019714 No Longer Active Marcy De La Rosa MD PhD Active CHERATUSSIN AC 100-10 MG/5ML SYRP 1 tsp by mouth every 4 hours as needed for cough GUAIFENESIN-CODEINE 94037647637 No Longer Activ e Marcy De La Rosa MD PhD Active AVELOX 400 MG TABS 1 tab by mouth daily MOXIFLO XACIN HCL 70485707738 No Longer Active Marcy De La Rosa MD PhD Active HYDROCODONE-ACETAMINOPHEN 5-325 MG TABS 1 po q 6hr PRN cough 201 05/09/16 HYDROCODONE-ACETAMINOPHEN 29991640191 No Longer Active Marcy De La Rosa MD PhD Active PREDNISONE 20 MG TAB 2 tabs daily for 3 days, 1 t ab daily for 3 days, 1/2 tab daily for 2 days PREDNISONE 87794747841 No Longer Active Carlton Hu MD Active CEFDINIR 300 MG CAPS by mouth twice a day CEFDI ODILIA 18861977887 No Longer Active Carlton Hu MD Active HYDROCHLOROTHIAZIDE 25 MG TABS 1 TAB PO DAILY H YDROCHLOROTHIAZIDE 26378695081 Active Carlton Hu MD Active ACETAMINOPHEN-CODEINE #3 300-30 MG TABS 1 tablet po q 4-6hrs prn pain ACETAMINOPHEN-CODEINE 62997831988 No Longer Active Ridge Bess DO Active ZITHROMAX 250 MG TAB 2 po today, then 1 po q days 2-5 AZITHROMYCIN 68677253999 No Longer Active Carlton Hu MD Acti ve CHERATUSSIN AC 100-10 MG/5ML SYRP take 1 tsp po q4-6 hours prn c ough GUAIFENESIN-CODEINE 23864709345 No Longer Active Carlton Hu MD Active ACETAMINOPHEN-CODEINE #3 300-30 MG TABS 1 PO Q 4-6 HR PRN PAIN 2 ACETAMINOPHEN-CODEINE 55809402832 No Longer Active Carlton rich MD Active LORTAB 7.5-500 MG/15ML ELIX 7.5 ml po q 4 hour prn cough HYDROCODONE-ACETAMINOPHEN 67316804248 No Longer Active Carlton Hu MD Active PREDNISONE 20 MG TAB 1 po bid 3 days, then 1 po q day 3 days 201 05/03/07 PREDNISONE 88699085102 No Longer Active Carlton Hu MD Active ELMIRON 100 MG CAPS 2 tablets in the am and 1 tablet at hs PENTOSAN POLYSULFATE SODIUM 75975598648 Active Carlton Hu MD Ac tive CEFDINIR 300 MG CAPS by mouth twice a day CEFDI ODILIA 21221933286 No Longer Active Carlton Hu MD Active CEFDINIR 300 MG CAPS by mouth twice a day CEFDI ODILIA 09089294224 No Longer Active Carlton Hu MD Active CEFDINIR 300 MG CAPS by mouth twice a day CEFDI ODILIA 99029515746 No Longer Active Carlton Hu MD Active TESSALON PERLES 100 MG CAP 1 tablet by mouth 3 times daily a s needed for cough BENZONATATE 66445132513 No Longer Active Carlton bustamante MD Active CEFDINIR 300 MG CAPS by mouth twice a day CEFDI ODILIA 13712030127 No Longer Active Carlton Hu MD Active ZITHROMAX Z-REYNA 250 MG TABS 2 today, then 1 daily for 4 days 201 04/09/17 AZITHROMYCIN 25083188386 No Longer Active Hugo Restrepo MD Active TESSALON PERLES 100 MG CAP 1 tablet by mouth 3 times daily a s needed for cough TESSALON PERLES 100 MG CAP 130398 BENZONATATE I nactive PREDNISONE 20 MG TAB 1 po bid 3 days, then 1 po q day 3 days 201 05/03/07 PREDNISONE 20 MG TAB 092857 PREDNISONE Inactive LORTAB 7.5-500 MG/15ML ELIX 7.5 ml po q 4 hour prn cough LORTAB 7.5-500 MG/15ML ELIX HYDROCODONE-ACETAMINOPHEN Inacti ve ACETAMINOPHEN-CODEINE #3 300-30 MG TABS 1 PO Q 4-6 HR PRN PAIN 2 ACETAMINOPHEN-CODEINE #3 300-30 MG TABS 419656 ACETAMIN OPHEN-CODEINE Inactive CHERATUSSIN AC 100-10 MG/5ML SYRP take 1 tsp po q4-6 hours prn c ough CHERATUSSIN AC 100-10 MG/5ML SYRP 249486 GUAIFENESIN-CO DEINE Inactive ACETAMINOPHEN-CODEINE #3 300-30 MG TABS 1 tablet po q 4-6hrs prn pain ACETAMINOPHEN-CODEINE #3 300-30 MG TABS 439999 ACETAMIN OPHEN-CODEINE Inactive HYDROCODONE-ACETAMINOPHEN 5-325 MG TABS 1 po q 6hr PRN cough 201 05/09/16 HYDROCODONE-ACETAMINOPHEN 5-325 MG TABS 690820 HYDROCODONE-ACETAMINOPHEN Inactive AVELOX 400 MG TABS 1 tab by mouth daily A VELOX 400 MG TABS 572172 MOXIFLOXACIN HCL Inactive CHERATUSSIN AC 100-10 MG/5ML SYRP 1 tsp by mouth every 4 hours as needed for cough CHERATUSSIN AC 100-10 MG/5ML SYRP 202773 GUAIFENESIN-CODEINE Inactive TERBINAFINE HCL 250 MG TABS 1 qDay TERBINAFINE HCL 250 MG TABS 096068 TERBINAFINE HCL Inactive CHERATUSSIN AC 100-10 MG/5ML SYRP 1 tsp by mouth every 4 hours as needed for cough CHERATUSSIN AC 100-10 MG/5ML SYRP 658371 GUAIFENESIN-CODEINE Inactive ACETAMINOPHEN-CODEINE #3 300-30 MG TABS 1 PO Q 4-6 HRS PRN PAIN ACETAMINOPHEN-CODEINE #3 300-30 MG TABS 806556 ACETAMINOPHEN-CODEIN E Inactive CHERATUSSIN AC 100-10 MG/5ML SYRP 1 tsp by mouth every 4 hours as needed for cough CHERATUSSIN AC 100-10 MG/5ML SYRP 870454 GUAIFENESIN-CODEINE Inactive AUGMENTIN 875-125 MG TAB 1 tab by mouth twice daily with food 20 12/03/31 AUGMENTIN 875-125 MG TAB 789427 AMOXICILLIN-POT CLAVULA EFE Inactive CHERATUSSIN AC 100-10 MG/5ML SYRP take one tsp po Q 6hours prn c ough CHERATUSSIN AC 100-10 MG/5ML SYRP 027153 GUAIFENESIN-CO DEINE Inactive PROPRANOLOL HCL 60 MG TABS 1 PO Q D P ROPRANOLOL HCL 60 MG TABS 948562 PROPRANOLOL HCL Inactive TOPAMAX 50 MG TABS take 1 tab po BID for migraines. 12/07/10 TOPAMAX 50 MG TABS 077268 TOPIRAMATE Inactive TOPAMAX 25 MG TABS 1 qHS x 1 week, then 1 BID x 1 week, then 1 qAM and 2 qHS x 1 week, then 2 BID (migraine prevention) TOPAMAX 2 5 MG TABS 513343 TOPIRAMATE Inactive LYRICA 75 MG CAPS TAKE 1 CAPSULE BY MOUTH TWICE DAILY LYRICA 75 MG CAPS PREGABALIN Inactive SYMBICORT 160-4.5 MCG/ACT AERO 2 puffs bid with rinse after 2011 SYMBICORT 160-4.5 MCG/ACT AERO BUDESONIDE-FORMOT SÁNCHEZ FUMARATE Inactive PROMETHAZINE-CODEINE 6.25-10 MG/5ML SYRP 1 tsp by mouth ever y 8 hours prn cough PROMETHAZINE-CODEINE 6.25-10 MG/5ML SYRP 206666 PROMETHAZINE-CODEINE Inactive CYMBALTA 30 MG CPEP 1 cap by mouth daily CYMBALTA 30 MG CPEP 755077 DULOXETINE HCL Inactive PREMARIN 0.625 MG TABS TAKE 1 TAB BY MOUTH DAILY 07/25 PREMARIN 0.625 MG TABS ESTROGENS CONJUGATED Inactive CHERATUSSIN AC 100-10 MG/5ML SYRP 1 tsp by mouth every 4 hours as needed for cough CHERATUSSIN AC 100-10 MG/5ML SYRP 987389 GUAIFENESIN-CODEINE Inactive PROMETHAZINE-CODEINE 6.25-10 MG/5ML SYRP 1 tsp by mout h every 6 hours if needed for cough PROMETHAZINE-CODEINE 6.25-10 MG/5ML SYRP 952815 PROMETHAZINE-CODEINE Inactive CHERATUSSIN AC 100-10 MG/5ML SYRP 1 tsp by mouth every 4 hours as needed for cough CHERATUSSIN AC 100-10 MG/5ML SYRP 248557 GUAIFENESIN-CODEINE Inactive FLUTICASONE PROPIONATE 50 MCG/ACT SUSP 1 to 2 sprays each no stril daily FLUTICASONE PROPIONATE 50 MCG/ACT SUSP 363240 FLUTICASONE PROPIONATE Inactive PREDNISONE 20 MG ORAL TABS 3 tab PO qd x 2d, 2 tab PO qd x 2d, 1 tab PO qd x 2d, 1/2 tab PO qd x 2d PREDNISONE 20 MG ORAL TABS 135194 PREDNISONE Inactive LEVOFLOXACIN 500 MG ORAL TABS 1 tab PO daily x 10 days LEVOFLOXACIN 500 MG ORAL TABS 288082 LEVOFLOXACIN Inactive CYCLOBENZAPRINE HCL 10 MG TABS 1 tablet by mouth BID prn had cherlele n CYCLOBENZAPRINE HCL 10 MG TABS 683321 CYCLOBENZAPRINE H CL Inactive ZOCOR 40 MG TAB 1 tab by mouth daily ZOCOR 40 M G TAB 937111 SIMVASTATIN Inactive ZITHROMAX Z-REYNA 250 MG TABS 2 today, then 1 daily for 4 days 201 04/09/17 ZITHROMAX Z-REYNA 250 MG TABS 0855921 AZITHROMYCIN Inac tive CEFDINIR 300 MG CAPS by mouth twice a day CEFDINIR 300 MG CAPS 20020704 CEFDINIR Inactive CEFDINIR 300 MG CAPS by mouth twice a day CEFDINIR 300 MG CAPS 20020704 CEFDINIR Inactive CEFDINIR 300 MG CAPS by mouth twice a day CEFDINIR 300 MG CAPS 005061 CEFDINIR Inactive CEFDINIR 300 MG CAPS by mouth twice a day CEFDINIR 300 MG CAPS 751476 CEFDINIR Inactive ZITHROMAX 250 MG TAB 2 po today, then 1 po q days 2-5 ZITHROMAX 250 MG TAB 2512571 AZITHROMYCIN Inactive CEFDINIR 300 MG CAPS by mouth twice a day CEFDINIR 300 MG CAPS 20020704 CEFDINIR Inactive PREDNISONE 20 MG TAB 2 tabs daily for 3 days, 1 t ab daily for 3 days, 1/2 tab daily for 2 days PREDNISONE 20 MG TAB 076394 PREDNISON E Inactive AVELOX 400 MG TABS 1 tab by mouth daily A VELOX 400 MG TABS 722904 MOXIFLOXACIN HCL Inactive AVELOX 400 MG TABS 1 tab by mouth daily A VELOX 400 MG TABS 854946 MOXIFLOXACIN HCL Inactive PREDNISONE 20 MG TAB Take 3 tabs daily for 3 days , 2 tabs daily for 3 days, 1 tab daily for 3 days, 1/2 tab daily for 3 days PREDNISONE 20 MG TAB 360864 PREDNISONE Inactive LEVAQUIN 500 MG TABS take one po QD LEVAQUIN 50 0 MG TABS 711751 LEVOFLOXACIN Inactive AZITHROMYCIN 250 MG TABS 2 po qd x 1 day, then 1 po qd x 4 days AZITHROMYCIN 250 MG TABS 7583890 AZITHROMYCIN Inactiv e MEDROL (REYNA) 4 MG TABS 6 tabs on day 1, 5 tabs on d ay 2, 4 tabs on day 3, 3 tabs on day 4, 2 tabs on day 5, 1 tab on day 6 MEDROL (REYNA) 4 MG TABS METHYLPREDNISOLONE Inactive CHERATUSSIN AC 100-10 MG/5ML SYRP 5ml po q6hr PRN Cough CHERATUSSIN AC 100-10 MG/5ML SYRP 837602 GUAIFENESIN-CODEINE Inacti ve TRIAMCINOLONE ACETONIDE 0.1 % CREA apply three times daily prn r beatrice TRIAMCINOLONE ACETONIDE 0.1 % CREA 3051436 TRIAMCINOLONE ACETONIDE Inactive AZITHROMYCIN 250 MG TABS 2 po qd x 1 day, then 1 po qd x 4 days AZITHROMYCIN 250 MG TABS 0675439 AZITHROMYCIN Inactiv e MEDROL (REYNA) 4 MG [...] days 20 13/03/08 AMOXICILLIN 500 MG CAP 340227 AMOXICILLIN Inactive AMOXICILLIN 500 MG CAP 1 tab by mouth 3 times daily x 10 days 20 14/04/28 AMOXICILLIN 500 MG CAP 505288 AMOXICILLIN Inactive ZITHROMAX 250 MG TAB 2 po today, then 1 po q days 2-5 ZITHROMAX 250 MG TAB 1424554 AZITHROMYCIN Inactive AUGMENTIN 875-125 MG TAB 1 po BID x 10 days AUGMENTIN 875- 125 MG TAB 335743 AMOXICILLIN-POT CLAVULANATE Inactive ZITHROMAX Z-REYNA 250 MG TABS 2 today, then 1 daily for 4 days 201 08/07/20 ZITHROMAX Z-REYNA 250 MG TABS 6152484 AZITHROMYCIN Inac tive ZITHROMAX 250 MG TAB 2 po today, then 1 po q days 2-5 ZITHROMAX 250 MG TAB 7487192 AZITHROMYCIN Inactive ZITHROMAX Z-REYNA 250 MG TABS 2 today, then 1 daily for 4 days 201 08/30/03 ZITHROMAX Z-REYNA 250 MG TABS 1518383 AZITHROMYCIN Inac tive CEFDINIR 300 MG CAPS 1 po BID x 10 days C EFDINIR 300 MG CAPS 529580 CEFDINIR Inactive Vital Signs Date Name Value [...] Measured Encounters Code Encounter Date Provider Facility CPT-12825 Level 4 Est. Patient 14:36:51 CDT Carlton rich MD [facility] CPT-11367 Level 3 Est. 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 Patient 09:45:49 PAD MACHINE OFFBEARER Carlton rich MD [facility] CPT-19206 Level 3 Est. Patient 13:19:20 CDT Carlton rich MD [facility] CPT-09475 Level 3 Est. Patient 13:06:43 CDT Ridge tam DO [facility] CPT-35535 Level 3 Est. Patient 10:03:07 CDT Perez Mora MD [facility] CPT-05307 Level 3 Est. Patient 19:50:35 PAD MACHINE OFFBEARER Carlton rich MD [facility] CPT-22441 Level 4 Est. Patient 18:05:01 PAD MACHINE OFFBEARER Carlton rich MD [facility] CPT-68566 Level 3 Est. Patient 10:45:55 PAD MACHINE OFFBEARER Hugo Restrepo MD [facility] CPT-42698 Level 3 Est. Patient 14:12:49 CDT Griffin HERNANDEZ [facility] CPT-41868 Level 3 Est. Patient 17:37:24 CDT Carlton rich MD [facility] CPT-89495 Level 3 Est. Patient 16:51:54 CDT Carlton rich MD [facility] CPT-78365 Level 3 Est. Patient 12:18:11 CDT Hugo Restrepo MD [facility] CPT-11245 Level 3 Est. Patient 11:30:25 CDT Marcy crisostomo MD PhD [facility] CPT-34329 Level 3 Est. Patient 12:00:47 PAD MACHINE OFFBEARER Carlton rich MD [facility] CPT-61587 Level 3 Est. Patient 16:31:06 PAD MACHINE OFFBEARER Carlton rich MD [facility] CPT-73989 Level 3 Est. Patient 16:23:24 PAD MACHINE OFFBEARER Ridge tam DO [facility] CPT-34817 Level 3 Est. Patient 12:34:12 CDT Carlton rich MD [facility] CPT-03822 Level 2 Est. Patient 15:43:33 CDT Robi armstrong MD [facility] CPT-43783 Level 4 Est. Patient 14:04:44 CDT Carlton rich MD [facility] CPT-89475 Level 3 Est. Patient 05:47:59 CDT Ridge tam DO [facility] CPT-23008 Level 3 Est. Patient 13:12:53 PAD MACHINE OFFBEARER Carlton rich MD [facility] CPT-78899 Level 3 Est. Patient 14:26:53 CDT Hugo Restrepo MD [facility] Procedures Code Procedure Name Date Entry Date Standard Desc ription CPT-95924 Hip bilat min 2V w AP pelvis 13:16:20 CDT 2 CPT-15739 Pelvis only 13:07:33 CDT CPT-40542 Spec Collection and Handling Fee 11:25:12 C DT CPT-72536 Fluzone Quadrivalent Intramuscular Suspe nsion 0.5 ML 14:31:55 CDT CPT-15242 Abx/Therapy Injection 13:28:47 PAD MACHINE OFFBEARER CPT-J2930 Solu Medrol 125 mg (Methyl Prednisolone Sodium Succinate) 12:00:47 PAD MACHINE OFFBEARER CPT-32580 Venipuncture Draw Fee 11:33:31 CDT CPT-70180 EKG Trac and Interp 11:21:09 CDT CPT-06586 Chest 2V Frontal and Lat 11:21:09 CDT 12/15 CPT-02574 Venipuncture Draw Fee 08:02:34 CDT CPT-97202 Chest 2V Frontal and Lat 05:47:59 CDT 06/05
--- OUTSIDE RECORDS SUMMARY | 2019-10-08 10:18 | XMS REPORT | Clinical Summary ---
Author Author Caitlin, Juliana Martinez Organization [employer] [facility] Address Unknown Phone Unavailable Allergies, [...] x 10 days 20 16/03/22 AMOXICILLIN-POT CLAVULANATE [id number] No Longer Active Elise Whitmore APRN Active TERBINAFINE HCL 250 MG ORAL TABLET 1 qDay for nail fungus 7 TERBINAFINE HCL 78529625911 No Longer Active Carlton Hu MD A ctive TUSSIONEX PENNKINETIC ER 10-8 MG/5ML ORAL SUSPENSION E XTENDED RELEASE 5ml po q12hr PRN Cough HYDROCOD POLST-CHLORPHEN POLST 38150345961 Active Carlton Hu MD Active PREDNISONE 20 MG ORAL TABLET 1 tab twice daily for 3 d ay, then one daily for three days PREDNISONE 89865570486 Active Carlton Hu MD Active AMOXICILLIN 500 MG ORAL CAPSULE 1 cap by mouth three times a day AMOXICILLIN 95236098195 No Longer Active Carlton Hu MD Active ELMIRON 100 MG ORAL CAPSULE 2 tablets in the am and 1 tablet at hs PENTOSAN POLYSULFATE SODIUM 71506613690 No Longer Active Robert Hu MD Active MUCINEX D 60-600 MG ORAL TABLET EXTENDED RELEASE 12 HOUR 1 t ab po q am PSEUDOEPHEDRINE-GUAIFENESIN 92965860840 No Longer Act nael Carlton Hu MD Active MUCINEX DM MAXIMUM STRENGTH 60-1200 MG ORAL TABLET EXT ENDED RELEASE 12 HOUR 1 tab po q am DEXTROMETHORPHAN-GUAIFENESIN 38163304509 No Longer Active Carlton Hu MD Active TUSSIONEX PENNKINETIC ER 10-8 MG/5ML ORAL SUSPENSION E XTENDED RELEASE 5ml po q12hr PRN Cough HYDROCOD POLST-CHLORPHEN POLST 5 6550367330 No Longer Active Carlton Hu MD Active POTASSIUM CHLORIDE ER 20 MEQ ORAL TABLET EXTENDED RELE ASE Take 1 by mouth 4 times daily for 7 days POTASSIUM CHLORIDE 85524312841 No Longer Active Carlton Hu MD Active ZITHROMAX 250 MG ORAL TABLET 2 po today, then 1 po q days 2-5 20 14/09/04 AZITHROMYCIN 79464853094 No Longer Active Elise Whitmore APRN Active TUSSIONEX PENNKINETIC ER 10-8 MG/5ML ORAL SUSPENSION E XTENDED RELEASE 5 ml twice a day as needed for cough HYDROCOD POLST-CHLORPH EN POLST 81681068679 No Longer Active Elise Whitmore APRN Active MONTELUKAST SODIUM 10 MG ORAL TABLET 1 po daily for Allergy MONTELUKAST SODIUM 06199760498 Active Carlton Hu MD Ac tive TUSSIONEX PENNKINETIC ER 10-8 MG/5ML ORAL SUSPENSION E XTENDED RELEASE 5ml po q12hr PRN Cough HYDROCOD POLST-CHLORPHEN POLST 5 7607931722 No Longer Active Hugo Restrepo MD Active GABAPENTIN 100 MG ORAL CAPSULE 1 po BID for fibromyalgia GABAPENTIN 99542665732 Active Carlton Hu MD Active LYRICA 100 MG ORAL CAPSULE Take 1 tab po BID for fibromyalgia 20 11/08/21 PREGABALIN 15948460027 No Longer Active Elise Whitmore APRN Active PROAIR HFA 108 (90 Base) MCG/ACT INHALATION AEROSOL SO LUTION 2 puffs four times a day as needed ALBUTEROL SULFATE 40996098528 Active Lyndsay Whitmore APRN Active PREDNISONE 20 MG ORAL TABLET 2 tabs daily for 3 days, 1 tab daily for 3 days, 1/2 tab daily for 2 days PREDNISONE 64493232320 No Longer Active Jillina Frakerriel 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 TUSSIONEX PENNKINETIC ER 10-8 MG/5ML ORAL SUSPENSION E XTENDED RELEASE 5 mL PO q 12 hrs PRN cough HYDROCOD POLST-CHLORPHEN POLST 300089 38598 No Longer Active Jillina Frazell 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 FLUTICASONE PROPIONATE 50 MCG/ACT NASAL SUSPENSION 2 s prays each nostril daily until bottle is empty FLUTICASONE PROPIONATE 265535012 99 No Longer Active Jillina Frazell 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 ASMANEX 60 METERED DOSES 220 MCG/INH INHALATION AEROSO L POWDER BREATH ACTIVATED 1 puff bid with rinse after MOMETASONE FUROATE 1491053 4102 No Longer Active Jillina Frazell 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 ZITHROMAX Z-REYNA 250 MG ORAL TABLET 2 today, then 1 daily for 4 d ays AZITHROMYCIN 65534063256 No Longer Active Elise Whitmore APRN Active TUSSIONEX PENNKINETIC ER 10-8 MG/5ML ORAL SUSPENSION E XTENDED RELEASE 5ml po q12hr PRN Cough HYDROCOD POLST-CHLORPHEN POLST 5 1347199842 No Longer Active Elise Whitmore APRN Active PREDNISONE 20 MG ORAL TABLET 2 tabs daily for 3 days, 1 tab daily for 3 days, 1/2 tab daily for 2 days PREDNISONE 05433802240 No Longer Active Diya De Guzman APRN Active AMOXICILLIN 500 MG ORAL CAPSULE 2 po BID x 10 days 201 09/29/08 AMOXICILLIN 48703964101 No Longer Active Jillina Gege RICEN Act nael SINGULAIR 10 MG ORAL TABLET 1 po qday for allergies 20 14/01/12 MONTELUKAST SODIUM 00290165725 No Longer Active Carlton Hu MD Active LEVAQUIN 500 MG ORAL TABLET 1 tablet by mouth daily 20 13/09/24 LEVOFLOXACIN 16254421271 No Longer Active Carlton Hu MD Acti ve FLUTICASONE PROPIONATE 50 MCG/ACT NASAL SUSPENSION 2 s prays each nostril daily for 2 weeks, then 1 spray each nostril daily. FLUTICASONE PROPIONATE 80246786030 Active Elise Whitmore APRN Active ZITHROMAX 250 MG ORAL TABLET 2 po today, then 1 po q days 2-5 20 13/08/10 AZITHROMYCIN 84262942376 No Longer Active Elise Whitmore APRN Active XANAX 0.5 MG ORAL TABLET one tablet by mouth daily prn anxiety 2015 ALPRAZOLAM 53198640324 Active Carlton Hu MD Active CYMBALTA 30 MG ORAL CAPSULE DELAYED RELEASE PARTICLES 1 cap by mouth daily for depression DULOXETINE HCL 34939868160 Active Carlton beltrán MD Active CEFDINIR 300 MG ORAL CAPSULE 1 po BID x 10 days CEFDINIR 67861973287 No Longer Active Carlton Hu MD Active ZOCOR 40 MG ORAL TABLET 1 tab by mouth daily SI MVASTATIN 25650672939 No Longer Active Carlton Hu MD Active CYCLOBENZAPRINE HCL 10 MG ORAL TABLET 1 tablet by mouth BID prn had pain CYCLOBENZAPRINE HCL 53807327572 No Longer Active Jayden Hu MD Active LEVOFLOXACIN 500 MG ORAL TABLET 1 tab PO daily x 10 days LEVOFLOXACIN 49072813507 No Longer Active Carlton Hu MD Acti ve PREDNISONE 20 MG ORAL TABLET 3 tab PO qd x 2d, 2 tab P O qd x 2d, 1 tab PO qd x 2d, 1/2 tab PO qd x 2d PREDNISONE 59866233127 No Lo nger Active Carlton Hu MD Active FLUTICASONE PROPIONATE 50 MCG/ACT NASAL SUSPENSION 1 t o 2 sprays each nostril daily FLUTICASONE PROPIONATE 37049175322 No Longer Ac tive Blaine HERNANDEZ Active CHERATUSSIN AC 100-10 MG/5ML ORAL SYRUP 1 tsp by mouth every 4 hours as needed for cough GUAIFENESIN-CODEINE 43785137495 No Longe r Active Blaine HERNANDEZ Active PROMETHAZINE-CODEINE 6.25-10 MG/5ML ORAL SYRUP 1 tsp b y mouth every 6 hours if needed for cough PROMETHAZINE-CODEINE 67469131155 No Longer Active Blaine HERNANDEZ Active CHERATUSSIN AC 100-10 MG/5ML ORAL SYRUP 1 tsp by mouth every 4 hours as needed for cough GUAIFENESIN-CODEINE 22422052591 No Longe r Active Blaine HERNANDEZ Active ZITHROMAX Z-REYNA 250 MG ORAL TABLET 2 today, then 1 daily for 4 d ays AZITHROMYCIN 76282808292 No Longer Active Columba Parrish Act nael ZITHROMAX 250 MG ORAL TABLET 2 po today, then 1 po q days 2-5 20 14/03/21 AZITHROMYCIN 36636326442 No Longer Active Calrton Hu MD Active ZITHROMAX Z-REYNA 250 MG ORAL TABLET 2 today, then 1 daily for 4 d ays AZITHROMYCIN 53218249989 No Longer Active Columba Parrish Act nael AUGMENTIN 875-125 MG ORAL TABLET 1 po BID x 10 days 20 13/01/20 AMOXICILLIN-POT CLAVULANATE 32610063949 No Longer Active Diya Daphnebrayan KHAN Active ZITHROMAX 250 MG ORAL TABLET 2 po today, then 1 po q days 2-5 12/08/14 AZITHROMYCIN 72365535442 No Longer Active Carlton Hu MD Active TRAMADOL HCL 50 MG ORAL TABLET 1 po tid with ES Tylenol TRAMADOL HCL 76736411994 Active Carlton Hu MD Active PREMARIN 0.625 MG ORAL TABLET TAKE 1 TAB BY MOUTH DAILY ESTROGENS CONJUGATED 68560403824 No Longer Active Ridge Bess DO A ctive CYMBALTA 30 MG ORAL CAPSULE DELAYED RELEASE PARTICLES 1 cap by mouth daily DULOXETINE HCL 28629391590 No Longer Active Ridge tam DO Active AMOXICILLIN 500 MG ORAL CAPSULE 1 tab by mouth 3 times daily x 10 days AMOXICILLIN 50484587319 No Longer Active Carlton bustamante MD Active AMOXICILLIN 500 MG ORAL CAPSULE 1 tab by mouth 3 times daily x 10 days AMOXICILLIN 43411186662 No Longer Active Carlton bustamante MD Active PROMETHAZINE-CODEINE 6.25-10 MG/5ML ORAL SYRUP 1 tsp b y mouth every 8 hours prn cough PROMETHAZINE-CODEINE 26771912051 No Longer Acti ve Carlton Hu MD Active MEDROL 4 MG ORAL TABLET THERAPY PACK 6 pills x 1 day, then 5 pills x 1 day then 4 pills x 1 day, then 3 pills x 1 day, then 2 pills x 1 day, then 1 pill x 1 day, then stop METHYLPREDNISOLONE 31625558490 No Long er Active Perez Mora MD Active AZITHROMYCIN 250 MG ORAL TABLET 2 po qd x 1 day, then 1 po q d x 4 days AZITHROMYCIN 73906260599 No Longer Active Perez Ambriz MD Active SYMBICORT 160-4.5 MCG/ACT INHALATION AEROSOL 2 puffs bid wit h rinse after BUDESONIDE-FORMOTEROL FUMARATE 50294053879 N o Longer Active Perez Mora MD Active LYRICA 75 MG ORAL CAPSULE TAKE 1 CAPSULE BY MOUTH TWICE DAILY PREGABALIN 98171222233 No Longer Active Carlton Hu MD Acti ve TOPAMAX 25 MG ORAL TABLET 1 qHS x 1 week, then 1 BID x 1 week, then 1 qAM and 2 qHS x 1 week, then 2 BID (migraine prevention) T OPIRAMATE 05741589648 No Longer Active Jerica FUENTES Active TOPAMAX 50 MG ORAL TABLET take 1 tab po BID for migraines. 07/02 TOPIRAMATE 66587748354 No Longer Active Jerica FUENTES Active TOPAMAX 100 MG ORAL TABLET Take 1 tablet po bid TO PIRAMATE 14884961792 Active Carlton Hu MD Active TRIAMCINOLONE ACETONIDE 0.1 % EXTERNAL CREAM apply three roger es daily prn rash TRIAMCINOLONE ACETONIDE 19447571589 No Longer Active Carlton Hu MD Active PAXIL 40 MG ORAL TABLET take 1 tab po qday for depression 0 PAROXETINE HCL 20199872222 Active Carlton Hu MD Active CHERATUSSIN AC 100-10 MG/5ML ORAL SYRUP 5ml po q6hr PRN Cough 20 13/04/14 GUAIFENESIN-CODEINE 78228372644 No Longer Active Carlton Hu MD Active MEDROL 4 MG ORAL TABLET THERAPY PACK 6 tabs on day 1, 5 tabs on day 2, 4 tabs on day 3, 3 tabs on day 4, 2 tabs on day 5, 1 tab on day 6 2013 METHYLPREDNISOLONE 37656126670 No Longer Active Perez Mora MD Active AZITHROMYCIN 250 MG ORAL TABLET 2 po qd x 1 day, then 1 po q d x 4 days AZITHROMYCIN 60777236656 No Longer Active Perez Ambriz MD Active PROPRANOLOL HCL 60 MG ORAL TABLET 1 PO Q D PROPRANOLOL HCL 73035863495 No Longer Active Perez Mora MD Activ e CHERATUSSIN AC 100-10 MG/5ML ORAL SYRUP take one tsp po Q 6h ours prn cough GUAIFENESIN-CODEINE 79865499896 No Longer Active Zia Mora MD Active AUGMENTIN 875-125 MG ORAL TABLET 1 tab by mouth twice daily with food AMOXICILLIN-POT CLAVULANATE 00480406730 No Longer Act nael Perez Mora MD Active CHERATUSSIN AC 100-10 MG/5ML ORAL SYRUP 1 tsp by mouth every 4 hours as needed for cough GUAIFENESIN-CODEINE 30057823327 No Longe r Active Hugo Restrepo MD Active ACETAMINOPHEN-CODEINE #3 300-30 MG ORAL TABLET 1 PO Q 4-6 HRS MO N PAIN ACETAMINOPHEN-CODEINE 25391242373 No Longer Active Hugo Restrepo MD Active LEVAQUIN 500 MG ORAL TABLET take one po QD LEVO FLOXACIN 56925252495 No Longer Active Griffin HERNANDEZ Active PREDNISONE 20 MG ORAL TABLET Take 3 tabs daily for 3 d ays, 2 tabs daily for 3 days, 1 tab daily for 3 days, 1/2 tab daily for 3 days 11/07 PREDNISONE 55881485803 No Longer Active Carlton Hu MD Acti ve AVELOX 400 MG ORAL TABLET 1 tab by mouth daily MOXIFLOXACIN HCL 58853910253 No Longer Active Carlton Hu MD Active CHERATUSSIN AC 100-10 MG/5ML ORAL SYRUP 1 tsp by mouth every 4 hours as needed for cough GUAIFENESIN-CODEINE 24955843470 No Longe r Active Hugo Restrepo MD Active AVELOX 400 MG ORAL TABLET 1 tab by mouth daily MOXIFLOXACIN HCL 15636575857 No Longer Active Marcy De La Rosa MD PhD Active TERBINAFINE HCL 250 MG ORAL TABLET 1 qDay T ERBINAFINE HCL 02689188712 No Longer Active Marcy De La Rosa MD PhD Active CHERATUSSIN AC 100-10 MG/5ML ORAL SYRUP 1 tsp by mouth every 4 hours as needed for cough GUAIFENESIN-CODEINE 73162108562 No Longe r Active Marcy De La Rosa MD PhD Active AVELOX 400 MG ORAL TABLET 1 tab by mouth daily MOXIFLOXACIN HCL 01406308243 No Longer Active Marcy De La Rosa MD PhD Active HYDROCODONE-ACETAMINOPHEN 5-325 MG ORAL TABLET 1 po q 6hr PRN co ugh HYDROCODONE-ACETAMINOPHEN 90161666155 No Longer Active Marcy De La Rosa MD PhD Active PREDNISONE 20 MG ORAL TABLET 2 tabs daily for 3 days, 1 tab daily for 3 days, 1/2 tab daily for 2 days PREDNISONE 27604570246 No Longer Active Carlton Hu MD Active CEFDINIR 300 MG ORAL CAPSULE by mouth twice a day 2011 CEFDINIR 22040821153 No Longer Active Carlton Hu MD Acti ve HYDROCHLOROTHIAZIDE 25 MG ORAL TABLET 1 TAB PO DAILY HYDROCHLOROTHIAZIDE 32826467757 Active Carlton Hu MD A ctive ACETAMINOPHEN-CODEINE #3 300-30 MG ORAL TABLET 1 tablet po q 4-6 hrs prn pain ACETAMINOPHEN-CODEINE 93821335386 No Longer Active Ridge Bess DO Active ZITHROMAX 250 MG ORAL TABLET 2 po today, then 1 po q days 2-5 20 03/07/07 AZITHROMYCIN 99936647354 No Longer Active Carlton Hu MD Active CHERATUSSIN AC 100-10 MG/5ML ORAL SYRUP take 1 tsp po q4-6 h ours prn cough GUAIFENESIN-CODEINE 85610736160 No Longer Active Jayden Hu MD Active ACETAMINOPHEN-CODEINE #3 300-30 MG ORAL TABLET 1 PO Q 4-6 HR PRN PAIN ACETAMINOPHEN-CODEINE 46753037387 No Longer Active Arnol Hu MD Active LORTAB 7.5-500 MG/15ML ORAL ELIXIR 7.5 ml po q 4 hour prn cough HYDROCODONE-ACETAMINOPHEN 22889476263 No Longer Active Carlton Hu MD Active PREDNISONE 20 MG ORAL TABLET 1 po bid 3 days, then 1 po q day 3 days PREDNISONE 09866631373 No Longer Active Carlton Hu MD Active CEFDINIR 300 MG ORAL CAPSULE by mouth twice a day 2011 CEFDINIR 68442796721 No Longer Active Carlton Hu MD Acti ve CEFDINIR 300 MG ORAL CAPSULE by mouth twice a day 2010 CEFDINIR 16562588833 No Longer Active Carlton Hu MD Acti ve CEFDINIR 300 MG ORAL CAPSULE by mouth twice a day 2010 CEFDINIR 95727229739 No Longer Active Carlton Hu MD Acti ve TESSALON PERLES 100 MG ORAL CAPSULE 1 tablet by mouth 3 times daily as needed for cough BENZONATATE 15545055198 No Longer Active Carlton Hu MD Active CEFDINIR 300 MG ORAL CAPSULE by mouth twice a day 2010 CEFDINIR 68410748850 No Longer Active Carlton Hu MD Acti ve ZITHROMAX Z-REYNA 250 MG ORAL TABLET 2 today, then 1 daily for 4 d ays AZITHROMYCIN 09967580849 No Longer Active Hugo Restrepo MD Active TESSALON PERLES 100 MG ORAL CAPSULE 1 tablet by mouth 3 times daily as needed for cough TESSALON PERLES 100 MG ORAL CAPSULE 97931 7 BENZONATATE Inactive PREDNISONE 20 MG ORAL TABLET 1 po bid 3 days, then 1 po q day 3 days PREDNISONE 20 MG ORAL TABLET 040476 PREDNISONE [place] ctive LORTAB 7.5-500 MG/15ML ORAL ELIXIR 7.5 [...] cough CHERATUSSIN AC 100-10 MG/5ML ORAL SYRUP 920862 GUAIFENESIN-CODEINE Inactive ACETAMINOPHEN-CODEINE #3 300-30 MG ORAL TABLET 1 tablet po q 4-6 hrs prn pain ACETAMINOPHEN-CODEINE #3 300-30 MG ORAL TABLET ACETAMINOPHEN-CODEINE Inactive HYDROCODONE-ACETAMINOPHEN 5-325 MG ORAL TABLET 1 po q 6hr PRN co ugh HYDROCODONE-ACETAMINOPHEN 5-325 MG ORAL TABLET 694238 HYDROCODONE-ACETAMINOPHEN Inactive AVELOX 400 MG ORAL TABLET 1 tab by mouth daily AVELOX 400 MG ORAL TABLET 067898 MOXIFLOXACIN HCL Inactive CHERATUSSIN AC 100-10 MG/5ML ORAL SYRUP 1 tsp by mouth every 4 hours as needed for cough CHERATUSSIN AC 100-10 MG/5ML ORAL SYRUP 9 81765 GUAIFENESIN-CODEINE Inactive TERBINAFINE HCL 250 MG ORAL TABLET 1 qDay 07/08 TERBINAFINE HCL 250 MG ORAL TABLET 589037 TERBINAFINE HCL Inactive CHERATUSSIN AC 100-10 MG/5ML ORAL SYRUP 1 tsp by mouth every 4 hours as needed for cough CHERATUSSIN AC 100-10 MG/5ML ORAL SYRUP 9 35965 GUAIFENESIN-CODEINE Inactive ACETAMINOPHEN-CODEINE #3 300-30 MG ORAL TABLET 1 PO Q 4-6 HRS MO N PAIN ACETAMINOPHEN-CODEINE #3 300-30 MG ORAL TABLET ACETAMINOPHEN-CODEINE Inactive CHERATUSSIN AC 100-10 MG/5ML ORAL SYRUP 1 tsp by mouth every 4 hours as needed for cough CHERATUSSIN AC 100-10 MG/5ML ORAL SYRUP 9 91584 GUAIFENESIN-CODEINE Inactive AUGMENTIN 875-125 MG ORAL TABLET 1 tab by mouth twice daily with food AUGMENTIN 875-125 MG ORAL TABLET 971216 AMOXICIL MADELINE-POT CLAVULANATE Inactive CHERATUSSIN AC 100-10 MG/5ML ORAL SYRUP take one tsp po Q 6h ours prn cough CHERATUSSIN AC 100-10 MG/5ML ORAL SYRUP 706565 GUAIFENESIN-CODEINE Inactive PROPRANOLOL HCL 60 MG ORAL TABLET 1 PO Q D PROPRANOLOL HCL 60 MG ORAL TABLET 557879 PROPRANOLOL HCL Inactive TOPAMAX 50 MG ORAL TABLET take 1 tab po BID for migraines. 07/02 TOPAMAX 50 MG ORAL TABLET 752207 TOPIRAMATE Inacti ve TOPAMAX 25 MG ORAL TABLET 1 qHS x 1 week, then 1 BID x 1 week, then 1 qAM and 2 qHS x 1 week, then 2 BID (migraine prevention) TOPAMAX 25 MG ORAL TABLET 387054 TOPIRAMATE Inactive LYRICA 75 MG ORAL CAPSULE TAKE 1 CAPSULE BY MOUTH TWICE DAILY LYRICA 75 MG ORAL CAPSULE PREGABALIN Inactive SYMBICORT 160-4.5 MCG/ACT INHALATION AEROSOL 2 puffs bid wit h rinse after SYMBICORT 160-4.5 MCG/ACT INHALATION AEROSOL BUDESONIDE- FORMOTEROL FUMARATE Inactive PROMETHAZINE-CODEINE 6.25-10 MG/5ML ORAL SYRUP 1 tsp b y mouth every 8 hours prn cough PROMETHAZINE-CODEINE 6.25-10 MG/ 5ML ORAL SYRUP 183414 PROMETHAZINE-CODEINE Inactive CYMBALTA 30 MG ORAL CAPSULE DELAYED RELEASE PARTICLES 1 cap by mouth daily CYMBALTA 30 MG ORAL CAPSULE DELAYED RELE ASE PARTICLES 617448 DULOXETINE HCL Inactive PREMARIN 0.625 MG ORAL TABLET TAKE 1 TAB BY MOUTH DAILY PREMARIN 0.625 MG ORAL TABLET ESTROGENS CONJUGATED Inactive CHERATUSSIN AC 100-10 MG/5ML ORAL SYRUP 1 tsp by mouth every 4 hours as needed for cough CHERATUSSIN AC 100-10 MG/5ML ORAL SYRUP 9 46426 GUAIFENESIN-CODEINE Inactive PROMETHAZINE-CODEINE 6.25-10 MG/5ML ORAL SYRUP 1 tsp b y mouth every 6 hours if needed for cough PROMETHAZINE-CODEINE 6.25-10 MG/5ML ORAL SYRUP 215434 PROMETHAZINE-CODEINE Inactive CHERATUSSIN AC 100-10 MG/5ML ORAL SYRUP 1 tsp by mouth every 4 hours as needed for cough CHERATUSSIN AC 100-10 MG/5ML ORAL SYRUP 9 72263 GUAIFENESIN-CODEINE Inactive FLUTICASONE PROPIONATE 50 MCG/ACT NASAL SUSPENSION 1 t o 2 sprays each nostril daily FLUTICASONE PROPIONATE 50 MCG/AC T NASAL SUSPENSION 1610311 FLUTICASONE PROPIONATE Inactive PREDNISONE 20 MG ORAL TABLET 3 tab PO qd x 2d, 2 tab P O qd x 2d, 1 tab PO qd x 2d, 1/2 tab PO qd x 2d PREDNISONE 20 MG ORAL TAB LET 522102 PREDNISONE Inactive LEVOFLOXACIN 500 MG ORAL TABLET 1 tab PO daily x 10 days LEVOFLOXACIN 500 MG ORAL TABLET 513539 LEVOFLOXACIN Inactive CYCLOBENZAPRINE HCL 10 MG ORAL TABLET 1 tablet by mouth BID prn had pain CYCLOBENZAPRINE HCL 10 MG ORAL TABLET 530579 CYCLOBENZAPRINE HCL Inactive ZOCOR 40 MG ORAL TABLET 1 tab by mouth daily 4 ZOCOR 40 MG ORAL TABLET 396049 SIMVASTATIN Inactive TUSSIONEX PENNKINETIC ER 10-8 MG/5ML [...] FLUTICASONE PROPIO EFE 50 MCG/ACT NASAL SUSPENSION 5977051 FLUTICASONE PROPIONATE Inactive TUSSIONEX PENNKINETIC ER 10-8 [...] ays ZITHROMAX Z-REYNA 250 MG ORAL TABLET 919531 AZITHROMYCIN Inactive CEFDINIR 300 MG ORAL CAPSULE by mouth twice a day 2010 CEFDINIR 300 MG ORAL CAPSULE 770562 CEFDINIR Inactive CEFDINIR 300 MG ORAL CAPSULE by mouth twice a day 2010 CEFDINIR 300 MG ORAL CAPSULE 725162 CEFDINIR Inactive CEFDINIR 300 MG ORAL CAPSULE by mouth twice a day 2010 CEFDINIR 300 MG ORAL CAPSULE 352761 CEFDINIR Inactive CEFDINIR 300 MG ORAL CAPSULE by mouth twice a day 2011 CEFDINIR 300 MG ORAL CAPSULE 051884 CEFDINIR Inactive ZITHROMAX 250 MG ORAL TABLET 2 po today, then 1 po q days 2-5 03/07/07 ZITHROMAX 250 MG ORAL TABLET 181212 AZITHROMYCIN [place] ctive CEFDINIR 300 MG ORAL CAPSULE by mouth twice a day 2011 CEFDINIR 300 MG ORAL CAPSULE 20020704 CEFDINIR Inactive PREDNISONE 20 MG ORAL TABLET 2 tabs daily for 3 days, 1 tab daily for 3 days, 1/2 tab daily for 2 days PREDNISONE 20 MG ORAL T ABLET 661083 PREDNISONE Inactive AVELOX 400 MG ORAL TABLET 1 tab by mouth daily AVELOX 400 MG ORAL TABLET 898853 MOXIFLOXACIN HCL Inactive AVELOX 400 MG ORAL TABLET 1 tab by mouth daily AVELOX 400 MG ORAL TABLET 483068 MOXIFLOXACIN HCL Inactive PREDNISONE 20 MG ORAL TABLET Take 3 tabs daily for 3 d ays, 2 tabs daily for 3 days, 1 tab daily for 3 days, 1/2 tab daily for 3 days 11/07 PREDNISONE 20 MG ORAL TABLET 360073 PREDNISONE Inactive LEVAQUIN 500 MG ORAL TABLET take one po QD LEVAQUIN 500 MG ORAL TABLET 891753 LEVOFLOXACIN Inactive AZITHROMYCIN 250 MG ORAL TABLET 2 po qd x 1 day, then 1 po q d x 4 days AZITHROMYCIN 250 MG ORAL TABLET 414830 AZITHROMY GIOVANNI Inactive MEDROL 4 MG ORAL TABLET THERAPY PACK 6 tabs on day 1, 5 tabs on day 2, 4 tabs on day 3, 3 tabs on day 4, 2 tabs on day 5, 1 tab on day 6 2013 MEDROL 4 MG ORAL TABLET THERAPY PACK 200752 METHYLPREDNISOLONE [place] ctive CHERATUSSIN AC 100-10 MG/5ML ORAL SYRUP 5ml po q6hr PRN Cough 20 13/04/14 CHERATUSSIN AC 100-10 MG/5ML ORAL SYRUP 369816 GUAIFENE SIN-CODEINE Inactive TRIAMCINOLONE ACETONIDE 0.1 % EXTERNAL CREAM apply three roger es daily prn rash TRIAMCINOLONE ACETONIDE 0.1 % EXTERNAL CREAM 101 4314 TRIAMCINOLONE ACETONIDE Inactive AZITHROMYCIN 250 MG ORAL TABLET 2 po qd x 1 day, then 1 po q d x 4 days AZITHROMYCIN 250 MG ORAL TABLET 169037 AZITHROMY GIOVANNI Inactive MEDROL 4 MG ORAL TABLET THERAPY PACK 6 pills x 1 day, then 5 pills x 1 day then 4 pills x 1 day, then 3 pills x 1 day, then 2 pills x 1 day, then 1 pill x 1 day, then stop MEDROL 4 MG ORAL TABLET THERAPY PACK 590003 METHYLPREDNISOLONE Inactive AMOXICILLIN 500 MG ORAL CAPSULE 1 tab by mouth 3 times daily x 10 days AMOXICILLIN 500 MG ORAL CAPSULE 578336 AMOXICILL IN Inactive AMOXICILLIN 500 MG ORAL CAPSULE 1 tab by mouth 3 times daily x 10 days AMOXICILLIN 500 MG ORAL CAPSULE 823898 AMOXICILL IN Inactive ZITHROMAX 250 MG ORAL TABLET 2 po today, then 1 po q days 2-5 20 12/08/14 ZITHROMAX 250 MG ORAL TABLET 184220 AZITHROMYCIN [place] ctive AUGMENTIN 875-125 MG ORAL TABLET 1 po BID x 10 days 20 13/01/20 AUGMENTIN 875-125 MG ORAL TABLET 031507 AMOXICILLIN-POT CLAVULANATE Inactive ZITHROMAX Z-REYNA 250 MG ORAL TABLET 2 today, then 1 daily for 4 d ays ZITHROMAX Z-REYNA 250 MG ORAL TABLET 669170 AZITHROMYCIN Inactive ZITHROMAX 250 MG ORAL TABLET 2 po today, then 1 po q days 2-5 20 14/03/21 ZITHROMAX 250 MG ORAL TABLET 553127 AZITHROMYCIN [place] ctive ZITHROMAX Z-REYNA 250 MG ORAL TABLET 2 today, then 1 daily for 4 d ays ZITHROMAX Z-REYNA 250 MG ORAL TABLET 099655 AZITHROMYCIN Inactive CEFDINIR 300 MG ORAL CAPSULE 1 po BID x 10 days 06/21 CEFDINIR 300 MG ORAL CAPSULE 20020704 CEFDINIR Inactive ZITHROMAX 250 MG ORAL TABLET 2 po today, then 1 po q days 2-5 20 13/08/10 ZITHROMAX 250 MG ORAL TABLET 377301 AZITHROMYCIN [place] ctive LEVAQUIN 500 MG ORAL TABLET 1 tablet by mouth daily 20 13/09/24 LEVAQUIN 500 MG ORAL TABLET 19971102 LEVOFLOXACIN Inactive SINGULAIR 10 MG ORAL TABLET 1 po qday for allergies 20 14/01/12 SINGULAIR 10 MG ORAL TABLET 20010504 MONTELUKAST SODIUM Inactive AMOXICILLIN 500 MG ORAL CAPSULE 2 po BID x 10 days 201 09/29/08 AMOXICILLIN 500 MG ORAL CAPSULE 042421 AMOXICILLIN Inactive PREDNISONE 20 MG ORAL TABLET 2 tabs daily for 3 days, 1 tab daily for 3 days, 1/2 tab daily for 2 days PREDNISONE 20 MG ORAL T ABLET 653509 PREDNISONE Inactive ZITHROMAX Z-REYNA 250 MG ORAL TABLET 2 today, then 1 daily for 4 d ays ZITHROMAX Z-REYNA 250 MG ORAL TABLET 057858 AZITHROMYCIN Inactive PREDNISONE 20 MG ORAL TABLET 2 tabs daily for 3 days, 1 tab daily for 3 days, 1/2 tab daily for 2 days PREDNISONE 20 MG ORAL T ABLET 157243 PREDNISONE Inactive ZITHROMAX 250 MG ORAL TABLET 2 po today, then 1 po q days 2-5 14/09/04 ZITHROMAX 250 MG ORAL TABLET 578359 AZITHROMYCIN Greer ctive AMOXICILLIN 500 MG ORAL CAPSULE 1 cap by mouth three times a day AMOXICILLIN 500 MG ORAL CAPSULE 132994 AMOXICILLIN Inactive TERBINAFINE HCL 250 MG ORAL TABLET 1 qDay for nail fungus 7 TERBINAFINE HCL 250 MG ORAL TABLET 204641 TERBINAFINE HCL Inact nael AUGMENTIN 875-125 MG ORAL TABLET 1 po BID x 10 days 20 16/03/22 AUGMENTIN 875-125 MG ORAL TABLET 498216 AMOXICILLIN-POT CLAVULANATE Inactive Vital Signs Date Name [...] - Chem istry sodium, serum 132 mmol/L [phone]/07/12 potassium, serum 2.7 mmol/L 3.5-5.2 chloride, serum 93 mmol/L 98-107 carbon dioxide, venous blood 30.8 mmol/L 21.0-32 .0 blood glucose 107 mg/dL 65-110 calcium, serum 9.3 mg/dL 8.5-10.1 urea nitrogen, blood 12 mg/dL 7-18 creatinine, serum 1.00 mg/dL 0.60-1.30 sodium, serum 142 mmol/L 588-935 4015/07/17 potassium, serum 4.2 mmol/L 3.5-5.2 chloride, serum 106 mmol/L 98-107 carbon dioxide, venous blood 29.9 mmol/L 21.0-32 .0 blood glucose 108 mg/dL 65-110 calcium, serum 9.1 mg/dL 8.5-10.1 urea nitrogen, blood 11 mg/dL 7-18 creatinine, serum 0.81 mg/dL 0.60-1.30 Lab Report: Rapid Strep - Lab Microbial identification kit, rapid strep method Negative Negative Encounters Code Encounter Date Provider Facility [id number] Level 3 Est. Patient 10:26:00 [facility] MACHINE OPERATOR Italo KHAN [facility] CPT-75716 Level 3 Est. Patient 13:35:41 TUFTING MACHINE OPERATOR Carlton rich MD [facility] CPT-20103 Level 3 Est. Patient 10:03:52 TUFTING MACHINE OPERATOR Carlton rich MD [facility] CPT-44693 Level 3 Est. Patient 12:17:50 CDT Hugo Restrepo MD [facility] CPT-36388 Level 3 Est. Patient 13:42:38 CDT Elise And chelly [facility] [place] CPT-02452 Level 3 Est. Patient 13:23:[address] [facility] [place] CPT-82197 Level 3 Est. Patient 14:22:19 TUFTING MACHINE OPERATOR Astridgreer Mariana cobian [facility] [place] CPT-50394 Level 3 Est. Patient 10:11:46 CDT Carlton rich MD [facility] CPT-65341 Level 3 Est. Patient 17:29:43 CDT [address]on [facility] [place] CPT-10639 Level 3 Est. Patient 11:58:06 [facility] Level 4 Est. Patient 14:36:51 CDT Carlton rich MD [facility]-15433 Level 3 Est. Patient 18:16:00 TUFTING MACHINE OPERATOR Blaine HERNANDEZ [facility] CPT-44271 Level 3 Est. Patient 09:45:49 TUFTING MACHINE OPERATOR Carlton rich MD [facility] CPT-66767 Level 3 Est. Patient 13:19:20 CDT Carlton rich MD [facility] CPT-18916 Level 3 Est. Patient 13:06:43 CDT Ridge tam DO [facility] CPT-11698 Level 3 Est. Patient 10:03:07 CDT Perez Mora MD [facility] CPT-40030 Level 3 Est. Patient 19:50:35 TUFTING MACHINE OPERATOR Carlton rich MD [facility] CPT-66759 Level 4 Est. Patient 18:05:01 TUFTING MACHINE OPERATOR Carlton rich MD [facility] CPT-96498 Level 3 Est. Patient 10:45:55 TUFTING MACHINE OPERATOR Hugo Restrepo MD [facility] CPT-90193 Level 3 Est. Patient 14:12:49 CDT Griffin HERNANDEZ [facility] CPT-82756 Level 3 Est. Patient 17:37:24 CDT Carlton rich MD [facility] CPT-52120 Level 3 Est. Patient 16:51:54 CDT Carlton rich MD [facility] CPT-53603 Level 3 Est. Patient 12:18:11 CDT Hugo Restrepo MD [facility] CPT-04628 Level 3 Est. Patient 11:30:25 CDT Marcy crisostomo MD PhD [facility] CPT-14688 Level 3 Est. Patient 12:00:47 TUFTING MACHINE OPERATOR Carlton rich MD [facility] CPT-52601 Level 3 Est. Patient 16:31:06 TUFTING MACHINE OPERATOR Carlton rich MD [facility] CPT-34048 Level 3 Est. Patient 16:23:24 TUFTING MACHINE OPERATOR Ridge tam DO [facility] CPT-95039 Level 3 Est. Patient 12:34:12 CDT Carlton rich MD [facility] CPT-07125 Level 2 Est. Patient 15:43:33 CDT Robi armstrong MD [facility] CPT-63087 Level 4 Est. Patient 14:04:44 CDT Carlton rich MD [facility] CPT-60172 Level 3 Est. Patient 05:47:59 CDT Ridge tam [facility] CPT-90723 Level 3 Est. Patient 13:12:53 TUFTING MACHINE OPERATOR Carlton rich MD [facility] CPT-34168 Level 3 Est. Patient 14:26:53 CDT Hugo [...] CPT-J1100 Decadron 6mg (Dexamethasone) 14:32:13 CDT 2 CPT-08503 Hip bilat min 2V w AP pelvis 13:16:20 CDT 2 CPT-30008 Pelvis only 13:07:33 CDT CPT-84163 Spec Collection and Handling Fee 11:25:12 C DT CPT-44802 Fluzone Quadrivalent Intramuscular Suspe nsion 0.5 ML 14:31:55 CDT CPT-65457 Abx/Therapy Injection 13:28:47 TUFTING MACHINE OPERATOR CPT-J2930 Solu Medrol 125 mg (Methyl Prednisolone Sodium Succinate) 12:00:47 TUFTING MACHINE OPERATOR CPT-20677 Venipuncture Draw Fee 11:33:31 CDT CPT-67929 EKG Trac and Interp 11:21:09 CDT CPT-36109 Chest 2V Frontal and Lat 11:21:09 CDT 12/15 CPT-56268 Venipuncture Draw Fee 08:02:34 CDT CPT-97732 Chest 2V Frontal and Lat 05:47:59 CDT 06/05
--- OUTSIDE RECORDS SUMMARY | 2019-10-08 10:18 | XMS REPORT | Clinical Summary ---
[...] daily x 10 days 20 13/03/08 AMOXICILLIN [id number] No Longer Active Carlton Hu MD Active CHERATUSSIN AC 100-10 MG/5ML SYRP 1 tsp by mouth every 4 hours as needed for cough GUAIFENESIN-CODEINE 09243251936 Active Carlton banks MD Active CYCLOBENZAPRINE HCL 10 MG TABS 1 tablet by mouth BID prn had pain 2 CYCLOBENZAPRINE HCL 00200245246 Active Carlton Hu MD A ctive PROMETHAZINE-CODEINE 6.25-10 MG/5ML SYRP 1 tsp by mouth ever y 8 hours prn cough PROMETHAZINE-CODEINE 60151743889 No Longer Active Robert Hu MD Active MEDROL (REYNA) 4 MG TABS 6 pills x 1 day, then 5 pill s x 1 day then 4 pills x 1 day, then 3 pills x 1 day, then 2 pills x 1 day, then 1 pill x 1 day, then stop METHYLPREDNISOLONE 06681990664 No Longer Active Parris Mora MD Active AZITHROMYCIN 250 MG TABS 2 po qd x 1 day, then 1 po qd x 4 days AZITHROMYCIN 82630598519 No Longer Active Perez Mora MD Active SYMBICORT 160-4.5 MCG/ACT AERO 2 puffs bid with rinse after 2011 BUDESONIDE-FORMOTEROL FUMARATE 84945482184 No Longer Active Perez Mora MD Active LYRICA 75 MG CAPS TAKE 1 CAPSULE BY MOUTH TWICE DAILY 2013 PREGABALIN 82082575467 No Longer Active Carlton Hu MD Active LYRICA 100 MG CAPS Take 1 tab po BID for fibromyalgia PREGABALIN 48280594053 Active Carlton Hu MD Active TOPAMAX 25 MG TABS 1 qHS x 1 week, then 1 BID x 1 week, then 1 qAM and 2 qHS x 1 week, then 2 BID (migraine prevention) TOPIRAMAT E 66669632914 No Longer Active Jerica Goeringer RMA Active TOPAMAX 50 MG TABS take 1 tab po BID for migraines. 12/07/10 TOPIRAMATE 32762401493 No Longer Active Jerica Goeringer RMA Ac tive TOPAMAX 100 MG TABS Take 1 tablet po bid TOPIRAMATE 4999 2941940 Active Carlton Hu MD Active TRIAMCINOLONE ACETONIDE 0.1 % CREA apply three times daily prn r beatrice TRIAMCINOLONE ACETONIDE 27384426815 No Longer Active Carlton Hu MD Active PAXIL 40 MG TAB take 1 tab po qday for depression PAROXETINE HCL 26519399395 Active Carlton Hu MD Active CYMBALTA 30 MG CPEP 1 cap by mouth daily DULOXE SNEHA HCL 98752004793 Active Carlton Hu MD Active CHERATUSSIN AC 100-10 MG/5ML SYRP 5ml po q6hr PRN Cough GUAIFENESIN-CODEINE 31790062894 No Longer Active Carlton Hu MD Active MEDROL (REYNA) 4 MG TABS 6 tabs on day 1, 5 tabs on d ay 2, 4 tabs on day 3, 3 tabs on day 4, 2 tabs on day 5, 1 tab on day 6 METHYLPREDNISOLONE 55926443985 No Longer Active Perez Mora MD Active AZITHROMYCIN 250 MG TABS 2 po qd x 1 day, then 1 po qd x 4 days AZITHROMYCIN 48005627550 No Longer Active Perez Mora MD Active PROPRANOLOL HCL 60 MG TABS 1 PO Q D PROPRANOL OL HCL 55571847481 No Longer Active Perez Mora MD Active CHERATUSSIN AC 100-10 MG/5ML SYRP take one tsp po Q 6hours prn c ough GUAIFENESIN-CODEINE 46148333313 No Longer Active Perez Means Active AUGMENTIN 875-125 MG TAB 1 tab by mouth twice daily with food 12/03/31 AMOXICILLIN-POT CLAVULANATE 55505166935 No Longer Active Chanel Mora MD Active CHERATUSSIN AC 100-10 MG/5ML SYRP 1 tsp by mouth every 4 hours as needed for cough GUAIFENESIN-CODEINE 74896961142 No Longer Activ e Hugo Restrepo MD Active ACETAMINOPHEN-CODEINE #3 300-30 MG TABS 1 PO Q 4-6 HRS PRN PAIN ACETAMINOPHEN-CODEINE 18598672501 No Longer Active Hugo Restrepo MD Active LEVAQUIN 500 MG TABS take one po QD LEVOFLOXACI N 92323409221 No Longer Active Griffin HERNANDEZ Active PREDNISONE 20 MG TAB Take 3 tabs daily for 3 days , 2 tabs daily for 3 days, 1 tab daily for 3 days, 1/2 tab daily for 3 days P REDNISONE 92216424714 No Longer Active Carlton Hu MD Active AVELOX 400 MG TABS 1 tab by mouth daily MOXIFLO XACIN HCL 90076036336 No Longer Active Carlton Hu MD Active CHERATUSSIN AC 100-10 MG/5ML SYRP 1 tsp by mouth every 4 hours as needed for cough GUAIFENESIN-CODEINE 67208497084 No Longer Activ e Hugo Restrepo MD Active AVELOX 400 MG TABS 1 tab by mouth daily MOXIFLO XACIN HCL 28804832487 No Longer Active Marcy De La Rosa MD PhD Active TERBINAFINE HCL 250 MG TABS 1 qDay TERBINAF INE HCL 71118029651 No Longer Active Marcy De La Rosa MD PhD Active CHERATUSSIN AC 100-10 MG/5ML SYRP 1 tsp by mouth every 4 hours as needed for cough GUAIFENESIN-CODEINE 01665497409 No Longer Activ e Marcy De La Rosa MD PhD Active AVELOX 400 MG TABS 1 tab by mouth daily MOXIFLO XACIN HCL 37719468022 No Longer Active Marcy De La Rosa MD PhD Active HYDROCODONE-ACETAMINOPHEN 5-325 MG TABS 1 po q 6hr PRN cough 201 05/09/16 HYDROCODONE-ACETAMINOPHEN 21802754133 No Longer Active Marcy De La Rosa MD PhD Active PREDNISONE 20 MG TAB 2 tabs daily for 3 days, 1 t ab daily for 3 days, 1/2 tab daily for 2 days PREDNISONE 23334582028 No Longer Active Carlton Hu MD Active CEFDINIR 300 MG CAPS by mouth twice a day CEFDI ODILIA 96849181895 No Longer Active Carlton Hu MD Active ZOCOR 40 MG TAB 1 tab by mouth daily SIMVASTATIN 72641482389 Active Carlton Hu MD Active HYDROCHLOROTHIAZIDE 25 MG TABS 1 TAB PO DAILY H YDROCHLOROTHIAZIDE 83705760316 Active Carlton Hu MD Active ACETAMINOPHEN-CODEINE #3 300-30 MG TABS 1 tablet po q 4-6hrs prn pain ACETAMINOPHEN-CODEINE 87393689169 No Longer Active Ridge Bess DO Active ZITHROMAX 250 MG TAB 2 po today, then 1 po q days 2-5 AZITHROMYCIN 48481260270 No Longer Active Carlton Hu MD Acti ve CHERATUSSIN AC 100-10 MG/5ML SYRP take 1 tsp po q4-6 hours prn c ough GUAIFENESIN-CODEINE 88868772523 No Longer Active Carlton Hu MD Active ACETAMINOPHEN-CODEINE #3 300-30 MG TABS 1 PO Q 4-6 HR PRN PAIN 2 ACETAMINOPHEN-CODEINE 01439147922 No Longer Active Carlton rich MD Active LORTAB 7.5-500 MG/15ML ELIX 7.5 ml po q 4 hour prn cough HYDROCODONE-ACETAMINOPHEN 00595450160 No Longer Active Carlton Hu MD Active PREDNISONE 20 MG TAB 1 po bid 3 days, then 1 po q day 3 days 201 05/03/07 PREDNISONE 33517355917 No Longer Active Carlton Hu MD Active ELMIRON 100 MG CAPS 2 tablets in the am and 1 tablet at hs PENTOSAN POLYSULFATE SODIUM 77445775924 Active Gracie Moreno Active CEFDINIR 300 MG CAPS by mouth twice a day CEFDI ODILIA 65726498434 No Longer Active Carlton Hu MD Active CEFDINIR 300 MG CAPS by mouth twice a day CEFDI ODILIA 73898819157 No Longer Active Carlton Hu MD Active CEFDINIR 300 MG CAPS by mouth twice a day CEFDI ODILIA 77190338174 No Longer Active Carlton Hu MD Active TESSALON PERLES 100 MG CAP 1 tablet by mouth 3 times daily a s needed for cough BENZONATATE 23104836764 No Longer Active Carlton bustamante MD Active CEFDINIR 300 MG CAPS by mouth twice a day CEFDI ODILIA 39489270021 No Longer Active Carlton Hu MD Active ZITHROMAX Z-REYNA 250 MG TABS 2 today, then 1 daily for 4 days 201 04/09/17 AZITHROMYCIN 67883173893 No Longer Active Hugo Restrepo MD Active PREMARIN 0.625 MG TABS TAKE 1 TAB BY MOUTH DAILY ESTROGENS CONJUGATED 73677816127 Active Carlton Hu MD Active TESSALON PERLES 100 MG CAP 1 tablet by mouth 3 times daily a s needed for cough TESSALON PERLES 100 MG CAP 541877 BENZONATATE I nactive PREDNISONE 20 MG TAB 1 po bid 3 days, then 1 po q day 3 days 201 05/03/07 PREDNISONE 20 MG TAB 313825 PREDNISONE Inactive LORTAB 7.5-500 MG/15ML ELIX 7.5 ml po q 4 hour prn cough LORTAB 7.5-500 MG/15ML ELIX HYDROCODONE-ACETAMINOPHEN Inacti ve ACETAMINOPHEN-CODEINE #3 300-30 MG TABS 1 PO Q 4-6 HR PRN PAIN 2 ACETAMINOPHEN-CODEINE #3 300-30 MG TABS 307225 ACETAMIN OPHEN-CODEINE Inactive CHERATUSSIN AC 100-10 MG/5ML SYRP take 1 tsp po q4-6 hours prn c ough CHERATUSSIN AC 100-10 MG/5ML SYRP 652970 GUAIFENESIN-CO DEINE Inactive ACETAMINOPHEN-CODEINE #3 300-30 MG TABS 1 tablet po q 4-6hrs prn pain ACETAMINOPHEN-CODEINE #3 300-30 MG TABS 801149 ACETAMIN OPHEN-CODEINE Inactive HYDROCODONE-ACETAMINOPHEN 5-325 MG TABS 1 po q 6hr PRN cough 201 05/09/16 HYDROCODONE-ACETAMINOPHEN 5-325 MG TABS 429417 HYDROCODONE-ACETAMINOPHEN Inactive AVELOX 400 MG TABS 1 tab by mouth daily A VELOX 400 MG TABS 867531 MOXIFLOXACIN HCL Inactive CHERATUSSIN AC 100-10 MG/5ML SYRP 1 tsp by mouth every 4 hours as needed for cough CHERATUSSIN AC 100-10 MG/5ML SYRP 896627 GUAIFENESIN-CODEINE Inactive TERBINAFINE HCL 250 MG TABS 1 qDay TERBINAFINE HCL 250 MG TABS 173945 TERBINAFINE HCL Inactive CHERATUSSIN AC 100-10 MG/5ML SYRP 1 tsp by mouth every 4 hours as needed for cough CHERATUSSIN AC 100-10 MG/5ML SYRP 620375 GUAIFENESIN-CODEINE Inactive ACETAMINOPHEN-CODEINE #3 300-30 MG TABS 1 PO Q 4-6 HRS PRN PAIN ACETAMINOPHEN-CODEINE #3 300-30 MG TABS 184389 ACETAMINOPHEN-CODEIN E Inactive CHERATUSSIN AC 100-10 MG/5ML SYRP 1 tsp by mouth every 4 hours as needed for cough CHERATUSSIN AC 100-10 MG/5ML SYRP 197429 GUAIFENESIN-CODEINE Inactive AUGMENTIN 875-125 MG TAB 1 tab by mouth twice daily with food 20 12/03/31 AUGMENTIN 875-125 MG TAB 106581 AMOXICILLIN-POT CLAVULA EFE Inactive CHERATUSSIN AC 100-10 MG/5ML SYRP take one tsp po Q 6hours prn c ough CHERATUSSIN AC 100-10 MG/5ML SYRP 637020 GUAIFENESIN-CO DEINE Inactive PROPRANOLOL HCL 60 MG TABS 1 PO Q D P ROPRANOLOL HCL 60 MG TABS 094204 PROPRANOLOL HCL Inactive TOPAMAX 50 MG TABS take 1 tab po BID for migraines. 20 12/07/10 TOPAMAX 50 MG TABS 214010 TOPIRAMATE Inactive TOPAMAX 25 MG TABS 1 qHS x 1 week, then 1 BID x 1 week, then 1 qAM and 2 qHS x 1 week, then 2 BID (migraine prevention) TOPAMAX 2 5 MG TABS 753420 TOPIRAMATE Inactive LYRICA 75 MG CAPS TAKE 1 CAPSULE BY MOUTH TWICE DAILY LYRICA 75 MG CAPS PREGABALIN Inactive SYMBICORT 160-4.5 MCG/ACT AERO 2 puffs bid with rinse after 2011 SYMBICORT 160-4.5 MCG/ACT AERO BUDESONIDE-FORMOT SÁNCHEZ FUMARATE Inactive PROMETHAZINE-CODEINE 6.25-10 MG/5ML SYRP 1 tsp by mouth ever y 8 hours prn cough PROMETHAZINE-CODEINE 6.25-10 MG/5ML SYRP 954036 PROMETHAZINE-CODEINE Inactive ZITHROMAX Z-REYNA 250 MG TABS 2 today, then 1 daily for 4 days 201 04/09/17 ZITHROMAX Z-REYNA 250 MG TABS 9491929 AZITHROMYCIN Inac tive CEFDINIR 300 MG CAPS by mouth twice a day CEFDINIR 300 MG CAPS 176902 CEFDINIR Inactive CEFDINIR 300 MG CAPS by mouth twice a day CEFDINIR 300 MG CAPS 20020704 CEFDINIR Inactive CEFDINIR 300 MG CAPS by mouth twice a day CEFDINIR 300 MG CAPS 20020704 CEFDINIR Inactive CEFDINIR 300 MG CAPS by mouth twice a day CEFDINIR 300 MG CAPS 400191 CEFDINIR Inactive ZITHROMAX 250 MG TAB 2 po today, then 1 po q days 2-5 ZITHROMAX 250 MG TAB 2533186 AZITHROMYCIN Inactive CEFDINIR 300 MG CAPS by mouth twice a day CEFDINIR 300 MG CAPS 20020704 CEFDINIR Inactive PREDNISONE 20 MG TAB 2 tabs daily for 3 days, 1 t ab daily for 3 days, 1/2 tab daily for 2 days PREDNISONE 20 MG TAB 430376 PREDNISON E Inactive AVELOX 400 MG TABS 1 tab by mouth daily A VELOX 400 MG TABS 128389 MOXIFLOXACIN HCL Inactive AVELOX 400 MG TABS 1 tab by mouth daily A VELOX 400 MG TABS 399224 MOXIFLOXACIN HCL Inactive PREDNISONE 20 MG TAB Take 3 tabs daily for 3 days , 2 tabs daily for 3 days, 1 tab daily for 3 days, 1/2 tab daily for 3 days PREDNISONE 20 MG TAB 160553 PREDNISONE Inactive LEVAQUIN 500 MG TABS take one po QD LEVAQUIN 50 0 MG TABS 476654 LEVOFLOXACIN Inactive AZITHROMYCIN 250 MG TABS 2 po qd x 1 day, then 1 po qd x 4 days AZITHROMYCIN 250 MG TABS 2645014 AZITHROMYCIN Inactiv e MEDROL (REYNA) 4 MG TABS 6 tabs on day 1, 5 tabs on d ay 2, 4 tabs on day 3, 3 tabs on day 4, 2 tabs on day 5, 1 tab on day 6 MEDROL (REYNA) 4 MG TABS METHYLPREDNISOLONE Inactive CHERATUSSIN AC 100-10 MG/5ML SYRP 5ml po q6hr PRN Cough CHERATUSSIN AC 100-10 MG/5ML SYRP 647866 GUAIFENESIN-CODEINE Inacti ve TRIAMCINOLONE ACETONIDE 0.1 % CREA apply three times daily prn r beatrice TRIAMCINOLONE ACETONIDE 0.1 % CREA 1564622 TRIAMCINOLONE ACETONIDE Inactive AZITHROMYCIN 250 MG TABS 2 po qd x 1 day, then 1 po qd x 4 days AZITHROMYCIN 250 MG TABS 1304275 AZITHROMYCIN Inactiv e MEDROL (REYNA) 4 MG [...] days 20 13/03/08 AMOXICILLIN 500 MG CAP 975907 AMOXICILLIN Inactive Vital Signs Date Name Value [...] - 3141-9 128.44 [lb_av] Weigh t Measured blood pressure, diastolic - 8462-4 74 mm[Hg] BP srinivasan blood pressure, systolic - 8480-6 115 mm[Hg] BP sys height E&M - 8302-2 53 [in_us] Bdy h eight pulse rate E&M - 8867-4 79 /min H eart rate temperature E&M 97.6 [degF] Body temp erature weight E&M - 3141-9 151 [lb_av] Weigh t Measured blood pressure, diastolic - 8462-4 84 mm[Hg] BP srinivasan blood pressure, systolic - 8480-6 130 mm[Hg] BP sys height E&M - 8302-2 53 [in_us] Bdy h eight pulse rate E&M - 8867-4 114 /min H eart rate weight E&M - 3141-9 149 [lb_av] Weigh t Measured Diagnostic Results Date Name Value Unit Range Description Lab Report: CBC, Comp. Metabolic Panel, Lipid Panel, Thyroid Stimulating ... - Chemistry sodium, serum 143 mmol/L 016-221 9685/01/24 potassium, serum 4.1 mmol/L 3.5-5.2 chloride, serum 102 mmol/L 98-107 carbon dioxide, venous blood 35.9 mmol/L 21.0-32 .0 blood glucose 95 mg/dL 65-110 urea nitrogen, blood 15 mg/dL 7-18 creatinine, serum 1.00 mg/dL 0.60-1.30 alanine aminotransferase (SGPT), serum 32 U/L 12-78 aspartate aminotransferase (SGOT), serum 16 U/L 15-37 alkaline phosphatase, serum 113 U/L 50-136 calcium, serum 9.5 mg/dL 8.5-10.1 bilirubin, serum, total 0.60 mg/dL 0.00-1.00 cholesterol, serum 227 mg/dL 540-210 1372/01/24 triglyceride, serum, fasting 97 mg/dL 30-200 HDL cholesterol, serum 65 mg/dL 32-96 LDL cholesterol, serum 143 mg/dL 0-130 TSH 1.27 m[iU]/mL 0.36-3.74 Lab Report: CBC, Comp. Metabolic Panel, Lipid Panel, Thyroid Stimulating ... - Hematology leukocyte count, blood 4.3 10^3/MM^3 10*3/mm3 4.6-10.2 erythrocyte (RBC) count 4.80 10^6/MM^3 10*6/mm3 4.04-5.4 8 hemoglobin, blood 14.8 g/dL 12.0-16.0 hematocrit, blood 43.6 % 36.0-46.0 mean corpuscular volume, RBC 91 fL 80-97 mean corpuscular hemoglobin, RBC 30.8 pg 27. 0-31.2 mean corpuscular hemoglobin concentration, RBC 33.9 G/DL % 31.8-35.4 red blood cell distribution width 13.9 % 11 .6-14.8 platelet count 454 Verified By Repeat Analysis 10^3/mm ^3 10*3/mm3 142-424 Lab Report: Erythrocyte Sed Rate, CBC - [...] .6-14.8 platelet count 371 10^3/MM^3 10*3/mm3 142-424 Office Visit: Check meds and labs - Chem istry cholesterol, target level 200 mg/dL LDL target level 160 mg/dL HDL cholesterol, serum, target level 40 mg/dL triglyceride, target level 150 mg/dL Encounters Code Encounter Date Provider Facility CPT-08634 Level 3 Est. Patient 10:03:07 CDT Perez Mora MD [facility] CPT-47542 Level 3 Est. Patient 19:50:35 PROCESS ARCHITECT Carlton rich MD [facility] CPT-13854 Level 4 Est. Patient 18:05:01 PROCESS ARCHITECT Carlton rich MD [facility] CPT-02987 Level 3 Est. Patient 10:45:55 PROCESS ARCHITECT Hugo Restrepo MD [facility] CPT-13842 Level 3 Est. Patient 14:12:49 CDT Griffin HERNANDEZ [facility]-34048 Level 3 Est. Patient 17:37:24 CDT Carlton rich MD [facility]-86044 Level 3 Est. Patient 16:51:54 CDT Carlton rich MD [facility]-40766 Level 3 Est. Patient 12:18:11 CDT Hugo Restrepo MD [facility]-77932 Level 3 Est. Patient 11:30:25 CDT Marcy crisostomo MD PhD [facility]-14448 Level 3 Est. Patient 12:00:47 PROCESS ARCHITECT Carlton rich MD [facility]-79252 Level 3 Est. Patient 16:31:06 PROCESS ARCHITECT Carlton rich MD [facility] CPT-66073 Level 3 Est. Patient 16:23:24 PROCESS ARCHITECT Ridge tam [facility] CPT-85752 Level 3 Est. Patient 12:34:12 CDT Carlton rich MD [facility] CPT-44536 Level 2 Est. Patient 15:43:33 CDT Robi armstrong MD [facility]-20295 Level 4 Est. Patient 14:04:44 CDT Carlton rich MD [facility]-86195 Level 3 Est. Patient 05:47:59 CDT Ridge tam [facility] CPT-59770 Level 3 Est. Patient 13:12:53 PROCESS ARCHITECT Carlton rich MD [facility]-36871 Level 3 Est. Patient 14:26:53 CDT Hugo Restrepo MD [facility] Procedures Code Procedure Name Date Entry Date Standard Desc ription CPT-70038 Fluzone Quadrivalent Intramuscular Suspe nsion 0.5 ML 14:31:55 CDT CPT-93718 Abx/Therapy Injection 13:28:47 PROCESS ARCHITECT CPT-J2930 Solu Medrol 125 mg (Methyl Prednisolone Sodium Succinate) 12:00:47 PROCESS ARCHITECT CPT-45993 Venipuncture Draw Fee 11:33:31 CDT CPT-90259 EKG Trac and Interp 11:21:09 CDT CPT-13063 Chest 2V Frontal and Lat 11:21:09 CDT 12/15 CPT-05141 Venipuncture Draw Fee 08:02:34 CDT CPT-60539 Chest 2V Frontal and Lat 05:47:59 CDT 06/05
--- OUTSIDE RECORDS SUMMARY | 2019-10-08 10:18 | XMS REPORT | Clinical Summary ---
Author Author Caitlin, Juliana Martinez Organization [facility] Address Unknown Phone Unavailable Allergies, Adverse Reactions, Alerts Allergy Name Reaction Description Start Date Severity Status Pr ovider No Known Allergies Nakul Nicolas A Conditions or Problems Problem Name Problem Code [...] sinusitis (chronic) HEALTH SCREENING V70.0 Active Carlton uH MD Routine general medical examination at a [...] Generic Name NDC Status Provider Patient Instruction CYCLOBENZAPRINE HCL 10 MG TABS 1 tablet by mouth BID prn had pain 2 CYCLOBENZAPRINE HCL [id number] Active Carlton Hu MD A ctive PROMETHAZINE-CODEINE 6.25-10 MG/5ML SYRP 1 tsp by mouth ever y 8 hours prn cough PROMETHAZINE-CODEINE [id number] No Longer Active Robert Hu MD Active MEDROL (REYNA) 4 MG TABS 6 pills x 1 day, then 5 pill s x 1 day then 4 pills x 1 day, then 3 pills x 1 day, then 2 pills x 1 day, then 1 pill x 1 day, then stop METHYLPREDNISOLONE 81661466953 No Longer Active Parris Mroa MD Active AZITHROMYCIN 250 MG TABS 2 po qd x 1 day, then 1 po qd x 4 days AZITHROMYCIN 83086646318 No Longer Active Perez Mora MD Active SYMBICORT 160-4.5 MCG/ACT AERO 2 puffs bid with rinse after 2011 BUDESONIDE-FORMOTEROL FUMARATE [id number] No Longer Active Perez Mora MD Active LYRICA 75 MG CAPS TAKE 1 CAPSULE BY MOUTH TWICE DAILY 2013 PREGABALIN 01406860190 No Longer Active Carlton Hu MD Active LYRICA 100 MG CAPS Take 1 tab po BID for fibromyalgia PREGABALIN 85804968337 Active Carlton Hu MD Active TOPAMAX 25 MG TABS 1 qHS x 1 week, then 1 BID x 1 week, then 1 qAM and 2 qHS x 1 week, then 2 BID (migraine prevention) TOPIRAMAT E 93258978271 No Longer Active Jerica FUENTES Active TOPAMAX 50 MG TABS take 1 tab po BID for migraines. 12/07/10 TOPIRAMATE 33884743612 No Longer Active Jerica FUENTES Ac tive TOPAMAX 100 MG TABS Take 1 tablet po bid TOPIRAMATE 4999 4069191 Active Carlton Hu MD Active TRIAMCINOLONE ACETONIDE 0.1 % CREA apply three times daily prn r beatrice TRIAMCINOLONE ACETONIDE 93564748994 No Longer Active Carlton Hu MD Active PAXIL 40 MG TAB take 1 tab po qday for depression PAROXETINE HCL 99292352054 Active Carlton Hu MD Active CYMBALTA 30 MG CPEP 1 cap by mouth daily DULOXE SNEHA HCL 68081616330 Active Carlton Hu MD Active CHERATUSSIN AC 100-10 MG/5ML SYRP 5ml po q6hr PRN Cough GUAIFENESIN-CODEINE 79970724975 No Longer Active Carlton Hu MD Active MEDROL (REYNA) 4 MG TABS 6 tabs on day 1, 5 tabs on d ay 2, 4 tabs on day 3, 3 tabs on day 4, 2 tabs on day 5, 1 tab on day 6 METHYLPREDNISOLONE 34934782934 No Longer Active Perez Mora MD Active AZITHROMYCIN 250 MG TABS 2 po qd x 1 day, then 1 po qd x 4 days AZITHROMYCIN 28135998328 No Longer Active Perez Mora MD Active PROPRANOLOL HCL 60 MG TABS 1 PO Q D PROPRANOL OL HCL 83500374452 No Longer Active Perez Mora MD Active CHERATUSSIN AC 100-10 MG/5ML SYRP take one tsp po Q 6hours prn c ough GUAIFENESIN-CODEINE 95081574486 No Longer Active Perez Means Active AUGMENTIN 875-125 MG TAB 1 tab by mouth twice daily with food 20 12/03/31 AMOXICILLIN-POT CLAVULANATE 51284611182 No Longer Active Chanel Mora MD Active CHERATUSSIN AC 100-10 MG/5ML SYRP 1 tsp by mouth every 4 hours as needed for cough GUAIFENESIN-CODEINE 59930075329 No Longer Activ e Hugo Restrepo MD Active ACETAMINOPHEN-CODEINE #3 300-30 MG TABS 1 PO Q 4-6 HRS PRN PAIN ACETAMINOPHEN-CODEINE 18509722714 No Longer Active Hugo Restrepo MD Active LEVAQUIN 500 MG TABS take one po QD LEVOFLOXACI N 28946227228 No Longer Active Griffin HERNANDEZ Active PREDNISONE 20 MG TAB Take 3 tabs daily for 3 days , 2 tabs daily for 3 days, 1 tab daily for 3 days, 1/2 tab daily for 3 days P REDNISONE 11593908637 No Longer Active Carlton Hu MD Active AVELOX 400 MG TABS 1 tab by mouth daily MOXIFLO XACIN HCL 32425559633 No Longer Active Carlton Hu MD Active CHERATUSSIN AC 100-10 MG/5ML SYRP 1 tsp by mouth every 4 hours as needed for cough GUAIFENESIN-CODEINE 79182147231 No Longer Activ e Hugo Restrepo MD Active AVELOX 400 MG TABS 1 tab by mouth daily MOXIFLO XACIN HCL 53894697117 No Longer Active Marcy De La Rosa MD PhD Active TERBINAFINE HCL 250 MG TABS 1 qDay TERBINAF INE HCL 56444507971 No Longer Active Marcy De La Rosa MD PhD Active CHERATUSSIN AC 100-10 MG/5ML SYRP 1 tsp by mouth every 4 hours as needed for cough GUAIFENESIN-CODEINE 43814298117 No Longer Activ e Marcy De La Rosa MD PhD Active AVELOX 400 MG TABS 1 tab by mouth daily MOXIFLO XACIN HCL 00344416478 No Longer Active Marcy De La Rosa MD PhD Active HYDROCODONE-ACETAMINOPHEN 5-325 MG TABS 1 po q 6hr PRN cough 201 05/09/16 HYDROCODONE-ACETAMINOPHEN 98192051325 No Longer Active Marcy De La Rosa MD PhD Active PREDNISONE 20 MG TAB 2 tabs daily for 3 days, 1 t ab daily for 3 days, 1/2 tab daily for 2 days PREDNISONE 12961015139 No Longer Active Carlton Hu MD Active CEFDINIR 300 MG CAPS by mouth twice a day CEFDI ODILIA 02247790851 No Longer Active Carlton Hu MD Active ZOCOR 40 MG TAB 1 tab by mouth daily SIMVASTATIN 74428359879 Active Carlton Hu MD Active HYDROCHLOROTHIAZIDE 25 MG TABS 1 TAB PO DAILY H YDROCHLOROTHIAZIDE 23941872266 Active Carlton Hu MD Active ACETAMINOPHEN-CODEINE #3 300-30 MG TABS 1 tablet po q 4-6hrs prn pain ACETAMINOPHEN-CODEINE 61487632926 No Longer Active Ridge Bess DO Active ZITHROMAX 250 MG TAB 2 po today, then 1 po q days 2-5 AZITHROMYCIN 39697394078 No Longer Active Carlton Hu MD Acti ve CHERATUSSIN AC 100-10 MG/5ML SYRP take 1 tsp po q4-6 hours prn c ough GUAIFENESIN-CODEINE 40470952059 No Longer Active Carlton Hu MD Active ACETAMINOPHEN-CODEINE #3 300-30 MG TABS 1 PO Q 4-6 HR PRN PAIN 2 ACETAMINOPHEN-CODEINE 34351838569 No Longer Active Carlton rich MD Active LORTAB 7.5-500 MG/15ML ELIX 7.5 ml po q 4 hour prn cough HYDROCODONE-ACETAMINOPHEN 89962636501 No Longer Active Carlton Hu MD Active PREDNISONE 20 MG TAB 1 po bid 3 days, then 1 po q day 3 days 201 05/03/07 PREDNISONE 46507463465 No Longer Active Carlton Hu MD Active ELMIRON 100 MG CAPS 2 tablets in the am and 1 tablet at hs PENTOSAN POLYSULFATE SODIUM 58673309695 Active Gracie Houston Active CEFDINIR 300 MG CAPS by mouth twice a day CEFDI ODILIA 47036987832 No Longer Active Carlton Hu MD Active CEFDINIR 300 MG CAPS by mouth twice a day CEFDI ODILIA 55208961015 No Longer Active Carlton Hu MD Active CEFDINIR 300 MG CAPS by mouth twice a day CEFDI ODILIA 90401759296 No Longer Active Carlton Hu MD Active TESSALON PERLES 100 MG CAP 1 tablet by mouth 3 times daily a s needed for cough BENZONATATE 34068010699 No Longer Active Carlton bustamante MD Active CEFDINIR 300 MG CAPS by mouth twice a day CEFDI ODILIA 90119957444 No Longer Active Carlton Hu MD Active ZITHROMAX Z-REYNA 250 MG TABS 2 today, then 1 daily for 4 days 201 04/09/17 AZITHROMYCIN 09972384593 No Longer Active Hugo Restrepo MD Active PREMARIN 0.625 MG TABS TAKE 1 TAB BY MOUTH DAILY ESTROGENS CONJUGATED 79815883558 Active Carlton Hu MD Active TESSALON PERLES 100 MG CAP 1 tablet by mouth 3 times daily a s needed for cough TESSALON PERLES 100 MG CAP 162579 BENZONATATE I nactive PREDNISONE 20 MG TAB 1 po bid 3 days, then 1 po q day 3 days 201 05/03/07 PREDNISONE 20 MG TAB 217791 PREDNISONE Inactive LORTAB 7.5-500 MG/15ML ELIX 7.5 ml po q 4 hour prn cough LORTAB 7.5-500 MG/15ML ELIX HYDROCODONE-ACETAMINOPHEN Inacti ve ACETAMINOPHEN-CODEINE #3 300-30 MG TABS 1 PO Q 4-6 HR PRN PAIN 2 ACETAMINOPHEN-CODEINE #3 300-30 MG TABS 142243 ACETAMIN OPHEN-CODEINE Inactive CHERATUSSIN AC 100-10 MG/5ML SYRP take 1 tsp po q4-6 hours prn c ough CHERATUSSIN AC 100-10 MG/5ML SYRP 001053 GUAIFENESIN-CO DEINE Inactive ACETAMINOPHEN-CODEINE #3 300-30 MG TABS 1 tablet po q 4-6hrs prn pain ACETAMINOPHEN-CODEINE #3 300-30 MG TABS 461756 ACETAMIN OPHEN-CODEINE Inactive HYDROCODONE-ACETAMINOPHEN 5-325 MG TABS 1 po q 6hr PRN cough 201 05/09/16 HYDROCODONE-ACETAMINOPHEN 5-325 MG TABS 565628 HYDROCODONE-ACETAMINOPHEN Inactive AVELOX 400 MG TABS 1 tab by mouth daily A VELOX 400 MG TABS 953281 MOXIFLOXACIN HCL Inactive CHERATUSSIN AC 100-10 MG/5ML SYRP 1 tsp by mouth every 4 hours as needed for cough CHERATUSSIN AC 100-10 MG/5ML SYRP 243880 GUAIFENESIN-CODEINE Inactive TERBINAFINE HCL 250 MG TABS 1 qDay TERBINAFINE HCL 250 MG TABS 306644 TERBINAFINE HCL Inactive CHERATUSSIN AC 100-10 MG/5ML SYRP 1 tsp by mouth every 4 hours as needed for cough CHERATUSSIN AC 100-10 MG/5ML SYRP 709863 GUAIFENESIN-CODEINE Inactive ACETAMINOPHEN-CODEINE #3 300-30 MG TABS 1 PO Q 4-6 HRS PRN PAIN ACETAMINOPHEN-CODEINE #3 300-30 MG TABS 833767 ACETAMINOPHEN-CODEIN E Inactive CHERATUSSIN AC 100-10 MG/5ML SYRP 1 tsp by mouth every 4 hours as needed for cough CHERATUSSIN AC 100-10 MG/5ML SYRP 408583 GUAIFENESIN-CODEINE Inactive AUGMENTIN 875-125 MG TAB 1 tab by mouth twice daily with food 20 12/03/31 AUGMENTIN 875-125 MG TAB 033746 AMOXICILLIN-POT CLAVULA EFE Inactive CHERATUSSIN AC 100-10 MG/5ML SYRP take one tsp po Q 6hours prn c ough CHERATUSSIN AC 100-10 MG/5ML SYRP 464256 GUAIFENESIN-CO DEINE Inactive PROPRANOLOL HCL 60 MG TABS 1 PO Q D P ROPRANOLOL HCL 60 MG TABS 682066 PROPRANOLOL HCL Inactive TOPAMAX 50 MG TABS take 1 tab po BID for migraines. 12/07/10 TOPAMAX 50 MG TABS 344677 TOPIRAMATE Inactive TOPAMAX 25 MG TABS 1 qHS x 1 week, then 1 BID x 1 week, then 1 qAM and 2 qHS x 1 week, then 2 BID (migraine prevention) TOPAMAX 2 5 MG TABS 122942 TOPIRAMATE Inactive LYRICA 75 MG CAPS TAKE 1 CAPSULE BY MOUTH TWICE DAILY LYRICA 75 MG CAPS PREGABALIN Inactive SYMBICORT 160-4.5 MCG/ACT AERO 2 puffs bid with rinse after 2011 SYMBICORT 160-4.5 MCG/ACT AERO BUDESONIDE-FORMOT SÁNCHEZ FUMARATE Inactive PROMETHAZINE-CODEINE 6.25-10 MG/5ML SYRP 1 tsp by mouth ever y 8 hours prn cough PROMETHAZINE-CODEINE 6.25-10 MG/5ML SYRP 864806 PROMETHAZINE-CODEINE Inactive ZITHROMAX Z-REYNA 250 MG TABS 2 today, then 1 daily for 4 days 201 04/09/17 ZITHROMAX Z-REYNA 250 MG TABS 7783659 AZITHROMYCIN Inac tive CEFDINIR 300 MG CAPS by mouth twice a day CEFDINIR 300 MG CAPS 20020704 CEFDINIR Inactive CEFDINIR 300 MG CAPS by mouth twice a day CEFDINIR 300 MG CAPS 069573 CEFDINIR Inactive CEFDINIR 300 MG CAPS by mouth twice a day CEFDINIR 300 MG CAPS 709725 CEFDINIR Inactive CEFDINIR 300 MG CAPS by mouth twice a day CEFDINIR 300 MG CAPS 513405 CEFDINIR Inactive ZITHROMAX 250 MG TAB 2 po today, then 1 po q days 2-5 ZITHROMAX 250 MG TAB 1848490 AZITHROMYCIN Inactive CEFDINIR 300 MG CAPS by mouth twice a day CEFDINIR 300 MG CAPS 20020704 CEFDINIR Inactive PREDNISONE 20 MG TAB 2 tabs daily for 3 days, 1 t ab daily for 3 days, 1/2 tab daily for 2 days PREDNISONE 20 MG TAB 012295 PREDNISON E Inactive AVELOX 400 MG TABS 1 tab by mouth daily A VELOX 400 MG TABS 904510 MOXIFLOXACIN HCL Inactive AVELOX 400 MG TABS 1 tab by mouth daily A VELOX 400 MG TABS 806564 MOXIFLOXACIN HCL Inactive PREDNISONE 20 MG TAB Take 3 tabs daily for 3 days , 2 tabs daily for 3 days, 1 tab daily for 3 days, 1/2 tab daily for 3 days PREDNISONE 20 MG TAB 758868 PREDNISONE Inactive LEVAQUIN 500 MG TABS take one po QD LEVAQUIN 50 0 MG TABS 391098 LEVOFLOXACIN Inactive AZITHROMYCIN 250 MG TABS 2 po qd x 1 day, then 1 po qd x 4 days AZITHROMYCIN 250 MG TABS 7622038 AZITHROMYCIN Inactiv e MEDROL (REYNA) 4 MG TABS 6 tabs on day 1, 5 tabs on d ay 2, 4 tabs on day 3, 3 tabs on day 4, 2 tabs on day 5, 1 tab on day 6 MEDROL (REYNA) 4 MG TABS METHYLPREDNISOLONE Inactive CHERATUSSIN AC 100-10 MG/5ML SYRP 5ml po q6hr PRN Cough CHERATUSSIN AC 100-10 MG/5ML SYRP 865755 GUAIFENESIN-CODEINE Inacti ve TRIAMCINOLONE ACETONIDE 0.1 % CREA apply three times daily prn r beatrice TRIAMCINOLONE ACETONIDE 0.1 % CREA 9210878 TRIAMCINOLONE ACETONIDE Inactive AZITHROMYCIN 250 MG TABS 2 po qd x 1 day, then 1 po qd x 4 days AZITHROMYCIN 250 MG TABS 8717484 AZITHROMYCIN Inactiv e MEDROL (REYNA) 4 MG TABS 6 pills x 1 day, then 5 pill s x 1 day then 4 pills x 1 day, then 3 pills x 1 day, then 2 pills x 1 day, then 1 pill x 1 day, then stop MEDROL (REYNA) 4 MG TABS METHYLPREDNISOLONE Inactive Vital Signs Date Name Value Unit Range Description blood pressure, diastolic 80 mm[Hg] BP srinivasan blood pressure, systolic 121 mm[Hg] BP sys pulse rate E&M 87 /min Heart rate temperature E&M 97.1 [degF] Body temp erature weight E&M 128.44 [lb_av] Weight Measure d blood pressure, diastolic 74 mm[Hg] BP srinivasan blood pressure, systolic 115 mm[Hg] BP sys height E&M 53 [in_us] Bdy height pulse rate E&M 79 /min Heart rate temperature E&M 97.6 [degF] Body temp erature weight E&M 151 [lb_av] Weight Measure d blood pressure, diastolic 84 mm[Hg] BP srinivasan blood pressure, systolic 130 mm[Hg] BP sys height E&M 53 [in_us] Bdy height pulse rate E&M 114 /min Heart rate weight E&M 149 [lb_av] Weight Measure d blood pressure, diastolic 70 mm[Hg] BP srinivasan blood pressure, systolic 105 mm[Hg] BP sys height E&M 53 [in_us] Bdy height pulse rate E&M 84 /min Heart rate temperature E&M 97.8 [degF] Body temp erature weight E&M 151.19 [lb_av] Weight Measure d blood pressure, diastolic 68 mm[Hg] BP srinivasan blood pressure, systolic 104 mm[Hg] BP sys height E&M 152 [in_us] Bdy height pulse rate E&M 123 /min Heart rate temperature E&M 99.2 [degF] Body temp erature weight E&M 152.38 [lb_av] Weight Measure d Diagnostic Results Date Name Value Unit Range Description Lab Report: CBC, Comp. Metabolic Panel, Lipid Panel, Thyroid Stimulating ... - Chemistry sodium, serum 143 mmol/L 565-641 3995/01/24 potassium, serum 4.1 mmol/L 3.5-5.2 chloride, serum [...] 0.60 mg/dL 0.00-1.00 cholesterol, serum 227 mg/dL 208-719 2303/01/24 triglyceride, serum, fasting 97 mg/dL 30-200 HDL [...] leukocyte count, blood 4.1 10^3/MM^3 10*3/mm3 4.6-10.2 mean corpuscular hemoglobin concentration, RBC 34.1 G/DL % 31.8-35.4 red blood cell distribution width 12.8 % 11 .6-14.8 platelet count 371 10^3/MM^3 10*3/mm3 096-200 6072/10/23 erythrocyte (RBC) count 4.89 10^6/MM^3 10*6/mm3 4.04-5.4 8 hemoglobin, blood 15.0 g/dL 12.0-16.0 hematocrit, blood 43.9 % 36.0-46.0 mean corpuscular volume, RBC 90 fL 80-97 mean corpuscular hemoglobin, RBC 30.6 pg 27. 0-31.2 Office Visit: Check meds and labs - Chem istry triglyceride, target level 150 mg/dL HDL cholesterol, serum, target level 40 mg/dL LDL target level 160 mg/dL cholesterol, target level 200 mg/dL Encounters Code Encounter Date Provider Facility CPT-87668 Level 3 Est. Patient 10:03:07 CDT Perez Mora MD [facility] CPT-92864 Level 3 Est. Patient 19:50:35 [employer]OW JUMPING INSTRUCTOR Carlton rich MD [facility] CPT-89927 Level 4 Est. Patient 18:05:01 SHOW JUMPING INSTRUCTOR Carlton rich MD [facility] CPT-38291 Level 3 Est. Patient 10:45:55 SHOW JUMPING INSTRUCTOR Hugo Restrepo MD [facility] CPT-09737 Level 3 Est. Patient 14:12:49 CDT Griffin HERNANDEZ [facility] CPT-95177 Level 3 Est. Patient 17:37:24 CDT Carlton rich MD [facility] CPT-03246 Level 3 Est. Patient 16:51:54 CDT Carlton rich MD [facility] CPT-73108 Level 3 Est. Patient 12:18:11 CDT Hugo Restrepo MD [facility] CPT-64093 Level 3 Est. Patient 11:30:25 CDT Marcy crisostomo MD PhD [facility] CPT-48586 Level 3 Est. Patient 12:00:47 SHOW JUMPING INSTRUCTOR Carlton rich MD [facility] CPT-36567 Level 3 Est. Patient 16:31:06 SHOW JUMPING INSTRUCTOR Carlton rich MD [facility] CPT-46412 Level 3 Est. Patient 16:23:24 SHOW JUMPING INSTRUCTOR Ridge tam [facility] CPT-09625 Level 3 Est. Patient 12:34:12 CDT Carlton rich MD [facility] CPT-15826 Level 2 Est. Patient 15:43:33 CDT Robi armstrong MD [facility] CPT-04044 Level 4 Est. Patient 14:04:44 CDT Carlton rich MD [facility] CPT-38776 Level 3 Est. Patient 05:47:[address] [facility] CPT-19395 Level 3 Est. Patient 13:12:53 SHOW JUMPING INSTRUCTOR Carlton rich MD [facility] CPT-21798 Level 3 Est. Patient 14:26:53 CDT Hugo Restrepo MD [facility] Procedures Code Procedure Name Date Entry Date Standard Desc ription CPT-63002 Fluzone Quadrivalent Intramuscular Suspe nsion 0.5 ML 14:31:55 CDT CPT-64887 Abx/Therapy Injection 13:28:47 SHOW JUMPING INSTRUCTOR CPT-J2930 Solu Medrol 125 mg (Methyl Prednisolone Sodium Succinate) 12:00:47 SHOW JUMPING INSTRUCTOR CPT-62237 Venipuncture Draw Fee 11:33:31 CDT CPT-90913 EKG Trac and Interp 11:21:09 CDT CPT-54556 Chest 2V Frontal and Lat 11:21:09 CDT 12/15 CPT-08215 Venipuncture Draw Fee 08:02:34 CDT CPT-87530 Chest 2V Frontal and Lat 05:47:59 CDT 06/05
--- OUTSIDE RECORDS SUMMARY | 2019-10-08 10:19 | XMS REPORT | Clinical Summary ---
Author Author Caitlin, Juliana Martinez Organization [facility] Address Unknown Phone Unavailable Allergies, Adverse Reactions, Alerts Allergy Name Reaction Description Start Date Severity Status Pr ovider No Known Allergies Maryjonimorgan Schulz Conditions or Problems Problem Name Problem [...] BID prn had pain 2 CYCLOBENZAPRINE HCL 80671703889 Active Carlton Hu MD A ctive PROMETHAZINE-CODEINE 6.25-10 MG/5ML SYRP 1 tsp by mouth ever y 8 hours prn cough PROMETHAZINE-CODEINE [id number] No Longer Active Robert Hu MD Active MEDROL (REYNA) 4 MG TABS 6 pills x 1 day, then 5 pill s x 1 day then 4 pills x 1 day, then 3 pills x 1 day, then 2 pills x 1 day, then 1 pill x 1 day, then stop METHYLPREDNISOLONE 39266704955 No Longer Active Parris Mora MD Active AZITHROMYCIN 250 MG TABS 2 po qd x 1 day, then 1 po qd x 4 days AZITHROMYCIN 41131289790 No Longer Active Perez Mora MD Active SYMBICORT 160-4.5 MCG/ACT AERO 2 puffs bid with rinse after 2011 BUDESONIDE-FORMOTEROL FUMARATE 12783843600 No Longer Active Perez Mora MD Active LYRICA 75 MG CAPS TAKE 1 CAPSULE BY MOUTH TWICE DAILY 2013 PREGABALIN 04021134590 No Longer Active Carlton Hu MD Active LYRICA 100 MG CAPS Take 1 tab po BID for fibromyalgia PREGABALIN 43952363899 Active Carlton Hu MD Active TOPAMAX 25 MG TABS 1 qHS x 1 week, then 1 BID x 1 week, then 1 qAM and 2 qHS x 1 week, then 2 BID (migraine prevention) TOPIRAMAT E 06815901900 No Longer Active Jerica FUENTES Active TOPAMAX 50 MG TABS take 1 tab po BID for migraines. 12/07/10 TOPIRAMATE 94443597021 No Longer Active Jerica FUENTES Ac tive TOPAMAX 100 MG TABS Take 1 tablet po bid TOPIRAMATE 4999 6443003 Active Carlton Hu MD Active TRIAMCINOLONE ACETONIDE 0.1 % CREA apply three times daily prn r beatrice TRIAMCINOLONE ACETONIDE 70759318827 No Longer Active Carlton Hu MD Active PAXIL 40 MG TAB take 1 tab po qday for depression PAROXETINE HCL 95005209846 Active Carlton Hu MD Active CYMBALTA 30 MG CPEP 1 cap by mouth daily DULOXE SNEHA HCL 78524901017 Active Carlton Hu MD Active CHERATUSSIN AC 100-10 MG/5ML SYRP 5ml po q6hr PRN Cough GUAIFENESIN-CODEINE 57068913362 No Longer Active Carlton Hu MD Active MEDROL (REYNA) 4 MG TABS 6 tabs on day 1, 5 tabs on d ay 2, 4 tabs on day 3, 3 tabs on day 4, 2 tabs on day 5, 1 tab on day 6 METHYLPREDNISOLONE 85885742031 No Longer Active Perez Mora MD Active AZITHROMYCIN 250 MG TABS 2 po qd x 1 day, then 1 po qd x 4 days AZITHROMYCIN 55020570892 No Longer Active Perez Mora MD Active PROPRANOLOL HCL 60 MG TABS 1 PO Q D PROPRANOL OL HCL 02229647073 No Longer Active Perez Mora MD Active CHERATUSSIN AC 100-10 MG/5ML SYRP take one tsp po Q 6hours prn c ough GUAIFENESIN-CODEINE 37341616199 No Longer Active Perez Means Active AUGMENTIN 875-125 MG TAB 1 tab by mouth twice daily with food 20 12/03/31 AMOXICILLIN-POT CLAVULANATE 51047971811 No Longer Active Chanel Mora MD Active CHERATUSSIN AC 100-10 MG/5ML SYRP 1 tsp by mouth every 4 hours as needed for cough GUAIFENESIN-CODEINE 54744636772 No Longer Activ e Hugo Restrepo MD Active ACETAMINOPHEN-CODEINE #3 300-30 MG TABS 1 PO Q 4-6 HRS PRN PAIN ACETAMINOPHEN-CODEINE 24642165542 No Longer Active Hugo Restrepo MD Active LEVAQUIN 500 MG TABS take one po QD LEVOFLOXACI N 44224298955 No Longer Active Griffin HERNANDEZ Active PREDNISONE 20 MG TAB Take 3 tabs daily for 3 days , 2 tabs daily for 3 days, 1 tab daily for 3 days, 1/2 tab daily for 3 days P REDNISONE 94777058562 No Longer Active Carlton Hu MD Active AVELOX 400 MG TABS 1 tab by mouth daily MOXIFLO XACIN HCL 81264373174 No Longer Active Carlton Hu MD Active CHERATUSSIN AC 100-10 MG/5ML SYRP 1 tsp by mouth every 4 hours as needed for cough GUAIFENESIN-CODEINE 79464938009 No Longer Activ e Hugo Restrepo MD Active AVELOX 400 MG TABS 1 tab by mouth daily MOXIFLO XACIN HCL 69181090298 No Longer Active Marcy De La Rosa MD PhD Active TERBINAFINE HCL 250 MG TABS 1 qDay TERBINAF INE HCL 70887510441 No Longer Active Marcy De La Rosa MD PhD Active CHERATUSSIN AC 100-10 MG/5ML SYRP 1 tsp by mouth every 4 hours as needed for cough GUAIFENESIN-CODEINE 29066251042 No Longer Activ e Marcy De La Rosa MD PhD Active AVELOX 400 MG TABS 1 tab by mouth daily MOXIFLO XACIN HCL 66243275907 No Longer Active Marcy De La Rosa MD PhD Active HYDROCODONE-ACETAMINOPHEN 5-325 MG TABS 1 po q 6hr PRN cough 201 05/09/16 HYDROCODONE-ACETAMINOPHEN 75674466507 No Longer Active Marcy De La Rosa MD PhD Active PREDNISONE 20 MG TAB 2 tabs daily for 3 days, 1 t ab daily for 3 days, 1/2 tab daily for 2 days PREDNISONE 85930415945 No Longer Active Carlton Hu MD Active CEFDINIR 300 MG CAPS by mouth twice a day CEFDI ODILIA 34610460182 No Longer Active Carlton Hu MD Active ZOCOR 40 MG TAB 1 tab by mouth daily SIMVASTATIN 29654321612 Active Carlton Hu MD Active HYDROCHLOROTHIAZIDE 25 MG TABS 1 TAB PO DAILY H YDROCHLOROTHIAZIDE 32768268066 Active Carlton Hu MD Active ACETAMINOPHEN-CODEINE #3 300-30 MG TABS 1 tablet po q 4-6hrs prn pain ACETAMINOPHEN-CODEINE 43361761435 No Longer Active Ridge Bess DO Active ZITHROMAX 250 MG TAB 2 po today, then 1 po q days 2-5 AZITHROMYCIN 63108113696 No Longer Active Carlton Hu MD Acti ve CHERATUSSIN AC 100-10 MG/5ML SYRP take 1 tsp po q4-6 hours prn c ough GUAIFENESIN-CODEINE 60126323812 No Longer Active Carlton Hu MD Active ACETAMINOPHEN-CODEINE #3 300-30 MG TABS 1 PO Q 4-6 HR PRN PAIN 2 ACETAMINOPHEN-CODEINE 91693147483 No Longer Active Carlton rich MD Active LORTAB 7.5-500 MG/15ML ELIX 7.5 ml po q 4 hour prn cough HYDROCODONE-ACETAMINOPHEN 63902292791 No Longer Active Carlton Hu MD Active PREDNISONE 20 MG TAB 1 po bid 3 days, then 1 po q day 3 days 201 05/03/07 PREDNISONE 89414917378 No Longer Active Carlton Hu MD Active ELMIRON 100 MG CAPS 2 tablets in the am and 1 tablet at hs PENTOSAN POLYSULFATE SODIUM 38239127308 Active Gracie Sebree Active CEFDINIR 300 MG CAPS by mouth twice a day CEFDI ODILIA 90420043462 No Longer Active Carlton Hu MD Active CEFDINIR 300 MG CAPS by mouth twice a day CEFDI ODILIA 54517801373 No Longer Active Carlton Hu MD Active CEFDINIR 300 MG CAPS by mouth twice a day CEFDI ODILIA 45817082414 No Longer Active Carlton Hu MD Active TESSALON PERLES 100 MG CAP 1 tablet by mouth 3 times daily a s needed for cough BENZONATATE 82594286052 No Longer Active Carlton bustamante MD Active CEFDINIR 300 MG CAPS by mouth twice a day CEFDI ODILIA 40175531140 No Longer Active Carlton Hu MD Active ZITHROMAX Z-REYNA 250 MG TABS 2 today, then 1 daily for 4 days 201 04/09/17 AZITHROMYCIN 60226820284 No Longer Active Hugo Restrepo MD Active PREMARIN 0.625 MG TABS TAKE 1 TAB BY MOUTH DAILY ESTROGENS CONJUGATED 37609948461 Active Carlton Hu MD Active TESSALON PERLES 100 MG CAP 1 tablet by mouth 3 times daily a s needed for cough TESSALON PERLES 100 MG CAP 190219 BENZONATATE I nactive PREDNISONE 20 MG TAB 1 po bid 3 days, then 1 po q day 3 days 201 05/03/07 PREDNISONE 20 MG TAB 649521 PREDNISONE Inactive LORTAB 7.5-500 MG/15ML ELIX 7.5 ml po q 4 hour prn cough LORTAB 7.5-500 MG/15ML ELIX HYDROCODONE-ACETAMINOPHEN Inacti ve ACETAMINOPHEN-CODEINE #3 300-30 MG TABS 1 PO Q 4-6 HR PRN PAIN 2 ACETAMINOPHEN-CODEINE #3 300-30 MG TABS 647563 ACETAMIN OPHEN-CODEINE Inactive CHERATUSSIN AC 100-10 MG/5ML SYRP take 1 tsp po q4-6 hours prn c ough CHERATUSSIN AC 100-10 MG/5ML SYRP 232896 GUAIFENESIN-CO DEINE Inactive ACETAMINOPHEN-CODEINE #3 300-30 MG TABS 1 tablet po q 4-6hrs prn pain ACETAMINOPHEN-CODEINE #3 300-30 MG TABS 041496 ACETAMIN OPHEN-CODEINE Inactive HYDROCODONE-ACETAMINOPHEN 5-325 MG TABS 1 po q 6hr PRN cough 201 05/09/16 HYDROCODONE-ACETAMINOPHEN 5-325 MG TABS 852972 HYDROCODONE-ACETAMINOPHEN Inactive AVELOX 400 MG TABS 1 tab by mouth daily A VELOX 400 MG TABS 094307 MOXIFLOXACIN HCL Inactive CHERATUSSIN AC 100-10 MG/5ML SYRP 1 tsp by mouth every 4 hours as needed for cough CHERATUSSIN AC 100-10 MG/5ML SYRP 949713 GUAIFENESIN-CODEINE Inactive TERBINAFINE HCL 250 MG TABS 1 qDay TERBINAFINE HCL 250 MG TABS 724507 TERBINAFINE HCL Inactive CHERATUSSIN AC 100-10 MG/5ML SYRP 1 tsp by mouth every 4 hours as needed for cough CHERATUSSIN AC 100-10 MG/5ML SYRP 669565 GUAIFENESIN-CODEINE Inactive ACETAMINOPHEN-CODEINE #3 300-30 MG TABS 1 PO Q 4-6 HRS PRN PAIN ACETAMINOPHEN-CODEINE #3 300-30 MG TABS 913474 ACETAMINOPHEN-CODEIN E Inactive CHERATUSSIN AC 100-10 MG/5ML SYRP 1 tsp by mouth every 4 hours as needed for cough CHERATUSSIN AC 100-10 MG/5ML SYRP 554346 GUAIFENESIN-CODEINE Inactive AUGMENTIN 875-125 MG TAB 1 tab by mouth twice daily with food 20 12/03/31 AUGMENTIN 875-125 MG TAB 709771 AMOXICILLIN-POT CLAVULA EFE Inactive CHERATUSSIN AC 100-10 MG/5ML SYRP take one tsp po Q 6hours prn c ough CHERATUSSIN AC 100-10 MG/5ML SYRP 650756 GUAIFENESIN-CO DEINE Inactive PROPRANOLOL HCL 60 MG TABS 1 PO Q D P ROPRANOLOL HCL 60 MG TABS 592961 PROPRANOLOL HCL Inactive TOPAMAX 50 MG TABS take 1 tab po BID for migraines. 12/07/10 TOPAMAX 50 MG TABS 808974 TOPIRAMATE Inactive TOPAMAX 25 MG TABS 1 qHS x 1 week, then 1 BID x 1 week, then 1 qAM and 2 qHS x 1 week, then 2 BID (migraine prevention) TOPAMAX 2 5 MG TABS 989011 TOPIRAMATE Inactive LYRICA 75 MG CAPS TAKE 1 CAPSULE BY MOUTH TWICE DAILY LYRICA 75 MG CAPS PREGABALIN Inactive SYMBICORT 160-4.5 MCG/ACT AERO 2 puffs bid with rinse after 2011 SYMBICORT 160-4.5 MCG/ACT AERO BUDESONIDE-FORMOT SÁNCHEZ FUMARATE Inactive PROMETHAZINE-CODEINE 6.25-10 MG/5ML SYRP 1 tsp by mouth ever y 8 hours prn cough PROMETHAZINE-CODEINE 6.25-10 MG/5ML SYRP 960297 PROMETHAZINE-CODEINE Inactive ZITHROMAX Z-REYNA 250 MG TABS 2 today, then 1 daily for 4 days 201 04/09/17 ZITHROMAX Z-REYNA 250 MG TABS 7409345 AZITHROMYCIN Inac tive CEFDINIR 300 MG CAPS by mouth twice a day CEFDINIR 300 MG CAPS 20020704 CEFDINIR Inactive CEFDINIR 300 MG CAPS by mouth twice a day CEFDINIR 300 MG CAPS 993014 CEFDINIR Inactive CEFDINIR 300 MG CAPS by mouth twice a day CEFDINIR 300 MG CAPS 415170 CEFDINIR Inactive CEFDINIR 300 MG CAPS by mouth twice a day CEFDINIR 300 MG CAPS 932638 CEFDINIR Inactive ZITHROMAX 250 MG TAB 2 po today, then 1 po q days 2-5 ZITHROMAX 250 MG TAB 2521244 AZITHROMYCIN Inactive CEFDINIR 300 MG CAPS by mouth twice a day CEFDINIR 300 MG CAPS 20020704 CEFDINIR Inactive PREDNISONE 20 MG TAB 2 tabs daily for 3 days, 1 t ab daily for 3 days, 1/2 tab daily for 2 days PREDNISONE 20 MG TAB 804584 PREDNISON E Inactive AVELOX 400 MG TABS 1 tab by mouth daily A VELOX 400 MG TABS 207151 MOXIFLOXACIN HCL Inactive AVELOX 400 MG TABS 1 tab by mouth daily A VELOX 400 MG TABS 069826 MOXIFLOXACIN HCL Inactive PREDNISONE 20 MG TAB Take 3 tabs daily for 3 days , 2 tabs daily for 3 days, 1 tab daily for 3 days, 1/2 tab daily for 3 days PREDNISONE 20 MG TAB 790698 PREDNISONE Inactive LEVAQUIN 500 MG TABS take one po QD LEVAQUIN 50 0 MG TABS 619101 LEVOFLOXACIN Inactive AZITHROMYCIN 250 MG TABS 2 po qd x 1 day, then 1 po qd x 4 days AZITHROMYCIN 250 MG TABS 7006416 AZITHROMYCIN Inactiv e MEDROL (REYNA) 4 MG TABS 6 tabs on day 1, 5 tabs on d ay 2, 4 tabs on day 3, 3 tabs on day 4, 2 tabs on day 5, 1 tab on day 6 MEDROL (REYNA) 4 MG TABS METHYLPREDNISOLONE Inactive CHERATUSSIN AC 100-10 MG/5ML SYRP 5ml po q6hr PRN Cough CHERATUSSIN AC 100-10 MG/5ML SYRP 978312 GUAIFENESIN-CODEINE Inacti ve TRIAMCINOLONE ACETONIDE 0.1 % CREA apply three times daily prn r beatrice TRIAMCINOLONE ACETONIDE 0.1 % CREA 3597216 TRIAMCINOLONE ACETONIDE Inactive AZITHROMYCIN 250 MG TABS 2 po qd x 1 day, then 1 po qd x 4 days AZITHROMYCIN 250 MG TABS 9063398 AZITHROMYCIN Inactiv e MEDROL (REYNA) 4 MG [...] Value Unit Range Description blood pressure, diastolic 78 mm[Hg] BP srinivasan blood pressure, systolic 113 mm[Hg] BP sys pulse rate E&M 78 /min Heart rate temperature E&M 97.9 [degF] Body temp erature weight E&M 128 [lb_av] Weight Measure d blood pressure, diastolic 80 mm[Hg] BP srinivasan [...] ... - Chemistry sodium, serum 143 mmol/L 255-984 8816/01/24 potassium, serum 4.1 mmol/L 3.5-5.2 chloride, serum [...] 0.60 mg/dL 0.00-1.00 cholesterol, serum 227 mg/dL 202-207 3919/01/24 triglyceride, serum, fasting 97 mg/dL 30-200 HDL [...] mg/dL Encounters Code Encounter Date Provider Facility CPT-04580 Level 3 Est. Patient 10:03:07 CDT Perez Mora MD [facility] CPT-59817 Level 3 Est. Patient 19:50:35 [employer] Carlton rich MD [facility] CPT-45819 Level 4 Est. Patient 18:05:01 [employer] Carlton rich MD [facility] CPT-52561 Level 3 Est. Patient 10:45:55 [employer] Hugo Restrepo MD [facility]-79142 Level 3 Est. Patient 14:12:49 CDT Griffin HERNANDEZ [facility]-35033 Level 3 Est. Patient 17:37:24 CDT Carlton rich MD [facility]-85020 Level 3 Est. Patient 16:51:54 CDT Carlton rich MD [facility]-98353 Level 3 Est. Patient 12:18:11 CDT Hugo Restrepo MD [facility]-38133 Level 3 Est. Patient 11:30:25 CDT Marcy crisostomo MD PhD [facility]-26463 Level 3 Est. Patient 12:00:47 [employer] Carlton rich MD [facility]-46908 Level 3 Est. Patient 16:31:06 [employer] Carlton rich MD [facility]-73515 Level 3 Est. Patient 16:23:24 [employer] HAND Ridge tam [facility]-78878 Level 3 Est. Patient 12:34:12 CDT Carlton rich MD [facility]-49775 Level 2 Est. Patient 15:43:33 CDT Robi armstrong MD [facility]-80500 Level 4 Est. Patient 14:04:44 CDT Carlton rich MD [facility]-18920 Level 3 Est. Patient 05:47:59 CDT Ridge tam [facility]-64480 Level 3 Est. Patient 13:12:53 [employer] Carlton rich MD [facility]-45305 Level 3 Est. Patient 14:26:53 CDT Hugo Restrepo MD [facility] Procedures Code Procedure Name Date Entry Date Standard Desc ription CPT-42432 Fluzone Quadrivalent Intramuscular Suspe nsion 0.5 ML 14:31:55 CDT CPT-52437 Abx/Therapy Injection 13:28:47 [employer] CPT-J2930 Solu Medrol 125 mg (Methyl Prednisolone Sodium Succinate) 12:00:47 [employer] CPT-17588 Venipuncture Draw Fee 11:33:31 CDT CPT-54384 EKG Trac and Interp 11:21:09 CDT CPT-26292 Chest 2V Frontal and Lat 11:21:09 CDT 12/15 CPT-41008 Venipuncture Draw Fee 08:02:34 CDT CPT-34519 Chest 2V Frontal and Lat 05:47:59 CDT 06/05
--- OUTSIDE RECORDS SUMMARY | 2019-10-08 10:19 | XMS REPORT | Clinical Summary ---
Author Author Caitlin, Juliana Martinez Organization [facility] Address Unknown Phone Unavailable Allergies, [...] MD Other atopic dermatitis and related conditions BRONCHITIS ICD-490 Inactive Hugo Restrepo MD 201 [...] Generic Name NDC Status Provider Patient Instruction PROMETHAZINE-CODEINE 6.25-10 MG/5ML SYRP 1 tsp by mouth ever y 8 hours prn cough PROMETHAZINE-CODEINE 06335893280 Active Perez Mora MD Active MEDROL (REYNA) 4 MG TABS 6 pills x 1 day, then 5 pill s x 1 day then 4 pills x 1 day, then 3 pills x 1 day, then 2 pills x 1 day, then 1 pill x 1 day, then stop METHYLPREDNISOLONE 58221688328 No Longer Active Parris Mora MD Active AZITHROMYCIN 250 MG TABS 2 po qd x 1 day, then 1 po qd x 4 days AZITHROMYCIN 92290793419 No Longer Active Perez Mora MD Active SYMBICORT 160-4.5 MCG/ACT AERO 2 puffs bid with rinse after 2011 BUDESONIDE-FORMOTEROL FUMARATE 42754924902 No Longer Active Perez Mora MD Active LYRICA 75 MG CAPS TAKE 1 CAPSULE BY MOUTH TWICE DAILY 2013 PREGABALIN 36790572455 No Longer Active Carlton Hu MD Active LYRICA 100 MG CAPS Take 1 tab po BID for fibromyalgia PREGABALIN 70758399920 Active Carlton Hu MD Active TOPAMAX 25 MG TABS 1 qHS x 1 week, then 1 BID x 1 week, then 1 qAM and 2 qHS x 1 week, then 2 BID (migraine prevention) TOPIRAMAT E 66521939675 No Longer Active Jerica Robertema FUENTES Active TOPAMAX 50 MG TABS take 1 tab po BID for migraines. 12/07/10 TOPIRAMATE 11970291085 No Longer Active Jerica Osei RMA Ac tive TOPAMAX 100 MG TABS Take 1 tablet po bid TOPIRAMATE 4999 5451701 Active Carlton Hu MD Active TRIAMCINOLONE ACETONIDE 0.1 % CREA apply three times daily prn r beatrice TRIAMCINOLONE ACETONIDE 59894091784 No Longer Active Carlton Hu MD Active PAXIL 40 MG TAB take 1 tab po qday for depression PAROXETINE HCL 68171966767 Active Carlton Hu MD Active CYMBALTA 30 MG CPEP 1 cap by mouth daily DULOXE SNEHA HCL 94813637063 Active Carlton Hu MD Active CHERATUSSIN AC 100-10 MG/5ML SYRP 5ml po q6hr PRN Cough GUAIFENESIN-CODEINE 42205628458 No Longer Active Carlton Hu MD Active MEDROL (REYNA) 4 MG TABS 6 tabs on day 1, 5 tabs on d ay 2, 4 tabs on day 3, 3 tabs on day 4, 2 tabs on day 5, 1 tab on day 6 METHYLPREDNISOLONE 14490445551 No Longer Active Perez Mora MD Active AZITHROMYCIN 250 MG TABS 2 po qd x 1 day, then 1 po qd x 4 days AZITHROMYCIN 31640173360 No Longer Active Perez Mora MD Active PROPRANOLOL HCL 60 MG TABS 1 PO Q D PROPRANOL OL HCL 13739186884 No Longer Active Perez Mora MD Active CHERATUSSIN AC 100-10 MG/5ML SYRP take one tsp po Q 6hours prn c ough GUAIFENESIN-CODEINE 44327090130 No Longer Active Perez Means Active AUGMENTIN 875-125 MG TAB 1 tab by mouth twice daily with food 20 12/03/31 AMOXICILLIN-POT CLAVULANATE 18719401378 No Longer Active Chanel Mora MD Active CHERATUSSIN AC 100-10 MG/5ML SYRP 1 tsp by mouth every 4 hours as needed for cough GUAIFENESIN-CODEINE 58743620204 No Longer Activ e Hugo Restrepo MD Active ACETAMINOPHEN-CODEINE #3 300-30 MG TABS 1 PO Q 4-6 HRS PRN PAIN ACETAMINOPHEN-CODEINE 15053947422 No Longer Active Hugo Restrepo MD Active LEVAQUIN 500 MG TABS take one po QD LEVOFLOXACI N 57224843154 No Longer Active Griffin HERNANDEZ Active PREDNISONE 20 MG TAB Take 3 tabs daily for 3 days , 2 tabs daily for 3 days, 1 tab daily for 3 days, 1/2 tab daily for 3 days P REDNISONE 63048229234 No Longer Active Carlton Hu MD Active AVELOX 400 MG TABS 1 tab by mouth daily MOXIFLO XACIN HCL 99062019312 No Longer Active Carlton Hu MD Active CHERATUSSIN AC 100-10 MG/5ML SYRP 1 tsp by mouth every 4 hours as needed for cough GUAIFENESIN-CODEINE 57713092652 No Longer Activ e Hugo Restrepo MD Active AVELOX 400 MG TABS 1 tab by mouth daily MOXIFLO XACIN HCL 13269000885 No Longer Active Marcy De La Rosa MD PhD Active TERBINAFINE HCL 250 MG TABS 1 qDay TERBINAF INE HCL 08659152244 No Longer Active Marcy De La Rosa MD PhD Active CHERATUSSIN AC 100-10 MG/5ML SYRP 1 tsp by mouth every 4 hours as needed for cough GUAIFENESIN-CODEINE 73424917956 No Longer Activ e Marcy De La Rosa MD PhD Active AVELOX 400 MG TABS 1 tab by mouth daily MOXIFLO XACIN HCL 33886768755 No Longer Active Marcy De La Rosa MD PhD Active HYDROCODONE-ACETAMINOPHEN 5-325 MG TABS 1 po q 6hr PRN cough 201 05/09/16 HYDROCODONE-ACETAMINOPHEN 48013541185 No Longer Active Marcy De La Rosa MD PhD Active PREDNISONE 20 MG TAB 2 tabs daily for 3 days, 1 t ab daily for 3 days, 1/2 tab daily for 2 days PREDNISONE 23260354812 No Longer Active Carlton Hu MD Active CEFDINIR 300 MG CAPS by mouth twice a day CEFDI ODILIA 72671265811 No Longer Active Carlton Hu MD Active ZOCOR 40 MG TAB 1 tab by mouth daily SIMVASTATIN 49021828790 Active Carlton Hu MD Active HYDROCHLOROTHIAZIDE 25 MG TABS 1 TAB PO DAILY H YDROCHLOROTHIAZIDE 73297747136 Active Carlton Hu MD Active ACETAMINOPHEN-CODEINE #3 300-30 MG TABS 1 tablet po q 4-6hrs prn pain ACETAMINOPHEN-CODEINE 88780531319 No Longer Active Ridge Bess DO Active ZITHROMAX 250 MG TAB 2 po today, then 1 po q days 2-5 AZITHROMYCIN 26244925789 No Longer Active Carlton Hu MD Acti ve CHERATUSSIN AC 100-10 MG/5ML SYRP take 1 tsp po q4-6 hours prn c ough GUAIFENESIN-CODEINE 08330206759 No Longer Active Carlton Hu MD Active ACETAMINOPHEN-CODEINE #3 300-30 MG TABS 1 PO Q 4-6 HR PRN PAIN 2 ACETAMINOPHEN-CODEINE 87855094989 No Longer Active Carlton rich MD Active LORTAB 7.5-500 MG/15ML ELIX 7.5 ml po q 4 hour prn cough HYDROCODONE-ACETAMINOPHEN 30751235501 No Longer Active Carlton Hu MD Active PREDNISONE 20 MG TAB 1 po bid 3 days, then 1 po q day 3 days 201 05/03/07 PREDNISONE 65178287496 No Longer Active Carlton Hu MD Active ELMIRON 100 MG CAPS 2 tablets in the am and 1 tablet at hs PENTOSAN POLYSULFATE SODIUM 51621381479 Active Gracie [place] Active CEFDINIR 300 MG CAPS by mouth twice a day CEFDI ODILIA 38502404328 No Longer Active Carlton Hu MD Active CEFDINIR 300 MG CAPS by mouth twice a day CEFDI ODILIA 29762486923 No Longer Active Carlton Hu MD Active CEFDINIR 300 MG CAPS by mouth twice a day CEFDI ODILIA 93094482364 No Longer Active Carlton Hu MD Active TESSALON PERLES 100 MG CAP 1 tablet by mouth 3 times daily a s needed for cough BENZONATATE 77019886711 No Longer Active Carlton bustamante MD Active CEFDINIR 300 MG CAPS by mouth twice a day CEFDI ODILIA 96534073984 No Longer Active Carlton Hu MD Active ZITHROMAX Z-REYNA 250 MG TABS 2 today, then 1 daily for 4 days 201 04/09/17 AZITHROMYCIN 29625155792 No Longer Active Hugo Restrepo MD Active PREMARIN 0.625 MG TABS TAKE 1 TAB BY MOUTH DAILY ESTROGENS CONJUGATED 87060010238 Active Carlton Hu MD Active TESSALON PERLES 100 MG CAP 1 tablet by mouth 3 times daily a s needed for cough TESSALON PERLES 100 MG CAP 416596 BENZONATATE I nactive PREDNISONE 20 MG TAB 1 po bid 3 days, then 1 po q day 3 days 201 05/03/07 PREDNISONE 20 MG TAB 315472 PREDNISONE Inactive LORTAB 7.5-500 MG/15ML ELIX 7.5 ml po q 4 hour prn cough LORTAB 7.5-500 MG/15ML ELIX HYDROCODONE-ACETAMINOPHEN Inacti ve ACETAMINOPHEN-CODEINE #3 300-30 MG TABS 1 PO Q 4-6 HR PRN PAIN 2 ACETAMINOPHEN-CODEINE #3 300-30 MG TABS 636279 ACETAMIN OPHEN-CODEINE Inactive CHERATUSSIN AC 100-10 MG/5ML SYRP take 1 tsp po q4-6 hours prn c ough CHERATUSSIN AC 100-10 MG/5ML SYRP 143847 GUAIFENESIN-CO DEINE Inactive ACETAMINOPHEN-CODEINE #3 300-30 MG TABS 1 tablet po q 4-6hrs prn pain ACETAMINOPHEN-CODEINE #3 300-30 MG TABS 130808 ACETAMIN OPHEN-CODEINE Inactive HYDROCODONE-ACETAMINOPHEN 5-325 MG TABS 1 po q 6hr PRN cough 201 05/09/16 HYDROCODONE-ACETAMINOPHEN 5-325 MG TABS 628182 HYDROCODONE-ACETAMINOPHEN Inactive AVELOX 400 MG TABS 1 tab by mouth daily A VELOX 400 MG TABS 824181 MOXIFLOXACIN HCL Inactive CHERATUSSIN AC 100-10 MG/5ML SYRP 1 tsp by mouth every 4 hours as needed for cough CHERATUSSIN AC 100-10 MG/5ML SYRP 119683 GUAIFENESIN-CODEINE Inactive TERBINAFINE HCL 250 MG TABS 1 qDay TERBINAFINE HCL 250 MG TABS 976440 TERBINAFINE HCL Inactive CHERATUSSIN AC 100-10 MG/5ML SYRP 1 tsp by mouth every 4 hours as needed for cough CHERATUSSIN AC 100-10 MG/5ML SYRP 599652 GUAIFENESIN-CODEINE Inactive ACETAMINOPHEN-CODEINE #3 300-30 MG TABS 1 PO Q 4-6 HRS PRN PAIN ACETAMINOPHEN-CODEINE #3 300-30 MG TABS 148376 ACETAMINOPHEN-CODEIN E Inactive CHERATUSSIN AC 100-10 MG/5ML SYRP 1 tsp by mouth every 4 hours as needed for cough CHERATUSSIN AC 100-10 MG/5ML SYRP 127929 GUAIFENESIN-CODEINE Inactive AUGMENTIN 875-125 MG TAB 1 tab by mouth twice daily with food 20 12/03/31 AUGMENTIN 875-125 MG TAB 539227 AMOXICILLIN-POT CLAVULA EFE Inactive CHERATUSSIN AC 100-10 MG/5ML SYRP take one tsp po Q 6hours prn c ough CHERATUSSIN AC 100-10 MG/5ML SYRP 988269 GUAIFENESIN-CO DEINE Inactive PROPRANOLOL HCL 60 MG TABS 1 PO Q D P ROPRANOLOL HCL 60 MG TABS 954140 PROPRANOLOL HCL Inactive TOPAMAX 50 MG TABS take 1 tab po BID for migraines. 12/07/10 TOPAMAX 50 MG TABS 406194 TOPIRAMATE Inactive TOPAMAX 25 MG TABS 1 qHS x 1 week, then 1 BID x 1 week, then 1 qAM and 2 qHS x 1 week, then 2 BID (migraine prevention) TOPAMAX 2 5 MG TABS 079706 TOPIRAMATE Inactive LYRICA 75 MG CAPS TAKE 1 CAPSULE BY MOUTH TWICE DAILY LYRICA 75 MG CAPS PREGABALIN Inactive SYMBICORT 160-4.5 MCG/ACT AERO 2 puffs bid with rinse after 2011 SYMBICORT 160-4.5 MCG/ACT AERO BUDESONIDE-FORMOT SÁNCHEZ FUMARATE Inactive ZITHROMAX Z-REYNA 250 MG TABS 2 today, then 1 daily for 4 days 201 04/09/17 ZITHROMAX Z-REYNA 250 MG TABS 6836851 AZITHROMYCIN Inac tive CEFDINIR 300 MG CAPS [...] q days 2-5 ZITHROMAX 250 MG TAB 4881912 AZITHROMYCIN Inactive CEFDINIR 300 MG CAPS by mouth twice a day CEFDINIR 300 MG CAPS 20020704 CEFDINIR Inactive PREDNISONE 20 MG TAB 2 tabs daily for 3 days, 1 t ab daily for 3 days, 1/2 tab daily for 2 days PREDNISONE 20 MG TAB 532508 PREDNISON E Inactive AVELOX 400 MG TABS 1 tab by mouth daily A VELOX 400 MG TABS 297225 MOXIFLOXACIN HCL Inactive AVELOX 400 MG TABS 1 tab by mouth daily A VELOX 400 MG TABS 361499 MOXIFLOXACIN HCL Inactive PREDNISONE 20 MG TAB Take 3 tabs daily for 3 days , 2 tabs daily for 3 days, 1 tab daily for 3 days, 1/2 tab daily for 3 days PREDNISONE 20 MG TAB 049866 PREDNISONE Inactive LEVAQUIN 500 MG TABS take one po QD LEVAQUIN 50 0 MG TABS 392397 LEVOFLOXACIN Inactive AZITHROMYCIN 250 MG TABS 2 po qd x 1 day, then 1 po qd x 4 days AZITHROMYCIN 250 MG TABS 6505404 AZITHROMYCIN Inactiv e MEDROL (REYNA) 4 MG TABS 6 tabs on day 1, 5 tabs on d ay 2, 4 tabs on day 3, 3 tabs on day 4, 2 tabs on day 5, 1 tab on day 6 MEDROL (REYNA) 4 MG TABS METHYLPREDNISOLONE Inactive CHERATUSSIN AC 100-10 MG/5ML SYRP 5ml po q6hr PRN Cough CHERATUSSIN AC 100-10 MG/5ML SYRP 156209 GUAIFENESIN-CODEINE Inacti ve TRIAMCINOLONE ACETONIDE 0.1 % CREA apply three times daily prn r beatrice TRIAMCINOLONE ACETONIDE 0.1 % CREA 5144489 TRIAMCINOLONE ACETONIDE Inactive AZITHROMYCIN 250 MG TABS 2 po qd x 1 day, then 1 po qd x 4 days AZITHROMYCIN 250 MG TABS 7665646 AZITHROMYCIN Inactiv e MEDROL (REYNA) 4 MG [...] ... - Chemistry sodium, serum 143 mmol/L 528-479 4686/01/24 potassium, serum 4.1 mmol/L 3.5-5.2 chloride, serum [...] 0.60 mg/dL 0.00-1.00 cholesterol, serum 227 mg/dL 726-319 7633/01/24 triglyceride, serum, fasting 97 mg/dL 30-200 HDL [...] By Repeat Analysis 10^3/mm ^3 10*3/mm3 142-424 Office Visit: Check meds and labs - Chem istry cholesterol, target level 200 mg/dL LDL target level 160 mg/dL HDL cholesterol, serum, target level 40 mg/dL triglyceride, target level 150 mg/dL Encounters Code Encounter Date Provider Facility CPT-68748 Level 3 Est. Patient 10:03:07 CDT Perez Mora MD [facility] CPT-18524 Level 3 Est. Patient 19:50:35 SR. MERCHANDISE PLANNER Carlton rcih MD [facility] CPT-89905 Level 4 Est. Patient 18:05:01 [employer] PLANNER Carlton rich MD [facility] CPT-47107 Level 3 Est. Patient 10:45:55 [employer]ANNER Hugo Restrepo MD [facility]-03393 Level 3 Est. Patient 14:12:49 CDT Griffin HERNANDEZ [facility]-46854 Level 3 Est. Patient 17:37:24 CDT Carlton rich MD [facility]-50077 Level 3 Est. Patient 16:51:54 CDT Carlton rich MD [facility]-60430 Level 3 Est. Patient 12:18:11 CDT Hugo Restrepo MD [facility]-05835 Level 3 Est. Patient 11:30:25 CDT Marcy crisostomo MD PhD [facility]-70244 Level 3 Est. Patient 12:00:47 [employer]NER Carlton rich MD [facility]-15664 Level 3 Est. Patient 16:31:06 [employer]CH[employer]ISE PLANNER Carlton rich MD [facility] CPT-76513 Level 3 Est. Patient 16:23:24 SR. MERCHANDISE PLANNER [facility]-69323 Level 3 Est. Patient 12:34:12 CDT Cralton rich MD [facility]-46263 Level 2 Est. Patient 15:43:33 CDT Robi armstrong MD [facility]-05514 Level 4 Est. Patient 14:04:44 CDT Carlton rich MD [facility]-65765 Level 3 Est. Patient 05:47:59 CDT [facility]-25486 Level 3 Est. Patient 13:12:53 SR. [employer]CH[employer]ISE PLANNER Carlton rich MD [facility]-05299 Level 3 Est. Patient 14:26:53 CDT Hugo Restrepo MD [facility] Procedures Code Procedure Name Date Entry Date Standard Desc ription CPT-36374 Abx/Therapy Injection 13:28:47 SR. MERCHANDISE PLANNER CPT-J2930 Solu Medrol 125 mg (Methyl Prednisolone Sodium Succinate) 12:00:47 [employer]CH[employer]ISE PLANNER CPT-58576 Venipuncture Draw Fee 11:33:31 CDT CPT-81617 EKG Trac and Interp 11:21:09 CDT CPT-28102 Chest 2V Frontal and Lat 11:21:09 CDT 12/15 CPT-46436 Venipuncture Draw Fee 08:02:34 CDT CPT-98030 Chest 2V Frontal and Lat 05:47:59 CDT 06/05
--- OUTSIDE RECORDS SUMMARY | 2019-10-08 10:19 | XMS REPORT | Clinical Summary ---
[...] ever y 8 hours prn cough PROMETHAZINE-CODEINE [id number] Active Perez Mora MD Active MEDROL (REYNA) 4 MG TABS 6 pills x 1 day, then 5 pill s x 1 day then 4 pills x 1 day, then 3 pills x 1 day, then 2 pills x 1 day, then 1 pill x 1 day, then stop METHYLPREDNISOLONE [id number] No Longer Active Parris Mora MD Active AZITHROMYCIN 250 MG TABS 2 po qd x 1 day, then 1 po qd x 4 days AZITHROMYCIN 99615220072 No Longer Active Perez Mora MD Active SYMBICORT 160-4.5 MCG/ACT AERO 2 puffs bid with rinse after 2011 BUDESONIDE-FORMOTEROL FUMARATE [id number] No Longer Active Perez Mora MD Active LYRICA 75 MG CAPS TAKE 1 CAPSULE BY MOUTH TWICE DAILY 2013 PREGABALIN 21944576422 No Longer Active Carlton Hu MD Active LYRICA 100 MG CAPS Take 1 tab po BID for fibromyalgia PREGABALIN 43170081331 Active Carlton Hu MD Active TOPAMAX 25 MG TABS 1 qHS x 1 week, then 1 BID x 1 week, then 1 qAM and 2 qHS x 1 week, then 2 BID (migraine prevention) TOPIRAMAT E 22942123598 No Longer Active Jerica Robertema FUENTES Active TOPAMAX 50 MG TABS take 1 tab po BID for migraines. 12/07/10 TOPIRAMATE 80015347589 No Longer Active Jerica Osei RMA Ac tive TOPAMAX 100 MG TABS Take 1 tablet po bid TOPIRAMATE 4999 0469632 Active Carlton Hu MD Active TRIAMCINOLONE ACETONIDE 0.1 % CREA apply three times daily prn r beatrice TRIAMCINOLONE ACETONIDE 56985095981 No Longer Active Carlton Hu MD Active PAXIL 40 MG TAB take 1 tab po qday for depression PAROXETINE HCL 10660364664 Active Carlton Hu MD Active CYMBALTA 30 MG CPEP 1 cap by mouth daily DULOXE SNEHA HCL 93024601434 Active Carlton Hu MD Active CHERATUSSIN AC 100-10 MG/5ML SYRP 5ml po q6hr PRN Cough GUAIFENESIN-CODEINE 24281395940 No Longer Active Carlton Hu MD Active MEDROL (REYNA) 4 MG TABS 6 tabs on day 1, 5 tabs on d ay 2, 4 tabs on day 3, 3 tabs on day 4, 2 tabs on day 5, 1 tab on day 6 METHYLPREDNISOLONE 07505975464 No Longer Active Perez Mora MD Active AZITHROMYCIN 250 MG TABS 2 po qd x 1 day, then 1 po qd x 4 days AZITHROMYCIN 30142594625 No Longer Active Perez Mora MD Active PROPRANOLOL HCL 60 MG TABS 1 PO Q D PROPRANOL OL HCL 80965827599 No Longer Active Perez Mora MD Active CHERATUSSIN AC 100-10 MG/5ML SYRP take one tsp po Q 6hours prn c ough GUAIFENESIN-CODEINE 08403014746 No Longer Active Perez Means Active AUGMENTIN 875-125 MG TAB 1 tab by mouth twice daily with food 20 12/03/31 AMOXICILLIN-POT CLAVULANATE 29978424381 No Longer Active Chanel Mora MD Active CHERATUSSIN AC 100-10 MG/5ML SYRP 1 tsp by mouth every 4 hours as needed for cough GUAIFENESIN-CODEINE 21852726157 No Longer Activ e Hugo Restrepo MD Active ACETAMINOPHEN-CODEINE #3 300-30 MG TABS 1 PO Q 4-6 HRS PRN PAIN ACETAMINOPHEN-CODEINE 40494910033 No Longer Active Hguo Restrepo MD Active LEVAQUIN 500 MG TABS take one po QD LEVOFLOXACI N 51014150883 No Longer Active Griffin HERNANDEZ Active PREDNISONE 20 MG TAB Take 3 tabs daily for 3 days , 2 tabs daily for 3 days, 1 tab daily for 3 days, 1/2 tab daily for 3 days P REDNISONE 59125537093 No Longer Active Carlton Hu MD Active AVELOX 400 MG TABS 1 tab by mouth daily MOXIFLO XACIN HCL 26411637138 No Longer Active Carlton Hu MD Active CHERATUSSIN AC 100-10 MG/5ML SYRP 1 tsp by mouth every 4 hours as needed for cough GUAIFENESIN-CODEINE 88408427442 No Longer Activ e Hugo Restrepo MD Active AVELOX 400 MG TABS 1 tab by mouth daily MOXIFLO XACIN HCL 49056074544 No Longer Active Marcy De La Rosa MD PhD Active TERBINAFINE HCL 250 MG TABS 1 qDay TERBINAF INE HCL 06618266412 No Longer Active Marcy De La Rosa MD PhD Active CHERATUSSIN AC 100-10 MG/5ML SYRP 1 tsp by mouth every 4 hours as needed for cough GUAIFENESIN-CODEINE 50647675737 No Longer Activ e Marcy De La Rosa MD PhD Active AVELOX 400 MG TABS 1 tab by mouth daily MOXIFLO XACIN HCL 83393363140 No Longer Active Marcy De La Rosa MD PhD Active HYDROCODONE-ACETAMINOPHEN 5-325 MG TABS 1 po q 6hr PRN cough 201 05/09/16 HYDROCODONE-ACETAMINOPHEN 97675797642 No Longer Active Marcy De La Rosa MD PhD Active PREDNISONE 20 MG TAB 2 tabs daily for 3 days, 1 t ab daily for 3 days, 1/2 tab daily for 2 days PREDNISONE 22604926288 No Longer Active Carlton Hu MD Active CEFDINIR 300 MG CAPS by mouth twice a day CEFDI ODILIA 77553781689 No Longer Active Carlton Hu MD Active ZOCOR 40 MG TAB 1 tab by mouth daily SIMVASTATIN 73386005543 Active Carlton Hu MD Active HYDROCHLOROTHIAZIDE 25 MG TABS 1 TAB PO DAILY H YDROCHLOROTHIAZIDE 12546783703 Active Carlton Hu MD Active ACETAMINOPHEN-CODEINE #3 300-30 MG TABS 1 tablet po q 4-6hrs prn pain ACETAMINOPHEN-CODEINE 42982111161 No Longer Active Ridge Bess DO Active ZITHROMAX 250 MG TAB 2 po today, then 1 po q days 2-5 AZITHROMYCIN 24693497968 No Longer Active Carlton Hu MD Acti ve CHERATUSSIN AC 100-10 MG/5ML SYRP take 1 tsp po q4-6 hours prn c ough GUAIFENESIN-CODEINE 01343849640 No Longer Active Carlton Hu MD Active ACETAMINOPHEN-CODEINE #3 300-30 MG TABS 1 PO Q 4-6 HR PRN PAIN 2 ACETAMINOPHEN-CODEINE 63910781530 No Longer Active Carlton rich MD Active LORTAB 7.5-500 MG/15ML ELIX 7.5 ml po q 4 hour prn cough HYDROCODONE-ACETAMINOPHEN 68207334468 No Longer Active Carlton Hu MD Active PREDNISONE 20 MG TAB 1 po bid 3 days, then 1 po q day 3 days 201 05/03/07 PREDNISONE 79978794747 No Longer Active Carlton Hu MD Active ELMIRON 100 MG CAPS 2 tablets in the am and 1 tablet at hs PENTOSAN POLYSULFATE SODIUM 64826020217 Active Gracie [place] Active CEFDINIR 300 MG CAPS by mouth twice a day CEFDI ODILIA 08492429051 No Longer Active Carlton Hu MD Active CEFDINIR 300 MG CAPS by mouth twice a day CEFDI ODILIA 13007481950 No Longer Active Carlton Hu MD Active CEFDINIR 300 MG CAPS by mouth twice a day CEFDI ODILIA 68731329153 No Longer Active Carlton Hu MD Active TESSALON PERLES 100 MG CAP 1 tablet by mouth 3 times daily a s needed for cough BENZONATATE 36707832956 No Longer Active Carlton bustamante MD Active CEFDINIR 300 MG CAPS by mouth twice a day CEFDI ODILIA 88592414298 No Longer Active Carlton Hu MD Active ZITHROMAX Z-REYNA 250 MG TABS 2 today, then 1 daily for 4 days 201 04/09/17 AZITHROMYCIN 83000108713 No Longer Active Hugo Restrepo MD Active PREMARIN 0.625 MG TABS TAKE 1 TAB BY MOUTH DAILY ESTROGENS CONJUGATED 39584066344 Active Carlton Hu MD Active TESSALON PERLES 100 MG CAP 1 tablet by mouth 3 times daily a s needed for cough TESSALON PERLES 100 MG CAP 838676 BENZONATATE I nactive PREDNISONE 20 MG TAB 1 po bid 3 days, then 1 po q day 3 days 201 05/03/07 PREDNISONE 20 MG TAB 182433 PREDNISONE Inactive LORTAB 7.5-500 MG/15ML ELIX 7.5 ml po q 4 hour prn cough LORTAB 7.5-500 MG/15ML ELIX HYDROCODONE-ACETAMINOPHEN Inacti ve ACETAMINOPHEN-CODEINE #3 300-30 MG TABS 1 PO Q 4-6 HR PRN PAIN 2 ACETAMINOPHEN-CODEINE #3 300-30 MG TABS 107993 ACETAMIN OPHEN-CODEINE Inactive CHERATUSSIN AC 100-10 MG/5ML SYRP take 1 tsp po q4-6 hours prn c ough CHERATUSSIN AC 100-10 MG/5ML SYRP 767368 GUAIFENESIN-CO DEINE Inactive ACETAMINOPHEN-CODEINE #3 300-30 MG TABS 1 tablet po q 4-6hrs prn pain ACETAMINOPHEN-CODEINE #3 300-30 MG TABS 711233 ACETAMIN OPHEN-CODEINE Inactive HYDROCODONE-ACETAMINOPHEN 5-325 MG TABS 1 po q 6hr PRN cough 201 05/09/16 HYDROCODONE-ACETAMINOPHEN 5-325 MG TABS 245413 HYDROCODONE-ACETAMINOPHEN Inactive AVELOX 400 MG TABS 1 tab by mouth daily A VELOX 400 MG TABS 214239 MOXIFLOXACIN HCL Inactive CHERATUSSIN AC 100-10 MG/5ML SYRP 1 tsp by mouth every 4 hours as needed for cough CHERATUSSIN AC 100-10 MG/5ML SYRP 001993 GUAIFENESIN-CODEINE Inactive TERBINAFINE HCL 250 MG TABS 1 qDay TERBINAFINE HCL 250 MG TABS 527399 TERBINAFINE HCL Inactive CHERATUSSIN AC 100-10 MG/5ML SYRP 1 tsp by mouth every 4 hours as needed for cough CHERATUSSIN AC 100-10 MG/5ML SYRP 496264 GUAIFENESIN-CODEINE Inactive ACETAMINOPHEN-CODEINE #3 300-30 MG TABS 1 PO Q 4-6 HRS PRN PAIN ACETAMINOPHEN-CODEINE #3 300-30 MG TABS 328096 ACETAMINOPHEN-CODEIN E Inactive CHERATUSSIN AC 100-10 MG/5ML SYRP 1 tsp by mouth every 4 hours as needed for cough CHERATUSSIN AC 100-10 MG/5ML SYRP 294655 GUAIFENESIN-CODEINE Inactive AUGMENTIN 875-125 MG TAB 1 tab by mouth twice daily with food 20 12/03/31 AUGMENTIN 875-125 MG TAB 404281 AMOXICILLIN-POT CLAVULA EFE Inactive CHERATUSSIN AC 100-10 MG/5ML SYRP take one tsp po Q 6hours prn c ough CHERATUSSIN AC 100-10 MG/5ML SYRP 757403 GUAIFENESIN-CO DEINE Inactive PROPRANOLOL HCL 60 MG TABS 1 PO Q D P ROPRANOLOL HCL 60 MG TABS 814558 PROPRANOLOL HCL Inactive TOPAMAX 50 MG TABS take 1 tab po BID for migraines. 12/07/10 TOPAMAX 50 MG TABS 876764 TOPIRAMATE Inactive TOPAMAX 25 MG TABS 1 qHS x 1 week, then 1 BID x 1 week, then 1 qAM and 2 qHS x 1 week, then 2 BID (migraine prevention) TOPAMAX 2 5 MG TABS 857512 TOPIRAMATE Inactive LYRICA 75 MG CAPS TAKE 1 CAPSULE BY MOUTH TWICE DAILY LYRICA 75 MG CAPS PREGABALIN Inactive SYMBICORT 160-4.5 MCG/ACT AERO 2 puffs bid with rinse after 2011 SYMBICORT 160-4.5 MCG/ACT AERO BUDESONIDE-FORMOT SÁNCHEZ FUMARATE Inactive ZITHROMAX Z-REYNA 250 MG TABS 2 today, then 1 daily for 4 days 201 04/09/17 ZITHROMAX Z-REYNA 250 MG TABS 0286515 AZITHROMYCIN Inac tive CEFDINIR 300 MG CAPS [...] q days 2-5 ZITHROMAX 250 MG TAB 8421581 AZITHROMYCIN Inactive CEFDINIR 300 MG CAPS by mouth twice a day CEFDINIR 300 MG CAPS 20020704 CEFDINIR Inactive PREDNISONE 20 MG TAB 2 tabs daily for 3 days, 1 t ab daily for 3 days, 1/2 tab daily for 2 days PREDNISONE 20 MG TAB 904428 PREDNISON E Inactive AVELOX 400 MG TABS 1 tab by mouth daily A VELOX 400 MG TABS 812738 MOXIFLOXACIN HCL Inactive AVELOX 400 MG TABS 1 tab by mouth daily A VELOX 400 MG TABS 957645 MOXIFLOXACIN HCL Inactive PREDNISONE 20 MG TAB Take 3 tabs daily for 3 days , 2 tabs daily for 3 days, 1 tab daily for 3 days, 1/2 tab daily for 3 days PREDNISONE 20 MG TAB 418819 PREDNISONE Inactive LEVAQUIN 500 MG TABS take one po QD LEVAQUIN 50 0 MG TABS 631582 LEVOFLOXACIN Inactive AZITHROMYCIN 250 MG TABS 2 po qd x 1 day, then 1 po qd x 4 days AZITHROMYCIN 250 MG TABS 3133562 AZITHROMYCIN Inactiv e MEDROL (REYNA) 4 MG TABS 6 tabs on day 1, 5 tabs on d ay 2, 4 tabs on day 3, 3 tabs on day 4, 2 tabs on day 5, 1 tab on day 6 MEDROL (REYNA) 4 MG TABS METHYLPREDNISOLONE Inactive CHERATUSSIN AC 100-10 MG/5ML SYRP 5ml po q6hr PRN Cough CHERATUSSIN AC 100-10 MG/5ML SYRP 607747 GUAIFENESIN-CODEINE Inacti ve TRIAMCINOLONE ACETONIDE 0.1 % CREA apply three times daily prn r beatrice TRIAMCINOLONE ACETONIDE 0.1 % CREA 1405498 TRIAMCINOLONE ACETONIDE Inactive AZITHROMYCIN 250 MG TABS 2 po qd x 1 day, then 1 po qd x 4 days AZITHROMYCIN 250 MG TABS 6403668 AZITHROMYCIN Inactiv e MEDROL (REYNA) 4 MG [...] - 3141-9 149 [lb_av] Weigh t Measured blood pressure, diastolic - 8462-4 70 mm[Hg] BP srinivasan blood pressure, systolic - 8480-6 105 mm[Hg] BP sys height E&M - 8302-2 53 [in_us] Bdy h eight pulse rate E&M - 8867-4 84 /min H eart rate temperature E&M 97.8 [degF] Body temp erature weight E&M - 3141-9 151.19 [lb_av] Weigh t Measured blood pressure, diastolic - 8462-4 68 mm[Hg] BP srinivasan blood pressure, systolic - 8480-6 104 mm[Hg] BP sys height E&M - 8302-2 152 [in_us] Bdy h eight pulse rate E&M - 8867-4 123 /min H eart rate temperature E&M 99.2 [degF] Body temp erature weight E&M - 3141-9 152.38 [lb_av] Weigh t Measured Diagnostic Results Date Name Value Unit Range Description Lab Report: CBC, Comp. Metabolic Panel, Lipid Panel, Thyroid Stimulating ... - Chemistry sodium, serum 143 mmol/L 026-384 5701/01/24 potassium, serum 4.1 mmol/L 3.5-5.2 chloride, serum [...] 0.60 mg/dL 0.00-1.00 cholesterol, serum 227 mg/dL 209-134 8470/01/24 triglyceride, serum, fasting 97 mg/dL 30-200 HDL [...] mg/dL Encounters Code Encounter Date Provider Facility CPT-46330 Level 3 Est. Patient 10:03:07 CDT Perez Mora MD [facility] CPT-69681 Level 3 Est. Patient 19:50:35 [employer] Carlton rich MD [facility] CPT-59483 Level 4 Est. Patient 18:05:01 [employer] Carlton rich MD [facility] CPT-72410 Level 3 Est. Patient 10:45:55 [employer] Hugo Restrepo MD [facility] CPT-25122 Level 3 Est. Patient 14:12:49 CDT Griffin HERNANDEZ [facility] CPT-37698 Level 3 Est. Patient 17:37:24 CDT Carlton rich MD [facility] CPT-73120 Level 3 Est. Patient 16:51:54 CDT Carlton rich MD [facility] CPT-38304 Level 3 Est. Patient 12:18:11 CDT Hugo Restrepo MD [facility] CPT-98161 Level 3 Est. Patient 11:30:25 CDT Marcy crisostomo MD PhD [facility] CPT-32469 Level 3 Est. Patient 12:00:47 [employer] Carlton rich MD [facility] CPT-79002 Level 3 Est. Patient 16:31:06 [employer] Carlton rich MD [facility] CPT-78430 Level 3 Est. Patient 16:23:24 [employer] Ridge tam DO [facility] CPT-71629 Level 3 Est. Patient 12:34:12 CDT Carlton rich MD [facility] CPT-73200 Level 2 Est. Patient 15:43:33 CDT Robi armstrong MD [facility] CPT-04749 Level 4 Est. Patient 14:04:44 CDT Carlton rich MD [facility] CPT-03656 Level 3 Est. Patient 05:47:59 CDT Ridge Jaun Celeste anel DO [facility] CPT-17238 Level 3 Est. Patient 13:12:53 [employer] Carlton rich MD [facility] CPT-95344 Level 3 Est. Patient 14:26:53 CDT Hugo Restrepo MD [facility] Procedures Code Procedure Name Date Entry Date Standard Desc ription CPT-73125 Abx/Therapy Injection 13:28:47 [employer] CPT-J2930 Solu Medrol 125 mg (Methyl Prednisolone Sodium Succinate) 12:00:47 [employer] CPT-16697 Venipuncture Draw Fee 11:33:31 CDT CPT-30958 EKG Trac and Interp 11:21:09 CDT CPT-99401 Chest 2V Frontal and Lat 11:21:09 CDT 12/15 CPT-71584 Venipuncture Draw Fee 08:02:34 CDT CPT-15403 Chest 2V Frontal and Lat 05:47:59 CDT 06/05
--- OUTSIDE RECORDS SUMMARY | 2019-10-08 10:20 | XMS REPORT | Clinical Summary ---
Author Author Caitlin, Juliana Martinez Organization [facility] Address Unknown Phone Unavailable Allergies, Adverse Reactions, [...] daily x 10 days 20 14/04/28 AMOXICILLIN [id number] No Longer Active Carlton Hu MD Active AMOXICILLIN 500 MG CAP 1 tab by mouth 3 times daily x 10 days 20 13/03/08 AMOXICILLIN 48538776328 No Longer Active Carlton Hu MD Active CHERATUSSIN AC 100-10 MG/5ML SYRP 1 tsp by mouth every 4 hours as needed for cough GUAIFENESIN-CODEINE 98035731606 Active Carlton banks MD Active CYCLOBENZAPRINE HCL 10 MG TABS 1 tablet by mouth BID prn had pain 2 CYCLOBENZAPRINE HCL 23898360146 Active Carlton Hu MD A ctive PROMETHAZINE-CODEINE 6.25-10 MG/5ML SYRP 1 tsp by mouth ever y 8 hours prn cough PROMETHAZINE-CODEINE 85470952042 No Longer Active Robert Hu MD Active MEDROL (REYNA) 4 MG TABS 6 pills x 1 day, then 5 pill s x 1 day then 4 pills x 1 day, then 3 pills x 1 day, then 2 pills x 1 day, then 1 pill x 1 day, then stop METHYLPREDNISOLONE 60623871717 No Longer Active Parris Mora MD Active AZITHROMYCIN 250 MG TABS 2 po qd x 1 day, then 1 po qd x 4 days AZITHROMYCIN 45830745226 No Longer Active Perez Mora MD Active SYMBICORT 160-4.5 MCG/ACT AERO 2 puffs bid with rinse after 2011 BUDESONIDE-FORMOTEROL FUMARATE 70999962762 No Longer Active Perez Mora MD Active LYRICA 75 MG CAPS TAKE 1 CAPSULE BY MOUTH TWICE DAILY 2013 PREGABALIN 41241124179 No Longer Active Carlton Hu MD Active LYRICA 100 MG CAPS Take 1 tab po BID for fibromyalgia PREGABALIN 25667425637 Active Carlton Hu MD Active TOPAMAX 25 MG TABS 1 qHS x 1 week, then 1 BID x 1 week, then 1 qAM and 2 qHS x 1 week, then 2 BID (migraine prevention) TOPIRAMAT E 55188803326 No Longer Active Jerica FUENTES Active TOPAMAX 50 MG TABS take 1 tab po BID for migraines. 12/07/10 TOPIRAMATE 13207885405 No Longer Active Jerica FUENTES Ac tive TOPAMAX 100 MG TABS Take 1 tablet po bid TOPIRAMATE 4999 4252331 Active Carlton Hu MD Active TRIAMCINOLONE ACETONIDE 0.1 % CREA apply three times daily prn r beatrice TRIAMCINOLONE ACETONIDE 54224676854 No Longer Active Carlton Hu MD Active PAXIL 40 MG TAB take 1 tab po qday for depression PAROXETINE HCL 74291836595 Active Carlton Hu MD Active CYMBALTA 30 MG CPEP 1 cap by mouth daily DULOXE SNEHA HCL 07423371959 Active Carlton Hu MD Active CHERATUSSIN AC 100-10 MG/5ML SYRP 5ml po q6hr PRN Cough GUAIFENESIN-CODEINE 54384223379 No Longer Active Carlton Hu MD Active MEDROL (REYNA) 4 MG TABS 6 tabs on day 1, 5 tabs on d ay 2, 4 tabs on day 3, 3 tabs on day 4, 2 tabs on day 5, 1 tab on day 6 METHYLPREDNISOLONE 81210853116 No Longer Active Perez Mora MD Active AZITHROMYCIN 250 MG TABS 2 po qd x 1 day, then 1 po qd x 4 days AZITHROMYCIN 55272732207 No Longer Active Perez Mora MD Active PROPRANOLOL HCL 60 MG TABS 1 PO Q D PROPRANOL OL HCL 15367427719 No Longer Active Perez Mora MD Active CHERATUSSIN AC 100-10 MG/5ML SYRP take one tsp po Q 6hours prn c ough GUAIFENESIN-CODEINE 52586586800 No Longer Active Perez Means Active AUGMENTIN 875-125 MG TAB 1 tab by mouth twice daily with food 20 12/03/31 AMOXICILLIN-POT CLAVULANATE 10961096445 No Longer Active Chanel Mora MD Active CHERATUSSIN AC 100-10 MG/5ML SYRP 1 tsp by mouth every 4 hours as needed for cough GUAIFENESIN-CODEINE 14286443958 No Longer Activ lidia Restrepo MD Active ACETAMINOPHEN-CODEINE #3 300-30 MG TABS 1 PO Q 4-6 HRS PRN PAIN ACETAMINOPHEN-CODEINE 11233652141 No Longer Active Hugo Restrepo MD Active LEVAQUIN 500 MG TABS take one po QD LEVOFLOXACI N 05983592771 No Longer Active Griffin HERNANDEZ Active PREDNISONE 20 MG TAB Take 3 tabs daily for 3 days , 2 tabs daily for 3 days, 1 tab daily for 3 days, 1/2 tab daily for 3 days P REDNISONE 51022733027 No Longer Active Carlton Hu MD Active AVELOX 400 MG TABS 1 tab by mouth daily MOXIFLO XACIN HCL 81358343930 No Longer Active Carlton Hu MD Active CHERATUSSIN AC 100-10 MG/5ML SYRP 1 tsp by mouth every 4 hours as needed for cough GUAIFENESIN-CODEINE 43188185066 No Longer Activ e Hugo Restrepo MD Active AVELOX 400 MG TABS 1 tab by mouth daily MOXIFLO XACIN HCL 20165417426 No Longer Active Marcy De La Rosa MD PhD Active TERBINAFINE HCL 250 MG TABS 1 qDay TERBINAF INE HCL 96295047940 No Longer Active Marcy De La Rosa MD PhD Active CHERATUSSIN AC 100-10 MG/5ML SYRP 1 tsp by mouth every 4 hours as needed for cough GUAIFENESIN-CODEINE 82768318788 No Longer Activ e Marcy De La Rosa MD PhD Active AVELOX 400 MG TABS 1 tab by mouth daily MOXIFLO XACIN HCL 94660864570 No Longer Active Marcy De La Rosa MD PhD Active HYDROCODONE-ACETAMINOPHEN 5-325 MG TABS 1 po q 6hr PRN cough 201 05/09/16 HYDROCODONE-ACETAMINOPHEN 13954708765 No Longer Active Marcy De La Rosa MD PhD Active PREDNISONE 20 MG TAB 2 tabs daily for 3 days, 1 t ab daily for 3 days, 1/2 tab daily for 2 days PREDNISONE 57823291728 No Longer Active Carlton Hu MD Active CEFDINIR 300 MG CAPS by mouth twice a day CEFDI ODILIA 56605885473 No Longer Active Carlton Hu MD Active ZOCOR 40 MG TAB 1 tab by mouth daily SIMVASTATIN 55721333578 Active Carlton Hu MD Active HYDROCHLOROTHIAZIDE 25 MG TABS 1 TAB PO DAILY H YDROCHLOROTHIAZIDE 95234455180 Active Carlton Hu MD Active ACETAMINOPHEN-CODEINE #3 300-30 MG TABS 1 tablet po q 4-6hrs prn pain ACETAMINOPHEN-CODEINE 88089123487 No Longer Active Ridge Bess DO Active ZITHROMAX 250 MG TAB 2 po today, then 1 po q days 2-5 AZITHROMYCIN 62705049473 No Longer Active Carlton Hu MD Acti ve CHERATUSSIN AC 100-10 MG/5ML SYRP take 1 tsp po q4-6 hours prn c ough GUAIFENESIN-CODEINE 92964222195 No Longer Active Carlton Hu MD Active ACETAMINOPHEN-CODEINE #3 300-30 MG TABS 1 PO Q 4-6 HR PRN PAIN 2 ACETAMINOPHEN-CODEINE 21343910232 No Longer Active Carlton rich MD Active LORTAB 7.5-500 MG/15ML ELIX 7.5 ml po q 4 hour prn cough HYDROCODONE-ACETAMINOPHEN 61971504965 No Longer Active Carlton Hu MD Active PREDNISONE 20 MG TAB 1 po bid 3 days, then 1 po q day 3 days 201 05/03/07 PREDNISONE 42436955581 No Longer Active Carlton Hu MD Active ELMIRON 100 MG CAPS 2 tablets in the am and 1 tablet at hs PENTOSAN POLYSULFATE SODIUM 23643556850 Active Gracie Alda Active CEFDINIR 300 MG CAPS by mouth twice a day CEFDI ODILIA 97721693095 No Longer Active Carlton Hu MD Active CEFDINIR 300 MG CAPS by mouth twice a day CEFDI ODILIA 51454577878 No Longer Active Carlton Hu MD Active CEFDINIR 300 MG CAPS by mouth twice a day CEFDI ODILIA 40058665402 No Longer Active Carlton Hu MD Active TESSALON PERLES 100 MG CAP 1 tablet by mouth 3 times daily a s needed for cough BENZONATATE 65873715264 No Longer Active Carlton bustamante MD Active CEFDINIR 300 MG CAPS by mouth twice a day CEFDI ODILIA 22901554274 No Longer Active Carlton Hu MD Active ZITHROMAX Z-REYNA 250 MG TABS 2 today, then 1 daily for 4 days 201 04/09/17 AZITHROMYCIN 32001445050 No Longer Active Hugo Restrepo MD Active PREMARIN 0.625 MG TABS TAKE 1 TAB BY MOUTH DAILY ESTROGENS CONJUGATED 25289176491 Active Carlton Hu MD Active TESSALON PERLES 100 MG CAP 1 tablet by mouth 3 times daily a s needed for cough TESSALON PERLES 100 MG CAP 938248 BENZONATATE I nactive PREDNISONE 20 MG TAB 1 po bid 3 days, then 1 po q day 3 days 201 05/03/07 PREDNISONE 20 MG TAB 398201 PREDNISONE Inactive LORTAB 7.5-500 MG/15ML ELIX 7.5 ml po q 4 hour prn cough LORTAB 7.5-500 MG/15ML ELIX HYDROCODONE-ACETAMINOPHEN Inacti ve ACETAMINOPHEN-CODEINE #3 300-30 MG TABS 1 PO Q 4-6 HR PRN PAIN 2 ACETAMINOPHEN-CODEINE #3 300-30 MG TABS 872553 ACETAMIN OPHEN-CODEINE Inactive CHERATUSSIN AC 100-10 MG/5ML SYRP take 1 tsp po q4-6 hours prn c ough CHERATUSSIN AC 100-10 MG/5ML SYRP 438456 GUAIFENESIN-CO DEINE Inactive ACETAMINOPHEN-CODEINE #3 300-30 MG TABS 1 tablet po q 4-6hrs prn pain ACETAMINOPHEN-CODEINE #3 300-30 MG TABS 059225 ACETAMIN OPHEN-CODEINE Inactive HYDROCODONE-ACETAMINOPHEN 5-325 MG TABS 1 po q 6hr PRN cough 201 05/09/16 HYDROCODONE-ACETAMINOPHEN 5-325 MG TABS 349615 HYDROCODONE-ACETAMINOPHEN Inactive AVELOX 400 MG TABS 1 tab by mouth daily A VELOX 400 MG TABS 152019 MOXIFLOXACIN HCL Inactive CHERATUSSIN AC 100-10 MG/5ML SYRP 1 tsp by mouth every 4 hours as needed for cough CHERATUSSIN AC 100-10 MG/5ML SYRP 332244 GUAIFENESIN-CODEINE Inactive TERBINAFINE HCL 250 MG TABS 1 qDay TERBINAFINE HCL 250 MG TABS 719879 TERBINAFINE HCL Inactive CHERATUSSIN AC 100-10 MG/5ML SYRP 1 tsp by mouth every 4 hours as needed for cough CHERATUSSIN AC 100-10 MG/5ML SYRP 523990 GUAIFENESIN-CODEINE Inactive ACETAMINOPHEN-CODEINE #3 300-30 MG TABS 1 PO Q 4-6 HRS PRN PAIN ACETAMINOPHEN-CODEINE #3 300-30 MG TABS 708904 ACETAMINOPHEN-CODEIN E Inactive CHERATUSSIN AC 100-10 MG/5ML SYRP 1 tsp by mouth every 4 hours as needed for cough CHERATUSSIN AC 100-10 MG/5ML SYRP 977621 GUAIFENESIN-CODEINE Inactive AUGMENTIN 875-125 MG TAB 1 tab by mouth twice daily with food 20 12/03/31 AUGMENTIN 875-125 MG TAB 712256 AMOXICILLIN-POT CLAVULA EFE Inactive CHERATUSSIN AC 100-10 MG/5ML SYRP take one tsp po Q 6hours prn c ough CHERATUSSIN AC 100-10 MG/5ML SYRP 386476 GUAIFENESIN-CO DEINE Inactive PROPRANOLOL HCL 60 MG TABS 1 PO Q D P ROPRANOLOL HCL 60 MG TABS 578376 PROPRANOLOL HCL Inactive TOPAMAX 50 MG TABS take 1 tab po BID for migraines. 12/07/10 TOPAMAX 50 MG TABS 890368 TOPIRAMATE Inactive TOPAMAX 25 MG TABS 1 qHS x 1 week, then 1 BID x 1 week, then 1 qAM and 2 qHS x 1 week, then 2 BID (migraine prevention) TOPAMAX 2 5 MG TABS 232685 TOPIRAMATE Inactive LYRICA 75 MG CAPS TAKE 1 CAPSULE BY MOUTH TWICE DAILY LYRICA 75 MG CAPS PREGABALIN Inactive SYMBICORT 160-4.5 MCG/ACT AERO 2 puffs bid with rinse after 2011 SYMBICORT 160-4.5 MCG/ACT AERO BUDESONIDE-FORMOT SÁNCHEZ FUMARATE Inactive PROMETHAZINE-CODEINE 6.25-10 MG/5ML SYRP 1 tsp by mouth ever y 8 hours prn cough PROMETHAZINE-CODEINE 6.25-10 MG/5ML SYRP 740894 PROMETHAZINE-CODEINE Inactive ZITHROMAX Z-REYNA 250 MG TABS 2 today, then 1 daily for 4 days 201 04/09/17 ZITHROMAX Z-REYNA 250 MG TABS 1241366 AZITHROMYCIN Inac tive CEFDINIR 300 MG CAPS by mouth twice a day CEFDINIR 300 MG CAPS 20020704 CEFDINIR Inactive CEFDINIR 300 MG CAPS by mouth twice a day CEFDINIR 300 MG CAPS 20020704 CEFDINIR Inactive CEFDINIR 300 MG CAPS by mouth twice a day CEFDINIR 300 MG CAPS 716587 CEFDINIR Inactive CEFDINIR 300 MG CAPS by mouth twice a day CEFDINIR 300 MG CAPS 20020704 CEFDINIR Inactive ZITHROMAX 250 MG TAB 2 po today, then 1 po q days 2-5 ZITHROMAX 250 MG TAB 6727272 AZITHROMYCIN Inactive CEFDINIR 300 MG CAPS by mouth twice a day CEFDINIR 300 MG CAPS 20020704 CEFDINIR Inactive PREDNISONE 20 MG TAB 2 tabs daily for 3 days, 1 t ab daily for 3 days, 1/2 tab daily for 2 days PREDNISONE 20 MG TAB 184321 PREDNISON E Inactive AVELOX 400 MG TABS 1 tab by mouth daily A VELOX 400 MG TABS 490536 MOXIFLOXACIN HCL Inactive AVELOX 400 MG TABS 1 tab by mouth daily A VELOX 400 MG TABS 296429 MOXIFLOXACIN HCL Inactive PREDNISONE 20 MG TAB Take 3 tabs daily for 3 days , 2 tabs daily for 3 days, 1 tab daily for 3 days, 1/2 tab daily for 3 days PREDNISONE 20 MG TAB 127270 PREDNISONE Inactive LEVAQUIN 500 MG TABS take one po QD LEVAQUIN 50 0 MG TABS 715758 LEVOFLOXACIN Inactive AZITHROMYCIN 250 MG TABS 2 po qd x 1 day, then 1 po qd x 4 days AZITHROMYCIN 250 MG TABS 8318156 AZITHROMYCIN Inactiv e MEDROL (REYNA) 4 MG TABS 6 tabs on day 1, 5 tabs on d ay 2, 4 tabs on day 3, 3 tabs on day 4, 2 tabs on day 5, 1 tab on day 6 MEDROL (REYNA) 4 MG TABS METHYLPREDNISOLONE Inactive CHERATUSSIN AC 100-10 MG/5ML SYRP 5ml po q6hr PRN Cough CHERATUSSIN AC 100-10 MG/5ML SYRP 298869 GUAIFENESIN-CODEINE Inacti ve TRIAMCINOLONE ACETONIDE 0.1 % CREA apply three times daily prn r beatrice TRIAMCINOLONE ACETONIDE 0.1 % CREA 9588152 TRIAMCINOLONE ACETONIDE Inactive AZITHROMYCIN 250 MG TABS 2 po qd x 1 day, then 1 po qd x 4 days AZITHROMYCIN 250 MG TABS 3644200 AZITHROMYCIN Inactiv e MEDROL (REYNA) 4 MG [...] days 20 13/03/08 AMOXICILLIN 500 MG CAP 706376 AMOXICILLIN Inactive AMOXICILLIN 500 MG CAP 1 tab by mouth 3 times daily x 10 days 20 14/04/28 AMOXICILLIN 500 MG CAP 337478 AMOXICILLIN Inactive Vital Signs Date Name Value [...] [phone] Encounters Code Encounter Date Provider Facility CPT-36612 Level 3 Est. Patient 10:03:07 CDT Perez Mora MD [facility]-57976 Level 3 Est. Patient 19:50:35 FOOD SCIENCE TECHNICIAN Carlton rich MD [facility]-56331 Level 4 Est. Patient 18:05:01 FOOD SCIENCE TECHNICIAN Carlton rich MD [facility]-84573 Level 3 Est. Patient 10:45:55 FOOD SCIENCE TECHNICIAN Hugo Restrepo MD [facility] [place]-21920 Level 3 Est. Patient 14:12:49 CDT Griffin HERNANDEZ [facility] [place]-24778 Level 3 Est. Patient 17:37:24 CDT Carlton rich MD [facility]-42494 Level 3 Est. Patient 16:51:54 CDT Carlton rich MD [facility] [place]-59489 Level 3 Est. Patient 12:18:11 CDT Hugo Restrepo MD [facility]-46821 Level 3 Est. Patient 11:30:25 CDT Marcy crisostomo MD PhD [facility]-52759 Level 3 Est. Patient 12:00:47 FOOD SCIENCE TECHNICIAN Carlton rich MD [facility]-34444 Level 3 Est. Patient 16:31:06 FOOD SCIENCE TECHNICIAN Carlton rich MD [facility] [place]-65391 Level 3 Est. Patient 16:23:24 FOOD SCIENCE TECHNICIAN Ridge tam DO [facility] [place]-12736 Level 3 Est. Patient 12:34:12 CDT Carlton rich MD [facility] CPT-65585 Level 2 Est. Patient 15:43:33 CDT Robi armstrong MD [facility] CPT-21904 Level 4 Est. Patient 14:04:44 CDT Carlton rich MD [facility] CPT-20844 Level 3 Est. Patient 05:47:59 CDT Ridge tam DO [facility] CPT-26420 Level 3 Est. Patient 13:12:53 FOOD SCIENCE TECHNICIAN Carlton rich MD [facility] CPT-62844 Level 3 Est. Patient 14:26:53 CDT Hugo Restrepo MD [facility] Procedures Code Procedure Name Date Entry Date Standard Desc ription CPT-36059 Fluzone Quadrivalent Intramuscular Suspe nsion 0.5 ML 14:31:55 CDT CPT-60883 Abx/Therapy Injection 13:28:47 FOOD SCIENCE TECHNICIAN CPT-J2930 Solu Medrol 125 mg (Methyl Prednisolone Sodium Succinate) 12:00:47 FOOD SCIENCE TECHNICIAN CPT-79993 Venipuncture Draw Fee 11:33:31 CDT CPT-65886 EKG Trac and Interp 11:21:09 CDT CPT-02086 Chest 2V Frontal and Lat 11:21:09 CDT 12/15 CPT-28893 Venipuncture Draw Fee 08:02:34 CDT CPT-93086 Chest 2V Frontal and Lat 05:47:59 CDT 06/05
--- OUTSIDE RECORDS SUMMARY | 2019-10-08 10:20 | XMS REPORT | Clinical Summary ---
Author Author Caitlin, Juliana Martinez Organization [facility] Address Unknown Phone Unavailable Allergies, Adverse [...] daily x 10 days 20 14/04/28 AMOXICILLIN [id number] No Longer Active Carlton Hu MD Active AMOXICILLIN 500 MG CAP 1 tab by mouth 3 times daily x 10 days 20 13/03/08 AMOXICILLIN 98716878729 No Longer Active Carlton Hu MD Active CHERATUSSIN AC 100-10 MG/5ML SYRP 1 tsp by mouth every 4 hours as needed for cough GUAIFENESIN-CODEINE 84854621619 Active Carlton banks MD Active CYCLOBENZAPRINE HCL 10 MG TABS 1 tablet by mouth BID prn had pain 2 CYCLOBENZAPRINE HCL 87700903195 Active Carlton Hu MD A ctive PROMETHAZINE-CODEINE 6.25-10 MG/5ML SYRP 1 tsp by mouth ever y 8 hours prn cough PROMETHAZINE-CODEINE 56704255306 No Longer Active Robert Hu MD Active MEDROL (REYNA) 4 MG TABS 6 pills x 1 day, then 5 pill s x 1 day then 4 pills x 1 day, then 3 pills x 1 day, then 2 pills x 1 day, then 1 pill x 1 day, then stop METHYLPREDNISOLONE 24920440459 No Longer Active Parris Mora MD Active AZITHROMYCIN 250 MG TABS 2 po qd x 1 day, then 1 po qd x 4 days AZITHROMYCIN 17717428495 No Longer Active Perez Mora MD Active SYMBICORT 160-4.5 MCG/ACT AERO 2 puffs bid with rinse after 2011 BUDESONIDE-FORMOTEROL FUMARATE 36607049449 No Longer Active Perez Mora MD Active LYRICA 75 MG CAPS TAKE 1 CAPSULE BY MOUTH TWICE DAILY 2013 PREGABALIN 49516006678 No Longer Active Carlton Hu MD Active LYRICA 100 MG CAPS Take 1 tab po BID for fibromyalgia PREGABALIN 81351875663 Active Carlton Hu MD Active TOPAMAX 25 MG TABS 1 qHS x 1 week, then 1 BID x 1 week, then 1 qAM and 2 qHS x 1 week, then 2 BID (migraine prevention) TOPIRAMAT E 05645960254 No Longer Active Jerica FUENTES Active TOPAMAX 50 MG TABS take 1 tab po BID for migraines. 12/07/10 TOPIRAMATE 82484629135 No Longer Active Jerica FUENTES Ac tive TOPAMAX 100 MG TABS Take 1 tablet po bid TOPIRAMATE 4999 4058202 Active Carlton Hu MD Active TRIAMCINOLONE ACETONIDE 0.1 % CREA apply three times daily prn r beatrice TRIAMCINOLONE ACETONIDE 45385590059 No Longer Active Carlton Hu MD Active PAXIL 40 MG TAB take 1 tab po qday for depression PAROXETINE HCL 53210507487 Active Carlton Hu MD Active CYMBALTA 30 MG CPEP 1 cap by mouth daily DULOXE SNEHA HCL 07075438894 Active Carlton Hu MD Active CHERATUSSIN AC 100-10 MG/5ML SYRP 5ml po q6hr PRN Cough GUAIFENESIN-CODEINE 90341867833 No Longer Active Carlton Hu MD Active MEDROL (REYNA) 4 MG TABS 6 tabs on day 1, 5 tabs on d ay 2, 4 tabs on day 3, 3 tabs on day 4, 2 tabs on day 5, 1 tab on day 6 METHYLPREDNISOLONE 56072837832 No Longer Active Perez Mora MD Active AZITHROMYCIN 250 MG TABS 2 po qd x 1 day, then 1 po qd x 4 days AZITHROMYCIN 65049168940 No Longer Active Perez Mora MD Active PROPRANOLOL HCL 60 MG TABS 1 PO Q D PROPRANOL OL HCL 90758507621 No Longer Active Perez Mora MD Active CHERATUSSIN AC 100-10 MG/5ML SYRP take one tsp po Q 6hours prn c ough GUAIFENESIN-CODEINE 12661691827 No Longer Active Perez Means Active AUGMENTIN 875-125 MG TAB 1 tab by mouth twice daily with food 20 12/03/31 AMOXICILLIN-POT CLAVULANATE 48671469004 No Longer Active Chanel Mora MD Active CHERATUSSIN AC 100-10 MG/5ML SYRP 1 tsp by mouth every 4 hours as needed for cough GUAIFENESIN-CODEINE 73818840189 No Longer Activ lidia Restrepo MD Active ACETAMINOPHEN-CODEINE #3 300-30 MG TABS 1 PO Q 4-6 HRS PRN PAIN ACETAMINOPHEN-CODEINE 41644005346 No Longer Active Hugo Restrepo MD Active LEVAQUIN 500 MG TABS take one po QD LEVOFLOXACI N 30939161613 No Longer Active Griffin HERNANDEZ Active PREDNISONE 20 MG TAB Take 3 tabs daily for 3 days , 2 tabs daily for 3 days, 1 tab daily for 3 days, 1/2 tab daily for 3 days P REDNISONE 65468851087 No Longer Active Carlton Hu MD Active AVELOX 400 MG TABS 1 tab by mouth daily MOXIFLO XACIN HCL 31526698061 No Longer Active Carlton Hu MD Active CHERATUSSIN AC 100-10 MG/5ML SYRP 1 tsp by mouth every 4 hours as needed for cough GUAIFENESIN-CODEINE 09676098540 No Longer Activ e Hugo Restrepo MD Active AVELOX 400 MG TABS 1 tab by mouth daily MOXIFLO XACIN HCL 85677448657 No Longer Active Marcy De La Rosa MD PhD Active TERBINAFINE HCL 250 MG TABS 1 qDay TERBINAF INE HCL 54364668301 No Longer Active Marcy De La Rosa MD PhD Active CHERATUSSIN AC 100-10 MG/5ML SYRP 1 tsp by mouth every 4 hours as needed for cough GUAIFENESIN-CODEINE 96422835274 No Longer Activ e Marcy De La Rosa MD PhD Active AVELOX 400 MG TABS 1 tab by mouth daily MOXIFLO XACIN HCL 15931458997 No Longer Active Marcy De La Rosa MD PhD Active HYDROCODONE-ACETAMINOPHEN 5-325 MG TABS 1 po q 6hr PRN cough 201 05/09/16 HYDROCODONE-ACETAMINOPHEN 40339145643 No Longer Active Marcy De La Rosa MD PhD Active PREDNISONE 20 MG TAB 2 tabs daily for 3 days, 1 t ab daily for 3 days, 1/2 tab daily for 2 days PREDNISONE 58237903716 No Longer Active Carlton Hu MD Active CEFDINIR 300 MG CAPS by mouth twice a day CEFDI ODILIA 60928414244 No Longer Active Carlton Hu MD Active ZOCOR 40 MG TAB 1 tab by mouth daily SIMVASTATIN 87136865446 Active Carlton Hu MD Active HYDROCHLOROTHIAZIDE 25 MG TABS 1 TAB PO DAILY H YDROCHLOROTHIAZIDE 73386108840 Active Carlton Hu MD Active ACETAMINOPHEN-CODEINE #3 300-30 MG TABS 1 tablet po q 4-6hrs prn pain ACETAMINOPHEN-CODEINE 91465931782 No Longer Active Ridge Bess DO Active ZITHROMAX 250 MG TAB 2 po today, then 1 po q days 2-5 AZITHROMYCIN 65822506818 No Longer Active Carlton Hu MD Acti ve CHERATUSSIN AC 100-10 MG/5ML SYRP take 1 tsp po q4-6 hours prn c ough GUAIFENESIN-CODEINE 81976353827 No Longer Active Carlton Hu MD Active ACETAMINOPHEN-CODEINE #3 300-30 MG TABS 1 PO Q 4-6 HR PRN PAIN 2 ACETAMINOPHEN-CODEINE 19676570177 No Longer Active Carlton rich MD Active LORTAB 7.5-500 MG/15ML ELIX 7.5 ml po q 4 hour prn cough HYDROCODONE-ACETAMINOPHEN 08318227997 No Longer Active Carlton Hu MD Active PREDNISONE 20 MG TAB 1 po bid 3 days, then 1 po q day 3 days 201 05/03/07 PREDNISONE 56109297522 No Longer Active Carlton Hu MD Active ELMIRON 100 MG CAPS 2 tablets in the am and 1 tablet at hs PENTOSAN POLYSULFATE SODIUM 56269463804 Active Gracie Elyria Active CEFDINIR 300 MG CAPS by mouth twice a day CEFDI ODILIA 47936301638 No Longer Active Carlton Hu MD Active CEFDINIR 300 MG CAPS by mouth twice a day CEFDI ODILIA 10905777532 No Longer Active Carlton Hu MD Active CEFDINIR 300 MG CAPS by mouth twice a day CEFDI ODILIA 08139003253 No Longer Active Carlton Hu MD Active TESSALON PERLES 100 MG CAP 1 tablet by mouth 3 times daily a s needed for cough BENZONATATE 64048494994 No Longer Active Carlton bustamante MD Active CEFDINIR 300 MG CAPS by mouth twice a day CEFDI ODILIA 70862829568 No Longer Active Carlton Hu MD Active ZITHROMAX Z-REYNA 250 MG TABS 2 today, then 1 daily for 4 days 201 04/09/17 AZITHROMYCIN 54310392943 No Longer Active Hugo Restrepo MD Active PREMARIN 0.625 MG TABS TAKE 1 TAB BY MOUTH DAILY ESTROGENS CONJUGATED 19961669681 Active Carlton Hu MD Active TESSALON PERLES 100 MG CAP 1 tablet by mouth 3 times daily a s needed for cough TESSALON PERLES 100 MG CAP 885995 BENZONATATE I nactive PREDNISONE 20 MG TAB 1 po bid 3 days, then 1 po q day 3 days 201 05/03/07 PREDNISONE 20 MG TAB 311190 PREDNISONE Inactive LORTAB 7.5-500 MG/15ML ELIX 7.5 ml po q 4 hour prn cough LORTAB 7.5-500 MG/15ML ELIX HYDROCODONE-ACETAMINOPHEN Inacti ve ACETAMINOPHEN-CODEINE #3 300-30 MG TABS 1 PO Q 4-6 HR PRN PAIN 2 ACETAMINOPHEN-CODEINE #3 300-30 MG TABS 397024 ACETAMIN OPHEN-CODEINE Inactive CHERATUSSIN AC 100-10 MG/5ML SYRP take 1 tsp po q4-6 hours prn c ough CHERATUSSIN AC 100-10 MG/5ML SYRP 012285 GUAIFENESIN-CO DEINE Inactive ACETAMINOPHEN-CODEINE #3 300-30 MG TABS 1 tablet po q 4-6hrs prn pain ACETAMINOPHEN-CODEINE #3 300-30 MG TABS 737666 ACETAMIN OPHEN-CODEINE Inactive HYDROCODONE-ACETAMINOPHEN 5-325 MG TABS 1 po q 6hr PRN cough 201 05/09/16 HYDROCODONE-ACETAMINOPHEN 5-325 MG TABS 077764 HYDROCODONE-ACETAMINOPHEN Inactive AVELOX 400 MG TABS 1 tab by mouth daily A VELOX 400 MG TABS 592976 MOXIFLOXACIN HCL Inactive CHERATUSSIN AC 100-10 MG/5ML SYRP 1 tsp by mouth every 4 hours as needed for cough CHERATUSSIN AC 100-10 MG/5ML SYRP 311484 GUAIFENESIN-CODEINE Inactive TERBINAFINE HCL 250 MG TABS 1 qDay TERBINAFINE HCL 250 MG TABS 620974 TERBINAFINE HCL Inactive CHERATUSSIN AC 100-10 MG/5ML SYRP 1 tsp by mouth every 4 hours as needed for cough CHERATUSSIN AC 100-10 MG/5ML SYRP 305897 GUAIFENESIN-CODEINE Inactive ACETAMINOPHEN-CODEINE #3 300-30 MG TABS 1 PO Q 4-6 HRS PRN PAIN ACETAMINOPHEN-CODEINE #3 300-30 MG TABS 809113 ACETAMINOPHEN-CODEIN E Inactive CHERATUSSIN AC 100-10 MG/5ML SYRP 1 tsp by mouth every 4 hours as needed for cough CHERATUSSIN AC 100-10 MG/5ML SYRP 469812 GUAIFENESIN-CODEINE Inactive AUGMENTIN 875-125 MG TAB 1 tab by mouth twice daily with food 20 12/03/31 AUGMENTIN 875-125 MG TAB 610521 AMOXICILLIN-POT CLAVULA EFE Inactive CHERATUSSIN AC 100-10 MG/5ML SYRP take one tsp po Q 6hours prn c ough CHERATUSSIN AC 100-10 MG/5ML SYRP 991007 GUAIFENESIN-CO DEINE Inactive PROPRANOLOL HCL 60 MG TABS 1 PO Q D P ROPRANOLOL HCL 60 MG TABS 604194 PROPRANOLOL HCL Inactive TOPAMAX 50 MG TABS take 1 tab po BID for migraines. 12/07/10 TOPAMAX 50 MG TABS 712059 TOPIRAMATE Inactive TOPAMAX 25 MG TABS 1 qHS x 1 week, then 1 BID x 1 week, then 1 qAM and 2 qHS x 1 week, then 2 BID (migraine prevention) TOPAMAX 2 5 MG TABS 913894 TOPIRAMATE Inactive LYRICA 75 MG CAPS TAKE 1 CAPSULE BY MOUTH TWICE DAILY LYRICA 75 MG CAPS PREGABALIN Inactive SYMBICORT 160-4.5 MCG/ACT AERO 2 puffs bid with rinse after 2011 SYMBICORT 160-4.5 MCG/ACT AERO BUDESONIDE-FORMOT SÁNCHEZ FUMARATE Inactive PROMETHAZINE-CODEINE 6.25-10 MG/5ML SYRP 1 tsp by mouth ever y 8 hours prn cough PROMETHAZINE-CODEINE 6.25-10 MG/5ML SYRP 793410 PROMETHAZINE-CODEINE Inactive ZITHROMAX Z-REYNA 250 MG TABS 2 today, then 1 daily for 4 days 201 04/09/17 ZITHROMAX Z-REYNA 250 MG TABS 3245554 AZITHROMYCIN Inac tive CEFDINIR 300 MG CAPS by mouth twice a day CEFDINIR 300 MG CAPS 20020704 CEFDINIR Inactive CEFDINIR 300 MG CAPS by mouth twice a day CEFDINIR 300 MG CAPS 20020704 CEFDINIR Inactive CEFDINIR 300 MG CAPS by mouth twice a day CEFDINIR 300 MG CAPS 795876 CEFDINIR Inactive CEFDINIR 300 MG CAPS by mouth twice a day CEFDINIR 300 MG CAPS 20020704 CEFDINIR Inactive ZITHROMAX 250 MG TAB 2 po today, then 1 po q days 2-5 ZITHROMAX 250 MG TAB 2962234 AZITHROMYCIN Inactive CEFDINIR 300 MG CAPS by mouth twice a day CEFDINIR 300 MG CAPS 20020704 CEFDINIR Inactive PREDNISONE 20 MG TAB 2 tabs daily for 3 days, 1 t ab daily for 3 days, 1/2 tab daily for 2 days PREDNISONE 20 MG TAB 099897 PREDNISON E Inactive AVELOX 400 MG TABS 1 tab by mouth daily A VELOX 400 MG TABS 876487 MOXIFLOXACIN HCL Inactive AVELOX 400 MG TABS 1 tab by mouth daily A VELOX 400 MG TABS 592055 MOXIFLOXACIN HCL Inactive PREDNISONE 20 MG TAB Take 3 tabs daily for 3 days , 2 tabs daily for 3 days, 1 tab daily for 3 days, 1/2 tab daily for 3 days PREDNISONE 20 MG TAB 863464 PREDNISONE Inactive LEVAQUIN 500 MG TABS take one po QD LEVAQUIN 50 0 MG TABS 172207 LEVOFLOXACIN Inactive AZITHROMYCIN 250 MG TABS 2 po qd x 1 day, then 1 po qd x 4 days AZITHROMYCIN 250 MG TABS 8163194 AZITHROMYCIN Inactiv e MEDROL (REYNA) 4 MG TABS 6 tabs on day 1, 5 tabs on d ay 2, 4 tabs on day 3, 3 tabs on day 4, 2 tabs on day 5, 1 tab on day 6 MEDROL (REYNA) 4 MG TABS METHYLPREDNISOLONE Inactive CHERATUSSIN AC 100-10 MG/5ML SYRP 5ml po q6hr PRN Cough CHERATUSSIN AC 100-10 MG/5ML SYRP 099713 GUAIFENESIN-CODEINE Inacti ve TRIAMCINOLONE ACETONIDE 0.1 % CREA apply three times daily prn r beatrice TRIAMCINOLONE ACETONIDE 0.1 % CREA 8370236 TRIAMCINOLONE ACETONIDE Inactive AZITHROMYCIN 250 MG TABS 2 po qd x 1 day, then 1 po qd x 4 days AZITHROMYCIN 250 MG TABS 4891289 AZITHROMYCIN Inactiv e MEDROL (REYNA) 4 MG [...] days 20 13/03/08 AMOXICILLIN 500 MG CAP 343824 AMOXICILLIN Inactive AMOXICILLIN 500 MG CAP 1 tab by mouth 3 times daily x 10 days 20 14/04/28 AMOXICILLIN 500 MG CAP 127488 AMOXICILLIN Inactive Vital Signs Date Name Value [...] [phone] Encounters Code Encounter Date Provider Facility CPT-16837 Level 3 Est. Patient 10:03:07 CDT Perez Mora MD [facility]-61783 Level 3 Est. Patient 19:50:35 REFERRAL MANAGEMENT LIAISON Carlton rich MD [facility]-95393 Level 4 Est. Patient 18:05:01 REFERRAL MANAGEMENT LIAISON Carlton rich MD [facility]-09322 Level 3 Est. Patient 10:45:55 REFERRAL MANAGEMENT LIAISON Hugo Restrepo MD [facility]-78876 Level 3 Est. Patient 14:12:49 CDT Griffin HERNANDEZ [facility]-97889 Level 3 Est. Patient 17:37:24 CDT Carlton rich MD [facility]-00701 Level 3 Est. Patient 16:51:54 CDT Carlton rich MD [facility]-11563 Level 3 Est. Patient 12:18:11 CDT Hugo Restrepo MD [facility]-10319 Level 3 Est. Patient 11:30:25 CDT Marcy crisostomo MD PhD [facility]-46176 Level 3 Est. Patient 12:00:47 REFERRAL MANAGEMENT LIAISON Carlton rich MD [facility]-40492 Level 3 Est. Patient 16:31:06 REFERRAL MANAGEMENT LIAISON Carlton rich MD [facility]-13794 Level 3 Est. Patient 16:23:24 REFERRAL MANAGEMENT LIAISON Ridge tam DO [facility]-62613 Level 3 Est. Patient 12:34:12 CDT Carlton rich MD [facility] CPT-97895 Level 2 Est. Patient 15:43:33 CDT Robi armstrong MD [facility] CPT-82546 Level 4 Est. Patient 14:04:44 CDT Carlton rich MD [facility] CPT-30443 Level 3 Est. Patient 05:47:59 CDT Ridge tam DO [facility] CPT-35513 Level 3 Est. Patient 13:12:53 REFERRAL MANAGEMENT LIAISON Carlton rich MD [facility] CPT-69981 Level 3 Est. Patient 14:26:53 CDT Hugo Restrepo MD [facility] Procedures Code Procedure Name Date Entry Date Standard Desc ription CPT-14697 Fluzone Quadrivalent Intramuscular Suspe nsion 0.5 ML 14:31:55 CDT CPT-60682 Abx/Therapy Injection 13:28:47 REFERRAL MANAGEMENT LIAISON CPT-J2930 Solu Medrol 125 mg (Methyl Prednisolone Sodium Succinate) 12:00:47 REFERRAL MANAGEMENT LIAISON CPT-21649 Venipuncture Draw Fee 11:33:31 CDT CPT-04380 EKG Trac and Interp 11:21:09 CDT CPT-08617 Chest 2V Frontal and Lat 11:21:09 CDT 12/15 CPT-58753 Venipuncture Draw Fee 08:02:34 CDT CPT-56915 Chest 2V Frontal and Lat 05:47:59 CDT 06/05
--- OUTSIDE RECORDS SUMMARY | 2019-10-08 10:20 | XMS REPORT | Clinical Summary ---
Author Author Caitlin, Juliana Martinez Organization [facility] Address Unknown Phone Unavailable Allergies, Adverse [...] daily x 10 days 20 14/04/28 AMOXICILLIN [id number] No Longer Active Carlton Hu MD Active AMOXICILLIN 500 MG CAP 1 tab by mouth 3 times daily x 10 days 20 13/03/08 AMOXICILLIN 00164428696 No Longer Active Carlton Hu MD Active CHERATUSSIN AC 100-10 MG/5ML SYRP 1 tsp by mouth every 4 hours as needed for cough GUAIFENESIN-CODEINE 76151750597 Active Carlton banks MD Active CYCLOBENZAPRINE HCL 10 MG TABS 1 tablet by mouth BID prn had pain 2 CYCLOBENZAPRINE HCL 08090516246 Active Carlton Hu MD A ctive PROMETHAZINE-CODEINE 6.25-10 MG/5ML SYRP 1 tsp by mouth ever y 8 hours prn cough PROMETHAZINE-CODEINE 85153196572 No Longer Active Robert Hu MD Active MEDROL (REYNA) 4 MG TABS 6 pills x 1 day, then 5 pill s x 1 day then 4 pills x 1 day, then 3 pills x 1 day, then 2 pills x 1 day, then 1 pill x 1 day, then stop METHYLPREDNISOLONE 76118310014 No Longer Active Parris Mora MD Active AZITHROMYCIN 250 MG TABS 2 po qd x 1 day, then 1 po qd x 4 days AZITHROMYCIN 44552219853 No Longer Active Perez Mora MD Active SYMBICORT 160-4.5 MCG/ACT AERO 2 puffs bid with rinse after 2011 BUDESONIDE-FORMOTEROL FUMARATE 96807543825 No Longer Active Perez Mora MD Active LYRICA 75 MG CAPS TAKE 1 CAPSULE BY MOUTH TWICE DAILY 2013 PREGABALIN 11142367309 No Longer Active Carlton Hu MD Active LYRICA 100 MG CAPS Take 1 tab po BID for fibromyalgia PREGABALIN 79322588555 Active Carlton Hu MD Active TOPAMAX 25 MG TABS 1 qHS x 1 week, then 1 BID x 1 week, then 1 qAM and 2 qHS x 1 week, then 2 BID (migraine prevention) TOPIRAMAT E 87598636910 No Longer Active Jerica FUENTES Active TOPAMAX 50 MG TABS take 1 tab po BID for migraines. 12/07/10 TOPIRAMATE 18709201796 No Longer Active Jerica FUENTES Ac tive TOPAMAX 100 MG TABS Take 1 tablet po bid TOPIRAMATE 4999 7445633 Active Carlton Hu MD Active TRIAMCINOLONE ACETONIDE 0.1 % CREA apply three times daily prn r beatrice TRIAMCINOLONE ACETONIDE 69065600846 No Longer Active Carlton Hu MD Active PAXIL 40 MG TAB take 1 tab po qday for depression PAROXETINE HCL 57492695862 Active Carlton Hu MD Active CYMBALTA 30 MG CPEP 1 cap by mouth daily DULOXE SNEHA HCL 01243599159 Active Carlton Hu MD Active CHERATUSSIN AC 100-10 MG/5ML SYRP 5ml po q6hr PRN Cough GUAIFENESIN-CODEINE 33884006310 No Longer Active Carlton Hu MD Active MEDROL (REYNA) 4 MG TABS 6 tabs on day 1, 5 tabs on d ay 2, 4 tabs on day 3, 3 tabs on day 4, 2 tabs on day 5, 1 tab on day 6 METHYLPREDNISOLONE 38049911325 No Longer Active Perez Mora MD Active AZITHROMYCIN 250 MG TABS 2 po qd x 1 day, then 1 po qd x 4 days AZITHROMYCIN 00072743395 No Longer Active Perez Mora MD Active PROPRANOLOL HCL 60 MG TABS 1 PO Q D PROPRANOL OL HCL 04284264871 No Longer Active Perez Mora MD Active CHERATUSSIN AC 100-10 MG/5ML SYRP take one tsp po Q 6hours prn c ough GUAIFENESIN-CODEINE 06857700630 No Longer Active Perez Means Active AUGMENTIN 875-125 MG TAB 1 tab by mouth twice daily with food 20 12/03/31 AMOXICILLIN-POT CLAVULANATE 40879976685 No Longer Active Chanel Mora MD Active CHERATUSSIN AC 100-10 MG/5ML SYRP 1 tsp by mouth every 4 hours as needed for cough GUAIFENESIN-CODEINE 11661101391 No Longer Activ lidia Restrepo MD Active ACETAMINOPHEN-CODEINE #3 300-30 MG TABS 1 PO Q 4-6 HRS PRN PAIN ACETAMINOPHEN-CODEINE 48899403571 No Longer Active Hugo Restrepo MD Active LEVAQUIN 500 MG TABS take one po QD LEVOFLOXACI N 08901684473 No Longer Active Griffin HERNANDEZ Active PREDNISONE 20 MG TAB Take 3 tabs daily for 3 days , 2 tabs daily for 3 days, 1 tab daily for 3 days, 1/2 tab daily for 3 days P REDNISONE 84958036446 No Longer Active Carlton Hu MD Active AVELOX 400 MG TABS 1 tab by mouth daily MOXIFLO XACIN HCL 34036491103 No Longer Active Carlton Hu MD Active CHERATUSSIN AC 100-10 MG/5ML SYRP 1 tsp by mouth every 4 hours as needed for cough GUAIFENESIN-CODEINE 36411614334 No Longer Activ e Hugo Restrepo MD Active AVELOX 400 MG TABS 1 tab by mouth daily MOXIFLO XACIN HCL 59647357735 No Longer Active Marcy De La Rosa MD PhD Active TERBINAFINE HCL 250 MG TABS 1 qDay TERBINAF INE HCL 31929201777 No Longer Active Marcy De La Rosa MD PhD Active CHERATUSSIN AC 100-10 MG/5ML SYRP 1 tsp by mouth every 4 hours as needed for cough GUAIFENESIN-CODEINE 28406810698 No Longer Activ e Marcy De La Rosa MD PhD Active AVELOX 400 MG TABS 1 tab by mouth daily MOXIFLO XACIN HCL 62823963673 No Longer Active Marcy De La Rosa MD PhD Active HYDROCODONE-ACETAMINOPHEN 5-325 MG TABS 1 po q 6hr PRN cough 201 05/09/16 HYDROCODONE-ACETAMINOPHEN 00725785106 No Longer Active Marcy De La Rosa MD PhD Active PREDNISONE 20 MG TAB 2 tabs daily for 3 days, 1 t ab daily for 3 days, 1/2 tab daily for 2 days PREDNISONE 93077073391 No Longer Active Cralton Hu MD Active CEFDINIR 300 MG CAPS by mouth twice a day CEFDI ODILIA 86835600173 No Longer Active Carlton Hu MD Active ZOCOR 40 MG TAB 1 tab by mouth daily SIMVASTATIN 39203662669 Active Carlton Hu MD Active HYDROCHLOROTHIAZIDE 25 MG TABS 1 TAB PO DAILY H YDROCHLOROTHIAZIDE 79906350719 Active Carlton Hu MD Active ACETAMINOPHEN-CODEINE #3 300-30 MG TABS 1 tablet po q 4-6hrs prn pain ACETAMINOPHEN-CODEINE 58949965036 No Longer Active Ridge Bess DO Active ZITHROMAX 250 MG TAB 2 po today, then 1 po q days 2-5 AZITHROMYCIN 00268718561 No Longer Active Carlton Hu MD Acti ve CHERATUSSIN AC 100-10 MG/5ML SYRP take 1 tsp po q4-6 hours prn c ough GUAIFENESIN-CODEINE 38622827133 No Longer Active Carlton Hu MD Active ACETAMINOPHEN-CODEINE #3 300-30 MG TABS 1 PO Q 4-6 HR PRN PAIN 2 ACETAMINOPHEN-CODEINE 92495466784 No Longer Active Carlton rich MD Active LORTAB 7.5-500 MG/15ML ELIX 7.5 ml po q 4 hour prn cough HYDROCODONE-ACETAMINOPHEN 05434646354 No Longer Active Carlton Hu MD Active PREDNISONE 20 MG TAB 1 po bid 3 days, then 1 po q day 3 days 201 05/03/07 PREDNISONE 22108891417 No Longer Active Carlton Hu MD Active ELMIRON 100 MG CAPS 2 tablets in the am and 1 tablet at hs PENTOSAN POLYSULFATE SODIUM 22881730698 Active Gracie [place] Active CEFDINIR 300 MG CAPS by mouth twice a day CEFDI ODILIA 32829597399 No Longer Active Carlton Hu MD Active CEFDINIR 300 MG CAPS by mouth twice a day CEFDI ODILIA 77245848645 No Longer Active Carlton Hu MD Active CEFDINIR 300 MG CAPS by mouth twice a day CEFDI ODILIA 21026156958 No Longer Active Carlton Hu MD Active TESSALON PERLES 100 MG CAP 1 tablet by mouth 3 times daily a s needed for cough BENZONATATE 22302733463 No Longer Active Carlton bustamante MD Active CEFDINIR 300 MG CAPS by mouth twice a day CEFDI ODILIA 18195394148 No Longer Active Carlton Hu MD Active ZITHROMAX Z-REYNA 250 MG TABS 2 today, then 1 daily for 4 days 201 04/09/17 AZITHROMYCIN 80061804022 No Longer Active Hugo Restrepo MD Active PREMARIN 0.625 MG TABS TAKE 1 TAB BY MOUTH DAILY ESTROGENS CONJUGATED 97232631081 Active Carlton Hu MD Active TESSALON PERLES 100 MG CAP 1 tablet by mouth 3 times daily a s needed for cough TESSALON PERLES 100 MG CAP 619717 BENZONATATE I nactive PREDNISONE 20 MG TAB 1 po bid 3 days, then 1 po q day 3 days 201 05/03/07 PREDNISONE 20 MG TAB 628447 PREDNISONE Inactive LORTAB 7.5-500 MG/15ML ELIX 7.5 ml po q 4 hour prn cough LORTAB 7.5-500 MG/15ML ELIX HYDROCODONE-ACETAMINOPHEN Inacti ve ACETAMINOPHEN-CODEINE #3 300-30 MG TABS 1 PO Q 4-6 HR PRN PAIN 2 ACETAMINOPHEN-CODEINE #3 300-30 MG TABS 708850 ACETAMIN OPHEN-CODEINE Inactive CHERATUSSIN AC 100-10 MG/5ML SYRP take 1 tsp po q4-6 hours prn c ough CHERATUSSIN AC 100-10 MG/5ML SYRP 403068 GUAIFENESIN-CO DEINE Inactive ACETAMINOPHEN-CODEINE #3 300-30 MG TABS 1 tablet po q 4-6hrs prn pain ACETAMINOPHEN-CODEINE #3 300-30 MG TABS 858745 ACETAMIN OPHEN-CODEINE Inactive HYDROCODONE-ACETAMINOPHEN 5-325 MG TABS 1 po q 6hr PRN cough 201 05/09/16 HYDROCODONE-ACETAMINOPHEN 5-325 MG TABS 647127 HYDROCODONE-ACETAMINOPHEN Inactive AVELOX 400 MG TABS 1 tab by mouth daily A VELOX 400 MG TABS 394345 MOXIFLOXACIN HCL Inactive CHERATUSSIN AC 100-10 MG/5ML SYRP 1 tsp by mouth every 4 hours as needed for cough CHERATUSSIN AC 100-10 MG/5ML SYRP 796358 GUAIFENESIN-CODEINE Inactive TERBINAFINE HCL 250 MG TABS 1 qDay TERBINAFINE HCL 250 MG TABS 388292 TERBINAFINE HCL Inactive CHERATUSSIN AC 100-10 MG/5ML SYRP 1 tsp by mouth every 4 hours as needed for cough CHERATUSSIN AC 100-10 MG/5ML SYRP 150321 GUAIFENESIN-CODEINE Inactive ACETAMINOPHEN-CODEINE #3 300-30 MG TABS 1 PO Q 4-6 HRS PRN PAIN ACETAMINOPHEN-CODEINE #3 300-30 MG TABS 733949 ACETAMINOPHEN-CODEIN E Inactive CHERATUSSIN AC 100-10 MG/5ML SYRP 1 tsp by mouth every 4 hours as needed for cough CHERATUSSIN AC 100-10 MG/5ML SYRP 767998 GUAIFENESIN-CODEINE Inactive AUGMENTIN 875-125 MG TAB 1 tab by mouth twice daily with food 20 12/03/31 AUGMENTIN 875-125 MG TAB 386686 AMOXICILLIN-POT CLAVULA EFE Inactive CHERATUSSIN AC 100-10 MG/5ML SYRP take one tsp po Q 6hours prn c ough CHERATUSSIN AC 100-10 MG/5ML SYRP 573983 GUAIFENESIN-CO DEINE Inactive PROPRANOLOL HCL 60 MG TABS 1 PO Q D P ROPRANOLOL HCL 60 MG TABS 679987 PROPRANOLOL HCL Inactive TOPAMAX 50 MG TABS take 1 tab po BID for migraines. 12/07/10 TOPAMAX 50 MG TABS 860869 TOPIRAMATE Inactive TOPAMAX 25 MG TABS 1 qHS x 1 week, then 1 BID x 1 week, then 1 qAM and 2 qHS x 1 week, then 2 BID (migraine prevention) TOPAMAX 2 5 MG TABS 445369 TOPIRAMATE Inactive LYRICA 75 MG CAPS TAKE 1 CAPSULE BY MOUTH TWICE DAILY LYRICA 75 MG CAPS PREGABALIN Inactive SYMBICORT 160-4.5 MCG/ACT AERO 2 puffs bid with rinse after 2011 SYMBICORT 160-4.5 MCG/ACT AERO BUDESONIDE-FORMOT SÁNCHEZ FUMARATE Inactive PROMETHAZINE-CODEINE 6.25-10 MG/5ML SYRP 1 tsp by mouth ever y 8 hours prn cough PROMETHAZINE-CODEINE 6.25-10 MG/5ML SYRP 245922 PROMETHAZINE-CODEINE Inactive ZITHROMAX Z-REYNA 250 MG TABS 2 today, then 1 daily for 4 days 201 04/09/17 ZITHROMAX Z-REYNA 250 MG TABS 2399556 AZITHROMYCIN Inac tive CEFDINIR 300 MG CAPS by mouth twice a day CEFDINIR 300 MG CAPS 20020704 CEFDINIR Inactive CEFDINIR 300 MG CAPS by mouth twice a day CEFDINIR 300 MG CAPS 20020704 CEFDINIR Inactive CEFDINIR 300 MG CAPS by mouth twice a day CEFDINIR 300 MG CAPS 718313 CEFDINIR Inactive CEFDINIR 300 MG CAPS by mouth twice a day CEFDINIR 300 MG CAPS 20020704 CEFDINIR Inactive ZITHROMAX 250 MG TAB 2 po today, then 1 po q days 2-5 ZITHROMAX 250 MG TAB 5783792 AZITHROMYCIN Inactive CEFDINIR 300 MG CAPS by mouth twice a day CEFDINIR 300 MG CAPS 20020704 CEFDINIR Inactive PREDNISONE 20 MG TAB 2 tabs daily for 3 days, 1 t ab daily for 3 days, 1/2 tab daily for 2 days PREDNISONE 20 MG TAB 681348 PREDNISON E Inactive AVELOX 400 MG TABS 1 tab by mouth daily A VELOX 400 MG TABS 178825 MOXIFLOXACIN HCL Inactive AVELOX 400 MG TABS 1 tab by mouth daily A VELOX 400 MG TABS 515766 MOXIFLOXACIN HCL Inactive PREDNISONE 20 MG TAB Take 3 tabs daily for 3 days , 2 tabs daily for 3 days, 1 tab daily for 3 days, 1/2 tab daily for 3 days PREDNISONE 20 MG TAB 954242 PREDNISONE Inactive LEVAQUIN 500 MG TABS take one po QD LEVAQUIN 50 0 MG TABS 014538 LEVOFLOXACIN Inactive AZITHROMYCIN 250 MG TABS 2 po qd x 1 day, then 1 po qd x 4 days AZITHROMYCIN 250 MG TABS 5881403 AZITHROMYCIN Inactiv e MEDROL (REYNA) 4 MG TABS 6 tabs on day 1, 5 tabs on d ay 2, 4 tabs on day 3, 3 tabs on day 4, 2 tabs on day 5, 1 tab on day 6 MEDROL (REYNA) 4 MG TABS METHYLPREDNISOLONE Inactive CHERATUSSIN AC 100-10 MG/5ML SYRP 5ml po q6hr PRN Cough CHERATUSSIN AC 100-10 MG/5ML SYRP 195367 GUAIFENESIN-CODEINE Inacti ve TRIAMCINOLONE ACETONIDE 0.1 % CREA apply three times daily prn r beatrice TRIAMCINOLONE ACETONIDE 0.1 % CREA 3191270 TRIAMCINOLONE ACETONIDE Inactive AZITHROMYCIN 250 MG TABS 2 po qd x 1 day, then 1 po qd x 4 days AZITHROMYCIN 250 MG TABS 6863551 AZITHROMYCIN Inactiv e MEDROL (REYNA) 4 MG [...] days 20 13/03/08 AMOXICILLIN 500 MG CAP 101843 AMOXICILLIN Inactive AMOXICILLIN 500 MG CAP 1 tab by mouth 3 times daily x 10 days 20 14/04/28 AMOXICILLIN 500 MG CAP 187343 AMOXICILLIN Inactive Vital Signs Date Name Value [...] 11 .6-14.8 platelet count 371 10^3/MM^3 10*3/mm3 481-597 8045/10/23 mean corpuscular volume, RBC 90 fL 80-97 hematocrit, blood 43.9 % 36.0-46.0 hemoglobin, blood 15.0 g/dL 12.0-16.0 erythrocyte (RBC) count 4.89 10^6/MM^3 10*6/mm3 4.04-5.4 8 leukocyte count, blood 4.1 10^3/MM^3 10*3/mm3 4.6-10.2 Encounters Code Encounter Date Provider Facility CPT-43959 Level 3 Est. Patient 10:03:07 CDT Perez Mora MD [facility]-65472 Level 3 Est. Patient 19:50:35 CYBER INSTRUCTOR Carlton rich MD [facility]-13931 Level 4 Est. Patient 18:05:01 CYBER INSTRUCTOR Carlton rich MD [facility]-26598 Level 3 Est. Patient 10:45:55 CYBER INSTRUCTOR Hugo Restrepo MD [facility]-39420 Level 3 Est. Patient 14:12:49 CDT Griffin HERNANDEZ [facility]-00075 Level 3 Est. Patient 17:37:24 CDT Carlton rich MD [facility]-24372 Level 3 Est. Patient 16:51:54 CDT Carlton rich MD [facility]-51751 Level 3 Est. Patient 12:18:11 CDT Hugo Restrepo MD [facility]-31701 Level 3 Est. Patient 11:30:25 CDT Marcy crisostomo MD PhD [facility]-23215 Level 3 Est. Patient 12:00:47 CYBER INSTRUCTOR Carlton rich MD [facility]-97469 Level 3 Est. Patient 16:31:06 CYBER INSTRUCTOR Carlton rich MD [facility]-63859 Level 3 Est. Patient 16:23:24 CYBER INSTRUCTOR Ridge tam DO [facility]-52692 Level 3 Est. Patient 12:34:12 CDT Carlton rich MD [facility] CPT-80635 Level 2 Est. Patient 15:43:33 CDT Roib armstrong MD [facility] CPT-58027 Level 4 Est. Patient 14:04:44 CDT Carlton rich MD [facility] CPT-67249 Level 3 Est. Patient 05:47:59 CDT Ridge tam DO [facility] CPT-47242 Level 3 Est. Patient 13:12:53 CYBER INSTRUCTOR Carlton rich MD [facility] CPT-38470 Level 3 Est. Patient 14:26:53 CDT Hugo Restrepo MD [facility] Procedures Code Procedure Name Date Entry Date Standard Desc ription CPT-09215 Fluzone Quadrivalent Intramuscular Suspe nsion 0.5 ML 14:31:55 CDT CPT-64709 Abx/Therapy Injection 13:28:47 CYBER INSTRUCTOR CPT-J2930 Solu Medrol 125 mg (Methyl Prednisolone Sodium Succinate) 12:00:47 CYBER INSTRUCTOR CPT-26786 Venipuncture Draw Fee 11:33:31 CDT CPT-71125 EKG Trac and Interp 11:21:09 CDT CPT-14214 Chest 2V Frontal and Lat 11:21:09 CDT 12/15 CPT-63301 Venipuncture Draw Fee 08:02:34 CDT CPT-69843 Chest 2V Frontal and Lat 05:47:59 CDT 06/05
--- OUTSIDE RECORDS SUMMARY | 2019-10-08 10:20 | XMS REPORT | Clinical Summary ---
Author Author Caitlin, Juliana Martinez Organization [facility] Address Unknown Phone Unavailable Allergies, [...] daily x 10 days 20 14/04/28 AMOXICILLIN [id number] No Longer Active Carlton Hu MD Active AMOXICILLIN 500 MG CAP 1 tab by mouth 3 times daily x 10 days 20 13/03/08 AMOXICILLIN 83192633924 No Longer Active Carlton Hu MD Active CHERATUSSIN AC 100-10 MG/5ML SYRP 1 tsp by mouth every 4 hours as needed for cough GUAIFENESIN-CODEINE 03223295178 Active Carlton banks MD Active CYCLOBENZAPRINE HCL 10 MG TABS 1 tablet by mouth BID prn had pain 2 CYCLOBENZAPRINE HCL 80861613948 Active Carlton Hu MD A ctive PROMETHAZINE-CODEINE 6.25-10 MG/5ML SYRP 1 tsp by mouth ever y 8 hours prn cough PROMETHAZINE-CODEINE 22711153147 No Longer Active Robert Hu MD Active MEDROL (REYNA) 4 MG TABS 6 pills x 1 day, then 5 pill s x 1 day then 4 pills x 1 day, then 3 pills x 1 day, then 2 pills x 1 day, then 1 pill x 1 day, then stop METHYLPREDNISOLONE 65713245483 No Longer Active Parris Mora MD Active AZITHROMYCIN 250 MG TABS 2 po qd x 1 day, then 1 po qd x 4 days AZITHROMYCIN 76831850401 No Longer Active Perez Mora MD Active SYMBICORT 160-4.5 MCG/ACT AERO 2 puffs bid with rinse after 2011 BUDESONIDE-FORMOTEROL FUMARATE 99321334808 No Longer Active Perez Mora MD Active LYRICA 75 MG CAPS TAKE 1 CAPSULE BY MOUTH TWICE DAILY 2013 PREGABALIN 23519489355 No Longer Active Carlton Hu MD Active LYRICA 100 MG CAPS Take 1 tab po BID for fibromyalgia PREGABALIN 69217541083 Active Carlton Hu MD Active TOPAMAX 25 MG TABS 1 qHS x 1 week, then 1 BID x 1 week, then 1 qAM and 2 qHS x 1 week, then 2 BID (migraine prevention) TOPIRAMAT E 28198774012 No Longer Active Jerica FUENTES Active TOPAMAX 50 MG TABS take 1 tab po BID for migraines. 12/07/10 TOPIRAMATE 88378837673 No Longer Active Jerica FUENTES Ac tive TOPAMAX 100 MG TABS Take 1 tablet po bid TOPIRAMATE 4999 3140207 Active Carlton Hu MD Active TRIAMCINOLONE ACETONIDE 0.1 % CREA apply three times daily prn r beatrice TRIAMCINOLONE ACETONIDE 81027105574 No Longer Active Carlton Hu MD Active PAXIL 40 MG TAB take 1 tab po qday for depression PAROXETINE HCL 37253320615 Active Carlton Hu MD Active CYMBALTA 30 MG CPEP 1 cap by mouth daily DULOXE SNEHA HCL 88624863450 Active Carlton Hu MD Active CHERATUSSIN AC 100-10 MG/5ML SYRP 5ml po q6hr PRN Cough GUAIFENESIN-CODEINE 93738524628 No Longer Active Carlton Hu MD Active MEDROL (REYNA) 4 MG TABS 6 tabs on day 1, 5 tabs on d ay 2, 4 tabs on day 3, 3 tabs on day 4, 2 tabs on day 5, 1 tab on day 6 METHYLPREDNISOLONE 44603782926 No Longer Active Perez Mora MD Active AZITHROMYCIN 250 MG TABS 2 po qd x 1 day, then 1 po qd x 4 days AZITHROMYCIN 80280925864 No Longer Active Perez Mora MD Active PROPRANOLOL HCL 60 MG TABS 1 PO Q D PROPRANOL OL HCL 92134193018 No Longer Active Perez Mora MD Active CHERATUSSIN AC 100-10 MG/5ML SYRP take one tsp po Q 6hours prn c ough GUAIFENESIN-CODEINE 76225096477 No Longer Active Perez Means Active AUGMENTIN 875-125 MG TAB 1 tab by mouth twice daily with food 20 12/03/31 AMOXICILLIN-POT CLAVULANATE 85120329661 No Longer Active Chanel Mora MD Active CHERATUSSIN AC 100-10 MG/5ML SYRP 1 tsp by mouth every 4 hours as needed for cough GUAIFENESIN-CODEINE 18097839300 No Longer Activ lidia Restrepo MD Active ACETAMINOPHEN-CODEINE #3 300-30 MG TABS 1 PO Q 4-6 HRS PRN PAIN ACETAMINOPHEN-CODEINE 78047528731 No Longer Active Hugo Restrepo MD Active LEVAQUIN 500 MG TABS take one po QD LEVOFLOXACI N 31187101906 No Longer Active Griffin HERNANDEZ Active PREDNISONE 20 MG TAB Take 3 tabs daily for 3 days , 2 tabs daily for 3 days, 1 tab daily for 3 days, 1/2 tab daily for 3 days P REDNISONE 78154482705 No Longer Active Carlton Hu MD Active AVELOX 400 MG TABS 1 tab by mouth daily MOXIFLO XACIN HCL 84117689827 No Longer Active Carlton Hu MD Active CHERATUSSIN AC 100-10 MG/5ML SYRP 1 tsp by mouth every 4 hours as needed for cough GUAIFENESIN-CODEINE 71275403633 No Longer Activ e Hugo Restrepo MD Active AVELOX 400 MG TABS 1 tab by mouth daily MOXIFLO XACIN HCL 86385490037 No Longer Active Marcy De La Rosa MD PhD Active TERBINAFINE HCL 250 MG TABS 1 qDay TERBINAF INE HCL 63999334993 No Longer Active Marcy De La Rosa MD PhD Active CHERATUSSIN AC 100-10 MG/5ML SYRP 1 tsp by mouth every 4 hours as needed for cough GUAIFENESIN-CODEINE 22967060629 No Longer Activ e Marcy De La Rosa MD PhD Active AVELOX 400 MG TABS 1 tab by mouth daily MOXIFLO XACIN HCL 31394133045 No Longer Active Marcy De La Rosa MD PhD Active HYDROCODONE-ACETAMINOPHEN 5-325 MG TABS 1 po q 6hr PRN cough 201 05/09/16 HYDROCODONE-ACETAMINOPHEN 41851200701 No Longer Active Marcy De La Rosa MD PhD Active PREDNISONE 20 MG TAB 2 tabs daily for 3 days, 1 t ab daily for 3 days, 1/2 tab daily for 2 days PREDNISONE 51651031403 No Longer Active Carlton Hu MD Active CEFDINIR 300 MG CAPS by mouth twice a day CEFDI ODILIA 80645981373 No Longer Active Carlton Hu MD Active ZOCOR 40 MG TAB 1 tab by mouth daily SIMVASTATIN 16343126376 Active Carlton Hu MD Active HYDROCHLOROTHIAZIDE 25 MG TABS 1 TAB PO DAILY H YDROCHLOROTHIAZIDE 53521486716 Active Carlton Hu MD Active ACETAMINOPHEN-CODEINE #3 300-30 MG TABS 1 tablet po q 4-6hrs prn pain ACETAMINOPHEN-CODEINE 88771328527 No Longer Active Ridge Bess DO Active ZITHROMAX 250 MG TAB 2 po today, then 1 po q days 2-5 AZITHROMYCIN 00204695724 No Longer Active Carlton Hu MD Acti ve CHERATUSSIN AC 100-10 MG/5ML SYRP take 1 tsp po q4-6 hours prn c ough GUAIFENESIN-CODEINE 16449060401 No Longer Active Carlton Hu MD Active ACETAMINOPHEN-CODEINE #3 300-30 MG TABS 1 PO Q 4-6 HR PRN PAIN 2 ACETAMINOPHEN-CODEINE 36252181334 No Longer Active Carlton rich MD Active LORTAB 7.5-500 MG/15ML ELIX 7.5 ml po q 4 hour prn cough HYDROCODONE-ACETAMINOPHEN 30802892342 No Longer Active Carlton Hu MD Active PREDNISONE 20 MG TAB 1 po bid 3 days, then 1 po q day 3 days 201 05/03/07 PREDNISONE 73891876865 No Longer Active Carlton Hu MD Active ELMIRON 100 MG CAPS 2 tablets in the am and 1 tablet at hs PENTOSAN POLYSULFATE SODIUM 50923264249 Active Gracie Freedom Active CEFDINIR 300 MG CAPS by mouth twice a day CEFDI ODILIA 14247119983 No Longer Active Carlton Hu MD Active CEFDINIR 300 MG CAPS by mouth twice a day CEFDI ODILIA 54818541228 No Longer Active Carlton Hu MD Active CEFDINIR 300 MG CAPS by mouth twice a day CEFDI ODILIA 77493405968 No Longer Active Carlton Hu MD Active TESSALON PERLES 100 MG CAP 1 tablet by mouth 3 times daily a s needed for cough BENZONATATE 62707728845 No Longer Active Carlton bustamante MD Active CEFDINIR 300 MG CAPS by mouth twice a day CEFDI ODILIA 81734442974 No Longer Active Carlton Hu MD Active ZITHROMAX Z-REYNA 250 MG TABS 2 today, then 1 daily for 4 days 201 04/09/17 AZITHROMYCIN 40044781953 No Longer Active Hugo Restrepo MD Active PREMARIN 0.625 MG TABS TAKE 1 TAB BY MOUTH DAILY ESTROGENS CONJUGATED 08058180473 Active Carlton Hu MD Active TESSALON PERLES 100 MG CAP 1 tablet by mouth 3 times daily a s needed for cough TESSALON PERLES 100 MG CAP 082890 BENZONATATE I nactive PREDNISONE 20 MG TAB 1 po bid 3 days, then 1 po q day 3 days 201 05/03/07 PREDNISONE 20 MG TAB 748047 PREDNISONE Inactive LORTAB 7.5-500 MG/15ML ELIX 7.5 ml po q 4 hour prn cough LORTAB 7.5-500 MG/15ML ELIX HYDROCODONE-ACETAMINOPHEN Inacti ve ACETAMINOPHEN-CODEINE #3 300-30 MG TABS 1 PO Q 4-6 HR PRN PAIN 2 ACETAMINOPHEN-CODEINE #3 300-30 MG TABS 485362 ACETAMIN OPHEN-CODEINE Inactive CHERATUSSIN AC 100-10 MG/5ML SYRP take 1 tsp po q4-6 hours prn c ough CHERATUSSIN AC 100-10 MG/5ML SYRP 933288 GUAIFENESIN-CO DEINE Inactive ACETAMINOPHEN-CODEINE #3 300-30 MG TABS 1 tablet po q 4-6hrs prn pain ACETAMINOPHEN-CODEINE #3 300-30 MG TABS 766208 ACETAMIN OPHEN-CODEINE Inactive HYDROCODONE-ACETAMINOPHEN 5-325 MG TABS 1 po q 6hr PRN cough 201 05/09/16 HYDROCODONE-ACETAMINOPHEN 5-325 MG TABS 047071 HYDROCODONE-ACETAMINOPHEN Inactive AVELOX 400 MG TABS 1 tab by mouth daily A VELOX 400 MG TABS 686958 MOXIFLOXACIN HCL Inactive CHERATUSSIN AC 100-10 MG/5ML SYRP 1 tsp by mouth every 4 hours as needed for cough CHERATUSSIN AC 100-10 MG/5ML SYRP 367063 GUAIFENESIN-CODEINE Inactive TERBINAFINE HCL 250 MG TABS 1 qDay TERBINAFINE HCL 250 MG TABS 032893 TERBINAFINE HCL Inactive CHERATUSSIN AC 100-10 MG/5ML SYRP 1 tsp by mouth every 4 hours as needed for cough CHERATUSSIN AC 100-10 MG/5ML SYRP 689348 GUAIFENESIN-CODEINE Inactive ACETAMINOPHEN-CODEINE #3 300-30 MG TABS 1 PO Q 4-6 HRS PRN PAIN ACETAMINOPHEN-CODEINE #3 300-30 MG TABS 649439 ACETAMINOPHEN-CODEIN E Inactive CHERATUSSIN AC 100-10 MG/5ML SYRP 1 tsp by mouth every 4 hours as needed for cough CHERATUSSIN AC 100-10 MG/5ML SYRP 739184 GUAIFENESIN-CODEINE Inactive AUGMENTIN 875-125 MG TAB 1 tab by mouth twice daily with food 20 12/03/31 AUGMENTIN 875-125 MG TAB 396493 AMOXICILLIN-POT CLAVULA EFE Inactive CHERATUSSIN AC 100-10 MG/5ML SYRP take one tsp po Q 6hours prn c ough CHERATUSSIN AC 100-10 MG/5ML SYRP 248944 GUAIFENESIN-CO DEINE Inactive PROPRANOLOL HCL 60 MG TABS 1 PO Q D P ROPRANOLOL HCL 60 MG TABS 546680 PROPRANOLOL HCL Inactive TOPAMAX 50 MG TABS take 1 tab po BID for migraines. 12/07/10 TOPAMAX 50 MG TABS 323888 TOPIRAMATE Inactive TOPAMAX 25 MG TABS 1 qHS x 1 week, then 1 BID x 1 week, then 1 qAM and 2 qHS x 1 week, then 2 BID (migraine prevention) TOPAMAX 2 5 MG TABS 614339 TOPIRAMATE Inactive LYRICA 75 MG CAPS TAKE 1 CAPSULE BY MOUTH TWICE DAILY LYRICA 75 MG CAPS PREGABALIN Inactive SYMBICORT 160-4.5 MCG/ACT AERO 2 puffs bid with rinse after 2011 SYMBICORT 160-4.5 MCG/ACT AERO BUDESONIDE-FORMOT SÁNCHEZ FUMARATE Inactive PROMETHAZINE-CODEINE 6.25-10 MG/5ML SYRP 1 tsp by mouth ever y 8 hours prn cough PROMETHAZINE-CODEINE 6.25-10 MG/5ML SYRP 413352 PROMETHAZINE-CODEINE Inactive ZITHROMAX Z-REYNA 250 MG TABS 2 today, then 1 daily for 4 days 201 04/09/17 ZITHROMAX Z-REYNA 250 MG TABS 2671221 AZITHROMYCIN Inac tive CEFDINIR 300 MG CAPS by mouth twice a day CEFDINIR 300 MG CAPS 20020704 CEFDINIR Inactive CEFDINIR 300 MG CAPS by mouth twice a day CEFDINIR 300 MG CAPS 20020704 CEFDINIR Inactive CEFDINIR 300 MG CAPS by mouth twice a day CEFDINIR 300 MG CAPS 555735 CEFDINIR Inactive CEFDINIR 300 MG CAPS by mouth twice a day CEFDINIR 300 MG CAPS 20020704 CEFDINIR Inactive ZITHROMAX 250 MG TAB 2 po today, then 1 po q days 2-5 ZITHROMAX 250 MG TAB 7164474 AZITHROMYCIN Inactive CEFDINIR 300 MG CAPS by mouth twice a day CEFDINIR 300 MG CAPS 20020704 CEFDINIR Inactive PREDNISONE 20 MG TAB 2 tabs daily for 3 days, 1 t ab daily for 3 days, 1/2 tab daily for 2 days PREDNISONE 20 MG TAB 191501 PREDNISON E Inactive AVELOX 400 MG TABS 1 tab by mouth daily A VELOX 400 MG TABS 616133 MOXIFLOXACIN HCL Inactive AVELOX 400 MG TABS 1 tab by mouth daily A VELOX 400 MG TABS 880587 MOXIFLOXACIN HCL Inactive PREDNISONE 20 MG TAB Take 3 tabs daily for 3 days , 2 tabs daily for 3 days, 1 tab daily for 3 days, 1/2 tab daily for 3 days PREDNISONE 20 MG TAB 730848 PREDNISONE Inactive LEVAQUIN 500 MG TABS take one po QD LEVAQUIN 50 0 MG TABS 517584 LEVOFLOXACIN Inactive AZITHROMYCIN 250 MG TABS 2 po qd x 1 day, then 1 po qd x 4 days AZITHROMYCIN 250 MG TABS 0278717 AZITHROMYCIN Inactiv e MEDROL (REYNA) 4 MG TABS 6 tabs on day 1, 5 tabs on d ay 2, 4 tabs on day 3, 3 tabs on day 4, 2 tabs on day 5, 1 tab on day 6 MEDROL (REYNA) 4 MG TABS METHYLPREDNISOLONE Inactive CHERATUSSIN AC 100-10 MG/5ML SYRP 5ml po q6hr PRN Cough CHERATUSSIN AC 100-10 MG/5ML SYRP 205372 GUAIFENESIN-CODEINE Inacti ve TRIAMCINOLONE ACETONIDE 0.1 % CREA apply three times daily prn r beatrice TRIAMCINOLONE ACETONIDE 0.1 % CREA 9927668 TRIAMCINOLONE ACETONIDE Inactive AZITHROMYCIN 250 MG TABS 2 po qd x 1 day, then 1 po qd x 4 days AZITHROMYCIN 250 MG TABS 6559574 AZITHROMYCIN Inactiv e MEDROL (REYNA) 4 MG [...] days 20 13/03/08 AMOXICILLIN 500 MG CAP 516721 AMOXICILLIN Inactive AMOXICILLIN 500 MG CAP 1 tab by mouth 3 times daily x 10 days 20 14/04/28 AMOXICILLIN 500 MG CAP 344890 AMOXICILLIN Inactive Vital Signs Date Name Value [...] 11 .6-14.8 platelet count 371 10^3/MM^3 10*3/mm3 845-093 1126/10/23 mean corpuscular volume, RBC 90 fL 80-97 hematocrit, blood 43.9 % 36.0-46.0 hemoglobin, blood 15.0 g/dL 12.0-16.0 erythrocyte (RBC) count 4.89 10^6/MM^3 10*6/mm3 4.04-5.4 8 leukocyte count, blood 4.1 10^3/MM^3 10*3/mm3 4.6-10.2 Encounters Code Encounter Date Provider Facility CPT-29503 Level 3 Est. Patient 10:03:07 CDT Perez Mora MD [facility]-33957 Level 3 Est. Patient 19:50:35 COMPLAINT SUPERVISOR Carlton rich MD [facility]-11909 Level 4 Est. Patient 18:05:01 COMPLAINT SUPERVISOR Carlton rich MD [facility]-53949 Level 3 Est. Patient 10:45:55 COMPLAINT SUPERVISOR Hugo Restrepo MD [facility]-76223 Level 3 Est. Patient 14:12:49 CDT Griffin HERNANDEZ [facility]-70825 Level 3 Est. Patient 17:37:24 CDT Carlton rich MD [facility]-46001 Level 3 Est. Patient 16:51:54 CDT Carlton rich MD [facility]-88980 Level 3 Est. Patient 12:18:11 CDT Hugo Restrepo MD [facility]-68891 Level 3 Est. Patient 11:30:25 CDT Marcy crisostomo MD PhD [facility]-78712 Level 3 Est. Patient 12:00:47 COMPLAINT SUPERVISOR Carlton rich MD [facility]-14207 Level 3 Est. Patient 16:31:06 COMPLAINT SUPERVISOR Carlton rich MD [facility]-42409 Level 3 Est. Patient 16:23:24 COMPLAINT SUPERVISOR Ridge tam DO [facility]-10834 Level 3 Est. Patient 12:34:12 CDT Carlton rich MD [facility] CPT-72928 Level 2 Est. Patient 15:43:33 CDT Robi armstrong MD [facility] CPT-96689 Level 4 Est. Patient 14:04:44 CDT Carlton rich MD [facility] CPT-67397 Level 3 Est. Patient 05:47:59 CDT Ridge tam DO [facility] CPT-18617 Level 3 Est. Patient 13:12:53 COMPLAINT SUPERVISOR Carlton rich MD [facility] CPT-29929 Level 3 Est. Patient 14:26:53 CDT Hugo Restrepo MD [facility] Procedures Code Procedure Name Date Entry Date Standard Desc ription CPT-32539 Fluzone Quadrivalent Intramuscular Suspe nsion 0.5 ML 14:31:55 CDT CPT-65184 Abx/Therapy Injection 13:28:47 COMPLAINT SUPERVISOR CPT-J2930 Solu Medrol 125 mg (Methyl Prednisolone Sodium Succinate) 12:00:47 COMPLAINT SUPERVISOR CPT-22057 Venipuncture Draw Fee 11:33:31 CDT CPT-29973 EKG Trac and Interp 11:21:09 CDT CPT-30377 Chest 2V Frontal and Lat 11:21:09 CDT 12/15 CPT-66942 Venipuncture Draw Fee 08:02:34 CDT CPT-68880 Chest 2V Frontal and Lat 05:47:59 CDT 06/05
--- OUTSIDE RECORDS SUMMARY | 2019-10-08 10:21 | XMS REPORT | Clinical Summary ---
[...] BID prn had pain 2 CYCLOBENZAPRINE HCL [id number] Active Carlton Hu MD A ctive PROMETHAZINE-CODEINE 6.25-10 MG/5ML SYRP 1 tsp by mouth ever y 8 hours prn cough PROMETHAZINE-CODEINE 95984974295 No Longer Active Robert Hu MD Active MEDROL (REYNA) 4 MG TABS 6 pills x 1 day, then 5 pill s x 1 day then 4 pills x 1 day, then 3 pills x 1 day, then 2 pills x 1 day, then 1 pill x 1 day, then stop METHYLPREDNISOLONE 68337849181 No Longer Active Parris Mora MD Active AZITHROMYCIN 250 MG TABS 2 po qd x 1 day, then 1 po qd x 4 days AZITHROMYCIN 95689955914 No Longer Active Perez Mora MD Active SYMBICORT 160-4.5 MCG/ACT AERO 2 puffs bid with rinse after 2011 BUDESONIDE-FORMOTEROL FUMARATE [id number] No Longer Active Perez Mora MD Active LYRICA 75 MG CAPS TAKE 1 CAPSULE BY MOUTH TWICE DAILY 2013 PREGABALIN 94155436819 No Longer Active Carlton Hu MD Active LYRICA 100 MG CAPS Take 1 tab po BID for fibromyalgia PREGABALIN 16876151741 Active Carlton Hu MD Active TOPAMAX 25 MG TABS 1 qHS x 1 week, then 1 BID x 1 week, then 1 qAM and 2 qHS x 1 week, then 2 BID (migraine prevention) TOPIRAMAT E 73536600249 No Longer Active Jerica FUENTES Active TOPAMAX 50 MG TABS take 1 tab po BID for migraines. 12/07/10 TOPIRAMATE 95188090031 No Longer Active Jerica FUENTES Ac tive TOPAMAX 100 MG TABS Take 1 tablet po bid TOPIRAMATE 4999 1732232 Active Carlton Hu MD Active TRIAMCINOLONE ACETONIDE 0.1 % CREA apply three times daily prn r beatrice TRIAMCINOLONE ACETONIDE 66829095897 No Longer Active Carlton Hu MD Active PAXIL 40 MG TAB take 1 tab po qday for depression PAROXETINE HCL 06915181011 Active Carlton Hu MD Active CYMBALTA 30 MG CPEP 1 cap by mouth daily DULOXE SNEHA HCL 68598136177 Active Carlton Hu MD Active CHERATUSSIN AC 100-10 MG/5ML SYRP 5ml po q6hr PRN Cough GUAIFENESIN-CODEINE 76031952680 No Longer Active Carlton Hu MD Active MEDROL (REYNA) 4 MG TABS 6 tabs on day 1, 5 tabs on d ay 2, 4 tabs on day 3, 3 tabs on day 4, 2 tabs on day 5, 1 tab on day 6 METHYLPREDNISOLONE 76859438821 No Longer Active Perez Mora MD Active AZITHROMYCIN 250 MG TABS 2 po qd x 1 day, then 1 po qd x 4 days AZITHROMYCIN 09561582664 No Longer Active Perez Mora MD Active PROPRANOLOL HCL 60 MG TABS 1 PO Q D PROPRANOL OL HCL 85204474607 No Longer Active Perez Mora MD Active CHERATUSSIN AC 100-10 MG/5ML SYRP take one tsp po Q 6hours prn c ough GUAIFENESIN-CODEINE 83369399764 No Longer Active Perez Means Active AUGMENTIN 875-125 MG TAB 1 tab by mouth twice daily with food 20 12/03/31 AMOXICILLIN-POT CLAVULANATE 15185830843 No Longer Active Chanel Mora MD Active CHERATUSSIN AC 100-10 MG/5ML SYRP 1 tsp by mouth every 4 hours as needed for cough GUAIFENESIN-CODEINE 19191431847 No Longer Activ e Hugo Restrepo MD Active ACETAMINOPHEN-CODEINE #3 300-30 MG TABS 1 PO Q 4-6 HRS PRN PAIN ACETAMINOPHEN-CODEINE 27728332117 No Longer Active Hugo Restrepo MD Active LEVAQUIN 500 MG TABS take one po QD LEVOFLOXACI N 70591269178 No Longer Active Griffin HERNANDEZ Active PREDNISONE 20 MG TAB Take 3 tabs daily for 3 days , 2 tabs daily for 3 days, 1 tab daily for 3 days, 1/2 tab daily for 3 days P REDNISONE 69686012656 No Longer Active Carlton Hu MD Active AVELOX 400 MG TABS 1 tab by mouth daily MOXIFLO XACIN HCL 11035705646 No Longer Active Carlton Hu MD Active CHERATUSSIN AC 100-10 MG/5ML SYRP 1 tsp by mouth every 4 hours as needed for cough GUAIFENESIN-CODEINE 93524277153 No Longer Activ e Hugo Restrepo MD Active AVELOX 400 MG TABS 1 tab by mouth daily MOXIFLO XACIN HCL 92449902748 No Longer Active Marcy De La Rosa MD PhD Active TERBINAFINE HCL 250 MG TABS 1 qDay TERBINAF INE HCL 03438027915 No Longer Active Marcy De La Rosa MD PhD Active CHERATUSSIN AC 100-10 MG/5ML SYRP 1 tsp by mouth every 4 hours as needed for cough GUAIFENESIN-CODEINE 89247281324 No Longer Activ e Marcy De La Rosa MD PhD Active AVELOX 400 MG TABS 1 tab by mouth daily MOXIFLO XACIN HCL 14096573816 No Longer Active Marcy De La Rosa MD PhD Active HYDROCODONE-ACETAMINOPHEN 5-325 MG TABS 1 po q 6hr PRN cough 201 05/09/16 HYDROCODONE-ACETAMINOPHEN 05385398735 No Longer Active Marcy De La Rosa MD PhD Active PREDNISONE 20 MG TAB 2 tabs daily for 3 days, 1 t ab daily for 3 days, 1/2 tab daily for 2 days PREDNISONE 64150786500 No Longer Active Carlton Hu MD Active CEFDINIR 300 MG CAPS by mouth twice a day CEFDI ODILIA 61539745506 No Longer Active Carlton Hu MD Active ZOCOR 40 MG TAB 1 tab by mouth daily SIMVASTATIN 70592767003 Active Carlton Hu MD Active HYDROCHLOROTHIAZIDE 25 MG TABS 1 TAB PO DAILY H YDROCHLOROTHIAZIDE 08247673601 Active Carlton Hu MD Active ACETAMINOPHEN-CODEINE #3 300-30 MG TABS 1 tablet po q 4-6hrs prn pain ACETAMINOPHEN-CODEINE 44809742373 No Longer Active Ridge Bess DO Active ZITHROMAX 250 MG TAB 2 po today, then 1 po q days 2-5 AZITHROMYCIN 04204614885 No Longer Active Carlton Hu MD Acti ve CHERATUSSIN AC 100-10 MG/5ML SYRP take 1 tsp po q4-6 hours prn c ough GUAIFENESIN-CODEINE 83267679194 No Longer Active Carlton Hu MD Active ACETAMINOPHEN-CODEINE #3 300-30 MG TABS 1 PO Q 4-6 HR PRN PAIN 2 ACETAMINOPHEN-CODEINE 76731604265 No Longer Active Carlton rich MD Active LORTAB 7.5-500 MG/15ML ELIX 7.5 ml po q 4 hour prn cough HYDROCODONE-ACETAMINOPHEN 82686732074 No Longer Active Carlton Hu MD Active PREDNISONE 20 MG TAB 1 po bid 3 days, then 1 po q day 3 days 201 05/03/07 PREDNISONE 15066127290 No Longer Active Carlton Hu MD Active ELMIRON 100 MG CAPS 2 tablets in the am and 1 tablet at hs PENTOSAN POLYSULFATE SODIUM 12252397984 Active Gracie [place] Active CEFDINIR 300 MG CAPS by mouth twice a day CEFDI ODILIA 62751365473 No Longer Active Carlton Hu MD Active CEFDINIR 300 MG CAPS by mouth twice a day CEFDI ODILIA 69494315489 No Longer Active Carlton Hu MD Active CEFDINIR 300 MG CAPS by mouth twice a day CEFDI ODILIA 43554589193 No Longer Active Carlton Hu MD Active TESSALON PERLES 100 MG CAP 1 tablet by mouth 3 times daily a s needed for cough BENZONATATE 24030416580 No Longer Active Carlton bustamante MD Active CEFDINIR 300 MG CAPS by mouth twice a day CEFDI ODILIA 93626956865 No Longer Active Carlton Hu MD Active ZITHROMAX Z-REYNA 250 MG TABS 2 today, then 1 daily for 4 days 201 04/09/17 AZITHROMYCIN 84108702706 No Longer Active Hugo Restrepo MD Active PREMARIN 0.625 MG TABS TAKE 1 TAB BY MOUTH DAILY ESTROGENS CONJUGATED 44939654509 Active Carlton Hu MD Active TESSALON PERLES 100 MG CAP 1 tablet by mouth 3 times daily a s needed for cough TESSALON PERLES 100 MG CAP 308548 BENZONATATE I nactive PREDNISONE 20 MG TAB 1 po bid 3 days, then 1 po q day 3 days 201 05/03/07 PREDNISONE 20 MG TAB 088168 PREDNISONE Inactive LORTAB 7.5-500 MG/15ML ELIX 7.5 ml po q 4 hour prn cough LORTAB 7.5-500 MG/15ML ELIX HYDROCODONE-ACETAMINOPHEN Inacti ve ACETAMINOPHEN-CODEINE #3 300-30 MG TABS 1 PO Q 4-6 HR PRN PAIN 2 ACETAMINOPHEN-CODEINE #3 300-30 MG TABS 433809 ACETAMIN OPHEN-CODEINE Inactive CHERATUSSIN AC 100-10 MG/5ML SYRP take 1 tsp po q4-6 hours prn c ough CHERATUSSIN AC 100-10 MG/5ML SYRP 968733 GUAIFENESIN-CO DEINE Inactive ACETAMINOPHEN-CODEINE #3 300-30 MG TABS 1 tablet po q 4-6hrs prn pain ACETAMINOPHEN-CODEINE #3 300-30 MG TABS 759014 ACETAMIN OPHEN-CODEINE Inactive HYDROCODONE-ACETAMINOPHEN 5-325 MG TABS 1 po q 6hr PRN cough 201 05/09/16 HYDROCODONE-ACETAMINOPHEN 5-325 MG TABS 614645 HYDROCODONE-ACETAMINOPHEN Inactive AVELOX 400 MG TABS 1 tab by mouth daily A VELOX 400 MG TABS 831932 MOXIFLOXACIN HCL Inactive CHERATUSSIN AC 100-10 MG/5ML SYRP 1 tsp by mouth every 4 hours as needed for cough CHERATUSSIN AC 100-10 MG/5ML SYRP 162159 GUAIFENESIN-CODEINE Inactive TERBINAFINE HCL 250 MG TABS 1 qDay TERBINAFINE HCL 250 MG TABS 123018 TERBINAFINE HCL Inactive CHERATUSSIN AC 100-10 MG/5ML SYRP 1 tsp by mouth every 4 hours as needed for cough CHERATUSSIN AC 100-10 MG/5ML SYRP 018808 GUAIFENESIN-CODEINE Inactive ACETAMINOPHEN-CODEINE #3 300-30 MG TABS 1 PO Q 4-6 HRS PRN PAIN ACETAMINOPHEN-CODEINE #3 300-30 MG TABS 368734 ACETAMINOPHEN-CODEIN E Inactive CHERATUSSIN AC 100-10 MG/5ML SYRP 1 tsp by mouth every 4 hours as needed for cough CHERATUSSIN AC 100-10 MG/5ML SYRP 312145 GUAIFENESIN-CODEINE Inactive AUGMENTIN 875-125 MG TAB 1 tab by mouth twice daily with food 20 12/03/31 AUGMENTIN 875-125 MG TAB 337939 AMOXICILLIN-POT CLAVULA EFE Inactive CHERATUSSIN AC 100-10 MG/5ML SYRP take one tsp po Q 6hours prn c ough CHERATUSSIN AC 100-10 MG/5ML SYRP 628446 GUAIFENESIN-CO DEINE Inactive PROPRANOLOL HCL 60 MG TABS 1 PO Q D P ROPRANOLOL HCL 60 MG TABS 428044 PROPRANOLOL HCL Inactive TOPAMAX 50 MG TABS take 1 tab po BID for migraines. 12/07/10 TOPAMAX 50 MG TABS 138263 TOPIRAMATE Inactive TOPAMAX 25 MG TABS 1 qHS x 1 week, then 1 BID x 1 week, then 1 qAM and 2 qHS x 1 week, then 2 BID (migraine prevention) TOPAMAX 2 5 MG TABS 713116 TOPIRAMATE Inactive LYRICA 75 MG CAPS TAKE 1 CAPSULE BY MOUTH TWICE DAILY LYRICA 75 MG CAPS PREGABALIN Inactive SYMBICORT 160-4.5 MCG/ACT AERO 2 puffs bid with rinse after 2011 SYMBICORT 160-4.5 MCG/ACT AERO BUDESONIDE-FORMOT SÁNCHEZ FUMARATE Inactive PROMETHAZINE-CODEINE 6.25-10 MG/5ML SYRP 1 tsp by mouth ever y 8 hours prn cough PROMETHAZINE-CODEINE 6.25-10 MG/5ML SYRP 369365 PROMETHAZINE-CODEINE Inactive ZITHROMAX Z-REYNA 250 MG TABS 2 today, then 1 daily for 4 days 201 04/09/17 ZITHROMAX Z-REYNA 250 MG TABS 1507677 AZITHROMYCIN Inac tive CEFDINIR 300 MG CAPS by mouth twice a day CEFDINIR 300 MG CAPS 20020704 CEFDINIR Inactive CEFDINIR 300 MG CAPS by mouth twice a day CEFDINIR 300 MG CAPS 598232 CEFDINIR Inactive CEFDINIR 300 MG CAPS by mouth twice a day CEFDINIR 300 MG CAPS 193654 CEFDINIR Inactive CEFDINIR 300 MG CAPS by mouth twice a day CEFDINIR 300 MG CAPS 317036 CEFDINIR Inactive ZITHROMAX 250 MG TAB 2 po today, then 1 po q days 2-5 ZITHROMAX 250 MG TAB 4794513 AZITHROMYCIN Inactive CEFDINIR 300 MG CAPS by mouth twice a day CEFDINIR 300 MG CAPS 20020704 CEFDINIR Inactive PREDNISONE 20 MG TAB 2 tabs daily for 3 days, 1 t ab daily for 3 days, 1/2 tab daily for 2 days PREDNISONE 20 MG TAB 312176 PREDNISON E Inactive AVELOX 400 MG TABS 1 tab by mouth daily A VELOX 400 MG TABS 150400 MOXIFLOXACIN HCL Inactive AVELOX 400 MG TABS 1 tab by mouth daily A VELOX 400 MG TABS 686262 MOXIFLOXACIN HCL Inactive PREDNISONE 20 MG TAB Take 3 tabs daily for 3 days , 2 tabs daily for 3 days, 1 tab daily for 3 days, 1/2 tab daily for 3 days PREDNISONE 20 MG TAB 788011 PREDNISONE Inactive LEVAQUIN 500 MG TABS take one po QD LEVAQUIN 50 0 MG TABS 549168 LEVOFLOXACIN Inactive AZITHROMYCIN 250 MG TABS 2 po qd x 1 day, then 1 po qd x 4 days AZITHROMYCIN 250 MG TABS 8929108 AZITHROMYCIN Inactiv e MEDROL (REYNA) 4 MG TABS 6 tabs on day 1, 5 tabs on d ay 2, 4 tabs on day 3, 3 tabs on day 4, 2 tabs on day 5, 1 tab on day 6 MEDROL (REYNA) 4 MG TABS METHYLPREDNISOLONE Inactive CHERATUSSIN AC 100-10 MG/5ML SYRP 5ml po q6hr PRN Cough CHERATUSSIN AC 100-10 MG/5ML SYRP 145788 GUAIFENESIN-CODEINE Inacti ve TRIAMCINOLONE ACETONIDE 0.1 % CREA apply three times daily prn r beatrice TRIAMCINOLONE ACETONIDE 0.1 % CREA 7694980 TRIAMCINOLONE ACETONIDE Inactive AZITHROMYCIN 250 MG TABS 2 po qd x 1 day, then 1 po qd x 4 days AZITHROMYCIN 250 MG TABS 9457512 AZITHROMYCIN Inactiv e MEDROL (REYNA) 4 MG [...] ... - Chemistry sodium, serum 143 mmol/L 682-591 1949/01/24 potassium, serum 4.1 mmol/L 3.5-5.2 chloride, serum [...] 0.60 mg/dL 0.00-1.00 cholesterol, serum 227 mg/dL 353-219 0778/01/24 triglyceride, serum, fasting 97 mg/dL 30-200 HDL [...] mg/dL Encounters Code Encounter Date Provider Facility CPT-55817 Level 3 Est. Patient 10:03:07 CDT Perez Mora MD [facility] CPT-91912 Level 3 Est. Patient 19:50:35 PROTEOMICS SCIENTIST Carlton rich MD [facility] CPT-08786 Level 4 Est. Patient 18:05:01 PROTEOMICS SCIENTIST Carlton rich MD [facility] CPT-79598 Level 3 Est. Patient 10:45:55 PROTEOMICS SCIENTIST Hugo Restrepo MD [facility] CPT-78972 Level 3 Est. Patient 14:12:49 CDT Griffin HERNANDEZ [facility] CPT-70704 Level 3 Est. Patient 17:37:24 CDT Carlton rich MD [facility] CPT-77404 Level 3 Est. Patient 16:51:54 CDT Carlton rich MD [facility] CPT-42226 Level 3 Est. Patient 12:18:11 CDT Hugo Restrepo MD [facility] CPT-24075 Level 3 Est. Patient 11:30:25 CDT Marcy crisostomo MD PhD [facility] CPT-55759 Level 3 Est. Patient 12:00:47 PROTEOMICS SCIENTIST Carlton rich MD [facility] CPT-73639 Level 3 Est. Patient 16:31:06 PROTEOMICS SCIENTIST Carlton rich MD [facility] CPT-14709 Level 3 Est. Patient 16:23:24 PROTEOMICS SCIENTIST Ridge tam [facility] CPT-77276 Level 3 Est. Patient 12:34:12 CDT Carlton rich MD [facility] CPT-82455 Level 2 Est. Patient 15:43:33 CDT Robi armstrong MD [facility] CPT-38436 Level 4 Est. Patient 14:04:44 CDT Carlton rihc MD [facility] CPT-55952 Level 3 Est. Patient 05:47:59 CDT Ridge tam [facility] CPT-75770 Level 3 Est. Patient 13:12:53 PROTEOMICS SCIENTIST Carlton rich MD [facility] CPT-22524 Level 3 Est. Patient 14:26:53 CDT Hugo Restrepo MD [facility] Procedures Code Procedure Name Date Entry Date Standard Desc ription CPT-13540 Fluzone Quadrivalent Intramuscular Suspe nsion 0.5 ML 14:31:55 CDT CPT-32534 Abx/Therapy Injection 13:28:47 PROTEOMICS SCIENTIST CPT-J2930 Solu Medrol 125 mg (Methyl Prednisolone Sodium Succinate) 12:00:47 PROTEOMICS SCIENTIST CPT-37245 Venipuncture Draw Fee 11:33:31 CDT CPT-52772 EKG Trac and Interp 11:21:09 CDT CPT-37152 Chest 2V Frontal and Lat 11:21:09 CDT 12/15 CPT-24125 Venipuncture Draw Fee 08:02:34 CDT CPT-91808 Chest 2V Frontal and Lat 05:47:59 CDT 06/05
--- OUTSIDE RECORDS SUMMARY | 2019-10-08 10:21 | XMS REPORT | Clinical Summary ---
Author Author Admin, Juliana Martinez Organization [facility] Address Unknown Phone Allergies, Adverse Reactions, Alerts Allergy Name Reaction Description Start Date Severity Status Pr ovider No Known Allergies Zo meeks Conditions or Problems Problem Name Problem Code Onset Date Status Entry Date Provider Comment Standard Description Annotate BRONCHITIS 490 Inactive Hugo Restrepo MD Bronchitis, not specified as acute or chronic COLON CANCER V16.0 Active Carlton Hu MD Family history of malignant neoplasm of gastrointestinal tract DIABETES V18.0 Active Carlton Hu MD Family [...] PhD Routine general medical examination at a [facility] care facility MAMMOGRAM, ABNORMAL 793.80 Active Carlton [...] ICD-786.05 Inactive Marcy De La Rosa MD [facility] HEALTH SCREENING ICD-V70.0 Inactive Marcy ya MD [...] Name NDC Status Provider Patient Instruction TOPAMAX 25 MG TABS 1 qHS x 1 week, then 1 BID x 1 week, then 1 qAM and 2 qHS x 1 week, then 2 BID (migraine prevention) TOPIRAMAT E 43193148462 No Longer Active Jerica Osei RMTorin Active TOPAMAX 50 MG TABS take 1 tab po BID for migraines. 12/07/10 TOPIRAMATE 04027477788 No Longer Active Jerica Osei RMA Ac tive TOPAMAX 100 MG TABS Take 1 tablet po bid TOPIRAMATE 4999 7330251 Active Carlton Hu MD Active TRIAMCINOLONE ACETONIDE 0.1 % CREA apply three times daily prn r beatrice TRIAMCINOLONE ACETONIDE 12023276510 No Longer Active Carlton Hu MD Active PAXIL 40 MG TAB take 1 tab po qday for depression PAROXETINE HCL 35480788043 Active Carlton Hu MD Active CYMBALTA 30 MG CPEP 1 cap by mouth daily DULOXE SNEHA HCL 06578044829 Active Carlton Hu MD Active CHERATUSSIN AC 100-10 MG/5ML SYRP 5ml po q6hr PRN Cough GUAIFENESIN-CODEINE 36489755073 No Longer Active Carlton Hu MD Active MEDROL (REYNA) 4 MG TABS 6 tabs on day 1, 5 tabs on d ay 2, 4 tabs on day 3, 3 tabs on day 4, 2 tabs on day 5, 1 tab on day 6 METHYLPREDNISOLONE 11314427301 No Longer Active Perez Mora MD Active AZITHROMYCIN 250 MG TABS 2 po qd x 1 day, then 1 po qd x 4 days AZITHROMYCIN 20829567470 No Longer Active Perez Mora MD Active PROPRANOLOL HCL 60 MG TABS 1 PO Q D PROPRANOL OL HCL 17932851249 No Longer Active Perez Mora MD Active CHERATUSSIN AC 100-10 MG/5ML SYRP take one tsp po Q 6hours prn c ough GUAIFENESIN-CODEINE 57749314037 No Longer Active Perez Means Active AUGMENTIN 875-125 MG TAB 1 tab by mouth twice daily with food 20 12/03/31 AMOXICILLIN-POT CLAVULANATE 67033404098 No Longer Active Chanel Mora MD Active CHERATUSSIN AC 100-10 MG/5ML SYRP 1 tsp by mouth every 4 hours as needed for cough GUAIFENESIN-CODEINE 83489325058 No Longer Activ e Hugo Restrepo MD Active ACETAMINOPHEN-CODEINE #3 300-30 MG TABS 1 PO Q 4-6 HRS PRN PAIN ACETAMINOPHEN-CODEINE 01493706122 No Longer Active Hugo Restrepo MD Active LEVAQUIN 500 MG TABS take one po QD LEVOFLOXACI N 80706700450 No Longer Active Griffin HERNANDEZ Active PREDNISONE 20 MG TAB Take 3 tabs daily for 3 days , 2 tabs daily for 3 days, 1 tab daily for 3 days, 1/2 tab daily for 3 days P REDNISONE 16182263599 No Longer Active Carlton Hu MD Active AVELOX 400 MG TABS 1 tab by mouth daily MOXIFLO XACIN HCL 81800545883 No Longer Active Carlton Hu MD Active CHERATUSSIN AC 100-10 MG/5ML SYRP 1 tsp by mouth every 4 hours as needed for cough GUAIFENESIN-CODEINE 31234975963 No Longer Activ e Hugo Restrepo MD Active AVELOX 400 MG TABS 1 tab by mouth daily MOXIFLO XACIN HCL 93038007271 No Longer Active Marcy De La Rosa MD PhD Active TERBINAFINE HCL 250 MG TABS 1 qDay TERBINAF INE HCL 48785863753 No Longer Active Marcy De La Rosa MD PhD Active CHERATUSSIN AC 100-10 MG/5ML SYRP 1 tsp by mouth every 4 hours as needed for cough GUAIFENESIN-CODEINE 11343582955 No Longer Activ e Marcy De La Rosa MD PhD Active AVELOX 400 MG TABS 1 tab by mouth daily MOXIFLO XACIN HCL 81103591826 No Longer Active Marcy De La Rosa MD PhD Active HYDROCODONE-ACETAMINOPHEN 5-325 MG TABS 1 po q 6hr PRN cough 201 05/09/16 HYDROCODONE-ACETAMINOPHEN 31555337786 No Longer Active Marcy De La Rosa MD PhD Active PREDNISONE 20 MG TAB 2 tabs daily for 3 days, 1 t ab daily for 3 days, 1/2 tab daily for 2 days PREDNISONE 52288439566 No Longer Active Carlton Hu MD Active CEFDINIR 300 MG CAPS by mouth twice a day CEFDI ODILIA 84895526253 No Longer Active Carlton Hu MD Active ZOCOR 40 MG TAB 1 tab by mouth daily SIMVASTATIN 24496160214 Active Carlton Hu MD Active HYDROCHLOROTHIAZIDE 25 MG TABS 1 TAB PO DAILY H YDROCHLOROTHIAZIDE 33743783310 Active Carlton Hu MD Active ACETAMINOPHEN-CODEINE #3 300-30 MG TABS 1 tablet po q 4-6hrs prn pain ACETAMINOPHEN-CODEINE 30356261008 No Longer Active Ridge Bess DO Active ZITHROMAX 250 MG TAB 2 po today, then 1 po q days 2-5 AZITHROMYCIN 77434135327 No Longer Active Carlton Hu MD Acti ve CHERATUSSIN AC 100-10 MG/5ML SYRP take 1 tsp po q4-6 hours prn c ough GUAIFENESIN-CODEINE 05228791262 No Longer Active Carlton Hu MD Active ACETAMINOPHEN-CODEINE #3 300-30 MG TABS 1 PO Q 4-6 HR PRN PAIN 2 ACETAMINOPHEN-CODEINE 25439682223 No Longer Active Carlton rich MD Active LORTAB 7.5-500 MG/15ML ELIX 7.5 ml po q 4 hour prn cough HYDROCODONE-ACETAMINOPHEN 53780457760 No Longer Active Carlton Hu MD Active PREDNISONE 20 MG TAB 1 po bid 3 days, then 1 po q day 3 days 201 05/03/07 PREDNISONE 57489789406 No Longer Active Carlton Hu MD Active SYMBICORT 160-4.5 MCG/ACT AERO 2 puffs bid with rinse after BUDESONIDE-FORMOTEROL FUMARATE 33109656809 Active Carlton Hu MD Active ELMIRON 100 MG CAPS 2 tablets in the am and 1 tablet at hs PENTOSAN POLYSULFATE SODIUM 08365739544 Active Gracie Hamilton Active CEFDINIR 300 MG CAPS by mouth twice a day CEFDI ODILIA 50417956632 No Longer Active Carlton Hu MD Active CEFDINIR 300 MG CAPS by mouth twice a day CEFDI ODILIA 99910763834 No Longer Active Carlton Hu MD Active CEFDINIR 300 MG CAPS by mouth twice a day CEFDI ODILIA 86609684199 No Longer Active Carlton Hu MD Active TESSALON PERLES 100 MG CAP 1 tablet by mouth 3 times daily a s needed for cough BENZONATATE 87611507808 No Longer Active Carlton bustamante MD Active CEFDINIR 300 MG CAPS by mouth twice a day CEFDI ODILIA 55973459737 No Longer Active Carlton Hu MD Active ZITHROMAX Z-REYNA 250 MG TABS 2 today, then 1 daily for 4 days 201 04/09/17 AZITHROMYCIN 30567045815 No Longer Active Hugo Restrepo MD Active PREMARIN 0.625 MG TABS TAKE 1 TAB BY MOUTH DAILY ESTROGENS CONJUGATED 83384693662 Active Carlton Hu MD Active LYRICA 75 MG CAPS TAKE 1 CAPSULE BY MOUTH TWICE DAILY PREGABALIN 42552777600 Active Carlton Hu MD Active TESSALON PERLES 100 MG CAP 1 tablet by mouth 3 times daily a s needed for cough TESSALON PERLES 100 MG CAP 175472 BENZONATATE I nactive PREDNISONE 20 MG TAB 1 po bid 3 days, then 1 po q day 3 days 201 05/03/07 PREDNISONE 20 MG TAB 042508 PREDNISONE Inactive LORTAB 7.5-500 MG/15ML ELIX 7.5 ml po q 4 hour prn cough LORTAB 7.5-500 MG/15ML ELIX HYDROCODONE-ACETAMINOPHEN Inacti ve ACETAMINOPHEN-CODEINE #3 300-30 MG TABS 1 PO Q 4-6 HR PRN PAIN 2 ACETAMINOPHEN-CODEINE #3 300-30 MG TABS 794914 ACETAMIN OPHEN-CODEINE Inactive CHERATUSSIN AC 100-10 MG/5ML SYRP take 1 tsp po q4-6 hours prn c ough CHERATUSSIN AC 100-10 MG/5ML SYRP 378599 GUAIFENESIN-CO DEINE Inactive ACETAMINOPHEN-CODEINE #3 300-30 MG TABS 1 tablet po q 4-6hrs prn pain ACETAMINOPHEN-CODEINE #3 300-30 MG TABS 161862 ACETAMIN OPHEN-CODEINE Inactive HYDROCODONE-ACETAMINOPHEN 5-325 MG TABS 1 po q 6hr PRN cough 201 05/09/16 HYDROCODONE-ACETAMINOPHEN 5-325 MG TABS 753053 HYDROCODONE-ACETAMINOPHEN Inactive AVELOX 400 MG TABS 1 tab by mouth daily A VELOX 400 MG TABS 069803 MOXIFLOXACIN HCL Inactive CHERATUSSIN AC 100-10 MG/5ML SYRP 1 tsp by mouth every 4 hours as needed for cough CHERATUSSIN AC 100-10 MG/5ML SYRP 140581 GUAIFENESIN-CODEINE Inactive TERBINAFINE HCL 250 MG TABS 1 qDay TERBINAFINE HCL 250 MG TABS 534815 TERBINAFINE HCL Inactive CHERATUSSIN AC 100-10 MG/5ML SYRP 1 tsp by mouth every 4 hours as needed for cough CHERATUSSIN AC 100-10 MG/5ML SYRP 101776 GUAIFENESIN-CODEINE Inactive ACETAMINOPHEN-CODEINE #3 300-30 MG TABS 1 PO Q 4-6 HRS PRN PAIN ACETAMINOPHEN-CODEINE #3 300-30 MG TABS 867097 ACETAMINOPHEN-CODEIN E Inactive CHERATUSSIN AC 100-10 MG/5ML SYRP 1 tsp by mouth every 4 hours as needed for cough CHERATUSSIN AC 100-10 MG/5ML SYRP 136262 GUAIFENESIN-CODEINE Inactive AUGMENTIN 875-125 MG TAB 1 tab by mouth twice daily with food 20 12/03/31 AUGMENTIN 875-125 MG TAB 907141 AMOXICILLIN-POT CLAVULA EFE Inactive CHERATUSSIN AC 100-10 MG/5ML SYRP take one tsp po Q 6hours prn c ough CHERATUSSIN AC 100-10 MG/5ML SYRP 696957 GUAIFENESIN-CO DEINE Inactive PROPRANOLOL HCL 60 MG TABS 1 PO Q D P ROPRANOLOL HCL 60 MG TABS 304373 PROPRANOLOL HCL Inactive TOPAMAX 50 MG TABS take 1 tab po BID for migraines. 12/07/10 TOPAMAX 50 MG TABS 168053 TOPIRAMATE Inactive TOPAMAX 25 MG TABS 1 qHS x 1 week, then 1 BID x 1 week, then 1 qAM and 2 qHS x 1 week, then 2 BID (migraine prevention) TOPAMAX 2 5 MG TABS 382569 TOPIRAMATE Inactive ZITHROMAX Z-REYNA 250 MG TABS 2 today, then 1 daily for 4 days 201 04/09/17 ZITHROMAX Z-REYNA 250 MG TABS 9216304 AZITHROMYCIN Inac tive CEFDINIR 300 MG CAPS by mouth twice a day CEFDINIR 300 MG CAPS 20020704 CEFDINIR Inactive CEFDINIR 300 MG CAPS by mouth twice a day CEFDINIR 300 MG CAPS 20020704 CEFDINIR Inactive CEFDINIR 300 MG CAPS by mouth twice a day CEFDINIR 300 MG CAPS 318966 CEFDINIR Inactive CEFDINIR 300 MG CAPS by mouth twice a day CEFDINIR 300 MG CAPS 20020704 CEFDINIR Inactive ZITHROMAX 250 MG TAB 2 po today, then 1 po q days 2-5 ZITHROMAX 250 MG TAB 5054699 AZITHROMYCIN Inactive CEFDINIR 300 MG CAPS by mouth twice a day CEFDINIR 300 MG CAPS 20020704 CEFDINIR Inactive PREDNISONE 20 MG TAB 2 tabs daily for 3 days, 1 t ab daily for 3 days, 1/2 tab daily for 2 days PREDNISONE 20 MG TAB 744928 PREDNISON E Inactive AVELOX 400 MG TABS 1 tab by mouth daily A VELOX 400 MG TABS 394297 MOXIFLOXACIN HCL Inactive AVELOX 400 MG TABS 1 tab by mouth daily A VELOX 400 MG TABS 528038 MOXIFLOXACIN HCL Inactive PREDNISONE 20 MG TAB Take 3 tabs daily for 3 days , 2 tabs daily for 3 days, 1 tab daily for 3 days, 1/2 tab daily for 3 days PREDNISONE 20 MG TAB 625221 PREDNISONE Inactive LEVAQUIN 500 MG TABS take one po QD LEVAQUIN 50 0 MG TABS 686891 LEVOFLOXACIN Inactive AZITHROMYCIN 250 MG TABS 2 po qd x 1 day, then 1 po qd x 4 days AZITHROMYCIN 250 MG TABS 3843154 AZITHROMYCIN Inactiv e MEDROL (REYNA) 4 MG TABS 6 tabs on day 1, 5 tabs on d ay 2, 4 tabs on day 3, 3 tabs on day 4, 2 tabs on day 5, 1 tab on day 6 MEDROL (REYNA) 4 MG TABS METHYLPREDNISOLONE Inactive CHERATUSSIN AC 100-10 MG/5ML SYRP 5ml po q6hr PRN Cough CHERATUSSIN AC 100-10 MG/5ML SYRP 303004 GUAIFENESIN-CODEINE Inacti ve TRIAMCINOLONE ACETONIDE 0.1 % CREA apply three times daily prn r beatrice TRIAMCINOLONE ACETONIDE 0.1 % CREA 9257695 TRIAMCINOLONE ACETONIDE Inactive Vital Signs Date Name Value Unit Range Description blood pressure, diastolic 74 mm[Hg] BP srinivasan [...] weight E&M 152.38 [lb_av] Weight Measure d blood pressure, diastolic 81 mm[Hg] BP srinivasan blood pressure, systolic 124 mm[Hg] BP sys height E&M 152 [in_us] Bdy height pulse rate E&M 80 /min Heart rate temperature E&M 97.6 [degF] Body temp erature weight E&M 153 [lb_av] Weight Measure d blood pressure, diastolic 83 mm[Hg] BP srinivasan blood pressure, systolic 125 mm[Hg] BP sys height E&M 152 [in_us] Bdy height pulse rate E&M 106 /min Heart rate temperature E&M 97.4 [degF] Body temp erature weight E&M 152 [lb_av] Weight Measure d blood pressure, diastolic 72 mm[Hg] BP srinivasan blood pressure, systolic 106 mm[Hg] BP sys height E&M 63.5 [in_us] Bdy height pulse rate E&M 67 /min Heart rate temperature E&M 97.5 [degF] Body temp erature weight E&M 157 [lb_av] Weight Measure d Diagnostic Results Date Name Value Unit Range Description Lab Report: CBC, Comp. Metabolic Panel, Lipid Panel, Thyroid Stimulating ... - Chemistry sodium, serum 143 mmol/L 486-074 7528/01/24 potassium, serum 4.1 mmol/L 3.5-5.2 chloride, serum [...] 0.60 mg/dL 0.00-1.00 cholesterol, serum 227 mg/dL 833-866 6234/01/24 triglyceride, serum, fasting 97 mg/dL 30-200 HDL [...] mg/dL Encounters Code Encounter Date Provider Facility CPT-36422 Level 3 Est. Patient 19:50:35 [employer] Carlton rich MD [facility] CPT-47482 Level 4 Est. Patient 18:05:01 [employer] Carlton rich MD [facility] CPT-71612 Level 3 Est. Patient 10:45:55 [employer] Hugo Restrepo MD [facility] CPT-93475 Level 3 Est. Patient 14:12:49 CDT Griffin HERNANDEZ [facility] CPT-63325 Level 3 Est. Patient 17:37:24 CDT Carlton rich MD [facility] CPT-71929 Level 3 Est. Patient 16:51:54 CDT Carlton rich MD [facility] CPT-92746 Level 3 Est. Patient 12:18:11 CDT Hugo Restrepo MD [facility] CPT-51777 Level 3 Est. Patient 11:30:25 CDT Marcy crisostomo MD PhD [facility] CPT-72079 Level 3 Est. Patient 12:00:47 [employer] Carlton rich MD [facility] CPT-30911 Level 3 Est. Patient 16:31:06 [employer] Carlton rich MD [facility] CPT-33817 Level 3 Est. Patient 16:23:24 [employer] Ridge tam [facility] CPT-45958 Level 3 Est. Patient 12:34:12 CDT Carlton rich MD [facility] CPT-53120 Level 2 Est. Patient 15:43:33 CDT Robi armstrong MD [facility] CPT-20840 Level 4 Est. Patient 14:04:44 CDT Carlton rich MD [facility] CPT-56878 Level 3 Est. Patient 05:47:59 CDT Ridge tam [facility] CPT-37600 Level 3 Est. Patient 13:12:53 [employer] Carlton rich MD [facility] CPT-69144 Level 3 Est. Patient 14:26:53 CDT Hugo Restrepo MD [facility] Procedures Code Procedure Name Date Entry Date Standard Desc ription CPT-62564 Abx/Therapy Injection 13:28:47 [employer] CPT-J2930 Solu Medrol 125 mg (Methyl Prednisolone Sodium Succinate) 12:00:47 [employer] CPT-90677 Venipuncture Draw Fee 11:33:31 CDT CPT-38420 EKG Trac and Interp 11:21:09 CDT CPT-52024 Chest 2V Frontal and Lat 11:21:09 CDT 12/15 CPT-39389 Venipuncture Draw Fee 08:02:34 CDT CPT-67393 Chest 2V Frontal and Lat 05:47:59 CDT 06/05
--- OUTSIDE RECORDS SUMMARY | 2019-10-08 10:21 | XMS REPORT | Clinical Summary ---
Author Author Caitlin, Juliana Martinez Organization [facility] Address Unknown Phone Unavailable Allergies, Adverse [...] BID prn had pain 2 CYCLOBENZAPRINE HCL [id number] Active Carlton Hu MD A ctive PROMETHAZINE-CODEINE 6.25-10 MG/5ML SYRP 1 tsp by mouth ever y 8 hours prn cough PROMETHAZINE-CODEINE 93393752039 No Longer Active Robert Hu MD Active MEDROL (REYNA) 4 MG TABS 6 pills x 1 day, then 5 pill s x 1 day then 4 pills x 1 day, then 3 pills x 1 day, then 2 pills x 1 day, then 1 pill x 1 day, then stop METHYLPREDNISOLONE 10810970158 No Longer Active Parris Mora MD Active AZITHROMYCIN 250 MG TABS 2 po qd x 1 day, then 1 po qd x 4 days AZITHROMYCIN 95687845662 No Longer Active Perez Mora MD Active SYMBICORT 160-4.5 MCG/ACT AERO 2 puffs bid with rinse after 2011 BUDESONIDE-FORMOTEROL FUMARATE 13326314167 No Longer Active Perez Mora MD Active LYRICA 75 MG CAPS TAKE 1 CAPSULE BY MOUTH TWICE DAILY 2013 PREGABALIN 69532859031 No Longer Active Carlton Hu MD Active LYRICA 100 MG CAPS Take 1 tab po BID for fibromyalgia PREGABALIN 12107256684 Active Carlton Hu MD Active TOPAMAX 25 MG TABS 1 qHS x 1 week, then 1 BID x 1 week, then 1 qAM and 2 qHS x 1 week, then 2 BID (migraine prevention) TOPIRAMAT E 74076126317 No Longer Active Jerica FUENTES Active TOPAMAX 50 MG TABS take 1 tab po BID for migraines. 12/07/10 TOPIRAMATE 33933225331 No Longer Active Jerica FUENTES Ac tive TOPAMAX 100 MG TABS Take 1 tablet po bid TOPIRAMATE 4999 1814251 Active Carlton Hu MD Active TRIAMCINOLONE ACETONIDE 0.1 % CREA apply three times daily prn r beatrice TRIAMCINOLONE ACETONIDE 79254853257 No Longer Active Carlton Hu MD Active PAXIL 40 MG TAB take 1 tab po qday for depression PAROXETINE HCL 98857646238 Active Carlton Hu MD Active CYMBALTA 30 MG CPEP 1 cap by mouth daily DULOXE SNEHA HCL 01442732346 Active Carlton Hu MD Active CHERATUSSIN AC 100-10 MG/5ML SYRP 5ml po q6hr PRN Cough GUAIFENESIN-CODEINE 99401047819 No Longer Active Carlton Hu MD Active MEDROL (REYNA) 4 MG TABS 6 tabs on day 1, 5 tabs on d ay 2, 4 tabs on day 3, 3 tabs on day 4, 2 tabs on day 5, 1 tab on day 6 METHYLPREDNISOLONE 42671940817 No Longer Active Perez Mora MD Active AZITHROMYCIN 250 MG TABS 2 po qd x 1 day, then 1 po qd x 4 days AZITHROMYCIN 17663859588 No Longer Active Perez Mora MD Active PROPRANOLOL HCL 60 MG TABS 1 PO Q D PROPRANOL OL HCL 53755209737 No Longer Active Perez Mora MD Active CHERATUSSIN AC 100-10 MG/5ML SYRP take one tsp po Q 6hours prn c ough GUAIFENESIN-CODEINE 25602095380 No Longer Active Perez Means Active AUGMENTIN 875-125 MG TAB 1 tab by mouth twice daily with food 20 12/03/31 AMOXICILLIN-POT CLAVULANATE 65969782613 No Longer Active Chanel Mora MD Active CHERATUSSIN AC 100-10 MG/5ML SYRP 1 tsp by mouth every 4 hours as needed for cough GUAIFENESIN-CODEINE 06188240958 No Longer Activ e Hugo Restrepo MD Active ACETAMINOPHEN-CODEINE #3 300-30 MG TABS 1 PO Q 4-6 HRS PRN PAIN ACETAMINOPHEN-CODEINE 06660188019 No Longer Active Hugo Restrepo MD Active LEVAQUIN 500 MG TABS take one po QD LEVOFLOXACI N 53709262067 No Longer Active Griffin HERNANDEZ Active PREDNISONE 20 MG TAB Take 3 tabs daily for 3 days , 2 tabs daily for 3 days, 1 tab daily for 3 days, 1/2 tab daily for 3 days P REDNISONE 86530671589 No Longer Active Carlton Hu MD Active AVELOX 400 MG TABS 1 tab by mouth daily MOXIFLO XACIN HCL 99083608693 No Longer Active Carlton Hu MD Active CHERATUSSIN AC 100-10 MG/5ML SYRP 1 tsp by mouth every 4 hours as needed for cough GUAIFENESIN-CODEINE 85551214870 No Longer Activ e Hugo Restrepo MD Active AVELOX 400 MG TABS 1 tab by mouth daily MOXIFLO XACIN HCL 96721419755 No Longer Active Marcy De La Rosa MD PhD Active TERBINAFINE HCL 250 MG TABS 1 qDay TERBINAF INE HCL 85928954947 No Longer Active Marcy De La Rosa MD PhD Active CHERATUSSIN AC 100-10 MG/5ML SYRP 1 tsp by mouth every 4 hours as needed for cough GUAIFENESIN-CODEINE 09633672491 No Longer Activ e Marcy De La Rosa MD PhD Active AVELOX 400 MG TABS 1 tab by mouth daily MOXIFLO XACIN HCL 70198364078 No Longer Active Marcy De La Rosa MD PhD Active HYDROCODONE-ACETAMINOPHEN 5-325 MG TABS 1 po q 6hr PRN cough 201 05/09/16 HYDROCODONE-ACETAMINOPHEN 29938322725 No Longer Active Marcy De La Rosa MD PhD Active PREDNISONE 20 MG TAB 2 tabs daily for 3 days, 1 t ab daily for 3 days, 1/2 tab daily for 2 days PREDNISONE 51915513908 No Longer Active Carlton Hu MD Active CEFDINIR 300 MG CAPS by mouth twice a day CEFDI ODILIA 08357484084 No Longer Active Carlton Hu MD Active ZOCOR 40 MG TAB 1 tab by mouth daily SIMVASTATIN 96301374754 Active Carlton Hu MD Active HYDROCHLOROTHIAZIDE 25 MG TABS 1 TAB PO DAILY H YDROCHLOROTHIAZIDE 02686389354 Active Carlton Hu MD Active ACETAMINOPHEN-CODEINE #3 300-30 MG TABS 1 tablet po q 4-6hrs prn pain ACETAMINOPHEN-CODEINE 72665382192 No Longer Active Ridge Bess DO Active ZITHROMAX 250 MG TAB 2 po today, then 1 po q days 2-5 AZITHROMYCIN 37057894542 No Longer Active Carlton Hu MD Acti ve CHERATUSSIN AC 100-10 MG/5ML SYRP take 1 tsp po q4-6 hours prn c ough GUAIFENESIN-CODEINE 51784789002 No Longer Active Carlton Hu MD Active ACETAMINOPHEN-CODEINE #3 300-30 MG TABS 1 PO Q 4-6 HR PRN PAIN 2 ACETAMINOPHEN-CODEINE 63684915956 No Longer Active Carlton rich MD Active LORTAB 7.5-500 MG/15ML ELIX 7.5 ml po q 4 hour prn cough HYDROCODONE-ACETAMINOPHEN 39939744682 No Longer Active Carlton Hu MD Active PREDNISONE 20 MG TAB 1 po bid 3 days, then 1 po q day 3 days 201 05/03/07 PREDNISONE 65280969487 No Longer Active Carlton Hu MD Active ELMIRON 100 MG CAPS 2 tablets in the am and 1 tablet at hs PENTOSAN POLYSULFATE SODIUM 44062034440 Active Gracie [place] Active CEFDINIR 300 MG CAPS by mouth twice a day CEFDI ODILIA 32439005257 No Longer Active Carlton Hu MD Active CEFDINIR 300 MG CAPS by mouth twice a day CEFDI ODILIA 29118674908 No Longer Active Carlton Hu MD Active CEFDINIR 300 MG CAPS by mouth twice a day CEFDI ODILIA 69623151477 No Longer Active Carlton Hu MD Active TESSALON PERLES 100 MG CAP 1 tablet by mouth 3 times daily a s needed for cough BENZONATATE 66030372125 No Longer Active Carlton bustamante MD Active CEFDINIR 300 MG CAPS by mouth twice a day CEFDI ODILIA 54106318432 No Longer Active Carlton Hu MD Active ZITHROMAX Z-REYNA 250 MG TABS 2 today, then 1 daily for 4 days 201 04/09/17 AZITHROMYCIN 87870510059 No Longer Active Hugo Restrepo MD Active PREMARIN 0.625 MG TABS TAKE 1 TAB BY MOUTH DAILY ESTROGENS CONJUGATED 88166101715 Active Carlton Hu MD Active TESSALON PERLES 100 MG CAP 1 tablet by mouth 3 times daily a s needed for cough TESSALON PERLES 100 MG CAP 806877 BENZONATATE I nactive PREDNISONE 20 MG TAB 1 po bid 3 days, then 1 po q day 3 days 201 05/03/07 PREDNISONE 20 MG TAB 652829 PREDNISONE Inactive LORTAB 7.5-500 MG/15ML ELIX 7.5 ml po q 4 hour prn cough LORTAB 7.5-500 MG/15ML ELIX HYDROCODONE-ACETAMINOPHEN Inacti ve ACETAMINOPHEN-CODEINE #3 300-30 MG TABS 1 PO Q 4-6 HR PRN PAIN 2 ACETAMINOPHEN-CODEINE #3 300-30 MG TABS 289339 ACETAMIN OPHEN-CODEINE Inactive CHERATUSSIN AC 100-10 MG/5ML SYRP take 1 tsp po q4-6 hours prn c ough CHERATUSSIN AC 100-10 MG/5ML SYRP 189968 GUAIFENESIN-CO DEINE Inactive ACETAMINOPHEN-CODEINE #3 300-30 MG TABS 1 tablet po q 4-6hrs prn pain ACETAMINOPHEN-CODEINE #3 300-30 MG TABS 034855 ACETAMIN OPHEN-CODEINE Inactive HYDROCODONE-ACETAMINOPHEN 5-325 MG TABS 1 po q 6hr PRN cough 201 05/09/16 HYDROCODONE-ACETAMINOPHEN 5-325 MG TABS 174534 HYDROCODONE-ACETAMINOPHEN Inactive AVELOX 400 MG TABS 1 tab by mouth daily A VELOX 400 MG TABS 683352 MOXIFLOXACIN HCL Inactive CHERATUSSIN AC 100-10 MG/5ML SYRP 1 tsp by mouth every 4 hours as needed for cough CHERATUSSIN AC 100-10 MG/5ML SYRP 794182 GUAIFENESIN-CODEINE Inactive TERBINAFINE HCL 250 MG TABS 1 qDay TERBINAFINE HCL 250 MG TABS 785503 TERBINAFINE HCL Inactive CHERATUSSIN AC 100-10 MG/5ML SYRP 1 tsp by mouth every 4 hours as needed for cough CHERATUSSIN AC 100-10 MG/5ML SYRP 044520 GUAIFENESIN-CODEINE Inactive ACETAMINOPHEN-CODEINE #3 300-30 MG TABS 1 PO Q 4-6 HRS PRN PAIN ACETAMINOPHEN-CODEINE #3 300-30 MG TABS 350033 ACETAMINOPHEN-CODEIN E Inactive CHERATUSSIN AC 100-10 MG/5ML SYRP 1 tsp by mouth every 4 hours as needed for cough CHERATUSSIN AC 100-10 MG/5ML SYRP 725345 GUAIFENESIN-CODEINE Inactive AUGMENTIN 875-125 MG TAB 1 tab by mouth twice daily with food 20 12/03/31 AUGMENTIN 875-125 MG TAB 564343 AMOXICILLIN-POT CLAVULA EFE Inactive CHERATUSSIN AC 100-10 MG/5ML SYRP take one tsp po Q 6hours prn c ough CHERATUSSIN AC 100-10 MG/5ML SYRP 555413 GUAIFENESIN-CO DEINE Inactive PROPRANOLOL HCL 60 MG TABS 1 PO Q D P ROPRANOLOL HCL 60 MG TABS 284759 PROPRANOLOL HCL Inactive TOPAMAX 50 MG TABS take 1 tab po BID for migraines. 12/07/10 TOPAMAX 50 MG TABS 679071 TOPIRAMATE Inactive TOPAMAX 25 MG TABS 1 qHS x 1 week, then 1 BID x 1 week, then 1 qAM and 2 qHS x 1 week, then 2 BID (migraine prevention) TOPAMAX 2 5 MG TABS 868815 TOPIRAMATE Inactive LYRICA 75 MG CAPS TAKE 1 CAPSULE BY MOUTH TWICE DAILY LYRICA 75 MG CAPS PREGABALIN Inactive SYMBICORT 160-4.5 MCG/ACT AERO 2 puffs bid with rinse after 2011 SYMBICORT 160-4.5 MCG/ACT AERO BUDESONIDE-FORMOT SÁNCHEZ FUMARATE Inactive PROMETHAZINE-CODEINE 6.25-10 MG/5ML SYRP 1 tsp by mouth ever y 8 hours prn cough PROMETHAZINE-CODEINE 6.25-10 MG/5ML SYRP 086291 PROMETHAZINE-CODEINE Inactive ZITHROMAX Z-REYNA 250 MG TABS 2 today, then 1 daily for 4 days 201 04/09/17 ZITHROMAX Z-REYNA 250 MG TABS 8030957 AZITHROMYCIN Inac tive CEFDINIR 300 MG CAPS by mouth twice a day CEFDINIR 300 MG CAPS 20020704 CEFDINIR Inactive CEFDINIR 300 MG CAPS by mouth twice a day CEFDINIR 300 MG CAPS 870755 CEFDINIR Inactive CEFDINIR 300 MG CAPS by mouth twice a day CEFDINIR 300 MG CAPS 388459 CEFDINIR Inactive CEFDINIR 300 MG CAPS by mouth twice a day CEFDINIR 300 MG CAPS 716215 CEFDINIR Inactive ZITHROMAX 250 MG TAB 2 po today, then 1 po q days 2-5 ZITHROMAX 250 MG TAB 8737860 AZITHROMYCIN Inactive CEFDINIR 300 MG CAPS by mouth twice a day CEFDINIR 300 MG CAPS 20020704 CEFDINIR Inactive PREDNISONE 20 MG TAB 2 tabs daily for 3 days, 1 t ab daily for 3 days, 1/2 tab daily for 2 days PREDNISONE 20 MG TAB 357084 PREDNISON E Inactive AVELOX 400 MG TABS 1 tab by mouth daily A VELOX 400 MG TABS 434689 MOXIFLOXACIN HCL Inactive AVELOX 400 MG TABS 1 tab by mouth daily A VELOX 400 MG TABS 015575 MOXIFLOXACIN HCL Inactive PREDNISONE 20 MG TAB Take 3 tabs daily for 3 days , 2 tabs daily for 3 days, 1 tab daily for 3 days, 1/2 tab daily for 3 days PREDNISONE 20 MG TAB 128744 PREDNISONE Inactive LEVAQUIN 500 MG TABS take one po QD LEVAQUIN 50 0 MG TABS 383415 LEVOFLOXACIN Inactive AZITHROMYCIN 250 MG TABS 2 po qd x 1 day, then 1 po qd x 4 days AZITHROMYCIN 250 MG TABS 3741238 AZITHROMYCIN Inactiv e MEDROL (REYNA) 4 MG TABS 6 tabs on day 1, 5 tabs on d ay 2, 4 tabs on day 3, 3 tabs on day 4, 2 tabs on day 5, 1 tab on day 6 MEDROL (REYNA) 4 MG TABS METHYLPREDNISOLONE Inactive CHERATUSSIN AC 100-10 MG/5ML SYRP 5ml po q6hr PRN Cough CHERATUSSIN AC 100-10 MG/5ML SYRP 551755 GUAIFENESIN-CODEINE Inacti ve TRIAMCINOLONE ACETONIDE 0.1 % CREA apply three times daily prn r beatrice TRIAMCINOLONE ACETONIDE 0.1 % CREA 3549568 TRIAMCINOLONE ACETONIDE Inactive AZITHROMYCIN 250 MG TABS 2 po qd x 1 day, then 1 po qd x 4 days AZITHROMYCIN 250 MG TABS 8891039 AZITHROMYCIN Inactiv e MEDROL (REYNA) 4 MG [...] ... - Chemistry sodium, serum 143 mmol/L 769-631 9894/01/24 potassium, serum 4.1 mmol/L 3.5-5.2 chloride, serum [...] 0.60 mg/dL 0.00-1.00 cholesterol, serum 227 mg/dL 519-044 3630/01/24 triglyceride, serum, fasting 97 mg/dL 30-200 HDL [...] Sed Rate, CBC - Hematology mean corpuscular hemoglobin concentration, RBC 34.1 G/DL % 31.8-35.4 red blood cell distribution width 12.8 % 11 .6-14.8 platelet count 371 10^3/MM^3 10*3/mm3 908-563 7691/10/23 leukocyte count, blood 4.1 10^3/MM^3 10*3/mm3 4.6-10.2 [...] mg/dL Encounters Code Encounter Date Provider Facility CPT-95590 Level 3 Est. Patient 10:03:07 CDT Perez Mora MD [facility] CPT-38760 Level 3 Est. Patient 19:50:35 PIE FILLER Carlton rich MD [facility] CPT-37612 Level 4 Est. Patient 18:05:01 PIE FILLER Carlton rich MD [facility] CPT-34178 Level 3 Est. Patient 10:45:55 PIE FILLER Hugo Restrepo MD [facility] CPT-47811 Level 3 Est. Patient 14:12:49 CDT Griffin HERNANDEZ [facility] CPT-97029 Level 3 Est. Patient 17:37:24 CDT Carlton rich MD [facility] CPT-34640 Level 3 Est. Patient 16:51:54 CDT Carlton rich MD [facility] CPT-94572 Level 3 Est. Patient 12:18:11 CDT Hugo Restrepo MD [facility] CPT-82763 Level 3 Est. Patient 11:30:25 CDT Marcy crisostomo MD, PhD [facility] CPT-82315 Level 3 Est. Patient 12:00:47 PIE FILLER Carlton rich MD [facility] CPT-89833 Level 3 Est. Patient 16:31:06 PIE FILLER Carlton rich MD [facility] CPT-57755 Level 3 Est. Patient 16:23:24 PIE FILLER Ridge tam DO [facility] CPT-17393 Level 3 Est. Patient 12:34:12 CDT Carlton rich MD [facility] CPT-06026 Level 2 Est. Patient 15:43:33 CDT Robi armstrong MD [facility] CPT-41597 Level 4 Est. Patient 14:04:44 CDT Carlton rich MD [facility] CPT-98763 Level 3 Est. Patient 05:47:59 CDT Ridge Jaun Celeste tam DO [facility] CPT-42860 Level 3 Est. Patient 13:12:53 PIE FILLER Carlton rich MD [facility] CPT-38102 Level 3 Est. Patient 14:26:53 CDT Hugo Restrepo MD [facility] Procedures Code Procedure Name Date Entry Date Standard Desc ription CPT-63207 Fluzone Quadrivalent Intramuscular Suspe nsion 0.5 ML 14:31:55 CDT CPT-64067 Abx/Therapy Injection 13:28:47 PIE FILLER CPT-J2930 Solu Medrol 125 mg (Methyl Prednisolone Sodium Succinate) 12:00:47 PIE FILLER CPT-55909 Venipuncture Draw Fee 11:33:31 CDT CPT-66125 EKG Trac and Interp 11:21:09 CDT CPT-66921 Chest 2V Frontal and Lat 11:21:09 CDT 12/15 CPT-92552 Venipuncture Draw Fee 08:02:34 CDT CPT-93823 Chest 2V Frontal and Lat 05:47:59 CDT 06/05
[2019-10-08] MEDS ORDERED: morphine INJ 10 MG/ML 1ML (SYR OR VIAL) ONE (10:22)
--- OUTSIDE RECORDS SUMMARY | 2019-10-08 10:22 | XMS REPORT | Clinical Summary ---
Author Author Admin, Juliana Martinez Organization [facility] Address Unknown Phone Allergies, Adverse Reactions, Alerts [...] PhD Routine general medical examination at a [facility] care facility MAMMOGRAM, ABNORMAL [phone] Active Carlton [...] ICD-786.05 Inactive Marcy De La Rosa MD [facility] HEALTH SCREENING ICD-V70.0 Inactive Marcy ya MD [...] then 2 BID (migraine prevention) TOPIRAMAT E [id number] No Longer Active Jerica Osei RMTorin Active TOPAMAX 50 MG TABS take 1 tab po BID for migraines. 12/07/10 TOPIRAMATE 29125545266 No Longer Active Jerica Osei RMA Ac tive TOPAMAX 100 MG TABS Take 1 tablet po bid TOPIRAMATE 4999 9399007 Active Carlton Hu MD Active TRIAMCINOLONE ACETONIDE 0.1 % CREA apply three times daily prn r beatrice TRIAMCINOLONE ACETONIDE 47614537144 No Longer Active Carlton Hu MD Active PAXIL 40 MG TAB take 1 tab po qday for depression PAROXETINE HCL 52614871558 Active Carlton Hu MD Active CYMBALTA 30 MG CPEP 1 cap by mouth daily DULOXE SNEHA HCL 22817476697 Active Carlton Hu MD Active CHERATUSSIN AC 100-10 MG/5ML SYRP 5ml po q6hr PRN Cough GUAIFENESIN-CODEINE 67245695572 No Longer Active Carlton Hu MD Active MEDROL (REYNA) 4 MG TABS 6 tabs on day 1, 5 tabs on d ay 2, 4 tabs on day 3, 3 tabs on day 4, 2 tabs on day 5, 1 tab on day 6 METHYLPREDNISOLONE 28394656053 No Longer Active Perez Mora MD Active AZITHROMYCIN 250 MG TABS 2 po qd x 1 day, then 1 po qd x 4 days AZITHROMYCIN 47308926771 No Longer Active Perez Mora MD Active PROPRANOLOL HCL 60 MG TABS 1 PO Q D PROPRANOL OL HCL 01912805429 No Longer Active Perez Mora MD Active CHERATUSSIN AC 100-10 MG/5ML SYRP take one tsp po Q 6hours prn c ough GUAIFENESIN-CODEINE 06971542809 No Longer Active Perez Means Active AUGMENTIN 875-125 MG TAB 1 tab by mouth twice daily with food 20 12/03/31 AMOXICILLIN-POT CLAVULANATE 22093477319 No Longer Active Chanel Mora MD Active CHERATUSSIN AC 100-10 MG/5ML SYRP 1 tsp by mouth every 4 hours as needed for cough GUAIFENESIN-CODEINE 59419442033 No Longer Activ e Hugo Restrepo MD Active ACETAMINOPHEN-CODEINE #3 300-30 MG TABS 1 PO Q 4-6 HRS PRN PAIN ACETAMINOPHEN-CODEINE 57218303439 No Longer Active Hugo Restrepo MD Active LEVAQUIN 500 MG TABS take one po QD LEVOFLOXACI N 07955260089 No Longer Active Griffin HERNANDEZ Active PREDNISONE 20 MG TAB Take 3 tabs daily for 3 days , 2 tabs daily for 3 days, 1 tab daily for 3 days, 1/2 tab daily for 3 days P REDNISONE 87686304341 No Longer Active Carlton Hu MD Active AVELOX 400 MG TABS 1 tab by mouth daily MOXIFLO XACIN HCL 72757089616 No Longer Active Carlton Hu MD Active CHERATUSSIN AC 100-10 MG/5ML SYRP 1 tsp by mouth every 4 hours as needed for cough GUAIFENESIN-CODEINE 23505159942 No Longer Activ e Hugo Restrepo MD Active AVELOX 400 MG TABS 1 tab by mouth daily MOXIFLO XACIN HCL 86071674627 No Longer Active Marcy De La Rosa MD PhD Active TERBINAFINE HCL 250 MG TABS 1 qDay TERBINAF INE HCL 50520935934 No Longer Active Marcy De La Rosa MD PhD Active CHERATUSSIN AC 100-10 MG/5ML SYRP 1 tsp by mouth every 4 hours as needed for cough GUAIFENESIN-CODEINE 94256347868 No Longer Activ e Marcy De La Rosa MD PhD Active AVELOX 400 MG TABS 1 tab by mouth daily MOXIFLO XACIN HCL 23132642174 No Longer Active Marcy De La Rosa MD PhD Active HYDROCODONE-ACETAMINOPHEN 5-325 MG TABS 1 po q 6hr PRN cough 201 05/09/16 HYDROCODONE-ACETAMINOPHEN 45938167952 No Longer Active Marcy De La Rosa MD PhD Active PREDNISONE 20 MG TAB 2 tabs daily for 3 days, 1 t ab daily for 3 days, 1/2 tab daily for 2 days PREDNISONE 78364863945 No Longer Active Carlton Hu MD Active CEFDINIR 300 MG CAPS by mouth twice a day CEFDI ODILIA 23084300848 No Longer Active Carlton Hu MD Active ZOCOR 40 MG TAB 1 tab by mouth daily SIMVASTATIN 67067053713 Active Carlton Hu MD Active HYDROCHLOROTHIAZIDE 25 MG TABS 1 TAB PO DAILY H YDROCHLOROTHIAZIDE 20141172752 Active Carlton Hu MD Active ACETAMINOPHEN-CODEINE #3 300-30 MG TABS 1 tablet po q 4-6hrs prn pain ACETAMINOPHEN-CODEINE 61709836808 No Longer Active Ridge Bess DO Active ZITHROMAX 250 MG TAB 2 po today, then 1 po q days 2-5 AZITHROMYCIN 96312149505 No Longer Active Carlton Hu MD Acti ve CHERATUSSIN AC 100-10 MG/5ML SYRP take 1 tsp po q4-6 hours prn c ough GUAIFENESIN-CODEINE 01207890528 No Longer Active Carlton Hu MD Active ACETAMINOPHEN-CODEINE #3 300-30 MG TABS 1 PO Q 4-6 HR PRN PAIN 2 ACETAMINOPHEN-CODEINE 14813966378 No Longer Active Carlton rich MD Active LORTAB 7.5-500 MG/15ML ELIX 7.5 ml po q 4 hour prn cough HYDROCODONE-ACETAMINOPHEN 50534666408 No Longer Active Carlton Hu MD Active PREDNISONE 20 MG TAB 1 po bid 3 days, then 1 po q day 3 days 201 05/03/07 PREDNISONE 16081375512 No Longer Active Carlton Hu MD Active SYMBICORT 160-4.5 MCG/ACT AERO 2 puffs bid with rinse after BUDESONIDE-FORMOTEROL FUMARATE 05141627000 Active Carlton Hu MD Active ELMIRON 100 MG CAPS 2 tablets in the am and 1 tablet at hs PENTOSAN POLYSULFATE SODIUM 15074437179 Active Gracie Canadensis Active CEFDINIR 300 MG CAPS by mouth twice a day CEFDI ODILIA 23881346390 No Longer Active Carlton Hu MD Active CEFDINIR 300 MG CAPS by mouth twice a day CEFDI ODILIA 29350764609 No Longer Active Carlton Hu MD Active CEFDINIR 300 MG CAPS by mouth twice a day CEFDI ODILIA 07450163838 No Longer Active Carlton Hu MD Active TESSALON PERLES 100 MG CAP 1 tablet by mouth 3 times daily a s needed for cough BENZONATATE 03609403144 No Longer Active Carlton bustamante MD Active CEFDINIR 300 MG CAPS by mouth twice a day CEFDI ODILIA 12373565122 No Longer Active Carlton Hu MD Active ZITHROMAX Z-REYNA 250 MG TABS 2 today, then 1 daily for 4 days 201 04/09/17 AZITHROMYCIN 10799465899 No Longer Active Hugo Restrepo MD Active PREMARIN 0.625 MG TABS TAKE 1 TAB BY MOUTH DAILY ESTROGENS CONJUGATED 43592835395 Active Carlton Hu MD Active LYRICA 75 MG CAPS TAKE 1 CAPSULE BY MOUTH TWICE DAILY PREGABALIN 76432321456 Active Carlton Hu MD Active TESSALON PERLES 100 MG CAP 1 tablet by mouth 3 times daily a s needed for cough TESSALON PERLES 100 MG CAP 915082 BENZONATATE I nactive PREDNISONE 20 MG TAB 1 po bid 3 days, then 1 po q day 3 days 201 05/03/07 PREDNISONE 20 MG TAB 392031 PREDNISONE Inactive LORTAB 7.5-500 MG/15ML ELIX 7.5 ml po q 4 hour prn cough LORTAB 7.5-500 MG/15ML ELIX HYDROCODONE-ACETAMINOPHEN Inacti ve ACETAMINOPHEN-CODEINE #3 300-30 MG TABS 1 PO Q 4-6 HR PRN PAIN 2 ACETAMINOPHEN-CODEINE #3 300-30 MG TABS 819253 ACETAMIN OPHEN-CODEINE Inactive CHERATUSSIN AC 100-10 MG/5ML SYRP take 1 tsp po q4-6 hours prn c ough CHERATUSSIN AC 100-10 MG/5ML SYRP 648465 GUAIFENESIN-CO DEINE Inactive ACETAMINOPHEN-CODEINE #3 300-30 MG TABS 1 tablet po q 4-6hrs prn pain ACETAMINOPHEN-CODEINE #3 300-30 MG TABS 956792 ACETAMIN OPHEN-CODEINE Inactive HYDROCODONE-ACETAMINOPHEN 5-325 MG TABS 1 po q 6hr PRN cough 201 05/09/16 HYDROCODONE-ACETAMINOPHEN 5-325 MG TABS 277425 HYDROCODONE-ACETAMINOPHEN Inactive AVELOX 400 MG TABS 1 tab by mouth daily A VELOX 400 MG TABS 757663 MOXIFLOXACIN HCL Inactive CHERATUSSIN AC 100-10 MG/5ML SYRP 1 tsp by mouth every 4 hours as needed for cough CHERATUSSIN AC 100-10 MG/5ML SYRP 825161 GUAIFENESIN-CODEINE Inactive TERBINAFINE HCL 250 MG TABS 1 qDay TERBINAFINE HCL 250 MG TABS 371307 TERBINAFINE HCL Inactive CHERATUSSIN AC 100-10 MG/5ML SYRP 1 tsp by mouth every 4 hours as needed for cough CHERATUSSIN AC 100-10 MG/5ML SYRP 872505 GUAIFENESIN-CODEINE Inactive ACETAMINOPHEN-CODEINE #3 300-30 MG TABS 1 PO Q 4-6 HRS PRN PAIN ACETAMINOPHEN-CODEINE #3 300-30 MG TABS 096085 ACETAMINOPHEN-CODEIN E Inactive CHERATUSSIN AC 100-10 MG/5ML SYRP 1 tsp by mouth every 4 hours as needed for cough CHERATUSSIN AC 100-10 MG/5ML SYRP 565078 GUAIFENESIN-CODEINE Inactive AUGMENTIN 875-125 MG TAB 1 tab by mouth twice daily with food 20 12/03/31 AUGMENTIN 875-125 MG TAB 076782 AMOXICILLIN-POT CLAVULA EFE Inactive CHERATUSSIN AC 100-10 MG/5ML SYRP take one tsp po Q 6hours prn c ough CHERATUSSIN AC 100-10 MG/5ML SYRP 891212 GUAIFENESIN-CO DEINE Inactive PROPRANOLOL HCL 60 MG TABS 1 PO Q D P ROPRANOLOL HCL 60 MG TABS 721108 PROPRANOLOL HCL Inactive TOPAMAX 50 MG TABS take 1 tab po BID for migraines. 12/07/10 TOPAMAX 50 MG TABS 099449 TOPIRAMATE Inactive TOPAMAX 25 MG TABS 1 qHS x 1 week, then 1 BID x 1 week, then 1 qAM and 2 qHS x 1 week, then 2 BID (migraine prevention) TOPAMAX 2 5 MG TABS 516773 TOPIRAMATE Inactive ZITHROMAX Z-REYNA 250 MG TABS 2 today, then 1 daily for 4 days 201 04/09/17 ZITHROMAX Z-REYNA 250 MG TABS 3682822 AZITHROMYCIN Inac tive CEFDINIR 300 MG CAPS by mouth twice a day CEFDINIR 300 MG CAPS 20020704 CEFDINIR Inactive CEFDINIR 300 MG CAPS by mouth twice a day CEFDINIR 300 MG CAPS 20020704 CEFDINIR Inactive CEFDINIR 300 MG CAPS by mouth twice a day CEFDINIR 300 MG CAPS 814788 CEFDINIR Inactive CEFDINIR 300 MG CAPS by mouth twice a day CEFDINIR 300 MG CAPS 20020704 CEFDINIR Inactive ZITHROMAX 250 MG TAB 2 po today, then 1 po q days 2-5 ZITHROMAX 250 MG TAB 2214250 AZITHROMYCIN Inactive CEFDINIR 300 MG CAPS by mouth twice a day CEFDINIR 300 MG CAPS 20020704 CEFDINIR Inactive PREDNISONE 20 MG TAB 2 tabs daily for 3 days, 1 t ab daily for 3 days, 1/2 tab daily for 2 days PREDNISONE 20 MG TAB 460518 PREDNISON E Inactive AVELOX 400 MG TABS 1 tab by mouth daily A VELOX 400 MG TABS 494409 MOXIFLOXACIN HCL Inactive AVELOX 400 MG TABS 1 tab by mouth daily A VELOX 400 MG TABS 967549 MOXIFLOXACIN HCL Inactive PREDNISONE 20 MG TAB Take 3 tabs daily for 3 days , 2 tabs daily for 3 days, 1 tab daily for 3 days, 1/2 tab daily for 3 days PREDNISONE 20 MG TAB 127758 PREDNISONE Inactive LEVAQUIN 500 MG TABS take one po QD LEVAQUIN 50 0 MG TABS 415914 LEVOFLOXACIN Inactive AZITHROMYCIN 250 MG TABS 2 po qd x 1 day, then 1 po qd x 4 days AZITHROMYCIN 250 MG TABS 6234696 AZITHROMYCIN Inactiv e MEDROL (REYNA) 4 MG TABS 6 tabs on day 1, 5 tabs on d ay 2, 4 tabs on day 3, 3 tabs on day 4, 2 tabs on day 5, 1 tab on day 6 MEDROL (REYNA) 4 MG TABS METHYLPREDNISOLONE Inactive CHERATUSSIN AC 100-10 MG/5ML SYRP 5ml po q6hr PRN Cough CHERATUSSIN AC 100-10 MG/5ML SYRP 690882 GUAIFENESIN-CODEINE Inacti ve TRIAMCINOLONE ACETONIDE 0.1 % CREA apply three times daily prn r beatrice TRIAMCINOLONE ACETONIDE 0.1 % CREA 6762797 TRIAMCINOLONE ACETONIDE Inactive Vital Signs Date Name [...] ... - Chemistry sodium, serum 143 mmol/L 656-524 0131/01/24 potassium, serum 4.1 mmol/L 3.5-5.2 chloride, serum [...] 0.60 mg/dL 0.00-1.00 cholesterol, serum 227 mg/dL 012-206 1152/01/24 triglyceride, serum, fasting 97 mg/dL 30-200 HDL [...] mg/dL Encounters Code Encounter Date Provider Facility CPT-27968 Level 3 Est. Patient 19:50:35 RIFFLER TENDER Carlton rich MD [facility] CPT-50062 Level 4 Est. Patient 18:05:01 RIFFLER TENDER Carlton rich MD [facility] CPT-10691 Level 3 Est. Patient 10:45:55 RIFFLER TENDER Hugo Restrepo MD [facility] CPT-32395 Level 3 Est. Patient 14:12:49 CDT Griffin HERNANDEZ [facility] CPT-88580 Level 3 Est. Patient 17:37:24 CDT Carlton rich MD [facility] CPT-03858 Level 3 Est. Patient 16:51:54 CDT Carlton rich MD [facility] CPT-92738 Level 3 Est. Patient 12:18:11 CDT Hugo Restrepo MD [facility] CPT-04874 Level 3 Est. Patient 11:30:25 CDT Marcy crisostomo MD PhD [facility] CPT-05359 Level 3 Est. Patient 12:00:47 RIFFLER TENDER Carlton rich MD [facility] CPT-95534 Level 3 Est. Patient 16:31:06 RIFFLER TENDER Carlton rich MD [facility] CPT-68518 Level 3 Est. Patient 16:23:24 RIFFLER TENDER Ridge tam [facility] CPT-15121 Level 3 Est. Patient 12:34:12 CDT Carlton rich MD [facility] CPT-33149 Level 2 Est. Patient 15:43:33 CDT Robi armstrong MD [facility] CPT-59036 Level 4 Est. Patient 14:04:44 CDT Carlton rich MD [facility] CPT-56412 Level 3 Est. Patient 05:47:59 CDT Ridge tam [facility] CPT-11937 Level 3 Est. Patient 13:12:53 RIFFLER TENDER Carlton rich MD [facility] CPT-00616 Level 3 Est. Patient 14:26:53 CDT Hugo Restrepo MD [facility] Procedures Code Procedure Name Date Entry Date Standard Desc ription CPT-43140 Abx/Therapy Injection 13:28:47 RIFFLER TENDER CPT-J2930 Solu Medrol 125 mg (Methyl Prednisolone Sodium Succinate) 12:00:47 RIFFLER TENDER CPT-77528 Venipuncture Draw Fee 11:33:31 CDT CPT-49457 EKG Trac and Interp 11:21:09 CDT CPT-46679 Chest 2V Frontal and Lat 11:21:09 CDT 12/15 CPT-17506 Venipuncture Draw Fee 08:02:34 CDT CPT-45630 Chest 2V Frontal and Lat 05:47:59 CDT 06/05
--- OUTSIDE RECORDS SUMMARY | 2019-10-08 10:22 | XMS REPORT | Clinical Summary ---
Author Author Caitlin, Juliana Martinez Organization [facility] Address Unknown Phone Unavailable Allergies, Adverse Reactions, Alerts Allergy Name Reaction Description Start Date Severity Status Pr ovider No Known Allergies Maryjonimorgan Schulz Conditions or Problems Problem Name Problem Code Onset Date Status Entry Date Provider Comment Standard Description Annotate BRONCHITIS 490 Inactive Hugo Retsrepo MD Bronchitis, not specified as acute or [...] BID prn had pain 2 CYCLOBENZAPRINE HCL [id number] Active Carlton Hu MD A ctive PROMETHAZINE-CODEINE 6.25-10 MG/5ML SYRP 1 tsp by mouth ever y 8 hours prn cough PROMETHAZINE-CODEINE 17573164165 No Longer Active Robert Hu MD Active MEDROL (REYNA) 4 MG TABS 6 pills x 1 day, then 5 pill s x 1 day then 4 pills x 1 day, then 3 pills x 1 day, then 2 pills x 1 day, then 1 pill x 1 day, then stop METHYLPREDNISOLONE 03905354495 No Longer Active Parris Mora MD Active AZITHROMYCIN 250 MG TABS 2 po qd x 1 day, then 1 po qd x 4 days AZITHROMYCIN 53454742551 No Longer Active Perez Mora MD Active SYMBICORT 160-4.5 MCG/ACT AERO 2 puffs bid with rinse after 2011 BUDESONIDE-FORMOTEROL FUMARATE 28666726937 No Longer Active Perez Mora MD Active LYRICA 75 MG CAPS TAKE 1 CAPSULE BY MOUTH TWICE DAILY 2013 PREGABALIN 79380899327 No Longer Active Carlton Hu MD Active LYRICA 100 MG CAPS Take 1 tab po BID for fibromyalgia PREGABALIN 68596702089 Active Carlton Hu MD Active TOPAMAX 25 MG TABS 1 qHS x 1 week, then 1 BID x 1 week, then 1 qAM and 2 qHS x 1 week, then 2 BID (migraine prevention) TOPIRAMAT E 53845745659 No Longer Active Jerica FUENTES Active TOPAMAX 50 MG TABS take 1 tab po BID for migraines. 12/07/10 TOPIRAMATE 88342457240 No Longer Active Jerica FUENTES Ac tive TOPAMAX 100 MG TABS Take 1 tablet po bid TOPIRAMATE 4999 3060880 Active Carlton Hu MD Active TRIAMCINOLONE ACETONIDE 0.1 % CREA apply three times daily prn r beatrice TRIAMCINOLONE ACETONIDE 47052513414 No Longer Active Carlton Hu MD Active PAXIL 40 MG TAB take 1 tab po qday for depression PAROXETINE HCL 21100094764 Active Carlton Hu MD Active CYMBALTA 30 MG CPEP 1 cap by mouth daily DULOXE SNEHA HCL 15368889706 Active Carlton Hu MD Active CHERATUSSIN AC 100-10 MG/5ML SYRP 5ml po q6hr PRN Cough GUAIFENESIN-CODEINE 13200144774 No Longer Active Carlton Hu MD Active MEDROL (REYNA) 4 MG TABS 6 tabs on day 1, 5 tabs on d ay 2, 4 tabs on day 3, 3 tabs on day 4, 2 tabs on day 5, 1 tab on day 6 METHYLPREDNISOLONE 51345565460 No Longer Active Perez Mora MD Active AZITHROMYCIN 250 MG TABS 2 po qd x 1 day, then 1 po qd x 4 days AZITHROMYCIN 44614352757 No Longer Active Perez Mora MD Active PROPRANOLOL HCL 60 MG TABS 1 PO Q D PROPRANOL OL HCL 61706179630 No Longer Active Perez Mora MD Active CHERATUSSIN AC 100-10 MG/5ML SYRP take one tsp po Q 6hours prn c ough GUAIFENESIN-CODEINE 68398687729 No Longer Active Perez Means Active AUGMENTIN 875-125 MG TAB 1 tab by mouth twice daily with food 20 12/03/31 AMOXICILLIN-POT CLAVULANATE 12731834114 No Longer Active Chanel Mora MD Active CHERATUSSIN AC 100-10 MG/5ML SYRP 1 tsp by mouth every 4 hours as needed for cough GUAIFENESIN-CODEINE 64551297362 No Longer Activ e Hugo Restrepo MD Active ACETAMINOPHEN-CODEINE #3 300-30 MG TABS 1 PO Q 4-6 HRS PRN PAIN ACETAMINOPHEN-CODEINE 35233957122 No Longer Active Hugo Restrepo MD Active LEVAQUIN 500 MG TABS take one po QD LEVOFLOXACI N 27615370841 No Longer Active Griffin HERNANDEZ Active PREDNISONE 20 MG TAB Take 3 tabs daily for 3 days , 2 tabs daily for 3 days, 1 tab daily for 3 days, 1/2 tab daily for 3 days P REDNISONE 69479644045 No Longer Active Carlton Hu MD Active AVELOX 400 MG TABS 1 tab by mouth daily MOXIFLO XACIN HCL 71354021362 No Longer Active Carlton Hu MD Active CHERATUSSIN AC 100-10 MG/5ML SYRP 1 tsp by mouth every 4 hours as needed for cough GUAIFENESIN-CODEINE 14003435284 No Longer Activ e Hugo Restrepo MD Active AVELOX 400 MG TABS 1 tab by mouth daily MOXIFLO XACIN HCL 45741886109 No Longer Active Marcy De La Rosa MD PhD Active TERBINAFINE HCL 250 MG TABS 1 qDay TERBINAF INE HCL 28586923887 No Longer Active Marcy De La Rosa MD PhD Active CHERATUSSIN AC 100-10 MG/5ML SYRP 1 tsp by mouth every 4 hours as needed for cough GUAIFENESIN-CODEINE 91573342227 No Longer Activ e Marcy De La Rosa MD PhD Active AVELOX 400 MG TABS 1 tab by mouth daily MOXIFLO XACIN HCL 06734241668 No Longer Active Marcy De La Rosa MD PhD Active HYDROCODONE-ACETAMINOPHEN 5-325 MG TABS 1 po q 6hr PRN cough 201 05/09/16 HYDROCODONE-ACETAMINOPHEN 18856186399 No Longer Active Marcy De La Rosa MD PhD Active PREDNISONE 20 MG TAB 2 tabs daily for 3 days, 1 t ab daily for 3 days, 1/2 tab daily for 2 days PREDNISONE 02359819111 No Longer Active Carlton Hu MD Active CEFDINIR 300 MG CAPS by mouth twice a day CEFDI ODILIA 09804105884 No Longer Active Carlton Hu MD Active ZOCOR 40 MG TAB 1 tab by mouth daily SIMVASTATIN 96696183729 Active Carlton Hu MD Active HYDROCHLOROTHIAZIDE 25 MG TABS 1 TAB PO DAILY H YDROCHLOROTHIAZIDE 56514179258 Active Carlton Hu MD Active ACETAMINOPHEN-CODEINE #3 300-30 MG TABS 1 tablet po q 4-6hrs prn pain ACETAMINOPHEN-CODEINE 33607663763 No Longer Active Ridge Bess DO Active ZITHROMAX 250 MG TAB 2 po today, then 1 po q days 2-5 AZITHROMYCIN 72237196769 No Longer Active Carlton Hu MD Acti ve CHERATUSSIN AC 100-10 MG/5ML SYRP take 1 tsp po q4-6 hours prn c ough GUAIFENESIN-CODEINE 85310741495 No Longer Active Carlton Hu MD Active ACETAMINOPHEN-CODEINE #3 300-30 MG TABS 1 PO Q 4-6 HR PRN PAIN 2 ACETAMINOPHEN-CODEINE 24384708461 No Longer Active Carlton rich MD Active LORTAB 7.5-500 MG/15ML ELIX 7.5 ml po q 4 hour prn cough HYDROCODONE-ACETAMINOPHEN 78487368845 No Longer Active Carlton Hu MD Active PREDNISONE 20 MG TAB 1 po bid 3 days, then 1 po q day 3 days 201 05/03/07 PREDNISONE 58143091542 No Longer Active Carlton Hu MD Active ELMIRON 100 MG CAPS 2 tablets in the am and 1 tablet at hs PENTOSAN POLYSULFATE SODIUM 30443778620 Active Gracie Magalia Active CEFDINIR 300 MG CAPS by mouth twice a day CEFDI ODILIA 28784522376 No Longer Active Carlton Hu MD Active CEFDINIR 300 MG CAPS by mouth twice a day CEFDI ODILIA 52386153408 No Longer Active Carlton Hu MD Active CEFDINIR 300 MG CAPS by mouth twice a day CEFDI ODILIA 50830187313 No Longer Active Carlton Hu MD Active TESSALON PERLES 100 MG CAP 1 tablet by mouth 3 times daily a s needed for cough BENZONATATE 53312788146 No Longer Active Carlton bustamante MD Active CEFDINIR 300 MG CAPS by mouth twice a day CEFDI ODILIA 81103156446 No Longer Active Carlton Hu MD Active ZITHROMAX Z-REYNA 250 MG TABS 2 today, then 1 daily for 4 days 201 04/09/17 AZITHROMYCIN 60109508717 No Longer Active Hugo Restrepo MD Active PREMARIN 0.625 MG TABS TAKE 1 TAB BY MOUTH DAILY ESTROGENS CONJUGATED 04455853504 Active Carlton Hu MD Active TESSALON PERLES 100 MG CAP 1 tablet by mouth 3 times daily a s needed for cough TESSALON PERLES 100 MG CAP 955120 BENZONATATE I nactive PREDNISONE 20 MG TAB 1 po bid 3 days, then 1 po q day 3 days 201 05/03/07 PREDNISONE 20 MG TAB 038415 PREDNISONE Inactive LORTAB 7.5-500 MG/15ML ELIX 7.5 ml po q 4 hour prn cough LORTAB 7.5-500 MG/15ML ELIX HYDROCODONE-ACETAMINOPHEN Inacti ve ACETAMINOPHEN-CODEINE #3 300-30 MG TABS 1 PO Q 4-6 HR PRN PAIN 2 ACETAMINOPHEN-CODEINE #3 300-30 MG TABS 226492 ACETAMIN OPHEN-CODEINE Inactive CHERATUSSIN AC 100-10 MG/5ML SYRP take 1 tsp po q4-6 hours prn c ough CHERATUSSIN AC 100-10 MG/5ML SYRP 284967 GUAIFENESIN-CO DEINE Inactive ACETAMINOPHEN-CODEINE #3 300-30 MG TABS 1 tablet po q 4-6hrs prn pain ACETAMINOPHEN-CODEINE #3 300-30 MG TABS 117268 ACETAMIN OPHEN-CODEINE Inactive HYDROCODONE-ACETAMINOPHEN 5-325 MG TABS 1 po q 6hr PRN cough 201 05/09/16 HYDROCODONE-ACETAMINOPHEN 5-325 MG TABS 984167 HYDROCODONE-ACETAMINOPHEN Inactive AVELOX 400 MG TABS 1 tab by mouth daily A VELOX 400 MG TABS 159486 MOXIFLOXACIN HCL Inactive CHERATUSSIN AC 100-10 MG/5ML SYRP 1 tsp by mouth every 4 hours as needed for cough CHERATUSSIN AC 100-10 MG/5ML SYRP 866947 GUAIFENESIN-CODEINE Inactive TERBINAFINE HCL 250 MG TABS 1 qDay TERBINAFINE HCL 250 MG TABS 632358 TERBINAFINE HCL Inactive CHERATUSSIN AC 100-10 MG/5ML SYRP 1 tsp by mouth every 4 hours as needed for cough CHERATUSSIN AC 100-10 MG/5ML SYRP 416905 GUAIFENESIN-CODEINE Inactive ACETAMINOPHEN-CODEINE #3 300-30 MG TABS 1 PO Q 4-6 HRS PRN PAIN ACETAMINOPHEN-CODEINE #3 300-30 MG TABS 777733 ACETAMINOPHEN-CODEIN E Inactive CHERATUSSIN AC 100-10 MG/5ML SYRP 1 tsp by mouth every 4 hours as needed for cough CHERATUSSIN AC 100-10 MG/5ML SYRP 294023 GUAIFENESIN-CODEINE Inactive AUGMENTIN 875-125 MG TAB 1 tab by mouth twice daily with food 20 12/03/31 AUGMENTIN 875-125 MG TAB 651541 AMOXICILLIN-POT CLAVULA EFE Inactive CHERATUSSIN AC 100-10 MG/5ML SYRP take one tsp po Q 6hours prn c ough CHERATUSSIN AC 100-10 MG/5ML SYRP 894334 GUAIFENESIN-CO DEINE Inactive PROPRANOLOL HCL 60 MG TABS 1 PO Q D P ROPRANOLOL HCL 60 MG TABS 346603 PROPRANOLOL HCL Inactive TOPAMAX 50 MG TABS take 1 tab po BID for migraines. 12/07/10 TOPAMAX 50 MG TABS 732475 TOPIRAMATE Inactive TOPAMAX 25 MG TABS 1 qHS x 1 week, then 1 BID x 1 week, then 1 qAM and 2 qHS x 1 week, then 2 BID (migraine prevention) TOPAMAX 2 5 MG TABS 277731 TOPIRAMATE Inactive LYRICA 75 MG CAPS TAKE 1 CAPSULE BY MOUTH TWICE DAILY LYRICA 75 MG CAPS PREGABALIN Inactive SYMBICORT 160-4.5 MCG/ACT AERO 2 puffs bid with rinse after 2011 SYMBICORT 160-4.5 MCG/ACT AERO BUDESONIDE-FORMOT SÁNCHEZ FUMARATE Inactive PROMETHAZINE-CODEINE 6.25-10 MG/5ML SYRP 1 tsp by mouth ever y 8 hours prn cough PROMETHAZINE-CODEINE 6.25-10 MG/5ML SYRP 131500 PROMETHAZINE-CODEINE Inactive ZITHROMAX Z-REYNA 250 MG TABS 2 today, then 1 daily for 4 days 201 04/09/17 ZITHROMAX Z-REYNA 250 MG TABS 4011898 AZITHROMYCIN Inac tive CEFDINIR 300 MG CAPS by mouth twice a day CEFDINIR 300 MG CAPS 20020704 CEFDINIR Inactive CEFDINIR 300 MG CAPS by mouth twice a day CEFDINIR 300 MG CAPS 824050 CEFDINIR Inactive CEFDINIR 300 MG CAPS by mouth twice a day CEFDINIR 300 MG CAPS 165030 CEFDINIR Inactive CEFDINIR 300 MG CAPS by mouth twice a day CEFDINIR 300 MG CAPS 551949 CEFDINIR Inactive ZITHROMAX 250 MG TAB 2 po today, then 1 po q days 2-5 ZITHROMAX 250 MG TAB 4262917 AZITHROMYCIN Inactive CEFDINIR 300 MG CAPS by mouth twice a day CEFDINIR 300 MG CAPS 20020704 CEFDINIR Inactive PREDNISONE 20 MG TAB 2 tabs daily for 3 days, 1 t ab daily for 3 days, 1/2 tab daily for 2 days PREDNISONE 20 MG TAB 272996 PREDNISON E Inactive AVELOX 400 MG TABS 1 tab by mouth daily A VELOX 400 MG TABS 733483 MOXIFLOXACIN HCL Inactive AVELOX 400 MG TABS 1 tab by mouth daily A VELOX 400 MG TABS 302507 MOXIFLOXACIN HCL Inactive PREDNISONE 20 MG TAB Take 3 tabs daily for 3 days , 2 tabs daily for 3 days, 1 tab daily for 3 days, 1/2 tab daily for 3 days PREDNISONE 20 MG TAB 767076 PREDNISONE Inactive LEVAQUIN 500 MG TABS take one po QD LEVAQUIN 50 0 MG TABS 817130 LEVOFLOXACIN Inactive AZITHROMYCIN 250 MG TABS 2 po qd x 1 day, then 1 po qd x 4 days AZITHROMYCIN 250 MG TABS 0289118 AZITHROMYCIN Inactiv e MEDROL (REYNA) 4 MG TABS 6 tabs on day 1, 5 tabs on d ay 2, 4 tabs on day 3, 3 tabs on day 4, 2 tabs on day 5, 1 tab on day 6 MEDROL (REYNA) 4 MG TABS METHYLPREDNISOLONE Inactive CHERATUSSIN AC 100-10 MG/5ML SYRP 5ml po q6hr PRN Cough CHERATUSSIN AC 100-10 MG/5ML SYRP 901127 GUAIFENESIN-CODEINE Inacti ve TRIAMCINOLONE ACETONIDE 0.1 % CREA apply three times daily prn r beatrice TRIAMCINOLONE ACETONIDE 0.1 % CREA 7723455 TRIAMCINOLONE ACETONIDE Inactive AZITHROMYCIN 250 MG TABS 2 po qd x 1 day, then 1 po qd x 4 days AZITHROMYCIN 250 MG TABS 9470927 AZITHROMYCIN Inactiv e MEDROL (REYNA) 4 MG [...] ... - Chemistry sodium, serum 143 mmol/L 537-665 8782/01/24 potassium, serum 4.1 mmol/L 3.5-5.2 chloride, serum [...] 0.60 mg/dL 0.00-1.00 cholesterol, serum 227 mg/dL 167-778 1723/01/24 triglyceride, serum, fasting 97 mg/dL 30-200 HDL [...] mg/dL Encounters Code Encounter Date Provider Facility CPT-76559 Level 3 Est. Patient 10:03:07 CDT Perez Mora MD [facility] CPT-03013 Level 3 Est. Patient 19:50:35 ETHOLOGIST Carlton rich MD [facility] CPT-50203 Level 4 Est. Patient 18:05:01 ETHOLOGIST Carlton rich MD [facility] CPT-37208 Level 3 Est. Patient 10:45:55 ETHOLOGIST Hugo Restrepo MD [facility]-48669 Level 3 Est. Patient 14:12:49 CDT Griffin HERNANDEZ [facility]-44912 Level 3 Est. Patient 17:37:24 CDT Carlton rich MD [facility]-31014 Level 3 Est. Patient 16:51:54 CDT Carlton rich MD [facility]-23214 Level 3 Est. Patient 12:18:11 CDT Hugo Restrepo MD [facility]-80354 Level 3 Est. Patient 11:30:25 CDT Marcy crisostomo MD PhD [facility]-67573 Level 3 Est. Patient 12:00:47 ETHOLOGIST Carlton rich MD [facility]-34851 Level 3 Est. Patient 16:31:06 ETHOLOGIST Carlton rich MD [facility]-96568 Level 3 Est. Patient 16:23:24 ETHOLOGIST Ridge tam [facility]-00083 Level 3 Est. Patient 12:34:12 CDT Carlton rich MD [facility]-27006 Level 2 Est. Patient 15:43:33 CDT Robi armstrong MD [facility]-37982 Level 4 Est. Patient 14:04:44 CDT Carlton rich MD [facility]-32870 Level 3 Est. Patient 05:47:59 CDT Ridge tam [facility]-69631 Level 3 Est. Patient 13:12:53 ETHOLOGIST Carlton rich MD [facility]-47680 Level 3 Est. Patient 14:26:53 CDT Hugo Restrepo MD [facility] Procedures Code Procedure Name Date Entry Date Standard Desc ription CPT-40991 Fluzone Quadrivalent Intramuscular Suspe nsion 0.5 ML 14:31:55 CDT CPT-97499 Abx/Therapy Injection 13:28:47 ETHOLOGIST CPT-J2930 Solu Medrol 125 mg (Methyl Prednisolone Sodium Succinate) 12:00:47 ETHOLOGIST CPT-27600 Venipuncture Draw Fee 11:33:31 CDT CPT-36016 EKG Trac and Interp 11:21:09 CDT CPT-33970 Chest 2V Frontal and Lat 11:21:09 CDT 12/15 CPT-99248 Venipuncture Draw Fee 08:02:34 CDT CPT-06027 Chest 2V Frontal and Lat 05:47:59 CDT 06/05
--- OUTSIDE RECORDS SUMMARY | 2019-10-08 10:22 | XMS REPORT | Clinical Summary ---
Author Author Caitlin, Juliana Martinez Organization [facility] Address Unknown Phone Unavailable Allergies, Adverse [...] BID prn had pain 2 CYCLOBENZAPRINE HCL [id number] Active Carlton Hu MD A ctive PROMETHAZINE-CODEINE 6.25-10 MG/5ML SYRP 1 tsp by mouth ever y 8 hours prn cough PROMETHAZINE-CODEINE [id number] No Longer Active Robert Hu MD Active MEDROL (REYNA) 4 MG TABS 6 pills x 1 day, then 5 pill s x 1 day then 4 pills x 1 day, then 3 pills x 1 day, then 2 pills x 1 day, then 1 pill x 1 day, then stop METHYLPREDNISOLONE 05402936835 No Longer Active Parris Mora MD Active AZITHROMYCIN 250 MG TABS 2 po qd x 1 day, then 1 po qd x 4 days AZITHROMYCIN 65890633623 No Longer Active Perez Mora MD Active SYMBICORT 160-4.5 MCG/ACT AERO 2 puffs bid with rinse after 2011 BUDESONIDE-FORMOTEROL FUMARATE [id number] No Longer Active Perez Mora MD Active LYRICA 75 MG CAPS TAKE 1 CAPSULE BY MOUTH TWICE DAILY 2013 PREGABALIN 79551606820 No Longer Active Carlton Hu MD Active LYRICA 100 MG CAPS Take 1 tab po BID for fibromyalgia PREGABALIN 28949464739 Active Carlton Hu MD Active TOPAMAX 25 MG TABS 1 qHS x 1 week, then 1 BID x 1 week, then 1 qAM and 2 qHS x 1 week, then 2 BID (migraine prevention) TOPIRAMAT E 36830167807 No Longer Active Jerica FUENTES Active TOPAMAX 50 MG TABS take 1 tab po BID for migraines. 12/07/10 TOPIRAMATE 28427158681 No Longer Active Jerica FUENTES Ac tive TOPAMAX 100 MG TABS Take 1 tablet po bid TOPIRAMATE 4999 1656972 Active Carlton Hu MD Active TRIAMCINOLONE ACETONIDE 0.1 % CREA apply three times daily prn r beatrice TRIAMCINOLONE ACETONIDE 55836113620 No Longer Active Carlton Hu MD Active PAXIL 40 MG TAB take 1 tab po qday for depression PAROXETINE HCL 49352287069 Active Carlton Hu MD Active CYMBALTA 30 MG CPEP 1 cap by mouth daily DULOXE SNEHA HCL 27410809311 Active Carlton Hu MD Active CHERATUSSIN AC 100-10 MG/5ML SYRP 5ml po q6hr PRN Cough GUAIFENESIN-CODEINE 94266641086 No Longer Active Carlton Hu MD Active MEDROL (REYNA) 4 MG TABS 6 tabs on day 1, 5 tabs on d ay 2, 4 tabs on day 3, 3 tabs on day 4, 2 tabs on day 5, 1 tab on day 6 METHYLPREDNISOLONE 90428098996 No Longer Active Perez Mora MD Active AZITHROMYCIN 250 MG TABS 2 po qd x 1 day, then 1 po qd x 4 days AZITHROMYCIN 03743574685 No Longer Active Perez Mora MD Active PROPRANOLOL HCL 60 MG TABS 1 PO Q D PROPRANOL OL HCL 30977915482 No Longer Active Perez Mora MD Active CHERATUSSIN AC 100-10 MG/5ML SYRP take one tsp po Q 6hours prn c ough GUAIFENESIN-CODEINE 85731600283 No Longer Active Perez Means Active AUGMENTIN 875-125 MG TAB 1 tab by mouth twice daily with food 20 12/03/31 AMOXICILLIN-POT CLAVULANATE 18812426539 No Longer Active Chanel Mora MD Active CHERATUSSIN AC 100-10 MG/5ML SYRP 1 tsp by mouth every 4 hours as needed for cough GUAIFENESIN-CODEINE 93796651156 No Longer Activ e Hugo Restrepo MD Active ACETAMINOPHEN-CODEINE #3 300-30 MG TABS 1 PO Q 4-6 HRS PRN PAIN ACETAMINOPHEN-CODEINE 87937905355 No Longer Active Hugo Restrepo MD Active LEVAQUIN 500 MG TABS take one po QD LEVOFLOXACI N 68067368862 No Longer Active Griffin HERNANDEZ Active PREDNISONE 20 MG TAB Take 3 tabs daily for 3 days , 2 tabs daily for 3 days, 1 tab daily for 3 days, 1/2 tab daily for 3 days P REDNISONE 77053175214 No Longer Active Carlton Hu MD Active AVELOX 400 MG TABS 1 tab by mouth daily MOXIFLO XACIN HCL 43150761595 No Longer Active Carlton Hu MD Active CHERATUSSIN AC 100-10 MG/5ML SYRP 1 tsp by mouth every 4 hours as needed for cough GUAIFENESIN-CODEINE 85704298859 No Longer Activ e Hugo Restrepo MD Active AVELOX 400 MG TABS 1 tab by mouth daily MOXIFLO XACIN HCL 66442832049 No Longer Active Marcy De La Rosa MD PhD Active TERBINAFINE HCL 250 MG TABS 1 qDay TERBINAF INE HCL 89086902534 No Longer Active Marcy De La Rosa MD PhD Active CHERATUSSIN AC 100-10 MG/5ML SYRP 1 tsp by mouth every 4 hours as needed for cough GUAIFENESIN-CODEINE 59371116334 No Longer Activ e Marcy De La Rosa MD PhD Active AVELOX 400 MG TABS 1 tab by mouth daily MOXIFLO XACIN HCL 56664003015 No Longer Active Marcy De La Rosa MD PhD Active HYDROCODONE-ACETAMINOPHEN 5-325 MG TABS 1 po q 6hr PRN cough 201 05/09/16 HYDROCODONE-ACETAMINOPHEN 90143637314 No Longer Active Marcy De La Rosa MD PhD Active PREDNISONE 20 MG TAB 2 tabs daily for 3 days, 1 t ab daily for 3 days, 1/2 tab daily for 2 days PREDNISONE 87680791449 No Longer Active Carlton Hu MD Active CEFDINIR 300 MG CAPS by mouth twice a day CEFDI ODILIA 26405310893 No Longer Active Carlton Hu MD Active ZOCOR 40 MG TAB 1 tab by mouth daily SIMVASTATIN 58047747870 Active Carlton Hu MD Active HYDROCHLOROTHIAZIDE 25 MG TABS 1 TAB PO DAILY H YDROCHLOROTHIAZIDE 60560050855 Active Carlton Hu MD Active ACETAMINOPHEN-CODEINE #3 300-30 MG TABS 1 tablet po q 4-6hrs prn pain ACETAMINOPHEN-CODEINE 27483478121 No Longer Active Ridge Bess DO Active ZITHROMAX 250 MG TAB 2 po today, then 1 po q days 2-5 AZITHROMYCIN 88936007039 No Longer Active Carlton Hu MD Acti ve CHERATUSSIN AC 100-10 MG/5ML SYRP take 1 tsp po q4-6 hours prn c ough GUAIFENESIN-CODEINE 14946023752 No Longer Active Carlton Hu MD Active ACETAMINOPHEN-CODEINE #3 300-30 MG TABS 1 PO Q 4-6 HR PRN PAIN 2 ACETAMINOPHEN-CODEINE 47779081073 No Longer Active Carlton rich MD Active LORTAB 7.5-500 MG/15ML ELIX 7.5 ml po q 4 hour prn cough HYDROCODONE-ACETAMINOPHEN 13611461888 No Longer Active Carlton Hu MD Active PREDNISONE 20 MG TAB 1 po bid 3 days, then 1 po q day 3 days 201 05/03/07 PREDNISONE 68658184875 No Longer Active Carlton Hu MD Active ELMIRON 100 MG CAPS 2 tablets in the am and 1 tablet at hs PENTOSAN POLYSULFATE SODIUM 68687855163 Active Gracie Hines Active CEFDINIR 300 MG CAPS by mouth twice a day CEFDI ODILIA 75492785740 No Longer Active Carlton Hu MD Active CEFDINIR 300 MG CAPS by mouth twice a day CEFDI ODILIA 95512269153 No Longer Active Carlton Hu MD Active CEFDINIR 300 MG CAPS by mouth twice a day CEFDI ODILIA 78905451929 No Longer Active Carlton Hu MD Active TESSALON PERLES 100 MG CAP 1 tablet by mouth 3 times daily a s needed for cough BENZONATATE 42415143589 No Longer Active Carlton bustamante MD Active CEFDINIR 300 MG CAPS by mouth twice a day CEFDI ODILIA 41984914440 No Longer Active Carlton Hu MD Active ZITHROMAX Z-REYNA 250 MG TABS 2 today, then 1 daily for 4 days 201 04/09/17 AZITHROMYCIN 15527176207 No Longer Active Hugo Restrepo MD Active PREMARIN 0.625 MG TABS TAKE 1 TAB BY MOUTH DAILY ESTROGENS CONJUGATED 43540586295 Active Carlton Hu MD Active TESSALON PERLES 100 MG CAP 1 tablet by mouth 3 times daily a s needed for cough TESSALON PERLES 100 MG CAP 257553 BENZONATATE I nactive PREDNISONE 20 MG TAB 1 po bid 3 days, then 1 po q day 3 days 201 05/03/07 PREDNISONE 20 MG TAB 339655 PREDNISONE Inactive LORTAB 7.5-500 MG/15ML ELIX 7.5 ml po q 4 hour prn cough LORTAB 7.5-500 MG/15ML ELIX HYDROCODONE-ACETAMINOPHEN Inacti ve ACETAMINOPHEN-CODEINE #3 300-30 MG TABS 1 PO Q 4-6 HR PRN PAIN 2 ACETAMINOPHEN-CODEINE #3 300-30 MG TABS 823745 ACETAMIN OPHEN-CODEINE Inactive CHERATUSSIN AC 100-10 MG/5ML SYRP take 1 tsp po q4-6 hours prn c ough CHERATUSSIN AC 100-10 MG/5ML SYRP 832176 GUAIFENESIN-CO DEINE Inactive ACETAMINOPHEN-CODEINE #3 300-30 MG TABS 1 tablet po q 4-6hrs prn pain ACETAMINOPHEN-CODEINE #3 300-30 MG TABS 718056 ACETAMIN OPHEN-CODEINE Inactive HYDROCODONE-ACETAMINOPHEN 5-325 MG TABS 1 po q 6hr PRN cough 201 05/09/16 HYDROCODONE-ACETAMINOPHEN 5-325 MG TABS 787476 HYDROCODONE-ACETAMINOPHEN Inactive AVELOX 400 MG TABS 1 tab by mouth daily A VELOX 400 MG TABS 356936 MOXIFLOXACIN HCL Inactive CHERATUSSIN AC 100-10 MG/5ML SYRP 1 tsp by mouth every 4 hours as needed for cough CHERATUSSIN AC 100-10 MG/5ML SYRP 107301 GUAIFENESIN-CODEINE Inactive TERBINAFINE HCL 250 MG TABS 1 qDay TERBINAFINE HCL 250 MG TABS 570050 TERBINAFINE HCL Inactive CHERATUSSIN AC 100-10 MG/5ML SYRP 1 tsp by mouth every 4 hours as needed for cough CHERATUSSIN AC 100-10 MG/5ML SYRP 784604 GUAIFENESIN-CODEINE Inactive ACETAMINOPHEN-CODEINE #3 300-30 MG TABS 1 PO Q 4-6 HRS PRN PAIN ACETAMINOPHEN-CODEINE #3 300-30 MG TABS 062869 ACETAMINOPHEN-CODEIN E Inactive CHERATUSSIN AC 100-10 MG/5ML SYRP 1 tsp by mouth every 4 hours as needed for cough CHERATUSSIN AC 100-10 MG/5ML SYRP 076904 GUAIFENESIN-CODEINE Inactive AUGMENTIN 875-125 MG TAB 1 tab by mouth twice daily with food 20 12/03/31 AUGMENTIN 875-125 MG TAB 496228 AMOXICILLIN-POT CLAVULA EFE Inactive CHERATUSSIN AC 100-10 MG/5ML SYRP take one tsp po Q 6hours prn c ough CHERATUSSIN AC 100-10 MG/5ML SYRP 007183 GUAIFENESIN-CO DEINE Inactive PROPRANOLOL HCL 60 MG TABS 1 PO Q D P ROPRANOLOL HCL 60 MG TABS 818513 PROPRANOLOL HCL Inactive TOPAMAX 50 MG TABS take 1 tab po BID for migraines. 12/07/10 TOPAMAX 50 MG TABS 176489 TOPIRAMATE Inactive TOPAMAX 25 MG TABS 1 qHS x 1 week, then 1 BID x 1 week, then 1 qAM and 2 qHS x 1 week, then 2 BID (migraine prevention) TOPAMAX 2 5 MG TABS 260241 TOPIRAMATE Inactive LYRICA 75 MG CAPS TAKE 1 CAPSULE BY MOUTH TWICE DAILY LYRICA 75 MG CAPS PREGABALIN Inactive SYMBICORT 160-4.5 MCG/ACT AERO 2 puffs bid with rinse after 2011 SYMBICORT 160-4.5 MCG/ACT AERO BUDESONIDE-FORMOT SÁNCHEZ FUMARATE Inactive PROMETHAZINE-CODEINE 6.25-10 MG/5ML SYRP 1 tsp by mouth ever y 8 hours prn cough PROMETHAZINE-CODEINE 6.25-10 MG/5ML SYRP 874081 PROMETHAZINE-CODEINE Inactive ZITHROMAX Z-REYNA 250 MG TABS 2 today, then 1 daily for 4 days 201 04/09/17 ZITHROMAX Z-REYNA 250 MG TABS 7000647 AZITHROMYCIN Inac tive CEFDINIR 300 MG CAPS by mouth twice a day CEFDINIR 300 MG CAPS 20020704 CEFDINIR Inactive CEFDINIR 300 MG CAPS by mouth twice a day CEFDINIR 300 MG CAPS 360462 CEFDINIR Inactive CEFDINIR 300 MG CAPS by mouth twice a day CEFDINIR 300 MG CAPS 457980 CEFDINIR Inactive CEFDINIR 300 MG CAPS by mouth twice a day CEFDINIR 300 MG CAPS 429215 CEFDINIR Inactive ZITHROMAX 250 MG TAB 2 po today, then 1 po q days 2-5 ZITHROMAX 250 MG TAB 2459698 AZITHROMYCIN Inactive CEFDINIR 300 MG CAPS by mouth twice a day CEFDINIR 300 MG CAPS 20020704 CEFDINIR Inactive PREDNISONE 20 MG TAB 2 tabs daily for 3 days, 1 t ab daily for 3 days, 1/2 tab daily for 2 days PREDNISONE 20 MG TAB 634943 PREDNISON E Inactive AVELOX 400 MG TABS 1 tab by mouth daily A VELOX 400 MG TABS 573005 MOXIFLOXACIN HCL Inactive AVELOX 400 MG TABS 1 tab by mouth daily A VELOX 400 MG TABS 268995 MOXIFLOXACIN HCL Inactive PREDNISONE 20 MG TAB Take 3 tabs daily for 3 days , 2 tabs daily for 3 days, 1 tab daily for 3 days, 1/2 tab daily for 3 days PREDNISONE 20 MG TAB 951971 PREDNISONE Inactive LEVAQUIN 500 MG TABS take one po QD LEVAQUIN 50 0 MG TABS 618248 LEVOFLOXACIN Inactive AZITHROMYCIN 250 MG TABS 2 po qd x 1 day, then 1 po qd x 4 days AZITHROMYCIN 250 MG TABS 0845105 AZITHROMYCIN Inactiv e MEDROL (REYNA) 4 MG TABS 6 tabs on day 1, 5 tabs on d ay 2, 4 tabs on day 3, 3 tabs on day 4, 2 tabs on day 5, 1 tab on day 6 MEDROL (REYNA) 4 MG TABS METHYLPREDNISOLONE Inactive CHERATUSSIN AC 100-10 MG/5ML SYRP 5ml po q6hr PRN Cough CHERATUSSIN AC 100-10 MG/5ML SYRP 038559 GUAIFENESIN-CODEINE Inacti ve TRIAMCINOLONE ACETONIDE 0.1 % CREA apply three times daily prn r beatrice TRIAMCINOLONE ACETONIDE 0.1 % CREA 4722491 TRIAMCINOLONE ACETONIDE Inactive AZITHROMYCIN 250 MG TABS 2 po qd x 1 day, then 1 po qd x 4 days AZITHROMYCIN 250 MG TABS 9906046 AZITHROMYCIN Inactiv e MEDROL (REYNA) 4 MG [...] ... - Chemistry sodium, serum 143 mmol/L 265-189 2961/01/24 potassium, serum 4.1 mmol/L 3.5-5.2 chloride, serum [...] 0.60 mg/dL 0.00-1.00 cholesterol, serum 227 mg/dL 387-177 0182/01/24 triglyceride, serum, fasting 97 mg/dL 30-200 HDL [...] mg/dL Encounters Code Encounter Date Provider Facility CPT-13859 Level 3 Est. Patient 10:03:07 CDT Perez Moar MD [facility] CPT-48586 Level 3 Est. Patient 19:50:35 [employer] Carlton rich MD [facility] CPT-95783 Level 4 Est. Patient 18:05:01 [employer] Carlton rich MD [facility] CPT-73066 Level 3 Est. Patient 10:45:55 [employer] Hugo Restrepo MD [facility] CPT-48118 Level 3 Est. Patient 14:12:49 CDT Griffin HERNANDEZ [facility] CPT-25542 Level 3 Est. Patient 17:37:24 CDT Carlton rich MD [facility] CPT-77008 Level 3 Est. Patient 16:51:54 CDT Carlton rich MD [facility] CPT-85260 Level 3 Est. Patient 12:18:11 CDT Hugo Restrepo MD [facility] CPT-77536 Level 3 Est. Patient 11:30:25 CDT Marcy crisostomo MD, PhD [facility] CPT-19053 Level 3 Est. Patient 12:00:47 [employer] Carlton rich MD [facility] CPT-85650 Level 3 Est. Patient 16:31:06 [employer] Carlton rich MD [facility] CPT-28061 Level 3 Est. Patient 16:23:24 [employer] Ridge tam DO [facility] CPT-21144 Level 3 Est. Patient 12:34:12 CDT Carlton rich MD [facility] CPT-69730 Level 2 Est. Patient 15:43:33 CDT Robi armstrong MD [facility] CPT-45626 Level 4 Est. Patient 14:04:44 CDT Carlton rich MD [facility] CPT-84581 Level 3 Est. Patient 05:47:59 CDT Ridge Jaun Celeste tam DO [facility] CPT-41587 Level 3 Est. Patient 13:12:53 [employer] Carlton rich MD [facility] CPT-18956 Level 3 Est. Patient 14:26:53 CDT Hugo Restrepo MD [facility] Procedures Code Procedure Name Date Entry Date Standard Desc ription CPT-07030 Fluzone Quadrivalent Intramuscular Suspe nsion 0.5 ML 14:31:55 CDT CPT-62153 Abx/Therapy Injection 13:28:47 [employer] CPT-J2930 Solu Medrol 125 mg (Methyl Prednisolone Sodium Succinate) 12:00:47 [employer] CPT-57634 Venipuncture Draw Fee 11:33:31 CDT CPT-26882 EKG Trac and Interp 11:21:09 CDT CPT-52325 Chest 2V Frontal and Lat 11:21:09 CDT 12/15 CPT-63039 Venipuncture Draw Fee 08:02:34 CDT CPT-36282 Chest 2V Frontal and Lat 05:47:59 CDT 06/05
--- OUTSIDE RECORDS SUMMARY | 2019-10-08 10:23 | XMS REPORT | Clinical Summary ---
Author Author Admin, Juliana Martinez Organization [facility] Address Unknown Phone Allergies, Adverse Reactions, Alerts [...] PhD Routine general medical examination at a [facility] care facility MAMMOGRAM, ABNORMAL 793.80 Active [...] disorder, not elsewhere classified Menopause 627.2 Active Cralton Hu MD Symptomatic menopausal or female climacteric states Headache, chronic 784.0 Active Carlton Hu MD Headache Dermatitis, atopic 691.8 Active Carlton beltrán MD Other atopic dermatitis and related conditions BRONCHITIS ICD-490 Inactive Huog Restrepo MD 201 04/09/17 MAXILLARY SINUSITIS ICD-473.0 Inactive Marcy De La Rosa MD PhD BRONCHITIS, ACUTE WITH MILD BRONCHOSPASM ICD-466.0 Inactive Marcy De La Rosa MD PhD DYSPNEA ICD-786.05 Inactive Marcy De La Rosa MD [facility] HEALTH SCREENING ICD-V70.0 Inactive Marcy ya MD [...] then 2 BID (migraine prevention) TOPIRAMAT E 26148821145 No Longer Active Jerica Osei RMTorin Active TOPAMAX 50 MG TABS take 1 tab po BID for migraines. 12/07/10 TOPIRAMATE 28802873339 No Longer Active Jerica Osei RMA Ac tive TOPAMAX 100 MG TABS Take 1 tablet po bid TOPIRAMATE 4999 2137059 Active Carlton Hu MD Active TRIAMCINOLONE ACETONIDE 0.1 % CREA apply three times daily prn r beatrice TRIAMCINOLONE ACETONIDE 45394343639 No Longer Active Carlton Hu MD Active PAXIL 40 MG TAB take 1 tab po qday for depression PAROXETINE HCL 50756193901 Active Carlton Hu MD Active CYMBALTA 30 MG CPEP 1 cap by mouth daily DULOXE SNEHA HCL 08064762271 Active Carlton Hu MD Active CHERATUSSIN AC 100-10 MG/5ML SYRP 5ml po q6hr PRN Cough GUAIFENESIN-CODEINE 45028709755 No Longer Active Carlton Hu MD Active MEDROL (REYNA) 4 MG TABS 6 tabs on day 1, 5 tabs on d ay 2, 4 tabs on day 3, 3 tabs on day 4, 2 tabs on day 5, 1 tab on day 6 METHYLPREDNISOLONE 82301839747 No Longer Active Perez Mora MD Active AZITHROMYCIN 250 MG TABS 2 po qd x 1 day, then 1 po qd x 4 days AZITHROMYCIN 36471192823 No Longer Active Perez Mora MD Active PROPRANOLOL HCL 60 MG TABS 1 PO Q D PROPRANOL OL HCL 96048018171 No Longer Active Perez Mora MD Active CHERATUSSIN AC 100-10 MG/5ML SYRP take one tsp po Q 6hours prn c ough GUAIFENESIN-CODEINE 16326952549 No Longer Active Perez Means Active AUGMENTIN 875-125 MG TAB 1 tab by mouth twice daily with food 20 12/03/31 AMOXICILLIN-POT CLAVULANATE 53197221175 No Longer Active Chanel Mora MD Active CHERATUSSIN AC 100-10 MG/5ML SYRP 1 tsp by mouth every 4 hours as needed for cough GUAIFENESIN-CODEINE 11134891089 No Longer Activ e Hugo Restrepo MD Active ACETAMINOPHEN-CODEINE #3 300-30 MG TABS 1 PO Q 4-6 HRS PRN PAIN ACETAMINOPHEN-CODEINE 09577124017 No Longer Active Hugo Restrepo MD Active LEVAQUIN 500 MG TABS take one po QD LEVOFLOXACI N 46476809591 No Longer Active Griffin HERNANDEZ Active PREDNISONE 20 MG TAB Take 3 tabs daily for 3 days , 2 tabs daily for 3 days, 1 tab daily for 3 days, 1/2 tab daily for 3 days P REDNISONE 78169164964 No Longer Active Carlton Hu MD Active AVELOX 400 MG TABS 1 tab by mouth daily MOXIFLO XACIN HCL 40708270679 No Longer Active Carlton Hu MD Active CHERATUSSIN AC 100-10 MG/5ML SYRP 1 tsp by mouth every 4 hours as needed for cough GUAIFENESIN-CODEINE 42580672206 No Longer Activ e Hugo Restrepo MD Active AVELOX 400 MG TABS 1 tab by mouth daily MOXIFLO XACIN HCL 32250811727 No Longer Active Marcy De La Rosa MD PhD Active TERBINAFINE HCL 250 MG TABS 1 qDay TERBINAF INE HCL 40629793212 No Longer Active Marcy De La Rosa MD PhD Active CHERATUSSIN AC 100-10 MG/5ML SYRP 1 tsp by mouth every 4 hours as needed for cough GUAIFENESIN-CODEINE 30878419448 No Longer Activ e Marcy De La Rosa MD PhD Active AVELOX 400 MG TABS 1 tab by mouth daily MOXIFLO XACIN HCL 60565676845 No Longer Active Marcy De La Rosa MD PhD Active HYDROCODONE-ACETAMINOPHEN 5-325 MG TABS 1 po q 6hr PRN cough 201 05/09/16 HYDROCODONE-ACETAMINOPHEN 01926662038 No Longer Active Marcy De La Rosa MD PhD Active PREDNISONE 20 MG TAB 2 tabs daily for 3 days, 1 t ab daily for 3 days, 1/2 tab daily for 2 days PREDNISONE 53322857021 No Longer Active Carlton Hu MD Active CEFDINIR 300 MG CAPS by mouth twice a day CEFDI ODILIA 24784886084 No Longer Active Carlton Hu MD Active ZOCOR 40 MG TAB 1 tab by mouth daily SIMVASTATIN 28406713872 Active Carlton Hu MD Active HYDROCHLOROTHIAZIDE 25 MG TABS 1 TAB PO DAILY H YDROCHLOROTHIAZIDE 69227748098 Active Carlton Hu MD Active ACETAMINOPHEN-CODEINE #3 300-30 MG TABS 1 tablet po q 4-6hrs prn pain ACETAMINOPHEN-CODEINE 50477132686 No Longer Active Ridge Bess DO Active ZITHROMAX 250 MG TAB 2 po today, then 1 po q days 2-5 AZITHROMYCIN 31712794896 No Longer Active Carlton Hu MD Acti ve CHERATUSSIN AC 100-10 MG/5ML SYRP take 1 tsp po q4-6 hours prn c ough GUAIFENESIN-CODEINE 95835657955 No Longer Active Carlton Hu MD Active ACETAMINOPHEN-CODEINE #3 300-30 MG TABS 1 PO Q 4-6 HR PRN PAIN 2 ACETAMINOPHEN-CODEINE 20086348307 No Longer Active Carlton rich MD Active LORTAB 7.5-500 MG/15ML ELIX 7.5 ml po q 4 hour prn cough HYDROCODONE-ACETAMINOPHEN 72953799367 No Longer Active Carlton Hu MD Active PREDNISONE 20 MG TAB 1 po bid 3 days, then 1 po q day 3 days 201 05/03/07 PREDNISONE 12154593461 No Longer Active Carlton Hu MD Active SYMBICORT 160-4.5 MCG/ACT AERO 2 puffs bid with rinse after BUDESONIDE-FORMOTEROL FUMARATE 81789322846 Active Carlton Hu MD Active ELMIRON 100 MG CAPS 2 tablets in the am and 1 tablet at hs PENTOSAN POLYSULFATE SODIUM 88339991709 Active Gracie Boerne Active CEFDINIR 300 MG CAPS by mouth twice a day CEFDI ODILIA 71021460065 No Longer Active Carlton Hu MD Active CEFDINIR 300 MG CAPS by mouth twice a day CEFDI ODILIA 96642615327 No Longer Active Carlton Hu MD Active CEFDINIR 300 MG CAPS by mouth twice a day CEFDI ODILIA 45220206016 No Longer Active Carlton Hu MD Active TESSALON PERLES 100 MG CAP 1 tablet by mouth 3 times daily a s needed for cough BENZONATATE 77683101070 No Longer Active Carlton bustamante MD Active CEFDINIR 300 MG CAPS by mouth twice a day CEFDI ODILIA 08803242234 No Longer Active Carlton Hu MD Active ZITHROMAX Z-REYNA 250 MG TABS 2 today, then 1 daily for 4 days 201 04/09/17 AZITHROMYCIN 32332005949 No Longer Active Hugo Restrepo MD Active PREMARIN 0.625 MG TABS TAKE 1 TAB BY MOUTH DAILY ESTROGENS CONJUGATED 98935715820 Active Carlton Hu MD Active LYRICA 75 MG CAPS TAKE 1 CAPSULE BY MOUTH TWICE DAILY PREGABALIN 04719966502 Active Carlton Hu MD Active TESSALON PERLES 100 MG CAP 1 tablet by mouth 3 times daily a s needed for cough TESSALON PERLES 100 MG CAP 831742 BENZONATATE I nactive PREDNISONE 20 MG TAB 1 po bid 3 days, then 1 po q day 3 days 201 05/03/07 PREDNISONE 20 MG TAB 912678 PREDNISONE Inactive LORTAB 7.5-500 MG/15ML ELIX 7.5 ml po q 4 hour prn cough LORTAB 7.5-500 MG/15ML ELIX HYDROCODONE-ACETAMINOPHEN Inacti ve ACETAMINOPHEN-CODEINE #3 300-30 MG TABS 1 PO Q 4-6 HR PRN PAIN 2 ACETAMINOPHEN-CODEINE #3 300-30 MG TABS 426224 ACETAMIN OPHEN-CODEINE Inactive CHERATUSSIN AC 100-10 MG/5ML SYRP take 1 tsp po q4-6 hours prn c ough CHERATUSSIN AC 100-10 MG/5ML SYRP 505269 GUAIFENESIN-CO DEINE Inactive ACETAMINOPHEN-CODEINE #3 300-30 MG TABS 1 tablet po q 4-6hrs prn pain ACETAMINOPHEN-CODEINE #3 300-30 MG TABS 522720 ACETAMIN OPHEN-CODEINE Inactive HYDROCODONE-ACETAMINOPHEN 5-325 MG TABS 1 po q 6hr PRN cough 201 05/09/16 HYDROCODONE-ACETAMINOPHEN 5-325 MG TABS 550831 HYDROCODONE-ACETAMINOPHEN Inactive AVELOX 400 MG TABS 1 tab by mouth daily A VELOX 400 MG TABS 751163 MOXIFLOXACIN HCL Inactive CHERATUSSIN AC 100-10 MG/5ML SYRP 1 tsp by mouth every 4 hours as needed for cough CHERATUSSIN AC 100-10 MG/5ML SYRP 444945 GUAIFENESIN-CODEINE Inactive TERBINAFINE HCL 250 MG TABS 1 qDay TERBINAFINE HCL 250 MG TABS 156401 TERBINAFINE HCL Inactive CHERATUSSIN AC 100-10 MG/5ML SYRP 1 tsp by mouth every 4 hours as needed for cough CHERATUSSIN AC 100-10 MG/5ML SYRP 093345 GUAIFENESIN-CODEINE Inactive ACETAMINOPHEN-CODEINE #3 300-30 MG TABS 1 PO Q 4-6 HRS PRN PAIN ACETAMINOPHEN-CODEINE #3 300-30 MG TABS 722331 ACETAMINOPHEN-CODEIN E Inactive CHERATUSSIN AC 100-10 MG/5ML SYRP 1 tsp by mouth every 4 hours as needed for cough CHERATUSSIN AC 100-10 MG/5ML SYRP 140531 GUAIFENESIN-CODEINE Inactive AUGMENTIN 875-125 MG TAB 1 tab by mouth twice daily with food 20 12/03/31 AUGMENTIN 875-125 MG TAB 520302 AMOXICILLIN-POT CLAVULA EFE Inactive CHERATUSSIN AC 100-10 MG/5ML SYRP take one tsp po Q 6hours prn c ough CHERATUSSIN AC 100-10 MG/5ML SYRP 269553 GUAIFENESIN-CO DEINE Inactive PROPRANOLOL HCL 60 MG TABS 1 PO Q D P ROPRANOLOL HCL 60 MG TABS 743117 PROPRANOLOL HCL Inactive TOPAMAX 50 MG TABS take 1 tab po BID for migraines. 12/07/10 TOPAMAX 50 MG TABS 715237 TOPIRAMATE Inactive TOPAMAX 25 MG TABS 1 qHS x 1 week, then 1 BID x 1 week, then 1 qAM and 2 qHS x 1 week, then 2 BID (migraine prevention) TOPAMAX 2 5 MG TABS 827674 TOPIRAMATE Inactive ZITHROMAX Z-REYNA 250 MG TABS 2 today, then 1 daily for 4 days 201 04/09/17 ZITHROMAX Z-REYNA 250 MG TABS 7056380 AZITHROMYCIN Inac tive CEFDINIR 300 MG CAPS by mouth twice a day CEFDINIR 300 MG CAPS 20020704 CEFDINIR Inactive CEFDINIR 300 MG CAPS by mouth twice a day CEFDINIR 300 MG CAPS 20020704 CEFDINIR Inactive CEFDINIR 300 MG CAPS by mouth twice a day CEFDINIR 300 MG CAPS 465094 CEFDINIR Inactive CEFDINIR 300 MG CAPS by mouth twice a day CEFDINIR 300 MG CAPS 20020704 CEFDINIR Inactive ZITHROMAX 250 MG TAB 2 po today, then 1 po q days 2-5 ZITHROMAX 250 MG TAB 3361831 AZITHROMYCIN Inactive CEFDINIR 300 MG CAPS by mouth twice a day CEFDINIR 300 MG CAPS 20020704 CEFDINIR Inactive PREDNISONE 20 MG TAB 2 tabs daily for 3 days, 1 t ab daily for 3 days, 1/2 tab daily for 2 days PREDNISONE 20 MG TAB 087352 PREDNISON E Inactive AVELOX 400 MG TABS 1 tab by mouth daily A VELOX 400 MG TABS 683495 MOXIFLOXACIN HCL Inactive AVELOX 400 MG TABS 1 tab by mouth daily A VELOX 400 MG TABS 086572 MOXIFLOXACIN HCL Inactive PREDNISONE 20 MG TAB Take 3 tabs daily for 3 days , 2 tabs daily for 3 days, 1 tab daily for 3 days, 1/2 tab daily for 3 days PREDNISONE 20 MG TAB 812562 PREDNISONE Inactive LEVAQUIN 500 MG TABS take one po QD LEVAQUIN 50 0 MG TABS 425346 LEVOFLOXACIN Inactive AZITHROMYCIN 250 MG TABS 2 po qd x 1 day, then 1 po qd x 4 days AZITHROMYCIN 250 MG TABS 1119575 AZITHROMYCIN Inactiv e MEDROL (REYNA) 4 MG TABS 6 tabs on day 1, 5 tabs on d ay 2, 4 tabs on day 3, 3 tabs on day 4, 2 tabs on day 5, 1 tab on day 6 MEDROL (REYNA) 4 MG TABS METHYLPREDNISOLONE Inactive CHERATUSSIN AC 100-10 MG/5ML SYRP 5ml po q6hr PRN Cough CHERATUSSIN AC 100-10 MG/5ML SYRP 392954 GUAIFENESIN-CODEINE Inacti ve TRIAMCINOLONE ACETONIDE 0.1 % CREA apply three times daily prn r beatrice TRIAMCINOLONE ACETONIDE 0.1 % CREA 8959396 TRIAMCINOLONE ACETONIDE Inactive Vital Signs Date Name [...] ... - Chemistry sodium, serum 143 mmol/L 192-713 9720/01/24 potassium, serum 4.1 mmol/L 3.5-5.2 chloride, serum [...] 0.60 mg/dL 0.00-1.00 cholesterol, serum 227 mg/dL 007-183 1695/01/24 triglyceride, serum, fasting 97 mg/dL 30-200 HDL [...] mg/dL Encounters Code Encounter Date Provider Facility CPT-20161 Level 3 Est. Patient 19:50:35 BED WORKER Carlton rich MD [facility] CPT-10373 Level 4 Est. Patient 18:05:01 BED WORKER Carlton rich MD [facility] CPT-37013 Level 3 Est. Patient 10:45:55 BED WORKER Hugo Restrepo MD [facility] CPT-54509 Level 3 Est. Patient 14:12:49 CDT Griffin HERNANDEZ [facility] CPT-88611 Level 3 Est. Patient 17:37:24 CDT Carlton rich MD [facility] CPT-96650 Level 3 Est. Patient 16:51:54 CDT Carlton rich MD [facility] CPT-68615 Level 3 Est. Patient 12:18:11 CDT Hugo Restrepo MD [facility] CPT-06929 Level 3 Est. Patient 11:30:25 CDT Marcy crisostomo MD PhD [facility] CPT-13819 Level 3 Est. Patient 12:00:47 BED WORKER Carlton rich MD [facility] CPT-75532 Level 3 Est. Patient 16:31:06 BED WORKER Carlton rich MD [facility] CPT-54663 Level 3 Est. Patient 16:23:24 BED WORKER Ridge tam [facility] CPT-37416 Level 3 Est. Patient 12:34:12 CDT Carlton rich MD [facility] CPT-16586 Level 2 Est. Patient 15:43:33 CDT Robi armstrong MD [facility] CPT-70312 Level 4 Est. Patient 14:04:44 CDT Carlton rich MD [facility] CPT-43082 Level 3 Est. Patient 05:47:59 CDT Ridge tam [facility] CPT-81694 Level 3 Est. Patient 13:12:53 BED WORKER Carlton rich MD [facility] CPT-20914 Level 3 Est. Patient 14:26:53 CDT Hugo Restrepo MD [facility] Procedures Code Procedure Name Date Entry Date Standard Desc ription CPT-88016 Abx/Therapy Injection 13:28:47 BED WORKER CPT-J2930 Solu Medrol 125 mg (Methyl Prednisolone Sodium Succinate) 12:00:47 BED WORKER CPT-09677 Venipuncture Draw Fee 11:33:31 CDT CPT-44961 EKG Trac and Interp 11:21:09 CDT CPT-24836 Chest 2V Frontal and Lat 11:21:09 CDT 12/15 CPT-91492 Venipuncture Draw Fee 08:02:34 CDT CPT-43008 Chest 2V Frontal and Lat 05:47:59 CDT 06/05
--- OUTSIDE RECORDS SUMMARY | 2019-10-08 10:23 | XMS REPORT | Clinical Summary ---
[...] Generic Name NDC Status Provider Patient Instruction LYRICA 75 MG CAPS TAKE 1 CAPSULE BY MOUTH TWICE DAILY 2013 PREGABALIN [id number] No Longer Active Carlton Hu MD Active LYRICA 100 MG CAPS Take 1 tab po BID for fibromyalgia PREGABALIN 03581504520 Active Carlton Hu MD Active TOPAMAX 25 MG TABS 1 qHS x 1 week, then 1 BID x 1 week, then 1 qAM and 2 qHS x 1 week, then 2 BID (migraine prevention) TOPIRAMAT E [id number] No Longer Active Jerica FUENTES Active TOPAMAX 50 MG TABS take 1 tab po BID for migraines. 12/07/10 TOPIRAMATE 88482673517 No Longer Active Jericacatrachita AGUILARA Ac tive TOPAMAX 100 MG TABS Take 1 tablet po bid TOPIRAMATE 4999 0561910 Active Carlton Hu MD Active TRIAMCINOLONE ACETONIDE 0.1 % CREA apply three times daily prn r beatrice TRIAMCINOLONE ACETONIDE 60524744331 No Longer Active Carlton Hu MD Active PAXIL 40 MG TAB take 1 tab po qday for depression PAROXETINE HCL 54630815346 Active Carlton Hu MD Active CYMBALTA 30 MG CPEP 1 cap by mouth daily DULOXE SNEHA HCL 34070725502 Active Carlton Hu MD Active CHERATUSSIN AC 100-10 MG/5ML SYRP 5ml po q6hr PRN Cough GUAIFENESIN-CODEINE 07803109552 No Longer Active Carlton Hu MD Active MEDROL (REYNA) 4 MG TABS 6 tabs on day 1, 5 tabs on d ay 2, 4 tabs on day 3, 3 tabs on day 4, 2 tabs on day 5, 1 tab on day 6 METHYLPREDNISOLONE 07995669869 No Longer Active Perez Mora MD Active AZITHROMYCIN 250 MG TABS 2 po qd x 1 day, then 1 po qd x 4 days AZITHROMYCIN 37960831131 No Longer Active Perez Mora MD Active PROPRANOLOL HCL 60 MG TABS 1 PO Q D PROPRANOL OL HCL 44774866678 No Longer Active Perez Mora MD Active CHERATUSSIN AC 100-10 MG/5ML SYRP take one tsp po Q 6hours prn c ough GUAIFENESIN-CODEINE 99799246638 No Longer Active Perez Means Active AUGMENTIN 875-125 MG TAB 1 tab by mouth twice daily with food 20 12/03/31 AMOXICILLIN-POT CLAVULANATE 92425621708 No Longer Active Chanel Mora MD Active CHERATUSSIN AC 100-10 MG/5ML SYRP 1 tsp by mouth every 4 hours as needed for cough GUAIFENESIN-CODEINE 26995464666 No Longer Activ e Hugo Restrepo MD Active ACETAMINOPHEN-CODEINE #3 300-30 MG TABS 1 PO Q 4-6 HRS PRN PAIN ACETAMINOPHEN-CODEINE 60108875060 No Longer Active Hugo Restrepo MD Active LEVAQUIN 500 MG TABS take one po QD LEVOFLOXACI N 74107125075 No Longer Active Demie Ahlquist PA Active PREDNISONE 20 MG TAB Take 3 tabs daily for 3 days , 2 tabs daily for 3 days, 1 tab daily for 3 days, 1/2 tab daily for 3 days P REDNISONE 57133024362 No Longer Active Carlton Hu MD Active AVELOX 400 MG TABS 1 tab by mouth daily MOXIFLO XACIN HCL 77481841336 No Longer Active Carlton Hu MD Active CHERATUSSIN AC 100-10 MG/5ML SYRP 1 tsp by mouth every 4 hours as needed for cough GUAIFENESIN-CODEINE 15702066450 No Longer Activ e Hugo Restrepo MD Active AVELOX 400 MG TABS 1 tab by mouth daily MOXIFLO XACIN HCL 43856600281 No Longer Active Marcy De La Rosa MD PhD Active TERBINAFINE HCL 250 MG TABS 1 qDay TERBINAF INE HCL 20627236600 No Longer Active Marcy De La Rosa MD PhD Active CHERATUSSIN AC 100-10 MG/5ML SYRP 1 tsp by mouth every 4 hours as needed for cough GUAIFENESIN-CODEINE 60385160769 No Longer Activ e Marcy De La Rosa MD PhD Active AVELOX 400 MG TABS 1 tab by mouth daily MOXIFLO XACIN HCL 16928643712 No Longer Active Marcy De La Rosa MD PhD Active HYDROCODONE-ACETAMINOPHEN 5-325 MG TABS 1 po q 6hr PRN cough 201 05/09/16 HYDROCODONE-ACETAMINOPHEN 06748793931 No Longer Active Marcy De La Rosa MD PhD Active PREDNISONE 20 MG TAB 2 tabs daily for 3 days, 1 t ab daily for 3 days, 1/2 tab daily for 2 days PREDNISONE 51565044345 No Longer Active Carlton Hu MD Active CEFDINIR 300 MG CAPS by mouth twice a day CEFDI ODILIA 76603130031 No Longer Active Carlton Hu MD Active ZOCOR 40 MG TAB 1 tab by mouth daily SIMVASTATIN 80099456181 Active Carlton Hu MD Active HYDROCHLOROTHIAZIDE 25 MG TABS 1 TAB PO DAILY H YDROCHLOROTHIAZIDE 89325884506 Active Carlton Hu MD Active ACETAMINOPHEN-CODEINE #3 300-30 MG TABS 1 tablet po q 4-6hrs prn pain ACETAMINOPHEN-CODEINE 11082652599 No Longer Active Ridge Bess DO Active ZITHROMAX 250 MG TAB 2 po today, then 1 po q days 2-5 AZITHROMYCIN 96101113593 No Longer Active Carlton Hu MD Acti ve CHERATUSSIN AC 100-10 MG/5ML SYRP take 1 tsp po q4-6 hours prn c ough GUAIFENESIN-CODEINE 93580189194 No Longer Active Carlton Hu MD Active ACETAMINOPHEN-CODEINE #3 300-30 MG TABS 1 PO Q 4-6 HR PRN PAIN 2 ACETAMINOPHEN-CODEINE 94274440346 No Longer Active Carlton rich MD Active LORTAB 7.5-500 MG/15ML ELIX 7.5 ml po q 4 hour prn cough HYDROCODONE-ACETAMINOPHEN 77930045236 No Longer Active Carlton Hu MD Active PREDNISONE 20 MG TAB 1 po bid 3 days, then 1 po q day 3 days 201 05/03/07 PREDNISONE 03010302464 No Longer Active Carlton Hu MD Active SYMBICORT 160-4.5 MCG/ACT AERO 2 puffs bid with rinse after BUDESONIDE-FORMOTEROL FUMARATE 18127410998 Active Carlton Hu MD Active ELMIRON 100 MG CAPS 2 tablets in the am and 1 tablet at hs PENTOSAN POLYSULFATE SODIUM 82639108328 Active Gracie [place] Active CEFDINIR 300 MG CAPS by mouth twice a day CEFDI ODILIA 03772173920 No Longer Active Carlton Hu MD Active CEFDINIR 300 MG CAPS by mouth twice a day CEFDI ODILIA 95003764004 No Longer Active Carlton Hu MD Active CEFDINIR 300 MG CAPS by mouth twice a day CEFDI ODILIA 88820928914 No Longer Active Carlton Hu MD Active TESSALON PERLES 100 MG CAP 1 tablet by mouth 3 times daily a s needed for cough BENZONATATE 01454809983 No Longer Active Carlton bustamante MD Active CEFDINIR 300 MG CAPS by mouth twice a day CEFDI ODILIA 41500736812 No Longer Active Carlton Hu MD Active ZITHROMAX Z-REYNA 250 MG TABS 2 today, then 1 daily for 4 days 201 04/09/17 AZITHROMYCIN 86888787827 No Longer Active Hugo Restrepo MD Active PREMARIN 0.625 MG TABS TAKE 1 TAB BY MOUTH DAILY ESTROGENS CONJUGATED 26721842360 Active Carlotn Hu MD Active TESSALON PERLES 100 MG CAP 1 tablet by mouth 3 times daily a s needed for cough TESSALON PERLES 100 MG CAP 018559 BENZONATATE I nactive PREDNISONE 20 MG TAB 1 po bid 3 days, then 1 po q day 3 days 201 05/03/07 PREDNISONE 20 MG TAB 778014 PREDNISONE Inactive LORTAB 7.5-500 MG/15ML ELIX 7.5 ml po q 4 hour prn cough LORTAB 7.5-500 MG/15ML ELIX HYDROCODONE-ACETAMINOPHEN Inacti ve ACETAMINOPHEN-CODEINE #3 300-30 MG TABS 1 PO Q 4-6 HR PRN PAIN 2 ACETAMINOPHEN-CODEINE #3 300-30 MG TABS 481960 ACETAMIN OPHEN-CODEINE Inactive CHERATUSSIN AC 100-10 MG/5ML SYRP take 1 tsp po q4-6 hours prn c ough CHERATUSSIN AC 100-10 MG/5ML SYRP 587574 GUAIFENESIN-CO DEINE Inactive ACETAMINOPHEN-CODEINE #3 300-30 MG TABS 1 tablet po q 4-6hrs prn pain ACETAMINOPHEN-CODEINE #3 300-30 MG TABS 388532 ACETAMIN OPHEN-CODEINE Inactive HYDROCODONE-ACETAMINOPHEN 5-325 MG TABS 1 po q 6hr PRN cough 201 05/09/16 HYDROCODONE-ACETAMINOPHEN 5-325 MG TABS 285752 HYDROCODONE-ACETAMINOPHEN Inactive AVELOX 400 MG TABS 1 tab by mouth daily A VELOX 400 MG TABS 818112 MOXIFLOXACIN HCL Inactive CHERATUSSIN AC 100-10 MG/5ML SYRP 1 tsp by mouth every 4 hours as needed for cough CHERATUSSIN AC 100-10 MG/5ML SYRP 617569 GUAIFENESIN-CODEINE Inactive TERBINAFINE HCL 250 MG TABS 1 qDay TERBINAFINE HCL 250 MG TABS 621976 TERBINAFINE HCL Inactive CHERATUSSIN AC 100-10 MG/5ML SYRP 1 tsp by mouth every 4 hours as needed for cough CHERATUSSIN AC 100-10 MG/5ML SYRP 508249 GUAIFENESIN-CODEINE Inactive ACETAMINOPHEN-CODEINE #3 300-30 MG TABS 1 PO Q 4-6 HRS PRN PAIN ACETAMINOPHEN-CODEINE #3 300-30 MG TABS 246202 ACETAMINOPHEN-CODEIN E Inactive CHERATUSSIN AC 100-10 MG/5ML SYRP 1 tsp by mouth every 4 hours as needed for cough CHERATUSSIN AC 100-10 MG/5ML SYRP 524066 GUAIFENESIN-CODEINE Inactive AUGMENTIN 875-125 MG TAB 1 tab by mouth twice daily with food 20 12/03/31 AUGMENTIN 875-125 MG TAB 190647 AMOXICILLIN-POT CLAVULA EFE Inactive CHERATUSSIN AC 100-10 MG/5ML SYRP take one tsp po Q 6hours prn c ough CHERATUSSIN AC 100-10 MG/5ML SYRP 771197 GUAIFENESIN-CO DEINE Inactive PROPRANOLOL HCL 60 MG TABS 1 PO Q D P ROPRANOLOL HCL 60 MG TABS 117806 PROPRANOLOL HCL Inactive TOPAMAX 50 MG TABS take 1 tab po BID for migraines. 12/07/10 TOPAMAX 50 MG TABS 105102 TOPIRAMATE Inactive TOPAMAX 25 MG TABS 1 qHS x 1 week, then 1 BID x 1 week, then 1 qAM and 2 qHS x 1 week, then 2 BID (migraine prevention) TOPAMAX 2 5 MG TABS 860348 TOPIRAMATE Inactive LYRICA 75 MG CAPS TAKE 1 CAPSULE BY MOUTH TWICE DAILY LYRICA 75 MG CAPS PREGABALIN Inactive ZITHROMAX Z-ERYNA 250 MG TABS 2 today, then 1 daily for 4 days 201 04/09/17 ZITHROMAX Z-REYNA 250 MG TABS 8248666 AZITHROMYCIN Inac tive CEFDINIR 300 MG CAPS [...] twice a day CEFDINIR 300 MG CAPS 528601 CEFDINIR Inactive ZITHROMAX 250 MG TAB 2 po today, then 1 po q days 2-5 ZITHROMAX 250 MG TAB 9272613 AZITHROMYCIN Inactive CEFDINIR 300 MG CAPS by mouth twice a day CEFDINIR 300 MG CAPS 20020704 CEFDINIR Inactive PREDNISONE 20 MG TAB 2 tabs daily for 3 days, 1 t ab daily for 3 days, 1/2 tab daily for 2 days PREDNISONE 20 MG TAB 250242 PREDNISON E Inactive AVELOX 400 MG TABS 1 tab by mouth daily A VELOX 400 MG TABS 116642 MOXIFLOXACIN HCL Inactive AVELOX 400 MG TABS 1 tab by mouth daily A VELOX 400 MG TABS 919397 MOXIFLOXACIN HCL Inactive PREDNISONE 20 MG TAB Take 3 tabs daily for 3 days , 2 tabs daily for 3 days, 1 tab daily for 3 days, 1/2 tab daily for 3 days PREDNISONE 20 MG TAB 645503 PREDNISONE Inactive LEVAQUIN 500 MG TABS take one po QD LEVAQUIN 50 0 MG TABS 164280 LEVOFLOXACIN Inactive AZITHROMYCIN 250 MG TABS 2 po qd x 1 day, then 1 po qd x 4 days AZITHROMYCIN 250 MG TABS 0782907 AZITHROMYCIN Inactiv e MEDROL (REYNA) 4 MG TABS 6 tabs on day 1, 5 tabs on d ay 2, 4 tabs on day 3, 3 tabs on day 4, 2 tabs on day 5, 1 tab on day 6 MEDROL (REYNA) 4 MG TABS METHYLPREDNISOLONE Inactive CHERATUSSIN AC 100-10 MG/5ML SYRP 5ml po q6hr PRN Cough CHERATUSSIN AC 100-10 MG/5ML SYRP 591390 GUAIFENESIN-CODEINE Inacti ve TRIAMCINOLONE ACETONIDE 0.1 % CREA apply three times daily prn r beatrice TRIAMCINOLONE ACETONIDE 0.1 % CREA 0867496 TRIAMCINOLONE ACETONIDE Inactive Vital Signs Date Name [...] - 3141-9 152.38 [lb_av] Weigh t Measured blood pressure, diastolic - 8462-4 81 mm[Hg] BP srinivasan blood pressure, systolic - 8480-6 124 mm[Hg] BP sys height E&M - 8302-2 152 [in_us] Bdy h eight pulse rate E&M - 8867-4 80 /min H eart rate temperature E&M 97.6 [degF] Body temp erature weight E&M - 3141-9 153 [lb_av] Weigh t Measured Diagnostic Results Date Name Value Unit Range Description Lab Report: CBC, Comp. Metabolic Panel, Lipid Panel, Thyroid Stimulating ... - Chemistry sodium, serum 143 mmol/L 464-848 5504/01/24 potassium, serum 4.1 mmol/L 3.5-5.2 chloride, serum [...] 0.60 mg/dL 0.00-1.00 cholesterol, serum 227 mg/dL 846-054 8273/01/24 triglyceride, serum, fasting 97 mg/dL 30-200 HDL [...] mg/dL Encounters Code Encounter Date Provider Facility CPT-24565 Level 3 Est. Patient 19:50:35 UNITIZER Carlton rich MD [facility] CPT-51603 Level 4 Est. Patient 18:05:01 UNITIZER Carlton rich MD [facility] CPT-62250 Level 3 Est. Patient 10:45:55 UNITIZER Hugo Restrepo MD [facility] CPT-22912 Level 3 Est. Patient 14:12:49 CDT Griffin HERNANDEZ [facility] CPT-22369 Level 3 Est. Patient 17:37:24 CDT Carlton rich MD [facility] CPT-33427 Level 3 Est. Patient 16:51:54 CDT Carlton rich MD [facility] CPT-92421 Level 3 Est. Patient 12:18:11 CDT Hugo Restrepo MD [facility] CPT-50300 Level 3 Est. Patient 11:30:25 CDT Marcy crisostomo MD PhD [facility] CPT-60326 Level 3 Est. Patient 12:00:47 UNITIZER Carlton rich MD [facility] CPT-69580 Level 3 Est. Patient 16:31:06 UNITIZER Carlton rich MD [facility] CPT-67834 Level 3 Est. Patient 16:23:24 UNITIZER Ridge tam [facility] CPT-66313 Level 3 Est. Patient 12:34:12 CDT Carlton rich MD [facility] CPT-70336 Level 2 Est. Patient 15:43:33 CDT Robi armstrong MD [facility] CPT-30400 Level 4 Est. Patient 14:04:44 CDT Carlton rich MD [facility] CPT-16785 Level 3 Est. Patient 05:47:59 CDT Ridge tam [facility] CPT-13509 Level 3 Est. Patient 13:12:53 UNITIZER Carlton rich MD [facility] CPT-94861 Level 3 Est. Patient 14:26:53 CDT Hguo Restrepo MD [facility] Procedures Code Procedure Name Date Entry Date Standard Desc ription CPT-59292 Abx/Therapy Injection 13:28:47 UNITIZER CPT-J2930 Solu Medrol 125 mg (Methyl Prednisolone Sodium Succinate) 12:00:47 UNITIZER CPT-11439 Venipuncture Draw Fee 11:33:31 CDT CPT-01931 EKG Trac and Interp 11:21:09 CDT CPT-98318 Chest 2V Frontal and Lat 11:21:09 CDT 12/15 CPT-99636 Venipuncture Draw Fee 08:02:34 CDT CPT-10234 Chest 2V Frontal and Lat 05:47:59 CDT 06/05
--- OUTSIDE RECORDS SUMMARY | 2019-10-08 10:23 | XMS REPORT | Clinical Summary ---
Author Author Admin, Juliana Martinez Organization [facility] Address Unknown Phone Allergies, Adverse [...] general medical examination at a [facility] MAMMOGRAM, ABNORMAL [phone] Active Carlton [...] ICD-786.05 Inactive Marcy De La Rosa MD [facility] HEALTH SCREENING ICD-V70.0 Inactive Marcy ya [...] then 2 BID (migraine prevention) TOPIRAMAT E [id number] No Longer Active Jerica Osei RMTorin Active TOPAMAX 50 MG TABS take 1 tab po BID for migraines. 12/07/10 TOPIRAMATE 14348419834 No Longer Active Jerica Osei RMA Ac tive TOPAMAX 100 MG TABS Take 1 tablet po bid TOPIRAMATE 4999 [id number] Active Carlton Hu MD Active TRIAMCINOLONE ACETONIDE 0.1 % CREA apply three times daily prn r beatrice TRIAMCINOLONE ACETONIDE 49789301467 No Longer Active Carlton Hu MD Active PAXIL 40 MG TAB take 1 tab po qday for depression PAROXETINE HCL 38473226840 Active Carlton Hu MD Active CYMBALTA 30 MG CPEP 1 cap by mouth daily DULOXE SNEHA HCL 81319965632 Active Carlton Hu MD Active CHERATUSSIN AC 100-10 MG/5ML SYRP 5ml po q6hr PRN Cough GUAIFENESIN-CODEINE 39858532284 No Longer Active Carlton Hu MD Active MEDROL (REYNA) 4 MG TABS 6 tabs on day 1, 5 tabs on d ay 2, 4 tabs on day 3, 3 tabs on day 4, 2 tabs on day 5, 1 tab on day 6 METHYLPREDNISOLONE 49391913995 No Longer Active Perez Mora MD Active AZITHROMYCIN 250 MG TABS 2 po qd x 1 day, then 1 po qd x 4 days AZITHROMYCIN 94086776198 No Longer Active Perez Mora MD Active PROPRANOLOL HCL 60 MG TABS 1 PO Q D PROPRANOL OL HCL 38177958426 No Longer Active Perez Mora MD Active CHERATUSSIN AC 100-10 MG/5ML SYRP take one tsp po Q 6hours prn c ough GUAIFENESIN-CODEINE 24128284430 No Longer Active Perez Means Active AUGMENTIN 875-125 MG TAB 1 tab by mouth twice daily with food 20 12/03/31 AMOXICILLIN-POT CLAVULANATE 44402745267 No Longer Active Chanel Mora MD Active CHERATUSSIN AC 100-10 MG/5ML SYRP 1 tsp by mouth every 4 hours as needed for cough GUAIFENESIN-CODEINE 70862594277 No Longer Activ e Hugo Restrepo MD Active ACETAMINOPHEN-CODEINE #3 300-30 MG TABS 1 PO Q 4-6 HRS PRN PAIN ACETAMINOPHEN-CODEINE 82980240444 No Longer Active Hugo Restrepo MD Active LEVAQUIN 500 MG TABS take one po QD LEVOFLOXACI N 06735761044 No Longer Active Griffin HERNANDEZ Active PREDNISONE 20 MG TAB Take 3 tabs daily for 3 days , 2 tabs daily for 3 days, 1 tab daily for 3 days, 1/2 tab daily for 3 days P REDNISONE 91391404780 No Longer Active Carlton Hu MD Active AVELOX 400 MG TABS 1 tab by mouth daily MOXIFLO XACIN HCL 34445420472 No Longer Active Carlton Hu MD Active CHERATUSSIN AC 100-10 MG/5ML SYRP 1 tsp by mouth every 4 hours as needed for cough GUAIFENESIN-CODEINE 27524994932 No Longer Activ e Hugo Restrepo MD Active AVELOX 400 MG TABS 1 tab by mouth daily MOXIFLO XACIN HCL 34268571109 No Longer Active Marcy De La Rosa MD PhD Active TERBINAFINE HCL 250 MG TABS 1 qDay TERBINAF INE HCL 19865901642 No Longer Active Marcy De La Rosa MD PhD Active CHERATUSSIN AC 100-10 MG/5ML SYRP 1 tsp by mouth every 4 hours as needed for cough GUAIFENESIN-CODEINE 82020502184 No Longer Activ e Marcy De La Rosa MD PhD Active AVELOX 400 MG TABS 1 tab by mouth daily MOXIFLO XACIN HCL 80414847834 No Longer Active Marcy De La Rosa MD PhD Active HYDROCODONE-ACETAMINOPHEN 5-325 MG TABS 1 po q 6hr PRN cough 201 05/09/16 HYDROCODONE-ACETAMINOPHEN 13719268191 No Longer Active Marcy De La Rosa MD PhD Active PREDNISONE 20 MG TAB 2 tabs daily for 3 days, 1 t ab daily for 3 days, 1/2 tab daily for 2 days PREDNISONE 39930389795 No Longer Active Carlton Hu MD Active CEFDINIR 300 MG CAPS by mouth twice a day CEFDI ODILIA 90786795978 No Longer Active Carlton Hu MD Active ZOCOR 40 MG TAB 1 tab by mouth daily SIMVASTATIN 37640039968 Active Carlton Hu MD Active HYDROCHLOROTHIAZIDE 25 MG TABS 1 TAB PO DAILY H YDROCHLOROTHIAZIDE 80207748745 Active Carlton Hu MD Active ACETAMINOPHEN-CODEINE #3 300-30 MG TABS 1 tablet po q 4-6hrs prn pain ACETAMINOPHEN-CODEINE 48834432823 No Longer Active Ridge Bess DO Active ZITHROMAX 250 MG TAB 2 po today, then 1 po q days 2-5 AZITHROMYCIN 32485904189 No Longer Active Carlton Hu MD Acti ve CHERATUSSIN AC 100-10 MG/5ML SYRP take 1 tsp po q4-6 hours prn c ough GUAIFENESIN-CODEINE 83618886619 No Longer Active Carlton Hu MD Active ACETAMINOPHEN-CODEINE #3 300-30 MG TABS 1 PO Q 4-6 HR PRN PAIN 2 ACETAMINOPHEN-CODEINE 78921764846 No Longer Active Carlton rich MD Active LORTAB 7.5-500 MG/15ML ELIX 7.5 ml po q 4 hour prn cough HYDROCODONE-ACETAMINOPHEN 08919544240 No Longer Active Carlton Hu MD Active PREDNISONE 20 MG TAB 1 po bid 3 days, then 1 po q day 3 days 201 05/03/07 PREDNISONE 49919376834 No Longer Active Carlton Hu MD Active SYMBICORT 160-4.5 MCG/ACT AERO 2 puffs bid with rinse after BUDESONIDE-FORMOTEROL FUMARATE 14931980417 Active Carlton Hu MD Active ELMIRON 100 MG CAPS 2 tablets in the am and 1 tablet at hs PENTOSAN POLYSULFATE SODIUM 34400648236 Active Gracie Bunceton Active CEFDINIR 300 MG CAPS by mouth twice a day CEFDI ODILIA 33325277830 No Longer Active Carlton Hu MD Active CEFDINIR 300 MG CAPS by mouth twice a day CEFDI ODILIA 16272900887 No Longer Active Carlton Hu MD Active CEFDINIR 300 MG CAPS by mouth twice a day CEFDI ODILIA 92675911372 No Longer Active Carlton Hu MD Active TESSALON PERLES 100 MG CAP 1 tablet by mouth 3 times daily a s needed for cough BENZONATATE 85874016560 No Longer Active Carlton bustamante MD Active CEFDINIR 300 MG CAPS by mouth twice a day CEFDI ODILIA 20882926444 No Longer Active Carlton Hu MD Active ZITHROMAX Z-REYNA 250 MG TABS 2 today, then 1 daily for 4 days 201 04/09/17 AZITHROMYCIN 82163988808 No Longer Active Hugo Restrepo MD Active PREMARIN 0.625 MG TABS TAKE 1 TAB BY MOUTH DAILY ESTROGENS CONJUGATED 29369095515 Active Carlton Hu MD Active LYRICA 75 MG CAPS TAKE 1 CAPSULE BY MOUTH TWICE DAILY PREGABALIN 20784413891 Active Carlton Hu MD Active TESSALON PERLES 100 MG CAP 1 tablet by mouth 3 times daily a s needed for cough TESSALON PERLES 100 MG CAP 798131 BENZONATATE I nactive PREDNISONE 20 MG TAB 1 po bid 3 days, then 1 po q day 3 days 201 05/03/07 PREDNISONE 20 MG TAB 016016 PREDNISONE Inactive LORTAB 7.5-500 MG/15ML ELIX 7.5 ml po q 4 hour prn cough LORTAB 7.5-500 MG/15ML ELIX HYDROCODONE-ACETAMINOPHEN Inacti ve ACETAMINOPHEN-CODEINE #3 300-30 MG TABS 1 PO Q 4-6 HR PRN PAIN 2 ACETAMINOPHEN-CODEINE #3 300-30 MG TABS 081277 ACETAMIN OPHEN-CODEINE Inactive CHERATUSSIN AC 100-10 MG/5ML SYRP take 1 tsp po q4-6 hours prn c ough CHERATUSSIN AC 100-10 MG/5ML SYRP 550474 GUAIFENESIN-CO DEINE Inactive ACETAMINOPHEN-CODEINE #3 300-30 MG TABS 1 tablet po q 4-6hrs prn pain ACETAMINOPHEN-CODEINE #3 300-30 MG TABS 823077 ACETAMIN OPHEN-CODEINE Inactive HYDROCODONE-ACETAMINOPHEN 5-325 MG TABS 1 po q 6hr PRN cough 201 05/09/16 HYDROCODONE-ACETAMINOPHEN 5-325 MG TABS 863739 HYDROCODONE-ACETAMINOPHEN Inactive AVELOX 400 MG TABS 1 tab by mouth daily A VELOX 400 MG TABS 250364 MOXIFLOXACIN HCL Inactive CHERATUSSIN AC 100-10 MG/5ML SYRP 1 tsp by mouth every 4 hours as needed for cough CHERATUSSIN AC 100-10 MG/5ML SYRP 708156 GUAIFENESIN-CODEINE Inactive TERBINAFINE HCL 250 MG TABS 1 qDay TERBINAFINE HCL 250 MG TABS 805856 TERBINAFINE HCL Inactive CHERATUSSIN AC 100-10 MG/5ML SYRP 1 tsp by mouth every 4 hours as needed for cough CHERATUSSIN AC 100-10 MG/5ML SYRP 978386 GUAIFENESIN-CODEINE Inactive ACETAMINOPHEN-CODEINE #3 300-30 MG TABS 1 PO Q 4-6 HRS PRN PAIN ACETAMINOPHEN-CODEINE #3 300-30 MG TABS 054415 ACETAMINOPHEN-CODEIN E Inactive CHERATUSSIN AC 100-10 MG/5ML SYRP 1 tsp by mouth every 4 hours as needed for cough CHERATUSSIN AC 100-10 MG/5ML SYRP 832186 GUAIFENESIN-CODEINE Inactive AUGMENTIN 875-125 MG TAB 1 tab by mouth twice daily with food 20 12/03/31 AUGMENTIN 875-125 MG TAB 329688 AMOXICILLIN-POT CLAVULA EFE Inactive CHERATUSSIN AC 100-10 MG/5ML SYRP take one tsp po Q 6hours prn c ough CHERATUSSIN AC 100-10 MG/5ML SYRP 212029 GUAIFENESIN-CO DEINE Inactive PROPRANOLOL HCL 60 MG TABS 1 PO Q D P ROPRANOLOL HCL 60 MG TABS 451903 PROPRANOLOL HCL Inactive TOPAMAX 50 MG TABS take 1 tab po BID for migraines. 12/07/10 TOPAMAX 50 MG TABS 152481 TOPIRAMATE Inactive TOPAMAX 25 MG TABS 1 qHS x 1 week, then 1 BID x 1 week, then 1 qAM and 2 qHS x 1 week, then 2 BID (migraine prevention) TOPAMAX 2 5 MG TABS 442921 TOPIRAMATE Inactive ZITHROMAX Z-REYNA 250 MG TABS 2 today, then 1 daily for 4 days 201 04/09/17 ZITHROMAX Z-REYNA 250 MG TABS 2824362 AZITHROMYCIN Inac tive CEFDINIR 300 MG CAPS by mouth twice a day CEFDINIR 300 MG CAPS 20020704 CEFDINIR Inactive CEFDINIR 300 MG CAPS by mouth twice a day CEFDINIR 300 MG CAPS 20020704 CEFDINIR Inactive CEFDINIR 300 MG CAPS by mouth twice a day CEFDINIR 300 MG CAPS 092623 CEFDINIR Inactive CEFDINIR 300 MG CAPS by mouth twice a day CEFDINIR 300 MG CAPS 20020704 CEFDINIR Inactive ZITHROMAX 250 MG TAB 2 po today, then 1 po q days 2-5 ZITHROMAX 250 MG TAB 2853484 AZITHROMYCIN Inactive CEFDINIR 300 MG CAPS by mouth twice a day CEFDINIR 300 MG CAPS 20020704 CEFDINIR Inactive PREDNISONE 20 MG TAB 2 tabs daily for 3 days, 1 t ab daily for 3 days, 1/2 tab daily for 2 days PREDNISONE 20 MG TAB 006761 PREDNISON E Inactive AVELOX 400 MG TABS 1 tab by mouth daily A VELOX 400 MG TABS 433158 MOXIFLOXACIN HCL Inactive AVELOX 400 MG TABS 1 tab by mouth daily A VELOX 400 MG TABS 641629 MOXIFLOXACIN HCL Inactive PREDNISONE 20 MG TAB Take 3 tabs daily for 3 days , 2 tabs daily for 3 days, 1 tab daily for 3 days, 1/2 tab daily for 3 days PREDNISONE 20 MG TAB 656152 PREDNISONE Inactive LEVAQUIN 500 MG TABS take one po QD LEVAQUIN 50 0 MG TABS 972390 LEVOFLOXACIN Inactive AZITHROMYCIN 250 MG TABS 2 po qd x 1 day, then 1 po qd x 4 days AZITHROMYCIN 250 MG TABS 1803054 AZITHROMYCIN Inactiv e MEDROL (REYNA) 4 MG TABS 6 tabs on day 1, 5 tabs on d ay 2, 4 tabs on day 3, 3 tabs on day 4, 2 tabs on day 5, 1 tab on day 6 MEDROL (REYNA) 4 MG TABS METHYLPREDNISOLONE Inactive CHERATUSSIN AC 100-10 MG/5ML SYRP 5ml po q6hr PRN Cough CHERATUSSIN AC 100-10 MG/5ML SYRP 505397 GUAIFENESIN-CODEINE Inacti ve TRIAMCINOLONE ACETONIDE 0.1 % CREA apply three times daily prn r beatrice TRIAMCINOLONE ACETONIDE 0.1 % CREA 5662842 TRIAMCINOLONE ACETONIDE Inactive Vital Signs Date Name [...] ... - Chemistry sodium, serum 143 mmol/L 399-372 5765/01/24 potassium, serum 4.1 mmol/L 3.5-5.2 chloride, serum [...] 0.60 mg/dL 0.00-1.00 cholesterol, serum 227 mg/dL 395-282 3455/01/24 triglyceride, serum, fasting 97 mg/dL 30-200 HDL [...] mg/dL Encounters Code Encounter Date Provider Facility CPT-43845 Level 3 Est. Patient 19:50:35 HE[employer] CARE MARKETING SPECIALIST Carlton rich MD [facility] CPT-87942 Level 4 Est. Patient 18:05:01 HEALTH CARE MARKETING SPECIALIST Carlton rich MD [facility] CPT-26305 Level 3 Est. Patient 10:45:55 HEALTH CARE MARKETING SPECIALIST Hugo Restrepo MD [facility] CPT-77814 Level 3 Est. Patient 14:12:49 CDT Griffin HERNANDEZ [facility] CPT-92729 Level 3 Est. Patient 17:37:24 CDT Carlton rich MD [facility] CPT-34318 Level 3 Est. Patient 16:51:54 CDT Carlton rich MD [facility] CPT-90739 Level 3 Est. Patient 12:18:11 CDT Hugo Restrepo MD [facility] CPT-56204 Level 3 Est. Patient 11:30:25 CDT Marcy crisostomo MD PhD [facility] CPT-74246 Level 3 Est. Patient 12:00:47 HEALTH CARE MARKETING SPECIALIST Carlton rich MD [facility] CPT-83180 Level 3 Est. Patient 16:31:06 HEALTH CARE MARKETING SPECIALIST Carlton rich MD [facility] CPT-53602 Level 3 Est. Patient 16:23:24 HEALTH CARE MARKETING SPECIALIST Ridge tam [facility] CPT-47236 Level 3 Est. Patient 12:34:12 CDT Carlton rich MD [facility] CPT-53720 Level 2 Est. Patient 15:43:33 CDT Robi armstrong MD [facility] CPT-52754 Level 4 Est. Patient 14:04:44 CDT Carlton rich MD [facility] CPT-21567 Level 3 Est. Patient 05:47:59 CDT Ridge tam [facility] CPT-33792 Level 3 Est. Patient 13:12:53 HEALTH CARE MARKETING SPECIALIST Carlton rich MD [facility] CPT-20263 Level 3 Est. Patient 14:26:53 CDT Hugo Restrepo MD [facility] Procedures Code Procedure Name Date Entry Date Standard Desc ription CPT-59141 Abx/Therapy Injection 13:28:47 HEALTH CARE MARKETING SPECIALIST CPT-J2930 Solu Medrol 125 mg (Methyl Prednisolone Sodium Succinate) 12:00:47 HEALTH CARE MARKETING SPECIALIST CPT-42787 Venipuncture Draw Fee 11:33:31 CDT CPT-33152 EKG Trac and Interp 11:21:09 CDT CPT-37003 Chest 2V Frontal and Lat 11:21:09 CDT 12/15 CPT-64593 Venipuncture Draw Fee 08:02:34 CDT CPT-40681 Chest 2V Frontal and Lat 05:47:59 CDT 06/05
--- OUTSIDE RECORDS SUMMARY | 2019-10-08 10:24 | XMS REPORT | Clinical Summary ---
Author Author Caitlin, Juliana Martinez Organization [facility] Address Unknown Phone Unavailable Allergies, Adverse [...] BID prn had pain 2 CYCLOBENZAPRINE HCL [id number] Active Carlotn Hu MD A ctive PROMETHAZINE-CODEINE 6.25-10 MG/5ML SYRP 1 tsp by mouth ever y 8 hours prn cough PROMETHAZINE-CODEINE 02411718607 No Longer Active Robert Hu MD Active MEDROL (REYNA) 4 MG TABS 6 pills x 1 day, then 5 pill s x 1 day then 4 pills x 1 day, then 3 pills x 1 day, then 2 pills x 1 day, then 1 pill x 1 day, then stop METHYLPREDNISOLONE 01432536667 No Longer Active Parris Mora MD Active AZITHROMYCIN 250 MG TABS 2 po qd x 1 day, then 1 po qd x 4 days AZITHROMYCIN 53880935124 No Longer Active Perez Mora MD Active SYMBICORT 160-4.5 MCG/ACT AERO 2 puffs bid with rinse after 2011 BUDESONIDE-FORMOTEROL FUMARATE 75298935825 No Longer Active Perez Mora MD Active LYRICA 75 MG CAPS TAKE 1 CAPSULE BY MOUTH TWICE DAILY 2013 PREGABALIN 61772089101 No Longer Active Carlton Hu MD Active LYRICA 100 MG CAPS Take 1 tab po BID for fibromyalgia PREGABALIN 42567286236 Active Carlton Hu MD Active TOPAMAX 25 MG TABS 1 qHS x 1 week, then 1 BID x 1 week, then 1 qAM and 2 qHS x 1 week, then 2 BID (migraine prevention) TOPIRAMAT E 46063221942 No Longer Active Jerica FUENTES Active TOPAMAX 50 MG TABS take 1 tab po BID for migraines. 12/07/10 TOPIRAMATE 77642056465 No Longer Active Jerica FUENTES Ac tive TOPAMAX 100 MG TABS Take 1 tablet po bid TOPIRAMATE 4999 6569229 Active Carlton Hu MD Active TRIAMCINOLONE ACETONIDE 0.1 % CREA apply three times daily prn r beatrice TRIAMCINOLONE ACETONIDE 47639770595 No Longer Active Carlton Hu MD Active PAXIL 40 MG TAB take 1 tab po qday for depression PAROXETINE HCL 77189935972 Active Carlton Hu MD Active CYMBALTA 30 MG CPEP 1 cap by mouth daily DULOXE SNEHA HCL 17449307671 Active Carlton Hu MD Active CHERATUSSIN AC 100-10 MG/5ML SYRP 5ml po q6hr PRN Cough GUAIFENESIN-CODEINE 23644931150 No Longer Active Carlton Hu MD Active MEDROL (REYNA) 4 MG TABS 6 tabs on day 1, 5 tabs on d ay 2, 4 tabs on day 3, 3 tabs on day 4, 2 tabs on day 5, 1 tab on day 6 METHYLPREDNISOLONE 54364685548 No Longer Active Perez Mora MD Active AZITHROMYCIN 250 MG TABS 2 po qd x 1 day, then 1 po qd x 4 days AZITHROMYCIN 30249458186 No Longer Active Perez Mora MD Active PROPRANOLOL HCL 60 MG TABS 1 PO Q D PROPRANOL OL HCL 53479808000 No Longer Active Perez Mora MD Active CHERATUSSIN AC 100-10 MG/5ML SYRP take one tsp po Q 6hours prn c ough GUAIFENESIN-CODEINE 63544000755 No Longer Active Perez Means Active AUGMENTIN 875-125 MG TAB 1 tab by mouth twice daily with food 20 12/03/31 AMOXICILLIN-POT CLAVULANATE 53726541651 No Longer Active Chanel Mora MD Active CHERATUSSIN AC 100-10 MG/5ML SYRP 1 tsp by mouth every 4 hours as needed for cough GUAIFENESIN-CODEINE 27985509339 No Longer Activ e Hugo Restrepo MD Active ACETAMINOPHEN-CODEINE #3 300-30 MG TABS 1 PO Q 4-6 HRS PRN PAIN ACETAMINOPHEN-CODEINE 60725292976 No Longer Active Hugo Restrepo MD Active LEVAQUIN 500 MG TABS take one po QD LEVOFLOXACI N 40545933074 No Longer Active Griffin HERNANDEZ Active PREDNISONE 20 MG TAB Take 3 tabs daily for 3 days , 2 tabs daily for 3 days, 1 tab daily for 3 days, 1/2 tab daily for 3 days P REDNISONE 48046107064 No Longer Active Carlton Hu MD Active AVELOX 400 MG TABS 1 tab by mouth daily MOXIFLO XACIN HCL 87618609086 No Longer Active Carlton Hu MD Active CHERATUSSIN AC 100-10 MG/5ML SYRP 1 tsp by mouth every 4 hours as needed for cough GUAIFENESIN-CODEINE 83622076262 No Longer Activ e Hugo Restrepo MD Active AVELOX 400 MG TABS 1 tab by mouth daily MOXIFLO XACIN HCL 50925700203 No Longer Active Marcy De La Rosa MD PhD Active TERBINAFINE HCL 250 MG TABS 1 qDay TERBINAF INE HCL 18675585598 No Longer Active Marcy De La Rosa MD PhD Active CHERATUSSIN AC 100-10 MG/5ML SYRP 1 tsp by mouth every 4 hours as needed for cough GUAIFENESIN-CODEINE 17141986687 No Longer Activ e Marcy De La Rosa MD PhD Active AVELOX 400 MG TABS 1 tab by mouth daily MOXIFLO XACIN HCL 86341532627 No Longer Active Marcy De La Rosa MD PhD Active HYDROCODONE-ACETAMINOPHEN 5-325 MG TABS 1 po q 6hr PRN cough 201 05/09/16 HYDROCODONE-ACETAMINOPHEN 77920862718 No Longer Active Marcy De La Rosa MD PhD Active PREDNISONE 20 MG TAB 2 tabs daily for 3 days, 1 t ab daily for 3 days, 1/2 tab daily for 2 days PREDNISONE 40621060611 No Longer Active Carlton Hu MD Active CEFDINIR 300 MG CAPS by mouth twice a day CEFDI ODILIA 41805992893 No Longer Active Carlton Hu MD Active ZOCOR 40 MG TAB 1 tab by mouth daily SIMVASTATIN 84223054127 Active Carlton Hu MD Active HYDROCHLOROTHIAZIDE 25 MG TABS 1 TAB PO DAILY H YDROCHLOROTHIAZIDE 88288139991 Active Carlton Hu MD Active ACETAMINOPHEN-CODEINE #3 300-30 MG TABS 1 tablet po q 4-6hrs prn pain ACETAMINOPHEN-CODEINE 34461449151 No Longer Active Ridge Bess DO Active ZITHROMAX 250 MG TAB 2 po today, then 1 po q days 2-5 AZITHROMYCIN 72921095309 No Longer Active Carlton Hu MD Acti ve CHERATUSSIN AC 100-10 MG/5ML SYRP take 1 tsp po q4-6 hours prn c ough GUAIFENESIN-CODEINE 45742379339 No Longer Active Carlton Hu MD Active ACETAMINOPHEN-CODEINE #3 300-30 MG TABS 1 PO Q 4-6 HR PRN PAIN 2 ACETAMINOPHEN-CODEINE 62214507010 No Longer Active Carlton rich MD Active LORTAB 7.5-500 MG/15ML ELIX 7.5 ml po q 4 hour prn cough HYDROCODONE-ACETAMINOPHEN 14888782709 No Longer Active Carlton Hu MD Active PREDNISONE 20 MG TAB 1 po bid 3 days, then 1 po q day 3 days 201 05/03/07 PREDNISONE 96384492973 No Longer Active Carlton Hu MD Active ELMIRON 100 MG CAPS 2 tablets in the am and 1 tablet at hs PENTOSAN POLYSULFATE SODIUM 78038892921 Active Gracie Taylor Active CEFDINIR 300 MG CAPS by mouth twice a day CEFDI ODILIA 43984838654 No Longer Active Carlton Hu MD Active CEFDINIR 300 MG CAPS by mouth twice a day CEFDI ODILIA 24009130080 No Longer Active Carlton Hu MD Active CEFDINIR 300 MG CAPS by mouth twice a day CEFDI ODILIA 92356354503 No Longer Active Carlton Hu MD Active TESSALON PERLES 100 MG CAP 1 tablet by mouth 3 times daily a s needed for cough BENZONATATE 14669854898 No Longer Active Carlton bustamante MD Active CEFDINIR 300 MG CAPS by mouth twice a day CEFDI ODILIA 02385581464 No Longer Active Carlton Hu MD Active ZITHROMAX Z-REYNA 250 MG TABS 2 today, then 1 daily for 4 days 201 04/09/17 AZITHROMYCIN 21991712394 No Longer Active Hugo Restrepo MD Active PREMARIN 0.625 MG TABS TAKE 1 TAB BY MOUTH DAILY ESTROGENS CONJUGATED 19193462064 Active Carlton Hu MD Active TESSALON PERLES 100 MG CAP 1 tablet by mouth 3 times daily a s needed for cough TESSALON PERLES 100 MG CAP 369896 BENZONATATE I nactive PREDNISONE 20 MG TAB 1 po bid 3 days, then 1 po q day 3 days 201 05/03/07 PREDNISONE 20 MG TAB 541551 PREDNISONE Inactive LORTAB 7.5-500 MG/15ML ELIX 7.5 ml po q 4 hour prn cough LORTAB 7.5-500 MG/15ML ELIX HYDROCODONE-ACETAMINOPHEN Inacti ve ACETAMINOPHEN-CODEINE #3 300-30 MG TABS 1 PO Q 4-6 HR PRN PAIN 2 ACETAMINOPHEN-CODEINE #3 300-30 MG TABS 350337 ACETAMIN OPHEN-CODEINE Inactive CHERATUSSIN AC 100-10 MG/5ML SYRP take 1 tsp po q4-6 hours prn c ough CHERATUSSIN AC 100-10 MG/5ML SYRP 811608 GUAIFENESIN-CO DEINE Inactive ACETAMINOPHEN-CODEINE #3 300-30 MG TABS 1 tablet po q 4-6hrs prn pain ACETAMINOPHEN-CODEINE #3 300-30 MG TABS 802187 ACETAMIN OPHEN-CODEINE Inactive HYDROCODONE-ACETAMINOPHEN 5-325 MG TABS 1 po q 6hr PRN cough 201 05/09/16 HYDROCODONE-ACETAMINOPHEN 5-325 MG TABS 842120 HYDROCODONE-ACETAMINOPHEN Inactive AVELOX 400 MG TABS 1 tab by mouth daily A VELOX 400 MG TABS 029500 MOXIFLOXACIN HCL Inactive CHERATUSSIN AC 100-10 MG/5ML SYRP 1 tsp by mouth every 4 hours as needed for cough CHERATUSSIN AC 100-10 MG/5ML SYRP 509971 GUAIFENESIN-CODEINE Inactive TERBINAFINE HCL 250 MG TABS 1 qDay TERBINAFINE HCL 250 MG TABS 413141 TERBINAFINE HCL Inactive CHERATUSSIN AC 100-10 MG/5ML SYRP 1 tsp by mouth every 4 hours as needed for cough CHERATUSSIN AC 100-10 MG/5ML SYRP 168393 GUAIFENESIN-CODEINE Inactive ACETAMINOPHEN-CODEINE #3 300-30 MG TABS 1 PO Q 4-6 HRS PRN PAIN ACETAMINOPHEN-CODEINE #3 300-30 MG TABS 278034 ACETAMINOPHEN-CODEIN E Inactive CHERATUSSIN AC 100-10 MG/5ML SYRP 1 tsp by mouth every 4 hours as needed for cough CHERATUSSIN AC 100-10 MG/5ML SYRP 636205 GUAIFENESIN-CODEINE Inactive AUGMENTIN 875-125 MG TAB 1 tab by mouth twice daily with food 20 12/03/31 AUGMENTIN 875-125 MG TAB 629539 AMOXICILLIN-POT CLAVULA EFE Inactive CHERATUSSIN AC 100-10 MG/5ML SYRP take one tsp po Q 6hours prn c ough CHERATUSSIN AC 100-10 MG/5ML SYRP 267208 GUAIFENESIN-CO DEINE Inactive PROPRANOLOL HCL 60 MG TABS 1 PO Q D P ROPRANOLOL HCL 60 MG TABS 691395 PROPRANOLOL HCL Inactive TOPAMAX 50 MG TABS take 1 tab po BID for migraines. 12/07/10 TOPAMAX 50 MG TABS 048148 TOPIRAMATE Inactive TOPAMAX 25 MG TABS 1 qHS x 1 week, then 1 BID x 1 week, then 1 qAM and 2 qHS x 1 week, then 2 BID (migraine prevention) TOPAMAX 2 5 MG TABS 157387 TOPIRAMATE Inactive LYRICA 75 MG CAPS TAKE 1 CAPSULE BY MOUTH TWICE DAILY LYRICA 75 MG CAPS PREGABALIN Inactive SYMBICORT 160-4.5 MCG/ACT AERO 2 puffs bid with rinse after 2011 SYMBICORT 160-4.5 MCG/ACT AERO BUDESONIDE-FORMOT SÁNCHEZ FUMARATE Inactive PROMETHAZINE-CODEINE 6.25-10 MG/5ML SYRP 1 tsp by mouth ever y 8 hours prn cough PROMETHAZINE-CODEINE 6.25-10 MG/5ML SYRP 881022 PROMETHAZINE-CODEINE Inactive ZITHROMAX Z-REYNA 250 MG TABS 2 today, then 1 daily for 4 days 201 04/09/17 ZITHROMAX Z-REYNA 250 MG TABS 3226536 AZITHROMYCIN Inac tive CEFDINIR 300 MG CAPS by mouth twice a day CEFDINIR 300 MG CAPS 20020704 CEFDINIR Inactive CEFDINIR 300 MG CAPS by mouth twice a day CEFDINIR 300 MG CAPS 616691 CEFDINIR Inactive CEFDINIR 300 MG CAPS by mouth twice a day CEFDINIR 300 MG CAPS 819449 CEFDINIR Inactive CEFDINIR 300 MG CAPS by mouth twice a day CEFDINIR 300 MG CAPS 238668 CEFDINIR Inactive ZITHROMAX 250 MG TAB 2 po today, then 1 po q days 2-5 ZITHROMAX 250 MG TAB 4603696 AZITHROMYCIN Inactive CEFDINIR 300 MG CAPS by mouth twice a day CEFDINIR 300 MG CAPS 20020704 CEFDINIR Inactive PREDNISONE 20 MG TAB 2 tabs daily for 3 days, 1 t ab daily for 3 days, 1/2 tab daily for 2 days PREDNISONE 20 MG TAB 788226 PREDNISON E Inactive AVELOX 400 MG TABS 1 tab by mouth daily A VELOX 400 MG TABS 761013 MOXIFLOXACIN HCL Inactive AVELOX 400 MG TABS 1 tab by mouth daily A VELOX 400 MG TABS 457329 MOXIFLOXACIN HCL Inactive PREDNISONE 20 MG TAB Take 3 tabs daily for 3 days , 2 tabs daily for 3 days, 1 tab daily for 3 days, 1/2 tab daily for 3 days PREDNISONE 20 MG TAB 945464 PREDNISONE Inactive LEVAQUIN 500 MG TABS take one po QD LEVAQUIN 50 0 MG TABS 227675 LEVOFLOXACIN Inactive AZITHROMYCIN 250 MG TABS 2 po qd x 1 day, then 1 po qd x 4 days AZITHROMYCIN 250 MG TABS 7685515 AZITHROMYCIN Inactiv e MEDROL (REYNA) 4 MG TABS 6 tabs on day 1, 5 tabs on d ay 2, 4 tabs on day 3, 3 tabs on day 4, 2 tabs on day 5, 1 tab on day 6 MEDROL (REYNA) 4 MG TABS METHYLPREDNISOLONE Inactive CHERATUSSIN AC 100-10 MG/5ML SYRP 5ml po q6hr PRN Cough CHERATUSSIN AC 100-10 MG/5ML SYRP 600774 GUAIFENESIN-CODEINE Inacti ve TRIAMCINOLONE ACETONIDE 0.1 % CREA apply three times daily prn r beatrice TRIAMCINOLONE ACETONIDE 0.1 % CREA 5364696 TRIAMCINOLONE ACETONIDE Inactive AZITHROMYCIN 250 MG TABS 2 po qd x 1 day, then 1 po qd x 4 days AZITHROMYCIN 250 MG TABS 4531633 AZITHROMYCIN Inactiv e MEDROL (REYNA) 4 MG [...] ... - Chemistry sodium, serum 143 mmol/L 550-062 2243/01/24 potassium, serum 4.1 mmol/L 3.5-5.2 chloride, serum [...] 0.60 mg/dL 0.00-1.00 cholesterol, serum 227 mg/dL 717-567 4402/01/24 triglyceride, serum, fasting 97 mg/dL 30-200 HDL [...] mg/dL Encounters Code Encounter Date Provider Facility CPT-47504 Level 3 Est. Patient 10:03:07 CDT Perez Mora MD [facility] CPT-83123 Level 3 Est. Patient 19:50:35 POLISHER APPRENTICE Carlton rich MD [facility] CPT-39603 Level 4 Est. Patient 18:05:01 POLISHER APPRENTICE Carlton rich MD [facility] CPT-23496 Level 3 Est. Patient 10:45:55 POLISHER APPRENTICE Hugo Restrepo MD [facility] CPT-80836 Level 3 Est. Patient 14:12:49 CDT Griffin HERNANDEZ [facility] CPT-68274 Level 3 Est. Patient 17:37:24 CDT Carlton rich MD [facility] CPT-68835 Level 3 Est. Patient 16:51:54 CDT Carlton rich MD [facility] CPT-10502 Level 3 Est. Patient 12:18:11 CDT Hugo Restrepo MD [facility] CPT-73800 Level 3 Est. Patient 11:30:25 CDT Marcy crisostomo MD PhD [facility] CPT-56573 Level 3 Est. Patient 12:00:47 POLISHER APPRENTICE Carlton rich MD [facility] CPT-52437 Level 3 Est. Patient 16:31:06 POLISHER APPRENTICE Carlton rich MD [facility] CPT-06405 Level 3 Est. Patient 16:23:24 POLISHER APPRENTICE Ridge tam [facility] CPT-25550 Level 3 Est. Patient 12:34:12 CDT Carlton rich MD [facility] CPT-77336 Level 2 Est. Patient 15:43:33 CDT Robi armstrong MD [facility] CPT-67999 Level 4 Est. Patient 14:04:44 CDT Carlton rich MD [facility] CPT-02941 Level 3 Est. Patient 05:47:59 CDT Ridge tam [facility] CPT-03469 Level 3 Est. Patient 13:12:53 POLISHER APPRENTICE Carlton rich MD [facility] CPT-89519 Level 3 Est. Patient 14:26:53 CDT Hugo Restrepo MD [facility] Procedures Code Procedure Name Date Entry Date Standard Desc ription CPT-76003 Fluzone Quadrivalent Intramuscular Suspe nsion 0.5 ML 14:31:55 CDT CPT-78381 Abx/Therapy Injection 13:28:47 POLISHER APPRENTICE CPT-J2930 Solu Medrol 125 mg (Methyl Prednisolone Sodium Succinate) 12:00:47 POLISHER APPRENTICE CPT-32535 Venipuncture Draw Fee 11:33:31 CDT CPT-43839 EKG Trac and Interp 11:21:09 CDT CPT-33822 Chest 2V Frontal and Lat 11:21:09 CDT 12/15 CPT-89782 Venipuncture Draw Fee 08:02:34 CDT CPT-61350 Chest 2V Frontal and Lat 05:47:59 CDT 06/05
--- OUTSIDE RECORDS SUMMARY | 2019-10-08 10:24 | XMS REPORT | Clinical Summary ---
Author Author Admin, Juliana Martinez Organization [facility] Address Unknown Phone Allergies, Adverse [...] PhD Routine [facility] MAMMOGRAM, ABNORMAL [phone] Active [...] ICD-786.05 Inactive Marcy De La Rosa MD [facility] HEALTH SCREENING ICD-V70.0 Inactive Marcy ya [...] then 2 BID (migraine prevention) TOPIRAMAT E [id number] No Longer Active Jerica Osei RMTorin Active TOPAMAX 50 MG TABS take 1 tab po BID for migraines. 12/07/10 TOPIRAMATE 72584429344 No Longer Active Jerica Osei RMA Ac tive TOPAMAX 100 MG TABS Take 1 tablet po bid TOPIRAMATE 4999 5189490 Active Carlton Hu MD Active TRIAMCINOLONE ACETONIDE 0.1 % CREA apply three times daily prn r beatrice TRIAMCINOLONE ACETONIDE 15208833638 No Longer Active Carlton Hu MD Active PAXIL 40 MG TAB take 1 tab po qday for depression PAROXETINE HCL 52366470420 Active Carlton Hu MD Active CYMBALTA 30 MG CPEP 1 cap by mouth daily DULOXE SNEHA HCL 40050011281 Active Carlton Hu MD Active CHERATUSSIN AC 100-10 MG/5ML SYRP 5ml po q6hr PRN Cough GUAIFENESIN-CODEINE 54441701904 No Longer Active Carlton Hu MD Active MEDROL (REYNA) 4 MG TABS 6 tabs on day 1, 5 tabs on d ay 2, 4 tabs on day 3, 3 tabs on day 4, 2 tabs on day 5, 1 tab on day 6 METHYLPREDNISOLONE 21651163362 No Longer Active Perez Mora MD Active AZITHROMYCIN 250 MG TABS 2 po qd x 1 day, then 1 po qd x 4 days AZITHROMYCIN 18418215411 No Longer Active Perez Mora MD Active PROPRANOLOL HCL 60 MG TABS 1 PO Q D PROPRANOL OL HCL 47205499559 No Longer Active Perez Mora MD Active CHERATUSSIN AC 100-10 MG/5ML SYRP take one tsp po Q 6hours prn c ough GUAIFENESIN-CODEINE 05002409592 No Longer Active Perez Means Active AUGMENTIN 875-125 MG TAB 1 tab by mouth twice daily with food 20 12/03/31 AMOXICILLIN-POT CLAVULANATE 38607397400 No Longer Active Chanel Mora MD Active CHERATUSSIN AC 100-10 MG/5ML SYRP 1 tsp by mouth every 4 hours as needed for cough GUAIFENESIN-CODEINE 62018903455 No Longer Activ e Hugo Restrepo MD Active ACETAMINOPHEN-CODEINE #3 300-30 MG TABS 1 PO Q 4-6 HRS PRN PAIN ACETAMINOPHEN-CODEINE 61240623974 No Longer Active Hugo Restrepo MD Active LEVAQUIN 500 MG TABS take one po QD LEVOFLOXACI N 86238217455 No Longer Active Griffin HERNANDEZ Active PREDNISONE 20 MG TAB Take 3 tabs daily for 3 days , 2 tabs daily for 3 days, 1 tab daily for 3 days, 1/2 tab daily for 3 days P REDNISONE 98727400978 No Longer Active Carlton Hu MD Active AVELOX 400 MG TABS 1 tab by mouth daily MOXIFLO XACIN HCL 41388154883 No Longer Active Carlton Hu MD Active CHERATUSSIN AC 100-10 MG/5ML SYRP 1 tsp by mouth every 4 hours as needed for cough GUAIFENESIN-CODEINE 61508648905 No Longer Activ e Hugo Restrepo MD Active AVELOX 400 MG TABS 1 tab by mouth daily MOXIFLO XACIN HCL 12397918327 No Longer Active Marcy De La Rosa MD PhD Active TERBINAFINE HCL 250 MG TABS 1 qDay TERBINAF INE HCL 27712809603 No Longer Active Marcy De La Rosa MD PhD Active CHERATUSSIN AC 100-10 MG/5ML SYRP 1 tsp by mouth every 4 hours as needed for cough GUAIFENESIN-CODEINE 27730158216 No Longer Activ e Marcy De La Rosa MD PhD Active AVELOX 400 MG TABS 1 tab by mouth daily MOXIFLO XACIN HCL 12959692616 No Longer Active Marcy De La Rosa MD PhD Active HYDROCODONE-ACETAMINOPHEN 5-325 MG TABS 1 po q 6hr PRN cough 201 05/09/16 HYDROCODONE-ACETAMINOPHEN 25571687917 No Longer Active Marcy De La Rosa MD PhD Active PREDNISONE 20 MG TAB 2 tabs daily for 3 days, 1 t ab daily for 3 days, 1/2 tab daily for 2 days PREDNISONE 19770924755 No Longer Active Carlton Hu MD Active CEFDINIR 300 MG CAPS by mouth twice a day CEFDI ODILIA 07534792732 No Longer Active Carlton Hu MD Active ZOCOR 40 MG TAB 1 tab by mouth daily SIMVASTATIN 69172091656 Active Carlton Hu MD Active HYDROCHLOROTHIAZIDE 25 MG TABS 1 TAB PO DAILY H YDROCHLOROTHIAZIDE 10936234019 Active Carlton Hu MD Active ACETAMINOPHEN-CODEINE #3 300-30 MG TABS 1 tablet po q 4-6hrs prn pain ACETAMINOPHEN-CODEINE 42446439945 No Longer Active Ridge Bess DO Active ZITHROMAX 250 MG TAB 2 po today, then 1 po q days 2-5 AZITHROMYCIN 76314195232 No Longer Active Carlton Hu MD Acti ve CHERATUSSIN AC 100-10 MG/5ML SYRP take 1 tsp po q4-6 hours prn c ough GUAIFENESIN-CODEINE 90922545638 No Longer Active Carlton Hu MD Active ACETAMINOPHEN-CODEINE #3 300-30 MG TABS 1 PO Q 4-6 HR PRN PAIN 2 ACETAMINOPHEN-CODEINE 01578404342 No Longer Active Carlton rich MD Active LORTAB 7.5-500 MG/15ML ELIX 7.5 ml po q 4 hour prn cough HYDROCODONE-ACETAMINOPHEN 33697866244 No Longer Active Carlton Hu MD Active PREDNISONE 20 MG TAB 1 po bid 3 days, then 1 po q day 3 days 201 05/03/07 PREDNISONE 00518846701 No Longer Active Carlton Hu MD Active SYMBICORT 160-4.5 MCG/ACT AERO 2 puffs bid with rinse after BUDESONIDE-FORMOTEROL FUMARATE 19144702506 Active Carlton Hu MD Active ELMIRON 100 MG CAPS 2 tablets in the am and 1 tablet at hs PENTOSAN POLYSULFATE SODIUM 64233106440 Active Gracie Artesia Active CEFDINIR 300 MG CAPS by mouth twice a day CEFDI ODILIA 30325883363 No Longer Active Carlton Hu MD Active CEFDINIR 300 MG CAPS by mouth twice a day CEFDI ODILIA 71121327307 No Longer Active Carlton Hu MD Active CEFDINIR 300 MG CAPS by mouth twice a day CEFDI ODILIA 45649967432 No Longer Active Carlton Hu MD Active TESSALON PERLES 100 MG CAP 1 tablet by mouth 3 times daily a s needed for cough BENZONATATE 36046638119 No Longer Active Carlton bustamante MD Active CEFDINIR 300 MG CAPS by mouth twice a day CEFDI ODILIA 92276870427 No Longer Active Carlton Hu MD Active ZITHROMAX Z-REYNA 250 MG TABS 2 today, then 1 daily for 4 days 201 04/09/17 AZITHROMYCIN 67898931882 No Longer Active Hugo Restrepo MD Active PREMARIN 0.625 MG TABS TAKE 1 TAB BY MOUTH DAILY ESTROGENS CONJUGATED 43379141863 Active Carlton Hu MD Active LYRICA 75 MG CAPS TAKE 1 CAPSULE BY MOUTH TWICE DAILY PREGABALIN 41830602236 Active Carlton Hu MD Active TESSALON PERLES 100 MG CAP 1 tablet by mouth 3 times daily a s needed for cough TESSALON PERLES 100 MG CAP 202033 BENZONATATE I nactive PREDNISONE 20 MG TAB 1 po bid 3 days, then 1 po q day 3 days 201 05/03/07 PREDNISONE 20 MG TAB 521670 PREDNISONE Inactive LORTAB 7.5-500 MG/15ML ELIX 7.5 ml po q 4 hour prn cough LORTAB 7.5-500 MG/15ML ELIX HYDROCODONE-ACETAMINOPHEN Inacti ve ACETAMINOPHEN-CODEINE #3 300-30 MG TABS 1 PO Q 4-6 HR PRN PAIN 2 ACETAMINOPHEN-CODEINE #3 300-30 MG TABS 411341 ACETAMIN OPHEN-CODEINE Inactive CHERATUSSIN AC 100-10 MG/5ML SYRP take 1 tsp po q4-6 hours prn c ough CHERATUSSIN AC 100-10 MG/5ML SYRP 948382 GUAIFENESIN-CO DEINE Inactive ACETAMINOPHEN-CODEINE #3 300-30 MG TABS 1 tablet po q 4-6hrs prn pain ACETAMINOPHEN-CODEINE #3 300-30 MG TABS 029729 ACETAMIN OPHEN-CODEINE Inactive HYDROCODONE-ACETAMINOPHEN 5-325 MG TABS 1 po q 6hr PRN cough 201 05/09/16 HYDROCODONE-ACETAMINOPHEN 5-325 MG TABS 174696 HYDROCODONE-ACETAMINOPHEN Inactive AVELOX 400 MG TABS 1 tab by mouth daily A VELOX 400 MG TABS 766615 MOXIFLOXACIN HCL Inactive CHERATUSSIN AC 100-10 MG/5ML SYRP 1 tsp by mouth every 4 hours as needed for cough CHERATUSSIN AC 100-10 MG/5ML SYRP 325078 GUAIFENESIN-CODEINE Inactive TERBINAFINE HCL 250 MG TABS 1 qDay TERBINAFINE HCL 250 MG TABS 715882 TERBINAFINE HCL Inactive CHERATUSSIN AC 100-10 MG/5ML SYRP 1 tsp by mouth every 4 hours as needed for cough CHERATUSSIN AC 100-10 MG/5ML SYRP 773003 GUAIFENESIN-CODEINE Inactive ACETAMINOPHEN-CODEINE #3 300-30 MG TABS 1 PO Q 4-6 HRS PRN PAIN ACETAMINOPHEN-CODEINE #3 300-30 MG TABS 222743 ACETAMINOPHEN-CODEIN E Inactive CHERATUSSIN AC 100-10 MG/5ML SYRP 1 tsp by mouth every 4 hours as needed for cough CHERATUSSIN AC 100-10 MG/5ML SYRP 910866 GUAIFENESIN-CODEINE Inactive AUGMENTIN 875-125 MG TAB 1 tab by mouth twice daily with food 20 12/03/31 AUGMENTIN 875-125 MG TAB 230404 AMOXICILLIN-POT CLAVULA EFE Inactive CHERATUSSIN AC 100-10 MG/5ML SYRP take one tsp po Q 6hours prn c ough CHERATUSSIN AC 100-10 MG/5ML SYRP 328847 GUAIFENESIN-CO DEINE Inactive PROPRANOLOL HCL 60 MG TABS 1 PO Q D P ROPRANOLOL HCL 60 MG TABS 180538 PROPRANOLOL HCL Inactive TOPAMAX 50 MG TABS take 1 tab po BID for migraines. 12/07/10 TOPAMAX 50 MG TABS 518711 TOPIRAMATE Inactive TOPAMAX 25 MG TABS 1 qHS x 1 week, then 1 BID x 1 week, then 1 qAM and 2 qHS x 1 week, then 2 BID (migraine prevention) TOPAMAX 2 5 MG TABS 047020 TOPIRAMATE Inactive ZITHROMAX Z-REYNA 250 MG TABS 2 today, then 1 daily for 4 days 201 04/09/17 ZITHROMAX Z-REYNA 250 MG TABS 2690702 AZITHROMYCIN Inac tive CEFDINIR 300 MG CAPS by mouth twice a day CEFDINIR 300 MG CAPS 20020704 CEFDINIR Inactive CEFDINIR 300 MG CAPS by mouth twice a day CEFDINIR 300 MG CAPS 20020704 CEFDINIR Inactive CEFDINIR 300 MG CAPS by mouth twice a day CEFDINIR 300 MG CAPS 940411 CEFDINIR Inactive CEFDINIR 300 MG CAPS by mouth twice a day CEFDINIR 300 MG CAPS 20020704 CEFDINIR Inactive ZITHROMAX 250 MG TAB 2 po today, then 1 po q days 2-5 ZITHROMAX 250 MG TAB 3365836 AZITHROMYCIN Inactive CEFDINIR 300 MG CAPS by mouth twice a day CEFDINIR 300 MG CAPS 20020704 CEFDINIR Inactive PREDNISONE 20 MG TAB 2 tabs daily for 3 days, 1 t ab daily for 3 days, 1/2 tab daily for 2 days PREDNISONE 20 MG TAB 912172 PREDNISON E Inactive AVELOX 400 MG TABS 1 tab by mouth daily A VELOX 400 MG TABS 599400 MOXIFLOXACIN HCL Inactive AVELOX 400 MG TABS 1 tab by mouth daily A VELOX 400 MG TABS 763116 MOXIFLOXACIN HCL Inactive PREDNISONE 20 MG TAB Take 3 tabs daily for 3 days , 2 tabs daily for 3 days, 1 tab daily for 3 days, 1/2 tab daily for 3 days PREDNISONE 20 MG TAB 914855 PREDNISONE Inactive LEVAQUIN 500 MG TABS take one po QD LEVAQUIN 50 0 MG TABS 350973 LEVOFLOXACIN Inactive AZITHROMYCIN 250 MG TABS 2 po qd x 1 day, then 1 po qd x 4 days AZITHROMYCIN 250 MG TABS 8396209 AZITHROMYCIN Inactiv e MEDROL (REYNA) 4 MG TABS 6 tabs on day 1, 5 tabs on d ay 2, 4 tabs on day 3, 3 tabs on day 4, 2 tabs on day 5, 1 tab on day 6 MEDROL (REYNA) 4 MG TABS METHYLPREDNISOLONE Inactive CHERATUSSIN AC 100-10 MG/5ML SYRP 5ml po q6hr PRN Cough CHERATUSSIN AC 100-10 MG/5ML SYRP 367704 GUAIFENESIN-CODEINE Inacti ve TRIAMCINOLONE ACETONIDE 0.1 % CREA apply three times daily prn r beatrice TRIAMCINOLONE ACETONIDE 0.1 % CREA 1146610 TRIAMCINOLONE ACETONIDE Inactive Vital Signs Date Name [...] ... - Chemistry sodium, serum 143 mmol/L 284-813 8294/01/24 potassium, serum 4.1 mmol/L 3.5-5.2 chloride, serum [...] 0.60 mg/dL 0.00-1.00 cholesterol, serum 227 mg/dL 722-414 5864/01/24 triglyceride, serum, fasting 97 mg/dL 30-200 HDL [...] mg/dL Encounters Code Encounter Date Provider Facility CPT-76227 Level 3 Est. Patient 19:50:35 [employer] Carlton rich MD [facility] CPT-68837 Level 4 Est. Patient 18:05:01 [employer] Carlton rich MD [facility] CPT-52654 Level 3 Est. Patient 10:45:55 [employer] Hugo Restrepo MD [facility] CPT-72689 Level 3 Est. Patient 14:12:49 CDT Griffin HERNANDEZ [facility] CPT-23924 Level 3 Est. Patient 17:37:24 CDT Carlton rich MD [facility] CPT-22048 Level 3 Est. Patient 16:51:54 CDT Carlton rich MD [facility] CPT-57926 Level 3 Est. Patient 12:18:11 CDT Hugo Restrepo MD [facility] CPT-04226 Level 3 Est. Patient 11:30:25 CDT Marcy crisostomo MD PhD [facility] CPT-27992 Level 3 Est. Patient 12:00:47 [employer] Carlton rich MD [facility] CPT-66166 Level 3 Est. Patient 16:31:06 [employer] Carlton rich MD [facility] CPT-72965 Level 3 Est. Patient 16:23:24 [employer] Ridge tam [facility] CPT-02593 Level 3 Est. Patient 12:34:12 CDT Carlton rich MD [facility] CPT-70010 Level 2 Est. Patient 15:43:33 CDT Robi armstrong MD [facility] CPT-13061 Level 4 Est. Patient 14:04:44 CDT Carlton rich MD [facility] CPT-63161 Level 3 Est. Patient 05:47:59 CDT Ridge tam [facility] CPT-87359 Level 3 Est. Patient 13:12:53 [employer] Carlton rich MD [facility] CPT-57027 Level 3 Est. Patient 14:26:53 CDT Hugo Restrepo MD [facility] Procedures Code Procedure Name Date Entry Date Standard Desc ription CPT-16026 Abx/Therapy Injection 13:28:47 [employer] CPT-J2930 Solu Medrol 125 mg (Methyl Prednisolone Sodium Succinate) 12:00:47 [employer] CPT-65109 Venipuncture Draw Fee 11:33:31 CDT CPT-35458 EKG Trac and Interp 11:21:09 CDT CPT-47576 Chest 2V Frontal and Lat 11:21:09 CDT 12/15 CPT-47917 Venipuncture Draw Fee 08:02:34 CDT CPT-93009 Chest 2V Frontal and Lat 05:47:59 CDT 06/05
--- OUTSIDE RECORDS SUMMARY | 2019-10-08 10:24 | XMS REPORT | Clinical Summary ---
Author Author Caitlin, Juliana Martinez Organization [facility] Address Unknown Phone Unavailable Allergies, Adverse [...] daily x 10 days 20 13/03/08 AMOXICILLIN [id number] No Longer Active Carlton Hu MD Active CHERATUSSIN AC 100-10 MG/5ML SYRP 1 tsp by mouth every 4 hours as needed for cough GUAIFENESIN-CODEINE 70582483348 Active Carlton banks MD Active CYCLOBENZAPRINE HCL 10 MG TABS 1 tablet by mouth BID prn had pain 2 CYCLOBENZAPRINE HCL 01627007207 Active Carlton Hu MD A ctive PROMETHAZINE-CODEINE 6.25-10 MG/5ML SYRP 1 tsp by mouth ever y 8 hours prn cough PROMETHAZINE-CODEINE 93945684413 No Longer Active Robert Hu MD Active MEDROL (REYNA) 4 MG TABS 6 pills x 1 day, then 5 pill s x 1 day then 4 pills x 1 day, then 3 pills x 1 day, then 2 pills x 1 day, then 1 pill x 1 day, then stop METHYLPREDNISOLONE 84474418119 No Longer Active Parris Mora MD Active AZITHROMYCIN 250 MG TABS 2 po qd x 1 day, then 1 po qd x 4 days AZITHROMYCIN 60556450083 No Longer Active Perez Mora MD Active SYMBICORT 160-4.5 MCG/ACT AERO 2 puffs bid with rinse after 2011 BUDESONIDE-FORMOTEROL FUMARATE 40949041144 No Longer Active Perez Mora MD Active LYRICA 75 MG CAPS TAKE 1 CAPSULE BY MOUTH TWICE DAILY 2013 PREGABALIN 20216490610 No Longer Active Carlton Hu MD Active LYRICA 100 MG CAPS Take 1 tab po BID for fibromyalgia PREGABALIN 99181675605 Active Carlton Hu MD Active TOPAMAX 25 MG TABS 1 qHS x 1 week, then 1 BID x 1 week, then 1 qAM and 2 qHS x 1 week, then 2 BID (migraine prevention) TOPIRAMAT E 08964275777 No Longer Active Jerica Goeringer RMA Active TOPAMAX 50 MG TABS take 1 tab po BID for migraines. 12/07/10 TOPIRAMATE 36585591976 No Longer Active Jerica Goeringer RMA Ac tive TOPAMAX 100 MG TABS Take 1 tablet po bid TOPIRAMATE 4999 3135190 Active Carlton Hu MD Active TRIAMCINOLONE ACETONIDE 0.1 % CREA apply three times daily prn r beatrice TRIAMCINOLONE ACETONIDE 29761116877 No Longer Active Carlton Hu MD Active PAXIL 40 MG TAB take 1 tab po qday for depression PAROXETINE HCL 61156674831 Active Carlton Hu MD Active CYMBALTA 30 MG CPEP 1 cap by mouth daily DULOXE SNEHA HCL 35500721100 Active Carlton Hu MD Active CHERATUSSIN AC 100-10 MG/5ML SYRP 5ml po q6hr PRN Cough GUAIFENESIN-CODEINE 27533080462 No Longer Active Carlton Hu MD Active MEDROL (REYNA) 4 MG TABS 6 tabs on day 1, 5 tabs on d ay 2, 4 tabs on day 3, 3 tabs on day 4, 2 tabs on day 5, 1 tab on day 6 METHYLPREDNISOLONE 92714676995 No Longer Active Perez Mora MD Active AZITHROMYCIN 250 MG TABS 2 po qd x 1 day, then 1 po qd x 4 days AZITHROMYCIN 06452471266 No Longer Active Perez Mora MD Active PROPRANOLOL HCL 60 MG TABS 1 PO Q D PROPRANOL OL HCL 40266037101 No Longer Active Perez Mora MD Active CHERATUSSIN AC 100-10 MG/5ML SYRP take one tsp po Q 6hours prn c ough GUAIFENESIN-CODEINE 31930176771 No Longer Active Perez Means Active AUGMENTIN 875-125 MG TAB 1 tab by mouth twice daily with food 12/03/31 AMOXICILLIN-POT CLAVULANATE 97995189862 No Longer Active Chanel Mora MD Active CHERATUSSIN AC 100-10 MG/5ML SYRP 1 tsp by mouth every 4 hours as needed for cough GUAIFENESIN-CODEINE 14478390835 No Longer Activ e Hugo Restrepo MD Active ACETAMINOPHEN-CODEINE #3 300-30 MG TABS 1 PO Q 4-6 HRS PRN PAIN ACETAMINOPHEN-CODEINE 43652282214 No Longer Active Hugo Restrepo MD Active LEVAQUIN 500 MG TABS take one po QD LEVOFLOXACI N 74874177267 No Longer Active Griffin HERNANDEZ Active PREDNISONE 20 MG TAB Take 3 tabs daily for 3 days , 2 tabs daily for 3 days, 1 tab daily for 3 days, 1/2 tab daily for 3 days P REDNISONE 65830601035 No Longer Active Carlton Hu MD Active AVELOX 400 MG TABS 1 tab by mouth daily MOXIFLO XACIN HCL 08007120051 No Longer Active Carlton Hu MD Active CHERATUSSIN AC 100-10 MG/5ML SYRP 1 tsp by mouth every 4 hours as needed for cough GUAIFENESIN-CODEINE 42276722031 No Longer Activ e Hugo Restrepo MD Active AVELOX 400 MG TABS 1 tab by mouth daily MOXIFLO XACIN HCL 76325318279 No Longer Active Marcy De La Rosa MD PhD Active TERBINAFINE HCL 250 MG TABS 1 qDay TERBINAF INE HCL 23877147869 No Longer Active Marcy De La Rosa MD PhD Active CHERATUSSIN AC 100-10 MG/5ML SYRP 1 tsp by mouth every 4 hours as needed for cough GUAIFENESIN-CODEINE 58948447101 No Longer Activ e Marcy De La Rosa MD PhD Active AVELOX 400 MG TABS 1 tab by mouth daily MOXIFLO XACIN HCL 96109531526 No Longer Active Marcy De La Rosa MD PhD Active HYDROCODONE-ACETAMINOPHEN 5-325 MG TABS 1 po q 6hr PRN cough 201 05/09/16 HYDROCODONE-ACETAMINOPHEN 85347357982 No Longer Active Marcy De La Rosa MD PhD Active PREDNISONE 20 MG TAB 2 tabs daily for 3 days, 1 t ab daily for 3 days, 1/2 tab daily for 2 days PREDNISONE 46455948031 No Longer Active Carlton Hu MD Active CEFDINIR 300 MG CAPS by mouth twice a day CEFDI ODILIA 77489155775 No Longer Active Carlton Hu MD Active ZOCOR 40 MG TAB 1 tab by mouth daily SIMVASTATIN 29974277889 Active Carlton Hu MD Active HYDROCHLOROTHIAZIDE 25 MG TABS 1 TAB PO DAILY H YDROCHLOROTHIAZIDE 89973842352 Active Carlton Hu MD Active ACETAMINOPHEN-CODEINE #3 300-30 MG TABS 1 tablet po q 4-6hrs prn pain ACETAMINOPHEN-CODEINE 85940537415 No Longer Active Ridge Bess DO Active ZITHROMAX 250 MG TAB 2 po today, then 1 po q days 2-5 AZITHROMYCIN 70004466495 No Longer Active Carlton Hu MD Acti ve CHERATUSSIN AC 100-10 MG/5ML SYRP take 1 tsp po q4-6 hours prn c ough GUAIFENESIN-CODEINE 13792394526 No Longer Active Carlton Hu MD Active ACETAMINOPHEN-CODEINE #3 300-30 MG TABS 1 PO Q 4-6 HR PRN PAIN 2 ACETAMINOPHEN-CODEINE 56167476603 No Longer Active Carlton rich MD Active LORTAB 7.5-500 MG/15ML ELIX 7.5 ml po q 4 hour prn cough HYDROCODONE-ACETAMINOPHEN 02439152286 No Longer Active Carlton Hu MD Active PREDNISONE 20 MG TAB 1 po bid 3 days, then 1 po q day 3 days 201 05/03/07 PREDNISONE 27538133790 No Longer Active Carlton Hu MD Active ELMIRON 100 MG CAPS 2 tablets in the am and 1 tablet at hs PENTOSAN POLYSULFATE SODIUM 63295296983 Active Gracie [place] Active CEFDINIR 300 MG CAPS by mouth twice a day CEFDI ODILIA 58411204705 No Longer Active Carlton Hu MD Active CEFDINIR 300 MG CAPS by mouth twice a day CEFDI ODILIA 66565725567 No Longer Active Carlton Hu MD Active CEFDINIR 300 MG CAPS by mouth twice a day CEFDI ODILIA 09159103886 No Longer Active Carlton Hu MD Active TESSALON PERLES 100 MG CAP 1 tablet by mouth 3 times daily a s needed for cough BENZONATATE 61173540596 No Longer Active Carlton bustamante MD Active CEFDINIR 300 MG CAPS by mouth twice a day CEFDI ODILIA 26384883487 No Longer Active Carlton Hu MD Active ZITHROMAX Z-REYNA 250 MG TABS 2 today, then 1 daily for 4 days 201 04/09/17 AZITHROMYCIN 00978376392 No Longer Active Hugo Restrepo MD Active PREMARIN 0.625 MG TABS TAKE 1 TAB BY MOUTH DAILY ESTROGENS CONJUGATED 23253114403 Active Carlton Hu MD Active TESSALON PERLES 100 MG CAP 1 tablet by mouth 3 times daily a s needed for cough TESSALON PERLES 100 MG CAP 980805 BENZONATATE I nactive PREDNISONE 20 MG TAB 1 po bid 3 days, then 1 po q day 3 days 201 05/03/07 PREDNISONE 20 MG TAB 821742 PREDNISONE Inactive LORTAB 7.5-500 MG/15ML ELIX 7.5 ml po q 4 hour prn cough LORTAB 7.5-500 MG/15ML ELIX HYDROCODONE-ACETAMINOPHEN Inacti ve ACETAMINOPHEN-CODEINE #3 300-30 MG TABS 1 PO Q 4-6 HR PRN PAIN 2 ACETAMINOPHEN-CODEINE #3 300-30 MG TABS 047700 ACETAMIN OPHEN-CODEINE Inactive CHERATUSSIN AC 100-10 MG/5ML SYRP take 1 tsp po q4-6 hours prn c ough CHERATUSSIN AC 100-10 MG/5ML SYRP 225372 GUAIFENESIN-CO DEINE Inactive ACETAMINOPHEN-CODEINE #3 300-30 MG TABS 1 tablet po q 4-6hrs prn pain ACETAMINOPHEN-CODEINE #3 300-30 MG TABS 574666 ACETAMIN OPHEN-CODEINE Inactive HYDROCODONE-ACETAMINOPHEN 5-325 MG TABS 1 po q 6hr PRN cough 201 05/09/16 HYDROCODONE-ACETAMINOPHEN 5-325 MG TABS 523154 HYDROCODONE-ACETAMINOPHEN Inactive AVELOX 400 MG TABS 1 tab by mouth daily A VELOX 400 MG TABS 603084 MOXIFLOXACIN HCL Inactive CHERATUSSIN AC 100-10 MG/5ML SYRP 1 tsp by mouth every 4 hours as needed for cough CHERATUSSIN AC 100-10 MG/5ML SYRP 103169 GUAIFENESIN-CODEINE Inactive TERBINAFINE HCL 250 MG TABS 1 qDay TERBINAFINE HCL 250 MG TABS 468302 TERBINAFINE HCL Inactive CHERATUSSIN AC 100-10 MG/5ML SYRP 1 tsp by mouth every 4 hours as needed for cough CHERATUSSIN AC 100-10 MG/5ML SYRP 997912 GUAIFENESIN-CODEINE Inactive ACETAMINOPHEN-CODEINE #3 300-30 MG TABS 1 PO Q 4-6 HRS PRN PAIN ACETAMINOPHEN-CODEINE #3 300-30 MG TABS 734173 ACETAMINOPHEN-CODEIN E Inactive CHERATUSSIN AC 100-10 MG/5ML SYRP 1 tsp by mouth every 4 hours as needed for cough CHERATUSSIN AC 100-10 MG/5ML SYRP 224986 GUAIFENESIN-CODEINE Inactive AUGMENTIN 875-125 MG TAB 1 tab by mouth twice daily with food 20 12/03/31 AUGMENTIN 875-125 MG TAB 431172 AMOXICILLIN-POT CLAVULA EFE Inactive CHERATUSSIN AC 100-10 MG/5ML SYRP take one tsp po Q 6hours prn c ough CHERATUSSIN AC 100-10 MG/5ML SYRP 584545 GUAIFENESIN-CO DEINE Inactive PROPRANOLOL HCL 60 MG TABS 1 PO Q D P ROPRANOLOL HCL 60 MG TABS 520216 PROPRANOLOL HCL Inactive TOPAMAX 50 MG TABS take 1 tab po BID for migraines. 20 12/07/10 TOPAMAX 50 MG TABS 891295 TOPIRAMATE Inactive TOPAMAX 25 MG TABS 1 qHS x 1 week, then 1 BID x 1 week, then 1 qAM and 2 qHS x 1 week, then 2 BID (migraine prevention) TOPAMAX 2 5 MG TABS 275995 TOPIRAMATE Inactive LYRICA 75 MG CAPS TAKE 1 CAPSULE BY MOUTH TWICE DAILY LYRICA 75 MG CAPS PREGABALIN Inactive SYMBICORT 160-4.5 MCG/ACT AERO 2 puffs bid with rinse after 2011 SYMBICORT 160-4.5 MCG/ACT AERO BUDESONIDE-FORMOT SÁNCHEZ FUMARATE Inactive PROMETHAZINE-CODEINE 6.25-10 MG/5ML SYRP 1 tsp by mouth ever y 8 hours prn cough PROMETHAZINE-CODEINE 6.25-10 MG/5ML SYRP 001697 PROMETHAZINE-CODEINE Inactive ZITHROMAX Z-REYNA 250 MG TABS 2 today, then 1 daily for 4 days 201 04/09/17 ZITHROMAX Z-REYNA 250 MG TABS 7618581 AZITHROMYCIN Inac tive CEFDINIR 300 MG CAPS by mouth twice a day CEFDINIR 300 MG CAPS 822807 CEFDINIR Inactive CEFDINIR 300 MG CAPS by mouth twice a day CEFDINIR 300 MG CAPS 20020704 CEFDINIR Inactive CEFDINIR 300 MG CAPS by mouth twice a day CEFDINIR 300 MG CAPS 20020704 CEFDINIR Inactive CEFDINIR 300 MG CAPS by mouth twice a day CEFDINIR 300 MG CAPS 049617 CEFDINIR Inactive ZITHROMAX 250 MG TAB 2 po today, then 1 po q days 2-5 ZITHROMAX 250 MG TAB 1267841 AZITHROMYCIN Inactive CEFDINIR 300 MG CAPS by mouth twice a day CEFDINIR 300 MG CAPS 20020704 CEFDINIR Inactive PREDNISONE 20 MG TAB 2 tabs daily for 3 days, 1 t ab daily for 3 days, 1/2 tab daily for 2 days PREDNISONE 20 MG TAB 649055 PREDNISON E Inactive AVELOX 400 MG TABS 1 tab by mouth daily A VELOX 400 MG TABS 008893 MOXIFLOXACIN HCL Inactive AVELOX 400 MG TABS 1 tab by mouth daily A VELOX 400 MG TABS 628924 MOXIFLOXACIN HCL Inactive PREDNISONE 20 MG TAB Take 3 tabs daily for 3 days , 2 tabs daily for 3 days, 1 tab daily for 3 days, 1/2 tab daily for 3 days PREDNISONE 20 MG TAB 431432 PREDNISONE Inactive LEVAQUIN 500 MG TABS take one po QD LEVAQUIN 50 0 MG TABS 977526 LEVOFLOXACIN Inactive AZITHROMYCIN 250 MG TABS 2 po qd x 1 day, then 1 po qd x 4 days AZITHROMYCIN 250 MG TABS 6235161 AZITHROMYCIN Inactiv e MEDROL (REYNA) 4 MG TABS 6 tabs on day 1, 5 tabs on d ay 2, 4 tabs on day 3, 3 tabs on day 4, 2 tabs on day 5, 1 tab on day 6 MEDROL (RENYA) 4 MG TABS METHYLPREDNISOLONE Inactive CHERATUSSIN AC 100-10 MG/5ML SYRP 5ml po q6hr PRN Cough CHERATUSSIN AC 100-10 MG/5ML SYRP 199922 GUAIFENESIN-CODEINE Inacti ve TRIAMCINOLONE ACETONIDE 0.1 % CREA apply three times daily prn r beatrice TRIAMCINOLONE ACETONIDE 0.1 % CREA 6605016 TRIAMCINOLONE ACETONIDE Inactive AZITHROMYCIN 250 MG TABS 2 po qd x 1 day, then 1 po qd x 4 days AZITHROMYCIN 250 MG TABS 3818851 AZITHROMYCIN Inactiv e MEDROL (REYNA) 4 MG [...] days 20 13/03/08 AMOXICILLIN 500 MG CAP 706945 AMOXICILLIN Inactive Vital Signs Date Name Value [...] - 3141-9 151.19 [lb_av] Weigh t Measured Diagnostic Results Date Name Value Unit Range Description Lab Report: CBC, Comp. Metabolic Panel, Lipid Panel, Thyroid Stimulating ... - Chemistry sodium, serum 143 mmol/L 764-758 8734/01/24 potassium, serum 4.1 mmol/L 3.5-5.2 chloride, serum [...] 0.60 mg/dL 0.00-1.00 cholesterol, serum 227 mg/dL 902-333 7963/01/24 triglyceride, serum, fasting 97 mg/dL 30-200 HDL [...] mg/dL Encounters Code Encounter Date Provider Facility CPT-11614 Level 3 Est. Patient 10:03:07 CDT Perez Mora MD [facility] CPT-58289 Level 3 Est. Patient 19:50:35 HEATER MECHANIC Carlton rich MD [facility] CPT-75826 Level 4 Est. Patient 18:05:01 HEATER MECHANIC Carlton rich MD [facility] CPT-29985 Level 3 Est. Patient 10:45:55 HEATER MECHANIC Hugo Restrepo MD [facility] CPT-02561 Level 3 Est. Patient 14:12:49 [address] [facility] CPT-51153 Level 3 Est. Patient 17:37:24 CDT Carlton rich MD [facility] CPT-03376 Level 3 Est. Patient 16:51:54 CDT Carlton rich MD [facility] CPT-76858 Level 3 Est. Patient 12:18:11 CDT Hugo Restrepo MD [facility] CPT-55770 Level 3 Est. Patient 11:30:25 CDT Marcy crisostomo MD, PhD [facility] CPT-67053 Level 3 Est. Patient 12:00:47 HEATER MECHANIC Carlton rich MD [facility] CPT-78637 Level 3 Est. Patient 16:31:06 HEATER MECHANIC Carlton rich MD [facility] CPT-14994 Level 3 Est. Patient 16:23:24 HEATER MECHANIC Ridge tam DO [facility] CPT-45646 Level 3 Est. Patient 12:34:12 CDT Carlton rich MD [facility] CPT-72682 Level 2 Est. Patient 15:43:33 CDT Robi armstrong MD [facility] CPT-66493 Level 4 Est. Patient 14:04:44 CDT [address] rich MD [facility] CPT-92926 Level 3 Est. Patient 05:47:59 CDT Ridge tam DO [facility] CPT-22817 Level 3 Est. Patient 13:12:53 HEATER MECHANIC Carlton rich MD [facility] CPT-92657 Level 3 Est. Patient 14:26:53 CDT Hugo Restrepo MD [facility] Procedures Code Procedure Name Date Entry Date Standard Desc ription CPT-58659 Fluzone Quadrivalent Intramuscular Suspe nsion 0.5 ML 14:31:55 CDT CPT-58624 Abx/Therapy Injection 13:28:47 HEATER MECHANIC CPT-J2930 Solu Medrol 125 mg (Methyl Prednisolone Sodium Succinate) 12:00:47 HEATER MECHANIC CPT-90316 Venipuncture Draw Fee 11:33:31 CDT CPT-99857 EKG Trac and Interp 11:21:09 CDT CPT-96716 Chest 2V Frontal and Lat 11:21:09 CDT 12/15 CPT-61209 Venipuncture Draw Fee 08:02:34 CDT CPT-92770 Chest 2V Frontal and Lat 05:47:59 CDT 06/05
--- OUTSIDE RECORDS SUMMARY | 2019-10-08 10:25 | XMS REPORT | Clinical Summary ---
[...] PhD PNEUMONIA ICD-486 Inactive Marcy De La oRsa MD PhD 201 06/01/09 SINUSITIS ICD-473.9 Inactive Marcy De La Rosa MD Ph D CONTACT DERMATITIS ICD-692.9 Inactive Marcy crisostomo MD PhD SINUSITIS, ACUTE ICD-461.9 Inactive Hugo dominguez MD Medication List Medication Instructions Start Date Stop Date Generic Name NDC Status Provider Patient Instruction CYCLOBENZAPRINE HCL 10 MG TABS 1 tablet by mouth BID prn had pain 2 CYCLOBENZAPRINE HCL 31405926429 Active Carlton Hu MD A ctive PROMETHAZINE-CODEINE 6.25-10 MG/5ML SYRP 1 tsp by mouth ever y 8 hours prn cough PROMETHAZINE-CODEINE 29058190141 No Longer Active Robert Hu MD Active MEDROL (REYNA) 4 MG TABS 6 pills x 1 day, then 5 pill s x 1 day then 4 pills x 1 day, then 3 pills x 1 day, then 2 pills x 1 day, then 1 pill x 1 day, then stop METHYLPREDNISOLONE 44090487202 No Longer Active Parris Mora MD Active AZITHROMYCIN 250 MG TABS 2 po qd x 1 day, then 1 po qd x 4 days AZITHROMYCIN 60872270933 No Longer Active Perez Mora MD Active SYMBICORT 160-4.5 MCG/ACT AERO 2 puffs bid with rinse after 2011 BUDESONIDE-FORMOTEROL FUMARATE [id number] No Longer Active Perez Mora MD Active LYRICA 75 MG CAPS TAKE 1 CAPSULE BY MOUTH TWICE DAILY 2013 PREGABALIN 18638940611 No Longer Active Carlton Hu MD Active LYRICA 100 MG CAPS Take 1 tab po BID for fibromyalgia PREGABALIN 36514570537 Active Carlton Hu MD Active TOPAMAX 25 MG TABS 1 qHS x 1 week, then 1 BID x 1 week, then 1 qAM and 2 qHS x 1 week, then 2 BID (migraine prevention) TOPIRAMAT E 79232756019 No Longer Active Jerica FUENTES Active TOPAMAX 50 MG TABS take 1 tab po BID for migraines. 12/07/10 TOPIRAMATE 44782130466 No Longer Active Jerica FUENTES Ac tive TOPAMAX 100 MG TABS Take 1 tablet po bid TOPIRAMATE 4999 4795139 Active Carlton Hu MD Active TRIAMCINOLONE ACETONIDE 0.1 % CREA apply three times daily prn r beatrice TRIAMCINOLONE ACETONIDE 32154740085 No Longer Active Carlton Hu MD Active PAXIL 40 MG TAB take 1 tab po qday for depression PAROXETINE HCL 03954677856 Active Carlton Hu MD Active CYMBALTA 30 MG CPEP 1 cap by mouth daily DULOXE SNEHA HCL 78136063804 Active Carlton Hu MD Active CHERATUSSIN AC 100-10 MG/5ML SYRP 5ml po q6hr PRN Cough GUAIFENESIN-CODEINE 61524254234 No Longer Active Carlton Hu MD Active MEDROL (REYNA) 4 MG TABS 6 tabs on day 1, 5 tabs on d ay 2, 4 tabs on day 3, 3 tabs on day 4, 2 tabs on day 5, 1 tab on day 6 METHYLPREDNISOLONE 01525177206 No Longer Active Perez Mora MD Active AZITHROMYCIN 250 MG TABS 2 po qd x 1 day, then 1 po qd x 4 days AZITHROMYCIN 64506160288 No Longer Active Perez Mora MD Active PROPRANOLOL HCL 60 MG TABS 1 PO Q D PROPRANOL OL HCL 20620035555 No Longer Active Perez Mora MD Active CHERATUSSIN AC 100-10 MG/5ML SYRP take one tsp po Q 6hours prn c ough GUAIFENESIN-CODEINE 68039588603 No Longer Active Perez Means Active AUGMENTIN 875-125 MG TAB 1 tab by mouth twice daily with food 20 12/03/31 AMOXICILLIN-POT CLAVULANATE 93800602289 No Longer Active Chanel Mora MD Active CHERATUSSIN AC 100-10 MG/5ML SYRP 1 tsp by mouth every 4 hours as needed for cough GUAIFENESIN-CODEINE 87316057161 No Longer Activ e Hugo Restrepo MD Active ACETAMINOPHEN-CODEINE #3 300-30 MG TABS 1 PO Q 4-6 HRS PRN PAIN ACETAMINOPHEN-CODEINE 98135894875 No Longer Active Hugo Restrepo MD Active LEVAQUIN 500 MG TABS take one po QD LEVOFLOXACI N 18369318609 No Longer Active Griffin HERNANDEZ Active PREDNISONE 20 MG TAB Take 3 tabs daily for 3 days , 2 tabs daily for 3 days, 1 tab daily for 3 days, 1/2 tab daily for 3 days P REDNISONE 83737775921 No Longer Active Carlton Hu MD Active AVELOX 400 MG TABS 1 tab by mouth daily MOXIFLO XACIN HCL 44314569938 No Longer Active Carlton Hu MD Active CHERATUSSIN AC 100-10 MG/5ML SYRP 1 tsp by mouth every 4 hours as needed for cough GUAIFENESIN-CODEINE 85805951858 No Longer Activ e Hugo Restrepo MD Active AVELOX 400 MG TABS 1 tab by mouth daily MOXIFLO XACIN HCL 43078084553 No Longer Active Marcy De La Rosa MD PhD Active TERBINAFINE HCL 250 MG TABS 1 qDay TERBINAF INE HCL 34185553414 No Longer Active Marcy De La Rosa MD PhD Active CHERATUSSIN AC 100-10 MG/5ML SYRP 1 tsp by mouth every 4 hours as needed for cough GUAIFENESIN-CODEINE 30780650451 No Longer Activ e Marcy De La Rosa MD PhD Active AVELOX 400 MG TABS 1 tab by mouth daily MOXIFLO XACIN HCL 86654373948 No Longer Active Marcy De La Rosa MD PhD Active HYDROCODONE-ACETAMINOPHEN 5-325 MG TABS 1 po q 6hr PRN cough 201 05/09/16 HYDROCODONE-ACETAMINOPHEN 41974531833 No Longer Active Marcy De La Rosa MD PhD Active PREDNISONE 20 MG TAB 2 tabs daily for 3 days, 1 t ab daily for 3 days, 1/2 tab daily for 2 days PREDNISONE 86911750585 No Longer Active Carlton Hu MD Active CEFDINIR 300 MG CAPS by mouth twice a day CEFDI ODILIA 76778080491 No Longer Active Carlton Hu MD Active ZOCOR 40 MG TAB 1 tab by mouth daily SIMVASTATIN 78126713616 Active Carlton Hu MD Active HYDROCHLOROTHIAZIDE 25 MG TABS 1 TAB PO DAILY H YDROCHLOROTHIAZIDE 15426757604 Active Carlton Hu MD Active ACETAMINOPHEN-CODEINE #3 300-30 MG TABS 1 tablet po q 4-6hrs prn pain ACETAMINOPHEN-CODEINE 83573304712 No Longer Active Ridge Bess DO Active ZITHROMAX 250 MG TAB 2 po today, then 1 po q days 2-5 AZITHROMYCIN 19938396777 No Longer Active Carlton Hu MD Acti ve CHERATUSSIN AC 100-10 MG/5ML SYRP take 1 tsp po q4-6 hours prn c ough GUAIFENESIN-CODEINE 59615549632 No Longer Active Carlton Hu MD Active ACETAMINOPHEN-CODEINE #3 300-30 MG TABS 1 PO Q 4-6 HR PRN PAIN 2 ACETAMINOPHEN-CODEINE 61819113817 No Longer Active Carlton rich MD Active LORTAB 7.5-500 MG/15ML ELIX 7.5 ml po q 4 hour prn cough HYDROCODONE-ACETAMINOPHEN 92426600283 No Longer Active Carlton Hu MD Active PREDNISONE 20 MG TAB 1 po bid 3 days, then 1 po q day 3 days 201 05/03/07 PREDNISONE 15436479201 No Longer Active Carlton Hu MD Active ELMIRON 100 MG CAPS 2 tablets in the am and 1 tablet at hs PENTOSAN POLYSULFATE SODIUM 85062653899 Active Gracie Shawnee Active CEFDINIR 300 MG CAPS by mouth twice a day CEFDI ODILIA 18411878969 No Longer Active Carlton Hu MD Active CEFDINIR 300 MG CAPS by mouth twice a day CEFDI ODILIA 77064035906 No Longer Active Carlton Hu MD Active CEFDINIR 300 MG CAPS by mouth twice a day CEFDI ODILIA 98367826157 No Longer Active Carlton Hu MD Active TESSALON PERLES 100 MG CAP 1 tablet by mouth 3 times daily a s needed for cough BENZONATATE 52536119829 No Longer Active Carlton bustamante MD Active CEFDINIR 300 MG CAPS by mouth twice a day CEFDI ODILIA 18640590571 No Longer Active Carlton Hu MD Active ZITHROMAX Z-REYNA 250 MG TABS 2 today, then 1 daily for 4 days 201 04/09/17 AZITHROMYCIN 45736362186 No Longer Active Hugo Restrepo MD Active PREMARIN 0.625 MG TABS TAKE 1 TAB BY MOUTH DAILY ESTROGENS CONJUGATED 14209784563 Active Carlton Hu MD Active TESSALON PERLES 100 MG CAP 1 tablet by mouth 3 times daily a s needed for cough TESSALON PERLES 100 MG CAP 778645 BENZONATATE I nactive PREDNISONE 20 MG TAB 1 po bid 3 days, then 1 po q day 3 days 201 05/03/07 PREDNISONE 20 MG TAB 375611 PREDNISONE Inactive LORTAB 7.5-500 MG/15ML ELIX 7.5 ml po q 4 hour prn cough LORTAB 7.5-500 MG/15ML ELIX HYDROCODONE-ACETAMINOPHEN Inacti ve ACETAMINOPHEN-CODEINE #3 300-30 MG TABS 1 PO Q 4-6 HR PRN PAIN 2 ACETAMINOPHEN-CODEINE #3 300-30 MG TABS 583230 ACETAMIN OPHEN-CODEINE Inactive CHERATUSSIN AC 100-10 MG/5ML SYRP take 1 tsp po q4-6 hours prn c ough CHERATUSSIN AC 100-10 MG/5ML SYRP 650697 GUAIFENESIN-CO DEINE Inactive ACETAMINOPHEN-CODEINE #3 300-30 MG TABS 1 tablet po q 4-6hrs prn pain ACETAMINOPHEN-CODEINE #3 300-30 MG TABS 205773 ACETAMIN OPHEN-CODEINE Inactive HYDROCODONE-ACETAMINOPHEN 5-325 MG TABS 1 po q 6hr PRN cough 201 05/09/16 HYDROCODONE-ACETAMINOPHEN 5-325 MG TABS 826527 HYDROCODONE-ACETAMINOPHEN Inactive AVELOX 400 MG TABS 1 tab by mouth daily A VELOX 400 MG TABS 315265 MOXIFLOXACIN HCL Inactive CHERATUSSIN AC 100-10 MG/5ML SYRP 1 tsp by mouth every 4 hours as needed for cough CHERATUSSIN AC 100-10 MG/5ML SYRP 434459 GUAIFENESIN-CODEINE Inactive TERBINAFINE HCL 250 MG TABS 1 qDay TERBINAFINE HCL 250 MG TABS 951821 TERBINAFINE HCL Inactive CHERATUSSIN AC 100-10 MG/5ML SYRP 1 tsp by mouth every 4 hours as needed for cough CHERATUSSIN AC 100-10 MG/5ML SYRP 492301 GUAIFENESIN-CODEINE Inactive ACETAMINOPHEN-CODEINE #3 300-30 MG TABS 1 PO Q 4-6 HRS PRN PAIN ACETAMINOPHEN-CODEINE #3 300-30 MG TABS 724260 ACETAMINOPHEN-CODEIN E Inactive CHERATUSSIN AC 100-10 MG/5ML SYRP 1 tsp by mouth every 4 hours as needed for cough CHERATUSSIN AC 100-10 MG/5ML SYRP 640866 GUAIFENESIN-CODEINE Inactive AUGMENTIN 875-125 MG TAB 1 tab by mouth twice daily with food 20 12/03/31 AUGMENTIN 875-125 MG TAB 769265 AMOXICILLIN-POT CLAVULA EFE Inactive CHERATUSSIN AC 100-10 MG/5ML SYRP take one tsp po Q 6hours prn c ough CHERATUSSIN AC 100-10 MG/5ML SYRP 036590 GUAIFENESIN-CO DEINE Inactive PROPRANOLOL HCL 60 MG TABS 1 PO Q D P ROPRANOLOL HCL 60 MG TABS 397697 PROPRANOLOL HCL Inactive TOPAMAX 50 MG TABS take 1 tab po BID for migraines. 12/07/10 TOPAMAX 50 MG TABS 048611 TOPIRAMATE Inactive TOPAMAX 25 MG TABS 1 qHS x 1 week, then 1 BID x 1 week, then 1 qAM and 2 qHS x 1 week, then 2 BID (migraine prevention) TOPAMAX 2 5 MG TABS 766832 TOPIRAMATE Inactive LYRICA 75 MG CAPS TAKE 1 CAPSULE BY MOUTH TWICE DAILY LYRICA 75 MG CAPS PREGABALIN Inactive SYMBICORT 160-4.5 MCG/ACT AERO 2 puffs bid with rinse after 2011 SYMBICORT 160-4.5 MCG/ACT AERO BUDESONIDE-FORMOT SÁNCHEZ FUMARATE Inactive PROMETHAZINE-CODEINE 6.25-10 MG/5ML SYRP 1 tsp by mouth ever y 8 hours prn cough PROMETHAZINE-CODEINE 6.25-10 MG/5ML SYRP 283538 PROMETHAZINE-CODEINE Inactive ZITHROMAX Z-REYNA 250 MG TABS 2 today, then 1 daily for 4 days 201 04/09/17 ZITHROMAX Z-REYNA 250 MG TABS 2725931 AZITHROMYCIN Inac tive CEFDINIR 300 MG CAPS by mouth twice a day CEFDINIR 300 MG CAPS 20020704 CEFDINIR Inactive CEFDINIR 300 MG CAPS by mouth twice a day CEFDINIR 300 MG CAPS 999839 CEFDINIR Inactive CEFDINIR 300 MG CAPS by mouth twice a day CEFDINIR 300 MG CAPS 287356 CEFDINIR Inactive CEFDINIR 300 MG CAPS by mouth twice a day CEFDINIR 300 MG CAPS 890651 CEFDINIR Inactive ZITHROMAX 250 MG TAB 2 po today, then 1 po q days 2-5 ZITHROMAX 250 MG TAB 3796970 AZITHROMYCIN Inactive CEFDINIR 300 MG CAPS by mouth twice a day CEFDINIR 300 MG CAPS 20020704 CEFDINIR Inactive PREDNISONE 20 MG TAB 2 tabs daily for 3 days, 1 t ab daily for 3 days, 1/2 tab daily for 2 days PREDNISONE 20 MG TAB 969336 PREDNISON E Inactive AVELOX 400 MG TABS 1 tab by mouth daily A VELOX 400 MG TABS 442002 MOXIFLOXACIN HCL Inactive AVELOX 400 MG TABS 1 tab by mouth daily A VELOX 400 MG TABS 259987 MOXIFLOXACIN HCL Inactive PREDNISONE 20 MG TAB Take 3 tabs daily for 3 days , 2 tabs daily for 3 days, 1 tab daily for 3 days, 1/2 tab daily for 3 days PREDNISONE 20 MG TAB 083203 PREDNISONE Inactive LEVAQUIN 500 MG TABS take one po QD LEVAQUIN 50 0 MG TABS 388409 LEVOFLOXACIN Inactive AZITHROMYCIN 250 MG TABS 2 po qd x 1 day, then 1 po qd x 4 days AZITHROMYCIN 250 MG TABS 2882098 AZITHROMYCIN Inactiv e MEDROL (REYNA) 4 MG TABS 6 tabs on day 1, 5 tabs on d ay 2, 4 tabs on day 3, 3 tabs on day 4, 2 tabs on day 5, 1 tab on day 6 MEDROL (REYNA) 4 MG TABS METHYLPREDNISOLONE Inactive CHERATUSSIN AC 100-10 MG/5ML SYRP 5ml po q6hr PRN Cough CHERATUSSIN AC 100-10 MG/5ML SYRP 437404 GUAIFENESIN-CODEINE Inacti ve TRIAMCINOLONE ACETONIDE 0.1 % CREA apply three times daily prn r beatrice TRIAMCINOLONE ACETONIDE 0.1 % CREA 4319700 TRIAMCINOLONE ACETONIDE Inactive AZITHROMYCIN 250 MG TABS 2 po qd x 1 day, then 1 po qd x 4 days AZITHROMYCIN 250 MG TABS 6311640 AZITHROMYCIN Inactiv e MEDROL (REYNA) 4 MG [...] ... - Chemistry sodium, serum 143 mmol/L 833-209 9888/01/24 potassium, serum 4.1 mmol/L 3.5-5.2 chloride, serum [...] 0.60 mg/dL 0.00-1.00 cholesterol, serum 227 mg/dL 629-956 2151/01/24 triglyceride, serum, fasting 97 mg/dL 30-200 HDL [...] mg/dL Encounters Code Encounter Date Provider Facility CPT-86711 Level 3 Est. Patient 10:03:07 CDT Perez Mora MD [facility] CPT-91086 Level 3 Est. Patient 19:50:35 [employer] Carlton rich MD [facility] CPT-95173 Level 4 Est. Patient 18:05:01 [employer] Carlton rich MD [facility] CPT-28663 Level 3 Est. Patient 10:45:55 [employer] Hugo Restrepo MD [facility] CPT-78449 Level 3 Est. Patient 14:12:49 CDT Griffin HERNANDEZ [facility] CPT-63198 Level 3 Est. Patient 17:37:24 CDT Carlton rich MD [facility] CPT-85274 Level 3 Est. Patient 16:51:54 CDT Carlton rich MD [facility] CPT-42773 Level 3 Est. Patient 12:18:11 CDT Hugo Restrepo MD [facility] CPT-39354 Level 3 Est. Patient 11:30:25 CDT Marcy crisostomo MD PhD [facility] CPT-72345 Level 3 Est. Patient 12:00:47 [employer] Carlton rich MD [facility] CPT-15866 Level 3 Est. Patient 16:31:06 [employer] Carlton rich MD [facility] CPT-76852 Level 3 Est. Patient 16:23:24 [employer] Ridge tam [facility] CPT-17139 Level 3 Est. Patient 12:34:12 CDT Carlton rich MD [facility] CPT-78754 Level 2 Est. Patient 15:43:33 CDT Robi armstrong MD [facility] CPT-47852 Level 4 Est. Patient 14:04:44 CDT Carlton rich MD [facility] CPT-09776 Level 3 Est. Patient 05:47:59 CDT Ridge tam [facility] CPT-08876 Level 3 Est. Patient 13:12:53 [employer] Carlton rich MD [facility] CPT-83168 Level 3 Est. Patient 14:26:53 CDT Hugo Restrepo MD [facility] Procedures Code Procedure Name Date Entry Date Standard Desc ription CPT-58946 Fluzone Quadrivalent Intramuscular Suspe nsion 0.5 ML 14:31:55 CDT CPT-19935 Abx/Therapy Injection 13:28:47 [employer] CPT-J2930 Solu Medrol 125 mg (Methyl Prednisolone Sodium Succinate) 12:00:47 [employer] CPT-46338 Venipuncture Draw Fee 11:33:31 CDT CPT-46714 EKG Trac and Interp 11:21:09 CDT CPT-89894 Chest 2V Frontal and Lat 11:21:09 CDT 12/15 CPT-34441 Venipuncture Draw Fee 08:02:34 CDT CPT-81993 Chest 2V Frontal and Lat 05:47:59 CDT 06/05
--- OUTSIDE RECORDS SUMMARY | 2019-10-08 10:25 | XMS REPORT | Clinical Summary ---
[...] BID prn had pain 2 CYCLOBENZAPRINE HCL [id number] Active Carlton Hu MD A ctive PROMETHAZINE-CODEINE 6.25-10 MG/5ML SYRP 1 tsp by mouth ever y 8 hours prn cough PROMETHAZINE-CODEINE 50592618141 No Longer Active Robert Hu MD Active MEDROL (REYNA) 4 MG TABS 6 pills x 1 day, then 5 pill s x 1 day then 4 pills x 1 day, then 3 pills x 1 day, then 2 pills x 1 day, then 1 pill x 1 day, then stop METHYLPREDNISOLONE [id number] No Longer Active Parris Mora MD Active AZITHROMYCIN 250 MG TABS 2 po qd x 1 day, then 1 po qd x 4 days AZITHROMYCIN 64416757561 No Longer Active Perez Mora MD Active SYMBICORT 160-4.5 MCG/ACT AERO 2 puffs bid with rinse after 2011 BUDESONIDE-FORMOTEROL FUMARATE [id number] No Longer Active Perez Mora MD Active LYRICA 75 MG CAPS TAKE 1 CAPSULE BY MOUTH TWICE DAILY 2013 PREGABALIN 55944585882 No Longer Active Carlton Hu MD Active LYRICA 100 MG CAPS Take 1 tab po BID for fibromyalgia PREGABALIN 43557363645 Active Carlton Hu MD Active TOPAMAX 25 MG TABS 1 qHS x 1 week, then 1 BID x 1 week, then 1 qAM and 2 qHS x 1 week, then 2 BID (migraine prevention) TOPIRAMAT E 23735959278 No Longer Active Jerica FUENTES Active TOPAMAX 50 MG TABS take 1 tab po BID for migraines. 12/07/10 TOPIRAMATE 07474175028 No Longer Active Jerica FUENTES Ac tive TOPAMAX 100 MG TABS Take 1 tablet po bid TOPIRAMATE 4999 9558845 Active Carlton Hu MD Active TRIAMCINOLONE ACETONIDE 0.1 % CREA apply three times daily prn r beatrice TRIAMCINOLONE ACETONIDE 68028140169 No Longer Active Carlton Hu MD Active PAXIL 40 MG TAB take 1 tab po qday for depression PAROXETINE HCL 50662829741 Active Carlton Hu MD Active CYMBALTA 30 MG CPEP 1 cap by mouth daily DULOXE SNEHA HCL 33148113831 Active Carlton Hu MD Active CHERATUSSIN AC 100-10 MG/5ML SYRP 5ml po q6hr PRN Cough GUAIFENESIN-CODEINE 09466186912 No Longer Active Carlton Hu MD Active MEDROL (REYNA) 4 MG TABS 6 tabs on day 1, 5 tabs on d ay 2, 4 tabs on day 3, 3 tabs on day 4, 2 tabs on day 5, 1 tab on day 6 METHYLPREDNISOLONE 67145911684 No Longer Active Perez Mora MD Active AZITHROMYCIN 250 MG TABS 2 po qd x 1 day, then 1 po qd x 4 days AZITHROMYCIN 97869243652 No Longer Active Perez Mora MD Active PROPRANOLOL HCL 60 MG TABS 1 PO Q D PROPRANOL OL HCL 77499699555 No Longer Active Perez Mora MD Active CHERATUSSIN AC 100-10 MG/5ML SYRP take one tsp po Q 6hours prn c ough GUAIFENESIN-CODEINE 60946646156 No Longer Active Perez Means Active AUGMENTIN 875-125 MG TAB 1 tab by mouth twice daily with food 20 12/03/31 AMOXICILLIN-POT CLAVULANATE 89359025359 No Longer Active Chanel Mora MD Active CHERATUSSIN AC 100-10 MG/5ML SYRP 1 tsp by mouth every 4 hours as needed for cough GUAIFENESIN-CODEINE 99635593906 No Longer Activ e Hugo Restrepo MD Active ACETAMINOPHEN-CODEINE #3 300-30 MG TABS 1 PO Q 4-6 HRS PRN PAIN ACETAMINOPHEN-CODEINE 72449023021 No Longer Active Hugo Restrepo MD Active LEVAQUIN 500 MG TABS take one po QD LEVOFLOXACI N 34080651875 No Longer Active Griffin HERNANDEZ Active PREDNISONE 20 MG TAB Take 3 tabs daily for 3 days , 2 tabs daily for 3 days, 1 tab daily for 3 days, 1/2 tab daily for 3 days P REDNISONE 11740175442 No Longer Active Carlton Hu MD Active AVELOX 400 MG TABS 1 tab by mouth daily MOXIFLO XACIN HCL 46646545422 No Longer Active Carlton Hu MD Active CHERATUSSIN AC 100-10 MG/5ML SYRP 1 tsp by mouth every 4 hours as needed for cough GUAIFENESIN-CODEINE 88499430441 No Longer Activ e Hguo Restrepo MD Active AVELOX 400 MG TABS 1 tab by mouth daily MOXIFLO XACIN HCL 74564743302 No Longer Active Marcy De La Rosa MD PhD Active TERBINAFINE HCL 250 MG TABS 1 qDay TERBINAF INE HCL 25589558971 No Longer Active Marcy De La Rosa MD PhD Active CHERATUSSIN AC 100-10 MG/5ML SYRP 1 tsp by mouth every 4 hours as needed for cough GUAIFENESIN-CODEINE 33082876902 No Longer Activ e Marcy De La Rosa MD PhD Active AVELOX 400 MG TABS 1 tab by mouth daily MOXIFLO XACIN HCL 73500857371 No Longer Active Marcy De La Rosa MD PhD Active HYDROCODONE-ACETAMINOPHEN 5-325 MG TABS 1 po q 6hr PRN cough 201 05/09/16 HYDROCODONE-ACETAMINOPHEN 28618725083 No Longer Active Marcy De La Rosa MD PhD Active PREDNISONE 20 MG TAB 2 tabs daily for 3 days, 1 t ab daily for 3 days, 1/2 tab daily for 2 days PREDNISONE 59202890962 No Longer Active Carlton Hu MD Active CEFDINIR 300 MG CAPS by mouth twice a day CEFDI ODILIA 35550402928 No Longer Active Carlton Hu MD Active ZOCOR 40 MG TAB 1 tab by mouth daily SIMVASTATIN 38053556093 Active Carlton Hu MD Active HYDROCHLOROTHIAZIDE 25 MG TABS 1 TAB PO DAILY H YDROCHLOROTHIAZIDE 54710931627 Active Carlton Hu MD Active ACETAMINOPHEN-CODEINE #3 300-30 MG TABS 1 tablet po q 4-6hrs prn pain ACETAMINOPHEN-CODEINE 75804817126 No Longer Active Ridge Bess DO Active ZITHROMAX 250 MG TAB 2 po today, then 1 po q days 2-5 AZITHROMYCIN 71013925008 No Longer Active Carlton Hu MD Acti ve CHERATUSSIN AC 100-10 MG/5ML SYRP take 1 tsp po q4-6 hours prn c ough GUAIFENESIN-CODEINE 77073101862 No Longer Active Carlton Hu MD Active ACETAMINOPHEN-CODEINE #3 300-30 MG TABS 1 PO Q 4-6 HR PRN PAIN 2 ACETAMINOPHEN-CODEINE 27770627884 No Longer Active Carlton rihc MD Active LORTAB 7.5-500 MG/15ML ELIX 7.5 ml po q 4 hour prn cough HYDROCODONE-ACETAMINOPHEN 93932248603 No Longer Active Carlton Hu MD Active PREDNISONE 20 MG TAB 1 po bid 3 days, then 1 po q day 3 days 201 05/03/07 PREDNISONE 15571044945 No Longer Active Carlton Hu MD Active ELMIRON 100 MG CAPS 2 tablets in the am and 1 tablet at hs PENTOSAN POLYSULFATE SODIUM 52327085620 Active Gracie Cassopolis Active CEFDINIR 300 MG CAPS by mouth twice a day CEFDI ODILIA 73291376083 No Longer Active Carlton Hu MD Active CEFDINIR 300 MG CAPS by mouth twice a day CEFDI ODILIA 92805757938 No Longer Active Carlton Hu MD Active CEFDINIR 300 MG CAPS by mouth twice a day CEFDI ODILIA 65498127794 No Longer Active Carlton Hu MD Active TESSALON PERLES 100 MG CAP 1 tablet by mouth 3 times daily a s needed for cough BENZONATATE 22674743293 No Longer Active Carlton bustamante MD Active CEFDINIR 300 MG CAPS by mouth twice a day CEFDI ODILIA 66613551600 No Longer Active Carlton Hu MD Active ZITHROMAX Z-REYNA 250 MG TABS 2 today, then 1 daily for 4 days 201 04/09/17 AZITHROMYCIN 80678964030 No Longer Active Hugo Restrepo MD Active PREMARIN 0.625 MG TABS TAKE 1 TAB BY MOUTH DAILY ESTROGENS CONJUGATED 54403290759 Active Carlton Hu MD Active TESSALON PERLES 100 MG CAP 1 tablet by mouth 3 times daily a s needed for cough TESSALON PERLES 100 MG CAP 640260 BENZONATATE I nactive PREDNISONE 20 MG TAB 1 po bid 3 days, then 1 po q day 3 days 201 05/03/07 PREDNISONE 20 MG TAB 368688 PREDNISONE Inactive LORTAB 7.5-500 MG/15ML ELIX 7.5 ml po q 4 hour prn cough LORTAB 7.5-500 MG/15ML ELIX HYDROCODONE-ACETAMINOPHEN Inacti ve ACETAMINOPHEN-CODEINE #3 300-30 MG TABS 1 PO Q 4-6 HR PRN PAIN 2 ACETAMINOPHEN-CODEINE #3 300-30 MG TABS 378113 ACETAMIN OPHEN-CODEINE Inactive CHERATUSSIN AC 100-10 MG/5ML SYRP take 1 tsp po q4-6 hours prn c ough CHERATUSSIN AC 100-10 MG/5ML SYRP 258716 GUAIFENESIN-CO DEINE Inactive ACETAMINOPHEN-CODEINE #3 300-30 MG TABS 1 tablet po q 4-6hrs prn pain ACETAMINOPHEN-CODEINE #3 300-30 MG TABS 005666 ACETAMIN OPHEN-CODEINE Inactive HYDROCODONE-ACETAMINOPHEN 5-325 MG TABS 1 po q 6hr PRN cough 201 05/09/16 HYDROCODONE-ACETAMINOPHEN 5-325 MG TABS 512960 HYDROCODONE-ACETAMINOPHEN Inactive AVELOX 400 MG TABS 1 tab by mouth daily A VELOX 400 MG TABS 168280 MOXIFLOXACIN HCL Inactive CHERATUSSIN AC 100-10 MG/5ML SYRP 1 tsp by mouth every 4 hours as needed for cough CHERATUSSIN AC 100-10 MG/5ML SYRP 160817 GUAIFENESIN-CODEINE Inactive TERBINAFINE HCL 250 MG TABS 1 qDay TERBINAFINE HCL 250 MG TABS 318901 TERBINAFINE HCL Inactive CHERATUSSIN AC 100-10 MG/5ML SYRP 1 tsp by mouth every 4 hours as needed for cough CHERATUSSIN AC 100-10 MG/5ML SYRP 927685 GUAIFENESIN-CODEINE Inactive ACETAMINOPHEN-CODEINE #3 300-30 MG TABS 1 PO Q 4-6 HRS PRN PAIN ACETAMINOPHEN-CODEINE #3 300-30 MG TABS 711587 ACETAMINOPHEN-CODEIN E Inactive CHERATUSSIN AC 100-10 MG/5ML SYRP 1 tsp by mouth every 4 hours as needed for cough CHERATUSSIN AC 100-10 MG/5ML SYRP 599664 GUAIFENESIN-CODEINE Inactive AUGMENTIN 875-125 MG TAB 1 tab by mouth twice daily with food 20 12/03/31 AUGMENTIN 875-125 MG TAB 759225 AMOXICILLIN-POT CLAVULA EFE Inactive CHERATUSSIN AC 100-10 MG/5ML SYRP take one tsp po Q 6hours prn c ough CHERATUSSIN AC 100-10 MG/5ML SYRP 961591 GUAIFENESIN-CO DEINE Inactive PROPRANOLOL HCL 60 MG TABS 1 PO Q D P ROPRANOLOL HCL 60 MG TABS 227189 PROPRANOLOL HCL Inactive TOPAMAX 50 MG TABS take 1 tab po BID for migraines. 12/07/10 TOPAMAX 50 MG TABS 889091 TOPIRAMATE Inactive TOPAMAX 25 MG TABS 1 qHS x 1 week, then 1 BID x 1 week, then 1 qAM and 2 qHS x 1 week, then 2 BID (migraine prevention) TOPAMAX 2 5 MG TABS 485064 TOPIRAMATE Inactive LYRICA 75 MG CAPS TAKE 1 CAPSULE BY MOUTH TWICE DAILY LYRICA 75 MG CAPS PREGABALIN Inactive SYMBICORT 160-4.5 MCG/ACT AERO 2 puffs bid with rinse after 2011 SYMBICORT 160-4.5 MCG/ACT AERO BUDESONIDE-FORMOT SÁNCHEZ FUMARATE Inactive PROMETHAZINE-CODEINE 6.25-10 MG/5ML SYRP 1 tsp by mouth ever y 8 hours prn cough PROMETHAZINE-CODEINE 6.25-10 MG/5ML SYRP 638914 PROMETHAZINE-CODEINE Inactive ZITHROMAX Z-REYNA 250 MG TABS 2 today, then 1 daily for 4 days 201 04/09/17 ZITHROMAX Z-REYNA 250 MG TABS 8913872 AZITHROMYCIN Inac tive CEFDINIR 300 MG CAPS by mouth twice a day CEFDINIR 300 MG CAPS 20020704 CEFDINIR Inactive CEFDINIR 300 MG CAPS by mouth twice a day CEFDINIR 300 MG CAPS 335363 CEFDINIR Inactive CEFDINIR 300 MG CAPS by mouth twice a day CEFDINIR 300 MG CAPS 133453 CEFDINIR Inactive CEFDINIR 300 MG CAPS by mouth twice a day CEFDINIR 300 MG CAPS 286820 CEFDINIR Inactive ZITHROMAX 250 MG TAB 2 po today, then 1 po q days 2-5 ZITHROMAX 250 MG TAB 7521261 AZITHROMYCIN Inactive CEFDINIR 300 MG CAPS by mouth twice a day CEFDINIR 300 MG CAPS 20020704 CEFDINIR Inactive PREDNISONE 20 MG TAB 2 tabs daily for 3 days, 1 t ab daily for 3 days, 1/2 tab daily for 2 days PREDNISONE 20 MG TAB 655927 PREDNISON E Inactive AVELOX 400 MG TABS 1 tab by mouth daily A VELOX 400 MG TABS 361624 MOXIFLOXACIN HCL Inactive AVELOX 400 MG TABS 1 tab by mouth daily A VELOX 400 MG TABS 834757 MOXIFLOXACIN HCL Inactive PREDNISONE 20 MG TAB Take 3 tabs daily for 3 days , 2 tabs daily for 3 days, 1 tab daily for 3 days, 1/2 tab daily for 3 days PREDNISONE 20 MG TAB 099540 PREDNISONE Inactive LEVAQUIN 500 MG TABS take one po QD LEVAQUIN 50 0 MG TABS 954787 LEVOFLOXACIN Inactive AZITHROMYCIN 250 MG TABS 2 po qd x 1 day, then 1 po qd x 4 days AZITHROMYCIN 250 MG TABS 0682148 AZITHROMYCIN Inactiv e MEDROL (REYNA) 4 MG TABS 6 tabs on day 1, 5 tabs on d ay 2, 4 tabs on day 3, 3 tabs on day 4, 2 tabs on day 5, 1 tab on day 6 MEDROL (REYNA) 4 MG TABS METHYLPREDNISOLONE Inactive CHERATUSSIN AC 100-10 MG/5ML SYRP 5ml po q6hr PRN Cough CHERATUSSIN AC 100-10 MG/5ML SYRP 519781 GUAIFENESIN-CODEINE Inacti ve TRIAMCINOLONE ACETONIDE 0.1 % CREA apply three times daily prn r beatrice TRIAMCINOLONE ACETONIDE 0.1 % CREA 0722639 TRIAMCINOLONE ACETONIDE Inactive AZITHROMYCIN 250 MG TABS 2 po qd x 1 day, then 1 po qd x 4 days AZITHROMYCIN 250 MG TABS 9871788 AZITHROMYCIN Inactiv e MEDROL (REYNA) 4 MG [...] ... - Chemistry sodium, serum 143 mmol/L 649-405 5900/01/24 potassium, serum 4.1 mmol/L 3.5-5.2 chloride, serum [...] 0.60 mg/dL 0.00-1.00 cholesterol, serum 227 mg/dL 836-045 8049/01/24 triglyceride, serum, fasting 97 mg/dL 30-200 HDL [...] mg/dL Encounters Code Encounter Date Provider Facility CPT-64948 Level 3 Est. Patient 10:03:07 CDT Perez Mora MD [facility] CPT-22420 Level 3 Est. Patient 19:50:35 ROBOTICS TECHNICIAN Carlton rich MD [facility] CPT-54685 Level 4 Est. Patient 18:05:01 ROBOTICS TECHNICIAN Carlton rich MD [facility] CPT-84727 Level 3 Est. Patient 10:45:55 ROBOTICS TECHNICIAN Hugo Restrepo MD [facility] CPT-11983 Level 3 Est. Patient 14:12:49 CDT Griffin HERNANDEZ [facility] CPT-82683 Level 3 Est. Patient 17:37:24 CDT Carlton rich MD [facility] CPT-34081 Level 3 Est. Patient 16:51:54 CDT Carlton rich MD [facility] CPT-87409 Level 3 Est. Patient 12:18:11 CDT Hugo Restrepo MD [facility] CPT-96656 Level 3 Est. Patient 11:30:25 CDT Marcy crisostomo MD PhD [facility] CPT-83328 Level 3 Est. Patient 12:00:47 ROBOTICS TECHNICIAN Carlton rich MD [facility] CPT-97083 Level 3 Est. Patient 16:31:06 ROBOTICS TECHNICIAN Carlton rich MD [facility] CPT-39536 Level 3 Est. Patient 16:23:24 ROBOTICS TECHNICIAN [facility] CPT-63085 Level 3 Est. Patient 12:34:12 CDT Carlton rich MD [facility] CPT-09074 Level 2 Est. Patient 15:43:33 CDT Robi armstrong MD [facility] CPT-22399 Level 4 Est. Patient 14:04:44 CDT Carlton rich MD [facility] CPT-84208 Level 3 Est. Patient 05:47:59 CDT [facility] CPT-26015 Level 3 Est. Patient 13:12:53 ROBOTICS TECHNICIAN Carlton rich MD [facility] CPT-54890 Level 3 Est. Patient 14:26:53 CDT Hugo Restrepo MD [facility] Procedures Code Procedure Name Date Entry Date Standard Desc ription CPT-06555 Fluzone Quadrivalent Intramuscular Suspe nsion 0.5 ML 14:31:55 CDT CPT-36577 Abx/Therapy Injection 13:28:47 ROBOTICS TECHNICIAN CPT-J2930 Solu Medrol 125 mg (Methyl Prednisolone Sodium Succinate) 12:00:47 ROBOTICS TECHNICIAN CPT-19454 Venipuncture Draw Fee 11:33:31 CDT CPT-03744 EKG Trac and Interp 11:21:09 CDT CPT-10697 Chest 2V Frontal and Lat 11:21:09 CDT 12/15 CPT-33693 Venipuncture Draw Fee 08:02:34 CDT CPT-07100 Chest 2V Frontal and Lat 05:47:59 CDT 06/05
--- OUTSIDE RECORDS SUMMARY | 2019-10-08 10:25 | XMS REPORT | Clinical Summary ---
Author Author Admin, Juliana Martinez Organization [facility] Address Unknown Phone Allergies, Adverse Reactions, Alerts [...] myositis, unspecified DIVERTICULOSIS, COLON 562.10 Active Carlton olera MD Diverticulosis of colon (without mention of hemorrhage) HYPERLIPIDEMIA 272.4 Active Carlton Hu MD Other and unspecified hyperlipidemia HEALTH SCREENING V70.0 Resolved Marcy De La Rosa MD PhD Routine general medical examination at a [facility] MAMMOGRAM, ABNORMAL 793.80 Active Carlton [...] ICD-786.05 Inactive Marcy De La Rosa MD [facility] HEALTH SCREENING ICD-V70.0 Inactive Marcy ya [...] CAPSULE BY MOUTH TWICE DAILY 2013 PREGABALIN 17158302265 No Longer Active Carlton Hu MD Active LYRICA 100 MG CAPS Take 1 tab po BID for fibromyalgia PREGABALIN 50797615002 Active Carlton Hu MD Active TOPAMAX 25 MG TABS 1 qHS x 1 week, then 1 BID x 1 week, then 1 qAM and 2 qHS x 1 week, then 2 BID (migraine prevention) TOPIRAMAT E 61427883013 No Longer Active Jerica FUENTES Active TOPAMAX 50 MG TABS take 1 tab po BID for migraines. 12/07/10 TOPIRAMATE 44909291591 No Longer Active Jerica AGUILARA Ac tive TOPAMAX 100 MG TABS Take 1 tablet po bid TOPIRAMATE 4999 2355214 Active Carlton Hu MD Active TRIAMCINOLONE ACETONIDE 0.1 % CREA apply three times daily prn r beatrice TRIAMCINOLONE ACETONIDE 96487352934 No Longer Active Carlton Hu MD Active PAXIL 40 MG TAB take 1 tab po qday for depression PAROXETINE HCL 66292729458 Active Carlton Hu MD Active CYMBALTA 30 MG CPEP 1 cap by mouth daily DULOXE SNEHA HCL 50839561700 Active Carlton Hu MD Active CHERATUSSIN AC 100-10 MG/5ML SYRP 5ml po q6hr PRN Cough GUAIFENESIN-CODEINE 44848507609 No Longer Active Carlton Hu MD Active MEDROL (REYNA) 4 MG TABS 6 tabs on day 1, 5 tabs on d ay 2, 4 tabs on day 3, 3 tabs on day 4, 2 tabs on day 5, 1 tab on day 6 METHYLPREDNISOLONE 02051459279 No Longer Active Perez Mora MD Active AZITHROMYCIN 250 MG TABS 2 po qd x 1 day, then 1 po qd x 4 days AZITHROMYCIN 73936276615 No Longer Active Perez Mora MD Active PROPRANOLOL HCL 60 MG TABS 1 PO Q D PROPRANOL OL HCL 95637776431 No Longer Active Perez Mora MD Active CHERATUSSIN AC 100-10 MG/5ML SYRP take one tsp po Q 6hours prn c ough GUAIFENESIN-CODEINE 65041024733 No Longer Active Perez Means Active AUGMENTIN 875-125 MG TAB 1 tab by mouth twice daily with food 20 12/03/31 AMOXICILLIN-POT CLAVULANATE 81716991411 No Longer Active Chanel Mora MD Active CHERATUSSIN AC 100-10 MG/5ML SYRP 1 tsp by mouth every 4 hours as needed for cough GUAIFENESIN-CODEINE 71792728536 No Longer Activ e Hugo Restrepo MD Active ACETAMINOPHEN-CODEINE #3 300-30 MG TABS 1 PO Q 4-6 HRS PRN PAIN ACETAMINOPHEN-CODEINE 49323851165 No Longer Active Hugo Restrepo MD Active LEVAQUIN 500 MG TABS take one po QD LEVOFLOXACI N 85178213771 No Longer Active Griffin HERNANDEZ Active PREDNISONE 20 MG TAB Take 3 tabs daily for 3 days , 2 tabs daily for 3 days, 1 tab daily for 3 days, 1/2 tab daily for 3 days P REDNISONE 86574262006 No Longer Active Carlton Hu MD Active AVELOX 400 MG TABS 1 tab by mouth daily MOXIFLO XACIN HCL 43998565394 No Longer Active Carlton Hu MD Active CHERATUSSIN AC 100-10 MG/5ML SYRP 1 tsp by mouth every 4 hours as needed for cough GUAIFENESIN-CODEINE 52852141390 No Longer Activ e Hugo Restrepo MD Active AVELOX 400 MG TABS 1 tab by mouth daily MOXIFLO XACIN HCL 65942639249 No Longer Active Marcy De La Rosa MD PhD Active TERBINAFINE HCL 250 MG TABS 1 qDay TERBINAF INE HCL 93298313450 No Longer Active Marcy De La Rosa MD PhD Active CHERATUSSIN AC 100-10 MG/5ML SYRP 1 tsp by mouth every 4 hours as needed for cough GUAIFENESIN-CODEINE 42812910602 No Longer Activ e Marcy De La Rosa MD PhD Active AVELOX 400 MG TABS 1 tab by mouth daily MOXIFLO XACIN HCL 56562222463 No Longer Active Marcy De La Rosa MD PhD Active HYDROCODONE-ACETAMINOPHEN 5-325 MG TABS 1 po q 6hr PRN cough 201 05/09/16 HYDROCODONE-ACETAMINOPHEN 32226632911 No Longer Active Mracy De La Rosa MD PhD Active PREDNISONE 20 MG TAB 2 tabs daily for 3 days, 1 t ab daily for 3 days, 1/2 tab daily for 2 days PREDNISONE 47564800031 No Longer Active Carlton Hu MD Active CEFDINIR 300 MG CAPS by mouth twice a day CEFDI ODILIA 05630038314 No Longer Active Carlton Hu MD Active ZOCOR 40 MG TAB 1 tab by mouth daily SIMVASTATIN 76816071728 Active Carlton Hu MD Active HYDROCHLOROTHIAZIDE 25 MG TABS 1 TAB PO DAILY H YDROCHLOROTHIAZIDE 28282466375 Active Carlton Hu MD Active ACETAMINOPHEN-CODEINE #3 300-30 MG TABS 1 tablet po q 4-6hrs prn pain ACETAMINOPHEN-CODEINE 29930389209 No Longer Active Ridge Bess DO Active ZITHROMAX 250 MG TAB 2 po today, then 1 po q days 2-5 AZITHROMYCIN 10583274986 No Longer Active Carlton Hu MD Acti ve CHERATUSSIN AC 100-10 MG/5ML SYRP take 1 tsp po q4-6 hours prn c ough GUAIFENESIN-CODEINE 01673994849 No Longer Active Carlton Hu MD Active ACETAMINOPHEN-CODEINE #3 300-30 MG TABS 1 PO Q 4-6 HR PRN PAIN 2 ACETAMINOPHEN-CODEINE 94511010859 No Longer Active Carlton rich MD Active LORTAB 7.5-500 MG/15ML ELIX 7.5 ml po q 4 hour prn cough HYDROCODONE-ACETAMINOPHEN 92487463415 No Longer Active Carlton Hu MD Active PREDNISONE 20 MG TAB 1 po bid 3 days, then 1 po q day 3 days 201 05/03/07 PREDNISONE 10043336644 No Longer Active Carlton Hu MD Active SYMBICORT 160-4.5 MCG/ACT AERO 2 puffs bid with rinse after BUDESONIDE-FORMOTEROL FUMARATE 73071739078 Active Carlton Hu MD Active ELMIRON 100 MG CAPS 2 tablets in the am and 1 tablet at hs PENTOSAN POLYSULFATE SODIUM 59038439324 Active Gracie Bannock Active CEFDINIR 300 MG CAPS by mouth twice a day CEFDI ODILIA 73021284838 No Longer Active Carlton Hu MD Active CEFDINIR 300 MG CAPS by mouth twice a day CEFDI ODILIA 56319381784 No Longer Active Carlton Hu MD Active CEFDINIR 300 MG CAPS by mouth twice a day CEFDI ODILIA 82951253104 No Longer Active Carlton Hu MD Active TESSALON PERLES 100 MG CAP 1 tablet by mouth 3 times daily a s needed for cough BENZONATATE 94804569150 No Longer Active Carlton bustamante MD Active CEFDINIR 300 MG CAPS by mouth twice a day CEFDI ODILIA 69501727690 No Longer Active Carlton Hu MD Active ZITHROMAX Z-REYNA 250 MG TABS 2 today, then 1 daily for 4 days 201 04/09/17 AZITHROMYCIN 22244219598 No Longer Active Hugo Restrepo MD Active PREMARIN 0.625 MG TABS TAKE 1 TAB BY MOUTH DAILY ESTROGENS CONJUGATED 28316207370 Active Carlton Hu MD Active TESSALON PERLES 100 MG CAP 1 tablet by mouth 3 times daily a s needed for cough TESSALON PERLES 100 MG CAP 358893 BENZONATATE I nactive PREDNISONE 20 MG TAB 1 po bid 3 days, then 1 po q day 3 days 201 05/03/07 PREDNISONE 20 MG TAB 644816 PREDNISONE Inactive LORTAB 7.5-500 MG/15ML ELIX 7.5 ml po q 4 hour prn cough LORTAB 7.5-500 MG/15ML ELIX HYDROCODONE-ACETAMINOPHEN Inacti ve ACETAMINOPHEN-CODEINE #3 300-30 MG TABS 1 PO Q 4-6 HR PRN PAIN 2 ACETAMINOPHEN-CODEINE #3 300-30 MG TABS 846824 ACETAMIN OPHEN-CODEINE Inactive CHERATUSSIN AC 100-10 MG/5ML SYRP take 1 tsp po q4-6 hours prn c ough CHERATUSSIN AC 100-10 MG/5ML SYRP 109147 GUAIFENESIN-CO DEINE Inactive ACETAMINOPHEN-CODEINE #3 300-30 MG TABS 1 tablet po q 4-6hrs prn pain ACETAMINOPHEN-CODEINE #3 300-30 MG TABS 651080 ACETAMIN OPHEN-CODEINE Inactive HYDROCODONE-ACETAMINOPHEN 5-325 MG TABS 1 po q 6hr PRN cough 201 05/09/16 HYDROCODONE-ACETAMINOPHEN 5-325 MG TABS 687699 HYDROCODONE-ACETAMINOPHEN Inactive AVELOX 400 MG TABS 1 tab by mouth daily A VELOX 400 MG TABS 077067 MOXIFLOXACIN HCL Inactive CHERATUSSIN AC 100-10 MG/5ML SYRP 1 tsp by mouth every 4 hours as needed for cough CHERATUSSIN AC 100-10 MG/5ML SYRP 619688 GUAIFENESIN-CODEINE Inactive TERBINAFINE HCL 250 MG TABS 1 qDay TERBINAFINE HCL 250 MG TABS 747854 TERBINAFINE HCL Inactive CHERATUSSIN AC 100-10 MG/5ML SYRP 1 tsp by mouth every 4 hours as needed for cough CHERATUSSIN AC 100-10 MG/5ML SYRP 903496 GUAIFENESIN-CODEINE Inactive ACETAMINOPHEN-CODEINE #3 300-30 MG TABS 1 PO Q 4-6 HRS PRN PAIN ACETAMINOPHEN-CODEINE #3 300-30 MG TABS 038706 ACETAMINOPHEN-CODEIN E Inactive CHERATUSSIN AC 100-10 MG/5ML SYRP 1 tsp by mouth every 4 hours as needed for cough CHERATUSSIN AC 100-10 MG/5ML SYRP 045209 GUAIFENESIN-CODEINE Inactive AUGMENTIN 875-125 MG TAB 1 tab by mouth twice daily with food 20 12/03/31 AUGMENTIN 875-125 MG TAB 935420 AMOXICILLIN-POT CLAVULA EFE Inactive CHERATUSSIN AC 100-10 MG/5ML SYRP take one tsp po Q 6hours prn c ough CHERATUSSIN AC 100-10 MG/5ML SYRP 379018 GUAIFENESIN-CO DEINE Inactive PROPRANOLOL HCL 60 MG TABS 1 PO Q D P ROPRANOLOL HCL 60 MG TABS 048306 PROPRANOLOL HCL Inactive TOPAMAX 50 MG TABS take 1 tab po BID for migraines. 12/07/10 TOPAMAX 50 MG TABS 886991 TOPIRAMATE Inactive TOPAMAX 25 MG TABS 1 qHS x 1 week, then 1 BID x 1 week, then 1 qAM and 2 qHS x 1 week, then 2 BID (migraine prevention) TOPAMAX 2 5 MG TABS 416635 TOPIRAMATE Inactive LYRICA 75 MG CAPS TAKE 1 CAPSULE BY MOUTH TWICE DAILY LYRICA 75 MG CAPS PREGABALIN Inactive ZITHROMAX Z-REYNA 250 MG TABS 2 today, then 1 daily for 4 days 201 04/09/17 ZITHROMAX Z-REYNA 250 MG TABS 2904500 AZITHROMYCIN Inac tive CEFDINIR 300 MG CAPS [...] q days 2-5 ZITHROMAX 250 MG TAB 6225114 AZITHROMYCIN Inactive CEFDINIR 300 MG CAPS by mouth twice a day CEFDINIR 300 MG CAPS 20020704 CEFDINIR Inactive PREDNISONE 20 MG TAB 2 tabs daily for 3 days, 1 t ab daily for 3 days, 1/2 tab daily for 2 days PREDNISONE 20 MG TAB 948625 PREDNISON E Inactive AVELOX 400 MG TABS 1 tab by mouth daily A VELOX 400 MG TABS 823206 MOXIFLOXACIN HCL Inactive AVELOX 400 MG TABS 1 tab by mouth daily A VELOX 400 MG TABS 646579 MOXIFLOXACIN HCL Inactive PREDNISONE 20 MG TAB Take 3 tabs daily for 3 days , 2 tabs daily for 3 days, 1 tab daily for 3 days, 1/2 tab daily for 3 days PREDNISONE 20 MG TAB 248371 PREDNISONE Inactive LEVAQUIN 500 MG TABS take one po QD LEVAQUIN 50 0 MG TABS 957810 LEVOFLOXACIN Inactive AZITHROMYCIN 250 MG TABS 2 po qd x 1 day, then 1 po qd x 4 days AZITHROMYCIN 250 MG TABS 2251452 AZITHROMYCIN Inactiv e MEDROL (REYNA) 4 MG TABS 6 tabs on day 1, 5 tabs on d ay 2, 4 tabs on day 3, 3 tabs on day 4, 2 tabs on day 5, 1 tab on day 6 MEDROL (REYNA) 4 MG TABS METHYLPREDNISOLONE Inactive CHERATUSSIN AC 100-10 MG/5ML SYRP 5ml po q6hr PRN Cough CHERATUSSIN AC 100-10 MG/5ML SYRP 329180 GUAIFENESIN-CODEINE Inacti ve TRIAMCINOLONE ACETONIDE 0.1 % CREA apply three times daily prn r beatrice TRIAMCINOLONE ACETONIDE 0.1 % CREA 5382295 TRIAMCINOLONE ACETONIDE Inactive Vital Signs Date Name [...] - 3141-9 153 [lb_av] Weigh t Measured blood pressure, diastolic - 8462-4 83 mm[Hg] BP srinivasan blood pressure, systolic - 8480-6 125 mm[Hg] BP sys height E&M - 8302-2 152 [in_us] Bdy h eight pulse rate E&M - 8867-4 106 /min H eart rate temperature E&M 97.4 [degF] Body temp erature weight E&M - 3141-9 152 [lb_av] Weigh t Measured Diagnostic Results Date Name Value Unit Range Description Lab Report: CBC, Comp. Metabolic Panel, Lipid Panel, Thyroid Stimulating ... - Chemistry sodium, serum 143 mmol/L 833-984 7845/01/24 potassium, serum 4.1 mmol/L 3.5-5.2 chloride, serum [...] 0.60 mg/dL 0.00-1.00 cholesterol, serum 227 mg/dL 205-214 8429/01/24 triglyceride, serum, fasting 97 mg/dL 30-200 HDL [...] mg/dL Encounters Code Encounter Date Provider Facility CPT-34358 Level 3 Est. Patient 19:50:35 TICKET ATTENDANT Carlton rich MD [facility] CPT-19078 Level 4 Est. Patient 18:05:01 TICKET ATTENDANT Carlton rich MD [facility] CPT-07645 Level 3 Est. Patient 10:45:55 TICKET ATTENDANT Hugo Restrepo MD [facility] CPT-77321 Level 3 Est. Patient 14:12:49 CDT Griffin HERNANDEZ [facility] CPT-00812 Level 3 Est. Patient 17:37:24 CDT Carlton rich MD [facility] CPT-63894 Level 3 Est. Patient 16:51:54 CDT Carlton rich MD [facility] CPT-34389 Level 3 Est. Patient 12:18:11 CDT Hugo Restrepo MD [facility] CPT-93549 Level 3 Est. Patient 11:30:25 CDT Marcy crisostomo MD PhD [facility] CPT-44186 Level 3 Est. Patient 12:00:47 TICKET ATTENDANT Carlton rich MD [facility] CPT-62757 Level 3 Est. Patient 16:31:06 TICKET ATTENDANT Cralton rich MD [facility] CPT-30909 Level 3 Est. Patient 16:23:24 TICKET ATTENDANT Ridge tam [facility] CPT-49734 Level 3 Est. Patient 12:34:12 CDT Carlton rich MD [facility] CPT-84759 Level 2 Est. Patient 15:43:33 CDT Robi armstrong MD [facility] CPT-50272 Level 4 Est. Patient 14:04:44 CDT Carlton rich MD [facility] CPT-45851 Level 3 Est. Patient 05:47:59 CDT Ridge tam [facility] CPT-28714 Level 3 Est. Patient 13:12:53 TICKET ATTENDANT Carlton rich MD [facility] CPT-00297 Level 3 Est. Patient 14:26:53 CDT Hugo Restrepo MD [facility] Procedures Code Procedure Name Date Entry Date Standard Desc ription CPT-29034 Abx/Therapy Injection 13:28:47 TICKET ATTENDANT CPT-J2930 Solu Medrol 125 mg (Methyl Prednisolone Sodium Succinate) 12:00:47 TICKET ATTENDANT CPT-39889 Venipuncture Draw Fee 11:33:31 CDT CPT-48817 EKG Trac and Interp 11:21:09 CDT CPT-62743 Chest 2V Frontal and Lat 11:21:09 CDT 12/15 CPT-64701 Venipuncture Draw Fee 08:02:34 CDT CPT-32568 Chest 2V Frontal and Lat 05:47:59 CDT 06/05
--- OUTSIDE RECORDS SUMMARY | 2019-10-08 10:26 | XMS REPORT | Clinical Summary ---
Author Author Caitlin, Juliana Martinez Organization [facility] Address Unknown Phone Unavailable Allergies, Adverse [...] daily x 10 days 20 14/04/28 AMOXICILLIN [id number] No Longer Active Carlton Hu MD Active AMOXICILLIN 500 MG CAP 1 tab by mouth 3 times daily x 10 days 20 13/03/08 AMOXICILLIN 79760520880 No Longer Active Carlton Hu MD Active CHERATUSSIN AC 100-10 MG/5ML SYRP 1 tsp by mouth every 4 hours as needed for cough GUAIFENESIN-CODEINE 15900016111 Active Carlton banks MD Active CYCLOBENZAPRINE HCL 10 MG TABS 1 tablet by mouth BID prn had pain 2 CYCLOBENZAPRINE HCL 52762271684 Active Carlton Hu MD A ctive PROMETHAZINE-CODEINE 6.25-10 MG/5ML SYRP 1 tsp by mouth ever y 8 hours prn cough PROMETHAZINE-CODEINE 50424304802 No Longer Active Robert Hu MD Active MEDROL (REYNA) 4 MG TABS 6 pills x 1 day, then 5 pill s x 1 day then 4 pills x 1 day, then 3 pills x 1 day, then 2 pills x 1 day, then 1 pill x 1 day, then stop METHYLPREDNISOLONE 87752608884 No Longer Active Parris Mora MD Active AZITHROMYCIN 250 MG TABS 2 po qd x 1 day, then 1 po qd x 4 days AZITHROMYCIN 38752428572 No Longer Active Perez Mora MD Active SYMBICORT 160-4.5 MCG/ACT AERO 2 puffs bid with rinse after 2011 BUDESONIDE-FORMOTEROL FUMARATE 93149457668 No Longer Active Perez Mora MD Active LYRICA 75 MG CAPS TAKE 1 CAPSULE BY MOUTH TWICE DAILY 2013 PREGABALIN 35320120248 No Longer Active Carlton Hu MD Active LYRICA 100 MG CAPS Take 1 tab po BID for fibromyalgia PREGABALIN 55066254605 Active Carlton Hu MD Active TOPAMAX 25 MG TABS 1 qHS x 1 week, then 1 BID x 1 week, then 1 qAM and 2 qHS x 1 week, then 2 BID (migraine prevention) TOPIRAMAT E 86342841992 No Longer Active Jerica FUENTES Active TOPAMAX 50 MG TABS take 1 tab po BID for migraines. 12/07/10 TOPIRAMATE 34942700064 No Longer Active Jerica FUENTES Ac tive TOPAMAX 100 MG TABS Take 1 tablet po bid TOPIRAMATE 4999 5938992 Active Carlton Hu MD Active TRIAMCINOLONE ACETONIDE 0.1 % CREA apply three times daily prn r beatrice TRIAMCINOLONE ACETONIDE 96674151670 No Longer Active Carlton Hu MD Active PAXIL 40 MG TAB take 1 tab po qday for depression PAROXETINE HCL 84431913250 Active Carlton Hu MD Active CYMBALTA 30 MG CPEP 1 cap by mouth daily DULOXE SNEHA HCL 90240910462 Active Carlton Hu MD Active CHERATUSSIN AC 100-10 MG/5ML SYRP 5ml po q6hr PRN Cough GUAIFENESIN-CODEINE 93571045583 No Longer Active Carlton Hu MD Active MEDROL (REYNA) 4 MG TABS 6 tabs on day 1, 5 tabs on d ay 2, 4 tabs on day 3, 3 tabs on day 4, 2 tabs on day 5, 1 tab on day 6 METHYLPREDNISOLONE 01887006567 No Longer Active Perez Mora MD Active AZITHROMYCIN 250 MG TABS 2 po qd x 1 day, then 1 po qd x 4 days AZITHROMYCIN 45816066295 No Longer Active Perez Mora MD Active PROPRANOLOL HCL 60 MG TABS 1 PO Q D PROPRANOL OL HCL 03745233513 No Longer Active Perez Mora MD Active CHERATUSSIN AC 100-10 MG/5ML SYRP take one tsp po Q 6hours prn c ough GUAIFENESIN-CODEINE 29625062655 No Longer Active Perez Means Active AUGMENTIN 875-125 MG TAB 1 tab by mouth twice daily with food 20 12/03/31 AMOXICILLIN-POT CLAVULANATE 36547878960 No Longer Active Chanel Mora MD Active CHERATUSSIN AC 100-10 MG/5ML SYRP 1 tsp by mouth every 4 hours as needed for cough GUAIFENESIN-CODEINE 92173221034 No Longer Activ lidia Restrepo MD Active ACETAMINOPHEN-CODEINE #3 300-30 MG TABS 1 PO Q 4-6 HRS PRN PAIN ACETAMINOPHEN-CODEINE 13977621073 No Longer Active Hugo Restrepo MD Active LEVAQUIN 500 MG TABS take one po QD LEVOFLOXACI N 94830364811 No Longer Active Griffin HERNANDEZ Active PREDNISONE 20 MG TAB Take 3 tabs daily for 3 days , 2 tabs daily for 3 days, 1 tab daily for 3 days, 1/2 tab daily for 3 days P REDNISONE 71363304849 No Longer Active Carlton Hu MD Active AVELOX 400 MG TABS 1 tab by mouth daily MOXIFLO XACIN HCL 23380949861 No Longer Active Carlton Hu MD Active CHERATUSSIN AC 100-10 MG/5ML SYRP 1 tsp by mouth every 4 hours as needed for cough GUAIFENESIN-CODEINE 99414853003 No Longer Activ e Hugo Restrepo MD Active AVELOX 400 MG TABS 1 tab by mouth daily MOXIFLO XACIN HCL 57897032384 No Longer Active Marcy De La Rosa MD PhD Active TERBINAFINE HCL 250 MG TABS 1 qDay TERBINAF INE HCL 54204130965 No Longer Active Marcy De La Rosa MD PhD Active CHERATUSSIN AC 100-10 MG/5ML SYRP 1 tsp by mouth every 4 hours as needed for cough GUAIFENESIN-CODEINE 27609646899 No Longer Activ e Marcy De La Rosa MD PhD Active AVELOX 400 MG TABS 1 tab by mouth daily MOXIFLO XACIN HCL 63855010981 No Longer Active Marcy De La Rosa MD PhD Active HYDROCODONE-ACETAMINOPHEN 5-325 MG TABS 1 po q 6hr PRN cough 201 05/09/16 HYDROCODONE-ACETAMINOPHEN 60840689936 No Longer Active Marcy De La Rosa MD PhD Active PREDNISONE 20 MG TAB 2 tabs daily for 3 days, 1 t ab daily for 3 days, 1/2 tab daily for 2 days PREDNISONE 51363498327 No Longer Active Carlton Hu MD Active CEFDINIR 300 MG CAPS by mouth twice a day CEFDI ODILIA 51181654619 No Longer Active Carlton Hu MD Active ZOCOR 40 MG TAB 1 tab by mouth daily SIMVASTATIN 80047515601 Active Carlton Hu MD Active HYDROCHLOROTHIAZIDE 25 MG TABS 1 TAB PO DAILY H YDROCHLOROTHIAZIDE 90055642862 Active Carlton Hu MD Active ACETAMINOPHEN-CODEINE #3 300-30 MG TABS 1 tablet po q 4-6hrs prn pain ACETAMINOPHEN-CODEINE 87232480969 No Longer Active Ridge Bess DO Active ZITHROMAX 250 MG TAB 2 po today, then 1 po q days 2-5 AZITHROMYCIN 87047633844 No Longer Active Carlton Hu MD Acti ve CHERATUSSIN AC 100-10 MG/5ML SYRP take 1 tsp po q4-6 hours prn c ough GUAIFENESIN-CODEINE 55612347466 No Longer Active Carlton Hu MD Active ACETAMINOPHEN-CODEINE #3 300-30 MG TABS 1 PO Q 4-6 HR PRN PAIN 2 ACETAMINOPHEN-CODEINE 22779977617 No Longer Active Carlton rich MD Active LORTAB 7.5-500 MG/15ML ELIX 7.5 ml po q 4 hour prn cough HYDROCODONE-ACETAMINOPHEN 19310958341 No Longer Active Carlton Hu MD Active PREDNISONE 20 MG TAB 1 po bid 3 days, then 1 po q day 3 days 201 05/03/07 PREDNISONE 74899140170 No Longer Active Carlton Hu MD Active ELMIRON 100 MG CAPS 2 tablets in the am and 1 tablet at hs PENTOSAN POLYSULFATE SODIUM 07415558650 Active Gracie Westcliffe Active CEFDINIR 300 MG CAPS by mouth twice a day CEFDI ODILIA 49478741026 No Longer Active Carlton Hu MD Active CEFDINIR 300 MG CAPS by mouth twice a day CEFDI ODILIA 13003459144 No Longer Active Carlton Hu MD Active CEFDINIR 300 MG CAPS by mouth twice a day CEFDI ODILIA 40790812900 No Longer Active Carlton Hu MD Active TESSALON PERLES 100 MG CAP 1 tablet by mouth 3 times daily a s needed for cough BENZONATATE 63266816702 No Longer Active Carlton bustamante MD Active CEFDINIR 300 MG CAPS by mouth twice a day CEFDI ODILIA 71433308914 No Longer Active Carlton Hu MD Active ZITHROMAX Z-REYNA 250 MG TABS 2 today, then 1 daily for 4 days 201 04/09/17 AZITHROMYCIN 79400822757 No Longer Active Hugo Restrepo MD Active PREMARIN 0.625 MG TABS TAKE 1 TAB BY MOUTH DAILY ESTROGENS CONJUGATED 45432973578 Active Carlton Hu MD Active TESSALON PERLES 100 MG CAP 1 tablet by mouth 3 times daily a s needed for cough TESSALON PERLES 100 MG CAP 988738 BENZONATATE I nactive PREDNISONE 20 MG TAB 1 po bid 3 days, then 1 po q day 3 days 201 05/03/07 PREDNISONE 20 MG TAB 215424 PREDNISONE Inactive LORTAB 7.5-500 MG/15ML ELIX 7.5 ml po q 4 hour prn cough LORTAB 7.5-500 MG/15ML ELIX HYDROCODONE-ACETAMINOPHEN Inacti ve ACETAMINOPHEN-CODEINE #3 300-30 MG TABS 1 PO Q 4-6 HR PRN PAIN 2 ACETAMINOPHEN-CODEINE #3 300-30 MG TABS 214470 ACETAMIN OPHEN-CODEINE Inactive CHERATUSSIN AC 100-10 MG/5ML SYRP take 1 tsp po q4-6 hours prn c ough CHERATUSSIN AC 100-10 MG/5ML SYRP 056566 GUAIFENESIN-CO DEINE Inactive ACETAMINOPHEN-CODEINE #3 300-30 MG TABS 1 tablet po q 4-6hrs prn pain ACETAMINOPHEN-CODEINE #3 300-30 MG TABS 609913 ACETAMIN OPHEN-CODEINE Inactive HYDROCODONE-ACETAMINOPHEN 5-325 MG TABS 1 po q 6hr PRN cough 201 05/09/16 HYDROCODONE-ACETAMINOPHEN 5-325 MG TABS 890927 HYDROCODONE-ACETAMINOPHEN Inactive AVELOX 400 MG TABS 1 tab by mouth daily A VELOX 400 MG TABS 394898 MOXIFLOXACIN HCL Inactive CHERATUSSIN AC 100-10 MG/5ML SYRP 1 tsp by mouth every 4 hours as needed for cough CHERATUSSIN AC 100-10 MG/5ML SYRP 778407 GUAIFENESIN-CODEINE Inactive TERBINAFINE HCL 250 MG TABS 1 qDay TERBINAFINE HCL 250 MG TABS 418786 TERBINAFINE HCL Inactive CHERATUSSIN AC 100-10 MG/5ML SYRP 1 tsp by mouth every 4 hours as needed for cough CHERATUSSIN AC 100-10 MG/5ML SYRP 302399 GUAIFENESIN-CODEINE Inactive ACETAMINOPHEN-CODEINE #3 300-30 MG TABS 1 PO Q 4-6 HRS PRN PAIN ACETAMINOPHEN-CODEINE #3 300-30 MG TABS 442025 ACETAMINOPHEN-CODEIN E Inactive CHERATUSSIN AC 100-10 MG/5ML SYRP 1 tsp by mouth every 4 hours as needed for cough CHERATUSSIN AC 100-10 MG/5ML SYRP 210518 GUAIFENESIN-CODEINE Inactive AUGMENTIN 875-125 MG TAB 1 tab by mouth twice daily with food 20 12/03/31 AUGMENTIN 875-125 MG TAB 914604 AMOXICILLIN-POT CLAVULA EFE Inactive CHERATUSSIN AC 100-10 MG/5ML SYRP take one tsp po Q 6hours prn c ough CHERATUSSIN AC 100-10 MG/5ML SYRP 655370 GUAIFENESIN-CO DEINE Inactive PROPRANOLOL HCL 60 MG TABS 1 PO Q D P ROPRANOLOL HCL 60 MG TABS 653485 PROPRANOLOL HCL Inactive TOPAMAX 50 MG TABS take 1 tab po BID for migraines. 12/07/10 TOPAMAX 50 MG TABS 217665 TOPIRAMATE Inactive TOPAMAX 25 MG TABS 1 qHS x 1 week, then 1 BID x 1 week, then 1 qAM and 2 qHS x 1 week, then 2 BID (migraine prevention) TOPAMAX 2 5 MG TABS 970701 TOPIRAMATE Inactive LYRICA 75 MG CAPS TAKE 1 CAPSULE BY MOUTH TWICE DAILY LYRICA 75 MG CAPS PREGABALIN Inactive SYMBICORT 160-4.5 MCG/ACT AERO 2 puffs bid with rinse after 2011 SYMBICORT 160-4.5 MCG/ACT AERO BUDESONIDE-FORMOT SÁNCHEZ FUMARATE Inactive PROMETHAZINE-CODEINE 6.25-10 MG/5ML SYRP 1 tsp by mouth ever y 8 hours prn cough PROMETHAZINE-CODEINE 6.25-10 MG/5ML SYRP 588938 PROMETHAZINE-CODEINE Inactive ZITHROMAX Z-REYNA 250 MG TABS 2 today, then 1 daily for 4 days 201 04/09/17 ZITHROMAX Z-REYNA 250 MG TABS 4813272 AZITHROMYCIN Inac tive CEFDINIR 300 MG CAPS by mouth twice a day CEFDINIR 300 MG CAPS 20020704 CEFDINIR Inactive CEFDINIR 300 MG CAPS by mouth twice a day CEFDINIR 300 MG CAPS 20020704 CEFDINIR Inactive CEFDINIR 300 MG CAPS by mouth twice a day CEFDINIR 300 MG CAPS 875017 CEFDINIR Inactive CEFDINIR 300 MG CAPS by mouth twice a day CEFDINIR 300 MG CAPS 20020704 CEFDINIR Inactive ZITHROMAX 250 MG TAB 2 po today, then 1 po q days 2-5 ZITHROMAX 250 MG TAB 1586132 AZITHROMYCIN Inactive CEFDINIR 300 MG CAPS by mouth twice a day CEFDINIR 300 MG CAPS 20020704 CEFDINIR Inactive PREDNISONE 20 MG TAB 2 tabs daily for 3 days, 1 t ab daily for 3 days, 1/2 tab daily for 2 days PREDNISONE 20 MG TAB 577139 PREDNISON E Inactive AVELOX 400 MG TABS 1 tab by mouth daily A VELOX 400 MG TABS 699570 MOXIFLOXACIN HCL Inactive AVELOX 400 MG TABS 1 tab by mouth daily A VELOX 400 MG TABS 024291 MOXIFLOXACIN HCL Inactive PREDNISONE 20 MG TAB Take 3 tabs daily for 3 days , 2 tabs daily for 3 days, 1 tab daily for 3 days, 1/2 tab daily for 3 days PREDNISONE 20 MG TAB 687721 PREDNISONE Inactive LEVAQUIN 500 MG TABS take one po QD LEVAQUIN 50 0 MG TABS 887639 LEVOFLOXACIN Inactive AZITHROMYCIN 250 MG TABS 2 po qd x 1 day, then 1 po qd x 4 days AZITHROMYCIN 250 MG TABS 5259778 AZITHROMYCIN Inactiv e MEDROL (REYNA) 4 MG TABS 6 tabs on day 1, 5 tabs on d ay 2, 4 tabs on day 3, 3 tabs on day 4, 2 tabs on day 5, 1 tab on day 6 MEDROL (REYNA) 4 MG TABS METHYLPREDNISOLONE Inactive CHERATUSSIN AC 100-10 MG/5ML SYRP 5ml po q6hr PRN Cough CHERATUSSIN AC 100-10 MG/5ML SYRP 786671 GUAIFENESIN-CODEINE Inacti ve TRIAMCINOLONE ACETONIDE 0.1 % CREA apply three times daily prn r beatrice TRIAMCINOLONE ACETONIDE 0.1 % CREA 1468430 TRIAMCINOLONE ACETONIDE Inactive AZITHROMYCIN 250 MG TABS 2 po qd x 1 day, then 1 po qd x 4 days AZITHROMYCIN 250 MG TABS 4490471 AZITHROMYCIN Inactiv e MEDROL (REYNA) 4 MG [...] days 20 13/03/08 AMOXICILLIN 500 MG CAP 433839 AMOXICILLIN Inactive AMOXICILLIN 500 MG CAP 1 tab by mouth 3 times daily x 10 days 20 14/04/28 AMOXICILLIN 500 MG CAP 988108 AMOXICILLIN Inactive Vital Signs Date Name Value [...] [phone] Encounters Code Encounter Date Provider Facility CPT-69302 Level 3 Est. Patient 10:03:07 CDT Perez Mora MD [facility]-69232 Level 3 Est. Patient 19:50:35 NEWSP[employer]ER [employer]PERVISOR Carlton rich MD [facility]-32138 Level 4 Est. Patient 18:05:01 NEWSP[employer]ER [employer]RI[employer]OR SUPERVISOR Carlton rich MD [facility]-79539 Level 3 Est. Patient 10:45:55 NEWSP[employer]ER [employer] SUPERVISOR Hugo Restrepo MD [facility]-49838 Level 3 Est. Patient 14:12:49 CDT Griffin HERNANDEZ [facility]-94346 Level 3 Est. Patient 17:37:24 CDT Carlton rich MD [facility]-10901 Level 3 Est. Patient 16:51:54 CDT Carlton rich MD [facility]-67993 Level 3 Est. Patient 12:18:11 CDT Hugo Restrepo MD [facility]-70472 Level 3 Est. Patient 11:30:25 CDT Marcy crisostomo MD PhD [facility]-86175 Level 3 Est. Patient 12:00:47 NEWSP[employer]ER [employer]RI[employer]OR SUPERVISOR Carlton rich MD [facility]-56845 Level 3 Est. Patient 16:31:06 NEWSPAPER DISTRI[employer]OR SUPERVISOR Carlton rich MD [facility]-29907 Level 3 Est. Patient 16:23:24 NEWSPAPER DISTRI[employer]OR SUPERVISOR Ridge tam DO [facility]-06172 Level 3 Est. Patient 12:34:12 CDT Carlton rich MD [facility] CPT-53773 Level 2 Est. Patient 15:43:33 CDT Robi armstrong MD [facility] CPT-68599 Level 4 Est. Patient 14:04:44 CDT Carlton rich MD [facility] CPT-00000 Level 3 Est. Patient 05:47:59 CDT Ridge tam DO [facility] CPT-20139 Level 3 Est. Patient 13:12:53 NEWSP[employer]ER [employer]RI[employer]OR SUPERVISOR Carlton rich MD [facility] CPT-07829 Level 3 Est. Patient 14:26:53 CDT Hugo Restrepo MD [facility] Procedures Code Procedure Name Date Entry Date Standard Desc ription CPT-30021 Fluzone Quadrivalent Intramuscular Suspe nsion 0.5 ML 14:31:55 CDT CPT-25942 Abx/Therapy Injection 13:28:47 NEWSP[employer]ER [employer]OR SUPERVISOR CPT-J2930 Solu Medrol 125 mg (Methyl Prednisolone Sodium Succinate) 12:00:47 NEWSP[employer]ER [employer]RI[employer]OR SUPERVISOR CPT-61985 Venipuncture Draw Fee 11:33:31 CDT CPT-71276 EKG Trac and Interp 11:21:09 CDT CPT-57426 Chest 2V Frontal and Lat 11:21:09 CDT 12/15 CPT-66698 Venipuncture Draw Fee 08:02:34 CDT CPT-73023 Chest 2V Frontal and Lat 05:47:59 CDT 06/05
--- OUTSIDE RECORDS SUMMARY | 2019-10-08 10:26 | XMS REPORT | Clinical Summary ---
Author Author Admin, Juliana Martinez Organization [facility] Address Unknown Phone Allergies, Adverse Reactions, Alerts [...] PhD Routine general medical examination at a [facility] care facility MAMMOGRAM, ABNORMAL [phone] Active [...] ICD-786.05 Inactive Marcy De La Rosa MD [facility] HEALTH SCREENING ICD-V70.0 Inactive Marcy [...] CAPSULE BY MOUTH TWICE DAILY 2013 PREGABALIN [id number] No Longer Active Carlton Hu MD Active LYRICA 100 MG CAPS Take 1 tab po BID for fibromyalgia PREGABALIN 13878827634 Active Carlton Hu MD Active TOPAMAX 25 MG TABS 1 qHS x 1 week, then 1 BID x 1 week, then 1 qAM and 2 qHS x 1 week, then 2 BID (migraine prevention) TOPIRAMAT E 44614470961 No Longer Active Jerica FUENTES Active TOPAMAX 50 MG TABS take 1 tab po BID for migraines. 12/07/10 TOPIRAMATE 03663764829 No Longer Active Jerica AGUILARA Ac tive TOPAMAX 100 MG TABS Take 1 tablet po bid TOPIRAMATE 4999 1227969 Active Carlton Hu MD Active TRIAMCINOLONE ACETONIDE 0.1 % CREA apply three times daily prn r beatrice TRIAMCINOLONE ACETONIDE 18711124967 No Longer Active Carlton Hu MD Active PAXIL 40 MG TAB take 1 tab po qday for depression PAROXETINE HCL 22594621083 Active Carlton Hu MD Active CYMBALTA 30 MG CPEP 1 cap by mouth daily DULOXE SNEHA HCL 18098115250 Active Carlton Hu MD Active CHERATUSSIN AC 100-10 MG/5ML SYRP 5ml po q6hr PRN Cough GUAIFENESIN-CODEINE 24813240298 No Longer Active Carlton Hu MD Active MEDROL (REYNA) 4 MG TABS 6 tabs on day 1, 5 tabs on d ay 2, 4 tabs on day 3, 3 tabs on day 4, 2 tabs on day 5, 1 tab on day 6 METHYLPREDNISOLONE 66901105665 No Longer Active Perez Mora MD Active AZITHROMYCIN 250 MG TABS 2 po qd x 1 day, then 1 po qd x 4 days AZITHROMYCIN 34792573383 No Longer Active Perez Mora MD Active PROPRANOLOL HCL 60 MG TABS 1 PO Q D PROPRANOL OL HCL 67394562679 No Longer Active Perez Mora MD Active CHERATUSSIN AC 100-10 MG/5ML SYRP take one tsp po Q 6hours prn c ough GUAIFENESIN-CODEINE 25890182266 No Longer Active Perez Means Active AUGMENTIN 875-125 MG TAB 1 tab by mouth twice daily with food 20 12/03/31 AMOXICILLIN-POT CLAVULANATE 13073895638 No Longer Active Chanel Mora MD Active CHERATUSSIN AC 100-10 MG/5ML SYRP 1 tsp by mouth every 4 hours as needed for cough GUAIFENESIN-CODEINE 85411541958 No Longer Activ e Hugo Restrepo MD Active ACETAMINOPHEN-CODEINE #3 300-30 MG TABS 1 PO Q 4-6 HRS PRN PAIN ACETAMINOPHEN-CODEINE 88859378296 No Longer Active Hugo Restrepo MD Active LEVAQUIN 500 MG TABS take one po QD LEVOFLOXACI N 19790036313 No Longer Active Griffin HERNANDEZ Active PREDNISONE 20 MG TAB Take 3 tabs daily for 3 days , 2 tabs daily for 3 days, 1 tab daily for 3 days, 1/2 tab daily for 3 days P REDNISONE 62447158047 No Longer Active Carlton Hu MD Active AVELOX 400 MG TABS 1 tab by mouth daily MOXIFLO XACIN HCL 35768783161 No Longer Active Carlton Hu MD Active CHERATUSSIN AC 100-10 MG/5ML SYRP 1 tsp by mouth every 4 hours as needed for cough GUAIFENESIN-CODEINE 94072514261 No Longer Activ e Hguo Restrepo MD Active AVELOX 400 MG TABS 1 tab by mouth daily MOXIFLO XACIN HCL 80880079033 No Longer Active Marcy De La Rosa MD PhD Active TERBINAFINE HCL 250 MG TABS 1 qDay TERBINAF INE HCL 93198176717 No Longer Active Marcy De La Rosa MD PhD Active CHERATUSSIN AC 100-10 MG/5ML SYRP 1 tsp by mouth every 4 hours as needed for cough GUAIFENESIN-CODEINE 65829256249 No Longer Activ e Marcy De La Rosa MD PhD Active AVELOX 400 MG TABS 1 tab by mouth daily MOXIFLO XACIN HCL 40203671343 No Longer Active Marcy De La Rosa MD PhD Active HYDROCODONE-ACETAMINOPHEN 5-325 MG TABS 1 po q 6hr PRN cough 201 05/09/16 HYDROCODONE-ACETAMINOPHEN 85654974452 No Longer Active Marcy De La Rosa MD PhD Active PREDNISONE 20 MG TAB 2 tabs daily for 3 days, 1 t ab daily for 3 days, 1/2 tab daily for 2 days PREDNISONE 41230356502 No Longer Active Carlton Hu MD Active CEFDINIR 300 MG CAPS by mouth twice a day CEFDI ODILIA 52106446820 No Longer Active Carlton Hu MD Active ZOCOR 40 MG TAB 1 tab by mouth daily SIMVASTATIN 66772252851 Active Carlton Hu MD Active HYDROCHLOROTHIAZIDE 25 MG TABS 1 TAB PO DAILY H YDROCHLOROTHIAZIDE 51036874922 Active Carlton Hu MD Active ACETAMINOPHEN-CODEINE #3 300-30 MG TABS 1 tablet po q 4-6hrs prn pain ACETAMINOPHEN-CODEINE 19851576495 No Longer Active Ridge Bess DO Active ZITHROMAX 250 MG TAB 2 po today, then 1 po q days 2-5 AZITHROMYCIN 37514245718 No Longer Active Carlton Hu MD Acti ve CHERATUSSIN AC 100-10 MG/5ML SYRP take 1 tsp po q4-6 hours prn c ough GUAIFENESIN-CODEINE 63144982639 No Longer Active Carlton Hu MD Active ACETAMINOPHEN-CODEINE #3 300-30 MG TABS 1 PO Q 4-6 HR PRN PAIN 2 ACETAMINOPHEN-CODEINE 37816486851 No Longer Active Carlton rich MD Active LORTAB 7.5-500 MG/15ML ELIX 7.5 ml po q 4 hour prn cough HYDROCODONE-ACETAMINOPHEN 49354769247 No Longer Active Carlton Hu MD Active PREDNISONE 20 MG TAB 1 po bid 3 days, then 1 po q day 3 days 201 05/03/07 PREDNISONE 58474049060 No Longer Active Carlton Hu MD Active SYMBICORT 160-4.5 MCG/ACT AERO 2 puffs bid with rinse after BUDESONIDE-FORMOTEROL FUMARATE 45968442874 Active Carlton Hu MD Active ELMIRON 100 MG CAPS 2 tablets in the am and 1 tablet at hs PENTOSAN POLYSULFATE SODIUM 03159932594 Active Gracie [place] Active CEFDINIR 300 MG CAPS by mouth twice a day CEFDI ODILIA 27678115166 No Longer Active Carlton Hu MD Active CEFDINIR 300 MG CAPS by mouth twice a day CEFDI ODILIA 86362906062 No Longer Active Carlton Hu MD Active CEFDINIR 300 MG CAPS by mouth twice a day CEFDI ODILIA 26525787559 No Longer Active Carlton Hu MD Active TESSALON PERLES 100 MG CAP 1 tablet by mouth 3 times daily a s needed for cough BENZONATATE 32593694224 No Longer Active Carlton bustamante MD Active CEFDINIR 300 MG CAPS by mouth twice a day CEFDI ODILIA 35623623267 No Longer Active Carlton Hu MD Active ZITHROMAX Z-REYNA 250 MG TABS 2 today, then 1 daily for 4 days 201 04/09/17 AZITHROMYCIN 87498652507 No Longer Active Hugo Restrepo MD Active PREMARIN 0.625 MG TABS TAKE 1 TAB BY MOUTH DAILY ESTROGENS CONJUGATED 02014538168 Active Carlton Hu MD Active TESSALON PERLES 100 MG CAP 1 tablet by mouth 3 times daily a s needed for cough TESSALON PERLES 100 MG CAP 137703 BENZONATATE I nactive PREDNISONE 20 MG TAB 1 po bid 3 days, then 1 po q day 3 days 201 05/03/07 PREDNISONE 20 MG TAB 410556 PREDNISONE Inactive LORTAB 7.5-500 MG/15ML ELIX 7.5 ml po q 4 hour prn cough LORTAB 7.5-500 MG/15ML ELIX HYDROCODONE-ACETAMINOPHEN Inacti ve ACETAMINOPHEN-CODEINE #3 300-30 MG TABS 1 PO Q 4-6 HR PRN PAIN 2 ACETAMINOPHEN-CODEINE #3 300-30 MG TABS 801962 ACETAMIN OPHEN-CODEINE Inactive CHERATUSSIN AC 100-10 MG/5ML SYRP take 1 tsp po q4-6 hours prn c ough CHERATUSSIN AC 100-10 MG/5ML SYRP 745446 GUAIFENESIN-CO DEINE Inactive ACETAMINOPHEN-CODEINE #3 300-30 MG TABS 1 tablet po q 4-6hrs prn pain ACETAMINOPHEN-CODEINE #3 300-30 MG TABS 806133 ACETAMIN OPHEN-CODEINE Inactive HYDROCODONE-ACETAMINOPHEN 5-325 MG TABS 1 po q 6hr PRN cough 201 05/09/16 HYDROCODONE-ACETAMINOPHEN 5-325 MG TABS 806948 HYDROCODONE-ACETAMINOPHEN Inactive AVELOX 400 MG TABS 1 tab by mouth daily A VELOX 400 MG TABS 949987 MOXIFLOXACIN HCL Inactive CHERATUSSIN AC 100-10 MG/5ML SYRP 1 tsp by mouth every 4 hours as needed for cough CHERATUSSIN AC 100-10 MG/5ML SYRP 190440 GUAIFENESIN-CODEINE Inactive TERBINAFINE HCL 250 MG TABS 1 qDay TERBINAFINE HCL 250 MG TABS 401259 TERBINAFINE HCL Inactive CHERATUSSIN AC 100-10 MG/5ML SYRP 1 tsp by mouth every 4 hours as needed for cough CHERATUSSIN AC 100-10 MG/5ML SYRP 022233 GUAIFENESIN-CODEINE Inactive ACETAMINOPHEN-CODEINE #3 300-30 MG TABS 1 PO Q 4-6 HRS PRN PAIN ACETAMINOPHEN-CODEINE #3 300-30 MG TABS 966312 ACETAMINOPHEN-CODEIN E Inactive CHERATUSSIN AC 100-10 MG/5ML SYRP 1 tsp by mouth every 4 hours as needed for cough CHERATUSSIN AC 100-10 MG/5ML SYRP 298059 GUAIFENESIN-CODEINE Inactive AUGMENTIN 875-125 MG TAB 1 tab by mouth twice daily with food 20 12/03/31 AUGMENTIN 875-125 MG TAB 105922 AMOXICILLIN-POT CLAVULA EFE Inactive CHERATUSSIN AC 100-10 MG/5ML SYRP take one tsp po Q 6hours prn c ough CHERATUSSIN AC 100-10 MG/5ML SYRP 443056 GUAIFENESIN-CO DEINE Inactive PROPRANOLOL HCL 60 MG TABS 1 PO Q D P ROPRANOLOL HCL 60 MG TABS 402185 PROPRANOLOL HCL Inactive TOPAMAX 50 MG TABS take 1 tab po BID for migraines. 12/07/10 TOPAMAX 50 MG TABS 159134 TOPIRAMATE Inactive TOPAMAX 25 MG TABS 1 qHS x 1 week, then 1 BID x 1 week, then 1 qAM and 2 qHS x 1 week, then 2 BID (migraine prevention) TOPAMAX 2 5 MG TABS 443049 TOPIRAMATE Inactive LYRICA 75 MG CAPS TAKE 1 CAPSULE BY MOUTH TWICE DAILY LYRICA 75 MG CAPS PREGABALIN Inactive ZITHROMAX Z-REYNA 250 MG TABS 2 today, then 1 daily for 4 days 201 04/09/17 ZITHROMAX Z-REYNA 250 MG TABS 4586948 AZITHROMYCIN Inac tive CEFDINIR 300 MG CAPS [...] q days 2-5 ZITHROMAX 250 MG TAB 1329696 AZITHROMYCIN Inactive CEFDINIR 300 MG CAPS by mouth twice a day CEFDINIR 300 MG CAPS 20020704 CEFDINIR Inactive PREDNISONE 20 MG TAB 2 tabs daily for 3 days, 1 t ab daily for 3 days, 1/2 tab daily for 2 days PREDNISONE 20 MG TAB 856895 PREDNISON E Inactive AVELOX 400 MG TABS 1 tab by mouth daily A VELOX 400 MG TABS 009011 MOXIFLOXACIN HCL Inactive AVELOX 400 MG TABS 1 tab by mouth daily A VELOX 400 MG TABS 098935 MOXIFLOXACIN HCL Inactive PREDNISONE 20 MG TAB Take 3 tabs daily for 3 days , 2 tabs daily for 3 days, 1 tab daily for 3 days, 1/2 tab daily for 3 days PREDNISONE 20 MG TAB 838629 PREDNISONE Inactive LEVAQUIN 500 MG TABS take one po QD LEVAQUIN 50 0 MG TABS 367162 LEVOFLOXACIN Inactive AZITHROMYCIN 250 MG TABS 2 po qd x 1 day, then 1 po qd x 4 days AZITHROMYCIN 250 MG TABS 5061594 AZITHROMYCIN Inactiv e MEDROL (REYNA) 4 MG TABS 6 tabs on day 1, 5 tabs on d ay 2, 4 tabs on day 3, 3 tabs on day 4, 2 tabs on day 5, 1 tab on day 6 MEDROL (REYNA) 4 MG TABS METHYLPREDNISOLONE Inactive CHERATUSSIN AC 100-10 MG/5ML SYRP 5ml po q6hr PRN Cough CHERATUSSIN AC 100-10 MG/5ML SYRP 863730 GUAIFENESIN-CODEINE Inacti ve TRIAMCINOLONE ACETONIDE 0.1 % CREA apply three times daily prn r beatrice TRIAMCINOLONE ACETONIDE 0.1 % CREA 0093538 TRIAMCINOLONE ACETONIDE Inactive Vital Signs Date Name [...] ... - Chemistry sodium, serum 143 mmol/L 138-779 1175/01/24 potassium, serum 4.1 mmol/L 3.5-5.2 chloride, serum [...] 0.60 mg/dL 0.00-1.00 cholesterol, serum 227 mg/dL 119-767 9950/01/24 triglyceride, serum, fasting 97 mg/dL 30-200 HDL [...] mg/dL Encounters Code Encounter Date Provider Facility CPT-88977 Level 3 Est. Patient 19:50:35 WELL FLOW OPERATOR Carlton rich MD [facility] CPT-51505 Level 4 Est. Patient 18:05:01 WELL FLOW OPERATOR Carlton rich MD [facility] CPT-09436 Level 3 Est. Patient 10:45:55 WELL FLOW OPERATOR Hugo Resrtepo MD [facility] CPT-45972 Level 3 Est. Patient 14:12:49 CDT Griffin HERNANDEZ [facility] CPT-75238 Level 3 Est. Patient 17:37:24 CDT Carlton rich MD [facility] CPT-02923 Level 3 Est. Patient 16:51:54 CDT Carlton rich MD [facility] CPT-23983 Level 3 Est. Patient 12:18:11 CDT Hugo Restrepo MD [facility] CPT-52903 Level 3 Est. Patient 11:30:25 CDT Marcy crisostomo MD PhD [facility] CPT-23080 Level 3 Est. Patient 12:00:47 WELL FLOW OPERATOR Carlton rich MD [facility] CPT-26732 Level 3 Est. Patient 16:31:06 WELL FLOW OPERATOR Carlton rich MD [facility] CPT-61709 Level 3 Est. Patient 16:23:24 WELL FLOW OPERATOR Ridge tam [facility] CPT-01828 Level 3 Est. Patient 12:34:12 CDT Carlton rich MD [facility] CPT-67010 Level 2 Est. Patient 15:43:33 CDT Robi armstrong MD [facility] CPT-51061 Level 4 Est. Patient 14:04:44 CDT Carlton rich MD [facility] CPT-77080 Level 3 Est. Patient 05:47:59 CDT Ridge tam [facility] CPT-52529 Level 3 Est. Patient 13:12:53 WELL FLOW OPERATOR Carlton rich MD [facility] CPT-98898 Level 3 Est. Patient 14:26:53 CDT Hugo Restrepo MD [facility] Procedures Code Procedure Name Date Entry Date Standard Desc ription CPT-22596 Abx/Therapy Injection 13:28:47 WELL FLOW OPERATOR CPT-J2930 Solu Medrol 125 mg (Methyl Prednisolone Sodium Succinate) 12:00:47 WELL FLOW OPERATOR CPT-08949 Venipuncture Draw Fee 11:33:31 CDT CPT-15186 EKG Trac and Interp 11:21:09 CDT CPT-34079 Chest 2V Frontal and Lat 11:21:09 CDT 12/15 CPT-71436 Venipuncture Draw Fee 08:02:34 CDT CPT-35216 Chest 2V Frontal and Lat 05:47:59 CDT 06/05
--- OUTSIDE RECORDS SUMMARY | 2019-10-08 10:26 | XMS REPORT | Clinical Summary ---
Author Author Caitlin, Juliana Martinez Organization [facility] Address Unknown Phone Unavailable Allergies, Adverse [...] daily x 10 days 20 13/03/08 AMOXICILLIN [id number] No Longer Active Carlton Hu MD Active CHERATUSSIN AC 100-10 MG/5ML SYRP 1 tsp by mouth every 4 hours as needed for cough GUAIFENESIN-CODEINE 73760603975 Active Carlton banks MD Active CYCLOBENZAPRINE HCL 10 MG TABS 1 tablet by mouth BID prn had pain 2 CYCLOBENZAPRINE HCL 45764804534 Active Carlton Hu MD A ctive PROMETHAZINE-CODEINE 6.25-10 MG/5ML SYRP 1 tsp by mouth ever y 8 hours prn cough PROMETHAZINE-CODEINE 42385715328 No Longer Active Robert Hu MD Active MEDROL (REYNA) 4 MG TABS 6 pills x 1 day, then 5 pill s x 1 day then 4 pills x 1 day, then 3 pills x 1 day, then 2 pills x 1 day, then 1 pill x 1 day, then stop METHYLPREDNISOLONE 01067130628 No Longer Active Parris Mora MD Active AZITHROMYCIN 250 MG TABS 2 po qd x 1 day, then 1 po qd x 4 days AZITHROMYCIN 07722712319 No Longer Active Perez Mora MD Active SYMBICORT 160-4.5 MCG/ACT AERO 2 puffs bid with rinse after 2011 BUDESONIDE-FORMOTEROL FUMARATE 74013267795 No Longer Active Perez Mora MD Active LYRICA 75 MG CAPS TAKE 1 CAPSULE BY MOUTH TWICE DAILY 2013 PREGABALIN 79578805476 No Longer Active Carlton Hu MD Active LYRICA 100 MG CAPS Take 1 tab po BID for fibromyalgia PREGABALIN 89678814217 Active Carlton Hu MD Active TOPAMAX 25 MG TABS 1 qHS x 1 week, then 1 BID x 1 week, then 1 qAM and 2 qHS x 1 week, then 2 BID (migraine prevention) TOPIRAMAT E 63597851100 No Longer Active Jerica Goeringer RMA Active TOPAMAX 50 MG TABS take 1 tab po BID for migraines. 12/07/10 TOPIRAMATE 90009909923 No Longer Active Jerica Goeringer RMA Ac tive TOPAMAX 100 MG TABS Take 1 tablet po bid TOPIRAMATE 4999 0109737 Active Carlton Hu MD Active TRIAMCINOLONE ACETONIDE 0.1 % CREA apply three times daily prn r beatrice TRIAMCINOLONE ACETONIDE 29802767777 No Longer Active Carlton Hu MD Active PAXIL 40 MG TAB take 1 tab po qday for depression PAROXETINE HCL 16943723786 Active Carlton Hu MD Active CYMBALTA 30 MG CPEP 1 cap by mouth daily DULOXE SNEHA HCL 22496922887 Active Carlton Hu MD Active CHERATUSSIN AC 100-10 MG/5ML SYRP 5ml po q6hr PRN Cough GUAIFENESIN-CODEINE 27991518463 No Longer Active Carlton Hu MD Active MEDROL (REYNA) 4 MG TABS 6 tabs on day 1, 5 tabs on d ay 2, 4 tabs on day 3, 3 tabs on day 4, 2 tabs on day 5, 1 tab on day 6 METHYLPREDNISOLONE 68199040544 No Longer Active Perez Mora MD Active AZITHROMYCIN 250 MG TABS 2 po qd x 1 day, then 1 po qd x 4 days AZITHROMYCIN 17675070141 No Longer Active Perez Mora MD Active PROPRANOLOL HCL 60 MG TABS 1 PO Q D PROPRANOL OL HCL 46317855740 No Longer Active Perez Mora MD Active CHERATUSSIN AC 100-10 MG/5ML SYRP take one tsp po Q 6hours prn c ough GUAIFENESIN-CODEINE 29829174674 No Longer Active Perez Means Active AUGMENTIN 875-125 MG TAB 1 tab by mouth twice daily with food 12/03/31 AMOXICILLIN-POT CLAVULANATE 54201744404 No Longer Active Chanel Mora MD Active CHERATUSSIN AC 100-10 MG/5ML SYRP 1 tsp by mouth every 4 hours as needed for cough GUAIFENESIN-CODEINE 36862136700 No Longer Activ e Hugo Restrepo MD Active ACETAMINOPHEN-CODEINE #3 300-30 MG TABS 1 PO Q 4-6 HRS PRN PAIN ACETAMINOPHEN-CODEINE 04023229958 No Longer Active Hugo Restrepo MD Active LEVAQUIN 500 MG TABS take one po QD LEVOFLOXACI N 12167576469 No Longer Active Griffin HERNANDEZ Active PREDNISONE 20 MG TAB Take 3 tabs daily for 3 days , 2 tabs daily for 3 days, 1 tab daily for 3 days, 1/2 tab daily for 3 days P REDNISONE 77791425083 No Longer Active Carlton Hu MD Active AVELOX 400 MG TABS 1 tab by mouth daily MOXIFLO XACIN HCL 58836026441 No Longer Active Carlton Hu MD Active CHERATUSSIN AC 100-10 MG/5ML SYRP 1 tsp by mouth every 4 hours as needed for cough GUAIFENESIN-CODEINE 97314756828 No Longer Activ e Hugo Restrepo MD Active AVELOX 400 MG TABS 1 tab by mouth daily MOXIFLO XACIN HCL 64746618095 No Longer Active Marcy De La Rosa MD PhD Active TERBINAFINE HCL 250 MG TABS 1 qDay TERBINAF INE HCL 96946263483 No Longer Active Marcy De La Rosa MD PhD Active CHERATUSSIN AC 100-10 MG/5ML SYRP 1 tsp by mouth every 4 hours as needed for cough GUAIFENESIN-CODEINE 14833928871 No Longer Activ e Marcy De La Rosa MD PhD Active AVELOX 400 MG TABS 1 tab by mouth daily MOXIFLO XACIN HCL 80432056899 No Longer Active Marcy De La Rosa MD PhD Active HYDROCODONE-ACETAMINOPHEN 5-325 MG TABS 1 po q 6hr PRN cough 201 05/09/16 HYDROCODONE-ACETAMINOPHEN 87999516999 No Longer Active Marcy De La Rosa MD PhD Active PREDNISONE 20 MG TAB 2 tabs daily for 3 days, 1 t ab daily for 3 days, 1/2 tab daily for 2 days PREDNISONE 89749938678 No Longer Active Carlton Hu MD Active CEFDINIR 300 MG CAPS by mouth twice a day CEFDI ODILIA 16626406106 No Longer Active Carlton Hu MD Active ZOCOR 40 MG TAB 1 tab by mouth daily SIMVASTATIN 64809085382 Active Carlton Hu MD Active HYDROCHLOROTHIAZIDE 25 MG TABS 1 TAB PO DAILY H YDROCHLOROTHIAZIDE 39596379855 Active Carlton Hu MD Active ACETAMINOPHEN-CODEINE #3 300-30 MG TABS 1 tablet po q 4-6hrs prn pain ACETAMINOPHEN-CODEINE 18651628575 No Longer Active Ridge Bess DO Active ZITHROMAX 250 MG TAB 2 po today, then 1 po q days 2-5 AZITHROMYCIN 11642385711 No Longer Active Carlton Hu MD Acti ve CHERATUSSIN AC 100-10 MG/5ML SYRP take 1 tsp po q4-6 hours prn c ough GUAIFENESIN-CODEINE 14818172693 No Longer Active Carlton Hu MD Active ACETAMINOPHEN-CODEINE #3 300-30 MG TABS 1 PO Q 4-6 HR PRN PAIN 2 ACETAMINOPHEN-CODEINE 67324052147 No Longer Active Carlton rich MD Active LORTAB 7.5-500 MG/15ML ELIX 7.5 ml po q 4 hour prn cough HYDROCODONE-ACETAMINOPHEN 00269926795 No Longer Active Carlton Hu MD Active PREDNISONE 20 MG TAB 1 po bid 3 days, then 1 po q day 3 days 201 05/03/07 PREDNISONE 87081146338 No Longer Active Carlton Hu MD Active ELMIRON 100 MG CAPS 2 tablets in the am and 1 tablet at hs PENTOSAN POLYSULFATE SODIUM 67699427102 Active Gracie [place] Active CEFDINIR 300 MG CAPS by mouth twice a day CEFDI ODILIA 17265047494 No Longer Active Carlton Hu MD Active CEFDINIR 300 MG CAPS by mouth twice a day CEFDI ODILIA 34727308288 No Longer Active Carlton Hu MD Active CEFDINIR 300 MG CAPS by mouth twice a day CEFDI ODILIA 05201881288 No Longer Active Carlton Hu MD Active TESSALON PERLES 100 MG CAP 1 tablet by mouth 3 times daily a s needed for cough BENZONATATE 07846694550 No Longer Active Carlton bustamante MD Active CEFDINIR 300 MG CAPS by mouth twice a day CEFDI ODILIA 97819995449 No Longer Active Carlton Hu MD Active ZITHROMAX Z-REYAN 250 MG TABS 2 today, then 1 daily for 4 days 201 04/09/17 AZITHROMYCIN 11800746558 No Longer Active Hugo Restrepo MD Active PREMARIN 0.625 MG TABS TAKE 1 TAB BY MOUTH DAILY ESTROGENS CONJUGATED 92079383687 Active Carlton Hu MD Active TESSALON PERLES 100 MG CAP 1 tablet by mouth 3 times daily a s needed for cough TESSALON PERLES 100 MG CAP 298358 BENZONATATE I nactive PREDNISONE 20 MG TAB 1 po bid 3 days, then 1 po q day 3 days 201 05/03/07 PREDNISONE 20 MG TAB 960295 PREDNISONE Inactive LORTAB 7.5-500 MG/15ML ELIX 7.5 ml po q 4 hour prn cough LORTAB 7.5-500 MG/15ML ELIX HYDROCODONE-ACETAMINOPHEN Inacti ve ACETAMINOPHEN-CODEINE #3 300-30 MG TABS 1 PO Q 4-6 HR PRN PAIN 2 ACETAMINOPHEN-CODEINE #3 300-30 MG TABS 664987 ACETAMIN OPHEN-CODEINE Inactive CHERATUSSIN AC 100-10 MG/5ML SYRP take 1 tsp po q4-6 hours prn c ough CHERATUSSIN AC 100-10 MG/5ML SYRP 244873 GUAIFENESIN-CO DEINE Inactive ACETAMINOPHEN-CODEINE #3 300-30 MG TABS 1 tablet po q 4-6hrs prn pain ACETAMINOPHEN-CODEINE #3 300-30 MG TABS 922527 ACETAMIN OPHEN-CODEINE Inactive HYDROCODONE-ACETAMINOPHEN 5-325 MG TABS 1 po q 6hr PRN cough 201 05/09/16 HYDROCODONE-ACETAMINOPHEN 5-325 MG TABS 978790 HYDROCODONE-ACETAMINOPHEN Inactive AVELOX 400 MG TABS 1 tab by mouth daily A VELOX 400 MG TABS 470657 MOXIFLOXACIN HCL Inactive CHERATUSSIN AC 100-10 MG/5ML SYRP 1 tsp by mouth every 4 hours as needed for cough CHERATUSSIN AC 100-10 MG/5ML SYRP 072124 GUAIFENESIN-CODEINE Inactive TERBINAFINE HCL 250 MG TABS 1 qDay TERBINAFINE HCL 250 MG TABS 835772 TERBINAFINE HCL Inactive CHERATUSSIN AC 100-10 MG/5ML SYRP 1 tsp by mouth every 4 hours as needed for cough CHERATUSSIN AC 100-10 MG/5ML SYRP 242922 GUAIFENESIN-CODEINE Inactive ACETAMINOPHEN-CODEINE #3 300-30 MG TABS 1 PO Q 4-6 HRS PRN PAIN ACETAMINOPHEN-CODEINE #3 300-30 MG TABS 065419 ACETAMINOPHEN-CODEIN E Inactive CHERATUSSIN AC 100-10 MG/5ML SYRP 1 tsp by mouth every 4 hours as needed for cough CHERATUSSIN AC 100-10 MG/5ML SYRP 910256 GUAIFENESIN-CODEINE Inactive AUGMENTIN 875-125 MG TAB 1 tab by mouth twice daily with food 20 12/03/31 AUGMENTIN 875-125 MG TAB 580701 AMOXICILLIN-POT CLAVULA EFE Inactive CHERATUSSIN AC 100-10 MG/5ML SYRP take one tsp po Q 6hours prn c ough CHERATUSSIN AC 100-10 MG/5ML SYRP 929327 GUAIFENESIN-CO DEINE Inactive PROPRANOLOL HCL 60 MG TABS 1 PO Q D P ROPRANOLOL HCL 60 MG TABS 425413 PROPRANOLOL HCL Inactive TOPAMAX 50 MG TABS take 1 tab po BID for migraines. 20 12/07/10 TOPAMAX 50 MG TABS 857246 TOPIRAMATE Inactive TOPAMAX 25 MG TABS 1 qHS x 1 week, then 1 BID x 1 week, then 1 qAM and 2 qHS x 1 week, then 2 BID (migraine prevention) TOPAMAX 2 5 MG TABS 101591 TOPIRAMATE Inactive LYRICA 75 MG CAPS TAKE 1 CAPSULE BY MOUTH TWICE DAILY LYRICA 75 MG CAPS PREGABALIN Inactive SYMBICORT 160-4.5 MCG/ACT AERO 2 puffs bid with rinse after 2011 SYMBICORT 160-4.5 MCG/ACT AERO BUDESONIDE-FORMOT SÁNCHEZ FUMARATE Inactive PROMETHAZINE-CODEINE 6.25-10 MG/5ML SYRP 1 tsp by mouth ever y 8 hours prn cough PROMETHAZINE-CODEINE 6.25-10 MG/5ML SYRP 001797 PROMETHAZINE-CODEINE Inactive ZITHROMAX Z-REYNA 250 MG TABS 2 today, then 1 daily for 4 days 201 04/09/17 ZITHROMAX Z-REYNA 250 MG TABS 0338833 AZITHROMYCIN Inac tive CEFDINIR 300 MG CAPS by mouth twice a day CEFDINIR 300 MG CAPS 540573 CEFDINIR Inactive CEFDINIR 300 MG CAPS by mouth twice a day CEFDINIR 300 MG CAPS 20020704 CEFDINIR Inactive CEFDINIR 300 MG CAPS by mouth twice a day CEFDINIR 300 MG CAPS 20020704 CEFDINIR Inactive CEFDINIR 300 MG CAPS by mouth twice a day CEFDINIR 300 MG CAPS 424682 CEFDINIR Inactive ZITHROMAX 250 MG TAB 2 po today, then 1 po q days 2-5 ZITHROMAX 250 MG TAB 8321184 AZITHROMYCIN Inactive CEFDINIR 300 MG CAPS by mouth twice a day CEFDINIR 300 MG CAPS 20020704 CEFDINIR Inactive PREDNISONE 20 MG TAB 2 tabs daily for 3 days, 1 t ab daily for 3 days, 1/2 tab daily for 2 days PREDNISONE 20 MG TAB 638310 PREDNISON E Inactive AVELOX 400 MG TABS 1 tab by mouth daily A VELOX 400 MG TABS 059843 MOXIFLOXACIN HCL Inactive AVELOX 400 MG TABS 1 tab by mouth daily A VELOX 400 MG TABS 767437 MOXIFLOXACIN HCL Inactive PREDNISONE 20 MG TAB Take 3 tabs daily for 3 days , 2 tabs daily for 3 days, 1 tab daily for 3 days, 1/2 tab daily for 3 days PREDNISONE 20 MG TAB 613690 PREDNISONE Inactive LEVAQUIN 500 MG TABS take one po QD LEVAQUIN 50 0 MG TABS 425526 LEVOFLOXACIN Inactive AZITHROMYCIN 250 MG TABS 2 po qd x 1 day, then 1 po qd x 4 days AZITHROMYCIN 250 MG TABS 1424627 AZITHROMYCIN Inactiv e MEDROL (REYNA) 4 MG TABS 6 tabs on day 1, 5 tabs on d ay 2, 4 tabs on day 3, 3 tabs on day 4, 2 tabs on day 5, 1 tab on day 6 MEDROL (REYNA) 4 MG TABS METHYLPREDNISOLONE Inactive CHERATUSSIN AC 100-10 MG/5ML SYRP 5ml po q6hr PRN Cough CHERATUSSIN AC 100-10 MG/5ML SYRP 710177 GUAIFENESIN-CODEINE Inacti ve TRIAMCINOLONE ACETONIDE 0.1 % CREA apply three times daily prn r beatrice TRIAMCINOLONE ACETONIDE 0.1 % CREA 6085214 TRIAMCINOLONE ACETONIDE Inactive AZITHROMYCIN 250 MG TABS 2 po qd x 1 day, then 1 po qd x 4 days AZITHROMYCIN 250 MG TABS 1711195 AZITHROMYCIN Inactiv e MEDROL (REYNA) 4 MG [...] days 20 13/03/08 AMOXICILLIN 500 MG CAP 751342 AMOXICILLIN Inactive Vital Signs Date Name Value [...] ... - Chemistry sodium, serum 143 mmol/L 417-556 9592/01/24 potassium, serum 4.1 mmol/L 3.5-5.2 chloride, serum [...] 0.60 mg/dL 0.00-1.00 cholesterol, serum 227 mg/dL 808-611 1305/01/24 triglyceride, serum, fasting 97 mg/dL 30-200 HDL [...] mg/dL Encounters Code Encounter Date Provider Facility CPT-[id number] Level 3 Est. Patient 10:03:07 CDT Perez Mora MD [facility] CPT-34096 Level 3 Est. Patient 19:50:35 [employer] Carlton rich MD [facility] CPT-97476 Level 4 Est. Patient 18:05:01 [employer] Carlton rich MD [facility] CPT-67025 Level 3 Est. Patient 10:45:55 [employer] Hugo Restrepo MD [facility] CPT-58258 Level 3 Est. Patient 14:12:49 CDT Griffin HERNANDEZ [facility] CPT-71456 Level 3 Est. Patient 17:37:24 CDT Carlton rich MD [facility] CPT-78005 Level 3 Est. Patient 16:51:54 CDT Carlton rich MD [facility] CPT-96836 Level 3 Est. Patient 12:18:11 CDT Hugo Restrepo MD [facility] CPT-66927 Level 3 Est. Patient 11:30:25 CDT Marcy crisostomo MD, PhD [facility] CPT-65847 Level 3 Est. Patient 12:00:47 [employer] Carlton rich MD [facility] CPT-54091 Level 3 Est. Patient 16:31:06 [employer] Carlton rich MD [facility] CPT-79040 Level 3 Est. Patient 16:23:24 WEL[employer]ER Ridge tam DO [facility] CPT-35458 Level 3 Est. Patient 12:34:12 CDT Carlton rich MD [facility] CPT-88356 Level 2 Est. Patient 15:43:33 CDT Robi armstrong MD [facility] CPT-66939 Level 4 Est. Patient 14:04:44 CDT Carlton rich MD [facility] CPT-95054 Level 3 Est. Patient 05:47:59 CDT Ridge tam DO [facility] CPT-60930 Level 3 Est. Patient 13:12:53 [employer] Carlton rich MD [facility] CPT-67730 Level 3 Est. Patient 14:26:53 CDT Hugo Restrepo MD [facility] Procedures Code Procedure Name Date Entry Date Standard Desc ription CPT-07641 Fluzone Quadrivalent Intramuscular Suspe nsion 0.5 ML 14:31:55 CDT CPT-14372 Abx/Therapy Injection 13:28:47 WELT R[employer] CPT-J2930 Solu Medrol 125 mg (Methyl Prednisolone Sodium Succinate) 12:00:47 WELT R[employer]ER CPT-84423 Venipuncture Draw Fee 11:33:31 CDT CPT-06918 EKG Trac and Interp 11:21:09 CDT CPT-84195 Chest 2V Frontal and Lat 11:21:09 CDT 12/15 CPT-86089 Venipuncture Draw Fee 08:02:34 CDT CPT-12654 Chest 2V Frontal and Lat 05:47:59 CDT 06/05
--- OUTSIDE RECORDS SUMMARY | 2019-10-08 10:27 | XMS REPORT | Clinical Summary ---
[...] daily x 10 days 20 13/03/08 AMOXICILLIN [id number] Active Carlton Hu MD Act nael CHERATUSSIN AC 100-10 MG/5ML SYRP 1 tsp by mouth every 4 hours as needed for cough GUAIFENESIN-CODEINE 89162525736 Active Carlton banks MD Active CYCLOBENZAPRINE HCL 10 MG TABS 1 tablet by mouth BID prn had pain 2 CYCLOBENZAPRINE HCL 04621201801 Active Carlton Hu MD A ctive PROMETHAZINE-CODEINE 6.25-10 MG/5ML SYRP 1 tsp by mouth ever y 8 hours prn cough PROMETHAZINE-CODEINE 98753460388 No Longer Active Robert Hu MD Active MEDROL (REYNA) 4 MG TABS 6 pills x 1 day, then 5 pill s x 1 day then 4 pills x 1 day, then 3 pills x 1 day, then 2 pills x 1 day, then 1 pill x 1 day, then stop METHYLPREDNISOLONE 38945852949 No Longer Active Parris Mora MD Active AZITHROMYCIN 250 MG TABS 2 po qd x 1 day, then 1 po qd x 4 days AZITHROMYCIN 32744261012 No Longer Active Perez Mora MD Active SYMBICORT 160-4.5 MCG/ACT AERO 2 puffs bid with rinse after 2011 BUDESONIDE-FORMOTEROL FUMARATE 29357637084 No Longer Active Perez Mora MD Active LYRICA 75 MG CAPS TAKE 1 CAPSULE BY MOUTH TWICE DAILY 2013 PREGABALIN 41683203428 No Longer Active Carlton Hu MD Active LYRICA 100 MG CAPS Take 1 tab po BID for fibromyalgia PREGABALIN 81591884994 Active Carlton Hu MD Active TOPAMAX 25 MG TABS 1 qHS x 1 week, then 1 BID x 1 week, then 1 qAM and 2 qHS x 1 week, then 2 BID (migraine prevention) TOPIRAMAT E 30679202383 No Longer Active Jerica Goeringer RMA Active TOPAMAX 50 MG TABS take 1 tab po BID for migraines. 12/07/10 TOPIRAMATE 79829361512 No Longer Active Jerica Goeringer RMA Ac tive TOPAMAX 100 MG TABS Take 1 tablet po bid TOPIRAMATE 4999 4630699 Active Carlton Hu MD Active TRIAMCINOLONE ACETONIDE 0.1 % CREA apply three times daily prn r beatrice TRIAMCINOLONE ACETONIDE 50562930011 No Longer Active Carlton Hu MD Active PAXIL 40 MG TAB take 1 tab po qday for depression PAROXETINE HCL 76731040830 Active Carlton Hu MD Active CYMBALTA 30 MG CPEP 1 cap by mouth daily DULOXE SNEHA HCL 90392679077 Active Carlton Hu MD Active CHERATUSSIN AC 100-10 MG/5ML SYRP 5ml po q6hr PRN Cough GUAIFENESIN-CODEINE 64737676980 No Longer Active Carlton Hu MD Active MEDROL (REYNA) 4 MG TABS 6 tabs on day 1, 5 tabs on d ay 2, 4 tabs on day 3, 3 tabs on day 4, 2 tabs on day 5, 1 tab on day 6 METHYLPREDNISOLONE 02642877664 No Longer Active Perez Mora MD Active AZITHROMYCIN 250 MG TABS 2 po qd x 1 day, then 1 po qd x 4 days AZITHROMYCIN 65090699331 No Longer Active Perez Mora MD Active PROPRANOLOL HCL 60 MG TABS 1 PO Q D PROPRANOL OL HCL 75617930797 No Longer Active Perez Mora MD Active CHERATUSSIN AC 100-10 MG/5ML SYRP take one tsp po Q 6hours prn c ough GUAIFENESIN-CODEINE 49053286320 No Longer Active Perez Means Active AUGMENTIN 875-125 MG TAB 1 tab by mouth twice daily with food 12/03/31 AMOXICILLIN-POT CLAVULANATE 06355484930 No Longer Active Chanel Mora MD Active CHERATUSSIN AC 100-10 MG/5ML SYRP 1 tsp by mouth every 4 hours as needed for cough GUAIFENESIN-CODEINE 94104540587 No Longer Activ e Hugo Restrepo MD Active ACETAMINOPHEN-CODEINE #3 300-30 MG TABS 1 PO Q 4-6 HRS PRN PAIN ACETAMINOPHEN-CODEINE 06372138392 No Longer Active Hugo Restrepo MD Active LEVAQUIN 500 MG TABS take one po QD LEVOFLOXACI N 77955675186 No Longer Active Griffin HERNANDEZ Active PREDNISONE 20 MG TAB Take 3 tabs daily for 3 days , 2 tabs daily for 3 days, 1 tab daily for 3 days, 1/2 tab daily for 3 days P REDNISONE 35572871445 No Longer Active Carlton Hu MD Active AVELOX 400 MG TABS 1 tab by mouth daily MOXIFLO XACIN HCL 17538880074 No Longer Active Carlton Hu MD Active CHERATUSSIN AC 100-10 MG/5ML SYRP 1 tsp by mouth every 4 hours as needed for cough GUAIFENESIN-CODEINE 30915969798 No Longer Activ e Hugo Restrepo MD Active AVELOX 400 MG TABS 1 tab by mouth daily MOXIFLO XACIN HCL 49448458011 No Longer Active Marcy De La Rosa MD PhD Active TERBINAFINE HCL 250 MG TABS 1 qDay TERBINAF INE HCL 61325115538 No Longer Active Marcy De La Rosa MD PhD Active CHERATUSSIN AC 100-10 MG/5ML SYRP 1 tsp by mouth every 4 hours as needed for cough GUAIFENESIN-CODEINE 68749541344 No Longer Activ e Marcy De La Rosa MD PhD Active AVELOX 400 MG TABS 1 tab by mouth daily MOXIFLO XACIN HCL 43071958337 No Longer Active Marcy De La Rosa MD PhD Active HYDROCODONE-ACETAMINOPHEN 5-325 MG TABS 1 po q 6hr PRN cough 201 05/09/16 HYDROCODONE-ACETAMINOPHEN 87245715288 No Longer Active Marcy De La Rosa MD PhD Active PREDNISONE 20 MG TAB 2 tabs daily for 3 days, 1 t ab daily for 3 days, 1/2 tab daily for 2 days PREDNISONE 32881162989 No Longer Active Carlton Hu MD Active CEFDINIR 300 MG CAPS by mouth twice a day CEFDI ODILIA 97161911434 No Longer Active Carlton Hu MD Active ZOCOR 40 MG TAB 1 tab by mouth daily SIMVASTATIN 42656726127 Active Carlton Hu MD Active HYDROCHLOROTHIAZIDE 25 MG TABS 1 TAB PO DAILY H YDROCHLOROTHIAZIDE 83443909661 Active Carlton Hu MD Active ACETAMINOPHEN-CODEINE #3 300-30 MG TABS 1 tablet po q 4-6hrs prn pain ACETAMINOPHEN-CODEINE 11516987471 No Longer Active Ridge Bess DO Active ZITHROMAX 250 MG TAB 2 po today, then 1 po q days 2-5 AZITHROMYCIN 88784515952 No Longer Active Carlton Hu MD Acti ve CHERATUSSIN AC 100-10 MG/5ML SYRP take 1 tsp po q4-6 hours prn c ough GUAIFENESIN-CODEINE 61327359819 No Longer Active Carlton Hu MD Active ACETAMINOPHEN-CODEINE #3 300-30 MG TABS 1 PO Q 4-6 HR PRN PAIN 2 ACETAMINOPHEN-CODEINE 83511208379 No Longer Active Carlton rich MD Active LORTAB 7.5-500 MG/15ML ELIX 7.5 ml po q 4 hour prn cough HYDROCODONE-ACETAMINOPHEN 65872103963 No Longer Active Carlton Hu MD Active PREDNISONE 20 MG TAB 1 po bid 3 days, then 1 po q day 3 days 201 05/03/07 PREDNISONE 37218730984 No Longer Active Carlton Hu MD Active ELMIRON 100 MG CAPS 2 tablets in the am and 1 tablet at hs PENTOSAN POLYSULFATE SODIUM 36647297102 Active Gracie Weatherford Active CEFDINIR 300 MG CAPS by mouth twice a day CEFDI ODILIA 53064790978 No Longer Active Carlton Hu MD Active CEFDINIR 300 MG CAPS by mouth twice a day CEFDI ODILIA 28828087807 No Longer Active Carlton Hu MD Active CEFDINIR 300 MG CAPS by mouth twice a day CEFDI ODILIA 73020021199 No Longer Active Carlton Hu MD Active TESSALON PERLES 100 MG CAP 1 tablet by mouth 3 times daily a s needed for cough BENZONATATE 95785249428 No Longer Active Carlton bustamante MD Active CEFDINIR 300 MG CAPS by mouth twice a day CEFDI ODILIA 34651100411 No Longer Active Carlton Hu MD Active ZITHROMAX Z-REYNA 250 MG TABS 2 today, then 1 daily for 4 days 201 04/09/17 AZITHROMYCIN 52605455632 No Longer Active Hugo Restrepo MD Active PREMARIN 0.625 MG TABS TAKE 1 TAB BY MOUTH DAILY ESTROGENS CONJUGATED 48061283429 Active Carlton Hu MD Active TESSALON PERLES 100 MG CAP 1 tablet by mouth 3 times daily a s needed for cough TESSALON PERLES 100 MG CAP 585651 BENZONATATE I nactive PREDNISONE 20 MG TAB 1 po bid 3 days, then 1 po q day 3 days 201 05/03/07 PREDNISONE 20 MG TAB 735701 PREDNISONE Inactive LORTAB 7.5-500 MG/15ML ELIX 7.5 ml po q 4 hour prn cough LORTAB 7.5-500 MG/15ML ELIX HYDROCODONE-ACETAMINOPHEN Inacti ve ACETAMINOPHEN-CODEINE #3 300-30 MG TABS 1 PO Q 4-6 HR PRN PAIN 2 ACETAMINOPHEN-CODEINE #3 300-30 MG TABS 984024 ACETAMIN OPHEN-CODEINE Inactive CHERATUSSIN AC 100-10 MG/5ML SYRP take 1 tsp po q4-6 hours prn c ough CHERATUSSIN AC 100-10 MG/5ML SYRP 151114 GUAIFENESIN-CO DEINE Inactive ACETAMINOPHEN-CODEINE #3 300-30 MG TABS 1 tablet po q 4-6hrs prn pain ACETAMINOPHEN-CODEINE #3 300-30 MG TABS 763848 ACETAMIN OPHEN-CODEINE Inactive HYDROCODONE-ACETAMINOPHEN 5-325 MG TABS 1 po q 6hr PRN cough 201 05/09/16 HYDROCODONE-ACETAMINOPHEN 5-325 MG TABS 732519 HYDROCODONE-ACETAMINOPHEN Inactive AVELOX 400 MG TABS 1 tab by mouth daily A VELOX 400 MG TABS 993450 MOXIFLOXACIN HCL Inactive CHERATUSSIN AC 100-10 MG/5ML SYRP 1 tsp by mouth every 4 hours as needed for cough CHERATUSSIN AC 100-10 MG/5ML SYRP 604188 GUAIFENESIN-CODEINE Inactive TERBINAFINE HCL 250 MG TABS 1 qDay TERBINAFINE HCL 250 MG TABS 477001 TERBINAFINE HCL Inactive CHERATUSSIN AC 100-10 MG/5ML SYRP 1 tsp by mouth every 4 hours as needed for cough CHERATUSSIN AC 100-10 MG/5ML SYRP 992351 GUAIFENESIN-CODEINE Inactive ACETAMINOPHEN-CODEINE #3 300-30 MG TABS 1 PO Q 4-6 HRS PRN PAIN ACETAMINOPHEN-CODEINE #3 300-30 MG TABS 775412 ACETAMINOPHEN-CODEIN E Inactive CHERATUSSIN AC 100-10 MG/5ML SYRP 1 tsp by mouth every 4 hours as needed for cough CHERATUSSIN AC 100-10 MG/5ML SYRP 115605 GUAIFENESIN-CODEINE Inactive AUGMENTIN 875-125 MG TAB 1 tab by mouth twice daily with food 20 12/03/31 AUGMENTIN 875-125 MG TAB 161494 AMOXICILLIN-POT CLAVULA EFE Inactive CHERATUSSIN AC 100-10 MG/5ML SYRP take one tsp po Q 6hours prn c ough CHERATUSSIN AC 100-10 MG/5ML SYRP 296269 GUAIFENESIN-CO DEINE Inactive PROPRANOLOL HCL 60 MG TABS 1 PO Q D P ROPRANOLOL HCL 60 MG TABS 390171 PROPRANOLOL HCL Inactive TOPAMAX 50 MG TABS take 1 tab po BID for migraines. 20 12/07/10 TOPAMAX 50 MG TABS 513449 TOPIRAMATE Inactive TOPAMAX 25 MG TABS 1 qHS x 1 week, then 1 BID x 1 week, then 1 qAM and 2 qHS x 1 week, then 2 BID (migraine prevention) TOPAMAX 2 5 MG TABS 519118 TOPIRAMATE Inactive LYRICA 75 MG CAPS TAKE 1 CAPSULE BY MOUTH TWICE DAILY LYRICA 75 MG CAPS PREGABALIN Inactive SYMBICORT 160-4.5 MCG/ACT AERO 2 puffs bid with rinse after 2011 SYMBICORT 160-4.5 MCG/ACT AERO BUDESONIDE-FORMOT SÁNCHEZ FUMARATE Inactive PROMETHAZINE-CODEINE 6.25-10 MG/5ML SYRP 1 tsp by mouth ever y 8 hours prn cough PROMETHAZINE-CODEINE 6.25-10 MG/5ML SYRP 490782 PROMETHAZINE-CODEINE Inactive ZITHROMAX Z-REYNA 250 MG TABS 2 today, then 1 daily for 4 days 201 04/09/17 ZITHROMAX Z-REYNA 250 MG TABS 6525200 AZITHROMYCIN Inac tive CEFDINIR 300 MG CAPS by mouth twice a day CEFDINIR 300 MG CAPS 956742 CEFDINIR Inactive CEFDINIR 300 MG CAPS by mouth twice a day CEFDINIR 300 MG CAPS 20020704 CEFDINIR Inactive CEFDINIR 300 MG CAPS by mouth twice a day CEFDINIR 300 MG CAPS 20020704 CEFDINIR Inactive CEFDINIR 300 MG CAPS by mouth twice a day CEFDINIR 300 MG CAPS 231370 CEFDINIR Inactive ZITHROMAX 250 MG TAB 2 po today, then 1 po q days 2-5 ZITHROMAX 250 MG TAB 6247447 AZITHROMYCIN Inactive CEFDINIR 300 MG CAPS by mouth twice a day CEFDINIR 300 MG CAPS 20020704 CEFDINIR Inactive PREDNISONE 20 MG TAB 2 tabs daily for 3 days, 1 t ab daily for 3 days, 1/2 tab daily for 2 days PREDNISONE 20 MG TAB 809075 PREDNISON E Inactive AVELOX 400 MG TABS 1 tab by mouth daily A VELOX 400 MG TABS 856552 MOXIFLOXACIN HCL Inactive AVELOX 400 MG TABS 1 tab by mouth daily A VELOX 400 MG TABS 720272 MOXIFLOXACIN HCL Inactive PREDNISONE 20 MG TAB Take 3 tabs daily for 3 days , 2 tabs daily for 3 days, 1 tab daily for 3 days, 1/2 tab daily for 3 days PREDNISONE 20 MG TAB 820076 PREDNISONE Inactive LEVAQUIN 500 MG TABS take one po QD LEVAQUIN 50 0 MG TABS 032102 LEVOFLOXACIN Inactive AZITHROMYCIN 250 MG TABS 2 po qd x 1 day, then 1 po qd x 4 days AZITHROMYCIN 250 MG TABS 4943883 AZITHROMYCIN Inactiv e MEDROL (REYNA) 4 MG TABS 6 tabs on day 1, 5 tabs on d ay 2, 4 tabs on day 3, 3 tabs on day 4, 2 tabs on day 5, 1 tab on day 6 MEDROL (REYNA) 4 MG TABS METHYLPREDNISOLONE Inactive CHERATUSSIN AC 100-10 MG/5ML SYRP 5ml po q6hr PRN Cough CHERATUSSIN AC 100-10 MG/5ML SYRP 474176 GUAIFENESIN-CODEINE Inacti ve TRIAMCINOLONE ACETONIDE 0.1 % CREA apply three times daily prn r beatrice TRIAMCINOLONE ACETONIDE 0.1 % CREA 7129903 TRIAMCINOLONE ACETONIDE Inactive AZITHROMYCIN 250 MG TABS 2 po qd x 1 day, then 1 po qd x 4 days AZITHROMYCIN 250 MG TABS 4723073 AZITHROMYCIN Inactiv e MEDROL (REYNA) 4 MG [...] ... - Chemistry sodium, serum 143 mmol/L 299-285 5087/01/24 potassium, serum 4.1 mmol/L 3.5-5.2 chloride, serum [...] 0.60 mg/dL 0.00-1.00 cholesterol, serum 227 mg/dL 676-371 0520/01/24 triglyceride, serum, fasting 97 mg/dL 30-200 HDL [...] mg/dL Encounters Code Encounter Date Provider Facility CPT-36229 Level 3 Est. Patient 10:03:07 CDT Perez Mora MD [facility] CPT-57730 Level 3 Est. Patient 19:50:35 DIRECTOR AUTOMOTIVE Carlton rich MD [facility] CPT-91496 Level 4 Est. Patient 18:05:01 DIRECTOR AUTOMOTIVE Carlton rich MD [facility] CPT-28581 Level 3 Est. Patient 10:45:55 DIRECTOR AUTOMOTIVE Hugo Restrepo MD [facility] CPT-39546 Level 3 Est. Patient 14:12:49 CDT Griffin HERNANDEZ [facility] CPT-18930 Level 3 Est. Patient 17:37:24 CDT Carlton rich MD [facility] CPT-81106 Level 3 Est. Patient 16:51:54 CDT Carlton rich MD [facility] CPT-45106 Level 3 Est. Patient 12:18:11 CDT Hugo Restrepo MD [facility] CPT-17680 Level 3 Est. Patient 11:30:25 CDT Marcy crisostomo MD PhD [facility] CPT-53170 Level 3 Est. Patient 12:00:47 DIRECTOR AUTOMOTIVE Carlton rich MD [facility] CPT-70288 Level 3 Est. Patient 16:31:06 DIRECTOR AUTOMOTIVE Carlton rich MD [facility] CPT-78294 Level 3 Est. Patient 16:23:24 DIRECTOR AUTOMOTIVE Ridge tam [facility] CPT-88602 Level 3 Est. Patient 12:34:12 CDT Carlton rich MD [facility] CPT-75256 Level 2 Est. Patient 15:43:33 CDT Robi armstrong MD [facility] CPT-82903 Level 4 Est. Patient 14:04:44 CDT Carlton rich MD [facility] CPT-84172 Level 3 Est. Patient 05:47:59 CDT Ridge tam [facility] CPT-10755 Level 3 Est. Patient 13:12:53 DIRECTOR AUTOMOTIVE Carlton rich MD [facility] CPT-91750 Level 3 Est. Patient 14:26:53 CDT Hugo Restrepo MD [facility] Procedures Code Procedure Name Date Entry Date Standard Desc ription CPT-91274 Fluzone Quadrivalent Intramuscular Suspe nsion 0.5 ML 14:31:55 CDT CPT-51876 Abx/Therapy Injection 13:28:47 DIRECTOR AUTOMOTIVE CPT-J2930 Solu Medrol 125 mg (Methyl Prednisolone Sodium Succinate) 12:00:47 DIRECTOR AUTOMOTIVE CPT-67738 Venipuncture Draw Fee 11:33:31 CDT CPT-20747 EKG Trac and Interp 11:21:09 CDT CPT-01175 Chest 2V Frontal and Lat 11:21:09 CDT 12/15 CPT-26797 Venipuncture Draw Fee 08:02:34 CDT CPT-00550 Chest 2V Frontal and Lat 05:47:59 CDT 06/05
--- OUTSIDE RECORDS SUMMARY | 2019-10-08 10:27 | XMS REPORT | Clinical Summary ---
Author Author Caitlin, Juliana Martinez Organization [facility] Address Unknown Phone Unavailable Allergies, Adverse Reactions, [...] BID prn had pain 2 CYCLOBENZAPRINE HCL [id number] Active Carlton Hu MD A ctive PROMETHAZINE-CODEINE 6.25-10 MG/5ML SYRP 1 tsp by mouth ever y 8 hours prn cough PROMETHAZINE-CODEINE 44227308427 No Longer Active Robert Hu MD Active MEDROL (REYNA) 4 MG TABS 6 pills x 1 day, then 5 pill s x 1 day then 4 pills x 1 day, then 3 pills x 1 day, then 2 pills x 1 day, then 1 pill x 1 day, then stop METHYLPREDNISOLONE 06987175958 No Longer Active Parris Mora MD Active AZITHROMYCIN 250 MG TABS 2 po qd x 1 day, then 1 po qd x 4 days AZITHROMYCIN 61165404534 No Longer Active Perez Mora MD Active SYMBICORT 160-4.5 MCG/ACT AERO 2 puffs bid with rinse after 2011 BUDESONIDE-FORMOTEROL FUMARATE 00801255721 No Longer Active Perez Mora MD Active LYRICA 75 MG CAPS TAKE 1 CAPSULE BY MOUTH TWICE DAILY 2013 PREGABALIN 48494606593 No Longer Active Carlton Hu MD Active LYRICA 100 MG CAPS Take 1 tab po BID for fibromyalgia PREGABALIN 49774857309 Active Carlton Hu MD Active TOPAMAX 25 MG TABS 1 qHS x 1 week, then 1 BID x 1 week, then 1 qAM and 2 qHS x 1 week, then 2 BID (migraine prevention) TOPIRAMAT E 47372959193 No Longer Active Jerica FUENTES Active TOPAMAX 50 MG TABS take 1 tab po BID for migraines. 12/07/10 TOPIRAMATE 76489527544 No Longer Active Jerica FUENTES Ac tive TOPAMAX 100 MG TABS Take 1 tablet po bid TOPIRAMATE 4999 2918727 Active Carlton Hu MD Active TRIAMCINOLONE ACETONIDE 0.1 % CREA apply three times daily prn r beatrice TRIAMCINOLONE ACETONIDE 11310438527 No Longer Active Carlton Hu MD Active PAXIL 40 MG TAB take 1 tab po qday for depression PAROXETINE HCL 98128960909 Active Carlton Hu MD Active CYMBALTA 30 MG CPEP 1 cap by mouth daily DULOXE SNEHA HCL 42067173441 Active Carlton Hu MD Active CHERATUSSIN AC 100-10 MG/5ML SYRP 5ml po q6hr PRN Cough GUAIFENESIN-CODEINE 40560188900 No Longer Active Carlton Hu MD Active MEDROL (REYNA) 4 MG TABS 6 tabs on day 1, 5 tabs on d ay 2, 4 tabs on day 3, 3 tabs on day 4, 2 tabs on day 5, 1 tab on day 6 METHYLPREDNISOLONE 06013184308 No Longer Active Perez Mora MD Active AZITHROMYCIN 250 MG TABS 2 po qd x 1 day, then 1 po qd x 4 days AZITHROMYCIN 48364691353 No Longer Active Perez Mora MD Active PROPRANOLOL HCL 60 MG TABS 1 PO Q D PROPRANOL OL HCL 64088566078 No Longer Active Perez Mora MD Active CHERATUSSIN AC 100-10 MG/5ML SYRP take one tsp po Q 6hours prn c ough GUAIFENESIN-CODEINE 84292491564 No Longer Active Perez Means Active AUGMENTIN 875-125 MG TAB 1 tab by mouth twice daily with food 20 12/03/31 AMOXICILLIN-POT CLAVULANATE 37605875537 No Longer Active Chanel Mora MD Active CHERATUSSIN AC 100-10 MG/5ML SYRP 1 tsp by mouth every 4 hours as needed for cough GUAIFENESIN-CODEINE 94146449240 No Longer Activ e Hugo Restrepo MD Active ACETAMINOPHEN-CODEINE #3 300-30 MG TABS 1 PO Q 4-6 HRS PRN PAIN ACETAMINOPHEN-CODEINE 48358399374 No Longer Active Hugo Restrepo MD Active LEVAQUIN 500 MG TABS take one po QD LEVOFLOXACI N 25831383977 No Longer Active Griffin HERNANDEZ Active PREDNISONE 20 MG TAB Take 3 tabs daily for 3 days , 2 tabs daily for 3 days, 1 tab daily for 3 days, 1/2 tab daily for 3 days P REDNISONE 78289510674 No Longer Active Carlton Hu MD Active AVELOX 400 MG TABS 1 tab by mouth daily MOXIFLO XACIN HCL 67749624791 No Longer Active Carlton Hu MD Active CHERATUSSIN AC 100-10 MG/5ML SYRP 1 tsp by mouth every 4 hours as needed for cough GUAIFENESIN-CODEINE 30269232303 No Longer Activ e Hugo Restrepo MD Active AVELOX 400 MG TABS 1 tab by mouth daily MOXIFLO XACIN HCL 28433912650 No Longer Active Marcy De La Rosa MD PhD Active TERBINAFINE HCL 250 MG TABS 1 qDay TERBINAF INE HCL 74067109152 No Longer Active Marcy De La Rosa MD PhD Active CHERATUSSIN AC 100-10 MG/5ML SYRP 1 tsp by mouth every 4 hours as needed for cough GUAIFENESIN-CODEINE 34882988373 No Longer Activ e Marcy De La Rosa MD PhD Active AVELOX 400 MG TABS 1 tab by mouth daily MOXIFLO XACIN HCL 96327419922 No Longer Active Marcy De La Rosa MD PhD Active HYDROCODONE-ACETAMINOPHEN 5-325 MG TABS 1 po q 6hr PRN cough 201 05/09/16 HYDROCODONE-ACETAMINOPHEN 26374025806 No Longer Active Marcy De La Rosa MD PhD Active PREDNISONE 20 MG TAB 2 tabs daily for 3 days, 1 t ab daily for 3 days, 1/2 tab daily for 2 days PREDNISONE 83381569781 No Longer Active Carlton Hu MD Active CEFDINIR 300 MG CAPS by mouth twice a day CEFDI ODILIA 70017338199 No Longer Active Carlton Hu MD Active ZOCOR 40 MG TAB 1 tab by mouth daily SIMVASTATIN 19201692773 Active Carlton Hu MD Active HYDROCHLOROTHIAZIDE 25 MG TABS 1 TAB PO DAILY H YDROCHLOROTHIAZIDE 24189995809 Active Carlton Hu MD Active ACETAMINOPHEN-CODEINE #3 300-30 MG TABS 1 tablet po q 4-6hrs prn pain ACETAMINOPHEN-CODEINE 81590061215 No Longer Active Ridge Bess DO Active ZITHROMAX 250 MG TAB 2 po today, then 1 po q days 2-5 AZITHROMYCIN 89681246838 No Longer Active Carlton Hu MD Acti ve CHERATUSSIN AC 100-10 MG/5ML SYRP take 1 tsp po q4-6 hours prn c ough GUAIFENESIN-CODEINE 58643607477 No Longer Active Carlton Hu MD Active ACETAMINOPHEN-CODEINE #3 300-30 MG TABS 1 PO Q 4-6 HR PRN PAIN 2 ACETAMINOPHEN-CODEINE 26455805586 No Longer Active Carlton rich MD Active LORTAB 7.5-500 MG/15ML ELIX 7.5 ml po q 4 hour prn cough HYDROCODONE-ACETAMINOPHEN 28449536753 No Longer Active Carlton Hu MD Active PREDNISONE 20 MG TAB 1 po bid 3 days, then 1 po q day 3 days 201 05/03/07 PREDNISONE 20363182315 No Longer Active Carlton Hu MD Active ELMIRON 100 MG CAPS 2 tablets in the am and 1 tablet at hs PENTOSAN POLYSULFATE SODIUM 19884358659 Active Gracie [place] Active CEFDINIR 300 MG CAPS by mouth twice a day CEFDI ODILIA 16300198518 No Longer Active Carlton Hu MD Active CEFDINIR 300 MG CAPS by mouth twice a day CEFDI ODILIA 57616946600 No Longer Active Carlton Hu MD Active CEFDINIR 300 MG CAPS by mouth twice a day CEFDI ODILIA 25251493702 No Longer Active Carlton Hu MD Active TESSALON PERLES 100 MG CAP 1 tablet by mouth 3 times daily a s needed for cough BENZONATATE 25841115922 No Longer Active Carlton bustamante MD Active CEFDINIR 300 MG CAPS by mouth twice a day CEFDI ODILIA 18974351226 No Longer Active Carlton Hu MD Active ZITHROMAX Z-REYNA 250 MG TABS 2 today, then 1 daily for 4 days 201 04/09/17 AZITHROMYCIN 24498523475 No Longer Active Hugo Restrepo MD Active PREMARIN 0.625 MG TABS TAKE 1 TAB BY MOUTH DAILY ESTROGENS CONJUGATED 71884458423 Active Carlton Hu MD Active TESSALON PERLES 100 MG CAP 1 tablet by mouth 3 times daily a s needed for cough TESSALON PERLES 100 MG CAP 632613 BENZONATATE I nactive PREDNISONE 20 MG TAB 1 po bid 3 days, then 1 po q day 3 days 201 05/03/07 PREDNISONE 20 MG TAB 533668 PREDNISONE Inactive LORTAB 7.5-500 MG/15ML ELIX 7.5 ml po q 4 hour prn cough LORTAB 7.5-500 MG/15ML ELIX HYDROCODONE-ACETAMINOPHEN Inacti ve ACETAMINOPHEN-CODEINE #3 300-30 MG TABS 1 PO Q 4-6 HR PRN PAIN 2 ACETAMINOPHEN-CODEINE #3 300-30 MG TABS 910672 ACETAMIN OPHEN-CODEINE Inactive CHERATUSSIN AC 100-10 MG/5ML SYRP take 1 tsp po q4-6 hours prn c ough CHERATUSSIN AC 100-10 MG/5ML SYRP 066983 GUAIFENESIN-CO DEINE Inactive ACETAMINOPHEN-CODEINE #3 300-30 MG TABS 1 tablet po q 4-6hrs prn pain ACETAMINOPHEN-CODEINE #3 300-30 MG TABS 204155 ACETAMIN OPHEN-CODEINE Inactive HYDROCODONE-ACETAMINOPHEN 5-325 MG TABS 1 po q 6hr PRN cough 201 05/09/16 HYDROCODONE-ACETAMINOPHEN 5-325 MG TABS 370934 HYDROCODONE-ACETAMINOPHEN Inactive AVELOX 400 MG TABS 1 tab by mouth daily A VELOX 400 MG TABS 352394 MOXIFLOXACIN HCL Inactive CHERATUSSIN AC 100-10 MG/5ML SYRP 1 tsp by mouth every 4 hours as needed for cough CHERATUSSIN AC 100-10 MG/5ML SYRP 795428 GUAIFENESIN-CODEINE Inactive TERBINAFINE HCL 250 MG TABS 1 qDay TERBINAFINE HCL 250 MG TABS 279964 TERBINAFINE HCL Inactive CHERATUSSIN AC 100-10 MG/5ML SYRP 1 tsp by mouth every 4 hours as needed for cough CHERATUSSIN AC 100-10 MG/5ML SYRP 005856 GUAIFENESIN-CODEINE Inactive ACETAMINOPHEN-CODEINE #3 300-30 MG TABS 1 PO Q 4-6 HRS PRN PAIN ACETAMINOPHEN-CODEINE #3 300-30 MG TABS 447944 ACETAMINOPHEN-CODEIN E Inactive CHERATUSSIN AC 100-10 MG/5ML SYRP 1 tsp by mouth every 4 hours as needed for cough CHERATUSSIN AC 100-10 MG/5ML SYRP 609214 GUAIFENESIN-CODEINE Inactive AUGMENTIN 875-125 MG TAB 1 tab by mouth twice daily with food 20 12/03/31 AUGMENTIN 875-125 MG TAB 188014 AMOXICILLIN-POT CLAVULA EFE Inactive CHERATUSSIN AC 100-10 MG/5ML SYRP take one tsp po Q 6hours prn c ough CHERATUSSIN AC 100-10 MG/5ML SYRP 320916 GUAIFENESIN-CO DEINE Inactive PROPRANOLOL HCL 60 MG TABS 1 PO Q D P ROPRANOLOL HCL 60 MG TABS 307945 PROPRANOLOL HCL Inactive TOPAMAX 50 MG TABS take 1 tab po BID for migraines. 12/07/10 TOPAMAX 50 MG TABS 253639 TOPIRAMATE Inactive TOPAMAX 25 MG TABS 1 qHS x 1 week, then 1 BID x 1 week, then 1 qAM and 2 qHS x 1 week, then 2 BID (migraine prevention) TOPAMAX 2 5 MG TABS 591109 TOPIRAMATE Inactive LYRICA 75 MG CAPS TAKE 1 CAPSULE BY MOUTH TWICE DAILY LYRICA 75 MG CAPS PREGABALIN Inactive SYMBICORT 160-4.5 MCG/ACT AERO 2 puffs bid with rinse after 2011 SYMBICORT 160-4.5 MCG/ACT AERO BUDESONIDE-FORMOT SÁNCHEZ FUMARATE Inactive PROMETHAZINE-CODEINE 6.25-10 MG/5ML SYRP 1 tsp by mouth ever y 8 hours prn cough PROMETHAZINE-CODEINE 6.25-10 MG/5ML SYRP 300951 PROMETHAZINE-CODEINE Inactive ZITHROMAX Z-REYNA 250 MG TABS 2 today, then 1 daily for 4 days 201 04/09/17 ZITHROMAX Z-REYNA 250 MG TABS 0131351 AZITHROMYCIN Inac tive CEFDINIR 300 MG CAPS by mouth twice a day CEFDINIR 300 MG CAPS 20020704 CEFDINIR Inactive CEFDINIR 300 MG CAPS by mouth twice a day CEFDINIR 300 MG CAPS 361828 CEFDINIR Inactive CEFDINIR 300 MG CAPS by mouth twice a day CEFDINIR 300 MG CAPS 589958 CEFDINIR Inactive CEFDINIR 300 MG CAPS by mouth twice a day CEFDINIR 300 MG CAPS 774673 CEFDINIR Inactive ZITHROMAX 250 MG TAB 2 po today, then 1 po q days 2-5 ZITHROMAX 250 MG TAB 8831741 AZITHROMYCIN Inactive CEFDINIR 300 MG CAPS by mouth twice a day CEFDINIR 300 MG CAPS 20020704 CEFDINIR Inactive PREDNISONE 20 MG TAB 2 tabs daily for 3 days, 1 t ab daily for 3 days, 1/2 tab daily for 2 days PREDNISONE 20 MG TAB 390290 PREDNISON E Inactive AVELOX 400 MG TABS 1 tab by mouth daily A VELOX 400 MG TABS 884887 MOXIFLOXACIN HCL Inactive AVELOX 400 MG TABS 1 tab by mouth daily A VELOX 400 MG TABS 474683 MOXIFLOXACIN HCL Inactive PREDNISONE 20 MG TAB Take 3 tabs daily for 3 days , 2 tabs daily for 3 days, 1 tab daily for 3 days, 1/2 tab daily for 3 days PREDNISONE 20 MG TAB 110101 PREDNISONE Inactive LEVAQUIN 500 MG TABS take one po QD LEVAQUIN 50 0 MG TABS 214264 LEVOFLOXACIN Inactive AZITHROMYCIN 250 MG TABS 2 po qd x 1 day, then 1 po qd x 4 days AZITHROMYCIN 250 MG TABS 1553311 AZITHROMYCIN Inactiv e MEDROL (REYNA) 4 MG TABS 6 tabs on day 1, 5 tabs on d ay 2, 4 tabs on day 3, 3 tabs on day 4, 2 tabs on day 5, 1 tab on day 6 MEDROL (REYNA) 4 MG TABS METHYLPREDNISOLONE Inactive CHERATUSSIN AC 100-10 MG/5ML SYRP 5ml po q6hr PRN Cough CHERATUSSIN AC 100-10 MG/5ML SYRP 742812 GUAIFENESIN-CODEINE Inacti ve TRIAMCINOLONE ACETONIDE 0.1 % CREA apply three times daily prn r beatrice TRIAMCINOLONE ACETONIDE 0.1 % CREA 2406274 TRIAMCINOLONE ACETONIDE Inactive AZITHROMYCIN 250 MG TABS 2 po qd x 1 day, then 1 po qd x 4 days AZITHROMYCIN 250 MG TABS 8186989 AZITHROMYCIN Inactiv e MEDROL (REYNA) 4 MG [...] ... - Chemistry sodium, serum 143 mmol/L 264-839 0852/01/24 potassium, serum 4.1 mmol/L 3.5-5.2 chloride, serum [...] 0.60 mg/dL 0.00-1.00 cholesterol, serum 227 mg/dL 990-819 4329/01/24 triglyceride, serum, fasting 97 mg/dL 30-200 HDL [...] mg/dL Encounters Code Encounter Date Provider Facility CPT-32763 Level 3 Est. Patient 10:03:07 CDT Perez Mora MD [facility] CPT-93053 Level 3 Est. Patient 19:50:35 TRADE ANALYST Carlton rich MD [facility] CPT-41037 Level 4 Est. Patient 18:05:01 TRADE ANALYST Carlton rich MD [facility] CPT-06434 Level 3 Est. Patient 10:45:55 TRADE ANALYST Hugo Restrepo MD [facility]-87279 Level 3 Est. Patient 14:12:49 CDT Griffin HERNANDEZ [facility]-03769 Level 3 Est. Patient 17:37:24 CDT Carlton rich MD [facility]-98530 Level 3 Est. Patient 16:51:54 CDT Carlton rich MD [facility]-24646 Level 3 Est. Patient 12:18:11 CDT Hugo Restrepo MD [facility]-44968 Level 3 Est. Patient 11:30:25 CDT Marcy crisostomo MD PhD [facility]-23106 Level 3 Est. Patient 12:00:47 TRADE ANALYST Carlton rich MD [facility]-24330 Level 3 Est. Patient 16:31:06 TRADE ANALYST Carlton rich MD [facility]-62508 Level 3 Est. Patient 16:23:24 TRADE ANALYST Ridge tam [facility]-76734 Level 3 Est. Patient 12:34:12 CDT Carlton rich MD [facility]-43827 Level 2 Est. Patient 15:43:33 CDT Robi armstrong MD [facility]-38622 Level 4 Est. Patient 14:04:44 CDT Carlton rich MD [facility]-61168 Level 3 Est. Patient 05:47:59 CDT Ridge tam [facility]-69996 Level 3 Est. Patient 13:12:53 TRADE ANALYST Carlton rich MD [facility]-04138 Level 3 Est. Patient 14:26:53 CDT Hugo Restrepo MD [facility] Procedures Code Procedure Name Date Entry Date Standard Desc ription CPT-68839 Fluzone Quadrivalent Intramuscular Suspe nsion 0.5 ML 14:31:55 CDT CPT-32681 Abx/Therapy Injection 13:28:47 TRADE ANALYST CPT-J2930 Solu Medrol 125 mg (Methyl Prednisolone Sodium Succinate) 12:00:47 TRADE ANALYST CPT-73007 Venipuncture Draw Fee 11:33:31 CDT CPT-37501 EKG Trac and Interp 11:21:09 CDT CPT-58882 Chest 2V Frontal and Lat 11:21:09 CDT 12/15 CPT-72222 Venipuncture Draw Fee 08:02:34 CDT CPT-25527 Chest 2V Frontal and Lat 05:47:59 CDT 06/05
--- OUTSIDE RECORDS SUMMARY | 2019-10-08 10:27 | XMS REPORT | Clinical Summary ---
Author Author Caitlin, Juliana Martinez Organization [facility] Address Unknown Phone Unavailable Allergies, Adverse Reactions, [...] daily x 10 days 20 13/03/08 AMOXICILLIN [id number] No Longer Active Carlton Hu MD Active CHERATUSSIN AC 100-10 MG/5ML SYRP 1 tsp by mouth every 4 hours as needed for cough GUAIFENESIN-CODEINE 98731987615 Active Carlton banks MD Active CYCLOBENZAPRINE HCL 10 MG TABS 1 tablet by mouth BID prn had pain 2 CYCLOBENZAPRINE HCL 72042651243 Active Carlton Hu MD A ctive PROMETHAZINE-CODEINE 6.25-10 MG/5ML SYRP 1 tsp by mouth ever y 8 hours prn cough PROMETHAZINE-CODEINE 67817003818 No Longer Active Robert Hu MD Active MEDROL (REYNA) 4 MG TABS 6 pills x 1 day, then 5 pill s x 1 day then 4 pills x 1 day, then 3 pills x 1 day, then 2 pills x 1 day, then 1 pill x 1 day, then stop METHYLPREDNISOLONE 72093887623 No Longer Active Parris Mora MD Active AZITHROMYCIN 250 MG TABS 2 po qd x 1 day, then 1 po qd x 4 days AZITHROMYCIN 73146093314 No Longer Active Perez Mora MD Active SYMBICORT 160-4.5 MCG/ACT AERO 2 puffs bid with rinse after 2011 BUDESONIDE-FORMOTEROL FUMARATE 50003409049 No Longer Active Perez Mora MD Active LYRICA 75 MG CAPS TAKE 1 CAPSULE BY MOUTH TWICE DAILY 2013 PREGABALIN 94494331484 No Longer Active Carlton Hu MD Active LYRICA 100 MG CAPS Take 1 tab po BID for fibromyalgia PREGABALIN 93803387655 Active Carlton Hu MD Active TOPAMAX 25 MG TABS 1 qHS x 1 week, then 1 BID x 1 week, then 1 qAM and 2 qHS x 1 week, then 2 BID (migraine prevention) TOPIRAMAT E 84433111529 No Longer Active Jerica Goeringer RMA Active TOPAMAX 50 MG TABS take 1 tab po BID for migraines. 12/07/10 TOPIRAMATE 35514260704 No Longer Active Jerica Goeringer RMA Ac tive TOPAMAX 100 MG TABS Take 1 tablet po bid TOPIRAMATE 4999 7839158 Active Carlton Hu MD Active TRIAMCINOLONE ACETONIDE 0.1 % CREA apply three times daily prn r beatrice TRIAMCINOLONE ACETONIDE 80224108270 No Longer Active Carlton Hu MD Active PAXIL 40 MG TAB take 1 tab po qday for depression PAROXETINE HCL 63117475021 Active Carlton Hu MD Active CYMBALTA 30 MG CPEP 1 cap by mouth daily DULOXE SNEHA HCL 64494803822 Active Carlton Hu MD Active CHERATUSSIN AC 100-10 MG/5ML SYRP 5ml po q6hr PRN Cough GUAIFENESIN-CODEINE 80331993177 No Longer Active Carlton Hu MD Active MEDROL (REYNA) 4 MG TABS 6 tabs on day 1, 5 tabs on d ay 2, 4 tabs on day 3, 3 tabs on day 4, 2 tabs on day 5, 1 tab on day 6 METHYLPREDNISOLONE 02480984699 No Longer Active Perez Mora MD Active AZITHROMYCIN 250 MG TABS 2 po qd x 1 day, then 1 po qd x 4 days AZITHROMYCIN 19253234814 No Longer Active Perez Mora MD Active PROPRANOLOL HCL 60 MG TABS 1 PO Q D PROPRANOL OL HCL 41748829593 No Longer Active Perez Mora MD Active CHERATUSSIN AC 100-10 MG/5ML SYRP take one tsp po Q 6hours prn c ough GUAIFENESIN-CODEINE 17747291423 No Longer Active Perez Means Active AUGMENTIN 875-125 MG TAB 1 tab by mouth twice daily with food 12/03/31 AMOXICILLIN-POT CLAVULANATE 53606773957 No Longer Active Chanel Mora MD Active CHERATUSSIN AC 100-10 MG/5ML SYRP 1 tsp by mouth every 4 hours as needed for cough GUAIFENESIN-CODEINE 41277157325 No Longer Activ e Hugo Restrepo MD Active ACETAMINOPHEN-CODEINE #3 300-30 MG TABS 1 PO Q 4-6 HRS PRN PAIN ACETAMINOPHEN-CODEINE 83671045913 No Longer Active Hugo Restrepo MD Active LEVAQUIN 500 MG TABS take one po QD LEVOFLOXACI N 47393569438 No Longer Active Griffin HERNANDEZ Active PREDNISONE 20 MG TAB Take 3 tabs daily for 3 days , 2 tabs daily for 3 days, 1 tab daily for 3 days, 1/2 tab daily for 3 days P REDNISONE 55183695509 No Longer Active Carlton Hu MD Active AVELOX 400 MG TABS 1 tab by mouth daily MOXIFLO XACIN HCL 44803669734 No Longer Active Carlton Hu MD Active CHERATUSSIN AC 100-10 MG/5ML SYRP 1 tsp by mouth every 4 hours as needed for cough GUAIFENESIN-CODEINE 67662374578 No Longer Activ e Hugo Restrepo MD Active AVELOX 400 MG TABS 1 tab by mouth daily MOXIFLO XACIN HCL 88025271078 No Longer Active Marcy De La Rosa MD PhD Active TERBINAFINE HCL 250 MG TABS 1 qDay TERBINAF INE HCL 12899706931 No Longer Active Marcy De La Rosa MD PhD Active CHERATUSSIN AC 100-10 MG/5ML SYRP 1 tsp by mouth every 4 hours as needed for cough GUAIFENESIN-CODEINE 05176775048 No Longer Activ e Marcy De La Rosa MD PhD Active AVELOX 400 MG TABS 1 tab by mouth daily MOXIFLO XACIN HCL 56080904882 No Longer Active Marcy De La Rosa MD PhD Active HYDROCODONE-ACETAMINOPHEN 5-325 MG TABS 1 po q 6hr PRN cough 201 05/09/16 HYDROCODONE-ACETAMINOPHEN 06958482449 No Longer Active Marcy De La Rosa MD PhD Active PREDNISONE 20 MG TAB 2 tabs daily for 3 days, 1 t ab daily for 3 days, 1/2 tab daily for 2 days PREDNISONE 84135101399 No Longer Active Carlton Hu MD Active CEFDINIR 300 MG CAPS by mouth twice a day CEFDI ODILIA 36978465465 No Longer Active Carlton Hu MD Active ZOCOR 40 MG TAB 1 tab by mouth daily SIMVASTATIN 64521440094 Active Carlton Hu MD Active HYDROCHLOROTHIAZIDE 25 MG TABS 1 TAB PO DAILY H YDROCHLOROTHIAZIDE 44134277011 Active Carlton Hu MD Active ACETAMINOPHEN-CODEINE #3 300-30 MG TABS 1 tablet po q 4-6hrs prn pain ACETAMINOPHEN-CODEINE 44124812065 No Longer Active Ridge Bess DO Active ZITHROMAX 250 MG TAB 2 po today, then 1 po q days 2-5 AZITHROMYCIN 17712796591 No Longer Active Carlton Hu MD Acti ve CHERATUSSIN AC 100-10 MG/5ML SYRP take 1 tsp po q4-6 hours prn c ough GUAIFENESIN-CODEINE 08533593687 No Longer Active Carlton Hu MD Active ACETAMINOPHEN-CODEINE #3 300-30 MG TABS 1 PO Q 4-6 HR PRN PAIN 2 ACETAMINOPHEN-CODEINE 15827432053 No Longer Active Carlton rich MD Active LORTAB 7.5-500 MG/15ML ELIX 7.5 ml po q 4 hour prn cough HYDROCODONE-ACETAMINOPHEN 40192278186 No Longer Active Carlton Hu MD Active PREDNISONE 20 MG TAB 1 po bid 3 days, then 1 po q day 3 days 201 05/03/07 PREDNISONE 80351520653 No Longer Active Carlton Hu MD Active ELMIRON 100 MG CAPS 2 tablets in the am and 1 tablet at hs PENTOSAN POLYSULFATE SODIUM 86188380976 Active Gracie Moreno Active CEFDINIR 300 MG CAPS by mouth twice a day CEFDI ODILIA 43379237452 No Longer Active Carlton Hu MD Active CEFDINIR 300 MG CAPS by mouth twice a day CEFDI ODILIA 31153214865 No Longer Active Carlton Hu MD Active CEFDINIR 300 MG CAPS by mouth twice a day CEFDI ODILIA 55076811840 No Longer Active Carlton Hu MD Active TESSALON PERLES 100 MG CAP 1 tablet by mouth 3 times daily a s needed for cough BENZONATATE 87922126635 No Longer Active Carlton bustamante MD Active CEFDINIR 300 MG CAPS by mouth twice a day CEFDI ODILIA 96496930330 No Longer Active Carlton Hu MD Active ZITHROMAX Z-REYNA 250 MG TABS 2 today, then 1 daily for 4 days 201 04/09/17 AZITHROMYCIN 21312344300 No Longer Active Hugo Restrepo MD Active PREMARIN 0.625 MG TABS TAKE 1 TAB BY MOUTH DAILY ESTROGENS CONJUGATED 96940942542 Active Carlton uH MD Active TESSALON PERLES 100 MG CAP 1 tablet by mouth 3 times daily a s needed for cough TESSALON PERLES 100 MG CAP 682574 BENZONATATE I nactive PREDNISONE 20 MG TAB 1 po bid 3 days, then 1 po q day 3 days 201 05/03/07 PREDNISONE 20 MG TAB 914437 PREDNISONE Inactive LORTAB 7.5-500 MG/15ML ELIX 7.5 ml po q 4 hour prn cough LORTAB 7.5-500 MG/15ML ELIX HYDROCODONE-ACETAMINOPHEN Inacti ve ACETAMINOPHEN-CODEINE #3 300-30 MG TABS 1 PO Q 4-6 HR PRN PAIN 2 ACETAMINOPHEN-CODEINE #3 300-30 MG TABS 554293 ACETAMIN OPHEN-CODEINE Inactive CHERATUSSIN AC 100-10 MG/5ML SYRP take 1 tsp po q4-6 hours prn c ough CHERATUSSIN AC 100-10 MG/5ML SYRP 315259 GUAIFENESIN-CO DEINE Inactive ACETAMINOPHEN-CODEINE #3 300-30 MG TABS 1 tablet po q 4-6hrs prn pain ACETAMINOPHEN-CODEINE #3 300-30 MG TABS 168204 ACETAMIN OPHEN-CODEINE Inactive HYDROCODONE-ACETAMINOPHEN 5-325 MG TABS 1 po q 6hr PRN cough 201 05/09/16 HYDROCODONE-ACETAMINOPHEN 5-325 MG TABS 794987 HYDROCODONE-ACETAMINOPHEN Inactive AVELOX 400 MG TABS 1 tab by mouth daily A VELOX 400 MG TABS 106754 MOXIFLOXACIN HCL Inactive CHERATUSSIN AC 100-10 MG/5ML SYRP 1 tsp by mouth every 4 hours as needed for cough CHERATUSSIN AC 100-10 MG/5ML SYRP 595932 GUAIFENESIN-CODEINE Inactive TERBINAFINE HCL 250 MG TABS 1 qDay TERBINAFINE HCL 250 MG TABS 432872 TERBINAFINE HCL Inactive CHERATUSSIN AC 100-10 MG/5ML SYRP 1 tsp by mouth every 4 hours as needed for cough CHERATUSSIN AC 100-10 MG/5ML SYRP 184784 GUAIFENESIN-CODEINE Inactive ACETAMINOPHEN-CODEINE #3 300-30 MG TABS 1 PO Q 4-6 HRS PRN PAIN ACETAMINOPHEN-CODEINE #3 300-30 MG TABS 435643 ACETAMINOPHEN-CODEIN E Inactive CHERATUSSIN AC 100-10 MG/5ML SYRP 1 tsp by mouth every 4 hours as needed for cough CHERATUSSIN AC 100-10 MG/5ML SYRP 881688 GUAIFENESIN-CODEINE Inactive AUGMENTIN 875-125 MG TAB 1 tab by mouth twice daily with food 20 12/03/31 AUGMENTIN 875-125 MG TAB 556599 AMOXICILLIN-POT CLAVULA EFE Inactive CHERATUSSIN AC 100-10 MG/5ML SYRP take one tsp po Q 6hours prn c ough CHERATUSSIN AC 100-10 MG/5ML SYRP 526351 GUAIFENESIN-CO DEINE Inactive PROPRANOLOL HCL 60 MG TABS 1 PO Q D P ROPRANOLOL HCL 60 MG TABS 550801 PROPRANOLOL HCL Inactive TOPAMAX 50 MG TABS take 1 tab po BID for migraines. 20 12/07/10 TOPAMAX 50 MG TABS 958567 TOPIRAMATE Inactive TOPAMAX 25 MG TABS 1 qHS x 1 week, then 1 BID x 1 week, then 1 qAM and 2 qHS x 1 week, then 2 BID (migraine prevention) TOPAMAX 2 5 MG TABS 152703 TOPIRAMATE Inactive LYRICA 75 MG CAPS TAKE 1 CAPSULE BY MOUTH TWICE DAILY LYRICA 75 MG CAPS PREGABALIN Inactive SYMBICORT 160-4.5 MCG/ACT AERO 2 puffs bid with rinse after 2011 SYMBICORT 160-4.5 MCG/ACT AERO BUDESONIDE-FORMOT SÁNCHEZ FUMARATE Inactive PROMETHAZINE-CODEINE 6.25-10 MG/5ML SYRP 1 tsp by mouth ever y 8 hours prn cough PROMETHAZINE-CODEINE 6.25-10 MG/5ML SYRP 116470 PROMETHAZINE-CODEINE Inactive ZITHROMAX Z-REYNA 250 MG TABS 2 today, then 1 daily for 4 days 201 04/09/17 ZITHROMAX Z-REYNA 250 MG TABS 4230870 AZITHROMYCIN Inac tive CEFDINIR 300 MG CAPS by mouth twice a day CEFDINIR 300 MG CAPS 049537 CEFDINIR Inactive CEFDINIR 300 MG CAPS by mouth twice a day CEFDINIR 300 MG CAPS 20020704 CEFDINIR Inactive CEFDINIR 300 MG CAPS by mouth twice a day CEFDINIR 300 MG CAPS 20020704 CEFDINIR Inactive CEFDINIR 300 MG CAPS by mouth twice a day CEFDINIR 300 MG CAPS 230279 CEFDINIR Inactive ZITHROMAX 250 MG TAB 2 po today, then 1 po q days 2-5 ZITHROMAX 250 MG TAB 4530888 AZITHROMYCIN Inactive CEFDINIR 300 MG CAPS by mouth twice a day CEFDINIR 300 MG CAPS 20020704 CEFDINIR Inactive PREDNISONE 20 MG TAB 2 tabs daily for 3 days, 1 t ab daily for 3 days, 1/2 tab daily for 2 days PREDNISONE 20 MG TAB 635551 PREDNISON E Inactive AVELOX 400 MG TABS 1 tab by mouth daily A VELOX 400 MG TABS 286033 MOXIFLOXACIN HCL Inactive AVELOX 400 MG TABS 1 tab by mouth daily A VELOX 400 MG TABS 949877 MOXIFLOXACIN HCL Inactive PREDNISONE 20 MG TAB Take 3 tabs daily for 3 days , 2 tabs daily for 3 days, 1 tab daily for 3 days, 1/2 tab daily for 3 days PREDNISONE 20 MG TAB 599408 PREDNISONE Inactive LEVAQUIN 500 MG TABS take one po QD LEVAQUIN 50 0 MG TABS 871987 LEVOFLOXACIN Inactive AZITHROMYCIN 250 MG TABS 2 po qd x 1 day, then 1 po qd x 4 days AZITHROMYCIN 250 MG TABS 9169741 AZITHROMYCIN Inactiv e MEDROL (REYNA) 4 MG TABS 6 tabs on day 1, 5 tabs on d ay 2, 4 tabs on day 3, 3 tabs on day 4, 2 tabs on day 5, 1 tab on day 6 MEDROL (REYNA) 4 MG TABS METHYLPREDNISOLONE Inactive CHERATUSSIN AC 100-10 MG/5ML SYRP 5ml po q6hr PRN Cough CHERATUSSIN AC 100-10 MG/5ML SYRP 006822 GUAIFENESIN-CODEINE Inacti ve TRIAMCINOLONE ACETONIDE 0.1 % CREA apply three times daily prn r beatrice TRIAMCINOLONE ACETONIDE 0.1 % CREA 6799321 TRIAMCINOLONE ACETONIDE Inactive AZITHROMYCIN 250 MG TABS 2 po qd x 1 day, then 1 po qd x 4 days AZITHROMYCIN 250 MG TABS 8407674 AZITHROMYCIN Inactiv e MEDROL (REYNA) 4 MG [...] days 20 13/03/08 AMOXICILLIN 500 MG CAP 081342 AMOXICILLIN Inactive Vital Signs Date Name Value [...] ... - Chemistry sodium, serum 143 mmol/L 793-142 8378/01/24 potassium, serum 4.1 mmol/L 3.5-5.2 chloride, serum [...] 0.60 mg/dL 0.00-1.00 cholesterol, serum 227 mg/dL 135-400 9685/01/24 triglyceride, serum, fasting 97 mg/dL 30-200 HDL [...] mg/dL Encounters Code Encounter Date Provider Facility CPT-46742 Level 3 Est. Patient 10:03:07 CDT Perez Mora MD [facility] CPT-62269 Level 3 Est. Patient 19:50:35 MACHINE TAPER Carlton rich MD [facility] CPT-94295 Level 4 Est. Patient 18:05:01 MACHINE TAPER Carlton rich MD [facility] CPT-11005 Level 3 Est. Patient 10:45:55 MACHINE TAPER Hugo Restrepo MD [facility] CPT-80882 Level 3 Est. Patient 14:12:49 CDT Griffin HERNANDEZ [facility]-27071 Level 3 Est. Patient 17:37:24 CDT Carlton rich MD [facility]-65828 Level 3 Est. Patient 16:51:54 CDT Carlton rich MD [facility]-58404 Level 3 Est. Patient 12:18:11 CDT Hugo Restrepo MD [facility]-17239 Level 3 Est. Patient 11:30:25 CDT Marcy crisostomo MD PhD [facility]-05526 Level 3 Est. Patient 12:00:47 MACHINE TAPER Carlton rich MD [facility]-52211 Level 3 Est. Patient 16:31:06 MACHINE TAPER Carlton rich MD [facility] CPT-98195 Level 3 Est. Patient 16:23:24 MACHINE TAPER Ridge tam [facility] CPT-47989 Level 3 Est. Patient 12:34:12 CDT Carlton rich MD [facility] CPT-83262 Level 2 Est. Patient 15:43:33 CDT Robi armstrong MD [facility]-03524 Level 4 Est. Patient 14:04:44 CDT Carlton rich MD [facility]-79386 Level 3 Est. Patient 05:47:59 CDT Ridge tam [facility] CPT-28733 Level 3 Est. Patient 13:12:53 MACHINE TAPER Carlton rich MD [facility]-95291 Level 3 Est. Patient 14:26:53 CDT Hugo Restrepo MD [facility] Procedures Code Procedure Name Date Entry Date Standard Desc ription CPT-30177 Fluzone Quadrivalent Intramuscular Suspe nsion 0.5 ML 14:31:55 CDT CPT-16503 Abx/Therapy Injection 13:28:47 MACHINE TAPER CPT-J2930 Solu Medrol 125 mg (Methyl Prednisolone Sodium Succinate) 12:00:47 MACHINE TAPER CPT-11142 Venipuncture Draw Fee 11:33:31 CDT CPT-77216 EKG Trac and Interp 11:21:09 CDT CPT-17356 Chest 2V Frontal and Lat 11:21:09 CDT 12/15 CPT-06127 Venipuncture Draw Fee 08:02:34 CDT CPT-67490 Chest 2V Frontal and Lat 05:47:59 CDT 06/05
--- OUTSIDE RECORDS SUMMARY | 2019-10-08 10:28 | XMS REPORT | Continuity of Care Document ---
Author Organization Unknown Address Unknown Phone Unavailable Allergies Active Description Code Type Severity Reaction Onset Reported/Identified Relationship to Patient Clinical Status Yes amoxicillin [id number] Drug Aller gy Unknown Diarrhea 10/05/2019 Medications There is no data. Problems Date Dx Coded Attending Type Code Diagnosis Diagnosed By 02/05/2017 Aneesh Hu MD B37. 2 Onychomycosis 03/11/2017 Aneesh Hu MD J01. 90 Sinusitis - acute 04/21/2017 Aneesh Hu MD I20. 9 Angina pectoris 12/04/2017 Aneesh Hu MD J06. 9 URI 12/04/2017 Aneesh Hu MD Z68. 35 Body Mass Index 35.0-35.9 Adult 04/06/2018 Aneesh Hu MD E66. 9 Obesity Class I (BMI 30-34.9) 04/06/2018 Aneesh Hu MD Z68. 34 BMI 34-34.9 04/20/2018 Aneesh Hu MD E66. 01 Morbid obesity due to excess calories 04/20/2018 Aneesh Hu MD Z68. 35 BMI 35-35.9 05/29/2018 Aneesh Hu MD E66. 9 Obesity Class II (BMI 35-39.9) 07/28/2018 Aneesh Hu MD N30. 10 Interstitial Cystitis 07/28/2018 Aneesh Hu MD E66. 9 Obesity Class I (BMI 30-34.9) 07/28/2018 Aneesh Hu MD Z68. 34 BMI 34-34.9 10/21/2018 Aneesh Hu MD J02. 9 Pharyngitis, acute / sore throat 10/21/2018 Aneesh Hu MD R21 Rash and other nonspecific skin eruption 10/21/2018 Aneesh Hu MD E66. 9 Obesity Class II (BMI 35-39.9) 10/21/2018 Aneesh Hu MD68. 35 BMI 35-35.9 11/19/2018 Aneesh Hu MD B02. 9 Shingles 12/10/2018 Aneesh Hu MD E66. 9 Obesity Class I (BMI 30-34.9) 12/10/2018 Aneesh Hu MD Z68. 33 BMI 33-33.9 01/06/2019 Aneesh Hu MD K21. 9 GERD 01/06/2019 Aneesh Hu MD K58. 9 IBS (irritable bowel syndrome) 05/20/2019 Aneesh Hu MD R05 Cough, non-productive 08/12/2019 Aneesh Hu MD Z68. 34 BMI 34-34.9 09/21/2019 NAHUM HARVEY Reason For Visit J32.8 Other chronic sinusitis Procedures There is no data. Results Test Result Range Coronavirus SARS-CoV-2 SO 2018 - 0 08:30 Coronavirus Ab [Units/volume] in Serum Negative Negative Complete blood count (CBC) with automate d white blood cell (WBC) differential - 10/05/19 09:35 Blood leukocytes automated count (number/volume) 5.1 10*3/uL 4.3-11.0 Blood erythrocytes automated count (number/volume) 4.72 10*6/uL 4.35-5.85 Venous blood hemoglobin measurement (mass/volume) 13.7 g/dL 11.5-16.0 Blood hematocrit (volume fraction) 40 % 35-52 Automated erythrocyte mean corpuscular volume 85 [ foz_us] 80-99 Automated erythrocyte mean corpuscular h emoglobin (mass per erythrocyte) 29 pg 25-34 Automated erythrocyte mean corpuscular h emoglobin concentration measurement (mass/volume) 34 g/dL 32-36 Automated erythrocyte distribution width ratio 13. 4 % 10.0- 14.5 Automated blood platelet count (count/volume) 395 10*3/uL 130-400 Automated blood platelet mean volume measurement 8.8 [foz_us] 7.4-10.4 Automated blood neutrophils/100 leukocytes 74 % 42-75 Automated blood lymphocytes/100 leukocytes 21 % 12-44 Blood monocytes/100 leukocytes 4 % 0-12 Automated blood eosinophils/100 leukocytes 0 % 0-10 Automated blood basophils/100 leukocytes 0 % 0-10 Blood neutrophils automated count (number/volume) 3.7 10*3 1.8-7.8 Blood lymphocytes automated count (number/volume) 1.1 10*3 1.0-4.0 Blood monocytes automated count (number/volume) 0. 2 10*3 0.0-1.0 Automated eosinophil count 0.0 10*3/uL 0 .0-0.3 Automated blood basophil count (count/volume) 0.0 10*3/uL 0.0-0.1 Whole blood basic metabolic panel - 10/17 09:35 Serum or plasma sodium measurement (moles/volume) 136 mmol/L 135-145 Serum or plasma potassium measurement (moles/volume) 2.6 mmol/L 3.6-5.0 Serum or plasma chloride measurement (moles/volume) 99 mmol/L 98-107 Carbon dioxide 25 mmol/L 21-32 Serum or plasma anion gap determination (moles/volume) 12 mmol/L 5-14 Serum or plasma urea nitrogen measurement (mass/volume ) 12 mg/dL 7-18 Serum or plasma creatinine measurement (mass/volume) 0.93 mg/dL 0.60-1.30 Serum or plasma urea nitrogen/creatinine mass ratio 13 NRG Serum or plasma creatinine measurement w ith calculation of estimated glomerular filtration rate > NRG Serum or plasma glucose measurement (mass/volume) 185 mg/dL 70-105 Serum or plasma calcium measurement (mass/volume) 9.1 mg/dL 8.5-10.1 Methicillin resistant Staphylococcus aur eus (MRSA) screening culture - 10/05/19 09:35 Methicillin resistant Staphylococcus aureus (MRSA) scr eening culture NEG NRG Serum or plasma potassium measurement (m oles/volume) - 10/08/19 07:10 Serum or plasma potassium measurement (moles/volume) 2.9 mmol/L 3.6-5.0 Encounters ACCT No. Visit Date/Time Discharge Status Pt. Type Provider Facility Loc./Unit Complaint [id number] 01/13/2019 07:37:35 ACT Document Registration [id number] 10/05/2019 05:42:00 020 11:10:00 DIS Outpatient WES AUGUSTIN, NAHUM Kohli [facility] PREOP AMNA. ESS, POSSIBLE SEPT OPLASTY, RED. AMNA. INF. TUR [id number] 10/08/2019 08:15:00 P EN Preadmit NAHUM HARVEY MD [facility] CHRONIC SINUSITIS [id number] 09/03/2019 20:01:38 ACT Unknown Aneesh Hu MD [id number] 09/21/2019 12:50:34 0 23:59:59 DIS Outpatient NAHUM HARVEY [facility] chronic recurrent si nus disease [id number] 07/23/2018 13:30:52 9 23:59:59 DIS Outpatient ANEESH HU [facility] screening [id number] 04/21/2017 09:47:33 8 23:59:59 CLS Preadmit ANEESH HU [facility] chest pain
--- OUTSIDE RECORDS SUMMARY | 2019-10-08 10:28 | XMS REPORT | Clinical Summary ---
Author Author Caitlin, Juliana Martinez Organization [facility] Address Unknown Phone Unavailable Allergies, Adverse [...] daily x 10 days 20 14/04/28 AMOXICILLIN [id number] No Longer Active Carlton Hu MD Active AMOXICILLIN 500 MG CAP 1 tab by mouth 3 times daily x 10 days 20 13/03/08 AMOXICILLIN 53630406818 No Longer Active Carlton Hu MD Active CHERATUSSIN AC 100-10 MG/5ML SYRP 1 tsp by mouth every 4 hours as needed for cough GUAIFENESIN-CODEINE 30563324539 Active Carlton banks MD Active CYCLOBENZAPRINE HCL 10 MG TABS 1 tablet by mouth BID prn had pain 2 CYCLOBENZAPRINE HCL 45798999542 Active Carlton Hu MD A ctive PROMETHAZINE-CODEINE 6.25-10 MG/5ML SYRP 1 tsp by mouth ever y 8 hours prn cough PROMETHAZINE-CODEINE 33024923387 No Longer Active Robert Hu MD Active MEDROL (REYNA) 4 MG TABS 6 pills x 1 day, then 5 pill s x 1 day then 4 pills x 1 day, then 3 pills x 1 day, then 2 pills x 1 day, then 1 pill x 1 day, then stop METHYLPREDNISOLONE 09414681654 No Longer Active Parris Mora MD Active AZITHROMYCIN 250 MG TABS 2 po qd x 1 day, then 1 po qd x 4 days AZITHROMYCIN 62000810685 No Longer Active Perez Mora MD Active SYMBICORT 160-4.5 MCG/ACT AERO 2 puffs bid with rinse after 2011 BUDESONIDE-FORMOTEROL FUMARATE 44873556691 No Longer Active Perez Mora MD Active LYRICA 75 MG CAPS TAKE 1 CAPSULE BY MOUTH TWICE DAILY 2013 PREGABALIN 00355849431 No Longer Active Carlton Hu MD Active LYRICA 100 MG CAPS Take 1 tab po BID for fibromyalgia PREGABALIN 45547410326 Active Carlton Hu MD Active TOPAMAX 25 MG TABS 1 qHS x 1 week, then 1 BID x 1 week, then 1 qAM and 2 qHS x 1 week, then 2 BID (migraine prevention) TOPIRAMAT E 16390949770 No Longer Active Jerica FUENTES Active TOPAMAX 50 MG TABS take 1 tab po BID for migraines. 12/07/10 TOPIRAMATE 89209844092 No Longer Active Jerica FUENTES Ac tive TOPAMAX 100 MG TABS Take 1 tablet po bid TOPIRAMATE 4999 7485179 Active Carlton Hu MD Active TRIAMCINOLONE ACETONIDE 0.1 % CREA apply three times daily prn r beatrice TRIAMCINOLONE ACETONIDE 04065339667 No Longer Active Carlton Hu MD Active PAXIL 40 MG TAB take 1 tab po qday for depression PAROXETINE HCL 75704553105 Active Carlton Hu MD Active CYMBALTA 30 MG CPEP 1 cap by mouth daily DULOXE SNEHA HCL 99724279659 Active Carlton Hu MD Active CHERATUSSIN AC 100-10 MG/5ML SYRP 5ml po q6hr PRN Cough GUAIFENESIN-CODEINE 22592178277 No Longer Active Carlton Hu MD Active MEDROL (REYNA) 4 MG TABS 6 tabs on day 1, 5 tabs on d ay 2, 4 tabs on day 3, 3 tabs on day 4, 2 tabs on day 5, 1 tab on day 6 METHYLPREDNISOLONE 19746706922 No Longer Active Perez Mora MD Active AZITHROMYCIN 250 MG TABS 2 po qd x 1 day, then 1 po qd x 4 days AZITHROMYCIN 34505125956 No Longer Active Perez Mora MD Active PROPRANOLOL HCL 60 MG TABS 1 PO Q D PROPRANOL OL HCL 54240625403 No Longer Active Perez Mora MD Active CHERATUSSIN AC 100-10 MG/5ML SYRP take one tsp po Q 6hours prn c ough GUAIFENESIN-CODEINE 92033462440 No Longer Active Perez Means Active AUGMENTIN 875-125 MG TAB 1 tab by mouth twice daily with food 20 12/03/31 AMOXICILLIN-POT CLAVULANATE 67974492535 No Longer Active Chanel Mora MD Active CHERATUSSIN AC 100-10 MG/5ML SYRP 1 tsp by mouth every 4 hours as needed for cough GUAIFENESIN-CODEINE 98779036721 No Longer Activ lidia Restrepo MD Active ACETAMINOPHEN-CODEINE #3 300-30 MG TABS 1 PO Q 4-6 HRS PRN PAIN ACETAMINOPHEN-CODEINE 95910870934 No Longer Active Hugo Restrepo MD Active LEVAQUIN 500 MG TABS take one po QD LEVOFLOXACI N 83229363191 No Longer Active Griffin HERNANDEZ Active PREDNISONE 20 MG TAB Take 3 tabs daily for 3 days , 2 tabs daily for 3 days, 1 tab daily for 3 days, 1/2 tab daily for 3 days P REDNISONE 20454321924 No Longer Active Carlton Hu MD Active AVELOX 400 MG TABS 1 tab by mouth daily MOXIFLO XACIN HCL 13759480902 No Longer Active Carlton Hu MD Active CHERATUSSIN AC 100-10 MG/5ML SYRP 1 tsp by mouth every 4 hours as needed for cough GUAIFENESIN-CODEINE 88503985103 No Longer Activ e Hugo Restrepo MD Active AVELOX 400 MG TABS 1 tab by mouth daily MOXIFLO XACIN HCL 10531224057 No Longer Active Marcy De La Rosa MD PhD Active TERBINAFINE HCL 250 MG TABS 1 qDay TERBINAF INE HCL 91089895857 No Longer Active Marcy De La Rosa MD PhD Active CHERATUSSIN AC 100-10 MG/5ML SYRP 1 tsp by mouth every 4 hours as needed for cough GUAIFENESIN-CODEINE 09386820275 No Longer Activ e Marcy De La Rosa MD PhD Active AVELOX 400 MG TABS 1 tab by mouth daily MOXIFLO XACIN HCL 97652106110 No Longer Active Marcy De La Rosa MD PhD Active HYDROCODONE-ACETAMINOPHEN 5-325 MG TABS 1 po q 6hr PRN cough 201 05/09/16 HYDROCODONE-ACETAMINOPHEN 78389483059 No Longer Active Marcy De La Rosa MD PhD Active PREDNISONE 20 MG TAB 2 tabs daily for 3 days, 1 t ab daily for 3 days, 1/2 tab daily for 2 days PREDNISONE 70725106925 No Longer Active Carlton Hu MD Active CEFDINIR 300 MG CAPS by mouth twice a day CEFDI ODILIA 91526634541 No Longer Active Carlton Hu MD Active ZOCOR 40 MG TAB 1 tab by mouth daily SIMVASTATIN 70402874151 Active Carlton Hu MD Active HYDROCHLOROTHIAZIDE 25 MG TABS 1 TAB PO DAILY H YDROCHLOROTHIAZIDE 50863379559 Active Carlton Hu MD Active ACETAMINOPHEN-CODEINE #3 300-30 MG TABS 1 tablet po q 4-6hrs prn pain ACETAMINOPHEN-CODEINE 37256245107 No Longer Active Ridge Bess DO Active ZITHROMAX 250 MG TAB 2 po today, then 1 po q days 2-5 AZITHROMYCIN 57004506307 No Longer Active Carlton Hu MD Acti ve CHERATUSSIN AC 100-10 MG/5ML SYRP take 1 tsp po q4-6 hours prn c ough GUAIFENESIN-CODEINE 61973414186 No Longer Active Carlton Hu MD Active ACETAMINOPHEN-CODEINE #3 300-30 MG TABS 1 PO Q 4-6 HR PRN PAIN 2 ACETAMINOPHEN-CODEINE 54994889638 No Longer Active Carlton rich MD Active LORTAB 7.5-500 MG/15ML ELIX 7.5 ml po q 4 hour prn cough HYDROCODONE-ACETAMINOPHEN 89479819847 No Longer Active Carlton Hu MD Active PREDNISONE 20 MG TAB 1 po bid 3 days, then 1 po q day 3 days 201 05/03/07 PREDNISONE 94817678086 No Longer Active Carlton Hu MD Active ELMIRON 100 MG CAPS 2 tablets in the am and 1 tablet at hs PENTOSAN POLYSULFATE SODIUM 65081383488 Active Gracie York Active CEFDINIR 300 MG CAPS by mouth twice a day CEFDI ODILIA 77650108362 No Longer Active Carlton Hu MD Active CEFDINIR 300 MG CAPS by mouth twice a day CEFDI ODILIA 48517301426 No Longer Active Carlton Hu MD Active CEFDINIR 300 MG CAPS by mouth twice a day CEFDI ODILIA 83378441743 No Longer Active Carlton Hu MD Active TESSALON PERLES 100 MG CAP 1 tablet by mouth 3 times daily a s needed for cough BENZONATATE 76763554868 No Longer Active Carlton bustamante MD Active CEFDINIR 300 MG CAPS by mouth twice a day CEFDI ODILIA 51069399311 No Longer Active Carlton Hu MD Active ZITHROMAX Z-REYNA 250 MG TABS 2 today, then 1 daily for 4 days 201 04/09/17 AZITHROMYCIN 61576200927 No Longer Active Hugo Restrepo MD Active PREMARIN 0.625 MG TABS TAKE 1 TAB BY MOUTH DAILY ESTROGENS CONJUGATED 42502812093 Active Carlton Hu MD Active TESSALON PERLES 100 MG CAP 1 tablet by mouth 3 times daily a s needed for cough TESSALON PERLES 100 MG CAP 683004 BENZONATATE I nactive PREDNISONE 20 MG TAB 1 po bid 3 days, then 1 po q day 3 days 201 05/03/07 PREDNISONE 20 MG TAB 424613 PREDNISONE Inactive LORTAB 7.5-500 MG/15ML ELIX 7.5 ml po q 4 hour prn cough LORTAB 7.5-500 MG/15ML ELIX HYDROCODONE-ACETAMINOPHEN Inacti ve ACETAMINOPHEN-CODEINE #3 300-30 MG TABS 1 PO Q 4-6 HR PRN PAIN 2 ACETAMINOPHEN-CODEINE #3 300-30 MG TABS 693922 ACETAMIN OPHEN-CODEINE Inactive CHERATUSSIN AC 100-10 MG/5ML SYRP take 1 tsp po q4-6 hours prn c ough CHERATUSSIN AC 100-10 MG/5ML SYRP 829775 GUAIFENESIN-CO DEINE Inactive ACETAMINOPHEN-CODEINE #3 300-30 MG TABS 1 tablet po q 4-6hrs prn pain ACETAMINOPHEN-CODEINE #3 300-30 MG TABS 299278 ACETAMIN OPHEN-CODEINE Inactive HYDROCODONE-ACETAMINOPHEN 5-325 MG TABS 1 po q 6hr PRN cough 201 05/09/16 HYDROCODONE-ACETAMINOPHEN 5-325 MG TABS 333900 HYDROCODONE-ACETAMINOPHEN Inactive AVELOX 400 MG TABS 1 tab by mouth daily A VELOX 400 MG TABS 027952 MOXIFLOXACIN HCL Inactive CHERATUSSIN AC 100-10 MG/5ML SYRP 1 tsp by mouth every 4 hours as needed for cough CHERATUSSIN AC 100-10 MG/5ML SYRP 779473 GUAIFENESIN-CODEINE Inactive TERBINAFINE HCL 250 MG TABS 1 qDay TERBINAFINE HCL 250 MG TABS 996098 TERBINAFINE HCL Inactive CHERATUSSIN AC 100-10 MG/5ML SYRP 1 tsp by mouth every 4 hours as needed for cough CHERATUSSIN AC 100-10 MG/5ML SYRP 859371 GUAIFENESIN-CODEINE Inactive ACETAMINOPHEN-CODEINE #3 300-30 MG TABS 1 PO Q 4-6 HRS PRN PAIN ACETAMINOPHEN-CODEINE #3 300-30 MG TABS 195369 ACETAMINOPHEN-CODEIN E Inactive CHERATUSSIN AC 100-10 MG/5ML SYRP 1 tsp by mouth every 4 hours as needed for cough CHERATUSSIN AC 100-10 MG/5ML SYRP 832780 GUAIFENESIN-CODEINE Inactive AUGMENTIN 875-125 MG TAB 1 tab by mouth twice daily with food 20 12/03/31 AUGMENTIN 875-125 MG TAB 990498 AMOXICILLIN-POT CLAVULA EFE Inactive CHERATUSSIN AC 100-10 MG/5ML SYRP take one tsp po Q 6hours prn c ough CHERATUSSIN AC 100-10 MG/5ML SYRP 823190 GUAIFENESIN-CO DEINE Inactive PROPRANOLOL HCL 60 MG TABS 1 PO Q D P ROPRANOLOL HCL 60 MG TABS 771009 PROPRANOLOL HCL Inactive TOPAMAX 50 MG TABS take 1 tab po BID for migraines. 12/07/10 TOPAMAX 50 MG TABS 920187 TOPIRAMATE Inactive TOPAMAX 25 MG TABS 1 qHS x 1 week, then 1 BID x 1 week, then 1 qAM and 2 qHS x 1 week, then 2 BID (migraine prevention) TOPAMAX 2 5 MG TABS 152649 TOPIRAMATE Inactive LYRICA 75 MG CAPS TAKE 1 CAPSULE BY MOUTH TWICE DAILY LYRICA 75 MG CAPS PREGABALIN Inactive SYMBICORT 160-4.5 MCG/ACT AERO 2 puffs bid with rinse after 2011 SYMBICORT 160-4.5 MCG/ACT AERO BUDESONIDE-FORMOT SÁNCHEZ FUMARATE Inactive PROMETHAZINE-CODEINE 6.25-10 MG/5ML SYRP 1 tsp by mouth ever y 8 hours prn cough PROMETHAZINE-CODEINE 6.25-10 MG/5ML SYRP 180282 PROMETHAZINE-CODEINE Inactive ZITHROMAX Z-REYNA 250 MG TABS 2 today, then 1 daily for 4 days 201 04/09/17 ZITHROMAX Z-REYNA 250 MG TABS 8824591 AZITHROMYCIN Inac tive CEFDINIR 300 MG CAPS by mouth twice a day CEFDINIR 300 MG CAPS 20020704 CEFDINIR Inactive CEFDINIR 300 MG CAPS by mouth twice a day CEFDINIR 300 MG CAPS 20020704 CEFDINIR Inactive CEFDINIR 300 MG CAPS by mouth twice a day CEFDINIR 300 MG CAPS 960252 CEFDINIR Inactive CEFDINIR 300 MG CAPS by mouth twice a day CEFDINIR 300 MG CAPS 20020704 CEFDINIR Inactive ZITHROMAX 250 MG TAB 2 po today, then 1 po q days 2-5 ZITHROMAX 250 MG TAB 3117403 AZITHROMYCIN Inactive CEFDINIR 300 MG CAPS by mouth twice a day CEFDINIR 300 MG CAPS 20020704 CEFDINIR Inactive PREDNISONE 20 MG TAB 2 tabs daily for 3 days, 1 t ab daily for 3 days, 1/2 tab daily for 2 days PREDNISONE 20 MG TAB 588081 PREDNISON E Inactive AVELOX 400 MG TABS 1 tab by mouth daily A VELOX 400 MG TABS 629985 MOXIFLOXACIN HCL Inactive AVELOX 400 MG TABS 1 tab by mouth daily A VELOX 400 MG TABS 629456 MOXIFLOXACIN HCL Inactive PREDNISONE 20 MG TAB Take 3 tabs daily for 3 days , 2 tabs daily for 3 days, 1 tab daily for 3 days, 1/2 tab daily for 3 days PREDNISONE 20 MG TAB 405917 PREDNISONE Inactive LEVAQUIN 500 MG TABS take one po QD LEVAQUIN 50 0 MG TABS 146846 LEVOFLOXACIN Inactive AZITHROMYCIN 250 MG TABS 2 po qd x 1 day, then 1 po qd x 4 days AZITHROMYCIN 250 MG TABS 6618152 AZITHROMYCIN Inactiv e MEDROL (REYNA) 4 MG TABS 6 tabs on day 1, 5 tabs on d ay 2, 4 tabs on day 3, 3 tabs on day 4, 2 tabs on day 5, 1 tab on day 6 MEDROL (REYNA) 4 MG TABS METHYLPREDNISOLONE Inactive CHERATUSSIN AC 100-10 MG/5ML SYRP 5ml po q6hr PRN Cough CHERATUSSIN AC 100-10 MG/5ML SYRP 782956 GUAIFENESIN-CODEINE Inacti ve TRIAMCINOLONE ACETONIDE 0.1 % CREA apply three times daily prn r beatrice TRIAMCINOLONE ACETONIDE 0.1 % CREA 3153529 TRIAMCINOLONE ACETONIDE Inactive AZITHROMYCIN 250 MG TABS 2 po qd x 1 day, then 1 po qd x 4 days AZITHROMYCIN 250 MG TABS 6639386 AZITHROMYCIN Inactiv e MEDROL (REYNA) 4 MG [...] days 20 13/03/08 AMOXICILLIN 500 MG CAP 719402 AMOXICILLIN Inactive AMOXICILLIN 500 MG CAP 1 tab by mouth 3 times daily x 10 days 20 14/04/28 AMOXICILLIN 500 MG CAP 365982 AMOXICILLIN Inactive Vital Signs Date Name Value [...] [phone] Encounters Code Encounter Date Provider Facility CPT-18283 Level 3 Est. Patient 10:03:07 CDT Perez Mora MD [facility]-48112 Level 3 Est. Patient 19:50:35 GENERAL INTERNAL MEDICINE DOCTOR Carlton rich MD [facility]-29489 Level 4 Est. Patient 18:05:01 GENERAL INTERNAL MEDICINE DOCTOR Carlton rich MD [facility]-53795 Level 3 Est. Patient 10:45:55 GENERAL INTERNAL MEDICINE DOCTOR Hugo Restrepo MD [facility]-92879 Level 3 Est. Patient 14:12:49 CDT Griffin HERNANDEZ [facility]-35794 Level 3 Est. Patient 17:37:24 CDT Carlton rich MD [facility]-38426 Level 3 Est. Patient 16:51:54 CDT Carlton rich MD [facility]-18771 Level 3 Est. Patient 12:18:11 CDT Hugo Restrepo MD [facility]-48552 Level 3 Est. Patient 11:30:25 CDT Marcy crisostomo MD PhD [facility]-72387 Level 3 Est. Patient 12:00:47 GENERAL INTERNAL MEDICINE DOCTOR Carlton rich MD [facility]-09968 Level 3 Est. Patient 16:31:06 GENERAL INTERNAL MEDICINE DOCTOR Carlton rich MD [facility]-16735 Level 3 Est. Patient 16:23:24 GENERAL INTERNAL MEDICINE DOCTOR Ridge tam DO [facility]-59332 Level 3 Est. Patient 12:34:12 CDT Carlton rich MD [facility] CPT-47645 Level 2 Est. Patient 15:43:33 CDT Robi armstrong MD [facility] CPT-36849 Level 4 Est. Patient 14:04:44 CDT Carlton rich MD [facility] CPT-53072 Level 3 Est. Patient 05:47:59 CDT Ridge tam DO [facility] CPT-51820 Level 3 Est. Patient 13:12:53 GENERAL INTERNAL MEDICINE DOCTOR Carlton rich MD [facility] CPT-10077 Level 3 Est. Patient 14:26:53 CDT Hugo Restrepo MD [facility] Procedures Code Procedure Name Date Entry Date Standard Desc ription CPT-90905 Fluzone Quadrivalent Intramuscular Suspe nsion 0.5 ML 14:31:55 CDT CPT-88202 Abx/Therapy Injection 13:28:47 GENERAL INTERNAL MEDICINE DOCTOR CPT-J2930 Solu Medrol 125 mg (Methyl Prednisolone Sodium Succinate) 12:00:47 GENERAL INTERNAL MEDICINE DOCTOR CPT-29032 Venipuncture Draw Fee 11:33:31 CDT CPT-20668 EKG Trac and Interp 11:21:09 CDT CPT-56292 Chest 2V Frontal and Lat 11:21:09 CDT 12/15 CPT-21859 Venipuncture Draw Fee 08:02:34 CDT CPT-45460 Chest 2V Frontal and Lat 05:47:59 CDT 06/05
[2019-10-08] MEDS ORDERED: HYDROmorphone 2 MG/ML VIAL (DILAUDID) IV ONE (10:30)
[2019-10-08] MEDS ORDERED: ONDANSETRON 4 MG/2 ML (SDV) Z0FRAN IVP PRN (10:30)
[2019-10-08] MEDS ORDERED: morphine INJ 10 MG/ML 1ML (SYR OR VIAL) IVP ONE (10:30)
--- NOTE | 2019-10-08 11:15 | Anesthesia-General Post-Op ---
General Patient Condition Mental Status/LOC: Same as Preop Cardiovascular: Satisfactory Nausea/Vomiting: Absent Respiratory: Satisfactory Pain: Controlled Complications: Absent Post Op Complications Complications None Follow Up Care/Instructions Patient Instructions None needed. Anesthesia/Patient Condition Patient Condition Patient is doing well, no complaints, stable vital signs, no apparent adverse anesthesia problems. No complications reported per nursing. KRISTEN GARCIA CRNA Oct 08, 2019 11:15
[2019-10-08] MEDS ORDERED: HYDR-83 PO (11:45)
[2019-10-08] MEDS ORDERED: predniSONE 20 MG TAB ONE (11:49)
[2019-10-08] MEDS ORDERED: PRD20T PO (11:49)
[2019-10-08] MEDS ORDERED: LEVO500T2 PO (11:49)
== END 2019-10-08 12:10 | disposition home or self-care (01) ==
LOC: SDC 06:48
PROVIDERS: ATTEND Otolaryngology Otolaryngology/Facial Plastic Surgery
DX: J32.9 Chronic sinusitis, unspecified (principal); J32.2 Chronic ethmoidal sinusitis; T70 Effects of air pressure and water pressure; J34.2 Deviated nasal septum; J34.3 Hypertrophy of nasal turbinates
CPT/HCPCS: 36415; 84132